=== PATIENT | male | born 1950 | race American Indian/Alaskan Native ===

== ENCOUNTER 2016-04-12 02:03 | Emergency (ER) | payer SELFPAY ==
[2016-04-12 02:37] VITALS: BP 154/90
== END 2016-04-12 03:04 | disposition left against medical advice (07) ==
LOC: ED 02:03
DX: R07.9 Chest pain, unspecified (principal); M79.1 Myalgia; Z53.21 Procedure and treatment not carried out due to patient leaving prior to being seen by health care provider
CPT/HCPCS: 93005; 93010

== ENCOUNTER 2016-04-21 09:40 | Emergency (ER) | payer SELFPAY | END 2016-04-21 22:00 | disposition left against medical advice (07) | LOC: ED 09:40 | DX: M79.1 Myalgia (principal); Z53.21 Procedure and treatment not carried out due to patient leaving prior to being seen by health care provider | CPT/HCPCS: 82962 ==

== ENCOUNTER 2016-04-22 16:45 | Inpatient (IN) | payer MEDICARE, OTHER ==
[2016-04-22] MEDS ORDERED: NACL 0.9% 1000 ML 2,000 ML ONE (17:28)
[2016-04-22] MEDS ORDERED: ROCEPHIN/NS 2 GM/100 ML 2 GM/100 ML BAG IV ONE (17:30)
[2016-04-22] MEDS ORDERED: TYLENOL PO ONE (17:30)
--- NOTE | 2016-04-22 17:31 | Emergency Department Report ---
ED General Adult HPI - General Chief complaint: Altered Mental Status Stated complaint: ALTERED MENTAL STATUS Time Seen by Provider: 04/22/16 17:21 Source: patient, EMS (ems notes not available at time of chart dictation), RN notes reviewed Mode of arrival: Stretcher Limitations: Other (patient is a poor historian.) - History of Present Illness Initial comments: This is a 65-year-old male, previously unknown to me. He is brought to the hospital by EMS. The patient complains of weakness and total body pain. He cannot describe exacerbating or relieving factors. Symptoms are constant. He admits to dry cough, denies abdominal pain, denies chest pain. He can't recall who his primary care doctor is. Family is not currently available. Medication list not currently available. History is limited as the patient is somewhat OF A poor historian. -: unknown Consistency: other (as per hpi) Improves with: other (as per hpi) Worsens with: other (as per hpi) Associated Symptoms: confusion - Related Data Allergies Allergy/AdvReac Type Severity Reaction Status Date / Time No Known Allergies Allergy Verified 04/12/16 02:40 ED Review of Systems ROS: Stated complaint: ALTERED MENTAL STATUS Other details as noted in HPI Constitutional: fever, malaise, weakness Eyes: denies: vision change ENT: denies: epistaxis Respiratory: see HPI Cardiovascular: as per HPI Gastrointestinal: denies: abdominal pain, nausea, diarrhea Genitourinary: denies: urgency, dysuria Musculoskeletal: arthralgia, myalgia Neurological: weakness Psychiatric: denies: anxiety ED Past Medical Hx - Past Medical History Previous Medical History?: Yes Hx Hypertension: Yes Hx Heart Attack/AMI: Yes Hx Diabetes: Yes Additional medical history: Chronic lower back and neck pain - Surgical History Past Surgical History?: Yes Additional Surgical History: left ankle - Social History Smoking Status: Current Every Day Smoker Substance Use Type: Alcohol ED Physical Exam - General Limitations: Physical Limitation General appearance: lethargic, other (the patient is lethargic but arousable. He is alert to name, month, year, location. He is able to state his address.) - Head Head exam: Present: atraumatic, normocephalic - Eye Eye exam: Present: normal appearance. Absent: nystagmus - ENT ENT exam: Present: mucous membranes dry, normal external ear exam - Neck Neck exam: Present: normal inspection, full ROM. Absent: tenderness, meningismus - Respiratory Respiratory exam: Present: normal lung sounds bilaterally. Absent: respiratory distress, wheezes, rales, rhonchi, stridor, chest wall tenderness - Cardiovascular Cardiovascular Exam: Present: normal rhythm, tachycardia, normal heart sounds. Absent: systolic murmur, diastolic murmur, rubs, gallop - GI/Abdominal GI/Abdominal exam: Present: soft, normal bowel sounds. Absent: distended, tenderness, guarding, rebound, rigid, pulsatile mass - Rectal Rectal exam: Present: deferred - exam: Present: normal inspection - Extremities Exam Extremities exam: Present: normal inspection, full ROM, normal capillary refill. Absent: tenderness, pedal edema, joint swelling, calf tenderness - Back Exam Back exam: Present: normal inspection, full ROM. Absent: tenderness, CVA tenderness (R), CVA tenderness (L), muscle spasm, paraspinal tenderness, vertebral tenderness - Neurological Exam Neurological exam: Present: oriented X3, other (Extraocular movements intact. Tongue midline. No facial droop. Facial sensation intact to light touch in the V1, V2, V3 distribution bilaterally. 5 and 5 strength in 4 extremities.. Sensation is intact to light touch in 4 extremities.). Absent: motor sensory deficit - Psychiatric Psychiatric exam: Present: flat affect - Skin Skin exam: Present: warm, dry, intact, normal color. Absent: rash ED Course Vital Signs 04/22/16 04/22/16 04/22/16 16:48 16:50 17:00 Temperature 98.7 F Pulse Rate 127 H 125 H Respiratory 30 H 23 Rate Blood Pressure 147/104 147/104 131/88 O2 Sat by Pulse 96 Oximetry 04/22/16 04/22/16 04/22/16 17:10 17:20 17:25 Temperature 101.0 F H Pulse Rate 120 H 129 H Respiratory 20 28 H Rate Blood Pressure 147/104 132/89 O2 Sat by Pulse 99 96 Oximetry 04/22/16 04/22/16 04/22/16 17:30 17:40 17:50 Temperature Pulse Rate 119 H 114 H 107 H Respiratory 29 H 24 20 Rate Blood Pressure 132/95 132/95 133/97 O2 Sat by Pulse 95 95 93 Oximetry 04/22/16 04/22/16 04/22/16 18:00 18:10 18:20 Temperature Pulse Rate 108 H 110 H 101 H Respiratory 21 22 15 Rate Blood Pressure 155/95 155/95 163/88 O2 Sat by Pulse 65 L 97 96 Oximetry 04/22/16 04/22/16 04/22/16 18:30 18:40 18:50 Temperature Pulse Rate 91 H 99 H 110 H Respiratory 15 15 18 Rate Blood Pressure 181/98 181/98 172/91 O2 Sat by Pulse 98 98 Oximetry 04/22/16 04/22/16 04/22/16 19:00 19:10 19:20 Temperature Pulse Rate 90 93 H 99 H Respiratory 15 16 21 Rate Blood Pressure 160/94 160/94 168/94 O2 Sat by Pulse 95 97 97 Oximetry 04/22/16 04/22/16 04/22/16 19:30 19:40 19:50 Temperature Pulse Rate 96 H 86 94 H Respiratory 20 16 20 Rate Blood Pressure 165/94 165/94 180/90 O2 Sat by Pulse 96 97 98 Oximetry 04/22/16 04/22/16 20:00 20:10 Temperature Pulse Rate 90 86 Respiratory 22 19 Rate Blood Pressure 176/91 176/91 O2 Sat by Pulse 98 98 Oximetry - Reevaluation(s) Reevaluation #1: 04/22/16 17:35 Differential diagnosis: Pneumonia, urinary tract infection, cholecystitis, viremia, bacteremia, influenza Assessment and plan: 65-year-old male with fever, tachycardia, generalized weakness. He is alert to name, month, year, location. There is no neck pain or neck stiffness. Blood cultures, urine cultures, basic laboratory studies, chest x-ray to be obtained. Time lactic acid is to be ordered. Influenza swab ordered. Empiric antibiotic therapy ordered. Aggressive IV fluid resuscitation is ordered. Reevaluation #2: 04/22/16 19:15 Laboratory studies indicate renal failure, hyponatremia, rhabdomyolysis. Influenza swab is still pending. Case is discussed with nephrology, Dr. Barth. Given that patient obviously meets sepsis criteria, has acute renal failure, has rhabdomyolysis, he requires aggressive fluid resuscitation. 3 L of IV fluid have been ordered. Nephrology recommends that after the 3 L of IV fluid, one half normal saline be initiated with 75 mEq of sodium bicarbonate, running at 125 mL per hour. Nephrology further states that it is okay to start the strip concomitantly with the 3 L of normal saline. He further recommends that after the 3 L of normal saline have completed, the patient should be started on normal saline as a drip at 125 mL per hour, to be run concomitantly with the sodium bicarbonate drip. He also recommends a urine sodium, and urine osmolality. He also recommends serial basic metabolic panel's every 4 hours. Case is discussed with the Hospital physician, Dr. Braun, who accepts the patient to his service. I have contacted the pharmacist, and requested the sodium bicarbonate drip. ED Medical Decision Making - Lab Data Result diagrams: 04/22/16 17:30 04/22/16 17:30 Vital Signs 04/22/16 04/22/16 17:00 17:25 Temperature 98.7 F 101.0 F H Pulse Rate 129 H Respiratory 25 H Rate Blood Pressure 147/104 O2 Sat by Pulse 97 Oximetry - EKG Data When compared to previous EKG there are: previous EKG unavailable 04/22/16 17:36 Sinus tachycardia, 120 bpm, poor R-wave progression, atrial enlargement, abnormal EKG, not consistent with STEMI, nonspecific changes when compared to old EKG. Critical care attestation.: If time is entered above; I have spent that time in minutes in the direct care of this critically ill patient, excluding procedure time. ED Disposition Clinical Impression: Acute febrile illness, Rhabdomyolysis, Renal failure, Hyponatremia Disposition: OP ADMITTED IP TO THIS HOSP Is pt being admited?: Yes Condition: Good
[2016-04-22 17:52] LABS: Hematocrit 48.8 % (35.5-45.6); Hemoglobin 16.8 gm/dl (11.8-15.2); Mean Corpuscular HGB Conc 34 % (32-34); Mean Corpuscular Hemoglobin 32 pg (28-32); Mean Corpuscular Volume 91 fl (84-94); Platelet Count 154 K/mm3 (140-440); Red Blood Count 5.34 M/mm3 (3.65-5.03)
[2016-04-22 17:53] LABS: Urine Drugs of Abuse Note Disclamer
[2016-04-22] MEDS ORDERED: NACL 0.9% 500 ML IV SCH (18:00)
[2016-04-22 18:11] LABS: Bilirubin,Urine NEG (Negative); Ketones,Urine TR mg/dL (Negative)
[2016-04-22 18:12] LABS: Bacteria,Urine 1+ /HPF (Negative); Blood,Urine LG (Negative); Leukocyte Esterase,Urine NEG (Negative); Mucus,Urine FEW /HPF; Nitrite,Urine NEG (Negative)
--- NOTE | 2016-04-22 18:20 | Admit Criteria Form ---
Admission Criteria Documentation: MUSCULOSKELETAL DISEASE GRG Clinical Indications for Admission to Inpatient Care (Place 'X' for any and all applicable criteria): Hospital admission is needed for appropriate care of the patient because of ANY ONE of the following: [ ]I. Fracture, dislocation, or other musculoskeletal injury requiring inpatient care(medical) as indicated by ANY ONE of the following(4)(5)(6)(7) [ ]a) Vertebral fracture requiring observation for instability or neurologic compromise (8) [ ]b) Compartment syndrome (proven or cannot be ruled out during observation level of care) (9) [ ]c) Limb-threatening injury [ ]d) Major injury requiring inpatient stabilization such as traction initiation or external fixation before internal fixation or closure of complex or open fracture [ ]e) Major injury requiring inpatient treatment after emergency or observation level care (as appropriate) [ ]f) Severe pain requiring acute inpatient management [ ]II. Newly diagnosed or suspected bone, joint, or orthopedic device infection (e.g., osteomyelitis, septic arthritis) needing ANY ONE of the following(1)(2)(3) [ ]a) IV antibiotics that cannot be initiated in other than inpatient setting (e.g., patient too unstable or home infusion not available) [ ]b) Device removal or replacement [ ]c) Bone or soft tissue debridement [ ]d) Joint drainage (drain placement or repetitive aspirations) [ ]III. Severe rheumatologic disease (e.g., systemic lupus erythematosus, rheumatoid arthritis) with complications or comorbidities (Also use Optimal Recovery Care Criteria or General Recovery Criteria as appropriate on the basis of predominant condition), including ANY ONE of the following(10 )(11)(12)(13) [ ]a) Severe infection (e.g., UPFITTER infection, sepsis) (14) [ ]b) Respiratory complications, including ANY ONE of the following: [ ]i) Pleural effusion with respiratory compromise [ ]ii) Pulmonary hypertension with congestive failure [ ]iii) Respiratory failure [ ]iv) Pulmonary hemorrhage (15) [ ]c) Hematologic disease, including ANY ONE of the following: [ ]i) Coagulopathy with bleeding [ ]ii) Thrombosis with hypercoagulable state [ ]iii) Thrombotic thrombocytopenic purpura [ ]d) Cerebritis with seizures, psychosis, or other severe abnormalities [ ]e) Vertebral destruction with monitoring needed for cervical myelopathy& possible respiratory compromise [ ]f) Exacerbation that requires inpatient treatment (e.g., intravenous immunosuppression) (16) [ ]g) Acute renal failure [ ]IV. Severe vasculitis with complications or comorbidities (Also use Optimal Recovery Care Criteria or General Recovery Criteria as appropriate on the basis of predominant condition), including ANY ONE of the following(11)(12)(17)(18)(19)(20) [ ]a) UPFITTER vasculitis with seizures, psychosis, or other severe abnormalities (22) [ ]b) Renal failure (16) [ ]c) Pulmonary hemorrhage (15) [ ]d) Cerebral infarction [ ]e) Gastrointestinal ischemia [ ]f) Gangrene or threatened amputation [ ]g) Exacerbation that requires inpatient treatment (e.g., intravenous immunosuppression) (19)(21) [ ]V. Severe myopathy as indicated by ANY ONE of the following (28)(29) [ ]a) New onset of airway compromise or inability to swallow [ ]b) Respiratory deterioration with observation needed for impending respiratory failure [ ]c) Exacerbation that requires inpatient treatment (e.g., intravenous immunosuppression) [ ]. Severe gout (crystal arthropathy) as indicated by ANY ONE of the following (23)(24) [ ]a) Severe pain requiring acute inpatient management [ ]b) Exacerbation that requires inpatient treatment (e.g., intravenous treatment) [X]VII.Rhabdomyolysis and ANY ONE of the following (25)(26)(27) [X]a) Acute renal failure [X]b) Need for intravenous hydration after emergency or observation level care (as appropriate) [ ]c) Inability to maintain oral hydration [X]d) Change in mental status [X]e) Electrolyte abnormality that remains after emergency or observation level care (as appropriate) [ ]VIII Post amputation complication, as indicated by ANY ONE of the following [ ]a) Infection [ ]b) Dehiscence [ ]c) Myodesis failure [ ]IX. Severe pain requiring acute inpatient management as indicated by ALL of the following (30)(31)(32) [ ]a) Continuous or frequent (e.g., every 2 to 4 hrs) parenteral analgesics required [A] [ ]b) Rapid improvement expected from treatment or acute intervention ( e.g., surgery, anesthesia procedure[B] [ ]X. Musculoskeletal Disease and ALL of the following: [ ]a) Symptom or finding for which emergency and observation care have failed or are not considered appropriate (Use General Criteria: Observation Care as appropriate) [ ]b) Presence of ANY ONE of the following [ ]i) A General Admission Criteria [ ]ii) A Pediatric General Admission Criteria The original [facility] content created by [facility] has been revised. The portions of the content which have been revised are identified through the use of italic text or in bold, and [facility] has neither reviewed nor approved the modified material. All other unmodified content is copyright [facility]. Please see references footnoted in the original [facility] edition 2016 Admission Criteria Met: Yes
[2016-04-22 18:40] LABS: Albumin 3.8 g/dL (3.9-5); Albumin/Globulin Ratio 0.7 %; BUN/Creatinine Ratio 10.8; Bilirubin,Total 1.3 mg/dL (0.1-1.2); Calcium 8.8 mg/dL (8.4-10.2); Chloride 73.4 mmol/L (98-107); Magnesium 2.1 mg/dL (1.7-2.3); Potassium 4.1 mmol/L (3.6-5.0); Total Protein 9.3 g/dL (6.3-8.2)
[2016-04-22 18:56] LABS: Basophils % (Manual) 0 % (0.0-1.8); Blastocytes % (Manual) 0 %; Eosinophils % (Manual) 0 % (0.0-4.3)
[2016-04-22 18:58] LABS: Anisocytosis 1+; Diff Status Complete; Large Platelets 1+; Platelet Estimate Consistent w Auto
[2016-04-22] MEDS ORDERED: NACL 0.9% 1000 ML 1,000 ML IV ONE (19:09)
--- NOTE | 2016-04-22 19:38 | XRay Report ---
FINAL REPORT PROCEDURE: XR CHEST 1V AP TECHNIQUE: Chest radiograph anteroposterior view. CPT 38105 HISTORY: fever ? PNA COMPARISON: No prior studies are available for comparison. FINDINGS: Heart: Normal. Mediastinum/Vessels: Normal. Lungs/Pleural space: Mild COPD with mild peribronchial cuffing. Calcified granulomata suspected in the left lower medial lung zone Bony thorax: No acute osseous abnormality. Life support devices: None. IMPRESSION: No acute cardiopulmonary abnormality.
[2016-04-22 19:53] LABS: Sodium, Urine 22 mEq/L
[2016-04-22] MEDS ORDERED: NACL 0.45% 1000 ML 1,000 ML with SODIUM BICARBONATE 75 MEQ IV ONE (20:00)
[2016-04-22] MEDS ORDERED: NACL 3% 500 ML IV ONE (22:18)
[2016-04-22] MEDS ORDERED: D5NS 1,000 ML IV SCH (23:00)
[2016-04-22] MEDS: TAMIFLU PO SCH (23:42)
[2016-04-23 00:53] LABS: Creatine Kinase MB 99.9 ng/mL (0.0-4.0)
[2016-04-23 06:11] LABS: Hematocrit 45.7 % (35.5-45.6); Hemoglobin 15.5 gm/dl (11.8-15.2); Mean Corpuscular HGB Conc 34 % (32-34); Mean Corpuscular Hemoglobin 31 pg (28-32); Mean Corpuscular Volume 91 fl (84-94); Platelet Count 114 K/mm3 (140-440); Red Cell Distribution Width 13.2 % (13.2-15.2); White Blood Count 10.4 K/mm3 (4.5-11.0)
[2016-04-23 06:24] LABS: Albumin 2.8 g/dL (3.9-5); Albumin/Globulin Ratio 0.7 %; BUN/Creatinine Ratio 11.07; Bilirubin,Total 0.6 mg/dL (0.1-1.2); Calcium 7.5 mg/dL (8.4-10.2); Chloride 84.4 mmol/L (98-107); Potassium 4.4 mmol/L (3.6-5.0); Total Protein 6.8 g/dL (6.3-8.2)
[2016-04-23 07:28] LABS: Basophils % (Manual) 0 % (0.0-1.8); Blastocytes % (Manual) 0 %; Eosinophils % (Manual) 0 % (0.0-4.3)
[2016-04-23 07:29] LABS: Anisocytosis 1+; Burr Cells Few; Diff Status Complete; Large Platelets Rare
[2016-04-23 07:30] LABS: Platelet Estimate Consistent w Auto; Polychromasia Few
--- NOTE | 2016-04-23 08:34 | Event Note ---
Date: 04/22/16 See H/p in reports Hyponatremia -severe Rhabdomyolysis Acute renal failure Viral syndrome
[2016-04-23] MEDS ORDERED: NACL 3% 500 ML IV ONE (08:56)
[2016-04-23] MEDS ORDERED: TYLENOL PO ONE (09:44)
[2016-04-23] MEDS: TAMIFLU PO SCH ×2 (10:03→22:07)
--- NOTE | 2016-04-23 10:12 | History and Physical Report ---
CHIEF COMPLAINT: 1. Altered mental status. 2. Severe weakness. 3. Fever. HISTORY OF PRESENT ILLNESS: A 65-year-old -[place] male with history of hypertension, coronary artery disease, type 2 diabetes, chronic low back pain, who comes to the hospital by EMS. Complains of weakness and body aches all over, and also fever, also had dry cough. Poor historian. He cannot tell his medications. He apparently had a fever of 101, but his most important complaint is weakness and body aches all over. Cough is nonproductive. No chest pain. PAST MEDICAL HISTORY: As mentioned, hypertension, coronary artery disease, type 2 diabetes, chronic low back pain, and neck pain. PAST SURGICAL HISTORY: Left ankle surgery. SOCIAL HISTORY: He smokes about a pack a day. No alcohol, no recreational drugs. FAMILY HISTORY: Significant for hypertension. REVIEW OF SYSTEMS: CONSTITUTIONAL: Fever and generalized body aches. Altered sensorium. HEENT: No sore throat, no postnasal drip. CARDIOVASCULAR AND RESPIRATORY: No shortness of breath, no chest pain, no wheezing. No wheezing and dry cough present. GASTROINTESTINAL: No nausea, no vomiting, no diarrhea. GENITOURINARY: No dysuria, no flank pain. MUSCULOSKELETAL: Has muscle pain all over, especially the thigh and the legs. CENTRAL NERVOUS SYSTEM: No syncope, no seizures. Altered sensorium present. SKIN: No rashes. PSYCHIATRIC: No depression. No suicidal ideation. A 14-point review of systems done, other than fever, joint pains, and dry cough. Review of systems essentially negative. PHYSICAL EXAMINATION: GENERAL: Elderly male, cooperative during examination. VITAL SIGNS: Temperature is 98.7, pulse is 127, respirations 30, blood pressure 147/104, repeat blood pressure was 132/95. HEENT: Dry mucous membranes. Pupils equal and reactive. NECK: Supple, no lymphadenopathy, no thyromegaly. LUNGS: Clear to auscultation and percussion. Good air entry. CARDIOVASCULAR: S1, S2 heard. No gallop, no murmur, no rub. Apical impulse in the left fifth intercostal space and midclavicular line. ABDOMEN: Soft and benign. No hepatosplenomegaly. No guarding, no rigidity. Hernial orifices are normal. EXTREMITIES: Good pedal pulses. No pedal edema. CENTRAL NERVOUS SYSTEM: Alert and oriented x4, but lethargic, easily arousable. SKIN: Normal. LABORATORY DATA: Significant for white count of 13,000, H and H 16.8 and 48.8, platelet count is 154,000. Sodium is 116, potassium is 4.1, BUN and creatinine is 27 and 2.5. Lactic acid is 3.7, creatinine kinase is 41,814. AST, ALT are high 970 and 192. Total bilirubin is 1.3. Urinalysis shows osmolality of 370 with wbc's are negative. Drug screen is negative. ASSESSMENT AND PLAN: 1. Severe viral syndrome. IV fluids for the time being, Tamiflu started. 2. Hyponatremia, severe with IV normal saline and 3% saline also started. 3% saline and 50 mL per hour for 10 hours, repeat as necessary. 3. Acute renal failure secondary to rhabdomyolysis. IV fluids for the time being. Nephrology consulted. 4. Rhabdomyolysis severe. IV fluids to prevent acute renal failure. 5. Transaminitis, AST, ALT are high, possibly part of the viral syndrome. We will monitor the liver enzymes. GI consultation if necessary. 6. Deep venous thrombosis prophylaxis, Lovenox 40 mg subcutaneous daily. In summary, the patient has rhabdomyolysis, hyponatremia, acute renal failure, and transaminitis, all can be attributed to severe viral syndrome. IV fluids and Tamiflu for now. Close monitoring. PROGNOSIS: Fair to guarded. JOB# [id number] [facility] MANUEL/[place]
--- NOTE | 2016-04-23 11:58 | Query-Infection ---
Dear Dr. Saúl Diaz Date: April 23, 2016 Broker Assistant/CDS: Sourav Clinton Phone#: Exercise your independent professional judgment when responding to this query. Questions asked do not imply a particular answer is desired or expected. We greatly appreciate your clarification on this issue. Clinical Documentation States: 65 y/o M with history of HTN, heart attack/AMI, DM & chronic lower back & neck pain is admitted for AMS. ED Note by Dr. Smith on 04/22 states : "Laboratory studies indicate renal failure, hyponatremia, rhabdomyolysis" Clinical findings show: (please check applicable parameters) 04/22 Temp 101.0 H (17:25) Pulse 127 H (16:50) Resp 30 H (16:50) WBC 13.0 H Lactate 2.3 H Medications : IV Ceftriaxone 2g x 1 3 General parameters [ x] Fever (core temp >38.30C or 100.40F) [ ] Hypothermia (core temp <36C) [ x] Heart rate >90 bpm [ ] Tachypnea: >20 bpm or pCO2 < 32 mmHg [ x] Altered mental status [ ] Significant edema / +ve fluid balance (>20 ml/kg 24 h) [ ] Hyperglycemia (Bl. glucose >110 mg/dl) w/o diabetes Inflammatory parameters [ x] Leukocytosis (white blood cell count >12,000/l) [ ] Leukopenia (white blood cell count <4,000/l) [ ] Bandemia (immature WBC > 10%) [ ] Leucocyte Left Shift [ ] Plasma procalcitonin>2 SD above the normal value Hemodynamic and tissue perfusion parameters [ ] Arterial hypotension(SBP <90 mmHg, MAP <70 mmHg,or a SBP drop >40 mmHg in adults) [ ] Hyperlactatemia (>3 mmol/l) [ ] Anion Gap (> 11mEG/l) [ ] Decreased capillary refill or mottling Organ dysfunction parameters [ ] Arterial hypoxemia (PaO2/FIO2 <300) [ ] Creatinine increase =0.5 mg/dl [ ] Acute oliguria (urine output <0.5 ml | kg |h or 45 mM/l for at least 2 hrs) [ ] Coagulation abnormalities (INR >1.5 or activated partial thromboplastin time >60 s) [ ] Ileus (absent teetee wel sounds) [ ] Thrombocytopenia (platelet count <100,000/l) [ ] Hyperbilirubinemia (plasma total bilirubin >4 mg/dl) According to the clinical indications above, can Bacteremia be further specified? If so, please indicate below and in your Progress Notes and/ or Discharge Summary. Indicate if the condition was present on admission. PHYSICIAN RESPONSE: [ X] Sepsis [ ] Severe Sepsis [ ] Septic Shock [ ] Septicemia [ ] Sepsis now resolved [ ] SIRS due to non-infectious cause with organ dysfunction [ ] SIRS due to non-infectious cause without organ dysfunction [ ] Other: [ ] Comment/Explanation: Present on Admission: [ X] Yes (Y) [ ] Clinically undeterminable (W) [ ] No (N) [ ] Ruled Out Please also document response in your Progress Notes and/or Discharge Summary and indicate if the condition was present on admission Notes: SIRS/ SIRS WITH ORGAN DYSFUNCTION Systemic inflammatory response syndrome (SIRS) generally refers to the systemic response to trauma/polanco or other insult such as Acute Myocardial Infarction, Acute Pancreatitis, and Major Surgery with symptoms including fever, tachycardia , tachypnea, and leukocytosis (1). BACTEREMIA Presence of viable bacteria in the circulating blood (2). This term is reserved for patients that do not manifest above SIRS response. SEPTICEMIA Generally refers to a systemic disease associated with the presence of pathological microorganisms or toxins in the blood, which can include bacteria, viruses, fungi or other organisms (1). SEPSIS Generally refers to SIRS due infection (1). SEVERE SEPSIS Generally refers to sepsis associated with acute organ dysfunction (1). SEPTIC SHOCK Generally refers to circulatory failure associated with severe sepsis (2), and defined as hypotension or hypoperfusion despite adequate fluid resuscitation (1 hour) (3). REFERENCES: 1. [place] [employer]/Society of Critical Care Medicine Consensus Conference. Definitions for sepsis and organ failure and guidelines for the use of innovative therapies in sepsis. Critical Care Med 1992;20:864 - 74. 2. Jimmy kay MM, Moises MP, Ganesh JIMBO, Rodo E, Vincent D, Alistair D, Alexx J, Alesia SM , Nadeem JL, Shannon G; International Sepsis Definitions Conference. 2001 SCCM/ESICM/ACCP/ATS/SIS International Sepsis Definitions Conference. Intensive Care Med. 2002 Apr;29(4):530-8. Epub 2002Jun 15. Review. PubMed PMID:[id number] 3. ICD-9-CM Official Guidelines for Coding and Reporting 4. Medscape Drugs, Diseases and Procedures references 5. [employer] Textbook of Internal Medicine. 18th Edition MTDD
--- NOTE | 2016-04-23 12:26 | Consultation ---
History of Present Illness - History of Present Illness Thank you for the consultation Patient is a very poor historian and appears not to be a very compliant patient Assessment and plan Renal failure in a patient who is 65-year-old currently admitted with, what appears to be acute renal failure slowly improving with rhabdomyolysis, patient has been seen and followed by [facility] [place] but does not recall having any kidney problems Rhabdomyolysis continue to monitor no indication for renal replacement therapy renal function appears to be improving monitor serial creatinine kinase etiology of rhabdomyolysis appears to be unclear Patient needs full workup for renal failure given that he is a very poor historian he is very poorly involving his healthcare as well Hyponatremia needs to be monitored closely to follow,chest x-ray unremarkable patient does have chronic cough Overall no acute emergent indication for renal replacement therapy I did want her to discuss with his family but patient told me not to he has a daughter in [place], but according to the patient her phone is not working. Extensively counseled and educated about the nature and severity of renal issues his overall long-term prognosis remains guarded to poor I have educated him to the best of my knowledge and believe regarding his current health status will change the bicarbonate drip and follow history of present illness Patient is a very poor historian he is 65-year-old and denies having any prior history of chronic kidney disease. He does not use any follow-up nonsteroidal drug any BC O Goody's powder either. He was seen by [facility] approximately a month ago and that was for his routine checkup. Patient does not recall his medications. He denies having any difficulty voiding does complain of generalized aches and pain appetite has been poor in the last 2-3 days. No history of any hematuria proteinuria pyuria Past medical history Patient stated that I do not have any medical problem Current allergies: None Current medication patient says that he is not taking any Social history patient still continues to smoke Denies any history of alcohol drug or substance abuse family history: Unremarkable for any renal related disorder Review of systems positive for generalized aches and pain cough nonproductive poor appetite ongoing tobacco use otherwise essentially unremarkable for all other system he wants to leave the hospital today as he has to pay some bills and is not concerned about his health at this point according to him that is more important than this Please be mindful that patient is extremely poor historian Medications and Allergies Allergies Allergy/AdvReac Type Severity Reaction Status Date / Time No Known Allergies Allergy Verified 04/12/16 02:40 Active Meds: Active Medications Dextrose/Sodium Chloride (D5ns) 1,000 mls @ 100 mls/hr IV DIRECT TAMMIE Sodium Chloride (Nacl 3%) 500 mls @ 40 mls/hr IV DIRECT ONE Stop: 04/23/16 21:25 Last Admin: 04/23/16 09:55 Dose: 40 mls/hr Oseltamivir Phosphate (Tamiflu) 75 mg PO BID TAMMIE Stop: 04/27/16 10:01 Last Admin: 04/23/16 10:03 Dose: 75 mg Exam - Vital Signs Vital signs: Vital Signs BP 147/104 04/22/16 16:48 - General Appearance General appearance: appears stated age (no acute distress) EENT: mucous membranes dry (somewhat dry today) Respiratory: Clear to Ascultation (no crackles rales or wheezes smells of tobacco) Heart: regular (S1-S2 normal no S3-S4) Gastrointestinal: Present: normal (soft nontender no organomegaly no renal bruit ) Integumentary: no rash (dry skin no edema peripheral pulses palpable no muscle tenderness) Neurologic: other (he is alert awake and follows commands no asterixis) Psychiatric: other (affect is flat) Results - Lab Results 04/23/16 04:27 04/23/16 04:27 reviewed from this admission Most recent lab results Calcium 7.5 mg/dL (8.4-10.2) L 04/23/16 04:27 Magnesium 2.1 mg/dL (1.7-2.3) 04/22/16 17:30 Urine Sodium 22 mEq/L 04/22/16 19:14
[2016-04-23] MEDS: SODIUM BICARBONATE 100 MEQ in STERILE WATER 1,000 ML IV SCH (22:07)
[2016-04-24] MEDS: TAMIFLU PO SCH ×2 (09:35→22:17)
--- NOTE | 2016-04-24 09:42 | Progress Note ---
Assessment and Plan possibly acute renal failure patient needs close monitoring of labs intake and output maintain hydration rule out any possibility of underlying chronic kidney disease patient is a very poor historian Hyponatremia clinically stable slowly improving Will obtain renal ultrasonogram today Rhabdomyolysis needs to monitor CPK level periodically No complaints of any myalgias Does have cough which is mostly dry Renal prognosis is guarded at this time Subjective Interval history: patient is seen today for follow-up of multiple renal related issues Denies any complaints of chest pain pressure or shortness of breath myalgias Events of 24 hours noted Wants to go home soon Objective - Vital Signs Vital signs: Vital Signs - 12hr 04/23/16 04/24/16 04/24/16 22:00 01:31 01:37 Temperature 97.4 F L Pulse Rate [ 85 85 Left] Pulse Rate [ 82 Right Radial] Respiratory 18 20 18 Rate Blood Pressure [Left Arm] Blood Pressure 137/75 [Right Radial Artery] O2 Sat by Pulse 95 98 95 Oximetry 04/24/16 04:10 Temperature 97.9 F Pulse Rate [ 85 Left] Pulse Rate [ Right Radial] Respiratory 18 Rate Blood Pressure 156/74 [Left Arm] Blood Pressure [Right Radial Artery] O2 Sat by Pulse 100 Oximetry - General Appearance General appearance: appears stated age EENT: mucous membranes moist Neck: no JVD Respiratory: Present: Clear to Ascultation (no rales or wheezes) Cardiology: regular - Lab 04/24/16 10:03 04/24/16 10:03 Most recent lab results Calcium 7.5 mg/dL (8.4-10.2) L 04/23/16 04:27 Magnesium 2.1 mg/dL (1.7-2.3) 04/22/16 17:30 Urine Creatinine 46.6 mg/dL (0.1-20.0) H 04/24/16 08:04 Urine Sodium 95 mEq/L 04/24/16 08:04
[2016-04-24 11:04] LABS: Basophils % (Auto) 0.2 % (0.0-1.8); Eosinophils % (Auto) 0.2 % (0.0-4.3); Mean Corpuscular HGB Conc 34 % (32-34); Mean Corpuscular Hemoglobin 32 pg (28-32); Mean Corpuscular Volume 92 fl (84-94); Platelet Count 111 K/mm3 (140-440); Red Blood Count 3.81 M/mm3 (3.65-5.03); Red Cell Distribution Width 12.8 % (13.2-15.2); White Blood Count 8.3 K/mm3 (4.5-11.0)
[2016-04-24 11:11] LABS: Albumin 2.3 g/dL (3.9-5); Albumin/Globulin Ratio 0.6 %; BUN/Creatinine Ratio 11.17; Bilirubin,Total 0.6 mg/dL (0.1-1.2); Calcium 7.3 mg/dL (8.4-10.2); Chloride 90.8 mmol/L (98-107); Potassium 3.7 mmol/L (3.6-5.0); Total Protein 5.9 g/dL (6.3-8.2)
[2016-04-24] MEDS: SODIUM BICARBONATE 100 MEQ in STERILE WATER 1,000 ML IV SCH ×2 (11:11→21:21)
[2016-04-24] MEDS: APRESOLINE IV SCH ×2 (17:25→18:15)
[2016-04-25] MEDS: APRESOLINE IV SCH ×4 (01:01→18:51)
--- NOTE | 2016-04-25 07:28 | Progress Note ---
Assessment and Plan - Patient Problems (1) Rhabdomyolysis Current Visit: Yes Status: Acute Qualifiers: Rhabdomyolysis type: R Encounter type: E Plan to address problem: IVF, bicarbonate drip, monitor uop q shift, ck in am. (2) Hyponatremia Current Visit: Yes Status: Acute Plan to address problem: supportive care, IVF replacement. (3) Renal failure Current Visit: Yes Status: Acute Plan to address problem: monitor uop q shift,IVF replacement, supportive care. (4) DVT prophylaxis Current Visit: Yes Status: Acute History Interval history: Pt resting comfortable in bed, Pt denies pain. Pt care plan discussed, No reported nursing events. Hospitalist Physical - Constitutional Vitals: Temp Pulse Resp BP Pulse Ox 97.3 F L 74 20 135/73 99 04/25/16 05:06 04/25/16 06:12 04/25/16 05:06 04/25/16 06:12 04/25/16 05:06 General appearance: Present: no acute distress - EENT Eyes: Present: PERRL, EOM intact ENT: hearing intact - Neck Neck: Present: supple - Respiratory Respiratory: bilateral: CTA - Cardiovascular Rhythm: regular Heart Sounds: Present: S1 & S2 - Extremities Extremities: no ischemia Peripheral Pulses: within normal limits - Abdominal General gastrointestinal: soft, non-tender, non-distended - Integumentary Integumentary: Present: clear, dry - Psychiatric Psychiatric: appropriate mood/affect, cooperative - Neurologic Neurologic: CNII-XII intact Results - Labs CBC & Chem 7: 04/24/16 10:03 04/24/16 10:03 Labs: Laboratory Last Values WBC 8.3 K/mm3 (4.5-11.0) 04/24/16 10:03 RBC 3.81 M/mm3 (3.65-5.03) 04/24/16 10:03 Hgb 12.0 gm/dl (11.8-15.2) D 04/24/16 10:03 Hct 35.0 % (35.5-45.6) L D 04/24/16 10:03 MCV 92 fl (84-94) 04/24/16 10:03 MCH 32 pg (28-32) 04/24/16 10:03 MCHC 34 % (32-34) 04/24/16 10:03 RDW 12.8 % (13.2-15.2) L 04/24/16 10:03 Plt Count 111 K/mm3 (140-440) L 04/24/16 10:03 Lymph % (Auto) 7.8 % (13.4-35.0) L 04/24/16 10:03 [place] % (Auto) 9.2 % (0.0-7.3) H 04/24/16 10:03 Eos % (Auto) 0.2 % (0.0-4.3) 04/24/16 10:03 Baso % (Auto) 0.2 % (0.0-1.8) 04/24/16 10:03 Lymph # 0.6 K/mm3 (1.2-5.4) L 04/24/16 10:03 [place] # 0.8 K/mm3 (0.0-0.8) 04/24/16 10:03 Eos # 0.0 K/mm3 (0.0-0.4) 04/24/16 10:03 Baso # 0.0 K/mm3 (0.0-0.1) 04/24/16 10:03 Add Manual Diff Complete 04/23/16 04:27 Total Counted 100 04/23/16 04:27 Seg Neutrophils % 82.6 % (40.0-70.0) H 04/24/16 10:03 Seg Neuts % (Manual) 61.0 % (40.0-70.0) 04/23/16 04:27 Band Neutrophils % 29.0 % 04/23/16 04:27 Lymphocytes % (Manual) 7.0 % (13.4-35.0) L 04/23/16 04:27 Reactive Lymphs % (Man) 0 % 04/23/16 04:27 Monocytes % (Manual) 3.0 % (0.0-7.3) 04/23/16 04:27 Eosinophils % (Manual) 0 % (0.0-4.3) 04/23/16 04:27 Basophils % (Manual) 0 % (0.0-1.8) 04/23/16 04:27 Metamyelocytes % 0 % 04/23/16 04:27 Myelocytes % 0 % 04/23/16 04:27 Promyelocytes % 0 % 04/23/16 04:27 Blast Cells % 0 % 04/23/16 04:27 Nucleated RBC % Not Reportable 04/23/16 04:27 Seg Neutrophils # 6.9 K/mm3 (1.8-7.7) 04/24/16 10:03 Seg Neutrophils # Man 6.3 K/mm3 (1.8-7.7) 04/23/16 04:27 Band Neutrophils # 3.0 K/mm3 04/23/16 04:27 Lymphocytes # (Manual) 0.7 K/mm3 (1.2-5.4) L 04/23/16 04:27 Abs React Lymphs (Man) 0.0 K/mm3 04/23/16 04:27 Monocytes # (Manual) 0.3 K/mm3 (0.0-0.8) 04/23/16 04:27 Eosinophils # (Manual) 0.0 K/mm3 (0.0-0.4) 04/23/16 04:27 Basophils # (Manual) 0.0 K/mm3 (0.0-0.1) 04/23/16 04:27 Metamyelocytes # 0.0 K/mm3 04/23/16 04:27 Myelocytes # 0.0 K/mm3 04/23/16 04:27 Promyelocytes # 0.0 K/mm3 04/23/16 04:27 Blast Cells # 0.0 K/mm3 04/23/16 04:27 WBC Morphology Not Reportable 04/23/16 04:27 Hypersegmented Neuts Not Reportable 04/23/16 04:27 Hyposegmented Neuts Not Reportable 04/23/16 04:27 Hypogranular Neuts Not Reportable 04/23/16 04:27 Smudge Cells Not Reportable 04/23/16 04:27 Toxic Granulation Not Reportable 04/23/16 04:27 Toxic Vacuolation Not Reportable 04/23/16 04:27 Dohle Bodies Not Reportable 04/23/16 04:27 Pelger-Huet Anomaly Not Reportable 04/23/16 04:27 Mendy Rods Not Reportable 04/23/16 04:27 Platelet Estimate Consistent w auto 04/23/16 04:27 Clumped Platelets Not Reportable 04/23/16 04:27 Plt Clumps, EDTA Not Reportable 04/23/16 04:27 Large Platelets Rare 04/23/16 04:27 Giant Platelets Not Reportable 04/23/16 04:27 Platelet Satelliting Not Reportable 04/23/16 04:27 Plt Morphology Comment Not Reportable 04/23/16 04:27 RBC Morphology Not Reportable 04/23/16 04:27 Dimorphic RBCs Not Reportable 04/23/16 04:27 Polychromasia Few 04/23/16 04:27 Hypochromasia Not Reportable 04/23/16 04:27 Poikilocytosis Not Reportable 04/23/16 04:27 Anisocytosis 1+ 04/23/16 04:27 Microcytosis Not Reportable 04/23/16 04:27 Macrocytosis Not Reportable 04/23/16 04:27 Spherocytes Not Reportable 04/23/16 04:27 Pappenheimer Bodies Not Reportable 04/23/16 04:27 Sickle Cells Not Reportable 04/23/16 04:27 Target Cells Not Reportable 04/23/16 04:27 Tear Drop Cells Not Reportable 04/23/16 04:27 Ovalocytes Not Reportable 04/23/16 04:27 Helmet Cells Not Reportable 04/23/16 04:27 Altman-[place]unker Bodies Not Reportable 04/23/16 04:27 [place] Rings Not Reportable 04/23/16 04:27 Joanne Cells Few 04/23/16 04:27 Bite Cells Not Reportable 04/23/16 04:27 Crenated Cell Not Reportable 04/23/16 04:27 Elliptocytes Not Reportable 04/23/16 04:27 Acanthocytes (Spur) Not Reportable 04/23/16 04:27 Rouleaux Not Reportable 04/23/16 04:27 Hemoglobin C Crystals Not Reportable 04/23/16 04:27 Schistocytes Not Reportable 04/23/16 04:27 Malaria parasites Not Reportable 04/23/16 04:27 Jeevan Bodies Not Reportable 04/23/16 04:27 Hem Pathologist Commnt No 04/23/16 04:27 Sodium 129 mmol/L (137-145) L D 04/24/16 10:03 Potassium 3.7 mmol/L (3.6-5.0) 04/24/16 10:03 Chloride 90.8 mmol/L (98-107) L 04/24/16 10:03 Carbon Dioxide 23 mmol/L (22-30) 04/24/16 10:03 Anion Gap 19 mmol/L 04/24/16 10:03 BUN 38 mg/dL (9-20) H 04/24/16 10:03 Creatinine 3.4 mg/dL (0.8-1.5) H 04/24/16 10:03 Estimated GFR 22 ml/min 04/24/16 10:03 BUN/Creatinine Ratio 11.17 % 04/24/16 10:03 Glucose 88 mg/dL (75-100) 04/24/16 10:03 POC Glucose 93 (70-105) 04/23/16 07:27 Lactic Acid 2.3 mmol/L (0.7-2.0) H* 04/22/16 20:58 Uric Acid 5.8 mg/dL (3.5-7.6) 04/23/16 19:48 Calcium 7.3 mg/dL (8.4-10.2) L 04/24/16 10:03 Magnesium 2.1 mg/dL (1.7-2.3) 04/22/16 17:30 Total Bilirubin 0.6 mg/dL (0.1-1.2) 04/24/16 10:03 AST 540 units/L (5-40) H 04/24/16 10:03 ALT 142 units/L (7-56) H 04/24/16 10:03 Alkaline Phosphatase 46 units/L (35-129) 04/24/16 10:03 Total Creatine Kinase 64531 units/L (55-170) H 04/24/16 10:03 CK-MB (CK-2) 99.9 ng/mL (0.0-4.0) H 04/23/16 00:09 CK-MB (CK-2) Rel Index 0.3 (0-4) 04/23/16 00:09 Total Protein 5.9 g/dL (6.3-8.2) L 04/24/16 10:03 Albumin 2.3 g/dL (3.9-5) L 04/24/16 10:03 Albumin/Globulin Ratio 0.6 % 04/24/16 10:03 TSH 0.855 mlU/mL (0.270-4.200) 04/23/16 19:47 Urine Color Naima (Yellow) 04/22/16 17:48 Urine Turbidity Cloudy (Clear) 04/22/16 17:48 Urine pH 5.0 (5.0-7.0) 04/22/16 17:48 Ur Specific [place] 1.014 (1.003-1.030) 04/22/16 17:48 Urine Protein 100 mg/dl mg/dL (Negative) 04/22/16 17:48 Urine Glucose (UA) Neg mg/dL (Negative) 04/22/16 17:48 Urine Ketones Tr mg/dL (Negative) 04/22/16 17:48 Urine Blood Lg (Negative) 04/22/16 17:48 Urine Nitrite Neg (Negative) 04/22/16 17:48 Urine Bilirubin Neg (Negative) 04/22/16 17:48 Urine Urobilinogen 2.0 mg/dL (<2.0) 04/22/16 17:48 Ur Leukocyte Esterase Neg (Negative) 04/22/16 17:48 Urine WBC (Auto) 3.0 /HPF (0.0-6.0) 04/22/16 17:48 Urine RBC (Auto) 1.0 /HPF (0.0-6.0) 04/22/16 17:48 U Epithel Cells (Auto) 1.0 /HPF (0-13.0) 04/22/16 17:48 Urine Bacteria (Auto) 1+ /HPF (Negative) 04/22/16 17:48 Urine Mucus Few /HPF 04/22/16 17:48 Urine Osmolality 370 Mosm/kg 04/22/16 19:14 Urine Creatinine 46.6 mg/dL (0.1-20.0) H 04/24/16 08:04 Urine Sodium 95 mEq/L 04/24/16 08:04 Salicylates < 0.3 mg/dL (2.8-20.0) L 04/22/16 17:30 Urine Opiates Screen Presumptive negative 04/22/16 17:48 Urine Methadone Screen Presumptive negative 04/22/16 17:48 Acetaminophen < 15.0 ug/mL (10.0-30.0) 04/22/16 17:30 Ur Barbiturates Screen Presumptive negative 04/22/16 17:48 Ur Phencyclidine Scrn Presumptive negative 04/22/16 17:48 Ur Amphetamines Screen Presumptive negative 04/22/16 17:48 U Benzodiazepines Scrn Presumptive negative 04/22/16 17:48 Urine Cocaine Screen Presumptive negative 04/22/16 17:48 U Marijuana (THC) Screen Presumptive negative 04/22/16 17:48 Drugs of Abuse Note Disclamer 04/22/16 17:48 Plasma/Serum Alcohol < 0.01 gm% (0-0.07) 04/22/16 17:30
[2016-04-25] MEDS: TAMIFLU PO SCH ×2 (09:37→22:41)
--- NOTE | 2016-04-25 12:45 | Ultrasound Report ---
Renal sonogram: History: Renal failure. Findings: Right kidney measures 12.6 x 4.9 x 5.7 cm. Cortical thickness is 1.4 cm. Left kidney measures 2.9 x 4.5 x 4.2 cm. Cortical thickness 1.6 cm. No mass. No hydronephrosis. Impression: Essentially negative renal sonogram.
--- NOTE | 2016-04-25 15:11 | Cat Scan Report ---
FINAL REPORT EXAM: CT HEAD/BRAIN WO CON HISTORY: weakness COMPARISON: None available. TECHNIQUE: Axial images obtained skull base through vertex. FINDINGS: No acute intracranial hemorrhage, midline shift or pathologic extra axial fluid collection. Mild to moderate volume loss with compensatory dilatation of the ventricular system and chronic small vessel ischemic disease. Otherwise, green-white differentiation preserved. Calvarium grossly intact. Moderate mucosal thickening of the left ethmoid air cells and left maxillary sinus. Near-complete opacification left mastoid air cells and tympanic cavity. Visualized orbits are grossly unremarkable. IMPRESSION: No grossly acute intracranial abnormality. Mild to moderate volume loss and chronic small vessel ischemic disease. Near-complete opacification left mastoid air cells and tympanic cavity. Moderate mucosal thickening left ethmoid air cells and left maxillary sinus.
--- NOTE | 2016-04-25 15:34 | Progress Note ---
Assessment and Plan - Patient Problems (1) Rhabdomyolysis Current Visit: Yes Status: Acute Qualifiers: Rhabdomyolysis type: R Encounter type: E Plan to address problem: IVF, bicarbonate drip, monitor uop q shift, ck in am. (2) Hyponatremia Current Visit: Yes Status: Acute Plan to address problem: supportive care, IVF replacement. (3) Renal failure Current Visit: Yes Status: Acute Plan to address problem: monitor uop q shift,IVF replacement, supportive care. (4) Debility Current Visit: Yes Status: Acute Plan to address problem: PT consulted, Case management consulted for D/C planning/placement (5) DVT prophylaxis Current Visit: Yes Status: Acute History Interval history: Pt resting comfortable in bed, Pt denies pain. Pt care plan discussed, No reported nursing events. Hospitalist Physical - Constitutional Vitals: Temp Pulse Resp BP Pulse Ox 97.8 F 83 20 156/84 98 04/25/16 07:30 04/25/16 12:22 04/25/16 07:30 04/25/16 12:22 04/25/16 07:30 General appearance: Present: no acute distress - EENT Eyes: Present: PERRL, EOM intact ENT: hearing intact - Neck Neck: Present: supple - Respiratory Respiratory: bilateral: diminished - Cardiovascular Rhythm: regular Heart Sounds: Present: S1 & S2 - Extremities Extremities: no ischemia Peripheral Pulses: within normal limits - Abdominal General gastrointestinal: soft, non-tender, non-distended, no hepatomegaly, no splenomegaly - Integumentary Integumentary: Present: clear, dry - Psychiatric Psychiatric: appropriate mood/affect, cooperative - Neurologic Neurologic: CNII-XII intact Results - Labs CBC & Chem 7: 04/24/16 10:03 04/24/16 10:03 Labs: Laboratory Last Values WBC 8.3 K/mm3 (4.5-11.0) 04/24/16 10:03 RBC 3.81 M/mm3 (3.65-5.03) 04/24/16 10:03 Hgb 12.0 gm/dl (11.8-15.2) D 04/24/16 10:03 Hct 35.0 % (35.5-45.6) L D 04/24/16 10:03 MCV 92 fl (84-94) 04/24/16 10:03 MCH 32 pg (28-32) 04/24/16 10:03 MCHC 34 % (32-34) 04/24/16 10:03 RDW 12.8 % (13.2-15.2) L 04/24/16 10:03 Plt Count 111 K/mm3 (140-440) L 04/24/16 10:03 Lymph % (Auto) 7.8 % (13.4-35.0) L 04/24/16 10:03 [place] % (Auto) 9.2 % (0.0-7.3) H 04/24/16 10:03 Eos % (Auto) 0.2 % (0.0-4.3) 04/24/16 10:03 Baso % (Auto) 0.2 % (0.0-1.8) 04/24/16 10:03 Lymph # 0.6 K/mm3 (1.2-5.4) L 04/24/16 10:03 [place] # 0.8 K/mm3 (0.0-0.8) 04/24/16 10:03 Eos # 0.0 K/mm3 (0.0-0.4) 04/24/16 10:03 Baso # 0.0 K/mm3 (0.0-0.1) 04/24/16 10:03 Add Manual Diff Complete 04/23/16 04:27 Total Counted 100 04/23/16 04:27 Seg Neutrophils % 82.6 % (40.0-70.0) H 04/24/16 10:03 Seg Neuts % (Manual) 61.0 % (40.0-70.0) 04/23/16 04:27 Band Neutrophils % 29.0 % 04/23/16 04:27 Lymphocytes % (Manual) 7.0 % (13.4-35.0) L 04/23/16 04:27 Reactive Lymphs % (Man) 0 % 04/23/16 04:27 Monocytes % (Manual) 3.0 % (0.0-7.3) 04/23/16 04:27 Eosinophils % (Manual) 0 % (0.0-4.3) 04/23/16 04:27 Basophils % (Manual) 0 % (0.0-1.8) 04/23/16 04:27 Metamyelocytes % 0 % 04/23/16 04:27 Myelocytes % 0 % 04/23/16 04:27 Promyelocytes % 0 % 04/23/16 04:27 Blast Cells % 0 % 04/23/16 04:27 Nucleated RBC % Not Reportable 04/23/16 04:27 Seg Neutrophils # 6.9 K/mm3 (1.8-7.7) 04/24/16 10:03 Seg Neutrophils # Man 6.3 K/mm3 (1.8-7.7) 04/23/16 04:27 Band Neutrophils # 3.0 K/mm3 04/23/16 04:27 Lymphocytes # (Manual) 0.7 K/mm3 (1.2-5.4) L 04/23/16 04:27 Abs React Lymphs (Man) 0.0 K/mm3 04/23/16 04:27 Monocytes # (Manual) 0.3 K/mm3 (0.0-0.8) 04/23/16 04:27 Eosinophils # (Manual) 0.0 K/mm3 (0.0-0.4) 04/23/16 04:27 Basophils # (Manual) 0.0 K/mm3 (0.0-0.1) 04/23/16 04:27 Metamyelocytes # 0.0 K/mm3 04/23/16 04:27 Myelocytes # 0.0 K/mm3 04/23/16 04:27 Promyelocytes # 0.0 K/mm3 04/23/16 04:27 Blast Cells # 0.0 K/mm3 04/23/16 04:27 WBC Morphology Not Reportable 04/23/16 04:27 Hypersegmented Neuts Not Reportable 04/23/16 04:27 Hyposegmented Neuts Not Reportable 04/23/16 04:27 Hypogranular Neuts Not Reportable 04/23/16 04:27 Smudge Cells Not Reportable 04/23/16 04:27 Toxic Granulation Not Reportable 04/23/16 04:27 Toxic Vacuolation Not Reportable 04/23/16 04:27 Dohle Bodies Not Reportable 04/23/16 04:27 Pelger-Huet Anomaly Not Reportable 04/23/16 04:27 Mendy Rods Not Reportable 04/23/16 04:27 Platelet Estimate Consistent w auto 04/23/16 04:27 Clumped Platelets Not Reportable 04/23/16 04:27 Plt Clumps, EDTA Not Reportable 04/23/16 04:27 Large Platelets Rare 04/23/16 04:27 Giant Platelets Not Reportable 04/23/16 04:27 Platelet Satelliting Not Reportable 04/23/16 04:27 Plt Morphology Comment Not Reportable 04/23/16 04:27 RBC Morphology Not Reportable 04/23/16 04:27 Dimorphic RBCs Not Reportable 04/23/16 04:27 Polychromasia Few 04/23/16 04:27 Hypochromasia Not Reportable 04/23/16 04:27 Poikilocytosis Not Reportable 04/23/16 04:27 Anisocytosis 1+ 04/23/16 04:27 Microcytosis Not Reportable 04/23/16 04:27 Macrocytosis Not Reportable 04/23/16 04:27 Spherocytes Not Reportable 04/23/16 04:27 Pappenheimer Bodies Not Reportable 04/23/16 04:27 Sickle Cells Not Reportable 04/23/16 04:27 Target Cells Not Reportable 04/23/16 04:27 Tear Drop Cells Not Reportable 04/23/16 04:27 Ovalocytes Not Reportable 04/23/16 04:27 Helmet Cells Not Reportable 04/23/16 04:27 Altman-Pickrell Bodies Not Reportable 04/23/16 04:27 [place] Rings Not Reportable 04/23/16 04:27 Joanne Cells Few 04/23/16 04:27 Bite Cells Not Reportable 04/23/16 04:27 Crenated Cell Not Reportable 04/23/16 04:27 Elliptocytes Not Reportable 04/23/16 04:27 Acanthocytes (Spur) Not Reportable 04/23/16 04:27 Rouleaux Not Reportable 04/23/16 04:27 Hemoglobin C Crystals Not Reportable 04/23/16 04:27 Schistocytes Not Reportable 04/23/16 04:27 Malaria parasites Not Reportable 04/23/16 04:27 Jeevan Bodies Not Reportable 04/23/16 04:27 Hem Pathologist Commnt No 04/23/16 04:27 Sodium 129 mmol/L (137-145) L D 04/24/16 10:03 Potassium 3.7 mmol/L (3.6-5.0) 04/24/16 10:03 Chloride 90.8 mmol/L (98-107) L 04/24/16 10:03 Carbon Dioxide 23 mmol/L (22-30) 04/24/16 10:03 Anion Gap 19 mmol/L 04/24/16 10:03 BUN 38 mg/dL (9-20) H 04/24/16 10:03 Creatinine 3.4 mg/dL (0.8-1.5) H 04/24/16 10:03 Estimated GFR 22 ml/min 04/24/16 10:03 BUN/Creatinine Ratio 11.17 % 04/24/16 10:03 Glucose 88 mg/dL (75-100) 04/24/16 10:03 POC Glucose 126 (70-105) H 04/25/16 11:47 Lactic Acid 2.3 mmol/L (0.7-2.0) H* 04/22/16 20:58 Uric Acid 5.8 mg/dL (3.5-7.6) 04/23/16 19:48 Calcium 7.3 mg/dL (8.4-10.2) L 04/24/16 10:03 Magnesium 2.1 mg/dL (1.7-2.3) 04/22/16 17:30 Total Bilirubin 0.6 mg/dL (0.1-1.2) 04/24/16 10:03 AST 540 units/L (5-40) H 04/24/16 10:03 ALT 142 units/L (7-56) H 04/24/16 10:03 Alkaline Phosphatase 46 units/L (35-129) 04/24/16 10:03 Total Creatine Kinase 13279 units/L (55-170) H 04/25/16 11:44 CK-MB (CK-2) 99.9 ng/mL (0.0-4.0) H 04/23/16 00:09 CK-MB (CK-2) Rel Index 0.3 (0-4) 04/23/16 00:09 Total Protein 5.9 g/dL (6.3-8.2) L 04/24/16 10:03 Albumin 2.3 g/dL (3.9-5) L 04/24/16 10:03 Albumin/Globulin Ratio 0.6 % 04/24/16 10:03 TSH 0.855 mlU/mL (0.270-4.200) 04/23/16 19:47 Urine Color Naima (Yellow) 04/22/16 17:48 Urine Turbidity Cloudy (Clear) 04/22/16 17:48 Urine pH 5.0 (5.0-7.0) 04/22/16 17:48 Ur Specific [place] 1.014 (1.003-1.030) 04/22/16 17:48 Urine Protein 100 mg/dl mg/dL (Negative) 04/22/16 17:48 Urine Glucose (UA) Neg mg/dL (Negative) 04/22/16 17:48 Urine Ketones Tr mg/dL (Negative) 04/22/16 17:48 Urine Blood Lg (Negative) 04/22/16 17:48 Urine Nitrite Neg (Negative) 04/22/16 17:48 Urine Bilirubin Neg (Negative) 04/22/16 17:48 Urine Urobilinogen 2.0 mg/dL (<2.0) 04/22/16 17:48 Ur Leukocyte Esterase Neg (Negative) 04/22/16 17:48 Urine WBC (Auto) 3.0 /HPF (0.0-6.0) 04/22/16 17:48 Urine RBC (Auto) 1.0 /HPF (0.0-6.0) 04/22/16 17:48 U Epithel Cells (Auto) 1.0 /HPF (0-13.0) 04/22/16 17:48 Urine Bacteria (Auto) 1+ /HPF (Negative) 04/22/16 17:48 Urine Mucus Few /HPF 04/22/16 17:48 Urine Osmolality 370 Mosm/kg 04/22/16 19:14 Urine Creatinine 46.6 mg/dL (0.1-20.0) H 04/24/16 08:04 Urine Sodium 95 mEq/L 04/24/16 08:04 Salicylates < 0.3 mg/dL (2.8-20.0) L 04/22/16 17:30 Urine Opiates Screen Presumptive negative 04/22/16 17:48 Urine Methadone Screen Presumptive negative 04/22/16 17:48 Acetaminophen < 15.0 ug/mL (10.0-30.0) 04/22/16 17:30 Ur Barbiturates Screen Presumptive negative 04/22/16 17:48 Ur Phencyclidine Scrn Presumptive negative 04/22/16 17:48 Ur Amphetamines Screen Presumptive negative 04/22/16 17:48 U Benzodiazepines Scrn Presumptive negative 04/22/16 17:48 Urine Cocaine Screen Presumptive negative 04/22/16 17:48 U Marijuana (THC) Screen Presumptive negative 04/22/16 17:48 Drugs of Abuse Note Disclamer 04/22/16 17:48 Plasma/Serum Alcohol < 0.01 gm% (0-0.07) 04/22/16 17:30
[2016-04-25] MEDS: SODIUM BICARBONATE 100 MEQ in STERILE WATER 1,000 ML IV SCH (19:14)
[2016-04-26] MEDS: APRESOLINE IV SCH ×4 (00:44→18:35)
[2016-04-26 02:36] LABS: Hematocrit 36.4 % (35.5-45.6); Hemoglobin 12.3 gm/dl (11.8-15.2); Mean Corpuscular HGB Conc 34 % (32-34); Mean Corpuscular Hemoglobin 31 pg (28-32); Mean Corpuscular Volume 91 fl (84-94); Platelet Count 154 K/mm3 (140-440); Red Blood Count 3.99 M/mm3 (3.65-5.03); Red Cell Distribution Width 12.6 % (13.2-15.2); White Blood Count 4.4 K/mm3 (4.5-11.0)
[2016-04-26 03:05] LABS: Albumin 2.6 g/dL (3.9-5); Albumin/Globulin Ratio 0.8 %; BUN/Creatinine Ratio 12.85; Bilirubin,Total 0.9 mg/dL (0.1-1.2); Calcium 7.7 mg/dL (8.4-10.2); Chloride 85.8 mmol/L (98-107); Potassium 3.2 mmol/L (3.6-5.0)
[2016-04-26 03:36] LABS: Basophils % (Manual) 0 % (0.0-1.8); Blastocytes % (Manual) 0 %; Eosinophils % (Manual) 0 % (0.0-4.3)
[2016-04-26 03:37] LABS: Anisocytosis 1+; Burr Cells Rare; Diff Status Complete; Elliptocytes Rare; Helmet Cells Few; Ovalocytes Few
[2016-04-26] MEDS: SODIUM BICARBONATE 100 MEQ in STERILE WATER 1,000 ML IV SCH ×2 (05:50→18:36)
--- NOTE | 2016-04-26 09:12 | Progress Note ---
Assessment and Plan - Patient Problems (1) Rhabdomyolysis Current Visit: Yes Status: Acute Qualifiers: Rhabdomyolysis type: R Encounter type: E Plan to address problem: CK levels slowly coming down (2) MIRANDA (acute kidney injury) Current Visit: Yes Status: Acute Plan to address problem: Scr down to 2.1- non oliguric. pt is on bicarb drip (3) Hypokalemia Current Visit: Yes Status: Acute Plan to address problem: supplement K. If CK levels improve- may stop bicarb drip (4) Hyponatremia Current Visit: Yes Status: Acute Plan to address problem: Na-129- monitor (5) Transaminitis Current Visit: Yes Status: Acute Plan to address problem: H/O Alcohol abuse-drinks beer per girl friend (6) Hypocalcemia Current Visit: Yes Status: Acute Plan to address problem: hypocalcemia with hypoalbuminemia- check Mg.P, ionised Calcium levels (7) Hypoalbuminemia Current Visit: Yes Status: Acute Subjective Date of service: 04/26/16 Interval history: pt is alert, denies CP or SOB Objective - Vital Signs Vital signs: Vital Signs - 12hr 04/26/16 04/26/16 04/26/16 00:44 05:49 05:52 Temperature 98.2 F Pulse Rate 101 H 104 H Pulse Rate [ 104 H Right Radial] Respiratory 20 Rate Blood Pressure 142/74 138/70 Blood Pressure 138/70 [Right Radial Artery] O2 Sat by Pulse 98 Oximetry - General Appearance General appearance: well-developed EENT: mucous membranes moist Neck: no JVD Respiratory: Present: Clear to Ascultation Cardiology: regular Gastrointestinal: normoactive bowel sounds Neurologic: alert and oriented x3 Musculoskeletal: other (no edema) Psychiatric: mood/affect appropriate, cooperative - Lab 04/26/16 02:25 04/26/16 02:25 Most recent lab results Calcium 7.7 mg/dL (8.4-10.2) L 04/26/16 02:25 Magnesium 2.1 mg/dL (1.7-2.3) 04/22/16 17:30 Urine Creatinine 46.6 mg/dL (0.1-20.0) H 04/24/16 08:04 Urine Sodium 95 mEq/L 04/24/16 08:04
--- NOTE | 2016-04-26 09:37 | Query- Renal Failure ---
Sera Edge____Juan Date: 04/26/16 Steel Fabricator/CDS:____Ricardo Dickey Phone#:____[phone] Exercise your independent professional judgment when responding to query. Questions asked do not imply a particular answer is desired or expected. We greatly appreciate your clarification on this issue. Clinical Documentation States: 65 year old Male was admitted on 04/22/16. The progress note (04/25/16) states " Renal failure acute, IVF placement " Clinical Findings Show: 04/24/16 04/26/16 Creatinine: 3.4 2.1 Please clarify if you mean: Acute Renal Failure with or due to: [ ] Tubular Necrosis [ ] Medullary Necrosis [x ] Vasomotor Nephropathy [ ] Shock Kidney [ ] Tubular Nephrosis [ ] Renal Tubular Stasis [ ] Cortical Necrosis [ ] Acute Renal Failure (unspecified) [ ] Lower Tubular Nephrosis [ ] Other: [ ] Not Applicable [ ] Clinically undeterminable Present on Admission: [ x] Yes (Y) [ ] Clinically undeterminable (W) [ ] No (N) Please also document response in your Progress Notes and/or Discharge Summary and indicate if the condition was present on admission. MTDD
--- NOTE | 2016-04-26 09:37 | Operative Report ---
TIME OF SERVICE: 9:45 in the morning. The patient was seen today for followup on multiple renal related issues. The patient denies any complaints of chest pain, pressure, shortness of breath, and had cough, which is improving. Does not complain of any specific myalgia like symptom, but does complain of right leg pain. No swelling. Continue to be tolerating fluid Vitals, labs, intake and output medications were reviewed. PHYSICAL EXAMINATION: HEENT: Normocephalic, atraumatic skull. Extraocular movements intact. NECK: Supple. CHEST: Essentially clear to auscultation anteriorly and posteriorly. New basilar crackles. HEART: Regular rate, S1, S2 heard. No S3, S4. ABDOMEN: Soft, nontender. EXTREMITIES: No edema, no tenderness in the right leg. No discoloration, no swelling. ASSESSMENT AND PLAN: 1. Renal failure in a patient who was a very poor historian, does not have however any known history of chronic kidney disease. Per the patient, he has been followed by [place]. Currently admitted with rhabdomyolysis and renal failure. Creatinine continues to improve. Monitor and maintain hydration. 2. Rhabdomyolysis, etiology, monitor serial CPK, maintain hydration, no indication for renal replacement therapy. If the rhabdomyolysis does not recall well, the patient may need a muscle biopsy. 3. Overall renal prognosis remains guarded at this time. The patient's medical record may need to be obtained from [place] physician if creatinine failed to improve. JOB# [id number] [place] [facility]
[2016-04-26] MEDS ORDERED: TAMIFLU PO SCH (10:00)
[2016-04-26] MEDS: K-DUR PO ONE (12:43)
[2016-04-26] MEDS ORDERED: K-DUR PO ONE (13:00)
--- NOTE | 2016-04-26 17:06 | Discharge Summary ---
Providers - Providers Date of Admission: 04/22/16 19:45 Attending physician: JUAN CHO 04/23/16 11:07 Physical Therapy Evaluation and Treat [CONS] Routine Comment: Reason For Exam: debility Primary care physician: CERTIFIED PUBLIC ACCOUNTANT Hospitalization Condition: Good Disposition: STILL A PATIENT - Discharge Diagnoses (1) Rhabdomyolysis Status: Acute Qualifiers: Rhabdomyolysis type: R Encounter type: E (2) Hyponatremia Status: Acute (3) Renal failure Status: Acute (4) Debility Status: Acute (5) DVT prophylaxis Status: Acute Core Measure Documentation - Palliative Care Palliative Care/ Comfort Measures: Not Applicable Exam - Constitutional Vitals: Temp Pulse Resp BP Pulse Ox 97.9 F 110 H 20 159/84 98 04/26/16 07:50 04/26/16 12:56 04/26/16 07:50 04/26/16 12:56 04/26/16 07:50 Plan Follow up with: WILLARD BARDALES MD [Primary Care Provider] - 3-5 Days
--- NOTE | 2016-04-26 19:43 | Progress Note ---
Assessment and Plan - Patient Problems (1) Rhabdomyolysis Current Visit: Yes Status: Acute Qualifiers: Rhabdomyolysis type: R Encounter type: E Plan to address problem: IVF, bicarbonate drip, monitor uop q shift, ck in am. (2) Hyponatremia Current Visit: Yes Status: Acute Plan to address problem: supportive care, IVF replacement. (3) Renal failure Current Visit: Yes Status: Acute Plan to address problem: monitor uop q shift,IVF replacement, supportive care. (4) Debility Current Visit: Yes Status: Acute Plan to address problem: PT consulted, Case management consulted for D/C planning/placement (5) DVT prophylaxis Current Visit: Yes Status: Acute History Interval history: Pt resting comfortable in bed, Pt denies pain. Pt care plan discussed, No reported nursing events. Case management consulted for D/C Planning. Pt discharged to SNF today. Medications reconciled. Hospitalist Physical - Constitutional Vitals: Temp Pulse Resp BP Pulse Ox 97.4 F L 107 H 18 150/84 98 04/26/16 17:55 04/26/16 18:35 04/26/16 17:55 04/26/16 18:35 04/26/16 07:50 General appearance: Present: no acute distress - EENT Eyes: Present: PERRL, EOM intact ENT: hearing intact - Neck Neck: Present: supple - Respiratory Respiratory: bilateral: diminished - Cardiovascular Rhythm: regular Heart Sounds: Present: S1 & S2 - Extremities Extremities: no ischemia Peripheral Pulses: within normal limits - Abdominal General gastrointestinal: soft, non-tender, non-distended - Integumentary Integumentary: Present: clear, dry - Psychiatric Psychiatric: appropriate mood/affect, cooperative - Neurologic Neurologic: CNII-XII intact Results - Labs CBC & Chem 7: 04/26/16 02:25 04/26/16 02:25 Labs: Laboratory Last Values WBC 4.4 K/mm3 (4.5-11.0) L 04/26/16 02:25 RBC 3.99 M/mm3 (3.65-5.03) 04/26/16 02:25 Hgb 12.3 gm/dl (11.8-15.2) 04/26/16 02:25 Hct 36.4 % (35.5-45.6) 04/26/16 02:25 MCV 91 fl (84-94) 04/26/16 02:25 MCH 31 pg (28-32) 04/26/16 02:25 MCHC 34 % (32-34) 04/26/16 02:25 RDW 12.6 % (13.2-15.2) L 04/26/16 02:25 Plt Count 154 K/mm3 (140-440) 04/26/16 02:25 Lymph % (Auto) 7.8 % (13.4-35.0) L 04/24/16 10:03 [place] % (Auto) Transportation Design Engineer 04/26/16 02:25 Eos % (Auto) 0.2 % (0.0-4.3) 04/24/16 10:03 Baso % (Auto) 0.2 % (0.0-1.8) 04/24/16 10:03 Lymph # 0.6 K/mm3 (1.2-5.4) L 04/24/16 10:03 [place] # 0.8 K/mm3 (0.0-0.8) 04/24/16 10:03 Eos # 0.0 K/mm3 (0.0-0.4) 04/24/16 10:03 Baso # 0.0 K/mm3 (0.0-0.1) 04/24/16 10:03 Add Manual Diff Complete 04/26/16 02:25 Total Counted 100 04/26/16 02:25 Seg Neutrophils % 82.6 % (40.0-70.0) H 04/24/16 10:03 Seg Neuts % (Manual) 80.0 % (40.0-70.0) H 04/26/16 02:25 Band Neutrophils % 0 % 04/26/16 02:25 Lymphocytes % (Manual) 10.0 % (13.4-35.0) L 04/26/16 02:25 Reactive Lymphs % (Man) 0 % 04/26/16 02:25 Monocytes % (Manual) 8.0 % (0.0-7.3) H 04/26/16 02:25 Eosinophils % (Manual) 0 % (0.0-4.3) 04/26/16 02:25 Basophils % (Manual) 0 % (0.0-1.8) 04/26/16 02:25 Metamyelocytes % 2.0 % 04/26/16 02:25 Myelocytes % 0 % 04/26/16 02:25 Promyelocytes % 0 % 04/26/16 02:25 Blast Cells % 0 % 04/26/16 02:25 Nucleated RBC % Not Reportable 04/26/16 02:25 Seg Neutrophils # 6.9 K/mm3 (1.8-7.7) 04/24/16 10:03 Seg Neutrophils # Man 3.5 K/mm3 (1.8-7.7) 04/26/16 02:25 Band Neutrophils # 0.0 K/mm3 04/26/16 02:25 Lymphocytes # (Manual) 0.4 K/mm3 (1.2-5.4) L 04/26/16 02:25 Abs React Lymphs (Man) 0.0 K/mm3 04/26/16 02:25 Monocytes # (Manual) 0.4 K/mm3 (0.0-0.8) 04/26/16 02:25 Eosinophils # (Manual) 0.0 K/mm3 (0.0-0.4) 04/26/16 02:25 Basophils # (Manual) 0.0 K/mm3 (0.0-0.1) 04/26/16 02:25 Metamyelocytes # 0.1 K/mm3 04/26/16 02:25 Myelocytes # 0.0 K/mm3 04/26/16 02:25 Promyelocytes # 0.0 K/mm3 04/26/16 02:25 Blast Cells # 0.0 K/mm3 04/26/16 02:25 WBC Morphology Not Reportable 04/26/16 02:25 Hypersegmented Neuts Not Reportable 04/26/16 02:25 Hyposegmented Neuts Not Reportable 04/26/16 02:25 Hypogranular Neuts Not Reportable 04/26/16 02:25 Smudge Cells Not Reportable 04/26/16 02:25 Toxic Granulation Not Reportable 04/26/16 02:25 Toxic Vacuolation Not Reportable 04/26/16 02:25 Dohle Bodies Not Reportable 04/26/16 02:25 Pelger-Huet Anomaly Not Reportable 04/26/16 02:25 Mendy Rods Not Reportable 04/26/16 02:25 Platelet Estimate Appears normal 04/26/16 02:25 Clumped Platelets Not Reportable 04/26/16 02:25 Plt Clumps, EDTA Not Reportable 04/26/16 02:25 Large Platelets Not Reportable 04/26/16 02:25 Giant Platelets Not Reportable 04/26/16 02:25 Platelet Satelliting Not Reportable 04/26/16 02:25 Plt Morphology Comment Not Reportable 04/26/16 02:25 RBC Morphology Not Reportable 04/26/16 02:25 Dimorphic RBCs Not Reportable 04/26/16 02:25 Polychromasia Not Reportable 04/26/16 02:25 Hypochromasia Not Reportable 04/26/16 02:25 Poikilocytosis Not Reportable 04/26/16 02:25 Anisocytosis 1+ 04/26/16 02:25 Microcytosis Not Reportable 04/26/16 02:25 Macrocytosis Not Reportable 04/26/16 02:25 Spherocytes Not Reportable 04/26/16 02:25 Pappenheimer Bodies Not Reportable 04/26/16 02:25 Sickle Cells Not Reportable 04/26/16 02:25 Target Cells Not Reportable 04/26/16 02:25 Tear Drop Cells Not Reportable 04/26/16 02:25 Ovalocytes Few 04/26/16 02:25 Helmet Cells Few 04/26/16 02:25 Altman-Britt Bodies Not Reportable 04/26/16 02:25 [place] Rings Not Reportable 04/26/16 02:25 Joanne Cells Rare 04/26/16 02:25 Bite Cells Not Reportable 04/26/16 02:25 Crenated Cell Not Reportable 04/26/16 02:25 Elliptocytes Rare 04/26/16 02:25 Acanthocytes (Spur) Not Reportable 04/26/16 02:25 Rouleaux Not Reportable 04/26/16 02:25 Hemoglobin C Crystals Not Reportable 04/26/16 02:25 Schistocytes Not Reportable 04/26/16 02:25 Malaria parasites Not Reportable 04/26/16 02:25 Jeevan Bodies Not Reportable 04/26/16 02:25 Hem Pathologist Commnt No 04/26/16 02:25 Sodium 129 mmol/L (137-145) L 04/26/16 02:25 Potassium 3.2 mmol/L (3.6-5.0) L 04/26/16 02:25 Chloride 85.8 mmol/L (98-107) L 04/26/16 02:25 Carbon Dioxide 30 mmol/L (22-30) D 04/26/16 02:25 Anion Gap 16 mmol/L 04/26/16 02:25 BUN 27 mg/dL (9-20) H 04/26/16 02:25 Creatinine 2.1 mg/dL (0.8-1.5) H 04/26/16 02:25 Estimated GFR 38 ml/min 04/26/16 02:25 BUN/Creatinine Ratio 12.85 % 04/26/16 02:25 Glucose 105 mg/dL (75-100) H 04/26/16 02:25 POC Glucose 110 (70-105) H 04/26/16 17:19 Lactic Acid 2.3 mmol/L (0.7-2.0) H* 04/22/16 20:58 Uric Acid 5.8 mg/dL (3.5-7.6) 04/23/16 19:48 Calcium 7.7 mg/dL (8.4-10.2) L 04/26/16 02:25 Magnesium 2.1 mg/dL (1.7-2.3) 04/22/16 17:30 Total Bilirubin 0.9 mg/dL (0.1-1.2) 04/26/16 02:25 AST 427 units/L (5-40) H 04/26/16 02:25 ALT 124 units/L (7-56) H 04/26/16 02:25 Alkaline Phosphatase 58 units/L (35-129) 04/26/16 02:25 Total Creatine Kinase 8903 units/L (55-170) H 04/26/16 07:38 CK-MB (CK-2) 99.9 ng/mL (0.0-4.0) H 04/23/16 00:09 CK-MB (CK-2) Rel Index 0.3 (0-4) 04/23/16 00:09 Total Protein 6.0 g/dL (6.3-8.2) L 04/26/16 02:25 Albumin 2.6 g/dL (3.9-5) L 04/26/16 02:25 Albumin/Globulin Ratio 0.8 % 04/26/16 02:25 TSH 0.855 mlU/mL (0.270-4.200) 04/23/16 19:47 Urine Color Naima (Yellow) 04/22/16 17:48 Urine Turbidity Cloudy (Clear) 04/22/16 17:48 Urine pH 5.0 (5.0-7.0) 04/22/16 17:48 Ur Specific [place] 1.014 (1.003-1.030) 04/22/16 17:48 Urine Protein 100 mg/dl mg/dL (Negative) 04/22/16 17:48 Urine Glucose (UA) Neg mg/dL (Negative) 04/22/16 17:48 Urine Ketones Tr mg/dL (Negative) 04/22/16 17:48 Urine Blood Lg (Negative) 04/22/16 17:48 Urine Nitrite Neg (Negative) 04/22/16 17:48 Urine Bilirubin Neg (Negative) 04/22/16 17:48 Urine Urobilinogen 2.0 mg/dL (<2.0) 04/22/16 17:48 Ur Leukocyte Esterase Neg (Negative) 04/22/16 17:48 Urine WBC (Auto) 3.0 /HPF (0.0-6.0) 04/22/16 17:48 Urine RBC (Auto) 1.0 /HPF (0.0-6.0) 04/22/16 17:48 U Epithel Cells (Auto) 1.0 /HPF (0-13.0) 04/22/16 17:48 Urine Bacteria (Auto) 1+ /HPF (Negative) 04/22/16 17:48 Urine Mucus Few /HPF 04/22/16 17:48 Urine Osmolality 370 Mosm/kg 04/22/16 19:14 Urine Creatinine 46.6 mg/dL (0.1-20.0) H 04/24/16 08:04 Urine Sodium 95 mEq/L 04/24/16 08:04 Salicylates < 0.3 mg/dL (2.8-20.0) L 04/22/16 17:30 Urine Opiates Screen Presumptive negative 04/22/16 17:48 Urine Methadone Screen Presumptive negative 04/22/16 17:48 Acetaminophen < 15.0 ug/mL (10.0-30.0) 04/22/16 17:30 Ur Barbiturates Screen Presumptive negative 04/22/16 17:48 Ur Phencyclidine Scrn Presumptive negative 04/22/16 17:48 Ur Amphetamines Screen Presumptive negative 04/22/16 17:48 U Benzodiazepines Scrn Presumptive negative 04/22/16 17:48 Urine Cocaine Screen Presumptive negative 04/22/16 17:48 U Marijuana (THC) Screen Presumptive negative 04/22/16 17:48 Drugs of Abuse Note Disclamer 04/22/16 17:48 Plasma/Serum Alcohol < 0.01 gm% (0-0.07) 04/22/16 17:30
[2016-04-27] MEDS: APRESOLINE IV SCH ×3 (00:15→14:03)
[2016-04-27] MEDS: SODIUM BICARBONATE 100 MEQ in STERILE WATER 1,000 ML IV SCH (05:36)
[2016-04-27 06:56] LABS: Albumin 2.6 g/dL (3.9-5); Albumin/Globulin Ratio 0.8 %; BUN/Creatinine Ratio 12.22; Bilirubin,Total 0.8 mg/dL (0.1-1.2); Calcium 7.9 mg/dL (8.4-10.2); Chloride 85.8 mmol/L (98-107); Potassium 3.1 mmol/L (3.6-5.0)
[2016-04-27 07:23] LABS: Magnesium 1.6 mg/dL (1.7-2.3); Phosphorous 2.6 mg/dL (2.5-4.5)
--- NOTE | 2016-04-27 07:48 | Discharge Summary ---
Providers - Providers Date of Admission: 04/22/16 19:45 Attending physician: CARLY GAN MD 04/23/16 11:07 Physical Therapy Evaluation and Treat [CONS] Routine Comment: Reason For Exam: debility Primary care physician: MANAGER CONFIGURATION Hospitalization Condition: Good Hospital course: 65 YO Male admitted for Rhabdomyolysis, Acute Renal Failure, Debility. Nephrology team consulted. Pt found to have debility and unable to conduct ADL' s independently. PT consulted. Case management consulted for D/C planning. Pt treated with supportive care. . Pt convalesced well during hospital course. Pt symptoms improved with therapy and supplemental oxygen. Pt medically optimized. Pt seen and evaluated prior to discharge but no significant new physical exam findings since admission. Pt discharged to SNF. Pt instructed to f/u pcp 1wk, Nephrology 1 wk with BMP. Pt to have outpatient f/u as per nephrology for CKD. 35 minutes dedicated to patient discharge and education. Pt counseled regarding increased protein intake. Pt to have Podiatry F/U as outpatient. Disposition: DC/[place] SNF W [facility] - Discharge Diagnoses (1) Rhabdomyolysis Status: Acute Qualifiers: Rhabdomyolysis type: R Encounter type: E (2) Hyponatremia Status: Acute (3) Renal failure Status: Acute (4) Debility Status: Acute (5) DVT prophylaxis Status: Acute Core Measure Documentation - Palliative Care Palliative Care/ Comfort Measures: Not Applicable - Core Measures Any of the following diagnoses?: none Exam - Constitutional Vitals: Temp Pulse Resp BP Pulse Ox 98.1 F 104 H 20 128/95 97 04/27/16 04:10 04/27/16 04:10 04/27/16 04:10 04/27/16 04:10 04/27/16 04:10 General appearance: Present: no acute distress, well-nourished - EENT Eyes: Present: PERRL ENT: hearing intact, clear oral mucosa - Neck Neck: Present: supple, normal ROM - Respiratory Respiratory effort: normal Respiratory: bilateral: CTA - Cardiovascular Heart Sounds: Present: S1 & S2. Absent: rub, click - Extremities Extremities: pulses symmetrical, No edema Peripheral Pulses: within normal limits - Abdominal General gastrointestinal: Present: soft, non-tender, non-distended, normal bowel sounds Male genitourinary: Present: normal - Integumentary Integumentary: Present: clear, warm, dry - Musculoskeletal Musculoskeletal: strength equal bilaterally, generalized weakness - Psychiatric Psychiatric: appropriate mood/affect, intact judgment & insight - Neurologic Neurologic: CNII-XII intact, moves all extremities Plan Activity: advance as tolerated Diet: renal Follow up with: PRIMARY CARE, [Primary Care Provider] - 3-5 Days
[2016-04-27] MEDS ORDERED: APRESOLINE IV PRN (09:14)
--- NOTE | 2016-04-27 09:22 | Progress Note ---
Assessment and Plan - Patient Problems (1) Rhabdomyolysis Status: Acute Qualifiers: Rhabdomyolysis type: R Encounter type: E (2) MIRANDA (acute kidney injury) Status: Acute (3) Hypokalemia Status: Acute (4) Hyponatremia Status: Acute (5) Transaminitis Status: Acute (6) Hypocalcemia Status: Acute (7) Hypoalbuminemia Status: Acute Subjective Date of service: 04/27/16 Interval history: not seen. pt was discharged Objective - Vital Signs Vital signs: Vital Signs - 12hr 04/27/16 04/27/16 04/27/16 00:00 00:15 04:10 Temperature 97.9 F 98.1 F Pulse Rate 86 Pulse Rate [ 104 H Apical] Pulse Rate [ 92 H Right Dorsalis Pedis] Respiratory 18 20 Rate Blood Pressure 164/91 128/95 [Right Radial Artery] O2 Sat by Pulse 100 97 Oximetry 04/27/16 08:00 Temperature 98.2 F Pulse Rate Pulse Rate [ 94 H Apical] Pulse Rate [ Right Dorsalis Pedis] Respiratory 20 Rate Blood Pressure 191/101 [Right Radial Artery] O2 Sat by Pulse 98 Oximetry - Lab 04/26/16 02:25 04/27/16 04:43 Most recent lab results Calcium 7.9 mg/dL (8.4-10.2) L 04/27/16 04:43 Phosphorus 2.6 mg/dL (2.5-4.5) 04/27/16 04:43 Magnesium 1.6 mg/dL (1.7-2.3) L 04/27/16 04:43 Urine Creatinine 46.6 mg/dL (0.1-20.0) H 04/24/16 08:04 Urine Sodium 95 mEq/L 04/24/16 08:04
[2016-04-27] MEDS ORDERED: K-DUR PO STA (09:23)
[2016-04-27] MEDS: K-DUR PO ONE (10:18)
--- NOTE | 2016-04-27 11:07 | Discharge Summary ---
Providers - Providers Date of Admission: 04/22/16 19:45 Date of discharge: 04/27/16 Attending physician: CARLY GAN MD 04/23/16 11:07 Physical Therapy Evaluation and Treat [CONS] Routine Comment: Reason For Exam: debility Primary care physician: WILLARD BARDALES MD Hospitalization Reason for admission: Please refer the D/C summary done by Dr Martinez Condition: Good Hospital course: Please refer the D/C summary done by Dr Martinez, This is opnly for medication reconciliation purpose only. Disposition: DC/TX SNF W [facility] Time spent for discharge: 10 minutes Core Measure Documentation - Palliative Care Palliative Care/ Comfort Measures: Not Applicable - Core Measures Any of the following diagnoses?: none Exam - Constitutional Vitals: Temp Pulse Resp BP Pulse Ox 98.2 F 94 H 20 191/101 98 04/27/16 08:00 04/27/16 09:41 04/27/16 08:00 04/27/16 09:41 04/27/16 08:00 Plan Follow up with: WILLARD BARDALES MD [Primary Care Provider] - 3-5 Days Prescriptions: traMADol 50 mg PO Q6H PRN #30 PRN Reason: Pain
[2016-04-27] MEDS ORDERED: K-DUR PO ONE (13:00)
[2016-04-27 14:13] VITALS: BP 141/78
[2016-04-28 20:10] LABS: Myeloperoxidase Antibody <1.0 AI (<1.0)
== END 2016-04-27 15:00 | DRG 871 ==
LOC: ED 16:45 → 4A 19:45
PROVIDERS: ADMIT Internal Medicine; ATTEND Internal Medicine
DX: A41.9 Sepsis, unspecified organism (principal); N17.0 Acute kidney failure with tubular necrosis; M62.82 Rhabdomyolysis; E87.1 Hypo-osmolality and hyponatremia; I25.2 Old myocardial infarction; G89.29 Other chronic pain; F17.210 Nicotine dependence, cigarettes, uncomplicated; B34.9 Viral infection, unspecified; N18.9 Chronic kidney disease, unspecified; I12.9 Hypertensive chronic kidney disease with stage 1 through stage 4 chronic kidney disease, or unspecified chronic kidney disease; E11.22 Type 2 diabetes mellitus with diabetic chronic kidney disease; E87.6 Hypokalemia; R74.0 Nonspecific elevation of levels of transaminase and lactic acid dehydrogenase [LDH]; E83.51 Hypocalcemia; E88.09 Other disorders of plasma-protein metabolism, not elsewhere classified
CPT/HCPCS: 36415; 70450; 71010; 76770; 80053; 80307; 80320; 81001; 82140; 82330; 82550; 82553; 82570; 82962; 83735; 83935; 84100; 84300; 84443; 84550; 85007; 85025; 86021; 86038; 86160; 86334; 87040; 87086; 87400; 93005; 93010; 96361; 96365; 99406; G0480; G8978-GP; G8979-GP; J0360; J0696; J7030

== ENCOUNTER 2016-09-25 19:51 | Emergency (ER) | payer MEDICARE ==
--- NOTE | 2016-09-25 20:48 | Cat Scan Report ---
FINAL REPORT PROCEDURE: CT HEAD/BRAIN WO CON TECHNIQUE: Computerized tomography of the head was performed without contrast material. HISTORY: fall, pain, slurred speech COMPARISON: 04/25/2016 FINDINGS: There are diffuse involutional changes, with prominence of the ventricles and the sulci. The intracranial arteries are symmetric in density. There is no evidence of acute hemorrhage, mass, hydrocephalus, or acute territorial infarction. Calvarium is intact. There is minimal left maxillary sinus mucosal thickening. Small amount of fluid is seen in the left mastoid. There is right posterior scalp soft tissue swelling. IMPRESSION: No CT evidence of acute intracranial abnormality. Mild right posterior scalp soft tissue swelling
--- NOTE | 2016-09-25 20:57 | Cat Scan Report ---
FINAL REPORT PROCEDURE: CT CERVICAL SPINE WO CON TECHNIQUE: Computerized tomography of the cervical spine was performed from the skull base to T1 without contrast material. HISTORY: fall, pain, slurred speech COMPARISON: No prior studies are available for comparison. FINDINGS: There is straightening of the usual cervical lordosis. The vertebral body heights and alignment are maintained. Multilevel degenerative disc changes are present, with DISH type changes. No acute fracture or subluxation is identified. IMPRESSION: No acute fracture or subluxation is seen.
--- NOTE | 2016-09-25 20:58 | Emergency Department Report ---
ED Head Injury/Laceration HPI - HPI Occurred When: Today Mechanism: Direct Blow Location: Occipital Pain: None Tetanus Status: Up to Date Symptoms: Loss of Consciousness: No, Nausea: No, Blurred Vision: No, Unusual Behavior: No, Headache: No, Swelling: No, Bruising: No, Break in Skin: No, Bleeding: No ED General PMH - Past Medical History General Medical History: other (alcoholic) Surgical History: no surgical history - Family History Significant Family History: no pertinent family hx - Social History Smoking Status: Current Every Day Smoker ED Review of Systems ROS: Stated complaint: LACERATION TO HEAD Other details as noted in HPI Constitutional: denies: chills, fever Eyes: denies: eye pain, eye discharge, vision change Respiratory: denies: cough, orthopnea, shortness of breath, SOB with exertion Head Inj w/lac Physical Exam - Exam General: Vital signs noted. No distress. Alert and acting appropriately. Head: Yes PERRL, No Hemotympanum, No Hematoma/Ecchymosis, No Epistaxis, No Stepoff/Deformity, No Abrasion Wound Length (cm): 2 Laceration Location: Occipital Chest, Abd, & Ext: No Neck Pain, No Clear Lung Sounds, No Chest Injury/Pain, No Regular Heart Rhythm, No Heart Murmur Neuroligical (Head Inj W/O Lac: No Lethargy, No Disorientation, No Focal Numbness, No Focal Weakness, No Normal Speech (slightly dysarthric from intoxication) - Laceration /Wound Repair Occipital Wound Location: head Wound's Depth, Shape: superficial Wound Explored: clean Betadine Prep?: No Number of Sutures: 2 (keysha) Sterile Dressing Applied?: No ED Disposition Clinical Impression: Alcohol intoxication, Laceration of head Disposition: DC-01 TO HOME OR SELFCARE Is pt being admited?: No Condition: Stable Instructions: Laceration (ED), Alcohol Intoxication (ED) Additional Instructions: Please return to have keysha removed within 5 days Referrals: PRIMARY CARE, [Primary Care Provider] - 3-5 Days
[2016-09-25 21:01] LABS: Basophils % (Auto) 0.8 % (0.0-1.8); Eosinophils % (Auto) 3.9 % (0.0-4.3); Hematocrit 29.3 % (35.5-45.6); Mean Corpuscular HGB Conc 34 % (32-34); Mean Corpuscular Hemoglobin 33 pg (28-32); Mean Corpuscular Volume 97 fl (84-94); Platelet Count 381 K/mm3 (140-440); Red Blood Count 3.02 M/mm3 (3.65-5.03); Red Cell Distribution Width 15.7 % (13.2-15.2); White Blood Count 6.5 K/mm3 (4.5-11.0)
[2016-09-25 21:14] LABS: Anion Gap 19 mmol/L; Blood Urea Nitrogen 8 mg/dL (9-20); Calcium 8.6 mg/dL (8.4-10.2); Carbon Dioxide 23 mmol/L (22-30); Chloride 95.5 mmol/L (98-107); Glucose 75 mg/dL (75-100); Potassium 4.1 mmol/L (3.6-5.0); Sodium 133 mmol/L (137-145)
[2016-09-25 22:20] VITALS: BP 125/69
== END 2016-09-25 22:20 | disposition home or self-care (01) ==
LOC: ED 19:51
DX: S01.01XA Laceration without foreign body of scalp, initial encounter (principal); F10.129 Alcohol abuse with intoxication, unspecified; F17.200 Nicotine dependence, unspecified, uncomplicated; X58.XXXA Exposure to other specified factors, initial encounter; Y93.89 Activity, other specified; Y99.8 Other external cause status; Y92.89 Other specified places as the place of occurrence of the external cause
CPT/HCPCS: 12001; 36415; 70450; 72125; 80048; 85025; 99284; G0480; 80320

== ENCOUNTER 2018-12-29 11:22 | Emergency (ER) | payer MEDICARE ==
--- NOTE | 2018-12-29 11:57 | Cat Scan Report ---
CT head/brain wo con INDICATION / CLINICAL INFORMATION: 68 years Male; Stroke symptoms. TECHNIQUE: Routine CT head without contrast. All CT scans at this location are performed using CT dos e reduction for ALARA by means of automated exposure control. COMPARISON: The previous exams are not to currently available for direct comparison. FINDINGS: BRAIN / INTRACRANIAL CONTENTS: The motion and positioning degrade the image quality at. However, ther e is no old infarct involving the left occipital lobe with encephalomalacia. There otherwise appears to be mild cerebral white matter disease most consistent with microvascular angiopathy. There is advanced cerebral atrophy with associated prominence of the ventricular system. There is als o relative prominence of the CSF along the posterior right cerebral convexity measuring approximately 5 mm in greatest transverse dimension. This finding may reflect a hygroma. There is no CT evidence o f acute intracranial ORBITS: No significant abnormality of visualized orbits. SINUSES / MASTOIDS: There is mild mucosal thickening within the left maxillary sinus. CRANIOCERVICAL JUNCTION: No significant abnormality. ADDITIONAL FINDINGS: None. IMPRESSION: 1. There is an old infarct involving the left occipital lobe. There is otherwise mild microvascular a ngiopathy without CT ends of acute intracranial hemorrhage. 2. There is relative prominence of the CSF attenuation along the posterior right cerebral convexity w hich may reflect small hygroma. 3. There is advanced cerebral atrophy, most notably involving the temporal lobes. The study was specified as code stroke and called emergently to Dr. Herman in the ER at 10:52 AM [facility] standard time. Signer Name: Mathew Zhou MD Signed: 12/29/2018 11:52 AM Workstation Name: [id number]
--- NOTE | 2018-12-29 12:18 | Cat Scan Report ---
CT cervical spine wo con INDICATION / CLINICAL INFORMATION: 68 years Male; fall. TECHNIQUE: Axial CT images of the cervical spine were obtained. Sagittal and coronal reformatted images were pr oduced. All CT scans at this location are performed using CT dose reduction for ALARA by means of aut omated exposure control. COMPARISON: None available. FINDINGS: POST-SURGICAL CHANGES: None. ALIGNMENT: There is a transverse fracture extending to the C4-L5 disc level with component of the sup erior endplate of C5. This finding would appear to be in the setting of ankylosing spondylitis given the transverse in orientation with disruption of the anterior and posterior longitudinal ligaments wh ich are calcified at. There is approximately 12 mm of distraction of the anterior margins along with notable retrolisthesis of C4. Additionally, the angulation of C5 and anterior subluxation of the jayleen cular facets results in marked in degree of spinal stenosis at this segment. VERTEBRAE: There are also fractures involving spinous process of C5 with approximately 3 mm of distra ction at. There is a mildly displaced fracture of the spinous process and posterior lamina of C6. There is prominent anterior osteophytic formation at C7-T1. INTRAVERTEBRAL DISCS: There is more prominent ossification of the posterior longitudinal ligament at the C2-3 level with effacement of the ventral subarachnoid space at. Is mild spondylosis at C3-4. The re is moderate left neural foraminal narrowing at this level. The spondylosis on the left at C5-6 effaces the left lateral recess at. There is moderate foraminal n arrowing bilaterally at. The spondylosis at C6-7 effaces the ventral subarachnoid space at. There sotero ears be moderate left neural foraminal narrowing. There is moderate edema involving the prevertebral soft tissues at C4-5. More inferiorly, there is he terogeneous soft tissue lesion anterior to the visualized T1-T3 levels measuring approximately 3.2 si milar AP by 3.17 m transverse in greatest dimensions at. There is associated displacement of the esop hagus anteriorly at. This finding may represent associated hematoma. Dedicated imaging of the thorax may be considered to fully evaluate this finding. There are small calcified granuloma involving visua lized posterior right lung apex. PARASPINAL SOFT TISSUES: No significant abnormality. ADDITIONAL FINDINGS: None. IMPRESSION: 1. There is a transverse fracture at C4-L5 which appears to be in the setting of ankylosing spondylit is with associated subluxation and anterior distraction as detailed above. The findings result in mar ked spinal stenosis. 2. Additionally, there are displaced fractures involving the spinous processes and posterior lamina o f C5 and C6 as described. 3 there are multilevel degenerative changes involving the cervical spine as described.. Additionally, the ossification the posterior longitudinal ligament at C2-3 effaces the ventral subarachnoid space. 4. There is heterogeneous lesion along the prevertebral soft tissues at the visualized T1-T2 3 levels as detailed above The findings medical detail representative positive clinical test result and were discovered at 1110 a.m. and called to Dr. Herman in the ER at 11:12 AM Central standard time. Signer Name: Mathew Zhou MD Signed: 12/29/2018 12:14 PM Workstation Name: [id number]
[2018-12-29 12:23] LABS: Basophils % (Auto) 0.5 % (0.0-1.8); Eosinophils # (Auto) 0.1 K/mm3 (0.0-0.4); Eosinophils % (Auto) 1.2 % (0.0-4.3); Hematocrit 33.4 % (35.5-45.6); Hemoglobin 11.3 gm/dl (11.8-15.2); Lymphocytes # (Auto) 0.5 K/mm3 (1.2-5.4); Lymphocytes % (Auto) 12.4 % (13.4-35.0); Mean Corpuscular HGB Conc 34 % (32-34); Mean Corpuscular Volume 90 fl (84-94); Monocytes # (Auto) 0.4 K/mm3 (0.0-0.8); Monocytes % (Auto) 9.5 % (0.0-7.3); Platelet Count 186 K/mm3 (140-440); Red Cell Distribution Width 16.4 % (13.2-15.2)
[2018-12-29 12:33] VITALS: BP 137/69
[2018-12-29 12:37] LABS: Creatine Kinase MB 24.2 ng/mL (0.0-4.0)
[2018-12-29 12:39] LABS: Thrombin Time 15.3 Sec. (15.1-19.6)
[2018-12-29 12:40] LABS: Alanine Aminotransferase 16 units/L (7-56); Albumin 3.6 g/dL (3.9-5); BUN/Creatinine Ratio 24; Blood Urea Nitrogen 24 mg/dL (9-20); Calcium 9.1 mg/dL (8.4-10.2); Hemolysis Index 3
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
--- NOTE | 2018-12-29 22:13 | Consultation ---
History of Present Illness Consult date: 12/29/18 Reason for Consult: stroke alert History of present illness: [facility] Date of Service: 12/29/2018 11:16:45 Impression: RO Acute Ischemic Stroke Comments: d/w ED doc in detail- advanced stroke w/u inpatient, not a candidate for acute therapy given >24 hours since LKN Mechanism of Stroke: Not Clear Metrics: Last Known Well: Unknown [facility] Notification Time: 12/29/2018 11:16:45 Arrival Time: 12/29/2018 11:21:44 Stamp Time: 12/29/2018 11:16:45 Time First Login Attempt: 12/29/2018 11:18:42 Video Start Time: 12/29/2018 11:18:42 Symptoms: Left sided weakness NIHSS Start Assessment Time: 12/29/2018 11:37:49 Patient is not a candidate for tPA. Patient was not deemed candidate for tPA thrombolytics because of Last Well Known Above 4.5 Hours. Video End Time: 12/29/2018 11:44:12 CT head was not reviewed. Advanced imaging CTA head and neck obtained. ER physician notified of the decision on thrombolytics management. Our recommendations are outlined below. Recommendations: Antiplatelet Therapy Recommended Recommended Scan: MRI Head Echocardiogram - Transthoracic Echocardiogram DVT prophylaxis: Choice of Primary Team Disposition: Follow up with Teleneurology Follow up Sign Out: Discussed with Emergency Department Provider History of Present Illness: Patient is a 68 years old Male. Patient was brought by EMS for symptoms of Left sided weakness Called out to [facility]ient for a fall, fell this morning 1.5 hours ago and hasn't been acting normal since then, he is unable to squeeze on left side; unable to talk in full sentences; has had a stroke in the past 86/52 BP; gave him 1 bag fluids; bp came up 115/69; has ST elevated noted; he had been normal- somehow she woke up and he then told her he fell; no number for and she is on the way to the hospital per EMS CT head was not reviewed. Examination: 1A: Level of Consciousness - Requires repeated stimulation to arouse + 2 1B: Ask Month and Age - Could Not Answer Either Question Correctly + 2 1C: Blink Eyes & Squeeze Hands - Performs 0 Tasks + 2 2: Test Horizontal Extraocular Movements - Normal + 0 3: Test Visual Bai - No Visual Loss + 0 4: Test Facial Palsy (Use Grimace if Obtunded) - Minor paralysis (flat nasolabial fold, smile asymetry) + 1 5A: Test Left Arm Motor Drift - No Effort Against Maben + 3 5B: Test Right Arm Motor Drift - Some Effort Against Maben + 2 6A: Test Left Leg Motor Drift - No Effort Against Maben + 3 6B: Test Right Leg Motor Drift - No Effort Against Maben + 3 7: Test Limb Ataxia (FNF/Heel-Saha) - Does Not Understand + 0 8: Test Sensation - Complete Loss: Cannot Sense Being Touched At All + 2 9: Test Language/Aphasia - Coma/Unresponsive + 3 10: Test Dysarthria - Mute/Anarthric + 2 11: Test Extinction/Inattention - No abnormality + 0 NIHSS Score: 25 Patient was informed the Neurology Consult would happen via TeleHealth consult by way of interactive audio and video telecommunications and consented to receiving care in this manner. Due to the immediate potential for life-threatening deterioration due to underlying acute neurologic illness, I spent 35 minutes providing critical care. This time includes time for face to face visit via telemedicine, review of medical records, imaging studies and discussion of findings with providers, the patient and/or family. Dr Debra Miner [facility] Medications and Allergies Allergies Allergy/AdvReac Type Severity Reaction Status Date / Time No Known Allergies Allergy Unverified 09/09/16 16:29 Home Medications Medication Instructions Recorded Confirmed Last Taken Type Lipitor 80 mg PO DAILY 04/27/16 08/06/16 08/06/16 History traMADol 50 mg PO Q6H PRN #30 04/27/16 08/06/16 08/06/16 Rx ALBUTEROL Inhaler (OR & NICU) 2 puff IH QID PRN 08/06/16 08/06/16 08/06/16 History [ProAir HFA Inhaler] Aspirin [Adult Low Dose Aspirin EC] 81 mg PO DAILY 08/06/16 08/06/16 08/06/16 History Budesoni/Formotero 160-4.5(Nf) 2 puff IH BID 08/06/16 08/06/16 Unknown History [Symbicort 160-4.5 (Nf)] Divalproex ER [Depakote ER] 500 mg PO QDAY 08/06/16 08/06/16 08/06/16 History Folic Acid [Folvite] 1 mg PO QDAY 08/06/16 08/06/16 08/06/16 History Multivit with Calcium,Iron,Min 1 each PO DAILY 08/06/16 08/06/16 08/06/16 History [Multiple Vitamins For Women] Nicotine [Habitrol] 14 mg TD DAILY 08/06/16 08/06/16 Unknown History Paliperidone Palmitate [Invega 78 mg IM Q4W 08/06/16 08/06/16 Unknown History Sustenna] Tamsulosin [Flomax] 0.4 mg PO QDAY 08/06/16 08/06/16 08/05/16 History Thiamine [Vitamin B-1] 100 mg PO QDAY 08/06/16 08/06/16 08/06/16 History Vit C/Vit E AC/Selenium/Ginkgo 1 each PO DAILY 08/06/16 08/06/16 Unknown History [V-R Memory Complex Caplet] Physical Examination - Vital Signs Vital Signs: Vital Signs BP 134/69 12/29/18 11:41 Results - Laboratory Findings CBC and BMP: 12/29/18 11:59 12/29/18 11:59 Abnormal Lab Findings: Abnormal Labs 12/29/18 12/29/18 11:59 11:59 WBC 4.1 L Hgb 11.3 L Hct 33.4 L RDW 16.4 H Lymph % (Auto) 12.4 L [place] % (Auto) 9.5 H Lymph # 0.5 L Seg Neutrophils % 76.4 H Sodium 135 L Chloride 95.2 L BUN 24 H AST 69 H Total Creatine Kinase 1080 H CK-MB (CK-2) 24.2 H Albumin 3.6 L
== END 2018-12-29 13:37 | disposition other institution (70) ==
LOC: ED 11:22
DX: S12.300A Unspecified displaced fracture of fourth cervical vertebra, initial encounter for closed fracture (principal); I10 Essential (primary) hypertension; E11.9 Type 2 diabetes mellitus without complications; J44.9 Chronic obstructive pulmonary disease, unspecified; F31.9 Bipolar disorder, unspecified; F20.9 Schizophrenia, unspecified; M54.5 Low back pain; M54.2 Cervicalgia; G89.29 Other chronic pain; Z79.899 Other long term (current) drug therapy; W01.198A Fall on same level from slipping, tripping and stumbling with subsequent striking against other object, initial encounter; Y93.89 Activity, other specified; Y92.89 Other specified places as the place of occurrence of the external cause; Y99.8 Other external cause status
CPT/HCPCS: 36415; 70450; 72125; 80053; 80320; 82550; 82553; 82962; 84484; 85025; 85610; 85670; 85730; 93005; 93010; 99291; G0480

== ENCOUNTER 2019-07-03 19:45 | Inpatient (IN) | payer MEDICARE ==
[2019-07-03] MEDS ORDERED: LIP THERAPY VASELINE TP PRN (19:56)
[2019-07-03] MEDS ORDERED: MINERAL OIL/PETROLATUM, WHITE OPHTH OINT 3.5 GM OU PRN (19:56)
[2019-07-03] MEDS ORDERED: SODIUM CHLORIDE 0.9% 1000 ML 1,000 ML IV ONE (19:57)
--- NOTE | 2019-07-03 20:04 | Emergency Department Report ---
HPI - General Time Seen by Provider: 07/03/19 19:56 PUI?: Yes - HPI HPI: 69-year-old male presents to the emergency department via EMS from home with respiratory failure and an unresponsive episode. Apparently the patient was seen going unresponsive by family. When EMS got there the patient had agonal breathing and a faint pulse. He was intubated and received some IV fluid in route. Apparently the patient is DNR and hospice but the family was unable to provide the appropriate paperwork. The patient has history of cervical spine fracture, allegedly a fracture of some level of his back, and is bed bound. He also has a history of a seizure disorder, hypertension, diabetes, previous CVA. Apparently the patient received a dose of his high-dose of hyoscamine just before this all occurred this evening. ED Past Medical Hx - Past Medical History Hx Hypertension: Yes Hx CVA: Yes (with R sided deficits) Hx Heart Attack/AMI: Yes Hx Diabetes: Yes Hx Seizures: Yes Hx Psychiatric Treatment: Yes (schizophrenia, Bipolar) Hx COPD: Yes Hx HIV: No Additional medical history: Chronic lower back and neck pain - Surgical History Hx Pacemaker: No Hx Internal Defibrillator: No Additional Surgical History: left ankle - Social History Smoking Status: Never Smoker Substance Use Type: None - Medications Home Medications: Home Medications Medication Instructions Recorded Confirmed Last Taken Type Lipitor 80 mg PO DAILY 04/27/16 08/06/16 08/06/16 History traMADol 50 mg PO Q6H PRN #30 04/27/16 08/06/16 08/06/16 Rx Albuterol INH(or & Nicu Only) 2 puff IH QID PRN 08/06/16 08/06/16 08/06/16 History [ProAir HFA Inhaler] Aspirin [Adult Low Dose Aspirin EC] 81 mg PO DAILY 08/06/16 08/06/16 08/06/16 History Budesoni/Formotero 160-4.5(Nf) 2 puff IH BID 08/06/16 08/06/16 Unknown History [Symbicort 160-4.5 (Nf)] Divalproex ER [Depakote ER] 500 mg PO QDAY 08/06/16 08/06/16 08/06/16 History Folic Acid [Folvite] 1 mg PO QDAY 08/06/16 08/06/16 08/06/16 History Multivit with Calcium,Iron,Min 1 each PO DAILY 08/06/16 08/06/16 08/06/16 History [Multiple Vitamins For Women] Nicotine [Habitrol] 14 mg TD DAILY 08/06/16 08/06/16 Unknown History Paliperidone Palmitate [Invega 78 mg IM Q4W 08/06/16 08/06/16 Unknown History Sustenna] Tamsulosin [Flomax] 0.4 mg PO QDAY 08/06/16 08/06/16 08/05/16 History Thiamine [Vitamin B-1] 100 mg PO QDAY 08/06/16 08/06/16 08/06/16 History Vit C/Vit E AC/Selenium/Ginkgo 1 each PO DAILY 08/06/16 08/06/16 Unknown History [V-R Memory Complex Caplet] ED Review of Systems ROS: Stated complaint: CARDIAC ARREST Other details as noted in HPI Comment: Unobtainable due to pts medical conditions Physical Exam - Physical Exam Physical Exam: GENERAL: Patient is ill-appearing and unresponsive. HENT: Normocephalic. Atraumatic. Patient has moist mucous membranes. EYES: Unequal pupils but reactive to light. Left pupil is about 4 mm and right pupil is about 2 mm. NECK: Supple. Trachea is midline. CHEST/LUNGS: Rhonchi heard. Patient is intubated but does have spontaneous shallow breaths. HEART/CARDIOVASCULAR: Regular. There is mild tachycardia. ABDOMEN: Abdomen is soft, nontender. Patient has normal bowel sounds. SKIN: Skin is warm and dry. NEURO: Patient is altered and unresponsive. Not following any commands. Withdraws from painful stimuli. MUSCULOSKELETAL: +2/4 femoral and radial pulses. - ABG Interpretation Ph: 7.238 PCO2: 36 PO2: 210 Bicarbonate: 15 Interpretation: metabolic acidosis - Central Line Placement Right Femoral Consent Obtained: emergent situation Time Out Performed: Yes Patient Placed on Monitor/Pulse Ox: Yes MD Prep: mask, gown, gloves Central Line Prep: Chlorhexidine scrub Local Anesthesia Used: Lidocaine 1% Amount of Anesthesia Used (mls): 2 Ultrasound Used for Placement: Yes Central Line Lumen Inserted: triple Bloods Obtained for Lab: Yes Central Line Position: good blood return, all ports aspirated, flus, sutured in place with nyl Dressing Applied: Tegaderm, sterile gauze/tape Patient Tolerated Procedure: well Complications: none ED Medical Decision Making - Lab Data Result diagrams: 07/03/19 22:20 07/03/19 19:57 - EKG Data -: EKG Interpreted by Me EKG shows normal: sinus rhythm, axis, intervals (Prolonged QTC), QRS complexes (Q waves to the inferior leads), ST-T waves Rate: normal - EKG Data When compared to previous EKG there are: no significant change Interpretation: unchanged when compared t (12/29/18) - Radiology Data Radiology results: report reviewed CHEST 1 VIEW INDICATION / CLINICAL INFORMATION: MAIN: ETT placement; Pt presents via EMS with a cheif complaint of respiratory arrest. EMS reports that when they arrival pt was having agonal breathing. Pt was intubated with7.0 tube 17 at teeth. Pt was recently discharge from hospice.. COMPARISON: Chest radiograph 09/09/2016 FINDINGS: SUPPORT DEVICES: Endotracheal tube tip in the midthoracic trachea in the usual position. HEART / MEDIASTINUM: No significant abnormality. LUNGS / PLEURA: Bilateral patchy and consolidative pulmonary opacities are present, mostly in the right lung. No pleural fluid or pneumothorax. Multiple old rib fractures on the left. No acute skeletal abnormality is seen. Multilevel degenerative changes in the thoracic spine. IMPRESSION: Extensive pulmonary parenchymal disease, mostly in the right lung, suggestive of a pneumonia. Atypical/viral etiologies should be considered. CT HEAD WITHOUT CONTRAST INDICATION / CLINICAL INFORMATION: Altered mental status, Pt is on a vent!. TECHNIQUE: All CT scans at this location are performed using CT dose reduction for ALARA by means of automated exposure control. COMPARISON: CT dated 12/29/18 FINDINGS: HEMORRHAGE: None. EXTRA-AXIAL SPACES: Moderately prominent but unchanged. VENTRICULAR SYSTEM: Mildly enlarged but unchanged. CEREBRAL PARENCHYMA: White matter hypodensities likely represent microangiopathy. No definite acute territorial infarct. MIDLINE SHIFT OR HERNIATION: None. CEREBELLUM / BRAINSTEM: No significant abnormality. ORBITS: Normal as visualized. SOFT TISSUES of HEAD: No significant abnormality. CALVARIUM: No significant abnormality. PARANASAL SINUSES / MASTOID AIR CELLS: Normal as visualized. ADDITIONAL FINDINGS: None. IMPRESSION: 1. No acute intracranial abnormality. 2. Chronic and age-related findings appear unchanged. - Medical Decision Making This patient presented to the emergency department from home intubated and unresponsive. Patient was found to be hypothermic and hypotensive. He was given IV fluid resuscitation but did not have any improvement in the hypotension so I placed a central line catheter in the right femoral vein and the patient was started on pressors. Chest x-ray shows bilateral pneumonia. CT scan of the head without contrast does not show any acute bleed, shift, mass, ischemia, or any other acute process. Patient's labs shows a leukocytosis of about 30,000. He has anemia with a hemoglobin of 7.7. Patient also has hyponatremia, lactic acidosis, slightly elevated troponin level and a mild urinary tract infection. The patient was started on antibiotics for the UTI and pneumonia. Despite the leukocytosis, the patient has bilateral pneumonia, bouts of hypoxemia despite being on the ventilator, lymphopenia, and therefore the patient is still a person under investigation for COVID-19. The patient was placed in droplet precautions immediately upon arrival. Every time I have been in his room I have used full PPE including a surgical cap, double gloves, and 95 mask and goggles. I did have a conversation with the patient's but the patient remains a full code despite his previous DNR and hospice status. Patient will be admitted to the ICU and has been accepted for admission by the hospitalist, Dr. Mahmood. Critical Care Time: Yes Critical care time in (mins) excluding proc time.: 75 Critical care attestation.: If time is entered above; I have spent that time in minutes in the direct care of this critically ill patient, excluding procedure time. Due to the immediate potential for life-threatening deterioration due to underlying pulmonary, cardiac and metabolic conditions, I spent 75 minutes of critical care time with the patient. This does not include the time spent doing the central line procedure. Critical Care Time: 75 minutes ED Disposition Clinical Impression: Suspected COVID-19 virus infection, Hyponatremia, Hypoalbuminemia Sepsis Qualifiers: Sepsis type: sepsis due to unspecified organism Sepsis acute organ dysfunction status: unspecified Qualified Code(s): A41.9 - Sepsis, unspecified organism Bilateral pneumonia Qualifiers: Pneumonia type: due to unspecified organism Lung location: unspecified part of lung Qualified Code(s): J18.9 - Pneumonia, unspecified organism Hypotension Qualifiers: Hypotension type: unspecified hypotension type Qualified Code(s): I95.9 - Hypotension, unspecified Altered mental status Qualifiers: Altered mental status type: unspecified Qualified Code(s): R41.82 - Altered mental status, unspecified Disposition: DC-[id number] OP ADMIT IP TO THIS HOSP Is pt being admited?: Yes Condition: Critical Time of Disposition: 00:26
--- NOTE | 2019-07-03 20:54 | XRay Report ---
CHEST 1 VIEW INDICATION / CLINICAL INFORMATION: MAIN: ETT placement; Pt presents via EMS with a cheif complaint of respiratory arrest. EMS reports th at when they arrival pt was having agonal breathing. Pt was intubated with7.0 tube 17 at teeth. Pt w as recently discharge from hospice.. COMPARISON: Chest radiograph 09/09/2016 FINDINGS: SUPPORT DEVICES: Endotracheal tube tip in the midthoracic trachea in the usual position. HEART / MEDIASTINUM: No significant abnormality. LUNGS / PLEURA: Bilateral patchy and consolidative pulmonary opacities are present, mostly in the rig ht lung. No pleural fluid or pneumothorax. Multiple old rib fractures on the left. No acute skeletal abnormality is seen. Multilevel degenerativ e changes in the thoracic spine. IMPRESSION: Extensive pulmonary parenchymal disease, mostly in the right lung, suggestive of a pneumonia. Atypica l/viral etiologies should be considered. Signer Name: Dev Verdin MD Signed: 07/03/2019 8:50 PM Workstation Name: [id number]
[2019-07-03 21:13] LABS: Alanine Aminotransferase 88 units/L (7-56); Albumin 1.8 g/dL (3.9-5); BUN/Creatinine Ratio 46; Blood Urea Nitrogen 23 mg/dL (9-20); Hemolysis Index 34
[2019-07-03 21:21] LABS: ABG Base Excess -11.1 mmol/L (-2.0-3.0); ABG HCO3 15.4 mmol/L (20.0-26.0); ABG Methemoglobin 0.5 % (0.0-1.5); ABG Oxygen Saturation 99.2 % (95.0-99.0); ABG PCO2 36.8 mm Hg; ABG PH 7.238 pH Units (7.350-7.450); ABG PO2 210.8 mm Hg (80.0-90.0)
[2019-07-03 21:24] LABS: Bacteria,Urine 1+ /HPF (Negative); Bilirubin,Urine NEG (Negative); Blood,Urine NEG (Negative); Color,Urine Amber (Yellow); Mucus,Urine FEW /HPF
[2019-07-03 21:24] LABS: LDL Cholesterol,Direct 25 mg/dL (50-130)
[2019-07-03 21:32] LABS: Amphetamine Screen,Urine PRESUMPTIVE NEGATIVE; Benzodiazepines Screen,Urine PRESUMPTIVE NEGATIVE; Cannabinoid Screen,Urine PRESUMPTIVE NEGATIVE; Cocaine Screen,Urine PRESUMPTIVE NEGATIVE; Methadone Screen,Urine PRESUMPTIVE NEGATIVE; Opiate Screen,Urine PRESUMPTIVE NEGATIVE
[2019-07-03 21:38] LABS: Chol/HDL Ratio 2.35 %; HDL Cholesterol 20 mg/dL (40-59)
[2019-07-03] MEDS ORDERED: KETAMINE 500 MG/5 ML VIAL MDV ONE (21:58)
[2019-07-03] MEDS ORDERED: NORepinephrine/NS 4 MG-250 ML 4 MG/250 ML BAG IV ONE (21:59)
[2019-07-03 22:40] LABS: Hematocrit 23.9 % (35.5-45.6); Hemoglobin 7.7 gm/dl (11.8-15.2); Mean Corpuscular HGB Conc 32 % (32-34); Mean Corpuscular Volume 81 fl (84-94); Platelet Count 459 K/mm3 (140-440); Red Blood Count 2.96 M/mm3 (3.65-5.03); Red Cell Distribution Width 18.6 % (13.2-15.2)
[2019-07-03 22:42] LABS: INR 1.26 (0.87-1.13)
[2019-07-03] MEDS ORDERED: KETAMINE 500 MG/5 ML VIAL MDV IV ONE (22:43)
[2019-07-03] MEDS: NORepinephrine/NS 4 MG-250 ML 4 MG/250 ML BAG IV SCH (22:45)
[2019-07-03] MEDS ORDERED: cefTRIAXone/NS 1 GM/50 ML 1 GM/50 ML BAG IV ONE (22:48)
[2019-07-03] MEDS ORDERED: AZITHROMYCIN 500 MG in SODIUM CHLORIDE 0.9% 250ML 250 ML IV ONE (23:07)
--- NOTE | 2019-07-04 00:21 | Cat Scan Report ---
CT HEAD WITHOUT CONTRAST INDICATION / CLINICAL INFORMATION: Altered mental status, Pt is on a vent!. TECHNIQUE: All CT scans at this location are performed using CT dose reduction for ALARA by means of automated e xposure control. COMPARISON: CT dated 12/29/18 FINDINGS: HEMORRHAGE: None. EXTRA-AXIAL SPACES: Moderately prominent but unchanged. VENTRICULAR SYSTEM: Mildly enlarged but unchanged. CEREBRAL PARENCHYMA: White matter hypodensities likely represent microangiopathy. No definite acute t erritorial infarct. MIDLINE SHIFT OR HERNIATION: None. CEREBELLUM / BRAINSTEM: No significant abnormality. ORBITS: Normal as visualized. SOFT TISSUES of HEAD: No significant abnormality. CALVARIUM: No significant abnormality. PARANASAL SINUSES / MASTOID AIR CELLS: Normal as visualized. ADDITIONAL FINDINGS: None. IMPRESSION: 1. No acute intracranial abnormality. 2. Chronic and age-related findings appear unchanged. Signer Name: Vida Patrick MD Signed: 07/04/2019 12:16 AM Workstation Name: [id number]
[2019-07-04 02:23] LABS: Basophils % (Manual) 0 % (0.0-1.8); Total Cells Counted 200
[2019-07-04 02:24] LABS: Anisocytosis 1+; Band Neutrophils # (Manual) 1.4 K/mm3; Eosinophils % (Manual) 0 % (0.0-4.3); Hypochromasia 1+
[2019-07-04 02:25] LABS: Burr Cells 1+; Platelet Estimate Consistent w Auto
[2019-07-04 02:47] LABS: C-Reactive Protein 16.7 mg/dL (0.00-1.30)
[2019-07-04] MEDS ORDERED: THIAMINE 500 MG in SODIUM CHLORIDE 0.9% 50 ML IV STA (04:24)
[2019-07-04] MEDS ORDERED: ACETAMINOPHEN 325 MG TAB PO PRN (04:24)
[2019-07-04] MEDS ORDERED: NALOXONE 0.4 MG/1 ML INJ IV PRN (04:24)
[2019-07-04] MEDS ORDERED: NORepinephrine/NS 4 MG-250 ML 4 MG/250 ML BAG IV ONE ×4 (04:30→23:30)
[2019-07-04] MEDS: NORepinephrine/NS 4 MG-250 ML 4 MG/250 ML BAG IV SCH ×2 (04:52→09:40)
--- NOTE | 2019-07-04 04:56 | History and Physical Report ---
History of Present Illness Date of examination: 07/04/19 Date of admission: 07/04/19 00:26 Chief complaint: unresponsiveness History of present illness: 69-year-old male with PMH of CVA with RHP, HTN, DM2, SCZ, Dementia, Alcohol use D/o, Seizure D/O, presents to the emergency department via EMS from home with progressive SOB and impending espiratory failure with an unresponsive episode. Apparently the patient was witnessed becoming unresponsive by family members. Reportedly, pt had just gotten a high dose of Hyoscamine When EMS got there, the patient was agonal breathing and had a faint pulse. No CPR was indicated per EMS. PT was intubated and received some IV fluid en route to the hospital. THe pt [facility] and reportedly the patient is a DNR according to the family but they were unable to provide the appropriate paperwo rk and to explain why the pt was discharged from hospice. The patient is bed bound and has LE atrophy and contractures. He also has history of cervical spine fracture, allegedly a fracture of some level of his back. A reliable HPI cannot be obtained from the pt due to mechanical ventilation. In the ED, pt was found to have bilateral PNA on CXR and WBC was 30K. PUI?: No COVID19: Pending Past History Past Medical History: COPD, diabetes, hypertension, seizures Social history: full code. denies: smoking, alcohol abuse Family history: hypertension Medications and Allergies Allergies Allergy/AdvReac Type Severity Reaction Status Date / Time No Known Allergies Allergy Unverified 09/09/16 16:29 Home Medications Medication Instructions Recorded Confirmed Last Taken Type Lipitor 80 mg PO DAILY 04/27/16 08/06/16 08/06/16 History traMADol 50 mg PO Q6H PRN #30 04/27/16 08/06/16 08/06/16 Rx Albuterol INH(or & Nicu Only) 2 puff IH QID PRN 08/06/16 08/06/16 08/06/16 History [ProAir HFA Inhaler] Aspirin [Adult Low Dose Aspirin EC] 81 mg PO DAILY 08/06/16 08/06/16 08/06/16 History Budesoni/Formotero 160-4.5(Nf) 2 puff IH BID 08/06/16 08/06/16 Unknown History [Symbicort 160-4.5 (Nf)] Divalproex ER [Depakote ER] 500 mg PO QDAY 08/06/16 08/06/16 08/06/16 History Folic Acid [Folvite] 1 mg PO QDAY 08/06/16 08/06/16 08/06/16 History Multivit with Calcium,Iron,Min 1 each PO DAILY 08/06/16 08/06/16 08/06/16 History [Multiple Vitamins For Women] Nicotine [Habitrol] 14 mg TD DAILY 08/06/16 08/06/16 Unknown History Paliperidone Palmitate [Invega 78 mg IM Q4W 08/06/16 08/06/16 Unknown History Sustenna] Tamsulosin [Flomax] 0.4 mg PO QDAY 08/06/16 08/06/16 08/05/16 History Thiamine [Vitamin B-1] 100 mg PO QDAY 08/06/16 08/06/16 08/06/16 History Vit C/Vit E AC/Selenium/Ginkgo 1 each PO DAILY 08/06/16 08/06/16 Unknown History [V-R Memory Complex Caplet] Active Meds: Active Medications Acetaminophen (Tylenol) 650 mg PO Q6H PRN PRN Reason: Pain MILD(1-3)/Fever >100.5/MURO Acetaminophen (Tylenol) 650 mg [place] Q6H PRN PRN Reason: Pain MILD(1-3)/Fever >100.5/MURO Famotidine (Pepcid) 20 mg IV BID TAMMIE Hydrophilic Ointment (Vaseline Lip Therapy) 1 applic TP Q2HR PRN PRN Reason: Dry Lips Norepinephrine (Levophed Drip 4 Mg/Ns 250 Ml) 4 mg in 250 mls @ 7.5 mls/hr IV TITR TAMMIE; Protocol Last Admin: 07/03/19 22:45 Dose: 10 mcg/min, 37.5 mls/hr Documented by: Lactated Ringer's (Lactated Ringers) 1,000 mls @ 125 mls/hr IV DIRECT TAMMIE Stop: 07/06/19 12:59 Thiamine HCl 500 mg/ Sodium (Chloride) 55 mls @ 100 mls/hr IV BID STA Stop: 07/04/19 04:56 Cefepime HCl (Cefepime/Ns 2 Gm/100 Ml) 2 gm in 100 mls @ 200 mls/hr IV Q8HR TAMMIE; Protocol Morphine Sulfate (Morphine) 2 mg IV Q4H PRN PRN Reason: Pain, Moderate (4-6) Multi-Ingred Cream/Lotion/Oil/Oint (Artificial Tears Ophth Oint) 1 applic OU Q4HR PRN PRN Reason: Dry Eye(s) Naloxone HCl (Naloxone) 0.1 mg IV Q2MIN PRN PRN Reason: Res Rate </= 8 or 02 SAT < 92% Sodium Chloride (Sodium Chloride Flush Syringe 10 Ml) 10 ml IV BID TAMMIE Sodium Chloride (Sodium Chloride Flush Syringe 10 Ml) 10 ml IV PRN PRN PRN Reason: LINE FLUSH Exam - Constitutional Vitals: Temp Pulse Resp BP Pulse Ox 92.3 F L 90 28 H 101/61 88 07/03/19 20:09 07/04/19 04:15 07/04/19 04:15 07/04/19 04:15 07/04/19 04:15 General appearance: Present: other (intubated) - EENT Eyes: Present: PERRL ENT: hearing intact, clear oral mucosa - Neck Neck: Present: supple, normal ROM - Respiratory Respiratory effort: normal Respiratory: bilateral: CTA, diminished - Cardiovascular Heart Sounds: Present: S1 & S2. Absent: rub, click - Extremities Extremities: pulses symmetrical, No edema Peripheral Pulses: within normal limits - Abdominal General gastrointestinal: Present: soft, non-tender, non-distended, normal bowel sounds Male genitourinary: Present: normal - Integumentary Integumentary: Present: clear, warm, dry - Musculoskeletal Musculoskeletal: gait normal, strength equal bilaterally - Psychiatric Psychiatric: appropriate mood/affect, intact judgment & insight - Neurologic Neurologic: CNII-XII intact, moves all extremities Results - Labs CBC & Chem 7: 07/03/19 22:20 07/03/19 19:57 Labs: Laboratory Last Values WBC 30.5 K/mm3 (4.5-11.0) H 07/03/19 22:20 RBC 2.96 M/mm3 (3.65-5.03) L 07/03/19 22:20 Hgb 7.7 gm/dl (11.8-15.2) L 07/03/19 22:20 Hct 23.9 % (35.5-45.6) L 07/03/19 22:20 MCV 81 fl (84-94) L 07/03/19 22:20 MCH 26 pg (28-32) L 07/03/19 22:20 MCHC 32 % (32-34) 07/03/19 22:20 RDW 18.6 % (13.2-15.2) H 07/03/19 22:20 Plt Count 459 K/mm3 (140-440) H 07/03/19 22:20 Lymph % (Auto) Client Relationship Executive 07/03/19 22:20 Miller % (Auto) Client Relationship Executive 07/03/19 22:20 Eos % (Auto) Client Relationship Executive 07/03/19 22:20 Baso % (Auto) Client Relationship Executive 07/03/19 22:20 Lymph # Client Relationship Executive 07/03/19 22:20 Miller # Client Relationship Executive 07/03/19 22:20 Eos # Client Relationship Executive 07/03/19 22:20 Baso # Client Relationship Executive 07/03/19 22:20 Seg Neutrophils % Client Relationship Executive 07/03/19 22:20 Seg Neutrophils # Client Relationship Executive 07/03/19 22:20 PT 16.0 Sec. (12.2-14.9) H 07/03/19 22:20 INR 1.26 (0.87-1.13) H 07/03/19 22:20 D-Dimer 759.77 ng/mlDDU (0-234) H 07/04/19 Unknown ABG pH 7.238 pH Units (7.350-7.450) L 07/03/19 21:10 ABG pCO2 36.8 mm Hg 07/03/19 21:10 ABG pO2 210.8 mm Hg (80.0-90.0) H 07/03/19 21:10 ABG HCO3 15.4 mmol/L (20.0-26.0) L 07/03/19 21:10 ABG O2 Saturation 99.2 % (95.0-99.0) H 07/03/19 21:10 ABG O2 Content 11.5 (0.0-44) 07/03/19 21:10 ABG Base Excess -11.1 mmol/L (-2.0-3.0) L 07/03/19 21:10 ABG Hemoglobin 8.0 gm/dl (14.0-18.0) L 04/14/20 21:10 ABG Carboxyhemoglobin 1.2 % (0.0-5.0) 07/03/19 21:10 ABG Methemoglobin 0.5 % (0.0-1.5) 07/03/19 21:10 Oxyhemoglobin 97.5 % (95.0-99.0) 07/03/19 21:10 FiO2 100 % 07/03/19 21:10 Sodium 124 mmol/L (137-145) L 07/03/19 19:57 Potassium 4.8 mmol/L (3.6-5.0) 07/03/19 19:57 Chloride 92.9 mmol/L (98-107) L 07/03/19 19:57 Carbon Dioxide 10 mmol/L (22-30) L 07/03/19 19:57 Anion Gap 26 mmol/L 07/03/19 19:57 BUN 23 mg/dL (9-20) H 07/03/19 19:57 Creatinine 0.5 mg/dL (0.8-1.5) L 07/03/19 19:57 Estimated GFR > 60 ml/min 07/03/19 19:57 BUN/Creatinine Ratio 46 % 07/03/19 19:57 Glucose 118 mg/dL (75-100) H 07/03/19 19:57 Lactic Acid 7.10 mmol/L (0.7-2.0) H* 07/03/19 23:58 Calcium 7.0 mg/dL (8.4-10.2) L 07/03/19 19:57 Ferritin 1301.0 ng/mL (13.0-400.0) H 07/04/19 Unknown Total Bilirubin 0.20 mg/dL (0.1-1.2) 07/03/19 19:57 AST 70 units/L (5-40) H 07/03/19 19:57 ALT 88 units/L (7-56) H 07/03/19 19:57 Alkaline Phosphatase 108 units/L (35-129) 07/03/19 19:57 Ammonia 35.0 umol/L (25-60) 07/03/19 23:58 Lactate Dehydrogenase 242 units/L (91-180) H 07/04/19 Unknown Troponin T 0.032 ng/mL (0.00-0.029) H 07/03/19 19:57 C-Reactive Protein 16.70 mg/dL (0.00-1.30) H 07/04/19 Unknown Total Protein 5.0 g/dL (6.3-8.2) L 07/03/19 19:57 Albumin 1.8 g/dL (3.9-5) L 07/03/19 19:57 Albumin/Globulin Ratio 0.6 % 07/03/19 19:57 Triglycerides 33 mg/dL (2-149) 07/03/19 19:57 Cholesterol 47 mg/dL (50-199) L 07/03/19 19:57 LDL Cholesterol Direct 25 mg/dL (50-130) L 07/03/19 19:57 HDL Cholesterol 20 mg/dL (40-59) L 07/03/19 19:57 Cholesterol/HDL Ratio 2.35 % 07/03/19 19:57 TSH 2.170 mlU/mL (0.270-4.200) 07/03/19 22:20 Urine Color Naima (Yellow) 07/03/19 21:13 Urine Turbidity Cloudy (Clear) 07/03/19 21:13 Urine pH 5.0 (5.0-7.0) 07/03/19 21:13 Ur Specific [place] 1.016 (1.003-1.030) 07/03/19 21:13 Urine Protein 30 mg/dl mg/dL (Negative) 07/03/19 21:13 Urine Glucose (UA) Neg mg/dL (Negative) 07/03/19 21:13 Urine Ketones Neg mg/dL (Negative) 07/03/19 21:13 Urine Blood Neg (Negative) 07/03/19 21:13 Urine Nitrite Neg (Negative) 07/03/19 21:13 Urine Bilirubin Neg (Negative) 07/03/19 21:13 Urine Urobilinogen 2.0 mg/dL (<2.0) 07/03/19 21:13 Ur Leukocyte Esterase Neg (Negative) 07/03/19 21:13 Urine WBC (Auto) 12.0 /HPF (0.0-6.0) H 07/03/19 21:13 Urine RBC (Auto) 6.0 /HPF (0.0-6.0) 07/03/19 21:13 U Epithel Cells (Auto) 1.0 /HPF (0-13.0) 07/03/19 21:13 Urine Bacteria (Auto) 1+ /HPF (Negative) 07/03/19 21:13 Urine WBC Clumps Few /HPF 07/03/19 21:13 Urine Mucus Few /HPF 07/03/19 21:13 Urine Opiates Screen Presumptive negative 07/03/19 21:13 Urine Methadone Screen Presumptive negative 07/03/19 21:13 Ur Barbiturates Screen Presumptive negative 07/03/19 21:13 Ur Phencyclidine Scrn Presumptive negative 07/03/19 21:13 Ur Amphetamines Screen Presumptive negative 07/03/19 21:13 U Benzodiazepines Scrn Presumptive negative 07/03/19 21:13 Urine Cocaine Screen Presumptive negative 07/03/19 21:13 U Marijuana (THC) Screen Presumptive negative 07/03/19 21:13 Drugs of Abuse Note Disclamer 07/03/19 21:13 Plasma/Serum Alcohol < 0.01 % (0-0.07) 07/03/19 23:58 Wright/IV: IV Catheter Type [Left INT / Saline Lock External Jugular] Assessment and Plan Assessment and plan: Suspected COVid Pt- Acute respiratory Failure with Hypoxia - Due to bilateral PNA +/- COVID 19 infection. WBC of 30K is suggestive of a bacterial PNA however COVID still needs to be ruled out given Prevelanc - continue to manage per [facility] protocol - IV IVF with LR, - vancomycin and Cefepime -Await Covid 19 testing Unresponsiveness - Meds related vs respiratory arrest - Hold Hyoscamine. monitor Troponins. - cardiac work up as indicated. BIlateral PNA - see above - Given hx of CVA- is this aspiration pneumonia?? very plausible - Swallow eval once extubated Anemia, Microcytic - check iron, TIBC - monitor Pressure Ulcers - buttocks, right lateral foot area - present upon admission - wound care consult DM type 2 - Accuchecks HTN Essential -relatively low BP - on IVF. monitor Seizure D/o/CVA, COPD/immobility/BIpolar D/o/SCZ chronic medical conditions -appear compensated. - continue meds probable DNR- family to bring paperwork or make a clear decision about code status. To remain FUll code for now.
[2019-07-04] MEDS ORDERED: VANCOMYCIN PHARMACY TO DOSE IV SCH (05:00)
[2019-07-04] MEDS ORDERED: VANCOMYCIN 1,750 MG in SODIUM CHLORIDE 0.9% 500 ML 500 ML IV ONE (05:15)
[2019-07-04 05:34] LABS: ABG Base Excess -7.7 mmol/L (-2.0-3.0); ABG HCO3 17.8 mmol/L (20.0-26.0); ABG Methemoglobin 0.4 % (0.0-1.5); ABG Oxygen Saturation 93.8 % (95.0-99.0); ABG PCO2 36.1 mm Hg; ABG PH 7.31 pH Units (7.350-7.450); ABG PO2 73.2 mm Hg (80.0-90.0)
[2019-07-04] MEDS ORDERED: DEXTROSE 50% IN WATER (25GM) 50 ML SYRINGE IV PRN (06:54)
[2019-07-04 07:17] LABS: Hematocrit 25.4 % (35.5-45.6); Hemoglobin 8.3 gm/dl (11.8-15.2); Mean Corpuscular HGB Conc 33 % (32-34); Mean Corpuscular Volume 79 fl (84-94); Platelet Count 433 K/mm3 (140-440); Red Blood Count 3.22 M/mm3 (3.65-5.03); Red Cell Distribution Width 18.6 % (13.2-15.2)
[2019-07-04 07:35] LABS: Iron 9 ug/dL (49-181); Total Iron Binding Capacity 97 mcg/dL (250-450)
[2019-07-04 07:36] LABS: Alanine Aminotransferase 91 units/L (7-56); BUN/Creatinine Ratio 52; Blood Urea Nitrogen 26 mg/dL (9-20); Hemolysis Index 7
[2019-07-04] MEDS ORDERED: CEFEPIME/NS 2 GM/100 ML 2 GM/100 ML BAG IV ONE ×2 (08:43→22:35)
--- NOTE | 2019-07-04 08:51 | XRay Report ---
CHEST 1 VIEW INDICATION: follow up respiratory failure. COMPARISON: 07/03/2019 FINDINGS: Support devices: Stable satisfactory device positioning. The endotracheal tube tip is in satisfactory position and the nasogastric tube tip is below the diaphragm. Heart: Within normal limits. Lungs/Pleura: Extensive bilateral multi lobar patchy airspace disease. New left upper lobe and left l ower lobe patchy airspace disease and slightly increased right upper lobe and right basal patchy airs pace disease. No pleural effusion. No pneumothorax. Additional findings: None. IMPRESSION: 1. Worsened bilateral multi lobar patchy airspace disease. Signer Name: Niranjan Carr MD Signed: 07/04/2019 8:47 AM Workstation Name: [id number]
[2019-07-04] MEDS: CEFEPIME/NS 2 GM/100 ML 2 GM/100 ML BAG IV SCH ×4 (09:09→23:14)
[2019-07-04] MEDS ORDERED: LACTATED RINGERS 1,000 ML ONE ×2 (09:52→18:12)
[2019-07-04] MEDS ORDERED: SIMPLE SYRUP 15 ML FEEDTUBE PRN (10:04)
[2019-07-04] MEDS: FAMOTIDINE 20 MG/2 ML INJ IV SCH ×2 (10:09→22:30)
[2019-07-04] MEDS: INSULIN LISPRO 100 UNIT/ML SUB-Q SCH ×2 (10:09→18:23)
[2019-07-04 10:27] LABS: Band Neutrophils # (Manual) 4.4 K/mm3; Basophils % (Manual) 0 % (0.0-1.8); Burr Cells 2+; Eosinophils % (Manual) 0 % (0.0-4.3); Monocytes % (Manual) 0 % (0.0-7.3); Platelet Estimate Consistent w Auto; Total Cells Counted 100
[2019-07-04 10:37] LABS: C-Reactive Protein 15.5 mg/dL (0.00-1.30)
--- NOTE | 2019-07-04 13:57 | Event Note ---
Date: 07/11/19 Prolonged CARE note: 25 minutes Patient seen and examined 69-year-old male with PMH of CVA with RHP, HTN, DM2, SCZ, Dementia, Alcohol use D/o, Seizure D/O, presents to the emergency department via EMS from home with progressive SOB and impending respiratory failure with an unresponsive episode. In the ED, pt was found to have bilateral PNA on CXR and WBC was 30K. Patient is currently intubated, suspected for COVID-19. Test will be ordered when rapid flu is negative Continue current management, prognosis guarded, detailed history unavailable Continue to monitor inflammatory markers, consult ID for severe sepsis with bilateral pneumonia We will also consult nephrology for severe hyponatremia Physical exam: General appearance: Present: other (intubated) - EENT Eyes: Present: PERRL ENT: hearing intact, clear oral mucosa - Neck Neck: Present: supple, normal ROM - Respiratory Respiratory effort: normal Respiratory: bilateral: CTA, diminished - Cardiovascular Heart Sounds: Present: S1 & S2. Absent: rub, click - Extremities Extremities: pulses symmetrical, No edema Peripheral Pulses: within normal limits - Abdominal General gastrointestinal: Present: soft, non-tender, non-distended, normal bowel sounds Male genitourinary: Present: normal - Integumentary Integumentary: Present: clear, warm, dry - Musculoskeletal Musculoskeletal: gait normal, strength equal bilaterally - Psychiatric Psychiatric: appropriate mood/affect, intact judgment & insight - Neurologic Neurologic: CNII-XII intact, moves all extremities
--- NOTE | 2019-07-04 14:59 | Consultation ---
History of Present Illness Consult date: 07/04/19 Requesting physician: KARL ARANDA Reason for consult: other (Acute Hypoxemic Resp Failure; Bilateral Pneumonia) History of present illness: PULMONARY/CCM CONSULT NOTE (Full dictation # [id number]) Please see dictated notes for full details Past History Past Medical History: COPD, diabetes, hypertension, seizures Social history: full code. denies: smoking, alcohol abuse Family history: hypertension Medications and Allergies Allergies Allergy/AdvReac Type Severity Reaction Status Date / Time No Known Allergies Allergy Unverified 09/09/16 16:29 Home Medications Medication Instructions Recorded Confirmed Last Taken Type Acetaminophen [Tylenol] 500 mg PO TID 07/04/19 07/04/19 Unknown History Albuterol Sulfate [Proair 90 mcg IH TID 07/04/19 07/04/19 Unknown History Digihaler] Amlodipine Besylate [Norvasc] 2.5 mg PO QDAY 07/04/19 07/04/19 Unknown History Aspirin [Aspirin BABY CHEW TAB] 81 mg PO QDAY 07/04/19 07/04/19 Unknown History Atorvastatin Calcium [Lipitor] 80 mg PO QDAY 07/04/19 07/04/19 Unknown History Budesonide/Formoterol Fumarate 10.2 gm IH BID 07/04/19 07/04/19 Unknown History [Budesonide-Formoterol 160-4.5] Divalproex ER [DepaKOTE ER] 1,000 mg PO QDAY 07/04/19 07/04/19 Unknown History Docusate Sodium [Colace] 100 mg PO QDAY 07/04/19 07/04/19 Unknown History Hydrophilic Ointment [Dermafix] 113 gm TP QDAY 07/04/19 07/04/19 Unknown History Losartan [Cozaar] 100 mg PO QDAY 07/04/19 07/04/19 Unknown History Metformin HCl [Metformin HCl ER] 500 mg PO QDAY 07/04/19 07/04/19 Unknown History Multivit with Minerals/Ginseng 1 each PO QDAY 07/04/19 07/04/19 Unknown History [Super Ginseng Multivit Cap] Quetiapine Fumarate [SEROquel Xr] 400 mg PO QHS 07/04/19 07/04/19 Unknown History RX: Benztropine Mesylate 0.5 mg PO QDAY 07/04/19 07/04/19 Unknown History RX: Folic Acid [Folvite] 1 mg PO QDAY 07/04/19 07/04/19 Unknown History RX: Metoprolol Tartrate 25 mg PO BID 07/04/19 07/04/19 Unknown History Sertraline HCl [Zoloft] 100 mg PO QDAY 07/04/19 07/04/19 Unknown History Sildenafil Citrate [Viagra] 100 mg PO QDAY PRN 07/04/19 07/04/19 Unknown History Tamsulosin [Flomax] 0.4 mg PO QDAY 07/04/19 07/04/19 Unknown History Active Meds: Active Medications Acetaminophen (Tylenol) 650 mg PO Q6H PRN PRN Reason: Pain MILD(1-3)/Fever >100.5/MURO Acetaminophen (Tylenol) 650 mg [place] Q6H PRN PRN Reason: Pain MILD(1-3)/Fever >100.5/MURO Lipase/Protease/Amylase (Pancreaze Dr 10,500 Unit) 1 each FEEDTUBE PRN PRN PRN Reason: For Clogged Feeding Tube Aspirin (Baby Aspirin) 81 mg PO QDAY [facility] Dextrose (D50w (25gm) Syringe) 50 ml IV Q30MIN PRN; Protocol PRN Reason: Hypoglycemia Divalproex Sodium (Depakote Er) 1,000 mg PO QDAY [facility] Famotidine (Pepcid) 20 mg IV BID [facility] Last Admin: 07/04/19 10:09 Dose: 20 mg Documented by: Folic Acid (Folvite) 1 mg PO QDAY [facility] Hydrophilic Ointment (Vaseline Lip Therapy) 1 applic TP Q2HR PRN PRN Reason: Dry Lips Norepinephrine (Levophed Drip 4 Mg/Ns 250 Ml) 4 mg in 250 mls @ 7.5 mls/hr IV TITR [facility]; Protocol Last Titration: 07/04/19 11:11 Dose: 10 mcg/min, 37.5 mls/hr Documented by: Lactated Ringer's (Lactated Ringers) 1,000 mls @ 125 mls/hr IV DIRECT [facility] Stop: 07/06/19 12:59 Cefepime HCl (Cefepime/Ns 2 Gm/100 Ml) 2 gm in 100 mls @ 200 mls/hr IV Q8HR [facility]; Protocol Last Admin: 07/04/19 09:09 Dose: 200 mls/hr Documented by: Vancomycin HCl 1,500 mg/ (Sodium Chloride) 530 mls @ 333.333 mls/hr IV Q12H [facility] Insulin Human Lispro (Humalog) 0 unit SUB-Q Q4HR [facility]; Protocol Last Admin: 07/04/19 10:09 Dose: Not Given Documented by: Morphine Sulfate (Morphine) 2 mg IV Q4H PRN PRN Reason: Pain, Moderate (4-6) Multi-Ingred Cream/Lotion/Oil/Oint (Artificial Tears Ophth Oint) 1 applic OU Q4HR PRN PRN Reason: Dry Eye(s) Naloxone HCl (Naloxone) 0.1 mg IV Q2MIN PRN PRN Reason: Res Rate </= 8 or 02 SAT < 92% Simple Syrup (Simple Syrup) 15 ml FEEDTUBE PRN PRN PRN Reason: Hypoglycemia Simple Syrup (Simple Syrup) 30 ml FEEDTUBE PRN PRN PRN Reason: Hypoglycemia Sodium Bicarbonate (Sodium Bicarbonate) 325 mg FEEDTUBE PRN PRN PRN Reason: For Clogged Feeding Tube Sodium Chloride (Sodium Chloride Flush Syringe 10 Ml) 10 ml IV BID [facility] Last Admin: 07/04/19 10:09 Dose: 10 ml Documented by: Sodium Chloride (Sodium Chloride Flush Syringe 10 Ml) 10 ml IV PRN PRN PRN Reason: LINE FLUSH Physical Examination Vital signs: Vital Signs Pulse Resp 93 H 23 07/03/19 19:28 07/03/19 19:28 Results - Laboratory Findings CBC and BMP: 07/07/19 05:34 07/07/19 05:34 ABG ABG pH 7.310 pH Units (7.350-7.450) L 07/04/19 05:15 ABG pCO2 36.1 mm Hg 07/04/19 05:15 ABG pO2 73.2 mm Hg (80.0-90.0) L 07/04/19 05:15 ABG O2 Saturation 93.8 % (95.0-99.0) L 07/04/19 05:15 PT/INR, D-dimer PT 16.0 Sec. (12.2-14.9) H 07/03/19 22:20 INR 1.26 (0.87-1.13) H 07/03/19 22:20 D-Dimer 759.77 ng/mlDDU (0-234) H 07/04/19 Unknown Abnormal lab findings: Abnormal Labs 07/03/19 07/03/19 07/03/19 19:57 21:10 21:13 WBC RBC Hgb Hct MCV MCH RDW Plt Count Seg Neuts % (Manual) Lymphocytes % (Manual) Seg Neutrophils # Man Lymphocytes # (Manual) PT INR D-Dimer ABG pH 7.238 L ABG pO2 210.8 H ABG HCO3 15.4 L ABG O2 Saturation 99.2 H ABG Base Excess -11.1 L ABG Hemoglobin 8.0 L Oxyhemoglobin Sodium 124 L Potassium Chloride 92.9 L Carbon Dioxide 10 L BUN 23 H Creatinine 0.5 L Glucose 118 H Lactic Acid Calcium 7.0 L Iron TIBC Ferritin AST 70 H ALT 88 H Lactate Dehydrogenase Troponin T 0.032 H C-Reactive Protein Total Protein 5.0 L Albumin 1.8 L Cholesterol 47 L LDL Cholesterol Direct 25 L HDL Cholesterol 20 L Urine WBC (Auto) 12.0 H 07/03/19 07/03/19 07/03/19 22:20 22:20 22:20 WBC 30.5 H RBC 2.96 L Hgb 7.7 L Hct 23.9 L MCV 81 L MCH 26 L RDW 18.6 H Plt Count 459 H Seg Neuts % (Manual) 93.0 H Lymphocytes % (Manual) 0.5 L Seg Neutrophils # Man 28.4 H Lymphocytes # (Manual) 0.2 L PT 16.0 H INR 1.26 H D-Dimer ABG pH ABG pO2 ABG HCO3 ABG O2 Saturation ABG Base Excess ABG Hemoglobin Oxyhemoglobin Sodium Potassium Chloride Carbon Dioxide BUN Creatinine Glucose Lactic Acid 6.90 H* Calcium Iron TIBC Ferritin AST ALT Lactate Dehydrogenase Troponin T C-Reactive Protein Total Protein Albumin Cholesterol LDL Cholesterol Direct HDL Cholesterol Urine WBC (Auto) 07/03/19 07/04/19 07/04/19 23:58 05:15 07:05 WBC 17.1 H RBC 3.22 L Hgb 8.3 L Hct 25.4 L MCV 79 L MCH 26 L RDW 18.6 H Plt Count Seg Neuts % (Manual) 74.0 H Lymphocytes % (Manual) 0 L Seg Neutrophils # Man 12.7 H Lymphocytes # (Manual) 0.0 L PT INR D-Dimer ABG pH 7.310 L ABG pO2 73.2 L ABG HCO3 17.8 L ABG O2 Saturation 93.8 L ABG Base Excess -7.7 L ABG Hemoglobin 9.6 L Oxyhemoglobin 92.3 L Sodium Potassium Chloride Carbon Dioxide BUN Creatinine Glucose Lactic Acid 7.10 H* Calcium Iron TIBC Ferritin AST ALT Lactate Dehydrogenase Troponin T C-Reactive Protein Total Protein Albumin Cholesterol LDL Cholesterol Direct HDL Cholesterol Urine WBC (Auto) 07/04/19 07/04/19 07/04/19 07:05 07:05 07:05 WBC RBC Hgb Hct MCV MCH RDW Plt Count Seg Neuts % (Manual) Lymphocytes % (Manual) Seg Neutrophils # Man Lymphocytes # (Manual) PT INR D-Dimer ABG pH ABG pO2 ABG HCO3 ABG O2 Saturation ABG Base Excess ABG Hemoglobin Oxyhemoglobin Sodium 120 L Potassium 5.1 H Chloride 90.0 L Carbon Dioxide 14 L BUN 26 H Creatinine 0.5 L Glucose Lactic Acid 3.30 H* Calcium 8.0 L Iron 9 L TIBC 97 L Ferritin AST 73 H ALT 91 H Lactate Dehydrogenase Troponin T C-Reactive Protein Total Protein 5.5 L Albumin 2.0 L Cholesterol LDL Cholesterol Direct HDL Cholesterol Urine WBC (Auto) 07/04/19 07/04/19 07/04/19 09:39 09:39 09:39 WBC RBC Hgb Hct MCV MCH RDW Plt Count Seg Neuts % (Manual) Lymphocytes % (Manual) Seg Neutrophils # Man Lymphocytes # (Manual) PT INR D-Dimer 1419.14 H ABG pH ABG pO2 ABG HCO3 ABG O2 Saturation ABG Base Excess ABG Hemoglobin Oxyhemoglobin Sodium Potassium Chloride Carbon Dioxide BUN Creatinine Glucose Lactic Acid Calcium Iron TIBC Ferritin 1719.0 H AST ALT Lactate Dehydrogenase 234 H Troponin T C-Reactive Protein 15.50 H Total Protein Albumin Cholesterol LDL Cholesterol Direct HDL Cholesterol Urine WBC (Auto) 07/04/19 07/04/19 07/04/19 Unknown Unknown Unknown WBC RBC Hgb Hct MCV MCH RDW Plt Count Seg Neuts % (Manual) Lymphocytes % (Manual) Seg Neutrophils # Man Lymphocytes # (Manual) PT INR D-Dimer 759.77 H ABG pH ABG pO2 ABG HCO3 ABG O2 Saturation ABG Base Excess ABG Hemoglobin Oxyhemoglobin Sodium Potassium Chloride Carbon Dioxide BUN Creatinine Glucose Lactic Acid Calcium Iron TIBC Ferritin 1301.0 H AST ALT Lactate Dehydrogenase 242 H Troponin T C-Reactive Protein 16.70 H Total Protein Albumin Cholesterol LDL Cholesterol Direct HDL Cholesterol Urine WBC (Auto)
[2019-07-04] MEDS: VANCOMYCIN 1,500 MG in SODIUM CHLORIDE 0.9% 500 ML 500 ML IV SCH (18:05)
[2019-07-04 18:35] LABS: BUN/Creatinine Ratio 56; Blood Urea Nitrogen 28 mg/dL (9-20); Calcium 8.2 mg/dL (8.4-10.2); Hemolysis Index 15
[2019-07-04] MEDS ORDERED: INSULIN REGULAR, HUMAN 100 UNITS/1 ML IV ONE (20:31)
[2019-07-04] MEDS ORDERED: DEXTROSE 50% IN WATER (25GM) 50 ML SYRINGE IV ONE (20:31)
[2019-07-04] MEDS ORDERED: SODIUM BICARB 8.4% 50 MEQ/50 ML SYRINGE IV ONE (20:32)
[2019-07-04] MEDS ORDERED: FUROSEMIDE 40 MG/4 ML INJ IV ONE (20:33)
--- NOTE | 2019-07-04 21:20 | Event Note ---
Date: 07/04/19 Consulted for Hyponatremia and Hyperkalemia. Patient admitted with Respiratory failure and shock. Creatinine level is normal. Discussed with primary RN. Insulin-D50, Kayexalate and Sodium bicarbonate ordered. Repeat BMP at 2300 today, to call me with results.
[2019-07-04] MEDS ORDERED: CALCIUM GLUCONATE 1,000 MG in SODIUM CHLORIDE 0.9% 100 ML IV ONE (21:48)
[2019-07-04] MEDS ORDERED: SODIUM POLYSTYRENE 15 GM/60 ML ORAL LIQD PO ONE (21:48)
[2019-07-04] MEDS ORDERED: SODIUM POLYSTYRENE 15 GM/60 ML ORAL LIQD ONE (22:36)
[2019-07-04] MEDS ORDERED: FAMOTIDINE 20 MG/2 ML INJ IV ONE (22:36)
[2019-07-05 00:20] LABS: BUN/Creatinine Ratio 54; Blood Urea Nitrogen 27 mg/dL (9-20); Calcium 8.3 mg/dL (8.4-10.2); Hemolysis Index 4
[2019-07-05] MEDS: NORepinephrine/NS 4 MG-250 ML 4 MG/250 ML BAG IV SCH ×3 (01:27→14:07)
[2019-07-05] MEDS ORDERED: LACTATED RINGERS 1,000 ML ONE ×3 (02:12→20:59)
[2019-07-05 03:48] LABS: ABG Base Excess -2.4 mmol/L (-2.0-3.0); ABG HCO3 21.7 mmol/L (20.0-26.0); ABG Methemoglobin 0.3 % (0.0-1.5); ABG Oxygen Saturation 93.5 % (95.0-99.0); ABG PCO2 33.7 mm Hg; ABG PH 7.426 pH Units (7.350-7.450); ABG PO2 60.6 mm Hg (80.0-90.0)
[2019-07-05] MEDS ORDERED: NORepinephrine/NS 4 MG-250 ML 4 MG/250 ML BAG IV ONE ×3 (04:50→20:59)
[2019-07-05] MEDS ORDERED: CEFEPIME/NS 2 GM/100 ML 2 GM/100 ML BAG IV ONE ×3 (05:12→20:59)
[2019-07-05] MEDS: VANCOMYCIN 1,500 MG in SODIUM CHLORIDE 0.9% 500 ML 500 ML IV SCH ×2 (06:15→20:13)
[2019-07-05] MEDS: CEFEPIME/NS 2 GM/100 ML 2 GM/100 ML BAG IV SCH ×3 (06:15→21:30)
--- NOTE | 2019-07-05 06:19 | XRay Report ---
CHEST 1 VIEW 07/05/2019 5:48 AM INDICATION / CLINICAL INFORMATION: follow up respiratory failure. COMPARISON: 07/04/19 FINDINGS: SUPPORT DEVICES: Stable, satisfactory device positioning. HEART / MEDIASTINUM: Stable. LUNGS / PLEURA: Extensive bilateral pulmonary opacities are unchanged. No pneumothorax. ADDITIONAL FINDINGS: No significant additional findings. IMPRESSION: 1. No significant change. Signer Name: Vida Patrick MD Signed: 07/05/2019 6:14 AM Workstation Name: [id number]
[2019-07-05] MEDS: INSULIN LISPRO 100 UNIT/ML SUB-Q SCH ×6 (07:52→22:04)
--- NOTE | 2019-07-05 09:10 | Consultation ---
History of Present Illness - Reason for Consult Consult date: 07/05/19 hyponatremia, hyperkalemia - History of Present Illness The patient is a 69 YO male with history significant for DM-2, HTN, CVA with RHP, COPD, Schizophrenia, Dementia, Alcohol use and Seizure D/O who presented to [facility] ED 07/02 via EMS from home with progressive SOB and impending espiratory failure with an unresponsive episode. At the time of my evalaution patient was intubated and there was no family member at the bedside. Apparently the patient was witnessed becoming unresponsive by family members. When EMS got there, the patient was agonal breathing and had a faint pulse. No CPR was indicated per EMS. Pt was intubated and received some IV fluid en route to the hospital. The pt was under [facility] and reportedly the patient is a DNR according to the family but they were unable to provide the appropriate paperwork and to explain why the pt was discharged from hospice. The patient is bed bound and has LE atrophy and contractures. He also has history of cervical spine fracture. In the ED, pt was found to have bilateral PNA on CXR and WBC was 30K. Labs also significant for Sodium 117 and K 5.6 with normal creatinine level. Nephrology was consulted for further evaluation. Past History Past Medical History: COPD, diabetes, hypertension, seizures Social history: full code. denies: smoking, alcohol abuse Family history: hypertension Medications and Allergies Allergies Allergy/AdvReac Type Severity Reaction Status Date / Time No Known Allergies Allergy Unverified 09/09/16 16:29 Home Medications Medication Instructions Recorded Confirmed Last Taken Type Acetaminophen [Tylenol] 500 mg PO TID 07/04/19 07/04/19 Unknown History Albuterol Sulfate [Proair 90 mcg IH TID 07/04/19 07/04/19 Unknown History Digihaler] Amlodipine Besylate [Norvasc] 2.5 mg PO QDAY 07/04/19 07/04/19 Unknown History Aspirin [Aspirin BABY CHEW TAB] 81 mg PO QDAY 07/04/19 07/04/19 Unknown History Atorvastatin Calcium [Lipitor] 80 mg PO QDAY 07/04/19 07/04/19 Unknown History Benztropine Mesylate 0.5 mg PO QDAY 07/04/19 07/04/19 Unknown History Budesonide/Formoterol Fumarate 10.2 gm IH BID 07/04/19 07/04/19 Unknown History [Budesonide-Formoterol 160-4.5] Divalproex ER [DepaKOTE ER] 1,000 mg PO QDAY 07/04/19 07/04/19 Unknown History Docusate Sodium [Colace] 100 mg PO QDAY 07/04/19 07/04/19 Unknown History Folic Acid [Folvite] 1 mg PO QDAY 07/04/19 07/04/19 Unknown History Hydrophilic Ointment [Dermafix] 113 gm TP QDAY 07/04/19 07/04/19 Unknown History Losartan [Cozaar] 100 mg PO QDAY 07/04/19 07/04/19 Unknown History Metformin HCl [Metformin HCl ER] 500 mg PO QDAY 07/04/19 07/04/19 Unknown History Metoprolol Tartrate 25 mg PO BID 07/04/19 07/04/19 Unknown History Multivit with Minerals/Ginseng 1 each PO QDAY 07/04/19 07/04/19 Unknown History [Super Ginseng Multivit Cap] Quetiapine Fumarate [SEROquel Xr] 400 mg PO QHS 07/04/19 07/04/19 Unknown History Sertraline HCl [Zoloft] 100 mg PO QDAY 07/04/19 07/04/19 Unknown History Sildenafil Citrate [Viagra] 100 mg PO QDAY PRN 07/04/19 07/04/19 Unknown History Tamsulosin [Flomax] 0.4 mg PO QDAY 07/04/19 07/04/19 Unknown History Active Meds: Active Medications Acetaminophen (Tylenol) 650 mg PO Q6H PRN PRN Reason: Pain MILD(1-3)/Fever >100.5/MURO Acetaminophen (Tylenol) 650 mg [place] Q6H PRN PRN Reason: Pain MILD(1-3)/Fever >100.5/MURO Lipase/Protease/Amylase (Pancreaze Dr 10,500 Unit) 1 each FEEDTUBE PRN PRN PRN Reason: For Clogged Feeding Tube Aspirin (Baby Aspirin) 81 mg PO QDAY [facility] Dextrose (D50w (25gm) Syringe) 50 ml IV Q30MIN PRN; Protocol PRN Reason: Hypoglycemia Divalproex Sodium (Depakote Er) 1,000 mg PO QDAY [facility] Famotidine (Pepcid) 20 mg IV BID [facility] Last Admin: 07/04/19 22:30 Dose: 20 mg Documented by: Folic Acid (Folvite) 1 mg PO QDAY [facility] Hydrophilic Ointment (Vaseline Lip Therapy) 1 applic TP Q2HR PRN PRN Reason: Dry Lips Norepinephrine (Levophed Drip 4 Mg/Ns 250 Ml) 4 mg in 250 mls @ 7.5 mls/hr IV TITR [facility]; Protocol Last Admin: 07/05/19 06:42 Dose: 15 mcg/min, 56.25 mls/hr Documented by: Lactated Ringer's (Lactated Ringers) 1,000 mls @ 125 mls/hr IV DIRECT [facility] Stop: 07/06/19 12:59 Cefepime HCl (Cefepime/Ns 2 Gm/100 Ml) 2 gm in 100 mls @ 200 mls/hr IV Q8HR [facility]; Protocol Last Admin: 07/05/19 06:15 Dose: 200 mls/hr Documented by: Vancomycin HCl 1,500 mg/ (Sodium Chloride) 530 mls @ 333.333 mls/hr IV Q12H [facility] Last Admin: 07/05/19 06:15 Dose: 333.333 mls/hr Documented by: Insulin Human Lispro (Humalog) 0 unit SUB-Q Q4HR [facility]; Protocol Last Admin: 07/05/19 07:53 Dose: Not Given Documented by: Morphine Sulfate (Morphine) 2 mg IV Q4H PRN PRN Reason: Pain, Moderate (4-6) Multi-Ingred Cream/Lotion/Oil/Oint (Artificial Tears Ophth Oint) 1 applic OU Q4HR PRN PRN Reason: Dry Eye(s) Naloxone HCl (Naloxone) 0.1 mg IV Q2MIN PRN PRN Reason: Res Rate </= 8 or 02 SAT < 92% Simple Syrup (Simple Syrup) 15 ml FEEDTUBE PRN PRN PRN Reason: Hypoglycemia Simple Syrup (Simple Syrup) 30 ml FEEDTUBE PRN PRN PRN Reason: Hypoglycemia Sodium Bicarbonate (Sodium Bicarbonate) 325 mg FEEDTUBE PRN PRN PRN Reason: For Clogged Feeding Tube Sodium Chloride (Sodium Chloride Flush Syringe 10 Ml) 10 ml IV BID [facility] Last Admin: 07/04/19 22:19 Dose: 10 ml Documented by: Sodium Chloride (Sodium Chloride Flush Syringe 10 Ml) 10 ml IV PRN PRN PRN Reason: LINE FLUSH Review of Systems ROS unobtainable: due to mental status Exam - Vital Signs Vital signs: Vital Signs Pulse Resp 93 H 23 07/03/19 19:28 07/03/19 19:28 - General Appearance General appearance: well-developed, appears stated age, sedated on ventilator, intubated, other (emaciated) EENT: ATNC, other (pupils equal) Neck: Present: trachea midline Respiratory: Clear to Ascultation Heart: regular, S1S2, no murmurs Gastrointestinal: Present: normoactive bowel sounds, other (PEG tube noted). Absent: tenderness Integumentary: ulcer (both feet) Neurologic: other (not responding) Musculoskeletal: Present: other (trace ankle edema) Results - Lab Results 07/05/19 10:11 07/05/19 04:00 Most recent lab results ABG pH 7.426 pH Units (7.350-7.450) 07/05/19 03:20 ABG pCO2 33.7 mm Hg 07/05/19 03:20 ABG pO2 60.6 mm Hg (80.0-90.0) L 07/05/19 03:20 ABG HCO3 21.7 mmol/L (20.0-26.0) 07/05/19 03:20 ABG O2 Saturation 93.5 % (95.0-99.0) L 07/05/19 03:20 Calcium 8.3 mg/dL (8.4-10.2) L 07/04/19 23:45 Assessment and Plan 1. Hypoantremia: The cause for hypoantremia is unclear. Suspect SIADH. With diuretics and IV Sodium bicarbonate Sodium level is gradually improving. Sodium bicarbonate through the PEG tube started. Monitor Sodium level. 2. FEN: Metabolic acidosis, improving on Sodium bicarbonate, monitor. Hyperkalemia, improved, monitor. Monitor volume status and lytes. 3. Acute hypoxic respiratory failure: Currently intubated and on vent. Pulmonary following. 4. Severe Sepsis, POA. Followed by ID. 5. Severe COVID-19 pneumonia. 6. Shock: Levophed. 7. Microcytic anemia, POA: Monitor. 8. Diabetes mellitus. 9. COPD. 10. Encephalopathy, POA: Metabolic.
[2019-07-05] MEDS ORDERED: DIVALPROEX ER 500 MG TAB PO SCH (10:00)
[2019-07-05 10:21] LABS: Hematocrit 21.9 % (35.5-45.6); Hemoglobin 7.2 gm/dl (11.8-15.2); Mean Corpuscular HGB Conc 33 % (32-34); Mean Corpuscular Volume 79 fl (84-94); Platelet Count 354 K/mm3 (140-440); Red Blood Count 2.77 M/mm3 (3.65-5.03)
[2019-07-05 10:36] LABS: BUN/Creatinine Ratio 40; Blood Urea Nitrogen 24 mg/dL (9-20); Calcium 8.2 mg/dL (8.4-10.2); Hemolysis Index 0; Uric Acid 7.2 mg/dL (3.5-7.6)
[2019-07-05] MEDS ORDERED: ASPIRIN 81 MG TAB CHEW ONE (10:43)
[2019-07-05] MEDS ORDERED: FOLIC ACID 1 MG TAB ONE (10:44)
[2019-07-05] MEDS ORDERED: FAMOTIDINE 20 MG/2 ML INJ IV ONE ×2 (10:44→23:13)
--- NOTE | 2019-07-05 11:01 | Progress Note ---
Assessment and Plan S/p Cardiopulmonary arrest with ROSC Severe Sepsis with septic shock. Acute hypoxemic respiratory failure on MVS COVID-19 positive Bilateral pneumonia Elevated LFTs. Oropharyngeal dysphagia s/p PEG Acute kidney injury Decubitus ulcers-unstageable Moderate protein calorie malnutriton [id number] metabolic acidosis Leukocytosis >40,000 Microcytic anemia - continue airborne, droplet and contact isolation for COVID-19 - continue wean Levophed for target MAP > 65 mmHg - continue empiric anti-infectives and de-escalate per ID recommendations - continue wound care per WCT - sedation prn for target RASS 0 to -1 - continue to wean supplemental oxygen for target O2 sat's > 90% - Daily SAT's and SBT assessment as tolerated - VAP bundle addressed - continue lung protective strategies - continue bronchodilators with pulmonary hygiene per RT - wean per pulmonary driven protocols otherwise - accuchecks with glycemic control per SSI (While critically ill target blood glucose of 140-180 mg/dL; avoid hypoglycemia) - contineu to avoid benzodiazepines, reduce the possibility of delirium - prn analgesia per CPOT score - Maintenance of sleep-wake cycle, avoid delirium - continue enteral nutritional support at goal rate as tolerated - Stress ulcer & VTE prophylaxis - PT/OT/ROM exercises - continue mobility protocol, off loading and skin assessment for pressure ulcer prevention - Monitor hemodynamics closely -Wright catheter in this critically ill patient requiring vasopressor support and with unstageable sacral decubitus ulcer -Has a femoral triple lumen catheter. Plan to discontinue the femoral CVC, place PICC line if he continues to require vasopressor support for another 24 hours. -PEG site care, appears to be leaking around the site - continue other care per attending / other consultants - discharge planning ongoing concurrently .... Re-evaluate in am & prn CONDITION: CRITICAL PROGNOSIS: GUARDED CODE STATUS: FULL CODE Called his family to discuss goals of care, unable to make contact with them He was apparently in hospice prior to this admission The high probability of a clinically significant, sudden or life-threatening deterioration of the [respiratory & cardiovascular] system(s) required my full and direct attention, intervention and personal management. The aggregate critical care time was [35] minutes without overlap. Time includes spent on; [x] Data Review and interpretation [x] Patient assessment and monitoring of vital signs [x] Documentation [x] Medication orders and management Subjective Date of service: 07/05/19 Interval history: The patient is a 69-year-old male with CVA, hypertension, dementia, schizophrenia, alcohol use disorder was admitted to the emergency room after being brought in by EMS with progressive shortness of breath and unresponsiveness. He was noted to have agonal breathing and a faint pulse requiring CPR. Patient was intubated and brought to the hospital. It seems, patient was on home hospice. Currently, remains critically ill, intubated, on mechanical ventilation. His COVID test resulted positive. Patient is seen today for: s/p cardiopulmonary arrest with ROSC;Ac hypoxemic Resp failure on MVS; Severe sepsis with Shock; Bilateral Pneumonia; PUI coronavirus-19 infection. Seen and examined at bedside; 24hour events reviewed; nursing and respiratory care staff consulted; no adverse overnight events reported to me; resting in bed; remains on MVS at PEEP 8 and FIO2 of 60%; AMS is persistent; no emesis or overt aspiration; on norepinephrine at 15mcg via a femoral catheter, On cefepime and Vancomycin Contracted. Patient seen and examined. Vitals, labs,medications, chart reviewed. PUI?: No COVID19: Positive Objective - Exam Narrative Exam: Vitals reviewed Constitutional: appears uncomfortable, other (eelderly and chronically ill looking AAM, normocephalic with mildly increased respiratory effort at rest) Eyes: non-icteric ENT: oropharynx moist, other (ETT 24 cm RUTH) Neck: supple, no lymphadenopathy, no JVD Effort: mildly labored Ascultation: Bilateral: diminished breath sounds, rhonchi Percussion: Bilateral: not dull Cardiovascular: regular rate and rhythm Gastrointestinal: normoactive bowel sounds, soft, non-tender, non-distended, other (+ PEG tube with mild TF leakage) Integumentary: decubitus ulcer Extremities: no cyanosis, no edema, pink and warm, pulses normal, Contracted lower extremities Neurologic: unable to assess Psychiatric: other (Unable to assess re: AMS) Vital Signs - 12hr 07/04/19 07/04/19 07/04/19 23:15 23:21 23:25 Temperature Pulse Rate 121 H 115 H 116 H Respiratory 23 27 H Rate Blood Pressure 120/70 120/70 107/56 O2 Sat by Pulse 95 96 95 Oximetry 07/04/19 07/04/19 07/04/19 23:30 23:31 23:44 Temperature 98.0 F Pulse Rate 119 H 119 H Respiratory 28 H 28 H Rate Blood Pressure 103/56 103/56 O2 Sat by Pulse 95 96 Oximetry 07/04/19 07/05/19 07/05/19 23:45 00:31 01:00 Temperature Pulse Rate 120 H 117 H 121 H Respiratory 29 H 25 H 27 H Rate Blood Pressure 103/56 126/70 125/65 O2 Sat by Pulse 97 97 99 Oximetry 07/05/19 07/05/19 07/05/19 01:30 02:00 02:30 Temperature Pulse Rate 117 H 116 H 115 H Respiratory 25 H 25 H 25 H Rate Blood Pressure 116/69 113/68 114/68 O2 Sat by Pulse 98 98 97 Oximetry 07/05/19 07/05/19 07/05/19 03:00 03:30 03:31 Temperature Pulse Rate 117 H 118 H 115 H Respiratory 25 H 25 H Rate Blood Pressure 113/63 110/67 113/63 O2 Sat by Pulse 95 97 97 Oximetry 07/05/19 07/05/19 07/05/19 04:00 04:15 04:45 Temperature 98.8 F Pulse Rate 119 H 118 H 118 H Respiratory 25 H 25 H 25 H Rate Blood Pressure 112/68 112/68 103/66 O2 Sat by Pulse 96 97 100 Oximetry 07/05/19 07/05/19 07/05/19 05:00 05:15 05:30 Temperature Pulse Rate 122 H 122 H 124 H Respiratory 27 H 23 27 H Rate Blood Pressure 114/63 114/63 121/63 O2 Sat by Pulse 100 100 100 Oximetry 07/05/19 07/05/19 07/05/19 06:00 06:31 07:00 Temperature Pulse Rate 131 H 131 H 127 H Respiratory 30 H 20 28 H Rate Blood Pressure 130/70 140/73 145/69 O2 Sat by Pulse 99 100 99 Oximetry 07/05/19 07/05/19 07:30 09:00 Temperature Pulse Rate 131 H 124 H Respiratory 30 H Rate Blood Pressure 139/66 117/67 O2 Sat by Pulse 96 99 Oximetry CBC and BMP: 07/09/19 04:30 07/09/19 04:30 ABG, PT/INR, D-dimer: ABG ABG pH 7.426 pH Units (7.350-7.450) 07/05/19 03:20 ABG pCO2 33.7 mm Hg 07/05/19 03:20 ABG pO2 60.6 mm Hg (80.0-90.0) L 07/05/19 03:20 ABG O2 Saturation 93.5 % (95.0-99.0) L 07/05/19 03:20 PT/INR, D-dimer PT 16.0 Sec. (12.2-14.9) H 07/03/19 22:20 INR 1.26 (0.87-1.13) H 07/03/19 22:20 D-Dimer 759.77 ng/mlDDU (0-234) H 07/04/19 Unknown Abnormal lab findings: Abnormal Labs 07/03/19 07/03/19 07/03/19 19:57 21:10 21:13 WBC RBC Hgb Hct MCV MCH RDW Plt Count Seg Neuts % (Manual) Lymphocytes % (Manual) Seg Neutrophils # Man Lymphocytes # (Manual) PT INR D-Dimer ABG pH 7.238 L ABG pO2 210.8 H ABG HCO3 15.4 L ABG O2 Saturation 99.2 H ABG Base Excess -11.1 L ABG Hemoglobin 8.0 L Oxyhemoglobin Sodium 124 L Potassium Chloride 92.9 L Carbon Dioxide 10 L BUN 23 H Creatinine 0.5 L Glucose 118 H POC Glucose Lactic Acid Calcium 7.0 L Magnesium Iron TIBC Ferritin AST 70 H ALT 88 H Lactate Dehydrogenase Troponin T 0.032 H C-Reactive Protein Total Protein 5.0 L Albumin 1.8 L Cholesterol 47 L LDL Cholesterol Direct 25 L HDL Cholesterol 20 L Urine WBC (Auto) 12.0 H Coronavirus (PCR) 07/03/19 07/03/19 07/03/19 22:20 22:20 22:20 WBC 30.5 H RBC 2.96 L Hgb 7.7 L Hct 23.9 L MCV 81 L MCH 26 L RDW 18.6 H Plt Count 459 H Seg Neuts % (Manual) 93.0 H Lymphocytes % (Manual) 0.5 L Seg Neutrophils # Man 28.4 H Lymphocytes # (Manual) 0.2 L PT 16.0 H INR 1.26 H D-Dimer ABG pH ABG pO2 ABG HCO3 ABG O2 Saturation ABG Base Excess ABG Hemoglobin Oxyhemoglobin Sodium Potassium Chloride Carbon Dioxide BUN Creatinine Glucose POC Glucose Lactic Acid 6.90 H* Calcium Magnesium Iron TIBC Ferritin AST ALT Lactate Dehydrogenase Troponin T C-Reactive Protein Total Protein Albumin Cholesterol LDL Cholesterol Direct HDL Cholesterol Urine WBC (Auto) Coronavirus (PCR) 07/03/19 07/04/19 07/04/19 23:58 05:15 07:05 WBC 17.1 H RBC 3.22 L Hgb 8.3 L Hct 25.4 L MCV 79 L MCH 26 L RDW 18.6 H Plt Count Seg Neuts % (Manual) 74.0 H Lymphocytes % (Manual) 0 L Seg Neutrophils # Man 12.7 H Lymphocytes # (Manual) 0.0 L PT INR D-Dimer ABG pH 7.310 L ABG pO2 73.2 L ABG HCO3 17.8 L ABG O2 Saturation 93.8 L ABG Base Excess -7.7 L ABG Hemoglobin 9.6 L Oxyhemoglobin 92.3 L Sodium Potassium Chloride Carbon Dioxide BUN Creatinine Glucose POC Glucose Lactic Acid 7.10 H* Calcium Magnesium Iron TIBC Ferritin AST ALT Lactate Dehydrogenase Troponin T C-Reactive Protein Total Protein Albumin Cholesterol LDL Cholesterol Direct HDL Cholesterol Urine WBC (Auto) Coronavirus (PCR) 07/04/19 07/04/19 07/04/19 07:05 07:05 07:05 WBC RBC Hgb Hct MCV MCH RDW Plt Count Seg Neuts % (Manual) Lymphocytes % (Manual) Seg Neutrophils # Man Lymphocytes # (Manual) PT INR D-Dimer ABG pH ABG pO2 ABG HCO3 ABG O2 Saturation ABG Base Excess ABG Hemoglobin Oxyhemoglobin Sodium 120 L Potassium 5.1 H Chloride 90.0 L Carbon Dioxide 14 L BUN 26 H Creatinine 0.5 L Glucose POC Glucose Lactic Acid 3.30 H* Calcium 8.0 L Magnesium Iron 9 L TIBC 97 L Ferritin AST 73 H ALT 91 H Lactate Dehydrogenase Troponin T C-Reactive Protein Total Protein 5.5 L Albumin 2.0 L Cholesterol LDL Cholesterol Direct HDL Cholesterol Urine WBC (Auto) Coronavirus (PCR) 07/04/19 07/04/19 07/04/19 09:39 09:39 09:39 WBC RBC Hgb Hct MCV MCH RDW Plt Count Seg Neuts % (Manual) Lymphocytes % (Manual) Seg Neutrophils # Man Lymphocytes # (Manual) PT INR D-Dimer 1419.14 H ABG pH ABG pO2 ABG HCO3 ABG O2 Saturation ABG Base Excess ABG Hemoglobin Oxyhemoglobin Sodium Potassium Chloride Carbon Dioxide BUN Creatinine Glucose POC Glucose Lactic Acid Calcium Magnesium Iron TIBC Ferritin 1719.0 H AST ALT Lactate Dehydrogenase 234 H Troponin T C-Reactive Protein 15.50 H Total Protein Albumin Cholesterol LDL Cholesterol Direct HDL Cholesterol Urine WBC (Auto) Coronavirus (PCR) 07/04/19 07/04/19 07/04/19 10:09 18:08 18:28 WBC RBC Hgb Hct MCV MCH RDW Plt Count Seg Neuts % (Manual) Lymphocytes % (Manual) Seg Neutrophils # Man Lymphocytes # (Manual) PT INR D-Dimer ABG pH ABG pO2 ABG HCO3 ABG O2 Saturation ABG Base Excess ABG Hemoglobin Oxyhemoglobin Sodium 117 L* Potassium 5.6 H Chloride 90.3 L Carbon Dioxide 16 L BUN 28 H Creatinine 0.5 L Glucose 58 L POC Glucose 65 L Lactic Acid Calcium 8.2 L Magnesium Iron TIBC Ferritin AST ALT Lactate Dehydrogenase Troponin T C-Reactive Protein Total Protein Albumin Cholesterol LDL Cholesterol Direct HDL Cholesterol Urine WBC (Auto) Coronavirus (PCR) Positive A 07/04/19 07/04/19 07/04/19 23:45 Unknown Unknown WBC RBC Hgb Hct MCV MCH RDW Plt Count Seg Neuts % (Manual) Lymphocytes % (Manual) Seg Neutrophils # Man Lymphocytes # (Manual) PT INR D-Dimer 759.77 H ABG pH ABG pO2 ABG HCO3 ABG O2 Saturation ABG Base Excess ABG Hemoglobin Oxyhemoglobin Sodium 122 L Potassium Chloride 93.0 L Carbon Dioxide 19 L BUN 27 H Creatinine 0.5 L Glucose POC Glucose Lactic Acid Calcium 8.3 L Magnesium Iron TIBC Ferritin 1301.0 H AST ALT Lactate Dehydrogenase Troponin T C-Reactive Protein Total Protein Albumin Cholesterol LDL Cholesterol Direct HDL Cholesterol Urine WBC (Auto) Coronavirus (PCR) 07/04/19 07/05/19 07/05/19 Unknown 03:20 04:00 WBC RBC Hgb Hct MCV MCH RDW Plt Count Seg Neuts % (Manual) Lymphocytes % (Manual) Seg Neutrophils # Man Lymphocytes # (Manual) PT INR D-Dimer ABG pH ABG pO2 60.6 L ABG HCO3 ABG O2 Saturation 93.5 L ABG Base Excess -2.4 L ABG Hemoglobin 6.9 L Oxyhemoglobin 92.0 L Sodium 125 L Potassium Chloride 92.6 L Carbon Dioxide 19 L BUN 24 H Creatinine 0.6 L Glucose POC Glucose Lactic Acid Calcium 8.2 L Magnesium 1.40 L Iron TIBC Ferritin AST ALT Lactate Dehydrogenase 242 H Troponin T C-Reactive Protein 16.70 H Total Protein Albumin Cholesterol LDL Cholesterol Direct HDL Cholesterol Urine WBC (Auto) Coronavirus (PCR) 07/05/19 10:11 WBC 46.4 H* RBC 2.77 L Hgb 7.2 L Hct 21.9 L MCV 79 L MCH 26 L RDW 19.0 H Plt Count Seg Neuts % (Manual) Lymphocytes % (Manual) Seg Neutrophils # Man Lymphocytes # (Manual) PT INR D-Dimer ABG pH ABG pO2 ABG HCO3 ABG O2 Saturation ABG Base Excess ABG Hemoglobin Oxyhemoglobin Sodium Potassium Chloride Carbon Dioxide BUN Creatinine Glucose POC Glucose Lactic Acid Calcium Magnesium Iron TIBC Ferritin AST ALT Lactate Dehydrogenase Troponin T C-Reactive Protein Total Protein Albumin Cholesterol LDL Cholesterol Direct HDL Cholesterol Urine WBC (Auto) Coronavirus (PCR) Chest x-ray: image reviewed (ETT in position, mulifocal alveolar infiltrates) Allied health notes reviewed: RT
[2019-07-05] MEDS ORDERED: HYDROXYCHLOROQUINE 200 MG TAB ONE ×2 (11:29→22:12)
[2019-07-05] MEDS: levETIRAcetam 750 MG in DEXTROSE 5% IN WATER 100 ML IV SCH ×2 (12:00→23:40)
[2019-07-05] MEDS: ASPIRIN 81 MG TAB CHEW PO SCH (12:00)
[2019-07-05] MEDS: FOLIC ACID 1 MG TAB PO SCH (12:00)
[2019-07-05] MEDS: FAMOTIDINE 20 MG/2 ML INJ IV SCH ×2 (12:00→23:40)
[2019-07-05] MEDS: HYDROXYCHLOROQUINE 200 MG TAB PO SCH ×2 (12:00→23:41)
--- NOTE | 2019-07-05 12:41 | Consultation ---
History of Present Illness - Reason for Consult Consult date: 07/05/19 COVID-19, bilateral pneumonia Requesting physician: CATALINA SOSA PUI?: No COVID19: Positive - History of Present Illness The patient is a 69-year-old male with CVA, hypertension, dementia, schizophrenia, alcohol use disorder was admitted to the emergency room after being brought in by EMS with progressive shortness of breath and un responsiveness. He was noted to have agonal breathing and a faint pulse requiring CPR. Patient was intubated and brought to the hospital. It seems, patient was on home hospice. Currently, remains critically ill, intubated, on mechanical ventilation. His COVID test resulted positive. Infectious diseases was consulted for additional evaluation. Review of Systems: reviewed in the chart, unable to obtain directly due to PPE shortage and preservation Past History Past Medical History: COPD, diabetes, hypertension, seizures Social history: full code. denies: smoking, alcohol abuse Family history: hypertension Medications and Allergies Allergies Allergy/AdvReac Type Severity Reaction Status Date / Time No Known Allergies Allergy Unverified 09/09/16 16:29 Home Medications Medication Instructions Recorded Confirmed Last Taken Type Acetaminophen [Tylenol] 500 mg PO TID 07/04/19 07/04/19 Unknown History Albuterol Sulfate [Proair 90 mcg IH TID 07/04/19 07/04/19 Unknown History Digihaler] Amlodipine Besylate [Norvasc] 2.5 mg PO QDAY 07/04/19 07/04/19 Unknown History Aspirin [Aspirin BABY CHEW TAB] 81 mg PO QDAY 07/04/19 07/04/19 Unknown History Atorvastatin Calcium [Lipitor] 80 mg PO QDAY 07/04/19 07/04/19 Unknown History Benztropine Mesylate 0.5 mg PO QDAY 07/04/19 07/04/19 Unknown History Budesonide/Formoterol Fumarate 10.2 gm IH BID 07/04/19 07/04/19 Unknown History [Budesonide-Formoterol 160-4.5] Divalproex ER [DepaKOTE ER] 1,000 mg PO QDAY 07/04/19 07/04/19 Unknown History Docusate Sodium [Colace] 100 mg PO QDAY 07/04/19 07/04/19 Unknown History Folic Acid [Folvite] 1 mg PO QDAY 07/04/19 07/04/19 Unknown History Hydrophilic Ointment [Dermafix] 113 gm TP QDAY 07/04/19 07/04/19 Unknown History Losartan [Cozaar] 100 mg PO QDAY 07/04/19 07/04/19 Unknown History Metformin HCl [Metformin HCl ER] 500 mg PO QDAY 07/04/19 07/04/19 Unknown History Metoprolol Tartrate 25 mg PO BID 07/04/19 07/04/19 Unknown History Multivit with Minerals/Ginseng 1 each PO QDAY 07/04/19 07/04/19 Unknown History [Super Ginseng Multivit Cap] Quetiapine Fumarate [SEROquel Xr] 400 mg PO QHS 07/04/19 07/04/19 Unknown History Sertraline HCl [Zoloft] 100 mg PO QDAY 07/04/19 07/04/19 Unknown History Sildenafil Citrate [Viagra] 100 mg PO QDAY PRN 07/04/19 07/04/19 Unknown History Tamsulosin [Flomax] 0.4 mg PO QDAY 07/04/19 07/04/19 Unknown History Active Meds: Active Medications Acetaminophen (Tylenol) 650 mg PO Q6H PRN PRN Reason: Pain MILD(1-3)/Fever >100.5/MURO Acetaminophen (Tylenol) 650 mg FL Q6H PRN PRN Reason: Pain MILD(1-3)/Fever >100.5/MURO Lipase/Protease/Amylase (Mor Gilbert 10,500 Unit) 1 each FEEDTUBE PRN PRN PRN Reason: For Clogged Feeding Tube Aspirin (Baby Aspirin) 81 mg PO QDAY [facility] Dextrose (D50w (25gm) Syringe) 50 ml IV Q30MIN PRN; Protocol PRN Reason: Hypoglycemia Famotidine (Pepcid) 20 mg IV BID [facility] Last Admin: 07/04/19 22:30 Dose: 20 mg Documented by: Folic Acid (Folvite) 1 mg PO QDAY [facility] Hydrophilic Ointment (Vaseline Lip Therapy) 1 applic TP Q2HR PRN PRN Reason: Dry Lips Hydroxychloroquine Sulfate (Plaquenil) 400 mg PO BID [facility] Stop: 07/05/19 23:59 Hydroxychloroquine Sulfate (Plaquenil) 200 mg PO BID [facility] Stop: 04/20/20 23:59 Norepinephrine (Levophed Drip 4 Mg/Ns 250 Ml) 4 mg in 250 mls @ 7.5 mls/hr IV TITR [facility]; Protocol Last Titration: 07/05/19 08:00 Dose: 5 mcg/min, 18.75 mls/hr Documented by: Lactated Ringer's (Lactated Ringers) 1,000 mls @ 125 mls/hr IV DIRECT TAMMIE Stop: 07/06/19 12:59 Cefepime HCl (Cefepime/Ns 2 Gm/100 Ml) 2 gm in 100 mls @ 200 mls/hr IV Q8HR [facility]; Protocol Last Admin: 07/05/19 06:15 Dose: 200 mls/hr Documented by: Vancomycin HCl 1,500 mg/ (Sodium Chloride) 530 mls @ 333.333 mls/hr IV Q12H [facility] Last Admin: 07/05/19 06:15 Dose: 333.333 mls/hr Documented by: Levetiracetam 750 mg/ Dextrose 107.5 mls @ 400 mls/hr IV Q12HR [facility] Insulin Human Lispro (Humalog) 0 unit SUB-Q Q4HR [facility]; Protocol Last Admin: 07/05/19 11:22 Dose: Not Given Documented by: Morphine Sulfate (Morphine) 2 mg IV Q4H PRN PRN Reason: Pain, Moderate (4-6) Multi-Ingred Cream/Lotion/Oil/Oint (Artificial Tears Ophth Oint) 1 applic OU Q4HR PRN PRN Reason: Dry Eye(s) Naloxone HCl (Naloxone) 0.1 mg IV Q2MIN PRN PRN Reason: Res Rate </= 8 or 02 SAT < 92% Simple Syrup (Simple Syrup) 15 ml FEEDTUBE PRN PRN PRN Reason: Hypoglycemia Simple Syrup (Simple Syrup) 30 ml FEEDTUBE PRN PRN PRN Reason: Hypoglycemia Sodium Bicarbonate (Sodium Bicarbonate) 325 mg FEEDTUBE PRN PRN PRN Reason: For Clogged Feeding Tube Sodium Chloride (Sodium Chloride Flush Syringe 10 Ml) 10 ml IV BID [facility] Last Admin: 07/05/19 11:23 Dose: 10 ml Documented by: Sodium Chloride (Sodium Chloride Flush Syringe 10 Ml) 10 ml IV PRN PRN PRN Reason: LINE FLUSH Physical Examination - Physical Exam Narrative exam: Physical Exam (reviewed in chart due to PPE conservation) Constitutional: intubated, sedated, on the vent Head, Ears, Nose: normocephalic, atraumatic Eyes: limited due to PPE conservation strategy Neck: intubated Oral: intubated Cardiovascular: limited due to PPE conservation strategy Respiratory: limited due to PPE conservation strategy GI: limited due to PPE conservation strategy Musculoskeletal: limited due to PPE conservation strategy Skin: limited due to PPE conservation strategy Hem/Lymphatic: limited due to PPE conservation strategy Psych: no agitation Neurological: sedated, intubated, on the vent, exam limited - Constitutional Vitals: Vital Signs Temp Pulse Resp BP Pulse Ox 98.8 F 128 H 25 H 105/59 96 07/05/19 04:00 07/05/19 11:54 07/05/19 11:30 07/05/19 11:54 07/05/19 11:54 Temperature -Last 24 Hours Temperature 98.8 F Temperature 98.0 F Results - Labs CBC & Chem 7: 07/05/19 10:11 07/05/19 04:00 Labs: Abnormal lab results 07/04/19 07/04/19 07/04/19 Range/Units 10:09 18:08 18:28 WBC (4.5-11.0) K/mm3 RBC (3.65-5.03) M/mm3 Hgb (11.8-15.2) gm/dl Hct (35.5-45.6) % MCV (84-94) fl MCH (28-32) pg RDW (13.2-15.2) % ABG pO2 (80.0-90.0) mm Hg ABG O2 Saturation (95.0-99.0) % ABG Base Excess (-2.0-3.0) mmol/L ABG Hemoglobin (14.0-18.0) gm/dl Oxyhemoglobin (95.0-99.0) % Sodium 117 L* (137-145) mmol/L Potassium 5.6 H (3.6-5.0) mmol/L Chloride 90.3 L (98-107) mmol/L Carbon Dioxide 16 L (22-30) mmol/L BUN 28 H (9-20) mg/dL Creatinine 0.5 L (0.8-1.5) mg/dL Glucose 58 L (75-100) mg/dL POC Glucose 65 L (70-105) Calcium 8.2 L (8.4-10.2) mg/dL Magnesium (1.7-2.3) mg/dL Coronavirus (PCR) Positive A (Negative) 07/04/19 07/05/19 07/05/19 Range/Units 23:45 03:20 04:00 WBC (4.5-11.0) K/mm3 RBC (3.65-5.03) M/mm3 Hgb (11.8-15.2) gm/dl Hct (35.5-45.6) % MCV (84-94) fl MCH (28-32) pg RDW (13.2-15.2) % ABG pO2 60.6 L (80.0-90.0) mm Hg ABG O2 Saturation 93.5 L (95.0-99.0) % ABG Base Excess -2.4 L (-2.0-3.0) mmol/L ABG Hemoglobin 6.9 L (14.0-18.0) gm/dl Oxyhemoglobin 92.0 L (95.0-99.0) % Sodium 122 L 125 L (137-145) mmol/L Potassium (3.6-5.0) mmol/L Chloride 93.0 L 92.6 L (98-107) mmol/L Carbon Dioxide 19 L 19 L (22-30) mmol/L BUN 27 H 24 H (9-20) mg/dL Creatinine 0.5 L 0.6 L (0.8-1.5) mg/dL Glucose (75-100) mg/dL POC Glucose (70-105) Calcium 8.3 L 8.2 L (8.4-10.2) mg/dL Magnesium 1.40 L (1.7-2.3) mg/dL Coronavirus (PCR) (Negative) 07/05/19 Range/Units 10:11 WBC 46.4 H* (4.5-11.0) K/mm3 RBC 2.77 L (3.65-5.03) M/mm3 Hgb 7.2 L (11.8-15.2) gm/dl Hct 21.9 L (35.5-45.6) % MCV 79 L (84-94) fl MCH 26 L (28-32) pg RDW 19.0 H (13.2-15.2) % ABG pO2 (80.0-90.0) mm Hg ABG O2 Saturation (95.0-99.0) % ABG Base Excess (-2.0-3.0) mmol/L ABG Hemoglobin (14.0-18.0) gm/dl Oxyhemoglobin (95.0-99.0) % Sodium (137-145) mmol/L Potassium (3.6-5.0) mmol/L Chloride (98-107) mmol/L Carbon Dioxide (22-30) mmol/L BUN (9-20) mg/dL Creatinine (0.8-1.5) mg/dL Glucose (75-100) mg/dL POC Glucose (70-105) Calcium (8.4-10.2) mg/dL Magnesium (1.7-2.3) mg/dL Coronavirus (PCR) (Negative) - Imaging and Cardiology Chest x-ray: report reviewed, image reviewed (b/l pneumonia) Assessment and Plan Cultures: 07/03/2019 urine culture: No growth A/P: 69-year-old male with CVA, hypertension, dementia, schizophrenia, alcohol use disorder was admitted to the emergency room after being brought in by EMS with progressive shortness of breath and unresponsiveness. He was noted to have agonal breathing and a faint pulse requiring CPR. It seems patient was on h ospice recently. #Shock, likely septic: Lactic acidosis #Severe COVID-19 disease and pneumonia: Elevated markers #Acute respiratory failure #Transaminitis: Likely from COVID-19, shock Recs: Continue Plaquenil into 5 days Continue empiric cefepime, vancomycin Prognosis is extremely poor Yanna Calzada MD, FACP [facility] C: [phone] O: [phone] F: [phone]
[2019-07-05] MEDS ORDERED: SODIUM BICARB 8.4% 50 MEQ/50 ML SYRINGE IV ONE ×2 (12:55→14:41)
[2019-07-05] MEDS ORDERED: MAGNESIUM SULFATE 2 GM/50 ML BAG IV ONE ×2 (12:58→14:39)
[2019-07-05 13:02] LABS: Anisocytosis 1+; Band Neutrophils # (Manual) 6.5 K/mm3; Basophils % (Manual) 0 % (0.0-1.8); Eosinophils % (Manual) 0 % (0.0-4.3); Hypochromasia 1+; Monocytes % (Manual) 0 % (0.0-7.3); Poikilocytosis 1+; Total Cells Counted 100
[2019-07-05 13:03] LABS: Burr Cells 1+; Ovalocytes Few; Tear Drop Cells Rare
[2019-07-05 13:04] LABS: Platelet Estimate Consistent w Auto; Toxic Granulation 2+
[2019-07-05] MEDS: LACTATED RINGERS 1,000 ML IV SCH ×2 (13:20→22:02)
--- NOTE | 2019-07-05 13:43 | Progress Note ---
Assessment and Plan COVid positive- Acute respiratory Failure with Hypoxia - Due to bilateral PNA with COVID 19 infection. -pulmonary critical care following -Continue scheduled labs, antibiotics, mechanical ventilation, supportive care as needed Bilateral PNA with severe sepsis - see above -ID following, started on Plaquenil -Also continue vancomycin and cefepime -Ordered for T-tube culture Acute metabolic encephalopathy -Likely due to respiratory arrest and severe sepsis - Hold Hyoscamine. monitor Troponins. -CT head unremarkable Shock, likely septic: Lactic acidosis -Levophed as needed, continue IV fluid COPD with exacerbation -Likely due to COVID-19 pneumonia -Continue IV antibiotics, Plaquenil, scheduled nebs Anemia, Microcytic - check iron, TIBC - monitor H&H Pressure Ulcers - buttocks, right lateral foot area - present upon admission - wound care consult Hyponatremia, continue IV fluid DM type 2 - Accuchecks with sliding scale insulin HTN Essential, now hypotensive -relatively low BP - on IVF. monitor Seizure D/o/CVA/immobility/BIpolar D/o/SCZ chronic medical conditions - continue meds Probable DNR- family to bring paperwork or make a clear decision about code status. To remain FUll code for now. Called today but unable to reach out to her Guarded prognosis, patient is critically ill The high probability of a clinically significant, sudden or life threatening deterioration of the [respiratory, CVS, [employer] [facility]] system(s) required my full and direct attention, intervention and personal management. The aggregate critical care time was [32] minutes. This time is in addition to time spent performing reported procedures but includes the following: [x] Data Review and interpretation [x] Patient assessment and monitoring of vital signs [x] Documentation [x] Medication orders and management Subjective Date of service: 07/05/19 Principal diagnosis: Bilateral pneumonia, severe sepsis with septic shock, encephalopathy Interval history: Patient seen and examined. Medical records and medication list reviewed. No acute event overnight noted by the RN. Patient is positive for COVID-19. Call patient's but unable to reach out to her Discussed plan of care at bedside with patient's RN. PUI?: No COVID19: Positive Objective - Exam Narrative Exam: General appearance: sedated on ventilator, intubated, other (emaciated) EENT: ATNC, other (pupils equal) Neck: Present: trachea midline Respiratory: Clear to Ascultation Heart: regular, S1S2, no murmurs Gastrointestinal: Present: normoactive bowel sounds, other (PEG tube noted). Ab sent: tenderness Integumentary: ulcer (both feet) Neurologic: other (not responding) Musculoskeletal: Present: other (trace ankle edema) - Constitutional Vitals: Vital Signs - 12hr 07/05/19 07/05/19 07/05/19 02:00 02:30 03:00 Temperature Pulse Rate 116 H 115 H 117 H Respiratory 25 H 25 H 25 H Rate Blood Pressure 113/68 114/68 113/63 O2 Sat by Pulse 98 97 95 Oximetry 07/05/19 07/05/19 07/05/19 03:30 03:31 04:00 Temperature 98.8 F Pulse Rate 118 H 115 H 119 H Respiratory 25 H 25 H Rate Blood Pressure 110/67 113/63 112/68 O2 Sat by Pulse 97 97 96 Oximetry 07/05/19 07/05/19 07/05/19 04:15 04:45 05:00 Temperature Pulse Rate 118 H 118 H 122 H Respiratory 25 H 25 H 27 H Rate Blood Pressure 112/68 103/66 114/63 O2 Sat by Pulse 97 100 100 Oximetry 07/05/19 07/05/19 07/05/19 05:15 05:30 06:00 Temperature Pulse Rate 122 H 124 H 131 H Respiratory 23 27 H 30 H Rate Blood Pressure 114/63 121/63 130/70 O2 Sat by Pulse 100 100 99 Oximetry 07/05/19 07/05/19 07/05/19 06:31 07:00 07:30 Temperature Pulse Rate 131 H 127 H 131 H Respiratory 20 28 H 30 H Rate Blood Pressure 140/73 145/69 139/66 O2 Sat by Pulse 100 99 96 Oximetry 07/05/19 07/05/19 07/05/19 08:00 08:30 09:00 Temperature Pulse Rate 128 H 128 H 128 H Respiratory 26 H 32 H 21 Rate Blood Pressure 122/62 123/67 117/67 O2 Sat by Pulse 97 97 98 Oximetry 07/05/19 07/05/19 07/05/19 09:30 10:00 10:30 Temperature Pulse Rate 129 H 129 H 126 H Respiratory 27 H 24 28 H Rate Blood Pressure 119/69 113/78 109/64 O2 Sat by Pulse 98 98 98 Oximetry 07/05/19 07/05/19 07/05/19 11:00 11:30 11:54 Temperature Pulse Rate 125 H 125 H 128 H Respiratory 26 H 25 H Rate Blood Pressure 109/64 105/59 105/59 O2 Sat by Pulse 97 96 96 Oximetry 07/05/19 07/05/19 07/05/19 12:00 12:30 13:00 Temperature Pulse Rate 127 H 125 H 126 H Respiratory 26 H 26 H 21 Rate Blood Pressure 109/62 100/65 99/66 O2 Sat by Pulse 96 97 97 Oximetry - Labs CBC & Chem 7: 07/06/19 03:49 07/06/19 03:49 Labs: Abnormal lab results 07/04/19 07/04/19 07/04/19 Range/Units 10:09 18:08 18:28 WBC (4.5-11.0) K/mm3 RBC (3.65-5.03) M/mm3 Hgb (11.8-15.2) gm/dl Hct (35.5-45.6) % MCV (84-94) fl MCH (28-32) pg RDW (13.2-15.2) % Seg Neuts % (Manual) (40.0-70.0) % Lymphocytes % (Manual) (13.4-35.0) % Seg Neutrophils # Man (1.8-7.7) K/mm3 Lymphocytes # (Manual) (1.2-5.4) K/mm3 ABG pO2 (80.0-90.0) mm Hg ABG O2 Saturation (95.0-99.0) % ABG Base Excess (-2.0-3.0) mmol/L ABG Hemoglobin (14.0-18.0) gm/dl Oxyhemoglobin (95.0-99.0) % Sodium 117 L* (137-145) mmol/L Potassium 5.6 H (3.6-5.0) mmol/L Chloride 90.3 L (98-107) mmol/L Carbon Dioxide 16 L (22-30) mmol/L BUN 28 H (9-20) mg/dL Creatinine 0.5 L (0.8-1.5) mg/dL Glucose 58 L (75-100) mg/dL POC Glucose 65 L (70-105) Calcium 8.2 L (8.4-10.2) mg/dL Magnesium (1.7-2.3) mg/dL Coronavirus (PCR) Positive A (Negative) 07/04/19 07/05/19 07/05/19 Range/Units 23:45 03:20 04:00 WBC (4.5-11.0) K/mm3 RBC (3.65-5.03) M/mm3 Hgb (11.8-15.2) gm/dl Hct (35.5-45.6) % MCV (84-94) fl MCH (28-32) pg RDW (13.2-15.2) % Seg Neuts % (Manual) (40.0-70.0) % Lymphocytes % (Manual) (13.4-35.0) % Seg Neutrophils # Man (1.8-7.7) K/mm3 Lymphocytes # (Manual) (1.2-5.4) K/mm3 ABG pO2 60.6 L (80.0-90.0) mm Hg ABG O2 Saturation 93.5 L (95.0-99.0) % ABG Base Excess -2.4 L (-2.0-3.0) mmol/L ABG Hemoglobin 6.9 L (14.0-18.0) gm/dl Oxyhemoglobin 92.0 L (95.0-99.0) % Sodium 122 L 125 L (137-145) mmol/L Potassium (3.6-5.0) mmol/L Chloride 93.0 L 92.6 L (98-107) mmol/L Carbon Dioxide 19 L 19 L (22-30) mmol/L BUN 27 H 24 H (9-20) mg/dL Creatinine 0.5 L 0.6 L (0.8-1.5) mg/dL Glucose (75-100) mg/dL POC Glucose (70-105) Calcium 8.3 L 8.2 L (8.4-10.2) mg/dL Magnesium 1.40 L (1.7-2.3) mg/dL Coronavirus (PCR) (Negative) 07/05/19 Range/Units 10:11 WBC 46.4 H* (4.5-11.0) K/mm3 RBC 2.77 L (3.65-5.03) M/mm3 Hgb 7.2 L (11.8-15.2) gm/dl Hct 21.9 L (35.5-45.6) % MCV 79 L (84-94) fl MCH 26 L (28-32) pg RDW 19.0 H (13.2-15.2) % Seg Neuts % (Manual) 82.0 H (40.0-70.0) % Lymphocytes % (Manual) 1.0 L (13.4-35.0) % Seg Neutrophils # Man 38.0 H (1.8-7.7) K/mm3 Lymphocytes # (Manual) 0.5 L (1.2-5.4) K/mm3 ABG pO2 (80.0-90.0) mm Hg ABG O2 Saturation (95.0-99.0) % ABG Base Excess (-2.0-3.0) mmol/L ABG Hemoglobin (14.0-18.0) gm/dl Oxyhemoglobin (95.0-99.0) % Sodium (137-145) mmol/L Potassium (3.6-5.0) mmol/L Chloride (98-107) mmol/L Carbon Dioxide (22-30) mmol/L BUN (9-20) mg/dL Creatinine (0.8-1.5) mg/dL Glucose (75-100) mg/dL POC Glucose (70-105) Calcium (8.4-10.2) mg/dL Magnesium (1.7-2.3) mg/dL Coronavirus (PCR) (Negative)
[2019-07-05] MEDS ORDERED: cefTRIAXone/NS 2 GM/100 ML 2 GM/100 ML BAG IV ONE (14:39)
[2019-07-05] MEDS: SODIUM BICARBONATE 650 MG TAB PO SCH ×2 (17:42→21:30)
[2019-07-05] MEDS: SIMPLE SYRUP 15 ML FEEDTUBE PRN (17:42)
[2019-07-06 01:07] LABS: C-Reactive Protein 22.9 mg/dL (0.00-1.30)
[2019-07-06 02:26] LABS: ABG Base Excess -1.1 mmol/L (-2.0-3.0); ABG HCO3 23.1 mmol/L (20.0-26.0); ABG Methemoglobin 0.4 % (0.0-1.5); ABG Oxygen Saturation 94.8 % (95.0-99.0); ABG PCO2 36.1 mm Hg; ABG PH 7.424 pH Units (7.350-7.450); ABG PO2 70.3 mm Hg (80.0-90.0)
[2019-07-06] MEDS: INSULIN LISPRO 100 UNIT/ML SUB-Q SCH ×6 (02:53→23:37)
[2019-07-06 04:14] LABS: Hemoglobin 6.7 gm/dl (11.8-15.2); Mean Corpuscular HGB Conc 34 % (32-34); Mean Corpuscular Volume 79 fl (84-94); Platelet Count 309 K/mm3 (140-440); Red Blood Count 2.51 M/mm3 (3.65-5.03); Red Cell Distribution Width 19.2 % (13.2-15.2)
[2019-07-06 04:54] LABS: BUN/Creatinine Ratio 46; Blood Urea Nitrogen 23 mg/dL (9-20); Hemolysis Index 12
[2019-07-06 04:56] LABS: Hematocrit 19.9 % (35.5-45.6)
[2019-07-06] MEDS ORDERED: SODIUM CHLORIDE 0.9% 500 ML 500 ML IV ONE (05:19)
[2019-07-06 05:41] LABS: Basophils % (Manual) 0 % (0.0-1.8); Eosinophils % (Manual) 0 % (0.0-4.3); Monocytes % (Manual) 0 % (0.0-7.3)
[2019-07-06] MEDS ORDERED: CEFEPIME/NS 2 GM/100 ML 2 GM/100 ML BAG IV ONE ×2 (05:41→14:21)
[2019-07-06] MEDS ORDERED: LACTATED RINGERS 1,000 ML ONE (05:41)
[2019-07-06 05:43] LABS: Anisocytosis 1+; Band Neutrophils # (Manual) 3.3 K/mm3; Total Cells Counted 200
[2019-07-06 05:44] LABS: Platelet Estimate Consistent w Auto
[2019-07-06] MEDS: CEFEPIME/NS 2 GM/100 ML 2 GM/100 ML BAG IV SCH ×3 (06:00→23:00)
[2019-07-06] MEDS: LACTATED RINGERS 1,000 ML IV SCH (06:30)
--- NOTE | 2019-07-06 06:42 | XRay Report ---
CHEST 1 VIEW 07/06/2019 5:21 AM INDICATION / CLINICAL INFORMATION: follow up respiratory failure. COMPARISON: 07/05/19 FINDINGS: SUPPORT DEVICES: Stable, satisfactory device positioning. HEART / MEDIASTINUM: Stable. LUNGS / PLEURA: Extensive bilateral pulmonary opacities are unchanged. No pneumothorax. ADDITIONAL FINDINGS: No significant additional findings. IMPRESSION: 1. No significant change. Signer Name: Vida Patrick MD Signed: 07/06/2019 6:38 AM Workstation Name: [id number]
--- NOTE | 2019-07-06 10:23 | Progress Note ---
Assessment and Plan Cultures: 07/03/2019 urine culture: No growth 07/03/2019 Tracheal aspirate: GNR A/P: 69-year-old male with CVA, hypertension, dementia, schizophrenia, alcohol use disorder was admitted to the emergency room after being brought in by EMS with progressive shortness of breath and unresponsiveness. He was noted to have agonal breathing and a faint pulse requiring CPR. It seems patient was on hospice recently. #Shock, likely septic: Lactic acidosis #Severe COVID-19 disease and pneumonia: Elevated markers #Acute respiratory failure: on mechanical ventilation. #Transaminitis: Likely from COVID-19, shock Recs: Continue Plaquenil x 5 days total Continue empiric IV cefepime, vancomycin Follow up ID of GNR in ET aspirate Prognosis remains extremely poor. Given his critical status, h/o dementia, multiple comorbidities and he was on hospice recently, consider palliative care. Yanna Calzada MD, FACP [facility] ([facility] C: [phone] O: [phone] F: [phone] Subjective Date of service: 07/06/19 Principal diagnosis: COVID-19 Interval history: Low grade fevers. Remains critically ill, on the vent. On pressors. PUI?: No COVID19: Positive Objective - Exam Narrative Exam: Physical Exam (reviewed in chart due to PPE conservation) Constitutional: intubated, sedated, on the vent Head, Ears, Nose: normocephalic, atraumatic Eyes: limited due to PPE conservation strategy Neck: intubated Oral: intubated Cardiovascular: limited due to PPE conservation strategy Respiratory: limited due to PPE conservation strategy GI: limited due to PPE conservation strategy Musculoskeletal: limited due to PPE conservation strategy Skin: limited due to PPE conservation strategy Hem/Lymphatic: limited due to PPE conservation strategy Psych: no agitation Neurological: sedated, intubated, on the vent, exam limited - Constitutional Vitals: Vital Signs Temp Pulse Resp BP Pulse Ox 99.8 F H 135 H 26 H 120/58 95 07/06/19 06:15 07/06/19 08:22 07/06/19 08:00 07/06/19 08:22 07/06/19 08:22 Temperature -Last 24 Hours Temperature 99.8 F - Labs CBC & Chem 7: 07/06/19 03:49 07/06/19 03:49 Labs: Abnormal lab results 07/04/19 07/05/19 07/05/19 Range/Units 10:09 04:00 10:11 WBC 46.4 H* (4.5-11.0) K/mm3 RBC 2.77 L (3.65-5.03) M/mm3 Hgb 7.2 L (11.8-15.2) gm/dl Hct 21.9 L (35.5-45.6) % MCV 79 L (84-94) fl MCH 26 L (28-32) pg RDW 19.0 H (13.2-15.2) % Seg Neuts % (Manual) 82.0 H (40.0-70.0) % Lymphocytes % (Manual) 1.0 L (13.4-35.0) % Seg Neutrophils # Man 38.0 H (1.8-7.7) K/mm3 Lymphocytes # (Manual) 0.5 L (1.2-5.4) K/mm3 D-Dimer (0-234) ng/mlDDU ABG pO2 (80.0-90.0) mm Hg ABG O2 Saturation (95.0-99.0) % ABG Hemoglobin (14.0-18.0) gm/dl Oxyhemoglobin (95.0-99.0) % Sodium 125 L (137-145) mmol/L Chloride 92.6 L (98-107) mmol/L Carbon Dioxide 19 L (22-30) mmol/L BUN 24 H (9-20) mg/dL Creatinine 0.6 L (0.8-1.5) mg/dL POC Glucose (70-105) Calcium 8.2 L (8.4-10.2) mg/dL Magnesium 1.40 L (1.7-2.3) mg/dL Ferritin (13.0-400.0) ng/mL Lactate Dehydrogenase (91-180) units/L C-Reactive Protein (0.00-1.30) mg/dL Vancomycin Trough (5.0-20.0) ug/mL Coronavirus (PCR) Positive A (Negative) Crossmatch 07/05/19 07/05/19 07/05/19 Range/Units 16:15 17:54 19:58 WBC (4.5-11.0) K/mm3 RBC (3.65-5.03) M/mm3 Hgb (11.8-15.2) gm/dl Hct (35.5-45.6) % MCV (84-94) fl MCH (28-32) pg RDW (13.2-15.2) % Seg Neuts % (Manual) (40.0-70.0) % Lymphocytes % (Manual) (13.4-35.0) % Seg Neutrophils # Man (1.8-7.7) K/mm3 Lymphocytes # (Manual) (1.2-5.4) K/mm3 D-Dimer (0-234) ng/mlDDU ABG pO2 (80.0-90.0) mm Hg ABG O2 Saturation (95.0-99.0) % ABG Hemoglobin (14.0-18.0) gm/dl Oxyhemoglobin (95.0-99.0) % Sodium 127 L (137-145) mmol/L Chloride (98-107) mmol/L Carbon Dioxide (22-30) mmol/L BUN (9-20) mg/dL Creatinine (0.8-1.5) mg/dL POC Glucose 69 L (70-105) Calcium (8.4-10.2) mg/dL Magnesium (1.7-2.3) mg/dL Ferritin (13.0-400.0) ng/mL Lactate Dehydrogenase (91-180) units/L C-Reactive Protein (0.00-1.30) mg/dL Vancomycin Trough 23.2 H (5.0-20.0) ug/mL Coronavirus (PCR) (Negative) Crossmatch 07/06/19 07/06/19 07/06/19 Range/Units 00:27 00:27 00:27 WBC (4.5-11.0) K/mm3 RBC (3.65-5.03) M/mm3 Hgb (11.8-15.2) gm/dl Hct (35.5-45.6) % MCV (84-94) fl MCH (28-32) pg RDW (13.2-15.2) % Seg Neuts % (Manual) (40.0-70.0) % Lymphocytes % (Manual) (13.4-35.0) % Seg Neutrophils # Man (1.8-7.7) K/mm3 Lymphocytes # (Manual) (1.2-5.4) K/mm3 D-Dimer 1333.22 H (0-234) ng/mlDDU ABG pO2 (80.0-90.0) mm Hg ABG O2 Saturation (95.0-99.0) % ABG Hemoglobin (14.0-18.0) gm/dl Oxyhemoglobin (95.0-99.0) % Sodium (137-145) mmol/L Chloride (98-107) mmol/L Carbon Dioxide (22-30) mmol/L BUN (9-20) mg/dL Creatinine (0.8-1.5) mg/dL POC Glucose (70-105) Calcium (8.4-10.2) mg/dL Magnesium (1.7-2.3) mg/dL Ferritin 977.1 H (13.0-400.0) ng/mL Lactate Dehydrogenase 236 H (91-180) units/L C-Reactive Protein 22.90 H (0.00-1.30) mg/dL Vancomycin Trough (5.0-20.0) ug/mL Coronavirus (PCR) (Negative) Crossmatch 07/06/19 07/06/19 07/06/19 Range/Units 02:00 02:56 03:49 WBC 38.8 H (4.5-11.0) K/mm3 RBC 2.51 L (3.65-5.03) M/mm3 Hgb 6.7 L (11.8-15.2) gm/dl Hct 19.9 L* (35.5-45.6) % MCV 79 L (84-94) fl MCH 27 L (28-32) pg RDW 19.2 H (13.2-15.2) % Seg Neuts % (Manual) 90.5 H (40.0-70.0) % Lymphocytes % (Manual) 1.0 L (13.4-35.0) % Seg Neutrophils # Man 35.1 H (1.8-7.7) K/mm3 Lymphocytes # (Manual) 0.4 L (1.2-5.4) K/mm3 D-Dimer (0-234) ng/mlDDU ABG pO2 70.3 L (80.0-90.0) mm Hg ABG O2 Saturation 94.8 L (95.0-99.0) % ABG Hemoglobin 8.0 L (14.0-18.0) gm/dl Oxyhemoglobin 93.2 L (95.0-99.0) % Sodium (137-145) mmol/L Chloride (98-107) mmol/L Carbon Dioxide (22-30) mmol/L BUN (9-20) mg/dL Creatinine (0.8-1.5) mg/dL POC Glucose 117 H (70-105) Calcium (8.4-10.2) mg/dL Magnesium (1.7-2.3) mg/dL Ferritin (13.0-400.0) ng/mL Lactate Dehydrogenase (91-180) units/L C-Reactive Protein (0.00-1.30) mg/dL Vancomycin Trough (5.0-20.0) ug/mL Coronavirus (PCR) (Negative) Crossmatch 07/06/19 07/06/19 Range/Units 03:49 07:40 WBC (4.5-11.0) K/mm3 RBC (3.65-5.03) M/mm3 Hgb (11.8-15.2) gm/dl Hct (35.5-45.6) % MCV (84-94) fl MCH (28-32) pg RDW (13.2-15.2) % Seg Neuts % (Manual) (40.0-70.0) % Lymphocytes % (Manual) (13.4-35.0) % Seg Neutrophils # Man (1.8-7.7) K/mm3 Lymphocytes # (Manual) (1.2-5.4) K/mm3 D-Dimer (0-234) ng/mlDDU ABG pO2 (80.0-90.0) mm Hg ABG O2 Saturation (95.0-99.0) % ABG Hemoglobin (14.0-18.0) gm/dl Oxyhemoglobin (95.0-99.0) % Sodium 131 L (137-145) mmol/L Chloride 96.9 L (98-107) mmol/L Carbon Dioxide 18 L (22-30) mmol/L BUN 23 H (9-20) mg/dL Creatinine 0.5 L (0.8-1.5) mg/dL POC Glucose (70-105) Calcium 8.0 L (8.4-10.2) mg/dL Magnesium (1.7-2.3) mg/dL Ferritin (13.0-400.0) ng/mL Lactate Dehydrogenase (91-180) units/L C-Reactive Protein (0.00-1.30) mg/dL Vancomycin Trough (5.0-20.0) ug/mL Coronavirus (PCR) (Negative) Crossmatch See Detail - Imaging and cardiology Chest x-ray: report reviewed, image reviewed (diffuse bilateral infiltrates without interval change)
[2019-07-06] MEDS ORDERED: SODIUM CHLORIDE 0.9% 500 ML 500 ML ONE (11:01)
[2019-07-06] MEDS ORDERED: ASPIRIN 81 MG TAB CHEW ONE (11:01)
[2019-07-06] MEDS ORDERED: HYDROXYCHLOROQUINE 200 MG TAB ONE (11:02)
[2019-07-06] MEDS ORDERED: FOLIC ACID 1 MG TAB ONE (11:02)
[2019-07-06] MEDS ORDERED: FAMOTIDINE 20 MG/2 ML INJ IV ONE (11:03)
--- NOTE | 2019-07-06 11:39 | Progress Note ---
Assessment and Plan 1. Hypoantremia: The cause for hypoantremia is unclear. Suspect SIADH. Sodium level is gradually improving. Sodium bicarbonate through the PEG tube. Monitor Sodium level. 2. FEN: Metabolic acidosis, improving on Sodium bicarbonate, monitor. Hyperkalemia, improved, monitor. Monitor volume status and lytes. 3. Acute hypoxic respiratory failure: Currently intubated and on vent. Pulmonary following. 4. Severe Sepsis, POA. Followed by ID. 5. Severe COVID-19 pneumonia. 6. Shock: On Levophed. 7. Microcytic anemia, POA: Monitor. 8. Diabetes mellitus. 9. COPD. 10. Encephalopathy, POA: Metabolic. - Subjective history: Patient was seen and examined at the bedside. - General Appearance General appearance: well-developed, appears stated age, intubated on ventilator, emaciated HEENT: ATNC, pupils equal Neck: trachea midline Respiratory: Clear to Ascultation Heart: regular, S1S2, no murmur Gastrointestinal: soft, normoactive bowel sounds, not tender, PEG tube noted Integumentary: ulcer both feet Neurologic: not responding Ext: trace ankle edema Subjective Date of service: 07/06/19 Principal diagnosis: COVID-19 PUI?: No COVID19: Positive Objective - Vital Signs Vital signs: Vital Signs - 12hr 07/05/19 07/06/19 07/06/19 23:41 00:00 01:00 Temperature Pulse Rate 130 H 129 H 130 H Respiratory 19 25 H 25 H Rate Blood Pressure 127/68 124/64 117/62 O2 Sat by Pulse 98 97 96 Oximetry 07/06/19 07/06/19 07/06/19 02:00 03:00 03:19 Temperature Pulse Rate 134 H 131 H 134 H Respiratory 22 24 Rate Blood Pressure 130/65 128/62 130/65 O2 Sat by Pulse 96 96 96 Oximetry 07/06/19 07/06/19 07/06/19 04:00 05:00 06:00 Temperature Pulse Rate 130 H 130 H 132 H Respiratory 24 25 H 24 Rate Blood Pressure 118/57 121/66 123/67 O2 Sat by Pulse 96 96 97 Oximetry 07/06/19 07/06/19 07/06/19 06:15 07:00 08:00 Temperature 99.8 F H Pulse Rate 135 H 132 H Respiratory 28 H 26 H Rate Blood Pressure 117/63 120/58 O2 Sat by Pulse 93 95 Oximetry 07/06/19 08:22 Temperature Pulse Rate 135 H Respiratory Rate Blood Pressure 120/58 O2 Sat by Pulse 95 Oximetry - Lab 07/06/19 03:49 07/06/19 03:49 Most recent lab results ABG pH 7.424 pH Units (7.350-7.450) 07/06/19 02:00 ABG pCO2 36.1 mm Hg 07/06/19 02:00 ABG pO2 70.3 mm Hg (80.0-90.0) L 07/06/19 02:00 ABG HCO3 23.1 mmol/L (20.0-26.0) 07/06/19 02:00 ABG O2 Saturation 94.8 % (95.0-99.0) L 07/06/19 02:00 Calcium 8.0 mg/dL (8.4-10.2) L 07/06/19 03:49 Phosphorus 3.60 mg/dL (2.5-4.5) 07/05/19 04:00 Magnesium 1.70 mg/dL (1.7-2.3) 07/06/19 03:49 Medications & Allergies - Medications Allergies/Adverse Reactions: Allergies No Known Allergies Allergy (Unverified 09/09/16 16:29) Home Medications: Home Medications Medication Instructions Recorded Confirmed Last Taken Type Acetaminophen [Tylenol] 500 mg PO TID 07/04/19 07/04/19 Unknown History Albuterol Sulfate [Proair 90 mcg IH TID 07/04/19 07/04/19 Unknown History Digihaler] Amlodipine Besylate [Norvasc] 2.5 mg PO QDAY 07/04/19 07/04/19 Unknown History Aspirin [Aspirin BABY CHEW TAB] 81 mg PO QDAY 07/04/19 07/04/19 Unknown History Atorvastatin Calcium [Lipitor] 80 mg PO QDAY 07/04/19 07/04/19 Unknown History Benztropine Mesylate 0.5 mg PO QDAY 07/04/19 07/04/19 Unknown History Budesonide/Formoterol Fumarate 10.2 gm IH BID 07/04/19 07/04/19 Unknown History [Budesonide-Formoterol 160-4.5] Divalproex ER [DepaKOTE ER] 1,000 mg PO QDAY 07/04/19 07/04/19 Unknown History Docusate Sodium [Colace] 100 mg PO QDAY 07/04/19 07/04/19 Unknown History Folic Acid [Folvite] 1 mg PO QDAY 07/04/19 07/04/19 Unknown History Hydrophilic Ointment [Dermafix] 113 gm TP QDAY 07/04/19 07/04/19 Unknown History Losartan [Cozaar] 100 mg PO QDAY 07/04/19 07/04/19 Unknown History Metformin HCl [Metformin HCl ER] 500 mg PO QDAY 07/04/19 07/04/19 Unknown History Metoprolol Tartrate 25 mg PO BID 07/04/19 07/04/19 Unknown History Multivit with Minerals/Ginseng 1 each PO QDAY 07/04/19 07/04/19 Unknown History [Super Ginseng Multivit Cap] Quetiapine Fumarate [SEROquel Xr] 400 mg PO QHS 07/04/19 07/04/19 Unknown Hist ory Sertraline HCl [Zoloft] 100 mg PO QDAY 07/04/19 07/04/19 Unknown History Sildenafil Citrate [Viagra] 100 mg PO QDAY PRN 07/04/19 07/04/19 Unknown History Tamsulosin [Flomax] 0.4 mg PO QDAY 07/04/19 07/04/19 Unknown History Active Medications: Generic Name Dose Route Start Last Admin Trade Name Freq PRN Reason Stop Dose Admin Acetaminophen 650 mg 07/04/19 04:24 Tylenol PO Q6H PRN Pain MILD(1-3)/Fever >100.5/MURO Acetaminophen 650 mg 07/04/19 04:24 Tylenol IN Q6H PRN Pain MILD(1-3)/Fever >100.5/MURO Lipase/Protease/Amylase 1 each 07/04/19 10:[address] 10,500 Unit FEEDTUBE PRN PRN For Clogged Feeding Tube Aspirin 81 mg 07/05/19 10:00 07/05/19 12:00 Baby Aspirin PO 81 mg QDAY TAMMIE Administration Dextrose 50 ml 07/04/19 06:54 D50w (25gm) Syringe IV Q30MIN PRN Hypoglycemia Protocol Famotidine 20 mg 07/04/19 10:00 07/05/19 23:40 Pepcid IV 20 mg BID TAMMIE Administration Folic Acid 1 mg 07/05/19 10:00 07/05/19 12:00 Folvite PO 1 mg QDAY TAMMIE Administration Hydrophilic Ointment 1 applic 07/03/19 19:56 07/05/19 17:42 Vaseline Lip Therapy TP 1 applic Q2HR PRN Administration Dry Lips Hydroxychloroquine Sulfate 200 mg 07/06/19 10:00 Plaquenil PO 07/09/19 23:59 BID TAMMIE Norepinephrine 4 mg in 250 mls @ 7.5 mls/hr 07/03/19 23:00 07/05/19 21:30 Levophed Drip 4 Mg/Ns 250 Ml IV 5 mcg/min TITR TAMMIE 18.75 mls/hr Titration Protocol 2 MCG/MIN Lactated Ringer's 1,000 mls @ 125 mls/hr 07/04/19 05:00 07/06/19 06:30 Lactated Ringers IV 07/06/19 12:59 125 mls/hr DIRECT TAMMIE Administration Cefepime HCl 2 gm in 100 mls @ 200 mls/hr 07/04/19 06:00 07/06/19 06:00 Cefepime/Ns 2 Gm/100 Ml IV 200 mls/hr Q8HR TAMMIE Administration Protocol Vancomycin HCl 1,500 mg/ 530 mls @ 333.333 mls/hr 07/06/19 22:00 Sodium Chloride IV Q24H [facility] Insulin Human Lispro 0 unit 07/04/19 10:00 07/06/19 06:30 Humalog SUB-Q Not Given Q4HR [facility] Protocol Levetiracetam 750 mg 07/06/19 11:00 Keppra FEEDTUBE Q12HR TAMMIE Morphine Sulfate 2 mg 07/04/19 04:24 Morphine IV Q4H PRN Pain, Moderate (4-6) Multi-Ingred Cream/Lotion/Oil/Oint 1 applic 07/03/19 19:56 07/05/19 13:19 Artificial Tears Ophth Oint OU 1 applic Q4HR PRN Administration Dry Eye(s) Naloxone HCl 0.1 mg 07/04/19 04:24 Naloxone IV Q2MIN PRN Res Rate </= 8 or 02 SAT < 92% Simple Syrup 15 ml 07/04/19 10:04 07/05/19 17:42 Simple Syrup FEEDTUBE 15 ml PRN PRN Administration Hypoglycemia Simple Syrup 30 ml 07/04/19 10:04 Simple Syrup FEEDTUBE PRN PRN Hypoglycemia Sodium Bicarbonate 325 mg 07/04/19 10:04 Sodium Bicarbonate FEEDTUBE PRN PRN For Clogged Feeding Tube Sodium Bicarbonate 650 mg 07/05/19 14:00 07/05/19 21:30 Sodium Bicarbonate PO 650 mg TID TAMMIE Administration Sodium Chloride 10 ml 07/04/19 10:00 07/05/19 23:41 Sodium Chloride Flush Syringe 10 Ml IV 10 ml BID TAMMIE Administration Sodium Chloride 10 ml 07/04/19 04:24 Sodium Chloride Flush Syringe 10 Ml IV PRN PRN LINE FLUSH
[2019-07-06] MEDS ORDERED: levETIRAcetam 500 MG/5 ML ORAL LIQD ONE (11:42)
[2019-07-06] MEDS ORDERED: ACETAMINOPHEN 650 MG RECT SUPP PR ONE (12:10)
[2019-07-06] MEDS: HYDROXYCHLOROQUINE 200 MG TAB PO SCH ×2 (12:15→23:39)
[2019-07-06] MEDS: FOLIC ACID 1 MG TAB PO SCH (12:15)
[2019-07-06] MEDS: levETIRAcetam 500 MG/5 ML ORAL LIQD FEEDTUBE SCH ×2 (12:15→23:38)
--- NOTE | 2019-07-06 12:42 | Progress Note ---
Assessment and Plan S/p Cardiopulmonary arrest with ROSC Severe Sepsis with septic shock. Acute hypoxemic respiratory failure on MVS COVID-19 positive Bilateral pneumonia Elevated LFTs. Oropharyngeal dysphagia s/p PEG Acute kidney injury Decubitus ulcers-unstageable Moderate protein calorie malnutriton [id number] metabolic acidosis Leukocytosis >40,000 Microcytic anemia -Transfuse 1 unit PRBC for anemia <7g/dL -Change stress ulcer prophylaxis to therapeutic dosing -FOBT -Per primary service- patient is now DNAR, in the event of cardiac arrest, per her discussion with his , but remains full aggressive care -Decrease PEEP to 6, ABG in the morning an d initiate spontaneous breathing trials -CXR in am -Complete Plaquenil therapy per ID while daily monitoring QTc -If QTc >500, stop Plaquenil -GNR in tracheal aspirate, ID pending - continue airborne, droplet and contact isolation for COVID-19 - continue wean Levophed for target MAP > 65 mmHg - continue empiric anti-infectives and de-escalate per ID recommendations - continue wound care per WCT - sedation prn for target RASS 0 to -1 - continue to wean supplemental oxygen for target O2 sat's > 90% - Daily SAT's and SBT assessment as tolerated - VAP bundle addressed - continue lung protective strategies - continue bronchodilators with pulmonary hygiene per RT - wean per pulmonary driven protocols otherwise - accuchecks with glycemic control per SSI (While critically ill target blood glucose of 140-180 mg/dL; avoid hypoglycemia) - continue to avoid benzodiazepines, reduce the possibility of delirium - prn analgesia per CPOT score - Maintenance of sleep-wake cycle, avoid delirium - continue enteral nutritional support at goal rate as tolerated - Stress ulcer & VTE prophylaxis - PT/OT/ROM exercises - continue mobility protocol, off loading and skin assessment for pressure ulcer prevention - Monitor hemodynamics closely -Wright catheter in this critically ill patient requiring vasopressor support and with unstageable sacral decubitus ulcer -Has a femoral triple lumen catheter. Plan to discontinue the femoral CVC, place PICC line if he continues to require vasopressor support for another 24 hours. -PEG site care, appears to be leaking around the site - continue other care per attending / other consultants - discharge planning ongoing concurrently .... Re-evaluate in am & prn CONDITION: CRITICAL PROGNOSIS: GUARDED CODE STATUS: DNAR Called his family to discuss goals of care, unable to make contact with them He was apparently in hospice prior to this admission The high probability of a clinically significant, sudden or life-threatening deterioration of the [respiratory & cardiovascular] system(s) required my full and direct attention, intervention and personal management. The aggregate critical care time was [35] minutes without overlap. Time includes spent on; [x] Data Review and interpretation [x] Patient assessment and monitoring of vital signs [x] Documentation [x] Medication orders and management Subjective Date of service: 07/06/19 Principal diagnosis: COVID-19 Interval history: The patient is a 69-year-old male with CVA, hypertension, dementia, schizophrenia, alcohol use disorder was admitted to the emergency room after being brought in by EMS with progressive shortness of breath and unresponsiveness. He was noted to have agonal breathing and a faint pulse requiring CPR. Patient was intubated and brought to the hospital. It seems, patient was on home hospice. Currently, remains critically ill, intubated, on mechanical ventilation. His COVID test resulted positive. Patient is seen today for: s/p cardiopulmonary arrest with ROSC;Ac hypoxemic Resp failure on MVS; Severe sepsis with Shock; Bilateral Pneumonia; POSITIVE coronavirus-19 infection. Seen and examined at bedside; 24hour events reviewed; nursing and respiratory care staff consulted; no adverse overnight events reported to me; resting in bed; remains on MVS at PEEP 8 and FIO2 of 50%; AMS is persistent; no emesis or overt aspiration; on norepinephrine at 5mcg via a femoral catheter, On cefepime and Vancomycin. Hemoglobin of <7g/dL this morning, no obvious bleeding Contracted. PUI?: No COVID19: Positive Objective - Exam Narrative Exam: Vitals reviewed Constitutional: appears uncomfortable, other (eelderly and chronically ill looking AAM, normocephalic with mildly increased respiratory effort at rest) Eyes: non-icteric ENT: oropharynx moist, other (ETT 24 cm RUTH) Neck: supple, no lymphadenopathy, no JVD Effort: mildly labored Ascultation: Bilateral: diminished breath sounds, rhonchi Percussion: Bilateral: not dull Cardiovascular: regular rate and rhythm Gastrointestinal: normoactive bowel sounds, soft, non-tender, non-distended, other (+ PEG tube with mild TF leakage) Integumentary: decubitus ulcer Extremities: no cyanosis, no edema, pink and warm, pulses normal, Contracted lower extremities Neurologic: unable to assess Psychiatric: other (Unable to assess re: AMS) Vital Signs - 12hr 07/06/19 07/06/19 07/06/19 01:00 02:00 03:00 Temperature Pulse Rate 130 H 134 H 131 H Respiratory 25 H 22 24 Rate Blood Pressure 117/62 130/65 128/62 O2 Sat by Pulse 96 96 96 Oximetry 07/06/19 07/06/19 07/06/19 03:19 04:00 05:00 Temperature Pulse Rate 134 H 130 H 130 H Respiratory 24 25 H Rate Blood Pressure 130/65 118/57 121/66 O2 Sat by Pulse 96 96 96 Oximetry 07/06/19 07/06/19 07/06/19 06:00 06:15 07:00 Temperature 99.8 F H Pulse Rate 132 H 135 H Respiratory 24 28 H Rate Blood Pressure 123/67 117/63 O2 Sat by Pulse 97 93 Oximetry 07/06/19 07/06/19 07/06/19 08:00 08:22 12:20 Temperature 101.4 F H Pulse Rate 132 H 135 H 136 H Respiratory 26 H 27 H Rate Blood Pressure 120/58 120/58 120/62 O2 Sat by Pulse 95 95 96 Oximetry 07/06/19 12:25 Temperature 101.3 F H Pulse Rate 136 H Respiratory 26 H Rate Blood Pressure 125/61 O2 Sat by Pulse 96 Oximetry CBC and BMP: 07/09/19 04:30 07/09/19 04:30 ABG, PT/INR, D-dimer: ABG ABG pH 7.424 pH Units (7.350-7.450) 07/06/19 02:00 ABG pCO2 36.1 mm Hg 07/06/19 02:00 ABG pO2 70.3 mm Hg (80.0-90.0) L 07/06/19 02:00 ABG O2 Saturation 94.8 % (95.0-99.0) L 07/06/19 02:00 PT/INR, D-dimer PT 16.0 Sec. (12.2-14.9) H 07/03/19 22:20 INR 1.26 (0.87-1.13) H 07/03/19 22:20 D-Dimer 1333.22 ng/mlDDU (0-234) H 07/06/19 00:27 Abnormal lab findings: Abnormal Labs 07/03/19 07/03/19 07/03/19 19:57 21:10 21:13 WBC RBC Hgb Hct MCV MCH RDW Plt Count Seg Neuts % (Manual) Lymphocytes % (Manual) Seg Neutrophils # Man Lymphocytes # (Manual) PT INR D-Dimer ABG pH 7.238 L ABG pO2 210.8 H ABG HCO3 15.4 L ABG O2 Saturation 99.2 H ABG Base Excess -11.1 L ABG Hemoglobin 8.0 L Oxyhemoglobin Sodium 124 L Potassium Chloride 92.9 L Carbon Dioxide 10 L BUN 23 H Creatinine 0.5 L Glucose 118 H POC Glucose Lactic Acid Calcium 7.0 L Magnesium Iron TIBC Ferritin AST 70 H ALT 88 H Lactate Dehydrogenase Troponin T 0.032 H C-Reactive Protein Total Protein 5.0 L Albumin 1.8 L Cholesterol 47 L LDL Cholesterol Direct 25 L HDL Cholesterol 20 L Urine WBC (Auto) 12.0 H Vancomycin Trough Coronavirus (PCR) Crossmatch 07/03/19 07/03/19 07/03/19 22:20 22:20 22:20 WBC 30.5 H RBC 2.96 L Hgb 7.7 L Hct 23.9 L MCV 81 L MCH 26 L RDW 18.6 H Plt Count 459 H Seg Neuts % (Manual) 93.0 H Lymphocytes % (Manual) 0.5 L Seg Neutrophils # Man 28.4 H Lymphocytes # (Manual) 0.2 L PT 16.0 H INR 1.26 H D-Dimer ABG pH ABG pO2 ABG HCO3 ABG O2 Saturation ABG Base Excess ABG Hemoglobin Oxyhemoglobin Sodium Potassium Chloride Carbon Dioxide BUN Creatinine Glucose POC Glucose Lactic Acid 6.90 H* Calcium Magnesium Iron TIBC Ferritin AST ALT Lactate Dehydrogenase Troponin T C-Reactive Protein Total Protein Albumin Cholesterol LDL Cholesterol Direct HDL Cholesterol Urine WBC (Auto) Vancomycin Trough Coronavirus (PCR) Crossmatch 07/03/19 07/04/19 07/04/19 23:58 05:15 07:05 WBC 17.1 H RBC 3.22 L Hgb 8.3 L Hct 25.4 L MCV 79 L MCH 26 L RDW 18.6 H Plt Count Seg Neuts % (Manual) 74.0 H Lymphocytes % (Manual) 0 L Seg Neutrophils # Man 12.7 H Lymphocytes # (Manual) 0.0 L PT INR D-Dimer ABG pH 7.310 L ABG pO2 73.2 L ABG HCO3 17.8 L ABG O2 Saturation 93.8 L ABG Base Excess -7.7 L ABG Hemoglobin 9.6 L Oxyhemoglobin 92.3 L Sodium Potassium Chloride Carbon Dioxide BUN Creatinine Glucose POC Glucose Lactic Acid 7.10 H* Calcium Magnesium Iron TIBC Ferritin AST ALT Lactate Dehydrogenase Troponin T C-Reactive Protein Total Protein Albumin Cholesterol LDL Cholesterol Direct HDL Cholesterol Urine WBC (Auto) Vancomycin Trough Coronavirus (PCR) Crossmatch 07/04/19 07/04/19 07/04/19 07:05 07:05 07:05 WBC RBC Hgb Hct MCV MCH RDW Plt Count Seg Neuts % (Manual) Lymphocytes % (Manual) Seg Neutrophils # Man Lymphocytes # (Manual) PT INR D-Dimer ABG pH ABG pO2 ABG HCO3 ABG O2 Saturation ABG Base Excess ABG Hemoglobin Oxyhemoglobin Sodium 120 L Potassium 5.1 H Chloride 90.0 L Carbon Dioxide 14 L BUN 26 H Creatinine 0.5 L Glucose POC Glucose Lactic Acid 3.30 H* Calcium 8.0 L Magnesium Iron 9 L TIBC 97 L Ferritin AST 73 H ALT 91 H Lactate Dehydrogenase Troponin T C-Reactive Protein Total Protein 5.5 L Albumin 2.0 L Cholesterol LDL Cholesterol Direct HDL Cholesterol Urine WBC (Auto) Vancomycin Trough Coronavirus (PCR) Crossmatch 07/04/19 07/04/19 07/04/19 09:39 09:39 09:39 WBC RBC Hgb Hct MCV MCH RDW Plt Count Seg Neuts % (Manual) Lymphocytes % (Manual) Seg Neutrophils # Man Lymphocytes # (Manual) PT INR D-Dimer 1419.14 H ABG pH ABG pO2 ABG HCO3 ABG O2 Saturation ABG Base Excess ABG Hemoglobin Oxyhemoglobin Sodium Potassium Chloride Carbon Dioxide BUN Creatinine Glucose POC Glucose Lactic Acid Calcium Magnesium Iron TIBC Ferritin 1719.0 H AST ALT Lactate Dehydrogenase 234 H Troponin T C-Reactive Protein 15.50 H Total Protein Albumin Cholesterol LDL Cholesterol Direct HDL Cholesterol Urine WBC (Auto) Vancomycin Trough Coronavirus (PCR) Crossmatch 07/04/19 07/04/19 07/04/19 10:09 18:08 18:28 WBC RBC Hgb Hct MCV MCH RDW Plt Count Seg Neuts % (Manual) Lymphocytes % (Manual) Seg Neutrophils # Man Lymphocytes # (Manual) PT INR D-Dimer ABG pH ABG pO2 ABG HCO3 ABG O2 Saturation ABG Base Excess ABG Hemoglobin Oxyhemoglobin Sodium 117 L* Potassium 5.6 H Chloride 90.3 L Carbon Dioxide 16 L BUN 28 H Creatinine 0.5 L Glucose 58 L POC Glucose 65 L Lactic Acid Calcium 8.2 L Magnesium Iron TIBC Ferritin AST ALT Lactate Dehydrogenase Troponin T C-Reactive Protein Total Protein Albumin Cholesterol LDL Cholesterol Direct HDL Cholesterol Urine WBC (Auto) Vancomycin Trough Coronavirus (PCR) Positive A Crossmatch 07/04/19 07/04/19 07/04/19 23:45 Unknown Unknown WBC RBC Hgb Hct MCV MCH RDW Plt Count Seg Neuts % (Manual) Lymphocytes % (Manual) Seg Neutrophils # Man Lymphocytes # (Manual) PT INR D-Dimer 759.77 H ABG pH ABG pO2 ABG HCO3 ABG O2 Saturation ABG Base Excess ABG Hemoglobin Oxyhemoglobin Sodium 122 L Potassium Chloride 93.0 L Carbon Dioxide 19 L BUN 27 H Creatinine 0.5 L Glucose POC Glucose Lactic Acid Calcium 8.3 L Magnesium Iron TIBC Ferritin 1301.0 H AST ALT Lactate Dehydrogenase Troponin T C-Reactive Protein Total Protein Albumin Cholesterol LDL Cholesterol Direct HDL Cholesterol Urine WBC (Auto) Vancomycin Trough Coronavirus (PCR) Crossmatch 07/04/19 07/05/19 07/05/19 Unknown 03:20 04:00 WBC RBC Hgb Hct MCV MCH RDW Plt Count Seg Neuts % (Manual) Lymphocytes % (Manual) Seg Neutrophils # Man Lymphocytes # (Manual) PT INR D-Dimer ABG pH ABG pO2 60.6 L ABG HCO3 ABG O2 Saturation 93.5 L ABG Base Excess -2.4 L ABG Hemoglobin 6.9 L Oxyhemoglobin 92.0 L Sodium 125 L Potassium Chloride 92.6 L Carbon Dioxide 19 L BUN 24 H Creatinine 0.6 L Glucose POC Glucose Lactic Acid Calcium 8.2 L Magnesium 1.40 L Iron TIBC Ferritin AST ALT Lactate Dehydrogenase 242 H Troponin T C-Reactive Protein 16.70 H Total Protein Albumin Cholesterol LDL Cholesterol Direct HDL Cholesterol Urine WBC (Auto) Vancomycin Trough Coronavirus (PCR) Crossmatch 07/05/19 07/05/19 07/05/19 10:11 16:15 17:54 WBC 46.4 H* RBC 2.77 L Hgb 7.2 L Hct 21.9 L MCV 79 L MCH 26 L RDW 19.0 H Plt Count Seg Neuts % (Manual) 82.0 H Lymphocytes % (Manual) 1.0 L Seg Neutrophils # Man 38.0 H Lymphocytes # (Manual) 0.5 L PT INR D-Dimer ABG pH ABG pO2 ABG HCO3 ABG O2 Saturation ABG Base Excess ABG Hemoglobin Oxyhemoglobin Sodium Potassium Chloride Carbon Dioxide BUN Creatinine Glucose POC Glucose 69 L Lactic Acid Calcium Magnesium Iron TIBC Ferritin AST ALT Lactate Dehydrogenase Troponin T C-Reactive Protein Total Protein Albumin Cholesterol LDL Cholesterol Direct HDL Cholesterol Urine WBC (Auto) Vancomycin Trough 23.2 H Coronavirus (PCR) Crossmatch 07/05/19 07/06/19 07/06/19 19:58 00:27 00:27 WBC RBC Hgb Hct MCV MCH RDW Plt Count Seg Neuts % (Manual) Lymphocytes % (Manual) Seg Neutrophils # Man Lymphocytes # (Manual) PT INR D-Dimer 1333.22 H ABG pH ABG pO2 ABG HCO3 ABG O2 Saturation ABG Base Excess ABG Hemoglobin Oxyhemoglobin Sodium 127 L Potassium Chloride Carbon Dioxide BUN Creatinine Glucose POC Glucose Lactic Acid Calcium Magnesium Iron TIBC Ferritin 977.1 H AST ALT Lactate Dehydrogenase Troponin T C-Reactive Protein Total Protein Albumin Cholesterol LDL Cholesterol Direct HDL Cholesterol Urine WBC (Auto) Vancomycin Trough Coronavirus (PCR) Crossmatch 07/06/19 07/06/19 07/06/19 00:27 02:00 02:56 WBC RBC Hgb Hct MCV MCH RDW Plt Count Seg Neuts % (Manual) Lymphocytes % (Manual) Seg Neutrophils # Man Lymphocytes # (Manual) PT INR D-Dimer ABG pH ABG pO2 70.3 L ABG HCO3 ABG O2 Saturation 94.8 L ABG Base Excess ABG Hemoglobin 8.0 L Oxyhemoglobin 93.2 L Sodium Potassium Chloride Carbon Dioxide BUN Creatinine Glucose POC Glucose 117 H Lactic Acid Calcium Magnesium Iron TIBC Ferritin AST ALT Lactate Dehydrogenase 236 H Troponin T C-Reactive Protein 22.90 H Total Protein Albumin Cholesterol LDL Cholesterol Direct HDL Cholesterol Urine WBC (Auto) Vancomycin Trough Coronavirus (PCR) Crossmatch 07/06/19 07/06/19 07/06/19 03:49 03:49 07:40 WBC 38.8 H RBC 2.51 L Hgb 6.7 L Hct 19.9 L* MCV 79 L MCH 27 L RDW 19.2 H Plt Count Seg Neuts % (Manual) 90.5 H Lymphocytes % (Manual) 1.0 L Seg Neutrophils # Man 35.1 H Lymphocytes # (Manual) 0.4 L PT INR D-Dimer ABG pH ABG pO2 ABG HCO3 ABG O2 Saturation ABG Base Excess ABG Hemoglobin Oxyhemoglobin Sodium 131 L Potassium Chloride 96.9 L Carbon Dioxide 18 L BUN 23 H Creatinine 0.5 L Glucose POC Glucose Lactic Acid Calcium 8.0 L Magnesium Iron TIBC Ferritin AST ALT Lactate Dehydrogenase Troponin T C-Reactive Protein Total Protein Albumin Cholesterol LDL Cholesterol Direct HDL Cholesterol Urine WBC (Auto) Vancomycin Trough Coronavirus (PCR) Crossmatch See Detail
[2019-07-06] MEDS ORDERED: NORepinephrine/NS 4 MG-250 ML 4 MG/250 ML BAG IV ONE (12:46)
[2019-07-06] MEDS: NORepinephrine/NS 4 MG-250 ML 4 MG/250 ML BAG IV SCH (12:50)
[2019-07-06] MEDS: FAMOTIDINE 20 MG/2 ML INJ IV SCH ×2 (13:17→23:38)
[2019-07-06] MEDS: ASPIRIN 81 MG TAB CHEW PO SCH (13:17)
[2019-07-06] MEDS: SODIUM BICARBONATE 650 MG TAB PO SCH ×3 (13:17→23:38)
[2019-07-06] MEDS: levETIRAcetam 750 MG in DEXTROSE 5% IN WATER 100 ML IV SCH (13:23)
--- NOTE | 2019-07-06 14:29 | Progress Note ---
Assessment and Plan COVid positive- Acute respiratory Failure with Hypoxia - Due to bilateral PNA with COVID 19 infection. -pulmonary critical care following -Continue scheduled labs, antibiotics, mechanical ventilation, supportive care as needed Bilateral PNA with severe sepsis - see above -ID following, started on Plaquenil -Also continue vancomycin and cefepime -Ordered for T-tube culture Acute metabolic encephalopathy -Likely due to respiratory arrest and severe sepsis - Hold Hyoscamine. monitor Troponins. -CT head unremarkable Shock, likely septic: Lactic acidosis -Levophed as needed, continue IV fluid COPD with exacerbation -Likely due to COVID-19 pneumonia -Continue IV antibiotics, Plaquenil, scheduled nebs Anemia, Microcytic - check iron, TIBC - monitor H&H, transfuse one unit Pressure Ulcers - buttocks, right lateral foot area - present upon admission - wound care consulted Hyponatremia, continue IV fluid DM type 2 - Accuchecks with sliding scale insulin HTN Essential, now hypotensive -relatively low BP - on IVF. monitor Seizure D/o/CVA/immobility/BIpolar D/o/SCZ chronic medical conditions - continue meds patient is DNR- Called today and verified information Guarded prognosis, patient is critically ill 07/04: COVID +ve, start on plaquinil, called no answer 07/05: transfuse one unit PRBC, Hb dropped to ~6, called and updated The high probability of a clinically significant, sudden or life threatening deterioration of the [respiratory, CVS, [employer]] system(s) required my full and direct attention, intervention and personal management. The aggregate critical care time was [32] minutes. This time is in addition to time spent performing reported procedures but includes the following: [x] Data Review and interpretation [x] Patient assessment and monitoring of vital signs [x] Documentation [x] Medication orders and management Subjective Date of service: 07/06/19 Principal diagnosis: Bilateral pneumonia, severe sepsis with septic shock, encephalopathy Interval history: Patient seen and examined. Medical records and medication list reviewed. No acute event overnight noted by the RN. Patient is positive for COVID-19. updated patient's today Discussed plan of care at bedside with patient's RN. PUI?: No COVID19: Positive Objective - Exam Narrative Exam: General appearance: sedated on ventilator, intubated, other (emaciated) EENT: ATNC, other (pupils equal) Neck: Present: trachea midline Respiratory: Clear to Ascultation Heart: regular, S1S2, no murmurs Gastrointestinal: Present: normoactive bowel sounds, other (PEG tube noted). Absent: tenderness Integumentary: ulcer (both feet) Neurologic: other (not responding) Musculoskeletal: Present: other (trace ankle edema) - Constitutional Vitals: Vital Signs - 12hr 07/06/19 07/06/19 07/06/19 03:00 03:19 04:00 Temperature Pulse Rate 131 H 134 H 130 H Respiratory 24 24 Rate Blood Pressure 128/62 130/65 118/57 O2 Sat by Pulse 96 96 96 Oximetry 07/06/19 07/06/19 07/06/19 05:00 06:00 06:15 Temperature 99.8 F H Pulse Rate 130 H 132 H Respiratory 25 H 24 Rate Blood Pressure 121/66 123/67 O2 Sat by Pulse 96 97 Oximetry 07/06/19 07/06/19 07/06/19 07:00 08:00 08:22 Temperature Pulse Rate 135 H 132 H 135 H Respiratory 28 H 26 H Rate Blood Pressure 117/63 120/58 120/58 O2 Sat by Pulse 93 95 95 Oximetry 07/06/19 07/06/19 07/06/19 09:00 10:00 11:00 Temperature Pulse Rate 136 H 134 H 134 H Respiratory 24 26 H 27 H Rate Blood Pressure 120/57 128/64 124/68 O2 Sat by Pulse 95 97 96 Oximetry 07/06/19 07/06/19 07/06/19 12:00 12:20 12:25 Temperature 101.4 F H 101.3 F H Pulse Rate 136 H 136 H 136 H Respiratory 27 H 27 H 26 H Rate Blood Pressure 124/65 120/62 125/61 O2 Sat by Pulse 95 96 96 Oximetry 07/06/19 07/06/19 07/06/19 12:30 12:35 12:40 Temperature 100.7 F H 99.9 F H 100.9 F H Pulse Rate 136 H 134 H 136 H Respiratory 18 26 H 28 H Rate Blood Pressure 134/68 132/62 124/61 O2 Sat by Pulse 96 97 96 Oximetry 07/06/19 13:00 Temperature Pulse Rate 134 H Respiratory 20 Rate Blood Pressure 126/62 O2 Sat by Pulse 97 Oximetry - Labs CBC & Chem 7: 07/07/19 05:34 07/07/19 05:34 Labs: Abnormal lab results 07/05/19 07/05/19 07/05/19 Range/Units 16:15 17:54 19:58 WBC (4.5-11.0) K/mm3 RBC (3.65-5.03) M/mm3 Hgb (11.8-15.2) gm/dl Hct (35.5-45.6) % MCV (84-94) fl MCH (28-32) pg RDW (13.2-15.2) % Seg Neuts % (Manual) (40.0-70.0) % Lymphocytes % (Manual) (13.4-35.0) % Seg Neutrophils # Man (1.8-7.7) K/mm3 Lymphocytes # (Manual) (1.2-5.4) K/mm3 D-Dimer (0-234) ng/mlDDU ABG pO2 (80.0-90.0) mm Hg ABG O2 Saturation (95.0-99.0) % ABG Hemoglobin (14.0-18.0) gm/dl Oxyhemoglobin (95.0-99.0) % Sodium 127 L (137-145) mmol/L Chloride (98-107) mmol/L Carbon Dioxide (22-30) mmol/L BUN (9-20) mg/dL Creatinine (0.8-1.5) mg/dL POC Glucose 69 L (70-105) Calcium (8.4-10.2) mg/dL Ferritin (13.0-400.0) ng/mL Lactate Dehydrogenase (91-180) units/L C-Reactive Protein (0.00-1.30) mg/dL Vancomycin Trough 23.2 H (5.0-20.0) ug/mL Crossmatch 07/06/19 07/06/19 07/06/19 Range/Units 00:27 00:27 00:27 WBC (4.5-11.0) K/mm3 RBC (3.65-5.03) M/mm3 Hgb (11.8-15.2) gm/dl Hct (35.5-45.6) % MCV (84-94) fl MCH (28-32) pg RDW (13.2-15.2) % Seg Neuts % (Manual) (40.0-70.0) % Lymphocytes % (Manual) (13.4-35.0) % Seg Neutrophils # Man (1.8-7.7) K/mm3 Lymphocytes # (Manual) (1.2-5.4) K/mm3 D-Dimer 1333.22 H (0-234) ng/mlDDU ABG pO2 (80.0-90.0) mm Hg ABG O2 Saturation (95.0-99.0) % ABG Hemoglobin (14.0-18.0) gm/dl Oxyhemoglobin (95.0-99.0) % Sodium (137-145) mmol/L Chloride (98-107) mmol/L Carbon Dioxide (22-30) mmol/L BUN (9-20) mg/dL Creatinine (0.8-1.5) mg/dL POC Glucose (70-105) Calcium (8.4-10.2) mg/dL Ferritin 977.1 H (13.0-400.0) ng/mL Lactate Dehydrogenase 236 H (91-180) units/L C-Reactive Protein 22.90 H (0.00-1.30) mg/dL Vancomycin Trough (5.0-20.0) ug/mL Crossmatch 07/06/19 07/06/19 07/06/19 Range/Units 02:00 02:56 03:49 WBC 38.8 H (4.5-11.0) K/mm3 RBC 2.51 L (3.65-5.03) M/mm3 Hgb 6.7 L (11.8-15.2) gm/dl Hct 19.9 L* (35.5-45.6) % MCV 79 L (84-94) fl MCH 27 L (28-32) pg RDW 19.2 H (13.2-15.2) % Seg Neuts % (Manual) 90.5 H (40.0-70.0) % Lymphocytes % (Manual) 1.0 L (13.4-35.0) % Seg Neutrophils # Man 35.1 H (1.8-7.7) K/mm3 Lymphocytes # (Manual) 0.4 L (1.2-5.4) K/mm3 D-Dimer (0-234) ng/mlDDU ABG pO2 70.3 L (80.0-90.0) mm Hg ABG O2 Saturation 94.8 L (95.0-99.0) % ABG Hemoglobin 8.0 L (14.0-18.0) gm/dl Oxyhemoglobin 93.2 L (95.0-99.0) % Sodium (137-145) mmol/L Chloride (98-107) mmol/L Carbon Dioxide (22-30) mmol/L BUN (9-20) mg/dL Creatinine (0.8-1.5) mg/dL POC Glucose 117 H (70-105) Calcium (8.4-10.2) mg/dL Ferritin (13.0-400.0) ng/mL Lactate Dehydrogenase (91-180) units/L C-Reactive Protein (0.00-1.30) mg/dL Vancomycin Trough (5.0-20.0) ug/mL Crossmatch 07/06/19 07/06/19 Range/Units 03:49 07:40 WBC (4.5-11.0) K/mm3 RBC (3.65-5.03) M/mm3 Hgb (11.8-15.2) gm/dl Hct (35.5-45.6) % MCV (84-94) fl MCH (28-32) pg RDW (13.2-15.2) % Seg Neuts % (Manual) (40.0-70.0) % Lymphocytes % (Manual) (13.4-35.0) % Seg Neutrophils # Man (1.8-7.7) K/mm3 Lymphocytes # (Manual) (1.2-5.4) K/mm3 D-Dimer (0-234) ng/mlDDU ABG pO2 (80.0-90.0) mm Hg ABG O2 Saturation (95.0-99.0) % ABG Hemoglobin (14.0-18.0) gm/dl Oxyhemoglobin (95.0-99.0) % Sodium 131 L (137-145) mmol/L Chloride 96.9 L (98-107) mmol/L Carbon Dioxide 18 L (22-30) mmol/L BUN 23 H (9-20) mg/dL Creatinine 0.5 L (0.8-1.5) mg/dL POC Glucose (70-105) Calcium 8.0 L (8.4-10.2) mg/dL Ferritin (13.0-400.0) ng/mL Lactate Dehydrogenase (91-180) units/L C-Reactive Protein (0.00-1.30) mg/dL Vancomycin Trough (5.0-20.0) ug/mL Crossmatch See Detail
--- NOTE | 2019-07-06 15:39 | Event Note ---
Date: 07/06/19 called and updated patient's clinical condition stated that patient is very critical with very poor prognosis voiced understanding and expressed to keep his code status as DNR
[2019-07-06 22:53] LABS: Hematocrit 23.1 % (35.5-45.6); Hemoglobin 7.9 gm/dl (11.8-15.2)
[2019-07-06] MEDS: VANCOMYCIN 1,500 MG in SODIUM CHLORIDE 0.9% 500 ML 500 ML IV SCH (23:40)
--- NOTE | 2019-07-07 01:31 | XRay Report ---
CHEST 1 VIEW INDICATION / CLINICAL INFORMATION: follow up respiratory failure. COMPARISON: 07/06/2019 FINDINGS: SUPPORT DEVICES: Interval removal of NG tube. ET tube remains in stable and satisfactory position. HEART / MEDIASTINUM: No significant abnormality. LUNGS / PLEURA: There is diffuse bilateral consolidation of the lung parenchyma, consistent with franchesca re bilateral pneumonia.. There is slight sparing of the left lung apex. No pneumothorax. The diffuse bilateral consolidation shows slight progression since the last chest radiograph. ADDITIONAL FINDINGS: No significant additional findings. IMPRESSION: 1. Marked bilateral pulmonary consolidation, slightly worse compared to the chest radiograph, 07/06/19 Signer Name: Amrita Garcia MD Signed: 07/07/2019 1:26 AM Workstation Name: [id number]
[2019-07-07] MEDS: INSULIN LISPRO 100 UNIT/ML SUB-Q SCH ×4 (02:00→18:06)
[2019-07-07 05:00] LABS: ABG Base Excess -1.8 mmol/L (-2.0-3.0); ABG HCO3 22.6 mmol/L (20.0-26.0); ABG Methemoglobin 0.5 % (0.0-1.5); ABG Oxygen Saturation 92.2 % (95.0-99.0); ABG PCO2 36.5 mm Hg; ABG PH 7.409 pH Units (7.350-7.450); ABG PO2 65.8 mm Hg (80.0-90.0)
[2019-07-07] MEDS: CEFEPIME/NS 2 GM/100 ML 2 GM/100 ML BAG IV SCH ×3 (06:12→22:04)
[2019-07-07 06:16] LABS: Hematocrit 24.2 % (35.5-45.6); Hemoglobin 8.1 gm/dl (11.8-15.2); Mean Corpuscular HGB Conc 33 % (32-34); Mean Corpuscular Volume 81 fl (84-94); Platelet Count 189 K/mm3 (140-440)
[2019-07-07 06:18] LABS: BUN/Creatinine Ratio 45; Blood Urea Nitrogen 27 mg/dL (9-20); Hemolysis Index 12
[2019-07-07 06:20] LABS: Red Cell Distribution Width 20.6 % (13.2-15.2)
[2019-07-07 07:01] LABS: Band Neutrophils # (Manual) 1.6 K/mm3; Basophils % (Manual) 0 % (0.0-1.8); Monocytes % (Manual) 0 % (0.0-7.3); Total Cells Counted 100
[2019-07-07 07:02] LABS: Anisocytosis 1+; Burr Cells Few; Ovalocytes Few; Platelet Estimate Consistent w Auto; Schistocytes Few; Spherocytes Few
[2019-07-07] MEDS ORDERED: POTASSIUM CHLORIDE 20 MEQ PACKET FEEDTUBE ONE (07:15)
[2019-07-07] MEDS: SODIUM BICARBONATE 650 MG TAB PO SCH ×3 (09:49→19:41)
[2019-07-07] MEDS: HYDROXYCHLOROQUINE 200 MG TAB PO SCH ×2 (09:49→22:05)
[2019-07-07] MEDS: levETIRAcetam 500 MG/5 ML ORAL LIQD FEEDTUBE SCH ×2 (09:49→22:04)
[2019-07-07] MEDS: FAMOTIDINE 20 MG/2 ML INJ IV SCH ×2 (09:49→22:05)
[2019-07-07] MEDS: ASPIRIN 81 MG TAB CHEW PO SCH (09:49)
[2019-07-07] MEDS: FOLIC ACID 1 MG TAB PO SCH (09:50)
--- NOTE | 2019-07-07 11:52 | Progress Note ---
Assessment and Plan COVid positive- Acute respiratory Failure with Hypoxia - Due to bilateral PNA with COVID 19 infection. -pulmonary critical care following -Continue scheduled labs, antibiotics, mechanical ventilation, supportive care as needed Bilateral PNA with severe sepsis - see above -ID following, started on Plaquenil -Also continue vancomycin and cefepime -Ordered for T-tube culture Acute metabolic encephalopathy -Likely due to respiratory arrest and severe sepsis - Hold Hyoscamine. monitor Troponins. -CT head unremarkable Shock, likely septic: Lactic acidosis -Levophed as needed, continue IV fluid COPD with exacerbation -Likely due to COVID-19 pneumonia -Continue IV antibiotics, Plaquenil, scheduled nebs Anemia, Microcytic - check iron, TIBC - monitor H&H, transfuse one unit Pressure Ulcers - buttocks, right lateral foot area - present upon admission - wound care consulted Hyponatremia, continue IV fluid DM type 2 - Accuchecks with sliding scale insulin HTN Essential, now hypotensive -relatively low BP - on IVF. monitor Seizure D/o/CVA/immobility/BIpolar D/o/SCZ chronic medical conditions - continue meds patient is DNR- Called and verified information Guarded prognosis, patient is critically ill 07/04: COVID +ve, start on plaquinil, called no answer 07/05: transfuse one unit PRBC, Hb dropped to ~6, called and updated 07/06; H&H stable, serum chemistry improved. On mechanical ventilation with high inflammatory markers. Continue Plaquenil and empiric antibiotics. ID following, prognosis remains guarded and extremely poor. The high probability of a clinically significant, sudden or life threatening deterioration of the [respiratory, CVS, MEDICAL ASSISTANT] system(s) required my full and direct attention, intervention and personal management. The aggregate critical care time was [32] minutes. This time is in addition to time spent performing reported procedures but includes the following: [x] Data Review and interpretation [x] Patient assessment and monitoring of vital signs [x] Documentation [x] Medication orders and management Subjective Date of service: 07/07/19 Principal diagnosis: Bilateral pneumonia, severe sepsis with septic shock, encephalopathy Interval history: Patient seen and examined. Medical records and medication list reviewed. No acute event overnight noted by the RN. Patient is positive for COVID-19. Patient remains intubated on mechanical ventilation Discussed plan of care at bedside with patient's RN. Objective - Exam Narrative Exam: General appearance: sedated on ventilator, intubated, other (emaciated) EENT: ATNC, other (pupils equal) Neck: Present: trachea midline Respiratory: Clear to Ascultation Heart: regular, S1S2, no murmurs Gastrointestinal: Present: normoactive bowel sounds, other (PEG tube noted). Absent: tenderness Integumentary: ulcer (both feet) Neurologic: other (not responding) Musculoskeletal: Present: other (trace ankle edema) - Constitutional Vitals: Vital Signs - 12hr 07/06/19 07/06/19 07/07/19 23:52 23:53 00:05 Temperature 98.6 F Pulse Rate 118 H 120 H Pulse Rate [ From Monitor] Pulse Rate [ None] Respiratory Rate Blood Pressure 108/58 O2 Sat by Pulse 97 Oximetry 07/07/19 07/07/19 07/07/19 00:30 00:45 01:00 Temperature Pulse Rate Pulse Rate [ From Monitor] Pulse Rate [ 115 H 116 H 115 H None] Respiratory 24 23 25 H Rate Blood Pressure 105/60 107/63 105/57 O2 Sat by Pulse 95 96 97 Oximetry 07/07/19 07/07/19 07/07/19 01:08 01:15 01:30 Temperature Pulse Rate 116 H 114 H 113 H Pulse Rate [ From Monitor] Pulse Rate [ None] Respiratory 25 H 25 H 25 H Rate Blood Pressure 100/57 101/57 O2 Sat by Pulse 95 96 97 Oximetry 07/07/19 07/07/19 07/07/19 01:45 02:00 02:15 Temperature Pulse Rate 114 H 114 H 114 H Pulse Rate [ From Monitor] Pulse Rate [ None] Respiratory 25 H 25 H 25 H Rate Blood Pressure 108/68 109/67 106/61 O2 Sat by Pulse 97 95 96 Oximetry 07/07/19 07/07/19 07/07/19 02:30 02:45 03:00 Temperature Pulse Rate 116 H 114 H 117 H Pulse Rate [ From Monitor] Pulse Rate [ None] Respiratory 25 H 25 H 25 H Rate Blood Pressure 118/62 109/67 109/58 O2 Sat by Pulse 97 96 97 Oximetry 07/07/19 07/07/19 07/07/19 03:15 03:30 03:45 Temperature Pulse Rate 117 H 115 H 118 H Pulse Rate [ From Monitor] Pulse Rate [ None] Respiratory 22 25 H 25 H Rate Blood Pressure 122/56 120/65 118/64 O2 Sat by Pulse 98 96 97 Oximetry 07/07/19 07/07/19 07/07/19 03:50 04:00 04:15 Temperature 96.8 F L Pulse Rate 120 H 117 H Pulse Rate [ From Monitor] Pulse Rate [ None] Respiratory 25 H 25 H Rate Blood Pressure 123/66 110/61 O2 Sat by Pulse 97 96 Oximetry 07/07/19 07/07/19 07/07/19 04:30 04:45 04:53 Temperature Pulse Rate 118 H 120 H 118 H Pulse Rate [ From Monitor] Pulse Rate [ None] Respiratory 25 H 26 H Rate Blood Pressure 110/54 123/66 110/54 O2 Sat by Pulse 96 96 96 Oximetry 07/07/19 07/07/19 07/07/19 05:00 05:15 05:30 Temperature Pulse Rate 119 H 121 H 121 H Pulse Rate [ From Monitor] Pulse Rate [ None] Respiratory 25 H 28 H 28 H Rate Blood Pressure 115/52 103/52 121/61 O2 Sat by Pulse 96 95 95 Oximetry 07/07/19 07/07/19 07/07/19 05:45 06:00 06:15 Temperature Pulse Rate 118 H 120 H 119 H Pulse Rate [ From Monitor] Pulse Rate [ None] Respiratory 25 H 27 H 26 H Rate Blood Pressure 115/52 123/59 123/59 O2 Sat by Pulse 96 94 95 Oximetry 07/07/19 07/07/19 07/07/19 06:30 06:45 07:01 Temperature Pulse Rate 121 H 121 H 121 H Pulse Rate [ From Monitor] Pulse Rate [ None] Respiratory 27 H 27 H 26 H Rate Blood Pressure 124/64 124/64 126/63 O2 Sat by Pulse 95 95 96 Oximetry 07/07/19 07/07/19 07/07/19 07:15 07:31 07:45 Temperature Pulse Rate 123 H 126 H 125 H Pulse Rate [ From Monitor] Pulse Rate [ None] Respiratory 27 H 27 H 25 H Rate Blood Pressure 126/63 129/61 129/61 O2 Sat by Pulse 95 97 97 Oximetry 07/07/19 07/07/19 07/07/19 08:00 08:15 08:31 Temperature 97.4 F L Pulse Rate 125 H 126 H 128 H Pulse Rate [ 130 H From Monitor] Pulse Rate [ None] Respiratory 26 H 28 H 27 H Rate Blood Pressure 135/66 135/66 135/67 O2 Sat by Pulse 96 96 95 Oximetry 07/07/19 07/07/19 07/07/19 08:45 09:01 09:15 Temperature Pulse Rate 128 H 128 H 129 H Pulse Rate [ From Monitor] Pulse Rate [ None] Respiratory 29 H 28 H 24 Rate Blood Pressure 135/67 134/68 134/68 O2 Sat by Pulse 96 96 96 Oximetry 07/07/19 07/07/19 07/07/19 09:31 09:45 09:55 Temperature Pulse Rate 128 H 132 H 132 H Pulse Rate [ From Monitor] Pulse Rate [ None] Respiratory 25 H 27 H Rate Blood Pressure 133/71 133/71 133/63 O2 Sat by Pulse 95 95 94 Oximetry 07/07/19 07/07/19 10:01 11:17 Temperature 98.7 F Pulse Rate 132 H Pulse Rate [ From Monitor] Pulse Rate [ None] Respiratory 27 H Rate Blood Pressure 135/66 O2 Sat by Pulse 95 Oximetry - Labs CBC & Chem 7: 07/07/19 22:00 07/07/19 05:34 Labs: Abnormal lab results 07/06/19 07/06/19 07/06/19 Range/Units 07:40 12:38 14:39 WBC (4.5-11.0) K/mm3 RBC (3.65-5.03) M/mm3 Hgb (11.8-15.2) gm/dl Hct (35.5-45.6) % MCV (84-94) fl MCH (28-32) pg RDW (13.2-15.2) % Seg Neuts % (Manual) (40.0-70.0) % Lymphocytes % (Manual) (13.4-35.0) % Seg Neutrophils # Man (1.8-7.7) K/mm3 Lymphocytes # (Manual) (1.2-5.4) K/mm3 ABG pO2 (80.0-90.0) mm Hg ABG O2 Saturation (95.0-99.0) % ABG Hemoglobin (14.0-18.0) gm/dl Oxyhemoglobin (95.0-99.0) % Sodium (137-145) mmol/L Potassium (3.6-5.0) mmol/L Carbon Dioxide (22-30) mmol/L BUN (9-20) mg/dL Creatinine (0.8-1.5) mg/dL Glucose (75-100) mg/dL POC Glucose 112 H 111 H (70-105) Calcium (8.4-10.2) mg/dL Crossmatch See Detail 07/06/19 07/06/19 07/06/19 Range/Units 20:00 22:43 22:56 WBC (4.5-11.0) K/mm3 RBC (3.65-5.03) M/mm3 Hgb 7.9 L (11.8-15.2) gm/dl Hct 23.1 L (35.5-45.6) % MCV (84-94) fl MCH (28-32) pg RDW (13.2-15.2) % Seg Neuts % (Manual) (40.0-70.0) % Lymphocytes % (Manual) (13.4-35.0) % Seg Neutrophils # Man (1.8-7.7) K/mm3 Lymphocytes # (Manual) (1.2-5.4) K/mm3 ABG pO2 (80.0-90.0) mm Hg ABG O2 Saturation (95.0-99.0) % ABG Hemoglobin (14.0-18.0) gm/dl Oxyhemoglobin (95.0-99.0) % Sodium (137-145) mmol/L Potassium (3.6-5.0) mmol/L Carbon Dioxide (22-30) mmol/L BUN (9-20) mg/dL Creatinine (0.8-1.5) mg/dL Glucose (75-100) mg/dL POC Glucose 140 H 122 H (70-105) Calcium (8.4-10.2) mg/dL Crossmatch 07/07/19 07/07/19 07/07/19 Range/Units 02:20 04:35 05:27 WBC (4.5-11.0) K/mm3 RBC (3.65-5.03) M/mm3 Hgb (11.8-15.2) gm/dl Hct (35.5-45.6) % MCV (84-94) fl MCH (28-32) pg RDW (13.2-15.2) % Seg Neuts % (Manual) (40.0-70.0) % Lymphocytes % (Manual) (13.4-35.0) % Seg Neutrophils # Man (1.8-7.7) K/mm3 Lymphocytes # (Manual) (1.2-5.4) K/mm3 ABG pO2 65.8 L (80.0-90.0) mm Hg ABG O2 Saturation 92.2 L (95.0-99.0) % ABG Hemoglobin 8.3 L (14.0-18.0) gm/dl Oxyhemoglobin 90.6 L (95.0-99.0) % Sodium (137-145) mmol/L Potassium (3.6-5.0) mmol/L Carbon Dioxide (22-30) mmol/L BUN (9-20) mg/dL Creatinine (0.8-1.5) mg/dL Glucose (75-100) mg/dL POC Glucose 149 H 132 H (70-105) Calcium (8.4-10.2) mg/dL Crossmatch 07/07/19 07/07/19 Range/Units 05:34 05:34 WBC 23.1 H (4.5-11.0) K/mm3 RBC 3.00 L (3.65-5.03) M/mm3 Hgb 8.1 L (11.8-15.2) gm/dl Hct 24.2 L (35.5-45.6) % MCV 81 L (84-94) fl MCH 27 L (28-32) pg RDW 20.6 H (13.2-15.2) % Seg Neuts % (Manual) 90.0 H (40.0-70.0) % Lymphocytes % (Manual) 2.0 L (13.4-35.0) % Seg Neutrophils # Man 20.8 H (1.8-7.7) K/mm3 Lymphocytes # (Manual) 0.5 L (1.2-5.4) K/mm3 ABG pO2 (80.0-90.0) mm Hg ABG O2 Saturation (95.0-99.0) % ABG Hemoglobin (14.0-18.0) gm/dl Oxyhemoglobin (95.0-99.0) % Sodium 135 L (137-145) mmol/L Potassium 3.3 L (3.6-5.0) mmol/L Carbon Dioxide 20 L (22-30) mmol/L BUN 27 H (9-20) mg/dL Creatinine 0.6 L (0.8-1.5) mg/dL Glucose 121 H (75-100) mg/dL POC Glucose (70-105) Calcium 8.0 L (8.4-10.2) mg/dL Crossmatch
--- NOTE | 2019-07-07 12:29 | Progress Note ---
Assessment and Plan 1. Hypoantremia: Suspect SIADH. Sodium level is gradually improving. Sodium bicarbonate through the PEG tube. Monitor Sodium level. 2. FEN: Metabolic acidosis, improving on Sodium bicarbonate, monitor. Hyperkalemia, improved, monitor. Monitor volume status and lytes. 3. Acute hypoxic respiratory failure: Currently intubated and on vent. Pulmonary following. 4. Severe Sepsis, POA. Followed by ID. 5. Severe COVID-19 pneumonia. 6. Shock: On Levophed. 7. Microcytic anemia, POA: Monitor. 8. Diabetes mellitus. 9. COPD. 10. Encephalopathy, POA: Metabolic. - Subjective history: Patient was only seen from outside the glass door to prevent exposure to COVID- 19. Also the PPE is either not available or very limited. - General Appearance General appearance: intubated on ventilator HEENT: not examined Neck: not examined Respiratory: not examined Heart: not examined Gastrointestinal: not examined Integumentary: not examined Neurologic: not examined Ext: not examined Subjective Date of service: 07/07/19 Principal diagnosis: Bilateral pneumonia, severe sepsis with septic shock, encephalopathy Objective - Vital Signs Vital signs: Vital Signs - 12hr 07/07/19 07/07/19 07/07/19 00:30 00:45 01:00 Temperature Pulse Rate Pulse Rate [ From Monitor] Pulse Rate [ 115 H 116 H 115 H None] Respiratory 24 23 25 H Rate Blood Pressure 105/60 107/63 105/57 O2 Sat by Pulse 95 96 97 Oximetry 07/07/19 07/07/19 07/07/19 01:08 01:15 01:30 Temperature Pulse Rate 116 H 114 H 113 H Pulse Rate [ From Monitor] Pulse Rate [ None] Respiratory 25 H 25 H 25 H Rate Blood Pressure 100/57 101/57 O2 Sat by Pulse 95 96 97 Oximetry 07/07/19 07/07/19 07/07/19 01:45 02:00 02:15 Temperature Pulse Rate 114 H 114 H 114 H Pulse Rate [ From Monitor] Pulse Rate [ None] Respiratory 25 H 25 H 25 H Rate Blood Pressure 108/68 109/67 106/61 O2 Sat by Pulse 97 95 96 Oximetry 07/07/19 07/07/19 07/07/19 02:30 02:45 03:00 Temperature Pulse Rate 116 H 114 H 117 H Pulse Rate [ From Monitor] Pulse Rate [ None] Respiratory 25 H 25 H 25 H Rate Blood Pressure 118/62 109/67 109/58 O2 Sat by Pulse 97 96 97 Oximetry 07/07/19 07/07/19 07/07/19 03:15 03:30 03:45 Temperature Pulse Rate 117 H 115 H 118 H Pulse Rate [ From Monitor] Pulse Rate [ None] Respiratory 22 25 H 25 H Rate Blood Pressure 122/56 120/65 118/64 O2 Sat by Pulse 98 96 97 Oximetry 07/07/19 07/07/19 07/07/19 03:50 04:00 04:15 Temperature 96.8 F L Pulse Rate 120 H 117 H Pulse Rate [ From Monitor] Pulse Rate [ None] Respiratory 25 H 25 H Rate Blood Pressure 123/66 110/61 O2 Sat by Pulse 97 96 Oximetry 07/07/19 07/07/19 07/07/19 04:30 04:45 04:53 Temperature Pulse Rate 118 H 120 H 118 H Pulse Rate [ From Monitor] Pulse Rate [ None] Respiratory 25 H 26 H Rate Blood Pressure 110/54 123/66 110/54 O2 Sat by Pulse 96 96 96 Oximetry 07/07/19 07/07/19 07/07/19 05:00 05:15 05:30 Temperature Pulse Rate 119 H 121 H 121 H Pulse Rate [ From Monitor] Pulse Rate [ None] Respiratory 25 H 28 H 28 H Rate Blood Pressure 115/52 103/52 121/61 O2 Sat by Pulse 96 95 95 Oximetry 07/07/19 07/07/19 07/07/19 05:45 06:00 06:15 Temperature Pulse Rate 118 H 120 H 119 H Pulse Rate [ From Monitor] Pulse Rate [ None] Respiratory 25 H 27 H 26 H Rate Blood Pressure 115/52 123/59 123/59 O2 Sat by Pulse 96 94 95 Oximetry 07/07/19 07/07/19 07/07/19 06:30 06:45 07:01 Temperature Pulse Rate 121 H 121 H 121 H Pulse Rate [ From Monitor] Pulse Rate [ None] Respiratory 27 H 27 H 26 H Rate Blood Pressure 124/64 124/64 126/63 O2 Sat by Pulse 95 95 96 Oximetry 07/07/19 07/07/19 07/07/19 07:15 07:31 07:45 Temperature Pulse Rate 123 H 126 H 125 H Pulse Rate [ From Monitor] Pulse Rate [ None] Respiratory 27 H 27 H 25 H Rate Blood Pressure 126/63 129/61 129/61 O2 Sat by Pulse 95 97 97 Oximetry 07/07/19 07/07/19 07/07/19 08:00 08:15 08:31 Temperature 97.4 F L Pulse Rate 125 H 126 H 128 H Pulse Rate [ 130 H From Monitor] Pulse Rate [ None] Respiratory 26 H 28 H 27 H Rate Blood Pressure 135/66 135/66 135/67 O2 Sat by Pulse 96 96 95 Oximetry 07/07/19 07/07/19 07/07/19 08:45 09:01 09:15 Temperature Pulse Rate 128 H 128 H 129 H Pulse Rate [ From Monitor] Pulse Rate [ None] Respiratory 29 H 28 H 24 Rate Blood Pressure 135/67 134/68 134/68 O2 Sat by Pulse 96 96 96 Oximetry 07/07/19 07/07/19 07/07/19 09:31 09:45 09:55 Temperature Pulse Rate 128 H 132 H 132 H Pulse Rate [ From Monitor] Pulse Rate [ None] Respiratory 25 H 27 H Rate Blood Pressure 133/71 133/71 133/63 O2 Sat by Pulse 95 95 94 Oximetry 07/07/19 07/07/19 07/07/19 10:01 10:15 10:30 Temperature Pulse Rate 132 H 129 H 129 H Pulse Rate [ From Monitor] Pulse Rate [ None] Respiratory 27 H 26 H 25 H Rate Blood Pressure 135/66 135/66 127/62 O2 Sat by Pulse 95 95 96 Oximetry 07/07/19 07/07/19 07/07/19 10:45 11:00 11:15 Temperature Pulse Rate 130 H 129 H 128 H Pulse Rate [ From Monitor] Pulse Rate [ None] Respiratory 26 H 26 H 26 H Rate Blood Pressure 127/62 131/64 124/40 O2 Sat by Pulse 94 95 95 Oximetry 07/07/19 07/07/19 07/07/19 11:17 11:31 11:45 Temperature 98.7 F Pulse Rate 130 H 129 H Pulse Rate [ From Monitor] Pulse Rate [ None] Respiratory 24 26 H Rate Blood Pressure 133/63 133/63 O2 Sat by Pulse 95 95 Oximetry - Lab 07/07/19 15:58 07/07/19 05:34 Most recent lab results ABG pH 7.409 pH Units (7.350-7.450) 07/07/19 04:35 ABG pCO2 36.5 mm Hg 07/07/19 04:35 ABG pO2 65.8 mm Hg (80.0-90.0) L 07/07/19 04:35 ABG HCO3 22.6 mmol/L (20.0-26.0) 07/07/19 04:35 ABG O2 Saturation 92.2 % (95.0-99.0) L 07/07/19 04:35 Calcium 8.0 mg/dL (8.4-10.2) L 07/07/19 05:34 Phosphorus 3.60 mg/dL (2.5-4.5) 07/05/19 04:00 Magnesium 1.70 mg/dL (1.7-2.3) 07/06/19 03:49 Medications & Allergies - Medications Allergies/Adverse Reactions: Allergies No Known Allergies Allergy (Unverified 09/09/16 16:29) Home Medications: Home Medications Medication Instructions Recorded Confirmed Last Taken Type Acetaminophen [Tylenol] 500 mg PO TID 07/04/19 07/04/19 Unknown History Albuterol Sulfate [Proair 90 mcg IH TID 07/04/19 07/04/19 Unknown History Digihaler] Amlodipine Besylate [Norvasc] 2.5 mg PO QDAY 07/04/19 07/04/19 Unknown History Aspirin [Aspirin BABY CHEW TAB] 81 mg PO QDAY 07/04/19 07/04/19 Unknown History Atorvastatin Calcium [Lipitor] 80 mg PO QDAY 07/04/19 07/04/19 Unknown History Benztropine Mesylate 0.5 mg PO QDAY 07/04/19 07/04/19 Unknown History Budesonide/Formoterol Fumarate 10.2 gm IH BID 07/04/19 07/04/19 Unknown History [Budesonide-Formoterol 160-4.5] Divalproex ER [DepaKOTE ER] 1,000 mg PO QDAY 07/04/19 07/04/19 Unknown History Docusate Sodium [Colace] 100 mg PO QDAY 07/04/19 07/04/19 Unknown History Folic Acid [Folvite] 1 mg PO QDAY 07/04/19 07/04/19 Unknown History Hydrophilic Ointment [Dermafix] 113 gm TP QDAY 07/04/19 07/04/19 Unknown History Losartan [Cozaar] 100 mg PO QDAY 07/04/19 07/04/19 Unknown History Metformin HCl [Metformin HCl ER] 500 mg PO QDAY 07/04/19 07/04/19 Unknown History Metoprolol Tartrate 25 mg PO BID 07/04/19 07/04/19 Unknown History Multivit with Minerals/Ginseng 1 each PO QDAY 07/04/19 07/04/19 Unknown History [Super Ginseng Multivit Cap] Quetiapine Fumarate [SEROquel Xr] 400 mg PO QHS 07/04/19 07/04/19 Unknown History Sertraline HCl [Zoloft] 100 mg PO QDAY 07/04/19 07/04/19 Unknown History Sildenafil Citrate [Viagra] 100 mg PO QDAY PRN 07/04/19 07/04/19 Unknown History Tamsulosin [Flomax] 0.4 mg PO QDAY 07/04/19 07/04/19 Unknown History Active Medications: Generic Name Dose Route Start Last Admin Trade Name Freq PRN Reason Stop Dose Admin Acetaminophen 650 mg 07/04/19 04:24 07/06/19 12:00 Tylenol PO 650 mg Q6H PRN Administration Pain MILD(1-3)/Fever >100.5/MURO Acetaminophen 650 mg 07/04/19 04:24 Tylenol MO Q6H PRN Pain MILD(1-3)/Fever >100.5/MURO Lipase/Protease/Amylase 1 each 07/04/19 10:[address] 10,500 Unit FEEDTUBE PRN PRN For Clogged Feeding Tube Aspirin 81 mg 07/05/19 10:00 07/07/19 09:49 Baby Aspirin PO 81 mg QDAY TAMMIE Administration Dextrose 50 ml 07/04/19 06:54 D50w (25gm) Syringe IV Q30MIN PRN Hypoglycemia Protocol Famotidine 20 mg 07/04/19 10:00 07/07/19 09:49 Pepcid IV 20 mg BID TAMMIE Administration Folic Acid 1 mg 07/05/19 10:00 07/07/19 09:50 Folvite PO 1 mg QDAY TAMMIE Administration Hydrophilic Ointment 1 applic 07/03/19 19:56 07/05/19 17:42 Vaseline Lip Therapy TP 1 applic Q2HR PRN Administration Dry Lips Hydroxychloroquine Sulfate 200 mg 07/06/19 10:00 07/07/19 09:49 Plaquenil PO 07/09/19 23:59 200 mg BID TAMMIE Administration Norepinephrine 4 mg in 250 mls @ 7.5 mls/hr 07/03/19 23:00 07/07/19 10:15 Levophed Drip 4 Mg/Ns 250 Ml IV 0 mcg/min TITR TAMMIE 0 mls/hr Titration Protocol 2 MCG/MIN Cefepime HCl 2 gm in 100 mls @ 200 mls/hr 07/04/19 06:00 07/07/19 06:12 Cefepime/Ns 2 Gm/100 Ml IV 200 mls/hr Q8HR TAMMIE Administration Protocol Vancomycin HCl 1,500 mg/ 530 mls @ 333.333 mls/hr 07/06/19 22:00 07/06/19 23:40 Sodium Chloride IV 333.333 mls/hr Q24H TAMMIE Administration Insulin Human Lispro 0 unit 07/07/19 12:00 Humalog SUB-Q Q6HR [facility] Protocol Levetiracetam 750 mg 07/06/19 11:00 07/07/19 09:49 Keppra FEEDTUBE 750 mg Q12HR TAMMIE Administration Morphine Sulfate 2 mg 07/04/19 04:24 Morphine IV Q4H PRN Pain, Moderate (4-6) Multi-Ingred Cream/Lotion/Oil/Oint 1 applic 07/03/19 19:56 07/05/19 13:19 Artificial Tears Ophth Oint OU 1 applic Q4HR PRN Administration Dry Eye(s) Naloxone HCl 0.1 mg 07/04/19 04:24 Naloxone IV Q2MIN PRN Res Rate </= 8 or 02 SAT < 92% Simple Syrup 15 ml 07/04/19 10:04 07/05/19 17:42 Simple Syrup FEEDTUBE 15 ml PRN PRN Administration Hypoglycemia Simple Syrup 30 ml 07/04/19 10:04 Simple Syrup FEEDTUBE PRN PRN Hypoglycemia Sodium Bicarbonate 325 mg 07/04/19 10:04 Sodium Bicarbonate FEEDTUBE PRN PRN For Clogged Feeding Tube Sodium Bicarbonate 650 mg 07/05/19 14:00 07/07/19 09:49 Sodium Bicarbonate PO 650 mg TID TAMMIE Administration Sodium Chloride 10 ml 07/04/19 10:00 07/07/19 09:50 Sodium Chloride Flush Syringe 10 Ml IV 10 ml BID TAMMIE Administration Sodium Chloride 10 ml 07/04/19 04:24 Sodium Chloride Flush Syringe 10 Ml IV PRN PRN LINE FLUSH
--- NOTE | 2019-07-07 16:05 | Progress Note ---
Assessment and Plan Acute hypoxemic respiratory failure on MVS Severe sepsis with Shock. Bilateral Pneumonia. PUI coronavirus-19 infection. Acute possibly on chronic encephalopathy. Oropharyngeal dysphagia. Anemia. Decubitus ulcers Diabetes type 2. Hypertension. Leukocytosis. Anemia that is microcytic. Elevated serum transaminases. [id number] metabolic acidosis. Lactic acidosis. Severe protein-calorie malnutrition - continue airborne and contact COVID-19 precautions - follow COVID-19 test results - PEG tube adjusted and no acute leakage (Pulled tilll almost taught and HUB readjusted) - continue wean Levophed for target MAP > 65 mmHg (weaned off Levophed) - continue empiric anti-infectives and de-escalate per ID recommendations - continue wound care per WCT - sedation prn for target RASS 0 to -1 - continue to wean supplemental oxygen for target O2 sat's > 90% acutely - Daily SAT's and SBT assessment as tolerated - VAP bundle addressed - continue lung protective strategies - continue bronchodilators with pulmonary hygiene per RT - wean per pulmonary driven protocols otherwise - accuchecks with glycemic control per SSI (While critically ill target blood glucose of 140-180 mg/dL; avoid hypoglycemia) - to avoid benzodiazepine's, reduce the possibility of delirium - prn analgesia per CPOT score - Maintenance of sleep-wake cycle, avoid delirium - continue enteral nutritional support at goal rate as tolerated - G.I. & VTE prophylaxis - PT/OT/ROM exercises - continue mobility protocols for pressure ulcer prophylaxis - Monitor hemodynamics closely - continue other care per attending / other consultants - discharge planning ongoing concurrently .... Re-evaluate in am & prn CONDITION: CRITICAL PROGNOSIS: GUARDED CODE STATUS: FULL CODE The high probability of a clinically significant, sudden or life-threatening deterioration of the [respiratory & cardiovascular] system(s) required my full and direct attention, intervention and personal management. The aggregate critical care time was [33] minutes without overlap. Time includes spent on; [x] Data Review and interpretation [x] Patient assessment and monitoring of vital signs [x] Documentation [x] Medication orders and management Subjective Date of service: 07/07/19 Principal diagnosis: Bilateral pneumonia, severe sepsis with septic shock, encephalopathy Interval history: Patient is seen today for: Ac hypoxemic Resp failure on MVS; Severe sepsis with Shock; Ivan. Pneumonia; PUI coronavirus-19 infection. Seen and examined at bedside; 24hour events reviewed; nursing and respiratory care staff consulted; no adverse overnight events reported to me; resting in bed; remains on MVS; AMS is persistent; no emesis or overt aspiration; weanmed off Levophed Objective Vital Signs - 12hr 07/07/19 07/07/19 07/07/19 04:15 04:30 04:45 Temperature Pulse Rate 117 H 118 H 120 H Pulse Rate [ From Monitor] Respiratory 25 H 25 H 26 H Rate Blood Pressure 110/61 110/54 123/66 O2 Sat by Pulse 96 96 96 Oximetry 07/07/19 07/07/19 07/07/19 04:53 05:00 05:15 Temperature Pulse Rate 118 H 119 H 121 H Pulse Rate [ From Monitor] Respiratory 25 H 28 H Rate Blood Pressure 110/54 115/52 103/52 O2 Sat by Pulse 96 96 95 Oximetry 07/07/19 07/07/19 07/07/19 05:30 05:45 06:00 Temperature Pulse Rate 121 H 118 H 120 H Pulse Rate [ From Monitor] Respiratory 28 H 25 H 27 H Rate Blood Pressure 121/61 115/52 123/59 O2 Sat by Pulse 95 96 94 Oximetry 07/07/19 07/07/19 07/07/19 06:15 06:30 06:45 Temperature Pulse Rate 119 H 121 H 121 H Pulse Rate [ From Monitor] Respiratory 26 H 27 H 27 H Rate Blood Pressure 123/59 124/64 124/64 O2 Sat by Pulse 95 95 95 Oximetry 07/07/19 07/07/19 07/07/19 07:01 07:15 07:31 Temperature Pulse Rate 121 H 123 H 126 H Pulse Rate [ From Monitor] Respiratory 26 H 27 H 27 H Rate Blood Pressure 126/63 126/63 129/61 O2 Sat by Pulse 96 95 97 Oximetry 07/07/19 07/07/19 07/07/19 07:45 08:00 08:15 Temperature 97.4 F L Pulse Rate 125 H 125 H 126 H Pulse Rate [ 130 H From Monitor] Respiratory 25 H 26 H 28 H Rate Blood Pressure 129/61 135/66 135/66 O2 Sat by Pulse 97 96 96 Oximetry 07/07/19 07/07/19 07/07/19 08:31 08:45 09:01 Temperature Pulse Rate 128 H 128 H 128 H Pulse Rate [ From Monitor] Respiratory 27 H 29 H 28 H Rate Blood Pressure 135/67 135/67 134/68 O2 Sat by Pulse 95 96 96 Oximetry 07/07/19 07/07/19 07/07/19 09:15 09:31 09:45 Temperature Pulse Rate 129 H 128 H 132 H Pulse Rate [ From Monitor] Respiratory 24 25 H 27 H Rate Blood Pressure 134/68 133/71 133/71 O2 Sat by Pulse 96 95 95 Oximetry 07/07/19 07/07/19 07/07/19 09:55 10:01 10:15 Temperature Pulse Rate 132 H 132 H 129 H Pulse Rate [ From Monitor] Respiratory 27 H 26 H Rate Blood Pressure 133/63 135/66 135/66 O2 Sat by Pulse 94 95 95 Oximetry 07/07/19 07/07/19 07/07/19 10:30 10:45 11:00 Temperature Pulse Rate 129 H 130 H 129 H Pulse Rate [ From Monitor] Respiratory 25 H 26 H 26 H Rate Blood Pressure 127/62 127/62 131/64 O2 Sat by Pulse 96 94 95 Oximetry 07/07/19 07/07/19 07/07/19 11:15 11:17 11:31 Temperature 98.7 F Pulse Rate 128 H 130 H Pulse Rate [ From Monitor] Respiratory 26 H 24 Rate Blood Pressure 124/40 133/63 O2 Sat by Pulse 95 95 Oximetry 07/07/19 07/07/19 07/07/19 11:45 12:00 12:01 Temperature Pulse Rate 129 H 129 H 131 H Pulse Rate [ 129 H From Monitor] Respiratory 26 H 25 H 27 H Rate Blood Pressure 133/63 125/63 O2 Sat by Pulse 95 95 Oximetry 07/07/19 07/07/19 07/07/19 12:15 12:31 12:45 Temperature Pulse Rate 129 H 133 H 128 H Pulse Rate [ From Monitor] Respiratory 26 H 27 H 25 H Rate Blood Pressure 125/63 125/63 132/60 O2 Sat by Pulse 95 91 93 Oximetry 07/07/19 07/07/19 07/07/19 13:01 13:15 13:31 Temperature Pulse Rate 128 H 129 H 128 H Pulse Rate [ From Monitor] Respiratory 23 23 26 H Rate Blood Pressure 108/64 108/64 112/60 O2 Sat by Pulse 94 95 96 Oximetry 07/07/19 07/07/19 07/07/19 13:45 14:00 14:15 Temperature Pulse Rate 124 H 126 H 124 H Pulse Rate [ From Monitor] Respiratory 25 H 25 H 25 H Rate Blood Pressure 112/60 118/64 118/64 O2 Sat by Pulse 95 94 95 Oximetry 07/07/19 07/07/19 07/07/19 14:31 14:45 15:01 Temperature Pulse Rate 125 H 125 H 125 H Pulse Rate [ From Monitor] Respiratory 25 H 25 H 25 H Rate Blood Pressure 120/58 120/58 119/61 O2 Sat by Pulse 96 96 96 Oximetry 07/07/19 07/07/19 07/07/19 15:15 15:30 15:45 Temperature Pulse Rate 124 H 124 H 124 H Pulse Rate [ From Monitor] Respiratory 25 H 25 H 25 H Rate Blood Pressure 119/61 124/61 124/61 O2 Sat by Pulse 95 96 96 Oximetry Constitutional: appears uncomfortable, other (eelderly and chronically ill looking AAM, normocep[krystina;ic with mildly increased respiratory effort at rest) Eyes: non-icteric ENT: oropharynx moist, other (ETT 24 cm RUTH) Neck: supple, no lymphadenopathy, no JVD Effort: mildly labored Ascultation: Bilateral: diminished breath sounds, rhonchi Percussion: Bilateral: not dull Cardiovascular: regular rate and rhythm Gastrointestinal: normoactive bowel sounds, soft, non-tender, non-distended, other (+ PEG tube with mild TF leakage) Integumentary: decubitus ulcer Extremities: no cyanosis, no edema, pink and warm, pulses normal Neurologic: unable to assess Psychiatric: other (Unable to assess re: AMS) CBC and BMP: 07/07/19 22:00 07/07/19 05:34 ABG, PT/INR, D-dimer: ABG ABG pH 7.409 pH Units (7.350-7.450) 07/07/19 04:35 ABG pCO2 36.5 mm Hg 07/07/19 04:35 ABG pO2 65.8 mm Hg (80.0-90.0) L 07/07/19 04:35 ABG O2 Saturation 92.2 % (95.0-99.0) L 07/07/19 04:35 PT/INR, D-dimer PT 16.0 Sec. (12.2-14.9) H 07/03/19 22:20 INR 1.26 (0.87-1.13) H 07/03/19 22:20 D-Dimer 1333.22 ng/mlDDU (0-234) H 07/06/19 00:27 Abnormal lab findings: Abnormal Labs 07/03/19 07/03/19 07/03/19 19:57 21:10 21:13 WBC RBC Hgb Hct MCV MCH RDW Plt Count Seg Neuts % (Manual) Lymphocytes % (Manual) Seg Neutrophils # Man Lymphocytes # (Manual) PT INR D-Dimer ABG pH 7.238 L ABG pO2 210.8 H ABG HCO3 15.4 L ABG O2 Saturation 99.2 H ABG Base Excess -11.1 L ABG Hemoglobin 8.0 L Oxyhemoglobin Sodium 124 L Potassium Chloride 92.9 L Carbon Dioxide 10 L BUN 23 H Creatinine 0.5 L Glucose 118 H POC Glucose Lactic Acid Calcium 7.0 L Magnesium Iron TIBC Ferritin AST 70 H ALT 88 H Lactate Dehydrogenase Troponin T 0.032 H C-Reactive Protein Total Protein 5.0 L Albumin 1.8 L Cholesterol 47 L LDL Cholesterol Direct 25 L HDL Cholesterol 20 L Urine WBC (Auto) 12.0 H Vancomycin Trough Coronavirus (PCR) Crossmatch 07/03/19 07/03/19 07/03/19 22:20 22:20 22:20 WBC 30.5 H RBC 2.96 L Hgb 7.7 L Hct 23.9 L MCV 81 L MCH 26 L RDW 18.6 H Plt Count 459 H Seg Neuts % (Manual) 93.0 H Lymphocytes % (Manual) 0.5 L Seg Neutrophils # Man 28.4 H Lymphocytes # (Manual) 0.2 L PT 16.0 H INR 1.26 H D-Dimer ABG pH ABG pO2 ABG HCO3 ABG O2 Saturation ABG Base Excess ABG Hemoglobin Oxyhemoglobin Sodium Potassium Chloride Carbon Dioxide BUN Creatinine Glucose POC Glucose Lactic Acid 6.90 H* Calcium Magnesium Iron TIBC Ferritin AST ALT Lactate Dehydrogenase Troponin T C-Reactive Protein Total Protein Albumin Cholesterol LDL Cholesterol Direct HDL Cholesterol Urine WBC (Auto) Vancomycin Trough Coronavirus (PCR) Crossmatch 07/03/19 07/04/19 07/04/19 23:58 05:15 07:05 WBC 17.1 H RBC 3.22 L Hgb 8.3 L Hct 25.4 L MCV 79 L MCH 26 L RDW 18.6 H Plt Count Seg Neuts % (Manual) 74.0 H Lymphocytes % (Manual) 0 L Seg Neutrophils # Man 12.7 H Lymphocytes # (Manual) 0.0 L PT INR D-Dimer ABG pH 7.310 L ABG pO2 73.2 L ABG HCO3 17.8 L ABG O2 Saturation 93.8 L ABG Base Excess -7.7 L ABG Hemoglobin 9.6 L Oxyhemoglobin 92.3 L Sodium Potassium Chloride Carbon Dioxide BUN Creatinine Glucose POC Glucose Lactic Acid 7.10 H* Calcium Magnesium Iron TIBC Ferritin AST ALT Lactate Dehydrogenase Troponin T C-Reactive Protein Total Protein Albumin Cholesterol LDL Cholesterol Direct HDL Cholesterol Urine WBC (Auto) Vancomycin Trough Coronavirus (PCR) Crossmatch 07/04/19 07/04/19 07/04/19 07:05 07:05 07:05 WBC RBC Hgb Hct MCV MCH RDW Plt Count Seg Neuts % (Manual) Lymphocytes % (Manual) Seg Neutrophils # Man Lymphocytes # (Manual) PT INR D-Dimer ABG pH ABG pO2 ABG HCO3 ABG O2 Saturation ABG Base Excess ABG Hemoglobin Oxyhemoglobin Sodium 120 L Potassium 5.1 H Chloride 90.0 L Carbon Dioxide 14 L BUN 26 H Creatinine 0.5 L Glucose POC Glucose Lactic Acid 3.30 H* Calcium 8.0 L Magnesium Iron 9 L TIBC 97 L Ferritin AST 73 H ALT 91 H Lactate Dehydrogenase Troponin T C-Reactive Protein Total Protein 5.5 L Albumin 2.0 L Cholesterol LDL Cholesterol Direct HDL Cholesterol Urine WBC (Auto) Vancomycin Trough Coronavirus (PCR) Crossmatch 07/04/19 07/04/19 07/04/19 09:39 09:39 09:39 WBC RBC Hgb Hct MCV MCH RDW Plt Count Seg Neuts % (Manual) Lymphocytes % (Manual) Seg Neutrophils # Man Lymphocytes # (Manual) PT INR D-Dimer 1419.14 H ABG pH ABG pO2 ABG HCO3 ABG O2 Saturation ABG Base Excess ABG Hemoglobin Oxyhemoglobin Sodium Potassium Chloride Carbon Dioxide BUN Creatinine Glucose POC Glucose Lactic Acid Calcium Magnesium Iron TIBC Ferritin 1719.0 H AST ALT Lactate Dehydrogenase 234 H Troponin T C-Reactive Protein 15.50 H Total Protein Albumin Cholesterol LDL Cholesterol Direct HDL Cholesterol Urine WBC (Auto) Vancomycin Trough Coronavirus (PCR) Crossmatch 07/04/19 07/04/19 07/04/19 10:09 18:08 18:28 WBC RBC Hgb Hct MCV MCH RDW Plt Count Seg Neuts % (Manual) Lymphocytes % (Manual) Seg Neutrophils # Man Lymphocytes # (Manual) PT INR D-Dimer ABG pH ABG pO2 ABG HCO3 ABG O2 Saturation ABG Base Excess ABG Hemoglobin Oxyhemoglobin Sodium 117 L* Potassium 5.6 H Chloride 90.3 L Carbon Dioxide 16 L BUN 28 H Creatinine 0.5 L Glucose 58 L POC Glucose 65 L Lactic Acid Calcium 8.2 L Magnesium Iron TIBC Ferritin AST ALT Lactate Dehydrogenase Troponin T C-Reactive Protein Total Protein Albumin Cholesterol LDL Cholesterol Direct HDL Cholesterol Urine WBC (Auto) Vancomycin Trough Coronavirus (PCR) Positive A Crossmatch 07/04/19 07/04/19 07/04/19 23:45 Unknown Unknown WBC RBC Hgb Hct MCV MCH RDW Plt Count Seg Neuts % (Manual) Lymphocytes % (Manual) Seg Neutrophils # Man Lymphocytes # (Manual) PT INR D-Dimer 759.77 H ABG pH ABG pO2 ABG HCO3 ABG O2 Saturation ABG Base Excess ABG Hemoglobin Oxyhemoglobin Sodium 122 L Potassium Chloride 93.0 L Carbon Dioxide 19 L BUN 27 H Creatinine 0.5 L Glucose POC Glucose Lactic Acid Calcium 8.3 L Magnesium Iron TIBC Ferritin 1301.0 H AST ALT Lactate Dehydrogenase Troponin T C-Reactive Protein Total Protein Albumin Cholesterol LDL Cholesterol Direct HDL Cholesterol Urine WBC (Auto) Vancomycin Trough Coronavirus (PCR) Crossmatch 07/04/19 07/05/19 07/05/19 Unknown 03:20 04:00 WBC RBC Hgb Hct MCV MCH RDW Plt Count Seg Neuts % (Manual) Lymphocytes % (Manual) Seg Neutrophils # Man Lymphocytes # (Manual) PT INR D-Dimer ABG pH ABG pO2 60.6 L ABG HCO3 ABG O2 Saturation 93.5 L ABG Base Excess -2.4 L ABG Hemoglobin 6.9 L Oxyhemoglobin 92.0 L Sodium 125 L Potassium Chloride 92.6 L Carbon Dioxide 19 L BUN 24 H Creatinine 0.6 L Glucose POC Glucose Lactic Acid Calcium 8.2 L Magnesium 1.40 L Iron TIBC Ferritin AST ALT Lactate Dehydrogenase 242 H Troponin T C-Reactive Protein 16.70 H Total Protein Albumin Cholesterol LDL Cholesterol Direct HDL Cholesterol Urine WBC (Auto) Vancomycin Trough Coronavirus (PCR) Crossmatch 07/05/19 07/05/19 07/05/19 10:11 16:15 17:54 WBC 46.4 H* RBC 2.77 L Hgb 7.2 L Hct 21.9 L MCV 79 L MCH 26 L RDW 19.0 H Plt Count Seg Neuts % (Manual) 82.0 H Lymphocytes % (Manual) 1.0 L Seg Neutrophils # Man 38.0 H Lymphocytes # (Manual) 0.5 L PT INR D-Dimer ABG pH ABG pO2 ABG HCO3 ABG O2 Saturation ABG Base Excess ABG Hemoglobin Oxyhemoglobin Sodium Potassium Chloride Carbon Dioxide BUN Creatinine Glucose POC Glucose 69 L Lactic Acid Calcium Magnesium Iron TIBC Ferritin AST ALT Lactate Dehydrogenase Troponin T C-Reactive Protein Total Protein Albumin Cholesterol LDL Cholesterol Direct HDL Cholesterol Urine WBC (Auto) Vancomycin Trough 23.2 H Coronavirus (PCR) Crossmatch 07/05/19 07/06/19 07/06/19 19:58 00:27 00:27 WBC RBC Hgb Hct MCV MCH RDW Plt Count Seg Neuts % (Manual) Lymphocytes % (Manual) Seg Neutrophils # Man Lymphocytes # (Manual) PT INR D-Dimer 1333.22 H ABG pH ABG pO2 ABG HCO3 ABG O2 Saturation ABG Base Excess ABG Hemoglobin Oxyhemoglobin Sodium 127 L Potassium Chloride Carbon Dioxide BUN Creatinine Glucose POC Glucose Lactic Acid Calcium Magnesium Iron TIBC Ferritin 977.1 H AST ALT Lactate Dehydrogenase Troponin T C-Reactive Protein Total Protein Albumin Cholesterol LDL Cholesterol Direct HDL Cholesterol Urine WBC (Auto) Vancomycin Trough Coronavirus (PCR) Crossmatch 07/06/19 07/06/19 07/06/19 00:27 02:00 02:56 WBC RBC Hgb Hct MCV MCH RDW Plt Count Seg Neuts % (Manual) Lymphocytes % (Manual) Seg Neutrophils # Man Lymphocytes # (Manual) PT INR D-Dimer ABG pH ABG pO2 70.3 L ABG HCO3 ABG O2 Saturation 94.8 L ABG Base Excess ABG Hemoglobin 8.0 L Oxyhemoglobin 93.2 L Sodium Potassium Chloride Carbon Dioxide BUN Creatinine Glucose POC Glucose 117 H Lactic Acid Calcium Magnesium Iron TIBC Ferritin AST ALT Lactate Dehydrogenase 236 H Troponin T C-Reactive Protein 22.90 H Total Protein Albumin Cholesterol LDL Cholesterol Direct HDL Cholesterol Urine WBC (Auto) Vancomycin Trough Coronavirus (PCR) Crossmatch 07/06/19 07/06/19 07/06/19 03:49 03:49 07:40 WBC 38.8 H RBC 2.51 L Hgb 6.7 L Hct 19.9 L* MCV 79 L MCH 27 L RDW 19.2 H Plt Count Seg Neuts % (Manual) 90.5 H Lymphocytes % (Manual) 1.0 L Seg Neutrophils # Man 35.1 H Lymphocytes # (Manual) 0.4 L PT INR D-Dimer ABG pH ABG pO2 ABG HCO3 ABG O2 Saturation ABG Base Excess ABG Hemoglobin Oxyhemoglobin Sodium 131 L Potassium Chloride 96.9 L Carbon Dioxide 18 L BUN 23 H Creatinine 0.5 L Glucose POC Glucose Lactic Acid Calcium 8.0 L Magnesium Iron TIBC Ferritin AST ALT Lactate Dehydrogenase Troponin T C-Reactive Protein Total Protein Albumin Cholesterol LDL Cholesterol Direct HDL Cholesterol Urine WBC (Auto) Vancomycin Trough Coronavirus (PCR) Crossmatch See Detail 07/06/19 07/06/19 07/06/19 12:38 14:39 20:00 WBC RBC Hgb Hct MCV MCH RDW Plt Count Seg Neuts % (Manual) Lymphocytes % (Manual) Seg Neutrophils # Man Lymphocytes # (Manual) PT INR D-Dimer ABG pH ABG pO2 ABG HCO3 ABG O2 Saturation ABG Base Excess ABG Hemoglobin Oxyhemoglobin Sodium Potassium Chloride Carbon Dioxide BUN Creatinine Glucose POC Glucose 112 H 111 H 140 H Lactic Acid Calcium Magnesium Iron TIBC Ferritin AST ALT Lactate Dehydrogenase Troponin T C-Reactive Protein Total Protein Albumin Cholesterol LDL Cholesterol Direct HDL Cholesterol Urine WBC (Auto) Vancomycin Trough Coronavirus (PCR) Crossmatch 07/06/19 07/06/19 07/07/19 22:43 22:56 02:20 WBC RBC Hgb 7.9 L Hct 23.1 L MCV MCH RDW Plt Count Seg Neuts % (Manual) Lymphocytes % (Manual) Seg Neutrophils # Man Lymphocytes # (Manual) PT INR D-Dimer ABG pH ABG pO2 ABG HCO3 ABG O2 Saturation ABG Base Excess ABG Hemoglobin Oxyhemoglobin Sodium Potassium Chloride Carbon Dioxide BUN Creatinine Glucose POC Glucose 122 H 149 H Lactic Acid Calcium Magnesium Iron TIBC Ferritin AST ALT Lactate Dehydrogenase Troponin T C-Reactive Protein Total Protein Albumin Cholesterol LDL Cholesterol Direct HDL Cholesterol Urine WBC (Auto) Vancomycin Trough Coronavirus (PCR) Crossmatch 07/07/19 07/07/19 07/07/19 04:35 05:27 05:34 WBC 23.1 H RBC 3.00 L Hgb 8.1 L Hct 24.2 L MCV 81 L MCH 27 L RDW 20.6 H Plt Count Seg Neuts % (Manual) 90.0 H Lymphocytes % (Manual) 2.0 L Seg Neutrophils # Man 20.8 H Lymphocytes # (Manual) 0.5 L PT INR D-Dimer ABG pH ABG pO2 65.8 L ABG HCO3 ABG O2 Saturation 92.2 L ABG Base Excess ABG Hemoglobin 8.3 L Oxyhemoglobin 90.6 L Sodium Potassium Chloride Carbon Dioxide BUN Creatinine Glucose POC Glucose 132 H Lactic Acid Calcium Magnesium Iron TIBC Ferritin AST ALT Lactate Dehydrogenase Troponin T C-Reactive Protein Total Protein Albumin Cholesterol LDL Cholesterol Direct HDL Cholesterol Urine WBC (Auto) Vancomycin Trough Coronavirus (PCR) Crossmatch 07/07/19 07/07/19 05:34 11:50 WBC RBC Hgb Hct MCV MCH RDW Plt Count Seg Neuts % (Manual) Lymphocytes % (Manual) Seg Neutrophils # Man Lymphocytes # (Manual) PT INR D-Dimer ABG pH ABG pO2 ABG HCO3 ABG O2 Saturation ABG Base Excess ABG Hemoglobin Oxyhemoglobin Sodium 135 L Potassium 3.3 L Chloride Carbon Dioxide 20 L BUN 27 H Creatinine 0.6 L Glucose 121 H POC Glucose 123 H Lactic Acid Calcium 8.0 L Magnesium Iron TIBC Ferritin AST ALT Lactate Dehydrogenase Troponin T C-Reactive Protein Total Protein Albumin Cholesterol LDL Cholesterol Direct HDL Cholesterol Urine WBC (Auto) Vancomycin Trough Coronavirus (PCR) Crossmatch Chest x-ray: image reviewed (persistent bilateral pulmonary infiltrates) Allied health notes reviewed: nursing
[2019-07-07 16:16] LABS: Hematocrit 24.2 % (35.5-45.6); Hemoglobin 8.1 gm/dl (11.8-15.2)
[2019-07-07] MEDS: VANCOMYCIN 1,500 MG in SODIUM CHLORIDE 0.9% 500 ML 500 ML IV SCH (22:04)
[2019-07-07] MEDS: MORPHINE 2 MG/1 ML INJ IV PRN (22:30)
[2019-07-07 22:52] LABS: Hematocrit 23.4 % (35.5-45.6)
--- NOTE | 2019-07-07 23:10 | Consultation ---
PULMONARY CRITICAL CARE CONSULTATION NOTE CONSULTING PHYSICIAN: Dr. Ashley Graves. REASON FOR CONSULTATION: Acute hypoxemic respiratory failure, bilateral pneumonia. CHIEF COMPLAINT AND HISTORY OF PRESENT ILLNESS: As follows: The patient is a 69-year-old -Greek male with past medical history significant in this context for a diagnosis of cerebrovascular accident that left him with a right hemiparesis, but also with a significant amount of dementia/chronic encephalopathy. He was brought to the emergency medical services reportedly from home with progressive shortness of breath and impending respiratory failure. He was also unresponsive. In the ER, the patient was found in agonal breathing, had a strong pulse. No CPR was indicated according to the EMS, the patient was intubated. He was then resuscitated in the Emergency Room. Reportedly, he was under hospice at home and as a DNR, but they were unable to provide the appropriate history to explain why he was discharged from the hospice. Since the decision could not be made on a withdrawal issue, he was left on the mechanical ventilator. After evaluation in the Emergency Room, a decision was made to also rule him out for suspected COVID infection after he was also found to have bilateral pneumonia, we are asked to assist with management. When I stopped by to see him, he was resting in bed, again significant dementia. He was on the mechanical ventilator. No significant patient ventilator dyssynchrony. I do not have any history of vomiting or overt aspiration. The patient has not traveled out of the country or anywhere really in the preceding few weeks to months. He is not a current smoker. His remote history is unknown. The above is as much of the history of presentation as I have. PAST MEDICAL HISTORY: Again, history of a cerebrovascular accident, hypertension, diabetes type 2, seizure disorder, dementia, COPD and history of alcohol use at a point. PAST SURGICAL HISTORY: He has a percutaneous endoscopic gastrostomy tube placed. MEDICATIONS: Medications he was on at the time I stopped by to assess him were reviewed. Pertinent medications include the following: Tylenol 650 mg p.o. q. 6 hours p.r.n. mild pain or fever, all p.o. meds via the feeding tube. Aspirin 81 mg p.o. daily, Depakote 1 gram p.o. daily extended release, Pepcid 20 mg IV b.i.d., folic acid 1 mg p.o. daily. Levophed drip was given at 10 mcg per minute. He had been on lactated Ringer's at 125 mL per hour earlier. Cefepime 2 grams IV q. 8 hours, vancomycin 1.5 g IV q. 12 hours, insulin via sliding scale. ALLERGIES: No known drug allergies. DIET: Thin, cachectic looking gentleman, acute weight loss or gain history is unknown. FAMILY AND SOCIAL HISTORY: Apparently lived in the community. No current alcohol, tobacco, or illicit drug use or abuse. He does have a remote history of alcohol abuse according to the records. FAMILY HISTORY: Positive for hypertension. REVIEW OF SYSTEMS: Unobtainable secondary to the patient's medical and mental condition. Since he has been in the Emergency Room, no gross hematochezia or melena, no gross hematuria, no hematemesis, no bloody tracheal secretions, no witnessed seizures. Review of systems otherwise unobtainable or as in body of history above. PHYSICAL EXAMINATION: VITAL SIGNS: At presentation in the Emergency Room, vital signs, initial temperature was 92.3 degrees Fahrenheit rectally with a pulse of 93, respiratory rate of 23, blood pressure 81/47, O2 sats were 99%, inspired oxygen concentration at that time was not recorded. When I stopped by to see him, his O2 sats were 98% that was on the mechanical ventilator, assist control mode of ventilation, tidal volume 500, rate of 20, PEEP of 8 and 50%. GENERAL: Elderly looking -Greek male, resting on the mechanical ventilator with mildly increased respiratory effort at rest. HEAD, EYES, EARS, NOSE AND THROAT: He was anicteric, no conjunctival erythema. Endotracheal tube was in place, taped at the lips around 23-24 cm. No gross jugular venous distention. NECK: Grossly, there were no palpable lymph nodes in the supraclavicular or submandibular lymph node chains. LUNGS: Auscultation of both lung coronado really unremarkable, occasional rhonchi, referred upper airway sounds. No wheezing. HEART: Heart sounds 1 and 2 are heard at the time of my evaluation, regular rate and rhythm without overt rubs or murmurs. ABDOMEN: Soft, flat. Bowel sounds are positive, nontender, no palpable hepatosplenomegaly, percutaneous endoscopic gastrostomy tube was in place. No significant bleeding around the stoma. EXTREMITIES: Without overt digital clubbing or cyanosis. He had bilateral pedal contractures. Pedal pulses were 2+ bilaterally. NEUROLOGICALLY: Pupils are equal, round, about 4 mm, reactive to light. Extraocular muscle movements could not be assessed. He did not have spontaneous movements to his extremities. He had bilateral lower extremity spastic contractures. SKIN: Poor turgor without overt cellulitis or rash in the areas examined. Please see the registered nurse and wound care nurses' notes for full description of his skin. PSYCHIATRIC: Mood and affect were flat. LABORATORY DATA: From my review were as follows: Admission white cell count was 30,500 with a hemoglobin of 7.7, hematocrit of 23.9 and platelet count of 459. No significant band forms were reported on the initial differential. INR was 1.26. D-dimer 1419. Arterial blood gas at presentation showed a pH of 7.24, pCO2 of 37, pO2 of 211 that was on 100% FiO2 and I believe the above-mentioned vent settings, but not sure. At presentation, serum sodium was 124, potassium was 4.8, chloride was 93, bicarbonate was 10, BUN was 23, creatinine was 0.5, glucose was 118. Lactic acid level was 7.1, is down to 3.3. Liver function tests: AST and ALT were elevated. AST 70, ALT 88. Ammonia within normal limits. CRP elevated at 15.5. LDH elevated at 235. Procalcitonin is pending. TSH was within normal limits. Ferritin mentioned above 1719. Urinalysis was negative for nitrites and leukocyte esterase, but with about 12 white cells per high power field. Urine drug screen was presumptive negative. Alcohol level was non-detectable. Coronavirus testing has been sent. Tracheal aspirate is pending, no growth to date. Urine cultures are pending. Radiographic studies have been reviewed. A CT scan of his head was done at presentation. I have reviewed the radiologist's interpretation, no acute intracranial process, just age-related findings. Chest x-ray revealed bilateral pneumonia, right greater than left side. He has some hardware to his neck. He has probably had some fusion type surgery there. He has an element of kyphoscoliosis to the spine. No gross pneumothorax, no gross bony fracture that I can see. Compared to an x-ray from 09/09/2016, the pneumonia is new. ASSESSMENT: 1. Acute hypoxemic respiratory failure, on mechanical ventilatory support. 2. Severe sepsis with shock. 3. Bilateral pneumonia. 4. Possible coronavirus-19 infection. 5. Acute possibly on chronic encephalopathy. 6. Oropharyngeal dysphagia. 7. Anemia. 8. Decubitus ulcers to the buttocks as described. 9. Diabetes type 2. 10. Hypertension. 11. Leukocytosis. 12. Anemia that is microcytic. 13. Elevated serum transaminases. 14. Feafgbex-qv-qasoan metabolic acidosis. 15. Lactic acidosis. 16. Severe protein-calorie malnutrition. PLAN: We will keep him in airborne contact precautions at this time while we rule him out for the coronavirus infection. I will continue empiric broad-spectrum antibiotic therapies as ordered, cefepime and vancomycin. I will defer to the Infectious Disease physician for de-escalation of therapy. Oxygen will be weaned to keep sats greater than or equal to about 90%. Aspiration precautions will be maintained. We will actually target O2 sats 92-96% while he is under investigation for the coronavirus. Ventilator-associated pneumonia bundle has been instituted including aspiration precautions. Bronchodilators, routine pulmonary hygiene will be per the respiratory therapist. His hypothermia is improved at this point in time. His body temperature is up to about 97 degrees. Enteral nutrition will be the feeding modality of choice. I will repeat a stat arterial blood gas and based on the results, we will make decisions on adjusting the ventilator settings. Free water restriction will be instituted in light of the hyponatremia. Electrolytes will be followed and corrected as necessary. Mobility protocols will be instituted to prevent development of new pressure ulcers. Wound care consult will also be placed for management of chronic ulcers. GI and DVT prophylaxis will be continued. Flu and pneumonia vaccination will be addressed per protocol. Thank you very much for the consult. We will follow along. We will make further recommendations as picture progresses/becomes clearer. He is critically ill on life-sustaining interventions including mechanical ventilatory support. I should mention as well as on Levophed, which will be weaned to keep mean arterial pressures greater than or equal to about 65 mmHg while volume resuscitation is ongoing. At this time, I spent about 35-40 minutes of critical care time without overlap and excluding any procedural time that may be necessary. JOB# [id number] [facility] CASTELL[facility]
[2019-07-08] MEDS: INSULIN LISPRO 100 UNIT/ML SUB-Q SCH ×5 (00:17→18:00)
[2019-07-08 02:00] LABS: C-Reactive Protein 18.9 mg/dL (0.00-1.30)
[2019-07-08] MEDS: CEFEPIME/NS 2 GM/100 ML 2 GM/100 ML BAG IV SCH ×2 (05:20→14:30)
[2019-07-08 05:32] LABS: ABG Base Excess -0.5 mmol/L (-2.0-3.0); ABG HCO3 23.9 mmol/L (20.0-26.0); ABG Methemoglobin 0.4 % (0.0-1.5); ABG Oxygen Saturation 92.3 % (95.0-99.0); ABG PCO2 38.1 mm Hg; ABG PH 7.416 pH Units (7.350-7.450)
--- NOTE | 2019-07-08 06:48 | XRay Report ---
CHEST 1 VIEW INDICATION / CLINICAL INFORMATION: follow up respiratory failure. COMPARISON: 07/07/2019 FINDINGS: SUPPORT DEVICES: Stable and satisfactory positioning of ET tube. HEART / MEDIASTINUM: No significant abnormality. LUNGS / PLEURA: There continues to be large areas of consolidation within both lungs, with slight spa ring of the left lung apex. Overall appearance is stable. No pneumothorax. ADDITIONAL FINDINGS: No significant additional findings. IMPRESSION: 1. Stable appearance of severe bilateral airspace disease most consistent with multifocal pneumonia. Signer Name: Amrita Garcia MD Signed: 07/08/2019 6:44 AM Workstation Name: [id number]
[2019-07-08] MEDS: ASPIRIN 81 MG TAB CHEW PO SCH (09:20)
[2019-07-08] MEDS: FAMOTIDINE 20 MG/2 ML INJ IV SCH ×2 (09:20→22:31)
[2019-07-08] MEDS: SODIUM BICARBONATE 650 MG TAB PO SCH ×3 (09:20→20:34)
[2019-07-08] MEDS: levETIRAcetam 500 MG/5 ML ORAL LIQD FEEDTUBE SCH ×2 (09:20→22:30)
[2019-07-08] MEDS: HYDROXYCHLOROQUINE 200 MG TAB PO SCH ×2 (09:20→22:31)
[2019-07-08] MEDS: FOLIC ACID 1 MG TAB PO SCH (09:20)
--- NOTE | 2019-07-08 13:50 | Progress Note ---
Assessment and Plan COVid positive- Acute respiratory Failure with Hypoxia - Due to bilateral PNA with COVID 19 infection. -pulmonary critical care following -Continue scheduled labs, antibiotics, mechanical ventilation, supportive care as needed Bilateral PNA with severe sepsis - see above -ID following, started on Plaquenil -Also continue vancomycin and cefepime -Ordered for T-tube culture Acute metabolic encephalopathy -Likely due to respiratory arrest and severe sepsis - Hold Hyoscamine. monitor Troponins. -CT head unremarkable Shock, likely septic: Lactic acidosis -Levophed as needed, continue IV fluid COPD with exacerbation -Likely due to COVID-19 pneumonia -Continue IV antibiotics, Plaquenil, scheduled nebs Anemia, Microcytic - check iron, TIBC - monitor H&H, transfuse one unit Pressure Ulcers - buttocks, right lateral foot area - present upon admission - wound care consulted Hyponatremia, continue IV fluid DM type 2 - Accuchecks with sliding scale insulin HTN Essential, now hypotensive -relatively low BP - on IVF. monitor Seizure D/o/CVA/immobility/BIpolar D/o/SCZ chronic medical conditions - continue meds patient is DNR- Called and verified information Guarded prognosis, patient is critically ill 07/04: COVID +ve, start on plaquinil, called no answer 07/05: transfuse one unit PRBC, Hb dropped to ~6, called and updated 07/06; H&H stable, serum chemistry improved. On mechanical ventilation with high inflammatory markers. Continue Plaquenil and empiric antibiotics. ID following, prognosis remains guarded and extremely poor. 07/07: On mechanical ventilation with high inflammatory markers. Continue Plaquenil and empiric antibiotics. ID following, prognosis remains guarded and extremely poor. The high probability of a clinically significant, sudden or life threatening deterioration of the [respiratory, CVS, ACCOUNT EXECUT[employer]ALWORKING] system(s) required my full and direct attention, intervention and personal management. The aggregate critical care time was [32] minutes. This time is in addition to time spent performing reported procedures but includes the following: [x] Data Review and interpretation [x] Patient assessment and monitoring of vital signs [x] Documentation [x] Medication orders and management Subjective Date of service: 07/08/19 Principal diagnosis: Bilateral pneumonia, severe sepsis with septic shock, enc ephalopathy Interval history: Patient seen and examined. Medical records and medication list reviewed. No acute event overnight noted by the RN. Patient is positive for COVID-19. Patient remains intubated on mechanical ventilation Discussed plan of care at bedside with patient's RN. Objective - Exam Narrative Exam: General appearance: sedated on ventilator, intubated, other (emaciated) EENT: ATNC, other (pupils equal) Neck: Present: trachea midline Respiratory: Clear to Ascultation Heart: regular, S1S2, no murmurs Gastrointestinal: Present: normoactive bowel sounds, other (PEG tube noted). Absent: tenderness Integumentary: ulcer (both feet) Neurologic: other (not responding) Musculoskeletal: Present: other (trace ankle edema) - Constitutional Vitals: Vital Signs - 12hr 07/08/19 07/08/19 07/08/19 02:00 02:30 03:01 Temperature Pulse Rate 117 H 119 H 120 H Respiratory 25 H 25 H 27 H Rate Blood Pressure 103/53 105/57 113/57 O2 Sat by Pulse 93 94 94 Oximetry 07/08/19 07/08/19 07/08/19 03:31 04:00 04:01 Temperature Pulse Rate 125 H 122 H 121 H Respiratory 26 H 27 H Rate Blood Pressure 118/55 107/52 O2 Sat by Pulse 92 92 Oximetry 07/08/19 07/08/19 07/08/19 04:31 05:00 05:01 Temperature Pulse Rate 127 H 126 H 126 H Respiratory 29 H 27 H Rate Blood Pressure 115/67 113/64 113/64 O2 Sat by Pulse 94 96 96 Oximetry 07/08/19 07/08/19 07/08/19 05:31 06:00 06:30 Temperature Pulse Rate 126 H 132 H 126 H Respiratory 25 H 29 H 27 H Rate Blood Pressure 113/58 130/67 117/60 O2 Sat by Pulse 96 91 95 Oximetry 07/08/19 07/08/19 07/08/19 07:00 07:30 08:00 Temperature 98.6 F Pulse Rate 125 H 126 H 125 H Respiratory 27 H 26 H 27 H Rate Blood Pressure 117/62 119/63 115/65 O2 Sat by Pulse 95 95 96 Oximetry 07/08/19 07/08/19 07/08/19 08:30 09:00 09:30 Temperature Pulse Rate 125 H 125 H 128 H Respiratory 26 H 28 H 31 H Rate Blood Pressure 125/59 116/65 131/80 O2 Sat by Pulse 95 96 94 Oximetry 07/08/19 07/08/19 07/08/19 10:00 10:40 12:00 Temperature 98.6 F Pulse Rate 123 H 123 H Respiratory 25 H Rate Blood Pressure 124/66 127/60 O2 Sat by Pulse 94 97 Oximetry 07/08/19 12:50 Temperature Pulse Rate 123 H Respiratory Rate Blood Pressure O2 Sat by Pulse 97 Oximetry - Labs CBC & Chem 7: 07/09/19 04:30 07/09/19 04:30 Labs: Abnormal lab results 07/07/19 07/07/19 07/07/19 Range/Units 15:58 17:42 22:00 Hgb 8.1 L 8.0 L (11.8-15.2) gm/dl Hct 24.2 L 23.4 L (35.5-45.6) % D-Dimer (0-234) ng/mlDDU ABG pO2 (80.0-90.0) mm Hg ABG O2 Saturation (95.0-99.0) % ABG Hemoglobin (14.0-18.0) gm/dl Oxyhemoglobin (95.0-99.0) % POC Glucose 107 H (70-105) Ferritin (13.0-400.0) ng/mL Lactate Dehydrogenase (91-180) units/L C-Reactive Protein (0.00-1.30) mg/dL 07/07/19 07/08/19 07/08/19 Range/Units 23:53 00:45 00:45 Hgb (11.8-15.2) gm/dl Hct (35.5-45.6) % D-Dimer 1142.18 H (0-234) ng/mlDDU ABG pO2 (80.0-90.0) mm Hg ABG O2 Saturation (95.0-99.0) % ABG Hemoglobin (14.0-18.0) gm/dl Oxyhemoglobin (95.0-99.0) % POC Glucose 117 H (70-105) Ferritin 839.0 H (13.0-400.0) ng/mL Lactate Dehydrogenase (91-180) units/L C-Reactive Protein (0.00-1.30) mg/dL 07/08/19 07/08/19 07/08/19 Range/Units 00:45 04:30 05:11 Hgb (11.8-15.2) gm/dl Hct (35.5-45.6) % D-Dimer (0-234) ng/mlDDU ABG pO2 66.0 L (80.0-90.0) mm Hg ABG O2 Saturation 92.3 L (95.0-99.0) % ABG Hemoglobin 7.7 L (14.0-18.0) gm/dl Oxyhemoglobin 90.7 L (95.0-99.0) % POC Glucose 108 H (70-105) Ferritin (13.0-400.0) ng/mL Lactate Dehydrogenase 253 H (91-180) units/L C-Reactive Protein 18.90 H (0.00-1.30) mg/dL 07/08/19 Range/Units 12:02 Hgb (11.8-15.2) gm/dl Hct (35.5-45.6) % D-Dimer (0-234) ng/mlDDU ABG pO2 (80.0-90.0) mm Hg ABG O2 Saturation (95.0-99.0) % ABG Hemoglobin (14.0-18.0) gm/dl Oxyhemoglobin (95.0-99.0) % POC Glucose 153 H (70-105) Ferritin (13.0-400.0) ng/mL Lactate Dehydrogenase (91-180) units/L C-Reactive Protein (0.00-1.30) mg/dL
--- NOTE | 2019-07-08 15:00 | Progress Note ---
Assessment and Plan Acute hypoxemic respiratory failure on MVS Severe sepsis with Shock. Bilateral Pneumonia. PUI coronavirus-19 infection. Acute possibly on chronic encephalopathy. Oropharyngeal dysphagia. Anemia. Decubitus ulcers Diabetes type 2. Hypertension. Leukocytosis. Anemia that is microcytic. Elevated serum transaminases. [id number] metabolic acidosis. Lactic acidosis. Severe protein-calorie malnutrition - continue airborne and contact COVID-19 precautions - follow COVID-19 test results - PEG tube adjusted and no acute leakage (Pulled tilll almost taught and HUB readjusted) - continue wean Levophed for target MAP > 65 mmHg (weaned off Levophed) - continue empiric anti-infectives and de-escalate per ID recommendations - continue wound care per WCT - sedation prn for target RASS 0 to -1 - continue to wean supplemental oxygen for target O2 sat's > 90% acutely - Daily SAT's and SBT assessment as tolerated - VAP bundle addressed - continue lung protective strategies - continue bronchodilators with pulmonary hygiene per RT - wean per pulmonary driven protocols otherwise - accuchecks with glycemic control per SSI (While critically ill target blood glucose of 140-180 mg/dL; avoid hypoglycemia) - to avoid benzodiazepine's, reduce the possibility of delirium - prn analgesia per CPOT score - Maintenance of sleep-wake cycle, avoid delirium - continue enteral nutritional support at goal rate as tolerated - G.I. & VTE prophylaxis - PT/OT/ROM exercises - continue mobility protocols for pressure ulcer prophylaxis - Monitor hemodynamics closely - continue other care per attending / other consultants - discharge planning ongoing concurrently .... Re-evaluate in am & prn CONDITION: CRITICAL PROGNOSIS: GUARDED CODE STATUS: FULL CODE The high probability of a clinically significant, sudden or life-threatening deterioration of the [respiratory & cardiovascular] system(s) required my full and direct attention, intervention and personal management. The aggregate critical care time was [35] minutes without overlap. Time includes spent on; [x] Data Review and interpretation [x] Patient assessment and monitoring of vital signs [x] Documentation [x] Medication orders and management Subjective Date of service: 07/08/19 Principal diagnosis: Bilateral pneumonia, severe sepsis with septic shock, encephalopathy Interval history: Patient is seen today for: Ac hypoxemic Resp failure on MVS; Severe sepsis with Shock; Ivan. Pneumonia; PUI coronavirus-19 infection. Seen and examined at bedside; 24hour events reviewed; nursing and respiratory care staff consulted; no adverse overnight events reported to me; resting in bed; remains on MVS; AMS is persistent; not tolerating SBT's yet; no seizures; no emesis or overt aspiration Objective Vital Signs - 12hr 07/08/19 07/08/19 07/08/19 03:01 03:31 04:00 Temperature Pulse Rate 120 H 125 H 122 H Respiratory 27 H 26 H Rate Blood Pressure 113/57 118/55 O2 Sat by Pulse 94 92 Oximetry 07/08/19 07/08/19 07/08/19 04:01 04:31 05:00 Temperature Pulse Rate 121 H 127 H 126 H Respiratory 27 H 29 H 27 H Rate Blood Pressure 107/52 115/67 113/64 O2 Sat by Pulse 92 94 96 Oximetry 07/08/19 07/08/19 07/08/19 05:01 05:31 06:00 Temperature Pulse Rate 126 H 126 H 132 H Respiratory 25 H 29 H Rate Blood Pressure 113/64 113/58 130/67 O2 Sat by Pulse 96 96 91 Oximetry 07/08/19 07/08/19 07/08/19 06:30 07:00 07:30 Temperature Pulse Rate 126 H 125 H 126 H Respiratory 27 H 27 H 26 H Rate Blood Pressure 117/60 117/62 119/63 O2 Sat by Pulse 95 95 95 Oximetry 07/08/19 07/08/19 07/08/19 08:00 08:30 09:00 Temperature 98.6 F Pulse Rate 125 H 125 H 125 H Respiratory 27 H 26 H 28 H Rate Blood Pressure 115/65 125/59 116/65 O2 Sat by Pulse 96 95 96 Oximetry 07/08/19 07/08/19 07/08/19 09:30 10:00 10:40 Temperature Pulse Rate 128 H 123 H 123 H Respiratory 31 H 25 H Rate Blood Pressure 131/80 124/66 127/60 O2 Sat by Pulse 94 94 97 Oximetry 07/08/19 07/08/19 12:00 12:50 Temperature 98.6 F Pulse Rate 123 H Respiratory Rate Blood Pressure O2 Sat by Pulse 97 Oximetry Constitutional: appears uncomfortable, other (eelderly and chronically ill looking AAM, normocep[krystina;ic with mildly increased respiratory effort at rest) Eyes: non-icteric ENT: oropharynx moist, other (ETT 24 cm RUTH) Neck: supple, no lymphadenopathy, no JVD Effort: mildly labored Ascultation: Bilateral: diminished breath sounds, rhonchi Percussion: Bilateral: not dull Cardiovascular: regular rate and rhythm Gastrointestinal: normoactive bowel sounds, soft, non-tender, non-distended, other (+ PEG tube with mild TF leakage) Integumentary: decubitus ulcer Extremities: no cyanosis, no edema, pink and warm, pulses normal Neurologic: unable to assess Psychiatric: other (Unable to assess re: AMS) CBC and BMP: 07/12/19 04:46 07/12/19 04:46 ABG, PT/INR, D-dimer: ABG ABG pH 7.416 pH Units (7.350-7.450) 07/08/19 04:30 ABG pCO2 38.1 mm Hg 07/08/19 04:30 ABG pO2 66.0 mm Hg (80.0-90.0) L 07/08/19 04:30 ABG O2 Saturation 92.3 % (95.0-99.0) L 07/08/19 04:30 PT/INR, D-dimer PT 16.0 Sec. (12.2-14.9) H 07/03/19 22:20 INR 1.26 (0.87-1.13) H 07/03/19 22:20 D-Dimer 1142.18 ng/mlDDU (0-234) H 07/08/19 00:45 Abnormal lab findings: Abnormal Labs 07/03/19 07/03/19 07/03/19 19:57 21:10 21:13 WBC RBC Hgb Hct MCV MCH RDW Plt Count Seg Neuts % (Manual) Lymphocytes % (Manual) Seg Neutrophils # Man Lymphocytes # (Manual) PT INR D-Dimer ABG pH 7.238 L ABG pO2 210.8 H ABG HCO3 15.4 L ABG O2 Saturation 99.2 H ABG Base Excess -11.1 L ABG Hemoglobin 8.0 L Oxyhemoglobin Sodium 124 L Potassium Chloride 92.9 L Carbon Dioxide 10 L BUN 23 H Creatinine 0.5 L Glucose 118 H POC Glucose Lactic Acid Calcium 7.0 L Magnesium Iron TIBC Ferritin AST 70 H ALT 88 H Lactate Dehydrogenase Troponin T 0.032 H C-Reactive Protein Total Protein 5.0 L Albumin 1.8 L Cholesterol 47 L LDL Cholesterol Direct 25 L HDL Cholesterol 20 L Urine WBC (Auto) 12.0 H Vancomycin Trough Coronavirus (PCR) Crossmatch 07/03/19 07/03/19 07/03/19 22:20 22:20 22:20 WBC 30.5 H RBC 2.96 L Hgb 7.7 L Hct 23.9 L MCV 81 L MCH 26 L RDW 18.6 H Plt Count 459 H Seg Neuts % (Manual) 93.0 H Lymphocytes % (Manual) 0.5 L Seg Neutrophils # Man 28.4 H Lymphocytes # (Manual) 0.2 L PT 16.0 H INR 1.26 H D-Dimer ABG pH ABG pO2 ABG HCO3 ABG O2 Saturation ABG Base Excess ABG Hemoglobin Oxyhemoglobin Sodium Potassium Chloride Carbon Dioxide BUN Creatinine Glucose POC Glucose Lactic Acid 6.90 H* Calcium Magnesium Iron TIBC Ferritin AST ALT Lactate Dehydrogenase Troponin T C-Reactive Protein Total Protein Albumin Cholesterol LDL Cholesterol Direct HDL Cholesterol Urine WBC (Auto) Vancomycin Trough Coronavirus (PCR) Crossmatch 07/03/19 07/04/19 07/04/19 23:58 05:15 07:05 WBC 17.1 H RBC 3.22 L Hgb 8.3 L Hct 25.4 L MCV 79 L MCH 26 L RDW 18.6 H Plt Count Seg Neuts % (Manual) 74.0 H Lymphocytes % (Manual) 0 L Seg Neutrophils # Man 12.7 H Lymphocytes # (Manual) 0.0 L PT INR D-Dimer ABG pH 7.310 L ABG pO2 73.2 L ABG HCO3 17.8 L ABG O2 Saturation 93.8 L ABG Base Excess -7.7 L ABG Hemoglobin 9.6 L Oxyhemoglobin 92.3 L Sodium Potassium Chloride Carbon Dioxide BUN Creatinine Glucose POC Glucose Lactic Acid 7.10 H* Calcium Magnesium Iron TIBC Ferritin AST ALT Lactate Dehydrogenase Troponin T C-Reactive Protein Total Protein Albumin Cholesterol LDL Cholesterol Direct HDL Cholesterol Urine WBC (Auto) Vancomycin Trough Coronavirus (PCR) Crossmatch 07/04/19 07/04/19 07/04/19 07:05 07:05 07:05 WBC RBC Hgb Hct MCV MCH RDW Plt Count Seg Neuts % (Manual) Lymphocytes % (Manual) Seg Neutrophils # Man Lymphocytes # (Manual) PT INR D-Dimer ABG pH ABG pO2 ABG HCO3 ABG O2 Saturation ABG Base Excess ABG Hemoglobin Oxyhemoglobin Sodium 120 L Potassium 5.1 H Chloride 90.0 L Carbon Dioxide 14 L BUN 26 H Creatinine 0.5 L Glucose POC Glucose Lactic Acid 3.30 H* Calcium 8.0 L Magnesium Iron 9 L TIBC 97 L Ferritin AST 73 H ALT 91 H Lactate Dehydrogenase Troponin T C-Reactive Protein Total Protein 5.5 L Albumin 2.0 L Cholesterol LDL Cholesterol Direct HDL Cholesterol Urine WBC (Auto) Vancomycin Trough Coronavirus (PCR) Crossmatch 07/04/19 07/04/19 07/04/19 09:39 09:39 09:39 WBC RBC Hgb Hct MCV MCH RDW Plt Count Seg Neuts % (Manual) Lymphocytes % (Manual) Seg Neutrophils # Man Lymphocytes # (Manual) PT INR D-Dimer 1419.14 H ABG pH ABG pO2 ABG HCO3 ABG O2 Saturation ABG Base Excess ABG Hemoglobin Oxyhemoglobin Sodium Potassium Chloride Carbon Dioxide BUN Creatinine Glucose POC Glucose Lactic Acid Calcium Magnesium Iron TIBC Ferritin 1719.0 H AST ALT Lactate Dehydrogenase 234 H Troponin T C-Reactive Protein 15.50 H Total Protein Albumin Cholesterol LDL Cholesterol Direct HDL Cholesterol Urine WBC (Auto) Vancomycin Trough Coronavirus (PCR) Crossmatch 07/04/19 07/04/19 07/04/19 10:09 18:08 18:28 WBC RBC Hgb Hct MCV MCH RDW Plt Count Seg Neuts % (Manual) Lymphocytes % (Manual) Seg Neutrophils # Man Lymphocytes # (Manual) PT INR D-Dimer ABG pH ABG pO2 ABG HCO3 ABG O2 Saturation ABG Base Excess ABG Hemoglobin Oxyhemoglobin Sodium 117 L* Potassium 5.6 H Chloride 90.3 L Carbon Dioxide 16 L BUN 28 H Creatinine 0.5 L Glucose 58 L POC Glucose 65 L Lactic Acid Calcium 8.2 L Magnesium Iron TIBC Ferritin AST ALT Lactate Dehydrogenase Troponin T C-Reactive Protein Total Protein Albumin Cholesterol LDL Cholesterol Direct HDL Cholesterol Urine WBC (Auto) Vancomycin Trough Coronavirus (PCR) Positive A Crossmatch 07/04/19 07/04/19 07/04/19 23:45 Unknown Unknown WBC RBC Hgb Hct MCV MCH RDW Plt Count Seg Neuts % (Manual) Lymphocytes % (Manual) Seg Neutrophils # Man Lymphocytes # (Manual) PT INR D-Dimer 759.77 H ABG pH ABG pO2 ABG HCO3 ABG O2 Saturation ABG Base Excess ABG Hemoglobin Oxyhemoglobin Sodium 122 L Potassium Chloride 93.0 L Carbon Dioxide 19 L BUN 27 H Creatinine 0.5 L Glucose POC Glucose Lactic Acid Calcium 8.3 L Magnesium Iron TIBC Ferritin 1301.0 H AST ALT Lactate Dehydrogenase Troponin T C-Reactive Protein Total Protein Albumin Cholesterol LDL Cholesterol Direct HDL Cholesterol Urine WBC (Auto) Vancomycin Trough Coronavirus (PCR) Crossmatch 07/04/19 07/05/19 07/05/19 Unknown 03:20 04:00 WBC RBC Hgb Hct MCV MCH RDW Plt Count Seg Neuts % (Manual) Lymphocytes % (Manual) Seg Neutrophils # Man Lymphocytes # (Manual) PT INR D-Dimer ABG pH ABG pO2 60.6 L ABG HCO3 ABG O2 Saturation 93.5 L ABG Base Excess -2.4 L ABG Hemoglobin 6.9 L Oxyhemoglobin 92.0 L Sodium 125 L Potassium Chloride 92.6 L Carbon Dioxide 19 L BUN 24 H Creatinine 0.6 L Glucose POC Glucose Lactic Acid Calcium 8.2 L Magnesium 1.40 L Iron TIBC Ferritin AST ALT Lactate Dehydrogenase 242 H Troponin T C-Reactive Protein 16.70 H Total Protein Albumin Cholesterol LDL Cholesterol Direct HDL Cholesterol Urine WBC (Auto) Vancomycin Trough Coronavirus (PCR) Crossmatch 07/05/19 07/05/19 07/05/19 10:11 16:15 17:54 WBC 46.4 H* RBC 2.77 L Hgb 7.2 L Hct 21.9 L MCV 79 L MCH 26 L RDW 19.0 H Plt Count Seg Neuts % (Manual) 82.0 H Lymphocytes % (Manual) 1.0 L Seg Neutrophils # Man 38.0 H Lymphocytes # (Manual) 0.5 L PT INR D-Dimer ABG pH ABG pO2 ABG HCO3 ABG O2 Saturation ABG Base Excess ABG Hemoglobin Oxyhemoglobin Sodium Potassium Chloride Carbon Dioxide BUN Creatinine Glucose POC Glucose 69 L Lactic Acid Calcium Magnesium Iron TIBC Ferritin AST ALT Lactate Dehydrogenase Troponin T C-Reactive Protein Total Protein Albumin Cholesterol LDL Cholesterol Direct HDL Cholesterol Urine WBC (Auto) Vancomycin Trough 23.2 H Coronavirus (PCR) Crossmatch 07/05/19 07/06/19 07/06/19 19:58 00:27 00:27 WBC RBC Hgb Hct MCV MCH RDW Plt Count Seg Neuts % (Manual) Lymphocytes % (Manual) Seg Neutrophils # Man Lymphocytes # (Manual) PT INR D-Dimer 1333.22 H ABG pH ABG pO2 ABG HCO3 ABG O2 Saturation ABG Base Excess ABG Hemoglobin Oxyhemoglobin Sodium 127 L Potassium Chloride Carbon Dioxide BUN Creatinine Glucose POC Glucose Lactic Acid Calcium Magnesium Iron TIBC Ferritin 977.1 H AST ALT Lactate Dehydrogenase Troponin T C-Reactive Protein Total Protein Albumin Cholesterol LDL Cholesterol Direct HDL Cholesterol Urine WBC (Auto) Vancomycin Trough Coronavirus (PCR) Crossmatch 07/06/19 07/06/19 07/06/19 00:27 02:00 02:56 WBC RBC Hgb Hct MCV MCH RDW Plt Count Seg Neuts % (Manual) Lymphocytes % (Manual) Seg Neutrophils # Man Lymphocytes # (Manual) PT INR D-Dimer ABG pH ABG pO2 70.3 L ABG HCO3 ABG O2 Saturation 94.8 L ABG Base Excess ABG Hemoglobin 8.0 L Oxyhemoglobin 93.2 L Sodium Potassium Chloride Carbon Dioxide BUN Creatinine Glucose POC Glucose 117 H Lactic Acid Calcium Magnesium Iron TIBC Ferritin AST ALT Lactate Dehydrogenase 236 H Troponin T C-Reactive Protein 22.90 H Total Protein Albumin Cholesterol LDL Cholesterol Direct HDL Cholesterol Urine WBC (Auto) Vancomycin Trough Coronavirus (PCR) Crossmatch 07/06/19 07/06/19 07/06/19 03:49 03:49 07:40 WBC 38.8 H RBC 2.51 L Hgb 6.7 L Hct 19.9 L* MCV 79 L MCH 27 L RDW 19.2 H Plt Count Seg Neuts % (Manual) 90.5 H Lymphocytes % (Manual) 1.0 L Seg Neutrophils # Man 35.1 H Lymphocytes # (Manual) 0.4 L PT INR D-Dimer ABG pH ABG pO2 ABG HCO3 ABG O2 Saturation ABG Base Excess ABG Hemoglobin Oxyhemoglobin Sodium 131 L Potassium Chloride 96.9 L Carbon Dioxide 18 L BUN 23 H Creatinine 0.5 L Glucose POC Glucose Lactic Acid Calcium 8.0 L Magnesium Iron TIBC Ferritin AST ALT Lactate Dehydrogenase Troponin T C-Reactive Protein Total Protein Albumin Cholesterol LDL Cholesterol Direct HDL Cholesterol Urine WBC (Auto) Vancomycin Trough Coronavirus (PCR) Crossmatch See Detail 07/06/19 07/06/19 07/06/19 12:38 14:39 20:00 WBC RBC Hgb Hct MCV MCH RDW Plt Count Seg Neuts % (Manual) Lymphocytes % (Manual) Seg Neutrophils # Man Lymphocytes # (Manual) PT INR D-Dimer ABG pH ABG pO2 ABG HCO3 ABG O2 Saturation ABG Base Excess ABG Hemoglobin Oxyhemoglobin Sodium Potassium Chloride Carbon Dioxide BUN Creatinine Glucose POC Glucose 112 H 111 H 140 H Lactic Acid Calcium Magnesium Iron TIBC Ferritin AST ALT Lactate Dehydrogenase Troponin T C-Reactive Protein Total Protein Albumin Cholesterol LDL Cholesterol Direct HDL Cholesterol Urine WBC (Auto) Vancomycin Trough Coronavirus (PCR) Crossmatch 07/06/19 07/06/19 07/07/19 22:43 22:56 02:20 WBC RBC Hgb 7.9 L Hct 23.1 L MCV MCH RDW Plt Count Seg Neuts % (Manual) Lymphocytes % (Manual) Seg Neutrophils # Man Lymphocytes # (Manual) PT INR D-Dimer ABG pH ABG pO2 ABG HCO3 ABG O2 Saturation ABG Base Excess ABG Hemoglobin Oxyhemoglobin Sodium Potassium Chloride Carbon Dioxide BUN Creatinine Glucose POC Glucose 122 H 149 H Lactic Acid Calcium Magnesium Iron TIBC Ferritin AST ALT Lactate Dehydrogenase Troponin T C-Reactive Protein Total Protein Albumin Cholesterol LDL Cholesterol Direct HDL Cholesterol Urine WBC (Auto) Vancomycin Trough Coronavirus (PCR) Crossmatch 07/07/19 07/07/19 07/07/19 04:35 05:27 05:34 WBC 23.1 H RBC 3.00 L Hgb 8.1 L Hct 24.2 L MCV 81 L MCH 27 L RDW 20.6 H Plt Count Seg Neuts % (Manual) 90.0 H Lymphocytes % (Manual) 2.0 L Seg Neutrophils # Man 20.8 H Lymphocytes # (Manual) 0.5 L PT INR D-Dimer ABG pH ABG pO2 65.8 L ABG HCO3 ABG O2 Saturation 92.2 L ABG Base Excess ABG Hemoglobin 8.3 L Oxyhemoglobin 90.6 L Sodium Potassium Chloride Carbon Dioxide BUN Creatinine Glucose POC Glucose 132 H Lactic Acid Calcium Magnesium Iron TIBC Ferritin AST ALT Lactate Dehydrogenase Troponin T C-Reactive Protein Total Protein Albumin Cholesterol LDL Cholesterol Direct HDL Cholesterol Urine WBC (Auto) Vancomycin Trough Coronavirus (PCR) Crossmatch 07/07/19 07/07/19 07/07/19 05:34 11:50 15:58 WBC RBC Hgb 8.1 L Hct 24.2 L MCV MCH RDW Plt Count Seg Neuts % (Manual) Lymphocytes % (Manual) Seg Neutrophils # Man Lymphocytes # (Manual) PT INR D-Dimer ABG pH ABG pO2 ABG HCO3 ABG O2 Saturation ABG Base Excess ABG Hemoglobin Oxyhemoglobin Sodium 135 L Potassium 3.3 L Chloride Carbon Dioxide 20 L BUN 27 H Creatinine 0.6 L Glucose 121 H POC Glucose 123 H Lactic Acid Calcium 8.0 L Magnesium Iron TIBC Ferritin AST ALT Lactate Dehydrogenase Troponin T C-Reactive Protein Total Protein Albumin Cholesterol LDL Cholesterol Direct HDL Cholesterol Urine WBC (Auto) Vancomycin Trough Coronavirus (PCR) Crossmatch 07/07/19 07/07/19 07/07/19 17:42 22:00 23:53 WBC RBC Hgb 8.0 L Hct 23.4 L MCV MCH RDW Plt Count Seg Neuts % (Manual) Lymphocytes % (Manual) Seg Neutrophils # Man Lymphocytes # (Manual) PT INR D-Dimer ABG pH ABG pO2 ABG HCO3 ABG O2 Saturation ABG Base Excess ABG Hemoglobin Oxyhemoglobin Sodium Potassium Chloride Carbon Dioxide BUN Creatinine Glucose POC Glucose 107 H 117 H Lactic Acid Calcium Magnesium Iron TIBC Ferritin AST ALT Lactate Dehydrogenase Troponin T C-Reactive Protein Total Protein Albumin Cholesterol LDL Cholesterol Direct HDL Cholesterol Urine WBC (Auto) Vancomycin Trough Coronavirus (PCR) Crossmatch 07/08/19 07/08/19 07/08/19 00:45 00:45 00:45 WBC RBC Hgb Hct MCV MCH RDW Plt Count Seg Neuts % (Manual) Lymphocytes % (Manual) Seg Neutrophils # Man Lymphocytes # (Manual) PT INR D-Dimer 1142.18 H ABG pH ABG pO2 ABG HCO3 ABG O2 Saturation ABG Base Excess ABG Hemoglobin Oxyhemoglobin Sodium Potassium Chloride Carbon Dioxide BUN Creatinine Glucose POC Glucose Lactic Acid Calcium Magnesium Iron TIBC Ferritin 839.0 H AST ALT Lactate Dehydrogenase 253 H Troponin T C-Reactive Protein 18.90 H Total Protein Albumin Cholesterol LDL Cholesterol Direct HDL Cholesterol Urine WBC (Auto) Vancomycin Trough Coronavirus (PCR) Crossmatch 07/08/19 07/08/19 07/08/19 04:30 05:11 12:02 WBC RBC Hgb Hct MCV MCH RDW Plt Count Seg Neuts % (Manual) Lymphocytes % (Manual) Seg Neutrophils # Man Lymphocytes # (Manual) PT INR D-Dimer ABG pH ABG pO2 66.0 L ABG HCO3 ABG O2 Saturation 92.3 L ABG Base Excess ABG Hemoglobin 7.7 L Oxyhemoglobin 90.7 L Sodium Potassium Chloride Carbon Dioxide BUN Creatinine Glucose POC Glucose 108 H 153 H Lactic Acid Calcium Magnesium Iron TIBC Ferritin AST ALT Lactate Dehydrogenase Troponin T C-Reactive Protein Total Protein Albumin Cholesterol LDL Cholesterol Direct HDL Cholesterol Urine WBC (Auto) Vancomycin Trough Coronavirus (PCR) Crossmatch Allied health notes reviewed: nursing
--- NOTE | 2019-07-08 15:27 | Progress Note ---
Assessment and Plan Cultures: 07/03/2019 urine culture: No growth 07/03/2019 Tracheal aspirate: E.coli A/P: 69-year-old male with CVA, hypertension, dementia, schizophrenia, alcohol use disorder was admitted to the emergency room after being brought in by EMS with progressive shortness of breath and unresponsiveness. He was noted to have agonal breathing and a faint pulse requiring CPR. It seems patient was on hospice recently. #Shock, likely septic: Lactic acidosis #Severe COVID-19 disease and pneumonia: Elevated markers #Acute respiratory failure: on mechanical ventilation. #Transaminitis: Likely from COVID-19, shock Recs: complete 5 days of Plaquenil Discontinued cefepime, vancomycin Started IV Ceftriaxone Prognosis remains extremely poor. Agree with DNR, consider palliative care/hospice Yanna Calzada MD, FACP [facility] C: [phone] O: [phone] F: [phone] Subjective Date of service: 07/08/19 Principal diagnosis: Bilateral pneumonia, severe sepsis with septic shock, encephalopathy Interval history: No fever. Remains on the vent. Objective - Exam Narrative Exam: Physical Exam (reviewed in chart due to PPE conservation) Constitutional: intubated, sedated, on the vent Head, Ears, Nose: normocephalic, atraumatic Eyes: limited due to PPE conservation strategy Neck: intubated Oral: intubated Cardiovascular: limited due to PPE conservation strategy Respiratory: limited due to PPE conservation strategy GI: limited due to PPE conservation strategy Musculoskeletal: limited due to PPE conservation strategy Skin: limited due to PPE conservation strategy Hem/Lymphatic: limited due to PPE conservation strategy Psych: no agitation Neurological: sedated, intubated, on the vent, exam limited - Constitutional Vitals: Vital Signs Temp Pulse Resp BP Pulse Ox 98.6 F 123 H 25 H 127/60 97 07/08/19 12:00 07/08/19 12:50 07/08/19 10:00 07/08/19 10:40 07/08/19 12:50 Temperature -Last 24 Hours Temperature 98.6 F Temperature 98.6 F Temperature 99.7 F Temperature 99.3 F Temperature 97.8 F - Labs CBC & Chem 7: 07/07/19 22:00 07/07/19 05:34 Labs: Abnormal lab results 07/07/19 07/07/19 07/07/19 Range/Units 15:58 17:42 22:00 Hgb 8.1 L 8.0 L (11.8-15.2) gm/dl Hct 24.2 L 23.4 L (35.5-45.6) % D-Dimer (0-234) ng/mlDDU ABG pO2 (80.0-90.0) mm Hg ABG O2 Saturation (95.0-99.0) % ABG Hemoglobin (14.0-18.0) gm/dl Oxyhemoglobin (95.0-99.0) % POC Glucose 107 H (70-105) Ferritin (13.0-400.0) ng/mL Lactate Dehydrogenase (91-180) units/L C-Reactive Protein (0.00-1.30) mg/dL 07/07/19 07/08/19 07/08/19 Range/Units 23:53 00:45 00:45 Hgb (11.8-15.2) gm/dl Hct (35.5-45.6) % D-Dimer 1142.18 H (0-234) ng/mlDDU ABG pO2 (80.0-90.0) mm Hg ABG O2 Saturation (95.0-99.0) % ABG Hemoglobin (14.0-18.0) gm/dl Oxyhemoglobin (95.0-99.0) % POC Glucose 117 H (70-105) Ferritin 839.0 H (13.0-400.0) ng/mL Lactate Dehydrogenase (91-180) units/L C-Reactive Protein (0.00-1.30) mg/dL 07/08/19 07/08/19 07/08/19 Range/Units 00:45 04:30 05:11 Hgb (11.8-15.2) gm/dl Hct (35.5-45.6) % D-Dimer (0-234) ng/mlDDU ABG pO2 66.0 L (80.0-90.0) mm Hg ABG O2 Saturation 92.3 L (95.0-99.0) % ABG Hemoglobin 7.7 L (14.0-18.0) gm/dl Oxyhemoglobin 90.7 L (95.0-99.0) % POC Glucose 108 H (70-105) Ferritin (13.0-400.0) ng/mL Lactate Dehydrogenase 253 H (91-180) units/L C-Reactive Protein 18.90 H (0.00-1.30) mg/dL 07/08/19 Range/Units 12:02 Hgb (11.8-15.2) gm/dl Hct (35.5-45.6) % D-Dimer (0-234) ng/mlDDU ABG pO2 (80.0-90.0) mm Hg ABG O2 Saturation (95.0-99.0) % ABG Hemoglobin (14.0-18.0) gm/dl Oxyhemoglobin (95.0-99.0) % POC Glucose 153 H (70-105) Ferritin (13.0-400.0) ng/mL Lactate Dehydrogenase (91-180) units/L C-Reactive Protein (0.00-1.30) mg/dL
--- NOTE | 2019-07-08 15:43 | Progress Note ---
Assessment and Plan 1. Hypoantremia: Suspect SIADH. Sodium level is gradually improving. Sodium bicarbonate through the PEG tube. Monitor Sodium level. Labs ordered but not done. 2. FEN: Metabolic acidosis, improving on Sodium bicarbonate, monitor. Hyperkalemia, improved, monitor. Monitor volume status and lytes. 3. Acute hypoxic respiratory failure: Currently intubated and on vent. Pulmonary following. 4. Severe Sepsis, POA. Followed by ID. 5. Severe COVID-19 pneumonia. 6. Shock: Off pressors. BP is better. 7. Microcytic anemia, POA: Monitor. 8. Diabetes mellitus. 9. COPD. 10. Encephalopathy, POA: Metabolic. - Subjective history: Patient was only seen from outside the glass door to prevent exposure to COVID- 19. Also the PPE is either not available or very limited. - General Appearance General appearance: intubated on ventilator HEENT: not examined Neck: not examined Respiratory: not examined Heart: not examined Gastrointestinal: not examined Integumentary: not examined Neurologic: not examined Ext: not examined Subjective Date of service: 07/08/19 Principal diagnosis: Bilateral pneumonia, severe sepsis with septic shock, encephalopathy Objective - Vital Signs Vital signs: Vital Signs - 12hr 07/08/19 07/08/19 07/08/19 04:00 04:01 04:31 Temperature Pulse Rate 122 H 121 H 127 H Respiratory 27 H 29 H Rate Blood Pressure 107/52 115/67 O2 Sat by Pulse 92 94 Oximetry 07/08/19 07/08/19 07/08/19 05:00 05:01 05:31 Temperature Pulse Rate 126 H 126 H 126 H Respiratory 27 H 25 H Rate Blood Pressure 113/64 113/64 113/58 O2 Sat by Pulse 96 96 96 Oximetry 07/08/19 07/08/19 07/08/19 06:00 06:30 07:00 Temperature Pulse Rate 132 H 126 H 125 H Respiratory 29 H 27 H 27 H Rate Blood Pressure 130/67 117/60 117/62 O2 Sat by Pulse 91 95 95 Oximetry 07/08/19 07/08/19 07/08/19 07:30 08:00 08:30 Temperature 98.6 F Pulse Rate 126 H 125 H 125 H Respiratory 26 H 27 H 26 H Rate Blood Pressure 119/63 115/65 125/59 O2 Sat by Pulse 95 96 95 Oximetry 07/08/19 07/08/19 07/08/19 09:00 09:30 10:00 Temperature Pulse Rate 125 H 128 H 123 H Respiratory 28 H 31 H 25 H Rate Blood Pressure 116/65 131/80 124/66 O2 Sat by Pulse 96 94 94 Oximetry 07/08/19 07/08/19 07/08/19 10:40 12:00 12:50 Temperature 98.6 F Pulse Rate 123 H 123 H Respiratory Rate Blood Pressure 127/60 O2 Sat by Pulse 97 97 Oximetry - Lab 07/07/19 22:00 07/07/19 05:34 Most recent lab results ABG pH 7.416 pH Units (7.350-7.450) 07/08/19 04:30 ABG pCO2 38.1 mm Hg 07/08/19 04:30 ABG pO2 66.0 mm Hg (80.0-90.0) L 07/08/19 04:30 ABG HCO3 23.9 mmol/L (20.0-26.0) 07/08/19 04:30 ABG O2 Saturation 92.3 % (95.0-99.0) L 07/08/19 04:30 Calcium 8.0 mg/dL (8.4-10.2) L 07/07/19 05:34 Phosphorus 3.60 mg/dL (2.5-4.5) 07/05/19 04:00 Magnesium 1.70 mg/dL (1.7-2.3) 07/06/19 03:49 Medications & Allergies - Medications Allergies/Adverse Reactions: Allergies No Known Allergies Allergy (Unverified 09/09/16 16:29) Home Medications: Home Medications Medication Instructions Recorded Confirmed Last Taken Type Acetaminophen [Tylenol] 500 mg PO TID 07/04/19 07/04/19 Unknown History Albuterol Sulfate [Proair 90 mcg IH TID 07/04/19 07/04/19 Unknown History Digihaler] Amlodipine Besylate [Norvasc] 2.5 mg PO QDAY 07/04/19 07/04/19 Unknown History Aspirin [Aspirin BABY CHEW TAB] 81 mg PO QDAY 07/04/19 07/04/19 Unknown History Atorvastatin Calcium [Lipitor] 80 mg PO QDAY 07/04/19 07/04/19 Unknown History Benztropine Mesylate 0.5 mg PO QDAY 07/04/19 07/04/19 Unknown History Budesonide/Formoterol Fumarate 10.2 gm IH BID 07/04/19 07/04/19 Unknown History [Budesonide-Formoterol 160-4.5] Divalproex ER [DepaKOTE ER] 1,000 mg PO QDAY 07/04/19 07/04/19 Unknown History Docusate Sodium [Colace] 100 mg PO QDAY 07/04/19 07/04/19 Unknown History Folic Acid [Folvite] 1 mg PO QDAY 07/04/19 07/04/19 Unknown History Hydrophilic Ointment [Dermafix] 113 gm TP QDAY 07/04/19 07/04/19 Unknown History Losartan [Cozaar] 100 mg PO QDAY 07/04/19 07/04/19 Unknown History Metformin HCl [Metformin HCl ER] 500 mg PO QDAY 07/04/19 07/04/19 Unknown History Metoprolol Tartrate 25 mg PO BID 07/04/19 07/04/19 Unknown History Multivit with Minerals/Ginseng 1 each PO QDAY 07/04/19 07/04/19 Unknown History [Super Ginseng Multivit Cap] Quetiapine Fumarate [SEROquel Xr] 400 mg PO QHS 07/04/19 07/04/19 Unknown History Sertraline HCl [Zoloft] 100 mg PO QDAY 07/04/19 07/04/19 Unknown History Sildenafil Citrate [Viagra] 100 mg PO QDAY PRN 07/04/19 07/04/19 Unknown History Tamsulosin [Flomax] 0.4 mg PO QDAY 07/04/19 07/04/19 Unknown History Active Medications: Generic Name Dose Route Start Last Admin Trade Name Freq PRN Reason Stop Dose Admin Acetaminophen 650 mg 07/04/19 04:24 07/06/19 12:00 Tylenol PO 650 mg Q6H PRN Administration Pain MILD(1-3)/Fever >100.5/MURO Acetaminophen 650 mg 07/04/19 04:24 Tylenol ID Q6H PRN Pain MILD(1-3)/Fever >100.5/MURO Lipase/Protease/Amylase 1 each 07/04/19 10:04 Pancrewhitley Gilbert 10,500 Unit FEEDTUBE PRN PRN For Clogged Feeding Tube Aspirin 81 mg 07/05/19 10:00 07/08/19 09:20 Baby Aspirin PO 81 mg QDAY TAMMIE Administration Dextrose 50 ml 07/04/19 06:54 D50w (25gm) Syringe IV Q30MIN PRN Hypoglycemia Protocol Famotidine 20 mg 07/04/19 10:00 07/08/19 09:20 Pepcid IV 20 mg BID TAMMIE Administration Folic Acid 1 mg 07/05/19 10:00 07/08/19 09:20 Folvite PO 1 mg QDAY TAMMIE Administration Hydrophilic Ointment 1 applic 07/03/19 19:56 07/05/19 17:42 Vaseline Lip Therapy TP 1 applic Q2HR PRN Administration Dry Lips Hydroxychloroquine Sulfate 200 mg 07/06/19 10:00 07/08/19 09:20 Plaquenil PO 07/09/19 23:59 200 mg BID TAMMIE Administration Norepinephrine 4 mg in 250 mls @ 7.5 mls/hr 07/03/19 23:00 07/07/19 10:15 Levophed Drip 4 Mg/Ns 250 Ml IV 0 mcg/min TITR TAMMIE 0 mls/hr Titration Protocol 2 MCG/MIN Ceftriaxone Sodium 1 gm in 50 mls @ 100 mls/hr 07/08/19 20:00 Rocephin/Ns 1 Gm/50 Ml IV Q24H [facility] Protocol Insulin Human Lispro 0 unit 07/07/19 12:00 07/08/19 05:22 Humalog SUB-Q Not Given Q6HR [facility] Protocol Levetiracetam 750 mg 07/06/19 11:00 07/08/19 09:20 Keppra FEEDTUBE 750 mg Q12HR TAMMIE Administration Morphine Sulfate 2 mg 07/04/19 04:24 07/07/19 22:30 Morphine IV 2 mg Q4H PRN Administration Pain, Moderate (4-6) Multi-Ingred Cream/Lotion/Oil/Oint 1 applic 07/03/19 19:56 07/05/19 13:19 Artificial Tears Ophth Oint OU 1 applic Q4HR PRN Administration Dry Eye(s) Naloxone HCl 0.1 mg 07/04/19 04:24 Naloxone IV Q2MIN PRN Res Rate </= 8 or 02 SAT < 92% Simple Syrup 15 ml 07/04/19 10:04 04/16/20 17:42 Simple Syrup FEEDTUBE 15 ml PRN PRN Administration Hypoglycemia Simple Syrup 30 ml 07/04/19 10:04 Simple Syrup FEEDTUBE PRN PRN Hypoglycemia Sodium Bicarbonate 325 mg 07/04/19 10:04 Sodium Bicarbonate FEEDTUBE PRN PRN For Clogged Feeding Tube Sodium Bicarbonate 650 mg 07/05/19 14:00 07/08/19 14:30 Sodium Bicarbonate PO 650 mg TID TAMMIE Administration Sodium Chloride 10 ml 07/04/19 10:00 07/08/19 09:20 Sodium Chloride Flush Syringe 10 Ml IV 10 ml BID TAMMIE Administration Sodium Chloride 10 ml 07/04/19 04:24 Sodium Chloride Flush Syringe 10 Ml IV PRN PRN LINE FLUSH
[2019-07-08 17:01] LABS: BUN/Creatinine Ratio 45; Blood Urea Nitrogen 27 mg/dL (9-20); Calcium 8.8 mg/dL (8.4-10.2); Hemolysis Index 13
[2019-07-08] MEDS: cefTRIAXone/NS 1 GM/50 ML 1 GM/50 ML BAG IV SCH (20:34)
[2019-07-09] MEDS: INSULIN LISPRO 100 UNIT/ML SUB-Q SCH ×4 (00:01→18:45)
[2019-07-09 05:21] LABS: Hematocrit 22.8 % (35.5-45.6); Hemoglobin 7.4 gm/dl (11.8-15.2); Mean Corpuscular HGB Conc 33 % (32-34); Mean Corpuscular Volume 82 fl (84-94); Platelet Count 130 K/mm3 (140-440); Red Blood Count 2.77 M/mm3 (3.65-5.03)
[2019-07-09 05:39] LABS: Red Cell Distribution Width 20.9 % (13.2-15.2)
[2019-07-09 05:42] LABS: BUN/Creatinine Ratio 52; Blood Urea Nitrogen 26 mg/dL (9-20); Calcium 8.7 mg/dL (8.4-10.2); Hemolysis Index 1
[2019-07-09 06:08] LABS: ABG Base Excess 1.2 mmol/L (-2.0-3.0); ABG HCO3 25.1 mmol/L (20.0-26.0); ABG PCO2 37.6 mm Hg; ABG PH 7.442 pH Units (7.350-7.450); ABG PO2 62.8 mm Hg (80.0-90.0)
[2019-07-09 06:11] LABS: ABG Methemoglobin 0.4 % (0.0-1.5); ABG Oxygen Saturation 95.6 % (95.0-99.0)
[2019-07-09] MEDS: levETIRAcetam 500 MG/5 ML ORAL LIQD FEEDTUBE SCH ×3 (09:14→22:04)
[2019-07-09] MEDS: ASPIRIN 81 MG TAB CHEW PO SCH (09:14)
[2019-07-09] MEDS: FOLIC ACID 1 MG TAB PO SCH (09:14)
[2019-07-09] MEDS: FAMOTIDINE 20 MG/2 ML INJ IV SCH ×3 (09:14→22:04)
[2019-07-09] MEDS: HYDROXYCHLOROQUINE 200 MG TAB PO SCH ×3 (09:14→22:04)
[2019-07-09] MEDS: SODIUM BICARBONATE 650 MG TAB PO SCH ×3 (09:14→20:42)
[2019-07-09] MEDS ORDERED: POTASSIUM CHLORIDE ER 20 MEQ TAB PO NR (09:36)
[2019-07-09 10:12] LABS: Anisocytosis 1+; Band Neutrophils # (Manual) 2.1 K/mm3; Basophils % (Manual) 0 % (0.0-1.8); Eosinophils % (Manual) 0 % (0.0-4.3); Myelocytes # (Manual) 0.6 K/mm3; Total Cells Counted 100
[2019-07-09 10:13] LABS: Hypochromasia Few; Ovalocytes Few; Platelet Estimate Consistent w Auto
--- NOTE | 2019-07-09 12:08 | Progress Note ---
Assessment and Plan Cultures: 07/03/2019 urine culture: No growth 07/03/2019 Tracheal aspirate: E.coli A/P: 69-year-old male with CVA, hypertension, dementia, schizophrenia, alcohol use disorder was admitted to the emergency room after being brought in by EMS with progressive shortness of breath and unresponsiveness. He was noted to have agonal breathing and a faint pulse requiring CPR. It seems patient was on hospice recently. #Shock, likely septic: Lactic acidosis #Severe COVID-19 disease and pneumonia: Elevated markers. #Acute respiratory failure: on mechanical ventilation. #Transaminitis: Likely from COVID-19, shock Recs: complete 5 days of Plaquenil continue IV Ceftriaxone, complete total 7 days of abx Prognosis remains extremely poor. Agree with DNR, consider palliative care/hospice Yanna Calzada MD, FACP [facility] C: [phone] O: [phone] F: [phone] Subjective Date of service: 07/09/19 Principal diagnosis: Bilateral pneumonia, severe sepsis with septic shock, encephalopathy Interval history: No fever. Remains intubated, on the vent. Objective - Exam Narrative Exam: Physical Exam (reviewed in chart due to PPE conservation) Constitutional: intubated, sedated, on the vent Head, Ears, Nose: normocephalic, atraumatic Eyes: limited due to PPE conservation strategy Neck: intubated Oral: intubated Cardiovascular: limited due to PPE conservation strategy Respiratory: limited due to PPE conservation strategy GI: limited due to PPE conservation strategy Musculoskeletal: limited due to PPE conservation strategy Skin: limited due to PPE conservation strategy Hem/Lymphatic: limited due to PPE conservation strategy Psych: no agitation Neurological: sedated, intubated, on the vent, exam limited - Constitutional Vitals: Vital Signs Temp Pulse Resp BP Pulse Ox 98.8 F 109 H 25 H 138/80 100 07/09/19 04:00 07/09/19 11:47 07/09/19 06:30 07/09/19 11:47 07/09/19 11:47 Temperature -Last 24 Hours Temperature 98.8 F Temperature 98.9 F Temperature 98.8 F - Labs CBC & Chem 7: 07/09/19 04:30 07/09/19 04:30 Labs: Abnormal lab results 07/08/19 07/08/19 07/08/19 Range/Units 16:15 18:22 23:35 WBC (4.5-11.0) K/mm3 RBC (3.65-5.03) M/mm3 Hgb (11.8-15.2) gm/dl Hct (35.5-45.6) % MCV (84-94) fl MCH (28-32) pg RDW (13.2-15.2) % Plt Count (140-440) K/mm3 Seg Neuts % (Manual) (40.0-70.0) % Lymphocytes % (Manual) (13.4-35.0) % Seg Neutrophils # Man (1.8-7.7) K/mm3 Lymphocytes # (Manual) (1.2-5.4) K/mm3 ABG pO2 (80.0-90.0) mm Hg ABG Hemoglobin (14.0-18.0) gm/dl Oxyhemoglobin (95.0-99.0) % Sodium 134 L (137-145) mmol/L Potassium 3.3 L (3.6-5.0) mmol/L Carbon Dioxide 21 L (22-30) mmol/L BUN 27 H (9-20) mg/dL Creatinine 0.6 L (0.8-1.5) mg/dL Glucose 146 H (75-100) mg/dL POC Glucose 134 H 133 H (70-105) 07/09/19 07/09/19 07/09/19 Range/Units 04:30 04:30 05:00 WBC 18.9 H (4.5-11.0) K/mm3 RBC 2.77 L (3.65-5.03) M/mm3 Hgb 7.4 L (11.8-15.2) gm/dl Hct 22.8 L (35.5-45.6) % MCV 82 L (84-94) fl MCH 27 L (28-32) pg RDW 20.9 H (13.2-15.2) % Plt Count 130 L (140-440) K/mm3 Seg Neuts % (Manual) 84.0 H (40.0-70.0) % Lymphocytes % (Manual) 0 L (13.4-35.0) % Seg Neutrophils # Man 15.9 H (1.8-7.7) K/mm3 Lymphocytes # (Manual) 0.0 L (1.2-5.4) K/mm3 ABG pO2 (80.0-90.0) mm Hg ABG Hemoglobin (14.0-18.0) gm/dl Oxyhemoglobin (95.0-99.0) % Sodium (137-145) mmol/L Potassium 3.1 L (3.6-5.0) mmol/L Carbon Dioxide (22-30) mmol/L BUN 26 H (9-20) mg/dL Creatinine 0.5 L (0.8-1.5) mg/dL Glucose 125 H (75-100) mg/dL POC Glucose 155 H (70-105) 07/09/19 Range/Units 05:55 WBC (4.5-11.0) K/mm3 RBC (3.65-5.03) M/mm3 Hgb (11.8-15.2) gm/dl Hct (35.5-45.6) % MCV (84-94) fl MCH (28-32) pg RDW (13.2-15.2) % Plt Count (140-440) K/mm3 Seg Neuts % (Manual) (40.0-70.0) % Lymphocytes % (Manual) (13.4-35.0) % Seg Neutrophils # Man (1.8-7.7) K/mm3 Lymphocytes # (Manual) (1.2-5.4) K/mm3 ABG pO2 62.8 L (80.0-90.0) mm Hg ABG Hemoglobin 6.1 L (14.0-18.0) gm/dl Oxyhemoglobin 93.9 L (95.0-99.0) % Sodium (137-145) mmol/L Potassium (3.6-5.0) mmol/L Carbon Dioxide (22-30) mmol/L BUN (9-20) mg/dL Creatinine (0.8-1.5) mg/dL Glucose (75-100) mg/dL POC Glucose (70-105)
--- NOTE | 2019-07-09 13:22 | Progress Note ---
Assessment and Plan S/p Cardiopulmonary arrest with ROSC Severe Sepsis with septic shock. Acute hypoxemic respiratory failure on MVS COVID-19 positive with elevated markers Bilateral pneumonia Elevated LFTs. Oropharyngeal dysphagia s/p PEG Acute kidney injury Decubitus ulcers-unstageable Moderate protein calorie malnutriton [id number] metabolic acidosis Leukocytosis -improving Thrombocytopenia Microcytic anemia -Decrease PEEP to 6, ABG in the morning and initiate spontaneous breathing trials -Complete Plaquenil therapy per ID while daily monitoring QTc -Complete Cefepime therapy, e-escalate per sensitivities. ID following -Has a femoral triple lumen catheter. Plan to discontinue the femoral CVC, place peripheral IV lines -Trend platelet count and monitor for bleeding -Bowel regimen - continue airborne, droplet and contact isolation for COVID-19 - continue wound care per WCT - sedation prn for target RASS 0 to -1 - continue to wean supplemental oxygen for target O2 sat's > 90% - Daily SAT's and SBT assessment as tolerated - VAP bundle addressed - continue lung protective strategies - continue bronchodilators with pulmonary hygiene per RT - wean per pulmonary driven protocols otherwise - accuchecks with glycemic control per SSI (While critically ill target blood glucose of 140-180 mg/dL; avoid hypoglycemia) - continue to avoid benzodiazepines, reduce the possibility of delirium - prn analgesia per CPOT score - Maintenance of sleep-wake cycle, avoid delirium - continue enteral nutritional support at goal rate as tolerated - VTE prophylaxis - PT/OT/ROM exercises - continue mobility protocol, off loading and skin assessment for pressure ulcer prevention - Monitor hemodynamics closely -Wright catheter in this critically ill patient with unstageable sacral decubitus ulcer -PEG site care, appears to be leaking around the site - continue other care per attending / other consultants - discharge planning ongoing concurrently .... Re-evaluate in am & prn CONDITION: CRITICAL PROGNOSIS: GUARDED CODE STATUS: DNAR Called his family to discuss goals of care, unable to make contact with them He was apparently in hospice prior to this admission The high probability of a clinically significant, sudden or life-threatening deterioration of the [respiratory & cardiovascular] system(s) required my full and direct attention, intervention and personal management. The aggregate criti elias care time was [35] minutes without overlap. Time includes spent on; [x] Data Review and interpretation [x] Patient assessment and monitoring of vital signs [x] Documentation [x] Medication orders and management Subjective Date of service: 07/09/19 Principal diagnosis: Bilateral pneumonia, severe sepsis with septic shock, encephalopathy Interval history: The patient is a 69-year-old male with CVA, hypertension, dementia, schizophrenia, alcohol use disorder was admitted to the emergency room after being brought in by EMS with progressive shortness of breath and unresponsiveness. He was noted to have agonal breathing and a faint pulse requiring CPR. Patient was intubated and brought to the hospital. It seems, patient was on home hospice. Currently, remains critically ill, intubated, on mechanical ventilation. His COVID test resulted positive. Patient is seen today for: s/p cardiopulmonary arrest with ROSC;Ac hypoxemic Resp failure on MVS; Severe sepsis with Shock; Bilateral Pneumonia; POSITIVE coronavirus-19 infection. Seen and examined at bedside; 24hour events reviewed; nursing and respiratory care staff consulted; no adverse overnight events reported to me; resting in has femoral catheter, and femoral CVC On cefepime . No reported fevers. On MVS and tolerating it well Current setting ac-vc 25/500/50%/PEEP 8 ABG 7.44/38/63/25 Objective - Exam Narrative Exam: Vitals reviewed) Vital Signs - 12hr 07/09/19 07/09/19 07/09/19 01:30 02:00 02:30 Temperature Pulse Rate 118 H 119 H 111 H Respiratory 25 H 26 H 26 H Rate Blood Pressure 126/76 146/80 123/64 O2 Sat by Pulse 96 97 95 Oximetry 07/09/19 07/09/19 07/09/19 03:00 03:30 04:00 Temperature 98.8 F Pulse Rate 112 H 112 H 119 H Respiratory 25 H 25 H 26 H Rate Blood Pressure 120/69 122/73 139/82 O2 Sat by Pulse 96 96 98 Oximetry 07/09/19 07/09/19 07/09/19 04:30 05:00 05:30 Temperature Pulse Rate 115 H 110 H 108 H Respiratory 25 H 25 H 25 H Rate Blood Pressure 126/69 122/68 120/67 O2 Sat by Pulse 97 98 98 Oximetry 07/09/19 07/09/19 07/09/19 05:50 06:00 06:30 Temperature Pulse Rate 105 H 109 H 107 H Respiratory 25 H 25 H Rate Blood Pressure 124/70 131/78 138/78 O2 Sat by Pulse 99 99 100 Oximetry 07/09/19 07/09/19 08:17 11:47 Temperature Pulse Rate 109 H 109 H Respiratory Rate Blood Pressure 131/76 138/80 O2 Sat by Pulse 99 100 Oximetry Constitutional: appears uncomfortable, other (eelderly and chronically ill looking AAM, normocephalic with mildly increased respiratory effort at rest) Eyes: non-icteric ENT: oropharynx moist, other (ETT 24 cm RUTH) Neck: supple, no lymphadenopathy, no JVD Effort: mildly labored Ascultation: Bilateral: diminished breath sounds, rhonchi Percussion: Bilateral: not dull Cardiovascular: regular rate and rhythm Gastrointestinal: normoactive bowel sounds, soft, non-tender, non-distended, other (+ PEG tube with mild TF leakage) Integumentary: decubitus ulcer Extremities: no cyanosis, no edema, pink and warm, pulses normal, other (contracted lower extremities) Neurologic: unable to assess (appears more awake this morning, tracking voice) Psychiatric: other (Unable to assess re: AMS) CBC and BMP: 07/09/19 04:30 07/09/19 04:30 ABG, PT/INR, D-dimer: ABG ABG pH 7.442 pH Units (7.350-7.450) 07/09/19 05:55 ABG pCO2 37.6 mm Hg 07/09/19 05:55 ABG pO2 62.8 mm Hg (80.0-90.0) L 07/09/19 05:55 ABG O2 Saturation 95.6 % (95.0-99.0) 07/09/19 05:55 PT/INR, D-dimer PT 16.0 Sec. (12.2-14.9) H 07/03/19 22:20 INR 1.26 (0.87-1.13) H 07/03/19 22:20 D-Dimer 1142.18 ng/mlDDU (0-234) H 07/08/19 00:45 Abnormal lab findings: Abnormal Labs 07/03/19 07/03/19 07/03/19 19:57 21:10 21:13 WBC RBC Hgb Hct MCV MCH RDW Plt Count Seg Neuts % (Manual) Lymphocytes % (Manual) Seg Neutrophils # Man Lymphocytes # (Manual) PT INR D-Dimer ABG pH 7.238 L ABG pO2 210.8 H ABG HCO3 15.4 L ABG O2 Saturation 99.2 H ABG Base Excess -11.1 L ABG Hemoglobin 8.0 L Oxyhemoglobin Sodium 124 L Potassium Chloride 92.9 L Carbon Dioxide 10 L BUN 23 H Creatinine 0.5 L Glucose 118 H POC Glucose Lactic Acid Calcium 7.0 L Magnesium Iron TIBC Ferritin AST 70 H ALT 88 H Lactate Dehydrogenase Troponin T 0.032 H C-Reactive Protein Total Protein 5.0 L Albumin 1.8 L Cholesterol 47 L LDL Cholesterol Direct 25 L HDL Cholesterol 20 L Urine WBC (Auto) 12.0 H Vancomycin Trough Coronavirus (PCR) Crossmatch 07/03/19 07/03/19 07/03/19 22:20 22:20 22:20 WBC 30.5 H RBC 2.96 L Hgb 7.7 L Hct 23.9 L MCV 81 L MCH 26 L RDW 18.6 H Plt Count 459 H Seg Neuts % (Manual) 93.0 H Lymphocytes % (Manual) 0.5 L Seg Neutrophils # Man 28.4 H Lymphocytes # (Manual) 0.2 L PT 16.0 H INR 1.26 H D-Dimer ABG pH ABG pO2 ABG HCO3 ABG O2 Saturation ABG Base Excess ABG Hemoglobin Oxyhemoglobin Sodium Potassium Chloride Carbon Dioxide BUN Creatinine Glucose POC Glucose Lactic Acid 6.90 H* Calcium Magnesium Iron TIBC Ferritin AST ALT Lactate Dehydrogenase Troponin T C-Reactive Protein Total Protein Albumin Cholesterol LDL Cholesterol Direct HDL Cholesterol Urine WBC (Auto) Vancomycin Trough Coronavirus (PCR) Crossmatch 07/03/19 07/04/19 07/04/19 23:58 05:15 07:05 WBC 17.1 H RBC 3.22 L Hgb 8.3 L Hct 25.4 L MCV 79 L MCH 26 L RDW 18.6 H Plt Count Seg Neuts % (Manual) 74.0 H Lymphocytes % (Manual) 0 L Seg Neutrophils # Man 12.7 H Lymphocytes # (Manual) 0.0 L PT INR D-Dimer ABG pH 7.310 L ABG pO2 73.2 L ABG HCO3 17.8 L ABG O2 Saturation 93.8 L ABG Base Excess -7.7 L ABG Hemoglobin 9.6 L Oxyhemoglobin 92.3 L Sodium Potassium Chloride Carbon Dioxide BUN Creatinine Glucose POC Glucose Lactic Acid 7.10 H* Calcium Magnesium Iron TIBC Ferritin AST ALT Lactate Dehydrogenase Troponin T C-Reactive Protein Total Protein Albumin Cholesterol LDL Cholesterol Direct HDL Cholesterol Urine WBC (Auto) Vancomycin Trough Coronavirus (PCR) Crossmatch 07/04/19 07/04/19 07/04/19 07:05 07:05 07:05 WBC RBC Hgb Hct MCV MCH RDW Plt Count Seg Neuts % (Manual) Lymphocytes % (Manual) Seg Neutrophils # Man Lymphocytes # (Manual) PT INR D-Dimer ABG pH ABG pO2 ABG HCO3 ABG O2 Saturation ABG Base Excess ABG Hemoglobin Oxyhemoglobin Sodium 120 L Potassium 5.1 H Chloride 90.0 L Carbon Dioxide 14 L BUN 26 H Creatinine 0.5 L Glucose POC Glucose Lactic Acid 3.30 H* Calcium 8.0 L Magnesium Iron 9 L TIBC 97 L Ferritin AST 73 H ALT 91 H Lactate Dehydrogenase Troponin T C-Reactive Protein Total Protein 5.5 L Albumin 2.0 L Cholesterol LDL Cholesterol Direct HDL Cholesterol Urine WBC (Auto) Vancomycin Trough Coronavirus (PCR) Crossmatch 07/04/19 07/04/19 07/04/19 09:39 09:39 09:39 WBC RBC Hgb Hct MCV MCH RDW Plt Count Seg Neuts % (Manual) Lymphocytes % (Manual) Seg Neutrophils # Man Lymphocytes # (Manual) PT INR D-Dimer 1419.14 H ABG pH ABG pO2 ABG HCO3 ABG O2 Saturation ABG Base Excess ABG Hemoglobin Oxyhemoglobin Sodium Potassium Chloride Carbon Dioxide BUN Creatinine Glucose POC Glucose Lactic Acid Calcium Magnesium Iron TIBC Ferritin 1719.0 H AST ALT Lactate Dehydrogenase 234 H Troponin T C-Reactive Protein 15.50 H Total Protein Albumin Cholesterol LDL Cholesterol Direct HDL Cholesterol Urine WBC (Auto) Vancomycin Trough Coronavirus (PCR) Crossmatch 07/04/19 07/04/19 07/04/19 10:09 18:08 18:28 WBC RBC Hgb Hct MCV MCH RDW Plt Count Seg Neuts % (Manual) Lymphocytes % (Manual) Seg Neutrophils # Man Lymphocytes # (Manual) PT INR D-Dimer ABG pH ABG pO2 ABG HCO3 ABG O2 Saturation ABG Base Excess ABG Hemoglobin Oxyhemoglobin Sodium 117 L* Potassium 5.6 H Chloride 90.3 L Carbon Dioxide 16 L BUN 28 H Creatinine 0.5 L Glucose 58 L POC Glucose 65 L Lactic Acid Calcium 8.2 L Magnesium Iron TIBC Ferritin AST ALT Lactate Dehydrogenase Troponin T C-Reactive Protein Total Protein Albumin Cholesterol LDL Cholesterol Direct HDL Cholesterol Urine WBC (Auto) Vancomycin Trough Coronavirus (PCR) Positive A Crossmatch 07/04/19 07/04/19 07/04/19 23:45 Unknown Unknown WBC RBC Hgb Hct MCV MCH RDW Plt Count Seg Neuts % (Manual) Lymphocytes % (Manual) Seg Neutrophils # Man Lymphocytes # (Manual) PT INR D-Dimer 759.77 H ABG pH ABG pO2 ABG HCO3 ABG O2 Saturation ABG Base Excess ABG Hemoglobin Oxyhemoglobin Sodium 122 L Potassium Chloride 93.0 L Carbon Dioxide 19 L BUN 27 H Creatinine 0.5 L Glucose POC Glucose Lactic Acid Calcium 8.3 L Magnesium Iron TIBC Ferritin 1301.0 H AST ALT Lactate Dehydrogenase Troponin T C-Reactive Protein Total Protein Albumin Cholesterol LDL Cholesterol Direct HDL Cholesterol Urine WBC (Auto) Vancomycin Trough Coronavirus (PCR) Crossmatch 07/04/19 07/05/19 07/05/19 Unknown 03:20 04:00 WBC RBC Hgb Hct MCV MCH RDW Plt Count Seg Neuts % (Manual) Lymphocytes % (Manual) Seg Neutrophils # Man Lymphocytes # (Manual) PT INR D-Dimer ABG pH ABG pO2 60.6 L ABG HCO3 ABG O2 Saturation 93.5 L ABG Base Excess -2.4 L ABG Hemoglobin 6.9 L Oxyhemoglobin 92.0 L Sodium 125 L Potassium Chloride 92.6 L Carbon Dioxide 19 L BUN 24 H Creatinine 0.6 L Glucose POC Glucose Lactic Acid Calcium 8.2 L Magnesium 1.40 L Iron TIBC Ferritin AST ALT Lactate Dehydrogenase 242 H Troponin T C-Reactive Protein 16.70 H Total Protein Albumin Cholesterol LDL Cholesterol Direct HDL Cholesterol Urine WBC (Auto) Vancomycin Trough Coronavirus (PCR) Crossmatch 07/05/19 07/05/19 07/05/19 10:11 16:15 17:54 WBC 46.4 H* RBC 2.77 L Hgb 7.2 L Hct 21.9 L MCV 79 L MCH 26 L RDW 19.0 H Plt Count Seg Neuts % (Manual) 82.0 H Lymphocytes % (Manual) 1.0 L Seg Neutrophils # Man 38.0 H Lymphocytes # (Manual) 0.5 L PT INR D-Dimer ABG pH ABG pO2 ABG HCO3 ABG O2 Saturation ABG Base Excess ABG Hemoglobin Oxyhemoglobin Sodium Potassium Chloride Carbon Dioxide BUN Creatinine Glucose POC Glucose 69 L Lactic Acid Calcium Magnesium Iron TIBC Ferritin AST ALT Lactate Dehydrogenase Troponin T C-Reactive Protein Total Protein Albumin Cholesterol LDL Cholesterol Direct HDL Cholesterol Urine WBC (Auto) Vancomycin Trough 23.2 H Coronavirus (PCR) Crossmatch 07/05/19 07/06/19 07/06/19 19:58 00:27 00:27 WBC RBC Hgb Hct MCV MCH RDW Plt Count Seg Neuts % (Manual) Lymphocytes % (Manual) Seg Neutrophils # Man Lymphocytes # (Manual) PT INR D-Dimer 1333.22 H ABG pH ABG pO2 ABG HCO3 ABG O2 Saturation ABG Base Excess ABG Hemoglobin Oxyhemoglobin Sodium 127 L Potassium Chloride Carbon Dioxide BUN Creatinine Glucose POC Glucose Lactic Acid Calcium Magnesium Iron TIBC Ferritin 977.1 H AST ALT Lactate Dehydrogenase Troponin T C-Reactive Protein Total Protein Albumin Cholesterol LDL Cholesterol Direct HDL Cholesterol Urine WBC (Auto) Vancomycin Trough Coronavirus (PCR) Crossmatch 07/06/19 07/06/19 07/06/19 00:27 02:00 02:56 WBC RBC Hgb Hct MCV MCH RDW Plt Count Seg Neuts % (Manual) Lymphocytes % (Manual) Seg Neutrophils # Man Lymphocytes # (Manual) PT INR D-Dimer ABG pH ABG pO2 70.3 L ABG HCO3 ABG O2 Saturation 94.8 L ABG Base Excess ABG Hemoglobin 8.0 L Oxyhemoglobin 93.2 L Sodium Potassium Chloride Carbon Dioxide BUN Creatinine Glucose POC Glucose 117 H Lactic Acid Calcium Magnesium Iron TIBC Ferritin AST ALT Lactate Dehydrogenase 236 H Troponin T C-Reactive Protein 22.90 H Total Protein Albumin Cholesterol LDL Cholesterol Direct HDL Cholesterol Urine WBC (Auto) Vancomycin Trough Coronavirus (PCR) Crossmatch 07/06/19 07/06/19 07/06/19 03:49 03:49 07:40 WBC 38.8 H RBC 2.51 L Hgb 6.7 L Hct 19.9 L* MCV 79 L MCH 27 L RDW 19.2 H Plt Count Seg Neuts % (Manual) 90.5 H Lymphocytes % (Manual) 1.0 L Seg Neutrophils # Man 35.1 H Lymphocytes # (Manual) 0.4 L PT INR D-Dimer ABG pH ABG pO2 ABG HCO3 ABG O2 Saturation ABG Base Excess ABG Hemoglobin Oxyhemoglobin Sodium 131 L Potassium Chloride 96.9 L Carbon Dioxide 18 L BUN 23 H Creatinine 0.5 L Glucose POC Glucose Lactic Acid Calcium 8.0 L Magnesium Iron TIBC Ferritin AST ALT Lactate Dehydrogenase Troponin T C-Reactive Protein Total Protein Albumin Cholesterol LDL Cholesterol Direct HDL Cholesterol Urine WBC (Auto) Vancomycin Trough Coronavirus (PCR) Crossmatch See Detail 07/06/19 07/06/19 07/06/19 12:38 14:39 20:00 WBC RBC Hgb Hct MCV MCH RDW Plt Count Seg Neuts % (Manual) Lymphocytes % (Manual) Seg Neutrophils # Man Lymphocytes # (Manual) PT INR D-Dimer ABG pH ABG pO2 ABG HCO3 ABG O2 Saturation ABG Base Excess ABG Hemoglobin Oxyhemoglobin Sodium Potassium Chloride Carbon Dioxide BUN Creatinine Glucose POC Glucose 112 H 111 H 140 H Lactic Acid Calcium Magnesium Iron TIBC Ferritin AST ALT Lactate Dehydrogenase Troponin T C-Reactive Protein Total Protein Albumin Cholesterol LDL Cholesterol Direct HDL Cholesterol Urine WBC (Auto) Vancomycin Trough Coronavirus (PCR) Crossmatch 07/06/19 07/06/19 07/07/19 22:43 22:56 02:20 WBC RBC Hgb 7.9 L Hct 23.1 L MCV MCH RDW Plt Count Seg Neuts % (Manual) Lymphocytes % (Manual) Seg Neutrophils # Man Lymphocytes # (Manual) PT INR D-Dimer ABG pH ABG pO2 ABG HCO3 ABG O2 Saturation ABG Base Excess ABG Hemoglobin Oxyhemoglobin Sodium Potassium Chloride Carbon Dioxide BUN Creatinine Glucose POC Glucose 122 H 149 H Lactic Acid Calcium Magnesium Iron TIBC Ferritin AST ALT Lactate Dehydrogenase Troponin T C-Reactive Protein Total Protein Albumin Cholesterol LDL Cholesterol Direct HDL Cholesterol Urine WBC (Auto) Vancomycin Trough Coronavirus (PCR) Crossmatch 07/07/19 07/07/19 07/07/19 04:35 05:27 05:34 WBC 23.1 H RBC 3.00 L Hgb 8.1 L Hct 24.2 L MCV 81 L MCH 27 L RDW 20.6 H Plt Count Seg Neuts % (Manual) 90.0 H Lymphocytes % (Manual) 2.0 L Seg Neutrophils # Man 20.8 H Lymphocytes # (Manual) 0.5 L PT INR D-Dimer ABG pH ABG pO2 65.8 L ABG HCO3 ABG O2 Saturation 92.2 L ABG Base Excess ABG Hemoglobin 8.3 L Oxyhemoglobin 90.6 L Sodium Potassium Chloride Carbon Dioxide BUN Creatinine Glucose POC Glucose 132 H Lactic Acid Calcium Magnesium Iron TIBC Ferritin AST ALT Lactate Dehydrogenase Troponin T C-Reactive Protein Total Protein Albumin Cholesterol LDL Cholesterol Direct HDL Cholesterol Urine WBC (Auto) Vancomycin Trough Coronavirus (PCR) Crossmatch 07/07/19 07/07/19 07/07/19 05:34 11:50 15:58 WBC RBC Hgb 8.1 L Hct 24.2 L MCV MCH RDW Plt Count Seg Neuts % (Manual) Lymphocytes % (Manual) Seg Neutrophils # Man Lymphocytes # (Manual) PT INR D-Dimer ABG pH ABG pO2 ABG HCO3 ABG O2 Saturation ABG Base Excess ABG Hemoglobin Oxyhemoglobin Sodium 135 L Potassium 3.3 L Chloride Carbon Dioxide 20 L BUN 27 H Creatinine 0.6 L Glucose 121 H POC Glucose 123 H Lactic Acid Calcium 8.0 L Magnesium Iron TIBC Ferritin AST ALT Lactate Dehydrogenase Troponin T C-Reactive Protein Total Protein Albumin Cholesterol LDL Cholesterol Direct HDL Cholesterol Urine WBC (Auto) Vancomycin Trough Coronavirus (PCR) Crossmatch 07/07/19 07/07/19 07/07/19 17:42 22:00 23:53 WBC RBC Hgb 8.0 L Hct 23.4 L MCV MCH RDW Plt Count Seg Neuts % (Manual) Lymphocytes % (Manual) Seg Neutrophils # Man Lymphocytes # (Manual) PT INR D-Dimer ABG pH ABG pO2 ABG HCO3 ABG O2 Saturation ABG Base Excess ABG Hemoglobin Oxyhemoglobin Sodium Potassium Chloride Carbon Dioxide BUN Creatinine Glucose POC Glucose 107 H 117 H Lactic Acid Calcium Magnesium Iron TIBC Ferritin AST ALT Lactate Dehydrogenase Troponin T C-Reactive Protein Total Protein Albumin Cholesterol LDL Cholesterol Direct HDL Cholesterol Urine WBC (Auto) Vancomycin Trough Coronavirus (PCR) Crossmatch 07/08/19 07/08/19 07/08/19 00:45 00:45 00:45 WBC RBC Hgb Hct MCV MCH RDW Plt Count Seg Neuts % (Manual) Lymphocytes % (Manual) Seg Neutrophils # Man Lymphocytes # (Manual) PT INR D-Dimer 1142.18 H ABG pH ABG pO2 ABG HCO3 ABG O2 Saturation ABG Base Excess ABG Hemoglobin Oxyhemoglobin Sodium Potassium Chloride Carbon Dioxide BUN Creatinine Glucose POC Glucose Lactic Acid Calcium Magnesium Iron TIBC Ferritin 839.0 H AST ALT Lactate Dehydrogenase 253 H Troponin T C-Reactive Protein 18.90 H Total Protein Albumin Cholesterol LDL Cholesterol Direct HDL Cholesterol Urine WBC (Auto) Vancomycin Trough Coronavirus (PCR) Crossmatch 07/08/19 07/08/19 07/08/19 04:30 05:11 12:02 WBC RBC Hgb Hct MCV MCH RDW Plt Count Seg Neuts % (Manual) Lymphocytes % (Manual) Seg Neutrophils # Man Lymphocytes # (Manual) PT INR D-Dimer ABG pH ABG pO2 66.0 L ABG HCO3 ABG O2 Saturation 92.3 L ABG Base Excess ABG Hemoglobin 7.7 L Oxyhemoglobin 90.7 L Sodium Potassium Chloride Carbon Dioxide BUN Creatinine Glucose POC Glucose 108 H 153 H Lactic Acid Calcium Magnesium Iron TIBC Ferritin AST ALT Lactate Dehydrogenase Troponin T C-Reactive Protein Total Protein Albumin Cholesterol LDL Cholesterol Direct HDL Cholesterol Urine WBC (Auto) Vancomycin Trough Coronavirus (PCR) Crossmatch 07/08/19 07/08/19 07/08/19 16:15 18:22 23:35 WBC RBC Hgb Hct MCV MCH RDW Plt Count Seg Neuts % (Manual) Lymphocytes % (Manual) Seg Neutrophils # Man Lymphocytes # (Manual) PT INR D-Dimer ABG pH ABG pO2 ABG HCO3 ABG O2 Saturation ABG Base Excess ABG Hemoglobin Oxyhemoglobin Sodium 134 L Potassium 3.3 L Chloride Carbon Dioxide 21 L BUN 27 H Creatinine 0.6 L Glucose 146 H POC Glucose 134 H 133 H Lactic Acid Calcium Magnesium Iron TIBC Ferritin AST ALT Lactate Dehydrogenase Troponin T C-Reactive Protein Total Protein Albumin Cholesterol LDL Cholesterol Direct HDL Cholesterol Urine WBC (Auto) Vancomycin Trough Coronavirus (PCR) Crossmatch 07/09/19 07/09/19 07/09/19 04:30 04:30 05:00 WBC 18.9 H RBC 2.77 L Hgb 7.4 L Hct 22.8 L MCV 82 L MCH 27 L RDW 20.9 H Plt Count 130 L Seg Neuts % (Manual) 84.0 H Lymphocytes % (Manual) 0 L Seg Neutrophils # Man 15.9 H Lymphocytes # (Manual) 0.0 L PT INR D-Dimer ABG pH ABG pO2 ABG HCO3 ABG O2 Saturation ABG Base Excess ABG Hemoglobin Oxyhemoglobin Sodium Potassium 3.1 L Chloride Carbon Dioxide BUN 26 H Creatinine 0.5 L Glucose 125 H POC Glucose 155 H Lactic Acid Calcium Magnesium Iron TIBC Ferritin AST ALT Lactate Dehydrogenase Troponin T C-Reactive Protein Total Protein Albumin Cholesterol LDL Cholesterol Direct HDL Cholesterol Urine WBC (Auto) Vancomycin Trough Coronavirus (PCR) Crossmatch 07/09/19 07/09/19 05:55 12:22 WBC RBC Hgb Hct MCV MCH RDW Plt Count Seg Neuts % (Manual) Lymphocytes % (Manual) Seg Neutrophils # Man Lymphocytes # (Manual) PT INR D-Dimer ABG pH ABG pO2 62.8 L ABG HCO3 ABG O2 Saturation ABG Base Excess ABG Hemoglobin 6.1 L Oxyhemoglobin 93.9 L Sodium Potassium Chloride Carbon Dioxide BUN Creatinine Glucose POC Glucose 115 H Lactic Acid Calcium Magnesium Iron TIBC Ferritin AST ALT Lactate Dehydrogenase Troponin T C-Reactive Protein Total Protein Albumin Cholesterol LDL Cholesterol Direct HDL Cholesterol Urine WBC (Auto) Vancomycin Trough Coronavirus (PCR) Crossmatch Allied health notes reviewed: RT
--- NOTE | 2019-07-09 14:22 | Progress Note ---
Assessment and Plan 1. Hypoantremia: Suspect SIADH. Sodium level has improved. Sodium bicarbonate through the PEG tube. Monitor Sodium level. 2. FEN: Metabolic acidosis, improving on Sodium bicarbonate, monitor. Hypokalemia, replete K, monitor. Monitor volume status and lytes. 3. Acute hypoxic respiratory failure: Currently intubated and on vent. Pulmonary following. 4. Severe Sepsis, POA. Followed by ID. 5. Severe COVID-19 pneumonia. 6. Shock: Off pressors. BP is better. 7. Microcytic anemia, POA: Monitor. 8. Diabetes mellitus. 9. COPD. 10. Encephalopathy, POA: Metabolic. - Subjective history: Patient was only seen from outside the glass door to prevent exposure to COVID- 19. Also the PPE is either not available or very limited. - General Appearance General appearance: intubated on ventilator HEENT: not examined Neck: not examined Respiratory: not examined Heart: not examined Gastrointestinal: not examined Integumentary: not examined Neurologic: not examined Ext: not examined Subjective Date of service: 07/09/19 Principal diagnosis: Bilateral pneumonia, severe sepsis with septic shock, encephalopathy Objective - Vital Signs Vital signs: Vital Signs - 12hr 07/09/19 07/09/19 07/09/19 02:30 03:00 03:30 Temperature Pulse Rate 111 H 112 H 112 H Respiratory 26 H 25 H 25 H Rate Blood Pressure 123/64 120/69 122/73 O2 Sat by Pulse 95 96 96 Oximetry 07/09/19 07/09/19 07/09/19 04:00 04:30 05:00 Temperature 98.8 F Pulse Rate 119 H 115 H 110 H Respiratory 26 H 25 H 25 H Rate Blood Pressure 139/82 126/69 122/68 O2 Sat by Pulse 98 97 98 Oximetry 07/09/19 07/09/19 07/09/19 05:30 05:50 06:00 Temperature Pulse Rate 108 H 105 H 109 H Respiratory 25 H 25 H Rate Blood Pressure 120/67 124/70 131/78 O2 Sat by Pulse 98 99 99 Oximetry 07/09/19 07/09/19 07/09/19 06:30 08:17 11:47 Temperature Pulse Rate 107 H 109 H 109 H Respiratory 25 H Rate Blood Pressure 138/78 131/76 138/80 O2 Sat by Pulse 100 99 100 Oximetry - Lab 07/09/19 04:30 04/20/20 04:30 Most recent lab results ABG pH 7.442 pH Units (7.350-7.450) 07/09/19 05:55 ABG pCO2 37.6 mm Hg 07/09/19 05:55 ABG pO2 62.8 mm Hg (80.0-90.0) L 07/09/19 05:55 ABG HCO3 25.1 mmol/L (20.0-26.0) 07/09/19 05:55 ABG O2 Saturation 95.6 % (95.0-99.0) 07/09/19 05:55 Calcium 8.7 mg/dL (8.4-10.2) 07/09/19 04:30 Phosphorus 3.60 mg/dL (2.5-4.5) 07/05/19 04:00 Magnesium 1.70 mg/dL (1.7-2.3) 07/06/19 03:49 Medications & Allergies - Medications Allergies/Adverse Reactions: Allergies No Known Allergies Allergy (Unverified 09/09/16 16:29) Home Medications: Home Medications Medication Instructions Recorded Confirmed Last Taken Type Acetaminophen [Tylenol] 500 mg PO TID 07/04/19 07/04/19 Unknown History Albuterol Sulfate [Proair 90 mcg IH TID 07/04/19 07/04/19 Unknown History Digihaler] Amlodipine Besylate [Norvasc] 2.5 mg PO QDAY 07/04/19 07/04/19 Unknown History Aspirin [Aspirin BABY CHEW TAB] 81 mg PO QDAY 07/04/19 07/04/19 Unknown History Atorvastatin Calcium [Lipitor] 80 mg PO QDAY 07/04/19 07/04/19 Unknown History Benztropine Mesylate 0.5 mg PO QDAY 07/04/19 07/04/19 Unknown History Budesonide/Formoterol Fumarate 10.2 gm IH BID 07/04/19 07/04/19 Unknown History [Budesonide-Formoterol 160-4.5] Divalproex ER [DepaKOTE ER] 1,000 mg PO QDAY 07/04/19 07/04/19 Unknown History Docusate Sodium [Colace] 100 mg PO QDAY 07/04/19 07/04/19 Unknown History Folic Acid [Folvite] 1 mg PO QDAY 07/04/19 07/04/19 Unknown History Hydrophilic Ointment [Dermafix] 113 gm TP QDAY 07/04/19 07/04/19 Unknown History Losartan [Cozaar] 100 mg PO QDAY 07/04/19 07/04/19 Unknown History Metformin HCl [Metformin HCl ER] 500 mg PO QDAY 07/04/19 07/04/19 Unknown History Metoprolol Tartrate 25 mg PO BID 07/04/19 07/04/19 Unknown History Multivit with Minerals/Ginseng 1 each PO QDAY 07/04/19 07/04/19 Unknown History [Super Ginseng Multivit Cap] Quetiapine Fumarate [SEROquel Xr] 400 mg PO QHS 07/04/19 07/04/19 Unknown History Sertraline HCl [Zoloft] 100 mg PO QDAY 07/04/19 07/04/19 Unknown History Sildenafil Citrate [Viagra] 100 mg PO QDAY PRN 07/04/19 07/04/19 Unknown History Tamsulosin [Flomax] 0.4 mg PO QDAY 07/04/19 07/04/19 Unknown History Active Medications: Generic Name Dose Route Start Last Admin Trade Name Freq PRN Reason Stop Dose Admin Acetaminophen 650 mg 07/04/19 04:24 07/06/19 12:00 Tylenol PO 650 mg Q6H PRN Administration Pain MILD(1-3)/Fever >100.5/MURO Acetaminophen 650 mg 07/04/19 04:24 Tylenol PA Q6H PRN Pain MILD(1-3)/Fever >100.5/MURO Lipase/Protease/Amylase 1 each 07/04/19 10:04 Pancreaze 10,500 Unit FEEDTUBE PRN PRN For Clogged Feeding Tube Aspirin 81 mg 07/05/19 10:00 07/09/19 09:14 Baby Aspirin PO 81 mg QDAY TAMMIE Administration Dextrose 50 ml 07/04/19 06:54 D50w (25gm) Syringe IV Q30MIN PRN Hypoglycemia Protocol Famotidine 20 mg 07/04/19 10:00 07/09/19 09:14 Pepcid IV 20 mg BID TAMMIE Administration Folic Acid 1 mg 07/05/19 10:00 07/09/19 09:14 Folvite PO 1 mg QDAY TAMMIE Administration Hydrophilic Ointment 1 applic 07/03/19 19:56 07/05/19 17:42 Vaseline Lip Therapy TP 1 applic Q2HR PRN Administration Dry Lips Hydroxychloroquine Sulfate 200 mg 07/06/19 10:00 07/09/19 09:14 Plaquenil PO 07/09/19 23:59 200 mg BID TAMMIE Administration Norepinephrine 4 mg in 250 mls @ 7.5 mls/hr 07/03/19 23:00 07/07/19 10:15 Levophed Drip 4 Mg/Ns 250 Ml IV 0 mcg/min TITR TAMMIE 0 mls/hr Titration Protocol 2 MCG/MIN Ceftriaxone Sodium 1 gm in 50 mls @ 100 mls/hr 07/08/19 20:00 07/08/19 20:34 Rocephin/Ns 1 Gm/50 Ml IV 100 mls/hr Q24H TAMMIE Administration Protocol Insulin Human Lispro 0 unit 07/07/19 12:00 07/09/19 12:34 Humalog SUB-Q Not Given Q6HR [facility] Protocol Levetiracetam 750 mg 07/06/19 11:00 07/09/19 09:14 Keppra FEEDTUBE 750 mg Q12HR TAMMIE Administration Morphine Sulfate 2 mg 07/04/19 04:24 07/07/19 22:30 Morphine IV 2 mg Q4H PRN Administration Pain, Moderate (4-6) Multi-Ingred Cream/Lotion/Oil/Oint 1 applic 07/03/19 19:56 07/05/19 13:19 Artificial Tears Ophth Oint OU 1 applic Q4HR PRN Administration Dry Eye(s) Naloxone HCl 0.1 mg 07/04/19 04:24 Naloxone IV Q2MIN PRN Res Rate </= 8 or 02 SAT < 92% Simple Syrup 15 ml 07/04/19 10:04 07/05/19 17:42 Simple Syrup FEEDTUBE 15 ml PRN PRN Administration Hypoglycemia Simple Syrup 30 ml 07/04/19 10:04 Simple Syrup FEEDTUBE PRN PRN Hypoglycemia Sodium Bicarbonate 325 mg 07/04/19 10:04 Sodium Bicarbonate FEEDTUBE PRN PRN For Clogged Feeding Tube Sodium Bicarbonate 650 mg 07/05/19 14:00 07/09/19 09:14 Sodium Bicarbonate PO 650 mg TID TAMMIE Administration Sodium Chloride 10 ml 07/04/19 10:00 07/08/19 22:31 Sodium Chloride Flush Syringe 10 Ml IV 10 ml BID TAMMIE Administration Sodium Chloride 10 ml 07/04/19 04:24 Sodium Chloride Flush Syringe 10 Ml IV PRN PRN LINE FLUSH
--- NOTE | 2019-07-09 14:58 | Progress Note ---
Assessment and Plan COVid positive- Acute respiratory Failure with Hypoxia - Due to bilateral PNA with COVID 19 infection. -pulmonary critical care following -Continue scheduled labs, antibiotics, mechanical ventilation, supportive care as needed Bilateral PNA with severe sepsis - see above -ID following, started on Plaquenil -Also continue vancomycin and cefepime -Ordered for T-tube culture Acute metabolic encephalopathy -Likely due to respiratory arrest and severe sepsis - Hold Hyoscamine. monitor Troponins. -CT head unremarkable Shock, likely septic: Lactic acidosis -Levophed as needed, continue IV fluid COPD with exacerbation -Likely due to COVID-19 pneumonia -Continue IV antibiotics, Plaquenil, scheduled nebs Anemia, Microcytic - check iron, TIBC - monitor H&H, transfuse one unit Pressure Ulcers - buttocks, right lateral foot area - present upon admission - wound care consulted Hyponatremia, continue IV fluid DM type 2 - Accuchecks with sliding scale insulin HTN Essential, now hypotensive -relatively low BP - on IVF. monitor Seizure D/o/CVA/immobility/BIpolar D/o/SCZ chronic medical conditions - continue meds patient is DNR- Called and verified information Guarded prognosis, patient is critically ill 07/04: COVID +ve, start on plaquinil, called no answer 07/05: transfuse one unit PRBC, Hb dropped to ~6, called and updated 07/06; H&H stable, serum chemistry improved. On mechanical ventilation with high inflammatory markers. Continue Plaquenil and empiric antibiotics. ID following, prognosis remains guarded and extremely poor. 07/07: On mechanical ventilation with high inflammatory markers. Continue Plaquenil and empiric antibiotics. ID following, prognosis remains guarded and extremely poor. 07/08: Called today and verified the CODE STATUS. Patient remains DNR. He is still intubated, with poor prognosis. Continue to follow inflammatory markers. The high probability of a clinically significant, sudden or life threatening deterioration of the [respiratory, CVS, [employer]] system(s) required my full and direct attention, intervention and personal management. The aggregate critical care time was [32] minutes. This time is in addition to time spent performing reported procedures but includes the following: [x] Data Review and interpretation [x] Patient assessment and monitoring of vital signs [x] Documentation [x] Medication orders and management Subjective Date of service: 07/09/19 Principal diagnosis: Bilateral pneumonia, severe sepsis with septic shock, encephalopathy Interval history: Patient seen and examined. Medical records and medication list reviewed. No acute event overnight noted by the RN. Patient is positive for COVID-19. Patient remains intubated on mechanical ventilation Discussed plan of care at bedside with patient's RN. Objective - Exam Narrative Exam: General appearance: sedated on ventilator, intubated, other (emaciated) EENT: ATNC, other (pupils equal) Neck: Present: trachea midline Respiratory: Clear to Ascultation Heart: regular, S1S2, no murmurs Gastrointestinal: Present: normoactive bowel sounds, other (PEG tube noted). Absent: tenderness Integumentary: ulcer (both feet) Neurologic: other (not responding) Musculoskeletal: Present: other (trace ankle edema) - Constitutional Vitals: Vital Signs - 12hr 07/09/19 07/09/19 07/09/19 03:00 03:30 04:00 Temperature 98.8 F Pulse Rate 112 H 112 H 119 H Respiratory 25 H 25 H 26 H Rate Blood Pressure 120/69 122/73 139/82 O2 Sat by Pulse 96 96 98 Oximetry 07/09/19 07/09/19 07/09/19 04:30 05:00 05:30 Temperature Pulse Rate 115 H 110 H 108 H Respiratory 25 H 25 H 25 H Rate Blood Pressure 126/69 122/68 120/67 O2 Sat by Pulse 97 98 98 Oximetry 07/09/19 07/09/19 07/09/19 05:50 06:00 06:30 Temperature Pulse Rate 105 H 109 H 107 H Respiratory 25 H 25 H Rate Blood Pressure 124/70 131/78 138/78 O2 Sat by Pulse 99 99 100 Oximetry 07/09/19 07/09/19 08:17 11:47 Temperature Pulse Rate 109 H 109 H Respiratory Rate Blood Pressure 131/76 138/80 O2 Sat by Pulse 99 100 Oximetry - Labs CBC & Chem 7: 07/09/19 04:30 07/10/19 04:00 Labs: Abnormal lab results 07/08/19 07/08/19 07/08/19 Range/Units 16:15 18:22 23:35 WBC (4.5-11.0) K/mm3 RBC (3.65-5.03) M/mm3 Hgb (11.8-15.2) gm/dl Hct (35.5-45.6) % MCV (84-94) fl MCH (28-32) pg RDW (13.2-15.2) % Plt Count (140-440) K/mm3 Seg Neuts % (Manual) (40.0-70.0) % Lymphocytes % (Manual) (13.4-35.0) % Seg Neutrophils # Man (1.8-7.7) K/mm3 Lymphocytes # (Manual) (1.2-5.4) K/mm3 ABG pO2 (80.0-90.0) mm Hg ABG Hemoglobin (14.0-18.0) gm/dl Oxyhemoglobin (95.0-99.0) % Sodium 134 L (137-145) mmol/L Potassium 3.3 L (3.6-5.0) mmol/L Carbon Dioxide 21 L (22-30) mmol/L BUN 27 H (9-20) mg/dL Creatinine 0.6 L (0.8-1.5) mg/dL Glucose 146 H (75-100) mg/dL POC Glucose 134 H 133 H (70-105) 07/09/19 07/09/19 07/09/19 Range/Units 04:30 04:30 05:00 WBC 18.9 H (4.5-11.0) K/mm3 RBC 2.77 L (3.65-5.03) M/mm3 Hgb 7.4 L (11.8-15.2) gm/dl Hct 22.8 L (35.5-45.6) % MCV 82 L (84-94) fl MCH 27 L (28-32) pg RDW 20.9 H (13.2-15.2) % Plt Count 130 L (140-440) K/mm3 Seg Neuts % (Manual) 84.0 H (40.0-70.0) % Lymphocytes % (Manual) 0 L (13.4-35.0) % Seg Neutrophils # Man 15.9 H (1.8-7.7) K/mm3 Lymphocytes # (Manual) 0.0 L (1.2-5.4) K/mm3 ABG pO2 (80.0-90.0) mm Hg ABG Hemoglobin (14.0-18.0) gm/dl Oxyhemoglobin (95.0-99.0) % Sodium (137-145) mmol/L Potassium 3.1 L (3.6-5.0) mmol/L Carbon Dioxide (22-30) mmol/L BUN 26 H (9-20) mg/dL Creatinine 0.5 L (0.8-1.5) mg/dL Glucose 125 H (75-100) mg/dL POC Glucose 155 H (70-105) 07/09/19 07/09/19 Range/Units 05:55 12:22 WBC (4.5-11.0) K/mm3 RBC (3.65-5.03) M/mm3 Hgb (11.8-15.2) gm/dl Hct (35.5-45.6) % MCV (84-94) fl MCH (28-32) pg RDW (13.2-15.2) % Plt Count (140-440) K/mm3 Seg Neuts % (Manual) (40.0-70.0) % Lymphocytes % (Manual) (13.4-35.0) % Seg Neutrophils # Man (1.8-7.7) K/mm3 Lymphocytes # (Manual) (1.2-5.4) K/mm3 ABG pO2 62.8 L (80.0-90.0) mm Hg ABG Hemoglobin 6.1 L (14.0-18.0) gm/dl Oxyhemoglobin 93.9 L (95.0-99.0) % Sodium (137-145) mmol/L Potassium (3.6-5.0) mmol/L Carbon Dioxide (22-30) mmol/L BUN (9-20) mg/dL Creatinine (0.8-1.5) mg/dL Glucose (75-100) mg/dL POC Glucose 115 H (70-105)
[2019-07-09] MEDS ORDERED: POTASSIUM CHLORIDE 20 MEQ PACKET FEEDTUBE ONE (16:00)
[2019-07-09] MEDS: cefTRIAXone/NS 1 GM/50 ML 1 GM/50 ML BAG IV SCH (20:41)
[2019-07-10] MEDS: INSULIN LISPRO 100 UNIT/ML SUB-Q SCH ×2 (01:09→06:20)
[2019-07-10 05:13] LABS: BUN/Creatinine Ratio 65; Blood Urea Nitrogen 26 mg/dL (9-20); Hemolysis Index 0
[2019-07-10 05:23] LABS: C-Reactive Protein 15.1 mg/dL (0.00-1.30)
[2019-07-10 05:52] LABS: ABG Base Excess 2.1 mmol/L (-2.0-3.0); ABG HCO3 26.3 mmol/L (20.0-26.0); ABG Methemoglobin 0.4 % (0.0-1.5); ABG Oxygen Saturation 96.6 % (95.0-99.0); ABG PCO2 39.3 mm Hg; ABG PH 7.444 pH Units (7.350-7.450); ABG PO2 65.6 mm Hg (80.0-90.0)
--- NOTE | 2019-07-10 09:00 | Progress Note ---
Assessment and Plan 1. Hypoantremia: Suspect SIADH. Sodium level has improved. Sodium bicarbonate through the PEG tube. Monitor Sodium level. 2. FEN: Metabolic acidosis, improved, stop Sodium bicarbonate, monitor. Hypokalemia, replete K, monitor. Replete Mg. Monitor volume status and lytes. 3. Acute hypoxic respiratory failure: Currently intubated and on vent. Pulmonary following. 4. Severe Sepsis, POA. Followed by ID. 5. Severe COVID-19 pneumonia. 6. Shock: Off pressors. BP is better. 7. Microcytic anemia, POA: Monitor. 8. Diabetes mellitus. 9. COPD. 10. Encephalopathy, POA: Metabolic. - Subjective history: Patient was only seen from outside the glass door to prevent exposure to COVID- 19. Also the PPE is either not available or very limited. - General Appearance General appearance: intubated on ventilator HEENT: not examined Neck: not examined Respiratory: not examined Heart: not examined Gastrointestinal: not examined Integumentary: not examined Neurologic: not examined Ext: not examined Subjective Date of service: 07/10/19 Principal diagnosis: Bilateral pneumonia, severe sepsis with septic shock, encephalopathy Objective - Vital Signs Vital signs: Vital Signs - 12hr 07/09/19 07/09/19 07/09/19 21:14 21:30 22:00 Temperature Pulse Rate 119 H 117 H 118 H Respiratory 25 H 25 H Rate Blood Pressure 139/65 144/75 144/72 O2 Sat by Pulse 99 99 98 Oximetry 07/09/19 07/09/19 07/09/19 22:11 22:20 22:30 Temperature Pulse Rate 118 H 117 H 117 H Respiratory 25 H 25 H Rate Blood Pressure 145/73 O2 Sat by Pulse 99 99 Oximetry 07/09/19 07/09/19 07/09/19 23:00 23:20 23:30 Temperature Pulse Rate 112 H 115 H Respiratory 25 H 25 H 25 H Rate Blood Pressure 145/73 134/70 O2 Sat by Pulse 99 99 100 Oximetry 07/09/19 07/10/19 07/10/19 23:32 00:00 00:30 Temperature 98.8 F Pulse Rate 114 H 112 H 113 H Respiratory 25 H 25 H 25 H Rate Blood Pressure 134/70 132/70 141/75 O2 Sat by Pulse 99 99 100 Oximetry 07/10/19 07/10/19 07/10/19 00:49 01:00 01:30 Temperature Pulse Rate 117 H 115 H 115 H Respiratory 25 H 27 H Rate Blood Pressure 141/77 141/77 130/70 O2 Sat by Pulse 98 99 99 Oximetry 07/10/19 07/10/19 07/10/19 02:00 02:30 03:00 Temperature Pulse Rate 116 H 115 H 126 H Respiratory 25 H 25 H 30 H Rate Blood Pressure 133/74 138/72 143/71 O2 Sat by Pulse 99 98 98 Oximetry 07/10/19 07/10/19 07/10/19 03:30 03:41 04:00 Temperature 97.4 F L Pulse Rate 124 H 125 H Respiratory 28 H 29 H Rate Blood Pressure 155/89 144/86 O2 Sat by Pulse 97 97 Oximetry 07/10/19 07/10/19 07/10/19 04:30 05:00 05:30 Temperature Pulse Rate 121 H 120 H 120 H Respiratory 28 H 26 H 28 H Rate Blood Pressure 142/82 141/77 153/84 O2 Sat by Pulse 98 98 99 Oximetry 07/10/19 07/10/19 07/10/19 05:34 06:00 06:30 Temperature Pulse Rate 119 H 120 H 120 H Respiratory 27 H 25 H Rate Blood Pressure 153/84 150/82 148/89 O2 Sat by Pulse 100 100 100 Oximetry 07/10/19 07/10/19 07/10/19 07:00 07:45 08:10 Temperature 98.0 F Pulse Rate 119 H 118 H Respiratory 25 H Rate Blood Pressure 145/84 133/72 O2 Sat by Pulse 100 100 Oximetry - Lab 07/09/19 04:30 07/10/19 04:00 Most recent lab results ABG pH 7.444 pH Units (7.350-7.450) 07/10/19 04:07 ABG pCO2 39.3 mm Hg 07/10/19 04:07 ABG pO2 65.6 mm Hg (80.0-90.0) L 07/10/19 04:07 ABG HCO3 26.3 mmol/L (20.0-26.0) H 07/10/19 04:07 ABG O2 Saturation 96.6 % (95.0-99.0) 07/10/19 04:07 Calcium 9.0 mg/dL (8.4-10.2) 07/10/19 04:00 Phosphorus 3.60 mg/dL (2.5-4.5) 07/05/19 04:00 Magnesium 1.50 mg/dL (1.7-2.3) L 07/10/19 04:00 Medications & Allergies - Medications Allergies/Adverse Reactions: Allergies No Known Allergies Allergy (Unverified 09/09/16 16:29) Home Medications: Home Medications Medication Instructions Recorded Confirmed Last Taken Type Acetaminophen [Tylenol] 500 mg PO TID 07/04/19 07/04/19 Unknown History Albuterol Sulfate [Proair 90 mcg IH TID 07/04/19 07/04/19 Unknown History Digihaler] Amlodipine Besylate [Norvasc] 2.5 mg PO QDAY 07/04/19 07/04/19 Unknown History Aspirin [Aspirin BABY CHEW TAB] 81 mg PO QDAY 07/04/19 07/04/19 Unknown History Atorvastatin Calcium [Lipitor] 80 mg PO QDAY 07/04/19 07/04/19 Unknown History Benztropine Mesylate 0.5 mg PO QDAY 07/04/19 07/04/19 Unknown History Budesonide/Formoterol Fumarate 10.2 gm IH BID 07/04/19 07/04/19 Unknown History [Budesonide-Formoterol 160-4.5] Divalproex ER [DepaKOTE ER] 1,000 mg PO QDAY 07/04/19 07/04/19 Unknown History Docusate Sodium [Colace] 100 mg PO QDAY 07/04/19 07/04/19 Unknown History Folic Acid [Folvite] 1 mg PO QDAY 07/04/19 07/04/19 Unknown History Hydrophilic Ointment [Dermafix] 113 gm TP QDAY 07/04/19 07/04/19 Unknown History Losartan [Cozaar] 100 mg PO QDAY 07/04/19 07/04/19 Unknown History Metformin HCl [Metformin HCl ER] 500 mg PO QDAY 07/04/19 07/04/19 Unknown History Metoprolol Tartrate 25 mg PO BID 07/04/19 07/04/19 Unknown History Multivit with Minerals/Ginseng 1 each PO QDAY 07/04/19 07/04/19 Unknown History [Super Ginseng Multivit Cap] Quetiapine Fumarate [SEROquel Xr] 400 mg PO QHS 07/04/19 07/04/19 Unknown History Sertraline HCl [Zoloft] 100 mg PO QDAY 07/04/19 07/04/19 Unknown History Sildenafil Citrate [Viagra] 100 mg PO QDAY PRN 07/04/19 07/04/19 Unknown History Tamsulosin [Flomax] 0.4 mg PO QDAY 07/04/19 07/04/19 Unknown History Active Medications: Generic Name Dose Route Start Last Admin Trade Name Freq PRN Reason Stop Dose Admin Acetaminophen 650 mg 07/04/19 04:24 Tylenol CO Q6H PRN Pain MILD(1-3)/Fever >100.5/MURO Acetaminophen 650 mg 07/10/19 04:00 Tylenol PO Q6HR PRN Pain, Mild (1-3) FEVER Lipase/Protease/Amylase 1 each 07/04/19 10:[address] 10,500 Unit FEEDTUBE PRN PRN For Clogged Feeding Tube Aspirin 81 mg 07/05/19 10:00 07/09/19 09:14 Baby Aspirin PO 81 mg QDAY TAMMIE Administration Dextrose 50 ml 07/04/19 06:54 D50w (25gm) Syringe IV Q30MIN PRN Hypoglycemia Protocol Docusate Sodium 100 mg 07/10/19 10:00 Colace PO BID TAMMIE Famotidine 20 mg 07/10/19 10:00 Pepcid PO BID TAMMIE Folic Acid 1 mg 07/05/19 10:00 07/09/19 09:14 Folvite PO 1 mg QDAY TAMMIE Administration Hydrophilic Ointment 1 applic 07/03/19 19:56 07/05/19 17:42 Vaseline Lip Therapy TP 1 applic Q2HR PRN Administration Dry Lips Norepinephrine 4 mg in 250 mls @ 7.5 mls/hr 07/03/19 23:00 07/07/19 10:15 Levophed Drip 4 Mg/Ns 250 Ml IV 0 mcg/min TITR TAMMIE 0 mls/hr Titration Protocol 2 MCG/MIN Ceftriaxone Sodium 1 gm in 50 mls @ 100 mls/hr 07/08/19 20:00 07/09/19 20:41 Rocephin/Ns 1 Gm/50 Ml IV 07/14/19 20:29 100 mls/hr Q24H TAMMIE Administration Protocol Insulin Human Lispro 0 unit 07/07/19 12:00 07/10/19 06:20 Humalog SUB-Q Not Given Q6HR [facility] Protocol Levetiracetam 750 mg 07/06/19 11:00 07/09/19 22:04 Keppra FEEDTUBE Not Given Q12HR [facility] Morphine Sulfate 2 mg 07/04/19 04:24 07/07/19 22:30 Morphine IV 2 mg Q4H PRN Administration Pain, Moderate (4-6) Multi-Ingred Cream/Lotion/Oil/Oint 1 applic 07/03/19 19:56 07/05/19 13:19 Artificial Tears Ophth Oint OU 1 applic Q4HR PRN Administration Dry Eye(s) Naloxone HCl 0.1 mg 07/04/19 04:24 Naloxone IV Q2MIN PRN Res Rate </= 8 or 02 SAT < 92% Simple Syrup 15 ml 07/04/19 10:04 07/05/19 17:42 Simple Syrup FEEDTUBE 15 ml PRN PRN Administration Hypoglycemia Simple Syrup 30 ml 07/04/19 10:04 Simple Syrup FEEDTUBE PRN PRN Hypoglycemia Sodium Bicarbonate 325 mg 07/04/19 10:04 Sodium Bicarbonate FEEDTUBE PRN PRN For Clogged Feeding Tube Sodium Bicarbonate 650 mg 07/05/19 14:00 07/09/19 20:42 Sodium Bicarbonate PO 650 mg TID TAMMIE Administration Sodium Chloride 10 ml 07/04/19 10:00 07/09/19 22:04 Sodium Chloride Flush Syringe 10 Ml IV Not Given BID TAMMIE Sodium Chloride 10 ml 07/04/19 04:24 Sodium Chloride Flush Syringe 10 Ml IV PRN PRN LINE FLUSH
[2019-07-10] MEDS: FAMOTIDINE 20 MG TAB PO SCH ×2 (09:08→21:35)
[2019-07-10] MEDS: SODIUM BICARBONATE 650 MG TAB PO SCH (09:08)
[2019-07-10] MEDS: levETIRAcetam 500 MG/5 ML ORAL LIQD FEEDTUBE SCH ×2 (09:08→21:35)
[2019-07-10] MEDS: FOLIC ACID 1 MG TAB PO SCH (09:08)
[2019-07-10] MEDS: ASPIRIN 81 MG TAB CHEW PO SCH (09:09)
--- NOTE | 2019-07-10 09:55 | Progress Note ---
Assessment and Plan S/p Cardiopulmonary arrest with ROSC Severe Sepsis with septic shock. Acute hypoxemic respiratory failure on MVS COVID-19 positive with elevated markers Bilateral pneumonia Elevated LFTs. Oropharyngeal dysphagia s/p PEG Acute kidney injury Decubitus ulcers-unstageable Moderate protein calorie malnutriton [id number] metabolic acidosis Leukocytosis -improving Thrombocytopenia Microcytic anemia -Secretion management, start Scopolamine -Trend platelets, has had a gradual decline -Completed Plaquenil therapy -Has a femoral triple lumen catheter, discontinue -Trend platelet count and monitor for bleeding -Bowel regimen - continue airborne, droplet and contact isolation for COVID-19 - continue wound care per WCT - sedation prn for target RASS 0 to -1 - continue to wean supplemental oxygen for target O2 sat's > 90% - Daily SAT's and SBT assessment as tolerated - VAP bundle addressed - continue lung protective strategies - continue bronchodilators with pulmonary hygiene per RT - wean per pulmonary driven protocols otherwise - accuchecks with glycemic control per SSI (While critically ill target blood glucose of 140-180 mg/dL; avoid hypoglycemia) - continue to avoid benzodiazepines, reduce the possibility of delirium - prn analgesia per CPOT score - Maintenance of sleep-wake cycle, avoid delirium - continue enteral nutritional support at goal rate as tolerated - VTE prophylaxis-SCDs -Stress ulcer prophylaxis- Famotidine - PT/OT/ROM exercises - continue mobility protocol, off loading and skin assessment for pressure ulcer prevention - Monitor hemodynamics closely -Wright catheter in this critically ill patient with unstageable sacral decubitus ulcer -PEG site care - continue other care per attending / other consultants - discharge planning ongoing concurrently .... Re-evaluate in am & prn CONDITION: CRITICAL PROGNOSIS: GUARDED CODE STATUS: DNAR Called his family to discuss goals of care, unable to make contact with them He was apparently in hospice prior to this admission The high probability of a clinically significant, sudden or life-threatening deterioration of the [respiratory & cardiovascular] system(s) required my full and direct attention, intervention and personal management. The aggregate critical care time was [35] minutes without overlap. Time includes spent on; [x] Data Review and interpretation [x] Patient assessment and monitoring of vital signs [x] Documentation [x] Medication orders and management Subjective Date of service: 07/10/19 Principal diagnosis: Bilateral pneumonia, severe sepsis with septic shock, encephalopathy Interval history: The patient is a 69-year-old male with CVA, hypertension, dementia, schizophrenia, alcohol use disorder was admitted to the emergency room after being brought in by EMS with progressive shortness of breath and unresponsiveness. He was noted to have agonal breathing and a faint pulse requiring CPR. Patient was intubated and brought to the hospital. It seems, patient was on home hospice. Currently, remains critically ill, intubated, on mechanical ventilation. His COVID test resulted positive. Patient is seen today for: s/p cardiopulmonary arrest with ROSC;Ac hypoxemic Resp failure on MVS; Severe sepsis with Shock; Bilateral Pneumonia; POSITIVE coronavirus-19 infection. Seen and examined at bedside; 24hour events reviewed; nursing and respiratory ca re staff consulted; no adverse overnight events reported to me; resting in bed. No reported fevers. On MVS and tolerating it well Copious oral and ETT secretions Current setting AC-VC 25/500/60%/PEEP 6 ABG 7.44/39/66/26.3 Objective Vital Signs - 12hr 07/09/19 07/09/19 07/09/19 22:00 22:11 22:20 Temperature Pulse Rate 118 H 118 H 117 H Respiratory 25 H 25 H Rate Blood Pressure 144/72 O2 Sat by Pulse 98 99 Oximetry 07/09/19 07/09/19 07/09/19 22:30 23:00 23:20 Temperature Pulse Rate 117 H 112 H Respiratory 25 H 25 H 25 H Rate Blood Pressure 145/73 145/73 O2 Sat by Pulse 99 99 99 Oximetry 07/09/19 07/09/19 07/10/19 23:30 23:32 00:00 Temperature 98.8 F Pulse Rate 115 H 114 H 112 H Respiratory 25 H 25 H 25 H Rate Blood Pressure 134/70 134/70 132/70 O2 Sat by Pulse 100 99 99 Oximetry 07/10/19 07/10/19 07/10/19 00:30 00:49 01:00 Temperature Pulse Rate 113 H 117 H 115 H Respiratory 25 H 25 H Rate Blood Pressure 141/75 141/77 141/77 O2 Sat by Pulse 100 98 99 Oximetry 07/10/19 07/10/19 07/10/19 01:30 02:00 02:30 Temperature Pulse Rate 115 H 116 H 115 H Respiratory 27 H 25 H 25 H Rate Blood Pressure 130/70 133/74 138/72 O2 Sat by Pulse 99 99 98 Oximetry 07/10/19 07/10/19 07/10/19 03:00 03:30 03:41 Temperature 97.4 F L Pulse Rate 126 H 124 H Respiratory 30 H 28 H Rate Blood Pressure 143/71 155/89 O2 Sat by Pulse 98 97 Oximetry 07/10/19 07/10/19 07/10/19 04:00 04:30 05:00 Temperature Pulse Rate 125 H 121 H 120 H Respiratory 29 H 28 H 26 H Rate Blood Pressure 144/86 142/82 141/77 O2 Sat by Pulse 97 98 98 Oximetry 07/10/19 07/10/19 07/10/19 05:30 05:34 06:00 Temperature Pulse Rate 120 H 119 H 120 H Respiratory 28 H 27 H Rate Blood Pressure 153/84 153/84 150/82 O2 Sat by Pulse 99 100 100 Oximetry 07/10/19 07/10/19 07/10/19 06:30 07:00 07:45 Temperature Pulse Rate 120 H 119 H 118 H Respiratory 25 H 25 H Rate Blood Pressure 148/89 145/84 133/72 O2 Sat by Pulse 100 100 100 Oximetry 07/10/19 08:10 Temperature 98.0 F Pulse Rate Respiratory Rate Blood Pressure O2 Sat by Pulse Oximetry Constitutional: appears uncomfortable, other (eelderly and chronically ill looking AAM, normocephalic with mildly increased respiratory effort at rest) Eyes: non-icteric ENT: oropharynx moist, other (ETT 24 cm RUTH) Neck: supple, no lymphadenopathy, no JVD Effort: mildly labored Ascultation: Bilateral: diminished breath sounds, rhonchi Percussion: Bilateral: not dull Cardiovascular: regular rate and rhythm Gastrointestinal: normoactive bowel sounds, soft, non-tender, non-distended, other (+ PEG tube with mild TF leakage) Integumentary: decubitus ulcer Extremities: no cyanosis, no edema, pink and warm, pulses normal, other (contracted lower extremities) Neurologic: unable to assess (appears more awake this morning, tracking voice) Psychiatric: other (Unable to assess re: AMS) CBC and BMP: 07/09/19 04:30 07/10/19 04:00 ABG, PT/INR, D-dimer: ABG ABG pH 7.444 pH Units (7.350-7.450) 07/10/19 04:07 ABG pCO2 39.3 mm Hg 07/10/19 04:07 ABG pO2 65.6 mm Hg (80.0-90.0) L 07/10/19 04:07 ABG O2 Saturation 96.6 % (95.0-99.0) 07/10/19 04:07 PT/INR, D-dimer PT 16.0 Sec. (12.2-14.9) H 07/03/19 22:20 INR 1.26 (0.87-1.13) H 07/03/19 22:20 D-Dimer 1142.18 ng/mlDDU (0-234) H 07/08/19 00:45 Abnormal lab findings: Abnormal Labs 07/03/19 07/03/19 07/03/19 19:57 21:10 21:13 WBC RBC Hgb Hct MCV MCH RDW Plt Count Seg Neuts % (Manual) Lymphocytes % (Manual) Seg Neutrophils # Man Lymphocytes # (Manual) PT INR D-Dimer ABG pH 7.238 L ABG pO2 210.8 H ABG HCO3 15.4 L ABG O2 Saturation 99.2 H ABG Base Excess -11.1 L ABG Hemoglobin 8.0 L Oxyhemoglobin Sodium 124 L Potassium Chloride 92.9 L Carbon Dioxide 10 L BUN 23 H Creatinine 0.5 L Glucose 118 H POC Glucose Lactic Acid Calcium 7.0 L Magnesium Iron TIBC Ferritin AST 70 H ALT 88 H Lactate Dehydrogenase Troponin T 0.032 H C-Reactive Protein Total Protein 5.0 L Albumin 1.8 L Cholesterol 47 L LDL Cholesterol Direct 25 L HDL Cholesterol 20 L Urine WBC (Auto) 12.0 H Vancomycin Trough Coronavirus (PCR) Crossmatch 07/03/19 07/03/19 07/03/19 22:20 22:20 22:20 WBC 30.5 H RBC 2.96 L Hgb 7.7 L Hct 23.9 L MCV 81 L MCH 26 L RDW 18.6 H Plt Count 459 H Seg Neuts % (Manual) 93.0 H Lymphocytes % (Manual) 0.5 L Seg Neutrophils # Man 28.4 H Lymphocytes # (Manual) 0.2 L PT 16.0 H INR 1.26 H D-Dimer ABG pH ABG pO2 ABG HCO3 ABG O2 Saturation ABG Base Excess ABG Hemoglobin Oxyhemoglobin Sodium Potassium Chloride Carbon Dioxide BUN Creatinine Glucose POC Glucose Lactic Acid 6.90 H* Calcium Magnesium Iron TIBC Ferritin AST ALT Lactate Dehydrogenase Troponin T C-Reactive Protein Total Protein Albumin Cholesterol LDL Cholesterol Direct HDL Cholesterol Urine WBC (Auto) Vancomycin Trough Coronavirus (PCR) Crossmatch 07/03/19 07/04/19 07/04/19 23:58 05:15 07:05 WBC 17.1 H RBC 3.22 L Hgb 8.3 L Hct 25.4 L MCV 79 L MCH 26 L RDW 18.6 H Plt Count Seg Neuts % (Manual) 74.0 H Lymphocytes % (Manual) 0 L Seg Neutrophils # Man 12.7 H Lymphocytes # (Manual) 0.0 L PT INR D-Dimer ABG pH 7.310 L ABG pO2 73.2 L ABG HCO3 17.8 L ABG O2 Saturation 93.8 L ABG Base Excess -7.7 L ABG Hemoglobin 9.6 L Oxyhemoglobin 92.3 L Sodium Potassium Chloride Carbon Dioxide BUN Creatinine Glucose POC Glucose Lactic Acid 7.10 H* Calcium Magnesium Iron TIBC Ferritin AST ALT Lactate Dehydrogenase Troponin T C-Reactive Protein Total Protein Albumin Cholesterol LDL Cholesterol Direct HDL Cholesterol Urine WBC (Auto) Vancomycin Trough Coronavirus (PCR) Crossmatch 07/04/19 07/04/19 07/04/19 07:05 07:05 07:05 WBC RBC Hgb Hct MCV MCH RDW Plt Count Seg Neuts % (Manual) Lymphocytes % (Manual) Seg Neutrophils # Man Lymphocytes # (Manual) PT INR D-Dimer ABG pH ABG pO2 ABG HCO3 ABG O2 Saturation ABG Base Excess ABG Hemoglobin Oxyhemoglobin Sodium 120 L Potassium 5.1 H Chloride 90.0 L Carbon Dioxide 14 L BUN 26 H Creatinine 0.5 L Glucose POC Glucose Lactic Acid 3.30 H* Calcium 8.0 L Magnesium Iron 9 L TIBC 97 L Ferritin AST 73 H ALT 91 H Lactate Dehydrogenase Troponin T C-Reactive Protein Total Protein 5.5 L Albumin 2.0 L Cholesterol LDL Cholesterol Direct HDL Cholesterol Urine WBC (Auto) Vancomycin Trough Coronavirus (PCR) Crossmatch 07/04/19 07/04/19 07/04/19 09:39 09:39 09:39 WBC RBC Hgb Hct MCV MCH RDW Plt Count Seg Neuts % (Manual) Lymphocytes % (Manual) Seg Neutrophils # Man Lymphocytes # (Manual) PT INR D-Dimer 1419.14 H ABG pH ABG pO2 ABG HCO3 ABG O2 Saturation ABG Base Excess ABG Hemoglobin Oxyhemoglobin Sodium Potassium Chloride Carbon Dioxide BUN Creatinine Glucose POC Glucose Lactic Acid Calcium Magnesium Iron TIBC Ferritin 1719.0 H AST ALT Lactate Dehydrogenase 234 H Troponin T C-Reactive Protein 15.50 H Total Protein Albumin Cholesterol LDL Cholesterol Direct HDL Cholesterol Urine WBC (Auto) Vancomycin Trough Coronavirus (PCR) Crossmatch 07/04/19 07/04/19 07/04/19 10:09 18:08 18:28 WBC RBC Hgb Hct MCV MCH RDW Plt Count Seg Neuts % (Manual) Lymphocytes % (Manual) Seg Neutrophils # Man Lymphocytes # (Manual) PT INR D-Dimer ABG pH ABG pO2 ABG HCO3 ABG O2 Saturation ABG Base Excess ABG Hemoglobin Oxyhemoglobin Sodium 117 L* Potassium 5.6 H Chloride 90.3 L Carbon Dioxide 16 L BUN 28 H Creatinine 0.5 L Glucose 58 L POC Glucose 65 L Lactic Acid Calcium 8.2 L Magnesium Iron TIBC Ferritin AST ALT Lactate Dehydrogenase Troponin T C-Reactive Protein Total Protein Albumin Cholesterol LDL Cholesterol Direct HDL Cholesterol Urine WBC (Auto) Vancomycin Trough Coronavirus (PCR) Positive A Crossmatch 07/04/19 07/04/19 07/04/19 23:45 Unknown Unknown WBC RBC Hgb Hct MCV MCH RDW Plt Count Seg Neuts % (Manual) Lymphocytes % (Manual) Seg Neutrophils # Man Lymphocytes # (Manual) PT INR D-Dimer 759.77 H ABG pH ABG pO2 ABG HCO3 ABG O2 Saturation ABG Base Excess ABG Hemoglobin Oxyhemoglobin Sodium 122 L Potassium Chloride 93.0 L Carbon Dioxide 19 L BUN 27 H Creatinine 0.5 L Glucose POC Glucose Lactic Acid Calcium 8.3 L Magnesium Iron TIBC Ferritin 1301.0 H AST ALT Lactate Dehydrogenase Troponin T C-Reactive Protein Total Protein Albumin Cholesterol LDL Cholesterol Direct HDL Cholesterol Urine WBC (Auto) Vancomycin Trough Coronavirus (PCR) Crossmatch 07/04/19 07/05/19 07/05/19 Unknown 03:20 04:00 WBC RBC Hgb Hct MCV MCH RDW Plt Count Seg Neuts % (Manual) Lymphocytes % (Manual) Seg Neutrophils # Man Lymphocytes # (Manual) PT INR D-Dimer ABG pH ABG pO2 60.6 L ABG HCO3 ABG O2 Saturation 93.5 L ABG Base Excess -2.4 L ABG Hemoglobin 6.9 L Oxyhemoglobin 92.0 L Sodium 125 L Potassium Chloride 92.6 L Carbon Dioxide 19 L BUN 24 H Creatinine 0.6 L Glucose POC Glucose Lactic Acid Calcium 8.2 L Magnesium 1.40 L Iron TIBC Ferritin AST ALT Lactate Dehydrogenase 242 H Troponin T C-Reactive Protein 16.70 H Total Protein Albumin Cholesterol LDL Cholesterol Direct HDL Cholesterol Urine WBC (Auto) Vancomycin Trough Coronavirus (PCR) Crossmatch 07/05/19 07/05/19 07/05/19 10:11 16:15 17:54 WBC 46.4 H* RBC 2.77 L Hgb 7.2 L Hct 21.9 L MCV 79 L MCH 26 L RDW 19.0 H Plt Count Seg Neuts % (Manual) 82.0 H Lymphocytes % (Manual) 1.0 L Seg Neutrophils # Man 38.0 H Lymphocytes # (Manual) 0.5 L PT INR D-Dimer ABG pH ABG pO2 ABG HCO3 ABG O2 Saturation ABG Base Excess ABG Hemoglobin Oxyhemoglobin Sodium Potassium Chloride Carbon Dioxide BUN Creatinine Glucose POC Glucose 69 L Lactic Acid Calcium Magnesium Iron TIBC Ferritin AST ALT Lactate Dehydrogenase Troponin T C-Reactive Protein Total Protein Albumin Cholesterol LDL Cholesterol Direct HDL Cholesterol Urine WBC (Auto) Vancomycin Trough 23.2 H Coronavirus (PCR) Crossmatch 07/05/19 07/06/19 07/06/19 19:58 00:27 00:27 WBC RBC Hgb Hct MCV MCH RDW Plt Count Seg Neuts % (Manual) Lymphocytes % (Manual) Seg Neutrophils # Man Lymphocytes # (Manual) PT INR D-Dimer 1333.22 H ABG pH ABG pO2 ABG HCO3 ABG O2 Saturation ABG Base Excess ABG Hemoglobin Oxyhemoglobin Sodium 127 L Potassium Chloride Carbon Dioxide BUN Creatinine Glucose POC Glucose Lactic Acid Calcium Magnesium Iron TIBC Ferritin 977.1 H AST ALT Lactate Dehydrogenase Troponin T C-Reactive Protein Total Protein Albumin Cholesterol LDL Cholesterol Direct HDL Cholesterol Urine WBC (Auto) Vancomycin Trough Coronavirus (PCR) Crossmatch 07/06/19 07/06/19 07/06/19 00:27 02:00 02:56 WBC RBC Hgb Hct MCV MCH RDW Plt Count Seg Neuts % (Manual) Lymphocytes % (Manual) Seg Neutrophils # Man Lymphocytes # (Manual) PT INR D-Dimer ABG pH ABG pO2 70.3 L ABG HCO3 ABG O2 Saturation 94.8 L ABG Base Excess ABG Hemoglobin 8.0 L Oxyhemoglobin 93.2 L Sodium Potassium Chloride Carbon Dioxide BUN Creatinine Glucose POC Glucose 117 H Lactic Acid Calcium Magnesium Iron TIBC Ferritin AST ALT Lactate Dehydrogenase 236 H Troponin T C-Reactive Protein 22.90 H Total Protein Albumin Cholesterol LDL Cholesterol Direct HDL Cholesterol Urine WBC (Auto) Vancomycin Trough Coronavirus (PCR) Crossmatch 07/06/19 07/06/19 07/06/19 03:49 03:49 07:40 WBC 38.8 H RBC 2.51 L Hgb 6.7 L Hct 19.9 L* MCV 79 L MCH 27 L RDW 19.2 H Plt Count Seg Neuts % (Manual) 90.5 H Lymphocytes % (Manual) 1.0 L Seg Neutrophils # Man 35.1 H Lymphocytes # (Manual) 0.4 L PT INR D-Dimer ABG pH ABG pO2 ABG HCO3 ABG O2 Saturation ABG Base Excess ABG Hemoglobin Oxyhemoglobin Sodium 131 L Potassium Chloride 96.9 L Carbon Dioxide 18 L BUN 23 H Creatinine 0.5 L Glucose POC Glucose Lactic Acid Calcium 8.0 L Magnesium Iron TIBC Ferritin AST ALT Lactate Dehydrogenase Troponin T C-Reactive Protein Total Protein Albumin Cholesterol LDL Cholesterol Direct HDL Cholesterol Urine WBC (Auto) Vancomycin Trough Coronavirus (PCR) Crossmatch See Detail 07/06/19 07/06/19 07/06/19 12:38 14:39 20:00 WBC RBC Hgb Hct MCV MCH RDW Plt Count Seg Neuts % (Manual) Lymphocytes % (Manual) Seg Neutrophils # Man Lymphocytes # (Manual) PT INR D-Dimer ABG pH ABG pO2 ABG HCO3 ABG O2 Saturation ABG Base Excess ABG Hemoglobin Oxyhemoglobin Sodium Potassium Chloride Carbon Dioxide BUN Creatinine Glucose POC Glucose 112 H 111 H 140 H Lactic Acid Calcium Magnesium Iron TIBC Ferritin AST ALT Lactate Dehydrogenase Troponin T C-Reactive Protein Total Protein Albumin Cholesterol LDL Cholesterol Direct HDL Cholesterol Urine WBC (Auto) Vancomycin Trough Coronavirus (PCR) Crossmatch 07/06/19 07/06/19 07/07/19 22:43 22:56 02:20 WBC RBC Hgb 7.9 L Hct 23.1 L MCV MCH RDW Plt Count Seg Neuts % (Manual) Lymphocytes % (Manual) Seg Neutrophils # Man Lymphocytes # (Manual) PT INR D-Dimer ABG pH ABG pO2 ABG HCO3 ABG O2 Saturation ABG Base Excess ABG Hemoglobin Oxyhemoglobin Sodium Potassium Chloride Carbon Dioxide BUN Creatinine Glucose POC Glucose 122 H 149 H Lactic Acid Calcium Magnesium Iron TIBC Ferritin AST ALT Lactate Dehydrogenase Troponin T C-Reactive Protein Total Protein Albumin Cholesterol LDL Cholesterol Direct HDL Cholesterol Urine WBC (Auto) Vancomycin Trough Coronavirus (PCR) Crossmatch 07/07/19 07/07/19 07/07/19 04:35 05:27 05:34 WBC 23.1 H RBC 3.00 L Hgb 8.1 L Hct 24.2 L MCV 81 L MCH 27 L RDW 20.6 H Plt Count Seg Neuts % (Manual) 90.0 H Lymphocytes % (Manual) 2.0 L Seg Neutrophils # Man 20.8 H Lymphocytes # (Manual) 0.5 L PT INR D-Dimer ABG pH ABG pO2 65.8 L ABG HCO3 ABG O2 Saturation 92.2 L ABG Base Excess ABG Hemoglobin 8.3 L Oxyhemoglobin 90.6 L Sodium Potassium Chloride Carbon Dioxide BUN Creatinine Glucose POC Glucose 132 H Lactic Acid Calcium Magnesium Iron TIBC Ferritin AST ALT Lactate Dehydrogenase Troponin T C-Reactive Protein Total Protein Albumin Cholesterol LDL Cholesterol Direct HDL Cholesterol Urine WBC (Auto) Vancomycin Trough Coronavirus (PCR) Crossmatch 07/07/19 07/07/19 07/07/19 05:34 11:50 15:58 WBC RBC Hgb 8.1 L Hct 24.2 L MCV MCH RDW Plt Count Seg Neuts % (Manual) Lymphocytes % (Manual) Seg Neutrophils # Man Lymphocytes # (Manual) PT INR D-Dimer ABG pH ABG pO2 ABG HCO3 ABG O2 Saturation ABG Base Excess ABG Hemoglobin Oxyhemoglobin Sodium 135 L Potassium 3.3 L Chloride Carbon Dioxide 20 L BUN 27 H Creatinine 0.6 L Glucose 121 H POC Glucose 123 H Lactic Acid Calcium 8.0 L Magnesium Iron TIBC Ferritin AST ALT Lactate Dehydrogenase Troponin T C-Reactive Protein Total Protein Albumin Cholesterol LDL Cholesterol Direct HDL Cholesterol Urine WBC (Auto) Vancomycin Trough Coronavirus (PCR) Crossmatch 07/07/19 07/07/19 07/07/19 17:42 22:00 23:53 WBC RBC Hgb 8.0 L Hct 23.4 L MCV MCH RDW Plt Count Seg Neuts % (Manual) Lymphocytes % (Manual) Seg Neutrophils # Man Lymphocytes # (Manual) PT INR D-Dimer ABG pH ABG pO2 ABG HCO3 ABG O2 Saturation ABG Base Excess ABG Hemoglobin Oxyhemoglobin Sodium Potassium Chloride Carbon Dioxide BUN Creatinine Glucose POC Glucose 107 H 117 H Lactic Acid Calcium Magnesium Iron TIBC Ferritin AST ALT Lactate Dehydrogenase Troponin T C-Reactive Protein Total Protein Albumin Cholesterol LDL Cholesterol Direct HDL Cholesterol Urine WBC (Auto) Vancomycin Trough Coronavirus (PCR) Crossmatch 07/08/19 07/08/19 07/08/19 00:45 00:45 00:45 WBC RBC Hgb Hct MCV MCH RDW Plt Count Seg Neuts % (Manual) Lymphocytes % (Manual) Seg Neutrophils # Man Lymphocytes # (Manual) PT INR D-Dimer 1142.18 H ABG pH ABG pO2 ABG HCO3 ABG O2 Saturation ABG Base Excess ABG Hemoglobin Oxyhemoglobin Sodium Potassium Chloride Carbon Dioxide BUN Creatinine Glucose POC Glucose Lactic Acid Calcium Magnesium Iron TIBC Ferritin 839.0 H AST ALT Lactate Dehydrogenase 253 H Troponin T C-Reactive Protein 18.90 H Total Protein Albumin Cholesterol LDL Cholesterol Direct HDL Cholesterol Urine WBC (Auto) Vancomycin Trough Coronavirus (PCR) Crossmatch 07/08/19 07/08/19 07/08/19 04:30 05:11 12:02 WBC RBC Hgb Hct MCV MCH RDW Plt Count Seg Neuts % (Manual) Lymphocytes % (Manual) Seg Neutrophils # Man Lymphocytes # (Manual) PT INR D-Dimer ABG pH ABG pO2 66.0 L ABG HCO3 ABG O2 Saturation 92.3 L ABG Base Excess ABG Hemoglobin 7.7 L Oxyhemoglobin 90.7 L Sodium Potassium Chloride Carbon Dioxide BUN Creatinine Glucose POC Glucose 108 H 153 H Lactic Acid Calcium Magnesium Iron TIBC Ferritin AST ALT Lactate Dehydrogenase Troponin T C-Reactive Protein Total Protein Albumin Cholesterol LDL Cholesterol Direct HDL Cholesterol Urine WBC (Auto) Vancomycin Trough Coronavirus (PCR) Crossmatch 07/08/19 07/08/19 07/08/19 16:15 18:22 23:35 WBC RBC Hgb Hct MCV MCH RDW Plt Count Seg Neuts % (Manual) Lymphocytes % (Manual) Seg Neutrophils # Man Lymphocytes # (Manual) PT INR D-Dimer ABG pH ABG pO2 ABG HCO3 ABG O2 Saturation ABG Base Excess ABG Hemoglobin Oxyhemoglobin Sodium 134 L Potassium 3.3 L Chloride Carbon Dioxide 21 L BUN 27 H Creatinine 0.6 L Glucose 146 H POC Glucose 134 H 133 H Lactic Acid Calcium Magnesium Iron TIBC Ferritin AST ALT Lactate Dehydrogenase Troponin T C-Reactive Protein Total Protein Albumin Cholesterol LDL Cholesterol Direct HDL Cholesterol Urine WBC (Auto) Vancomycin Trough Coronavirus (PCR) Crossmatch 07/09/19 07/09/19 07/09/19 04:30 04:30 05:00 WBC 18.9 H RBC 2.77 L Hgb 7.4 L Hct 22.8 L MCV 82 L MCH 27 L RDW 20.9 H Plt Count 130 L Seg Neuts % (Manual) 84.0 H Lymphocytes % (Manual) 0 L Seg Neutrophils # Man 15.9 H Lymphocytes # (Manual) 0.0 L PT INR D-Dimer ABG pH ABG pO2 ABG HCO3 ABG O2 Saturation ABG Base Excess ABG Hemoglobin Oxyhemoglobin Sodium Potassium 3.1 L Chloride Carbon Dioxide BUN 26 H Creatinine 0.5 L Glucose 125 H POC Glucose 155 H Lactic Acid Calcium Magnesium Iron TIBC Ferritin AST ALT Lactate Dehydrogenase Troponin T C-Reactive Protein Total Protein Albumin Cholesterol LDL Cholesterol Direct HDL Cholesterol Urine WBC (Auto) Vancomycin Trough Coronavirus (PCR) Crossmatch 07/09/19 07/09/19 07/09/19 05:55 12:22 17:50 WBC RBC Hgb Hct MCV MCH RDW Plt Count Seg Neuts % (Manual) Lymphocytes % (Manual) Seg Neutrophils # Man Lymphocytes # (Manual) PT INR D-Dimer ABG pH ABG pO2 62.8 L ABG HCO3 ABG O2 Saturation ABG Base Excess ABG Hemoglobin 6.1 L Oxyhemoglobin 93.9 L Sodium Potassium Chloride Carbon Dioxide BUN Creatinine Glucose POC Glucose 115 H 133 H Lactic Acid Calcium Magnesium Iron TIBC Ferritin AST ALT Lactate Dehydrogenase Troponin T C-Reactive Protein Total Protein Albumin Cholesterol LDL Cholesterol Direct HDL Cholesterol Urine WBC (Auto) Vancomycin Trough Coronavirus (PCR) Crossmatch 07/10/19 07/10/19 07/10/19 00:38 04:00 04:00 WBC RBC Hgb Hct MCV MCH RDW Plt Count Seg Neuts % (Manual) Lymphocytes % (Manual) Seg Neutrophils # Man Lymphocytes # (Manual) PT INR D-Dimer ABG pH ABG pO2 ABG HCO3 ABG O2 Saturation ABG Base Excess ABG Hemoglobin Oxyhemoglobin Sodium Potassium Chloride 107.9 H Carbon Dioxide BUN 26 H Creatinine 0.4 L Glucose 137 H POC Glucose 122 H Lactic Acid Calcium Magnesium 1.50 L Iron TIBC Ferritin AST ALT Lactate Dehydrogenase 277 H Troponin T C-Reactive Protein 15.10 H Total Protein Albumin Cholesterol LDL Cholesterol Direct HDL Cholesterol Urine WBC (Auto) Vancomycin Trough Coronavirus (PCR) Crossmatch 07/10/19 07/10/19 04:07 05:21 WBC RBC Hgb Hct MCV MCH RDW Plt Count Seg Neuts % (Manual) Lymphocytes % (Manual) Seg Neutrophils # Man Lymphocytes # (Manual) PT INR D-Dimer ABG pH ABG pO2 65.6 L ABG HCO3 26.3 H ABG O2 Saturation ABG Base Excess ABG Hemoglobin 6.7 L Oxyhemoglobin Sodium Potassium Chloride Carbon Dioxide BUN Creatinine Glucose POC Glucose 144 H Lactic Acid Calcium Magnesium Iron TIBC Ferritin AST ALT Lactate Dehydrogenase Troponin T C-Reactive Protein Total Protein Albumin Cholesterol LDL Cholesterol Direct HDL Cholesterol Urine WBC (Auto) Vancomycin Trough Coronavirus (PCR) Crossmatch Allied health notes reviewed: RT
[2019-07-10] MEDS ORDERED: MAGNESIUM SULFATE 2 GM/50 ML BAG IV ONE ×2 (10:00→11:00)
[2019-07-10] MEDS: DOCUSATE SODIUM 100 MG/10 ML ORAL LIQD PO SCH ×2 (10:58→21:35)
[2019-07-10] MEDS ORDERED: MAGNESIUM SULFATE 4 GM/100 ML BAG IV ONE (11:00)
--- NOTE | 2019-07-10 13:06 | Progress Note ---
Assessment and Plan Cultures: 07/03/2019 urine culture: No growth 07/03/2019 Tracheal aspirate: E.coli A/P: 69-year-old male with CVA, hypertension, dementia, schizophrenia, alcohol use disorder was admitted to the emergency room after being brought in by EMS with progressive shortness of breath and unresponsiveness. He was noted to have agonal breathing and a faint pulse requiring CPR. It seems patient was on hospice recently. #Shock, likely septic: Lactic acidosis #Severe COVID-19 disease and pneumonia: Elevated markers. Completed Plaquenil. #Acute respiratory failure: on mechanical ventilation. #Transaminitis: Likely from COVID-19, shock Recs: Last day of Ceftriaxone today supportive care for COVID-19 Yanna Calzada MD, FACP [facility] ([facility] C: [phone] O: [phone] F: [phone] Subjective Date of service: 07/10/19 Principal diagnosis: Bilateral pneumonia, severe sepsis with septic shock, encephalopathy Interval history: No fever. Remains intubated, on the vent. Remains off pressors. Objective - Exam Narrative Exam: Physical Exam (reviewed in chart due to PPE conservation) Constitutional: intubated, sedated, on the vent Head, Ears, Nose: normocephalic, atraumatic Eyes: limited due to PPE conservation strategy Neck: intubated Oral: intubated Cardiovascular: limited due to PPE conservation strategy Respiratory: limited due to PPE conservation strategy GI: limited due to PPE conservation strategy Musculoskeletal: limited due to PPE conservation strategy Skin: limited due to PPE conservation strategy Hem/Lymphatic: limited due to PPE conservation strategy Psych: no agitation Neurological: sedated, intubated, on the vent, exam limited - Constitutional Vitals: Vital Signs Temp Pulse Resp BP Pulse Ox 98.6 F 118 H 25 H 133/72 100 07/10/19 12:00 07/10/19 07:45 07/10/19 07:00 07/10/19 07:45 07/10/19 07:45 Temperature -Last 24 Hours Temperature 98.6 F Temperature 98.0 F Temperature 97.4 F Temperature 98.8 F Temperature 98.9 F - Labs CBC & Chem 7: 07/09/19 04:30 07/10/19 04:00 Labs: Abnormal lab results 07/09/19 07/10/19 07/10/19 Range/Units 17:50 00:38 04:00 ABG pO2 (80.0-90.0) mm Hg ABG HCO3 (20.0-26.0) mmol/L ABG Hemoglobin (14.0-18.0) gm/dl Chloride (98-107) mmol/L BUN (9-20) mg/dL Creatinine (0.8-1.5) mg/dL Glucose (75-100) mg/dL POC Glucose 133 H 122 H (70-105) Magnesium (1.7-2.3) mg/dL Lactate Dehydrogenase 277 H (91-180) units/L C-Reactive Protein 15.10 H (0.00-1.30) mg/dL 07/10/19 07/10/19 07/10/19 Range/Units 04:00 04:07 05:21 ABG pO2 65.6 L (80.0-90.0) mm Hg ABG HCO3 26.3 H (20.0-26.0) mmol/L ABG Hemoglobin 6.7 L (14.0-18.0) gm/dl Chloride 107.9 H (98-107) mmol/L BUN 26 H (9-20) mg/dL Creatinine 0.4 L (0.8-1.5) mg/dL Glucose 137 H (75-100) mg/dL POC Glucose 144 H (70-105) Magnesium 1.50 L (1.7-2.3) mg/dL Lactate Dehydrogenase (91-180) units/L C-Reactive Protein (0.00-1.30) mg/dL
[2019-07-10] MEDS ORDERED: POTASSIUM CHLORIDE 20 MEQ PACKET FEEDTUBE ONE (14:29)
--- NOTE | 2019-07-10 14:29 | Progress Note ---
Assessment and Plan COVid positive- Acute respiratory Failure with Hypoxia - Due to bilateral PNA with COVID 19 infection. -pulmonary critical care following -Continue scheduled labs, mechanical ventilation, supportive care as needed -Completed bacteremia Bilateral PNA with severe sepsis - see above -ID following, completed Plaquenil and cefepime Acute metabolic encephalopathy -Likely due to respiratory arrest and severe sepsis - Hold Hyoscamine. monitor Troponins. -CT head unremarkable Shock, likely septic: Lactic acidosis -Levophed as needed, continue IV fluid COPD with exacerbation -Likely due to COVID-19 pneumonia -Continue scheduled nebs Anemia, Microcytic - check iron, TIBC - monitor H&H, transfuse one unit Pressure Ulcers - buttocks, right lateral foot area - present upon admission - wound care consulted Hyponatremia, continue IV fluid DM type 2 - Accuchecks with sliding scale insulin HTN Essential, now hypotensive -relatively low BP - on IVF. monitor Seizure D/o/CVA/immobility/BIpolar D/o/SCZ chronic medical conditions - continue meds Severe PCM, TF for now, dietary following patient is DNR- Called and verified information Guarded prognosis, patient is critically ill 07/04: COVID +ve, start on plaquinil, called no answer 07/05: transfuse one unit PRBC, Hb dropped to ~6, called and updated 07/06; H&H stable, serum chemistry improved. On mechanical ventilation with high inflammatory markers. Continue Plaquenil and empiric antibiotics. ID following, prognosis remains guarded and extremely poor. 07/07: On mechanical ventilation with high inflammatory markers. Continue Plaquenil and empiric antibiotics. ID following, prognosis remains guarded and extremely poor. 07/08: Called today and verified the CODE STATUS. Patient remains DNR. He is still intubated, with poor prognosis. Continue to follow inflammatory markers. 07/09 wean off from vent as tolerated, completed empiric antibiotic and Plaquenil The high probability of a clinically significant, sudden or life threatening deterioration of the [respiratory, CVS, DRAFTER GEOPHYSICAL] system(s) required my full and direct attention, intervention and personal management. The aggregate critical care time was [32] minutes. This time is in addition to time spent performing reported procedures but includes the following: [x] Data Review and interpretation [x] Patient assessment and monitoring of vital signs [x] Documentation [x] Medication orders and management Brief History: 69-year-old male with PMH of CVA with RHP, HTN, DM2, SCZ, Dementia, Alcohol use D/o, Seizure D/O, presents to the emergency department via EMS from home with progressive SOB and impending espiratory failure with an unresponsive episode. Apparently the patient was witnessed becoming unresponsive by family members. Reportedly, pt had just gotten a high dose of Hyoscamine When EMS got there, the patient was agonal breathing and had a faint pulse. No CPR was indicated per EMS. PT was intubated and received some IV fluid en route to the hospital. He is COVID19 positibe. Patient now being managed sepsis, b/l PNA, acute respiratory failure. Subjective Date of service: 07/10/19 Principal diagnosis: Bilateral pneumonia, severe sepsis with septic shock, encephalopathy Interval history: Patient seen and examined. Medical records and medication list reviewed. No acute event overnight noted by the RN. Patient is positive for COVID-19. Patient remains intubated on mechanical ventilation Discussed plan of care at bedside with patient's RN. Objective - Exam Narrative Exam: General appearance: sedated on ventilator, intubated, other (emaciated) EENT: ATNC, other (pupils equal) Neck: Present: trachea midline Respiratory: Clear to Ascultation Heart: regular, S1S2, no murmurs Gastrointestinal: Present: normoactive bowel sounds, other (PEG tube noted). Absent: tenderness Integumentary: ulcer (both feet) Neurologic: other (not responding) Musculoskeletal: Present: other (trace ankle edema) - Constitutional Vitals: Vital Signs - 12hr 07/10/19 07/10/19 07/10/19 02:30 03:00 03:30 Temperature Pulse Rate 115 H 126 H 124 H Respiratory 25 H 30 H 28 H Rate Blood Pressure 138/72 143/71 155/89 O2 Sat by Pulse 98 98 97 Oximetry 07/10/19 07/10/19 07/10/19 03:41 04:00 04:30 Temperature 97.4 F L Pulse Rate 125 H 121 H Respiratory 29 H 28 H Rate Blood Pressure 144/86 142/82 O2 Sat by Pulse 97 98 Oximetry 07/10/19 07/10/19 07/10/19 05:00 05:30 05:34 Temperature Pulse Rate 120 H 120 H 119 H Respiratory 26 H 28 H Rate Blood Pressure 141/77 153/84 153/84 O2 Sat by Pulse 98 99 100 Oximetry 07/10/19 07/10/19 07/10/19 06:00 06:30 07:00 Temperature Pulse Rate 120 H 120 H 119 H Respiratory 27 H 25 H 25 H Rate Blood Pressure 150/82 148/89 145/84 O2 Sat by Pulse 100 100 100 Oximetry 07/10/19 07/10/19 07/10/19 07:45 08:10 12:00 Temperature 98.0 F 98.6 F Pulse Rate 118 H Respiratory Rate Blood Pressure 133/72 O2 Sat by Pulse 100 Oximetry 07/10/19 13:35 Temperature Pulse Rate 126 H Respiratory Rate Blood Pressure 135/79 O2 Sat by Pulse 97 Oximetry - Labs CBC & Chem 7: 07/09/19 04:30 07/11/19 05:14 Labs: Abnormal lab results 07/09/19 07/10/19 07/10/19 Range/Units 17:50 00:38 04:00 ABG pO2 (80.0-90.0) mm Hg ABG HCO3 (20.0-26.0) mmol/L ABG Hemoglobin (14.0-18.0) gm/dl Chloride (98-107) mmol/L BUN (9-20) mg/dL Creatinine (0.8-1.5) mg/dL Glucose (75-100) mg/dL POC Glucose 133 H 122 H (70-105) Magnesium (1.7-2.3) mg/dL Lactate Dehydrogenase 277 H (91-180) units/L C-Reactive Protein 15.10 H (0.00-1.30) mg/dL 07/10/19 07/10/19 07/10/19 Range/Units 04:00 04:07 05:21 ABG pO2 65.6 L (80.0-90.0) mm Hg ABG HCO3 26.3 H (20.0-26.0) mmol/L ABG Hemoglobin 6.7 L (14.0-18.0) gm/dl Chloride 107.9 H (98-107) mmol/L BUN 26 H (9-20) mg/dL Creatinine 0.4 L (0.8-1.5) mg/dL Glucose 137 H (75-100) mg/dL POC Glucose 144 H (70-105) Magnesium 1.50 L (1.7-2.3) mg/dL Lactate Dehydrogenase (91-180) units/L C-Reactive Protein (0.00-1.30) mg/dL
[2019-07-10] MEDS: SCOPOLAMINE TRANSDERMAL PATCH 72 HR TD SCH (17:08)
[2019-07-10] MEDS: cefTRIAXone/NS 1 GM/50 ML 1 GM/50 ML BAG IV SCH (21:36)
[2019-07-10] MEDS: SIMPLE SYRUP 15 ML FEEDTUBE PRN (21:56)
[2019-07-10] MEDS: SODIUM HYPOCHLORITE, DAKIN'S 1/2 STRENGTH (0.25%) 473 ML TOPICAL SOLN TP SCH (22:30)
[2019-07-11] MEDS: INSULIN LISPRO 100 UNIT/ML SUB-Q SCH ×4 (00:20→18:04)
[2019-07-11] MEDS: ACETAMINOPHEN 325 MG/10.15 ML ORAL LIQD UNIT DOSE PO PRN (04:16)
[2019-07-11] MEDS: MORPHINE 2 MG/1 ML INJ IV PRN ×2 (04:38→15:46)
[2019-07-11 05:56] LABS: ABG Base Excess 1.7 mmol/L (-2.0-3.0); ABG Methemoglobin 0.5 % (0.0-1.5); ABG PH 7.442 pH Units (7.350-7.450); ABG PO2 83.6 mm Hg (80.0-90.0)
[2019-07-11 06:29] LABS: BUN/Creatinine Ratio 65; Blood Urea Nitrogen 26 mg/dL (9-20); Hemolysis Index 4
--- NOTE | 2019-07-11 09:41 | Progress Note ---
Assessment and Plan S/p Cardiopulmonary arrest with ROSC Severe Sepsis with septic shock. Acute hypoxemic respiratory failure on MVS COVID-19 positive with elevated markers Bilateral pneumonia Elevated LFTs. Oropharyngeal dysphagia s/p PEG Acute kidney injury Decubitus ulcers-unstageable Moderate protein calorie malnutriton [id number] metabolic acidosis Leukocytosis -improving Thrombocytopenia Microcytic anemia -Secretion management, continue Scopolamine -Continue all critical care as documented below -ABG in the am, CBC in the am - continue airborne, droplet and contact isolation for COVID-19 - continue wound care per WCT - sedation prn for target RASS 0 to -1 - continue to wean supplemental oxygen for target O2 sat's > 90% - Daily SAT's and SBT assessment as tolerated - VAP bundle addressed - continue lung protective strategies - continue bronchodilators with pulmonary hygiene per RT - wean per pulmonary driven protocols otherwise - accuchecks with glycemic control per SSI (While critically ill target blood glucose of 140-180 mg/dL; avoid hypoglycemia) - continue to avoid benzodiazepines, reduce the possibility of delirium - prn analgesia per CPOT score - Maintenance of sleep-wake cycle, avoid delirium - continue enteral nutritional support at goal rate as tolerated - VTE prophylaxis-SCDs -Stress ulcer prophylaxis- Famotidine - PT/OT/ROM exercises - continue mobility protocol, off loading and skin assessment for pressure ulcer prevention - Monitor hemodynamics closely -Wright catheter in this critically ill patient with unstageable sacral decubitus ulcer -PEG site care - continue other care per attending / other consultants - discharge planning ongoing concurrently .... Re-evaluate in am & prn CONDITION: CRITICAL PROGNOSIS: GUARDED CODE STATUS: DNAR Called his family to discuss goals of care, unable to make contact with them He was apparently in hospice prior to this admission The high probability of a clinically significant, sudden or life-threatening deterioration of the [respiratory & cardiovascular] system(s) required my full and direct attention, intervention and personal management. The aggregate critical care time was [31] minutes without overlap. Time includes spent on; [x] Data Review and interpretation [x] Patient assessment and monitoring of vital signs [x] Documentation [x] Medication orders and management Subjective Date of service: 07/11/19 Principal diagnosis: Bilateral pneumonia, severe sepsis with septic shock, encephalopathy Interval history: The patient is a 69-year-old male with CVA, hypertension, dementia, schizophrenia, alcohol use disorder was admitted to the emergency room after being brought in by EMS with progressive shortness of breath and unresponsiveness. He was noted to have agonal breathing and a faint pulse requiring CPR. Patient was intubated and brought to the hospital. It seems, patient was on home hospice. Currently, remains critically ill, intubated, on mechanical ventilation. His COVID test resulted positive. Patient is seen today for: s/p cardiopulmonary arrest with ROSC;Ac hypoxemic R yayo failure on MVS; Severe sepsis with Shock; Bilateral Pneumonia; POSITIVE coronavirus-19 infection. Seen and examined at bedside; 24hour events reviewed; nursing and respiratory care staff consulted; no adverse overnight events reported to me; resting in bed. No reported fevers. On MVS and tolerating it well; remains off vasopresor support Tolerating tube feedings, no diarrhea, Mental status changes persist Copious oral and ETT secretions Current setting AC-VC 25/500/60%/PEEP 6 Objective Vital Signs - 12hr 07/10/19 07/10/19 07/10/19 22:00 22:25 22:30 Temperature Pulse Rate 128 H 124 H 123 H Pulse Rate [ From Monitor] Respiratory 25 H 25 H 25 H Rate Blood Pressure 140/77 129/71 124/70 O2 Sat by Pulse 100 100 100 Oximetry 07/10/19 07/10/19 07/11/19 23:00 23:30 00:00 Temperature 98.8 F Pulse Rate 121 H 122 H 123 H Pulse Rate [ 127 H From Monitor] Respiratory 25 H 25 H 25 H Rate Blood Pressure 127/66 123/65 128/71 O2 Sat by Pulse 100 100 98 Oximetry 07/11/19 07/11/19 07/11/19 00:08 00:30 01:00 Temperature Pulse Rate 124 H 127 H 127 H Pulse Rate [ From Monitor] Respiratory 25 H 26 H Rate Blood Pressure 128/71 135/70 138/70 O2 Sat by Pulse 99 100 99 Oximetry 07/11/19 07/11/19 07/11/19 01:30 02:01 02:30 Temperature Pulse Rate 126 H 128 H 131 H Pulse Rate [ From Monitor] Respiratory 25 H 25 H 27 H Rate Blood Pressure 136/72 136/68 133/73 O2 Sat by Pulse 99 99 100 Oximetry 07/11/19 07/11/19 07/11/19 03:01 03:31 04:00 Temperature 100.1 F H Pulse Rate 132 H 131 H 132 H Pulse Rate [ 118 H From Monitor] Respiratory 27 H 27 H 28 H Rate Blood Pressure 134/73 132/69 139/73 O2 Sat by Pulse 100 100 100 Oximetry 07/11/19 07/11/19 07/11/19 04:30 05:01 05:30 Temperature Pulse Rate 135 H 141 H 123 H Pulse Rate [ From Monitor] Respiratory 22 22 25 H Rate Blood Pressure 146/77 126/70 112/66 O2 Sat by Pulse 99 97 100 Oximetry 07/11/19 07/11/19 07/11/19 05:33 06:00 06:30 Temperature Pulse Rate 122 H 119 H 122 H Pulse Rate [ From Monitor] Respiratory 25 H 20 Rate Blood Pressure 112/66 112/64 114/63 O2 Sat by Pulse 100 100 100 Oximetry 07/11/19 07/11/19 07/11/19 07:00 07:30 08:00 Temperature 98.1 F Pulse Rate 120 H 118 H 117 H Pulse Rate [ 117 H From Monitor] Respiratory 24 25 H 24 Rate Blood Pressure 112/68 119/67 121/70 O2 Sat by Pulse 100 100 100 Oximetry 07/11/19 07/11/19 07/11/19 08:30 09:00 09:25 Temperature Pulse Rate 117 H 118 H 120 H Pulse Rate [ From Monitor] Respiratory 24 25 H Rate Blood Pressure 112/64 123/72 O2 Sat by Pulse 99 100 Oximetry 07/11/19 09:30 Temperature Pulse Rate 116 H Pulse Rate [ From Monitor] Respiratory 12 Rate Blood Pressure 131/80 O2 Sat by Pulse 100 Oximetry Constitutional: appears uncomfortable, other (eelderly and chronically ill looking AAM, normocephalic with mildly increased respiratory effort at rest) Eyes: non-icteric ENT: oropharynx moist, other (ETT 24 cm RUTH) Neck: supple, no lymphadenopathy, no JVD Effort: mildly labored Ascultation: Bilateral: diminished breath sounds, rhonchi Percussion: Bilateral: not dull Cardiovascular: regular rate and rhythm Gastrointestinal: normoactive bowel sounds, soft, non-tender, non-distended, other (+ PEG tube with mild TF leakage) Integumentary: decubitus ulcer Extremities: no cyanosis, no edema, pink and warm, pulses normal, other (contracted lower extremities) Neurologic: unable to assess (appears more awake this morning, tracking voice) Psychiatric: other (Unable to assess re: AMS) CBC and BMP: 07/09/19 04:30 07/11/19 05:14 ABG, PT/INR, D-dimer: ABG ABG pH 7.442 pH Units (7.350-7.450) 07/11/19 05:25 ABG pCO2 39.0 mm Hg 07/11/19 05:25 ABG pO2 83.6 mm Hg (80.0-90.0) 07/11/19 05:25 ABG O2 Saturation 97.0 % (95.0-99.0) 07/11/19 05:25 PT/INR, D-dimer PT 16.0 Sec. (12.2-14.9) H 07/03/19 22:20 INR 1.26 (0.87-1.13) H 07/03/19 22:20 D-Dimer 1142.18 ng/mlDDU (0-234) H 07/08/19 00:45 Abnormal lab findings: Abnormal Labs 07/03/19 07/03/19 07/03/19 19:57 21:10 21:13 WBC RBC Hgb Hct MCV MCH RDW Plt Count Seg Neuts % (Manual) Lymphocytes % (Manual) Seg Neutrophils # Man Lymphocytes # (Manual) PT INR D-Dimer ABG pH 7.238 L ABG pO2 210.8 H ABG HCO3 15.4 L ABG O2 Saturation 99.2 H ABG Base Excess -11.1 L ABG Hemoglobin 8.0 L Oxyhemoglobin Sodium 124 L Potassium Chloride 92.9 L Carbon Dioxide 10 L BUN 23 H Creatinine 0.5 L Glucose 118 H POC Glucose Lactic Acid Calcium 7.0 L Magnesium Iron TIBC Ferritin AST 70 H ALT 88 H Lactate Dehydrogenase Troponin T 0.032 H C-Reactive Protein Total Protein 5.0 L Albumin 1.8 L Cholesterol 47 L LDL Cholesterol Direct 25 L HDL Cholesterol 20 L Urine WBC (Auto) 12.0 H Vancomycin Trough Coronavirus (PCR) Crossmatch 07/03/19 07/03/19 07/03/19 22:20 22:20 22:20 WBC 30.5 H RBC 2.96 L Hgb 7.7 L Hct 23.9 L MCV 81 L MCH 26 L RDW 18.6 H Plt Count 459 H Seg Neuts % (Manual) 93.0 H Lymphocytes % (Manual) 0.5 L Seg Neutrophils # Man 28.4 H Lymphocytes # (Manual) 0.2 L PT 16.0 H INR 1.26 H D-Dimer ABG pH ABG pO2 ABG HCO3 ABG O2 Saturation ABG Base Excess ABG Hemoglobin Oxyhemoglobin Sodium Potassium Chloride Carbon Dioxide BUN Creatinine Glucose POC Glucose Lactic Acid 6.90 H* Calcium Magnesium Iron TIBC Ferritin AST ALT Lactate Dehydrogenase Troponin T C-Reactive Protein Total Protein Albumin Cholesterol LDL Cholesterol Direct HDL Cholesterol Urine WBC (Auto) Vancomycin Trough Coronavirus (PCR) Crossmatch 07/03/19 07/04/19 07/04/19 23:58 05:15 07:05 WBC 17.1 H RBC 3.22 L Hgb 8.3 L Hct 25.4 L MCV 79 L MCH 26 L RDW 18.6 H Plt Count Seg Neuts % (Manual) 74.0 H Lymphocytes % (Manual) 0 L Seg Neutrophils # Man 12.7 H Lymphocytes # (Manual) 0.0 L PT INR D-Dimer ABG pH 7.310 L ABG pO2 73.2 L ABG HCO3 17.8 L ABG O2 Saturation 93.8 L ABG Base Excess -7.7 L ABG Hemoglobin 9.6 L Oxyhemoglobin 92.3 L Sodium Potassium Chloride Carbon Dioxide BUN Creatinine Glucose POC Glucose Lactic Acid 7.10 H* Calcium Magnesium Iron TIBC Ferritin AST ALT Lactate Dehydrogenase Troponin T C-Reactive Protein Total Protein Albumin Cholesterol LDL Cholesterol Direct HDL Cholesterol Urine WBC (Auto) Vancomycin Trough Coronavirus (PCR) Crossmatch 07/04/19 07/04/19 07/04/19 07:05 07:05 07:05 WBC RBC Hgb Hct MCV MCH RDW Plt Count Seg Neuts % (Manual) Lymphocytes % (Manual) Seg Neutrophils # Man Lymphocytes # (Manual) PT INR D-Dimer ABG pH ABG pO2 ABG HCO3 ABG O2 Saturation ABG Base Excess ABG Hemoglobin Oxyhemoglobin Sodium 120 L Potassium 5.1 H Chloride 90.0 L Carbon Dioxide 14 L BUN 26 H Creatinine 0.5 L Glucose POC Glucose Lactic Acid 3.30 H* Calcium 8.0 L Magnesium Iron 9 L TIBC 97 L Ferritin AST 73 H ALT 91 H Lactate Dehydrogenase Troponin T C-Reactive Protein Total Protein 5.5 L Albumin 2.0 L Cholesterol LDL Cholesterol Direct HDL Cholesterol Urine WBC (Auto) Vancomycin Trough Coronavirus (PCR) Crossmatch 07/04/19 07/04/19 07/04/19 09:39 09:39 09:39 WBC RBC Hgb Hct MCV MCH RDW Plt Count Seg Neuts % (Manual) Lymphocytes % (Manual) Seg Neutrophils # Man Lymphocytes # (Manual) PT INR D-Dimer 1419.14 H ABG pH ABG pO2 ABG HCO3 ABG O2 Saturation ABG Base Excess ABG Hemoglobin Oxyhemoglobin Sodium Potassium Chloride Carbon Dioxide BUN Creatinine Glucose POC Glucose Lactic Acid Calcium Magnesium Iron TIBC Ferritin 1719.0 H AST ALT Lactate Dehydrogenase 234 H Troponin T C-Reactive Protein 15.50 H Total Protein Albumin Cholesterol LDL Cholesterol Direct HDL Cholesterol Urine WBC (Auto) Vancomycin Trough Coronavirus (PCR) Crossmatch 07/04/19 07/04/19 07/04/19 10:09 18:08 18:28 WBC RBC Hgb Hct MCV MCH RDW Plt Count Seg Neuts % (Manual) Lymphocytes % (Manual) Seg Neutrophils # Man Lymphocytes # (Manual) PT INR D-Dimer ABG pH ABG pO2 ABG HCO3 ABG O2 Saturation ABG Base Excess ABG Hemoglobin Oxyhemoglobin Sodium 117 L* Potassium 5.6 H Chloride 90.3 L Carbon Dioxide 16 L BUN 28 H Creatinine 0.5 L Glucose 58 L POC Glucose 65 L Lactic Acid Calcium 8.2 L Magnesium Iron TIBC Ferritin AST ALT Lactate Dehydrogenase Troponin T C-Reactive Protein Total Protein Albumin Cholesterol LDL Cholesterol Direct HDL Cholesterol Urine WBC (Auto) Vancomycin Trough Coronavirus (PCR) Positive A Crossmatch 07/04/19 07/04/19 07/04/19 23:45 Unknown Unknown WBC RBC Hgb Hct MCV MCH RDW Plt Count Seg Neuts % (Manual) Lymphocytes % (Manual) Seg Neutrophils # Man Lymphocytes # (Manual) PT INR D-Dimer 759.77 H ABG pH ABG pO2 ABG HCO3 ABG O2 Saturation ABG Base Excess ABG Hemoglobin Oxyhemoglobin Sodium 122 L Potassium Chloride 93.0 L Carbon Dioxide 19 L BUN 27 H Creatinine 0.5 L Glucose POC Glucose Lactic Acid Calcium 8.3 L Magnesium Iron TIBC Ferritin 1301.0 H AST ALT Lactate Dehydrogenase Troponin T C-Reactive Protein Total Protein Albumin Cholesterol LDL Cholesterol Direct HDL Cholesterol Urine WBC (Auto) Vancomycin Trough Coronavirus (PCR) Crossmatch 07/04/19 07/05/19 07/05/19 Unknown 03:20 04:00 WBC RBC Hgb Hct MCV MCH RDW Plt Count Seg Neuts % (Manual) Lymphocytes % (Manual) Seg Neutrophils # Man Lymphocytes # (Manual) PT INR D-Dimer ABG pH ABG pO2 60.6 L ABG HCO3 ABG O2 Saturation 93.5 L ABG Base Excess -2.4 L ABG Hemoglobin 6.9 L Oxyhemoglobin 92.0 L Sodium 125 L Potassium Chloride 92.6 L Carbon Dioxide 19 L BUN 24 H Creatinine 0.6 L Glucose POC Glucose Lactic Acid Calcium 8.2 L Magnesium 1.40 L Iron TIBC Ferritin AST ALT Lactate Dehydrogenase 242 H Troponin T C-Reactive Protein 16.70 H Total Protein Albumin Cholesterol LDL Cholesterol Direct HDL Cholesterol Urine WBC (Auto) Vancomycin Trough Coronavirus (PCR) Crossmatch 07/05/19 07/05/19 07/05/19 10:11 16:15 17:54 WBC 46.4 H* RBC 2.77 L Hgb 7.2 L Hct 21.9 L MCV 79 L MCH 26 L RDW 19.0 H Plt Count Seg Neuts % (Manual) 82.0 H Lymphocytes % (Manual) 1.0 L Seg Neutrophils # Man 38.0 H Lymphocytes # (Manual) 0.5 L PT INR D-Dimer ABG pH ABG pO2 ABG HCO3 ABG O2 Saturation ABG Base Excess ABG Hemoglobin Oxyhemoglobin Sodium Potassium Chloride Carbon Dioxide BUN Creatinine Glucose POC Glucose 69 L Lactic Acid Calcium Magnesium Iron TIBC Ferritin AST ALT Lactate Dehydrogenase Troponin T C-Reactive Protein Total Protein Albumin Cholesterol LDL Cholesterol Direct HDL Cholesterol Urine WBC (Auto) Vancomycin Trough 23.2 H Coronavirus (PCR) Crossmatch 07/05/19 07/06/19 07/06/19 19:58 00:27 00:27 WBC RBC Hgb Hct MCV MCH RDW Plt Count Seg Neuts % (Manual) Lymphocytes % (Manual) Seg Neutrophils # Man Lymphocytes # (Manual) PT INR D-Dimer 1333.22 H ABG pH ABG pO2 ABG HCO3 ABG O2 Saturation ABG Base Excess ABG Hemoglobin Oxyhemoglobin Sodium 127 L Potassium Chloride Carbon Dioxide BUN Creatinine Glucose POC Glucose Lactic Acid Calcium Magnesium Iron TIBC Ferritin 977.1 H AST ALT Lactate Dehydrogenase Troponin T C-Reactive Protein Total Protein Albumin Cholesterol LDL Cholesterol Direct HDL Cholesterol Urine WBC (Auto) Vancomycin Trough Coronavirus (PCR) Crossmatch 07/06/19 07/06/19 07/06/19 00:27 02:00 02:56 WBC RBC Hgb Hct MCV MCH RDW Plt Count Seg Neuts % (Manual) Lymphocytes % (Manual) Seg Neutrophils # Man Lymphocytes # (Manual) PT INR D-Dimer ABG pH ABG pO2 70.3 L ABG HCO3 ABG O2 Saturation 94.8 L ABG Base Excess ABG Hemoglobin 8.0 L Oxyhemoglobin 93.2 L Sodium Potassium Chloride Carbon Dioxide BUN Creatinine Glucose POC Glucose 117 H Lactic Acid Calcium Magnesium Iron TIBC Ferritin AST ALT Lactate Dehydrogenase 236 H Troponin T C-Reactive Protein 22.90 H Total Protein Albumin Cholesterol LDL Cholesterol Direct HDL Cholesterol Urine WBC (Auto) Vancomycin Trough Coronavirus (PCR) Crossmatch 07/06/19 07/06/19 07/06/19 03:49 03:49 07:40 WBC 38.8 H RBC 2.51 L Hgb 6.7 L Hct 19.9 L* MCV 79 L MCH 27 L RDW 19.2 H Plt Count Seg Neuts % (Manual) 90.5 H Lymphocytes % (Manual) 1.0 L Seg Neutrophils # Man 35.1 H Lymphocytes # (Manual) 0.4 L PT INR D-Dimer ABG pH ABG pO2 ABG HCO3 ABG O2 Saturation ABG Base Excess ABG Hemoglobin Oxyhemoglobin Sodium 131 L Potassium Chloride 96.9 L Carbon Dioxide 18 L BUN 23 H Creatinine 0.5 L Glucose POC Glucose Lactic Acid Calcium 8.0 L Magnesium Iron TIBC Ferritin AST ALT Lactate Dehydrogenase Troponin T C-Reactive Protein Total Protein Albumin Cholesterol LDL Cholesterol Direct HDL Cholesterol Urine WBC (Auto) Vancomycin Trough Coronavirus (PCR) Crossmatch See Detail 07/06/19 07/06/19 07/06/19 12:38 14:39 20:00 WBC RBC Hgb Hct MCV MCH RDW Plt Count Seg Neuts % (Manual) Lymphocytes % (Manual) Seg Neutrophils # Man Lymphocytes # (Manual) PT INR D-Dimer ABG pH ABG pO2 ABG HCO3 ABG O2 Saturation ABG Base Excess ABG Hemoglobin Oxyhemoglobin Sodium Potassium Chloride Carbon Dioxide BUN Creatinine Glucose POC Glucose 112 H 111 H 140 H Lactic Acid Calcium Magnesium Iron TIBC Ferritin AST ALT Lactate Dehydrogenase Troponin T C-Reactive Protein Total Protein Albumin Cholesterol LDL Cholesterol Direct HDL Cholesterol Urine WBC (Auto) Vancomycin Trough Coronavirus (PCR) Crossmatch 07/06/19 07/06/19 07/07/19 22:43 22:56 02:20 WBC RBC Hgb 7.9 L Hct 23.1 L MCV MCH RDW Plt Count Seg Neuts % (Manual) Lymphocytes % (Manual) Seg Neutrophils # Man Lymphocytes # (Manual) PT INR D-Dimer ABG pH ABG pO2 ABG HCO3 ABG O2 Saturation ABG Base Excess ABG Hemoglobin Oxyhemoglobin Sodium Potassium Chloride Carbon Dioxide BUN Creatinine Glucose POC Glucose 122 H 149 H Lactic Acid Calcium Magnesium Iron TIBC Ferritin AST ALT Lactate Dehydrogenase Troponin T C-Reactive Protein Total Protein Albumin Cholesterol LDL Cholesterol Direct HDL Cholesterol Urine WBC (Auto) Vancomycin Trough Coronavirus (PCR) Crossmatch 07/07/19 07/07/19 07/07/19 04:35 05:27 05:34 WBC 23.1 H RBC 3.00 L Hgb 8.1 L Hct 24.2 L MCV 81 L MCH 27 L RDW 20.6 H Plt Count Seg Neuts % (Manual) 90.0 H Lymphocytes % (Manual) 2.0 L Seg Neutrophils # Man 20.8 H Lymphocytes # (Manual) 0.5 L PT INR D-Dimer ABG pH ABG pO2 65.8 L ABG HCO3 ABG O2 Saturation 92.2 L ABG Base Excess ABG Hemoglobin 8.3 L Oxyhemoglobin 90.6 L Sodium Potassium Chloride Carbon Dioxide BUN Creatinine Glucose POC Glucose 132 H Lactic Acid Calcium Magnesium Iron TIBC Ferritin AST ALT Lactate Dehydrogenase Troponin T C-Reactive Protein Total Protein Albumin Cholesterol LDL Cholesterol Direct HDL Cholesterol Urine WBC (Auto) Vancomycin Trough Coronavirus (PCR) Crossmatch 07/07/19 07/07/19 07/07/19 05:34 11:50 15:58 WBC RBC Hgb 8.1 L Hct 24.2 L MCV MCH RDW Plt Count Seg Neuts % (Manual) Lymphocytes % (Manual) Seg Neutrophils # Man Lymphocytes # (Manual) PT INR D-Dimer ABG pH ABG pO2 ABG HCO3 ABG O2 Saturation ABG Base Excess ABG Hemoglobin Oxyhemoglobin Sodium 135 L Potassium 3.3 L Chloride Carbon Dioxide 20 L BUN 27 H Creatinine 0.6 L Glucose 121 H POC Glucose 123 H Lactic Acid Calcium 8.0 L Magnesium Iron TIBC Ferritin AST ALT Lactate Dehydrogenase Troponin T C-Reactive Protein Total Protein Albumin Cholesterol LDL Cholesterol Direct HDL Cholesterol Urine WBC (Auto) Vancomycin Trough Coronavirus (PCR) Crossmatch 07/07/19 07/07/19 07/07/19 17:42 22:00 23:53 WBC RBC Hgb 8.0 L Hct 23.4 L MCV MCH RDW Plt Count Seg Neuts % (Manual) Lymphocytes % (Manual) Seg Neutrophils # Man Lymphocytes # (Manual) PT INR D-Dimer ABG pH ABG pO2 ABG HCO3 ABG O2 Saturation ABG Base Excess ABG Hemoglobin Oxyhemoglobin Sodium Potassium Chloride Carbon Dioxide BUN Creatinine Glucose POC Glucose 107 H 117 H Lactic Acid Calcium Magnesium Iron TIBC Ferritin AST ALT Lactate Dehydrogenase Troponin T C-Reactive Protein Total Protein Albumin Cholesterol LDL Cholesterol Direct HDL Cholesterol Urine WBC (Auto) Vancomycin Trough Coronavirus (PCR) Crossmatch 07/08/19 07/08/19 07/08/19 00:45 00:45 00:45 WBC RBC Hgb Hct MCV MCH RDW Plt Count Seg Neuts % (Manual) Lymphocytes % (Manual) Seg Neutrophils # Man Lymphocytes # (Manual) PT INR D-Dimer 1142.18 H ABG pH ABG pO2 ABG HCO3 ABG O2 Saturation ABG Base Excess ABG Hemoglobin Oxyhemoglobin Sodium Potassium Chloride Carbon Dioxide BUN Creatinine Glucose POC Glucose Lactic Acid Calcium Magnesium Iron TIBC Ferritin 839.0 H AST ALT Lactate Dehydrogenase 253 H Troponin T C-Reactive Protein 18.90 H Total Protein Albumin Cholesterol LDL Cholesterol Direct HDL Cholesterol Urine WBC (Auto) Vancomycin Trough Coronavirus (PCR) Crossmatch 07/08/19 07/08/19 07/08/19 04:30 05:11 12:02 WBC RBC Hgb Hct MCV MCH RDW Plt Count Seg Neuts % (Manual) Lymphocytes % (Manual) Seg Neutrophils # Man Lymphocytes # (Manual) PT INR D-Dimer ABG pH ABG pO2 66.0 L ABG HCO3 ABG O2 Saturation 92.3 L ABG Base Excess ABG Hemoglobin 7.7 L Oxyhemoglobin 90.7 L Sodium Potassium Chloride Carbon Dioxide BUN Creatinine Glucose POC Glucose 108 H 153 H Lactic Acid Calcium Magnesium Iron TIBC Ferritin AST ALT Lactate Dehydrogenase Troponin T C-Reactive Protein Total Protein Albumin Cholesterol LDL Cholesterol Direct HDL Cholesterol Urine WBC (Auto) Vancomycin Trough Coronavirus (PCR) Crossmatch 07/08/19 07/08/19 07/08/19 16:15 18:22 23:35 WBC RBC Hgb Hct MCV MCH RDW Plt Count Seg Neuts % (Manual) Lymphocytes % (Manual) Seg Neutrophils # Man Lymphocytes # (Manual) PT INR D-Dimer ABG pH ABG pO2 ABG HCO3 ABG O2 Saturation ABG Base Excess ABG Hemoglobin Oxyhemoglobin Sodium 134 L Potassium 3.3 L Chloride Carbon Dioxide 21 L BUN 27 H Creatinine 0.6 L Glucose 146 H POC Glucose 134 H 133 H Lactic Acid Calcium Magnesium Iron TIBC Ferritin AST ALT Lactate Dehydrogenase Troponin T C-Reactive Protein Total Protein Albumin Cholesterol LDL Cholesterol Direct HDL Cholesterol Urine WBC (Auto) Vancomycin Trough Coronavirus (PCR) Crossmatch 07/09/19 07/09/19 07/09/19 04:30 04:30 05:00 WBC 18.9 H RBC 2.77 L Hgb 7.4 L Hct 22.8 L MCV 82 L MCH 27 L RDW 20.9 H Plt Count 130 L Seg Neuts % (Manual) 84.0 H Lymphocytes % (Manual) 0 L Seg Neutrophils # Man 15.9 H Lymphocytes # (Manual) 0.0 L PT INR D-Dimer ABG pH ABG pO2 ABG HCO3 ABG O2 Saturation ABG Base Excess ABG Hemoglobin Oxyhemoglobin Sodium Potassium 3.1 L Chloride Carbon Dioxide BUN 26 H Creatinine 0.5 L Glucose 125 H POC Glucose 155 H Lactic Acid Calcium Magnesium Iron TIBC Ferritin AST ALT Lactate Dehydrogenase Troponin T C-Reactive Protein Total Protein Albumin Cholesterol LDL Cholesterol Direct HDL Cholesterol Urine WBC (Auto) Vancomycin Trough Coronavirus (PCR) Crossmatch 07/09/19 07/09/19 07/09/19 05:55 12:22 17:50 WBC RBC Hgb Hct MCV MCH RDW Plt Count Seg Neuts % (Manual) Lymphocytes % (Manual) Seg Neutrophils # Man Lymphocytes # (Manual) PT INR D-Dimer ABG pH ABG pO2 62.8 L ABG HCO3 ABG O2 Saturation ABG Base Excess ABG Hemoglobin 6.1 L Oxyhemoglobin 93.9 L Sodium Potassium Chloride Carbon Dioxide BUN Creatinine Glucose POC Glucose 115 H 133 H Lactic Acid Calcium Magnesium Iron TIBC Ferritin AST ALT Lactate Dehydrogenase Troponin T C-Reactive Protein Total Protein Albumin Cholesterol LDL Cholesterol Direct HDL Cholesterol Urine WBC (Auto) Vancomycin Trough Coronavirus (PCR) Crossmatch 07/10/19 07/10/19 07/10/19 00:38 04:00 04:00 WBC RBC Hgb Hct MCV MCH RDW Plt Count Seg Neuts % (Manual) Lymphocytes % (Manual) Seg Neutrophils # Man Lymphocytes # (Manual) PT INR D-Dimer ABG pH ABG pO2 ABG HCO3 ABG O2 Saturation ABG Base Excess ABG Hemoglobin Oxyhemoglobin Sodium Potassium Chloride 107.9 H Carbon Dioxide BUN 26 H Creatinine 0.4 L Glucose 137 H POC Glucose 122 H Lactic Acid Calcium Magnesium 1.50 L Iron TIBC Ferritin AST ALT Lactate Dehydrogenase 277 H Troponin T C-Reactive Protein 15.10 H Total Protein Albumin Cholesterol LDL Cholesterol Direct HDL Cholesterol Urine WBC (Auto) Vancomycin Trough Coronavirus (PCR) Crossmatch 07/10/19 07/10/19 07/10/19 04:07 05:21 17:25 WBC RBC Hgb Hct MCV MCH RDW Plt Count Seg Neuts % (Manual) Lymphocytes % (Manual) Seg Neutrophils # Man Lymphocytes # (Manual) PT INR D-Dimer ABG pH ABG pO2 65.6 L ABG HCO3 26.3 H ABG O2 Saturation ABG Base Excess ABG Hemoglobin 6.7 L Oxyhemoglobin Sodium Potassium Chloride Carbon Dioxide BUN Creatinine Glucose POC Glucose 144 H 113 H Lactic Acid Calcium Magnesium Iron TIBC Ferritin AST ALT Lactate Dehydrogenase Troponin T C-Reactive Protein Total Protein Albumin Cholesterol LDL Cholesterol Direct HDL Cholesterol Urine WBC (Auto) Vancomycin Trough Coronavirus (PCR) Crossmatch 07/11/19 07/11/19 07/11/19 00:07 05:14 05:25 WBC RBC Hgb Hct MCV MCH RDW Plt Count Seg Neuts % (Manual) Lymphocytes % (Manual) Seg Neutrophils # Man Lymphocytes # (Manual) PT INR D-Dimer ABG pH ABG pO2 ABG HCO3 ABG O2 Saturation ABG Base Excess ABG Hemoglobin 5.8 L Oxyhemoglobin Sodium Potassium Chloride 108.0 H Carbon Dioxide BUN 26 H Creatinine 0.4 L Glucose 110 H POC Glucose 121 H Lactic Acid Calcium Magnesium Iron TIBC Ferritin AST ALT Lactate Dehydrogenase Troponin T C-Reactive Protein Total Protein Albumin Cholesterol LDL Cholesterol Direct HDL Cholesterol Urine WBC (Auto) Vancomycin Trough Coronavirus (PCR) Crossmatch Allied health notes reviewed: RT
[2019-07-11] MEDS: SODIUM HYPOCHLORITE, DAKIN'S 1/2 STRENGTH (0.25%) 473 ML TOPICAL SOLN TP SCH ×3 (10:15→21:13)
[2019-07-11] MEDS ORDERED: MAGNESIUM SULFATE 2 GM/50 ML BAG IV ONE (11:00)
[2019-07-11] MEDS ORDERED: POTASSIUM CHLORIDE 20 MEQ PACKET FEEDTUBE ONE (11:00)
--- NOTE | 2019-07-11 11:05 | Progress Note ---
Assessment and Plan Cultures: 07/03/2019 urine culture: No growth 07/03/2019 Tracheal aspirate: E.coli A/P: 69-year-old male with CVA, hypertension, dementia, schizophrenia, alcohol use disorder was admitted to the emergency room after being brought in by EMS with progressive shortness of breath and unresponsiveness. He was noted to have agonal breathing and a faint pulse requiring CPR. It seems patient was on hospice recently. #Shock, likely septic: Lactic acidosis #Severe COVID-19 disease and pneumonia: Elevated markers. Completed Plaquenil. Completed Ceftriaxone from E.coli in tracheal aspirate. #Acute respiratory failure: on mechanical ventilation. #Transaminitis: Likely from COVID-19, shock Recs: completed abx, completed Plaquenil. Remains afebrile continue supportive care for COVID-19 Yanna Calzada MD, FACP [facility] C: [phone] O: [phone] F: [phone] Subjective Date of service: 07/11/19 Principal diagnosis: Bilateral pneumonia, severe sepsis with septic shock, encephalopathy Interval history: No fever. Remains intubated, on the vent. Remains off pressors. Objective - Exam Narrative Exam: Physical Exam (reviewed in chart due to PPE conservation) Constitutional: intubated, sedated, on the vent Head, Ears, Nose: normocephalic, atraumatic Eyes: limited due to PPE conservation strategy Neck: intubated Oral: intubated Cardiovascular: limited due to PPE conservation strategy Respiratory: limited due to PPE conservation strategy GI: limited due to PPE conservation strategy Musculoskeletal: limited due to PPE conservation strategy Skin: limited due to PPE conservation strategy Hem/Lymphatic: limited due to PPE conservation strategy Psych: no agitation Neurological: sedated, intubated, on the vent, exam limited - Constitutional Vitals: Vital Signs Temp Pulse Resp BP Pulse Ox 98.1 F 116 H 12 131/80 100 07/11/19 08:00 07/11/19 09:30 07/11/19 09:30 07/11/19 09:30 07/11/19 09:30 Temperature -Last 24 Hours Temperature 98.1 F Temperature 100.1 F Temperature 98.8 F Temperature 97.6 F Temperature 98.7 F Temperature 98.6 F - Labs CBC & Chem 7: 07/09/19 04:30 07/11/19 05:14 Labs: Abnormal lab results 07/10/19 07/11/19 07/11/19 Range/Units 17:25 00:07 05:14 ABG Hemoglobin (14.0-18.0) gm/dl Chloride 108.0 H (98-107) mmol/L BUN 26 H (9-20) mg/dL Creatinine 0.4 L (0.8-1.5) mg/dL Glucose 110 H (75-100) mg/dL POC Glucose 113 H 121 H (70-105) 07/11/19 Range/Units 05:25 ABG Hemoglobin 5.8 L (14.0-18.0) gm/dl Chloride (98-107) mmol/L BUN (9-20) mg/dL Creatinine (0.8-1.5) mg/dL Glucose (75-100) mg/dL POC Glucose (70-105)
[2019-07-11] MEDS: DOCUSATE SODIUM 100 MG/10 ML ORAL LIQD PO SCH ×2 (11:12→21:12)
[2019-07-11] MEDS: levETIRAcetam 500 MG/5 ML ORAL LIQD FEEDTUBE SCH ×2 (11:12→21:12)
[2019-07-11] MEDS: FOLIC ACID 1 MG TAB PO SCH (11:12)
[2019-07-11] MEDS: ASPIRIN 81 MG TAB CHEW PO SCH (11:12)
[2019-07-11] MEDS: FAMOTIDINE 20 MG TAB PO SCH ×2 (11:13→21:12)
--- NOTE | 2019-07-11 12:36 | Progress Note ---
Assessment and Plan COVid positive- Acute respiratory Failure with Hypoxia - Due to bilateral PNA with COVID 19 infection. -pulmonary critical care following -Continue scheduled labs, mechanical ventilation, supportive care as needed -Completed bacteremia Bilateral PNA with severe sepsis - see above -ID following, completed Plaquenil and cefepime Acute metabolic encephalopathy -Likely due to respiratory arrest and severe sepsis - Hold Hyoscamine. monitor Troponins. -CT head unremarkable Shock, likely septic: Lactic acidosis -Levophed as needed, continue IV fluid COPD with exacerbation -Likely due to COVID-19 pneumonia -Continue scheduled nebs Anemia, Microcytic - check iron, TIBC - monitor H&H, transfuse one unit Pressure Ulcers - buttocks, right lateral foot area - present upon admission - wound care consulted Hyponatremia, continue IV fluid DM type 2 - Accuchecks with sliding scale insulin HTN Essential, now hypotensive -relatively low BP - on IVF. monitor Seizure D/o/CVA/immobility/BIpolar D/o/SCZ chronic medical conditions - continue meds Severe PCM, TF for now, dietary following patient is DNR- Called and verified information Guarded prognosis, patient is critically ill 07/04: COVID +ve, start on plaquinil, called no answer 07/05: transfuse one unit PRBC, Hb dropped to ~6, called and updated 07/06; H&H stable, serum chemistry improved. On mechanical ventilation with high inflammatory markers. Continue Plaquenil and empiric antibiotics. ID following, prognosis remains guarded and extremely poor. 07/07: On mechanical ventilation with high inflammatory markers. Continue Plaquenil and empiric antibiotics. ID following, prognosis remains guarded and extremely poor. 07/08: Called today and verified the CODE STATUS. Patient remains DNR. He is still intubated, with poor prognosis. Continue to follow inflammatory markers. 07/09 wean off from vent as tolerated, completed empiric antibiotic and Plaquenil 07/10 wean off from vent as tolerated. poor prognosis The high probability of a clinically significant, sudden or life threatening deterioration of the [respiratory, CVS, STATEMENT SERVICES REPRESENTATIVE] system(s) required my full and direct attention, intervention and personal management. The aggregate critical care time was [32] minutes. This time is in addition to time spent performing reported procedures but includes the following: [x] Data Review and interpretation [x] Patient assessment and monitoring of vital signs [x] Documentation [x] Medication orders and management Brief History: 69-year-old male with PMH of CVA with RHP, HTN, DM2, SCZ, Dementia, Alcohol use D/o, Seizure D/O, presents to the emergency department via EMS from home with progressive SOB and impending espiratory failure with an unresponsive episode. Apparently the patient was witnessed becoming unresponsive by family members. Reportedly, pt had just gotten a high dose of Hyoscamine When EMS got there, the patient was agonal breathing and had a faint pulse. No CPR was indicated per EMS. PT was intubated and received some IV fluid en route to the hospital. He is COVID19 positibe. Patient now being managed sepsis, b/l PNA, acute respiratory failure. Subjective Date of service: 07/11/19 Principal diagnosis: Bilateral pneumonia, severe sepsis with septic shock, encephalopathy Interval history: Patient seen and examined. Medical records and medication list reviewed. No acute event overnight noted by the RN. Patient is positive for COVID-19. Patient remains intubated on mechanical ventilation Discussed plan of care at bedside with patient's RN. Objective - Exam Narrative Exam: General appearance: sedated on ventilator, intubated, other (emaciated) EENT: ATNC, other (pupils equal) Neck: Present: trachea midline Respiratory: Clear to Ascultation Heart: regular, S1S2, no murmurs Gastrointestinal: Present: normoactive bowel sounds, other (PEG tube noted). Absent: tenderness Integumentary: ulcer (both feet) Neurologic: other (not responding) Musculoskeletal: Present: other (trace ankle edema) - Constitutional Vitals: Vital Signs - 12hr 07/11/19 07/11/19 07/11/19 01:00 01:30 02:01 Temperature Pulse Rate 127 H 126 H 128 H Pulse Rate [ From Monitor] Respiratory 26 H 25 H 25 H Rate Blood Pressure 138/70 136/72 136/68 O2 Sat by Pulse 99 99 99 Oximetry 07/11/19 07/11/19 07/11/19 02:30 03:01 03:31 Temperature Pulse Rate 131 H 132 H 131 H Pulse Rate [ From Monitor] Respiratory 27 H 27 H 27 H Rate Blood Pressure 133/73 134/73 132/69 O2 Sat by Pulse 100 100 100 Oximetry 04/22/20 04/22/20 04/22/20 04:00 04:30 05:01 Temperature 100.1 F H Pulse Rate 132 H 135 H 141 H Pulse Rate [ 118 H From Monitor] Respiratory 28 H 22 22 Rate Blood Pressure 139/73 146/77 126/70 O2 Sat by Pulse 100 99 97 Oximetry 07/11/19 07/11/19 07/11/19 05:30 05:33 06:00 Temperature Pulse Rate 123 H 122 H 119 H Pulse Rate [ From Monitor] Respiratory 25 H 25 H Rate Blood Pressure 112/66 112/66 112/64 O2 Sat by Pulse 100 100 100 Oximetry 07/11/19 07/11/19 07/11/19 06:30 07:00 07:30 Temperature Pulse Rate 122 H 120 H 118 H Pulse Rate [ From Monitor] Respiratory 20 24 25 H Rate Blood Pressure 114/63 112/68 119/67 O2 Sat by Pulse 100 100 100 Oximetry 07/11/19 07/11/19 07/11/19 08:00 08:30 09:00 Temperature 98.1 F Pulse Rate 117 H 117 H 118 H Pulse Rate [ 117 H From Monitor] Respiratory 24 24 25 H Rate Blood Pressure 121/70 112/64 123/72 O2 Sat by Pulse 100 99 100 Oximetry 07/11/19 07/11/19 07/11/19 09:25 09:30 10:00 Temperature Pulse Rate 120 H 116 H 117 H Pulse Rate [ From Monitor] Respiratory 12 22 Rate Blood Pressure 131/80 131/81 O2 Sat by Pulse 100 100 Oximetry 07/11/19 07/11/19 07/11/19 10:30 11:00 11:30 Temperature Pulse Rate 120 H 121 H 121 H Pulse Rate [ From Monitor] Respiratory 19 19 19 Rate Blood Pressure 132/84 133/75 138/75 O2 Sat by Pulse 100 100 99 Oximetry 07/11/19 07/11/19 11:56 12:00 Temperature Pulse Rate 118 H 122 H Pulse Rate [ 119 H From Monitor] Respiratory 25 H 28 H Rate Blood Pressure 139/78 143/83 O2 Sat by Pulse 99 96 Oximetry - Labs CBC & Chem 7: 07/12/19 04:46 07/12/19 04:46 Labs: Abnormal lab results 07/10/19 07/11/19 07/11/19 Range/Units 17:25 00:07 05:14 ABG Hemoglobin (14.0-18.0) gm/dl Chloride 108.0 H (98-107) mmol/L BUN 26 H (9-20) mg/dL Creatinine 0.4 L (0.8-1.5) mg/dL Glucose 110 H (75-100) mg/dL POC Glucose 113 H 121 H (70-105) 07/11/19 07/11/19 Range/Units 05:25 12:27 ABG Hemoglobin 5.8 L (14.0-18.0) gm/dl Chloride (98-107) mmol/L BUN (9-20) mg/dL Creatinine (0.8-1.5) mg/dL Glucose (75-100) mg/dL POC Glucose 158 H (70-105)
--- NOTE | 2019-07-11 12:57 | Progress Note ---
Assessment and Plan 1. Hypoantremia: Suspect SIADH. Sodium level has improved. Monitor Sodium level. 2. FEN: Metabolic acidosis, improved, monitor. Hypokalemia, replete K, monitor. Monitor volume status and lytes. 3. Acute hypoxic respiratory failure: Currently intubated and on vent. Pulmonary following. 4. Severe Sepsis, POA. Followed by ID. 5. Severe COVID-19 pneumonia. 6. Shock: Off pressors. BP is better. 7. Microcytic anemia, POA: Monitor. 8. Diabetes mellitus. 9. COPD. 10. Encephalopathy, POA: Metabolic. - Subjective history: Patient was only seen from outside the glass door to prevent exposure to COVID- 19. Also the PPE is either not available or very limited. - General Appearance General appearance: intubated on ventilator HEENT: not examined Neck: not examined Respiratory: not examined Heart: not examined Gastrointestinal: not examined Integumentary: not examined Neurologic: not examined Ext: not examined Subjective Date of service: 07/11/19 Principal diagnosis: Bilateral pneumonia, severe sepsis with septic shock, encephalopathy Objective - Vital Signs Vital signs: Vital Signs - 12hr 07/11/19 07/11/19 07/11/19 01:00 01:30 02:01 Temperature Pulse Rate 127 H 126 H 128 H Pulse Rate [ From Monitor] Respiratory 26 H 25 H 25 H Rate Blood Pressure 138/70 136/72 136/68 O2 Sat by Pulse 99 99 99 Oximetry 07/11/19 07/11/19 07/11/19 02:30 03:01 03:31 Temperature Pulse Rate 131 H 132 H 131 H Pulse Rate [ From Monitor] Respiratory 27 H 27 H 27 H Rate Blood Pressure 133/73 134/73 132/69 O2 Sat by Pulse 100 100 100 Oximetry 07/11/19 07/11/19 07/11/19 04:00 04:30 05:01 Temperature 100.1 F H Pulse Rate 132 H 135 H 141 H Pulse Rate [ 118 H From Monitor] Respiratory 28 H 22 22 Rate Blood Pressure 139/73 146/77 126/70 O2 Sat by Pulse 100 99 97 Oximetry 07/11/19 07/11/19 07/11/19 05:30 05:33 06:00 Temperature Pulse Rate 123 H 122 H 119 H Pulse Rate [ From Monitor] Respiratory 25 H 25 H Rate Blood Pressure 112/66 112/66 112/64 O2 Sat by Pulse 100 100 100 Oximetry 07/11/19 07/11/19 07/11/19 06:30 07:00 07:30 Temperature Pulse Rate 122 H 120 H 118 H Pulse Rate [ From Monitor] Respiratory 20 24 25 H Rate Blood Pressure 114/63 112/68 119/67 O2 Sat by Pulse 100 100 100 Oximetry 07/11/19 07/11/19 07/11/19 08:00 08:30 09:00 Temperature 98.1 F Pulse Rate 117 H 117 H 118 H Pulse Rate [ 117 H From Monitor] Respiratory 24 24 25 H Rate Blood Pressure 121/70 112/64 123/72 O2 Sat by Pulse 100 99 100 Oximetry 07/11/19 07/11/19 07/11/19 09:25 09:30 10:00 Temperature Pulse Rate 120 H 116 H 117 H Pulse Rate [ From Monitor] Respiratory 12 22 Rate Blood Pressure 131/80 131/81 O2 Sat by Pulse 100 100 Oximetry 07/11/19 07/11/19 07/11/19 10:30 11:00 11:30 Temperature Pulse Rate 120 H 121 H 121 H Pulse Rate [ From Monitor] Respiratory 19 19 19 Rate Blood Pressure 132/84 133/75 138/75 O2 Sat by Pulse 100 100 99 Oximetry 07/11/19 07/11/19 11:56 12:00 Temperature Pulse Rate 118 H 122 H Pulse Rate [ 119 H From Monitor] Respiratory 25 H 28 H Rate Blood Pressure 139/78 143/83 O2 Sat by Pulse 99 96 Oximetry - Lab 07/09/19 04:30 07/11/19 05:14 Most recent lab results ABG pH 7.442 pH Units (7.350-7.450) 07/11/19 05:25 ABG pCO2 39.0 mm Hg 07/11/19 05:25 ABG pO2 83.6 mm Hg (80.0-90.0) 07/11/19 05:25 ABG HCO3 26.0 mmol/L (20.0-26.0) 07/11/19 05:25 ABG O2 Saturation 97.0 % (95.0-99.0) 07/11/19 05:25 Calcium 9.0 mg/dL (8.4-10.2) 07/11/19 05:14 Phosphorus 3.60 mg/dL (2.5-4.5) 07/05/19 04:00 Magnesium 1.80 mg/dL (1.7-2.3) 07/11/19 05:14 Medications & Allergies - Medications Allergies/Adverse Reactions: Allergies No Known Allergies Allergy (Unverified 09/09/16 16:29) Home Medications: Home Medications Medication Instructions Recorded Confirmed Last Taken Type Acetaminophen [Tylenol] 500 mg PO TID 07/04/19 07/04/19 Unknown History Albuterol Sulfate [Proair 90 mcg IH TID 07/04/19 07/04/19 Unknown History Digihaler] Amlodipine Besylate [Norvasc] 2.5 mg PO QDAY 07/04/19 07/04/19 Unknown History Aspirin [Aspirin BABY CHEW TAB] 81 mg PO QDAY 07/04/19 07/04/19 Unknown History Atorvastatin Calcium [Lipitor] 80 mg PO QDAY 07/04/19 07/04/19 Unknown History Benztropine Mesylate 0.5 mg PO QDAY 07/04/19 07/04/19 Unknown History Budesonide/Formoterol Fumarate 10.2 gm IH BID 07/04/19 07/04/19 Unknown History [Budesonide-Formoterol 160-4.5] Divalproex ER [DepaKOTE ER] 1,000 mg PO QDAY 07/04/19 07/04/19 Unknown History Docusate Sodium [Colace] 100 mg PO QDAY 07/04/19 07/04/19 Unknown History Folic Acid [Folvite] 1 mg PO QDAY 07/04/19 07/04/19 Unknown History Hydrophilic Ointment [Dermafix] 113 gm TP QDAY 07/04/19 07/04/19 Unknown History Losartan [Cozaar] 100 mg PO QDAY 07/04/19 07/04/19 Unknown History Metformin HCl [Metformin HCl ER] 500 mg PO QDAY 07/04/19 07/04/19 Unknown History Metoprolol Tartrate 25 mg PO BID 07/04/19 07/04/19 Unknown History Multivit with Minerals/Ginseng 1 each PO QDAY 07/04/19 07/04/19 Unknown History [Super Ginseng Multivit Cap] Quetiapine Fumarate [SEROquel Xr] 400 mg PO QHS 07/04/19 07/04/19 Unknown History Sertraline HCl [Zoloft] 100 mg PO QDAY 07/04/19 07/04/19 Unknown History Sildenafil Citrate [Viagra] 100 mg PO QDAY PRN 07/04/19 07/04/19 Unknown History Tamsulosin [Flomax] 0.4 mg PO QDAY 07/04/19 07/04/19 Unknown History Active Medications: Generic Name Dose Route Start Last Admin Trade Name Freq PRN Reason Stop Dose Admin Acetaminophen 650 mg 07/04/19 04:24 Tylenol UT Q6H PRN Pain MILD(1-3)/Fever >100.5/MURO Acetaminophen 650 mg 07/10/19 04:00 07/11/19 04:16 Tylenol PO 650 mg Q6HR PRN Administration Pain, Mild (1-3) FEVER Lipase/Protease/Amylase 1 each 07/04/19 10:[address] 10,500 Unit FEEDTUBE PRN PRN For Clogged Feeding Tube Aspirin 81 mg 07/05/19 10:00 07/11/19 11:12 Baby Aspirin PO 81 mg QDAY TAMMIE Administration Dextrose 50 ml 07/04/19 06:54 D50w (25gm) Syringe IV Q30MIN PRN Hypoglycemia Protocol Docusate Sodium 100 mg 07/10/19 10:00 07/11/19 11:12 Colace PO 100 mg BID TAMMIE Administration Famotidine 20 mg 07/10/19 10:00 07/11/19 11:13 Pepcid PO 20 mg BID TAMMIE Administration Folic Acid 1 mg 07/05/19 10:00 07/11/19 11:12 Folvite PO 1 mg QDAY TAMMIE Administration Hydrophilic Ointment 1 applic 07/03/19 19:56 07/05/19 17:42 Vaseline Lip Therapy TP 1 applic Q2HR PRN Administration Dry Lips Norepinephrine 4 mg in 250 mls @ 7.5 mls/hr 07/03/19 23:00 07/07/19 10:15 Levophed Drip 4 Mg/Ns 250 Ml IV 0 mcg/min TITR TAMMIE 0 mls/hr Titration Protocol 2 MCG/MIN Magnesium Sulfate 2 gm in 50 mls @ 25 mls/hr 07/11/19 11:00 07/11/19 11:13 Magnesium Sulfate 2gm/50ml IV 07/11/19 12:59 25 mls/hr ONCE ONE Administration Insulin Human Lispro 0 unit 07/07/19 12:00 07/11/19 10:14 Humalog SUB-Q Not Given Q6HR TAMMIE Protocol Levetiracetam 750 mg 07/06/19 11:00 07/11/19 11:12 Keppra FEEDTUBE 750 mg Q12HR TAMMIE Administration Morphine Sulfate 2 mg 07/04/19 04:24 07/11/19 04:38 Morphine IV 2 mg Q4H PRN Administration Pain, Moderate (4-6) Multi-Ingred Cream/Lotion/Oil/Oint 1 applic 07/03/19 19:56 07/05/19 13:19 Artificial Tears Ophth Oint OU 1 applic Q4HR PRN Administration Dry Eye(s) Naloxone HCl 0.1 mg 07/04/19 04:24 Naloxone IV Q2MIN PRN Res Rate </= 8 or 02 SAT < 92% Scopolamine 1 each 07/10/19 11:00 07/10/19 17:08 Transderm-Scop TD 1 each Q3D TAMMIE Administration Simple Syrup 15 ml 07/04/19 10:04 07/10/19 21:56 Simple Syrup FEEDTUBE 15 ml PRN PRN Administration Hypoglycemia Simple Syrup 30 ml 07/04/19 10:04 Simple Syrup FEEDTUBE PRN PRN Hypoglycemia Sodium Bicarbonate 325 mg 07/04/19 10:04 Sodium Bicarbonate FEEDTUBE PRN PRN For Clogged Feeding Tube Sodium Chloride 10 ml 07/04/19 10:00 07/11/19 11:13 Sodium Chloride Flush Syringe 10 Ml IV 10 ml BID TAMMIE Administration Sodium Chloride 10 ml 07/04/19 04:24 Sodium Chloride Flush Syringe 10 Ml IV PRN PRN LINE FLUSH Sodium Hypochlorite 1 applic 07/10/19 14:00 07/11/19 11:30 Dakin's Half Strength TP 1 applicatio BID TAMMIE Administration
[2019-07-12] MEDS: INSULIN LISPRO 100 UNIT/ML SUB-Q SCH ×4 (00:14→18:22)
[2019-07-12] MEDS: MORPHINE 2 MG/1 ML INJ IV PRN ×3 (02:56→14:41)
[2019-07-12 05:23] LABS: Hematocrit 20.8 % (35.5-45.6); Hemoglobin 6.7 gm/dl (11.8-15.2); Mean Corpuscular HGB Conc 32 % (32-34); Mean Corpuscular Volume 83 fl (84-94); Platelet Count 218 K/mm3 (140-440); Red Blood Count 2.51 M/mm3 (3.65-5.03)
[2019-07-12 05:26] LABS: Red Cell Distribution Width 20.3 % (13.2-15.2)
[2019-07-12 05:34] LABS: BUN/Creatinine Ratio 63; Blood Urea Nitrogen 25 mg/dL (9-20); Calcium 8.9 mg/dL (8.4-10.2); Hemolysis Index 4
[2019-07-12 06:12] LABS: Basophils % (Manual) 0 % (0.0-1.8); Eosinophils % (Manual) 0 % (0.0-4.3); Total Cells Counted 100
[2019-07-12 06:13] LABS: Hypochromasia 2+; Ovalocytes Few; Platelet Estimate Consistent w Auto; Spherocytes Few
[2019-07-12] MEDS: SODIUM BICARBONATE 650 MG TAB PO SCH (08:00)
[2019-07-12] MEDS ORDERED: SODIUM CHLORIDE 0.9% 500 ML 500 ML IV NR (08:16)
--- NOTE | 2019-07-12 09:53 | Progress Note ---
Assessment and Plan 1. Hypoantremia: Suspect SIADH. Sodium level has improved. Monitor Sodium level. 2. FEN: Metabolic acidosis, improved, monitor. Hypokalemia, K level is better, monitor. Monitor volume status and lytes. 3. Acute hypoxic respiratory failure: Currently intubated and on vent. Pulmonary following. 4. Severe Sepsis, POA. Followed by ID. 5. Severe COVID-19 pneumonia. 6. Shock: Off pressors. BP is better. 7. Microcytic anemia, POA: Monitor. 8. Diabetes mellitus. 9. COPD. 10. Encephalopathy, POA: Metabolic. - Subjective history: Patient was only seen from outside the glass door to prevent exposure to COVID- 19. Also the PPE is either not available or very limited. - General Appearance General appearance: intubated on ventilator HEENT: not examined Neck: not examined Respiratory: not examined Heart: not examined Gastrointestinal: not examined Integumentary: not examined Neurologic: not examined Ext: not examined Subjective Date of service: 07/12/19 Principal diagnosis: Bilateral pneumonia, severe sepsis with septic shock, encephalopathy Objective - Vital Signs Vital signs: Vital Signs - 12hr 07/11/19 07/11/19 07/11/19 22:00 22:30 23:00 Temperature Pulse Rate 132 H 134 H 133 H Pulse Rate [ From Monitor] Respiratory 26 H 27 H 27 H Rate Blood Pressure 150/78 150/84 150/78 O2 Sat by Pulse 95 97 95 Oximetry 07/11/19 07/12/19 07/12/19 23:30 00:00 00:01 Temperature 98.6 F Pulse Rate 136 H 131 H 132 H Pulse Rate [ From Monitor] Respiratory 27 H 25 H Rate Blood Pressure 153/77 147/80 147/80 O2 Sat by Pulse 94 97 95 Oximetry 07/12/19 07/12/19 07/12/19 00:07 00:31 01:01 Temperature Pulse Rate 133 H 132 H 133 H Pulse Rate [ From Monitor] Respiratory 25 H 27 H 25 H Rate Blood Pressure 147/80 161/74 160/73 O2 Sat by Pulse 96 96 95 Oximetry 07/12/19 07/12/19 07/12/19 01:30 02:01 02:31 Temperature Pulse Rate 135 H 140 H 143 H Pulse Rate [ From Monitor] Respiratory 25 H 28 H 36 H Rate Blood Pressure 146/82 133/79 185/131 O2 Sat by Pulse 94 93 98 Oximetry 07/12/19 07/12/19 07/12/19 03:00 03:30 04:00 Temperature 98.2 F Pulse Rate 140 H 135 H 132 H Pulse Rate [ From Monitor] Respiratory 24 25 H 25 H Rate Blood Pressure 139/75 139/73 140/74 O2 Sat by Pulse 92 96 95 Oximetry 07/12/19 07/12/19 07/12/19 04:31 04:34 05:01 Temperature Pulse Rate 135 H 135 H 136 H Pulse Rate [ From Monitor] Respiratory 26 H 27 H Rate Blood Pressure 141/72 141/72 143/74 O2 Sat by Pulse 94 96 95 Oximetry 07/12/19 07/12/19 07/12/19 05:30 06:00 06:30 Temperature Pulse Rate 135 H 131 H 132 H Pulse Rate [ From Monitor] Respiratory 27 H 25 H 25 H Rate Blood Pressure 139/74 137/78 137/76 O2 Sat by Pulse 95 94 96 Oximetry 07/12/19 07/12/19 07/12/19 07:00 07:31 08:00 Temperature Pulse Rate 132 H 136 H 135 H Pulse Rate [ 135 H From Monitor] Respiratory 25 H 28 H 28 H Rate Blood Pressure 134/75 138/77 O2 Sat by Pulse 96 95 97 Oximetry 07/12/19 07/12/19 08:01 09:09 Temperature Pulse Rate 136 H 137 H Pulse Rate [ From Monitor] Respiratory 28 H Rate Blood Pressure 140/80 130/75 O2 Sat by Pulse 96 97 Oximetry - Lab 07/12/19 04:46 07/12/19 04:46 Most recent lab results ABG pH 7.442 pH Units (7.350-7.450) 07/11/19 05:25 ABG pCO2 39.0 mm Hg 07/11/19 05:25 ABG pO2 83.6 mm Hg (80.0-90.0) 07/11/19 05:25 ABG HCO3 26.0 mmol/L (20.0-26.0) 07/11/19 05:25 ABG O2 Saturation 97.0 % (95.0-99.0) 07/11/19 05:25 Calcium 8.9 mg/dL (8.4-10.2) 07/12/19 04:46 Phosphorus 3.60 mg/dL (2.5-4.5) 07/05/19 04:00 Magnesium 1.80 mg/dL (1.7-2.3) 07/11/19 05:14 Medications & Allergies - Medications Allergies/Adverse Reactions: Allergies No Known Allergies Allergy (Unverified 09/09/16 16:29) Home Medications: Home Medications Medication Instructions Recorded Confirmed Last Taken Type Acetaminophen [Tylenol] 500 mg PO TID 07/04/19 07/04/19 Unknown History Albuterol Sulfate [Proair 90 mcg IH TID 07/04/19 07/04/19 Unknown History Digihaler] Amlodipine Besylate [Norvasc] 2.5 mg PO QDAY 07/04/19 07/04/19 Unknown History Aspirin [Aspirin BABY CHEW TAB] 81 mg PO QDAY 07/04/19 07/04/19 Unknown History Atorvastatin Calcium [Lipitor] 80 mg PO QDAY 07/04/19 07/04/19 Unknown History Benztropine Mesylate 0.5 mg PO QDAY 07/04/19 07/04/19 Unknown History Budesonide/Formoterol Fumarate 10.2 gm IH BID 07/04/19 07/04/19 Unknown History [Budesonide-Formoterol 160-4.5] Divalproex ER [DepaKOTE ER] 1,000 mg PO QDAY 07/04/19 07/04/19 Unknown History Docusate Sodium [Colace] 100 mg PO QDAY 07/04/19 07/04/19 Unknown History Folic Acid [Folvite] 1 mg PO QDAY 07/04/19 07/04/19 Unknown History Hydrophilic Ointment [Dermafix] 113 gm TP QDAY 07/04/19 07/04/19 Unknown History Losartan [Cozaar] 100 mg PO QDAY 07/04/19 07/04/19 Unknown History Metformin HCl [Metformin HCl ER] 500 mg PO QDAY 07/04/19 07/04/19 Unknown History Metoprolol Tartrate 25 mg PO BID 07/04/19 07/04/19 Unknown History Multivit with Minerals/Ginseng 1 each PO QDAY 07/04/19 07/04/19 Unknown History [Super Ginseng Multivit Cap] Quetiapine Fumarate [SEROquel Xr] 400 mg PO QHS 07/04/19 07/04/19 Unknown History Sertraline HCl [Zoloft] 100 mg PO QDAY 07/04/19 07/04/19 Unknown History Sildenafil Citrate [Viagra] 100 mg PO QDAY PRN 07/04/19 07/04/19 Unknown History Tamsulosin [Flomax] 0.4 mg PO QDAY 07/04/19 07/04/19 Unknown History Active Medications: Generic Name Dose Route Start Last Admin Trade Name Freq PRN Reason Stop Dose Admin Acetaminophen 650 mg 07/04/19 04:24 Tylenol AR Q6H PRN Pain MILD(1-3)/Fever >100.5/MURO Acetaminophen 650 mg 07/10/19 04:00 07/11/19 04:16 Tylenol PO 650 mg Q6HR PRN Administration Pain, Mild (1-3) FEVER Lipase/Protease/Amylase 1 each 07/04/19 10:[address] 10,500 Unit FEEDTUBE PRN PRN For Clogged Feeding Tube Aspirin 81 mg 07/05/19 10:00 07/11/19 11:12 Baby Aspirin PO 81 mg QDAY TAMMIE Administration Dextrose 50 ml 07/04/19 06:54 D50w (25gm) Syringe IV Q30MIN PRN Hypoglycemia Protocol Docusate Sodium 100 mg 07/10/19 10:00 07/11/19 21:12 Colace PO 100 mg BID TAMMIE Administration Famotidine 20 mg 07/10/19 10:00 07/11/19 21:12 Pepcid PO 20 mg BID TAMMIE Administration Folic Acid 1 mg 07/05/19 10:00 07/11/19 11:12 Folvite PO 1 mg QDAY TAMMIE Administration Hydrophilic Ointment 1 applic 07/03/19 19:56 07/05/19 17:42 Vaseline Lip Therapy TP 1 applic Q2HR PRN Administration Dry Lips Norepinephrine 4 mg in 250 mls @ 7.5 mls/hr 07/03/19 23:00 07/07/19 10:15 Levophed Drip 4 Mg/Ns 250 Ml IV 0 mcg/min TITR TAMMIE 0 mls/hr Titration Protocol 2 MCG/MIN Sodium Chloride 500 mls @ 0 mls/hr 07/12/19 08:16 Nacl 0.9% 500 Ml IV 07/13/19 08:15 ONCE NR As Directed Insulin Human Lispro 0 unit 07/07/19 12:00 07/12/19 05:48 Humalog SUB-Q Not Given Q6HR TAMMIE Protocol Levetiracetam 750 mg 07/06/19 11:00 07/11/19 21:12 Keppra FEEDTUBE 750 mg Q12HR TAMMIE Administration Morphine Sulfate 2 mg 07/04/19 04:24 07/12/19 02:56 Morphine IV 2 mg Q4H PRN Administration Pain, Moderate (4-6) Multi-Ingred Cream/Lotion/Oil/Oint 1 applic 07/03/19 19:56 07/05/19 13:19 Artificial Tears Ophth Oint OU 1 applic Q4HR PRN Administration Dry Eye(s) Naloxone HCl 0.1 mg 07/04/19 04:24 Naloxone IV Q2MIN PRN Res Rate </= 8 or 02 SAT < 92% Scopolamine 1 each 07/10/19 11:00 07/10/19 17:08 Transderm-Scop TD 1 each Q3D TAMMIE Administration Simple Syrup 15 ml 07/04/19 10:04 07/10/19 21:56 Simple Syrup FEEDTUBE 15 ml PRN PRN Administration Hypoglycemia Simple Syrup 30 ml 07/04/19 10:04 Simple Syrup FEEDTUBE PRN PRN Hypoglycemia Sodium Bicarbonate 325 mg 07/04/19 10:04 Sodium Bicarbonate FEEDTUBE PRN PRN For Clogged Feeding Tube Sodium Chloride 10 ml 07/04/19 10:00 07/11/19 21:14 Sodium Chloride Flush Syringe 10 Ml IV 10 ml BID TAMMIE Administration Sodium Chloride 10 ml 07/04/19 04:24 Sodium Chloride Flush Syringe 10 Ml IV PRN PRN LINE FLUSH Sodium Hypochlorite 1 applic 07/10/19 14:00 07/11/19 21:13 Dakin's Half Strength TP 1 applicatio BID TAMMIE Administration
[2019-07-12] MEDS: levETIRAcetam 500 MG/5 ML ORAL LIQD FEEDTUBE SCH ×2 (09:54→21:50)
[2019-07-12] MEDS: FAMOTIDINE 20 MG TAB PO SCH ×2 (09:54→21:49)
[2019-07-12] MEDS: ASPIRIN 81 MG TAB CHEW PO SCH (09:54)
[2019-07-12] MEDS: DOCUSATE SODIUM 100 MG/10 ML ORAL LIQD PO SCH ×2 (09:54→21:49)
[2019-07-12] MEDS: FOLIC ACID 1 MG TAB PO SCH (09:55)
[2019-07-12] MEDS: SODIUM HYPOCHLORITE, DAKIN'S 1/2 STRENGTH (0.25%) 473 ML TOPICAL SOLN TP SCH (10:13)
--- NOTE | 2019-07-12 11:52 | Progress Note ---
Assessment and Plan Cultures: 07/03/2019 urine culture: No growth 07/03/2019 Tracheal aspirate: E.coli A/P: 69-year-old male with CVA, hypertension, dementia, schizophrenia, alcohol use disorder was admitted to the emergency room after being brought in by EMS with progressive shortness of breath and unresponsiveness. He was noted to have agonal breathing and a faint pulse requiring CPR. It seems patient was on hospice recently. #Shock, likely septic: Lactic acidosis. Remains off pressors. #Severe COVID-19 disease and pneumonia: Elevated markers. Completed Plaquenil. Completed Ceftriaxone for treatment E.coli in tracheal aspirate. #Acute respiratory failure: on mechanical ventilation. #Transaminitis: Likely from COVID-19, shock #Leucocytosis: ?reactive from above. Recs: Remains afebrile, continue off antibiotics continue supportive care for COVID-19 Yanna Calzada MD, FACP [facility] ([facility] C: [phone] O: [phone] F: [phone] Subjective Date of service: 07/12/19 Principal diagnosis: Bilateral pneumonia, severe sepsis with septic shock, encephalopathy Interval history: No fever. Remains intubated, on the vent. Remains off pressors. Sedated. Agitation at times per RN. Objective - Exam Narrative Exam: Physical Exam (reviewed in chart due to PPE conservation) Constitutional: intubated, sedated, on the vent Head, Ears, Nose: normocephalic, atraumatic Eyes: limited due to PPE conservation strategy Neck: intubated Oral: intubated Cardiovascular: limited due to PPE conservation strategy Respiratory: limited due to PPE conservation strategy GI: limited due to PPE conservation strategy Musculoskeletal: limited due to PPE conservation strategy Skin: limited due to PPE conservation strategy Hem/Lymphatic: limited due to PPE conservation strategy Psych: no agitation Neurological: sedated, intubated, on the vent, exam limited - Constitutional Vitals: Vital Signs Temp Pulse Resp BP Pulse Ox 98.8 F 131 H 25 H 133/71 99 07/12/19 11:22 07/12/19 11:49 07/12/19 11:22 07/12/19 11:22 07/12/19 11:22 Temperature -Last 24 Hours Temperature 98.8 F Temperature 98.7 F Temperature 98.2 F Temperature 98.3 F Temperature 98.6 F Temperature 97.8 F Temperature 98.0 F - Labs CBC & Chem 7: 07/12/19 04:46 07/12/19 04:46 Labs: Abnormal lab results 07/11/19 07/11/19 07/11/19 Range/Units 12:27 18:00 23:42 WBC (4.5-11.0) K/mm3 RBC (3.65-5.03) M/mm3 Hgb (11.8-15.2) gm/dl Hct (35.5-45.6) % MCV (84-94) fl MCH (28-32) pg RDW (13.2-15.2) % Seg Neuts % (Manual) (40.0-70.0) % Lymphocytes % (Manual) (13.4-35.0) % Seg Neutrophils # Man (1.8-7.7) K/mm3 Lymphocytes # (Manual) (1.2-5.4) K/mm3 Chloride (98-107) mmol/L BUN (9-20) mg/dL Creatinine (0.8-1.5) mg/dL Glucose (75-100) mg/dL POC Glucose 158 H 141 H 142 H (70-105) Crossmatch 07/12/19 07/12/19 07/12/19 Range/Units 04:46 04:46 05:23 WBC 23.6 H (4.5-11.0) K/mm3 RBC 2.51 L (3.65-5.03) M/mm3 Hgb 6.7 L (11.8-15.2) gm/dl Hct 20.8 L (35.5-45.6) % MCV 83 L (84-94) fl MCH 27 L (28-32) pg RDW 20.3 H (13.2-15.2) % Seg Neuts % (Manual) 94.0 H (40.0-70.0) % Lymphocytes % (Manual) 4.0 L (13.4-35.0) % Seg Neutrophils # Man 22.2 H (1.8-7.7) K/mm3 Lymphocytes # (Manual) 0.9 L (1.2-5.4) K/mm3 Chloride 107.1 H (98-107) mmol/L BUN 25 H (9-20) mg/dL Creatinine 0.4 L (0.8-1.5) mg/dL Glucose 122 H (75-100) mg/dL POC Glucose 118 H (70-105) Crossmatch 07/12/19 07/12/19 Range/Units 08:49 11:36 WBC (4.5-11.0) K/mm3 RBC (3.65-5.03) M/mm3 Hgb (11.8-15.2) gm/dl Hct (35.5-45.6) % MCV (84-94) fl MCH (28-32) pg RDW (13.2-15.2) % Seg Neuts % (Manual) (40.0-70.0) % Lymphocytes % (Manual) (13.4-35.0) % Seg Neutrophils # Man (1.8-7.7) K/mm3 Lymphocytes # (Manual) (1.2-5.4) K/mm3 Chloride (98-107) mmol/L BUN (9-20) mg/dL Creatinine (0.8-1.5) mg/dL Glucose (75-100) mg/dL POC Glucose 124 H (70-105) Crossmatch See Detail
--- NOTE | 2019-07-12 13:19 | Progress Note ---
Assessment and Plan COVid positive- Acute respiratory Failure with Hypoxia - Due to bilateral PNA with COVID 19 infection. -pulmonary critical care following -Continue scheduled labs, mechanical ventilation, supportive care as needed -Completed bacteremia Bilateral PNA with severe sepsis - see above -ID following, completed Plaquenil and cefepime Acute metabolic encephalopathy -Likely due to respiratory arrest and severe sepsis - Hold Hyoscamine. monitor Troponins. -CT head unremarkable Shock, likely septic: Lactic acidosis -Levophed as needed, continue IV fluid COPD with exacerbation -Likely due to COVID-19 pneumonia -Continue scheduled nebs Anemia, Microcytic - check iron, TIBC - monitor H&H, transfuse one unit Pressure Ulcers - buttocks, right lateral foot area - present upon admission - wound care consulted Hyponatremia, continue IV fluid DM type 2 - Accuchecks with sliding scale insulin HTN Essential, now hypotensive -relatively low BP - on IVF. monitor Seizure D/o/CVA/immobility/BIpolar D/o/SCZ chronic medical conditions - continue meds Severe PCM, TF for now, dietary following patient is DNR- Called and verified information Guarded prognosis, patient is critically ill 07/04: COVID +ve, start on plaquinil, called no answer 07/05: transfuse one unit PRBC, Hb dropped to ~6, called and updated 07/06; H&H stable, serum chemistry improved. On mechanical ventilation with high inflammatory markers. Continue Plaquenil and empiric antibiotics. ID following, prognosis remains guarded and extremely poor. 07/07: On mechanical ventilation with high inflammatory markers. Continue Plaquenil and empiric antibiotics. ID following, prognosis remains guarded and extremely poor. 07/08: Called today and verified the CODE STATUS. Patient remains DNR. He is still intubated, with poor prognosis. Continue to follow inflammatory markers. 07/09 wean off from vent as tolerated, completed empiric antibiotic and Plaquenil 07/10 wean off from vent as tolerated. poor prognosis 07/11 hb 6.7 today, transfuse one PRBC. wean off from vent as tolerated. poor prognosis The high probability of a clinically significant, sudden or life threatening deterioration of the [respiratory, CVS, [employer]] system(s) required my full and direct attention, intervention and personal management. The aggregate critical care time was [32] minutes. This time is in addition to time spent performing reported procedures but includes the following: [x] Data Review and interpretation [x] Patient assessment and monitoring of vital signs [x] Documentation [x] Medication orders and management Brief History: 69-year-old male with PMH of CVA with RHP, HTN, DM2, SCZ, Dementia, Alcohol use D/o, Seizure D/O, presents to the emergency department via EMS from home with progressive SOB and impending espiratory failure with an unresponsive episode. Apparently the patient was witnessed becoming unresponsive by family members. Reportedly, pt had just gotten a high dose of Hyoscamine When EMS got there, the patient was agonal breathing and had a faint pulse. No CPR was indicated per EMS. PT was intubated and received some IV fluid en route to the hospital. He is COVID19 positive. Patient now being managed sepsis, b/l PNA, acute respiratory failure. Subjective Date of service: 07/12/19 Principal diagnosis: Bilateral pneumonia, severe sepsis with septic shock, encephalopathy Interval history: Patient seen and examined. Medical records and medication list reviewed. No acute event overnight noted by the RN. Patient is positive for COVID-19. Patient remains intubated on mechanical vent ilation Hb 6.7 today Discussed plan of care at bedside with patient's RN. Objective - Exam Narrative Exam: General appearance: sedated on ventilator, intubated, other (emaciated) EENT: ATNC, other (pupils equal) Neck: Present: trachea midline Respiratory: Clear to Ascultation Heart: regular, S1S2, no murmurs Gastrointestinal: Present: normoactive bowel sounds, other (PEG tube noted). Absent: tenderness Integumentary: ulcer (both feet) Neurologic: other (not responding) Musculoskeletal: Present: other (trace ankle edema) - Constitutional Vitals: Vital Signs - 12hr 07/12/19 07/12/19 07/12/19 01:30 02:01 02:31 Temperature Pulse Rate 135 H 140 H 143 H Pulse Rate [ From Monitor] Respiratory 25 H 28 H 36 H Rate Blood Pressure 146/82 133/79 185/131 O2 Sat by Pulse 94 93 98 Oximetry 07/12/19 07/12/19 07/12/19 03:00 03:30 04:00 Temperature 98.2 F Pulse Rate 140 H 135 H 132 H Pulse Rate [ From Monitor] Respiratory 24 25 H 25 H Rate Blood Pressure 139/75 139/73 140/74 O2 Sat by Pulse 92 96 95 Oximetry 07/12/19 07/12/19 07/12/19 04:31 04:34 05:01 Temperature Pulse Rate 135 H 135 H 136 H Pulse Rate [ From Monitor] Respiratory 26 H 27 H Rate Blood Pressure 141/72 141/72 143/74 O2 Sat by Pulse 94 96 95 Oximetry 07/12/19 07/12/19 07/12/19 05:30 06:00 06:30 Temperature Pulse Rate 135 H 131 H 132 H Pulse Rate [ From Monitor] Respiratory 27 H 25 H 25 H Rate Blood Pressure 139/74 137/78 137/76 O2 Sat by Pulse 95 94 96 Oximetry 07/12/19 07/12/19 07/12/19 07:00 07:31 08:00 Temperature 97.8 F Pulse Rate 132 H 136 H 135 H Pulse Rate [ 135 H From Monitor] Respiratory 25 H 28 H 28 H Rate Blood Pressure 134/75 138/77 O2 Sat by Pulse 96 95 97 Oximetry 07/12/19 07/12/19 07/12/19 08:01 08:30 09:00 Temperature Pulse Rate 136 H 134 H 137 H Pulse Rate [ From Monitor] Respiratory 28 H 27 H 28 H Rate Blood Pressure 140/80 137/75 130/75 O2 Sat by Pulse 96 94 97 Oximetry 07/12/19 07/12/19 07/12/19 09:09 09:31 10:01 Temperature Pulse Rate 137 H 139 H 139 H Pulse Rate [ From Monitor] Respiratory 24 24 Rate Blood Pressure 130/75 153/75 143/74 O2 Sat by Pulse 97 94 96 Oximetry 07/12/19 07/12/19 07/12/19 10:30 10:41 10:51 Temperature Pulse Rate 133 H 133 H 133 H Pulse Rate [ From Monitor] Respiratory 25 H 25 H 25 H Rate Blood Pressure 128/71 128/71 130/71 O2 Sat by Pulse 96 97 98 Oximetry 07/12/19 07/12/19 07/12/19 11:00 11:07 11:22 Temperature 98.7 F 98.8 F Pulse Rate 133 H 133 H 132 H Pulse Rate [ From Monitor] Respiratory 25 H 25 H 25 H Rate Blood Pressure 130/71 124/67 133/71 O2 Sat by Pulse 98 97 99 Oximetry 07/12/19 07/12/19 07/12/19 11:30 11:49 11:50 Temperature Pulse Rate 134 H 131 H Pulse Rate [ 131 H From Monitor] Respiratory 25 H 25 H Rate Blood Pressure 132/70 O2 Sat by Pulse 97 99 Oximetry 07/12/19 07/12/19 07/12/19 11:52 11:59 12:00 Temperature 98.3 F 98.8 F Pulse Rate 131 H 131 H Pulse Rate [ From Monitor] Respiratory 25 H 25 H Rate Blood Pressure 130/69 132/74 O2 Sat by Pulse 99 98 Oximetry 07/12/19 07/12/19 07/12/19 12:22 12:30 12:52 Temperature 98.4 F 98.5 F Pulse Rate 129 H 131 H 131 H Pulse Rate [ From Monitor] Respiratory 27 H 25 H 26 H Rate Blood Pressure 129/72 133/68 131/77 O2 Sat by Pulse 99 97 99 Oximetry 07/12/19 13:01 Temperature 98.6 F Pulse Rate 132 H Pulse Rate [ From Monitor] Respiratory 26 H Rate Blood Pressure 140/77 O2 Sat by Pulse 96 Oximetry - Labs CBC & Chem 7: 07/12/19 04:46 07/12/19 04:46 Labs: Abnormal lab results 07/11/19 07/11/19 07/12/19 Range/Units 18:00 23:42 04:46 WBC 23.6 H (4.5-11.0) K/mm3 RBC 2.51 L (3.65-5.03) M/mm3 Hgb 6.7 L (11.8-15.2) gm/dl Hct 20.8 L (35.5-45.6) % MCV 83 L (84-94) fl MCH 27 L (28-32) pg RDW 20.3 H (13.2-15.2) % Seg Neuts % (Manual) 94.0 H (40.0-70.0) % Lymphocytes % (Manual) 4.0 L (13.4-35.0) % Seg Neutrophils # Man 22.2 H (1.8-7.7) K/mm3 Lymphocytes # (Manual) 0.9 L (1.2-5.4) K/mm3 Chloride (98-107) mmol/L BUN (9-20) mg/dL Creatinine (0.8-1.5) mg/dL Glucose (75-100) mg/dL POC Glucose 141 H 142 H (70-105) Crossmatch 07/12/19 07/12/19 07/12/19 Range/Units 04:46 05:23 08:49 WBC (4.5-11.0) K/mm3 RBC (3.65-5.03) M/mm3 Hgb (11.8-15.2) gm/dl Hct (35.5-45.6) % MCV (84-94) fl MCH (28-32) pg RDW (13.2-15.2) % Seg Neuts % (Manual) (40.0-70.0) % Lymphocytes % (Manual) (13.4-35.0) % Seg Neutrophils # Man (1.8-7.7) K/mm3 Lymphocytes # (Manual) (1.2-5.4) K/mm3 Chloride 107.1 H (98-107) mmol/L BUN 25 H (9-20) mg/dL Creatinine 0.4 L (0.8-1.5) mg/dL Glucose 122 H (75-100) mg/dL POC Glucose 118 H (70-105) Crossmatch See Detail 07/12/19 Range/Units 11:36 WBC (4.5-11.0) K/mm3 RBC (3.65-5.03) M/mm3 Hgb (11.8-15.2) gm/dl Hct (35.5-45.6) % MCV (84-94) fl MCH (28-32) pg RDW (13.2-15.2) % Seg Neuts % (Manual) (40.0-70.0) % Lymphocytes % (Manual) (13.4-35.0) % Seg Neutrophils # Man (1.8-7.7) K/mm3 Lymphocytes # (Manual) (1.2-5.4) K/mm3 Chloride (98-107) mmol/L BUN (9-20) mg/dL Creatinine (0.8-1.5) mg/dL Glucose (75-100) mg/dL POC Glucose 124 H (70-105) Crossmatch
--- NOTE | 2019-07-12 13:42 | Progress Note ---
Assessment and Plan Acute hypoxemic respiratory failure on MVS Severe sepsis with Shock. Bilateral Pneumonia. PUI coronavirus-19 infection. Acute possibly on chronic encephalopathy. Oropharyngeal dysphagia. Anemia. Decubitus ulcers Diabetes type 2. Hypertension. Leukocytosis. Anemia that is microcytic. Elevated serum transaminases. [id number] metabolic acidosis. Lactic acidosis. Severe protein-calorie malnutrition - begin oral metoprolol 12.5mg bid re: tachycardia and hypertension - prn IV metoprolol for pulse > 130/min - begin fentanyl gtt for pain control - continue airborne and contact COVID-19 precautions - COVID-19 test positive - complete anti-infectives and de-escalate per ID recommendations - continue wound care per WCT - sedation prn for target RASS 0 to -1 - continue to wean supplemental oxygen for target O2 sat's > 90% acutely - Daily SAT's and SBT assessment as tolerated - VAP bundle addressed - continue lung protective strategies - continue bronchodilators with pulmonary hygiene per RT - wean per pulmonary driven protocols otherwise - accuchecks with glycemic control per SSI (While critically ill target blood glucose of 140-180 mg/dL; avoid hypoglycemia) - to avoid benzodiazepine's, reduce the possibility of delirium - prn analgesia per CPOT score - Maintenance of sleep-wake cycle, avoid delirium - continue enteral nutritional support at goal rate as tolerated - G.I. & VTE prophylaxis - PT/OT/ROM exercises - continue mobility protocols for pressure ulcer prophylaxis - Monitor hemodynamics closely - continue other care per attending / other consultants - discharge planning ongoing concurrently .... Re-evaluate in am & prn CONDITION: CRITICAL PROGNOSIS: GUARDED CODE STATUS: FULL CODE The high probability of a clinically significant, sudden or life-threatening deterioration of the [respiratory & cardiovascular] system(s) required my full and direct attention, intervention and personal management. The aggregate critical care time was [32] minutes without overlap. Time includes spent on; [x] Data Review and interpretation [x] Patient assessment and monitoring of vital signs [x] Documentation [x] Medication orders and management Subjective Date of service: 07/12/19 Principal diagnosis: Bilateral pneumonia, severe sepsis with septic shock, encephalopathy Interval history: Patient is seen today for: Ac hypoxemic Resp failure on MVS; Severe sepsis with Shock; Ivan. Pneumonia; PUI coronavirus-19 infection. Seen and examined at bedside; 24hour events reviewed; nursing and respiratory care staff consulted; no adverse overnight events reported to me; resting in bed; remains on MVS; restless; tachycardic; AMS is persistent; no hypotension; no fevers; no emesis or overt aspiration Objective Vital Signs - 12hr 07/12/19 07/12/19 07/12/19 02:01 02:31 03:00 Temperature Pulse Rate 140 H 143 H 140 H Pulse Rate [ From Monitor] Respiratory 28 H 36 H 24 Rate Blood Pressure 133/79 185/131 139/75 O2 Sat by Pulse 93 98 92 Oximetry 07/12/19 07/12/19 07/12/19 03:30 04:00 04:31 Temperature 98.2 F Pulse Rate 135 H 132 H 135 H Pulse Rate [ From Monitor] Respiratory 25 H 25 H 26 H Rate Blood Pressure 139/73 140/74 141/72 O2 Sat by Pulse 96 95 94 Oximetry 07/12/19 07/12/19 07/12/19 04:34 05:01 05:30 Temperature Pulse Rate 135 H 136 H 135 H Pulse Rate [ From Monitor] Respiratory 27 H 27 H Rate Blood Pressure 141/72 143/74 139/74 O2 Sat by Pulse 96 95 95 Oximetry 07/12/19 07/12/19 07/12/19 06:00 06:30 07:00 Temperature Pulse Rate 131 H 132 H 132 H Pulse Rate [ From Monitor] Respiratory 25 H 25 H 25 H Rate Blood Pressure 137/78 137/76 134/75 O2 Sat by Pulse 94 96 96 Oximetry 07/12/19 07/12/19 07/12/19 07:31 08:00 08:01 Temperature 97.8 F Pulse Rate 136 H 135 H 136 H Pulse Rate [ 135 H From Monitor] Respiratory 28 H 28 H 28 H Rate Blood Pressure 138/77 140/80 O2 Sat by Pulse 95 97 96 Oximetry 07/12/19 07/12/19 07/12/19 08:30 09:00 09:09 Temperature Pulse Rate 134 H 137 H 137 H Pulse Rate [ From Monitor] Respiratory 27 H 28 H Rate Blood Pressure 137/75 130/75 130/75 O2 Sat by Pulse 94 97 97 Oximetry 07/12/19 07/12/19 07/12/19 09:31 10:01 10:30 Temperature Pulse Rate 139 H 139 H 133 H Pulse Rate [ From Monitor] Respiratory 24 24 25 H Rate Blood Pressure 153/75 143/74 128/71 O2 Sat by Pulse 94 96 96 Oximetry 07/12/19 07/12/19 07/12/19 10:41 10:51 11:00 Temperature Pulse Rate 133 H 133 H 133 H Pulse Rate [ From Monitor] Respiratory 25 H 25 H 25 H Rate Blood Pressure 128/71 130/71 130/71 O2 Sat by Pulse 97 98 98 Oximetry 07/12/19 07/12/19 07/12/19 11:07 11:22 11:30 Temperature 98.7 F 98.8 F Pulse Rate 133 H 132 H 134 H Pulse Rate [ From Monitor] Respiratory 25 H 25 H 25 H Rate Blood Pressure 124/67 133/71 132/70 O2 Sat by Pulse 97 99 97 Oximetry 07/12/19 07/12/19 07/12/19 11:49 11:50 11:52 Temperature 98.3 F Pulse Rate 131 H 131 H Pulse Rate [ 131 H From Monitor] Respiratory 25 H 25 H Rate Blood Pressure 130/69 O2 Sat by Pulse 99 99 Oximetry 07/12/19 07/12/19 07/12/19 11:59 12:00 12:22 Temperature 98.8 F 98.4 F Pulse Rate 131 H 129 H Pulse Rate [ From Monitor] Respiratory 25 H 27 H Rate Blood Pressure 132/74 129/72 O2 Sat by Pulse 98 99 Oximetry 07/12/19 07/12/19 07/12/19 12:30 12:52 13:01 Temperature 98.5 F 98.6 F Pulse Rate 131 H 131 H 132 H Pulse Rate [ From Monitor] Respiratory 25 H 26 H 26 H Rate Blood Pressure 133/68 131/77 140/77 O2 Sat by Pulse 97 99 96 Oximetry Constitutional: appears uncomfortable, other (eelderly and chronically ill looking AAM, normocep[krystina;ic with mildly increased respiratory effort at rest) Eyes: non-icteric ENT: oropharynx moist, other (ETT 24 cm RUTH) Neck: supple, no lymphadenopathy, no JVD Effort: mildly labored Ascultation: Bilateral: diminished breath sounds, rhonchi Percussion: Bilateral: not dull Cardiovascular: regular rate and rhythm Gastrointestinal: normoactive bowel sounds, soft, non-tender, non-distended, other (+ PEG tube with mild TF leakage) Integumentary: decubitus ulcer Extremities: no cyanosis, no edema, pink and warm, pulses normal Neurologic: unable to assess Psychiatric: other (Unable to assess re: AMS) CBC and BMP: 07/12/19 04:46 07/12/19 04:46 ABG, PT/INR, D-dimer: ABG ABG pH 7.442 pH Units (7.350-7.450) 07/11/19 05:25 ABG pCO2 39.0 mm Hg 07/11/19 05:25 ABG pO2 83.6 mm Hg (80.0-90.0) 07/11/19 05:25 ABG O2 Saturation 97.0 % (95.0-99.0) 07/11/19 05:25 PT/INR, D-dimer PT 16.0 Sec. (12.2-14.9) H 07/03/19 22:20 INR 1.26 (0.87-1.13) H 07/03/19 22:20 D-Dimer 1142.18 ng/mlDDU (0-234) H 07/08/19 00:45 Abnormal lab findings: Abnormal Labs 07/03/19 07/03/19 07/03/19 19:57 21:10 21:13 WBC RBC Hgb Hct MCV MCH RDW Plt Count Seg Neuts % (Manual) Lymphocytes % (Manual) Seg Neutrophils # Man Lymphocytes # (Manual) PT INR D-Dimer ABG pH 7.238 L ABG pO2 210.8 H ABG HCO3 15.4 L ABG O2 Saturation 99.2 H ABG Base Excess -11.1 L ABG Hemoglobin 8.0 L Oxyhemoglobin Sodium 124 L Potassium Chloride 92.9 L Carbon Dioxide 10 L BUN 23 H Creatinine 0.5 L Glucose 118 H POC Glucose Lactic Acid Calcium 7.0 L Magnesium Iron TIBC Ferritin AST 70 H ALT 88 H Lactate Dehydrogenase Troponin T 0.032 H C-Reactive Protein Total Protein 5.0 L Albumin 1.8 L Cholesterol 47 L LDL Cholesterol Direct 25 L HDL Cholesterol 20 L Urine WBC (Auto) 12.0 H Vancomycin Trough Coronavirus (PCR) Crossmatch 07/03/19 07/03/19 07/03/19 22:20 22:20 22:20 WBC 30.5 H RBC 2.96 L Hgb 7.7 L Hct 23.9 L MCV 81 L MCH 26 L RDW 18.6 H Plt Count 459 H Seg Neuts % (Manual) 93.0 H Lymphocytes % (Manual) 0.5 L Seg Neutrophils # Man 28.4 H Lymphocytes # (Manual) 0.2 L PT 16.0 H INR 1.26 H D-Dimer ABG pH ABG pO2 ABG HCO3 ABG O2 Saturation ABG Base Excess ABG Hemoglobin Oxyhemoglobin Sodium Potassium Chloride Carbon Dioxide BUN Creatinine Glucose POC Glucose Lactic Acid 6.90 H* Calcium Magnesium Iron TIBC Ferritin AST ALT Lactate Dehydrogenase Troponin T C-Reactive Protein Total Protein Albumin Cholesterol LDL Cholesterol Direct HDL Cholesterol Urine WBC (Auto) Vancomycin Trough Coronavirus (PCR) Crossmatch 07/03/19 07/04/19 07/04/19 23:58 05:15 07:05 WBC 17.1 H RBC 3.22 L Hgb 8.3 L Hct 25.4 L MCV 79 L MCH 26 L RDW 18.6 H Plt Count Seg Neuts % (Manual) 74.0 H Lymphocytes % (Manual) 0 L Seg Neutrophils # Man 12.7 H Lymphocytes # (Manual) 0.0 L PT INR D-Dimer ABG pH 7.310 L ABG pO2 73.2 L ABG HCO3 17.8 L ABG O2 Saturation 93.8 L ABG Base Excess -7.7 L ABG Hemoglobin 9.6 L Oxyhemoglobin 92.3 L Sodium Potassium Chloride Carbon Dioxide BUN Creatinine Glucose POC Glucose Lactic Acid 7.10 H* Calcium Magnesium Iron TIBC Ferritin AST ALT Lactate Dehydrogenase Troponin T C-Reactive Protein Total Protein Albumin Cholesterol LDL Cholesterol Direct HDL Cholesterol Urine WBC (Auto) Vancomycin Trough Coronavirus (PCR) Crossmatch 07/04/19 07/04/19 07/04/19 07:05 07:05 07:05 WBC RBC Hgb Hct MCV MCH RDW Plt Count Seg Neuts % (Manual) Lymphocytes % (Manual) Seg Neutrophils # Man Lymphocytes # (Manual) PT INR D-Dimer ABG pH ABG pO2 ABG HCO3 ABG O2 Saturation ABG Base Excess ABG Hemoglobin Oxyhemoglobin Sodium 120 L Potassium 5.1 H Chloride 90.0 L Carbon Dioxide 14 L BUN 26 H Creatinine 0.5 L Glucose POC Glucose Lactic Acid 3.30 H* Calcium 8.0 L Magnesium Iron 9 L TIBC 97 L Ferritin AST 73 H ALT 91 H Lactate Dehydrogenase Troponin T C-Reactive Protein Total Protein 5.5 L Albumin 2.0 L Cholesterol LDL Cholesterol Direct HDL Cholesterol Urine WBC (Auto) Vancomycin Trough Coronavirus (PCR) Crossmatch 07/04/19 07/04/19 07/04/19 09:39 09:39 09:39 WBC RBC Hgb Hct MCV MCH RDW Plt Count Seg Neuts % (Manual) Lymphocytes % (Manual) Seg Neutrophils # Man Lymphocytes # (Manual) PT INR D-Dimer 1419.14 H ABG pH ABG pO2 ABG HCO3 ABG O2 Saturation ABG Base Excess ABG Hemoglobin Oxyhemoglobin Sodium Potassium Chloride Carbon Dioxide BUN Creatinine Glucose POC Glucose Lactic Acid Calcium Magnesium Iron TIBC Ferritin 1719.0 H AST ALT Lactate Dehydrogenase 234 H Troponin T C-Reactive Protein 15.50 H Total Protein Albumin Cholesterol LDL Cholesterol Direct HDL Cholesterol Urine WBC (Auto) Vancomycin Trough Coronavirus (PCR) Crossmatch 07/04/19 07/04/19 07/04/19 10:09 18:08 18:28 WBC RBC Hgb Hct MCV MCH RDW Plt Count Seg Neuts % (Manual) Lymphocytes % (Manual) Seg Neutrophils # Man Lymphocytes # (Manual) PT INR D-Dimer ABG pH ABG pO2 ABG HCO3 ABG O2 Saturation ABG Base Excess ABG Hemoglobin Oxyhemoglobin Sodium 117 L* Potassium 5.6 H Chloride 90.3 L Carbon Dioxide 16 L BUN 28 H Creatinine 0.5 L Glucose 58 L POC Glucose 65 L Lactic Acid Calcium 8.2 L Magnesium Iron TIBC Ferritin AST ALT Lactate Dehydrogenase Troponin T C-Reactive Protein Total Protein Albumin Cholesterol LDL Cholesterol Direct HDL Cholesterol Urine WBC (Auto) Vancomycin Trough Coronavirus (PCR) Positive A Crossmatch 07/04/19 07/04/19 07/04/19 23:45 Unknown Unknown WBC RBC Hgb Hct MCV MCH RDW Plt Count Seg Neuts % (Manual) Lymphocytes % (Manual) Seg Neutrophils # Man Lymphocytes # (Manual) PT INR D-Dimer 759.77 H ABG pH ABG pO2 ABG HCO3 ABG O2 Saturation ABG Base Excess ABG Hemoglobin Oxyhemoglobin Sodium 122 L Potassium Chloride 93.0 L Carbon Dioxide 19 L BUN 27 H Creatinine 0.5 L Glucose POC Glucose Lactic Acid Calcium 8.3 L Magnesium Iron TIBC Ferritin 1301.0 H AST ALT Lactate Dehydrogenase Troponin T C-Reactive Protein Total Protein Albumin Cholesterol LDL Cholesterol Direct HDL Cholesterol Urine WBC (Auto) Vancomycin Trough Coronavirus (PCR) Crossmatch 07/04/19 07/05/19 07/05/19 Unknown 03:20 04:00 WBC RBC Hgb Hct MCV MCH RDW Plt Count Seg Neuts % (Manual) Lymphocytes % (Manual) Seg Neutrophils # Man Lymphocytes # (Manual) PT INR D-Dimer ABG pH ABG pO2 60.6 L ABG HCO3 ABG O2 Saturation 93.5 L ABG Base Excess -2.4 L ABG Hemoglobin 6.9 L Oxyhemoglobin 92.0 L Sodium 125 L Potassium Chloride 92.6 L Carbon Dioxide 19 L BUN 24 H Creatinine 0.6 L Glucose POC Glucose Lactic Acid Calcium 8.2 L Magnesium 1.40 L Iron TIBC Ferritin AST ALT Lactate Dehydrogenase 242 H Troponin T C-Reactive Protein 16.70 H Total Protein Albumin Cholesterol LDL Cholesterol Direct HDL Cholesterol Urine WBC (Auto) Vancomycin Trough Coronavirus (PCR) Crossmatch 07/05/19 07/05/19 07/05/19 10:11 16:15 17:54 WBC 46.4 H* RBC 2.77 L Hgb 7.2 L Hct 21.9 L MCV 79 L MCH 26 L RDW 19.0 H Plt Count Seg Neuts % (Manual) 82.0 H Lymphocytes % (Manual) 1.0 L Seg Neutrophils # Man 38.0 H Lymphocytes # (Manual) 0.5 L PT INR D-Dimer ABG pH ABG pO2 ABG HCO3 ABG O2 Saturation ABG Base Excess ABG Hemoglobin Oxyhemoglobin Sodium Potassium Chloride Carbon Dioxide BUN Creatinine Glucose POC Glucose 69 L Lactic Acid Calcium Magnesium Iron TIBC Ferritin AST ALT Lactate Dehydrogenase Troponin T C-Reactive Protein Total Protein Albumin Cholesterol LDL Cholesterol Direct HDL Cholesterol Urine WBC (Auto) Vancomycin Trough 23.2 H Coronavirus (PCR) Crossmatch 07/05/19 07/06/19 07/06/19 19:58 00:27 00:27 WBC RBC Hgb Hct MCV MCH RDW Plt Count Seg Neuts % (Manual) Lymphocytes % (Manual) Seg Neutrophils # Man Lymphocytes # (Manual) PT INR D-Dimer 1333.22 H ABG pH ABG pO2 ABG HCO3 ABG O2 Saturation ABG Base Excess ABG Hemoglobin Oxyhemoglobin Sodium 127 L Potassium Chloride Carbon Dioxide BUN Creatinine Glucose POC Glucose Lactic Acid Calcium Magnesium Iron TIBC Ferritin 977.1 H AST ALT Lactate Dehydrogenase Troponin T C-Reactive Protein Total Protein Albumin Cholesterol LDL Cholesterol Direct HDL Cholesterol Urine WBC (Auto) Vancomycin Trough Coronavirus (PCR) Crossmatch 07/06/19 07/06/19 07/06/19 00:27 02:00 02:56 WBC RBC Hgb Hct MCV MCH RDW Plt Count Seg Neuts % (Manual) Lymphocytes % (Manual) Seg Neutrophils # Man Lymphocytes # (Manual) PT INR D-Dimer ABG pH ABG pO2 70.3 L ABG HCO3 ABG O2 Saturation 94.8 L ABG Base Excess ABG Hemoglobin 8.0 L Oxyhemoglobin 93.2 L Sodium Potassium Chloride Carbon Dioxide BUN Creatinine Glucose POC Glucose 117 H Lactic Acid Calcium Magnesium Iron TIBC Ferritin AST ALT Lactate Dehydrogenase 236 H Troponin T C-Reactive Protein 22.90 H Total Protein Albumin Cholesterol LDL Cholesterol Direct HDL Cholesterol Urine WBC (Auto) Vancomycin Trough Coronavirus (PCR) Crossmatch 07/06/19 07/06/19 07/06/19 03:49 03:49 07:40 WBC 38.8 H RBC 2.51 L Hgb 6.7 L Hct 19.9 L* MCV 79 L MCH 27 L RDW 19.2 H Plt Count Seg Neuts % (Manual) 90.5 H Lymphocytes % (Manual) 1.0 L Seg Neutrophils # Man 35.1 H Lymphocytes # (Manual) 0.4 L PT INR D-Dimer ABG pH ABG pO2 ABG HCO3 ABG O2 Saturation ABG Base Excess ABG Hemoglobin Oxyhemoglobin Sodium 131 L Potassium Chloride 96.9 L Carbon Dioxide 18 L BUN 23 H Creatinine 0.5 L Glucose POC Glucose Lactic Acid Calcium 8.0 L Magnesium Iron TIBC Ferritin AST ALT Lactate Dehydrogenase Troponin T C-Reactive Protein Total Protein Albumin Cholesterol LDL Cholesterol Direct HDL Cholesterol Urine WBC (Auto) Vancomycin Trough Coronavirus (PCR) Crossmatch See Detail 07/06/19 07/06/19 07/06/19 12:38 14:39 20:00 WBC RBC Hgb Hct MCV MCH RDW Plt Count Seg Neuts % (Manual) Lymphocytes % (Manual) Seg Neutrophils # Man Lymphocytes # (Manual) PT INR D-Dimer ABG pH ABG pO2 ABG HCO3 ABG O2 Saturation ABG Base Excess ABG Hemoglobin Oxyhemoglobin Sodium Potassium Chloride Carbon Dioxide BUN Creatinine Glucose POC Glucose 112 H 111 H 140 H Lactic Acid Calcium Magnesium Iron TIBC Ferritin AST ALT Lactate Dehydrogenase Troponin T C-Reactive Protein Total Protein Albumin Cholesterol LDL Cholesterol Direct HDL Cholesterol Urine WBC (Auto) Vancomycin Trough Coronavirus (PCR) Crossmatch 07/06/19 07/06/19 07/07/19 22:43 22:56 02:20 WBC RBC Hgb 7.9 L Hct 23.1 L MCV MCH RDW Plt Count Seg Neuts % (Manual) Lymphocytes % (Manual) Seg Neutrophils # Man Lymphocytes # (Manual) PT INR D-Dimer ABG pH ABG pO2 ABG HCO3 ABG O2 Saturation ABG Base Excess ABG Hemoglobin Oxyhemoglobin Sodium Potassium Chloride Carbon Dioxide BUN Creatinine Glucose POC Glucose 122 H 149 H Lactic Acid Calcium Magnesium Iron TIBC Ferritin AST ALT Lactate Dehydrogenase Troponin T C-Reactive Protein Total Protein Albumin Cholesterol LDL Cholesterol Direct HDL Cholesterol Urine WBC (Auto) Vancomycin Trough Coronavirus (PCR) Crossmatch 07/07/19 07/07/19 07/07/19 04:35 05:27 05:34 WBC 23.1 H RBC 3.00 L Hgb 8.1 L Hct 24.2 L MCV 81 L MCH 27 L RDW 20.6 H Plt Count Seg Neuts % (Manual) 90.0 H Lymphocytes % (Manual) 2.0 L Seg Neutrophils # Man 20.8 H Lymphocytes # (Manual) 0.5 L PT INR D-Dimer ABG pH ABG pO2 65.8 L ABG HCO3 ABG O2 Saturation 92.2 L ABG Base Excess ABG Hemoglobin 8.3 L Oxyhemoglobin 90.6 L Sodium Potassium Chloride Carbon Dioxide BUN Creatinine Glucose POC Glucose 132 H Lactic Acid Calcium Magnesium Iron TIBC Ferritin AST ALT Lactate Dehydrogenase Troponin T C-Reactive Protein Total Protein Albumin Cholesterol LDL Cholesterol Direct HDL Cholesterol Urine WBC (Auto) Vancomycin Trough Coronavirus (PCR) Crossmatch 07/07/19 07/07/19 07/07/19 05:34 11:50 15:58 WBC RBC Hgb 8.1 L Hct 24.2 L MCV MCH RDW Plt Count Seg Neuts % (Manual) Lymphocytes % (Manual) Seg Neutrophils # Man Lymphocytes # (Manual) PT INR D-Dimer ABG pH ABG pO2 ABG HCO3 ABG O2 Saturation ABG Base Excess ABG Hemoglobin Oxyhemoglobin Sodium 135 L Potassium 3.3 L Chloride Carbon Dioxide 20 L BUN 27 H Creatinine 0.6 L Glucose 121 H POC Glucose 123 H Lactic Acid Calcium 8.0 L Magnesium Iron TIBC Ferritin AST ALT Lactate Dehydrogenase Troponin T C-Reactive Protein Total Protein Albumin Cholesterol LDL Cholesterol Direct HDL Cholesterol Urine WBC (Auto) Vancomycin Trough Coronavirus (PCR) Crossmatch 07/07/19 07/07/19 07/07/19 17:42 22:00 23:53 WBC RBC Hgb 8.0 L Hct 23.4 L MCV MCH RDW Plt Count Seg Neuts % (Manual) Lymphocytes % (Manual) Seg Neutrophils # Man Lymphocytes # (Manual) PT INR D-Dimer ABG pH ABG pO2 ABG HCO3 ABG O2 Saturation ABG Base Excess ABG Hemoglobin Oxyhemoglobin Sodium Potassium Chloride Carbon Dioxide BUN Creatinine Glucose POC Glucose 107 H 117 H Lactic Acid Calcium Magnesium Iron TIBC Ferritin AST ALT Lactate Dehydrogenase Troponin T C-Reactive Protein Total Protein Albumin Cholesterol LDL Cholesterol Direct HDL Cholesterol Urine WBC (Auto) Vancomycin Trough Coronavirus (PCR) Crossmatch 07/08/19 07/08/19 07/08/19 00:45 00:45 00:45 WBC RBC Hgb Hct MCV MCH RDW Plt Count Seg Neuts % (Manual) Lymphocytes % (Manual) Seg Neutrophils # Man Lymphocytes # (Manual) PT INR D-Dimer 1142.18 H ABG pH ABG pO2 ABG HCO3 ABG O2 Saturation ABG Base Excess ABG Hemoglobin Oxyhemoglobin Sodium Potassium Chloride Carbon Dioxide BUN Creatinine Glucose POC Glucose Lactic Acid Calcium Magnesium Iron TIBC Ferritin 839.0 H AST ALT Lactate Dehydrogenase 253 H Troponin T C-Reactive Protein 18.90 H Total Protein Albumin Cholesterol LDL Cholesterol Direct HDL Cholesterol Urine WBC (Auto) Vancomycin Trough Coronavirus (PCR) Crossmatch 07/08/19 07/08/19 07/08/19 04:30 05:11 12:02 WBC RBC Hgb Hct MCV MCH RDW Plt Count Seg Neuts % (Manual) Lymphocytes % (Manual) Seg Neutrophils # Man Lymphocytes # (Manual) PT INR D-Dimer ABG pH ABG pO2 66.0 L ABG HCO3 ABG O2 Saturation 92.3 L ABG Base Excess ABG Hemoglobin 7.7 L Oxyhemoglobin 90.7 L Sodium Potassium Chloride Carbon Dioxide BUN Creatinine Glucose POC Glucose 108 H 153 H Lactic Acid Calcium Magnesium Iron TIBC Ferritin AST ALT Lactate Dehydrogenase Troponin T C-Reactive Protein Total Protein Albumin Cholesterol LDL Cholesterol Direct HDL Cholesterol Urine WBC (Auto) Vancomycin Trough Coronavirus (PCR) Crossmatch 04/19/20 04/19/20 04/19/20 16:15 18:22 23:35 WBC RBC Hgb Hct MCV MCH RDW Plt Count Seg Neuts % (Manual) Lymphocytes % (Manual) Seg Neutrophils # Man Lymphocytes # (Manual) PT INR D-Dimer ABG pH ABG pO2 ABG HCO3 ABG O2 Saturation ABG Base Excess ABG Hemoglobin Oxyhemoglobin Sodium 134 L Potassium 3.3 L Chloride Carbon Dioxide 21 L BUN 27 H Creatinine 0.6 L Glucose 146 H POC Glucose 134 H 133 H Lactic Acid Calcium Magnesium Iron TIBC Ferritin AST ALT Lactate Dehydrogenase Troponin T C-Reactive Protein Total Protein Albumin Cholesterol LDL Cholesterol Direct HDL Cholesterol Urine WBC (Auto) Vancomycin Trough Coronavirus (PCR) Crossmatch 07/09/19 07/09/19 07/09/19 04:30 04:30 05:00 WBC 18.9 H RBC 2.77 L Hgb 7.4 L Hct 22.8 L MCV 82 L MCH 27 L RDW 20.9 H Plt Count 130 L Seg Neuts % (Manual) 84.0 H Lymphocytes % (Manual) 0 L Seg Neutrophils # Man 15.9 H Lymphocytes # (Manual) 0.0 L PT INR D-Dimer ABG pH ABG pO2 ABG HCO3 ABG O2 Saturation ABG Base Excess ABG Hemoglobin Oxyhemoglobin Sodium Potassium 3.1 L Chloride Carbon Dioxide BUN 26 H Creatinine 0.5 L Glucose 125 H POC Glucose 155 H Lactic Acid Calcium Magnesium Iron TIBC Ferritin AST ALT Lactate Dehydrogenase Troponin T C-Reactive Protein Total Protein Albumin Cholesterol LDL Cholesterol Direct HDL Cholesterol Urine WBC (Auto) Vancomycin Trough Coronavirus (PCR) Crossmatch 07/09/19 07/09/19 07/09/19 05:55 12:22 17:50 WBC RBC Hgb Hct MCV MCH RDW Plt Count Seg Neuts % (Manual) Lymphocytes % (Manual) Seg Neutrophils # Man Lymphocytes # (Manual) PT INR D-Dimer ABG pH ABG pO2 62.8 L ABG HCO3 ABG O2 Saturation ABG Base Excess ABG Hemoglobin 6.1 L Oxyhemoglobin 93.9 L Sodium Potassium Chloride Carbon Dioxide BUN Creatinine Glucose POC Glucose 115 H 133 H Lactic Acid Calcium Magnesium Iron TIBC Ferritin AST ALT Lactate Dehydrogenase Troponin T C-Reactive Protein Total Protein Albumin Cholesterol LDL Cholesterol Direct HDL Cholesterol Urine WBC (Auto) Vancomycin Trough Coronavirus (PCR) Crossmatch 07/10/19 07/10/19 07/10/19 00:38 04:00 04:00 WBC RBC Hgb Hct MCV MCH RDW Plt Count Seg Neuts % (Manual) Lymphocytes % (Manual) Seg Neutrophils # Man Lymphocytes # (Manual) PT INR D-Dimer ABG pH ABG pO2 ABG HCO3 ABG O2 Saturation ABG Base Excess ABG Hemoglobin Oxyhemoglobin Sodium Potassium Chloride 107.9 H Carbon Dioxide BUN 26 H Creatinine 0.4 L Glucose 137 H POC Glucose 122 H Lactic Acid Calcium Magnesium 1.50 L Iron TIBC Ferritin AST ALT Lactate Dehydrogenase 277 H Troponin T C-Reactive Protein 15.10 H Total Protein Albumin Cholesterol LDL Cholesterol Direct HDL Cholesterol Urine WBC (Auto) Vancomycin Trough Coronavirus (PCR) Crossmatch 07/10/19 07/10/19 07/10/19 04:07 05:21 17:25 WBC RBC Hgb Hct MCV MCH RDW Plt Count Seg Neuts % (Manual) Lymphocytes % (Manual) Seg Neutrophils # Man Lymphocytes # (Manual) PT INR D-Dimer ABG pH ABG pO2 65.6 L ABG HCO3 26.3 H ABG O2 Saturation ABG Base Excess ABG Hemoglobin 6.7 L Oxyhemoglobin Sodium Potassium Chloride Carbon Dioxide BUN Creatinine Glucose POC Glucose 144 H 113 H Lactic Acid Calcium Magnesium Iron TIBC Ferritin AST ALT Lactate Dehydrogenase Troponin T C-Reactive Protein Total Protein Albumin Cholesterol LDL Cholesterol Direct HDL Cholesterol Urine WBC (Auto) Vancomycin Trough Coronavirus (PCR) Crossmatch 07/11/19 07/11/19 07/11/19 00:07 05:14 05:25 WBC RBC Hgb Hct MCV MCH RDW Plt Count Seg Neuts % (Manual) Lymphocytes % (Manual) Seg Neutrophils # Man Lymphocytes # (Manual) PT INR D-Dimer ABG pH ABG pO2 ABG HCO3 ABG O2 Saturation ABG Base Excess ABG Hemoglobin 5.8 L Oxyhemoglobin Sodium Potassium Chloride 108.0 H Carbon Dioxide BUN 26 H Creatinine 0.4 L Glucose 110 H POC Glucose 121 H Lactic Acid Calcium Magnesium Iron TIBC Ferritin AST ALT Lactate Dehydrogenase Troponin T C-Reactive Protein Total Protein Albumin Cholesterol LDL Cholesterol Direct HDL Cholesterol Urine WBC (Auto) Vancomycin Trough Coronavirus (PCR) Crossmatch 07/11/19 07/11/19 07/11/19 12:27 18:00 23:42 WBC RBC Hgb Hct MCV MCH RDW Plt Count Seg Neuts % (Manual) Lymphocytes % (Manual) Seg Neutrophils # Man Lymphocytes # (Manual) PT INR D-Dimer ABG pH ABG pO2 ABG HCO3 ABG O2 Saturation ABG Base Excess ABG Hemoglobin Oxyhemoglobin Sodium Potassium Chloride Carbon Dioxide BUN Creatinine Glucose POC Glucose 158 H 141 H 142 H Lactic Acid Calcium Magnesium Iron TIBC Ferritin AST ALT Lactate Dehydrogenase Troponin T C-Reactive Protein Total Protein Albumin Cholesterol LDL Cholesterol Direct HDL Cholesterol Urine WBC (Auto) Vancomycin Trough Coronavirus (PCR) Crossmatch 07/12/19 07/12/19 07/12/19 04:46 04:46 05:23 WBC 23.6 H RBC 2.51 L Hgb 6.7 L Hct 20.8 L MCV 83 L MCH 27 L RDW 20.3 H Plt Count Seg Neuts % (Manual) 94.0 H Lymphocytes % (Manual) 4.0 L Seg Neutrophils # Man 22.2 H Lymphocytes # (Manual) 0.9 L PT INR D-Dimer ABG pH ABG pO2 ABG HCO3 ABG O2 Saturation ABG Base Excess ABG Hemoglobin Oxyhemoglobin Sodium Potassium Chloride 107.1 H Carbon Dioxide BUN 25 H Creatinine 0.4 L Glucose 122 H POC Glucose 118 H Lactic Acid Calcium Magnesium Iron TIBC Ferritin AST ALT Lactate Dehydrogenase Troponin T C-Reactive Protein Total Protein Albumin Cholesterol LDL Cholesterol Direct HDL Cholesterol Urine WBC (Auto) Vancomycin Trough Coronavirus (PCR) Crossmatch 07/12/19 07/12/19 08:49 11:36 WBC RBC Hgb Hct MCV MCH RDW Plt Count Seg Neuts % (Manual) Lymphocytes % (Manual) Seg Neutrophils # Man Lymphocytes # (Manual) PT INR D-Dimer ABG pH ABG pO2 ABG HCO3 ABG O2 Saturation ABG Base Excess ABG Hemoglobin Oxyhemoglobin Sodium Potassium Chloride Carbon Dioxide BUN Creatinine Glucose POC Glucose 124 H Lactic Acid Calcium Magnesium Iron TIBC Ferritin AST ALT Lactate Dehydrogenase Troponin T C-Reactive Protein Total Protein Albumin Cholesterol LDL Cholesterol Direct HDL Cholesterol Urine WBC (Auto) Vancomycin Trough Coronavirus (PCR) Crossmatch See Detail Chest x-ray: pending Allied health notes reviewed: nursing
[2019-07-12] MEDS ORDERED: fentaNYL 100 MCG/2 ML INJ IV PRN (15:09)
[2019-07-12] MEDS: METOPROLOL TARTRATE 5 MG/5 ML INJ IV PRN (15:30)
[2019-07-12] MEDS: fentaNYL DRIP Premix 2,000 MCG/100 ML BAG IV SCH (15:30)
[2019-07-12] MEDS: METOPROLOL TARTRATE 25 MG TAB PO SCH ×2 (15:37→21:49)
[2019-07-13 07:10] LABS: Hematocrit 21.5 % (35.5-45.6); Hemoglobin 6.9 gm/dl (11.8-15.2); Mean Corpuscular HGB Conc 32 % (32-34); Mean Corpuscular Volume 83 fl (84-94); Platelet Count 295 K/mm3 (140-440); Red Blood Count 2.58 M/mm3 (3.65-5.03)
[2019-07-13 07:52] LABS: BUN/Creatinine Ratio 66; Blood Urea Nitrogen 33 mg/dL (9-20); Calcium 8.9 mg/dL (8.4-10.2); Hemolysis Index 3
[2019-07-13] MEDS: MORPHINE 2 MG/1 ML INJ IV PRN (08:06)
--- NOTE | 2019-07-13 08:49 | Progress Note ---
Assessment and Plan 1. Hypoantremia: Suspect SIADH. Sodium level has improved, now 138. Monitor Sodium level. 2. FEN: Metabolic acidosis, improved, monitor. Hypokalemia, K level is better, monitor. Monitor volume status and lytes. 3. Acute hypoxic respiratory failure: Currently intubated and on vent. Pulmonary following. 4. Severe Sepsis, POA. Followed by ID. 5. Severe COVID-19 pneumonia. 6. Shock: Off pressors. BP fluctuating today, monitor for need of pressors. Monitor BP closely. 7. Microcytic anemia, POA: Monitor. 8. Diabetes mellitus. 9. COPD. 10. Encephalopathy, POA: Metabolic. Subjective Date of service: 07/13/19 Principal diagnosis: Bilateral pneumonia, severe sepsis with septic shock, encephalopathy Interval history: Patient was seen and examined at the bedside. Proper PPE was utilized during examination. No acute events reported overnight. Objective - Exam Narrative Exam: General appearance: appears stated age, well developed, intubated on ventilator HEENT: normocephalic, atraumatic Neck: supple, trachea midline Respiratory: clear to auscultation bilaterally, increased effort Heart: S1, S2, normal rhythm, tachycardic Gastrointestinal: soft, nontender, bowel sounds sluggish, no organomegaly, PEG tube noted Integumentary: warm and dry, no rash or lesion noted, no edema, decubitus ulcer Neurologic: intubated and sedated unable to assess Ext: no deformity noted - Vital Signs Vital signs: Vital Signs - 12hr 07/12/19 07/12/19 07/12/19 21:00 21:31 21:49 Temperature Pulse Rate 123 H 128 H 127 H Pulse Rate [ From Monitor] Respiratory 25 H 21 Rate Blood Pressure 124/69 118/61 117/67 O2 Sat by Pulse 96 90 Oximetry 07/12/19 07/12/19 07/12/19 22:00 22:30 22:49 Temperature Pulse Rate 127 H 116 H 114 H Pulse Rate [ From Monitor] Respiratory 25 H 25 H 25 H Rate Blood Pressure 122/65 112/56 113/56 O2 Sat by Pulse 100 94 93 Oximetry 07/12/19 07/12/19 07/12/19 23:00 23:13 23:30 Temperature 99.7 F H Pulse Rate 113 H 115 H Pulse Rate [ From Monitor] Respiratory 25 H 25 H Rate Blood Pressure 111/58 100/53 O2 Sat by Pulse 94 91 Oximetry 07/13/19 07/13/19 07/13/19 00:00 00:09 00:30 Temperature Pulse Rate 115 H 117 H 118 H Pulse Rate [ 117 H From Monitor] Respiratory 25 H 25 H Rate Blood Pressure 106/57 106/57 102/58 O2 Sat by Pulse 94 94 95 Oximetry 07/13/19 07/13/19 07/13/19 01:00 01:30 02:00 Temperature Pulse Rate 119 H 120 H 122 H Pulse Rate [ From Monitor] Respiratory 25 H 25 H 25 H Rate Blood Pressure 106/56 106/55 97/58 O2 Sat by Pulse 93 94 92 Oximetry 07/13/19 07/13/19 07/13/19 02:30 03:00 03:30 Temperature Pulse Rate 120 H 122 H 122 H Pulse Rate [ From Monitor] Respiratory 25 H 25 H 25 H Rate Blood Pressure 96/55 92/47 97/54 O2 Sat by Pulse 93 93 92 Oximetry 07/13/19 07/13/19 07/13/19 04:00 04:30 04:33 Temperature 98.7 F Pulse Rate 125 H 125 H 124 H Pulse Rate [ 126 H From Monitor] Respiratory 25 H 25 H Rate Blood Pressure 92/52 96/52 96/52 O2 Sat by Pulse 92 92 93 Oximetry 07/13/19 07/13/19 07/13/19 05:00 05:31 06:00 Temperature Pulse Rate 127 H 132 H 126 H Pulse Rate [ From Monitor] Respiratory 25 H 24 25 H Rate Blood Pressure 85/50 87/57 88/53 O2 Sat by Pulse 90 91 91 Oximetry 07/13/19 07/13/19 07/13/19 06:30 07:00 07:30 Temperature Pulse Rate 126 H 127 H 129 H Pulse Rate [ From Monitor] Respiratory 10 L 16 18 Rate Blood Pressure 96/55 89/52 83/59 O2 Sat by Pulse 89 Oximetry 07/13/19 07/13/19 07/13/19 07:53 08:00 08:30 Temperature Pulse Rate 130 H 130 H 129 H Pulse Rate [ From Monitor] Respiratory 26 H 20 Rate Blood Pressure 95/62 95/62 99/61 O2 Sat by Pulse 91 91 88 Oximetry - Lab 07/13/19 06:50 07/13/19 06:50 Most recent lab results ABG pH 7.442 pH Units (7.350-7.450) 07/11/19 05:25 ABG pCO2 39.0 mm Hg 07/11/19 05:25 ABG pO2 83.6 mm Hg (80.0-90.0) 07/11/19 05:25 ABG HCO3 26.0 mmol/L (20.0-26.0) 07/11/19 05:25 ABG O2 Saturation 97.0 % (95.0-99.0) 07/11/19 05:25 Calcium 8.9 mg/dL (8.4-10.2) 07/13/19 06:50 Phosphorus 3.60 mg/dL (2.5-4.5) 07/05/19 04:00 Magnesium 1.80 mg/dL (1.7-2.3) 07/11/19 05:14 Medications & Allergies - Medications Allergies/Adverse Reactions: Allergies No Known Allergies Allergy (Unverified 09/09/16 16:29) Home Medications: Home Medications Medication Instructions Recorded Confirmed Last Taken Type Acetaminophen [Tylenol] 500 mg PO TID 07/04/19 07/04/19 Unknown History Albuterol Sulfate [Proair 90 mcg IH TID 07/04/19 07/04/19 Unknown History Digihaler] Amlodipine Besylate [Norvasc] 2.5 mg PO QDAY 07/04/19 07/04/19 Unknown History Aspirin [Aspirin BABY CHEW TAB] 81 mg PO QDAY 07/04/19 07/04/19 Unknown History Atorvastatin Calcium [Lipitor] 80 mg PO QDAY 07/04/19 07/04/19 Unknown History Benztropine Mesylate 0.5 mg PO QDAY 07/04/19 07/04/19 Unknown History Budesonide/Formoterol Fumarate 10.2 gm IH BID 07/04/19 07/04/19 Unknown History [Budesonide-Formoterol 160-4.5] Divalproex ER [DepaKOTE ER] 1,000 mg PO QDAY 07/04/19 07/04/19 Unknown History Docusate Sodium [Colace] 100 mg PO QDAY 07/04/19 07/04/19 Unknown History Folic Acid [Folvite] 1 mg PO QDAY 07/04/19 07/04/19 Unknown History Hydrophilic Ointment [Dermafix] 113 gm TP QDAY 07/04/19 07/04/19 Unknown History Losartan [Cozaar] 100 mg PO QDAY 07/04/19 07/04/19 Unknown History Metformin HCl [Metformin HCl ER] 500 mg PO QDAY 07/04/19 07/04/19 Unknown History Metoprolol Tartrate 25 mg PO BID 07/04/19 07/04/19 Unknown History Multivit with Minerals/Ginseng 1 each PO QDAY 07/04/19 07/04/19 Unknown History [Super Ginseng Multivit Cap] Quetiapine Fumarate [SEROquel Xr] 400 mg PO QHS 07/04/19 07/04/19 Unknown History Sertraline HCl [Zoloft] 100 mg PO QDAY 07/04/19 07/04/19 Unknown History Sildenafil Citrate [Viagra] 100 mg PO QDAY PRN 07/04/19 07/04/19 Unknown History Tamsulosin [Flomax] 0.4 mg PO QDAY 07/04/19 07/04/19 Unknown History Active Medications: Generic Name Dose Route Start Last Admin Trade Name Freq PRN Reason Stop Dose Admin Acetaminophen 650 mg 07/04/19 04:24 Tylenol PA Q6H PRN Pain MILD(1-3)/Fever >100.5/MURO Acetaminophen 650 mg 07/10/19 04:00 07/11/19 04:16 Tylenol PO 650 mg Q6HR PRN Administration Pain, Mild (1-3) FEVER Lipase/Protease/Amylase 1 each 07/04/19 10:04 Pancrewhitley Gilbert 10,500 Unit FEEDTUBE PRN PRN For Clogged Feeding Tube Aspirin 81 mg 07/05/19 10:00 07/12/19 09:54 Baby Aspirin PO 81 mg QDAY TAMMIE Administration Dextrose 50 ml 07/04/19 06:54 D50w (25gm) Syringe IV Q30MIN PRN Hypoglycemia Protocol Docusate Sodium 100 mg 07/10/19 10:00 07/12/19 21:49 Colace PO 100 mg BID TAMMIE Administration Famotidine 20 mg 07/10/19 10:00 07/12/19 21:49 Pepcid PO 20 mg BID TAMMIE Administration Fentanyl 50 mcg 07/12/19 15:09 Sublimaze IV Q10MIN PRN ANALGESIA Folic Acid 1 mg 07/05/19 10:00 07/12/19 09:55 Folvite PO 1 mg QDAY TAMMIE Administration Hydrophilic Ointment 1 applic 07/03/19 19:56 07/05/19 17:42 Vaseline Lip Therapy TP 1 applic Q2HR PRN Administration Dry Lips Norepinephrine 4 mg in 250 mls @ 7.5 mls/hr 07/03/19 23:00 07/07/19 10:15 Levophed Drip 4 Mg/Ns 250 Ml IV 0 mcg/min TITR TAMMIE 0 mls/hr Titration Protocol 2 MCG/MIN Fentanyl Citrate 2,000 mcg in 100 mls @ 4.25 mls/hr 07/12/19 16:00 07/12/19 15:30 Fentanyl Drip Premix IV 1 mcg/kg/hr TITR TAMMIE 4.25 mls/hr Administration Protocol 1 MCG/KG/HR Insulin Human Lispro 0 unit 07/07/19 12:00 07/12/19 18:22 Humalog SUB-Q Not Given Q6HR [facility] Protocol Levetiracetam 750 mg 07/06/19 11:00 07/12/19 21:50 Keppra FEEDTUBE 750 mg Q12HR TAMMIE Administration Metoprolol Tartrate 5 mg 07/12/19 15:08 07/12/19 15:30 Metoprolol IV 5 mg Q6HR PRN Administration Tachyarrhythmias Metoprolol Tartrate 12.5 mg 07/12/19 16:00 07/12/19 21:49 Metoprolol PO 12.5 mg BID TAMMIE Administration Morphine Sulfate 2 mg 07/04/19 04:24 07/13/19 08:06 Morphine IV 2 mg Q4H PRN Administration Pain, Moderate (4-6) Multi-Ingred Cream/Lotion/Oil/Oint 1 applic 07/03/19 19:56 07/05/19 13:19 Artificial Tears Ophth Oint OU 1 applic Q4HR PRN Administration Dry Eye(s) Naloxone HCl 0.1 mg 07/04/19 04:24 Naloxone IV Q2MIN PRN Res Rate </= 8 or 02 SAT < 92% Scopolamine 1 each 07/10/19 11:00 07/10/19 17:08 Transderm-Scop TD 1 each Q3D TAMMIE Administration Simple Syrup 15 ml 07/04/19 10:04 07/10/19 21:56 Simple Syrup FEEDTUBE 15 ml PRN PRN Administration Hypoglycemia Simple Syrup 30 ml 07/04/19 10:04 Simple Syrup FEEDTUBE PRN PRN Hypoglycemia Sodium Bicarbonate 325 mg 07/04/19 10:04 Sodium Bicarbonate FEEDTUBE PRN PRN For Clogged Feeding Tube Sodium Chloride 10 ml 07/04/19 10:00 07/12/19 09:55 Sodium Chloride Flush Syringe 10 Ml IV 10 ml BID TAMMIE Administration Sodium Chloride 10 ml 07/04/19 04:24 Sodium Chloride Flush Syringe 10 Ml IV PRN PRN LINE FLUSH Sodium Hypochlorite 1 applic 07/10/19 14:00 07/12/19 10:13 Dakin's Half Strength TP 1 applicatio BID TAMMIE Administration
[2019-07-13 08:52] LABS: Anisocytosis 1+; Basophils % (Manual) 0 % (0.0-1.8); Eosinophils % (Manual) 0 % (0.0-4.3); Hypochromasia 1+; Total Cells Counted 100
[2019-07-13 08:53] LABS: Platelet Estimate Consistent w Auto
[2019-07-13] MEDS: METOPROLOL TARTRATE 25 MG TAB PO SCH ×2 (09:00→22:44)
[2019-07-13] MEDS: FOLIC ACID 1 MG TAB PO SCH (09:00)
[2019-07-13] MEDS: levETIRAcetam 500 MG/5 ML ORAL LIQD FEEDTUBE SCH ×2 (09:00→22:46)
[2019-07-13] MEDS: ASPIRIN 81 MG TAB CHEW PO SCH (09:00)
[2019-07-13] MEDS: DOCUSATE SODIUM 100 MG/10 ML ORAL LIQD PO SCH ×2 (09:00→22:46)
[2019-07-13] MEDS: FAMOTIDINE 20 MG TAB PO SCH ×2 (09:01→22:44)
--- NOTE | 2019-07-13 09:37 | Progress Note ---
Assessment and Plan Assessment and plan: COVid positive- Acute respiratory Failure with Hypoxia - Due to bilateral PNA with COVID 19 infection. -pulmonary critical care following -Continue scheduled labs, mechanical ventilation, supportive care as needed -Completed bacteremia Bilateral PNA with severe sepsis - see above -ID following, completed Plaquenil and cefepime Acute metabolic encephalopathy -Likely due to respiratory arrest and severe sepsis - Hold Hyoscamine. monitor Troponins. -CT head unremarkable Shock, likely septic: Lactic acidosis -Levophed as needed, continue IV fluid COPD with exacerbation -Likely due to COVID-19 pneumonia -Continue scheduled nebs Anemia, Microcytic - check iron, TIBC - monitor H&H, transfuse one unit Pressure Ulcers - buttocks, right lateral foot area - present upon admission - wound care consulted Hyponatremia, continue IV fluid DM type 2 - Accuchecks with sliding scale insulin HTN Essential, now hypotensive -relatively low BP - on IVF. monitor Seizure D/o/CVA/immobility/BIpolar D/o/SCZ chronic medical conditions - continue meds Severe PCM, TF for now, dietary following patient is DNR- Called and verified information Guarded prognosis, patient is critically ill 07/04: COVID +ve, start on plaquinil, called no answer 07/05: transfuse one unit PRBC, Hb dropped to ~6, called and updated 07/06; H&H stable, serum chemistry improved. On mechanical ventilation with high inflammatory markers. Continue Plaquenil and empiric antibiotics. ID following, prognosis remains guarded and extremely poor. 07/07: On mechanical ventilation with high inflammatory markers. Continue Plaquenil and empiric antibiotics. ID following, prognosis remains guarded and extremely poor. 07/08: Called today and verified the CODE STATUS. Patient remains DNR. He is still intubated, with poor prognosis. Continue to follow inflammatory markers. 07/09 wean off from vent as tolerated, completed empiric antibiotic and Plaquenil 07/10 wean off from vent as tolerated. poor prognosis 07/11 hb 6.7 today, transfuse one PRBC. wean off from vent as tolerated. poor prognosis 07/11 remains critically on vent. Hb 6.9 The high probability of a clinically significant, sudden or life threatening deterioration of the [respiratory, CVS, [employer]] system(s) required my full and dire ct attention, intervention and personal management. The aggregate critical care time was [32] minutes. This time is in addition to time spent performing reported procedures but includes the following: [x] Data Review and interpretation [x] Patient assessment and monitoring of vital signs [x] Documentation [x] Medication orders and management Brief History: 69-year-old male with PMH of CVA with RHP, HTN, DM2, SCZ, Dementia, Alcohol use D/o, Seizure D/O, presents to the emergency department via EMS from home with progressive SOB and impending espiratory failure with an unresponsive episode. Apparently the patient was witnessed becoming unresponsive by family members. Reportedly, pt had just gotten a high dose of Hyoscamine When EMS got there, the patient was agonal breathing and had a faint pulse. No CPR was indicated per EMS. PT was intubated and received some IV fluid en route to the hospital. He is COVID19 positive. Patient now being managed sepsis, b/l PNA, acute respiratory failure. History Interval history: Patient seen and examined Patient charts and medications reviewed Clinically no change COVID positive intubated on vent DNR status Family considering hospice Vital signs noted Hospitalist Physical - Constitutional Vitals: Temp Pulse Resp BP Pulse Ox 99.7 F H 132 H 20 109/61 88 07/13/19 08:00 07/13/19 09:00 07/13/19 08:30 07/13/19 09:00 07/13/19 08:30 General appearance: Present: no acute distress, well-nourished, other (On vent) - EENT Eyes: Present: PERRL, EOM intact - Neck Neck: Present: supple, normal ROM - Respiratory Respiratory effort: normal, labored - Cardiovascular Rhythm: regular Heart Sounds: Present: S1 & S2 - Extremities Extremities: no ischemia Extremity abnormal: edema - Abdominal General gastrointestinal: soft, non-tender, non-distended, normal bowel sounds - Neurologic Neurologic: other (Residual weakness) Results - Labs CBC & Chem 7: 07/14/19 04:40 07/14/19 04:40 Labs: Laboratory Last Values WBC 23.9 K/mm3 (4.5-11.0) H 07/13/19 06:50 RBC 2.58 M/mm3 (3.65-5.03) L 07/13/19 06:50 Hgb 6.9 gm/dl (11.8-15.2) L 07/13/19 06:50 Hct 21.5 % (35.5-45.6) L 07/13/19 06:50 MCV 83 fl (84-94) L 07/13/19 06:50 MCH 27 pg (28-32) L 07/13/19 06:50 MCHC 32 % (32-34) 07/13/19 06:50 RDW 19.0 % (13.2-15.2) H 07/13/19 06:50 Plt Count 295 K/mm3 (140-440) 07/13/19 06:50 Lymph % (Auto) Refrigeration Person 07/03/19 22:20 [place] % (Auto) Refrigeration Person 07/03/19 22:20 Eos % (Auto) Refrigeration Person 07/03/19 22:20 Baso % (Auto) Refrigeration Person 07/03/19 22:20 Lymph # Refrigeration Person 07/03/19 22:20 [place] # Refrigeration Person 07/03/19 22:20 Eos # Refrigeration Person 07/03/19 22:20 Baso # Refrigeration Person 07/03/19 22:20 Add Manual Diff Complete 07/13/19 06:50 Total Counted 100 07/13/19 06:50 Seg Neutrophils % Refrigeration Person 07/13/19 06:50 Seg Neuts % (Manual) 96.0 % (40.0-70.0) H 07/13/19 06:50 Band Neutrophils % 0 % 07/13/19 06:50 Lymphocytes % (Manual) 3.0 % (13.4-35.0) L 07/13/19 06:50 Reactive Lymphs % (Man) 0 % 07/13/19 06:50 Monocytes % (Manual) 1.0 % (0.0-7.3) 07/13/19 06:50 Eosinophils % (Manual) 0 % (0.0-4.3) 07/13/19 06:50 Basophils % (Manual) 0 % (0.0-1.8) 07/13/19 06:50 Metamyelocytes % 0 % 07/13/19 06:50 Myelocytes % 0 % 07/13/19 06:50 Promyelocytes % 0 % 07/13/19 06:50 Blast Cells % 0 % 07/13/19 06:50 Nucleated RBC % Not Reportable 07/13/19 06:50 Seg Neutrophils # Refrigeration Person 07/03/19 22:20 Seg Neutrophils # Man 22.9 K/mm3 (1.8-7.7) H 07/13/19 06:50 Band Neutrophils # 0.0 K/mm3 07/13/19 06:50 Lymphocytes # (Manual) 0.7 K/mm3 (1.2-5.4) L 07/13/19 06:50 Abs React Lymphs (Man) 0.0 K/mm3 07/13/19 06:50 Monocytes # (Manual) 0.2 K/mm3 (0.0-0.8) 07/13/19 06:50 Eosinophils # (Manual) 0.0 K/mm3 (0.0-0.4) 07/13/19 06:50 Basophils # (Manual) 0.0 K/mm3 (0.0-0.1) 07/13/19 06:50 Metamyelocytes # 0.0 K/mm3 07/13/19 06:50 Myelocytes # 0.0 K/mm3 07/13/19 06:50 Promyelocytes # 0.0 K/mm3 07/13/19 06:50 Blast Cells # 0.0 K/mm3 07/13/19 06:50 WBC Morphology Not Reportable 07/13/19 06:50 Hypersegmented Neuts Not Reportable 07/13/19 06:50 Hyposegmented Neuts Not Reportable 07/13/19 06:50 Hypogranular Neuts Not Reportable 07/13/19 06:50 Smudge Cells Not Reportable 07/13/19 06:50 Toxic Granulation Not Reportable 07/13/19 06:50 Toxic Vacuolation Not Reportable 07/13/19 06:50 Dohle Bodies Not Reportable 07/13/19 06:50 Pelger-Huet Anomaly Not Reportable 07/13/19 06:50 Mendy Rods Not Reportable 07/13/19 06:50 Platelet Estimate Consistent w auto 07/13/19 06:50 Clumped Platelets Not Reportable 07/13/19 06:50 Plt Clumps, EDTA Not Reportable 07/13/19 06:50 Large Platelets Not Reportable 07/13/19 06:50 Giant Platelets Not Reportable 07/13/19 06:50 Platelet Satelliting Not Reportable 07/13/19 06:50 Plt Morphology Comment Not Reportable 07/13/19 06:50 RBC Morphology Not Reportable 07/13/19 06:50 Dimorphic RBCs Not Reportable 07/13/19 06:50 Polychromasia Not Reportable 07/13/19 06:50 Hypochromasia 1+ 07/13/19 06:50 Poikilocytosis Not Reportable 07/13/19 06:50 Anisocytosis 1+ 07/13/19 06:50 Microcytosis Not Reportable 07/13/19 06:50 Macrocytosis Not Reportable 07/13/19 06:50 Spherocytes Not Reportable 07/13/19 06:50 Pappenheimer Bodies Not Reportable 07/13/19 06:50 Sickle Cells Not Reportable 07/13/19 06:50 Target Cells Not Reportable 07/13/19 06:50 Tear Drop Cells Not Reportable 07/13/19 06:50 Ovalocytes Not Reportable 07/13/19 06:50 Helmet Cells Not Reportable 07/13/19 06:50 [place] Bodies Not Reportable 07/13/19 06:50 Clyman Rings Not Reportable 07/13/19 06:50 Joanne Cells Not Reportable 07/13/19 06:50 Bite Cells Not Reportable 07/13/19 06:50 Crenated Cell Not Reportable 07/13/19 06:50 Elliptocytes Not Reportable 07/13/19 06:50 Acanthocytes (Spur) Not Reportable 07/13/19 06:50 Rouleaux Not Reportable 07/13/19 06:50 Hemoglobin C Crystals Not Reportable 07/13/19 06:50 Schistocytes Not Reportable 07/13/19 06:50 Malaria parasites Not Reportable 07/13/19 06:50 Jeevan Bodies Not Reportable 07/13/19 06:50 Hem Pathologist Commnt No 07/13/19 06:50 PT 16.0 Sec. (12.2-14.9) H 07/03/19 22:20 INR 1.26 (0.87-1.13) H 07/03/19 22:20 D-Dimer 1142.18 ng/mlDDU (0-234) H 07/08/19 00:45 ABG pH 7.442 pH Units (7.350-7.450) 07/11/19 05:25 ABG pCO2 39.0 mm Hg 07/11/19 05:25 ABG pO2 83.6 mm Hg (80.0-90.0) 07/11/19 05:25 ABG HCO3 26.0 mmol/L (20.0-26.0) 07/11/19 05:25 ABG O2 Saturation 97.0 % (95.0-99.0) 07/11/19 05:25 ABG O2 Content 7.9 (0.0-44) 07/11/19 05:25 ABG Base Excess 1.7 mmol/L (-2.0-3.0) 07/11/19 05:25 ABG Hemoglobin 5.8 gm/dl (14.0-18.0) L 07/11/19 05:25 ABG Carboxyhemoglobin 1.3 % (0.0-5.0) 07/11/19 05:25 ABG Methemoglobin 0.5 % (0.0-1.5) 07/11/19 05:25 Oxyhemoglobin 95.3 % (95.0-99.0) 07/11/19 05:25 FiO2 60 % 07/11/19 05:25 Sodium 138 mmol/L (137-145) 07/13/19 06:50 Potassium 4.1 mmol/L (3.6-5.0) 07/13/19 06:50 Chloride 105.2 mmol/L (98-107) 07/13/19 06:50 Carbon Dioxide 22 mmol/L (22-30) 07/13/19 06:50 Anion Gap 15 mmol/L 07/13/19 06:50 BUN 33 mg/dL (9-20) H 07/13/19 06:50 Creatinine 0.5 mg/dL (0.8-1.5) L 07/13/19 06:50 Estimated GFR > 60 ml/min 07/13/19 06:50 BUN/Creatinine Ratio 66 % 07/13/19 06:50 Glucose 136 mg/dL (75-100) H 07/13/19 06:50 POC Glucose 126 (70-105) H 07/13/19 05:26 Osmolality 268 Mosm/kg 07/05/19 04:00 Lactic Acid 3.30 mmol/L (0.7-2.0) H* 07/04/19 07:05 Uric Acid 7.2 mg/dL (3.5-7.6) 07/05/19 04:00 Calcium 8.9 mg/dL (8.4-10.2) 07/13/19 06:50 Phosphorus 3.60 mg/dL (2.5-4.5) 07/05/19 04:00 Magnesium 1.80 mg/dL (1.7-2.3) 07/11/19 05:14 Iron 9 ug/dL (49-181) L 07/04/19 07:05 TIBC 97 mcg/dL (250-450) L 07/04/19 07:05 Ferritin 839.0 ng/mL (13.0-400.0) H 07/08/19 00:45 Total Bilirubin 0.20 mg/dL (0.1-1.2) 07/04/19 07:05 AST 73 units/L (5-40) H 07/04/19 07:05 ALT 91 units/L (7-56) H 07/04/19 07:05 Alkaline Phosphatase 114 units/L (35-129) 07/04/19 07:05 Ammonia 35.0 umol/L (25-60) 07/03/19 23:58 Lactate Dehydrogenase 277 units/L (91-180) H 07/10/19 04:00 Troponin T 0.013 ng/mL (0.00-0.029) 07/04/19 07:05 C-Reactive Protein 15.10 mg/dL (0.00-1.30) H 07/10/19 04:00 Total Protein 5.5 g/dL (6.3-8.2) L 07/04/19 07:05 Albumin 2.0 g/dL (3.9-5) L 07/04/19 07:05 Albumin/Globulin Ratio 0.6 % 07/04/19 07:05 Triglycerides 33 mg/dL (2-149) 07/03/19 19:57 Cholesterol 47 mg/dL (50-199) L 07/03/19 19:57 LDL Cholesterol Direct 25 mg/dL (50-130) L 07/03/19 19:57 HDL Cholesterol 20 mg/dL (40-59) L 07/03/19 19:57 Cholesterol/HDL Ratio 2.35 % 07/03/19 19:57 Procalcitonin 1.25 ng/mL (<0.15) 07/10/19 04:00 TSH 2.170 mlU/mL (0.270-4.200) 07/03/19 22:20 Total Cortisol 28.0 mcg/dL () 07/05/19 10:11 Urine Color [place] (Yellow) 07/03/19 21:13 Urine Turbidity Cloudy (Clear) 07/03/19 21:13 Urine pH 5.0 (5.0-7.0) 07/03/19 21:13 Ur Specific [place] 1.016 (1.003-1.030) 07/03/19 21:13 Urine Protein 30 mg/dl mg/dL (Negative) 07/03/19 21:13 Urine Glucose (UA) Neg mg/dL (Negative) 07/03/19 21:13 Urine Ketones Neg mg/dL (Negative) 07/03/19 21:13 Urine Blood Neg (Negative) 07/03/19 21:13 Urine Nitrite Neg (Negative) 07/03/19 21:13 Urine Bilirubin Neg (Negative) 07/03/19 21:13 Urine Urobilinogen 2.0 mg/dL (<2.0) 07/03/19 21:13 Ur Leukocyte Esterase Neg (Negative) 07/03/19 21:13 Urine WBC (Auto) 12.0 /HPF (0.0-6.0) H 07/03/19 21:13 Urine RBC (Auto) 6.0 /HPF (0.0-6.0) 07/03/19 21:13 U Epithel Cells (Auto) 1.0 /HPF (0-13.0) 07/03/19 21:13 Urine Bacteria (Auto) 1+ /HPF (Negative) 07/03/19 21:13 Urine WBC Clumps Few /HPF 07/03/19 21:13 Urine Mucus Few /HPF 07/03/19 21:13 Urine Osmolality 293 Mosm/kg 07/05/19 08:15 Vancomycin Trough 23.2 ug/mL (5.0-20.0) H 07/05/19 17:54 Urine Opiates Screen Presumptive negative 07/03/19 21:13 Urine Methadone Screen Presumptive negative 07/03/19 21:13 Ur Barbiturates Screen Presumptive negative 07/03/19 21:13 Ur Phencyclidine Scrn Presumptive negative 07/03/19 21:13 Ur Amphetamines Screen Presumptive negative 07/03/19 21:13 U Benzodiazepines Scrn Presumptive negative 07/03/19 21:13 Urine Cocaine Screen Presumptive negative 07/03/19 21:13 U Marijuana (THC) Screen Presumptive negative 07/03/19 21:13 Drugs of Abuse Note Disclamer 07/03/19 21:13 Plasma/Serum Alcohol < 0.01 % (0-0.07) 07/03/19 23:58 Coronavirus (PCR) Positive (Negative) A 07/04/19 10:09 Blood Type B POSITIVE 07/12/19 08:49 Antibody Screen Negative 07/12/19 08:49 Crossmatch See Detail 07/12/19 08:49 Wright/IV: Voiding Method Indwelling Catheter IV Catheter Type [Left Upper Mid-line arm] IV Catheter Type [Right INT / Saline Lock Forearm] IV Catheter Type [Right Hand] INT / Saline Lock IV Catheter Type [Right CVL Femoral] IV Catheter Type [Left INT / Saline Lock External Jugular] Active Medications - Current Medications Current Medications: Generic Name Dose Route Start Last Admin Trade Name Freq PRN Reason Stop Dose Admin Acetaminophen 650 mg 07/04/19 04:24 Tylenol PA Q6H PRN Pain MILD(1-3)/Fever >100.5/MURO Acetaminophen 650 mg 07/10/19 04:00 07/11/19 04:16 Tylenol PO 650 mg Q6HR PRN Administration Pain, Mild (1-3) FEVER Lipase/Protease/Amylase 1 each 07/04/19 10:04 Pancreaze 10,500 Unit FEEDTUBE PRN PRN For Clogged Feeding Tube Aspirin 81 mg 07/05/19 10:00 07/13/19 09:00 Baby Aspirin PO 81 mg QDAY TAMMIE Administration Dextrose 50 ml 07/04/19 06:54 D50w (25gm) Syringe IV Q30MIN PRN Hypoglycemia Protocol Docusate Sodium 100 mg 07/10/19 10:00 07/13/19 09:00 Colace PO 100 mg BID TAMMIE Administration Famotidine 20 mg 07/10/19 10:00 07/13/19 09:01 Pepcid PO 20 mg BID TAMIME Administration Fentanyl 50 mcg 07/12/19 15:09 Sublimaze IV Q10MIN PRN ANALGESIA Folic Acid 1 mg 07/05/19 10:00 07/13/19 09:00 Folvite PO 1 mg QDAY TAMMIE Administration Hydrophilic Ointment 1 applic 07/03/19 19:56 07/05/19 17:42 Vaseline Lip Therapy TP 1 applic Q2HR PRN Administration Dry Lips Norepinephrine 4 mg in 250 mls @ 7.5 mls/hr 07/03/19 23:00 07/07/19 10:15 Levophed Drip 4 Mg/Ns 250 Ml IV 0 mcg/min TITR TAMMIE 0 mls/hr Titration Protocol 2 MCG/MIN Fentanyl Citrate 2,000 mcg in 100 mls @ 4.25 mls/hr 07/12/19 16:00 07/12/19 15:30 Fentanyl Drip Premix IV 1 mcg/kg/hr TITR TAMMIE 4.25 mls/hr Administration Protocol 1 MCG/KG/HR Insulin Human Lispro 0 unit 07/07/19 12:00 07/12/19 18:22 Humalog SUB-Q Not Given Q6HR [facility] Protocol Levetiracetam 750 mg 07/06/19 11:00 07/13/19 09:00 Keppra FEEDTUBE 750 mg Q12HR TAMMIE Administration Metoprolol Tartrate 5 mg 07/12/19 15:08 07/12/19 15:30 Metoprolol IV 5 mg Q6HR PRN Administration Tachyarrhythmias Metoprolol Tartrate 12.5 mg 07/12/19 16:00 07/13/19 09:00 Metoprolol PO 12.5 mg BID TAMMIE Administration Morphine Sulfate 2 mg 07/04/19 04:24 07/13/19 08:06 Morphine IV 2 mg Q4H PRN Administration Pain, Moderate (4-6) Multi-Ingred Cream/Lotion/Oil/Oint 1 applic 07/03/19 19:56 07/05/19 13:19 Artificial Tears Ophth Oint OU 1 applic Q4HR PRN Administration Dry Eye(s) Naloxone HCl 0.1 mg 07/04/19 04:24 Naloxone IV Q2MIN PRN Res Rate </= 8 or 02 SAT < 92% Scopolamine 1 each 07/10/19 11:00 07/10/19 17:08 Transderm-Scop TD 1 each Q3D TAMMIE Administration Simple Syrup 15 ml 07/04/19 10:04 07/10/19 21:56 Simple Syrup FEEDTUBE 15 ml PRN PRN Administration Hypoglycemia Simple Syrup 30 ml 07/04/19 10:04 Simple Syrup FEEDTUBE PRN PRN Hypoglycemia Sodium Bicarbonate 325 mg 07/04/19 10:04 Sodium Bicarbonate FEEDTUBE PRN PRN For Clogged Feeding Tube Sodium Chloride 10 ml 07/04/19 10:00 07/13/19 09:02 Sodium Chloride Flush Syringe 10 Ml IV 10 ml BID TAMMIE Administration Sodium Chloride 10 ml 07/04/19 04:24 Sodium Chloride Flush Syringe 10 Ml IV PRN PRN LINE FLUSH Sodium Hypochlorite 1 applic 07/10/19 14:00 07/12/19 10:13 Dakin's Half Strength TP 1 applicatio BID TAMMIE Administration Nutrition/Malnutrition Assess - Dietary Evaluation Nutrition/Malnutrition Findings: Nutrition Notes Start: 07/04/19 09:17 Freq: Status: Active Protocol: Document 07/11/19 11:01 LM (Rec: 07/11/19 11:05 LM [id number]) Nutrition Notes Initial or Follow up Reassessment Current Diagnosis Acute Kidney Injury,COPD, Decubitus(Pressure Ulcer), Diabetes,Hypertension Other Pertinent Diagnosis COVID-19 (+), pneu, seizures, schizophrenia, Buttock and R foot PU, Current Diet Vital AF 1.2 at 65ml/hr Labs/Tests K 3.6 Pertinent Medications Reviewed Height 5 ft 11 in Weight 90.7 kg [place] Body Weight (kg) 78.18 BMI 27.8 Subjective/Other Information TF running at goal and pt is tolerating TF. Percent of energy/protein needs met: 92%/100% Burn Absent Trauma Absent Current % PO Negligible Minimum of two criteria No physical signs of malnutrition #2 Nutrition Diagnosis Increased nutrient needs ( specify in comment below) Diagnosis Progress(for reassessment Continues documentation) #1 Nutrition Diagnosis Inadequate oral intake Diagnosis Progress(for reassessment Continues documentation) Is patient on ventilator? Yes Is Patient Ambulatory and/or Out of Bed No REE-([facility]-confined to bed) 58 Additional Notes Protein: 109-182g (1.2-2g/kg) Fluid: 1 ml/kcal or per MD Nutrition Intervention Change Diet Order: TF Nutrition Support: Vital AF 1.2 at 65ml/hr Flush 100ml q4h Kcal 1,872 Protein (gm) 117 Fluid (mL) 973 Goal #1 TF tolerance Goal #2 Meet at least 75% of energy and protein needs Anticipated Discharge Needs: unable to determine at this time Follow-Up By: 07/16/19 Additional Comments F/U for TF tolerance
[2019-07-13] MEDS: SCOPOLAMINE TRANSDERMAL PATCH 72 HR TD SCH (10:20)
[2019-07-13] MEDS: SODIUM HYPOCHLORITE, DAKIN'S 1/2 STRENGTH (0.25%) 473 ML TOPICAL SOLN TP SCH (10:24)
[2019-07-13] MEDS: INSULIN LISPRO 100 UNIT/ML SUB-Q SCH ×3 (12:44→20:22)
--- NOTE | 2019-07-13 13:07 | Progress Note ---
Assessment and Plan Acute hypoxemic respiratory failure on MVS Severe sepsis with Shock. Bilateral Pneumonia. PUI coronavirus-19 infection. Acute possibly on chronic encephalopathy. Oropharyngeal dysphagia. Anemia. Decubitus ulcers Diabetes type 2. Hypertension. Leukocytosis. Anemia that is microcytic. Elevated serum transaminases. [id number] metabolic acidosis. Lactic acidosis. Severe protein-calorie malnutrition - bolus 500 mls IVNS then run at 75 mls/hr X 2.5 liters - begin vasopressin if still with MAP < 65 mmHg - begin oral metoprolol 12.5mg bid re: tachycardia and hypertension - prn IV metoprolol for pulse > 130/min - begin fentanyl gtt for pain control - continue airborne and contact COVID-19 precautions - COVID-19 test positive - complete anti-infectives and de-escalate per ID recommendations - continue wound care per WCT - sedation prn for target RASS 0 to -1 - continue to wean supplemental oxygen for target O2 sat's > 90% acutely - Daily SAT's and SBT assessment as tolerated - VAP bundle addressed - continue lung protective strategies - continue bronchodilators with pulmonary hygiene per RT - wean per pulmonary driven protocols otherwise - accuchecks with glycemic control per SSI (While critically ill target blood glucose of 140-180 mg/dL; avoid hypoglycemia) - to avoid benzodiazepine's, reduce the possibility of delirium - prn analgesia per CPOT score - Maintenance of sleep-wake cycle, avoid delirium - continue enteral nutritional support at goal rate as tolerated - G.I. & VTE prophylaxis - PT/OT/ROM exercises - continue mobility protocols for pressure ulcer prophylaxis - Monitor hemodynamics closely - continue other care per attending / other consultants - discharge planning ongoing concurrently .... Re-evaluate in am & prn CONDITION: CRITICAL PROGNOSIS: GUARDED CODE STATUS: FULL CODE The high probability of a clinically significant, sudden or life-threatening deterioration of the [respiratory & cardiovascular] system(s) required my full and direct attention, intervention and personal management. The aggregate critical care time was [32] minutes without overlap. Time includes spent on; [x] Data Review and interpretation [x] Patient assessment and monitoring of vital signs [x] Documentation [x] Medication orders and management Subjective Date of service: 07/13/19 Principal diagnosis: Bilateral pneumonia, severe sepsis with septic shock, enc ephalopathy Interval history: Patient is seen today for: Ac hypoxemic Resp failure on MVS; Severe sepsis with Shock; Ivan. Pneumonia; PUI coronavirus-19 infection. Seen and examined at bedside; 24hour events reviewed; nursing and respiratory care staff consulted; no adverse overnight events reported to me; resting in bed; remains on MVS; Objective Vital Signs - 12hr 07/13/19 07/13/19 07/13/19 01:30 02:00 02:30 Temperature Pulse Rate 120 H 122 H 120 H Pulse Rate [ From Monitor] Respiratory 25 H 25 H 25 H Rate Blood Pressure 106/55 97/58 96/55 O2 Sat by Pulse 94 92 93 Oximetry 07/13/19 07/13/19 07/13/19 03:00 03:30 04:00 Temperature 98.7 F Pulse Rate 122 H 122 H 125 H Pulse Rate [ 126 H From Monitor] Respiratory 25 H 25 H 25 H Rate Blood Pressure 92/47 97/54 92/52 O2 Sat by Pulse 93 92 92 Oximetry 07/13/19 07/13/19 07/13/19 04:30 04:33 05:00 Temperature Pulse Rate 125 H 124 H 127 H Pulse Rate [ From Monitor] Respiratory 25 H 25 H Rate Blood Pressure 96/52 96/52 85/50 O2 Sat by Pulse 92 93 90 Oximetry 07/13/19 07/13/19 07/13/19 05:31 06:00 06:30 Temperature Pulse Rate 132 H 126 H 126 H Pulse Rate [ From Monitor] Respiratory 24 25 H 10 L Rate Blood Pressure 87/57 88/53 96/55 O2 Sat by Pulse 91 91 Oximetry 07/13/19 07/13/19 07/13/19 07:00 07:30 07:53 Temperature Pulse Rate 127 H 129 H 130 H Pulse Rate [ From Monitor] Respiratory 16 18 Rate Blood Pressure 89/52 83/59 95/62 O2 Sat by Pulse 89 91 Oximetry 07/13/19 07/13/19 07/13/19 08:00 08:30 09:00 Temperature 99.7 F H Pulse Rate 130 H 129 H 132 H Pulse Rate [ 130 H From Monitor] Respiratory 26 H 20 Rate Blood Pressure 95/62 99/61 109/61 O2 Sat by Pulse 91 88 Oximetry 07/13/19 11:34 Temperature Pulse Rate 128 H Pulse Rate [ From Monitor] Respiratory Rate Blood Pressure 96/59 O2 Sat by Pulse 94 Oximetry Constitutional: appears uncomfortable, other (eelderly and chronically ill looking AAM, normocep[krystina;ic with mildly increased respiratory effort at rest) Eyes: non-icteric ENT: oropharynx moist, other (ETT 24 cm RUTH) Neck: supple, no lymphadenopathy, no JVD Effort: mildly labored Ascultation: Bilateral: diminished breath sounds, rhonchi Percussion: Bilateral: not dull Cardiovascular: regular rate and rhythm Gastrointestinal: normoactive bowel sounds, soft, non-tender, non-distended, other (+ PEG tube with mild TF leakage) Integumentary: decubitus ulcer Extremities: no cyanosis, no edema, pink and warm, pulses normal Neurologic: unable to assess Psychiatric: other (Unable to assess re: AMS) CBC and BMP: 07/13/19 06:50 07/13/19 06:50 ABG, PT/INR, D-dimer: ABG ABG pH 7.442 pH Units (7.350-7.450) 07/11/19 05:25 ABG pCO2 39.0 mm Hg 07/11/19 05:25 ABG pO2 83.6 mm Hg (80.0-90.0) 07/11/19 05:25 ABG O2 Saturation 97.0 % (95.0-99.0) 07/11/19 05:25 PT/INR, D-dimer PT 16.0 Sec. (12.2-14.9) H 07/03/19 22:20 INR 1.26 (0.87-1.13) H 07/03/19 22:20 D-Dimer 1142.18 ng/mlDDU (0-234) H 07/08/19 00:45 Abnormal lab findings: Abnormal Labs 07/03/19 07/03/19 07/03/19 19:57 21:10 21:13 WBC RBC Hgb Hct MCV MCH RDW Plt Count Seg Neuts % (Manual) Lymphocytes % (Manual) Seg Neutrophils # Man Lymphocytes # (Manual) PT INR D-Dimer ABG pH 7.238 L ABG pO2 210.8 H ABG HCO3 15.4 L ABG O2 Saturation 99.2 H ABG Base Excess -11.1 L ABG Hemoglobin 8.0 L Oxyhemoglobin Sodium 124 L Potassium Chloride 92.9 L Carbon Dioxide 10 L BUN 23 H Creatinine 0.5 L Glucose 118 H POC Glucose Lactic Acid Calcium 7.0 L Magnesium Iron TIBC Ferritin AST 70 H ALT 88 H Lactate Dehydrogenase Troponin T 0.032 H C-Reactive Protein Total Protein 5.0 L Albumin 1.8 L Cholesterol 47 L LDL Cholesterol Direct 25 L HDL Cholesterol 20 L Urine WBC (Auto) 12.0 H Vancomycin Trough Coronavirus (PCR) Crossmatch 07/03/19 07/03/19 07/03/19 22:20 22:20 22:20 WBC 30.5 H RBC 2.96 L Hgb 7.7 L Hct 23.9 L MCV 81 L MCH 26 L RDW 18.6 H Plt Count 459 H Seg Neuts % (Manual) 93.0 H Lymphocytes % (Manual) 0.5 L Seg Neutrophils # Man 28.4 H Lymphocytes # (Manual) 0.2 L PT 16.0 H INR 1.26 H D-Dimer ABG pH ABG pO2 ABG HCO3 ABG O2 Saturation ABG Base Excess ABG Hemoglobin Oxyhemoglobin Sodium Potassium Chloride Carbon Dioxide BUN Creatinine Glucose POC Glucose Lactic Acid 6.90 H* Calcium Magnesium Iron TIBC Ferritin AST ALT Lactate Dehydrogenase Troponin T C-Reactive Protein Total Protein Albumin Cholesterol LDL Cholesterol Direct HDL Cholesterol Urine WBC (Auto) Vancomycin Trough Coronavirus (PCR) Crossmatch 07/03/19 07/04/19 07/04/19 23:58 05:15 07:05 WBC 17.1 H RBC 3.22 L Hgb 8.3 L Hct 25.4 L MCV 79 L MCH 26 L RDW 18.6 H Plt Count Seg Neuts % (Manual) 74.0 H Lymphocytes % (Manual) 0 L Seg Neutrophils # Man 12.7 H Lymphocytes # (Manual) 0.0 L PT INR D-Dimer ABG pH 7.310 L ABG pO2 73.2 L ABG HCO3 17.8 L ABG O2 Saturation 93.8 L ABG Base Excess -7.7 L ABG Hemoglobin 9.6 L Oxyhemoglobin 92.3 L Sodium Potassium Chloride Carbon Dioxide BUN Creatinine Glucose POC Glucose Lactic Acid 7.10 H* Calcium Magnesium Iron TIBC Ferritin AST ALT Lactate Dehydrogenase Troponin T C-Reactive Protein Total Protein Albumin Cholesterol LDL Cholesterol Direct HDL Cholesterol Urine WBC (Auto) Vancomycin Trough Coronavirus (PCR) Crossmatch 07/04/19 07/04/19 07/04/19 07:05 07:05 07:05 WBC RBC Hgb Hct MCV MCH RDW Plt Count Seg Neuts % (Manual) Lymphocytes % (Manual) Seg Neutrophils # Man Lymphocytes # (Manual) PT INR D-Dimer ABG pH ABG pO2 ABG HCO3 ABG O2 Saturation ABG Base Excess ABG Hemoglobin Oxyhemoglobin Sodium 120 L Potassium 5.1 H Chloride 90.0 L Carbon Dioxide 14 L BUN 26 H Creatinine 0.5 L Glucose POC Glucose Lactic Acid 3.30 H* Calcium 8.0 L Magnesium Iron 9 L TIBC 97 L Ferritin AST 73 H ALT 91 H Lactate Dehydrogenase Troponin T C-Reactive Protein Total Protein 5.5 L Albumin 2.0 L Cholesterol LDL Cholesterol Direct HDL Cholesterol Urine WBC (Auto) Vancomycin Trough Coronavirus (PCR) Crossmatch 07/04/19 07/04/19 07/04/19 09:39 09:39 09:39 WBC RBC Hgb Hct MCV MCH RDW Plt Count Seg Neuts % (Manual) Lymphocytes % (Manual) Seg Neutrophils # Man Lymphocytes # (Manual) PT INR D-Dimer 1419.14 H ABG pH ABG pO2 ABG HCO3 ABG O2 Saturation ABG Base Excess ABG Hemoglobin Oxyhemoglobin Sodium Potassium Chloride Carbon Dioxide BUN Creatinine Glucose POC Glucose Lactic Acid Calcium Magnesium Iron TIBC Ferritin 1719.0 H AST ALT Lactate Dehydrogenase 234 H Troponin T C-Reactive Protein 15.50 H Total Protein Albumin Cholesterol LDL Cholesterol Direct HDL Cholesterol Urine WBC (Auto) Vancomycin Trough Coronavirus (PCR) Crossmatch 07/04/19 07/04/19 07/04/19 10:09 18:08 18:28 WBC RBC Hgb Hct MCV MCH RDW Plt Count Seg Neuts % (Manual) Lymphocytes % (Manual) Seg Neutrophils # Man Lymphocytes # (Manual) PT INR D-Dimer ABG pH ABG pO2 ABG HCO3 ABG O2 Saturation ABG Base Excess ABG Hemoglobin Oxyhemoglobin Sodium 117 L* Potassium 5.6 H Chloride 90.3 L Carbon Dioxide 16 L BUN 28 H Creatinine 0.5 L Glucose 58 L POC Glucose 65 L Lactic Acid Calcium 8.2 L Magnesium Iron TIBC Ferritin AST ALT Lactate Dehydrogenase Troponin T C-Reactive Protein Total Protein Albumin Cholesterol LDL Cholesterol Direct HDL Cholesterol Urine WBC (Auto) Vancomycin Trough Coronavirus (PCR) Positive A Crossmatch 07/04/19 07/04/19 07/04/19 23:45 Unknown Unknown WBC RBC Hgb Hct MCV MCH RDW Plt Count Seg Neuts % (Manual) Lymphocytes % (Manual) Seg Neutrophils # Man Lymphocytes # (Manual) PT INR D-Dimer 759.77 H ABG pH ABG pO2 ABG HCO3 ABG O2 Saturation ABG Base Excess ABG Hemoglobin Oxyhemoglobin Sodium 122 L Potassium Chloride 93.0 L Carbon Dioxide 19 L BUN 27 H Creatinine 0.5 L Glucose POC Glucose Lactic Acid Calcium 8.3 L Magnesium Iron TIBC Ferritin 1301.0 H AST ALT Lactate Dehydrogenase Troponin T C-Reactive Protein Total Protein Albumin Cholesterol LDL Cholesterol Direct HDL Cholesterol Urine WBC (Auto) Vancomycin Trough Coronavirus (PCR) Crossmatch 07/04/19 07/05/19 07/05/19 Unknown 03:20 04:00 WBC RBC Hgb Hct MCV MCH RDW Plt Count Seg Neuts % (Manual) Lymphocytes % (Manual) Seg Neutrophils # Man Lymphocytes # (Manual) PT INR D-Dimer ABG pH ABG pO2 60.6 L ABG HCO3 ABG O2 Saturation 93.5 L ABG Base Excess -2.4 L ABG Hemoglobin 6.9 L Oxyhemoglobin 92.0 L Sodium 125 L Potassium Chloride 92.6 L Carbon Dioxide 19 L BUN 24 H Creatinine 0.6 L Glucose POC Glucose Lactic Acid Calcium 8.2 L Magnesium 1.40 L Iron TIBC Ferritin AST ALT Lactate Dehydrogenase 242 H Troponin T C-Reactive Protein 16.70 H Total Protein Albumin Cholesterol LDL Cholesterol Direct HDL Cholesterol Urine WBC (Auto) Vancomycin Trough Coronavirus (PCR) Crossmatch 07/05/19 07/05/19 07/05/19 10:11 16:15 17:54 WBC 46.4 H* RBC 2.77 L Hgb 7.2 L Hct 21.9 L MCV 79 L MCH 26 L RDW 19.0 H Plt Count Seg Neuts % (Manual) 82.0 H Lymphocytes % (Manual) 1.0 L Seg Neutrophils # Man 38.0 H Lymphocytes # (Manual) 0.5 L PT INR D-Dimer ABG pH ABG pO2 ABG HCO3 ABG O2 Saturation ABG Base Excess ABG Hemoglobin Oxyhemoglobin Sodium Potassium Chloride Carbon Dioxide BUN Creatinine Glucose POC Glucose 69 L Lactic Acid Calcium Magnesium Iron TIBC Ferritin AST ALT Lactate Dehydrogenase Troponin T C-Reactive Protein Total Protein Albumin Cholesterol LDL Cholesterol Direct HDL Cholesterol Urine WBC (Auto) Vancomycin Trough 23.2 H Coronavirus (PCR) Crossmatch 07/05/19 07/06/19 07/06/19 19:58 00:27 00:27 WBC RBC Hgb Hct MCV MCH RDW Plt Count Seg Neuts % (Manual) Lymphocytes % (Manual) Seg Neutrophils # Man Lymphocytes # (Manual) PT INR D-Dimer 1333.22 H ABG pH ABG pO2 ABG HCO3 ABG O2 Saturation ABG Base Excess ABG Hemoglobin Oxyhemoglobin Sodium 127 L Potassium Chloride Carbon Dioxide BUN Creatinine Glucose POC Glucose Lactic Acid Calcium Magnesium Iron TIBC Ferritin 977.1 H AST ALT Lactate Dehydrogenase Troponin T C-Reactive Protein Total Protein Albumin Cholesterol LDL Cholesterol Direct HDL Cholesterol Urine WBC (Auto) Vancomycin Trough Coronavirus (PCR) Crossmatch 07/06/19 07/06/19 07/06/19 00:27 02:00 02:56 WBC RBC Hgb Hct MCV MCH RDW Plt Count Seg Neuts % (Manual) Lymphocytes % (Manual) Seg Neutrophils # Man Lymphocytes # (Manual) PT INR D-Dimer ABG pH ABG pO2 70.3 L ABG HCO3 ABG O2 Saturation 94.8 L ABG Base Excess ABG Hemoglobin 8.0 L Oxyhemoglobin 93.2 L Sodium Potassium Chloride Carbon Dioxide BUN Creatinine Glucose POC Glucose 117 H Lactic Acid Calcium Magnesium Iron TIBC Ferritin AST ALT Lactate Dehydrogenase 236 H Troponin T C-Reactive Protein 22.90 H Total Protein Albumin Cholesterol LDL Cholesterol Direct HDL Cholesterol Urine WBC (Auto) Vancomycin Trough Coronavirus (PCR) Crossmatch 07/06/19 07/06/19 07/06/19 03:49 03:49 07:40 WBC 38.8 H RBC 2.51 L Hgb 6.7 L Hct 19.9 L* MCV 79 L MCH 27 L RDW 19.2 H Plt Count Seg Neuts % (Manual) 90.5 H Lymphocytes % (Manual) 1.0 L Seg Neutrophils # Man 35.1 H Lymphocytes # (Manual) 0.4 L PT INR D-Dimer ABG pH ABG pO2 ABG HCO3 ABG O2 Saturation ABG Base Excess ABG Hemoglobin Oxyhemoglobin Sodium 131 L Potassium Chloride 96.9 L Carbon Dioxide 18 L BUN 23 H Creatinine 0.5 L Glucose POC Glucose Lactic Acid Calcium 8.0 L Magnesium Iron TIBC Ferritin AST ALT Lactate Dehydrogenase Troponin T C-Reactive Protein Total Protein Albumin Cholesterol LDL Cholesterol Direct HDL Cholesterol Urine WBC (Auto) Vancomycin Trough Coronavirus (PCR) Crossmatch See Detail 07/06/19 07/06/19 07/06/19 12:38 14:39 20:00 WBC RBC Hgb Hct MCV MCH RDW Plt Count Seg Neuts % (Manual) Lymphocytes % (Manual) Seg Neutrophils # Man Lymphocytes # (Manual) PT INR D-Dimer ABG pH ABG pO2 ABG HCO3 ABG O2 Saturation ABG Base Excess ABG Hemoglobin Oxyhemoglobin Sodium Potassium Chloride Carbon Dioxide BUN Creatinine Glucose POC Glucose 112 H 111 H 140 H Lactic Acid Calcium Magnesium Iron TIBC Ferritin AST ALT Lactate Dehydrogenase Troponin T C-Reactive Protein Total Protein Albumin Cholesterol LDL Cholesterol Direct HDL Cholesterol Urine WBC (Auto) Vancomycin Trough Coronavirus (PCR) Crossmatch 07/06/19 07/06/19 07/07/19 22:43 22:56 02:20 WBC RBC Hgb 7.9 L Hct 23.1 L MCV MCH RDW Plt Count Seg Neuts % (Manual) Lymphocytes % (Manual) Seg Neutrophils # Man Lymphocytes # (Manual) PT INR D-Dimer ABG pH ABG pO2 ABG HCO3 ABG O2 Saturation ABG Base Excess ABG Hemoglobin Oxyhemoglobin Sodium Potassium Chloride Carbon Dioxide BUN Creatinine Glucose POC Glucose 122 H 149 H Lactic Acid Calcium Magnesium Iron TIBC Ferritin AST ALT Lactate Dehydrogenase Troponin T C-Reactive Protein Total Protein Albumin Cholesterol LDL Cholesterol Direct HDL Cholesterol Urine WBC (Auto) Vancomycin Trough Coronavirus (PCR) Crossmatch 07/07/19 07/07/19 07/07/19 04:35 05:27 05:34 WBC 23.1 H RBC 3.00 L Hgb 8.1 L Hct 24.2 L MCV 81 L MCH 27 L RDW 20.6 H Plt Count Seg Neuts % (Manual) 90.0 H Lymphocytes % (Manual) 2.0 L Seg Neutrophils # Man 20.8 H Lymphocytes # (Manual) 0.5 L PT INR D-Dimer ABG pH ABG pO2 65.8 L ABG HCO3 ABG O2 Saturation 92.2 L ABG Base Excess ABG Hemoglobin 8.3 L Oxyhemoglobin 90.6 L Sodium Potassium Chloride Carbon Dioxide BUN Creatinine Glucose POC Glucose 132 H Lactic Acid Calcium Magnesium Iron TIBC Ferritin AST ALT Lactate Dehydrogenase Troponin T C-Reactive Protein Total Protein Albumin Cholesterol LDL Cholesterol Direct HDL Cholesterol Urine WBC (Auto) Vancomycin Trough Coronavirus (PCR) Crossmatch 07/07/19 07/07/19 07/07/19 05:34 11:50 15:58 WBC RBC Hgb 8.1 L Hct 24.2 L MCV MCH RDW Plt Count Seg Neuts % (Manual) Lymphocytes % (Manual) Seg Neutrophils # Man Lymphocytes # (Manual) PT INR D-Dimer ABG pH ABG pO2 ABG HCO3 ABG O2 Saturation ABG Base Excess ABG Hemoglobin Oxyhemoglobin Sodium 135 L Potassium 3.3 L Chloride Carbon Dioxide 20 L BUN 27 H Creatinine 0.6 L Glucose 121 H POC Glucose 123 H Lactic Acid Calcium 8.0 L Magnesium Iron TIBC Ferritin AST ALT Lactate Dehydrogenase Troponin T C-Reactive Protein Total Protein Albumin Cholesterol LDL Cholesterol Direct HDL Cholesterol Urine WBC (Auto) Vancomycin Trough Coronavirus (PCR) Crossmatch 07/07/19 07/07/19 07/07/19 17:42 22:00 23:53 WBC RBC Hgb 8.0 L Hct 23.4 L MCV MCH RDW Plt Count Seg Neuts % (Manual) Lymphocytes % (Manual) Seg Neutrophils # Man Lymphocytes # (Manual) PT INR D-Dimer ABG pH ABG pO2 ABG HCO3 ABG O2 Saturation ABG Base Excess ABG Hemoglobin Oxyhemoglobin Sodium Potassium Chloride Carbon Dioxide BUN Creatinine Glucose POC Glucose 107 H 117 H Lactic Acid Calcium Magnesium Iron TIBC Ferritin AST ALT Lactate Dehydrogenase Troponin T C-Reactive Protein Total Protein Albumin Cholesterol LDL Cholesterol Direct HDL Cholesterol Urine WBC (Auto) Vancomycin Trough Coronavirus (PCR) Crossmatch 07/08/19 07/08/19 07/08/19 00:45 00:45 00:45 WBC RBC Hgb Hct MCV MCH RDW Plt Count Seg Neuts % (Manual) Lymphocytes % (Manual) Seg Neutrophils # Man Lymphocytes # (Manual) PT INR D-Dimer 1142.18 H ABG pH ABG pO2 ABG HCO3 ABG O2 Saturation ABG Base Excess ABG Hemoglobin Oxyhemoglobin Sodium Potassium Chloride Carbon Dioxide BUN Creatinine Glucose POC Glucose Lactic Acid Calcium Magnesium Iron TIBC Ferritin 839.0 H AST ALT Lactate Dehydrogenase 253 H Troponin T C-Reactive Protein 18.90 H Total Protein Albumin Cholesterol LDL Cholesterol Direct HDL Cholesterol Urine WBC (Auto) Vancomycin Trough Coronavirus (PCR) Crossmatch 07/08/19 07/08/19 07/08/19 04:30 05:11 12:02 WBC RBC Hgb Hct MCV MCH RDW Plt Count Seg Neuts % (Manual) Lymphocytes % (Manual) Seg Neutrophils # Man Lymphocytes # (Manual) PT INR D-Dimer ABG pH ABG pO2 66.0 L ABG HCO3 ABG O2 Saturation 92.3 L ABG Base Excess ABG Hemoglobin 7.7 L Oxyhemoglobin 90.7 L Sodium Potassium Chloride Carbon Dioxide BUN Creatinine Glucose POC Glucose 108 H 153 H Lactic Acid Calcium Magnesium Iron TIBC Ferritin AST ALT Lactate Dehydrogenase Troponin T C-Reactive Protein Total Protein Albumin Cholesterol LDL Cholesterol Direct HDL Cholesterol Urine WBC (Auto) Vancomycin Trough Coronavirus (PCR) Crossmatch 07/08/19 07/08/19 07/08/19 16:15 18:22 23:35 WBC RBC Hgb Hct MCV MCH RDW Plt Count Seg Neuts % (Manual) Lymphocytes % (Manual) Seg Neutrophils # Man Lymphocytes # (Manual) PT INR D-Dimer ABG pH ABG pO2 ABG HCO3 ABG O2 Saturation ABG Base Excess ABG Hemoglobin Oxyhemoglobin Sodium 134 L Potassium 3.3 L Chloride Carbon Dioxide 21 L BUN 27 H Creatinine 0.6 L Glucose 146 H POC Glucose 134 H 133 H Lactic Acid Calcium Magnesium Iron TIBC Ferritin AST ALT Lactate Dehydrogenase Troponin T C-Reactive Protein Total Protein Albumin Cholesterol LDL Cholesterol Direct HDL Cholesterol Urine WBC (Auto) Vancomycin Trough Coronavirus (PCR) Crossmatch 07/09/19 07/09/19 07/09/19 04:30 04:30 05:00 WBC 18.9 H RBC 2.77 L Hgb 7.4 L Hct 22.8 L MCV 82 L MCH 27 L RDW 20.9 H Plt Count 130 L Seg Neuts % (Manual) 84.0 H Lymphocytes % (Manual) 0 L Seg Neutrophils # Man 15.9 H Lymphocytes # (Manual) 0.0 L PT INR D-Dimer ABG pH ABG pO2 ABG HCO3 ABG O2 Saturation ABG Base Excess ABG Hemoglobin Oxyhemoglobin Sodium Potassium 3.1 L Chloride Carbon Dioxide BUN 26 H Creatinine 0.5 L Glucose 125 H POC Glucose 155 H Lactic Acid Calcium Magnesium Iron TIBC Ferritin AST ALT Lactate Dehydrogenase Troponin T C-Reactive Protein Total Protein Albumin Cholesterol LDL Cholesterol Direct HDL Cholesterol Urine WBC (Auto) Vancomycin Trough Coronavirus (PCR) Crossmatch 07/09/19 07/09/19 07/09/19 05:55 12:22 17:50 WBC RBC Hgb Hct MCV MCH RDW Plt Count Seg Neuts % (Manual) Lymphocytes % (Manual) Seg Neutrophils # Man Lymphocytes # (Manual) PT INR D-Dimer ABG pH ABG pO2 62.8 L ABG HCO3 ABG O2 Saturation ABG Base Excess ABG Hemoglobin 6.1 L Oxyhemoglobin 93.9 L Sodium Potassium Chloride Carbon Dioxide BUN Creatinine Glucose POC Glucose 115 H 133 H Lactic Acid Calcium Magnesium Iron TIBC Ferritin AST ALT Lactate Dehydrogenase Troponin T C-Reactive Protein Total Protein Albumin Cholesterol LDL Cholesterol Direct HDL Cholesterol Urine WBC (Auto) Vancomycin Trough Coronavirus (PCR) Crossmatch 07/10/19 07/10/19 07/10/19 00:38 04:00 04:00 WBC RBC Hgb Hct MCV MCH RDW Plt Count Seg Neuts % (Manual) Lymphocytes % (Manual) Seg Neutrophils # Man Lymphocytes # (Manual) PT INR D-Dimer ABG pH ABG pO2 ABG HCO3 ABG O2 Saturation ABG Base Excess ABG Hemoglobin Oxyhemoglobin Sodium Potassium Chloride 107.9 H Carbon Dioxide BUN 26 H Creatinine 0.4 L Glucose 137 H POC Glucose 122 H Lactic Acid Calcium Magnesium 1.50 L Iron TIBC Ferritin AST ALT Lactate Dehydrogenase 277 H Troponin T C-Reactive Protein 15.10 H Total Protein Albumin Cholesterol LDL Cholesterol Direct HDL Cholesterol Urine WBC (Auto) Vancomycin Trough Coronavirus (PCR) Crossmatch 07/10/19 07/10/19 07/10/19 04:07 05:21 17:25 WBC RBC Hgb Hct MCV MCH RDW Plt Count Seg Neuts % (Manual) Lymphocytes % (Manual) Seg Neutrophils # Man Lymphocytes # (Manual) PT INR D-Dimer ABG pH ABG pO2 65.6 L ABG HCO3 26.3 H ABG O2 Saturation ABG Base Excess ABG Hemoglobin 6.7 L Oxyhemoglobin Sodium Potassium Chloride Carbon Dioxide BUN Creatinine Glucose POC Glucose 144 H 113 H Lactic Acid Calcium Magnesium Iron TIBC Ferritin AST ALT Lactate Dehydrogenase Troponin T C-Reactive Protein Total Protein Albumin Cholesterol LDL Cholesterol Direct HDL Cholesterol Urine WBC (Auto) Vancomycin Trough Coronavirus (PCR) Crossmatch 07/11/19 07/11/19 07/11/19 00:07 05:14 05:25 WBC RBC Hgb Hct MCV MCH RDW Plt Count Seg Neuts % (Manual) Lymphocytes % (Manual) Seg Neutrophils # Man Lymphocytes # (Manual) PT INR D-Dimer ABG pH ABG pO2 ABG HCO3 ABG O2 Saturation ABG Base Excess ABG Hemoglobin 5.8 L Oxyhemoglobin Sodium Potassium Chloride 108.0 H Carbon Dioxide BUN 26 H Creatinine 0.4 L Glucose 110 H POC Glucose 121 H Lactic Acid Calcium Magnesium Iron TIBC Ferritin AST ALT Lactate Dehydrogenase Troponin T C-Reactive Protein Total Protein Albumin Cholesterol LDL Cholesterol Direct HDL Cholesterol Urine WBC (Auto) Vancomycin Trough Coronavirus (PCR) Crossmatch 07/11/19 07/11/19 07/11/19 12:27 18:00 23:42 WBC RBC Hgb Hct MCV MCH RDW Plt Count Seg Neuts % (Manual) Lymphocytes % (Manual) Seg Neutrophils # Man Lymphocytes # (Manual) PT INR D-Dimer ABG pH ABG pO2 ABG HCO3 ABG O2 Saturation ABG Base Excess ABG Hemoglobin Oxyhemoglobin Sodium Potassium Chloride Carbon Dioxide BUN Creatinine Glucose POC Glucose 158 H 141 H 142 H Lactic Acid Calcium Magnesium Iron TIBC Ferritin AST ALT Lactate Dehydrogenase Troponin T C-Reactive Protein Total Protein Albumin Cholesterol LDL Cholesterol Direct HDL Cholesterol Urine WBC (Auto) Vancomycin Trough Coronavirus (PCR) Crossmatch 07/12/19 07/12/19 07/12/19 04:46 04:46 05:23 WBC 23.6 H RBC 2.51 L Hgb 6.7 L Hct 20.8 L MCV 83 L MCH 27 L RDW 20.3 H Plt Count Seg Neuts % (Manual) 94.0 H Lymphocytes % (Manual) 4.0 L Seg Neutrophils # Man 22.2 H Lymphocytes # (Manual) 0.9 L PT INR D-Dimer ABG pH ABG pO2 ABG HCO3 ABG O2 Saturation ABG Base Excess ABG Hemoglobin Oxyhemoglobin Sodium Potassium Chloride 107.1 H Carbon Dioxide BUN 25 H Creatinine 0.4 L Glucose 122 H POC Glucose 118 H Lactic Acid Calcium Magnesium Iron TIBC Ferritin AST ALT Lactate Dehydrogenase Troponin T C-Reactive Protein Total Protein Albumin Cholesterol LDL Cholesterol Direct HDL Cholesterol Urine WBC (Auto) Vancomycin Trough Coronavirus (PCR) Crossmatch 07/12/19 07/12/19 07/12/19 08:49 11:36 18:15 WBC RBC Hgb Hct MCV MCH RDW Plt Count Seg Neuts % (Manual) Lymphocytes % (Manual) Seg Neutrophils # Man Lymphocytes # (Manual) PT INR D-Dimer ABG pH ABG pO2 ABG HCO3 ABG O2 Saturation ABG Base Excess ABG Hemoglobin Oxyhemoglobin Sodium Potassium Chloride Carbon Dioxide BUN Creatinine Glucose POC Glucose 124 H 110 H Lactic Acid Calcium Magnesium Iron TIBC Ferritin AST ALT Lactate Dehydrogenase Troponin T C-Reactive Protein Total Protein Albumin Cholesterol LDL Cholesterol Direct HDL Cholesterol Urine WBC (Auto) Vancomycin Trough Coronavirus (PCR) Crossmatch See Detail 07/12/19 07/13/19 07/13/19 23:16 05:26 06:50 WBC 23.9 H RBC 2.58 L Hgb 6.9 L Hct 21.5 L MCV 83 L MCH 27 L RDW 19.0 H Plt Count Seg Neuts % (Manual) 96.0 H Lymphocytes % (Manual) 3.0 L Seg Neutrophils # Man 22.9 H Lymphocytes # (Manual) 0.7 L PT INR D-Dimer ABG pH ABG pO2 ABG HCO3 ABG O2 Saturation ABG Base Excess ABG Hemoglobin Oxyhemoglobin Sodium Potassium Chloride Carbon Dioxide BUN Creatinine Glucose POC Glucose 108 H 126 H Lactic Acid Calcium Magnesium Iron TIBC Ferritin AST ALT Lactate Dehydrogenase Troponin T C-Reactive Protein Total Protein Albumin Cholesterol LDL Cholesterol Direct HDL Cholesterol Urine WBC (Auto) Vancomycin Trough Coronavirus (PCR) Crossmatch 07/13/19 07/13/19 06:50 12:38 WBC RBC Hgb Hct MCV MCH RDW Plt Count Seg Neuts % (Manual) Lymphocytes % (Manual) Seg Neutrophils # Man Lymphocytes # (Manual) PT INR D-Dimer ABG pH ABG pO2 ABG HCO3 ABG O2 Saturation ABG Base Excess ABG Hemoglobin Oxyhemoglobin Sodium Potassium Chloride Carbon Dioxide BUN 33 H Creatinine 0.5 L Glucose 136 H POC Glucose 164 H Lactic Acid Calcium Magnesium Iron TIBC Ferritin AST ALT Lactate Dehydrogenase Troponin T C-Reactive Protein Total Protein Albumin Cholesterol LDL Cholesterol Direct HDL Cholesterol Urine WBC (Auto) Vancomycin Trough Coronavirus (PCR) Crossmatch Allied health notes reviewed: nursing
--- NOTE | 2019-07-13 14:07 | Progress Note ---
Assessment and Plan Cultures: 07/03/2019 urine culture: No growth 07/03/2019 Tracheal aspirate: E.coli A/P: 69-year-old male with CVA, hypertension, dementia, schizophrenia, alcohol use disorder was admitted to the emergency room after being brought in by EMS with progressive shortness of breath and unresponsiveness. He was noted to have agonal breathing and a faint pulse requiring CPR. It seems patient was on hospice recently. #Shock, likely septic: Lactic acidosis. Remains off pressors. #Severe COVID-19 disease and pneumonia: Elevated markers. Completed Plaquenil. Completed Ceftriaxone for treatment E.coli in tracheal aspirate. #Acute respiratory failure: on mechanical ventilation. #Transaminitis: Likely from COVID-19, shock #Leucocytosis: ?reactive from above. Recs: continue supportive care for COVID-19 agree with DNR. Poor prognosis. It seems patient was on hospice recently Yanna Calzada MD, FACP [facility] C: [phone] O: [phone] F: [phone] Subjective Date of service: 07/13/19 Principal diagnosis: Bilateral pneumonia, severe sepsis with septic shock, encephalopathy Interval history: Low grade fever. Remains intubated, on the vent. Objective - Exam Narrative Exam: Physical Exam (reviewed in chart due to PPE conservation) Constitutional: intubated, sedated, on the vent Head, Ears, Nose: normocephalic, atraumatic Eyes: limited due to PPE conservation strategy Neck: intubated Oral: intubated Cardiovascular: limited due to PPE conservation strategy Respiratory: limited due to PPE conservation strategy GI: limited due to PPE conservation strategy Musculoskeletal: limited due to PPE conservation strategy Skin: limited due to PPE conservation strategy Hem/Lymphatic: limited due to PPE conservation strategy Psych: no agitation Neurological: sedated, intubated, on the vent, exam limited - Constitutional Vitals: Vital Signs Temp Pulse Resp BP Pulse Ox 99.7 F H 128 H 20 96/59 94 07/13/19 08:00 07/13/19 11:34 07/13/19 08:30 07/13/19 11:34 07/13/19 11:34 Temperature -Last 24 Hours Temperature 99.7 F Temperature 98.7 F Temperature 99.7 F Temperature 98.8 F Temperature 98.5 F - Labs CBC & Chem 7: 07/13/19 06:50 07/13/19 06:50 Labs: Abnormal lab results 07/12/19 07/12/19 07/13/19 Range/Units 18:15 23:16 05:26 WBC (4.5-11.0) K/mm3 RBC (3.65-5.03) M/mm3 Hgb (11.8-15.2) gm/dl Hct (35.5-45.6) % MCV (84-94) fl MCH (28-32) pg RDW (13.2-15.2) % Seg Neuts % (Manual) (40.0-70.0) % Lymphocytes % (Manual) (13.4-35.0) % Seg Neutrophils # Man (1.8-7.7) K/mm3 Lymphocytes # (Manual) (1.2-5.4) K/mm3 BUN (9-20) mg/dL Creatinine (0.8-1.5) mg/dL Glucose (75-100) mg/dL POC Glucose 110 H 108 H 126 H (70-105) 07/13/19 07/13/19 07/13/19 Range/Units 06:50 06:50 12:38 WBC 23.9 H (4.5-11.0) K/mm3 RBC 2.58 L (3.65-5.03) M/mm3 Hgb 6.9 L (11.8-15.2) gm/dl Hct 21.5 L (35.5-45.6) % MCV 83 L (84-94) fl MCH 27 L (28-32) pg RDW 19.0 H (13.2-15.2) % Seg Neuts % (Manual) 96.0 H (40.0-70.0) % Lymphocytes % (Manual) 3.0 L (13.4-35.0) % Seg Neutrophils # Man 22.9 H (1.8-7.7) K/mm3 Lymphocytes # (Manual) 0.7 L (1.2-5.4) K/mm3 BUN 33 H (9-20) mg/dL Creatinine 0.5 L (0.8-1.5) mg/dL Glucose 136 H (75-100) mg/dL POC Glucose 164 H (70-105)
[2019-07-13] MEDS: SODIUM CHLORIDE 0.9% 1000 ML 1,000 ML IV SCH (16:22)
[2019-07-13 19:12] LABS: ABG HCO3 25.4 mmol/L (20.0-26.0); ABG Methemoglobin 0.4 % (0.0-1.5); ABG Oxygen Saturation 88.7 % (95.0-99.0); ABG PCO2 45.3 mm Hg; ABG PH 7.368 pH Units (7.350-7.450); ABG PO2 58.1 mm Hg (80.0-90.0)
[2019-07-14] MEDS: SODIUM CHLORIDE 0.9% 1000 ML 1,000 ML IV SCH ×2 (00:11→09:40)
[2019-07-14] MEDS: SODIUM HYPOCHLORITE, DAKIN'S 1/2 STRENGTH (0.25%) 473 ML TOPICAL SOLN TP SCH ×3 (05:21→10:08)
[2019-07-14 05:45] LABS: Hematocrit 21.1 % (35.5-45.6); Hemoglobin 6.6 gm/dl (11.8-15.2); Mean Corpuscular HGB Conc 31 % (32-34); Mean Corpuscular Volume 86 fl (84-94); Platelet Count 305 K/mm3 (140-440); Red Blood Count 2.45 M/mm3 (3.65-5.03); Red Cell Distribution Width 19.2 % (13.2-15.2)
[2019-07-14 05:56] LABS: ABG Base Excess -2.7 mmol/L (-2.0-3.0); ABG HCO3 24.7 mmol/L (20.0-26.0); ABG Methemoglobin 0.3 % (0.0-1.5); ABG Oxygen Saturation 89.3 % (95.0-99.0); ABG PCO2 60.4 mm Hg; ABG PH 7.23 pH Units (7.350-7.450); ABG PO2 72.1 mm Hg (80.0-90.0)
[2019-07-14 06:00] LABS: BUN/Creatinine Ratio 45; Blood Urea Nitrogen 45 mg/dL (9-20); Calcium 8.4 mg/dL (8.4-10.2); Hemolysis Index 0
[2019-07-14 06:34] LABS: Basophils % (Manual) 0 % (0.0-1.8); Eosinophils % (Manual) 0 % (0.0-4.3); Total Cells Counted 100
[2019-07-14 06:35] LABS: Anisocytosis 1+; Burr Cells Rare; Hypochromasia 2+; Ovalocytes Rare
[2019-07-14 06:36] LABS: Platelet Estimate Consistent w Auto
[2019-07-14] MEDS: INSULIN LISPRO 100 UNIT/ML SUB-Q SCH ×3 (07:15→18:39)
--- NOTE | 2019-07-14 08:51 | Progress Note ---
Assessment and Plan Assessment and plan: COVid positive- Acute respiratory Failure with Hypoxia - Due to bilateral PNA with COVID 19 infection. -pulmonary critical care following Continue ventilatory support, wean as tolerated and extubate --Bilateral PNA with severe sepsis - see above -ID following, completed Plaquenil and cefepime --Acute metabolic encephalopathy -Likely due to respiratory arrest and severe sepsis - Hold Hyoscamine. monitor Troponins. -CT head unremarkable --Septic shock: Lactic acidosis IV fluids, vasopressors as needed --COPD with exacerbation -Likely due to COVID-19 pneumonia -Continue scheduled nebs --Anemia, Microcytic - check iron, TIBC - monitor H&H, transfuse one unit --Pressure Ulcers - buttocks, right lateral foot area - present upon admission - wound care consulted --Hyponatremia, continue IV fluid --DM type 2 - Accuchecks with sliding scale insulin --HTN Essential, now hypotensive -relatively low BP - on IVF. monitor --Seizure D/o/CVA/immobility/BIpolar D/o/SCZ chronic medical conditions - continue meds --Severe PCM, TF for now, dietary following patient is DNR- Called and verified information Guarded prognosis, patient is critically ill 07/04: COVID +ve, start on plaquinil, called no answer 07/05: transfuse one unit PRBC, Hb dropped to ~6, called and updated 07/06; H&H stable, serum chemistry improved. On mechanical ventilation with high inflammatory markers. Continue Plaquenil and empiric antibiotics. ID following, prognosis remains guarded and extremely poor. 07/07: On mechanical ventilation with high inflammatory markers. Continue Plaquenil and empiric antibiotics. ID following, prognosis remains guarded and extremely poor. 07/08: Called today and verified the CODE STATUS. Patient remains DNR. He is still intubated, with poor prognosis. Continue to follow inflammatory markers. 07/09 wean off from vent as tolerated, completed empiric antibiotic and Plaquenil 07/10 wean off from vent as tolerated. poor prognosis 07/11 hb 6.7 today, transfuse one PRBC. wean off from vent as tolerated. poor prognosis 07/12 remains critically on vent. Hb 6.9 07/13 Hb dropped to 6.6, transfuse 1 unit of PRBC, remains on vent critically ill Hypotensive, fluid bolus, if no improvement start Levophed The high probability of a clinically significant, sudden or life threatening deterioration of the [respiratory, CVS, FLOW SPECIALIST] system(s) required my full and direct attention, intervention and personal management. The aggregate critical care time was [40] minutes. This time is in addition to time spent performing reported procedures but includes the following: [x] Data Review and interpretation [x] Patient assessment and monitoring of vital signs [x] Documentation [x] Medication orders and management Critical care time 40 minutes History Interval history: Patient seen and examined at the bedside in ICU this morning COVID 19 isolation protocols observed COVID-19 PPE protocols observed Patient remains intubated on vent Critically ill looking, in moderate distress Vital signs reviewed Hospitalist Physical - Constitutional Vitals: Temp Pulse Resp BP Pulse Ox 98.9 F 114 H 17 93/56 96 07/14/19 03:32 07/14/19 08:30 07/14/19 08:30 07/14/19 08:30 07/14/19 08:30 General appearance: Present: mild distress, well-nourished, other (Orally intubated on vent) - EENT Eyes: Present: PERRL. Absent: scleral icterus - Neck Neck: Present: supple, normal ROM - Respiratory Respiratory effort: normal Respiratory: bilateral: diminished, rhonchi, negative: rales, wheezing - Cardiovascular Rhythm: regular Heart Sounds: Present: S1 & S2 - Extremities Extremities: no ischemia, No edema - Abdominal General gastrointestinal: soft, non-tender, non-distended, normal bowel sounds - Integumentary Integumentary: Present: clear, warm - Psychiatric Psychiatric: other (Intubated on vent) - Neurologic Neurologic: other (Intubated on vent) Results - Labs CBC & Chem 7: 07/14/19 04:40 07/14/19 04:40 Labs: Laboratory Last Values WBC 22.9 K/mm3 (4.5-11.0) H 07/14/19 04:40 RBC 2.45 M/mm3 (3.65-5.03) L 07/14/19 04:40 Hgb 6.6 gm/dl (11.8-15.2) L 07/14/19 04:40 Hct 21.1 % (35.5-45.6) L 07/14/19 04:40 MCV 86 fl (84-94) 07/14/19 04:40 MCH 27 pg (28-32) L 07/14/19 04:40 MCHC 31 % (32-34) L 07/14/19 04:40 RDW 19.2 % (13.2-15.2) H 07/14/19 04:40 Plt Count 305 K/mm3 (140-440) 07/14/19 04:40 Lymph % (Auto) [employer] 07/03/19 22:20 [place] % (Auto) [employer] 07/03/19 22:20 Eos % (Auto) [employer] 07/03/19 22:20 Baso % (Auto) [employer] 07/03/19 22:20 Lymph # [employer] 07/03/19 22:20 Murray # [employer] 07/03/19 22:20 Eos # [employer] 07/03/19 22:20 Baso # [employer] 07/03/19 22:20 Add Manual Diff Complete 07/14/19 04:40 Total Counted 100 07/14/19 04:40 Seg Neutrophils % [employer] 07/14/19 04:40 Seg Neuts % (Manual) 91.0 % (40.0-70.0) H 07/14/19 04:40 Band Neutrophils % 0 % 07/14/19 04:40 Lymphocytes % (Manual) 7.0 % (13.4-35.0) L 07/14/19 04:40 Reactive Lymphs % (Man) 0 % 07/14/19 04:40 Monocytes % (Manual) 2.0 % (0.0-7.3) 07/14/19 04:40 Eosinophils % (Manual) 0 % (0.0-4.3) 07/14/19 04:40 Basophils % (Manual) 0 % (0.0-1.8) 07/14/19 04:40 Metamyelocytes % 0 % 07/14/19 04:40 Myelocytes % 0 % 07/14/19 04:40 Promyelocytes % 0 % 07/14/19 04:40 Blast Cells % 0 % 07/14/19 04:40 Nucleated RBC % Not Reportable 07/14/19 04:40 Seg Neutrophils # [employer] 07/03/19 22:20 Seg Neutrophils # Man 20.8 K/mm3 (1.8-7.7) H 07/14/19 04:40 Band Neutrophils # 0.0 K/mm3 07/14/19 04:40 Lymphocytes # (Manual) 1.6 K/mm3 (1.2-5.4) 07/14/19 04:40 Abs React Lymphs (Man) 0.0 K/mm3 07/14/19 04:40 Monocytes # (Manual) 0.5 K/mm3 (0.0-0.8) 07/14/19 04:40 Eosinophils # (Manual) 0.0 K/mm3 (0.0-0.4) 07/14/19 04:40 Basophils # (Manual) 0.0 K/mm3 (0.0-0.1) 07/14/19 04:40 Metamyelocytes # 0.0 K/mm3 07/14/19 04:40 Myelocytes # 0.0 K/mm3 07/14/19 04:40 Promyelocytes # 0.0 K/mm3 07/14/19 04:40 Blast Cells # 0.0 K/mm3 07/14/19 04:40 WBC Morphology Not Reportable 07/14/19 04:40 Hypersegmented Neuts Not Reportable 07/14/19 04:40 Hyposegmented Neuts Not Reportable 07/14/19 04:40 Hypogranular Neuts Not Reportable 07/14/19 04:40 Smudge Cells Not Reportable 07/14/19 04:40 Toxic Granulation Not Reportable 07/14/19 04:40 Toxic Vacuolation Not Reportable 07/14/19 04:40 Dohle Bodies Not Reportable 07/14/19 04:40 Pelger-Huet Anomaly Not Reportable 07/14/19 04:40 Mendy Rods Not Reportable 07/14/19 04:40 Platelet Estimate Consistent w auto 07/14/19 04:40 Clumped Platelets Not Reportable 07/14/19 04:40 Plt Clumps, EDTA Not Reportable 07/14/19 04:40 Large Platelets Not Reportable 07/14/19 04:40 Giant Platelets Not Reportable 07/14/19 04:40 Platelet Satelliting Not Reportable 07/14/19 04:40 Plt Morphology Comment Not Reportable 07/14/19 04:40 RBC Morphology Not Reportable 07/14/19 04:40 Dimorphic RBCs Not Reportable 07/14/19 04:40 Polychromasia Rare 07/14/19 04:40 Hypochromasia 2+ 07/14/19 04:40 Poikilocytosis Not Reportable 07/14/19 04:40 Anisocytosis 1+ 07/14/19 04:40 Microcytosis Not Reportable 07/14/19 04:40 Macrocytosis Not Reportable 07/14/19 04:40 Spherocytes Not Reportable 07/14/19 04:40 Pappenheimer Bodies Not Reportable 07/14/19 04:40 Sickle Cells Not Reportable 07/14/19 04:40 Target Cells Not Reportable 07/14/19 04:40 Tear Drop Cells Not Reportable 07/14/19 04:40 Ovalocytes Rare 07/14/19 04:40 Helmet Cells Not Reportable 07/14/19 04:40 Altman-Alzada Bodies Not Reportable 07/14/19 04:40 [place] Rings Not Reportable 07/14/19 04:40 [place] Cells Rare 07/14/19 04:40 Bite Cells Not Reportable 07/14/19 04:40 Crenated Cell Not Reportable 07/14/19 04:40 Elliptocytes Not Reportable 07/14/19 04:40 Acanthocytes (Spur) Not Reportable 07/14/19 04:40 Rouleaux Not Reportable 07/14/19 04:40 Hemoglobin C Crystals Not Reportable 07/14/19 04:40 Schistocytes Not Reportable 07/14/19 04:40 Malaria parasites Not Reportable 07/14/19 04:40 Jeevan Bodies Not Reportable 07/14/19 04:40 Hem Pathologist Commnt No 07/14/19 04:40 PT 16.0 Sec. (12.2-14.9) H 07/03/19 22:20 INR 1.26 (0.87-1.13) H 07/03/19 22:20 D-Dimer 1142.18 ng/mlDDU (0-234) H 07/08/19 00:45 ABG pH 7.230 pH Units (7.350-7.450) L 07/14/19 05:45 ABG pCO2 60.4 mm Hg 07/14/19 05:45 ABG pO2 72.1 mm Hg (80.0-90.0) L 07/14/19 05:45 ABG HCO3 24.7 mmol/L (20.0-26.0) 07/14/19 05:45 ABG O2 Saturation 89.3 % (95.0-99.0) L 07/14/19 05:45 ABG O2 Content 8.4 (0.0-44) 07/14/19 05:45 ABG Base Excess -2.7 mmol/L (-2.0-3.0) L 07/14/19 05:45 ABG Hemoglobin 6.7 gm/dl (14.0-18.0) L 07/14/19 05:45 ABG Carboxyhemoglobin 1.5 % (0.0-5.0) 07/14/19 05:45 ABG Methemoglobin 0.3 % (0.0-1.5) 07/14/19 05:45 Oxyhemoglobin 87.7 % (95.0-99.0) L 07/14/19 05:45 FiO2 60 % 07/14/19 05:45 Sodium 141 mmol/L (137-145) 07/14/19 04:40 Potassium 4.9 mmol/L (3.6-5.0) 07/14/19 04:40 Chloride 107.4 mmol/L (98-107) H 07/14/19 04:40 Carbon Dioxide 24 mmol/L (22-30) 07/14/19 04:40 Anion Gap 15 mmol/L 07/14/19 04:40 BUN 45 mg/dL (9-20) H 07/14/19 04:40 Creatinine 1.0 mg/dL (0.8-1.5) D 07/14/19 04:40 Estimated GFR > 60 ml/min 07/14/19 04:40 BUN/Creatinine Ratio 45 % 07/14/19 04:40 Glucose 101 mg/dL (75-100) H 07/14/19 04:40 POC Glucose 154 (70-105) H 07/14/19 05:38 Osmolality 268 Mosm/kg 07/05/19 04:00 Lactic Acid 3.30 mmol/L (0.7-2.0) H* 07/04/19 07:05 Uric Acid 7.2 mg/dL (3.5-7.6) 07/05/19 04:00 Calcium 8.4 mg/dL (8.4-10.2) 07/14/19 04:40 Phosphorus 3.60 mg/dL (2.5-4.5) 07/05/19 04:00 Magnesium 1.80 mg/dL (1.7-2.3) 07/11/19 05:14 Iron 9 ug/dL (49-181) L 07/04/19 07:05 TIBC 97 mcg/dL (250-450) L 07/04/19 07:05 Ferritin 839.0 ng/mL (13.0-400.0) H 07/08/19 00:45 Total Bilirubin 0.20 mg/dL (0.1-1.2) 07/04/19 07:05 AST 73 units/L (5-40) H 07/04/19 07:05 ALT 91 units/L (7-56) H 07/04/19 07:05 Alkaline Phosphatase 114 units/L (35-129) 07/04/19 07:05 Ammonia 35.0 umol/L (25-60) 07/03/19 23:58 Lactate Dehydrogenase 277 units/L (91-180) H 07/10/19 04:00 Troponin T 0.013 ng/mL (0.00-0.029) 07/04/19 07:05 C-Reactive Protein 15.10 mg/dL (0.00-1.30) H 07/10/19 04:00 Total Protein 5.5 g/dL (6.3-8.2) L 07/04/19 07:05 Albumin 2.0 g/dL (3.9-5) L 07/04/19 07:05 Albumin/Globulin Ratio 0.6 % 07/04/19 07:05 Triglycerides 33 mg/dL (2-149) 07/03/19 19:57 Cholesterol 47 mg/dL (50-199) L 07/03/19 19:57 LDL Cholesterol Direct 25 mg/dL (50-130) L 07/03/19 19:57 HDL Cholesterol 20 mg/dL (40-59) L 07/03/19:57 Cholesterol/HDL Ratio 2.35 % 07/03/19:57 Procalcitonin 1.25 ng/mL (<0.15) 07/10/19 04:00 TSH 2.170 mlU/mL (0.270-4.200) 07/03/19 22:20 Total Cortisol 28.0 mcg/dL () 07/05/19 10:11 Urine Color Naima (Yellow) 07/03/19 21:13 Urine Turbidity Cloudy (Clear) 07/03/19 21:13 Urine pH 5.0 (5.0-7.0) 07/03/19 21:13 Ur Specific [place] 1.016 (1.003-1.030) 07/03/19 21:13 Urine Protein 30 mg/dl mg/dL (Negative) 07/03/19 21:13 Urine Glucose (UA) Neg mg/dL (Negative) 07/03/19 21:13 Urine Ketones Neg mg/dL (Negative) 07/03/19 21:13 Urine Blood Neg (Negative) 07/03/19 21:13 Urine Nitrite Neg (Negative) 07/03/19 21:13 Urine Bilirubin Neg (Negative) 07/03/19 21:13 Urine Urobilinogen 2.0 mg/dL (<2.0) 07/03/19 21:13 Ur Leukocyte Esterase Neg (Negative) 07/03/19 21:13 Urine WBC (Auto) 12.0 /HPF (0.0-6.0) H 07/03/19 21:13 Urine RBC (Auto) 6.0 /HPF (0.0-6.0) 07/03/19 21:13 U Epithel Cells (Auto) 1.0 /HPF (0-13.0) 07/03/19 21:13 Urine Bacteria (Auto) 1+ /HPF (Negative) 07/03/19 21:13 Urine WBC Clumps Few /HPF 07/03/19 21:13 Urine Mucus Few /HPF 07/03/19 21:13 Urine Osmolality 293 Mosm/kg 07/05/19 08:15 Vancomycin Trough 23.2 ug/mL (5.0-20.0) H 07/05/19 17:54 Urine Opiates Screen Presumptive negative 07/03/19 21:13 Urine Methadone Screen Presumptive negative 07/03/19 21:13 Ur Barbiturates Screen Presumptive negative 07/03/19 21:13 Ur Phencyclidine Scrn Presumptive negative 07/03/19 21:13 Ur Amphetamines Screen Presumptive negative 07/03/19 21:13 U Benzodiazepines Scrn Presumptive negative 07/03/19 21:13 Urine Cocaine Screen Presumptive negative 07/03/19 21:13 U Marijuana (THC) Screen Presumptive negative 07/03/19 21:13 Drugs of Abuse Note Disclamer 07/03/19 21:13 Plasma/Serum Alcohol < 0.01 % (0-0.07) 07/03/19 23:58 Coronavirus (PCR) Positive (Negative) A 07/04/19 10:09 Blood Type B POSITIVE 07/12/19 08:49 Antibody Screen Negative 07/12/19 08:49 Crossmatch See Detail 07/12/19 08:49 Wright/IV: Voiding Method Indwelling Catheter IV Catheter Type [Left Upper Mid-line arm] IV Catheter Type [Right INT / Saline Lock Forearm] IV Catheter Type [Right Hand] INT / Saline Lock IV Catheter Type [Right CVL Femoral] IV Catheter Type [Left INT / Saline Lock External Jugular] Active Medications - Current Medications Current Medications: Generic Name Dose Route Start Last Admin Trade Name Freq PRN Reason Stop Dose Admin Acetaminophen 650 mg 07/04/19 04:24 Tylenol NJ Q6H PRN Pain MILD(1-3)/Fever >100.5/MURO Acetaminophen 650 mg 07/10/19 04:00 07/11/19 04:16 Tylenol PO 650 mg Q6HR PRN Administration Pain, Mild (1-3) FEVER Lipase/Protease/Amylase 1 each 07/04/19 10:[address] 10,500 Unit FEEDTUBE PRN PRN For Clogged Feeding Tube Aspirin 81 mg 07/05/19 10:00 07/13/19 09:00 Baby Aspirin PO 81 mg QDAY TAMMIE Administration Dextrose 50 ml 07/04/19 06:54 D50w (25gm) Syringe IV Q30MIN PRN Hypoglycemia Protocol Docusate Sodium 100 mg 07/10/19 10:00 07/13/19 22:46 Colace PO 100 mg BID TAMMIE Administration Famotidine 20 mg 07/10/19 10:00 07/13/19 22:44 Pepcid PO 20 mg BID TAMMIE Administration Fentanyl 50 mcg 07/12/19 15:09 Sublimaze IV Q10MIN PRN ANALGESIA Folic Acid 1 mg 07/05/19 10:00 07/13/19 09:00 Folvite PO 1 mg QDAY TAMMIE Administration Hydrophilic Ointment 1 applic 07/03/19 19:56 07/05/19 17:42 Vaseline Lip Therapy TP 1 applic Q2HR PRN Administration Dry Lips Norepinephrine 4 mg in 250 mls @ 7.5 mls/hr 07/03/19 23:00 07/07/19 10:15 Levophed Drip 4 Mg/Ns 250 Ml IV 0 mcg/min TITR TAMMIE 0 mls/hr Titration Protocol 2 MCG/MIN Fentanyl Citrate 2,000 mcg in 100 mls @ 4.25 mls/hr 07/12/19 16:00 07/12/19 15:30 Fentanyl Drip Premix IV 1 mcg/kg/hr TITR TAMMIE 4.25 mls/hr Administration Protocol 1 MCG/KG/HR Sodium Chloride 1,000 mls @ 75 mls/hr 07/13/19 16:15 07/14/19 00:11 Nacl 0.9% 1000 Ml IV 07/16/19 05:34 75 mls/hr DIRECT TAMMIE Administration Sodium Chloride 500 mls @ 0 mls/hr 07/14/19 08:47 Nacl 0.9% 500 Ml IV 07/14/19 08:48 ONCE ONE As Directed Insulin Human Lispro 0 unit 07/07/19 12:00 07/14/19 07:15 Humalog SUB-Q 2 unit Q6HR TAMMIE Administration Protocol Levetiracetam 750 mg 07/06/19 11:00 07/13/19 22:46 Keppra FEEDTUBE 750 mg Q12HR TAMMIE Administration Metoprolol Tartrate 5 mg 07/12/19 15:08 07/12/19 15:30 Metoprolol IV 5 mg Q6HR PRN Administration Tachyarrhythmias Metoprolol Tartrate 12.5 mg 07/12/19 16:00 07/13/19 22:44 Metoprolol PO 12.5 mg BID TAMMIE Administration Morphine Sulfate 2 mg 07/04/19 04:24 07/13/19 08:06 Morphine IV 2 mg Q4H PRN Administration Pain, Moderate (4-6) Multi-Ingred Cream/Lotion/Oil/Oint 1 applic 07/03/19 19:56 07/05/19 13:19 Artificial Tears Ophth Oint OU 1 applic Q4HR PRN Administration Dry Eye(s) Naloxone HCl 0.1 mg 07/04/19 04:24 Naloxone IV Q2MIN PRN Res Rate </= 8 or 02 SAT < 92% Scopolamine 1 each 07/10/19 11:00 07/13/19 10:20 Transderm-Scop TD 1 each Q3D TAMMIE Administration Simple Syrup 15 ml 07/04/19 10:04 07/10/19 21:56 Simple Syrup FEEDTUBE 15 ml PRN PRN Administration Hypoglycemia Simple Syrup 30 ml 07/04/19 10:04 Simple Syrup FEEDTUBE PRN PRN Hypoglycemia Sodium Bicarbonate 325 mg 07/04/19 10:04 Sodium Bicarbonate FEEDTUBE PRN PRN For Clogged Feeding Tube Sodium Chloride 10 ml 07/04/19 10:00 07/13/19 09:02 Sodium Chloride Flush Syringe 10 Ml IV 10 ml BID TAMMIE Administration Sodium Chloride 10 ml 07/04/19 04:24 Sodium Chloride Flush Syringe 10 Ml IV PRN PRN LINE FLUSH Sodium Hypochlorite 1 applic 07/10/19 14:00 07/14/19 05:22 Dakin's Half Strength TP 1 applicatio BID TAMMIE Administration Nutrition/Malnutrition Assess - Dietary Evaluation Nutrition/Malnutrition Findings: Nutrition Notes Start: 07/04/19 09:17 Freq: Status: Active Protocol: Document 07/11/19 11:01 LM (Rec: 07/11/19 11:05 LM [email or web address]) Nutrition Notes Initial or Follow up Reassessment Current Diagnosis Acute Kidney Injury,COPD, Decubitus(Pressure Ulcer), Diabetes,Hypertension Other Pertinent Diagnosis COVID-19 (+), pneu, seizures, schizophrenia, Buttock and R foot PU, Current Diet Vital AF 1.2 at 65ml/hr Labs/Tests K 3.6 Pertinent Medications Reviewed Height 5 ft 11 in Weight 90.7 kg [place] Body Weight (kg) 78.18 BMI 27.8 Subjective/Other Information TF running at goal and pt is tolerating TF. Percent of energy/protein needs met: 92%/100% Burn Absent Trauma Absent Current % PO Negligible Minimum of two criteria No physical signs of malnutrition #2 Nutrition Diagnosis Increased nutrient needs ( specify in comment below) Diagnosis Progress(for reassessment Continues documentation) #1 Nutrition Diagnosis Inadequate oral intake Diagnosis Progress(for reassessment Continues documentation) Is patient on ventilator? Yes Is Patient Ambulatory and/or Out of Bed No REE-([place]-confined to bed) [id number] Additional Notes Protein: 109-182g (1.2-2g/kg) Fluid: 1 ml/kcal or per MD Nutrition Intervention Change Diet Order: TF Nutrition Support: Vital AF 1.2 at 65ml/hr Flush 100ml q4h Kcal 1,872 Protein (gm) 117 Fluid (mL) 973 Goal #1 TF tolerance Goal #2 Meet at least 75% of energy and protein needs Anticipated Discharge Needs: unable to determine at this time Follow-Up By: 07/16/19 Additional Comments F/U for TF tolerance
--- NOTE | 2019-07-14 08:53 | Progress Note ---
Assessment and Plan 1. Hypoantremia: Suspect SIADH. Sodium level has improved, now 141. Monitor Sodium level. 2. FEN: Metabolic acidosis, improved, monitor. Hypokalemia, K level is better, monitor. Monitor volume status and lytes. 3. Acute hypoxic respiratory failure: Currently intubated and on vent. Pulmonary following. 4. Severe Sepsis, POA. Followed by ID. 5. Severe COVID-19 pneumonia. 6. Shock: Off pressors. BP fluctuating today, monitor for need of pressors. Received IV bolus 07/13 for hypotension. Monitor BP closely. 7. Microcytic anemia, POA: Hgb today 6.6. 1 U PRBC to transfuse 07/13. Monitor. 8. Diabetes mellitus. 9. COPD. 10. Encephalopathy, POA: Metabolic. Subjective Date of service: 07/14/19 Principal diagnosis: Bilateral pneumonia, severe sepsis with septic shock, encephalopathy Interval history: Patient was only seen from outside the glass door to prevent exposure to COVID- 19. PPE is also limited supply. Reviewed all notes, vitals, and labs to date. Objective - Exam Narrative Exam: General appearance: intubated on ventilator, NGT present, carroll HEENT: not examined Neck: not examined Respiratory: not examined Heart: sinus tach on the monitor Gastrointestinal: not examined Integumentary: not examined Neurologic: not examined Ext: not examined - Vital Signs Vital signs: Vital Signs - 12hr 07/13/19 07/13/19 07/13/19 21:00 21:30 22:00 Temperature Pulse Rate 125 H 125 H 125 H Pulse Rate [ From Monitor] Respiratory 15 17 17 Rate Blood Pressure 93/50 96/47 90/45 O2 Sat by Pulse 100 100 99 Oximetry 07/13/19 07/13/19 07/13/19 22:07 22:30 22:44 Temperature Pulse Rate 125 H 124 H 123 H Pulse Rate [ From Monitor] Respiratory 15 16 Rate Blood Pressure 90/45 88/43 86/47 O2 Sat by Pulse 100 97 Oximetry 07/13/19 07/13/19 07/14/19 23:00 23:30 00:00 Temperature 98.4 F Pulse Rate 120 H 112 H 111 H Pulse Rate [ 109 H From Monitor] Respiratory 14 14 15 Rate Blood Pressure 88/42 90/45 73/43 O2 Sat by Pulse 98 98 97 Oximetry 07/14/19 07/14/19 07/14/19 00:30 01:00 01:03 Temperature Pulse Rate 108 H 108 H 107 H Pulse Rate [ From Monitor] Respiratory 14 14 Rate Blood Pressure 75/41 78/41 78/41 O2 Sat by Pulse 97 98 97 Oximetry 07/14/19 07/14/19 07/14/19 01:30 02:00 02:30 Temperature Pulse Rate 106 H 106 H 108 H Pulse Rate [ From Monitor] Respiratory 15 14 14 Rate Blood Pressure 76/44 74/43 82/41 O2 Sat by Pulse 97 95 95 Oximetry 07/14/19 07/14/19 07/14/19 03:00 03:30 03:32 Temperature 98.9 F Pulse Rate 108 H 107 H Pulse Rate [ From Monitor] Respiratory 15 14 Rate Blood Pressure 78/39 75/37 O2 Sat by Pulse 95 95 Oximetry 07/14/19 07/14/19 07/14/19 04:00 04:30 05:01 Temperature Pulse Rate 110 H 110 H 112 H Pulse Rate [ 105 H From Monitor] Respiratory 13 15 17 Rate Blood Pressure 78/42 80/39 78/41 O2 Sat by Pulse 97 95 Oximetry 07/14/19 07/14/19 07/14/19 05:30 05:47 06:00 Temperature Pulse Rate 111 H 114 H 114 H Pulse Rate [ From Monitor] Respiratory 18 14 Rate Blood Pressure 82/50 86/49 88/51 O2 Sat by Pulse 90 96 96 Oximetry 07/14/19 07/14/19 07/14/19 06:30 07:00 07:27 Temperature Pulse Rate 114 H 114 H 112 H Pulse Rate [ From Monitor] Respiratory 15 18 Rate Blood Pressure 92/54 93/56 99/59 O2 Sat by Pulse 98 95 100 Oximetry 07/14/19 07/14/19 07/14/19 07:30 08:00 08:30 Temperature Pulse Rate 109 H 114 H 114 H Pulse Rate [ From Monitor] Respiratory 17 16 17 Rate Blood Pressure 77/26 92/57 93/56 O2 Sat by Pulse 95 96 Oximetry - Lab 07/14/19 04:40 07/14/19 04:40 Most recent lab results ABG pH 7.230 pH Units (7.350-7.450) L 07/14/19 05:45 ABG pCO2 60.4 mm Hg 07/14/19 05:45 ABG pO2 72.1 mm Hg (80.0-90.0) L 07/14/19 05:45 ABG HCO3 24.7 mmol/L (20.0-26.0) 07/14/19 05:45 ABG O2 Saturation 89.3 % (95.0-99.0) L 07/14/19 05:45 Calcium 8.4 mg/dL (8.4-10.2) 07/14/19 04:40 Phosphorus 3.60 mg/dL (2.5-4.5) 07/05/19 04:00 Magnesium 1.80 mg/dL (1.7-2.3) 07/11/19 05:14 Medications & Allergies - Medications Allergies/Adverse Reactions: Allergies No Known Allergies Allergy (Unverified 09/09/16 16:29) Home Medications: Home Medications Medication Instructions Recorded Confirmed Last Taken Type Acetaminophen [Tylenol] 500 mg PO TID 07/04/19 07/04/19 Unknown History Albuterol Sulfate [Proair 90 mcg IH TID 07/04/19 07/04/19 Unknown History Digihaler] Amlodipine Besylate [Norvasc] 2.5 mg PO QDAY 07/04/19 07/04/19 Unknown History Aspirin [Aspirin BABY CHEW TAB] 81 mg PO QDAY 07/04/19 07/04/19 Unknown History Atorvastatin Calcium [Lipitor] 80 mg PO QDAY 07/04/19 07/04/19 Unknown History Benztropine Mesylate 0.5 mg PO QDAY 07/04/19 07/04/19 Unknown History Budesonide/Formoterol Fumarate 10.2 gm IH BID 07/04/19 07/04/19 Unknown History [Budesonide-Formoterol 160-4.5] Divalproex ER [DepaKOTE ER] 1,000 mg PO QDAY 07/04/19 07/04/19 Unknown History Docusate Sodium [Colace] 100 mg PO QDAY 07/04/19 07/04/19 Unknown History Folic Acid [Folvite] 1 mg PO QDAY 07/04/19 07/04/19 Unknown History Hydrophilic Ointment [Dermafix] 113 gm TP QDAY 07/04/19 07/04/19 Unknown History Losartan [Cozaar] 100 mg PO QDAY 07/04/19 07/04/19 Unknown History Metformin HCl [Metformin HCl ER] 500 mg PO QDAY 07/04/19 07/04/19 Unknown History Metoprolol Tartrate 25 mg PO BID 07/04/19 07/04/19 Unknown History Multivit with Minerals/Ginseng 1 each PO QDAY 07/04/19 07/04/19 Unknown History [Super Ginseng Multivit Cap] Quetiapine Fumarate [SEROquel Xr] 400 mg PO QHS 07/04/19 07/04/19 Unknown History Sertraline HCl [Zoloft] 100 mg PO QDAY 07/04/19 07/04/19 Unknown History Sildenafil Citrate [Viagra] 100 mg PO QDAY PRN 07/04/19 07/04/19 Unknown History Tamsulosin [Flomax] 0.4 mg PO QDAY 07/04/19 07/04/19 Unknown History Active Medications: Generic Name Dose Route Start Last Admin Trade Name Freq PRN Reason Stop Dose Admin Acetaminophen 650 mg 07/04/19 04:24 Tylenol CO Q6H PRN Pain MILD(1-3)/Fever >100.5/MURO Acetaminophen 650 mg 07/10/19 04:00 07/11/19 04:16 Tylenol PO 650 mg Q6HR PRN Administration Pain, Mild (1-3) FEVER Lipase/Protease/Amylase 1 each 07/04/19 10:[address] 10,500 Unit FEEDTUBE PRN PRN For Clogged Feeding Tube Aspirin 81 mg 07/05/19 10:00 07/13/19 09:00 Baby Aspirin PO 81 mg QDAY TAMMIE Administration Dextrose 50 ml 07/04/19 06:54 D50w (25gm) Syringe IV Q30MIN PRN Hypoglycemia Protocol Docusate Sodium 100 mg 07/10/19 10:00 07/13/19 22:46 Colace PO 100 mg BID TAMMIE Administration Famotidine 20 mg 07/10/19 10:00 07/13/19 22:44 Pepcid PO 20 mg BID TAMMIE Administration Fentanyl 50 mcg 07/12/19 15:09 Sublimaze IV Q10MIN PRN ANALGESIA Folic Acid 1 mg 07/05/19 10:00 07/13/19 09:00 Folvite PO 1 mg QDAY TAMMIE Administration Hydrophilic Ointment 1 applic 07/03/19 19:56 07/05/19 17:42 Vaseline Lip Therapy TP 1 applic Q2HR PRN Administration Dry Lips Norepinephrine 4 mg in 250 mls @ 7.5 mls/hr 07/03/19 23:00 07/07/19 10:15 Levophed Drip 4 Mg/Ns 250 Ml IV 0 mcg/min TITR TAMMIE 0 mls/hr Titration Protocol 2 MCG/MIN Fentanyl Citrate 2,000 mcg in 100 mls @ 4.25 mls/hr 07/12/19 16:00 07/12/19 15:30 Fentanyl Drip Premix IV 1 mcg/kg/hr TITR TAMMIE 4.25 mls/hr Administration Protocol 1 MCG/KG/HR Sodium Chloride 1,000 mls @ 75 mls/hr 07/13/19 16:15 07/14/19 00:11 Nacl 0.9% 1000 Ml IV 07/16/19 05:34 75 mls/hr DIRECT TAMMIE Administration Sodium Chloride 500 mls @ 0 mls/hr 07/14/19 08:47 Nacl 0.9% 500 Ml IV 07/14/19 08:48 ONCE ONE As Directed Insulin Human Lispro 0 unit 07/07/19 12:00 07/14/19 07:15 Humalog SUB-Q 2 unit Q6HR TAMMIE Administration Protocol Levetiracetam 750 mg 07/06/19 11:00 07/13/19 22:46 Keppra FEEDTUBE 750 mg Q12HR TAMMIE Administration Metoprolol Tartrate 5 mg 07/12/19 15:08 07/12/19 15:30 Metoprolol IV 5 mg Q6HR PRN Administration Tachyarrhythmias Metoprolol Tartrate 12.5 mg 07/12/19 16:00 07/13/19 22:44 Metoprolol PO 12.5 mg BID TAMMIE Administration Morphine Sulfate 2 mg 07/04/19 04:24 07/13/19 08:06 Morphine IV 2 mg Q4H PRN Administration Pain, Moderate (4-6) Multi-Ingred Cream/Lotion/Oil/Oint 1 applic 07/03/19 19:56 07/05/19 13:19 Artificial Tears Ophth Oint OU 1 applic Q4HR PRN Administration Dry Eye(s) Naloxone HCl 0.1 mg 07/04/19 04:24 Naloxone IV Q2MIN PRN Res Rate </= 8 or 02 SAT < 92% Scopolamine 1 each 07/10/19 11:00 07/13/19 10:20 Transderm-Scop TD 1 each Q3D TAMMIE Administration Simple Syrup 15 ml 07/04/19 10:04 07/10/19 21:56 Simple Syrup FEEDTUBE 15 ml PRN PRN Administration Hypoglycemia Simple Syrup 30 ml 07/04/19 10:04 Simple Syrup FEEDTUBE PRN PRN Hypoglycemia Sodium Bicarbonate 325 mg 07/04/19 10:04 Sodium Bicarbonate FEEDTUBE PRN PRN For Clogged Feeding Tube Sodium Chloride 10 ml 07/04/19 10:00 07/13/19 09:02 Sodium Chloride Flush Syringe 10 Ml IV 10 ml BID TAMMIE Administration Sodium Chloride 10 ml 07/04/19 04:24 Sodium Chloride Flush Syringe 10 Ml IV PRN PRN LINE FLUSH Sodium Hypochlorite 1 applic 07/10/19 14:00 07/14/19 05:22 Dakin's Half Strength TP 1 applicatio BID TAMMIE Administration
[2019-07-14] MEDS ORDERED: SODIUM CHLORIDE 0.9% 500 ML 500 ML IV ONE (09:00)
[2019-07-14] MEDS: DOCUSATE SODIUM 100 MG/10 ML ORAL LIQD PO SCH ×2 (09:34→22:00)
[2019-07-14] MEDS: levETIRAcetam 500 MG/5 ML ORAL LIQD FEEDTUBE SCH ×2 (09:34→22:00)
[2019-07-14] MEDS: ASPIRIN 81 MG TAB CHEW PO SCH (09:34)
[2019-07-14] MEDS: FOLIC ACID 1 MG TAB PO SCH (09:35)
[2019-07-14] MEDS: METOPROLOL TARTRATE 25 MG TAB PO SCH (09:36)
[2019-07-14] MEDS: FAMOTIDINE 20 MG TAB PO SCH ×2 (09:36→21:58)
--- NOTE | 2019-07-14 13:40 | Progress Note ---
Assessment and Plan S/p Cardiopulmonary arrest with ROSC Severe Sepsis with septic shock. Acute hypoxemic respiratory failure on MVS COVID-19 positive with elevated markers Bilateral pneumonia Elevated LFTs. Oropharyngeal dysphagia s/p PEG Acute kidney injury Decubitus ulcers-unstageable Moderate protein calorie malnutriton [id number] metabolic acidosis Leukocytosis -improving Thrombocytopenia Microcytic anemia -Secretion management, continue Scopolamine -Continue all critical care as documented below -ABG in the am, CBC in the am - continue airborne, droplet and contact isolation for COVID-19 - continue wound care per WCT - sedation prn for target RASS 0 to -1 - continue to wean supplemental oxygen for target O2 sat's > 90% - Daily SAT's and SBT assessment as tolerated - VAP bundle addressed - continue lung protective strategies - continue bronchodilators with pulmonary hygiene per RT - wean per pulmonary driven protocols otherwise - accuchecks with glycemic control per SSI (While critically ill target blood glucose of 140-180 mg/dL; avoid hypoglycemia) - continue to avoid benzodiazepines, reduce the possibility of delirium - prn analgesia per CPOT score - Maintenance of sleep-wake cycle, avoid delirium - continue enteral nutritional support at goal rate as tolerated - VTE prophylaxis-SCDs -Stress ulcer prophylaxis- Famotidine - PT/OT/ROM exercises - continue mobility protocol, off loading and skin assessment for pressure ulcer prevention - Monitor hemodynamics closely -Wright catheter in this critically ill patient with unstageable sacral decubitus ulcer -PEG site care - continue other care per attending / other consultants - discharge planning ongoing concurrently .... Re-evaluate in am & prn CONDITION: CRITICAL PROGNOSIS: GUARDED CODE STATUS: DNAR Called his family to discuss goals of care, unable to make contact with them He was apparently in hospice prior to this admission The high probability of a clinically significant, sudden or life-threatening deterioration of the [respiratory & cardiovascular] system(s) required my full and direct attention, intervention and personal management. The aggregate critical care time was [31] minutes without overlap. Time includes spent on; [x] Data Review and interpretation [x] Patient assessment and monitoring of vital signs [x] Documentation [x] Medication orders and management Subjective Date of service: 07/14/19 Principal diagnosis: Bilateral pneumonia, severe sepsis with septic shock, encephalopathy Interval history: The patient is a 69-year-old male with CVA, hypertension, dementia, schizophrenia, alcohol use disorder was admitted to the emergency room after being brought in by EMS with progressive shortness of breath and unresponsiveness. He was noted to have agonal breathing and a faint pulse requiring CPR. Patient was intubated and brought to the hospital. It seems, patient was on home hospice. Currently, remains critically ill, intubated, on mechanical ventilation. His COVID test resulted positive. Patient is seen today for: s/p cardiopulmonary arrest with ROSC;Ac hypoxemic R yayo failure on MVS; Severe sepsis with Shock; Bilateral Pneumonia; POSITIVE coronavirus-19 infection. Seen and examined at bedside; 24hour events reviewed; nursing and respiratory care staff consulted; no adverse overnight events reported to me; resting in bed. No reported fevers. On MVS and tolerating it well; remains off vasopresor support Tolerating tube feedings, no diarrhea, Mental status changes persist Copious oral and ETT secretions Current setting AC-VC 25/500/60%/PEEP 6 Objective Vital Signs - 12hr 07/14/19 07/14/19 07/14/19 02:00 02:30 03:00 Temperature Pulse Rate 106 H 108 H 108 H Pulse Rate [ From Monitor] Respiratory 14 14 15 Rate Blood Pressure 74/43 82/41 78/39 O2 Sat by Pulse 95 95 95 Oximetry 07/14/19 07/14/19 07/14/19 03:30 03:32 04:00 Temperature 98.9 F Pulse Rate 107 H 110 H Pulse Rate [ 105 H From Monitor] Respiratory 14 13 Rate Blood Pressure 75/37 78/42 O2 Sat by Pulse 95 97 Oximetry 07/14/19 07/14/19 07/14/19 04:30 05:01 05:30 Temperature Pulse Rate 110 H 112 H 111 H Pulse Rate [ From Monitor] Respiratory 15 17 18 Rate Blood Pressure 80/39 78/41 82/50 O2 Sat by Pulse 95 90 Oximetry 07/14/19 07/14/19 07/14/19 05:47 06:00 06:30 Temperature Pulse Rate 114 H 114 H 114 H Pulse Rate [ From Monitor] Respiratory 14 15 Rate Blood Pressure 86/49 88/51 92/54 O2 Sat by Pulse 96 96 98 Oximetry 07/14/19 07/14/19 07/14/19 07:00 07:27 07:30 Temperature Pulse Rate 114 H 112 H 109 H Pulse Rate [ From Monitor] Respiratory 18 17 Rate Blood Pressure 93/56 99/59 77/26 O2 Sat by Pulse 95 100 Oximetry 07/14/19 07/14/19 07/14/19 08:00 08:30 09:00 Temperature 98.0 F Pulse Rate 120 H 114 H 113 H Pulse Rate [ 114 H From Monitor] Respiratory 16 17 15 Rate Blood Pressure 92/57 93/56 90/54 O2 Sat by Pulse 95 96 97 Oximetry 07/14/19 07/14/19 07/14/19 09:30 09:36 09:44 Temperature 96.6 F L Pulse Rate 114 H 114 H 113 H Pulse Rate [ From Monitor] Respiratory 16 17 Rate Blood Pressure 92/58 92/58 86/54 O2 Sat by Pulse 98 99 Oximetry 07/14/19 07/14/19 07/14/19 09:59 10:00 10:29 Temperature 96.5 F L 96.5 F L Pulse Rate 112 H 113 H 109 H Pulse Rate [ From Monitor] Respiratory 19 17 18 Rate Blood Pressure 87/55 87/55 93/54 O2 Sat by Pulse 97 97 Oximetry 07/14/19 07/14/19 07/14/19 10:30 10:59 11:29 Temperature 96.6 F L 97.1 F L Pulse Rate 109 H 112 H 110 H Pulse Rate [ From Monitor] Respiratory 18 18 22 Rate Blood Pressure 93/54 95/54 93/55 O2 Sat by Pulse 96 98 97 Oximetry 07/14/19 07/14/19 07/14/19 11:41 11:46 11:52 Temperature 97.3 F L 97.3 F L Pulse Rate 111 H 110 H Pulse Rate [ From Monitor] Respiratory 23 Rate Blood Pressure 100/56 92/53 O2 Sat by Pulse 97 97 Oximetry Constitutional: appears uncomfortable, other ( chronically ill looking AAM, normocep[krystina;ic with mildly increased respiratory effort at rest) Eyes: non-icteric ENT: oropharynx moist, other (ETT 24 cm RUTH) Neck: supple, no lymphadenopathy, no JVD Effort: mildly labored Ascultation: Bilateral: diminished breath sounds, rhonchi Percussion: Bilateral: not dull Cardiovascular: regular rate and rhythm Gastrointestinal: normoactive bowel sounds, soft, non-tender, non-distended, other (+ PEG tube with mild TF leakage) Integumentary: decubitus ulcer Extremities: no cyanosis, no edema, pink and warm, pulses normal Neurologic: unable to assess Psychiatric: other (Unable to assess re: AMS) CBC and BMP: 07/19/19 08:45 07/18/19 05:22 ABG, PT/INR, D-dimer: ABG ABG pH 7.230 pH Units (7.350-7.450) L 07/14/19 05:45 ABG pCO2 60.4 mm Hg 07/14/19 05:45 ABG pO2 72.1 mm Hg (80.0-90.0) L 07/14/19 05:45 ABG O2 Saturation 89.3 % (95.0-99.0) L 07/14/19 05:45 PT/INR, D-dimer PT 16.0 Sec. (12.2-14.9) H 07/03/19 22:20 INR 1.26 (0.87-1.13) H 07/03/19 22:20 D-Dimer 1142.18 ng/mlDDU (0-234) H 07/08/19 00:45 Abnormal lab findings: Abnormal Labs 07/03/19 07/03/19 07/03/19 19:57 21:10 21:13 WBC RBC Hgb Hct MCV MCH MCHC RDW Plt Count Seg Neuts % (Manual) Lymphocytes % (Manual) Seg Neutrophils # Man Lymphocytes # (Manual) PT INR D-Dimer ABG pH 7.238 L ABG pO2 210.8 H ABG HCO3 15.4 L ABG O2 Saturation 99.2 H ABG Base Excess -11.1 L ABG Hemoglobin 8.0 L Oxyhemoglobin Sodium 124 L Potassium Chloride 92.9 L Carbon Dioxide 10 L BUN 23 H Creatinine 0.5 L Glucose 118 H POC Glucose Lactic Acid Calcium 7.0 L Magnesium Iron TIBC Ferritin AST 70 H ALT 88 H Lactate Dehydrogenase Troponin T 0.032 H C-Reactive Protein Total Protein 5.0 L Albumin 1.8 L Cholesterol 47 L LDL Cholesterol Direct 25 L HDL Cholesterol 20 L Urine WBC (Auto) 12.0 H Vancomycin Trough Coronavirus (PCR) Crossmatch 07/03/19 07/03/19 07/03/19 22:20 22:20 22:20 WBC 30.5 H RBC 2.96 L Hgb 7.7 L Hct 23.9 L MCV 81 L MCH 26 L MCHC RDW 18.6 H Plt Count 459 H Seg Neuts % (Manual) 93.0 H Lymphocytes % (Manual) 0.5 L Seg Neutrophils # Man 28.4 H Lymphocytes # (Manual) 0.2 L PT 16.0 H INR 1.26 H D-Dimer ABG pH ABG pO2 ABG HCO3 ABG O2 Saturation ABG Base Excess ABG Hemoglobin Oxyhemoglobin Sodium Potassium Chloride Carbon Dioxide BUN Creatinine Glucose POC Glucose Lactic Acid 6.90 H* Calcium Magnesium Iron TIBC Ferritin AST ALT Lactate Dehydrogenase Troponin T C-Reactive Protein Total Protein Albumin Cholesterol LDL Cholesterol Direct HDL Cholesterol Urine WBC (Auto) Vancomycin Trough Coronavirus (PCR) Crossmatch 07/03/19 07/04/19 07/04/19 23:58 05:15 07:05 WBC 17.1 H RBC 3.22 L Hgb 8.3 L Hct 25.4 L MCV 79 L MCH 26 L MCHC RDW 18.6 H Plt Count Seg Neuts % (Manual) 74.0 H Lymphocytes % (Manual) 0 L Seg Neutrophils # Man 12.7 H Lymphocytes # (Manual) 0.0 L PT INR D-Dimer ABG pH 7.310 L ABG pO2 73.2 L ABG HCO3 17.8 L ABG O2 Saturation 93.8 L ABG Base Excess -7.7 L ABG Hemoglobin 9.6 L Oxyhemoglobin 92.3 L Sodium Potassium Chloride Carbon Dioxide BUN Creatinine Glucose POC Glucose Lactic Acid 7.10 H* Calcium Magnesium Iron TIBC Ferritin AST ALT Lactate Dehydrogenase Troponin T C-Reactive Protein Total Protein Albumin Cholesterol LDL Cholesterol Direct HDL Cholesterol Urine WBC (Auto) Vancomycin Trough Coronavirus (PCR) Crossmatch 07/04/19 07/04/19 07/04/19 07:05 07:05 07:05 WBC RBC Hgb Hct MCV MCH MCHC RDW Plt Count Seg Neuts % (Manual) Lymphocytes % (Manual) Seg Neutrophils # Man Lymphocytes # (Manual) PT INR D-Dimer ABG pH ABG pO2 ABG HCO3 ABG O2 Saturation ABG Base Excess ABG Hemoglobin Oxyhemoglobin Sodium 120 L Potassium 5.1 H Chloride 90.0 L Carbon Dioxide 14 L BUN 26 H Creatinine 0.5 L Glucose POC Glucose Lactic Acid 3.30 H* Calcium 8.0 L Magnesium Iron 9 L TIBC 97 L Ferritin AST 73 H ALT 91 H Lactate Dehydrogenase Troponin T C-Reactive Protein Total Protein 5.5 L Albumin 2.0 L Cholesterol LDL Cholesterol Direct HDL Cholesterol Urine WBC (Auto) Vancomycin Trough Coronavirus (PCR) Crossmatch 07/04/19 07/04/19 07/04/19 09:39 09:39 09:39 WBC RBC Hgb Hct MCV MCH MCHC RDW Plt Count Seg Neuts % (Manual) Lymphocytes % (Manual) Seg Neutrophils # Man Lymphocytes # (Manual) PT INR D-Dimer 1419.14 H ABG pH ABG pO2 ABG HCO3 ABG O2 Saturation ABG Base Excess ABG Hemoglobin Oxyhemoglobin Sodium Potassium Chloride Carbon Dioxide BUN Creatinine Glucose POC Glucose Lactic Acid Calcium Magnesium Iron TIBC Ferritin 1719.0 H AST ALT Lactate Dehydrogenase 234 H Troponin T C-Reactive Protein 15.50 H Total Protein Albumin Cholesterol LDL Cholesterol Direct HDL Cholesterol Urine WBC (Auto) Vancomycin Trough Coronavirus (PCR) Crossmatch 07/04/19 07/04/19 07/04/19 10:09 18:08 18:28 WBC RBC Hgb Hct MCV MCH MCHC RDW Plt Count Seg Neuts % (Manual) Lymphocytes % (Manual) Seg Neutrophils # Man Lymphocytes # (Manual) PT INR D-Dimer ABG pH ABG pO2 ABG HCO3 ABG O2 Saturation ABG Base Excess ABG Hemoglobin Oxyhemoglobin Sodium 117 L* Potassium 5.6 H Chloride 90.3 L Carbon Dioxide 16 L BUN 28 H Creatinine 0.5 L Glucose 58 L POC Glucose 65 L Lactic Acid Calcium 8.2 L Magnesium Iron TIBC Ferritin AST ALT Lactate Dehydrogenase Troponin T C-Reactive Protein Total Protein Albumin Cholesterol LDL Cholesterol Direct HDL Cholesterol Urine WBC (Auto) Vancomycin Trough Coronavirus (PCR) Positive A Crossmatch 07/04/19 07/04/19 07/04/19 23:45 Unknown Unknown WBC RBC Hgb Hct MCV MCH MCHC RDW Plt Count Seg Neuts % (Manual) Lymphocytes % (Manual) Seg Neutrophils # Man Lymphocytes # (Manual) PT INR D-Dimer 759.77 H ABG pH ABG pO2 ABG HCO3 ABG O2 Saturation ABG Base Excess ABG Hemoglobin Oxyhemoglobin Sodium 122 L Potassium Chloride 93.0 L Carbon Dioxide 19 L BUN 27 H Creatinine 0.5 L Glucose POC Glucose Lactic Acid Calcium 8.3 L Magnesium Iron TIBC Ferritin 1301.0 H AST ALT Lactate Dehydrogenase Troponin T C-Reactive Protein Total Protein Albumin Cholesterol LDL Cholesterol Direct HDL Cholesterol Urine WBC (Auto) Vancomycin Trough Coronavirus (PCR) Crossmatch 07/04/19 07/05/19 07/05/19 Unknown 03:20 04:00 WBC RBC Hgb Hct MCV MCH MCHC RDW Plt Count Seg Neuts % (Manual) Lymphocytes % (Manual) Seg Neutrophils # Man Lymphocytes # (Manual) PT INR D-Dimer ABG pH ABG pO2 60.6 L ABG HCO3 ABG O2 Saturation 93.5 L ABG Base Excess -2.4 L ABG Hemoglobin 6.9 L Oxyhemoglobin 92.0 L Sodium 125 L Potassium Chloride 92.6 L Carbon Dioxide 19 L BUN 24 H Creatinine 0.6 L Glucose POC Glucose Lactic Acid Calcium 8.2 L Magnesium 1.40 L Iron TIBC Ferritin AST ALT Lactate Dehydrogenase 242 H Troponin T C-Reactive Protein 16.70 H Total Protein Albumin Cholesterol LDL Cholesterol Direct HDL Cholesterol Urine WBC (Auto) Vancomycin Trough Coronavirus (PCR) Crossmatch 07/05/19 07/05/19 07/05/19 10:11 16:15 17:54 WBC 46.4 H* RBC 2.77 L Hgb 7.2 L Hct 21.9 L MCV 79 L MCH 26 L MCHC RDW 19.0 H Plt Count Seg Neuts % (Manual) 82.0 H Lymphocytes % (Manual) 1.0 L Seg Neutrophils # Man 38.0 H Lymphocytes # (Manual) 0.5 L PT INR D-Dimer ABG pH ABG pO2 ABG HCO3 ABG O2 Saturation ABG Base Excess ABG Hemoglobin Oxyhemoglobin Sodium Potassium Chloride Carbon Dioxide BUN Creatinine Glucose POC Glucose 69 L Lactic Acid Calcium Magnesium Iron TIBC Ferritin AST ALT Lactate Dehydrogenase Troponin T C-Reactive Protein Total Protein Albumin Cholesterol LDL Cholesterol Direct HDL Cholesterol Urine WBC (Auto) Vancomycin Trough 23.2 H Coronavirus (PCR) Crossmatch 07/05/19 07/06/19 07/06/19 19:58 00:27 00:27 WBC RBC Hgb Hct MCV MCH MCHC RDW Plt Count Seg Neuts % (Manual) Lymphocytes % (Manual) Seg Neutrophils # Man Lymphocytes # (Manual) PT INR D-Dimer 1333.22 H ABG pH ABG pO2 ABG HCO3 ABG O2 Saturation ABG Base Excess ABG Hemoglobin Oxyhemoglobin Sodium 127 L Potassium Chloride Carbon Dioxide BUN Creatinine Glucose POC Glucose Lactic Acid Calcium Magnesium Iron TIBC Ferritin 977.1 H AST ALT Lactate Dehydrogenase Troponin T C-Reactive Protein Total Protein Albumin Cholesterol LDL Cholesterol Direct HDL Cholesterol Urine WBC (Auto) Vancomycin Trough Coronavirus (PCR) Crossmatch 07/06/19 07/06/19 07/06/19 00:27 02:00 02:56 WBC RBC Hgb Hct MCV MCH MCHC RDW Plt Count Seg Neuts % (Manual) Lymphocytes % (Manual) Seg Neutrophils # Man Lymphocytes # (Manual) PT INR D-Dimer ABG pH ABG pO2 70.3 L ABG HCO3 ABG O2 Saturation 94.8 L ABG Base Excess ABG Hemoglobin 8.0 L Oxyhemoglobin 93.2 L Sodium Potassium Chloride Carbon Dioxide BUN Creatinine Glucose POC Glucose 117 H Lactic Acid Calcium Magnesium Iron TIBC Ferritin AST ALT Lactate Dehydrogenase 236 H Troponin T C-Reactive Protein 22.90 H Total Protein Albumin Cholesterol LDL Cholesterol Direct HDL Cholesterol Urine WBC (Auto) Vancomycin Trough Coronavirus (PCR) Crossmatch 07/06/19 07/06/19 07/06/19 03:49 03:49 07:40 WBC 38.8 H RBC 2.51 L Hgb 6.7 L Hct 19.9 L* MCV 79 L MCH 27 L MCHC RDW 19.2 H Plt Count Seg Neuts % (Manual) 90.5 H Lymphocytes % (Manual) 1.0 L Seg Neutrophils # Man 35.1 H Lymphocytes # (Manual) 0.4 L PT INR D-Dimer ABG pH ABG pO2 ABG HCO3 ABG O2 Saturation ABG Base Excess ABG Hemoglobin Oxyhemoglobin Sodium 131 L Potassium Chloride 96.9 L Carbon Dioxide 18 L BUN 23 H Creatinine 0.5 L Glucose POC Glucose Lactic Acid Calcium 8.0 L Magnesium Iron TIBC Ferritin AST ALT Lactate Dehydrogenase Troponin T C-Reactive Protein Total Protein Albumin Cholesterol LDL Cholesterol Direct HDL Cholesterol Urine WBC (Auto) Vancomycin Trough Coronavirus (PCR) Crossmatch See Detail 07/06/19 07/06/19 07/06/19 12:38 14:39 20:00 WBC RBC Hgb Hct MCV MCH MCHC RDW Plt Count Seg Neuts % (Manual) Lymphocytes % (Manual) Seg Neutrophils # Man Lymphocytes # (Manual) PT INR D-Dimer ABG pH ABG pO2 ABG HCO3 ABG O2 Saturation ABG Base Excess ABG Hemoglobin Oxyhemoglobin Sodium Potassium Chloride Carbon Dioxide BUN Creatinine Glucose POC Glucose 112 H 111 H 140 H Lactic Acid Calcium Magnesium Iron TIBC Ferritin AST ALT Lactate Dehydrogenase Troponin T C-Reactive Protein Total Protein Albumin Cholesterol LDL Cholesterol Direct HDL Cholesterol Urine WBC (Auto) Vancomycin Trough Coronavirus (PCR) Crossmatch 07/06/19 07/06/19 07/07/19 22:43 22:56 02:20 WBC RBC Hgb 7.9 L Hct 23.1 L MCV MCH MCHC RDW Plt Count Seg Neuts % (Manual) Lymphocytes % (Manual) Seg Neutrophils # Man Lymphocytes # (Manual) PT INR D-Dimer ABG pH ABG pO2 ABG HCO3 ABG O2 Saturation ABG Base Excess ABG Hemoglobin Oxyhemoglobin Sodium Potassium Chloride Carbon Dioxide BUN Creatinine Glucose POC Glucose 122 H 149 H Lactic Acid Calcium Magnesium Iron TIBC Ferritin AST ALT Lactate Dehydrogenase Troponin T C-Reactive Protein Total Protein Albumin Cholesterol LDL Cholesterol Direct HDL Cholesterol Urine WBC (Auto) Vancomycin Trough Coronavirus (PCR) Crossmatch 07/07/19 07/07/19 07/07/19 04:35 05:27 05:34 WBC 23.1 H RBC 3.00 L Hgb 8.1 L Hct 24.2 L MCV 81 L MCH 27 L MCHC RDW 20.6 H Plt Count Seg Neuts % (Manual) 90.0 H Lymphocytes % (Manual) 2.0 L Seg Neutrophils # Man 20.8 H Lymphocytes # (Manual) 0.5 L PT INR D-Dimer ABG pH ABG pO2 65.8 L ABG HCO3 ABG O2 Saturation 92.2 L ABG Base Excess ABG Hemoglobin 8.3 L Oxyhemoglobin 90.6 L Sodium Potassium Chloride Carbon Dioxide BUN Creatinine Glucose POC Glucose 132 H Lactic Acid Calcium Magnesium Iron TIBC Ferritin AST ALT Lactate Dehydrogenase Troponin T C-Reactive Protein Total Protein Albumin Cholesterol LDL Cholesterol Direct HDL Cholesterol Urine WBC (Auto) Vancomycin Trough Coronavirus (PCR) Crossmatch 07/07/19 07/07/19 07/07/19 05:34 11:50 15:58 WBC RBC Hgb 8.1 L Hct 24.2 L MCV MCH MCHC RDW Plt Count Seg Neuts % (Manual) Lymphocytes % (Manual) Seg Neutrophils # Man Lymphocytes # (Manual) PT INR D-Dimer ABG pH ABG pO2 ABG HCO3 ABG O2 Saturation ABG Base Excess ABG Hemoglobin Oxyhemoglobin Sodium 135 L Potassium 3.3 L Chloride Carbon Dioxide 20 L BUN 27 H Creatinine 0.6 L Glucose 121 H POC Glucose 123 H Lactic Acid Calcium 8.0 L Magnesium Iron TIBC Ferritin AST ALT Lactate Dehydrogenase Troponin T C-Reactive Protein Total Protein Albumin Cholesterol LDL Cholesterol Direct HDL Cholesterol Urine WBC (Auto) Vancomycin Trough Coronavirus (PCR) Crossmatch 07/07/19 07/07/19 07/07/19 17:42 22:00 23:53 WBC RBC Hgb 8.0 L Hct 23.4 L MCV MCH MCHC RDW Plt Count Seg Neuts % (Manual) Lymphocytes % (Manual) Seg Neutrophils # Man Lymphocytes # (Manual) PT INR D-Dimer ABG pH ABG pO2 ABG HCO3 ABG O2 Saturation ABG Base Excess ABG Hemoglobin Oxyhemoglobin Sodium Potassium Chloride Carbon Dioxide BUN Creatinine Glucose POC Glucose 107 H 117 H Lactic Acid Calcium Magnesium Iron TIBC Ferritin AST ALT Lactate Dehydrogenase Troponin T C-Reactive Protein Total Protein Albumin Cholesterol LDL Cholesterol Direct HDL Cholesterol Urine WBC (Auto) Vancomycin Trough Coronavirus (PCR) Crossmatch 07/08/19 07/08/19 07/08/19 00:45 00:45 00:45 WBC RBC Hgb Hct MCV MCH MCHC RDW Plt Count Seg Neuts % (Manual) Lymphocytes % (Manual) Seg Neutrophils # Man Lymphocytes # (Manual) PT INR D-Dimer 1142.18 H ABG pH ABG pO2 ABG HCO3 ABG O2 Saturation ABG Base Excess ABG Hemoglobin Oxyhemoglobin Sodium Potassium Chloride Carbon Dioxide BUN Creatinine Glucose POC Glucose Lactic Acid Calcium Magnesium Iron TIBC Ferritin 839.0 H AST ALT Lactate Dehydrogenase 253 H Troponin T C-Reactive Protein 18.90 H Total Protein Albumin Cholesterol LDL Cholesterol Direct HDL Cholesterol Urine WBC (Auto) Vancomycin Trough Coronavirus (PCR) Crossmatch 07/08/19 07/08/19 07/08/19 04:30 05:11 12:02 WBC RBC Hgb Hct MCV MCH MCHC RDW Plt Count Seg Neuts % (Manual) Lymphocytes % (Manual) Seg Neutrophils # Man Lymphocytes # (Manual) PT INR D-Dimer ABG pH ABG pO2 66.0 L ABG HCO3 ABG O2 Saturation 92.3 L ABG Base Excess ABG Hemoglobin 7.7 L Oxyhemoglobin 90.7 L Sodium Potassium Chloride Carbon Dioxide BUN Creatinine Glucose POC Glucose 108 H 153 H Lactic Acid Calcium Magnesium Iron TIBC Ferritin AST ALT Lactate Dehydrogenase Troponin T C-Reactive Protein Total Protein Albumin Cholesterol LDL Cholesterol Direct HDL Cholesterol Urine WBC (Auto) Vancomycin Trough Coronavirus (PCR) Crossmatch 07/08/19 07/08/19 07/08/19 16:15 18:22 23:35 WBC RBC Hgb Hct MCV MCH MCHC RDW Plt Count Seg Neuts % (Manual) Lymphocytes % (Manual) Seg Neutrophils # Man Lymphocytes # (Manual) PT INR D-Dimer ABG pH ABG pO2 ABG HCO3 ABG O2 Saturation ABG Base Excess ABG Hemoglobin Oxyhemoglobin Sodium 134 L Potassium 3.3 L Chloride Carbon Dioxide 21 L BUN 27 H Creatinine 0.6 L Glucose 146 H POC Glucose 134 H 133 H Lactic Acid Calcium Magnesium Iron TIBC Ferritin AST ALT Lactate Dehydrogenase Troponin T C-Reactive Protein Total Protein Albumin Cholesterol LDL Cholesterol Direct HDL Cholesterol Urine WBC (Auto) Vancomycin Trough Coronavirus (PCR) Crossmatch 07/09/19 07/09/19 07/09/19 04:30 04:30 05:00 WBC 18.9 H RBC 2.77 L Hgb 7.4 L Hct 22.8 L MCV 82 L MCH 27 L MCHC RDW 20.9 H Plt Count 130 L Seg Neuts % (Manual) 84.0 H Lymphocytes % (Manual) 0 L Seg Neutrophils # Man 15.9 H Lymphocytes # (Manual) 0.0 L PT INR D-Dimer ABG pH ABG pO2 ABG HCO3 ABG O2 Saturation ABG Base Excess ABG Hemoglobin Oxyhemoglobin Sodium Potassium 3.1 L Chloride Carbon Dioxide BUN 26 H Creatinine 0.5 L Glucose 125 H POC Glucose 155 H Lactic Acid Calcium Magnesium Iron TIBC Ferritin AST ALT Lactate Dehydrogenase Troponin T C-Reactive Protein Total Protein Albumin Cholesterol LDL Cholesterol Direct HDL Cholesterol Urine WBC (Auto) Vancomycin Trough Coronavirus (PCR) Crossmatch 07/09/19 07/09/19 07/09/19 05:55 12:22 17:50 WBC RBC Hgb Hct MCV MCH MCHC RDW Plt Count Seg Neuts % (Manual) Lymphocytes % (Manual) Seg Neutrophils # Man Lymphocytes # (Manual) PT INR D-Dimer ABG pH ABG pO2 62.8 L ABG HCO3 ABG O2 Saturation ABG Base Excess ABG Hemoglobin 6.1 L Oxyhemoglobin 93.9 L Sodium Potassium Chloride Carbon Dioxide BUN Creatinine Glucose POC Glucose 115 H 133 H Lactic Acid Calcium Magnesium Iron TIBC Ferritin AST ALT Lactate Dehydrogenase Troponin T C-Reactive Protein Total Protein Albumin Cholesterol LDL Cholesterol Direct HDL Cholesterol Urine WBC (Auto) Vancomycin Trough Coronavirus (PCR) Crossmatch 07/10/19 07/10/19 07/10/19 00:38 04:00 04:00 WBC RBC Hgb Hct MCV MCH MCHC RDW Plt Count Seg Neuts % (Manual) Lymphocytes % (Manual) Seg Neutrophils # Man Lymphocytes # (Manual) PT INR D-Dimer ABG pH ABG pO2 ABG HCO3 ABG O2 Saturation ABG Base Excess ABG Hemoglobin Oxyhemoglobin Sodium Potassium Chloride 107.9 H Carbon Dioxide BUN 26 H Creatinine 0.4 L Glucose 137 H POC Glucose 122 H Lactic Acid Calcium Magnesium 1.50 L Iron TIBC Ferritin AST ALT Lactate Dehydrogenase 277 H Troponin T C-Reactive Protein 15.10 H Total Protein Albumin Cholesterol LDL Cholesterol Direct HDL Cholesterol Urine WBC (Auto) Vancomycin Trough Coronavirus (PCR) Crossmatch 07/10/19 07/10/19 07/10/19 04:07 05:21 17:25 WBC RBC Hgb Hct MCV MCH MCHC RDW Plt Count Seg Neuts % (Manual) Lymphocytes % (Manual) Seg Neutrophils # Man Lymphocytes # (Manual) PT INR D-Dimer ABG pH ABG pO2 65.6 L ABG HCO3 26.3 H ABG O2 Saturation ABG Base Excess ABG Hemoglobin 6.7 L Oxyhemoglobin Sodium Potassium Chloride Carbon Dioxide BUN Creatinine Glucose POC Glucose 144 H 113 H Lactic Acid Calcium Magnesium Iron TIBC Ferritin AST ALT Lactate Dehydrogenase Troponin T C-Reactive Protein Total Protein Albumin Cholesterol LDL Cholesterol Direct HDL Cholesterol Urine WBC (Auto) Vancomycin Trough Coronavirus (PCR) Crossmatch 07/11/19 07/11/19 07/11/19 00:07 05:14 05:25 WBC RBC Hgb Hct MCV MCH MCHC RDW Plt Count Seg Neuts % (Manual) Lymphocytes % (Manual) Seg Neutrophils # Man Lymphocytes # (Manual) PT INR D-Dimer ABG pH ABG pO2 ABG HCO3 ABG O2 Saturation ABG Base Excess ABG Hemoglobin 5.8 L Oxyhemoglobin Sodium Potassium Chloride 108.0 H Carbon Dioxide BUN 26 H Creatinine 0.4 L Glucose 110 H POC Glucose 121 H Lactic Acid Calcium Magnesium Iron TIBC Ferritin AST ALT Lactate Dehydrogenase Troponin T C-Reactive Protein Total Protein Albumin Cholesterol LDL Cholesterol Direct HDL Cholesterol Urine WBC (Auto) Vancomycin Trough Coronavirus (PCR) Crossmatch 07/11/19 07/11/19 07/11/19 12:27 18:00 23:42 WBC RBC Hgb Hct MCV MCH MCHC RDW Plt Count Seg Neuts % (Manual) Lymphocytes % (Manual) Seg Neutrophils # Man Lymphocytes # (Manual) PT INR D-Dimer ABG pH ABG pO2 ABG HCO3 ABG O2 Saturation ABG Base Excess ABG Hemoglobin Oxyhemoglobin Sodium Potassium Chloride Carbon Dioxide BUN Creatinine Glucose POC Glucose 158 H 141 H 142 H Lactic Acid Calcium Magnesium Iron TIBC Ferritin AST ALT Lactate Dehydrogenase Troponin T C-Reactive Protein Total Protein Albumin Cholesterol LDL Cholesterol Direct HDL Cholesterol Urine WBC (Auto) Vancomycin Trough Coronavirus (PCR) Crossmatch 07/12/19 07/12/19 07/12/19 04:46 04:46 05:23 WBC 23.6 H RBC 2.51 L Hgb 6.7 L Hct 20.8 L MCV 83 L MCH 27 L MCHC RDW 20.3 H Plt Count Seg Neuts % (Manual) 94.0 H Lymphocytes % (Manual) 4.0 L Seg Neutrophils # Man 22.2 H Lymphocytes # (Manual) 0.9 L PT INR D-Dimer ABG pH ABG pO2 ABG HCO3 ABG O2 Saturation ABG Base Excess ABG Hemoglobin Oxyhemoglobin Sodium Potassium Chloride 107.1 H Carbon Dioxide BUN 25 H Creatinine 0.4 L Glucose 122 H POC Glucose 118 H Lactic Acid Calcium Magnesium Iron TIBC Ferritin AST ALT Lactate Dehydrogenase Troponin T C-Reactive Protein Total Protein Albumin Cholesterol LDL Cholesterol Direct HDL Cholesterol Urine WBC (Auto) Vancomycin Trough Coronavirus (PCR) Crossmatch 07/12/19 07/12/19 07/12/19 08:49 11:36 18:15 WBC RBC Hgb Hct MCV MCH MCHC RDW Plt Count Seg Neuts % (Manual) Lymphocytes % (Manual) Seg Neutrophils # Man Lymphocytes # (Manual) PT INR D-Dimer ABG pH ABG pO2 ABG HCO3 ABG O2 Saturation ABG Base Excess ABG Hemoglobin Oxyhemoglobin Sodium Potassium Chloride Carbon Dioxide BUN Creatinine Glucose POC Glucose 124 H 110 H Lactic Acid Calcium Magnesium Iron TIBC Ferritin AST ALT Lactate Dehydrogenase Troponin T C-Reactive Protein Total Protein Albumin Cholesterol LDL Cholesterol Direct HDL Cholesterol Urine WBC (Auto) Vancomycin Trough Coronavirus (PCR) Crossmatch See Detail 04/23/20 04/24/20 04/24/20 23:16 05:26 06:50 WBC 23.9 H RBC 2.58 L Hgb 6.9 L Hct 21.5 L MCV 83 L MCH 27 L MCHC RDW 19.0 H Plt Count Seg Neuts % (Manual) 96.0 H Lymphocytes % (Manual) 3.0 L Seg Neutrophils # Man 22.9 H Lymphocytes # (Manual) 0.7 L PT INR D-Dimer ABG pH ABG pO2 ABG HCO3 ABG O2 Saturation ABG Base Excess ABG Hemoglobin Oxyhemoglobin Sodium Potassium Chloride Carbon Dioxide BUN Creatinine Glucose POC Glucose 108 H 126 H Lactic Acid Calcium Magnesium Iron TIBC Ferritin AST ALT Lactate Dehydrogenase Troponin T C-Reactive Protein Total Protein Albumin Cholesterol LDL Cholesterol Direct HDL Cholesterol Urine WBC (Auto) Vancomycin Trough Coronavirus (PCR) Crossmatch 07/13/19 07/13/19 07/13/19 06:50 12:38 18:05 WBC RBC Hgb Hct MCV MCH MCHC RDW Plt Count Seg Neuts % (Manual) Lymphocytes % (Manual) Seg Neutrophils # Man Lymphocytes # (Manual) PT INR D-Dimer ABG pH ABG pO2 ABG HCO3 ABG O2 Saturation ABG Base Excess ABG Hemoglobin Oxyhemoglobin Sodium Potassium Chloride Carbon Dioxide BUN 33 H Creatinine 0.5 L Glucose 136 H POC Glucose 164 H 145 H Lactic Acid Calcium Magnesium Iron TIBC Ferritin AST ALT Lactate Dehydrogenase Troponin T C-Reactive Protein Total Protein Albumin Cholesterol LDL Cholesterol Direct HDL Cholesterol Urine WBC (Auto) Vancomycin Trough Coronavirus (PCR) Crossmatch 07/13/19 07/14/19 07/14/19 18:30 00:21 04:40 WBC 22.9 H RBC 2.45 L Hgb 6.6 L Hct 21.1 L MCV MCH 27 L MCHC 31 L RDW 19.2 H Plt Count Seg Neuts % (Manual) 91.0 H Lymphocytes % (Manual) 7.0 L Seg Neutrophils # Man 20.8 H Lymphocytes # (Manual) PT INR D-Dimer ABG pH ABG pO2 58.1 L ABG HCO3 ABG O2 Saturation 88.7 L ABG Base Excess ABG Hemoglobin 7.8 L Oxyhemoglobin 86.8 L Sodium Potassium Chloride Carbon Dioxide BUN Creatinine Glucose POC Glucose 118 H Lactic Acid Calcium Magnesium Iron TIBC Ferritin AST ALT Lactate Dehydrogenase Troponin T C-Reactive Protein Total Protein Albumin Cholesterol LDL Cholesterol Direct HDL Cholesterol Urine WBC (Auto) Vancomycin Trough Coronavirus (PCR) Crossmatch 07/14/19 07/14/19 07/14/19 04:40 05:38 05:45 WBC RBC Hgb Hct MCV MCH MCHC RDW Plt Count Seg Neuts % (Manual) Lymphocytes % (Manual) Seg Neutrophils # Man Lymphocytes # (Manual) PT INR D-Dimer ABG pH 7.230 L ABG pO2 72.1 L ABG HCO3 ABG O2 Saturation 89.3 L ABG Base Excess -2.7 L ABG Hemoglobin 6.7 L Oxyhemoglobin 87.7 L Sodium Potassium Chloride 107.4 H Carbon Dioxide BUN 45 H Creatinine Glucose 101 H POC Glucose 154 H Lactic Acid Calcium Magnesium Iron TIBC Ferritin AST ALT Lactate Dehydrogenase Troponin T C-Reactive Protein Total Protein Albumin Cholesterol LDL Cholesterol Direct HDL Cholesterol Urine WBC (Auto) Vancomycin Trough Coronavirus (PCR) Crossmatch 07/14/19 12:25 WBC RBC Hgb Hct MCV MCH MCHC RDW Plt Count Seg Neuts % (Manual) Lymphocytes % (Manual) Seg Neutrophils # Man Lymphocytes # (Manual) PT INR D-Dimer ABG pH ABG pO2 ABG HCO3 ABG O2 Saturation ABG Base Excess ABG Hemoglobin Oxyhemoglobin Sodium Potassium Chloride Carbon Dioxide BUN Creatinine Glucose POC Glucose 136 H Lactic Acid Calcium Magnesium Iron TIBC Ferritin AST ALT Lactate Dehydrogenase Troponin T C-Reactive Protein Total Protein Albumin Cholesterol LDL Cholesterol Direct HDL Cholesterol Urine WBC (Auto) Vancomycin Trough Coronavirus (PCR) Crossmatch Chest x-ray: image reviewed Allied health notes reviewed: RT
[2019-07-14] MEDS ORDERED: SODIUM CHLORIDE 0.9% 500 ML 500 ML IV NR (18:39)
[2019-07-14 19:13] LABS: Hematocrit 23.3 % (35.5-45.6); Hemoglobin 7.5 gm/dl (11.8-15.2); Mean Corpuscular HGB Conc 32 % (32-34); Mean Corpuscular Volume 86 fl (84-94); Platelet Count 382 K/mm3 (140-440); Red Cell Distribution Width 19.5 % (13.2-15.2)
[2019-07-14] MEDS: fentaNYL DRIP Premix 2,000 MCG/100 ML BAG IV SCH (21:59)
[2019-07-15 05:27] LABS: ABG Base Excess -3.1 mmol/L (-2.0-3.0); ABG HCO3 22.4 mmol/L (20.0-26.0); ABG Methemoglobin 0.4 % (0.0-1.5); ABG Oxygen Saturation 96.8 % (95.0-99.0); ABG PCO2 42.2 mm Hg; ABG PH 7.342 pH Units (7.350-7.450); ABG PO2 88.5 mm Hg (80.0-90.0)
[2019-07-15 05:44] LABS: Hematocrit 20.7 % (35.5-45.6); Hemoglobin 6.8 gm/dl (11.8-15.2); Mean Corpuscular HGB Conc 33 % (32-34); Mean Corpuscular Volume 86 fl (84-94); Platelet Count 408 K/mm3 (140-440); Red Blood Count 2.41 M/mm3 (3.65-5.03)
[2019-07-15 05:46] LABS: Red Cell Distribution Width 20.2 % (13.2-15.2)
[2019-07-15 05:51] LABS: Calcium 8.4 mg/dL (8.4-10.2)
[2019-07-15] MEDS: INSULIN LISPRO 100 UNIT/ML SUB-Q SCH ×4 (06:39→18:02)
[2019-07-15 06:40] LABS: Basophils % (Manual) 0 % (0.0-1.8); Eosinophils % (Manual) 0 % (0.0-4.3); Hypochromasia 2+; Total Cells Counted 100
[2019-07-15] MEDS: METOPROLOL TARTRATE 25 MG TAB PO SCH ×2 (06:40→11:20)
[2019-07-15 06:41] LABS: Anisocytosis 1+; Spherocytes Few
[2019-07-15 06:42] LABS: Ovalocytes Rare; Platelet Estimate Consistent w Auto; Schistocytes Few
[2019-07-15] MEDS: SODIUM HYPOCHLORITE, DAKIN'S 1/2 STRENGTH (0.25%) 473 ML TOPICAL SOLN TP SCH ×2 (06:42→21:21)
[2019-07-15] MEDS: NORepinephrine/NS 4 MG-250 ML 4 MG/250 ML BAG IV SCH ×2 (07:13→20:42)
[2019-07-15] MEDS: ACETAMINOPHEN 325 MG/10.15 ML ORAL LIQD UNIT DOSE PO PRN ×2 (07:41→20:35)
--- NOTE | 2019-07-15 08:52 | Progress Note ---
Assessment and Plan Assessment and plan: --Septic shock: Lactic acidosis Received pressors in the past For monitoring off pressors however blood pressures continues to be low Started on levophed, titrate to systolic blood pressure more than 100 --Anemia, Microcytic persistent Transfuse 1 unit of PRBC today Stool for occult blood, monitor H&H --COVid positive pneumonia with severe sepsis Received Plaquenil and cefepime, monitor off antibiotics ID following -- Acute respiratory Failure with Hypoxia Due to bilateral PNA with COVID 19 infection. pulmonary critical care following Continue ventilatory support, wean as tolerated and extubate --Bilateral PNA with severe sepsis Received antibiotics --Acute metabolic encephalopathy Multifactorial, respiratory failure, sepsis, anemia Electrolyte abnormalities, seizures --COPD with exacerbation Likely due to COVID-19 pneumonia Continue scheduled nebs --Pressure Ulcers buttocks, right lateral foot area present upon admission wound care consulted --Hyponatremia, continue IV fluid --DM type 2 Accu-Chek sliding scale coverage ADA diet insulin --HTN Essential, now hypotensive relatively low BP, on IVF. monitor --Seizure D/o/CVA/immobility/BIpolar D/o/SCZ chronic medical conditions, stable --Severe PCM, TF for now, dietary following patient is DNR- Called and verified information Very poor prognosis, Recommend hospice 07/04: COVID +ve, start on plaquinil, called no answer 07/05: transfuse one unit PRBC, Hb dropped to ~6, called and updated 07/06; H&H stable, serum chemistry improved. On mechanical ventilation with high inflammatory markers. Continue Plaquenil and empiric antibiotics. ID following, prognosis remains guarded and extremely poor. 07/07: On mechanical ventilation with high inflammatory markers. Continue Plaquenil and empiric antibiotics. ID following, prognosis remains guarded and extremely poor. 07/08: Called today and verified the CODE STATUS. Patient remains DNR. He is still intubated, with poor prognosis. Continue to follow inflammatory markers. 07/09 wean off from vent as tolerated, completed empiric antibiotic and Pl aquenil 07/10 wean off from vent as tolerated. poor prognosis 07/11 hb 6.7 today, transfuse one PRBC. wean off from vent as tolerated. poor prognosis 07/12 remains critically on vent. Hb 6.9 07/13 Hb dropped to 6.6, transfuse 1 unit of PRBC, remains on vent critically ill Hypotensive, fluid bolus, if no improvement start Levophed 07/14; remains anemic with hemoglobin of 6.8, received total 3 units of PRBC Additional 1 unit of PRBC today, stool for occult blood to rule out GI causes Started back on Levophed due to hypotension The high probability of a clinically significant, sudden or life threatening deterioration of the [respiratory, CVS, ENT NURSE] system(s) required my full and direct attention, intervention and personal management. The aggregate critical care time was [32] minutes. This time is in addition to time spent performing reported procedures but includes the following: [x] Data Review and interpretation [x] Patient assessment and monitoring of vital signs [x] Documentation [x] Medication orders and management Critical care time 40 minutes History Interval history: Patient remains intubated on ventilatory support Clinically no change Critically ill with very poor prognosis Vital signs noted Hospitalist Physical - Physical exam Narrative exam: Limited physical examination; due to shortage of PPE preservation Constitutional; patient critically ill, emaciated Orally intubated on vent - Constitutional Vitals: Temp Pulse Resp BP Pulse Ox 100.3 F H 126 H 28 H 103/52 98 07/15/19 08:13 07/15/19 08:13 07/15/19 08:13 07/15/19 08:13 07/15/19 08:13 General appearance: Present: mild distress, well-nourished, other (Orally intubated on vent) - EENT ENT: other (Not done due to lack of PPE) - Neck Neck: Present: other (Not done) - Respiratory Respiratory effort: other (Not done lack of PPE) - Cardiovascular Rhythm: other (Not done, lack of PPE) - Extremities Extremity abnormal: other (Not done due to lack of PPE) - Abdominal General gastrointestinal: other (Lack of PPE) - Psychiatric Psychiatric: other (Did not examine due to shortage of PPE) - Neurologic Neurologic: other (Did not examine) Results - Labs CBC & Chem 7: 07/15/19 05:18 07/15/19 05:18 Labs: Laboratory Last Values WBC 20.6 K/mm3 (4.5-11.0) H 07/15/19 05:18 RBC 2.41 M/mm3 (3.65-5.03) L 07/15/19 05:18 Hgb 6.8 gm/dl (11.8-15.2) L 07/15/19 05:18 Hct 20.7 % (35.5-45.6) L 07/15/19 05:18 MCV 86 fl (84-94) 07/15/19 05:18 MCH 28 pg (28-32) 07/15/19 05:18 MCHC 33 % (32-34) 07/15/19 05:18 RDW 20.2 % (13.2-15.2) H 07/15/19 05:18 Plt Count 408 K/mm3 (140-440) 07/15/19 05:18 Lymph % (Auto) Fitness Coordinator 07/03/19 22:20 Dougherty % (Auto) Fitness Coordinator 07/03/19 22:20 Eos % (Auto) Fitness Coordinator 07/03/19 22:20 Baso % (Auto) Fitness Coordinator 07/03/19 22:20 Lymph # Fitness Coordinator 07/03/19 22:20 Dougherty # Fitness Coordinator 07/03/19 22:20 Eos # Fitness Coordinator 07/03/19 22:20 Baso # Fitness Coordinator 07/03/19 22:20 Add Manual Diff Complete 07/15/19 05:18 Total Counted 100 07/15/19 05:18 Seg Neutrophils % Fitness Coordinator 07/15/19 05:18 Seg Neuts % (Manual) 92.0 % (40.0-70.0) H 07/15/19 05:18 Band Neutrophils % 0 % 07/15/19 05:18 Lymphocytes % (Manual) 5.0 % (13.4-35.0) L 07/15/19 05:18 Reactive Lymphs % (Man) 0 % 07/15/19 05:18 Monocytes % (Manual) 3.0 % (0.0-7.3) 07/15/19 05:18 Eosinophils % (Manual) 0 % (0.0-4.3) 07/15/19 05:18 Basophils % (Manual) 0 % (0.0-1.8) 07/15/19 05:18 Metamyelocytes % 0 % 07/15/19 05:18 Myelocytes % 0 % 07/15/19 05:18 Promyelocytes % 0 % 07/15/19 05:18 Blast Cells % 0 % 07/15/19 05:18 Nucleated RBC % Not Reportable 07/15/19 05:18 Seg Neutrophils # Fitness Coordinator 07/03/19 22:20 Seg Neutrophils # Man 19.0 K/mm3 (1.8-7.7) H 07/15/19 05:18 Band Neutrophils # 0.0 K/mm3 07/15/19 05:18 Lymphocytes # (Manual) 1.0 K/mm3 (1.2-5.4) L 07/15/19 05:18 Abs React Lymphs (Man) 0.0 K/mm3 07/15/19 05:18 Monocytes # (Manual) 0.6 K/mm3 (0.0-0.8) 07/15/19 05:18 Eosinophils # (Manual) 0.0 K/mm3 (0.0-0.4) 07/15/19 05:18 Basophils # (Manual) 0.0 K/mm3 (0.0-0.1) 07/15/19 05:18 Metamyelocytes # 0.0 K/mm3 07/15/19 05:18 Myelocytes # 0.0 K/mm3 07/15/19 05:18 Promyelocytes # 0.0 K/mm3 07/15/19 05:18 Blast Cells # 0.0 K/mm3 07/15/19 05:18 WBC Morphology Not Reportable 07/15/19 05:18 Hypersegmented Neuts Not Reportable 07/15/19 05:18 Hyposegmented Neuts Not Reportable 07/15/19 05:18 Hypogranular Neuts Not Reportable 07/15/19 05:18 Smudge Cells Not Reportable 07/15/19 05:18 Toxic Granulation Not Reportable 07/15/19 05:18 Toxic Vacuolation Not Reportable 07/15/19 05:18 Dohle Bodies Not Reportable 07/15/19 05:18 Pelger-Huet Anomaly Not Reportable 07/15/19 05:18 Mendy Rods Not Reportable 07/15/19 05:18 Platelet Estimate Consistent w auto 07/15/19 05:18 Clumped Platelets Not Reportable 07/15/19 05:18 Plt Clumps, EDTA Not Reportable 07/15/19 05:18 Large Platelets Not Reportable 07/15/19 05:18 Giant Platelets Not Reportable 07/15/19 05:18 Platelet Satelliting Not Reportable 07/15/19 05:18 Plt Morphology Comment Not Reportable 07/15/19 05:18 RBC Morphology Not Reportable 07/15/19 05:18 Dimorphic RBCs Not Reportable 07/15/19 05:18 Polychromasia Not Reportable 07/15/19 05:18 Hypochromasia 2+ 07/15/19 05:18 Poikilocytosis Not Reportable 07/15/19 05:18 Anisocytosis 1+ 07/15/19 05:18 Microcytosis Few 07/15/19 05:18 Macrocytosis Not Reportable 07/15/19 05:18 Spherocytes Few 07/15/19 05:18 Pappenheimer Bodies Not Reportable 07/15/19 05:18 Sickle Cells Not Reportable 07/15/19 05:18 Target Cells Not Reportable 07/15/19 05:18 Tear Drop Cells Not Reportable 07/15/19 05:18 Ovalocytes Rare 07/15/19 05:18 Helmet Cells Not Reportable 07/15/19 05:18 Altman-Birdsong Bodies Not Reportable 07/15/19 05:18 [place] Rings Not Reportable 07/15/19 05:18 Joanne Cells Not Reportable 07/15/19 05:18 Bite Cells Not Reportable 07/15/19 05:18 Crenated Cell Not Reportable 07/15/19 05:18 Elliptocytes Not Reportable 07/15/19 05:18 Acanthocytes (Spur) Not Reportable 07/15/19 05:18 Rouleaux Not Reportable 07/15/19 05:18 Hemoglobin C Crystals Not Reportable 07/15/19 05:18 Schistocytes Few 07/15/19 05:18 Malaria parasites Not Reportable 07/15/19 05:18 Jeevan Bodies Not Reportable 07/15/19 05:18 Hem Pathologist Commnt No 07/15/19 05:18 PT 16.0 Sec. (12.2-14.9) H 07/03/19 22:20 INR 1.26 (0.87-1.13) H 07/03/19 22:20 D-Dimer 1142.18 ng/mlDDU (0-234) H 07/08/19 00:45 ABG pH 7.342 pH Units (7.350-7.450) L 07/15/19 04:35 ABG pCO2 42.2 mm Hg 07/15/19 04:35 ABG pO2 88.5 mm Hg (80.0-90.0) 07/15/19 04:35 ABG HCO3 22.4 mmol/L (20.0-26.0) 07/15/19 04:35 ABG O2 Saturation 96.8 % (95.0-99.0) 07/15/19 04:35 ABG O2 Content 9.8 (0.0-44) 07/15/19 04:35 ABG Base Excess -3.1 mmol/L (-2.0-3.0) L 07/15/19 04:35 ABG Hemoglobin 7.2 gm/dl (14.0-18.0) L 07/15/19 04:35 ABG Carboxyhemoglobin 1.6 % (0.0-5.0) 07/15/19 04:35 ABG Methemoglobin 0.4 % (0.0-1.5) 07/15/19 04:35 Oxyhemoglobin 94.9 % (95.0-99.0) L 07/15/19 04:35 FiO2 60 % 07/15/19 04:35 Sodium 139 mmol/L (137-145) 07/15/19 05:18 Potassium 5.0 mmol/L (3.6-5.0) 07/15/19 05:18 Chloride 106.6 mmol/L (98-107) 07/15/19 05:18 Carbon Dioxide 20 mmol/L (22-30) L 07/15/19 05:18 Anion Gap 17 mmol/L 07/15/19 05:18 BUN 59 mg/dL (9-20) H 07/15/19 05:18 Creatinine 1.5 mg/dL (0.8-1.5) 07/15/19 05:18 Estimated GFR 56 ml/min 07/15/19 05:18 BUN/Creatinine Ratio 39 % 07/15/19 05:18 Glucose 140 mg/dL (75-100) H 07/15/19 05:18 POC Glucose 139 (70-105) H 07/15/19 05:57 Osmolality 268 Mosm/kg 07/05/19 04:00 Lactic Acid 3.30 mmol/L (0.7-2.0) H* 07/04/19 07:05 Uric Acid 7.2 mg/dL (3.5-7.6) 07/05/19 04:00 Calcium 8.4 mg/dL (8.4-10.2) 07/15/19 05:18 Phosphorus 3.60 mg/dL (2.5-4.5) 07/05/19 04:00 Magnesium 1.80 mg/dL (1.7-2.3) 07/11/19 05:14 Iron 9 ug/dL (49-181) L 07/04/19 07:05 TIBC 97 mcg/dL (250-450) L 07/04/19 07:05 Ferritin 839.0 ng/mL (13.0-400.0) H 07/08/19 00:45 Total Bilirubin 0.20 mg/dL (0.1-1.2) 07/04/19 07:05 AST 73 units/L (5-40) H 07/04/19 07:05 ALT 91 units/L (7-56) H 07/04/19 07:05 Alkaline Phosphatase 114 units/L (35-129) 07/04/19 07:05 Ammonia 35.0 umol/L (25-60) 07/03/19 23:58 Lactate Dehydrogenase 277 units/L (91-180) H 07/10/19 04:00 Troponin T 0.013 ng/mL (0.00-0.029) 07/04/19 07:05 C-Reactive Protein 15.10 mg/dL (0.00-1.30) H 07/10/19 04:00 Total Protein 5.5 g/dL (6.3-8.2) L 07/04/19 07:05 Albumin 2.0 g/dL (3.9-5) L 07/04/19 07:05 Albumin/Globulin Ratio 0.6 % 07/04/19 07:05 Triglycerides 33 mg/dL (2-149) 07/03/19 19:57 Cholesterol 47 mg/dL (50-199) L 07/03/19 19:57 LDL Cholesterol Direct 25 mg/dL (50-130) L 07/03/19 19:57 HDL Cholesterol 20 mg/dL (40-59) L 07/03/19 19:57 Cholesterol/HDL Ratio 2.35 % 07/03/19 19:57 Procalcitonin 1.25 ng/mL (<0.15) 07/10/19 04:00 TSH 2.170 mlU/mL (0.270-4.200) 07/03/19 22:20 Total Cortisol 28.0 mcg/dL () 07/05/19 10:11 Urine Color Naima (Yellow) 07/03/19 21:13 Urine Turbidity Cloudy (Clear) 07/03/19 21:13 Urine pH 5.0 (5.0-7.0) 07/03/19 21:13 Ur Specific Bono 1.016 (1.003-1.030) 07/03/19 21:13 Urine Protein 30 mg/dl mg/dL (Negative) 07/03/19 21:13 Urine Glucose (UA) Neg mg/dL (Negative) 07/03/19 21:13 Urine Ketones Neg mg/dL (Negative) 07/03/19 21:13 Urine Blood Neg (Negative) 07/03/19 21:13 Urine Nitrite Neg (Negative) 07/03/19 21:13 Urine Bilirubin Neg (Negative) 07/03/19 21:13 Urine Urobilinogen 2.0 mg/dL (<2.0) 07/03/19 21:13 Ur Leukocyte Esterase Neg (Negative) 07/03/19 21:13 Urine WBC (Auto) 12.0 /HPF (0.0-6.0) H 07/03/19 21:13 Urine RBC (Auto) 6.0 /HPF (0.0-6.0) 07/03/19 21:13 U Epithel Cells (Auto) 1.0 /HPF (0-13.0) 07/03/19 21:13 Urine Bacteria (Auto) 1+ /HPF (Negative) 07/03/19 21:13 Urine WBC Clumps Few /HPF 07/03/19 21:13 Urine Mucus Few /HPF 07/03/19 21:13 Urine Osmolality 293 Mosm/kg 07/05/19 08:15 Vancomycin Trough 23.2 ug/mL (5.0-20.0) H 07/05/19 17:54 Urine Opiates Screen Presumptive negative 07/03/19 21:13 Urine Methadone Screen Presumptive negative 07/03/19 21:13 Ur Barbiturates Screen Presumptive negative 07/03/19 21:13 Ur Phencyclidine Scrn Presumptive negative 07/03/19 21:13 Ur Amphetamines Screen Presumptive negative 07/03/19 21:13 U Benzodiazepines Scrn Presumptive negative 07/03/19 21:13 Urine Cocaine Screen Presumptive negative 07/03/19 21:13 U Marijuana (THC) Screen Presumptive negative 07/03/19 21:13 Drugs of Abuse Note Disclamer 07/03/19 21:13 Plasma/Serum Alcohol < 0.01 % (0-0.07) 07/03/19 23:58 Coronavirus (PCR) Positive (Negative) A 07/04/19 10:09 Blood Type B POSITIVE 07/12/19 08:49 Antibody Screen Negative 07/12/19 08:49 Crossmatch See Detail 07/12/19 08:49 Wright/IV: Voiding Method Indwelling Catheter IV Catheter Type [Left Upper Mid-line arm] IV Catheter Type [Right INT / Saline Lock Forearm] IV Catheter Type [Right Hand] INT / Saline Lock IV Catheter Type [Right CVL Femoral] IV Catheter Type [Left INT / Saline Lock External Jugular] Active Medications - Current Medications Current Medications: Generic Name Dose Route Start Last Admin Trade Name Freq PRN Reason Stop Dose Admin Acetaminophen 650 mg 07/04/19 04:24 Tylenol CO Q6H PRN Pain MILD(1-3)/Fever >100.5/MURO Acetaminophen 650 mg 07/10/19 04:00 07/15/19 07:41 Tylenol PO 650 mg Q6HR PRN Administration Pain, Mild (1-3) FEVER Lipase/Protease/Amylase 1 each 07/04/19 10:04 Pancrewhitley Gilbert 10,500 Unit FEEDTUBE PRN PRN For Clogged Feeding Tube Aspirin 81 mg 07/05/19 10:00 07/14/19 09:34 Baby Aspirin PO 81 mg QDAY TAMMIE Administration Dextrose 50 ml 07/04/19 06:54 D50w (25gm) Syringe IV Q30MIN PRN Hypoglycemia Protocol Docusate Sodium 100 mg 07/10/19 10:00 07/14/19 22:00 Colace PO 100 mg BID TAMMIE Administration Famotidine 20 mg 07/10/19 10:00 07/14/19 21:58 Pepcid PO 20 mg BID TAMMIE Administration Fentanyl 50 mcg 07/12/19 15:09 Sublimaze IV Q10MIN PRN ANALGESIA Folic Acid 1 mg 07/05/19 10:00 07/14/19 09:35 Folvite PO 1 mg QDAY TAMMIE Administration Hydrophilic Ointment 1 applic 07/03/19 19:56 07/05/19 17:42 Vaseline Lip Therapy TP 1 applic Q2HR PRN Administration Dry Lips Norepinephrine 4 mg in 250 mls @ 7.5 mls/hr 07/03/19 23:00 07/15/19 08:01 Levophed Drip 4 Mg/Ns 250 Ml IV 2 mcg/min TITR TAMMIE 7.5 mls/hr Titration Protocol 2 MCG/MIN Fentanyl Citrate 2,000 mcg in 100 mls @ 4.25 mls/hr 07/12/19 16:00 07/14/19 21:59 Fentanyl Drip Premix IV 1 mcg/kg/hr TITR TAMMIE 4.25 mls/hr Administration Protocol 1 MCG/KG/HR Sodium Chloride 1,000 mls @ 75 mls/hr 07/13/19 16:15 07/14/19 09:40 Nacl 0.9% 1000 Ml IV 07/16/19 05:34 75 mls/hr DIRECT TAMMIE Administration Insulin Human Lispro 0 unit 07/07/19 12:00 07/15/19 06:40 Humalog SUB-Q Not Given Q6HR [facility]1983 Protocol Levetiracetam 750 mg 07/06/19 11:00 07/14/19 22:00 Keppra FEEDTUBE 750 mg Q12HR TAMMIE Administration Metoprolol Tartrate 5 mg 07/12/19 15:08 07/12/19 15:30 Metoprolol IV 5 mg Q6HR PRN Administration Tachyarrhythmias Metoprolol Tartrate 12.5 mg 07/12/19 16:00 07/15/19 06:40 Metoprolol PO Not Given BID TAMMIE Morphine Sulfate 2 mg 07/04/19 04:24 07/13/19 08:06 Morphine IV 2 mg Q4H PRN Administration Pain, Moderate (4-6) Multi-Ingred Cream/Lotion/Oil/Oint 1 applic 07/03/19 19:56 07/05/19 13:19 Artificial Tears Ophth Oint OU 1 applic Q4HR PRN Administration Dry Eye(s) Naloxone HCl 0.1 mg 07/04/19 04:24 Naloxone IV Q2MIN PRN Res Rate </= 8 or 02 SAT < 92% Scopolamine 1 each 07/10/19 11:00 07/13/19 10:20 Transderm-Scop TD 1 each Q3D TAMMIE Administration Simple Syrup 15 ml 07/04/19 10:04 07/10/19 21:56 Simple Syrup FEEDTUBE 15 ml PRN PRN Administration Hypoglycemia Simple Syrup 30 ml 07/04/19 10:04 Simple Syrup FEEDTUBE PRN PRN Hypoglycemia Sodium Bicarbonate 325 mg 07/04/19 10:04 Sodium Bicarbonate FEEDTUBE PRN PRN For Clogged Feeding Tube Sodium Chloride 10 ml 07/04/19 10:00 07/14/19 09:35 Sodium Chloride Flush Syringe 10 Ml IV 10 ml BID TAMMIE Administration Sodium Chloride 10 ml 07/04/19 04:24 Sodium Chloride Flush Syringe 10 Ml IV PRN PRN LINE FLUSH Sodium Hypochlorite 1 applic 07/10/19 14:00 07/15/19 06:42 Dakin's Half Strength TP 1 applicatio BID TAMMIE Administration Nutrition/Malnutrition Assess - Dietary Evaluation Nutrition/Malnutrition Findings: Nutrition Notes Start: 07/04/19 09:17 Freq: Status: Active Protocol: Document 07/11/19 11:01 LM (Rec: 07/11/19 11:05 LM [id number]) Nutrition Notes Initial or Follow up Reassessment Current Diagnosis Acute Kidney Injury,COPD, Decubitus(Pressure Ulcer), Diabetes,Hypertension Other Pertinent Diagnosis COVID-19 (+), pneu, seizures, schizophrenia, Buttock and R foot PU, Current Diet Vital AF 1.2 at 65ml/hr Labs/Tests K 3.6 Pertinent Medications Reviewed Height 5 ft 11 in Weight 90.7 kg [place] Body Weight (kg) 78.18 BMI 27.8 Subjective/Other Information TF running at goal and pt is tolerating TF. Percent of energy/protein needs met: 92%/100% Burn Absent Trauma Absent Current % PO Negligible Minimum of two criteria No physical signs of malnutrition #2 Nutrition Diagnosis Increased nutrient needs ( specify in comment below) Diagnosis Progress(for reassessment Continues documentation) #1 Nutrition Diagnosis Inadequate oral intake Diagnosis Progress(for reassessment Continues documentation) Is patient on ventilator? Yes Is Patient Ambulatory and/or Out of Bed No REE-([facility]-confined to bed) [phone] Additional Notes Protein: 109-182g (1.2-2g/kg) Fluid: 1 ml/kcal or per MD Nutrition Intervention Change Diet Order: TF Nutrition Support: Vital AF 1.2 at 65ml/hr Flush 100ml q4h Kcal 1,872 Protein (gm) 117 Fluid (mL) 973 Goal #1 TF tolerance Goal #2 Meet at least 75% of energy and protein needs Anticipated Discharge Needs: unable to determine at this time Follow-Up By: 07/16/19 Additional Comments F/U for TF tolerance
--- NOTE | 2019-07-15 09:10 | Progress Note ---
Assessment and Plan 1. Hypoantremia: Suspect SIADH. Sodium level has improved, now 139. Monitor Sodium level. 2. FEN: Metabolic acidosis, improved, monitor. Hypokalemia, K level is better, monitor. Monitor volume status and lytes. 3. Acute hypoxic respiratory failure: Currently intubated and on vent. Oxygen needs increased overnight. Pulmonary following. 4. Severe Sepsis, POA. Pt spiking temps. Followed by ID. 5. Severe COVID-19 pneumonia. 6. Shock: Back on pressors. Received IV bolus 07/13 for hypotension. Pt still hypotensive at time of dictation. Monitor BP closely. 7. Microcytic anemia, POA: Hgb today 6.8. 1 U PRBC to transfuse. Has received total of 3 units PRBC prior to today's transfusion. Monitor hgb. 8. Diabetes mellitus. 9. COPD. 10. Encephalopathy, POA: Metabolic. Subjective Date of service: 07/15/19 Principal diagnosis: Bilateral pneumonia, severe sepsis with septic shock, encephalopathy Interval history: Patient was only seen from outside the glass door to prevent exposure to COVID- 19. PPE is also limited supply. Reviewed all notes, vitals, and labs to date. Pt spiking temps and oxygen needs were increased overnight per primary RN. Pt had to be placed back on pressors as well for persistent hypotension. Objective - Exam Narrative Exam: General appearance: intubated on ventilator, NGT present, carroll HEENT: not examined Neck: not examined Respiratory: not examined Heart: sinus tach on the monitor Gastrointestinal: not examined Integumentary: not examined Neurologic: not examined Ext: not examined - Vital Signs Vital signs: Vital Signs - 12hr 07/14/19 07/14/19 07/14/19 21:30 22:00 22:30 Temperature Pulse Rate 127 H 126 H 126 H Pulse Rate [ From Monitor] Respiratory 26 H 30 H 29 H Rate Blood Pressure 75/48 88/43 100/43 O2 Sat by Pulse 97 95 92 Oximetry 07/14/19 07/14/19 07/14/19 23:00 23:30 23:37 Temperature 97.8 F Pulse Rate 127 H 123 H Pulse Rate [ From Monitor] Respiratory 25 H 24 Rate Blood Pressure 92/50 85/46 O2 Sat by Pulse 97 96 Oximetry 07/15/19 07/15/19 07/15/19 00:00 00:30 00:51 Temperature Pulse Rate 120 H 121 H 120 H Pulse Rate [ 118 H From Monitor] Respiratory 26 H 27 H Rate Blood Pressure 73/46 79/43 75/40 O2 Sat by Pulse 99 96 97 Oximetry 07/15/19 07/15/19 07/15/19 01:00 01:30 02:00 Temperature Pulse Rate 122 H 123 H 122 H Pulse Rate [ From Monitor] Respiratory 24 26 H 26 H Rate Blood Pressure 68/44 80/42 75/43 O2 Sat by Pulse 95 97 98 Oximetry 07/15/19 07/15/19 07/15/19 02:30 03:00 03:30 Temperature Pulse Rate 120 H 122 H 123 H Pulse Rate [ From Monitor] Respiratory 26 H 26 H 27 H Rate Blood Pressure 84/43 73/46 75/45 O2 Sat by Pulse 97 98 96 Oximetry 07/15/19 07/15/19 07/15/19 03:37 04:00 04:30 Temperature 98.7 F Pulse Rate 124 H 125 H Pulse Rate [ 124 H From Monitor] Respiratory 25 H 25 H Rate Blood Pressure 88/48 88/48 O2 Sat by Pulse 96 98 Oximetry 07/15/19 07/15/19 07/15/19 04:35 05:00 05:30 Temperature Pulse Rate 124 H 130 H 129 H Pulse Rate [ From Monitor] Respiratory 32 H 30 H Rate Blood Pressure 88/48 87/60 98/51 O2 Sat by Pulse 98 96 98 Oximetry 07/15/19 07/15/19 07/15/19 06:00 06:30 06:40 Temperature Pulse Rate 129 H 127 H 128 H Pulse Rate [ From Monitor] Respiratory 28 H 28 H Rate Blood Pressure 93/53 96/53 83/45 O2 Sat by Pulse 98 98 Oximetry 07/15/19 07/15/19 07/15/19 07:00 07:30 07:58 Temperature 100.3 F H Pulse Rate 125 H 124 H 124 H Pulse Rate [ From Monitor] Respiratory 28 H 27 H 27 H Rate Blood Pressure 93/51 96/51 101/56 O2 Sat by Pulse 98 99 99 Oximetry 07/15/19 07/15/19 07/15/19 08:00 08:13 08:43 Temperature 100.3 F H 100.3 F H 100.2 F H Pulse Rate 125 H 126 H 122 H Pulse Rate [ 125 H From Monitor] Respiratory 26 H 28 H 30 H Rate Blood Pressure 103/52 103/52 90/47 O2 Sat by Pulse 98 98 98 Oximetry - Lab 07/15/19 05:18 07/15/19 05:18 Most recent lab results ABG pH 7.342 pH Units (7.350-7.450) L 07/15/19 04:35 ABG pCO2 42.2 mm Hg 07/15/19 04:35 ABG pO2 88.5 mm Hg (80.0-90.0) 07/15/19 04:35 ABG HCO3 22.4 mmol/L (20.0-26.0) 07/15/19 04:35 ABG O2 Saturation 96.8 % (95.0-99.0) 07/15/19 04:35 Calcium 8.4 mg/dL (8.4-10.2) 07/15/19 05:18 Phosphorus 3.60 mg/dL (2.5-4.5) 07/05/19 04:00 Magnesium 1.80 mg/dL (1.7-2.3) 07/11/19 05:14 Medications & Allergies - Medications Allergies/Adverse Reactions: Allergies No Known Allergies Allergy (Unverified 09/09/16 16:29) Home Medications: Home Medications Medication Instructions Recorded Confirmed Last Taken Type Acetaminophen [Tylenol] 500 mg PO TID 07/04/19 07/04/19 Unknown History Albuterol Sulfate [Proair 90 mcg IH TID 07/04/19 07/04/19 Unknown History Digihaler] Amlodipine Besylate [Norvasc] 2.5 mg PO QDAY 07/04/19 07/04/19 Unknown History Aspirin [Aspirin BABY CHEW TAB] 81 mg PO QDAY 07/04/19 07/04/19 Unknown History Atorvastatin Calcium [Lipitor] 80 mg PO QDAY 07/04/19 07/04/19 Unknown History Benztropine Mesylate 0.5 mg PO QDAY 07/04/19 07/04/19 Unknown History Budesonide/Formoterol Fumarate 10.2 gm IH BID 07/04/19 07/04/19 Unknown History [Budesonide-Formoterol 160-4.5] Divalproex ER [DepaKOTE ER] 1,000 mg PO QDAY 07/04/19 07/04/19 Unknown History Docusate Sodium [Colace] 100 mg PO QDAY 07/04/19 07/04/19 Unknown History Folic Acid [Folvite] 1 mg PO QDAY 07/04/19 07/04/19 Unknown History Hydrophilic Ointment [Dermafix] 113 gm TP QDAY 07/04/19 07/04/19 Unknown History Losartan [Cozaar] 100 mg PO QDAY 07/04/19 07/04/19 Unknown History Metformin HCl [Metformin HCl ER] 500 mg PO QDAY 07/04/19 07/04/19 Unknown History Metoprolol Tartrate 25 mg PO BID 07/04/19 07/04/19 Unknown History Multivit with Minerals/Ginseng 1 each PO QDAY 07/04/19 07/04/19 Unknown History [Super Ginseng Multivit Cap] Quetiapine Fumarate [SEROquel Xr] 400 mg PO QHS 07/04/19 07/04/19 Unknown History Sertraline HCl [Zoloft] 100 mg PO QDAY 07/04/19 07/04/19 Unknown History Sildenafil Citrate [Viagra] 100 mg PO QDAY PRN 07/04/19 07/04/19 Unknown History Tamsulosin [Flomax] 0.4 mg PO QDAY 07/04/19 07/04/19 Unknown History Active Medications: Generic Name Dose Route Start Last Admin Trade Name Freq PRN Reason Stop Dose Admin Acetaminophen 650 mg 07/04/19 04:24 Tylenol [place] Q6H PRN Pain MILD(1-3)/Fever >100.5/MURO Acetaminophen 650 mg 07/10/19 04:00 07/15/19 07:41 Tylenol PO 650 mg Q6HR PRN Administration Pain, Mild (1-3) FEVER Lipase/Protease/Amylase 1 each 07/04/19 10:[address] 10,500 Unit FEEDTUBE PRN PRN For Clogged Feeding Tube Aspirin 81 mg 07/05/19 10:00 07/14/19 09:34 Baby Aspirin PO 81 mg QDAY TAMMIE Administration Dextrose 50 ml 07/04/19 06:54 D50w (25gm) Syringe IV Q30MIN PRN Hypoglycemia Protocol Docusate Sodium 100 mg 07/10/19 10:00 07/14/19 22:00 Colace PO 100 mg BID TAMMIE Administration Famotidine 20 mg 07/10/19 10:00 07/14/19 21:58 Pepcid PO 20 mg BID TAMMIE Administration Fentanyl 50 mcg 07/12/19 15:09 Sublimaze IV Q10MIN PRN ANALGESIA Folic Acid 1 mg 07/05/19 10:00 07/14/19 09:35 Folvite PO 1 mg QDAY TAMMIE Administration Hydrophilic Ointment 1 applic 07/03/19 19:56 07/05/19 17:42 Vaseline Lip Therapy TP 1 applic Q2HR PRN Administration Dry Lips Norepinephrine 4 mg in 250 mls @ 7.5 mls/hr 07/03/19 23:00 07/15/19 08:01 Levophed Drip 4 Mg/Ns 250 Ml IV 2 mcg/min TITR TAMMIE 7.5 mls/hr Titration Protocol 2 MCG/MIN Fentanyl Citrate 2,000 mcg in 100 mls @ 4.25 mls/hr 07/12/19 16:00 07/14/19 21:59 Fentanyl Drip Premix IV 1 mcg/kg/hr TITR TAMMIE 4.25 mls/hr Administration Protocol 1 MCG/KG/HR Sodium Chloride 1,000 mls @ 75 mls/hr 07/13/19 16:15 07/14/19 09:40 Nacl 0.9% 1000 Ml IV 07/16/19 05:34 75 mls/hr DIRECT TAMMIE Administration Insulin Human Lispro 0 unit 07/07/19 12:00 07/15/19 06:40 Humalog SUB-Q Not Given Q6HR [facility] Protocol Levetiracetam 750 mg 07/06/19 11:00 07/14/19 22:00 Keppra FEEDTUBE 750 mg Q12HR TAMMIE Administration Metoprolol Tartrate 5 mg 07/12/19 15:08 07/12/19 15:30 Metoprolol IV 5 mg Q6HR PRN Administration Tachyarrhythmias Metoprolol Tartrate 12.5 mg 07/12/19 16:00 07/15/19 06:40 Metoprolol PO Not Given BID TAMMIE Morphine Sulfate 2 mg 07/04/19 04:24 07/13/19 08:06 Morphine IV 2 mg Q4H PRN Administration Pain, Moderate (4-6) Multi-Ingred Cream/Lotion/Oil/Oint 1 applic 07/03/19 19:56 07/05/19 13:19 Artificial Tears Ophth Oint OU 1 applic Q4HR PRN Administration Dry Eye(s) Naloxone HCl 0.1 mg 07/04/19 04:24 Naloxone IV Q2MIN PRN Res Rate </= 8 or 02 SAT < 92% Scopolamine 1 each 07/10/19 11:00 07/13/19 10:20 Transderm-Scop TD 1 each Q3D TAMMIE Administration Simple Syrup 15 ml 07/04/19 10:04 07/10/19 21:56 Simple Syrup FEEDTUBE 15 ml PRN PRN Administration Hypoglycemia Simple Syrup 30 ml 07/04/19 10:04 Simple Syrup FEEDTUBE PRN PRN Hypoglycemia Sodium Bicarbonate 325 mg 07/04/19 10:04 Sodium Bicarbonate FEEDTUBE PRN PRN For Clogged Feeding Tube Sodium Chloride 10 ml 07/04/19 10:00 07/14/19 09:35 Sodium Chloride Flush Syringe 10 Ml IV 10 ml BID TAMMIE Administration Sodium Chloride 10 ml 07/04/19 04:24 Sodium Chloride Flush Syringe 10 Ml IV PRN PRN LINE FLUSH Sodium Hypochlorite 1 applic 07/10/19 14:00 07/15/19 06:42 Dakin's Half Strength TP 1 applicatio BID TAMMIE Administration
[2019-07-15] MEDS: levETIRAcetam 500 MG/5 ML ORAL LIQD FEEDTUBE SCH ×2 (10:13→21:18)
[2019-07-15] MEDS: FAMOTIDINE 20 MG TAB PO SCH ×2 (10:13→21:19)
[2019-07-15] MEDS: FOLIC ACID 1 MG TAB PO SCH (10:13)
[2019-07-15] MEDS: DOCUSATE SODIUM 100 MG/10 ML ORAL LIQD PO SCH ×2 (10:14→21:18)
[2019-07-15] MEDS: ASPIRIN 81 MG TAB CHEW PO SCH (10:14)
--- NOTE | 2019-07-15 13:18 | Progress Note ---
Assessment and Plan S/p Cardiopulmonary arrest with ROSC Severe Sepsis with septic shock. Acute hypoxemic respiratory failure on MVS COVID-19 positive with elevated markers Bilateral pneumonia Elevated LFTs. Oropharyngeal dysphagia s/p PEG Acute kidney injury Decubitus ulcers-unstageable Moderate protein calorie malnutriton [id number] metabolic acidosis Leukocytosis -improving Thrombocytopenia Microcytic anemia -Secretion management, continue Scopolamine -Transfuse 1 unit PRBC -Wean vasopressor support for MAP>65 -Wean FIO2 down to 55% -Continue all critical care as documented below -ABG, CXR in the am, CBC in the am - continue airborne, droplet and contact isolation for COVID-19 - continue wound care per WCT - sedation prn for target RASS 0 to -1 - continue to wean supplemental oxygen for target O2 sat's > 90% - Daily SAT's and SBT assessment as tolerated - VAP bundle addressed - continue lung protective strategies - continue bronchodilators with pulmonary hygiene per RT - wean per pulmonary driven protocols otherwise - accuchecks with glycemic control per SSI (While critically ill target blood glucose of 140-180 mg/dL; avoid hypoglycemia) - continue to avoid benzodiazepines, reduce the possibility of delirium - prn analgesia per CPOT score - Maintenance of sleep-wake cycle, avoid delirium - continue enteral nutritional support at goal rate as tolerated - VTE prophylaxis-SCDs -Stress ulcer prophylaxis- Famotidine - PT/OT/ROM exercises - continue mobility protocol, off loading and skin assessment for pressure ulcer prevention - Monitor hemodynamics closely -Wright catheter in this critically ill patient with unstageable sacral decubitus ulcer -PEG site care - continue other care per attending / other consultants - discharge planning ongoing concurrently .... Re-evaluate in am & prn CONDITION: CRITICAL PROGNOSIS: GUARDED CODE STATUS: DNAR Called his family to discuss goals of care, wants us to continue to treat aggressively at this time. The high probability of a clinically significant, sudden or life-threatening deterioration of the [respiratory & cardiovascular] system(s) required my full and direct attention, intervention and personal management. The aggregate critical care time was [31] minutes without overlap. Time includes spent on; [x] Data Review and interpretation [x] Patient assessment and monitoring of vital signs [x] Documentation [x] Medication orders and management Subjective Date of service: 07/15/19 Principal diagnosis: Bilateral pneumonia, severe sepsis with septic shock, encephalopathy Interval history: The patient is a 69-year-old male with CVA, hypertension, dementia, schizophrenia, alcohol use disorder was admitted to the emergency room after being brought in by EMS with progressive shortness of breath and unresponsiveness. He was noted to have agonal breathing and a faint pulse requiring CPR. Patient was intubated and brought to the hospital. It seems, patient was on home hospice. Currently, remains critically ill, intubated, on mechanical ventilation. His COVID test resulted positive. Patient is seen today for: s/p cardiopulmonary arrest with ROSC;Ac hypoxemic Resp failure on MVS; Severe sepsis with Shock; Bilateral Pneumonia; POSITIVE coronavirus-19 infection. Seen and examined at bedside; 24hour events reviewed; nursing and respiratory care staff consulted; no adverse overnight events reported to me; resting in bed. No reported fevers. On MVS and tolerating it well; back on norepinephrine at 2mcg Tolerating tube feedings, no diarrhea, Mental status changes persist Copious oral and ETT secretions Current setting AC-VC 25/500/60%/PEEP 6 Objective Vital Signs - 12hr 07/15/19 07/15/19 07/15/19 01:30 02:00 02:30 Temperature Pulse Rate 123 H 122 H 120 H Pulse Rate [ From Monitor] Respiratory 26 H 26 H 26 H Rate Blood Pressure 80/42 75/43 84/43 O2 Sat by Pulse 97 98 97 Oximetry 07/15/19 07/15/19 07/15/19 03:00 03:30 03:37 Temperature 98.7 F Pulse Rate 122 H 123 H Pulse Rate [ From Monitor] Respiratory 26 H 27 H Rate Blood Pressure 73/46 75/45 O2 Sat by Pulse 98 96 Oximetry 07/15/19 07/15/19 07/15/19 04:00 04:30 04:35 Temperature Pulse Rate 124 H 125 H 124 H Pulse Rate [ 124 H From Monitor] Respiratory 25 H 25 H Rate Blood Pressure 88/48 88/48 88/48 O2 Sat by Pulse 96 98 98 Oximetry 07/15/19 07/15/19 07/15/19 05:00 05:30 06:00 Temperature Pulse Rate 130 H 129 H 129 H Pulse Rate [ From Monitor] Respiratory 32 H 30 H 28 H Rate Blood Pressure 87/60 98/51 93/53 O2 Sat by Pulse 96 98 98 Oximetry 07/15/19 07/15/19 07/15/19 06:30 06:40 07:00 Temperature Pulse Rate 127 H 128 H 125 H Pulse Rate [ From Monitor] Respiratory 28 H 28 H Rate Blood Pressure 96/53 83/45 93/51 O2 Sat by Pulse 98 98 Oximetry 07/15/19 07/15/19 07/15/19 07:30 07:58 08:00 Temperature 100.3 F H 100.3 F H Pulse Rate 124 H 124 H 125 H Pulse Rate [ 125 H From Monitor] Respiratory 27 H 27 H 26 H Rate Blood Pressure 96/51 101/56 103/52 O2 Sat by Pulse 99 99 98 Oximetry 07/15/19 07/15/19 07/15/19 08:13 08:30 08:43 Temperature 100.3 F H 100.2 F H Pulse Rate 126 H 123 H 122 H Pulse Rate [ From Monitor] Respiratory 28 H 29 H 30 H Rate Blood Pressure 103/52 90/47 90/47 O2 Sat by Pulse 98 96 98 Oximetry 07/15/19 07/15/19 07/15/19 09:00 09:13 09:30 Temperature 100.5 F H Pulse Rate 121 H 121 H 122 H Pulse Rate [ From Monitor] Respiratory 28 H 28 H 30 H Rate Blood Pressure 78/48 83/50 85/52 O2 Sat by Pulse 98 98 Oximetry 07/15/19 07/15/19 07/15/19 09:43 10:00 10:12 Temperature 100.1 F H 100.2 F H Pulse Rate 122 H 123 H 124 H Pulse Rate [ From Monitor] Respiratory 30 H 30 H 31 H Rate Blood Pressure 85/52 99/52 99/52 O2 Sat by Pulse 98 97 98 Oximetry 07/15/19 07/15/19 07/15/19 10:30 11:00 11:20 Temperature Pulse Rate 117 H 103 H 107 H Pulse Rate [ From Monitor] Respiratory 31 H 29 H Rate Blood Pressure 91/52 94/52 99/55 O2 Sat by Pulse 96 95 Oximetry 07/15/19 07/15/19 07/15/19 11:30 11:38 12:00 Temperature Pulse Rate 108 H 110 H 112 H Pulse Rate [ 112 H From Monitor] Respiratory 29 H 28 H Rate Blood Pressure 103/58 104/58 100/59 O2 Sat by Pulse 97 99 97 Oximetry Constitutional: appears uncomfortable, other (eelderly and chronically ill looking AAM, normocep[krystina;ic with mildly increased respiratory effort at rest) Eyes: non-icteric ENT: oropharynx moist, other (ETT 24 cm RUTH) Neck: supple, no lymphadenopathy, no JVD Effort: mildly labored Ascultation: Bilateral: diminished breath sounds, rhonchi Percussion: Bilateral: not dull Cardiovascular: regular rate and rhythm Gastrointestinal: normoactive bowel sounds, soft, non-tender, non-distended, other (+ PEG tube with mild TF leakage) Integumentary: decubitus ulcer Extremities: no cyanosis, no edema, pink and warm, pulses normal Neurologic: unable to assess Psychiatric: other (Unable to assess re: AMS) CBC and BMP: 07/19/19 08:45 07/18/19 05:22 ABG, PT/INR, D-dimer: ABG ABG pH 7.342 pH Units (7.350-7.450) L 07/15/19 04:35 ABG pCO2 42.2 mm Hg 07/15/19 04:35 ABG pO2 88.5 mm Hg (80.0-90.0) 07/15/19 04:35 ABG O2 Saturation 96.8 % (95.0-99.0) 07/15/19 04:35 PT/INR, D-dimer PT 16.0 Sec. (12.2-14.9) H 07/03/19 22:20 INR 1.26 (0.87-1.13) H 07/03/19 22:20 D-Dimer 1142.18 ng/mlDDU (0-234) H 07/08/19 00:45 Abnormal lab findings: Abnormal Labs 07/03/19 07/03/19 07/03/19 19:57 21:10 21:13 WBC RBC Hgb Hct MCV MCH MCHC RDW Plt Count Seg Neuts % (Manual) Lymphocytes % (Manual) Seg Neutrophils # Man Lymphocytes # (Manual) PT INR D-Dimer ABG pH 7.238 L ABG pO2 210.8 H ABG HCO3 15.4 L ABG O2 Saturation 99.2 H ABG Base Excess -11.1 L ABG Hemoglobin 8.0 L Oxyhemoglobin Sodium 124 L Potassium Chloride 92.9 L Carbon Dioxide 10 L BUN 23 H Creatinine 0.5 L Glucose 118 H POC Glucose Lactic Acid Calcium 7.0 L Magnesium Iron TIBC Ferritin AST 70 H ALT 88 H Lactate Dehydrogenase Troponin T 0.032 H C-Reactive Protein Total Protein 5.0 L Albumin 1.8 L Cholesterol 47 L LDL Cholesterol Direct 25 L HDL Cholesterol 20 L Urine WBC (Auto) 12.0 H Vancomycin Trough Coronavirus (PCR) Crossmatch 07/03/19 07/03/19 07/03/19 22:20 22:20 22:20 WBC 30.5 H RBC 2.96 L Hgb 7.7 L Hct 23.9 L MCV 81 L MCH 26 L MCHC RDW 18.6 H Plt Count 459 H Seg Neuts % (Manual) 93.0 H Lymphocytes % (Manual) 0.5 L Seg Neutrophils # Man 28.4 H Lymphocytes # (Manual) 0.2 L PT 16.0 H INR 1.26 H D-Dimer ABG pH ABG pO2 ABG HCO3 ABG O2 Saturation ABG Base Excess ABG Hemoglobin Oxyhemoglobin Sodium Potassium Chloride Carbon Dioxide BUN Creatinine Glucose POC Glucose Lactic Acid 6.90 H* Calcium Magnesium Iron TIBC Ferritin AST ALT Lactate Dehydrogenase Troponin T C-Reactive Protein Total Protein Albumin Cholesterol LDL Cholesterol Direct HDL Cholesterol Urine WBC (Auto) Vancomycin Trough Coronavirus (PCR) Crossmatch 07/03/19 07/04/19 07/04/19 23:58 05:15 07:05 WBC 17.1 H RBC 3.22 L Hgb 8.3 L Hct 25.4 L MCV 79 L MCH 26 L MCHC RDW 18.6 H Plt Count Seg Neuts % (Manual) 74.0 H Lymphocytes % (Manual) 0 L Seg Neutrophils # Man 12.7 H Lymphocytes # (Manual) 0.0 L PT INR D-Dimer ABG pH 7.310 L ABG pO2 73.2 L ABG HCO3 17.8 L ABG O2 Saturation 93.8 L ABG Base Excess -7.7 L ABG Hemoglobin 9.6 L Oxyhemoglobin 92.3 L Sodium Potassium Chloride Carbon Dioxide BUN Creatinine Glucose POC Glucose Lactic Acid 7.10 H* Calcium Magnesium Iron TIBC Ferritin AST ALT Lactate Dehydrogenase Troponin T C-Reactive Protein Total Protein Albumin Cholesterol LDL Cholesterol Direct HDL Cholesterol Urine WBC (Auto) Vancomycin Trough Coronavirus (PCR) Crossmatch 07/04/19 07/04/19 07/04/19 07:05 07:05 07:05 WBC RBC Hgb Hct MCV MCH MCHC RDW Plt Count Seg Neuts % (Manual) Lymphocytes % (Manual) Seg Neutrophils # Man Lymphocytes # (Manual) PT INR D-Dimer ABG pH ABG pO2 ABG HCO3 ABG O2 Saturation ABG Base Excess ABG Hemoglobin Oxyhemoglobin Sodium 120 L Potassium 5.1 H Chloride 90.0 L Carbon Dioxide 14 L BUN 26 H Creatinine 0.5 L Glucose POC Glucose Lactic Acid 3.30 H* Calcium 8.0 L Magnesium Iron 9 L TIBC 97 L Ferritin AST 73 H ALT 91 H Lactate Dehydrogenase Troponin T C-Reactive Protein Total Protein 5.5 L Albumin 2.0 L Cholesterol LDL Cholesterol Direct HDL Cholesterol Urine WBC (Auto) Vancomycin Trough Coronavirus (PCR) Crossmatch 07/04/19 07/04/19 07/04/19 09:39 09:39 09:39 WBC RBC Hgb Hct MCV MCH MCHC RDW Plt Count Seg Neuts % (Manual) Lymphocytes % (Manual) Seg Neutrophils # Man Lymphocytes # (Manual) PT INR D-Dimer 1419.14 H ABG pH ABG pO2 ABG HCO3 ABG O2 Saturation ABG Base Excess ABG Hemoglobin Oxyhemoglobin Sodium Potassium Chloride Carbon Dioxide BUN Creatinine Glucose POC Glucose Lactic Acid Calcium Magnesium Iron TIBC Ferritin 1719.0 H AST ALT Lactate Dehydrogenase 234 H Troponin T C-Reactive Protein 15.50 H Total Protein Albumin Cholesterol LDL Cholesterol Direct HDL Cholesterol Urine WBC (Auto) Vancomycin Trough Coronavirus (PCR) Crossmatch 07/04/19 07/04/19 07/04/19 10:09 18:08 18:28 WBC RBC Hgb Hct MCV MCH MCHC RDW Plt Count Seg Neuts % (Manual) Lymphocytes % (Manual) Seg Neutrophils # Man Lymphocytes # (Manual) PT INR D-Dimer ABG pH ABG pO2 ABG HCO3 ABG O2 Saturation ABG Base Excess ABG Hemoglobin Oxyhemoglobin Sodium 117 L* Potassium 5.6 H Chloride 90.3 L Carbon Dioxide 16 L BUN 28 H Creatinine 0.5 L Glucose 58 L POC Glucose 65 L Lactic Acid Calcium 8.2 L Magnesium Iron TIBC Ferritin AST ALT Lactate Dehydrogenase Troponin T C-Reactive Protein Total Protein Albumin Cholesterol LDL Cholesterol Direct HDL Cholesterol Urine WBC (Auto) Vancomycin Trough Coronavirus (PCR) Positive A Crossmatch 07/04/19 07/04/19 07/04/19 23:45 Unknown Unknown WBC RBC Hgb Hct MCV MCH MCHC RDW Plt Count Seg Neuts % (Manual) Lymphocytes % (Manual) Seg Neutrophils # Man Lymphocytes # (Manual) PT INR D-Dimer 759.77 H ABG pH ABG pO2 ABG HCO3 ABG O2 Saturation ABG Base Excess ABG Hemoglobin Oxyhemoglobin Sodium 122 L Potassium Chloride 93.0 L Carbon Dioxide 19 L BUN 27 H Creatinine 0.5 L Glucose POC Glucose Lactic Acid Calcium 8.3 L Magnesium Iron TIBC Ferritin 1301.0 H AST ALT Lactate Dehydrogenase Troponin T C-Reactive Protein Total Protein Albumin Cholesterol LDL Cholesterol Direct HDL Cholesterol Urine WBC (Auto) Vancomycin Trough Coronavirus (PCR) Crossmatch 07/04/19 07/05/19 07/05/19 Unknown 03:20 04:00 WBC RBC Hgb Hct MCV MCH MCHC RDW Plt Count Seg Neuts % (Manual) Lymphocytes % (Manual) Seg Neutrophils # Man Lymphocytes # (Manual) PT INR D-Dimer ABG pH ABG pO2 60.6 L ABG HCO3 ABG O2 Saturation 93.5 L ABG Base Excess -2.4 L ABG Hemoglobin 6.9 L Oxyhemoglobin 92.0 L Sodium 125 L Potassium Chloride 92.6 L Carbon Dioxide 19 L BUN 24 H Creatinine 0.6 L Glucose POC Glucose Lactic Acid Calcium 8.2 L Magnesium 1.40 L Iron TIBC Ferritin AST ALT Lactate Dehydrogenase 242 H Troponin T C-Reactive Protein 16.70 H Total Protein Albumin Cholesterol LDL Cholesterol Direct HDL Cholesterol Urine WBC (Auto) Vancomycin Trough Coronavirus (PCR) Crossmatch 07/05/19 07/05/19 07/05/19 10:11 16:15 17:54 WBC 46.4 H* RBC 2.77 L Hgb 7.2 L Hct 21.9 L MCV 79 L MCH 26 L MCHC RDW 19.0 H Plt Count Seg Neuts % (Manual) 82.0 H Lymphocytes % (Manual) 1.0 L Seg Neutrophils # Man 38.0 H Lymphocytes # (Manual) 0.5 L PT INR D-Dimer ABG pH ABG pO2 ABG HCO3 ABG O2 Saturation ABG Base Excess ABG Hemoglobin Oxyhemoglobin Sodium Potassium Chloride Carbon Dioxide BUN Creatinine Glucose POC Glucose 69 L Lactic Acid Calcium Magnesium Iron TIBC Ferritin AST ALT Lactate Dehydrogenase Troponin T C-Reactive Protein Total Protein Albumin Cholesterol LDL Cholesterol Direct HDL Cholesterol Urine WBC (Auto) Vancomycin Trough 23.2 H Coronavirus (PCR) Crossmatch 07/05/19 07/06/19 07/06/19 19:58 00:27 00:27 WBC RBC Hgb Hct MCV MCH MCHC RDW Plt Count Seg Neuts % (Manual) Lymphocytes % (Manual) Seg Neutrophils # Man Lymphocytes # (Manual) PT INR D-Dimer 1333.22 H ABG pH ABG pO2 ABG HCO3 ABG O2 Saturation ABG Base Excess ABG Hemoglobin Oxyhemoglobin Sodium 127 L Potassium Chloride Carbon Dioxide BUN Creatinine Glucose POC Glucose Lactic Acid Calcium Magnesium Iron TIBC Ferritin 977.1 H AST ALT Lactate Dehydrogenase Troponin T C-Reactive Protein Total Protein Albumin Cholesterol LDL Cholesterol Direct HDL Cholesterol Urine WBC (Auto) Vancomycin Trough Coronavirus (PCR) Crossmatch 07/06/19 07/06/19 07/06/19 00:27 02:00 02:56 WBC RBC Hgb Hct MCV MCH MCHC RDW Plt Count Seg Neuts % (Manual) Lymphocytes % (Manual) Seg Neutrophils # Man Lymphocytes # (Manual) PT INR D-Dimer ABG pH ABG pO2 70.3 L ABG HCO3 ABG O2 Saturation 94.8 L ABG Base Excess ABG Hemoglobin 8.0 L Oxyhemoglobin 93.2 L Sodium Potassium Chloride Carbon Dioxide BUN Creatinine Glucose POC Glucose 117 H Lactic Acid Calcium Magnesium Iron TIBC Ferritin AST ALT Lactate Dehydrogenase 236 H Troponin T C-Reactive Protein 22.90 H Total Protein Albumin Cholesterol LDL Cholesterol Direct HDL Cholesterol Urine WBC (Auto) Vancomycin Trough Coronavirus (PCR) Crossmatch 07/06/19 07/06/19 07/06/19 03:49 03:49 07:40 WBC 38.8 H RBC 2.51 L Hgb 6.7 L Hct 19.9 L* MCV 79 L MCH 27 L MCHC RDW 19.2 H Plt Count Seg Neuts % (Manual) 90.5 H Lymphocytes % (Manual) 1.0 L Seg Neutrophils # Man 35.1 H Lymphocytes # (Manual) 0.4 L PT INR D-Dimer ABG pH ABG pO2 ABG HCO3 ABG O2 Saturation ABG Base Excess ABG Hemoglobin Oxyhemoglobin Sodium 131 L Potassium Chloride 96.9 L Carbon Dioxide 18 L BUN 23 H Creatinine 0.5 L Glucose POC Glucose Lactic Acid Calcium 8.0 L Magnesium Iron TIBC Ferritin AST ALT Lactate Dehydrogenase Troponin T C-Reactive Protein Total Protein Albumin Cholesterol LDL Cholesterol Direct HDL Cholesterol Urine WBC (Auto) Vancomycin Trough Coronavirus (PCR) Crossmatch See Detail 07/06/19 07/06/19 07/06/19 12:38 14:39 20:00 WBC RBC Hgb Hct MCV MCH MCHC RDW Plt Count Seg Neuts % (Manual) Lymphocytes % (Manual) Seg Neutrophils # Man Lymphocytes # (Manual) PT INR D-Dimer ABG pH ABG pO2 ABG HCO3 ABG O2 Saturation ABG Base Excess ABG Hemoglobin Oxyhemoglobin Sodium Potassium Chloride Carbon Dioxide BUN Creatinine Glucose POC Glucose 112 H 111 H 140 H Lactic Acid Calcium Magnesium Iron TIBC Ferritin AST ALT Lactate Dehydrogenase Troponin T C-Reactive Protein Total Protein Albumin Cholesterol LDL Cholesterol Direct HDL Cholesterol Urine WBC (Auto) Vancomycin Trough Coronavirus (PCR) Crossmatch 07/06/19 07/06/19 07/07/19 22:43 22:56 02:20 WBC RBC Hgb 7.9 L Hct 23.1 L MCV MCH MCHC RDW Plt Count Seg Neuts % (Manual) Lymphocytes % (Manual) Seg Neutrophils # Man Lymphocytes # (Manual) PT INR D-Dimer ABG pH ABG pO2 ABG HCO3 ABG O2 Saturation ABG Base Excess ABG Hemoglobin Oxyhemoglobin Sodium Potassium Chloride Carbon Dioxide BUN Creatinine Glucose POC Glucose 122 H 149 H Lactic Acid Calcium Magnesium Iron TIBC Ferritin AST ALT Lactate Dehydrogenase Troponin T C-Reactive Protein Total Protein Albumin Cholesterol LDL Cholesterol Direct HDL Cholesterol Urine WBC (Auto) Vancomycin Trough Coronavirus (PCR) Crossmatch 07/07/19 07/07/19 07/07/19 04:35 05:27 05:34 WBC 23.1 H RBC 3.00 L Hgb 8.1 L Hct 24.2 L MCV 81 L MCH 27 L MCHC RDW 20.6 H Plt Count Seg Neuts % (Manual) 90.0 H Lymphocytes % (Manual) 2.0 L Seg Neutrophils # Man 20.8 H Lymphocytes # (Manual) 0.5 L PT INR D-Dimer ABG pH ABG pO2 65.8 L ABG HCO3 ABG O2 Saturation 92.2 L ABG Base Excess ABG Hemoglobin 8.3 L Oxyhemoglobin 90.6 L Sodium Potassium Chloride Carbon Dioxide BUN Creatinine Glucose POC Glucose 132 H Lactic Acid Calcium Magnesium Iron TIBC Ferritin AST ALT Lactate Dehydrogenase Troponin T C-Reactive Protein Total Protein Albumin Cholesterol LDL Cholesterol Direct HDL Cholesterol Urine WBC (Auto) Vancomycin Trough Coronavirus (PCR) Crossmatch 07/07/19 07/07/19 07/07/19 05:34 11:50 15:58 WBC RBC Hgb 8.1 L Hct 24.2 L MCV MCH MCHC RDW Plt Count Seg Neuts % (Manual) Lymphocytes % (Manual) Seg Neutrophils # Man Lymphocytes # (Manual) PT INR D-Dimer ABG pH ABG pO2 ABG HCO3 ABG O2 Saturation ABG Base Excess ABG Hemoglobin Oxyhemoglobin Sodium 135 L Potassium 3.3 L Chloride Carbon Dioxide 20 L BUN 27 H Creatinine 0.6 L Glucose 121 H POC Glucose 123 H Lactic Acid Calcium 8.0 L Magnesium Iron TIBC Ferritin AST ALT Lactate Dehydrogenase Troponin T C-Reactive Protein Total Protein Albumin Cholesterol LDL Cholesterol Direct HDL Cholesterol Urine WBC (Auto) Vancomycin Trough Coronavirus (PCR) Crossmatch 07/07/19 07/07/19 07/07/19 17:42 22:00 23:53 WBC RBC Hgb 8.0 L Hct 23.4 L MCV MCH MCHC RDW Plt Count Seg Neuts % (Manual) Lymphocytes % (Manual) Seg Neutrophils # Man Lymphocytes # (Manual) PT INR D-Dimer ABG pH ABG pO2 ABG HCO3 ABG O2 Saturation ABG Base Excess ABG Hemoglobin Oxyhemoglobin Sodium Potassium Chloride Carbon Dioxide BUN Creatinine Glucose POC Glucose 107 H 117 H Lactic Acid Calcium Magnesium Iron TIBC Ferritin AST ALT Lactate Dehydrogenase Troponin T C-Reactive Protein Total Protein Albumin Cholesterol LDL Cholesterol Direct HDL Cholesterol Urine WBC (Auto) Vancomycin Trough Coronavirus (PCR) Crossmatch 07/08/19 07/08/19 07/08/19 00:45 00:45 00:45 WBC RBC Hgb Hct MCV MCH MCHC RDW Plt Count Seg Neuts % (Manual) Lymphocytes % (Manual) Seg Neutrophils # Man Lymphocytes # (Manual) PT INR D-Dimer 1142.18 H ABG pH ABG pO2 ABG HCO3 ABG O2 Saturation ABG Base Excess ABG Hemoglobin Oxyhemoglobin Sodium Potassium Chloride Carbon Dioxide BUN Creatinine Glucose POC Glucose Lactic Acid Calcium Magnesium Iron TIBC Ferritin 839.0 H AST ALT Lactate Dehydrogenase 253 H Troponin T C-Reactive Protein 18.90 H Total Protein Albumin Cholesterol LDL Cholesterol Direct HDL Cholesterol Urine WBC (Auto) Vancomycin Trough Coronavirus (PCR) Crossmatch 04/07/08/19 07/08/19 04:30 05:11 12:02 WBC RBC Hgb Hct MCV MCH MCHC RDW Plt Count Seg Neuts % (Manual) Lymphocytes % (Manual) Seg Neutrophils # Man Lymphocytes # (Manual) PT INR D-Dimer ABG pH ABG pO2 66.0 L ABG HCO3 ABG O2 Saturation 92.3 L ABG Base Excess ABG Hemoglobin 7.7 L Oxyhemoglobin 90.7 L Sodium Potassium Chloride Carbon Dioxide BUN Creatinine Glucose POC Glucose 108 H 153 H Lactic Acid Calcium Magnesium Iron TIBC Ferritin AST ALT Lactate Dehydrogenase Troponin T C-Reactive Protein Total Protein Albumin Cholesterol LDL Cholesterol Direct HDL Cholesterol Urine WBC (Auto) Vancomycin Trough Coronavirus (PCR) Crossmatch 07/08/19 07/08/19 07/08/19 16:15 18:22 23:35 WBC RBC Hgb Hct MCV MCH MCHC RDW Plt Count Seg Neuts % (Manual) Lymphocytes % (Manual) Seg Neutrophils # Man Lymphocytes # (Manual) PT INR D-Dimer ABG pH ABG pO2 ABG HCO3 ABG O2 Saturation ABG Base Excess ABG Hemoglobin Oxyhemoglobin Sodium 134 L Potassium 3.3 L Chloride Carbon Dioxide 21 L BUN 27 H Creatinine 0.6 L Glucose 146 H POC Glucose 134 H 133 H Lactic Acid Calcium Magnesium Iron TIBC Ferritin AST ALT Lactate Dehydrogenase Troponin T C-Reactive Protein Total Protein Albumin Cholesterol LDL Cholesterol Direct HDL Cholesterol Urine WBC (Auto) Vancomycin Trough Coronavirus (PCR) Crossmatch 07/09/19 07/09/19 07/09/19 04:30 04:30 05:00 WBC 18.9 H RBC 2.77 L Hgb 7.4 L Hct 22.8 L MCV 82 L MCH 27 L MCHC RDW 20.9 H Plt Count 130 L Seg Neuts % (Manual) 84.0 H Lymphocytes % (Manual) 0 L Seg Neutrophils # Man 15.9 H Lymphocytes # (Manual) 0.0 L PT INR D-Dimer ABG pH ABG pO2 ABG HCO3 ABG O2 Saturation ABG Base Excess ABG Hemoglobin Oxyhemoglobin Sodium Potassium 3.1 L Chloride Carbon Dioxide BUN 26 H Creatinine 0.5 L Glucose 125 H POC Glucose 155 H Lactic Acid Calcium Magnesium Iron TIBC Ferritin AST ALT Lactate Dehydrogenase Troponin T C-Reactive Protein Total Protein Albumin Cholesterol LDL Cholesterol Direct HDL Cholesterol Urine WBC (Auto) Vancomycin Trough Coronavirus (PCR) Crossmatch 07/09/19 07/09/19 07/09/19 05:55 12:22 17:50 WBC RBC Hgb Hct MCV MCH MCHC RDW Plt Count Seg Neuts % (Manual) Lymphocytes % (Manual) Seg Neutrophils # Man Lymphocytes # (Manual) PT INR D-Dimer ABG pH ABG pO2 62.8 L ABG HCO3 ABG O2 Saturation ABG Base Excess ABG Hemoglobin 6.1 L Oxyhemoglobin 93.9 L Sodium Potassium Chloride Carbon Dioxide BUN Creatinine Glucose POC Glucose 115 H 133 H Lactic Acid Calcium Magnesium Iron TIBC Ferritin AST ALT Lactate Dehydrogenase Troponin T C-Reactive Protein Total Protein Albumin Cholesterol LDL Cholesterol Direct HDL Cholesterol Urine WBC (Auto) Vancomycin Trough Coronavirus (PCR) Crossmatch 07/10/19 07/10/19 07/10/19 00:38 04:00 04:00 WBC RBC Hgb Hct MCV MCH MCHC RDW Plt Count Seg Neuts % (Manual) Lymphocytes % (Manual) Seg Neutrophils # Man Lymphocytes # (Manual) PT INR D-Dimer ABG pH ABG pO2 ABG HCO3 ABG O2 Saturation ABG Base Excess ABG Hemoglobin Oxyhemoglobin Sodium Potassium Chloride 107.9 H Carbon Dioxide BUN 26 H Creatinine 0.4 L Glucose 137 H POC Glucose 122 H Lactic Acid Calcium Magnesium 1.50 L Iron TIBC Ferritin AST ALT Lactate Dehydrogenase 277 H Troponin T C-Reactive Protein 15.10 H Total Protein Albumin Cholesterol LDL Cholesterol Direct HDL Cholesterol Urine WBC (Auto) Vancomycin Trough Coronavirus (PCR) Crossmatch 07/10/19 07/10/19 07/10/19 04:07 05:21 17:25 WBC RBC Hgb Hct MCV MCH MCHC RDW Plt Count Seg Neuts % (Manual) Lymphocytes % (Manual) Seg Neutrophils # Man Lymphocytes # (Manual) PT INR D-Dimer ABG pH ABG pO2 65.6 L ABG HCO3 26.3 H ABG O2 Saturation ABG Base Excess ABG Hemoglobin 6.7 L Oxyhemoglobin Sodium Potassium Chloride Carbon Dioxide BUN Creatinine Glucose POC Glucose 144 H 113 H Lactic Acid Calcium Magnesium Iron TIBC Ferritin AST ALT Lactate Dehydrogenase Troponin T C-Reactive Protein Total Protein Albumin Cholesterol LDL Cholesterol Direct HDL Cholesterol Urine WBC (Auto) Vancomycin Trough Coronavirus (PCR) Crossmatch 07/11/19 07/11/19 07/11/19 00:07 05:14 05:25 WBC RBC Hgb Hct MCV MCH MCHC RDW Plt Count Seg Neuts % (Manual) Lymphocytes % (Manual) Seg Neutrophils # Man Lymphocytes # (Manual) PT INR D-Dimer ABG pH ABG pO2 ABG HCO3 ABG O2 Saturation ABG Base Excess ABG Hemoglobin 5.8 L Oxyhemoglobin Sodium Potassium Chloride 108.0 H Carbon Dioxide BUN 26 H Creatinine 0.4 L Glucose 110 H POC Glucose 121 H Lactic Acid Calcium Magnesium Iron TIBC Ferritin AST ALT Lactate Dehydrogenase Troponin T C-Reactive Protein Total Protein Albumin Cholesterol LDL Cholesterol Direct HDL Cholesterol Urine WBC (Auto) Vancomycin Trough Coronavirus (PCR) Crossmatch 07/11/19 07/11/19 07/11/19 12:27 18:00 23:42 WBC RBC Hgb Hct MCV MCH MCHC RDW Plt Count Seg Neuts % (Manual) Lymphocytes % (Manual) Seg Neutrophils # Man Lymphocytes # (Manual) PT INR D-Dimer ABG pH ABG pO2 ABG HCO3 ABG O2 Saturation ABG Base Excess ABG Hemoglobin Oxyhemoglobin Sodium Potassium Chloride Carbon Dioxide BUN Creatinine Glucose POC Glucose 158 H 141 H 142 H Lactic Acid Calcium Magnesium Iron TIBC Ferritin AST ALT Lactate Dehydrogenase Troponin T C-Reactive Protein Total Protein Albumin Cholesterol LDL Cholesterol Direct HDL Cholesterol Urine WBC (Auto) Vancomycin Trough Coronavirus (PCR) Crossmatch 07/12/19 07/12/19 07/12/19 04:46 04:46 05:23 WBC 23.6 H RBC 2.51 L Hgb 6.7 L Hct 20.8 L MCV 83 L MCH 27 L MCHC RDW 20.3 H Plt Count Seg Neuts % (Manual) 94.0 H Lymphocytes % (Manual) 4.0 L Seg Neutrophils # Man 22.2 H Lymphocytes # (Manual) 0.9 L PT INR D-Dimer ABG pH ABG pO2 ABG HCO3 ABG O2 Saturation ABG Base Excess ABG Hemoglobin Oxyhemoglobin Sodium Potassium Chloride 107.1 H Carbon Dioxide BUN 25 H Creatinine 0.4 L Glucose 122 H POC Glucose 118 H Lactic Acid Calcium Magnesium Iron TIBC Ferritin AST ALT Lactate Dehydrogenase Troponin T C-Reactive Protein Total Protein Albumin Cholesterol LDL Cholesterol Direct HDL Cholesterol Urine WBC (Auto) Vancomycin Trough Coronavirus (PCR) Crossmatch 07/12/19 07/12/19 07/12/19 08:49 11:36 18:15 WBC RBC Hgb Hct MCV MCH MCHC RDW Plt Count Seg Neuts % (Manual) Lymphocytes % (Manual) Seg Neutrophils # Man Lymphocytes # (Manual) PT INR D-Dimer ABG pH ABG pO2 ABG HCO3 ABG O2 Saturation ABG Base Excess ABG Hemoglobin Oxyhemoglobin Sodium Potassium Chloride Carbon Dioxide BUN Creatinine Glucose POC Glucose 124 H 110 H Lactic Acid Calcium Magnesium Iron TIBC Ferritin AST ALT Lactate Dehydrogenase Troponin T C-Reactive Protein Total Protein Albumin Cholesterol LDL Cholesterol Direct HDL Cholesterol Urine WBC (Auto) Vancomycin Trough Coronavirus (PCR) Crossmatch See Detail 07/12/19 07/13/19 07/13/19 23:16 05:26 06:50 WBC 23.9 H RBC 2.58 L Hgb 6.9 L Hct 21.5 L MCV 83 L MCH 27 L MCHC RDW 19.0 H Plt Count Seg Neuts % (Manual) 96.0 H Lymphocytes % (Manual) 3.0 L Seg Neutrophils # Man 22.9 H Lymphocytes # (Manual) 0.7 L PT INR D-Dimer ABG pH ABG pO2 ABG HCO3 ABG O2 Saturation ABG Base Excess ABG Hemoglobin Oxyhemoglobin Sodium Potassium Chloride Carbon Dioxide BUN Creatinine Glucose POC Glucose 108 H 126 H Lactic Acid Calcium Magnesium Iron TIBC Ferritin AST ALT Lactate Dehydrogenase Troponin T C-Reactive Protein Total Protein Albumin Cholesterol LDL Cholesterol Direct HDL Cholesterol Urine WBC (Auto) Vancomycin Trough Coronavirus (PCR) Crossmatch 07/13/19 07/13/19 07/13/19 06:50 12:38 18:05 WBC RBC Hgb Hct MCV MCH MCHC RDW Plt Count Seg Neuts % (Manual) Lymphocytes % (Manual) Seg Neutrophils # Man Lymphocytes # (Manual) PT INR D-Dimer ABG pH ABG pO2 ABG HCO3 ABG O2 Saturation ABG Base Excess ABG Hemoglobin Oxyhemoglobin Sodium Potassium Chloride Carbon Dioxide BUN 33 H Creatinine 0.5 L Glucose 136 H POC Glucose 164 H 145 H Lactic Acid Calcium Magnesium Iron TIBC Ferritin AST ALT Lactate Dehydrogenase Troponin T C-Reactive Protein Total Protein Albumin Cholesterol LDL Cholesterol Direct HDL Cholesterol Urine WBC (Auto) Vancomycin Trough Coronavirus (PCR) Crossmatch 07/13/19 07/14/19 07/14/19 18:30 00:21 04:40 WBC 22.9 H RBC 2.45 L Hgb 6.6 L Hct 21.1 L MCV MCH 27 L MCHC 31 L RDW 19.2 H Plt Count Seg Neuts % (Manual) 91.0 H Lymphocytes % (Manual) 7.0 L Seg Neutrophils # Man 20.8 H Lymphocytes # (Manual) PT INR D-Dimer ABG pH ABG pO2 58.1 L ABG HCO3 ABG O2 Saturation 88.7 L ABG Base Excess ABG Hemoglobin 7.8 L Oxyhemoglobin 86.8 L Sodium Potassium Chloride Carbon Dioxide BUN Creatinine Glucose POC Glucose 118 H Lactic Acid Calcium Magnesium Iron TIBC Ferritin AST ALT Lactate Dehydrogenase Troponin T C-Reactive Protein Total Protein Albumin Cholesterol LDL Cholesterol Direct HDL Cholesterol Urine WBC (Auto) Vancomycin Trough Coronavirus (PCR) Crossmatch 07/14/19 07/14/19 07/14/19 04:40 05:38 05:45 WBC RBC Hgb Hct MCV MCH MCHC RDW Plt Count Seg Neuts % (Manual) Lymphocytes % (Manual) Seg Neutrophils # Man Lymphocytes # (Manual) PT INR D-Dimer ABG pH 7.230 L ABG pO2 72.1 L ABG HCO3 ABG O2 Saturation 89.3 L ABG Base Excess -2.7 L ABG Hemoglobin 6.7 L Oxyhemoglobin 87.7 L Sodium Potassium Chloride 107.4 H Carbon Dioxide BUN 45 H Creatinine Glucose 101 H POC Glucose 154 H Lactic Acid Calcium Magnesium Iron TIBC Ferritin AST ALT Lactate Dehydrogenase Troponin T C-Reactive Protein Total Protein Albumin Cholesterol LDL Cholesterol Direct HDL Cholesterol Urine WBC (Auto) Vancomycin Trough Coronavirus (PCR) Crossmatch 07/14/19 07/14/19 07/14/19 12:25 18:20 19:01 WBC 22.4 H RBC 2.70 L Hgb 7.5 L Hct 23.3 L MCV MCH MCHC RDW 19.5 H Plt Count Seg Neuts % (Manual) Lymphocytes % (Manual) Seg Neutrophils # Man Lymphocytes # (Manual) PT INR D-Dimer ABG pH ABG pO2 ABG HCO3 ABG O2 Saturation ABG Base Excess ABG Hemoglobin Oxyhemoglobin Sodium Potassium Chloride Carbon Dioxide BUN Creatinine Glucose POC Glucose 136 H 131 H Lactic Acid Calcium Magnesium Iron TIBC Ferritin AST ALT Lactate Dehydrogenase Troponin T C-Reactive Protein Total Protein Albumin Cholesterol LDL Cholesterol Direct HDL Cholesterol Urine WBC (Auto) Vancomycin Trough Coronavirus (PCR) Crossmatch 07/15/19 07/15/19 07/15/19 00:17 04:35 05:18 WBC 20.6 H RBC 2.41 L Hgb 6.8 L Hct 20.7 L MCV MCH MCHC RDW 20.2 H Plt Count Seg Neuts % (Manual) 92.0 H Lymphocytes % (Manual) 5.0 L Seg Neutrophils # Man 19.0 H Lymphocytes # (Manual) 1.0 L PT INR D-Dimer ABG pH 7.342 L ABG pO2 ABG HCO3 ABG O2 Saturation ABG Base Excess -3.1 L ABG Hemoglobin 7.2 L Oxyhemoglobin 94.9 L Sodium Potassium Chloride Carbon Dioxide BUN Creatinine Glucose POC Glucose 116 H Lactic Acid Calcium Magnesium Iron TIBC Ferritin AST ALT Lactate Dehydrogenase Troponin T C-Reactive Protein Total Protein Albumin Cholesterol LDL Cholesterol Direct HDL Cholesterol Urine WBC (Auto) Vancomycin Trough Coronavirus (PCR) Crossmatch 07/15/19 07/15/19 05:18 05:57 WBC RBC Hgb Hct MCV MCH MCHC RDW Plt Count Seg Neuts % (Manual) Lymphocytes % (Manual) Seg Neutrophils # Man Lymphocytes # (Manual) PT INR D-Dimer ABG pH ABG pO2 ABG HCO3 ABG O2 Saturation ABG Base Excess ABG Hemoglobin Oxyhemoglobin Sodium Potassium Chloride Carbon Dioxide 20 L BUN 59 H Creatinine Glucose 140 H POC Glucose 139 H Lactic Acid Calcium Magnesium Iron TIBC Ferritin AST ALT Lactate Dehydrogenase Troponin T C-Reactive Protein Total Protein Albumin Cholesterol LDL Cholesterol Direct HDL Cholesterol Urine WBC (Auto) Vancomycin Trough Coronavirus (PCR) Crossmatch Allied health notes reviewed: nursing
[2019-07-15] MEDS: fentaNYL DRIP Premix 2,000 MCG/100 ML BAG IV SCH (20:43)
[2019-07-16] MEDS: NORepinephrine/NS 4 MG-250 ML 4 MG/250 ML BAG IV SCH ×2 (04:19→19:45)
[2019-07-16 04:32] LABS: ABG Base Excess -3.5 mmol/L (-2.0-3.0); ABG HCO3 21.8 mmol/L (20.0-26.0); ABG Methemoglobin 0.4 % (0.0-1.5); ABG Oxygen Saturation 95.3 % (95.0-99.0); ABG PH 7.344 pH Units (7.350-7.450); ABG PO2 68.6 mm Hg (80.0-90.0)
[2019-07-16 06:26] LABS: Basophils # (Auto) 0.1 K/mm3 (0.0-0.1); Basophils % (Auto) 0.5 % (0.0-1.8); Eosinophils # (Auto) 0.1 K/mm3 (0.0-0.4); Eosinophils % (Auto) 0.7 % (0.0-4.3); Hemoglobin 7.7 gm/dl (11.8-15.2); Lymphocytes # (Auto) 1.3 K/mm3 (1.2-5.4); Lymphocytes % (Auto) 6.7 % (13.4-35.0); Mean Corpuscular HGB Conc 32 % (32-34); Mean Corpuscular Volume 85 fl (84-94); Monocytes % (Auto) 5.1 % (0.0-7.3); Platelet Count 514 K/mm3 (140-440); Red Blood Count 2.81 M/mm3 (3.65-5.03); Red Cell Distribution Width 19.4 % (13.2-15.2)
[2019-07-16 06:28] LABS: Calcium 8.8 mg/dL (8.4-10.2)
[2019-07-16] MEDS: SODIUM HYPOCHLORITE, DAKIN'S 1/2 STRENGTH (0.25%) 473 ML TOPICAL SOLN TP SCH ×3 (07:52→21:04)
[2019-07-16] MEDS: INSULIN LISPRO 100 UNIT/ML SUB-Q SCH ×3 (07:53→17:51)
[2019-07-16] MEDS: METOPROLOL TARTRATE 25 MG TAB PO SCH ×3 (07:53→21:01)
[2019-07-16] MEDS ORDERED: CALCIUM CHLORIDE 1,000 MG/10 ML SYRINGE IV ONE (08:10)
[2019-07-16] MEDS ORDERED: DEXTROSE 50% IN WATER (25GM) 50 ML SYRINGE IV ONE (08:10)
[2019-07-16] MEDS ORDERED: INSULIN REGULAR, HUMAN 100 UNITS/1 ML IV ONE (08:10)
[2019-07-16] MEDS ORDERED: SODIUM POLYSTYRENE 15 GM/60 ML ORAL LIQD PO ONE (08:15)
--- NOTE | 2019-07-16 08:21 | Progress Note ---
Assessment and Plan Assessment and plan: --Hyperkalemia; Calcium gluconate, Kayexalate, follow electrolytes Nephrology following --Septic shock: On Levophed titrate to systolic blood pressure more than 100 --Anemia, Microcytic persistent Transfused 1 unit of PRBC, today Hb 7.7 Stool for occult blood, monitor H&H --COVid positive pneumonia with severe sepsis Received Plaquenil and cefepime, monitor off antibiotics ID following -- Acute respiratory Failure with Hypoxia Due to bilateral PNA with COVID 19 infection. pulmonary critical care following Continue ventilatory support, wean as tolerated and extubate --Acute metabolic encephalopathy Multifactorial, respiratory failure, sepsis, anemia Electrolyte abnormalities, seizures --COPD with exacerbation Likely due to COVID-19 pneumonia Continue scheduled nebs --Pressure Ulcers buttocks, right lateral foot area present upon admission wound care consulted --Hyponatremia, continue IV fluid --DM type 2 Accu-Chek sliding scale coverage ADA diet insulin --HTN Essential, now hypotensive relatively low BP, on IVF. monitor --Seizure D/o/CVA/immobility/BIpolar D/o/SCZ chronic medical conditions, stable --Severe PCM, TF for now, dietary following patient is DNR- Called and verified information Very poor prognosis, Recommend hospice 07/04: COVID +ve, start on plaquinil, called no answer 07/05: transfuse one unit PRBC, Hb dropped to ~6, called and updated 07/06; H&H stable, serum chemistry improved. On mechanical ventilation with high inflammatory markers. Continue Plaquenil and empiric antibiotics. ID following, prognosis remains guarded and extremely poor. 07/07: On mechanical ventilation with high inflammatory markers. Continue Plaquenil and empiric antibiotics. ID following, prognosis remains guarded and extremely poor. 07/08: Called today and verified the CODE STATUS. Patient remains DNR. He is still intubated, with poor prognosis. Continue to follow inflammatory markers. 07/09 wean off from vent as tolerated, completed empiric antibiotic and Plaquenil 07/10 wean off from vent as tolerated. poor prognosis 07/11 hb 6.7 today, transfuse one PRBC. wean off from vent as tolerated. poor prognosis 07/12 remains critically on vent. Hb 6.9 07/13 Hb dropped to 6.6, transfuse 1 unit of PRBC, remains on vent critically ill Hypotensive, fluid bolus, if no improvement start Levophed 07/14; remains anemic with hemoglobin of 6.8, received total 3 units of PRBC Additional 1 unit of PRBC today, stool for occult blood to rule out GI causes Started back on Levophed due to hypotension 07/15; hyperkalemia, corrected with calcium gluconate and Kayexalate, nephrology following Hemoglobin improved to 7.7 after 1 unit PRBC, no evidence of bleeding, septic shock on Levophed The high probability of a clinically significant, sudden or life threatening deterioration of the [respiratory, CVS, APPLICATION PENETRATION TESTER] system(s) required my full and direct attention, intervention and personal management. The aggregate critical care time was [34] minutes. This time is in addition to time spent performing reported procedures but includes the following: [x] Data Review and interpretation [x] Patient assessment and monitoring of vital signs [x] Documentation [x] Medication orders and management Critical care time 34 minutes History Interval history: Patient seen and examined at bedside in his room this morning Isolation precautions observed PPE used throughout examination of the patient per protocol Patient remains intubated on ventilatory support Hemoglobin improved after transfusion, on Levophed Vital signs noted Hospitalist Physical - Constitutional Vitals: Temp Pulse Resp BP Pulse Ox 100.2 F H 124 H 14 125/71 94 07/16/19 03:35 07/16/19 06:00 07/16/19 06:00 07/16/19 06:00 07/16/19 05:30 General appearance: Present: mild distress, well-nourished, other (Orally intubated on vent) - EENT Eyes: Present: PERRL, EOM intact - Neck Neck: Present: supple, normal ROM - Respiratory Respiratory effort: normal Respiratory: bilateral: diminished, rhonchi, negative: rales, wheezing - Cardiovascular Rhythm: regular Heart Sounds: Present: S1 & S2 - Extremities Extremities: no ischemia, No edema - Abdominal General gastrointestinal: soft, non-tender, non-distended, normal bowel sounds - Integumentary Integumentary: Present: clear, warm - Psychiatric Psychiatric: other (Intubated on vent) - Neurologic Neurologic: other (Intubated on vent) Results - Labs CBC & Chem 7: 07/16/19 04:41 07/16/19 16:19 Labs: Laboratory Last Values WBC 19.6 K/mm3 (4.5-11.0) H 07/16/19 04:41 RBC 2.81 M/mm3 (3.65-5.03) L 07/16/19 04:41 Hgb 7.7 gm/dl (11.8-15.2) L 07/16/19 04:41 Hct 24.0 % (35.5-45.6) L 07/16/19 04:41 MCV 85 fl (84-94) 07/16/19 04:41 MCH 27 pg (28-32) L 07/16/19 04:41 MCHC 32 % (32-34) 07/16/19 04:41 RDW 19.4 % (13.2-15.2) H 07/16/19 04:41 Plt Count 514 K/mm3 (140-440) H 07/16/19 04:41 Lymph % (Auto) 6.7 % (13.4-35.0) L 07/16/19 04:41 [place] % (Auto) 5.1 % (0.0-7.3) 07/16/19 04:41 Eos % (Auto) 0.7 % (0.0-4.3) 07/16/19 04:41 Baso % (Auto) 0.5 % (0.0-1.8) 07/16/19 04:41 Lymph # 1.3 K/mm3 (1.2-5.4) 07/16/19 04:41 [place] # 1.0 K/mm3 (0.0-0.8) H 07/16/19 04:41 Eos # 0.1 K/mm3 (0.0-0.4) 07/16/19 04:41 Baso # 0.1 K/mm3 (0.0-0.1) 07/16/19 04:41 Add Manual Diff Complete 07/15/19 05:18 Total Counted 100 07/15/19 05:18 Seg Neutrophils % 87.0 % (40.0-70.0) H 07/16/19 04:41 Seg Neuts % (Manual) 92.0 % (40.0-70.0) H 07/15/19 05:18 Band Neutrophils % 0 % 07/15/19 05:18 Lymphocytes % (Manual) 5.0 % (13.4-35.0) L 07/15/19 05:18 Reactive Lymphs % (Man) 0 % 07/15/19 05:18 Monocytes % (Manual) 3.0 % (0.0-7.3) 07/15/19 05:18 Eosinophils % (Manual) 0 % (0.0-4.3) 07/15/19 05:18 Basophils % (Manual) 0 % (0.0-1.8) 07/15/19 05:18 Metamyelocytes % 0 % 07/15/19 05:18 Myelocytes % 0 % 07/15/19 05:18 Promyelocytes % 0 % 07/15/19 05:18 Blast Cells % 0 % 07/15/19 05:18 Nucleated RBC % Not Reportable 07/15/19 05:18 Seg Neutrophils # 17.0 K/mm3 (1.8-7.7) H 07/16/19 04:41 Seg Neutrophils # Man 19.0 K/mm3 (1.8-7.7) H 07/15/19 05:18 Band Neutrophils # 0.0 K/mm3 07/15/19 05:18 Lymphocytes # (Manual) 1.0 K/mm3 (1.2-5.4) L 07/15/19 05:18 Abs React Lymphs (Man) 0.0 K/mm3 07/15/19 05:18 Monocytes # (Manual) 0.6 K/mm3 (0.0-0.8) 07/15/19 05:18 Eosinophils # (Manual) 0.0 K/mm3 (0.0-0.4) 07/15/19 05:18 Basophils # (Manual) 0.0 K/mm3 (0.0-0.1) 07/15/19 05:18 Metamyelocytes # 0.0 K/mm3 07/15/19 05:18 Myelocytes # 0.0 K/mm3 07/15/19 05:18 Promyelocytes # 0.0 K/mm3 07/15/19 05:18 Blast Cells # 0.0 K/mm3 07/15/19 05:18 WBC Morphology Not Reportable 07/15/19 05:18 Hypersegmented Neuts Not Reportable 07/15/19 05:18 Hyposegmented Neuts Not Reportable 07/15/19 05:18 Hypogranular Neuts Not Reportable 07/15/19 05:18 Smudge Cells Not Reportable 07/15/19 05:18 Toxic Granulation Not Reportable 07/15/19 05:18 Toxic Vacuolation Not Reportable 07/15/19 05:18 Dohle Bodies Not Reportable 07/15/19 05:18 Pelger-Huet Anomaly Not Reportable 07/15/19 05:18 Mendy Rods Not Reportable 07/15/19 05:18 Platelet Estimate Consistent w auto 07/15/19 05:18 Clumped Platelets Not Reportable 07/15/19 05:18 Plt Clumps, EDTA Not Reportable 07/15/19 05:18 Large Platelets Not Reportable 07/15/19 05:18 Giant Platelets Not Reportable 07/15/19 05:18 Platelet Satelliting Not Reportable 07/15/19 05:18 Plt Morphology Comment Not Reportable 07/15/19 05:18 RBC Morphology Not Reportable 07/15/19 05:18 Dimorphic RBCs Not Reportable 07/15/19 05:18 Polychromasia Not Reportable 07/15/19 05:18 Hypochromasia 2+ 07/15/19 05:18 Poikilocytosis Not Reportable 07/15/19 05:18 Anisocytosis 1+ 07/15/19 05:18 Microcytosis Few 07/15/19 05:18 Macrocytosis Not Reportable 07/15/19 05:18 Spherocytes Few 07/15/19 05:18 Pappenheimer Bodies Not Reportable 07/15/19 05:18 Sickle Cells Not Reportable 07/15/19 05:18 Target Cells Not Reportable 07/15/19 05:18 Tear Drop Cells Not Reportable 07/15/19 05:18 Ovalocytes Rare 07/15/19 05:18 Helmet Cells Not Reportable 07/15/19 05:18 [place] Bodies Not Reportable 07/15/19 05:18 [place] Rings Not Reportable 07/15/19 05:18 Joanne Cells Not Reportable 07/15/19 05:18 Bite Cells Not Reportable 07/15/19 05:18 Crenated Cell Not Reportable 07/15/19 05:18 Elliptocytes Not Reportable 07/15/19 05:18 Acanthocytes (Spur) Not Reportable 07/15/19 05:18 Rouleaux Not Reportable 07/15/19 05:18 Hemoglobin C Crystals Not Reportable 07/15/19 05:18 Schistocytes Few 07/15/19 05:18 Malaria parasites Not Reportable 07/15/19 05:18 Jeevan Bodies Not Reportable 07/15/19 05:18 Hem Pathologist Commnt No 07/15/19 05:18 PT 16.0 Sec. (12.2-14.9) H 07/03/19 22:20 INR 1.26 (0.87-1.13) H 07/03/19 22:20 D-Dimer 1142.18 ng/mlDDU (0-234) H 07/08/19 00:45 ABG pH 7.344 pH Units (7.350-7.450) L 07/16/19 03:43 ABG pCO2 41.0 mm Hg 07/16/19 03:43 ABG pO2 68.6 mm Hg (80.0-90.0) L 07/16/19 03:43 ABG HCO3 21.8 mmol/L (20.0-26.0) 07/16/19 03:43 ABG O2 Saturation 95.3 % (95.0-99.0) 07/16/19 03:43 ABG O2 Content 8.1 (0.0-44) 07/16/19 03:43 ABG Base Excess -3.5 mmol/L (-2.0-3.0) L 07/16/19 03:43 ABG Hemoglobin 6.1 gm/dl (14.0-18.0) L 07/16/19 03:43 ABG Carboxyhemoglobin 1.7 % (0.0-5.0) 07/16/19 03:43 ABG Methemoglobin 0.4 % (0.0-1.5) 07/16/19 03:43 Oxyhemoglobin 93.3 % (95.0-99.0) L 07/16/19 03:43 FiO2 50 % 07/16/19 03:43 Sodium 137 mmol/L (137-145) 07/16/19 04:41 Potassium 5.9 mmol/L (3.6-5.0) H 07/16/19 04:41 Chloride 105.5 mmol/L (98-107) 07/16/19 04:41 Carbon Dioxide 21 mmol/L (22-30) L 07/16/19 04:41 Anion Gap 16 mmol/L 07/16/19 04:41 BUN 73 mg/dL (9-20) H 07/16/19 04:41 Creatinine 2.0 mg/dL (0.8-1.5) H 07/16/19 04:41 Estimated GFR 40 ml/min 07/16/19 04:41 BUN/Creatinine Ratio 37 % 07/16/19 04:41 Glucose 95 mg/dL (75-100) 07/16/19 04:41 POC Glucose 102 (70-105) 07/16/19 05:32 Osmolality 268 Mosm/kg 07/05/19 04:00 Lactic Acid 3.30 mmol/L (0.7-2.0) H* 07/04/19 07:05 Uric Acid 7.2 mg/dL (3.5-7.6) 07/05/19 04:00 Calcium 8.8 mg/dL (8.4-10.2) 07/16/19 04:41 Phosphorus 3.60 mg/dL (2.5-4.5) 07/05/19 04:00 Magnesium 1.80 mg/dL (1.7-2.3) 07/11/19 05:14 Iron 9 ug/dL (49-181) L 07/04/19 07:05 TIBC 97 mcg/dL (250-450) L 07/04/19 07:05 Ferritin 839.0 ng/mL (13.0-400.0) H 07/08/19 00:45 Total Bilirubin 0.20 mg/dL (0.1-1.2) 07/04/19 07:05 AST 73 units/L (5-40) H 07/04/19 07:05 ALT 91 units/L (7-56) H 07/04/19 07:05 Alkaline Phosphatase 114 units/L (35-129) 07/04/19 07:05 Ammonia 35.0 umol/L (25-60) 07/03/19 23:58 Lactate Dehydrogenase 277 units/L (91-180) H 07/10/19 04:00 Troponin T 0.013 ng/mL (0.00-0.029) 07/04/19 07:05 C-Reactive Protein 15.10 mg/dL (0.00-1.30) H 07/10/19 04:00 Total Protein 5.5 g/dL (6.3-8.2) L 07/04/19 07:05 Albumin 2.0 g/dL (3.9-5) L 07/04/19 07:05 Albumin/Globulin Ratio 0.6 % 07/04/19 07:05 Triglycerides 33 mg/dL (2-149) 07/03/19 19:57 Cholesterol 47 mg/dL (50-199) L 07/03/19 19:57 LDL Cholesterol Direct 25 mg/dL (50-130) L 07/03/19 19:57 HDL Cholesterol 20 mg/dL (40-59) L 07/03/19 19:57 Cholesterol/HDL Ratio 2.35 % 07/03/19 19:57 Procalcitonin 1.25 ng/mL (<0.15) 07/10/19 04:00 TSH 2.170 mlU/mL (0.270-4.200) 07/03/19 22:20 Total Cortisol 28.0 mcg/dL () 07/05/19 10:11 Urine Color [place] (Yellow) 07/03/19 21:13 Urine Turbidity Cloudy (Clear) 07/03/19 21:13 Urine pH 5.0 (5.0-7.0) 07/03/19 21:13 Ur Specific [place] 1.016 (1.003-1.030) 07/03/19 21:13 Urine Protein 30 mg/dl mg/dL (Negative) 07/03/19 21:13 Urine Glucose (UA) Neg mg/dL (Negative) 07/03/19 21:13 Urine Ketones Neg mg/dL (Negative) 07/03/19 21:13 Urine Blood Neg (Negative) 07/03/19 21:13 Urine Nitrite Neg (Negative) 07/03/19 21:13 Urine Bilirubin Neg (Negative) 07/03/19 21:13 Urine Urobilinogen 2.0 mg/dL (<2.0) 07/03/19 21:13 Ur Leukocyte Esterase Neg (Negative) 07/03/19 21:13 Urine WBC (Auto) 12.0 /HPF (0.0-6.0) H 07/03/19 21:13 Urine RBC (Auto) 6.0 /HPF (0.0-6.0) 07/03/19 21:13 U Epithel Cells (Auto) 1.0 /HPF (0-13.0) 07/03/19 21:13 Urine Bacteria (Auto) 1+ /HPF (Negative) 07/03/19 21:13 Urine WBC Clumps Few /HPF 07/03/19 21:13 Urine Mucus Few /HPF 07/03/19 21:13 Urine Osmolality 293 Mosm/kg 07/05/19 08:15 Vancomycin Trough 23.2 ug/mL (5.0-20.0) H 07/05/19 17:54 Urine Opiates Screen Presumptive negative 07/03/19 21:13 Urine Methadone Screen Presumptive negative 07/03/19 21:13 Ur Barbiturates Screen Presumptive negative 07/03/19 21:13 Ur Phencyclidine Scrn Presumptive negative 07/03/19 21:13 Ur Amphetamines Screen Presumptive negative 07/03/19 21:13 U Benzodiazepines Scrn Presumptive negative 07/03/19 21:13 Urine Cocaine Screen Presumptive negative 07/03/19 21:13 U Marijuana (THC) Screen Presumptive negative 07/03/19 21:13 Drugs of Abuse Note Disclamer 07/03/19 21:13 Plasma/Serum Alcohol < 0.01 % (0-0.07) 07/03/19 23:58 Coronavirus (PCR) Positive (Negative) A 07/04/19 10:09 Blood Type B POSITIVE 07/12/19 08:49 Antibody Screen Negative 07/12/19 08:49 Crossmatch See Detail 07/12/19 08:49 Wright/IV: Voiding Method Indwelling Catheter IV Catheter Type [Left Upper Mid-line arm] IV Catheter Type [Right INT / Saline Lock Forearm] IV Catheter Type [Right Hand] INT / Saline Lock IV Catheter Type [Right CVL Femoral] IV Catheter Type [Left INT / Saline Lock External Jugular] Active Medications - Current Medications Current Medications: Generic Name Dose Route Start Last Admin Trade Name Freq PRN Reason Stop Dose Admin Acetaminophen 650 mg 07/04/19 04:24 Tylenol ND Q6H PRN Pain MILD(1-3)/Fever >100.5/MURO Acetaminophen 650 mg 07/10/19 04:00 07/15/19 20:35 Tylenol PO 650 mg Q6HR PRN Administration Pain, Mild (1-3) FEVER Lipase/Protease/Amylase 1 each 07/04/19 10:04 Pancrewhitley [place] 10,500 Unit FEEDTUBE PRN PRN For Clogged Feeding Tube Aspirin 81 mg 07/05/19 10:00 07/15/19 10:14 Baby Aspirin PO 81 mg QDAY TAMMIE Administration Dextrose 50 ml 07/04/19 06:54 D50w (25gm) Syringe IV Q30MIN PRN Hypoglycemia Protocol Dextrose 100 ml 07/16/19 08:10 D50w (25gm) Syringe IV 07/16/19 08:11 ONCE ONE Protocol Docusate Sodium 100 mg 07/10/19 10:00 07/15/19 21:18 Colace PO 100 mg BID TAMMIE Administration Famotidine 20 mg 07/16/19 10:00 Pepcid PO DAILY TAMMIE Fentanyl 50 mcg 07/12/19 15:09 Sublimaze IV Q10MIN PRN ANALGESIA Folic Acid 1 mg 07/05/19 10:00 07/15/19 10:13 Folvite PO 1 mg QDAY TAMMIE Administration Hydrophilic Ointment 1 applic 07/03/19 19:56 07/05/19 17:42 Vaseline Lip Therapy TP 1 applic Q2HR PRN Administration Dry Lips Norepinephrine 4 mg in 250 mls @ 7.5 mls/hr 07/03/19 23:00 07/16/19 04:19 Levophed Drip 4 Mg/Ns 250 Ml IV 10 mcg/min TITR TAMMIE 37.5 mls/hr Administration Protocol 2 MCG/MIN Fentanyl Citrate 2,000 mcg in 100 mls @ 4.25 mls/hr 07/12/19 16:00 07/15/19 20:43 Fentanyl Drip Premix IV 1 mcg/kg/hr TITR TAMMIE 4.25 mls/hr Administration Protocol 1 MCG/KG/HR Calcium Gluconate 1,000 mg/ 110 mls @ 660 mls/hr 07/16/19 08:30 Sodium Chloride IV 07/16/19 08:39 ONCE ONE Insulin Human Lispro 0 unit 07/07/19 12:00 07/16/19 07:53 Humalog SUB-Q Not Given Q6HR [facility] Protocol Insulin Human Regular 8 units 07/16/19 08:10 Humulin R IV 07/16/19 08:11 ONCE ONE Levetiracetam 750 mg 07/06/19 11:00 07/15/19 21:18 Keppra FEEDTUBE 750 mg Q12HR TAMMIE Administration Metoprolol Tartrate 5 mg 07/12/19 15:08 07/12/19 15:30 Metoprolol IV 5 mg Q6HR PRN Administration Tachyarrhythmias Metoprolol Tartrate 12.5 mg 07/12/19 16:00 07/16/19 07:53 Metoprolol PO Not Given BID TAMMIE Morphine Sulfate 2 mg 07/04/19 04:24 07/13/19 08:06 Morphine IV 2 mg Q4H PRN Administration Pain, Moderate (4-6) Multi-Ingred Cream/Lotion/Oil/Oint 1 applic 07/03/19 19:56 07/05/19 13:19 Artificial Tears Ophth Oint OU 1 applic Q4HR PRN Administration Dry Eye(s) Naloxone HCl 0.1 mg 07/04/19 04:24 Naloxone IV Q2MIN PRN Res Rate </= 8 or 02 SAT < 92% Scopolamine 1 each 07/10/19 11:00 07/13/19 10:20 Transderm-Scop TD 1 each Q3D TAMMIE Administration Simple Syrup 15 ml 07/04/19 10:04 07/10/19 21:56 Simple Syrup FEEDTUBE 15 ml PRN PRN Administration Hypoglycemia Simple Syrup 30 ml 07/04/19 10:04 Simple Syrup FEEDTUBE PRN PRN Hypoglycemia Sodium Bicarbonate 325 mg 07/04/19 10:04 Sodium Bicarbonate FEEDTUBE PRN PRN For Clogged Feeding Tube Sodium Chloride 10 ml 07/04/19 10:00 07/16/19 07:52 Sodium Chloride Flush Syringe 10 Ml IV Not Given BID TAMMIE Sodium Chloride 10 ml 07/04/19 04:24 Sodium Chloride Flush Syringe 10 Ml IV PRN PRN LINE FLUSH Sodium Hypochlorite 1 applic 07/10/19 14:00 07/16/19 07:52 Dakin's Half Strength TP Not Given BID TAMMIE Sodium Polystyrene Sulfonate 15 gm 07/16/19 08:15 Kionex PO 07/16/19 08:16 ONCE ONE Nutrition/Malnutrition Assess - Dietary Evaluation Nutrition/Malnutrition Findings: Nutrition Notes Start: 07/04/19 09:17 Freq: Status: Active Protocol: Document 07/11/19 11:01 LM (Rec: 07/11/19 11:05 LM [email or web address]) Nutrition Notes Initial or Follow up Reassessment Current Diagnosis Acute Kidney Injury,COPD, Decubitus(Pressure Ulcer), Diabetes,Hypertension Other Pertinent Diagnosis COVID-19 (+), pneu, seizures, schizophrenia, Buttock and R foot PU, Current Diet Vital AF 1.2 at 65ml/hr Labs/Tests K 3.6 Pertinent Medications Reviewed Height 5 ft 11 in Weight 90.7 kg [place] Body Weight (kg) 78.18 BMI 27.8 Subjective/Other Information TF running at goal and pt is tolerating TF. Percent of energy/protein needs met: 92%/100% Burn Absent Trauma Absent Current % PO Negligible Minimum of two criteria No physical signs of malnutrition #2 Nutrition Diagnosis Increased nutrient needs ( specify in comment below) Diagnosis Progress(for reassessment Continues documentation) #1 Nutrition Diagnosis Inadequate oral intake Diagnosis Progress(for reassessment Continues documentation) Is patient on ventilator? Yes Is Patient Ambulatory and/or Out of Bed No REE-([facility]-confined to bed) [id number] Additional Notes Protein: 109-182g (1.2-2g/kg) Fluid: 1 ml/kcal or per MD Nutrition Intervention Change Diet Order: TF Nutrition Support: Vital AF 1.2 at 65ml/hr Flush 100ml q4h Kcal 1,872 Protein (gm) 117 Fluid (mL) 973 Goal #1 TF tolerance Goal #2 Meet at least 75% of energy and protein needs Anticipated Discharge Needs: unable to determine at this time Follow-Up By: 07/16/19 Additional Comments F/U for TF tolerance
[2019-07-16] MEDS ORDERED: CALCIUM GLUCONATE 1,000 MG in SODIUM CHLORIDE 0.9% 100 ML IV ONE (08:30)
--- NOTE | 2019-07-16 08:44 | Progress Note ---
Assessment and Plan 1. Hypoantremia: Suspect SIADH. Sodium level has improved, now 137. Monitor Sodium level. 2. FEN: Metabolic acidosis, monitor. Hyperkalemia, Dextrose/insulin, calcium, and kayexalate ordered, monitor. Monitor volume status and lytes. 3. Acute kidney injury: Vasomotor MIRANDA likely 2/2 persistent hypotension. Creatinine increased 07/14 to 1.5. Today creatinine is 2.0. Ordered 500 cc bolus x 1. Monitor renal function. Avoid nephrotoxic agents. Meds dosage based on GFR. 4. Acute hypoxic respiratory failure: Currently intubated and on vent. Oxygen needs at 50%. Pulmonary following. 5. Severe Sepsis, POA. Pt spiking temps. Followed by ID. 6. Severe COVID-19 pneumonia. 7. Shock: Back on pressors. Received IV bolus 07/13 for hypotension. Pt still hypotensive at time of dictation. Monitor BP closely. 8. Microcytic anemia, POA: Hgb today 6.8. 1 U PRBC to transfuse. Has received total of 3 units PRBC prior to today's transfusion. Hgb improved 07/15 s/p PRBC. Monitor hgb. 9. Diabetes mellitus. 10. COPD. 11. Encephalopathy, POA: Metabolic. Subjective Date of service: 07/16/19 Principal diagnosis: Bilateral pneumonia, severe sepsis with septic shock, encephalopathy Interval history: Patient was only seen from outside the glass door to prevent exposure to COVID- 19. PPE is also limited supply. Reviewed all notes, vitals, and labs to date. Pt received PRBC yesterday with improvement in hgb noted. Pt still spiking temps and remaining hypotensive, on pressors. Objective - Exam Narrative Exam: General appearance: intubated on ventilator, NGT present, carroll HEENT: not examined Neck: not examined Respiratory: not examined Heart: sinus tach on the monitor Gastrointestinal: not examined Integumentary: not examined Neurologic: not examined Ext: not examined - Vital Signs Vital signs: Vital Signs - 12hr 07/15/19 07/15/19 07/15/19 21:01 21:31 22:00 Temperature Pulse Rate 112 H 104 H 109 H Pulse Rate [ From Monitor] Respiratory 16 21 21 Rate Blood Pressure 111/42 77/41 93/49 O2 Sat by Pulse 92 95 93 Oximetry 07/15/19 07/15/19 07/15/19 22:17 22:30 23:00 Temperature Pulse Rate 111 H 111 H 114 H Pulse Rate [ From Monitor] Respiratory 22 17 20 Rate Blood Pressure 82/48 84/46 93/48 O2 Sat by Pulse 96 94 94 Oximetry 07/15/19 07/15/19 07/16/19 23:16 23:30 00:00 Temperature 102.3 F H Pulse Rate 113 H 114 H Pulse Rate [ 116 H From Monitor] Respiratory 22 21 Rate Blood Pressure 90/48 87/50 O2 Sat by Pulse 94 94 Oximetry 07/16/19 07/16/19 07/16/19 00:30 01:00 01:30 Temperature Pulse Rate 114 H 115 H 115 H Pulse Rate [ From Monitor] Respiratory 22 20 22 Rate Blood Pressure 95/52 93/54 92/52 O2 Sat by Pulse 93 93 97 Oximetry 07/16/19 07/16/19 07/16/19 02:00 02:30 03:00 Temperature Pulse Rate 116 H 117 H 117 H Pulse Rate [ From Monitor] Respiratory 22 20 21 Rate Blood Pressure 98/54 99/54 95/55 O2 Sat by Pulse 93 93 96 Oximetry 07/16/19 07/16/19 07/16/19 03:30 03:35 04:00 Temperature 100.2 F H Pulse Rate 118 H 116 H Pulse Rate [ 125 H From Monitor] Respiratory 20 17 Rate Blood Pressure 100/56 O2 Sat by Pulse 94 99 Oximetry 07/16/19 07/16/19 07/16/19 04:01 04:05 04:30 Temperature Pulse Rate 115 H 114 H 116 H Pulse Rate [ From Monitor] Respiratory 23 20 Rate Blood Pressure 77/42 96/55 87/57 O2 Sat by Pulse 92 95 96 Oximetry 07/16/19 07/16/19 07/16/19 05:00 05:30 06:00 Temperature Pulse Rate 121 H 123 H 124 H Pulse Rate [ From Monitor] Respiratory 22 21 14 Rate Blood Pressure 98/62 120/64 125/71 O2 Sat by Pulse 94 94 Oximetry 07/16/19 07/16/19 07/16/19 06:30 07:00 07:30 Temperature Pulse Rate 125 H 126 H 125 H Pulse Rate [ From Monitor] Respiratory 17 18 17 Rate Blood Pressure 108/59 108/61 104/58 O2 Sat by Pulse 98 99 Oximetry 07/16/19 07/16/19 08:00 08:30 Temperature 99.9 F H Pulse Rate 126 H 126 H Pulse Rate [ From Monitor] Respiratory 18 16 Rate Blood Pressure 109/61 98/64 O2 Sat by Pulse 97 100 Oximetry - Lab 07/16/19 04:41 07/16/19 04:41 Most recent lab results ABG pH 7.344 pH Units (7.350-7.450) L 07/16/19 03:43 ABG pCO2 41.0 mm Hg 07/16/19 03:43 ABG pO2 68.6 mm Hg (80.0-90.0) L 07/16/19 03:43 ABG HCO3 21.8 mmol/L (20.0-26.0) 07/16/19 03:43 ABG O2 Saturation 95.3 % (95.0-99.0) 07/16/19 03:43 Calcium 8.8 mg/dL (8.4-10.2) 07/16/19 04:41 Phosphorus 3.60 mg/dL (2.5-4.5) 07/05/19 04:00 Magnesium 1.80 mg/dL (1.7-2.3) 07/11/19 05:14 Medications & Allergies - Medications Allergies/Adverse Reactions: Allergies No Known Allergies Allergy (Unverified 09/09/16 16:29) Home Medications: Home Medications Medication Instructions Recorded Confirmed Last Taken Type Acetaminophen [Tylenol] 500 mg PO TID 07/04/19 07/04/19 Unknown History Albuterol Sulfate [Proair 90 mcg IH TID 07/04/19 07/04/19 Unknown History Digihaler] Amlodipine Besylate [Norvasc] 2.5 mg PO QDAY 07/04/19 07/04/19 Unknown History Aspirin [Aspirin BABY CHEW TAB] 81 mg PO QDAY 07/04/19 07/04/19 Unknown History Atorvastatin Calcium [Lipitor] 80 mg PO QDAY 07/04/19 07/04/19 Unknown History Benztropine Mesylate 0.5 mg PO QDAY 07/04/19 07/04/19 Unknown History Budesonide/Formoterol Fumarate 10.2 gm IH BID 07/04/19 07/04/19 Unknown History [Budesonide-Formoterol 160-4.5] Divalproex ER [DepaKOTE ER] 1,000 mg PO QDAY 07/04/19 07/04/19 Unknown History Docusate Sodium [Colace] 100 mg PO QDAY 07/04/19 07/04/19 Unknown History Folic Acid [Folvite] 1 mg PO QDAY 07/04/19 07/04/19 Unknown History Hydrophilic Ointment [Dermafix] 113 gm TP QDAY 07/04/19 07/04/19 Unknown History Losartan [Cozaar] 100 mg PO QDAY 07/04/19 07/04/19 Unknown History Metformin HCl [Metformin HCl ER] 500 mg PO QDAY 07/04/19 07/04/19 Unknown History Metoprolol Tartrate 25 mg PO BID 07/04/19 07/04/19 Unknown History Multivit with Minerals/Ginseng 1 each PO QDAY 07/04/19 07/04/19 Unknown History [Super Ginseng Multivit Cap] Quetiapine Fumarate [SEROquel Xr] 400 mg PO QHS 07/04/19 07/04/19 Unknown History Sertraline HCl [Zoloft] 100 mg PO QDAY 07/04/19 07/04/19 Unknown History Sildenafil Citrate [Viagra] 100 mg PO QDAY PRN 07/04/19 07/04/19 Unknown History Tamsulosin [Flomax] 0.4 mg PO QDAY 07/04/19 07/04/19 Unknown History Active Medications: Generic Name Dose Route Start Last Admin Trade Name Freq PRN Reason Stop Dose Admin Acetaminophen 650 mg 07/04/19 04:24 Tylenol DE Q6H PRN Pain MILD(1-3)/Fever >100.5/MURO Acetaminophen 650 mg 07/10/19 04:00 07/15/19 20:35 Tylenol PO 650 mg Q6HR PRN Administration Pain, Mild (1-3) FEVER Lipase/Protease/Amylase 1 each 07/04/19 10:04 Pancrewhitley Gilbert 10,500 Unit FEEDTUBE PRN PRN For Clogged Feeding Tube Aspirin 81 mg 07/05/19 10:00 07/15/19 10:14 Baby Aspirin PO 81 mg QDAY TAMMIE Administration Dextrose 50 ml 07/04/19 06:54 D50w (25gm) Syringe IV Q30MIN PRN Hypoglycemia Protocol Dextrose 100 ml 07/16/19 08:10 D50w (25gm) Syringe IV 07/16/19 08:11 ONCE ONE Protocol Docusate Sodium 100 mg 07/10/19 10:00 07/15/19 21:18 Colace PO 100 mg BID [facility] Administration Famotidine 20 mg 07/16/19 10:00 Pepcid PO DAILY [facility] Fentanyl 50 mcg 07/12/19 15:09 Sublimaze IV Q10MIN PRN ANALGESIA Folic Acid 1 mg 07/05/19 10:00 07/15/19 10:13 Folvite PO 1 mg QDAY [facility] Administration Hydrophilic Ointment 1 applic 07/03/19 19:56 07/05/19 17:42 Vaseline Lip Therapy TP 1 applic Q2HR PRN Administration Dry Lips Norepinephrine 4 mg in 250 mls @ 7.5 mls/hr 07/03/19 23:00 07/16/19 04:19 Levophed Drip 4 Mg/Ns 250 Ml IV 10 mcg/min TITR TAMMIE 37.5 mls/hr Administration Protocol 2 MCG/MIN Fentanyl Citrate 2,000 mcg in 100 mls @ 4.25 mls/hr 07/12/19 16:00 07/15/19 20:43 Fentanyl Drip Premix IV 1 mcg/kg/hr TITR TAMMIE 4.25 mls/hr Administration Protocol 1 MCG/KG/HR Calcium Gluconate 1,000 mg/ 110 mls @ 660 mls/hr 07/16/19 08:30 Sodium Chloride IV 07/16/19 08:39 ONCE ONE Insulin Human Lispro 0 unit 07/07/19 12:00 07/16/19 07:53 Humalog SUB-Q Not Given Q6HR [facility] Protocol Insulin Human Regular 8 units 07/16/19 08:10 Humulin R IV 07/16/19 08:11 ONCE ONE Levetiracetam 750 mg 07/06/19 11:00 07/15/19 21:18 Keppra FEEDTUBE 750 mg Q12HR [facility] Administration Metoprolol Tartrate 5 mg 07/12/19 15:08 07/12/19 15:30 Metoprolol IV 5 mg Q6HR PRN Administration Tachyarrhythmias Metoprolol Tartrate 12.5 mg 07/12/19 16:00 07/16/19 07:53 Metoprolol PO Not Given BID [facility] Morphine Sulfate 2 mg 07/04/19 04:24 07/13/19 08:06 Morphine IV 2 mg Q4H PRN Administration Pain, Moderate (4-6) Multi-Ingred Cream/Lotion/Oil/Oint 1 applic 07/03/19 19:56 07/05/19 13:19 Artificial Tears Ophth Oint OU 1 applic Q4HR PRN Administration Dry Eye(s) Naloxone HCl 0.1 mg 07/04/19 04:24 Naloxone IV Q2MIN PRN Res Rate </= 8 or 02 SAT < 92% Scopolamine 1 each 07/10/19 11:00 07/13/19 10:20 Transderm-Scop TD 1 each Q3D TAMMIE Administration Simple Syrup 15 ml 07/04/19 10:04 07/10/19 21:56 Simple Syrup FEEDTUBE 15 ml PRN PRN Administration Hypoglycemia Simple Syrup 30 ml 07/04/19 10:04 Simple Syrup FEEDTUBE PRN PRN Hypoglycemia Sodium Bicarbonate 325 mg 07/04/19 10:04 Sodium Bicarbonate FEEDTUBE PRN PRN For Clogged Feeding Tube Sodium Chloride 10 ml 07/04/19 10:00 07/16/19 07:52 Sodium Chloride Flush Syringe 10 Ml IV Not Given BID TAMMIE Sodium Chloride 10 ml 07/04/19 04:24 Sodium Chloride Flush Syringe 10 Ml IV PRN PRN LINE FLUSH Sodium Hypochlorite 1 applic 07/10/19 14:00 07/16/19 07:52 Dakin's Half Strength TP Not Given BID TAMMIE Sodium Polystyrene Sulfonate 15 gm 07/16/19 08:15 Kionex PO 07/16/19 08:16 ONCE ONE
[2019-07-16] MEDS: FOLIC ACID 1 MG TAB PO SCH (09:30)
[2019-07-16] MEDS: levETIRAcetam 500 MG/5 ML ORAL LIQD FEEDTUBE SCH ×2 (09:30→21:00)
[2019-07-16] MEDS: ASPIRIN 81 MG TAB CHEW PO SCH (09:30)
[2019-07-16] MEDS ORDERED: FAMOTIDINE 20 MG TAB PO SCH (10:00)
[2019-07-16] MEDS ORDERED: SODIUM CHLORIDE 0.9% 500 ML 500 ML IV ONE (10:00)
[2019-07-16] MEDS: SCOPOLAMINE TRANSDERMAL PATCH 72 HR TD SCH (10:05)
[2019-07-16] MEDS: DOCUSATE SODIUM 100 MG/10 ML ORAL LIQD PO SCH ×2 (11:03→21:00)
--- NOTE | 2019-07-16 14:09 | Progress Note ---
Assessment and Plan Acute hypoxemic respiratory failure on MVS Severe sepsis with Shock. Bilateral Pneumonia. PUI coronavirus-19 infection. Acute possibly on chronic encephalopathy. Oropharyngeal dysphagia. Anemia. Decubitus ulcers Diabetes type 2. Hypertension. Leukocytosis. Anemia that is microcytic. Elevated serum transaminases. [id number] metabolic acidosis. Lactic acidosis. Severe protein-calorie malnutrition - received bolus 500 mls IV; will run at 100 mls/hr X 2 liters and re-evaluate - wean Levophed for MAP > 65 mmHg - PEG localized in stomach on omnipaque study - keep current minute ventilation settings and repeat ABG in am - continue to wean supplemental oxygen for target O2 sat's > 90% acutely - Daily SAT's and SBT assessment as tolerated - VAP bundle addressed - continue lung protective strategies - continue bronchodilators with pulmonary hygiene per RT - wean per pulmonary driven protocols otherwise - continue fentanyl gtt for pain control / sedation - continue airborne and contact COVID-19 precautions - COVID-19 test positive - complete anti-infectives and de-escalate per ID recommendations - continue wound care per WCT - sedation prn for target RASS 0 to -1 - accuchecks with glycemic control per SSI (While critically ill target blood glucose of 140-180 mg/dL; avoid hypoglycemia) - to avoid benzodiazepine's, reduce the possibility of delirium - prn analgesia per CPOT score - Maintenance of sleep-wake cycle, avoid delirium - continue enteral nutritional support at goal rate as tolerated - G.I. & VTE prophylaxis - PT/OT/ROM exercises - continue mobility protocols for pressure ulcer prophylaxis - Monitor hemodynamics closely - continue other care per attending / other consultants - discharge planning ongoing concurrently .... Re-evaluate in am & prn CONDITION: CRITICAL PROGNOSIS: GUARDED CODE STATUS: FULL CODE The high probability of a clinically significant, sudden or life-threatening deterioration of the [respiratory & cardiovascular] system(s) required my full and direct attention, intervention and personal management. The aggregate critical care time was [33] minutes without overlap. Time includes spent on; [x] Data Review and interpretation [x] Patient assessment and monitoring of vital signs [x] Documentation [x] Medication orders and management Subjective Date of service: 07/16/19 Principal diagnosis: Bilateral pneumonia, severe sepsis with septic shock, encephalopathy Interval history: Patient is seen today for: Ac hypoxemic Resp failure on MVS; Severe sepsis with Shock; Ivan. Pneumonia; PUI coronavirus-19 infection. Seen and examined at bedside; 24hour events reviewed; nursing and respiratory care staff consulted; no adverse overnight events reported to me; resting in bed; remains on MVS; AMS is persistent; not tolerating bedside SBT's yet and still with mixed acidosis and hypercapnia element Objective Vital Signs - 12hr 07/16/19 07/16/19 07/16/19 02:30 03:00 03:30 Temperature Pulse Rate 117 H 117 H 118 H Pulse Rate [ From Monitor] Respiratory 20 21 20 Rate Blood Pressure 99/54 95/55 100/56 O2 Sat by Pulse 93 96 94 Oximetry 07/16/19 07/16/19 07/16/19 03:35 04:00 04:01 Temperature 100.2 F H Pulse Rate 116 H 115 H Pulse Rate [ 125 H From Monitor] Respiratory 17 23 Rate Blood Pressure 77/42 O2 Sat by Pulse 99 92 Oximetry 07/16/19 07/16/19 07/16/19 04:05 04:30 05:00 Temperature Pulse Rate 114 H 116 H 121 H Pulse Rate [ From Monitor] Respiratory 20 22 Rate Blood Pressure 96/55 87/57 98/62 O2 Sat by Pulse 95 96 94 Oximetry 07/16/19 07/16/19 07/16/19 05:30 06:00 06:30 Temperature Pulse Rate 123 H 124 H 125 H Pulse Rate [ From Monitor] Respiratory 21 14 17 Rate Blood Pressure 120/64 125/71 108/59 O2 Sat by Pulse 94 98 Oximetry 07/16/19 07/16/19 07/16/19 07:00 07:30 08:00 Temperature 99.9 F H Pulse Rate 126 H 125 H 126 H Pulse Rate [ 125 H From Monitor] Respiratory 18 17 18 Rate Blood Pressure 108/61 104/58 109/61 O2 Sat by Pulse 99 97 Oximetry 07/16/19 07/16/19 07/16/19 08:30 09:00 09:31 Temperature Pulse Rate 126 H 127 H 126 H Pulse Rate [ From Monitor] Respiratory 16 16 16 Rate Blood Pressure 98/64 104/58 90/52 O2 Sat by Pulse 100 100 100 Oximetry 07/16/19 07/16/19 07/16/19 10:00 10:30 11:00 Temperature Pulse Rate 126 H 125 H 124 H Pulse Rate [ From Monitor] Respiratory 16 18 17 Rate Blood Pressure 105/60 112/61 105/61 O2 Sat by Pulse 100 100 100 Oximetry 07/16/19 07/16/19 07/16/19 11:30 12:00 12:30 Temperature 98.6 F Pulse Rate 124 H 126 H 123 H Pulse Rate [ 125 H From Monitor] Respiratory 15 15 14 Rate Blood Pressure 109/60 103/60 88/58 O2 Sat by Pulse 100 100 97 Oximetry Constitutional: appears uncomfortable, other (eelderly and chronically ill looking AAM, normocep[krystina;ic with mildly increased respiratory effort at rest) Eyes: non-icteric ENT: oropharynx moist, other (ETT 24 cm RUTH) Neck: supple, no lymphadenopathy, no JVD Effort: mildly labored Ascultation: Bilateral: diminished breath sounds, rhonchi Percussion: Bilateral: not dull Cardiovascular: regular rate and rhythm Gastrointestinal: normoactive bowel sounds, soft, non-tender, non-distended, other (+ PEG tube with mild TF leakage) Integumentary: decubitus ulcer Extremities: no cyanosis, no edema, pink and warm, pulses normal Neurologic: unable to assess Psychiatric: other (Unable to assess re: AMS) CBC and BMP: 07/17/19 04:39 07/17/19 04:39 ABG, PT/INR, D-dimer: ABG ABG pH 7.344 pH Units (7.350-7.450) L 07/16/19 03:43 ABG pCO2 41.0 mm Hg 07/16/19 03:43 ABG pO2 68.6 mm Hg (80.0-90.0) L 07/16/19 03:43 ABG O2 Saturation 95.3 % (95.0-99.0) 07/16/19 03:43 PT/INR, D-dimer PT 16.0 Sec. (12.2-14.9) H 07/03/19 22:20 INR 1.26 (0.87-1.13) H 07/03/19 22:20 D-Dimer 1142.18 ng/mlDDU (0-234) H 07/08/19 00:45 Abnormal lab findings: Abnormal Labs 07/03/19 07/03/19 07/03/19 19:57 21:10 21:13 WBC RBC Hgb Hct MCV MCH MCHC RDW Plt Count Lymph % (Auto) [place] # Seg Neutrophils % Seg Neuts % (Manual) Lymphocytes % (Manual) Seg Neutrophils # Seg Neutrophils # Man Lymphocytes # (Manual) PT INR D-Dimer ABG pH 7.238 L ABG pO2 210.8 H ABG HCO3 15.4 L ABG O2 Saturation 99.2 H ABG Base Excess -11.1 L ABG Hemoglobin 8.0 L Oxyhemoglobin Sodium 124 L Potassium Chloride 92.9 L Carbon Dioxide 10 L BUN 23 H Creatinine 0.5 L Glucose 118 H POC Glucose Lactic Acid Calcium 7.0 L Magnesium Iron TIBC Ferritin AST 70 H ALT 88 H Lactate Dehydrogenase Troponin T 0.032 H C-Reactive Protein Total Protein 5.0 L Albumin 1.8 L Cholesterol 47 L LDL Cholesterol Direct 25 L HDL Cholesterol 20 L Urine WBC (Auto) 12.0 H Vancomycin Trough Coronavirus (PCR) Crossmatch 07/03/19 07/03/19 07/03/19 22:20 22:20 22:20 WBC 30.5 H RBC 2.96 L Hgb 7.7 L Hct 23.9 L MCV 81 L MCH 26 L MCHC RDW 18.6 H Plt Count 459 H Lymph % (Auto) [place] # Seg Neutrophils % Seg Neuts % (Manual) 93.0 H Lymphocytes % (Manual) 0.5 L Seg Neutrophils # Seg Neutrophils # Man 28.4 H Lymphocytes # (Manual) 0.2 L PT 16.0 H INR 1.26 H D-Dimer ABG pH ABG pO2 ABG HCO3 ABG O2 Saturation ABG Base Excess ABG Hemoglobin Oxyhemoglobin Sodium Potassium Chloride Carbon Dioxide BUN Creatinine Glucose POC Glucose Lactic Acid 6.90 H* Calcium Magnesium Iron TIBC Ferritin AST ALT Lactate Dehydrogenase Troponin T C-Reactive Protein Total Protein Albumin Cholesterol LDL Cholesterol Direct HDL Cholesterol Urine WBC (Auto) Vancomycin Trough Coronavirus (PCR) Crossmatch 07/03/19 07/04/19 07/04/19 23:58 05:15 07:05 WBC 17.1 H RBC 3.22 L Hgb 8.3 L Hct 25.4 L MCV 79 L MCH 26 L MCHC RDW 18.6 H Plt Count Lymph % (Auto) [place] # Seg Neutrophils % Seg Neuts % (Manual) 74.0 H Lymphocytes % (Manual) 0 L Seg Neutrophils # Seg Neutrophils # Man 12.7 H Lymphocytes # (Manual) 0.0 L PT INR D-Dimer ABG pH 7.310 L ABG pO2 73.2 L ABG HCO3 17.8 L ABG O2 Saturation 93.8 L ABG Base Excess -7.7 L ABG Hemoglobin 9.6 L Oxyhemoglobin 92.3 L Sodium Potassium Chloride Carbon Dioxide BUN Creatinine Glucose POC Glucose Lactic Acid 7.10 H* Calcium Magnesium Iron TIBC Ferritin AST ALT Lactate Dehydrogenase Troponin T C-Reactive Protein Total Protein Albumin Cholesterol LDL Cholesterol Direct HDL Cholesterol Urine WBC (Auto) Vancomycin Trough Coronavirus (PCR) Crossmatch 07/04/19 07/04/19 07/04/19 07:05 07:05 07:05 WBC RBC Hgb Hct MCV MCH MCHC RDW Plt Count Lymph % (Auto) [place] # Seg Neutrophils % Seg Neuts % (Manual) Lymphocytes % (Manual) Seg Neutrophils # Seg Neutrophils # Man Lymphocytes # (Manual) PT INR D-Dimer ABG pH ABG pO2 ABG HCO3 ABG O2 Saturation ABG Base Excess ABG Hemoglobin Oxyhemoglobin Sodium 120 L Potassium 5.1 H Chloride 90.0 L Carbon Dioxide 14 L BUN 26 H Creatinine 0.5 L Glucose POC Glucose Lactic Acid 3.30 H* Calcium 8.0 L Magnesium Iron 9 L TIBC 97 L Ferritin AST 73 H ALT 91 H Lactate Dehydrogenase Troponin T C-Reactive Protein Total Protein 5.5 L Albumin 2.0 L Cholesterol LDL Cholesterol Direct HDL Cholesterol Urine WBC (Auto) Vancomycin Trough Coronavirus (PCR) Crossmatch 07/04/19 07/04/19 07/04/19 09:39 09:39 09:39 WBC RBC Hgb Hct MCV MCH MCHC RDW Plt Count Lymph % (Auto) [place] # Seg Neutrophils % Seg Neuts % (Manual) Lymphocytes % (Manual) Seg Neutrophils # Seg Neutrophils # Man Lymphocytes # (Manual) PT INR D-Dimer 1419.14 H ABG pH ABG pO2 ABG HCO3 ABG O2 Saturation ABG Base Excess ABG Hemoglobin Oxyhemoglobin Sodium Potassium Chloride Carbon Dioxide BUN Creatinine Glucose POC Glucose Lactic Acid Calcium Magnesium Iron TIBC Ferritin 1719.0 H AST ALT Lactate Dehydrogenase 234 H Troponin T C-Reactive Protein 15.50 H Total Protein Albumin Cholesterol LDL Cholesterol Direct HDL Cholesterol Urine WBC (Auto) Vancomycin Trough Coronavirus (PCR) Crossmatch 07/04/19 07/04/19 07/04/19 10:09 18:08 18:28 WBC RBC Hgb Hct MCV MCH MCHC RDW Plt Count Lymph % (Auto) [place] # Seg Neutrophils % Seg Neuts % (Manual) Lymphocytes % (Manual) Seg Neutrophils # Seg Neutrophils # Man Lymphocytes # (Manual) PT INR D-Dimer ABG pH ABG pO2 ABG HCO3 ABG O2 Saturation ABG Base Excess ABG Hemoglobin Oxyhemoglobin Sodium 117 L* Potassium 5.6 H Chloride 90.3 L Carbon Dioxide 16 L BUN 28 H Creatinine 0.5 L Glucose 58 L POC Glucose 65 L Lactic Acid Calcium 8.2 L Magnesium Iron TIBC Ferritin AST ALT Lactate Dehydrogenase Troponin T C-Reactive Protein Total Protein Albumin Cholesterol LDL Cholesterol Direct HDL Cholesterol Urine WBC (Auto) Vancomycin Trough Coronavirus (PCR) Positive A Crossmatch 07/04/19 07/04/19 07/04/19 23:45 Unknown Unknown WBC RBC Hgb Hct MCV MCH MCHC RDW Plt Count Lymph % (Auto) [place] # Seg Neutrophils % Seg Neuts % (Manual) Lymphocytes % (Manual) Seg Neutrophils # Seg Neutrophils # Man Lymphocytes # (Manual) PT INR D-Dimer 759.77 H ABG pH ABG pO2 ABG HCO3 ABG O2 Saturation ABG Base Excess ABG Hemoglobin Oxyhemoglobin Sodium 122 L Potassium Chloride 93.0 L Carbon Dioxide 19 L BUN 27 H Creatinine 0.5 L Glucose POC Glucose Lactic Acid Calcium 8.3 L Magnesium Iron TIBC Ferritin 1301.0 H AST ALT Lactate Dehydrogenase Troponin T C-Reactive Protein Total Protein Albumin Cholesterol LDL Cholesterol Direct HDL Cholesterol Urine WBC (Auto) Vancomycin Trough Coronavirus (PCR) Crossmatch 07/04/19 07/05/19 07/05/19 Unknown 03:20 04:00 WBC RBC Hgb Hct MCV MCH MCHC RDW Plt Count Lymph % (Auto) [place] # Seg Neutrophils % Seg Neuts % (Manual) Lymphocytes % (Manual) Seg Neutrophils # Seg Neutrophils # Man Lymphocytes # (Manual) PT INR D-Dimer ABG pH ABG pO2 60.6 L ABG HCO3 ABG O2 Saturation 93.5 L ABG Base Excess -2.4 L ABG Hemoglobin 6.9 L Oxyhemoglobin 92.0 L Sodium 125 L Potassium Chloride 92.6 L Carbon Dioxide 19 L BUN 24 H Creatinine 0.6 L Glucose POC Glucose Lactic Acid Calcium 8.2 L Magnesium 1.40 L Iron TIBC Ferritin AST ALT Lactate Dehydrogenase 242 H Troponin T C-Reactive Protein 16.70 H Total Protein Albumin Cholesterol LDL Cholesterol Direct HDL Cholesterol Urine WBC (Auto) Vancomycin Trough Coronavirus (PCR) Crossmatch 07/05/19 07/05/19 07/05/19 10:11 16:15 17:54 WBC 46.4 H* RBC 2.77 L Hgb 7.2 L Hct 21.9 L MCV 79 L MCH 26 L MCHC RDW 19.0 H Plt Count Lymph % (Auto) [place] # Seg Neutrophils % Seg Neuts % (Manual) 82.0 H Lymphocytes % (Manual) 1.0 L Seg Neutrophils # Seg Neutrophils # Man 38.0 H Lymphocytes # (Manual) 0.5 L PT INR D-Dimer ABG pH ABG pO2 ABG HCO3 ABG O2 Saturation ABG Base Excess ABG Hemoglobin Oxyhemoglobin Sodium Potassium Chloride Carbon Dioxide BUN Creatinine Glucose POC Glucose 69 L Lactic Acid Calcium Magnesium Iron TIBC Ferritin AST ALT Lactate Dehydrogenase Troponin T C-Reactive Protein Total Protein Albumin Cholesterol LDL Cholesterol Direct HDL Cholesterol Urine WBC (Auto) Vancomycin Trough 23.2 H Coronavirus (PCR) Crossmatch 07/05/19 07/06/19 07/06/19 19:58 00:27 00:27 WBC RBC Hgb Hct MCV MCH MCHC RDW Plt Count Lymph % (Auto) [place] # Seg Neutrophils % Seg Neuts % (Manual) Lymphocytes % (Manual) Seg Neutrophils # Seg Neutrophils # Man Lymphocytes # (Manual) PT INR D-Dimer 1333.22 H ABG pH ABG pO2 ABG HCO3 ABG O2 Saturation ABG Base Excess ABG Hemoglobin Oxyhemoglobin Sodium 127 L Potassium Chloride Carbon Dioxide BUN Creatinine Glucose POC Glucose Lactic Acid Calcium Magnesium Iron TIBC Ferritin 977.1 H AST ALT Lactate Dehydrogenase Troponin T C-Reactive Protein Total Protein Albumin Cholesterol LDL Cholesterol Direct HDL Cholesterol Urine WBC (Auto) Vancomycin Trough Coronavirus (PCR) Crossmatch 07/06/19 07/06/19 07/06/19 00:27 02:00 02:56 WBC RBC Hgb Hct MCV MCH MCHC RDW Plt Count Lymph % (Auto) [place] # Seg Neutrophils % Seg Neuts % (Manual) Lymphocytes % (Manual) Seg Neutrophils # Seg Neutrophils # Man Lymphocytes # (Manual) PT INR D-Dimer ABG pH ABG pO2 70.3 L ABG HCO3 ABG O2 Saturation 94.8 L ABG Base Excess ABG Hemoglobin 8.0 L Oxyhemoglobin 93.2 L Sodium Potassium Chloride Carbon Dioxide BUN Creatinine Glucose POC Glucose 117 H Lactic Acid Calcium Magnesium Iron TIBC Ferritin AST ALT Lactate Dehydrogenase 236 H Troponin T C-Reactive Protein 22.90 H Total Protein Albumin Cholesterol LDL Cholesterol Direct HDL Cholesterol Urine WBC (Auto) Vancomycin Trough Coronavirus (PCR) Crossmatch 07/06/19 07/06/19 07/06/19 03:49 03:49 07:40 WBC 38.8 H RBC 2.51 L Hgb 6.7 L Hct 19.9 L* MCV 79 L MCH 27 L MCHC RDW 19.2 H Plt Count Lymph % (Auto) [place] # Seg Neutrophils % Seg Neuts % (Manual) 90.5 H Lymphocytes % (Manual) 1.0 L Seg Neutrophils # Seg Neutrophils # Man 35.1 H Lymphocytes # (Manual) 0.4 L PT INR D-Dimer ABG pH ABG pO2 ABG HCO3 ABG O2 Saturation ABG Base Excess ABG Hemoglobin Oxyhemoglobin Sodium 131 L Potassium Chloride 96.9 L Carbon Dioxide 18 L BUN 23 H Creatinine 0.5 L Glucose POC Glucose Lactic Acid Calcium 8.0 L Magnesium Iron TIBC Ferritin AST ALT Lactate Dehydrogenase Troponin T C-Reactive Protein Total Protein Albumin Cholesterol LDL Cholesterol Direct HDL Cholesterol Urine WBC (Auto) Vancomycin Trough Coronavirus (PCR) Crossmatch See Detail 07/06/19 07/06/19 07/06/19 12:38 14:39 20:00 WBC RBC Hgb Hct MCV MCH MCHC RDW Plt Count Lymph % (Auto) [place] # Seg Neutrophils % Seg Neuts % (Manual) Lymphocytes % (Manual) Seg Neutrophils # Seg Neutrophils # Man Lymphocytes # (Manual) PT INR D-Dimer ABG pH ABG pO2 ABG HCO3 ABG O2 Saturation ABG Base Excess ABG Hemoglobin Oxyhemoglobin Sodium Potassium Chloride Carbon Dioxide BUN Creatinine Glucose POC Glucose 112 H 111 H 140 H Lactic Acid Calcium Magnesium Iron TIBC Ferritin AST ALT Lactate Dehydrogenase Troponin T C-Reactive Protein Total Protein Albumin Cholesterol LDL Cholesterol Direct HDL Cholesterol Urine WBC (Auto) Vancomycin Trough Coronavirus (PCR) Crossmatch 07/06/19 07/06/19 07/07/19 22:43 22:56 02:20 WBC RBC Hgb 7.9 L Hct 23.1 L MCV MCH MCHC RDW Plt Count Lymph % (Auto) [place] # Seg Neutrophils % Seg Neuts % (Manual) Lymphocytes % (Manual) Seg Neutrophils # Seg Neutrophils # Man Lymphocytes # (Manual) PT INR D-Dimer ABG pH ABG pO2 ABG HCO3 ABG O2 Saturation ABG Base Excess ABG Hemoglobin Oxyhemoglobin Sodium Potassium Chloride Carbon Dioxide BUN Creatinine Glucose POC Glucose 122 H 149 H Lactic Acid Calcium Magnesium Iron TIBC Ferritin AST ALT Lactate Dehydrogenase Troponin T C-Reactive Protein Total Protein Albumin Cholesterol LDL Cholesterol Direct HDL Cholesterol Urine WBC (Auto) Vancomycin Trough Coronavirus (PCR) Crossmatch 07/07/19 07/07/19 07/07/19 04:35 05:27 05:34 WBC 23.1 H RBC 3.00 L Hgb 8.1 L Hct 24.2 L MCV 81 L MCH 27 L MCHC RDW 20.6 H Plt Count Lymph % (Auto) [place] # Seg Neutrophils % Seg Neuts % (Manual) 90.0 H Lymphocytes % (Manual) 2.0 L Seg Neutrophils # Seg Neutrophils # Man 20.8 H Lymphocytes # (Manual) 0.5 L PT INR D-Dimer ABG pH ABG pO2 65.8 L ABG HCO3 ABG O2 Saturation 92.2 L ABG Base Excess ABG Hemoglobin 8.3 L Oxyhemoglobin 90.6 L Sodium Potassium Chloride Carbon Dioxide BUN Creatinine Glucose POC Glucose 132 H Lactic Acid Calcium Magnesium Iron TIBC Ferritin AST ALT Lactate Dehydrogenase Troponin T C-Reactive Protein Total Protein Albumin Cholesterol LDL Cholesterol Direct HDL Cholesterol Urine WBC (Auto) Vancomycin Trough Coronavirus (PCR) Crossmatch 07/07/19 07/07/19 07/07/19 05:34 11:50 15:58 WBC RBC Hgb 8.1 L Hct 24.2 L MCV MCH MCHC RDW Plt Count Lymph % (Auto) [place] # Seg Neutrophils % Seg Neuts % (Manual) Lymphocytes % (Manual) Seg Neutrophils # Seg Neutrophils # Man Lymphocytes # (Manual) PT INR D-Dimer ABG pH ABG pO2 ABG HCO3 ABG O2 Saturation ABG Base Excess ABG Hemoglobin Oxyhemoglobin Sodium 135 L Potassium 3.3 L Chloride Carbon Dioxide 20 L BUN 27 H Creatinine 0.6 L Glucose 121 H POC Glucose 123 H Lactic Acid Calcium 8.0 L Magnesium Iron TIBC Ferritin AST ALT Lactate Dehydrogenase Troponin T C-Reactive Protein Total Protein Albumin Cholesterol LDL Cholesterol Direct HDL Cholesterol Urine WBC (Auto) Vancomycin Trough Coronavirus (PCR) Crossmatch 07/07/19 07/07/19 07/07/19 17:42 22:00 23:53 WBC RBC Hgb 8.0 L Hct 23.4 L MCV MCH MCHC RDW Plt Count Lymph % (Auto) [place] # Seg Neutrophils % Seg Neuts % (Manual) Lymphocytes % (Manual) Seg Neutrophils # Seg Neutrophils # Man Lymphocytes # (Manual) PT INR D-Dimer ABG pH ABG pO2 ABG HCO3 ABG O2 Saturation ABG Base Excess ABG Hemoglobin Oxyhemoglobin Sodium Potassium Chloride Carbon Dioxide BUN Creatinine Glucose POC Glucose 107 H 117 H Lactic Acid Calcium Magnesium Iron TIBC Ferritin AST ALT Lactate Dehydrogenase Troponin T C-Reactive Protein Total Protein Albumin Cholesterol LDL Cholesterol Direct HDL Cholesterol Urine WBC (Auto) Vancomycin Trough Coronavirus (PCR) Crossmatch 07/08/19 07/08/19 07/08/19 00:45 00:45 00:45 WBC RBC Hgb Hct MCV MCH MCHC RDW Plt Count Lymph % (Auto) [place] # Seg Neutrophils % Seg Neuts % (Manual) Lymphocytes % (Manual) Seg Neutrophils # Seg Neutrophils # Man Lymphocytes # (Manual) PT INR D-Dimer 1142.18 H ABG pH ABG pO2 ABG HCO3 ABG O2 Saturation ABG Base Excess ABG Hemoglobin Oxyhemoglobin Sodium Potassium Chloride Carbon Dioxide BUN Creatinine Glucose POC Glucose Lactic Acid Calcium Magnesium Iron TIBC Ferritin 839.0 H AST ALT Lactate Dehydrogenase 253 H Troponin T C-Reactive Protein 18.90 H Total Protein Albumin Cholesterol LDL Cholesterol Direct HDL Cholesterol Urine WBC (Auto) Vancomycin Trough Coronavirus (PCR) Crossmatch 07/08/19 07/08/19 07/08/19 04:30 05:11 12:02 WBC RBC Hgb Hct MCV MCH MCHC RDW Plt Count Lymph % (Auto) [place] # Seg Neutrophils % Seg Neuts % (Manual) Lymphocytes % (Manual) Seg Neutrophils # Seg Neutrophils # Man Lymphocytes # (Manual) PT INR D-Dimer ABG pH ABG pO2 66.0 L ABG HCO3 ABG O2 Saturation 92.3 L ABG Base Excess ABG Hemoglobin 7.7 L Oxyhemoglobin 90.7 L Sodium Potassium Chloride Carbon Dioxide BUN Creatinine Glucose POC Glucose 108 H 153 H Lactic Acid Calcium Magnesium Iron TIBC Ferritin AST ALT Lactate Dehydrogenase Troponin T C-Reactive Protein Total Protein Albumin Cholesterol LDL Cholesterol Direct HDL Cholesterol Urine WBC (Auto) Vancomycin Trough Coronavirus (PCR) Crossmatch 07/08/19 07/08/19 07/08/19 16:15 18:22 23:35 WBC RBC Hgb Hct MCV MCH MCHC RDW Plt Count Lymph % (Auto) [place] # Seg Neutrophils % Seg Neuts % (Manual) Lymphocytes % (Manual) Seg Neutrophils # Seg Neutrophils # Man Lymphocytes # (Manual) PT INR D-Dimer ABG pH ABG pO2 ABG HCO3 ABG O2 Saturation ABG Base Excess ABG Hemoglobin Oxyhemoglobin Sodium 134 L Potassium 3.3 L Chloride Carbon Dioxide 21 L BUN 27 H Creatinine 0.6 L Glucose 146 H POC Glucose 134 H 133 H Lactic Acid Calcium Magnesium Iron TIBC Ferritin AST ALT Lactate Dehydrogenase Troponin T C-Reactive Protein Total Protein Albumin Cholesterol LDL Cholesterol Direct HDL Cholesterol Urine WBC (Auto) Vancomycin Trough Coronavirus (PCR) Crossmatch 07/09/19 07/09/19 07/09/19 04:30 04:30 05:00 WBC 18.9 H RBC 2.77 L Hgb 7.4 L Hct 22.8 L MCV 82 L MCH 27 L MCHC RDW 20.9 H Plt Count 130 L Lymph % (Auto) [place] # Seg Neutrophils % Seg Neuts % (Manual) 84.0 H Lymphocytes % (Manual) 0 L Seg Neutrophils # Seg Neutrophils # Man 15.9 H Lymphocytes # (Manual) 0.0 L PT INR D-Dimer ABG pH ABG pO2 ABG HCO3 ABG O2 Saturation ABG Base Excess ABG Hemoglobin Oxyhemoglobin Sodium Potassium 3.1 L Chloride Carbon Dioxide BUN 26 H Creatinine 0.5 L Glucose 125 H POC Glucose 155 H Lactic Acid Calcium Magnesium Iron TIBC Ferritin AST ALT Lactate Dehydrogenase Troponin T C-Reactive Protein Total Protein Albumin Cholesterol LDL Cholesterol Direct HDL Cholesterol Urine WBC (Auto) Vancomycin Trough Coronavirus (PCR) Crossmatch 07/09/19 07/09/19 07/09/19 05:55 12:22 17:50 WBC RBC Hgb Hct MCV MCH MCHC RDW Plt Count Lymph % (Auto) [place] # Seg Neutrophils % Seg Neuts % (Manual) Lymphocytes % (Manual) Seg Neutrophils # Seg Neutrophils # Man Lymphocytes # (Manual) PT INR D-Dimer ABG pH ABG pO2 62.8 L ABG HCO3 ABG O2 Saturation ABG Base Excess ABG Hemoglobin 6.1 L Oxyhemoglobin 93.9 L Sodium Potassium Chloride Carbon Dioxide BUN Creatinine Glucose POC Glucose 115 H 133 H Lactic Acid Calcium Magnesium Iron TIBC Ferritin AST ALT Lactate Dehydrogenase Troponin T C-Reactive Protein Total Protein Albumin Cholesterol LDL Cholesterol Direct HDL Cholesterol Urine WBC (Auto) Vancomycin Trough Coronavirus (PCR) Crossmatch 07/10/19 07/10/19 07/10/19 00:38 04:00 04:00 WBC RBC Hgb Hct MCV MCH MCHC RDW Plt Count Lymph % (Auto) [place] # Seg Neutrophils % Seg Neuts % (Manual) Lymphocytes % (Manual) Seg Neutrophils # Seg Neutrophils # Man Lymphocytes # (Manual) PT INR D-Dimer ABG pH ABG pO2 ABG HCO3 ABG O2 Saturation ABG Base Excess ABG Hemoglobin Oxyhemoglobin Sodium Potassium Chloride 107.9 H Carbon Dioxide BUN 26 H Creatinine 0.4 L Glucose 137 H POC Glucose 122 H Lactic Acid Calcium Magnesium 1.50 L Iron TIBC Ferritin AST ALT Lactate Dehydrogenase 277 H Troponin T C-Reactive Protein 15.10 H Total Protein Albumin Cholesterol LDL Cholesterol Direct HDL Cholesterol Urine WBC (Auto) Vancomycin Trough Coronavirus (PCR) Crossmatch 07/10/19 07/10/19 07/10/19 04:07 05:21 17:25 WBC RBC Hgb Hct MCV MCH MCHC RDW Plt Count Lymph % (Auto) [place] # Seg Neutrophils % Seg Neuts % (Manual) Lymphocytes % (Manual) Seg Neutrophils # Seg Neutrophils # Man Lymphocytes # (Manual) PT INR D-Dimer ABG pH ABG pO2 65.6 L ABG HCO3 26.3 H ABG O2 Saturation ABG Base Excess ABG Hemoglobin 6.7 L Oxyhemoglobin Sodium Potassium Chloride Carbon Dioxide BUN Creatinine Glucose POC Glucose 144 H 113 H Lactic Acid Calcium Magnesium Iron TIBC Ferritin AST ALT Lactate Dehydrogenase Troponin T C-Reactive Protein Total Protein Albumin Cholesterol LDL Cholesterol Direct HDL Cholesterol Urine WBC (Auto) Vancomycin Trough Coronavirus (PCR) Crossmatch 07/11/19 07/11/19 07/11/19 00:07 05:14 05:25 WBC RBC Hgb Hct MCV MCH MCHC RDW Plt Count Lymph % (Auto) [place] # Seg Neutrophils % Seg Neuts % (Manual) Lymphocytes % (Manual) Seg Neutrophils # Seg Neutrophils # Man Lymphocytes # (Manual) PT INR D-Dimer ABG pH ABG pO2 ABG HCO3 ABG O2 Saturation ABG Base Excess ABG Hemoglobin 5.8 L Oxyhemoglobin Sodium Potassium Chloride 108.0 H Carbon Dioxide BUN 26 H Creatinine 0.4 L Glucose 110 H POC Glucose 121 H Lactic Acid Calcium Magnesium Iron TIBC Ferritin AST ALT Lactate Dehydrogenase Troponin T C-Reactive Protein Total Protein Albumin Cholesterol LDL Cholesterol Direct HDL Cholesterol Urine WBC (Auto) Vancomycin Trough Coronavirus (PCR) Crossmatch 07/11/19 07/11/19 07/11/19 12:27 18:00 23:42 WBC RBC Hgb Hct MCV MCH MCHC RDW Plt Count Lymph % (Auto) [place] # Seg Neutrophils % Seg Neuts % (Manual) Lymphocytes % (Manual) Seg Neutrophils # Seg Neutrophils # Man Lymphocytes # (Manual) PT INR D-Dimer ABG pH ABG pO2 ABG HCO3 ABG O2 Saturation ABG Base Excess ABG Hemoglobin Oxyhemoglobin Sodium Potassium Chloride Carbon Dioxide BUN Creatinine Glucose POC Glucose 158 H 141 H 142 H Lactic Acid Calcium Magnesium Iron TIBC Ferritin AST ALT Lactate Dehydrogenase Troponin T C-Reactive Protein Total Protein Albumin Cholesterol LDL Cholesterol Direct HDL Cholesterol Urine WBC (Auto) Vancomycin Trough Coronavirus (PCR) Crossmatch 07/12/19 07/12/19 07/12/19 04:46 04:46 05:23 WBC 23.6 H RBC 2.51 L Hgb 6.7 L Hct 20.8 L MCV 83 L MCH 27 L MCHC RDW 20.3 H Plt Count Lymph % (Auto) [place] # Seg Neutrophils % Seg Neuts % (Manual) 94.0 H Lymphocytes % (Manual) 4.0 L Seg Neutrophils # Seg Neutrophils # Man 22.2 H Lymphocytes # (Manual) 0.9 L PT INR D-Dimer ABG pH ABG pO2 ABG HCO3 ABG O2 Saturation ABG Base Excess ABG Hemoglobin Oxyhemoglobin Sodium Potassium Chloride 107.1 H Carbon Dioxide BUN 25 H Creatinine 0.4 L Glucose 122 H POC Glucose 118 H Lactic Acid Calcium Magnesium Iron TIBC Ferritin AST ALT Lactate Dehydrogenase Troponin T C-Reactive Protein Total Protein Albumin Cholesterol LDL Cholesterol Direct HDL Cholesterol Urine WBC (Auto) Vancomycin Trough Coronavirus (PCR) Crossmatch 07/12/19 07/12/19 07/12/19 08:49 11:36 18:15 WBC RBC Hgb Hct MCV MCH MCHC RDW Plt Count Lymph % (Auto) [place] # Seg Neutrophils % Seg Neuts % (Manual) Lymphocytes % (Manual) Seg Neutrophils # Seg Neutrophils # Man Lymphocytes # (Manual) PT INR D-Dimer ABG pH ABG pO2 ABG HCO3 ABG O2 Saturation ABG Base Excess ABG Hemoglobin Oxyhemoglobin Sodium Potassium Chloride Carbon Dioxide BUN Creatinine Glucose POC Glucose 124 H 110 H Lactic Acid Calcium Magnesium Iron TIBC Ferritin AST ALT Lactate Dehydrogenase Troponin T C-Reactive Protein Total Protein Albumin Cholesterol LDL Cholesterol Direct HDL Cholesterol Urine WBC (Auto) Vancomycin Trough Coronavirus (PCR) Crossmatch See Detail 07/12/19 07/13/19 07/13/19 23:16 05:26 06:50 WBC 23.9 H RBC 2.58 L Hgb 6.9 L Hct 21.5 L MCV 83 L MCH 27 L MCHC RDW 19.0 H Plt Count Lymph % (Auto) [place] # Seg Neutrophils % Seg Neuts % (Manual) 96.0 H Lymphocytes % (Manual) 3.0 L Seg Neutrophils # Seg Neutrophils # Man 22.9 H Lymphocytes # (Manual) 0.7 L PT INR D-Dimer ABG pH ABG pO2 ABG HCO3 ABG O2 Saturation ABG Base Excess ABG Hemoglobin Oxyhemoglobin Sodium Potassium Chloride Carbon Dioxide BUN Creatinine Glucose POC Glucose 108 H 126 H Lactic Acid Calcium Magnesium Iron TIBC Ferritin AST ALT Lactate Dehydrogenase Troponin T C-Reactive Protein Total Protein Albumin Cholesterol LDL Cholesterol Direct HDL Cholesterol Urine WBC (Auto) Vancomycin Trough Coronavirus (PCR) Crossmatch 07/13/19 07/13/19 07/13/19 06:50 12:38 18:05 WBC RBC Hgb Hct MCV MCH MCHC RDW Plt Count Lymph % (Auto) [place] # Seg Neutrophils % Seg Neuts % (Manual) Lymphocytes % (Manual) Seg Neutrophils # Seg Neutrophils # Man Lymphocytes # (Manual) PT INR D-Dimer ABG pH ABG pO2 ABG HCO3 ABG O2 Saturation ABG Base Excess ABG Hemoglobin Oxyhemoglobin Sodium Potassium Chloride Carbon Dioxide BUN 33 H Creatinine 0.5 L Glucose 136 H POC Glucose 164 H 145 H Lactic Acid Calcium Magnesium Iron TIBC Ferritin AST ALT Lactate Dehydrogenase Troponin T C-Reactive Protein Total Protein Albumin Cholesterol LDL Cholesterol Direct HDL Cholesterol Urine WBC (Auto) Vancomycin Trough Coronavirus (PCR) Crossmatch 07/13/19 07/14/19 07/14/19 18:30 00:21 04:40 WBC 22.9 H RBC 2.45 L Hgb 6.6 L Hct 21.1 L MCV MCH 27 L MCHC 31 L RDW 19.2 H Plt Count Lymph % (Auto) [place] # Seg Neutrophils % Seg Neuts % (Manual) 91.0 H Lymphocytes % (Manual) 7.0 L Seg Neutrophils # Seg Neutrophils # Man 20.8 H Lymphocytes # (Manual) PT INR D-Dimer ABG pH ABG pO2 58.1 L ABG HCO3 ABG O2 Saturation 88.7 L ABG Base Excess ABG Hemoglobin 7.8 L Oxyhemoglobin 86.8 L Sodium Potassium Chloride Carbon Dioxide BUN Creatinine Glucose POC Glucose 118 H Lactic Acid Calcium Magnesium Iron TIBC Ferritin AST ALT Lactate Dehydrogenase Troponin T C-Reactive Protein Total Protein Albumin Cholesterol LDL Cholesterol Direct HDL Cholesterol Urine WBC (Auto) Vancomycin Trough Coronavirus (PCR) Crossmatch 07/14/19 07/14/19 07/14/19 04:40 05:38 05:45 WBC RBC Hgb Hct MCV MCH MCHC RDW Plt Count Lymph % (Auto) [place] # Seg Neutrophils % Seg Neuts % (Manual) Lymphocytes % (Manual) Seg Neutrophils # Seg Neutrophils # Man Lymphocytes # (Manual) PT INR D-Dimer ABG pH 7.230 L ABG pO2 72.1 L ABG HCO3 ABG O2 Saturation 89.3 L ABG Base Excess -2.7 L ABG Hemoglobin 6.7 L Oxyhemoglobin 87.7 L Sodium Potassium Chloride 107.4 H Carbon Dioxide BUN 45 H Creatinine Glucose 101 H POC Glucose 154 H Lactic Acid Calcium Magnesium Iron TIBC Ferritin AST ALT Lactate Dehydrogenase Troponin T C-Reactive Protein Total Protein Albumin Cholesterol LDL Cholesterol Direct HDL Cholesterol Urine WBC (Auto) Vancomycin Trough Coronavirus (PCR) Crossmatch 07/14/19 07/14/19 07/14/19 12:25 18:20 19:01 WBC 22.4 H RBC 2.70 L Hgb 7.5 L Hct 23.3 L MCV MCH MCHC RDW 19.5 H Plt Count Lymph % (Auto) [place] # Seg Neutrophils % Seg Neuts % (Manual) Lymphocytes % (Manual) Seg Neutrophils # Seg Neutrophils # Man Lymphocytes # (Manual) PT INR D-Dimer ABG pH ABG pO2 ABG HCO3 ABG O2 Saturation ABG Base Excess ABG Hemoglobin Oxyhemoglobin Sodium Potassium Chloride Carbon Dioxide BUN Creatinine Glucose POC Glucose 136 H 131 H Lactic Acid Calcium Magnesium Iron TIBC Ferritin AST ALT Lactate Dehydrogenase Troponin T C-Reactive Protein Total Protein Albumin Cholesterol LDL Cholesterol Direct HDL Cholesterol Urine WBC (Auto) Vancomycin Trough Coronavirus (PCR) Crossmatch [id number] 07/15/19 00:17 04:35 05:18 WBC 20.6 H RBC 2.41 L Hgb 6.8 L Hct 20.7 L MCV MCH MCHC RDW 20.2 H Plt Count Lymph % (Auto) [place] # Seg Neutrophils % Seg Neuts % (Manual) 92.0 H Lymphocytes % (Manual) 5.0 L Seg Neutrophils # Seg Neutrophils # Man 19.0 H Lymphocytes # (Manual) 1.0 L PT INR D-Dimer ABG pH 7.342 L ABG pO2 ABG HCO3 ABG O2 Saturation ABG Base Excess -3.1 L ABG Hemoglobin 7.2 L Oxyhemoglobin 94.9 L Sodium Potassium Chloride Carbon Dioxide BUN Creatinine Glucose POC Glucose 116 H Lactic Acid Calcium Magnesium Iron TIBC Ferritin AST ALT Lactate Dehydrogenase Troponin T C-Reactive Protein Total Protein Albumin Cholesterol LDL Cholesterol Direct HDL Cholesterol Urine WBC (Auto) Vancomycin Trough Coronavirus (PCR) Crossmatch 07/15/19 07/15/19 07/15/19 05:18 05:57 11:28 WBC RBC Hgb Hct MCV MCH MCHC RDW Plt Count Lymph % (Auto) [place] # Seg Neutrophils % Seg Neuts % (Manual) Lymphocytes % (Manual) Seg Neutrophils # Seg Neutrophils # Man Lymphocytes # (Manual) PT INR D-Dimer ABG pH ABG pO2 ABG HCO3 ABG O2 Saturation ABG Base Excess ABG Hemoglobin Oxyhemoglobin Sodium Potassium Chloride Carbon Dioxide 20 L BUN 59 H Creatinine Glucose 140 H POC Glucose 139 H 117 H Lactic Acid Calcium Magnesium Iron TIBC Ferritin AST ALT Lactate Dehydrogenase Troponin T C-Reactive Protein Total Protein Albumin Cholesterol LDL Cholesterol Direct HDL Cholesterol Urine WBC (Auto) Vancomycin Trough Coronavirus (PCR) Crossmatch 07/15/19 07/16/19 07/16/19 18:13 00:06 03:43 WBC RBC Hgb Hct MCV MCH MCHC RDW Plt Count Lymph % (Auto) [place] # Seg Neutrophils % Seg Neuts % (Manual) Lymphocytes % (Manual) Seg Neutrophils # Seg Neutrophils # Man Lymphocytes # (Manual) PT INR D-Dimer ABG pH 7.344 L ABG pO2 68.6 L ABG HCO3 ABG O2 Saturation ABG Base Excess -3.5 L ABG Hemoglobin 6.1 L Oxyhemoglobin 93.3 L Sodium Potassium Chloride Carbon Dioxide BUN Creatinine Glucose POC Glucose 114 H 119 H Lactic Acid Calcium Magnesium Iron TIBC Ferritin AST ALT Lactate Dehydrogenase Troponin T C-Reactive Protein Total Protein Albumin Cholesterol LDL Cholesterol Direct HDL Cholesterol Urine WBC (Auto) Vancomycin Trough Coronavirus (PCR) Crossmatch 07/16/19 07/16/19 07/16/19 04:41 04:41 12:09 WBC 19.6 H RBC 2.81 L Hgb 7.7 L Hct 24.0 L MCV MCH 27 L MCHC RDW 19.4 H Plt Count 514 H Lymph % (Auto) 6.7 L [place] # 1.0 H Seg Neutrophils % 87.0 H Seg Neuts % (Manual) Lymphocytes % (Manual) Seg Neutrophils # 17.0 H Seg Neutrophils # Man Lymphocytes # (Manual) PT INR D-Dimer ABG pH ABG pO2 ABG HCO3 ABG O2 Saturation ABG Base Excess ABG Hemoglobin Oxyhemoglobin Sodium Potassium 5.9 H Chloride Carbon Dioxide 21 L BUN 73 H Creatinine 2.0 H Glucose POC Glucose 141 H Lactic Acid Calcium Magnesium Iron TIBC Ferritin AST ALT Lactate Dehydrogenase Troponin T C-Reactive Protein Total Protein Albumin Cholesterol LDL Cholesterol Direct HDL Cholesterol Urine WBC (Auto) Vancomycin Trough Coronavirus (PCR) Crossmatch Allied health notes reviewed: nursing
--- NOTE | 2019-07-16 15:38 | Progress Note ---
Assessment and Plan Cultures: 07/03/2019 urine culture: No growth 07/03/2019 Tracheal aspirate: E.coli A/P: 69-year-old male with CVA, hypertension, dementia, schizophrenia, alcohol use disorder was admitted to the emergency room after being brought in by EMS with progressive shortness of breath and unresponsiveness. He was noted to have agonal breathing and a faint pulse requiring CPR. It seems patient was on hospice recently. #Shock, likely septic: Lactic acidosis. Remains off pressors. #Severe COVID-19 disease and pneumonia: Elevated markers. Completed Plaquenil. Completed Ceftriaxone for treatment E.coli in tracheal aspirate. #Acute respiratory failure: on mechanical ventilation. #Transaminitis: Likely from COVID-19, shock #Leucocytosis: ?reactive from above. Recs: continue supportive care for COVID-19 agree with DNR. Poor prognosis. It seems patient was on hospice recently Mekhi Barboza MD [facility] ([facility]) M: [phone] O: [phone] F: [phone] Subjective Date of service: 07/16/19 Principal diagnosis: Bilateral pneumonia, severe sepsis with septic shock, encephalopathy Interval history: Fevers overnight to 102.3 with an elevated white count of 19. Objective - Exam Narrative Exam: Physical Exam (reviewed in chart due to PPE conservation) Constitutional: intubated, sedated, on the vent Head, Ears, Nose: normocephalic, atraumatic Eyes: limited due to PPE conservation strategy Neck: intubated Oral: intubated Cardiovascular: limited due to PPE conservation strategy Respiratory: limited due to PPE conservation strategy GI: limited due to PPE conservation strategy Musculoskeletal: limited due to PPE conservation strategy Skin: limited due to PPE conservation strategy Hem/Lymphatic: limited due to PPE conservation strategy Psych: no agitation Neurological: sedated, intubated, on the vent, exam limited - Constitutional Vitals: Vital Signs Temp Pulse Resp BP Pulse Ox 98.6 F 128 H 18 119/66 99 07/16/19 12:00 07/16/19 15:00 07/16/19 15:00 07/16/19 15:00 07/16/19 15:00 Temperature -Last 24 Hours Temperature 98.6 F Temperature 99.9 F Temperature 100.2 F Temperature 102.3 F Temperature 101.5 F Temperature 101.2 F - Labs CBC & Chem 7: 07/16/19 04:41 07/16/19 04:41 Labs: Abnormal lab results 07/15/19 07/15/19 07/16/19 Range/Units 11:28 18:13 00:06 WBC (4.5-11.0) K/mm3 RBC (3.65-5.03) M/mm3 Hgb (11.8-15.2) gm/dl Hct (35.5-45.6) % MCH (28-32) pg RDW (13.2-15.2) % Plt Count (140-440) K/mm3 Lymph % (Auto) (13.4-35.0) % [place] # (0.0-0.8) K/mm3 Seg Neutrophils % (40.0-70.0) % Seg Neutrophils # (1.8-7.7) K/mm3 ABG pH (7.350-7.450) pH Units ABG pO2 (80.0-90.0) mm Hg ABG Base Excess (-2.0-3.0) mmol/L ABG Hemoglobin (14.0-18.0) gm/dl Oxyhemoglobin (95.0-99.0) % Potassium (3.6-5.0) mmol/L Carbon Dioxide (22-30) mmol/L BUN (9-20) mg/dL Creatinine (0.8-1.5) mg/dL POC Glucose 117 H 114 H 119 H (70-105) 07/16/19 07/16/19 07/16/19 Range/Units 03:43 04:41 04:41 WBC 19.6 H (4.5-11.0) K/mm3 RBC 2.81 L (3.65-5.03) M/mm3 Hgb 7.7 L (11.8-15.2) gm/dl Hct 24.0 L (35.5-45.6) % MCH 27 L (28-32) pg RDW 19.4 H (13.2-15.2) % Plt Count 514 H (140-440) K/mm3 Lymph % (Auto) 6.7 L (13.4-35.0) % [place] # 1.0 H (0.0-0.8) K/mm3 Seg Neutrophils % 87.0 H (40.0-70.0) % Seg Neutrophils # 17.0 H (1.8-7.7) K/mm3 ABG pH 7.344 L (7.350-7.450) pH Units ABG pO2 68.6 L (80.0-90.0) mm Hg ABG Base Excess -3.5 L (-2.0-3.0) mmol/L ABG Hemoglobin 6.1 L (14.0-18.0) gm/dl Oxyhemoglobin 93.3 L (95.0-99.0) % Potassium 5.9 H (3.6-5.0) mmol/L Carbon Dioxide 21 L (22-30) mmol/L BUN 73 H (9-20) mg/dL Creatinine 2.0 H (0.8-1.5) mg/dL POC Glucose (70-105) // Range/Units 12:09 WBC (4.5-11.0) K/mm3 RBC (3.65-5.03) M/mm3 Hgb (11.8-15.2) gm/dl Hct (35.5-45.6) % MCH (28-32) pg RDW (13.2-15.2) % Plt Count (140-440) K/mm3 Lymph % (Auto) (13.4-35.0) % [place] # (0.0-0.8) K/mm3 Seg Neutrophils % (40.0-70.0) % Seg Neutrophils # (1.8-7.7) K/mm3 ABG pH (7.350-7.450) pH Units ABG pO2 (80.0-90.0) mm Hg ABG Base Excess (-2.0-3.0) mmol/L ABG Hemoglobin (14.0-18.0) gm/dl Oxyhemoglobin (95.0-99.0) % Potassium (3.6-5.0) mmol/L Carbon Dioxide (22-30) mmol/L BUN (9-20) mg/dL Creatinine (0.8-1.5) mg/dL POC Glucose 141 H (70-105)
[2019-07-16 17:45] LABS: Calcium 8.5 mg/dL (8.4-10.2)
[2019-07-16] MEDS: SODIUM CHLORIDE 0.9% 1000 ML 1,000 ML IV SCH (17:53)
[2019-07-16] MEDS: fentaNYL DRIP Premix 2,000 MCG/100 ML BAG IV SCH (20:49)
[2019-07-17] MEDS: INSULIN LISPRO 100 UNIT/ML SUB-Q SCH ×4 (00:51→18:39)
[2019-07-17] MEDS: NORepinephrine/NS 4 MG-250 ML 4 MG/250 ML BAG IV SCH ×3 (02:35→23:30)
[2019-07-17] MEDS: SODIUM CHLORIDE 0.9% 1000 ML 1,000 ML IV SCH (03:06)
[2019-07-17 05:06] LABS: ABG HCO3 22.4 mmol/L (20.0-26.0); ABG Methemoglobin 0.5 % (0.0-1.5); ABG Oxygen Saturation 96.5 % (95.0-99.0); ABG PCO2 54.5 mm Hg; ABG PH 7.231 pH Units (7.350-7.450); ABG PO2 95.3 mm Hg (80.0-90.0)
[2019-07-17 06:00] LABS: Basophils # (Auto) 0.1 K/mm3 (0.0-0.1); Basophils % (Auto) 0.4 % (0.0-1.8); Eosinophils # (Auto) 0.2 K/mm3 (0.0-0.4); Eosinophils % (Auto) 1.1 % (0.0-4.3); Hematocrit 25.5 % (35.5-45.6); Lymphocytes # (Auto) 0.6 K/mm3 (1.2-5.4); Lymphocytes % (Auto) 3.6 % (13.4-35.0); Mean Corpuscular HGB Conc 31 % (32-34); Mean Corpuscular Volume 87 fl (84-94); Monocytes # (Auto) 1.2 K/mm3 (0.0-0.8); Monocytes % (Auto) 7.4 % (0.0-7.3); Platelet Count 564 K/mm3 (140-440); Red Blood Count 2.92 M/mm3 (3.65-5.03); Red Cell Distribution Width 19.7 % (13.2-15.2)
[2019-07-17 06:13] LABS: BUN/Creatinine Ratio 49; Blood Urea Nitrogen 68 mg/dL (9-20); Calcium 8.6 mg/dL (8.4-10.2); Hemolysis Index 13
[2019-07-17] MEDS: LIPASE 10,500/PROTEASE 25,000/AMYLASE 43,750 (UNITS) DR CAP FEEDTUBE PRN ×2 (08:06→21:42)
--- NOTE | 2019-07-17 09:22 | Progress Note ---
Assessment and Plan 1. Hypoantremia: Suspect SIADH. Sodium level has improved, now 139. Monitor Sodium level. 2. FEN: Metabolic acidosis, monitor. Hyperkalemia, improved, monitor. Monitor volume status and lytes. 3. Acute kidney injury: Vasomotor MIRANDA likely 2/2 persistent hypotension. Creatinine is improving, now 1.4 from 2.0 from 1.5. Initial bump in creatinine was 07/14. Monitor renal function. Avoid nephrotoxic agents. Meds dosage based on GFR. 4. Acute hypoxic respiratory failure: Currently intubated and on vent. Pulmonary following. 5. Severe Sepsis, POA. Tachycardia is improving with metoprolol but still present. Levophed dose titrated down and BP is improving at time of dictation. Followed by ID. 6. Severe COVID-19 pneumonia. 7. Shock: Back on pressors although dose titrated down from yesterday. Receiving IV fluid bolus as needed for hypotension. Monitor BP closely. 8. Microcytic anemia, POA: Hgb today 6.8. 1 U PRBC to transfuse. Has received total of 3 units PRBC prior to today's transfusion. Hgb improved 07/15 s/p PRBC. Monitor hgb. 9. Possible occlusion of PEG tube: Occlusion noted by staff overnight. Imaging done and report pending. Concern for bowel blockage not excluded. 10. Diabetes mellitus. 11. COPD. 12. Encephalopathy, POA: Metabolic. Subjective Date of service: 07/17/19 Principal diagnosis: Bilateral pneumonia, severe sepsis with septic shock, encephalopathy Interval history: Patient was only seen from outside the glass door to prevent exposure to COVID- 19. PPE is also limited supply. Reviewed all notes, vitals, and labs to date. Care team concerned about occlusion in PEG and radiology report pending. Objective - Exam Narrative Exam: General appearance: intubated on ventilator, carroll HEENT: not examined Neck: not examined Respiratory: not examined Heart: sinus tach on the monitor Gastrointestinal: not examined Integumentary: not examined Neurologic: not examined Ext: not examined - Vital Signs Vital signs: Vital Signs - 12hr 07/16/19 07/16/19 07/16/19 21:30 22:00 22:30 Temperature Pulse Rate 119 H 116 H 112 H Pulse Rate [ From Monitor] Respiratory 16 16 16 Rate Blood Pressure 108/61 91/56 98/59 O2 Sat by Pulse 94 92 Oximetry 07/16/19 07/16/19 07/16/19 23:00 23:01 23:25 Temperature 99.9 F H Pulse Rate 112 H 112 H Pulse Rate [ From Monitor] Respiratory 16 16 Rate Blood Pressure 96/57 96/57 O2 Sat by Pulse 96 96 Oximetry 07/16/19 07/16/19 07/17/19 23:30 23:40 00:00 Temperature Pulse Rate 112 H 112 H 113 H Pulse Rate [ 113 H From Monitor] Respiratory 16 16 Rate Blood Pressure 100/55 100/55 92/54 O2 Sat by Pulse 99 95 100 Oximetry 07/17/19 07/17/19 07/17/19 00:30 01:00 01:30 Temperature Pulse Rate 114 H 113 H 112 H Pulse Rate [ From Monitor] Respiratory 15 16 16 Rate Blood Pressure 106/56 103/61 98/66 O2 Sat by Pulse 100 100 100 Oximetry 07/17/19 07/17/19 07/17/19 02:00 02:30 03:00 Temperature Pulse Rate 112 H 113 H 118 H Pulse Rate [ From Monitor] Respiratory 16 16 16 Rate Blood Pressure 108/62 87/49 101/57 O2 Sat by Pulse 100 100 99 Oximetry 07/17/19 07/17/19 07/17/19 03:07 03:30 04:00 Temperature 98.9 F Pulse Rate 115 H 115 H Pulse Rate [ 115 H From Monitor] Respiratory 16 16 Rate Blood Pressure 110/65 117/64 O2 Sat by Pulse 100 100 Oximetry 07/17/19 07/17/19 07/17/19 04:25 04:30 05:00 Temperature Pulse Rate 115 H 117 H 117 H Pulse Rate [ From Monitor] Respiratory 16 15 Rate Blood Pressure 117/64 110/62 121/67 O2 Sat by Pulse 115 H 97 98 Oximetry 07/17/19 07/17/19 07/17/19 05:30 06:00 06:30 Temperature Pulse Rate 117 H 119 H 117 H Pulse Rate [ From Monitor] Respiratory 16 16 12 Rate Blood Pressure 123/73 124/70 104/59 O2 Sat by Pulse 99 100 100 Oximetry 07/17/19 07/17/19 07/17/19 07:00 07:30 08:00 Temperature 96.6 F L Pulse Rate 115 H 115 H 114 H Pulse Rate [ From Monitor] Respiratory 12 18 18 Rate Blood Pressure 112/65 119/69 118/62 O2 Sat by Pulse 100 100 100 Oximetry 07/17/19 07/17/19 08:30 09:00 Temperature Pulse Rate 115 H 115 H Pulse Rate [ From Monitor] Respiratory 18 18 Rate Blood Pressure 122/65 117/69 O2 Sat by Pulse 100 100 Oximetry - Lab 07/17/19 04:39 07/17/19 04:39 Most recent lab results ABG pH 7.231 pH Units (7.350-7.450) L 07/17/19 04:20 ABG pCO2 54.5 mm Hg 07/17/19 04:20 ABG pO2 95.3 mm Hg (80.0-90.0) H 07/17/19 04:20 ABG HCO3 22.4 mmol/L (20.0-26.0) 07/17/19 04:20 ABG O2 Saturation 96.5 % (95.0-99.0) 07/17/19 04:20 Calcium 8.6 mg/dL (8.4-10.2) 07/17/19 04:39 Phosphorus 3.60 mg/dL (2.5-4.5) 07/05/19 04:00 Magnesium 1.80 mg/dL (1.7-2.3) 07/11/19 05:14 Medications & Allergies - Medications Allergies/Adverse Reactions: Allergies No Known Allergies Allergy (Unverified 09/09/16 16:29) Home Medications: Home Medications Medication Instructions Recorded Confirmed Last Taken Type Acetaminophen [Tylenol] 500 mg PO TID 07/04/19 07/04/19 Unknown History Albuterol Sulfate [Proair 90 mcg IH TID 07/04/19 07/04/19 Unknown History Digihaler] Amlodipine Besylate [Norvasc] 2.5 mg PO QDAY 07/04/19 07/04/19 Unknown History Aspirin [Aspirin BABY CHEW TAB] 81 mg PO QDAY 07/04/19 07/04/19 Unknown History Atorvastatin Calcium [Lipitor] 80 mg PO QDAY 07/04/19 07/04/19 Unknown History Benztropine Mesylate 0.5 mg PO QDAY 07/04/19 07/04/19 Unknown History Budesonide/Formoterol Fumarate 10.2 gm IH BID 07/04/19 07/04/19 Unknown History [Budesonide-Formoterol 160-4.5] Divalproex ER [DepaKOTE ER] 1,000 mg PO QDAY 07/04/19 07/04/19 Unknown History Docusate Sodium [Colace] 100 mg PO QDAY 07/04/19 07/04/19 Unknown History Folic Acid [Folvite] 1 mg PO QDAY 07/04/19 07/04/19 Unknown History Hydrophilic Ointment [Dermafix] 113 gm TP QDAY 07/04/19 07/04/19 Unknown History Losartan [Cozaar] 100 mg PO QDAY 07/04/19 07/04/19 Unknown History Metformin HCl [Metformin HCl ER] 500 mg PO QDAY 07/04/19 07/04/19 Unknown History Metoprolol Tartrate 25 mg PO BID 07/04/19 07/04/19 Unknown History Multivit with Minerals/Ginseng 1 each PO QDAY 07/04/19 07/04/19 Unknown History [Super Ginseng Multivit Cap] Quetiapine Fumarate [SEROquel Xr] 400 mg PO QHS 07/04/19 07/04/19 Unknown History Sertraline HCl [Zoloft] 100 mg PO QDAY 07/04/19 07/04/19 Unknown History Sildenafil Citrate [Viagra] 100 mg PO QDAY PRN 07/04/19 07/04/19 Unknown History Tamsulosin [Flomax] 0.4 mg PO QDAY 07/04/19 07/04/19 Unknown History Active Medications: Generic Name Dose Route Start Last Admin Trade Name Freq PRN Reason Stop Dose Admin Acetaminophen 650 mg 07/04/19 04:24 Tylenol FL Q6H PRN Pain MILD(1-3)/Fever >100.5/MURO Acetaminophen 650 mg 07/10/19 04:00 07/15/19 20:35 Tylenol PO 650 mg Q6HR PRN Administration Pain, Mild (1-3) FEVER Lipase/Protease/Amylase 1 each 07/04/19 10:04 07/17/19 08:06 Mor Gilbert 10,500 Unit FEEDTUBE 1 each PRN PRN Administration For Clogged Feeding Tube Aspirin 81 mg 07/05/19 10:00 07/16/19 09:30 Baby Aspirin PO 81 mg QDAY TAMMIE Administration Dextrose 50 ml 07/04/19 06:54 D50w (25gm) Syringe IV Q30MIN PRN Hypoglycemia Protocol Docusate Sodium 100 mg 07/10/19 10:00 07/16/19 21:00 Colace PO 100 mg BID TAMMIE Administration Famotidine 20 mg 07/17/19 10:00 Pepcid PO BID TAMMIE Fentanyl 50 mcg 07/12/19 15:09 Sublimaze IV Q10MIN PRN ANALGESIA Folic Acid 1 mg 07/05/19 10:00 07/16/19 09:30 Folvite PO 1 mg QDAY TAMMIE Administration Hydrophilic Ointment 1 applic 07/03/19 19:56 07/05/19 17:42 Vaseline Lip Therapy TP 1 applic Q2HR PRN Administration Dry Lips Norepinephrine 4 mg in 250 mls @ 7.5 mls/hr 07/03/19 23:00 07/17/19 06:00 Levophed Drip 4 Mg/Ns 250 Ml IV 6 mcg/min TITR TAMMIE 22.5 mls/hr Titration Protocol 2 MCG/MIN Fentanyl Citrate 2,000 mcg in 100 mls @ 4.25 mls/hr 07/12/19 16:00 07/16/19 2 0:49 Fentanyl Drip Premix IV 1 mcg/kg/hr TITR TAMMIE 4.25 mls/hr Administration Protocol 1 MCG/KG/HR Sodium Chloride 1,000 mls @ 100 mls/hr 07/16/19 15:45 07/17/19 03:06 Nacl 0.9% 1000 Ml IV 07/18/19 01:44 100 mls/hr DIRECT TAMMIE Administration Insulin Human Lispro 0 unit 07/07/19 12:00 07/17/19 06:50 Humalog SUB-Q Not Given Q6HR TAMMIE Protocol Levetiracetam 750 mg 07/06/19 11:00 07/16/19 21:00 Keppra FEEDTUBE 750 mg Q12HR TAMMIE Administration Metoprolol Tartrate 5 mg 07/12/19 15:08 07/12/19 15:30 Metoprolol IV 5 mg Q6HR PRN Administration Tachyarrhythmias Metoprolol Tartrate 12.5 mg 07/12/19 16:00 07/16/19 21:01 Metoprolol PO 12.5 mg BID TAMMIE Administration Morphine Sulfate 2 mg 07/04/19 04:24 07/13/19 08:06 Morphine IV 2 mg Q4H PRN Administration Pain, Moderate (4-6) Multi-Ingred Cream/Lotion/Oil/Oint 1 applic 07/03/19 19:56 07/05/19 13:19 Artificial Tears Ophth Oint OU 1 applic Q4HR PRN Administration Dry Eye(s) Naloxone HCl 0.1 mg 07/04/19 04:24 Naloxone IV Q2MIN PRN Res Rate </= 8 or 02 SAT < 92% Scopolamine 1 each 07/10/19 11:00 07/16/19 10:05 Transderm-Scop TD 1 each Q3D TAMMIE Administration Simple Syrup 15 ml 07/04/19 10:04 07/10/19 21:56 Simple Syrup FEEDTUBE 15 ml PRN PRN Administration Hypoglycemia Simple Syrup 30 ml 07/04/19 10:04 Simple Syrup FEEDTUBE PRN PRN Hypoglycemia Sodium Bicarbonate 325 mg 07/04/19 10:04 Sodium Bicarbonate FEEDTUBE PRN PRN For Clogged Feeding Tube Sodium Chloride 10 ml 07/04/19 10:00 07/16/19 21:01 Sodium Chloride Flush Syringe 10 Ml IV 10 ml BID TAMMIE Administration Sodium Chloride 10 ml 07/04/19 04:24 Sodium Chloride Flush Syringe 10 Ml IV PRN PRN LINE FLUSH Sodium Hypochlorite 1 applic 07/10/19 14:00 07/16/19 21:04 Dakin's Half Strength TP 1 applicatio BID TAMMIE Administration
--- NOTE | 2019-07-17 09:28 | Progress Note ---
Assessment and Plan Assessment and plan: --Malfunctioning PEG tube; x-ray to check the position X-ray shows that PEG is in place --Hyperkalemia; Calcium gluconate, Kayexalate, follow electrolytes Nephrology following --Septic shock: On Levophed titrate to systolic blood pressure more than 100 --Anemia, Microcytic persistent Transfused 1 unit of PRBC, today Hb 7.7 Stool for occult blood, monitor H&H --COVid positive pneumonia with severe sepsis Received Plaquenil and cefepime, monitor off antibiotics ID following -- Acute respiratory Failure with Hypoxia Due to bilateral PNA with COVID 19 infection. pulmonary critical care following Continue ventilatory support, wean as tolerated and extubate --Acute metabolic encephalopathy Multifactorial, respiratory failure, sepsis, anemia Electrolyte abnormalities, seizures --COPD with exacerbation Likely due to COVID-19 pneumonia Continue scheduled nebs --Pressure Ulcers buttocks, right lateral foot area present upon admission wound care consulted --Hyponatremia, continue IV fluid --DM type 2 Accu-Chek sliding scale coverage ADA diet insulin --HTN Essential, now hypotensive relatively low BP, on IVF. monitor --Seizure D/o/CVA/immobility/BIpolar D/o/SCZ chronic medical conditions, stable --Severe PCM, TF for now, dietary following patient is DNR- Called and verified information Very poor prognosis, Recommend hospice 07/04: COVID +ve, start on plaquinil, called no answer 07/05: transfuse one unit PRBC, Hb dropped to ~6, called and updated 07/06; H&H stable, serum chemistry improved. On mechanical ventilation with high inflammatory markers. Continue Plaquenil and empiric antibiotics. ID following, prognosis remains guarded and extremely poor. 07/07: On mechanical ventilation with high inflammatory markers. Continue Plaquenil and empiric antibiotics. ID following, prognosis remains guarded and extremely poor. 07/08: Called today and verified the CODE STATUS. Patient remains DNR. He is still intubated, with poor prognosis. Continue to follow inflammatory markers. 07/09 wean off from vent as tolerated, completed empiric antibiotic and Plaquenil 07/10 wean off from vent as tolerated. poor prognosis 07/11 hb 6.7 today, transfuse one PRBC. wean off from vent as tolerated. poor prognosis 07/12 remains critically on vent. Hb 6.9 07/13 Hb dropped to 6.6, transfuse 1 unit of PRBC, remains on vent critically ill Hypotensive, fluid bolus, if no improvement start Levophed 07/14; remains anemic with hemoglobin of 6.8, received total 3 units of PRBC Additional 1 unit of PRBC today, stool for occult blood to rule out GI causes Started back on Levophed due to hypotension 07/15; hyperkalemia, corrected with calcium gluconate and Kayexalate, nephrology following Hemoglobin improved to 7.7 after 1 unit PRBC, no evidence of bleeding, septic shock on Levophed 07/16: Today patient's tests show worsening renal function, Nephrology following The high probability of a clinically significant, sudden or life threatening deterioration of the [respiratory, CVS, [place]] system(s) required my full and direct attention, intervention and personal management. The aggregate critical care time was [34] minutes. This time is in addition to time spent performing reported procedures but includes the following: [x] Data Review and interpretation [x] Patient assessment and monitoring of vital signs [x] Documentation [x] Medication orders and management Critical care time 34 minutes History Interval history: Patient seen and examined in his room in ICU this morning Isolation protocol observed, PPE used while entering the room and while evaluating the patient. Remains critically ill on ventilatory support, also requiring levo fed Intubated on vent, vital signs reviewed Hospitalist Physical - Constitutional Vitals: Temp Pulse Resp BP Pulse Ox 96.6 F L 115 H 18 117/69 100 07/17/19 08:00 07/17/19 09:00 07/17/19 09:00 07/17/19 09:00 07/17/19 09:00 General appearance: Present: mild distress, well-nourished, other (Orally intubated on vent) - EENT Eyes: Present: PERRL, EOM intact - Neck Neck: Present: supple, normal ROM - Respiratory Respiratory: bilateral: diminished, rhonchi, negative: rales, wheezing - Cardiovascular Rhythm: regular Heart Sounds: Present: S1 & S2 - Extremities Extremities: no ischemia, No edema - Abdominal General gastrointestinal: soft, non-tender, non-distended, normal bowel sounds - Integumentary Integumentary: Present: clear, warm - Psychiatric Psychiatric: other (On vent) - Neurologic Neurologic: other (On ventilatory support) Results - Labs CBC & Chem 7: 07/17/19 04:39 07/17/19 04:39 Labs: Laboratory Last Values WBC 16.1 K/mm3 (4.5-11.0) H 07/17/19 04:39 RBC 2.92 M/mm3 (3.65-5.03) L 07/17/19 04:39 Hgb 8.0 gm/dl (11.8-15.2) L 07/17/19 04:39 Hct 25.5 % (35.5-45.6) L 07/17/19 04:39 MCV 87 fl (84-94) 07/17/19 04:39 MCH 28 pg (28-32) 07/17/19 04:39 MCHC 31 % (32-34) L 07/17/19 04:39 RDW 19.7 % (13.2-15.2) H 07/17/19 04:39 Plt Count 564 K/mm3 (140-440) H 07/17/19 04:39 Lymph % (Auto) 3.6 % (13.4-35.0) L 07/17/19 04:39 [place] % (Auto) 7.4 % (0.0-7.3) H 07/17/19 04:39 Eos % (Auto) 1.1 % (0.0-4.3) 07/17/19 04:39 Baso % (Auto) 0.4 % (0.0-1.8) 07/17/19 04:39 Lymph # 0.6 K/mm3 (1.2-5.4) L 07/17/19 04:39 [place] # 1.2 K/mm3 (0.0-0.8) H 07/17/19 04:39 Eos # 0.2 K/mm3 (0.0-0.4) 07/17/19 04:39 Baso # 0.1 K/mm3 (0.0-0.1) 07/17/19 04:39 Add Manual Diff Complete 07/15/19 05:18 Total Counted 100 07/15/19 05:18 Seg Neutrophils % 87.5 % (40.0-70.0) H 07/17/19 04:39 Seg Neuts % (Manual) 92.0 % (40.0-70.0) H 07/15/19 05:18 Band Neutrophils % 0 % 07/15/19 05:18 Lymphocytes % (Manual) 5.0 % (13.4-35.0) L 07/15/19 05:18 Reactive Lymphs % (Man) 0 % 07/15/19 05:18 Monocytes % (Manual) 3.0 % (0.0-7.3) 07/15/19 05:18 Eosinophils % (Manual) 0 % (0.0-4.3) 07/15/19 05:18 Basophils % (Manual) 0 % (0.0-1.8) 07/15/19 05:18 Metamyelocytes % 0 % 07/15/19 05:18 Myelocytes % 0 % 07/15/19 05:18 Promyelocytes % 0 % 07/15/19 05:18 Blast Cells % 0 % 07/15/19 05:18 Nucleated RBC % Not Reportable 07/15/19 05:18 Seg Neutrophils # 14.1 K/mm3 (1.8-7.7) H 07/17/19 04:39 Seg Neutrophils # Man 19.0 K/mm3 (1.8-7.7) H 07/15/19 05:18 Band Neutrophils # 0.0 K/mm3 07/15/19 05:18 Lymphocytes # (Manual) 1.0 K/mm3 (1.2-5.4) L 07/15/19 05:18 Abs React Lymphs (Man) 0.0 K/mm3 07/15/19 05:18 Monocytes # (Manual) 0.6 K/mm3 (0.0-0.8) 07/15/19 05:18 Eosinophils # (Manual) 0.0 K/mm3 (0.0-0.4) 07/15/19 05:18 Basophils # (Manual) 0.0 K/mm3 (0.0-0.1) 07/15/19 05:18 Metamyelocytes # 0.0 K/mm3 07/15/19 05:18 Myelocytes # 0.0 K/mm3 07/15/19 05:18 Promyelocytes # 0.0 K/mm3 07/15/19 05:18 Blast Cells # 0.0 K/mm3 07/15/19 05:18 WBC Morphology Not Reportable 07/15/19 05:18 Hypersegmented Neuts Not Reportable 07/15/19 05:18 Hyposegmented Neuts Not Reportable 07/15/19 05:18 Hypogranular Neuts Not Reportable 07/15/19 05:18 Smudge Cells Not Reportable 07/15/19 05:18 Toxic Granulation Not Reportable 07/15/19 05:18 Toxic Vacuolation Not Reportable 07/15/19 05:18 Dohle Bodies Not Reportable 07/15/19 05:18 Pelger-Huet Anomaly Not Reportable 07/15/19 05:18 Mendy Rods Not Reportable 07/15/19 05:18 Platelet Estimate Consistent w auto 07/15/19 05:18 Clumped Platelets Not Reportable 07/15/19 05:18 Plt Clumps, EDTA Not Reportable 07/15/19 05:18 Large Platelets Not Reportable 07/15/19 05:18 Giant Platelets Not Reportable 07/15/19 05:18 Platelet Satelliting Not Reportable 07/15/19 05:18 Plt Morphology Comment Not Reportable 07/15/19 05:18 RBC Morphology Not Reportable 07/15/19 05:18 Dimorphic RBCs Not Reportable 07/15/19 05:18 Polychromasia Not Reportable 07/15/19 05:18 Hypochromasia 2+ 07/15/19 05:18 Poikilocytosis Not Reportable 07/15/19 05:18 Anisocytosis 1+ 07/15/19 05:18 Microcytosis Few 07/15/19 05:18 Macrocytosis Not Reportable 07/15/19 05:18 Spherocytes Few 07/15/19 05:18 Pappenheimer Bodies Not Reportable 07/15/19 05:18 Sickle Cells Not Reportable 07/15/19 05:18 Target Cells Not Reportable 07/15/19 05:18 Tear Drop Cells Not Reportable 07/15/19 05:18 Ovalocytes Rare 07/15/19 05:18 Helmet Cells Not Reportable 07/15/19 05:18 Altman-Steptoe Bodies Not Reportable 07/15/19 05:18 [place] Rings Not Reportable 07/15/19 05:18 [place] Cells Not Reportable 07/15/19 05:18 Bite Cells Not Reportable 07/15/19 05:18 Crenated Cell Not Reportable 07/15/19 05:18 Elliptocytes Not Reportable 07/15/19 05:18 Acanthocytes (Spur) Not Reportable 07/15/19 05:18 Rouleaux Not Reportable 07/15/19 05:18 Hemoglobin C Crystals Not Reportable 07/15/19 05:18 Schistocytes Few 07/15/19 05:18 Malaria parasites Not Reportable 07/15/19 05:18 Jeevan Bodies Not Reportable 07/15/19 05:18 Hem Pathologist Commnt No 07/15/19 05:18 PT 16.0 Sec. (12.2-14.9) H 07/03/19 22:20 INR 1.26 (0.87-1.13) H 07/03/19 22:20 D-Dimer 1142.18 ng/mlDDU (0-234) H 07/08/19 00:45 ABG pH 7.231 pH Units (7.350-7.450) L 07/17/19 04:20 ABG pCO2 54.5 mm Hg 07/17/19 04:20 ABG pO2 95.3 mm Hg (80.0-90.0) H 07/17/19 04:20 ABG HCO3 22.4 mmol/L (20.0-26.0) 07/17/19 04:20 ABG O2 Saturation 96.5 % (95.0-99.0) 07/17/19 04:20 ABG O2 Content 10.7 (0.0-44) 07/17/19 04:20 ABG Base Excess -5.0 mmol/L (-2.0-3.0) L 07/17/19 04:20 ABG Hemoglobin 7.9 gm/dl (14.0-18.0) L 07/17/19 04:20 ABG Carboxyhemoglobin 1.3 % (0.0-5.0) 07/17/19 04:20 ABG Methemoglobin 0.5 % (0.0-1.5) 07/17/19 04:20 Oxyhemoglobin 94.8 % (95.0-99.0) L 07/17/19 04:20 FiO2 50 % 07/17/19 04:20 Sodium 139 mmol/L (137-145) 07/17/19 04:39 Potassium 4.8 mmol/L (3.6-5.0) 07/17/19 04:39 Chloride 107.8 mmol/L (98-107) H 07/17/19 04:39 Carbon Dioxide 21 mmol/L (22-30) L 07/17/19 04:39 Anion Gap 15 mmol/L 07/17/19 04:39 BUN 68 mg/dL (9-20) H 07/17/19 04:39 Creatinine 1.4 mg/dL (0.8-1.5) 07/17/19 04:39 Estimated GFR > 60 ml/min 07/17/19 04:39 BUN/Creatinine Ratio 49 % 07/17/19 04:39 Glucose 92 mg/dL (75-100) 07/17/19 04:39 POC Glucose 121 (70-105) H 07/17/19 05:28 Osmolality 268 Mosm/kg 07/05/19 04:00 Lactic Acid 3.30 mmol/L (0.7-2.0) H* 07/04/19 07:05 Uric Acid 7.2 mg/dL (3.5-7.6) 07/05/19 04:00 Calcium 8.6 mg/dL (8.4-10.2) 07/17/19 04:39 Phosphorus 3.60 mg/dL (2.5-4.5) 07/05/19 04:00 Magnesium 1.80 mg/dL (1.7-2.3) 07/11/19 05:14 Iron 9 ug/dL (49-181) L 07/04/19 07:05 TIBC 97 mcg/dL (250-450) L 07/04/19 07:05 Ferritin 839.0 ng/mL (13.0-400.0) H 07/08/19 00:45 Total Bilirubin 0.20 mg/dL (0.1-1.2) 07/04/19 07:05 AST 73 units/L (5-40) H 07/04/19 07:05 ALT 91 units/L (7-56) H 07/04/19 07:05 Alkaline Phosphatase 114 units/L (35-129) 07/04/19 07:05 Ammonia 35.0 umol/L (25-60) 07/03/19 23:58 Lactate Dehydrogenase 277 units/L (91-180) H 07/10/19 04:00 Troponin T 0.013 ng/mL (0.00-0.029) 07/04/19 07:05 C-Reactive Protein 15.10 mg/dL (0.00-1.30) H 07/10/19 04:00 Total Protein 5.5 g/dL (6.3-8.2) L 07/04/19 07:05 Albumin 2.0 g/dL (3.9-5) L 07/04/19 07:05 Albumin/Globulin Ratio 0.6 % 07/04/19 07:05 Triglycerides 33 mg/dL (2-149) 07/03/19 19:57 Cholesterol 47 mg/dL (50-199) L 07/03/19 19:57 LDL Cholesterol Direct 25 mg/dL (50-130) L 07/03/19 19:57 HDL Cholesterol 20 mg/dL (40-59) L 07/03/19 19:57 Cholesterol/HDL Ratio 2.35 % 07/03/19 19:57 Procalcitonin 1.25 ng/mL (<0.15) 07/10/19 04:00 TSH 2.170 mlU/mL (0.270-4.200) 07/03/19 22:20 Total Cortisol 28.0 mcg/dL () 07/05/19 10:11 Urine Color Naima (Yellow) 07/03/19 21:13 Urine Turbidity Cloudy (Clear) 07/03/19 21:13 Urine pH 5.0 (5.0-7.0) 07/03/19 21:13 Ur Specific [place] 1.016 (1.003-1.030) 07/03/19 21:13 Urine Protein 30 mg/dl mg/dL (Negative) 07/03/19 21:13 Urine Glucose (UA) Neg mg/dL (Negative) 07/03/19 21:13 Urine Ketones Neg mg/dL (Negative) 07/03/19 21:13 Urine Blood Neg (Negative) 07/03/19 21:13 Urine Nitrite Neg (Negative) 07/03/19 21:13 Urine Bilirubin Neg (Negative) 07/03/19 21:13 Urine Urobilinogen 2.0 mg/dL (<2.0) 07/03/19 21:13 Ur Leukocyte Esterase Neg (Negative) 07/03/19 21:13 Urine WBC (Auto) 12.0 /HPF (0.0-6.0) H 07/03/19 21:13 Urine RBC (Auto) 6.0 /HPF (0.0-6.0) 07/03/19 21:13 U Epithel Cells (Auto) 1.0 /HPF (0-13.0) 07/03/19 21:13 Urine Bacteria (Auto) 1+ /HPF (Negative) 07/03/19 21:13 Urine WBC Clumps Few /HPF 07/03/19 21:13 Urine Mucus Few /HPF 07/03/19 21:13 Urine Osmolality 293 Mosm/kg 07/05/19 08:15 Vancomycin Trough 23.2 ug/mL (5.0-20.0) H 07/05/19 17:54 Urine Opiates Screen Presumptive negative 07/03/19 21:13 Urine Methadone Screen Presumptive negative 07/03/19 21:13 Ur Barbiturates Screen Presumptive negative 07/03/19 21:13 Ur Phencyclidine Scrn Presumptive negative 07/03/19 21:13 Ur Amphetamines Screen Presumptive negative 07/03/19 21:13 U Benzodiazepines Scrn Presumptive negative 07/03/19 21:13 Urine Cocaine Screen Presumptive negative 07/03/19 21:13 U Marijuana (THC) Screen Presumptive negative 07/03/19 21:13 Drugs of Abuse Note Disclamer 07/03/19 21:13 Plasma/Serum Alcohol < 0.01 % (0-0.07) 07/03/19 23:58 Coronavirus (PCR) Positive (Negative) A 07/04/19 10:09 Blood Type B POSITIVE 07/12/19 08:49 Antibody Screen Negative 07/12/19 08:49 Crossmatch See Detail 07/12/19 08:49 Wright/IV: Voiding Method Indwelling Catheter IV Catheter Type [Left Upper Mid-line arm] IV Catheter Type [Right INT / Saline Lock Forearm] IV Catheter Type [Right Hand] INT / Saline Lock IV Catheter Type [Right CVL Femoral] IV Catheter Type [Left INT / Saline Lock External Jugular] Active Medications - Current Medications Current Medications: Generic Name Dose Route Start Last Admin Trade Name Freq PRN Reason Stop Dose Admin Acetaminophen 650 mg 07/04/19 04:24 Tylenol MT Q6H PRN Pain MILD(1-3)/Fever >100.5/MURO Acetaminophen 650 mg 07/10/19 04:00 07/15/19 20:35 Tylenol PO 650 mg Q6HR PRN Administration Pain, Mild (1-3) FEVER Lipase/Protease/Amylase 1 each 07/04/19 10:04 07/17/19 08:06 Mor Gilbert 10,500 Unit FEEDTUBE 1 each PRN PRN Administration For Clogged Feeding Tube Aspirin 81 mg 07/05/19 10:00 07/16/19 09:30 Baby Aspirin PO 81 mg QDAY TAMMIE Administration Dextrose 50 ml 07/04/19 06:54 D50w (25gm) Syringe IV Q30MIN PRN Hypoglycemia Protocol Docusate Sodium 100 mg 07/10/19 10:00 07/16/19 21:00 Colace PO 100 mg BID TAMMIE Administration Famotidine 20 mg 07/17/19 10:00 Pepcid PO BID TAMMIE Fentanyl 50 mcg 07/12/19 15:09 Sublimaze IV Q10MIN PRN ANALGESIA Folic Acid 1 mg 07/05/19 10:00 07/16/19 09:30 Folvite PO 1 mg QDAY TAMMIE Administration Hydrophilic Ointment 1 applic 07/03/19 19:56 07/05/19 17:42 Vaseline Lip Therapy TP 1 applic Q2HR PRN Administration Dry Lips Norepinephrine 4 mg in 250 mls @ 7.5 mls/hr 07/03/19 23:00 07/17/19 06:00 Levophed Drip 4 Mg/Ns 250 Ml IV 6 mcg/min TITR TAMMIE 22.5 mls/hr Titration Protocol 2 MCG/MIN Fentanyl Citrate 2,000 mcg in 100 mls @ 4.25 mls/hr 07/12/19 16:00 07/16/19 20:49 Fentanyl Drip Premix IV 1 mcg/kg/hr TITR TAMMIE 4.25 mls/hr Administration Protocol 1 MCG/KG/HR Sodium Chloride 1,000 mls @ 100 mls/hr 07/16/19 15:45 07/17/19 03:06 Nacl 0.9% 1000 Ml IV 07/18/19 01:44 100 mls/hr DIRECT TAMMIE Administration Insulin Human Lispro 0 unit 07/07/19 12:00 07/17/19 06:50 Humalog SUB-Q Not Given Q6HR TAMMIE Protocol Levetiracetam 750 mg 07/06/19 11:00 07/16/19 21:00 Keppra FEEDTUBE 750 mg Q12HR TAMMIE Administration Metoprolol Tartrate 5 mg 07/12/19 15:08 07/12/19 15:30 Metoprolol IV 5 mg Q6HR PRN Administration Tachyarrhythmias Metoprolol Tartrate 12.5 mg 07/12/19 16:00 07/16/19 21:01 Metoprolol PO 12.5 mg BID TAMMIE Administration Morphine Sulfate 2 mg 07/04/19 04:24 07/13/19 08:06 Morphine IV 2 mg Q4H PRN Administration Pain, Moderate (4-6) Multi-Ingred Cream/Lotion/Oil/Oint 1 applic 07/03/19 19:56 07/05/19 13:19 Artificial Tears Ophth Oint OU 1 applic Q4HR PRN Administration Dry Eye(s) Naloxone HCl 0.1 mg 07/04/19 04:24 Naloxone IV Q2MIN PRN Res Rate </= 8 or 02 SAT < 92% Scopolamine 1 each 07/10/19 11:00 07/16/19 10:05 Transderm-Scop TD 1 each Q3D TAMMIE Administration Simple Syrup 15 ml 07/04/19 10:04 07/10/19 21:56 Simple Syrup FEEDTUBE 15 ml PRN PRN Administration Hypoglycemia Simple Syrup 30 ml 07/04/19 10:04 Simple Syrup FEEDTUBE PRN PRN Hypoglycemia Sodium Bicarbonate 325 mg 07/04/19 10:04 Sodium Bicarbonate FEEDTUBE PRN PRN For Clogged Feeding Tube Sodium Chloride 10 ml 07/04/19 10:00 07/16/19 21:01 Sodium Chloride Flush Syringe 10 Ml IV 10 ml BID TAMMIE Administration Sodium Chloride 10 ml 07/04/19 04:24 Sodium Chloride Flush Syringe 10 Ml IV PRN PRN LINE FLUSH Sodium Hypochlorite 1 applic 07/10/19 14:00 07/16/19 21:04 Dakin's Half Strength TP 1 applicatio BID TAMMIE Administration Nutrition/Malnutrition Assess - Dietary Evaluation Nutrition/Malnutrition Findings: Nutrition Notes Start: 07/04/19 09:17 Freq: Status: Active Protocol: Document 07/16/19 09:31 LM (Rec: 07/16/19 09:38 LM [id number]) Nutrition Notes Initial or Follow up Reassessment Current Diagnosis Acute Kidney Injury,COPD, Decubitus(Pressure Ulcer), Diabetes,Hypertension Other Pertinent Diagnosis COVID-19 (+), pneu, seizures, schizophrenia, Buttock and R foot PU, Current Diet Vital AF 1.2 at 65ml/hr Labs/Tests K 5.9 BUN 73 Cr 2.0 Pertinent Medications Levophed Height 5 ft 11 in Weight 83.4 kg [place] Body Weight (kg) 78.18 BMI 25.6 Weight change and time frame Wt change noted Weight Status Overweight Subjective/Other Information Pt's K elevated. Will change to Nepro. Burn Absent Trauma Absent Current % PO Negligible Minimum of two criteria No physical signs of malnutrition #2 Nutrition Diagnosis Increased nutrient needs ( specify in comment below) Diagnosis Progress(for reassessment Continues documentation) #1 Nutrition Diagnosis Inadequate oral intake Diagnosis Progress(for reassessment Continues documentation) Is patient on ventilator? Yes Is Patient Ambulatory and/or Out of Bed No REE-([place]-confined to bed) [phone] Additional Notes Protein: 109-182g (1.2-2g/kg) Fluid: 1 ml/kcal or per MD Nutrition Intervention Change Diet Order: TF Nutrition Support: Change to Nepro 1.8 at 45ml/hr Flush 200ml q4h Kcal 1,944 Protein (gm) 87 Fluid (mL) 785 Goal #1 TF tolerance Goal #2 Meet at least 75% of energy and protein needs Anticipated Discharge Needs: unable to determine at this time Follow-Up By: 07/18/19 Additional Comments F/U for new TF/ tolerance, K, Na labs
--- NOTE | 2019-07-17 09:54 | XRay Report ---
ABDOMEN 3 VIEWS INDICATION: peg position. COMPARISON: None available. FINDINGS: Kitchen Supervisor x-ray shows PEG tube overlying left upper quadrant of abdomen. Large amount of solid stool seen throughout the colon characteristic for constipation. No bowel obstruction. Gastrografin was injecte d through the PEG tube which confirmed intraluminal placement within stomach. There is no extravasati on of contrast. Signer Name: Ashutosh Bourne MD Signed: 07/17/2019 9:49 AM Workstation Name: [facility]
[2019-07-17] MEDS: FOLIC ACID 1 MG TAB PO SCH (11:06)
[2019-07-17] MEDS: METOPROLOL TARTRATE 25 MG TAB PO SCH ×2 (11:06→21:45)
[2019-07-17] MEDS: levETIRAcetam 500 MG/5 ML ORAL LIQD FEEDTUBE SCH ×2 (11:08→21:44)
[2019-07-17] MEDS: FAMOTIDINE 20 MG TAB PO SCH ×2 (11:08→21:52)
[2019-07-17] MEDS: DOCUSATE SODIUM 100 MG/10 ML ORAL LIQD PO SCH ×2 (11:09→21:44)
[2019-07-17] MEDS: SODIUM HYPOCHLORITE, DAKIN'S 1/2 STRENGTH (0.25%) 473 ML TOPICAL SOLN TP SCH ×2 (11:14→21:44)
[2019-07-17] MEDS: ASPIRIN 81 MG TAB CHEW PO SCH (11:15)
--- NOTE | 2019-07-17 14:33 | Progress Note ---
Assessment and Plan Cultures: 07/03/2019 urine culture: No growth 07/03/2019 Tracheal aspirate: E.coli A/P: 69-year-old male with CVA, hypertension, dementia, schizophrenia, alcohol use disorder was admitted to the emergency room after being brought in by EMS with progressive shortness of breath and unresponsiveness. He was noted to have agonal breathing and a faint pulse requiring CPR. It seems patient was on hospice recently. #Shock, likely septic: Lactic acidosis. Remains off pressors. #Severe COVID-19 disease and pneumonia: Elevated markers. Completed Plaquenil. Completed Ceftriaxone for treatment E.coli in tracheal aspirate. #Acute respiratory failure: on mechanical ventilation. #Transaminitis: Likely from COVID-19, shock #Leucocytosis: ?reactive from above. Recs: continue supportive care for COVID-19 agree with DNR. Poor prognosis. It seems patient was on hospice recently Mekhi Barboza MD [facility] ([facility]) M: [phone] O: [phone] F: [phone] Subjective Date of service: 07/17/19 Principal diagnosis: Bilateral pneumonia, severe sepsis with septic shock, encephalopathy Interval history: Afebrile with an improving white count but is now 16. Objective - Exam Narrative Exam: Physical Exam (reviewed in chart due to PPE conservation) Constitutional: intubated, sedated, on the vent Head, Ears, Nose: normocephalic, atraumatic Eyes: limited due to PPE conservation strategy Neck: intubated Oral: intubated Cardiovascular: limited due to PPE conservation strategy Respiratory: limited due to PPE conservation strategy GI: limited due to PPE conservation strategy Musculoskeletal: limited due to PPE conservation strategy Skin: limited due to PPE conservation strategy Hem/Lymphatic: limited due to PPE conservation strategy Psych: no agitation Neurological: sedated, intubated, on the vent, exam limited - Constitutional Vitals: Vital Signs Temp Pulse Resp BP Pulse Ox 97.0 F L 110 H 18 116/72 100 07/17/19 12:00 07/17/19 13:00 07/17/19 13:00 07/17/19 13:00 07/17/19 13:00 Temperature -Last 24 Hours Temperature 97.0 F Temperature 96.6 F Temperature 98.9 F Temperature 99.9 F Temperature 99.2 F Temperature 98.3 F - Labs CBC & Chem 7: 07/17/19 04:39 07/17/19 04:39 Labs: Abnormal lab results 07/16/19 07/16/19 07/17/19 Range/Units 16:19 17:45 00:16 WBC (4.5-11.0) K/mm3 RBC (3.65-5.03) M/mm3 Hgb (11.8-15.2) gm/dl Hct (35.5-45.6) % MCHC (32-34) % RDW (13.2-15.2) % Plt Count (140-440) K/mm3 Lymph % (Auto) (13.4-35.0) % [place] % (Auto) (0.0-7.3) % Lymph # (1.2-5.4) K/mm3 [place] # (0.0-0.8) K/mm3 Seg Neutrophils % (40.0-70.0) % Seg Neutrophils # (1.8-7.7) K/mm3 ABG pH (7.350-7.450) pH Units ABG pO2 (80.0-90.0) mm Hg ABG Base Excess (-2.0-3.0) mmol/L ABG Hemoglobin (14.0-18.0) gm/dl Oxyhemoglobin (95.0-99.0) % Potassium 5.1 H (3.6-5.0) mmol/L Chloride (98-107) mmol/L Carbon Dioxide 20 L (22-30) mmol/L BUN 72 H (9-20) mg/dL Creatinine 1.7 H (0.8-1.5) mg/dL Glucose 128 H (75-100) mg/dL POC Glucose 181 H 164 H (70-105) 07/17/19 07/17/19 07/17/19 Range/Units 04:20 04:39 04:39 WBC 16.1 H (4.5-11.0) K/mm3 RBC 2.92 L (3.65-5.03) M/mm3 Hgb 8.0 L (11.8-15.2) gm/dl Hct 25.5 L (35.5-45.6) % MCHC 31 L (32-34) % RDW 19.7 H (13.2-15.2) % Plt Count 564 H (140-440) K/mm3 Lymph % (Auto) 3.6 L (13.4-35.0) % [place] % (Auto) 7.4 H (0.0-7.3) % Lymph # 0.6 L (1.2-5.4) K/mm3 [place] # 1.2 H (0.0-0.8) K/mm3 Seg Neutrophils % 87.5 H (40.0-70.0) % Seg Neutrophils # 14.1 H (1.8-7.7) K/mm3 ABG pH 7.231 L (7.350-7.450) pH Units ABG pO2 95.3 H (80.0-90.0) mm Hg ABG Base Excess -5.0 L (-2.0-3.0) mmol/L ABG Hemoglobin 7.9 L (14.0-18.0) gm/dl Oxyhemoglobin 94.8 L (95.0-99.0) % Potassium (3.6-5.0) mmol/L Chloride 107.8 H (98-107) mmol/L Carbon Dioxide 21 L (22-30) mmol/L BUN 68 H (9-20) mg/dL Creatinine (0.8-1.5) mg/dL Glucose (75-100) mg/dL POC Glucose (70-105) 07/17/19 07/17/19 Range/Units 05:28 12:11 WBC (4.5-11.0) K/mm3 RBC (3.65-5.03) M/mm3 Hgb (11.8-15.2) gm/dl Hct (35.5-45.6) % MCHC (32-34) % RDW (13.2-15.2) % Plt Count (140-440) K/mm3 Lymph % (Auto) (13.4-35.0) % [place] % (Auto) (0.0-7.3) % Lymph # (1.2-5.4) K/mm3 [place] # (0.0-0.8) K/mm3 Seg Neutrophils % (40.0-70.0) % Seg Neutrophils # (1.8-7.7) K/mm3 ABG pH (7.350-7.450) pH Units ABG pO2 (80.0-90.0) mm Hg ABG Base Excess (-2.0-3.0) mmol/L ABG Hemoglobin (14.0-18.0) gm/dl Oxyhemoglobin (95.0-99.0) % Potassium (3.6-5.0) mmol/L Chloride (98-107) mmol/L Carbon Dioxide (22-30) mmol/L BUN (9-20) mg/dL Creatinine (0.8-1.5) mg/dL Glucose (75-100) mg/dL POC Glucose 121 H 125 H (70-105)
--- NOTE | 2019-07-17 14:36 | Progress Note ---
Assessment and Plan Acute hypoxemic respiratory failure on MVS Severe sepsis with Shock. Bilateral Pneumonia. PUI coronavirus-19 infection. Acute possibly on chronic encephalopathy. Oropharyngeal dysphagia. Anemia. Decubitus ulcers Diabetes type 2. Hypertension. Leukocytosis. Anemia that is microcytic. Elevated serum transaminases. [id number] metabolic acidosis. Lactic acidosis. Severe protein-calorie malnutrition - increased set rate to 20/min - repeat ABG at 9pm tonight ands address - prn Levophed for target MAP > 65 mmHg - continue to wean supplemental oxygen for target O2 sat's > 90% acutely - Daily SAT's and SBT assessment as tolerated - VAP bundle addressed - continue lung protective strategies - continue bronchodilators with pulmonary hygiene per RT - wean per pulmonary driven protocols otherwise - continue fentanyl gtt for pain control / sedation - continue airborne and contact COVID-19 precautions - COVID-19 test positive - complete anti-infectives and de-escalate per ID recommendations - continue wound care per WCT - sedation prn for target RASS 0 to -1 - accuchecks with glycemic control per SSI (While critically ill target blood glucose of 140-180 mg/dL; avoid hypoglycemia) - to avoid benzodiazepine's, reduce the possibility of delirium - prn analgesia per CPOT score - Maintenance of sleep-wake cycle, avoid delirium - continue enteral nutritional support at goal rate as tolerated - G.I. & VTE prophylaxis - PT/OT/ROM exercises - continue mobility protocols for pressure ulcer prophylaxis - Monitor hemodynamics closely - continue other care per attending / other consultants - discharge planning ongoing concurrently .... Re-evaluate in am & prn CONDITION: CRITICAL PROGNOSIS: GUARDED CODE STATUS: FULL CODE The high probability of a clinically significant, sudden or life-threatening deterioration of the [respiratory & cardiovascular] system(s) required my full and direct attention, intervention and personal management. The aggregate critical care time was [31] minutes without overlap. Time includes spent on; [x] Data Review and interpretation [x] Patient assessment and monitoring of vital signs [x] Documentation [x] Medication orders and management Subjective Date of service: 07/17/19 Principal diagnosis: Bilateral pneumonia, severe sepsis with septic shock, encephalopathy Interval history: Patient is seen today for: Ac hypoxemic Resp failure on MVS; Severe sepsis with Shock; Ivan. Pneumonia; PUI coronavirus-19 infection. Seen and examined at bedside; 24hour events reviewed; nursing and respiratory care staff consulted; no adverse overnight events reported to me; resting in bed ; remains on MVS; remains with mixed acidosis; AMS is persistent; not tolerating SBT's Objective Vital Signs - 12hr 07/17/19 07/17/19 07/17/19 03:00 03:07 03:30 Temperature 98.9 F Pulse Rate 118 H 115 H Pulse Rate [ From Monitor] Respiratory 16 16 Rate Blood Pressure 101/57 110/65 O2 Sat by Pulse 99 100 Oximetry 07/17/19 07/17/19 07/17/19 04:00 04:25 04:30 Temperature Pulse Rate 115 H 115 H 117 H Pulse Rate [ 115 H From Monitor] Respiratory 16 16 Rate Blood Pressure 117/64 117/64 110/62 O2 Sat by Pulse 100 115 H 97 Oximetry 07/17/19 07/17/19 07/17/19 05:00 05:30 06:00 Temperature Pulse Rate 117 H 117 H 119 H Pulse Rate [ From Monitor] Respiratory 15 16 16 Rate Blood Pressure 121/67 123/73 124/70 O2 Sat by Pulse 98 99 100 Oximetry 07/17/19 07/17/19 07/17/19 06:30 07:00 07:30 Temperature Pulse Rate 117 H 115 H 115 H Pulse Rate [ From Monitor] Respiratory 12 12 18 Rate Blood Pressure 104/59 112/65 119/69 O2 Sat by Pulse 100 100 100 Oximetry 07/17/19 07/17/19 07/17/19 08:00 08:30 08:55 Temperature 96.6 F L Pulse Rate 114 H 115 H 113 H Pulse Rate [ 115 H From Monitor] Respiratory 16 18 Rate Blood Pressure 118/62 122/65 91/51 O2 Sat by Pulse 100 100 100 Oximetry 07/17/19 07/17/19 07/17/19 09:00 09:30 10:00 Temperature Pulse Rate 115 H 117 H 117 H Pulse Rate [ From Monitor] Respiratory 18 18 18 Rate Blood Pressure 117/69 122/71 125/71 O2 Sat by Pulse 100 100 100 Oximetry 07/17/19 07/17/19 07/17/19 10:30 11:00 11:30 Temperature Pulse Rate 114 H 111 H 115 H Pulse Rate [ From Monitor] Respiratory 18 20 18 Rate Blood Pressure 129/72 91/51 123/72 O2 Sat by Pulse 100 94 100 Oximetry 07/17/19 07/17/19 07/17/19 12:00 12:30 13:00 Temperature 97.0 F L Pulse Rate 111 H 112 H 110 H Pulse Rate [ 115 H From Monitor] Respiratory 18 18 18 Rate Blood Pressure 123/76 112/68 116/72 O2 Sat by Pulse 100 100 100 Oximetry Constitutional: appears uncomfortable, other (eelderly and chronically ill looking AAM, normocep[krystina;ic with mildly increased respiratory effort at rest) Eyes: non-icteric ENT: oropharynx moist, other (ETT 24 cm RUTH) Neck: supple, no lymphadenopathy, no JVD Effort: mildly labored Ascultation: Bilateral: diminished breath sounds, rhonchi Percussion: Bilateral: not dull Cardiovascular: regular rate and rhythm Gastrointestinal: normoactive bowel sounds, soft, non-tender, non-distended, other (+ PEG tube with mild TF leakage) Integumentary: decubitus ulcer Extremities: no cyanosis, no edema, pink and warm, pulses normal Neurologic: unable to assess Psychiatric: other (Unable to assess re: AMS) CBC and BMP: 07/18/19 05:22 07/18/19 05:22 ABG, PT/INR, D-dimer: ABG ABG pH 7.231 pH Units (7.350-7.450) L 07/17/19 04:20 ABG pCO2 54.5 mm Hg 07/17/19 04:20 ABG pO2 95.3 mm Hg (80.0-90.0) H 07/17/19 04:20 ABG O2 Saturation 96.5 % (95.0-99.0) 07/17/19 04:20 PT/INR, D-dimer PT 16.0 Sec. (12.2-14.9) H 07/03/19 22:20 INR 1.26 (0.87-1.13) H 07/03/19 22:20 D-Dimer 1142.18 ng/mlDDU (0-234) H 07/08/19 00:45 Abnormal lab findings: Abnormal Labs 07/03/19 07/03/19 07/03/19 19:57 21:10 21:13 WBC RBC Hgb Hct MCV MCH MCHC RDW Plt Count Lymph % (Auto) [place] % (Auto) Lymph # [place] # Seg Neutrophils % Seg Neuts % (Manual) Lymphocytes % (Manual) Seg Neutrophils # Seg Neutrophils # Man Lymphocytes # (Manual) PT INR D-Dimer ABG pH 7.238 L ABG pO2 210.8 H ABG HCO3 15.4 L ABG O2 Saturation 99.2 H ABG Base Excess -11.1 L ABG Hemoglobin 8.0 L Oxyhemoglobin Sodium 124 L Potassium Chloride 92.9 L Carbon Dioxide 10 L BUN 23 H Creatinine 0.5 L Glucose 118 H POC Glucose Lactic Acid Calcium 7.0 L Magnesium Iron TIBC Ferritin AST 70 H ALT 88 H Lactate Dehydrogenase Troponin T 0.032 H C-Reactive Protein Total Protein 5.0 L Albumin 1.8 L Cholesterol 47 L LDL Cholesterol Direct 25 L HDL Cholesterol 20 L Urine WBC (Auto) 12.0 H Vancomycin Trough Coronavirus (PCR) Crossmatch 07/03/19 07/03/19 07/03/19 22:20 22:20 22:20 WBC 30.5 H RBC 2.96 L Hgb 7.7 L Hct 23.9 L MCV 81 L MCH 26 L MCHC RDW 18.6 H Plt Count 459 H Lymph % (Auto) [place] % (Auto) Lymph # [place] # Seg Neutrophils % Seg Neuts % (Manual) 93.0 H Lymphocytes % (Manual) 0.5 L Seg Neutrophils # Seg Neutrophils # Man 28.4 H Lymphocytes # (Manual) 0.2 L PT 16.0 H INR 1.26 H D-Dimer ABG pH ABG pO2 ABG HCO3 ABG O2 Saturation ABG Base Excess ABG Hemoglobin Oxyhemoglobin Sodium Potassium Chloride Carbon Dioxide BUN Creatinine Glucose POC Glucose Lactic Acid 6.90 H* Calcium Magnesium Iron TIBC Ferritin AST ALT Lactate Dehydrogenase Troponin T C-Reactive Protein Total Protein Albumin Cholesterol LDL Cholesterol Direct HDL Cholesterol Urine WBC (Auto) Vancomycin Trough Coronavirus (PCR) Crossmatch 07/03/19 07/04/19 07/04/19 23:58 05:15 07:05 WBC 17.1 H RBC 3.22 L Hgb 8.3 L Hct 25.4 L MCV 79 L MCH 26 L MCHC RDW 18.6 H Plt Count Lymph % (Auto) [place] % (Auto) Lymph # [place] # Seg Neutrophils % Seg Neuts % (Manual) 74.0 H Lymphocytes % (Manual) 0 L Seg Neutrophils # Seg Neutrophils # Man 12.7 H Lymphocytes # (Manual) 0.0 L PT INR D-Dimer ABG pH 7.310 L ABG pO2 73.2 L ABG HCO3 17.8 L ABG O2 Saturation 93.8 L ABG Base Excess -7.7 L ABG Hemoglobin 9.6 L Oxyhemoglobin 92.3 L Sodium Potassium Chloride Carbon Dioxide BUN Creatinine Glucose POC Glucose Lactic Acid 7.10 H* Calcium Magnesium Iron TIBC Ferritin AST ALT Lactate Dehydrogenase Troponin T C-Reactive Protein Total Protein Albumin Cholesterol LDL Cholesterol Direct HDL Cholesterol Urine WBC (Auto) Vancomycin Trough Coronavirus (PCR) Crossmatch 07/04/19 07/04/19 07/04/19 07:05 07:05 07:05 WBC RBC Hgb Hct MCV MCH MCHC RDW Plt Count Lymph % (Auto) [place] % (Auto) Lymph # [place] # Seg Neutrophils % Seg Neuts % (Manual) Lymphocytes % (Manual) Seg Neutrophils # Seg Neutrophils # Man Lymphocytes # (Manual) PT INR D-Dimer ABG pH ABG pO2 ABG HCO3 ABG O2 Saturation ABG Base Excess ABG Hemoglobin Oxyhemoglobin Sodium 120 L Potassium 5.1 H Chloride 90.0 L Carbon Dioxide 14 L BUN 26 H Creatinine 0.5 L Glucose POC Glucose Lactic Acid 3.30 H* Calcium 8.0 L Magnesium Iron 9 L TIBC 97 L Ferritin AST 73 H ALT 91 H Lactate Dehydrogenase Troponin T C-Reactive Protein Total Protein 5.5 L Albumin 2.0 L Cholesterol LDL Cholesterol Direct HDL Cholesterol Urine WBC (Auto) Vancomycin Trough Coronavirus (PCR) Crossmatch 07/04/19 07/04/19 07/04/19 09:39 09:39 09:39 WBC RBC Hgb Hct MCV MCH MCHC RDW Plt Count Lymph % (Auto) [place] % (Auto) Lymph # [place] # Seg Neutrophils % Seg Neuts % (Manual) Lymphocytes % (Manual) Seg Neutrophils # Seg Neutrophils # Man Lymphocytes # (Manual) PT INR D-Dimer 1419.14 H ABG pH ABG pO2 ABG HCO3 ABG O2 Saturation ABG Base Excess ABG Hemoglobin Oxyhemoglobin Sodium Potassium Chloride Carbon Dioxide BUN Creatinine Glucose POC Glucose Lactic Acid Calcium Magnesium Iron TIBC Ferritin 1719.0 H AST ALT Lactate Dehydrogenase 234 H Troponin T C-Reactive Protein 15.50 H Total Protein Albumin Cholesterol LDL Cholesterol Direct HDL Cholesterol Urine WBC (Auto) Vancomycin Trough Coronavirus (PCR) Crossmatch 07/04/19 07/04/19 07/04/19 10:09 18:08 18:28 WBC RBC Hgb Hct MCV MCH MCHC RDW Plt Count Lymph % (Auto) [place] % (Auto) Lymph # [place] # Seg Neutrophils % Seg Neuts % (Manual) Lymphocytes % (Manual) Seg Neutrophils # Seg Neutrophils # Man Lymphocytes # (Manual) PT INR D-Dimer ABG pH ABG pO2 ABG HCO3 ABG O2 Saturation ABG Base Excess ABG Hemoglobin Oxyhemoglobin Sodium 117 L* Potassium 5.6 H Chloride 90.3 L Carbon Dioxide 16 L BUN 28 H Creatinine 0.5 L Glucose 58 L POC Glucose 65 L Lactic Acid Calcium 8.2 L Magnesium Iron TIBC Ferritin AST ALT Lactate Dehydrogenase Troponin T C-Reactive Protein Total Protein Albumin Cholesterol LDL Cholesterol Direct HDL Cholesterol Urine WBC (Auto) Vancomycin Trough Coronavirus (PCR) Positive A Crossmatch 07/04/19 07/04/19 07/04/19 23:45 Unknown Unknown WBC RBC Hgb Hct MCV MCH MCHC RDW Plt Count Lymph % (Auto) [place] % (Auto) Lymph # [place] # Seg Neutrophils % Seg Neuts % (Manual) Lymphocytes % (Manual) Seg Neutrophils # Seg Neutrophils # Man Lymphocytes # (Manual) PT INR D-Dimer 759.77 H ABG pH ABG pO2 ABG HCO3 ABG O2 Saturation ABG Base Excess ABG Hemoglobin Oxyhemoglobin Sodium 122 L Potassium Chloride 93.0 L Carbon Dioxide 19 L BUN 27 H Creatinine 0.5 L Glucose POC Glucose Lactic Acid Calcium 8.3 L Magnesium Iron TIBC Ferritin 1301.0 H AST ALT Lactate Dehydrogenase Troponin T C-Reactive Protein Total Protein Albumin Cholesterol LDL Cholesterol Direct HDL Cholesterol Urine WBC (Auto) Vancomycin Trough Coronavirus (PCR) Crossmatch 07/04/19 07/05/19 07/05/19 Unknown 03:20 04:00 WBC RBC Hgb Hct MCV MCH MCHC RDW Plt Count Lymph % (Auto) [place] % (Auto) Lymph # [place] # Seg Neutrophils % Seg Neuts % (Manual) Lymphocytes % (Manual) Seg Neutrophils # Seg Neutrophils # Man Lymphocytes # (Manual) PT INR D-Dimer ABG pH ABG pO2 60.6 L ABG HCO3 ABG O2 Saturation 93.5 L ABG Base Excess -2.4 L ABG Hemoglobin 6.9 L Oxyhemoglobin 92.0 L Sodium 125 L Potassium Chloride 92.6 L Carbon Dioxide 19 L BUN 24 H Creatinine 0.6 L Glucose POC Glucose Lactic Acid Calcium 8.2 L Magnesium 1.40 L Iron TIBC Ferritin AST ALT Lactate Dehydrogenase 242 H Troponin T C-Reactive Protein 16.70 H Total Protein Albumin Cholesterol LDL Cholesterol Direct HDL Cholesterol Urine WBC (Auto) Vancomycin Trough Coronavirus (PCR) Crossmatch 07/05/19 07/05/19 07/05/19 10:11 16:15 17:54 WBC 46.4 H* RBC 2.77 L Hgb 7.2 L Hct 21.9 L MCV 79 L MCH 26 L MCHC RDW 19.0 H Plt Count Lymph % (Auto) [place] % (Auto) Lymph # [place] # Seg Neutrophils % Seg Neuts % (Manual) 82.0 H Lymphocytes % (Manual) 1.0 L Seg Neutrophils # Seg Neutrophils # Man 38.0 H Lymphocytes # (Manual) 0.5 L PT INR D-Dimer ABG pH ABG pO2 ABG HCO3 ABG O2 Saturation ABG Base Excess ABG Hemoglobin Oxyhemoglobin Sodium Potassium Chloride Carbon Dioxide BUN Creatinine Glucose POC Glucose 69 L Lactic Acid Calcium Magnesium Iron TIBC Ferritin AST ALT Lactate Dehydrogenase Troponin T C-Reactive Protein Total Protein Albumin Cholesterol LDL Cholesterol Direct HDL Cholesterol Urine WBC (Auto) Vancomycin Trough 23.2 H Coronavirus (PCR) Crossmatch 07/05/19 07/06/19 07/06/19 19:58 00:27 00:27 WBC RBC Hgb Hct MCV MCH MCHC RDW Plt Count Lymph % (Auto) [place] % (Auto) Lymph # [place] # Seg Neutrophils % Seg Neuts % (Manual) Lymphocytes % (Manual) Seg Neutrophils # Seg Neutrophils # Man Lymphocytes # (Manual) PT INR D-Dimer 1333.22 H ABG pH ABG pO2 ABG HCO3 ABG O2 Saturation ABG Base Excess ABG Hemoglobin Oxyhemoglobin Sodium 127 L Potassium Chloride Carbon Dioxide BUN Creatinine Glucose POC Glucose Lactic Acid Calcium Magnesium Iron TIBC Ferritin 977.1 H AST ALT Lactate Dehydrogenase Troponin T C-Reactive Protein Total Protein Albumin Cholesterol LDL Cholesterol Direct HDL Cholesterol Urine WBC (Auto) Vancomycin Trough Coronavirus (PCR) Crossmatch 07/06/19 07/06/19 07/06/19 00:27 02:00 02:56 WBC RBC Hgb Hct MCV MCH MCHC RDW Plt Count Lymph % (Auto) [place] % (Auto) Lymph # [place] # Seg Neutrophils % Seg Neuts % (Manual) Lymphocytes % (Manual) Seg Neutrophils # Seg Neutrophils # Man Lymphocytes # (Manual) PT INR D-Dimer ABG pH ABG pO2 70.3 L ABG HCO3 ABG O2 Saturation 94.8 L ABG Base Excess ABG Hemoglobin 8.0 L Oxyhemoglobin 93.2 L Sodium Potassium Chloride Carbon Dioxide BUN Creatinine Glucose POC Glucose 117 H Lactic Acid Calcium Magnesium Iron TIBC Ferritin AST ALT Lactate Dehydrogenase 236 H Troponin T C-Reactive Protein 22.90 H Total Protein Albumin Cholesterol LDL Cholesterol Direct HDL Cholesterol Urine WBC (Auto) Vancomycin Trough Coronavirus (PCR) Crossmatch 07/06/19 07/06/19 07/06/19 03:49 03:49 07:40 WBC 38.8 H RBC 2.51 L Hgb 6.7 L Hct 19.9 L* MCV 79 L MCH 27 L MCHC RDW 19.2 H Plt Count Lymph % (Auto) [place] % (Auto) Lymph # [place] # Seg Neutrophils % Seg Neuts % (Manual) 90.5 H Lymphocytes % (Manual) 1.0 L Seg Neutrophils # Seg Neutrophils # Man 35.1 H Lymphocytes # (Manual) 0.4 L PT INR D-Dimer ABG pH ABG pO2 ABG HCO3 ABG O2 Saturation ABG Base Excess ABG Hemoglobin Oxyhemoglobin Sodium 131 L Potassium Chloride 96.9 L Carbon Dioxide 18 L BUN 23 H Creatinine 0.5 L Glucose POC Glucose Lactic Acid Calcium 8.0 L Magnesium Iron TIBC Ferritin AST ALT Lactate Dehydrogenase Troponin T C-Reactive Protein Total Protein Albumin Cholesterol LDL Cholesterol Direct HDL Cholesterol Urine WBC (Auto) Vancomycin Trough Coronavirus (PCR) Crossmatch See Detail 07/06/19 07/06/19 07/06/19 12:38 14:39 20:00 WBC RBC Hgb Hct MCV MCH MCHC RDW Plt Count Lymph % (Auto) [place] % (Auto) Lymph # [place] # Seg Neutrophils % Seg Neuts % (Manual) Lymphocytes % (Manual) Seg Neutrophils # Seg Neutrophils # Man Lymphocytes # (Manual) PT INR D-Dimer ABG pH ABG pO2 ABG HCO3 ABG O2 Saturation ABG Base Excess ABG Hemoglobin Oxyhemoglobin Sodium Potassium Chloride Carbon Dioxide BUN Creatinine Glucose POC Glucose 112 H 111 H 140 H Lactic Acid Calcium Magnesium Iron TIBC Ferritin AST ALT Lactate Dehydrogenase Troponin T C-Reactive Protein Total Protein Albumin Cholesterol LDL Cholesterol Direct HDL Cholesterol Urine WBC (Auto) Vancomycin Trough Coronavirus (PCR) Crossmatch 07/06/19 07/06/19 07/07/19 22:43 22:56 02:20 WBC RBC Hgb 7.9 L Hct 23.1 L MCV MCH MCHC RDW Plt Count Lymph % (Auto) [place] % (Auto) Lymph # [place] # Seg Neutrophils % Seg Neuts % (Manual) Lymphocytes % (Manual) Seg Neutrophils # Seg Neutrophils # Man Lymphocytes # (Manual) PT INR D-Dimer ABG pH ABG pO2 ABG HCO3 ABG O2 Saturation ABG Base Excess ABG Hemoglobin Oxyhemoglobin Sodium Potassium Chloride Carbon Dioxide BUN Creatinine Glucose POC Glucose 122 H 149 H Lactic Acid Calcium Magnesium Iron TIBC Ferritin AST ALT Lactate Dehydrogenase Troponin T C-Reactive Protein Total Protein Albumin Cholesterol LDL Cholesterol Direct HDL Cholesterol Urine WBC (Auto) Vancomycin Trough Coronavirus (PCR) Crossmatch 07/07/19 07/07/19 07/07/19 04:35 05:27 05:34 WBC 23.1 H RBC 3.00 L Hgb 8.1 L Hct 24.2 L MCV 81 L MCH 27 L MCHC RDW 20.6 H Plt Count Lymph % (Auto) [place] % (Auto) Lymph # [place] # Seg Neutrophils % Seg Neuts % (Manual) 90.0 H Lymphocytes % (Manual) 2.0 L Seg Neutrophils # Seg Neutrophils # Man 20.8 H Lymphocytes # (Manual) 0.5 L PT INR D-Dimer ABG pH ABG pO2 65.8 L ABG HCO3 ABG O2 Saturation 92.2 L ABG Base Excess ABG Hemoglobin 8.3 L Oxyhemoglobin 90.6 L Sodium Potassium Chloride Carbon Dioxide BUN Creatinine Glucose POC Glucose 132 H Lactic Acid Calcium Magnesium Iron TIBC Ferritin AST ALT Lactate Dehydrogenase Troponin T C-Reactive Protein Total Protein Albumin Cholesterol LDL Cholesterol Direct HDL Cholesterol Urine WBC (Auto) Vancomycin Trough Coronavirus (PCR) Crossmatch 07/07/19 07/07/19 07/07/19 05:34 11:50 15:58 WBC RBC Hgb 8.1 L Hct 24.2 L MCV MCH MCHC RDW Plt Count Lymph % (Auto) [place] % (Auto) Lymph # [place] # Seg Neutrophils % Seg Neuts % (Manual) Lymphocytes % (Manual) Seg Neutrophils # Seg Neutrophils # Man Lymphocytes # (Manual) PT INR D-Dimer ABG pH ABG pO2 ABG HCO3 ABG O2 Saturation ABG Base Excess ABG Hemoglobin Oxyhemoglobin Sodium 135 L Potassium 3.3 L Chloride Carbon Dioxide 20 L BUN 27 H Creatinine 0.6 L Glucose 121 H POC Glucose 123 H Lactic Acid Calcium 8.0 L Magnesium Iron TIBC Ferritin AST ALT Lactate Dehydrogenase Troponin T C-Reactive Protein Total Protein Albumin Cholesterol LDL Cholesterol Direct HDL Cholesterol Urine WBC (Auto) Vancomycin Trough Coronavirus (PCR) Crossmatch 07/07/19 07/07/19 07/07/19 17:42 22:00 23:53 WBC RBC Hgb 8.0 L Hct 23.4 L MCV MCH MCHC RDW Plt Count Lymph % (Auto) [place] % (Auto) Lymph # [place] # Seg Neutrophils % Seg Neuts % (Manual) Lymphocytes % (Manual) Seg Neutrophils # Seg Neutrophils # Man Lymphocytes # (Manual) PT INR D-Dimer ABG pH ABG pO2 ABG HCO3 ABG O2 Saturation ABG Base Excess ABG Hemoglobin Oxyhemoglobin Sodium Potassium Chloride Carbon Dioxide BUN Creatinine Glucose POC Glucose 107 H 117 H Lactic Acid Calcium Magnesium Iron TIBC Ferritin AST ALT Lactate Dehydrogenase Troponin T C-Reactive Protein Total Protein Albumin Cholesterol LDL Cholesterol Direct HDL Cholesterol Urine WBC (Auto) Vancomycin Trough Coronavirus (PCR) Crossmatch 07/08/19 07/08/19 07/08/19 00:45 00:45 00:45 WBC RBC Hgb Hct MCV MCH MCHC RDW Plt Count Lymph % (Auto) [place] % (Auto) Lymph # [place] # Seg Neutrophils % Seg Neuts % (Manual) Lymphocytes % (Manual) Seg Neutrophils # Seg Neutrophils # Man Lymphocytes # (Manual) PT INR D-Dimer 1142.18 H ABG pH ABG pO2 ABG HCO3 ABG O2 Saturation ABG Base Excess ABG Hemoglobin Oxyhemoglobin Sodium Potassium Chloride Carbon Dioxide BUN Creatinine Glucose POC Glucose Lactic Acid Calcium Magnesium Iron TIBC Ferritin 839.0 H AST ALT Lactate Dehydrogenase 253 H Troponin T C-Reactive Protein 18.90 H Total Protein Albumin Cholesterol LDL Cholesterol Direct HDL Cholesterol Urine WBC (Auto) Vancomycin Trough Coronavirus (PCR) Crossmatch 07/08/19 07/08/19 07/08/19 04:30 05:11 12:02 WBC RBC Hgb Hct MCV MCH MCHC RDW Plt Count Lymph % (Auto) [place] % (Auto) Lymph # [place] # Seg Neutrophils % Seg Neuts % (Manual) Lymphocytes % (Manual) Seg Neutrophils # Seg Neutrophils # Man Lymphocytes # (Manual) PT INR D-Dimer ABG pH ABG pO2 66.0 L ABG HCO3 ABG O2 Saturation 92.3 L ABG Base Excess ABG Hemoglobin 7.7 L Oxyhemoglobin 90.7 L Sodium Potassium Chloride Carbon Dioxide BUN Creatinine Glucose POC Glucose 108 H 153 H Lactic Acid Calcium Magnesium Iron TIBC Ferritin AST ALT Lactate Dehydrogenase Troponin T C-Reactive Protein Total Protein Albumin Cholesterol LDL Cholesterol Direct HDL Cholesterol Urine WBC (Auto) Vancomycin Trough Coronavirus (PCR) Crossmatch 07/08/19 07/08/19 07/08/19 16:15 18:22 23:35 WBC RBC Hgb Hct MCV MCH MCHC RDW Plt Count Lymph % (Auto) [place] % (Auto) Lymph # [place] # Seg Neutrophils % Seg Neuts % (Manual) Lymphocytes % (Manual) Seg Neutrophils # Seg Neutrophils # Man Lymphocytes # (Manual) PT INR D-Dimer ABG pH ABG pO2 ABG HCO3 ABG O2 Saturation ABG Base Excess ABG Hemoglobin Oxyhemoglobin Sodium 134 L Potassium 3.3 L Chloride Carbon Dioxide 21 L BUN 27 H Creatinine 0.6 L Glucose 146 H POC Glucose 134 H 133 H Lactic Acid Calcium Magnesium Iron TIBC Ferritin AST ALT Lactate Dehydrogenase Troponin T C-Reactive Protein Total Protein Albumin Cholesterol LDL Cholesterol Direct HDL Cholesterol Urine WBC (Auto) Vancomycin Trough Coronavirus (PCR) Crossmatch 07/09/19 07/09/19 07/09/19 04:30 04:30 05:00 WBC 18.9 H RBC 2.77 L Hgb 7.4 L Hct 22.8 L MCV 82 L MCH 27 L MCHC RDW 20.9 H Plt Count 130 L Lymph % (Auto) [place] % (Auto) Lymph # [place] # Seg Neutrophils % Seg Neuts % (Manual) 84.0 H Lymphocytes % (Manual) 0 L Seg Neutrophils # Seg Neutrophils # Man 15.9 H Lymphocytes # (Manual) 0.0 L PT INR D-Dimer ABG pH ABG pO2 ABG HCO3 ABG O2 Saturation ABG Base Excess ABG Hemoglobin Oxyhemoglobin Sodium Potassium 3.1 L Chloride Carbon Dioxide BUN 26 H Creatinine 0.5 L Glucose 125 H POC Glucose 155 H Lactic Acid Calcium Magnesium Iron TIBC Ferritin AST ALT Lactate Dehydrogenase Troponin T C-Reactive Protein Total Protein Albumin Cholesterol LDL Cholesterol Direct HDL Cholesterol Urine WBC (Auto) Vancomycin Trough Coronavirus (PCR) Crossmatch 07/09/19 07/09/19 07/09/19 05:55 12:22 17:50 WBC RBC Hgb Hct MCV MCH MCHC RDW Plt Count Lymph % (Auto) [place] % (Auto) Lymph # [place] # Seg Neutrophils % Seg Neuts % (Manual) Lymphocytes % (Manual) Seg Neutrophils # Seg Neutrophils # Man Lymphocytes # (Manual) PT INR D-Dimer ABG pH ABG pO2 62.8 L ABG HCO3 ABG O2 Saturation ABG Base Excess ABG Hemoglobin 6.1 L Oxyhemoglobin 93.9 L Sodium Potassium Chloride Carbon Dioxide BUN Creatinine Glucose POC Glucose 115 H 133 H Lactic Acid Calcium Magnesium Iron TIBC Ferritin AST ALT Lactate Dehydrogenase Troponin T C-Reactive Protein Total Protein Albumin Cholesterol LDL Cholesterol Direct HDL Cholesterol Urine WBC (Auto) Vancomycin Trough Coronavirus (PCR) Crossmatch 07/10/19 07/10/19 07/10/19 00:38 04:00 04:00 WBC RBC Hgb Hct MCV MCH MCHC RDW Plt Count Lymph % (Auto) [place] % (Auto) Lymph # [place] # Seg Neutrophils % Seg Neuts % (Manual) Lymphocytes % (Manual) Seg Neutrophils # Seg Neutrophils # Man Lymphocytes # (Manual) PT INR D-Dimer ABG pH ABG pO2 ABG HCO3 ABG O2 Saturation ABG Base Excess ABG Hemoglobin Oxyhemoglobin Sodium Potassium Chloride 107.9 H Carbon Dioxide BUN 26 H Creatinine 0.4 L Glucose 137 H POC Glucose 122 H Lactic Acid Calcium Magnesium 1.50 L Iron TIBC Ferritin AST ALT Lactate Dehydrogenase 277 H Troponin T C-Reactive Protein 15.10 H Total Protein Albumin Cholesterol LDL Cholesterol Direct HDL Cholesterol Urine WBC (Auto) Vancomycin Trough Coronavirus (PCR) Crossmatch 07/10/19 07/10/19 07/10/19 04:07 05:21 17:25 WBC RBC Hgb Hct MCV MCH MCHC RDW Plt Count Lymph % (Auto) [place] % (Auto) Lymph # [place] # Seg Neutrophils % Seg Neuts % (Manual) Lymphocytes % (Manual) Seg Neutrophils # Seg Neutrophils # Man Lymphocytes # (Manual) PT INR D-Dimer ABG pH ABG pO2 65.6 L ABG HCO3 26.3 H ABG O2 Saturation ABG Base Excess ABG Hemoglobin 6.7 L Oxyhemoglobin Sodium Potassium Chloride Carbon Dioxide BUN Creatinine Glucose POC Glucose 144 H 113 H Lactic Acid Calcium Magnesium Iron TIBC Ferritin AST ALT Lactate Dehydrogenase Troponin T C-Reactive Protein Total Protein Albumin Cholesterol LDL Cholesterol Direct HDL Cholesterol Urine WBC (Auto) Vancomycin Trough Coronavirus (PCR) Crossmatch 07/11/19 07/11/19 07/11/19 00:07 05:14 05:25 WBC RBC Hgb Hct MCV MCH MCHC RDW Plt Count Lymph % (Auto) [place] % (Auto) Lymph # [place] # Seg Neutrophils % Seg Neuts % (Manual) Lymphocytes % (Manual) Seg Neutrophils # Seg Neutrophils # Man Lymphocytes # (Manual) PT INR D-Dimer ABG pH ABG pO2 ABG HCO3 ABG O2 Saturation ABG Base Excess ABG Hemoglobin 5.8 L Oxyhemoglobin Sodium Potassium Chloride 108.0 H Carbon Dioxide BUN 26 H Creatinine 0.4 L Glucose 110 H POC Glucose 121 H Lactic Acid Calcium Magnesium Iron TIBC Ferritin AST ALT Lactate Dehydrogenase Troponin T C-Reactive Protein Total Protein Albumin Cholesterol LDL Cholesterol Direct HDL Cholesterol Urine WBC (Auto) Vancomycin Trough Coronavirus (PCR) Crossmatch 07/11/19 07/11/19 07/11/19 12:27 18:00 23:42 WBC RBC Hgb Hct MCV MCH MCHC RDW Plt Count Lymph % (Auto) Douglas % (Auto) Lymph # Douglas # Seg Neutrophils % Seg Neuts % (Manual) Lymphocytes % (Manual) Seg Neutrophils # Seg Neutrophils # Man Lymphocytes # (Manual) PT INR D-Dimer ABG pH ABG pO2 ABG HCO3 ABG O2 Saturation ABG Base Excess ABG Hemoglobin Oxyhemoglobin Sodium Potassium Chloride Carbon Dioxide BUN Creatinine Glucose POC Glucose 158 H 141 H 142 H Lactic Acid Calcium Magnesium Iron TIBC Ferritin AST ALT Lactate Dehydrogenase Troponin T C-Reactive Protein Total Protein Albumin Cholesterol LDL Cholesterol Direct HDL Cholesterol Urine WBC (Auto) Vancomycin Trough Coronavirus (PCR) Crossmatch 07/12/19 07/12/19 07/12/19 04:46 04:46 05:23 WBC 23.6 H RBC 2.51 L Hgb 6.7 L Hct 20.8 L MCV 83 L MCH 27 L MCHC RDW 20.3 H Plt Count Lymph % (Auto) Douglas % (Auto) Lymph # Douglas # Seg Neutrophils % Seg Neuts % (Manual) 94.0 H Lymphocytes % (Manual) 4.0 L Seg Neutrophils # Seg Neutrophils # Man 22.2 H Lymphocytes # (Manual) 0.9 L PT INR D-Dimer ABG pH ABG pO2 ABG HCO3 ABG O2 Saturation ABG Base Excess ABG Hemoglobin Oxyhemoglobin Sodium Potassium Chloride 107.1 H Carbon Dioxide BUN 25 H Creatinine 0.4 L Glucose 122 H POC Glucose 118 H Lactic Acid Calcium Magnesium Iron TIBC Ferritin AST ALT Lactate Dehydrogenase Troponin T C-Reactive Protein Total Protein Albumin Cholesterol LDL Cholesterol Direct HDL Cholesterol Urine WBC (Auto) Vancomycin Trough Coronavirus (PCR) Crossmatch 07/12/19 07/12/19 07/12/19 08:49 11:36 18:15 WBC RBC Hgb Hct MCV MCH MCHC RDW Plt Count Lymph % (Auto) Douglas % (Auto) Lymph # Douglas # Seg Neutrophils % Seg Neuts % (Manual) Lymphocytes % (Manual) Seg Neutrophils # Seg Neutrophils # Man Lymphocytes # (Manual) PT INR D-Dimer ABG pH ABG pO2 ABG HCO3 ABG O2 Saturation ABG Base Excess ABG Hemoglobin Oxyhemoglobin Sodium Potassium Chloride Carbon Dioxide BUN Creatinine Glucose POC Glucose 124 H 110 H Lactic Acid Calcium Magnesium Iron TIBC Ferritin AST ALT Lactate Dehydrogenase Troponin T C-Reactive Protein Total Protein Albumin Cholesterol LDL Cholesterol Direct HDL Cholesterol Urine WBC (Auto) Vancomycin Trough Coronavirus (PCR) Crossmatch See Detail 07/12/19 07/13/19 07/13/19 23:16 05:26 06:50 WBC 23.9 H RBC 2.58 L Hgb 6.9 L Hct 21.5 L MCV 83 L MCH 27 L MCHC RDW 19.0 H Plt Count Lymph % (Auto) Douglas % (Auto) Lymph # Douglas # Seg Neutrophils % Seg Neuts % (Manual) 96.0 H Lymphocytes % (Manual) 3.0 L Seg Neutrophils # Seg Neutrophils # Man 22.9 H Lymphocytes # (Manual) 0.7 L PT INR D-Dimer ABG pH ABG pO2 ABG HCO3 ABG O2 Saturation ABG Base Excess ABG Hemoglobin Oxyhemoglobin Sodium Potassium Chloride Carbon Dioxide BUN Creatinine Glucose POC Glucose 108 H 126 H Lactic Acid Calcium Magnesium Iron TIBC Ferritin AST ALT Lactate Dehydrogenase Troponin T C-Reactive Protein Total Protein Albumin Cholesterol LDL Cholesterol Direct HDL Cholesterol Urine WBC (Auto) Vancomycin Trough Coronavirus (PCR) Crossmatch 07/13/19 07/13/19 07/13/19 06:50 12:38 18:05 WBC RBC Hgb Hct MCV MCH MCHC RDW Plt Count Lymph % (Auto) Douglas % (Auto) Lymph # Douglas # Seg Neutrophils % Seg Neuts % (Manual) Lymphocytes % (Manual) Seg Neutrophils # Seg Neutrophils # Man Lymphocytes # (Manual) PT INR D-Dimer ABG pH ABG pO2 ABG HCO3 ABG O2 Saturation ABG Base Excess ABG Hemoglobin Oxyhemoglobin Sodium Potassium Chloride Carbon Dioxide BUN 33 H Creatinine 0.5 L Glucose 136 H POC Glucose 164 H 145 H Lactic Acid Calcium Magnesium Iron TIBC Ferritin AST ALT Lactate Dehydrogenase Troponin T C-Reactive Protein Total Protein Albumin Cholesterol LDL Cholesterol Direct HDL Cholesterol Urine WBC (Auto) Vancomycin Trough Coronavirus (PCR) Crossmatch 07/13/19 07/14/19 07/14/19 18:30 00:21 04:40 WBC 22.9 H RBC 2.45 L Hgb 6.6 L Hct 21.1 L MCV MCH 27 L MCHC 31 L RDW 19.2 H Plt Count Lymph % (Auto) Douglas % (Auto) Lymph # Douglas # Seg Neutrophils % Seg Neuts % (Manual) 91.0 H Lymphocytes % (Manual) 7.0 L Seg Neutrophils # Seg Neutrophils # Man 20.8 H Lymphocytes # (Manual) PT INR D-Dimer ABG pH ABG pO2 58.1 L ABG HCO3 ABG O2 Saturation 88.7 L ABG Base Excess ABG Hemoglobin 7.8 L Oxyhemoglobin 86.8 L Sodium Potassium Chloride Carbon Dioxide BUN Creatinine Glucose POC Glucose 118 H Lactic Acid Calcium Magnesium Iron TIBC Ferritin AST ALT Lactate Dehydrogenase Troponin T C-Reactive Protein Total Protein Albumin Cholesterol LDL Cholesterol Direct HDL Cholesterol Urine WBC (Auto) Vancomycin Trough Coronavirus (PCR) Crossmatch 07/14/19 07/14/19 07/14/19 04:40 05:38 05:45 WBC RBC Hgb Hct MCV MCH MCHC RDW Plt Count Lymph % (Auto) Douglas % (Auto) Lymph # Douglas # Seg Neutrophils % Seg Neuts % (Manual) Lymphocytes % (Manual) Seg Neutrophils # Seg Neutrophils # Man Lymphocytes # (Manual) PT INR D-Dimer ABG pH 7.230 L ABG pO2 72.1 L ABG HCO3 ABG O2 Saturation 89.3 L ABG Base Excess -2.7 L ABG Hemoglobin 6.7 L Oxyhemoglobin 87.7 L Sodium Potassium Chloride 107.4 H Carbon Dioxide BUN 45 H Creatinine Glucose 101 H POC Glucose 154 H Lactic Acid Calcium Magnesium Iron TIBC Ferritin AST ALT Lactate Dehydrogenase Troponin T C-Reactive Protein Total Protein Albumin Cholesterol LDL Cholesterol Direct HDL Cholesterol Urine WBC (Auto) Vancomycin Trough Coronavirus (PCR) Crossmatch 07/14/19 07/14/19 07/14/19 12:25 18:20 19:01 WBC 22.4 H RBC 2.70 L Hgb 7.5 L Hct 23.3 L MCV MCH MCHC RDW 19.5 H Plt Count Lymph % (Auto) Douglas % (Auto) Lymph # Douglas # Seg Neutrophils % Seg Neuts % (Manual) Lymphocytes % (Manual) Seg Neutrophils # Seg Neutrophils # Man Lymphocytes # (Manual) PT INR D-Dimer ABG pH ABG pO2 ABG HCO3 ABG O2 Saturation ABG Base Excess ABG Hemoglobin Oxyhemoglobin Sodium Potassium Chloride Carbon Dioxide BUN Creatinine Glucose POC Glucose 136 H 131 H Lactic Acid Calcium Magnesium Iron TIBC Ferritin AST ALT Lactate Dehydrogenase Troponin T C-Reactive Protein Total Protein Albumin Cholesterol LDL Cholesterol Direct HDL Cholesterol Urine WBC (Auto) Vancomycin Trough Coronavirus (PCR) Crossmatch 07/15/19 07/15/19 07/15/19 00:17 04:35 05:18 WBC 20.6 H RBC 2.41 L Hgb 6.8 L Hct 20.7 L MCV MCH MCHC RDW 20.2 H Plt Count Lymph % (Auto) Douglas % (Auto) Lymph # Douglas # Seg Neutrophils % Seg Neuts % (Manual) 92.0 H Lymphocytes % (Manual) 5.0 L Seg Neutrophils # Seg Neutrophils # Man 19.0 H Lymphocytes # (Manual) 1.0 L PT INR D-Dimer ABG pH 7.342 L ABG pO2 ABG HCO3 ABG O2 Saturation ABG Base Excess -3.1 L ABG Hemoglobin 7.2 L Oxyhemoglobin 94.9 L Sodium Potassium Chloride Carbon Dioxide BUN Creatinine Glucose POC Glucose 116 H Lactic Acid Calcium Magnesium Iron TIBC Ferritin AST ALT Lactate Dehydrogenase Troponin T C-Reactive Protein Total Protein Albumin Cholesterol LDL Cholesterol Direct HDL Cholesterol Urine WBC (Auto) Vancomycin Trough Coronavirus (PCR) Crossmatch 07/15/19 07/15/19 07/15/19 05:18 05:57 11:28 WBC RBC Hgb Hct MCV MCH MCHC RDW Plt Count Lymph % (Auto) Douglas % (Auto) Lymph # Douglas # Seg Neutrophils % Seg Neuts % (Manual) Lymphocytes % (Manual) Seg Neutrophils # Seg Neutrophils # Man Lymphocytes # (Manual) PT INR D-Dimer ABG pH ABG pO2 ABG HCO3 ABG O2 Saturation ABG Base Excess ABG Hemoglobin Oxyhemoglobin Sodium Potassium Chloride Carbon Dioxide 20 L BUN 59 H Creatinine Glucose 140 H POC Glucose 139 H 117 H Lactic Acid Calcium Magnesium Iron TIBC Ferritin AST ALT Lactate Dehydrogenase Troponin T C-Reactive Protein Total Protein Albumin Cholesterol LDL Cholesterol Direct HDL Cholesterol Urine WBC (Auto) Vancomycin Trough Coronavirus (PCR) Crossmatch 07/15/19 07/16/19 07/16/19 18:13 00:06 03:43 WBC RBC Hgb Hct MCV MCH MCHC RDW Plt Count Lymph % (Auto) Douglas % (Auto) Lymph # Douglas # Seg Neutrophils % Seg Neuts % (Manual) Lymphocytes % (Manual) Seg Neutrophils # Seg Neutrophils # Man Lymphocytes # (Manual) PT INR D-Dimer ABG pH 7.344 L ABG pO2 68.6 L ABG HCO3 ABG O2 Saturation ABG Base Excess -3.5 L ABG Hemoglobin 6.1 L Oxyhemoglobin 93.3 L Sodium Potassium Chloride Carbon Dioxide BUN Creatinine Glucose POC Glucose 114 H 119 H Lactic Acid Calcium Magnesium Iron TIBC Ferritin AST ALT Lactate Dehydrogenase Troponin T C-Reactive Protein Total Protein Albumin Cholesterol LDL Cholesterol Direct HDL Cholesterol Urine WBC (Auto) Vancomycin Trough Coronavirus (PCR) Crossmatch 07/16/19 07/16/19 07/16/19 04:41 04:41 12:09 WBC 19.6 H RBC 2.81 L Hgb 7.7 L Hct 24.0 L MCV MCH 27 L MCHC RDW 19.4 H Plt Count 514 H Lymph % (Auto) 6.7 L Douglas % (Auto) Lymph # Douglas # 1.0 H Seg Neutrophils % 87.0 H Seg Neuts % (Manual) Lymphocytes % (Manual) Seg Neutrophils # 17.0 H Seg Neutrophils # Man Lymphocytes # (Manual) PT INR D-Dimer ABG pH ABG pO2 ABG HCO3 ABG O2 Saturation ABG Base Excess ABG Hemoglobin Oxyhemoglobin Sodium Potassium 5.9 H Chloride Carbon Dioxide 21 L BUN 73 H Creatinine 2.0 H Glucose POC Glucose 141 H Lactic Acid Calcium Magnesium Iron TIBC Ferritin AST ALT Lactate Dehydrogenase Troponin T C-Reactive Protein Total Protein Albumin Cholesterol LDL Cholesterol Direct HDL Cholesterol Urine WBC (Auto) Vancomycin Trough Coronavirus (PCR) Crossmatch 07/16/19 07/16/19 07/17/19 16:19 17:45 00:16 WBC RBC Hgb Hct MCV MCH MCHC RDW Plt Count Lymph % (Auto) Douglas % (Auto) Lymph # Douglas # Seg Neutrophils % Seg Neuts % (Manual) Lymphocytes % (Manual) Seg Neutrophils # Seg Neutrophils # Man Lymphocytes # (Manual) PT INR D-Dimer ABG pH ABG pO2 ABG HCO3 ABG O2 Saturation ABG Base Excess ABG Hemoglobin Oxyhemoglobin Sodium Potassium 5.1 H Chloride Carbon Dioxide 20 L BUN 72 H Creatinine 1.7 H Glucose 128 H POC Glucose 181 H 164 H Lactic Acid Calcium Magnesium Iron TIBC Ferritin AST ALT Lactate Dehydrogenase Troponin T C-Reactive Protein Total Protein Albumin Cholesterol LDL Cholesterol Direct HDL Cholesterol Urine WBC (Auto) Vancomycin Trough Coronavirus (PCR) Crossmatch 07/17/19 07/17/19 07/17/19 04:20 04:39 04:39 WBC 16.1 H RBC 2.92 L Hgb 8.0 L Hct 25.5 L MCV MCH MCHC 31 L RDW 19.7 H Plt Count 564 H Lymph % (Auto) 3.6 L Douglas % (Auto) 7.4 H Lymph # 0.6 L Douglas # 1.2 H Seg Neutrophils % 87.5 H Seg Neuts % (Manual) Lymphocytes % (Manual) Seg Neutrophils # 14.1 H Seg Neutrophils # Man Lymphocytes # (Manual) PT INR D-Dimer ABG pH 7.231 L ABG pO2 95.3 H ABG HCO3 ABG O2 Saturation ABG Base Excess -5.0 L ABG Hemoglobin 7.9 L Oxyhemoglobin 94.8 L Sodium Potassium Chloride 107.8 H Carbon Dioxide 21 L BUN 68 H Creatinine Glucose POC Glucose Lactic Acid Calcium Magnesium Iron TIBC Ferritin AST ALT Lactate Dehydrogenase Troponin T C-Reactive Protein Total Protein Albumin Cholesterol LDL Cholesterol Direct HDL Cholesterol Urine WBC (Auto) Vancomycin Trough Coronavirus (PCR) Crossmatch 07/17/19 07/17/19 05:28 12:11 WBC RBC Hgb Hct MCV MCH MCHC RDW Plt Count Lymph % (Auto) Douglas % (Auto) Lymph # Douglas # Seg Neutrophils % Seg Neuts % (Manual) Lymphocytes % (Manual) Seg Neutrophils # Seg Neutrophils # Man Lymphocytes # (Manual) PT INR D-Dimer ABG pH ABG pO2 ABG HCO3 ABG O2 Saturation ABG Base Excess ABG Hemoglobin Oxyhemoglobin Sodium Potassium Chloride Carbon Dioxide BUN Creatinine Glucose POC Glucose 121 H 125 H Lactic Acid Calcium Magnesium Iron TIBC Ferritin AST ALT Lactate Dehydrogenase Troponin T C-Reactive Protein Total Protein Albumin Cholesterol LDL Cholesterol Direct HDL Cholesterol Urine WBC (Auto) Vancomycin Trough Coronavirus (PCR) Crossmatch Allied health notes reviewed: nursing
[2019-07-17 20:09] LABS: ABG Base Excess -3.3 mmol/L (-2.0-3.0); ABG HCO3 22.2 mmol/L (20.0-26.0); ABG PCO2 41.7 mm Hg; ABG PH 7.344 pH Units (7.350-7.450); ABG PO2 78.5 mm Hg (80.0-90.0)
[2019-07-17 20:15] LABS: ABG Methemoglobin 0.4 % (0.0-1.5); ABG Oxygen Saturation 96.5 % (95.0-99.0)
[2019-07-17] MEDS: fentaNYL DRIP Premix 2,000 MCG/100 ML BAG IV SCH (20:43)
[2019-07-17] MEDS: SODIUM BICARBONATE 325 MG TAB FEEDTUBE PRN (21:42)
[2019-07-18] MEDS: INSULIN LISPRO 100 UNIT/ML SUB-Q SCH ×3 (00:02→12:58)
[2019-07-18 04:13] LABS: ABG Base Excess -2.6 mmol/L (-2.0-3.0); ABG HCO3 23.9 mmol/L (20.0-26.0); ABG Methemoglobin 0.4 % (0.0-1.5); ABG PCO2 50.4 mm Hg; ABG PH 7.294 pH Units (7.350-7.450); ABG PO2 119.2 mm Hg (80.0-90.0)
[2019-07-18 05:50] LABS: Basophils # (Auto) 0.2 K/mm3 (0.0-0.1); Basophils % (Auto) 1.2 % (0.0-1.8); Eosinophils # (Auto) 0.2 K/mm3 (0.0-0.4); Eosinophils % (Auto) 1.3 % (0.0-4.3); Hemoglobin 8.1 gm/dl (11.8-15.2); Lymphocytes % (Auto) 6.3 % (13.4-35.0); Mean Corpuscular HGB Conc 31 % (32-34); Mean Corpuscular Volume 87 fl (84-94); Monocytes # (Auto) 1.2 K/mm3 (0.0-0.8); Monocytes % (Auto) 7.4 % (0.0-7.3); Platelet Count 733 K/mm3 (140-440); Red Cell Distribution Width 19.4 % (13.2-15.2)
[2019-07-18 06:09] LABS: BUN/Creatinine Ratio 55; Blood Urea Nitrogen 61 mg/dL (9-20); Hemolysis Index 9
--- NOTE | 2019-07-18 09:14 | Progress Note ---
Assessment and Plan 1. Hypoantremia: Suspect SIADH. Sodium level has improved, now 142. Monitor Sodium level. 2. FEN: Metabolic acidosis, monitor. Hyperkalemia, improved, monitor. Monitor volume status and lytes. 3. Acute kidney injury: Vasomotor MIRANDA likely 2/2 persistent hypotension. Creatinine is improving, now 1.1 from 1.4 from 2.0 from 1.5. Initial bump in creatinine was 07/14. Monitor renal function. Avoid nephrotoxic agents. Meds dosage based on GFR. 4. Acute hypoxic respiratory failure: Currently intubated and on vent. Pulmonary following. 5. Severe Sepsis, POA. Tachycardia is improving with metoprolol but still present. Still on levophed but titrated down which pt is tolerating. Followed by ID. 6. Severe COVID-19 pneumonia. 7. Shock: Still on pressors, titrating down. Receiving IV fluid bolus as needed for hypotension. Monitor BP closely. 8. Microcytic anemia, POA: Has received total of 4 units PRBC prior to today's transfusion. Hgb improved 07/15 s/p PRBC. Monitor hgb. 9. Possible occlusion of PEG tube: Occlusion noted by staff. Imaging 07/16 confirmed PEG is in place. Staff using bicarb for declogging PRN and at this time, able to use successfully. 10. Diabetes mellitus. 11. COPD. 12. Encephalopathy, POA: Metabolic. Subjective Date of service: 07/18/19 Principal diagnosis: Bilateral pneumonia, severe sepsis with septic shock, encephalopathy Interval history: Patient was only seen from outside the glass door to prevent exposure to COVID- 19. PPE is also limited supply. Reviewed all notes, vitals, and labs to date. Discussed plan of care with primary RN. Objective - Exam Narrative Exam: General appearance: intubated on ventilator, carroll HEENT: not examined Neck: not examined Respiratory: not examined Heart: sinus tach on the monitor Gastrointestinal: not examined Integumentary: not examined Neurologic: not examined Ext: not examined - Vital Signs Vital signs: Vital Signs - 12hr 07/17/19 07/17/19 07/17/19 21:16 21:30 21:45 Temperature Pulse Rate 124 H 124 H 123 H Pulse Rate [ From Monitor] Respiratory 30 H 30 H Rate Blood Pressure 118/67 118/67 118/67 O2 Sat by Pulse 100 98 Oximetry 07/17/19 07/17/19 07/17/19 21:46 22:00 22:15 Temperature Pulse Rate 123 H 123 H 122 H Pulse Rate [ From Monitor] Respiratory 30 H 23 20 Rate Blood Pressure 118/67 109/62 115/60 O2 Sat by Pulse 96 100 100 Oximetry 07/17/19 07/17/19 07/17/19 22:30 22:43 22:45 Temperature Pulse Rate 124 H 126 H 126 H Pulse Rate [ From Monitor] Respiratory 16 17 18 Rate Blood Pressure 102/49 102/49 94/53 O2 Sat by Pulse 99 100 100 Oximetry 07/17/19 07/17/19 07/17/19 23:00 23:15 23:25 Temperature Pulse Rate 124 H 125 H 122 H Pulse Rate [ From Monitor] Respiratory 16 16 Rate Blood Pressure 98/54 102/53 98/51 O2 Sat by Pulse 100 100 100 Oximetry 07/17/19 07/17/19 07/18/19 23:30 23:45 00:00 Temperature 98.7 F Pulse Rate 122 H 121 H 118 H Pulse Rate [ 118 H From Monitor] Respiratory 16 16 15 Rate Blood Pressure 98/51 100/53 110/56 O2 Sat by Pulse 100 100 100 Oximetry 07/18/19 07/18/19 07/18/19 00:15 00:30 00:45 Temperature Pulse Rate 117 H 112 H 110 H Pulse Rate [ From Monitor] Respiratory 17 15 16 Rate Blood Pressure 113/62 102/61 102/59 O2 Sat by Pulse 100 99 98 Oximetry 07/18/19 07/18/19 07/18/19 01:00 01:15 01:30 Temperature Pulse Rate 109 H 108 H 108 H Pulse Rate [ From Monitor] Respiratory 16 16 16 Rate Blood Pressure 103/58 102/59 97/54 O2 Sat by Pulse 99 100 99 Oximetry 07/18/19 07/18/19 07/18/19 01:45 02:00 02:15 Temperature Pulse Rate 108 H 108 H 107 H Pulse Rate [ From Monitor] Respiratory 16 16 15 Rate Blood Pressure 98/57 103/59 110/60 O2 Sat by Pulse 100 99 99 Oximetry 07/18/19 07/18/19 07/18/19 02:30 02:45 03:00 Temperature Pulse Rate 108 H 109 H 108 H Pulse Rate [ From Monitor] Respiratory 16 16 20 Rate Blood Pressure 103/59 108/63 114/70 O2 Sat by Pulse 100 100 100 Oximetry 07/18/19 07/18/19 07/18/19 03:16 03:30 03:35 Temperature Pulse Rate 110 H 108 H 103 H Pulse Rate [ From Monitor] Respiratory 10 L 16 Rate Blood Pressure 107/55 103/62 103/62 O2 Sat by Pulse 100 100 100 Oximetry 07/18/19 07/18/19 07/18/19 03:45 04:00 04:15 Temperature 97.6 F Pulse Rate 107 H 107 H 107 H Pulse Rate [ 107 H From Monitor] Respiratory 14 17 13 Rate Blood Pressure 104/61 98/64 107/66 O2 Sat by Pulse 100 100 100 Oximetry 07/18/19 07/18/19 07/18/19 04:30 04:45 05:00 Temperature Pulse Rate 105 H 105 H 105 H Pulse Rate [ From Monitor] Respiratory 16 16 16 Rate Blood Pressure 107/67 108/69 117/72 O2 Sat by Pulse 100 100 100 Oximetry 07/18/19 07/18/19 07/18/19 05:15 05:30 05:46 Temperature Pulse Rate 104 H 103 H 101 H Pulse Rate [ From Monitor] Respiratory 15 16 16 Rate Blood Pressure 119/70 122/74 97/57 O2 Sat by Pulse 100 100 100 Oximetry 07/18/19 07/18/19 07/18/19 06:00 06:15 06:30 Temperature Pulse Rate 102 H 102 H 102 H Pulse Rate [ From Monitor] Respiratory 16 16 16 Rate Blood Pressure 99/63 95/57 95/58 O2 Sat by Pulse 100 100 100 Oximetry 07/18/19 07/18/19 07/18/19 06:45 07:00 07:15 Temperature Pulse Rate 101 H 100 H 101 H Pulse Rate [ From Monitor] Respiratory 16 16 16 Rate Blood Pressure 102/61 98/57 101/60 O2 Sat by Pulse 98 100 100 Oximetry 07/18/19 07/18/19 07/18/19 07:30 07:45 08:00 Temperature 96.6 F L Pulse Rate 102 H 101 H 103 H Pulse Rate [ 107 H From Monitor] Respiratory 16 16 16 Rate Blood Pressure 100/61 94/54 102/63 O2 Sat by Pulse 95 100 100 Oximetry 07/18/19 07/18/19 08:15 08:36 Temperature Pulse Rate 98 H 98 H Pulse Rate [ From Monitor] Respiratory 16 Rate Blood Pressure 107/64 107/64 O2 Sat by Pulse 98 98 Oximetry - Lab 07/18/19 05:22 07/18/19 05:22 Most recent lab results ABG pH 7.294 pH Units (7.350-7.450) L 07/18/19 02:30 ABG pCO2 50.4 mm Hg 07/18/19 02:30 ABG pO2 119.2 mm Hg (80.0-90.0) H 07/18/19 02:30 ABG HCO3 23.9 mmol/L (20.0-26.0) 07/18/19 02:30 ABG O2 Saturation 98.0 % (95.0-99.0) 07/18/19 02:30 Calcium 9.0 mg/dL (8.4-10.2) 07/18/19 05:22 Phosphorus 3.60 mg/dL (2.5-4.5) 07/05/19 04:00 Magnesium 1.80 mg/dL (1.7-2.3) 07/11/19 05:14 Medications & Allergies - Medications Allergies/Adverse Reactions: Allergies No Known Allergies Allergy (Unverified 09/09/16 16:29) Home Medications: Home Medications Medication Instructions Recorded Confirmed Last Taken Type Acetaminophen [Tylenol] 500 mg PO TID 07/04/19 07/04/19 Unknown History Albuterol Sulfate [Proair 90 mcg IH TID 07/04/19 07/04/19 Unknown History Digihaler] Amlodipine Besylate [Norvasc] 2.5 mg PO QDAY 07/04/19 07/04/19 Unknown History Aspirin [Aspirin BABY CHEW TAB] 81 mg PO QDAY 07/04/19 07/04/19 Unknown History Atorvastatin Calcium [Lipitor] 80 mg PO QDAY 07/04/19 07/04/19 Unknown History Benztropine Mesylate 0.5 mg PO QDAY 07/04/19 07/04/19 Unknown History Budesonide/Formoterol Fumarate 10.2 gm IH BID 07/04/19 07/04/19 Unknown History [Budesonide-Formoterol 160-4.5] Divalproex ER [DepaKOTE ER] 1,000 mg PO QDAY 07/04/19 07/04/19 Unknown History Docusate Sodium [Colace] 100 mg PO QDAY 07/04/19 07/04/19 Unknown History Folic Acid [Folvite] 1 mg PO QDAY 07/04/19 07/04/19 Unknown History Hydrophilic Ointment [Dermafix] 113 gm TP QDAY 07/04/19 07/04/19 Unknown History Losartan [Cozaar] 100 mg PO QDAY 07/04/19 07/04/19 Unknown History Metformin HCl [Metformin HCl ER] 500 mg PO QDAY 07/04/19 07/04/19 Unknown History Metoprolol Tartrate 25 mg PO BID 07/04/19 07/04/19 Unknown History Multivit with Minerals/Ginseng 1 each PO QDAY 07/04/19 07/04/19 Unknown History [Super Ginseng Multivit Cap] Quetiapine Fumarate [SEROquel Xr] 400 mg PO QHS 07/04/19 07/04/19 Unknown History Sertraline HCl [Zoloft] 100 mg PO QDAY 07/04/19 07/04/19 Unknown History Sildenafil Citrate [Viagra] 100 mg PO QDAY PRN 07/04/19 07/04/19 Unknown History Tamsulosin [Flomax] 0.4 mg PO QDAY 07/04/19 07/04/19 Unknown History Active Medications: Generic Name Dose Route Start Last Admin Trade Name Freq PRN Reason Stop Dose Admin Acetaminophen 650 mg 07/04/19 04:24 Tylenol [place] Q6H PRN Pain MILD(1-3)/Fever >100.5/MURO Acetaminophen 650 mg 07/10/19 04:00 07/15/19 20:35 Tylenol PO 650 mg Q6HR PRN Administration Pain, Mild (1-3) FEVER Lipase/Protease/Amylase 1 each 07/04/19 10:04 07/17/19 21:42 Pancrewhitley Gilbert 10,500 Unit FEEDTUBE 1 each PRN PRN Administration For Clogged Feeding Tube Aspirin 81 mg 07/05/19 10:00 07/17/19 11:15 Baby Aspirin PO 81 mg QDAY TAMMIE Administration Dextrose 50 ml 07/04/19 06:54 D50w (25gm) Syringe IV Q30MIN PRN Hypoglycemia Protocol Docusate Sodium 100 mg 07/10/19 10:00 04/28/20 21:44 Colace PO 100 mg BID TAMMIE Administration Famotidine 20 mg 07/17/19 10:00 07/17/19 21:52 Pepcid PO 20 mg BID [facility] Administration Fentanyl 50 mcg 07/12/19 15:09 Sublimaze IV Q10MIN PRN ANALGESIA Folic Acid 1 mg 07/05/19 10:00 07/17/19 11:06 Folvite PO 1 mg QDAY TAMMIE Administration Hydrophilic Ointment 1 applic 07/03/19 19:56 07/05/19 17:42 Vaseline Lip Therapy TP 1 applic Q2HR PRN Administration Dry Lips Norepinephrine 4 mg in 250 mls @ 7.5 mls/hr 07/03/19 23:00 07/18/19 05:30 Levophed Drip 4 Mg/Ns 250 Ml IV 4 mcg/min TITR TAMMIE 15 mls/hr Titration Protocol 2 MCG/MIN Fentanyl Citrate 2,000 mcg in 100 mls @ 4.25 mls/hr 07/12/19 16:00 07/18/19 07:56 Fentanyl Drip Premix IV 2 mcg/kg/hr TITR TAMMIE 8.5 mls/hr Titration Protocol 1 MCG/KG/HR Insulin Human Lispro 0 unit 07/07/19 12:00 07/18/19 06:03 Humalog SUB-Q Not Given Q6HR [facility] Protocol Levetiracetam 750 mg 07/06/19 11:00 07/17/19 21:44 Keppra FEEDTUBE 750 mg Q12HR [facility] Administration Metoprolol Tartrate 5 mg 07/12/19 15:08 07/12/19 15:30 Metoprolol IV 5 mg Q6HR PRN Administration Tachyarrhythmias Metoprolol Tartrate 12.5 mg 07/12/19 16:00 07/17/19 21:45 Metoprolol PO 12.5 mg BID [facility] Administration Morphine Sulfate 2 mg 07/04/19 04:24 07/13/19 08:06 Morphine IV 2 mg Q4H PRN Administration Pain, Moderate (4-6) Multi-Ingred Cream/Lotion/Oil/Oint 1 applic 07/03/19 19:56 07/05/19 13:19 Artificial Tears Ophth Oint OU 1 applic Q4HR PRN Administration Dry Eye(s) Naloxone HCl 0.1 mg 07/04/19 04:24 Naloxone IV Q2MIN PRN Res Rate </= 8 or 02 SAT < 92% Scopolamine 1 each 07/10/19 11:00 07/16/19 10:05 Transderm-Scop TD 1 each Q3D TAMMIE Administration Simple Syrup 15 ml 07/04/19 10:04 07/10/19 21:56 Simple Syrup FEEDTUBE 15 ml PRN PRN Administration Hypoglycemia Simple Syrup 30 ml 07/04/19 10:04 Simple Syrup FEEDTUBE PRN PRN Hypoglycemia Sodium Bicarbonate 325 mg 07/04/19 10:04 07/17/19 21:42 Sodium Bicarbonate FEEDTUBE 325 mg PRN PRN Administration For Clogged Feeding Tube Sodium Chloride 10 ml 07/04/19 10:00 07/17/19 21:44 Sodium Chloride Flush Syringe 10 Ml IV 10 ml BID TAMMIE Administration Sodium Chloride 10 ml 07/04/19 04:24 Sodium Chloride Flush Syringe 10 Ml IV PRN PRN LINE FLUSH Sodium Hypochlorite 1 applic 07/10/19 14:00 07/17/19 21:44 Dakin's Half Strength TP 1 applicatio BID TAMMIE Administration
[2019-07-18] MEDS: METOPROLOL TARTRATE 25 MG TAB PO SCH ×2 (09:20→22:13)
[2019-07-18] MEDS: FAMOTIDINE 20 MG TAB PO SCH ×2 (09:22→22:13)
[2019-07-18] MEDS: FOLIC ACID 1 MG TAB PO SCH (09:22)
[2019-07-18] MEDS: SODIUM HYPOCHLORITE, DAKIN'S 1/2 STRENGTH (0.25%) 473 ML TOPICAL SOLN TP SCH ×2 (09:23→21:25)
[2019-07-18] MEDS: levETIRAcetam 500 MG/5 ML ORAL LIQD FEEDTUBE SCH ×2 (09:23→22:14)
[2019-07-18] MEDS: ASPIRIN 81 MG TAB CHEW PO SCH (09:23)
[2019-07-18] MEDS: DOCUSATE SODIUM 100 MG/10 ML ORAL LIQD PO SCH ×2 (09:23→22:13)
--- NOTE | 2019-07-18 09:42 | Progress Note ---
Assessment and Plan Assessment and plan: --Malfunctioning PEG tube; X-ray shows that PEG is in place Continue PEG feeds --Septic shock: On Levophed Persistent hypotension, titrate to systolic blood pressure more than 100 --Anemia, Microcytic persistent Transfused 1 unit of PRBC, today Hb 7.7 Stool for occult blood, monitor H&H --COVid positive pneumonia with severe sepsis Received Plaquenil and cefepime, monitor off antibiotics ID following -- Acute respiratory Failure with Hypoxia Due to bilateral PNA with COVID 19 infection. pulmonary critical care following Continue ventilatory support, wean as tolerated and extubate --Acute metabolic encephalopathy Multifactorial, respiratory failure, sepsis, anemia Electrolyte abnormalities, seizures --COPD with exacerbation Likely due to COVID-19 pneumonia Continue scheduled nebs --Pressure Ulcers buttocks, right lateral foot area present upon admission wound care consulted --Hyponatremia, continue IV fluid --DM type 2 Accu-Chek sliding scale coverage ADA diet insulin --HTN Essential, now hypotensive relatively low BP, on IVF. monitor --Seizure D/o/CVA/immobility/BIpolar D/o/SCZ chronic medical conditions, stable --Severe PCM, TF for now, dietary following patient is DNR- Called and verified information Very poor prognosis, Recommend hospice 07/04: COVID +ve, start on plaquinil, called no answer 07/05: transfuse one unit PRBC, Hb dropped to ~6, called and updated 07/06; H&H stable, serum chemistry improved. On mechanical ventilation with high inflammatory markers. Continue Plaquenil and empiric antibiotics. ID following, prognosis remains guarded and extremely poor. 07/07: On mechanical ventilation with high inflammatory markers. Continue Plaq uenil and empiric antibiotics. ID following, prognosis remains guarded and extremely poor. 07/08: Called today and verified the CODE STATUS. Patient remains DNR. He is still intubated, with poor prognosis. Continue to follow inflammatory markers. 07/09 wean off from vent as tolerated, completed empiric antibiotic and Plaquenil 07/10 wean off from vent as tolerated. poor prognosis 07/11 hb 6.7 today, transfuse one PRBC. wean off from vent as tolerated. poor prognosis 07/12 remains critically on vent. Hb 6.9 07/13 Hb dropped to 6.6, transfuse 1 unit of PRBC, remains on vent critically ill Hypotensive, fluid bolus, if no improvement start Levophed 07/14; remains anemic with hemoglobin of 6.8, received total 3 units of PRBC Additional 1 unit of PRBC today, stool for occult blood to rule out GI causes Started back on Levophed due to hypotension 07/15; patient remains critically ill, hypotensive on Levophed 07/16: Today remains intubated on vent, persistent hypotension on Levophed 07/17; clinically no change, pressor dependent[on Levophed] DNR status The high probability of a clinically significant, sudden or life threatening deterioration of the [respiratory, CVS, RETORT UNLOADER] system(s) required my full and direct attention, intervention and personal management. The aggregate critical care time was [34] minutes. This time is in addition to time spent performing reported procedures but includes the following: [x] Data Review and interpretation [x] Patient assessment and monitoring of vital signs [x] Documentation [x] Medication orders and management Critical care time 34 minutes History Interval history: Patient seen and examined medical records reviewed[COVID positive patient] Patient remains intubated on ventilatory support Critically ill poor prognosis Vital signs reviewed Hospitalist Physical - Constitutional Vitals: Temp Pulse Resp BP Pulse Ox 96.6 F L 98 H 16 107/64 98 07/18/19 08:00 07/18/19 08:36 07/18/19 08:15 07/18/19 08:36 07/18/19 08:36 General appearance: Present: no acute distress, well-nourished, other (Orally intubated on vent) - EENT Eyes: Present: PERRL, EOM intact - Neck Neck: Present: supple, normal ROM - Respiratory Respiratory effort: normal Respiratory: bilateral: diminished, rhonchi, negative: rales, wheezing - Cardiovascular Rhythm: regular Heart Sounds: Present: S1 & S2 - Extremities Extremities: no ischemia, No edema - Abdominal General gastrointestinal: soft, non-tender, non-distended, normal bowel sounds - Integumentary Integumentary: Present: clear, warm - Psychiatric Psychiatric: other (Intubated on vent) - Neurologic Neurologic: other (Intubated on vent) Results - Labs CBC & Chem 7: 07/18/19 05:22 07/18/19 05:22 Labs: Laboratory Last Values WBC 15.9 K/mm3 (4.5-11.0) H 07/18/19 05:22 RBC 3.00 M/mm3 (3.65-5.03) L 07/18/19 05:22 Hgb 8.1 gm/dl (11.8-15.2) L 07/18/19 05:22 Hct 26.0 % (35.5-45.6) L 07/18/19 05:22 MCV 87 fl (84-94) 07/18/19 05:22 MCH 27 pg (28-32) L 07/18/19 05:22 MCHC 31 % (32-34) L 07/18/19 05:22 RDW 19.4 % (13.2-15.2) H 07/18/19 05:22 Plt Count 733 K/mm3 (140-440) H 07/18/19 05:22 Lymph % (Auto) 6.3 % (13.4-35.0) L 07/18/19 05:22 [place] % (Auto) 7.4 % (0.0-7.3) H 07/18/19 05:22 Eos % (Auto) 1.3 % (0.0-4.3) 07/18/19 05:22 Baso % (Auto) 1.2 % (0.0-1.8) 07/18/19 05:22 Lymph # 1.0 K/mm3 (1.2-5.4) L 07/18/19 05:22 Garland # 1.2 K/mm3 (0.0-0.8) H 07/18/19 05:22 Eos # 0.2 K/mm3 (0.0-0.4) 07/18/19 05:22 Baso # 0.2 K/mm3 (0.0-0.1) H 07/18/19 05:22 Add Manual Diff Complete 07/15/19 05:18 Total Counted 100 07/15/19 05:18 Seg Neutrophils % 83.8 % (40.0-70.0) H 07/18/19 05:22 Seg Neuts % (Manual) 92.0 % (40.0-70.0) H 07/15/19 05:18 Band Neutrophils % 0 % 07/15/19 05:18 Lymphocytes % (Manual) 5.0 % (13.4-35.0) L 07/15/19 05:18 Reactive Lymphs % (Man) 0 % 07/15/19 05:18 Monocytes % (Manual) 3.0 % (0.0-7.3) 07/15/19 05:18 Eosinophils % (Manual) 0 % (0.0-4.3) 07/15/19 05:18 Basophils % (Manual) 0 % (0.0-1.8) 07/15/19 05:18 Metamyelocytes % 0 % 07/15/19 05:18 Myelocytes % 0 % 07/15/19 05:18 Promyelocytes % 0 % 07/15/19 05:18 Blast Cells % 0 % 07/15/19 05:18 Nucleated RBC % Not Reportable 07/15/19 05:18 Seg Neutrophils # 13.3 K/mm3 (1.8-7.7) H 07/18/19 05:22 Seg Neutrophils # Man 19.0 K/mm3 (1.8-7.7) H 07/15/19 05:18 Band Neutrophils # 0.0 K/mm3 07/15/19 05:18 Lymphocytes # (Manual) 1.0 K/mm3 (1.2-5.4) L 07/15/19 05:18 Abs React Lymphs (Man) 0.0 K/mm3 07/15/19 05:18 Monocytes # (Manual) 0.6 K/mm3 (0.0-0.8) 07/15/19 05:18 Eosinophils # (Manual) 0.0 K/mm3 (0.0-0.4) 07/15/19 05:18 Basophils # (Manual) 0.0 K/mm3 (0.0-0.1) 07/15/19 05:18 Metamyelocytes # 0.0 K/mm3 07/15/19 05:18 Myelocytes # 0.0 K/mm3 07/15/19 05:18 Promyelocytes # 0.0 K/mm3 07/15/19 05:18 Blast Cells # 0.0 K/mm3 07/15/19 05:18 WBC Morphology Not Reportable 07/15/19 05:18 Hypersegmented Neuts Not Reportable 07/15/19 05:18 Hyposegmented Neuts Not Reportable 07/15/19 05:18 Hypogranular Neuts Not Reportable 07/15/19 05:18 Smudge Cells Not Reportable 07/15/19 05:18 Toxic Granulation Not Reportable 07/15/19 05:18 Toxic Vacuolation Not Reportable 07/15/19 05:18 Dohle Bodies Not Reportable 07/15/19 05:18 Pelger-Huet Anomaly Not Reportable 07/15/19 05:18 Mendy Rods Not Reportable 07/15/19 05:18 Platelet Estimate Consistent w auto 07/15/19 05:18 Clumped Platelets Not Reportable 07/15/19 05:18 Plt Clumps, EDTA Not Reportable 07/15/19 05:18 Large Platelets Not Reportable 07/15/19 05:18 Giant Platelets Not Reportable 07/15/19 05:18 Platelet Satelliting Not Reportable 07/15/19 05:18 Plt Morphology Comment Not Reportable 07/15/19 05:18 RBC Morphology Not Reportable 07/15/19 05:18 Dimorphic RBCs Not Reportable 07/15/19 05:18 Polychromasia Not Reportable 07/15/19 05:18 Hypochromasia 2+ 07/15/19 05:18 Poikilocytosis Not Reportable 07/15/19 05:18 Anisocytosis 1+ 07/15/19 05:18 Microcytosis Few 07/15/19 05:18 Macrocytosis Not Reportable 07/15/19 05:18 Spherocytes Few 07/15/19 05:18 Pappenheimer Bodies Not Reportable 07/15/19 05:18 Sickle Cells Not Reportable 07/15/19 05:18 Target Cells Not Reportable 07/15/19 05:18 Tear Drop Cells Not Reportable 07/15/19 05:18 Ovalocytes Rare 07/15/19 05:18 Helmet Cells Not Reportable 07/15/19 05:18 Altman-Lynbrook Bodies Not Reportable 07/15/19 05:18 [place] Rings Not Reportable 07/15/19 05:18 Joanne Cells Not Reportable 07/15/19 05:18 Bite Cells Not Reportable 07/15/19 05:18 Crenated Cell Not Reportable 07/15/19 05:18 Elliptocytes Not Reportable 07/15/19 05:18 Acanthocytes (Spur) Not Reportable 07/15/19 05:18 Rouleaux Not Reportable 07/15/19 05:18 Hemoglobin C Crystals Not Reportable 07/15/19 05:18 Schistocytes Few 07/15/19 05:18 Malaria parasites Not Reportable 07/15/19 05:18 Jeevan Bodies Not Reportable 07/15/19 05:18 Hem Pathologist Commnt No 07/15/19 05:18 PT 16.0 Sec. (12.2-14.9) H 07/03/19 22:20 INR 1.26 (0.87-1.13) H 07/03/19 22:20 D-Dimer 1142.18 ng/mlDDU (0-234) H 07/08/19 00:45 ABG pH 7.294 pH Units (7.350-7.450) L 07/18/19 02:30 ABG pCO2 50.4 mm Hg 07/18/19 02:30 ABG pO2 119.2 mm Hg (80.0-90.0) H 07/18/19 02:30 ABG HCO3 23.9 mmol/L (20.0-26.0) 07/18/19 02:30 ABG O2 Saturation 98.0 % (95.0-99.0) 07/18/19 02:30 ABG O2 Content 11.2 (0.0-44) 07/18/19 02:30 ABG Base Excess -2.6 mmol/L (-2.0-3.0) L 07/18/19 02:30 ABG Hemoglobin 8.1 gm/dl (14.0-18.0) L 07/18/19 02:30 ABG Carboxyhemoglobin 1.3 % (0.0-5.0) 07/18/19 02:30 ABG Methemoglobin 0.4 % (0.0-1.5) 07/18/19 02:30 Oxyhemoglobin 96.3 % (95.0-99.0) 07/18/19 02:30 FiO2 50 % 07/18/19 02:30 Sodium 142 mmol/L (137-145) 07/18/19 05:22 Potassium 4.4 mmol/L (3.6-5.0) 07/18/19 05:22 Chloride 110.6 mmol/L (98-107) H 07/18/19 05:22 Carbon Dioxide 22 mmol/L (22-30) 07/18/19 05:22 Anion Gap 14 mmol/L 07/18/19 05:22 BUN 61 mg/dL (9-20) H 07/18/19 05:22 Creatinine 1.1 mg/dL (0.8-1.5) 07/18/19 05:22 Estimated GFR > 60 ml/min 07/18/19 05:22 BUN/Creatinine Ratio 55 % 07/18/19 05:22 Glucose 109 mg/dL (75-100) H 07/18/19 05:22 POC Glucose 116 (70-105) H 07/18/19 04:49 Osmolality 268 Mosm/kg 07/05/19 04:00 Lactic Acid 3.30 mmol/L (0.7-2.0) H* 07/04/19 07:05 Uric Acid 7.2 mg/dL (3.5-7.6) 07/05/19 04:00 Calcium 9.0 mg/dL (8.4-10.2) 07/18/19 05:22 Phosphorus 3.60 mg/dL (2.5-4.5) 07/05/19 04:00 Magnesium 1.80 mg/dL (1.7-2.3) 07/11/19 05:14 Iron 9 ug/dL (49-181) L 07/04/19 07:05 TIBC 97 mcg/dL (250-450) L 07/04/19 07:05 Ferritin 839.0 ng/mL (13.0-400.0) H 07/08/19 00:45 Total Bilirubin 0.20 mg/dL (0.1-1.2) 07/04/19 07:05 AST 73 units/L (5-40) H 07/04/19 07:05 ALT 91 units/L (7-56) H 07/04/19 07:05 Alkaline Phosphatase 114 units/L (35-129) 07/04/19 07:05 Ammonia 35.0 umol/L (25-60) 07/03/19 23:58 Lactate Dehydrogenase 277 units/L (91-180) H 07/10/19 04:00 Troponin T 0.013 ng/mL (0.00-0.029) 07/04/19 07:05 C-Reactive Protein 15.10 mg/dL (0.00-1.30) H 07/10/19 04:00 Total Protein 5.5 g/dL (6.3-8.2) L 07/04/19 07:05 Albumin 2.0 g/dL (3.9-5) L 07/04/19 07:05 Albumin/Globulin Ratio 0.6 % 07/04/19 07:05 Triglycerides 33 mg/dL (2-149) 07/03/19 19:57 Cholesterol 47 mg/dL (50-199) L 07/03/19 19:57 LDL Cholesterol Direct 25 mg/dL (50-130) L 07/03/19 19:57 HDL Cholesterol 20 mg/dL (40-59) L 07/03/19 19:57 Cholesterol/HDL Ratio 2.35 % 07/03/19 19:57 Procalcitonin 1.25 ng/mL (<0.15) 07/10/19 04:00 TSH 2.170 mlU/mL (0.270-4.200) 07/03/19 22:20 Total Cortisol 28.0 mcg/dL () 07/05/19 10:11 Urine Color Naima (Yellow) 07/03/19 21:13 Urine Turbidity Cloudy (Clear) 07/03/19 21:13 Urine pH 5.0 (5.0-7.0) 07/03/19 21:13 Ur Specific [place] 1.016 (1.003-1.030) 07/03/19 21:13 Urine Protein 30 mg/dl mg/dL (Negative) 07/03/19 21:13 Urine Glucose (UA) Neg mg/dL (Negative) 07/03/19 21:13 Urine Ketones Neg mg/dL (Negative) 07/03/19 21:13 Urine Blood Neg (Negative) 07/03/19 21:13 Urine Nitrite Neg (Negative) 07/03/19 21:13 Urine Bilirubin Neg (Negative) 07/03/19 21:13 Urine Urobilinogen 2.0 mg/dL (<2.0) 07/03/19 21:13 Ur Leukocyte Esterase Neg (Negative) 07/03/19 21:13 Urine WBC (Auto) 12.0 /HPF (0.0-6.0) H 07/03/19 21:13 Urine RBC (Auto) 6.0 /HPF (0.0-6.0) 07/03/19 21:13 U Epithel Cells (Auto) 1.0 /HPF (0-13.0) 07/03/19 21:13 Urine Bacteria (Auto) 1+ /HPF (Negative) 07/03/19 21:13 Urine WBC Clumps Few /HPF 07/03/19 21:13 Urine Mucus Few /HPF 07/03/19 21:13 Urine Osmolality 293 Mosm/kg 07/05/19 08:15 Vancomycin Trough 23.2 ug/mL (5.0-20.0) H 07/05/19 17:54 Urine Opiates Screen Presumptive negative 07/03/19 21:13 Urine Methadone Screen Presumptive negative 07/03/19 21:13 Ur Barbiturates Screen Presumptive negative 07/03/19 21:13 Ur Phencyclidine Scrn Presumptive negative 07/03/19 21:13 Ur Amphetamines Screen Presumptive negative 07/03/19 21:13 U Benzodiazepines Scrn Presumptive negative 07/03/19 21:13 Urine Cocaine Screen Presumptive negative 07/03/19 21:13 U Marijuana (THC) Screen Presumptive negative 07/03/19 21:13 Drugs of Abuse Note Disclamer 07/03/19 21:13 Plasma/Serum Alcohol < 0.01 % (0-0.07) 07/03/19 23:58 Coronavirus (PCR) Positive (Negative) A 07/04/19 10:09 Blood Type B POSITIVE 07/12/19 08:49 Antibody Screen Negative 07/12/19 08:49 Crossmatch See Detail 07/12/19 08:49 Wright/IV: Voiding Method Indwelling Catheter IV Catheter Type [Left Upper Mid-line arm] IV Catheter Type [Right INT / Saline Lock Forearm] IV Catheter Type [Right Hand] INT / Saline Lock IV Catheter Type [Right CVL Femoral] IV Catheter Type [Left INT / Saline Lock External Jugular] Active Medications - Current Medications Current Medications: Generic Name Dose Route Start Last Admin Trade Name Freq PRN Reason Stop Dose Admin Acetaminophen 650 mg 07/04/19 04:24 Tylenol [place] Q6H PRN Pain MILD(1-3)/Fever >100.5/MURO Acetaminophen 650 mg 07/10/19 04:00 07/15/19 20:35 Tylenol PO 650 mg Q6HR PRN Administration Pain, Mild (1-3) FEVER Lipase/Protease/Amylase 1 each 07/04/19 10:04 07/17/19 21:42 Pancrewhitley Gilbert 10,500 Unit FEEDTUBE 1 each PRN PRN Administration For Clogged Feeding Tube Aspirin 81 mg 07/05/19 10:00 07/18/19 09:23 Baby Aspirin PO 81 mg QDAY TAMMIE Administration Dextrose 50 ml 07/04/19 06:54 D50w (25gm) Syringe IV Q30MIN PRN Hypoglycemia Protocol Docusate Sodium 100 mg 07/10/19 10:00 07/18/19 09:23 Colace PO 100 mg BID TAMMIE Administration Famotidine 20 mg 07/17/19 10:00 07/18/19 09:22 Pepcid PO 20 mg BID TAMMIE Administration Fentanyl 50 mcg 07/12/19 15:09 Sublimaze IV Q10MIN PRN ANALGESIA Folic Acid 1 mg 07/05/19 10:00 07/18/19 09:22 Folvite PO 1 mg QDAY TAMMIE Administration Hydrophilic Ointment 1 applic 07/03/19 19:56 07/05/19 17:42 Vaseline Lip Therapy TP 1 applic Q2HR PRN Administration Dry Lips Norepinephrine 4 mg in 250 mls @ 7.5 mls/hr 07/03/19 23:00 07/18/19 05:30 Levophed Drip 4 Mg/Ns 250 Ml IV 4 mcg/min TITR TAMMIE 15 mls/hr Titration Protocol 2 MCG/MIN Fentanyl Citrate 2,000 mcg in 100 mls @ 4.25 mls/hr 07/12/19 16:00 07/18/19 07:56 Fentanyl Drip Premix IV 2 mcg/kg/hr TITR TAMMIE 8.5 mls/hr Titration Protocol 1 MCG/KG/HR Insulin Human Lispro 0 unit 07/07/19 12:00 07/18/19 06:03 Humalog SUB-Q Not Given Q6HR TAMMIE Protocol Levetiracetam 750 mg 07/06/19 11:00 07/18/19 09:23 Keppra FEEDTUBE 750 mg Q12HR TAMMIE Administration Metoprolol Tartrate 5 mg 07/12/19 15:08 07/12/19 15:30 Metoprolol IV 5 mg Q6HR PRN Administration Tachyarrhythmias Metoprolol Tartrate 12.5 mg 07/12/19 16:00 07/18/19 09:20 Metoprolol PO 12.5 mg BID TAMMIE Administration Morphine Sulfate 2 mg 07/04/19 04:24 07/13/19 08:06 Morphine IV 2 mg Q4H PRN Administration Pain, Moderate (4-6) Multi-Ingred Cream/Lotion/Oil/Oint 1 applic 07/03/19 19:56 07/05/19 13:19 Artificial Tears Ophth Oint OU 1 applic Q4HR PRN Administration Dry Eye(s) Naloxone HCl 0.1 mg 07/04/19 04:24 Naloxone IV Q2MIN PRN Res Rate </= 8 or 02 SAT < 92% Scopolamine 1 each 07/10/19 11:00 07/16/19 10:05 Transderm-Scop TD 1 each Q3D TAMMIE Administration Simple Syrup 15 ml 07/04/19 10:04 07/10/19 21:56 Simple Syrup FEEDTUBE 15 ml PRN PRN Administration Hypoglycemia Simple Syrup 30 ml 07/04/19 10:04 Simple Syrup FEEDTUBE PRN PRN Hypoglycemia Sodium Bicarbonate 325 mg 07/04/19 10:04 07/17/19 21:42 Sodium Bicarbonate FEEDTUBE 325 mg PRN PRN Administration For Clogged Feeding Tube Sodium Chloride 10 ml 07/04/19 10:00 07/18/19 09:25 Sodium Chloride Flush Syringe 10 Ml IV 10 ml BID TAMMIE Administration Sodium Chloride 10 ml 07/04/19 04:24 Sodium Chloride Flush Syringe 10 Ml IV PRN PRN LINE FLUSH Sodium Hypochlorite 1 applic 07/10/19 14:00 07/18/19 09:23 Dakin's Half Strength TP 1 applicatio BID TAMMIE Administration Nutrition/Malnutrition Assess - Dietary Evaluation Nutrition/Malnutrition Findings: Nutrition Notes Start: 07/04/19 09:17 Freq: Status: Active Protocol: Document 07/16/19 09:31 LM (Rec: 07/16/19 09:38 LM [email or web address]) Nutrition Notes Initial or Follow up Reassessment Current Diagnosis Acute Kidney Injury,COPD, Decubitus(Pressure Ulcer), Diabetes,Hypertension Other Pertinent Diagnosis COVID-19 (+), pneu, seizures, schizophrenia, Buttock and R foot PU, Current Diet Vital AF 1.2 at 65ml/hr Labs/Tests K 5.9 BUN 73 Cr 2.0 Pertinent Medications Levophed Height 5 ft 11 in Weight 83.4 kg [place] Body Weight (kg) 78.18 BMI 25.6 Weight change and time frame Wt change noted Weight Status Overweight Subjective/Other Information Pt's K elevated. Will change to Nepro. Burn Absent Trauma Absent Current % PO Negligible Minimum of two criteria No physical signs of malnutrition #2 Nutrition Diagnosis Increased nutrient needs ( specify in comment below) Diagnosis Progress(for reassessment Continues documentation) #1 Nutrition Diagnosis Inadequate oral intake Diagnosis Progress(for reassessment Continues documentation) Is patient on ventilator? Yes Is Patient Ambulatory and/or Out of Bed No REE-([place]-confined to bed) [phone] Additional Notes Protein: 109-182g (1.2-2g/kg) Fluid: 1 ml/kcal or per MD Nutrition Intervention Change Diet Order: TF Nutrition Support: Change to Nepro 1.8 at 45ml/hr Flush 200ml q4h Kcal 1,944 Protein (gm) 87 Fluid (mL) 785 Goal #1 TF tolerance Goal #2 Meet at least 75% of energy and protein needs Anticipated Discharge Needs: unable to determine at this time Follow-Up By: 07/18/19 Additional Comments F/U for new TF/ tolerance, K, Na labs
[2019-07-18] MEDS: fentaNYL DRIP Premix 2,000 MCG/100 ML BAG IV SCH (12:18)
--- NOTE | 2019-07-18 13:13 | Progress Note ---
Assessment and Plan Acute hypoxemic respiratory failure on MVS Severe sepsis with Shock. Bilateral Pneumonia. PUI coronavirus-19 infection. Acute possibly on chronic encephalopathy. Oropharyngeal dysphagia. Anemia. Decubitus ulcers Diabetes type 2. Hypertension. Leukocytosis. Anemia that is microcytic. Elevated serum transaminases. [id number] metabolic acidosis. Lactic acidosis. Severe protein-calorie malnutrition - keep set rate at 20/min - repeat ABG in am - continue fentanyl gtt for pain control / sedation - continue to wean supplemental oxygen for target O2 sat's > 90% acutely - Daily SAT's and SBT assessment as tolerated - VAP bundle addressed - continue lung protective strategies - continue bronchodilators with pulmonary hygiene per RT - wean per pulmonary driven protocols otherwise - prn Levophed for target MAP > 65 mmHg - continue airborne and contact COVID-19 precautions - COVID-19 test positive - complete anti-infectives and de-escalate per ID recommendations - continue wound care per WCT - sedation prn for target RASS 0 to -1 - accuchecks with glycemic control per SSI (While critically ill target blood glucose of 140-180 mg/dL; avoid hypoglycemia) - to avoid benzodiazepine's, reduce the possibility of delirium - prn analgesia per CPOT score - Maintenance of sleep-wake cycle, avoid delirium - continue enteral nutritional support at goal rate as tolerated - G.I. & VTE prophylaxis - PT/OT/ROM exercises - continue mobility protocols for pressure ulcer prophylaxis - Monitor hemodynamics closely - continue other care per attending / other consultants - discharge planning ongoing concurrently .... Re-evaluate in am & prn CONDITION: CRITICAL PROGNOSIS: GUARDED CODE STATUS: FULL CODE The high probability of a clinically significant, sudden or life-threatening deterioration of the [respiratory & cardiovascular] system(s) required my full and direct attention, intervention and personal management. The aggregate critical care time was [31] minutes without overlap. Time includes spent on; [x] Data Review and interpretation [x] Patient assessment and monitoring of vital signs [x] Documentation [x] Medication orders and management Subjective Date of service: 07/18/19 Principal diagnosis: Bilateral pneumonia, severe sepsis with septic shock, encephalopathy Interval history: Patient is seen today for: Ac hypoxemic Resp failure on MVS; Severe sepsis with Shock; Ivan. Pneumonia; PUI coronavirus-19 infection. Seen and examined at bedside; 24hour events reviewed; nursing and respiratory care staff consulted; no adverse overnight events reported to me; resting in bed; remains on MVS; still with increased work of breathing; AMS is persistent; not tolerating SBT's Objective Vital Signs - 12hr 07/18/19 07/18/19 07/18/19 01:15 01:30 01:45 Temperature Pulse Rate 108 H 108 H 108 H Pulse Rate [ From Monitor] Respiratory 16 16 16 Rate Blood Pressure 102/59 97/54 98/57 O2 Sat by Pulse 100 99 100 Oximetry 07/18/19 07/18/19 07/18/19 02:00 02:15 02:30 Temperature Pulse Rate 108 H 107 H 108 H Pulse Rate [ From Monitor] Respiratory 16 15 16 Rate Blood Pressure 103/59 110/60 103/59 O2 Sat by Pulse 99 99 100 Oximetry 07/18/19 07/18/19 07/18/19 02:45 03:00 03:16 Temperature Pulse Rate 109 H 108 H 110 H Pulse Rate [ From Monitor] Respiratory 16 20 10 L Rate Blood Pressure 108/63 114/70 107/55 O2 Sat by Pulse 100 100 100 Oximetry 07/18/19 07/18/19 07/18/19 03:30 03:35 03:45 Temperature Pulse Rate 108 H 103 H 107 H Pulse Rate [ From Monitor] Respiratory 16 14 Rate Blood Pressure 103/62 103/62 104/61 O2 Sat by Pulse 100 100 100 Oximetry 07/18/19 07/18/19 07/18/19 04:00 04:15 04:30 Temperature 97.6 F Pulse Rate 107 H 107 H 105 H Pulse Rate [ 107 H From Monitor] Respiratory 17 13 16 Rate Blood Pressure 98/64 107/66 107/67 O2 Sat by Pulse 100 100 100 Oximetry 07/18/19 07/18/19 07/18/19 04:45 05:00 05:15 Temperature Pulse Rate 105 H 105 H 104 H Pulse Rate [ From Monitor] Respiratory 16 16 15 Rate Blood Pressure 108/69 117/72 119/70 O2 Sat by Pulse 100 100 100 Oximetry 07/18/19 07/18/19 07/18/19 05:30 05:46 06:00 Temperature Pulse Rate 103 H 101 H 102 H Pulse Rate [ From Monitor] Respiratory 16 16 16 Rate Blood Pressure 122/74 97/57 99/63 O2 Sat by Pulse 100 100 100 Oximetry 0407/18/19 07/18/19 06:15 06:30 06:45 Temperature Pulse Rate 102 H 102 H 101 H Pulse Rate [ From Monitor] Respiratory 16 16 16 Rate Blood Pressure 95/57 95/58 102/61 O2 Sat by Pulse 100 100 98 Oximetry 07/18/19 07/18/19 07/18/19 07:00 07:15 07:30 Temperature Pulse Rate 100 H 101 H 102 H Pulse Rate [ From Monitor] Respiratory 16 16 16 Rate Blood Pressure 98/57 101/60 100/61 O2 Sat by Pulse 100 100 95 Oximetry 07/18/19 07/18/19 07/18/19 07:45 08:00 08:15 Temperature 96.6 F L Pulse Rate 101 H 103 H 98 H Pulse Rate [ 107 H From Monitor] Respiratory 16 16 16 Rate Blood Pressure 94/54 102/63 107/64 O2 Sat by Pulse 100 100 98 Oximetry 07/18/19 07/18/19 07/18/19 08:30 08:36 08:45 Temperature Pulse Rate 98 H 98 H 98 H Pulse Rate [ From Monitor] Respiratory 16 16 Rate Blood Pressure 105/65 107/64 113/68 O2 Sat by Pulse 100 98 95 Oximetry 07/18/19 07/18/19 07/18/19 09:00 09:16 09:30 Temperature Pulse Rate 100 H 103 H 102 H Pulse Rate [ From Monitor] Respiratory 16 16 19 Rate Blood Pressure 106/64 90/52 109/74 O2 Sat by Pulse 100 100 100 Oximetry 07/18/19 07/18/19 07/18/19 09:45 10:00 10:15 Temperature Pulse Rate 95 H 93 H 93 H Pulse Rate [ From Monitor] Respiratory 16 16 16 Rate Blood Pressure 101/63 106/63 101/62 O2 Sat by Pulse 93 94 96 Oximetry 07/18/19 07/18/19 07/18/19 10:30 10:45 11:00 Temperature Pulse Rate 91 H 92 H 90 Pulse Rate [ From Monitor] Respiratory 16 16 16 Rate Blood Pressure 92/57 97/62 96/64 O2 Sat by Pulse 100 97 96 Oximetry 07/18/19 07/18/19 07/18/19 11:16 11:30 12:46 Temperature Pulse Rate 88 90 90 Pulse Rate [ From Monitor] Respiratory 16 16 Rate Blood Pressure 68/42 81/52 81/52 O2 Sat by Pulse 100 99 99 Oximetry Constitutional: appears uncomfortable, other (eelderly and chronically ill looking AAM, normocep[krystina;ic with mildly increased respiratory effort at rest) Eyes: non-icteric ENT: oropharynx moist, other (ETT 24 cm RUTH) Neck: supple, no lymphadenopathy, no JVD Effort: mildly labored Ascultation: Bilateral: diminished breath sounds, rhonchi Percussion: Bilateral: not dull Cardiovascular: regular rate and rhythm Gastrointestinal: normoactive bowel sounds, soft, non-tender, non-distended, other (+ PEG tube with mild TF leakage) Integumentary: decubitus ulcer Extremities: no cyanosis, no edema, pink and warm, pulses normal Neurologic: unable to assess Psychiatric: other (Unable to assess re: AMS) CBC and BMP: 07/19/19 08:45 07/20/19 04:39 ABG, PT/INR, D-dimer: ABG ABG pH 7.294 pH Units (7.350-7.450) L 07/18/19 02:30 ABG pCO2 50.4 mm Hg 07/18/19 02:30 ABG pO2 119.2 mm Hg (80.0-90.0) H 07/18/19 02:30 ABG O2 Saturation 98.0 % (95.0-99.0) 07/18/19 02:30 PT/INR, D-dimer PT 16.0 Sec. (12.2-14.9) H 07/03/19 22:20 INR 1.26 (0.87-1.13) H 07/03/19 22:20 D-Dimer 1142.18 ng/mlDDU (0-234) H 07/08/19 00:45 Abnormal lab findings: Abnormal Labs 07/03/19 07/03/19 07/03/19 19:57 21:10 21:13 WBC RBC Hgb Hct MCV MCH MCHC RDW Plt Count Lymph % (Auto) Stark % (Auto) Lymph # Stark # Baso # Seg Neutrophils % Seg Neuts % (Manual) Lymphocytes % (Manual) Seg Neutrophils # Seg Neutrophils # Man Lymphocytes # (Manual) PT INR D-Dimer ABG pH 7.238 L ABG pO2 210.8 H ABG HCO3 15.4 L ABG O2 Saturation 99.2 H ABG Base Excess -11.1 L ABG Hemoglobin 8.0 L Oxyhemoglobin Sodium 124 L Potassium Chloride 92.9 L Carbon Dioxide 10 L BUN 23 H Creatinine 0.5 L Glucose 118 H POC Glucose Lactic Acid Calcium 7.0 L Magnesium Iron TIBC Ferritin AST 70 H ALT 88 H Lactate Dehydrogenase Troponin T 0.032 H C-Reactive Protein Total Protein 5.0 L Albumin 1.8 L Cholesterol 47 L LDL Cholesterol Direct 25 L HDL Cholesterol 20 L Urine WBC (Auto) 12.0 H Vancomycin Trough Coronavirus (PCR) Crossmatch 07/03/19 07/03/19 07/03/19 22:20 22:20 22:20 WBC 30.5 H RBC 2.96 L Hgb 7.7 L Hct 23.9 L MCV 81 L MCH 26 L MCHC RDW 18.6 H Plt Count 459 H Lymph % (Auto) Stark % (Auto) Lymph # Stark # Baso # Seg Neutrophils % Seg Neuts % (Manual) 93.0 H Lymphocytes % (Manual) 0.5 L Seg Neutrophils # Seg Neutrophils # Man 28.4 H Lymphocytes # (Manual) 0.2 L PT 16.0 H INR 1.26 H D-Dimer ABG pH ABG pO2 ABG HCO3 ABG O2 Saturation ABG Base Excess ABG Hemoglobin Oxyhemoglobin Sodium Potassium Chloride Carbon Dioxide BUN Creatinine Glucose POC Glucose Lactic Acid 6.90 H* Calcium Magnesium Iron TIBC Ferritin AST ALT Lactate Dehydrogenase Troponin T C-Reactive Protein Total Protein Albumin Cholesterol LDL Cholesterol Direct HDL Cholesterol Urine WBC (Auto) Vancomycin Trough Coronavirus (PCR) Crossmatch 07/03/19 07/04/19 07/04/19 23:58 05:15 07:05 WBC 17.1 H RBC 3.22 L Hgb 8.3 L Hct 25.4 L MCV 79 L MCH 26 L MCHC RDW 18.6 H Plt Count Lymph % (Auto) Stark % (Auto) Lymph # Stark # Baso # Seg Neutrophils % Seg Neuts % (Manual) 74.0 H Lymphocytes % (Manual) 0 L Seg Neutrophils # Seg Neutrophils # Man 12.7 H Lymphocytes # (Manual) 0.0 L PT INR D-Dimer ABG pH 7.310 L ABG pO2 73.2 L ABG HCO3 17.8 L ABG O2 Saturation 93.8 L ABG Base Excess -7.7 L ABG Hemoglobin 9.6 L Oxyhemoglobin 92.3 L Sodium Potassium Chloride Carbon Dioxide BUN Creatinine Glucose POC Glucose Lactic Acid 7.10 H* Calcium Magnesium Iron TIBC Ferritin AST ALT Lactate Dehydrogenase Troponin T C-Reactive Protein Total Protein Albumin Cholesterol LDL Cholesterol Direct HDL Cholesterol Urine WBC (Auto) Vancomycin Trough Coronavirus (PCR) Crossmatch 07/04/19 07/04/19 07/04/19 07:05 07:05 07:05 WBC RBC Hgb Hct MCV MCH MCHC RDW Plt Count Lymph % (Auto) Stark % (Auto) Lymph # Stark # Baso # Seg Neutrophils % Seg Neuts % (Manual) Lymphocytes % (Manual) Seg Neutrophils # Seg Neutrophils # Man Lymphocytes # (Manual) PT INR D-Dimer ABG pH ABG pO2 ABG HCO3 ABG O2 Saturation ABG Base Excess ABG Hemoglobin Oxyhemoglobin Sodium 120 L Potassium 5.1 H Chloride 90.0 L Carbon Dioxide 14 L BUN 26 H Creatinine 0.5 L Glucose POC Glucose Lactic Acid 3.30 H* Calcium 8.0 L Magnesium Iron 9 L TIBC 97 L Ferritin AST 73 H ALT 91 H Lactate Dehydrogenase Troponin T C-Reactive Protein Total Protein 5.5 L Albumin 2.0 L Cholesterol LDL Cholesterol Direct HDL Cholesterol Urine WBC (Auto) Vancomycin Trough Coronavirus (PCR) Crossmatch 07/04/19 07/04/19 07/04/19 09:39 09:39 09:39 WBC RBC Hgb Hct MCV MCH MCHC RDW Plt Count Lymph % (Auto) Stark % (Auto) Lymph # Stark # Baso # Seg Neutrophils % Seg Neuts % (Manual) Lymphocytes % (Manual) Seg Neutrophils # Seg Neutrophils # Man Lymphocytes # (Manual) PT INR D-Dimer 1419.14 H ABG pH ABG pO2 ABG HCO3 ABG O2 Saturation ABG Base Excess ABG Hemoglobin Oxyhemoglobin Sodium Potassium Chloride Carbon Dioxide BUN Creatinine Glucose POC Glucose Lactic Acid Calcium Magnesium Iron TIBC Ferritin 1719.0 H AST ALT Lactate Dehydrogenase 234 H Troponin T C-Reactive Protein 15.50 H Total Protein Albumin Cholesterol LDL Cholesterol Direct HDL Cholesterol Urine WBC (Auto) Vancomycin Trough Coronavirus (PCR) Crossmatch 07/04/19 07/04/19 07/04/19 10:09 18:08 18:28 WBC RBC Hgb Hct MCV MCH MCHC RDW Plt Count Lymph % (Auto) Stark % (Auto) Lymph # Stark # Baso # Seg Neutrophils % Seg Neuts % (Manual) Lymphocytes % (Manual) Seg Neutrophils # Seg Neutrophils # Man Lymphocytes # (Manual) PT INR D-Dimer ABG pH ABG pO2 ABG HCO3 ABG O2 Saturation ABG Base Excess ABG Hemoglobin Oxyhemoglobin Sodium 117 L* Potassium 5.6 H Chloride 90.3 L Carbon Dioxide 16 L BUN 28 H Creatinine 0.5 L Glucose 58 L POC Glucose 65 L Lactic Acid Calcium 8.2 L Magnesium Iron TIBC Ferritin AST ALT Lactate Dehydrogenase Troponin T C-Reactive Protein Total Protein Albumin Cholesterol LDL Cholesterol Direct HDL Cholesterol Urine WBC (Auto) Vancomycin Trough Coronavirus (PCR) Positive A Crossmatch 07/04/19 07/04/19 07/04/19 23:45 Unknown Unknown WBC RBC Hgb Hct MCV MCH MCHC RDW Plt Count Lymph % (Auto) Stark % (Auto) Lymph # Stark # Baso # Seg Neutrophils % Seg Neuts % (Manual) Lymphocytes % (Manual) Seg Neutrophils # Seg Neutrophils # Man Lymphocytes # (Manual) PT INR D-Dimer 759.77 H ABG pH ABG pO2 ABG HCO3 ABG O2 Saturation ABG Base Excess ABG Hemoglobin Oxyhemoglobin Sodium 122 L Potassium Chloride 93.0 L Carbon Dioxide 19 L BUN 27 H Creatinine 0.5 L Glucose POC Glucose Lactic Acid Calcium 8.3 L Magnesium Iron TIBC Ferritin 1301.0 H AST ALT Lactate Dehydrogenase Troponin T C-Reactive Protein Total Protein Albumin Cholesterol LDL Cholesterol Direct HDL Cholesterol Urine WBC (Auto) Vancomycin Trough Coronavirus (PCR) Crossmatch 07/04/19 07/05/19 07/05/19 Unknown 03:20 04:00 WBC RBC Hgb Hct MCV MCH MCHC RDW Plt Count Lymph % (Auto) Stark % (Auto) Lymph # Stark # Baso # Seg Neutrophils % Seg Neuts % (Manual) Lymphocytes % (Manual) Seg Neutrophils # Seg Neutrophils # Man Lymphocytes # (Manual) PT INR D-Dimer ABG pH ABG pO2 60.6 L ABG HCO3 ABG O2 Saturation 93.5 L ABG Base Excess -2.4 L ABG Hemoglobin 6.9 L Oxyhemoglobin 92.0 L Sodium 125 L Potassium Chloride 92.6 L Carbon Dioxide 19 L BUN 24 H Creatinine 0.6 L Glucose POC Glucose Lactic Acid Calcium 8.2 L Magnesium 1.40 L Iron TIBC Ferritin AST ALT Lactate Dehydrogenase 242 H Troponin T C-Reactive Protein 16.70 H Total Protein Albumin Cholesterol LDL Cholesterol Direct HDL Cholesterol Urine WBC (Auto) Vancomycin Trough Coronavirus (PCR) Crossmatch 07/05/19 07/05/19 07/05/19 10:11 16:15 17:54 WBC 46.4 H* RBC 2.77 L Hgb 7.2 L Hct 21.9 L MCV 79 L MCH 26 L MCHC RDW 19.0 H Plt Count Lymph % (Auto) Stark % (Auto) Lymph # Stark # Baso # Seg Neutrophils % Seg Neuts % (Manual) 82.0 H Lymphocytes % (Manual) 1.0 L Seg Neutrophils # Seg Neutrophils # Man 38.0 H Lymphocytes # (Manual) 0.5 L PT INR D-Dimer ABG pH ABG pO2 ABG HCO3 ABG O2 Saturation ABG Base Excess ABG Hemoglobin Oxyhemoglobin Sodium Potassium Chloride Carbon Dioxide BUN Creatinine Glucose POC Glucose 69 L Lactic Acid Calcium Magnesium Iron TIBC Ferritin AST ALT Lactate Dehydrogenase Troponin T C-Reactive Protein Total Protein Albumin Cholesterol LDL Cholesterol Direct HDL Cholesterol Urine WBC (Auto) Vancomycin Trough 23.2 H Coronavirus (PCR) Crossmatch 07/05/19 07/06/19 07/06/19 19:58 00:27 00:27 WBC RBC Hgb Hct MCV MCH MCHC RDW Plt Count Lymph % (Auto) Stark % (Auto) Lymph # Stark # Baso # Seg Neutrophils % Seg Neuts % (Manual) Lymphocytes % (Manual) Seg Neutrophils # Seg Neutrophils # Man Lymphocytes # (Manual) PT INR D-Dimer 1333.22 H ABG pH ABG pO2 ABG HCO3 ABG O2 Saturation ABG Base Excess ABG Hemoglobin Oxyhemoglobin Sodium 127 L Potassium Chloride Carbon Dioxide BUN Creatinine Glucose POC Glucose Lactic Acid Calcium Magnesium Iron TIBC Ferritin 977.1 H AST ALT Lactate Dehydrogenase Troponin T C-Reactive Protein Total Protein Albumin Cholesterol LDL Cholesterol Direct HDL Cholesterol Urine WBC (Auto) Vancomycin Trough Coronavirus (PCR) Crossmatch 07/06/19 07/06/19 07/06/19 00:27 02:00 02:56 WBC RBC Hgb Hct MCV MCH MCHC RDW Plt Count Lymph % (Auto) Stark % (Auto) Lymph # Stark # Baso # Seg Neutrophils % Seg Neuts % (Manual) Lymphocytes % (Manual) Seg Neutrophils # Seg Neutrophils # Man Lymphocytes # (Manual) PT INR D-Dimer ABG pH ABG pO2 70.3 L ABG HCO3 ABG O2 Saturation 94.8 L ABG Base Excess ABG Hemoglobin 8.0 L Oxyhemoglobin 93.2 L Sodium Potassium Chloride Carbon Dioxide BUN Creatinine Glucose POC Glucose 117 H Lactic Acid Calcium Magnesium Iron TIBC Ferritin AST ALT Lactate Dehydrogenase 236 H Troponin T C-Reactive Protein 22.90 H Total Protein Albumin Cholesterol LDL Cholesterol Direct HDL Cholesterol Urine WBC (Auto) Vancomycin Trough Coronavirus (PCR) Crossmatch 07/06/19 07/06/19 07/06/19 03:49 03:49 07:40 WBC 38.8 H RBC 2.51 L Hgb 6.7 L Hct 19.9 L* MCV 79 L MCH 27 L MCHC RDW 19.2 H Plt Count Lymph % (Auto) Stark % (Auto) Lymph # Stark # Baso # Seg Neutrophils % Seg Neuts % (Manual) 90.5 H Lymphocytes % (Manual) 1.0 L Seg Neutrophils # Seg Neutrophils # Man 35.1 H Lymphocytes # (Manual) 0.4 L PT INR D-Dimer ABG pH ABG pO2 ABG HCO3 ABG O2 Saturation ABG Base Excess ABG Hemoglobin Oxyhemoglobin Sodium 131 L Potassium Chloride 96.9 L Carbon Dioxide 18 L BUN 23 H Creatinine 0.5 L Glucose POC Glucose Lactic Acid Calcium 8.0 L Magnesium Iron TIBC Ferritin AST ALT Lactate Dehydrogenase Troponin T C-Reactive Protein Total Protein Albumin Cholesterol LDL Cholesterol Direct HDL Cholesterol Urine WBC (Auto) Vancomycin Trough Coronavirus (PCR) Crossmatch See Detail 07/06/19 07/06/19 07/06/19 12:38 14:39 20:00 WBC RBC Hgb Hct MCV MCH MCHC RDW Plt Count Lymph % (Auto) Stark % (Auto) Lymph # Stark # Baso # Seg Neutrophils % Seg Neuts % (Manual) Lymphocytes % (Manual) Seg Neutrophils # Seg Neutrophils # Man Lymphocytes # (Manual) PT INR D-Dimer ABG pH ABG pO2 ABG HCO3 ABG O2 Saturation ABG Base Excess ABG Hemoglobin Oxyhemoglobin Sodium Potassium Chloride Carbon Dioxide BUN Creatinine Glucose POC Glucose 112 H 111 H 140 H Lactic Acid Calcium Magnesium Iron TIBC Ferritin AST ALT Lactate Dehydrogenase Troponin T C-Reactive Protein Total Protein Albumin Cholesterol LDL Cholesterol Direct HDL Cholesterol Urine WBC (Auto) Vancomycin Trough Coronavirus (PCR) Crossmatch 07/06/19 07/06/19 07/07/19 22:43 22:56 02:20 WBC RBC Hgb 7.9 L Hct 23.1 L MCV MCH MCHC RDW Plt Count Lymph % (Auto) Stark % (Auto) Lymph # Stark # Baso # Seg Neutrophils % Seg Neuts % (Manual) Lymphocytes % (Manual) Seg Neutrophils # Seg Neutrophils # Man Lymphocytes # (Manual) PT INR D-Dimer ABG pH ABG pO2 ABG HCO3 ABG O2 Saturation ABG Base Excess ABG Hemoglobin Oxyhemoglobin Sodium Potassium Chloride Carbon Dioxide BUN Creatinine Glucose POC Glucose 122 H 149 H Lactic Acid Calcium Magnesium Iron TIBC Ferritin AST ALT Lactate Dehydrogenase Troponin T C-Reactive Protein Total Protein Albumin Cholesterol LDL Cholesterol Direct HDL Cholesterol Urine WBC (Auto) Vancomycin Trough Coronavirus (PCR) Crossmatch 07/07/19 07/07/19 07/07/19 04:35 05:27 05:34 WBC 23.1 H RBC 3.00 L Hgb 8.1 L Hct 24.2 L MCV 81 L MCH 27 L MCHC RDW 20.6 H Plt Count Lymph % (Auto) Stark % (Auto) Lymph # Stark # Baso # Seg Neutrophils % Seg Neuts % (Manual) 90.0 H Lymphocytes % (Manual) 2.0 L Seg Neutrophils # Seg Neutrophils # Man 20.8 H Lymphocytes # (Manual) 0.5 L PT INR D-Dimer ABG pH ABG pO2 65.8 L ABG HCO3 ABG O2 Saturation 92.2 L ABG Base Excess ABG Hemoglobin 8.3 L Oxyhemoglobin 90.6 L Sodium Potassium Chloride Carbon Dioxide BUN Creatinine Glucose POC Glucose 132 H Lactic Acid Calcium Magnesium Iron TIBC Ferritin AST ALT Lactate Dehydrogenase Troponin T C-Reactive Protein Total Protein Albumin Cholesterol LDL Cholesterol Direct HDL Cholesterol Urine WBC (Auto) Vancomycin Trough Coronavirus (PCR) Crossmatch 07/07/19 07/07/19 07/07/19 05:34 11:50 15:58 WBC RBC Hgb 8.1 L Hct 24.2 L MCV MCH MCHC RDW Plt Count Lymph % (Auto) Stark % (Auto) Lymph # Stark # Baso # Seg Neutrophils % Seg Neuts % (Manual) Lymphocytes % (Manual) Seg Neutrophils # Seg Neutrophils # Man Lymphocytes # (Manual) PT INR D-Dimer ABG pH ABG pO2 ABG HCO3 ABG O2 Saturation ABG Base Excess ABG Hemoglobin Oxyhemoglobin Sodium 135 L Potassium 3.3 L Chloride Carbon Dioxide 20 L BUN 27 H Creatinine 0.6 L Glucose 121 H POC Glucose 123 H Lactic Acid Calcium 8.0 L Magnesium Iron TIBC Ferritin AST ALT Lactate Dehydrogenase Troponin T C-Reactive Protein Total Protein Albumin Cholesterol LDL Cholesterol Direct HDL Cholesterol Urine WBC (Auto) Vancomycin Trough Coronavirus (PCR) Crossmatch 07/07/19 07/07/19 07/07/19 17:42 22:00 23:53 WBC RBC Hgb 8.0 L Hct 23.4 L MCV MCH MCHC RDW Plt Count Lymph % (Auto) Stark % (Auto) Lymph # Stark # Baso # Seg Neutrophils % Seg Neuts % (Manual) Lymphocytes % (Manual) Seg Neutrophils # Seg Neutrophils # Man Lymphocytes # (Manual) PT INR D-Dimer ABG pH ABG pO2 ABG HCO3 ABG O2 Saturation ABG Base Excess ABG Hemoglobin Oxyhemoglobin Sodium Potassium Chloride Carbon Dioxide BUN Creatinine Glucose POC Glucose 107 H 117 H Lactic Acid Calcium Magnesium Iron TIBC Ferritin AST ALT Lactate Dehydrogenase Troponin T C-Reactive Protein Total Protein Albumin Cholesterol LDL Cholesterol Direct HDL Cholesterol Urine WBC (Auto) Vancomycin Trough Coronavirus (PCR) Crossmatch 07/08/19 07/08/19 07/08/19 00:45 00:45 00:45 WBC RBC Hgb Hct MCV MCH MCHC RDW Plt Count Lymph % (Auto) Stark % (Auto) Lymph # Stark # Baso # Seg Neutrophils % Seg Neuts % (Manual) Lymphocytes % (Manual) Seg Neutrophils # Seg Neutrophils # Man Lymphocytes # (Manual) PT INR D-Dimer 1142.18 H ABG pH ABG pO2 ABG HCO3 ABG O2 Saturation ABG Base Excess ABG Hemoglobin Oxyhemoglobin Sodium Potassium Chloride Carbon Dioxide BUN Creatinine Glucose POC Glucose Lactic Acid Calcium Magnesium Iron TIBC Ferritin 839.0 H AST ALT Lactate Dehydrogenase 253 H Troponin T C-Reactive Protein 18.90 H Total Protein Albumin Cholesterol LDL Cholesterol Direct HDL Cholesterol Urine WBC (Auto) Vancomycin Trough Coronavirus (PCR) Crossmatch 07/08/19 07/08/19 07/08/19 04:30 05:11 12:02 WBC RBC Hgb Hct MCV MCH MCHC RDW Plt Count Lymph % (Auto) Stark % (Auto) Lymph # Stark # Baso # Seg Neutrophils % Seg Neuts % (Manual) Lymphocytes % (Manual) Seg Neutrophils # Seg Neutrophils # Man Lymphocytes # (Manual) PT INR D-Dimer ABG pH ABG pO2 66.0 L ABG HCO3 ABG O2 Saturation 92.3 L ABG Base Excess ABG Hemoglobin 7.7 L Oxyhemoglobin 90.7 L Sodium Potassium Chloride Carbon Dioxide BUN Creatinine Glucose POC Glucose 108 H 153 H Lactic Acid Calcium Magnesium Iron TIBC Ferritin AST ALT Lactate Dehydrogenase Troponin T C-Reactive Protein Total Protein Albumin Cholesterol LDL Cholesterol Direct HDL Cholesterol Urine WBC (Auto) Vancomycin Trough Coronavirus (PCR) Crossmatch 07/08/19 07/08/19 07/08/19 16:15 18:22 23:35 WBC RBC Hgb Hct MCV MCH MCHC RDW Plt Count Lymph % (Auto) Stark % (Auto) Lymph # Stark # Baso # Seg Neutrophils % Seg Neuts % (Manual) Lymphocytes % (Manual) Seg Neutrophils # Seg Neutrophils # Man Lymphocytes # (Manual) PT INR D-Dimer ABG pH ABG pO2 ABG HCO3 ABG O2 Saturation ABG Base Excess ABG Hemoglobin Oxyhemoglobin Sodium 134 L Potassium 3.3 L Chloride Carbon Dioxide 21 L BUN 27 H Creatinine 0.6 L Glucose 146 H POC Glucose 134 H 133 H Lactic Acid Calcium Magnesium Iron TIBC Ferritin AST ALT Lactate Dehydrogenase Troponin T C-Reactive Protein Total Protein Albumin Cholesterol LDL Cholesterol Direct HDL Cholesterol Urine WBC (Auto) Vancomycin Trough Coronavirus (PCR) Crossmatch 07/09/19 07/09/19 07/09/19 04:30 04:30 05:00 WBC 18.9 H RBC 2.77 L Hgb 7.4 L Hct 22.8 L MCV 82 L MCH 27 L MCHC RDW 20.9 H Plt Count 130 L Lymph % (Auto) Stark % (Auto) Lymph # Stark # Baso # Seg Neutrophils % Seg Neuts % (Manual) 84.0 H Lymphocytes % (Manual) 0 L Seg Neutrophils # Seg Neutrophils # Man 15.9 H Lymphocytes # (Manual) 0.0 L PT INR D-Dimer ABG pH ABG pO2 ABG HCO3 ABG O2 Saturation ABG Base Excess ABG Hemoglobin Oxyhemoglobin Sodium Potassium 3.1 L Chloride Carbon Dioxide BUN 26 H Creatinine 0.5 L Glucose 125 H POC Glucose 155 H Lactic Acid Calcium Magnesium Iron TIBC Ferritin AST ALT Lactate Dehydrogenase Troponin T C-Reactive Protein Total Protein Albumin Cholesterol LDL Cholesterol Direct HDL Cholesterol Urine WBC (Auto) Vancomycin Trough Coronavirus (PCR) Crossmatch 07/09/19 07/09/19 07/09/19 05:55 12:22 17:50 WBC RBC Hgb Hct MCV MCH MCHC RDW Plt Count Lymph % (Auto) Stark % (Auto) Lymph # Stark # Baso # Seg Neutrophils % Seg Neuts % (Manual) Lymphocytes % (Manual) Seg Neutrophils # Seg Neutrophils # Man Lymphocytes # (Manual) PT INR D-Dimer ABG pH ABG pO2 62.8 L ABG HCO3 ABG O2 Saturation ABG Base Excess ABG Hemoglobin 6.1 L Oxyhemoglobin 93.9 L Sodium Potassium Chloride Carbon Dioxide BUN Creatinine Glucose POC Glucose 115 H 133 H Lactic Acid Calcium Magnesium Iron TIBC Ferritin AST ALT Lactate Dehydrogenase Troponin T C-Reactive Protein Total Protein Albumin Cholesterol LDL Cholesterol Direct HDL Cholesterol Urine WBC (Auto) Vancomycin Trough Coronavirus (PCR) Crossmatch 07/10/19 07/10/19 07/10/19 00:38 04:00 04:00 WBC RBC Hgb Hct MCV MCH MCHC RDW Plt Count Lymph % (Auto) Stark % (Auto) Lymph # Stark # Baso # Seg Neutrophils % Seg Neuts % (Manual) Lymphocytes % (Manual) Seg Neutrophils # Seg Neutrophils # Man Lymphocytes # (Manual) PT INR D-Dimer ABG pH ABG pO2 ABG HCO3 ABG O2 Saturation ABG Base Excess ABG Hemoglobin Oxyhemoglobin Sodium Potassium Chloride 107.9 H Carbon Dioxide BUN 26 H Creatinine 0.4 L Glucose 137 H POC Glucose 122 H Lactic Acid Calcium Magnesium 1.50 L Iron TIBC Ferritin AST ALT Lactate Dehydrogenase 277 H Troponin T C-Reactive Protein 15.10 H Total Protein Albumin Cholesterol LDL Cholesterol Direct HDL Cholesterol Urine WBC (Auto) Vancomycin Trough Coronavirus (PCR) Crossmatch 07/10/19 07/10/19 07/10/19 04:07 05:21 17:25 WBC RBC Hgb Hct MCV MCH MCHC RDW Plt Count Lymph % (Auto) Stark % (Auto) Lymph # Stark # Baso # Seg Neutrophils % Seg Neuts % (Manual) Lymphocytes % (Manual) Seg Neutrophils # Seg Neutrophils # Man Lymphocytes # (Manual) PT INR D-Dimer ABG pH ABG pO2 65.6 L ABG HCO3 26.3 H ABG O2 Saturation ABG Base Excess ABG Hemoglobin 6.7 L Oxyhemoglobin Sodium Potassium Chloride Carbon Dioxide BUN Creatinine Glucose POC Glucose 144 H 113 H Lactic Acid Calcium Magnesium Iron TIBC Ferritin AST ALT Lactate Dehydrogenase Troponin T C-Reactive Protein Total Protein Albumin Cholesterol LDL Cholesterol Direct HDL Cholesterol Urine WBC (Auto) Vancomycin Trough Coronavirus (PCR) Crossmatch 07/11/19 07/11/19 07/11/19 00:07 05:14 05:25 WBC RBC Hgb Hct MCV MCH MCHC RDW Plt Count Lymph % (Auto) [place] % (Auto) Lymph # Stark # Baso # Seg Neutrophils % Seg Neuts % (Manual) Lymphocytes % (Manual) Seg Neutrophils # Seg Neutrophils # Man Lymphocytes # (Manual) PT INR D-Dimer ABG pH ABG pO2 ABG HCO3 ABG O2 Saturation ABG Base Excess ABG Hemoglobin 5.8 L Oxyhemoglobin Sodium Potassium Chloride 108.0 H Carbon Dioxide BUN 26 H Creatinine 0.4 L Glucose 110 H POC Glucose 121 H Lactic Acid Calcium Magnesium Iron TIBC Ferritin AST ALT Lactate Dehydrogenase Troponin T C-Reactive Protein Total Protein Albumin Cholesterol LDL Cholesterol Direct HDL Cholesterol Urine WBC (Auto) Vancomycin Trough Coronavirus (PCR) Crossmatch 07/11/19 07/11/19 07/11/19 12:27 18:00 23:42 WBC RBC Hgb Hct MCV MCH MCHC RDW Plt Count Lymph % (Auto) [place] % (Auto) Lymph # [place] # Baso # Seg Neutrophils % Seg Neuts % (Manual) Lymphocytes % (Manual) Seg Neutrophils # Seg Neutrophils # Man Lymphocytes # (Manual) PT INR D-Dimer ABG pH ABG pO2 ABG HCO3 ABG O2 Saturation ABG Base Excess ABG Hemoglobin Oxyhemoglobin Sodium Potassium Chloride Carbon Dioxide BUN Creatinine Glucose POC Glucose 158 H 141 H 142 H Lactic Acid Calcium Magnesium Iron TIBC Ferritin AST ALT Lactate Dehydrogenase Troponin T C-Reactive Protein Total Protein Albumin Cholesterol LDL Cholesterol Direct HDL Cholesterol Urine WBC (Auto) Vancomycin Trough Coronavirus (PCR) Crossmatch 07/12/19 07/12/19 07/12/19 04:46 04:46 05:23 WBC 23.6 H RBC 2.51 L Hgb 6.7 L Hct 20.8 L MCV 83 L MCH 27 L MCHC RDW 20.3 H Plt Count Lymph % (Auto) [place] % (Auto) Lymph # [place] # Baso # Seg Neutrophils % Seg Neuts % (Manual) 94.0 H Lymphocytes % (Manual) 4.0 L Seg Neutrophils # Seg Neutrophils # Man 22.2 H Lymphocytes # (Manual) 0.9 L PT INR D-Dimer ABG pH ABG pO2 ABG HCO3 ABG O2 Saturation ABG Base Excess ABG Hemoglobin Oxyhemoglobin Sodium Potassium Chloride 107.1 H Carbon Dioxide BUN 25 H Creatinine 0.4 L Glucose 122 H POC Glucose 118 H Lactic Acid Calcium Magnesium Iron TIBC Ferritin AST ALT Lactate Dehydrogenase Troponin T C-Reactive Protein Total Protein Albumin Cholesterol LDL Cholesterol Direct HDL Cholesterol Urine WBC (Auto) Vancomycin Trough Coronavirus (PCR) Crossmatch 07/12/19 07/12/19 07/12/19 08:49 11:36 18:15 WBC RBC Hgb Hct MCV MCH MCHC RDW Plt Count Lymph % (Auto) [place] % (Auto) Lymph # [place] # Baso # Seg Neutrophils % Seg Neuts % (Manual) Lymphocytes % (Manual) Seg Neutrophils # Seg Neutrophils # Man Lymphocytes # (Manual) PT INR D-Dimer ABG pH ABG pO2 ABG HCO3 ABG O2 Saturation ABG Base Excess ABG Hemoglobin Oxyhemoglobin Sodium Potassium Chloride Carbon Dioxide BUN Creatinine Glucose POC Glucose 124 H 110 H Lactic Acid Calcium Magnesium Iron TIBC Ferritin AST ALT Lactate Dehydrogenase Troponin T C-Reactive Protein Total Protein Albumin Cholesterol LDL Cholesterol Direct HDL Cholesterol Urine WBC (Auto) Vancomycin Trough Coronavirus (PCR) Crossmatch See Detail 07/12/19 07/13/19 07/13/19 23:16 05:26 06:50 WBC 23.9 H RBC 2.58 L Hgb 6.9 L Hct 21.5 L MCV 83 L MCH 27 L MCHC RDW 19.0 H Plt Count Lymph % (Auto) [place] % (Auto) Lymph # [place] # Baso # Seg Neutrophils % Seg Neuts % (Manual) 96.0 H Lymphocytes % (Manual) 3.0 L Seg Neutrophils # Seg Neutrophils # Man 22.9 H Lymphocytes # (Manual) 0.7 L PT INR D-Dimer ABG pH ABG pO2 ABG HCO3 ABG O2 Saturation ABG Base Excess ABG Hemoglobin Oxyhemoglobin Sodium Potassium Chloride Carbon Dioxide BUN Creatinine Glucose POC Glucose 108 H 126 H Lactic Acid Calcium Magnesium Iron TIBC Ferritin AST ALT Lactate Dehydrogenase Troponin T C-Reactive Protein Total Protein Albumin Cholesterol LDL Cholesterol Direct HDL Cholesterol Urine WBC (Auto) Vancomycin Trough Coronavirus (PCR) Crossmatch 07/13/19 07/13/19 07/13/19 06:50 12:38 18:05 WBC RBC Hgb Hct MCV MCH MCHC RDW Plt Count Lymph % (Auto) [place] % (Auto) Lymph # [place] # Baso # Seg Neutrophils % Seg Neuts % (Manual) Lymphocytes % (Manual) Seg Neutrophils # Seg Neutrophils # Man Lymphocytes # (Manual) PT INR D-Dimer ABG pH ABG pO2 ABG HCO3 ABG O2 Saturation ABG Base Excess ABG Hemoglobin Oxyhemoglobin Sodium Potassium Chloride Carbon Dioxide BUN 33 H Creatinine 0.5 L Glucose 136 H POC Glucose 164 H 145 H Lactic Acid Calcium Magnesium Iron TIBC Ferritin AST ALT Lactate Dehydrogenase Troponin T C-Reactive Protein Total Protein Albumin Cholesterol LDL Cholesterol Direct HDL Cholesterol Urine WBC (Auto) Vancomycin Trough Coronavirus (PCR) Crossmatch 07/13/19 07/14/19 07/14/19 18:30 00:21 04:40 WBC 22.9 H RBC 2.45 L Hgb 6.6 L Hct 21.1 L MCV MCH 27 L MCHC 31 L RDW 19.2 H Plt Count Lymph % (Auto) [place] % (Auto) Lymph # [place] # Baso # Seg Neutrophils % Seg Neuts % (Manual) 91.0 H Lymphocytes % (Manual) 7.0 L Seg Neutrophils # Seg Neutrophils # Man 20.8 H Lymphocytes # (Manual) PT INR D-Dimer ABG pH ABG pO2 58.1 L ABG HCO3 ABG O2 Saturation 88.7 L ABG Base Excess ABG Hemoglobin 7.8 L Oxyhemoglobin 86.8 L Sodium Potassium Chloride Carbon Dioxide BUN Creatinine Glucose POC Glucose 118 H Lactic Acid Calcium Magnesium Iron TIBC Ferritin AST ALT Lactate Dehydrogenase Troponin T C-Reactive Protein Total Protein Albumin Cholesterol LDL Cholesterol Direct HDL Cholesterol Urine WBC (Auto) Vancomycin Trough Coronavirus (PCR) Crossmatch 07/14/19 07/14/19 07/14/19 04:40 05:38 05:45 WBC RBC Hgb Hct MCV MCH MCHC RDW Plt Count Lymph % (Auto) [place] % (Auto) Lymph # [place] # Baso # Seg Neutrophils % Seg Neuts % (Manual) Lymphocytes % (Manual) Seg Neutrophils # Seg Neutrophils # Man Lymphocytes # (Manual) PT INR D-Dimer ABG pH 7.230 L ABG pO2 72.1 L ABG HCO3 ABG O2 Saturation 89.3 L ABG Base Excess -2.7 L ABG Hemoglobin 6.7 L Oxyhemoglobin 87.7 L Sodium Potassium Chloride 107.4 H Carbon Dioxide BUN 45 H Creatinine Glucose 101 H POC Glucose 154 H Lactic Acid Calcium Magnesium Iron TIBC Ferritin AST ALT Lactate Dehydrogenase Troponin T C-Reactive Protein Total Protein Albumin Cholesterol LDL Cholesterol Direct HDL Cholesterol Urine WBC (Auto) Vancomycin Trough Coronavirus (PCR) Crossmatch 07/14/19 07/14/19 07/14/19 12:25 18:20 19:01 WBC 22.4 H RBC 2.70 L Hgb 7.5 L Hct 23.3 L MCV MCH MCHC RDW 19.5 H Plt Count Lymph % (Auto) [place] % (Auto) Lymph # [place] # Baso # Seg Neutrophils % Seg Neuts % (Manual) Lymphocytes % (Manual) Seg Neutrophils # Seg Neutrophils # Man Lymphocytes # (Manual) PT INR D-Dimer ABG pH ABG pO2 ABG HCO3 ABG O2 Saturation ABG Base Excess ABG Hemoglobin Oxyhemoglobin Sodium Potassium Chloride Carbon Dioxide BUN Creatinine Glucose POC Glucose 136 H 131 H Lactic Acid Calcium Magnesium Iron TIBC Ferritin AST ALT Lactate Dehydrogenase Troponin T C-Reactive Protein Total Protein Albumin Cholesterol LDL Cholesterol Direct HDL Cholesterol Urine WBC (Auto) Vancomycin Trough Coronavirus (PCR) Crossmatch 07/15/19 07/15/19 07/15/19 00:17 04:35 05:18 WBC 20.6 H RBC 2.41 L Hgb 6.8 L Hct 20.7 L MCV MCH MCHC RDW 20.2 H Plt Count Lymph % (Auto) [place] % (Auto) Lymph # Stark # Baso # Seg Neutrophils % Seg Neuts % (Manual) 92.0 H Lymphocytes % (Manual) 5.0 L Seg Neutrophils # Seg Neutrophils # Man 19.0 H Lymphocytes # (Manual) 1.0 L PT INR D-Dimer ABG pH 7.342 L ABG pO2 ABG HCO3 ABG O2 Saturation ABG Base Excess -3.1 L ABG Hemoglobin 7.2 L Oxyhemoglobin 94.9 L Sodium Potassium Chloride Carbon Dioxide BUN Creatinine Glucose POC Glucose 116 H Lactic Acid Calcium Magnesium Iron TIBC Ferritin AST ALT Lactate Dehydrogenase Troponin T C-Reactive Protein Total Protein Albumin Cholesterol LDL Cholesterol Direct HDL Cholesterol Urine WBC (Auto) Vancomycin Trough Coronavirus (PCR) Crossmatch 07/15/19 07/15/19 07/15/19 05:18 05:57 11:28 WBC RBC Hgb Hct MCV MCH MCHC RDW Plt Count Lymph % (Auto) [place] % (Auto) Lymph # Stark # Baso # Seg Neutrophils % Seg Neuts % (Manual) Lymphocytes % (Manual) Seg Neutrophils # Seg Neutrophils # Man Lymphocytes # (Manual) PT INR D-Dimer ABG pH ABG pO2 ABG HCO3 ABG O2 Saturation ABG Base Excess ABG Hemoglobin Oxyhemoglobin Sodium Potassium Chloride Carbon Dioxide 20 L BUN 59 H Creatinine Glucose 140 H POC Glucose 139 H 117 H Lactic Acid Calcium Magnesium Iron TIBC Ferritin AST ALT Lactate Dehydrogenase Troponin T C-Reactive Protein Total Protein Albumin Cholesterol LDL Cholesterol Direct HDL Cholesterol Urine WBC (Auto) Vancomycin Trough Coronavirus (PCR) Crossmatch 07/15/19 07/16/19 07/16/19 18:13 00:06 03:43 WBC RBC Hgb Hct MCV MCH MCHC RDW Plt Count Lymph % (Auto) Stark % (Auto) Lymph # Stark # Baso # Seg Neutrophils % Seg Neuts % (Manual) Lymphocytes % (Manual) Seg Neutrophils # Seg Neutrophils # Man Lymphocytes # (Manual) PT INR D-Dimer ABG pH 7.344 L ABG pO2 68.6 L ABG HCO3 ABG O2 Saturation ABG Base Excess -3.5 L ABG Hemoglobin 6.1 L Oxyhemoglobin 93.3 L Sodium Potassium Chloride Carbon Dioxide BUN Creatinine Glucose POC Glucose 114 H 119 H Lactic Acid Calcium Magnesium Iron TIBC Ferritin AST ALT Lactate Dehydrogenase Troponin T C-Reactive Protein Total Protein Albumin Cholesterol LDL Cholesterol Direct HDL Cholesterol Urine WBC (Auto) Vancomycin Trough Coronavirus (PCR) Crossmatch 07/16/19 07/16/19 07/16/19 04:41 04:41 12:09 WBC 19.6 H RBC 2.81 L Hgb 7.7 L Hct 24.0 L MCV MCH 27 L MCHC RDW 19.4 H Plt Count 514 H Lymph % (Auto) 6.7 L Stark % (Auto) Lymph # Stark # 1.0 H Baso # Seg Neutrophils % 87.0 H Seg Neuts % (Manual) Lymphocytes % (Manual) Seg Neutrophils # 17.0 H Seg Neutrophils # Man Lymphocytes # (Manual) PT INR D-Dimer ABG pH ABG pO2 ABG HCO3 ABG O2 Saturation ABG Base Excess ABG Hemoglobin Oxyhemoglobin Sodium Potassium 5.9 H Chloride Carbon Dioxide 21 L BUN 73 H Creatinine 2.0 H Glucose POC Glucose 141 H Lactic Acid Calcium Magnesium Iron TIBC Ferritin AST ALT Lactate Dehydrogenase Troponin T C-Reactive Protein Total Protein Albumin Cholesterol LDL Cholesterol Direct HDL Cholesterol Urine WBC (Auto) Vancomycin Trough Coronavirus (PCR) Crossmatch 07/16/19 07/16/19 07/17/19 16:19 17:45 00:16 WBC RBC Hgb Hct MCV MCH MCHC RDW Plt Count Lymph % (Auto) Stark % (Auto) Lymph # Stark # Baso # Seg Neutrophils % Seg Neuts % (Manual) Lymphocytes % (Manual) Seg Neutrophils # Seg Neutrophils # Man Lymphocytes # (Manual) PT INR D-Dimer ABG pH ABG pO2 ABG HCO3 ABG O2 Saturation ABG Base Excess ABG Hemoglobin Oxyhemoglobin Sodium Potassium 5.1 H Chloride Carbon Dioxide 20 L BUN 72 H Creatinine 1.7 H Glucose 128 H POC Glucose 181 H 164 H Lactic Acid Calcium Magnesium Iron TIBC Ferritin AST ALT Lactate Dehydrogenase Troponin T C-Reactive Protein Total Protein Albumin Cholesterol LDL Cholesterol Direct HDL Cholesterol Urine WBC (Auto) Vancomycin Trough Coronavirus (PCR) Crossmatch 07/17/19 07/17/19 07/17/19 04:20 04:39 04:39 WBC 16.1 H RBC 2.92 L Hgb 8.0 L Hct 25.5 L MCV MCH MCHC 31 L RDW 19.7 H Plt Count 564 H Lymph % (Auto) 3.6 L Stark % (Auto) 7.4 H Lymph # 0.6 L Stark # 1.2 H Baso # Seg Neutrophils % 87.5 H Seg Neuts % (Manual) Lymphocytes % (Manual) Seg Neutrophils # 14.1 H Seg Neutrophils # Man Lymphocytes # (Manual) PT INR D-Dimer ABG pH 7.231 L ABG pO2 95.3 H ABG HCO3 ABG O2 Saturation ABG Base Excess -5.0 L ABG Hemoglobin 7.9 L Oxyhemoglobin 94.8 L Sodium Potassium Chloride 107.8 H Carbon Dioxide 21 L BUN 68 H Creatinine Glucose POC Glucose Lactic Acid Calcium Magnesium Iron TIBC Ferritin AST ALT Lactate Dehydrogenase Troponin T C-Reactive Protein Total Protein Albumin Cholesterol LDL Cholesterol Direct HDL Cholesterol Urine WBC (Auto) Vancomycin Trough Coronavirus (PCR) Crossmatch 07/17/19 07/17/19 07/17/19 05:28 12:11 18:48 WBC RBC Hgb Hct MCV MCH MCHC RDW Plt Count Lymph % (Auto) Stark % (Auto) Lymph # Stark # Baso # Seg Neutrophils % Seg Neuts % (Manual) Lymphocytes % (Manual) Seg Neutrophils # Seg Neutrophils # Man Lymphocytes # (Manual) PT INR D-Dimer ABG pH ABG pO2 ABG HCO3 ABG O2 Saturation ABG Base Excess ABG Hemoglobin Oxyhemoglobin Sodium Potassium Chloride Carbon Dioxide BUN Creatinine Glucose POC Glucose 121 H 125 H 174 H Lactic Acid Calcium Magnesium Iron TIBC Ferritin AST ALT Lactate Dehydrogenase Troponin T C-Reactive Protein Total Protein Albumin Cholesterol LDL Cholesterol Direct HDL Cholesterol Urine WBC (Auto) Vancomycin Trough Coronavirus (PCR) Crossmatch 07/17/19 07/17/19 07/18/19 19:55 23:57 02:30 WBC RBC Hgb Hct MCV MCH MCHC RDW Plt Count Lymph % (Auto) Stark % (Auto) Lymph # Stark # Baso # Seg Neutrophils % Seg Neuts % (Manual) Lymphocytes % (Manual) Seg Neutrophils # Seg Neutrophils # Man Lymphocytes # (Manual) PT INR D-Dimer ABG pH 7.344 L 7.294 L ABG pO2 78.5 L 119.2 H ABG HCO3 ABG O2 Saturation ABG Base Excess -3.3 L -2.6 L ABG Hemoglobin 8.6 L 8.1 L Oxyhemoglobin 94.8 L Sodium Potassium Chloride Carbon Dioxide BUN Creatinine Glucose POC Glucose 148 H Lactic Acid Calcium Magnesium Iron TIBC Ferritin AST ALT Lactate Dehydrogenase Troponin T C-Reactive Protein Total Protein Albumin Cholesterol LDL Cholesterol Direct HDL Cholesterol Urine WBC (Auto) Vancomycin Trough Coronavirus (PCR) Crossmatch 07/18/19 07/18/19 07/18/19 04:49 05:22 05:22 WBC 15.9 H RBC 3.00 L Hgb 8.1 L Hct 26.0 L MCV MCH 27 L MCHC 31 L RDW 19.4 H Plt Count 733 H Lymph % (Auto) 6.3 L Stark % (Auto) 7.4 H Lymph # 1.0 L Stark # 1.2 H Baso # 0.2 H Seg Neutrophils % 83.8 H Seg Neuts % (Manual) Lymphocytes % (Manual) Seg Neutrophils # 13.3 H Seg Neutrophils # Man Lymphocytes # (Manual) PT INR D-Dimer ABG pH ABG pO2 ABG HCO3 ABG O2 Saturation ABG Base Excess ABG Hemoglobin Oxyhemoglobin Sodium Potassium Chloride 110.6 H Carbon Dioxide BUN 61 H Creatinine Glucose 109 H POC Glucose 116 H Lactic Acid Calcium Magnesium Iron TIBC Ferritin AST ALT Lactate Dehydrogenase Troponin T C-Reactive Protein Total Protein Albumin Cholesterol LDL Cholesterol Direct HDL Cholesterol Urine WBC (Auto) Vancomycin Trough Coronavirus (PCR) Crossmatch 07/18/19 12:23 WBC RBC Hgb Hct MCV MCH MCHC RDW Plt Count Lymph % (Auto) Stark % (Auto) Lymph # Stark # Baso # Seg Neutrophils % Seg Neuts % (Manual) Lymphocytes % (Manual) Seg Neutrophils # Seg Neutrophils # Man Lymphocytes # (Manual) PT INR D-Dimer ABG pH ABG pO2 ABG HCO3 ABG O2 Saturation ABG Base Excess ABG Hemoglobin Oxyhemoglobin Sodium Potassium Chloride Carbon Dioxide BUN Creatinine Glucose POC Glucose 114 H Lactic Acid Calcium Magnesium Iron TIBC Ferritin AST ALT Lactate Dehydrogenase Troponin T C-Reactive Protein Total Protein Albumin Cholesterol LDL Cholesterol Direct HDL Cholesterol Urine WBC (Auto) Vancomycin Trough Coronavirus (PCR) Crossmatch Chest x-ray: pending Allied health notes reviewed: nursing
--- NOTE | 2019-07-18 15:17 | Progress Note ---
Assessment and Plan Cultures: 07/03/2019 urine culture: No growth 07/03/2019 Tracheal aspirate: E.coli A/P: 69-year-old male with CVA, hypertension, dementia, schizophrenia, alcohol use disorder was admitted to the emergency room after being brought in by EMS with progressive shortness of breath and unresponsiveness. He was noted to have agonal breathing and a faint pulse requiring CPR. It seems patient was on hospice recently. #Shock, likely septic: Lactic acidosis. Remains off pressors. #Severe COVID-19 disease and pneumonia: Elevated markers. Completed Plaquenil. Completed Ceftriaxone for treatment E.coli in tracheal aspirate. #Acute respiratory failure: on mechanical ventilation. #Transaminitis: Likely from COVID-19, shock #Leucocytosis: ?reactive from above. Recs: continue supportive care for COVID-19 agree with DNR. Poor prognosis. It seems patient was on hospice recently Mekhi Barboza MD [facility] ([facility]) M: [phone] O: [phone] F: [phone] Subjective Date of service: 07/18/19 Principal diagnosis: Bilateral pneumonia, severe sepsis with septic shock, encephalopathy Interval history: Afebrile with a stable white count of 16. Objective - Exam Narrative Exam: Physical Exam (reviewed in chart due to PPE conservation) Constitutional: intubated, sedated, on the vent Head, Ears, Nose: normocephalic, atraumatic Eyes: limited due to PPE conservation strategy Neck: intubated Oral: intubated Cardiovascular: limited due to PPE conservation strategy Respiratory: limited due to PPE conservation strategy GI: limited due to PPE conservation strategy Musculoskeletal: limited due to PPE conservation strategy Skin: limited due to PPE conservation strategy Hem/Lymphatic: limited due to PPE conservation strategy Psych: no agitation Neurological: sedated, intubated, on the vent, exam limited - Constitutional Vitals: Vital Signs Temp Pulse Resp BP Pulse Ox 96.6 F L 90 16 81/52 99 07/18/19 08:00 07/18/19 12:46 07/18/19 11:30 07/18/19 12:46 07/18/19 12:46 Temperature -Last 24 Hours Temperature 96.6 F Temperature 97.6 F Temperature 97.6 F Temperature 98.7 F Temperature 98.8 F Temperature 97.2 F - Labs CBC & Chem 7: 07/18/19 05:22 07/18/19 05:22 Labs: Abnormal lab results 07/17/19 07/17/19 07/17/19 Range/Units 18:48 19:55 23:57 WBC (4.5-11.0) K/mm3 RBC (3.65-5.03) M/mm3 Hgb (11.8-15.2) gm/dl Hct (35.5-45.6) % MCH (28-32) pg MCHC (32-34) % RDW (13.2-15.2) % Plt Count (140-440) K/mm3 Lymph % (Auto) (13.4-35.0) % [place] % (Auto) (0.0-7.3) % Lymph # (1.2-5.4) K/mm3 [place] # (0.0-0.8) K/mm3 Baso # (0.0-0.1) K/mm3 Seg Neutrophils % (40.0-70.0) % Seg Neutrophils # (1.8-7.7) K/mm3 ABG pH 7.344 L (7.350-7.450) pH Units ABG pO2 78.5 L (80.0-90.0) mm Hg ABG Base Excess -3.3 L (-2.0-3.0) mmol/L ABG Hemoglobin 8.6 L (14.0-18.0) gm/dl Oxyhemoglobin 94.8 L (95.0-99.0) % Chloride (98-107) mmol/L BUN (9-20) mg/dL Glucose (75-100) mg/dL POC Glucose 174 H 148 H (70-105) 07/18/19 07/18/19 07/18/19 Range/Units 02:30 04:49 05:22 WBC 15.9 H (4.5-11.0) K/mm3 RBC 3.00 L (3.65-5.03) M/mm3 Hgb 8.1 L (11.8-15.2) gm/dl Hct 26.0 L (35.5-45.6) % MCH 27 L (28-32) pg MCHC 31 L (32-34) % RDW 19.4 H (13.2-15.2) % Plt Count 733 H (140-440) K/mm3 Lymph % (Auto) 6.3 L (13.4-35.0) % [place] % (Auto) 7.4 H (0.0-7.3) % Lymph # 1.0 L (1.2-5.4) K/mm3 [place] # 1.2 H (0.0-0.8) K/mm3 Baso # 0.2 H (0.0-0.1) K/mm3 Seg Neutrophils % 83.8 H (40.0-70.0) % Seg Neutrophils # 13.3 H (1.8-7.7) K/mm3 ABG pH 7.294 L (7.350-7.450) pH Units ABG pO2 119.2 H (80.0-90.0) mm Hg ABG Base Excess -2.6 L (-2.0-3.0) mmol/L ABG Hemoglobin 8.1 L (14.0-18.0) gm/dl Oxyhemoglobin (95.0-99.0) % Chloride (98-107) mmol/L BUN (9-20) mg/dL Glucose (75-100) mg/dL POC Glucose 116 H (70-105) 07/18/19 07/18/19 Range/Units 05:22 12:23 WBC (4.5-11.0) K/mm3 RBC (3.65-5.03) M/mm3 Hgb (11.8-15.2) gm/dl Hct (35.5-45.6) % MCH (28-32) pg MCHC (32-34) % RDW (13.2-15.2) % Plt Count (140-440) K/mm3 Lymph % (Auto) (13.4-35.0) % [place] % (Auto) (0.0-7.3) % Lymph # (1.2-5.4) K/mm3 [place] # (0.0-0.8) K/mm3 Baso # (0.0-0.1) K/mm3 Seg Neutrophils % (40.0-70.0) % Seg Neutrophils # (1.8-7.7) K/mm3 ABG pH (7.350-7.450) pH Units ABG pO2 (80.0-90.0) mm Hg ABG Base Excess (-2.0-3.0) mmol/L ABG Hemoglobin (14.0-18.0) gm/dl Oxyhemoglobin (95.0-99.0) % Chloride 110.6 H (98-107) mmol/L BUN 61 H (9-20) mg/dL Glucose 109 H (75-100) mg/dL POC Glucose 114 H (70-105)
[2019-07-18] MEDS: NORepinephrine/NS 4 MG-250 ML 4 MG/250 ML BAG IV SCH (22:14)
[2019-07-18 22:36] LABS: ABG Base Excess -1.7 mmol/L (-2.0-3.0); ABG HCO3 24.1 mmol/L (20.0-26.0); ABG Methemoglobin 0.5 % (0.0-1.5); ABG Oxygen Saturation 98.5 % (95.0-99.0); ABG PCO2 45.9 mm Hg; ABG PH 7.338 pH Units (7.350-7.450); ABG PO2 135.1 mm Hg (80.0-90.0)
[2019-07-19] MEDS: fentaNYL DRIP Premix 2,000 MCG/100 ML BAG IV SCH (00:23)
[2019-07-19] MEDS: INSULIN LISPRO 100 UNIT/ML SUB-Q SCH ×2 (00:24→05:45)
[2019-07-19 04:19] LABS: ABG Base Excess -1.8 mmol/L (-2.0-3.0); ABG Methemoglobin 0.4 % (0.0-1.5); ABG Oxygen Saturation 97.1 % (95.0-99.0); ABG PCO2 45.2 mm Hg; ABG PH 7.342 pH Units (7.350-7.450)
[2019-07-19 08:52] LABS: Basophils # (Auto) 0.1 K/mm3 (0.0-0.1); Basophils % (Auto) 0.5 % (0.0-1.8); Eosinophils # (Auto) 0.2 K/mm3 (0.0-0.4); Hematocrit 28.4 % (35.5-45.6); Hemoglobin 9.1 gm/dl (11.8-15.2); Lymphocytes # (Auto) 0.8 K/mm3 (1.2-5.4); Lymphocytes % (Auto) 4.9 % (13.4-35.0); Mean Corpuscular HGB Conc 32 % (32-34); Mean Corpuscular Volume 86 fl (84-94); Monocytes # (Auto) 1.3 K/mm3 (0.0-0.8); Monocytes % (Auto) 8.1 % (0.0-7.3); Platelet Count 858 K/mm3 (140-440); Red Blood Count 3.31 M/mm3 (3.65-5.03); Red Cell Distribution Width 19.1 % (13.2-15.2)
--- NOTE | 2019-07-19 08:57 | Progress Note ---
Assessment and Plan S/p Cardiopulmonary arrest with ROSC Severe Sepsis with septic shock. Acute hypoxemic respiratory failure on MVS COVID-19 positive with elevated markers Bilateral pneumonia Elevated LFTs. Oropharyngeal dysphagia s/p PEG Acute kidney injury Decubitus ulcers-unstageable Moderate protein calorie malnutriton [id number] metabolic acidosis Leukocytosis -improving Thrombocytopenia Microcytic anemia -Secretion management, continue Scopolamine -Stop metoprolol -Patient is unresponsive, discontinue fentanyl infusion and monitor response -Wean vasopressor support for MAP>65 -Wean FIO2 down to 55% -Continue all critical care as documented below -ABG, CXR in the am, CBC in the am - continue airborne, droplet and contact isolation for COVID-19 - continue wound care per WCT - continue to wean supplemental oxygen for target O2 sat's > 90% - Daily SAT's and SBT assessment as tolerated - VAP bundle addressed - continue lung protective strategies - continue bronchodilators with pulmonary hygiene per RT - wean per pulmonary driven protocols - accuchecks with glycemic control per SSI (While critically ill target blood glucose of 140-180 mg/dL; avoid hypoglycemia) - continue to avoid benzodiazepines, reduce the possibility of delirium - prn analgesia per CPOT score - Maintenance of sleep-wake cycle, avoid delirium - continue enteral nutritional support at goal rate as tolerated - VTE prophylaxis-SCDs, once thrombocytopenia improves start VTE pharmaco- prophylaxis -Stress ulcer prophylaxis- Famotidine - PT/OT/ROM exercises - continue mobility protocol, off loading and skin assessment for pressure ulcer prevention - Monitor hemodynamics closely -Wright catheter in this critically ill patient with unstageable sacral decubitus ulcer -PEG site care - continue other care per attending / other consultants - discharge planning ongoing concurrently .... Re-evaluate in am & prn CONDITION: CRITICAL PROGNOSIS: GUARDED CODE STATUS: DNAR Called his family to discuss goals of care, wants us to continue to treat aggressively at this time. The high probability of a clinically significant, sudden or life-threatening deterioration of the [respiratory & cardiovascular] system(s) required my full and direct attention, intervention and personal management. The aggregate critic al care time was [31] minutes without overlap. Time includes spent on; [x] Data Review and interpretation [x] Patient assessment and monitoring of vital signs [x] Documentation [x] Medication orders and management Subjective Date of service: 07/19/19 Principal diagnosis: Bilateral pneumonia, severe sepsis with septic shock, encephalopathy Interval history: The patient is a 69-year-old male with CVA, hypertension, dementia, schizophrenia, alcohol use disorder was admitted to the emergency room after being brought in by EMS with progressive shortness of breath and unresponsiveness. He was noted to have agonal breathing and a faint pulse requiring CPR. Patient was intubated and brought to the hospital. It seems, patient was on home hospice. Currently, remains critically ill, intubated, on mechanical ventilation. His COVID test resulted positive. Patient is seen today for: s/p cardiopulmonary arrest with ROSC;Ac hypoxemic Resp failure on MVS; Severe sepsis with Shock; Bilateral Pneumonia; POSITIVE coronavirus-19 infection. Seen and examined at bedside; 24hour events reviewed; nursing and respiratory care staff consulted; no adverse overnight events reported to me; resting in bed. No reported fevers. On MVS and tolerating it well; remains on norepinephrine at 2mcg Tolerating tube feedings, no diarrhea, Mental status changes persist Improving oral and ETT secretions Current setting AC-VC 25/500/60%/PEEP 6 Objective Vital Signs - 12hr 07/18/19 07/18/19 07/18/19 21:00 21:15 21:30 Temperature Pulse Rate 98 H 97 H 97 H Pulse Rate [ From Monitor] Respiratory 20 20 20 Rate Blood Pressure 128/71 132/81 141/83 O2 Sat by Pulse 100 100 100 Oximetry 07/18/19 07/18/19 07/18/19 21:46 22:00 22:13 Temperature Pulse Rate 99 H 99 H 101 H Pulse Rate [ From Monitor] Respiratory 20 20 Rate Blood Pressure 144/89 146/82 146/82 O2 Sat by Pulse 100 100 Oximetry 07/18/19 07/18/19 07/18/19 22:16 22:30 22:46 Temperature Pulse Rate 101 H 98 H 99 H Pulse Rate [ From Monitor] Respiratory 20 20 20 Rate Blood Pressure 127/70 127/70 140/83 O2 Sat by Pulse 100 100 100 Oximetry 07/18/19 07/18/19 07/18/19 23:00 23:16 23:30 Temperature Pulse Rate 95 H 95 H 95 H Pulse Rate [ From Monitor] Respiratory 20 20 20 Rate Blood Pressure 147/84 141/79 146/87 O2 Sat by Pulse 100 100 100 Oximetry 0407/18/19 07/18/19 23:40 23:46 23:58 Temperature Pulse Rate 96 H 97 H 94 H Pulse Rate [ From Monitor] Respiratory 20 20 Rate Blood Pressure 139/85 146/87 139/85 O2 Sat by Pulse 100 100 100 Oximetry 07/19/19 07/19/19 07/19/19 00:00 00:16 00:30 Temperature 98.8 F Pulse Rate 94 H 94 H 97 H Pulse Rate [ 94 H From Monitor] Respiratory 20 20 20 Rate Blood Pressure 139/85 118/69 112/68 O2 Sat by Pulse 100 100 100 Oximetry 07/19/19 07/19/19 07/19/19 00:45 01:00 01:16 Temperature Pulse Rate 96 H 95 H 96 H Pulse Rate [ From Monitor] Respiratory 20 20 20 Rate Blood Pressure 110/64 118/67 93/47 O2 Sat by Pulse 100 100 100 Oximetry 07/19/19 07/19/19 07/19/19 01:30 01:45 02:00 Temperature Pulse Rate 93 H 97 H 95 H Pulse Rate [ From Monitor] Respiratory 20 20 20 Rate Blood Pressure 86/47 97/64 93/47 O2 Sat by Pulse 100 100 100 Oximetry 07/19/19 07/19/19 07/19/19 02:16 02:30 02:46 Temperature Pulse Rate 95 H 95 H 95 H Pulse Rate [ From Monitor] Respiratory 20 20 20 Rate Blood Pressure 124/67 126/87 122/89 O2 Sat by Pulse 100 100 100 Oximetry 07/19/19 07/19/19 07/19/19 03:00 03:15 03:30 Temperature Pulse Rate 93 H 92 H 92 H Pulse Rate [ From Monitor] Respiratory 20 20 20 Rate Blood Pressure 120/87 123/75 133/66 O2 Sat by Pulse 100 100 100 Oximetry 07/19/1920 20 03:46 04:00 04:14 Temperature 98.9 F Pulse Rate 96 H 95 H 93 H Pulse Rate [ 95 H From Monitor] Respiratory 26 H 20 Rate Blood Pressure 152/115 133/66 133/66 O2 Sat by Pulse 95 100 100 Oximetry 07/19/1920 20 04:16 04:30 04:45 Temperature Pulse Rate 95 H 94 H 94 H Pulse Rate [ From Monitor] Respiratory 19 20 20 Rate Blood Pressure 98/54 98/54 106/60 O2 Sat by Pulse 100 100 100 Oximetry 07/19/19 07/19/19 07/19/19 05:00 05:15 05:30 Temperature Pulse Rate 96 H 97 H 98 H Pulse Rate [ From Monitor] Respiratory 20 19 20 Rate Blood Pressure 104/66 101/60 98/59 O2 Sat by Pulse 100 100 100 Oximetry 07/19/19 07/19/19 07/19/19 05:45 06:00 06:15 Temperature Pulse Rate 98 H 96 H 99 H Pulse Rate [ From Monitor] Respiratory 19 20 20 Rate Blood Pressure 90/63 98/59 113/63 O2 Sat by Pulse 100 100 100 Oximetry 07/19/19 07/19/19 07/19/19 06:30 06:45 07:00 Temperature Pulse Rate 100 H 100 H 98 H Pulse Rate [ From Monitor] Respiratory 20 20 20 Rate Blood Pressure 115/61 108/63 116/69 O2 Sat by Pulse 100 100 100 Oximetry 07/19/19 07/19/19 07/19/19 07:15 07:30 07:36 Temperature Pulse Rate 97 H 102 H Pulse Rate [ 95 H From Monitor] Respiratory 21 16 20 Rate Blood Pressure 116/68 129/69 O2 Sat by Pulse 99 81 L 100 Oximetry 07/19/19 08:00 Temperature Pulse Rate 102 H Pulse Rate [ From Monitor] Respiratory Rate Blood Pressure 129/69 O2 Sat by Pulse 100 Oximetry Constitutional: no acute distress, other (eelderly and chronically ill looking AAM, normocep[krystina;ic with mildly increased respiratory effort at rest) Eyes: non-icteric ENT: oropharynx moist, other (ETT 24 cm RUTH) Neck: supple, no lymphadenopathy, no JVD Effort: mildly labored Ascultation: Bilateral: diminished breath sounds, rhonchi Percussion: Bilateral: not dull Cardiovascular: regular rate and rhythm Gastrointestinal: normoactive bowel sounds, soft, non-tender, non-distended, other (+ PEG tube with mild TF leakage) Integumentary: decubitus ulcer Extremities: no cyanosis, pink and warm, pulses normal, edema (bilateral upper extemity edema) Neurologic: unable to assess Psychiatric: other (Unable to assess re: AMS) CBC and BMP: 07/22/19 05:38 07/23/19 04:52 ABG, PT/INR, D-dimer: ABG ABG pH 7.342 pH Units (7.350-7.450) L 07/19/19 03:45 ABG pCO2 45.2 mm Hg 07/19/19 03:45 ABG pO2 95.0 mm Hg (80.0-90.0) H 07/19/19 03:45 ABG O2 Saturation 97.1 % (95.0-99.0) 07/19/19 03:45 PT/INR, D-dimer PT 16.0 Sec. (12.2-14.9) H 07/03/19 22:20 INR 1.26 (0.87-1.13) H 07/03/19 22:20 D-Dimer 1142.18 ng/mlDDU (0-234) H 07/08/19 00:45 Abnormal lab findings: Abnormal Labs 07/03/19 07/03/19 07/03/19 19:57 21:10 21:13 WBC RBC Hgb Hct MCV MCH MCHC RDW Plt Count Lymph % (Auto) Knott % (Auto) Lymph # Knott # Baso # Seg Neutrophils % Seg Neuts % (Manual) Lymphocytes % (Manual) Seg Neutrophils # Seg Neutrophils # Man Lymphocytes # (Manual) PT INR D-Dimer ABG pH 7.238 L ABG pO2 210.8 H ABG HCO3 15.4 L ABG O2 Saturation 99.2 H ABG Base Excess -11.1 L ABG Hemoglobin 8.0 L Oxyhemoglobin Sodium 124 L Potassium Chloride 92.9 L Carbon Dioxide 10 L BUN 23 H Creatinine 0.5 L Glucose 118 H POC Glucose Lactic Acid Calcium 7.0 L Magnesium Iron TIBC Ferritin AST 70 H ALT 88 H Lactate Dehydrogenase Troponin T 0.032 H C-Reactive Protein Total Protein 5.0 L Albumin 1.8 L Cholesterol 47 L LDL Cholesterol Direct 25 L HDL Cholesterol 20 L Urine WBC (Auto) 12.0 H Vancomycin Trough Coronavirus (PCR) Crossmatch 07/03/19 07/03/19 07/03/19 22:20 22:20 22:20 WBC 30.5 H RBC 2.96 L Hgb 7.7 L Hct 23.9 L MCV 81 L MCH 26 L MCHC RDW 18.6 H Plt Count 459 H Lymph % (Auto) Knott % (Auto) Lymph # K[place]t # Baso # Seg Neutrophils % Seg Neuts % (Manual) 93.0 H Lymphocytes % (Manual) 0.5 L Seg Neutrophils # Seg Neutrophils # Man 28.4 H Lymphocytes # (Manual) 0.2 L PT 16.0 H INR 1.26 H D-Dimer ABG pH ABG pO2 ABG HCO3 ABG O2 Saturation ABG Base Excess ABG Hemoglobin Oxyhemoglobin Sodium Potassium Chloride Carbon Dioxide BUN Creatinine Glucose POC Glucose Lactic Acid 6.90 H* Calcium Magnesium Iron TIBC Ferritin AST ALT Lactate Dehydrogenase Troponin T C-Reactive Protein Total Protein Albumin Cholesterol LDL Cholesterol Direct HDL Cholesterol Urine WBC (Auto) Vancomycin Trough Coronavirus (PCR) Crossmatch 07/03/19 07/04/19 07/04/19 23:58 05:15 07:05 WBC 17.1 H RBC 3.22 L Hgb 8.3 L Hct 25.4 L MCV 79 L MCH 26 L MCHC RDW 18.6 H Plt Count Lymph % (Auto) Knott % (Auto) Lymph # K[place]t # Baso # Seg Neutrophils % Seg Neuts % (Manual) 74.0 H Lymphocytes % (Manual) 0 L Seg Neutrophils # Seg Neutrophils # Man 12.7 H Lymphocytes # (Manual) 0.0 L PT INR D-Dimer ABG pH 7.310 L ABG pO2 73.2 L ABG HCO3 17.8 L ABG O2 Saturation 93.8 L ABG Base Excess -7.7 L ABG Hemoglobin 9.6 L Oxyhemoglobin 92.3 L Sodium Potassium Chloride Carbon Dioxide BUN Creatinine Glucose POC Glucose Lactic Acid 7.10 H* Calcium Magnesium Iron TIBC Ferritin AST ALT Lactate Dehydrogenase Troponin T C-Reactive Protein Total Protein Albumin Cholesterol LDL Cholesterol Direct HDL Cholesterol Urine WBC (Auto) Vancomycin Trough Coronavirus (PCR) Crossmatch 07/04/19 07/04/19 07/04/19 07:05 07:05 07:05 WBC RBC Hgb Hct MCV MCH MCHC RDW Plt Count Lymph % (Auto) Knott % (Auto) Lymph # [place]t # Baso # Seg Neutrophils % Seg Neuts % (Manual) Lymphocytes % (Manual) Seg Neutrophils # Seg Neutrophils # Man Lymphocytes # (Manual) PT INR D-Dimer ABG pH ABG pO2 ABG HCO3 ABG O2 Saturation ABG Base Excess ABG Hemoglobin Oxyhemoglobin Sodium 120 L Potassium 5.1 H Chloride 90.0 L Carbon Dioxide 14 L BUN 26 H Creatinine 0.5 L Glucose POC Glucose Lactic Acid 3.30 H* Calcium 8.0 L Magnesium Iron 9 L TIBC 97 L Ferritin AST 73 H ALT 91 H Lactate Dehydrogenase Troponin T C-Reactive Protein Total Protein 5.5 L Albumin 2.0 L Cholesterol LDL Cholesterol Direct HDL Cholesterol Urine WBC (Auto) Vancomycin Trough Coronavirus (PCR) Crossmatch 07/04/19 07/04/19 07/04/19 09:39 09:39 09:39 WBC RBC Hgb Hct MCV MCH MCHC RDW Plt Count Lymph % (Auto) K[place]t % (Auto) Lymph # K[place]t # Baso # Seg Neutrophils % Seg Neuts % (Manual) Lymphocytes % (Manual) Seg Neutrophils # Seg Neutrophils # Man Lymphocytes # (Manual) PT INR D-Dimer 1419.14 H ABG pH ABG pO2 ABG HCO3 ABG O2 Saturation ABG Base Excess ABG Hemoglobin Oxyhemoglobin Sodium Potassium Chloride Carbon Dioxide BUN Creatinine Glucose POC Glucose Lactic Acid Calcium Magnesium Iron TIBC Ferritin 1719.0 H AST ALT Lactate Dehydrogenase 234 H Troponin T C-Reactive Protein 15.50 H Total Protein Albumin Cholesterol LDL Cholesterol Direct HDL Cholesterol Urine WBC (Auto) Vancomycin Trough Coronavirus (PCR) Crossmatch 07/04/19 07/04/19 07/04/19 10:09 18:08 18:28 WBC RBC Hgb Hct MCV MCH MCHC RDW Plt Count Lymph % (Auto) Knott % (Auto) Lymph # K[place]t # Baso # Seg Neutrophils % Seg Neuts % (Manual) Lymphocytes % (Manual) Seg Neutrophils # Seg Neutrophils # Man Lymphocytes # (Manual) PT INR D-Dimer ABG pH ABG pO2 ABG HCO3 ABG O2 Saturation ABG Base Excess ABG Hemoglobin Oxyhemoglobin Sodium 117 L* Potassium 5.6 H Chloride 90.3 L Carbon Dioxide 16 L BUN 28 H Creatinine 0.5 L Glucose 58 L POC Glucose 65 L Lactic Acid Calcium 8.2 L Magnesium Iron TIBC Ferritin AST ALT Lactate Dehydrogenase Troponin T C-Reactive Protein Total Protein Albumin Cholesterol LDL Cholesterol Direct HDL Cholesterol Urine WBC (Auto) Vancomycin Trough Coronavirus (PCR) Positive A Crossmatch 07/04/19 07/04/19 07/04/19 23:45 Unknown Unknown WBC RBC Hgb Hct MCV MCH MCHC RDW Plt Count Lymph % (Auto) Knott % (Auto) Lymph # K[place]t # Baso # Seg Neutrophils % Seg Neuts % (Manual) Lymphocytes % (Manual) Seg Neutrophils # Seg Neutrophils # Man Lymphocytes # (Manual) PT INR D-Dimer 759.77 H ABG pH ABG pO2 ABG HCO3 ABG O2 Saturation ABG Base Excess ABG Hemoglobin Oxyhemoglobin Sodium 122 L Potassium Chloride 93.0 L Carbon Dioxide 19 L BUN 27 H Creatinine 0.5 L Glucose POC Glucose Lactic Acid Calcium 8.3 L Magnesium Iron TIBC Ferritin 1301.0 H AST ALT Lactate Dehydrogenase Troponin T C-Reactive Protein Total Protein Albumin Cholesterol LDL Cholesterol Direct HDL Cholesterol Urine WBC (Auto) Vancomycin Trough Coronavirus (PCR) Crossmatch 07/04/19 07/05/19 07/05/19 Unknown 03:20 04:00 WBC RBC Hgb Hct MCV MCH MCHC RDW Plt Count Lymph % (Auto) Knott % (Auto) Lymph # K[place]t # Baso # Seg Neutrophils % Seg Neuts % (Manual) Lymphocytes % (Manual) Seg Neutrophils # Seg Neutrophils # Man Lymphocytes # (Manual) PT INR D-Dimer ABG pH ABG pO2 60.6 L ABG HCO3 ABG O2 Saturation 93.5 L ABG Base Excess -2.4 L ABG Hemoglobin 6.9 L Oxyhemoglobin 92.0 L Sodium 125 L Potassium Chloride 92.6 L Carbon Dioxide 19 L BUN 24 H Creatinine 0.6 L Glucose POC Glucose Lactic Acid Calcium 8.2 L Magnesium 1.40 L Iron TIBC Ferritin AST ALT Lactate Dehydrogenase 242 H Troponin T C-Reactive Protein 16.70 H Total Protein Albumin Cholesterol LDL Cholesterol Direct HDL Cholesterol Urine WBC (Auto) Vancomycin Trough Coronavirus (PCR) Crossmatch 07/05/19 07/05/19 07/05/19 10:11 16:15 17:54 WBC 46.4 H* RBC 2.77 L Hgb 7.2 L Hct 21.9 L MCV 79 L MCH 26 L MCHC RDW 19.0 H Plt Count Lymph % (Auto) Knott % (Auto) Lymph # [place]t # Baso # Seg Neutrophils % Seg Neuts % (Manual) 82.0 H Lymphocytes % (Manual) 1.0 L Seg Neutrophils # Seg Neutrophils # Man 38.0 H Lymphocytes # (Manual) 0.5 L PT INR D-Dimer ABG pH ABG pO2 ABG HCO3 ABG O2 Saturation ABG Base Excess ABG Hemoglobin Oxyhemoglobin Sodium Potassium Chloride Carbon Dioxide BUN Creatinine Glucose POC Glucose 69 L Lactic Acid Calcium Magnesium Iron TIBC Ferritin AST ALT Lactate Dehydrogenase Troponin T C-Reactive Protein Total Protein Albumin Cholesterol LDL Cholesterol Direct HDL Cholesterol Urine WBC (Auto) Vancomycin Trough 23.2 H Coronavirus (PCR) Crossmatch 07/05/19 07/06/19 07/06/19 19:58 00:27 00:27 WBC RBC Hgb Hct MCV MCH MCHC RDW Plt Count Lymph % (Auto) Knott % (Auto) Lymph # [place]t # Baso # Seg Neutrophils % Seg Neuts % (Manual) Lymphocytes % (Manual) Seg Neutrophils # Seg Neutrophils # Man Lymphocytes # (Manual) PT INR D-Dimer 1333.22 H ABG pH ABG pO2 ABG HCO3 ABG O2 Saturation ABG Base Excess ABG Hemoglobin Oxyhemoglobin Sodium 127 L Potassium Chloride Carbon Dioxide BUN Creatinine Glucose POC Glucose Lactic Acid Calcium Magnesium Iron TIBC Ferritin 977.1 H AST ALT Lactate Dehydrogenase Troponin T C-Reactive Protein Total Protein Albumin Cholesterol LDL Cholesterol Direct HDL Cholesterol Urine WBC (Auto) Vancomycin Trough Coronavirus (PCR) Crossmatch 07/06/19 07/06/19 07/06/19 00:27 02:00 02:56 WBC RBC Hgb Hct MCV MCH MCHC RDW Plt Count Lymph % (Auto) Knott % (Auto) Lymph # K[place]t # Baso # Seg Neutrophils % Seg Neuts % (Manual) Lymphocytes % (Manual) Seg Neutrophils # Seg Neutrophils # Man Lymphocytes # (Manual) PT INR D-Dimer ABG pH ABG pO2 70.3 L ABG HCO3 ABG O2 Saturation 94.8 L ABG Base Excess ABG Hemoglobin 8.0 L Oxyhemoglobin 93.2 L Sodium Potassium Chloride Carbon Dioxide BUN Creatinine Glucose POC Glucose 117 H Lactic Acid Calcium Magnesium Iron TIBC Ferritin AST ALT Lactate Dehydrogenase 236 H Troponin T C-Reactive Protein 22.90 H Total Protein Albumin Cholesterol LDL Cholesterol Direct HDL Cholesterol Urine WBC (Auto) Vancomycin Trough Coronavirus (PCR) Crossmatch 07/06/19 07/06/19 07/06/19 03:49 03:49 07:40 WBC 38.8 H RBC 2.51 L Hgb 6.7 L Hct 19.9 L* MCV 79 L MCH 27 L MCHC RDW 19.2 H Plt Count Lymph % (Auto) K[place]t % (Auto) Lymph # [place]t # Baso # Seg Neutrophils % Seg Neuts % (Manual) 90.5 H Lymphocytes % (Manual) 1.0 L Seg Neutrophils # Seg Neutrophils # Man 35.1 H Lymphocytes # (Manual) 0.4 L PT INR D-Dimer ABG pH ABG pO2 ABG HCO3 ABG O2 Saturation ABG Base Excess ABG Hemoglobin Oxyhemoglobin Sodium 131 L Potassium Chloride 96.9 L Carbon Dioxide 18 L BUN 23 H Creatinine 0.5 L Glucose POC Glucose Lactic Acid Calcium 8.0 L Magnesium Iron TIBC Ferritin AST ALT Lactate Dehydrogenase Troponin T C-Reactive Protein Total Protein Albumin Cholesterol LDL Cholesterol Direct HDL Cholesterol Urine WBC (Auto) Vancomycin Trough Coronavirus (PCR) Crossmatch See Detail 07/06/19 07/06/19 07/06/19 12:38 14:39 20:00 WBC RBC Hgb Hct MCV MCH MCHC RDW Plt Count Lymph % (Auto) Knott % (Auto) Lymph # K[place]t # Baso # Seg Neutrophils % Seg Neuts % (Manual) Lymphocytes % (Manual) Seg Neutrophils # Seg Neutrophils # Man Lymphocytes # (Manual) PT INR D-Dimer ABG pH ABG pO2 ABG HCO3 ABG O2 Saturation ABG Base Excess ABG Hemoglobin Oxyhemoglobin Sodium Potassium Chloride Carbon Dioxide BUN Creatinine Glucose POC Glucose 112 H 111 H 140 H Lactic Acid Calcium Magnesium Iron TIBC Ferritin AST ALT Lactate Dehydrogenase Troponin T C-Reactive Protein Total Protein Albumin Cholesterol LDL Cholesterol Direct HDL Cholesterol Urine WBC (Auto) Vancomycin Trough Coronavirus (PCR) Crossmatch 07/06/19 07/06/19 07/07/19 22:43 22:56 02:20 WBC RBC Hgb 7.9 L Hct 23.1 L MCV MCH MCHC RDW Plt Count Lymph % (Auto) Knott % (Auto) Lymph # K[place]t # Baso # Seg Neutrophils % Seg Neuts % (Manual) Lymphocytes % (Manual) Seg Neutrophils # Seg Neutrophils # Man Lymphocytes # (Manual) PT INR D-Dimer ABG pH ABG pO2 ABG HCO3 ABG O2 Saturation ABG Base Excess ABG Hemoglobin Oxyhemoglobin Sodium Potassium Chloride Carbon Dioxide BUN Creatinine Glucose POC Glucose 122 H 149 H Lactic Acid Calcium Magnesium Iron TIBC Ferritin AST ALT Lactate Dehydrogenase Troponin T C-Reactive Protein Total Protein Albumin Cholesterol LDL Cholesterol Direct HDL Cholesterol Urine WBC (Auto) Vancomycin Trough Coronavirus (PCR) Crossmatch 07/07/19 07/07/19 07/07/19 04:35 05:27 05:34 WBC 23.1 H RBC 3.00 L Hgb 8.1 L Hct 24.2 L MCV 81 L MCH 27 L MCHC RDW 20.6 H Plt Count Lymph % (Auto) Knott % (Auto) Lymph # [place]t # Baso # Seg Neutrophils % Seg Neuts % (Manual) 90.0 H Lymphocytes % (Manual) 2.0 L Seg Neutrophils # Seg Neutrophils # Man 20.8 H Lymphocytes # (Manual) 0.5 L PT INR D-Dimer ABG pH ABG pO2 65.8 L ABG HCO3 ABG O2 Saturation 92.2 L ABG Base Excess ABG Hemoglobin 8.3 L Oxyhemoglobin 90.6 L Sodium Potassium Chloride Carbon Dioxide BUN Creatinine Glucose POC Glucose 132 H Lactic Acid Calcium Magnesium Iron TIBC Ferritin AST ALT Lactate Dehydrogenase Troponin T C-Reactive Protein Total Protein Albumin Cholesterol LDL Cholesterol Direct HDL Cholesterol Urine WBC (Auto) Vancomycin Trough Coronavirus (PCR) Crossmatch 07/07/19 07/07/19 07/07/19 05:34 11:50 15:58 WBC RBC Hgb 8.1 L Hct 24.2 L MCV MCH MCHC RDW Plt Count Lymph % (Auto) Knott % (Auto) Lymph # [place]t # Baso # Seg Neutrophils % Seg Neuts % (Manual) Lymphocytes % (Manual) Seg Neutrophils # Seg Neutrophils # Man Lymphocytes # (Manual) PT INR D-Dimer ABG pH ABG pO2 ABG HCO3 ABG O2 Saturation ABG Base Excess ABG Hemoglobin Oxyhemoglobin Sodium 135 L Potassium 3.3 L Chloride Carbon Dioxide 20 L BUN 27 H Creatinine 0.6 L Glucose 121 H POC Glucose 123 H Lactic Acid Calcium 8.0 L Magnesium Iron TIBC Ferritin AST ALT Lactate Dehydrogenase Troponin T C-Reactive Protein Total Protein Albumin Cholesterol LDL Cholesterol Direct HDL Cholesterol Urine WBC (Auto) Vancomycin Trough Coronavirus (PCR) Crossmatch 07/07/19 07/07/19 07/07/19 17:42 22:00 23:53 WBC RBC Hgb 8.0 L Hct 23.4 L MCV MCH MCHC RDW Plt Count Lymph % (Auto) Knott % (Auto) Lymph # [place]t # Baso # Seg Neutrophils % Seg Neuts % (Manual) Lymphocytes % (Manual) Seg Neutrophils # Seg Neutrophils # Man Lymphocytes # (Manual) PT INR D-Dimer ABG pH ABG pO2 ABG HCO3 ABG O2 Saturation ABG Base Excess ABG Hemoglobin Oxyhemoglobin Sodium Potassium Chloride Carbon Dioxide BUN Creatinine Glucose POC Glucose 107 H 117 H Lactic Acid Calcium Magnesium Iron TIBC Ferritin AST ALT Lactate Dehydrogenase Troponin T C-Reactive Protein Total Protein Albumin Cholesterol LDL Cholesterol Direct HDL Cholesterol Urine WBC (Auto) Vancomycin Trough Coronavirus (PCR) Crossmatch 07/08/19 07/08/19 07/08/19 00:45 00:45 00:45 WBC RBC Hgb Hct MCV MCH MCHC RDW Plt Count Lymph % (Auto) Knott % (Auto) Lymph # [place]t # Baso # Seg Neutrophils % Seg Neuts % (Manual) Lymphocytes % (Manual) Seg Neutrophils # Seg Neutrophils # Man Lymphocytes # (Manual) PT INR D-Dimer 1142.18 H ABG pH ABG pO2 ABG HCO3 ABG O2 Saturation ABG Base Excess ABG Hemoglobin Oxyhemoglobin Sodium Potassium Chloride Carbon Dioxide BUN Creatinine Glucose POC Glucose Lactic Acid Calcium Magnesium Iron TIBC Ferritin 839.0 H AST ALT Lactate Dehydrogenase 253 H Troponin T C-Reactive Protein 18.90 H Total Protein Albumin Cholesterol LDL Cholesterol Direct HDL Cholesterol Urine WBC (Auto) Vancomycin Trough Coronavirus (PCR) Crossmatch 07/08/19 07/08/19 07/08/19 04:30 05:11 12:02 WBC RBC Hgb Hct MCV MCH MCHC RDW Plt Count Lymph % (Auto) Knott % (Auto) Lymph # [place]t # Baso # Seg Neutrophils % Seg Neuts % (Manual) Lymphocytes % (Manual) Seg Neutrophils # Seg Neutrophils # Man Lymphocytes # (Manual) PT INR D-Dimer ABG pH ABG pO2 66.0 L ABG HCO3 ABG O2 Saturation 92.3 L ABG Base Excess ABG Hemoglobin 7.7 L Oxyhemoglobin 90.7 L Sodium Potassium Chloride Carbon Dioxide BUN Creatinine Glucose POC Glucose 108 H 153 H Lactic Acid Calcium Magnesium Iron TIBC Ferritin AST ALT Lactate Dehydrogenase Troponin T C-Reactive Protein Total Protein Albumin Cholesterol LDL Cholesterol Direct HDL Cholesterol Urine WBC (Auto) Vancomycin Trough Coronavirus (PCR) Crossmatch 07/08/19 07/08/19 07/08/19 16:15 18:22 23:35 WBC RBC Hgb Hct MCV MCH MCHC RDW Plt Count Lymph % (Auto) Knott % (Auto) Lymph # [place]t # Baso # Seg Neutrophils % Seg Neuts % (Manual) Lymphocytes % (Manual) Seg Neutrophils # Seg Neutrophils # Man Lymphocytes # (Manual) PT INR D-Dimer ABG pH ABG pO2 ABG HCO3 ABG O2 Saturation ABG Base Excess ABG Hemoglobin Oxyhemoglobin Sodium 134 L Potassium 3.3 L Chloride Carbon Dioxide 21 L BUN 27 H Creatinine 0.6 L Glucose 146 H POC Glucose 134 H 133 H Lactic Acid Calcium Magnesium Iron TIBC Ferritin AST ALT Lactate Dehydrogenase Troponin T C-Reactive Protein Total Protein Albumin Cholesterol LDL Cholesterol Direct HDL Cholesterol Urine WBC (Auto) Vancomycin Trough Coronavirus (PCR) Crossmatch 07/09/19 07/09/19 07/09/19 04:30 04:30 05:00 WBC 18.9 H RBC 2.77 L Hgb 7.4 L Hct 22.8 L MCV 82 L MCH 27 L MCHC RDW 20.9 H Plt Count 130 L Lymph % (Auto) Knott % (Auto) Lymph # [place]t # Baso # Seg Neutrophils % Seg Neuts % (Manual) 84.0 H Lymphocytes % (Manual) 0 L Seg Neutrophils # Seg Neutrophils # Man 15.9 H Lymphocytes # (Manual) 0.0 L PT INR D-Dimer ABG pH ABG pO2 ABG HCO3 ABG O2 Saturation ABG Base Excess ABG Hemoglobin Oxyhemoglobin Sodium Potassium 3.1 L Chloride Carbon Dioxide BUN 26 H Creatinine 0.5 L Glucose 125 H POC Glucose 155 H Lactic Acid Calcium Magnesium Iron TIBC Ferritin AST ALT Lactate Dehydrogenase Troponin T C-Reactive Protein Total Protein Albumin Cholesterol LDL Cholesterol Direct HDL Cholesterol Urine WBC (Auto) Vancomycin Trough Coronavirus (PCR) Crossmatch 07/09/19 07/09/19 07/09/19 05:55 12:22 17:50 WBC RBC Hgb Hct MCV MCH MCHC RDW Plt Count Lymph % (Auto) [place] % (Auto) Lymph # [place] # Baso # Seg Neutrophils % Seg Neuts % (Manual) Lymphocytes % (Manual) Seg Neutrophils # Seg Neutrophils # Man Lymphocytes # (Manual) PT INR D-Dimer ABG pH ABG pO2 62.8 L ABG HCO3 ABG O2 Saturation ABG Base Excess ABG Hemoglobin 6.1 L Oxyhemoglobin 93.9 L Sodium Potassium Chloride Carbon Dioxide BUN Creatinine Glucose POC Glucose 115 H 133 H Lactic Acid Calcium Magnesium Iron TIBC Ferritin AST ALT Lactate Dehydrogenase Troponin T C-Reactive Protein Total Protein Albumin Cholesterol LDL Cholesterol Direct HDL Cholesterol Urine WBC (Auto) Vancomycin Trough Coronavirus (PCR) Crossmatch 07/10/19 07/10/19 07/10/19 00:38 04:00 04:00 WBC RBC Hgb Hct MCV MCH MCHC RDW Plt Count Lymph % (Auto) [place] % (Auto) Lymph # [place] # Baso # Seg Neutrophils % Seg Neuts % (Manual) Lymphocytes % (Manual) Seg Neutrophils # Seg Neutrophils # Man Lymphocytes # (Manual) PT INR D-Dimer ABG pH ABG pO2 ABG HCO3 ABG O2 Saturation ABG Base Excess ABG Hemoglobin Oxyhemoglobin Sodium Potassium Chloride 107.9 H Carbon Dioxide BUN 26 H Creatinine 0.4 L Glucose 137 H POC Glucose 122 H Lactic Acid Calcium Magnesium 1.50 L Iron TIBC Ferritin AST ALT Lactate Dehydrogenase 277 H Troponin T C-Reactive Protein 15.10 H Total Protein Albumin Cholesterol LDL Cholesterol Direct HDL Cholesterol Urine WBC (Auto) Vancomycin Trough Coronavirus (PCR) Crossmatch 07/10/19 07/10/19 07/10/19 04:07 05:21 17:25 WBC RBC Hgb Hct MCV MCH MCHC RDW Plt Count Lymph % (Auto) [place] % (Auto) Lymph # [place] # Baso # Seg Neutrophils % Seg Neuts % (Manual) Lymphocytes % (Manual) Seg Neutrophils # Seg Neutrophils # Man Lymphocytes # (Manual) PT INR D-Dimer ABG pH ABG pO2 65.6 L ABG HCO3 26.3 H ABG O2 Saturation ABG Base Excess ABG Hemoglobin 6.7 L Oxyhemoglobin Sodium Potassium Chloride Carbon Dioxide BUN Creatinine Glucose POC Glucose 144 H 113 H Lactic Acid Calcium Magnesium Iron TIBC Ferritin AST ALT Lactate Dehydrogenase Troponin T C-Reactive Protein Total Protein Albumin Cholesterol LDL Cholesterol Direct HDL Cholesterol Urine WBC (Auto) Vancomycin Trough Coronavirus (PCR) Crossmatch 07/11/19 07/11/19 07/11/19 00:07 05:14 05:25 WBC RBC Hgb Hct MCV MCH MCHC RDW Plt Count Lymph % (Auto) [place] % (Auto) Lymph # [place] # Baso # Seg Neutrophils % Seg Neuts % (Manual) Lymphocytes % (Manual) Seg Neutrophils # Seg Neutrophils # Man Lymphocytes # (Manual) PT INR D-Dimer ABG pH ABG pO2 ABG HCO3 ABG O2 Saturation ABG Base Excess ABG Hemoglobin 5.8 L Oxyhemoglobin Sodium Potassium Chloride 108.0 H Carbon Dioxide BUN 26 H Creatinine 0.4 L Glucose 110 H POC Glucose 121 H Lactic Acid Calcium Magnesium Iron TIBC Ferritin AST ALT Lactate Dehydrogenase Troponin T C-Reactive Protein Total Protein Albumin Cholesterol LDL Cholesterol Direct HDL Cholesterol Urine WBC (Auto) Vancomycin Trough Coronavirus (PCR) Crossmatch 07/11/19 07/11/19 07/11/19 12:27 18:00 23:42 WBC RBC Hgb Hct MCV MCH MCHC RDW Plt Count Lymph % (Auto) [place] % (Auto) Lymph # [place] # Baso # Seg Neutrophils % Seg Neuts % (Manual) Lymphocytes % (Manual) Seg Neutrophils # Seg Neutrophils # Man Lymphocytes # (Manual) PT INR D-Dimer ABG pH ABG pO2 ABG HCO3 ABG O2 Saturation ABG Base Excess ABG Hemoglobin Oxyhemoglobin Sodium Potassium Chloride Carbon Dioxide BUN Creatinine Glucose POC Glucose 158 H 141 H 142 H Lactic Acid Calcium Magnesium Iron TIBC Ferritin AST ALT Lactate Dehydrogenase Troponin T C-Reactive Protein Total Protein Albumin Cholesterol LDL Cholesterol Direct HDL Cholesterol Urine WBC (Auto) Vancomycin Trough Coronavirus (PCR) Crossmatch 07/12/19 07/12/19 07/12/19 04:46 04:46 05:23 WBC 23.6 H RBC 2.51 L Hgb 6.7 L Hct 20.8 L MCV 83 L MCH 27 L MCHC RDW 20.3 H Plt Count Lymph % (Auto) [place] % (Auto) Lymph # [place] # Baso # Seg Neutrophils % Seg Neuts % (Manual) 94.0 H Lymphocytes % (Manual) 4.0 L Seg Neutrophils # Seg Neutrophils # Man 22.2 H Lymphocytes # (Manual) 0.9 L PT INR D-Dimer ABG pH ABG pO2 ABG HCO3 ABG O2 Saturation ABG Base Excess ABG Hemoglobin Oxyhemoglobin Sodium Potassium Chloride 107.1 H Carbon Dioxide BUN 25 H Creatinine 0.4 L Glucose 122 H POC Glucose 118 H Lactic Acid Calcium Magnesium Iron TIBC Ferritin AST ALT Lactate Dehydrogenase Troponin T C-Reactive Protein Total Protein Albumin Cholesterol LDL Cholesterol Direct HDL Cholesterol Urine WBC (Auto) Vancomycin Trough Coronavirus (PCR) Crossmatch 07/12/19 07/12/19 07/12/19 08:49 11:36 18:15 WBC RBC Hgb Hct MCV MCH MCHC RDW Plt Count Lymph % (Auto) [place] % (Auto) Lymph # [place] # Baso # Seg Neutrophils % Seg Neuts % (Manual) Lymphocytes % (Manual) Seg Neutrophils # Seg Neutrophils # Man Lymphocytes # (Manual) PT INR D-Dimer ABG pH ABG pO2 ABG HCO3 ABG O2 Saturation ABG Base Excess ABG Hemoglobin Oxyhemoglobin Sodium Potassium Chloride Carbon Dioxide BUN Creatinine Glucose POC Glucose 124 H 110 H Lactic Acid Calcium Magnesium Iron TIBC Ferritin AST ALT Lactate Dehydrogenase Troponin T C-Reactive Protein Total Protein Albumin Cholesterol LDL Cholesterol Direct HDL Cholesterol Urine WBC (Auto) Vancomycin Trough Coronavirus (PCR) Crossmatch See Detail 07/12/19 07/13/19 07/13/19 23:16 05:26 06:50 WBC 23.9 H RBC 2.58 L Hgb 6.9 L Hct 21.5 L MCV 83 L MCH 27 L MCHC RDW 19.0 H Plt Count Lymph % (Auto) [place] % (Auto) Lymph # [place] # Baso # Seg Neutrophils % Seg Neuts % (Manual) 96.0 H Lymphocytes % (Manual) 3.0 L Seg Neutrophils # Seg Neutrophils # Man 22.9 H Lymphocytes # (Manual) 0.7 L PT INR D-Dimer ABG pH ABG pO2 ABG HCO3 ABG O2 Saturation ABG Base Excess ABG Hemoglobin Oxyhemoglobin Sodium Potassium Chloride Carbon Dioxide BUN Creatinine Glucose POC Glucose 108 H 126 H Lactic Acid Calcium Magnesium Iron TIBC Ferritin AST ALT Lactate Dehydrogenase Troponin T C-Reactive Protein Total Protein Albumin Cholesterol LDL Cholesterol Direct HDL Cholesterol Urine WBC (Auto) Vancomycin Trough Coronavirus (PCR) Crossmatch 07/13/19 07/13/19 07/13/19 06:50 12:38 18:05 WBC RBC Hgb Hct MCV MCH MCHC RDW Plt Count Lymph % (Auto) [place] % (Auto) Lymph # [place] # Baso # Seg Neutrophils % Seg Neuts % (Manual) Lymphocytes % (Manual) Seg Neutrophils # Seg Neutrophils # Man Lymphocytes # (Manual) PT INR D-Dimer ABG pH ABG pO2 ABG HCO3 ABG O2 Saturation ABG Base Excess ABG Hemoglobin Oxyhemoglobin Sodium Potassium Chloride Carbon Dioxide BUN 33 H Creatinine 0.5 L Glucose 136 H POC Glucose 164 H 145 H Lactic Acid Calcium Magnesium Iron TIBC Ferritin AST ALT Lactate Dehydrogenase Troponin T C-Reactive Protein Total Protein Albumin Cholesterol LDL Cholesterol Direct HDL Cholesterol Urine WBC (Auto) Vancomycin Trough Coronavirus (PCR) Crossmatch 07/13/19 07/14/19 07/14/19 18:30 00:21 04:40 WBC 22.9 H RBC 2.45 L Hgb 6.6 L Hct 21.1 L MCV MCH 27 L MCHC 31 L RDW 19.2 H Plt Count Lymph % (Auto) [place] % (Auto) Lymph # [place] # Baso # Seg Neutrophils % Seg Neuts % (Manual) 91.0 H Lymphocytes % (Manual) 7.0 L Seg Neutrophils # Seg Neutrophils # Man 20.8 H Lymphocytes # (Manual) PT INR D-Dimer ABG pH ABG pO2 58.1 L ABG HCO3 ABG O2 Saturation 88.7 L ABG Base Excess ABG Hemoglobin 7.8 L Oxyhemoglobin 86.8 L Sodium Potassium Chloride Carbon Dioxide BUN Creatinine Glucose POC Glucose 118 H Lactic Acid Calcium Magnesium Iron TIBC Ferritin AST ALT Lactate Dehydrogenase Troponin T C-Reactive Protein Total Protein Albumin Cholesterol LDL Cholesterol Direct HDL Cholesterol Urine WBC (Auto) Vancomycin Trough Coronavirus (PCR) Crossmatch 07/14/19 07/14/19 07/14/19 04:40 05:38 05:45 WBC RBC Hgb Hct MCV MCH MCHC RDW Plt Count Lymph % (Auto) [place] % (Auto) Lymph # [place] # Baso # Seg Neutrophils % Seg Neuts % (Manual) Lymphocytes % (Manual) Seg Neutrophils # Seg Neutrophils # Man Lymphocytes # (Manual) PT INR D-Dimer ABG pH 7.230 L ABG pO2 72.1 L ABG HCO3 ABG O2 Saturation 89.3 L ABG Base Excess -2.7 L ABG Hemoglobin 6.7 L Oxyhemoglobin 87.7 L Sodium Potassium Chloride 107.4 H Carbon Dioxide BUN 45 H Creatinine Glucose 101 H POC Glucose 154 H Lactic Acid Calcium Magnesium Iron TIBC Ferritin AST ALT Lactate Dehydrogenase Troponin T C-Reactive Protein Total Protein Albumin Cholesterol LDL Cholesterol Direct HDL Cholesterol Urine WBC (Auto) Vancomycin Trough Coronavirus (PCR) Crossmatch 07/14/19 07/14/19 07/14/19 12:25 18:20 19:01 WBC 22.4 H RBC 2.70 L Hgb 7.5 L Hct 23.3 L MCV MCH MCHC RDW 19.5 H Plt Count Lymph % (Auto) [place] % (Auto) Lymph # [place] # Baso # Seg Neutrophils % Seg Neuts % (Manual) Lymphocytes % (Manual) Seg Neutrophils # Seg Neutrophils # Man Lymphocytes # (Manual) PT INR D-Dimer ABG pH ABG pO2 ABG HCO3 ABG O2 Saturation ABG Base Excess ABG Hemoglobin Oxyhemoglobin Sodium Potassium Chloride Carbon Dioxide BUN Creatinine Glucose POC Glucose 136 H 131 H Lactic Acid Calcium Magnesium Iron TIBC Ferritin AST ALT Lactate Dehydrogenase Troponin T C-Reactive Protein Total Protein Albumin Cholesterol LDL Cholesterol Direct HDL Cholesterol Urine WBC (Auto) Vancomycin Trough Coronavirus (PCR) Crossmatch 07/15/19 07/15/19 07/15/19 00:17 04:35 05:18 WBC 20.6 H RBC 2.41 L Hgb 6.8 L Hct 20.7 L MCV MCH MCHC RDW 20.2 H Plt Count Lymph % (Auto) [place] % (Auto) Lymph # [place] # Baso # Seg Neutrophils % Seg Neuts % (Manual) 92.0 H Lymphocytes % (Manual) 5.0 L Seg Neutrophils # Seg Neutrophils # Man 19.0 H Lymphocytes # (Manual) 1.0 L PT INR D-Dimer ABG pH 7.342 L ABG pO2 ABG HCO3 ABG O2 Saturation ABG Base Excess -3.1 L ABG Hemoglobin 7.2 L Oxyhemoglobin 94.9 L Sodium Potassium Chloride Carbon Dioxide BUN Creatinine Glucose POC Glucose 116 H Lactic Acid Calcium Magnesium Iron TIBC Ferritin AST ALT Lactate Dehydrogenase Troponin T C-Reactive Protein Total Protein Albumin Cholesterol LDL Cholesterol Direct HDL Cholesterol Urine WBC (Auto) Vancomycin Trough Coronavirus (PCR) Crossmatch 07/15/19 07/15/19 07/15/19 05:18 05:57 11:28 WBC RBC Hgb Hct MCV MCH MCHC RDW Plt Count Lymph % (Auto) [place] % (Auto) Lymph # [place] # Baso # Seg Neutrophils % Seg Neuts % (Manual) Lymphocytes % (Manual) Seg Neutrophils # Seg Neutrophils # Man Lymphocytes # (Manual) PT INR D-Dimer ABG pH ABG pO2 ABG HCO3 ABG O2 Saturation ABG Base Excess ABG Hemoglobin Oxyhemoglobin Sodium Potassium Chloride Carbon Dioxide 20 L BUN 59 H Creatinine Glucose 140 H POC Glucose 139 H 117 H Lactic Acid Calcium Magnesium Iron TIBC Ferritin AST ALT Lactate Dehydrogenase Troponin T C-Reactive Protein Total Protein Albumin Cholesterol LDL Cholesterol Direct HDL Cholesterol Urine WBC (Auto) Vancomycin Trough Coronavirus (PCR) Crossmatch 07/15/19 07/16/19 07/16/19 18:13 00:06 03:43 WBC RBC Hgb Hct MCV MCH MCHC RDW Plt Count Lymph % (Auto) [place] % (Auto) Lymph # [place] # Baso # Seg Neutrophils % Seg Neuts % (Manual) Lymphocytes % (Manual) Seg Neutrophils # Seg Neutrophils # Man Lymphocytes # (Manual) PT INR D-Dimer ABG pH 7.344 L ABG pO2 68.6 L ABG HCO3 ABG O2 Saturation ABG Base Excess -3.5 L ABG Hemoglobin 6.1 L Oxyhemoglobin 93.3 L Sodium Potassium Chloride Carbon Dioxide BUN Creatinine Glucose POC Glucose 114 H 119 H Lactic Acid Calcium Magnesium Iron TIBC Ferritin AST ALT Lactate Dehydrogenase Troponin T C-Reactive Protein Total Protein Albumin Cholesterol LDL Cholesterol Direct HDL Cholesterol Urine WBC (Auto) Vancomycin Trough Coronavirus (PCR) Crossmatch 07/16/19 07/16/19 07/16/19 04:41 04:41 12:09 WBC 19.6 H RBC 2.81 L Hgb 7.7 L Hct 24.0 L MCV MCH 27 L MCHC RDW 19.4 H Plt Count 514 H Lymph % (Auto) 6.7 L [place] % (Auto) Lymph # [place] # 1.0 H Baso # Seg Neutrophils % 87.0 H Seg Neuts % (Manual) Lymphocytes % (Manual) Seg Neutrophils # 17.0 H Seg Neutrophils # Man Lymphocytes # (Manual) PT INR D-Dimer ABG pH ABG pO2 ABG HCO3 ABG O2 Saturation ABG Base Excess ABG Hemoglobin Oxyhemoglobin Sodium Potassium 5.9 H Chloride Carbon Dioxide 21 L BUN 73 H Creatinine 2.0 H Glucose POC Glucose 141 H Lactic Acid Calcium Magnesium Iron TIBC Ferritin AST ALT Lactate Dehydrogenase Troponin T C-Reactive Protein Total Protein Albumin Cholesterol LDL Cholesterol Direct HDL Cholesterol Urine WBC (Auto) Vancomycin Trough Coronavirus (PCR) Crossmatch 07/16/19 07/16/19 07/17/19 16:19 17:45 00:16 WBC RBC Hgb Hct MCV MCH MCHC RDW Plt Count Lymph % (Auto) [place] % (Auto) Lymph # [place] # Baso # Seg Neutrophils % Seg Neuts % (Manual) Lymphocytes % (Manual) Seg Neutrophils # Seg Neutrophils # Man Lymphocytes # (Manual) PT INR D-Dimer ABG pH ABG pO2 ABG HCO3 ABG O2 Saturation ABG Base Excess ABG Hemoglobin Oxyhemoglobin Sodium Potassium 5.1 H Chloride Carbon Dioxide 20 L BUN 72 H Creatinine 1.7 H Glucose 128 H POC Glucose 181 H 164 H Lactic Acid Calcium Magnesium Iron TIBC Ferritin AST ALT Lactate Dehydrogenase Troponin T C-Reactive Protein Total Protein Albumin Cholesterol LDL Cholesterol Direct HDL Cholesterol Urine WBC (Auto) Vancomycin Trough Coronavirus (PCR) Crossmatch 07/17/19 07/17/19 07/17/19 04:20 04:39 04:39 WBC 16.1 H RBC 2.92 L Hgb 8.0 L Hct 25.5 L MCV MCH MCHC 31 L RDW 19.7 H Plt Count 564 H Lymph % (Auto) 3.6 L [place] % (Auto) 7.4 H Lymph # 0.6 L [place] # 1.2 H Baso # Seg Neutrophils % 87.5 H Seg Neuts % (Manual) Lymphocytes % (Manual) Seg Neutrophils # 14.1 H Seg Neutrophils # Man Lymphocytes # (Manual) PT INR D-Dimer ABG pH 7.231 L ABG pO2 95.3 H ABG HCO3 ABG O2 Saturation ABG Base Excess -5.0 L ABG Hemoglobin 7.9 L Oxyhemoglobin 94.8 L Sodium Potassium Chloride 107.8 H Carbon Dioxide 21 L BUN 68 H Creatinine Glucose POC Glucose Lactic Acid Calcium Magnesium Iron TIBC Ferritin AST ALT Lactate Dehydrogenase Troponin T C-Reactive Protein Total Protein Albumin Cholesterol LDL Cholesterol Direct HDL Cholesterol Urine WBC (Auto) Vancomycin Trough Coronavirus (PCR) Crossmatch 07/17/19 07/17/19 07/17/19 05:28 12:11 18:48 WBC RBC Hgb Hct MCV MCH MCHC RDW Plt Count Lymph % (Auto) [place] % (Auto) Lymph # [place] # Baso # Seg Neutrophils % Seg Neuts % (Manual) Lymphocytes % (Manual) Seg Neutrophils # Seg Neutrophils # Man Lymphocytes # (Manual) PT INR D-Dimer ABG pH ABG pO2 ABG HCO3 ABG O2 Saturation ABG Base Excess ABG Hemoglobin Oxyhemoglobin Sodium Potassium Chloride Carbon Dioxide BUN Creatinine Glucose POC Glucose 121 H 125 H 174 H Lactic Acid Calcium Magnesium Iron TIBC Ferritin AST ALT Lactate Dehydrogenase Troponin T C-Reactive Protein Total Protein Albumin Cholesterol LDL Cholesterol Direct HDL Cholesterol Urine WBC (Auto) Vancomycin Trough Coronavirus (PCR) Crossmatch 07/17/19 07/17/19 07/18/19 19:55 23:57 02:30 WBC RBC Hgb Hct MCV MCH MCHC RDW Plt Count Lymph % (Auto) [place] % (Auto) Lymph # [place] # Baso # Seg Neutrophils % Seg Neuts % (Manual) Lymphocytes % (Manual) Seg Neutrophils # Seg Neutrophils # Man Lymphocytes # (Manual) PT INR D-Dimer ABG pH 7.344 L 7.294 L ABG pO2 78.5 L 119.2 H ABG HCO3 ABG O2 Saturation ABG Base Excess -3.3 L -2.6 L ABG Hemoglobin 8.6 L 8.1 L Oxyhemoglobin 94.8 L Sodium Potassium Chloride Carbon Dioxide BUN Creatinine Glucose POC Glucose 148 H Lactic Acid Calcium Magnesium Iron TIBC Ferritin AST ALT Lactate Dehydrogenase Troponin T C-Reactive Protein Total Protein Albumin Cholesterol LDL Cholesterol Direct HDL Cholesterol Urine WBC (Auto) Vancomycin Trough Coronavirus (PCR) Crossmatch 07/18/19 07/18/19 07/18/19 04:49 05:22 05:22 WBC 15.9 H RBC 3.00 L Hgb 8.1 L Hct 26.0 L MCV MCH 27 L MCHC 31 L RDW 19.4 H Plt Count 733 H Lymph % (Auto) 6.3 L [place] % (Auto) 7.4 H Lymph # 1.0 L [place] # 1.2 H Baso # 0.2 H Seg Neutrophils % 83.8 H Seg Neuts % (Manual) Lymphocytes % (Manual) Seg Neutrophils # 13.3 H Seg Neutrophils # Man Lymphocytes # (Manual) PT INR D-Dimer ABG pH ABG pO2 ABG HCO3 ABG O2 Saturation ABG Base Excess ABG Hemoglobin Oxyhemoglobin Sodium Potassium Chloride 110.6 H Carbon Dioxide BUN 61 H Creatinine Glucose 109 H POC Glucose 116 H Lactic Acid Calcium Magnesium Iron TIBC Ferritin AST ALT Lactate Dehydrogenase Troponin T C-Reactive Protein Total Protein Albumin Cholesterol LDL Cholesterol Direct HDL Cholesterol Urine WBC (Auto) Vancomycin Trough Coronavirus (PCR) Crossmatch 07/18/19 07/18/19 07/18/19 12:23 18:06 22:20 WBC RBC Hgb Hct MCV MCH MCHC RDW Plt Count Lymph % (Auto) [place] % (Auto) Lymph # [place] # Baso # Seg Neutrophils % Seg Neuts % (Manual) Lymphocytes % (Manual) Seg Neutrophils # Seg Neutrophils # Man Lymphocytes # (Manual) PT INR D-Dimer ABG pH 7.338 L ABG pO2 135.1 H ABG HCO3 ABG O2 Saturation ABG Base Excess ABG Hemoglobin 9.2 L Oxyhemoglobin Sodium Potassium Chloride Carbon Dioxide BUN Creatinine Glucose POC Glucose 114 H 113 H Lactic Acid Calcium Magnesium Iron TIBC Ferritin AST ALT Lactate Dehydrogenase Troponin T C-Reactive Protein Total Protein Albumin Cholesterol LDL Cholesterol Direct HDL Cholesterol Urine WBC (Auto) Vancomycin Trough Coronavirus (PCR) Crossmatch 07/18/19 07/19/19 07/19/19 23:33 03:45 05:18 WBC RBC Hgb Hct MCV MCH MCHC RDW Plt Count Lymph % (Auto) [place] % (Auto) Lymph # [place] # Baso # Seg Neutrophils % Seg Neuts % (Manual) Lymphocytes % (Manual) Seg Neutrophils # Seg Neutrophils # Man Lymphocytes # (Manual) PT INR D-Dimer ABG pH 7.342 L ABG pO2 95.0 H ABG HCO3 ABG O2 Saturation ABG Base Excess ABG Hemoglobin 8.5 L Oxyhemoglobin Sodium Potassium Chloride Carbon Dioxide BUN Creatinine Glucose POC Glucose 125 H 111 H Lactic Acid Calcium Magnesium Iron TIBC Ferritin AST ALT Lactate Dehydrogenase Troponin T C-Reactive Protein Total Protein Albumin Cholesterol LDL Cholesterol Direct HDL Cholesterol Urine WBC (Auto) Vancomycin Trough Coronavirus (PCR) Crossmatch 07/19/19 08:45 WBC 15.9 H RBC 3.31 L Hgb 9.1 L Hct 28.4 L MCV MCH 27 L MCHC RDW 19.1 H Plt Count 858 H Lymph % (Auto) 4.9 L [place] % (Auto) 8.1 H Lymph # 0.8 L [place] # 1.3 H Baso # Seg Neutrophils % 85.5 H Seg Neuts % (Manual) Lymphocytes % (Manual) Seg Neutrophils # 13.6 H Seg Neutrophils # Man Lymphocytes # (Manual) PT INR D-Dimer ABG pH ABG pO2 ABG HCO3 ABG O2 Saturation ABG Base Excess ABG Hemoglobin Oxyhemoglobin Sodium Potassium Chloride Carbon Dioxide BUN Creatinine Glucose POC Glucose Lactic Acid Calcium Magnesium Iron TIBC Ferritin AST ALT Lactate Dehydrogenase Troponin T C-Reactive Protein Total Protein Albumin Cholesterol LDL Cholesterol Direct HDL Cholesterol Urine WBC (Auto) Vancomycin Trough Coronavirus (PCR) Crossmatch Chest x-ray: image reviewed Allied health notes reviewed: RT
[2019-07-19 09:17] LABS: BUN/Creatinine Ratio 71; Blood Urea Nitrogen 50 mg/dL (9-20); Hemolysis Index 5
--- NOTE | 2019-07-19 09:30 | Progress Note ---
Assessment and Plan 1. Hypoantremia: Suspect SIADH. Sodium level has improved, now 143. Monitor Sodium level. 2. FEN: Metabolic acidosis, monitor. Hyperkalemia, improved, monitor. Monitor volume status and lytes. 3. Acute kidney injury: Vasomotor MIRANDA likely 2/2 persistent hypotension. Creatinine is improving, now 0.7 from 1.1 from 1.4 from 2.0 from 1.5. Initial bump in creatinine was 07/14. Renal function is better. Monitor renal function. Avoid nephrotoxic agents. Meds dosage based on GFR. 4. Acute hypoxic respiratory failure: Currently intubated and on vent. Considering trach depending on family wishes. Pulmonary following. 5. Severe Sepsis, POA. Tachycardia is improving with metoprolol but still present. Still on levophed but titrated down which pt is tolerating. Followed by ID. 6. Severe COVID-19 pneumonia. 7. Shock: Still on pressors, titrating down. Receiving IV fluid bolus as needed for hypotension. Monitor BP closely. 8. Microcytic anemia, POA: Has received total of 4 units PRBC. Hgb improved 07/15 s/p PRBC. Monitor hgb. 9. Possible occlusion of PEG tube: Occlusion noted by staff. Imaging 07/16 confirmed [address] is in place. Staff using bicarb for declogging PRN and at this time, able to use vásquez ccessfully. 10. Diabetes mellitus. 11. COPD. 12. Encephalopathy, POA: Metabolic. Subjective Date of service: 07/19/19 Principal diagnosis: Bilateral pneumonia, severe sepsis with septic shock, encephalopathy Interval history: Patient was only seen from outside the glass door to prevent exposure to COVID- 19. PPE is also limited supply. Reviewed all notes, vitals, and labs to date. Discussed plan of care with primary RN. Objective - Exam Narrative Exam: General appearance: intubated on ventilator, carroll HEENT: not examined Neck: not examined Respiratory: not examined Heart: sinus tach on the monitor Gastrointestinal: not examined Integumentary: not examined Neurologic: not examined Ext: not examined - Vital Signs Vital signs: Vital Signs - 12hr 07/18/19 07/18/19 07/18/19 21:30 21:46 22:00 Temperature Pulse Rate 97 H 99 H 99 H Pulse Rate [ From Monitor] Pulse Rate [ None] Respiratory 20 20 20 Rate Blood Pressure 141/83 144/89 146/82 O2 Sat by Pulse 100 100 100 Oximetry 07/18/19 07/18/19 07/18/19 22:13 22:16 22:30 Temperature Pulse Rate 101 H 101 H 98 H Pulse Rate [ From Monitor] Pulse Rate [ None] Respiratory 20 20 Rate Blood Pressure 146/82 127/70 127/70 O2 Sat by Pulse 100 100 Oximetry 07/18/19 07/18/19 07/18/19 22:46 23:00 23:16 Temperature Pulse Rate 99 H 95 H 95 H Pulse Rate [ From Monitor] Pulse Rate [ None] Respiratory 20 20 20 Rate Blood Pressure 140/83 147/84 141/79 O2 Sat by Pulse 100 100 100 Oximetry 07/18/19 07/18/19 07/18/19 23:30 23:40 23:46 Temperature Pulse Rate 95 H 96 H 97 H Pulse Rate [ From Monitor] Pulse Rate [ None] Respiratory 20 20 Rate Blood Pressure 146/87 139/85 146/87 O2 Sat by Pulse 100 100 100 Oximetry 07/18/19 07/19/19 07/19/19 23:58 00:00 00:16 Temperature 98.8 F Pulse Rate 94 H 94 H 94 H Pulse Rate [ 94 H From Monitor] Pulse Rate [ None] Respiratory 20 20 20 Rate Blood Pressure 139/85 139/85 118/69 O2 Sat by Pulse 100 100 100 Oximetry 07/19/19 07/19/19 07/19/19 00:30 00:45 01:00 Temperature Pulse Rate 97 H 96 H 95 H Pulse Rate [ From Monitor] Pulse Rate [ None] Respiratory 20 20 20 Rate Blood Pressure 112/68 110/64 118/67 O2 Sat by Pulse 100 100 100 Oximetry 07/19/19 07/19/19 07/19/19 01:16 01:30 01:45 Temperature Pulse Rate 96 H 93 H 97 H Pulse Rate [ From Monitor] Pulse Rate [ None] Respiratory 20 20 20 Rate Blood Pressure 93/47 86/47 97/64 O2 Sat by Pulse 100 100 100 Oximetry 07/19/19 07/19/19 07/19/19 02:00 02:16 02:30 Temperature Pulse Rate 95 H 95 H 95 H Pulse Rate [ From Monitor] Pulse Rate [ None] Respiratory 20 20 20 Rate Blood Pressure 93/47 124/67 126/87 O2 Sat by Pulse 100 100 100 Oximetry 07/19/19 07/19/19 07/19/19 02:46 03:00 03:15 Temperature Pulse Rate 95 H 93 H 92 H Pulse Rate [ From Monitor] Pulse Rate [ None] Respiratory 20 20 20 Rate Blood Pressure 122/89 120/87 123/75 O2 Sat by Pulse 100 100 100 Oximetry 07/19/19 07/19/19 07/19/19 03:30 03:46 04:00 Temperature 98.9 F Pulse Rate 92 H 96 H 95 H Pulse Rate [ 95 H From Monitor] Pulse Rate [ None] Respiratory 20 26 H 20 Rate Blood Pressure 133/66 152/115 133/66 O2 Sat by Pulse 100 95 100 Oximetry 07/19/19 07/19/19 07/19/19 04:14 04:16 04:30 Temperature Pulse Rate 93 H 95 H 94 H Pulse Rate [ From Monitor] Pulse Rate [ None] Respiratory 19 20 Rate Blood Pressure 133/66 98/54 98/54 O2 Sat by Pulse 100 100 100 Oximetry 07/19/19 07/19/19 07/19/19 04:45 05:00 05:15 Temperature Pulse Rate 94 H 96 H 97 H Pulse Rate [ From Monitor] Pulse Rate [ None] Respiratory 20 20 19 Rate Blood Pressure 106/60 104/66 101/60 O2 Sat by Pulse 100 100 100 Oximetry 07/19/19 07/19/19 07/19/19 05:30 05:45 06:00 Temperature Pulse Rate 98 H 98 H 96 H Pulse Rate [ From Monitor] Pulse Rate [ None] Respiratory 20 19 20 Rate Blood Pressure 98/59 90/63 98/59 O2 Sat by Pulse 100 100 100 Oximetry 07/19/19 07/19/19 07/19/19 06:15 06:30 06:45 Temperature Pulse Rate 99 H 100 H 100 H Pulse Rate [ From Monitor] Pulse Rate [ None] Respiratory 20 20 20 Rate Blood Pressure 113/63 115/61 108/63 O2 Sat by Pulse 100 100 100 Oximetry 07/19/19 07/19/19 07/19/19 07:00 07:15 07:30 Temperature Pulse Rate 98 H 97 H 102 H Pulse Rate [ From Monitor] Pulse Rate [ None] Respiratory 20 21 16 Rate Blood Pressure 116/69 116/68 129/69 O2 Sat by Pulse 100 99 81 L Oximetry 07/19/19 07/19/19 07/19/19 07:36 07:46 08:00 Temperature 98.7 F Pulse Rate 99 H 98 H Pulse Rate [ 95 H From Monitor] Pulse Rate [ 101 H None] Respiratory 20 20 20 Rate Blood Pressure 111/62 115/64 O2 Sat by Pulse 100 100 100 Oximetry 07/19/19 07/19/19 07/19/19 08:15 08:30 08:46 Temperature Pulse Rate 98 H 100 H 101 H Pulse Rate [ From Monitor] Pulse Rate [ None] Respiratory 20 20 20 Rate Blood Pressure 122/64 115/67 106/65 O2 Sat by Pulse 100 100 100 Oximetry 07/19/19 09:00 Temperature Pulse Rate 102 H Pulse Rate [ From Monitor] Pulse Rate [ None] Respiratory 20 Rate Blood Pressure 111/69 O2 Sat by Pulse 100 Oximetry - Lab 07/19/19 08:45 07/19/19 08:45 Most recent lab results ABG pH 7.342 pH Units (7.350-7.450) L 07/19/19 03:45 ABG pCO2 45.2 mm Hg 07/19/19 03:45 ABG pO2 95.0 mm Hg (80.0-90.0) H 07/19/19 03:45 ABG HCO3 24.0 mmol/L (20.0-26.0) 07/19/19 03:45 ABG O2 Saturation 97.1 % (95.0-99.0) 07/19/19 03:45 Calcium 9.0 mg/dL (8.4-10.2) 07/19/19 08:45 Phosphorus 3.60 mg/dL (2.5-4.5) 07/05/19 04:00 Magnesium 1.80 mg/dL (1.7-2.3) 07/11/19 05:14 Medications & Allergies - Medications Allergies/Adverse Reactions: Allergies No Known Allergies Allergy (Unverified 09/09/16 16:29) Home Medications: Home Medications Medication Instructions Recorded Confirmed Last Taken Type Acetaminophen [Tylenol] 500 mg PO TID 07/04/19 07/04/19 Unknown History Albuterol Sulfate [Proair 90 mcg IH TID 07/04/19 07/04/19 Unknown History Digihaler] Amlodipine Besylate [Norvasc] 2.5 mg PO QDAY 07/04/19 07/04/19 Unknown History Aspirin [Aspirin BABY CHEW TAB] 81 mg PO QDAY 07/04/19 07/04/19 Unknown History Atorvastatin Calcium [Lipitor] 80 mg PO QDAY 07/04/19 07/04/19 Unknown History Benztropine Mesylate 0.5 mg PO QDAY 07/04/19 07/04/19 Unknown History Budesonide/Formoterol Fumarate 10.2 gm IH BID 07/04/19 07/04/19 Unknown History [Budesonide-Formoterol 160-4.5] Divalproex ER [DepaKOTE ER] 1,000 mg PO QDAY 07/04/19 07/04/19 Unknown History Docusate Sodium [Colace] 100 mg PO QDAY 07/04/19 07/04/19 Unknown History Folic Acid [Folvite] 1 mg PO QDAY 07/04/19 07/04/19 Unknown History Hydrophilic Ointment [Dermafix] 113 gm TP QDAY 07/04/19 07/04/19 Unknown History Losartan [Cozaar] 100 mg PO QDAY 07/04/19 07/04/19 Unknown History Metformin HCl [Metformin HCl ER] 500 mg PO QDAY 07/04/19 07/04/19 Unknown History Metoprolol Tartrate 25 mg PO BID 07/04/19 07/04/19 Unknown History Multivit with Minerals/Ginseng 1 each PO QDAY 07/04/19 07/04/19 Unknown History [Super Ginseng Multivit Cap] Quetiapine Fumarate [SEROquel Xr] 400 mg PO QHS 07/04/19 07/04/19 Unknown History Sertraline HCl [Zoloft] 100 mg PO QDAY 07/04/19 07/04/19 Unknown History Sildenafil Citrate [Viagra] 100 mg PO QDAY PRN 07/04/19 07/04/19 Unknown History Tamsulosin [Flomax] 0.4 mg PO QDAY 07/04/19 07/04/19 Unknown History Active Medications: Generic Name Dose Route Start Last Admin Trade Name Freq PRN Reason Stop Dose Admin Acetaminophen 650 mg 07/04/19 04:24 Tylenol KS Q6H PRN Pain MILD(1-3)/Fever >100.5/MURO Acetaminophen 650 mg 07/10/19 04:00 07/15/19 20:35 Tylenol PO 650 mg Q6HR PRN Administration Pain, Mild (1-3) FEVER Lipase/Protease/Amylase 1 each 07/04/19 10:04 07/17/19 21:42 Pancrewhitley Gilbert 10,500 Unit FEEDTUBE 1 each PRN PRN Administration For Clogged Feeding Tube Aspirin 81 mg 07/05/19 10:00 07/18/19 09:23 Baby Aspirin PO 81 mg QDAY TAMMIE Administration Dextrose 50 ml 07/04/19 06:54 D50w (25gm) Syringe IV Q30MIN PRN Hypoglycemia Protocol Docusate Sodium 100 mg 07/10/19 10:00 07/18/19 22:13 Colace PO 100 mg BID TAMMIE Administration Famotidine 20 mg 07/17/19 10:00 07/18/19 22:13 Pepcid PO 20 mg BID TAMMIE Administration Fentanyl 50 mcg 07/12/19 15:09 Sublimaze IV Q10MIN PRN ANALGESIA Folic Acid 1 mg 07/05/19 10:00 07/18/19 09:22 Folvite PO 1 mg QDAY TAMMIE Administration Hydrophilic Ointment 1 applic 07/03/19 19:56 07/05/19 17:42 Vaseline Lip Therapy TP 1 applic Q2HR PRN Administration Dry Lips Norepinephrine 4 mg in 250 mls @ 7.5 mls/hr 07/03/19 23:00 07/19/19 04:00 Levophed Drip 4 Mg/Ns 250 Ml IV 2 mcg/min TITR TAMMIE 7.5 mls/hr Titration Protocol 2 MCG/MIN Insulin Human Lispro 0 unit 07/07/19 12:00 07/19/19 05:45 Humalog SUB-Q Not Given Q6HR [facility] Protocol Levetiracetam 750 mg 07/06/19 11:00 07/18/19 22:14 Keppra FEEDTUBE 750 mg Q12HR TAMMIE Administration Metoprolol Tartrate 5 mg 07/12/19 15:08 07/12/19 15:30 Metoprolol IV 5 mg Q6HR PRN Administration Tachyarrhythmias Morphine Sulfate 2 mg 07/04/19 04:24 07/13/19 08:06 Morphine IV 2 mg Q4H PRN Administration Pain, Moderate (4-6) Multi-Ingred Cream/Lotion/Oil/Oint 1 applic 07/03/19 19:56 07/05/19 13:19 Artificial Tears Ophth Oint OU 1 applic Q4HR PRN Administration Dry Eye(s) Naloxone HCl 0.1 mg 07/04/19 04:24 Naloxone IV Q2MIN PRN Res Rate </= 8 or 02 SAT < 92% Scopolamine 1 each 07/10/19 11:00 07/16/19 10:05 Transderm-Scop TD 1 each Q3D TAMMIE Administration Simple Syrup 15 ml 07/04/19 10:04 07/10/19 21:56 Simple Syrup FEEDTUBE 15 ml PRN PRN Administration Hypoglycemia Simple Syrup 30 ml 07/04/19 10:04 Simple Syrup FEEDTUBE PRN PRN Hypoglycemia Sodium Bicarbonate 325 mg 07/04/19 10:04 07/17/19 21:42 Sodium Bicarbonate FEEDTUBE 325 mg PRN PRN Administration For Clogged Feeding Tube Sodium Chloride 10 ml 07/04/19 10:00 07/18/19 22:12 Sodium Chloride Flush Syringe 10 Ml IV 10 ml BID TAMMIE Administration Sodium Chloride 10 ml 07/04/19 04:24 Sodium Chloride Flush Syringe 10 Ml IV PRN PRN LINE FLUSH Sodium Hypochlorite 1 applic 07/10/19 14:00 07/18/19 21:25 Dakin's Half Strength TP 1 applicatio BID TAMMIE Administration
[2019-07-19] MEDS: ASPIRIN 81 MG TAB CHEW PO SCH (12:01)
[2019-07-19] MEDS: FOLIC ACID 1 MG TAB PO SCH (12:01)
[2019-07-19] MEDS: FAMOTIDINE 20 MG TAB PO SCH ×2 (12:01→21:10)
[2019-07-19] MEDS: DOCUSATE SODIUM 100 MG/10 ML ORAL LIQD PO SCH ×2 (12:01→21:09)
[2019-07-19] MEDS: levETIRAcetam 500 MG/5 ML ORAL LIQD FEEDTUBE SCH ×2 (12:02→21:09)
[2019-07-19] MEDS: SCOPOLAMINE TRANSDERMAL PATCH 72 HR TD SCH (12:04)
[2019-07-19] MEDS: SODIUM HYPOCHLORITE, DAKIN'S 1/2 STRENGTH (0.25%) 473 ML TOPICAL SOLN TP SCH ×2 (12:10→21:09)
--- NOTE | 2019-07-19 15:54 | Progress Note ---
Assessment and Plan Cultures: 07/03/2019 urine culture: No growth 07/03/2019 Tracheal aspirate: E.coli A/P: 69-year-old male with CVA, hypertension, dementia, schizophrenia, alcohol use disorder was admitted to the emergency room after being brought in by EMS with progressive shortness of breath and unresponsiveness. He was noted to have agonal breathing and a faint pulse requiring CPR. It seems patient was on hospice recently. #Shock, likely septic: Lactic acidosis. Remains off pressors. #Severe COVID-19 disease and pneumonia: Elevated markers. Completed Plaquenil. Completed Ceftriaxone for treatment E.coli in tracheal aspirate. #Acute respiratory failure: on mechanical ventilation. #Transaminitis: Likely from COVID-19, shock #Leucocytosis: ?reactive from above. Recs: continue supportive care for COVID-19 agree with DNR. Poor prognosis. It seems patient was on hospice recently Mekhi Barboza MD [facility], [place], [facility]ated [facility] ([facility]) M: [phone] O: [phone] F: [phone] Subjective Date of service: 07/19/19 Principal diagnosis: Bilateral pneumonia, severe sepsis with septic shock, encephalopathy Interval history: Afebrile with a stable white count of 16. Objective - Exam Narrative Exam: Physical Exam (reviewed in chart due to PPE conservation) Constitutional: intubated, sedated, on the vent Head, Ears, Nose: normocephalic, atraumatic Eyes: limited due to PPE conservation strategy Neck: intubated Oral: intubated Cardiovascular: limited due to PPE conservation strategy Respiratory: limited due to PPE conservation strategy GI: limited due to PPE conservation strategy Musculoskeletal: limited due to PPE conservation strategy Skin: limited due to PPE conservation strategy Hem/Lymphatic: limited due to PPE conservation strategy Psych: no agitation Neurological: sedated, intubated, on the vent, exam limited - Constitutional Vitals: Vital Signs Temp Pulse Resp BP Pulse Ox 98.7 F 105 H 20 115/67 100 07/19/19 08:00 07/19/19 15:30 07/19/19 15:30 07/19/19 15:30 07/19/19 15:30 Temperature -Last 24 Hours Temperature 98.7 F Temperature 98.9 F Temperature 98.8 F Temperature 98.7 F Temperature 96.8 F - Labs CBC & Chem 7: 07/19/19 08:45 07/19/19 08:45 Labs: Abnormal lab results 07/18/19 07/18/19 07/18/19 Range/Units 18:06 22:20 23:33 WBC (4.5-11.0) K/mm3 RBC (3.65-5.03) M/mm3 Hgb (11.8-15.2) gm/dl Hct (35.5-45.6) % MCH (28-32) pg RDW (13.2-15.2) % Plt Count (140-440) K/mm3 Lymph % (Auto) (13.4-35.0) % [place] % (Auto) (0.0-7.3) % Lymph # (1.2-5.4) K/mm3 [place] # (0.0-0.8) K/mm3 Seg Neutrophils % (40.0-70.0) % Seg Neutrophils # (1.8-7.7) K/mm3 ABG pH 7.338 L (7.350-7.450) pH Units ABG pO2 135.1 H (80.0-90.0) mm Hg ABG Hemoglobin 9.2 L (14.0-18.0) gm/dl Chloride (98-107) mmol/L BUN (9-20) mg/dL Creatinine (0.8-1.5) mg/dL Glucose (75-100) mg/dL POC Glucose 113 H 125 H (70-105) 07/19/19 07/19/19 07/19/19 Range/Units 03:45 05:18 08:45 WBC 15.9 H (4.5-11.0) K/mm3 RBC 3.31 L (3.65-5.03) M/mm3 Hgb 9.1 L (11.8-15.2) gm/dl Hct 28.4 L (35.5-45.6) % MCH 27 L (28-32) pg RDW 19.1 H (13.2-15.2) % Plt Count 858 H (140-440) K/mm3 Lymph % (Auto) 4.9 L (13.4-35.0) % [place] % (Auto) 8.1 H (0.0-7.3) % Lymph # 0.8 L (1.2-5.4) K/mm3 [place] # 1.3 H (0.0-0.8) K/mm3 Seg Neutrophils % 85.5 H (40.0-70.0) % Seg Neutrophils # 13.6 H (1.8-7.7) K/mm3 ABG pH 7.342 L (7.350-7.450) pH Units ABG pO2 95.0 H (80.0-90.0) mm Hg ABG Hemoglobin 8.5 L (14.0-18.0) gm/dl Chloride (98-107) mmol/L BUN (9-20) mg/dL Creatinine (0.8-1.5) mg/dL Glucose (75-100) mg/dL POC Glucose 111 H (70-105) 07/19/19 07/19/19 Range/Units 08:45 11:47 WBC (4.5-11.0) K/mm3 RBC (3.65-5.03) M/mm3 Hgb (11.8-15.2) gm/dl Hct (35.5-45.6) % MCH (28-32) pg RDW (13.2-15.2) % Plt Count (140-440) K/mm3 Lymph % (Auto) (13.4-35.0) % [place] % (Auto) (0.0-7.3) % Lymph # (1.2-5.4) K/mm3 [place] # (0.0-0.8) K/mm3 Seg Neutrophils % (40.0-70.0) % Seg Neutrophils # (1.8-7.7) K/mm3 ABG pH (7.350-7.450) pH Units ABG pO2 (80.0-90.0) mm Hg ABG Hemoglobin (14.0-18.0) gm/dl Chloride 111.6 H (98-107) mmol/L BUN 50 H (9-20) mg/dL Creatinine 0.7 L (0.8-1.5) mg/dL Glucose 118 H (75-100) mg/dL POC Glucose 114 H (70-105)
--- NOTE | 2019-07-19 16:17 | Progress Note ---
Assessment and Plan Assessment and plan: 69-year-old male patient with PMH of CVA with RHP, HTN, DM2, SCZ, Dementia, Alcohol use D/o, Seizure D/O, presents to the emergency department via EMS from home with progressive SOB and impending espiratory failure with an unresponsive . PT was intubated was admitted through emergency room to ICU treated for sepsis, b/l PNA, acute respiratory failure received antibiotics. Patient was tested positive for COVID19. Evaluated by ID , received antibiotics Plaquenil, and inflammatory markers were checked and followed. Patient was hypotensive requiring Levophed, continues to be hypotensive currently on Levophed, unable to wean remains intubated on ventilatory support, critically ill, DNR status howevcon r family wants full treatment. --COVid positive pneumonia with severe sepsis Received Plaquenil and cefepime, monitor off antibiotics ID following --Septic shock: On Levophed Persistent hypotension, titrate to systolic blood pressure more than 100 -- Acute respiratory Failure with Hypoxia Due to bilateral PNA with COVID 19 infection. On ventilatory support, unable to wean Pulmonary critical following --COPD with exacerbation Likely due to COVID-19 pneumonia Continue scheduled nebs --Anemia, Microcytic persistent s/p total 3 unit of PRBC, today Hb today 9.1 --Pressure Ulcers: POA buttocks, right lateral foot area wound and supportive care --Hyponatremia, resolved --DM type 2: Accu-Chek SCC tube feeding, insulin as needed --h/o HTN Essential, now hypotensive On Levophed --Seizure D/o/CVA/immobility/BIpolar D/o/SCZ Seizure precautions, antiepileptic medications --Severe PCM, TF supportive care, dietary following patient is DNR- Called and verified information Very poor prognosis, Recommend hospice 07/04: COVID +ve, start on plaquinil, called no answer 07/05: transfuse one unit PRBC, Hb dropped to ~6, called and updated 07/06; H&H stable, serum chemistry improved. On mechanical ventilation with high inflammatory markers. Continue Plaquenil and empiric antibiotics. ID following, prognosis remains guarded and extremely poor. 07/07: On mechanical ventilation with high inflammatory markers. Continue Plaquenil and empiric antibiotics. ID following, prognosis remains guarded and extremely poor. 07/08: Called today and verified the CODE STATUS. Patient remains DNR. He is still intubated, with poor prognosis. Continue to follow inflammatory markers. 07/09 wean off from vent as tolerated, completed empiric antibiotic and Plaquenil 07/10 wean off from vent as tolerated. poor prognosis 07/11 hb 6.7 today, transfuse one PRBC. wean off from vent as tolerated. poor prognosis 07/12 remains critically on vent. Hb 6.9 07/13 Hb dropped to 6.6, transfuse 1 unit of PRBC, remains on vent critically ill Hypotensive, fluid bolus, if no improvement start Levophed 07/14; remains anemic with hemoglobin of 6.8, received total 3 units of PRBC Additional 1 unit of PRBC today, stool for occult blood to rule out GI causes Started back on Levophed due to hypotension 07/15; patient remains critically ill, hypotensive on Levophed 07/16: Today remains intubated on vent, persistent hypotension on Levophed 07/17; clinically no change, pressor dependent[on Levophed] DNR status 07/18: Patient remains hypotensive requiring Levophed, intubated on vent Unable to wean, critically ill. DNR The high probability of a clinically significant, sudden or life threatening deterioration of the [respiratory, CVS, ACCOUNT [employer]ING] system(s) required my full and direct attention, intervention and personal management. The aggregate critical care time was [34] minutes. This time is in addition to time spent performing reported procedures but includes the following: [x] Data Review and interpretation [x] Patient assessment and monitoring of vital signs [x] Documentation [x] Medication orders and management Critical care time 34 minutes Disposition; wean as tolerated and extubate Possible LTAC/hospice placement History Interval history: Patient seen and examined in his room at bedside this morning Isolation to call followed, used PPE while examining the patient Patient remains intubated on ventilatory support, unable to wean Critically ill, afebrile, vital signs reviewed Hospitalist Physical - Constitutional Vitals: Temp Pulse Resp BP Pulse Ox 98.7 F 105 H 20 115/67 100 07/19/19 08:00 07/19/19 15:30 07/19/19 15:30 07/19/19 15:30 07/19/19 15:30 General appearance: Present: no acute distress, well-nourished, other (Orally intubated on vent) - EENT Eyes: Present: PERRL, EOM intact - Neck Neck: Present: supple, normal ROM - Respiratory Respiratory effort: normal Respiratory: bilateral: diminished, rhonchi, negative: rales, wheezing - Cardiovascular Rhythm: regular Heart Sounds: Present: S1 & S2 - Extremities Extremities: no ischemia, No edema - Abdominal General gastrointestinal: soft, non-distended, normal bowel sounds, other (PEG tube in place) - Integumentary Integumentary: Present: clear, warm - Psychiatric Psychiatric: other (Noncommunicative on vent) - Neurologic Neurologic: other (Intubated on vent) Results - Labs CBC & Chem 7: 07/19/19 08:45 07/19/19 08:45 Labs: Laboratory Last Values WBC 15.9 K/mm3 (4.5-11.0) H 07/19/19 08:45 RBC 3.31 M/mm3 (3.65-5.03) L 07/19/19 08:45 Hgb 9.1 gm/dl (11.8-15.2) L 07/19/19 08:45 Hct 28.4 % (35.5-45.6) L 07/19/19 08:45 MCV 86 fl (84-94) 07/19/19 08:45 MCH 27 pg (28-32) L 07/19/19 08:45 MCHC 32 % (32-34) 07/19/19 08:45 RDW 19.1 % (13.2-15.2) H 07/19/19 08:45 Plt Count 858 K/mm3 (140-440) H 07/19/19 08:45 Lymph % (Auto) 4.9 % (13.4-35.0) L 07/19/19 08:45 [place] % (Auto) 8.1 % (0.0-7.3) H 07/19/19 08:45 Eos % (Auto) 1.0 % (0.0-4.3) 07/19/19 08:45 Baso % (Auto) 0.5 % (0.0-1.8) 07/19/19 08:45 Lymph # 0.8 K/mm3 (1.2-5.4) L 07/19/19 08:45 [place] # 1.3 K/mm3 (0.0-0.8) H 07/19/19 08:45 Eos # 0.2 K/mm3 (0.0-0.4) 07/19/19 08:45 Baso # 0.1 K/mm3 (0.0-0.1) 07/19/19 08:45 Add Manual Diff Complete 07/15/19 05:18 Total Counted 100 07/15/19 05:18 Seg Neutrophils % 85.5 % (40.0-70.0) H 07/19/19 08:45 Seg Neuts % (Manual) 92.0 % (40.0-70.0) H 07/15/19 05:18 Band Neutrophils % 0 % 07/15/19 05:18 Lymphocytes % (Manual) 5.0 % (13.4-35.0) L 07/15/19 05:18 Reactive Lymphs % (Man) 0 % 07/15/19 05:18 Monocytes % (Manual) 3.0 % (0.0-7.3) 07/15/19 05:18 Eosinophils % (Manual) 0 % (0.0-4.3) 07/15/19 05:18 Basophils % (Manual) 0 % (0.0-1.8) 07/15/19 05:18 Metamyelocytes % 0 % 07/15/19 05:18 Myelocytes % 0 % 07/15/19 05:18 Promyelocytes % 0 % 07/15/19 05:18 Blast Cells % 0 % 07/15/19 05:18 Nucleated RBC % Not Reportable 07/15/19 05:18 Seg Neutrophils # 13.6 K/mm3 (1.8-7.7) H 07/19/19 08:45 Seg Neutrophils # Man 19.0 K/mm3 (1.8-7.7) H 07/15/19 05:18 Band Neutrophils # 0.0 K/mm3 07/15/19 05:18 Lymphocytes # (Manual) 1.0 K/mm3 (1.2-5.4) L 07/15/19 05:18 Abs React Lymphs (Man) 0.0 K/mm3 07/15/19 05:18 Monocytes # (Manual) 0.6 K/mm3 (0.0-0.8) 07/15/19 05:18 Eosinophils # (Manual) 0.0 K/mm3 (0.0-0.4) 07/15/19 05:18 Basophils # (Manual) 0.0 K/mm3 (0.0-0.1) 07/15/19 05:18 Metamyelocytes # 0.0 K/mm3 07/15/19 05:18 Myelocytes # 0.0 K/mm3 07/15/19 05:18 Promyelocytes # 0.0 K/mm3 07/15/19 05:18 Blast Cells # 0.0 K/mm3 07/15/19 05:18 WBC Morphology Not Reportable 07/15/19 05:18 Hypersegmented Neuts Not Reportable 07/15/19 05:18 Hyposegmented Neuts Not Reportable 07/15/19 05:18 Hypogranular Neuts Not Reportable 07/15/19 05:18 Smudge Cells Not Reportable 07/15/19 05:18 Toxic Granulation Not Reportable 07/15/19 05:18 Toxic Vacuolation Not Reportable 07/15/19 05:18 Dohle Bodies Not Reportable 07/15/19 05:18 Pelger-Huet Anomaly Not Reportable 07/15/19 05:18 Mendy Rods Not Reportable 07/15/19 05:18 Platelet Estimate Consistent w auto 07/15/19 05:18 Clumped Platelets Not Reportable 07/15/19 05:18 Plt Clumps, EDTA Not Reportable 07/15/19 05:18 Large Platelets Not Reportable 07/15/19 05:18 Giant Platelets Not Reportable 07/15/19 05:18 Platelet Satelliting Not Reportable 07/15/19 05:18 Plt Morphology Comment Not Reportable 07/15/19 05:18 RBC Morphology Not Reportable 07/15/19 05:18 Dimorphic RBCs Not Reportable 07/15/19 05:18 Polychromasia Not Reportable 07/15/19 05:18 Hypochromasia 2+ 07/15/19 05:18 Poikilocytosis Not Reportable 07/15/19 05:18 Anisocytosis 1+ 07/15/19 05:18 Microcytosis Few 07/15/19 05:18 Macrocytosis Not Reportable 07/15/19 05:18 Spherocytes Few 07/15/19 05:18 Pappenheimer Bodies Not Reportable 07/15/19 05:18 Sickle Cells Not Reportable 07/15/19 05:18 Target Cells Not Reportable 07/15/19 05:18 Tear Drop Cells Not Reportable 07/15/19 05:18 Ovalocytes Rare 07/15/19 05:18 Helmet Cells Not Reportable 07/15/19 05:18 Altman-Solomon Bodies Not Reportable 07/15/19 05:18 Bohannon Rings Not Reportable 07/15/19 05:18 Joanne Cells Not Reportable 07/15/19 05:18 Bite Cells Not Reportable 07/15/19 05:18 Crenated Cell Not Reportable 07/15/19 05:18 Elliptocytes Not Reportable 07/15/19 05:18 Acanthocytes (Spur) Not Reportable 07/15/19 05:18 Rouleaux Not Reportable 07/15/19 05:18 Hemoglobin C Crystals Not Reportable 07/15/19 05:18 Schistocytes Few 07/15/19 05:18 Malaria parasites Not Reportable 07/15/19 05:18 Jeevan Bodies Not Reportable 07/15/19 05:18 Hem Pathologist Commnt No 07/15/19 05:18 PT 16.0 Sec. (12.2-14.9) H 07/03/19 22:20 INR 1.26 (0.87-1.13) H 07/03/19 22:20 D-Dimer 1142.18 ng/mlDDU (0-234) H 07/08/19 00:45 ABG pH 7.342 pH Units (7.350-7.450) L 07/19/19 03:45 ABG pCO2 45.2 mm Hg 07/19/19 03:45 ABG pO2 95.0 mm Hg (80.0-90.0) H 07/19/19 03:45 ABG HCO3 24.0 mmol/L (20.0-26.0) 07/19/19 03:45 ABG O2 Saturation 97.1 % (95.0-99.0) 07/19/19 03:45 ABG O2 Content 11.6 (0.0-44) 07/19/19 03:45 ABG Base Excess -1.8 mmol/L (-2.0-3.0) 07/19/19 03:45 ABG Hemoglobin 8.5 gm/dl (14.0-18.0) L 07/19/19 03:45 ABG Carboxyhemoglobin 1.2 % (0.0-5.0) 07/19/19 03:45 ABG Methemoglobin 0.4 % (0.0-1.5) 07/19/19 03:45 Oxyhemoglobin 95.5 % (95.0-99.0) 07/19/19 03:45 FiO2 50 % 07/19/19 03:45 Sodium 143 mmol/L (137-145) 07/19/19 08:45 Potassium 4.0 mmol/L (3.6-5.0) 07/19/19 08:45 Chloride 111.6 mmol/L (98-107) H 07/19/19 08:45 Carbon Dioxide 22 mmol/L (22-30) 07/19/19 08:45 Anion Gap 13 mmol/L 07/19/19 08:45 BUN 50 mg/dL (9-20) H 07/19/19 08:45 Creatinine 0.7 mg/dL (0.8-1.5) L 07/19/19 08:45 Estimated GFR > 60 ml/min 07/19/19 08:45 BUN/Creatinine Ratio 71 % 07/19/19 08:45 Glucose 118 mg/dL (75-100) H 07/19/19 08:45 POC Glucose 114 (70-105) H 07/19/19 11:47 Osmolality 268 Mosm/kg 07/05/19 04:00 Lactic Acid 3.30 mmol/L (0.7-2.0) H* 07/04/19 07:05 Uric Acid 7.2 mg/dL (3.5-7.6) 07/05/19 04:00 Calcium 9.0 mg/dL (8.4-10.2) 07/19/19 08:45 Phosphorus 3.60 mg/dL (2.5-4.5) 07/05/19 04:00 Magnesium 1.80 mg/dL (1.7-2.3) 07/11/19 05:14 Iron 9 ug/dL (49-181) L 07/04/19 07:05 TIBC 97 mcg/dL (250-450) L 07/04/19 07:05 Ferritin 839.0 ng/mL (13.0-400.0) H 07/08/19 00:45 Total Bilirubin 0.20 mg/dL (0.1-1.2) 07/04/19 07:05 AST 73 units/L (5-40) H 07/04/19 07:05 ALT 91 units/L (7-56) H 07/04/19 07:05 Alkaline Phosphatase 114 units/L (35-129) 07/04/19 07:05 Ammonia 35.0 umol/L (25-60) 07/03/19 23:58 Lactate Dehydrogenase 277 units/L (91-180) H 07/10/19 04:00 Troponin T 0.013 ng/mL (0.00-0.029) 07/04/19 07:05 C-Reactive Protein 15.10 mg/dL (0.00-1.30) H 07/10/19 04:00 Total Protein 5.5 g/dL (6.3-8.2) L 07/04/19 07:05 Albumin 2.0 g/dL (3.9-5) L 07/04/19 07:05 Albumin/Globulin Ratio 0.6 % 07/04/19 07:05 Triglycerides 33 mg/dL (2-149) 07/03/19 19:57 Cholesterol 47 mg/dL (50-199) L 07/03/19 19:57 LDL Cholesterol Direct 25 mg/dL (50-130) L 07/03/19 19:57 HDL Cholesterol 20 mg/dL (40-59) L 07/03/19 19:57 Cholesterol/HDL Ratio 2.35 % 07/03/19 19:57 Procalcitonin 1.25 ng/mL (<0.15) 07/10/19 04:00 TSH 2.170 mlU/mL (0.270-4.200) 07/03/19 22:20 Total Cortisol 28.0 mcg/dL () 07/05/19 10:11 Urine Color Naima (Yellow) 07/03/19 21:13 Urine Turbidity Cloudy (Clear) 07/03/19 21:13 Urine pH 5.0 (5.0-7.0) 07/03/19 21:13 Ur Specific [place] 1.016 (1.003-1.030) 07/03/19 21:13 Urine Protein 30 mg/dl mg/dL (Negative) 07/03/19 21:13 Urine Glucose (UA) Neg mg/dL (Negative) 07/03/19 21:13 Urine Ketones Neg mg/dL (Negative) 07/03/19 21:13 Urine Blood Neg (Negative) 07/03/19 21:13 Urine Nitrite Neg (Negative) 07/03/19 21:13 Urine Bilirubin Neg (Negative) 07/03/19 21:13 Urine Urobilinogen 2.0 mg/dL (<2.0) 07/03/19 21:13 Ur Leukocyte Esterase Neg (Negative) 07/03/19 21:13 Urine WBC (Auto) 12.0 /HPF (0.0-6.0) H 07/03/19 21:13 Urine RBC (Auto) 6.0 /HPF (0.0-6.0) 07/03/19 21:13 U Epithel Cells (Auto) 1.0 /HPF (0-13.0) 07/03/19 21:13 Urine Bacteria (Auto) 1+ /HPF (Negative) 07/03/19 21:13 Urine WBC Clumps Few /HPF 07/03/19 21:13 Urine Mucus Few /HPF 07/03/19 21:13 Urine Osmolality 293 Mosm/kg 07/05/19 08:15 Vancomycin Trough 23.2 ug/mL (5.0-20.0) H 07/05/19 17:54 Urine Opiates Screen Presumptive negative 07/03/19 21:13 Urine Methadone Screen Presumptive negative 07/03/19 21:13 Ur Barbiturates Screen Presumptive negative 07/03/19 21:13 Ur Phencyclidine Scrn Presumptive negative 07/03/19 21:13 Ur Amphetamines Screen Presumptive negative 07/03/19 21:13 U Benzodiazepines Scrn Presumptive negative 07/03/19 21:13 Urine Cocaine Screen Presumptive negative 07/03/19 21:13 U Marijuana (THC) Screen Presumptive negative 07/03/19 21:13 Drugs of Abuse Note Disclamer 07/03/19 21:13 Plasma/Serum Alcohol < 0.01 % (0-0.07) 07/03/19 23:58 Coronavirus (PCR) Positive (Negative) A 07/04/19 10:09 Blood Type B POSITIVE 07/12/19 08:49 Antibody Screen Negative 07/12/19 08:49 Crossmatch See Detail 07/12/19 08:49 Wright/IV: Voiding Method Indwelling Catheter IV Catheter Type [Left Upper Mid-line arm] IV Catheter Type [Right INT / Saline Lock Forearm] IV Catheter Type [Right Hand] INT / Saline Lock IV Catheter Type [Right CVL Femoral] IV Catheter Type [Left INT / Saline Lock External Jugular] Active Medications - Current Medications Current Medications: Generic Name Dose Route Start Last Admin Trade Name Freq PRN Reason Stop Dose Admin Acetaminophen 650 mg 07/04/19 04:24 Tylenol W[place] Q6H PRN Pain MILD(1-3)/Fever >100.5/MURO Acetaminophen 650 mg 07/10/19 04:00 07/15/19 20:35 Tylenol PO 650 mg Q6HR PRN Administration Pain, Mild (1-3) FEVER Lipase/Protease/Amylase 1 each 07/04/19 10:04 07/17/19 21:42 Pancrewhitley Gilbert 10,500 Unit FEEDTUBE 1 each PRN PRN Administration For Clogged Feeding Tube Aspirin 81 mg 07/05/19 10:00 07/19/19 12:01 Baby Aspirin PO 81 mg QDAY TAMMIE Administration Dextrose 50 ml 07/04/19 06:54 D50w (25gm) Syringe IV Q30MIN PRN Hypoglycemia Protocol Docusate Sodium 100 mg 07/10/19 10:00 07/19/19 12:01 Colace PO 100 mg BID TAMMIE Administration Famotidine 20 mg 07/17/19 10:00 07/19/19 12:01 Pepcid PO 20 mg BID TAMMIE Administration Folic Acid 1 mg 07/05/19 10:00 07/19/19 12:01 Folvite PO 1 mg QDAY TAMMIE Administration Hydrophilic Ointment 1 applic 07/03/19 19:56 07/05/19 17:42 Vaseline Lip Therapy TP 1 applic Q2HR PRN Administration Dry Lips Norepinephrine 4 mg in 250 mls @ 7.5 mls/hr 07/03/19 23:00 07/19/19 04:00 Levophed Drip 4 Mg/Ns 250 Ml IV 2 mcg/min TITR TAMMIE 7.5 mls/hr Titration Protocol 2 MCG/MIN Insulin Human Lispro 0 unit 07/07/19 12:00 07/19/19 05:45 Humalog SUB-Q Not Given Q6HR [facility] Protocol Levetiracetam 750 mg 07/06/19 11:00 07/19/19 12:02 Keppra FEEDTUBE 750 mg Q12HR TAMMIE Administration Metoprolol Tartrate 5 mg 07/12/19 15:08 07/12/19 15:30 Metoprolol IV 5 mg Q6HR PRN Administration Tachyarrhythmias Multi-Ingred Cream/Lotion/Oil/Oint 1 applic 07/03/19 19:56 07/05/19 13:19 Artificial Tears Ophth Oint OU 1 applic Q4HR PRN Administration Dry Eye(s) Naloxone HCl 0.1 mg 07/04/19 04:24 Naloxone IV Q2MIN PRN Res Rate </= 8 or 02 SAT < 92% Oxycodone/Acetaminophen 1 tab 07/19/19 14:17 Percocet 5/325 PO Q4H PRN Pain, Moderate (4-6) Scopolamine 1 each 07/10/19 11:00 07/19/19 12:04 Transderm-Scop TD 1 each Q3D TAMMIE Administration Simple Syrup 15 ml 07/04/19 10:04 07/10/19 21:56 Simple Syrup FEEDTUBE 15 ml PRN PRN Administration Hypoglycemia Simple Syrup 30 ml 07/04/19 10:04 Simple Syrup FEEDTUBE PRN PRN Hypoglycemia Sodium Bicarbonate 325 mg 07/04/19 10:04 07/17/19 21:42 Sodium Bicarbonate FEEDTUBE 325 mg PRN PRN Administration For Clogged Feeding Tube Sodium Chloride 10 ml 07/04/19 10:00 07/19/19 12:09 Sodium Chloride Flush Syringe 10 Ml IV 10 ml BID TAMMIE Administration Sodium Chloride 10 ml 07/04/19 04:24 Sodium Chloride Flush Syringe 10 Ml IV PRN PRN LINE FLUSH Sodium Hypochlorite 1 applic 07/10/19 14:00 07/19/19 12:10 Dakin's Half Strength TP 0.5 applicatio BID TAMMIE Administration Nutrition/Malnutrition Assess - Dietary Evaluation Nutrition/Malnutrition Findings: Nutrition Notes Start: 07/04/19 09:17 Freq: Status: Active Protocol: Document 07/18/19 13:34 LM (Rec: 07/18/19 13:41 LM [id number]) Nutrition Notes Initial or Follow up Reassessment Current Diagnosis Acute Kidney Injury,COPD, Decubitus(Pressure Ulcer), Diabetes,Hypertension Other Pertinent Diagnosis COVID-19 (+), pneu, seizures, schizophrenia, Buttock and R foot PU, Current Diet Nepro 1.8 at 45ml/hr Labs/Tests Reviewed Pertinent Medications Levophed Height 5 ft 11 in Weight 84 kg [place] Body Weight (kg) 78.18 BMI 25.8 Weight Status Overweight Subjective/Other Information PEG tube was leaking per RN notes yesterday. RN stated he is now tolerating TF at goal. Percent of energy/protein needs met: 100%/80% Burn Absent Trauma Absent Current % PO Negligible Minimum of two criteria No physical signs of malnutrition #2 Nutrition Diagnosis Increased nutrient needs ( specify in comment below) Diagnosis Progress(for reassessment Continues documentation) #1 Nutrition Diagnosis Inadequate oral intake Diagnosis Progress(for reassessment Continues documentation) Is patient on ventilator? Yes Is Patient Ambulatory and/or Out of Bed No REE-([place]-confined to bed) [phone] Additional Notes Protein: 109-182g (1.2-2g/kg) Fluid: 1 ml/kcal or per MD Nutrition Intervention Change Diet Order: TF Nutrition Support: Nepro 1.8 at 45ml/hr Flush 200ml q4h Kcal 1,944 Protein (gm) 87 Fluid (mL) 785 Goal #1 TF tolerance Goal #2 Meet at least 75% of energy and protein needs Anticipated Discharge Needs: unable to determine at this time Follow-Up By: 07/23/19 Additional Comments F/U for TF tolerance
[2019-07-20] MEDS: INSULIN LISPRO 100 UNIT/ML SUB-Q SCH ×4 (01:39→22:03)
[2019-07-20] MEDS: LIPASE 10,500/PROTEASE 25,000/AMYLASE 43,750 (UNITS) DR CAP FEEDTUBE PRN (06:15)
[2019-07-20] MEDS: SODIUM BICARBONATE 325 MG TAB FEEDTUBE PRN ×2 (06:52→10:20)
[2019-07-20 06:58] LABS: BUN/Creatinine Ratio 73; Blood Urea Nitrogen 44 mg/dL (9-20); Calcium 9.5 mg/dL (8.4-10.2); Hemolysis Index 18
--- NOTE | 2019-07-20 09:14 | Progress Note ---
Assessment and Plan 1. Hypoantremia: Suspect SIADH. Sodium level has improved, now 144. Monitor Sodium level. 2. FEN: Metabolic acidosis, monitor. Hyperkalemia, improved, monitor. Monitor volume status and lytes. 3. Acute kidney injury: Vasomotor MIRANDA likely 2/2 persistent hypotension. Initial bump in creatinine was 07/14. Creatinine is better, now 0.6. Monitor renal function. Avoid nephrotoxic agents. Meds dosage based on GFR. 4. Acute hypoxic respiratory failure: Currently intubated and on vent. Considering trach depending on family wishes. Pulmonary following. 5. Severe Sepsis, POA. Tachycardia is improving with metoprolol but still present. Still on levophed but titrated down which pt is tolerating. Followed by ID. 6. Severe COVID-19 pneumonia. 7. Shock: Still on pressors, titrating down. Receiving IV fluid bolus as needed for hypotension. Monitor BP closely. 8. Microcytic anemia, POA: Has received total of 4 units PRBC. Hgb improved 07/15 s/p PRBC. Monitor hgb. 9. Possible occlusion of PEG tube: Occlusion noted by staff. Imaging 07/16 confirmed PEG is in place. PEG occluded again overnight. Staff using bicarb for declogging PRN. 10. Diabetes mellitus. 11. COPD. 12. Encephalopathy, POA: Metabolic. Subjective Date of service: 07/20/19 Principal diagnosis: Bilateral pneumonia, severe sepsis with septic shock, encephalopathy Interval history: Patient was only seen from outside the glass door to prevent exposure to COVID-19. PPE is also limited supply. Reviewed all notes, vitals, and labs to date. Discussed plan of care with primary RN. PEG occluded again overnight. Objective - Exam Narrative Exam: General appearance: intubated on ventilator, carroll HEENT: not examined Neck: not examined Respiratory: not examined Heart: sinus tach on the monitor Gastrointestinal: not examined Integumentary: not examined Neurologic: not examined Ext: not examined - Vital Signs Vital signs: Vital Signs - 12hr 07/19/19 07/19/19 07/19/19 21:16 21:30 21:45 Temperature Pulse Rate 111 H 110 H 108 H Pulse Rate [ From Monitor] Respiratory 21 20 20 Rate Blood Pressure 131/76 119/73 115/71 O2 Sat by Pulse 100 100 100 Oximetry 04/07/19/19 07/19/19 22:00 22:12 22:15 Temperature Pulse Rate 110 H 109 H 109 H Pulse Rate [ From Monitor] Respiratory 20 20 20 Rate Blood Pressure 105/64 105/64 109/68 O2 Sat by Pulse 100 100 100 Oximetry 07/19/19 07/19/19 07/19/19 22:30 22:46 23:00 Temperature Pulse Rate 108 H 109 H 110 H Pulse Rate [ From Monitor] Respiratory 20 20 20 Rate Blood Pressure 118/68 114/63 106/61 O2 Sat by Pulse 100 100 100 Oximetry 07/19/19 07/19/19 07/19/19 23:15 23:30 23:45 Temperature Pulse Rate 113 H 110 H 110 H Pulse Rate [ From Monitor] Respiratory 22 20 19 Rate Blood Pressure 108/69 112/73 116/67 O2 Sat by Pulse 96 100 100 Oximetry 07/20/19 07/20/19 07/20/19 00:00 00:07 00:16 Temperature 98 F Pulse Rate 112 H 116 H 112 H Pulse Rate [ 105 H From Monitor] Respiratory 20 21 Rate Blood Pressure 110/63 110/63 109/63 O2 Sat by Pulse 100 98 100 Oximetry 07/20/19 07/20/19 07/20/19 00:30 00:45 01:00 Temperature Pulse Rate 109 H 110 H 117 H Pulse Rate [ From Monitor] Respiratory 19 20 19 Rate Blood Pressure 113/63 109/61 109/61 O2 Sat by Pulse 100 100 100 Oximetry 07/20/19 07/20/19 07/20/19 01:16 01:30 01:45 Temperature Pulse Rate 116 H 114 H 112 H Pulse Rate [ From Monitor] Respiratory 20 22 23 Rate Blood Pressure 122/68 120/72 123/72 O2 Sat by Pulse 100 98 100 Oximetry 07/20/19 07/20/19 07/20/19 02:00 02:15 02:30 Temperature Pulse Rate 111 H 112 H 111 H Pulse Rate [ From Monitor] Respiratory 22 19 20 Rate Blood Pressure 125/76 128/70 122/65 O2 Sat by Pulse 100 100 100 Oximetry 07/20/19 07/20/19 07/20/19 02:45 03:00 03:16 Temperature Pulse Rate 113 H 110 H 108 H Pulse Rate [ From Monitor] Respiratory 20 20 21 Rate Blood Pressure 126/64 129/69 128/71 O2 Sat by Pulse 100 100 100 Oximetry 07/20/19 07/20/19 07/20/19 03:30 03:45 04:00 Temperature 97.6 F Pulse Rate 109 H 111 H 112 H Pulse Rate [ 110 H From Monitor] Respiratory 20 20 20 Rate Blood Pressure 128/71 120/65 117/63 O2 Sat by Pulse 100 100 100 Oximetry 07/20/19 07/20/19 07/20/19 04:01 04:16 04:30 Temperature Pulse Rate 116 H 114 H 115 H Pulse Rate [ From Monitor] Respiratory 20 18 Rate Blood Pressure 117/63 112/63 122/63 O2 Sat by Pulse 100 100 100 Oximetry 07/20/19 07/20/19 07/20/19 04:45 05:00 05:16 Temperature Pulse Rate 115 H 114 H 113 H Pulse Rate [ From Monitor] Respiratory 21 23 25 H Rate Blood Pressure 129/69 122/61 125/71 O2 Sat by Pulse 99 90 100 Oximetry 07/20/19 07/20/19 07/20/19 05:30 05:46 06:00 Temperature Pulse Rate 111 H 113 H 113 H Pulse Rate [ From Monitor] Respiratory 17 17 20 Rate Blood Pressure 125/71 129/88 129/54 O2 Sat by Pulse 100 100 100 Oximetry 07/20/19 07/20/19 07/20/19 06:15 06:30 06:46 Temperature Pulse Rate 110 H 108 H 109 H Pulse Rate [ From Monitor] Respiratory 20 20 21 Rate Blood Pressure 117/66 127/66 128/68 O2 Sat by Pulse 100 100 100 Oximetry 07/20/19 07/20/19 07/20/19 07:00 07:15 07:30 Temperature Pulse Rate 106 H 107 H 107 H Pulse Rate [ From Monitor] Respiratory 20 21 21 Rate Blood Pressure 117/66 125/65 132/63 O2 Sat by Pulse 100 100 100 Oximetry 07/20/19 07/20/19 07:46 08:49 Temperature Pulse Rate 107 H 107 H Pulse Rate [ From Monitor] Respiratory 20 Rate Blood Pressure 136/72 127/71 O2 Sat by Pulse 100 100 Oximetry - Lab 07/19/19 08:45 07/20/19 04:39 Most recent lab results ABG pH 7.342 pH Units (7.350-7.450) L 07/19/19 03:45 ABG pCO2 45.2 mm Hg 07/19/19 03:45 ABG pO2 95.0 mm Hg (80.0-90.0) H 07/19/19 03:45 ABG HCO3 24.0 mmol/L (20.0-26.0) 07/19/19 03:45 ABG O2 Saturation 97.1 % (95.0-99.0) 07/19/19 03:45 Calcium 9.5 mg/dL (8.4-10.2) 07/20/19 04:39 Phosphorus 3.60 mg/dL (2.5-4.5) 07/05/19 04:00 Magnesium 1.80 mg/dL (1.7-2.3) 07/11/19 05:14 Medications & Allergies - Medications Allergies/Adverse Reactions: Allergies No Known Allergies Allergy (Unverified 09/09/16 16:29) Home Medications: Home Medications Medication Instructions Recorded Confirmed Last Taken Type Acetaminophen [Tylenol] 500 mg PO TID 07/04/19 07/04/19 Unknown History Albuterol Sulfate [Proair 90 mcg IH TID 07/04/19 07/04/19 Unknown History Digihaler] Amlodipine Besylate [Norvasc] 2.5 mg PO QDAY 07/04/19 07/04/19 Unknown History Aspirin [Aspirin BABY CHEW TAB] 81 mg PO QDAY 07/04/19 07/04/19 Unknown History Atorvastatin Calcium [Lipitor] 80 mg PO QDAY 07/04/19 07/04/19 Unknown History Benztropine Mesylate 0.5 mg PO QDAY 07/04/19 07/04/19 Unknown History Budesonide/Formoterol Fumarate 10.2 gm IH BID 07/04/19 07/04/19 Unknown History [Budesonide-Formoterol 160-4.5] Divalproex ER [DepaKOTE ER] 1,000 mg PO QDAY 07/04/19 07/04/19 Unknown History Docusate Sodium [Colace] 100 mg PO QDAY 07/04/19 07/04/19 Unknown History Folic Acid [Folvite] 1 mg PO QDAY 07/04/19 07/04/19 Unknown History Hydrophilic Ointment [Dermafix] 113 gm TP QDAY 07/04/19 07/04/19 Unknown History Losartan [Cozaar] 100 mg PO QDAY 07/04/19 07/04/19 Unknown History Metformin HCl [Metformin HCl ER] 500 mg PO QDAY 07/04/19 07/04/19 Unknown History Metoprolol Tartrate 25 mg PO BID 07/04/19 07/04/19 Unknown History Multivit with Minerals/Ginseng 1 each PO QDAY 07/04/19 07/04/19 Unknown History [Super Ginseng Multivit Cap] Quetiapine Fumarate [SEROquel Xr] 400 mg PO QHS 07/04/19 07/04/19 Unknown History Sertraline HCl [Zoloft] 100 mg PO QDAY 07/04/19 07/04/19 Unknown History Sildenafil Citrate [Viagra] 100 mg PO QDAY PRN 07/04/19 07/04/19 Unknown History Tamsulosin [Flomax] 0.4 mg PO QDAY 07/04/19 07/04/19 Unknown History Active Medications: Generic Name Dose Route Start Last Admin Trade Name Freq PRN Reason Stop Dose Admin Acetaminophen 650 mg 07/04/19 04:24 Tylenol ME Q6H PRN Pain MILD(1-3)/Fever >100.5/MURO Acetaminophen 650 mg 07/10/19 04:00 07/15/19 20:35 Tylenol PO 650 mg Q6HR PRN Administration Pain, Mild (1-3) FEVER Lipase/Protease/Amylase 1 each 07/04/19 10:04 07/20/19 06:15 Pancrewhitley Gilbert 10,500 Unit FEEDTUBE 1 each PRN PRN Administration For Clogged Feeding Tube Aspirin 81 mg 07/05/19 10:00 07/19/19 12:01 Baby Aspirin PO 81 mg QDAY TAMMIE Administration Dextrose 50 ml 07/04/19 06:54 D50w (25gm) Syringe IV Q30MIN PRN Hypoglycemia Protocol Docusate Sodium 100 mg 07/10/19 10:00 07/19/19 21:09 Colace PO 100 mg BID TAMMIE Administration Famotidine 20 mg 07/17/19 10:00 07/19/19 21:10 Pepcid PO 20 mg BID TAMMIE Administration Folic Acid 1 mg 07/05/19 10:00 07/19/19 12:01 Folvite PO 1 mg QDAY TAMMIE Administration Hydrophilic Ointment 1 applic 07/03/19 19:56 07/05/19 17:42 Vaseline Lip Therapy TP 1 applic Q2HR PRN Administration Dry Lips Norepinephrine 4 mg in 250 mls @ 7.5 mls/hr 07/03/19 23:00 07/20/19 01:00 Levophed Drip 4 Mg/Ns 250 Ml IV Infused TITR TAMMIE Titration Protocol 2 MCG/MIN Insulin Human Lispro 0 unit 07/07/19 12:00 07/20/19 01:39 Humalog SUB-Q Not Given Q6HR [facility] Protocol Levetiracetam 750 mg 07/06/19 11:00 07/19/19 21:09 Keppra FEEDTUBE 750 mg Q12HR TAMMIE Administration Metoprolol Tartrate 5 mg 07/12/19 15:08 07/12/19 15:30 Metoprolol IV 5 mg Q6HR PRN Administration Tachyarrhythmias Multi-Ingred Cream/Lotion/Oil/Oint 1 applic 07/03/19 19:56 07/05/19 13:19 Artificial Tears Ophth Oint OU 1 applic Q4HR PRN Administration Dry Eye(s) Naloxone HCl 0.1 mg 07/04/19 04:24 Naloxone IV Q2MIN PRN Res Rate </= 8 or 02 SAT < 92% Oxycodone/Acetaminophen 1 tab 07/19/19 14:17 Percocet 5/325 PO Q4H PRN Pain, Moderate (4-6) Scopolamine 1 each 07/10/19 11:00 07/19/19 12:04 Transderm-Scop TD 1 each Q3D TAMMIE Administration Simple Syrup 15 ml 07/04/19 10:04 07/10/19 21:56 Simple Syrup FEEDTUBE 15 ml PRN PRN Administration Hypoglycemia Simple Syrup 30 ml 07/04/19 10:04 Simple Syrup FEEDTUBE PRN PRN Hypoglycemia Sodium Bicarbonate 325 mg 07/04/19 10:04 07/20/19 06:52 Sodium Bicarbonate FEEDTUBE 325 mg PRN PRN Administration For Clogged Feeding Tube Sodium Chloride 10 ml 07/04/19 10:00 07/19/19 21:10 Sodium Chloride Flush Syringe 10 Ml IV 10 ml BID TAMMIE Administration Sodium Chloride 10 ml 07/04/19 04:24 Sodium Chloride Flush Syringe 10 Ml IV PRN PRN LINE FLUSH Sodium Hypochlorite 1 applic 07/10/19 14:00 07/19/19 21:09 Sp's Half Strength TP 1 applicatio BID TAMMIE Administration
[2019-07-20] MEDS: FAMOTIDINE 20 MG TAB PO SCH ×2 (10:20→21:57)
[2019-07-20] MEDS: levETIRAcetam 500 MG/5 ML ORAL LIQD FEEDTUBE SCH ×2 (10:20→21:56)
[2019-07-20] MEDS: DOCUSATE SODIUM 100 MG/10 ML ORAL LIQD PO SCH ×2 (10:20→21:56)
[2019-07-20] MEDS: FOLIC ACID 1 MG TAB PO SCH (10:20)
[2019-07-20] MEDS: ASPIRIN 81 MG TAB CHEW PO SCH (10:20)
--- NOTE | 2019-07-20 13:29 | Progress Note ---
Assessment and Plan Assessment and plan: --COVid positive pneumonia with severe sepsis Received Plaquenil and cefepime, monitor off antibiotics ID following --Septic shock: On Levophed Persistent hypotension, titrate to systolic blood pressure more than 100 -- Acute respiratory Failure with Hypoxia Due to bilateral PNA with COVID 19 infection. On ventilatory support, unable to wean Pulmonary critical following --COPD with exacerbation Likely due to COVID-19 pneumonia Continue scheduled nebs --Anemia, Microcytic persistent s/p total 3 unit of PRBC, today Hb today 9.1 --Pressure Ulcers: POA buttocks, right lateral foot area wound and supportive care --Hyponatremia, resolved --DM type 2: Accu-Chek SCC tube feeding, insulin as needed --h/o HTN Essential, now hypotensive On Levophed --Seizure D/o/CVA/immobility/BIpolar D/o/SCZ Seizure precautions, antiepileptic medications --Severe PCM, TF supportive care, dietary following patient is DNR- Called and verified information Very poor prognosis, Recommend hospice 07/04: COVID +ve, start on plaquinil, called no answer 07/05: transfuse one unit PRBC, Hb dropped to ~6, called and updated 07/06; H&H stable, serum chemistry improved. On mechanical ventilation with high inflammatory markers. Continue Plaquenil and empiric antibiotics. ID following, prognosis remains guarded and extremely poor. 07/07: On mechanical ventilation with high inflammatory markers. Continue Plaquenil and empiric antibiotics. ID following, prognosis remains guarded and extremely poor. 07/08: Called today and verified the CODE STATUS. Patient remains DNR. He is still intubated, with poor prognosis. Continue to follow inflammatory markers. 07/09 wean off from vent as tolerated, completed empiric antibiotic and Plaquenil 07/10 wean off from vent as tolerated. poor prognosis 07/11 hb 6.7 today, transfuse one PRBC. wean off from vent as tolerated. poor prognosis 07/12 remains critically on vent. Hb 6.9 07/13 Hb dropped to 6.6, transfuse 1 unit of PRBC, remains on vent critically ill Hypotensive, fluid bolus, if no improvement start Levophed 07/14; remains anemic with hemoglobin of 6.8, received total 3 units of PRBC Additional 1 unit of PRBC today, stool for occult blood to rule out GI causes Started back on Levophed due to hypotension 07/15; patient remains critically ill, hypotensive on Levophed 07/16: Today remains intubated on vent, persistent hypotension on Levophed 07/17; clinically no change, pressor dependent[on Levophed] DNR status 07/18: Patient remains hypotensive requiring Levophed, intubated on vent Unable to wean, critically ill. DNR 07/20/2019 Patient remains hypotensive requiring Levophed, intubated on vent. Patient currently with AC mode ventilation, rate 20, tidal volume 500, FiO2 40% and PEEP 6. Patient is a poor prognosis and apparently was on hospice recently. 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 The aggregate critical care time was [34] minutes. This time is in addition to time spent performing reported procedures but includes the followi ng: [x] Data Review and interpretation [x] Patient assessment and monitoring of vital signs [x] Documentation [x] Medication orders and management History Interval history: 69-year-old male patient with PMH of CVA with RHP, HTN, DM2, SCZ, Dementia, A lcohol use D/o, Seizure D/O, presents to the emergency department via EMS from home with progressive SOB and impending espiratory failure with an unresponsive . PT was intubated was admitted through emergency room to ICU treated for sepsis, b/l PNA, acute respiratory failure received antibiotics. Patient was tested positive for COVID19. Evaluated by ID , received antibiotics Plaquenil, and inflammatory markers were checked and followed. Patient was hypotensive requiring Levophed, continues to be hypotensive currently on Levophed, unable to wean remains intubated on ventilatory support, critically ill, DNR status however family wants full treatment. Hospitalist Physical - Constitutional Vitals: Temp Pulse Resp BP Pulse Ox 98.1 F 107 H 20 122/72 100 07/20/19 12:00 07/20/19 12:34 07/20/19 12:00 07/20/19 12:34 07/20/19 12:34 General appearance: Present: no acute distress, well-nourished, other (Orally intubated on vent) - EENT Eyes: Present: PERRL, EOM intact ENT: hearing intact, clear oral mucosa, dentition normal - Neck Neck: Present: supple, normal ROM - Respiratory Respiratory effort: normal Respiratory: bilateral: CTA - Cardiovascular Rhythm: regular Heart Sounds: Present: S1 & S2. Absent: gallop, rub - Extremities Extremities: no ischemia, No edema, Full ROM - Abdominal General gastrointestinal: soft, non-tender, non-distended, normal bowel sounds - Integumentary Integumentary: Present: clear, warm, dry - Neurologic Neurologic: CNII-XII intact, moves all extremities Results - Labs CBC & Chem 7: 07/19/19 08:45 07/20/19 04:39 Labs: Laboratory Last Values WBC 15.9 K/mm3 (4.5-11.0) H 07/19/19 08:45 RBC 3.31 M/mm3 (3.65-5.03) L 07/19/19 08:45 Hgb 9.1 gm/dl (11.8-15.2) L 07/19/19 08:45 Hct 28.4 % (35.5-45.6) L 07/19/19 08:45 MCV 86 fl (84-94) 07/19/19 08:45 MCH 27 pg (28-32) L 07/19/19 08:45 MCHC 32 % (32-34) 07/19/19 08:45 RDW 19.1 % (13.2-15.2) H 07/19/19 08:45 Plt Count 858 K/mm3 (140-440) H 07/19/19 08:45 Lymph % (Auto) 4.9 % (13.4-35.0) L 07/19/19 08:45 Mccone % (Auto) 8.1 % (0.0-7.3) H 07/19/19 08:45 Eos % (Auto) 1.0 % (0.0-4.3) 07/19/19 08:45 Baso % (Auto) 0.5 % (0.0-1.8) 07/19/19 08:45 Lymph # 0.8 K/mm3 (1.2-5.4) L 07/19/19 08:45 Mccone # 1.3 K/mm3 (0.0-0.8) H 07/19/19 08:45 Eos # 0.2 K/mm3 (0.0-0.4) 07/19/19 08:45 Baso # 0.1 K/mm3 (0.0-0.1) 07/19/19 08:45 Add Manual Diff Complete 07/15/19 05:18 Total Counted 100 07/15/19 05:18 Seg Neutrophils % 85.5 % (40.0-70.0) H 07/19/19 08:45 Seg Neuts % (Manual) 92.0 % (40.0-70.0) H 07/15/19 05:18 Band Neutrophils % 0 % 07/15/19 05:18 Lymphocytes % (Manual) 5.0 % (13.4-35.0) L 07/15/19 05:18 Reactive Lymphs % (Man) 0 % 07/15/19 05:18 Monocytes % (Manual) 3.0 % (0.0-7.3) 07/15/19 05:18 Eosinophils % (Manual) 0 % (0.0-4.3) 07/15/19 05:18 Basophils % (Manual) 0 % (0.0-1.8) 07/15/19 05:18 Metamyelocytes % 0 % 07/15/19 05:18 Myelocytes % 0 % 07/15/19 05:18 Promyelocytes % 0 % 07/15/19 05:18 Blast Cells % 0 % 07/15/19 05:18 Nucleated RBC % Not Reportable 07/15/19 05:18 Seg Neutrophils # 13.6 K/mm3 (1.8-7.7) H 07/19/19 08:45 Seg Neutrophils # Man 19.0 K/mm3 (1.8-7.7) H 07/15/19 05:18 Band Neutrophils # 0.0 K/mm3 07/15/19 05:18 Lymphocytes # (Manual) 1.0 K/mm3 (1.2-5.4) L 07/15/19 05:18 Abs React Lymphs (Man) 0.0 K/mm3 07/15/19 05:18 Monocytes # (Manual) 0.6 K/mm3 (0.0-0.8) 07/15/19 05:18 Eosinophils # (Manual) 0.0 K/mm3 (0.0-0.4) 07/15/19 05:18 Basophils # (Manual) 0.0 K/mm3 (0.0-0.1) 07/15/19 05:18 Metamyelocytes # 0.0 K/mm3 07/15/19 05:18 Myelocytes # 0.0 K/mm3 07/15/19 05:18 Promyelocytes # 0.0 K/mm3 07/15/19 05:18 Blast Cells # 0.0 K/mm3 07/15/19 05:18 WBC Morphology Not Reportable 07/15/19 05:18 Hypersegmented Neuts Not Reportable 07/15/19 05:18 Hyposegmented Neuts Not Reportable 07/15/19 05:18 Hypogranular Neuts Not Reportable 07/15/19 05:18 Smudge Cells Not Reportable 07/15/19 05:18 Toxic Granulation Not Reportable 07/15/19 05:18 Toxic Vacuolation Not Reportable 07/15/19 05:18 Dohle Bodies Not Reportable 07/15/19 05:18 Pelger-Huet Anomaly Not Reportable 07/15/19 05:18 Mendy Rods Not Reportable 07/15/19 05:18 Platelet Estimate Consistent w auto 07/15/19 05:18 Clumped Platelets Not Reportable 07/15/19 05:18 Plt Clumps, EDTA Not Reportable 07/15/19 05:18 Large Platelets Not Reportable 07/15/19 05:18 Giant Platelets Not Reportable 07/15/19 05:18 Platelet Satelliting Not Reportable 07/15/19 05:18 Plt Morphology Comment Not Reportable 07/15/19 05:18 RBC Morphology Not Reportable 07/15/19 05:18 Dimorphic RBCs Not Reportable 07/15/19 05:18 Polychromasia Not Reportable 07/15/19 05:18 Hypochromasia 2+ 07/15/19 05:18 Poikilocytosis Not Reportable 07/15/19 05:18 Anisocytosis 1+ 07/15/19 05:18 Microcytosis Few 07/15/19 05:18 Macrocytosis Not Reportable 07/15/19 05:18 Spherocytes Few 07/15/19 05:18 Pappenheimer Bodies Not Reportable 07/15/19 05:18 Sickle Cells Not Reportable 07/15/19 05:18 Target Cells Not Reportable 07/15/19 05:18 Tear Drop Cells Not Reportable 07/15/19 05:18 Ovalocytes Rare 07/15/19 05:18 Helmet Cells Not Reportable 07/15/19 05:18 Altman-Goodyear Bodies Not Reportable 07/15/19 05:18 Bethany Rings Not Reportable 07/15/19 05:18 Elgin Cells Not Reportable 07/15/19 05:18 Bite Cells Not Reportable 07/15/19 05:18 Crenated Cell Not Reportable 07/15/19 05:18 Elliptocytes Not Reportable 07/15/19 05:18 Acanthocytes (Spur) Not Reportable 07/15/19 05:18 Rouleaux Not Reportable 07/15/19 05:18 Hemoglobin C Crystals Not Reportable 07/15/19 05:18 Schistocytes Few 07/15/19 05:18 Malaria parasites Not Reportable 07/15/19 05:18 Jeevan Bodies Not Reportable 07/15/19 05:18 Hem Pathologist Commnt No 07/15/19 05:18 PT 16.0 Sec. (12.2-14.9) H 07/03/19 22:20 INR 1.26 (0.87-1.13) H 07/03/19 22:20 D-Dimer 1142.18 ng/mlDDU (0-234) H 07/08/19 00:45 ABG pH 7.342 pH Units (7.350-7.450) L 07/19/19 03:45 ABG pCO2 45.2 mm Hg 07/19/19 03:45 ABG pO2 95.0 mm Hg (80.0-90.0) H 07/19/19 03:45 ABG HCO3 24.0 mmol/L (20.0-26.0) 07/19/19 03:45 ABG O2 Saturation 97.1 % (95.0-99.0) 07/19/19 03:45 ABG O2 Content 11.6 (0.0-44) 07/19/19 03:45 ABG Base Excess -1.8 mmol/L (-2.0-3.0) 07/19/19 03:45 ABG Hemoglobin 8.5 gm/dl (14.0-18.0) L 07/19/19 03:45 ABG Carboxyhemoglobin 1.2 % (0.0-5.0) 07/19/19 03:45 ABG Methemoglobin 0.4 % (0.0-1.5) 07/19/19 03:45 Oxyhemoglobin 95.5 % (95.0-99.0) 07/19/19 03:45 FiO2 50 % 07/19/19 03:45 Sodium 144 mmol/L (137-145) 07/20/19 04:39 Potassium 3.6 mmol/L (3.6-5.0) 07/20/19 04:39 Chloride 110.3 mmol/L (98-107) H 07/20/19 04:39 Carbon Dioxide 25 mmol/L (22-30) 07/20/19 04:39 Anion Gap 12 mmol/L 07/20/19 04:39 BUN 44 mg/dL (9-20) H 07/20/19 04:39 Creatinine 0.6 mg/dL (0.8-1.5) L 07/20/19 04:39 Estimated GFR > 60 ml/min 07/20/19 04:39 BUN/Creatinine Ratio 73 % 07/20/19 04:39 Glucose 120 mg/dL (75-100) H 07/20/19 04:39 POC Glucose 81 (70-105) 07/20/19 12:15 Osmolality 268 Mosm/kg 07/05/19 04:00 Lactic Acid 3.30 mmol/L (0.7-2.0) H* 07/04/19 07:05 Uric Acid 7.2 mg/dL (3.5-7.6) 07/05/19 04:00 Calcium 9.5 mg/dL (8.4-10.2) 07/20/19 04:39 Phosphorus 3.60 mg/dL (2.5-4.5) 07/05/19 04:00 Magnesium 1.80 mg/dL (1.7-2.3) 07/11/19 05:14 Iron 9 ug/dL (49-181) L 07/04/19 07:05 TIBC 97 mcg/dL (250-450) L 07/04/19 07:05 Ferritin 839.0 ng/mL (13.0-400.0) H 07/08/19 00:45 Total Bilirubin 0.20 mg/dL (0.1-1.2) 07/04/19 07:05 AST 73 units/L (5-40) H 07/04/19 07:05 ALT 91 units/L (7-56) H 07/04/19 07:05 Alkaline Phosphatase 114 units/L (35-129) 07/04/19 07:05 Ammonia 35.0 umol/L (25-60) 07/03/19 23:58 Lactate Dehydrogenase 277 units/L (91-180) H 07/10/19 04:00 Troponin T 0.013 ng/mL (0.00-0.029) 07/04/19 07:05 C-Reactive Protein 15.10 mg/dL (0.00-1.30) H 07/10/19 04:00 Total Protein 5.5 g/dL (6.3-8.2) L 07/04/19 07:05 Albumin 2.0 g/dL (3.9-5) L 07/04/19 07:05 Albumin/Globulin Ratio 0.6 % 07/04/19 07:05 Triglycerides 33 mg/dL (2-149) 07/03/19 19:57 Cholesterol 47 mg/dL (50-199) L 07/03/19 19:57 LDL Cholesterol Direct 25 mg/dL (50-130) L 07/03/19 19:57 HDL Cholesterol 20 mg/dL (40-59) L 07/03/19 19:57 Cholesterol/HDL Ratio 2.35 % 07/03/19 19:57 Procalcitonin 1.25 ng/mL (<0.15) 07/10/19 04:00 TSH 2.170 mlU/mL (0.270-4.200) 07/03/19 22:20 Total Cortisol 28.0 mcg/dL () 07/05/19 10:11 Urine Color Naima (Yellow) 07/03/19 21:13 Urine Turbidity Cloudy (Clear) 07/03/19 21:13 Urine pH 5.0 (5.0-7.0) 07/03/19 21:13 Ur Specific [place] 1.016 (1.003-1.030) 07/03/19 21:13 Urine Protein 30 mg/dl mg/dL (Negative) 07/03/19 21:13 Urine Glucose (UA) Neg mg/dL (Negative) 07/03/19 21:13 Urine Ketones Neg mg/dL (Negative) 07/03/19 21:13 Urine Blood Neg (Negative) 07/03/19 21:13 Urine Nitrite Neg (Negative) 07/03/19 21:13 Urine Bilirubin Neg (Negative) 07/03/19 21:13 Urine Urobilinogen 2.0 mg/dL (<2.0) 07/03/19 21:13 Ur Leukocyte Esterase Neg (Negative) 07/03/19 21:13 Urine WBC (Auto) 12.0 /HPF (0.0-6.0) H 07/03/19 21:13 Urine RBC (Auto) 6.0 /HPF (0.0-6.0) 07/03/19 21:13 U Epithel Cells (Auto) 1.0 /HPF (0-13.0) 07/03/19 21:13 Urine Bacteria (Auto) 1+ /HPF (Negative) 07/03/19 21:13 Urine WBC Clumps Few /HPF 07/03/19 21:13 Urine Mucus Few /HPF 07/03/19 21:13 Urine Osmolality 293 Mosm/kg 07/05/19 08:15 Vancomycin Trough 23.2 ug/mL (5.0-20.0) H 07/05/19 17:54 Urine Opiates Screen Presumptive negative 07/03/19 21:13 Urine Methadone Screen Presumptive negative 07/03/19 21:13 Ur Barbiturates Screen Presumptive negative 07/03/19 21:13 Ur Phencyclidine Scrn Presumptive negative 07/03/19 21:13 Ur Amphetamines Screen Presumptive negative 07/03/19 21:13 U Benzodiazepines Scrn Presumptive negative 07/03/19 21:13 Urine Cocaine Screen Presumptive negative 07/03/19 21:13 U Marijuana (THC) Screen Presumptive negative 07/03/19 21:13 Drugs of Abuse Note Disclamer 07/03/19 21:13 Plasma/Serum Alcohol < 0.01 % (0-0.07) 07/03/19 23:58 Coronavirus (PCR) Positive (Negative) A 07/04/19 10:09 Blood Type B POSITIVE 07/12/19 08:49 Antibody Screen Negative 07/12/19 08:49 Crossmatch See Detail 07/12/19 08:49 Wright/IV: Voiding Method Indwelling Catheter IV Catheter Type [Left Upper Mid-line arm] IV Catheter Type [Right INT / Saline Lock Forearm] IV Catheter Type [Right Hand] INT / Saline Lock IV Catheter Type [Right CVL Femoral] IV Catheter Type [Left INT / Saline Lock External Jugular] Active Medications - Current Medications Current Medications: Generic Name Dose Route Start Last Admin Trade Name Freq PRN Reason Stop Dose Admin Acetaminophen 650 mg 07/04/19 04:24 Tylenol IL Q6H PRN Pain MILD(1-3)/Fever >100.5/MURO Acetaminophen 650 mg 07/10/19 04:00 07/15/19 20:35 Tylenol PO 650 mg Q6HR PRN Administration Pain, Mild (1-3) FEVER Lipase/Protease/Amylase 1 each 07/04/19 10:04 07/20/19 06:[address] 10,500 Unit FEEDTUBE 1 each PRN PRN Administration For Clogged Feeding Tube Aspirin 81 mg 07/05/19 10:00 07/20/19 10:20 Baby Aspirin PO 81 mg QDAY TAMMIE Administration Dextrose 50 ml 07/04/19 06:54 D50w (25gm) Syringe IV Q30MIN PRN Hypoglycemia Protocol Docusate Sodium 100 mg 07/10/19 10:00 07/20/19 10:20 Colace PO 100 mg BID TAMMIE Administration Famotidine 20 mg 07/17/19 10:00 07/20/19 10:20 Pepcid PO 20 mg BID TAMMIE Administration Folic Acid 1 mg 07/05/19 10:00 07/20/19 10:20 Folvite PO 1 mg QDAY TAMMIE Administration Hydrophilic Ointment 1 applic 07/03/19 19:56 07/05/19 17:42 Vaseline Lip Therapy TP 1 applic Q2HR PRN Administration Dry Lips Norepinephrine 4 mg in 250 mls @ 7.5 mls/hr 07/03/19 23:00 07/20/19 01:00 Levophed Drip 4 Mg/Ns 250 Ml IV Infused TITR TAMMIE Titration Protocol 2 MCG/MIN Insulin Human Lispro 0 unit 07/07/19 12:00 07/20/19 01:39 Humalog SUB-Q Not Given Q6HR TAMMIE Protocol Levetiracetam 750 mg 07/06/19 11:00 07/20/19 10:20 Keppra FEEDTUBE 750 mg Q12HR TAMMIE Administration Metoprolol Tartrate 5 mg 07/12/19 15:08 07/12/19 15:30 Metoprolol IV 5 mg Q6HR PRN Administration Tachyarrhythmias Multi-Ingred Cream/Lotion/Oil/Oint 1 applic 07/03/19 19:56 07/05/19 13:19 Artificial Tears Ophth Oint OU 1 applic Q4HR PRN Administration Dry Eye(s) Naloxone HCl 0.1 mg 07/04/19 04:24 Naloxone IV Q2MIN PRN Res Rate </= 8 or 02 SAT < 92% Oxycodone/Acetaminophen 1 tab 07/19/19 14:17 Percocet 5/325 PO Q4H PRN Pain, Moderate (4-6) Scopolamine 1 each 07/10/19 11:00 07/19/19 12:04 Transderm-Scop TD 1 each Q3D TAMMIE Administration Simple Syrup 15 ml 07/04/19 10:04 07/10/19 21:56 Simple Syrup FEEDTUBE 15 ml PRN PRN Administration Hypoglycemia Simple Syrup 30 ml 07/04/19 10:04 Simple Syrup FEEDTUBE PRN PRN Hypoglycemia Sodium Bicarbonate 325 mg 07/04/19 10:04 07/20/19 10:20 Sodium Bicarbonate FEEDTUBE 325 mg PRN PRN Administration For Clogged Feeding Tube Sodium Chloride 10 ml 07/04/19 10:00 07/19/19 21:10 Sodium Chloride Flush Syringe 10 Ml IV 10 ml BID TAMMIE Administration Sodium Chloride 10 ml 07/04/19 04:24 Sodium Chloride Flush Syringe 10 Ml IV PRN PRN LINE FLUSH Sodium Hypochlorite 1 applic 07/10/19 14:00 07/19/19 21:09 Dakin's Half Strength TP 1 applicatio BID TAMMIE Administration Nutrition/Malnutrition Assess - Dietary Evaluation Nutrition/Malnutrition Findings: Nutrition Notes Start: 07/04/19 09:17 Freq: Status: Active Protocol: Document 07/18/19 13:34 LM (Rec: 07/18/19 13:41 LM [id number]) Nutrition Notes Initial or Follow up Reassessment Current Diagnosis Acute Kidney Injury,COPD, Decubitus(Pressure Ulcer), Diabetes,Hypertension Other Pertinent Diagnosis COVID-19 (+), pneu, seizures, schizophrenia, Buttock and R foot PU, Current Diet Nepro 1.8 at 45ml/hr Labs/Tests Reviewed Pertinent Medications Levophed Height 5 ft 11 in Weight 84 kg [place] Body Weight (kg) 78.18 BMI 25.8 Weight Status Overweight Subjective/Other Information PEG tube was leaking per RN notes yesterday. RN stated he is now tolerating TF at goal. Percent of energy/protein needs met: 100%/80% Burn Absent Trauma Absent Current % PO Negligible Minimum of two criteria No physical signs of malnutrition #2 Nutrition Diagnosis Increased nutrient needs ( specify in comment below) Diagnosis Progress(for reassessment Continues documentation) #1 Nutrition Diagnosis Inadequate oral intake Diagnosis Progress(for reassessment Continues documentation) Is patient on ventilator? Yes Is Patient Ambulatory and/or Out of Bed No REE-([facility]-confined to bed) [phone] Additional Notes Protein: 109-182g (1.2-2g/kg) Fluid: 1 ml/kcal or per MD Nutrition Intervention Change Diet Order: TF Nutrition Support: Nepro 1.8 at 45ml/hr Flush 200ml q4h Kcal 1,944 Protein (gm) 87 Fluid (mL) 785 Goal #1 TF tolerance Goal #2 Meet at least 75% of energy and protein needs Anticipated Discharge Needs: unable to determine at this time Follow-Up By: 07/23/19 Additional Comments F/U for TF tolerance
--- NOTE | 2019-07-20 14:25 | Progress Note ---
Assessment and Plan Cultures: 07/03/2019 urine culture: No growth 07/03/2019 Tracheal aspirate: E.coli A/P: 69-year-old male with CVA, hypertension, dementia, schizophrenia, alcohol use disorder was admitted to the emergency room after being brought in by EMS with progressive shortness of breath and unresponsiveness. He was noted to have agonal breathing and a faint pulse requiring CPR. It seems patient was on hospice recently. #Shock, likely septic: Lactic acidosis. Remains off pressors. #Severe COVID-19 disease and pneumonia: Elevated markers. Completed Plaquenil. Completed Ceftriaxone for treatment E.coli in tracheal aspirate. #Acute respiratory failure: on mechanical ventilation. #Transaminitis: Likely from COVID-19, shock #Leucocytosis: ?reactive from above. Recs: continue supportive care for COVID-19 agree with DNR. Poor prognosis. It seems patient was on hospice recently eMkhi Barboza MD [facility] ([facility]) M: [phone] O: [phone] F: [phone] Subjective Date of service: 07/20/19 Principal diagnosis: Bilateral pneumonia, severe sepsis with septic shock, encephalopathy Interval history: Afebrile with a stable white count of 16. Remains in ICu. Objective - Exam Narrative Exam: Physical Exam (reviewed in chart due to PPE conservation) Constitutional: intubated, sedated, on the vent Head, Ears, Nose: normocephalic, atraumatic Eyes: limited due to PPE conservation strategy Neck: intubated Oral: intubated Cardiovascular: limited due to PPE conservation strategy Respiratory: limited due to PPE conservation strategy GI: limited due to PPE conservation strategy Musculoskeletal: limited due to PPE conservation strategy Skin: limited due to PPE conservation strategy Hem/Lymphatic: limited due to PPE conservation strategy Psych: no agitation Neurological: sedated, intubated, on the vent, exam limited - Constitutional Vitals: Vital Signs Temp Pulse Resp BP Pulse Ox 98.1 F 107 H 20 122/72 100 07/20/19 12:00 07/20/19 12:34 07/20/19 12:00 07/20/19 12:34 07/20/19 12:34 Temperature -Last 24 Hours Temperature 98.1 F Temperature 98.1 F Temperature 97.6 F Temperature 98 F Temperature 97 F - Labs CBC & Chem 7: 07/19/19 08:45 07/20/19 04:39 Labs: Abnormal lab results 07/19/19 07/19/19 07/20/19 Range/Units 18:25 23:44 04:39 Chloride 110.3 H (98-107) mmol/L BUN 44 H (9-20) mg/dL Creatinine 0.6 L (0.8-1.5) mg/dL Glucose 120 H (75-100) mg/dL POC Glucose 115 H 117 H (70-105) 07/20/19 Range/Units 05:30 Chloride (98-107) mmol/L BUN (9-20) mg/dL Creatinine (0.8-1.5) mg/dL Glucose (75-100) mg/dL POC Glucose 131 H (70-105)
--- NOTE | 2019-07-20 15:17 | Consultation ---
History of Present Illness Consult date: 07/20/19 Chief complaint: clogged peg - History of present illness History of present illness: 69 yo M with hx of CVA, HTN, DM, Dementia who presented to the ER with SOB, respiratory failure and was treated accordingly. W/u revealed he was COVID+. Patient intubated by EMS. He already has a PEG tube. Surgery consulted to evaluate clogged PEG. Past History Past Medical History: COPD, diabetes, hypertension, seizures Past Surgical History: Other (PEG) Social history: full code. denies: smoking, alcohol abuse Family history: hypertension Medications and Allergies Allergies Allergy/AdvReac Type Severity Reaction Status Date / Time No Known Allergies Allergy Unverified 09/09/16 16:29 Home Medications Medication Instructions Recorded Confirmed Last Taken Type Acetaminophen [Tylenol] 500 mg PO TID 07/04/19 07/04/19 Unknown History Albuterol Sulfate [Proair 90 mcg IH TID 07/04/19 07/04/19 Unknown History Digihaler] Amlodipine Besylate [Norvasc] 2.5 mg PO QDAY 07/04/19 07/04/19 Unknown History Aspirin [Aspirin BABY CHEW TAB] 81 mg PO QDAY 07/04/19 07/04/19 Unknown History Atorvastatin Calcium [Lipitor] 80 mg PO QDAY 07/04/19 07/04/19 Unknown History Benztropine Mesylate 0.5 mg PO QDAY 07/04/19 07/04/19 Unknown History Budesonide/Formoterol Fumarate 10.2 gm IH BID 07/04/19 07/04/19 Unknown History [Budesonide-Formoterol 160-4.5] Divalproex ER [DepaKOTE ER] 1,000 mg PO QDAY 07/04/19 07/04/19 Unknown History Docusate Sodium [Colace] 100 mg PO QDAY 07/04/19 07/04/19 Unknown History Folic Acid [Folvite] 1 mg PO QDAY 07/04/19 07/04/19 Unknown History Hydrophilic Ointment [Dermafix] 113 gm TP QDAY 07/04/19 07/04/19 Unknown History Losartan [Cozaar] 100 mg PO QDAY 07/04/19 07/04/19 Unknown History Metformin HCl [Metformin HCl ER] 500 mg PO QDAY 07/04/19 07/04/19 Unknown History Metoprolol Tartrate 25 mg PO BID 07/04/19 07/04/19 Unknown History Multivit with Minerals/Ginseng 1 each PO QDAY 07/04/19 07/04/19 Unknown History [Super Ginseng Multivit Cap] Quetiapine Fumarate [SEROquel Xr] 400 mg PO QHS 07/04/19 07/04/19 Unknown History Sertraline HCl [Zoloft] 100 mg PO QDAY 07/04/19 07/04/19 Unknown History Sildenafil Citrate [Viagra] 100 mg PO QDAY PRN 07/04/19 07/04/19 Unknown History Tamsulosin [Flomax] 0.4 mg PO QDAY 07/04/19 07/04/19 Unknown History Active Meds: Active Medications Acetaminophen (Tylenol) 650 mg IN Q6H PRN PRN Reason: Pain MILD(1-3)/Fever >100.5/MURO Acetaminophen (Tylenol) 650 mg PO Q6HR PRN PRN Reason: Pain, Mild (1-3) FEVER Last Admin: 07/15/19 20:35 Dose: 650 mg Documented by: Lipase/Protease/Amylase (Pancretoniae Dr 10,500 Unit) 1 each FEEDTUBE PRN PRN PRN Reason: For Clogged Feeding Tube Last Admin: 07/20/19 06:15 Dose: 1 each Documented by: Aspirin (Baby Aspirin) 81 mg PO QDAY [facility] Last Admin: 07/20/19 10:20 Dose: 81 mg Documented by: Dextrose (D50w (25gm) Syringe) 50 ml IV Q30MIN PRN; Protocol PRN Reason: Hypoglycemia Docusate Sodium (Colace) 100 mg PO BID [facility] Last Admin: 07/20/19 10:20 Dose: 100 mg Documented by: Famotidine (Pepcid) 20 mg PO BID [facility] Last Admin: 07/20/19 10:20 Dose: 20 mg Documented by: Folic Acid (Folvite) 1 mg PO QDAY [facility] Last Admin: 07/20/19 10:20 Dose: 1 mg Documented by: Hydrophilic Ointment (Vaseline Lip Therapy) 1 applic TP Q2HR PRN PRN Reason: Dry Lips Last Admin: 07/05/19 17:42 Dose: 1 applic Documented by: Norepinephrine (Levophed Drip 4 Mg/Ns 250 Ml) 4 mg in 250 mls @ 7.5 mls/hr IV TITR [facility]; Protocol Last Titration: 07/20/19 01:00 Dose: Infused Documented by: Insulin Human Lispro (Humalog) 0 unit SUB-Q Q6HR [facility]; Protocol Last Admin: 07/20/19 01:39 Dose: Not Given Documented by: Levetiracetam (Keppra) 750 mg FEEDTUBE Q12HR [facility] Last Admin: 07/20/19 10:20 Dose: 750 mg Documented by: Metoprolol Tartrate (Metoprolol) 5 mg IV Q6HR PRN PRN Reason: Tachyarrhythmias Last Admin: 07/12/19 15:30 Dose: 5 mg Documented by: Multi-Ingred Cream/Lotion/Oil/Oint (Artificial Tears Ophth Oint) 1 applic OU Q4HR PRN PRN Reason: Dry Eye(s) Last Admin: 07/05/19 13:19 Dose: 1 applic Documented by: Naloxone HCl (Naloxone) 0.1 mg IV Q2MIN PRN PRN Reason: Res Rate </= 8 or 02 SAT < 92% Oxycodone/Acetaminophen (Percocet 5/325) 1 tab PO Q4H PRN PRN Reason: Pain, Moderate (4-6) Scopolamine (Transderm-Scop) 1 each TD Q3D [facility] Last Admin: 07/19/19 12:04 Dose: 1 each Documented by: Simple Syrup (Simple Syrup) 15 ml FEEDTUBE PRN PRN PRN Reason: Hypoglycemia Last Admin: 07/10/19 21:56 Dose: 15 ml Documented by: Simple Syrup (Simple Syrup) 30 ml FEEDTUBE PRN PRN PRN Reason: Hypoglycemia Sodium Bicarbonate (Sodium Bicarbonate) 325 mg FEEDTUBE PRN PRN PRN Reason: For Clogged Feeding Tube Last Admin: 07/20/19 10:20 Dose: 325 mg Documented by: Sodium Chloride (Sodium Chloride Flush Syringe 10 Ml) 10 ml IV BID [facility] Last Admin: 07/19/19 21:10 Dose: 10 ml Documented by: Sodium Chloride (Sodium Chloride Flush Syringe 10 Ml) 10 ml IV PRN PRN PRN Reason: LINE FLUSH Sodium Hypochlorite (Dakin's Half Strength) 1 applic TP BID [facility] Last Admin: 07/19/19 21:09 Dose: 1 applicatio Documented by: Review of Systems ROS unobtainable: due to endotracheal tube, due to mental status Exam Vital Signs Pulse Resp 93 H 23 07/03/19 19:28 07/03/19 19:28 Narrative exam: Gen: Intubated, sedated, unresponsive ENT: ETT in place CV: s1, S2+ Resp: on vent Abd: soft, NT, ND. PEG tube in place with bumper at 2cm at the skin. Site is c/d/i. Very long PEG tubing with thick material inside. The entire tube was stripped and a large amount of formed tube feed was expressed. The tube was then flushed with sprite and flushed easily. Tube clamped. Ext: generalized edema Results - Labs 07/19/19 08:45 07/20/19 04:39 Abnormal lab results 07/19/19 07/19/19 07/20/19 Range/Units 18:25 23:44 04:39 Chloride 110.3 H (98-107) mmol/L BUN 44 H (9-20) mg/dL Creatinine 0.6 L (0.8-1.5) mg/dL Glucose 120 H (75-100) mg/dL POC Glucose 115 H 117 H (70-105) 07/20/19 Range/Units 05:30 Chloride (98-107) mmol/L BUN (9-20) mg/dL Creatinine (0.8-1.5) mg/dL Glucose (75-100) mg/dL POC Glucose 131 H (70-105) Diabetes panel 07/20/19 Range/Units 04:39 Sodium 144 (137-145) mmol/L Potassium 3.6 (3.6-5.0) mmol/L Chloride 110.3 H (98-107) mmol/L Carbon Dioxide 25 (22-30) mmol/L BUN 44 H (9-20) mg/dL Creatinine 0.6 L (0.8-1.5) mg/dL Glucose 120 H (75-100) mg/dL Calcium 9.5 (8.4-10.2) mg/dL Calcium panel 07/20/19 Range/Units 04:39 Calcium 9.5 (8.4-10.2) mg/dL Pituitary panel 07/20/19 Range/Units 04:39 Sodium 144 (137-145) mmol/L Potassium 3.6 (3.6-5.0) mmol/L Chloride 110.3 H (98-107) mmol/L Carbon Dioxide 25 (22-30) mmol/L BUN 44 H (9-20) mg/dL Creatinine 0.6 L (0.8-1.5) mg/dL Glucose 120 H (75-100) mg/dL Calcium 9.5 (8.4-10.2) mg/dL Adrenal panel 07/20/19 Range/Units 04:39 Sodium 144 (137-145) mmol/L Potassium 3.6 (3.6-5.0) mmol/L Chloride 110.3 H (98-107) mmol/L Carbon Dioxide 25 (22-30) mmol/L BUN 44 H (9-20) mg/dL Creatinine 0.6 L (0.8-1.5) mg/dL Glucose 120 H (75-100) mg/dL Calcium 9.5 (8.4-10.2) mg/dL Assessment and Plan 69 yo M with clogged PEG 1. PEG is now unclogged. OK to resume TF 2. No further surgical intervention needed Will s/o. D/W patient's RN Thank you, please call with questions.
--- NOTE | 2019-07-20 16:05 | Progress Note ---
Assessment and Plan S/p Cardiopulmonary arrest with ROSC Severe Sepsis with septic shock. Acute hypoxemic respiratory failure on MVS COVID-19 positive with elevated markers Bilateral pneumonia Elevated LFTs. Oropharyngeal dysphagia s/p PEG Acute kidney injury Decubitus ulcers-unstageable Moderate protein calorie malnutriton [id number] metabolic acidosis Leukocytosis -improving Thrombocytopenia Microcytic anemia General surgery consult placed to address non-functioning PEG tube( discussed with her) -Continue all critical care as documented below -ABG, CXR in the am, CBC in the am - continue airborne, droplet and contact isolation for COVID-19 - continue wound care per WCT - sedation prn for target RASS 0 to -1 - continue to wean supplemental oxygen for target O2 sat's > 90% - Daily SAT's and SBT assessment as tolerated - VAP bundle addressed - continue lung protective strategies - continue bronchodilators with pulmonary hygiene per RT - wean per pulmonary driven protocols otherwise - accuchecks with glycemic control per SSI (While critically ill target blood glucose of 140-180 mg/dL; avoid hypoglycemia) - continue to avoid benzodiazepines, reduce the possibility of delirium - prn analgesia per CPOT score - Maintenance of sleep-wake cycle, avoid delirium - continue enteral nutritional support at goal rate as tolerated - VTE prophylaxis-SCDs -Stress ulcer prophylaxis- Famotidine - PT/OT/ROM exercises - continue mobility protocol, off loading and skin assessment for pressure ulcer prevention - Monitor hemodynamics closely -Wright catheter in this critically ill patient with unstageable sacral decubitus ulcer -PEG site care - continue other care per attending / other consultants - discharge planning ongoing concurrently .... Re-evaluate in am & prn CONDITION: CRITICAL PROGNOSIS: GUARDED CODE STATUS: DNAR The high probability of a clinically significant, sudden or life-threatening deterioration of the [respiratory & cardiovascular] system(s) required my full and direct attention, intervention and personal management. The aggregate critical care time was [31] minutes without overlap. Time includes spent on; [x] Data Review and interpretation [x] Patient assessment and monitoring of vital signs [x] Documentation [x] Medication orders and management Subjective Date of service: 07/20/19 Principal diagnosis: Bilateral pneumonia, severe sepsis with septic shock, encephalopathy Interval history: The patient is a 69-year-old male with CVA, hypertension, dementia, schizophrenia, alcohol use disorder was admitted to the emergency room after being brought in by EMS with progressive shortness of breath and unresponsiveness. He was noted to have agonal breathing and a faint pulse r equiring CPR. Patient was intubated and brought to the hospital. It seems, patient was on home hospice. Currently, remains critically ill, intubated, on mechanical ventilation. His COVID test resulted positive. Patient is seen today for: s/p cardiopulmonary arrest with ROSC;Ac hypoxemic Resp failure on MVS; Severe sepsis with Shock; Bilateral Pneumonia; POSITIVE coronavirus-19 infection. Seen and examined at bedside; 24hour events reviewed; nursing and respiratory care staff consulted; no adverse overnight events reported to me; resting in bed. No reported fevers. On MVS and tolerating it well; Tube feedings on hold secondary to non-functioning PEG tube, no diarrhea, Mental status changes persist Improved oral and ETT secretions Current setting AC-VC 20/500/50%/PEEP 6 ABG 7.34/45/95/24 Objective Vital Signs - 12hr 07/20/19 07/20/19 07/20/19 04:16 04:30 04:45 Temperature Pulse Rate 114 H 115 H 115 H Pulse Rate [ From Monitor] Respiratory 20 18 21 Rate Blood Pressure 112/63 122/63 129/69 O2 Sat by Pulse 100 100 99 Oximetry 07/20/19 07/20/19 07/20/19 05:00 05:16 05:30 Temperature Pulse Rate 114 H 113 H 111 H Pulse Rate [ From Monitor] Respiratory 23 25 H 17 Rate Blood Pressure 122/61 125/71 125/71 O2 Sat by Pulse 90 100 100 Oximetry 07/20/19 07/20/19 07/20/19 05:46 06:00 06:15 Temperature Pulse Rate 113 H 113 H 110 H Pulse Rate [ From Monitor] Respiratory 17 20 20 Rate Blood Pressure 129/88 129/54 117/66 O2 Sat by Pulse 100 100 100 Oximetry 07/20/19 07/20/19 07/20/19 06:30 06:46 07:00 Temperature Pulse Rate 108 H 109 H 106 H Pulse Rate [ From Monitor] Respiratory 20 21 20 Rate Blood Pressure 127/66 128/68 117/66 O2 Sat by Pulse 100 100 100 Oximetry 07/20/19 07/20/19 07/20/19 07:15 07:30 07:46 Temperature Pulse Rate 107 H 107 H 107 H Pulse Rate [ From Monitor] Respiratory 21 21 20 Rate Blood Pressure 125/65 132/63 136/72 O2 Sat by Pulse 100 100 100 Oximetry 07/20/19 07/20/19 07/20/19 08:00 08:16 08:30 Temperature 98.1 F Pulse Rate 109 H 109 H 107 H Pulse Rate [ 110 H From Monitor] Respiratory 20 20 20 Rate Blood Pressure 132/63 134/68 137/73 O2 Sat by Pulse 92 100 100 Oximetry 07/20/19 07/20/19 07/20/19 08:45 08:49 09:00 Temperature Pulse Rate 106 H 107 H 107 H Pulse Rate [ From Monitor] Respiratory 20 20 Rate Blood Pressure 127/71 127/71 118/70 O2 Sat by Pulse 100 100 100 Oximetry 07/20/19 07/20/19 07/20/19 09:15 09:30 09:45 Temperature Pulse Rate 106 H 106 H 106 H Pulse Rate [ From Monitor] Respiratory 22 17 20 Rate Blood Pressure 129/75 137/70 141/70 O2 Sat by Pulse 100 100 100 Oximetry 07/20/19 07/20/19 07/20/19 10:00 10:16 10:30 Temperature Pulse Rate 104 H 107 H 105 H Pulse Rate [ From Monitor] Respiratory 19 22 20 Rate Blood Pressure 141/70 139/72 139/72 O2 Sat by Pulse 100 100 100 Oximetry 07/20/19 07/20/19 07/20/19 10:46 11:00 11:16 Temperature Pulse Rate 106 H 106 H 106 H Pulse Rate [ From Monitor] Respiratory 20 21 22 Rate Blood Pressure 80/56 80/56 130/65 O2 Sat by Pulse 100 100 100 Oximetry 07/20/19 07/20/19 07/20/19 11:30 11:46 12:00 Temperature 98.1 F Pulse Rate 106 H 105 H 104 H Pulse Rate [ 110 H From Monitor] Respiratory 17 20 20 Rate Blood Pressure 130/65 132/72 136/70 O2 Sat by Pulse 100 100 100 Oximetry 07/20/19 07/20/19 07/20/19 12:16 12:30 12:34 Temperature Pulse Rate 106 H 106 H 107 H Pulse Rate [ From Monitor] Respiratory 22 18 Rate Blood Pressure 127/64 122/72 122/72 O2 Sat by Pulse 99 100 100 Oximetry 07/20/19 07/20/19 07/20/19 12:45 13:00 13:16 Temperature Pulse Rate 105 H 105 H 103 H Pulse Rate [ From Monitor] Respiratory 22 20 20 Rate Blood Pressure 134/71 129/66 128/63 O2 Sat by Pulse 100 100 100 Oximetry 07/20/19 07/20/19 07/20/19 13:30 13:46 14:00 Temperature Pulse Rate 105 H 107 H 104 H Pulse Rate [ From Monitor] Respiratory 20 16 21 Rate Blood Pressure 135/66 128/57 131/67 O2 Sat by Pulse 100 88 98 Oximetry 07/20/19 14:16 Temperature Pulse Rate 104 H Pulse Rate [ From Monitor] Respiratory 15 Rate Blood Pressure 138/76 O2 Sat by Pulse 100 Oximetry Constitutional: appears uncomfortable, other (eelderly and chronically ill looking AAM, normocep[krystina;ic with mildly increased respiratory effort at rest) Eyes: non-icteric ENT: oropharynx moist, other (ETT 24 cm RUTH) Neck: supple, no lymphadenopathy, no JVD Effort: mildly labored Ascultation: Bilateral: diminished breath sounds, rhonchi Percussion: Bilateral: not dull Cardiovascular: regular rate and rhythm Gastrointestinal: normoactive bowel sounds, soft, non-tender, non-distended, other (+ PEG tube with mild TF leakage) Integumentary: decubitus ulcer Extremities: no cyanosis, no edema, pink and warm, pulses normal Neurologic: unable to assess Psychiatric: other (Unable to assess re: AMS) CBC and BMP: 07/22/19 05:38 07/23/19 04:52 ABG, PT/INR, D-dimer: ABG ABG pH 7.342 pH Units (7.350-7.450) L 07/19/19 03:45 ABG pCO2 45.2 mm Hg 07/19/19 03:45 ABG pO2 95.0 mm Hg (80.0-90.0) H 07/19/19 03:45 ABG O2 Saturation 97.1 % (95.0-99.0) 07/19/19 03:45 PT/INR, D-dimer PT 16.0 Sec. (12.2-14.9) H 07/03/19 22:20 INR 1.26 (0.87-1.13) H 07/03/19 22:20 D-Dimer 1142.18 ng/mlDDU (0-234) H 07/08/19 00:45 Abnormal lab findings: Abnormal Labs 07/03/19 07/03/19 07/03/19 19:57 21:10 21:13 WBC RBC Hgb Hct MCV MCH MCHC RDW Plt Count Lymph % (Auto) [place] % (Auto) Lymph # [place] # Baso # Seg Neutrophils % Seg Neuts % (Manual) Lymphocytes % (Manual) Seg Neutrophils # Seg Neutrophils # Man Lymphocytes # (Manual) PT INR D-Dimer ABG pH 7.238 L ABG pO2 210.8 H ABG HCO3 15.4 L ABG O2 Saturation 99.2 H ABG Base Excess -11.1 L ABG Hemoglobin 8.0 L Oxyhemoglobin Sodium 124 L Potassium Chloride 92.9 L Carbon Dioxide 10 L BUN 23 H Creatinine 0.5 L Glucose 118 H POC Glucose Lactic Acid Calcium 7.0 L Magnesium Iron TIBC Ferritin AST 70 H ALT 88 H Lactate Dehydrogenase Troponin T 0.032 H C-Reactive Protein Total Protein 5.0 L Albumin 1.8 L Cholesterol 47 L LDL Cholesterol Direct 25 L HDL Cholesterol 20 L Urine WBC (Auto) 12.0 H Vancomycin Trough Coronavirus (PCR) Crossmatch 07/03/19 07/03/19 07/03/19 22:20 22:20 22:20 WBC 30.5 H RBC 2.96 L Hgb 7.7 L Hct 23.9 L MCV 81 L MCH 26 L MCHC RDW 18.6 H Plt Count 459 H Lymph % (Auto) [place] % (Auto) Lymph # [place] # Baso # Seg Neutrophils % Seg Neuts % (Manual) 93.0 H Lymphocytes % (Manual) 0.5 L Seg Neutrophils # Seg Neutrophils # Man 28.4 H Lymphocytes # (Manual) 0.2 L PT 16.0 H INR 1.26 H D-Dimer ABG pH ABG pO2 ABG HCO3 ABG O2 Saturation ABG Base Excess ABG Hemoglobin Oxyhemoglobin Sodium Potassium Chloride Carbon Dioxide BUN Creatinine Glucose POC Glucose Lactic Acid 6.90 H* Calcium Magnesium Iron TIBC Ferritin AST ALT Lactate Dehydrogenase Troponin T C-Reactive Protein Total Protein Albumin Cholesterol LDL Cholesterol Direct HDL Cholesterol Urine WBC (Auto) Vancomycin Trough Coronavirus (PCR) Crossmatch 07/03/19 07/04/19 07/04/19 23:58 05:15 07:05 WBC 17.1 H RBC 3.22 L Hgb 8.3 L Hct 25.4 L MCV 79 L MCH 26 L MCHC RDW 18.6 H Plt Count Lymph % (Auto) [place] % (Auto) Lymph # [place] # Baso # Seg Neutrophils % Seg Neuts % (Manual) 74.0 H Lymphocytes % (Manual) 0 L Seg Neutrophils # Seg Neutrophils # Man 12.7 H Lymphocytes # (Manual) 0.0 L PT INR D-Dimer ABG pH 7.310 L ABG pO2 73.2 L ABG HCO3 17.8 L ABG O2 Saturation 93.8 L ABG Base Excess -7.7 L ABG Hemoglobin 9.6 L Oxyhemoglobin 92.3 L Sodium Potassium Chloride Carbon Dioxide BUN Creatinine Glucose POC Glucose Lactic Acid 7.10 H* Calcium Magnesium Iron TIBC Ferritin AST ALT Lactate Dehydrogenase Troponin T C-Reactive Protein Total Protein Albumin Cholesterol LDL Cholesterol Direct HDL Cholesterol Urine WBC (Auto) Vancomycin Trough Coronavirus (PCR) Crossmatch 07/04/19 07/04/19 07/04/19 07:05 07:05 07:05 WBC RBC Hgb Hct MCV MCH MCHC RDW Plt Count Lymph % (Auto) [place] % (Auto) Lymph # [place] # Baso # Seg Neutrophils % Seg Neuts % (Manual) Lymphocytes % (Manual) Seg Neutrophils # Seg Neutrophils # Man Lymphocytes # (Manual) PT INR D-Dimer ABG pH ABG pO2 ABG HCO3 ABG O2 Saturation ABG Base Excess ABG Hemoglobin Oxyhemoglobin Sodium 120 L Potassium 5.1 H Chloride 90.0 L Carbon Dioxide 14 L BUN 26 H Creatinine 0.5 L Glucose POC Glucose Lactic Acid 3.30 H* Calcium 8.0 L Magnesium Iron 9 L TIBC 97 L Ferritin AST 73 H ALT 91 H Lactate Dehydrogenase Troponin T C-Reactive Protein Total Protein 5.5 L Albumin 2.0 L Cholesterol LDL Cholesterol Direct HDL Cholesterol Urine WBC (Auto) Vancomycin Trough Coronavirus (PCR) Crossmatch 07/04/19 07/04/19 07/04/19 09:39 09:39 09:39 WBC RBC Hgb Hct MCV MCH MCHC RDW Plt Count Lymph % (Auto) [place] % (Auto) Lymph # [place] # Baso # Seg Neutrophils % Seg Neuts % (Manual) Lymphocytes % (Manual) Seg Neutrophils # Seg Neutrophils # Man Lymphocytes # (Manual) PT INR D-Dimer 1419.14 H ABG pH ABG pO2 ABG HCO3 ABG O2 Saturation ABG Base Excess ABG Hemoglobin Oxyhemoglobin Sodium Potassium Chloride Carbon Dioxide BUN Creatinine Glucose POC Glucose Lactic Acid Calcium Magnesium Iron TIBC Ferritin 1719.0 H AST ALT Lactate Dehydrogenase 234 H Troponin T C-Reactive Protein 15.50 H Total Protein Albumin Cholesterol LDL Cholesterol Direct HDL Cholesterol Urine WBC (Auto) Vancomycin Trough Coronavirus (PCR) Crossmatch 07/04/19 07/04/19 07/04/19 10:09 18:08 18:28 WBC RBC Hgb Hct MCV MCH MCHC RDW Plt Count Lymph % (Auto) [place] % (Auto) Lymph # [place] # Baso # Seg Neutrophils % Seg Neuts % (Manual) Lymphocytes % (Manual) Seg Neutrophils # Seg Neutrophils # Man Lymphocytes # (Manual) PT INR D-Dimer ABG pH ABG pO2 ABG HCO3 ABG O2 Saturation ABG Base Excess ABG Hemoglobin Oxyhemoglobin Sodium 117 L* Potassium 5.6 H Chloride 90.3 L Carbon Dioxide 16 L BUN 28 H Creatinine 0.5 L Glucose 58 L POC Glucose 65 L Lactic Acid Calcium 8.2 L Magnesium Iron TIBC Ferritin AST ALT Lactate Dehydrogenase Troponin T C-Reactive Protein Total Protein Albumin Cholesterol LDL Cholesterol Direct HDL Cholesterol Urine WBC (Auto) Vancomycin Trough Coronavirus (PCR) Positive A Crossmatch 07/04/19 07/04/19 07/04/19 23:45 Unknown Unknown WBC RBC Hgb Hct MCV MCH MCHC RDW Plt Count Lymph % (Auto) [place] % (Auto) Lymph # [place] # Baso # Seg Neutrophils % Seg Neuts % (Manual) Lymphocytes % (Manual) Seg Neutrophils # Seg Neutrophils # Man Lymphocytes # (Manual) PT INR D-Dimer 759.77 H ABG pH ABG pO2 ABG HCO3 ABG O2 Saturation ABG Base Excess ABG Hemoglobin Oxyhemoglobin Sodium 122 L Potassium Chloride 93.0 L Carbon Dioxide 19 L BUN 27 H Creatinine 0.5 L Glucose POC Glucose Lactic Acid Calcium 8.3 L Magnesium Iron TIBC Ferritin 1301.0 H AST ALT Lactate Dehydrogenase Troponin T C-Reactive Protein Total Protein Albumin Cholesterol LDL Cholesterol Direct HDL Cholesterol Urine WBC (Auto) Vancomycin Trough Coronavirus (PCR) Crossmatch 07/04/19 07/05/19 07/05/19 Unknown 03:20 04:00 WBC RBC Hgb Hct MCV MCH MCHC RDW Plt Count Lymph % (Auto) [place] % (Auto) Lymph # [place] # Baso # Seg Neutrophils % Seg Neuts % (Manual) Lymphocytes % (Manual) Seg Neutrophils # Seg Neutrophils # Man Lymphocytes # (Manual) PT INR D-Dimer ABG pH ABG pO2 60.6 L ABG HCO3 ABG O2 Saturation 93.5 L ABG Base Excess -2.4 L ABG Hemoglobin 6.9 L Oxyhemoglobin 92.0 L Sodium 125 L Potassium Chloride 92.6 L Carbon Dioxide 19 L BUN 24 H Creatinine 0.6 L Glucose POC Glucose Lactic Acid Calcium 8.2 L Magnesium 1.40 L Iron TIBC Ferritin AST ALT Lactate Dehydrogenase 242 H Troponin T C-Reactive Protein 16.70 H Total Protein Albumin Cholesterol LDL Cholesterol Direct HDL Cholesterol Urine WBC (Auto) Vancomycin Trough Coronavirus (PCR) Crossmatch 07/05/19 07/05/19 07/05/19 10:11 16:15 17:54 WBC 46.4 H* RBC 2.77 L Hgb 7.2 L Hct 21.9 L MCV 79 L MCH 26 L MCHC RDW 19.0 H Plt Count Lymph % (Auto) [place] % (Auto) Lymph # [place] # Baso # Seg Neutrophils % Seg Neuts % (Manual) 82.0 H Lymphocytes % (Manual) 1.0 L Seg Neutrophils # Seg Neutrophils # Man 38.0 H Lymphocytes # (Manual) 0.5 L PT INR D-Dimer ABG pH ABG pO2 ABG HCO3 ABG O2 Saturation ABG Base Excess ABG Hemoglobin Oxyhemoglobin Sodium Potassium Chloride Carbon Dioxide BUN Creatinine Glucose POC Glucose 69 L Lactic Acid Calcium Magnesium Iron TIBC Ferritin AST ALT Lactate Dehydrogenase Troponin T C-Reactive Protein Total Protein Albumin Cholesterol LDL Cholesterol Direct HDL Cholesterol Urine WBC (Auto) Vancomycin Trough 23.2 H Coronavirus (PCR) Crossmatch 07/05/19 07/06/19 07/06/19 19:58 00:27 00:27 WBC RBC Hgb Hct MCV MCH MCHC RDW Plt Count Lymph % (Auto) [place] % (Auto) Lymph # [place] # Baso # Seg Neutrophils % Seg Neuts % (Manual) Lymphocytes % (Manual) Seg Neutrophils # Seg Neutrophils # Man Lymphocytes # (Manual) PT INR D-Dimer 1333.22 H ABG pH ABG pO2 ABG HCO3 ABG O2 Saturation ABG Base Excess ABG Hemoglobin Oxyhemoglobin Sodium 127 L Potassium Chloride Carbon Dioxide BUN Creatinine Glucose POC Glucose Lactic Acid Calcium Magnesium Iron TIBC Ferritin 977.1 H AST ALT Lactate Dehydrogenase Troponin T C-Reactive Protein Total Protein Albumin Cholesterol LDL Cholesterol Direct HDL Cholesterol Urine WBC (Auto) Vancomycin Trough Coronavirus (PCR) Crossmatch 07/06/19 07/06/19 07/06/19 00:27 02:00 02:56 WBC RBC Hgb Hct MCV MCH MCHC RDW Plt Count Lymph % (Auto) [place] % (Auto) Lymph # [place] # Baso # Seg Neutrophils % Seg Neuts % (Manual) Lymphocytes % (Manual) Seg Neutrophils # Seg Neutrophils # Man Lymphocytes # (Manual) PT INR D-Dimer ABG pH ABG pO2 70.3 L ABG HCO3 ABG O2 Saturation 94.8 L ABG Base Excess ABG Hemoglobin 8.0 L Oxyhemoglobin 93.2 L Sodium Potassium Chloride Carbon Dioxide BUN Creatinine Glucose POC Glucose 117 H Lactic Acid Calcium Magnesium Iron TIBC Ferritin AST ALT Lactate Dehydrogenase 236 H Troponin T C-Reactive Protein 22.90 H Total Protein Albumin Cholesterol LDL Cholesterol Direct HDL Cholesterol Urine WBC (Auto) Vancomycin Trough Coronavirus (PCR) Crossmatch 07/06/19 07/06/19 07/06/19 03:49 03:49 07:40 WBC 38.8 H RBC 2.51 L Hgb 6.7 L Hct 19.9 L* MCV 79 L MCH 27 L MCHC RDW 19.2 H Plt Count Lymph % (Auto) [place] % (Auto) Lymph # [place] # Baso # Seg Neutrophils % Seg Neuts % (Manual) 90.5 H Lymphocytes % (Manual) 1.0 L Seg Neutrophils # Seg Neutrophils # Man 35.1 H Lymphocytes # (Manual) 0.4 L PT INR D-Dimer ABG pH ABG pO2 ABG HCO3 ABG O2 Saturation ABG Base Excess ABG Hemoglobin Oxyhemoglobin Sodium 131 L Potassium Chloride 96.9 L Carbon Dioxide 18 L BUN 23 H Creatinine 0.5 L Glucose POC Glucose Lactic Acid Calcium 8.0 L Magnesium Iron TIBC Ferritin AST ALT Lactate Dehydrogenase Troponin T C-Reactive Protein Total Protein Albumin Cholesterol LDL Cholesterol Direct HDL Cholesterol Urine WBC (Auto) Vancomycin Trough Coronavirus (PCR) Crossmatch See Detail 07/06/19 07/06/19 07/06/19 12:38 14:39 20:00 WBC RBC Hgb Hct MCV MCH MCHC RDW Plt Count Lymph % (Auto) [place] % (Auto) Lymph # [place] # Baso # Seg Neutrophils % Seg Neuts % (Manual) Lymphocytes % (Manual) Seg Neutrophils # Seg Neutrophils # Man Lymphocytes # (Manual) PT INR D-Dimer ABG pH ABG pO2 ABG HCO3 ABG O2 Saturation ABG Base Excess ABG Hemoglobin Oxyhemoglobin Sodium Potassium Chloride Carbon Dioxide BUN Creatinine Glucose POC Glucose 112 H 111 H 140 H Lactic Acid Calcium Magnesium Iron TIBC Ferritin AST ALT Lactate Dehydrogenase Troponin T C-Reactive Protein Total Protein Albumin Cholesterol LDL Cholesterol Direct HDL Cholesterol Urine WBC (Auto) Vancomycin Trough Coronavirus (PCR) Crossmatch 07/06/19 07/06/19 07/07/19 22:43 22:56 02:20 WBC RBC Hgb 7.9 L Hct 23.1 L MCV MCH MCHC RDW Plt Count Lymph % (Auto) [place] % (Auto) Lymph # [place] # Baso # Seg Neutrophils % Seg Neuts % (Manual) Lymphocytes % (Manual) Seg Neutrophils # Seg Neutrophils # Man Lymphocytes # (Manual) PT INR D-Dimer ABG pH ABG pO2 ABG HCO3 ABG O2 Saturation ABG Base Excess ABG Hemoglobin Oxyhemoglobin Sodium Potassium Chloride Carbon Dioxide BUN Creatinine Glucose POC Glucose 122 H 149 H Lactic Acid Calcium Magnesium Iron TIBC Ferritin AST ALT Lactate Dehydrogenase Troponin T C-Reactive Protein Total Protein Albumin Cholesterol LDL Cholesterol Direct HDL Cholesterol Urine WBC (Auto) Vancomycin Trough Coronavirus (PCR) Crossmatch 07/07/19 07/07/19 07/07/19 04:35 05:27 05:34 WBC 23.1 H RBC 3.00 L Hgb 8.1 L Hct 24.2 L MCV 81 L MCH 27 L MCHC RDW 20.6 H Plt Count Lymph % (Auto) [place] % (Auto) Lymph # [place] # Baso # Seg Neutrophils % Seg Neuts % (Manual) 90.0 H Lymphocytes % (Manual) 2.0 L Seg Neutrophils # Seg Neutrophils # Man 20.8 H Lymphocytes # (Manual) 0.5 L PT INR D-Dimer ABG pH ABG pO2 65.8 L ABG HCO3 ABG O2 Saturation 92.2 L ABG Base Excess ABG Hemoglobin 8.3 L Oxyhemoglobin 90.6 L Sodium Potassium Chloride Carbon Dioxide BUN Creatinine Glucose POC Glucose 132 H Lactic Acid Calcium Magnesium Iron TIBC Ferritin AST ALT Lactate Dehydrogenase Troponin T C-Reactive Protein Total Protein Albumin Cholesterol LDL Cholesterol Direct HDL Cholesterol Urine WBC (Auto) Vancomycin Trough Coronavirus (PCR) Crossmatch 07/07/19 07/07/19 07/07/19 05:34 11:50 15:58 WBC RBC Hgb 8.1 L Hct 24.2 L MCV MCH MCHC RDW Plt Count Lymph % (Auto) [place] % (Auto) Lymph # [place] # Baso # Seg Neutrophils % Seg Neuts % (Manual) Lymphocytes % (Manual) Seg Neutrophils # Seg Neutrophils # Man Lymphocytes # (Manual) PT INR D-Dimer ABG pH ABG pO2 ABG HCO3 ABG O2 Saturation ABG Base Excess ABG Hemoglobin Oxyhemoglobin Sodium 135 L Potassium 3.3 L Chloride Carbon Dioxide 20 L BUN 27 H Creatinine 0.6 L Glucose 121 H POC Glucose 123 H Lactic Acid Calcium 8.0 L Magnesium Iron TIBC Ferritin AST ALT Lactate Dehydrogenase Troponin T C-Reactive Protein Total Protein Albumin Cholesterol LDL Cholesterol Direct HDL Cholesterol Urine WBC (Auto) Vancomycin Trough Coronavirus (PCR) Crossmatch 07/07/19 07/07/19 07/07/19 17:42 22:00 23:53 WBC RBC Hgb 8.0 L Hct 23.4 L MCV MCH MCHC RDW Plt Count Lymph % (Auto) [place] % (Auto) Lymph # [place] # Baso # Seg Neutrophils % Seg Neuts % (Manual) Lymphocytes % (Manual) Seg Neutrophils # Seg Neutrophils # Man Lymphocytes # (Manual) PT INR D-Dimer ABG pH ABG pO2 ABG HCO3 ABG O2 Saturation ABG Base Excess ABG Hemoglobin Oxyhemoglobin Sodium Potassium Chloride Carbon Dioxide BUN Creatinine Glucose POC Glucose 107 H 117 H Lactic Acid Calcium Magnesium Iron TIBC Ferritin AST ALT Lactate Dehydrogenase Troponin T C-Reactive Protein Total Protein Albumin Cholesterol LDL Cholesterol Direct HDL Cholesterol Urine WBC (Auto) Vancomycin Trough Coronavirus (PCR) Crossmatch 07/08/19 07/08/19 07/08/19 00:45 00:45 00:45 WBC RBC Hgb Hct MCV MCH MCHC RDW Plt Count Lymph % (Auto) [place] % (Auto) Lymph # [place] # Baso # Seg Neutrophils % Seg Neuts % (Manual) Lymphocytes % (Manual) Seg Neutrophils # Seg Neutrophils # Man Lymphocytes # (Manual) PT INR D-Dimer 1142.18 H ABG pH ABG pO2 ABG HCO3 ABG O2 Saturation ABG Base Excess ABG Hemoglobin Oxyhemoglobin Sodium Potassium Chloride Carbon Dioxide BUN Creatinine Glucose POC Glucose Lactic Acid Calcium Magnesium Iron TIBC Ferritin 839.0 H AST ALT Lactate Dehydrogenase 253 H Troponin T C-Reactive Protein 18.90 H Total Protein Albumin Cholesterol LDL Cholesterol Direct HDL Cholesterol Urine WBC (Auto) Vancomycin Trough Coronavirus (PCR) Crossmatch 07/08/19 07/08/19 07/08/19 04:30 05:11 12:02 WBC RBC Hgb Hct MCV MCH MCHC RDW Plt Count Lymph % (Auto) [place] % (Auto) Lymph # [place] # Baso # Seg Neutrophils % Seg Neuts % (Manual) Lymphocytes % (Manual) Seg Neutrophils # Seg Neutrophils # Man Lymphocytes # (Manual) PT INR D-Dimer ABG pH ABG pO2 66.0 L ABG HCO3 ABG O2 Saturation 92.3 L ABG Base Excess ABG Hemoglobin 7.7 L Oxyhemoglobin 90.7 L Sodium Potassium Chloride Carbon Dioxide BUN Creatinine Glucose POC Glucose 108 H 153 H Lactic Acid Calcium Magnesium Iron TIBC Ferritin AST ALT Lactate Dehydrogenase Troponin T C-Reactive Protein Total Protein Albumin Cholesterol LDL Cholesterol Direct HDL Cholesterol Urine WBC (Auto) Vancomycin Trough Coronavirus (PCR) Crossmatch 07/08/19 07/08/19 07/08/19 16:15 18:22 23:35 WBC RBC Hgb Hct MCV MCH MCHC RDW Plt Count Lymph % (Auto) [place] % (Auto) Lymph # [place] # Baso # Seg Neutrophils % Seg Neuts % (Manual) Lymphocytes % (Manual) Seg Neutrophils # Seg Neutrophils # Man Lymphocytes # (Manual) PT INR D-Dimer ABG pH ABG pO2 ABG HCO3 ABG O2 Saturation ABG Base Excess ABG Hemoglobin Oxyhemoglobin Sodium 134 L Potassium 3.3 L Chloride Carbon Dioxide 21 L BUN 27 H Creatinine 0.6 L Glucose 146 H POC Glucose 134 H 133 H Lactic Acid Calcium Magnesium Iron TIBC Ferritin AST ALT Lactate Dehydrogenase Troponin T C-Reactive Protein Total Protein Albumin Cholesterol LDL Cholesterol Direct HDL Cholesterol Urine WBC (Auto) Vancomycin Trough Coronavirus (PCR) Crossmatch 07/09/19 07/09/19 07/09/19 04:30 04:30 05:00 WBC 18.9 H RBC 2.77 L Hgb 7.4 L Hct 22.8 L MCV 82 L MCH 27 L MCHC RDW 20.9 H Plt Count 130 L Lymph % (Auto) [place] % (Auto) Lymph # [place] # Baso # Seg Neutrophils % Seg Neuts % (Manual) 84.0 H Lymphocytes % (Manual) 0 L Seg Neutrophils # Seg Neutrophils # Man 15.9 H Lymphocytes # (Manual) 0.0 L PT INR D-Dimer ABG pH ABG pO2 ABG HCO3 ABG O2 Saturation ABG Base Excess ABG Hemoglobin Oxyhemoglobin Sodium Potassium 3.1 L Chloride Carbon Dioxide BUN 26 H Creatinine 0.5 L Glucose 125 H POC Glucose 155 H Lactic Acid Calcium Magnesium Iron TIBC Ferritin AST ALT Lactate Dehydrogenase Troponin T C-Reactive Protein Total Protein Albumin Cholesterol LDL Cholesterol Direct HDL Cholesterol Urine WBC (Auto) Vancomycin Trough Coronavirus (PCR) Crossmatch 07/09/19 07/09/19 07/09/19 05:55 12:22 17:50 WBC RBC Hgb Hct MCV MCH MCHC RDW Plt Count Lymph % (Auto) [place] % (Auto) Lymph # [place] # Baso # Seg Neutrophils % Seg Neuts % (Manual) Lymphocytes % (Manual) Seg Neutrophils # Seg Neutrophils # Man Lymphocytes # (Manual) PT INR D-Dimer ABG pH ABG pO2 62.8 L ABG HCO3 ABG O2 Saturation ABG Base Excess ABG Hemoglobin 6.1 L Oxyhemoglobin 93.9 L Sodium Potassium Chloride Carbon Dioxide BUN Creatinine Glucose POC Glucose 115 H 133 H Lactic Acid Calcium Magnesium Iron TIBC Ferritin AST ALT Lactate Dehydrogenase Troponin T C-Reactive Protein Total Protein Albumin Cholesterol LDL Cholesterol Direct HDL Cholesterol Urine WBC (Auto) Vancomycin Trough Coronavirus (PCR) Crossmatch 07/10/19 07/10/19 07/10/19 00:38 04:00 04:00 WBC RBC Hgb Hct MCV MCH MCHC RDW Plt Count Lymph % (Auto) [place] % (Auto) Lymph # [place] # Baso # Seg Neutrophils % Seg Neuts % (Manual) Lymphocytes % (Manual) Seg Neutrophils # Seg Neutrophils # Man Lymphocytes # (Manual) PT INR D-Dimer ABG pH ABG pO2 ABG HCO3 ABG O2 Saturation ABG Base Excess ABG Hemoglobin Oxyhemoglobin Sodium Potassium Chloride 107.9 H Carbon Dioxide BUN 26 H Creatinine 0.4 L Glucose 137 H POC Glucose 122 H Lactic Acid Calcium Magnesium 1.50 L Iron TIBC Ferritin AST ALT Lactate Dehydrogenase 277 H Troponin T C-Reactive Protein 15.10 H Total Protein Albumin Cholesterol LDL Cholesterol Direct HDL Cholesterol Urine WBC (Auto) Vancomycin Trough Coronavirus (PCR) Crossmatch 07/10/19 07/10/19 07/10/19 04:07 05:21 17:25 WBC RBC Hgb Hct MCV MCH MCHC RDW Plt Count Lymph % (Auto) [place] % (Auto) Lymph # [place] # Baso # Seg Neutrophils % Seg Neuts % (Manual) Lymphocytes % (Manual) Seg Neutrophils # Seg Neutrophils # Man Lymphocytes # (Manual) PT INR D-Dimer ABG pH ABG pO2 65.6 L ABG HCO3 26.3 H ABG O2 Saturation ABG Base Excess ABG Hemoglobin 6.7 L Oxyhemoglobin Sodium Potassium Chloride Carbon Dioxide BUN Creatinine Glucose POC Glucose 144 H 113 H Lactic Acid Calcium Magnesium Iron TIBC Ferritin AST ALT Lactate Dehydrogenase Troponin T C-Reactive Protein Total Protein Albumin Cholesterol LDL Cholesterol Direct HDL Cholesterol Urine WBC (Auto) Vancomycin Trough Coronavirus (PCR) Crossmatch 07/11/19 07/11/19 07/11/19 00:07 05:14 05:25 WBC RBC Hgb Hct MCV MCH MCHC RDW Plt Count Lymph % (Auto) [place] % (Auto) Lymph # [place] # Baso # Seg Neutrophils % Seg Neuts % (Manual) Lymphocytes % (Manual) Seg Neutrophils # Seg Neutrophils # Man Lymphocytes # (Manual) PT INR D-Dimer ABG pH ABG pO2 ABG HCO3 ABG O2 Saturation ABG Base Excess ABG Hemoglobin 5.8 L Oxyhemoglobin Sodium Potassium Chloride 108.0 H Carbon Dioxide BUN 26 H Creatinine 0.4 L Glucose 110 H POC Glucose 121 H Lactic Acid Calcium Magnesium Iron TIBC Ferritin AST ALT Lactate Dehydrogenase Troponin T C-Reactive Protein Total Protein Albumin Cholesterol LDL Cholesterol Direct HDL Cholesterol Urine WBC (Auto) Vancomycin Trough Coronavirus (PCR) Crossmatch 07/11/19 07/11/19 07/11/19 12:27 18:00 23:42 WBC RBC Hgb Hct MCV MCH MCHC RDW Plt Count Lymph % (Auto) [place] % (Auto) Lymph # [place] # Baso # Seg Neutrophils % Seg Neuts % (Manual) Lymphocytes % (Manual) Seg Neutrophils # Seg Neutrophils # Man Lymphocytes # (Manual) PT INR D-Dimer ABG pH ABG pO2 ABG HCO3 ABG O2 Saturation ABG Base Excess ABG Hemoglobin Oxyhemoglobin Sodium Potassium Chloride Carbon Dioxide BUN Creatinine Glucose POC Glucose 158 H 141 H 142 H Lactic Acid Calcium Magnesium Iron TIBC Ferritin AST ALT Lactate Dehydrogenase Troponin T C-Reactive Protein Total Protein Albumin Cholesterol LDL Cholesterol Direct HDL Cholesterol Urine WBC (Auto) Vancomycin Trough Coronavirus (PCR) Crossmatch 07/12/19 07/12/19 07/12/19 04:46 04:46 05:23 WBC 23.6 H RBC 2.51 L Hgb 6.7 L Hct 20.8 L MCV 83 L MCH 27 L MCHC RDW 20.3 H Plt Count Lymph % (Auto) [place] % (Auto) Lymph # [place] # Baso # Seg Neutrophils % Seg Neuts % (Manual) 94.0 H Lymphocytes % (Manual) 4.0 L Seg Neutrophils # Seg Neutrophils # Man 22.2 H Lymphocytes # (Manual) 0.9 L PT INR D-Dimer ABG pH ABG pO2 ABG HCO3 ABG O2 Saturation ABG Base Excess ABG Hemoglobin Oxyhemoglobin Sodium Potassium Chloride 107.1 H Carbon Dioxide BUN 25 H Creatinine 0.4 L Glucose 122 H POC Glucose 118 H Lactic Acid Calcium Magnesium Iron TIBC Ferritin AST ALT Lactate Dehydrogenase Troponin T C-Reactive Protein Total Protein Albumin Cholesterol LDL Cholesterol Direct HDL Cholesterol Urine WBC (Auto) Vancomycin Trough Coronavirus (PCR) Crossmatch 07/12/19 07/12/19 07/12/19 08:49 11:36 18:15 WBC RBC Hgb Hct MCV MCH MCHC RDW Plt Count Lymph % (Auto) [place] % (Auto) Lymph # [place] # Baso # Seg Neutrophils % Seg Neuts % (Manual) Lymphocytes % (Manual) Seg Neutrophils # Seg Neutrophils # Man Lymphocytes # (Manual) PT INR D-Dimer ABG pH ABG pO2 ABG HCO3 ABG O2 Saturation ABG Base Excess ABG Hemoglobin Oxyhemoglobin Sodium Potassium Chloride Carbon Dioxide BUN Creatinine Glucose POC Glucose 124 H 110 H Lactic Acid Calcium Magnesium Iron TIBC Ferritin AST ALT Lactate Dehydrogenase Troponin T C-Reactive Protein Total Protein Albumin Cholesterol LDL Cholesterol Direct HDL Cholesterol Urine WBC (Auto) Vancomycin Trough Coronavirus (PCR) Crossmatch See Detail 07/12/19 07/13/19 07/13/19 23:16 05:26 06:50 WBC 23.9 H RBC 2.58 L Hgb 6.9 L Hct 21.5 L MCV 83 L MCH 27 L MCHC RDW 19.0 H Plt Count Lymph % (Auto) [place] % (Auto) Lymph # [place] # Baso # Seg Neutrophils % Seg Neuts % (Manual) 96.0 H Lymphocytes % (Manual) 3.0 L Seg Neutrophils # Seg Neutrophils # Man 22.9 H Lymphocytes # (Manual) 0.7 L PT INR D-Dimer ABG pH ABG pO2 ABG HCO3 ABG O2 Saturation ABG Base Excess ABG Hemoglobin Oxyhemoglobin Sodium Potassium Chloride Carbon Dioxide BUN Creatinine Glucose POC Glucose 108 H 126 H Lactic Acid Calcium Magnesium Iron TIBC Ferritin AST ALT Lactate Dehydrogenase Troponin T C-Reactive Protein Total Protein Albumin Cholesterol LDL Cholesterol Direct HDL Cholesterol Urine WBC (Auto) Vancomycin Trough Coronavirus (PCR) Crossmatch 07/13/19 07/13/19 07/13/19 06:50 12:38 18:05 WBC RBC Hgb Hct MCV MCH MCHC RDW Plt Count Lymph % (Auto) [place] % (Auto) Lymph # [place] # Baso # Seg Neutrophils % Seg Neuts % (Manual) Lymphocytes % (Manual) Seg Neutrophils # Seg Neutrophils # Man Lymphocytes # (Manual) PT INR D-Dimer ABG pH ABG pO2 ABG HCO3 ABG O2 Saturation ABG Base Excess ABG Hemoglobin Oxyhemoglobin Sodium Potassium Chloride Carbon Dioxide BUN 33 H Creatinine 0.5 L Glucose 136 H POC Glucose 164 H 145 H Lactic Acid Calcium Magnesium Iron TIBC Ferritin AST ALT Lactate Dehydrogenase Troponin T C-Reactive Protein Total Protein Albumin Cholesterol LDL Cholesterol Direct HDL Cholesterol Urine WBC (Auto) Vancomycin Trough Coronavirus (PCR) Crossmatch 07/13/19 07/14/19 07/14/19 18:30 00:21 04:40 WBC 22.9 H RBC 2.45 L Hgb 6.6 L Hct 21.1 L MCV MCH 27 L MCHC 31 L RDW 19.2 H Plt Count Lymph % (Auto) [place] % (Auto) Lymph # [place] # Baso # Seg Neutrophils % Seg Neuts % (Manual) 91.0 H Lymphocytes % (Manual) 7.0 L Seg Neutrophils # Seg Neutrophils # Man 20.8 H Lymphocytes # (Manual) PT INR D-Dimer ABG pH ABG pO2 58.1 L ABG HCO3 ABG O2 Saturation 88.7 L ABG Base Excess ABG Hemoglobin 7.8 L Oxyhemoglobin 86.8 L Sodium Potassium Chloride Carbon Dioxide BUN Creatinine Glucose POC Glucose 118 H Lactic Acid Calcium Magnesium Iron TIBC Ferritin AST ALT Lactate Dehydrogenase Troponin T C-Reactive Protein Total Protein Albumin Cholesterol LDL Cholesterol Direct HDL Cholesterol Urine WBC (Auto) Vancomycin Trough Coronavirus (PCR) Crossmatch 07/14/19 07/14/19 07/14/19 04:40 05:38 05:45 WBC RBC Hgb Hct MCV MCH MCHC RDW Plt Count Lymph % (Auto) [place] % (Auto) Lymph # [place] # Baso # Seg Neutrophils % Seg Neuts % (Manual) Lymphocytes % (Manual) Seg Neutrophils # Seg Neutrophils # Man Lymphocytes # (Manual) PT INR D-Dimer ABG pH 7.230 L ABG pO2 72.1 L ABG HCO3 ABG O2 Saturation 89.3 L ABG Base Excess -2.7 L ABG Hemoglobin 6.7 L Oxyhemoglobin 87.7 L Sodium Potassium Chloride 107.4 H Carbon Dioxide BUN 45 H Creatinine Glucose 101 H POC Glucose 154 H Lactic Acid Calcium Magnesium Iron TIBC Ferritin AST ALT Lactate Dehydrogenase Troponin T C-Reactive Protein Total Protein Albumin Cholesterol LDL Cholesterol Direct HDL Cholesterol Urine WBC (Auto) Vancomycin Trough Coronavirus (PCR) Crossmatch 07/14/19 07/14/19 07/14/19 12:25 18:20 19:01 WBC 22.4 H RBC 2.70 L Hgb 7.5 L Hct 23.3 L MCV MCH MCHC RDW 19.5 H Plt Count Lymph % (Auto) [place] % (Auto) Lymph # [place] # Baso # Seg Neutrophils % Seg Neuts % (Manual) Lymphocytes % (Manual) Seg Neutrophils # Seg Neutrophils # Man Lymphocytes # (Manual) PT INR D-Dimer ABG pH ABG pO2 ABG HCO3 ABG O2 Saturation ABG Base Excess ABG Hemoglobin Oxyhemoglobin Sodium Potassium Chloride Carbon Dioxide BUN Creatinine Glucose POC Glucose 136 H 131 H Lactic Acid Calcium Magnesium Iron TIBC Ferritin AST ALT Lactate Dehydrogenase Troponin T C-Reactive Protein Total Protein Albumin Cholesterol LDL Cholesterol Direct HDL Cholesterol Urine WBC (Auto) Vancomycin Trough Coronavirus (PCR) Crossmatch 07/15/19 07/15/19 07/15/19 00:17 04:35 05:18 WBC 20.6 H RBC 2.41 L Hgb 6.8 L Hct 20.7 L MCV MCH MCHC RDW 20.2 H Plt Count Lymph % (Auto) [place] % (Auto) Lymph # [place] # Baso # Seg Neutrophils % Seg Neuts % (Manual) 92.0 H Lymphocytes % (Manual) 5.0 L Seg Neutrophils # Seg Neutrophils # Man 19.0 H Lymphocytes # (Manual) 1.0 L PT INR D-Dimer ABG pH 7.342 L ABG pO2 ABG HCO3 ABG O2 Saturation ABG Base Excess -3.1 L ABG Hemoglobin 7.2 L Oxyhemoglobin 94.9 L Sodium Potassium Chloride Carbon Dioxide BUN Creatinine Glucose POC Glucose 116 H Lactic Acid Calcium Magnesium Iron TIBC Ferritin AST ALT Lactate Dehydrogenase Troponin T C-Reactive Protein Total Protein Albumin Cholesterol LDL Cholesterol Direct HDL Cholesterol Urine WBC (Auto) Vancomycin Trough Coronavirus (PCR) Crossmatch 07/15/19 07/15/19 07/15/19 05:18 05:57 11:28 WBC RBC Hgb Hct MCV MCH MCHC RDW Plt Count Lymph % (Auto) [place] % (Auto) Lymph # [place] # Baso # Seg Neutrophils % Seg Neuts % (Manual) Lymphocytes % (Manual) Seg Neutrophils # Seg Neutrophils # Man Lymphocytes # (Manual) PT INR D-Dimer ABG pH ABG pO2 ABG HCO3 ABG O2 Saturation ABG Base Excess ABG Hemoglobin Oxyhemoglobin Sodium Potassium Chloride Carbon Dioxide 20 L BUN 59 H Creatinine Glucose 140 H POC Glucose 139 H 117 H Lactic Acid Calcium Magnesium Iron TIBC Ferritin AST ALT Lactate Dehydrogenase Troponin T C-Reactive Protein Total Protein Albumin Cholesterol LDL Cholesterol Direct HDL Cholesterol Urine WBC (Auto) Vancomycin Trough Coronavirus (PCR) Crossmatch 07/15/19 07/16/19 07/16/19 18:13 00:06 03:43 WBC RBC Hgb Hct MCV MCH MCHC RDW Plt Count Lymph % (Auto) [place] % (Auto) Lymph # [place] # Baso # Seg Neutrophils % Seg Neuts % (Manual) Lymphocytes % (Manual) Seg Neutrophils # Seg Neutrophils # Man Lymphocytes # (Manual) PT INR D-Dimer ABG pH 7.344 L ABG pO2 68.6 L ABG HCO3 ABG O2 Saturation ABG Base Excess -3.5 L ABG Hemoglobin 6.1 L Oxyhemoglobin 93.3 L Sodium Potassium Chloride Carbon Dioxide BUN Creatinine Glucose POC Glucose 114 H 119 H Lactic Acid Calcium Magnesium Iron TIBC Ferritin AST ALT Lactate Dehydrogenase Troponin T C-Reactive Protein Total Protein Albumin Cholesterol LDL Cholesterol Direct HDL Cholesterol Urine WBC (Auto) Vancomycin Trough Coronavirus (PCR) Crossmatch 07/16/19 07/16/19 07/16/19 04:41 04:41 12:09 WBC 19.6 H RBC 2.81 L Hgb 7.7 L Hct 24.0 L MCV MCH 27 L MCHC RDW 19.4 H Plt Count 514 H Lymph % (Auto) 6.7 L [place] % (Auto) Lymph # [place] # 1.0 H Baso # Seg Neutrophils % 87.0 H Seg Neuts % (Manual) Lymphocytes % (Manual) Seg Neutrophils # 17.0 H Seg Neutrophils # Man Lymphocytes # (Manual) PT INR D-Dimer ABG pH ABG pO2 ABG HCO3 ABG O2 Saturation ABG Base Excess ABG Hemoglobin Oxyhemoglobin Sodium Potassium 5.9 H Chloride Carbon Dioxide 21 L BUN 73 H Creatinine 2.0 H Glucose POC Glucose 141 H Lactic Acid Calcium Magnesium Iron TIBC Ferritin AST ALT Lactate Dehydrogenase Troponin T C-Reactive Protein Total Protein Albumin Cholesterol LDL Cholesterol Direct HDL Cholesterol Urine WBC (Auto) Vancomycin Trough Coronavirus (PCR) Crossmatch 07/16/19 07/16/19 07/17/19 16:19 17:45 00:16 WBC RBC Hgb Hct MCV MCH MCHC RDW Plt Count Lymph % (Auto) [place] % (Auto) Lymph # [place] # Baso # Seg Neutrophils % Seg Neuts % (Manual) Lymphocytes % (Manual) Seg Neutrophils # Seg Neutrophils # Man Lymphocytes # (Manual) PT INR D-Dimer ABG pH ABG pO2 ABG HCO3 ABG O2 Saturation ABG Base Excess ABG Hemoglobin Oxyhemoglobin Sodium Potassium 5.1 H Chloride Carbon Dioxide 20 L BUN 72 H Creatinine 1.7 H Glucose 128 H POC Glucose 181 H 164 H Lactic Acid Calcium Magnesium Iron TIBC Ferritin AST ALT Lactate Dehydrogenase Troponin T C-Reactive Protein Total Protein Albumin Cholesterol LDL Cholesterol Direct HDL Cholesterol Urine WBC (Auto) Vancomycin Trough Coronavirus (PCR) Crossmatch 07/17/19 07/17/19 07/17/19 04:20 04:39 04:39 WBC 16.1 H RBC 2.92 L Hgb 8.0 L Hct 25.5 L MCV MCH MCHC 31 L RDW 19.7 H Plt Count 564 H Lymph % (Auto) 3.6 L [place] % (Auto) 7.4 H Lymph # 0.6 L [place] # 1.2 H Baso # Seg Neutrophils % 87.5 H Seg Neuts % (Manual) Lymphocytes % (Manual) Seg Neutrophils # 14.1 H Seg Neutrophils # Man Lymphocytes # (Manual) PT INR D-Dimer ABG pH 7.231 L ABG pO2 95.3 H ABG HCO3 ABG O2 Saturation ABG Base Excess -5.0 L ABG Hemoglobin 7.9 L Oxyhemoglobin 94.8 L Sodium Potassium Chloride 107.8 H Carbon Dioxide 21 L BUN 68 H Creatinine Glucose POC Glucose Lactic Acid Calcium Magnesium Iron TIBC Ferritin AST ALT Lactate Dehydrogenase Troponin T C-Reactive Protein Total Protein Albumin Cholesterol LDL Cholesterol Direct HDL Cholesterol Urine WBC (Auto) Vancomycin Trough Coronavirus (PCR) Crossmatch 07/17/19 07/17/19 07/17/19 05:28 12:11 18:48 WBC RBC Hgb Hct MCV MCH MCHC RDW Plt Count Lymph % (Auto) [place] % (Auto) Lymph # [place] # Baso # Seg Neutrophils % Seg Neuts % (Manual) Lymphocytes % (Manual) Seg Neutrophils # Seg Neutrophils # Man Lymphocytes # (Manual) PT INR D-Dimer ABG pH ABG pO2 ABG HCO3 ABG O2 Saturation ABG Base Excess ABG Hemoglobin Oxyhemoglobin Sodium Potassium Chloride Carbon Dioxide BUN Creatinine Glucose POC Glucose 121 H 125 H 174 H Lactic Acid Calcium Magnesium Iron TIBC Ferritin AST ALT Lactate Dehydrogenase Troponin T C-Reactive Protein Total Protein Albumin Cholesterol LDL Cholesterol Direct HDL Cholesterol Urine WBC (Auto) Vancomycin Trough Coronavirus (PCR) Crossmatch 07/17/19 07/17/19 07/18/19 19:55 23:57 02:30 WBC RBC Hgb Hct MCV MCH MCHC RDW Plt Count Lymph % (Auto) [place] % (Auto) Lymph # [place] # Baso # Seg Neutrophils % Seg Neuts % (Manual) Lymphocytes % (Manual) Seg Neutrophils # Seg Neutrophils # Man Lymphocytes # (Manual) PT INR D-Dimer ABG pH 7.344 L 7.294 L ABG pO2 78.5 L 119.2 H ABG HCO3 ABG O2 Saturation ABG Base Excess -3.3 L -2.6 L ABG Hemoglobin 8.6 L 8.1 L Oxyhemoglobin 94.8 L Sodium Potassium Chloride Carbon Dioxide BUN Creatinine Glucose POC Glucose 148 H Lactic Acid Calcium Magnesium Iron TIBC Ferritin AST ALT Lactate Dehydrogenase Troponin T C-Reactive Protein Total Protein Albumin Cholesterol LDL Cholesterol Direct HDL Cholesterol Urine WBC (Auto) Vancomycin Trough Coronavirus (PCR) Crossmatch 07/18/19 07/18/19 07/18/19 04:49 05:22 05:22 WBC 15.9 H RBC 3.00 L Hgb 8.1 L Hct 26.0 L MCV MCH 27 L MCHC 31 L RDW 19.4 H Plt Count 733 H Lymph % (Auto) 6.3 L [place] % (Auto) 7.4 H Lymph # 1.0 L [place] # 1.2 H Baso # 0.2 H Seg Neutrophils % 83.8 H Seg Neuts % (Manual) Lymphocytes % (Manual) Seg Neutrophils # 13.3 H Seg Neutrophils # Man Lymphocytes # (Manual) PT INR D-Dimer ABG pH ABG pO2 ABG HCO3 ABG O2 Saturation ABG Base Excess ABG Hemoglobin Oxyhemoglobin Sodium Potassium Chloride 110.6 H Carbon Dioxide BUN 61 H Creatinine Glucose 109 H POC Glucose 116 H Lactic Acid Calcium Magnesium Iron TIBC Ferritin AST ALT Lactate Dehydrogenase Troponin T C-Reactive Protein Total Protein Albumin Cholesterol LDL Cholesterol Direct HDL Cholesterol Urine WBC (Auto) Vancomycin Trough Coronavirus (PCR) Crossmatch 07/18/19 07/18/19 07/18/19 12:23 18:06 22:20 WBC RBC Hgb Hct MCV MCH MCHC RDW Plt Count Lymph % (Auto) [place] % (Auto) Lymph # [place] # Baso # Seg Neutrophils % Seg Neuts % (Manual) Lymphocytes % (Manual) Seg Neutrophils # Seg Neutrophils # Man Lymphocytes # (Manual) PT INR D-Dimer ABG pH 7.338 L ABG pO2 135.1 H ABG HCO3 ABG O2 Saturation ABG Base Excess ABG Hemoglobin 9.2 L Oxyhemoglobin Sodium Potassium Chloride Carbon Dioxide BUN Creatinine Glucose POC Glucose 114 H 113 H Lactic Acid Calcium Magnesium Iron TIBC Ferritin AST ALT Lactate Dehydrogenase Troponin T C-Reactive Protein Total Protein Albumin Cholesterol LDL Cholesterol Direct HDL Cholesterol Urine WBC (Auto) Vancomycin Trough Coronavirus (PCR) Crossmatch 07/18/19 07/19/19 07/19/19 23:33 03:45 05:18 WBC RBC Hgb Hct MCV MCH MCHC RDW Plt Count Lymph % (Auto) [place] % (Auto) Lymph # [place] # Baso # Seg Neutrophils % Seg Neuts % (Manual) Lymphocytes % (Manual) Seg Neutrophils # Seg Neutrophils # Man Lymphocytes # (Manual) PT INR D-Dimer ABG pH 7.342 L ABG pO2 95.0 H ABG HCO3 ABG O2 Saturation ABG Base Excess ABG Hemoglobin 8.5 L Oxyhemoglobin Sodium Potassium Chloride Carbon Dioxide BUN Creatinine Glucose POC Glucose 125 H 111 H Lactic Acid Calcium Magnesium Iron TIBC Ferritin AST ALT Lactate Dehydrogenase Troponin T C-Reactive Protein Total Protein Albumin Cholesterol LDL Cholesterol Direct HDL Cholesterol Urine WBC (Auto) Vancomycin Trough Coronavirus (PCR) Crossmatch 07/19/19 07/19/19 07/19/19 08:45 08:45 11:47 WBC 15.9 H RBC 3.31 L Hgb 9.1 L Hct 28.4 L MCV MCH 27 L MCHC RDW 19.1 H Plt Count 858 H Lymph % (Auto) 4.9 L [place] % (Auto) 8.1 H Lymph # 0.8 L [place] # 1.3 H Baso # Seg Neutrophils % 85.5 H Seg Neuts % (Manual) Lymphocytes % (Manual) Seg Neutrophils # 13.6 H Seg Neutrophils # Man Lymphocytes # (Manual) PT INR D-Dimer ABG pH ABG pO2 ABG HCO3 ABG O2 Saturation ABG Base Excess ABG Hemoglobin Oxyhemoglobin Sodium Potassium Chloride 111.6 H Carbon Dioxide BUN 50 H Creatinine 0.7 L Glucose 118 H POC Glucose 114 H Lactic Acid Calcium Magnesium Iron TIBC Ferritin AST ALT Lactate Dehydrogenase Troponin T C-Reactive Protein Total Protein Albumin Cholesterol LDL Cholesterol Direct HDL Cholesterol Urine WBC (Auto) Vancomycin Trough Coronavirus (PCR) Crossmatch 07/19/19 07/19/19 07/20/19 18:25 23:44 04:39 WBC RBC Hgb Hct MCV MCH MCHC RDW Plt Count Lymph % (Auto) [place] % (Auto) Lymph # [place] # Baso # Seg Neutrophils % Seg Neuts % (Manual) Lymphocytes % (Manual) Seg Neutrophils # Seg Neutrophils # Man Lymphocytes # (Manual) PT INR D-Dimer ABG pH ABG pO2 ABG HCO3 ABG O2 Saturation ABG Base Excess ABG Hemoglobin Oxyhemoglobin Sodium Potassium Chloride 110.3 H Carbon Dioxide BUN 44 H Creatinine 0.6 L Glucose 120 H POC Glucose 115 H 117 H Lactic Acid Calcium Magnesium Iron TIBC Ferritin AST ALT Lactate Dehydrogenase Troponin T C-Reactive Protein Total Protein Albumin Cholesterol LDL Cholesterol Direct HDL Cholesterol Urine WBC (Auto) Vancomycin Trough Coronavirus (PCR) Crossmatch 07/20/19 05:30 WBC RBC Hgb Hct MCV MCH MCHC RDW Plt Count Lymph % (Auto) [place] % (Auto) Lymph # [place] # Baso # Seg Neutrophils % Seg Neuts % (Manual) Lymphocytes % (Manual) Seg Neutrophils # Seg Neutrophils # Man Lymphocytes # (Manual) PT INR D-Dimer ABG pH ABG pO2 ABG HCO3 ABG O2 Saturation ABG Base Excess ABG Hemoglobin Oxyhemoglobin Sodium Potassium Chloride Carbon Dioxide BUN Creatinine Glucose POC Glucose 131 H Lactic Acid Calcium Magnesium Iron TIBC Ferritin AST ALT Lactate Dehydrogenase Troponin T C-Reactive Protein Total Protein Albumin Cholesterol LDL Cholesterol Direct HDL Cholesterol Urine WBC (Auto) Vancomycin Trough Coronavirus (PCR) Crossmatch Allied health notes reviewed: nursing
[2019-07-20] MEDS: SODIUM HYPOCHLORITE, DAKIN'S 1/2 STRENGTH (0.25%) 473 ML TOPICAL SOLN TP SCH ×2 (22:01→22:43)
[2019-07-21] MEDS: FOLIC ACID 1 MG TAB PO SCH (09:46)
[2019-07-21] MEDS: DOCUSATE SODIUM 100 MG/10 ML ORAL LIQD PO SCH ×2 (09:46→21:06)
[2019-07-21] MEDS: ASPIRIN 81 MG TAB CHEW PO SCH (09:46)
[2019-07-21] MEDS: FAMOTIDINE 20 MG TAB PO SCH ×2 (09:46→21:06)
[2019-07-21] MEDS: levETIRAcetam 500 MG/5 ML ORAL LIQD FEEDTUBE SCH ×2 (09:46→21:06)
[2019-07-21] MEDS: SODIUM HYPOCHLORITE, DAKIN'S 1/2 STRENGTH (0.25%) 473 ML TOPICAL SOLN TP SCH ×2 (11:00→21:21)
--- NOTE | 2019-07-21 11:02 | Progress Note ---
Assessment and Plan Assessment and plan: --COVid positive pneumonia with severe sepsis Received Plaquenil and cefepime, monitor off antibiotics ID following --Septic shock: On Levophed Persistent hypotension, titrate to systolic blood pressure more than 100 -- Acute respiratory Failure with Hypoxia Due to bilateral PNA with COVID 19 infection. On ventilatory support, unable to wean Pulmonary critical following --COPD with exacerbation Likely due to COVID-19 pneumonia Continue scheduled nebs --Anemia, Microcytic persistent s/p total 3 unit of PRBC, today Hb today 9.1 --Pressure Ulcers: POA buttocks, right lateral foot area wound and supportive care --Hyponatremia, resolved --DM type 2: Accu-Chek SCC tube feeding, insulin as needed --h/o HTN Essential, now hypotensive On Levophed --Seizure D/o/CVA/immobility/BIpolar D/o/SCZ Seizure precautions, antiepileptic medications --Severe PCM, TF supportive care, dietary following patient is DNR- Called and verified information Very poor prognosis, Recommend hospice 07/04: COVID +ve, start on plaquinil, called no answer 07/05: transfuse one unit PRBC, Hb dropped to ~6, called and updated 07/06; H&H stable, serum chemistry improved. On mechanical ventilation with high inflammatory markers. Continue Plaquenil and empiric antibiotics. ID following, prognosis remains guarded and extremely poor. 07/07: On mechanical ventilation with high inflammatory markers. Continue Plaquenil and empiric antibiotics. ID following, prognosis remains guarded and extremely poor. 07/08: Called today and verified the CODE STATUS. Patient remains DNR. He is still intubated, with poor prognosis. Continue to follow inflammatory markers. 07/09 wean off from vent as tolerated, completed empiric antibiotic and Plaquenil 07/10 wean off from vent as tolerated. poor prognosis 07/11 hb 6.7 today, transfuse one PRBC. wean off from vent as tolerated. poor prognosis 07/12 remains critically on vent. Hb 6.9 07/13 Hb dropped to 6.6, transfuse 1 unit of PRBC, remains on vent critically ill Hypotensive, fluid bolus, if no improvement start Levophed 07/14; remains anemic with hemoglobin of 6.8, received total 3 units of PRBC Additional 1 unit of PRBC today, stool for occult blood to rule out GI causes Started back on Levophed due to hypotension 07/15; patient remains critically ill, hypotensive on Levophed 07/16: Today remains intubated on vent, persistent hypotension on Levophed 07/17; clinically no change, pressor dependent[on Levophed] DNR status 07/18: Patient remains hypotensive requiring Levophed, intubated on vent Unable to wean, critically ill. DNR 07/20/2019 Patient remains hypotensive requiring Levophed, intubated on vent. Patient currently with AC mode ventilation, rate 20, tidal volume 500, FiO2 40% and PEEP 6. Patient is a poor prognosis and apparently was on hospice recently. 07/21/2019. Patient with PEG tube that was clogged yesterday. surgery evaluated the patient and noted Very long PEG tubing with thick material inside. The ent celsa tube was stripped and a large amount of formed tube feed was expressed. The tube was then flushed with sprite and flushed easily. Tube clamped. Patient currently with AC mode ventilation, rate 20, tidal volume 500, FiO2 40% and PEEP 6. Patient is a poor prognosis and apparently was on hospice recently. The high probability of a clinically significant, sudden or life threatening deterioration of the [respiratory, CVS, INBOUND CALL CENTER REPRESENTATIVE] system(s) required my full and direct attention, intervention and personal management. The aggregate critical care time was [31] minutes. This time is in addition to time spent performing reported procedures but includes the following: [x] Data Review and interpretation [x] Patient assessment and monitoring of vital signs [x] Documentation [x] Medication orders and management History Interval history: 69-year-old male patient with PMH of CVA with RHP, HTN, DM2, SCZ, Dementia, Alcohol use D/o, Seizure D/O, presents to the emergency department via EMS from home with progressive SOB and impending espiratory failure with an unresponsive . PT was intubated was admitted through emergency room to ICU treated for sepsis, b/l PNA, acute respiratory failure received antibiotics. Patient was tested positive for COVID19. Evaluated by ID , received antibiotics Plaquenil, and inflammatory markers were checked and followed. Patient was hypotensive requiring Levophed, continues to be hypotensive currently on Levophed, unable to wean remains intubated on ventilatory support, critically ill, DNR status however family wants full treatment. Hospitalist Physical - Constitutional Vitals: Temp Pulse Resp BP Pulse Ox 95.9 F L 116 H 22 114/74 97 07/21/19 10:00 07/21/19 09:30 07/21/19 09:30 07/21/19 09:30 07/21/19 09:30 General appearance: Present: no acute distress, well-nourished, other (Orally intubated on vent) - EENT Eyes: Present: PERRL, EOM intact ENT: hearing intact, clear oral mucosa, dentition normal - Neck Neck: Present: supple, normal ROM - Respiratory Respiratory effort: normal Respiratory: bilateral: CTA - Cardiovascular Rhythm: regular Heart Sounds: Present: S1 & S2. Absent: gallop, rub - Extremities Extremities: no ischemia, No edema, Full ROM - Abdominal General gastrointestinal: soft, non-tender, non-distended, normal bowel sounds - Integumentary Integumentary: Present: clear, warm, dry - Neurologic Neurologic: CNII-XII intact, moves all extremities Results - Labs CBC & Chem 7: 07/19/19 08:45 07/20/19 04:39 Labs: Laboratory Last Values WBC 15.9 K/mm3 (4.5-11.0) H 07/19/19 08:45 RBC 3.31 M/mm3 (3.65-5.03) L 07/19/19 08:45 Hgb 9.1 gm/dl (11.8-15.2) L 07/19/19 08:45 Hct 28.4 % (35.5-45.6) L 07/19/19 08:45 MCV 86 fl (84-94) 07/19/19 08:45 MCH 27 pg (28-32) L 07/19/19 08:45 MCHC 32 % (32-34) 07/19/19 08:45 RDW 19.1 % (13.2-15.2) H 07/19/19 08:45 Plt Count 858 K/mm3 (140-440) H 07/19/19 08:45 Lymph % (Auto) 4.9 % (13.4-35.0) L 07/19/19 08:45 [place] % (Auto) 8.1 % (0.0-7.3) H 07/19/19 08:45 Eos % (Auto) 1.0 % (0.0-4.3) 07/19/19 08:45 Baso % (Auto) 0.5 % (0.0-1.8) 07/19/19 08:45 Lymph # 0.8 K/mm3 (1.2-5.4) L 07/19/19 08:45 [place] # 1.3 K/mm3 (0.0-0.8) H 07/19/19 08:45 Eos # 0.2 K/mm3 (0.0-0.4) 07/19/19 08:45 Baso # 0.1 K/mm3 (0.0-0.1) 07/19/19 08:45 Add Manual Diff Complete 07/15/19 05:18 Total Counted 100 07/15/19 05:18 Seg Neutrophils % 85.5 % (40.0-70.0) H 07/19/19 08:45 Seg Neuts % (Manual) 92.0 % (40.0-70.0) H 07/15/19 05:18 Band Neutrophils % 0 % 07/15/19 05:18 Lymphocytes % (Manual) 5.0 % (13.4-35.0) L 07/15/19 05:18 Reactive Lymphs % (Man) 0 % 07/15/19 05:18 Monocytes % (Manual) 3.0 % (0.0-7.3) 07/15/19 05:18 Eosinophils % (Manual) 0 % (0.0-4.3) 07/15/19 05:18 Basophils % (Manual) 0 % (0.0-1.8) 07/15/19 05:18 Metamyelocytes % 0 % 07/15/19 05:18 Myelocytes % 0 % 07/15/19 05:18 Promyelocytes % 0 % 07/15/19 05:18 Blast Cells % 0 % 07/15/19 05:18 Nucleated RBC % Not Reportable 07/15/19 05:18 Seg Neutrophils # 13.6 K/mm3 (1.8-7.7) H 07/19/19 08:45 Seg Neutrophils # Man 19.0 K/mm3 (1.8-7.7) H 07/15/19 05:18 Band Neutrophils # 0.0 K/mm3 04/26/20 05:18 Lymphocytes # (Manual) 1.0 K/mm3 (1.2-5.4) L 07/15/19 05:18 Abs React Lymphs (Man) 0.0 K/mm3 07/15/19 05:18 Monocytes # (Manual) 0.6 K/mm3 (0.0-0.8) 07/15/19 05:18 Eosinophils # (Manual) 0.0 K/mm3 (0.0-0.4) 07/15/19 05:18 Basophils # (Manual) 0.0 K/mm3 (0.0-0.1) 07/15/19 05:18 Metamyelocytes # 0.0 K/mm3 07/15/19 05:18 Myelocytes # 0.0 K/mm3 07/15/19 05:18 Promyelocytes # 0.0 K/mm3 07/15/19 05:18 Blast Cells # 0.0 K/mm3 07/15/19 05:18 WBC Morphology Not Reportable 07/15/19 05:18 Hypersegmented Neuts Not Reportable 07/15/19 05:18 Hyposegmented Neuts Not Reportable 07/15/19 05:18 Hypogranular Neuts Not Reportable 07/15/19 05:18 Smudge Cells Not Reportable 07/15/19 05:18 Toxic Granulation Not Reportable 07/15/19 05:18 Toxic Vacuolation Not Reportable 07/15/19 05:18 Dohle Bodies Not Reportable 07/15/19 05:18 Pelger-Huet Anomaly Not Reportable 07/15/19 05:18 Mendy Rods Not Reportable 07/15/19 05:18 Platelet Estimate Consistent w auto 07/15/19 05:18 Clumped Platelets Not Reportable 07/15/19 05:18 Plt Clumps, EDTA Not Reportable 07/15/19 05:18 Large Platelets Not Reportable 07/15/19 05:18 Giant Platelets Not Reportable 07/15/19 05:18 Platelet Satelliting Not Reportable 07/15/19 05:18 Plt Morphology Comment Not Reportable 07/15/19 05:18 RBC Morphology Not Reportable 07/15/19 05:18 Dimorphic RBCs Not Reportable 07/15/19 05:18 Polychromasia Not Reportable 07/15/19 05:18 Hypochromasia 2+ 07/15/19 05:18 Poikilocytosis Not Reportable 07/15/19 05:18 Anisocytosis 1+ 07/15/19 05:18 Microcytosis Few 07/15/19 05:18 Macrocytosis Not Reportable 07/15/19 05:18 Spherocytes Few 07/15/19 05:18 Pappenheimer Bodies Not Reportable 07/15/19 05:18 Sickle Cells Not Reportable 07/15/19 05:18 Target Cells Not Reportable 07/15/19 05:18 Tear Drop Cells Not Reportable 07/15/19 05:18 Ovalocytes Rare 07/15/19 05:18 Helmet Cells Not Reportable 07/15/19 05:18 [place] Bodies Not Reportable 07/15/19 05:18 [place] Rings Not Reportable 07/15/19 05:18 Fritch Cells Not Reportable 07/15/19 05:18 Bite Cells Not Reportable 07/15/19 05:18 Crenated Cell Not Reportable 07/15/19 05:18 Elliptocytes Not Reportable 07/15/19 05:18 Acanthocytes (Spur) Not Reportable 07/15/19 05:18 Rouleaux Not Reportable 07/15/19 05:18 Hemoglobin C Crystals Not Reportable 07/15/19 05:18 Schistocytes Few 07/15/19 05:18 Malaria parasites Not Reportable 07/15/19 05:18 Jeevan Bodies Not Reportable 07/15/19 05:18 Hem Pathologist Commnt No 07/15/19 05:18 PT 16.0 Sec. (12.2-14.9) H 07/03/19 22:20 INR 1.26 (0.87-1.13) H 07/03/19 22:20 D-Dimer 1142.18 ng/mlDDU (0-234) H 07/08/19 00:45 ABG pH 7.342 pH Units (7.350-7.450) L 07/19/19 03:45 ABG pCO2 45.2 mm Hg 07/19/19 03:45 ABG pO2 95.0 mm Hg (80.0-90.0) H 07/19/19 03:45 ABG HCO3 24.0 mmol/L (20.0-26.0) 07/19/19 03:45 ABG O2 Saturation 97.1 % (95.0-99.0) 07/19/19 03:45 ABG O2 Content 11.6 (0.0-44) 07/19/19 03:45 ABG Base Excess -1.8 mmol/L (-2.0-3.0) 07/19/19 03:45 ABG Hemoglobin 8.5 gm/dl (14.0-18.0) L 07/19/19 03:45 ABG Carboxyhemoglobin 1.2 % (0.0-5.0) 07/19/19 03:45 ABG Methemoglobin 0.4 % (0.0-1.5) 07/19/19 03:45 Oxyhemoglobin 95.5 % (95.0-99.0) 07/19/19 03:45 FiO2 50 % 07/19/19 03:45 Sodium 144 mmol/L (137-145) 07/20/19 04:39 Potassium 3.6 mmol/L (3.6-5.0) 07/20/19 04:39 Chloride 110.3 mmol/L (98-107) H 07/20/19 04:39 Carbon Dioxide 25 mmol/L (22-30) 07/20/19 04:39 Anion Gap 12 mmol/L 07/20/19 04:39 BUN 44 mg/dL (9-20) H 07/20/19 04:39 Creatinine 0.6 mg/dL (0.8-1.5) L 07/20/19 04:39 Estimated GFR > 60 ml/min 07/20/19 04:39 BUN/Creatinine Ratio 73 % 07/20/19 04:39 Glucose 120 mg/dL (75-100) H 07/20/19 04:39 POC Glucose 105 (70-105) 07/21/19 06:10 Osmolality 268 Mosm/kg 07/05/19 04:00 Lactic Acid 3.30 mmol/L (0.7-2.0) H* 07/04/19 07:05 Uric Acid 7.2 mg/dL (3.5-7.6) 07/05/19 04:00 Calcium 9.5 mg/dL (8.4-10.2) 07/20/19 04:39 Phosphorus 3.60 mg/dL (2.5-4.5) 07/05/19 04:00 Magnesium 1.80 mg/dL (1.7-2.3) 07/11/19 05:14 Iron 9 ug/dL (49-181) L 07/04/19 07:05 TIBC 97 mcg/dL (250-450) L 07/04/19 07:05 Ferritin 839.0 ng/mL (13.0-400.0) H 07/08/19 00:45 Total Bilirubin 0.20 mg/dL (0.1-1.2) 07/04/19 07:05 AST 73 units/L (5-40) H 07/04/19 07:05 ALT 91 units/L (7-56) H 07/04/19 07:05 Alkaline Phosphatase 114 units/L (35-129) 07/04/19 07:05 Ammonia 35.0 umol/L (25-60) 07/03/19 23:58 Lactate Dehydrogenase 277 units/L (91-180) H 07/10/19 04:00 Troponin T 0.013 ng/mL (0.00-0.029) 07/04/19 07:05 C-Reactive Protein 15.10 mg/dL (0.00-1.30) H 07/10/19 04:00 Total Protein 5.5 g/dL (6.3-8.2) L 07/04/19 07:05 Albumin 2.0 g/dL (3.9-5) L 07/04/19 07:05 Albumin/Globulin Ratio 0.6 % 07/04/19 07:05 Triglycerides 33 mg/dL (2-149) 07/03/19 19:57 Cholesterol 47 mg/dL (50-199) L 07/03/19 19:57 LDL Cholesterol Direct 25 mg/dL (50-130) L 07/03/19 19:57 HDL Cholesterol 20 mg/dL (40-59) L 07/03/19:57 Cholesterol/HDL Ratio 2.35 % 07/03/19 19:57 Procalcitonin 1.25 ng/mL (<0.15) 07/10/19 04:00 TSH 2.170 mlU/mL (0.270-4.200) 07/03/19 22:20 Total Cortisol 28.0 mcg/dL () 07/05/19 10:11 Urine Color Naima (Yellow) 07/03/19 21:13 Urine Turbidity Cloudy (Clear) 07/03/19 21:13 Urine pH 5.0 (5.0-7.0) 07/03/19 21:13 Ur Specific [place] 1.016 (1.003-1.030) 07/03/19 21:13 Urine Protein 30 mg/dl mg/dL (Negative) 07/03/19 21:13 Urine Glucose (UA) Neg mg/dL (Negative) 07/03/19 21:13 Urine Ketones Neg mg/dL (Negative) 07/03/19 21:13 Urine Blood Neg (Negative) 07/03/19 21:13 Urine Nitrite Neg (Negative) 07/03/19 21:13 Urine Bilirubin Neg (Negative) 07/03/19 21:13 Urine Urobilinogen 2.0 mg/dL (<2.0) 07/03/19 21:13 Ur Leukocyte Esterase Neg (Negative) 07/03/19 21:13 Urine WBC (Auto) 12.0 /HPF (0.0-6.0) H 07/03/19 21:13 Urine RBC (Auto) 6.0 /HPF (0.0-6.0) 07/03/19 21:13 U Epithel Cells (Auto) 1.0 /HPF (0-13.0) 07/03/19 21:13 Urine Bacteria (Auto) 1+ /HPF (Negative) 07/03/19 21:13 Urine WBC Clumps Few /HPF 07/03/19 21:13 Urine Mucus Few /HPF 07/03/19 21:13 Urine Osmolality 293 Mosm/kg 07/05/19 08:15 Vancomycin Trough 23.2 ug/mL (5.0-20.0) H 07/05/19 17:54 Urine Opiates Screen Presumptive negative 07/03/19 21:13 Urine Methadone Screen Presumptive negative 07/03/19 21:13 Ur Barbiturates Screen Presumptive negative 07/03/19 21:13 Ur Phencyclidine Scrn Presumptive negative 07/03/19 21:13 Ur Amphetamines Screen Presumptive negative 07/03/19 21:13 U Benzodiazepines Scrn Presumptive negative 07/03/19 21:13 Urine Cocaine Screen Presumptive negative 07/03/19 21:13 U Marijuana (THC) Screen Presumptive negative 07/03/19 21:13 Drugs of Abuse Note Disclamer 07/03/19 21:13 Plasma/Serum Alcohol < 0.01 % (0-0.07) 07/03/19 23:58 Coronavirus (PCR) Positive (Negative) A 07/04/19 10:09 Blood Type B POSITIVE 07/12/19 08:49 Antibody Screen Negative 07/12/19 08:49 Crossmatch See Detail 07/12/19 08:49 Microbiology: Microbiology 07/03/19 21:13 Urine,Clean Catch Urine Culture - Final NO GROWTH AFTER 48 HOURS Wright/IV: Voiding Method Indwelling Catheter IV Catheter Type [Left Upper Mid-line arm] IV Catheter Type [Right INT / Saline Lock Forearm] IV Catheter Type [Right Hand] INT / Saline Lock IV Catheter Type [Right CVL Femoral] IV Catheter Type [Left INT / Saline Lock External Jugular] Active Medications - Current Medications Current Medications: Generic Name Dose Route Start Last Admin Trade Name Freq PRN Reason Stop Dose Admin Acetaminophen 650 mg 07/04/19 04:24 Tylenol MO Q6H PRN Pain MILD(1-3)/Fever >100.5/MURO Acetaminophen 650 mg 07/10/19 04:00 07/15/19 20:35 Tylenol PO 650 mg Q6HR PRN Administration Pain, Mild (1-3) FEVER Lipase/Protease/Amylase 1 each 07/04/19 10:04 07/20/19 06:15 Pancrewhitley [place] 10,500 Unit FEEDTUBE 1 each PRN PRN Administration For Clogged Feeding Tube Aspirin 81 mg 07/05/19 10:00 07/21/19 09:46 Baby Aspirin PO 81 mg QDAY TAMMIE Administration Dextrose 50 ml 07/04/19 06:54 D50w (25gm) Syringe IV Q30MIN PRN Hypoglycemia Protocol Docusate Sodium 100 mg 07/10/19 10:00 07/21/19 09:46 Colace PO 100 mg BID TAMMIE Administration Famotidine 20 mg 07/17/19 10:00 07/21/19 09:46 Pepcid PO 20 mg BID TAMMIE Administration Folic Acid 1 mg 07/05/19 10:00 07/21/19 09:46 Folvite PO 1 mg QDAY TAMMIE Administration Hydrophilic Ointment 1 applic 07/03/19 19:56 07/05/19 17:42 Vaseline Lip Therapy TP 1 applic Q2HR PRN Administration Dry Lips Norepinephrine 4 mg in 250 mls @ 7.5 mls/hr 07/03/19 23:00 07/20/19 01:00 Levophed Drip 4 Mg/Ns 250 Ml IV Infused TITR TAMMIE Titration Protocol 2 MCG/MIN Insulin Human Lispro 0 unit 07/07/19 12:00 07/20/19 22:03 Humalog SUB-Q Not Given Q6HR [facility] Protocol Levetiracetam 750 mg 07/06/19 11:00 07/21/19 09:46 Keppra FEEDTUBE 750 mg Q12HR TAMMIE Administration Metoprolol Tartrate 5 mg 07/12/19 15:08 07/12/19 15:30 Metoprolol IV 5 mg Q6HR PRN Administration Tachyarrhythmias Multi-Ingred Cream/Lotion/Oil/Oint 1 applic 07/03/19 19:56 07/05/19 13:19 Artificial Tears Ophth Oint OU 1 applic Q4HR PRN Administration Dry Eye(s) Naloxone HCl 0.1 mg 07/04/19 04:24 Naloxone IV Q2MIN PRN Res Rate </= 8 or 02 SAT < 92% Oxycodone/Acetaminophen 1 tab 07/19/19 14:17 Percocet 5/325 PO Q4H PRN Pain, Moderate (4-6) Scopolamine 1 each 07/10/19 11:00 07/19/19 12:04 Transderm-Scop TD 1 each Q3D TAMMIE Administration Simple Syrup 15 ml 07/04/19 10:04 07/10/19 21:56 Simple Syrup FEEDTUBE 15 ml PRN PRN Administration Hypoglycemia Simple Syrup 30 ml 07/04/19 10:04 Simple Syrup FEEDTUBE PRN PRN Hypoglycemia Sodium Bicarbonate 325 mg 07/04/19 10:04 07/20/19 10:20 Sodium Bicarbonate FEEDTUBE 325 mg PRN PRN Administration For Clogged Feeding Tube Sodium Chloride 10 ml 07/04/19 10:00 07/21/19 09:47 Sodium Chloride Flush Syringe 10 Ml IV 10 ml BID TAMMIE Administration Sodium Chloride 10 ml 07/04/19 04:24 Sodium Chloride Flush Syringe 10 Ml IV PRN PRN LINE FLUSH Sodium Hypochlorite 1 applic 07/10/19 14:00 07/20/19 22:43 Dakin's Half Strength TP 1 applicatio BID TAMMIE Administration Nutrition/Malnutrition Assess - Dietary Evaluation Nutrition/Malnutrition Findings: Nutrition Notes Start: 07/04/19 09 :17 Freq: Status: Active Protocol: Document 07/18/19 13:34 LM (Rec: 07/18/19 13:41 LM [id number]) Nutrition Notes Initial or Follow up Reassessment Current Diagnosis Acute Kidney Injury,COPD, Decubitus(Pressure Ulcer), Diabetes,Hypertension Other Pertinent Diagnosis COVID-19 (+), pneu, seizures, schizophrenia, Buttock and R foot PU, Current Diet Nepro 1.8 at 45ml/hr Labs/Tests Reviewed Pertinent Medications Levophed Height 5 ft 11 in Weight 84 kg [place] Body Weight (kg) 78.18 BMI 25.8 Weight Status Overweight Subjective/Other Information PEG tube was leaking per RN notes yesterday. RN stated he is now tolerating TF at goal. Percent of energy/protein needs met: 100%/80% Burn Absent Trauma Absent Current % PO Negligible Minimum of two criteria No physical signs of malnutrition #2 Nutrition Diagnosis Increased nutrient needs ( specify in comment below) Diagnosis Progress(for reassessment Continues documentation) #1 Nutrition Diagnosis Inadequate oral intake Diagnosis Progress(for reassessment Continues documentation) Is patient on ventilator? Yes Is Patient Ambulatory and/or Out of Bed No REE-([facility]-confined to bed) [phone] Additional Notes Protein: 109-182g (1.2-2g/kg) Fluid: 1 ml/kcal or per MD Nutrition Intervention Change Diet Order: TF Nutrition Support: Nepro 1.8 at 45ml/hr Flush 200ml q4h Kcal 1,944 Protein (gm) 87 Fluid (mL) 785 Goal #1 TF tolerance Goal #2 Meet at least 75% of energy and protein needs Anticipated Discharge Needs: unable to determine at this time Follow-Up By: 07/23/19 Additional Comments F/U for TF tolerance
--- NOTE | 2019-07-21 13:18 | Progress Note ---
Assessment and Plan 1. Hypoantremia: Suspect SIADH. Sodium level has improved, was 144. Monitor Sodium level. No new labs today. 2. FEN: Metabolic acidosis, improved, monitor. Hyperkalemia, improved, monitor. Monitor volume status and lytes. 3. Acute kidney injury: Vasomotor MIRANDA likely 2/2 persistent hypotension. Initial bump in creatinine was 07/14. Creatinine is better, now 0.6. Monitor renal function. Avoid nephrotoxic agents. Meds dosage based on GFR. 4. Acute hypoxic respiratory failure: Currently intubated and on vent. Considering trach depending on family wishes. Pulmonary following. 5. Severe Sepsis, POA. Tachycardia is improving with metoprolol but still present. Still on levophed but titrated down which pt is tolerating. Followed by ID. 6. Severe COVID-19 pneumonia. 7. Shock: Still on pressors, titrating down. Receiving IV fluid bolus as needed for hypotension. Monitor BP closely. 8. Microcytic anemia, POA: Has received total of 4 units PRBC. Hgb improved 07/15 s/p PRBC. Monitor hgb. 9. Possible occlusion of PEG tube: Occlusion noted by staff. Imaging 07/16 confirmed PEG is in place. 10. Diabetes mellitus. 11. COPD. 12. Encephalopathy, POA: Metabolic. Subjective Date of service: 07/21/19 Patient was only seen from outside the glass door to prevent exposure to COVID- 19. PPE is also limited supply. Reviewed all notes, vitals, and labs to date. Discussed plan of care with primary RN. Objective - Exam: General appearance: intubated on ventilator, carroll bag HEENT: not examined Neck: not examined Respiratory: not examined Heart: sinus tach on the monitor Gastrointestinal: not examined Integumentary: not examined Neurologic: not examined Ext: not examined Subjective Date of service: 07/21/19 Principal diagnosis: Bilateral pneumonia, severe sepsis with septic shock, encephalopathy Objective - Vital Signs Vital signs: Vital Signs - 12hr 07/21/19 07/21/19 07/21/19 01:30 01:45 02:00 Temperature Pulse Rate 107 H 106 H 106 H Pulse Rate [ From Monitor] Pulse Rate [ Left Dorsalis Pedis] Pulse Rate [ Left Radial] Pulse Rate [ Right Dorsalis Pedis] Pulse Rate [ Right Radial] Respiratory 15 22 20 Rate Blood Pressure 118/66 125/70 125/70 O2 Sat by Pulse 100 100 100 Oximetry 07/21/19 07/21/19 07/21/19 02:15 02:30 02:46 Temperature Pulse Rate 109 H 109 H 110 H Pulse Rate [ From Monitor] Pulse Rate [ Left Dorsalis Pedis] Pulse Rate [ Left Radial] Pulse Rate [ Right Dorsalis Pedis] Pulse Rate [ Right Radial] Respiratory 24 23 25 H Rate Blood Pressure 131/90 131/90 106/72 O2 Sat by Pulse 100 100 100 Oximetry 07/21/19 07/21/19 07/21/19 03:00 03:15 03:30 Temperature Pulse Rate 120 H 111 H 108 H Pulse Rate [ From Monitor] Pulse Rate [ Left Dorsalis Pedis] Pulse Rate [ Left Radial] Pulse Rate [ Right Dorsalis Pedis] Pulse Rate [ Right Radial] Respiratory 27 H 23 21 Rate Blood Pressure 106/72 115/73 128/80 O2 Sat by Pulse 100 100 100 Oximetry 07/21/19 07/21/19 07/21/19 03:46 04:00 04:15 Temperature 97 F L Pulse Rate 106 H 102 H 102 H Pulse Rate [ 102 H From Monitor] Pulse Rate [ 102 H Left Dorsalis Pedis] Pulse Rate [ 102 H Left Radial] Pulse Rate [ 102 H Right Dorsalis Pedis] Pulse Rate [ 102 H Right Radial] Respiratory 20 16 19 Rate Blood Pressure 131/68 125/69 129/73 O2 Sat by Pulse 100 100 100 Oximetry 07/21/19 07/21/19 07/21/19 04:30 04:45 04:55 Temperature Pulse Rate 107 H 106 H 109 H Pulse Rate [ From Monitor] Pulse Rate [ Left Dorsalis Pedis] Pulse Rate [ Left Radial] Pulse Rate [ Right Dorsalis Pedis] Pulse Rate [ Right Radial] Respiratory 16 26 H Rate Blood Pressure 129/69 122/72 128/70 O2 Sat by Pulse 100 99 100 Oximetry 07/21/19 07/21/19 07/21/19 05:00 05:15 05:30 Temperature Pulse Rate 108 H 107 H 109 H Pulse Rate [ From Monitor] Pulse Rate [ Left Dorsalis Pedis] Pulse Rate [ Left Radial] Pulse Rate [ Right Dorsalis Pedis] Pulse Rate [ Right Radial] Respiratory 23 25 H 21 Rate Blood Pressure 128/70 118/61 118/61 O2 Sat by Pulse 100 97 97 Oximetry 07/21/19 07/21/19 07/21/19 05:45 06:00 06:15 Temperature Pulse Rate 109 H 108 H 106 H Pulse Rate [ From Monitor] Pulse Rate [ Left Dorsalis Pedis] Pulse Rate [ Left Radial] Pulse Rate [ Right Dorsalis Pedis] Pulse Rate [ Right Radial] Respiratory 24 25 H 24 Rate Blood Pressure 116/63 118/64 119/67 O2 Sat by Pulse 97 98 98 Oximetry 07/21/19 07/21/19 07/21/19 06:30 06:39 06:45 Temperature 97.3 F L Pulse Rate 103 H 104 H Pulse Rate [ From Monitor] Pulse Rate [ Left Dorsalis Pedis] Pulse Rate [ Left Radial] Pulse Rate [ Right Dorsalis Pedis] Pulse Rate [ Right Radial] Respiratory 24 21 Rate Blood Pressure 124/74 123/71 O2 Sat by Pulse 100 100 Oximetry 07/21/19 07/21/19 07/21/19 07:00 07:15 07:30 Temperature Pulse Rate 103 H 107 H 103 H Pulse Rate [ From Monitor] Pulse Rate [ Left Dorsalis Pedis] Pulse Rate [ Left Radial] Pulse Rate [ Right Dorsalis Pedis] Pulse Rate [ Right Radial] Respiratory 22 24 24 Rate Blood Pressure 125/77 129/67 129/67 O2 Sat by Pulse 100 100 100 Oximetry 07/21/19 07/21/19 07/21/19 07:45 08:00 08:15 Temperature Pulse Rate 106 H 113 H 108 H Pulse Rate [ From Monitor] Pulse Rate [ 106 H Left Dorsalis Pedis] Pulse Rate [ Left Radial] Pulse Rate [ 106 H Right Dorsalis Pedis] Pulse Rate [ Right Radial] Respiratory 25 H 26 H 17 Rate Blood Pressure 123/69 128/75 124/67 O2 Sat by Pulse 100 97 99 Oximetry 07/21/19 07/21/19 07/21/19 08:30 08:45 09:00 Temperature Pulse Rate 109 H 110 H 108 H Pulse Rate [ From Monitor] Pulse Rate [ Left Dorsalis Pedis] Pulse Rate [ Left Radial] Pulse Rate [ Right Dorsalis Pedis] Pulse Rate [ Right Radial] Respiratory 20 20 21 Rate Blood Pressure 127/66 128/75 127/66 O2 Sat by Pulse 99 99 100 Oximetry 07/21/19 07/21/19 07/21/19 09:16 09:30 09:46 Temperature Pulse Rate 112 H 116 H 113 H Pulse Rate [ From Monitor] Pulse Rate [ Left Dorsalis Pedis] Pulse Rate [ Left Radial] Pulse Rate [ Right Dorsalis Pedis] Pulse Rate [ Right Radial] Respiratory 26 H 22 28 H Rate Blood Pressure 108/63 114/74 105/63 O2 Sat by Pulse 98 97 98 Oximetry 07/21/19 07/21/19 07/21/19 10:00 10:16 10:30 Temperature 95.9 F L Pulse Rate 113 H 112 H 112 H Pulse Rate [ From Monitor] Pulse Rate [ Left Dorsalis Pedis] Pulse Rate [ Left Radial] Pulse Rate [ Right Dorsalis Pedis] Pulse Rate [ Right Radial] Respiratory 27 H 27 H 26 H Rate Blood Pressure 104/61 187/139 187/139 O2 Sat by Pulse 98 98 99 Oximetry 07/21/19 07/21/19 07/21/19 10:45 11:00 12:19 Temperature Pulse Rate 112 H 112 H 116 H Pulse Rate [ From Monitor] Pulse Rate [ Left Dorsalis Pedis] Pulse Rate [ Left Radial] Pulse Rate [ Right Dorsalis Pedis] Pulse Rate [ Right Radial] Respiratory 27 H 25 H Rate Blood Pressure 129/71 122/73 127/75 O2 Sat by Pulse 99 99 99 Oximetry - Lab 07/22/19 05:38 07/22/19 05:38 Most recent lab results ABG pH 7.342 pH Units (7.350-7.450) L 07/19/19 03:45 ABG pCO2 45.2 mm Hg 07/19/19 03:45 ABG pO2 95.0 mm Hg (80.0-90.0) H 07/19/19 03:45 ABG HCO3 24.0 mmol/L (20.0-26.0) 07/19/19 03:45 ABG O2 Saturation 97.1 % (95.0-99.0) 07/19/19 03:45 Calcium 9.5 mg/dL (8.4-10.2) 07/20/19 04:39 Phosphorus 3.60 mg/dL (2.5-4.5) 07/05/19 04:00 Magnesium 1.80 mg/dL (1.7-2.3) 07/11/19 05:14 Medications & Allergies - Medications Allergies/Adverse Reactions: Allergies No Known Allergies Allergy (Unverified 09/09/16 16:29) Home Medications: Home Medications Medication Instructions Recorded Confirmed Last Taken Type Acetaminophen [Tylenol] 500 mg PO TID 07/04/19 07/04/19 Unknown History Albuterol Sulfate [Proair 90 mcg IH TID 07/04/19 07/04/19 Unknown History Digihaler] Amlodipine Besylate [Norvasc] 2.5 mg PO QDAY 07/04/19 07/04/19 Unknown History Aspirin [Aspirin BABY CHEW TAB] 81 mg PO QDAY 07/04/19 07/04/19 Unknown History Atorvastatin Calcium [Lipitor] 80 mg PO QDAY 07/04/19 07/04/19 Unknown History Benztropine Mesylate 0.5 mg PO QDAY 07/04/19 07/04/19 Unknown History Budesonide/Formoterol Fumarate 10.2 gm IH BID 07/04/19 07/04/19 Unknown History [Budesonide-Formoterol 160-4.5] Divalproex ER [DepaKOTE ER] 1,000 mg PO QDAY 07/04/19 07/04/19 Unknown History Docusate Sodium [Colace] 100 mg PO QDAY 07/04/19 07/04/19 Unknown History Folic Acid [Folvite] 1 mg PO QDAY 07/04/19 07/04/19 Unknown History Hydrophilic Ointment [Dermafix] 113 gm TP QDAY 07/04/19 07/04/19 Unknown History Losartan [Cozaar] 100 mg PO QDAY 07/04/19 07/04/19 Unknown History Metformin HCl [Metformin HCl ER] 500 mg PO QDAY 07/04/19 07/04/19 Unknown History Metoprolol Tartrate 25 mg PO BID 07/04/19 07/04/19 Unknown History Multivit with Minerals/Ginseng 1 each PO QDAY 07/04/19 07/04/19 Unknown History [Super Ginseng Multivit Cap] Quetiapine Fumarate [SEROquel Xr] 400 mg PO QHS 07/04/19 07/04/19 Unknown History Sertraline HCl [Zoloft] 100 mg PO QDAY 07/04/19 07/04/19 Unknown History Sildenafil Citrate [Viagra] 100 mg PO QDAY PRN 07/04/19 07/04/19 Unknown History Tamsulosin [Flomax] 0.4 mg PO QDAY 07/04/19 07/04/19 Unknown History Active Medications: Generic Name Dose Route Start Last Admin Trade Name Freq PRN Reason Stop Dose Admin Acetaminophen 650 mg 07/04/19 04:24 Tylenol RI Q6H PRN Pain MILD(1-3)/Fever >100.5/MURO Acetaminophen 650 mg 07/10/19 04:00 07/15/19 20:35 Tylenol PO 650 mg Q6HR PRN Administration Pain, Mild (1-3) FEVER Lipase/Protease/Amylase 1 each 07/04/19 10:04 07/20/19 06:[address] 10,500 Unit FEEDTUBE 1 each PRN PRN Administration For Clogged Feeding Tube Aspirin 81 mg 07/05/19 10:00 07/21/19 09:46 Baby Aspirin PO 81 mg QDAY TAMMIE Administration Dextrose 50 ml 07/04/19 06:54 D50w (25gm) Syringe IV Q30MIN PRN Hypoglycemia Protocol Docusate Sodium 100 mg 07/10/19 10:00 07/21/19 09:46 Colace PO 100 mg BID TAMMIE Administration Famotidine 20 mg 07/17/19 10:00 07/21/19 09:46 Pepcid PO 20 mg BID TAMMIE Administration Folic Acid 1 mg 07/05/19 10:00 07/21/19 09:46 Folvite PO 1 mg QDAY TAMMIE Administration Hydrophilic Ointment 1 applic 07/03/19 19:56 07/05/19 17:42 Vaseline Lip Therapy TP 1 applic Q2HR PRN Administration Dry Lips Norepinephrine 4 mg in 250 mls @ 7.5 mls/hr 07/03/19 23:00 07/20/19 01:00 Levophed Drip 4 Mg/Ns 250 Ml IV Infused TITR TAMMIE Titration Protocol 2 MCG/MIN Insulin Human Lispro 0 unit 07/07/19 12:00 07/20/19 22:03 Humalog SUB-Q Not Given Q6HR TAMMIE Protocol Levetiracetam 750 mg 07/06/19 11:00 07/21/19 09:46 Keppra FEEDTUBE 750 mg Q12HR TAMMIE Administration Metoprolol Tartrate 5 mg 07/12/19 15:08 07/12/19 15:30 Metoprolol IV 5 mg Q6HR PRN Administration Tachyarrhythmias Multi-Ingred Cream/Lotion/Oil/Oint 1 applic 07/03/19 19:56 07/05/19 13:19 Artificial Tears Ophth Oint OU 1 applic Q4HR PRN Administration Dry Eye(s) Naloxone HCl 0.1 mg 07/04/19 04:24 Naloxone IV Q2MIN PRN Res Rate </= 8 or 02 SAT < 92% Oxycodone/Acetaminophen 1 tab 07/19/19 14:17 Percocet 5/325 PO Q4H PRN Pain, Moderate (4-6) Scopolamine 1 each 07/10/19 11:00 07/19/19 12:04 Transderm-Scop TD 1 each Q3D TAMMIE Administration Simple Syrup 15 ml 07/04/19 10:04 07/10/19 21:56 Simple Syrup FEEDTUBE 15 ml PRN PRN Administration Hypoglycemia Simple Syrup 30 ml 07/04/19 10:04 Simple Syrup FEEDTUBE PRN PRN Hypoglycemia Sodium Bicarbonate 325 mg 07/04/19 10:04 07/20/19 10:20 Sodium Bicarbonate FEEDTUBE 325 mg PRN PRN Administration For Clogged Feeding Tube Sodium Chloride 10 ml 07/04/19 10:00 07/21/19 09:47 Sodium Chloride Flush Syringe 10 Ml IV 10 ml BID TAMMIE Administration Sodium Chloride 10 ml 07/04/19 04:24 Sodium Chloride Flush Syringe 10 Ml IV PRN PRN LINE FLUSH Sodium Hypochlorite 1 applic 07/10/19 14:00 07/20/19 22:43 Dakin's Half Strength TP 1 applicatio BID TAMMIE Administration
[2019-07-21] MEDS: INSULIN LISPRO 100 UNIT/ML SUB-Q SCH ×2 (14:26→19:03)
[2019-07-21] MEDS: fentaNYL DRIP Premix 2,000 MCG/100 ML BAG IV SCH ×2 (15:29→21:06)
--- NOTE | 2019-07-21 15:49 | Progress Note ---
Assessment and Plan Acute hypoxemic respiratory failure on MVS Severe sepsis with Shock. Bilateral Pneumonia. PUI coronavirus-19 infection. Acute possibly on chronic encephalopathy. Oropharyngeal dysphagia. Anemia. Decubitus ulcers Diabetes type 2. Hypertension. Leukocytosis. Anemia that is microcytic. Elevated serum transaminases. [id number] metabolic acidosis. Lactic acidosis. Severe protein-calorie malnutrition - RN asked to resume fentanyl drip [place] - keep set rate at 16/min - repeat ABG in am - continue fentanyl gtt for pain control / sedation - continue to wean supplemental oxygen for target O2 sat's > 90% acutely - Daily SAT's and SBT assessment as tolerated - VAP bundle addressed - continue lung protective strategies - continue bronchodilators with pulmonary hygiene per RT - wean per pulmonary driven protocols otherwise - prn Levophed for target MAP > 65 mmHg - continue airborne and contact COVID-19 precautions - COVID-19 test positive - complete anti-infectives and de-escalate per ID recommendations - continue wound care per WCT - sedation prn for target RASS 0 to -1 - accuchecks with glycemic control per SSI (While critically ill target blood glucose of 140-180 mg/dL; avoid hypoglycemia) - to avoid benzodiazepine's, reduce the possibility of delirium - prn analgesia per CPOT score - Maintenance of sleep-wake cycle, avoid delirium - continue enteral nutritional support at goal rate as tolerated - G.I. & VTE prophylaxis - PT/OT/ROM exercises - continue mobility protocols for pressure ulcer prophylaxis - Monitor hemodynamics closely - continue other care per attending / other consultants - discharge planning ongoing concurrently .... Re-evaluate in am & prn CONDITION: CRITICAL PROGNOSIS: GUARDED CODE STATUS: FULL CODE The high probability of a clinically significant, sudden or life-threatening deterioration of the [respiratory & cardiovascular] system(s) required my full and direct attention, intervention and personal management. The aggregate critical care time was [34] minutes without overlap. Time includes spent on; [x] Data Review and interpretation [x] Patient assessment and monitoring of vital signs [x] Documentation [x] Medication orders and management Subjective Date of service: 07/21/19 Principal diagnosis: Bilateral pneumonia, severe sepsis with septic shock, encephalopathy Interval history: Patient is seen today for: Ac hypoxemic Resp failure on MVS; Severe sepsis with Shock; Ivan. Pneumonia; PUI coronavirus-19 infection. Seen and examined at bedside; 24hour events reviewed; nursing and respiratory care staff consulted; no adverse overnight events reported to me; resting in bed; remains on MVS; woprk of breathing is increased; fentanyl drip off; failed bedside SBT quickly; No emesis or overt aspiration and no fevers Objective Vital Signs - 12hr 07/21/19 07/21/19 07/21/19 04:00 04:15 04:30 Temperature 97 F L Pulse Rate 102 H 102 H 107 H Pulse Rate [ 102 H From Monitor] Pulse Rate [ 102 H Left Dorsalis Pedis] Pulse Rate [ 102 H Left Radial] Pulse Rate [ 102 H Right Dorsalis Pedis] Pulse Rate [ 102 H Right Radial] Respiratory 16 19 16 Rate Blood Pressure 125/69 129/73 129/69 O2 Sat by Pulse 100 100 100 Oximetry 07/21/19 07/21/19 07/21/19 04:45 04:55 05:00 Temperature Pulse Rate 106 H 109 H 108 H Pulse Rate [ From Monitor] Pulse Rate [ Left Dorsalis Pedis] Pulse Rate [ Left Radial] Pulse Rate [ Right Dorsalis Pedis] Pulse Rate [ Right Radial] Respiratory 26 H 23 Rate Blood Pressure 122/72 128/70 128/70 O2 Sat by Pulse 99 100 100 Oximetry 07/21/19 07/21/19 07/21/19 05:15 05:30 05:45 Temperature Pulse Rate 107 H 109 H 109 H Pulse Rate [ From Monitor] Pulse Rate [ Left Dorsalis Pedis] Pulse Rate [ Left Radial] Pulse Rate [ Right Dorsalis Pedis] Pulse Rate [ Right Radial] Respiratory 25 H 21 24 Rate Blood Pressure 118/61 118/61 116/63 O2 Sat by Pulse 97 97 97 Oximetry 07/21/19 07/21/19 07/21/19 06:00 06:15 06:30 Temperature Pulse Rate 108 H 106 H 103 H Pulse Rate [ From Monitor] Pulse Rate [ Left Dorsalis Pedis] Pulse Rate [ Left Radial] Pulse Rate [ Right Dorsalis Pedis] Pulse Rate [ Right Radial] Respiratory 25 H 24 24 Rate Blood Pressure 118/64 119/67 124/74 O2 Sat by Pulse 98 98 100 Oximetry 07/21/19 07/21/19 07/21/19 06:39 06:45 07:00 Temperature 97.3 F L Pulse Rate 104 H 103 H Pulse Rate [ From Monitor] Pulse Rate [ Left Dorsalis Pedis] Pulse Rate [ Left Radial] Pulse Rate [ Right Dorsalis Pedis] Pulse Rate [ Right Radial] Respiratory 21 22 Rate Blood Pressure 123/71 125/77 O2 Sat by Pulse 100 100 Oximetry 07/21/19 07/21/19 07/21/19 07:15 07:30 07:45 Temperature Pulse Rate 107 H 103 H 106 H Pulse Rate [ From Monitor] Pulse Rate [ Left Dorsalis Pedis] Pulse Rate [ Left Radial] Pulse Rate [ Right Dorsalis Pedis] Pulse Rate [ Right Radial] Respiratory 24 24 25 H Rate Blood Pressure 129/67 129/67 123/69 O2 Sat by Pulse 100 100 100 Oximetry 07/21/19 07/21/19 07/21/19 08:00 08:15 08:30 Temperature Pulse Rate 113 H 108 H 109 H Pulse Rate [ From Monitor] Pulse Rate [ Left Dorsalis Pedis] Pulse Rate [ Left Radial] Pulse Rate [ 106 H Right Dorsalis Pedis] Pulse Rate [ Right Radial] Respiratory 26 H 17 20 Rate Blood Pressure 128/75 124/67 127/66 O2 Sat by Pulse 97 99 99 Oximetry 07/21/19 07/21/19 07/21/19 08:45 09:00 09:16 Temperature Pulse Rate 110 H 108 H 112 H Pulse Rate [ From Monitor] Pulse Rate [ Left Dorsalis Pedis] Pulse Rate [ Left Radial] Pulse Rate [ Right Dorsalis Pedis] Pulse Rate [ Right Radial] Respiratory 20 21 26 H Rate Blood Pressure 128/75 127/66 108/63 O2 Sat by Pulse 99 100 98 Oximetry 07/21/19 07/21/19 07/21/19 09:30 09:46 10:00 Temperature 95.9 F L Pulse Rate 116 H 113 H 113 H Pulse Rate [ From Monitor] Pulse Rate [ Left Dorsalis Pedis] Pulse Rate [ Left Radial] Pulse Rate [ Right Dorsalis Pedis] Pulse Rate [ Right Radial] Respiratory 22 28 H 27 H Rate Blood Pressure 114/74 105/63 104/61 O2 Sat by Pulse 97 98 98 Oximetry 07/21/19 07/21/19 07/21/19 10:16 10:30 10:45 Temperature Pulse Rate 112 H 112 H 112 H Pulse Rate [ From Monitor] Pulse Rate [ Left Dorsalis Pedis] Pulse Rate [ Left Radial] Pulse Rate [ Right Dorsalis Pedis] Pulse Rate [ Right Radial] Respiratory 27 H 26 H 27 H Rate Blood Pressure 187/139 187/139 129/71 O2 Sat by Pulse 98 99 99 Oximetry 07/21/19 07/21/19 07/21/19 11:00 11:15 11:30 Temperature Pulse Rate 112 H 115 H 114 H Pulse Rate [ From Monitor] Pulse Rate [ Left Dorsalis Pedis] Pulse Rate [ Left Radial] Pulse Rate [ Right Dorsalis Pedis] Pulse Rate [ Right Radial] Respiratory 25 H 27 H 27 H Rate Blood Pressure 122/73 116/68 116/68 O2 Sat by Pulse 99 99 99 Oximetry 07/21/19 07/21/19 07/21/19 11:45 12:00 12:15 Temperature 96.0 F L Pulse Rate 114 H 115 H 117 H Pulse Rate [ From Monitor] Pulse Rate [ Left Dorsalis Pedis] Pulse Rate [ Left Radial] Pulse Rate [ Right Dorsalis Pedis] Pulse Rate [ Right Radial] Respiratory 26 H 26 H 18 Rate Blood Pressure 127/75 133/81 133/78 O2 Sat by Pulse 100 99 99 Oximetry 07/21/19 07/21/19 07/21/19 12:19 12:30 12:45 Temperature Pulse Rate 116 H 117 H 118 H Pulse Rate [ From Monitor] Pulse Rate [ Left Dorsalis Pedis] Pulse Rate [ Left Radial] Pulse Rate [ Right Dorsalis Pedis] Pulse Rate [ Right Radial] Respiratory 19 15 Rate Blood Pressure 127/75 123/74 133/97 O2 Sat by Pulse 99 99 100 Oximetry 07/21/19 07/21/19 07/21/19 13:00 13:16 13:30 Temperature Pulse Rate 120 H 124 H 122 H Pulse Rate [ From Monitor] Pulse Rate [ Left Dorsalis Pedis] Pulse Rate [ Left Radial] Pulse Rate [ Right Dorsalis Pedis] Pulse Rate [ Right Radial] Respiratory 21 30 H 33 H Rate Blood Pressure 133/78 127/87 127/87 O2 Sat by Pulse 100 99 99 Oximetry 07/21/19 07/21/19 07/21/19 13:46 14:00 14:16 Temperature Pulse Rate 117 H 136 H 122 H Pulse Rate [ From Monitor] Pulse Rate [ Left Dorsalis Pedis] Pulse Rate [ Left Radial] Pulse Rate [ Right Dorsalis Pedis] Pulse Rate [ Right Radial] Respiratory 24 21 22 Rate Blood Pressure 137/74 127/87 134/83 O2 Sat by Pulse 99 99 98 Oximetry 07/21/19 07/21/19 07/21/19 14:30 14:46 15:00 Temperature Pulse Rate 125 H 123 H 126 H Pulse Rate [ From Monitor] Pulse Rate [ Left Dorsalis Pedis] Pulse Rate [ Left Radial] Pulse Rate [ Right Dorsalis Pedis] Pulse Rate [ Right Radial] Respiratory 23 19 21 Rate Blood Pressure 134/83 131/91 131/91 O2 Sat by Pulse 98 99 99 Oximetry Constitutional: appears uncomfortable, other (eelderly and chronically ill looking AAM, normocep[krystina;ic with mildly increased respiratory effort at rest) Eyes: non-icteric ENT: oropharynx moist, other (ETT 24 cm RUTH) Neck: supple, no lymphadenopathy, no JVD Effort: very labored Ascultation: Bilateral: diminished breath sounds, rhonchi Percussion: Bilateral: not dull Cardiovascular: regular rate and rhythm Gastrointestinal: normoactive bowel sounds, soft, non-tender, non-distended, other (+ PEG tube with mild TF leakage) Integumentary: decubitus ulcer Extremities: no cyanosis, no edema, pink and warm, pulses normal Neurologic: unable to assess Psychiatric: other (Unable to assess re: AMS) CBC and BMP: 07/19/19 08:45 07/20/19 04:39 ABG, PT/INR, D-dimer: ABG ABG pH 7.342 pH Units (7.350-7.450) L 07/19/19 03:45 ABG pCO2 45.2 mm Hg 07/19/19 03:45 ABG pO2 95.0 mm Hg (80.0-90.0) H 07/19/19 03:45 ABG O2 Saturation 97.1 % (95.0-99.0) 07/19/19 03:45 PT/INR, D-dimer PT 16.0 Sec. (12.2-14.9) H 07/03/19 22:20 INR 1.26 (0.87-1.13) H 07/03/19 22:20 D-Dimer 1142.18 ng/mlDDU (0-234) H 07/08/19 00:45 Abnormal lab findings: Abnormal Labs 07/03/19 07/03/19 07/03/19 19:57 21:10 21:13 WBC RBC Hgb Hct MCV MCH MCHC RDW Plt Count Lymph % (Auto) [place] % (Auto) Lymph # [place] # Baso # Seg Neutrophils % Seg Neuts % (Manual) Lymphocytes % (Manual) Seg Neutrophils # Seg Neutrophils # Man Lymphocytes # (Manual) PT INR D-Dimer ABG pH 7.238 L ABG pO2 210.8 H ABG HCO3 15.4 L ABG O2 Saturation 99.2 H ABG Base Excess -11.1 L ABG Hemoglobin 8.0 L Oxyhemoglobin Sodium 124 L Potassium Chloride 92.9 L Carbon Dioxide 10 L BUN 23 H Creatinine 0.5 L Glucose 118 H POC Glucose Lactic Acid Calcium 7.0 L Magnesium Iron TIBC Ferritin AST 70 H ALT 88 H Lactate Dehydrogenase Troponin T 0.032 H C-Reactive Protein Total Protein 5.0 L Albumin 1.8 L Cholesterol 47 L LDL Cholesterol Direct 25 L HDL Cholesterol 20 L Urine WBC (Auto) 12.0 H Vancomycin Trough Coronavirus (PCR) Crossmatch 07/03/19 07/03/19 07/03/19 22:20 22:20 22:20 WBC 30.5 H RBC 2.96 L Hgb 7.7 L Hct 23.9 L MCV 81 L MCH 26 L MCHC RDW 18.6 H Plt Count 459 H Lymph % (Auto) [place] % (Auto) Lymph # [place] # Baso # Seg Neutrophils % Seg Neuts % (Manual) 93.0 H Lymphocytes % (Manual) 0.5 L Seg Neutrophils # Seg Neutrophils # Man 28.4 H Lymphocytes # (Manual) 0.2 L PT 16.0 H INR 1.26 H D-Dimer ABG pH ABG pO2 ABG HCO3 ABG O2 Saturation ABG Base Excess ABG Hemoglobin Oxyhemoglobin Sodium Potassium Chloride Carbon Dioxide BUN Creatinine Glucose POC Glucose Lactic Acid 6.90 H* Calcium Magnesium Iron TIBC Ferritin AST ALT Lactate Dehydrogenase Troponin T C-Reactive Protein Total Protein Albumin Cholesterol LDL Cholesterol Direct HDL Cholesterol Urine WBC (Auto) Vancomycin Trough Coronavirus (PCR) Crossmatch 07/03/19 07/04/19 07/04/19 23:58 05:15 07:05 WBC 17.1 H RBC 3.22 L Hgb 8.3 L Hct 25.4 L MCV 79 L MCH 26 L MCHC RDW 18.6 H Plt Count Lymph % (Auto) [place] % (Auto) Lymph # [place] # Baso # Seg Neutrophils % Seg Neuts % (Manual) 74.0 H Lymphocytes % (Manual) 0 L Seg Neutrophils # Seg Neutrophils # Man 12.7 H Lymphocytes # (Manual) 0.0 L PT INR D-Dimer ABG pH 7.310 L ABG pO2 73.2 L ABG HCO3 17.8 L ABG O2 Saturation 93.8 L ABG Base Excess -7.7 L ABG Hemoglobin 9.6 L Oxyhemoglobin 92.3 L Sodium Potassium Chloride Carbon Dioxide BUN Creatinine Glucose POC Glucose Lactic Acid 7.10 H* Calcium Magnesium Iron TIBC Ferritin AST ALT Lactate Dehydrogenase Troponin T C-Reactive Protein Total Protein Albumin Cholesterol LDL Cholesterol Direct HDL Cholesterol Urine WBC (Auto) Vancomycin Trough Coronavirus (PCR) Crossmatch 07/04/19 07/04/19 07/04/19 07:05 07:05 07:05 WBC RBC Hgb Hct MCV MCH MCHC RDW Plt Count Lymph % (Auto) [place] % (Auto) Lymph # [place] # Baso # Seg Neutrophils % Seg Neuts % (Manual) Lymphocytes % (Manual) Seg Neutrophils # Seg Neutrophils # Man Lymphocytes # (Manual) PT INR D-Dimer ABG pH ABG pO2 ABG HCO3 ABG O2 Saturation ABG Base Excess ABG Hemoglobin Oxyhemoglobin Sodium 120 L Potassium 5.1 H Chloride 90.0 L Carbon Dioxide 14 L BUN 26 H Creatinine 0.5 L Glucose POC Glucose Lactic Acid 3.30 H* Calcium 8.0 L Magnesium Iron 9 L TIBC 97 L Ferritin AST 73 H ALT 91 H Lactate Dehydrogenase Troponin T C-Reactive Protein Total Protein 5.5 L Albumin 2.0 L Cholesterol LDL Cholesterol Direct HDL Cholesterol Urine WBC (Auto) Vancomycin Trough Coronavirus (PCR) Crossmatch 07/04/19 07/04/19 07/04/19 09:39 09:39 09:39 WBC RBC Hgb Hct MCV MCH MCHC RDW Plt Count Lymph % (Auto) [place] % (Auto) Lymph # [place] # Baso # Seg Neutrophils % Seg Neuts % (Manual) Lymphocytes % (Manual) Seg Neutrophils # Seg Neutrophils # Man Lymphocytes # (Manual) PT INR D-Dimer 1419.14 H ABG pH ABG pO2 ABG HCO3 ABG O2 Saturation ABG Base Excess ABG Hemoglobin Oxyhemoglobin Sodium Potassium Chloride Carbon Dioxide BUN Creatinine Glucose POC Glucose Lactic Acid Calcium Magnesium Iron TIBC Ferritin 1719.0 H AST ALT Lactate Dehydrogenase 234 H Troponin T C-Reactive Protein 15.50 H Total Protein Albumin Cholesterol LDL Cholesterol Direct HDL Cholesterol Urine WBC (Auto) Vancomycin Trough Coronavirus (PCR) Crossmatch 07/04/19 07/04/19 07/04/19 10:09 18:08 18:28 WBC RBC Hgb Hct MCV MCH MCHC RDW Plt Count Lymph % (Auto) [place] % (Auto) Lymph # [place] # Baso # Seg Neutrophils % Seg Neuts % (Manual) Lymphocytes % (Manual) Seg Neutrophils # Seg Neutrophils # Man Lymphocytes # (Manual) PT INR D-Dimer ABG pH ABG pO2 ABG HCO3 ABG O2 Saturation ABG Base Excess ABG Hemoglobin Oxyhemoglobin Sodium 117 L* Potassium 5.6 H Chloride 90.3 L Carbon Dioxide 16 L BUN 28 H Creatinine 0.5 L Glucose 58 L POC Glucose 65 L Lactic Acid Calcium 8.2 L Magnesium Iron TIBC Ferritin AST ALT Lactate Dehydrogenase Troponin T C-Reactive Protein Total Protein Albumin Cholesterol LDL Cholesterol Direct HDL Cholesterol Urine WBC (Auto) Vancomycin Trough Coronavirus (PCR) Positive A Crossmatch 07/04/19 07/04/19 07/04/19 23:45 Unknown Unknown WBC RBC Hgb Hct MCV MCH MCHC RDW Plt Count Lymph % (Auto) [place] % (Auto) Lymph # [place] # Baso # Seg Neutrophils % Seg Neuts % (Manual) Lymphocytes % (Manual) Seg Neutrophils # Seg Neutrophils # Man Lymphocytes # (Manual) PT INR D-Dimer 759.77 H ABG pH ABG pO2 ABG HCO3 ABG O2 Saturation ABG Base Excess ABG Hemoglobin Oxyhemoglobin Sodium 122 L Potassium Chloride 93.0 L Carbon Dioxide 19 L BUN 27 H Creatinine 0.5 L Glucose POC Glucose Lactic Acid Calcium 8.3 L Magnesium Iron TIBC Ferritin 1301.0 H AST ALT Lactate Dehydrogenase Troponin T C-Reactive Protein Total Protein Albumin Cholesterol LDL Cholesterol Direct HDL Cholesterol Urine WBC (Auto) Vancomycin Trough Coronavirus (PCR) Crossmatch 07/04/19 07/05/19 07/05/19 Unknown 03:20 04:00 WBC RBC Hgb Hct MCV MCH MCHC RDW Plt Count Lymph % (Auto) [place] % (Auto) Lymph # [place] # Baso # Seg Neutrophils % Seg Neuts % (Manual) Lymphocytes % (Manual) Seg Neutrophils # Seg Neutrophils # Man Lymphocytes # (Manual) PT INR D-Dimer ABG pH ABG pO2 60.6 L ABG HCO3 ABG O2 Saturation 93.5 L ABG Base Excess -2.4 L ABG Hemoglobin 6.9 L Oxyhemoglobin 92.0 L Sodium 125 L Potassium Chloride 92.6 L Carbon Dioxide 19 L BUN 24 H Creatinine 0.6 L Glucose POC Glucose Lactic Acid Calcium 8.2 L Magnesium 1.40 L Iron TIBC Ferritin AST ALT Lactate Dehydrogenase 242 H Troponin T C-Reactive Protein 16.70 H Total Protein Albumin Cholesterol LDL Cholesterol Direct HDL Cholesterol Urine WBC (Auto) Vancomycin Trough Coronavirus (PCR) Crossmatch 07/05/19 07/05/19 07/05/19 10:11 16:15 17:54 WBC 46.4 H* RBC 2.77 L Hgb 7.2 L Hct 21.9 L MCV 79 L MCH 26 L MCHC RDW 19.0 H Plt Count Lymph % (Auto) [place] % (Auto) Lymph # [place] # Baso # Seg Neutrophils % Seg Neuts % (Manual) 82.0 H Lymphocytes % (Manual) 1.0 L Seg Neutrophils # Seg Neutrophils # Man 38.0 H Lymphocytes # (Manual) 0.5 L PT INR D-Dimer ABG pH ABG pO2 ABG HCO3 ABG O2 Saturation ABG Base Excess ABG Hemoglobin Oxyhemoglobin Sodium Potassium Chloride Carbon Dioxide BUN Creatinine Glucose POC Glucose 69 L Lactic Acid Calcium Magnesium Iron TIBC Ferritin AST ALT Lactate Dehydrogenase Troponin T C-Reactive Protein Total Protein Albumin Cholesterol LDL Cholesterol Direct HDL Cholesterol Urine WBC (Auto) Vancomycin Trough 23.2 H Coronavirus (PCR) Crossmatch 07/05/19 07/06/19 07/06/19 19:58 00:27 00:27 WBC RBC Hgb Hct MCV MCH MCHC RDW Plt Count Lymph % (Auto) [place] % (Auto) Lymph # [place] # Baso # Seg Neutrophils % Seg Neuts % (Manual) Lymphocytes % (Manual) Seg Neutrophils # Seg Neutrophils # Man Lymphocytes # (Manual) PT INR D-Dimer 1333.22 H ABG pH ABG pO2 ABG HCO3 ABG O2 Saturation ABG Base Excess ABG Hemoglobin Oxyhemoglobin Sodium 127 L Potassium Chloride Carbon Dioxide BUN Creatinine Glucose POC Glucose Lactic Acid Calcium Magnesium Iron TIBC Ferritin 977.1 H AST ALT Lactate Dehydrogenase Troponin T C-Reactive Protein Total Protein Albumin Cholesterol LDL Cholesterol Direct HDL Cholesterol Urine WBC (Auto) Vancomycin Trough Coronavirus (PCR) Crossmatch 07/06/19 07/06/19 07/06/19 00:27 02:00 02:56 WBC RBC Hgb Hct MCV MCH MCHC RDW Plt Count Lymph % (Auto) [place] % (Auto) Lymph # [place] # Baso # Seg Neutrophils % Seg Neuts % (Manual) Lymphocytes % (Manual) Seg Neutrophils # Seg Neutrophils # Man Lymphocytes # (Manual) PT INR D-Dimer ABG pH ABG pO2 70.3 L ABG HCO3 ABG O2 Saturation 94.8 L ABG Base Excess ABG Hemoglobin 8.0 L Oxyhemoglobin 93.2 L Sodium Potassium Chloride Carbon Dioxide BUN Creatinine Glucose POC Glucose 117 H Lactic Acid Calcium Magnesium Iron TIBC Ferritin AST ALT Lactate Dehydrogenase 236 H Troponin T C-Reactive Protein 22.90 H Total Protein Albumin Cholesterol LDL Cholesterol Direct HDL Cholesterol Urine WBC (Auto) Vancomycin Trough Coronavirus (PCR) Crossmatch 07/06/19 07/06/19 07/06/19 03:49 03:49 07:40 WBC 38.8 H RBC 2.51 L Hgb 6.7 L Hct 19.9 L* MCV 79 L MCH 27 L MCHC RDW 19.2 H Plt Count Lymph % (Auto) [place] % (Auto) Lymph # [place] # Baso # Seg Neutrophils % Seg Neuts % (Manual) 90.5 H Lymphocytes % (Manual) 1.0 L Seg Neutrophils # Seg Neutrophils # Man 35.1 H Lymphocytes # (Manual) 0.4 L PT INR D-Dimer ABG pH ABG pO2 ABG HCO3 ABG O2 Saturation ABG Base Excess ABG Hemoglobin Oxyhemoglobin Sodium 131 L Potassium Chloride 96.9 L Carbon Dioxide 18 L BUN 23 H Creatinine 0.5 L Glucose POC Glucose Lactic Acid Calcium 8.0 L Magnesium Iron TIBC Ferritin AST ALT Lactate Dehydrogenase Troponin T C-Reactive Protein Total Protein Albumin Cholesterol LDL Cholesterol Direct HDL Cholesterol Urine WBC (Auto) Vancomycin Trough Coronavirus (PCR) Crossmatch See Detail 07/06/19 07/06/19 07/06/19 12:38 14:39 20:00 WBC RBC Hgb Hct MCV MCH MCHC RDW Plt Count Lymph % (Auto) [place] % (Auto) Lymph # [place] # Baso # Seg Neutrophils % Seg Neuts % (Manual) Lymphocytes % (Manual) Seg Neutrophils # Seg Neutrophils # Man Lymphocytes # (Manual) PT INR D-Dimer ABG pH ABG pO2 ABG HCO3 ABG O2 Saturation ABG Base Excess ABG Hemoglobin Oxyhemoglobin Sodium Potassium Chloride Carbon Dioxide BUN Creatinine Glucose POC Glucose 112 H 111 H 140 H Lactic Acid Calcium Magnesium Iron TIBC Ferritin AST ALT Lactate Dehydrogenase Troponin T C-Reactive Protein Total Protein Albumin Cholesterol LDL Cholesterol Direct HDL Cholesterol Urine WBC (Auto) Vancomycin Trough Coronavirus (PCR) Crossmatch 07/06/19 07/06/19 07/07/19 22:43 22:56 02:20 WBC RBC Hgb 7.9 L Hct 23.1 L MCV MCH MCHC RDW Plt Count Lymph % (Auto) [place] % (Auto) Lymph # [place] # Baso # Seg Neutrophils % Seg Neuts % (Manual) Lymphocytes % (Manual) Seg Neutrophils # Seg Neutrophils # Man Lymphocytes # (Manual) PT INR D-Dimer ABG pH ABG pO2 ABG HCO3 ABG O2 Saturation ABG Base Excess ABG Hemoglobin Oxyhemoglobin Sodium Potassium Chloride Carbon Dioxide BUN Creatinine Glucose POC Glucose 122 H 149 H Lactic Acid Calcium Magnesium Iron TIBC Ferritin AST ALT Lactate Dehydrogenase Troponin T C-Reactive Protein Total Protein Albumin Cholesterol LDL Cholesterol Direct HDL Cholesterol Urine WBC (Auto) Vancomycin Trough Coronavirus (PCR) Crossmatch 07/07/19 07/07/19 07/07/19 04:35 05:27 05:34 WBC 23.1 H RBC 3.00 L Hgb 8.1 L Hct 24.2 L MCV 81 L MCH 27 L MCHC RDW 20.6 H Plt Count Lymph % (Auto) [place] % (Auto) Lymph # [place] # Baso # Seg Neutrophils % Seg Neuts % (Manual) 90.0 H Lymphocytes % (Manual) 2.0 L Seg Neutrophils # Seg Neutrophils # Man 20.8 H Lymphocytes # (Manual) 0.5 L PT INR D-Dimer ABG pH ABG pO2 65.8 L ABG HCO3 ABG O2 Saturation 92.2 L ABG Base Excess ABG Hemoglobin 8.3 L Oxyhemoglobin 90.6 L Sodium Potassium Chloride Carbon Dioxide BUN Creatinine Glucose POC Glucose 132 H Lactic Acid Calcium Magnesium Iron TIBC Ferritin AST ALT Lactate Dehydrogenase Troponin T C-Reactive Protein Total Protein Albumin Cholesterol LDL Cholesterol Direct HDL Cholesterol Urine WBC (Auto) Vancomycin Trough Coronavirus (PCR) Crossmatch 07/07/19 07/07/19 07/07/19 05:34 11:50 15:58 WBC RBC Hgb 8.1 L Hct 24.2 L MCV MCH MCHC RDW Plt Count Lymph % (Auto) [place] % (Auto) Lymph # [place] # Baso # Seg Neutrophils % Seg Neuts % (Manual) Lymphocytes % (Manual) Seg Neutrophils # Seg Neutrophils # Man Lymphocytes # (Manual) PT INR D-Dimer ABG pH ABG pO2 ABG HCO3 ABG O2 Saturation ABG Base Excess ABG Hemoglobin Oxyhemoglobin Sodium 135 L Potassium 3.3 L Chloride Carbon Dioxide 20 L BUN 27 H Creatinine 0.6 L Glucose 121 H POC Glucose 123 H Lactic Acid Calcium 8.0 L Magnesium Iron TIBC Ferritin AST ALT Lactate Dehydrogenase Troponin T C-Reactive Protein Total Protein Albumin Cholesterol LDL Cholesterol Direct HDL Cholesterol Urine WBC (Auto) Vancomycin Trough Coronavirus (PCR) Crossmatch 07/07/19 07/07/19 07/07/19 17:42 22:00 23:53 WBC RBC Hgb 8.0 L Hct 23.4 L MCV MCH MCHC RDW Plt Count Lymph % (Auto) [place] % (Auto) Lymph # [place] # Baso # Seg Neutrophils % Seg Neuts % (Manual) Lymphocytes % (Manual) Seg Neutrophils # Seg Neutrophils # Man Lymphocytes # (Manual) PT INR D-Dimer ABG pH ABG pO2 ABG HCO3 ABG O2 Saturation ABG Base Excess ABG Hemoglobin Oxyhemoglobin Sodium Potassium Chloride Carbon Dioxide BUN Creatinine Glucose POC Glucose 107 H 117 H Lactic Acid Calcium Magnesium Iron TIBC Ferritin AST ALT Lactate Dehydrogenase Troponin T C-Reactive Protein Total Protein Albumin Cholesterol LDL Cholesterol Direct HDL Cholesterol Urine WBC (Auto) Vancomycin Trough Coronavirus (PCR) Crossmatch 07/08/19 07/08/19 07/08/19 00:45 00:45 00:45 WBC RBC Hgb Hct MCV MCH MCHC RDW Plt Count Lymph % (Auto) [place] % (Auto) Lymph # [place] # Baso # Seg Neutrophils % Seg Neuts % (Manual) Lymphocytes % (Manual) Seg Neutrophils # Seg Neutrophils # Man Lymphocytes # (Manual) PT INR D-Dimer 1142.18 H ABG pH ABG pO2 ABG HCO3 ABG O2 Saturation ABG Base Excess ABG Hemoglobin Oxyhemoglobin Sodium Potassium Chloride Carbon Dioxide BUN Creatinine Glucose POC Glucose Lactic Acid Calcium Magnesium Iron TIBC Ferritin 839.0 H AST ALT Lactate Dehydrogenase 253 H Troponin T C-Reactive Protein 18.90 H Total Protein Albumin Cholesterol LDL Cholesterol Direct HDL Cholesterol Urine WBC (Auto) Vancomycin Trough Coronavirus (PCR) Crossmatch 07/08/19 07/08/19 07/08/19 04:30 05:11 12:02 WBC RBC Hgb Hct MCV MCH MCHC RDW Plt Count Lymph % (Auto) [place] % (Auto) Lymph # [place] # Baso # Seg Neutrophils % Seg Neuts % (Manual) Lymphocytes % (Manual) Seg Neutrophils # Seg Neutrophils # Man Lymphocytes # (Manual) PT INR D-Dimer ABG pH ABG pO2 66.0 L ABG HCO3 ABG O2 Saturation 92.3 L ABG Base Excess ABG Hemoglobin 7.7 L Oxyhemoglobin 90.7 L Sodium Potassium Chloride Carbon Dioxide BUN Creatinine Glucose POC Glucose 108 H 153 H Lactic Acid Calcium Magnesium Iron TIBC Ferritin AST ALT Lactate Dehydrogenase Troponin T C-Reactive Protein Total Protein Albumin Cholesterol LDL Cholesterol Direct HDL Cholesterol Urine WBC (Auto) Vancomycin Trough Coronavirus (PCR) Crossmatch 07/08/19 07/08/19 07/08/19 16:15 18:22 23:35 WBC RBC Hgb Hct MCV MCH MCHC RDW Plt Count Lymph % (Auto) [place] % (Auto) Lymph # [place] # Baso # Seg Neutrophils % Seg Neuts % (Manual) Lymphocytes % (Manual) Seg Neutrophils # Seg Neutrophils # Man Lymphocytes # (Manual) PT INR D-Dimer ABG pH ABG pO2 ABG HCO3 ABG O2 Saturation ABG Base Excess ABG Hemoglobin Oxyhemoglobin Sodium 134 L Potassium 3.3 L Chloride Carbon Dioxide 21 L BUN 27 H Creatinine 0.6 L Glucose 146 H POC Glucose 134 H 133 H Lactic Acid Calcium Magnesium Iron TIBC Ferritin AST ALT Lactate Dehydrogenase Troponin T C-Reactive Protein Total Protein Albumin Cholesterol LDL Cholesterol Direct HDL Cholesterol Urine WBC (Auto) Vancomycin Trough Coronavirus (PCR) Crossmatch 07/09/19 07/09/19 07/09/19 04:30 04:30 05:00 WBC 18.9 H RBC 2.77 L Hgb 7.4 L Hct 22.8 L MCV 82 L MCH 27 L MCHC RDW 20.9 H Plt Count 130 L Lymph % (Auto) [place] % (Auto) Lymph # [place] # Baso # Seg Neutrophils % Seg Neuts % (Manual) 84.0 H Lymphocytes % (Manual) 0 L Seg Neutrophils # Seg Neutrophils # Man 15.9 H Lymphocytes # (Manual) 0.0 L PT INR D-Dimer ABG pH ABG pO2 ABG HCO3 ABG O2 Saturation ABG Base Excess ABG Hemoglobin Oxyhemoglobin Sodium Potassium 3.1 L Chloride Carbon Dioxide BUN 26 H Creatinine 0.5 L Glucose 125 H POC Glucose 155 H Lactic Acid Calcium Magnesium Iron TIBC Ferritin AST ALT Lactate Dehydrogenase Troponin T C-Reactive Protein Total Protein Albumin Cholesterol LDL Cholesterol Direct HDL Cholesterol Urine WBC (Auto) Vancomycin Trough Coronavirus (PCR) Crossmatch 07/09/19 07/09/19 07/09/19 05:55 12:22 17:50 WBC RBC Hgb Hct MCV MCH MCHC RDW Plt Count Lymph % (Auto) [place] % (Auto) Lymph # [place] # Baso # Seg Neutrophils % Seg Neuts % (Manual) Lymphocytes % (Manual) Seg Neutrophils # Seg Neutrophils # Man Lymphocytes # (Manual) PT INR D-Dimer ABG pH ABG pO2 62.8 L ABG HCO3 ABG O2 Saturation ABG Base Excess ABG Hemoglobin 6.1 L Oxyhemoglobin 93.9 L Sodium Potassium Chloride Carbon Dioxide BUN Creatinine Glucose POC Glucose 115 H 133 H Lactic Acid Calcium Magnesium Iron TIBC Ferritin AST ALT Lactate Dehydrogenase Troponin T C-Reactive Protein Total Protein Albumin Cholesterol LDL Cholesterol Direct HDL Cholesterol Urine WBC (Auto) Vancomycin Trough Coronavirus (PCR) Crossmatch 07/10/19 07/10/19 07/10/19 00:38 04:00 04:00 WBC RBC Hgb Hct MCV MCH MCHC RDW Plt Count Lymph % (Auto) [place] % (Auto) Lymph # [place] # Baso # Seg Neutrophils % Seg Neuts % (Manual) Lymphocytes % (Manual) Seg Neutrophils # Seg Neutrophils # Man Lymphocytes # (Manual) PT INR D-Dimer ABG pH ABG pO2 ABG HCO3 ABG O2 Saturation ABG Base Excess ABG Hemoglobin Oxyhemoglobin Sodium Potassium Chloride 107.9 H Carbon Dioxide BUN 26 H Creatinine 0.4 L Glucose 137 H POC Glucose 122 H Lactic Acid Calcium Magnesium 1.50 L Iron TIBC Ferritin AST ALT Lactate Dehydrogenase 277 H Troponin T C-Reactive Protein 15.10 H Total Protein Albumin Cholesterol LDL Cholesterol Direct HDL Cholesterol Urine WBC (Auto) Vancomycin Trough Coronavirus (PCR) Crossmatch 07/10/19 07/10/19 07/10/19 04:07 05:21 17:25 WBC RBC Hgb Hct MCV MCH MCHC RDW Plt Count Lymph % (Auto) [place] % (Auto) Lymph # [place] # Baso # Seg Neutrophils % Seg Neuts % (Manual) Lymphocytes % (Manual) Seg Neutrophils # Seg Neutrophils # Man Lymphocytes # (Manual) PT INR D-Dimer ABG pH ABG pO2 65.6 L ABG HCO3 26.3 H ABG O2 Saturation ABG Base Excess ABG Hemoglobin 6.7 L Oxyhemoglobin Sodium Potassium Chloride Carbon Dioxide BUN Creatinine Glucose POC Glucose 144 H 113 H Lactic Acid Calcium Magnesium Iron TIBC Ferritin AST ALT Lactate Dehydrogenase Troponin T C-Reactive Protein Total Protein Albumin Cholesterol LDL Cholesterol Direct HDL Cholesterol Urine WBC (Auto) Vancomycin Trough Coronavirus (PCR) Crossmatch 07/11/19 07/11/19 07/11/19 00:07 05:14 05:25 WBC RBC Hgb Hct MCV MCH MCHC RDW Plt Count Lymph % (Auto) [place] % (Auto) Lymph # [place] # Baso # Seg Neutrophils % Seg Neuts % (Manual) Lymphocytes % (Manual) Seg Neutrophils # Seg Neutrophils # Man Lymphocytes # (Manual) PT INR D-Dimer ABG pH ABG pO2 ABG HCO3 ABG O2 Saturation ABG Base Excess ABG Hemoglobin 5.8 L Oxyhemoglobin Sodium Potassium Chloride 108.0 H Carbon Dioxide BUN 26 H Creatinine 0.4 L Glucose 110 H POC Glucose 121 H Lactic Acid Calcium Magnesium Iron TIBC Ferritin AST ALT Lactate Dehydrogenase Troponin T C-Reactive Protein Total Protein Albumin Cholesterol LDL Cholesterol Direct HDL Cholesterol Urine WBC (Auto) Vancomycin Trough Coronavirus (PCR) Crossmatch 07/11/19 07/11/19 07/11/19 12:27 18:00 23:42 WBC RBC Hgb Hct MCV MCH MCHC RDW Plt Count Lymph % (Auto) [place] % (Auto) Lymph # [place] # Baso # Seg Neutrophils % Seg Neuts % (Manual) Lymphocytes % (Manual) Seg Neutrophils # Seg Neutrophils # Man Lymphocytes # (Manual) PT INR D-Dimer ABG pH ABG pO2 ABG HCO3 ABG O2 Saturation ABG Base Excess ABG Hemoglobin Oxyhemoglobin Sodium Potassium Chloride Carbon Dioxide BUN Creatinine Glucose POC Glucose 158 H 141 H 142 H Lactic Acid Calcium Magnesium Iron TIBC Ferritin AST ALT Lactate Dehydrogenase Troponin T C-Reactive Protein Total Protein Albumin Cholesterol LDL Cholesterol Direct HDL Cholesterol Urine WBC (Auto) Vancomycin Trough Coronavirus (PCR) Crossmatch 07/12/19 07/12/19 07/12/19 04:46 04:46 05:23 WBC 23.6 H RBC 2.51 L Hgb 6.7 L Hct 20.8 L MCV 83 L MCH 27 L MCHC RDW 20.3 H Plt Count Lymph % (Auto) [place] % (Auto) Lymph # [place] # Baso # Seg Neutrophils % Seg Neuts % (Manual) 94.0 H Lymphocytes % (Manual) 4.0 L Seg Neutrophils # Seg Neutrophils # Man 22.2 H Lymphocytes # (Manual) 0.9 L PT INR D-Dimer ABG pH ABG pO2 ABG HCO3 ABG O2 Saturation ABG Base Excess ABG Hemoglobin Oxyhemoglobin Sodium Potassium Chloride 107.1 H Carbon Dioxide BUN 25 H Creatinine 0.4 L Glucose 122 H POC Glucose 118 H Lactic Acid Calcium Magnesium Iron TIBC Ferritin AST ALT Lactate Dehydrogenase Troponin T C-Reactive Protein Total Protein Albumin Cholesterol LDL Cholesterol Direct HDL Cholesterol Urine WBC (Auto) Vancomycin Trough Coronavirus (PCR) Crossmatch 07/12/19 07/12/19 07/12/19 08:49 11:36 18:15 WBC RBC Hgb Hct MCV MCH MCHC RDW Plt Count Lymph % (Auto) [place] % (Auto) Lymph # [place] # Baso # Seg Neutrophils % Seg Neuts % (Manual) Lymphocytes % (Manual) Seg Neutrophils # Seg Neutrophils # Man Lymphocytes # (Manual) PT INR D-Dimer ABG pH ABG pO2 ABG HCO3 ABG O2 Saturation ABG Base Excess ABG Hemoglobin Oxyhemoglobin Sodium Potassium Chloride Carbon Dioxide BUN Creatinine Glucose POC Glucose 124 H 110 H Lactic Acid Calcium Magnesium Iron TIBC Ferritin AST ALT Lactate Dehydrogenase Troponin T C-Reactive Protein Total Protein Albumin Cholesterol LDL Cholesterol Direct HDL Cholesterol Urine WBC (Auto) Vancomycin Trough Coronavirus (PCR) Crossmatch See Detail 07/12/19 07/13/19 07/13/19 23:16 05:26 06:50 WBC 23.9 H RBC 2.58 L Hgb 6.9 L Hct 21.5 L MCV 83 L MCH 27 L MCHC RDW 19.0 H Plt Count Lymph % (Auto) [place] % (Auto) Lymph # [place] # Baso # Seg Neutrophils % Seg Neuts % (Manual) 96.0 H Lymphocytes % (Manual) 3.0 L Seg Neutrophils # Seg Neutrophils # Man 22.9 H Lymphocytes # (Manual) 0.7 L PT INR D-Dimer ABG pH ABG pO2 ABG HCO3 ABG O2 Saturation ABG Base Excess ABG Hemoglobin Oxyhemoglobin Sodium Potassium Chloride Carbon Dioxide BUN Creatinine Glucose POC Glucose 108 H 126 H Lactic Acid Calcium Magnesium Iron TIBC Ferritin AST ALT Lactate Dehydrogenase Troponin T C-Reactive Protein Total Protein Albumin Cholesterol LDL Cholesterol Direct HDL Cholesterol Urine WBC (Auto) Vancomycin Trough Coronavirus (PCR) Crossmatch 07/13/19 07/13/19 07/13/19 06:50 12:38 18:05 WBC RBC Hgb Hct MCV MCH MCHC RDW Plt Count Lymph % (Auto) [place] % (Auto) Lymph # [place] # Baso # Seg Neutrophils % Seg Neuts % (Manual) Lymphocytes % (Manual) Seg Neutrophils # Seg Neutrophils # Man Lymphocytes # (Manual) PT INR D-Dimer ABG pH ABG pO2 ABG HCO3 ABG O2 Saturation ABG Base Excess ABG Hemoglobin Oxyhemoglobin Sodium Potassium Chloride Carbon Dioxide BUN 33 H Creatinine 0.5 L Glucose 136 H POC Glucose 164 H 145 H Lactic Acid Calcium Magnesium Iron TIBC Ferritin AST ALT Lactate Dehydrogenase Troponin T C-Reactive Protein Total Protein Albumin Cholesterol LDL Cholesterol Direct HDL Cholesterol Urine WBC (Auto) Vancomycin Trough Coronavirus (PCR) Crossmatch 07/13/19 07/14/19 07/14/19 18:30 00:21 04:40 WBC 22.9 H RBC 2.45 L Hgb 6.6 L Hct 21.1 L MCV MCH 27 L MCHC 31 L RDW 19.2 H Plt Count Lymph % (Auto) [place] % (Auto) Lymph # [place] # Baso # Seg Neutrophils % Seg Neuts % (Manual) 91.0 H Lymphocytes % (Manual) 7.0 L Seg Neutrophils # Seg Neutrophils # Man 20.8 H Lymphocytes # (Manual) PT INR D-Dimer ABG pH ABG pO2 58.1 L ABG HCO3 ABG O2 Saturation 88.7 L ABG Base Excess ABG Hemoglobin 7.8 L Oxyhemoglobin 86.8 L Sodium Potassium Chloride Carbon Dioxide BUN Creatinine Glucose POC Glucose 118 H Lactic Acid Calcium Magnesium Iron TIBC Ferritin AST ALT Lactate Dehydrogenase Troponin T C-Reactive Protein Total Protein Albumin Cholesterol LDL Cholesterol Direct HDL Cholesterol Urine WBC (Auto) Vancomycin Trough Coronavirus (PCR) Crossmatch 07/14/19 07/14/19 07/14/19 04:40 05:38 05:45 WBC RBC Hgb Hct MCV MCH MCHC RDW Plt Count Lymph % (Auto) [place] % (Auto) Lymph # [place] # Baso # Seg Neutrophils % Seg Neuts % (Manual) Lymphocytes % (Manual) Seg Neutrophils # Seg Neutrophils # Man Lymphocytes # (Manual) PT INR D-Dimer ABG pH 7.230 L ABG pO2 72.1 L ABG HCO3 ABG O2 Saturation 89.3 L ABG Base Excess -2.7 L ABG Hemoglobin 6.7 L Oxyhemoglobin 87.7 L Sodium Potassium Chloride 107.4 H Carbon Dioxide BUN 45 H Creatinine Glucose 101 H POC Glucose 154 H Lactic Acid Calcium Magnesium Iron TIBC Ferritin AST ALT Lactate Dehydrogenase Troponin T C-Reactive Protein Total Protein Albumin Cholesterol LDL Cholesterol Direct HDL Cholesterol Urine WBC (Auto) Vancomycin Trough Coronavirus (PCR) Crossmatch 07/14/19 07/14/19 07/14/19 12:25 18:20 19:01 WBC 22.4 H RBC 2.70 L Hgb 7.5 L Hct 23.3 L MCV MCH MCHC RDW 19.5 H Plt Count Lymph % (Auto) [place] % (Auto) Lymph # [place] # Baso # Seg Neutrophils % Seg Neuts % (Manual) Lymphocytes % (Manual) Seg Neutrophils # Seg Neutrophils # Man Lymphocytes # (Manual) PT INR D-Dimer ABG pH ABG pO2 ABG HCO3 ABG O2 Saturation ABG Base Excess ABG Hemoglobin Oxyhemoglobin Sodium Potassium Chloride Carbon Dioxide BUN Creatinine Glucose POC Glucose 136 H 131 H Lactic Acid Calcium Magnesium Iron TIBC Ferritin AST ALT Lactate Dehydrogenase Troponin T C-Reactive Protein Total Protein Albumin Cholesterol LDL Cholesterol Direct HDL Cholesterol Urine WBC (Auto) Vancomycin Trough Coronavirus (PCR) Crossmatch 07/15/19 07/15/19 07/15/19 00:17 04:35 05:18 WBC 20.6 H RBC 2.41 L Hgb 6.8 L Hct 20.7 L MCV MCH MCHC RDW 20.2 H Plt Count Lymph % (Auto) [place] % (Auto) Lymph # [place] # Baso # Seg Neutrophils % Seg Neuts % (Manual) 92.0 H Lymphocytes % (Manual) 5.0 L Seg Neutrophils # Seg Neutrophils # Man 19.0 H Lymphocytes # (Manual) 1.0 L PT INR D-Dimer ABG pH 7.342 L ABG pO2 ABG HCO3 ABG O2 Saturation ABG Base Excess -3.1 L ABG Hemoglobin 7.2 L Oxyhemoglobin 94.9 L Sodium Potassium Chloride Carbon Dioxide BUN Creatinine Glucose POC Glucose 116 H Lactic Acid Calcium Magnesium Iron TIBC Ferritin AST ALT Lactate Dehydrogenase Troponin T C-Reactive Protein Total Protein Albumin Cholesterol LDL Cholesterol Direct HDL Cholesterol Urine WBC (Auto) Vancomycin Trough Coronavirus (PCR) Crossmatch 07/15/19 07/15/19 07/15/19 05:18 05:57 11:28 WBC RBC Hgb Hct MCV MCH MCHC RDW Plt Count Lymph % (Auto) [place] % (Auto) Lymph # [place] # Baso # Seg Neutrophils % Seg Neuts % (Manual) Lymphocytes % (Manual) Seg Neutrophils # Seg Neutrophils # Man Lymphocytes # (Manual) PT INR D-Dimer ABG pH ABG pO2 ABG HCO3 ABG O2 Saturation ABG Base Excess ABG Hemoglobin Oxyhemoglobin Sodium Potassium Chloride Carbon Dioxide 20 L BUN 59 H Creatinine Glucose 140 H POC Glucose 139 H 117 H Lactic Acid Calcium Magnesium Iron TIBC Ferritin AST ALT Lactate Dehydrogenase Troponin T C-Reactive Protein Total Protein Albumin Cholesterol LDL Cholesterol Direct HDL Cholesterol Urine WBC (Auto) Vancomycin Trough Coronavirus (PCR) Crossmatch 07/15/19 07/16/19 07/16/19 18:13 00:06 03:43 WBC RBC Hgb Hct MCV MCH MCHC RDW Plt Count Lymph % (Auto) [place] % (Auto) Lymph # [place] # Baso # Seg Neutrophils % Seg Neuts % (Manual) Lymphocytes % (Manual) Seg Neutrophils # Seg Neutrophils # Man Lymphocytes # (Manual) PT INR D-Dimer ABG pH 7.344 L ABG pO2 68.6 L ABG HCO3 ABG O2 Saturation ABG Base Excess -3.5 L ABG Hemoglobin 6.1 L Oxyhemoglobin 93.3 L Sodium Potassium Chloride Carbon Dioxide BUN Creatinine Glucose POC Glucose 114 H 119 H Lactic Acid Calcium Magnesium Iron TIBC Ferritin AST ALT Lactate Dehydrogenase Troponin T C-Reactive Protein Total Protein Albumin Cholesterol LDL Cholesterol Direct HDL Cholesterol Urine WBC (Auto) Vancomycin Trough Coronavirus (PCR) Crossmatch 07/16/19 07/16/19 07/16/19 04:41 04:41 12:09 WBC 19.6 H RBC 2.81 L Hgb 7.7 L Hct 24.0 L MCV MCH 27 L MCHC RDW 19.4 H Plt Count 514 H Lymph % (Auto) 6.7 L [place] % (Auto) Lymph # [place] # 1.0 H Baso # Seg Neutrophils % 87.0 H Seg Neuts % (Manual) Lymphocytes % (Manual) Seg Neutrophils # 17.0 H Seg Neutrophils # Man Lymphocytes # (Manual) PT INR D-Dimer ABG pH ABG pO2 ABG HCO3 ABG O2 Saturation ABG Base Excess ABG Hemoglobin Oxyhemoglobin Sodium Potassium 5.9 H Chloride Carbon Dioxide 21 L BUN 73 H Creatinine 2.0 H Glucose POC Glucose 141 H Lactic Acid Calcium Magnesium Iron TIBC Ferritin AST ALT Lactate Dehydrogenase Troponin T C-Reactive Protein Total Protein Albumin Cholesterol LDL Cholesterol Direct HDL Cholesterol Urine WBC (Auto) Vancomycin Trough Coronavirus (PCR) Crossmatch 07/16/19 07/16/19 07/17/19 16:19 17:45 00:16 WBC RBC Hgb Hct MCV MCH MCHC RDW Plt Count Lymph % (Auto) [place] % (Auto) Lymph # [place] # Baso # Seg Neutrophils % Seg Neuts % (Manual) Lymphocytes % (Manual) Seg Neutrophils # Seg Neutrophils # Man Lymphocytes # (Manual) PT INR D-Dimer ABG pH ABG pO2 ABG HCO3 ABG O2 Saturation ABG Base Excess ABG Hemoglobin Oxyhemoglobin Sodium Potassium 5.1 H Chloride Carbon Dioxide 20 L BUN 72 H Creatinine 1.7 H Glucose 128 H POC Glucose 181 H 164 H Lactic Acid Calcium Magnesium Iron TIBC Ferritin AST ALT Lactate Dehydrogenase Troponin T C-Reactive Protein Total Protein Albumin Cholesterol LDL Cholesterol Direct HDL Cholesterol Urine WBC (Auto) Vancomycin Trough Coronavirus (PCR) Crossmatch 07/17/19 07/17/19 07/17/19 04:20 04:39 04:39 WBC 16.1 H RBC 2.92 L Hgb 8.0 L Hct 25.5 L MCV MCH MCHC 31 L RDW 19.7 H Plt Count 564 H Lymph % (Auto) 3.6 L [place] % (Auto) 7.4 H Lymph # 0.6 L [place] # 1.2 H Baso # Seg Neutrophils % 87.5 H Seg Neuts % (Manual) Lymphocytes % (Manual) Seg Neutrophils # 14.1 H Seg Neutrophils # Man Lymphocytes # (Manual) PT INR D-Dimer ABG pH 7.231 L ABG pO2 95.3 H ABG HCO3 ABG O2 Saturation ABG Base Excess -5.0 L ABG Hemoglobin 7.9 L Oxyhemoglobin 94.8 L Sodium Potassium Chloride 107.8 H Carbon Dioxide 21 L BUN 68 H Creatinine Glucose POC Glucose Lactic Acid Calcium Magnesium Iron TIBC Ferritin AST ALT Lactate Dehydrogenase Troponin T C-Reactive Protein Total Protein Albumin Cholesterol LDL Cholesterol Direct HDL Cholesterol Urine WBC (Auto) Vancomycin Trough Coronavirus (PCR) Crossmatch 07/17/19 07/17/19 07/17/19 05:28 12:11 18:48 WBC RBC Hgb Hct MCV MCH MCHC RDW Plt Count Lymph % (Auto) [place] % (Auto) Lymph # [place] # Baso # Seg Neutrophils % Seg Neuts % (Manual) Lymphocytes % (Manual) Seg Neutrophils # Seg Neutrophils # Man Lymphocytes # (Manual) PT INR D-Dimer ABG pH ABG pO2 ABG HCO3 ABG O2 Saturation ABG Base Excess ABG Hemoglobin Oxyhemoglobin Sodium Potassium Chloride Carbon Dioxide BUN Creatinine Glucose POC Glucose 121 H 125 H 174 H Lactic Acid Calcium Magnesium Iron TIBC Ferritin AST ALT Lactate Dehydrogenase Troponin T C-Reactive Protein Total Protein Albumin Cholesterol LDL Cholesterol Direct HDL Cholesterol Urine WBC (Auto) Vancomycin Trough Coronavirus (PCR) Crossmatch 07/17/19 07/17/19 07/18/19 19:55 23:57 02:30 WBC RBC Hgb Hct MCV MCH MCHC RDW Plt Count Lymph % (Auto) [place] % (Auto) Lymph # [place] # Baso # Seg Neutrophils % Seg Neuts % (Manual) Lymphocytes % (Manual) Seg Neutrophils # Seg Neutrophils # Man Lymphocytes # (Manual) PT INR D-Dimer ABG pH 7.344 L 7.294 L ABG pO2 78.5 L 119.2 H ABG HCO3 ABG O2 Saturation ABG Base Excess -3.3 L -2.6 L ABG Hemoglobin 8.6 L 8.1 L Oxyhemoglobin 94.8 L Sodium Potassium Chloride Carbon Dioxide BUN Creatinine Glucose POC Glucose 148 H Lactic Acid Calcium Magnesium Iron TIBC Ferritin AST ALT Lactate Dehydrogenase Troponin T C-Reactive Protein Total Protein Albumin Cholesterol LDL Cholesterol Direct HDL Cholesterol Urine WBC (Auto) Vancomycin Trough Coronavirus (PCR) Crossmatch 07/18/19 07/18/19 07/18/19 04:49 05:22 05:22 WBC 15.9 H RBC 3.00 L Hgb 8.1 L Hct 26.0 L MCV MCH 27 L MCHC 31 L RDW 19.4 H Plt Count 733 H Lymph % (Auto) 6.3 L [place] % (Auto) 7.4 H Lymph # 1.0 L [place] # 1.2 H Baso # 0.2 H Seg Neutrophils % 83.8 H Seg Neuts % (Manual) Lymphocytes % (Manual) Seg Neutrophils # 13.3 H Seg Neutrophils # Man Lymphocytes # (Manual) PT INR D-Dimer ABG pH ABG pO2 ABG HCO3 ABG O2 Saturation ABG Base Excess ABG Hemoglobin Oxyhemoglobin Sodium Potassium Chloride 110.6 H Carbon Dioxide BUN 61 H Creatinine Glucose 109 H POC Glucose 116 H Lactic Acid Calcium Magnesium Iron TIBC Ferritin AST ALT Lactate Dehydrogenase Troponin T C-Reactive Protein Total Protein Albumin Cholesterol LDL Cholesterol Direct HDL Cholesterol Urine WBC (Auto) Vancomycin Trough Coronavirus (PCR) Crossmatch 07/18/19 07/18/19 07/18/19 12:23 18:06 22:20 WBC RBC Hgb Hct MCV MCH MCHC RDW Plt Count Lymph % (Auto) [place] % (Auto) Lymph # [place] # Baso # Seg Neutrophils % Seg Neuts % (Manual) Lymphocytes % (Manual) Seg Neutrophils # Seg Neutrophils # Man Lymphocytes # (Manual) PT INR D-Dimer ABG pH 7.338 L ABG pO2 135.1 H ABG HCO3 ABG O2 Saturation ABG Base Excess ABG Hemoglobin 9.2 L Oxyhemoglobin Sodium Potassium Chloride Carbon Dioxide BUN Creatinine Glucose POC Glucose 114 H 113 H Lactic Acid Calcium Magnesium Iron TIBC Ferritin AST ALT Lactate Dehydrogenase Troponin T C-Reactive Protein Total Protein Albumin Cholesterol LDL Cholesterol Direct HDL Cholesterol Urine WBC (Auto) Vancomycin Trough Coronavirus (PCR) Crossmatch 07/18/19 07/19/19 07/19/19 23:33 03:45 05:18 WBC RBC Hgb Hct MCV MCH MCHC RDW Plt Count Lymph % (Auto) [place] % (Auto) Lymph # [place] # Baso # Seg Neutrophils % Seg Neuts % (Manual) Lymphocytes % (Manual) Seg Neutrophils # Seg Neutrophils # Man Lymphocytes # (Manual) PT INR D-Dimer ABG pH 7.342 L ABG pO2 95.0 H ABG HCO3 ABG O2 Saturation ABG Base Excess ABG Hemoglobin 8.5 L Oxyhemoglobin Sodium Potassium Chloride Carbon Dioxide BUN Creatinine Glucose POC Glucose 125 H 111 H Lactic Acid Calcium Magnesium Iron TIBC Ferritin AST ALT Lactate Dehydrogenase Troponin T C-Reactive Protein Total Protein Albumin Cholesterol LDL Cholesterol Direct HDL Cholesterol Urine WBC (Auto) Vancomycin Trough Coronavirus (PCR) Crossmatch 07/19/19 07/19/19 07/19/19 08:45 08:45 11:47 WBC 15.9 H RBC 3.31 L Hgb 9.1 L Hct 28.4 L MCV MCH 27 L MCHC RDW 19.1 H Plt Count 858 H Lymph % (Auto) 4.9 L [place] % (Auto) 8.1 H Lymph # 0.8 L [place] # 1.3 H Baso # Seg Neutrophils % 85.5 H Seg Neuts % (Manual) Lymphocytes % (Manual) Seg Neutrophils # 13.6 H Seg Neutrophils # Man Lymphocytes # (Manual) PT INR D-Dimer ABG pH ABG pO2 ABG HCO3 ABG O2 Saturation ABG Base Excess ABG Hemoglobin Oxyhemoglobin Sodium Potassium Chloride 111.6 H Carbon Dioxide BUN 50 H Creatinine 0.7 L Glucose 118 H POC Glucose 114 H Lactic Acid Calcium Magnesium Iron TIBC Ferritin AST ALT Lactate Dehydrogenase Troponin T C-Reactive Protein Total Protein Albumin Cholesterol LDL Cholesterol Direct HDL Cholesterol Urine WBC (Auto) Vancomycin Trough Coronavirus (PCR) Crossmatch 07/19/19 07/19/19 07/20/19 18:25 23:44 04:39 WBC RBC Hgb Hct MCV MCH MCHC RDW Plt Count Lymph % (Auto) [place] % (Auto) Lymph # [place] # Baso # Seg Neutrophils % Seg Neuts % (Manual) Lymphocytes % (Manual) Seg Neutrophils # Seg Neutrophils # Man Lymphocytes # (Manual) PT INR D-Dimer ABG pH ABG pO2 ABG HCO3 ABG O2 Saturation ABG Base Excess ABG Hemoglobin Oxyhemoglobin Sodium Potassium Chloride 110.3 H Carbon Dioxide BUN 44 H Creatinine 0.6 L Glucose 120 H POC Glucose 115 H 117 H Lactic Acid Calcium Magnesium Iron TIBC Ferritin AST ALT Lactate Dehydrogenase Troponin T C-Reactive Protein Total Protein Albumin Cholesterol LDL Cholesterol Direct HDL Cholesterol Urine WBC (Auto) Vancomycin Trough Coronavirus (PCR) Crossmatch 07/20/19 07/21/19 05:30 11:59 WBC RBC Hgb Hct MCV MCH MCHC RDW Plt Count Lymph % (Auto) [place] % (Auto) Lymph # [place] # Baso # Seg Neutrophils % Seg Neuts % (Manual) Lymphocytes % (Manual) Seg Neutrophils # Seg Neutrophils # Man Lymphocytes # (Manual) PT INR D-Dimer ABG pH ABG pO2 ABG HCO3 ABG O2 Saturation ABG Base Excess ABG Hemoglobin Oxyhemoglobin Sodium Potassium Chloride Carbon Dioxide BUN Creatinine Glucose POC Glucose 131 H 122 H Lactic Acid Calcium Magnesium Iron TIBC Ferritin AST ALT Lactate Dehydrogenase Troponin T C-Reactive Protein Total Protein Albumin Cholesterol LDL Cholesterol Direct HDL Cholesterol Urine WBC (Auto) Vancomycin Trough Coronavirus (PCR) Crossmatch Chest x-ray: pending Allied health notes reviewed: nursing
[2019-07-22] MEDS: fentaNYL DRIP Premix 2,000 MCG/100 ML BAG IV SCH ×3 (04:14→22:12)
[2019-07-22 06:09] LABS: Hematocrit 27.5 % (35.5-45.6); Hemoglobin 8.9 gm/dl (11.8-15.2); Mean Corpuscular HGB Conc 32 % (32-34); Mean Corpuscular Volume 86 fl (84-94); Monocytes # (Auto) 1.5 K/mm3 (0.0-0.8); Monocytes % (Auto) 12.2 % (0.0-7.3); Red Blood Count 3.19 M/mm3 (3.65-5.03); Red Cell Distribution Width 18.9 % (13.2-15.2)
[2019-07-22 06:19] LABS: BUN/Creatinine Ratio 58; Blood Urea Nitrogen 29 mg/dL (9-20); Calcium 9.5 mg/dL (8.4-10.2); Hemolysis Index 9
[2019-07-22 06:20] LABS: Platelet Count 1101 K/mm3 (140-440)
[2019-07-22 07:00] LABS: Anisocytosis 1+; Band Neutrophils # (Manual) 0.1 K/mm3; Basophils % (Manual) 0 % (0.0-1.8); Platelet Estimate Consistent w Auto; Total Cells Counted 100
[2019-07-22] MEDS: SODIUM HYPOCHLORITE, DAKIN'S 1/2 STRENGTH (0.25%) 473 ML TOPICAL SOLN TP SCH ×2 (09:19→21:07)
[2019-07-22] MEDS: FOLIC ACID 1 MG TAB PO SCH (09:19)
[2019-07-22] MEDS: levETIRAcetam 500 MG/5 ML ORAL LIQD FEEDTUBE SCH ×2 (09:19→21:07)
[2019-07-22] MEDS: FAMOTIDINE 20 MG TAB PO SCH ×2 (09:19→21:07)
[2019-07-22] MEDS: ASPIRIN 81 MG TAB CHEW PO SCH (09:19)
[2019-07-22] MEDS: DOCUSATE SODIUM 100 MG/10 ML ORAL LIQD PO SCH ×2 (09:19→21:07)
--- NOTE | 2019-07-22 09:56 | Progress Note ---
Assessment and Plan Assessment and plan: --COVid positive pneumonia with severe sepsis Received Plaquenil and cefepime, monitor off antibiotics ID following --Septic shock: On Levophed Persistent hypotension, titrate to systolic blood pressure more than 100 -- Acute respiratory Failure with Hypoxia Due to bilateral PNA with COVID 19 infection. On ventilatory support, unable to wean Pulmonary critical following --COPD with exacerbation Likely due to COVID-19 pneumonia Continue scheduled nebs --Anemia, Microcytic persistent s/p total 3 unit of PRBC, today Hb today 9.1 --Pressure Ulcers: POA buttocks, right lateral foot area wound and supportive care --Hyponatremia, resolved --DM type 2: Accu-Chek SCC tube feeding, insulin as needed --h/o HTN Essential, now hypotensive On Levophed --Seizure D/o/CVA/immobility/BIpolar D/o/SCZ Seizure precautions, antiepileptic medications --Severe PCM, TF supportive care, dietary following patient is DNR- Called and verified information Very poor prognosis, Recommend hospice 07/04: COVID +ve, start on plaquinil, called no answer 07/05: transfuse one unit PRBC, Hb dropped to ~6, called and updated 07/06; H&H stable, serum chemistry improved. On mechanical ventilation with high inflammatory markers. Continue Plaquenil and empiric antibiotics. ID following, prognosis remains guarded and extremely poor. 07/07: On mechanical ventilation with high inflammatory markers. Continue Plaquenil and empiric antibiotics. ID following, prognosis remains guarded and extremely poor. 07/08: Called today and verified the CODE STATUS. Patient remains DNR. He is still intubated, with poor prognosis. Continue to follow inflammatory markers. 07/09 wean off from vent as tolerated, completed empiric antibiotic and Plaquenil 07/10 wean off from vent as tolerated. poor prognosis 07/11 hb 6.7 today, transfuse one PRBC. wean off from vent as tolerated. poor prognosis 07/12 remains critically on vent. Hb 6.9 07/13 Hb dropped to 6.6, transfuse 1 unit of PRBC, remains on vent critically ill Hypotensive, fluid bolus, if no improvement start Levophed 07/14; remains anemic with hemoglobin of 6.8, received total 3 units of PRBC Additional 1 unit of PRBC today, stool for occult blood to rule out GI causes Started back on Levophed due to hypotension 07/15; patient remains critically ill, hypotensive on Levophed 07/16: Today remains intubated on vent, persistent hypotension on Levophed 07/17; clinically no change, pressor dependent[on Levophed] DNR status 07/18: Patient remains hypotensive requiring Levophed, intubated on vent Unable to wean, critically ill. DNR 07/20/2019 Patient remains hypotensive requiring Levophed, intubated on vent. Patient currently with AC mode ventilation, rate 20, tidal volume 500, FiO2 40% and PEEP 6. Patient is a poor prognosis and apparently was on hospice recently. 07/21/2019. Patient with PEG tube that was clogged yesterday. surgery evaluated the patient and noted Very long PEG tubing with thick material inside. The ent celsa tube was stripped and a large amount of formed tube feed was expressed. The tube was then flushed with sprite and flushed easily. Tube clamped. Patient currently with AC mode ventilation, rate 20, tidal volume 500, FiO2 40% and PEEP 6. Patient is a poor prognosis and apparently was on hospice recently. 07/22/2019. Patient currently with AC mode ventilation, rate 20, tidal volume 500, FiO2 30% and PEEP 6. Patient on sedation with fentanyl drip. Continue Levophed to maintain MAP greater than 65. Patient is a poor prognosis and apparently was on hospice recently. The high probability of a clinically significant, sudden or life threatening deterioration of the [respiratory, CVS, CORROSION CONTROL TECHNICIAN] system(s) required my full and direct attention, intervention and personal management. The aggregate critical care time was [31] minutes. This time is in addition to time spent performing reported procedures but includes the following: [x] Data Review and interpretation [x] Patient assessment and monitoring of vital signs [x] Documentation [x] Medication orders and management History Interval history: 69-year-old male patient with PMH of CVA with RHP, HTN, DM2, SCZ, Dementia, Alcohol use D/o, Seizure D/O, presents to the emergency department via EMS from home with progressive SOB and impending espiratory failure with an unresponsive . PT was intubated was admitted through emergency room to ICU treated for sepsis, b/l PNA, acute respiratory failure received antibiotics. Patient was tested positive for COVID19. Evaluated by ID , received antibiotics Plaquenil, and inflammatory markers were checked and followed. Patient was hypotensive requiring Levophed, continues to be hypotensive currently on Levophed, unable to wean remains intubated on ventilatory support, critically ill, DNR status however family wants full treatment. Hospitalist Physical - Constitutional Vitals: Temp Pulse Resp BP Pulse Ox 97.4 F L 117 H 20 111/57 99 07/22/19 08:00 07/22/19 08:00 07/22/19 06:00 07/22/19 08:00 07/22/19 08:00 General appearance: Present: no acute distress, well-nourished, other (Orally intubated on vent) - EENT Eyes: Present: PERRL, EOM intact ENT: hearing intact, clear oral mucosa, dentition normal - Neck Neck: Present: supple, normal ROM - Respiratory Respiratory effort: normal Respiratory: bilateral: CTA - Cardiovascular Rhythm: regular Heart Sounds: Present: S1 & S2. Absent: gallop, rub - Extremities Extremities: no ischemia, No edema, Full ROM - Abdominal General gastrointestinal: soft, non-tender, non-distended, normal bowel sounds - Integumentary Integumentary: Present: clear, warm, dry - Neurologic Neurologic: CNII-XII intact, moves all extremities Results - Labs CBC & Chem 7: 07/22/19 05:38 07/22/19 05:38 Labs: Laboratory Last Values WBC 12.6 K/mm3 (4.5-11.0) H 07/22/19 05:38 RBC 3.19 M/mm3 (3.65-5.03) L 07/22/19 05:38 Hgb 8.9 gm/dl (11.8-15.2) L 07/22/19 05:38 Hct 27.5 % (35.5-45.6) L 07/22/19 05:38 MCV 86 fl (84-94) 07/22/19 05:38 MCH 28 pg (28-32) 07/22/19 05:38 MCHC 32 % (32-34) 07/22/19 05:38 RDW 18.9 % (13.2-15.2) H 07/22/19 05:38 Plt Count 1101 K/mm3 (140-440) H* 07/22/19 05:38 Lymph % (Auto) 4.9 % (13.4-35.0) L 07/19/19 08:45 [place] % (Auto) 12.2 % (0.0-7.3) H 07/22/19 05:38 Eos % (Auto) 1.0 % (0.0-4.3) 07/19/19 08:45 Baso % (Auto) 0.5 % (0.0-1.8) 07/19/19 08:45 Lymph # 0.8 K/mm3 (1.2-5.4) L 07/19/19 08:45 [place] # 1.5 K/mm3 (0.0-0.8) H 07/22/19 05:38 Eos # 0.2 K/mm3 (0.0-0.4) 07/19/19 08:45 Baso # 0.1 K/mm3 (0.0-0.1) 07/19/19 08:45 Add Manual Diff Complete 07/22/19 05:38 Total Counted 100 07/22/19 05:38 Seg Neutrophils % 72.8 % (40.0-70.0) H 07/22/19 05:38 Seg Neuts % (Manual) 76.0 % (40.0-70.0) H 07/22/19 05:38 Band Neutrophils % 1.0 % 07/22/19 05:38 Lymphocytes % (Manual) 7.0 % (13.4-35.0) L 07/22/19 05:38 Reactive Lymphs % (Man) 0 % 07/22/19 05:38 Monocytes % (Manual) 14.0 % (0.0-7.3) H 07/22/19 05:38 Eosinophils % (Manual) 2.0 % (0.0-4.3) 07/22/19 05:38 Basophils % (Manual) 0 % (0.0-1.8) 07/22/19 05:38 Metamyelocytes % 0 % 07/22/19 05:38 Myelocytes % 0 % 07/22/19 05:38 Promyelocytes % 0 % 07/22/19 05:38 Blast Cells % 0 % 07/22/19 05:38 Nucleated RBC % 1.0 % (0.0-0.9) H 07/22/19 05:38 Seg Neutrophils # 9.2 K/mm3 (1.8-7.7) H 07/22/19 05:38 Seg Neutrophils # Man 9.6 K/mm3 (1.8-7.7) H 07/22/19 05:38 Band Neutrophils # 0.1 K/mm3 07/22/19 05:38 Lymphocytes # (Manual) 0.9 K/mm3 (1.2-5.4) L 07/22/19 05:38 Abs React Lymphs (Man) 0.0 K/mm3 07/22/19 05:38 Monocytes # (Manual) 1.8 K/mm3 (0.0-0.8) H 07/22/19 05:38 Eosinophils # (Manual) 0.3 K/mm3 (0.0-0.4) 07/22/19 05:38 Basophils # (Manual) 0.0 K/mm3 (0.0-0.1) 07/22/19 05:38 Metamyelocytes # 0.0 K/mm3 07/22/19 05:38 Myelocytes # 0.0 K/mm3 07/22/19 05:38 Promyelocytes # 0.0 K/mm3 07/22/19 05:38 Blast Cells # 0.0 K/mm3 07/22/19 05:38 WBC Morphology Not Reportable 07/22/19 05:38 Hypersegmented Neuts Not Reportable 07/22/19 05:38 Hyposegmented Neuts Not Reportable 07/22/19 05:38 Hypogranular Neuts Not Reportable 07/22/19 05:38 Smudge Cells Not Reportable 07/22/19 05:38 Toxic Granulation Not Reportable 07/22/19 05:38 Toxic Vacuolation Not Reportable 07/22/19 05:38 Dohle Bodies Not Reportable 07/22/19 05:38 Pelger-Huet Anomaly Not Reportable 07/22/19 05:38 Mendy Rods Not Reportable 07/22/19 05:38 Platelet Estimate Consistent w auto 07/22/19 05:38 Clumped Platelets Not Reportable 07/22/19 05:38 Plt Clumps, EDTA Not Reportable 07/22/19 05:38 Large Platelets Not Reportable 07/22/19 05:38 Giant Platelets Not Reportable 07/22/19 05:38 Platelet Satelliting Not Reportable 07/22/19 05:38 Plt Morphology Comment Not Reportable 07/22/19 05:38 RBC Morphology Not Reportable 07/22/19 05:38 Dimorphic RBCs Not Reportable 07/22/19 05:38 Polychromasia Not Reportable 07/22/19 05:38 Hypochromasia Not Reportable 07/22/19 05:38 Poikilocytosis Not Reportable 07/22/19 05:38 Anisocytosis 1+ 07/22/19 05:38 Microcytosis Not Reportable 07/22/19 05:38 Macrocytosis Not Reportable 07/22/19 05:38 Spherocytes Not Reportable 07/22/19 05:38 Pappenheimer Bodies Not Reportable 07/22/19 05:38 Sickle Cells Not Reportable 07/22/19 05:38 Target Cells Not Reportable 07/22/19 05:38 Tear Drop Cells Not Reportable 07/22/19 05:38 Ovalocytes Not Reportable 07/22/19 05:38 Helmet Cells Not Reportable 07/22/19 05:38 [place] Bodies Not Reportable 07/22/19 05:38 [place] Rings Not Reportable 07/22/19 05:38 [place] Cells Not Reportable 07/22/19 05:38 Bite Cells Not Reportable 07/22/19 05:38 Crenated Cell Not Reportable 07/22/19 05:38 Elliptocytes Not Reportable 07/22/19 05:38 Acanthocytes (Spur) Not Reportable 07/22/19 05:38 Rouleaux Not Reportable 07/22/19 05:38 Hemoglobin C Crystals Not Reportable 07/22/19 05:38 Schistocytes Not Reportable 07/22/19 05:38 Malaria parasites Not Reportable 07/22/19 05:38 Jeevan Bodies Not Reportable 07/22/19 05:38 Hem Pathologist Commnt No 07/22/19 05:38 PT 16.0 Sec. (12.2-14.9) H 07/03/19 22:20 INR 1.26 (0.87-1.13) H 07/03/19 22:20 D-Dimer 1142.18 ng/mlDDU (0-234) H 07/08/19 00:45 ABG pH 7.342 pH Units (7.350-7.450) L 07/19/19 03:45 ABG pCO2 45.2 mm Hg 07/19/19 03:45 ABG pO2 95.0 mm Hg (80.0-90.0) H 07/19/19 03:45 ABG HCO3 24.0 mmol/L (20.0-26.0) 07/19/19 03:45 ABG O2 Saturation 97.1 % (95.0-99.0) 07/19/19 03:45 ABG O2 Content 11.6 (0.0-44) 07/19/19 03:45 ABG Base Excess -1.8 mmol/L (-2.0-3.0) 07/19/19 03:45 ABG Hemoglobin 8.5 gm/dl (14.0-18.0) L 07/19/19 03:45 ABG Carboxyhemoglobin 1.2 % (0.0-5.0) 07/19/19 03:45 ABG Methemoglobin 0.4 % (0.0-1.5) 07/19/19 03:45 Oxyhemoglobin 95.5 % (95.0-99.0) 07/19/19 03:45 FiO2 50 % 07/19/19 03:45 Sodium 141 mmol/L (137-145) 07/22/19 05:38 Potassium 3.4 mmol/L (3.6-5.0) L 07/22/19 05:38 Chloride 106.4 mmol/L (98-107) 07/22/19 05:38 Carbon Dioxide 25 mmol/L (22-30) 07/22/19 05:38 Anion Gap 13 mmol/L 07/22/19 05:38 BUN 29 mg/dL (9-20) H 07/22/19 05:38 Creatinine 0.5 mg/dL (0.8-1.5) L 07/22/19 05:38 Estimated GFR > 60 ml/min 07/22/19 05:38 BUN/Creatinine Ratio 58 % 07/22/19 05:38 Glucose 80 mg/dL (75-100) 07/22/19 05:38 POC Glucose 89 (70-105) 07/22/19 04:47 Osmolality 268 Mosm/kg 07/05/19 04:00 Lactic Acid 3.30 mmol/L (0.7-2.0) H* 07/04/19 07:05 Uric Acid 7.2 mg/dL (3.5-7.6) 07/05/19 04:00 Calcium 9.5 mg/dL (8.4-10.2) 07/22/19 05:38 Phosphorus 3.60 mg/dL (2.5-4.5) 07/05/19 04:00 Magnesium 1.80 mg/dL (1.7-2.3) 07/11/19 05:14 Iron 9 ug/dL (49-181) L 07/04/19 07:05 TIBC 97 mcg/dL (250-450) L 07/04/19 07:05 Ferritin 839.0 ng/mL (13.0-400.0) H 07/08/19 00:45 Total Bilirubin 0.20 mg/dL (0.1-1.2) 07/04/19 07:05 AST 73 units/L (5-40) H 07/04/19 07:05 ALT 91 units/L (7-56) H 07/04/19 07:05 Alkaline Phosphatase 114 units/L (35-129) 07/04/19 07:05 Ammonia 35.0 umol/L (25-60) 07/03/19 23:58 Lactate Dehydrogenase 277 units/L (91-180) H 07/10/19 04:00 Troponin T 0.013 ng/mL (0.00-0.029) 07/04/19 07:05 C-Reactive Protein 15.10 mg/dL (0.00-1.30) H 07/10/19 04:00 Total Protein 5.5 g/dL (6.3-8.2) L 07/04/19 07:05 Albumin 2.0 g/dL (3.9-5) L 07/04/19 07:05 Albumin/Globulin Ratio 0.6 % 07/04/19 07:05 Triglycerides 33 mg/dL (2-149) 07/03/19 19:57 Cholesterol 47 mg/dL (50-199) L 07/03/19 19:57 LDL Cholesterol Direct 25 mg/dL (50-130) L 07/03/19 19:57 HDL Cholesterol 20 mg/dL (40-59) L 07/03/19 19:57 Cholesterol/HDL Ratio 2.35 % 07/03/19 19:57 Procalcitonin 1.25 ng/mL (<0.15) 07/10/19 04:00 TSH 2.170 mlU/mL (0.270-4.200) 07/03/19 22:20 Total Cortisol 28.0 mcg/dL () 07/05/19 10:11 Urine Color Naima (Yellow) 07/03/19 21:13 Urine Turbidity Cloudy (Clear) 07/03/19 21:13 Urine pH 5.0 (5.0-7.0) 07/03/19 21:13 Ur Specific [place] 1.016 (1.003-1.030) 07/03/19 21:13 Urine Protein 30 mg/dl mg/dL (Negative) 07/03/19 21:13 Urine Glucose (UA) Neg mg/dL (Negative) 07/03/19 21:13 Urine Ketones Neg mg/dL (Negative) 07/03/19 21:13 Urine Blood Neg (Negative) 07/03/19 21:13 Urine Nitrite Neg (Negative) 07/03/19 21:13 Urine Bilirubin Neg (Negative) 07/03/19 21:13 Urine Urobilinogen 2.0 mg/dL (<2.0) 07/03/19 21:13 Ur Leukocyte Esterase Neg (Negative) 07/03/19 21:13 Urine WBC (Auto) 12.0 /HPF (0.0-6.0) H 07/03/19 21:13 Urine RBC (Auto) 6.0 /HPF (0.0-6.0) 07/03/19 21:13 U Epithel Cells (Auto) 1.0 /HPF (0-13.0) 07/03/19 21:13 Urine Bacteria (Auto) 1+ /HPF (Negative) 07/03/19 21:13 Urine WBC Clumps Few /HPF 07/03/19 21:13 Urine Mucus Few /HPF 07/03/19 21:13 Urine Osmolality 293 Mosm/kg 07/05/19 08:15 Vancomycin Trough 23.2 ug/mL (5.0-20.0) H 07/05/19 17:54 Urine Opiates Screen Presumptive negative 07/03/19 21:13 Urine Methadone Screen Presumptive negative 07/03/19 21:13 Ur Barbiturates Screen Presumptive negative 07/03/19 21:13 Ur Phencyclidine Scrn Presumptive negative 07/03/19 21:13 Ur Amphetamines Screen Presumptive negative 07/03/19 21:13 U Benzodiazepines Scrn Presumptive negative 07/03/19 21:13 Urine Cocaine Screen Presumptive negative 07/03/19 21:13 U Marijuana (THC) Screen Presumptive negative 07/03/19 21:13 Drugs of Abuse Note Disclamer 07/03/19 21:13 Plasma/Serum Alcohol < 0.01 % (0-0.07) 07/03/19 23:58 Coronavirus (PCR) Positive (Negative) A 07/04/19 10:09 Blood Type B POSITIVE 07/12/19 08:49 Antibody Screen Negative 07/12/19 08:49 Crossmatch See Detail 07/12/19 08:49 Microbiology: Microbiology 07/03/19 21:13 Urine,Clean Catch Urine Culture - Final NO GROWTH AFTER 48 HOURS Wright/IV: Voiding Method Indwelling Catheter IV Catheter Type [Left Upper Mid-line arm] IV Catheter Type [Right INT / Saline Lock Forearm] IV Catheter Type [Right Hand] INT / Saline Lock IV Catheter Type [Right CVL Femoral] IV Catheter Type [Left INT / Saline Lock External Jugular] Active Medications - Current Medications Current Medications: Generic Name Dose Route Start Last Admin Trade Name Freq PRN Reason Stop Dose Admin Acetaminophen 650 mg 07/04/19 04:24 Tylenol HI Q6H PRN Pain MILD(1-3)/Fever >100.5/MURO Acetaminophen 650 mg 07/10/19 04:00 07/15/19 20:35 Tylenol PO 650 mg Q6HR PRN Administration Pain, Mild (1-3) FEVER Lipase/Protease/Amylase 1 each 07/04/19 10:04 07/20/19 06:15 Pancrewhitley [place] 10,500 Unit FEEDTUBE 1 each PRN PRN Administration For Clogged Feeding Tube Aspirin 81 mg 07/05/19 10:00 07/22/19 09:19 Baby Aspirin PO 81 mg QDAY TAMMIE Administration Dextrose 50 ml 07/04/19 06:54 D50w (25gm) Syringe IV Q30MIN PRN Hypoglycemia Protocol Docusate Sodium 100 mg 07/10/19 10:00 07/22/19 09:19 Colace PO 100 mg BID TAMMIE Administration Famotidine 20 mg 07/17/19 10:00 07/22/19 09:19 Pepcid PO 20 mg BID TAMMIE Administration Fentanyl 50 mcg 07/21/19 15:18 Sublimaze IV Q10MIN PRN ANALGESIA Folic Acid 1 mg 07/05/19 10:00 07/22/19 09:19 Folvite PO 1 mg QDAY TAMMIE Administration Hydrophilic Ointment 1 applic 07/03/19 19:56 07/05/19 17:42 Vaseline Lip Therapy TP 1 applic Q2HR PRN Administration Dry Lips Norepinephrine 4 mg in 250 mls @ 7.5 mls/hr 07/03/19 23:00 07/20/19 01:00 Levophed Drip 4 Mg/Ns 250 Ml IV Infused TITR TAMMIE Titration Protocol 2 MCG/MIN Fentanyl Citrate 2,000 mcg in 100 mls @ 4.75 mls/hr 07/21/19 16:00 07/22/19 04:14 Fentanyl Drip Premix IV 3 mcg/kg/hr TITR TAMMIE 14.25 mls/hr Administration Protocol 1 MCG/KG/HR Insulin Human Lispro 0 unit 07/07/19 12:00 07/21/19 19:03 Humalog SUB-Q Not Given Q6HR [facility] Protocol Levetiracetam 750 mg 07/06/19 11:00 07/22/19 09:19 Keppra FEEDTUBE 750 mg Q12HR TAMMIE Administration Metoprolol Tartrate 5 mg 07/12/19 15:08 07/12/19 15:30 Metoprolol IV 5 mg Q6HR PRN Administration Tachyarrhythmias Multi-Ingred Cream/Lotion/Oil/Oint 1 applic 07/03/19 19:56 07/05/19 13:19 Artificial Tears Ophth Oint OU 1 applic Q4HR PRN Administration Dry Eye(s) Naloxone HCl 0.1 mg 07/04/19 04:24 Naloxone IV Q2MIN PRN Res Rate </= 8 or 02 SAT < 92% Oxycodone/Acetaminophen 1 tab 07/19/19 14:17 Percocet 5/325 PO Q4H PRN Pain, Moderate (4-6) Potassium Chloride 40 meq 07/22/19 10:00 Potassium Chloride FEEDTUBE 07/22/19 10:01 ONCE ONE Scopolamine 1 each 07/10/19 11:00 07/19/19 12:04 Transderm-Scop TD 1 each Q3D TAMMIE Administration Simple Syrup 15 ml 07/04/19 10:04 07/10/19 21:56 Simple Syrup FEEDTUBE 15 ml PRN PRN Administration Hypoglycemia Simple Syrup 30 ml 07/04/19 10:04 Simple Syrup FEEDTUBE PRN PRN Hypoglycemia Sodium Bicarbonate 325 mg 07/04/19 10:04 07/20/19 10:20 Sodium Bicarbonate FEEDTUBE 325 mg PRN PRN Administration For Clogged Feeding Tube Sodium Chloride 10 ml 07/04/19 10:00 07/22/19 09:20 Sodium Chloride Flush Syringe 10 Ml IV 10 ml BID TAMMIE Administration Sodium Chloride 10 ml 07/04/19 04:24 Sodium Chloride Flush Syringe 10 Ml IV PRN PRN LINE FLUSH Sodium Hypochlorite 1 applic 07/10/19 14:00 07/22/19 09:19 Dakin's Half Strength TP 1 applicatio BID TAMMIE Administration Nutrition/Malnutrition Assess - Dietary Evaluation Nutrition/Malnutrition Findings: Nutrition Notes Start: 07/04/19 09:17 Freq: Status: Active Protocol: Document 07/18/19 13:34 LM (Rec: 07/18/19 13:41 LM [id number]) Nutrition Notes Initial or Follow up Reassessment Current Diagnosis Acute Kidney Injury,COPD, Decubitus(Pressure Ulcer), Diabetes,Hypertension Other Pertinent Diagnosis COVID-19 (+), pneu, seizures, schizophrenia, Buttock and R foot PU, Current Diet Nepro 1.8 at 45ml/hr Labs/Tests Reviewed Pertinent Medications Levophed Height 5 ft 11 in Weight 84 kg [place] Body Weight (kg) 78.18 BMI 25.8 Weight Status Overweight Subjective/Other Information PEG tube was leaking per RN notes yesterday. RN stated he is now tolerating TF at goal. Percent of energy/protein needs met: 100%/80% Burn Absent Trauma Absent Current % PO Negligible Minimum of two criteria No physical signs of malnutrition #2 Nutrition Diagnosis Increased nutrient needs ( specify in comment below) Diagnosis Progress(for reassessment Continues documentation) #1 Nutrition Diagnosis Inadequate oral intake Diagnosis Progress(for reassessment Continues documentation) Is patient on ventilator? Yes Is Patient Ambulatory and/or Out of Bed No REE-([place]-confined to bed) [phone] Additional Notes Protein: 109-182g (1.2-2g/kg) Fluid: 1 ml/kcal or per MD Nutrition Intervention Change Diet Order: TF Nutrition Support: Nepro 1.8 at 45ml/hr Flush 200ml q4h Kcal 1,944 Protein (gm) 87 Fluid (mL) 785 Goal #1 TF tolerance Goal #2 Meet at least 75% of energy and protein needs Anticipated Discharge Needs: unable to determine at this time Follow-Up By: 07/23/19 Additional Comments F/U for TF tolerance
[2019-07-22] MEDS ORDERED: POTASSIUM CHLORIDE 20 MEQ PACKET FEEDTUBE ONE ×2 (10:00→14:00)
[2019-07-22] MEDS: SCOPOLAMINE TRANSDERMAL PATCH 72 HR TD SCH (10:30)
[2019-07-22] MEDS: INSULIN LISPRO 100 UNIT/ML SUB-Q SCH ×2 (13:00→18:39)
--- NOTE | 2019-07-22 14:16 | Progress Note ---
Assessment and Plan Acute hypoxemic respiratory failure on MVS Severe sepsis with Shock. Bilateral Pneumonia. PUI coronavirus-19 infection. Acute possibly on chronic encephalopathy. Oropharyngeal dysphagia. Anemia. Decubitus ulcers Diabetes type 2. Hypertension. Leukocytosis. Anemia that is microcytic. Elevated serum transaminases. [id number] metabolic acidosis. Lactic acidosis. Severe protein-calorie malnutrition - repeat ABG prn at this time; still acidotic - continue fentanyl gtt for pain control / sedation - continue to wean supplemental oxygen for target O2 sat's > 90% acutely - continue daily SAT's and SBT assessment as tolerated - VAP bundle addressed - continue lung protective strategies - continue bronchodilators with pulmonary hygiene per RT - wean per pulmonary driven protocols otherwise - prn Levophed for target MAP > 65 mmHg - continue airborne and contact COVID-19 precautions - COVID-19 test positive - complete anti-infectives and de-escalate per ID recommendations - continue wound care per WCT - sedation prn for target RASS 0 to -1 - accuchecks with glycemic control per SSI (While critically ill target blood glucose of 140-180 mg/dL; avoid hypoglycemia) - to avoid benzodiazepine's, reduce the possibility of delirium - prn analgesia per CPOT score - Maintenance of sleep-wake cycle, avoid delirium - continue enteral nutritional support at goal rate as tolerated - G.I. & VTE prophylaxis - PT/OT/ROM exercises - continue mobility protocols for pressure ulcer prophylaxis - Monitor hemodynamics closely - continue other care per attending / other consultants - discharge planning ongoing concurrently .... Re-evaluate in am & prn CONDITION: CRITICAL PROGNOSIS: GUARDED CODE STATUS: FULL CODE The high probability of a clinically significant, sudden or life-threatening deterioration of the [respiratory & cardiovascular] system(s) required my full and direct attention, intervention and personal management. The aggregate critical care time was [31] minutes without overlap. Time includes spent on; [x] Data Review and interpretation [x] Patient assessment and monitoring of vital signs [x] Documentation [x] Medication orders and management Subjective Date of service: 07/22/19 Principal diagnosis: Bilateral pneumonia, severe sepsis with septic shock, encephalopathy Interval history: Patient is seen today for: Ac hypoxemic Resp failure on MVS; Severe sepsis with Shock; Ivan. Pneumonia; PUI coronavirus-19 infection. Seen and examined at bedside; 24hour events reviewed; nursing and respiratory care staff consulted; no adverse overnight events reported to me; resting in bed; remains on MVS; less agitated on fentanyl drip; still not tolerating weaning well; no emesis or overt aspiration today; no high grade fevers Objective Vital Signs - 12hr 07/22/19 07/22/19 07/22/19 02:30 02:45 03:00 Temperature Pulse Rate 116 H 117 H 116 H Pulse Rate [ From Monitor] Pulse Rate [ Left Dorsalis Pedis] Pulse Rate [ Left Radial] Pulse Rate [ Right Dorsalis Pedis] Pulse Rate [ Right Radial] Respiratory 20 20 20 Rate Blood Pressure 113/58 117/62 117/59 O2 Sat by Pulse 100 100 99 Oximetry 07/22/19 07/22/19 07/22/19 03:15 03:30 03:46 Temperature Pulse Rate 114 H 114 H 113 H Pulse Rate [ From Monitor] Pulse Rate [ Left Dorsalis Pedis] Pulse Rate [ Left Radial] Pulse Rate [ Right Dorsalis Pedis] Pulse Rate [ Right Radial] Respiratory 20 20 20 Rate Blood Pressure 118/63 118/63 116/62 O2 Sat by Pulse 99 99 99 Oximetry 07/22/19 07/22/19 07/22/19 04:00 04:15 04:30 Temperature 98.3 F Pulse Rate 113 H 114 H 115 H Pulse Rate [ 115 H From Monitor] Pulse Rate [ 115 H Left Dorsalis Pedis] Pulse Rate [ 115 H Left Radial] Pulse Rate [ 115 H Right Dorsalis Pedis] Pulse Rate [ 115 H Right Radial] Respiratory 20 21 20 Rate Blood Pressure 122/66 114/58 105/55 O2 Sat by Pulse 99 99 99 Oximetry 07/22/19 07/22/19 07/22/19 04:46 04:49 05:00 Temperature Pulse Rate 116 H 113 H 115 H Pulse Rate [ From Monitor] Pulse Rate [ Left Dorsalis Pedis] Pulse Rate [ Left Radial] Pulse Rate [ Right Dorsalis Pedis] Pulse Rate [ Right Radial] Respiratory 20 20 Rate Blood Pressure 105/55 108/61 112/62 O2 Sat by Pulse 100 100 100 Oximetry 07/22/19 07/22/19 07/22/19 05:15 05:30 05:45 Temperature Pulse Rate 115 H 114 H 114 H Pulse Rate [ From Monitor] Pulse Rate [ Left Dorsalis Pedis] Pulse Rate [ Left Radial] Pulse Rate [ Right Dorsalis Pedis] Pulse Rate [ Right Radial] Respiratory 20 20 20 Rate Blood Pressure 116/62 111/62 113/67 O2 Sat by Pulse 100 99 99 Oximetry 07/22/19 07/22/19 07/22/19 06:00 06:16 06:30 Temperature Pulse Rate 114 H 114 H 115 H Pulse Rate [ From Monitor] Pulse Rate [ Left Dorsalis Pedis] Pulse Rate [ Left Radial] Pulse Rate [ Right Dorsalis Pedis] Pulse Rate [ Right Radial] Respiratory 20 20 20 Rate Blood Pressure 108/62 117/62 108/64 O2 Sat by Pulse 100 100 100 Oximetry 07/22/19 07/22/19 07/22/19 06:45 07:00 07:15 Temperature Pulse Rate 116 H 118 H 117 H Pulse Rate [ From Monitor] Pulse Rate [ Left Dorsalis Pedis] Pulse Rate [ Left Radial] Pulse Rate [ Right Dorsalis Pedis] Pulse Rate [ Right Radial] Respiratory 20 20 20 Rate Blood Pressure 114/63 114/63 121/65 O2 Sat by Pulse 100 100 100 Oximetry 07/22/19 07/22/19 07/22/19 07:30 07:45 08:00 Temperature 97.4 F L Pulse Rate 115 H 115 H 120 H Pulse Rate [ 113 H From Monitor] Pulse Rate [ Left Dorsalis Pedis] Pulse Rate [ Left Radial] Pulse Rate [ Right Dorsalis Pedis] Pulse Rate [ Right Radial] Respiratory 20 20 20 Rate Blood Pressure 115/65 116/64 114/66 O2 Sat by Pulse 100 100 99 Oximetry 07/22/19 07/22/19 07/22/19 08:15 08:30 08:45 Temperature Pulse Rate 115 H 116 H 117 H Pulse Rate [ From Monitor] Pulse Rate [ Left Dorsalis Pedis] Pulse Rate [ Left Radial] Pulse Rate [ Right Dorsalis Pedis] Pulse Rate [ Right Radial] Respiratory 20 20 20 Rate Blood Pressure 115/62 103/58 111/57 O2 Sat by Pulse 99 99 99 Oximetry 07/22/19 07/22/19 07/22/19 09:00 09:15 09:30 Temperature Pulse Rate 115 H 115 H 115 H Pulse Rate [ From Monitor] Pulse Rate [ Left Dorsalis Pedis] Pulse Rate [ Left Radial] Pulse Rate [ Right Dorsalis Pedis] Pulse Rate [ Right Radial] Respiratory 20 20 20 Rate Blood Pressure 101/58 107/57 110/57 O2 Sat by Pulse 98 98 98 Oximetry 07/22/19 07/22/19 07/22/19 09:45 10:00 10:16 Temperature Pulse Rate 116 H 117 H 117 H Pulse Rate [ From Monitor] Pulse Rate [ Left Dorsalis Pedis] Pulse Rate [ Left Radial] Pulse Rate [ Right Dorsalis Pedis] Pulse Rate [ Right Radial] Respiratory 20 20 19 Rate Blood Pressure 113/63 115/63 116/65 O2 Sat by Pulse 98 99 99 Oximetry 07/22/19 07/22/19 07/22/19 10:30 10:46 11:00 Temperature Pulse Rate 118 H 118 H 118 H Pulse Rate [ From Monitor] Pulse Rate [ Left Dorsalis Pedis] Pulse Rate [ Left Radial] Pulse Rate [ Right Dorsalis Pedis] Pulse Rate [ Right Radial] Respiratory 20 20 21 Rate Blood Pressure 119/64 110/70 120/62 O2 Sat by Pulse 99 99 99 Oximetry 07/22/19 07/22/19 07/22/19 11:15 11:30 11:46 Temperature Pulse Rate 120 H 121 H 121 H Pulse Rate [ From Monitor] Pulse Rate [ Left Dorsalis Pedis] Pulse Rate [ Left Radial] Pulse Rate [ Right Dorsalis Pedis] Pulse Rate [ Right Radial] Respiratory 20 20 20 Rate Blood Pressure 117/68 107/61 114/61 O2 Sat by Pulse 99 99 100 Oximetry 07/22/19 07/22/19 07/22/19 12:00 12:15 12:21 Temperature 97.6 F Pulse Rate 121 H 123 H 121 H Pulse Rate [ 121 H From Monitor] Pulse Rate [ Left Dorsalis Pedis] Pulse Rate [ Left Radial] Pulse Rate [ Right Dorsalis Pedis] Pulse Rate [ Right Radial] Respiratory 20 21 Rate Blood Pressure 117/64 126/65 107/61 O2 Sat by Pulse 99 100 99 Oximetry 07/22/19 07/22/19 07/22/19 12:30 12:45 13:00 Temperature Pulse Rate 123 H 123 H 124 H Pulse Rate [ From Monitor] Pulse Rate [ Left Dorsalis Pedis] Pulse Rate [ Left Radial] Pulse Rate [ Right Dorsalis Pedis] Pulse Rate [ Right Radial] Respiratory 19 20 20 Rate Blood Pressure 122/68 118/66 124/65 O2 Sat by Pulse 100 100 100 Oximetry 07/22/19 07/22/19 13:15 13:30 Temperature Pulse Rate 122 H 123 H Pulse Rate [ From Monitor] Pulse Rate [ Left Dorsalis Pedis] Pulse Rate [ Left Radial] Pulse Rate [ Right Dorsalis Pedis] Pulse Rate [ Right Radial] Respiratory 21 20 Rate Blood Pressure 121/65 121/67 O2 Sat by Pulse 100 100 Oximetry Constitutional: appears uncomfortable, other (eelderly and chronically ill looking AAM, normocep[krystina;ic with mildly increased respiratory effort at rest) Eyes: non-icteric ENT: oropharynx moist, other (ETT 24 cm Pawan) Neck: supple, no lymphadenopathy, no JVD Effort: very labored Ascultation: Bilateral: diminished breath sounds, rhonchi Percussion: Bilateral: not dull Cardiovascular: regular rate and rhythm Gastrointestinal: normoactive bowel sounds, soft, non-tender, non-distended, other (+ PEG tube with mild TF leakage) Integumentary: decubitus ulcer Extremities: no cyanosis, no edema, pink and warm, pulses normal Neurologic: unable to assess Psychiatric: other (Unable to assess re: AMS) CBC and BMP: 07/25/19 05:14 07/25/19 05:14 ABG, PT/INR, D-dimer: ABG ABG pH 7.342 pH Units (7.350-7.450) L 07/19/19 03:45 ABG pCO2 45.2 mm Hg 07/19/19 03:45 ABG pO2 95.0 mm Hg (80.0-90.0) H 07/19/19 03:45 ABG O2 Saturation 97.1 % (95.0-99.0) 07/19/19 03:45 PT/INR, D-dimer PT 16.0 Sec. (12.2-14.9) H 07/03/19 22:20 INR 1.26 (0.87-1.13) H 07/03/19 22:20 D-Dimer 1142.18 ng/mlDDU (0-234) H 07/08/19 00:45 Abnormal lab findings: Abnormal Labs 07/03/19 07/03/19 07/03/19 19:57 21:10 21:13 WBC RBC Hgb Hct MCV MCH MCHC RDW Plt Count Lymph % (Auto) [place] % (Auto) Lymph # [place] # Baso # Seg Neutrophils % Seg Neuts % (Manual) Lymphocytes % (Manual) Monocytes % (Manual) Nucleated RBC % Seg Neutrophils # Seg Neutrophils # Man Lymphocytes # (Manual) Monocytes # (Manual) PT INR D-Dimer ABG pH 7.238 L ABG pO2 210.8 H ABG HCO3 15.4 L ABG O2 Saturation 99.2 H ABG Base Excess -11.1 L ABG Hemoglobin 8.0 L Oxyhemoglobin Sodium 124 L Potassium Chloride 92.9 L Carbon Dioxide 10 L BUN 23 H Creatinine 0.5 L Glucose 118 H POC Glucose Lactic Acid Calcium 7.0 L Magnesium Iron TIBC Ferritin AST 70 H ALT 88 H Lactate Dehydrogenase Troponin T 0.032 H C-Reactive Protein Total Protein 5.0 L Albumin 1.8 L Cholesterol 47 L LDL Cholesterol Direct 25 L HDL Cholesterol 20 L Urine WBC (Auto) 12.0 H Vancomycin Trough Coronavirus (PCR) Crossmatch 07/03/19 07/03/19 07/03/19 22:20 22:20 22:20 WBC 30.5 H RBC 2.96 L Hgb 7.7 L Hct 23.9 L MCV 81 L MCH 26 L MCHC RDW 18.6 H Plt Count 459 H Lymph % (Auto) [place] % (Auto) Lymph # [place] # Baso # Seg Neutrophils % Seg Neuts % (Manual) 93.0 H Lymphocytes % (Manual) 0.5 L Monocytes % (Manual) Nucleated RBC % Seg Neutrophils # Seg Neutrophils # Man 28.4 H Lymphocytes # (Manual) 0.2 L Monocytes # (Manual) PT 16.0 H INR 1.26 H D-Dimer ABG pH ABG pO2 ABG HCO3 ABG O2 Saturation ABG Base Excess ABG Hemoglobin Oxyhemoglobin Sodium Potassium Chloride Carbon Dioxide BUN Creatinine Glucose POC Glucose Lactic Acid 6.90 H* Calcium Magnesium Iron TIBC Ferritin AST ALT Lactate Dehydrogenase Troponin T C-Reactive Protein Total Protein Albumin Cholesterol LDL Cholesterol Direct HDL Cholesterol Urine WBC (Auto) Vancomycin Trough Coronavirus (PCR) Crossmatch 07/03/19 07/04/19 07/04/19 23:58 05:15 07:05 WBC 17.1 H RBC 3.22 L Hgb 8.3 L Hct 25.4 L MCV 79 L MCH 26 L MCHC RDW 18.6 H Plt Count Lymph % (Auto) [place] % (Auto) Lymph # [place] # Baso # Seg Neutrophils % Seg Neuts % (Manual) 74.0 H Lymphocytes % (Manual) 0 L Monocytes % (Manual) Nucleated RBC % Seg Neutrophils # Seg Neutrophils # Man 12.7 H Lymphocytes # (Manual) 0.0 L Monocytes # (Manual) PT INR D-Dimer ABG pH 7.310 L ABG pO2 73.2 L ABG HCO3 17.8 L ABG O2 Saturation 93.8 L ABG Base Excess -7.7 L ABG Hemoglobin 9.6 L Oxyhemoglobin 92.3 L Sodium Potassium Chloride Carbon Dioxide BUN Creatinine Glucose POC Glucose Lactic Acid 7.10 H* Calcium Magnesium Iron TIBC Ferritin AST ALT Lactate Dehydrogenase Troponin T C-Reactive Protein Total Protein Albumin Cholesterol LDL Cholesterol Direct HDL Cholesterol Urine WBC (Auto) Vancomycin Trough Coronavirus (PCR) Crossmatch 07/04/19 07/04/19 07/04/19 07:05 07:05 07:05 WBC RBC Hgb Hct MCV MCH MCHC RDW Plt Count Lymph % (Auto) [place] % (Auto) Lymph # [place] # Baso # Seg Neutrophils % Seg Neuts % (Manual) Lymphocytes % (Manual) Monocytes % (Manual) Nucleated RBC % Seg Neutrophils # Seg Neutrophils # Man Lymphocytes # (Manual) Monocytes # (Manual) PT INR D-Dimer ABG pH ABG pO2 ABG HCO3 ABG O2 Saturation ABG Base Excess ABG Hemoglobin Oxyhemoglobin Sodium 120 L Potassium 5.1 H Chloride 90.0 L Carbon Dioxide 14 L BUN 26 H Creatinine 0.5 L Glucose POC Glucose Lactic Acid 3.30 H* Calcium 8.0 L Magnesium Iron 9 L TIBC 97 L Ferritin AST 73 H ALT 91 H Lactate Dehydrogenase Troponin T C-Reactive Protein Total Protein 5.5 L Albumin 2.0 L Cholesterol LDL Cholesterol Direct HDL Cholesterol Urine WBC (Auto) Vancomycin Trough Coronavirus (PCR) Crossmatch 07/04/19 07/04/19 07/04/19 09:39 09:39 09:39 WBC RBC Hgb Hct MCV MCH MCHC RDW Plt Count Lymph % (Auto) [place] % (Auto) Lymph # [place] # Baso # Seg Neutrophils % Seg Neuts % (Manual) Lymphocytes % (Manual) Monocytes % (Manual) Nucleated RBC % Seg Neutrophils # Seg Neutrophils # Man Lymphocytes # (Manual) Monocytes # (Manual) PT INR D-Dimer 1419.14 H ABG pH ABG pO2 ABG HCO3 ABG O2 Saturation ABG Base Excess ABG Hemoglobin Oxyhemoglobin Sodium Potassium Chloride Carbon Dioxide BUN Creatinine Glucose POC Glucose Lactic Acid Calcium Magnesium Iron TIBC Ferritin 1719.0 H AST ALT Lactate Dehydrogenase 234 H Troponin T C-Reactive Protein 15.50 H Total Protein Albumin Cholesterol LDL Cholesterol Direct HDL Cholesterol Urine WBC (Auto) Vancomycin Trough Coronavirus (PCR) Crossmatch 07/04/19 07/04/19 07/04/19 10:09 18:08 18:28 WBC RBC Hgb Hct MCV MCH MCHC RDW Plt Count Lymph % (Auto) [place] % (Auto) Lymph # [place] # Baso # Seg Neutrophils % Seg Neuts % (Manual) Lymphocytes % (Manual) Monocytes % (Manual) Nucleated RBC % Seg Neutrophils # Seg Neutrophils # Man Lymphocytes # (Manual) Monocytes # (Manual) PT INR D-Dimer ABG pH ABG pO2 ABG HCO3 ABG O2 Saturation ABG Base Excess ABG Hemoglobin Oxyhemoglobin Sodium 117 L* Potassium 5.6 H Chloride 90.3 L Carbon Dioxide 16 L BUN 28 H Creatinine 0.5 L Glucose 58 L POC Glucose 65 L Lactic Acid Calcium 8.2 L Magnesium Iron TIBC Ferritin AST ALT Lactate Dehydrogenase Troponin T C-Reactive Protein Total Protein Albumin Cholesterol LDL Cholesterol Direct HDL Cholesterol Urine WBC (Auto) Vancomycin Trough Coronavirus (PCR) Positive A Crossmatch 07/04/19 07/04/19 07/04/19 23:45 Unknown Unknown WBC RBC Hgb Hct MCV MCH MCHC RDW Plt Count Lymph % (Auto) [place] % (Auto) Lymph # [place] # Baso # Seg Neutrophils % Seg Neuts % (Manual) Lymphocytes % (Manual) Monocytes % (Manual) Nucleated RBC % Seg Neutrophils # Seg Neutrophils # Man Lymphocytes # (Manual) Monocytes # (Manual) PT INR D-Dimer 759.77 H ABG pH ABG pO2 ABG HCO3 ABG O2 Saturation ABG Base Excess ABG Hemoglobin Oxyhemoglobin Sodium 122 L Potassium Chloride 93.0 L Carbon Dioxide 19 L BUN 27 H Creatinine 0.5 L Glucose POC Glucose Lactic Acid Calcium 8.3 L Magnesium Iron TIBC Ferritin 1301.0 H AST ALT Lactate Dehydrogenase Troponin T C-Reactive Protein Total Protein Albumin Cholesterol LDL Cholesterol Direct HDL Cholesterol Urine WBC (Auto) Vancomycin Trough Coronavirus (PCR) Crossmatch 07/04/19 07/05/19 07/05/19 Unknown 03:20 04:00 WBC RBC Hgb Hct MCV MCH MCHC RDW Plt Count Lymph % (Auto) [place] % (Auto) Lymph # [place] # Baso # Seg Neutrophils % Seg Neuts % (Manual) Lymphocytes % (Manual) Monocytes % (Manual) Nucleated RBC % Seg Neutrophils # Seg Neutrophils # Man Lymphocytes # (Manual) Monocytes # (Manual) PT INR D-Dimer ABG pH ABG pO2 60.6 L ABG HCO3 ABG O2 Saturation 93.5 L ABG Base Excess -2.4 L ABG Hemoglobin 6.9 L Oxyhemoglobin 92.0 L Sodium 125 L Potassium Chloride 92.6 L Carbon Dioxide 19 L BUN 24 H Creatinine 0.6 L Glucose POC Glucose Lactic Acid Calcium 8.2 L Magnesium 1.40 L Iron TIBC Ferritin AST ALT Lactate Dehydrogenase 242 H Troponin T C-Reactive Protein 16.70 H Total Protein Albumin Cholesterol LDL Cholesterol Direct HDL Cholesterol Urine WBC (Auto) Vancomycin Trough Coronavirus (PCR) Crossmatch 07/05/19 07/05/19 07/05/19 10:11 16:15 17:54 WBC 46.4 H* RBC 2.77 L Hgb 7.2 L Hct 21.9 L MCV 79 L MCH 26 L MCHC RDW 19.0 H Plt Count Lymph % (Auto) [place] % (Auto) Lymph # [place] # Baso # Seg Neutrophils % Seg Neuts % (Manual) 82.0 H Lymphocytes % (Manual) 1.0 L Monocytes % (Manual) Nucleated RBC % Seg Neutrophils # Seg Neutrophils # Man 38.0 H Lymphocytes # (Manual) 0.5 L Monocytes # (Manual) PT INR D-Dimer ABG pH ABG pO2 ABG HCO3 ABG O2 Saturation ABG Base Excess ABG Hemoglobin Oxyhemoglobin Sodium Potassium Chloride Carbon Dioxide BUN Creatinine Glucose POC Glucose 69 L Lactic Acid Calcium Magnesium Iron TIBC Ferritin AST ALT Lactate Dehydrogenase Troponin T C-Reactive Protein Total Protein Albumin Cholesterol LDL Cholesterol Direct HDL Cholesterol Urine WBC (Auto) Vancomycin Trough 23.2 H Coronavirus (PCR) Crossmatch 07/05/19 07/06/19 07/06/19 19:58 00:27 00:27 WBC RBC Hgb Hct MCV MCH MCHC RDW Plt Count Lymph % (Auto) [place] % (Auto) Lymph # [place] # Baso # Seg Neutrophils % Seg Neuts % (Manual) Lymphocytes % (Manual) Monocytes % (Manual) Nucleated RBC % Seg Neutrophils # Seg Neutrophils # Man Lymphocytes # (Manual) Monocytes # (Manual) PT INR D-Dimer 1333.22 H ABG pH ABG pO2 ABG HCO3 ABG O2 Saturation ABG Base Excess ABG Hemoglobin Oxyhemoglobin Sodium 127 L Potassium Chloride Carbon Dioxide BUN Creatinine Glucose POC Glucose Lactic Acid Calcium Magnesium Iron TIBC Ferritin 977.1 H AST ALT Lactate Dehydrogenase Troponin T C-Reactive Protein Total Protein Albumin Cholesterol LDL Cholesterol Direct HDL Cholesterol Urine WBC (Auto) Vancomycin Trough Coronavirus (PCR) Crossmatch 07/06/19 07/06/19 07/06/19 00:27 02:00 02:56 WBC RBC Hgb Hct MCV MCH MCHC RDW Plt Count Lymph % (Auto) [place] % (Auto) Lymph # [place] # Baso # Seg Neutrophils % Seg Neuts % (Manual) Lymphocytes % (Manual) Monocytes % (Manual) Nucleated RBC % Seg Neutrophils # Seg Neutrophils # Man Lymphocytes # (Manual) Monocytes # (Manual) PT INR D-Dimer ABG pH ABG pO2 70.3 L ABG HCO3 ABG O2 Saturation 94.8 L ABG Base Excess ABG Hemoglobin 8.0 L Oxyhemoglobin 93.2 L Sodium Potassium Chloride Carbon Dioxide BUN Creatinine Glucose POC Glucose 117 H Lactic Acid Calcium Magnesium Iron TIBC Ferritin AST ALT Lactate Dehydrogenase 236 H Troponin T C-Reactive Protein 22.90 H Total Protein Albumin Cholesterol LDL Cholesterol Direct HDL Cholesterol Urine WBC (Auto) Vancomycin Trough Coronavirus (PCR) Crossmatch 07/06/19 07/06/19 07/06/19 03:49 03:49 07:40 WBC 38.8 H RBC 2.51 L Hgb 6.7 L Hct 19.9 L* MCV 79 L MCH 27 L MCHC RDW 19.2 H Plt Count Lymph % (Auto) [place] % (Auto) Lymph # [place] # Baso # Seg Neutrophils % Seg Neuts % (Manual) 90.5 H Lymphocytes % (Manual) 1.0 L Monocytes % (Manual) Nucleated RBC % Seg Neutrophils # Seg Neutrophils # Man 35.1 H Lymphocytes # (Manual) 0.4 L Monocytes # (Manual) PT INR D-Dimer ABG pH ABG pO2 ABG HCO3 ABG O2 Saturation ABG Base Excess ABG Hemoglobin Oxyhemoglobin Sodium 131 L Potassium Chloride 96.9 L Carbon Dioxide 18 L BUN 23 H Creatinine 0.5 L Glucose POC Glucose Lactic Acid Calcium 8.0 L Magnesium Iron TIBC Ferritin AST ALT Lactate Dehydrogenase Troponin T C-Reactive Protein Total Protein Albumin Cholesterol LDL Cholesterol Direct HDL Cholesterol Urine WBC (Auto) Vancomycin Trough Coronavirus (PCR) Crossmatch See Detail 07/06/19 07/06/19 07/06/19 12:38 14:39 20:00 WBC RBC Hgb Hct MCV MCH MCHC RDW Plt Count Lymph % (Auto) [place] % (Auto) Lymph # [place] # Baso # Seg Neutrophils % Seg Neuts % (Manual) Lymphocytes % (Manual) Monocytes % (Manual) Nucleated RBC % Seg Neutrophils # Seg Neutrophils # Man Lymphocytes # (Manual) Monocytes # (Manual) PT INR D-Dimer ABG pH ABG pO2 ABG HCO3 ABG O2 Saturation ABG Base Excess ABG Hemoglobin Oxyhemoglobin Sodium Potassium Chloride Carbon Dioxide BUN Creatinine Glucose POC Glucose 112 H 111 H 140 H Lactic Acid Calcium Magnesium Iron TIBC Ferritin AST ALT Lactate Dehydrogenase Troponin T C-Reactive Protein Total Protein Albumin Cholesterol LDL Cholesterol Direct HDL Cholesterol Urine WBC (Auto) Vancomycin Trough Coronavirus (PCR) Crossmatch 07/06/19 07/06/19 07/07/19 22:43 22:56 02:20 WBC RBC Hgb 7.9 L Hct 23.1 L MCV MCH MCHC RDW Plt Count Lymph % (Auto) [place] % (Auto) Lymph # [place] # Baso # Seg Neutrophils % Seg Neuts % (Manual) Lymphocytes % (Manual) Monocytes % (Manual) Nucleated RBC % Seg Neutrophils # Seg Neutrophils # Man Lymphocytes # (Manual) Monocytes # (Manual) PT INR D-Dimer ABG pH ABG pO2 ABG HCO3 ABG O2 Saturation ABG Base Excess ABG Hemoglobin Oxyhemoglobin Sodium Potassium Chloride Carbon Dioxide BUN Creatinine Glucose POC Glucose 122 H 149 H Lactic Acid Calcium Magnesium Iron TIBC Ferritin AST ALT Lactate Dehydrogenase Troponin T C-Reactive Protein Total Protein Albumin Cholesterol LDL Cholesterol Direct HDL Cholesterol Urine WBC (Auto) Vancomycin Trough Coronavirus (PCR) Crossmatch 07/07/19 07/07/19 07/07/19 04:35 05:27 05:34 WBC 23.1 H RBC 3.00 L Hgb 8.1 L Hct 24.2 L MCV 81 L MCH 27 L MCHC RDW 20.6 H Plt Count Lymph % (Auto) [place] % (Auto) Lymph # [place] # Baso # Seg Neutrophils % Seg Neuts % (Manual) 90.0 H Lymphocytes % (Manual) 2.0 L Monocytes % (Manual) Nucleated RBC % Seg Neutrophils # Seg Neutrophils # Man 20.8 H Lymphocytes # (Manual) 0.5 L Monocytes # (Manual) PT INR D-Dimer ABG pH ABG pO2 65.8 L ABG HCO3 ABG O2 Saturation 92.2 L ABG Base Excess ABG Hemoglobin 8.3 L Oxyhemoglobin 90.6 L Sodium Potassium Chloride Carbon Dioxide BUN Creatinine Glucose POC Glucose 132 H Lactic Acid Calcium Magnesium Iron TIBC Ferritin AST ALT Lactate Dehydrogenase Troponin T C-Reactive Protein Total Protein Albumin Cholesterol LDL Cholesterol Direct HDL Cholesterol Urine WBC (Auto) Vancomycin Trough Coronavirus (PCR) Crossmatch 07/07/19 07/07/19 07/07/19 05:34 11:50 15:58 WBC RBC Hgb 8.1 L Hct 24.2 L MCV MCH MCHC RDW Plt Count Lymph % (Auto) [place] % (Auto) Lymph # [place] # Baso # Seg Neutrophils % Seg Neuts % (Manual) Lymphocytes % (Manual) Monocytes % (Manual) Nucleated RBC % Seg Neutrophils # Seg Neutrophils # Man Lymphocytes # (Manual) Monocytes # (Manual) PT INR D-Dimer ABG pH ABG pO2 ABG HCO3 ABG O2 Saturation ABG Base Excess ABG Hemoglobin Oxyhemoglobin Sodium 135 L Potassium 3.3 L Chloride Carbon Dioxide 20 L BUN 27 H Creatinine 0.6 L Glucose 121 H POC Glucose 123 H Lactic Acid Calcium 8.0 L Magnesium Iron TIBC Ferritin AST ALT Lactate Dehydrogenase Troponin T C-Reactive Protein Total Protein Albumin Cholesterol LDL Cholesterol Direct HDL Cholesterol Urine WBC (Auto) Vancomycin Trough Coronavirus (PCR) Crossmatch 07/07/19 07/07/19 07/07/19 17:42 22:00 23:53 WBC RBC Hgb 8.0 L Hct 23.4 L MCV MCH MCHC RDW Plt Count Lymph % (Auto) [place] % (Auto) Lymph # [place] # Baso # Seg Neutrophils % Seg Neuts % (Manual) Lymphocytes % (Manual) Monocytes % (Manual) Nucleated RBC % Seg Neutrophils # Seg Neutrophils # Man Lymphocytes # (Manual) Monocytes # (Manual) PT INR D-Dimer ABG pH ABG pO2 ABG HCO3 ABG O2 Saturation ABG Base Excess ABG Hemoglobin Oxyhemoglobin Sodium Potassium Chloride Carbon Dioxide BUN Creatinine Glucose POC Glucose 107 H 117 H Lactic Acid Calcium Magnesium Iron TIBC Ferritin AST ALT Lactate Dehydrogenase Troponin T C-Reactive Protein Total Protein Albumin Cholesterol LDL Cholesterol Direct HDL Cholesterol Urine WBC (Auto) Vancomycin Trough Coronavirus (PCR) Crossmatch 07/08/19 07/08/19 07/08/19 00:45 00:45 00:45 WBC RBC Hgb Hct MCV MCH MCHC RDW Plt Count Lymph % (Auto) [place] % (Auto) Lymph # [place] # Baso # Seg Neutrophils % Seg Neuts % (Manual) Lymphocytes % (Manual) Monocytes % (Manual) Nucleated RBC % Seg Neutrophils # Seg Neutrophils # Man Lymphocytes # (Manual) Monocytes # (Manual) PT INR D-Dimer 1142.18 H ABG pH ABG pO2 ABG HCO3 ABG O2 Saturation ABG Base Excess ABG Hemoglobin Oxyhemoglobin Sodium Potassium Chloride Carbon Dioxide BUN Creatinine Glucose POC Glucose Lactic Acid Calcium Magnesium Iron TIBC Ferritin 839.0 H AST ALT Lactate Dehydrogenase 253 H Troponin T C-Reactive Protein 18.90 H Total Protein Albumin Cholesterol LDL Cholesterol Direct HDL Cholesterol Urine WBC (Auto) Vancomycin Trough Coronavirus (PCR) Crossmatch 07/08/19 07/08/19 07/08/19 04:30 05:11 12:02 WBC RBC Hgb Hct MCV MCH MCHC RDW Plt Count Lymph % (Auto) [place] % (Auto) Lymph # [place] # Baso # Seg Neutrophils % Seg Neuts % (Manual) Lymphocytes % (Manual) Monocytes % (Manual) Nucleated RBC % Seg Neutrophils # Seg Neutrophils # Man Lymphocytes # (Manual) Monocytes # (Manual) PT INR D-Dimer ABG pH ABG pO2 66.0 L ABG HCO3 ABG O2 Saturation 92.3 L ABG Base Excess ABG Hemoglobin 7.7 L Oxyhemoglobin 90.7 L Sodium Potassium Chloride Carbon Dioxide BUN Creatinine Glucose POC Glucose 108 H 153 H Lactic Acid Calcium Magnesium Iron TIBC Ferritin AST ALT Lactate Dehydrogenase Troponin T C-Reactive Protein Total Protein Albumin Cholesterol LDL Cholesterol Direct HDL Cholesterol Urine WBC (Auto) Vancomycin Trough Coronavirus (PCR) Crossmatch 07/08/19 07/08/19 07/08/19 16:15 18:22 23:35 WBC RBC Hgb Hct MCV MCH MCHC RDW Plt Count Lymph % (Auto) [place] % (Auto) Lymph # [place] # Baso # Seg Neutrophils % Seg Neuts % (Manual) Lymphocytes % (Manual) Monocytes % (Manual) Nucleated RBC % Seg Neutrophils # Seg Neutrophils # Man Lymphocytes # (Manual) Monocytes # (Manual) PT INR D-Dimer ABG pH ABG pO2 ABG HCO3 ABG O2 Saturation ABG Base Excess ABG Hemoglobin Oxyhemoglobin Sodium 134 L Potassium 3.3 L Chloride Carbon Dioxide 21 L BUN 27 H Creatinine 0.6 L Glucose 146 H POC Glucose 134 H 133 H Lactic Acid Calcium Magnesium Iron TIBC Ferritin AST ALT Lactate Dehydrogenase Troponin T C-Reactive Protein Total Protein Albumin Cholesterol LDL Cholesterol Direct HDL Cholesterol Urine WBC (Auto) Vancomycin Trough Coronavirus (PCR) Crossmatch 07/09/19 07/09/19 07/09/19 04:30 04:30 05:00 WBC 18.9 H RBC 2.77 L Hgb 7.4 L Hct 22.8 L MCV 82 L MCH 27 L MCHC RDW 20.9 H Plt Count 130 L Lymph % (Auto) [place] % (Auto) Lymph # [place] # Baso # Seg Neutrophils % Seg Neuts % (Manual) 84.0 H Lymphocytes % (Manual) 0 L Monocytes % (Manual) Nucleated RBC % Seg Neutrophils # Seg Neutrophils # Man 15.9 H Lymphocytes # (Manual) 0.0 L Monocytes # (Manual) PT INR D-Dimer ABG pH ABG pO2 ABG HCO3 ABG O2 Saturation ABG Base Excess ABG Hemoglobin Oxyhemoglobin Sodium Potassium 3.1 L Chloride Carbon Dioxide BUN 26 H Creatinine 0.5 L Glucose 125 H POC Glucose 155 H Lactic Acid Calcium Magnesium Iron TIBC Ferritin AST ALT Lactate Dehydrogenase Troponin T C-Reactive Protein Total Protein Albumin Cholesterol LDL Cholesterol Direct HDL Cholesterol Urine WBC (Auto) Vancomycin Trough Coronavirus (PCR) Crossmatch 07/09/19 07/09/19 07/09/19 05:55 12:22 17:50 WBC RBC Hgb Hct MCV MCH MCHC RDW Plt Count Lymph % (Auto) [place] % (Auto) Lymph # [place] # Baso # Seg Neutrophils % Seg Neuts % (Manual) Lymphocytes % (Manual) Monocytes % (Manual) Nucleated RBC % Seg Neutrophils # Seg Neutrophils # Man Lymphocytes # (Manual) Monocytes # (Manual) PT INR D-Dimer ABG pH ABG pO2 62.8 L ABG HCO3 ABG O2 Saturation ABG Base Excess ABG Hemoglobin 6.1 L Oxyhemoglobin 93.9 L Sodium Potassium Chloride Carbon Dioxide BUN Creatinine Glucose POC Glucose 115 H 133 H Lactic Acid Calcium Magnesium Iron TIBC Ferritin AST ALT Lactate Dehydrogenase Troponin T C-Reactive Protein Total Protein Albumin Cholesterol LDL Cholesterol Direct HDL Cholesterol Urine WBC (Auto) Vancomycin Trough Coronavirus (PCR) Crossmatch 07/10/19 07/10/19 07/10/19 00:38 04:00 04:00 WBC RBC Hgb Hct MCV MCH MCHC RDW Plt Count Lymph % (Auto) [place] % (Auto) Lymph # [place] # Baso # Seg Neutrophils % Seg Neuts % (Manual) Lymphocytes % (Manual) Monocytes % (Manual) Nucleated RBC % Seg Neutrophils # Seg Neutrophils # Man Lymphocytes # (Manual) Monocytes # (Manual) PT INR D-Dimer ABG pH ABG pO2 ABG HCO3 ABG O2 Saturation ABG Base Excess ABG Hemoglobin Oxyhemoglobin Sodium Potassium Chloride 107.9 H Carbon Dioxide BUN 26 H Creatinine 0.4 L Glucose 137 H POC Glucose 122 H Lactic Acid Calcium Magnesium 1.50 L Iron TIBC Ferritin AST ALT Lactate Dehydrogenase 277 H Troponin T C-Reactive Protein 15.10 H Total Protein Albumin Cholesterol LDL Cholesterol Direct HDL Cholesterol Urine WBC (Auto) Vancomycin Trough Coronavirus (PCR) Crossmatch 07/10/19 07/10/19 07/10/19 04:07 05:21 17:25 WBC RBC Hgb Hct MCV MCH MCHC RDW Plt Count Lymph % (Auto) [place] % (Auto) Lymph # [place] # Baso # Seg Neutrophils % Seg Neuts % (Manual) Lymphocytes % (Manual) Monocytes % (Manual) Nucleated RBC % Seg Neutrophils # Seg Neutrophils # Man Lymphocytes # (Manual) Monocytes # (Manual) PT INR D-Dimer ABG pH ABG pO2 65.6 L ABG HCO3 26.3 H ABG O2 Saturation ABG Base Excess ABG Hemoglobin 6.7 L Oxyhemoglobin Sodium Potassium Chloride Carbon Dioxide BUN Creatinine Glucose POC Glucose 144 H 113 H Lactic Acid Calcium Magnesium Iron TIBC Ferritin AST ALT Lactate Dehydrogenase Troponin T C-Reactive Protein Total Protein Albumin Cholesterol LDL Cholesterol Direct HDL Cholesterol Urine WBC (Auto) Vancomycin Trough Coronavirus (PCR) Crossmatch 07/11/19 07/11/19 07/11/19 00:07 05:14 05:25 WBC RBC Hgb Hct MCV MCH MCHC RDW Plt Count Lymph % (Auto) [place] % (Auto) Lymph # [place] # Baso # Seg Neutrophils % Seg Neuts % (Manual) Lymphocytes % (Manual) Monocytes % (Manual) Nucleated RBC % Seg Neutrophils # Seg Neutrophils # Man Lymphocytes # (Manual) Monocytes # (Manual) PT INR D-Dimer ABG pH ABG pO2 ABG HCO3 ABG O2 Saturation ABG Base Excess ABG Hemoglobin 5.8 L Oxyhemoglobin Sodium Potassium Chloride 108.0 H Carbon Dioxide BUN 26 H Creatinine 0.4 L Glucose 110 H POC Glucose 121 H Lactic Acid Calcium Magnesium Iron TIBC Ferritin AST ALT Lactate Dehydrogenase Troponin T C-Reactive Protein Total Protein Albumin Cholesterol LDL Cholesterol Direct HDL Cholesterol Urine WBC (Auto) Vancomycin Trough Coronavirus (PCR) Crossmatch 07/11/19 07/11/19 07/11/19 12:27 18:00 23:42 WBC RBC Hgb Hct MCV MCH MCHC RDW Plt Count Lymph % (Auto) [place] % (Auto) Lymph # [place] # Baso # Seg Neutrophils % Seg Neuts % (Manual) Lymphocytes % (Manual) Monocytes % (Manual) Nucleated RBC % Seg Neutrophils # Seg Neutrophils # Man Lymphocytes # (Manual) Monocytes # (Manual) PT INR D-Dimer ABG pH ABG pO2 ABG HCO3 ABG O2 Saturation ABG Base Excess ABG Hemoglobin Oxyhemoglobin Sodium Potassium Chloride Carbon Dioxide BUN Creatinine Glucose POC Glucose 158 H 141 H 142 H Lactic Acid Calcium Magnesium Iron TIBC Ferritin AST ALT Lactate Dehydrogenase Troponin T C-Reactive Protein Total Protein Albumin Cholesterol LDL Cholesterol Direct HDL Cholesterol Urine WBC (Auto) Vancomycin Trough Coronavirus (PCR) Crossmatch 07/12/19 07/12/19 07/12/19 04:46 04:46 05:23 WBC 23.6 H RBC 2.51 L Hgb 6.7 L Hct 20.8 L MCV 83 L MCH 27 L MCHC RDW 20.3 H Plt Count Lymph % (Auto) [place] % (Auto) Lymph # [place] # Baso # Seg Neutrophils % Seg Neuts % (Manual) 94.0 H Lymphocytes % (Manual) 4.0 L Monocytes % (Manual) Nucleated RBC % Seg Neutrophils # Seg Neutrophils # Man 22.2 H Lymphocytes # (Manual) 0.9 L Monocytes # (Manual) PT INR D-Dimer ABG pH ABG pO2 ABG HCO3 ABG O2 Saturation ABG Base Excess ABG Hemoglobin Oxyhemoglobin Sodium Potassium Chloride 107.1 H Carbon Dioxide BUN 25 H Creatinine 0.4 L Glucose 122 H POC Glucose 118 H Lactic Acid Calcium Magnesium Iron TIBC Ferritin AST ALT Lactate Dehydrogenase Troponin T C-Reactive Protein Total Protein Albumin Cholesterol LDL Cholesterol Direct HDL Cholesterol Urine WBC (Auto) Vancomycin Trough Coronavirus (PCR) Crossmatch 07/12/19 07/12/19 07/12/19 08:49 11:36 18:15 WBC RBC Hgb Hct MCV MCH MCHC RDW Plt Count Lymph % (Auto) [place] % (Auto) Lymph # [place] # Baso # Seg Neutrophils % Seg Neuts % (Manual) Lymphocytes % (Manual) Monocytes % (Manual) Nucleated RBC % Seg Neutrophils # Seg Neutrophils # Man Lymphocytes # (Manual) Monocytes # (Manual) PT INR D-Dimer ABG pH ABG pO2 ABG HCO3 ABG O2 Saturation ABG Base Excess ABG Hemoglobin Oxyhemoglobin Sodium Potassium Chloride Carbon Dioxide BUN Creatinine Glucose POC Glucose 124 H 110 H Lactic Acid Calcium Magnesium Iron TIBC Ferritin AST ALT Lactate Dehydrogenase Troponin T C-Reactive Protein Total Protein Albumin Cholesterol LDL Cholesterol Direct HDL Cholesterol Urine WBC (Auto) Vancomycin Trough Coronavirus (PCR) Crossmatch See Detail 07/12/19 07/13/19 07/13/19 23:16 05:26 06:50 WBC 23.9 H RBC 2.58 L Hgb 6.9 L Hct 21.5 L MCV 83 L MCH 27 L MCHC RDW 19.0 H Plt Count Lymph % (Auto) [place] % (Auto) Lymph # [place] # Baso # Seg Neutrophils % Seg Neuts % (Manual) 96.0 H Lymphocytes % (Manual) 3.0 L Monocytes % (Manual) Nucleated RBC % Seg Neutrophils # Seg Neutrophils # Man 22.9 H Lymphocytes # (Manual) 0.7 L Monocytes # (Manual) PT INR D-Dimer ABG pH ABG pO2 ABG HCO3 ABG O2 Saturation ABG Base Excess ABG Hemoglobin Oxyhemoglobin Sodium Potassium Chloride Carbon Dioxide BUN Creatinine Glucose POC Glucose 108 H 126 H Lactic Acid Calcium Magnesium Iron TIBC Ferritin AST ALT Lactate Dehydrogenase Troponin T C-Reactive Protein Total Protein Albumin Cholesterol LDL Cholesterol Direct HDL Cholesterol Urine WBC (Auto) Vancomycin Trough Coronavirus (PCR) Crossmatch 07/13/19 07/13/19 07/13/19 06:50 12:38 18:05 WBC RBC Hgb Hct MCV MCH MCHC RDW Plt Count Lymph % (Auto) [place] % (Auto) Lymph # [place] # Baso # Seg Neutrophils % Seg Neuts % (Manual) Lymphocytes % (Manual) Monocytes % (Manual) Nucleated RBC % Seg Neutrophils # Seg Neutrophils # Man Lymphocytes # (Manual) Monocytes # (Manual) PT INR D-Dimer ABG pH ABG pO2 ABG HCO3 ABG O2 Saturation ABG Base Excess ABG Hemoglobin Oxyhemoglobin Sodium Potassium Chloride Carbon Dioxide BUN 33 H Creatinine 0.5 L Glucose 136 H POC Glucose 164 H 145 H Lactic Acid Calcium Magnesium Iron TIBC Ferritin AST ALT Lactate Dehydrogenase Troponin T C-Reactive Protein Total Protein Albumin Cholesterol LDL Cholesterol Direct HDL Cholesterol Urine WBC (Auto) Vancomycin Trough Coronavirus (PCR) Crossmatch 07/13/19 07/14/19 07/14/19 18:30 00:21 04:40 WBC 22.9 H RBC 2.45 L Hgb 6.6 L Hct 21.1 L MCV MCH 27 L MCHC 31 L RDW 19.2 H Plt Count Lymph % (Auto) [place] % (Auto) Lymph # [place] # Baso # Seg Neutrophils % Seg Neuts % (Manual) 91.0 H Lymphocytes % (Manual) 7.0 L Monocytes % (Manual) Nucleated RBC % Seg Neutrophils # Seg Neutrophils # Man 20.8 H Lymphocytes # (Manual) Monocytes # (Manual) PT INR D-Dimer ABG pH ABG pO2 58.1 L ABG HCO3 ABG O2 Saturation 88.7 L ABG Base Excess ABG Hemoglobin 7.8 L Oxyhemoglobin 86.8 L Sodium Potassium Chloride Carbon Dioxide BUN Creatinine Glucose POC Glucose 118 H Lactic Acid Calcium Magnesium Iron TIBC Ferritin AST ALT Lactate Dehydrogenase Troponin T C-Reactive Protein Total Protein Albumin Cholesterol LDL Cholesterol Direct HDL Cholesterol Urine WBC (Auto) Vancomycin Trough Coronavirus (PCR) Crossmatch 07/14/19 07/14/19 07/14/19 04:40 05:38 05:45 WBC RBC Hgb Hct MCV MCH MCHC RDW Plt Count Lymph % (Auto) [place] % (Auto) Lymph # [place] # Baso # Seg Neutrophils % Seg Neuts % (Manual) Lymphocytes % (Manual) Monocytes % (Manual) Nucleated RBC % Seg Neutrophils # Seg Neutrophils # Man Lymphocytes # (Manual) Monocytes # (Manual) PT INR D-Dimer ABG pH 7.230 L ABG pO2 72.1 L ABG HCO3 ABG O2 Saturation 89.3 L ABG Base Excess -2.7 L ABG Hemoglobin 6.7 L Oxyhemoglobin 87.7 L Sodium Potassium Chloride 107.4 H Carbon Dioxide BUN 45 H Creatinine Glucose 101 H POC Glucose 154 H Lactic Acid Calcium Magnesium Iron TIBC Ferritin AST ALT Lactate Dehydrogenase Troponin T C-Reactive Protein Total Protein Albumin Cholesterol LDL Cholesterol Direct HDL Cholesterol Urine WBC (Auto) Vancomycin Trough Coronavirus (PCR) Crossmatch 07/14/19 07/14/19 07/14/19 12:25 18:20 19:01 WBC 22.4 H RBC 2.70 L Hgb 7.5 L Hct 23.3 L MCV MCH MCHC RDW 19.5 H Plt Count Lymph % (Auto) [place] % (Auto) Lymph # [place] # Baso # Seg Neutrophils % Seg Neuts % (Manual) Lymphocytes % (Manual) Monocytes % (Manual) Nucleated RBC % Seg Neutrophils # Seg Neutrophils # Man Lymphocytes # (Manual) Monocytes # (Manual) PT INR D-Dimer ABG pH ABG pO2 ABG HCO3 ABG O2 Saturation ABG Base Excess ABG Hemoglobin Oxyhemoglobin Sodium Potassium Chloride Carbon Dioxide BUN Creatinine Glucose POC Glucose 136 H 131 H Lactic Acid Calcium Magnesium Iron TIBC Ferritin AST ALT Lactate Dehydrogenase Troponin T C-Reactive Protein Total Protein Albumin Cholesterol LDL Cholesterol Direct HDL Cholesterol Urine WBC (Auto) Vancomycin Trough Coronavirus (PCR) Crossmatch 07/15/19 07/15/19 07/15/19 00:17 04:35 05:18 WBC 20.6 H RBC 2.41 L Hgb 6.8 L Hct 20.7 L MCV MCH MCHC RDW 20.2 H Plt Count Lymph % (Auto) [place] % (Auto) Lymph # [place] # Baso # Seg Neutrophils % Seg Neuts % (Manual) 92.0 H Lymphocytes % (Manual) 5.0 L Monocytes % (Manual) Nucleated RBC % Seg Neutrophils # Seg Neutrophils # Man 19.0 H Lymphocytes # (Manual) 1.0 L Monocytes # (Manual) PT INR D-Dimer ABG pH 7.342 L ABG pO2 ABG HCO3 ABG O2 Saturation ABG Base Excess -3.1 L ABG Hemoglobin 7.2 L Oxyhemoglobin 94.9 L Sodium Potassium Chloride Carbon Dioxide BUN Creatinine Glucose POC Glucose 116 H Lactic Acid Calcium Magnesium Iron TIBC Ferritin AST ALT Lactate Dehydrogenase Troponin T C-Reactive Protein Total Protein Albumin Cholesterol LDL Cholesterol Direct HDL Cholesterol Urine WBC (Auto) Vancomycin Trough Coronavirus (PCR) Crossmatch 07/15/19 07/15/19 07/15/19 05:18 05:57 11:28 WBC RBC Hgb Hct MCV MCH MCHC RDW Plt Count Lymph % (Auto) [place] % (Auto) Lymph # [place] # Baso # Seg Neutrophils % Seg Neuts % (Manual) Lymphocytes % (Manual) Monocytes % (Manual) Nucleated RBC % Seg Neutrophils # Seg Neutrophils # Man Lymphocytes # (Manual) Monocytes # (Manual) PT INR D-Dimer ABG pH ABG pO2 ABG HCO3 ABG O2 Saturation ABG Base Excess ABG Hemoglobin Oxyhemoglobin Sodium Potassium Chloride Carbon Dioxide 20 L BUN 59 H Creatinine Glucose 140 H POC Glucose 139 H 117 H Lactic Acid Calcium Magnesium Iron TIBC Ferritin AST ALT Lactate Dehydrogenase Troponin T C-Reactive Protein Total Protein Albumin Cholesterol LDL Cholesterol Direct HDL Cholesterol Urine WBC (Auto) Vancomycin Trough Coronavirus (PCR) Crossmatch 07/15/19 07/16/19 07/16/19 18:13 00:06 03:43 WBC RBC Hgb Hct MCV MCH MCHC RDW Plt Count Lymph % (Auto) [place] % (Auto) Lymph # [place] # Baso # Seg Neutrophils % Seg Neuts % (Manual) Lymphocytes % (Manual) Monocytes % (Manual) Nucleated RBC % Seg Neutrophils # Seg Neutrophils # Man Lymphocytes # (Manual) Monocytes # (Manual) PT INR D-Dimer ABG pH 7.344 L ABG pO2 68.6 L ABG HCO3 ABG O2 Saturation ABG Base Excess -3.5 L ABG Hemoglobin 6.1 L Oxyhemoglobin 93.3 L Sodium Potassium Chloride Carbon Dioxide BUN Creatinine Glucose POC Glucose 114 H 119 H Lactic Acid Calcium Magnesium Iron TIBC Ferritin AST ALT Lactate Dehydrogenase Troponin T C-Reactive Protein Total Protein Albumin Cholesterol LDL Cholesterol Direct HDL Cholesterol Urine WBC (Auto) Vancomycin Trough Coronavirus (PCR) Crossmatch 07/16/19 07/16/19 07/16/19 04:41 04:41 12:09 WBC 19.6 H RBC 2.81 L Hgb 7.7 L Hct 24.0 L MCV MCH 27 L MCHC RDW 19.4 H Plt Count 514 H Lymph % (Auto) 6.7 L [place] % (Auto) Lymph # [place] # 1.0 H Baso # Seg Neutrophils % 87.0 H Seg Neuts % (Manual) Lymphocytes % (Manual) Monocytes % (Manual) Nucleated RBC % Seg Neutrophils # 17.0 H Seg Neutrophils # Man Lymphocytes # (Manual) Monocytes # (Manual) PT INR D-Dimer ABG pH ABG pO2 ABG HCO3 ABG O2 Saturation ABG Base Excess ABG Hemoglobin Oxyhemoglobin Sodium Potassium 5.9 H Chloride Carbon Dioxide 21 L BUN 73 H Creatinine 2.0 H Glucose POC Glucose 141 H Lactic Acid Calcium Magnesium Iron TIBC Ferritin AST ALT Lactate Dehydrogenase Troponin T C-Reactive Protein Total Protein Albumin Cholesterol LDL Cholesterol Direct HDL Cholesterol Urine WBC (Auto) Vancomycin Trough Coronavirus (PCR) Crossmatch 07/16/19 07/16/19 07/17/19 16:19 17:45 00:16 WBC RBC Hgb Hct MCV MCH MCHC RDW Plt Count Lymph % (Auto) [place] % (Auto) Lymph # [place] # Baso # Seg Neutrophils % Seg Neuts % (Manual) Lymphocytes % (Manual) Monocytes % (Manual) Nucleated RBC % Seg Neutrophils # Seg Neutrophils # Man Lymphocytes # (Manual) Monocytes # (Manual) PT INR D-Dimer ABG pH ABG pO2 ABG HCO3 ABG O2 Saturation ABG Base Excess ABG Hemoglobin Oxyhemoglobin Sodium Potassium 5.1 H Chloride Carbon Dioxide 20 L BUN 72 H Creatinine 1.7 H Glucose 128 H POC Glucose 181 H 164 H Lactic Acid Calcium Magnesium Iron TIBC Ferritin AST ALT Lactate Dehydrogenase Troponin T C-Reactive Protein Total Protein Albumin Cholesterol LDL Cholesterol Direct HDL Cholesterol Urine WBC (Auto) Vancomycin Trough Coronavirus (PCR) Crossmatch 07/17/19 07/17/19 07/17/19 04:20 04:39 04:39 WBC 16.1 H RBC 2.92 L Hgb 8.0 L Hct 25.5 L MCV MCH MCHC 31 L RDW 19.7 H Plt Count 564 H Lymph % (Auto) 3.6 L [place] % (Auto) 7.4 H Lymph # 0.6 L [place] # 1.2 H Baso # Seg Neutrophils % 87.5 H Seg Neuts % (Manual) Lymphocytes % (Manual) Monocytes % (Manual) Nucleated RBC % Seg Neutrophils # 14.1 H Seg Neutrophils # Man Lymphocytes # (Manual) Monocytes # (Manual) PT INR D-Dimer ABG pH 7.231 L ABG pO2 95.3 H ABG HCO3 ABG O2 Saturation ABG Base Excess -5.0 L ABG Hemoglobin 7.9 L Oxyhemoglobin 94.8 L Sodium Potassium Chloride 107.8 H Carbon Dioxide 21 L BUN 68 H Creatinine Glucose POC Glucose Lactic Acid Calcium Magnesium Iron TIBC Ferritin AST ALT Lactate Dehydrogenase Troponin T C-Reactive Protein Total Protein Albumin Cholesterol LDL Cholesterol Direct HDL Cholesterol Urine WBC (Auto) Vancomycin Trough Coronavirus (PCR) Crossmatch 07/17/19 07/17/19 07/17/19 05:28 12:11 18:48 WBC RBC Hgb Hct MCV MCH MCHC RDW Plt Count Lymph % (Auto) [place] % (Auto) Lymph # [place] # Baso # Seg Neutrophils % Seg Neuts % (Manual) Lymphocytes % (Manual) Monocytes % (Manual) Nucleated RBC % Seg Neutrophils # Seg Neutrophils # Man Lymphocytes # (Manual) Monocytes # (Manual) PT INR D-Dimer ABG pH ABG pO2 ABG HCO3 ABG O2 Saturation ABG Base Excess ABG Hemoglobin Oxyhemoglobin Sodium Potassium Chloride Carbon Dioxide BUN Creatinine Glucose POC Glucose 121 H 125 H 174 H Lactic Acid Calcium Magnesium Iron TIBC Ferritin AST ALT Lactate Dehydrogenase Troponin T C-Reactive Protein Total Protein Albumin Cholesterol LDL Cholesterol Direct HDL Cholesterol Urine WBC (Auto) Vancomycin Trough Coronavirus (PCR) Crossmatch 07/17/19 07/17/19 07/18/19 19:55 23:57 02:30 WBC RBC Hgb Hct MCV MCH MCHC RDW Plt Count Lymph % (Auto) [place] % (Auto) Lymph # [place] # Baso # Seg Neutrophils % Seg Neuts % (Manual) Lymphocytes % (Manual) Monocytes % (Manual) Nucleated RBC % Seg Neutrophils # Seg Neutrophils # Man Lymphocytes # (Manual) Monocytes # (Manual) PT INR D-Dimer ABG pH 7.344 L 7.294 L ABG pO2 78.5 L 119.2 H ABG HCO3 ABG O2 Saturation ABG Base Excess -3.3 L -2.6 L ABG Hemoglobin 8.6 L 8.1 L Oxyhemoglobin 94.8 L Sodium Potassium Chloride Carbon Dioxide BUN Creatinine Glucose POC Glucose 148 H Lactic Acid Calcium Magnesium Iron TIBC Ferritin AST ALT Lactate Dehydrogenase Troponin T C-Reactive Protein Total Protein Albumin Cholesterol LDL Cholesterol Direct HDL Cholesterol Urine WBC (Auto) Vancomycin Trough Coronavirus (PCR) Crossmatch 07/18/19 07/18/19 07/18/19 04:49 05:22 05:22 WBC 15.9 H RBC 3.00 L Hgb 8.1 L Hct 26.0 L MCV MCH 27 L MCHC 31 L RDW 19.4 H Plt Count 733 H Lymph % (Auto) 6.3 L [place] % (Auto) 7.4 H Lymph # 1.0 L [place] # 1.2 H Baso # 0.2 H Seg Neutrophils % 83.8 H Seg Neuts % (Manual) Lymphocytes % (Manual) Monocytes % (Manual) Nucleated RBC % Seg Neutrophils # 13.3 H Seg Neutrophils # Man Lymphocytes # (Manual) Monocytes # (Manual) PT INR D-Dimer ABG pH ABG pO2 ABG HCO3 ABG O2 Saturation ABG Base Excess ABG Hemoglobin Oxyhemoglobin Sodium Potassium Chloride 110.6 H Carbon Dioxide BUN 61 H Creatinine Glucose 109 H POC Glucose 116 H Lactic Acid Calcium Magnesium Iron TIBC Ferritin AST ALT Lactate Dehydrogenase Troponin T C-Reactive Protein Total Protein Albumin Cholesterol LDL Cholesterol Direct HDL Cholesterol Urine WBC (Auto) Vancomycin Trough Coronavirus (PCR) Crossmatch 07/18/19 07/18/19 07/18/19 12:23 18:06 22:20 WBC RBC Hgb Hct MCV MCH MCHC RDW Plt Count Lymph % (Auto) [place] % (Auto) Lymph # [place] # Baso # Seg Neutrophils % Seg Neuts % (Manual) Lymphocytes % (Manual) Monocytes % (Manual) Nucleated RBC % Seg Neutrophils # Seg Neutrophils # Man Lymphocytes # (Manual) Monocytes # (Manual) PT INR D-Dimer ABG pH 7.338 L ABG pO2 135.1 H ABG HCO3 ABG O2 Saturation ABG Base Excess ABG Hemoglobin 9.2 L Oxyhemoglobin Sodium Potassium Chloride Carbon Dioxide BUN Creatinine Glucose POC Glucose 114 H 113 H Lactic Acid Calcium Magnesium Iron TIBC Ferritin AST ALT Lactate Dehydrogenase Troponin T C-Reactive Protein Total Protein Albumin Cholesterol LDL Cholesterol Direct HDL Cholesterol Urine WBC (Auto) Vancomycin Trough Coronavirus (PCR) Crossmatch 07/18/19 07/19/19 07/19/19 23:33 03:45 05:18 WBC RBC Hgb Hct MCV MCH MCHC RDW Plt Count Lymph % (Auto) [place] % (Auto) Lymph # [place] # Baso # Seg Neutrophils % Seg Neuts % (Manual) Lymphocytes % (Manual) Monocytes % (Manual) Nucleated RBC % Seg Neutrophils # Seg Neutrophils # Man Lymphocytes # (Manual) Monocytes # (Manual) PT INR D-Dimer ABG pH 7.342 L ABG pO2 95.0 H ABG HCO3 ABG O2 Saturation ABG Base Excess ABG Hemoglobin 8.5 L Oxyhemoglobin Sodium Potassium Chloride Carbon Dioxide BUN Creatinine Glucose POC Glucose 125 H 111 H Lactic Acid Calcium Magnesium Iron TIBC Ferritin AST ALT Lactate Dehydrogenase Troponin T C-Reactive Protein Total Protein Albumin Cholesterol LDL Cholesterol Direct HDL Cholesterol Urine WBC (Auto) Vancomycin Trough Coronavirus (PCR) Crossmatch 07/19/19 07/19/19 07/19/19 08:45 08:45 11:47 WBC 15.9 H RBC 3.31 L Hgb 9.1 L Hct 28.4 L MCV MCH 27 L MCHC RDW 19.1 H Plt Count 858 H Lymph % (Auto) 4.9 L [place] % (Auto) 8.1 H Lymph # 0.8 L [place] # 1.3 H Baso # Seg Neutrophils % 85.5 H Seg Neuts % (Manual) Lymphocytes % (Manual) Monocytes % (Manual) Nucleated RBC % Seg Neutrophils # 13.6 H Seg Neutrophils # Man Lymphocytes # (Manual) Monocytes # (Manual) PT INR D-Dimer ABG pH ABG pO2 ABG HCO3 ABG O2 Saturation ABG Base Excess ABG Hemoglobin Oxyhemoglobin Sodium Potassium Chloride 111.6 H Carbon Dioxide BUN 50 H Creatinine 0.7 L Glucose 118 H POC Glucose 114 H Lactic Acid Calcium Magnesium Iron TIBC Ferritin AST ALT Lactate Dehydrogenase Troponin T C-Reactive Protein Total Protein Albumin Cholesterol LDL Cholesterol Direct HDL Cholesterol Urine WBC (Auto) Vancomycin Trough Coronavirus (PCR) Crossmatch 07/19/19 07/19/19 07/20/19 18:25 23:44 04:39 WBC RBC Hgb Hct MCV MCH MCHC RDW Plt Count Lymph % (Auto) [place] % (Auto) Lymph # [place] # Baso # Seg Neutrophils % Seg Neuts % (Manual) Lymphocytes % (Manual) Monocytes % (Manual) Nucleated RBC % Seg Neutrophils # Seg Neutrophils # Man Lymphocytes # (Manual) Monocytes # (Manual) PT INR D-Dimer ABG pH ABG pO2 ABG HCO3 ABG O2 Saturation ABG Base Excess ABG Hemoglobin Oxyhemoglobin Sodium Potassium Chloride 110.3 H Carbon Dioxide BUN 44 H Creatinine 0.6 L Glucose 120 H POC Glucose 115 H 117 H Lactic Acid Calcium Magnesium Iron TIBC Ferritin AST ALT Lactate Dehydrogenase Troponin T C-Reactive Protein Total Protein Albumin Cholesterol LDL Cholesterol Direct HDL Cholesterol Urine WBC (Auto) Vancomycin Trough Coronavirus (PCR) Crossmatch 07/20/19 07/21/19 07/21/19 05:30 11:59 17:40 WBC RBC Hgb Hct MCV MCH MCHC RDW Plt Count Lymph % (Auto) [place] % (Auto) Lymph # [place] # Baso # Seg Neutrophils % Seg Neuts % (Manual) Lymphocytes % (Manual) Monocytes % (Manual) Nucleated RBC % Seg Neutrophils # Seg Neutrophils # Man Lymphocytes # (Manual) Monocytes # (Manual) PT INR D-Dimer ABG pH ABG pO2 ABG HCO3 ABG O2 Saturation ABG Base Excess ABG Hemoglobin Oxyhemoglobin Sodium Potassium Chloride Carbon Dioxide BUN Creatinine Glucose POC Glucose 131 H 122 H 125 H Lactic Acid Calcium Magnesium Iron TIBC Ferritin AST ALT Lactate Dehydrogenase Troponin T C-Reactive Protein Total Protein Albumin Cholesterol LDL Cholesterol Direct HDL Cholesterol Urine WBC (Auto) Vancomycin Trough Coronavirus (PCR) Crossmatch 07/22/19 07/22/19 07/22/19 05:38 05:38 12:29 WBC 12.6 H RBC 3.19 L Hgb 8.9 L Hct 27.5 L MCV MCH MCHC RDW 18.9 H Plt Count 1101 H* Lymph % (Auto) [place] % (Auto) 12.2 H Lymph # [place] # 1.5 H Baso # Seg Neutrophils % 72.8 H Seg Neuts % (Manual) 76.0 H Lymphocytes % (Manual) 7.0 L Monocytes % (Manual) 14.0 H Nucleated RBC % 1.0 H Seg Neutrophils # 9.2 H Seg Neutrophils # Man 9.6 H Lymphocytes # (Manual) 0.9 L Monocytes # (Manual) 1.8 H PT INR D-Dimer ABG pH ABG pO2 ABG HCO3 ABG O2 Saturation ABG Base Excess ABG Hemoglobin Oxyhemoglobin Sodium Potassium 3.4 L Chloride Carbon Dioxide BUN 29 H Creatinine 0.5 L Glucose POC Glucose 116 H Lactic Acid Calcium Magnesium Iron TIBC Ferritin AST ALT Lactate Dehydrogenase Troponin T C-Reactive Protein Total Protein Albumin Cholesterol LDL Cholesterol Direct HDL Cholesterol Urine WBC (Auto) Vancomycin Trough Coronavirus (PCR) Crossmatch Chest x-ray: pending Allied health notes reviewed: nursing
--- NOTE | 2019-07-22 14:50 | Progress Note ---
Assessment and Plan 1. Hypoantremia: Suspect SIADH. Sodium level has improved, 141. Monitor Sodium level. 2. FEN: Metabolic acidosis, improved, monitor. Hypokalemia, replete K, monitor. Monitor volume status and lytes. 3. Acute kidney injury: Vasomotor MIRANDA likely 2/2 persistent hypotension. Initial bump in creatinine was 07/14. Creatinine is better, now 0.5. Monitor renal function. Avoid nephrotoxic agents. Meds dosage based on GFR. 4. Acute hypoxic respiratory failure: Currently intubated and on vent. Considering trach depending on family wishes. Pulmonary following. 5. Severe Sepsis, POA: Followed by ID. 6. Severe COVID-19 pneumonia. 7. Shock: Off pressors. Monitor BP closely. 8. Microcytic anemia, POA: Has received total of 4 units PRBC. Hgb improved 07/15 s/p PRBC. Monitor hgb. 9. Possible occlusion of PEG tube: Occlusion noted by staff. Imaging 07/16 confirmed PEG is in place. 10. Diabetes mellitus. 11. COPD. 12. Encephalopathy, POA: Metabolic. Subjective Date of service: 07/22/19 Patient was only seen from outside the glass door to prevent exposure to COVID- 19. PPE is also limited supply. Reviewed all notes, vitals, and labs to date. Objective - Exam: General appearance: intubated on ventilator, carroll bag HEENT: not examined Neck: not examined Respiratory: not examined Heart: sinus tach on the monitor Gastrointestinal: not examined Integumentary: not examined Neurologic: not examined Ext: not examined Subjective Date of service: 07/22/19 Principal diagnosis: Bilateral pneumonia, severe sepsis with septic shock, encephalopathy Objective - Vital Signs Vital signs: Vital Signs - 12hr 07/22/19 07/22/19 07/22/19 03:00 03:15 03:30 Temperature Pulse Rate 116 H 114 H 114 H Pulse Rate [ From Monitor] Pulse Rate [ Left Dorsalis Pedis] Pulse Rate [ Left Radial] Pulse Rate [ Right Dorsalis Pedis] Pulse Rate [ Right Radial] Respiratory 20 20 20 Rate Blood Pressure 117/59 118/63 118/63 O2 Sat by Pulse 99 99 99 Oximetry 07/22/19 07/22/19 07/22/19 03:46 04:00 04:15 Temperature 98.3 F Pulse Rate 113 H 113 H 114 H Pulse Rate [ 115 H From Monitor] Pulse Rate [ 115 H Left Dorsalis Pedis] Pulse Rate [ 115 H Left Radial] Pulse Rate [ 115 H Right Dorsalis Pedis] Pulse Rate [ 115 H Right Radial] Respiratory 20 20 21 Rate Blood Pressure 116/62 122/66 114/58 O2 Sat by Pulse 99 99 99 Oximetry 07/22/19 07/22/19 07/22/19 04:30 04:46 04:49 Temperature Pulse Rate 115 H 116 H 113 H Pulse Rate [ From Monitor] Pulse Rate [ Left Dorsalis Pedis] Pulse Rate [ Left Radial] Pulse Rate [ Right Dorsalis Pedis] Pulse Rate [ Right Radial] Respiratory 20 20 Rate Blood Pressure 105/55 105/55 108/61 O2 Sat by Pulse 99 100 100 Oximetry 07/22/19 07/22/19 07/22/19 05:00 05:15 05:30 Temperature Pulse Rate 115 H 115 H 114 H Pulse Rate [ From Monitor] Pulse Rate [ Left Dorsalis Pedis] Pulse Rate [ Left Radial] Pulse Rate [ Right Dorsalis Pedis] Pulse Rate [ Right Radial] Respiratory 20 20 20 Rate Blood Pressure 112/62 116/62 111/62 O2 Sat by Pulse 100 100 99 Oximetry 07/22/19 07/22/19 07/22/19 05:45 06:00 06:16 Temperature Pulse Rate 114 H 114 H 114 H Pulse Rate [ From Monitor] Pulse Rate [ Left Dorsalis Pedis] Pulse Rate [ Left Radial] Pulse Rate [ Right Dorsalis Pedis] Pulse Rate [ Right Radial] Respiratory 20 20 20 Rate Blood Pressure 113/67 108/62 117/62 O2 Sat by Pulse 99 100 100 Oximetry 07/22/19 07/22/19 07/22/19 06:30 06:45 07:00 Temperature Pulse Rate 115 H 116 H 118 H Pulse Rate [ From Monitor] Pulse Rate [ Left Dorsalis Pedis] Pulse Rate [ Left Radial] Pulse Rate [ Right Dorsalis Pedis] Pulse Rate [ Right Radial] Respiratory 20 20 20 Rate Blood Pressure 108/64 114/63 114/63 O2 Sat by Pulse 100 100 100 Oximetry 07/22/19 07/22/19 07/22/19 07:15 07:30 07:45 Temperature Pulse Rate 117 H 115 H 115 H Pulse Rate [ From Monitor] Pulse Rate [ Left Dorsalis Pedis] Pulse Rate [ Left Radial] Pulse Rate [ Right Dorsalis Pedis] Pulse Rate [ Right Radial] Respiratory 20 20 20 Rate Blood Pressure 121/65 115/65 116/64 O2 Sat by Pulse 100 100 100 Oximetry 07/22/19 07/22/19 07/22/19 08:00 08:15 08:30 Temperature 97.4 F L Pulse Rate 120 H 115 H 116 H Pulse Rate [ 113 H From Monitor] Pulse Rate [ Left Dorsalis Pedis] Pulse Rate [ Left Radial] Pulse Rate [ Right Dorsalis Pedis] Pulse Rate [ Right Radial] Respiratory 20 20 20 Rate Blood Pressure 114/66 115/62 103/58 O2 Sat by Pulse 99 99 99 Oximetry 07/22/19 07/22/19 07/22/19 08:45 09:00 09:15 Temperature Pulse Rate 117 H 115 H 115 H Pulse Rate [ From Monitor] Pulse Rate [ Left Dorsalis Pedis] Pulse Rate [ Left Radial] Pulse Rate [ Right Dorsalis Pedis] Pulse Rate [ Right Radial] Respiratory 20 20 20 Rate Blood Pressure 111/57 101/58 107/57 O2 Sat by Pulse 99 98 98 Oximetry 07/22/19 07/22/19 07/22/19 09:30 09:45 10:00 Temperature Pulse Rate 115 H 116 H 117 H Pulse Rate [ From Monitor] Pulse Rate [ Left Dorsalis Pedis] Pulse Rate [ Left Radial] Pulse Rate [ Right Dorsalis Pedis] Pulse Rate [ Right Radial] Respiratory 20 20 20 Rate Blood Pressure 110/57 113/63 115/63 O2 Sat by Pulse 98 98 99 Oximetry 07/22/19 07/22/19 07/22/19 10:16 10:30 10:46 Temperature Pulse Rate 117 H 118 H 118 H Pulse Rate [ From Monitor] Pulse Rate [ Left Dorsalis Pedis] Pulse Rate [ Left Radial] Pulse Rate [ Right Dorsalis Pedis] Pulse Rate [ Right Radial] Respiratory 19 20 20 Rate Blood Pressure 116/65 119/64 110/70 O2 Sat by Pulse 99 99 99 Oximetry 07/22/19 07/22/19 07/22/19 11:00 11:15 11:30 Temperature Pulse Rate 118 H 120 H 121 H Pulse Rate [ From Monitor] Pulse Rate [ Left Dorsalis Pedis] Pulse Rate [ Left Radial] Pulse Rate [ Right Dorsalis Pedis] Pulse Rate [ Right Radial] Respiratory 21 20 20 Rate Blood Pressure 120/62 117/68 107/61 O2 Sat by Pulse 99 99 99 Oximetry 07/22/19 07/22/19 07/22/19 11:46 12:00 12:15 Temperature 97.6 F Pulse Rate 121 H 121 H 123 H Pulse Rate [ 121 H From Monitor] Pulse Rate [ Left Dorsalis Pedis] Pulse Rate [ Left Radial] Pulse Rate [ Right Dorsalis Pedis] Pulse Rate [ Right Radial] Respiratory 20 20 21 Rate Blood Pressure 114/61 117/64 126/65 O2 Sat by Pulse 100 99 100 Oximetry 07/22/19 07/22/19 07/22/19 12:21 12:30 12:45 Temperature Pulse Rate 121 H 123 H 123 H Pulse Rate [ From Monitor] Pulse Rate [ Left Dorsalis Pedis] Pulse Rate [ Left Radial] Pulse Rate [ Right Dorsalis Pedis] Pulse Rate [ Right Radial] Respiratory 19 20 Rate Blood Pressure 107/61 122/68 118/66 O2 Sat by Pulse 99 100 100 Oximetry 07/22/19 07/22/19 07/22/19 13:00 13:15 13:30 Temperature Pulse Rate 124 H 122 H 123 H Pulse Rate [ From Monitor] Pulse Rate [ Left Dorsalis Pedis] Pulse Rate [ Left Radial] Pulse Rate [ Right Dorsalis Pedis] Pulse Rate [ Right Radial] Respiratory 20 21 20 Rate Blood Pressure 124/65 121/65 121/67 O2 Sat by Pulse 100 100 100 Oximetry - Lab 07/22/19 05:38 07/22/19 05:38 Most recent lab results ABG pH 7.342 pH Units (7.350-7.450) L 07/19/19 03:45 ABG pCO2 45.2 mm Hg 07/19/19 03:45 ABG pO2 95.0 mm Hg (80.0-90.0) H 07/19/19 03:45 ABG HCO3 24.0 mmol/L (20.0-26.0) 07/19/19 03:45 ABG O2 Saturation 97.1 % (95.0-99.0) 07/19/19 03:45 Calcium 9.5 mg/dL (8.4-10.2) 07/22/19 05:38 Phosphorus 3.60 mg/dL (2.5-4.5) 07/05/19 04:00 Magnesium 1.80 mg/dL (1.7-2.3) 07/11/19 05:14 Medications & Allergies - Medications Allergies/Adverse Reactions: Allergies No Known Allergies Allergy (Unverified 09/09/16 16:29) Home Medications: Home Medications Medication Instructions Recorded Confirmed Last Taken Type Acetaminophen [Tylenol] 500 mg PO TID 07/04/19 07/04/19 Unknown History Albuterol Sulfate [Proair 90 mcg IH TID 07/04/19 07/04/19 Unknown History Digihaler] Amlodipine Besylate [Norvasc] 2.5 mg PO QDAY 07/04/19 07/04/19 Unknown History Aspirin [Aspirin BABY CHEW TAB] 81 mg PO QDAY 07/04/19 07/04/19 Unknown History Atorvastatin Calcium [Lipitor] 80 mg PO QDAY 07/04/19 07/04/19 Unknown History Benztropine Mesylate 0.5 mg PO QDAY 07/04/19 07/04/19 Unknown History Budesonide/Formoterol Fumarate 10.2 gm IH BID 07/04/19 07/04/19 Unknown History [Budesonide-Formoterol 160-4.5] Divalproex ER [DepaKOTE ER] 1,000 mg PO QDAY 07/04/19 07/04/19 Unknown History Docusate Sodium [Colace] 100 mg PO QDAY 07/04/19 07/04/19 Unknown History Folic Acid [Folvite] 1 mg PO QDAY 07/04/19 07/04/19 Unknown History Hydrophilic Ointment [Dermafix] 113 gm TP QDAY 07/04/19 07/04/19 Unknown History Losartan [Cozaar] 100 mg PO QDAY 07/04/19 07/04/19 Unknown History Metformin HCl [Metformin HCl ER] 500 mg PO QDAY 07/04/19 07/04/19 Unknown History Metoprolol Tartrate 25 mg PO BID 07/04/19 07/04/19 Unknown History Multivit with Minerals/Ginseng 1 each PO QDAY 07/04/19 07/04/19 Unknown History [Super Ginseng Multivit Cap] Quetiapine Fumarate [SEROquel Xr] 400 mg PO QHS 07/04/19 07/04/19 Unknown History Sertraline HCl [Zoloft] 100 mg PO QDAY 07/04/19 07/04/19 Unknown History Sildenafil Citrate [Viagra] 100 mg PO QDAY PRN 07/04/19 07/04/19 Unknown History Tamsulosin [Flomax] 0.4 mg PO QDAY 07/04/19 07/04/19 Unknown History Active Medications: Generic Name Dose Route Start Last Admin Trade Name Freq PRN Reason Stop Dose Admin Acetaminophen 650 mg 07/04/19 04:24 Tylenol [place] Q6H PRN Pain MILD(1-3)/Fever >100.5/MURO Acetaminophen 650 mg 07/10/19 04:00 07/15/19 20:35 Tylenol PO 650 mg Q6HR PRN Administration Pain, Mild (1-3) FEVER Lipase/Protease/Amylase 1 each 07/04/19 10:04 07/20/19 06:15 Pancrewhitley Gilbert 10,500 Unit FEEDTUBE 1 each PRN PRN Administration For Clogged Feeding Tube Aspirin 81 mg 07/05/19 10:00 07/22/19 09:19 Baby Aspirin PO 81 mg QDAY TAMMIE Administration Dextrose 50 ml 07/04/19 06:54 D50w (25gm) Syringe IV Q30MIN PRN Hypoglycemia Protocol Docusate Sodium 100 mg 07/10/19 10:00 07/22/19 09:19 Colace PO 100 mg BID TAMMIE Administration Famotidine 20 mg 07/17/19 10:00 07/22/19 09:19 Pepcid PO 20 mg BID TAMMIE Administration Fentanyl 50 mcg 07/21/19 15:18 Sublimaze IV Q10MIN PRN ANALGESIA Folic Acid 1 mg 07/05/19 10:00 07/22/19 09:19 Folvite PO 1 mg QDAY TAMMIE Administration Hydrophilic Ointment 1 applic 07/03/19 19:56 07/05/19 17:42 Vaseline Lip Therapy TP 1 applic Q2HR PRN Administration Dry Lips Norepinephrine 4 mg in 250 mls @ 7.5 mls/hr 07/03/19 23:00 07/20/19 01:00 Levophed Drip 4 Mg/Ns 250 Ml IV Infused TITR TAMMIE Titration Protocol 2 MCG/MIN Fentanyl Citrate 2,000 mcg in 100 mls @ 4.75 mls/hr 07/21/19 16:00 07/22/19 13:45 Fentanyl Drip Premix IV 3 mcg/kg/hr TITR TAMMIE 14.25 mls/hr Administration Protocol 1 MCG/KG/HR Insulin Human Lispro 0 unit 07/07/19 12:00 07/22/19 13:00 Humalog SUB-Q Not Given Q6HR TAMMIE Protocol Levetiracetam 750 mg 07/06/19 11:00 07/22/19 09:19 Keppra FEEDTUBE 750 mg Q12HR TAMMIE Administration Metoprolol Tartrate 5 mg 07/12/19 15:08 07/12/19 15:30 Metoprolol IV 5 mg Q6HR PRN Administration Tachyarrhythmias Multi-Ingred Cream/Lotion/Oil/Oint 1 applic 07/03/19 19:56 07/05/19 13:19 Artificial Tears Ophth Oint OU 1 applic Q4HR PRN Administration Dry Eye(s) Naloxone HCl 0.1 mg 07/04/19 04:24 Naloxone IV Q2MIN PRN Res Rate </= 8 or 02 SAT < 92% Oxycodone/Acetaminophen 1 tab 07/19/19 14:17 Percocet 5/325 PO Q4H PRN Pain, Moderate (4-6) Scopolamine 1 each 07/10/19 11:00 07/22/19 10:30 Transderm-Scop TD 1 each Q3D TAMMIE Administration Simple Syrup 15 ml 07/04/19 10:04 07/10/19 21:56 Simple Syrup FEEDTUBE 15 ml PRN PRN Administration Hypoglycemia Simple Syrup 30 ml 07/04/19 10:04 Simple Syrup FEEDTUBE PRN PRN Hypoglycemia Sodium Bicarbonate 325 mg 07/04/19 10:04 07/20/19 10:20 Sodium Bicarbonate FEEDTUBE 325 mg PRN PRN Administration For Clogged Feeding Tube Sodium Chloride 10 ml 07/04/19 10:00 07/22/19 09:20 Sodium Chloride Flush Syringe 10 Ml IV 10 ml BID TAMMIE Administration Sodium Chloride 10 ml 07/04/19 04:24 Sodium Chloride Flush Syringe 10 Ml IV PRN PRN LINE FLUSH Sodium Hypochlorite 1 applic 07/10/19 14:00 07/22/19 09:19 Dakin's Half Strength TP 1 applicatio BID TAMMIE Administration
[2019-07-23] MEDS: INSULIN LISPRO 100 UNIT/ML SUB-Q SCH ×3 (00:03→19:19)
[2019-07-23] MEDS: fentaNYL DRIP Premix 2,000 MCG/100 ML BAG IV SCH ×2 (05:22→17:20)
[2019-07-23 05:59] LABS: BUN/Creatinine Ratio 60; Blood Urea Nitrogen 24 mg/dL (9-20); Calcium 9.3 mg/dL (8.4-10.2); Hemolysis Index 7
[2019-07-23 06:26] LABS: ABG Base Excess 1.1 mmol/L (-2.0-3.0); ABG Methemoglobin 0.5 % (0.0-1.5); ABG Oxygen Saturation 95.9 % (95.0-99.0); ABG PCO2 48.9 mm Hg; ABG PH 7.359 pH Units (7.350-7.450); ABG PO2 80.4 mm Hg (80.0-90.0)
--- NOTE | 2019-07-23 09:30 | Progress Note ---
Assessment and Plan 1. Hypoantremia: Suspect SIADH. Sodium level has improved, 140. Monitor Sodium level. 2. FEN: Metabolic acidosis, improved, monitor. Hypokalemia, improved, monitor. Monitor volume status and lytes. 3. Acute kidney injury: Vasomotor MIRANDA likely 2/2 persistent hypotension. Initial bump in creatinine was 07/14. Creatinine is better, now 0.4. Monitor renal function. Avoid nephrotoxic agents. Meds dosage based on GFR. 4. Acute hypoxic respiratory failure: Currently intubated, sedated, and on vent. Pulmonary following. 5. Severe Sepsis, POA: Followed by ID. 6. Severe COVID-19 pneumonia. 7. Shock: Off pressors. Monitor BP closely. 8. Microcytic anemia, POA: Has received total of 4 units PRBC. Hgb improved 07/15 s/p PRBC. Monitor hgb. 9. Possible occlusion of PEG tube: Occlusion noted by staff. Imaging 07/16 confirmed PEG is in place. 10. Diabetes mellitus. 11. COPD. 12. Encephalopathy, POA: Metabolic. Subjective Date of service: 07/23/19 Principal diagnosis: Bilateral pneumonia, severe sepsis with septic shock, encephalopathy Interval history: Patient was only seen from outside the glass door to prevent exposure to COVID- 19. PPE is also limited supply. Reviewed all notes, vitals, and labs to date. Discussed plan of care with primary RN. Objective - Exam Narrative Exam: General appearance: intubated on ventilator, carroll bag HEENT: not examined Neck: not examined Respiratory: not examined Heart: sinus tach on the monitor Gastrointestinal: not examined Integumentary: not examined Neurologic: not examined, sedated Ext: not examined - Vital Signs Vital signs: Vital Signs - 12hr 07/22/19 07/22/19 07/22/19 21:45 22:00 22:15 Temperature Pulse Rate 129 H 128 H 128 H Pulse Rate [ From Monitor] Respiratory 22 19 23 Rate Blood Pressure 138/77 137/72 136/77 O2 Sat by Pulse 100 100 99 Oximetry 07/22/19 07/22/19 07/22/19 22:30 22:45 22:59 Temperature Pulse Rate 127 H 127 H 127 H Pulse Rate [ From Monitor] Respiratory 21 21 13 Rate Blood Pressure 135/73 135/70 135/70 O2 Sat by Pulse 99 100 100 Oximetry 07/22/19 07/22/19 07/22/19 23:00 23:08 23:15 Temperature Pulse Rate 124 H 125 H 126 H Pulse Rate [ From Monitor] Respiratory 20 18 21 Rate Blood Pressure 130/75 135/73 134/69 O2 Sat by Pulse 100 100 100 Oximetry 07/22/19 07/22/19 07/23/19 23:30 23:45 00:00 Temperature 99.0 F Pulse Rate 128 H 126 H 126 H Pulse Rate [ 126 H From Monitor] Respiratory 21 20 21 Rate Blood Pressure 129/67 135/76 134/71 O2 Sat by Pulse 100 100 100 Oximetry 07/23/19 07/23/19 07/23/19 00:14 00:15 00:30 Temperature Pulse Rate 126 H 124 H 126 H Pulse Rate [ From Monitor] Respiratory 20 21 Rate Blood Pressure 134/71 131/77 133/73 O2 Sat by Pulse 100 100 100 Oximetry 07/23/19 07/23/19 07/23/19 00:45 01:00 01:15 Temperature Pulse Rate 125 H 127 H 124 H Pulse Rate [ From Monitor] Respiratory 22 19 21 Rate Blood Pressure 131/72 133/71 131/72 O2 Sat by Pulse 100 100 100 Oximetry 07/23/19 07/23/19 07/23/19 01:30 01:46 02:00 Temperature Pulse Rate 123 H 126 H 125 H Pulse Rate [ From Monitor] Respiratory 20 18 20 Rate Blood Pressure 133/67 147/81 135/73 O2 Sat by Pulse 100 95 100 Oximetry 07/23/19 07/23/19 07/23/19 02:16 02:30 02:46 Temperature Pulse Rate 124 H 119 H 118 H Pulse Rate [ From Monitor] Respiratory 17 20 20 Rate Blood Pressure 135/73 135/73 135/73 O2 Sat by Pulse 100 100 77 L Oximetry 07/23/19 07/23/19 07/23/19 03:00 03:16 03:30 Temperature Pulse Rate 118 H 117 H 117 H Pulse Rate [ From Monitor] Respiratory 20 20 20 Rate Blood Pressure 135/73 124/64 127/63 O2 Sat by Pulse 100 100 Oximetry 07/23/19 07/23/19 07/23/19 03:46 04:00 04:16 Temperature 98.7 F Pulse Rate 117 H 114 H 114 H Pulse Rate [ 114 H From Monitor] Respiratory 20 20 20 Rate Blood Pressure 127/63 120/66 127/63 O2 Sat by Pulse 100 99 99 Oximetry 07/23/19 07/23/19 07/23/19 04:30 04:36 04:46 Temperature Pulse Rate 112 H 112 H 114 H Pulse Rate [ From Monitor] Respiratory 20 16 Rate Blood Pressure 130/69 130/69 130/69 O2 Sat by Pulse 100 98 99 Oximetry 07/23/19 07/23/19 07/23/19 05:00 05:16 05:30 Temperature Pulse Rate 115 H 115 H 115 H Pulse Rate [ From Monitor] Respiratory 16 16 16 Rate Blood Pressure 120/65 120/65 120/65 O2 Sat by Pulse 100 99 100 Oximetry 07/23/19 07/23/19 07/23/19 05:46 06:00 06:16 Temperature Pulse Rate 115 H 115 H 115 H Pulse Rate [ From Monitor] Respiratory 16 15 19 Rate Blood Pressure 125/66 122/64 122/64 O2 Sat by Pulse 100 100 100 Oximetry 07/23/19 06:30 Temperature Pulse Rate 114 H Pulse Rate [ From Monitor] Respiratory 18 Rate Blood Pressure 126/67 O2 Sat by Pulse 100 Oximetry - Lab 07/22/19 05:38 07/23/19 04:52 Most recent lab results ABG pH 7.359 pH Units (7.350-7.450) 07/23/19 06:00 ABG pCO2 48.9 mm Hg 07/23/19 06:00 ABG pO2 80.4 mm Hg (80.0-90.0) 07/23/19 06:00 ABG HCO3 27.0 mmol/L (20.0-26.0) H 07/23/19 06:00 ABG O2 Saturation 95.9 % (95.0-99.0) 07/23/19 06:00 Calcium 9.3 mg/dL (8.4-10.2) 07/23/19 04:52 Phosphorus 3.60 mg/dL (2.5-4.5) 07/05/19 04:00 Magnesium 1.80 mg/dL (1.7-2.3) 07/11/19 05:14 Medications & Allergies - Medications Allergies/Adverse Reactions: Allergies No Known Allergies Allergy (Unverified 09/09/16 16:29) Home Medications: Home Medications Medication Instructions Recorded Confirmed Last Taken Type Acetaminophen [Tylenol] 500 mg PO TID 07/04/19 07/04/19 Unknown History Albuterol Sulfate [Proair 90 mcg IH TID 07/04/19 07/04/19 Unknown History Digihaler] Amlodipine Besylate [Norvasc] 2.5 mg PO QDAY 07/04/19 07/04/19 Unknown History Aspirin [Aspirin BABY CHEW TAB] 81 mg PO QDAY 07/04/19 07/04/19 Unknown History Atorvastatin Calcium [Lipitor] 80 mg PO QDAY 07/04/19 07/04/19 Unknown History Benztropine Mesylate 0.5 mg PO QDAY 07/04/19 07/04/19 Unknown History Budesonide/Formoterol Fumarate 10.2 gm IH BID 07/04/19 07/04/19 Unknown History [Budesonide-Formoterol 160-4.5] Divalproex ER [DepaKOTE ER] 1,000 mg PO QDAY 07/04/19 07/04/19 Unknown History Docusate Sodium [Colace] 100 mg PO QDAY 07/04/19 07/04/19 Unknown History Folic Acid [Folvite] 1 mg PO QDAY 07/04/19 07/04/19 Unknown History Hydrophilic Ointment [Dermafix] 113 gm TP QDAY 07/04/19 07/04/19 Unknown History Losartan [Cozaar] 100 mg PO QDAY 07/04/19 07/04/19 Unknown History Metformin HCl [Metformin HCl ER] 500 mg PO QDAY 07/04/19 07/04/19 Unknown History Metoprolol Tartrate 25 mg PO BID 07/04/19 07/04/19 Unknown History Multivit with Minerals/Ginseng 1 each PO QDAY 07/04/19 07/04/19 Unknown History [Super Ginseng Multivit Cap] Quetiapine Fumarate [SEROquel Xr] 400 mg PO QHS 07/04/19 07/04/19 Unknown History Sertraline HCl [Zoloft] 100 mg PO QDAY 07/04/19 07/04/19 Unknown History Sildenafil Citrate [Viagra] 100 mg PO QDAY PRN 07/04/19 07/04/19 Unknown History Tamsulosin [Flomax] 0.4 mg PO QDAY 04/15/20 04/15/20 Unknown History Active Medications: Generic Name Dose Route Start Last Admin Trade Name Freq PRN Reason Stop Dose Admin Acetaminophen 650 mg 07/04/19 04:24 Tylenol AR Q6H PRN Pain MILD(1-3)/Fever >100.5/MURO Acetaminophen 650 mg 07/10/19 04:00 07/15/19 20:35 Tylenol PO 650 mg Q6HR PRN Administration Pain, Mild (1-3) FEVER Lipase/Protease/Amylase 1 each 07/04/19 10:04 07/20/19 06:15 Pancreaze 10,500 Unit FEEDTUBE 1 each PRN PRN Administration For Clogged Feeding Tube Aspirin 81 mg 07/05/19 10:00 07/22/19 09:19 Baby Aspirin PO 81 mg QDAY TAMMIE Administration Dextrose 50 ml 07/04/19 06:54 D50w (25gm) Syringe IV Q30MIN PRN Hypoglycemia Protocol Docusate Sodium 100 mg 07/10/19 10:00 07/22/19 21:07 Colace PO 100 mg BID TAMMIE Administration Famotidine 20 mg 07/17/19 10:00 07/22/19 21:07 Pepcid PO 20 mg BID TAMMIE Administration Fentanyl 50 mcg 07/21/19 15:18 Sublimaze IV Q10MIN PRN ANALGESIA Folic Acid 1 mg 07/05/19 10:00 07/22/19 09:19 Folvite PO 1 mg QDAY TAMMIE Administration Hydrophilic Ointment 1 applic 07/03/19 19:56 07/05/19 17:42 Vaseline Lip Therapy TP 1 applic Q2HR PRN Administration Dry Lips Norepinephrine 4 mg in 250 mls @ 7.5 mls/hr 07/03/19 23:00 07/20/19 01:00 Levophed Drip 4 Mg/Ns 250 Ml IV Infused TITR TAMMIE Titration Protocol 2 MCG/MIN Fentanyl Citrate 2,000 mcg in 100 mls @ 4.75 mls/hr 07/21/19 16:00 07/23/19 05:22 Fentanyl Drip Premix IV 3 mcg/kg/hr TITR TAMMIE 14.25 mls/hr Administration Protocol 1 MCG/KG/HR Insulin Human Lispro 0 unit 07/07/19 12:00 07/23/19 00:03 Humalog SUB-Q Not Given Q6HR TAMMIE Protocol Levetiracetam 750 mg 07/06/19 11:00 07/22/19 21:07 Keppra FEEDTUBE 750 mg Q12HR TAMMIE Administration Metoprolol Tartrate 5 mg 07/12/19 15:08 07/12/19 15:30 Metoprolol IV 5 mg Q6HR PRN Administration Tachyarrhythmias Multi-Ingred Cream/Lotion/Oil/Oint 1 applic 07/03/19 19:56 07/05/19 13:19 Artificial Tears Ophth Oint OU 1 applic Q4HR PRN Administration Dry Eye(s) Naloxone HCl 0.1 mg 07/04/19 04:24 Naloxone IV Q2MIN PRN Res Rate </= 8 or 02 SAT < 92% Oxycodone/Acetaminophen 1 tab 07/19/19 14:17 Percocet 5/325 PO Q4H PRN Pain, Moderate (4-6) Scopolamine 1 each 07/10/19 11:00 07/22/19 10:30 Transderm-Scop TD 1 each Q3D TAMMIE Administration Simple Syrup 15 ml 07/04/19 10:04 07/10/19 21:56 Simple Syrup FEEDTUBE 15 ml PRN PRN Administration Hypoglycemia Simple Syrup 30 ml 07/04/19 10:04 Simple Syrup FEEDTUBE PRN PRN Hypoglycemia Sodium Bicarbonate 325 mg 07/04/19 10:04 07/20/19 10:20 Sodium Bicarbonate FEEDTUBE 325 mg PRN PRN Administration For Clogged Feeding Tube Sodium Chloride 10 ml 07/04/19 10:00 07/22/19 21:13 Sodium Chloride Flush Syringe 10 Ml IV 10 ml BID TAMMIE Administration Sodium Chloride 10 ml 07/04/19 04:24 Sodium Chloride Flush Syringe 10 Ml IV PRN PRN LINE FLUSH Sodium Hypochlorite 1 applic 07/10/19 14:00 07/22/19 21:07 Dakin's Half Strength TP 1 applicatio BID TAMMIE Administration
--- NOTE | 2019-07-23 09:54 | Progress Note ---
Assessment and Plan S/p Cardiopulmonary arrest with ROSC Severe Sepsis with septic shock. Acute hypoxemic respiratory failure on MVS COVID-19 positive with elevated markers Bilateral pneumonia Elevated LFTs. Oropharyngeal dysphagia s/p PEG Acute kidney injury Decubitus ulcers-unstageable Moderate protein calorie malnutriton [id number] metabolic acidosis Leukocytosis -improving Thrombocytosis Microcytic anemia -Discussed with Surgery re ongoing challenges with PEG tube- recommends if it continues to remain a problem, to place NGT and use that. PEG can be addresesd later -Start enoxaparin for VTE prophylaxis- currently has severe thrombocytosis -On Fentanyl infusion -Decrease RR to 14, get ABG in the morning -Will coordinate sedation interruption( RN) and SBT( RT) tomorrow to optimize chances of success with weaning trial -Continue all critical care as documented below -ABG, CXR prn CBC in the am - continue airborne, droplet and contact isolation for COVID-19 - continue wound care per WCT - sedation prn for target RASS 0 to -1 - continue to wean supplemental oxygen for target O2 sat's > 90% - Daily SAT's and SBT assessment as tolerated - VAP bundle addressed - continue lung protective strategies - continue bronchodilators with pulmonary hygiene per RT - wean per pulmonary driven protocols otherwise - accuchecks with glycemic control per SSI (While critically ill target blood glucose of 140-180 mg/dL; avoid hypoglycemia) - continue to avoid benzodiazepines, reduce the possibility of delirium - prn analgesia per CPOT score - Maintenance of sleep-wake cycle, avoid delirium - continue enteral nutritional support at goal rate as tolerated - VTE prophylaxis-SCDs -Stress ulcer prophylaxis- Famotidine - PT/OT/ROM exercises - continue mobility protocol, off loading and skin assessment for pressure ulcer prevention - Monitor hemodynamics closely -Wright catheter in this critically ill patient with unstageable sacral decubitus ulcer -PEG site care - continue other care per attending / other consultants - discharge planning ongoing concurrently .... Re-evaluate in am & prn CONDITION: CRITICAL PROGNOSIS: GUARDED CODE STATUS: DNAR Called his family to discuss goals of care, wants us to continue to treat aggressively at this time. The high probability of a clinically significant, sudden or life-threatening deterioration of the [respiratory & cardiovascular] system(s) required my full and direct attention, intervention and personal management. The aggregate critical care time was [31] minutes without overlap. Time includes spent on; [x] Data Review and interpretation [x] Patient assessment and monitoring of vital signs [x] Documentation [x] Medication orders and management Subjective Date of service: 07/23/19 Principal diagnosis: Bilateral pneumonia, severe sepsis with septic shock, en cephalopathy Interval history: The patient is a 69-year-old male with CVA, hypertension, dementia, schizophrenia, alcohol use disorder was admitted to the emergency room after being brought in by EMS with progressive shortness of breath and unresponsiveness. He was noted to have agonal breathing and a faint pulse requiring CPR. Patient was intubated and brought to the hospital. It seems, patient was on home hospice. Currently, remains critically ill, intubated, on mechanical ventilation. His COVID test resulted positive. Patient is seen today for: s/p cardiopulmonary arrest with ROSC;Ac hypoxemic Resp failure on MVS; Severe sepsis with Shock; Bilateral Pneumonia; POSITIVE coronavirus-19 infection. Seen and examined at bedside; 24hour events reviewed; nursing and respiratory care staff consulted; no adverse overnight events reported to me; resting in bed. No reported fevers. On MVS and tolerating it well; off norepinephrine at 2mcg Tolerating tube feedings, no diarrhea, Mental status changes persist NO fevers, Ddi not tolerate PSV trials today- hypoventilatory Current setting AC-VC 16/500/30%/PEEP 6 Objective Vital Signs - 12hr 07/22/19 07/22/19 07/22/19 22:00 22:15 22:30 Temperature Pulse Rate 128 H 128 H 127 H Pulse Rate [ From Monitor] Respiratory 19 23 21 Rate Blood Pressure 137/72 136/77 135/73 O2 Sat by Pulse 100 99 99 Oximetry 07/22/19 07/22/19 07/22/19 22:45 22:59 23:00 Temperature Pulse Rate 127 H 127 H 124 H Pulse Rate [ From Monitor] Respiratory 21 13 20 Rate Blood Pressure 135/70 135/70 130/75 O2 Sat by Pulse 100 100 100 Oximetry 07/22/19 07/22/19 07/22/19 23:08 23:15 23:30 Temperature Pulse Rate 125 H 126 H 128 H Pulse Rate [ From Monitor] Respiratory 18 21 21 Rate Blood Pressure 135/73 134/69 129/67 O2 Sat by Pulse 100 100 100 Oximetry 07/22/19 07/23/19 07/23/19 23:45 00:00 00:14 Temperature 99.0 F Pulse Rate 126 H 126 H 126 H Pulse Rate [ 126 H From Monitor] Respiratory 20 21 Rate Blood Pressure 135/76 134/71 134/71 O2 Sat by Pulse 100 100 100 Oximetry 07/23/19 07/23/19 07/23/19 00:15 00:30 00:45 Temperature Pulse Rate 124 H 126 H 125 H Pulse Rate [ From Monitor] Respiratory 20 21 22 Rate Blood Pressure 131/77 133/73 131/72 O2 Sat by Pulse 100 100 100 Oximetry 07/23/19 07/23/19 07/23/19 01:00 01:15 01:30 Temperature Pulse Rate 127 H 124 H 123 H Pulse Rate [ From Monitor] Respiratory 19 21 20 Rate Blood Pressure 133/71 131/72 133/67 O2 Sat by Pulse 100 100 100 Oximetry 07/23/19 07/23/19 07/23/19 01:46 02:00 02:16 Temperature Pulse Rate 126 H 125 H 124 H Pulse Rate [ From Monitor] Respiratory 18 20 17 Rate Blood Pressure 147/81 135/73 135/73 O2 Sat by Pulse 95 100 100 Oximetry 07/23/19 07/23/19 07/23/19 02:30 02:46 03:00 Temperature Pulse Rate 119 H 118 H 118 H Pulse Rate [ From Monitor] Respiratory 20 20 20 Rate Blood Pressure 135/73 135/73 135/73 O2 Sat by Pulse 100 77 L Oximetry 07/23/19 07/23/19 07/23/19 03:16 03:30 03:46 Temperature Pulse Rate 117 H 117 H 117 H Pulse Rate [ From Monitor] Respiratory 20 20 20 Rate Blood Pressure 124/64 127/63 127/63 O2 Sat by Pulse 100 100 100 Oximetry 07/23/19 07/23/19 07/23/19 04:00 04:16 04:30 Temperature 98.7 F Pulse Rate 114 H 114 H 112 H Pulse Rate [ 114 H From Monitor] Respiratory 20 20 20 Rate Blood Pressure 120/66 127/63 130/69 O2 Sat by Pulse 99 99 100 Oximetry 07/23/19 07/23/19 07/23/19 04:36 04:46 05:00 Temperature Pulse Rate 112 H 114 H 115 H Pulse Rate [ From Monitor] Respiratory 16 16 Rate Blood Pressure 130/69 130/69 120/65 O2 Sat by Pulse 98 99 100 Oximetry 07/23/19 07/23/19 07/23/19 05:16 05:30 05:46 Temperature Pulse Rate 115 H 115 H 115 H Pulse Rate [ From Monitor] Respiratory 16 16 16 Rate Blood Pressure 120/65 120/65 125/66 O2 Sat by Pulse 99 100 100 Oximetry 07/23/19 07/23/19 07/23/19 06:00 06:16 06:30 Temperature Pulse Rate 115 H 115 H 114 H Pulse Rate [ From Monitor] Respiratory 15 19 18 Rate Blood Pressure 122/64 122/64 126/67 O2 Sat by Pulse 100 100 100 Oximetry 07/23/19 08:00 Temperature Pulse Rate 112 H Pulse Rate [ From Monitor] Respiratory Rate Blood Pressure 120/61 O2 Sat by Pulse 100 Oximetry Constitutional: appears uncomfortable, other (eelderly and chronically ill looking AAM, normocep[krystina;ic with mildly increased respiratory effort at rest) Eyes: non-icteric ENT: oropharynx moist, other (ETT 24 cm RTUH) Neck: supple, no lymphadenopathy, no JVD Effort: very labored Ascultation: Bilateral: diminished breath sounds, rhonchi Percussion: Bilateral: not dull Cardiovascular: regular rate and rhythm Gastrointestinal: normoactive bowel sounds, soft, non-tender, non-distended, other (+ PEG tube with mild TF leakage) Integumentary: decubitus ulcer Extremities: no cyanosis, no edema, pink and warm, pulses normal Neurologic: unable to assess Psychiatric: other (Unable to assess re: AMS) CBC and BMP: 07/22/19 05:38 07/23/19 04:52 ABG, PT/INR, D-dimer: ABG ABG pH 7.359 pH Units (7.350-7.450) 07/23/19 06:00 ABG pCO2 48.9 mm Hg 07/23/19 06:00 ABG pO2 80.4 mm Hg (80.0-90.0) 07/23/19 06:00 ABG O2 Saturation 95.9 % (95.0-99.0) 07/23/19 06:00 PT/INR, D-dimer PT 16.0 Sec. (12.2-14.9) H 07/03/19 22:20 INR 1.26 (0.87-1.13) H 07/03/19 22:20 D-Dimer 1142.18 ng/mlDDU (0-234) H 07/08/19 00:45 Abnormal lab findings: Abnormal Labs 07/03/19 07/03/19 07/03/19 19:57 21:10 21:13 WBC RBC Hgb Hct MCV MCH MCHC RDW Plt Count Lymph % (Auto) [place] % (Auto) Lymph # [place] # Baso # Seg Neutrophils % Seg Neuts % (Manual) Lymphocytes % (Manual) Monocytes % (Manual) Nucleated RBC % Seg Neutrophils # Seg Neutrophils # Man Lymphocytes # (Manual) Monocytes # (Manual) PT INR D-Dimer ABG pH 7.238 L ABG pO2 210.8 H ABG HCO3 15.4 L ABG O2 Saturation 99.2 H ABG Base Excess -11.1 L ABG Hemoglobin 8.0 L Oxyhemoglobin Sodium 124 L Potassium Chloride 92.9 L Carbon Dioxide 10 L BUN 23 H Creatinine 0.5 L Glucose 118 H POC Glucose Lactic Acid Calcium 7.0 L Magnesium Iron TIBC Ferritin AST 70 H ALT 88 H Lactate Dehydrogenase Troponin T 0.032 H C-Reactive Protein Total Protein 5.0 L Albumin 1.8 L Cholesterol 47 L LDL Cholesterol Direct 25 L HDL Cholesterol 20 L Urine WBC (Auto) 12.0 H Vancomycin Trough Coronavirus (PCR) Crossmatch 07/03/19 07/03/19 07/03/19 22:20 22:20 22:20 WBC 30.5 H RBC 2.96 L Hgb 7.7 L Hct 23.9 L MCV 81 L MCH 26 L MCHC RDW 18.6 H Plt Count 459 H Lymph % (Auto) [place] % (Auto) Lymph # [place] # Baso # Seg Neutrophils % Seg Neuts % (Manual) 93.0 H Lymphocytes % (Manual) 0.5 L Monocytes % (Manual) Nucleated RBC % Seg Neutrophils # Seg Neutrophils # Man 28.4 H Lymphocytes # (Manual) 0.2 L Monocytes # (Manual) PT 16.0 H INR 1.26 H D-Dimer ABG pH ABG pO2 ABG HCO3 ABG O2 Saturation ABG Base Excess ABG Hemoglobin Oxyhemoglobin Sodium Potassium Chloride Carbon Dioxide BUN Creatinine Glucose POC Glucose Lactic Acid 6.90 H* Calcium Magnesium Iron TIBC Ferritin AST ALT Lactate Dehydrogenase Troponin T C-Reactive Protein Total Protein Albumin Cholesterol LDL Cholesterol Direct HDL Cholesterol Urine WBC (Auto) Vancomycin Trough Coronavirus (PCR) Crossmatch 07/03/19 07/04/19 07/04/19 23:58 05:15 07:05 WBC 17.1 H RBC 3.22 L Hgb 8.3 L Hct 25.4 L MCV 79 L MCH 26 L MCHC RDW 18.6 H Plt Count Lymph % (Auto) [place] % (Auto) Lymph # [place] # Baso # Seg Neutrophils % Seg Neuts % (Manual) 74.0 H Lymphocytes % (Manual) 0 L Monocytes % (Manual) Nucleated RBC % Seg Neutrophils # Seg Neutrophils # Man 12.7 H Lymphocytes # (Manual) 0.0 L Monocytes # (Manual) PT INR D-Dimer ABG pH 7.310 L ABG pO2 73.2 L ABG HCO3 17.8 L ABG O2 Saturation 93.8 L ABG Base Excess -7.7 L ABG Hemoglobin 9.6 L Oxyhemoglobin 92.3 L Sodium Potassium Chloride Carbon Dioxide BUN Creatinine Glucose POC Glucose Lactic Acid 7.10 H* Calcium Magnesium Iron TIBC Ferritin AST ALT Lactate Dehydrogenase Troponin T C-Reactive Protein Total Protein Albumin Cholesterol LDL Cholesterol Direct HDL Cholesterol Urine WBC (Auto) Vancomycin Trough Coronavirus (PCR) Crossmatch 07/04/19 07/04/19 07/04/19 07:05 07:05 07:05 WBC RBC Hgb Hct MCV MCH MCHC RDW Plt Count Lymph % (Auto) [place] % (Auto) Lymph # [place] # Baso # Seg Neutrophils % Seg Neuts % (Manual) Lymphocytes % (Manual) Monocytes % (Manual) Nucleated RBC % Seg Neutrophils # Seg Neutrophils # Man Lymphocytes # (Manual) Monocytes # (Manual) PT INR D-Dimer ABG pH ABG pO2 ABG HCO3 ABG O2 Saturation ABG Base Excess ABG Hemoglobin Oxyhemoglobin Sodium 120 L Potassium 5.1 H Chloride 90.0 L Carbon Dioxide 14 L BUN 26 H Creatinine 0.5 L Glucose POC Glucose Lactic Acid 3.30 H* Calcium 8.0 L Magnesium Iron 9 L TIBC 97 L Ferritin AST 73 H ALT 91 H Lactate Dehydrogenase Troponin T C-Reactive Protein Total Protein 5.5 L Albumin 2.0 L Cholesterol LDL Cholesterol Direct HDL Cholesterol Urine WBC (Auto) Vancomycin Trough Coronavirus (PCR) Crossmatch 04/07/04/19 07/04/19 09:39 09:39 09:39 WBC RBC Hgb Hct MCV MCH MCHC RDW Plt Count Lymph % (Auto) [place] % (Auto) Lymph # [place] # Baso # Seg Neutrophils % Seg Neuts % (Manual) Lymphocytes % (Manual) Monocytes % (Manual) Nucleated RBC % Seg Neutrophils # Seg Neutrophils # Man Lymphocytes # (Manual) Monocytes # (Manual) PT INR D-Dimer 1419.14 H ABG pH ABG pO2 ABG HCO3 ABG O2 Saturation ABG Base Excess ABG Hemoglobin Oxyhemoglobin Sodium Potassium Chloride Carbon Dioxide BUN Creatinine Glucose POC Glucose Lactic Acid Calcium Magnesium Iron TIBC Ferritin 1719.0 H AST ALT Lactate Dehydrogenase 234 H Troponin T C-Reactive Protein 15.50 H Total Protein Albumin Cholesterol LDL Cholesterol Direct HDL Cholesterol Urine WBC (Auto) Vancomycin Trough Coronavirus (PCR) Crossmatch 07/04/19 07/04/19 07/04/19 10:09 18:08 18:28 WBC RBC Hgb Hct MCV MCH MCHC RDW Plt Count Lymph % (Auto) [place] % (Auto) Lymph # [place] # Baso # Seg Neutrophils % Seg Neuts % (Manual) Lymphocytes % (Manual) Monocytes % (Manual) Nucleated RBC % Seg Neutrophils # Seg Neutrophils # Man Lymphocytes # (Manual) Monocytes # (Manual) PT INR D-Dimer ABG pH ABG pO2 ABG HCO3 ABG O2 Saturation ABG Base Excess ABG Hemoglobin Oxyhemoglobin Sodium 117 L* Potassium 5.6 H Chloride 90.3 L Carbon Dioxide 16 L BUN 28 H Creatinine 0.5 L Glucose 58 L POC Glucose 65 L Lactic Acid Calcium 8.2 L Magnesium Iron TIBC Ferritin AST ALT Lactate Dehydrogenase Troponin T C-Reactive Protein Total Protein Albumin Cholesterol LDL Cholesterol Direct HDL Cholesterol Urine WBC (Auto) Vancomycin Trough Coronavirus (PCR) Positive A Crossmatch 07/04/19 07/04/19 07/04/19 23:45 Unknown Unknown WBC RBC Hgb Hct MCV MCH MCHC RDW Plt Count Lymph % (Auto) [place] % (Auto) Lymph # [place] # Baso # Seg Neutrophils % Seg Neuts % (Manual) Lymphocytes % (Manual) Monocytes % (Manual) Nucleated RBC % Seg Neutrophils # Seg Neutrophils # Man Lymphocytes # (Manual) Monocytes # (Manual) PT INR D-Dimer 759.77 H ABG pH ABG pO2 ABG HCO3 ABG O2 Saturation ABG Base Excess ABG Hemoglobin Oxyhemoglobin Sodium 122 L Potassium Chloride 93.0 L Carbon Dioxide 19 L BUN 27 H Creatinine 0.5 L Glucose POC Glucose Lactic Acid Calcium 8.3 L Magnesium Iron TIBC Ferritin 1301.0 H AST ALT Lactate Dehydrogenase Troponin T C-Reactive Protein Total Protein Albumin Cholesterol LDL Cholesterol Direct HDL Cholesterol Urine WBC (Auto) Vancomycin Trough Coronavirus (PCR) Crossmatch 07/04/19 07/05/19 07/05/19 Unknown 03:20 04:00 WBC RBC Hgb Hct MCV MCH MCHC RDW Plt Count Lymph % (Auto) [place] % (Auto) Lymph # [place] # Baso # Seg Neutrophils % Seg Neuts % (Manual) Lymphocytes % (Manual) Monocytes % (Manual) Nucleated RBC % Seg Neutrophils # Seg Neutrophils # Man Lymphocytes # (Manual) Monocytes # (Manual) PT INR D-Dimer ABG pH ABG pO2 60.6 L ABG HCO3 ABG O2 Saturation 93.5 L ABG Base Excess -2.4 L ABG Hemoglobin 6.9 L Oxyhemoglobin 92.0 L Sodium 125 L Potassium Chloride 92.6 L Carbon Dioxide 19 L BUN 24 H Creatinine 0.6 L Glucose POC Glucose Lactic Acid Calcium 8.2 L Magnesium 1.40 L Iron TIBC Ferritin AST ALT Lactate Dehydrogenase 242 H Troponin T C-Reactive Protein 16.70 H Total Protein Albumin Cholesterol LDL Cholesterol Direct HDL Cholesterol Urine WBC (Auto) Vancomycin Trough Coronavirus (PCR) Crossmatch 07/05/19 07/05/19 07/05/19 10:11 16:15 17:54 WBC 46.4 H* RBC 2.77 L Hgb 7.2 L Hct 21.9 L MCV 79 L MCH 26 L MCHC RDW 19.0 H Plt Count Lymph % (Auto) [place] % (Auto) Lymph # [place] # Baso # Seg Neutrophils % Seg Neuts % (Manual) 82.0 H Lymphocytes % (Manual) 1.0 L Monocytes % (Manual) Nucleated RBC % Seg Neutrophils # Seg Neutrophils # Man 38.0 H Lymphocytes # (Manual) 0.5 L Monocytes # (Manual) PT INR D-Dimer ABG pH ABG pO2 ABG HCO3 ABG O2 Saturation ABG Base Excess ABG Hemoglobin Oxyhemoglobin Sodium Potassium Chloride Carbon Dioxide BUN Creatinine Glucose POC Glucose 69 L Lactic Acid Calcium Magnesium Iron TIBC Ferritin AST ALT Lactate Dehydrogenase Troponin T C-Reactive Protein Total Protein Albumin Cholesterol LDL Cholesterol Direct HDL Cholesterol Urine WBC (Auto) Vancomycin Trough 23.2 H Coronavirus (PCR) Crossmatch 07/05/19 07/06/19 07/06/19 19:58 00:27 00:27 WBC RBC Hgb Hct MCV MCH MCHC RDW Plt Count Lymph % (Auto) [place] % (Auto) Lymph # [place] # Baso # Seg Neutrophils % Seg Neuts % (Manual) Lymphocytes % (Manual) Monocytes % (Manual) Nucleated RBC % Seg Neutrophils # Seg Neutrophils # Man Lymphocytes # (Manual) Monocytes # (Manual) PT INR D-Dimer 1333.22 H ABG pH ABG pO2 ABG HCO3 ABG O2 Saturation ABG Base Excess ABG Hemoglobin Oxyhemoglobin Sodium 127 L Potassium Chloride Carbon Dioxide BUN Creatinine Glucose POC Glucose Lactic Acid Calcium Magnesium Iron TIBC Ferritin 977.1 H AST ALT Lactate Dehydrogenase Troponin T C-Reactive Protein Total Protein Albumin Cholesterol LDL Cholesterol Direct HDL Cholesterol Urine WBC (Auto) Vancomycin Trough Coronavirus (PCR) Crossmatch 07/06/19 07/06/19 07/06/19 00:27 02:00 02:56 WBC RBC Hgb Hct MCV MCH MCHC RDW Plt Count Lymph % (Auto) [place] % (Auto) Lymph # [place] # Baso # Seg Neutrophils % Seg Neuts % (Manual) Lymphocytes % (Manual) Monocytes % (Manual) Nucleated RBC % Seg Neutrophils # Seg Neutrophils # Man Lymphocytes # (Manual) Monocytes # (Manual) PT INR D-Dimer ABG pH ABG pO2 70.3 L ABG HCO3 ABG O2 Saturation 94.8 L ABG Base Excess ABG Hemoglobin 8.0 L Oxyhemoglobin 93.2 L Sodium Potassium Chloride Carbon Dioxide BUN Creatinine Glucose POC Glucose 117 H Lactic Acid Calcium Magnesium Iron TIBC Ferritin AST ALT Lactate Dehydrogenase 236 H Troponin T C-Reactive Protein 22.90 H Total Protein Albumin Cholesterol LDL Cholesterol Direct HDL Cholesterol Urine WBC (Auto) Vancomycin Trough Coronavirus (PCR) Crossmatch 07/06/19 07/06/19 07/06/19 03:49 03:49 07:40 WBC 38.8 H RBC 2.51 L Hgb 6.7 L Hct 19.9 L* MCV 79 L MCH 27 L MCHC RDW 19.2 H Plt Count Lymph % (Auto) [place] % (Auto) Lymph # [place] # Baso # Seg Neutrophils % Seg Neuts % (Manual) 90.5 H Lymphocytes % (Manual) 1.0 L Monocytes % (Manual) Nucleated RBC % Seg Neutrophils # Seg Neutrophils # Man 35.1 H Lymphocytes # (Manual) 0.4 L Monocytes # (Manual) PT INR D-Dimer ABG pH ABG pO2 ABG HCO3 ABG O2 Saturation ABG Base Excess ABG Hemoglobin Oxyhemoglobin Sodium 131 L Potassium Chloride 96.9 L Carbon Dioxide 18 L BUN 23 H Creatinine 0.5 L Glucose POC Glucose Lactic Acid Calcium 8.0 L Magnesium Iron TIBC Ferritin AST ALT Lactate Dehydrogenase Troponin T C-Reactive Protein Total Protein Albumin Cholesterol LDL Cholesterol Direct HDL Cholesterol Urine WBC (Auto) Vancomycin Trough Coronavirus (PCR) Crossmatch See Detail 07/06/19 07/06/19 07/06/19 12:38 14:39 20:00 WBC RBC Hgb Hct MCV MCH MCHC RDW Plt Count Lymph % (Auto) [place] % (Auto) Lymph # [place] # Baso # Seg Neutrophils % Seg Neuts % (Manual) Lymphocytes % (Manual) Monocytes % (Manual) Nucleated RBC % Seg Neutrophils # Seg Neutrophils # Man Lymphocytes # (Manual) Monocytes # (Manual) PT INR D-Dimer ABG pH ABG pO2 ABG HCO3 ABG O2 Saturation ABG Base Excess ABG Hemoglobin Oxyhemoglobin Sodium Potassium Chloride Carbon Dioxide BUN Creatinine Glucose POC Glucose 112 H 111 H 140 H Lactic Acid Calcium Magnesium Iron TIBC Ferritin AST ALT Lactate Dehydrogenase Troponin T C-Reactive Protein Total Protein Albumin Cholesterol LDL Cholesterol Direct HDL Cholesterol Urine WBC (Auto) Vancomycin Trough Coronavirus (PCR) Crossmatch 07/06/19 07/06/19 07/07/19 22:43 22:56 02:20 WBC RBC Hgb 7.9 L Hct 23.1 L MCV MCH MCHC RDW Plt Count Lymph % (Auto) [place] % (Auto) Lymph # [place] # Baso # Seg Neutrophils % Seg Neuts % (Manual) Lymphocytes % (Manual) Monocytes % (Manual) Nucleated RBC % Seg Neutrophils # Seg Neutrophils # Man Lymphocytes # (Manual) Monocytes # (Manual) PT INR D-Dimer ABG pH ABG pO2 ABG HCO3 ABG O2 Saturation ABG Base Excess ABG Hemoglobin Oxyhemoglobin Sodium Potassium Chloride Carbon Dioxide BUN Creatinine Glucose POC Glucose 122 H 149 H Lactic Acid Calcium Magnesium Iron TIBC Ferritin AST ALT Lactate Dehydrogenase Troponin T C-Reactive Protein Total Protein Albumin Cholesterol LDL Cholesterol Direct HDL Cholesterol Urine WBC (Auto) Vancomycin Trough Coronavirus (PCR) Crossmatch 07/07/19 07/07/19 07/07/19 04:35 05:27 05:34 WBC 23.1 H RBC 3.00 L Hgb 8.1 L Hct 24.2 L MCV 81 L MCH 27 L MCHC RDW 20.6 H Plt Count Lymph % (Auto) [place] % (Auto) Lymph # [place] # Baso # Seg Neutrophils % Seg Neuts % (Manual) 90.0 H Lymphocytes % (Manual) 2.0 L Monocytes % (Manual) Nucleated RBC % Seg Neutrophils # Seg Neutrophils # Man 20.8 H Lymphocytes # (Manual) 0.5 L Monocytes # (Manual) PT INR D-Dimer ABG pH ABG pO2 65.8 L ABG HCO3 ABG O2 Saturation 92.2 L ABG Base Excess ABG Hemoglobin 8.3 L Oxyhemoglobin 90.6 L Sodium Potassium Chloride Carbon Dioxide BUN Creatinine Glucose POC Glucose 132 H Lactic Acid Calcium Magnesium Iron TIBC Ferritin AST ALT Lactate Dehydrogenase Troponin T C-Reactive Protein Total Protein Albumin Cholesterol LDL Cholesterol Direct HDL Cholesterol Urine WBC (Auto) Vancomycin Trough Coronavirus (PCR) Crossmatch 07/07/19 07/07/19 07/07/19 05:34 11:50 15:58 WBC RBC Hgb 8.1 L Hct 24.2 L MCV MCH MCHC RDW Plt Count Lymph % (Auto) [place] % (Auto) Lymph # [place] # Baso # Seg Neutrophils % Seg Neuts % (Manual) Lymphocytes % (Manual) Monocytes % (Manual) Nucleated RBC % Seg Neutrophils # Seg Neutrophils # Man Lymphocytes # (Manual) Monocytes # (Manual) PT INR D-Dimer ABG pH ABG pO2 ABG HCO3 ABG O2 Saturation ABG Base Excess ABG Hemoglobin Oxyhemoglobin Sodium 135 L Potassium 3.3 L Chloride Carbon Dioxide 20 L BUN 27 H Creatinine 0.6 L Glucose 121 H POC Glucose 123 H Lactic Acid Calcium 8.0 L Magnesium Iron TIBC Ferritin AST ALT Lactate Dehydrogenase Troponin T C-Reactive Protein Total Protein Albumin Cholesterol LDL Cholesterol Direct HDL Cholesterol Urine WBC (Auto) Vancomycin Trough Coronavirus (PCR) Crossmatch 07/07/19 07/07/19 07/07/19 17:42 22:00 23:53 WBC RBC Hgb 8.0 L Hct 23.4 L MCV MCH MCHC RDW Plt Count Lymph % (Auto) [place] % (Auto) Lymph # [place] # Baso # Seg Neutrophils % Seg Neuts % (Manual) Lymphocytes % (Manual) Monocytes % (Manual) Nucleated RBC % Seg Neutrophils # Seg Neutrophils # Man Lymphocytes # (Manual) Monocytes # (Manual) PT INR D-Dimer ABG pH ABG pO2 ABG HCO3 ABG O2 Saturation ABG Base Excess ABG Hemoglobin Oxyhemoglobin Sodium Potassium Chloride Carbon Dioxide BUN Creatinine Glucose POC Glucose 107 H 117 H Lactic Acid Calcium Magnesium Iron TIBC Ferritin AST ALT Lactate Dehydrogenase Troponin T C-Reactive Protein Total Protein Albumin Cholesterol LDL Cholesterol Direct HDL Cholesterol Urine WBC (Auto) Vancomycin Trough Coronavirus (PCR) Crossmatch 07/08/19 07/08/19 07/08/19 00:45 00:45 00:45 WBC RBC Hgb Hct MCV MCH MCHC RDW Plt Count Lymph % (Auto) [place] % (Auto) Lymph # [place] # Baso # Seg Neutrophils % Seg Neuts % (Manual) Lymphocytes % (Manual) Monocytes % (Manual) Nucleated RBC % Seg Neutrophils # Seg Neutrophils # Man Lymphocytes # (Manual) Monocytes # (Manual) PT INR D-Dimer 1142.18 H ABG pH ABG pO2 ABG HCO3 ABG O2 Saturation ABG Base Excess ABG Hemoglobin Oxyhemoglobin Sodium Potassium Chloride Carbon Dioxide BUN Creatinine Glucose POC Glucose Lactic Acid Calcium Magnesium Iron TIBC Ferritin 839.0 H AST ALT Lactate Dehydrogenase 253 H Troponin T C-Reactive Protein 18.90 H Total Protein Albumin Cholesterol LDL Cholesterol Direct HDL Cholesterol Urine WBC (Auto) Vancomycin Trough Coronavirus (PCR) Crossmatch 07/08/19 07/08/19 07/08/19 04:30 05:11 12:02 WBC RBC Hgb Hct MCV MCH MCHC RDW Plt Count Lymph % (Auto) [place] % (Auto) Lymph # [place] # Baso # Seg Neutrophils % Seg Neuts % (Manual) Lymphocytes % (Manual) Monocytes % (Manual) Nucleated RBC % Seg Neutrophils # Seg Neutrophils # Man Lymphocytes # (Manual) Monocytes # (Manual) PT INR D-Dimer ABG pH ABG pO2 66.0 L ABG HCO3 ABG O2 Saturation 92.3 L ABG Base Excess ABG Hemoglobin 7.7 L Oxyhemoglobin 90.7 L Sodium Potassium Chloride Carbon Dioxide BUN Creatinine Glucose POC Glucose 108 H 153 H Lactic Acid Calcium Magnesium Iron TIBC Ferritin AST ALT Lactate Dehydrogenase Troponin T C-Reactive Protein Total Protein Albumin Cholesterol LDL Cholesterol Direct HDL Cholesterol Urine WBC (Auto) Vancomycin Trough Coronavirus (PCR) Crossmatch 07/08/19 07/08/19 07/08/19 16:15 18:22 23:35 WBC RBC Hgb Hct MCV MCH MCHC RDW Plt Count Lymph % (Auto) [place] % (Auto) Lymph # [place] # Baso # Seg Neutrophils % Seg Neuts % (Manual) Lymphocytes % (Manual) Monocytes % (Manual) Nucleated RBC % Seg Neutrophils # Seg Neutrophils # Man Lymphocytes # (Manual) Monocytes # (Manual) PT INR D-Dimer ABG pH ABG pO2 ABG HCO3 ABG O2 Saturation ABG Base Excess ABG Hemoglobin Oxyhemoglobin Sodium 134 L Potassium 3.3 L Chloride Carbon Dioxide 21 L BUN 27 H Creatinine 0.6 L Glucose 146 H POC Glucose 134 H 133 H Lactic Acid Calcium Magnesium Iron TIBC Ferritin AST ALT Lactate Dehydrogenase Troponin T C-Reactive Protein Total Protein Albumin Cholesterol LDL Cholesterol Direct HDL Cholesterol Urine WBC (Auto) Vancomycin Trough Coronavirus (PCR) Crossmatch 07/09/19 07/09/19 07/09/19 04:30 04:30 05:00 WBC 18.9 H RBC 2.77 L Hgb 7.4 L Hct 22.8 L MCV 82 L MCH 27 L MCHC RDW 20.9 H Plt Count 130 L Lymph % (Auto) [place] % (Auto) Lymph # [place] # Baso # Seg Neutrophils % Seg Neuts % (Manual) 84.0 H Lymphocytes % (Manual) 0 L Monocytes % (Manual) Nucleated RBC % Seg Neutrophils # Seg Neutrophils # Man 15.9 H Lymphocytes # (Manual) 0.0 L Monocytes # (Manual) PT INR D-Dimer ABG pH ABG pO2 ABG HCO3 ABG O2 Saturation ABG Base Excess ABG Hemoglobin Oxyhemoglobin Sodium Potassium 3.1 L Chloride Carbon Dioxide BUN 26 H Creatinine 0.5 L Glucose 125 H POC Glucose 155 H Lactic Acid Calcium Magnesium Iron TIBC Ferritin AST ALT Lactate Dehydrogenase Troponin T C-Reactive Protein Total Protein Albumin Cholesterol LDL Cholesterol Direct HDL Cholesterol Urine WBC (Auto) Vancomycin Trough Coronavirus (PCR) Crossmatch 07/09/19 07/09/19 07/09/19 05:55 12:22 17:50 WBC RBC Hgb Hct MCV MCH MCHC RDW Plt Count Lymph % (Auto) [place] % (Auto) Lymph # [place] # Baso # Seg Neutrophils % Seg Neuts % (Manual) Lymphocytes % (Manual) Monocytes % (Manual) Nucleated RBC % Seg Neutrophils # Seg Neutrophils # Man Lymphocytes # (Manual) Monocytes # (Manual) PT INR D-Dimer ABG pH ABG pO2 62.8 L ABG HCO3 ABG O2 Saturation ABG Base Excess ABG Hemoglobin 6.1 L Oxyhemoglobin 93.9 L Sodium Potassium Chloride Carbon Dioxide BUN Creatinine Glucose POC Glucose 115 H 133 H Lactic Acid Calcium Magnesium Iron TIBC Ferritin AST ALT Lactate Dehydrogenase Troponin T C-Reactive Protein Total Protein Albumin Cholesterol LDL Cholesterol Direct HDL Cholesterol Urine WBC (Auto) Vancomycin Trough Coronavirus (PCR) Crossmatch 07/10/19 07/10/19 07/10/19 00:38 04:00 04:00 WBC RBC Hgb Hct MCV MCH MCHC RDW Plt Count Lymph % (Auto) [place] % (Auto) Lymph # [place] # Baso # Seg Neutrophils % Seg Neuts % (Manual) Lymphocytes % (Manual) Monocytes % (Manual) Nucleated RBC % Seg Neutrophils # Seg Neutrophils # Man Lymphocytes # (Manual) Monocytes # (Manual) PT INR D-Dimer ABG pH ABG pO2 ABG HCO3 ABG O2 Saturation ABG Base Excess ABG Hemoglobin Oxyhemoglobin Sodium Potassium Chloride 107.9 H Carbon Dioxide BUN 26 H Creatinine 0.4 L Glucose 137 H POC Glucose 122 H Lactic Acid Calcium Magnesium 1.50 L Iron TIBC Ferritin AST ALT Lactate Dehydrogenase 277 H Troponin T C-Reactive Protein 15.10 H Total Protein Albumin Cholesterol LDL Cholesterol Direct HDL Cholesterol Urine WBC (Auto) Vancomycin Trough Coronavirus (PCR) Crossmatch 07/10/19 07/10/19 07/10/19 04:07 05:21 17:25 WBC RBC Hgb Hct MCV MCH MCHC RDW Plt Count Lymph % (Auto) [place] % (Auto) Lymph # [place] # Baso # Seg Neutrophils % Seg Neuts % (Manual) Lymphocytes % (Manual) Monocytes % (Manual) Nucleated RBC % Seg Neutrophils # Seg Neutrophils # Man Lymphocytes # (Manual) Monocytes # (Manual) PT INR D-Dimer ABG pH ABG pO2 65.6 L ABG HCO3 26.3 H ABG O2 Saturation ABG Base Excess ABG Hemoglobin 6.7 L Oxyhemoglobin Sodium Potassium Chloride Carbon Dioxide BUN Creatinine Glucose POC Glucose 144 H 113 H Lactic Acid Calcium Magnesium Iron TIBC Ferritin AST ALT Lactate Dehydrogenase Troponin T C-Reactive Protein Total Protein Albumin Cholesterol LDL Cholesterol Direct HDL Cholesterol Urine WBC (Auto) Vancomycin Trough Coronavirus (PCR) Crossmatch 07/11/19 07/11/19 07/11/19 00:07 05:14 05:25 WBC RBC Hgb Hct MCV MCH MCHC RDW Plt Count Lymph % (Auto) [place] % (Auto) Lymph # [place] # Baso # Seg Neutrophils % Seg Neuts % (Manual) Lymphocytes % (Manual) Monocytes % (Manual) Nucleated RBC % Seg Neutrophils # Seg Neutrophils # Man Lymphocytes # (Manual) Monocytes # (Manual) PT INR D-Dimer ABG pH ABG pO2 ABG HCO3 ABG O2 Saturation ABG Base Excess ABG Hemoglobin 5.8 L Oxyhemoglobin Sodium Potassium Chloride 108.0 H Carbon Dioxide BUN 26 H Creatinine 0.4 L Glucose 110 H POC Glucose 121 H Lactic Acid Calcium Magnesium Iron TIBC Ferritin AST ALT Lactate Dehydrogenase Troponin T C-Reactive Protein Total Protein Albumin Cholesterol LDL Cholesterol Direct HDL Cholesterol Urine WBC (Auto) Vancomycin Trough Coronavirus (PCR) Crossmatch 07/11/19 07/11/19 07/11/19 12:27 18:00 23:42 WBC RBC Hgb Hct MCV MCH MCHC RDW Plt Count Lymph % (Auto) [place] % (Auto) Lymph # [place] # Baso # Seg Neutrophils % Seg Neuts % (Manual) Lymphocytes % (Manual) Monocytes % (Manual) Nucleated RBC % Seg Neutrophils # Seg Neutrophils # Man Lymphocytes # (Manual) Monocytes # (Manual) PT INR D-Dimer ABG pH ABG pO2 ABG HCO3 ABG O2 Saturation ABG Base Excess ABG Hemoglobin Oxyhemoglobin Sodium Potassium Chloride Carbon Dioxide BUN Creatinine Glucose POC Glucose 158 H 141 H 142 H Lactic Acid Calcium Magnesium Iron TIBC Ferritin AST ALT Lactate Dehydrogenase Troponin T C-Reactive Protein Total Protein Albumin Cholesterol LDL Cholesterol Direct HDL Cholesterol Urine WBC (Auto) Vancomycin Trough Coronavirus (PCR) Crossmatch 07/12/19 07/12/19 07/12/19 04:46 04:46 05:23 WBC 23.6 H RBC 2.51 L Hgb 6.7 L Hct 20.8 L MCV 83 L MCH 27 L MCHC RDW 20.3 H Plt Count Lymph % (Auto) [place] % (Auto) Lymph # [place] # Baso # Seg Neutrophils % Seg Neuts % (Manual) 94.0 H Lymphocytes % (Manual) 4.0 L Monocytes % (Manual) Nucleated RBC % Seg Neutrophils # Seg Neutrophils # Man 22.2 H Lymphocytes # (Manual) 0.9 L Monocytes # (Manual) PT INR D-Dimer ABG pH ABG pO2 ABG HCO3 ABG O2 Saturation ABG Base Excess ABG Hemoglobin Oxyhemoglobin Sodium Potassium Chloride 107.1 H Carbon Dioxide BUN 25 H Creatinine 0.4 L Glucose 122 H POC Glucose 118 H Lactic Acid Calcium Magnesium Iron TIBC Ferritin AST ALT Lactate Dehydrogenase Troponin T C-Reactive Protein Total Protein Albumin Cholesterol LDL Cholesterol Direct HDL Cholesterol Urine WBC (Auto) Vancomycin Trough Coronavirus (PCR) Crossmatch 07/12/19 07/12/19 07/12/19 08:49 11:36 18:15 WBC RBC Hgb Hct MCV MCH MCHC RDW Plt Count Lymph % (Auto) [place] % (Auto) Lymph # [place] # Baso # Seg Neutrophils % Seg Neuts % (Manual) Lymphocytes % (Manual) Monocytes % (Manual) Nucleated RBC % Seg Neutrophils # Seg Neutrophils # Man Lymphocytes # (Manual) Monocytes # (Manual) PT INR D-Dimer ABG pH ABG pO2 ABG HCO3 ABG O2 Saturation ABG Base Excess ABG Hemoglobin Oxyhemoglobin Sodium Potassium Chloride Carbon Dioxide BUN Creatinine Glucose POC Glucose 124 H 110 H Lactic Acid Calcium Magnesium Iron TIBC Ferritin AST ALT Lactate Dehydrogenase Troponin T C-Reactive Protein Total Protein Albumin Cholesterol LDL Cholesterol Direct HDL Cholesterol Urine WBC (Auto) Vancomycin Trough Coronavirus (PCR) Crossmatch See Detail 07/12/19 07/13/19 07/13/19 23:16 05:26 06:50 WBC 23.9 H RBC 2.58 L Hgb 6.9 L Hct 21.5 L MCV 83 L MCH 27 L MCHC RDW 19.0 H Plt Count Lymph % (Auto) [place] % (Auto) Lymph # [place] # Baso # Seg Neutrophils % Seg Neuts % (Manual) 96.0 H Lymphocytes % (Manual) 3.0 L Monocytes % (Manual) Nucleated RBC % Seg Neutrophils # Seg Neutrophils # Man 22.9 H Lymphocytes # (Manual) 0.7 L Monocytes # (Manual) PT INR D-Dimer ABG pH ABG pO2 ABG HCO3 ABG O2 Saturation ABG Base Excess ABG Hemoglobin Oxyhemoglobin Sodium Potassium Chloride Carbon Dioxide BUN Creatinine Glucose POC Glucose 108 H 126 H Lactic Acid Calcium Magnesium Iron TIBC Ferritin AST ALT Lactate Dehydrogenase Troponin T C-Reactive Protein Total Protein Albumin Cholesterol LDL Cholesterol Direct HDL Cholesterol Urine WBC (Auto) Vancomycin Trough Coronavirus (PCR) Crossmatch 07/13/19 07/13/19 07/13/19 06:50 12:38 18:05 WBC RBC Hgb Hct MCV MCH MCHC RDW Plt Count Lymph % (Auto) [place] % (Auto) Lymph # [place] # Baso # Seg Neutrophils % Seg Neuts % (Manual) Lymphocytes % (Manual) Monocytes % (Manual) Nucleated RBC % Seg Neutrophils # Seg Neutrophils # Man Lymphocytes # (Manual) Monocytes # (Manual) PT INR D-Dimer ABG pH ABG pO2 ABG HCO3 ABG O2 Saturation ABG Base Excess ABG Hemoglobin Oxyhemoglobin Sodium Potassium Chloride Carbon Dioxide BUN 33 H Creatinine 0.5 L Glucose 136 H POC Glucose 164 H 145 H Lactic Acid Calcium Magnesium Iron TIBC Ferritin AST ALT Lactate Dehydrogenase Troponin T C-Reactive Protein Total Protein Albumin Cholesterol LDL Cholesterol Direct HDL Cholesterol Urine WBC (Auto) Vancomycin Trough Coronavirus (PCR) Crossmatch 07/13/19 07/14/19 07/14/19 18:30 00:21 04:40 WBC 22.9 H RBC 2.45 L Hgb 6.6 L Hct 21.1 L MCV MCH 27 L MCHC 31 L RDW 19.2 H Plt Count Lymph % (Auto) [place] % (Auto) Lymph # [place] # Baso # Seg Neutrophils % Seg Neuts % (Manual) 91.0 H Lymphocytes % (Manual) 7.0 L Monocytes % (Manual) Nucleated RBC % Seg Neutrophils # Seg Neutrophils # Man 20.8 H Lymphocytes # (Manual) Monocytes # (Manual) PT INR D-Dimer ABG pH ABG pO2 58.1 L ABG HCO3 ABG O2 Saturation 88.7 L ABG Base Excess ABG Hemoglobin 7.8 L Oxyhemoglobin 86.8 L Sodium Potassium Chloride Carbon Dioxide BUN Creatinine Glucose POC Glucose 118 H Lactic Acid Calcium Magnesium Iron TIBC Ferritin AST ALT Lactate Dehydrogenase Troponin T C-Reactive Protein Total Protein Albumin Cholesterol LDL Cholesterol Direct HDL Cholesterol Urine WBC (Auto) Vancomycin Trough Coronavirus (PCR) Crossmatch 07/14/19 07/14/19 07/14/19 04:40 05:38 05:45 WBC RBC Hgb Hct MCV MCH MCHC RDW Plt Count Lymph % (Auto) [place] % (Auto) Lymph # [place] # Baso # Seg Neutrophils % Seg Neuts % (Manual) Lymphocytes % (Manual) Monocytes % (Manual) Nucleated RBC % Seg Neutrophils # Seg Neutrophils # Man Lymphocytes # (Manual) Monocytes # (Manual) PT INR D-Dimer ABG pH 7.230 L ABG pO2 72.1 L ABG HCO3 ABG O2 Saturation 89.3 L ABG Base Excess -2.7 L ABG Hemoglobin 6.7 L Oxyhemoglobin 87.7 L Sodium Potassium Chloride 107.4 H Carbon Dioxide BUN 45 H Creatinine Glucose 101 H POC Glucose 154 H Lactic Acid Calcium Magnesium Iron TIBC Ferritin AST ALT Lactate Dehydrogenase Troponin T C-Reactive Protein Total Protein Albumin Cholesterol LDL Cholesterol Direct HDL Cholesterol Urine WBC (Auto) Vancomycin Trough Coronavirus (PCR) Crossmatch 07/14/19 07/14/19 07/14/19 12:25 18:20 19:01 WBC 22.4 H RBC 2.70 L Hgb 7.5 L Hct 23.3 L MCV MCH MCHC RDW 19.5 H Plt Count Lymph % (Auto) [place] % (Auto) Lymph # [place] # Baso # Seg Neutrophils % Seg Neuts % (Manual) Lymphocytes % (Manual) Monocytes % (Manual) Nucleated RBC % Seg Neutrophils # Seg Neutrophils # Man Lymphocytes # (Manual) Monocytes # (Manual) PT INR D-Dimer ABG pH ABG pO2 ABG HCO3 ABG O2 Saturation ABG Base Excess ABG Hemoglobin Oxyhemoglobin Sodium Potassium Chloride Carbon Dioxide BUN Creatinine Glucose POC Glucose 136 H 131 H Lactic Acid Calcium Magnesium Iron TIBC Ferritin AST ALT Lactate Dehydrogenase Troponin T C-Reactive Protein Total Protein Albumin Cholesterol LDL Cholesterol Direct HDL Cholesterol Urine WBC (Auto) Vancomycin Trough Coronavirus (PCR) Crossmatch 07/15/19 07/15/19 07/15/19 00:17 04:35 05:18 WBC 20.6 H RBC 2.41 L Hgb 6.8 L Hct 20.7 L MCV MCH MCHC RDW 20.2 H Plt Count Lymph % (Auto) [place] % (Auto) Lymph # [place] # Baso # Seg Neutrophils % Seg Neuts % (Manual) 92.0 H Lymphocytes % (Manual) 5.0 L Monocytes % (Manual) Nucleated RBC % Seg Neutrophils # Seg Neutrophils # Man 19.0 H Lymphocytes # (Manual) 1.0 L Monocytes # (Manual) PT INR D-Dimer ABG pH 7.342 L ABG pO2 ABG HCO3 ABG O2 Saturation ABG Base Excess -3.1 L ABG Hemoglobin 7.2 L Oxyhemoglobin 94.9 L Sodium Potassium Chloride Carbon Dioxide BUN Creatinine Glucose POC Glucose 116 H Lactic Acid Calcium Magnesium Iron TIBC Ferritin AST ALT Lactate Dehydrogenase Troponin T C-Reactive Protein Total Protein Albumin Cholesterol LDL Cholesterol Direct HDL Cholesterol Urine WBC (Auto) Vancomycin Trough Coronavirus (PCR) Crossmatch 07/15/19 07/15/19 07/15/19 05:18 05:57 11:28 WBC RBC Hgb Hct MCV MCH MCHC RDW Plt Count Lymph % (Auto) [place] % (Auto) Lymph # [place] # Baso # Seg Neutrophils % Seg Neuts % (Manual) Lymphocytes % (Manual) Monocytes % (Manual) Nucleated RBC % Seg Neutrophils # Seg Neutrophils # Man Lymphocytes # (Manual) Monocytes # (Manual) PT INR D-Dimer ABG pH ABG pO2 ABG HCO3 ABG O2 Saturation ABG Base Excess ABG Hemoglobin Oxyhemoglobin Sodium Potassium Chloride Carbon Dioxide 20 L BUN 59 H Creatinine Glucose 140 H POC Glucose 139 H 117 H Lactic Acid Calcium Magnesium Iron TIBC Ferritin AST ALT Lactate Dehydrogenase Troponin T C-Reactive Protein Total Protein Albumin Cholesterol LDL Cholesterol Direct HDL Cholesterol Urine WBC (Auto) Vancomycin Trough Coronavirus (PCR) Crossmatch 07/15/19 07/16/19 07/16/19 18:13 00:06 03:43 WBC RBC Hgb Hct MCV MCH MCHC RDW Plt Count Lymph % (Auto) [place] % (Auto) Lymph # [place] # Baso # Seg Neutrophils % Seg Neuts % (Manual) Lymphocytes % (Manual) Monocytes % (Manual) Nucleated RBC % Seg Neutrophils # Seg Neutrophils # Man Lymphocytes # (Manual) Monocytes # (Manual) PT INR D-Dimer ABG pH 7.344 L ABG pO2 68.6 L ABG HCO3 ABG O2 Saturation ABG Base Excess -3.5 L ABG Hemoglobin 6.1 L Oxyhemoglobin 93.3 L Sodium Potassium Chloride Carbon Dioxide BUN Creatinine Glucose POC Glucose 114 H 119 H Lactic Acid Calcium Magnesium Iron TIBC Ferritin AST ALT Lactate Dehydrogenase Troponin T C-Reactive Protein Total Protein Albumin Cholesterol LDL Cholesterol Direct HDL Cholesterol Urine WBC (Auto) Vancomycin Trough Coronavirus (PCR) Crossmatch 07/16/19 07/16/19 07/16/19 04:41 04:41 12:09 WBC 19.6 H RBC 2.81 L Hgb 7.7 L Hct 24.0 L MCV MCH 27 L MCHC RDW 19.4 H Plt Count 514 H Lymph % (Auto) 6.7 L [place] % (Auto) Lymph # [place] # 1.0 H Baso # Seg Neutrophils % 87.0 H Seg Neuts % (Manual) Lymphocytes % (Manual) Monocytes % (Manual) Nucleated RBC % Seg Neutrophils # 17.0 H Seg Neutrophils # Man Lymphocytes # (Manual) Monocytes # (Manual) PT INR D-Dimer ABG pH ABG pO2 ABG HCO3 ABG O2 Saturation ABG Base Excess ABG Hemoglobin Oxyhemoglobin Sodium Potassium 5.9 H Chloride Carbon Dioxide 21 L BUN 73 H Creatinine 2.0 H Glucose POC Glucose 141 H Lactic Acid Calcium Magnesium Iron TIBC Ferritin AST ALT Lactate Dehydrogenase Troponin T C-Reactive Protein Total Protein Albumin Cholesterol LDL Cholesterol Direct HDL Cholesterol Urine WBC (Auto) Vancomycin Trough Coronavirus (PCR) Crossmatch 07/16/19 07/16/19 07/17/19 16:19 17:45 00:16 WBC RBC Hgb Hct MCV MCH MCHC RDW Plt Count Lymph % (Auto) [place] % (Auto) Lymph # [place] # Baso # Seg Neutrophils % Seg Neuts % (Manual) Lymphocytes % (Manual) Monocytes % (Manual) Nucleated RBC % Seg Neutrophils # Seg Neutrophils # Man Lymphocytes # (Manual) Monocytes # (Manual) PT INR D-Dimer ABG pH ABG pO2 ABG HCO3 ABG O2 Saturation ABG Base Excess ABG Hemoglobin Oxyhemoglobin Sodium Potassium 5.1 H Chloride Carbon Dioxide 20 L BUN 72 H Creatinine 1.7 H Glucose 128 H POC Glucose 181 H 164 H Lactic Acid Calcium Magnesium Iron TIBC Ferritin AST ALT Lactate Dehydrogenase Troponin T C-Reactive Protein Total Protein Albumin Cholesterol LDL Cholesterol Direct HDL Cholesterol Urine WBC (Auto) Vancomycin Trough Coronavirus (PCR) Crossmatch 07/17/19 07/17/19 07/17/19 04:20 04:39 04:39 WBC 16.1 H RBC 2.92 L Hgb 8.0 L Hct 25.5 L MCV MCH MCHC 31 L RDW 19.7 H Plt Count 564 H Lymph % (Auto) 3.6 L [place] % (Auto) 7.4 H Lymph # 0.6 L [place] # 1.2 H Baso # Seg Neutrophils % 87.5 H Seg Neuts % (Manual) Lymphocytes % (Manual) Monocytes % (Manual) Nucleated RBC % Seg Neutrophils # 14.1 H Seg Neutrophils # Man Lymphocytes # (Manual) Monocytes # (Manual) PT INR D-Dimer ABG pH 7.231 L ABG pO2 95.3 H ABG HCO3 ABG O2 Saturation ABG Base Excess -5.0 L ABG Hemoglobin 7.9 L Oxyhemoglobin 94.8 L Sodium Potassium Chloride 107.8 H Carbon Dioxide 21 L BUN 68 H Creatinine Glucose POC Glucose Lactic Acid Calcium Magnesium Iron TIBC Ferritin AST ALT Lactate Dehydrogenase Troponin T C-Reactive Protein Total Protein Albumin Cholesterol LDL Cholesterol Direct HDL Cholesterol Urine WBC (Auto) Vancomycin Trough Coronavirus (PCR) Crossmatch 07/17/19 07/17/19 07/17/19 05:28 12:11 18:48 WBC RBC Hgb Hct MCV MCH MCHC RDW Plt Count Lymph % (Auto) [place] % (Auto) Lymph # [place] # Baso # Seg Neutrophils % Seg Neuts % (Manual) Lymphocytes % (Manual) Monocytes % (Manual) Nucleated RBC % Seg Neutrophils # Seg Neutrophils # Man Lymphocytes # (Manual) Monocytes # (Manual) PT INR D-Dimer ABG pH ABG pO2 ABG HCO3 ABG O2 Saturation ABG Base Excess ABG Hemoglobin Oxyhemoglobin Sodium Potassium Chloride Carbon Dioxide BUN Creatinine Glucose POC Glucose 121 H 125 H 174 H Lactic Acid Calcium Magnesium Iron TIBC Ferritin AST ALT Lactate Dehydrogenase Troponin T C-Reactive Protein Total Protein Albumin Cholesterol LDL Cholesterol Direct HDL Cholesterol Urine WBC (Auto) Vancomycin Trough Coronavirus (PCR) Crossmatch 07/17/19 07/17/19 07/18/19 19:55 23:57 02:30 WBC RBC Hgb Hct MCV MCH MCHC RDW Plt Count Lymph % (Auto) [place] % (Auto) Lymph # [place] # Baso # Seg Neutrophils % Seg Neuts % (Manual) Lymphocytes % (Manual) Monocytes % (Manual) Nucleated RBC % Seg Neutrophils # Seg Neutrophils # Man Lymphocytes # (Manual) Monocytes # (Manual) PT INR D-Dimer ABG pH 7.344 L 7.294 L ABG pO2 78.5 L 119.2 H ABG HCO3 ABG O2 Saturation ABG Base Excess -3.3 L -2.6 L ABG Hemoglobin 8.6 L 8.1 L Oxyhemoglobin 94.8 L Sodium Potassium Chloride Carbon Dioxide BUN Creatinine Glucose POC Glucose 148 H Lactic Acid Calcium Magnesium Iron TIBC Ferritin AST ALT Lactate Dehydrogenase Troponin T C-Reactive Protein Total Protein Albumin Cholesterol LDL Cholesterol Direct HDL Cholesterol Urine WBC (Auto) Vancomycin Trough Coronavirus (PCR) Crossmatch 07/18/19 07/18/19 07/18/19 04:49 05:22 05:22 WBC 15.9 H RBC 3.00 L Hgb 8.1 L Hct 26.0 L MCV MCH 27 L MCHC 31 L RDW 19.4 H Plt Count 733 H Lymph % (Auto) 6.3 L [place] % (Auto) 7.4 H Lymph # 1.0 L [place] # 1.2 H Baso # 0.2 H Seg Neutrophils % 83.8 H Seg Neuts % (Manual) Lymphocytes % (Manual) Monocytes % (Manual) Nucleated RBC % Seg Neutrophils # 13.3 H Seg Neutrophils # Man Lymphocytes # (Manual) Monocytes # (Manual) PT INR D-Dimer ABG pH ABG pO2 ABG HCO3 ABG O2 Saturation ABG Base Excess ABG Hemoglobin Oxyhemoglobin Sodium Potassium Chloride 110.6 H Carbon Dioxide BUN 61 H Creatinine Glucose 109 H POC Glucose 116 H Lactic Acid Calcium Magnesium Iron TIBC Ferritin AST ALT Lactate Dehydrogenase Troponin T C-Reactive Protein Total Protein Albumin Cholesterol LDL Cholesterol Direct HDL Cholesterol Urine WBC (Auto) Vancomycin Trough Coronavirus (PCR) Crossmatch 07/18/19 07/18/19 07/18/19 12:23 18:06 22:20 WBC RBC Hgb Hct MCV MCH MCHC RDW Plt Count Lymph % (Auto) [place] % (Auto) Lymph # [place] # Baso # Seg Neutrophils % Seg Neuts % (Manual) Lymphocytes % (Manual) Monocytes % (Manual) Nucleated RBC % Seg Neutrophils # Seg Neutrophils # Man Lymphocytes # (Manual) Monocytes # (Manual) PT INR D-Dimer ABG pH 7.338 L ABG pO2 135.1 H ABG HCO3 ABG O2 Saturation ABG Base Excess ABG Hemoglobin 9.2 L Oxyhemoglobin Sodium Potassium Chloride Carbon Dioxide BUN Creatinine Glucose POC Glucose 114 H 113 H Lactic Acid Calcium Magnesium Iron TIBC Ferritin AST ALT Lactate Dehydrogenase Troponin T C-Reactive Protein Total Protein Albumin Cholesterol LDL Cholesterol Direct HDL Cholesterol Urine WBC (Auto) Vancomycin Trough Coronavirus (PCR) Crossmatch 07/18/19 07/19/19 07/19/19 23:33 03:45 05:18 WBC RBC Hgb Hct MCV MCH MCHC RDW Plt Count Lymph % (Auto) [place] % (Auto) Lymph # [place] # Baso # Seg Neutrophils % Seg Neuts % (Manual) Lymphocytes % (Manual) Monocytes % (Manual) Nucleated RBC % Seg Neutrophils # Seg Neutrophils # Man Lymphocytes # (Manual) Monocytes # (Manual) PT INR D-Dimer ABG pH 7.342 L ABG pO2 95.0 H ABG HCO3 ABG O2 Saturation ABG Base Excess ABG Hemoglobin 8.5 L Oxyhemoglobin Sodium Potassium Chloride Carbon Dioxide BUN Creatinine Glucose POC Glucose 125 H 111 H Lactic Acid Calcium Magnesium Iron TIBC Ferritin AST ALT Lactate Dehydrogenase Troponin T C-Reactive Protein Total Protein Albumin Cholesterol LDL Cholesterol Direct HDL Cholesterol Urine WBC (Auto) Vancomycin Trough Coronavirus (PCR) Crossmatch 07/19/19 07/19/19 07/19/19 08:45 08:45 11:47 WBC 15.9 H RBC 3.31 L Hgb 9.1 L Hct 28.4 L MCV MCH 27 L MCHC RDW 19.1 H Plt Count 858 H Lymph % (Auto) 4.9 L [place] % (Auto) 8.1 H Lymph # 0.8 L [place] # 1.3 H Baso # Seg Neutrophils % 85.5 H Seg Neuts % (Manual) Lymphocytes % (Manual) Monocytes % (Manual) Nucleated RBC % Seg Neutrophils # 13.6 H Seg Neutrophils # Man Lymphocytes # (Manual) Monocytes # (Manual) PT INR D-Dimer ABG pH ABG pO2 ABG HCO3 ABG O2 Saturation ABG Base Excess ABG Hemoglobin Oxyhemoglobin Sodium Potassium Chloride 111.6 H Carbon Dioxide BUN 50 H Creatinine 0.7 L Glucose 118 H POC Glucose 114 H Lactic Acid Calcium Magnesium Iron TIBC Ferritin AST ALT Lactate Dehydrogenase Troponin T C-Reactive Protein Total Protein Albumin Cholesterol LDL Cholesterol Direct HDL Cholesterol Urine WBC (Auto) Vancomycin Trough Coronavirus (PCR) Crossmatch 07/19/19 07/19/19 07/20/19 18:25 23:44 04:39 WBC RBC Hgb Hct MCV MCH MCHC RDW Plt Count Lymph % (Auto) [place] % (Auto) Lymph # [place] # Baso # Seg Neutrophils % Seg Neuts % (Manual) Lymphocytes % (Manual) Monocytes % (Manual) Nucleated RBC % Seg Neutrophils # Seg Neutrophils # Man Lymphocytes # (Manual) Monocytes # (Manual) PT INR D-Dimer ABG pH ABG pO2 ABG HCO3 ABG O2 Saturation ABG Base Excess ABG Hemoglobin Oxyhemoglobin Sodium Potassium Chloride 110.3 H Carbon Dioxide BUN 44 H Creatinine 0.6 L Glucose 120 H POC Glucose 115 H 117 H Lactic Acid Calcium Magnesium Iron TIBC Ferritin AST ALT Lactate Dehydrogenase Troponin T C-Reactive Protein Total Protein Albumin Cholesterol LDL Cholesterol Direct HDL Cholesterol Urine WBC (Auto) Vancomycin Trough Coronavirus (PCR) Crossmatch 07/20/19 07/21/19 07/21/19 05:30 11:59 17:40 WBC RBC Hgb Hct MCV MCH MCHC RDW Plt Count Lymph % (Auto) [place] % (Auto) Lymph # [place] # Baso # Seg Neutrophils % Seg Neuts % (Manual) Lymphocytes % (Manual) Monocytes % (Manual) Nucleated RBC % Seg Neutrophils # Seg Neutrophils # Man Lymphocytes # (Manual) Monocytes # (Manual) PT INR D-Dimer ABG pH ABG pO2 ABG HCO3 ABG O2 Saturation ABG Base Excess ABG Hemoglobin Oxyhemoglobin Sodium Potassium Chloride Carbon Dioxide BUN Creatinine Glucose POC Glucose 131 H 122 H 125 H Lactic Acid Calcium Magnesium Iron TIBC Ferritin AST ALT Lactate Dehydrogenase Troponin T C-Reactive Protein Total Protein Albumin Cholesterol LDL Cholesterol Direct HDL Cholesterol Urine WBC (Auto) Vancomycin Trough Coronavirus (PCR) Crossmatch 07/22/19 07/22/19 07/22/19 05:38 05:38 12:29 WBC 12.6 H RBC 3.19 L Hgb 8.9 L Hct 27.5 L MCV MCH MCHC RDW 18.9 H Plt Count 1101 H* Lymph % (Auto) [place] % (Auto) 12.2 H Lymph # [place] # 1.5 H Baso # Seg Neutrophils % 72.8 H Seg Neuts % (Manual) 76.0 H Lymphocytes % (Manual) 7.0 L Monocytes % (Manual) 14.0 H Nucleated RBC % 1.0 H Seg Neutrophils # 9.2 H Seg Neutrophils # Man 9.6 H Lymphocytes # (Manual) 0.9 L Monocytes # (Manual) 1.8 H PT INR D-Dimer ABG pH ABG pO2 ABG HCO3 ABG O2 Saturation ABG Base Excess ABG Hemoglobin Oxyhemoglobin Sodium Potassium 3.4 L Chloride Carbon Dioxide BUN 29 H Creatinine 0.5 L Glucose POC Glucose 116 H Lactic Acid Calcium Magnesium Iron TIBC Ferritin AST ALT Lactate Dehydrogenase Troponin T C-Reactive Protein Total Protein Albumin Cholesterol LDL Cholesterol Direct HDL Cholesterol Urine WBC (Auto) Vancomycin Trough Coronavirus (PCR) Crossmatch 0507/[id number] 07/23/19 18:20 23:51 04:52 WBC RBC Hgb Hct MCV MCH MCHC RDW Plt Count Lymph % (Auto) [place] % (Auto) Lymph # [place] # Baso # Seg Neutrophils % Seg Neuts % (Manual) Lymphocytes % (Manual) Monocytes % (Manual) Nucleated RBC % Seg Neutrophils # Seg Neutrophils # Man Lymphocytes # (Manual) Monocytes # (Manual) PT INR D-Dimer ABG pH ABG pO2 ABG HCO3 ABG O2 Saturation ABG Base Excess ABG Hemoglobin Oxyhemoglobin Sodium Potassium Chloride Carbon Dioxide BUN 24 H Creatinine 0.4 L Glucose POC Glucose 107 H 110 H Lactic Acid Calcium Magnesium Iron TIBC Ferritin AST ALT Lactate Dehydrogenase Troponin T C-Reactive Protein Total Protein Albumin Cholesterol LDL Cholesterol Direct HDL Cholesterol Urine WBC (Auto) Vancomycin Trough Coronavirus (PCR) Crossmatch 07/23/19 06:00 WBC RBC Hgb Hct MCV MCH MCHC RDW Plt Count Lymph % (Auto) [place] % (Auto) Lymph # [place] # Baso # Seg Neutrophils % Seg Neuts % (Manual) Lymphocytes % (Manual) Monocytes % (Manual) Nucleated RBC % Seg Neutrophils # Seg Neutrophils # Man Lymphocytes # (Manual) Monocytes # (Manual) PT INR D-Dimer ABG pH ABG pO2 ABG HCO3 27.0 H ABG O2 Saturation ABG Base Excess ABG Hemoglobin 9.4 L Oxyhemoglobin 94.0 L Sodium Potassium Chloride Carbon Dioxide BUN Creatinine Glucose POC Glucose Lactic Acid Calcium Magnesium Iron TIBC Ferritin AST ALT Lactate Dehydrogenase Troponin T C-Reactive Protein Total Protein Albumin Cholesterol LDL Cholesterol Direct HDL Cholesterol Urine WBC (Auto) Vancomycin Trough Coronavirus (PCR) Crossmatch Allied health notes reviewed: nursing
--- NOTE | 2019-07-23 10:38 | Progress Note ---
Assessment and Plan Assessment and plan: --COVid positive pneumonia with severe sepsis Received Plaquenil and cefepime, monitor off antibiotics ID following --Septic shock: On Levophed Persistent hypotension, titrate to systolic blood pressure more than 100 -- Acute respiratory Failure with Hypoxia Due to bilateral PNA with COVID 19 infection. On ventilatory support, unable to wean Pulmonary critical following --COPD with exacerbation Likely due to COVID-19 pneumonia Continue scheduled nebs --Anemia, Microcytic persistent s/p total 3 unit of PRBC, today Hb today 9.1 --Pressure Ulcers: POA buttocks, right lateral foot area wound and supportive care --Hyponatremia, resolved --DM type 2: Accu-Chek SCC tube feeding, insulin as needed --h/o HTN Essential, now hypotensive On Levophed --Seizure D/o/CVA/immobility/BIpolar D/o/SCZ Seizure precautions, antiepileptic medications --Severe PCM, TF supportive care, dietary following patient is DNR- Called and verified information Very poor prognosis, Recommend hospice 07/04: COVID +ve, start on plaquinil, called no answer 07/05: transfuse one unit PRBC, Hb dropped to ~6, called and updated 07/06; H&H stable, serum chemistry improved. On mechanical ventilation with high inflammatory markers. Continue Plaquenil and empiric antibiotics. ID following, prognosis remains guarded and extremely poor. 07/07: On mechanical ventilation with high inflammatory markers. Continue Plaquenil and empiric antibiotics. ID following, prognosis remains guarded and extremely poor. 07/08: Called today and verified the CODE STATUS. Patient remains DNR. He is still intubated, with poor prognosis. Continue to follow inflammatory markers. 07/09 wean off from vent as tolerated, completed empiric antibiotic and Plaquenil 07/10 wean off from vent as tolerated. poor prognosis 07/11 hb 6.7 today, transfuse one PRBC. wean off from vent as tolerated. poor prognosis 07/12 remains critically on vent. Hb 6.9 07/13 Hb dropped to 6.6, transfuse 1 unit of PRBC, remains on vent critically ill Hypotensive, fluid bolus, if no improvement start Levophed 07/14; remains anemic with hemoglobin of 6.8, received total 3 units of PRBC Additional 1 unit of PRBC today, stool for occult blood to rule out GI causes Started back on Levophed due to hypotension 07/15; patient remains critically ill, hypotensive on Levophed 07/16: Today remains intubated on vent, persistent hypotension on Levophed 07/17; clinically no change, pressor dependent[on Levophed] DNR status 07/18: Patient remains hypotensive requiring Levophed, intubated on vent Unable to wean, critically ill. DNR 07/20/2019 Patient remains hypotensive requiring Levophed, intubated on vent. Patient currently with AC mode ventilation, rate 20, tidal volume 500, FiO2 40% and PEEP 6. Patient is a poor prognosis and apparently was on hospice recently. 07/21/2019. Patient with PEG tube that was clogged yesterday. surgery evaluated the patient and noted Very long PEG tubing with thick material inside. The ent celsa tube was stripped and a large amount of formed tube feed was expressed. The tube was then flushed with sprite and flushed easily. Tube clamped. Patient currently with AC mode ventilation, rate 20, tidal volume 500, FiO2 40% and PEEP 6. Patient is a poor prognosis and apparently was on hospice recently. 07/22/2019. Patient currently with AC mode ventilation, rate 20, tidal volume 500, FiO2 30% and PEEP 6. Patient on sedation with fentanyl drip. Continue Levophed to maintain MAP greater than 65. Patient is a poor prognosis and apparently was on hospice recently. 07/23/2019. Patient currently with AC mode ventilation, rate 20, tidal volume 500, FiO2 30% and PEEP 6. Patient on sedation with fentanyl drip. Continue Levophed to maintain MAP greater than 65. Patient is a poor prognosis and apparently was on hospice recently. The high probability of a clinically significant, sudden or life threatening det erioration of the [respiratory, CVS, MUSIC LEADER] system(s) required my full and direct attention, intervention and personal management. The aggregate critical care time was [32] minutes. This time is in addition to time spent performing reported procedures but includes the following: [x] Data Review and interpretation [x] Patient assessment and monitoring of vital signs [x] Documentation [x] Medication orders and management History Interval history: 69-year-old male patient with PMH of CVA with RHP, HTN, DM2, SCZ, Dementia, Alcohol use D/o, Seizure D/O, presents to the emergency department via EMS from home with progressive SOB and impending espiratory failure with an unresponsive . PT was intubated was admitted through emergency room to ICU treated for sepsis, b/l PNA, acute respiratory failure received antibiotics. Patient was tested positive for COVID19. Evaluated by ID , received antibiotics Plaquenil, and inflammatory markers were checked and followed. Patient was hypotensive requiring Levophed, continues to be hypotensive currently on Levophed, unable to wean remains intubated on ventilatory support, critically ill, DNR status h owever family wants full treatment. Hospitalist Physical - Constitutional Vitals: Temp Pulse Resp BP Pulse Ox 98.7 F 112 H 18 120/61 100 07/23/19 04:00 07/23/19 08:00 07/23/19 06:30 07/23/19 08:00 07/23/19 08:00 General appearance: Present: no acute distress, well-nourished, other (Orally intubated on vent) - EENT Eyes: Present: PERRL, EOM intact ENT: hearing intact, clear oral mucosa, dentition normal - Neck Neck: Present: supple, normal ROM - Respiratory Respiratory effort: normal Respiratory: bilateral: CTA - Cardiovascular Rhythm: regular Heart Sounds: Present: S1 & S2. Absent: gallop, rub - Extremities Extremities: no ischemia, No edema, Full ROM - Abdominal General gastrointestinal: soft, non-tender, non-distended, normal bowel sounds - Integumentary Integumentary: Present: clear, warm, dry - Neurologic Neurologic: CNII-XII intact, moves all extremities Results - Labs CBC & Chem 7: 07/22/19 05:38 07/23/19 04:52 Labs: Laboratory Last Values WBC 12.6 K/mm3 (4.5-11.0) H 07/22/19 05:38 RBC 3.19 M/mm3 (3.65-5.03) L 07/22/19 05:38 Hgb 8.9 gm/dl (11.8-15.2) L 07/22/19 05:38 Hct 27.5 % (35.5-45.6) L 07/22/19 05:38 MCV 86 fl (84-94) 07/22/19 05:38 MCH 28 pg (28-32) 07/22/19 05:38 MCHC 32 % (32-34) 07/22/19 05:38 RDW 18.9 % (13.2-15.2) H 07/22/19 05:38 Plt Count 1101 K/mm3 (140-440) H* 07/22/19 05:38 Lymph % (Auto) 4.9 % (13.4-35.0) L 07/19/19 08:45 [place] % (Auto) 12.2 % (0.0-7.3) H 07/22/19 05:38 Eos % (Auto) 1.0 % (0.0-4.3) 07/19/19 08:45 Baso % (Auto) 0.5 % (0.0-1.8) 07/19/19 08:45 Lymph # 0.8 K/mm3 (1.2-5.4) L 07/19/19 08:45 [place] # 1.5 K/mm3 (0.0-0.8) H 07/22/19 05:38 Eos # 0.2 K/mm3 (0.0-0.4) 07/19/19 08:45 Baso # 0.1 K/mm3 (0.0-0.1) 07/19/19 08:45 Add Manual Diff Complete 07/22/19 05:38 Total Counted 100 07/22/19 05:38 Seg Neutrophils % 72.8 % (40.0-70.0) H 07/22/19 05:38 Seg Neuts % (Manual) 76.0 % (40.0-70.0) H 07/22/19 05:38 Band Neutrophils % 1.0 % 07/22/19 05:38 Lymphocytes % (Manual) 7.0 % (13.4-35.0) L 07/22/19 05:38 Reactive Lymphs % (Man) 0 % 07/22/19 05:38 Monocytes % (Manual) 14.0 % (0.0-7.3) H 07/22/19 05:38 Eosinophils % (Manual) 2.0 % (0.0-4.3) 07/22/19 05:38 Basophils % (Manual) 0 % (0.0-1.8) 07/22/19 05:38 Metamyelocytes % 0 % 07/22/19 05:38 Myelocytes % 0 % 07/22/19 05:38 Promyelocytes % 0 % 07/22/19 05:38 Blast Cells % 0 % 07/22/19 05:38 Nucleated RBC % 1.0 % (0.0-0.9) H 07/22/19 05:38 Seg Neutrophils # 9.2 K/mm3 (1.8-7.7) H 07/22/19 05:38 Seg Neutrophils # Man 9.6 K/mm3 (1.8-7.7) H 07/22/19 05:38 Band Neutrophils # 0.1 K/mm3 07/22/19 05:38 Lymphocytes # (Manual) 0.9 K/mm3 (1.2-5.4) L 07/22/19 05:38 Abs React Lymphs (Man) 0.0 K/mm3 07/22/19 05:38 Monocytes # (Manual) 1.8 K/mm3 (0.0-0.8) H 07/22/19 05:38 Eosinophils # (Manual) 0.3 K/mm3 (0.0-0.4) 07/22/19 05:38 Basophils # (Manual) 0.0 K/mm3 (0.0-0.1) 07/22/19 05:38 Metamyelocytes # 0.0 K/mm3 07/22/19 05:38 Myelocytes # 0.0 K/mm3 07/22/19 05:38 Promyelocytes # 0.0 K/mm3 07/22/19 05:38 Blast Cells # 0.0 K/mm3 07/22/19 05:38 WBC Morphology Not Reportable 07/22/19 05:38 Hypersegmented Neuts Not Reportable 07/22/19 05:38 Hyposegmented Neuts Not Reportable 07/22/19 05:38 Hypogranular Neuts Not Reportable 07/22/19 05:38 Smudge Cells Not Reportable 07/22/19 05:38 Toxic Granulation Not Reportable 07/22/19 05:38 Toxic Vacuolation Not Reportable 07/22/19 05:38 Dohle Bodies Not Reportable 07/22/19 05:38 Pelger-Huet Anomaly Not Reportable 07/22/19 05:38 Mendy Rods Not Reportable 07/22/19 05:38 Platelet Estimate Consistent w auto 07/22/19 05:38 Clumped Platelets Not Reportable 07/22/19 05:38 Plt Clumps, EDTA Not Reportable 07/22/19 05:38 Large Platelets Not Reportable 07/22/19 05:38 Giant Platelets Not Reportable 07/22/19 05:38 Platelet Satelliting Not Reportable 07/22/19 05:38 Plt Morphology Comment Not Reportable 07/22/19 05:38 RBC Morphology Not Reportable 07/22/19 05:38 Dimorphic RBCs Not Reportable 07/22/19 05:38 Polychromasia Not Reportable 07/22/19 05:38 Hypochromasia Not Reportable 07/22/19 05:38 Poikilocytosis Not Reportable 07/22/19 05:38 Anisocytosis 1+ 07/22/19 05:38 Microcytosis Not Reportable 07/22/19 05:38 Macrocytosis Not Reportable 07/22/19 05:38 Spherocytes Not Reportable 07/22/19 05:38 Pappenheimer Bodies Not Reportable 07/22/19 05:38 Sickle Cells Not Reportable 07/22/19 05:38 Target Cells Not Reportable 07/22/19 05:38 Tear Drop Cells Not Reportable 07/22/19 05:38 Ovalocytes Not Reportable 07/22/19 05:38 Helmet Cells Not Reportable 07/22/19 05:38 [place] Bodies Not Reportable 07/22/19 05:38 [place] Rings Not Reportable 07/22/19 05:38 [place] Cells Not Reportable 07/22/19 05:38 Bite Cells Not Reportable 07/22/19 05:38 Crenated Cell Not Reportable 07/22/19 05:38 Elliptocytes Not Reportable 07/22/19 05:38 Acanthocytes (Spur) Not Reportable 07/22/19 05:38 Rouleaux Not Reportable 07/22/19 05:38 Hemoglobin C Crystals Not Reportable 07/22/19 05:38 Schistocytes Not Reportable 07/22/19 05:38 Malaria parasites Not Reportable 07/22/19 05:38 Jeevan Bodies Not Reportable 07/22/19 05:38 Hem Pathologist Commnt No 07/22/19 05:38 PT 16.0 Sec. (12.2-14.9) H 07/03/19 22:20 INR 1.26 (0.87-1.13) H 07/03/19 22:20 D-Dimer 1142.18 ng/mlDDU (0-234) H 07/08/19 00:45 ABG pH 7.359 pH Units (7.350-7.450) 07/23/19 06:00 ABG pCO2 48.9 mm Hg 07/23/19 06:00 ABG pO2 80.4 mm Hg (80.0-90.0) 07/23/19 06:00 ABG HCO3 27.0 mmol/L (20.0-26.0) H 07/23/19 06:00 ABG O2 Saturation 95.9 % (95.0-99.0) 07/23/19 06:00 ABG O2 Content 12.5 (0.0-44) 07/23/19 06:00 ABG Base Excess 1.1 mmol/L (-2.0-3.0) 07/23/19 06:00 ABG Hemoglobin 9.4 gm/dl (14.0-18.0) L 07/23/19 06:00 ABG Carboxyhemoglobin 1.5 % (0.0-5.0) 07/23/19 06:00 ABG Methemoglobin 0.5 % (0.0-1.5) 07/23/19 06:00 Oxyhemoglobin 94.0 % (95.0-99.0) L 07/23/19 06:00 FiO2 30 % 07/23/19 06:00 Sodium 140 mmol/L (137-145) 07/23/19 04:52 Potassium 3.6 mmol/L (3.6-5.0) 07/23/19 04:52 Chloride 105.9 mmol/L (98-107) 07/23/19 04:52 Carbon Dioxide 26 mmol/L (22-30) 07/23/19 04:52 Anion Gap 12 mmol/L 07/23/19 04:52 BUN 24 mg/dL (9-20) H 07/23/19 04:52 Creatinine 0.4 mg/dL (0.8-1.5) L 07/23/19 04:52 Estimated GFR > 60 ml/min 07/23/19 04:52 BUN/Creatinine Ratio 60 % 07/23/19 04:52 Glucose 90 mg/dL (75-100) 07/23/19 04:52 POC Glucose 96 (70-105) 07/23/19 04:59 Osmolality 268 Mosm/kg 07/05/19 04:00 Lactic Acid 3.30 mmol/L (0.7-2.0) H* 07/04/19 07:05 Uric Acid 7.2 mg/dL (3.5-7.6) 07/05/19 04:00 Calcium 9.3 mg/dL (8.4-10.2) 07/23/19 04:52 Phosphorus 3.60 mg/dL (2.5-4.5) 07/05/19 04:00 Magnesium 1.80 mg/dL (1.7-2.3) 07/11/19 05:14 Iron 9 ug/dL (49-181) L 07/04/19 07:05 TIBC 97 mcg/dL (250-450) L 07/04/19 07:05 Ferritin 839.0 ng/mL (13.0-400.0) H 07/08/19 00:45 Total Bilirubin 0.20 mg/dL (0.1-1.2) 07/04/19 07:05 AST 73 units/L (5-40) H 07/04/19 07:05 ALT 91 units/L (7-56) H 07/04/19 07:05 Alkaline Phosphatase 114 units/L (35-129) 07/04/19 07:05 Ammonia 35.0 umol/L (25-60) 07/03/19 23:58 Lactate Dehydrogenase 277 units/L (91-180) H 07/10/19 04:00 Troponin T 0.013 ng/mL (0.00-0.029) 07/04/19 07:05 C-Reactive Protein 15.10 mg/dL (0.00-1.30) H 07/10/19 04:00 Total Protein 5.5 g/dL (6.3-8.2) L 07/04/19 07:05 Albumin 2.0 g/dL (3.9-5) L 07/04/19 07:05 Albumin/Globulin Ratio 0.6 % 07/04/19 07:05 Triglycerides 33 mg/dL (2-149) 07/03/19 19:57 Cholesterol 47 mg/dL (50-199) L 07/03/19 19:57 LDL Cholesterol Direct 25 mg/dL (50-130) L 07/03/19 19:57 HDL Cholesterol 20 mg/dL (40-59) L 07/03/19 19:57 Cholesterol/HDL Ratio 2.35 % 07/03/19 19:57 Procalcitonin 1.25 ng/mL (<0.15) 07/10/19 04:00 TSH 2.170 mlU/mL (0.270-4.200) 07/03/19 22:20 Total Cortisol 28.0 mcg/dL () 07/05/19 10:11 Urine Color [place]aima (Yellow) 07/03/19 21:13 Urine Turbidity Cloudy (Clear) 07/03/19 21:13 Urine pH 5.0 (5.0-7.0) 07/03/19 21:13 Ur Specific [place] 1.016 (1.003-1.030) 07/03/19 21:13 Urine Protein 30 mg/dl mg/dL (Negative) 07/03/19 21:13 Urine Glucose (UA) Neg mg/dL (Negative) 07/03/19 21:13 Urine Ketones Neg mg/dL (Negative) 07/03/19 21:13 Urine Blood Neg (Negative) 07/03/19 21:13 Urine Nitrite Neg (Negative) 07/03/19 21:13 Urine Bilirubin Neg (Negative) 07/03/19 21:13 Urine Urobilinogen 2.0 mg/dL (<2.0) 07/03/19 21:13 Ur Leukocyte Esterase Neg (Negative) 07/03/19 21:13 Urine WBC (Auto) 12.0 /HPF (0.0-6.0) H 07/03/19 21:13 Urine RBC (Auto) 6.0 /HPF (0.0-6.0) 07/03/19 21:13 U Epithel Cells (Auto) 1.0 /HPF (0-13.0) 07/03/19 21:13 Urine Bacteria (Auto) 1+ /HPF (Negative) 07/03/19 21:13 Urine WBC Clumps Few /HPF 07/03/19 21:13 Urine Mucus Few /HPF 07/03/19 21:13 Urine Osmolality 293 Mosm/kg 07/05/19 08:15 Vancomycin Trough 23.2 ug/mL (5.0-20.0) H 07/05/19 17:54 Urine Opiates Screen Presumptive negative 07/03/19 21:13 Urine Methadone Screen Presumptive negative 07/03/19 21:13 Ur Barbiturates Screen Presumptive negative 07/03/19 21:13 Ur Phencyclidine Scrn Presumptive negative 07/03/19 21:13 Ur Amphetamines Screen Presumptive negative 07/03/19 21:13 U Benzodiazepines Scrn Presumptive negative 07/03/19 21:13 Urine Cocaine Screen Presumptive negative 07/03/19 21:13 U Marijuana (THC) Screen Presumptive negative 07/03/19 21:13 Drugs of Abuse Note Disclamer 07/03/19 21:13 Plasma/Serum Alcohol < 0.01 % (0-0.07) 07/03/19 23:58 Coronavirus (PCR) Positive (Negative) A 07/04/19 10:09 Blood Type B POSITIVE 07/12/19 08:49 Antibody Screen Negative 07/12/19 08:49 Crossmatch See Detail 07/12/19 08:49 Wright/IV: Voiding Method Indwelling Catheter IV Catheter Type [Left Upper Mid-line arm] IV Catheter Type [Right INT / Saline Lock Forearm] IV Catheter Type [Right Hand] INT / Saline Lock IV Catheter Type [Right CVL Femoral] IV Catheter Type [Left INT / Saline Lock External Jugular] Active Medications - Current Medications Current Medications: Generic Name Dose Route Start Last Admin Trade Name Freq PRN Reason Stop Dose Admin Acetaminophen 650 mg 07/04/19 04:24 Tylenol OH Q6H PRN Pain MILD(1-3)/Fever >100.5/MURO Acetaminophen 650 mg 07/10/19 04:00 07/15/19 20:35 Tylenol PO 650 mg Q6HR PRN Administration Pain, Mild (1-3) FEVER Lipase/Protease/Amylase 1 each 07/04/19 10:04 07/20/19 06:15 Pancrewhitley [place] 10,500 Unit FEEDTUBE 1 each PRN PRN Administration For Clogged Feeding Tube Aspirin 81 mg 07/05/19 10:00 07/22/19 09:19 Baby Aspirin PO 81 mg QDAY TAMMIE Administration Dextrose 50 ml 04/15/20 06:54 D50w (25gm) Syringe IV Q30MIN PRN Hypoglycemia Protocol Docusate Sodium 100 mg 07/10/19 10:00 07/22/19 21:07 Colace PO 100 mg BID TAMMIE Administration Famotidine 20 mg 07/17/19 10:00 07/22/19 21:07 Pepcid PO 20 mg BID TAMMIE Administration Fentanyl 50 mcg 07/21/19 15:18 Sublimaze IV Q10MIN PRN ANALGESIA Folic Acid 1 mg 07/05/19 10:00 07/22/19 09:19 Folvite PO 1 mg QDAY TAMMIE Administration Hydrophilic Ointment 1 applic 07/03/19 19:56 07/05/19 17:42 Vaseline Lip Therapy TP 1 applic Q2HR PRN Administration Dry Lips Norepinephrine 4 mg in 250 mls @ 7.5 mls/hr 07/03/19 23:00 07/20/19 01:00 Levophed Drip 4 Mg/Ns 250 Ml IV Infused TITR TAMMIE Titration Protocol 2 MCG/MIN Fentanyl Citrate 2,000 mcg in 100 mls @ 4.75 mls/hr 07/21/19 16:00 07/23/19 05:22 Fentanyl Drip Premix IV 3 mcg/kg/hr TITR TAMMIE 14.25 mls/hr Administration Protocol 1 MCG/KG/HR Insulin Human Lispro 0 unit 07/07/19 12:00 07/23/19 00:03 Humalog SUB-Q Not Given Q6HR [facility] Protocol Levetiracetam 750 mg 07/06/19 11:00 07/22/19 21:07 Keppra FEEDTUBE 750 mg Q12HR TAMMIE Administration Metoprolol Tartrate 5 mg 07/12/19 15:08 07/12/19 15:30 Metoprolol IV 5 mg Q6HR PRN Administration Tachyarrhythmias Multi-Ingred Cream/Lotion/Oil/Oint 1 applic 07/03/19 19:56 07/05/19 13:19 Artificial Tears Ophth Oint OU 1 applic Q4HR PRN Administration Dry Eye(s) Naloxone HCl 0.1 mg 07/04/19 04:24 Naloxone IV Q2MIN PRN Res Rate </= 8 or 02 SAT < 92% Oxycodone/Acetaminophen 1 tab 07/19/19 14:17 Percocet 5/325 PO Q4H PRN Pain, Moderate (4-6) Scopolamine 1 each 07/10/19 11:00 07/22/19 10:30 Transderm-Scop TD 1 each Q3D TAMMIE Administration Simple Syrup 15 ml 07/04/19 10:04 07/10/19 21:56 Simple Syrup FEEDTUBE 15 ml PRN PRN Administration Hypoglycemia Simple Syrup 30 ml 07/04/19 10:04 Simple Syrup FEEDTUBE PRN PRN Hypoglycemia Sodium Bicarbonate 325 mg 07/04/19 10:04 07/20/19 10:20 Sodium Bicarbonate FEEDTUBE 325 mg PRN PRN Administration For Clogged Feeding Tube Sodium Chloride 10 ml 07/04/19 10:00 07/22/19 21:13 Sodium Chloride Flush Syringe 10 Ml IV 10 ml BID TAMMIE Administration Sodium Chloride 10 ml 07/04/19 04:24 Sodium Chloride Flush Syringe 10 Ml IV PRN PRN LINE FLUSH Sodium Hypochlorite 1 applic 07/10/19 14:00 07/22/19 21:07 Dakin's Half Strength TP 1 applicatio BID TAMMIE Administration Nutrition/Malnutrition Assess - Dietary Evaluation Nutrition/Malnutrition Findings: Nutrition Notes Start: 07/04/19 09:17 Freq: Status: Active Protocol: Document 07/18/19 13:34 LM (Rec: 07/18/19 13:41 LM [email or web address]) Nutrition Notes Initial or Follow up Reassessment Current Diagnosis Acute Kidney Injury,COPD, Decubitus(Pressure Ulcer), Diabetes,Hypertension Other Pertinent Diagnosis COVID-19 (+), pneu, seizures, schizophrenia, Buttock and R foot PU, Current Diet Nepro 1.8 at 45ml/hr Labs/Tests Reviewed Pertinent Medications Levophed Height 5 ft 11 in Weight 84 kg [place] Body Weight (kg) 78.18 BMI 25.8 Weight Status Overweight Subjective/Other Information PEG tube was leaking per RN notes yesterday. RN stated he is now tolerating TF at goal. Percent of energy/protein needs met: 100%/80% Burn Absent Trauma Absent Current % PO Negligible Minimum of two criteria No physical signs of malnutrition #2 Nutrition Diagnosis Increased nutrient needs ( specify in comment below) Diagnosis Progress(for reassessment Continues documentation) #1 Nutrition Diagnosis Inadequate oral intake Diagnosis Progress(for reassessment Continues documentation) Is patient on ventilator? Yes Is Patient Ambulatory and/or Out of Bed No REE-([place]-confined to bed) [phone] Additional Notes Protein: 109-182g (1.2-2g/kg) Fluid: 1 ml/kcal or per MD Nutrition Intervention Change Diet Order: TF Nutrition Support: Nepro 1.8 at 45ml/hr Flush 200ml q4h Kcal 1,944 Protein (gm) 87 Fluid (mL) 785 Goal #1 TF tolerance Goal #2 Meet at least 75% of energy and protein needs Anticipated Discharge Needs: unable to determine at this time Follow-Up By: 07/23/19 Additional Comments F/U for TF tolerance
[2019-07-23] MEDS: DOCUSATE SODIUM 100 MG/10 ML ORAL LIQD PO SCH ×2 (11:48→21:15)
[2019-07-23] MEDS: FAMOTIDINE 20 MG TAB PO SCH ×2 (11:49→21:15)
[2019-07-23] MEDS: levETIRAcetam 500 MG/5 ML ORAL LIQD FEEDTUBE SCH ×2 (11:49→21:15)
[2019-07-23] MEDS: ASPIRIN 81 MG TAB CHEW PO SCH (11:49)
[2019-07-23] MEDS: FOLIC ACID 1 MG TAB PO SCH (11:49)
[2019-07-23] MEDS: SODIUM HYPOCHLORITE, DAKIN'S 1/2 STRENGTH (0.25%) 473 ML TOPICAL SOLN TP SCH ×2 (11:50→21:16)
[2019-07-23] MEDS ORDERED: PANTOPRAZOLE 80 MG in SODIUM CHLORIDE 0.9% 100 ML IV SCH (12:00)
[2019-07-23] MEDS ORDERED: MAGNESIUM CITRATE 300 ML ORAL LIQD PO ONE (13:00)
--- NOTE | 2019-07-23 16:11 | Progress Note ---
Assessment and Plan Cultures: 07/03/2019 urine culture: No growth 07/03/2019 Tracheal aspirate: E.coli A/P: 69-year-old male with CVA, hypertension, dementia, schizophrenia, alcohol use disorder was admitted to the emergency room after being brought in by EMS with progressive shortness of breath and unresponsiveness. He was noted to have agonal breathing and a faint pulse requiring CPR. It seems patient was on hospice recently. #Shock, likely septic: Lactic acidosis. Remains off pressors. #Severe COVID-19 disease and pneumonia: Elevated markers. Completed Plaquenil. Completed Ceftriaxone for treatment E.coli in tracheal aspirate. #Acute respiratory failure: on mechanical ventilation. #Transaminitis: Likely from COVID-19, shock #Leucocytosis: ?reactive from above. Recs: continue supportive care for COVID-19 agree with DNR. Poor prognosis. Mekhi Barboza MD [facility] ([facility]) M: [phone] O: [phone] F: [phone] Subjective Date of service: 07/23/19 Principal diagnosis: Bilateral pneumonia, severe sepsis with septic shock, encephalopathy Interval history: Afebrile, no acute change today. Objective - Exam Narrative Exam: Physical Exam (reviewed in chart due to PPE conservation) Constitutional: intubated, sedated, on the vent Head, Ears, Nose: normocephalic, atraumatic Eyes: limited due to PPE conservation strategy Neck: intubated Oral: intubated Cardiovascular: limited due to PPE conservation strategy Respiratory: limited due to PPE conservation strategy GI: limited due to PPE conservation strategy Musculoskeletal: limited due to PPE conservation strategy Skin: limited due to PPE conservation strategy Hem/Lymphatic: limited due to PPE conservation strategy Psych: no agitation Neurological: sedated, intubated, on the vent, exam limited - Constitutional Vitals: Vital Signs Temp Pulse Resp BP Pulse Ox 98 F 113 H 18 117/65 100 07/23/19 12:00 07/23/19 16:00 07/23/19 16:00 07/23/19 16:00 07/23/19 16:00 Temperature -Last 24 Hours Temperature 98 F Temperature 97.9 F Temperature 98.7 F Temperature 98.7 F Temperature 99.0 F Temperature 98.8 F Temperature 98.8 F - Labs CBC & Chem 7: 07/22/19 05:38 07/23/19 04:52 Labs: Abnormal lab results 07/22/19 07/22/19 07/23/19 Range/Units 18:20 23:51 04:52 ABG HCO3 (20.0-26.0) mmol/L ABG Hemoglobin (14.0-18.0) gm/dl Oxyhemoglobin (95.0-99.0) % BUN 24 H (9-20) mg/dL Creatinine 0.4 L (0.8-1.5) mg/dL POC Glucose 107 H 110 H (70-105) 07/23/19 Range/Units 06:00 ABG HCO3 27.0 H (20.0-26.0) mmol/L ABG Hemoglobin 9.4 L (14.0-18.0) gm/dl Oxyhemoglobin 94.0 L (95.0-99.0) % BUN (9-20) mg/dL Creatinine (0.8-1.5) mg/dL POC Glucose (70-105)
[2019-07-24] MEDS: INSULIN LISPRO 100 UNIT/ML SUB-Q SCH ×2 (00:15→05:24)
[2019-07-24] MEDS: fentaNYL DRIP Premix 2,000 MCG/100 ML BAG IV SCH ×2 (04:07→18:49)
[2019-07-24 04:54] LABS: ABG Base Excess 2.6 mmol/L (-2.0-3.0); ABG HCO3 28.5 mmol/L (20.0-26.0); ABG Methemoglobin 0.5 % (0.0-1.5); ABG Oxygen Saturation 94.5 % (95.0-99.0); ABG PCO2 51.1 mm Hg; ABG PH 7.364 pH Units (7.350-7.450); ABG PO2 73.5 mm Hg (80.0-90.0)
--- NOTE | 2019-07-24 09:22 | Progress Note ---
Assessment and Plan 1. Hypoantremia: Suspect SIADH. Sodium level recently improved to 140 on 07/22. No new labs to review this morning. Monitor Sodium level. 2. FEN: No new labs to review at time of dictation. Will monitor for any new lab results. Metabolic acidosis, improved, monitor. Hypokalemia, improved, monitor. Monitor volume status and lytes. 3. Acute kidney injury: Vasomotor MIRANDA likely 2/2 persistent hypotension. Initial bump in creatinine was 07/14. Creatinine is better. Monitor renal function. Avoid nephrotoxic agents. Meds dosage based on GFR. 4. Acute hypoxic respiratory failure: Currently intubated, sedated, and on vent. Pulmonary following. 5. Severe Sepsis, POA: Followed by ID. 6. Severe COVID-19 pneumonia. 7. Shock: Off pressors. Monitor BP closely. 8. Microcytic anemia, POA: Has received total of 4 units PRBC. Hgb improved 07/15 s/p PRBC. Monitor hgb. 9. Possible occlusion of PEG tube: Occlusion noted by staff. Imaging 07/16 confirmed [address] is in [address]. 10. Diabetes mellitus. 11. COPD. 12. Encephalopathy, POA: Metabolic. Subjective Date of service: 07/24/19 Principal diagnosis: Bilateral pneumonia, severe sepsis with septic shock, encephalopathy Interval history: Patient was only seen from outside the glass door to prevent exposure to COVID- 19. PPE is also limited supply. Reviewed all notes, vitals, and labs to date.. No acute events reported overnight. Objective - Exam Narrative Exam: General appearance: intubated on ventilator, carroll bag HEENT: not examined Neck: not examined Respiratory: not examined Heart: sinus tach on the monitor Gastrointestinal: not examined Integumentary: not examined Neurologic: not examined, sedated Ext: not examined - Vital Signs Vital signs: Vital Signs - 12hr 07/23/19 07/23/19 07/23/19 21:30 21:46 22:00 Temperature Pulse Rate 114 H 116 H 117 H Pulse Rate [ From Monitor] Respiratory 16 17 19 Rate Blood Pressure 120/67 127/69 120/67 O2 Sat by Pulse 100 100 100 Oximetry 07/23/19 07/23/19 07/23/19 22:16 22:30 22:46 Temperature Pulse Rate 117 H 117 H 117 H Pulse Rate [ From Monitor] Respiratory 18 18 18 Rate Blood Pressure 119/67 119/67 O2 Sat by Pulse 99 99 99 Oximetry 07/23/19 07/23/19 07/23/19 23:00 23:14 23:16 Temperature 98.5 F Pulse Rate 116 H 114 H Pulse Rate [ From Monitor] Respiratory 16 18 Rate Blood Pressure 123/69 123/69 O2 Sat by Pulse 99 100 Oximetry 07/23/19 07/23/19 07/23/19 23:30 23:46 23:50 Temperature Pulse Rate 114 H 113 H 114 H Pulse Rate [ From Monitor] Respiratory 17 16 17 Rate Blood Pressure 115/63 115/63 115/63 O2 Sat by Pulse 100 100 100 Oximetry 07/24/19 07/24/19 07/24/19 00:00 00:16 00:18 Temperature Pulse Rate 115 H 116 H 117 H Pulse Rate [ 115 H From Monitor] Respiratory 16 17 Rate Blood Pressure 120/64 120/64 120/64 O2 Sat by Pulse 100 100 100 Oximetry 07/24/19 07/24/19 07/24/19 00:30 00:46 01:00 Temperature Pulse Rate 116 H 116 H 116 H Pulse Rate [ From Monitor] Respiratory 17 16 16 Rate Blood Pressure 121/66 121/66 117/71 O2 Sat by Pulse 100 100 100 Oximetry 07/24/19 07/24/19 07/24/19 01:16 01:30 01:46 Temperature Pulse Rate 116 H 115 H 115 H Pulse Rate [ From Monitor] Respiratory 15 16 16 Rate Blood Pressure 117/71 121/67 121/67 O2 Sat by Pulse 100 100 100 Oximetry 07/24/19 07/24/19 07/24/19 02:00 02:16 02:30 Temperature Pulse Rate 114 H 115 H 113 H Pulse Rate [ From Monitor] Respiratory 15 16 17 Rate Blood Pressure 121/67 121/67 122/67 O2 Sat by Pulse 100 100 100 Oximetry 07/24/19 07/24/19 07/24/19 02:46 03:00 03:16 Temperature Pulse Rate 113 H 112 H 115 H Pulse Rate [ From Monitor] Respiratory 15 16 15 Rate Blood Pressure 121/67 119/65 122/67 O2 Sat by Pulse 100 100 100 Oximetry 07/24/19 07/24/19 07/24/19 03:25 03:30 03:46 Temperature 98.6 F Pulse Rate 115 H 119 H Pulse Rate [ From Monitor] Respiratory 16 18 Rate Blood Pressure 120/67 120/67 O2 Sat by Pulse 100 99 Oximetry 07/24/19 07/24/19 07/24/19 04:00 04:16 04:30 Temperature Pulse Rate 122 H 119 H 118 H Pulse Rate [ 121 H From Monitor] Respiratory 16 15 16 Rate Blood Pressure 123/64 120/67 116/62 O2 Sat by Pulse 99 99 99 Oximetry 07/24/19 07/24/19 07/24/19 04:32 04:46 05:00 Temperature Pulse Rate 118 H 114 H 115 H Pulse Rate [ From Monitor] Respiratory 17 17 Rate Blood Pressure 116/62 116/62 123/59 O2 Sat by Pulse 100 100 99 Oximetry 07/24/19 07/24/19 07/24/19 05:16 05:30 05:46 Temperature Pulse Rate 115 H 114 H 115 H Pulse Rate [ From Monitor] Respiratory 17 16 17 Rate Blood Pressure 123/59 117/62 117/62 O2 Sat by Pulse 99 98 100 Oximetry 07/24/19 07/24/19 07/24/19 06:00 06:16 06:30 Temperature Pulse Rate 113 H 115 H 115 H Pulse Rate [ From Monitor] Respiratory 15 16 16 Rate Blood Pressure 112/67 112/67 123/64 O2 Sat by Pulse 100 100 100 Oximetry 07/24/19 07/24/19 07/24/19 06:46 07:00 07:16 Temperature Pulse Rate 113 H 114 H 114 H Pulse Rate [ From Monitor] Respiratory 16 15 18 Rate Blood Pressure 123/64 120/69 123/64 O2 Sat by Pulse 100 100 100 Oximetry 07/24/19 07/24/19 07/24/19 07:28 07:30 07:46 Temperature Pulse Rate 115 H 114 H 114 H Pulse Rate [ From Monitor] Respiratory 16 15 Rate Blood Pressure 123/64 114/69 120/69 O2 Sat by Pulse 100 100 100 Oximetry 07/24/19 07/24/19 07/24/19 08:00 08:16 08:30 Temperature 97.8 F Pulse Rate 114 H 114 H 114 H Pulse Rate [ From Monitor] Respiratory 16 17 16 Rate Blood Pressure 117/62 114/69 115/63 O2 Sat by Pulse 100 100 100 Oximetry 07/24/19 07/24/19 08:46 09:00 Temperature Pulse Rate 113 H 112 H Pulse Rate [ From Monitor] Respiratory 15 14 Rate Blood Pressure 115/63 120/64 O2 Sat by Pulse 100 100 Oximetry - Lab 07/22/19 05:38 07/23/19 04:52 Most recent lab results ABG pH 7.364 pH Units (7.350-7.450) 07/24/19 04:40 ABG pCO2 51.1 mm Hg 07/24/19 04:40 ABG pO2 73.5 mm Hg (80.0-90.0) L 07/24/19 04:40 ABG HCO3 28.5 mmol/L (20.0-26.0) H 07/24/19 04:40 ABG O2 Saturation 94.5 % (95.0-99.0) L 07/24/19 04:40 Calcium 9.3 mg/dL (8.4-10.2) 07/23/19 04:52 Phosphorus 3.60 mg/dL (2.5-4.5) 07/05/19 04:00 Magnesium 1.80 mg/dL (1.7-2.3) 07/11/19 05:14 Medications & Allergies - Medications Allergies/Adverse Reactions: Allergies No Known Allergies Allergy (Unverified 09/09/16 16:29) Home Medications: Home Medications Medication Instructions Recorded Confirmed Last Taken Type Acetaminophen [Tylenol] 500 mg PO TID 07/04/19 07/04/19 Unknown History Albuterol Sulfate [Proair 90 mcg IH TID 07/04/19 07/04/19 Unknown History Digihaler] Amlodipine Besylate [Norvasc] 2.5 mg PO QDAY 07/04/19 07/04/19 Unknown History Aspirin [Aspirin BABY CHEW TAB] 81 mg PO QDAY 07/04/19 07/04/19 Unknown History Atorvastatin Calcium [Lipitor] 80 mg PO QDAY 07/04/19 07/04/19 Unknown History Benztropine Mesylate 0.5 mg PO QDAY 07/04/19 07/04/19 Unknown History Budesonide/Formoterol Fumarate 10.2 gm IH BID 07/04/19 07/04/19 Unknown History [Budesonide-Formoterol 160-4.5] Divalproex ER [DepaKOTE ER] 1,000 mg PO QDAY 07/04/19 07/04/19 Unknown History Docusate Sodium [Colace] 100 mg PO QDAY 07/04/19 07/04/19 Unknown History Folic Acid [Folvite] 1 mg PO QDAY 07/04/19 07/04/19 Unknown History Hydrophilic Ointment [Dermafix] 113 gm TP QDAY 07/04/19 07/04/19 Unknown History Losartan [Cozaar] 100 mg PO QDAY 07/04/19 07/04/19 Unknown History Metformin HCl [Metformin HCl ER] 500 mg PO QDAY 07/04/19 07/04/19 Unknown History Metoprolol Tartrate 25 mg PO BID 07/04/19 07/04/19 Unknown History Multivit with Minerals/Ginseng 1 each PO QDAY 07/04/19 07/04/19 Unknown History [Super Ginseng Multivit Cap] Quetiapine Fumarate [SEROquel Xr] 400 mg PO QHS 07/04/19 07/04/19 Unknown History Sertraline HCl [Zoloft] 100 mg PO QDAY 07/04/19 07/04/19 Unknown History Sildenafil Citrate [Viagra] 100 mg PO QDAY PRN 07/04/19 07/04/19 Unknown History Tamsulosin [Flomax] 0.4 mg PO QDAY 07/04/19 07/04/19 Unknown History Active Medications: Generic Name Dose Route Start Last Admin Trade Name Freq PRN Reason Stop Dose Admin Acetaminophen 650 mg 07/04/19 04:24 Tylenol ND Q6H PRN Pain MILD(1-3)/Fever >100.5/MURO Acetaminophen 650 mg 07/10/19 04:00 07/15/19 20:35 Tylenol PO 650 mg Q6HR PRN Administration Pain, Mild (1-3) FEVER Lipase/Protease/Amylase 1 each 07/04/19 10:04 07/20/19 06:15 Pancrewhitley Gilbert 10,500 Unit FEEDTUBE 1 each PRN PRN Administration For Clogged Feeding Tube Aspirin 81 mg 07/05/19 10:00 07/23/19 11:49 Baby Aspirin PO 81 mg QDAY TAMMIE Administration Dextrose 50 ml 07/04/19 06:54 D50w (25gm) Syringe IV Q30MIN PRN Hypoglycemia Protocol Docusate Sodium 100 mg 07/10/19 10:00 05/04/20 21:15 Colace PO 100 mg BID [facility] Administration Enoxaparin Sodium 40 mg 07/24/19 10:00 Enoxaparin SUB-Q QDAY@1000 TAMMIE Famotidine 20 mg 07/23/19 22:00 07/23/19 21:15 Pepcid PO 20 mg BID [facility] Administration Fentanyl 50 mcg 07/21/19 15:18 Sublimaze IV Q10MIN PRN ANALGESIA Folic Acid 1 mg 07/05/19 10:00 07/23/19 11:49 Folvite PO 1 mg QDAY [facility] Administration Hydrophilic Ointment 1 applic 07/03/19 19:56 07/05/19 17:42 Vaseline Lip Therapy TP 1 applic Q2HR PRN Administration Dry Lips Norepinephrine 4 mg in 250 mls @ 7.5 mls/hr 07/03/19 23:00 07/20/19 01:00 Levophed Drip 4 Mg/Ns 250 Ml IV Infused TITR TAMMIE Titration Protocol 2 MCG/MIN Fentanyl Citrate 2,000 mcg in 100 mls @ 4.75 mls/hr 07/21/19 16:00 07/24/19 04:07 Fentanyl Drip Premix IV 2 mcg/kg/hr TITR TAMMIE 9.5 mls/hr Administration Protocol 1 MCG/KG/HR Insulin Human Lispro 0 unit 07/07/19 12:00 07/24/19 05:24 Humalog SUB-Q Not Given Q6HR [facility] Protocol Levetiracetam 750 mg 07/06/19 11:00 07/23/19 21:15 Keppra FEEDTUBE 750 mg Q12HR TAMMIE Administration Metoprolol Tartrate 5 mg 07/12/19 15:08 07/12/19 15:30 Metoprolol IV 5 mg Q6HR PRN Administration Tachyarrhythmias Multi-Ingred Cream/Lotion/Oil/Oint 1 applic 07/03/19 19:56 07/05/19 13:19 Artificial Tears Ophth Oint OU 1 applic Q4HR PRN Administration Dry Eye(s) Naloxone HCl 0.1 mg 07/04/19 04:24 Naloxone IV Q2MIN PRN Res Rate </= 8 or 02 SAT < 92% Oxycodone/Acetaminophen 1 tab 07/19/19 14:17 Percocet 5/325 PO Q4H PRN Pain, Moderate (4-6) Scopolamine 1 each 07/10/19 11:00 07/22/19 10:30 Transderm-Scop TD 1 each Q3D TAMMIE Administration Simple Syrup 15 ml 07/04/19 10:04 07/10/19 21:56 Simple Syrup FEEDTUBE 15 ml PRN PRN Administration Hypoglycemia Simple Syrup 30 ml 07/04/19 10:04 Simple Syrup FEEDTUBE PRN PRN Hypoglycemia Sodium Bicarbonate 325 mg 07/04/19 10:04 07/20/19 10:20 Sodium Bicarbonate FEEDTUBE 325 mg PRN PRN Administration For Clogged Feeding Tube Sodium Chloride 10 ml 07/04/19 10:00 07/23/19 21:16 Sodium Chloride Flush Syringe 10 Ml IV 10 ml BID TAMMIE Administration Sodium Chloride 10 ml 07/04/19 04:24 Sodium Chloride Flush Syringe 10 Ml IV PRN PRN LINE FLUSH Sodium Hypochlorite 1 applic 07/10/19 14:00 07/23/19 21:16 Dakin's Half Strength TP 1 applicatio BID TAMMIE Administration
--- NOTE | 2019-07-24 09:37 | Progress Note ---
Assessment and Plan Assessment and plan: 69-year-old male patient with PMH of CVA with RHP, HTN, DM2, SCZ, Dementia, Alcohol use D/o, Seizure D/O, presents to the emergency department via EMS from home with progressive SOB and impending espiratory failure with an unresponsive . PT was intubated was admitted through emergency room to ICU treated for sepsis, b/l PNA, acute respiratory failure received antibiotics. Patient was tested positive for COVID19. Evaluated by ID , received antibiotics Plaquenil, and inflammatory markers were checked and followed. Patient was hypotensive requiring Levophed, continues to be hypotensive currently on Levophed, unable to wean remains intubated on ventilatory support, critically ill, DNR status howev er family wants full treatment. --COVid-19 infection with pneumonia with severe sepsis Received Plaquenil and cefepime, monitor off antibiotics ID following --Septic shock: On Levophed Persistent hypotension, titrate to systolic blood pressure more than 100 -- Acute respiratory Failure with Hypoxia Due to bilateral PNA with COVID 19 infection. On ventilatory support, unable to wean Pulmonary critical following --COPD with exacerbation Likely due to COVID-19 pneumonia Continue scheduled nebs --Anemia, Microcytic persistent s/p total 3 unit of PRBC, today Hb today 9.1 --Pressure Ulcers: POA buttocks, right lateral foot area wound and supportive care --Hyponatremia, resolved --DM type 2: Accu-Chek SCC tube feeding, insulin as needed --h/o HTN Essential, now hypotensive On Levophed --Seizure D/o/CVA/immobility/BIpolar D/o/SCZ Seizure precautions, antiepileptic medications --Severe PCM, TF supportive care, dietary following patient is DNR- Called and verified information Very poor prognosis, Recommend hospice 07/04: COVID +ve, start on plaquinil, called no answer 07/05: transfuse one unit PRBC, Hb dropped to ~6, called and updated 07/06; H&H stable, serum chemistry improved. On mechanical ventilation with high inflammatory markers. Continue Plaquenil and empiric antibiotics. ID following, prognosis remains guarded and extremely poor. 07/07: On mechanical ventilation with high inflammatory markers. Continue Plaquenil and empiric antibiotics. ID following, prognosis remains guarded and extremely poor. 07/08: Called today and verified the CODE STATUS. Patient remains DNR. He is still intubated, with poor prognosis. Continue to follow inflammatory markers. 07/09 wean off from vent as tolerated, completed empiric antibiotic and Plaqu enil 07/10 wean off from vent as tolerated. poor prognosis 07/11 hb 6.7 today, transfuse one PRBC. wean off from vent as tolerated. poor prognosis 07/12 remains critically on vent. Hb 6.9 07/13 Hb dropped to 6.6, transfuse 1 unit of PRBC, remains on vent critically ill Hypotensive, fluid bolus, if no improvement start Levophed 07/14; remains anemic with hemoglobin of 6.8, received total 3 units of PRBC Additional 1 unit of PRBC today, stool for occult blood to rule out GI causes Started back on Levophed due to hypotension 07/15; patient remains critically ill, hypotensive on Levophed 07/16: Today remains intubated on vent, persistent hypotension on Levophed 07/17; clinically no change, pressor dependent[on Levophed] DNR status 07/18: Patient remains hypotensive requiring Levophed, intubated on vent Unable to wean, critically ill. DNR 07/20/2019 Patient remains hypotensive requiring Levophed, intubated on vent. Patient currently with AC mode ventilation, rate 20, tidal volume 500, FiO2 40% and PEEP 6. Patient is a poor prognosis and apparently was on hospice recently. 07/21/2019. Patient with PEG tube that was clogged yesterday. surgery evaluated the patient and noted Very long PEG tubing with thick material inside. The entire tube was stripped and a large amount of formed tube feed was expressed. The tube was then flushed with sprite and flushed easily. Tube clamped. Patient currently with AC mode ventilation, rate 20, tidal volume 500, FiO2 40% and PEEP 6. Patient is a poor prognosis and apparently was on hospice recently. 07/22/2019. Patient currently with AC mode ventilation, rate 20, tidal volume 500, FiO2 30% and PEEP 6. Patient on sedation with fentanyl drip. Continue Levophed to maintain MAP greater than 65. Patient is a poor prognosis and apparently was on hospice recently. 07/23/2019. Patient currently with AC mode ventilation, rate 20, tidal volume 500, FiO2 30% and PEEP 6. Patient on sedation with fentanyl drip. Continue Levophed to maintain MAP greater than 65. Patient is a poor prognosis and apparently was on hospice recently. 07/24/2019 Patient with Covid-19 infection with pneumonia, acute respiratory failure, intubated on ventilator. No more fever. Continue current management. The high probability of a clinically significant, sudden or life threatening de terioration of the [respiratory, CVS, SPECIALIST PHYSICIAN] system(s) required my full and direct attention, interve ntion and personal management. The aggregate critical care time was [34] minutes. This time is in addition to time spent performing reported procedures but includes the following: [x] Data Review and interpretation [x] Patient assessment and monitoring of vital signs [x] Documentation [x] Medication orders and management History Interval history: patient with Covid-19 infection Still intubated No more fever Hospitalist Physical - Physical exam Narrative exam: GEN: Not in acute distress, intubated,obese HEENT: Normocephalic, atraumatic, Neck: supple, No JVD Lungs: Bilateral crackles, heart;S1 and S2 reg, no murmurs, rubs or gallop Abd:soft, non tender, non distended, normal bowel sounds,PEG tube Ext: No edema, no clubbing, no cyanosis, Neuro: Intubated, on ventilator - Constitutional Vitals: Temp Pulse Resp BP Pulse Ox 97.8 F 112 H 14 120/64 100 07/24/19 08:00 07/24/19 09:00 07/24/19 09:00 07/24/19 09:00 07/24/19 09:00 General appearance: Present: no acute distress, well-nourished, other (Orally intubated on vent) Results - Labs CBC & Chem 7: 07/22/19 05:38 07/23/19 04:52 Labs: Laboratory Last Values WBC 12.6 K/mm3 (4.5-11.0) H 07/22/19 05:38 RBC 3.19 M/mm3 (3.65-5.03) L 07/22/19 05:38 Hgb 8.9 gm/dl (11.8-15.2) L 07/22/19 05:38 Hct 27.5 % (35.5-45.6) L 07/22/19 05:38 MCV 86 fl (84-94) 07/22/19 05:38 MCH 28 pg (28-32) 07/22/19 05:38 MCHC 32 % (32-34) 07/22/19 05:38 RDW 18.9 % (13.2-15.2) H 07/22/19 05:38 Plt Count 1101 K/mm3 (140-440) H* 07/22/19 05:38 Lymph % (Auto) 4.9 % (13.4-35.0) L 07/19/19 08:45 Wallace % (Auto) 12.2 % (0.0-7.3) H 07/22/19 05:38 Eos % (Auto) 1.0 % (0.0-4.3) 07/19/19 08:45 Baso % (Auto) 0.5 % (0.0-1.8) 07/19/19 08:45 Lymph # 0.8 K/mm3 (1.2-5.4) L 07/19/19 08:45 Wallace # 1.5 K/mm3 (0.0-0.8) H 07/22/19 05:38 Eos # 0.2 K/mm3 (0.0-0.4) 07/19/19 08:45 Baso # 0.1 K/mm3 (0.0-0.1) 07/19/19 08:45 Add Manual Diff Complete 07/22/19 05:38 Total Counted 100 07/22/19 05:38 Seg Neutrophils % 72.8 % (40.0-70.0) H 07/22/19 05:38 Seg Neuts % (Manual) 76.0 % (40.0-70.0) H 07/22/19 05:38 Band Neutrophils % 1.0 % 07/22/19 05:38 Lymphocytes % (Manual) 7.0 % (13.4-35.0) L 07/22/19 05:38 Reactive Lymphs % (Man) 0 % 07/22/19 05:38 Monocytes % (Manual) 14.0 % (0.0-7.3) H 07/22/19 05:38 Eosinophils % (Manual) 2.0 % (0.0-4.3) 07/22/19 05:38 Basophils % (Manual) 0 % (0.0-1.8) 07/22/19 05:38 Metamyelocytes % 0 % 07/22/19 05:38 Myelocytes % 0 % 07/22/19 05:38 Promyelocytes % 0 % 07/22/19 05:38 Blast Cells % 0 % 07/22/19 05:38 Nucleated RBC % 1.0 % (0.0-0.9) H 07/22/19 05:38 Seg Neutrophils # 9.2 K/mm3 (1.8-7.7) H 07/22/19 05:38 Seg Neutrophils # Man 9.6 K/mm3 (1.8-7.7) H 07/22/19 05:38 Band Neutrophils # 0.1 K/mm3 07/22/19 05:38 Lymphocytes # (Manual) 0.9 K/mm3 (1.2-5.4) L 07/22/19 05:38 Abs React Lymphs (Man) 0.0 K/mm3 07/22/19 05:38 Monocytes # (Manual) 1.8 K/mm3 (0.0-0.8) H 07/22/19 05:38 Eosinophils # (Manual) 0.3 K/mm3 (0.0-0.4) 07/22/19 05:38 Basophils # (Manual) 0.0 K/mm3 (0.0-0.1) 07/22/19 05:38 Metamyelocytes # 0.0 K/mm3 07/22/19 05:38 Myelocytes # 0.0 K/mm3 07/22/19 05:38 Promyelocytes # 0.0 K/mm3 07/22/19 05:38 Blast Cells # 0.0 K/mm3 07/22/19 05:38 WBC Morphology Not Reportable 07/22/19 05:38 Hypersegmented Neuts Not Reportable 07/22/19 05:38 Hyposegmented Neuts Not Reportable 07/22/19 05:38 Hypogranular Neuts Not Reportable 07/22/19 05:38 Smudge Cells Not Reportable 07/22/19 05:38 Toxic Granulation Not Reportable 07/22/19 05:38 Toxic Vacuolation Not Reportable 07/22/19 05:38 Dohle Bodies Not Reportable 07/22/19 05:38 Pelger-Huet Anomaly Not Reportable 07/22/19 05:38 Mendy Rods Not Reportable 07/22/19 05:38 Platelet Estimate Consistent w auto 07/22/19 05:38 Clumped Platelets Not Reportable 07/22/19 05:38 Plt Clumps, EDTA Not Reportable 07/22/19 05:38 Large Platelets Not Reportable 07/22/19 05:38 Giant Platelets Not Reportable 07/22/19 05:38 Platelet Satelliting Not Reportable 07/22/19 05:38 Plt Morphology Comment Not Reportable 07/22/19 05:38 RBC Morphology Not Reportable 07/22/19 05:38 Dimorphic RBCs Not Reportable 07/22/19 05:38 Polychromasia Not Reportable 07/22/19 05:38 Hypochromasia Not Reportable 07/22/19 05:38 Poikilocytosis Not Reportable 07/22/19 05:38 Anisocytosis 1+ 07/22/19 05:38 Microcytosis Not Reportable 07/22/19 05:38 Macrocytosis Not Reportable 07/22/19 05:38 Spherocytes Not Reportable 07/22/19 05:38 Pappenheimer Bodies Not Reportable 07/22/19 05:38 Sickle Cells Not Reportable 07/22/19 05:38 Target Cells Not Reportable 07/22/19 05:38 Tear Drop Cells Not Reportable 07/22/19 05:38 Ovalocytes Not Reportable 07/22/19 05:38 Helmet Cells Not Reportable 07/22/19 05:38 Altman-Ranlo Bodies Not Reportable 07/22/19 05:38 Johnston Rings Not Reportable 07/22/19 05:38 [place] Cells Not Reportable 07/22/19 05:38 Bite Cells Not Reportable 07/22/19 05:38 Crenated Cell Not Reportable 07/22/19 05:38 Elliptocytes Not Reportable 07/22/19 05:38 Acanthocytes (Spur) Not Reportable 07/22/19 05:38 Rouleaux Not Reportable 07/22/19 05:38 Hemoglobin C Crystals Not Reportable 07/22/19 05:38 Schistocytes Not Reportable 07/22/19 05:38 Malaria parasites Not Reportable 07/22/19 05:38 Jeevan Bodies Not Reportable 07/22/19 05:38 Hem Pathologist Commnt No 07/22/19 05:38 PT 16.0 Sec. (12.2-14.9) H 07/03/19 22:20 INR 1.26 (0.87-1.13) H 07/03/19 22:20 D-Dimer 1142.18 ng/mlDDU (0-234) H 07/08/19 00:45 ABG pH 7.364 pH Units (7.350-7.450) 07/24/19 04:40 ABG pCO2 51.1 mm Hg 07/24/19 04:40 ABG pO2 73.5 mm Hg (80.0-90.0) L 07/24/19 04:40 ABG HCO3 28.5 mmol/L (20.0-26.0) H 07/24/19 04:40 ABG O2 Saturation 94.5 % (95.0-99.0) L 07/24/19 04:40 ABG O2 Content 11.7 (0.0-44) 07/24/19 04:40 ABG Base Excess 2.6 mmol/L (-2.0-3.0) 07/24/19 04:40 ABG Hemoglobin 8.9 gm/dl (14.0-18.0) L 07/24/19 04:40 ABG Carboxyhemoglobin 1.4 % (0.0-5.0) 07/24/19 04:40 ABG Methemoglobin 0.5 % (0.0-1.5) 07/24/19 04:40 Oxyhemoglobin 92.7 % (95.0-99.0) L 07/24/19 04:40 FiO2 30 % 07/24/19 04:40 Sodium 140 mmol/L (137-145) 07/23/19 04:52 Potassium 3.6 mmol/L (3.6-5.0) 07/23/19 04:52 Chloride 105.9 mmol/L (98-107) 07/23/19 04:52 Carbon Dioxide 26 mmol/L (22-30) 07/23/19 04:52 Anion Gap 12 mmol/L 07/23/19 04:52 BUN 24 mg/dL (9-20) H 07/23/19 04:52 Creatinine 0.4 mg/dL (0.8-1.5) L 07/23/19 04:52 Estimated GFR > 60 ml/min 07/23/19 04:52 BUN/Creatinine Ratio 60 % 07/23/19 04:52 Glucose 90 mg/dL (75-100) 07/23/19 04:52 POC Glucose 114 (70-105) H 07/24/19 05:25 Osmolality 268 Mosm/kg 07/05/19 04:00 Lactic Acid 3.30 mmol/L (0.7-2.0) H* 07/04/19 07:05 Uric Acid 7.2 mg/dL (3.5-7.6) 07/05/19 04:00 Calcium 9.3 mg/dL (8.4-10.2) 07/23/19 04:52 Phosphorus 3.60 mg/dL (2.5-4.5) 07/05/19 04:00 Magnesium 1.80 mg/dL (1.7-2.3) 07/11/19 05:14 Iron 9 ug/dL (49-181) L 07/04/19 07:05 TIBC 97 mcg/dL (250-450) L 07/04/19 07:05 Ferritin 839.0 ng/mL (13.0-400.0) H 07/08/19 00:45 Total Bilirubin 0.20 mg/dL (0.1-1.2) 07/04/19 07:05 AST 73 units/L (5-40) H 07/04/19 07:05 ALT 91 units/L (7-56) H 07/04/19 07:05 Alkaline Phosphatase 114 units/L (35-129) 07/04/19 07:05 Ammonia 35.0 umol/L (25-60) 07/03/19 23:58 Lactate Dehydrogenase 277 units/L (91-180) H 07/10/19 04:00 Troponin T 0.013 ng/mL (0.00-0.029) 07/04/19 07:05 C-Reactive Protein 15.10 mg/dL (0.00-1.30) H 07/10/19 04:00 Total Protein 5.5 g/dL (6.3-8.2) L 07/04/19 07:05 Albumin 2.0 g/dL (3.9-5) L 07/04/19 07:05 Albumin/Globulin Ratio 0.6 % 07/04/19 07:05 Triglycerides 33 mg/dL (2-149) 07/03/19 19:57 Cholesterol 47 mg/dL (50-199) L 07/03/19 19:57 LDL Cholesterol Direct 25 mg/dL (50-130) L 07/03/19 19:57 HDL Cholesterol 20 mg/dL (40-59) L 07/03/19 19:57 Cholesterol/HDL Ratio 2.35 % 07/03/19 19:57 Procalcitonin 1.25 ng/mL (<0.15) 07/10/19 04:00 TSH 2.170 mlU/mL (0.270-4.200) 07/03/19 22:20 Total Cortisol 28.0 mcg/dL () 07/05/19 10:11 Urine Color Naima (Yellow) 07/03/19 21:13 Urine Turbidity Cloudy (Clear) 07/03/19 21:13 Urine pH 5.0 (5.0-7.0) 07/03/19 21:13 Ur Specific [place] 1.016 (1.003-1.030) 07/03/19 21:13 Urine Protein 30 mg/dl mg/dL (Negative) 07/03/19 21:13 Urine Glucose (UA) Neg mg/dL (Negative) 07/03/19 21:13 Urine Ketones Neg mg/dL (Negative) 07/03/19 21:13 Urine Blood Neg (Negative) 07/03/19 21:13 Urine Nitrite Neg (Negative) 07/03/19 21:13 Urine Bilirubin Neg (Negative) 07/03/19 21:13 Urine Urobilinogen 2.0 mg/dL (<2.0) 07/03/19 21:13 Ur Leukocyte Esterase Neg (Negative) 07/03/19 21:13 Urine WBC (Auto) 12.0 /HPF (0.0-6.0) H 07/03/19 21:13 Urine RBC (Auto) 6.0 /HPF (0.0-6.0) 07/03/19 21:13 U Epithel Cells (Auto) 1.0 /HPF (0-13.0) 07/03/19 21:13 Urine Bacteria (Auto) 1+ /HPF (Negative) 07/03/19 21:13 Urine WBC Clumps Few /HPF 07/03/19 21:13 Urine Mucus Few /HPF 07/03/19 21:13 Urine Osmolality 293 Mosm/kg 07/05/19 08:15 Vancomycin Trough 23.2 ug/mL (5.0-20.0) H 07/05/19 17:54 Urine Opiates Screen Presumptive negative 07/03/19 21:13 Urine Methadone Screen Presumptive negative 07/03/19 21:13 Ur Barbiturates Screen Presumptive negative 07/03/19 21:13 Ur Phencyclidine Scrn Presumptive negative 07/03/19 21:13 Ur Amphetamines Screen Presumptive negative 07/03/19 21:13 U Benzodiazepines Scrn Presumptive negative 07/03/19 21:13 Urine Cocaine Screen Presumptive negative 07/03/19 21:13 U Marijuana (THC) Screen Presumptive negative 07/03/19 21:13 Drugs of Abuse Note Disclamer 07/03/19 21:13 Plasma/Serum Alcohol < 0.01 % (0-0.07) 07/03/19 23:58 Coronavirus (PCR) Positive (Negative) A 07/04/19 10:09 Blood Type B POSITIVE 07/12/19 08:49 Antibody Screen Negative 07/12/19 08:49 Crossmatch See Detail 07/12/19 08:49 Wright/IV: Voiding Method Indwelling Catheter IV Catheter Type [Left Upper Mid-line arm] IV Catheter Type [Right INT / Saline Lock Forearm] IV Catheter Type [Right Hand] INT / Saline Lock IV Catheter Type [Right CVL Femoral] IV Catheter Type [Left INT / Saline Lock External Jugular] Active Medications - Current Medications Current Medications: Generic Name Dose Route Start Last Admin Trade Name Freq PRN Reason Stop Dose Admin Acetaminophen 650 mg 07/04/19 04:24 Tylenol MS Q6H PRN Pain MILD(1-3)/Fever >100.5/MURO Acetaminophen 650 mg 07/10/19 04:00 07/15/19 20:35 Tylenol PO 650 mg Q6HR PRN Administration Pain, Mild (1-3) FEVER Lipase/Protease/Amylase 1 each 07/04/19 10:04 07/20/19 06:15 Pancrewhitley Gilbert 10,500 Unit FEEDTUBE 1 each PRN PRN Administration For Clogged Feeding Tube Aspirin 81 mg 07/05/19 10:00 07/23/19 11:49 Baby Aspirin PO 81 mg QDAY TAMMIE Administration Dextrose 50 ml 07/04/19 06:54 D50w (25gm) Syringe IV Q30MIN PRN Hypoglycemia Protocol Docusate Sodium 100 mg 07/10/19 10:00 07/23/19 21:15 Colace PO 100 mg BID TAMMIE Administration Enoxaparin Sodium 40 mg 07/24/19 10:00 Enoxaparin SUB-Q QDAY@1000 TAMMIE Famotidine 20 mg 07/23/19 22:00 07/23/19 21:15 Pepcid PO 20 mg BID TAMMIE Administration Fentanyl 50 mcg 07/21/19 15:18 Sublimaze IV Q10MIN PRN ANALGESIA Folic Acid 1 mg 07/05/19 10:00 07/23/19 11:49 Folvite PO 1 mg QDAY [facility] Administration Hydrophilic Ointment 1 applic 07/03/19 19:56 07/05/19 17:42 Vaseline Lip Therapy TP 1 applic Q2HR PRN Administration Dry Lips Norepinephrine 4 mg in 250 mls @ 7.5 mls/hr 07/03/19 23:00 07/20/19 01:00 Levophed Drip 4 Mg/Ns 250 Ml IV Infused TITR TAMMIE Titration Protocol 2 MCG/MIN Fentanyl Citrate 2,000 mcg in 100 mls @ 4.75 mls/hr 07/21/19 16:00 07/24/19 04:07 Fentanyl Drip Premix IV 2 mcg/kg/hr TITR TAMMIE 9.5 mls/hr Administration Protocol 1 MCG/KG/HR Insulin Human Lispro 0 unit 07/07/19 12:00 07/24/19 05:24 Humalog SUB-Q Not Given Q6HR [facility] Protocol Levetiracetam 750 mg 07/06/19 11:00 07/23/19 21:15 Keppra FEEDTUBE 750 mg Q12HR TAMMIE Administration Metoprolol Tartrate 5 mg 07/12/19 15:08 07/12/19 15:30 Metoprolol IV 5 mg Q6HR PRN Administration Tachyarrhythmias Multi-Ingred Cream/Lotion/Oil/Oint 1 applic 07/03/19 19:56 07/05/19 13:19 Artificial Tears Ophth Oint OU 1 applic Q4HR PRN Administration Dry Eye(s) Naloxone HCl 0.1 mg 07/04/19 04:24 Naloxone IV Q2MIN PRN Res Rate </= 8 or 02 SAT < 92% Oxycodone/Acetaminophen 1 tab 07/19/19 14:17 Percocet 5/325 PO Q4H PRN Pain, Moderate (4-6) Scopolamine 1 each 07/10/19 11:00 07/22/19 10:30 Transderm-Scop TD 1 each Q3D TAMMIE Administration Simple Syrup 15 ml 07/04/19 10:04 07/10/19 21:56 Simple Syrup FEEDTUBE 15 ml PRN PRN Administration Hypoglycemia Simple Syrup 30 ml 07/04/19 10:04 Simple Syrup FEEDTUBE PRN PRN Hypoglycemia Sodium Bicarbonate 325 mg 07/04/19 10:04 07/20/19 10:20 Sodium Bicarbonate FEEDTUBE 325 mg PRN PRN Administration For Clogged Feeding Tube Sodium Chloride 10 ml 07/04/19 10:00 07/23/19 21:16 Sodium Chloride Flush Syringe 10 Ml IV 10 ml BID TAMMIE Administration Sodium Chloride 10 ml 07/04/19 04:24 Sodium Chloride Flush Syringe 10 Ml IV PRN PRN LINE FLUSH Sodium Hypochlorite 1 applic 07/10/19 14:00 07/23/19 21:16 Dakin's Half Strength TP 1 applicatio BID TAMMIE Administration Nutrition/Malnutrition Assess - Dietary Evaluation Nutrition/Malnutrition Findings: Nutrition Notes Start: 07/04/19 09:17 Freq: Status: Active Protocol: Document 07/23/19 16:03 [facility] (Rec: 07/23/19 16:09 [facility] [id number]) Nutrition Notes Initial or Follow up Reassessment Current Diagnosis Acute Kidney Injury,COPD, Decubitus(Pressure Ulcer), Diabetes,Hypertension Other Pertinent Diagnosis COVID-19 (+), pneu, seizures, schizophrenia, Buttock and R foot PU, Current Diet TF - Nepro at 45ml/hr Labs/Tests Reviewed Pertinent Medications Reviewed Height 5 ft 11 in Weight 97.2 kg [place] Body Weight (kg) 78.18 BMI 29.9 Weight change and time frame Wt change noted Subjective/Other Information RD spoke with RN via phone at 15:27. Pt tolerating TF at goal rate. Pt remains on vent support. Percent of energy/protein needs met: 100% energy 87% pro Burn Absent Trauma Absent #2 Nutrition Diagnosis Increased nutrient needs ( specify in comment below) Diagnosis Progress(for reassessment Continues documentation) #1 Nutrition Diagnosis Inadequate oral intake Diagnosis Progress(for reassessment Continues documentation) Is patient on ventilator? Yes Is Patient Ambulatory and/or Out of Bed No [phone] Additional Notes Use pro needs based on wt from previous assessment - current wt likely related to fluid retention Protein: 101-168g (1.2-2g/kg) Fluid: 1 ml/kcal or per MD Nutrition Intervention Nutrition Support: Nepro 1.8 at 45ml/hr Flush 200ml q4h Kcal 1,944 Protein (gm) 87 Fluid (mL) 785 Goal #1 TF tolerance Goal #2 TF to meet at least 75% of energy and protein needs Follow-Up By: 07/30/19 Additional Comments F/U: stable TF, vent status, wt
[2019-07-24] MEDS: DOCUSATE SODIUM 100 MG/10 ML ORAL LIQD PO SCH ×2 (09:41→22:07)
[2019-07-24] MEDS: ENOXAPARIN 40 MG/0.4 ML INJ SUB-Q SCH (09:41)
[2019-07-24] MEDS: FOLIC ACID 1 MG TAB PO SCH (09:41)
[2019-07-24] MEDS: FAMOTIDINE 20 MG TAB PO SCH ×2 (09:41→22:07)
[2019-07-24] MEDS: levETIRAcetam 500 MG/5 ML ORAL LIQD FEEDTUBE SCH ×2 (09:41→22:07)
[2019-07-24] MEDS: ASPIRIN 81 MG TAB CHEW PO SCH (09:41)
[2019-07-24] MEDS: SODIUM HYPOCHLORITE, DAKIN'S 1/2 STRENGTH (0.25%) 473 ML TOPICAL SOLN TP SCH ×2 (10:33→22:08)
--- NOTE | 2019-07-24 12:02 | Progress Note ---
Assessment and Plan S/p Cardiopulmonary arrest with ROSC Severe Sepsis with septic shock. Acute hypoxemic respiratory failure on MVS COVID-19 positive with elevated markers Bilateral pneumonia Elevated LFTs. Oropharyngeal dysphagia s/p PEG Acute kidney injury Decubitus ulcers-unstageable Moderate protein calorie malnutriton [id number] metabolic acidosis Leukocytosis -improving Thrombocytosis Microcytic anemia -Contienu enoxaparin for VTE prophylaxis- currently has severe thrombocytosis -On Fentanyl infusion, wean down to 1mcg to allow fro weaning trials -Will coordinate sedation interruption( RN) and SBT( RT) today to optimize chances of success with weaning trial -Continue all critical care as documented below -ABG, CXR prn - continue airborne, droplet and contact isolation for COVID-19 - continue wound care per WCT - sedation prn for target RASS 0 to -1 - continue to wean supplemental oxygen for target O2 sat's > 90% - Daily SAT's and SBT assessment as tolerated - VAP bundle addressed - continue lung protective strategies - continue bronchodilators with pulmonary hygiene per RT - wean per pulmonary driven protocols otherwise - accuchecks with glycemic control per SSI (While critically ill target blood glucose of 140-180 mg/dL; avoid hypoglycemia) - continue to avoid benzodiazepines, reduce the possibility of delirium - prn analgesia per CPOT score - Maintenance of sleep-wake cycle, avoid delirium - continue enteral nutritional support at goal rate as tolerated - VTE prophylaxis-SCDs -Stress ulcer prophylaxis- Famotidine - PT/OT/ROM exercises - continue mobility protocol, off loading and skin assessment for pressure ulcer prevention - Monitor hemodynamics closely -Wright catheter in this critically ill patient with unstageable sacral decubitus ulcer -PEG site care - continue other care per attending / other consultants - discharge planning ongoing concurrently .... Re-evaluate in am & prn CONDITION: CRITICAL PROGNOSIS: GUARDED CODE STATUS: DNAR Called his family to discuss goals of care, wants us to continue to treat aggressively at this time. The high probability of a clinically significant, sudden or life-threatening deterioration of the [respiratory & cardiovascular] system(s) required my full and direct attention, intervention and personal management. The aggregate critical care time was [31] minutes without overlap. Time includes spent on; [x] Data Review and interpretation [x] Patient assessment and monitoring of vital signs [x] Documentation [x] Medication orders and management Subjective Date of service: 07/24/19 Principal diagnosis: Bilateral pneumonia, severe sepsis with septic shock, encephalopathy Interval history: The patient is a 69-year-old male with CVA, hypertension, dementia, schizophrenia, alcohol use disorder was admitted to the emergency room after being brought in by EMS with progressive shortness of breath and unresponsiveness. He was noted to have agonal breathing and a faint pulse requiring CPR. Patient was intubated and brought to the hospital. It seems, patient was on home hospice. Currently, remains critically ill, intubated, on mechanical ventilation. His COVID test resulted positive. Patient is seen today for: s/p cardiopulmonary arrest with ROSC;Ac hypoxemic Resp failure on MVS; Severe sepsis with Shock; Bilateral Pneumonia; POSITIVE coronavirus-19 infection. Seen and examined at bedside; 24hour events reviewed; nursing and respiratory care staff consulted; no adverse overnight events reported to me; resting in bed. No reported fevers. On MVS and tolerating it well; on fentanyl at 2mcg Tolerating tube feedings, no diarrhea, Mental status changes persist, will spontaneously open eyes No fevers, Current setting AC-VC 14/500/30%/PEEP 6 Objective Vital Signs - 12hr 07/24/19 07/24/19 07/24/19 00:16 00:18 00:30 Temperature Pulse Rate 116 H 117 H 116 H Pulse Rate [ From Monitor] Respiratory 17 17 Rate Blood Pressure 120/64 120/64 121/66 O2 Sat by Pulse 100 100 100 Oximetry 07/24/19 07/24/19 07/24/19 00:46 01:00 01:16 Temperature Pulse Rate 116 H 116 H 116 H Pulse Rate [ From Monitor] Respiratory 16 16 15 Rate Blood Pressure 121/66 117/71 117/71 O2 Sat by Pulse 100 100 100 Oximetry 07/24/19 07/24/19 07/24/19 01:30 01:46 02:00 Temperature Pulse Rate 115 H 115 H 114 H Pulse Rate [ From Monitor] Respiratory 16 16 15 Rate Blood Pressure 121/67 121/67 121/67 O2 Sat by Pulse 100 100 100 Oximetry 07/24/19 07/24/19 07/24/19 02:16 02:30 02:46 Temperature Pulse Rate 115 H 113 H 113 H Pulse Rate [ From Monitor] Respiratory 16 17 15 Rate Blood Pressure 121/67 122/67 121/67 O2 Sat by Pulse 100 100 100 Oximetry 07/24/19 07/24/19 07/24/19 03:00 03:16 03:25 Temperature 98.6 F Pulse Rate 112 H 115 H Pulse Rate [ From Monitor] Respiratory 16 15 Rate Blood Pressure 119/65 122/67 O2 Sat by Pulse 100 100 Oximetry 07/24/19 07/24/19 07/24/19 03:30 03:46 04:00 Temperature Pulse Rate 115 H 119 H 122 H Pulse Rate [ 121 H From Monitor] Respiratory 16 18 16 Rate Blood Pressure 120/67 120/67 123/64 O2 Sat by Pulse 100 99 99 Oximetry 07/24/19 07/24/19 07/24/19 04:16 04:30 04:32 Temperature Pulse Rate 119 H 118 H 118 H Pulse Rate [ From Monitor] Respiratory 15 16 Rate Blood Pressure 120/67 116/62 116/62 O2 Sat by Pulse 99 99 100 Oximetry 07/24/19 07/24/19 07/24/19 04:46 05:00 05:16 Temperature Pulse Rate 114 H 115 H 115 H Pulse Rate [ From Monitor] Respiratory 17 17 17 Rate Blood Pressure 116/62 123/59 123/59 O2 Sat by Pulse 100 99 99 Oximetry 07/24/19 07/24/19 07/24/19 05:30 05:46 06:00 Temperature Pulse Rate 114 H 115 H 113 H Pulse Rate [ From Monitor] Respiratory 16 17 15 Rate Blood Pressure 117/62 117/62 112/67 O2 Sat by Pulse 98 100 100 Oximetry 07/24/19 07/24/19 07/24/19 06:16 06:30 06:46 Temperature Pulse Rate 115 H 115 H 113 H Pulse Rate [ From Monitor] Respiratory 16 16 16 Rate Blood Pressure 112/67 123/64 123/64 O2 Sat by Pulse 100 100 100 Oximetry 07/24/19 07/24/19 07/24/19 07:00 07:16 07:28 Temperature Pulse Rate 114 H 114 H 115 H Pulse Rate [ From Monitor] Respiratory 15 18 Rate Blood Pressure 120/69 123/64 123/64 O2 Sat by Pulse 100 100 100 Oximetry 07/24/19 07/24/19 07/24/19 07:30 07:46 08:00 Temperature 97.8 F Pulse Rate 114 H 114 H 114 H Pulse Rate [ 116 H From Monitor] Respiratory 16 15 16 Rate Blood Pressure 114/69 120/69 117/62 O2 Sat by Pulse 100 100 100 Oximetry 07/24/19 07/24/19 07/24/19 08:16 08:30 08:46 Temperature Pulse Rate 114 H 114 H 113 H Pulse Rate [ From Monitor] Respiratory 17 16 15 Rate Blood Pressure 114/69 115/63 115/63 O2 Sat by Pulse 100 100 100 Oximetry 07/24/19 07/24/19 07/24/19 09:00 09:16 09:30 Temperature Pulse Rate 112 H 115 H 114 H Pulse Rate [ From Monitor] Respiratory 14 16 16 Rate Blood Pressure 120/64 120/64 120/67 O2 Sat by Pulse 100 100 100 Oximetry 07/24/19 07/24/19 07/24/19 09:46 10:00 11:14 Temperature Pulse Rate 116 H 115 H 115 H Pulse Rate [ From Monitor] Respiratory 16 15 Rate Blood Pressure 120/67 124/63 124/63 O2 Sat by Pulse 100 100 100 Oximetry Constitutional: appears uncomfortable, other (eelderly and chronically ill looking AAM, normocep[krystina;ic with mildly increased respiratory effort at rest) Eyes: non-icteric ENT: oropharynx moist, other (ETT 24 cm RUTH) Neck: supple, no lymphadenopathy, no JVD Effort: very labored Ascultation: Bilateral: diminished breath sounds, rhonchi Percussion: Bilateral: not dull Cardiovascular: regular rate and rhythm Gastrointestinal: normoactive bowel sounds, soft, non-tender, non-distended, other (+ PEG tube with mild TF leakage) Integumentary: decubitus ulcer Extremities: no cyanosis, no edema, pink and warm, pulses normal Neurologic: unable to assess Psychiatric: other (Unable to assess re: AMS) CBC and BMP: 07/22/19 05:38 07/23/19 04:52 ABG, PT/INR, D-dimer: ABG ABG pH 7.364 pH Units (7.350-7.450) 07/24/19 04:40 ABG pCO2 51.1 mm Hg 07/24/19 04:40 ABG pO2 73.5 mm Hg (80.0-90.0) L 07/24/19 04:40 ABG O2 Saturation 94.5 % (95.0-99.0) L 07/24/19 04:40 PT/INR, D-dimer PT 16.0 Sec. (12.2-14.9) H 07/03/19 22:20 INR 1.26 (0.87-1.13) H 07/03/19 22:20 D-Dimer 1142.18 ng/mlDDU (0-234) H 07/08/19 00:45 Abnormal lab findings: Abnormal Labs 07/03/19 07/03/19 07/03/19 19:57 21:10 21:13 WBC RBC Hgb Hct MCV MCH MCHC RDW Plt Count Lymph % (Auto) [place] % (Auto) Lymph # [place] # Baso # Seg Neutrophils % Seg Neuts % (Manual) Lymphocytes % (Manual) Monocytes % (Manual) Nucleated RBC % Seg Neutrophils # Seg Neutrophils # Man Lymphocytes # (Manual) Monocytes # (Manual) PT INR D-Dimer ABG pH 7.238 L ABG pO2 210.8 H ABG HCO3 15.4 L ABG O2 Saturation 99.2 H ABG Base Excess -11.1 L ABG Hemoglobin 8.0 L Oxyhemoglobin Sodium 124 L Potassium Chloride 92.9 L Carbon Dioxide 10 L BUN 23 H Creatinine 0.5 L Glucose 118 H POC Glucose Lactic Acid Calcium 7.0 L Magnesium Iron TIBC Ferritin AST 70 H ALT 88 H Lactate Dehydrogenase Troponin T 0.032 H C-Reactive Protein Total Protein 5.0 L Albumin 1.8 L Cholesterol 47 L LDL Cholesterol Direct 25 L HDL Cholesterol 20 L Urine WBC (Auto) 12.0 H Vancomycin Trough Coronavirus (PCR) Crossmatch 07/03/19 07/03/19 07/03/19 22:20 22:20 22:20 WBC 30.5 H RBC 2.96 L Hgb 7.7 L Hct 23.9 L MCV 81 L MCH 26 L MCHC RDW 18.6 H Plt Count 459 H Lymph % (Auto) [place] % (Auto) Lymph # [place] # Baso # Seg Neutrophils % Seg Neuts % (Manual) 93.0 H Lymphocytes % (Manual) 0.5 L Monocytes % (Manual) Nucleated RBC % Seg Neutrophils # Seg Neutrophils # Man 28.4 H Lymphocytes # (Manual) 0.2 L Monocytes # (Manual) PT 16.0 H INR 1.26 H D-Dimer ABG pH ABG pO2 ABG HCO3 ABG O2 Saturation ABG Base Excess ABG Hemoglobin Oxyhemoglobin Sodium Potassium Chloride Carbon Dioxide BUN Creatinine Glucose POC Glucose Lactic Acid 6.90 H* Calcium Magnesium Iron TIBC Ferritin AST ALT Lactate Dehydrogenase Troponin T C-Reactive Protein Total Protein Albumin Cholesterol LDL Cholesterol Direct HDL Cholesterol Urine WBC (Auto) Vancomycin Trough Coronavirus (PCR) Crossmatch 07/03/19 07/04/19 07/04/19 23:58 05:15 07:05 WBC 17.1 H RBC 3.22 L Hgb 8.3 L Hct 25.4 L MCV 79 L MCH 26 L MCHC RDW 18.6 H Plt Count Lymph % (Auto) [place] % (Auto) Lymph # [place] # Baso # Seg Neutrophils % Seg Neuts % (Manual) 74.0 H Lymphocytes % (Manual) 0 L Monocytes % (Manual) Nucleated RBC % Seg Neutrophils # Seg Neutrophils # Man 12.7 H Lymphocytes # (Manual) 0.0 L Monocytes # (Manual) PT INR D-Dimer ABG pH 7.310 L ABG pO2 73.2 L ABG HCO3 17.8 L ABG O2 Saturation 93.8 L ABG Base Excess -7.7 L ABG Hemoglobin 9.6 L Oxyhemoglobin 92.3 L Sodium Potassium Chloride Carbon Dioxide BUN Creatinine Glucose POC Glucose Lactic Acid 7.10 H* Calcium Magnesium Iron TIBC Ferritin AST ALT Lactate Dehydrogenase Troponin T C-Reactive Protein Total Protein Albumin Cholesterol LDL Cholesterol Direct HDL Cholesterol Urine WBC (Auto) Vancomycin Trough Coronavirus (PCR) Crossmatch 07/04/19 07/04/19 07/04/19 07:05 07:05 07:05 WBC RBC Hgb Hct MCV MCH MCHC RDW Plt Count Lymph % (Auto) [place] % (Auto) Lymph # [place] # Baso # Seg Neutrophils % Seg Neuts % (Manual) Lymphocytes % (Manual) Monocytes % (Manual) Nucleated RBC % Seg Neutrophils # Seg Neutrophils # Man Lymphocytes # (Manual) Monocytes # (Manual) PT INR D-Dimer ABG pH ABG pO2 ABG HCO3 ABG O2 Saturation ABG Base Excess ABG Hemoglobin Oxyhemoglobin Sodium 120 L Potassium 5.1 H Chloride 90.0 L Carbon Dioxide 14 L BUN 26 H Creatinine 0.5 L Glucose POC Glucose Lactic Acid 3.30 H* Calcium 8.0 L Magnesium Iron 9 L TIBC 97 L Ferritin AST 73 H ALT 91 H Lactate Dehydrogenase Troponin T C-Reactive Protein Total Protein 5.5 L Albumin 2.0 L Cholesterol LDL Cholesterol Direct HDL Cholesterol Urine WBC (Auto) Vancomycin Trough Coronavirus (PCR) Crossmatch 07/04/19 07/04/19 07/04/19 09:39 09:39 09:39 WBC RBC Hgb Hct MCV MCH MCHC RDW Plt Count Lymph % (Auto) [place] % (Auto) Lymph # [place] # Baso # Seg Neutrophils % Seg Neuts % (Manual) Lymphocytes % (Manual) Monocytes % (Manual) Nucleated RBC % Seg Neutrophils # Seg Neutrophils # Man Lymphocytes # (Manual) Monocytes # (Manual) PT INR D-Dimer 1419.14 H ABG pH ABG pO2 ABG HCO3 ABG O2 Saturation ABG Base Excess ABG Hemoglobin Oxyhemoglobin Sodium Potassium Chloride Carbon Dioxide BUN Creatinine Glucose POC Glucose Lactic Acid Calcium Magnesium Iron TIBC Ferritin 1719.0 H AST ALT Lactate Dehydrogenase 234 H Troponin T C-Reactive Protein 15.50 H Total Protein Albumin Cholesterol LDL Cholesterol Direct HDL Cholesterol Urine WBC (Auto) Vancomycin Trough Coronavirus (PCR) Crossmatch 07/04/19 07/04/19 07/04/19 10:09 18:08 18:28 WBC RBC Hgb Hct MCV MCH MCHC RDW Plt Count Lymph % (Auto) [place] % (Auto) Lymph # [place] # Baso # Seg Neutrophils % Seg Neuts % (Manual) Lymphocytes % (Manual) Monocytes % (Manual) Nucleated RBC % Seg Neutrophils # Seg Neutrophils # Man Lymphocytes # (Manual) Monocytes # (Manual) PT INR D-Dimer ABG pH ABG pO2 ABG HCO3 ABG O2 Saturation ABG Base Excess ABG Hemoglobin Oxyhemoglobin Sodium 117 L* Potassium 5.6 H Chloride 90.3 L Carbon Dioxide 16 L BUN 28 H Creatinine 0.5 L Glucose 58 L POC Glucose 65 L Lactic Acid Calcium 8.2 L Magnesium Iron TIBC Ferritin AST ALT Lactate Dehydrogenase Troponin T C-Reactive Protein Total Protein Albumin Cholesterol LDL Cholesterol Direct HDL Cholesterol Urine WBC (Auto) Vancomycin Trough Coronavirus (PCR) Positive A Crossmatch 07/04/19 07/04/19 07/04/19 23:45 Unknown Unknown WBC RBC Hgb Hct MCV MCH MCHC RDW Plt Count Lymph % (Auto) [place] % (Auto) Lymph # [place] # Baso # Seg Neutrophils % Seg Neuts % (Manual) Lymphocytes % (Manual) Monocytes % (Manual) Nucleated RBC % Seg Neutrophils # Seg Neutrophils # Man Lymphocytes # (Manual) Monocytes # (Manual) PT INR D-Dimer 759.77 H ABG pH ABG pO2 ABG HCO3 ABG O2 Saturation ABG Base Excess ABG Hemoglobin Oxyhemoglobin Sodium 122 L Potassium Chloride 93.0 L Carbon Dioxide 19 L BUN 27 H Creatinine 0.5 L Glucose POC Glucose Lactic Acid Calcium 8.3 L Magnesium Iron TIBC Ferritin 1301.0 H AST ALT Lactate Dehydrogenase Troponin T C-Reactive Protein Total Protein Albumin Cholesterol LDL Cholesterol Direct HDL Cholesterol Urine WBC (Auto) Vancomycin Trough Coronavirus (PCR) Crossmatch 07/04/19 07/05/19 07/05/19 Unknown 03:20 04:00 WBC RBC Hgb Hct MCV MCH MCHC RDW Plt Count Lymph % (Auto) [place] % (Auto) Lymph # [place] # Baso # Seg Neutrophils % Seg Neuts % (Manual) Lymphocytes % (Manual) Monocytes % (Manual) Nucleated RBC % Seg Neutrophils # Seg Neutrophils # Man Lymphocytes # (Manual) Monocytes # (Manual) PT INR D-Dimer ABG pH ABG pO2 60.6 L ABG HCO3 ABG O2 Saturation 93.5 L ABG Base Excess -2.4 L ABG Hemoglobin 6.9 L Oxyhemoglobin 92.0 L Sodium 125 L Potassium Chloride 92.6 L Carbon Dioxide 19 L BUN 24 H Creatinine 0.6 L Glucose POC Glucose Lactic Acid Calcium 8.2 L Magnesium 1.40 L Iron TIBC Ferritin AST ALT Lactate Dehydrogenase 242 H Troponin T C-Reactive Protein 16.70 H Total Protein Albumin Cholesterol LDL Cholesterol Direct HDL Cholesterol Urine WBC (Auto) Vancomycin Trough Coronavirus (PCR) Crossmatch 07/05/19 07/05/19 07/05/19 10:11 16:15 17:54 WBC 46.4 H* RBC 2.77 L Hgb 7.2 L Hct 21.9 L MCV 79 L MCH 26 L MCHC RDW 19.0 H Plt Count Lymph % (Auto) [place] % (Auto) Lymph # [place] # Baso # Seg Neutrophils % Seg Neuts % (Manual) 82.0 H Lymphocytes % (Manual) 1.0 L Monocytes % (Manual) Nucleated RBC % Seg Neutrophils # Seg Neutrophils # Man 38.0 H Lymphocytes # (Manual) 0.5 L Monocytes # (Manual) PT INR D-Dimer ABG pH ABG pO2 ABG HCO3 ABG O2 Saturation ABG Base Excess ABG Hemoglobin Oxyhemoglobin Sodium Potassium Chloride Carbon Dioxide BUN Creatinine Glucose POC Glucose 69 L Lactic Acid Calcium Magnesium Iron TIBC Ferritin AST ALT Lactate Dehydrogenase Troponin T C-Reactive Protein Total Protein Albumin Cholesterol LDL Cholesterol Direct HDL Cholesterol Urine WBC (Auto) Vancomycin Trough 23.2 H Coronavirus (PCR) Crossmatch 07/05/19 07/06/19 07/06/19 19:58 00:27 00:27 WBC RBC Hgb Hct MCV MCH MCHC RDW Plt Count Lymph % (Auto) [place] % (Auto) Lymph # [place] # Baso # Seg Neutrophils % Seg Neuts % (Manual) Lymphocytes % (Manual) Monocytes % (Manual) Nucleated RBC % Seg Neutrophils # Seg Neutrophils # Man Lymphocytes # (Manual) Monocytes # (Manual) PT INR D-Dimer 1333.22 H ABG pH ABG pO2 ABG HCO3 ABG O2 Saturation ABG Base Excess ABG Hemoglobin Oxyhemoglobin Sodium 127 L Potassium Chloride Carbon Dioxide BUN Creatinine Glucose POC Glucose Lactic Acid Calcium Magnesium Iron TIBC Ferritin 977.1 H AST ALT Lactate Dehydrogenase Troponin T C-Reactive Protein Total Protein Albumin Cholesterol LDL Cholesterol Direct HDL Cholesterol Urine WBC (Auto) Vancomycin Trough Coronavirus (PCR) Crossmatch 07/06/19 07/06/19 07/06/19 00:27 02:00 02:56 WBC RBC Hgb Hct MCV MCH MCHC RDW Plt Count Lymph % (Auto) [place] % (Auto) Lymph # [place] # Baso # Seg Neutrophils % Seg Neuts % (Manual) Lymphocytes % (Manual) Monocytes % (Manual) Nucleated RBC % Seg Neutrophils # Seg Neutrophils # Man Lymphocytes # (Manual) Monocytes # (Manual) PT INR D-Dimer ABG pH ABG pO2 70.3 L ABG HCO3 ABG O2 Saturation 94.8 L ABG Base Excess ABG Hemoglobin 8.0 L Oxyhemoglobin 93.2 L Sodium Potassium Chloride Carbon Dioxide BUN Creatinine Glucose POC Glucose 117 H Lactic Acid Calcium Magnesium Iron TIBC Ferritin AST ALT Lactate Dehydrogenase 236 H Troponin T C-Reactive Protein 22.90 H Total Protein Albumin Cholesterol LDL Cholesterol Direct HDL Cholesterol Urine WBC (Auto) Vancomycin Trough Coronavirus (PCR) Crossmatch 07/06/19 07/06/19 07/06/19 03:49 03:49 07:40 WBC 38.8 H RBC 2.51 L Hgb 6.7 L Hct 19.9 L* MCV 79 L MCH 27 L MCHC RDW 19.2 H Plt Count Lymph % (Auto) [place] % (Auto) Lymph # [place] # Baso # Seg Neutrophils % Seg Neuts % (Manual) 90.5 H Lymphocytes % (Manual) 1.0 L Monocytes % (Manual) Nucleated RBC % Seg Neutrophils # Seg Neutrophils # Man 35.1 H Lymphocytes # (Manual) 0.4 L Monocytes # (Manual) PT INR D-Dimer ABG pH ABG pO2 ABG HCO3 ABG O2 Saturation ABG Base Excess ABG Hemoglobin Oxyhemoglobin Sodium 131 L Potassium Chloride 96.9 L Carbon Dioxide 18 L BUN 23 H Creatinine 0.5 L Glucose POC Glucose Lactic Acid Calcium 8.0 L Magnesium Iron TIBC Ferritin AST ALT Lactate Dehydrogenase Troponin T C-Reactive Protein Total Protein Albumin Cholesterol LDL Cholesterol Direct HDL Cholesterol Urine WBC (Auto) Vancomycin Trough Coronavirus (PCR) Crossmatch See Detail 07/06/19 07/06/19 07/06/19 12:38 14:39 20:00 WBC RBC Hgb Hct MCV MCH MCHC RDW Plt Count Lymph % (Auto) [place] % (Auto) Lymph # [place] # Baso # Seg Neutrophils % Seg Neuts % (Manual) Lymphocytes % (Manual) Monocytes % (Manual) Nucleated RBC % Seg Neutrophils # Seg Neutrophils # Man Lymphocytes # (Manual) Monocytes # (Manual) PT INR D-Dimer ABG pH ABG pO2 ABG HCO3 ABG O2 Saturation ABG Base Excess ABG Hemoglobin Oxyhemoglobin Sodium Potassium Chloride Carbon Dioxide BUN Creatinine Glucose POC Glucose 112 H 111 H 140 H Lactic Acid Calcium Magnesium Iron TIBC Ferritin AST ALT Lactate Dehydrogenase Troponin T C-Reactive Protein Total Protein Albumin Cholesterol LDL Cholesterol Direct HDL Cholesterol Urine WBC (Auto) Vancomycin Trough Coronavirus (PCR) Crossmatch 07/06/19 07/06/19 07/07/19 22:43 22:56 02:20 WBC RBC Hgb 7.9 L Hct 23.1 L MCV MCH MCHC RDW Plt Count Lymph % (Auto) [place] % (Auto) Lymph # [place] # Baso # Seg Neutrophils % Seg Neuts % (Manual) Lymphocytes % (Manual) Monocytes % (Manual) Nucleated RBC % Seg Neutrophils # Seg Neutrophils # Man Lymphocytes # (Manual) Monocytes # (Manual) PT INR D-Dimer ABG pH ABG pO2 ABG HCO3 ABG O2 Saturation ABG Base Excess ABG Hemoglobin Oxyhemoglobin Sodium Potassium Chloride Carbon Dioxide BUN Creatinine Glucose POC Glucose 122 H 149 H Lactic Acid Calcium Magnesium Iron TIBC Ferritin AST ALT Lactate Dehydrogenase Troponin T C-Reactive Protein Total Protein Albumin Cholesterol LDL Cholesterol Direct HDL Cholesterol Urine WBC (Auto) Vancomycin Trough Coronavirus (PCR) Crossmatch 07/07/19 07/07/19 07/07/19 04:35 05:27 05:34 WBC 23.1 H RBC 3.00 L Hgb 8.1 L Hct 24.2 L MCV 81 L MCH 27 L MCHC RDW 20.6 H Plt Count Lymph % (Auto) [place] % (Auto) Lymph # [place] # Baso # Seg Neutrophils % Seg Neuts % (Manual) 90.0 H Lymphocytes % (Manual) 2.0 L Monocytes % (Manual) Nucleated RBC % Seg Neutrophils # Seg Neutrophils # Man 20.8 H Lymphocytes # (Manual) 0.5 L Monocytes # (Manual) PT INR D-Dimer ABG pH ABG pO2 65.8 L ABG HCO3 ABG O2 Saturation 92.2 L ABG Base Excess ABG Hemoglobin 8.3 L Oxyhemoglobin 90.6 L Sodium Potassium Chloride Carbon Dioxide BUN Creatinine Glucose POC Glucose 132 H Lactic Acid Calcium Magnesium Iron TIBC Ferritin AST ALT Lactate Dehydrogenase Troponin T C-Reactive Protein Total Protein Albumin Cholesterol LDL Cholesterol Direct HDL Cholesterol Urine WBC (Auto) Vancomycin Trough Coronavirus (PCR) Crossmatch 07/07/19 07/07/19 07/07/19 05:34 11:50 15:58 WBC RBC Hgb 8.1 L Hct 24.2 L MCV MCH MCHC RDW Plt Count Lymph % (Auto) [place] % (Auto) Lymph # [place] # Baso # Seg Neutrophils % Seg Neuts % (Manual) Lymphocytes % (Manual) Monocytes % (Manual) Nucleated RBC % Seg Neutrophils # Seg Neutrophils # Man Lymphocytes # (Manual) Monocytes # (Manual) PT INR D-Dimer ABG pH ABG pO2 ABG HCO3 ABG O2 Saturation ABG Base Excess ABG Hemoglobin Oxyhemoglobin Sodium 135 L Potassium 3.3 L Chloride Carbon Dioxide 20 L BUN 27 H Creatinine 0.6 L Glucose 121 H POC Glucose 123 H Lactic Acid Calcium 8.0 L Magnesium Iron TIBC Ferritin AST ALT Lactate Dehydrogenase Troponin T C-Reactive Protein Total Protein Albumin Cholesterol LDL Cholesterol Direct HDL Cholesterol Urine WBC (Auto) Vancomycin Trough Coronavirus (PCR) Crossmatch 07/07/19 07/07/19 07/07/19 17:42 22:00 23:53 WBC RBC Hgb 8.0 L Hct 23.4 L MCV MCH MCHC RDW Plt Count Lymph % (Auto) [place] % (Auto) Lymph # [place] # Baso # Seg Neutrophils % Seg Neuts % (Manual) Lymphocytes % (Manual) Monocytes % (Manual) Nucleated RBC % Seg Neutrophils # Seg Neutrophils # Man Lymphocytes # (Manual) Monocytes # (Manual) PT INR D-Dimer ABG pH ABG pO2 ABG HCO3 ABG O2 Saturation ABG Base Excess ABG Hemoglobin Oxyhemoglobin Sodium Potassium Chloride Carbon Dioxide BUN Creatinine Glucose POC Glucose 107 H 117 H Lactic Acid Calcium Magnesium Iron TIBC Ferritin AST ALT Lactate Dehydrogenase Troponin T C-Reactive Protein Total Protein Albumin Cholesterol LDL Cholesterol Direct HDL Cholesterol Urine WBC (Auto) Vancomycin Trough Coronavirus (PCR) Crossmatch 07/08/19 07/08/19 07/08/19 00:45 00:45 00:45 WBC RBC Hgb Hct MCV MCH MCHC RDW Plt Count Lymph % (Auto) [place] % (Auto) Lymph # [place] # Baso # Seg Neutrophils % Seg Neuts % (Manual) Lymphocytes % (Manual) Monocytes % (Manual) Nucleated RBC % Seg Neutrophils # Seg Neutrophils # Man Lymphocytes # (Manual) Monocytes # (Manual) PT INR D-Dimer 1142.18 H ABG pH ABG pO2 ABG HCO3 ABG O2 Saturation ABG Base Excess ABG Hemoglobin Oxyhemoglobin Sodium Potassium Chloride Carbon Dioxide BUN Creatinine Glucose POC Glucose Lactic Acid Calcium Magnesium Iron TIBC Ferritin 839.0 H AST ALT Lactate Dehydrogenase 253 H Troponin T C-Reactive Protein 18.90 H Total Protein Albumin Cholesterol LDL Cholesterol Direct HDL Cholesterol Urine WBC (Auto) Vancomycin Trough Coronavirus (PCR) Crossmatch 07/08/19 07/08/19 07/08/19 04:30 05:11 12:02 WBC RBC Hgb Hct MCV MCH MCHC RDW Plt Count Lymph % (Auto) [place] % (Auto) Lymph # [place] # Baso # Seg Neutrophils % Seg Neuts % (Manual) Lymphocytes % (Manual) Monocytes % (Manual) Nucleated RBC % Seg Neutrophils # Seg Neutrophils # Man Lymphocytes # (Manual) Monocytes # (Manual) PT INR D-Dimer ABG pH ABG pO2 66.0 L ABG HCO3 ABG O2 Saturation 92.3 L ABG Base Excess ABG Hemoglobin 7.7 L Oxyhemoglobin 90.7 L Sodium Potassium Chloride Carbon Dioxide BUN Creatinine Glucose POC Glucose 108 H 153 H Lactic Acid Calcium Magnesium Iron TIBC Ferritin AST ALT Lactate Dehydrogenase Troponin T C-Reactive Protein Total Protein Albumin Cholesterol LDL Cholesterol Direct HDL Cholesterol Urine WBC (Auto) Vancomycin Trough Coronavirus (PCR) Crossmatch 07/08/19 07/08/19 07/08/19 16:15 18:22 23:35 WBC RBC Hgb Hct MCV MCH MCHC RDW Plt Count Lymph % (Auto) [place] % (Auto) Lymph # [place] # Baso # Seg Neutrophils % Seg Neuts % (Manual) Lymphocytes % (Manual) Monocytes % (Manual) Nucleated RBC % Seg Neutrophils # Seg Neutrophils # Man Lymphocytes # (Manual) Monocytes # (Manual) PT INR D-Dimer ABG pH ABG pO2 ABG HCO3 ABG O2 Saturation ABG Base Excess ABG Hemoglobin Oxyhemoglobin Sodium 134 L Potassium 3.3 L Chloride Carbon Dioxide 21 L BUN 27 H Creatinine 0.6 L Glucose 146 H POC Glucose 134 H 133 H Lactic Acid Calcium Magnesium Iron TIBC Ferritin AST ALT Lactate Dehydrogenase Troponin T C-Reactive Protein Total Protein Albumin Cholesterol LDL Cholesterol Direct HDL Cholesterol Urine WBC (Auto) Vancomycin Trough Coronavirus (PCR) Crossmatch 07/09/19 07/09/19 07/09/19 04:30 04:30 05:00 WBC 18.9 H RBC 2.77 L Hgb 7.4 L Hct 22.8 L MCV 82 L MCH 27 L MCHC RDW 20.9 H Plt Count 130 L Lymph % (Auto) [place] % (Auto) Lymph # [place] # Baso # Seg Neutrophils % Seg Neuts % (Manual) 84.0 H Lymphocytes % (Manual) 0 L Monocytes % (Manual) Nucleated RBC % Seg Neutrophils # Seg Neutrophils # Man 15.9 H Lymphocytes # (Manual) 0.0 L Monocytes # (Manual) PT INR D-Dimer ABG pH ABG pO2 ABG HCO3 ABG O2 Saturation ABG Base Excess ABG Hemoglobin Oxyhemoglobin Sodium Potassium 3.1 L Chloride Carbon Dioxide BUN 26 H Creatinine 0.5 L Glucose 125 H POC Glucose 155 H Lactic Acid Calcium Magnesium Iron TIBC Ferritin AST ALT Lactate Dehydrogenase Troponin T C-Reactive Protein Total Protein Albumin Cholesterol LDL Cholesterol Direct HDL Cholesterol Urine WBC (Auto) Vancomycin Trough Coronavirus (PCR) Crossmatch 07/09/19 07/09/19 07/09/19 05:55 12:22 17:50 WBC RBC Hgb Hct MCV MCH MCHC RDW Plt Count Lymph % (Auto) [place] % (Auto) Lymph # [place] # Baso # Seg Neutrophils % Seg Neuts % (Manual) Lymphocytes % (Manual) Monocytes % (Manual) Nucleated RBC % Seg Neutrophils # Seg Neutrophils # Man Lymphocytes # (Manual) Monocytes # (Manual) PT INR D-Dimer ABG pH ABG pO2 62.8 L ABG HCO3 ABG O2 Saturation ABG Base Excess ABG Hemoglobin 6.1 L Oxyhemoglobin 93.9 L Sodium Potassium Chloride Carbon Dioxide BUN Creatinine Glucose POC Glucose 115 H 133 H Lactic Acid Calcium Magnesium Iron TIBC Ferritin AST ALT Lactate Dehydrogenase Troponin T C-Reactive Protein Total Protein Albumin Cholesterol LDL Cholesterol Direct HDL Cholesterol Urine WBC (Auto) Vancomycin Trough Coronavirus (PCR) Crossmatch 07/10/19 07/10/19 07/10/19 00:38 04:00 04:00 WBC RBC Hgb Hct MCV MCH MCHC RDW Plt Count Lymph % (Auto) [place] % (Auto) Lymph # [place] # Baso # Seg Neutrophils % Seg Neuts % (Manual) Lymphocytes % (Manual) Monocytes % (Manual) Nucleated RBC % Seg Neutrophils # Seg Neutrophils # Man Lymphocytes # (Manual) Monocytes # (Manual) PT INR D-Dimer ABG pH ABG pO2 ABG HCO3 ABG O2 Saturation ABG Base Excess ABG Hemoglobin Oxyhemoglobin Sodium Potassium Chloride 107.9 H Carbon Dioxide BUN 26 H Creatinine 0.4 L Glucose 137 H POC Glucose 122 H Lactic Acid Calcium Magnesium 1.50 L Iron TIBC Ferritin AST ALT Lactate Dehydrogenase 277 H Troponin T C-Reactive Protein 15.10 H Total Protein Albumin Cholesterol LDL Cholesterol Direct HDL Cholesterol Urine WBC (Auto) Vancomycin Trough Coronavirus (PCR) Crossmatch 07/10/19 07/10/19 07/10/19 04:07 05:21 17:25 WBC RBC Hgb Hct MCV MCH MCHC RDW Plt Count Lymph % (Auto) [place] % (Auto) Lymph # [place] # Baso # Seg Neutrophils % Seg Neuts % (Manual) Lymphocytes % (Manual) Monocytes % (Manual) Nucleated RBC % Seg Neutrophils # Seg Neutrophils # Man Lymphocytes # (Manual) Monocytes # (Manual) PT INR D-Dimer ABG pH ABG pO2 65.6 L ABG HCO3 26.3 H ABG O2 Saturation ABG Base Excess ABG Hemoglobin 6.7 L Oxyhemoglobin Sodium Potassium Chloride Carbon Dioxide BUN Creatinine Glucose POC Glucose 144 H 113 H Lactic Acid Calcium Magnesium Iron TIBC Ferritin AST ALT Lactate Dehydrogenase Troponin T C-Reactive Protein Total Protein Albumin Cholesterol LDL Cholesterol Direct HDL Cholesterol Urine WBC (Auto) Vancomycin Trough Coronavirus (PCR) Crossmatch 07/11/19 07/11/19 07/11/19 00:07 05:14 05:25 WBC RBC Hgb Hct MCV MCH MCHC RDW Plt Count Lymph % (Auto) [place] % (Auto) Lymph # [place] # Baso # Seg Neutrophils % Seg Neuts % (Manual) Lymphocytes % (Manual) Monocytes % (Manual) Nucleated RBC % Seg Neutrophils # Seg Neutrophils # Man Lymphocytes # (Manual) Monocytes # (Manual) PT INR D-Dimer ABG pH ABG pO2 ABG HCO3 ABG O2 Saturation ABG Base Excess ABG Hemoglobin 5.8 L Oxyhemoglobin Sodium Potassium Chloride 108.0 H Carbon Dioxide BUN 26 H Creatinine 0.4 L Glucose 110 H POC Glucose 121 H Lactic Acid Calcium Magnesium Iron TIBC Ferritin AST ALT Lactate Dehydrogenase Troponin T C-Reactive Protein Total Protein Albumin Cholesterol LDL Cholesterol Direct HDL Cholesterol Urine WBC (Auto) Vancomycin Trough Coronavirus (PCR) Crossmatch 07/11/19 07/11/19 07/11/19 12:27 18:00 23:42 WBC RBC Hgb Hct MCV MCH MCHC RDW Plt Count Lymph % (Auto) [place] % (Auto) Lymph # [place] # Baso # Seg Neutrophils % Seg Neuts % (Manual) Lymphocytes % (Manual) Monocytes % (Manual) Nucleated RBC % Seg Neutrophils # Seg Neutrophils # Man Lymphocytes # (Manual) Monocytes # (Manual) PT INR D-Dimer ABG pH ABG pO2 ABG HCO3 ABG O2 Saturation ABG Base Excess ABG Hemoglobin Oxyhemoglobin Sodium Potassium Chloride Carbon Dioxide BUN Creatinine Glucose POC Glucose 158 H 141 H 142 H Lactic Acid Calcium Magnesium Iron TIBC Ferritin AST ALT Lactate Dehydrogenase Troponin T C-Reactive Protein Total Protein Albumin Cholesterol LDL Cholesterol Direct HDL Cholesterol Urine WBC (Auto) Vancomycin Trough Coronavirus (PCR) Crossmatch 07/12/19 07/12/19 07/12/19 04:46 04:46 05:23 WBC 23.6 H RBC 2.51 L Hgb 6.7 L Hct 20.8 L MCV 83 L MCH 27 L MCHC RDW 20.3 H Plt Count Lymph % (Auto) [place] % (Auto) Lymph # [place] # Baso # Seg Neutrophils % Seg Neuts % (Manual) 94.0 H Lymphocytes % (Manual) 4.0 L Monocytes % (Manual) Nucleated RBC % Seg Neutrophils # Seg Neutrophils # Man 22.2 H Lymphocytes # (Manual) 0.9 L Monocytes # (Manual) PT INR D-Dimer ABG pH ABG pO2 ABG HCO3 ABG O2 Saturation ABG Base Excess ABG Hemoglobin Oxyhemoglobin Sodium Potassium Chloride 107.1 H Carbon Dioxide BUN 25 H Creatinine 0.4 L Glucose 122 H POC Glucose 118 H Lactic Acid Calcium Magnesium Iron TIBC Ferritin AST ALT Lactate Dehydrogenase Troponin T C-Reactive Protein Total Protein Albumin Cholesterol LDL Cholesterol Direct HDL Cholesterol Urine WBC (Auto) Vancomycin Trough Coronavirus (PCR) Crossmatch 07/12/19 07/12/19 07/12/19 08:49 11:36 18:15 WBC RBC Hgb Hct MCV MCH MCHC RDW Plt Count Lymph % (Auto) [place] % (Auto) Lymph # [place] # Baso # Seg Neutrophils % Seg Neuts % (Manual) Lymphocytes % (Manual) Monocytes % (Manual) Nucleated RBC % Seg Neutrophils # Seg Neutrophils # Man Lymphocytes # (Manual) Monocytes # (Manual) PT INR D-Dimer ABG pH ABG pO2 ABG HCO3 ABG O2 Saturation ABG Base Excess ABG Hemoglobin Oxyhemoglobin Sodium Potassium Chloride Carbon Dioxide BUN Creatinine Glucose POC Glucose 124 H 110 H Lactic Acid Calcium Magnesium Iron TIBC Ferritin AST ALT Lactate Dehydrogenase Troponin T C-Reactive Protein Total Protein Albumin Cholesterol LDL Cholesterol Direct HDL Cholesterol Urine WBC (Auto) Vancomycin Trough Coronavirus (PCR) Crossmatch See Detail 07/12/19 07/13/19 07/13/19 23:16 05:26 06:50 WBC 23.9 H RBC 2.58 L Hgb 6.9 L Hct 21.5 L MCV 83 L MCH 27 L MCHC RDW 19.0 H Plt Count Lymph % (Auto) [place] % (Auto) Lymph # [place] # Baso # Seg Neutrophils % Seg Neuts % (Manual) 96.0 H Lymphocytes % (Manual) 3.0 L Monocytes % (Manual) Nucleated RBC % Seg Neutrophils # Seg Neutrophils # Man 22.9 H Lymphocytes # (Manual) 0.7 L Monocytes # (Manual) PT INR D-Dimer ABG pH ABG pO2 ABG HCO3 ABG O2 Saturation ABG Base Excess ABG Hemoglobin Oxyhemoglobin Sodium Potassium Chloride Carbon Dioxide BUN Creatinine Glucose POC Glucose 108 H 126 H Lactic Acid Calcium Magnesium Iron TIBC Ferritin AST ALT Lactate Dehydrogenase Troponin T C-Reactive Protein Total Protein Albumin Cholesterol LDL Cholesterol Direct HDL Cholesterol Urine WBC (Auto) Vancomycin Trough Coronavirus (PCR) Crossmatch 07/13/19 07/13/19 07/13/19 06:50 12:38 18:05 WBC RBC Hgb Hct MCV MCH MCHC RDW Plt Count Lymph % (Auto) [place] % (Auto) Lymph # [place] # Baso # Seg Neutrophils % Seg Neuts % (Manual) Lymphocytes % (Manual) Monocytes % (Manual) Nucleated RBC % Seg Neutrophils # Seg Neutrophils # Man Lymphocytes # (Manual) Monocytes # (Manual) PT INR D-Dimer ABG pH ABG pO2 ABG HCO3 ABG O2 Saturation ABG Base Excess ABG Hemoglobin Oxyhemoglobin Sodium Potassium Chloride Carbon Dioxide BUN 33 H Creatinine 0.5 L Glucose 136 H POC Glucose 164 H 145 H Lactic Acid Calcium Magnesium Iron TIBC Ferritin AST ALT Lactate Dehydrogenase Troponin T C-Reactive Protein Total Protein Albumin Cholesterol LDL Cholesterol Direct HDL Cholesterol Urine WBC (Auto) Vancomycin Trough Coronavirus (PCR) Crossmatch 07/13/19 07/14/19 07/14/19 18:30 00:21 04:40 WBC 22.9 H RBC 2.45 L Hgb 6.6 L Hct 21.1 L MCV MCH 27 L MCHC 31 L RDW 19.2 H Plt Count Lymph % (Auto) [place] % (Auto) Lymph # [place] # Baso # Seg Neutrophils % Seg Neuts % (Manual) 91.0 H Lymphocytes % (Manual) 7.0 L Monocytes % (Manual) Nucleated RBC % Seg Neutrophils # Seg Neutrophils # Man 20.8 H Lymphocytes # (Manual) Monocytes # (Manual) PT INR D-Dimer ABG pH ABG pO2 58.1 L ABG HCO3 ABG O2 Saturation 88.7 L ABG Base Excess ABG Hemoglobin 7.8 L Oxyhemoglobin 86.8 L Sodium Potassium Chloride Carbon Dioxide BUN Creatinine Glucose POC Glucose 118 H Lactic Acid Calcium Magnesium Iron TIBC Ferritin AST ALT Lactate Dehydrogenase Troponin T C-Reactive Protein Total Protein Albumin Cholesterol LDL Cholesterol Direct HDL Cholesterol Urine WBC (Auto) Vancomycin Trough Coronavirus (PCR) Crossmatch 07/14/19 07/14/19 07/14/19 04:40 05:38 05:45 WBC RBC Hgb Hct MCV MCH MCHC RDW Plt Count Lymph % (Auto) [place] % (Auto) Lymph # [place] # Baso # Seg Neutrophils % Seg Neuts % (Manual) Lymphocytes % (Manual) Monocytes % (Manual) Nucleated RBC % Seg Neutrophils # Seg Neutrophils # Man Lymphocytes # (Manual) Monocytes # (Manual) PT INR D-Dimer ABG pH 7.230 L ABG pO2 72.1 L ABG HCO3 ABG O2 Saturation 89.3 L ABG Base Excess -2.7 L ABG Hemoglobin 6.7 L Oxyhemoglobin 87.7 L Sodium Potassium Chloride 107.4 H Carbon Dioxide BUN 45 H Creatinine Glucose 101 H POC Glucose 154 H Lactic Acid Calcium Magnesium Iron TIBC Ferritin AST ALT Lactate Dehydrogenase Troponin T C-Reactive Protein Total Protein Albumin Cholesterol LDL Cholesterol Direct HDL Cholesterol Urine WBC (Auto) Vancomycin Trough Coronavirus (PCR) Crossmatch 07/14/19 07/14/19 07/14/19 12:25 18:20 19:01 WBC 22.4 H RBC 2.70 L Hgb 7.5 L Hct 23.3 L MCV MCH MCHC RDW 19.5 H Plt Count Lymph % (Auto) [place] % (Auto) Lymph # [place] # Baso # Seg Neutrophils % Seg Neuts % (Manual) Lymphocytes % (Manual) Monocytes % (Manual) Nucleated RBC % Seg Neutrophils # Seg Neutrophils # Man Lymphocytes # (Manual) Monocytes # (Manual) PT INR D-Dimer ABG pH ABG pO2 ABG HCO3 ABG O2 Saturation ABG Base Excess ABG Hemoglobin Oxyhemoglobin Sodium Potassium Chloride Carbon Dioxide BUN Creatinine Glucose POC Glucose 136 H 131 H Lactic Acid Calcium Magnesium Iron TIBC Ferritin AST ALT Lactate Dehydrogenase Troponin T C-Reactive Protein Total Protein Albumin Cholesterol LDL Cholesterol Direct HDL Cholesterol Urine WBC (Auto) Vancomycin Trough Coronavirus (PCR) Crossmatch 07/15/19 07/15/19 07/15/19 00:17 04:35 05:18 WBC 20.6 H RBC 2.41 L Hgb 6.8 L Hct 20.7 L MCV MCH MCHC RDW 20.2 H Plt Count Lymph % (Auto) [place] % (Auto) Lymph # [place] # Baso # Seg Neutrophils % Seg Neuts % (Manual) 92.0 H Lymphocytes % (Manual) 5.0 L Monocytes % (Manual) Nucleated RBC % Seg Neutrophils # Seg Neutrophils # Man 19.0 H Lymphocytes # (Manual) 1.0 L Monocytes # (Manual) PT INR D-Dimer ABG pH 7.342 L ABG pO2 ABG HCO3 ABG O2 Saturation ABG Base Excess -3.1 L ABG Hemoglobin 7.2 L Oxyhemoglobin 94.9 L Sodium Potassium Chloride Carbon Dioxide BUN Creatinine Glucose POC Glucose 116 H Lactic Acid Calcium Magnesium Iron TIBC Ferritin AST ALT Lactate Dehydrogenase Troponin T C-Reactive Protein Total Protein Albumin Cholesterol LDL Cholesterol Direct HDL Cholesterol Urine WBC (Auto) Vancomycin Trough Coronavirus (PCR) Crossmatch 07/15/19 07/15/19 07/15/19 05:18 05:57 11:28 WBC RBC Hgb Hct MCV MCH MCHC RDW Plt Count Lymph % (Auto) [place] % (Auto) Lymph # [place] # Baso # Seg Neutrophils % Seg Neuts % (Manual) Lymphocytes % (Manual) Monocytes % (Manual) Nucleated RBC % Seg Neutrophils # Seg Neutrophils # Man Lymphocytes # (Manual) Monocytes # (Manual) PT INR D-Dimer ABG pH ABG pO2 ABG HCO3 ABG O2 Saturation ABG Base Excess ABG Hemoglobin Oxyhemoglobin Sodium Potassium Chloride Carbon Dioxide 20 L BUN 59 H Creatinine Glucose 140 H POC Glucose 139 H 117 H Lactic Acid Calcium Magnesium Iron TIBC Ferritin AST ALT Lactate Dehydrogenase Troponin T C-Reactive Protein Total Protein Albumin Cholesterol LDL Cholesterol Direct HDL Cholesterol Urine WBC (Auto) Vancomycin Trough Coronavirus (PCR) Crossmatch 07/15/19 07/16/19 07/16/19 18:13 00:06 03:43 WBC RBC Hgb Hct MCV MCH MCHC RDW Plt Count Lymph % (Auto) [place] % (Auto) Lymph # [place] # Baso # Seg Neutrophils % Seg Neuts % (Manual) Lymphocytes % (Manual) Monocytes % (Manual) Nucleated RBC % Seg Neutrophils # Seg Neutrophils # Man Lymphocytes # (Manual) Monocytes # (Manual) PT INR D-Dimer ABG pH 7.344 L ABG pO2 68.6 L ABG HCO3 ABG O2 Saturation ABG Base Excess -3.5 L ABG Hemoglobin 6.1 L Oxyhemoglobin 93.3 L Sodium Potassium Chloride Carbon Dioxide BUN Creatinine Glucose POC Glucose 114 H 119 H Lactic Acid Calcium Magnesium Iron TIBC Ferritin AST ALT Lactate Dehydrogenase Troponin T C-Reactive Protein Total Protein Albumin Cholesterol LDL Cholesterol Direct HDL Cholesterol Urine WBC (Auto) Vancomycin Trough Coronavirus (PCR) Crossmatch 07/16/19 07/16/19 07/16/19 04:41 04:41 12:09 WBC 19.6 H RBC 2.81 L Hgb 7.7 L Hct 24.0 L MCV MCH 27 L MCHC RDW 19.4 H Plt Count 514 H Lymph % (Auto) 6.7 L [place] % (Auto) Lymph # [place] # 1.0 H Baso # Seg Neutrophils % 87.0 H Seg Neuts % (Manual) Lymphocytes % (Manual) Monocytes % (Manual) Nucleated RBC % Seg Neutrophils # 17.0 H Seg Neutrophils # Man Lymphocytes # (Manual) Monocytes # (Manual) PT INR D-Dimer ABG pH ABG pO2 ABG HCO3 ABG O2 Saturation ABG Base Excess ABG Hemoglobin Oxyhemoglobin Sodium Potassium 5.9 H Chloride Carbon Dioxide 21 L BUN 73 H Creatinine 2.0 H Glucose POC Glucose 141 H Lactic Acid Calcium Magnesium Iron TIBC Ferritin AST ALT Lactate Dehydrogenase Troponin T C-Reactive Protein Total Protein Albumin Cholesterol LDL Cholesterol Direct HDL Cholesterol Urine WBC (Auto) Vancomycin Trough Coronavirus (PCR) Crossmatch 07/16/19 07/16/19 07/17/19 16:19 17:45 00:16 WBC RBC Hgb Hct MCV MCH MCHC RDW Plt Count Lymph % (Auto) [place] % (Auto) Lymph # [place] # Baso # Seg Neutrophils % Seg Neuts % (Manual) Lymphocytes % (Manual) Monocytes % (Manual) Nucleated RBC % Seg Neutrophils # Seg Neutrophils # Man Lymphocytes # (Manual) Monocytes # (Manual) PT INR D-Dimer ABG pH ABG pO2 ABG HCO3 ABG O2 Saturation ABG Base Excess ABG Hemoglobin Oxyhemoglobin Sodium Potassium 5.1 H Chloride Carbon Dioxide 20 L BUN 72 H Creatinine 1.7 H Glucose 128 H POC Glucose 181 H 164 H Lactic Acid Calcium Magnesium Iron TIBC Ferritin AST ALT Lactate Dehydrogenase Troponin T C-Reactive Protein Total Protein Albumin Cholesterol LDL Cholesterol Direct HDL Cholesterol Urine WBC (Auto) Vancomycin Trough Coronavirus (PCR) Crossmatch 07/17/19 07/17/19 07/17/19 04:20 04:39 04:39 WBC 16.1 H RBC 2.92 L Hgb 8.0 L Hct 25.5 L MCV MCH MCHC 31 L RDW 19.7 H Plt Count 564 H Lymph % (Auto) 3.6 L [place] % (Auto) 7.4 H Lymph # 0.6 L [place] # 1.2 H Baso # Seg Neutrophils % 87.5 H Seg Neuts % (Manual) Lymphocytes % (Manual) Monocytes % (Manual) Nucleated RBC % Seg Neutrophils # 14.1 H Seg Neutrophils # Man Lymphocytes # (Manual) Monocytes # (Manual) PT INR D-Dimer ABG pH 7.231 L ABG pO2 95.3 H ABG HCO3 ABG O2 Saturation ABG Base Excess -5.0 L ABG Hemoglobin 7.9 L Oxyhemoglobin 94.8 L Sodium Potassium Chloride 107.8 H Carbon Dioxide 21 L BUN 68 H Creatinine Glucose POC Glucose Lactic Acid Calcium Magnesium Iron TIBC Ferritin AST ALT Lactate Dehydrogenase Troponin T C-Reactive Protein Total Protein Albumin Cholesterol LDL Cholesterol Direct HDL Cholesterol Urine WBC (Auto) Vancomycin Trough Coronavirus (PCR) Crossmatch 07/17/19 07/17/19 07/17/19 05:28 12:11 18:48 WBC RBC Hgb Hct MCV MCH MCHC RDW Plt Count Lymph % (Auto) [place] % (Auto) Lymph # [place] # Baso # Seg Neutrophils % Seg Neuts % (Manual) Lymphocytes % (Manual) Monocytes % (Manual) Nucleated RBC % Seg Neutrophils # Seg Neutrophils # Man Lymphocytes # (Manual) Monocytes # (Manual) PT INR D-Dimer ABG pH ABG pO2 ABG HCO3 ABG O2 Saturation ABG Base Excess ABG Hemoglobin Oxyhemoglobin Sodium Potassium Chloride Carbon Dioxide BUN Creatinine Glucose POC Glucose 121 H 125 H 174 H Lactic Acid Calcium Magnesium Iron TIBC Ferritin AST ALT Lactate Dehydrogenase Troponin T C-Reactive Protein Total Protein Albumin Cholesterol LDL Cholesterol Direct HDL Cholesterol Urine WBC (Auto) Vancomycin Trough Coronavirus (PCR) Crossmatch 07/17/19 07/17/19 07/18/19 19:55 23:57 02:30 WBC RBC Hgb Hct MCV MCH MCHC RDW Plt Count Lymph % (Auto) [place] % (Auto) Lymph # [place] # Baso # Seg Neutrophils % Seg Neuts % (Manual) Lymphocytes % (Manual) Monocytes % (Manual) Nucleated RBC % Seg Neutrophils # Seg Neutrophils # Man Lymphocytes # (Manual) Monocytes # (Manual) PT INR D-Dimer ABG pH 7.344 L 7.294 L ABG pO2 78.5 L 119.2 H ABG HCO3 ABG O2 Saturation ABG Base Excess -3.3 L -2.6 L ABG Hemoglobin 8.6 L 8.1 L Oxyhemoglobin 94.8 L Sodium Potassium Chloride Carbon Dioxide BUN Creatinine Glucose POC Glucose 148 H Lactic Acid Calcium Magnesium Iron TIBC Ferritin AST ALT Lactate Dehydrogenase Troponin T C-Reactive Protein Total Protein Albumin Cholesterol LDL Cholesterol Direct HDL Cholesterol Urine WBC (Auto) Vancomycin Trough Coronavirus (PCR) Crossmatch 07/18/19 07/18/19 07/18/19 04:49 05:22 05:22 WBC 15.9 H RBC 3.00 L Hgb 8.1 L Hct 26.0 L MCV MCH 27 L MCHC 31 L RDW 19.4 H Plt Count 733 H Lymph % (Auto) 6.3 L [place] % (Auto) 7.4 H Lymph # 1.0 L [place] # 1.2 H Baso # 0.2 H Seg Neutrophils % 83.8 H Seg Neuts % (Manual) Lymphocytes % (Manual) Monocytes % (Manual) Nucleated RBC % Seg Neutrophils # 13.3 H Seg Neutrophils # Man Lymphocytes # (Manual) Monocytes # (Manual) PT INR D-Dimer ABG pH ABG pO2 ABG HCO3 ABG O2 Saturation ABG Base Excess ABG Hemoglobin Oxyhemoglobin Sodium Potassium Chloride 110.6 H Carbon Dioxide BUN 61 H Creatinine Glucose 109 H POC Glucose 116 H Lactic Acid Calcium Magnesium Iron TIBC Ferritin AST ALT Lactate Dehydrogenase Troponin T C-Reactive Protein Total Protein Albumin Cholesterol LDL Cholesterol Direct HDL Cholesterol Urine WBC (Auto) Vancomycin Trough Coronavirus (PCR) Crossmatch 07/18/19 07/18/19 07/18/19 12:23 18:06 22:20 WBC RBC Hgb Hct MCV MCH MCHC RDW Plt Count Lymph % (Auto) [place] % (Auto) Lymph # [place] # Baso # Seg Neutrophils % Seg Neuts % (Manual) Lymphocytes % (Manual) Monocytes % (Manual) Nucleated RBC % Seg Neutrophils # Seg Neutrophils # Man Lymphocytes # (Manual) Monocytes # (Manual) PT INR D-Dimer ABG pH 7.338 L ABG pO2 135.1 H ABG HCO3 ABG O2 Saturation ABG Base Excess ABG Hemoglobin 9.2 L Oxyhemoglobin Sodium Potassium Chloride Carbon Dioxide BUN Creatinine Glucose POC Glucose 114 H 113 H Lactic Acid Calcium Magnesium Iron TIBC Ferritin AST ALT Lactate Dehydrogenase Troponin T C-Reactive Protein Total Protein Albumin Cholesterol LDL Cholesterol Direct HDL Cholesterol Urine WBC (Auto) Vancomycin Trough Coronavirus (PCR) Crossmatch 04/29/20 04/30/20 04/30/20 23:33 03:45 05:18 WBC RBC Hgb Hct MCV MCH MCHC RDW Plt Count Lymph % (Auto) [place] % (Auto) Lymph # [place] # Baso # Seg Neutrophils % Seg Neuts % (Manual) Lymphocytes % (Manual) Monocytes % (Manual) Nucleated RBC % Seg Neutrophils # Seg Neutrophils # Man Lymphocytes # (Manual) Monocytes # (Manual) PT INR D-Dimer ABG pH 7.342 L ABG pO2 95.0 H ABG HCO3 ABG O2 Saturation ABG Base Excess ABG Hemoglobin 8.5 L Oxyhemoglobin Sodium Potassium Chloride Carbon Dioxide BUN Creatinine Glucose POC Glucose 125 H 111 H Lactic Acid Calcium Magnesium Iron TIBC Ferritin AST ALT Lactate Dehydrogenase Troponin T C-Reactive Protein Total Protein Albumin Cholesterol LDL Cholesterol Direct HDL Cholesterol Urine WBC (Auto) Vancomycin Trough Coronavirus (PCR) Crossmatch 07/19/19 07/19/19 07/19/19 08:45 08:45 11:47 WBC 15.9 H RBC 3.31 L Hgb 9.1 L Hct 28.4 L MCV MCH 27 L MCHC RDW 19.1 H Plt Count 858 H Lymph % (Auto) 4.9 L [place] % (Auto) 8.1 H Lymph # 0.8 L [place] # 1.3 H Baso # Seg Neutrophils % 85.5 H Seg Neuts % (Manual) Lymphocytes % (Manual) Monocytes % (Manual) Nucleated RBC % Seg Neutrophils # 13.6 H Seg Neutrophils # Man Lymphocytes # (Manual) Monocytes # (Manual) PT INR D-Dimer ABG pH ABG pO2 ABG HCO3 ABG O2 Saturation ABG Base Excess ABG Hemoglobin Oxyhemoglobin Sodium Potassium Chloride 111.6 H Carbon Dioxide BUN 50 H Creatinine 0.7 L Glucose 118 H POC Glucose 114 H Lactic Acid Calcium Magnesium Iron TIBC Ferritin AST ALT Lactate Dehydrogenase Troponin T C-Reactive Protein Total Protein Albumin Cholesterol LDL Cholesterol Direct HDL Cholesterol Urine WBC (Auto) Vancomycin Trough Coronavirus (PCR) Crossmatch 07/19/19 07/19/19 07/20/19 18:25 23:44 04:39 WBC RBC Hgb Hct MCV MCH MCHC RDW Plt Count Lymph % (Auto) [place] % (Auto) Lymph # [place] # Baso # Seg Neutrophils % Seg Neuts % (Manual) Lymphocytes % (Manual) Monocytes % (Manual) Nucleated RBC % Seg Neutrophils # Seg Neutrophils # Man Lymphocytes # (Manual) Monocytes # (Manual) PT INR D-Dimer ABG pH ABG pO2 ABG HCO3 ABG O2 Saturation ABG Base Excess ABG Hemoglobin Oxyhemoglobin Sodium Potassium Chloride 110.3 H Carbon Dioxide BUN 44 H Creatinine 0.6 L Glucose 120 H POC Glucose 115 H 117 H Lactic Acid Calcium Magnesium Iron TIBC Ferritin AST ALT Lactate Dehydrogenase Troponin T C-Reactive Protein Total Protein Albumin Cholesterol LDL Cholesterol Direct HDL Cholesterol Urine WBC (Auto) Vancomycin Trough Coronavirus (PCR) Crossmatch 07/20/19 07/21/19 07/21/19 05:30 11:59 17:40 WBC RBC Hgb Hct MCV MCH MCHC RDW Plt Count Lymph % (Auto) [place] % (Auto) Lymph # [place] # Baso # Seg Neutrophils % Seg Neuts % (Manual) Lymphocytes % (Manual) Monocytes % (Manual) Nucleated RBC % Seg Neutrophils # Seg Neutrophils # Man Lymphocytes # (Manual) Monocytes # (Manual) PT INR D-Dimer ABG pH ABG pO2 ABG HCO3 ABG O2 Saturation ABG Base Excess ABG Hemoglobin Oxyhemoglobin Sodium Potassium Chloride Carbon Dioxide BUN Creatinine Glucose POC Glucose 131 H 122 H 125 H Lactic Acid Calcium Magnesium Iron TIBC Ferritin AST ALT Lactate Dehydrogenase Troponin T C-Reactive Protein Total Protein Albumin Cholesterol LDL Cholesterol Direct HDL Cholesterol Urine WBC (Auto) Vancomycin Trough Coronavirus (PCR) Crossmatch 07/22/19 07/22/19 07/22/19 05:38 05:38 12:29 WBC 12.6 H RBC 3.19 L Hgb 8.9 L Hct 27.5 L MCV MCH MCHC RDW 18.9 H Plt Count 1101 H* Lymph % (Auto) [place] % (Auto) 12.2 H Lymph # [place] # 1.5 H Baso # Seg Neutrophils % 72.8 H Seg Neuts % (Manual) 76.0 H Lymphocytes % (Manual) 7.0 L Monocytes % (Manual) 14.0 H Nucleated RBC % 1.0 H Seg Neutrophils # 9.2 H Seg Neutrophils # Man 9.6 H Lymphocytes # (Manual) 0.9 L Monocytes # (Manual) 1.8 H PT INR D-Dimer ABG pH ABG pO2 ABG HCO3 ABG O2 Saturation ABG Base Excess ABG Hemoglobin Oxyhemoglobin Sodium Potassium 3.4 L Chloride Carbon Dioxide BUN 29 H Creatinine 0.5 L Glucose POC Glucose 116 H Lactic Acid Calcium Magnesium Iron TIBC Ferritin AST ALT Lactate Dehydrogenase Troponin T C-Reactive Protein Total Protein Albumin Cholesterol LDL Cholesterol Direct HDL Cholesterol Urine WBC (Auto) Vancomycin Trough Coronavirus (PCR) Crossmatch 07/22/19 07/22/19 07/23/19 18:20 23:51 04:52 WBC RBC Hgb Hct MCV MCH MCHC RDW Plt Count Lymph % (Auto) [place] % (Auto) Lymph # [place] # Baso # Seg Neutrophils % Seg Neuts % (Manual) Lymphocytes % (Manual) Monocytes % (Manual) Nucleated RBC % Seg Neutrophils # Seg Neutrophils # Man Lymphocytes # (Manual) Monocytes # (Manual) PT INR D-Dimer ABG pH ABG pO2 ABG HCO3 ABG O2 Saturation ABG Base Excess ABG Hemoglobin Oxyhemoglobin Sodium Potassium Chloride Carbon Dioxide BUN 24 H Creatinine 0.4 L Glucose POC Glucose 107 H 110 H Lactic Acid Calcium Magnesium Iron TIBC Ferritin AST ALT Lactate Dehydrogenase Troponin T C-Reactive Protein Total Protein Albumin Cholesterol LDL Cholesterol Direct HDL Cholesterol Urine WBC (Auto) Vancomycin Trough Coronavirus (PCR) Crossmatch 07/23/19 07/23/19 07/24/19 06:00 23:15 04:40 WBC RBC Hgb Hct MCV MCH MCHC RDW Plt Count Lymph % (Auto) [place] % (Auto) Lymph # [place] # Baso # Seg Neutrophils % Seg Neuts % (Manual) Lymphocytes % (Manual) Monocytes % (Manual) Nucleated RBC % Seg Neutrophils # Seg Neutrophils # Man Lymphocytes # (Manual) Monocytes # (Manual) PT INR D-Dimer ABG pH ABG pO2 73.5 L ABG HCO3 27.0 H 28.5 H ABG O2 Saturation 94.5 L ABG Base Excess ABG Hemoglobin 9.4 L 8.9 L Oxyhemoglobin 94.0 L 92.7 L Sodium Potassium Chloride Carbon Dioxide BUN Creatinine Glucose POC Glucose 117 H Lactic Acid Calcium Magnesium Iron TIBC Ferritin AST ALT Lactate Dehydrogenase Troponin T C-Reactive Protein Total Protein Albumin Cholesterol LDL Cholesterol Direct HDL Cholesterol Urine WBC (Auto) Vancomycin Trough Coronavirus (PCR) Crossmatch 07/24/19 05:25 WBC RBC Hgb Hct MCV MCH MCHC RDW Plt Count Lymph % (Auto) [place] % (Auto) Lymph # [place] # Baso # Seg Neutrophils % Seg Neuts % (Manual) Lymphocytes % (Manual) Monocytes % (Manual) Nucleated RBC % Seg Neutrophils # Seg Neutrophils # Man Lymphocytes # (Manual) Monocytes # (Manual) PT INR D-Dimer ABG pH ABG pO2 ABG HCO3 ABG O2 Saturation ABG Base Excess ABG Hemoglobin Oxyhemoglobin Sodium Potassium Chloride Carbon Dioxide BUN Creatinine Glucose POC Glucose 114 H Lactic Acid Calcium Magnesium Iron TIBC Ferritin AST ALT Lactate Dehydrogenase Troponin T C-Reactive Protein Total Protein Albumin Cholesterol LDL Cholesterol Direct HDL Cholesterol Urine WBC (Auto) Vancomycin Trough Coronavirus (PCR) Crossmatch Allied health notes reviewed: nursing
--- NOTE | 2019-07-24 15:22 | Progress Note ---
Assessment and Plan Cultures: 07/03/2019 urine culture: No growth 07/03/2019 Tracheal aspirate: E.coli A/P: 69-year-old male with CVA, hypertension, dementia, schizophrenia, alcohol use disorder was admitted to the emergency room after being brought in by EMS with progressive shortness of breath and unresponsiveness. He was noted to have agonal breathing and a faint pulse requiring CPR. It seems patient was on hospice recently. #Shock, likely septic: Lactic acidosis. Remains off pressors. #Severe COVID-19 disease and pneumonia: Elevated markers. Completed Plaquenil. Completed Ceftriaxone for treatment E.coli in tracheal aspirate. #Acute respiratory failure: on mechanical ventilation. #Transaminitis: Likely from COVID-19, shock #Leucocytosis: ?reactive from above. Recs: continue supportive care for COVID-19 agree with DNR. Poor prognosis. Mekhi Barboza MD [facility] ([facility]) M: [phone] O: [phone] F: [phone] Subjective Date of service: 07/24/19 Principal diagnosis: Bilateral pneumonia, severe sepsis with septic shock, encephalopathy Interval history: Afebrile, no acute change today. Remains in the ICU, family wanting aggressive treatment. Objective - Exam Narrative Exam: Physical Exam (reviewed in chart due to PPE conservation) Constitutional: intubated, sedated, on the vent Head, Ears, Nose: normocephalic, atraumatic Eyes: limited due to PPE conservation strategy Neck: intubated Oral: intubated Cardiovascular: limited due to PPE conservation strategy Respiratory: limited due to PPE conservation strategy GI: limited due to PPE conservation strategy Musculoskeletal: limited due to PPE conservation strategy Skin: limited due to PPE conservation strategy Hem/Lymphatic: limited due to PPE conservation strategy Psych: no agitation Neurological: sedated, intubated, on the vent, exam limited - Constitutional Vitals: Vital Signs Temp Pulse Resp BP Pulse Ox 97.7 F 114 H 17 116/60 100 07/24/19 12:00 07/24/19 14:16 07/24/19 14:16 07/24/19 14:16 07/24/19 14:16 Temperature -Last 24 Hours Temperature 97.7 F Temperature 97.8 F Temperature 98.6 F Temperature 98.5 F Temperature 96.3 F Temperature 98.1 F - Labs CBC & Chem 7: 07/22/19 05:38 07/23/19 04:52 Labs: Abnormal lab results 07/23/19 07/24/19 07/24/19 Range/Units 23:15 04:40 05:25 ABG pO2 73.5 L (80.0-90.0) mm Hg ABG HCO3 28.5 H (20.0-26.0) mmol/L ABG O2 Saturation 94.5 L (95.0-99.0) % ABG Hemoglobin 8.9 L (14.0-18.0) gm/dl Oxyhemoglobin 92.7 L (95.0-99.0) % POC Glucose 117 H 114 H (70-105)
[2019-07-25 05:37] LABS: Hematocrit 28.6 % (35.5-45.6); Hemoglobin 9.2 gm/dl (11.8-15.2); Mean Corpuscular HGB Conc 32 % (32-34); Mean Corpuscular Volume 86 fl (84-94); Platelet Count 994 K/mm3 (140-440); Red Blood Count 3.32 M/mm3 (3.65-5.03); Red Cell Distribution Width 19.9 % (13.2-15.2)
[2019-07-25 05:52] LABS: BUN/Creatinine Ratio 45; Blood Urea Nitrogen 18 mg/dL (9-20); Calcium 9.3 mg/dL (8.4-10.2); Hemolysis Index 6
[2019-07-25] MEDS: INSULIN LISPRO 100 UNIT/ML SUB-Q SCH ×4 (05:57→18:22)
[2019-07-25 06:30] LABS: Anisocytosis Few; Band Neutrophils # (Manual) 0.5 K/mm3; Basophils % (Manual) 0 % (0.0-1.8); Total Cells Counted 100
[2019-07-25 06:31] LABS: Hypochromasia Rare
[2019-07-25 06:32] LABS: Platelet Estimate Consistent w Auto
--- NOTE | 2019-07-25 08:44 | Progress Note ---
Assessment and Plan 1. Hypoantremia: Suspect SIADH. Sodium level currently 137. Monitor Sodium level. 2. FEN: Metabolic acidosis, improved, monitor. Hypokalemia, improved, monitor. Monitor volume status and lytes. 3. Acute kidney injury: Vasomotor MIRANDA likely 2/2 persistent hypotension. Initial bump in creatinine was 07/14. Creatinine is better. Monitor renal function. Avoid nephrotoxic agents. Meds dosage based on GFR. 4. Acute hypoxic respiratory failure: Currently intubated, sedated, and on vent. Pulmonary following. 5. Severe Sepsis, POA: Followed by ID. 6. Severe COVID-19 pneumonia. 7. Shock: Off pressors. Monitor BP closely. 8. Microcytic anemia, POA: Has received total of 4 units PRBC. Hgb improved 07/15 s/p PRBC. Monitor hgb. 9. Possible occlusion of PEG tube: Occlusion noted by staff. Imaging 07/16 confirmed PEG is in place. 10. Diabetes mellitus. 11. COPD. 12. Encephalopathy, POA: Metabolic. At this time we will sign off on patient as he has been stable from a renal standpoint for several days. We will follow along and offer treatment if necessary. Subjective Date of service: 07/25/19 Principal diagnosis: Bilateral pneumonia, severe sepsis with septic shock, encephalopathy Interval history: Patient was only seen from outside the glass door to prevent exposure to COVID- 19. PPE is also limited supply. Reviewed all notes, vitals, and labs to date. No acute events reported overnight. Spoke with primary RN regarding plan of care. Objective - Exam Narrative Exam: General appearance: intubated on ventilator, carroll bag HEENT: not examined Neck: not examined Respiratory: not examined Heart: sinus tach on the monitor Gastrointestinal: not examined Integumentary: not examined Neurologic: not examined, sedated Ext: not examined - Vital Signs Vital signs: Vital Signs - 12hr 07/24/19 07/24/19 07/24/19 20:46 21:00 21:16 Temperature Pulse Rate 115 H 116 H 116 H Pulse Rate [ From Monitor] Respiratory 15 15 15 Rate Blood Pressure 124/72 127/69 127/69 O2 Sat by Pulse 100 100 100 Oximetry 07/24/19 07/24/19 07/24/19 21:30 21:46 22:00 Temperature Pulse Rate 114 H 115 H 116 H Pulse Rate [ From Monitor] Respiratory 16 16 15 Rate Blood Pressure 132/72 132/72 135/74 O2 Sat by Pulse 100 100 100 Oximetry 07/24/19 07/24/19 07/24/19 22:16 22:24 22:30 Temperature Pulse Rate 118 H 115 H 116 H Pulse Rate [ From Monitor] Respiratory 16 15 18 Rate Blood Pressure 135/74 135/74 135/73 O2 Sat by Pulse 100 100 100 Oximetry 07/24/19 07/24/19 07/24/19 22:46 23:00 23:16 Temperature Pulse Rate 116 H 116 H 114 H Pulse Rate [ From Monitor] Respiratory 17 15 15 Rate Blood Pressure 135/73 133/68 135/73 O2 Sat by Pulse 100 100 100 Oximetry 07/24/19 07/24/19 07/25/19 23:30 23:46 00:00 Temperature 98.6 F Pulse Rate 115 H 114 H 117 H Pulse Rate [ From Monitor] Respiratory 15 16 15 Rate Blood Pressure 135/70 133/68 144/74 O2 Sat by Pulse 100 100 100 Oximetry 07/25/19 07/25/19 07/25/19 00:16 00:25 00:27 Temperature Pulse Rate 117 H 116 H Pulse Rate [ 116 H From Monitor] Respiratory 19 19 Rate Blood Pressure 144/74 O2 Sat by Pulse 100 100 Oximetry 07/25/19 07/25/19 07/25/19 00:30 00:33 00:46 Temperature Pulse Rate 115 H 114 H 114 H Pulse Rate [ From Monitor] Respiratory 16 16 Rate Blood Pressure 138/73 138/73 138/73 O2 Sat by Pulse 100 100 100 Oximetry 07/25/19 07/25/19 07/25/19 01:00 01:16 01:30 Temperature Pulse Rate 112 H 116 H 115 H Pulse Rate [ From Monitor] Respiratory 15 20 16 Rate Blood Pressure 139/73 139/73 142/76 O2 Sat by Pulse 100 100 100 Oximetry 07/25/19 07/25/19 07/25/19 01:46 02:00 02:16 Temperature Pulse Rate 117 H 120 H 116 H Pulse Rate [ From Monitor] Respiratory 17 17 16 Rate Blood Pressure 142/76 144/78 142/76 O2 Sat by Pulse 100 100 100 Oximetry 07/25/19 07/25/19 07/25/19 02:30 02:46 03:00 Temperature Pulse Rate 116 H 113 H 112 H Pulse Rate [ From Monitor] Respiratory 16 16 17 Rate Blood Pressure 136/70 136/70 145/75 O2 Sat by Pulse 100 100 100 Oximetry 07/25/19 07/25/19 07/25/19 03:16 03:30 03:46 Temperature Pulse Rate 115 H 114 H 114 H Pulse Rate [ From Monitor] Respiratory 17 17 16 Rate Blood Pressure 145/75 143/79 143/79 O2 Sat by Pulse 100 100 100 Oximetry 07/25/19 07/25/19 07/25/19 04:00 04:16 04:30 Temperature Pulse Rate 115 H 114 H 111 H Pulse Rate [ 118 H From Monitor] Respiratory 18 17 15 Rate Blood Pressure 147/76 147/76 141/83 O2 Sat by Pulse 100 100 100 Oximetry 07/25/19 07/25/19 07/25/19 04:46 05:00 05:08 Temperature Pulse Rate 114 H 115 H 116 H Pulse Rate [ From Monitor] Respiratory 16 17 Rate Blood Pressure 141/83 146/81 146/81 O2 Sat by Pulse 100 100 100 Oximetry 07/25/19 07/25/19 07/25/19 05:16 05:30 05:46 Temperature Pulse Rate 114 H 113 H 114 H Pulse Rate [ From Monitor] Respiratory 17 17 16 Rate Blood Pressure 146/81 144/74 144/74 O2 Sat by Pulse 100 100 100 Oximetry 07/25/19 07/25/19 07/25/19 06:00 06:16 06:30 Temperature Pulse Rate 113 H 115 H 114 H Pulse Rate [ From Monitor] Respiratory 17 14 16 Rate Blood Pressure 142/73 144/74 141/78 O2 Sat by Pulse 100 100 100 Oximetry 07/25/19 08:32 Temperature Pulse Rate 113 H Pulse Rate [ From Monitor] Respiratory Rate Blood Pressure 150/81 O2 Sat by Pulse 100 Oximetry - Lab 07/25/19 05:14 07/25/19 05:14 Most recent lab results ABG pH 7.364 pH Units (7.350-7.450) 07/24/19 04:40 ABG pCO2 51.1 mm Hg 07/24/19 04:40 ABG pO2 73.5 mm Hg (80.0-90.0) L 07/24/19 04:40 ABG HCO3 28.5 mmol/L (20.0-26.0) H 07/24/19 04:40 ABG O2 Saturation 94.5 % (95.0-99.0) L 07/24/19 04:40 Calcium 9.3 mg/dL (8.4-10.2) 07/25/19 05:14 Phosphorus 3.60 mg/dL (2.5-4.5) 07/05/19 04:00 Magnesium 1.80 mg/dL (1.7-2.3) 07/11/19 05:14 Medications & Allergies - Medications Allergies/Adverse Reactions: Allergies No Known Allergies Allergy (Unverified 09/09/16 16:29) Home Medications: Home Medications Medication Instructions Recorded Confirmed Last Taken Type Acetaminophen [Tylenol] 500 mg PO TID 07/04/19 07/04/19 Unknown History Albuterol Sulfate [Proair 90 mcg IH TID 07/04/19 07/04/19 Unknown History Digihaler] Amlodipine Besylate [Norvasc] 2.5 mg PO QDAY 07/04/19 07/04/19 Unknown History Aspirin [Aspirin BABY CHEW TAB] 81 mg PO QDAY 07/04/19 07/04/19 Unknown History Atorvastatin Calcium [Lipitor] 80 mg PO QDAY 07/04/19 07/04/19 Unknown History Benztropine Mesylate 0.5 mg PO QDAY 07/04/19 07/04/19 Unknown History Budesonide/Formoterol Fumarate 10.2 gm IH BID 07/04/19 07/04/19 Unknown History [Budesonide-Formoterol 160-4.5] Divalproex ER [DepaKOTE ER] 1,000 mg PO QDAY 07/04/19 07/04/19 Unknown History Docusate Sodium [Colace] 100 mg PO QDAY 07/04/19 07/04/19 Unknown History Folic Acid [Folvite] 1 mg PO QDAY 07/04/19 07/04/19 Unknown History Hydrophilic Ointment [Dermafix] 113 gm TP QDAY 07/04/19 07/04/19 Unknown History Losartan [Cozaar] 100 mg PO QDAY 07/04/19 07/04/19 Unknown History Metformin HCl [Metformin HCl ER] 500 mg PO QDAY 07/04/19 07/04/19 Unknown History Metoprolol Tartrate 25 mg PO BID 07/04/19 07/04/19 Unknown History Multivit with Minerals/Ginseng 1 each PO QDAY 07/04/19 07/04/19 Unknown History [Super Ginseng Multivit Cap] Quetiapine Fumarate [SEROquel Xr] 400 mg PO QHS 07/04/19 07/04/19 Unknown History Sertraline HCl [Zoloft] 100 mg PO QDAY 07/04/19 07/04/19 Unknown History Sildenafil Citrate [Viagra] 100 mg PO QDAY PRN 07/04/19 07/04/19 Unknown History Tamsulosin [Flomax] 0.4 mg PO QDAY 07/04/19 07/04/19 Unknown History Active Medications: Generic Name Dose Route Start Last Admin Trade Name Freq PRN Reason Stop Dose Admin Acetaminophen 650 mg 07/04/19 04:24 Tylenol IL Q6H PRN Pain MILD(1-3)/Fever >100.5/MURO Acetaminophen 650 mg 07/10/19 04:00 07/15/19 20:35 Tylenol PO 650 mg Q6HR PRN Administration Pain, Mild (1-3) FEVER Lipase/Protease/Amylase 1 each 07/04/19 10:04 07/20/19 06:15 Pancrewhitley Gilbert 10,500 Unit FEEDTUBE 1 each PRN PRN Administration For Clogged Feeding Tube Aspirin 81 mg 07/05/19 10:00 07/24/19 09:41 Baby Aspirin PO 81 mg QDAY TAMMIE Administration Dextrose 50 ml 07/04/19 06:54 D50w (25gm) Syringe IV Q30MIN PRN Hypoglycemia Protocol Docusate Sodium 100 mg 07/10/19 10:00 07/24/19 22:07 Colace PO 100 mg BID TAMMIE Administration Enoxaparin Sodium 40 mg 07/24/19 10:00 07/24/19 09:41 Enoxaparin SUB-Q 40 mg QDAY@1000 TAMMIE Administration Famotidine 20 mg 07/23/19 22:00 07/24/19 22:07 Pepcid PO 20 mg BID TAMMIE Administration Fentanyl 50 mcg 07/21/19 15:18 Sublimaze IV Q10MIN PRN ANALGESIA Folic Acid 1 mg 07/05/19 10:00 07/24/19 09:41 Folvite PO 1 mg QDAY TAMMIE Administration Hydrophilic Ointment 1 applic 07/03/19 19:56 04/16/20 17:42 Vaseline Lip Therapy TP 1 applic Q2HR PRN Administration Dry Lips Norepinephrine 4 mg in 250 mls @ 7.5 mls/hr 07/03/19 23:00 07/20/19 01:00 Levophed Drip 4 Mg/Ns 250 Ml IV Infused TITR TAMMIE Titration Protocol 2 MCG/MIN Fentanyl Citrate 2,000 mcg in 100 mls @ 4.75 mls/hr 07/21/19 16:00 07/24/19 18:49 Fentanyl Drip Premix IV 1 mcg/kg/hr TITR TAMMIE 4.75 mls/hr Administration Protocol 1 MCG/KG/HR Insulin Human Lispro 0 unit 07/07/19 12:00 07/25/19 05:57 Humalog SUB-Q Not Given Q6HR [facility] Protocol Levetiracetam 750 mg 07/06/19 11:00 07/24/19 22:07 Keppra FEEDTUBE 750 mg Q12HR TAMMIE Administration Metoprolol Tartrate 5 mg 07/12/19 15:08 07/12/19 15:30 Metoprolol IV 5 mg Q6HR PRN Administration Tachyarrhythmias Multi-Ingred Cream/Lotion/Oil/Oint 1 applic 07/03/19 19:56 07/05/19 13:19 Artificial Tears Ophth Oint OU 1 applic Q4HR PRN Administration Dry Eye(s) Naloxone HCl 0.1 mg 07/04/19 04:24 Naloxone IV Q2MIN PRN Res Rate </= 8 or 02 SAT < 92% Oxycodone/Acetaminophen 1 tab 07/19/19 14:17 Percocet 5/325 PO Q4H PRN Pain, Moderate (4-6) Scopolamine 1 each 07/10/19 11:00 07/22/19 10:30 Transderm-Scop TD 1 each Q3D TAMMIE Administration Simple Syrup 15 ml 07/04/19 10:04 07/10/19 21:56 Simple Syrup FEEDTUBE 15 ml PRN PRN Administration Hypoglycemia Simple Syrup 30 ml 07/04/19 10:04 Simple Syrup FEEDTUBE PRN PRN Hypoglycemia Sodium Bicarbonate 325 mg 07/04/19 10:04 07/20/19 10:20 Sodium Bicarbonate FEEDTUBE 325 mg PRN PRN Administration For Clogged Feeding Tube Sodium Chloride 10 ml 07/04/19 10:00 07/24/19 22:08 Sodium Chloride Flush Syringe 10 Ml IV 10 ml BID TAMMIE Administration Sodium Chloride 10 ml 07/04/19 04:24 Sodium Chloride Flush Syringe 10 Ml IV PRN PRN LINE FLUSH Sodium Hypochlorite 1 applic 07/10/19 14:00 07/24/19 22:08 Dakin's Half Strength TP 1 applicatio BID TAMMIE Administration
--- NOTE | 2019-07-25 08:48 | Progress Note ---
Assessment and Plan Assessment and plan: 69-year-old male patient with PMH of CVA with RHP, HTN, DM2, SCZ, Dementia, Alcohol use D/o, Seizure D/O, presents to the emergency department via EMS from home with progressive SOB and impending espiratory failure with an unresponsive . PT was intubated was admitted through emergency room to ICU treated for sepsis, b/l PNA, acute respiratory failure received antibiotics. Patient was tested positive for COVID19. Evaluated by ID , received antibiotics Plaquenil, and inflammatory markers were checked and followed. Patient was hypotensive requiring Levophed, continues to be hypotensive currently on Levophed, unable to wean remains intubated on ventilatory support, critically ill, DNR status howev er family wants full treatment. --COVid-19 infection with pneumonia with severe sepsis Received Plaquenil and cefepime, monitor off antibiotics ID following --Septic shock: On Levophed Persistent hypotension, titrate to systolic blood pressure more than 100 -- Acute respiratory Failure with Hypoxia Due to bilateral PNA with COVID 19 infection. On ventilatory support, unable to wean Pulmonary critical following --COPD with exacerbation Likely due to COVID-19 pneumonia Continue scheduled nebs --Anemia, Microcytic persistent s/p total 3 unit of PRBC, today Hb today 9.1 --Pressure Ulcers: POA buttocks, right lateral foot area wound and supportive care --Hyponatremia, resolved --DM type 2: Accu-Chek SCC tube feeding, insulin as needed --h/o HTN Essential, now hypotensive On Levophed --Seizure D/o/CVA/immobility/BIpolar D/o/SCZ Seizure precautions, antiepileptic medications --Severe PCM, TF supportive care, dietary following patient is DNR- Called and verified information Very poor prognosis, Recommend hospice 07/04: COVID +ve, start on plaquinil, called no answer 07/05: transfuse one unit PRBC, Hb dropped to ~6, called and updated 07/06; H&H stable, serum chemistry improved. On mechanical ventilation with high inflammatory markers. Continue Plaquenil and empiric antibiotics. ID following, prognosis remains guarded and extremely poor. 07/07: On mechanical ventilation with high inflammatory markers. Continue Plaquenil and empiric antibiotics. ID following, prognosis remains guarded and extremely poor. 07/08: Called today and verified the CODE STATUS. Patient remains DNR. He is still intubated, with poor prognosis. Continue to follow inflammatory markers. 07/09 wean off from vent as tolerated, completed empiric antibiotic and Plaqu enil 07/10 wean off from vent as tolerated. poor prognosis 07/11 hb 6.7 today, transfuse one PRBC. wean off from vent as tolerated. poor prognosis 07/12 remains critically on vent. Hb 6.9 07/13 Hb dropped to 6.6, transfuse 1 unit of PRBC, remains on vent critically ill Hypotensive, fluid bolus, if no improvement start Levophed 07/14; remains anemic with hemoglobin of 6.8, received total 3 units of PRBC Additional 1 unit of PRBC today, stool for occult blood to rule out GI causes Started back on Levophed due to hypotension 07/15; patient remains critically ill, hypotensive on Levophed 07/16: Today remains intubated on vent, persistent hypotension on Levophed 07/17; clinically no change, pressor dependent[on Levophed] DNR status 07/18: Patient remains hypotensive requiring Levophed, intubated on vent Unable to wean, critically ill. DNR 07/20/2019 Patient remains hypotensive requiring Levophed, intubated on vent. Patient currently with AC mode ventilation, rate 20, tidal volume 500, FiO2 40% and PEEP 6. Patient is a poor prognosis and apparently was on hospice recently. 07/21/2019. Patient with PEG tube that was clogged yesterday. surgery evaluated the patient and noted Very long PEG tubing with thick material inside. The entire tube was stripped and a large amount of formed tube feed was expressed. The tube was then flushed with sprite and flushed easily. Tube clamped. Patient currently with AC mode ventilation, rate 20, tidal volume 500, FiO2 40% and PEEP 6. Patient is a poor prognosis and apparently was on hospice recently. 07/22/2019. Patient currently with AC mode ventilation, rate 20, tidal volume 500, FiO2 30% and PEEP 6. Patient on sedation with fentanyl drip. Continue Levophed to maintain MAP greater than 65. Patient is a poor prognosis and apparently was on hospice recently. 07/23/2019. Patient currently with AC mode ventilation, rate 20, tidal volume 500, FiO2 30% and PEEP 6. Patient on sedation with fentanyl drip. Continue Levophed to maintain MAP greater than 65. Patient is a poor prognosis and apparently was on hospice recently. 07/24/2019 Patient with Covid-19 infection with pneumonia, acute respiratory failure, intubated on ventilator. No more fever. Continue current management. 07/25/2019 Patient with Covid-19 infection with pneumonia, acute respiratory fail ure, intubated on ventilator. fever is now resolved. 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 The aggregate critical care time was [32] minutes. This time is in addition to time spent performing reported procedures but includes the following: [x] Data Review and interpretation [x] Patient assessment and monitoring of vital signs [x] Documentation [x] Medication orders and management History Interval history: patient with Covid-19 infection Still intubated No more fever Hospitalist Physical - Physical exam Narrative exam: GEN: Not in acute distress, intubated,obese HEENT: Normocephalic, atraumatic, Neck: supple, No JVD Lungs: Bilateral crackles, heart;S1 and S2 reg, no murmurs, rubs or gallop Abd:soft, non tender, non distended, normal bowel sounds,PEG tube Ext: No edema, no clubbing, no cyanosis, Neuro: Intubated, on ventilator,sedated - Constitutional Vitals: Temp Pulse Resp BP Pulse Ox 98.6 F 113 H 16 150/81 100 07/25/19 00:00 07/25/19 08:32 07/25/19 06:30 07/25/19 08:32 07/25/19 08:32 General appearance: Present: no acute distress, well-nourished, other (Orally intubated on vent) Results - Labs CBC & Chem 7: 07/25/19 05:14 07/25/19 05:14 Labs: Laboratory Last Values WBC 17.8 K/mm3 (4.5-11.0) H 07/25/19 05:14 RBC 3.32 M/mm3 (3.65-5.03) L 07/25/19 05:14 Hgb 9.2 gm/dl (11.8-15.2) L 07/25/19 05:14 Hct 28.6 % (35.5-45.6) L 07/25/19 05:14 MCV 86 fl (84-94) 07/25/19 05:14 MCH 28 pg (28-32) 07/25/19 05:14 MCHC 32 % (32-34) 07/25/19 05:14 RDW 19.9 % (13.2-15.2) H 07/25/19 05:14 Plt Count 994 K/mm3 (140-440) H 07/25/19 05:14 Lymph % (Auto) 4.9 % (13.4-35.0) L 07/19/19 08:45 Posey % (Auto) 12.2 % (0.0-7.3) H 07/22/19 05:38 Eos % (Auto) 1.0 % (0.0-4.3) 07/19/19 08:45 Baso % (Auto) 0.5 % (0.0-1.8) 07/19/19 08:45 Lymph # 0.8 K/mm3 (1.2-5.4) L 07/19/19 08:45 Posey # 1.5 K/mm3 (0.0-0.8) H 07/22/19 05:38 Eos # 0.2 K/mm3 (0.0-0.4) 07/19/19 08:45 Baso # 0.1 K/mm3 (0.0-0.1) 07/19/19 08:45 Add Manual Diff Complete 07/25/19 05:14 Total Counted 100 07/25/19 05:14 Seg Neutrophils % 72.8 % (40.0-70.0) H 07/22/19 05:38 Seg Neuts % (Manual) 82.0 % (40.0-70.0) H 07/25/19 05:14 Band Neutrophils % 3.0 % 07/25/19 05:14 Lymphocytes % (Manual) 5.0 % (13.4-35.0) L 07/25/19 05:14 Reactive Lymphs % (Man) 0 % 07/25/19 05:14 Monocytes % (Manual) 7.0 % (0.0-7.3) 07/25/19 05:14 Eosinophils % (Manual) 2.0 % (0.0-4.3) 07/25/19 05:14 Basophils % (Manual) 0 % (0.0-1.8) 07/25/19 05:14 Metamyelocytes % 1.0 % 07/25/19 05:14 Myelocytes % 0 % 07/25/19 05:14 Promyelocytes % 0 % 07/25/19 05:14 Blast Cells % 0 % 07/25/19 05:14 Nucleated RBC % Not Reportable 07/25/19 05:14 Seg Neutrophils # 9.2 K/mm3 (1.8-7.7) H 07/22/19 05:38 Seg Neutrophils # Man 14.6 K/mm3 (1.8-7.7) H 07/25/19 05:14 Band Neutrophils # 0.5 K/mm3 07/25/19 05:14 Lymphocytes # (Manual) 0.9 K/mm3 (1.2-5.4) L 07/25/19 05:14 Abs React Lymphs (Man) 0.0 K/mm3 07/25/19 05:14 Monocytes # (Manual) 1.2 K/mm3 (0.0-0.8) H 07/25/19 05:14 Eosinophils # (Manual) 0.4 K/mm3 (0.0-0.4) 07/25/19 05:14 Basophils # (Manual) 0.0 K/mm3 (0.0-0.1) 07/25/19 05:14 Metamyelocytes # 0.2 K/mm3 07/25/19 05:14 Myelocytes # 0.0 K/mm3 07/25/19 05:14 Promyelocytes # 0.0 K/mm3 07/25/19 05:14 Blast Cells # 0.0 K/mm3 07/25/19 05:14 WBC Morphology Not Reportable 07/25/19 05:14 Hypersegmented Neuts Not Reportable 07/25/19 05:14 Hyposegmented Neuts Not Reportable 07/25/19 05:14 Hypogranular Neuts Not Reportable 07/25/19 05:14 Smudge Cells Not Reportable 07/25/19 05:14 Toxic Granulation Not Reportable 07/25/19 05:14 Toxic Vacuolation Not Reportable 07/25/19 05:14 Dohle Bodies Not Reportable 07/25/19 05:14 Pelger-Huet Anomaly Not Reportable 07/25/19 05:14 Mendy Rods Not Reportable 07/25/19 05:14 Platelet Estimate Consistent w auto 07/25/19 05:14 Clumped Platelets Not Reportable 07/25/19 05:14 Plt Clumps, EDTA Not Reportable 07/25/19 05:14 Large Platelets Not Reportable 07/25/19 05:14 Giant Platelets Not Reportable 07/25/19 05:14 Platelet Satelliting Not Reportable 07/25/19 05:14 Plt Morphology Comment Not Reportable 07/25/19 05:14 RBC Morphology Not Reportable 07/25/19 05:14 Dimorphic RBCs Not Reportable 07/25/19 05:14 Polychromasia Rare 07/25/19 05:14 Hypochromasia Rare 07/25/19 05:14 Poikilocytosis Not Reportable 07/25/19 05:14 Anisocytosis Few 07/25/19 05:14 Microcytosis Not Reportable 07/25/19 05:14 Macrocytosis Not Reportable 07/25/19 05:14 Spherocytes Not Reportable 07/25/19 05:14 Pappenheimer Bodies Not Reportable 07/25/19 05:14 Sickle Cells Not Reportable 07/25/19 05:14 Target Cells Not Reportable 07/25/19 05:14 Tear Drop Cells Not Reportable 07/25/19 05:14 Ovalocytes Not Reportable 07/25/19 05:14 Helmet Cells Not Reportable 07/25/19 05:14 Altman-Mcgill Bodies Not Reportable 07/25/19 05:14 [place] Rings Not Reportable 07/25/19 05:14 Ponce Cells Not Reportable 07/25/19 05:14 Bite Cells Not Reportable 07/25/19 05:14 Crenated Cell Not Reportable 07/25/19 05:14 Elliptocytes Rare 07/25/19 05:14 Acanthocytes (Spur) Not Reportable 07/25/19 05:14 Rouleaux Not Reportable 07/25/19 05:14 Hemoglobin C Crystals Not Reportable 07/25/19 05:14 Schistocytes Not Reportable 07/25/19 05:14 Malaria parasites Not Reportable 07/25/19 05:14 Jeevan Bodies Not Reportable 07/25/19 05:14 Hem Pathologist Commnt No 07/25/19 05:14 PT 16.0 Sec. (12.2-14.9) H 07/03/19 22:20 INR 1.26 (0.87-1.13) H 07/03/19 22:20 D-Dimer 1142.18 ng/mlDDU (0-234) H 07/08/19 00:45 ABG pH 7.364 pH Units (7.350-7.450) 07/24/19 04:40 ABG pCO2 51.1 mm Hg 07/24/19 04:40 ABG pO2 73.5 mm Hg (80.0-90.0) L 07/24/19 04:40 ABG HCO3 28.5 mmol/L (20.0-26.0) H 07/24/19 04:40 ABG O2 Saturation 94.5 % (95.0-99.0) L 07/24/19 04:40 ABG O2 Content 11.7 (0.0-44) 07/24/19 04:40 ABG Base Excess 2.6 mmol/L (-2.0-3.0) 07/24/19 04:40 ABG Hemoglobin 8.9 gm/dl (14.0-18.0) L 07/24/19 04:40 ABG Carboxyhemoglobin 1.4 % (0.0-5.0) 07/24/19 04:40 ABG Methemoglobin 0.5 % (0.0-1.5) 07/24/19 04:40 Oxyhemoglobin 92.7 % (95.0-99.0) L 07/24/19 04:40 FiO2 30 % 07/24/19 04:40 Sodium 137 mmol/L (137-145) 07/25/19 05:14 Potassium 3.8 mmol/L (3.6-5.0) 07/25/19 05:14 Chloride 103.2 mmol/L (98-107) 07/25/19 05:14 Carbon Dioxide 27 mmol/L (22-30) 07/25/19 05:14 Anion Gap 11 mmol/L 07/25/19 05:14 BUN 18 mg/dL (9-20) 07/25/19 05:14 Creatinine 0.4 mg/dL (0.8-1.5) L 07/25/19 05:14 Estimated GFR > 60 ml/min 07/25/19 05:14 BUN/Creatinine Ratio 45 % 07/25/19 05:14 Glucose 110 mg/dL (75-100) H 07/25/19 05:14 POC Glucose 107 (70-105) H 07/25/19 05:17 Osmolality 268 Mosm/kg 07/05/19 04:00 Lactic Acid 3.30 mmol/L (0.7-2.0) H* 07/04/19 07:05 Uric Acid 7.2 mg/dL (3.5-7.6) 07/05/19 04:00 Calcium 9.3 mg/dL (8.4-10.2) 07/25/19 05:14 Phosphorus 3.60 mg/dL (2.5-4.5) 07/05/19 04:00 Magnesium 1.80 mg/dL (1.7-2.3) 07/11/19 05:14 Iron 9 ug/dL (49-181) L 07/04/19 07:05 TIBC 97 mcg/dL (250-450) L 07/04/19 07:05 Ferritin 839.0 ng/mL (13.0-400.0) H 07/08/19 00:45 Total Bilirubin 0.20 mg/dL (0.1-1.2) 07/04/19 07:05 AST 73 units/L (5-40) H 07/04/19 07:05 ALT 91 units/L (7-56) H 07/04/19 07:05 Alkaline Phosphatase 114 units/L (35-129) 07/04/19 07:05 Ammonia 35.0 umol/L (25-60) 07/03/19 23:58 Lactate Dehydrogenase 277 units/L (91-180) H 07/10/19 04:00 Troponin T 0.013 ng/mL (0.00-0.029) 07/04/19 07:05 C-Reactive Protein 15.10 mg/dL (0.00-1.30) H 07/10/19 04:00 Total Protein 5.5 g/dL (6.3-8.2) L 07/04/19 07:05 Albumin 2.0 g/dL (3.9-5) L 07/04/19 07:05 Albumin/Globulin Ratio 0.6 % 07/04/19 07:05 Triglycerides 33 mg/dL (2-149) 07/03/19 19:57 Cholesterol 47 mg/dL (50-199) L 07/03/19 19:57 LDL Cholesterol Direct 25 mg/dL (50-130) L 07/03/19 19:57 HDL Cholesterol 20 mg/dL (40-59) L 07/03/19 19:57 Cholesterol/HDL Ratio 2.35 % 07/03/19 19:57 Procalcitonin 1.25 ng/mL (<0.15) 07/10/19 04:00 TSH 2.170 mlU/mL (0.270-4.200) 07/03/19 22:20 Total Cortisol 28.0 mcg/dL () 07/05/19 10:11 Urine Color Naima (Yellow) 07/03/19 21:13 Urine Turbidity Cloudy (Clear) 07/03/19 21:13 Urine pH 5.0 (5.0-7.0) 07/03/19 21:13 Ur Specific [place] 1.016 (1.003-1.030) 07/03/19 21:13 Urine Protein 30 mg/dl mg/dL (Negative) 07/03/19 21:13 Urine Glucose (UA) Neg mg/dL (Negative) 07/03/19 21:13 Urine Ketones Neg mg/dL (Negative) 07/03/19 21:13 Urine Blood Neg (Negative) 07/03/19 21:13 Urine Nitrite Neg (Negative) 07/03/19 21:13 Urine Bilirubin Neg (Negative) 07/03/19 21:13 Urine Urobilinogen 2.0 mg/dL (<2.0) 07/03/19 21:13 Ur Leukocyte Esterase Neg (Negative) 07/03/19 21:13 Urine WBC (Auto) 12.0 /HPF (0.0-6.0) H 07/03/19 21:13 Urine RBC (Auto) 6.0 /HPF (0.0-6.0) 07/03/19 21:13 U Epithel Cells (Auto) 1.0 /HPF (0-13.0) 07/03/19 21:13 Urine Bacteria (Auto) 1+ /HPF (Negative) 07/03/19 21:13 Urine WBC Clumps Few /HPF 07/03/19 21:13 Urine Mucus Few /HPF 07/03/19 21:13 Urine Osmolality 293 Mosm/kg 07/05/19 08:15 Vancomycin Trough 23.2 ug/mL (5.0-20.0) H 07/05/19 17:54 Urine Opiates Screen Presumptive negative 07/03/19 21:13 Urine Methadone Screen Presumptive negative 07/03/19 21:13 Ur Barbiturates Screen Presumptive negative 07/03/19 21:13 Ur Phencyclidine Scrn Presumptive negative 07/03/19 21:13 Ur Amphetamines Screen Presumptive negative 07/03/19 21:13 U Benzodiazepines Scrn Presumptive negative 07/03/19 21:13 Urine Cocaine Screen Presumptive negative 07/03/19 21:13 U Marijuana (THC) Screen Presumptive negative 07/03/19 21:13 Drugs of Abuse Note Disclamer 07/03/19 21:13 Plasma/Serum Alcohol < 0.01 % (0-0.07) 07/03/19 23:58 Coronavirus (PCR) Positive (Negative) A 07/04/19 10:09 Blood Type B POSITIVE 07/12/19 08:49 Antibody Screen Negative 07/12/19 08:49 Crossmatch See Detail 07/12/19 08:49 Wright/IV: Voiding Method Indwelling Catheter IV Catheter Type [Left Upper Mid-line arm] IV Catheter Type [Right INT / Saline Lock Forearm] IV Catheter Type [Right Hand] INT / Saline Lock IV Catheter Type [Right CVL Femoral] IV Catheter Type [Left INT / Saline Lock External Jugular] Active Medications - Current Medications Current Medications: Generic Name Dose Route Start Last Admin Trade Name Freq PRN Reason Stop Dose Admin Acetaminophen 650 mg 07/04/19 04:24 Tylenol DE Q6H PRN Pain MILD(1-3)/Fever >100.5/MURO Acetaminophen 650 mg 07/10/19 04:00 07/15/19 20:35 Tylenol PO 650 mg Q6HR PRN Administration Pain, Mild (1-3) FEVER Lipase/Protease/Amylase 1 each 07/04/19 10:04 07/20/19 06:15 Pancrewhitley Gilbert 10,500 Unit FEEDTUBE 1 each PRN PRN Administration For Clogged Feeding Tube Aspirin 81 mg 07/05/19 10:00 07/24/19 09:41 Baby Aspirin PO 81 mg QDAY TAMMIE Administration Dextrose 50 ml 07/04/19 06:54 D50w (25gm) Syringe IV Q30MIN PRN Hypoglycemia Protocol Docusate Sodium 100 mg 07/10/19 10:00 07/24/19 22:07 Colace PO 100 mg BID TAMMIE Administration Enoxaparin Sodium 40 mg 07/24/19 10:00 07/24/19 09:41 Enoxaparin SUB-Q 40 mg QDAY@1000 TAMMIE Administration Famotidine 20 mg 07/23/19 22:00 07/24/19 22:07 Pepcid PO 20 mg BID TAMMIE Administration Fentanyl 50 mcg 07/21/19 15:18 Sublimaze IV Q10MIN PRN ANALGESIA Folic Acid 1 mg 07/05/19 10:00 07/24/19 09:41 Folvite PO 1 mg QDAY TAMMIE Administration Hydrophilic Ointment 1 applic 07/03/19 19:56 07/05/19 17:42 Vaseline Lip Therapy TP 1 applic Q2HR PRN Administration Dry Lips Norepinephrine 4 mg in 250 mls @ 7.5 mls/hr 07/03/19 23:00 07/20/19 01:00 Levophed Drip 4 Mg/Ns 250 Ml IV Infused TITR TAMMIE Titration Protocol 2 MCG/MIN Fentanyl Citrate 2,000 mcg in 100 mls @ 4.75 mls/hr 07/21/19 16:00 07/24/19 18:49 Fentanyl Drip Premix IV 1 mcg/kg/hr TITR TAMMIE 4.75 mls/hr Administration Protocol 1 MCG/KG/HR Insulin Human Lispro 0 unit 07/07/19 12:00 07/25/19 05:57 Humalog SUB-Q Not Given Q6HR [facility] Protocol Levetiracetam 750 mg 07/06/19 11:00 07/24/19 22:07 Keppra FEEDTUBE 750 mg Q12HR TAMMIE Administration Metoprolol Tartrate 5 mg 07/12/19 15:08 07/12/19 15:30 Metoprolol IV 5 mg Q6HR PRN Administration Tachyarrhythmias Multi-Ingred Cream/Lotion/Oil/Oint 1 applic 07/03/19 19:56 07/05/19 13:19 Artificial Tears Ophth Oint OU 1 applic Q4HR PRN Administration Dry Eye(s) Naloxone HCl 0.1 mg 07/04/19 04:24 Naloxone IV Q2MIN PRN Res Rate </= 8 or 02 SAT < 92% Oxycodone/Acetaminophen 1 tab 07/19/19 14:17 Percocet 5/325 PO Q4H PRN Pain, Moderate (4-6) Scopolamine 1 each 07/10/19 11:00 07/22/19 10:30 Transderm-Scop TD 1 each Q3D TAMMIE Administration Simple Syrup 15 ml 07/04/19 10:04 07/10/19 21:56 Simple Syrup FEEDTUBE 15 ml PRN PRN Administration Hypoglycemia Simple Syrup 30 ml 07/04/19 10:04 Simple Syrup FEEDTUBE PRN PRN Hypoglycemia Sodium Bicarbonate 325 mg 07/04/19 10:04 07/20/19 10:20 Sodium Bicarbonate FEEDTUBE 325 mg PRN PRN Administration For Clogged Feeding Tube Sodium Chloride 10 ml 07/04/19 10:00 07/24/19 22:08 Sodium Chloride Flush Syringe 10 Ml IV 10 ml BID TAMMIE Administration Sodium Chloride 10 ml 07/04/19 04:24 Sodium Chloride Flush Syringe 10 Ml IV PRN PRN LINE FLUSH Sodium Hypochlorite 1 applic 07/10/19 14:00 07/24/19 22:08 Dakin's Half Strength TP 1 applicatio BID TAMMIE Administration Nutrition/Malnutrition Assess - Dietary Evaluation Nutrition/Malnutrition Findings: Nutrition Notes Start: 07/04/19 09:17 Freq: Status: Active Protocol: Document 07/23/19 16:03 RAMANDEEP (Rec: 07/23/19 16:09 [facility] SRW- [email or web address]) Nutrition Notes Initial or Follow up Reassessment Current Diagnosis Acute Kidney Injury,COPD, Decubitus(Pressure Ulcer), Diabetes,Hypertension Other Pertinent Diagnosis COVID-19 (+), pneu, seizures, schizophrenia, Buttock and R foot PU, Current Diet TF - Nepro at 45ml/hr Labs/Tests Reviewed Pertinent Medications Reviewed Height 5 ft 11 in Weight 97.2 kg [place] Body Weight (kg) 78.18 BMI 29.9 Weight change and time frame Wt change noted Subjective/Other Information RD spoke with RN via phone at 15:27. Pt tolerating TF at goal rate. Pt remains on vent support. Percent of energy/protein needs met: 100% energy 87% pro Burn Absent Trauma Absent #2 Nutrition Diagnosis Increased nutrient needs ( specify in comment below) Diagnosis Progress(for reassessment Continues documentation) #1 Nutrition Diagnosis Inadequate oral intake Diagnosis Progress(for reassessment Continues documentation) Is patient on ventilator? Yes Is Patient Ambulatory and/or Out of Bed No REE-([facility]-confined to bed) 2110.500 Additional Notes Use pro needs based on wt from previous assessment - current wt likely related to fluid retention Protein: 101-168g (1.2-2g/kg) Fluid: 1 ml/kcal or per MD Nutrition Intervention Nutrition Support: Nepro 1.8 at 45ml/hr Flush 200ml q4h Kcal 1,944 Protein (gm) 87 Fluid (mL) 785 Goal #1 TF tolerance Goal #2 TF to meet at least 75% of energy and protein needs Follow-Up By: 07/30/19 Additional Comments F/U: stable TF, vent status, wt
--- NOTE | 2019-07-25 09:14 | Progress Note ---
Assessment and Plan S/p Cardiopulmonary arrest with ROSC Severe Sepsis with septic shock. Acute hypoxemic respiratory failure on MVS COVID-19 positive with elevated markers Bilateral pneumonia Elevated LFTs. Oropharyngeal dysphagia s/p PEG Acute kidney injury Decubitus ulcers-unstageable Moderate protein calorie malnutriton [id number] metabolic acidosis Leukocytosis -improving Thrombocytosis Microcytic anemia -Contienu enoxaparin for VTE prophylaxis- currently has severe thrombocytosis -On Fentanyl infusion, wean down to 1mcg to allow for weaning trials -Will coordinate sedation interruption( RN) and SBT( RT) today to optimize chances of success with weaning trial -Continue all critical care as documented below -ABG, CXR prn - continue airborne, droplet and contact isolation for COVID-19 - continue wound care per WCT - sedation prn for target RASS 0 to -1 - continue to wean supplemental oxygen for target O2 sat's > 90% - Daily SAT's and SBT assessment as tolerated - VAP bundle addressed - continue lung protective strategies - continue bronchodilators with pulmonary hygiene per RT - wean per pulmonary driven protocols otherwise - accuchecks with glycemic control per SSI (While critically ill target blood glucose of 140-180 mg/dL; avoid hypoglycemia) - continue to avoid benzodiazepines, reduce the possibility of delirium - prn analgesia per CPOT score - Maintenance of sleep-wake cycle, avoid delirium - continue enteral nutritional support at goal rate as tolerated - VTE prophylaxis-SCDs -Stress ulcer prophylaxis- Famotidine - PT/OT/ROM exercises - continue mobility protocol, off loading and skin assessment for pressure ulcer prevention - Monitor hemodynamics closely -Wright catheter in this critically ill patient with unstageable sacral decubitus ulcer -PEG site care - continue other care per attending / other consultants - discharge planning ongoing concurrently .... Re-evaluate in am & prn CONDITION: CRITICAL PROGNOSIS: GUARDED CODE STATUS: DNAR Called his family to discuss goals of care, wants us to continue to treat aggressively at this time. The high probability of a clinically significant, sudden or life-threatening deterioration of the [respiratory & cardiovascular] system(s) required my full and direct attention, intervention and personal management. The aggregate critical care time was [31] minutes without overlap. Time includes spent on; [x] Data Review and interpretation [x] Patient assessment and monitoring of vital signs [x] Documentation [x] Medication orders and management Subjective Date of service: 07/25/19 Principal diagnosis: Bilateral pneumonia, severe sepsis with septic shock, encephalopathy Interval history: The patient is a 69-year-old male with CVA, hypertension, dementia, schizophrenia, alcohol use disorder was admitted to the emergency room after being brought in by EMS with progressive shortness of breath and unresponsiveness. He was noted to have agonal breathing and a faint pulse requiring CPR. Patient was intubated and brought to the hospital. It seems, patient was on home hospice. Currently, remains critically ill, intubated, on mechanical ventilation. His COVID test resulted positive. Patient is seen today for: s/p cardiopulmonary arrest with ROSC;Ac hypoxemic Resp failure on MVS; Severe sepsis with Shock; Bilateral Pneumonia; POSITIVE coronavirus-19 infection. Seen and examined at bedside; 24hour events reviewed; nursing and respiratory care staff consulted; no adverse overnight events reported to me; resting in bed. No reported fevers. On MVS and tolerating it well; on fentanyl at 2mcg Tolerating tube feedings, no diarrhea, Mental status changes persist, will spontaneously open eyes No fevers, Current setting AC-VC 14/500/30%/PEEP 6 Objective Vital Signs - 12hr 07/24/19 07/24/19 07/24/19 21:16 21:30 21:46 Temperature Pulse Rate 116 H 114 H 115 H Pulse Rate [ From Monitor] Respiratory 15 16 16 Rate Blood Pressure 127/69 132/72 132/72 O2 Sat by Pulse 100 100 100 Oximetry 07/24/19 07/24/19 07/24/19 22:00 22:16 22:24 Temperature Pulse Rate 116 H 118 H 115 H Pulse Rate [ From Monitor] Respiratory 15 16 15 Rate Blood Pressure 135/74 135/74 135/74 O2 Sat by Pulse 100 100 100 Oximetry 07/24/19 07/24/19 07/24/19 22:30 22:46 23:00 Temperature Pulse Rate 116 H 116 H 116 H Pulse Rate [ From Monitor] Respiratory 18 17 15 Rate Blood Pressure 135/73 135/73 133/68 O2 Sat by Pulse 100 100 100 Oximetry 07/24/19 07/24/19 07/24/19 23:16 23:30 23:46 Temperature Pulse Rate 114 H 115 H 114 H Pulse Rate [ From Monitor] Respiratory 15 15 16 Rate Blood Pressure 135/73 135/70 133/68 O2 Sat by Pulse 100 100 100 Oximetry 07/25/19 07/25/19 07/25/19 00:00 00:16 00:25 Temperature 98.6 F Pulse Rate 117 H 117 H 116 H Pulse Rate [ From Monitor] Respiratory 15 19 Rate Blood Pressure 144/74 144/74 O2 Sat by Pulse 100 100 Oximetry 07/25/19 07/25/19 07/25/19 00:27 00:30 00:33 Temperature Pulse Rate 115 H 114 H Pulse Rate [ 116 H From Monitor] Respiratory 19 16 Rate Blood Pressure 138/73 138/73 O2 Sat by Pulse 100 100 100 Oximetry 07/25/19 07/25/19 07/25/19 00:46 01:00 01:16 Temperature Pulse Rate 114 H 112 H 116 H Pulse Rate [ From Monitor] Respiratory 16 15 20 Rate Blood Pressure 138/73 139/73 139/73 O2 Sat by Pulse 100 100 100 Oximetry 07/25/19 07/25/19 07/25/19 01:30 01:46 02:00 Temperature Pulse Rate 115 H 117 H 120 H Pulse Rate [ From Monitor] Respiratory 16 17 17 Rate Blood Pressure 142/76 142/76 144/78 O2 Sat by Pulse 100 100 100 Oximetry 07/25/19 07/25/19 07/25/19 02:16 02:30 02:46 Temperature Pulse Rate 116 H 116 H 113 H Pulse Rate [ From Monitor] Respiratory 16 16 16 Rate Blood Pressure 142/76 136/70 136/70 O2 Sat by Pulse 100 100 100 Oximetry 07/25/19 07/25/19 07/25/19 03:00 03:16 03:30 Temperature Pulse Rate 112 H 115 H 114 H Pulse Rate [ From Monitor] Respiratory 17 17 17 Rate Blood Pressure 145/75 145/75 143/79 O2 Sat by Pulse 100 100 100 Oximetry 07/25/19 07/25/19 07/25/19 03:46 04:00 04:16 Temperature Pulse Rate 114 H 115 H 114 H Pulse Rate [ 118 H From Monitor] Respiratory 16 18 17 Rate Blood Pressure 143/79 147/76 147/76 O2 Sat by Pulse 100 100 100 Oximetry 07/25/19 07/25/19 07/25/19 04:30 04:46 05:00 Temperature Pulse Rate 111 H 114 H 115 H Pulse Rate [ From Monitor] Respiratory 15 16 17 Rate Blood Pressure 141/83 141/83 146/81 O2 Sat by Pulse 100 100 100 Oximetry 07/25/19 07/25/19 07/25/19 05:08 05:16 05:30 Temperature Pulse Rate 116 H 114 H 113 H Pulse Rate [ From Monitor] Respiratory 17 17 Rate Blood Pressure 146/81 146/81 144/74 O2 Sat by Pulse 100 100 100 Oximetry 07/25/19 07/25/19 07/25/19 05:46 06:00 06:16 Temperature Pulse Rate 114 H 113 H 115 H Pulse Rate [ From Monitor] Respiratory 16 17 14 Rate Blood Pressure 144/74 142/73 144/74 O2 Sat by Pulse 100 100 100 Oximetry 07/25/19 07/25/19 06:30 08:32 Temperature Pulse Rate 114 H 113 H Pulse Rate [ From Monitor] Respiratory 16 Rate Blood Pressure 141/78 150/81 O2 Sat by Pulse 100 100 Oximetry Constitutional: appears uncomfortable, other (eelderly and chronically ill looking AAM, normocep[krystina;ic with mildly increased respiratory effort at rest) Eyes: non-icteric ENT: oropharynx moist, other (ETT 24 cm RUTH) Neck: supple, no lymphadenopathy, no JVD Effort: very labored Ascultation: Bilateral: diminished breath sounds, rhonchi Percussion: Bilateral: not dull Cardiovascular: regular rate and rhythm Gastrointestinal: normoactive bowel sounds, soft, non-tender, non-distended, other (+ PEG tube with mild TF leakage) Integumentary: decubitus ulcer Extremities: no cyanosis, no edema, pink and warm, pulses normal Neurologic: unable to assess Psychiatric: other (Unable to assess re: AMS) CBC and BMP: 07/28/19 10:13 07/28/19 10:13 ABG, PT/INR, D-dimer: ABG ABG pH 7.364 pH Units (7.350-7.450) 07/24/19 04:40 ABG pCO2 51.1 mm Hg 07/24/19 04:40 ABG pO2 73.5 mm Hg (80.0-90.0) L 07/24/19 04:40 ABG O2 Saturation 94.5 % (95.0-99.0) L 07/24/19 04:40 PT/INR, D-dimer PT 16.0 Sec. (12.2-14.9) H 07/03/19 22:20 INR 1.26 (0.87-1.13) H 07/03/19 22:20 D-Dimer 1142.18 ng/mlDDU (0-234) H 07/08/19 00:45 Abnormal lab findings: Abnormal Labs 07/03/19 07/03/19 07/03/19 19:57 21:10 21:13 WBC RBC Hgb Hct MCV MCH MCHC RDW Plt Count Lymph % (Auto) [place] % (Auto) Lymph # [place] # Baso # Seg Neutrophils % Seg Neuts % (Manual) Lymphocytes % (Manual) Monocytes % (Manual) Nucleated RBC % Seg Neutrophils # Seg Neutrophils # Man Lymphocytes # (Manual) Monocytes # (Manual) PT INR D-Dimer ABG pH 7.238 L ABG pO2 210.8 H ABG HCO3 15.4 L ABG O2 Saturation 99.2 H ABG Base Excess -11.1 L ABG Hemoglobin 8.0 L Oxyhemoglobin Sodium 124 L Potassium Chloride 92.9 L Carbon Dioxide 10 L BUN 23 H Creatinine 0.5 L Glucose 118 H POC Glucose Lactic Acid Calcium 7.0 L Magnesium Iron TIBC Ferritin AST 70 H ALT 88 H Lactate Dehydrogenase Troponin T 0.032 H C-Reactive Protein Total Protein 5.0 L Albumin 1.8 L Cholesterol 47 L LDL Cholesterol Direct 25 L HDL Cholesterol 20 L Urine WBC (Auto) 12.0 H Vancomycin Trough Coronavirus (PCR) Crossmatch 07/03/19 07/03/19 07/03/19 22:20 22:20 22:20 WBC 30.5 H RBC 2.96 L Hgb 7.7 L Hct 23.9 L MCV 81 L MCH 26 L MCHC RDW 18.6 H Plt Count 459 H Lymph % (Auto) [place] % (Auto) Lymph # [place] # Baso # Seg Neutrophils % Seg Neuts % (Manual) 93.0 H Lymphocytes % (Manual) 0.5 L Monocytes % (Manual) Nucleated RBC % Seg Neutrophils # Seg Neutrophils # Man 28.4 H Lymphocytes # (Manual) 0.2 L Monocytes # (Manual) PT 16.0 H INR 1.26 H D-Dimer ABG pH ABG pO2 ABG HCO3 ABG O2 Saturation ABG Base Excess ABG Hemoglobin Oxyhemoglobin Sodium Potassium Chloride Carbon Dioxide BUN Creatinine Glucose POC Glucose Lactic Acid 6.90 H* Calcium Magnesium Iron TIBC Ferritin AST ALT Lactate Dehydrogenase Troponin T C-Reactive Protein Total Protein Albumin Cholesterol LDL Cholesterol Direct HDL Cholesterol Urine WBC (Auto) Vancomycin Trough Coronavirus (PCR) Crossmatch 07/03/19 07/04/19 07/04/19 23:58 05:15 07:05 WBC 17.1 H RBC 3.22 L Hgb 8.3 L Hct 25.4 L MCV 79 L MCH 26 L MCHC RDW 18.6 H Plt Count Lymph % (Auto) [place] % (Auto) Lymph # [place] # Baso # Seg Neutrophils % Seg Neuts % (Manual) 74.0 H Lymphocytes % (Manual) 0 L Monocytes % (Manual) Nucleated RBC % Seg Neutrophils # Seg Neutrophils # Man 12.7 H Lymphocytes # (Manual) 0.0 L Monocytes # (Manual) PT INR D-Dimer ABG pH 7.310 L ABG pO2 73.2 L ABG HCO3 17.8 L ABG O2 Saturation 93.8 L ABG Base Excess -7.7 L ABG Hemoglobin 9.6 L Oxyhemoglobin 92.3 L Sodium Potassium Chloride Carbon Dioxide BUN Creatinine Glucose POC Glucose Lactic Acid 7.10 H* Calcium Magnesium Iron TIBC Ferritin AST ALT Lactate Dehydrogenase Troponin T C-Reactive Protein Total Protein Albumin Cholesterol LDL Cholesterol Direct HDL Cholesterol Urine WBC (Auto) Vancomycin Trough Coronavirus (PCR) Crossmatch 07/04/19 07/04/19 07/04/19 07:05 07:05 07:05 WBC RBC Hgb Hct MCV MCH MCHC RDW Plt Count Lymph % (Auto) [place] % (Auto) Lymph # [place] # Baso # Seg Neutrophils % Seg Neuts % (Manual) Lymphocytes % (Manual) Monocytes % (Manual) Nucleated RBC % Seg Neutrophils # Seg Neutrophils # Man Lymphocytes # (Manual) Monocytes # (Manual) PT INR D-Dimer ABG pH ABG pO2 ABG HCO3 ABG O2 Saturation ABG Base Excess ABG Hemoglobin Oxyhemoglobin Sodium 120 L Potassium 5.1 H Chloride 90.0 L Carbon Dioxide 14 L BUN 26 H Creatinine 0.5 L Glucose POC Glucose Lactic Acid 3.30 H* Calcium 8.0 L Magnesium Iron 9 L TIBC 97 L Ferritin AST 73 H ALT 91 H Lactate Dehydrogenase Troponin T C-Reactive Protein Total Protein 5.5 L Albumin 2.0 L Cholesterol LDL Cholesterol Direct HDL Cholesterol Urine WBC (Auto) Vancomycin Trough Coronavirus (PCR) Crossmatch 07/04/19 07/04/19 07/04/19 09:39 09:39 09:39 WBC RBC Hgb Hct MCV MCH MCHC RDW Plt Count Lymph % (Auto) [place] % (Auto) Lymph # [place] # Baso # Seg Neutrophils % Seg Neuts % (Manual) Lymphocytes % (Manual) Monocytes % (Manual) Nucleated RBC % Seg Neutrophils # Seg Neutrophils # Man Lymphocytes # (Manual) Monocytes # (Manual) PT INR D-Dimer 1419.14 H ABG pH ABG pO2 ABG HCO3 ABG O2 Saturation ABG Base Excess ABG Hemoglobin Oxyhemoglobin Sodium Potassium Chloride Carbon Dioxide BUN Creatinine Glucose POC Glucose Lactic Acid Calcium Magnesium Iron TIBC Ferritin 1719.0 H AST ALT Lactate Dehydrogenase 234 H Troponin T C-Reactive Protein 15.50 H Total Protein Albumin Cholesterol LDL Cholesterol Direct HDL Cholesterol Urine WBC (Auto) Vancomycin Trough Coronavirus (PCR) Crossmatch 07/04/19 07/04/19 07/04/19 10:09 18:08 18:28 WBC RBC Hgb Hct MCV MCH MCHC RDW Plt Count Lymph % (Auto) [place] % (Auto) Lymph # [place] # Baso # Seg Neutrophils % Seg Neuts % (Manual) Lymphocytes % (Manual) Monocytes % (Manual) Nucleated RBC % Seg Neutrophils # Seg Neutrophils # Man Lymphocytes # (Manual) Monocytes # (Manual) PT INR D-Dimer ABG pH ABG pO2 ABG HCO3 ABG O2 Saturation ABG Base Excess ABG Hemoglobin Oxyhemoglobin Sodium 117 L* Potassium 5.6 H Chloride 90.3 L Carbon Dioxide 16 L BUN 28 H Creatinine 0.5 L Glucose 58 L POC Glucose 65 L Lactic Acid Calcium 8.2 L Magnesium Iron TIBC Ferritin AST ALT Lactate Dehydrogenase Troponin T C-Reactive Protein Total Protein Albumin Cholesterol LDL Cholesterol Direct HDL Cholesterol Urine WBC (Auto) Vancomycin Trough Coronavirus (PCR) Positive A Crossmatch 07/04/19 07/04/19 07/04/19 23:45 Unknown Unknown WBC RBC Hgb Hct MCV MCH MCHC RDW Plt Count Lymph % (Auto) [place] % (Auto) Lymph # [place] # Baso # Seg Neutrophils % Seg Neuts % (Manual) Lymphocytes % (Manual) Monocytes % (Manual) Nucleated RBC % Seg Neutrophils # Seg Neutrophils # Man Lymphocytes # (Manual) Monocytes # (Manual) PT INR D-Dimer 759.77 H ABG pH ABG pO2 ABG HCO3 ABG O2 Saturation ABG Base Excess ABG Hemoglobin Oxyhemoglobin Sodium 122 L Potassium Chloride 93.0 L Carbon Dioxide 19 L BUN 27 H Creatinine 0.5 L Glucose POC Glucose Lactic Acid Calcium 8.3 L Magnesium Iron TIBC Ferritin 1301.0 H AST ALT Lactate Dehydrogenase Troponin T C-Reactive Protein Total Protein Albumin Cholesterol LDL Cholesterol Direct HDL Cholesterol Urine WBC (Auto) Vancomycin Trough Coronavirus (PCR) Crossmatch 07/04/19 07/05/19 07/05/19 Unknown 03:20 04:00 WBC RBC Hgb Hct MCV MCH MCHC RDW Plt Count Lymph % (Auto) [place] % (Auto) Lymph # [place] # Baso # Seg Neutrophils % Seg Neuts % (Manual) Lymphocytes % (Manual) Monocytes % (Manual) Nucleated RBC % Seg Neutrophils # Seg Neutrophils # Man Lymphocytes # (Manual) Monocytes # (Manual) PT INR D-Dimer ABG pH ABG pO2 60.6 L ABG HCO3 ABG O2 Saturation 93.5 L ABG Base Excess -2.4 L ABG Hemoglobin 6.9 L Oxyhemoglobin 92.0 L Sodium 125 L Potassium Chloride 92.6 L Carbon Dioxide 19 L BUN 24 H Creatinine 0.6 L Glucose POC Glucose Lactic Acid Calcium 8.2 L Magnesium 1.40 L Iron TIBC Ferritin AST ALT Lactate Dehydrogenase 242 H Troponin T C-Reactive Protein 16.70 H Total Protein Albumin Cholesterol LDL Cholesterol Direct HDL Cholesterol Urine WBC (Auto) Vancomycin Trough Coronavirus (PCR) Crossmatch 07/05/19 07/05/19 07/05/19 10:11 16:15 17:54 WBC 46.4 H* RBC 2.77 L Hgb 7.2 L Hct 21.9 L MCV 79 L MCH 26 L MCHC RDW 19.0 H Plt Count Lymph % (Auto) [place] % (Auto) Lymph # [place] # Baso # Seg Neutrophils % Seg Neuts % (Manual) 82.0 H Lymphocytes % (Manual) 1.0 L Monocytes % (Manual) Nucleated RBC % Seg Neutrophils # Seg Neutrophils # Man 38.0 H Lymphocytes # (Manual) 0.5 L Monocytes # (Manual) PT INR D-Dimer ABG pH ABG pO2 ABG HCO3 ABG O2 Saturation ABG Base Excess ABG Hemoglobin Oxyhemoglobin Sodium Potassium Chloride Carbon Dioxide BUN Creatinine Glucose POC Glucose 69 L Lactic Acid Calcium Magnesium Iron TIBC Ferritin AST ALT Lactate Dehydrogenase Troponin T C-Reactive Protein Total Protein Albumin Cholesterol LDL Cholesterol Direct HDL Cholesterol Urine WBC (Auto) Vancomycin Trough 23.2 H Coronavirus (PCR) Crossmatch 07/05/19 07/06/19 07/06/19 19:58 00:27 00:27 WBC RBC Hgb Hct MCV MCH MCHC RDW Plt Count Lymph % (Auto) [place] % (Auto) Lymph # [place] # Baso # Seg Neutrophils % Seg Neuts % (Manual) Lymphocytes % (Manual) Monocytes % (Manual) Nucleated RBC % Seg Neutrophils # Seg Neutrophils # Man Lymphocytes # (Manual) Monocytes # (Manual) PT INR D-Dimer 1333.22 H ABG pH ABG pO2 ABG HCO3 ABG O2 Saturation ABG Base Excess ABG Hemoglobin Oxyhemoglobin Sodium 127 L Potassium Chloride Carbon Dioxide BUN Creatinine Glucose POC Glucose Lactic Acid Calcium Magnesium Iron TIBC Ferritin 977.1 H AST ALT Lactate Dehydrogenase Troponin T C-Reactive Protein Total Protein Albumin Cholesterol LDL Cholesterol Direct HDL Cholesterol Urine WBC (Auto) Vancomycin Trough Coronavirus (PCR) Crossmatch 07/06/19 07/06/19 07/06/19 00:27 02:00 02:56 WBC RBC Hgb Hct MCV MCH MCHC RDW Plt Count Lymph % (Auto) [place] % (Auto) Lymph # [place] # Baso # Seg Neutrophils % Seg Neuts % (Manual) Lymphocytes % (Manual) Monocytes % (Manual) Nucleated RBC % Seg Neutrophils # Seg Neutrophils # Man Lymphocytes # (Manual) Monocytes # (Manual) PT INR D-Dimer ABG pH ABG pO2 70.3 L ABG HCO3 ABG O2 Saturation 94.8 L ABG Base Excess ABG Hemoglobin 8.0 L Oxyhemoglobin 93.2 L Sodium Potassium Chloride Carbon Dioxide BUN Creatinine Glucose POC Glucose 117 H Lactic Acid Calcium Magnesium Iron TIBC Ferritin AST ALT Lactate Dehydrogenase 236 H Troponin T C-Reactive Protein 22.90 H Total Protein Albumin Cholesterol LDL Cholesterol Direct HDL Cholesterol Urine WBC (Auto) Vancomycin Trough Coronavirus (PCR) Crossmatch 07/06/19 07/06/19 07/06/19 03:49 03:49 07:40 WBC 38.8 H RBC 2.51 L Hgb 6.7 L Hct 19.9 L* MCV 79 L MCH 27 L MCHC RDW 19.2 H Plt Count Lymph % (Auto) [place] % (Auto) Lymph # [place] # Baso # Seg Neutrophils % Seg Neuts % (Manual) 90.5 H Lymphocytes % (Manual) 1.0 L Monocytes % (Manual) Nucleated RBC % Seg Neutrophils # Seg Neutrophils # Man 35.1 H Lymphocytes # (Manual) 0.4 L Monocytes # (Manual) PT INR D-Dimer ABG pH ABG pO2 ABG HCO3 ABG O2 Saturation ABG Base Excess ABG Hemoglobin Oxyhemoglobin Sodium 131 L Potassium Chloride 96.9 L Carbon Dioxide 18 L BUN 23 H Creatinine 0.5 L Glucose POC Glucose Lactic Acid Calcium 8.0 L Magnesium Iron TIBC Ferritin AST ALT Lactate Dehydrogenase Troponin T C-Reactive Protein Total Protein Albumin Cholesterol LDL Cholesterol Direct HDL Cholesterol Urine WBC (Auto) Vancomycin Trough Coronavirus (PCR) Crossmatch See Detail 07/06/19 07/06/19 07/06/19 12:38 14:39 20:00 WBC RBC Hgb Hct MCV MCH MCHC RDW Plt Count Lymph % (Auto) [place] % (Auto) Lymph # [place] # Baso # Seg Neutrophils % Seg Neuts % (Manual) Lymphocytes % (Manual) Monocytes % (Manual) Nucleated RBC % Seg Neutrophils # Seg Neutrophils # Man Lymphocytes # (Manual) Monocytes # (Manual) PT INR D-Dimer ABG pH ABG pO2 ABG HCO3 ABG O2 Saturation ABG Base Excess ABG Hemoglobin Oxyhemoglobin Sodium Potassium Chloride Carbon Dioxide BUN Creatinine Glucose POC Glucose 112 H 111 H 140 H Lactic Acid Calcium Magnesium Iron TIBC Ferritin AST ALT Lactate Dehydrogenase Troponin T C-Reactive Protein Total Protein Albumin Cholesterol LDL Cholesterol Direct HDL Cholesterol Urine WBC (Auto) Vancomycin Trough Coronavirus (PCR) Crossmatch 07/06/19 07/06/19 07/07/19 22:43 22:56 02:20 WBC RBC Hgb 7.9 L Hct 23.1 L MCV MCH MCHC RDW Plt Count Lymph % (Auto) [place] % (Auto) Lymph # [place] # Baso # Seg Neutrophils % Seg Neuts % (Manual) Lymphocytes % (Manual) Monocytes % (Manual) Nucleated RBC % Seg Neutrophils # Seg Neutrophils # Man Lymphocytes # (Manual) Monocytes # (Manual) PT INR D-Dimer ABG pH ABG pO2 ABG HCO3 ABG O2 Saturation ABG Base Excess ABG Hemoglobin Oxyhemoglobin Sodium Potassium Chloride Carbon Dioxide BUN Creatinine Glucose POC Glucose 122 H 149 H Lactic Acid Calcium Magnesium Iron TIBC Ferritin AST ALT Lactate Dehydrogenase Troponin T C-Reactive Protein Total Protein Albumin Cholesterol LDL Cholesterol Direct HDL Cholesterol Urine WBC (Auto) Vancomycin Trough Coronavirus (PCR) Crossmatch 07/07/19 07/07/19 07/07/19 04:35 05:27 05:34 WBC 23.1 H RBC 3.00 L Hgb 8.1 L Hct 24.2 L MCV 81 L MCH 27 L MCHC RDW 20.6 H Plt Count Lymph % (Auto) [place] % (Auto) Lymph # [place] # Baso # Seg Neutrophils % Seg Neuts % (Manual) 90.0 H Lymphocytes % (Manual) 2.0 L Monocytes % (Manual) Nucleated RBC % Seg Neutrophils # Seg Neutrophils # Man 20.8 H Lymphocytes # (Manual) 0.5 L Monocytes # (Manual) PT INR D-Dimer ABG pH ABG pO2 65.8 L ABG HCO3 ABG O2 Saturation 92.2 L ABG Base Excess ABG Hemoglobin 8.3 L Oxyhemoglobin 90.6 L Sodium Potassium Chloride Carbon Dioxide BUN Creatinine Glucose POC Glucose 132 H Lactic Acid Calcium Magnesium Iron TIBC Ferritin AST ALT Lactate Dehydrogenase Troponin T C-Reactive Protein Total Protein Albumin Cholesterol LDL Cholesterol Direct HDL Cholesterol Urine WBC (Auto) Vancomycin Trough Coronavirus (PCR) Crossmatch 07/07/19 07/07/19 07/07/19 05:34 11:50 15:58 WBC RBC Hgb 8.1 L Hct 24.2 L MCV MCH MCHC RDW Plt Count Lymph % (Auto) [place] % (Auto) Lymph # [place] # Baso # Seg Neutrophils % Seg Neuts % (Manual) Lymphocytes % (Manual) Monocytes % (Manual) Nucleated RBC % Seg Neutrophils # Seg Neutrophils # Man Lymphocytes # (Manual) Monocytes # (Manual) PT INR D-Dimer ABG pH ABG pO2 ABG HCO3 ABG O2 Saturation ABG Base Excess ABG Hemoglobin Oxyhemoglobin Sodium 135 L Potassium 3.3 L Chloride Carbon Dioxide 20 L BUN 27 H Creatinine 0.6 L Glucose 121 H POC Glucose 123 H Lactic Acid Calcium 8.0 L Magnesium Iron TIBC Ferritin AST ALT Lactate Dehydrogenase Troponin T C-Reactive Protein Total Protein Albumin Cholesterol LDL Cholesterol Direct HDL Cholesterol Urine WBC (Auto) Vancomycin Trough Coronavirus (PCR) Crossmatch 07/07/19 07/07/19 07/07/19 17:42 22:00 23:53 WBC RBC Hgb 8.0 L Hct 23.4 L MCV MCH MCHC RDW Plt Count Lymph % (Auto) [place] % (Auto) Lymph # [place] # Baso # Seg Neutrophils % Seg Neuts % (Manual) Lymphocytes % (Manual) Monocytes % (Manual) Nucleated RBC % Seg Neutrophils # Seg Neutrophils # Man Lymphocytes # (Manual) Monocytes # (Manual) PT INR D-Dimer ABG pH ABG pO2 ABG HCO3 ABG O2 Saturation ABG Base Excess ABG Hemoglobin Oxyhemoglobin Sodium Potassium Chloride Carbon Dioxide BUN Creatinine Glucose POC Glucose 107 H 117 H Lactic Acid Calcium Magnesium Iron TIBC Ferritin AST ALT Lactate Dehydrogenase Troponin T C-Reactive Protein Total Protein Albumin Cholesterol LDL Cholesterol Direct HDL Cholesterol Urine WBC (Auto) Vancomycin Trough Coronavirus (PCR) Crossmatch 07/08/19 07/08/19 07/08/19 00:45 00:45 00:45 WBC RBC Hgb Hct MCV MCH MCHC RDW Plt Count Lymph % (Auto) [place] % (Auto) Lymph # [place] # Baso # Seg Neutrophils % Seg Neuts % (Manual) Lymphocytes % (Manual) Monocytes % (Manual) Nucleated RBC % Seg Neutrophils # Seg Neutrophils # Man Lymphocytes # (Manual) Monocytes # (Manual) PT INR D-Dimer 1142.18 H ABG pH ABG pO2 ABG HCO3 ABG O2 Saturation ABG Base Excess ABG Hemoglobin Oxyhemoglobin Sodium Potassium Chloride Carbon Dioxide BUN Creatinine Glucose POC Glucose Lactic Acid Calcium Magnesium Iron TIBC Ferritin 839.0 H AST ALT Lactate Dehydrogenase 253 H Troponin T C-Reactive Protein 18.90 H Total Protein Albumin Cholesterol LDL Cholesterol Direct HDL Cholesterol Urine WBC (Auto) Vancomycin Trough Coronavirus (PCR) Crossmatch 07/08/19 07/08/19 07/08/19 04:30 05:11 12:02 WBC RBC Hgb Hct MCV MCH MCHC RDW Plt Count Lymph % (Auto) [place] % (Auto) Lymph # [place] # Baso # Seg Neutrophils % Seg Neuts % (Manual) Lymphocytes % (Manual) Monocytes % (Manual) Nucleated RBC % Seg Neutrophils # Seg Neutrophils # Man Lymphocytes # (Manual) Monocytes # (Manual) PT INR D-Dimer ABG pH ABG pO2 66.0 L ABG HCO3 ABG O2 Saturation 92.3 L ABG Base Excess ABG Hemoglobin 7.7 L Oxyhemoglobin 90.7 L Sodium Potassium Chloride Carbon Dioxide BUN Creatinine Glucose POC Glucose 108 H 153 H Lactic Acid Calcium Magnesium Iron TIBC Ferritin AST ALT Lactate Dehydrogenase Troponin T C-Reactive Protein Total Protein Albumin Cholesterol LDL Cholesterol Direct HDL Cholesterol Urine WBC (Auto) Vancomycin Trough Coronavirus (PCR) Crossmatch 07/08/19 07/08/19 07/08/19 16:15 18:22 23:35 WBC RBC Hgb Hct MCV MCH MCHC RDW Plt Count Lymph % (Auto) [place] % (Auto) Lymph # [place] # Baso # Seg Neutrophils % Seg Neuts % (Manual) Lymphocytes % (Manual) Monocytes % (Manual) Nucleated RBC % Seg Neutrophils # Seg Neutrophils # Man Lymphocytes # (Manual) Monocytes # (Manual) PT INR D-Dimer ABG pH ABG pO2 ABG HCO3 ABG O2 Saturation ABG Base Excess ABG Hemoglobin Oxyhemoglobin Sodium 134 L Potassium 3.3 L Chloride Carbon Dioxide 21 L BUN 27 H Creatinine 0.6 L Glucose 146 H POC Glucose 134 H 133 H Lactic Acid Calcium Magnesium Iron TIBC Ferritin AST ALT Lactate Dehydrogenase Troponin T C-Reactive Protein Total Protein Albumin Cholesterol LDL Cholesterol Direct HDL Cholesterol Urine WBC (Auto) Vancomycin Trough Coronavirus (PCR) Crossmatch 07/09/19 07/09/19 07/09/19 04:30 04:30 05:00 WBC 18.9 H RBC 2.77 L Hgb 7.4 L Hct 22.8 L MCV 82 L MCH 27 L MCHC RDW 20.9 H Plt Count 130 L Lymph % (Auto) [place] % (Auto) Lymph # [place] # Baso # Seg Neutrophils % Seg Neuts % (Manual) 84.0 H Lymphocytes % (Manual) 0 L Monocytes % (Manual) Nucleated RBC % Seg Neutrophils # Seg Neutrophils # Man 15.9 H Lymphocytes # (Manual) 0.0 L Monocytes # (Manual) PT INR D-Dimer ABG pH ABG pO2 ABG HCO3 ABG O2 Saturation ABG Base Excess ABG Hemoglobin Oxyhemoglobin Sodium Potassium 3.1 L Chloride Carbon Dioxide BUN 26 H Creatinine 0.5 L Glucose 125 H POC Glucose 155 H Lactic Acid Calcium Magnesium Iron TIBC Ferritin AST ALT Lactate Dehydrogenase Troponin T C-Reactive Protein Total Protein Albumin Cholesterol LDL Cholesterol Direct HDL Cholesterol Urine WBC (Auto) Vancomycin Trough Coronavirus (PCR) Crossmatch 07/09/19 07/09/19 07/09/19 05:55 12:22 17:50 WBC RBC Hgb Hct MCV MCH MCHC RDW Plt Count Lymph % (Auto) [place] % (Auto) Lymph # [place] # Baso # Seg Neutrophils % Seg Neuts % (Manual) Lymphocytes % (Manual) Monocytes % (Manual) Nucleated RBC % Seg Neutrophils # Seg Neutrophils # Man Lymphocytes # (Manual) Monocytes # (Manual) PT INR D-Dimer ABG pH ABG pO2 62.8 L ABG HCO3 ABG O2 Saturation ABG Base Excess ABG Hemoglobin 6.1 L Oxyhemoglobin 93.9 L Sodium Potassium Chloride Carbon Dioxide BUN Creatinine Glucose POC Glucose 115 H 133 H Lactic Acid Calcium Magnesium Iron TIBC Ferritin AST ALT Lactate Dehydrogenase Troponin T C-Reactive Protein Total Protein Albumin Cholesterol LDL Cholesterol Direct HDL Cholesterol Urine WBC (Auto) Vancomycin Trough Coronavirus (PCR) Crossmatch 07/10/19 07/10/19 07/10/19 00:38 04:00 04:00 WBC RBC Hgb Hct MCV MCH MCHC RDW Plt Count Lymph % (Auto) [place] % (Auto) Lymph # [place] # Baso # Seg Neutrophils % Seg Neuts % (Manual) Lymphocytes % (Manual) Monocytes % (Manual) Nucleated RBC % Seg Neutrophils # Seg Neutrophils # Man Lymphocytes # (Manual) Monocytes # (Manual) PT INR D-Dimer ABG pH ABG pO2 ABG HCO3 ABG O2 Saturation ABG Base Excess ABG Hemoglobin Oxyhemoglobin Sodium Potassium Chloride 107.9 H Carbon Dioxide BUN 26 H Creatinine 0.4 L Glucose 137 H POC Glucose 122 H Lactic Acid Calcium Magnesium 1.50 L Iron TIBC Ferritin AST ALT Lactate Dehydrogenase 277 H Troponin T C-Reactive Protein 15.10 H Total Protein Albumin Cholesterol LDL Cholesterol Direct HDL Cholesterol Urine WBC (Auto) Vancomycin Trough Coronavirus (PCR) Crossmatch 07/10/19 07/10/19 07/10/19 04:07 05:21 17:25 WBC RBC Hgb Hct MCV MCH MCHC RDW Plt Count Lymph % (Auto) [place] % (Auto) Lymph # [place] # Baso # Seg Neutrophils % Seg Neuts % (Manual) Lymphocytes % (Manual) Monocytes % (Manual) Nucleated RBC % Seg Neutrophils # Seg Neutrophils # Man Lymphocytes # (Manual) Monocytes # (Manual) PT INR D-Dimer ABG pH ABG pO2 65.6 L ABG HCO3 26.3 H ABG O2 Saturation ABG Base Excess ABG Hemoglobin 6.7 L Oxyhemoglobin Sodium Potassium Chloride Carbon Dioxide BUN Creatinine Glucose POC Glucose 144 H 113 H Lactic Acid Calcium Magnesium Iron TIBC Ferritin AST ALT Lactate Dehydrogenase Troponin T C-Reactive Protein Total Protein Albumin Cholesterol LDL Cholesterol Direct HDL Cholesterol Urine WBC (Auto) Vancomycin Trough Coronavirus (PCR) Crossmatch 07/11/19 07/11/19 07/11/19 00:07 05:14 05:25 WBC RBC Hgb Hct MCV MCH MCHC RDW Plt Count Lymph % (Auto) [place] % (Auto) Lymph # [place] # Baso # Seg Neutrophils % Seg Neuts % (Manual) Lymphocytes % (Manual) Monocytes % (Manual) Nucleated RBC % Seg Neutrophils # Seg Neutrophils # Man Lymphocytes # (Manual) Monocytes # (Manual) PT INR D-Dimer ABG pH ABG pO2 ABG HCO3 ABG O2 Saturation ABG Base Excess ABG Hemoglobin 5.8 L Oxyhemoglobin Sodium Potassium Chloride 108.0 H Carbon Dioxide BUN 26 H Creatinine 0.4 L Glucose 110 H POC Glucose 121 H Lactic Acid Calcium Magnesium Iron TIBC Ferritin AST ALT Lactate Dehydrogenase Troponin T C-Reactive Protein Total Protein Albumin Cholesterol LDL Cholesterol Direct HDL Cholesterol Urine WBC (Auto) Vancomycin Trough Coronavirus (PCR) Crossmatch 07/11/19 07/11/19 07/11/19 12:27 18:00 23:42 WBC RBC Hgb Hct MCV MCH MCHC RDW Plt Count Lymph % (Auto) [place] % (Auto) Lymph # [place] # Baso # Seg Neutrophils % Seg Neuts % (Manual) Lymphocytes % (Manual) Monocytes % (Manual) Nucleated RBC % Seg Neutrophils # Seg Neutrophils # Man Lymphocytes # (Manual) Monocytes # (Manual) PT INR D-Dimer ABG pH ABG pO2 ABG HCO3 ABG O2 Saturation ABG Base Excess ABG Hemoglobin Oxyhemoglobin Sodium Potassium Chloride Carbon Dioxide BUN Creatinine Glucose POC Glucose 158 H 141 H 142 H Lactic Acid Calcium Magnesium Iron TIBC Ferritin AST ALT Lactate Dehydrogenase Troponin T C-Reactive Protein Total Protein Albumin Cholesterol LDL Cholesterol Direct HDL Cholesterol Urine WBC (Auto) Vancomycin Trough Coronavirus (PCR) Crossmatch 07/12/19 07/12/19 07/12/19 04:46 04:46 05:23 WBC 23.6 H RBC 2.51 L Hgb 6.7 L Hct 20.8 L MCV 83 L MCH 27 L MCHC RDW 20.3 H Plt Count Lymph % (Auto) [place] % (Auto) Lymph # [place] # Baso # Seg Neutrophils % Seg Neuts % (Manual) 94.0 H Lymphocytes % (Manual) 4.0 L Monocytes % (Manual) Nucleated RBC % Seg Neutrophils # Seg Neutrophils # Man 22.2 H Lymphocytes # (Manual) 0.9 L Monocytes # (Manual) PT INR D-Dimer ABG pH ABG pO2 ABG HCO3 ABG O2 Saturation ABG Base Excess ABG Hemoglobin Oxyhemoglobin Sodium Potassium Chloride 107.1 H Carbon Dioxide BUN 25 H Creatinine 0.4 L Glucose 122 H POC Glucose 118 H Lactic Acid Calcium Magnesium Iron TIBC Ferritin AST ALT Lactate Dehydrogenase Troponin T C-Reactive Protein Total Protein Albumin Cholesterol LDL Cholesterol Direct HDL Cholesterol Urine WBC (Auto) Vancomycin Trough Coronavirus (PCR) Crossmatch 07/12/19 07/12/19 07/12/19 08:49 11:36 18:15 WBC RBC Hgb Hct MCV MCH MCHC RDW Plt Count Lymph % (Auto) [place] % (Auto) Lymph # [place] # Baso # Seg Neutrophils % Seg Neuts % (Manual) Lymphocytes % (Manual) Monocytes % (Manual) Nucleated RBC % Seg Neutrophils # Seg Neutrophils # Man Lymphocytes # (Manual) Monocytes # (Manual) PT INR D-Dimer ABG pH ABG pO2 ABG HCO3 ABG O2 Saturation ABG Base Excess ABG Hemoglobin Oxyhemoglobin Sodium Potassium Chloride Carbon Dioxide BUN Creatinine Glucose POC Glucose 124 H 110 H Lactic Acid Calcium Magnesium Iron TIBC Ferritin AST ALT Lactate Dehydrogenase Troponin T C-Reactive Protein Total Protein Albumin Cholesterol LDL Cholesterol Direct HDL Cholesterol Urine WBC (Auto) Vancomycin Trough Coronavirus (PCR) Crossmatch See Detail 07/12/19 07/13/19 07/13/19 23:16 05:26 06:50 WBC 23.9 H RBC 2.58 L Hgb 6.9 L Hct 21.5 L MCV 83 L MCH 27 L MCHC RDW 19.0 H Plt Count Lymph % (Auto) [place] % (Auto) Lymph # [place] # Baso # Seg Neutrophils % Seg Neuts % (Manual) 96.0 H Lymphocytes % (Manual) 3.0 L Monocytes % (Manual) Nucleated RBC % Seg Neutrophils # Seg Neutrophils # Man 22.9 H Lymphocytes # (Manual) 0.7 L Monocytes # (Manual) PT INR D-Dimer ABG pH ABG pO2 ABG HCO3 ABG O2 Saturation ABG Base Excess ABG Hemoglobin Oxyhemoglobin Sodium Potassium Chloride Carbon Dioxide BUN Creatinine Glucose POC Glucose 108 H 126 H Lactic Acid Calcium Magnesium Iron TIBC Ferritin AST ALT Lactate Dehydrogenase Troponin T C-Reactive Protein Total Protein Albumin Cholesterol LDL Cholesterol Direct HDL Cholesterol Urine WBC (Auto) Vancomycin Trough Coronavirus (PCR) Crossmatch 07/13/19 07/13/19 07/13/19 06:50 12:38 18:05 WBC RBC Hgb Hct MCV MCH MCHC RDW Plt Count Lymph % (Auto) [place] % (Auto) Lymph # [place] # Baso # Seg Neutrophils % Seg Neuts % (Manual) Lymphocytes % (Manual) Monocytes % (Manual) Nucleated RBC % Seg Neutrophils # Seg Neutrophils # Man Lymphocytes # (Manual) Monocytes # (Manual) PT INR D-Dimer ABG pH ABG pO2 ABG HCO3 ABG O2 Saturation ABG Base Excess ABG Hemoglobin Oxyhemoglobin Sodium Potassium Chloride Carbon Dioxide BUN 33 H Creatinine 0.5 L Glucose 136 H POC Glucose 164 H 145 H Lactic Acid Calcium Magnesium Iron TIBC Ferritin AST ALT Lactate Dehydrogenase Troponin T C-Reactive Protein Total Protein Albumin Cholesterol LDL Cholesterol Direct HDL Cholesterol Urine WBC (Auto) Vancomycin Trough Coronavirus (PCR) Crossmatch 07/13/19 07/14/19 07/14/19 18:30 00:21 04:40 WBC 22.9 H RBC 2.45 L Hgb 6.6 L Hct 21.1 L MCV MCH 27 L MCHC 31 L RDW 19.2 H Plt Count Lymph % (Auto) [place] % (Auto) Lymph # [place] # Baso # Seg Neutrophils % Seg Neuts % (Manual) 91.0 H Lymphocytes % (Manual) 7.0 L Monocytes % (Manual) Nucleated RBC % Seg Neutrophils # Seg Neutrophils # Man 20.8 H Lymphocytes # (Manual) Monocytes # (Manual) PT INR D-Dimer ABG pH ABG pO2 58.1 L ABG HCO3 ABG O2 Saturation 88.7 L ABG Base Excess ABG Hemoglobin 7.8 L Oxyhemoglobin 86.8 L Sodium Potassium Chloride Carbon Dioxide BUN Creatinine Glucose POC Glucose 118 H Lactic Acid Calcium Magnesium Iron TIBC Ferritin AST ALT Lactate Dehydrogenase Troponin T C-Reactive Protein Total Protein Albumin Cholesterol LDL Cholesterol Direct HDL Cholesterol Urine WBC (Auto) Vancomycin Trough Coronavirus (PCR) Crossmatch 07/14/19 07/14/19 07/14/19 04:40 05:38 05:45 WBC RBC Hgb Hct MCV MCH MCHC RDW Plt Count Lymph % (Auto) [place] % (Auto) Lymph # [place] # Baso # Seg Neutrophils % Seg Neuts % (Manual) Lymphocytes % (Manual) Monocytes % (Manual) Nucleated RBC % Seg Neutrophils # Seg Neutrophils # Man Lymphocytes # (Manual) Monocytes # (Manual) PT INR D-Dimer ABG pH 7.230 L ABG pO2 72.1 L ABG HCO3 ABG O2 Saturation 89.3 L ABG Base Excess -2.7 L ABG Hemoglobin 6.7 L Oxyhemoglobin 87.7 L Sodium Potassium Chloride 107.4 H Carbon Dioxide BUN 45 H Creatinine Glucose 101 H POC Glucose 154 H Lactic Acid Calcium Magnesium Iron TIBC Ferritin AST ALT Lactate Dehydrogenase Troponin T C-Reactive Protein Total Protein Albumin Cholesterol LDL Cholesterol Direct HDL Cholesterol Urine WBC (Auto) Vancomycin Trough Coronavirus (PCR) Crossmatch 07/14/19 07/14/19 07/14/19 12:25 18:20 19:01 WBC 22.4 H RBC 2.70 L Hgb 7.5 L Hct 23.3 L MCV MCH MCHC RDW 19.5 H Plt Count Lymph % (Auto) [place] % (Auto) Lymph # [place] # Baso # Seg Neutrophils % Seg Neuts % (Manual) Lymphocytes % (Manual) Monocytes % (Manual) Nucleated RBC % Seg Neutrophils # Seg Neutrophils # Man Lymphocytes # (Manual) Monocytes # (Manual) PT INR D-Dimer ABG pH ABG pO2 ABG HCO3 ABG O2 Saturation ABG Base Excess ABG Hemoglobin Oxyhemoglobin Sodium Potassium Chloride Carbon Dioxide BUN Creatinine Glucose POC Glucose 136 H 131 H Lactic Acid Calcium Magnesium Iron TIBC Ferritin AST ALT Lactate Dehydrogenase Troponin T C-Reactive Protein Total Protein Albumin Cholesterol LDL Cholesterol Direct HDL Cholesterol Urine WBC (Auto) Vancomycin Trough Coronavirus (PCR) Crossmatch 07/15/19 07/15/19 07/15/19 00:17 04:35 05:18 WBC 20.6 H RBC 2.41 L Hgb 6.8 L Hct 20.7 L MCV MCH MCHC RDW 20.2 H Plt Count Lymph % (Auto) [place] % (Auto) Lymph # [place] # Baso # Seg Neutrophils % Seg Neuts % (Manual) 92.0 H Lymphocytes % (Manual) 5.0 L Monocytes % (Manual) Nucleated RBC % Seg Neutrophils # Seg Neutrophils # Man 19.0 H Lymphocytes # (Manual) 1.0 L Monocytes # (Manual) PT INR D-Dimer ABG pH 7.342 L ABG pO2 ABG HCO3 ABG O2 Saturation ABG Base Excess -3.1 L ABG Hemoglobin 7.2 L Oxyhemoglobin 94.9 L Sodium Potassium Chloride Carbon Dioxide BUN Creatinine Glucose POC Glucose 116 H Lactic Acid Calcium Magnesium Iron TIBC Ferritin AST ALT Lactate Dehydrogenase Troponin T C-Reactive Protein Total Protein Albumin Cholesterol LDL Cholesterol Direct HDL Cholesterol Urine WBC (Auto) Vancomycin Trough Coronavirus (PCR) Crossmatch 07/15/19 07/15/19 07/15/19 05:18 05:57 11:28 WBC RBC Hgb Hct MCV MCH MCHC RDW Plt Count Lymph % (Auto) [place] % (Auto) Lymph # [place] # Baso # Seg Neutrophils % Seg Neuts % (Manual) Lymphocytes % (Manual) Monocytes % (Manual) Nucleated RBC % Seg Neutrophils # Seg Neutrophils # Man Lymphocytes # (Manual) Monocytes # (Manual) PT INR D-Dimer ABG pH ABG pO2 ABG HCO3 ABG O2 Saturation ABG Base Excess ABG Hemoglobin Oxyhemoglobin Sodium Potassium Chloride Carbon Dioxide 20 L BUN 59 H Creatinine Glucose 140 H POC Glucose 139 H 117 H Lactic Acid Calcium Magnesium Iron TIBC Ferritin AST ALT Lactate Dehydrogenase Troponin T C-Reactive Protein Total Protein Albumin Cholesterol LDL Cholesterol Direct HDL Cholesterol Urine WBC (Auto) Vancomycin Trough Coronavirus (PCR) Crossmatch 07/15/19 07/16/19 07/16/19 18:13 00:06 03:43 WBC RBC Hgb Hct MCV MCH MCHC RDW Plt Count Lymph % (Auto) [place] % (Auto) Lymph # [place] # Baso # Seg Neutrophils % Seg Neuts % (Manual) Lymphocytes % (Manual) Monocytes % (Manual) Nucleated RBC % Seg Neutrophils # Seg Neutrophils # Man Lymphocytes # (Manual) Monocytes # (Manual) PT INR D-Dimer ABG pH 7.344 L ABG pO2 68.6 L ABG HCO3 ABG O2 Saturation ABG Base Excess -3.5 L ABG Hemoglobin 6.1 L Oxyhemoglobin 93.3 L Sodium Potassium Chloride Carbon Dioxide BUN Creatinine Glucose POC Glucose 114 H 119 H Lactic Acid Calcium Magnesium Iron TIBC Ferritin AST ALT Lactate Dehydrogenase Troponin T C-Reactive Protein Total Protein Albumin Cholesterol LDL Cholesterol Direct HDL Cholesterol Urine WBC (Auto) Vancomycin Trough Coronavirus (PCR) Crossmatch 07/16/19 07/16/19 07/16/19 04:41 04:41 12:09 WBC 19.6 H RBC 2.81 L Hgb 7.7 L Hct 24.0 L MCV MCH 27 L MCHC RDW 19.4 H Plt Count 514 H Lymph % (Auto) 6.7 L [place] % (Auto) Lymph # [place] # 1.0 H Baso # Seg Neutrophils % 87.0 H Seg Neuts % (Manual) Lymphocytes % (Manual) Monocytes % (Manual) Nucleated RBC % Seg Neutrophils # 17.0 H Seg Neutrophils # Man Lymphocytes # (Manual) Monocytes # (Manual) PT INR D-Dimer ABG pH ABG pO2 ABG HCO3 ABG O2 Saturation ABG Base Excess ABG Hemoglobin Oxyhemoglobin Sodium Potassium 5.9 H Chloride Carbon Dioxide 21 L BUN 73 H Creatinine 2.0 H Glucose POC Glucose 141 H Lactic Acid Calcium Magnesium Iron TIBC Ferritin AST ALT Lactate Dehydrogenase Troponin T C-Reactive Protein Total Protein Albumin Cholesterol LDL Cholesterol Direct HDL Cholesterol Urine WBC (Auto) Vancomycin Trough Coronavirus (PCR) Crossmatch 07/16/19 07/16/19 07/17/19 16:19 17:45 00:16 WBC RBC Hgb Hct MCV MCH MCHC RDW Plt Count Lymph % (Auto) [place] % (Auto) Lymph # [place] # Baso # Seg Neutrophils % Seg Neuts % (Manual) Lymphocytes % (Manual) Monocytes % (Manual) Nucleated RBC % Seg Neutrophils # Seg Neutrophils # Man Lymphocytes # (Manual) Monocytes # (Manual) PT INR D-Dimer ABG pH ABG pO2 ABG HCO3 ABG O2 Saturation ABG Base Excess ABG Hemoglobin Oxyhemoglobin Sodium Potassium 5.1 H Chloride Carbon Dioxide 20 L BUN 72 H Creatinine 1.7 H Glucose 128 H POC Glucose 181 H 164 H Lactic Acid Calcium Magnesium Iron TIBC Ferritin AST ALT Lactate Dehydrogenase Troponin T C-Reactive Protein Total Protein Albumin Cholesterol LDL Cholesterol Direct HDL Cholesterol Urine WBC (Auto) Vancomycin Trough Coronavirus (PCR) Crossmatch 07/17/19 07/17/19 07/17/19 04:20 04:39 04:39 WBC 16.1 H RBC 2.92 L Hgb 8.0 L Hct 25.5 L MCV MCH MCHC 31 L RDW 19.7 H Plt Count 564 H Lymph % (Auto) 3.6 L [place] % (Auto) 7.4 H Lymph # 0.6 L [place] # 1.2 H Baso # Seg Neutrophils % 87.5 H Seg Neuts % (Manual) Lymphocytes % (Manual) Monocytes % (Manual) Nucleated RBC % Seg Neutrophils # 14.1 H Seg Neutrophils # Man Lymphocytes # (Manual) Monocytes # (Manual) PT INR D-Dimer ABG pH 7.231 L ABG pO2 95.3 H ABG HCO3 ABG O2 Saturation ABG Base Excess -5.0 L ABG Hemoglobin 7.9 L Oxyhemoglobin 94.8 L Sodium Potassium Chloride 107.8 H Carbon Dioxide 21 L BUN 68 H Creatinine Glucose POC Glucose Lactic Acid Calcium Magnesium Iron TIBC Ferritin AST ALT Lactate Dehydrogenase Troponin T C-Reactive Protein Total Protein Albumin Cholesterol LDL Cholesterol Direct HDL Cholesterol Urine WBC (Auto) Vancomycin Trough Coronavirus (PCR) Crossmatch 07/17/19 07/17/19 07/17/19 05:28 12:11 18:48 WBC RBC Hgb Hct MCV MCH MCHC RDW Plt Count Lymph % (Auto) [place] % (Auto) Lymph # [place] # Baso # Seg Neutrophils % Seg Neuts % (Manual) Lymphocytes % (Manual) Monocytes % (Manual) Nucleated RBC % Seg Neutrophils # Seg Neutrophils # Man Lymphocytes # (Manual) Monocytes # (Manual) PT INR D-Dimer ABG pH ABG pO2 ABG HCO3 ABG O2 Saturation ABG Base Excess ABG Hemoglobin Oxyhemoglobin Sodium Potassium Chloride Carbon Dioxide BUN Creatinine Glucose POC Glucose 121 H 125 H 174 H Lactic Acid Calcium Magnesium Iron TIBC Ferritin AST ALT Lactate Dehydrogenase Troponin T C-Reactive Protein Total Protein Albumin Cholesterol LDL Cholesterol Direct HDL Cholesterol Urine WBC (Auto) Vancomycin Trough Coronavirus (PCR) Crossmatch 07/17/19 07/17/19 07/18/19 19:55 23:57 02:30 WBC RBC Hgb Hct MCV MCH MCHC RDW Plt Count Lymph % (Auto) [place] % (Auto) Lymph # [place] # Baso # Seg Neutrophils % Seg Neuts % (Manual) Lymphocytes % (Manual) Monocytes % (Manual) Nucleated RBC % Seg Neutrophils # Seg Neutrophils # Man Lymphocytes # (Manual) Monocytes # (Manual) PT INR D-Dimer ABG pH 7.344 L 7.294 L ABG pO2 78.5 L 119.2 H ABG HCO3 ABG O2 Saturation ABG Base Excess -3.3 L -2.6 L ABG Hemoglobin 8.6 L 8.1 L Oxyhemoglobin 94.8 L Sodium Potassium Chloride Carbon Dioxide BUN Creatinine Glucose POC Glucose 148 H Lactic Acid Calcium Magnesium Iron TIBC Ferritin AST ALT Lactate Dehydrogenase Troponin T C-Reactive Protein Total Protein Albumin Cholesterol LDL Cholesterol Direct HDL Cholesterol Urine WBC (Auto) Vancomycin Trough Coronavirus (PCR) Crossmatch 07/18/19 07/18/19 07/18/19 04:49 05:22 05:22 WBC 15.9 H RBC 3.00 L Hgb 8.1 L Hct 26.0 L MCV MCH 27 L MCHC 31 L RDW 19.4 H Plt Count 733 H Lymph % (Auto) 6.3 L [place] % (Auto) 7.4 H Lymph # 1.0 L [place] # 1.2 H Baso # 0.2 H Seg Neutrophils % 83.8 H Seg Neuts % (Manual) Lymphocytes % (Manual) Monocytes % (Manual) Nucleated RBC % Seg Neutrophils # 13.3 H Seg Neutrophils # Man Lymphocytes # (Manual) Monocytes # (Manual) PT INR D-Dimer ABG pH ABG pO2 ABG HCO3 ABG O2 Saturation ABG Base Excess ABG Hemoglobin Oxyhemoglobin Sodium Potassium Chloride 110.6 H Carbon Dioxide BUN 61 H Creatinine Glucose 109 H POC Glucose 116 H Lactic Acid Calcium Magnesium Iron TIBC Ferritin AST ALT Lactate Dehydrogenase Troponin T C-Reactive Protein Total Protein Albumin Cholesterol LDL Cholesterol Direct HDL Cholesterol Urine WBC (Auto) Vancomycin Trough Coronavirus (PCR) Crossmatch 07/18/19 07/18/19 07/18/19 12:23 18:06 22:20 WBC RBC Hgb Hct MCV MCH MCHC RDW Plt Count Lymph % (Auto) [place] % (Auto) Lymph # [place] # Baso # Seg Neutrophils % Seg Neuts % (Manual) Lymphocytes % (Manual) Monocytes % (Manual) Nucleated RBC % Seg Neutrophils # Seg Neutrophils # Man Lymphocytes # (Manual) Monocytes # (Manual) PT INR D-Dimer ABG pH 7.338 L ABG pO2 135.1 H ABG HCO3 ABG O2 Saturation ABG Base Excess ABG Hemoglobin 9.2 L Oxyhemoglobin Sodium Potassium Chloride Carbon Dioxide BUN Creatinine Glucose POC Glucose 114 H 113 H Lactic Acid Calcium Magnesium Iron TIBC Ferritin AST ALT Lactate Dehydrogenase Troponin T C-Reactive Protein Total Protein Albumin Cholesterol LDL Cholesterol Direct HDL Cholesterol Urine WBC (Auto) Vancomycin Trough Coronavirus (PCR) Crossmatch 07/18/19 07/19/19 07/19/19 23:33 03:45 05:18 WBC RBC Hgb Hct MCV MCH MCHC RDW Plt Count Lymph % (Auto) [place] % (Auto) Lymph # [place] # Baso # Seg Neutrophils % Seg Neuts % (Manual) Lymphocytes % (Manual) Monocytes % (Manual) Nucleated RBC % Seg Neutrophils # Seg Neutrophils # Man Lymphocytes # (Manual) Monocytes # (Manual) PT INR D-Dimer ABG pH 7.342 L ABG pO2 95.0 H ABG HCO3 ABG O2 Saturation ABG Base Excess ABG Hemoglobin 8.5 L Oxyhemoglobin Sodium Potassium Chloride Carbon Dioxide BUN Creatinine Glucose POC Glucose 125 H 111 H Lactic Acid Calcium Magnesium Iron TIBC Ferritin AST ALT Lactate Dehydrogenase Troponin T C-Reactive Protein Total Protein Albumin Cholesterol LDL Cholesterol Direct HDL Cholesterol Urine WBC (Auto) Vancomycin Trough Coronavirus (PCR) Crossmatch 07/19/19 07/19/19 07/19/19 08:45 08:45 11:47 WBC 15.9 H RBC 3.31 L Hgb 9.1 L Hct 28.4 L MCV MCH 27 L MCHC RDW 19.1 H Plt Count 858 H Lymph % (Auto) 4.9 L [place] % (Auto) 8.1 H Lymph # 0.8 L [place] # 1.3 H Baso # Seg Neutrophils % 85.5 H Seg Neuts % (Manual) Lymphocytes % (Manual) Monocytes % (Manual) Nucleated RBC % Seg Neutrophils # 13.6 H Seg Neutrophils # Man Lymphocytes # (Manual) Monocytes # (Manual) PT INR D-Dimer ABG pH ABG pO2 ABG HCO3 ABG O2 Saturation ABG Base Excess ABG Hemoglobin Oxyhemoglobin Sodium Potassium Chloride 111.6 H Carbon Dioxide BUN 50 H Creatinine 0.7 L Glucose 118 H POC Glucose 114 H Lactic Acid Calcium Magnesium Iron TIBC Ferritin AST ALT Lactate Dehydrogenase Troponin T C-Reactive Protein Total Protein Albumin Cholesterol LDL Cholesterol Direct HDL Cholesterol Urine WBC (Auto) Vancomycin Trough Coronavirus (PCR) Crossmatch 07/19/19 07/19/19 07/20/19 18:25 23:44 04:39 WBC RBC Hgb Hct MCV MCH MCHC RDW Plt Count Lymph % (Auto) [place] % (Auto) Lymph # [place] # Baso # Seg Neutrophils % Seg Neuts % (Manual) Lymphocytes % (Manual) Monocytes % (Manual) Nucleated RBC % Seg Neutrophils # Seg Neutrophils # Man Lymphocytes # (Manual) Monocytes # (Manual) PT INR D-Dimer ABG pH ABG pO2 ABG HCO3 ABG O2 Saturation ABG Base Excess ABG Hemoglobin Oxyhemoglobin Sodium Potassium Chloride 110.3 H Carbon Dioxide BUN 44 H Creatinine 0.6 L Glucose 120 H POC Glucose 115 H 117 H Lactic Acid Calcium Magnesium Iron TIBC Ferritin AST ALT Lactate Dehydrogenase Troponin T C-Reactive Protein Total Protein Albumin Cholesterol LDL Cholesterol Direct HDL Cholesterol Urine WBC (Auto) Vancomycin Trough Coronavirus (PCR) Crossmatch 07/20/19 07/21/19 07/21/19 05:30 11:59 17:40 WBC RBC Hgb Hct MCV MCH MCHC RDW Plt Count Lymph % (Auto) [place] % (Auto) Lymph # [place] # Baso # Seg Neutrophils % Seg Neuts % (Manual) Lymphocytes % (Manual) Monocytes % (Manual) Nucleated RBC % Seg Neutrophils # Seg Neutrophils # Man Lymphocytes # (Manual) Monocytes # (Manual) PT INR D-Dimer ABG pH ABG pO2 ABG HCO3 ABG O2 Saturation ABG Base Excess ABG Hemoglobin Oxyhemoglobin Sodium Potassium Chloride Carbon Dioxide BUN Creatinine Glucose POC Glucose 131 H 122 H 125 H Lactic Acid Calcium Magnesium Iron TIBC Ferritin AST ALT Lactate Dehydrogenase Troponin T C-Reactive Protein Total Protein Albumin Cholesterol LDL Cholesterol Direct HDL Cholesterol Urine WBC (Auto) Vancomycin Trough Coronavirus (PCR) Crossmatch 07/22/19 07/22/19 07/22/19 05:38 05:38 12:29 WBC 12.6 H RBC 3.19 L Hgb 8.9 L Hct 27.5 L MCV MCH MCHC RDW 18.9 H Plt Count 1101 H* Lymph % (Auto) [place] % (Auto) 12.2 H Lymph # [place] # 1.5 H Baso # Seg Neutrophils % 72.8 H Seg Neuts % (Manual) 76.0 H Lymphocytes % (Manual) 7.0 L Monocytes % (Manual) 14.0 H Nucleated RBC % 1.0 H Seg Neutrophils # 9.2 H Seg Neutrophils # Man 9.6 H Lymphocytes # (Manual) 0.9 L Monocytes # (Manual) 1.8 H PT INR D-Dimer ABG pH ABG pO2 ABG HCO3 ABG O2 Saturation ABG Base Excess ABG Hemoglobin Oxyhemoglobin Sodium Potassium 3.4 L Chloride Carbon Dioxide BUN 29 H Creatinine 0.5 L Glucose POC Glucose 116 H Lactic Acid Calcium Magnesium Iron TIBC Ferritin AST ALT Lactate Dehydrogenase Troponin T C-Reactive Protein Total Protein Albumin Cholesterol LDL Cholesterol Direct HDL Cholesterol Urine WBC (Auto) Vancomycin Trough Coronavirus (PCR) Crossmatch 07/22/19 07/22/19 07/23/19 18:20 23:51 04:52 WBC RBC Hgb Hct MCV MCH MCHC RDW Plt Count Lymph % (Auto) [place] % (Auto) Lymph # [place] # Baso # Seg Neutrophils % Seg Neuts % (Manual) Lymphocytes % (Manual) Monocytes % (Manual) Nucleated RBC % Seg Neutrophils # Seg Neutrophils # Man Lymphocytes # (Manual) Monocytes # (Manual) PT INR D-Dimer ABG pH ABG pO2 ABG HCO3 ABG O2 Saturation ABG Base Excess ABG Hemoglobin Oxyhemoglobin Sodium Potassium Chloride Carbon Dioxide BUN 24 H Creatinine 0.4 L Glucose POC Glucose 107 H 110 H Lactic Acid Calcium Magnesium Iron TIBC Ferritin AST ALT Lactate Dehydrogenase Troponin T C-Reactive Protein Total Protein Albumin Cholesterol LDL Cholesterol Direct HDL Cholesterol Urine WBC (Auto) Vancomycin Trough Coronavirus (PCR) Crossmatch 07/23/19 07/23/19 07/24/19 06:00 23:15 04:40 WBC RBC Hgb Hct MCV MCH MCHC RDW Plt Count Lymph % (Auto) [place] % (Auto) Lymph # [place] # Baso # Seg Neutrophils % Seg Neuts % (Manual) Lymphocytes % (Manual) Monocytes % (Manual) Nucleated RBC % Seg Neutrophils # Seg Neutrophils # Man Lymphocytes # (Manual) Monocytes # (Manual) PT INR D-Dimer ABG pH ABG pO2 73.5 L ABG HCO3 27.0 H 28.5 H ABG O2 Saturation 94.5 L ABG Base Excess ABG Hemoglobin 9.4 L 8.9 L Oxyhemoglobin 94.0 L 92.7 L Sodium Potassium Chloride Carbon Dioxide BUN Creatinine Glucose POC Glucose 117 H Lactic Acid Calcium Magnesium Iron TIBC Ferritin AST ALT Lactate Dehydrogenase Troponin T C-Reactive Protein Total Protein Albumin Cholesterol LDL Cholesterol Direct HDL Cholesterol Urine WBC (Auto) Vancomycin Trough Coronavirus (PCR) Crossmatch 07/24/19 07/24/19 07/25/19 05:25 12:06 00:16 WBC RBC Hgb Hct MCV MCH MCHC RDW Plt Count Lymph % (Auto) [place] % (Auto) Lymph # [place] # Baso # Seg Neutrophils % Seg Neuts % (Manual) Lymphocytes % (Manual) Monocytes % (Manual) Nucleated RBC % Seg Neutrophils # Seg Neutrophils # Man Lymphocytes # (Manual) Monocytes # (Manual) PT INR D-Dimer ABG pH ABG pO2 ABG HCO3 ABG O2 Saturation ABG Base Excess ABG Hemoglobin Oxyhemoglobin Sodium Potassium Chloride Carbon Dioxide BUN Creatinine Glucose POC Glucose 114 H 108 H 106 H Lactic Acid Calcium Magnesium Iron TIBC Ferritin AST ALT Lactate Dehydrogenase Troponin T C-Reactive Protein Total Protein Albumin Cholesterol LDL Cholesterol Direct HDL Cholesterol Urine WBC (Auto) Vancomycin Trough Coronavirus (PCR) Crossmatch 07/25/19 07/25/19 07/25/19 05:14 05:14 05:17 WBC 17.8 H RBC 3.32 L Hgb 9.2 L Hct 28.6 L MCV MCH MCHC RDW 19.9 H Plt Count 994 H Lymph % (Auto) [place] % (Auto) Lymph # [place] # Baso # Seg Neutrophils % Seg Neuts % (Manual) 82.0 H Lymphocytes % (Manual) 5.0 L Monocytes % (Manual) Nucleated RBC % Seg Neutrophils # Seg Neutrophils # Man 14.6 H Lymphocytes # (Manual) 0.9 L Monocytes # (Manual) 1.2 H PT INR D-Dimer ABG pH ABG pO2 ABG HCO3 ABG O2 Saturation ABG Base Excess ABG Hemoglobin Oxyhemoglobin Sodium Potassium Chloride Carbon Dioxide BUN Creatinine 0.4 L Glucose 110 H POC Glucose 107 H Lactic Acid Calcium Magnesium Iron TIBC Ferritin AST ALT Lactate Dehydrogenase Troponin T C-Reactive Protein Total Protein Albumin Cholesterol LDL Cholesterol Direct HDL Cholesterol Urine WBC (Auto) Vancomycin Trough Coronavirus (PCR) Crossmatch Allied health notes reviewed: nursing
[2019-07-25] MEDS: FAMOTIDINE 20 MG TAB PO SCH ×2 (11:49→21:42)
[2019-07-25] MEDS: levETIRAcetam 500 MG/5 ML ORAL LIQD FEEDTUBE SCH ×2 (11:49→21:42)
[2019-07-25] MEDS: ENOXAPARIN 40 MG/0.4 ML INJ SUB-Q SCH (11:49)
[2019-07-25] MEDS: DOCUSATE SODIUM 100 MG/10 ML ORAL LIQD PO SCH ×2 (11:49→21:42)
[2019-07-25] MEDS: FOLIC ACID 1 MG TAB PO SCH (11:50)
[2019-07-25] MEDS: ASPIRIN 81 MG TAB CHEW PO SCH (11:50)
[2019-07-25] MEDS: SODIUM HYPOCHLORITE, DAKIN'S 1/2 STRENGTH (0.25%) 473 ML TOPICAL SOLN TP SCH (11:51)
[2019-07-25] MEDS: SCOPOLAMINE TRANSDERMAL PATCH 72 HR TD SCH (11:51)
--- NOTE | 2019-07-25 15:38 | Progress Note ---
Assessment and Plan Cultures: 07/03/2019 urine culture: No growth 07/03/2019 Tracheal aspirate: E.coli A/P: 69-year-old male with CVA, hypertension, dementia, schizophrenia, alcohol use disorder was admitted to the emergency room after being brought in by EMS with progressive shortness of breath and unresponsiveness. He was noted to have agonal breathing and a faint pulse requiring CPR. It seems patient was on hospice recently. #Shock, likely septic: Lactic acidosis. Remains off pressors. #Severe COVID-19 disease and pneumonia: Elevated markers. Completed Plaquenil. Completed Ceftriaxone for treatment E.coli in tracheal aspirate. #Acute respiratory failure: on mechanical ventilation. #Transaminitis: Likely from COVID-19, shock #Leucocytosis: ?reactive from above. Recs: continue supportive care for COVID-19 agree with DNR. Poor prognosis. Ordered procal for AM labs. Mekhi Barboza MD [facility] ([facility]) M: [phone] O: [phone] F: [phone] Subjective Date of service: 07/25/19 Principal diagnosis: Bilateral pneumonia, severe sepsis with septic shock, encephalopathy Interval history: Afebrile, no acute change today. Remains in the ICU. White count somewhat increased Objective - Exam Narrative Exam: Physical Exam (reviewed in chart due to PPE conservation) Constitutional: intubated, sedated, on the vent Head, Ears, Nose: normocephalic, atraumatic Eyes: limited due to PPE conservation strategy Neck: intubated Oral: intubated Cardiovascular: limited due to PPE conservation strategy Respiratory: limited due to PPE conservation strategy GI: limited due to PPE conservation strategy Musculoskeletal: limited due to PPE conservation strategy Skin: limited due to PPE conservation strategy Hem/Lymphatic: limited due to PPE conservation strategy Psych: no agitation Neurological: sedated, intubated, on the vent, exam limited - Constitutional Vitals: Vital Signs Temp Pulse Resp BP Pulse Ox 98.0 F 116 H 24 126/75 100 07/25/19 12:00 07/25/19 14:36 07/25/19 12:41 07/25/19 14:36 07/25/19 14:36 Temperature -Last 24 Hours Temperature 98.0 F Temperature 98.6 F Temperature 98.8 F Temperature 97.7 F - Labs CBC & Chem 7: 07/25/19 05:14 07/25/19 05:14 Labs: Abnormal lab results 07/24/19 07/25/19 07/25/19 Range/Units 12:06 00:16 05:14 WBC (4.5-11.0) K/mm3 RBC (3.65-5.03) M/mm3 Hgb (11.8-15.2) gm/dl Hct (35.5-45.6) % RDW (13.2-15.2) % Plt Count (140-440) K/mm3 Seg Neuts % (Manual) (40.0-70.0) % Lymphocytes % (Manual) (13.4-35.0) % Seg Neutrophils # Man (1.8-7.7) K/mm3 Lymphocytes # (Manual) (1.2-5.4) K/mm3 Monocytes # (Manual) (0.0-0.8) K/mm3 Creatinine 0.4 L (0.8-1.5) mg/dL Glucose 110 H (75-100) mg/dL POC Glucose 108 H 106 H (70-105) 07/25/19 07/25/19 07/25/19 Range/Units 05:14 05:17 11:55 WBC 17.8 H (4.5-11.0) K/mm3 RBC 3.32 L (3.65-5.03) M/mm3 Hgb 9.2 L (11.8-15.2) gm/dl Hct 28.6 L (35.5-45.6) % RDW 19.9 H (13.2-15.2) % Plt Count 994 H (140-440) K/mm3 Seg Neuts % (Manual) 82.0 H (40.0-70.0) % Lymphocytes % (Manual) 5.0 L (13.4-35.0) % Seg Neutrophils # Man 14.6 H (1.8-7.7) K/mm3 Lymphocytes # (Manual) 0.9 L (1.2-5.4) K/mm3 Monocytes # (Manual) 1.2 H (0.0-0.8) K/mm3 Creatinine (0.8-1.5) mg/dL Glucose (75-100) mg/dL POC Glucose 107 H 123 H (70-105)
[2019-07-25] MEDS: fentaNYL DRIP Premix 2,000 MCG/100 ML BAG IV SCH (18:22)
[2019-07-26] MEDS: INSULIN LISPRO 100 UNIT/ML SUB-Q SCH ×4 (00:22→17:16)
[2019-07-26] MEDS: SODIUM HYPOCHLORITE, DAKIN'S 1/2 STRENGTH (0.25%) 473 ML TOPICAL SOLN TP SCH ×3 (04:42→22:00)
--- NOTE | 2019-07-26 07:39 | Progress Note ---
Assessment and Plan Assessment and plan: 69-year-old male patient with PMH of CVA with RHP, HTN, DM2, SCZ, Dementia, Alcohol use D/o, Seizure D/O, presents to the emergency department via EMS from home with progressive SOB and impending espiratory failure with an unresponsive . PT was intubated was admitted through emergency room to ICU treated for sepsis, b/l PNA, acute respiratory failure received antibiotics. Patient was tested positive for COVID19. Evaluated by ID , received antibiotics Plaquenil, and inflammatory markers were checked and followed. Patient was hypotensive requiring Levophed, continues to be hypotensive currently on Levophed, unable to wean remains intubated on ventilatory support, critically ill, DNR status howev er family wants full treatment. --COVid-19 infection with pneumonia with severe sepsis Received Plaquenil and cefepime, monitor off antibiotics ID following --Septic shock: On Levophed Persistent hypotension, titrate to systolic blood pressure more than 100 -- Acute respiratory Failure with Hypoxia Due to bilateral PNA with COVID 19 infection. On ventilatory support, unable to wean Pulmonary critical following --COPD with exacerbation Likely due to COVID-19 pneumonia Continue scheduled nebs --Anemia, Microcytic persistent s/p total 3 unit of PRBC, today Hb today 9.1 --Pressure Ulcers: POA buttocks, right lateral foot area wound and supportive care --Hyponatremia, resolved --DM type 2: Accu-Chek SCC tube feeding, insulin as needed --h/o HTN Essential, now hypotensive On Levophed --Seizure D/o/CVA/immobility/BIpolar D/o/SCZ Seizure precautions, antiepileptic medications --Severe PCM, TF supportive care, dietary following patient is DNR- Called and verified information Very poor prognosis, Recommend hospice 07/04: COVID +ve, start on plaquinil, called no answer 07/05: transfuse one unit PRBC, Hb dropped to ~6, called and updated 07/06; H&H stable, serum chemistry improved. On mechanical ventilation with high inflammatory markers. Continue Plaquenil and empiric antibiotics. ID following, prognosis remains guarded and extremely poor. 07/07: On mechanical ventilation with high inflammatory markers. Continue Plaquenil and empiric antibiotics. ID following, prognosis remains guarded and extremely poor. 07/08: Called today and verified the CODE STATUS. Patient remains DNR. He is still intubated, with poor prognosis. Continue to follow inflammatory markers. 07/09 wean off from vent as tolerated, completed empiric antibiotic and Plaqu enil 07/10 wean off from vent as tolerated. poor prognosis 07/11 hb 6.7 today, transfuse one PRBC. wean off from vent as tolerated. poor prognosis 07/12 remains critically on vent. Hb 6.9 07/13 Hb dropped to 6.6, transfuse 1 unit of PRBC, remains on vent critically ill Hypotensive, fluid bolus, if no improvement start Levophed 07/14; remains anemic with hemoglobin of 6.8, received total 3 units of PRBC Additional 1 unit of PRBC today, stool for occult blood to rule out GI causes Started back on Levophed due to hypotension 07/15; patient remains critically ill, hypotensive on Levophed 07/16: Today remains intubated on vent, persistent hypotension on Levophed 07/17; clinically no change, pressor dependent[on Levophed] DNR status 07/18: Patient remains hypotensive requiring Levophed, intubated on vent Unable to wean, critically ill. DNR 07/20/2019 Patient remains hypotensive requiring Levophed, intubated on vent. Patient currently with AC mode ventilation, rate 20, tidal volume 500, FiO2 40% and PEEP 6. Patient is a poor prognosis and apparently was on hospice recently. 07/21/2019. Patient with PEG tube that was clogged yesterday. surgery evaluated the patient and noted Very long PEG tubing with thick material inside. The entire tube was stripped and a large amount of formed tube feed was expressed. The tube was then flushed with sprite and flushed easily. Tube clamped. Patient currently with AC mode ventilation, rate 20, tidal volume 500, FiO2 40% and PEEP 6. Patient is a poor prognosis and apparently was on hospice recently. 07/22/2019. Patient currently with AC mode ventilation, rate 20, tidal volume 500, FiO2 30% and PEEP 6. Patient on sedation with fentanyl drip. Continue Levophed to maintain MAP greater than 65. Patient is a poor prognosis and apparently was on hospice recently. 07/23/2019. Patient currently with AC mode ventilation, rate 20, tidal volume 500, FiO2 30% and PEEP 6. Patient on sedation with fentanyl drip. Continue Levophed to maintain MAP greater than 65. Patient is a poor prognosis and apparently was on hospice recently. 07/24/2019 Patient with Covid-19 infection with pneumonia, acute respiratory failure, intubated on ventilator. No more fever. Continue current management. 07/25/2019 Patient with Covid-19 infection with pneumonia, acute respiratory fail ure, intubated on ventilator. fever is now resolved. Sedated with propofol 07/26/2019 Patient with covid-19 infection. Still intubated, on vent. The high probability of a clinically significant, sudden or life threatening deterioration of the [respiratory, CVS, [employer]] system(s) required my full and direct attention, intervention and personal management. The aggregate critical care time was [33] minutes. This time is in addition to time spent performing reported procedures but includes the foll owing: [x] Data Review and interpretation [x] Patient assessment and monitoring of vital signs [x] Documentation [x] Medication orders and management History Interval history: Patient with Covid-19 infection Still intubated No more fever Hospitalist Physical - Physical exam Narrative exam: GEN: Not in acute distress, intubated,obese HEENT: Normocephalic, atraumatic, Neck: supple, No JVD Lungs: Bilateral crackles, heart;S1 and S2 reg, no murmurs, rubs or gallop Abd:soft, non tender, non distended, normal bowel sounds,PEG tube Ext: No edema, no clubbing, no cyanosis, Neuro: Intubated, on ventilator,sedated - Constitutional Vitals: Temp Pulse Resp BP Pulse Ox 97.8 F 106 H 16 140/75 98 07/26/19 04:00 07/26/19 06:00 07/26/19 06:00 07/26/19 06:00 07/26/19 06:00 General appearance: Present: no acute distress, well-nourished, other (Orally intubated on vent) Results - Labs CBC & Chem 7: 07/25/19 05:14 07/25/19 05:14 Labs: Laboratory Last Values WBC 17.8 K/mm3 (4.5-11.0) H 07/25/19 05:14 RBC 3.32 M/mm3 (3.65-5.03) L 07/25/19 05:14 Hgb 9.2 gm/dl (11.8-15.2) L 07/25/19 05:14 Hct 28.6 % (35.5-45.6) L 07/25/19 05:14 MCV 86 fl (84-94) 07/25/19 05:14 MCH 28 pg (28-32) 07/25/19 05:14 MCHC 32 % (32-34) 07/25/19 05:14 RDW 19.9 % (13.2-15.2) H 07/25/19 05:14 Plt Count 994 K/mm3 (140-440) H 07/25/19 05:14 Lymph % (Auto) 4.9 % (13.4-35.0) L 07/19/19 08:45 [place] % (Auto) 12.2 % (0.0-7.3) H 07/22/19 05:38 Eos % (Auto) 1.0 % (0.0-4.3) 07/19/19 08:45 Baso % (Auto) 0.5 % (0.0-1.8) 07/19/19 08:45 Lymph # 0.8 K/mm3 (1.2-5.4) L 07/19/19 08:45 [place] # 1.5 K/mm3 (0.0-0.8) H 07/22/19 05:38 Eos # 0.2 K/mm3 (0.0-0.4) 07/19/19 08:45 Baso # 0.1 K/mm3 (0.0-0.1) 07/19/19 08:45 Add Manual Diff Complete 07/25/19 05:14 Total Counted 100 07/25/19 05:14 Seg Neutrophils % 72.8 % (40.0-70.0) H 07/22/19 05:38 Seg Neuts % (Manual) 82.0 % (40.0-70.0) H 07/25/19 05:14 Band Neutrophils % 3.0 % 07/25/19 05:14 Lymphocytes % (Manual) 5.0 % (13.4-35.0) L 07/25/19 05:14 Reactive Lymphs % (Man) 0 % 07/25/19 05:14 Monocytes % (Manual) 7.0 % (0.0-7.3) 07/25/19 05:14 Eosinophils % (Manual) 2.0 % (0.0-4.3) 07/25/19 05:14 Basophils % (Manual) 0 % (0.0-1.8) 07/25/19 05:14 Metamyelocytes % 1.0 % 07/25/19 05:14 Myelocytes % 0 % 07/25/19 05:14 Promyelocytes % 0 % 07/25/19 05:14 Blast Cells % 0 % 07/25/19 05:14 Nucleated RBC % Not Reportable 07/25/19 05:14 Seg Neutrophils # 9.2 K/mm3 (1.8-7.7) H 07/22/19 05:38 Seg Neutrophils # Man 14.6 K/mm3 (1.8-7.7) H 07/25/19 05:14 Band Neutrophils # 0.5 K/mm3 07/25/19 05:14 Lymphocytes # (Manual) 0.9 K/mm3 (1.2-5.4) L 07/25/19 05:14 Abs React Lymphs (Man) 0.0 K/mm3 07/25/19 05:14 Monocytes # (Manual) 1.2 K/mm3 (0.0-0.8) H 07/25/19 05:14 Eosinophils # (Manual) 0.4 K/mm3 (0.0-0.4) 07/25/19 05:14 Basophils # (Manual) 0.0 K/mm3 (0.0-0.1) 07/25/19 05:14 Metamyelocytes # 0.2 K/mm3 07/25/19 05:14 Myelocytes # 0.0 K/mm3 07/25/19 05:14 Promyelocytes # 0.0 K/mm3 07/25/19 05:14 Blast Cells # 0.0 K/mm3 07/25/19 05:14 WBC Morphology Not Reportable 07/25/19 05:14 Hypersegmented Neuts Not Reportable 07/25/19 05:14 Hyposegmented Neuts Not Reportable 07/25/19 05:14 Hypogranular Neuts Not Reportable 07/25/19 05:14 Smudge Cells Not Reportable 07/25/19 05:14 Toxic Granulation Not Reportable 07/25/19 05:14 Toxic Vacuolation Not Reportable 07/25/19 05:14 Dohle Bodies Not Reportable 07/25/19 05:14 Pelger-Huet Anomaly Not Reportable 07/25/19 05:14 Mendy Rods Not Reportable 07/25/19 05:14 Platelet Estimate Consistent w auto 07/25/19 05:14 Clumped Platelets Not Reportable 07/25/19 05:14 Plt Clumps, EDTA Not Reportable 07/25/19 05:14 Large Platelets Not Reportable 07/25/19 05:14 Giant Platelets Not Reportable 07/25/19 05:14 Platelet Satelliting Not Reportable 07/25/19 05:14 Plt Morphology Comment Not Reportable 07/25/19 05:14 RBC Morphology Not Reportable 07/25/19 05:14 Dimorphic RBCs Not Reportable 07/25/19 05:14 Polychromasia Rare 07/25/19 05:14 Hypochromasia Rare 07/25/19 05:14 Poikilocytosis Not Reportable 07/25/19 05:14 Anisocytosis Few 07/25/19 05:14 Microcytosis Not Reportable 07/25/19 05:14 Macrocytosis Not Reportable 07/25/19 05:14 Spherocytes Not Reportable 07/25/19 05:14 Pappenheimer Bodies Not Reportable 07/25/19 05:14 Sickle Cells Not Reportable 07/25/19 05:14 Target Cells Not Reportable 07/25/19 05:14 Tear Drop Cells Not Reportable 07/25/19 05:14 Ovalocytes Not Reportable 07/25/19 05:14 Helmet Cells Not Reportable 07/25/19 05:14 [place] Bodies Not Reportable 07/25/19 05:14 Lismore Rings Not Reportable 07/25/19 05:14 Joanne Cells Not Reportable 07/25/19 05:14 Bite Cells Not Reportable 07/25/19 05:14 Crenated Cell Not Reportable 07/25/19 05:14 Elliptocytes Rare 07/25/19 05:14 Acanthocytes (Spur) Not Reportable 07/25/19 05:14 Rouleaux Not Reportable 07/25/19 05:14 Hemoglobin C Crystals Not Reportable 07/25/19 05:14 Schistocytes Not Reportable 07/25/19 05:14 Malaria parasites Not Reportable 07/25/19 05:14 Jeevan Bodies Not Reportable 07/25/19 05:14 Hem Pathologist Commnt No 07/25/19 05:14 PT 16.0 Sec. (12.2-14.9) H 07/03/19 22:20 INR 1.26 (0.87-1.13) H 07/03/19 22:20 D-Dimer 1142.18 ng/mlDDU (0-234) H 07/08/19 00:45 ABG pH 7.364 pH Units (7.350-7.450) 07/24/19 04:40 ABG pCO2 51.1 mm Hg 07/24/19 04:40 ABG pO2 73.5 mm Hg (80.0-90.0) L 07/24/19 04:40 ABG HCO3 28.5 mmol/L (20.0-26.0) H 07/24/19 04:40 ABG O2 Saturation 94.5 % (95.0-99.0) L 07/24/19 04:40 ABG O2 Content 11.7 (0.0-44) 07/24/19 04:40 ABG Base Excess 2.6 mmol/L (-2.0-3.0) 07/24/19 04:40 ABG Hemoglobin 8.9 gm/dl (14.0-18.0) L 07/24/19 04:40 ABG Carboxyhemoglobin 1.4 % (0.0-5.0) 07/24/19 04:40 ABG Methemoglobin 0.5 % (0.0-1.5) 07/24/19 04:40 Oxyhemoglobin 92.7 % (95.0-99.0) L 07/24/19 04:40 FiO2 30 % 07/24/19 04:40 Sodium 137 mmol/L (137-145) 07/25/19 05:14 Potassium 3.8 mmol/L (3.6-5.0) 07/25/19 05:14 Chloride 103.2 mmol/L (98-107) 07/25/19 05:14 Carbon Dioxide 27 mmol/L (22-30) 07/25/19 05:14 Anion Gap 11 mmol/L 07/25/19 05:14 BUN 18 mg/dL (9-20) 07/25/19 05:14 Creatinine 0.4 mg/dL (0.8-1.5) L 07/25/19 05:14 Estimated GFR > 60 ml/min 07/25/19 05:14 BUN/Creatinine Ratio 45 % 07/25/19 05:14 Glucose 110 mg/dL (75-100) H 07/25/19 05:14 POC Glucose 106 (70-105) H 07/26/19 06:01 Osmolality 268 Mosm/kg 07/05/19 04:00 Lactic Acid 3.30 mmol/L (0.7-2.0) H* 07/04/19 07:05 Uric Acid 7.2 mg/dL (3.5-7.6) 07/05/19 04:00 Calcium 9.3 mg/dL (8.4-10.2) 07/25/19 05:14 Phosphorus 3.60 mg/dL (2.5-4.5) 07/05/19 04:00 Magnesium 1.80 mg/dL (1.7-2.3) 07/11/19 05:14 Iron 9 ug/dL (49-181) L 07/04/19 07:05 TIBC 97 mcg/dL (250-450) L 07/04/19 07:05 Ferritin 839.0 ng/mL (13.0-400.0) H 07/08/19 00:45 Total Bilirubin 0.20 mg/dL (0.1-1.2) 07/04/19 07:05 AST 73 units/L (5-40) H 07/04/19 07:05 ALT 91 units/L (7-56) H 07/04/19 07:05 Alkaline Phosphatase 114 units/L (35-129) 07/04/19 07:05 Ammonia 35.0 umol/L (25-60) 07/03/19 23:58 Lactate Dehydrogenase 277 units/L (91-180) H 07/10/19 04:00 Troponin T 0.013 ng/mL (0.00-0.029) 07/04/19 07:05 C-Reactive Protein 15.10 mg/dL (0.00-1.30) H 07/10/19 04:00 Total Protein 5.5 g/dL (6.3-8.2) L 07/04/19 07:05 Albumin 2.0 g/dL (3.9-5) L 07/04/19 07:05 Albumin/Globulin Ratio 0.6 % 07/04/19 07:05 Triglycerides 33 mg/dL (2-149) 07/03/19 19:57 Cholesterol 47 mg/dL (50-199) L 07/03/19 19:57 LDL Cholesterol Direct 25 mg/dL (50-130) L 07/03/19 19:57 HDL Cholesterol 20 mg/dL (40-59) L 07/03/19 19:57 Cholesterol/HDL Ratio 2.35 % 07/03/19 19:57 Procalcitonin 1.25 ng/mL (<0.15) 07/10/19 04:00 TSH 2.170 mlU/mL (0.270-4.200) 07/03/19 22:20 Total Cortisol 28.0 mcg/dL () 07/05/19 10:11 Urine Color Naima (Yellow) 07/03/19 21:13 Urine Turbidity Cloudy (Clear) 07/03/19 21:13 Urine pH 5.0 (5.0-7.0) 07/03/19 21:13 Ur Specific [place] 1.016 (1.003-1.030) 07/03/19 21:13 Urine Protein 30 mg/dl mg/dL (Negative) 07/03/19 21:13 Urine Glucose (UA) Neg mg/dL (Negative) 07/03/19 21:13 Urine Ketones Neg mg/dL (Negative) 07/03/19 21:13 Urine Blood Neg (Negative) 07/03/19 21:13 Urine Nitrite Neg (Negative) 07/03/19 21:13 Urine Bilirubin Neg (Negative) 07/03/19 21:13 Urine Urobilinogen 2.0 mg/dL (<2.0) 07/03/19 21:13 Ur Leukocyte Esterase Neg (Negative) 07/03/19 21:13 Urine WBC (Auto) 12.0 /HPF (0.0-6.0) H 07/03/19 21:13 Urine RBC (Auto) 6.0 /HPF (0.0-6.0) 07/03/19 21:13 U Epithel Cells (Auto) 1.0 /HPF (0-13.0) 07/03/19 21:13 Urine Bacteria (Auto) 1+ /HPF (Negative) 07/03/19 21:13 Urine WBC Clumps Few /HPF 07/03/19 21:13 Urine Mucus Few /HPF 07/03/19 21:13 Urine Osmolality 293 Mosm/kg 07/05/19 08:15 Vancomycin Trough 23.2 ug/mL (5.0-20.0) H 07/05/19 17:54 Urine Opiates Screen Presumptive negative 07/03/19 21:13 Urine Methadone Screen Presumptive negative 07/03/19 21:13 Ur Barbiturates Screen Presumptive negative 07/03/19 21:13 Ur Phencyclidine Scrn Presumptive negative 07/03/19 21:13 Ur Amphetamines Screen Presumptive negative 07/03/19 21:13 U Benzodiazepines Scrn Presumptive negative 07/03/19 21:13 Urine Cocaine Screen Presumptive negative 07/03/19 21:13 U Marijuana (THC) Screen Presumptive negative 07/03/19 21:13 Drugs of Abuse Note Disclamer 07/03/19 21:13 Plasma/Serum Alcohol < 0.01 % (0-0.07) 07/03/19 23:58 Coronavirus (PCR) Positive (Negative) A 07/04/19 10:09 Blood Type B POSITIVE 07/12/19 08:49 Antibody Screen Negative 07/12/19 08:49 Crossmatch See Detail 07/12/19 08:49 Wright/IV: Voiding Method Indwelling Catheter IV Catheter Type [Left Upper Mid-line arm] IV Catheter Type [Right INT / Saline Lock Forearm] IV Catheter Type [Right Hand] INT / Saline Lock IV Catheter Type [Right CVL Femoral] IV Catheter Type [Left INT / Saline Lock External Jugular] Active Medications - Current Medications Current Medications: Generic Name Dose Route Start Last Admin Trade Name Freq PRN Reason Stop Dose Admin Acetaminophen 650 mg 07/04/19 04:24 Tylenol VA Q6H PRN Pain MILD(1-3)/Fever >100.5/MURO Acetaminophen 650 mg 07/10/19 04:00 07/15/19 20:35 Tylenol PO 650 mg Q6HR PRN Administration Pain, Mild (1-3) FEVER Lipase/Protease/Amylase 1 each 07/04/19 10:04 07/20/19 06:15 Mor Gilbert 10,500 Unit FEEDTUBE 1 each PRN PRN Administration For Clogged Feeding Tube Aspirin 81 mg 07/05/19 10:00 07/25/19 11:50 Baby Aspirin PO 81 mg QDAY TAMMIE Administration Dextrose 50 ml 07/04/19 06:54 D50w (25gm) Syringe IV Q30MIN PRN Hypoglycemia Protocol Docusate Sodium 100 mg 07/10/19 10:00 07/25/19 21:42 Colace PO 100 mg BID TAMMIE Administration Enoxaparin Sodium 40 mg 07/24/19 10:00 07/25/19 11:49 Enoxaparin SUB-Q 40 mg QDAY@1000 TAMMIE Administration Famotidine 20 mg 07/23/19 22:00 07/25/19 21:42 Pepcid PO 20 mg BID TAMMIE Administration Fentanyl 50 mcg 07/21/19 15:18 Sublimaze IV Q10MIN PRN ANALGESIA Folic Acid 1 mg 07/05/19 10:00 07/25/19 11:50 Folvite PO 1 mg QDAY [facility] Administration Hydrophilic Ointment 1 applic 07/03/19 19:56 07/05/19 17:42 Vaseline Lip Therapy TP 1 applic Q2HR PRN Administration Dry Lips Norepinephrine 4 mg in 250 mls @ 7.5 mls/hr 07/03/19 23:00 07/20/19 01:00 Levophed Drip 4 Mg/Ns 250 Ml IV Infused TITR TAMMIE Titration Protocol 2 MCG/MIN Fentanyl Citrate 2,000 mcg in 100 mls @ 4.75 mls/hr 07/21/19 16:00 07/25/19 18:22 Fentanyl Drip Premix IV 1 mcg/kg/hr TITR TAMMIE 4.75 mls/hr Administration Protocol 1 MCG/KG/HR Insulin Human Lispro 0 unit 07/07/19 12:00 07/26/19 00:22 Humalog SUB-Q Not Given Q6HR [facility] Protocol Levetiracetam 750 mg 07/06/19 11:00 07/25/19 21:42 Keppra FEEDTUBE 750 mg Q12HR TAMMIE Administration Metoprolol Tartrate 5 mg 07/12/19 15:08 07/12/19 15:30 Metoprolol IV 5 mg Q6HR PRN Administration Tachyarrhythmias Multi-Ingred Cream/Lotion/Oil/Oint 1 applic 07/03/19 19:56 07/05/19 13:19 Artificial Tears Ophth Oint OU 1 applic Q4HR PRN Administration Dry Eye(s) Naloxone HCl 0.1 mg 07/04/19 04:24 Naloxone IV Q2MIN PRN Res Rate </= 8 or 02 SAT < 92% Oxycodone/Acetaminophen 1 tab 07/19/19 14:17 Percocet 5/325 PO Q4H PRN Pain, Moderate (4-6) Scopolamine 1 each 07/10/19 11:00 07/25/19 11:51 Transderm-Scop TD 1 each Q3D TAMMIE Administration Simple Syrup 15 ml 07/04/19 10:04 07/10/19 21:56 Simple Syrup FEEDTUBE 15 ml PRN PRN Administration Hypoglycemia Simple Syrup 30 ml 07/04/19 10:04 Simple Syrup FEEDTUBE PRN PRN Hypoglycemia Sodium Bicarbonate 325 mg 07/04/19 10:04 07/20/19 10:20 Sodium Bicarbonate FEEDTUBE 325 mg PRN PRN Administration For Clogged Feeding Tube Sodium Chloride 10 ml 07/04/19 10:00 07/25/19 21:43 Sodium Chloride Flush Syringe 10 Ml IV 10 ml BID TAMMIE Administration Sodium Chloride 10 ml 07/04/19 04:24 Sodium Chloride Flush Syringe 10 Ml IV PRN PRN LINE FLUSH Sodium Hypochlorite 1 applic 07/10/19 14:00 07/26/19 04:42 Dakin's Half Strength TP 1 applicatio BID TAMMIE Administration Nutrition/Malnutrition Assess - Dietary Evaluation Nutrition/Malnutrition Findings: Nutrition Notes Start: 07/04/19 09:17 Freq: Status: Active Protocol: Document 07/23/19 16:03 [facility] (Rec: 07/23/19 16:09 [facility] [id number]) Nutrition Notes Initial or Follow up Reassessment Current Diagnosis Acute Kidney Injury,COPD, Decubitus(Pressure Ulcer), Diabetes,Hypertension Other Pertinent Diagnosis COVID-19 (+), pneu, seizures, schizophrenia, Buttock and R foot PU, Current Diet TF - Nepro at 45ml/hr Labs/Tests Reviewed Pertinent Medications Reviewed Height 5 ft 11 in Weight 97.2 kg [place] Body Weight (kg) 78.18 BMI 29.9 Weight change and time frame Wt change noted Subjective/Other Information RD spoke with RN via phone at 15:27. Pt tolerating TF at goal rate. Pt remains on vent support. Percent of energy/protein needs met: 100% energy 87% pro Burn Absent Trauma Absent #2 Nutrition Diagnosis Increased nutrient needs ( specify in comment below) Diagnosis Progress(for reassessment Continues documentation) #1 Nutrition Diagnosis Inadequate oral intake Diagnosis Progress(for reassessment Continues documentation) Is patient on ventilator? Yes Is Patient Ambulatory and/or Out of Bed No REE-([place]-confined to bed) 7310.500 Additional Notes Use pro needs based on wt from previous assessment - current wt likely related to fluid retention Protein: 101-168g (1.2-2g/kg) Fluid: 1 ml/kcal or per MD Nutrition Intervention Nutrition Support: Nepro 1.8 at 45ml/hr Flush 200ml q4h Kcal 1,944 Protein (gm) 87 Fluid (mL) 785 Goal #1 TF tolerance Goal #2 TF to meet at least 75% of energy and protein needs Follow-Up By: 07/30/19 Additional Comments F/U: stable TF, vent status, wt
[2019-07-26] MEDS: FAMOTIDINE 20 MG TAB PO SCH (09:33)
[2019-07-26] MEDS: ENOXAPARIN 40 MG/0.4 ML INJ SUB-Q SCH (09:33)
[2019-07-26] MEDS: FOLIC ACID 1 MG TAB PO SCH (09:33)
[2019-07-26] MEDS: DOCUSATE SODIUM 100 MG/10 ML ORAL LIQD PO SCH (09:34)
[2019-07-26] MEDS: levETIRAcetam 500 MG/5 ML ORAL LIQD FEEDTUBE SCH (09:34)
[2019-07-26] MEDS: ASPIRIN 81 MG TAB CHEW PO SCH (09:34)
--- NOTE | 2019-07-26 13:33 | Progress Note ---
Assessment and Plan Acute hypoxemic respiratory failure on MVS Severe sepsis with Shock. Bilateral Pneumonia. PUI coronavirus-19 infection. Acute possibly on chronic encephalopathy. Oropharyngeal dysphagia. Anemia. Decubitus ulcers Diabetes type 2. Hypertension. Leukocytosis. Anemia that is microcytic. Elevated serum transaminases. [id number] metabolic acidosis. Lactic acidosis. Severe protein-calorie malnutrition -consult placed for tracheostomy placement - continue care as below otherwise - continue fentanyl gtt for pain control / sedation - continue to wean supplemental oxygen for target O2 sat's > 90% acutely - continue daily SAT's and SBT assessment as tolerated - VAP bundle addressed - continue lung protective strategies - continue bronchodilators with pulmonary hygiene per RT - wean per pulmonary driven protocols otherwise - prn Levophed for target MAP > 65 mmHg - continue airborne and contact COVID-19 precautions - COVID-19 test positive - complete anti-infectives and de-escalate per ID recommendations - continue wound care per WCT - sedation prn for target RASS 0 to -1 - accuchecks with glycemic control per SSI (While critically ill target blood glucose of 140-180 mg/dL; avoid hypoglycemia) - to avoid benzodiazepine's, reduce the possibility of delirium - prn analgesia per CPOT score - Maintenance of sleep-wake cycle, avoid delirium - continue enteral nutritional support at goal rate as tolerated - G.I. & VTE prophylaxis - PT/OT/ROM exercises - continue mobility protocols for pressure ulcer prophylaxis - Monitor hemodynamics closely - continue other care per attending / other consultants - discharge planning ongoing concurrently .... Re-evaluate in am & prn CONDITION: CRITICAL PROGNOSIS: GUARDED CODE STATUS: FULL CODE The high probability of a clinically significant, sudden or life-threatening deterioration of the [respiratory & cardiovascular] system(s) required my full and direct attention, intervention and personal management. The aggregate critical care time was [34] minutes without overlap. Time includes spent on; [x] Data Review and interpretation [x] Patient assessment and monitoring of vital signs [x] Documentation [x] Medication orders and management Subjective Date of service: 07/26/19 Principal diagnosis: Bilateral pneumonia, severe sepsis with septic shock, encephalopathy Interval history: Patient is seen today for: Ac hypoxemic Resp failure on MVS; Severe sepsis with Shock; Ivan. Pneumonia; PUI coronavirus-19 infection. Seen and examined at bedside; 24hour events reviewed; nursing and respiratory ca re staff consulted; no adverse overnight events reported to me; resting in bed; remains on MVS; again failed bedside SBT; AMS is persistent; No emesis or overt aspiration Objective Vital Signs - 12hr 07/26/19 07/26/19 07/26/19 02:00 02:30 03:00 Temperature Pulse Rate 104 H 104 H 106 H Pulse Rate [ Right Dorsalis Pedis] Respiratory 15 18 17 Rate Blood Pressure 140/71 148/75 153/80 O2 Sat by Pulse 93 94 94 Oximetry 07/26/19 07/26/19 07/26/19 03:30 04:00 04:30 Temperature 97.8 F Pulse Rate 112 H 112 H 122 H Pulse Rate [ 110 H Right Dorsalis Pedis] Respiratory 16 16 22 Rate Blood Pressure 148/75 137/70 137/70 O2 Sat by Pulse 93 93 98 Oximetry 07/26/19 07/26/19 07/26/19 05:00 05:06 05:30 Temperature Pulse Rate 108 H 107 H 106 H Pulse Rate [ Right Dorsalis Pedis] Respiratory 17 15 Rate Blood Pressure 140/75 140/75 137/72 O2 Sat by Pulse 98 98 98 Oximetry 07/26/19 07/26/19 07/26/19 06:00 06:30 07:00 Temperature Pulse Rate 106 H 105 H 103 H Pulse Rate [ Right Dorsalis Pedis] Respiratory 16 12 14 Rate Blood Pressure 140/75 137/72 150/82 O2 Sat by Pulse 98 98 99 Oximetry 07/26/19 07/26/19 07/26/19 07:30 08:00 08:30 Temperature 98.6 F Pulse Rate 107 H 105 H 106 H Pulse Rate [ Right Dorsalis Pedis] Respiratory 16 16 16 Rate Blood Pressure 147/81 145/89 146/83 O2 Sat by Pulse 99 99 98 Oximetry 07/26/19 07/26/19 07/26/19 09:00 09:04 09:11 Temperature Pulse Rate 105 H 108 H 108 H Pulse Rate [ Right Dorsalis Pedis] Respiratory 15 21 Rate Blood Pressure 148/83 148/83 O2 Sat by Pulse 98 100 100 Oximetry 07/26/19 07/26/19 07/26/19 09:30 10:00 10:30 Temperature Pulse Rate 107 H 108 H 102 H Pulse Rate [ Right Dorsalis Pedis] Respiratory 17 16 16 Rate Blood Pressure 148/78 146/84 148/79 O2 Sat by Pulse 98 99 99 Oximetry 07/26/19 07/26/19 11:00 12:28 Temperature Pulse Rate 104 H 109 H Pulse Rate [ Right Dorsalis Pedis] Respiratory 16 Rate Blood Pressure 144/84 155/88 O2 Sat by Pulse 99 100 Oximetry Constitutional: appears uncomfortable, other (eelderly and chronically ill looking AAM, normocep[krystina;ic with mildly increased respiratory effort at rest) Eyes: non-icteric ENT: oropharynx moist, other (ETT 24 cm Pawan) Neck: supple, no lymphadenopathy, no JVD Effort: very labored Ascultation: Bilateral: diminished breath sounds, rhonchi Percussion: Bilateral: not dull Cardiovascular: regular rate and rhythm Gastrointestinal: normoactive bowel sounds, soft, non-tender, non-distended, other (+ PEG tube with mild TF leakage) Integumentary: decubitus ulcer Extremities: no cyanosis, no edema, pink and warm, pulses normal Neurologic: unable to assess Psychiatric: other (Unable to assess re: AMS) CBC and BMP: 07/25/19 05:14 07/25/19 05:14 ABG, PT/INR, D-dimer: ABG ABG pH 7.364 pH Units (7.350-7.450) 07/24/19 04:40 ABG pCO2 51.1 mm Hg 07/24/19 04:40 ABG pO2 73.5 mm Hg (80.0-90.0) L 07/24/19 04:40 ABG O2 Saturation 94.5 % (95.0-99.0) L 07/24/19 04:40 PT/INR, D-dimer PT 16.0 Sec. (12.2-14.9) H 07/03/19 22:20 INR 1.26 (0.87-1.13) H 07/03/19 22:20 D-Dimer 1142.18 ng/mlDDU (0-234) H 07/08/19 00:45 Abnormal lab findings: Abnormal Labs 07/03/19 07/03/19 07/03/19 19:57 21:10 21:13 WBC RBC Hgb Hct MCV MCH MCHC RDW Plt Count Lymph % (Auto) [place] % (Auto) Lymph # [place] # Baso # Seg Neutrophils % Seg Neuts % (Manual) Lymphocytes % (Manual) Monocytes % (Manual) Nucleated RBC % Seg Neutrophils # Seg Neutrophils # Man Lymphocytes # (Manual) Monocytes # (Manual) PT INR D-Dimer ABG pH 7.238 L ABG pO2 210.8 H ABG HCO3 15.4 L ABG O2 Saturation 99.2 H ABG Base Excess -11.1 L ABG Hemoglobin 8.0 L Oxyhemoglobin Sodium 124 L Potassium Chloride 92.9 L Carbon Dioxide 10 L BUN 23 H Creatinine 0.5 L Glucose 118 H POC Glucose Lactic Acid Calcium 7.0 L Magnesium Iron TIBC Ferritin AST 70 H ALT 88 H Lactate Dehydrogenase Troponin T 0.032 H C-Reactive Protein Total Protein 5.0 L Albumin 1.8 L Cholesterol 47 L LDL Cholesterol Direct 25 L HDL Cholesterol 20 L Urine WBC (Auto) 12.0 H Vancomycin Trough Coronavirus (PCR) Crossmatch 07/03/19 07/03/19 07/03/19 22:20 22:20 22:20 WBC 30.5 H RBC 2.96 L Hgb 7.7 L Hct 23.9 L MCV 81 L MCH 26 L MCHC RDW 18.6 H Plt Count 459 H Lymph % (Auto) [place] % (Auto) Lymph # [place] # Baso # Seg Neutrophils % Seg Neuts % (Manual) 93.0 H Lymphocytes % (Manual) 0.5 L Monocytes % (Manual) Nucleated RBC % Seg Neutrophils # Seg Neutrophils # Man 28.4 H Lymphocytes # (Manual) 0.2 L Monocytes # (Manual) PT 16.0 H INR 1.26 H D-Dimer ABG pH ABG pO2 ABG HCO3 ABG O2 Saturation ABG Base Excess ABG Hemoglobin Oxyhemoglobin Sodium Potassium Chloride Carbon Dioxide BUN Creatinine Glucose POC Glucose Lactic Acid 6.90 H* Calcium Magnesium Iron TIBC Ferritin AST ALT Lactate Dehydrogenase Troponin T C-Reactive Protein Total Protein Albumin Cholesterol LDL Cholesterol Direct HDL Cholesterol Urine WBC (Auto) Vancomycin Trough Coronavirus (PCR) Crossmatch 07/03/19 07/04/19 07/04/19 23:58 05:15 07:05 WBC 17.1 H RBC 3.22 L Hgb 8.3 L Hct 25.4 L MCV 79 L MCH 26 L MCHC RDW 18.6 H Plt Count Lymph % (Auto) [place] % (Auto) Lymph # [place] # Baso # Seg Neutrophils % Seg Neuts % (Manual) 74.0 H Lymphocytes % (Manual) 0 L Monocytes % (Manual) Nucleated RBC % Seg Neutrophils # Seg Neutrophils # Man 12.7 H Lymphocytes # (Manual) 0.0 L Monocytes # (Manual) PT INR D-Dimer ABG pH 7.310 L ABG pO2 73.2 L ABG HCO3 17.8 L ABG O2 Saturation 93.8 L ABG Base Excess -7.7 L ABG Hemoglobin 9.6 L Oxyhemoglobin 92.3 L Sodium Potassium Chloride Carbon Dioxide BUN Creatinine Glucose POC Glucose Lactic Acid 7.10 H* Calcium Magnesium Iron TIBC Ferritin AST ALT Lactate Dehydrogenase Troponin T C-Reactive Protein Total Protein Albumin Cholesterol LDL Cholesterol Direct HDL Cholesterol Urine WBC (Auto) Vancomycin Trough Coronavirus (PCR) Crossmatch 07/04/19 07/04/19 07/04/19 07:05 07:05 07:05 WBC RBC Hgb Hct MCV MCH MCHC RDW Plt Count Lymph % (Auto) [place] % (Auto) Lymph # [place] # Baso # Seg Neutrophils % Seg Neuts % (Manual) Lymphocytes % (Manual) Monocytes % (Manual) Nucleated RBC % Seg Neutrophils # Seg Neutrophils # Man Lymphocytes # (Manual) Monocytes # (Manual) PT INR D-Dimer ABG pH ABG pO2 ABG HCO3 ABG O2 Saturation ABG Base Excess ABG Hemoglobin Oxyhemoglobin Sodium 120 L Potassium 5.1 H Chloride 90.0 L Carbon Dioxide 14 L BUN 26 H Creatinine 0.5 L Glucose POC Glucose Lactic Acid 3.30 H* Calcium 8.0 L Magnesium Iron 9 L TIBC 97 L Ferritin AST 73 H ALT 91 H Lactate Dehydrogenase Troponin T C-Reactive Protein Total Protein 5.5 L Albumin 2.0 L Cholesterol LDL Cholesterol Direct HDL Cholesterol Urine WBC (Auto) Vancomycin Trough Coronavirus (PCR) Crossmatch 07/04/19 07/04/19 07/04/19 09:39 09:39 09:39 WBC RBC Hgb Hct MCV MCH MCHC RDW Plt Count Lymph % (Auto) [place] % (Auto) Lymph # [place] # Baso # Seg Neutrophils % Seg Neuts % (Manual) Lymphocytes % (Manual) Monocytes % (Manual) Nucleated RBC % Seg Neutrophils # Seg Neutrophils # Man Lymphocytes # (Manual) Monocytes # (Manual) PT INR D-Dimer 1419.14 H ABG pH ABG pO2 ABG HCO3 ABG O2 Saturation ABG Base Excess ABG Hemoglobin Oxyhemoglobin Sodium Potassium Chloride Carbon Dioxide BUN Creatinine Glucose POC Glucose Lactic Acid Calcium Magnesium Iron TIBC Ferritin 1719.0 H AST ALT Lactate Dehydrogenase 234 H Troponin T C-Reactive Protein 15.50 H Total Protein Albumin Cholesterol LDL Cholesterol Direct HDL Cholesterol Urine WBC (Auto) Vancomycin Trough Coronavirus (PCR) Crossmatch 07/04/19 07/04/19 07/04/19 10:09 18:08 18:28 WBC RBC Hgb Hct MCV MCH MCHC RDW Plt Count Lymph % (Auto) [place] % (Auto) Lymph # [place] # Baso # Seg Neutrophils % Seg Neuts % (Manual) Lymphocytes % (Manual) Monocytes % (Manual) Nucleated RBC % Seg Neutrophils # Seg Neutrophils # Man Lymphocytes # (Manual) Monocytes # (Manual) PT INR D-Dimer ABG pH ABG pO2 ABG HCO3 ABG O2 Saturation ABG Base Excess ABG Hemoglobin Oxyhemoglobin Sodium 117 L* Potassium 5.6 H Chloride 90.3 L Carbon Dioxide 16 L BUN 28 H Creatinine 0.5 L Glucose 58 L POC Glucose 65 L Lactic Acid Calcium 8.2 L Magnesium Iron TIBC Ferritin AST ALT Lactate Dehydrogenase Troponin T C-Reactive Protein Total Protein Albumin Cholesterol LDL Cholesterol Direct HDL Cholesterol Urine WBC (Auto) Vancomycin Trough Coronavirus (PCR) Positive A Crossmatch 07/04/19 07/04/19 07/04/19 23:45 Unknown Unknown WBC RBC Hgb Hct MCV MCH MCHC RDW Plt Count Lymph % (Auto) [place] % (Auto) Lymph # [place] # Baso # Seg Neutrophils % Seg Neuts % (Manual) Lymphocytes % (Manual) Monocytes % (Manual) Nucleated RBC % Seg Neutrophils # Seg Neutrophils # Man Lymphocytes # (Manual) Monocytes # (Manual) PT INR D-Dimer 759.77 H ABG pH ABG pO2 ABG HCO3 ABG O2 Saturation ABG Base Excess ABG Hemoglobin Oxyhemoglobin Sodium 122 L Potassium Chloride 93.0 L Carbon Dioxide 19 L BUN 27 H Creatinine 0.5 L Glucose POC Glucose Lactic Acid Calcium 8.3 L Magnesium Iron TIBC Ferritin 1301.0 H AST ALT Lactate Dehydrogenase Troponin T C-Reactive Protein Total Protein Albumin Cholesterol LDL Cholesterol Direct HDL Cholesterol Urine WBC (Auto) Vancomycin Trough Coronavirus (PCR) Crossmatch 07/04/19 07/05/19 07/05/19 Unknown 03:20 04:00 WBC RBC Hgb Hct MCV MCH MCHC RDW Plt Count Lymph % (Auto) [place] % (Auto) Lymph # [place] # Baso # Seg Neutrophils % Seg Neuts % (Manual) Lymphocytes % (Manual) Monocytes % (Manual) Nucleated RBC % Seg Neutrophils # Seg Neutrophils # Man Lymphocytes # (Manual) Monocytes # (Manual) PT INR D-Dimer ABG pH ABG pO2 60.6 L ABG HCO3 ABG O2 Saturation 93.5 L ABG Base Excess -2.4 L ABG Hemoglobin 6.9 L Oxyhemoglobin 92.0 L Sodium 125 L Potassium Chloride 92.6 L Carbon Dioxide 19 L BUN 24 H Creatinine 0.6 L Glucose POC Glucose Lactic Acid Calcium 8.2 L Magnesium 1.40 L Iron TIBC Ferritin AST ALT Lactate Dehydrogenase 242 H Troponin T C-Reactive Protein 16.70 H Total Protein Albumin Cholesterol LDL Cholesterol Direct HDL Cholesterol Urine WBC (Auto) Vancomycin Trough Coronavirus (PCR) Crossmatch 07/05/19 07/05/19 07/05/19 10:11 16:15 17:54 WBC 46.4 H* RBC 2.77 L Hgb 7.2 L Hct 21.9 L MCV 79 L MCH 26 L MCHC RDW 19.0 H Plt Count Lymph % (Auto) [place] % (Auto) Lymph # [place] # Baso # Seg Neutrophils % Seg Neuts % (Manual) 82.0 H Lymphocytes % (Manual) 1.0 L Monocytes % (Manual) Nucleated RBC % Seg Neutrophils # Seg Neutrophils # Man 38.0 H Lymphocytes # (Manual) 0.5 L Monocytes # (Manual) PT INR D-Dimer ABG pH ABG pO2 ABG HCO3 ABG O2 Saturation ABG Base Excess ABG Hemoglobin Oxyhemoglobin Sodium Potassium Chloride Carbon Dioxide BUN Creatinine Glucose POC Glucose 69 L Lactic Acid Calcium Magnesium Iron TIBC Ferritin AST ALT Lactate Dehydrogenase Troponin T C-Reactive Protein Total Protein Albumin Cholesterol LDL Cholesterol Direct HDL Cholesterol Urine WBC (Auto) Vancomycin Trough 23.2 H Coronavirus (PCR) Crossmatch 07/05/19 07/06/19 07/06/19 19:58 00:27 00:27 WBC RBC Hgb Hct MCV MCH MCHC RDW Plt Count Lymph % (Auto) [place] % (Auto) Lymph # [place] # Baso # Seg Neutrophils % Seg Neuts % (Manual) Lymphocytes % (Manual) Monocytes % (Manual) Nucleated RBC % Seg Neutrophils # Seg Neutrophils # Man Lymphocytes # (Manual) Monocytes # (Manual) PT INR D-Dimer 1333.22 H ABG pH ABG pO2 ABG HCO3 ABG O2 Saturation ABG Base Excess ABG Hemoglobin Oxyhemoglobin Sodium 127 L Potassium Chloride Carbon Dioxide BUN Creatinine Glucose POC Glucose Lactic Acid Calcium Magnesium Iron TIBC Ferritin 977.1 H AST ALT Lactate Dehydrogenase Troponin T C-Reactive Protein Total Protein Albumin Cholesterol LDL Cholesterol Direct HDL Cholesterol Urine WBC (Auto) Vancomycin Trough Coronavirus (PCR) Crossmatch 07/06/19 07/06/19 07/06/19 00:27 02:00 02:56 WBC RBC Hgb Hct MCV MCH MCHC RDW Plt Count Lymph % (Auto) [place] % (Auto) Lymph # [place] # Baso # Seg Neutrophils % Seg Neuts % (Manual) Lymphocytes % (Manual) Monocytes % (Manual) Nucleated RBC % Seg Neutrophils # Seg Neutrophils # Man Lymphocytes # (Manual) Monocytes # (Manual) PT INR D-Dimer ABG pH ABG pO2 70.3 L ABG HCO3 ABG O2 Saturation 94.8 L ABG Base Excess ABG Hemoglobin 8.0 L Oxyhemoglobin 93.2 L Sodium Potassium Chloride Carbon Dioxide BUN Creatinine Glucose POC Glucose 117 H Lactic Acid Calcium Magnesium Iron TIBC Ferritin AST ALT Lactate Dehydrogenase 236 H Troponin T C-Reactive Protein 22.90 H Total Protein Albumin Cholesterol LDL Cholesterol Direct HDL Cholesterol Urine WBC (Auto) Vancomycin Trough Coronavirus (PCR) Crossmatch 07/06/19 07/06/19 07/06/19 03:49 03:49 07:40 WBC 38.8 H RBC 2.51 L Hgb 6.7 L Hct 19.9 L* MCV 79 L MCH 27 L MCHC RDW 19.2 H Plt Count Lymph % (Auto) [place] % (Auto) Lymph # [place] # Baso # Seg Neutrophils % Seg Neuts % (Manual) 90.5 H Lymphocytes % (Manual) 1.0 L Monocytes % (Manual) Nucleated RBC % Seg Neutrophils # Seg Neutrophils # Man 35.1 H Lymphocytes # (Manual) 0.4 L Monocytes # (Manual) PT INR D-Dimer ABG pH ABG pO2 ABG HCO3 ABG O2 Saturation ABG Base Excess ABG Hemoglobin Oxyhemoglobin Sodium 131 L Potassium Chloride 96.9 L Carbon Dioxide 18 L BUN 23 H Creatinine 0.5 L Glucose POC Glucose Lactic Acid Calcium 8.0 L Magnesium Iron TIBC Ferritin AST ALT Lactate Dehydrogenase Troponin T C-Reactive Protein Total Protein Albumin Cholesterol LDL Cholesterol Direct HDL Cholesterol Urine WBC (Auto) Vancomycin Trough Coronavirus (PCR) Crossmatch See Detail 07/06/19 07/06/19 07/06/19 12:38 14:39 20:00 WBC RBC Hgb Hct MCV MCH MCHC RDW Plt Count Lymph % (Auto) [place] % (Auto) Lymph # [place] # Baso # Seg Neutrophils % Seg Neuts % (Manual) Lymphocytes % (Manual) Monocytes % (Manual) Nucleated RBC % Seg Neutrophils # Seg Neutrophils # Man Lymphocytes # (Manual) Monocytes # (Manual) PT INR D-Dimer ABG pH ABG pO2 ABG HCO3 ABG O2 Saturation ABG Base Excess ABG Hemoglobin Oxyhemoglobin Sodium Potassium Chloride Carbon Dioxide BUN Creatinine Glucose POC Glucose 112 H 111 H 140 H Lactic Acid Calcium Magnesium Iron TIBC Ferritin AST ALT Lactate Dehydrogenase Troponin T C-Reactive Protein Total Protein Albumin Cholesterol LDL Cholesterol Direct HDL Cholesterol Urine WBC (Auto) Vancomycin Trough Coronavirus (PCR) Crossmatch 07/06/19 07/06/19 07/07/19 22:43 22:56 02:20 WBC RBC Hgb 7.9 L Hct 23.1 L MCV MCH MCHC RDW Plt Count Lymph % (Auto) [place] % (Auto) Lymph # [place] # Baso # Seg Neutrophils % Seg Neuts % (Manual) Lymphocytes % (Manual) Monocytes % (Manual) Nucleated RBC % Seg Neutrophils # Seg Neutrophils # Man Lymphocytes # (Manual) Monocytes # (Manual) PT INR D-Dimer ABG pH ABG pO2 ABG HCO3 ABG O2 Saturation ABG Base Excess ABG Hemoglobin Oxyhemoglobin Sodium Potassium Chloride Carbon Dioxide BUN Creatinine Glucose POC Glucose 122 H 149 H Lactic Acid Calcium Magnesium Iron TIBC Ferritin AST ALT Lactate Dehydrogenase Troponin T C-Reactive Protein Total Protein Albumin Cholesterol LDL Cholesterol Direct HDL Cholesterol Urine WBC (Auto) Vancomycin Trough Coronavirus (PCR) Crossmatch 07/07/19 07/07/19 07/07/19 04:35 05:27 05:34 WBC 23.1 H RBC 3.00 L Hgb 8.1 L Hct 24.2 L MCV 81 L MCH 27 L MCHC RDW 20.6 H Plt Count Lymph % (Auto) [place] % (Auto) Lymph # [place] # Baso # Seg Neutrophils % Seg Neuts % (Manual) 90.0 H Lymphocytes % (Manual) 2.0 L Monocytes % (Manual) Nucleated RBC % Seg Neutrophils # Seg Neutrophils # Man 20.8 H Lymphocytes # (Manual) 0.5 L Monocytes # (Manual) PT INR D-Dimer ABG pH ABG pO2 65.8 L ABG HCO3 ABG O2 Saturation 92.2 L ABG Base Excess ABG Hemoglobin 8.3 L Oxyhemoglobin 90.6 L Sodium Potassium Chloride Carbon Dioxide BUN Creatinine Glucose POC Glucose 132 H Lactic Acid Calcium Magnesium Iron TIBC Ferritin AST ALT Lactate Dehydrogenase Troponin T C-Reactive Protein Total Protein Albumin Cholesterol LDL Cholesterol Direct HDL Cholesterol Urine WBC (Auto) Vancomycin Trough Coronavirus (PCR) Crossmatch 07/07/19 07/07/19 07/07/19 05:34 11:50 15:58 WBC RBC Hgb 8.1 L Hct 24.2 L MCV MCH MCHC RDW Plt Count Lymph % (Auto) [place] % (Auto) Lymph # [place] # Baso # Seg Neutrophils % Seg Neuts % (Manual) Lymphocytes % (Manual) Monocytes % (Manual) Nucleated RBC % Seg Neutrophils # Seg Neutrophils # Man Lymphocytes # (Manual) Monocytes # (Manual) PT INR D-Dimer ABG pH ABG pO2 ABG HCO3 ABG O2 Saturation ABG Base Excess ABG Hemoglobin Oxyhemoglobin Sodium 135 L Potassium 3.3 L Chloride Carbon Dioxide 20 L BUN 27 H Creatinine 0.6 L Glucose 121 H POC Glucose 123 H Lactic Acid Calcium 8.0 L Magnesium Iron TIBC Ferritin AST ALT Lactate Dehydrogenase Troponin T C-Reactive Protein Total Protein Albumin Cholesterol LDL Cholesterol Direct HDL Cholesterol Urine WBC (Auto) Vancomycin Trough Coronavirus (PCR) Crossmatch 07/07/19 07/07/19 07/07/19 17:42 22:00 23:53 WBC RBC Hgb 8.0 L Hct 23.4 L MCV MCH MCHC RDW Plt Count Lymph % (Auto) [place] % (Auto) Lymph # [place] # Baso # Seg Neutrophils % Seg Neuts % (Manual) Lymphocytes % (Manual) Monocytes % (Manual) Nucleated RBC % Seg Neutrophils # Seg Neutrophils # Man Lymphocytes # (Manual) Monocytes # (Manual) PT INR D-Dimer ABG pH ABG pO2 ABG HCO3 ABG O2 Saturation ABG Base Excess ABG Hemoglobin Oxyhemoglobin Sodium Potassium Chloride Carbon Dioxide BUN Creatinine Glucose POC Glucose 107 H 117 H Lactic Acid Calcium Magnesium Iron TIBC Ferritin AST ALT Lactate Dehydrogenase Troponin T C-Reactive Protein Total Protein Albumin Cholesterol LDL Cholesterol Direct HDL Cholesterol Urine WBC (Auto) Vancomycin Trough Coronavirus (PCR) Crossmatch 07/08/19 07/08/19 07/08/19 00:45 00:45 00:45 WBC RBC Hgb Hct MCV MCH MCHC RDW Plt Count Lymph % (Auto) [place] % (Auto) Lymph # [place] # Baso # Seg Neutrophils % Seg Neuts % (Manual) Lymphocytes % (Manual) Monocytes % (Manual) Nucleated RBC % Seg Neutrophils # Seg Neutrophils # Man Lymphocytes # (Manual) Monocytes # (Manual) PT INR D-Dimer 1142.18 H ABG pH ABG pO2 ABG HCO3 ABG O2 Saturation ABG Base Excess ABG Hemoglobin Oxyhemoglobin Sodium Potassium Chloride Carbon Dioxide BUN Creatinine Glucose POC Glucose Lactic Acid Calcium Magnesium Iron TIBC Ferritin 839.0 H AST ALT Lactate Dehydrogenase 253 H Troponin T C-Reactive Protein 18.90 H Total Protein Albumin Cholesterol LDL Cholesterol Direct HDL Cholesterol Urine WBC (Auto) Vancomycin Trough Coronavirus (PCR) Crossmatch 07/08/19 07/08/19 07/08/19 04:30 05:11 12:02 WBC RBC Hgb Hct MCV MCH MCHC RDW Plt Count Lymph % (Auto) [place] % (Auto) Lymph # [place] # Baso # Seg Neutrophils % Seg Neuts % (Manual) Lymphocytes % (Manual) Monocytes % (Manual) Nucleated RBC % Seg Neutrophils # Seg Neutrophils # Man Lymphocytes # (Manual) Monocytes # (Manual) PT INR D-Dimer ABG pH ABG pO2 66.0 L ABG HCO3 ABG O2 Saturation 92.3 L ABG Base Excess ABG Hemoglobin 7.7 L Oxyhemoglobin 90.7 L Sodium Potassium Chloride Carbon Dioxide BUN Creatinine Glucose POC Glucose 108 H 153 H Lactic Acid Calcium Magnesium Iron TIBC Ferritin AST ALT Lactate Dehydrogenase Troponin T C-Reactive Protein Total Protein Albumin Cholesterol LDL Cholesterol Direct HDL Cholesterol Urine WBC (Auto) Vancomycin Trough Coronavirus (PCR) Crossmatch 07/08/19 07/08/19 07/08/19 16:15 18:22 23:35 WBC RBC Hgb Hct MCV MCH MCHC RDW Plt Count Lymph % (Auto) [place] % (Auto) Lymph # [place] # Baso # Seg Neutrophils % Seg Neuts % (Manual) Lymphocytes % (Manual) Monocytes % (Manual) Nucleated RBC % Seg Neutrophils # Seg Neutrophils # Man Lymphocytes # (Manual) Monocytes # (Manual) PT INR D-Dimer ABG pH ABG pO2 ABG HCO3 ABG O2 Saturation ABG Base Excess ABG Hemoglobin Oxyhemoglobin Sodium 134 L Potassium 3.3 L Chloride Carbon Dioxide 21 L BUN 27 H Creatinine 0.6 L Glucose 146 H POC Glucose 134 H 133 H Lactic Acid Calcium Magnesium Iron TIBC Ferritin AST ALT Lactate Dehydrogenase Troponin T C-Reactive Protein Total Protein Albumin Cholesterol LDL Cholesterol Direct HDL Cholesterol Urine WBC (Auto) Vancomycin Trough Coronavirus (PCR) Crossmatch 07/09/19 07/09/19 07/09/19 04:30 04:30 05:00 WBC 18.9 H RBC 2.77 L Hgb 7.4 L Hct 22.8 L MCV 82 L MCH 27 L MCHC RDW 20.9 H Plt Count 130 L Lymph % (Auto) [place] % (Auto) Lymph # [place] # Baso # Seg Neutrophils % Seg Neuts % (Manual) 84.0 H Lymphocytes % (Manual) 0 L Monocytes % (Manual) Nucleated RBC % Seg Neutrophils # Seg Neutrophils # Man 15.9 H Lymphocytes # (Manual) 0.0 L Monocytes # (Manual) PT INR D-Dimer ABG pH ABG pO2 ABG HCO3 ABG O2 Saturation ABG Base Excess ABG Hemoglobin Oxyhemoglobin Sodium Potassium 3.1 L Chloride Carbon Dioxide BUN 26 H Creatinine 0.5 L Glucose 125 H POC Glucose 155 H Lactic Acid Calcium Magnesium Iron TIBC Ferritin AST ALT Lactate Dehydrogenase Troponin T C-Reactive Protein Total Protein Albumin Cholesterol LDL Cholesterol Direct HDL Cholesterol Urine WBC (Auto) Vancomycin Trough Coronavirus (PCR) Crossmatch 07/09/19 07/09/19 07/09/19 05:55 12:22 17:50 WBC RBC Hgb Hct MCV MCH MCHC RDW Plt Count Lymph % (Auto) [place] % (Auto) Lymph # [place] # Baso # Seg Neutrophils % Seg Neuts % (Manual) Lymphocytes % (Manual) Monocytes % (Manual) Nucleated RBC % Seg Neutrophils # Seg Neutrophils # Man Lymphocytes # (Manual) Monocytes # (Manual) PT INR D-Dimer ABG pH ABG pO2 62.8 L ABG HCO3 ABG O2 Saturation ABG Base Excess ABG Hemoglobin 6.1 L Oxyhemoglobin 93.9 L Sodium Potassium Chloride Carbon Dioxide BUN Creatinine Glucose POC Glucose 115 H 133 H Lactic Acid Calcium Magnesium Iron TIBC Ferritin AST ALT Lactate Dehydrogenase Troponin T C-Reactive Protein Total Protein Albumin Cholesterol LDL Cholesterol Direct HDL Cholesterol Urine WBC (Auto) Vancomycin Trough Coronavirus (PCR) Crossmatch 07/10/19 07/10/19 07/10/19 00:38 04:00 04:00 WBC RBC Hgb Hct MCV MCH MCHC RDW Plt Count Lymph % (Auto) [place] % (Auto) Lymph # [place] # Baso # Seg Neutrophils % Seg Neuts % (Manual) Lymphocytes % (Manual) Monocytes % (Manual) Nucleated RBC % Seg Neutrophils # Seg Neutrophils # Man Lymphocytes # (Manual) Monocytes # (Manual) PT INR D-Dimer ABG pH ABG pO2 ABG HCO3 ABG O2 Saturation ABG Base Excess ABG Hemoglobin Oxyhemoglobin Sodium Potassium Chloride 107.9 H Carbon Dioxide BUN 26 H Creatinine 0.4 L Glucose 137 H POC Glucose 122 H Lactic Acid Calcium Magnesium 1.50 L Iron TIBC Ferritin AST ALT Lactate Dehydrogenase 277 H Troponin T C-Reactive Protein 15.10 H Total Protein Albumin Cholesterol LDL Cholesterol Direct HDL Cholesterol Urine WBC (Auto) Vancomycin Trough Coronavirus (PCR) Crossmatch 07/10/19 07/10/19 07/10/19 04:07 05:21 17:25 WBC RBC Hgb Hct MCV MCH MCHC RDW Plt Count Lymph % (Auto) [place] % (Auto) Lymph # [place] # Baso # Seg Neutrophils % Seg Neuts % (Manual) Lymphocytes % (Manual) Monocytes % (Manual) Nucleated RBC % Seg Neutrophils # Seg Neutrophils # Man Lymphocytes # (Manual) Monocytes # (Manual) PT INR D-Dimer ABG pH ABG pO2 65.6 L ABG HCO3 26.3 H ABG O2 Saturation ABG Base Excess ABG Hemoglobin 6.7 L Oxyhemoglobin Sodium Potassium Chloride Carbon Dioxide BUN Creatinine Glucose POC Glucose 144 H 113 H Lactic Acid Calcium Magnesium Iron TIBC Ferritin AST ALT Lactate Dehydrogenase Troponin T C-Reactive Protein Total Protein Albumin Cholesterol LDL Cholesterol Direct HDL Cholesterol Urine WBC (Auto) Vancomycin Trough Coronavirus (PCR) Crossmatch 07/11/19 07/11/19 07/11/19 00:07 05:14 05:25 WBC RBC Hgb Hct MCV MCH MCHC RDW Plt Count Lymph % (Auto) [place] % (Auto) Lymph # [place] # Baso # Seg Neutrophils % Seg Neuts % (Manual) Lymphocytes % (Manual) Monocytes % (Manual) Nucleated RBC % Seg Neutrophils # Seg Neutrophils # Man Lymphocytes # (Manual) Monocytes # (Manual) PT INR D-Dimer ABG pH ABG pO2 ABG HCO3 ABG O2 Saturation ABG Base Excess ABG Hemoglobin 5.8 L Oxyhemoglobin Sodium Potassium Chloride 108.0 H Carbon Dioxide BUN 26 H Creatinine 0.4 L Glucose 110 H POC Glucose 121 H Lactic Acid Calcium Magnesium Iron TIBC Ferritin AST ALT Lactate Dehydrogenase Troponin T C-Reactive Protein Total Protein Albumin Cholesterol LDL Cholesterol Direct HDL Cholesterol Urine WBC (Auto) Vancomycin Trough Coronavirus (PCR) Crossmatch 07/11/19 07/11/19 07/11/19 12:27 18:00 23:42 WBC RBC Hgb Hct MCV MCH MCHC RDW Plt Count Lymph % (Auto) [place] % (Auto) Lymph # [place] # Baso # Seg Neutrophils % Seg Neuts % (Manual) Lymphocytes % (Manual) Monocytes % (Manual) Nucleated RBC % Seg Neutrophils # Seg Neutrophils # Man Lymphocytes # (Manual) Monocytes # (Manual) PT INR D-Dimer ABG pH ABG pO2 ABG HCO3 ABG O2 Saturation ABG Base Excess ABG Hemoglobin Oxyhemoglobin Sodium Potassium Chloride Carbon Dioxide BUN Creatinine Glucose POC Glucose 158 H 141 H 142 H Lactic Acid Calcium Magnesium Iron TIBC Ferritin AST ALT Lactate Dehydrogenase Troponin T C-Reactive Protein Total Protein Albumin Cholesterol LDL Cholesterol Direct HDL Cholesterol Urine WBC (Auto) Vancomycin Trough Coronavirus (PCR) Crossmatch 07/12/19 07/12/19 07/12/19 04:46 04:46 05:23 WBC 23.6 H RBC 2.51 L Hgb 6.7 L Hct 20.8 L MCV 83 L MCH 27 L MCHC RDW 20.3 H Plt Count Lymph % (Auto) [place] % (Auto) Lymph # [place] # Baso # Seg Neutrophils % Seg Neuts % (Manual) 94.0 H Lymphocytes % (Manual) 4.0 L Monocytes % (Manual) Nucleated RBC % Seg Neutrophils # Seg Neutrophils # Man 22.2 H Lymphocytes # (Manual) 0.9 L Monocytes # (Manual) PT INR D-Dimer ABG pH ABG pO2 ABG HCO3 ABG O2 Saturation ABG Base Excess ABG Hemoglobin Oxyhemoglobin Sodium Potassium Chloride 107.1 H Carbon Dioxide BUN 25 H Creatinine 0.4 L Glucose 122 H POC Glucose 118 H Lactic Acid Calcium Magnesium Iron TIBC Ferritin AST ALT Lactate Dehydrogenase Troponin T C-Reactive Protein Total Protein Albumin Cholesterol LDL Cholesterol Direct HDL Cholesterol Urine WBC (Auto) Vancomycin Trough Coronavirus (PCR) Crossmatch 07/12/19 07/12/19 07/12/19 08:49 11:36 18:15 WBC RBC Hgb Hct MCV MCH MCHC RDW Plt Count Lymph % (Auto) [place] % (Auto) Lymph # [place] # Baso # Seg Neutrophils % Seg Neuts % (Manual) Lymphocytes % (Manual) Monocytes % (Manual) Nucleated RBC % Seg Neutrophils # Seg Neutrophils # Man Lymphocytes # (Manual) Monocytes # (Manual) PT INR D-Dimer ABG pH ABG pO2 ABG HCO3 ABG O2 Saturation ABG Base Excess ABG Hemoglobin Oxyhemoglobin Sodium Potassium Chloride Carbon Dioxide BUN Creatinine Glucose POC Glucose 124 H 110 H Lactic Acid Calcium Magnesium Iron TIBC Ferritin AST ALT Lactate Dehydrogenase Troponin T C-Reactive Protein Total Protein Albumin Cholesterol LDL Cholesterol Direct HDL Cholesterol Urine WBC (Auto) Vancomycin Trough Coronavirus (PCR) Crossmatch See Detail 07/12/19 07/13/19 07/13/19 23:16 05:26 06:50 WBC 23.9 H RBC 2.58 L Hgb 6.9 L Hct 21.5 L MCV 83 L MCH 27 L MCHC RDW 19.0 H Plt Count Lymph % (Auto) [place] % (Auto) Lymph # [place] # Baso # Seg Neutrophils % Seg Neuts % (Manual) 96.0 H Lymphocytes % (Manual) 3.0 L Monocytes % (Manual) Nucleated RBC % Seg Neutrophils # Seg Neutrophils # Man 22.9 H Lymphocytes # (Manual) 0.7 L Monocytes # (Manual) PT INR D-Dimer ABG pH ABG pO2 ABG HCO3 ABG O2 Saturation ABG Base Excess ABG Hemoglobin Oxyhemoglobin Sodium Potassium Chloride Carbon Dioxide BUN Creatinine Glucose POC Glucose 108 H 126 H Lactic Acid Calcium Magnesium Iron TIBC Ferritin AST ALT Lactate Dehydrogenase Troponin T C-Reactive Protein Total Protein Albumin Cholesterol LDL Cholesterol Direct HDL Cholesterol Urine WBC (Auto) Vancomycin Trough Coronavirus (PCR) Crossmatch 07/13/19 07/13/19 07/13/19 06:50 12:38 18:05 WBC RBC Hgb Hct MCV MCH MCHC RDW Plt Count Lymph % (Auto) [place] % (Auto) Lymph # [place] # Baso # Seg Neutrophils % Seg Neuts % (Manual) Lymphocytes % (Manual) Monocytes % (Manual) Nucleated RBC % Seg Neutrophils # Seg Neutrophils # Man Lymphocytes # (Manual) Monocytes # (Manual) PT INR D-Dimer ABG pH ABG pO2 ABG HCO3 ABG O2 Saturation ABG Base Excess ABG Hemoglobin Oxyhemoglobin Sodium Potassium Chloride Carbon Dioxide BUN 33 H Creatinine 0.5 L Glucose 136 H POC Glucose 164 H 145 H Lactic Acid Calcium Magnesium Iron TIBC Ferritin AST ALT Lactate Dehydrogenase Troponin T C-Reactive Protein Total Protein Albumin Cholesterol LDL Cholesterol Direct HDL Cholesterol Urine WBC (Auto) Vancomycin Trough Coronavirus (PCR) Crossmatch 07/13/19 07/14/19 07/14/19 18:30 00:21 04:40 WBC 22.9 H RBC 2.45 L Hgb 6.6 L Hct 21.1 L MCV MCH 27 L MCHC 31 L RDW 19.2 H Plt Count Lymph % (Auto) [place] % (Auto) Lymph # [place] # Baso # Seg Neutrophils % Seg Neuts % (Manual) 91.0 H Lymphocytes % (Manual) 7.0 L Monocytes % (Manual) Nucleated RBC % Seg Neutrophils # Seg Neutrophils # Man 20.8 H Lymphocytes # (Manual) Monocytes # (Manual) PT INR D-Dimer ABG pH ABG pO2 58.1 L ABG HCO3 ABG O2 Saturation 88.7 L ABG Base Excess ABG Hemoglobin 7.8 L Oxyhemoglobin 86.8 L Sodium Potassium Chloride Carbon Dioxide BUN Creatinine Glucose POC Glucose 118 H Lactic Acid Calcium Magnesium Iron TIBC Ferritin AST ALT Lactate Dehydrogenase Troponin T C-Reactive Protein Total Protein Albumin Cholesterol LDL Cholesterol Direct HDL Cholesterol Urine WBC (Auto) Vancomycin Trough Coronavirus (PCR) Crossmatch 07/14/19 07/14/19 07/14/19 04:40 05:38 05:45 WBC RBC Hgb Hct MCV MCH MCHC RDW Plt Count Lymph % (Auto) [place] % (Auto) Lymph # [place] # Baso # Seg Neutrophils % Seg Neuts % (Manual) Lymphocytes % (Manual) Monocytes % (Manual) Nucleated RBC % Seg Neutrophils # Seg Neutrophils # Man Lymphocytes # (Manual) Monocytes # (Manual) PT INR D-Dimer ABG pH 7.230 L ABG pO2 72.1 L ABG HCO3 ABG O2 Saturation 89.3 L ABG Base Excess -2.7 L ABG Hemoglobin 6.7 L Oxyhemoglobin 87.7 L Sodium Potassium Chloride 107.4 H Carbon Dioxide BUN 45 H Creatinine Glucose 101 H POC Glucose 154 H Lactic Acid Calcium Magnesium Iron TIBC Ferritin AST ALT Lactate Dehydrogenase Troponin T C-Reactive Protein Total Protein Albumin Cholesterol LDL Cholesterol Direct HDL Cholesterol Urine WBC (Auto) Vancomycin Trough Coronavirus (PCR) Crossmatch 07/14/19 07/14/19 07/14/19 12:25 18:20 19:01 WBC 22.4 H RBC 2.70 L Hgb 7.5 L Hct 23.3 L MCV MCH MCHC RDW 19.5 H Plt Count Lymph % (Auto) [place] % (Auto) Lymph # [place] # Baso # Seg Neutrophils % Seg Neuts % (Manual) Lymphocytes % (Manual) Monocytes % (Manual) Nucleated RBC % Seg Neutrophils # Seg Neutrophils # Man Lymphocytes # (Manual) Monocytes # (Manual) PT INR D-Dimer ABG pH ABG pO2 ABG HCO3 ABG O2 Saturation ABG Base Excess ABG Hemoglobin Oxyhemoglobin Sodium Potassium Chloride Carbon Dioxide BUN Creatinine Glucose POC Glucose 136 H 131 H Lactic Acid Calcium Magnesium Iron TIBC Ferritin AST ALT Lactate Dehydrogenase Troponin T C-Reactive Protein Total Protein Albumin Cholesterol LDL Cholesterol Direct HDL Cholesterol Urine WBC (Auto) Vancomycin Trough Coronavirus (PCR) Crossmatch 07/15/19 07/15/19 07/15/19 00:17 04:35 05:18 WBC 20.6 H RBC 2.41 L Hgb 6.8 L Hct 20.7 L MCV MCH MCHC RDW 20.2 H Plt Count Lymph % (Auto) [place] % (Auto) Lymph # [place] # Baso # Seg Neutrophils % Seg Neuts % (Manual) 92.0 H Lymphocytes % (Manual) 5.0 L Monocytes % (Manual) Nucleated RBC % Seg Neutrophils # Seg Neutrophils # Man 19.0 H Lymphocytes # (Manual) 1.0 L Monocytes # (Manual) PT INR D-Dimer ABG pH 7.342 L ABG pO2 ABG HCO3 ABG O2 Saturation ABG Base Excess -3.1 L ABG Hemoglobin 7.2 L Oxyhemoglobin 94.9 L Sodium Potassium Chloride Carbon Dioxide BUN Creatinine Glucose POC Glucose 116 H Lactic Acid Calcium Magnesium Iron TIBC Ferritin AST ALT Lactate Dehydrogenase Troponin T C-Reactive Protein Total Protein Albumin Cholesterol LDL Cholesterol Direct HDL Cholesterol Urine WBC (Auto) Vancomycin Trough Coronavirus (PCR) Crossmatch 07/15/19 07/15/19 07/15/19 05:18 05:57 11:28 WBC RBC Hgb Hct MCV MCH MCHC RDW Plt Count Lymph % (Auto) [place] % (Auto) Lymph # [place] # Baso # Seg Neutrophils % Seg Neuts % (Manual) Lymphocytes % (Manual) Monocytes % (Manual) Nucleated RBC % Seg Neutrophils # Seg Neutrophils # Man Lymphocytes # (Manual) Monocytes # (Manual) PT INR D-Dimer ABG pH ABG pO2 ABG HCO3 ABG O2 Saturation ABG Base Excess ABG Hemoglobin Oxyhemoglobin Sodium Potassium Chloride Carbon Dioxide 20 L BUN 59 H Creatinine Glucose 140 H POC Glucose 139 H 117 H Lactic Acid Calcium Magnesium Iron TIBC Ferritin AST ALT Lactate Dehydrogenase Troponin T C-Reactive Protein Total Protein Albumin Cholesterol LDL Cholesterol Direct HDL Cholesterol Urine WBC (Auto) Vancomycin Trough Coronavirus (PCR) Crossmatch 07/15/19 07/16/19 07/16/19 18:13 00:06 03:43 WBC RBC Hgb Hct MCV MCH MCHC RDW Plt Count Lymph % (Auto) [place] % (Auto) Lymph # [place] # Baso # Seg Neutrophils % Seg Neuts % (Manual) Lymphocytes % (Manual) Monocytes % (Manual) Nucleated RBC % Seg Neutrophils # Seg Neutrophils # Man Lymphocytes # (Manual) Monocytes # (Manual) PT INR D-Dimer ABG pH 7.344 L ABG pO2 68.6 L ABG HCO3 ABG O2 Saturation ABG Base Excess -3.5 L ABG Hemoglobin 6.1 L Oxyhemoglobin 93.3 L Sodium Potassium Chloride Carbon Dioxide BUN Creatinine Glucose POC Glucose 114 H 119 H Lactic Acid Calcium Magnesium Iron TIBC Ferritin AST ALT Lactate Dehydrogenase Troponin T C-Reactive Protein Total Protein Albumin Cholesterol LDL Cholesterol Direct HDL Cholesterol Urine WBC (Auto) Vancomycin Trough Coronavirus (PCR) Crossmatch 07/16/19 07/16/19 07/16/19 04:41 04:41 12:09 WBC 19.6 H RBC 2.81 L Hgb 7.7 L Hct 24.0 L MCV MCH 27 L MCHC RDW 19.4 H Plt Count 514 H Lymph % (Auto) 6.7 L [place] % (Auto) Lymph # [place] # 1.0 H Baso # Seg Neutrophils % 87.0 H Seg Neuts % (Manual) Lymphocytes % (Manual) Monocytes % (Manual) Nucleated RBC % Seg Neutrophils # 17.0 H Seg Neutrophils # Man Lymphocytes # (Manual) Monocytes # (Manual) PT INR D-Dimer ABG pH ABG pO2 ABG HCO3 ABG O2 Saturation ABG Base Excess ABG Hemoglobin Oxyhemoglobin Sodium Potassium 5.9 H Chloride Carbon Dioxide 21 L BUN 73 H Creatinine 2.0 H Glucose POC Glucose 141 H Lactic Acid Calcium Magnesium Iron TIBC Ferritin AST ALT Lactate Dehydrogenase Troponin T C-Reactive Protein Total Protein Albumin Cholesterol LDL Cholesterol Direct HDL Cholesterol Urine WBC (Auto) Vancomycin Trough Coronavirus (PCR) Crossmatch 07/16/19 07/16/19 07/17/19 16:19 17:45 00:16 WBC RBC Hgb Hct MCV MCH MCHC RDW Plt Count Lymph % (Auto) [place] % (Auto) Lymph # [place] # Baso # Seg Neutrophils % Seg Neuts % (Manual) Lymphocytes % (Manual) Monocytes % (Manual) Nucleated RBC % Seg Neutrophils # Seg Neutrophils # Man Lymphocytes # (Manual) Monocytes # (Manual) PT INR D-Dimer ABG pH ABG pO2 ABG HCO3 ABG O2 Saturation ABG Base Excess ABG Hemoglobin Oxyhemoglobin Sodium Potassium 5.1 H Chloride Carbon Dioxide 20 L BUN 72 H Creatinine 1.7 H Glucose 128 H POC Glucose 181 H 164 H Lactic Acid Calcium Magnesium Iron TIBC Ferritin AST ALT Lactate Dehydrogenase Troponin T C-Reactive Protein Total Protein Albumin Cholesterol LDL Cholesterol Direct HDL Cholesterol Urine WBC (Auto) Vancomycin Trough Coronavirus (PCR) Crossmatch 07/17/19 07/17/19 07/17/19 04:20 04:39 04:39 WBC 16.1 H RBC 2.92 L Hgb 8.0 L Hct 25.5 L MCV MCH MCHC 31 L RDW 19.7 H Plt Count 564 H Lymph % (Auto) 3.6 L [place] % (Auto) 7.4 H Lymph # 0.6 L [place] # 1.2 H Baso # Seg Neutrophils % 87.5 H Seg Neuts % (Manual) Lymphocytes % (Manual) Monocytes % (Manual) Nucleated RBC % Seg Neutrophils # 14.1 H Seg Neutrophils # Man Lymphocytes # (Manual) Monocytes # (Manual) PT INR D-Dimer ABG pH 7.231 L ABG pO2 95.3 H ABG HCO3 ABG O2 Saturation ABG Base Excess -5.0 L ABG Hemoglobin 7.9 L Oxyhemoglobin 94.8 L Sodium Potassium Chloride 107.8 H Carbon Dioxide 21 L BUN 68 H Creatinine Glucose POC Glucose Lactic Acid Calcium Magnesium Iron TIBC Ferritin AST ALT Lactate Dehydrogenase Troponin T C-Reactive Protein Total Protein Albumin Cholesterol LDL Cholesterol Direct HDL Cholesterol Urine WBC (Auto) Vancomycin Trough Coronavirus (PCR) Crossmatch 07/17/19 07/17/19 07/17/19 05:28 12:11 18:48 WBC RBC Hgb Hct MCV MCH MCHC RDW Plt Count Lymph % (Auto) [place] % (Auto) Lymph # [place] # Baso # Seg Neutrophils % Seg Neuts % (Manual) Lymphocytes % (Manual) Monocytes % (Manual) Nucleated RBC % Seg Neutrophils # Seg Neutrophils # Man Lymphocytes # (Manual) Monocytes # (Manual) PT INR D-Dimer ABG pH ABG pO2 ABG HCO3 ABG O2 Saturation ABG Base Excess ABG Hemoglobin Oxyhemoglobin Sodium Potassium Chloride Carbon Dioxide BUN Creatinine Glucose POC Glucose 121 H 125 H 174 H Lactic Acid Calcium Magnesium Iron TIBC Ferritin AST ALT Lactate Dehydrogenase Troponin T C-Reactive Protein Total Protein Albumin Cholesterol LDL Cholesterol Direct HDL Cholesterol Urine WBC (Auto) Vancomycin Trough Coronavirus (PCR) Crossmatch 07/17/19 07/17/19 07/18/19 19:55 23:57 02:30 WBC RBC Hgb Hct MCV MCH MCHC RDW Plt Count Lymph % (Auto) [place] % (Auto) Lymph # [place] # Baso # Seg Neutrophils % Seg Neuts % (Manual) Lymphocytes % (Manual) Monocytes % (Manual) Nucleated RBC % Seg Neutrophils # Seg Neutrophils # Man Lymphocytes # (Manual) Monocytes # (Manual) PT INR D-Dimer ABG pH 7.344 L 7.294 L ABG pO2 78.5 L 119.2 H ABG HCO3 ABG O2 Saturation ABG Base Excess -3.3 L -2.6 L ABG Hemoglobin 8.6 L 8.1 L Oxyhemoglobin 94.8 L Sodium Potassium Chloride Carbon Dioxide BUN Creatinine Glucose POC Glucose 148 H Lactic Acid Calcium Magnesium Iron TIBC Ferritin AST ALT Lactate Dehydrogenase Troponin T C-Reactive Protein Total Protein Albumin Cholesterol LDL Cholesterol Direct HDL Cholesterol Urine WBC (Auto) Vancomycin Trough Coronavirus (PCR) Crossmatch 07/18/19 07/18/19 07/18/19 04:49 05:22 05:22 WBC 15.9 H RBC 3.00 L Hgb 8.1 L Hct 26.0 L MCV MCH 27 L MCHC 31 L RDW 19.4 H Plt Count 733 H Lymph % (Auto) 6.3 L [place] % (Auto) 7.4 H Lymph # 1.0 L [place] # 1.2 H Baso # 0.2 H Seg Neutrophils % 83.8 H Seg Neuts % (Manual) Lymphocytes % (Manual) Monocytes % (Manual) Nucleated RBC % Seg Neutrophils # 13.3 H Seg Neutrophils # Man Lymphocytes # (Manual) Monocytes # (Manual) PT INR D-Dimer ABG pH ABG pO2 ABG HCO3 ABG O2 Saturation ABG Base Excess ABG Hemoglobin Oxyhemoglobin Sodium Potassium Chloride 110.6 H Carbon Dioxide BUN 61 H Creatinine Glucose 109 H POC Glucose 116 H Lactic Acid Calcium Magnesium Iron TIBC Ferritin AST ALT Lactate Dehydrogenase Troponin T C-Reactive Protein Total Protein Albumin Cholesterol LDL Cholesterol Direct HDL Cholesterol Urine WBC (Auto) Vancomycin Trough Coronavirus (PCR) Crossmatch 07/18/19 07/18/19 07/18/19 12:23 18:06 22:20 WBC RBC Hgb Hct MCV MCH MCHC RDW Plt Count Lymph % (Auto) [place] % (Auto) Lymph # [place] # Baso # Seg Neutrophils % Seg Neuts % (Manual) Lymphocytes % (Manual) Monocytes % (Manual) Nucleated RBC % Seg Neutrophils # Seg Neutrophils # Man Lymphocytes # (Manual) Monocytes # (Manual) PT INR D-Dimer ABG pH 7.338 L ABG pO2 135.1 H ABG HCO3 ABG O2 Saturation ABG Base Excess ABG Hemoglobin 9.2 L Oxyhemoglobin Sodium Potassium Chloride Carbon Dioxide BUN Creatinine Glucose POC Glucose 114 H 113 H Lactic Acid Calcium Magnesium Iron TIBC Ferritin AST ALT Lactate Dehydrogenase Troponin T C-Reactive Protein Total Protein Albumin Cholesterol LDL Cholesterol Direct HDL Cholesterol Urine WBC (Auto) Vancomycin Trough Coronavirus (PCR) Crossmatch 07/18/19 07/19/19 07/19/19 23:33 03:45 05:18 WBC RBC Hgb Hct MCV MCH MCHC RDW Plt Count Lymph % (Auto) [place] % (Auto) Lymph # [place] # Baso # Seg Neutrophils % Seg Neuts % (Manual) Lymphocytes % (Manual) Monocytes % (Manual) Nucleated RBC % Seg Neutrophils # Seg Neutrophils # Man Lymphocytes # (Manual) Monocytes # (Manual) PT INR D-Dimer ABG pH 7.342 L ABG pO2 95.0 H ABG HCO3 ABG O2 Saturation ABG Base Excess ABG Hemoglobin 8.5 L Oxyhemoglobin Sodium Potassium Chloride Carbon Dioxide BUN Creatinine Glucose POC Glucose 125 H 111 H Lactic Acid Calcium Magnesium Iron TIBC Ferritin AST ALT Lactate Dehydrogenase Troponin T C-Reactive Protein Total Protein Albumin Cholesterol LDL Cholesterol Direct HDL Cholesterol Urine WBC (Auto) Vancomycin Trough Coronavirus (PCR) Crossmatch 07/19/19 07/19/19 07/19/19 08:45 08:45 11:47 WBC 15.9 H RBC 3.31 L Hgb 9.1 L Hct 28.4 L MCV MCH 27 L MCHC RDW 19.1 H Plt Count 858 H Lymph % (Auto) 4.9 L [place] % (Auto) 8.1 H Lymph # 0.8 L [place] # 1.3 H Baso # Seg Neutrophils % 85.5 H Seg Neuts % (Manual) Lymphocytes % (Manual) Monocytes % (Manual) Nucleated RBC % Seg Neutrophils # 13.6 H Seg Neutrophils # Man Lymphocytes # (Manual) Monocytes # (Manual) PT INR D-Dimer ABG pH ABG pO2 ABG HCO3 ABG O2 Saturation ABG Base Excess ABG Hemoglobin Oxyhemoglobin Sodium Potassium Chloride 111.6 H Carbon Dioxide BUN 50 H Creatinine 0.7 L Glucose 118 H POC Glucose 114 H Lactic Acid Calcium Magnesium Iron TIBC Ferritin AST ALT Lactate Dehydrogenase Troponin T C-Reactive Protein Total Protein Albumin Cholesterol LDL Cholesterol Direct HDL Cholesterol Urine WBC (Auto) Vancomycin Trough Coronavirus (PCR) Crossmatch 07/19/19 07/19/19 07/20/19 18:25 23:44 04:39 WBC RBC Hgb Hct MCV MCH MCHC RDW Plt Count Lymph % (Auto) [place] % (Auto) Lymph # [place] # Baso # Seg Neutrophils % Seg Neuts % (Manual) Lymphocytes % (Manual) Monocytes % (Manual) Nucleated RBC % Seg Neutrophils # Seg Neutrophils # Man Lymphocytes # (Manual) Monocytes # (Manual) PT INR D-Dimer ABG pH ABG pO2 ABG HCO3 ABG O2 Saturation ABG Base Excess ABG Hemoglobin Oxyhemoglobin Sodium Potassium Chloride 110.3 H Carbon Dioxide BUN 44 H Creatinine 0.6 L Glucose 120 H POC Glucose 115 H 117 H Lactic Acid Calcium Magnesium Iron TIBC Ferritin AST ALT Lactate Dehydrogenase Troponin T C-Reactive Protein Total Protein Albumin Cholesterol LDL Cholesterol Direct HDL Cholesterol Urine WBC (Auto) Vancomycin Trough Coronavirus (PCR) Crossmatch 07/20/19 07/21/19 07/21/19 05:30 11:59 17:40 WBC RBC Hgb Hct MCV MCH MCHC RDW Plt Count Lymph % (Auto) [place] % (Auto) Lymph # [place] # Baso # Seg Neutrophils % Seg Neuts % (Manual) Lymphocytes % (Manual) Monocytes % (Manual) Nucleated RBC % Seg Neutrophils # Seg Neutrophils # Man Lymphocytes # (Manual) Monocytes # (Manual) PT INR D-Dimer ABG pH ABG pO2 ABG HCO3 ABG O2 Saturation ABG Base Excess ABG Hemoglobin Oxyhemoglobin Sodium Potassium Chloride Carbon Dioxide BUN Creatinine Glucose POC Glucose 131 H 122 H 125 H Lactic Acid Calcium Magnesium Iron TIBC Ferritin AST ALT Lactate Dehydrogenase Troponin T C-Reactive Protein Total Protein Albumin Cholesterol LDL Cholesterol Direct HDL Cholesterol Urine WBC (Auto) Vancomycin Trough Coronavirus (PCR) Crossmatch 07/22/19 07/22/19 07/22/19 05:38 05:38 12:29 WBC 12.6 H RBC 3.19 L Hgb 8.9 L Hct 27.5 L MCV MCH MCHC RDW 18.9 H Plt Count 1101 H* Lymph % (Auto) [place] % (Auto) 12.2 H Lymph # [place] # 1.5 H Baso # Seg Neutrophils % 72.8 H Seg Neuts % (Manual) 76.0 H Lymphocytes % (Manual) 7.0 L Monocytes % (Manual) 14.0 H Nucleated RBC % 1.0 H Seg Neutrophils # 9.2 H Seg Neutrophils # Man 9.6 H Lymphocytes # (Manual) 0.9 L Monocytes # (Manual) 1.8 H PT INR D-Dimer ABG pH ABG pO2 ABG HCO3 ABG O2 Saturation ABG Base Excess ABG Hemoglobin Oxyhemoglobin Sodium Potassium 3.4 L Chloride Carbon Dioxide BUN 29 H Creatinine 0.5 L Glucose POC Glucose 116 H Lactic Acid Calcium Magnesium Iron TIBC Ferritin AST ALT Lactate Dehydrogenase Troponin T C-Reactive Protein Total Protein Albumin Cholesterol LDL Cholesterol Direct HDL Cholesterol Urine WBC (Auto) Vancomycin Trough Coronavirus (PCR) Crossmatch 07/22/19 07/22/19 07/23/19 18:20 23:51 04:52 WBC RBC Hgb Hct MCV MCH MCHC RDW Plt Count Lymph % (Auto) [place] % (Auto) Lymph # [place] # Baso # Seg Neutrophils % Seg Neuts % (Manual) Lymphocytes % (Manual) Monocytes % (Manual) Nucleated RBC % Seg Neutrophils # Seg Neutrophils # Man Lymphocytes # (Manual) Monocytes # (Manual) PT INR D-Dimer ABG pH ABG pO2 ABG HCO3 ABG O2 Saturation ABG Base Excess ABG Hemoglobin Oxyhemoglobin Sodium Potassium Chloride Carbon Dioxide BUN 24 H Creatinine 0.4 L Glucose POC Glucose 107 H 110 H Lactic Acid Calcium Magnesium Iron TIBC Ferritin AST ALT Lactate Dehydrogenase Troponin T C-Reactive Protein Total Protein Albumin Cholesterol LDL Cholesterol Direct HDL Cholesterol Urine WBC (Auto) Vancomycin Trough Coronavirus (PCR) Crossmatch 07/23/19 07/23/19 07/24/19 06:00 23:15 04:40 WBC RBC Hgb Hct MCV MCH MCHC RDW Plt Count Lymph % (Auto) [place] % (Auto) Lymph # [place] # Baso # Seg Neutrophils % Seg Neuts % (Manual) Lymphocytes % (Manual) Monocytes % (Manual) Nucleated RBC % Seg Neutrophils # Seg Neutrophils # Man Lymphocytes # (Manual) Monocytes # (Manual) PT INR D-Dimer ABG pH ABG pO2 73.5 L ABG HCO3 27.0 H 28.5 H ABG O2 Saturation 94.5 L ABG Base Excess ABG Hemoglobin 9.4 L 8.9 L Oxyhemoglobin 94.0 L 92.7 L Sodium Potassium Chloride Carbon Dioxide BUN Creatinine Glucose POC Glucose 117 H Lactic Acid Calcium Magnesium Iron TIBC Ferritin AST ALT Lactate Dehydrogenase Troponin T C-Reactive Protein Total Protein Albumin Cholesterol LDL Cholesterol Direct HDL Cholesterol Urine WBC (Auto) Vancomycin Trough Coronavirus (PCR) Crossmatch 07/24/19 07/24/19 07/25/19 05:25 12:06 00:16 WBC RBC Hgb Hct MCV MCH MCHC RDW Plt Count Lymph % (Auto) [place] % (Auto) Lymph # [place] # Baso # Seg Neutrophils % Seg Neuts % (Manual) Lymphocytes % (Manual) Monocytes % (Manual) Nucleated RBC % Seg Neutrophils # Seg Neutrophils # Man Lymphocytes # (Manual) Monocytes # (Manual) PT INR D-Dimer ABG pH ABG pO2 ABG HCO3 ABG O2 Saturation ABG Base Excess ABG Hemoglobin Oxyhemoglobin Sodium Potassium Chloride Carbon Dioxide BUN Creatinine Glucose POC Glucose 114 H 108 H 106 H Lactic Acid Calcium Magnesium Iron TIBC Ferritin AST ALT Lactate Dehydrogenase Troponin T C-Reactive Protein Total Protein Albumin Cholesterol LDL Cholesterol Direct HDL Cholesterol Urine WBC (Auto) Vancomycin Trough Coronavirus (PCR) Crossmatch 07/25/19 07/25/19 07/25/19 05:14 05:14 05:17 WBC 17.8 H RBC 3.32 L Hgb 9.2 L Hct 28.6 L MCV MCH MCHC RDW 19.9 H Plt Count 994 H Lymph % (Auto) [place] % (Auto) Lymph # [place] # Baso # Seg Neutrophils % Seg Neuts % (Manual) 82.0 H Lymphocytes % (Manual) 5.0 L Monocytes % (Manual) Nucleated RBC % Seg Neutrophils # Seg Neutrophils # Man 14.6 H Lymphocytes # (Manual) 0.9 L Monocytes # (Manual) 1.2 H PT INR D-Dimer ABG pH ABG pO2 ABG HCO3 ABG O2 Saturation ABG Base Excess ABG Hemoglobin Oxyhemoglobin Sodium Potassium Chloride Carbon Dioxide BUN Creatinine 0.4 L Glucose 110 H POC Glucose 107 H Lactic Acid Calcium Magnesium Iron TIBC Ferritin AST ALT Lactate Dehydrogenase Troponin T C-Reactive Protein Total Protein Albumin Cholesterol LDL Cholesterol Direct HDL Cholesterol Urine WBC (Auto) Vancomycin Trough Coronavirus (PCR) Crossmatch 07/25/19 07/25/19 07/26/19 11:55 23:49 06:01 WBC RBC Hgb Hct MCV MCH MCHC RDW Plt Count Lymph % (Auto) [place] % (Auto) Lymph # [place] # Baso # Seg Neutrophils % Seg Neuts % (Manual) Lymphocytes % (Manual) Monocytes % (Manual) Nucleated RBC % Seg Neutrophils # Seg Neutrophils # Man Lymphocytes # (Manual) Monocytes # (Manual) PT INR D-Dimer ABG pH ABG pO2 ABG HCO3 ABG O2 Saturation ABG Base Excess ABG Hemoglobin Oxyhemoglobin Sodium Potassium Chloride Carbon Dioxide BUN Creatinine Glucose POC Glucose 123 H 118 H 106 H Lactic Acid Calcium Magnesium Iron TIBC Ferritin AST ALT Lactate Dehydrogenase Troponin T C-Reactive Protein Total Protein Albumin Cholesterol LDL Cholesterol Direct HDL Cholesterol Urine WBC (Auto) Vancomycin Trough Coronavirus (PCR) Crossmatch Allied health notes reviewed: nursing
--- NOTE | 2019-07-26 14:22 | Progress Note ---
Assessment and Plan Cultures: 07/03/2019 urine culture: No growth 07/03/2019 Tracheal aspirate: E.coli A/P: 69-year-old male with CVA, hypertension, dementia, schizophrenia, alcohol use disorder was admitted to the emergency room after being brought in by EMS with progressive shortness of breath and unresponsiveness. He was noted to have agonal breathing and a faint pulse requiring CPR. It seems patient was on hospice recently. #Shock, likely septic: Lactic acidosis. Remains off pressors. #Severe COVID-19 disease and pneumonia: Elevated markers. Completed Plaquenil. Completed Ceftriaxone for treatment E.coli in tracheal aspirate. #Acute respiratory failure: on mechanical ventilation. #Transaminitis: Likely from COVID-19, shock #Leucocytosis: ?reactive from above. Recs: continue supportive care for COVID-19 agree with DNR. Poor prognosis. Procal minimally elevated, even in setting of ESRD. Continue supportive care. Mekhi Barboza MD [facility] ([facility]) M: [phone] O: [phone] F: [phone] Subjective Date of service: 07/26/19 Principal diagnosis: Bilateral pneumonia, severe sepsis with septic shock, encephalopathy Interval history: Afebrile, no acute change today. Remains in the ICU. Objective - Exam Narrative Exam: Physical Exam (reviewed in chart due to PPE conservation) Constitutional: intubated, sedated, on the vent Head, Ears, Nose: normocephalic, atraumatic Eyes: limited due to PPE conservation strategy Neck: intubated Oral: intubated Cardiovascular: limited due to PPE conservation strategy Respiratory: limited due to PPE conservation strategy GI: limited due to PPE conservation strategy Musculoskeletal: limited due to PPE conservation strategy Skin: limited due to PPE conservation strategy Hem/Lymphatic: limited due to PPE conservation strategy Psych: no agitation Neurological: sedated, intubated, on the vent, exam limited - Constitutional Vitals: Vital Signs Temp Pulse Resp BP Pulse Ox 98.6 F 109 H 16 155/88 100 07/26/19 08:00 07/26/19 12:28 07/26/19 11:00 07/26/19 12:28 07/26/19 12:28 Temperature -Last 24 Hours Temperature 98.6 F Temperature 97.8 F Temperature 97.1 F Temperature 97.3 F Temperature 97.9 F - Labs CBC & Chem 7: 07/25/19 05:14 07/25/19 05:14 Labs: Abnormal lab results 07/25/19 07/26/19 Range/Units 23:49 06:01 POC Glucose 118 H 106 H (70-105)
[2019-07-26] MEDS: fentaNYL DRIP Premix 2,000 MCG/100 ML BAG IV SCH (17:17)
[2019-07-27] MEDS: levETIRAcetam 500 MG/5 ML ORAL LIQD FEEDTUBE SCH ×3 (00:22→22:24)
[2019-07-27] MEDS: DOCUSATE SODIUM 100 MG/10 ML ORAL LIQD PO SCH ×3 (00:22→22:24)
[2019-07-27] MEDS: FAMOTIDINE 20 MG TAB PO SCH ×3 (00:23→22:24)
[2019-07-27] MEDS: INSULIN LISPRO 100 UNIT/ML SUB-Q SCH ×5 (00:32→18:00)
[2019-07-27 05:51] LABS: ABG Base Excess 6.3 mmol/L (-2.0-3.0); ABG HCO3 31.3 mmol/L (20.0-26.0); ABG Methemoglobin 0.4 % (0.0-1.5); ABG Oxygen Saturation 92.7 % (95.0-99.0); ABG PCO2 48.2 mm Hg; ABG PH 7.43 pH Units (7.350-7.450); ABG PO2 63.4 mm Hg (80.0-90.0)
--- NOTE | 2019-07-27 08:54 | Progress Note ---
Assessment and Plan Assessment and plan: 69-year-old male patient with PMH of CVA with RHP, HTN, DM2, SCZ, Dementia, Alcohol use D/o, Seizure D/O, presents to the emergency department via EMS from home with progressive SOB and impending espiratory failure with an unresponsive . PT was intubated was admitted through emergency room to ICU treated for sepsis, b/l PNA, acute respiratory failure received antibiotics. Patient was tested positive for COVID19. Evaluated by ID , received antibiotics Plaquenil, and inflammatory markers were checked and followed. Patient was hypotensive requiring Levophed, continues to be hypotensive currently on Levophed, unable to wean remains intubated on ventilatory support, critically ill, DNR status howev er family wants full treatment. --COVid-19 infection with pneumonia with severe sepsis Received Plaquenil and cefepime, monitor off antibiotics ID following --Septic shock: On Levophed Persistent hypotension, titrate to systolic blood pressure more than 100 -- Acute respiratory Failure with Hypoxia Due to bilateral PNA with COVID 19 infection. On ventilatory support, unable to wean Pulmonary critical following --COPD with exacerbation Likely due to COVID-19 pneumonia Continue scheduled nebs --Anemia, Microcytic persistent s/p total 3 unit of PRBC, today Hb today 9.1 --Pressure Ulcers: POA buttocks, right lateral foot area wound and supportive care --Hyponatremia, resolved --DM type 2: Accu-Chek SCC tube feeding, insulin as needed --h/o HTN Essential, now hypotensive On Levophed --Seizure D/o/CVA/immobility/BIpolar D/o/SCZ Seizure precautions, antiepileptic medications --Severe PCM, TF supportive care, dietary following patient is DNR- Called and verified information Very poor prognosis, Recommend hospice 07/04: COVID +ve, start on plaquinil, called no answer 07/05: transfuse one unit PRBC, Hb dropped to ~6, called and updated 07/06; H&H stable, serum chemistry improved. On mechanical ventilation with high inflammatory markers. Continue Plaquenil and empiric antibiotics. ID following, prognosis remains guarded and extremely poor. 07/07: On mechanical ventilation with high inflammatory markers. Continue Plaquenil and empiric antibiotics. ID following, prognosis remains guarded and extremely poor. 07/08: Called today and verified the CODE STATUS. Patient remains DNR. He is still intubated, with poor prognosis. Continue to follow inflammatory markers. 07/09 wean off from vent as tolerated, completed empiric antibiotic and Plaqu enil 07/10 wean off from vent as tolerated. poor prognosis 07/11 hb 6.7 today, transfuse one PRBC. wean off from vent as tolerated. poor prognosis 07/12 remains critically on vent. Hb 6.9 07/13 Hb dropped to 6.6, transfuse 1 unit of PRBC, remains on vent critically ill Hypotensive, fluid bolus, if no improvement start Levophed 07/14; remains anemic with hemoglobin of 6.8, received total 3 units of PRBC Additional 1 unit of PRBC today, stool for occult blood to rule out GI causes Started back on Levophed due to hypotension 07/15; patient remains critically ill, hypotensive on Levophed 07/16: Today remains intubated on vent, persistent hypotension on Levophed 07/17; clinically no change, pressor dependent[on Levophed] DNR status 07/18: Patient remains hypotensive requiring Levophed, intubated on vent Unable to wean, critically ill. DNR 07/20/2019 Patient remains hypotensive requiring Levophed, intubated on vent. Patient currently with AC mode ventilation, rate 20, tidal volume 500, FiO2 40% and PEEP 6. Patient is a poor prognosis and apparently was on hospice recently. 07/21/2019. Patient with PEG tube that was clogged yesterday. surgery evaluated the patient and noted Very long PEG tubing with thick material inside. The entire tube was stripped and a large amount of formed tube feed was expressed. The tube was then flushed with sprite and flushed easily. Tube clamped. Patient currently with AC mode ventilation, rate 20, tidal volume 500, FiO2 40% and PEEP 6. Patient is a poor prognosis and apparently was on hospice recently. 07/22/2019. Patient currently with AC mode ventilation, rate 20, tidal volume 500, FiO2 30% and PEEP 6. Patient on sedation with fentanyl drip. Continue Levophed to maintain MAP greater than 65. Patient is a poor prognosis and apparently was on hospice recently. 07/23/2019. Patient currently with AC mode ventilation, rate 20, tidal volume 500, FiO2 30% and PEEP 6. Patient on sedation with fentanyl drip. Continue Levophed to maintain MAP greater than 65. Patient is a poor prognosis and apparently was on hospice recently. 07/24/2019 Patient with Covid-19 infection with pneumonia, acute respiratory failure, intubated on ventilator. No more fever. Continue current management. 07/25/2019 Patient with Covid-19 infection with pneumonia, acute respiratory fail ure, intubated on ventilator. fever is now resolved. Sedated with propofol 07/26/2019 Patient with covid-19 infection. Still intubated, on vent. 07/27/2019 Patient with Covid-19. he is still critically ill. patient has DNR order. 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 The aggregate critical care time was [34] minutes. This ti me is in addition to time spent performing reported procedures but includes the following: [x] Data Review and interpretation [x] Patient assessment and monitoring of vital signs [x] Documentation [x] Medication orders and management History Interval history: Patient with Covid-19 infection Still intubated No more fever Hospitalist Physical - Physical exam Narrative exam: GEN: Not in acute distress, intubated,obese HEENT: Normocephalic, atraumatic, Neck: supple, No JVD Lungs: Bilateral crackles, heart;S1 and S2 reg, no murmurs, rubs or gallop Abd:soft, non tender, non distended, normal bowel sounds,PEG tube Ext: No edema, no clubbing, no cyanosis, Neuro: Intubated, on ventilator,sedated - Constitutional Vitals: Temp Pulse Resp BP Pulse Ox 97.5 F L 100 H 20 150/74 98 07/27/19 08:16 07/27/19 06:01 07/27/19 06:01 07/27/19 06:01 07/27/19 06:01 General appearance: Present: no acute distress, well-nourished, other (Orally intubated on vent) Results - Labs CBC & Chem 7: 07/25/19 05:14 07/25/19 05:14 Labs: Laboratory Last Values WBC 17.8 K/mm3 (4.5-11.0) H 07/25/19 05:14 RBC 3.32 M/mm3 (3.65-5.03) L 07/25/19 05:14 Hgb 9.2 gm/dl (11.8-15.2) L 07/25/19 05:14 Hct 28.6 % (35.5-45.6) L 07/25/19 05:14 MCV 86 fl (84-94) 07/25/19 05:14 MCH 28 pg (28-32) 07/25/19 05:14 MCHC 32 % (32-34) 07/25/19 05:14 RDW 19.9 % (13.2-15.2) H 07/25/19 05:14 Plt Count 994 K/mm3 (140-440) H 07/25/19 05:14 Lymph % (Auto) 4.9 % (13.4-35.0) L 07/19/19 08:45 [place] % (Auto) 12.2 % (0.0-7.3) H 07/22/19 05:38 Eos % (Auto) 1.0 % (0.0-4.3) 07/19/19 08:45 Baso % (Auto) 0.5 % (0.0-1.8) 07/19/19 08:45 Lymph # 0.8 K/mm3 (1.2-5.4) L 07/19/19 08:45 [place] # 1.5 K/mm3 (0.0-0.8) H 07/22/19 05:38 Eos # 0.2 K/mm3 (0.0-0.4) 07/19/19 08:45 Baso # 0.1 K/mm3 (0.0-0.1) 07/19/19 08:45 Add Manual Diff Complete 07/25/19 05:14 Total Counted 100 07/25/19 05:14 Seg Neutrophils % 72.8 % (40.0-70.0) H 07/22/19 05:38 Seg Neuts % (Manual) 82.0 % (40.0-70.0) H 07/25/19 05:14 Band Neutrophils % 3.0 % 07/25/19 05:14 Lymphocytes % (Manual) 5.0 % (13.4-35.0) L 07/25/19 05:14 Reactive Lymphs % (Man) 0 % 07/25/19 05:14 Monocytes % (Manual) 7.0 % (0.0-7.3) 07/25/19 05:14 Eosinophils % (Manual) 2.0 % (0.0-4.3) 07/25/19 05:14 Basophils % (Manual) 0 % (0.0-1.8) 07/25/19 05:14 Metamyelocytes % 1.0 % 07/25/19 05:14 Myelocytes % 0 % 07/25/19 05:14 Promyelocytes % 0 % 07/25/19 05:14 Blast Cells % 0 % 07/25/19 05:14 Nucleated RBC % Not Reportable 07/25/19 05:14 Seg Neutrophils # 9.2 K/mm3 (1.8-7.7) H 07/22/19 05:38 Seg Neutrophils # Man 14.6 K/mm3 (1.8-7.7) H 07/25/19 05:14 Band Neutrophils # 0.5 K/mm3 07/25/19 05:14 Lymphocytes # (Manual) 0.9 K/mm3 (1.2-5.4) L 07/25/19 05:14 Abs React Lymphs (Man) 0.0 K/mm3 07/25/19 05:14 Monocytes # (Manual) 1.2 K/mm3 (0.0-0.8) H 07/25/19 05:14 Eosinophils # (Manual) 0.4 K/mm3 (0.0-0.4) 07/25/19 05:14 Basophils # (Manual) 0.0 K/mm3 (0.0-0.1) 07/25/19 05:14 Metamyelocytes # 0.2 K/mm3 07/25/19 05:14 Myelocytes # 0.0 K/mm3 07/25/19 05:14 Promyelocytes # 0.0 K/mm3 07/25/19 05:14 Blast Cells # 0.0 K/mm3 07/25/19 05:14 WBC Morphology Not Reportable 07/25/19 05:14 Hypersegmented Neuts Not Reportable 07/25/19 05:14 Hyposegmented Neuts Not Reportable 07/25/19 05:14 Hypogranular Neuts Not Reportable 07/25/19 05:14 Smudge Cells Not Reportable 07/25/19 05:14 Toxic Granulation Not Reportable 07/25/19 05:14 Toxic Vacuolation Not Reportable 07/25/19 05:14 Dohle Bodies Not Reportable 07/25/19 05:14 Pelger-Huet Anomaly Not Reportable 07/25/19 05:14 Mendy Rods Not Reportable 07/25/19 05:14 Platelet Estimate Consistent w auto 07/25/19 05:14 Clumped Platelets Not Reportable 07/25/19 05:14 Plt Clumps, EDTA Not Reportable 07/25/19 05:14 Large Platelets Not Reportable 07/25/19 05:14 Giant Platelets Not Reportable 07/25/19 05:14 Platelet Satelliting Not Reportable 07/25/19 05:14 Plt Morphology Comment Not Reportable 07/25/19 05:14 RBC Morphology Not Reportable 07/25/19 05:14 Dimorphic RBCs Not Reportable 07/25/19 05:14 Polychromasia Rare 07/25/19 05:14 Hypochromasia Rare 07/25/19 05:14 Poikilocytosis Not Reportable 07/25/19 05:14 Anisocytosis Few 07/25/19 05:14 Microcytosis Not Reportable 07/25/19 05:14 Macrocytosis Not Reportable 07/25/19 05:14 Spherocytes Not Reportable 07/25/19 05:14 Pappenheimer Bodies Not Reportable 07/25/19 05:14 Sickle Cells Not Reportable 07/25/19 05:14 Target Cells Not Reportable 07/25/19 05:14 Tear Drop Cells Not Reportable 07/25/19 05:14 Ovalocytes Not Reportable 07/25/19 05:14 Helmet Cells Not Reportable 07/25/19 05:14 [place] Bodies Not Reportable 07/25/19 05:14 [place] Rings Not Reportable 07/25/19 05:14 [place] Cells Not Reportable 07/25/19 05:14 Bite Cells Not Reportable 07/25/19 05:14 Crenated Cell Not Reportable 07/25/19 05:14 Elliptocytes Rare 07/25/19 05:14 Acanthocytes (Spur) Not Reportable 07/25/19 05:14 Rouleaux Not Reportable 07/25/19 05:14 Hemoglobin C Crystals Not Reportable 07/25/19 05:14 Schistocytes Not Reportable 07/25/19 05:14 Malaria parasites Not Reportable 07/25/19 05:14 Jeevan Bodies Not Reportable 07/25/19 05:14 Hem Pathologist Commnt No 07/25/19 05:14 PT 16.0 Sec. (12.2-14.9) H 07/03/19 22:20 INR 1.26 (0.87-1.13) H 07/03/19 22:20 D-Dimer 1142.18 ng/mlDDU (0-234) H 07/08/19 00:45 ABG pH 7.430 pH Units (7.350-7.450) 07/27/19 05:16 ABG pCO2 48.2 mm Hg 07/27/19 05:16 ABG pO2 63.4 mm Hg (80.0-90.0) L 07/27/19 05:16 ABG HCO3 31.3 mmol/L (20.0-26.0) H 07/27/19 05:16 ABG O2 Saturation 92.7 % (95.0-99.0) L 07/27/19 05:16 ABG O2 Content 9.8 (0.0-44) 07/27/19 05:16 ABG Base Excess 6.3 mmol/L (-2.0-3.0) H 07/27/19 05:16 ABG Hemoglobin 7.6 gm/dl (14.0-18.0) L 07/27/19 05:16 ABG Carboxyhemoglobin 1.6 % (0.0-5.0) 07/27/19 05:16 ABG Methemoglobin 0.4 % (0.0-1.5) 07/27/19 05:16 Oxyhemoglobin 90.9 % (95.0-99.0) L 07/27/19 05:16 FiO2 25 % 07/27/19 05:16 Sodium 137 mmol/L (137-145) 07/25/19 05:14 Potassium 3.8 mmol/L (3.6-5.0) 07/25/19 05:14 Chloride 103.2 mmol/L (98-107) 07/25/19 05:14 Carbon Dioxide 27 mmol/L (22-30) 07/25/19 05:14 Anion Gap 11 mmol/L 07/25/19 05:14 BUN 18 mg/dL (9-20) 07/25/19 05:14 Creatinine 0.4 mg/dL (0.8-1.5) L 07/25/19 05:14 Estimated GFR > 60 ml/min 07/25/19 05:14 BUN/Creatinine Ratio 45 % 07/25/19 05:14 Glucose 110 mg/dL (75-100) H 07/25/19 05:14 POC Glucose 88 (70-105) 07/27/19 05:38 Osmolality 268 Mosm/kg 07/05/19 04:00 Lactic Acid 3.30 mmol/L (0.7-2.0) H* 07/04/19 07:05 Uric Acid 7.2 mg/dL (3.5-7.6) 07/05/19 04:00 Calcium 9.3 mg/dL (8.4-10.2) 07/25/19 05:14 Phosphorus 3.60 mg/dL (2.5-4.5) 07/05/19 04:00 Magnesium 1.80 mg/dL (1.7-2.3) 07/11/19 05:14 Iron 9 ug/dL (49-181) L 07/04/19 07:05 TIBC 97 mcg/dL (250-450) L 07/04/19 07:05 Ferritin 839.0 ng/mL (13.0-400.0) H 07/08/19 00:45 Total Bilirubin 0.20 mg/dL (0.1-1.2) 07/04/19 07:05 AST 73 units/L (5-40) H 07/04/19 07:05 ALT 91 units/L (7-56) H 07/04/19 07:05 Alkaline Phosphatase 114 units/L (35-129) 07/04/19 07:05 Ammonia 35.0 umol/L (25-60) 07/03/19 23:58 Lactate Dehydrogenase 277 units/L (91-180) H 07/10/19 04:00 Troponin T 0.013 ng/mL (0.00-0.029) 07/04/19 07:05 C-Reactive Protein 15.10 mg/dL (0.00-1.30) H 07/10/19 04:00 Total Protein 5.5 g/dL (6.3-8.2) L 07/04/19 07:05 Albumin 2.0 g/dL (3.9-5) L 07/04/19 07:05 Albumin/Globulin Ratio 0.6 % 07/04/19 07:05 Triglycerides 33 mg/dL (2-149) 07/03/19 19:57 Cholesterol 47 mg/dL (50-199) L 07/03/19 19:57 LDL Cholesterol Direct 25 mg/dL (50-130) L 07/03/19 19:57 HDL Cholesterol 20 mg/dL (40-59) L 07/03/19 19:57 Cholesterol/HDL Ratio 2.35 % 07/03/19 19:57 Procalcitonin 0.17 ng/mL (<0.15) 07/26/19 04:48 TSH 2.170 mlU/mL (0.270-4.200) 07/03/19 22:20 Total Cortisol 28.0 mcg/dL () 07/05/19 10:11 Urine Color [place]aima (Yellow) 07/03/19 21:13 Urine Turbidity Cloudy (Clear) 07/03/19 21:13 Urine pH 5.0 (5.0-7.0) 07/03/19 21:13 Ur Specific [place] 1.016 (1.003-1.030) 07/03/19 21:13 Urine Protein 30 mg/dl mg/dL (Negative) 07/03/19 21:13 Urine Glucose (UA) Neg mg/dL (Negative) 07/03/19 21:13 Urine Ketones Neg mg/dL (Negative) 07/03/19 21:13 Urine Blood Neg (Negative) 07/03/19 21:13 Urine Nitrite Neg (Negative) 07/03/19 21:13 Urine Bilirubin Neg (Negative) 07/03/19 21:13 Urine Urobilinogen 2.0 mg/dL (<2.0) 07/03/19 21:13 Ur Leukocyte Esterase Neg (Negative) 07/03/19 21:13 Urine WBC (Auto) 12.0 /HPF (0.0-6.0) H 07/03/19 21:13 Urine RBC (Auto) 6.0 /HPF (0.0-6.0) 07/03/19 21:13 U Epithel Cells (Auto) 1.0 /HPF (0-13.0) 07/03/19 21:13 Urine Bacteria (Auto) 1+ /HPF (Negative) 07/03/19 21:13 Urine WBC Clumps Few /HPF 07/03/19 21:13 Urine Mucus Few /HPF 07/03/19 21:13 Urine Osmolality 293 Mosm/kg 07/05/19 08:15 Vancomycin Trough 23.2 ug/mL (5.0-20.0) H 07/05/19 17:54 Urine Opiates Screen Presumptive negative 07/03/19 21:13 Urine Methadone Screen Presumptive negative 07/03/19 21:13 Ur Barbiturates Screen Presumptive negative 07/03/19 21:13 Ur Phencyclidine Scrn Presumptive negative 07/03/19 21:13 Ur Amphetamines Screen Presumptive negative 07/03/19 21:13 U Benzodiazepines Scrn Presumptive negative 07/03/19 21:13 Urine Cocaine Screen Presumptive negative 07/03/19 21:13 U Marijuana (THC) Screen Presumptive negative 07/03/19 21:13 Drugs of Abuse Note Disclamer 07/03/19 21:13 Plasma/Serum Alcohol < 0.01 % (0-0.07) 07/03/19 23:58 Coronavirus (PCR) Positive (Negative) A 07/04/19 10:09 Blood Type B POSITIVE 07/12/19 08:49 Antibody Screen Negative 07/12/19 08:49 Crossmatch See Detail 07/12/19 08:49 Wright/IV: Voiding Method Indwelling Catheter IV Catheter Type [Left Upper Mid-line arm] IV Catheter Type [Right INT / Saline Lock Forearm] IV Catheter Type [Right Hand] INT / Saline Lock IV Catheter Type [Right CVL Femoral] IV Catheter Type [Left INT / Saline Lock External Jugular] Active Medications - Current Medications Current Medications: Generic Name Dose Route Start Last Admin Trade Name Freq PRN Reason Stop Dose Admin Acetaminophen 650 mg 07/04/19 04:24 Tylenol HI Q6H PRN Pain MILD(1-3)/Fever >100.5/MURO Acetaminophen 650 mg 07/10/19 04:00 07/15/19 20:35 Tylenol PO 650 mg Q6HR PRN Administration Pain, Mild (1-3) FEVER Lipase/Protease/Amylase 1 each 07/04/19 10:04 07/20/19 06:[address] 10,500 Unit FEEDTUBE 1 each PRN PRN Administration For Clogged Feeding Tube Aspirin 81 mg 07/05/19 10:00 07/26/19 09:34 Baby Aspirin PO 81 mg QDAY TAMMIE Administration Dextrose 50 ml 07/04/19 06:54 D50w (25gm) Syringe IV Q30MIN PRN Hypoglycemia Protocol Docusate Sodium 100 mg 07/10/19 10:00 07/27/19 00:22 Colace PO 100 mg BID TAMMIE Administration Enoxaparin Sodium 40 mg 07/24/19 10:00 07/26/19 09:33 Enoxaparin SUB-Q 40 mg QDAY@1000 TAMMIE Administration Famotidine 20 mg 07/23/19 22:00 07/27/19 00:23 Pepcid PO 20 mg BID TAMMIE Administration Fentanyl 50 mcg 07/21/19 15:18 Sublimaze IV Q10MIN PRN ANALGESIA Folic Acid 1 mg 07/05/19 10:00 07/26/19 09:33 Folvite PO 1 mg QDAY TAMMIE Administration Hydrophilic Ointment 1 applic 07/03/19 19:56 07/05/19 17:42 Vaseline Lip Therapy TP 1 applic Q2HR PRN Administration Dry Lips Norepinephrine 4 mg in 250 mls @ 7.5 mls/hr 07/03/19 23:00 07/20/19 01:00 Levophed Drip 4 Mg/Ns 250 Ml IV Infused TITR TAMMIE Titration Protocol 2 MCG/MIN Fentanyl Citrate 2,000 mcg in 100 mls @ 4.75 mls/hr 07/21/19 16:00 07/26/19 17:17 Fentanyl Drip Premix IV 1 mcg/kg/hr TITR TAMMIE 4.75 mls/hr Administration Protocol 1 MCG/KG/HR Insulin Human Lispro 0 unit 07/07/19 12:00 07/27/19 06:03 Humalog SUB-Q 2 unit Q6HR TAMMIE Administration Protocol Levetiracetam 750 mg 07/06/19 11:00 07/27/19 00:22 Keppra FEEDTUBE 750 mg Q12HR TAMMIE Administration Metoprolol Tartrate 5 mg 07/12/19 15:08 07/12/19 15:30 Metoprolol IV 5 mg Q6HR PRN Administration Tachyarrhythmias Multi-Ingred Cream/Lotion/Oil/Oint 1 applic 07/03/19 19:56 07/05/19 13:19 Artificial Tears Ophth Oint OU 1 applic Q4HR PRN Administration Dry Eye(s) Naloxone HCl 0.1 mg 07/04/19 04:24 Naloxone IV Q2MIN PRN Res Rate </= 8 or 02 SAT < 92% Oxycodone/Acetaminophen 1 tab 07/19/19 14:17 Percocet 5/325 PO Q4H PRN Pain, Moderate (4-6) Scopolamine 1 each 07/10/19 11:00 07/25/19 11:51 Transderm-Scop TD 1 each Q3D TAMMIE Administration Simple Syrup 15 ml 07/04/19 10:04 07/10/19 21:56 Simple Syrup FEEDTUBE 15 ml PRN PRN Administration Hypoglycemia Simple Syrup 30 ml 07/04/19 10:04 Simple Syrup FEEDTUBE PRN PRN Hypoglycemia Sodium Bicarbonate 325 mg 07/04/19 10:04 07/20/19 10:20 Sodium Bicarbonate FEEDTUBE 325 mg PRN PRN Administration For Clogged Feeding Tube Sodium Chloride 10 ml 07/04/19 10:00 07/26/19 09:35 Sodium Chloride Flush Syringe 10 Ml IV 10 ml BID TAMMIE Administration Sodium Chloride 10 ml 07/04/19 04:24 Sodium Chloride Flush Syringe 10 Ml IV PRN PRN LINE FLUSH Sodium Hypochlorite 1 applic 07/10/19 14:00 07/26/19 09:36 Dakin's Half Strength TP 1 applicatio BID TAMMIE Administration Nutrition/Malnutrition Assess - Dietary Evaluation Nutrition/Malnutrition Findings: Nutrition Notes Start: 07/04/19 09:17 Freq: Status: Active Protocol: Document 07/23/19 16:03 RAMANDEEP (Rec: 07/23/19 16:09 RAMANDEEP [email or web address] [email or web address]) Nutrition Notes Initial or Follow up Reassessment Current Diagnosis Acute Kidney Injury,COPD, Decubitus(Pressure Ulcer), Diabetes,Hypertension Other Pertinent Diagnosis COVID-19 (+), pneu, seizures, schizophrenia, Buttock and R foot PU, Current Diet TF - Nepro at 45ml/hr Labs/Tests Reviewed Pertinent Medications Reviewed Height 5 ft 11 in Weight 97.2 kg Wing Body Weight (kg) 78.18 BMI 29.9 Weight change and time frame Wt change noted Subjective/Other Information RD spoke with RN via phone at 15:27. Pt tolerating TF at goal rate. Pt remains on vent support. Percent of energy/protein needs met: 100% energy 87% pro Burn Absent Trauma Absent #2 Nutrition Diagnosis Increased nutrient needs ( specify in comment below) Diagnosis Progress(for reassessment Continues documentation) #1 Nutrition Diagnosis Inadequate oral intake Diagnosis Progress(for reassessment Continues documentation) Is patient on ventilator? Yes Is Patient Ambulatory and/or Out of Bed No REE-([place]-confined to bed) [phone] Additional Notes Use pro needs based on wt from previous assessment - current wt likely related to fluid retention Protein: 101-168g (1.2-2g/kg) Fluid: 1 ml/kcal or per MD Nutrition Intervention Nutrition Support: Nepro 1.8 at 45ml/hr Flush 200ml q4h Kcal 1,944 Protein (gm) 87 Fluid (mL) 785 Goal #1 TF tolerance Goal #2 TF to meet at least 75% of energy and protein needs Follow-Up By: 07/30/19 Additional Comments F/U: stable TF, vent status, wt
[2019-07-27] MEDS: ENOXAPARIN 40 MG/0.4 ML INJ SUB-Q SCH (10:12)
[2019-07-27] MEDS: ASPIRIN 81 MG TAB CHEW PO SCH (10:12)
[2019-07-27] MEDS: FOLIC ACID 1 MG TAB PO SCH (10:12)
[2019-07-27] MEDS: SODIUM HYPOCHLORITE, DAKIN'S 1/2 STRENGTH (0.25%) 473 ML TOPICAL SOLN TP SCH ×2 (10:15→22:00)
--- NOTE | 2019-07-27 14:01 | Progress Note ---
Assessment and Plan Cultures: 07/03/2019 urine culture: No growth 07/03/2019 Tracheal aspirate: E.coli A/P: 69-year-old male with CVA, hypertension, dementia, schizophrenia, alcohol use disorder was admitted to the emergency room after being brought in by EMS with progressive shortness of breath and unresponsiveness. He was noted to have agonal breathing and a faint pulse requiring CPR. It seems patient was on hospice recently. #Shock, likely septic: Lactic acidosis. Remains off pressors. #Severe COVID-19 disease and pneumonia: Elevated markers. Completed Plaquenil. Completed Ceftriaxone for treatment E.coli in tracheal aspirate. #Acute respiratory failure: on mechanical ventilation. #Transaminitis: Likely from COVID-19, shock #Leucocytosis: ?reactive from above. Recs: continue supportive care for COVID-19 agree with DNR. Poor prognosis. Procal minimally elevated, even in setting of ESRD. Continue supportive care. Mekhi Barboza MD [facility] ([facility]) M: [phone] O: [phone] F: [phone] Subjective Date of service: 07/27/19 Principal diagnosis: Bilateral pneumonia, severe sepsis with septic shock, encephalopathy Interval history: Afebrile, stable. Remains in the ICU. Objective - Exam Narrative Exam: Physical Exam (reviewed in chart due to PPE conservation) Constitutional: intubated, sedated, on the vent Head, Ears, Nose: normocephalic, atraumatic Eyes: limited due to PPE conservation strategy Neck: intubated Oral: intubated Cardiovascular: limited due to PPE conservation strategy Respiratory: limited due to PPE conservation strategy GI: limited due to PPE conservation strategy Musculoskeletal: limited due to PPE conservation strategy Skin: limited due to PPE conservation strategy Hem/Lymphatic: limited due to PPE conservation strategy Psych: no agitation Neurological: sedated, intubated, on the vent, exam limited - Constitutional Vitals: Vital Signs Temp Pulse Resp BP Pulse Ox 96.2 F L 106 H 17 141/66 97 07/27/19 12:00 07/27/19 12:01 07/27/19 12:01 07/27/19 12:01 07/27/19 12:01 Temperature -Last 24 Hours Temperature 96.2 F Temperature 97.5 F Temperature 97.8 F Temperature 96.5 F Temperature 96.5 F Temperature 98.2 F - Labs CBC & Chem 7: 07/25/19 05:14 07/25/19 05:14 Labs: Abnormal lab results 07/26/19 07/27/19 07/27/19 Range/Units 17:02 00:28 05:16 ABG pO2 63.4 L (80.0-90.0) mm Hg ABG HCO3 31.3 H (20.0-26.0) mmol/L ABG O2 Saturation 92.7 L (95.0-99.0) % ABG Base Excess 6.3 H (-2.0-3.0) mmol/L ABG Hemoglobin 7.6 L (14.0-18.0) gm/dl Oxyhemoglobin 90.9 L (95.0-99.0) % POC Glucose 116 H 158 H (70-105)
[2019-07-27] MEDS: fentaNYL DRIP Premix 2,000 MCG/100 ML BAG IV SCH (14:15)
--- NOTE | 2019-07-27 15:26 | Progress Note ---
Assessment and Plan Acute hypoxemic respiratory failure on MVS Severe sepsis with Shock. Bilateral Pneumonia. PUI coronavirus-19 infection. Acute possibly on chronic encephalopathy. Oropharyngeal dysphagia. Anemia. Decubitus ulcers Diabetes type 2. Hypertension. Leukocytosis. Anemia that is microcytic. Elevated serum transaminases. [id number] metabolic acidosis. Lactic acidosis. Severe protein-calorie malnutrition - surgery evaluation ongoing for tracheostomy placement - continue care as below otherwise - continue fentanyl gtt for pain control / sedation - continue to wean supplemental oxygen for target O2 sat's > 90% acutely - continue daily SAT's and SBT assessment as tolerated - VAP bundle addressed - continue lung protective strategies - continue bronchodilators with pulmonary hygiene per RT - wean per pulmonary driven protocols otherwise - prn Levophed for target MAP > 65 mmHg - continue airborne and contact COVID-19 precautions - COVID-19 test positive - complete anti-infectives and de-escalate per ID recommendations - continue wound care per WCT - sedation prn for target RASS 0 to -1 - accuchecks with glycemic control per SSI (While critically ill target blood glucose of 140-180 mg/dL; avoid hypoglycemia) - to avoid benzodiazepine's, reduce the possibility of delirium - prn analgesia per CPOT score - Maintenance of sleep-wake cycle, avoid delirium - continue enteral nutritional support at goal rate as tolerated - G.I. & VTE prophylaxis - PT/OT/ROM exercises - continue mobility protocols for pressure ulcer prophylaxis - Monitor hemodynamics closely - continue other care per attending / other consultants - discharge planning ongoing concurrently .... Re-evaluate in am & prn CONDITION: CRITICAL PROGNOSIS: GUARDED CODE STATUS: FULL CODE The high probability of a clinically significant, sudden or life-threatening deterioration of the [respiratory & cardiovascular] system(s) required my full and direct attention, intervention and personal management. The aggregate criti elias care time was [31] minutes without overlap. Time includes spent on; [x] Data Review and interpretation [x] Patient assessment and monitoring of vital signs [x] Documentation [x] Medication orders and management Subjective Date of service: 07/27/19 Principal diagnosis: Bilateral pneumonia, severe sepsis with septic shock, encephalopathy Interval history: Patient is seen today for: Ac hypoxemic Resp failure on MVS; Severe sepsis with Shock; Ivan. Pneumonia; PUI coronavirus-19 infection. Seen and examined at bedside; 24hour events reviewed; nursing and respiratory care staff consulted; no adverse overnight events reported to me; resting in bed; remains on MVS; AMS is persistent; remains a difficult wean; No N/V/F/C Objective Vital Signs - 12hr 07/27/19 07/27/19 07/27/19 03:28 03:30 04:00 Temperature 97.8 F Pulse Rate 100 H 101 H Pulse Rate [ From Monitor] Pulse Rate [ 102 H Right Dorsalis Pedis] Respiratory 17 16 Rate Blood Pressure 159/89 151/82 O2 Sat by Pulse 98 98 Oximetry 07/27/19 07/27/19 07/27/19 04:30 05:00 05:15 Temperature Pulse Rate 109 H 101 H 97 H Pulse Rate [ From Monitor] Pulse Rate [ Right Dorsalis Pedis] Respiratory 14 14 Rate Blood Pressure 157/90 170/83 147/79 O2 Sat by Pulse 97 95 97 Oximetry 07/27/19 07/27/19 07/27/19 05:31 06:01 06:31 Temperature Pulse Rate 102 H 100 H 101 H Pulse Rate [ From Monitor] Pulse Rate [ Right Dorsalis Pedis] Respiratory 13 20 17 Rate Blood Pressure 146/70 150/74 135/66 O2 Sat by Pulse 96 98 99 Oximetry 07/27/19 07/27/19 07/27/19 07:01 07:31 08:00 Temperature Pulse Rate 99 H 100 H 103 H Pulse Rate [ From Monitor] Pulse Rate [ 103 H Right Dorsalis Pedis] Respiratory 19 17 16 Rate Blood Pressure 140/70 143/73 143/73 O2 Sat by Pulse 98 97 97 Oximetry 07/27/19 07/27/19 07/27/19 08:16 08:31 09:01 Temperature 97.5 F L Pulse Rate 105 H 103 H Pulse Rate [ From Monitor] Pulse Rate [ Right Dorsalis Pedis] Respiratory 20 17 Rate Blood Pressure 132/73 132/73 O2 Sat by Pulse 97 97 Oximetry 07/27/19 07/27/19 07/27/19 09:31 10:01 10:31 Temperature Pulse Rate 114 H 108 H 108 H Pulse Rate [ From Monitor] Pulse Rate [ Right Dorsalis Pedis] Respiratory 12 19 17 Rate Blood Pressure 132/73 132/73 144/72 O2 Sat by Pulse 96 97 97 Oximetry 07/27/19 07/27/19 07/27/19 11:01 11:31 11:53 Temperature Pulse Rate 105 H 105 H 107 H Pulse Rate [ From Monitor] Pulse Rate [ Right Dorsalis Pedis] Respiratory 14 15 Rate Blood Pressure 140/70 132/73 132/73 O2 Sat by Pulse 97 97 97 Oximetry 07/27/19 07/27/19 12:00 12:01 Temperature 96.2 F L Pulse Rate 106 H 106 H Pulse Rate [ 106 H From Monitor] Pulse Rate [ 106 H Right Dorsalis Pedis] Respiratory 17 17 Rate Blood Pressure 141/66 O2 Sat by Pulse 97 97 Oximetry Constitutional: appears uncomfortable, other (eelderly and chronically ill looking AAM, normocep[krystina;ic with mildly increased respiratory effort at rest) Eyes: non-icteric ENT: oropharynx moist, other (ETT 24 cm Pawan) Neck: supple, no lymphadenopathy, no JVD Effort: very labored Ascultation: Bilateral: diminished breath sounds, rhonchi Percussion: Bilateral: not dull Cardiovascular: regular rate and rhythm Gastrointestinal: normoactive bowel sounds, soft, non-tender, non-distended, ot her (+ PEG tube with mild TF leakage) Integumentary: decubitus ulcer Extremities: no cyanosis, no edema, pink and warm, pulses normal Neurologic: unable to assess Psychiatric: other (Unable to assess re: AMS) CBC and BMP: 07/30/19 04:35 07/30/19 04:35 ABG, PT/INR, D-dimer: ABG ABG pH 7.430 pH Units (7.350-7.450) 07/27/19 05:16 ABG pCO2 48.2 mm Hg 07/27/19 05:16 ABG pO2 63.4 mm Hg (80.0-90.0) L 07/27/19 05:16 ABG O2 Saturation 92.7 % (95.0-99.0) L 07/27/19 05:16 PT/INR, D-dimer PT 16.0 Sec. (12.2-14.9) H 07/03/19 22:20 INR 1.26 (0.87-1.13) H 07/03/19 22:20 D-Dimer 1142.18 ng/mlDDU (0-234) H 07/08/19 00:45 Abnormal lab findings: Abnormal Labs 0407/03/19 07/03/19 19:57 21:10 21:13 WBC RBC Hgb Hct MCV MCH MCHC RDW Plt Count Lymph % (Auto) [place] % (Auto) Lymph # [place] # Baso # Seg Neutrophils % Seg Neuts % (Manual) Lymphocytes % (Manual) Monocytes % (Manual) Nucleated RBC % Seg Neutrophils # Seg Neutrophils # Man Lymphocytes # (Manual) Monocytes # (Manual) PT INR D-Dimer ABG pH 7.238 L ABG pO2 210.8 H ABG HCO3 15.4 L ABG O2 Saturation 99.2 H ABG Base Excess -11.1 L ABG Hemoglobin 8.0 L Oxyhemoglobin Sodium 124 L Potassium Chloride 92.9 L Carbon Dioxide 10 L BUN 23 H Creatinine 0.5 L Glucose 118 H POC Glucose Lactic Acid Calcium 7.0 L Magnesium Iron TIBC Ferritin AST 70 H ALT 88 H Lactate Dehydrogenase Troponin T 0.032 H C-Reactive Protein Total Protein 5.0 L Albumin 1.8 L Cholesterol 47 L LDL Cholesterol Direct 25 L HDL Cholesterol 20 L Urine WBC (Auto) 12.0 H Vancomycin Trough Coronavirus (PCR) Crossmatch 07/03/19 07/03/19 07/03/19 22:20 22:20 22:20 WBC 30.5 H RBC 2.96 L Hgb 7.7 L Hct 23.9 L MCV 81 L MCH 26 L MCHC RDW 18.6 H Plt Count 459 H Lymph % (Auto) [place] % (Auto) Lymph # [place] # Baso # Seg Neutrophils % Seg Neuts % (Manual) 93.0 H Lymphocytes % (Manual) 0.5 L Monocytes % (Manual) Nucleated RBC % Seg Neutrophils # Seg Neutrophils # Man 28.4 H Lymphocytes # (Manual) 0.2 L Monocytes # (Manual) PT 16.0 H INR 1.26 H D-Dimer ABG pH ABG pO2 ABG HCO3 ABG O2 Saturation ABG Base Excess ABG Hemoglobin Oxyhemoglobin Sodium Potassium Chloride Carbon Dioxide BUN Creatinine Glucose POC Glucose Lactic Acid 6.90 H* Calcium Magnesium Iron TIBC Ferritin AST ALT Lactate Dehydrogenase Troponin T C-Reactive Protein Total Protein Albumin Cholesterol LDL Cholesterol Direct HDL Cholesterol Urine WBC (Auto) Vancomycin Trough Coronavirus (PCR) Crossmatch 07/03/19 07/04/19 07/04/19 23:58 05:15 07:05 WBC 17.1 H RBC 3.22 L Hgb 8.3 L Hct 25.4 L MCV 79 L MCH 26 L MCHC RDW 18.6 H Plt Count Lymph % (Auto) [place] % (Auto) Lymph # [place] # Baso # Seg Neutrophils % Seg Neuts % (Manual) 74.0 H Lymphocytes % (Manual) 0 L Monocytes % (Manual) Nucleated RBC % Seg Neutrophils # Seg Neutrophils # Man 12.7 H Lymphocytes # (Manual) 0.0 L Monocytes # (Manual) PT INR D-Dimer ABG pH 7.310 L ABG pO2 73.2 L ABG HCO3 17.8 L ABG O2 Saturation 93.8 L ABG Base Excess -7.7 L ABG Hemoglobin 9.6 L Oxyhemoglobin 92.3 L Sodium Potassium Chloride Carbon Dioxide BUN Creatinine Glucose POC Glucose Lactic Acid 7.10 H* Calcium Magnesium Iron TIBC Ferritin AST ALT Lactate Dehydrogenase Troponin T C-Reactive Protein Total Protein Albumin Cholesterol LDL Cholesterol Direct HDL Cholesterol Urine WBC (Auto) Vancomycin Trough Coronavirus (PCR) Crossmatch 07/04/19 07/04/19 07/04/19 07:05 07:05 07:05 WBC RBC Hgb Hct MCV MCH MCHC RDW Plt Count Lymph % (Auto) [place] % (Auto) Lymph # [place] # Baso # Seg Neutrophils % Seg Neuts % (Manual) Lymphocytes % (Manual) Monocytes % (Manual) Nucleated RBC % Seg Neutrophils # Seg Neutrophils # Man Lymphocytes # (Manual) Monocytes # (Manual) PT INR D-Dimer ABG pH ABG pO2 ABG HCO3 ABG O2 Saturation ABG Base Excess ABG Hemoglobin Oxyhemoglobin Sodium 120 L Potassium 5.1 H Chloride 90.0 L Carbon Dioxide 14 L BUN 26 H Creatinine 0.5 L Glucose POC Glucose Lactic Acid 3.30 H* Calcium 8.0 L Magnesium Iron 9 L TIBC 97 L Ferritin AST 73 H ALT 91 H Lactate Dehydrogenase Troponin T C-Reactive Protein Total Protein 5.5 L Albumin 2.0 L Cholesterol LDL Cholesterol Direct HDL Cholesterol Urine WBC (Auto) Vancomycin Trough Coronavirus (PCR) Crossmatch 07/04/19 07/04/19 07/04/19 09:39 09:39 09:39 WBC RBC Hgb Hct MCV MCH MCHC RDW Plt Count Lymph % (Auto) [place] % (Auto) Lymph # [place] # Baso # Seg Neutrophils % Seg Neuts % (Manual) Lymphocytes % (Manual) Monocytes % (Manual) Nucleated RBC % Seg Neutrophils # Seg Neutrophils # Man Lymphocytes # (Manual) Monocytes # (Manual) PT INR D-Dimer 1419.14 H ABG pH ABG pO2 ABG HCO3 ABG O2 Saturation ABG Base Excess ABG Hemoglobin Oxyhemoglobin Sodium Potassium Chloride Carbon Dioxide BUN Creatinine Glucose POC Glucose Lactic Acid Calcium Magnesium Iron TIBC Ferritin 1719.0 H AST ALT Lactate Dehydrogenase 234 H Troponin T C-Reactive Protein 15.50 H Total Protein Albumin Cholesterol LDL Cholesterol Direct HDL Cholesterol Urine WBC (Auto) Vancomycin Trough Coronavirus (PCR) Crossmatch 07/04/19 07/04/19 07/04/19 10:09 18:08 18:28 WBC RBC Hgb Hct MCV MCH MCHC RDW Plt Count Lymph % (Auto) [place] % (Auto) Lymph # [place] # Baso # Seg Neutrophils % Seg Neuts % (Manual) Lymphocytes % (Manual) Monocytes % (Manual) Nucleated RBC % Seg Neutrophils # Seg Neutrophils # Man Lymphocytes # (Manual) Monocytes # (Manual) PT INR D-Dimer ABG pH ABG pO2 ABG HCO3 ABG O2 Saturation ABG Base Excess ABG Hemoglobin Oxyhemoglobin Sodium 117 L* Potassium 5.6 H Chloride 90.3 L Carbon Dioxide 16 L BUN 28 H Creatinine 0.5 L Glucose 58 L POC Glucose 65 L Lactic Acid Calcium 8.2 L Magnesium Iron TIBC Ferritin AST ALT Lactate Dehydrogenase Troponin T C-Reactive Protein Total Protein Albumin Cholesterol LDL Cholesterol Direct HDL Cholesterol Urine WBC (Auto) Vancomycin Trough Coronavirus (PCR) Positive A Crossmatch 07/04/19 07/04/19 07/04/19 23:45 Unknown Unknown WBC RBC Hgb Hct MCV MCH MCHC RDW Plt Count Lymph % (Auto) [place] % (Auto) Lymph # [place] # Baso # Seg Neutrophils % Seg Neuts % (Manual) Lymphocytes % (Manual) Monocytes % (Manual) Nucleated RBC % Seg Neutrophils # Seg Neutrophils # Man Lymphocytes # (Manual) Monocytes # (Manual) PT INR D-Dimer 759.77 H ABG pH ABG pO2 ABG HCO3 ABG O2 Saturation ABG Base Excess ABG Hemoglobin Oxyhemoglobin Sodium 122 L Potassium Chloride 93.0 L Carbon Dioxide 19 L BUN 27 H Creatinine 0.5 L Glucose POC Glucose Lactic Acid Calcium 8.3 L Magnesium Iron TIBC Ferritin 1301.0 H AST ALT Lactate Dehydrogenase Troponin T C-Reactive Protein Total Protein Albumin Cholesterol LDL Cholesterol Direct HDL Cholesterol Urine WBC (Auto) Vancomycin Trough Coronavirus (PCR) Crossmatch 07/04/19 07/05/19 07/05/19 Unknown 03:20 04:00 WBC RBC Hgb Hct MCV MCH MCHC RDW Plt Count Lymph % (Auto) [place] % (Auto) Lymph # [place] # Baso # Seg Neutrophils % Seg Neuts % (Manual) Lymphocytes % (Manual) Monocytes % (Manual) Nucleated RBC % Seg Neutrophils # Seg Neutrophils # Man Lymphocytes # (Manual) Monocytes # (Manual) PT INR D-Dimer ABG pH ABG pO2 60.6 L ABG HCO3 ABG O2 Saturation 93.5 L ABG Base Excess -2.4 L ABG Hemoglobin 6.9 L Oxyhemoglobin 92.0 L Sodium 125 L Potassium Chloride 92.6 L Carbon Dioxide 19 L BUN 24 H Creatinine 0.6 L Glucose POC Glucose Lactic Acid Calcium 8.2 L Magnesium 1.40 L Iron TIBC Ferritin AST ALT Lactate Dehydrogenase 242 H Troponin T C-Reactive Protein 16.70 H Total Protein Albumin Cholesterol LDL Cholesterol Direct HDL Cholesterol Urine WBC (Auto) Vancomycin Trough Coronavirus (PCR) Crossmatch 07/05/19 07/05/19 07/05/19 10:11 16:15 17:54 WBC 46.4 H* RBC 2.77 L Hgb 7.2 L Hct 21.9 L MCV 79 L MCH 26 L MCHC RDW 19.0 H Plt Count Lymph % (Auto) [place] % (Auto) Lymph # [place] # Baso # Seg Neutrophils % Seg Neuts % (Manual) 82.0 H Lymphocytes % (Manual) 1.0 L Monocytes % (Manual) Nucleated RBC % Seg Neutrophils # Seg Neutrophils # Man 38.0 H Lymphocytes # (Manual) 0.5 L Monocytes # (Manual) PT INR D-Dimer ABG pH ABG pO2 ABG HCO3 ABG O2 Saturation ABG Base Excess ABG Hemoglobin Oxyhemoglobin Sodium Potassium Chloride Carbon Dioxide BUN Creatinine Glucose POC Glucose 69 L Lactic Acid Calcium Magnesium Iron TIBC Ferritin AST ALT Lactate Dehydrogenase Troponin T C-Reactive Protein Total Protein Albumin Cholesterol LDL Cholesterol Direct HDL Cholesterol Urine WBC (Auto) Vancomycin Trough 23.2 H Coronavirus (PCR) Crossmatch 07/05/19 07/06/19 07/06/19 19:58 00:27 00:27 WBC RBC Hgb Hct MCV MCH MCHC RDW Plt Count Lymph % (Auto) [place] % (Auto) Lymph # [place] # Baso # Seg Neutrophils % Seg Neuts % (Manual) Lymphocytes % (Manual) Monocytes % (Manual) Nucleated RBC % Seg Neutrophils # Seg Neutrophils # Man Lymphocytes # (Manual) Monocytes # (Manual) PT INR D-Dimer 1333.22 H ABG pH ABG pO2 ABG HCO3 ABG O2 Saturation ABG Base Excess ABG Hemoglobin Oxyhemoglobin Sodium 127 L Potassium Chloride Carbon Dioxide BUN Creatinine Glucose POC Glucose Lactic Acid Calcium Magnesium Iron TIBC Ferritin 977.1 H AST ALT Lactate Dehydrogenase Troponin T C-Reactive Protein Total Protein Albumin Cholesterol LDL Cholesterol Direct HDL Cholesterol Urine WBC (Auto) Vancomycin Trough Coronavirus (PCR) Crossmatch 07/06/19 07/06/19 07/06/19 00:27 02:00 02:56 WBC RBC Hgb Hct MCV MCH MCHC RDW Plt Count Lymph % (Auto) [place] % (Auto) Lymph # [place] # Baso # Seg Neutrophils % Seg Neuts % (Manual) Lymphocytes % (Manual) Monocytes % (Manual) Nucleated RBC % Seg Neutrophils # Seg Neutrophils # Man Lymphocytes # (Manual) Monocytes # (Manual) PT INR D-Dimer ABG pH ABG pO2 70.3 L ABG HCO3 ABG O2 Saturation 94.8 L ABG Base Excess ABG Hemoglobin 8.0 L Oxyhemoglobin 93.2 L Sodium Potassium Chloride Carbon Dioxide BUN Creatinine Glucose POC Glucose 117 H Lactic Acid Calcium Magnesium Iron TIBC Ferritin AST ALT Lactate Dehydrogenase 236 H Troponin T C-Reactive Protein 22.90 H Total Protein Albumin Cholesterol LDL Cholesterol Direct HDL Cholesterol Urine WBC (Auto) Vancomycin Trough Coronavirus (PCR) Crossmatch 07/06/19 07/06/19 07/06/19 03:49 03:49 07:40 WBC 38.8 H RBC 2.51 L Hgb 6.7 L Hct 19.9 L* MCV 79 L MCH 27 L MCHC RDW 19.2 H Plt Count Lymph % (Auto) [place] % (Auto) Lymph # [place] # Baso # Seg Neutrophils % Seg Neuts % (Manual) 90.5 H Lymphocytes % (Manual) 1.0 L Monocytes % (Manual) Nucleated RBC % Seg Neutrophils # Seg Neutrophils # Man 35.1 H Lymphocytes # (Manual) 0.4 L Monocytes # (Manual) PT INR D-Dimer ABG pH ABG pO2 ABG HCO3 ABG O2 Saturation ABG Base Excess ABG Hemoglobin Oxyhemoglobin Sodium 131 L Potassium Chloride 96.9 L Carbon Dioxide 18 L BUN 23 H Creatinine 0.5 L Glucose POC Glucose Lactic Acid Calcium 8.0 L Magnesium Iron TIBC Ferritin AST ALT Lactate Dehydrogenase Troponin T C-Reactive Protein Total Protein Albumin Cholesterol LDL Cholesterol Direct HDL Cholesterol Urine WBC (Auto) Vancomycin Trough Coronavirus (PCR) Crossmatch See Detail 07/06/19 07/06/19 07/06/19 12:38 14:39 20:00 WBC RBC Hgb Hct MCV MCH MCHC RDW Plt Count Lymph % (Auto) [place] % (Auto) Lymph # [place] # Baso # Seg Neutrophils % Seg Neuts % (Manual) Lymphocytes % (Manual) Monocytes % (Manual) Nucleated RBC % Seg Neutrophils # Seg Neutrophils # Man Lymphocytes # (Manual) Monocytes # (Manual) PT INR D-Dimer ABG pH ABG pO2 ABG HCO3 ABG O2 Saturation ABG Base Excess ABG Hemoglobin Oxyhemoglobin Sodium Potassium Chloride Carbon Dioxide BUN Creatinine Glucose POC Glucose 112 H 111 H 140 H Lactic Acid Calcium Magnesium Iron TIBC Ferritin AST ALT Lactate Dehydrogenase Troponin T C-Reactive Protein Total Protein Albumin Cholesterol LDL Cholesterol Direct HDL Cholesterol Urine WBC (Auto) Vancomycin Trough Coronavirus (PCR) Crossmatch 07/06/19 07/06/19 07/07/19 22:43 22:56 02:20 WBC RBC Hgb 7.9 L Hct 23.1 L MCV MCH MCHC RDW Plt Count Lymph % (Auto) [place] % (Auto) Lymph # [place] # Baso # Seg Neutrophils % Seg Neuts % (Manual) Lymphocytes % (Manual) Monocytes % (Manual) Nucleated RBC % Seg Neutrophils # Seg Neutrophils # Man Lymphocytes # (Manual) Monocytes # (Manual) PT INR D-Dimer ABG pH ABG pO2 ABG HCO3 ABG O2 Saturation ABG Base Excess ABG Hemoglobin Oxyhemoglobin Sodium Potassium Chloride Carbon Dioxide BUN Creatinine Glucose POC Glucose 122 H 149 H Lactic Acid Calcium Magnesium Iron TIBC Ferritin AST ALT Lactate Dehydrogenase Troponin T C-Reactive Protein Total Protein Albumin Cholesterol LDL Cholesterol Direct HDL Cholesterol Urine WBC (Auto) Vancomycin Trough Coronavirus (PCR) Crossmatch 07/07/19 07/07/19 07/07/19 04:35 05:27 05:34 WBC 23.1 H RBC 3.00 L Hgb 8.1 L Hct 24.2 L MCV 81 L MCH 27 L MCHC RDW 20.6 H Plt Count Lymph % (Auto) [place] % (Auto) Lymph # [place] # Baso # Seg Neutrophils % Seg Neuts % (Manual) 90.0 H Lymphocytes % (Manual) 2.0 L Monocytes % (Manual) Nucleated RBC % Seg Neutrophils # Seg Neutrophils # Man 20.8 H Lymphocytes # (Manual) 0.5 L Monocytes # (Manual) PT INR D-Dimer ABG pH ABG pO2 65.8 L ABG HCO3 ABG O2 Saturation 92.2 L ABG Base Excess ABG Hemoglobin 8.3 L Oxyhemoglobin 90.6 L Sodium Potassium Chloride Carbon Dioxide BUN Creatinine Glucose POC Glucose 132 H Lactic Acid Calcium Magnesium Iron TIBC Ferritin AST ALT Lactate Dehydrogenase Troponin T C-Reactive Protein Total Protein Albumin Cholesterol LDL Cholesterol Direct HDL Cholesterol Urine WBC (Auto) Vancomycin Trough Coronavirus (PCR) Crossmatch 07/07/19 07/07/19 07/07/19 05:34 11:50 15:58 WBC RBC Hgb 8.1 L Hct 24.2 L MCV MCH MCHC RDW Plt Count Lymph % (Auto) [place] % (Auto) Lymph # [place] # Baso # Seg Neutrophils % Seg Neuts % (Manual) Lymphocytes % (Manual) Monocytes % (Manual) Nucleated RBC % Seg Neutrophils # Seg Neutrophils # Man Lymphocytes # (Manual) Monocytes # (Manual) PT INR D-Dimer ABG pH ABG pO2 ABG HCO3 ABG O2 Saturation ABG Base Excess ABG Hemoglobin Oxyhemoglobin Sodium 135 L Potassium 3.3 L Chloride Carbon Dioxide 20 L BUN 27 H Creatinine 0.6 L Glucose 121 H POC Glucose 123 H Lactic Acid Calcium 8.0 L Magnesium Iron TIBC Ferritin AST ALT Lactate Dehydrogenase Troponin T C-Reactive Protein Total Protein Albumin Cholesterol LDL Cholesterol Direct HDL Cholesterol Urine WBC (Auto) Vancomycin Trough Coronavirus (PCR) Crossmatch 07/07/19 07/07/19 07/07/19 17:42 22:00 23:53 WBC RBC Hgb 8.0 L Hct 23.4 L MCV MCH MCHC RDW Plt Count Lymph % (Auto) [place] % (Auto) Lymph # [place] # Baso # Seg Neutrophils % Seg Neuts % (Manual) Lymphocytes % (Manual) Monocytes % (Manual) Nucleated RBC % Seg Neutrophils # Seg Neutrophils # Man Lymphocytes # (Manual) Monocytes # (Manual) PT INR D-Dimer ABG pH ABG pO2 ABG HCO3 ABG O2 Saturation ABG Base Excess ABG Hemoglobin Oxyhemoglobin Sodium Potassium Chloride Carbon Dioxide BUN Creatinine Glucose POC Glucose 107 H 117 H Lactic Acid Calcium Magnesium Iron TIBC Ferritin AST ALT Lactate Dehydrogenase Troponin T C-Reactive Protein Total Protein Albumin Cholesterol LDL Cholesterol Direct HDL Cholesterol Urine WBC (Auto) Vancomycin Trough Coronavirus (PCR) Crossmatch 07/08/19 07/08/19 07/08/19 00:45 00:45 00:45 WBC RBC Hgb Hct MCV MCH MCHC RDW Plt Count Lymph % (Auto) [place] % (Auto) Lymph # [place] # Baso # Seg Neutrophils % Seg Neuts % (Manual) Lymphocytes % (Manual) Monocytes % (Manual) Nucleated RBC % Seg Neutrophils # Seg Neutrophils # Man Lymphocytes # (Manual) Monocytes # (Manual) PT INR D-Dimer 1142.18 H ABG pH ABG pO2 ABG HCO3 ABG O2 Saturation ABG Base Excess ABG Hemoglobin Oxyhemoglobin Sodium Potassium Chloride Carbon Dioxide BUN Creatinine Glucose POC Glucose Lactic Acid Calcium Magnesium Iron TIBC Ferritin 839.0 H AST ALT Lactate Dehydrogenase 253 H Troponin T C-Reactive Protein 18.90 H Total Protein Albumin Cholesterol LDL Cholesterol Direct HDL Cholesterol Urine WBC (Auto) Vancomycin Trough Coronavirus (PCR) Crossmatch 07/08/19 07/08/19 07/08/19 04:30 05:11 12:02 WBC RBC Hgb Hct MCV MCH MCHC RDW Plt Count Lymph % (Auto) [place] % (Auto) Lymph # [place] # Baso # Seg Neutrophils % Seg Neuts % (Manual) Lymphocytes % (Manual) Monocytes % (Manual) Nucleated RBC % Seg Neutrophils # Seg Neutrophils # Man Lymphocytes # (Manual) Monocytes # (Manual) PT INR D-Dimer ABG pH ABG pO2 66.0 L ABG HCO3 ABG O2 Saturation 92.3 L ABG Base Excess ABG Hemoglobin 7.7 L Oxyhemoglobin 90.7 L Sodium Potassium Chloride Carbon Dioxide BUN Creatinine Glucose POC Glucose 108 H 153 H Lactic Acid Calcium Magnesium Iron TIBC Ferritin AST ALT Lactate Dehydrogenase Troponin T C-Reactive Protein Total Protein Albumin Cholesterol LDL Cholesterol Direct HDL Cholesterol Urine WBC (Auto) Vancomycin Trough Coronavirus (PCR) Crossmatch 07/08/19 07/08/19 07/08/19 16:15 18:22 23:35 WBC RBC Hgb Hct MCV MCH MCHC RDW Plt Count Lymph % (Auto) [place] % (Auto) Lymph # [place] # Baso # Seg Neutrophils % Seg Neuts % (Manual) Lymphocytes % (Manual) Monocytes % (Manual) Nucleated RBC % Seg Neutrophils # Seg Neutrophils # Man Lymphocytes # (Manual) Monocytes # (Manual) PT INR D-Dimer ABG pH ABG pO2 ABG HCO3 ABG O2 Saturation ABG Base Excess ABG Hemoglobin Oxyhemoglobin Sodium 134 L Potassium 3.3 L Chloride Carbon Dioxide 21 L BUN 27 H Creatinine 0.6 L Glucose 146 H POC Glucose 134 H 133 H Lactic Acid Calcium Magnesium Iron TIBC Ferritin AST ALT Lactate Dehydrogenase Troponin T C-Reactive Protein Total Protein Albumin Cholesterol LDL Cholesterol Direct HDL Cholesterol Urine WBC (Auto) Vancomycin Trough Coronavirus (PCR) Crossmatch 07/09/19 07/09/19 07/09/19 04:30 04:30 05:00 WBC 18.9 H RBC 2.77 L Hgb 7.4 L Hct 22.8 L MCV 82 L MCH 27 L MCHC RDW 20.9 H Plt Count 130 L Lymph % (Auto) [place] % (Auto) Lymph # [place] # Baso # Seg Neutrophils % Seg Neuts % (Manual) 84.0 H Lymphocytes % (Manual) 0 L Monocytes % (Manual) Nucleated RBC % Seg Neutrophils # Seg Neutrophils # Man 15.9 H Lymphocytes # (Manual) 0.0 L Monocytes # (Manual) PT INR D-Dimer ABG pH ABG pO2 ABG HCO3 ABG O2 Saturation ABG Base Excess ABG Hemoglobin Oxyhemoglobin Sodium Potassium 3.1 L Chloride Carbon Dioxide BUN 26 H Creatinine 0.5 L Glucose 125 H POC Glucose 155 H Lactic Acid Calcium Magnesium Iron TIBC Ferritin AST ALT Lactate Dehydrogenase Troponin T C-Reactive Protein Total Protein Albumin Cholesterol LDL Cholesterol Direct HDL Cholesterol Urine WBC (Auto) Vancomycin Trough Coronavirus (PCR) Crossmatch 07/09/19 07/09/19 07/09/19 05:55 12:22 17:50 WBC RBC Hgb Hct MCV MCH MCHC RDW Plt Count Lymph % (Auto) [place] % (Auto) Lymph # [place] # Baso # Seg Neutrophils % Seg Neuts % (Manual) Lymphocytes % (Manual) Monocytes % (Manual) Nucleated RBC % Seg Neutrophils # Seg Neutrophils # Man Lymphocytes # (Manual) Monocytes # (Manual) PT INR D-Dimer ABG pH ABG pO2 62.8 L ABG HCO3 ABG O2 Saturation ABG Base Excess ABG Hemoglobin 6.1 L Oxyhemoglobin 93.9 L Sodium Potassium Chloride Carbon Dioxide BUN Creatinine Glucose POC Glucose 115 H 133 H Lactic Acid Calcium Magnesium Iron TIBC Ferritin AST ALT Lactate Dehydrogenase Troponin T C-Reactive Protein Total Protein Albumin Cholesterol LDL Cholesterol Direct HDL Cholesterol Urine WBC (Auto) Vancomycin Trough Coronavirus (PCR) Crossmatch 07/10/19 07/10/19 07/10/19 00:38 04:00 04:00 WBC RBC Hgb Hct MCV MCH MCHC RDW Plt Count Lymph % (Auto) [place] % (Auto) Lymph # [place] # Baso # Seg Neutrophils % Seg Neuts % (Manual) Lymphocytes % (Manual) Monocytes % (Manual) Nucleated RBC % Seg Neutrophils # Seg Neutrophils # Man Lymphocytes # (Manual) Monocytes # (Manual) PT INR D-Dimer ABG pH ABG pO2 ABG HCO3 ABG O2 Saturation ABG Base Excess ABG Hemoglobin Oxyhemoglobin Sodium Potassium Chloride 107.9 H Carbon Dioxide BUN 26 H Creatinine 0.4 L Glucose 137 H POC Glucose 122 H Lactic Acid Calcium Magnesium 1.50 L Iron TIBC Ferritin AST ALT Lactate Dehydrogenase 277 H Troponin T C-Reactive Protein 15.10 H Total Protein Albumin Cholesterol LDL Cholesterol Direct HDL Cholesterol Urine WBC (Auto) Vancomycin Trough Coronavirus (PCR) Crossmatch 07/10/19 07/10/19 07/10/19 04:07 05:21 17:25 WBC RBC Hgb Hct MCV MCH MCHC RDW Plt Count Lymph % (Auto) [place] % (Auto) Lymph # [place] # Baso # Seg Neutrophils % Seg Neuts % (Manual) Lymphocytes % (Manual) Monocytes % (Manual) Nucleated RBC % Seg Neutrophils # Seg Neutrophils # Man Lymphocytes # (Manual) Monocytes # (Manual) PT INR D-Dimer ABG pH ABG pO2 65.6 L ABG HCO3 26.3 H ABG O2 Saturation ABG Base Excess ABG Hemoglobin 6.7 L Oxyhemoglobin Sodium Potassium Chloride Carbon Dioxide BUN Creatinine Glucose POC Glucose 144 H 113 H Lactic Acid Calcium Magnesium Iron TIBC Ferritin AST ALT Lactate Dehydrogenase Troponin T C-Reactive Protein Total Protein Albumin Cholesterol LDL Cholesterol Direct HDL Cholesterol Urine WBC (Auto) Vancomycin Trough Coronavirus (PCR) Crossmatch 07/11/19 07/11/19 07/11/19 00:07 05:14 05:25 WBC RBC Hgb Hct MCV MCH MCHC RDW Plt Count Lymph % (Auto) [place] % (Auto) Lymph # [place] # Baso # Seg Neutrophils % Seg Neuts % (Manual) Lymphocytes % (Manual) Monocytes % (Manual) Nucleated RBC % Seg Neutrophils # Seg Neutrophils # Man Lymphocytes # (Manual) Monocytes # (Manual) PT INR D-Dimer ABG pH ABG pO2 ABG HCO3 ABG O2 Saturation ABG Base Excess ABG Hemoglobin 5.8 L Oxyhemoglobin Sodium Potassium Chloride 108.0 H Carbon Dioxide BUN 26 H Creatinine 0.4 L Glucose 110 H POC Glucose 121 H Lactic Acid Calcium Magnesium Iron TIBC Ferritin AST ALT Lactate Dehydrogenase Troponin T C-Reactive Protein Total Protein Albumin Cholesterol LDL Cholesterol Direct HDL Cholesterol Urine WBC (Auto) Vancomycin Trough Coronavirus (PCR) Crossmatch 07/11/19 07/11/19 07/11/19 12:27 18:00 23:42 WBC RBC Hgb Hct MCV MCH MCHC RDW Plt Count Lymph % (Auto) [place] % (Auto) Lymph # [place] # Baso # Seg Neutrophils % Seg Neuts % (Manual) Lymphocytes % (Manual) Monocytes % (Manual) Nucleated RBC % Seg Neutrophils # Seg Neutrophils # Man Lymphocytes # (Manual) Monocytes # (Manual) PT INR D-Dimer ABG pH ABG pO2 ABG HCO3 ABG O2 Saturation ABG Base Excess ABG Hemoglobin Oxyhemoglobin Sodium Potassium Chloride Carbon Dioxide BUN Creatinine Glucose POC Glucose 158 H 141 H 142 H Lactic Acid Calcium Magnesium Iron TIBC Ferritin AST ALT Lactate Dehydrogenase Troponin T C-Reactive Protein Total Protein Albumin Cholesterol LDL Cholesterol Direct HDL Cholesterol Urine WBC (Auto) Vancomycin Trough Coronavirus (PCR) Crossmatch 07/12/19 07/12/19 07/12/19 04:46 04:46 05:23 WBC 23.6 H RBC 2.51 L Hgb 6.7 L Hct 20.8 L MCV 83 L MCH 27 L MCHC RDW 20.3 H Plt Count Lymph % (Auto) [place] % (Auto) Lymph # [place] # Baso # Seg Neutrophils % Seg Neuts % (Manual) 94.0 H Lymphocytes % (Manual) 4.0 L Monocytes % (Manual) Nucleated RBC % Seg Neutrophils # Seg Neutrophils # Man 22.2 H Lymphocytes # (Manual) 0.9 L Monocytes # (Manual) PT INR D-Dimer ABG pH ABG pO2 ABG HCO3 ABG O2 Saturation ABG Base Excess ABG Hemoglobin Oxyhemoglobin Sodium Potassium Chloride 107.1 H Carbon Dioxide BUN 25 H Creatinine 0.4 L Glucose 122 H POC Glucose 118 H Lactic Acid Calcium Magnesium Iron TIBC Ferritin AST ALT Lactate Dehydrogenase Troponin T C-Reactive Protein Total Protein Albumin Cholesterol LDL Cholesterol Direct HDL Cholesterol Urine WBC (Auto) Vancomycin Trough Coronavirus (PCR) Crossmatch 07/12/19 07/12/19 07/12/19 08:49 11:36 18:15 WBC RBC Hgb Hct MCV MCH MCHC RDW Plt Count Lymph % (Auto) [place] % (Auto) Lymph # [place] # Baso # Seg Neutrophils % Seg Neuts % (Manual) Lymphocytes % (Manual) Monocytes % (Manual) Nucleated RBC % Seg Neutrophils # Seg Neutrophils # Man Lymphocytes # (Manual) Monocytes # (Manual) PT INR D-Dimer ABG pH ABG pO2 ABG HCO3 ABG O2 Saturation ABG Base Excess ABG Hemoglobin Oxyhemoglobin Sodium Potassium Chloride Carbon Dioxide BUN Creatinine Glucose POC Glucose 124 H 110 H Lactic Acid Calcium Magnesium Iron TIBC Ferritin AST ALT Lactate Dehydrogenase Troponin T C-Reactive Protein Total Protein Albumin Cholesterol LDL Cholesterol Direct HDL Cholesterol Urine WBC (Auto) Vancomycin Trough Coronavirus (PCR) Crossmatch See Detail 07/12/19 07/13/19 07/13/19 23:16 05:26 06:50 WBC 23.9 H RBC 2.58 L Hgb 6.9 L Hct 21.5 L MCV 83 L MCH 27 L MCHC RDW 19.0 H Plt Count Lymph % (Auto) [place] % (Auto) Lymph # [place] # Baso # Seg Neutrophils % Seg Neuts % (Manual) 96.0 H Lymphocytes % (Manual) 3.0 L Monocytes % (Manual) Nucleated RBC % Seg Neutrophils # Seg Neutrophils # Man 22.9 H Lymphocytes # (Manual) 0.7 L Monocytes # (Manual) PT INR D-Dimer ABG pH ABG pO2 ABG HCO3 ABG O2 Saturation ABG Base Excess ABG Hemoglobin Oxyhemoglobin Sodium Potassium Chloride Carbon Dioxide BUN Creatinine Glucose POC Glucose 108 H 126 H Lactic Acid Calcium Magnesium Iron TIBC Ferritin AST ALT Lactate Dehydrogenase Troponin T C-Reactive Protein Total Protein Albumin Cholesterol LDL Cholesterol Direct HDL Cholesterol Urine WBC (Auto) Vancomycin Trough Coronavirus (PCR) Crossmatch 07/13/19 07/13/19 07/13/19 06:50 12:38 18:05 WBC RBC Hgb Hct MCV MCH MCHC RDW Plt Count Lymph % (Auto) [place] % (Auto) Lymph # [place] # Baso # Seg Neutrophils % Seg Neuts % (Manual) Lymphocytes % (Manual) Monocytes % (Manual) Nucleated RBC % Seg Neutrophils # Seg Neutrophils # Man Lymphocytes # (Manual) Monocytes # (Manual) PT INR D-Dimer ABG pH ABG pO2 ABG HCO3 ABG O2 Saturation ABG Base Excess ABG Hemoglobin Oxyhemoglobin Sodium Potassium Chloride Carbon Dioxide BUN 33 H Creatinine 0.5 L Glucose 136 H POC Glucose 164 H 145 H Lactic Acid Calcium Magnesium Iron TIBC Ferritin AST ALT Lactate Dehydrogenase Troponin T C-Reactive Protein Total Protein Albumin Cholesterol LDL Cholesterol Direct HDL Cholesterol Urine WBC (Auto) Vancomycin Trough Coronavirus (PCR) Crossmatch 07/13/19 07/14/19 07/14/19 18:30 00:21 04:40 WBC 22.9 H RBC 2.45 L Hgb 6.6 L Hct 21.1 L MCV MCH 27 L MCHC 31 L RDW 19.2 H Plt Count Lymph % (Auto) [place] % (Auto) Lymph # [place] # Baso # Seg Neutrophils % Seg Neuts % (Manual) 91.0 H Lymphocytes % (Manual) 7.0 L Monocytes % (Manual) Nucleated RBC % Seg Neutrophils # Seg Neutrophils # Man 20.8 H Lymphocytes # (Manual) Monocytes # (Manual) PT INR D-Dimer ABG pH ABG pO2 58.1 L ABG HCO3 ABG O2 Saturation 88.7 L ABG Base Excess ABG Hemoglobin 7.8 L Oxyhemoglobin 86.8 L Sodium Potassium Chloride Carbon Dioxide BUN Creatinine Glucose POC Glucose 118 H Lactic Acid Calcium Magnesium Iron TIBC Ferritin AST ALT Lactate Dehydrogenase Troponin T C-Reactive Protein Total Protein Albumin Cholesterol LDL Cholesterol Direct HDL Cholesterol Urine WBC (Auto) Vancomycin Trough Coronavirus (PCR) Crossmatch 07/14/19 07/14/19 07/14/19 04:40 05:38 05:45 WBC RBC Hgb Hct MCV MCH MCHC RDW Plt Count Lymph % (Auto) [place] % (Auto) Lymph # [place] # Baso # Seg Neutrophils % Seg Neuts % (Manual) Lymphocytes % (Manual) Monocytes % (Manual) Nucleated RBC % Seg Neutrophils # Seg Neutrophils # Man Lymphocytes # (Manual) Monocytes # (Manual) PT INR D-Dimer ABG pH 7.230 L ABG pO2 72.1 L ABG HCO3 ABG O2 Saturation 89.3 L ABG Base Excess -2.7 L ABG Hemoglobin 6.7 L Oxyhemoglobin 87.7 L Sodium Potassium Chloride 107.4 H Carbon Dioxide BUN 45 H Creatinine Glucose 101 H POC Glucose 154 H Lactic Acid Calcium Magnesium Iron TIBC Ferritin AST ALT Lactate Dehydrogenase Troponin T C-Reactive Protein Total Protein Albumin Cholesterol LDL Cholesterol Direct HDL Cholesterol Urine WBC (Auto) Vancomycin Trough Coronavirus (PCR) Crossmatch 07/14/19 07/14/19 07/14/19 12:25 18:20 19:01 WBC 22.4 H RBC 2.70 L Hgb 7.5 L Hct 23.3 L MCV MCH MCHC RDW 19.5 H Plt Count Lymph % (Auto) [place] % (Auto) Lymph # [place] # Baso # Seg Neutrophils % Seg Neuts % (Manual) Lymphocytes % (Manual) Monocytes % (Manual) Nucleated RBC % Seg Neutrophils # Seg Neutrophils # Man Lymphocytes # (Manual) Monocytes # (Manual) PT INR D-Dimer ABG pH ABG pO2 ABG HCO3 ABG O2 Saturation ABG Base Excess ABG Hemoglobin Oxyhemoglobin Sodium Potassium Chloride Carbon Dioxide BUN Creatinine Glucose POC Glucose 136 H 131 H Lactic Acid Calcium Magnesium Iron TIBC Ferritin AST ALT Lactate Dehydrogenase Troponin T C-Reactive Protein Total Protein Albumin Cholesterol LDL Cholesterol Direct HDL Cholesterol Urine WBC (Auto) Vancomycin Trough Coronavirus (PCR) Crossmatch 07/15/19 07/15/19 07/15/19 00:17 04:35 05:18 WBC 20.6 H RBC 2.41 L Hgb 6.8 L Hct 20.7 L MCV MCH MCHC RDW 20.2 H Plt Count Lymph % (Auto) [place] % (Auto) Lymph # [place] # Baso # Seg Neutrophils % Seg Neuts % (Manual) 92.0 H Lymphocytes % (Manual) 5.0 L Monocytes % (Manual) Nucleated RBC % Seg Neutrophils # Seg Neutrophils # Man 19.0 H Lymphocytes # (Manual) 1.0 L Monocytes # (Manual) PT INR D-Dimer ABG pH 7.342 L ABG pO2 ABG HCO3 ABG O2 Saturation ABG Base Excess -3.1 L ABG Hemoglobin 7.2 L Oxyhemoglobin 94.9 L Sodium Potassium Chloride Carbon Dioxide BUN Creatinine Glucose POC Glucose 116 H Lactic Acid Calcium Magnesium Iron TIBC Ferritin AST ALT Lactate Dehydrogenase Troponin T C-Reactive Protein Total Protein Albumin Cholesterol LDL Cholesterol Direct HDL Cholesterol Urine WBC (Auto) Vancomycin Trough Coronavirus (PCR) Crossmatch 07/15/19 07/15/19 07/15/19 05:18 05:57 11:28 WBC RBC Hgb Hct MCV MCH MCHC RDW Plt Count Lymph % (Auto) [place] % (Auto) Lymph # [place] # Baso # Seg Neutrophils % Seg Neuts % (Manual) Lymphocytes % (Manual) Monocytes % (Manual) Nucleated RBC % Seg Neutrophils # Seg Neutrophils # Man Lymphocytes # (Manual) Monocytes # (Manual) PT INR D-Dimer ABG pH ABG pO2 ABG HCO3 ABG O2 Saturation ABG Base Excess ABG Hemoglobin Oxyhemoglobin Sodium Potassium Chloride Carbon Dioxide 20 L BUN 59 H Creatinine Glucose 140 H POC Glucose 139 H 117 H Lactic Acid Calcium Magnesium Iron TIBC Ferritin AST ALT Lactate Dehydrogenase Troponin T C-Reactive Protein Total Protein Albumin Cholesterol LDL Cholesterol Direct HDL Cholesterol Urine WBC (Auto) Vancomycin Trough Coronavirus (PCR) Crossmatch 07/15/19 07/16/19 07/16/19 18:13 00:06 03:43 WBC RBC Hgb Hct MCV MCH MCHC RDW Plt Count Lymph % (Auto) [place] % (Auto) Lymph # [place] # Baso # Seg Neutrophils % Seg Neuts % (Manual) Lymphocytes % (Manual) Monocytes % (Manual) Nucleated RBC % Seg Neutrophils # Seg Neutrophils # Man Lymphocytes # (Manual) Monocytes # (Manual) PT INR D-Dimer ABG pH 7.344 L ABG pO2 68.6 L ABG HCO3 ABG O2 Saturation ABG Base Excess -3.5 L ABG Hemoglobin 6.1 L Oxyhemoglobin 93.3 L Sodium Potassium Chloride Carbon Dioxide BUN Creatinine Glucose POC Glucose 114 H 119 H Lactic Acid Calcium Magnesium Iron TIBC Ferritin AST ALT Lactate Dehydrogenase Troponin T C-Reactive Protein Total Protein Albumin Cholesterol LDL Cholesterol Direct HDL Cholesterol Urine WBC (Auto) Vancomycin Trough Coronavirus (PCR) Crossmatch 07/16/19 07/16/19 07/16/19 04:41 04:41 12:09 WBC 19.6 H RBC 2.81 L Hgb 7.7 L Hct 24.0 L MCV MCH 27 L MCHC RDW 19.4 H Plt Count 514 H Lymph % (Auto) 6.7 L [place] % (Auto) Lymph # [place] # 1.0 H Baso # Seg Neutrophils % 87.0 H Seg Neuts % (Manual) Lymphocytes % (Manual) Monocytes % (Manual) Nucleated RBC % Seg Neutrophils # 17.0 H Seg Neutrophils # Man Lymphocytes # (Manual) Monocytes # (Manual) PT INR D-Dimer ABG pH ABG pO2 ABG HCO3 ABG O2 Saturation ABG Base Excess ABG Hemoglobin Oxyhemoglobin Sodium Potassium 5.9 H Chloride Carbon Dioxide 21 L BUN 73 H Creatinine 2.0 H Glucose POC Glucose 141 H Lactic Acid Calcium Magnesium Iron TIBC Ferritin AST ALT Lactate Dehydrogenase Troponin T C-Reactive Protein Total Protein Albumin Cholesterol LDL Cholesterol Direct HDL Cholesterol Urine WBC (Auto) Vancomycin Trough Coronavirus (PCR) Crossmatch 07/16/19 07/16/19 07/17/19 16:19 17:45 00:16 WBC RBC Hgb Hct MCV MCH MCHC RDW Plt Count Lymph % (Auto) [place] % (Auto) Lymph # [place] # Baso # Seg Neutrophils % Seg Neuts % (Manual) Lymphocytes % (Manual) Monocytes % (Manual) Nucleated RBC % Seg Neutrophils # Seg Neutrophils # Man Lymphocytes # (Manual) Monocytes # (Manual) PT INR D-Dimer ABG pH ABG pO2 ABG HCO3 ABG O2 Saturation ABG Base Excess ABG Hemoglobin Oxyhemoglobin Sodium Potassium 5.1 H Chloride Carbon Dioxide 20 L BUN 72 H Creatinine 1.7 H Glucose 128 H POC Glucose 181 H 164 H Lactic Acid Calcium Magnesium Iron TIBC Ferritin AST ALT Lactate Dehydrogenase Troponin T C-Reactive Protein Total Protein Albumin Cholesterol LDL Cholesterol Direct HDL Cholesterol Urine WBC (Auto) Vancomycin Trough Coronavirus (PCR) Crossmatch 07/17/19 07/17/19 07/17/19 04:20 04:39 04:39 WBC 16.1 H RBC 2.92 L Hgb 8.0 L Hct 25.5 L MCV MCH MCHC 31 L RDW 19.7 H Plt Count 564 H Lymph % (Auto) 3.6 L [place] % (Auto) 7.4 H Lymph # 0.6 L [place] # 1.2 H Baso # Seg Neutrophils % 87.5 H Seg Neuts % (Manual) Lymphocytes % (Manual) Monocytes % (Manual) Nucleated RBC % Seg Neutrophils # 14.1 H Seg Neutrophils # Man Lymphocytes # (Manual) Monocytes # (Manual) PT INR D-Dimer ABG pH 7.231 L ABG pO2 95.3 H ABG HCO3 ABG O2 Saturation ABG Base Excess -5.0 L ABG Hemoglobin 7.9 L Oxyhemoglobin 94.8 L Sodium Potassium Chloride 107.8 H Carbon Dioxide 21 L BUN 68 H Creatinine Glucose POC Glucose Lactic Acid Calcium Magnesium Iron TIBC Ferritin AST ALT Lactate Dehydrogenase Troponin T C-Reactive Protein Total Protein Albumin Cholesterol LDL Cholesterol Direct HDL Cholesterol Urine WBC (Auto) Vancomycin Trough Coronavirus (PCR) Crossmatch 07/17/19 07/17/19 07/17/19 05:28 12:11 18:48 WBC RBC Hgb Hct MCV MCH MCHC RDW Plt Count Lymph % (Auto) [place] % (Auto) Lymph # [place] # Baso # Seg Neutrophils % Seg Neuts % (Manual) Lymphocytes % (Manual) Monocytes % (Manual) Nucleated RBC % Seg Neutrophils # Seg Neutrophils # Man Lymphocytes # (Manual) Monocytes # (Manual) PT INR D-Dimer ABG pH ABG pO2 ABG HCO3 ABG O2 Saturation ABG Base Excess ABG Hemoglobin Oxyhemoglobin Sodium Potassium Chloride Carbon Dioxide BUN Creatinine Glucose POC Glucose 121 H 125 H 174 H Lactic Acid Calcium Magnesium Iron TIBC Ferritin AST ALT Lactate Dehydrogenase Troponin T C-Reactive Protein Total Protein Albumin Cholesterol LDL Cholesterol Direct HDL Cholesterol Urine WBC (Auto) Vancomycin Trough Coronavirus (PCR) Crossmatch 07/17/19 07/17/19 07/18/19 19:55 23:57 02:30 WBC RBC Hgb Hct MCV MCH MCHC RDW Plt Count Lymph % (Auto) [place] % (Auto) Lymph # [place] # Baso # Seg Neutrophils % Seg Neuts % (Manual) Lymphocytes % (Manual) Monocytes % (Manual) Nucleated RBC % Seg Neutrophils # Seg Neutrophils # Man Lymphocytes # (Manual) Monocytes # (Manual) PT INR D-Dimer ABG pH 7.344 L 7.294 L ABG pO2 78.5 L 119.2 H ABG HCO3 ABG O2 Saturation ABG Base Excess -3.3 L -2.6 L ABG Hemoglobin 8.6 L 8.1 L Oxyhemoglobin 94.8 L Sodium Potassium Chloride Carbon Dioxide BUN Creatinine Glucose POC Glucose 148 H Lactic Acid Calcium Magnesium Iron TIBC Ferritin AST ALT Lactate Dehydrogenase Troponin T C-Reactive Protein Total Protein Albumin Cholesterol LDL Cholesterol Direct HDL Cholesterol Urine WBC (Auto) Vancomycin Trough Coronavirus (PCR) Crossmatch 07/18/19 07/18/19 07/18/19 04:49 05:22 05:22 WBC 15.9 H RBC 3.00 L Hgb 8.1 L Hct 26.0 L MCV MCH 27 L MCHC 31 L RDW 19.4 H Plt Count 733 H Lymph % (Auto) 6.3 L [place] % (Auto) 7.4 H Lymph # 1.0 L [place] # 1.2 H Baso # 0.2 H Seg Neutrophils % 83.8 H Seg Neuts % (Manual) Lymphocytes % (Manual) Monocytes % (Manual) Nucleated RBC % Seg Neutrophils # 13.3 H Seg Neutrophils # Man Lymphocytes # (Manual) Monocytes # (Manual) PT INR D-Dimer ABG pH ABG pO2 ABG HCO3 ABG O2 Saturation ABG Base Excess ABG Hemoglobin Oxyhemoglobin Sodium Potassium Chloride 110.6 H Carbon Dioxide BUN 61 H Creatinine Glucose 109 H POC Glucose 116 H Lactic Acid Calcium Magnesium Iron TIBC Ferritin AST ALT Lactate Dehydrogenase Troponin T C-Reactive Protein Total Protein Albumin Cholesterol LDL Cholesterol Direct HDL Cholesterol Urine WBC (Auto) Vancomycin Trough Coronavirus (PCR) Crossmatch 07/18/19 07/18/19 07/18/19 12:23 18:06 22:20 WBC RBC Hgb Hct MCV MCH MCHC RDW Plt Count Lymph % (Auto) [place] % (Auto) Lymph # [place] # Baso # Seg Neutrophils % Seg Neuts % (Manual) Lymphocytes % (Manual) Monocytes % (Manual) Nucleated RBC % Seg Neutrophils # Seg Neutrophils # Man Lymphocytes # (Manual) Monocytes # (Manual) PT INR D-Dimer ABG pH 7.338 L ABG pO2 135.1 H ABG HCO3 ABG O2 Saturation ABG Base Excess ABG Hemoglobin 9.2 L Oxyhemoglobin Sodium Potassium Chloride Carbon Dioxide BUN Creatinine Glucose POC Glucose 114 H 113 H Lactic Acid Calcium Magnesium Iron TIBC Ferritin AST ALT Lactate Dehydrogenase Troponin T C-Reactive Protein Total Protein Albumin Cholesterol LDL Cholesterol Direct HDL Cholesterol Urine WBC (Auto) Vancomycin Trough Coronavirus (PCR) Crossmatch 07/18/19 07/19/19 07/19/19 23:33 03:45 05:18 WBC RBC Hgb Hct MCV MCH MCHC RDW Plt Count Lymph % (Auto) [place] % (Auto) Lymph # [place] # Baso # Seg Neutrophils % Seg Neuts % (Manual) Lymphocytes % (Manual) Monocytes % (Manual) Nucleated RBC % Seg Neutrophils # Seg Neutrophils # Man Lymphocytes # (Manual) Monocytes # (Manual) PT INR D-Dimer ABG pH 7.342 L ABG pO2 95.0 H ABG HCO3 ABG O2 Saturation ABG Base Excess ABG Hemoglobin 8.5 L Oxyhemoglobin Sodium Potassium Chloride Carbon Dioxide BUN Creatinine Glucose POC Glucose 125 H 111 H Lactic Acid Calcium Magnesium Iron TIBC Ferritin AST ALT Lactate Dehydrogenase Troponin T C-Reactive Protein Total Protein Albumin Cholesterol LDL Cholesterol Direct HDL Cholesterol Urine WBC (Auto) Vancomycin Trough Coronavirus (PCR) Crossmatch 07/19/19 07/19/19 07/19/19 08:45 08:45 11:47 WBC 15.9 H RBC 3.31 L Hgb 9.1 L Hct 28.4 L MCV MCH 27 L MCHC RDW 19.1 H Plt Count 858 H Lymph % (Auto) 4.9 L [place] % (Auto) 8.1 H Lymph # 0.8 L [place] # 1.3 H Baso # Seg Neutrophils % 85.5 H Seg Neuts % (Manual) Lymphocytes % (Manual) Monocytes % (Manual) Nucleated RBC % Seg Neutrophils # 13.6 H Seg Neutrophils # Man Lymphocytes # (Manual) Monocytes # (Manual) PT INR D-Dimer ABG pH ABG pO2 ABG HCO3 ABG O2 Saturation ABG Base Excess ABG Hemoglobin Oxyhemoglobin Sodium Potassium Chloride 111.6 H Carbon Dioxide BUN 50 H Creatinine 0.7 L Glucose 118 H POC Glucose 114 H Lactic Acid Calcium Magnesium Iron TIBC Ferritin AST ALT Lactate Dehydrogenase Troponin T C-Reactive Protein Total Protein Albumin Cholesterol LDL Cholesterol Direct HDL Cholesterol Urine WBC (Auto) Vancomycin Trough Coronavirus (PCR) Crossmatch 07/19/19 07/19/19 07/20/19 18:25 23:44 04:39 WBC RBC Hgb Hct MCV MCH MCHC RDW Plt Count Lymph % (Auto) [place] % (Auto) Lymph # [place] # Baso # Seg Neutrophils % Seg Neuts % (Manual) Lymphocytes % (Manual) Monocytes % (Manual) Nucleated RBC % Seg Neutrophils # Seg Neutrophils # Man Lymphocytes # (Manual) Monocytes # (Manual) PT INR D-Dimer ABG pH ABG pO2 ABG HCO3 ABG O2 Saturation ABG Base Excess ABG Hemoglobin Oxyhemoglobin Sodium Potassium Chloride 110.3 H Carbon Dioxide BUN 44 H Creatinine 0.6 L Glucose 120 H POC Glucose 115 H 117 H Lactic Acid Calcium Magnesium Iron TIBC Ferritin AST ALT Lactate Dehydrogenase Troponin T C-Reactive Protein Total Protein Albumin Cholesterol LDL Cholesterol Direct HDL Cholesterol Urine WBC (Auto) Vancomycin Trough Coronavirus (PCR) Crossmatch 07/20/19 07/21/19 07/21/19 05:30 11:59 17:40 WBC RBC Hgb Hct MCV MCH MCHC RDW Plt Count Lymph % (Auto) [place] % (Auto) Lymph # [place] # Baso # Seg Neutrophils % Seg Neuts % (Manual) Lymphocytes % (Manual) Monocytes % (Manual) Nucleated RBC % Seg Neutrophils # Seg Neutrophils # Man Lymphocytes # (Manual) Monocytes # (Manual) PT INR D-Dimer ABG pH ABG pO2 ABG HCO3 ABG O2 Saturation ABG Base Excess ABG Hemoglobin Oxyhemoglobin Sodium Potassium Chloride Carbon Dioxide BUN Creatinine Glucose POC Glucose 131 H 122 H 125 H Lactic Acid Calcium Magnesium Iron TIBC Ferritin AST ALT Lactate Dehydrogenase Troponin T C-Reactive Protein Total Protein Albumin Cholesterol LDL Cholesterol Direct HDL Cholesterol Urine WBC (Auto) Vancomycin Trough Coronavirus (PCR) Crossmatch 07/22/19 07/22/19 07/22/19 05:38 05:38 12:29 WBC 12.6 H RBC 3.19 L Hgb 8.9 L Hct 27.5 L MCV MCH MCHC RDW 18.9 H Plt Count 1101 H* Lymph % (Auto) [place] % (Auto) 12.2 H Lymph # [place] # 1.5 H Baso # Seg Neutrophils % 72.8 H Seg Neuts % (Manual) 76.0 H Lymphocytes % (Manual) 7.0 L Monocytes % (Manual) 14.0 H Nucleated RBC % 1.0 H Seg Neutrophils # 9.2 H Seg Neutrophils # Man 9.6 H Lymphocytes # (Manual) 0.9 L Monocytes # (Manual) 1.8 H PT INR D-Dimer ABG pH ABG pO2 ABG HCO3 ABG O2 Saturation ABG Base Excess ABG Hemoglobin Oxyhemoglobin Sodium Potassium 3.4 L Chloride Carbon Dioxide BUN 29 H Creatinine 0.5 L Glucose POC Glucose 116 H Lactic Acid Calcium Magnesium Iron TIBC Ferritin AST ALT Lactate Dehydrogenase Troponin T C-Reactive Protein Total Protein Albumin Cholesterol LDL Cholesterol Direct HDL Cholesterol Urine WBC (Auto) Vancomycin Trough Coronavirus (PCR) Crossmatch 07/22/19 07/22/19 07/23/19 18:20 23:51 04:52 WBC RBC Hgb Hct MCV MCH MCHC RDW Plt Count Lymph % (Auto) [place] % (Auto) Lymph # [place] # Baso # Seg Neutrophils % Seg Neuts % (Manual) Lymphocytes % (Manual) Monocytes % (Manual) Nucleated RBC % Seg Neutrophils # Seg Neutrophils # Man Lymphocytes # (Manual) Monocytes # (Manual) PT INR D-Dimer ABG pH ABG pO2 ABG HCO3 ABG O2 Saturation ABG Base Excess ABG Hemoglobin Oxyhemoglobin Sodium Potassium Chloride Carbon Dioxide BUN 24 H Creatinine 0.4 L Glucose POC Glucose 107 H 110 H Lactic Acid Calcium Magnesium Iron TIBC Ferritin AST ALT Lactate Dehydrogenase Troponin T C-Reactive Protein Total Protein Albumin Cholesterol LDL Cholesterol Direct HDL Cholesterol Urine WBC (Auto) Vancomycin Trough Coronavirus (PCR) Crossmatch 07/23/19 07/23/19 07/24/19 06:00 23:15 04:40 WBC RBC Hgb Hct MCV MCH MCHC RDW Plt Count Lymph % (Auto) [place] % (Auto) Lymph # [place] # Baso # Seg Neutrophils % Seg Neuts % (Manual) Lymphocytes % (Manual) Monocytes % (Manual) Nucleated RBC % Seg Neutrophils # Seg Neutrophils # Man Lymphocytes # (Manual) Monocytes # (Manual) PT INR D-Dimer ABG pH ABG pO2 73.5 L ABG HCO3 27.0 H 28.5 H ABG O2 Saturation 94.5 L ABG Base Excess ABG Hemoglobin 9.4 L 8.9 L Oxyhemoglobin 94.0 L 92.7 L Sodium Potassium Chloride Carbon Dioxide BUN Creatinine Glucose POC Glucose 117 H Lactic Acid Calcium Magnesium Iron TIBC Ferritin AST ALT Lactate Dehydrogenase Troponin T C-Reactive Protein Total Protein Albumin Cholesterol LDL Cholesterol Direct HDL Cholesterol Urine WBC (Auto) Vancomycin Trough Coronavirus (PCR) Crossmatch 07/24/19 07/24/19 07/25/19 05:25 12:06 00:16 WBC RBC Hgb Hct MCV MCH MCHC RDW Plt Count Lymph % (Auto) [place] % (Auto) Lymph # [place] # Baso # Seg Neutrophils % Seg Neuts % (Manual) Lymphocytes % (Manual) Monocytes % (Manual) Nucleated RBC % Seg Neutrophils # Seg Neutrophils # Man Lymphocytes # (Manual) Monocytes # (Manual) PT INR D-Dimer ABG pH ABG pO2 ABG HCO3 ABG O2 Saturation ABG Base Excess ABG Hemoglobin Oxyhemoglobin Sodium Potassium Chloride Carbon Dioxide BUN Creatinine Glucose POC Glucose 114 H 108 H 106 H Lactic Acid Calcium Magnesium Iron TIBC Ferritin AST ALT Lactate Dehydrogenase Troponin T C-Reactive Protein Total Protein Albumin Cholesterol LDL Cholesterol Direct HDL Cholesterol Urine WBC (Auto) Vancomycin Trough Coronavirus (PCR) Crossmatch 07/25/19 07/25/19 07/25/19 05:14 05:14 05:17 WBC 17.8 H RBC 3.32 L Hgb 9.2 L Hct 28.6 L MCV MCH MCHC RDW 19.9 H Plt Count 994 H Lymph % (Auto) [place] % (Auto) Lymph # [place] # Baso # Seg Neutrophils % Seg Neuts % (Manual) 82.0 H Lymphocytes % (Manual) 5.0 L Monocytes % (Manual) Nucleated RBC % Seg Neutrophils # Seg Neutrophils # Man 14.6 H Lymphocytes # (Manual) 0.9 L Monocytes # (Manual) 1.2 H PT INR D-Dimer ABG pH ABG pO2 ABG HCO3 ABG O2 Saturation ABG Base Excess ABG Hemoglobin Oxyhemoglobin Sodium Potassium Chloride Carbon Dioxide BUN Creatinine 0.4 L Glucose 110 H POC Glucose 107 H Lactic Acid Calcium Magnesium Iron TIBC Ferritin AST ALT Lactate Dehydrogenase Troponin T C-Reactive Protein Total Protein Albumin Cholesterol LDL Cholesterol Direct HDL Cholesterol Urine WBC (Auto) Vancomycin Trough Coronavirus (PCR) Crossmatch 07/25/19 07/25/19 07/26/19 11:55 23:49 06:01 WBC RBC Hgb Hct MCV MCH MCHC RDW Plt Count Lymph % (Auto) [place] % (Auto) Lymph # [place] # Baso # Seg Neutrophils % Seg Neuts % (Manual) Lymphocytes % (Manual) Monocytes % (Manual) Nucleated RBC % Seg Neutrophils # Seg Neutrophils # Man Lymphocytes # (Manual) Monocytes # (Manual) PT INR D-Dimer ABG pH ABG pO2 ABG HCO3 ABG O2 Saturation ABG Base Excess ABG Hemoglobin Oxyhemoglobin Sodium Potassium Chloride Carbon Dioxide BUN Creatinine Glucose POC Glucose 123 H 118 H 106 H Lactic Acid Calcium Magnesium Iron TIBC Ferritin AST ALT Lactate Dehydrogenase Troponin T C-Reactive Protein Total Protein Albumin Cholesterol LDL Cholesterol Direct HDL Cholesterol Urine WBC (Auto) Vancomycin Trough Coronavirus (PCR) Crossmatch 07/26/19 07/27/19 07/27/19 17:02 00:28 05:16 WBC RBC Hgb Hct MCV MCH MCHC RDW Plt Count Lymph % (Auto) [place] % (Auto) Lymph # [place] # Baso # Seg Neutrophils % Seg Neuts % (Manual) Lymphocytes % (Manual) Monocytes % (Manual) Nucleated RBC % Seg Neutrophils # Seg Neutrophils # Man Lymphocytes # (Manual) Monocytes # (Manual) PT INR D-Dimer ABG pH ABG pO2 63.4 L ABG HCO3 31.3 H ABG O2 Saturation 92.7 L ABG Base Excess 6.3 H ABG Hemoglobin 7.6 L Oxyhemoglobin 90.9 L Sodium Potassium Chloride Carbon Dioxide BUN Creatinine Glucose POC Glucose 116 H 158 H Lactic Acid Calcium Magnesium Iron TIBC Ferritin AST ALT Lactate Dehydrogenase Troponin T C-Reactive Protein Total Protein Albumin Cholesterol LDL Cholesterol Direct HDL Cholesterol Urine WBC (Auto) Vancomycin Trough Coronavirus (PCR) Crossmatch Allied health notes reviewed: nursing
[2019-07-28] MEDS: INSULIN LISPRO 100 UNIT/ML SUB-Q SCH ×4 (06:00→22:00)
--- NOTE | 2019-07-28 07:12 | Consultation ---
History of Present Illness Consult date: 07/28/19 Chief complaint: vdrf - History of present illness History of present illness: 69 yo M with hx of CVA, HTN, DM, Dementia who presented to the ER with SOB, respiratory failure and was treated accordingly. W/u revealed he was COVID+. Patient intubated by EMS. He already has a PEG tube. Surgery reconsulted to evaluate patient for tracheostomy. Past History Past Medical History: COPD, diabetes, hypertension, seizures Past Surgical History: Other (PEG) Social history: full code. denies: smoking, alcohol abuse Family history: hypertension Medications and Allergies Allergies Allergy/AdvReac Type Severity Reaction Status Date / Time No Known Allergies Allergy Unverified 09/09/16 16:29 Home Medications Medication Instructions Recorded Confirmed Last Taken Type Acetaminophen [Tylenol] 500 mg PO TID 07/04/19 07/04/19 Unknown History Albuterol Sulfate [Proair 90 mcg IH TID 07/04/19 07/04/19 Unknown History Digihaler] Amlodipine Besylate [Norvasc] 2.5 mg PO QDAY 07/04/19 07/04/19 Unknown History Aspirin [Aspirin BABY CHEW TAB] 81 mg PO QDAY 07/04/19 07/04/19 Unknown History Atorvastatin Calcium [Lipitor] 80 mg PO QDAY 07/04/19 07/04/19 Unknown History Benztropine Mesylate 0.5 mg PO QDAY 07/04/19 07/04/19 Unknown History Budesonide/Formoterol Fumarate 10.2 gm IH BID 07/04/19 07/04/19 Unknown History [Budesonide-Formoterol 160-4.5] Divalproex ER [DepaKOTE ER] 1,000 mg PO QDAY 07/04/19 07/04/19 Unknown History Docusate Sodium [Colace] 100 mg PO QDAY 07/04/19 07/04/19 Unknown History Folic Acid [Folvite] 1 mg PO QDAY 07/04/19 07/04/19 Unknown History Hydrophilic Ointment [Dermafix] 113 gm TP QDAY 07/04/19 07/04/19 Unknown History Losartan [Cozaar] 100 mg PO QDAY 07/04/19 07/04/19 Unknown History Metformin HCl [Metformin HCl ER] 500 mg PO QDAY 07/04/19 07/04/19 Unknown History Metoprolol Tartrate 25 mg PO BID 07/04/19 07/04/19 Unknown History Multivit with Minerals/Ginseng 1 each PO QDAY 07/04/19 07/04/19 Unknown History [Super Ginseng Multivit Cap] Quetiapine Fumarate [SEROquel Xr] 400 mg PO QHS 07/04/19 07/04/19 Unknown History Sertraline HCl [Zoloft] 100 mg PO QDAY 07/04/19 07/04/19 Unknown History Sildenafil Citrate [Viagra] 100 mg PO QDAY PRN 07/04/19 07/04/19 Unknown History Tamsulosin [Flomax] 0.4 mg PO QDAY 07/04/19 07/04/19 Unknown History Active Meds: Active Medications Acetaminophen (Tylenol) 650 mg TX Q6H PRN PRN Reason: Pain MILD(1-3)/Fever >100.5/MURO Acetaminophen (Tylenol) 650 mg PO Q6HR PRN PRN Reason: Pain, Mild (1-3) FEVER Last Admin: 07/15/19 20:35 Dose: 650 mg Documented by: Lipase/Protease/Amylase (Pancrewhitley Gilbert 10,500 Unit) 1 each FEEDTUBE PRN PRN PRN Reason: For Clogged Feeding Tube Last Admin: 07/20/19 06:15 Dose: 1 each Documented by: Aspirin (Baby Aspirin) 81 mg PO QDAY [facility] Last Admin: 07/27/19 10:12 Dose: 81 mg Documented by: Dextrose (D50w (25gm) Syringe) 50 ml IV Q30MIN PRN; Protocol PRN Reason: Hypoglycemia Docusate Sodium (Colace) 100 mg PO BID [facility] Last Admin: 07/27/19 22:24 Dose: 100 mg Documented by: Enoxaparin Sodium (Enoxaparin) 40 mg SUB-Q QDAY@1000 [facility] Last Admin: 07/27/19 10:12 Dose: 40 mg Documented by: Famotidine (Pepcid) 20 mg PO BID [facility] Last Admin: 07/27/19 22:24 Dose: 20 mg Documented by: Fentanyl (Sublimaze) 50 mcg IV Q10MIN PRN PRN Reason: ANALGESIA Folic Acid (Folvite) 1 mg PO QDAY [facility] Last Admin: 07/27/19 10:12 Dose: 1 mg Documented by: Hydrophilic Ointment (Vaseline Lip Therapy) 1 applic TP Q2HR PRN PRN Reason: Dry Lips Last Admin: 07/05/19 17:42 Dose: 1 applic Documented by: Norepinephrine (Levophed Drip 4 Mg/Ns 250 Ml) 4 mg in 250 mls @ 7.5 mls/hr IV TITR TAMMIE; Protocol Last Titration: 07/20/19 01:00 Dose: Infused Documented by: Fentanyl Citrate (Fentanyl Drip Premix) 2,000 mcg in 100 mls @ 4.75 mls/hr IV TITR TAMMIE; Protocol Last Admin: 07/27/19 14:15 Dose: 1 mcg/kg/hr, 4.75 mls/hr Documented by: Insulin Human Lispro (Humalog) 0 unit SUB-Q Q6HR TAMMIE; Protocol Last Admin: 07/27/19 18:00 Dose: Not Given Documented by: Levetiracetam (Keppra) 750 mg FEEDTUBE Q12HR TAMMIE Last Admin: 07/27/19 22:24 Dose: 750 mg Documented by: Metoprolol Tartrate (Metoprolol) 5 mg IV Q6HR PRN PRN Reason: Tachyarrhythmias Last Admin: 07/12/19 15:30 Dose: 5 mg Documented by: Multi-Ingred Cream/Lotion/Oil/Oint (Artificial Tears Ophth Oint) 1 applic OU Q4HR PRN PRN Reason: Dry Eye(s) Last Admin: 07/05/19 13:19 Dose: 1 applic Documented by: Naloxone HCl (Naloxone) 0.1 mg IV Q2MIN PRN PRN Reason: Res Rate </= 8 or 02 SAT < 92% Oxycodone/Acetaminophen (Percocet 5/325) 1 tab PO Q4H PRN PRN Reason: Pain, Moderate (4-6) Scopolamine (Transderm-Scop) 1 each TD Q3D TAMMIE Last Admin: 07/25/19 11:51 Dose: 1 each Documented by: Simple Syrup (Simple Syrup) 15 ml FEEDTUBE PRN PRN PRN Reason: Hypoglycemia Last Admin: 07/10/19 21:56 Dose: 15 ml Documented by: Simple Syrup (Simple Syrup) 30 ml FEEDTUBE PRN PRN PRN Reason: Hypoglycemia Sodium Bicarbonate (Sodium Bicarbonate) 325 mg FEEDTUBE PRN PRN PRN Reason: For Clogged Feeding Tube Last Admin: 07/20/19 10:20 Dose: 325 mg Documented by: Sodium Chloride (Sodium Chloride Flush Syringe 10 Ml) 10 ml IV BID [facility] Last Admin: 07/27/19 10:14 Dose: 10 ml Documented by: Sodium Chloride (Sodium Chloride Flush Syringe 10 Ml) 10 ml IV PRN PRN PRN Reason: LINE FLUSH Sodium Hypochlorite (Dakin's Half Strength) 1 applic TP BID [facility] Last Admin: 07/27/19 10:15 Dose: 1 applicatio Documented by: Review of Systems ROS unobtainable: due to endotracheal tube, due to mental status Exam Vital Signs Pulse Resp 93 H 23 07/03/19 19:28 07/03/19 19:28 Narrative exam: Gen: Intubated, unresponsive ENT: ETT in place CV: s1, S2+ Resp: on vent Abd: PEG in place Ext: +edema : carroll with clear yellow urine Results - Labs 07/25/19 05:14 07/25/19 05:14 - Imaging Chest x-ray: report reviewed, image reviewed Assessment and Plan 69 yo M with 1. VDRF 2. COVID+ PNA Plan: 1. continue vent management per ICU team 2. COVID treatment per ID/1' service 3. Patient is an acceptable candidate for tracheostomy. Will discuss procedure with POA/spouse. As patient is COVID+, will need to wait 4 weeks from when he tested positive (07/04/19). Will then need to retest for COVID to determine if negative before proceeding. Thank you, please call with questions.
--- NOTE | 2019-07-28 08:49 | Progress Note ---
Assessment and Plan Assessment and plan: 69-year-old male patient with PMH of CVA with RHP, HTN, DM2, SCZ, Dementia, Alcohol use D/o, Seizure D/O, presents to the emergency department via EMS from home with progressive SOB and impending espiratory failure with an unresponsive . PT was intubated was admitted through emergency room to ICU treated for sepsis, b/l PNA, acute respiratory failure received antibiotics. Patient was tested positive for COVID19. Evaluated by ID , received antibiotics Plaquenil, and inflammatory markers were checked and followed. Patient was hypotensive requiring Levophed, continues to be hypotensive currently on Levophed, unable to wean remains intubated on ventilatory support, critically ill, DNR status howev er family wants full treatment. --COVid-19 infection with pneumonia with severe sepsis Received Plaquenil and cefepime, monitor off antibiotics ID following --Septic shock: On Levophed Persistent hypotension, titrate to systolic blood pressure more than 100 -- Acute respiratory Failure with Hypoxia Due to bilateral PNA with COVID 19 infection. On ventilatory support, unable to wean Pulmonary critical following --COPD with exacerbation Likely due to COVID-19 pneumonia Continue scheduled nebs --Anemia, Microcytic persistent s/p total 3 unit of PRBC, today Hb today 9.1 --Pressure Ulcers: POA buttocks, right lateral foot area wound and supportive care --Hyponatremia, resolved --DM type 2: Accu-Chek SCC tube feeding, insulin as needed --h/o HTN Essential, now hypotensive On Levophed --Seizure D/o/CVA/immobility/BIpolar D/o/SCZ Seizure precautions, antiepileptic medications --Severe PCM, TF supportive care, dietary following patient is DNR- Called and verified information Very poor prognosis, Recommend hospice 07/04: COVID +ve, start on plaquinil, called no answer 07/05: transfuse one unit PRBC, Hb dropped to ~6, called and updated 07/06; H&H stable, serum chemistry improved. On mechanical ventilation with high inflammatory markers. Continue Plaquenil and empiric antibiotics. ID following, prognosis remains guarded and extremely poor. 07/07: On mechanical ventilation with high inflammatory markers. Continue Plaquenil and empiric antibiotics. ID following, prognosis remains guarded and extremely poor. 07/08: Called today and verified the CODE STATUS. Patient remains DNR. He is still intubated, with poor prognosis. Continue to follow inflammatory markers. 07/09 wean off from vent as tolerated, completed empiric antibiotic and Plaqu enil 07/10 wean off from vent as tolerated. poor prognosis 07/11 hb 6.7 today, transfuse one PRBC. wean off from vent as tolerated. poor prognosis 07/12 remains critically on vent. Hb 6.9 07/13 Hb dropped to 6.6, transfuse 1 unit of PRBC, remains on vent critically ill Hypotensive, fluid bolus, if no improvement start Levophed 07/14; remains anemic with hemoglobin of 6.8, received total 3 units of PRBC Additional 1 unit of PRBC today, stool for occult blood to rule out GI causes Started back on Levophed due to hypotension 07/15; patient remains critically ill, hypotensive on Levophed 07/16: Today remains intubated on vent, persistent hypotension on Levophed 07/17; clinically no change, pressor dependent[on Levophed] DNR status 07/18: Patient remains hypotensive requiring Levophed, intubated on vent Unable to wean, critically ill. DNR 07/20/2019 Patient remains hypotensive requiring Levophed, intubated on vent. Patient currently with AC mode ventilation, rate 20, tidal volume 500, FiO2 40% and PEEP 6. Patient is a poor prognosis and apparently was on hospice recently. 07/21/2019. Patient with PEG tube that was clogged yesterday. surgery evaluated the patient and noted Very long PEG tubing with thick material inside. The entire tube was stripped and a large amount of formed tube feed was expressed. The tube was then flushed with sprite and flushed easily. Tube clamped. Patient currently with AC mode ventilation, rate 20, tidal volume 500, FiO2 40% and PEEP 6. Patient is a poor prognosis and apparently was on hospice recently. 07/22/2019. Patient currently with AC mode ventilation, rate 20, tidal volume 500, FiO2 30% and PEEP 6. Patient on sedation with fentanyl drip. Continue Levophed to maintain MAP greater than 65. Patient is a poor prognosis and apparently was on hospice recently. 07/23/2019. Patient currently with AC mode ventilation, rate 20, tidal volume 500, FiO2 30% and PEEP 6. Patient on sedation with fentanyl drip. Continue Levophed to maintain MAP greater than 65. Patient is a poor prognosis and apparently was on hospice recently. 07/24/2019 Patient with Covid-19 infection with pneumonia, acute respiratory failure, intubated on ventilator. No more fever. Continue current management. 07/25/2019 Patient with Covid-19 infection with pneumonia, acute respiratory fail ure, intubated on ventilator. fever is now resolved. Sedated with propofol 07/26/2019 Patient with covid-19 infection. Still intubated, on vent. 07/27/2019 Patient with Covid-19. he is still critically ill. patient has DNR order. 07/28/2019 Patient with Covid-19 infection. Will repeat labs today. Surgeon consulted for tracheostomy. The high probability of a clinically significant, sudden or life threatening deterioration of the [respiratory, CVS, FERMENTING CELLARS RECEIVER] system(s) required my full and direct attention, intervention and personal management. The aggregate critical care time was [33] minutes. This time is in addition to time spent performing reported procedures but includes the following: [x] Data Review and interpretation [x] Patient assessment and monitoring of vital signs [x] Documentation [x] Medication orders and management History Interval history: Patient with Covid-19 infection Still intubated No more fever Hospitalist Physical - Physical exam Narrative exam: GEN: Not in acute distress, intubated,obese HEENT: Normocephalic, atraumatic, Neck: supple, No JVD Lungs: Bilateral crackles, heart;S1 and S2 reg, no murmurs, rubs or gallop Abd:soft, non tender, non distended, normal bowel sounds,PEG tube Ext: No edema, no clubbing, no cyanosis, Neuro: Intubated, on ventilator,sedated - Constitutional Vitals: Temp Pulse Resp BP Pulse Ox 98.2 F 107 H 20 138/67 97 07/28/19 04:00 07/28/19 06:31 07/28/19 06:31 07/28/19 06:31 07/28/19 06:31 General appearance: Present: no acute distress, well-nourished, other (Orally intubated on vent) Results - Labs CBC & Chem 7: 07/25/19 05:14 07/25/19 05:14 Labs: Laboratory Last Values WBC 17.8 K/mm3 (4.5-11.0) H 07/25/19 05:14 RBC 3.32 M/mm3 (3.65-5.03) L 07/25/19 05:14 Hgb 9.2 gm/dl (11.8-15.2) L 07/25/19 05:14 Hct 28.6 % (35.5-45.6) L 07/25/19 05:14 MCV 86 fl (84-94) 07/25/19 05:14 MCH 28 pg (28-32) 07/25/19 05:14 MCHC 32 % (32-34) 07/25/19 05:14 RDW 19.9 % (13.2-15.2) H 07/25/19 05:14 Plt Count 994 K/mm3 (140-440) H 07/25/19 05:14 Lymph % (Auto) 4.9 % (13.4-35.0) L 07/19/19 08:45 [place] % (Auto) 12.2 % (0.0-7.3) H 07/22/19 05:38 Eos % (Auto) 1.0 % (0.0-4.3) 07/19/19 08:45 Baso % (Auto) 0.5 % (0.0-1.8) 07/19/19 08:45 Lymph # 0.8 K/mm3 (1.2-5.4) L 07/19/19 08:45 [place] # 1.5 K/mm3 (0.0-0.8) H 07/22/19 05:38 Eos # 0.2 K/mm3 (0.0-0.4) 07/19/19 08:45 Baso # 0.1 K/mm3 (0.0-0.1) 07/19/19 08:45 Add Manual Diff Complete 07/25/19 05:14 Total Counted 100 07/25/19 05:14 Seg Neutrophils % 72.8 % (40.0-70.0) H 07/22/19 05:38 Seg Neuts % (Manual) 82.0 % (40.0-70.0) H 07/25/19 05:14 Band Neutrophils % 3.0 % 07/25/19 05:14 Lymphocytes % (Manual) 5.0 % (13.4-35.0) L 07/25/19 05:14 Reactive Lymphs % (Man) 0 % 07/25/19 05:14 Monocytes % (Manual) 7.0 % (0.0-7.3) 07/25/19 05:14 Eosinophils % (Manual) 2.0 % (0.0-4.3) 07/25/19 05:14 Basophils % (Manual) 0 % (0.0-1.8) 07/25/19 05:14 Metamyelocytes % 1.0 % 07/25/19 05:14 Myelocytes % 0 % 07/25/19 05:14 Promyelocytes % 0 % 07/25/19 05:14 Blast Cells % 0 % 07/25/19 05:14 Nucleated RBC % Not Reportable 07/25/19 05:14 Seg Neutrophils # 9.2 K/mm3 (1.8-7.7) H 07/22/19 05:38 Seg Neutrophils # Man 14.6 K/mm3 (1.8-7.7) H 07/25/19 05:14 Band Neutrophils # 0.5 K/mm3 07/25/19 05:14 Lymphocytes # (Manual) 0.9 K/mm3 (1.2-5.4) L 07/25/19 05:14 Abs React Lymphs (Man) 0.0 K/mm3 07/25/19 05:14 Monocytes # (Manual) 1.2 K/mm3 (0.0-0.8) H 07/25/19 05:14 Eosinophils # (Manual) 0.4 K/mm3 (0.0-0.4) 07/25/19 05:14 Basophils # (Manual) 0.0 K/mm3 (0.0-0.1) 07/25/19 05:14 Metamyelocytes # 0.2 K/mm3 07/25/19 05:14 Myelocytes # 0.0 K/mm3 07/25/19 05:14 Promyelocytes # 0.0 K/mm3 07/25/19 05:14 Blast Cells # 0.0 K/mm3 07/25/19 05:14 WBC Morphology Not Reportable 07/25/19 05:14 Hypersegmented Neuts Not Reportable 07/25/19 05:14 Hyposegmented Neuts Not Reportable 07/25/19 05:14 Hypogranular Neuts Not Reportable 07/25/19 05:14 Smudge Cells Not Reportable 07/25/19 05:14 Toxic Granulation Not Reportable 07/25/19 05:14 Toxic Vacuolation Not Reportable 07/25/19 05:14 Dohle Bodies Not Reportable 07/25/19 05:14 Pelger-Huet Anomaly Not Reportable 07/25/19 05:14 Mendy Rods Not Reportable 07/25/19 05:14 Platelet Estimate Consistent w auto 07/25/19 05:14 Clumped Platelets Not Reportable 07/25/19 05:14 Plt Clumps, EDTA Not Reportable 07/25/19 05:14 Large Platelets Not Reportable 07/25/19 05:14 Giant Platelets Not Reportable 07/25/19 05:14 Platelet Satelliting Not Reportable 07/25/19 05:14 Plt Morphology Comment Not Reportable 07/25/19 05:14 RBC Morphology Not Reportable 07/25/19 05:14 Dimorphic RBCs Not Reportable 07/25/19 05:14 Polychromasia Rare 07/25/19 05:14 Hypochromasia Rare 07/25/19 05:14 Poikilocytosis Not Reportable 07/25/19 05:14 Anisocytosis Few 07/25/19 05:14 Microcytosis Not Reportable 07/25/19 05:14 Macrocytosis Not Reportable 07/25/19 05:14 Spherocytes Not Reportable 07/25/19 05:14 Pappenheimer Bodies Not Reportable 07/25/19 05:14 Sickle Cells Not Reportable 07/25/19 05:14 Target Cells Not Reportable 07/25/19 05:14 Tear Drop Cells Not Reportable 07/25/19 05:14 Ovalocytes Not Reportable 07/25/19 05:14 Helmet Cells Not Reportable 07/25/19 05:14 [place]-Snook Bodies Not Reportable 07/25/19 05:14 [place] Rings Not Reportable 07/25/19 05:14 [place] Cells Not Reportable 07/25/19 05:14 Bite Cells Not Reportable 07/25/19 05:14 Crenated Cell Not Reportable 07/25/19 05:14 Elliptocytes Rare 07/25/19 05:14 Acanthocytes (Spur) Not Reportable 07/25/19 05:14 Rouleaux Not Reportable 07/25/19 05:14 Hemoglobin C Crystals Not Reportable 07/25/19 05:14 Schistocytes Not Reportable 07/25/19 05:14 Malaria parasites Not Reportable 07/25/19 05:14 Jeevan Bodies Not Reportable 07/25/19 05:14 Hem Pathologist Commnt No 07/25/19 05:14 PT 16.0 Sec. (12.2-14.9) H 07/03/19 22:20 INR 1.26 (0.87-1.13) H 07/03/19 22:20 D-Dimer 1142.18 ng/mlDDU (0-234) H 07/08/19 00:45 ABG pH 7.430 pH Units (7.350-7.450) 07/27/19 05:16 ABG pCO2 48.2 mm Hg 07/27/19 05:16 ABG pO2 63.4 mm Hg (80.0-90.0) L 07/27/19 05:16 ABG HCO3 31.3 mmol/L (20.0-26.0) H 07/27/19 05:16 ABG O2 Saturation 92.7 % (95.0-99.0) L 07/27/19 05:16 ABG O2 Content 9.8 (0.0-44) 07/27/19 05:16 ABG Base Excess 6.3 mmol/L (-2.0-3.0) H 07/27/19 05:16 ABG Hemoglobin 7.6 gm/dl (14.0-18.0) L 07/27/19 05:16 ABG Carboxyhemoglobin 1.6 % (0.0-5.0) 07/27/19 05:16 ABG Methemoglobin 0.4 % (0.0-1.5) 07/27/19 05:16 Oxyhemoglobin 90.9 % (95.0-99.0) L 07/27/19 05:16 FiO2 25 % 07/27/19 05:16 Sodium 137 mmol/L (137-145) 07/25/19 05:14 Potassium 3.8 mmol/L (3.6-5.0) 07/25/19 05:14 Chloride 103.2 mmol/L (98-107) 07/25/19 05:14 Carbon Dioxide 27 mmol/L (22-30) 07/25/19 05:14 Anion Gap 11 mmol/L 07/25/19 05:14 BUN 18 mg/dL (9-20) 07/25/19 05:14 Creatinine 0.4 mg/dL (0.8-1.5) L 07/25/19 05:14 Estimated GFR > 60 ml/min 07/25/19 05:14 BUN/Creatinine Ratio 45 % 07/25/19 05:14 Glucose 110 mg/dL (75-100) H 07/25/19 05:14 POC Glucose 77 (70-105) 07/28/19 05:19 Osmolality 268 Mosm/kg 07/05/19 04:00 Lactic Acid 3.30 mmol/L (0.7-2.0) H* 07/04/19 07:05 Uric Acid 7.2 mg/dL (3.5-7.6) 07/05/19 04:00 Calcium 9.3 mg/dL (8.4-10.2) 07/25/19 05:14 Phosphorus 3.60 mg/dL (2.5-4.5) 07/05/19 04:00 Magnesium 1.80 mg/dL (1.7-2.3) 07/11/19 05:14 Iron 9 ug/dL (49-181) L 07/04/19 07:05 TIBC 97 mcg/dL (250-450) L 07/04/19 07:05 Ferritin 839.0 ng/mL (13.0-400.0) H 07/08/19 00:45 Total Bilirubin 0.20 mg/dL (0.1-1.2) 07/04/19 07:05 AST 73 units/L (5-40) H 07/04/19 07:05 ALT 91 units/L (7-56) H 07/04/19 07:05 Alkaline Phosphatase 114 units/L (35-129) 07/04/19 07:05 Ammonia 35.0 umol/L (25-60) 07/03/19 23:58 Lactate Dehydrogenase 277 units/L (91-180) H 07/10/19 04:00 Troponin T 0.013 ng/mL (0.00-0.029) 07/04/19 07:05 C-Reactive Protein 15.10 mg/dL (0.00-1.30) H 07/10/19 04:00 Total Protein 5.5 g/dL (6.3-8.2) L 07/04/19 07:05 Albumin 2.0 g/dL (3.9-5) L 07/04/19 07:05 Albumin/Globulin Ratio 0.6 % 07/04/19 07:05 Triglycerides 33 mg/dL (2-149) 07/03/19 19:57 Cholesterol 47 mg/dL (50-199) L 07/03/19 19:57 LDL Cholesterol Direct 25 mg/dL (50-130) L 07/03/19 19:57 HDL Cholesterol 20 mg/dL (40-59) L 07/03/19 19:57 Cholesterol/HDL Ratio 2.35 % 07/03/19 19:57 Procalcitonin 0.17 ng/mL (<0.15) 07/26/19 04:48 TSH 2.170 mlU/mL (0.270-4.200) 07/03/19 22:20 Total Cortisol 28.0 mcg/dL () 07/05/19 10:11 Urine Color Naima (Yellow) 07/03/19 21:13 Urine Turbidity Cloudy (Clear) 07/03/19 21:13 Urine pH 5.0 (5.0-7.0) 07/03/19 21:13 Ur Specific [place] 1.016 (1.003-1.030) 07/03/19 21:13 Urine Protein 30 mg/dl mg/dL (Negative) 07/03/19 21:13 Urine Glucose (UA) Neg mg/dL (Negative) 07/03/19 21:13 Urine Ketones Neg mg/dL (Negative) 07/03/19 21:13 Urine Blood Neg (Negative) 07/03/19 21:13 Urine Nitrite Neg (Negative) 07/03/19 21:13 Urine Bilirubin Neg (Negative) 07/03/19 21:13 Urine Urobilinogen 2.0 mg/dL (<2.0) 07/03/19 21:13 Ur Leukocyte Esterase Neg (Negative) 07/03/19 21:13 Urine WBC (Auto) 12.0 /HPF (0.0-6.0) H 07/03/19 21:13 Urine RBC (Auto) 6.0 /HPF (0.0-6.0) 07/03/19 21:13 U Epithel Cells (Auto) 1.0 /HPF (0-13.0) 07/03/19 21:13 Urine Bacteria (Auto) 1+ /HPF (Negative) 07/03/19 21:13 Urine WBC Clumps Few /HPF 07/03/19 21:13 Urine Mucus Few /HPF 07/03/19 21:13 Urine Osmolality 293 Mosm/kg 07/05/19 08:15 Vancomycin Trough 23.2 ug/mL (5.0-20.0) H 07/05/19 17:54 Urine Opiates Screen Presumptive negative 07/03/19 21:13 Urine Methadone Screen Presumptive negative 07/03/19 21:13 Ur Barbiturates Screen Presumptive negative 07/03/19 21:13 Ur Phencyclidine Scrn Presumptive negative 07/03/19 21:13 Ur Amphetamines Screen Presumptive negative 07/03/19 21:13 U Benzodiazepines Scrn Presumptive negative 07/03/19 21:13 Urine Cocaine Screen Presumptive negative 07/03/19 21:13 U Marijuana (THC) Screen Presumptive negative 07/03/19 21:13 Drugs of Abuse Note Disclamer 07/03/19 21:13 Plasma/Serum Alcohol < 0.01 % (0-0.07) 07/03/19 23:58 Coronavirus (PCR) Positive (Negative) A 07/04/19 10:09 Blood Type B POSITIVE 07/12/19 08:49 Antibody Screen Negative 07/12/19 08:49 Crossmatch See Detail 07/12/19 08:49 Wright/IV: Voiding Method Indwelling Catheter IV Catheter Type [Left Upper Mid-line arm] IV Catheter Type [Right INT / Saline Lock Forearm] IV Catheter Type [Right Hand] INT / Saline Lock IV Catheter Type [Right CVL Femoral] IV Catheter Type [Left INT / Saline Lock External Jugular] Active Medications - Current Medications Current Medications: Generic Name Dose Route Start Last Admin Trade Name Freq PRN Reason Stop Dose Admin Acetaminophen 650 mg 07/04/19 04:24 Tylenol MT Q6H PRN Pain MILD(1-3)/Fever >100.5/MURO Acetaminophen 650 mg 07/10/19 04:00 07/15/19 20:35 Tylenol PO 650 mg Q6HR PRN Administration Pain, Mild (1-3) FEVER Lipase/Protease/Amylase 1 each 07/04/19 10:04 07/20/19 06:15 Pancrewhitley Gilbert 10,500 Unit FEEDTUBE 1 each PRN PRN Administration For Clogged Feeding Tube Aspirin 81 mg 07/05/19 10:00 07/27/19 10:12 Baby Aspirin PO 81 mg QDAY TAMMIE Administration Dextrose 50 ml 07/04/19 06:54 D50w (25gm) Syringe IV Q30MIN PRN Hypoglycemia Protocol Docusate Sodium 100 mg 07/10/19 10:00 07/27/19 22:24 Colace PO 100 mg BID TAMMIE Administration Enoxaparin Sodium 40 mg 07/24/19 10:00 07/27/19 10:12 Enoxaparin SUB-Q 40 mg QDAY@1000 TAMMIE Administration Famotidine 20 mg 07/23/19 22:00 07/27/19 22:24 Pepcid PO 20 mg BID TAMMIE Administration Fentanyl 50 mcg 07/21/19 15:18 Sublimaze IV Q10MIN PRN ANALGESIA Folic Acid 1 mg 07/05/19 10:00 07/27/19 10:12 Folvite PO 1 mg QDAY TAMMIE Administration Hydrophilic Ointment 1 applic 07/03/19 19:56 07/05/19 17:42 Vaseline Lip Therapy TP 1 applic Q2HR PRN Administration Dry Lips Norepinephrine 4 mg in 250 mls @ 7.5 mls/hr 07/03/19 23:00 07/20/19 01:00 Levophed Drip 4 Mg/Ns 250 Ml IV Infused TITR TAMMIE Titration Protocol 2 MCG/MIN Fentanyl Citrate 2,000 mcg in 100 mls @ 4.75 mls/hr 07/21/19 16:00 07/27/19 14:15 Fentanyl Drip Premix IV 1 mcg/kg/hr TITR TAMMIE 4.75 mls/hr Administration Protocol 1 MCG/KG/HR Insulin Human Lispro 0 unit 07/07/19 12:00 07/27/19 18:00 Humalog SUB-Q Not Given Q6HR TAMMIE Protocol Levetiracetam 750 mg 07/06/19 11:00 07/27/19 22:24 Keppra FEEDTUBE 750 mg Q12HR TAMMIE Administration Metoprolol Tartrate 5 mg 07/12/19 15:08 07/12/19 15:30 Metoprolol IV 5 mg Q6HR PRN Administration Tachyarrhythmias Multi-Ingred Cream/Lotion/Oil/Oint 1 applic 07/03/19 19:56 07/05/19 13:19 Artificial Tears Ophth Oint OU 1 applic Q4HR PRN Administration Dry Eye(s) Naloxone HCl 0.1 mg 07/04/19 04:24 Naloxone IV Q2MIN PRN Res Rate </= 8 or 02 SAT < 92% Oxycodone/Acetaminophen 1 tab 07/19/19 14:17 Percocet 5/325 PO Q4H PRN Pain, Moderate (4-6) Scopolamine 1 each 07/10/19 11:00 07/25/19 11:51 Transderm-Scop TD 1 each Q3D TAMMIE Administration Simple Syrup 15 ml 07/04/19 10:04 07/10/19 21:56 Simple Syrup FEEDTUBE 15 ml PRN PRN Administration Hypoglycemia Simple Syrup 30 ml 07/04/19 10:04 Simple Syrup FEEDTUBE PRN PRN Hypoglycemia Sodium Bicarbonate 325 mg 07/04/19 10:04 07/20/19 10:20 Sodium Bicarbonate FEEDTUBE 325 mg PRN PRN Administration For Clogged Feeding Tube Sodium Chloride 10 ml 07/04/19 10:00 07/27/19 10:14 Sodium Chloride Flush Syringe 10 Ml IV 10 ml BID TAMMIE Administration Sodium Chloride 10 ml 07/04/19 04:24 Sodium Chloride Flush Syringe 10 Ml IV PRN PRN LINE FLUSH Sodium Hypochlorite 1 applic 07/10/19 14:00 07/27/19 10:15 Dakin's Half Strength TP 1 applicatio BID TAMMIE Administration Nutrition/Malnutrition Assess - Dietary Evaluation Nutrition/Malnutrition Findings: Nutrition Notes Start: 07/04/19 09:17 Freq: Status: Active Protocol: Document 07/23/19 16:03 RAMANDEEP (Rec: 07/23/19 16:09 RAMANDEEP [id number] [email or web address]) Nutrition Notes Initial or Follow up Reassessment Current Diagnosis Acute Kidney Injury,COPD, Decubitus(Pressure Ulcer), Diabetes,Hypertension Other Pertinent Diagnosis COVID-19 (+), pneu, seizures, schizophrenia, Buttock and R foot PU, Current Diet TF - Nepro at 45ml/hr Labs/Tests Reviewed Pertinent Medications Reviewed Height 5 ft 11 in Weight 97.2 kg [place] Body Weight (kg) 78.18 BMI 29.9 Weight change and time frame Wt change noted Subjective/Other Information RD spoke with RN via phone at 15:27. Pt tolerating TF at goal rate. Pt remains on vent support. Percent of energy/protein needs met: 100% energy 87% pro Burn Absent Trauma Absent #2 Nutrition Diagnosis Increased nutrient needs ( specify in comment below) Diagnosis Progress(for reassessment Continues documentation) #1 Nutrition Diagnosis Inadequate oral intake Diagnosis Progress(for reassessment Continues documentation) Is patient on ventilator? Yes Is Patient Ambulatory and/or Out of Bed No REE-([place]-confined to bed) 0530.500 Additional Notes Use pro needs based on wt from previous assessment - current wt likely related to fluid retention Protein: 101-168g (1.2-2g/kg) Fluid: 1 ml/kcal or per MD Nutrition Intervention Nutrition Support: Nepro 1.8 at 45ml/hr Flush 200ml q4h Kcal 1,944 Protein (gm) 87 Fluid (mL) 785 Goal #1 TF tolerance Goal #2 TF to meet at least 75% of energy and protein needs Follow-Up By: 07/30/19 Additional Comments F/U: stable TF, vent status, wt
[2019-07-28] MEDS: levETIRAcetam 500 MG/5 ML ORAL LIQD FEEDTUBE SCH ×2 (09:56→21:58)
[2019-07-28] MEDS: FAMOTIDINE 20 MG TAB PO SCH ×2 (09:57→21:59)
[2019-07-28] MEDS: ENOXAPARIN 40 MG/0.4 ML INJ SUB-Q SCH (09:57)
[2019-07-28] MEDS: ASPIRIN 81 MG TAB CHEW PO SCH (09:57)
[2019-07-28] MEDS: FOLIC ACID 1 MG TAB PO SCH (09:57)
[2019-07-28] MEDS: DOCUSATE SODIUM 100 MG/10 ML ORAL LIQD PO SCH ×2 (09:58→21:58)
[2019-07-28] MEDS: SODIUM HYPOCHLORITE, DAKIN'S 1/2 STRENGTH (0.25%) 473 ML TOPICAL SOLN TP SCH ×2 (10:30→21:59)
--- NOTE | 2019-07-28 10:50 | Progress Note ---
Assessment and Plan Cultures: 07/03/2019 urine culture: No growth 07/03/2019 Tracheal aspirate: E.coli A/P: 69-year-old male with CVA, hypertension, dementia, schizophrenia, alcohol use disorder was admitted to the emergency room after being brought in by EMS with progressive shortness of breath and unresponsiveness. He was noted to have agonal breathing and a faint pulse requiring CPR. It seems patient was on hospice recently. #Shock, likely septic: Lactic acidosis. Remains off pressors. #Severe COVID-19 disease and pneumonia: Elevated markers. Completed Plaquenil. Completed Ceftriaxone for treatment E.coli in tracheal aspirate. #Acute respiratory failure: on mechanical ventilation. #Transaminitis: Likely from COVID-19, shock #Leucocytosis: ?reactive from above. Recs: continue supportive care for COVID-19 patient is DNR. Poor prognosis. Procal minimally elevated, even in setting of ESRD. Continue supportive care. Yanna Calzada MD, FACP [facility] C: [phone] O: [phone] F: [phone] Subjective Date of service: 07/28/19 Principal diagnosis: Bilateral pneumonia, severe sepsis with septic shock, encephalopathy Interval history: No fever. Not on pressors. Remains intubated, on the vent. Objective - Exam Narrative Exam: Physical Exam (reviewed in chart due to PPE conservation) Constitutional: intubated, sedated, on the vent Head, Ears, Nose: normocephalic, atraumatic Eyes: limited due to PPE conservation strategy Neck: intubated Oral: intubated Cardiovascular: limited due to PPE conservation strategy Respiratory: limited due to PPE conservation strategy GI: limited due to PPE conservation strategy Musculoskeletal: limited due to PPE conservation strategy Skin: limited due to PPE conservation strategy Hem/Lymphatic: limited due to PPE conservation strategy Psych: no agitation Neurological: sedated, intubated, on the vent, exam limited - Constitutional Vitals: Vital Signs Temp Pulse Resp BP Pulse Ox 98.2 F 111 H 26 H 137/75 100 07/28/19 04:00 07/28/19 09:36 07/28/19 09:36 07/28/19 09:36 07/28/19 09:36 Temperature -Last 24 Hours Temperature 98.2 F Temperature 98.8 F Temperature 98.9 F Temperature 98.0 F Temperature 96.2 F - Labs CBC & Chem 7: 07/25/19 05:14 07/25/19 05:14
[2019-07-28 10:52] LABS: Hematocrit 26.8 % (35.5-45.6); Hemoglobin 8.8 gm/dl (11.8-15.2); Mean Corpuscular HGB Conc 33 % (32-34); Mean Corpuscular Volume 84 fl (84-94); Platelet Count 730 K/mm3 (140-440); Red Cell Distribution Width 19.9 % (13.2-15.2)
[2019-07-28 11:06] LABS: BUN/Creatinine Ratio 26; Blood Urea Nitrogen 13 mg/dL (9-20); Hemolysis Index 6
[2019-07-28] MEDS ORDERED: POTASSIUM CHLORIDE 20 MEQ PACKET FEEDTUBE ONE (11:20)
[2019-07-28] MEDS: SCOPOLAMINE TRANSDERMAL PATCH 72 HR TD SCH (11:30)
--- NOTE | 2019-07-28 11:43 | Progress Note ---
Assessment and Plan S/p Cardiopulmonary arrest with ROSC Severe Sepsis with septic shock. Acute hypoxemic respiratory failure on MVS COVID-19 positive with elevated markers Bilateral pneumonia Elevated LFTs. Oropharyngeal dysphagia s/p PEG Acute kidney injury Decubitus ulcers-unstageable Moderate protein calorie malnutriton [id number] metabolic acidosis Leukocytosis -improving Thrombocytosis Microcytic anemia -Continue enoxaparin for VTE prophylaxis- currently has severe thrombocytosis -On Fentanyl infusion, wean down to 1mcg to allow fro weaning trials -Will coordinate sedation interruption( RN) and SBT( RT) today to optimize chances of success with weaning trial -Continue all critical care as documented below -ABG, CXR prn - continue airborne, droplet and contact isolation for COVID-19 - continue wound care per WCT - sedation prn for target RASS 0 to -1 - continue to wean supplemental oxygen for target O2 sat's > 90% - Daily SAT's and SBT assessment as tolerated - VAP bundle addressed - continue lung protective strategies - continue bronchodilators with pulmonary hygiene per RT - wean per pulmonary driven protocols otherwise - accuchecks with glycemic control per SSI (While critically ill target blood glucose of 140-180 mg/dL; avoid hypoglycemia) - continue to avoid benzodiazepines, reduce the possibility of delirium - prn analgesia per CPOT score - Maintenance of sleep-wake cycle, avoid delirium - continue enteral nutritional support at goal rate as tolerated - VTE prophylaxis-SCDs -Stress ulcer prophylaxis- Famotidine - PT/OT/ROM exercises - continue mobility protocol, off loading and skin assessment for pressure ulcer prevention - Monitor hemodynamics closely -Wright catheter in this critically ill patient with unstageable sacral decubitus ulcer -PEG site care - continue other care per attending / other consultants - discharge planning ongoing concurrently .... Re-evaluate in am & prn CONDITION: CRITICAL PROGNOSIS: GUARDED CODE STATUS: DNAR Called his family to discuss goals of care, wants us to continue to treat aggressively at this time. The high probability of a clinically significant, sudden or life-threatening deterioration of the [respiratory & cardiovascular] system(s) required my full and direct attention, intervention and personal management. The aggregate critical care time was [31] minutes without overlap. Time includes spent on; [x] Data Review and interpretation [x] Patient assessment and monitoring of vital signs [x] Documentation [x] Medication orders and management Subjective Date of service: 07/21/19 Principal diagnosis: Bilateral pneumonia, severe sepsis with septic shock, encephalopathy Interval history: The patient is a 69-year-old male with CVA, hypertension, dementia, schizophrenia, alcohol use disorder was admitted to the emergency room after being brought in by EMS with progressive shortness of breath and unresponsiveness. He was noted to have agonal breathing and a faint pulse requiring CPR. Patient was intubated and brought to the hospital. It seems, patient was on home hospice. Currently, remains critically ill, intubated, on mechanical ventilation. His COVID test resulted positive. Patient is seen today for: s/p cardiopulmonary arrest with ROSC;Ac hypoxemic Resp failure on MVS; Severe sepsis with Shock; Bilateral Pneumonia; POSITIVE coronavirus-19 infection. Seen and examined at bedside; 24hour events reviewed; nursing and respiratory care staff consulted; no adverse overnight events reported to me; resting in bed. No reported fevers. On MVS and tolerating it well; on fentanyl at 2mcg Tolerating tube feedings, no diarrhea, Mental status changes persist, will spontaneously open eyes No fevers,Current setting AC-VC 14/500/30%/PEEP 6 Objective Vital Signs - 12hr 07/28/19 07/28/19 07/28/19 00:00 00:01 00:31 Temperature 98.8 F Pulse Rate 101 H 117 H 116 H Pulse Rate [ 102 H From Monitor] Pulse Rate [ 101 H Right Dorsalis Pedis] Respiratory 18 18 15 Rate Blood Pressure 137/71 146/69 O2 Sat by Pulse 98 96 95 Oximetry 07/28/19 07/28/19 07/28/19 01:01 01:31 02:01 Temperature Pulse Rate 115 H 113 H 111 H Pulse Rate [ From Monitor] Pulse Rate [ Right Dorsalis Pedis] Respiratory 17 17 20 Rate Blood Pressure 132/70 140/68 135/69 O2 Sat by Pulse 96 96 96 Oximetry 07/28/19 07/28/19 07/28/19 02:31 03:01 03:31 Temperature Pulse Rate 109 H 108 H 110 H Pulse Rate [ From Monitor] Pulse Rate [ Right Dorsalis Pedis] Respiratory 19 17 16 Rate Blood Pressure 133/61 132/60 143/69 O2 Sat by Pulse 96 95 96 Oximetry 07/28/19 07/28/19 07/28/19 04:00 04:01 04:16 Temperature 98.2 F Pulse Rate 103 H 108 H 110 H Pulse Rate [ 102 H From Monitor] Pulse Rate [ 103 H Right Dorsalis Pedis] Respiratory 19 16 Rate Blood Pressure 138/68 136/68 O2 Sat by Pulse 98 95 95 Oximetry 07/28/19 07/28/19 07/28/19 04:31 05:01 05:31 Temperature Pulse Rate 107 H 104 H 103 H Pulse Rate [ From Monitor] Pulse Rate [ Right Dorsalis Pedis] Respiratory 16 16 17 Rate Blood Pressure 142/68 135/63 138/64 O2 Sat by Pulse 97 96 95 Oximetry 07/28/19 07/28/19 07/28/19 06:01 06:31 09:36 Temperature Pulse Rate 103 H 107 H 111 H Pulse Rate [ From Monitor] Pulse Rate [ Right Dorsalis Pedis] Respiratory 16 20 26 H Rate Blood Pressure 138/67 138/67 137/75 O2 Sat by Pulse 96 97 100 Oximetry Constitutional: appears uncomfortable, other (eelderly and chronically ill looking AAM, normocep[krystina;ic with mildly increased respiratory effort at rest) Eyes: non-icteric ENT: oropharynx moist, other (ETT 24 cm Pawan) Neck: supple, no lymphadenopathy, no JVD Effort: very labored Ascultation: Bilateral: diminished breath sounds, rhonchi Percussion: Bilateral: not dull Cardiovascular: regular rate and rhythm Gastrointestinal: normoactive bowel sounds, soft, non-tender, non-distended, other (+ PEG tube with mild TF leakage) Integumentary: decubitus ulcer Extremities: no cyanosis, no edema, pink and warm, pulses normal Neurologic: unable to assess Psychiatric: other (Unable to assess re: AMS) CBC and BMP: 07/28/19 10:13 07/28/19 10:13 ABG, PT/INR, D-dimer: ABG ABG pH 7.430 pH Units (7.350-7.450) 07/27/19 05:16 ABG pCO2 48.2 mm Hg 07/27/19 05:16 ABG pO2 63.4 mm Hg (80.0-90.0) L 07/27/19 05:16 ABG O2 Saturation 92.7 % (95.0-99.0) L 07/27/19 05:16 PT/INR, D-dimer PT 16.0 Sec. (12.2-14.9) H 07/03/19 22:20 INR 1.26 (0.87-1.13) H 07/03/19 22:20 D-Dimer 1142.18 ng/mlDDU (0-234) H 07/08/19 00:45 Abnormal lab findings: Abnormal Labs 07/03/19 07/03/19 07/03/19 19:57 21:10 21:13 WBC RBC Hgb Hct MCV MCH MCHC RDW Plt Count Lymph % (Auto) [place] % (Auto) Lymph # [place] # Baso # Seg Neutrophils % Seg Neuts % (Manual) Lymphocytes % (Manual) Monocytes % (Manual) Nucleated RBC % Seg Neutrophils # Seg Neutrophils # Man Lymphocytes # (Manual) Monocytes # (Manual) PT INR D-Dimer ABG pH 7.238 L ABG pO2 210.8 H ABG HCO3 15.4 L ABG O2 Saturation 99.2 H ABG Base Excess -11.1 L ABG Hemoglobin 8.0 L Oxyhemoglobin Sodium 124 L Potassium Chloride 92.9 L Carbon Dioxide 10 L BUN 23 H Creatinine 0.5 L Glucose 118 H POC Glucose Lactic Acid Calcium 7.0 L Magnesium Iron TIBC Ferritin AST 70 H ALT 88 H Lactate Dehydrogenase Troponin T 0.032 H C-Reactive Protein Total Protein 5.0 L Albumin 1.8 L Cholesterol 47 L LDL Cholesterol Direct 25 L HDL Cholesterol 20 L Urine WBC (Auto) 12.0 H Vancomycin Trough Coronavirus (PCR) Crossmatch 07/03/19 07/03/19 07/03/19 22:20 22:20 22:20 WBC 30.5 H RBC 2.96 L Hgb 7.7 L Hct 23.9 L MCV 81 L MCH 26 L MCHC RDW 18.6 H Plt Count 459 H Lymph % (Auto) [place] % (Auto) Lymph # [place] # Baso # Seg Neutrophils % Seg Neuts % (Manual) 93.0 H Lymphocytes % (Manual) 0.5 L Monocytes % (Manual) Nucleated RBC % Seg Neutrophils # Seg Neutrophils # Man 28.4 H Lymphocytes # (Manual) 0.2 L Monocytes # (Manual) PT 16.0 H INR 1.26 H D-Dimer ABG pH ABG pO2 ABG HCO3 ABG O2 Saturation ABG Base Excess ABG Hemoglobin Oxyhemoglobin Sodium Potassium Chloride Carbon Dioxide BUN Creatinine Glucose POC Glucose Lactic Acid 6.90 H* Calcium Magnesium Iron TIBC Ferritin AST ALT Lactate Dehydrogenase Troponin T C-Reactive Protein Total Protein Albumin Cholesterol LDL Cholesterol Direct HDL Cholesterol Urine WBC (Auto) Vancomycin Trough Coronavirus (PCR) Crossmatch 07/03/19 07/04/19 07/04/19 23:58 05:15 07:05 WBC 17.1 H RBC 3.22 L Hgb 8.3 L Hct 25.4 L MCV 79 L MCH 26 L MCHC RDW 18.6 H Plt Count Lymph % (Auto) [place] % (Auto) Lymph # [place] # Baso # Seg Neutrophils % Seg Neuts % (Manual) 74.0 H Lymphocytes % (Manual) 0 L Monocytes % (Manual) Nucleated RBC % Seg Neutrophils # Seg Neutrophils # Man 12.7 H Lymphocytes # (Manual) 0.0 L Monocytes # (Manual) PT INR D-Dimer ABG pH 7.310 L ABG pO2 73.2 L ABG HCO3 17.8 L ABG O2 Saturation 93.8 L ABG Base Excess -7.7 L ABG Hemoglobin 9.6 L Oxyhemoglobin 92.3 L Sodium Potassium Chloride Carbon Dioxide BUN Creatinine Glucose POC Glucose Lactic Acid 7.10 H* Calcium Magnesium Iron TIBC Ferritin AST ALT Lactate Dehydrogenase Troponin T C-Reactive Protein Total Protein Albumin Cholesterol LDL Cholesterol Direct HDL Cholesterol Urine WBC (Auto) Vancomycin Trough Coronavirus (PCR) Crossmatch 07/04/19 07/04/19 07/04/19 07:05 07:05 07:05 WBC RBC Hgb Hct MCV MCH MCHC RDW Plt Count Lymph % (Auto) [place] % (Auto) Lymph # [place] # Baso # Seg Neutrophils % Seg Neuts % (Manual) Lymphocytes % (Manual) Monocytes % (Manual) Nucleated RBC % Seg Neutrophils # Seg Neutrophils # Man Lymphocytes # (Manual) Monocytes # (Manual) PT INR D-Dimer ABG pH ABG pO2 ABG HCO3 ABG O2 Saturation ABG Base Excess ABG Hemoglobin Oxyhemoglobin Sodium 120 L Potassium 5.1 H Chloride 90.0 L Carbon Dioxide 14 L BUN 26 H Creatinine 0.5 L Glucose POC Glucose Lactic Acid 3.30 H* Calcium 8.0 L Magnesium Iron 9 L TIBC 97 L Ferritin AST 73 H ALT 91 H Lactate Dehydrogenase Troponin T C-Reactive Protein Total Protein 5.5 L Albumin 2.0 L Cholesterol LDL Cholesterol Direct HDL Cholesterol Urine WBC (Auto) Vancomycin Trough Coronavirus (PCR) Crossmatch 07/04/19 07/04/19 07/04/19 09:39 09:39 09:39 WBC RBC Hgb Hct MCV MCH MCHC RDW Plt Count Lymph % (Auto) [place] % (Auto) Lymph # [place] # Baso # Seg Neutrophils % Seg Neuts % (Manual) Lymphocytes % (Manual) Monocytes % (Manual) Nucleated RBC % Seg Neutrophils # Seg Neutrophils # Man Lymphocytes # (Manual) Monocytes # (Manual) PT INR D-Dimer 1419.14 H ABG pH ABG pO2 ABG HCO3 ABG O2 Saturation ABG Base Excess ABG Hemoglobin Oxyhemoglobin Sodium Potassium Chloride Carbon Dioxide BUN Creatinine Glucose POC Glucose Lactic Acid Calcium Magnesium Iron TIBC Ferritin 1719.0 H AST ALT Lactate Dehydrogenase 234 H Troponin T C-Reactive Protein 15.50 H Total Protein Albumin Cholesterol LDL Cholesterol Direct HDL Cholesterol Urine WBC (Auto) Vancomycin Trough Coronavirus (PCR) Crossmatch 07/04/19 07/04/19 07/04/19 10:09 18:08 18:28 WBC RBC Hgb Hct MCV MCH MCHC RDW Plt Count Lymph % (Auto) [place] % (Auto) Lymph # [place] # Baso # Seg Neutrophils % Seg Neuts % (Manual) Lymphocytes % (Manual) Monocytes % (Manual) Nucleated RBC % Seg Neutrophils # Seg Neutrophils # Man Lymphocytes # (Manual) Monocytes # (Manual) PT INR D-Dimer ABG pH ABG pO2 ABG HCO3 ABG O2 Saturation ABG Base Excess ABG Hemoglobin Oxyhemoglobin Sodium 117 L* Potassium 5.6 H Chloride 90.3 L Carbon Dioxide 16 L BUN 28 H Creatinine 0.5 L Glucose 58 L POC Glucose 65 L Lactic Acid Calcium 8.2 L Magnesium Iron TIBC Ferritin AST ALT Lactate Dehydrogenase Troponin T C-Reactive Protein Total Protein Albumin Cholesterol LDL Cholesterol Direct HDL Cholesterol Urine WBC (Auto) Vancomycin Trough Coronavirus (PCR) Positive A Crossmatch 07/04/19 07/04/19 07/04/19 23:45 Unknown Unknown WBC RBC Hgb Hct MCV MCH MCHC RDW Plt Count Lymph % (Auto) [place] % (Auto) Lymph # [place] # Baso # Seg Neutrophils % Seg Neuts % (Manual) Lymphocytes % (Manual) Monocytes % (Manual) Nucleated RBC % Seg Neutrophils # Seg Neutrophils # Man Lymphocytes # (Manual) Monocytes # (Manual) PT INR D-Dimer 759.77 H ABG pH ABG pO2 ABG HCO3 ABG O2 Saturation ABG Base Excess ABG Hemoglobin Oxyhemoglobin Sodium 122 L Potassium Chloride 93.0 L Carbon Dioxide 19 L BUN 27 H Creatinine 0.5 L Glucose POC Glucose Lactic Acid Calcium 8.3 L Magnesium Iron TIBC Ferritin 1301.0 H AST ALT Lactate Dehydrogenase Troponin T C-Reactive Protein Total Protein Albumin Cholesterol LDL Cholesterol Direct HDL Cholesterol Urine WBC (Auto) Vancomycin Trough Coronavirus (PCR) Crossmatch 07/04/19 07/05/19 07/05/19 Unknown 03:20 04:00 WBC RBC Hgb Hct MCV MCH MCHC RDW Plt Count Lymph % (Auto) [place] % (Auto) Lymph # [place] # Baso # Seg Neutrophils % Seg Neuts % (Manual) Lymphocytes % (Manual) Monocytes % (Manual) Nucleated RBC % Seg Neutrophils # Seg Neutrophils # Man Lymphocytes # (Manual) Monocytes # (Manual) PT INR D-Dimer ABG pH ABG pO2 60.6 L ABG HCO3 ABG O2 Saturation 93.5 L ABG Base Excess -2.4 L ABG Hemoglobin 6.9 L Oxyhemoglobin 92.0 L Sodium 125 L Potassium Chloride 92.6 L Carbon Dioxide 19 L BUN 24 H Creatinine 0.6 L Glucose POC Glucose Lactic Acid Calcium 8.2 L Magnesium 1.40 L Iron TIBC Ferritin AST ALT Lactate Dehydrogenase 242 H Troponin T C-Reactive Protein 16.70 H Total Protein Albumin Cholesterol LDL Cholesterol Direct HDL Cholesterol Urine WBC (Auto) Vancomycin Trough Coronavirus (PCR) Crossmatch 07/05/19 07/05/19 07/05/19 10:11 16:15 17:54 WBC 46.4 H* RBC 2.77 L Hgb 7.2 L Hct 21.9 L MCV 79 L MCH 26 L MCHC RDW 19.0 H Plt Count Lymph % (Auto) [place] % (Auto) Lymph # [place] # Baso # Seg Neutrophils % Seg Neuts % (Manual) 82.0 H Lymphocytes % (Manual) 1.0 L Monocytes % (Manual) Nucleated RBC % Seg Neutrophils # Seg Neutrophils # Man 38.0 H Lymphocytes # (Manual) 0.5 L Monocytes # (Manual) PT INR D-Dimer ABG pH ABG pO2 ABG HCO3 ABG O2 Saturation ABG Base Excess ABG Hemoglobin Oxyhemoglobin Sodium Potassium Chloride Carbon Dioxide BUN Creatinine Glucose POC Glucose 69 L Lactic Acid Calcium Magnesium Iron TIBC Ferritin AST ALT Lactate Dehydrogenase Troponin T C-Reactive Protein Total Protein Albumin Cholesterol LDL Cholesterol Direct HDL Cholesterol Urine WBC (Auto) Vancomycin Trough 23.2 H Coronavirus (PCR) Crossmatch 07/05/19 07/06/19 07/06/19 19:58 00:27 00:27 WBC RBC Hgb Hct MCV MCH MCHC RDW Plt Count Lymph % (Auto) [place] % (Auto) Lymph # [place] # Baso # Seg Neutrophils % Seg Neuts % (Manual) Lymphocytes % (Manual) Monocytes % (Manual) Nucleated RBC % Seg Neutrophils # Seg Neutrophils # Man Lymphocytes # (Manual) Monocytes # (Manual) PT INR D-Dimer 1333.22 H ABG pH ABG pO2 ABG HCO3 ABG O2 Saturation ABG Base Excess ABG Hemoglobin Oxyhemoglobin Sodium 127 L Potassium Chloride Carbon Dioxide BUN Creatinine Glucose POC Glucose Lactic Acid Calcium Magnesium Iron TIBC Ferritin 977.1 H AST ALT Lactate Dehydrogenase Troponin T C-Reactive Protein Total Protein Albumin Cholesterol LDL Cholesterol Direct HDL Cholesterol Urine WBC (Auto) Vancomycin Trough Coronavirus (PCR) Crossmatch 07/06/19 07/06/19 07/06/19 00:27 02:00 02:56 WBC RBC Hgb Hct MCV MCH MCHC RDW Plt Count Lymph % (Auto) [place] % (Auto) Lymph # [place] # Baso # Seg Neutrophils % Seg Neuts % (Manual) Lymphocytes % (Manual) Monocytes % (Manual) Nucleated RBC % Seg Neutrophils # Seg Neutrophils # Man Lymphocytes # (Manual) Monocytes # (Manual) PT INR D-Dimer ABG pH ABG pO2 70.3 L ABG HCO3 ABG O2 Saturation 94.8 L ABG Base Excess ABG Hemoglobin 8.0 L Oxyhemoglobin 93.2 L Sodium Potassium Chloride Carbon Dioxide BUN Creatinine Glucose POC Glucose 117 H Lactic Acid Calcium Magnesium Iron TIBC Ferritin AST ALT Lactate Dehydrogenase 236 H Troponin T C-Reactive Protein 22.90 H Total Protein Albumin Cholesterol LDL Cholesterol Direct HDL Cholesterol Urine WBC (Auto) Vancomycin Trough Coronavirus (PCR) Crossmatch 07/06/19 07/06/19 07/06/19 03:49 03:49 07:40 WBC 38.8 H RBC 2.51 L Hgb 6.7 L Hct 19.9 L* MCV 79 L MCH 27 L MCHC RDW 19.2 H Plt Count Lymph % (Auto) [place] % (Auto) Lymph # [place] # Baso # Seg Neutrophils % Seg Neuts % (Manual) 90.5 H Lymphocytes % (Manual) 1.0 L Monocytes % (Manual) Nucleated RBC % Seg Neutrophils # Seg Neutrophils # Man 35.1 H Lymphocytes # (Manual) 0.4 L Monocytes # (Manual) PT INR D-Dimer ABG pH ABG pO2 ABG HCO3 ABG O2 Saturation ABG Base Excess ABG Hemoglobin Oxyhemoglobin Sodium 131 L Potassium Chloride 96.9 L Carbon Dioxide 18 L BUN 23 H Creatinine 0.5 L Glucose POC Glucose Lactic Acid Calcium 8.0 L Magnesium Iron TIBC Ferritin AST ALT Lactate Dehydrogenase Troponin T C-Reactive Protein Total Protein Albumin Cholesterol LDL Cholesterol Direct HDL Cholesterol Urine WBC (Auto) Vancomycin Trough Coronavirus (PCR) Crossmatch See Detail 07/06/19 07/06/19 07/06/19 12:38 14:39 20:00 WBC RBC Hgb Hct MCV MCH MCHC RDW Plt Count Lymph % (Auto) [place] % (Auto) Lymph # [place] # Baso # Seg Neutrophils % Seg Neuts % (Manual) Lymphocytes % (Manual) Monocytes % (Manual) Nucleated RBC % Seg Neutrophils # Seg Neutrophils # Man Lymphocytes # (Manual) Monocytes # (Manual) PT INR D-Dimer ABG pH ABG pO2 ABG HCO3 ABG O2 Saturation ABG Base Excess ABG Hemoglobin Oxyhemoglobin Sodium Potassium Chloride Carbon Dioxide BUN Creatinine Glucose POC Glucose 112 H 111 H 140 H Lactic Acid Calcium Magnesium Iron TIBC Ferritin AST ALT Lactate Dehydrogenase Troponin T C-Reactive Protein Total Protein Albumin Cholesterol LDL Cholesterol Direct HDL Cholesterol Urine WBC (Auto) Vancomycin Trough Coronavirus (PCR) Crossmatch 07/06/19 07/06/19 07/07/19 22:43 22:56 02:20 WBC RBC Hgb 7.9 L Hct 23.1 L MCV MCH MCHC RDW Plt Count Lymph % (Auto) [place] % (Auto) Lymph # [place] # Baso # Seg Neutrophils % Seg Neuts % (Manual) Lymphocytes % (Manual) Monocytes % (Manual) Nucleated RBC % Seg Neutrophils # Seg Neutrophils # Man Lymphocytes # (Manual) Monocytes # (Manual) PT INR D-Dimer ABG pH ABG pO2 ABG HCO3 ABG O2 Saturation ABG Base Excess ABG Hemoglobin Oxyhemoglobin Sodium Potassium Chloride Carbon Dioxide BUN Creatinine Glucose POC Glucose 122 H 149 H Lactic Acid Calcium Magnesium Iron TIBC Ferritin AST ALT Lactate Dehydrogenase Troponin T C-Reactive Protein Total Protein Albumin Cholesterol LDL Cholesterol Direct HDL Cholesterol Urine WBC (Auto) Vancomycin Trough Coronavirus (PCR) Crossmatch 07/07/19 07/07/19 07/07/19 04:35 05:27 05:34 WBC 23.1 H RBC 3.00 L Hgb 8.1 L Hct 24.2 L MCV 81 L MCH 27 L MCHC RDW 20.6 H Plt Count Lymph % (Auto) [place] % (Auto) Lymph # [place] # Baso # Seg Neutrophils % Seg Neuts % (Manual) 90.0 H Lymphocytes % (Manual) 2.0 L Monocytes % (Manual) Nucleated RBC % Seg Neutrophils # Seg Neutrophils # Man 20.8 H Lymphocytes # (Manual) 0.5 L Monocytes # (Manual) PT INR D-Dimer ABG pH ABG pO2 65.8 L ABG HCO3 ABG O2 Saturation 92.2 L ABG Base Excess ABG Hemoglobin 8.3 L Oxyhemoglobin 90.6 L Sodium Potassium Chloride Carbon Dioxide BUN Creatinine Glucose POC Glucose 132 H Lactic Acid Calcium Magnesium Iron TIBC Ferritin AST ALT Lactate Dehydrogenase Troponin T C-Reactive Protein Total Protein Albumin Cholesterol LDL Cholesterol Direct HDL Cholesterol Urine WBC (Auto) Vancomycin Trough Coronavirus (PCR) Crossmatch 07/07/19 07/07/19 07/07/19 05:34 11:50 15:58 WBC RBC Hgb 8.1 L Hct 24.2 L MCV MCH MCHC RDW Plt Count Lymph % (Auto) [place] % (Auto) Lymph # [place] # Baso # Seg Neutrophils % Seg Neuts % (Manual) Lymphocytes % (Manual) Monocytes % (Manual) Nucleated RBC % Seg Neutrophils # Seg Neutrophils # Man Lymphocytes # (Manual) Monocytes # (Manual) PT INR D-Dimer ABG pH ABG pO2 ABG HCO3 ABG O2 Saturation ABG Base Excess ABG Hemoglobin Oxyhemoglobin Sodium 135 L Potassium 3.3 L Chloride Carbon Dioxide 20 L BUN 27 H Creatinine 0.6 L Glucose 121 H POC Glucose 123 H Lactic Acid Calcium 8.0 L Magnesium Iron TIBC Ferritin AST ALT Lactate Dehydrogenase Troponin T C-Reactive Protein Total Protein Albumin Cholesterol LDL Cholesterol Direct HDL Cholesterol Urine WBC (Auto) Vancomycin Trough Coronavirus (PCR) Crossmatch 07/07/19 07/07/19 07/07/19 17:42 22:00 23:53 WBC RBC Hgb 8.0 L Hct 23.4 L MCV MCH MCHC RDW Plt Count Lymph % (Auto) [place] % (Auto) Lymph # [place] # Baso # Seg Neutrophils % Seg Neuts % (Manual) Lymphocytes % (Manual) Monocytes % (Manual) Nucleated RBC % Seg Neutrophils # Seg Neutrophils # Man Lymphocytes # (Manual) Monocytes # (Manual) PT INR D-Dimer ABG pH ABG pO2 ABG HCO3 ABG O2 Saturation ABG Base Excess ABG Hemoglobin Oxyhemoglobin Sodium Potassium Chloride Carbon Dioxide BUN Creatinine Glucose POC Glucose 107 H 117 H Lactic Acid Calcium Magnesium Iron TIBC Ferritin AST ALT Lactate Dehydrogenase Troponin T C-Reactive Protein Total Protein Albumin Cholesterol LDL Cholesterol Direct HDL Cholesterol Urine WBC (Auto) Vancomycin Trough Coronavirus (PCR) Crossmatch 07/08/19 07/08/19 07/08/19 00:45 00:45 00:45 WBC RBC Hgb Hct MCV MCH MCHC RDW Plt Count Lymph % (Auto) [place] % (Auto) Lymph # [place] # Baso # Seg Neutrophils % Seg Neuts % (Manual) Lymphocytes % (Manual) Monocytes % (Manual) Nucleated RBC % Seg Neutrophils # Seg Neutrophils # Man Lymphocytes # (Manual) Monocytes # (Manual) PT INR D-Dimer 1142.18 H ABG pH ABG pO2 ABG HCO3 ABG O2 Saturation ABG Base Excess ABG Hemoglobin Oxyhemoglobin Sodium Potassium Chloride Carbon Dioxide BUN Creatinine Glucose POC Glucose Lactic Acid Calcium Magnesium Iron TIBC Ferritin 839.0 H AST ALT Lactate Dehydrogenase 253 H Troponin T C-Reactive Protein 18.90 H Total Protein Albumin Cholesterol LDL Cholesterol Direct HDL Cholesterol Urine WBC (Auto) Vancomycin Trough Coronavirus (PCR) Crossmatch 07/08/19 07/08/19 07/08/19 04:30 05:11 12:02 WBC RBC Hgb Hct MCV MCH MCHC RDW Plt Count Lymph % (Auto) [place] % (Auto) Lymph # [place] # Baso # Seg Neutrophils % Seg Neuts % (Manual) Lymphocytes % (Manual) Monocytes % (Manual) Nucleated RBC % Seg Neutrophils # Seg Neutrophils # Man Lymphocytes # (Manual) Monocytes # (Manual) PT INR D-Dimer ABG pH ABG pO2 66.0 L ABG HCO3 ABG O2 Saturation 92.3 L ABG Base Excess ABG Hemoglobin 7.7 L Oxyhemoglobin 90.7 L Sodium Potassium Chloride Carbon Dioxide BUN Creatinine Glucose POC Glucose 108 H 153 H Lactic Acid Calcium Magnesium Iron TIBC Ferritin AST ALT Lactate Dehydrogenase Troponin T C-Reactive Protein Total Protein Albumin Cholesterol LDL Cholesterol Direct HDL Cholesterol Urine WBC (Auto) Vancomycin Trough Coronavirus (PCR) Crossmatch 07/08/19 07/08/19 07/08/19 16:15 18:22 23:35 WBC RBC Hgb Hct MCV MCH MCHC RDW Plt Count Lymph % (Auto) [place] % (Auto) Lymph # [place] # Baso # Seg Neutrophils % Seg Neuts % (Manual) Lymphocytes % (Manual) Monocytes % (Manual) Nucleated RBC % Seg Neutrophils # Seg Neutrophils # Man Lymphocytes # (Manual) Monocytes # (Manual) PT INR D-Dimer ABG pH ABG pO2 ABG HCO3 ABG O2 Saturation ABG Base Excess ABG Hemoglobin Oxyhemoglobin Sodium 134 L Potassium 3.3 L Chloride Carbon Dioxide 21 L BUN 27 H Creatinine 0.6 L Glucose 146 H POC Glucose 134 H 133 H Lactic Acid Calcium Magnesium Iron TIBC Ferritin AST ALT Lactate Dehydrogenase Troponin T C-Reactive Protein Total Protein Albumin Cholesterol LDL Cholesterol Direct HDL Cholesterol Urine WBC (Auto) Vancomycin Trough Coronavirus (PCR) Crossmatch 07/09/19 07/09/19 07/09/19 04:30 04:30 05:00 WBC 18.9 H RBC 2.77 L Hgb 7.4 L Hct 22.8 L MCV 82 L MCH 27 L MCHC RDW 20.9 H Plt Count 130 L Lymph % (Auto) [place] % (Auto) Lymph # [place] # Baso # Seg Neutrophils % Seg Neuts % (Manual) 84.0 H Lymphocytes % (Manual) 0 L Monocytes % (Manual) Nucleated RBC % Seg Neutrophils # Seg Neutrophils # Man 15.9 H Lymphocytes # (Manual) 0.0 L Monocytes # (Manual) PT INR D-Dimer ABG pH ABG pO2 ABG HCO3 ABG O2 Saturation ABG Base Excess ABG Hemoglobin Oxyhemoglobin Sodium Potassium 3.1 L Chloride Carbon Dioxide BUN 26 H Creatinine 0.5 L Glucose 125 H POC Glucose 155 H Lactic Acid Calcium Magnesium Iron TIBC Ferritin AST ALT Lactate Dehydrogenase Troponin T C-Reactive Protein Total Protein Albumin Cholesterol LDL Cholesterol Direct HDL Cholesterol Urine WBC (Auto) Vancomycin Trough Coronavirus (PCR) Crossmatch 07/09/19 07/09/19 07/09/19 05:55 12:22 17:50 WBC RBC Hgb Hct MCV MCH MCHC RDW Plt Count Lymph % (Auto) [place] % (Auto) Lymph # [place] # Baso # Seg Neutrophils % Seg Neuts % (Manual) Lymphocytes % (Manual) Monocytes % (Manual) Nucleated RBC % Seg Neutrophils # Seg Neutrophils # Man Lymphocytes # (Manual) Monocytes # (Manual) PT INR D-Dimer ABG pH ABG pO2 62.8 L ABG HCO3 ABG O2 Saturation ABG Base Excess ABG Hemoglobin 6.1 L Oxyhemoglobin 93.9 L Sodium Potassium Chloride Carbon Dioxide BUN Creatinine Glucose POC Glucose 115 H 133 H Lactic Acid Calcium Magnesium Iron TIBC Ferritin AST ALT Lactate Dehydrogenase Troponin T C-Reactive Protein Total Protein Albumin Cholesterol LDL Cholesterol Direct HDL Cholesterol Urine WBC (Auto) Vancomycin Trough Coronavirus (PCR) Crossmatch 07/10/19 07/10/19 07/10/19 00:38 04:00 04:00 WBC RBC Hgb Hct MCV MCH MCHC RDW Plt Count Lymph % (Auto) [place] % (Auto) Lymph # [place] # Baso # Seg Neutrophils % Seg Neuts % (Manual) Lymphocytes % (Manual) Monocytes % (Manual) Nucleated RBC % Seg Neutrophils # Seg Neutrophils # Man Lymphocytes # (Manual) Monocytes # (Manual) PT INR D-Dimer ABG pH ABG pO2 ABG HCO3 ABG O2 Saturation ABG Base Excess ABG Hemoglobin Oxyhemoglobin Sodium Potassium Chloride 107.9 H Carbon Dioxide BUN 26 H Creatinine 0.4 L Glucose 137 H POC Glucose 122 H Lactic Acid Calcium Magnesium 1.50 L Iron TIBC Ferritin AST ALT Lactate Dehydrogenase 277 H Troponin T C-Reactive Protein 15.10 H Total Protein Albumin Cholesterol LDL Cholesterol Direct HDL Cholesterol Urine WBC (Auto) Vancomycin Trough Coronavirus (PCR) Crossmatch 07/10/19 07/10/19 07/10/19 04:07 05:21 17:25 WBC RBC Hgb Hct MCV MCH MCHC RDW Plt Count Lymph % (Auto) [place] % (Auto) Lymph # [place] # Baso # Seg Neutrophils % Seg Neuts % (Manual) Lymphocytes % (Manual) Monocytes % (Manual) Nucleated RBC % Seg Neutrophils # Seg Neutrophils # Man Lymphocytes # (Manual) Monocytes # (Manual) PT INR D-Dimer ABG pH ABG pO2 65.6 L ABG HCO3 26.3 H ABG O2 Saturation ABG Base Excess ABG Hemoglobin 6.7 L Oxyhemoglobin Sodium Potassium Chloride Carbon Dioxide BUN Creatinine Glucose POC Glucose 144 H 113 H Lactic Acid Calcium Magnesium Iron TIBC Ferritin AST ALT Lactate Dehydrogenase Troponin T C-Reactive Protein Total Protein Albumin Cholesterol LDL Cholesterol Direct HDL Cholesterol Urine WBC (Auto) Vancomycin Trough Coronavirus (PCR) Crossmatch 07/11/19 07/11/19 07/11/19 00:07 05:14 05:25 WBC RBC Hgb Hct MCV MCH MCHC RDW Plt Count Lymph % (Auto) [place] % (Auto) Lymph # [place] # Baso # Seg Neutrophils % Seg Neuts % (Manual) Lymphocytes % (Manual) Monocytes % (Manual) Nucleated RBC % Seg Neutrophils # Seg Neutrophils # Man Lymphocytes # (Manual) Monocytes # (Manual) PT INR D-Dimer ABG pH ABG pO2 ABG HCO3 ABG O2 Saturation ABG Base Excess ABG Hemoglobin 5.8 L Oxyhemoglobin Sodium Potassium Chloride 108.0 H Carbon Dioxide BUN 26 H Creatinine 0.4 L Glucose 110 H POC Glucose 121 H Lactic Acid Calcium Magnesium Iron TIBC Ferritin AST ALT Lactate Dehydrogenase Troponin T C-Reactive Protein Total Protein Albumin Cholesterol LDL Cholesterol Direct HDL Cholesterol Urine WBC (Auto) Vancomycin Trough Coronavirus (PCR) Crossmatch 07/11/19 07/11/19 07/11/19 12:27 18:00 23:42 WBC RBC Hgb Hct MCV MCH MCHC RDW Plt Count Lymph % (Auto) [place] % (Auto) Lymph # [place] # Baso # Seg Neutrophils % Seg Neuts % (Manual) Lymphocytes % (Manual) Monocytes % (Manual) Nucleated RBC % Seg Neutrophils # Seg Neutrophils # Man Lymphocytes # (Manual) Monocytes # (Manual) PT INR D-Dimer ABG pH ABG pO2 ABG HCO3 ABG O2 Saturation ABG Base Excess ABG Hemoglobin Oxyhemoglobin Sodium Potassium Chloride Carbon Dioxide BUN Creatinine Glucose POC Glucose 158 H 141 H 142 H Lactic Acid Calcium Magnesium Iron TIBC Ferritin AST ALT Lactate Dehydrogenase Troponin T C-Reactive Protein Total Protein Albumin Cholesterol LDL Cholesterol Direct HDL Cholesterol Urine WBC (Auto) Vancomycin Trough Coronavirus (PCR) Crossmatch 07/12/19 07/12/19 07/12/19 04:46 04:46 05:23 WBC 23.6 H RBC 2.51 L Hgb 6.7 L Hct 20.8 L MCV 83 L MCH 27 L MCHC RDW 20.3 H Plt Count Lymph % (Auto) [place] % (Auto) Lymph # [place] # Baso # Seg Neutrophils % Seg Neuts % (Manual) 94.0 H Lymphocytes % (Manual) 4.0 L Monocytes % (Manual) Nucleated RBC % Seg Neutrophils # Seg Neutrophils # Man 22.2 H Lymphocytes # (Manual) 0.9 L Monocytes # (Manual) PT INR D-Dimer ABG pH ABG pO2 ABG HCO3 ABG O2 Saturation ABG Base Excess ABG Hemoglobin Oxyhemoglobin Sodium Potassium Chloride 107.1 H Carbon Dioxide BUN 25 H Creatinine 0.4 L Glucose 122 H POC Glucose 118 H Lactic Acid Calcium Magnesium Iron TIBC Ferritin AST ALT Lactate Dehydrogenase Troponin T C-Reactive Protein Total Protein Albumin Cholesterol LDL Cholesterol Direct HDL Cholesterol Urine WBC (Auto) Vancomycin Trough Coronavirus (PCR) Crossmatch 07/12/19 07/12/19 07/12/19 08:49 11:36 18:15 WBC RBC Hgb Hct MCV MCH MCHC RDW Plt Count Lymph % (Auto) [place] % (Auto) Lymph # [place] # Baso # Seg Neutrophils % Seg Neuts % (Manual) Lymphocytes % (Manual) Monocytes % (Manual) Nucleated RBC % Seg Neutrophils # Seg Neutrophils # Man Lymphocytes # (Manual) Monocytes # (Manual) PT INR D-Dimer ABG pH ABG pO2 ABG HCO3 ABG O2 Saturation ABG Base Excess ABG Hemoglobin Oxyhemoglobin Sodium Potassium Chloride Carbon Dioxide BUN Creatinine Glucose POC Glucose 124 H 110 H Lactic Acid Calcium Magnesium Iron TIBC Ferritin AST ALT Lactate Dehydrogenase Troponin T C-Reactive Protein Total Protein Albumin Cholesterol LDL Cholesterol Direct HDL Cholesterol Urine WBC (Auto) Vancomycin Trough Coronavirus (PCR) Crossmatch See Detail 07/12/19 07/13/19 07/13/19 23:16 05:26 06:50 WBC 23.9 H RBC 2.58 L Hgb 6.9 L Hct 21.5 L MCV 83 L MCH 27 L MCHC RDW 19.0 H Plt Count Lymph % (Auto) [place] % (Auto) Lymph # [place] # Baso # Seg Neutrophils % Seg Neuts % (Manual) 96.0 H Lymphocytes % (Manual) 3.0 L Monocytes % (Manual) Nucleated RBC % Seg Neutrophils # Seg Neutrophils # Man 22.9 H Lymphocytes # (Manual) 0.7 L Monocytes # (Manual) PT INR D-Dimer ABG pH ABG pO2 ABG HCO3 ABG O2 Saturation ABG Base Excess ABG Hemoglobin Oxyhemoglobin Sodium Potassium Chloride Carbon Dioxide BUN Creatinine Glucose POC Glucose 108 H 126 H Lactic Acid Calcium Magnesium Iron TIBC Ferritin AST ALT Lactate Dehydrogenase Troponin T C-Reactive Protein Total Protein Albumin Cholesterol LDL Cholesterol Direct HDL Cholesterol Urine WBC (Auto) Vancomycin Trough Coronavirus (PCR) Crossmatch 07/13/19 07/13/19 07/13/19 06:50 12:38 18:05 WBC RBC Hgb Hct MCV MCH MCHC RDW Plt Count Lymph % (Auto) [place] % (Auto) Lymph # [place] # Baso # Seg Neutrophils % Seg Neuts % (Manual) Lymphocytes % (Manual) Monocytes % (Manual) Nucleated RBC % Seg Neutrophils # Seg Neutrophils # Man Lymphocytes # (Manual) Monocytes # (Manual) PT INR D-Dimer ABG pH ABG pO2 ABG HCO3 ABG O2 Saturation ABG Base Excess ABG Hemoglobin Oxyhemoglobin Sodium Potassium Chloride Carbon Dioxide BUN 33 H Creatinine 0.5 L Glucose 136 H POC Glucose 164 H 145 H Lactic Acid Calcium Magnesium Iron TIBC Ferritin AST ALT Lactate Dehydrogenase Troponin T C-Reactive Protein Total Protein Albumin Cholesterol LDL Cholesterol Direct HDL Cholesterol Urine WBC (Auto) Vancomycin Trough Coronavirus (PCR) Crossmatch 07/13/19 07/14/19 07/14/19 18:30 00:21 04:40 WBC 22.9 H RBC 2.45 L Hgb 6.6 L Hct 21.1 L MCV MCH 27 L MCHC 31 L RDW 19.2 H Plt Count Lymph % (Auto) [place] % (Auto) Lymph # [place] # Baso # Seg Neutrophils % Seg Neuts % (Manual) 91.0 H Lymphocytes % (Manual) 7.0 L Monocytes % (Manual) Nucleated RBC % Seg Neutrophils # Seg Neutrophils # Man 20.8 H Lymphocytes # (Manual) Monocytes # (Manual) PT INR D-Dimer ABG pH ABG pO2 58.1 L ABG HCO3 ABG O2 Saturation 88.7 L ABG Base Excess ABG Hemoglobin 7.8 L Oxyhemoglobin 86.8 L Sodium Potassium Chloride Carbon Dioxide BUN Creatinine Glucose POC Glucose 118 H Lactic Acid Calcium Magnesium Iron TIBC Ferritin AST ALT Lactate Dehydrogenase Troponin T C-Reactive Protein Total Protein Albumin Cholesterol LDL Cholesterol Direct HDL Cholesterol Urine WBC (Auto) Vancomycin Trough Coronavirus (PCR) Crossmatch 07/14/19 07/14/19 07/14/19 04:40 05:38 05:45 WBC RBC Hgb Hct MCV MCH MCHC RDW Plt Count Lymph % (Auto) [place] % (Auto) Lymph # [place] # Baso # Seg Neutrophils % Seg Neuts % (Manual) Lymphocytes % (Manual) Monocytes % (Manual) Nucleated RBC % Seg Neutrophils # Seg Neutrophils # Man Lymphocytes # (Manual) Monocytes # (Manual) PT INR D-Dimer ABG pH 7.230 L ABG pO2 72.1 L ABG HCO3 ABG O2 Saturation 89.3 L ABG Base Excess -2.7 L ABG Hemoglobin 6.7 L Oxyhemoglobin 87.7 L Sodium Potassium Chloride 107.4 H Carbon Dioxide BUN 45 H Creatinine Glucose 101 H POC Glucose 154 H Lactic Acid Calcium Magnesium Iron TIBC Ferritin AST ALT Lactate Dehydrogenase Troponin T C-Reactive Protein Total Protein Albumin Cholesterol LDL Cholesterol Direct HDL Cholesterol Urine WBC (Auto) Vancomycin Trough Coronavirus (PCR) Crossmatch 07/14/19 07/14/19 07/14/19 12:25 18:20 19:01 WBC 22.4 H RBC 2.70 L Hgb 7.5 L Hct 23.3 L MCV MCH MCHC RDW 19.5 H Plt Count Lymph % (Auto) [place] % (Auto) Lymph # [place] # Baso # Seg Neutrophils % Seg Neuts % (Manual) Lymphocytes % (Manual) Monocytes % (Manual) Nucleated RBC % Seg Neutrophils # Seg Neutrophils # Man Lymphocytes # (Manual) Monocytes # (Manual) PT INR D-Dimer ABG pH ABG pO2 ABG HCO3 ABG O2 Saturation ABG Base Excess ABG Hemoglobin Oxyhemoglobin Sodium Potassium Chloride Carbon Dioxide BUN Creatinine Glucose POC Glucose 136 H 131 H Lactic Acid Calcium Magnesium Iron TIBC Ferritin AST ALT Lactate Dehydrogenase Troponin T C-Reactive Protein Total Protein Albumin Cholesterol LDL Cholesterol Direct HDL Cholesterol Urine WBC (Auto) Vancomycin Trough Coronavirus (PCR) Crossmatch 07/15/19 07/15/19 07/15/19 00:17 04:35 05:18 WBC 20.6 H RBC 2.41 L Hgb 6.8 L Hct 20.7 L MCV MCH MCHC RDW 20.2 H Plt Count Lymph % (Auto) [place] % (Auto) Lymph # [place] # Baso # Seg Neutrophils % Seg Neuts % (Manual) 92.0 H Lymphocytes % (Manual) 5.0 L Monocytes % (Manual) Nucleated RBC % Seg Neutrophils # Seg Neutrophils # Man 19.0 H Lymphocytes # (Manual) 1.0 L Monocytes # (Manual) PT INR D-Dimer ABG pH 7.342 L ABG pO2 ABG HCO3 ABG O2 Saturation ABG Base Excess -3.1 L ABG Hemoglobin 7.2 L Oxyhemoglobin 94.9 L Sodium Potassium Chloride Carbon Dioxide BUN Creatinine Glucose POC Glucose 116 H Lactic Acid Calcium Magnesium Iron TIBC Ferritin AST ALT Lactate Dehydrogenase Troponin T C-Reactive Protein Total Protein Albumin Cholesterol LDL Cholesterol Direct HDL Cholesterol Urine WBC (Auto) Vancomycin Trough Coronavirus (PCR) Crossmatch 07/15/19 07/15/19 07/15/19 05:18 05:57 11:28 WBC RBC Hgb Hct MCV MCH MCHC RDW Plt Count Lymph % (Auto) [place] % (Auto) Lymph # [place] # Baso # Seg Neutrophils % Seg Neuts % (Manual) Lymphocytes % (Manual) Monocytes % (Manual) Nucleated RBC % Seg Neutrophils # Seg Neutrophils # Man Lymphocytes # (Manual) Monocytes # (Manual) PT INR D-Dimer ABG pH ABG pO2 ABG HCO3 ABG O2 Saturation ABG Base Excess ABG Hemoglobin Oxyhemoglobin Sodium Potassium Chloride Carbon Dioxide 20 L BUN 59 H Creatinine Glucose 140 H POC Glucose 139 H 117 H Lactic Acid Calcium Magnesium Iron TIBC Ferritin AST ALT Lactate Dehydrogenase Troponin T C-Reactive Protein Total Protein Albumin Cholesterol LDL Cholesterol Direct HDL Cholesterol Urine WBC (Auto) Vancomycin Trough Coronavirus (PCR) Crossmatch 07/15/19 07/16/19 07/16/19 18:13 00:06 03:43 WBC RBC Hgb Hct MCV MCH MCHC RDW Plt Count Lymph % (Auto) [place] % (Auto) Lymph # [place] # Baso # Seg Neutrophils % Seg Neuts % (Manual) Lymphocytes % (Manual) Monocytes % (Manual) Nucleated RBC % Seg Neutrophils # Seg Neutrophils # Man Lymphocytes # (Manual) Monocytes # (Manual) PT INR D-Dimer ABG pH 7.344 L ABG pO2 68.6 L ABG HCO3 ABG O2 Saturation ABG Base Excess -3.5 L ABG Hemoglobin 6.1 L Oxyhemoglobin 93.3 L Sodium Potassium Chloride Carbon Dioxide BUN Creatinine Glucose POC Glucose 114 H 119 H Lactic Acid Calcium Magnesium Iron TIBC Ferritin AST ALT Lactate Dehydrogenase Troponin T C-Reactive Protein Total Protein Albumin Cholesterol LDL Cholesterol Direct HDL Cholesterol Urine WBC (Auto) Vancomycin Trough Coronavirus (PCR) Crossmatch 07/16/19 07/16/19 07/16/19 04:41 04:41 12:09 WBC 19.6 H RBC 2.81 L Hgb 7.7 L Hct 24.0 L MCV MCH 27 L MCHC RDW 19.4 H Plt Count 514 H Lymph % (Auto) 6.7 L [place] % (Auto) Lymph # [place] # 1.0 H Baso # Seg Neutrophils % 87.0 H Seg Neuts % (Manual) Lymphocytes % (Manual) Monocytes % (Manual) Nucleated RBC % Seg Neutrophils # 17.0 H Seg Neutrophils # Man Lymphocytes # (Manual) Monocytes # (Manual) PT INR D-Dimer ABG pH ABG pO2 ABG HCO3 ABG O2 Saturation ABG Base Excess ABG Hemoglobin Oxyhemoglobin Sodium Potassium 5.9 H Chloride Carbon Dioxide 21 L BUN 73 H Creatinine 2.0 H Glucose POC Glucose 141 H Lactic Acid Calcium Magnesium Iron TIBC Ferritin AST ALT Lactate Dehydrogenase Troponin T C-Reactive Protein Total Protein Albumin Cholesterol LDL Cholesterol Direct HDL Cholesterol Urine WBC (Auto) Vancomycin Trough Coronavirus (PCR) Crossmatch 07/16/19 07/16/19 07/17/19 16:19 17:45 00:16 WBC RBC Hgb Hct MCV MCH MCHC RDW Plt Count Lymph % (Auto) [place] % (Auto) Lymph # [place] # Baso # Seg Neutrophils % Seg Neuts % (Manual) Lymphocytes % (Manual) Monocytes % (Manual) Nucleated RBC % Seg Neutrophils # Seg Neutrophils # Man Lymphocytes # (Manual) Monocytes # (Manual) PT INR D-Dimer ABG pH ABG pO2 ABG HCO3 ABG O2 Saturation ABG Base Excess ABG Hemoglobin Oxyhemoglobin Sodium Potassium 5.1 H Chloride Carbon Dioxide 20 L BUN 72 H Creatinine 1.7 H Glucose 128 H POC Glucose 181 H 164 H Lactic Acid Calcium Magnesium Iron TIBC Ferritin AST ALT Lactate Dehydrogenase Troponin T C-Reactive Protein Total Protein Albumin Cholesterol LDL Cholesterol Direct HDL Cholesterol Urine WBC (Auto) Vancomycin Trough Coronavirus (PCR) Crossmatch 07/17/19 07/17/19 07/17/19 04:20 04:39 04:39 WBC 16.1 H RBC 2.92 L Hgb 8.0 L Hct 25.5 L MCV MCH MCHC 31 L RDW 19.7 H Plt Count 564 H Lymph % (Auto) 3.6 L [place] % (Auto) 7.4 H Lymph # 0.6 L [place] # 1.2 H Baso # Seg Neutrophils % 87.5 H Seg Neuts % (Manual) Lymphocytes % (Manual) Monocytes % (Manual) Nucleated RBC % Seg Neutrophils # 14.1 H Seg Neutrophils # Man Lymphocytes # (Manual) Monocytes # (Manual) PT INR D-Dimer ABG pH 7.231 L ABG pO2 95.3 H ABG HCO3 ABG O2 Saturation ABG Base Excess -5.0 L ABG Hemoglobin 7.9 L Oxyhemoglobin 94.8 L Sodium Potassium Chloride 107.8 H Carbon Dioxide 21 L BUN 68 H Creatinine Glucose POC Glucose Lactic Acid Calcium Magnesium Iron TIBC Ferritin AST ALT Lactate Dehydrogenase Troponin T C-Reactive Protein Total Protein Albumin Cholesterol LDL Cholesterol Direct HDL Cholesterol Urine WBC (Auto) Vancomycin Trough Coronavirus (PCR) Crossmatch 07/17/19 07/17/19 07/17/19 05:28 12:11 18:48 WBC RBC Hgb Hct MCV MCH MCHC RDW Plt Count Lymph % (Auto) [place] % (Auto) Lymph # [place] # Baso # Seg Neutrophils % Seg Neuts % (Manual) Lymphocytes % (Manual) Monocytes % (Manual) Nucleated RBC % Seg Neutrophils # Seg Neutrophils # Man Lymphocytes # (Manual) Monocytes # (Manual) PT INR D-Dimer ABG pH ABG pO2 ABG HCO3 ABG O2 Saturation ABG Base Excess ABG Hemoglobin Oxyhemoglobin Sodium Potassium Chloride Carbon Dioxide BUN Creatinine Glucose POC Glucose 121 H 125 H 174 H Lactic Acid Calcium Magnesium Iron TIBC Ferritin AST ALT Lactate Dehydrogenase Troponin T C-Reactive Protein Total Protein Albumin Cholesterol LDL Cholesterol Direct HDL Cholesterol Urine WBC (Auto) Vancomycin Trough Coronavirus (PCR) Crossmatch 07/17/19 07/17/19 07/18/19 19:55 23:57 02:30 WBC RBC Hgb Hct MCV MCH MCHC RDW Plt Count Lymph % (Auto) [place] % (Auto) Lymph # [place] # Baso # Seg Neutrophils % Seg Neuts % (Manual) Lymphocytes % (Manual) Monocytes % (Manual) Nucleated RBC % Seg Neutrophils # Seg Neutrophils # Man Lymphocytes # (Manual) Monocytes # (Manual) PT INR D-Dimer ABG pH 7.344 L 7.294 L ABG pO2 78.5 L 119.2 H ABG HCO3 ABG O2 Saturation ABG Base Excess -3.3 L -2.6 L ABG Hemoglobin 8.6 L 8.1 L Oxyhemoglobin 94.8 L Sodium Potassium Chloride Carbon Dioxide BUN Creatinine Glucose POC Glucose 148 H Lactic Acid Calcium Magnesium Iron TIBC Ferritin AST ALT Lactate Dehydrogenase Troponin T C-Reactive Protein Total Protein Albumin Cholesterol LDL Cholesterol Direct HDL Cholesterol Urine WBC (Auto) Vancomycin Trough Coronavirus (PCR) Crossmatch 07/18/19 07/18/19 07/18/19 04:49 05:22 05:22 WBC 15.9 H RBC 3.00 L Hgb 8.1 L Hct 26.0 L MCV MCH 27 L MCHC 31 L RDW 19.4 H Plt Count 733 H Lymph % (Auto) 6.3 L [place] % (Auto) 7.4 H Lymph # 1.0 L [place] # 1.2 H Baso # 0.2 H Seg Neutrophils % 83.8 H Seg Neuts % (Manual) Lymphocytes % (Manual) Monocytes % (Manual) Nucleated RBC % Seg Neutrophils # 13.3 H Seg Neutrophils # Man Lymphocytes # (Manual) Monocytes # (Manual) PT INR D-Dimer ABG pH ABG pO2 ABG HCO3 ABG O2 Saturation ABG Base Excess ABG Hemoglobin Oxyhemoglobin Sodium Potassium Chloride 110.6 H Carbon Dioxide BUN 61 H Creatinine Glucose 109 H POC Glucose 116 H Lactic Acid Calcium Magnesium Iron TIBC Ferritin AST ALT Lactate Dehydrogenase Troponin T C-Reactive Protein Total Protein Albumin Cholesterol LDL Cholesterol Direct HDL Cholesterol Urine WBC (Auto) Vancomycin Trough Coronavirus (PCR) Crossmatch 07/18/19 07/18/19 07/18/19 12:23 18:06 22:20 WBC RBC Hgb Hct MCV MCH MCHC RDW Plt Count Lymph % (Auto) [place] % (Auto) Lymph # [place] # Baso # Seg Neutrophils % Seg Neuts % (Manual) Lymphocytes % (Manual) Monocytes % (Manual) Nucleated RBC % Seg Neutrophils # Seg Neutrophils # Man Lymphocytes # (Manual) Monocytes # (Manual) PT INR D-Dimer ABG pH 7.338 L ABG pO2 135.1 H ABG HCO3 ABG O2 Saturation ABG Base Excess ABG Hemoglobin 9.2 L Oxyhemoglobin Sodium Potassium Chloride Carbon Dioxide BUN Creatinine Glucose POC Glucose 114 H 113 H Lactic Acid Calcium Magnesium Iron TIBC Ferritin AST ALT Lactate Dehydrogenase Troponin T C-Reactive Protein Total Protein Albumin Cholesterol LDL Cholesterol Direct HDL Cholesterol Urine WBC (Auto) Vancomycin Trough Coronavirus (PCR) Crossmatch 07/18/19 07/19/19 07/19/19 23:33 03:45 05:18 WBC RBC Hgb Hct MCV MCH MCHC RDW Plt Count Lymph % (Auto) [place] % (Auto) Lymph # [place] # Baso # Seg Neutrophils % Seg Neuts % (Manual) Lymphocytes % (Manual) Monocytes % (Manual) Nucleated RBC % Seg Neutrophils # Seg Neutrophils # Man Lymphocytes # (Manual) Monocytes # (Manual) PT INR D-Dimer ABG pH 7.342 L ABG pO2 95.0 H ABG HCO3 ABG O2 Saturation ABG Base Excess ABG Hemoglobin 8.5 L Oxyhemoglobin Sodium Potassium Chloride Carbon Dioxide BUN Creatinine Glucose POC Glucose 125 H 111 H Lactic Acid Calcium Magnesium Iron TIBC Ferritin AST ALT Lactate Dehydrogenase Troponin T C-Reactive Protein Total Protein Albumin Cholesterol LDL Cholesterol Direct HDL Cholesterol Urine WBC (Auto) Vancomycin Trough Coronavirus (PCR) Crossmatch 07/19/19 07/19/19 07/19/19 08:45 08:45 11:47 WBC 15.9 H RBC 3.31 L Hgb 9.1 L Hct 28.4 L MCV MCH 27 L MCHC RDW 19.1 H Plt Count 858 H Lymph % (Auto) 4.9 L [place] % (Auto) 8.1 H Lymph # 0.8 L [place] # 1.3 H Baso # Seg Neutrophils % 85.5 H Seg Neuts % (Manual) Lymphocytes % (Manual) Monocytes % (Manual) Nucleated RBC % Seg Neutrophils # 13.6 H Seg Neutrophils # Man Lymphocytes # (Manual) Monocytes # (Manual) PT INR D-Dimer ABG pH ABG pO2 ABG HCO3 ABG O2 Saturation ABG Base Excess ABG Hemoglobin Oxyhemoglobin Sodium Potassium Chloride 111.6 H Carbon Dioxide BUN 50 H Creatinine 0.7 L Glucose 118 H POC Glucose 114 H Lactic Acid Calcium Magnesium Iron TIBC Ferritin AST ALT Lactate Dehydrogenase Troponin T C-Reactive Protein Total Protein Albumin Cholesterol LDL Cholesterol Direct HDL Cholesterol Urine WBC (Auto) Vancomycin Trough Coronavirus (PCR) Crossmatch 07/19/19 07/19/19 07/20/19 18:25 23:44 04:39 WBC RBC Hgb Hct MCV MCH MCHC RDW Plt Count Lymph % (Auto) [place] % (Auto) Lymph # [place] # Baso # Seg Neutrophils % Seg Neuts % (Manual) Lymphocytes % (Manual) Monocytes % (Manual) Nucleated RBC % Seg Neutrophils # Seg Neutrophils # Man Lymphocytes # (Manual) Monocytes # (Manual) PT INR D-Dimer ABG pH ABG pO2 ABG HCO3 ABG O2 Saturation ABG Base Excess ABG Hemoglobin Oxyhemoglobin Sodium Potassium Chloride 110.3 H Carbon Dioxide BUN 44 H Creatinine 0.6 L Glucose 120 H POC Glucose 115 H 117 H Lactic Acid Calcium Magnesium Iron TIBC Ferritin AST ALT Lactate Dehydrogenase Troponin T C-Reactive Protein Total Protein Albumin Cholesterol LDL Cholesterol Direct HDL Cholesterol Urine WBC (Auto) Vancomycin Trough Coronavirus (PCR) Crossmatch 07/20/19 07/21/19 07/21/19 05:30 11:59 17:40 WBC RBC Hgb Hct MCV MCH MCHC RDW Plt Count Lymph % (Auto) [place] % (Auto) Lymph # [place] # Baso # Seg Neutrophils % Seg Neuts % (Manual) Lymphocytes % (Manual) Monocytes % (Manual) Nucleated RBC % Seg Neutrophils # Seg Neutrophils # Man Lymphocytes # (Manual) Monocytes # (Manual) PT INR D-Dimer ABG pH ABG pO2 ABG HCO3 ABG O2 Saturation ABG Base Excess ABG Hemoglobin Oxyhemoglobin Sodium Potassium Chloride Carbon Dioxide BUN Creatinine Glucose POC Glucose 131 H 122 H 125 H Lactic Acid Calcium Magnesium Iron TIBC Ferritin AST ALT Lactate Dehydrogenase Troponin T C-Reactive Protein Total Protein Albumin Cholesterol LDL Cholesterol Direct HDL Cholesterol Urine WBC (Auto) Vancomycin Trough Coronavirus (PCR) Crossmatch 07/22/19 07/22/19 07/22/19 05:38 05:38 12:29 WBC 12.6 H RBC 3.19 L Hgb 8.9 L Hct 27.5 L MCV MCH MCHC RDW 18.9 H Plt Count 1101 H* Lymph % (Auto) [place] % (Auto) 12.2 H Lymph # [place] # 1.5 H Baso # Seg Neutrophils % 72.8 H Seg Neuts % (Manual) 76.0 H Lymphocytes % (Manual) 7.0 L Monocytes % (Manual) 14.0 H Nucleated RBC % 1.0 H Seg Neutrophils # 9.2 H Seg Neutrophils # Man 9.6 H Lymphocytes # (Manual) 0.9 L Monocytes # (Manual) 1.8 H PT INR D-Dimer ABG pH ABG pO2 ABG HCO3 ABG O2 Saturation ABG Base Excess ABG Hemoglobin Oxyhemoglobin Sodium Potassium 3.4 L Chloride Carbon Dioxide BUN 29 H Creatinine 0.5 L Glucose POC Glucose 116 H Lactic Acid Calcium Magnesium Iron TIBC Ferritin AST ALT Lactate Dehydrogenase Troponin T C-Reactive Protein Total Protein Albumin Cholesterol LDL Cholesterol Direct HDL Cholesterol Urine WBC (Auto) Vancomycin Trough Coronavirus (PCR) Crossmatch 07/22/19 07/22/19 07/23/19 18:20 23:51 04:52 WBC RBC Hgb Hct MCV MCH MCHC RDW Plt Count Lymph % (Auto) [place] % (Auto) Lymph # [place] # Baso # Seg Neutrophils % Seg Neuts % (Manual) Lymphocytes % (Manual) Monocytes % (Manual) Nucleated RBC % Seg Neutrophils # Seg Neutrophils # Man Lymphocytes # (Manual) Monocytes # (Manual) PT INR D-Dimer ABG pH ABG pO2 ABG HCO3 ABG O2 Saturation ABG Base Excess ABG Hemoglobin Oxyhemoglobin Sodium Potassium Chloride Carbon Dioxide BUN 24 H Creatinine 0.4 L Glucose POC Glucose 107 H 110 H Lactic Acid Calcium Magnesium Iron TIBC Ferritin AST ALT Lactate Dehydrogenase Troponin T C-Reactive Protein Total Protein Albumin Cholesterol LDL Cholesterol Direct HDL Cholesterol Urine WBC (Auto) Vancomycin Trough Coronavirus (PCR) Crossmatch 07/23/19 07/23/19 07/24/19 06:00 23:15 04:40 WBC RBC Hgb Hct MCV MCH MCHC RDW Plt Count Lymph % (Auto) [place] % (Auto) Lymph # [place] # Baso # Seg Neutrophils % Seg Neuts % (Manual) Lymphocytes % (Manual) Monocytes % (Manual) Nucleated RBC % Seg Neutrophils # Seg Neutrophils # Man Lymphocytes # (Manual) Monocytes # (Manual) PT INR D-Dimer ABG pH ABG pO2 73.5 L ABG HCO3 27.0 H 28.5 H ABG O2 Saturation 94.5 L ABG Base Excess ABG Hemoglobin 9.4 L 8.9 L Oxyhemoglobin 94.0 L 92.7 L Sodium Potassium Chloride Carbon Dioxide BUN Creatinine Glucose POC Glucose 117 H Lactic Acid Calcium Magnesium Iron TIBC Ferritin AST ALT Lactate Dehydrogenase Troponin T C-Reactive Protein Total Protein Albumin Cholesterol LDL Cholesterol Direct HDL Cholesterol Urine WBC (Auto) Vancomycin Trough Coronavirus (PCR) Crossmatch 07/24/19 07/24/19 07/25/19 05:25 12:06 00:16 WBC RBC Hgb Hct MCV MCH MCHC RDW Plt Count Lymph % (Auto) [place] % (Auto) Lymph # [place] # Baso # Seg Neutrophils % Seg Neuts % (Manual) Lymphocytes % (Manual) Monocytes % (Manual) Nucleated RBC % Seg Neutrophils # Seg Neutrophils # Man Lymphocytes # (Manual) Monocytes # (Manual) PT INR D-Dimer ABG pH ABG pO2 ABG HCO3 ABG O2 Saturation ABG Base Excess ABG Hemoglobin Oxyhemoglobin Sodium Potassium Chloride Carbon Dioxide BUN Creatinine Glucose POC Glucose 114 H 108 H 106 H Lactic Acid Calcium Magnesium Iron TIBC Ferritin AST ALT Lactate Dehydrogenase Troponin T C-Reactive Protein Total Protein Albumin Cholesterol LDL Cholesterol Direct HDL Cholesterol Urine WBC (Auto) Vancomycin Trough Coronavirus (PCR) Crossmatch 07/25/19 07/25/19 07/25/19 05:14 05:14 05:17 WBC 17.8 H RBC 3.32 L Hgb 9.2 L Hct 28.6 L MCV MCH MCHC RDW 19.9 H Plt Count 994 H Lymph % (Auto) [place] % (Auto) Lymph # [place] # Baso # Seg Neutrophils % Seg Neuts % (Manual) 82.0 H Lymphocytes % (Manual) 5.0 L Monocytes % (Manual) Nucleated RBC % Seg Neutrophils # Seg Neutrophils # Man 14.6 H Lymphocytes # (Manual) 0.9 L Monocytes # (Manual) 1.2 H PT INR D-Dimer ABG pH ABG pO2 ABG HCO3 ABG O2 Saturation ABG Base Excess ABG Hemoglobin Oxyhemoglobin Sodium Potassium Chloride Carbon Dioxide BUN Creatinine 0.4 L Glucose 110 H POC Glucose 107 H Lactic Acid Calcium Magnesium Iron TIBC Ferritin AST ALT Lactate Dehydrogenase Troponin T C-Reactive Protein Total Protein Albumin Cholesterol LDL Cholesterol Direct HDL Cholesterol Urine WBC (Auto) Vancomycin Trough Coronavirus (PCR) Crossmatch 07/25/19 07/25/19 07/26/19 11:55 23:49 06:01 WBC RBC Hgb Hct MCV MCH MCHC RDW Plt Count Lymph % (Auto) [place] % (Auto) Lymph # [place] # Baso # Seg Neutrophils % Seg Neuts % (Manual) Lymphocytes % (Manual) Monocytes % (Manual) Nucleated RBC % Seg Neutrophils # Seg Neutrophils # Man Lymphocytes # (Manual) Monocytes # (Manual) PT INR D-Dimer ABG pH ABG pO2 ABG HCO3 ABG O2 Saturation ABG Base Excess ABG Hemoglobin Oxyhemoglobin Sodium Potassium Chloride Carbon Dioxide BUN Creatinine Glucose POC Glucose 123 H 118 H 106 H Lactic Acid Calcium Magnesium Iron TIBC Ferritin AST ALT Lactate Dehydrogenase Troponin T C-Reactive Protein Total Protein Albumin Cholesterol LDL Cholesterol Direct HDL Cholesterol Urine WBC (Auto) Vancomycin Trough Coronavirus (PCR) Crossmatch [id number] 07/27/19 17:02 00:28 05:16 WBC RBC Hgb Hct MCV MCH MCHC RDW Plt Count Lymph % (Auto) [place] % (Auto) Lymph # [place] # Baso # Seg Neutrophils % Seg Neuts % (Manual) Lymphocytes % (Manual) Monocytes % (Manual) Nucleated RBC % Seg Neutrophils # Seg Neutrophils # Man Lymphocytes # (Manual) Monocytes # (Manual) PT INR D-Dimer ABG pH ABG pO2 63.4 L ABG HCO3 31.3 H ABG O2 Saturation 92.7 L ABG Base Excess 6.3 H ABG Hemoglobin 7.6 L Oxyhemoglobin 90.9 L Sodium Potassium Chloride Carbon Dioxide BUN Creatinine Glucose POC Glucose 116 H 158 H Lactic Acid Calcium Magnesium Iron TIBC Ferritin AST ALT Lactate Dehydrogenase Troponin T C-Reactive Protein Total Protein Albumin Cholesterol LDL Cholesterol Direct HDL Cholesterol Urine WBC (Auto) Vancomycin Trough Coronavirus (PCR) Crossmatch 07/28/19 07/28/19 10:13 10:13 WBC 18.5 H RBC 3.20 L Hgb 8.8 L Hct 26.8 L MCV MCH 27 L MCHC RDW 19.9 H Plt Count 730 H Lymph % (Auto) [place] % (Auto) Lymph # [place] # Baso # Seg Neutrophils % Seg Neuts % (Manual) Lymphocytes % (Manual) Monocytes % (Manual) Nucleated RBC % Seg Neutrophils # Seg Neutrophils # Man Lymphocytes # (Manual) Monocytes # (Manual) PT INR D-Dimer ABG pH ABG pO2 ABG HCO3 ABG O2 Saturation ABG Base Excess ABG Hemoglobin Oxyhemoglobin Sodium Potassium 3.2 L Chloride 97.5 L Carbon Dioxide 31 H BUN Creatinine 0.5 L Glucose POC Glucose Lactic Acid Calcium Magnesium Iron TIBC Ferritin AST ALT Lactate Dehydrogenase Troponin T C-Reactive Protein Total Protein Albumin Cholesterol LDL Cholesterol Direct HDL Cholesterol Urine WBC (Auto) Vancomycin Trough Coronavirus (PCR) Crossmatch Allied health notes reviewed: nursing
[2019-07-29] MEDS: fentaNYL DRIP Premix 2,000 MCG/100 ML BAG IV SCH (05:32)
[2019-07-29] MEDS: INSULIN LISPRO 100 UNIT/ML SUB-Q SCH ×4 (06:05→17:47)
[2019-07-29] MEDS: METOPROLOL TARTRATE 5 MG/5 ML INJ IV PRN (07:30)
--- NOTE | 2019-07-29 08:11 | Progress Note ---
Assessment and Plan Assessment and plan: 69-year-old male patient with PMH of CVA with RHP, HTN, DM2, SCZ, Dementia, Alcohol use D/o, Seizure D/O, presents to the emergency department via EMS from home with progressive SOB and impending espiratory failure with an unresponsive . PT was intubated was admitted through emergency room to ICU treated for sepsis, b/l PNA, acute respiratory failure received antibiotics. Patient was tested positive for COVID19. Evaluated by ID , received antibiotics Plaquenil, and inflammatory markers were checked and followed. Patient was hypotensive requiring Levophed, continues to be hypotensive currently on Levophed, unable to wean remains intubated on ventilatory support, critically ill, DNR status howev er family wants full treatment. --COVid-19 infection with pneumonia with severe sepsis Received Plaquenil and cefepime, monitor off antibiotics ID following --Septic shock: On Levophed Persistent hypotension, titrate to systolic blood pressure more than 100 -- Acute respiratory Failure with Hypoxia Due to bilateral PNA with COVID 19 infection. On ventilatory support, unable to wean Pulmonary critical following --COPD with exacerbation Likely due to COVID-19 pneumonia Continue scheduled nebs --Anemia, Microcytic persistent s/p total 3 unit of PRBC, today Hb today 9.1 --Pressure Ulcers: POA buttocks, right lateral foot area wound and supportive care --Hyponatremia, resolved --DM type 2: Accu-Chek SCC tube feeding, insulin as needed --h/o HTN Essential, now hypotensive On Levophed --Seizure D/o/CVA/immobility/BIpolar D/o/SCZ Seizure precautions, antiepileptic medications --Severe PCM, TF supportive care, dietary following patient is DNR- Called and verified information Very poor prognosis, Recommend hospice 07/04: COVID +ve, start on plaquinil, called no answer 07/05: transfuse one unit PRBC, Hb dropped to ~6, called and updated 07/06; H&H stable, serum chemistry improved. On mechanical ventilation with high inflammatory markers. Continue Plaquenil and empiric antibiotics. ID following, prognosis remains guarded and extremely poor. 07/07: On mechanical ventilation with high inflammatory markers. Continue Plaquenil and empiric antibiotics. ID following, prognosis remains guarded and extremely poor. 07/08: Called today and verified the CODE STATUS. Patient remains DNR. He is still intubated, with poor prognosis. Continue to follow inflammatory markers. 07/09 wean off from vent as tolerated, completed empiric antibiotic and Plaqu enil 07/10 wean off from vent as tolerated. poor prognosis 07/11 hb 6.7 today, transfuse one PRBC. wean off from vent as tolerated. poor prognosis 07/12 remains critically on vent. Hb 6.9 07/13 Hb dropped to 6.6, transfuse 1 unit of PRBC, remains on vent critically ill Hypotensive, fluid bolus, if no improvement start Levophed 07/14; remains anemic with hemoglobin of 6.8, received total 3 units of PRBC Additional 1 unit of PRBC today, stool for occult blood to rule out GI causes Started back on Levophed due to hypotension 07/15; patient remains critically ill, hypotensive on Levophed 07/16: Today remains intubated on vent, persistent hypotension on Levophed 07/17; clinically no change, pressor dependent[on Levophed] DNR status 07/18: Patient remains hypotensive requiring Levophed, intubated on vent Unable to wean, critically ill. DNR 07/20/2019 Patient remains hypotensive requiring Levophed, intubated on vent. Patient currently with AC mode ventilation, rate 20, tidal volume 500, FiO2 40% and PEEP 6. Patient is a poor prognosis and apparently was on hospice recently. 07/21/2019. Patient with PEG tube that was clogged yesterday. surgery evaluated the patient and noted Very long PEG tubing with thick material inside. The entire tube was stripped and a large amount of formed tube feed was expressed. The tube was then flushed with sprite and flushed easily. Tube clamped. Patient currently with AC mode ventilation, rate 20, tidal volume 500, FiO2 40% and PEEP 6. Patient is a poor prognosis and apparently was on hospice recently. 07/22/2019. Patient currently with AC mode ventilation, rate 20, tidal volume 500, FiO2 30% and PEEP 6. Patient on sedation with fentanyl drip. Continue Levophed to maintain MAP greater than 65. Patient is a poor prognosis and apparently was on hospice recently. 07/23/2019. Patient currently with AC mode ventilation, rate 20, tidal volume 500, FiO2 30% and PEEP 6. Patient on sedation with fentanyl drip. Continue Levophed to maintain MAP greater than 65. Patient is a poor prognosis and apparently was on hospice recently. 07/24/2019 Patient with Covid-19 infection with pneumonia, acute respiratory failure, intubated on ventilator. No more fever. Continue current management. 07/25/2019 Patient with Covid-19 infection with pneumonia, acute respiratory fail ure, intubated on ventilator. fever is now resolved. Sedated with propofol 07/26/2019 Patient with covid-19 infection. Still intubated, on vent. 07/27/2019 Patient with Covid-19. he is still critically ill. patient has DNR order. 07/28/2019 Patient with Covid-19 infection. Will repeat labs today. Surgeon consulted for tracheostomy. 07/29/2019 Patient with Covid-19. hypokalemia yesterday, replaced. Will recheck labs in am. The high probability of a clinically significant, sudden or life threatening deterioration of the [respiratory, CVS, LITERACY CONSULTANT] system(s) required my full and direct attention, i ntervention and personal management. The aggregate critical care time was [32] minutes. This time is in addition to time spent performing reported procedures but includes the following: [x] Data Review and interpretation [x] Patient assessment and monitoring of vital signs [x] Documentation [x] Medication orders and management History Interval history: Patient with Covid-19 infection Still intubated fever ofg 100.0 F this morning Hospitalist Physical - Physical exam Narrative exam: GEN: Not in acute distress, intubated,obese HEENT: Normocephalic, atraumatic, Neck: supple, No JVD Lungs: Bilateral crackles, heart;S1 and S2 reg, no murmurs, rubs or gallop Abd:soft, non tender, non distended, normal bowel sounds,PEG tube Ext: No edema, no clubbing, no cyanosis, Neuro: Intubated, on ventilator,sedated - Constitutional Vitals: Temp Pulse Resp BP Pulse Ox 100 F H 131 H 21 172/84 95 07/29/19 03:57 07/29/19 07:30 07/29/19 06:00 07/29/19 07:30 07/29/19 06:00 General appearance: Present: no acute distress, well-nourished, other (Orally intubated on vent) Results - Labs CBC & Chem 7: 07/28/19 10:13 07/28/19 10:13 Labs: Laboratory Last Values WBC 18.5 K/mm3 (4.5-11.0) H 07/28/19 10:13 RBC 3.20 M/mm3 (3.65-5.03) L 07/28/19 10:13 Hgb 8.8 gm/dl (11.8-15.2) L 07/28/19 10:13 Hct 26.8 % (35.5-45.6) L 07/28/19 10:13 MCV 84 fl (84-94) 07/28/19 10:13 MCH 27 pg (28-32) L 07/28/19 10:13 MCHC 33 % (32-34) 07/28/19 10:13 RDW 19.9 % (13.2-15.2) H 07/28/19 10:13 Plt Count 730 K/mm3 (140-440) H 07/28/19 10:13 Lymph % (Auto) 4.9 % (13.4-35.0) L 07/19/19 08:45 [place] % (Auto) 12.2 % (0.0-7.3) H 07/22/19 05:38 Eos % (Auto) 1.0 % (0.0-4.3) 07/19/19 08:45 Baso % (Auto) 0.5 % (0.0-1.8) 07/19/19 08:45 Lymph # 0.8 K/mm3 (1.2-5.4) L 07/19/19 08:45 [place] # 1.5 K/mm3 (0.0-0.8) H 07/22/19 05:38 Eos # 0.2 K/mm3 (0.0-0.4) 07/19/19 08:45 Baso # 0.1 K/mm3 (0.0-0.1) 07/19/19 08:45 Add Manual Diff Complete 07/25/19 05:14 Total Counted 100 07/25/19 05:14 Seg Neutrophils % 72.8 % (40.0-70.0) H 07/22/19 05:38 Seg Neuts % (Manual) 82.0 % (40.0-70.0) H 07/25/19 05:14 Band Neutrophils % 3.0 % 07/25/19 05:14 Lymphocytes % (Manual) 5.0 % (13.4-35.0) L 07/25/19 05:14 Reactive Lymphs % (Man) 0 % 07/25/19 05:14 Monocytes % (Manual) 7.0 % (0.0-7.3) 07/25/19 05:14 Eosinophils % (Manual) 2.0 % (0.0-4.3) 07/25/19 05:14 Basophils % (Manual) 0 % (0.0-1.8) 07/25/19 05:14 Metamyelocytes % 1.0 % 07/25/19 05:14 Myelocytes % 0 % 07/25/19 05:14 Promyelocytes % 0 % 07/25/19 05:14 Blast Cells % 0 % 07/25/19 05:14 Nucleated RBC % Not Reportable 07/25/19 05:14 Seg Neutrophils # 9.2 K/mm3 (1.8-7.7) H 07/22/19 05:38 Seg Neutrophils # Man 14.6 K/mm3 (1.8-7.7) H 07/25/19 05:14 Band Neutrophils # 0.5 K/mm3 07/25/19 05:14 Lymphocytes # (Manual) 0.9 K/mm3 (1.2-5.4) L 07/25/19 05:14 Abs React Lymphs (Man) 0.0 K/mm3 07/25/19 05:14 Monocytes # (Manual) 1.2 K/mm3 (0.0-0.8) H 07/25/19 05:14 Eosinophils # (Manual) 0.4 K/mm3 (0.0-0.4) 07/25/19 05:14 Basophils # (Manual) 0.0 K/mm3 (0.0-0.1) 07/25/19 05:14 Metamyelocytes # 0.2 K/mm3 07/25/19 05:14 Myelocytes # 0.0 K/mm3 07/25/19 05:14 Promyelocytes # 0.0 K/mm3 07/25/19 05:14 Blast Cells # 0.0 K/mm3 07/25/19 05:14 WBC Morphology Not Reportable 07/25/19 05:14 Hypersegmented Neuts Not Reportable 07/25/19 05:14 Hyposegmented Neuts Not Reportable 07/25/19 05:14 Hypogranular Neuts Not Reportable 07/25/19 05:14 Smudge Cells Not Reportable 07/25/19 05:14 Toxic Granulation Not Reportable 07/25/19 05:14 Toxic Vacuolation Not Reportable 07/25/19 05:14 Dohle Bodies Not Reportable 07/25/19 05:14 Pelger-Huet Anomaly Not Reportable 07/25/19 05:14 Mendy Rods Not Reportable 07/25/19 05:14 Platelet Estimate Consistent w auto 07/25/19 05:14 Clumped Platelets Not Reportable 07/25/19 05:14 Plt Clumps, EDTA Not Reportable 07/25/19 05:14 Large Platelets Not Reportable 07/25/19 05:14 Giant Platelets Not Reportable 07/25/19 05:14 Platelet Satelliting Not Reportable 07/25/19 05:14 Plt Morphology Comment Not Reportable 07/25/19 05:14 RBC Morphology Not Reportable 07/25/19 05:14 Dimorphic RBCs Not Reportable 07/25/19 05:14 Polychromasia Rare 07/25/19 05:14 Hypochromasia Rare 07/25/19 05:14 Poikilocytosis Not Reportable 07/25/19 05:14 Anisocytosis Few 07/25/19 05:14 Microcytosis Not Reportable 07/25/19 05:14 Macrocytosis Not Reportable 07/25/19 05:14 Spherocytes Not Reportable 07/25/19 05:14 Pappenheimer Bodies Not Reportable 07/25/19 05:14 Sickle Cells Not Reportable 07/25/19 05:14 Target Cells Not Reportable 07/25/19 05:14 Tear Drop Cells Not Reportable 07/25/19 05:14 Ovalocytes Not Reportable 07/25/19 05:14 Helmet Cells Not Reportable 07/25/19 05:14 Altman-[place]neola Bodies Not Reportable 07/25/19 05:14 [place] Rings Not Reportable 07/25/19 05:14 [place] Cells Not Reportable 07/25/19 05:14 Bite Cells Not Reportable 07/25/19 05:14 Crenated Cell Not Reportable 07/25/19 05:14 Elliptocytes Rare 07/25/19 05:14 Acanthocytes (Spur) Not Reportable 07/25/19 05:14 Rouleaux Not Reportable 07/25/19 05:14 Hemoglobin C Crystals Not Reportable 07/25/19 05:14 Schistocytes Not Reportable 07/25/19 05:14 Malaria parasites Not Reportable 07/25/19 05:14 Jeevan Bodies Not Reportable 07/25/19 05:14 Hem Pathologist Commnt No 07/25/19 05:14 PT 16.0 Sec. (12.2-14.9) H 07/03/19 22:20 INR 1.26 (0.87-1.13) H 07/03/19 22:20 D-Dimer 1142.18 ng/mlDDU (0-234) H 07/08/19 00:45 ABG pH 7.430 pH Units (7.350-7.450) 07/27/19 05:16 ABG pCO2 48.2 mm Hg 07/27/19 05:16 ABG pO2 63.4 mm Hg (80.0-90.0) L 07/27/19 05:16 ABG HCO3 31.3 mmol/L (20.0-26.0) H 07/27/19 05:16 ABG O2 Saturation 92.7 % (95.0-99.0) L 07/27/19 05:16 ABG O2 Content 9.8 (0.0-44) 07/27/19 05:16 ABG Base Excess 6.3 mmol/L (-2.0-3.0) H 07/27/19 05:16 ABG Hemoglobin 7.6 gm/dl (14.0-18.0) L 07/27/19 05:16 ABG Carboxyhemoglobin 1.6 % (0.0-5.0) 07/27/19 05:16 ABG Methemoglobin 0.4 % (0.0-1.5) 07/27/19 05:16 Oxyhemoglobin 90.9 % (95.0-99.0) L 07/27/19 05:16 FiO2 25 % 07/27/19 05:16 Sodium 137 mmol/L (137-145) 07/28/19 10:13 Potassium 3.2 mmol/L (3.6-5.0) L 07/28/19 10:13 Chloride 97.5 mmol/L (98-107) L 07/28/19 10:13 Carbon Dioxide 31 mmol/L (22-30) H 07/28/19 10:13 Anion Gap 12 mmol/L 07/28/19 10:13 BUN 13 mg/dL (9-20) 07/28/19 10:13 Creatinine 0.5 mg/dL (0.8-1.5) L 07/28/19 10:13 Estimated GFR > 60 ml/min 07/28/19 10:13 BUN/Creatinine Ratio 26 % 07/28/19 10:13 Glucose 83 mg/dL (75-100) 07/28/19 10:13 POC Glucose 120 (70-105) H 07/28/19 23:54 Osmolality 268 Mosm/kg 07/05/19 04:00 Lactic Acid 3.30 mmol/L (0.7-2.0) H* 07/04/19 07:05 Uric Acid 7.2 mg/dL (3.5-7.6) 07/05/19 04:00 Calcium 9.0 mg/dL (8.4-10.2) 07/28/19 10:13 Phosphorus 3.60 mg/dL (2.5-4.5) 07/05/19 04:00 Magnesium 1.80 mg/dL (1.7-2.3) 07/11/19 05:14 Iron 9 ug/dL (49-181) L 07/04/19 07:05 TIBC 97 mcg/dL (250-450) L 07/04/19 07:05 Ferritin 839.0 ng/mL (13.0-400.0) H 07/08/19 00:45 Total Bilirubin 0.20 mg/dL (0.1-1.2) 07/04/19 07:05 AST 73 units/L (5-40) H 07/04/19 07:05 ALT 91 units/L (7-56) H 07/04/19 07:05 Alkaline Phosphatase 114 units/L (35-129) 07/04/19 07:05 Ammonia 35.0 umol/L (25-60) 07/03/19 23:58 Lactate Dehydrogenase 277 units/L (91-180) H 07/10/19 04:00 Troponin T 0.013 ng/mL (0.00-0.029) 07/04/19 07:05 C-Reactive Protein 15.10 mg/dL (0.00-1.30) H 07/10/19 04:00 Total Protein 5.5 g/dL (6.3-8.2) L 07/04/19 07:05 Albumin 2.0 g/dL (3.9-5) L 07/04/19 07:05 Albumin/Globulin Ratio 0.6 % 07/04/19 07:05 Triglycerides 33 mg/dL (2-149) 07/03/19 19:57 Cholesterol 47 mg/dL (50-199) L 07/03/19 19:57 LDL Cholesterol Direct 25 mg/dL (50-130) L 07/03/19 19:57 HDL Cholesterol 20 mg/dL (40-59) L 07/03/19 19:57 Cholesterol/HDL Ratio 2.35 % 07/03/19 19:57 Procalcitonin 0.17 ng/mL (<0.15) 07/26/19 04:48 TSH 2.170 mlU/mL (0.270-4.200) 07/03/19 22:20 Total Cortisol 28.0 mcg/dL () 07/05/19 10:11 Urine Color [place] (Yellow) 07/03/19 21:13 Urine Turbidity Cloudy (Clear) 07/03/19 21:13 Urine pH 5.0 (5.0-7.0) 07/03/19 21:13 Ur Specific [place] 1.016 (1.003-1.030) 07/03/19 21:13 Urine Protein 30 mg/dl mg/dL (Negative) 07/03/19 21:13 Urine Glucose (UA) Neg mg/dL (Negative) 07/03/19 21:13 Urine Ketones Neg mg/dL (Negative) 07/03/19 21:13 Urine Blood Neg (Negative) 07/03/19 21:13 Urine Nitrite Neg (Negative) 07/03/19 21:13 Urine Bilirubin Neg (Negative) 07/03/19 21:13 Urine Urobilinogen 2.0 mg/dL (<2.0) 07/03/19 21:13 Ur Leukocyte Esterase Neg (Negative) 07/03/19 21:13 Urine WBC (Auto) 12.0 /HPF (0.0-6.0) H 07/03/19 21:13 Urine RBC (Auto) 6.0 /HPF (0.0-6.0) 07/03/19 21:13 U Epithel Cells (Auto) 1.0 /HPF (0-13.0) 07/03/19 21:13 Urine Bacteria (Auto) 1+ /HPF (Negative) 07/03/19 21:13 Urine WBC Clumps Few /HPF 07/03/19 21:13 Urine Mucus Few /HPF 07/03/19 21:13 Urine Osmolality 293 Mosm/kg 07/05/19 08:15 Vancomycin Trough 23.2 ug/mL (5.0-20.0) H 07/05/19 17:54 Urine Opiates Screen Presumptive negative 07/03/19 21:13 Urine Methadone Screen Presumptive negative 07/03/19 21:13 Ur Barbiturates Screen Presumptive negative 07/03/19 21:13 Ur Phencyclidine Scrn Presumptive negative 07/03/19 21:13 Ur Amphetamines Screen Presumptive negative 07/03/19 21:13 U Benzodiazepines Scrn Presumptive negative 07/03/19 21:13 Urine Cocaine Screen Presumptive negative 07/03/19 21:13 U Marijuana (THC) Screen Presumptive negative 07/03/19 21:13 Drugs of Abuse Note Disclamer 07/03/19 21:13 Plasma/Serum Alcohol < 0.01 % (0-0.07) 07/03/19 23:58 Coronavirus (PCR) Positive (Negative) A 07/04/19 10:09 Blood Type B POSITIVE 07/12/19 08:49 Antibody Screen Negative 07/12/19 08:49 Crossmatch See Detail 07/12/19 08:49 Wright/IV: Voiding Method Indwelling Catheter IV Catheter Type [Left Upper Mid-line arm] IV Catheter Type [Right INT / Saline Lock Forearm] IV Catheter Type [Right Hand] INT / Saline Lock IV Catheter Type [Right CVL Femoral] IV Catheter Type [Left INT / Saline Lock External Jugular] Active Medications - Current Medications Current Medications: Generic Name Dose Route Start Last Admin Trade Name Freq PRN Reason Stop Dose Admin Acetaminophen 650 mg 07/04/19 04:24 Tylenol VT Q6H PRN Pain MILD(1-3)/Fever >100.5/MURO Acetaminophen 650 mg 07/10/19 04:00 07/15/19 20:35 Tylenol PO 650 mg Q6HR PRN Administration Pain, Mild (1-3) FEVER Lipase/Protease/Amylase 1 each 07/04/19 10:04 07/20/19 06:[address] 10,500 Unit FEEDTUBE 1 each PRN PRN Administration For Clogged Feeding Tube Aspirin 81 mg 07/05/19 10:00 07/28/19 09:57 Baby Aspirin PO 81 mg QDAY TAMMIE Administration Dextrose 50 ml 07/04/19 06:54 D50w (25gm) Syringe IV Q30MIN PRN Hypoglycemia Protocol Docusate Sodium 100 mg 07/10/19 10:00 07/28/19 21:58 Colace PO 100 mg BID TAMMIE Administration Enoxaparin Sodium 40 mg 07/24/19 10:00 07/28/19 09:57 Enoxaparin SUB-Q 40 mg QDAY@1000 TAMMIE Administration Famotidine 20 mg 07/23/19 22:00 07/28/19 21:59 Pepcid PO 20 mg BID TAMMIE Administration Fentanyl 50 mcg 07/21/19 15:18 Sublimaze IV Q10MIN PRN ANALGESIA Folic Acid 1 mg 07/05/19 10:00 07/28/19 09:57 Folvite PO 1 mg QDAY TAMMIE Administration Hydrophilic Ointment 1 applic 07/03/19 19:56 07/05/19 17:42 Vaseline Lip Therapy TP 1 applic Q2HR PRN Administration Dry Lips Norepinephrine 4 mg in 250 mls @ 7.5 mls/hr 07/03/19 23:00 07/20/19 01:00 Levophed Drip 4 Mg/Ns 250 Ml IV Infused TITR TAMMIE Titration Protocol 2 MCG/MIN Fentanyl Citrate 2,000 mcg in 100 mls @ 4.75 mls/hr 07/21/19 16:00 07/29/19 05:32 Fentanyl Drip Premix IV 1 mcg/kg/hr TITR TAMMIE 4.75 mls/hr Administration Protocol 1 MCG/KG/HR Insulin Human Lispro 0 unit 07/07/19 12:00 07/29/19 06:05 Humalog SUB-Q Not Given Q6HR TAMMIE Protocol Levetiracetam 750 mg 07/06/19 11:00 07/28/19 21:58 Keppra FEEDTUBE 750 mg Q12HR TMAMIE Administration Metoprolol Tartrate 5 mg 07/12/19 15:08 07/29/19 07:30 Metoprolol IV 5 mg Q6HR PRN Administration Tachyarrhythmias Multi-Ingred Cream/Lotion/Oil/Oint 1 applic 07/03/19 19:56 07/05/19 13:19 Artificial Tears Ophth Oint OU 1 applic Q4HR PRN Administration Dry Eye(s) Naloxone HCl 0.1 mg 07/04/19 04:24 Naloxone IV Q2MIN PRN Res Rate </= 8 or 02 SAT < 92% Oxycodone/Acetaminophen 1 tab 07/19/19 14:17 Percocet 5/325 PO Q4H PRN Pain, Moderate (4-6) Scopolamine 1 each 07/10/19 11:00 07/28/19 11:30 Transderm-Scop TD 1 each Q3D TAMMIE Administration Simple Syrup 15 ml 07/04/19 10:04 07/10/19 21:56 Simple Syrup FEEDTUBE 15 ml PRN PRN Administration Hypoglycemia Simple Syrup 30 ml 07/04/19 10:04 Simple Syrup FEEDTUBE PRN PRN Hypoglycemia Sodium Bicarbonate 325 mg 07/04/19 10:04 07/20/19 10:20 Sodium Bicarbonate FEEDTUBE 325 mg PRN PRN Administration For Clogged Feeding Tube Sodium Chloride 10 ml 07/04/19 10:00 07/28/19 21:59 Sodium Chloride Flush Syringe 10 Ml IV 10 ml BID TAMMIE Administration Sodium Chloride 10 ml 07/04/19 04:24 Sodium Chloride Flush Syringe 10 Ml IV PRN PRN LINE FLUSH Sodium Hypochlorite 1 applic 07/10/19 14:00 07/28/19 21:59 Dakin's Half Strength TP 1 applicatio BID TAMMIE Administration Nutrition/Malnutrition Assess - Dietary Evaluation Nutrition/Malnutrition Findings: Nutrition Notes Start: 07/04/19 09:17 Freq: Status: Active Protocol: Document 07/23/19 16:03 RAMANDEEP (Rec: 07/23/19 16:09 RAMANDEEP [email or web address]) Nutrition Notes Initial or Follow up Reassessment Current Diagnosis Acute Kidney Injury,COPD, Decubitus(Pressure Ulcer), Diabetes,Hypertension Other Pertinent Diagnosis COVID-19 (+), pneu, seizures, schizophrenia, Buttock and R foot PU, Current Diet TF - Nepro at 45ml/hr Labs/Tests Reviewed Pertinent Medications Reviewed Height 5 ft 11 in Weight 97.2 kg [place] Body Weight (kg) 78.18 BMI 29.9 Weight change and time frame Wt change noted Subjective/Other Information RD spoke with RN via phone at 15:27. Pt tolerating TF at goal rate. Pt remains on vent support. Percent of energy/protein needs met: 100% energy 87% pro Burn Absent Trauma Absent #2 Nutrition Diagnosis Increased nutrient needs ( specify in comment below) Diagnosis Progress(for reassessment Continues documentation) #1 Nutrition Diagnosis Inadequate oral intake Diagnosis Progress(for reassessment Continues documentation) Is patient on ventilator? Yes Is Patient Ambulatory and/or Out of Bed No REE-([place] or-confined to bed) 2110.500 Additional Notes Use pro needs based on wt from previous assessment - current wt likely related to fluid retention Protein: 101-168g (1.2-2g/kg) Fluid: 1 ml/kcal or per MD Nutrition Intervention Nutrition Support: Nepro 1.8 at 45ml/hr Flush 200ml q4h Kcal 1,944 Protein (gm) 87 Fluid (mL) 785 Goal #1 TF tolerance Goal #2 TF to meet at least 75% of energy and protein needs Follow-Up By: 07/30/19 Additional Comments F/U: stable TF, vent status, wt
[2019-07-29] MEDS: DOCUSATE SODIUM 100 MG/10 ML ORAL LIQD PO SCH ×2 (09:39→22:47)
[2019-07-29] MEDS: ASPIRIN 81 MG TAB CHEW PO SCH (09:39)
[2019-07-29] MEDS: levETIRAcetam 500 MG/5 ML ORAL LIQD FEEDTUBE SCH ×2 (09:39→22:47)
[2019-07-29] MEDS: FOLIC ACID 1 MG TAB PO SCH (09:40)
[2019-07-29] MEDS: ENOXAPARIN 40 MG/0.4 ML INJ SUB-Q SCH (09:40)
[2019-07-29] MEDS: FAMOTIDINE 20 MG TAB PO SCH ×2 (09:40→22:47)
[2019-07-29] MEDS: SODIUM HYPOCHLORITE, DAKIN'S 1/2 STRENGTH (0.25%) 473 ML TOPICAL SOLN TP SCH (09:41)
[2019-07-29] MEDS: ACETAMINOPHEN 325 MG/10.15 ML ORAL LIQD UNIT DOSE PO PRN (12:00)
--- NOTE | 2019-07-29 12:02 | Progress Note ---
Assessment and Plan Cultures: 07/03/2019 urine culture: No growth 07/03/2019 Tracheal aspirate: E.coli A/P: 69-year-old male with CVA, hypertension, dementia, schizophrenia, alcohol use disorder was admitted to the emergency room after being brought in by EMS with progressive shortness of breath and unresponsiveness. He was noted to have agonal breathing and a faint pulse requiring CPR. It seems patient was on hospice recently, prior to admission. #Shock, likely septic: shock resolved, remains off pressors. #Severe COVID-19 disease and pneumonia: Elevated markers. Completed Plaquenil. Completed Ceftriaxone for treatment E.coli in tracheal aspirate. #Acute respiratory failure: on mechanical ventilation. #Transaminitis: Likely from COVID-19, shock #Leucocytosis: ?reactive from above. Recs: new low grade fevers, cloudy urine per RN and penile wound, advised to exchange Wright cath, send UA with urine culture from new cath and started empiric IV Cefepime blood cultures also ordered Overall prognosis remains extremely poor, patient is DNR. Yanna Calzada MD, FACP [facility] ([facility] C: [phone] O: [phone] F: [phone] Subjective Date of service: 07/29/19 Principal diagnosis: Bilateral pneumonia, severe sepsis with septic shock, encephalopathy Interval history: Patient with new low grade temperatures per RN, urine from Wright appears cloudy, also with penile wound. Remains intubated, on the vent. Objective - Exam Narrative Exam: Physical Exam (reviewed in chart due to PPE conservation) Constitutional: intubated, sedated, on the vent Head, Ears, Nose: normocephalic, atraumatic Eyes: limited due to PPE conservation strategy Neck: intubated Oral: intubated Cardiovascular: limited due to PPE conservation strategy Respiratory: limited due to PPE conservation strategy GI: limited due to PPE conservation strategy Musculoskeletal: limited due to PPE conservation strategy Skin: limited due to PPE conservation strategy Hem/Lymphatic: limited due to PPE conservation strategy Psych: no agitation Neurological: sedated, intubated, on the vent, exam limited - Constitutional Vitals: Vital Signs Temp Pulse Resp BP Pulse Ox 98.4 F 121 H 14 143/67 94 07/29/19 08:00 07/29/19 10:00 07/29/19 10:00 07/29/19 10:00 07/29/19 10:00 Temperature -Last 24 Hours Temperature 98.4 F Temperature 100 F Temperature 98.9 F Temperature 98.7 F Temperature 99.3 F Temperature 98.0 F - Labs CBC & Chem 7: 07/28/19 10:13 07/28/19 10:13 Labs: Abnormal lab results 07/28/19 Range/Units 23:54 POC Glucose 120 H (70-105)
[2019-07-29] MEDS: CEFEPIME/NS 1 GM/100 ML 1 GM/100 ML BAG IV SCH ×2 (14:30→22:47)
[2019-07-29 14:51] LABS: Bacteria,Urine 1+ /HPF (Negative); Bilirubin,Urine NEG (Negative); Blood,Urine SM (Negative); Color,Urine Yellow (Yellow); Protein,Urine <15 mg/dL mg/dL (Negative)
--- NOTE | 2019-07-29 15:37 | Progress Note ---
Assessment and Plan S/p Cardiopulmonary arrest with ROSC Severe Sepsis with septic shock. Acute hypoxemic respiratory failure on MVS COVID-19 positive with elevated markers Bilateral pneumonia Elevated LFTs. 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 Cefepime started by ID today Repeat COVID testing to help facilitate trach placement -Continue enoxaparin for VTE prophylaxis- currently has severe thrombocytosis -On Fentanyl infusion, at 1mcg to allow f weaning trials -Will coordinate sedation interruption( RN) and SBT( RT) today to optimize chances of success with weaning trial -Continue all critical care as documented below -ABG, CXR prn - continue airborne, droplet and contact isolation for COVID-19 - continue wound care per WCT - sedation prn for target RASS 0 to -1 - continue to wean supplemental oxygen for target O2 sat's > 90% - Daily SAT's and SBT assessment as tolerated - VAP bundle addressed - continue lung protective strategies - continue bronchodilators with pulmonary hygiene per RT - wean per pulmonary driven protocols otherwise - accuchecks with glycemic control per SSI (While critically ill target blood glucose of 140-180 mg/dL; avoid hypoglycemia) - continue to avoid benzodiazepines, reduce the possibility of delirium - prn analgesia per CPOT score - Maintenance of sleep-wake cycle, avoid delirium - continue enteral nutritional support at goal rate as tolerated - VTE prophylaxis-SCDs/Enoxaparin -Stress ulcer prophylaxis- Famotidine - PT/OT/ROM exercises - continue mobility protocol, off loading and skin assessment for pressure ulcer prevention - Monitor hemodynamics closely -Wright catheter in this critically ill patient with unstageable sacral decubitus ulcer -PEG site care - continue other care per attending / other consultants - discharge planning ongoing concurrently .... Re-evaluate in am & prn CONDITION: CRITICAL PROGNOSIS: GUARDED CODE STATUS: DNAR Called his family to discuss goals of care, wants us to continue to treat aggressively at this time. The high probability of a clinically significant, sudden or life-threatening deterioration of the [respiratory & cardiovascular] system(s) required my full and direct attention, intervention and personal management. The aggregate critical care time was [31] minutes without overlap. Time includes spent on; [x] Data Review and interpretation [x] Patient assessment and monitoring of vital signs [x] Documentation [x] Medication orders and management Subjective Date of service: 07/29/19 Principal diagnosis: Bilateral pneumonia, severe sepsis with septic shock, encephalopathy Interval history: The patient is a 69-year-old male with CVA, hypertension, dementia, schizophrenia, alcohol use disorder was admitted to the emergency room after being brought in by EMS with progressive shortness of breath and unresponsiveness. He was noted to have agonal breathing and a faint pulse requiring CPR. Patient was intubated and brought to the hospital. It seems, patient was on home hospice. Currently, remains critically ill, intubated, on mechanical ventilation. His COVID test resulted positive. Patient is seen today for: s/p cardiopulmonary arrest with ROSC;Ac hypoxemic Resp failure on MVS; Severe sepsis with Shock; Bilateral Pneumonia; POSITIVE coronavirus-19 infection. Seen and examined at bedside; 24hour events reviewed; nursing and respiratory care staff consulted; no adverse overnight events reported to me; resting in bed.Temperature spike this morning, with ongoing low grade fevers On MVS and tolerating it well; on fentanyl at 1mcg Tolerating tube feedings,, Mental status changes persist, will spontaneously open eyes Current setting AC-VC 14/500/30%/PEEP 6 Was seen by Gen Surg in consult for trach placement Objective Vital Signs - 12hr 07/29/19 07/29/19 07/29/19 03:57 04:00 04:19 Temperature 100 F H Pulse Rate 124 H 128 H Pulse Rate [ 122 H From Monitor] Pulse Rate [ 122 H Right Dorsalis Pedis] Respiratory 23 Rate Blood Pressure 154/77 163/80 O2 Sat by Pulse 94 95 Oximetry 07/29/19 07/29/19 07/29/19 04:30 05:00 05:30 Temperature Pulse Rate 123 H 129 H 129 H Pulse Rate [ From Monitor] Pulse Rate [ Right Dorsalis Pedis] Respiratory 23 19 23 Rate Blood Pressure 154/77 155/72 170/83 O2 Sat by Pulse 96 94 93 Oximetry 07/29/19 07/29/19 07/29/19 06:00 06:30 07:00 Temperature Pulse Rate 125 H 126 H 129 H Pulse Rate [ From Monitor] Pulse Rate [ Right Dorsalis Pedis] Respiratory 21 19 17 Rate Blood Pressure 169/80 165/80 172/84 O2 Sat by Pulse 95 93 93 Oximetry 07/29/19 07/29/19 07/29/19 07:30 08:00 08:30 Temperature 98.4 F Pulse Rate 126 H 113 H 118 H Pulse Rate [ 113 H From Monitor] Pulse Rate [ 113 H Right Dorsalis Pedis] Respiratory 21 20 21 Rate Blood Pressure 164/89 150/73 150/71 O2 Sat by Pulse 95 95 93 Oximetry 07/29/19 07/29/19 07/29/19 09:00 09:30 10:00 Temperature Pulse Rate 119 H 120 H 121 H Pulse Rate [ From Monitor] Pulse Rate [ Right Dorsalis Pedis] Respiratory 22 22 14 Rate Blood Pressure 149/67 149/66 143/67 O2 Sat by Pulse 94 95 94 Oximetry 07/29/19 07/29/19 07/29/19 10:30 11:00 11:30 Temperature Pulse Rate 118 H 120 H 118 H Pulse Rate [ From Monitor] Pulse Rate [ Right Dorsalis Pedis] Respiratory 17 20 21 Rate Blood Pressure 154/71 144/66 149/67 O2 Sat by Pulse 94 95 96 Oximetry 07/29/19 07/29/19 12:00 12:30 Temperature 100.8 F H Pulse Rate 120 H 121 H Pulse Rate [ 120 H From Monitor] Pulse Rate [ 120 H Right Dorsalis Pedis] Respiratory 20 20 Rate Blood Pressure 148/67 154/71 O2 Sat by Pulse 94 95 Oximetry Constitutional: appears uncomfortable, other (eelderly and chronically ill looking AAM, normocep[krystina;ic with mildly increased respiratory effort at rest) Eyes: non-icteric ENT: oropharynx moist, other (ETT 24 cm Pawan) Neck: supple, no lymphadenopathy, no JVD Effort: normal Ascultation: Bilateral: diminished breath sounds, rhonchi Percussion: Bilateral: not dull Cardiovascular: regular rate and rhythm Gastrointestinal: normoactive bowel sounds, soft, non-tender, non-distended, other (+ PEG tube with mild TF leakage) Integumentary: decubitus ulcer, other (penile shaft and scrotal ulcer) Extremities: no cyanosis, no edema, pink and warm, pulses normal Neurologic: unable to assess Psychiatric: other (Unable to assess re: AMS) CBC and BMP: 07/28/19 10:13 07/28/19 10:13 ABG, PT/INR, D-dimer: ABG ABG pH 7.430 pH Units (7.350-7.450) 07/27/19 05:16 ABG pCO2 48.2 mm Hg 07/27/19 05:16 ABG pO2 63.4 mm Hg (80.0-90.0) L 07/27/19 05:16 ABG O2 Saturation 92.7 % (95.0-99.0) L 07/27/19 05:16 PT/INR, D-dimer PT 16.0 Sec. (12.2-14.9) H 07/03/19 22:20 INR 1.26 (0.87-1.13) H 07/03/19 22:20 D-Dimer 1142.18 ng/mlDDU (0-234) H 07/08/19 00:45 Abnormal lab findings: Abnormal Labs 07/03/19 07/03/19 07/03/19 19:57 21:10 21:13 WBC RBC Hgb Hct MCV MCH MCHC RDW Plt Count Lymph % (Auto) [place] % (Auto) Lymph # [place] # Baso # Seg Neutrophils % Seg Neuts % (Manual) Lymphocytes % (Manual) Monocytes % (Manual) Nucleated RBC % Seg Neutrophils # Seg Neutrophils # Man Lymphocytes # (Manual) Monocytes # (Manual) PT INR D-Dimer ABG pH 7.238 L ABG pO2 210.8 H ABG HCO3 15.4 L ABG O2 Saturation 99.2 H ABG Base Excess -11.1 L ABG Hemoglobin 8.0 L Oxyhemoglobin Sodium 124 L Potassium Chloride 92.9 L Carbon Dioxide 10 L BUN 23 H Creatinine 0.5 L Glucose 118 H POC Glucose Lactic Acid Calcium 7.0 L Magnesium Iron TIBC Ferritin AST 70 H ALT 88 H Lactate Dehydrogenase Troponin T 0.032 H C-Reactive Protein Total Protein 5.0 L Albumin 1.8 L Cholesterol 47 L LDL Cholesterol Direct 25 L HDL Cholesterol 20 L Urine WBC (Auto) 12.0 H Vancomycin Trough Coronavirus (PCR) Crossmatch 07/03/19 07/03/19 07/03/19 22:20 22:20 22:20 WBC 30.5 H RBC 2.96 L Hgb 7.7 L Hct 23.9 L MCV 81 L MCH 26 L MCHC RDW 18.6 H Plt Count 459 H Lymph % (Auto) [place] % (Auto) Lymph # [place] # Baso # Seg Neutrophils % Seg Neuts % (Manual) 93.0 H Lymphocytes % (Manual) 0.5 L Monocytes % (Manual) Nucleated RBC % Seg Neutrophils # Seg Neutrophils # Man 28.4 H Lymphocytes # (Manual) 0.2 L Monocytes # (Manual) PT 16.0 H INR 1.26 H D-Dimer ABG pH ABG pO2 ABG HCO3 ABG O2 Saturation ABG Base Excess ABG Hemoglobin Oxyhemoglobin Sodium Potassium Chloride Carbon Dioxide BUN Creatinine Glucose POC Glucose Lactic Acid 6.90 H* Calcium Magnesium Iron TIBC Ferritin AST ALT Lactate Dehydrogenase Troponin T C-Reactive Protein Total Protein Albumin Cholesterol LDL Cholesterol Direct HDL Cholesterol Urine WBC (Auto) Vancomycin Trough Coronavirus (PCR) Crossmatch 07/03/19 07/04/19 07/04/19 23:58 05:15 07:05 WBC 17.1 H RBC 3.22 L Hgb 8.3 L Hct 25.4 L MCV 79 L MCH 26 L MCHC RDW 18.6 H Plt Count Lymph % (Auto) [place] % (Auto) Lymph # [place] # Baso # Seg Neutrophils % Seg Neuts % (Manual) 74.0 H Lymphocytes % (Manual) 0 L Monocytes % (Manual) Nucleated RBC % Seg Neutrophils # Seg Neutrophils # Man 12.7 H Lymphocytes # (Manual) 0.0 L Monocytes # (Manual) PT INR D-Dimer ABG pH 7.310 L ABG pO2 73.2 L ABG HCO3 17.8 L ABG O2 Saturation 93.8 L ABG Base Excess -7.7 L ABG Hemoglobin 9.6 L Oxyhemoglobin 92.3 L Sodium Potassium Chloride Carbon Dioxide BUN Creatinine Glucose POC Glucose Lactic Acid 7.10 H* Calcium Magnesium Iron TIBC Ferritin AST ALT Lactate Dehydrogenase Troponin T C-Reactive Protein Total Protein Albumin Cholesterol LDL Cholesterol Direct HDL Cholesterol Urine WBC (Auto) Vancomycin Trough Coronavirus (PCR) Crossmatch 07/04/19 07/04/19 07/04/19 07:05 07:05 07:05 WBC RBC Hgb Hct MCV MCH MCHC RDW Plt Count Lymph % (Auto) [place] % (Auto) Lymph # [place] # Baso # Seg Neutrophils % Seg Neuts % (Manual) Lymphocytes % (Manual) Monocytes % (Manual) Nucleated RBC % Seg Neutrophils # Seg Neutrophils # Man Lymphocytes # (Manual) Monocytes # (Manual) PT INR D-Dimer ABG pH ABG pO2 ABG HCO3 ABG O2 Saturation ABG Base Excess ABG Hemoglobin Oxyhemoglobin Sodium 120 L Potassium 5.1 H Chloride 90.0 L Carbon Dioxide 14 L BUN 26 H Creatinine 0.5 L Glucose POC Glucose Lactic Acid 3.30 H* Calcium 8.0 L Magnesium Iron 9 L TIBC 97 L Ferritin AST 73 H ALT 91 H Lactate Dehydrogenase Troponin T C-Reactive Protein Total Protein 5.5 L Albumin 2.0 L Cholesterol LDL Cholesterol Direct HDL Cholesterol Urine WBC (Auto) Vancomycin Trough Coronavirus (PCR) Crossmatch 07/04/19 07/04/19 07/04/19 09:39 09:39 09:39 WBC RBC Hgb Hct MCV MCH MCHC RDW Plt Count Lymph % (Auto) [place] % (Auto) Lymph # [place] # Baso # Seg Neutrophils % Seg Neuts % (Manual) Lymphocytes % (Manual) Monocytes % (Manual) Nucleated RBC % Seg Neutrophils # Seg Neutrophils # Man Lymphocytes # (Manual) Monocytes # (Manual) PT INR D-Dimer 1419.14 H ABG pH ABG pO2 ABG HCO3 ABG O2 Saturation ABG Base Excess ABG Hemoglobin Oxyhemoglobin Sodium Potassium Chloride Carbon Dioxide BUN Creatinine Glucose POC Glucose Lactic Acid Calcium Magnesium Iron TIBC Ferritin 1719.0 H AST ALT Lactate Dehydrogenase 234 H Troponin T C-Reactive Protein 15.50 H Total Protein Albumin Cholesterol LDL Cholesterol Direct HDL Cholesterol Urine WBC (Auto) Vancomycin Trough Coronavirus (PCR) Crossmatch 07/04/19 07/04/19 07/04/19 10:09 18:08 18:28 WBC RBC Hgb Hct MCV MCH MCHC RDW Plt Count Lymph % (Auto) [place] % (Auto) Lymph # [place] # Baso # Seg Neutrophils % Seg Neuts % (Manual) Lymphocytes % (Manual) Monocytes % (Manual) Nucleated RBC % Seg Neutrophils # Seg Neutrophils # Man Lymphocytes # (Manual) Monocytes # (Manual) PT INR D-Dimer ABG pH ABG pO2 ABG HCO3 ABG O2 Saturation ABG Base Excess ABG Hemoglobin Oxyhemoglobin Sodium 117 L* Potassium 5.6 H Chloride 90.3 L Carbon Dioxide 16 L BUN 28 H Creatinine 0.5 L Glucose 58 L POC Glucose 65 L Lactic Acid Calcium 8.2 L Magnesium Iron TIBC Ferritin AST ALT Lactate Dehydrogenase Troponin T C-Reactive Protein Total Protein Albumin Cholesterol LDL Cholesterol Direct HDL Cholesterol Urine WBC (Auto) Vancomycin Trough Coronavirus (PCR) Positive A Crossmatch 07/04/19 07/04/19 07/04/19 23:45 Unknown Unknown WBC RBC Hgb Hct MCV MCH MCHC RDW Plt Count Lymph % (Auto) [place] % (Auto) Lymph # [place] # Baso # Seg Neutrophils % Seg Neuts % (Manual) Lymphocytes % (Manual) Monocytes % (Manual) Nucleated RBC % Seg Neutrophils # Seg Neutrophils # Man Lymphocytes # (Manual) Monocytes # (Manual) PT INR D-Dimer 759.77 H ABG pH ABG pO2 ABG HCO3 ABG O2 Saturation ABG Base Excess ABG Hemoglobin Oxyhemoglobin Sodium 122 L Potassium Chloride 93.0 L Carbon Dioxide 19 L BUN 27 H Creatinine 0.5 L Glucose POC Glucose Lactic Acid Calcium 8.3 L Magnesium Iron TIBC Ferritin 1301.0 H AST ALT Lactate Dehydrogenase Troponin T C-Reactive Protein Total Protein Albumin Cholesterol LDL Cholesterol Direct HDL Cholesterol Urine WBC (Auto) Vancomycin Trough Coronavirus (PCR) Crossmatch 07/04/19 07/05/19 07/05/19 Unknown 03:20 04:00 WBC RBC Hgb Hct MCV MCH MCHC RDW Plt Count Lymph % (Auto) [place] % (Auto) Lymph # [place] # Baso # Seg Neutrophils % Seg Neuts % (Manual) Lymphocytes % (Manual) Monocytes % (Manual) Nucleated RBC % Seg Neutrophils # Seg Neutrophils # Man Lymphocytes # (Manual) Monocytes # (Manual) PT INR D-Dimer ABG pH ABG pO2 60.6 L ABG HCO3 ABG O2 Saturation 93.5 L ABG Base Excess -2.4 L ABG Hemoglobin 6.9 L Oxyhemoglobin 92.0 L Sodium 125 L Potassium Chloride 92.6 L Carbon Dioxide 19 L BUN 24 H Creatinine 0.6 L Glucose POC Glucose Lactic Acid Calcium 8.2 L Magnesium 1.40 L Iron TIBC Ferritin AST ALT Lactate Dehydrogenase 242 H Troponin T C-Reactive Protein 16.70 H Total Protein Albumin Cholesterol LDL Cholesterol Direct HDL Cholesterol Urine WBC (Auto) Vancomycin Trough Coronavirus (PCR) Crossmatch 07/05/19 07/05/19 07/05/19 10:11 16:15 17:54 WBC 46.4 H* RBC 2.77 L Hgb 7.2 L Hct 21.9 L MCV 79 L MCH 26 L MCHC RDW 19.0 H Plt Count Lymph % (Auto) [place] % (Auto) Lymph # [place] # Baso # Seg Neutrophils % Seg Neuts % (Manual) 82.0 H Lymphocytes % (Manual) 1.0 L Monocytes % (Manual) Nucleated RBC % Seg Neutrophils # Seg Neutrophils # Man 38.0 H Lymphocytes # (Manual) 0.5 L Monocytes # (Manual) PT INR D-Dimer ABG pH ABG pO2 ABG HCO3 ABG O2 Saturation ABG Base Excess ABG Hemoglobin Oxyhemoglobin Sodium Potassium Chloride Carbon Dioxide BUN Creatinine Glucose POC Glucose 69 L Lactic Acid Calcium Magnesium Iron TIBC Ferritin AST ALT Lactate Dehydrogenase Troponin T C-Reactive Protein Total Protein Albumin Cholesterol LDL Cholesterol Direct HDL Cholesterol Urine WBC (Auto) Vancomycin Trough 23.2 H Coronavirus (PCR) Crossmatch 07/05/19 07/06/19 07/06/19 19:58 00:27 00:27 WBC RBC Hgb Hct MCV MCH MCHC RDW Plt Count Lymph % (Auto) [place] % (Auto) Lymph # [place] # Baso # Seg Neutrophils % Seg Neuts % (Manual) Lymphocytes % (Manual) Monocytes % (Manual) Nucleated RBC % Seg Neutrophils # Seg Neutrophils # Man Lymphocytes # (Manual) Monocytes # (Manual) PT INR D-Dimer 1333.22 H ABG pH ABG pO2 ABG HCO3 ABG O2 Saturation ABG Base Excess ABG Hemoglobin Oxyhemoglobin Sodium 127 L Potassium Chloride Carbon Dioxide BUN Creatinine Glucose POC Glucose Lactic Acid Calcium Magnesium Iron TIBC Ferritin 977.1 H AST ALT Lactate Dehydrogenase Troponin T C-Reactive Protein Total Protein Albumin Cholesterol LDL Cholesterol Direct HDL Cholesterol Urine WBC (Auto) Vancomycin Trough Coronavirus (PCR) Crossmatch 07/06/19 07/06/19 07/06/19 00:27 02:00 02:56 WBC RBC Hgb Hct MCV MCH MCHC RDW Plt Count Lymph % (Auto) [place] % (Auto) Lymph # [place] # Baso # Seg Neutrophils % Seg Neuts % (Manual) Lymphocytes % (Manual) Monocytes % (Manual) Nucleated RBC % Seg Neutrophils # Seg Neutrophils # Man Lymphocytes # (Manual) Monocytes # (Manual) PT INR D-Dimer ABG pH ABG pO2 70.3 L ABG HCO3 ABG O2 Saturation 94.8 L ABG Base Excess ABG Hemoglobin 8.0 L Oxyhemoglobin 93.2 L Sodium Potassium Chloride Carbon Dioxide BUN Creatinine Glucose POC Glucose 117 H Lactic Acid Calcium Magnesium Iron TIBC Ferritin AST ALT Lactate Dehydrogenase 236 H Troponin T C-Reactive Protein 22.90 H Total Protein Albumin Cholesterol LDL Cholesterol Direct HDL Cholesterol Urine WBC (Auto) Vancomycin Trough Coronavirus (PCR) Crossmatch 07/06/19 07/06/19 07/06/19 03:49 03:49 07:40 WBC 38.8 H RBC 2.51 L Hgb 6.7 L Hct 19.9 L* MCV 79 L MCH 27 L MCHC RDW 19.2 H Plt Count Lymph % (Auto) [place] % (Auto) Lymph # [place] # Baso # Seg Neutrophils % Seg Neuts % (Manual) 90.5 H Lymphocytes % (Manual) 1.0 L Monocytes % (Manual) Nucleated RBC % Seg Neutrophils # Seg Neutrophils # Man 35.1 H Lymphocytes # (Manual) 0.4 L Monocytes # (Manual) PT INR D-Dimer ABG pH ABG pO2 ABG HCO3 ABG O2 Saturation ABG Base Excess ABG Hemoglobin Oxyhemoglobin Sodium 131 L Potassium Chloride 96.9 L Carbon Dioxide 18 L BUN 23 H Creatinine 0.5 L Glucose POC Glucose Lactic Acid Calcium 8.0 L Magnesium Iron TIBC Ferritin AST ALT Lactate Dehydrogenase Troponin T C-Reactive Protein Total Protein Albumin Cholesterol LDL Cholesterol Direct HDL Cholesterol Urine WBC (Auto) Vancomycin Trough Coronavirus (PCR) Crossmatch See Detail 07/06/19 07/06/19 07/06/19 12:38 14:39 20:00 WBC RBC Hgb Hct MCV MCH MCHC RDW Plt Count Lymph % (Auto) [place] % (Auto) Lymph # [place] # Baso # Seg Neutrophils % Seg Neuts % (Manual) Lymphocytes % (Manual) Monocytes % (Manual) Nucleated RBC % Seg Neutrophils # Seg Neutrophils # Man Lymphocytes # (Manual) Monocytes # (Manual) PT INR D-Dimer ABG pH ABG pO2 ABG HCO3 ABG O2 Saturation ABG Base Excess ABG Hemoglobin Oxyhemoglobin Sodium Potassium Chloride Carbon Dioxide BUN Creatinine Glucose POC Glucose 112 H 111 H 140 H Lactic Acid Calcium Magnesium Iron TIBC Ferritin AST ALT Lactate Dehydrogenase Troponin T C-Reactive Protein Total Protein Albumin Cholesterol LDL Cholesterol Direct HDL Cholesterol Urine WBC (Auto) Vancomycin Trough Coronavirus (PCR) Crossmatch 07/06/19 07/06/19 07/07/19 22:43 22:56 02:20 WBC RBC Hgb 7.9 L Hct 23.1 L MCV MCH MCHC RDW Plt Count Lymph % (Auto) [place] % (Auto) Lymph # [place] # Baso # Seg Neutrophils % Seg Neuts % (Manual) Lymphocytes % (Manual) Monocytes % (Manual) Nucleated RBC % Seg Neutrophils # Seg Neutrophils # Man Lymphocytes # (Manual) Monocytes # (Manual) PT INR D-Dimer ABG pH ABG pO2 ABG HCO3 ABG O2 Saturation ABG Base Excess ABG Hemoglobin Oxyhemoglobin Sodium Potassium Chloride Carbon Dioxide BUN Creatinine Glucose POC Glucose 122 H 149 H Lactic Acid Calcium Magnesium Iron TIBC Ferritin AST ALT Lactate Dehydrogenase Troponin T C-Reactive Protein Total Protein Albumin Cholesterol LDL Cholesterol Direct HDL Cholesterol Urine WBC (Auto) Vancomycin Trough Coronavirus (PCR) Crossmatch 07/07/19 07/07/19 07/07/19 04:35 05:27 05:34 WBC 23.1 H RBC 3.00 L Hgb 8.1 L Hct 24.2 L MCV 81 L MCH 27 L MCHC RDW 20.6 H Plt Count Lymph % (Auto) [place] % (Auto) Lymph # [place] # Baso # Seg Neutrophils % Seg Neuts % (Manual) 90.0 H Lymphocytes % (Manual) 2.0 L Monocytes % (Manual) Nucleated RBC % Seg Neutrophils # Seg Neutrophils # Man 20.8 H Lymphocytes # (Manual) 0.5 L Monocytes # (Manual) PT INR D-Dimer ABG pH ABG pO2 65.8 L ABG HCO3 ABG O2 Saturation 92.2 L ABG Base Excess ABG Hemoglobin 8.3 L Oxyhemoglobin 90.6 L Sodium Potassium Chloride Carbon Dioxide BUN Creatinine Glucose POC Glucose 132 H Lactic Acid Calcium Magnesium Iron TIBC Ferritin AST ALT Lactate Dehydrogenase Troponin T C-Reactive Protein Total Protein Albumin Cholesterol LDL Cholesterol Direct HDL Cholesterol Urine WBC (Auto) Vancomycin Trough Coronavirus (PCR) Crossmatch 07/07/19 07/07/19 07/07/19 05:34 11:50 15:58 WBC RBC Hgb 8.1 L Hct 24.2 L MCV MCH MCHC RDW Plt Count Lymph % (Auto) [place] % (Auto) Lymph # [place] # Baso # Seg Neutrophils % Seg Neuts % (Manual) Lymphocytes % (Manual) Monocytes % (Manual) Nucleated RBC % Seg Neutrophils # Seg Neutrophils # Man Lymphocytes # (Manual) Monocytes # (Manual) PT INR D-Dimer ABG pH ABG pO2 ABG HCO3 ABG O2 Saturation ABG Base Excess ABG Hemoglobin Oxyhemoglobin Sodium 135 L Potassium 3.3 L Chloride Carbon Dioxide 20 L BUN 27 H Creatinine 0.6 L Glucose 121 H POC Glucose 123 H Lactic Acid Calcium 8.0 L Magnesium Iron TIBC Ferritin AST ALT Lactate Dehydrogenase Troponin T C-Reactive Protein Total Protein Albumin Cholesterol LDL Cholesterol Direct HDL Cholesterol Urine WBC (Auto) Vancomycin Trough Coronavirus (PCR) Crossmatch 07/07/19 07/07/19 07/07/19 17:42 22:00 23:53 WBC RBC Hgb 8.0 L Hct 23.4 L MCV MCH MCHC RDW Plt Count Lymph % (Auto) [place] % (Auto) Lymph # [place] # Baso # Seg Neutrophils % Seg Neuts % (Manual) Lymphocytes % (Manual) Monocytes % (Manual) Nucleated RBC % Seg Neutrophils # Seg Neutrophils # Man Lymphocytes # (Manual) Monocytes # (Manual) PT INR D-Dimer ABG pH ABG pO2 ABG HCO3 ABG O2 Saturation ABG Base Excess ABG Hemoglobin Oxyhemoglobin Sodium Potassium Chloride Carbon Dioxide BUN Creatinine Glucose POC Glucose 107 H 117 H Lactic Acid Calcium Magnesium Iron TIBC Ferritin AST ALT Lactate Dehydrogenase Troponin T C-Reactive Protein Total Protein Albumin Cholesterol LDL Cholesterol Direct HDL Cholesterol Urine WBC (Auto) Vancomycin Trough Coronavirus (PCR) Crossmatch 07/08/19 07/08/19 07/08/19 00:45 00:45 00:45 WBC RBC Hgb Hct MCV MCH MCHC RDW Plt Count Lymph % (Auto) [place] % (Auto) Lymph # [place] # Baso # Seg Neutrophils % Seg Neuts % (Manual) Lymphocytes % (Manual) Monocytes % (Manual) Nucleated RBC % Seg Neutrophils # Seg Neutrophils # Man Lymphocytes # (Manual) Monocytes # (Manual) PT INR D-Dimer 1142.18 H ABG pH ABG pO2 ABG HCO3 ABG O2 Saturation ABG Base Excess ABG Hemoglobin Oxyhemoglobin Sodium Potassium Chloride Carbon Dioxide BUN Creatinine Glucose POC Glucose Lactic Acid Calcium Magnesium Iron TIBC Ferritin 839.0 H AST ALT Lactate Dehydrogenase 253 H Troponin T C-Reactive Protein 18.90 H Total Protein Albumin Cholesterol LDL Cholesterol Direct HDL Cholesterol Urine WBC (Auto) Vancomycin Trough Coronavirus (PCR) Crossmatch 07/08/19 07/08/19 07/08/19 04:30 05:11 12:02 WBC RBC Hgb Hct MCV MCH MCHC RDW Plt Count Lymph % (Auto) [place] % (Auto) Lymph # [place] # Baso # Seg Neutrophils % Seg Neuts % (Manual) Lymphocytes % (Manual) Monocytes % (Manual) Nucleated RBC % Seg Neutrophils # Seg Neutrophils # Man Lymphocytes # (Manual) Monocytes # (Manual) PT INR D-Dimer ABG pH ABG pO2 66.0 L ABG HCO3 ABG O2 Saturation 92.3 L ABG Base Excess ABG Hemoglobin 7.7 L Oxyhemoglobin 90.7 L Sodium Potassium Chloride Carbon Dioxide BUN Creatinine Glucose POC Glucose 108 H 153 H Lactic Acid Calcium Magnesium Iron TIBC Ferritin AST ALT Lactate Dehydrogenase Troponin T C-Reactive Protein Total Protein Albumin Cholesterol LDL Cholesterol Direct HDL Cholesterol Urine WBC (Auto) Vancomycin Trough Coronavirus (PCR) Crossmatch 07/08/19 07/08/19 07/08/19 16:15 18:22 23:35 WBC RBC Hgb Hct MCV MCH MCHC RDW Plt Count Lymph % (Auto) [place] % (Auto) Lymph # [place] # Baso # Seg Neutrophils % Seg Neuts % (Manual) Lymphocytes % (Manual) Monocytes % (Manual) Nucleated RBC % Seg Neutrophils # Seg Neutrophils # Man Lymphocytes # (Manual) Monocytes # (Manual) PT INR D-Dimer ABG pH ABG pO2 ABG HCO3 ABG O2 Saturation ABG Base Excess ABG Hemoglobin Oxyhemoglobin Sodium 134 L Potassium 3.3 L Chloride Carbon Dioxide 21 L BUN 27 H Creatinine 0.6 L Glucose 146 H POC Glucose 134 H 133 H Lactic Acid Calcium Magnesium Iron TIBC Ferritin AST ALT Lactate Dehydrogenase Troponin T C-Reactive Protein Total Protein Albumin Cholesterol LDL Cholesterol Direct HDL Cholesterol Urine WBC (Auto) Vancomycin Trough Coronavirus (PCR) Crossmatch 07/09/19 07/09/19 07/09/19 04:30 04:30 05:00 WBC 18.9 H RBC 2.77 L Hgb 7.4 L Hct 22.8 L MCV 82 L MCH 27 L MCHC RDW 20.9 H Plt Count 130 L Lymph % (Auto) [place] % (Auto) Lymph # [place] # Baso # Seg Neutrophils % Seg Neuts % (Manual) 84.0 H Lymphocytes % (Manual) 0 L Monocytes % (Manual) Nucleated RBC % Seg Neutrophils # Seg Neutrophils # Man 15.9 H Lymphocytes # (Manual) 0.0 L Monocytes # (Manual) PT INR D-Dimer ABG pH ABG pO2 ABG HCO3 ABG O2 Saturation ABG Base Excess ABG Hemoglobin Oxyhemoglobin Sodium Potassium 3.1 L Chloride Carbon Dioxide BUN 26 H Creatinine 0.5 L Glucose 125 H POC Glucose 155 H Lactic Acid Calcium Magnesium Iron TIBC Ferritin AST ALT Lactate Dehydrogenase Troponin T C-Reactive Protein Total Protein Albumin Cholesterol LDL Cholesterol Direct HDL Cholesterol Urine WBC (Auto) Vancomycin Trough Coronavirus (PCR) Crossmatch 07/09/19 07/09/19 07/09/19 05:55 12:22 17:50 WBC RBC Hgb Hct MCV MCH MCHC RDW Plt Count Lymph % (Auto) [place] % (Auto) Lymph # [place] # Baso # Seg Neutrophils % Seg Neuts % (Manual) Lymphocytes % (Manual) Monocytes % (Manual) Nucleated RBC % Seg Neutrophils # Seg Neutrophils # Man Lymphocytes # (Manual) Monocytes # (Manual) PT INR D-Dimer ABG pH ABG pO2 62.8 L ABG HCO3 ABG O2 Saturation ABG Base Excess ABG Hemoglobin 6.1 L Oxyhemoglobin 93.9 L Sodium Potassium Chloride Carbon Dioxide BUN Creatinine Glucose POC Glucose 115 H 133 H Lactic Acid Calcium Magnesium Iron TIBC Ferritin AST ALT Lactate Dehydrogenase Troponin T C-Reactive Protein Total Protein Albumin Cholesterol LDL Cholesterol Direct HDL Cholesterol Urine WBC (Auto) Vancomycin Trough Coronavirus (PCR) Crossmatch 07/10/19 07/10/19 07/10/19 00:38 04:00 04:00 WBC RBC Hgb Hct MCV MCH MCHC RDW Plt Count Lymph % (Auto) [place] % (Auto) Lymph # [place] # Baso # Seg Neutrophils % Seg Neuts % (Manual) Lymphocytes % (Manual) Monocytes % (Manual) Nucleated RBC % Seg Neutrophils # Seg Neutrophils # Man Lymphocytes # (Manual) Monocytes # (Manual) PT INR D-Dimer ABG pH ABG pO2 ABG HCO3 ABG O2 Saturation ABG Base Excess ABG Hemoglobin Oxyhemoglobin Sodium Potassium Chloride 107.9 H Carbon Dioxide BUN 26 H Creatinine 0.4 L Glucose 137 H POC Glucose 122 H Lactic Acid Calcium Magnesium 1.50 L Iron TIBC Ferritin AST ALT Lactate Dehydrogenase 277 H Troponin T C-Reactive Protein 15.10 H Total Protein Albumin Cholesterol LDL Cholesterol Direct HDL Cholesterol Urine WBC (Auto) Vancomycin Trough Coronavirus (PCR) Crossmatch 07/10/19 07/10/19 07/10/19 04:07 05:21 17:25 WBC RBC Hgb Hct MCV MCH MCHC RDW Plt Count Lymph % (Auto) [place] % (Auto) Lymph # [place] # Baso # Seg Neutrophils % Seg Neuts % (Manual) Lymphocytes % (Manual) Monocytes % (Manual) Nucleated RBC % Seg Neutrophils # Seg Neutrophils # Man Lymphocytes # (Manual) Monocytes # (Manual) PT INR D-Dimer ABG pH ABG pO2 65.6 L ABG HCO3 26.3 H ABG O2 Saturation ABG Base Excess ABG Hemoglobin 6.7 L Oxyhemoglobin Sodium Potassium Chloride Carbon Dioxide BUN Creatinine Glucose POC Glucose 144 H 113 H Lactic Acid Calcium Magnesium Iron TIBC Ferritin AST ALT Lactate Dehydrogenase Troponin T C-Reactive Protein Total Protein Albumin Cholesterol LDL Cholesterol Direct HDL Cholesterol Urine WBC (Auto) Vancomycin Trough Coronavirus (PCR) Crossmatch 07/11/19 07/11/19 07/11/19 00:07 05:14 05:25 WBC RBC Hgb Hct MCV MCH MCHC RDW Plt Count Lymph % (Auto) [place] % (Auto) Lymph # [place] # Baso # Seg Neutrophils % Seg Neuts % (Manual) Lymphocytes % (Manual) Monocytes % (Manual) Nucleated RBC % Seg Neutrophils # Seg Neutrophils # Man Lymphocytes # (Manual) Monocytes # (Manual) PT INR D-Dimer ABG pH ABG pO2 ABG HCO3 ABG O2 Saturation ABG Base Excess ABG Hemoglobin 5.8 L Oxyhemoglobin Sodium Potassium Chloride 108.0 H Carbon Dioxide BUN 26 H Creatinine 0.4 L Glucose 110 H POC Glucose 121 H Lactic Acid Calcium Magnesium Iron TIBC Ferritin AST ALT Lactate Dehydrogenase Troponin T C-Reactive Protein Total Protein Albumin Cholesterol LDL Cholesterol Direct HDL Cholesterol Urine WBC (Auto) Vancomycin Trough Coronavirus (PCR) Crossmatch 07/11/19 07/11/19 07/11/19 12:27 18:00 23:42 WBC RBC Hgb Hct MCV MCH MCHC RDW Plt Count Lymph % (Auto) [place] % (Auto) Lymph # [place] # Baso # Seg Neutrophils % Seg Neuts % (Manual) Lymphocytes % (Manual) Monocytes % (Manual) Nucleated RBC % Seg Neutrophils # Seg Neutrophils # Man Lymphocytes # (Manual) Monocytes # (Manual) PT INR D-Dimer ABG pH ABG pO2 ABG HCO3 ABG O2 Saturation ABG Base Excess ABG Hemoglobin Oxyhemoglobin Sodium Potassium Chloride Carbon Dioxide BUN Creatinine Glucose POC Glucose 158 H 141 H 142 H Lactic Acid Calcium Magnesium Iron TIBC Ferritin AST ALT Lactate Dehydrogenase Troponin T C-Reactive Protein Total Protein Albumin Cholesterol LDL Cholesterol Direct HDL Cholesterol Urine WBC (Auto) Vancomycin Trough Coronavirus (PCR) Crossmatch 07/12/19 07/12/19 07/12/19 04:46 04:46 05:23 WBC 23.6 H RBC 2.51 L Hgb 6.7 L Hct 20.8 L MCV 83 L MCH 27 L MCHC RDW 20.3 H Plt Count Lymph % (Auto) [place] % (Auto) Lymph # [place] # Baso # Seg Neutrophils % Seg Neuts % (Manual) 94.0 H Lymphocytes % (Manual) 4.0 L Monocytes % (Manual) Nucleated RBC % Seg Neutrophils # Seg Neutrophils # Man 22.2 H Lymphocytes # (Manual) 0.9 L Monocytes # (Manual) PT INR D-Dimer ABG pH ABG pO2 ABG HCO3 ABG O2 Saturation ABG Base Excess ABG Hemoglobin Oxyhemoglobin Sodium Potassium Chloride 107.1 H Carbon Dioxide BUN 25 H Creatinine 0.4 L Glucose 122 H POC Glucose 118 H Lactic Acid Calcium Magnesium Iron TIBC Ferritin AST ALT Lactate Dehydrogenase Troponin T C-Reactive Protein Total Protein Albumin Cholesterol LDL Cholesterol Direct HDL Cholesterol Urine WBC (Auto) Vancomycin Trough Coronavirus (PCR) Crossmatch 07/12/19 07/12/19 07/12/19 08:49 11:36 18:15 WBC RBC Hgb Hct MCV MCH MCHC RDW Plt Count Lymph % (Auto) [place] % (Auto) Lymph # [place] # Baso # Seg Neutrophils % Seg Neuts % (Manual) Lymphocytes % (Manual) Monocytes % (Manual) Nucleated RBC % Seg Neutrophils # Seg Neutrophils # Man Lymphocytes # (Manual) Monocytes # (Manual) PT INR D-Dimer ABG pH ABG pO2 ABG HCO3 ABG O2 Saturation ABG Base Excess ABG Hemoglobin Oxyhemoglobin Sodium Potassium Chloride Carbon Dioxide BUN Creatinine Glucose POC Glucose 124 H 110 H Lactic Acid Calcium Magnesium Iron TIBC Ferritin AST ALT Lactate Dehydrogenase Troponin T C-Reactive Protein Total Protein Albumin Cholesterol LDL Cholesterol Direct HDL Cholesterol Urine WBC (Auto) Vancomycin Trough Coronavirus (PCR) Crossmatch See Detail 07/12/19 07/13/19 07/13/19 23:16 05:26 06:50 WBC 23.9 H RBC 2.58 L Hgb 6.9 L Hct 21.5 L MCV 83 L MCH 27 L MCHC RDW 19.0 H Plt Count Lymph % (Auto) [place] % (Auto) Lymph # [place] # Baso # Seg Neutrophils % Seg Neuts % (Manual) 96.0 H Lymphocytes % (Manual) 3.0 L Monocytes % (Manual) Nucleated RBC % Seg Neutrophils # Seg Neutrophils # Man 22.9 H Lymphocytes # (Manual) 0.7 L Monocytes # (Manual) PT INR D-Dimer ABG pH ABG pO2 ABG HCO3 ABG O2 Saturation ABG Base Excess ABG Hemoglobin Oxyhemoglobin Sodium Potassium Chloride Carbon Dioxide BUN Creatinine Glucose POC Glucose 108 H 126 H Lactic Acid Calcium Magnesium Iron TIBC Ferritin AST ALT Lactate Dehydrogenase Troponin T C-Reactive Protein Total Protein Albumin Cholesterol LDL Cholesterol Direct HDL Cholesterol Urine WBC (Auto) Vancomycin Trough Coronavirus (PCR) Crossmatch 07/13/19 07/13/19 07/13/19 06:50 12:38 18:05 WBC RBC Hgb Hct MCV MCH MCHC RDW Plt Count Lymph % (Auto) [place] % (Auto) Lymph # [place] # Baso # Seg Neutrophils % Seg Neuts % (Manual) Lymphocytes % (Manual) Monocytes % (Manual) Nucleated RBC % Seg Neutrophils # Seg Neutrophils # Man Lymphocytes # (Manual) Monocytes # (Manual) PT INR D-Dimer ABG pH ABG pO2 ABG HCO3 ABG O2 Saturation ABG Base Excess ABG Hemoglobin Oxyhemoglobin Sodium Potassium Chloride Carbon Dioxide BUN 33 H Creatinine 0.5 L Glucose 136 H POC Glucose 164 H 145 H Lactic Acid Calcium Magnesium Iron TIBC Ferritin AST ALT Lactate Dehydrogenase Troponin T C-Reactive Protein Total Protein Albumin Cholesterol LDL Cholesterol Direct HDL Cholesterol Urine WBC (Auto) Vancomycin Trough Coronavirus (PCR) Crossmatch 07/13/19 07/14/19 07/14/19 18:30 00:21 04:40 WBC 22.9 H RBC 2.45 L Hgb 6.6 L Hct 21.1 L MCV MCH 27 L MCHC 31 L RDW 19.2 H Plt Count Lymph % (Auto) [place] % (Auto) Lymph # [place] # Baso # Seg Neutrophils % Seg Neuts % (Manual) 91.0 H Lymphocytes % (Manual) 7.0 L Monocytes % (Manual) Nucleated RBC % Seg Neutrophils # Seg Neutrophils # Man 20.8 H Lymphocytes # (Manual) Monocytes # (Manual) PT INR D-Dimer ABG pH ABG pO2 58.1 L ABG HCO3 ABG O2 Saturation 88.7 L ABG Base Excess ABG Hemoglobin 7.8 L Oxyhemoglobin 86.8 L Sodium Potassium Chloride Carbon Dioxide BUN Creatinine Glucose POC Glucose 118 H Lactic Acid Calcium Magnesium Iron TIBC Ferritin AST ALT Lactate Dehydrogenase Troponin T C-Reactive Protein Total Protein Albumin Cholesterol LDL Cholesterol Direct HDL Cholesterol Urine WBC (Auto) Vancomycin Trough Coronavirus (PCR) Crossmatch 07/14/19 07/14/19 07/14/19 04:40 05:38 05:45 WBC RBC Hgb Hct MCV MCH MCHC RDW Plt Count Lymph % (Auto) [place] % (Auto) Lymph # [place] # Baso # Seg Neutrophils % Seg Neuts % (Manual) Lymphocytes % (Manual) Monocytes % (Manual) Nucleated RBC % Seg Neutrophils # Seg Neutrophils # Man Lymphocytes # (Manual) Monocytes # (Manual) PT INR D-Dimer ABG pH 7.230 L ABG pO2 72.1 L ABG HCO3 ABG O2 Saturation 89.3 L ABG Base Excess -2.7 L ABG Hemoglobin 6.7 L Oxyhemoglobin 87.7 L Sodium Potassium Chloride 107.4 H Carbon Dioxide BUN 45 H Creatinine Glucose 101 H POC Glucose 154 H Lactic Acid Calcium Magnesium Iron TIBC Ferritin AST ALT Lactate Dehydrogenase Troponin T C-Reactive Protein Total Protein Albumin Cholesterol LDL Cholesterol Direct HDL Cholesterol Urine WBC (Auto) Vancomycin Trough Coronavirus (PCR) Crossmatch 07/14/19 07/14/19 07/14/19 12:25 18:20 19:01 WBC 22.4 H RBC 2.70 L Hgb 7.5 L Hct 23.3 L MCV MCH MCHC RDW 19.5 H Plt Count Lymph % (Auto) [place] % (Auto) Lymph # [place] # Baso # Seg Neutrophils % Seg Neuts % (Manual) Lymphocytes % (Manual) Monocytes % (Manual) Nucleated RBC % Seg Neutrophils # Seg Neutrophils # Man Lymphocytes # (Manual) Monocytes # (Manual) PT INR D-Dimer ABG pH ABG pO2 ABG HCO3 ABG O2 Saturation ABG Base Excess ABG Hemoglobin Oxyhemoglobin Sodium Potassium Chloride Carbon Dioxide BUN Creatinine Glucose POC Glucose 136 H 131 H Lactic Acid Calcium Magnesium Iron TIBC Ferritin AST ALT Lactate Dehydrogenase Troponin T C-Reactive Protein Total Protein Albumin Cholesterol LDL Cholesterol Direct HDL Cholesterol Urine WBC (Auto) Vancomycin Trough Coronavirus (PCR) Crossmatch 07/15/19 07/15/19 07/15/19 00:17 04:35 05:18 WBC 20.6 H RBC 2.41 L Hgb 6.8 L Hct 20.7 L MCV MCH MCHC RDW 20.2 H Plt Count Lymph % (Auto) [place] % (Auto) Lymph # [place] # Baso # Seg Neutrophils % Seg Neuts % (Manual) 92.0 H Lymphocytes % (Manual) 5.0 L Monocytes % (Manual) Nucleated RBC % Seg Neutrophils # Seg Neutrophils # Man 19.0 H Lymphocytes # (Manual) 1.0 L Monocytes # (Manual) PT INR D-Dimer ABG pH 7.342 L ABG pO2 ABG HCO3 ABG O2 Saturation ABG Base Excess -3.1 L ABG Hemoglobin 7.2 L Oxyhemoglobin 94.9 L Sodium Potassium Chloride Carbon Dioxide BUN Creatinine Glucose POC Glucose 116 H Lactic Acid Calcium Magnesium Iron TIBC Ferritin AST ALT Lactate Dehydrogenase Troponin T C-Reactive Protein Total Protein Albumin Cholesterol LDL Cholesterol Direct HDL Cholesterol Urine WBC (Auto) Vancomycin Trough Coronavirus (PCR) Crossmatch 07/15/19 07/15/19 07/15/19 05:18 05:57 11:28 WBC RBC Hgb Hct MCV MCH MCHC RDW Plt Count Lymph % (Auto) [place] % (Auto) Lymph # [place] # Baso # Seg Neutrophils % Seg Neuts % (Manual) Lymphocytes % (Manual) Monocytes % (Manual) Nucleated RBC % Seg Neutrophils # Seg Neutrophils # Man Lymphocytes # (Manual) Monocytes # (Manual) PT INR D-Dimer ABG pH ABG pO2 ABG HCO3 ABG O2 Saturation ABG Base Excess ABG Hemoglobin Oxyhemoglobin Sodium Potassium Chloride Carbon Dioxide 20 L BUN 59 H Creatinine Glucose 140 H POC Glucose 139 H 117 H Lactic Acid Calcium Magnesium Iron TIBC Ferritin AST ALT Lactate Dehydrogenase Troponin T C-Reactive Protein Total Protein Albumin Cholesterol LDL Cholesterol Direct HDL Cholesterol Urine WBC (Auto) Vancomycin Trough Coronavirus (PCR) Crossmatch 07/15/19 07/16/19 07/16/19 18:13 00:06 03:43 WBC RBC Hgb Hct MCV MCH MCHC RDW Plt Count Lymph % (Auto) [place] % (Auto) Lymph # [place] # Baso # Seg Neutrophils % Seg Neuts % (Manual) Lymphocytes % (Manual) Monocytes % (Manual) Nucleated RBC % Seg Neutrophils # Seg Neutrophils # Man Lymphocytes # (Manual) Monocytes # (Manual) PT INR D-Dimer ABG pH 7.344 L ABG pO2 68.6 L ABG HCO3 ABG O2 Saturation ABG Base Excess -3.5 L ABG Hemoglobin 6.1 L Oxyhemoglobin 93.3 L Sodium Potassium Chloride Carbon Dioxide BUN Creatinine Glucose POC Glucose 114 H 119 H Lactic Acid Calcium Magnesium Iron TIBC Ferritin AST ALT Lactate Dehydrogenase Troponin T C-Reactive Protein Total Protein Albumin Cholesterol LDL Cholesterol Direct HDL Cholesterol Urine WBC (Auto) Vancomycin Trough Coronavirus (PCR) Crossmatch 07/16/19 07/16/19 07/16/19 04:41 04:41 12:09 WBC 19.6 H RBC 2.81 L Hgb 7.7 L Hct 24.0 L MCV MCH 27 L MCHC RDW 19.4 H Plt Count 514 H Lymph % (Auto) 6.7 L [place] % (Auto) Lymph # [place] # 1.0 H Baso # Seg Neutrophils % 87.0 H Seg Neuts % (Manual) Lymphocytes % (Manual) Monocytes % (Manual) Nucleated RBC % Seg Neutrophils # 17.0 H Seg Neutrophils # Man Lymphocytes # (Manual) Monocytes # (Manual) PT INR D-Dimer ABG pH ABG pO2 ABG HCO3 ABG O2 Saturation ABG Base Excess ABG Hemoglobin Oxyhemoglobin Sodium Potassium 5.9 H Chloride Carbon Dioxide 21 L BUN 73 H Creatinine 2.0 H Glucose POC Glucose 141 H Lactic Acid Calcium Magnesium Iron TIBC Ferritin AST ALT Lactate Dehydrogenase Troponin T C-Reactive Protein Total Protein Albumin Cholesterol LDL Cholesterol Direct HDL Cholesterol Urine WBC (Auto) Vancomycin Trough Coronavirus (PCR) Crossmatch 07/16/19 07/16/19 07/17/19 16:19 17:45 00:16 WBC RBC Hgb Hct MCV MCH MCHC RDW Plt Count Lymph % (Auto) [place] % (Auto) Lymph # [place] # Baso # Seg Neutrophils % Seg Neuts % (Manual) Lymphocytes % (Manual) Monocytes % (Manual) Nucleated RBC % Seg Neutrophils # Seg Neutrophils # Man Lymphocytes # (Manual) Monocytes # (Manual) PT INR D-Dimer ABG pH ABG pO2 ABG HCO3 ABG O2 Saturation ABG Base Excess ABG Hemoglobin Oxyhemoglobin Sodium Potassium 5.1 H Chloride Carbon Dioxide 20 L BUN 72 H Creatinine 1.7 H Glucose 128 H POC Glucose 181 H 164 H Lactic Acid Calcium Magnesium Iron TIBC Ferritin AST ALT Lactate Dehydrogenase Troponin T C-Reactive Protein Total Protein Albumin Cholesterol LDL Cholesterol Direct HDL Cholesterol Urine WBC (Auto) Vancomycin Trough Coronavirus (PCR) Crossmatch 07/17/19 07/17/19 07/17/19 04:20 04:39 04:39 WBC 16.1 H RBC 2.92 L Hgb 8.0 L Hct 25.5 L MCV MCH MCHC 31 L RDW 19.7 H Plt Count 564 H Lymph % (Auto) 3.6 L [place] % (Auto) 7.4 H Lymph # 0.6 L [place] # 1.2 H Baso # Seg Neutrophils % 87.5 H Seg Neuts % (Manual) Lymphocytes % (Manual) Monocytes % (Manual) Nucleated RBC % Seg Neutrophils # 14.1 H Seg Neutrophils # Man Lymphocytes # (Manual) Monocytes # (Manual) PT INR D-Dimer ABG pH 7.231 L ABG pO2 95.3 H ABG HCO3 ABG O2 Saturation ABG Base Excess -5.0 L ABG Hemoglobin 7.9 L Oxyhemoglobin 94.8 L Sodium Potassium Chloride 107.8 H Carbon Dioxide 21 L BUN 68 H Creatinine Glucose POC Glucose Lactic Acid Calcium Magnesium Iron TIBC Ferritin AST ALT Lactate Dehydrogenase Troponin T C-Reactive Protein Total Protein Albumin Cholesterol LDL Cholesterol Direct HDL Cholesterol Urine WBC (Auto) Vancomycin Trough Coronavirus (PCR) Crossmatch 07/17/19 07/17/19 07/17/19 05:28 12:11 18:48 WBC RBC Hgb Hct MCV MCH MCHC RDW Plt Count Lymph % (Auto) [place] % (Auto) Lymph # [place] # Baso # Seg Neutrophils % Seg Neuts % (Manual) Lymphocytes % (Manual) Monocytes % (Manual) Nucleated RBC % Seg Neutrophils # Seg Neutrophils # Man Lymphocytes # (Manual) Monocytes # (Manual) PT INR D-Dimer ABG pH ABG pO2 ABG HCO3 ABG O2 Saturation ABG Base Excess ABG Hemoglobin Oxyhemoglobin Sodium Potassium Chloride Carbon Dioxide BUN Creatinine Glucose POC Glucose 121 H 125 H 174 H Lactic Acid Calcium Magnesium Iron TIBC Ferritin AST ALT Lactate Dehydrogenase Troponin T C-Reactive Protein Total Protein Albumin Cholesterol LDL Cholesterol Direct HDL Cholesterol Urine WBC (Auto) Vancomycin Trough Coronavirus (PCR) Crossmatch 07/17/19 07/17/19 07/18/19 19:55 23:57 02:30 WBC RBC Hgb Hct MCV MCH MCHC RDW Plt Count Lymph % (Auto) [place] % (Auto) Lymph # [place] # Baso # Seg Neutrophils % Seg Neuts % (Manual) Lymphocytes % (Manual) Monocytes % (Manual) Nucleated RBC % Seg Neutrophils # Seg Neutrophils # Man Lymphocytes # (Manual) Monocytes # (Manual) PT INR D-Dimer ABG pH 7.344 L 7.294 L ABG pO2 78.5 L 119.2 H ABG HCO3 ABG O2 Saturation ABG Base Excess -3.3 L -2.6 L ABG Hemoglobin 8.6 L 8.1 L Oxyhemoglobin 94.8 L Sodium Potassium Chloride Carbon Dioxide BUN Creatinine Glucose POC Glucose 148 H Lactic Acid Calcium Magnesium Iron TIBC Ferritin AST ALT Lactate Dehydrogenase Troponin T C-Reactive Protein Total Protein Albumin Cholesterol LDL Cholesterol Direct HDL Cholesterol Urine WBC (Auto) Vancomycin Trough Coronavirus (PCR) Crossmatch 07/18/19 07/18/19 07/18/19 04:49 05:22 05:22 WBC 15.9 H RBC 3.00 L Hgb 8.1 L Hct 26.0 L MCV MCH 27 L MCHC 31 L RDW 19.4 H Plt Count 733 H Lymph % (Auto) 6.3 L [place] % (Auto) 7.4 H Lymph # 1.0 L [place] # 1.2 H Baso # 0.2 H Seg Neutrophils % 83.8 H Seg Neuts % (Manual) Lymphocytes % (Manual) Monocytes % (Manual) Nucleated RBC % Seg Neutrophils # 13.3 H Seg Neutrophils # Man Lymphocytes # (Manual) Monocytes # (Manual) PT INR D-Dimer ABG pH ABG pO2 ABG HCO3 ABG O2 Saturation ABG Base Excess ABG Hemoglobin Oxyhemoglobin Sodium Potassium Chloride 110.6 H Carbon Dioxide BUN 61 H Creatinine Glucose 109 H POC Glucose 116 H Lactic Acid Calcium Magnesium Iron TIBC Ferritin AST ALT Lactate Dehydrogenase Troponin T C-Reactive Protein Total Protein Albumin Cholesterol LDL Cholesterol Direct HDL Cholesterol Urine WBC (Auto) Vancomycin Trough Coronavirus (PCR) Crossmatch 07/18/19 07/18/19 07/18/19 12:23 18:06 22:20 WBC RBC Hgb Hct MCV MCH MCHC RDW Plt Count Lymph % (Auto) [place] % (Auto) Lymph # [place] # Baso # Seg Neutrophils % Seg Neuts % (Manual) Lymphocytes % (Manual) Monocytes % (Manual) Nucleated RBC % Seg Neutrophils # Seg Neutrophils # Man Lymphocytes # (Manual) Monocytes # (Manual) PT INR D-Dimer ABG pH 7.338 L ABG pO2 135.1 H ABG HCO3 ABG O2 Saturation ABG Base Excess ABG Hemoglobin 9.2 L Oxyhemoglobin Sodium Potassium Chloride Carbon Dioxide BUN Creatinine Glucose POC Glucose 114 H 113 H Lactic Acid Calcium Magnesium Iron TIBC Ferritin AST ALT Lactate Dehydrogenase Troponin T C-Reactive Protein Total Protein Albumin Cholesterol LDL Cholesterol Direct HDL Cholesterol Urine WBC (Auto) Vancomycin Trough Coronavirus (PCR) Crossmatch 07/18/19 07/19/19 07/19/19 23:33 03:45 05:18 WBC RBC Hgb Hct MCV MCH MCHC RDW Plt Count Lymph % (Auto) [place] % (Auto) Lymph # [place] # Baso # Seg Neutrophils % Seg Neuts % (Manual) Lymphocytes % (Manual) Monocytes % (Manual) Nucleated RBC % Seg Neutrophils # Seg Neutrophils # Man Lymphocytes # (Manual) Monocytes # (Manual) PT INR D-Dimer ABG pH 7.342 L ABG pO2 95.0 H ABG HCO3 ABG O2 Saturation ABG Base Excess ABG Hemoglobin 8.5 L Oxyhemoglobin Sodium Potassium Chloride Carbon Dioxide BUN Creatinine Glucose POC Glucose 125 H 111 H Lactic Acid Calcium Magnesium Iron TIBC Ferritin AST ALT Lactate Dehydrogenase Troponin T C-Reactive Protein Total Protein Albumin Cholesterol LDL Cholesterol Direct HDL Cholesterol Urine WBC (Auto) Vancomycin Trough Coronavirus (PCR) Crossmatch 07/19/19 07/19/19 07/19/19 08:45 08:45 11:47 WBC 15.9 H RBC 3.31 L Hgb 9.1 L Hct 28.4 L MCV MCH 27 L MCHC RDW 19.1 H Plt Count 858 H Lymph % (Auto) 4.9 L [place] % (Auto) 8.1 H Lymph # 0.8 L [place] # 1.3 H Baso # Seg Neutrophils % 85.5 H Seg Neuts % (Manual) Lymphocytes % (Manual) Monocytes % (Manual) Nucleated RBC % Seg Neutrophils # 13.6 H Seg Neutrophils # Man Lymphocytes # (Manual) Monocytes # (Manual) PT INR D-Dimer ABG pH ABG pO2 ABG HCO3 ABG O2 Saturation ABG Base Excess ABG Hemoglobin Oxyhemoglobin Sodium Potassium Chloride 111.6 H Carbon Dioxide BUN 50 H Creatinine 0.7 L Glucose 118 H POC Glucose 114 H Lactic Acid Calcium Magnesium Iron TIBC Ferritin AST ALT Lactate Dehydrogenase Troponin T C-Reactive Protein Total Protein Albumin Cholesterol LDL Cholesterol Direct HDL Cholesterol Urine WBC (Auto) Vancomycin Trough Coronavirus (PCR) Crossmatch 07/19/19 07/19/19 07/20/19 18:25 23:44 04:39 WBC RBC Hgb Hct MCV MCH MCHC RDW Plt Count Lymph % (Auto) [place] % (Auto) Lymph # [place] # Baso # Seg Neutrophils % Seg Neuts % (Manual) Lymphocytes % (Manual) Monocytes % (Manual) Nucleated RBC % Seg Neutrophils # Seg Neutrophils # Man Lymphocytes # (Manual) Monocytes # (Manual) PT INR D-Dimer ABG pH ABG pO2 ABG HCO3 ABG O2 Saturation ABG Base Excess ABG Hemoglobin Oxyhemoglobin Sodium Potassium Chloride 110.3 H Carbon Dioxide BUN 44 H Creatinine 0.6 L Glucose 120 H POC Glucose 115 H 117 H Lactic Acid Calcium Magnesium Iron TIBC Ferritin AST ALT Lactate Dehydrogenase Troponin T C-Reactive Protein Total Protein Albumin Cholesterol LDL Cholesterol Direct HDL Cholesterol Urine WBC (Auto) Vancomycin Trough Coronavirus (PCR) Crossmatch 07/20/19 07/21/19 07/21/19 05:30 11:59 17:40 WBC RBC Hgb Hct MCV MCH MCHC RDW Plt Count Lymph % (Auto) [place] % (Auto) Lymph # [place] # Baso # Seg Neutrophils % Seg Neuts % (Manual) Lymphocytes % (Manual) Monocytes % (Manual) Nucleated RBC % Seg Neutrophils # Seg Neutrophils # Man Lymphocytes # (Manual) Monocytes # (Manual) PT INR D-Dimer ABG pH ABG pO2 ABG HCO3 ABG O2 Saturation ABG Base Excess ABG Hemoglobin Oxyhemoglobin Sodium Potassium Chloride Carbon Dioxide BUN Creatinine Glucose POC Glucose 131 H 122 H 125 H Lactic Acid Calcium Magnesium Iron TIBC Ferritin AST ALT Lactate Dehydrogenase Troponin T C-Reactive Protein Total Protein Albumin Cholesterol LDL Cholesterol Direct HDL Cholesterol Urine WBC (Auto) Vancomycin Trough Coronavirus (PCR) Crossmatch 07/22/19 07/22/19 07/22/19 05:38 05:38 12:29 WBC 12.6 H RBC 3.19 L Hgb 8.9 L Hct 27.5 L MCV MCH MCHC RDW 18.9 H Plt Count 1101 H* Lymph % (Auto) [place] % (Auto) 12.2 H Lymph # [place] # 1.5 H Baso # Seg Neutrophils % 72.8 H Seg Neuts % (Manual) 76.0 H Lymphocytes % (Manual) 7.0 L Monocytes % (Manual) 14.0 H Nucleated RBC % 1.0 H Seg Neutrophils # 9.2 H Seg Neutrophils # Man 9.6 H Lymphocytes # (Manual) 0.9 L Monocytes # (Manual) 1.8 H PT INR D-Dimer ABG pH ABG pO2 ABG HCO3 ABG O2 Saturation ABG Base Excess ABG Hemoglobin Oxyhemoglobin Sodium Potassium 3.4 L Chloride Carbon Dioxide BUN 29 H Creatinine 0.5 L Glucose POC Glucose 116 H Lactic Acid Calcium Magnesium Iron TIBC Ferritin AST ALT Lactate Dehydrogenase Troponin T C-Reactive Protein Total Protein Albumin Cholesterol LDL Cholesterol Direct HDL Cholesterol Urine WBC (Auto) Vancomycin Trough Coronavirus (PCR) Crossmatch 07/22/19 07/22/19 07/23/19 18:20 23:51 04:52 WBC RBC Hgb Hct MCV MCH MCHC RDW Plt Count Lymph % (Auto) [place] % (Auto) Lymph # [place] # Baso # Seg Neutrophils % Seg Neuts % (Manual) Lymphocytes % (Manual) Monocytes % (Manual) Nucleated RBC % Seg Neutrophils # Seg Neutrophils # Man Lymphocytes # (Manual) Monocytes # (Manual) PT INR D-Dimer ABG pH ABG pO2 ABG HCO3 ABG O2 Saturation ABG Base Excess ABG Hemoglobin Oxyhemoglobin Sodium Potassium Chloride Carbon Dioxide BUN 24 H Creatinine 0.4 L Glucose POC Glucose 107 H 110 H Lactic Acid Calcium Magnesium Iron TIBC Ferritin AST ALT Lactate Dehydrogenase Troponin T C-Reactive Protein Total Protein Albumin Cholesterol LDL Cholesterol Direct HDL Cholesterol Urine WBC (Auto) Vancomycin Trough Coronavirus (PCR) Crossmatch 07/23/19 07/23/19 07/24/19 06:00 23:15 04:40 WBC RBC Hgb Hct MCV MCH MCHC RDW Plt Count Lymph % (Auto) [place] % (Auto) Lymph # [place] # Baso # Seg Neutrophils % Seg Neuts % (Manual) Lymphocytes % (Manual) Monocytes % (Manual) Nucleated RBC % Seg Neutrophils # Seg Neutrophils # Man Lymphocytes # (Manual) Monocytes # (Manual) PT INR D-Dimer ABG pH ABG pO2 73.5 L ABG HCO3 27.0 H 28.5 H ABG O2 Saturation 94.5 L ABG Base Excess ABG Hemoglobin 9.4 L 8.9 L Oxyhemoglobin 94.0 L 92.7 L Sodium Potassium Chloride Carbon Dioxide BUN Creatinine Glucose POC Glucose 117 H Lactic Acid Calcium Magnesium Iron TIBC Ferritin AST ALT Lactate Dehydrogenase Troponin T C-Reactive Protein Total Protein Albumin Cholesterol LDL Cholesterol Direct HDL Cholesterol Urine WBC (Auto) Vancomycin Trough Coronavirus (PCR) Crossmatch 07/24/19 07/24/19 07/25/19 05:25 12:06 00:16 WBC RBC Hgb Hct MCV MCH MCHC RDW Plt Count Lymph % (Auto) [place] % (Auto) Lymph # [place] # Baso # Seg Neutrophils % Seg Neuts % (Manual) Lymphocytes % (Manual) Monocytes % (Manual) Nucleated RBC % Seg Neutrophils # Seg Neutrophils # Man Lymphocytes # (Manual) Monocytes # (Manual) PT INR D-Dimer ABG pH ABG pO2 ABG HCO3 ABG O2 Saturation ABG Base Excess ABG Hemoglobin Oxyhemoglobin Sodium Potassium Chloride Carbon Dioxide BUN Creatinine Glucose POC Glucose 114 H 108 H 106 H Lactic Acid Calcium Magnesium Iron TIBC Ferritin AST ALT Lactate Dehydrogenase Troponin T C-Reactive Protein Total Protein Albumin Cholesterol LDL Cholesterol Direct HDL Cholesterol Urine WBC (Auto) Vancomycin Trough Coronavirus (PCR) Crossmatch 07/25/19 07/25/19 07/25/19 05:14 05:14 05:17 WBC 17.8 H RBC 3.32 L Hgb 9.2 L Hct 28.6 L MCV MCH MCHC RDW 19.9 H Plt Count 994 H Lymph % (Auto) [place] % (Auto) Lymph # [place] # Baso # Seg Neutrophils % Seg Neuts % (Manual) 82.0 H Lymphocytes % (Manual) 5.0 L Monocytes % (Manual) Nucleated RBC % Seg Neutrophils # Seg Neutrophils # Man 14.6 H Lymphocytes # (Manual) 0.9 L Monocytes # (Manual) 1.2 H PT INR D-Dimer ABG pH ABG pO2 ABG HCO3 ABG O2 Saturation ABG Base Excess ABG Hemoglobin Oxyhemoglobin Sodium Potassium Chloride Carbon Dioxide BUN Creatinine 0.4 L Glucose 110 H POC Glucose 107 H Lactic Acid Calcium Magnesium Iron TIBC Ferritin AST ALT Lactate Dehydrogenase Troponin T C-Reactive Protein Total Protein Albumin Cholesterol LDL Cholesterol Direct HDL Cholesterol Urine WBC (Auto) Vancomycin Trough Coronavirus (PCR) Crossmatch 07/25/19 07/25/19 07/26/19 11:55 23:49 06:01 WBC RBC Hgb Hct MCV MCH MCHC RDW Plt Count Lymph % (Auto) [place] % (Auto) Lymph # [place] # Baso # Seg Neutrophils % Seg Neuts % (Manual) Lymphocytes % (Manual) Monocytes % (Manual) Nucleated RBC % Seg Neutrophils # Seg Neutrophils # Man Lymphocytes # (Manual) Monocytes # (Manual) PT INR D-Dimer ABG pH ABG pO2 ABG HCO3 ABG O2 Saturation ABG Base Excess ABG Hemoglobin Oxyhemoglobin Sodium Potassium Chloride Carbon Dioxide BUN Creatinine Glucose POC Glucose 123 H 118 H 106 H Lactic Acid Calcium Magnesium Iron TIBC Ferritin AST ALT Lactate Dehydrogenase Troponin T C-Reactive Protein Total Protein Albumin Cholesterol LDL Cholesterol Direct HDL Cholesterol Urine WBC (Auto) Vancomycin Trough Coronavirus (PCR) Crossmatch 07/26/19 07/27/19 07/27/19 17:02 00:28 05:16 WBC RBC Hgb Hct MCV MCH MCHC RDW Plt Count Lymph % (Auto) [place] % (Auto) Lymph # [place] # Baso # Seg Neutrophils % Seg Neuts % (Manual) Lymphocytes % (Manual) Monocytes % (Manual) Nucleated RBC % Seg Neutrophils # Seg Neutrophils # Man Lymphocytes # (Manual) Monocytes # (Manual) PT INR D-Dimer ABG pH ABG pO2 63.4 L ABG HCO3 31.3 H ABG O2 Saturation 92.7 L ABG Base Excess 6.3 H ABG Hemoglobin 7.6 L Oxyhemoglobin 90.9 L Sodium Potassium Chloride Carbon Dioxide BUN Creatinine Glucose POC Glucose 116 H 158 H Lactic Acid Calcium Magnesium Iron TIBC Ferritin AST ALT Lactate Dehydrogenase Troponin T C-Reactive Protein Total Protein Albumin Cholesterol LDL Cholesterol Direct HDL Cholesterol Urine WBC (Auto) Vancomycin Trough Coronavirus (PCR) Crossmatch 07/28/19 07/28/19 07/28/19 10:13 10:13 23:54 WBC 18.5 H RBC 3.20 L Hgb 8.8 L Hct 26.8 L MCV MCH 27 L MCHC RDW 19.9 H Plt Count 730 H Lymph % (Auto) [place] % (Auto) Lymph # [place] # Baso # Seg Neutrophils % Seg Neuts % (Manual) Lymphocytes % (Manual) Monocytes % (Manual) Nucleated RBC % Seg Neutrophils # Seg Neutrophils # Man Lymphocytes # (Manual) Monocytes # (Manual) PT INR D-Dimer ABG pH ABG pO2 ABG HCO3 ABG O2 Saturation ABG Base Excess ABG Hemoglobin Oxyhemoglobin Sodium Potassium 3.2 L Chloride 97.5 L Carbon Dioxide 31 H BUN Creatinine 0.5 L Glucose POC Glucose 120 H Lactic Acid Calcium Magnesium Iron TIBC Ferritin AST ALT Lactate Dehydrogenase Troponin T C-Reactive Protein Total Protein Albumin Cholesterol LDL Cholesterol Direct HDL Cholesterol Urine WBC (Auto) Vancomycin Trough Coronavirus (PCR) Crossmatch 07/29/19 11:57 WBC RBC Hgb Hct MCV MCH MCHC RDW Plt Count Lymph % (Auto) [place] % (Auto) Lymph # [place] # Baso # Seg Neutrophils % Seg Neuts % (Manual) Lymphocytes % (Manual) Monocytes % (Manual) Nucleated RBC % Seg Neutrophils # Seg Neutrophils # Man Lymphocytes # (Manual) Monocytes # (Manual) PT INR D-Dimer ABG pH ABG pO2 ABG HCO3 ABG O2 Saturation ABG Base Excess ABG Hemoglobin Oxyhemoglobin Sodium Potassium Chloride Carbon Dioxide BUN Creatinine Glucose POC Glucose Lactic Acid Calcium Magnesium Iron TIBC Ferritin AST ALT Lactate Dehydrogenase Troponin T C-Reactive Protein Total Protein Albumin Cholesterol LDL Cholesterol Direct HDL Cholesterol Urine WBC (Auto) 63.0 H Vancomycin Trough Coronavirus (PCR) Crossmatch Allied health notes reviewed: nursing
[2019-07-30 05:31] LABS: Hematocrit 26.3 % (35.5-45.6); Hemoglobin 8.5 gm/dl (11.8-15.2); Mean Corpuscular HGB Conc 32 % (32-34); Mean Corpuscular Volume 84 fl (84-94); Platelet Count 550 K/mm3 (140-440); Red Blood Count 3.12 M/mm3 (3.65-5.03)
[2019-07-30 05:54] LABS: BUN/Creatinine Ratio 28; Blood Urea Nitrogen 14 mg/dL (9-20); Calcium 8.5 mg/dL (8.4-10.2); Hemolysis Index 5
[2019-07-30 06:00] LABS: Red Cell Distribution Width 20.2 % (13.2-15.2)
[2019-07-30] MEDS: CEFEPIME/NS 1 GM/100 ML 1 GM/100 ML BAG IV SCH ×3 (06:11→22:17)
[2019-07-30] MEDS: SODIUM HYPOCHLORITE, DAKIN'S 1/2 STRENGTH (0.25%) 473 ML TOPICAL SOLN TP SCH ×3 (06:12→22:17)
[2019-07-30] MEDS: INSULIN LISPRO 100 UNIT/ML SUB-Q SCH ×3 (06:12→20:14)
[2019-07-30] MEDS: POTASSIUM CHLORIDE 20 MEQ PACKET FEEDTUBE SCH ×3 (08:35→20:31)
--- NOTE | 2019-07-30 09:57 | Progress Note ---
Assessment and Plan Assessment and plan: 69-year-old male patient with PMH of CVA with RHP, HTN, DM2, SCZ, Dementia, Alcohol use D/o, Seizure D/O, presents to the emergency department via EMS from home with progressive SOB and impending espiratory failure with an unresponsive . PT was intubated was admitted through emergency room to ICU treated for sepsis, b/l PNA, acute respiratory failure received antibiotics. Patient was tested positive for COVID19. Evaluated by ID , received antibiotics Plaquenil, and inflammatory markers were checked and followed. Patient was hypotensive requiring Levophed, continues to be hypotensive currently on Levophed, unable to wean remains intubated on ventilatory support, critically ill, DNR status howev er family wants full treatment. --COVid-19 infection with pneumonia with severe sepsis Received Plaquenil and cefepime, ID following --Septic shock: was on Levophed Now off Levophed -- Acute respiratory Failure with Hypoxia Due to bilateral PNA with COVID 19 infection. On ventilatory support, unable to wean Pulmonary critical following --COPD with exacerbation Likely due to COVID-19 pneumonia Continue scheduled nebs --Anemia, Microcytic persistent s/p total 3 unit of PRBC, today Hb today 9.1 --Pressure Ulcers: POA buttocks, right lateral foot area wound and supportive care --Hyponatremia, resolved --DM type 2: Accu-Chek SCC tube feeding, insulin as needed --h/o HTN Essential, now hypotensive On Levophed --Seizure D/o/CVA/immobility/BIpolar D/o/SCZ Seizure precautions, antiepileptic medications --Severe PCM, TF supportive care, dietary following UTI started on Cefepime patient is DNR- Called and verified information Very poor prognosis, Recommend hospice 07/04: COVID +ve, start on plaquinil, called no answer 07/05: transfuse one unit PRBC, Hb dropped to ~6, called and updated 07/06; H&H stable, serum chemistry improved. On mechanical ventilation with high inflammatory markers. Continue Plaquenil and empiric antibiotics. ID following, prognosis remains guarded and extremely poor. 07/07: On mechanical ventilation with high inflammatory markers. Continue Plaquenil and empiric antibiotics. ID following, prognosis remains guarded and extremely poor. 07/08: Called today and verified the CODE STATUS. Patient remains DNR. He is still intubated, with poor prognosis. Continue to follow inflammatory markers. 07/09 wean off from vent as tolerated, completed empiric antibiotic and Plaquenil 07/10 wean off from vent as tolerated. poor prognosis 07/11 hb 6.7 today, transfuse one PRBC. wean off from vent as tolerated. poor prognosis 07/12 remains critically on vent. Hb 6.9 07/13 Hb dropped to 6.6, transfuse 1 unit of PRBC, remains on vent critically ill Hypotensive, fluid bolus, if no improvement start Levophed 07/14; remains anemic with hemoglobin of 6.8, received total 3 units of PRBC Additional 1 unit of PRBC today, stool for occult blood to rule out GI causes Started back on Levophed due to hypotension 07/15; patient remains critically ill, hypotensive on Levophed 07/16: Today remains intubated on vent, persistent hypotension on Levophed 07/17; clinically no change, pressor dependent[on Levophed] DNR status 07/18: Patient remains hypotensive requiring Levophed, intubated on vent Unable to wean, critically ill. DNR 07/20/2019 Patient remains hypotensive requiring Levophed, intubated on vent. Patient currently with AC mode ventilation, rate 20, tidal volume 500, FiO2 40% and PEEP 6. Patient is a poor prognosis and apparently was on hospice recently. 07/21/2019. Patient with PEG tube that was clogged yesterday. surgery evaluated the patient and noted Very long PEG tubing with thick material inside. The entire tube was stripped and a large amount of formed tube feed was expressed. The tube was then flushed with sprite and flushed easily. Tube clamped. Patient currently with AC mode ventilation, rate 20, tidal volume 500, FiO2 40% and PEEP 6. Patient is a poor prognosis and apparently was on hospice recently. 07/22/2019. Patient currently with AC mode ventilation, rate 20, tidal volume 500, FiO2 30% and PEEP 6. Patient on sedation with fentanyl drip. Continue Levophed to maintain MAP greater than 65. Patient is a poor prognosis and apparently was on hospice recently. 07/23/2019. Patient currently with AC mode ventilation, rate 20, tidal volume 500, FiO2 30% and PEEP 6. Patient on sedation with fentanyl drip. Continue Levophed to maintain MAP greater than 65. Patient is a poor prognosis and apparently was on hospice recently. 07/24/2019 Patient with Covid-19 infection with pneumonia, acute respiratory failure, intubated on ventilator. No more fever. Continue current management. 07/25/2019 Patient with Covid-19 infection with pneumonia, acute respiratory failure, intubated on ventilator. fever is now resolved. Sedated with propofol 07/26/2019 Patient with covid-19 infection. Still intubated, on vent. 07/27/2019 Patient with Covid-19. he is still critically ill. patient has DNR order. 07/28/2019 Patient with Covid-19 infection. Will repeat labs today. Surgeon consulted for tracheostomy. 07/29/2019 Patient with Covid-19. hypokalemia yesterday, replaced. Will recheck labs in am. 07/30/2019 patient with Covid-19 infection with acute respiratory failure. He is intubated on ventilator. has hypokalemia. replace and recheck BMP in am. patient has UTI, started on Cefepime. The high probability of a clinically significant, sudden or life threatening deterioration of the [respiratory, CVS, INDOOR LANDSCAPE ARCHITECT] system(s) required my full and direct attention, intervention and personal management. The aggregate critical care time was [33] minutes. This time is in addition to time spent performing reported procedures but includes the following: [x] Data Review and interpretation [x] Patient assessment and monitoring of vital signs [x] Documentation [x] Medication orders and management History Interval history: Patient with Covid-19 infection Still intubated Fever Hospitalist Physical - Physical exam Narrative exam: GEN: Not in acute distress, intubated,obese HEENT: Normocephalic, atraumatic, Neck: supple, No JVD Lungs: Bilateral crackles, heart;S1 and S2 reg, no murmurs, rubs or gallop Abd:soft, non tender, non distended, normal bowel sounds,PEG tube Ext: No edema, no clubbing, no cyanosis, Neuro: Intubated, on ventilator,sedated - Constitutional Vitals: Temp Pulse Resp BP Pulse Ox 99.2 F 122 H 20 145/74 94 07/30/19 08:00 07/30/19 08:30 07/30/19 08:30 07/30/19 08:30 07/30/19 08:30 General appearance: Present: no acute distress, well-nourished, other (Orally intubated on vent) Results - Labs CBC & Chem 7: 07/30/19 04:35 07/30/19 04:35 Labs: Laboratory Last Values WBC 24.3 K/mm3 (4.5-11.0) H 07/30/19 04:35 RBC 3.12 M/mm3 (3.65-5.03) L 07/30/19 04:35 Hgb 8.5 gm/dl (11.8-15.2) L 07/30/19 04:35 Hct 26.3 % (35.5-45.6) L 07/30/19 04:35 MCV 84 fl (84-94) 07/30/19 04:35 MCH 27 pg (28-32) L 07/30/19 04:35 MCHC 32 % (32-34) 07/30/19 04:35 RDW 20.2 % (13.2-15.2) H 07/30/19 04:35 Plt Count 550 K/mm3 (140-440) H 07/30/19 04:35 Lymph % (Auto) 4.9 % (13.4-35.0) L 07/19/19 08:45 [place] % (Auto) 12.2 % (0.0-7.3) H 07/22/19 05:38 Eos % (Auto) 1.0 % (0.0-4.3) 07/19/19 08:45 Baso % (Auto) 0.5 % (0.0-1.8) 07/19/19 08:45 Lymph # 0.8 K/mm3 (1.2-5.4) L 07/19/19 08:45 [place] # 1.5 K/mm3 (0.0-0.8) H 07/22/19 05:38 Eos # 0.2 K/mm3 (0.0-0.4) 07/19/19 08:45 Baso # 0.1 K/mm3 (0.0-0.1) 07/19/19 08:45 Add Manual Diff Complete 07/25/19 05:14 Total Counted 100 07/25/19 05:14 Seg Neutrophils % 72.8 % (40.0-70.0) H 07/22/19 05:38 Seg Neuts % (Manual) 82.0 % (40.0-70.0) H 07/25/19 05:14 Band Neutrophils % 3.0 % 07/25/19 05:14 Lymphocytes % (Manual) 5.0 % (13.4-35.0) L 07/25/19 05:14 Reactive Lymphs % (Man) 0 % 07/25/19 05:14 Monocytes % (Manual) 7.0 % (0.0-7.3) 07/25/19 05:14 Eosinophils % (Manual) 2.0 % (0.0-4.3) 07/25/19 05:14 Basophils % (Manual) 0 % (0.0-1.8) 07/25/19 05:14 Metamyelocytes % 1.0 % 07/25/19 05:14 Myelocytes % 0 % 07/25/19 05:14 Promyelocytes % 0 % 07/25/19 05:14 Blast Cells % 0 % 07/25/19 05:14 Nucleated RBC % Not Reportable 07/25/19 05:14 Seg Neutrophils # 9.2 K/mm3 (1.8-7.7) H 07/22/19 05:38 Seg Neutrophils # Man 14.6 K/mm3 (1.8-7.7) H 07/25/19 05:14 Band Neutrophils # 0.5 K/mm3 07/25/19 05:14 Lymphocytes # (Manual) 0.9 K/mm3 (1.2-5.4) L 07/25/19 05:14 Abs React Lymphs (Man) 0.0 K/mm3 07/25/19 05:14 Monocytes # (Manual) 1.2 K/mm3 (0.0-0.8) H 07/25/19 05:14 Eosinophils # (Manual) 0.4 K/mm3 (0.0-0.4) 07/25/19 05:14 Basophils # (Manual) 0.0 K/mm3 (0.0-0.1) 07/25/19 05:14 Metamyelocytes # 0.2 K/mm3 07/25/19 05:14 Myelocytes # 0.0 K/mm3 07/25/19 05:14 Promyelocytes # 0.0 K/mm3 07/25/19 05:14 Blast Cells # 0.0 K/mm3 07/25/19 05:14 WBC Morphology Not Reportable 07/25/19 05:14 Hypersegmented Neuts Not Reportable 07/25/19 05:14 Hyposegmented Neuts Not Reportable 07/25/19 05:14 Hypogranular Neuts Not Reportable 07/25/19 05:14 Smudge Cells Not Reportable 07/25/19 05:14 Toxic Granulation Not Reportable 07/25/19 05:14 Toxic Vacuolation Not Reportable 07/25/19 05:14 Dohle Bodies Not Reportable 07/25/19 05:14 Pelger-Huet Anomaly Not Reportable 07/25/19 05:14 Mendy Rods Not Reportable 07/25/19 05:14 Platelet Estimate Consistent w auto 07/25/19 05:14 Clumped Platelets Not Reportable 07/25/19 05:14 Plt Clumps, EDTA Not Reportable 07/25/19 05:14 Large Platelets Not Reportable 07/25/19 05:14 Giant Platelets Not Reportable 07/25/19 05:14 Platelet Satelliting Not Reportable 07/25/19 05:14 Plt Morphology Comment Not Reportable 07/25/19 05:14 RBC Morphology Not Reportable 07/25/19 05:14 Dimorphic RBCs Not Reportable 07/25/19 05:14 Polychromasia Rare 07/25/19 05:14 Hypochromasia Rare 07/25/19 05:14 Poikilocytosis Not Reportable 07/25/19 05:14 Anisocytosis Few 07/25/19 05:14 Microcytosis Not Reportable 07/25/19 05:14 Macrocytosis Not Reportable 07/25/19 05:14 Spherocytes Not Reportable 07/25/19 05:14 Pappenheimer Bodies Not Reportable 07/25/19 05:14 Sickle Cells Not Reportable 07/25/19 05:14 Target Cells Not Reportable 07/25/19 05:14 Tear Drop Cells Not Reportable 07/25/19 05:14 Ovalocytes Not Reportable 07/25/19 05:14 Helmet Cells Not Reportable 07/25/19 05:14 Altman-Greenwald Bodies Not Reportable 07/25/19 05:14 [place] Rings Not Reportable 07/25/19 05:14 Joanne Cells Not Reportable 07/25/19 05:14 Bite Cells Not Reportable 07/25/19 05:14 Crenated Cell Not Reportable 07/25/19 05:14 Elliptocytes Rare 07/25/19 05:14 Acanthocytes (Spur) Not Reportable 07/25/19 05:14 Rouleaux Not Reportable 07/25/19 05:14 Hemoglobin C Crystals Not Reportable 07/25/19 05:14 Schistocytes Not Reportable 07/25/19 05:14 Malaria parasites Not Reportable 07/25/19 05:14 Jeevan Bodies Not Reportable 07/25/19 05:14 Hem Pathologist Commnt No 07/25/19 05:14 PT 16.0 Sec. (12.2-14.9) H 07/03/19 22:20 INR 1.26 (0.87-1.13) H 07/03/19 22:20 D-Dimer 1142.18 ng/mlDDU (0-234) H 07/08/19 00:45 ABG pH 7.430 pH Units (7.350-7.450) 07/27/19 05:16 ABG pCO2 48.2 mm Hg 07/27/19 05:16 ABG pO2 63.4 mm Hg (80.0-90.0) L 07/27/19 05:16 ABG HCO3 31.3 mmol/L (20.0-26.0) H 07/27/19 05:16 ABG O2 Saturation 92.7 % (95.0-99.0) L 07/27/19 05:16 ABG O2 Content 9.8 (0.0-44) 07/27/19 05:16 ABG Base Excess 6.3 mmol/L (-2.0-3.0) H 07/27/19 05:16 ABG Hemoglobin 7.6 gm/dl (14.0-18.0) L 07/27/19 05:16 ABG Carboxyhemoglobin 1.6 % (0.0-5.0) 07/27/19 05:16 ABG Methemoglobin 0.4 % (0.0-1.5) 07/27/19 05:16 Oxyhemoglobin 90.9 % (95.0-99.0) L 07/27/19 05:16 FiO2 25 % 07/27/19 05:16 Sodium 137 mmol/L (137-145) 07/30/19 04:35 Potassium 3.0 mmol/L (3.6-5.0) L 07/30/19 04:35 Chloride 96.3 mmol/L (98-107) L 07/30/19 04:35 Carbon Dioxide 32 mmol/L (22-30) H 07/30/19 04:35 Anion Gap 12 mmol/L 07/30/19 04:35 BUN 14 mg/dL (9-20) 07/30/19 04:35 Creatinine 0.5 mg/dL (0.8-1.5) L 07/30/19 04:35 Estimated GFR > 60 ml/min 07/30/19 04:35 BUN/Creatinine Ratio 28 % 07/30/19 04:35 Glucose 94 mg/dL (75-100) 07/30/19 04:35 POC Glucose 100 (70-105) 07/30/19 05:14 Osmolality 268 Mosm/kg 07/05/19 04:00 Lactic Acid 3.30 mmol/L (0.7-2.0) H* 07/04/19 07:05 Uric Acid 7.2 mg/dL (3.5-7.6) 07/05/19 04:00 Calcium 8.5 mg/dL (8.4-10.2) 07/30/19 04:35 Phosphorus 3.60 mg/dL (2.5-4.5) 07/05/19 04:00 Magnesium 1.80 mg/dL (1.7-2.3) 07/11/19 05:14 Iron 9 ug/dL (49-181) L 07/04/19 07:05 TIBC 97 mcg/dL (250-450) L 07/04/19 07:05 Ferritin 839.0 ng/mL (13.0-400.0) H 07/08/19 00:45 Total Bilirubin 0.20 mg/dL (0.1-1.2) 07/04/19 07:05 AST 73 units/L (5-40) H 07/04/19 07:05 ALT 91 units/L (7-56) H 07/04/19 07:05 Alkaline Phosphatase 114 units/L (35-129) 07/04/19 07:05 Ammonia 35.0 umol/L (25-60) 07/03/19 23:58 Lactate Dehydrogenase 277 units/L (91-180) H 07/10/19 04:00 Troponin T 0.013 ng/mL (0.00-0.029) 07/04/19 07:05 C-Reactive Protein 15.10 mg/dL (0.00-1.30) H 07/10/19 04:00 Total Protein 5.5 g/dL (6.3-8.2) L 07/04/19 07:05 Albumin 2.0 g/dL (3.9-5) L 07/04/19 07:05 Albumin/Globulin Ratio 0.6 % 07/04/19 07:05 Triglycerides 33 mg/dL (2-149) 07/03/19 19:57 Cholesterol 47 mg/dL (50-199) L 07/03/19 19:57 LDL Cholesterol Direct 25 mg/dL (50-130) L 07/03/19 19:57 HDL Cholesterol 20 mg/dL (40-59) L 07/03/19 19:57 Cholesterol/HDL Ratio 2.35 % 07/03/19 19:57 Procalcitonin 0.17 ng/mL (<0.15) 07/26/19 04:48 TSH 2.170 mlU/mL (0.270-4.200) 07/03/19 22:20 Total Cortisol 28.0 mcg/dL () 07/05/19 10:11 Urine Color Yellow (Yellow) 07/29/19 11:57 Urine Turbidity Clear (Clear) 07/29/19 11:57 Urine pH 7.0 (5.0-7.0) 07/29/19 11:57 Ur Specific [place] 1.012 (1.003-1.030) 07/29/19 11:57 Urine Protein <15 mg/dl mg/dL (Negative) 07/29/19 11:57 Urine Glucose (UA) Neg mg/dL (Negative) 07/29/19 11:57 Urine Ketones Neg mg/dL (Negative) 07/29/19 11:57 Urine Blood Sm (Negative) 07/29/19 11:57 Urine Nitrite Neg (Negative) 07/29/19 11:57 Urine Bilirubin Neg (Negative) 07/29/19 11:57 Urine Urobilinogen 4.0 mg/dL (<2.0) 07/29/19 11:57 Ur Leukocyte Esterase Mod (Negative) 07/29/19 11:57 Urine WBC (Auto) 63.0 /HPF (0.0-6.0) H 07/29/19 11:57 Urine RBC (Auto) 14.0 /HPF (0.0-6.0) 07/29/19 11:57 U Epithel Cells (Auto) < 1.0 /HPF (0-13.0) 07/29/19 11:57 Urine Bacteria (Auto) 1+ /HPF (Negative) 07/29/19 11:57 Urine WBC Clumps Few /HPF 07/03/19 21:13 Urine Mucus Few /HPF 07/03/19 21:13 Urine Osmolality 293 Mosm/kg 07/05/19 08:15 Vancomycin Trough 23.2 ug/mL (5.0-20.0) H 07/05/19 17:54 Urine Opiates Screen Presumptive negative 07/03/19 21:13 Urine Methadone Screen Presumptive negative 07/03/19 21:13 Ur Barbiturates Screen Presumptive negative 07/03/19 21:13 Ur Phencyclidine Scrn Presumptive negative 07/03/19 21:13 Ur Amphetamines Screen Presumptive negative 07/03/19 21:13 U Benzodiazepines Scrn Presumptive negative 07/03/19 21:13 Urine Cocaine Screen Presumptive negative 07/03/19 21:13 U Marijuana (THC) Screen Presumptive negative 07/03/19 21:13 Drugs of Abuse Note Disclamer 07/03/19 21:13 Plasma/Serum Alcohol < 0.01 % (0-0.07) 07/03/19 23:58 Coronavirus (PCR) Positive (Negative) A 07/04/19 10:09 Blood Type B POSITIVE 07/12/19 08:49 Antibody Screen Negative 07/12/19 08:49 Crossmatch See Detail 07/12/19 08:49 Wright/IV: Voiding Method Indwelling Catheter IV Catheter Type [Left Upper Mid-line arm] IV Catheter Type [Right INT / Saline Lock Forearm] IV Catheter Type [Right Hand] INT / Saline Lock IV Catheter Type [Right CVL Femoral] IV Catheter Type [Left INT / Saline Lock External Jugular] Active Medications - Current Medications Current Medications: Generic Name Dose Route Start Last Admin Trade Name Freq PRN Reason Stop Dose Admin Acetaminophen 650 mg 07/04/19 04:24 Tylenol TN Q6H PRN Pain MILD(1-3)/Fever >100.5/MURO Acetaminophen 650 mg 07/10/19 04:00 07/29/19 12:00 Tylenol PO 650 mg Q6HR PRN Administration Pain, Mild (1-3) FEVER Lipase/Protease/Amylase 1 each 07/04/19 10:04 07/20/19 06:15 Pancreaze 10,500 Unit FEEDTUBE 1 each PRN PRN Administration For Clogged Feeding Tube Aspirin 81 mg 07/05/19 10:00 07/29/19 09:39 Baby Aspirin PO 81 mg QDAY TAMMIE Administration Dextrose 50 ml 07/04/19 06:54 D50w (25gm) Syringe IV Q30MIN PRN Hypoglycemia Protocol Docusate Sodium 100 mg 07/10/19 10:00 07/29/19 22:47 Colace PO 100 mg BID TAMMIE Administration Enoxaparin Sodium 40 mg 07/24/19 10:00 07/29/19 09:40 Enoxaparin SUB-Q 40 mg QDAY@1000 TAMMIE Administration Famotidine 20 mg 07/23/19 22:00 07/29/19 22:47 Pepcid PO 20 mg BID TAMMIE Administration Fentanyl 50 mcg 07/21/19 15:18 Sublimaze IV Q10MIN PRN ANALGESIA Folic Acid 1 mg 07/05/19 10:00 07/29/19 09:40 Folvite PO 1 mg QDAY TAMMIE Administration Hydrophilic Ointment 1 applic 07/03/19 19:56 07/05/19 17:42 Vaseline Lip Therapy TP 1 applic Q2HR PRN Administration Dry Lips Norepinephrine 4 mg in 250 mls @ 7.5 mls/hr 07/03/19 23:00 07/20/19 01:00 Levophed Drip 4 Mg/Ns 250 Ml IV Infused TITR TAMMIE Titration Protocol 2 MCG/MIN Fentanyl Citrate 2,000 mcg in 100 mls @ 4.75 mls/hr 07/21/19 16:00 07/29/19 05:32 Fentanyl Drip Premix IV 1 mcg/kg/hr TITR TAMMIE 4.75 mls/hr Administration Protocol 1 MCG/KG/HR Cefepime HCl 1 gm in 100 mls @ 200 mls/hr 07/29/19 14:00 07/30/19 06:11 Cefepime/Ns 1 Gm/100 Ml IV 200 mls/hr Q8HR TAMMIE Administration Protocol Insulin Human Lispro 0 unit 07/07/19 12:00 07/30/19 06:12 Humalog SUB-Q Not Given Q6HR [facility] Protocol Levetiracetam 750 mg 07/06/19 11:00 07/29/19 22:47 Keppra FEEDTUBE 750 mg Q12HR TAMMIE Administration Metoprolol Tartrate 5 mg 07/12/19 15:08 07/29/19 07:30 Metoprolol IV 5 mg Q6HR PRN Administration Tachyarrhythmias Multi-Ingred Cream/Lotion/Oil/Oint 1 applic 07/03/19 19:56 07/05/19 13:19 Artificial Tears Ophth Oint OU 1 applic Q4HR PRN Administration Dry Eye(s) Naloxone HCl 0.1 mg 07/04/19 04:24 Naloxone IV Q2MIN PRN Res Rate </= 8 or 02 SAT < 92% Oxycodone/Acetaminophen 1 tab 07/19/19 14:17 Percocet 5/325 PO Q4H PRN Pain, Moderate (4-6) Potassium Chloride 40 meq 07/30/19 08:00 Potassium Chloride FEEDTUBE 07/30/19 20:01 Q6H TAMMIE Scopolamine 1 each 07/10/19 11:00 07/28/19 11:30 Transderm-Scop TD 1 each Q3D TAMMIE Administration Simple Syrup 15 ml 07/04/19 10:04 07/10/19 21:56 Simple Syrup FEEDTUBE 15 ml PRN PRN Administration Hypoglycemia Simple Syrup 30 ml 07/04/19 10:04 Simple Syrup FEEDTUBE PRN PRN Hypoglycemia Sodium Bicarbonate 325 mg 07/04/19 10:04 07/20/19 10:20 Sodium Bicarbonate FEEDTUBE 325 mg PRN PRN Administration For Clogged Feeding Tube Sodium Chloride 10 ml 07/04/19 10:00 07/30/19 07:49 Sodium Chloride Flush Syringe 10 Ml IV Not Given BID TAMMIE Sodium Chloride 10 ml 07/04/19 04:24 Sodium Chloride Flush Syringe 10 Ml IV PRN PRN LINE FLUSH Sodium Hypochlorite 1 applic 07/10/19 14:00 07/30/19 06:12 Dakin's Half Strength TP 1 applicatio BID TAMMIE Administration Nutrition/Malnutrition Assess - Dietary Evaluation Nutrition/Malnutrition Findings: Nutrition Notes Start: 07/04/19 09:17 Freq: Status: Active Protocol: Document 07/23/19 16:03 RAMANDEEP (Rec: 07/23/19 16:09 RAMANDEEP [email or web address]) Nutrition Notes Initial or Follow up Reassessment Current Diagnosis Acute Kidney Injury,COPD, Decubitus(Pressure Ulcer), Diabetes,Hypertension Other Pertinent Diagnosis COVID-19 (+), pneu, seizures, schizophrenia, Buttock and R foot PU, Current Diet TF - Nepro at 45ml/hr Labs/Tests Reviewed Pertinent Medications Reviewed Height 5 ft 11 in Weight 97.2 kg [place] Body Weight (kg) 78.18 BMI 29.9 Weight change and time frame Wt change noted Subjective/Other Information RD spoke with RN via phone at 15:27. Pt tolerating TF at goal rate. Pt remains on vent support. Percent of energy/protein needs met: 100% energy 87% pro Burn Absent Trauma Absent #2 Nutrition Diagnosis Increased nutrient needs ( specify in comment below) Diagnosis Progress(for reassessment Continues documentation) #1 Nutrition Diagnosis Inadequate oral intake Diagnosis Progress(for reassessment Continues documentation) Is patient on ventilator? Yes Is Patient Ambulatory and/or Out of Bed No REE-([facility]-confined to bed) 2110.500 Additional Notes Use pro needs based on wt from previous assessment - current wt likely related to fluid retention Protein: 101-168g (1.2-2g/kg) Fluid: 1 ml/kcal or per MD Nutrition Intervention Nutrition Support: Nepro 1.8 at 45ml/hr Flush 200ml q4h Kcal 1,944 Protein (gm) 87 Fluid (mL) 785 Goal #1 TF tolerance Goal #2 TF to meet at least 75% of energy and protein needs Follow-Up By: 07/30/19 Additional Comments F/U: stable TF, vent status, wt
[2019-07-30] MEDS: DOCUSATE SODIUM 100 MG/10 ML ORAL LIQD PO SCH ×2 (10:30→22:16)
[2019-07-30] MEDS: ENOXAPARIN 40 MG/0.4 ML INJ SUB-Q SCH (10:30)
[2019-07-30] MEDS: FAMOTIDINE 20 MG TAB PO SCH ×2 (10:30→22:17)
[2019-07-30] MEDS: FOLIC ACID 1 MG TAB PO SCH (10:30)
[2019-07-30] MEDS: levETIRAcetam 500 MG/5 ML ORAL LIQD FEEDTUBE SCH ×2 (10:30→22:16)
[2019-07-30] MEDS: ASPIRIN 81 MG TAB CHEW PO SCH (10:30)
--- NOTE | 2019-07-30 10:31 | Progress Note ---
Assessment and Plan Cultures: 07/03/2019 urine culture: No growth 07/03/2019 Tracheal aspirate: E.coli A/P: 69-year-old male with CVA, hypertension, dementia, schizophrenia, alcohol use disorder was admitted to the emergency room after being brought in by EMS with progressive shortness of breath and unresponsiveness. He was noted to have agonal breathing and a faint pulse requiring CPR. It seems patient was on hospice recently, prior to admission. #Shock, likely septic: shock resolved, remains off pressors. Noted new fever and worsening leukocytosis ? source UTI/ penile/scrotal wounds #Penile/scrotal and buttocks wounds: ?cellulitis #New UTI: per documentation initial carroll placed on 07/03, now new carroll? #Severe COVID-19 disease and pneumonia: Markers improving. Completed Plaquenil. Completed Ceftriaxone for treatment E.coli in tracheal aspirate. #Acute respiratory failure: on mechanical ventilation. #Transaminitis: Likely from COVID-19, shock #Multiple skin tears documented on admission Recs: Urology consult - penile edema and ulcer ? cellulitis with carroll Wound care consult - eval progression of wounds ?new wounds exchange carroll if has not been done, per documentation placed on 07/03 obtain urine culture - collected obtain blood cultute - ordered check procalcitonin check CXR 1 view Will follow Padmaja Garcia MD Infectious Diseases Marketing Intelligence Manager [facility] ([facility]) M [phone] O [phone] Subjective Date of service: 07/30/19 Principal diagnosis: Bilateral pneumonia, severe sepsis with septic shock, encephalopathy Interval history: Remains intubated tmax 100.8, no pressors Objective - Exam Narrative Exam: General appearance: sedated on the vent Eyes: anicteric sclerae, moist conjunctivae; no lid-lag; PERRLA HENT: Atraumatic; oropharynx ETT Lungs: CTA CV: RRR no murmur Abdomen: Soft, non-tender Extremities: no edema, no cyanosis Skin: No rash. Genital: penile/scrotal ulcer and induration Psych: no agitated Neuro: sedated Carroll - Constitutional Vitals: Vital Signs Temp Pulse Resp BP Pulse Ox 99.2 F 122 H 20 145/74 94 07/30/19 08:00 07/30/19 08:30 07/30/19 08:30 07/30/19 08:30 07/30/19 08:30 Temperature -Last 24 Hours Temperature 99.2 F Temperature 98.8 F Temperature 98.6 F Temperature 100 F Temperature 100.2 F Temperature 100.8 F - Labs CBC & Chem 7: 07/30/19 04:35 07/30/19 04:35 Labs: Abnormal lab results 07/29/19 07/29/19 07/30/19 Range/Units 11:57 17:43 00:20 WBC (4.5-11.0) K/mm3 RBC (3.65-5.03) M/mm3 Hgb (11.8-15.2) gm/dl Hct (35.5-45.6) % MCH (28-32) pg RDW (13.2-15.2) % Plt Count (140-440) K/mm3 Potassium (3.6-5.0) mmol/L Chloride (98-107) mmol/L Carbon Dioxide (22-30) mmol/L Creatinine (0.8-1.5) mg/dL POC Glucose 112 H 106 H (70-105) Urine WBC (Auto) 63.0 H (0.0-6.0) /HPF 07/30/19 07/30/19 Range/Units 04:35 04:35 WBC 24.3 H (4.5-11.0) K/mm3 RBC 3.12 L (3.65-5.03) M/mm3 Hgb 8.5 L (11.8-15.2) gm/dl Hct 26.3 L (35.5-45.6) % MCH 27 L (28-32) pg RDW 20.2 H (13.2-15.2) % Plt Count 550 H (140-440) K/mm3 Potassium 3.0 L (3.6-5.0) mmol/L Chloride 96.3 L (98-107) mmol/L Carbon Dioxide 32 H (22-30) mmol/L Creatinine 0.5 L (0.8-1.5) mg/dL POC Glucose (70-105) Urine WBC (Auto) (0.0-6.0) /HPF
--- NOTE | 2019-07-30 12:33 | Event Note ---
Date: 07/30/19 Patient chart reviewed. Recurrent fevers yesterday. Leukocytosis trending upwards. Patient remains on vent, unresponsive, unable to wean. I spoke with patient's Ana Abdullahi . I explained that the patient has now been on mechanical ventilation, unable to wean from the ventilator for the last 1 month. Due to the inability to wean from mechanical ventilation, consideration for tracheostomy has been brought up. I explained to her that Tracheostomy placement will allow for the patient to have the endotracheal tube removed, however he will remain on mechanical ventilation until he is able to be weaned. I explained that a tracheostomy will not improve his overall medical condition or prognosis. She understands, however wants to proceed with tracheostomy placement. She states that the DNR order should be maintained during the procedure. Ms. Abdullahi provided more history on the patient. She states that in December 2018, the patient fell in their bathroom and broke his neck. He underwent surgical fixation with hardware and required a tracheostomy during that time which was subsequently removed. He was sent to rehab following discharge where his condition continued to decline and he developed greater than 20 bedsores. Repeat COVID testing is currently pending. If the test is negative, will check with the OR when tracheostomy can be scheduled. Will once again reach out to patient's to obtain consent and update her on date and time of surgery. Evaluation and treatment of this patient was during the time of the national and state emergency arising from COVID19 coronavirus pandemic. Treatment and procedures performed meet the current and available best practice and guidelines for patient during the COVID pandemic.
--- NOTE | 2019-07-30 12:50 | XRay Report ---
CHEST 1 VIEW INDICATION: eval pneumonia progression. COMPARISON: 07/08/2019 FINDINGS: Support devices: Endotracheal tube terminates 4.4 cm superior to the aureliano. Heart: Within normal limits. Lungs/Pleura: Bilateral lung infiltrates or pulmonary edema have decreased by 50-75% since the previo us exam. The interstitium is prominent. Trace left pleural effusion is identified. No pneumothorax. Additional findings: None. IMPRESSION: 50-75% decrease in the bilateral lung infiltrates or pulmonary edema. Trace left pleural effusion. Signer Name: Cameron Guaman Jr, MD Signed: 07/30/2019 12:46 PM Workstation Name: [id number]
--- NOTE | 2019-07-30 13:25 | Progress Note ---
Assessment and Plan Acute hypoxemic respiratory failure on MVS Severe sepsis with Shock. Bilateral Pneumonia. PUI coronavirus-19 infection. Acute possibly on chronic encephalopathy. Oropharyngeal dysphagia. Anemia. Decubitus ulcers Diabetes type 2. Hypertension. Leukocytosis. Anemia that is microcytic. Elevated serum transaminases. [id number] metabolic acidosis. Lactic acidosis. Severe protein-calorie malnutrition - repeat COVID-19 testing next week / in 7 days - surgery evaluation ongoing for tracheostomy placement - continue care as below otherwise - continue fentanyl gtt for pain control / sedation - continue to wean supplemental oxygen for target O2 sat's > 90% acutely - continue daily SAT's and SBT assessment as tolerated - VAP bundle addressed - continue lung protective strategies - continue bronchodilators with pulmonary hygiene per RT - wean per pulmonary driven protocols otherwise - prn Levophed for target MAP > 65 mmHg - continue airborne and contact COVID-19 precautions - COVID-19 test positive - complete anti-infectives and de-escalate per ID recommendations - continue wound care per WCT - sedation prn for target RASS 0 to -1 - accuchecks with glycemic control per SSI (While critically ill target blood glucose of 140-180 mg/dL; avoid hypoglycemia) - to avoid benzodiazepine's, reduce the possibility of delirium - prn analgesia per CPOT score - Maintenance of sleep-wake cycle, avoid delirium - continue enteral nutritional support at goal rate as tolerated - G.I. & VTE prophylaxis - PT/OT/ROM exercises - continue mobility protocols for pressure ulcer prophylaxis - Monitor hemodynamics closely - continue other care per attending / other consultants - discharge planning ongoing concurrently .... Re-evaluate in am & prn CONDITION: CRITICAL PROGNOSIS: GUARDED CODE STATUS: FULL CODE The high probability of a clinically significant, sudden or life-threatening deterioration of the [respiratory & cardiovascular] system(s) required my full and direct attention, intervention and personal management. The aggregate critical care time was [33] minutes without overlap. Time includes spent on; [x] Data Review and interpretation [x] Patient assessment and monitoring of vital signs [x] Documentation [x] Medication orders and management Subjective Date of service: 07/30/19 Principal diagnosis: Bilateral pneumonia, severe sepsis with septic shock, encephalopathy Interval history: Patient is seen today for: Ac hypoxemic Resp failure on MVS; Severe sepsis with Shock; Ivan. Pneumonia; PUI coronavirus-19 infection. Seen and examined at bedside; 24hour events reviewed; nursing and respiratory care staff consulted; no adverse overnight events reported to me; resting in bed; remains on MVS; repeat COVID testing is positive; no emesis or overt aspiration; weaning tenuopusly but toleratin PSV 07/09 Objective Vital Signs - 12hr 07/30/19 07/30/19 07/30/19 01:30 02:00 02:30 Temperature Pulse Rate 107 H 110 H 113 H Pulse Rate [ From Monitor] Pulse Rate [ Left Dorsalis Pedis] Pulse Rate [ Left Radial] Pulse Rate [ Right Dorsalis Pedis] Pulse Rate [ Right Radial] Respiratory 15 16 17 Rate Blood Pressure 125/60 126/58 124/64 O2 Sat by Pulse 93 94 92 Oximetry 07/30/19 07/30/19 07/30/19 03:00 03:30 03:59 Temperature 98.8 F Pulse Rate 116 H 112 H 110 H Pulse Rate [ From Monitor] Pulse Rate [ Left Dorsalis Pedis] Pulse Rate [ Left Radial] Pulse Rate [ Right Dorsalis Pedis] Pulse Rate [ Right Radial] Respiratory 17 18 Rate Blood Pressure 138/72 131/68 131/68 O2 Sat by Pulse 91 91 93 Oximetry 07/30/19 07/30/19 07/30/19 04:00 04:30 05:00 Temperature Pulse Rate 110 H 113 H 124 H Pulse Rate [ 113 H From Monitor] Pulse Rate [ Left Dorsalis Pedis] Pulse Rate [ Left Radial] Pulse Rate [ 113 H Right Dorsalis Pedis] Pulse Rate [ Right Radial] Respiratory 17 18 14 Rate Blood Pressure 131/68 126/67 134/71 O2 Sat by Pulse 92 93 86 Oximetry 07/30/19 07/30/19 07/30/19 05:30 06:00 06:30 Temperature Pulse Rate 120 H 115 H 116 H Pulse Rate [ From Monitor] Pulse Rate [ Left Dorsalis Pedis] Pulse Rate [ Left Radial] Pulse Rate [ Right Dorsalis Pedis] Pulse Rate [ Right Radial] Respiratory 20 18 17 Rate Blood Pressure 138/76 130/71 135/73 O2 Sat by Pulse 90 92 91 Oximetry 07/30/19 07/30/19 07/30/19 07:00 07:30 07:44 Temperature Pulse Rate 117 H 119 H Pulse Rate [ 115 H From Monitor] Pulse Rate [ 115 H Left Dorsalis Pedis] Pulse Rate [ 115 H Left Radial] Pulse Rate [ 115 H Right Dorsalis Pedis] Pulse Rate [ 115 H Right Radial] Respiratory 17 16 21 Rate Blood Pressure 141/79 146/79 O2 Sat by Pulse 89 90 100 Oximetry 07/30/19 07/30/19 07/30/19 08:00 08:15 08:30 Temperature 99.2 F Pulse Rate 121 H 125 H 122 H Pulse Rate [ From Monitor] Pulse Rate [ Left Dorsalis Pedis] Pulse Rate [ Left Radial] Pulse Rate [ Right Dorsalis Pedis] Pulse Rate [ Right Radial] Respiratory 18 28 H 20 Rate Blood Pressure 138/75 148/75 145/74 O2 Sat by Pulse 92 96 94 Oximetry 07/30/19 07/30/19 07/30/19 09:00 09:30 10:00 Temperature Pulse Rate 123 H 123 H 127 H Pulse Rate [ From Monitor] Pulse Rate [ Left Dorsalis Pedis] Pulse Rate [ Left Radial] Pulse Rate [ Right Dorsalis Pedis] Pulse Rate [ Right Radial] Respiratory 20 19 15 Rate Blood Pressure 162/82 138/75 152/111 O2 Sat by Pulse 93 91 90 Oximetry 07/30/19 07/30/19 10:30 12:00 Temperature 99.6 F Pulse Rate 128 H Pulse Rate [ From Monitor] Pulse Rate [ Left Dorsalis Pedis] Pulse Rate [ Left Radial] Pulse Rate [ Right Dorsalis Pedis] Pulse Rate [ Right Radial] Respiratory 31 H Rate Blood Pressure 154/73 O2 Sat by Pulse 89 Oximetry Constitutional: appears uncomfortable, other (eelderly and chronically ill looking AAM, normocep[krystina;ic with mildly increased respiratory effort at rest) Eyes: non-icteric ENT: oropharynx moist, other (ETT 24 cm Pawan) Neck: supple, no lymphadenopathy, no JVD Effort: very labored Ascultation: Bilateral: diminished breath sounds, rhonchi Percussion: Bilateral: not dull Cardiovascular: regular rate and rhythm Gastrointestinal: normoactive bowel sounds, soft, non-tender, non-distended, other (+ PEG tube with mild TF leakage) Integumentary: decubitus ulcer Extremities: no cyanosis, no edema, pink and warm, pulses normal Neurologic: unable to assess Psychiatric: other (Unable to assess re: AMS) CBC and BMP: 07/31/19 04:42 07/31/19 04:42 ABG, PT/INR, D-dimer: ABG ABG pH 7.430 pH Units (7.350-7.450) 07/27/19 05:16 ABG pCO2 48.2 mm Hg 07/27/19 05:16 ABG pO2 63.4 mm Hg (80.0-90.0) L 07/27/19 05:16 ABG O2 Saturation 92.7 % (95.0-99.0) L 07/27/19 05:16 PT/INR, D-dimer PT 16.0 Sec. (12.2-14.9) H 07/03/19 22:20 INR 1.26 (0.87-1.13) H 07/03/19 22:20 D-Dimer 1142.18 ng/mlDDU (0-234) H 07/08/19 00:45 Abnormal lab findings: Abnormal Labs 07/03/19 07/03/19 07/03/19 19:57 21:10 21:13 WBC RBC Hgb Hct MCV MCH MCHC RDW Plt Count Lymph % (Auto) Dane % (Auto) Lymph # Dane # Baso # Seg Neutrophils % Seg Neuts % (Manual) Lymphocytes % (Manual) Monocytes % (Manual) Nucleated RBC % Seg Neutrophils # Seg Neutrophils # Man Lymphocytes # (Manual) Monocytes # (Manual) PT INR D-Dimer ABG pH 7.238 L ABG pO2 210.8 H ABG HCO3 15.4 L ABG O2 Saturation 99.2 H ABG Base Excess -11.1 L ABG Hemoglobin 8.0 L Oxyhemoglobin Sodium 124 L Potassium Chloride 92.9 L Carbon Dioxide 10 L BUN 23 H Creatinine 0.5 L Glucose 118 H POC Glucose Lactic Acid Calcium 7.0 L Magnesium Iron TIBC Ferritin AST 70 H ALT 88 H Lactate Dehydrogenase Troponin T 0.032 H C-Reactive Protein Total Protein 5.0 L Albumin 1.8 L Cholesterol 47 L LDL Cholesterol Direct 25 L HDL Cholesterol 20 L Urine WBC (Auto) 12.0 H Vancomycin Trough Coronavirus (PCR) Crossmatch 07/03/19 07/03/19 07/03/19 22:20 22:20 22:20 WBC 30.5 H RBC 2.96 L Hgb 7.7 L Hct 23.9 L MCV 81 L MCH 26 L MCHC RDW 18.6 H Plt Count 459 H Lymph % (Auto) Dane % (Auto) Lymph # Dane # Baso # Seg Neutrophils % Seg Neuts % (Manual) 93.0 H Lymphocytes % (Manual) 0.5 L Monocytes % (Manual) Nucleated RBC % Seg Neutrophils # Seg Neutrophils # Man 28.4 H Lymphocytes # (Manual) 0.2 L Monocytes # (Manual) PT 16.0 H INR 1.26 H D-Dimer ABG pH ABG pO2 ABG HCO3 ABG O2 Saturation ABG Base Excess ABG Hemoglobin Oxyhemoglobin Sodium Potassium Chloride Carbon Dioxide BUN Creatinine Glucose POC Glucose Lactic Acid 6.90 H* Calcium Magnesium Iron TIBC Ferritin AST ALT Lactate Dehydrogenase Troponin T C-Reactive Protein Total Protein Albumin Cholesterol LDL Cholesterol Direct HDL Cholesterol Urine WBC (Auto) Vancomycin Trough Coronavirus (PCR) Crossmatch 07/03/19 07/04/19 07/04/19 23:58 05:15 07:05 WBC 17.1 H RBC 3.22 L Hgb 8.3 L Hct 25.4 L MCV 79 L MCH 26 L MCHC RDW 18.6 H Plt Count Lymph % (Auto) Dane % (Auto) Lymph # Dane # Baso # Seg Neutrophils % Seg Neuts % (Manual) 74.0 H Lymphocytes % (Manual) 0 L Monocytes % (Manual) Nucleated RBC % Seg Neutrophils # Seg Neutrophils # Man 12.7 H Lymphocytes # (Manual) 0.0 L Monocytes # (Manual) PT INR D-Dimer ABG pH 7.310 L ABG pO2 73.2 L ABG HCO3 17.8 L ABG O2 Saturation 93.8 L ABG Base Excess -7.7 L ABG Hemoglobin 9.6 L Oxyhemoglobin 92.3 L Sodium Potassium Chloride Carbon Dioxide BUN Creatinine Glucose POC Glucose Lactic Acid 7.10 H* Calcium Magnesium Iron TIBC Ferritin AST ALT Lactate Dehydrogenase Troponin T C-Reactive Protein Total Protein Albumin Cholesterol LDL Cholesterol Direct HDL Cholesterol Urine WBC (Auto) Vancomycin Trough Coronavirus (PCR) Crossmatch 07/04/19 07/04/19 07/04/19 07:05 07:05 07:05 WBC RBC Hgb Hct MCV MCH MCHC RDW Plt Count Lymph % (Auto) Dane % (Auto) Lymph # Dane # Baso # Seg Neutrophils % Seg Neuts % (Manual) Lymphocytes % (Manual) Monocytes % (Manual) Nucleated RBC % Seg Neutrophils # Seg Neutrophils # Man Lymphocytes # (Manual) Monocytes # (Manual) PT INR D-Dimer ABG pH ABG pO2 ABG HCO3 ABG O2 Saturation ABG Base Excess ABG Hemoglobin Oxyhemoglobin Sodium 120 L Potassium 5.1 H Chloride 90.0 L Carbon Dioxide 14 L BUN 26 H Creatinine 0.5 L Glucose POC Glucose Lactic Acid 3.30 H* Calcium 8.0 L Magnesium Iron 9 L TIBC 97 L Ferritin AST 73 H ALT 91 H Lactate Dehydrogenase Troponin T C-Reactive Protein Total Protein 5.5 L Albumin 2.0 L Cholesterol LDL Cholesterol Direct HDL Cholesterol Urine WBC (Auto) Vancomycin Trough Coronavirus (PCR) Crossmatch 07/04/19 07/04/19 07/04/19 09:39 09:39 09:39 WBC RBC Hgb Hct MCV MCH MCHC RDW Plt Count Lymph % (Auto) Dane % (Auto) Lymph # Dane # Baso # Seg Neutrophils % Seg Neuts % (Manual) Lymphocytes % (Manual) Monocytes % (Manual) Nucleated RBC % Seg Neutrophils # Seg Neutrophils # Man Lymphocytes # (Manual) Monocytes # (Manual) PT INR D-Dimer 1419.14 H ABG pH ABG pO2 ABG HCO3 ABG O2 Saturation ABG Base Excess ABG Hemoglobin Oxyhemoglobin Sodium Potassium Chloride Carbon Dioxide BUN Creatinine Glucose POC Glucose Lactic Acid Calcium Magnesium Iron TIBC Ferritin 1719.0 H AST ALT Lactate Dehydrogenase 234 H Troponin T C-Reactive Protein 15.50 H Total Protein Albumin Cholesterol LDL Cholesterol Direct HDL Cholesterol Urine WBC (Auto) Vancomycin Trough Coronavirus (PCR) Crossmatch 07/04/19 07/04/19 07/04/19 10:09 18:08 18:28 WBC RBC Hgb Hct MCV MCH MCHC RDW Plt Count Lymph % (Auto) Dane % (Auto) Lymph # Dane # Baso # Seg Neutrophils % Seg Neuts % (Manual) Lymphocytes % (Manual) Monocytes % (Manual) Nucleated RBC % Seg Neutrophils # Seg Neutrophils # Man Lymphocytes # (Manual) Monocytes # (Manual) PT INR D-Dimer ABG pH ABG pO2 ABG HCO3 ABG O2 Saturation ABG Base Excess ABG Hemoglobin Oxyhemoglobin Sodium 117 L* Potassium 5.6 H Chloride 90.3 L Carbon Dioxide 16 L BUN 28 H Creatinine 0.5 L Glucose 58 L POC Glucose 65 L Lactic Acid Calcium 8.2 L Magnesium Iron TIBC Ferritin AST ALT Lactate Dehydrogenase Troponin T C-Reactive Protein Total Protein Albumin Cholesterol LDL Cholesterol Direct HDL Cholesterol Urine WBC (Auto) Vancomycin Trough Coronavirus (PCR) Positive A Crossmatch 07/04/19 07/04/19 07/04/19 23:45 Unknown Unknown WBC RBC Hgb Hct MCV MCH MCHC RDW Plt Count Lymph % (Auto) Dane % (Auto) Lymph # Dane # Baso # Seg Neutrophils % Seg Neuts % (Manual) Lymphocytes % (Manual) Monocytes % (Manual) Nucleated RBC % Seg Neutrophils # Seg Neutrophils # Man Lymphocytes # (Manual) Monocytes # (Manual) PT INR D-Dimer 759.77 H ABG pH ABG pO2 ABG HCO3 ABG O2 Saturation ABG Base Excess ABG Hemoglobin Oxyhemoglobin Sodium 122 L Potassium Chloride 93.0 L Carbon Dioxide 19 L BUN 27 H Creatinine 0.5 L Glucose POC Glucose Lactic Acid Calcium 8.3 L Magnesium Iron TIBC Ferritin 1301.0 H AST ALT Lactate Dehydrogenase Troponin T C-Reactive Protein Total Protein Albumin Cholesterol LDL Cholesterol Direct HDL Cholesterol Urine WBC (Auto) Vancomycin Trough Coronavirus (PCR) Crossmatch 07/04/19 07/05/19 07/05/19 Unknown 03:20 04:00 WBC RBC Hgb Hct MCV MCH MCHC RDW Plt Count Lymph % (Auto) Dane % (Auto) Lymph # Dane # Baso # Seg Neutrophils % Seg Neuts % (Manual) Lymphocytes % (Manual) Monocytes % (Manual) Nucleated RBC % Seg Neutrophils # Seg Neutrophils # Man Lymphocytes # (Manual) Monocytes # (Manual) PT INR D-Dimer ABG pH ABG pO2 60.6 L ABG HCO3 ABG O2 Saturation 93.5 L ABG Base Excess -2.4 L ABG Hemoglobin 6.9 L Oxyhemoglobin 92.0 L Sodium 125 L Potassium Chloride 92.6 L Carbon Dioxide 19 L BUN 24 H Creatinine 0.6 L Glucose POC Glucose Lactic Acid Calcium 8.2 L Magnesium 1.40 L Iron TIBC Ferritin AST ALT Lactate Dehydrogenase 242 H Troponin T C-Reactive Protein 16.70 H Total Protein Albumin Cholesterol LDL Cholesterol Direct HDL Cholesterol Urine WBC (Auto) Vancomycin Trough Coronavirus (PCR) Crossmatch 07/05/19 07/05/19 07/05/19 10:11 16:15 17:54 WBC 46.4 H* RBC 2.77 L Hgb 7.2 L Hct 21.9 L MCV 79 L MCH 26 L MCHC RDW 19.0 H Plt Count Lymph % (Auto) Dane % (Auto) Lymph # Dane # Baso # Seg Neutrophils % Seg Neuts % (Manual) 82.0 H Lymphocytes % (Manual) 1.0 L Monocytes % (Manual) Nucleated RBC % Seg Neutrophils # Seg Neutrophils # Man 38.0 H Lymphocytes # (Manual) 0.5 L Monocytes # (Manual) PT INR D-Dimer ABG pH ABG pO2 ABG HCO3 ABG O2 Saturation ABG Base Excess ABG Hemoglobin Oxyhemoglobin Sodium Potassium Chloride Carbon Dioxide BUN Creatinine Glucose POC Glucose 69 L Lactic Acid Calcium Magnesium Iron TIBC Ferritin AST ALT Lactate Dehydrogenase Troponin T C-Reactive Protein Total Protein Albumin Cholesterol LDL Cholesterol Direct HDL Cholesterol Urine WBC (Auto) Vancomycin Trough 23.2 H Coronavirus (PCR) Crossmatch 07/05/19 07/06/19 07/06/19 19:58 00:27 00:27 WBC RBC Hgb Hct MCV MCH MCHC RDW Plt Count Lymph % (Auto) Dane % (Auto) Lymph # Dane # Baso # Seg Neutrophils % Seg Neuts % (Manual) Lymphocytes % (Manual) Monocytes % (Manual) Nucleated RBC % Seg Neutrophils # Seg Neutrophils # Man Lymphocytes # (Manual) Monocytes # (Manual) PT INR D-Dimer 1333.22 H ABG pH ABG pO2 ABG HCO3 ABG O2 Saturation ABG Base Excess ABG Hemoglobin Oxyhemoglobin Sodium 127 L Potassium Chloride Carbon Dioxide BUN Creatinine Glucose POC Glucose Lactic Acid Calcium Magnesium Iron TIBC Ferritin 977.1 H AST ALT Lactate Dehydrogenase Troponin T C-Reactive Protein Total Protein Albumin Cholesterol LDL Cholesterol Direct HDL Cholesterol Urine WBC (Auto) Vancomycin Trough Coronavirus (PCR) Crossmatch 07/06/19 07/06/19 07/06/19 00:27 02:00 02:56 WBC RBC Hgb Hct MCV MCH MCHC RDW Plt Count Lymph % (Auto) Dane % (Auto) Lymph # Dane # Baso # Seg Neutrophils % Seg Neuts % (Manual) Lymphocytes % (Manual) Monocytes % (Manual) Nucleated RBC % Seg Neutrophils # Seg Neutrophils # Man Lymphocytes # (Manual) Monocytes # (Manual) PT INR D-Dimer ABG pH ABG pO2 70.3 L ABG HCO3 ABG O2 Saturation 94.8 L ABG Base Excess ABG Hemoglobin 8.0 L Oxyhemoglobin 93.2 L Sodium Potassium Chloride Carbon Dioxide BUN Creatinine Glucose POC Glucose 117 H Lactic Acid Calcium Magnesium Iron TIBC Ferritin AST ALT Lactate Dehydrogenase 236 H Troponin T C-Reactive Protein 22.90 H Total Protein Albumin Cholesterol LDL Cholesterol Direct HDL Cholesterol Urine WBC (Auto) Vancomycin Trough Coronavirus (PCR) Crossmatch 07/06/19 07/06/19 07/06/19 03:49 03:49 07:40 WBC 38.8 H RBC 2.51 L Hgb 6.7 L Hct 19.9 L* MCV 79 L MCH 27 L MCHC RDW 19.2 H Plt Count Lymph % (Auto) Dane % (Auto) Lymph # Dane # Baso # Seg Neutrophils % Seg Neuts % (Manual) 90.5 H Lymphocytes % (Manual) 1.0 L Monocytes % (Manual) Nucleated RBC % Seg Neutrophils # Seg Neutrophils # Man 35.1 H Lymphocytes # (Manual) 0.4 L Monocytes # (Manual) PT INR D-Dimer ABG pH ABG pO2 ABG HCO3 ABG O2 Saturation ABG Base Excess ABG Hemoglobin Oxyhemoglobin Sodium 131 L Potassium Chloride 96.9 L Carbon Dioxide 18 L BUN 23 H Creatinine 0.5 L Glucose POC Glucose Lactic Acid Calcium 8.0 L Magnesium Iron TIBC Ferritin AST ALT Lactate Dehydrogenase Troponin T C-Reactive Protein Total Protein Albumin Cholesterol LDL Cholesterol Direct HDL Cholesterol Urine WBC (Auto) Vancomycin Trough Coronavirus (PCR) Crossmatch See Detail 07/06/19 07/06/19 07/06/19 12:38 14:39 20:00 WBC RBC Hgb Hct MCV MCH MCHC RDW Plt Count Lymph % (Auto) Dane % (Auto) Lymph # Dane # Baso # Seg Neutrophils % Seg Neuts % (Manual) Lymphocytes % (Manual) Monocytes % (Manual) Nucleated RBC % Seg Neutrophils # Seg Neutrophils # Man Lymphocytes # (Manual) Monocytes # (Manual) PT INR D-Dimer ABG pH ABG pO2 ABG HCO3 ABG O2 Saturation ABG Base Excess ABG Hemoglobin Oxyhemoglobin Sodium Potassium Chloride Carbon Dioxide BUN Creatinine Glucose POC Glucose 112 H 111 H 140 H Lactic Acid Calcium Magnesium Iron TIBC Ferritin AST ALT Lactate Dehydrogenase Troponin T C-Reactive Protein Total Protein Albumin Cholesterol LDL Cholesterol Direct HDL Cholesterol Urine WBC (Auto) Vancomycin Trough Coronavirus (PCR) Crossmatch 07/06/19 07/06/19 07/07/19 22:43 22:56 02:20 WBC RBC Hgb 7.9 L Hct 23.1 L MCV MCH MCHC RDW Plt Count Lymph % (Auto) Dane % (Auto) Lymph # Dane # Baso # Seg Neutrophils % Seg Neuts % (Manual) Lymphocytes % (Manual) Monocytes % (Manual) Nucleated RBC % Seg Neutrophils # Seg Neutrophils # Man Lymphocytes # (Manual) Monocytes # (Manual) PT INR D-Dimer ABG pH ABG pO2 ABG HCO3 ABG O2 Saturation ABG Base Excess ABG Hemoglobin Oxyhemoglobin Sodium Potassium Chloride Carbon Dioxide BUN Creatinine Glucose POC Glucose 122 H 149 H Lactic Acid Calcium Magnesium Iron TIBC Ferritin AST ALT Lactate Dehydrogenase Troponin T C-Reactive Protein Total Protein Albumin Cholesterol LDL Cholesterol Direct HDL Cholesterol Urine WBC (Auto) Vancomycin Trough Coronavirus (PCR) Crossmatch 07/07/19 07/07/19 07/07/19 04:35 05:27 05:34 WBC 23.1 H RBC 3.00 L Hgb 8.1 L Hct 24.2 L MCV 81 L MCH 27 L MCHC RDW 20.6 H Plt Count Lymph % (Auto) Dane % (Auto) Lymph # Dane # Baso # Seg Neutrophils % Seg Neuts % (Manual) 90.0 H Lymphocytes % (Manual) 2.0 L Monocytes % (Manual) Nucleated RBC % Seg Neutrophils # Seg Neutrophils # Man 20.8 H Lymphocytes # (Manual) 0.5 L Monocytes # (Manual) PT INR D-Dimer ABG pH ABG pO2 65.8 L ABG HCO3 ABG O2 Saturation 92.2 L ABG Base Excess ABG Hemoglobin 8.3 L Oxyhemoglobin 90.6 L Sodium Potassium Chloride Carbon Dioxide BUN Creatinine Glucose POC Glucose 132 H Lactic Acid Calcium Magnesium Iron TIBC Ferritin AST ALT Lactate Dehydrogenase Troponin T C-Reactive Protein Total Protein Albumin Cholesterol LDL Cholesterol Direct HDL Cholesterol Urine WBC (Auto) Vancomycin Trough Coronavirus (PCR) Crossmatch 07/07/19 07/07/19 07/07/19 05:34 11:50 15:58 WBC RBC Hgb 8.1 L Hct 24.2 L MCV MCH MCHC RDW Plt Count Lymph % (Auto) Dane % (Auto) Lymph # Dane # Baso # Seg Neutrophils % Seg Neuts % (Manual) Lymphocytes % (Manual) Monocytes % (Manual) Nucleated RBC % Seg Neutrophils # Seg Neutrophils # Man Lymphocytes # (Manual) Monocytes # (Manual) PT INR D-Dimer ABG pH ABG pO2 ABG HCO3 ABG O2 Saturation ABG Base Excess ABG Hemoglobin Oxyhemoglobin Sodium 135 L Potassium 3.3 L Chloride Carbon Dioxide 20 L BUN 27 H Creatinine 0.6 L Glucose 121 H POC Glucose 123 H Lactic Acid Calcium 8.0 L Magnesium Iron TIBC Ferritin AST ALT Lactate Dehydrogenase Troponin T C-Reactive Protein Total Protein Albumin Cholesterol LDL Cholesterol Direct HDL Cholesterol Urine WBC (Auto) Vancomycin Trough Coronavirus (PCR) Crossmatch 07/07/19 07/07/19 07/07/19 17:42 22:00 23:53 WBC RBC Hgb 8.0 L Hct 23.4 L MCV MCH MCHC RDW Plt Count Lymph % (Auto) Dane % (Auto) Lymph # Dane # Baso # Seg Neutrophils % Seg Neuts % (Manual) Lymphocytes % (Manual) Monocytes % (Manual) Nucleated RBC % Seg Neutrophils # Seg Neutrophils # Man Lymphocytes # (Manual) Monocytes # (Manual) PT INR D-Dimer ABG pH ABG pO2 ABG HCO3 ABG O2 Saturation ABG Base Excess ABG Hemoglobin Oxyhemoglobin Sodium Potassium Chloride Carbon Dioxide BUN Creatinine Glucose POC Glucose 107 H 117 H Lactic Acid Calcium Magnesium Iron TIBC Ferritin AST ALT Lactate Dehydrogenase Troponin T C-Reactive Protein Total Protein Albumin Cholesterol LDL Cholesterol Direct HDL Cholesterol Urine WBC (Auto) Vancomycin Trough Coronavirus (PCR) Crossmatch 07/08/19 07/08/19 07/08/19 00:45 00:45 00:45 WBC RBC Hgb Hct MCV MCH MCHC RDW Plt Count Lymph % (Auto) Dane % (Auto) Lymph # Dane # Baso # Seg Neutrophils % Seg Neuts % (Manual) Lymphocytes % (Manual) Monocytes % (Manual) Nucleated RBC % Seg Neutrophils # Seg Neutrophils # Man Lymphocytes # (Manual) Monocytes # (Manual) PT INR D-Dimer 1142.18 H ABG pH ABG pO2 ABG HCO3 ABG O2 Saturation ABG Base Excess ABG Hemoglobin Oxyhemoglobin Sodium Potassium Chloride Carbon Dioxide BUN Creatinine Glucose POC Glucose Lactic Acid Calcium Magnesium Iron TIBC Ferritin 839.0 H AST ALT Lactate Dehydrogenase 253 H Troponin T C-Reactive Protein 18.90 H Total Protein Albumin Cholesterol LDL Cholesterol Direct HDL Cholesterol Urine WBC (Auto) Vancomycin Trough Coronavirus (PCR) Crossmatch 07/08/19 07/08/19 07/08/19 04:30 05:11 12:02 WBC RBC Hgb Hct MCV MCH MCHC RDW Plt Count Lymph % (Auto) Dane % (Auto) Lymph # Dane # Baso # Seg Neutrophils % Seg Neuts % (Manual) Lymphocytes % (Manual) Monocytes % (Manual) Nucleated RBC % Seg Neutrophils # Seg Neutrophils # Man Lymphocytes # (Manual) Monocytes # (Manual) PT INR D-Dimer ABG pH ABG pO2 66.0 L ABG HCO3 ABG O2 Saturation 92.3 L ABG Base Excess ABG Hemoglobin 7.7 L Oxyhemoglobin 90.7 L Sodium Potassium Chloride Carbon Dioxide BUN Creatinine Glucose POC Glucose 108 H 153 H Lactic Acid Calcium Magnesium Iron TIBC Ferritin AST ALT Lactate Dehydrogenase Troponin T C-Reactive Protein Total Protein Albumin Cholesterol LDL Cholesterol Direct HDL Cholesterol Urine WBC (Auto) Vancomycin Trough Coronavirus (PCR) Crossmatch 07/08/19 07/08/19 07/08/19 16:15 18:22 23:35 WBC RBC Hgb Hct MCV MCH MCHC RDW Plt Count Lymph % (Auto) Dane % (Auto) Lymph # Dane # Baso # Seg Neutrophils % Seg Neuts % (Manual) Lymphocytes % (Manual) Monocytes % (Manual) Nucleated RBC % Seg Neutrophils # Seg Neutrophils # Man Lymphocytes # (Manual) Monocytes # (Manual) PT INR D-Dimer ABG pH ABG pO2 ABG HCO3 ABG O2 Saturation ABG Base Excess ABG Hemoglobin Oxyhemoglobin Sodium 134 L Potassium 3.3 L Chloride Carbon Dioxide 21 L BUN 27 H Creatinine 0.6 L Glucose 146 H POC Glucose 134 H 133 H Lactic Acid Calcium Magnesium Iron TIBC Ferritin AST ALT Lactate Dehydrogenase Troponin T C-Reactive Protein Total Protein Albumin Cholesterol LDL Cholesterol Direct HDL Cholesterol Urine WBC (Auto) Vancomycin Trough Coronavirus (PCR) Crossmatch 07/09/19 07/09/19 07/09/19 04:30 04:30 05:00 WBC 18.9 H RBC 2.77 L Hgb 7.4 L Hct 22.8 L MCV 82 L MCH 27 L MCHC RDW 20.9 H Plt Count 130 L Lymph % (Auto) Dane % (Auto) Lymph # Dane # Baso # Seg Neutrophils % Seg Neuts % (Manual) 84.0 H Lymphocytes % (Manual) 0 L Monocytes % (Manual) Nucleated RBC % Seg Neutrophils # Seg Neutrophils # Man 15.9 H Lymphocytes # (Manual) 0.0 L Monocytes # (Manual) PT INR D-Dimer ABG pH ABG pO2 ABG HCO3 ABG O2 Saturation ABG Base Excess ABG Hemoglobin Oxyhemoglobin Sodium Potassium 3.1 L Chloride Carbon Dioxide BUN 26 H Creatinine 0.5 L Glucose 125 H POC Glucose 155 H Lactic Acid Calcium Magnesium Iron TIBC Ferritin AST ALT Lactate Dehydrogenase Troponin T C-Reactive Protein Total Protein Albumin Cholesterol LDL Cholesterol Direct HDL Cholesterol Urine WBC (Auto) Vancomycin Trough Coronavirus (PCR) Crossmatch 07/09/19 07/09/19 07/09/19 05:55 12:22 17:50 WBC RBC Hgb Hct MCV MCH MCHC RDW Plt Count Lymph % (Auto) Dane % (Auto) Lymph # Dane # Baso # Seg Neutrophils % Seg Neuts % (Manual) Lymphocytes % (Manual) Monocytes % (Manual) Nucleated RBC % Seg Neutrophils # Seg Neutrophils # Man Lymphocytes # (Manual) Monocytes # (Manual) PT INR D-Dimer ABG pH ABG pO2 62.8 L ABG HCO3 ABG O2 Saturation ABG Base Excess ABG Hemoglobin 6.1 L Oxyhemoglobin 93.9 L Sodium Potassium Chloride Carbon Dioxide BUN Creatinine Glucose POC Glucose 115 H 133 H Lactic Acid Calcium Magnesium Iron TIBC Ferritin AST ALT Lactate Dehydrogenase Troponin T C-Reactive Protein Total Protein Albumin Cholesterol LDL Cholesterol Direct HDL Cholesterol Urine WBC (Auto) Vancomycin Trough Coronavirus (PCR) Crossmatch 07/10/19 07/10/19 07/10/19 00:38 04:00 04:00 WBC RBC Hgb Hct MCV MCH MCHC RDW Plt Count Lymph % (Auto) Dane % (Auto) Lymph # Dane # Baso # Seg Neutrophils % Seg Neuts % (Manual) Lymphocytes % (Manual) Monocytes % (Manual) Nucleated RBC % Seg Neutrophils # Seg Neutrophils # Man Lymphocytes # (Manual) Monocytes # (Manual) PT INR D-Dimer ABG pH ABG pO2 ABG HCO3 ABG O2 Saturation ABG Base Excess ABG Hemoglobin Oxyhemoglobin Sodium Potassium Chloride 107.9 H Carbon Dioxide BUN 26 H Creatinine 0.4 L Glucose 137 H POC Glucose 122 H Lactic Acid Calcium Magnesium 1.50 L Iron TIBC Ferritin AST ALT Lactate Dehydrogenase 277 H Troponin T C-Reactive Protein 15.10 H Total Protein Albumin Cholesterol LDL Cholesterol Direct HDL Cholesterol Urine WBC (Auto) Vancomycin Trough Coronavirus (PCR) Crossmatch 07/10/19 07/10/19 07/10/19 04:07 05:21 17:25 WBC RBC Hgb Hct MCV MCH MCHC RDW Plt Count Lymph % (Auto) Dane % (Auto) Lymph # Dane # Baso # Seg Neutrophils % Seg Neuts % (Manual) Lymphocytes % (Manual) Monocytes % (Manual) Nucleated RBC % Seg Neutrophils # Seg Neutrophils # Man Lymphocytes # (Manual) Monocytes # (Manual) PT INR D-Dimer ABG pH ABG pO2 65.6 L ABG HCO3 26.3 H ABG O2 Saturation ABG Base Excess ABG Hemoglobin 6.7 L Oxyhemoglobin Sodium Potassium Chloride Carbon Dioxide BUN Creatinine Glucose POC Glucose 144 H 113 H Lactic Acid Calcium Magnesium Iron TIBC Ferritin AST ALT Lactate Dehydrogenase Troponin T C-Reactive Protein Total Protein Albumin Cholesterol LDL Cholesterol Direct HDL Cholesterol Urine WBC (Auto) Vancomycin Trough Coronavirus (PCR) Crossmatch 07/11/19 07/11/19 07/11/19 00:07 05:14 05:25 WBC RBC Hgb Hct MCV MCH MCHC RDW Plt Count Lymph % (Auto) Dane % (Auto) Lymph # Dane # Baso # Seg Neutrophils % Seg Neuts % (Manual) Lymphocytes % (Manual) Monocytes % (Manual) Nucleated RBC % Seg Neutrophils # Seg Neutrophils # Man Lymphocytes # (Manual) Monocytes # (Manual) PT INR D-Dimer ABG pH ABG pO2 ABG HCO3 ABG O2 Saturation ABG Base Excess ABG Hemoglobin 5.8 L Oxyhemoglobin Sodium Potassium Chloride 108.0 H Carbon Dioxide BUN 26 H Creatinine 0.4 L Glucose 110 H POC Glucose 121 H Lactic Acid Calcium Magnesium Iron TIBC Ferritin AST ALT Lactate Dehydrogenase Troponin T C-Reactive Protein Total Protein Albumin Cholesterol LDL Cholesterol Direct HDL Cholesterol Urine WBC (Auto) Vancomycin Trough Coronavirus (PCR) Crossmatch 07/11/19 07/11/19 07/11/19 12:27 18:00 23:42 WBC RBC Hgb Hct MCV MCH MCHC RDW Plt Count Lymph % (Auto) Dane % (Auto) Lymph # Dane # Baso # Seg Neutrophils % Seg Neuts % (Manual) Lymphocytes % (Manual) Monocytes % (Manual) Nucleated RBC % Seg Neutrophils # Seg Neutrophils # Man Lymphocytes # (Manual) Monocytes # (Manual) PT INR D-Dimer ABG pH ABG pO2 ABG HCO3 ABG O2 Saturation ABG Base Excess ABG Hemoglobin Oxyhemoglobin Sodium Potassium Chloride Carbon Dioxide BUN Creatinine Glucose POC Glucose 158 H 141 H 142 H Lactic Acid Calcium Magnesium Iron TIBC Ferritin AST ALT Lactate Dehydrogenase Troponin T C-Reactive Protein Total Protein Albumin Cholesterol LDL Cholesterol Direct HDL Cholesterol Urine WBC (Auto) Vancomycin Trough Coronavirus (PCR) Crossmatch 07/12/19 07/12/19 07/12/19 04:46 04:46 05:23 WBC 23.6 H RBC 2.51 L Hgb 6.7 L Hct 20.8 L MCV 83 L MCH 27 L MCHC RDW 20.3 H Plt Count Lymph % (Auto) Dane % (Auto) Lymph # Dane # Baso # Seg Neutrophils % Seg Neuts % (Manual) 94.0 H Lymphocytes % (Manual) 4.0 L Monocytes % (Manual) Nucleated RBC % Seg Neutrophils # Seg Neutrophils # Man 22.2 H Lymphocytes # (Manual) 0.9 L Monocytes # (Manual) PT INR D-Dimer ABG pH ABG pO2 ABG HCO3 ABG O2 Saturation ABG Base Excess ABG Hemoglobin Oxyhemoglobin Sodium Potassium Chloride 107.1 H Carbon Dioxide BUN 25 H Creatinine 0.4 L Glucose 122 H POC Glucose 118 H Lactic Acid Calcium Magnesium Iron TIBC Ferritin AST ALT Lactate Dehydrogenase Troponin T C-Reactive Protein Total Protein Albumin Cholesterol LDL Cholesterol Direct HDL Cholesterol Urine WBC (Auto) Vancomycin Trough Coronavirus (PCR) Crossmatch 07/12/19 07/12/19 07/12/19 08:49 11:36 18:15 WBC RBC Hgb Hct MCV MCH MCHC RDW Plt Count Lymph % (Auto) Dane % (Auto) Lymph # Dane # Baso # Seg Neutrophils % Seg Neuts % (Manual) Lymphocytes % (Manual) Monocytes % (Manual) Nucleated RBC % Seg Neutrophils # Seg Neutrophils # Man Lymphocytes # (Manual) Monocytes # (Manual) PT INR D-Dimer ABG pH ABG pO2 ABG HCO3 ABG O2 Saturation ABG Base Excess ABG Hemoglobin Oxyhemoglobin Sodium Potassium Chloride Carbon Dioxide BUN Creatinine Glucose POC Glucose 124 H 110 H Lactic Acid Calcium Magnesium Iron TIBC Ferritin AST ALT Lactate Dehydrogenase Troponin T C-Reactive Protein Total Protein Albumin Cholesterol LDL Cholesterol Direct HDL Cholesterol Urine WBC (Auto) Vancomycin Trough Coronavirus (PCR) Crossmatch See Detail 07/12/19 07/13/19 07/13/19 23:16 05:26 06:50 WBC 23.9 H RBC 2.58 L Hgb 6.9 L Hct 21.5 L MCV 83 L MCH 27 L MCHC RDW 19.0 H Plt Count Lymph % (Auto) Dane % (Auto) Lymph # Dane # Baso # Seg Neutrophils % Seg Neuts % (Manual) 96.0 H Lymphocytes % (Manual) 3.0 L Monocytes % (Manual) Nucleated RBC % Seg Neutrophils # Seg Neutrophils # Man 22.9 H Lymphocytes # (Manual) 0.7 L Monocytes # (Manual) PT INR D-Dimer ABG pH ABG pO2 ABG HCO3 ABG O2 Saturation ABG Base Excess ABG Hemoglobin Oxyhemoglobin Sodium Potassium Chloride Carbon Dioxide BUN Creatinine Glucose POC Glucose 108 H 126 H Lactic Acid Calcium Magnesium Iron TIBC Ferritin AST ALT Lactate Dehydrogenase Troponin T C-Reactive Protein Total Protein Albumin Cholesterol LDL Cholesterol Direct HDL Cholesterol Urine WBC (Auto) Vancomycin Trough Coronavirus (PCR) Crossmatch 07/13/19 07/13/19 07/13/19 06:50 12:38 18:05 WBC RBC Hgb Hct MCV MCH MCHC RDW Plt Count Lymph % (Auto) Dane % (Auto) Lymph # Dane # Baso # Seg Neutrophils % Seg Neuts % (Manual) Lymphocytes % (Manual) Monocytes % (Manual) Nucleated RBC % Seg Neutrophils # Seg Neutrophils # Man Lymphocytes # (Manual) Monocytes # (Manual) PT INR D-Dimer ABG pH ABG pO2 ABG HCO3 ABG O2 Saturation ABG Base Excess ABG Hemoglobin Oxyhemoglobin Sodium Potassium Chloride Carbon Dioxide BUN 33 H Creatinine 0.5 L Glucose 136 H POC Glucose 164 H 145 H Lactic Acid Calcium Magnesium Iron TIBC Ferritin AST ALT Lactate Dehydrogenase Troponin T C-Reactive Protein Total Protein Albumin Cholesterol LDL Cholesterol Direct HDL Cholesterol Urine WBC (Auto) Vancomycin Trough Coronavirus (PCR) Crossmatch 07/13/19 07/14/19 07/14/19 18:30 00:21 04:40 WBC 22.9 H RBC 2.45 L Hgb 6.6 L Hct 21.1 L MCV MCH 27 L MCHC 31 L RDW 19.2 H Plt Count Lymph % (Auto) Dane % (Auto) Lymph # Dane # Baso # Seg Neutrophils % Seg Neuts % (Manual) 91.0 H Lymphocytes % (Manual) 7.0 L Monocytes % (Manual) Nucleated RBC % Seg Neutrophils # Seg Neutrophils # Man 20.8 H Lymphocytes # (Manual) Monocytes # (Manual) PT INR D-Dimer ABG pH ABG pO2 58.1 L ABG HCO3 ABG O2 Saturation 88.7 L ABG Base Excess ABG Hemoglobin 7.8 L Oxyhemoglobin 86.8 L Sodium Potassium Chloride Carbon Dioxide BUN Creatinine Glucose POC Glucose 118 H Lactic Acid Calcium Magnesium Iron TIBC Ferritin AST ALT Lactate Dehydrogenase Troponin T C-Reactive Protein Total Protein Albumin Cholesterol LDL Cholesterol Direct HDL Cholesterol Urine WBC (Auto) Vancomycin Trough Coronavirus (PCR) Crossmatch 07/14/19 07/14/19 07/14/19 04:40 05:38 05:45 WBC RBC Hgb Hct MCV MCH MCHC RDW Plt Count Lymph % (Auto) Dane % (Auto) Lymph # Dane # Baso # Seg Neutrophils % Seg Neuts % (Manual) Lymphocytes % (Manual) Monocytes % (Manual) Nucleated RBC % Seg Neutrophils # Seg Neutrophils # Man Lymphocytes # (Manual) Monocytes # (Manual) PT INR D-Dimer ABG pH 7.230 L ABG pO2 72.1 L ABG HCO3 ABG O2 Saturation 89.3 L ABG Base Excess -2.7 L ABG Hemoglobin 6.7 L Oxyhemoglobin 87.7 L Sodium Potassium Chloride 107.4 H Carbon Dioxide BUN 45 H Creatinine Glucose 101 H POC Glucose 154 H Lactic Acid Calcium Magnesium Iron TIBC Ferritin AST ALT Lactate Dehydrogenase Troponin T C-Reactive Protein Total Protein Albumin Cholesterol LDL Cholesterol Direct HDL Cholesterol Urine WBC (Auto) Vancomycin Trough Coronavirus (PCR) Crossmatch 07/14/19 07/14/19 07/14/19 12:25 18:20 19:01 WBC 22.4 H RBC 2.70 L Hgb 7.5 L Hct 23.3 L MCV MCH MCHC RDW 19.5 H Plt Count Lymph % (Auto) Dane % (Auto) Lymph # Dane # Baso # Seg Neutrophils % Seg Neuts % (Manual) Lymphocytes % (Manual) Monocytes % (Manual) Nucleated RBC % Seg Neutrophils # Seg Neutrophils # Man Lymphocytes # (Manual) Monocytes # (Manual) PT INR D-Dimer ABG pH ABG pO2 ABG HCO3 ABG O2 Saturation ABG Base Excess ABG Hemoglobin Oxyhemoglobin Sodium Potassium Chloride Carbon Dioxide BUN Creatinine Glucose POC Glucose 136 H 131 H Lactic Acid Calcium Magnesium Iron TIBC Ferritin AST ALT Lactate Dehydrogenase Troponin T C-Reactive Protein Total Protein Albumin Cholesterol LDL Cholesterol Direct HDL Cholesterol Urine WBC (Auto) Vancomycin Trough Coronavirus (PCR) Crossmatch 07/15/19 07/15/19 07/15/19 00:17 04:35 05:18 WBC 20.6 H RBC 2.41 L Hgb 6.8 L Hct 20.7 L MCV MCH MCHC RDW 20.2 H Plt Count Lymph % (Auto) Dane % (Auto) Lymph # Dane # Baso # Seg Neutrophils % Seg Neuts % (Manual) 92.0 H Lymphocytes % (Manual) 5.0 L Monocytes % (Manual) Nucleated RBC % Seg Neutrophils # Seg Neutrophils # Man 19.0 H Lymphocytes # (Manual) 1.0 L Monocytes # (Manual) PT INR D-Dimer ABG pH 7.342 L ABG pO2 ABG HCO3 ABG O2 Saturation ABG Base Excess -3.1 L ABG Hemoglobin 7.2 L Oxyhemoglobin 94.9 L Sodium Potassium Chloride Carbon Dioxide BUN Creatinine Glucose POC Glucose 116 H Lactic Acid Calcium Magnesium Iron TIBC Ferritin AST ALT Lactate Dehydrogenase Troponin T C-Reactive Protein Total Protein Albumin Cholesterol LDL Cholesterol Direct HDL Cholesterol Urine WBC (Auto) Vancomycin Trough Coronavirus (PCR) Crossmatch 07/15/19 07/15/19 07/15/19 05:18 05:57 11:28 WBC RBC Hgb Hct MCV MCH MCHC RDW Plt Count Lymph % (Auto) Dane % (Auto) Lymph # Dane # Baso # Seg Neutrophils % Seg Neuts % (Manual) Lymphocytes % (Manual) Monocytes % (Manual) Nucleated RBC % Seg Neutrophils # Seg Neutrophils # Man Lymphocytes # (Manual) Monocytes # (Manual) PT INR D-Dimer ABG pH ABG pO2 ABG HCO3 ABG O2 Saturation ABG Base Excess ABG Hemoglobin Oxyhemoglobin Sodium Potassium Chloride Carbon Dioxide 20 L BUN 59 H Creatinine Glucose 140 H POC Glucose 139 H 117 H Lactic Acid Calcium Magnesium Iron TIBC Ferritin AST ALT Lactate Dehydrogenase Troponin T C-Reactive Protein Total Protein Albumin Cholesterol LDL Cholesterol Direct HDL Cholesterol Urine WBC (Auto) Vancomycin Trough Coronavirus (PCR) Crossmatch 07/15/19 07/16/19 07/16/19 18:13 00:06 03:43 WBC RBC Hgb Hct MCV MCH MCHC RDW Plt Count Lymph % (Auto) Dane % (Auto) Lymph # Dane # Baso # Seg Neutrophils % Seg Neuts % (Manual) Lymphocytes % (Manual) Monocytes % (Manual) Nucleated RBC % Seg Neutrophils # Seg Neutrophils # Man Lymphocytes # (Manual) Monocytes # (Manual) PT INR D-Dimer ABG pH 7.344 L ABG pO2 68.6 L ABG HCO3 ABG O2 Saturation ABG Base Excess -3.5 L ABG Hemoglobin 6.1 L Oxyhemoglobin 93.3 L Sodium Potassium Chloride Carbon Dioxide BUN Creatinine Glucose POC Glucose 114 H 119 H Lactic Acid Calcium Magnesium Iron TIBC Ferritin AST ALT Lactate Dehydrogenase Troponin T C-Reactive Protein Total Protein Albumin Cholesterol LDL Cholesterol Direct HDL Cholesterol Urine WBC (Auto) Vancomycin Trough Coronavirus (PCR) Crossmatch 07/16/19 07/16/19 07/16/19 04:41 04:41 12:09 WBC 19.6 H RBC 2.81 L Hgb 7.7 L Hct 24.0 L MCV MCH 27 L MCHC RDW 19.4 H Plt Count 514 H Lymph % (Auto) 6.7 L Dane % (Auto) Lymph # Dane # 1.0 H Baso # Seg Neutrophils % 87.0 H Seg Neuts % (Manual) Lymphocytes % (Manual) Monocytes % (Manual) Nucleated RBC % Seg Neutrophils # 17.0 H Seg Neutrophils # Man Lymphocytes # (Manual) Monocytes # (Manual) PT INR D-Dimer ABG pH ABG pO2 ABG HCO3 ABG O2 Saturation ABG Base Excess ABG Hemoglobin Oxyhemoglobin Sodium Potassium 5.9 H Chloride Carbon Dioxide 21 L BUN 73 H Creatinine 2.0 H Glucose POC Glucose 141 H Lactic Acid Calcium Magnesium Iron TIBC Ferritin AST ALT Lactate Dehydrogenase Troponin T C-Reactive Protein Total Protein Albumin Cholesterol LDL Cholesterol Direct HDL Cholesterol Urine WBC (Auto) Vancomycin Trough Coronavirus (PCR) Crossmatch 07/16/19 07/16/19 07/17/19 16:19 17:45 00:16 WBC RBC Hgb Hct MCV MCH MCHC RDW Plt Count Lymph % (Auto) Dane % (Auto) Lymph # Dane # Baso # Seg Neutrophils % Seg Neuts % (Manual) Lymphocytes % (Manual) Monocytes % (Manual) Nucleated RBC % Seg Neutrophils # Seg Neutrophils # Man Lymphocytes # (Manual) Monocytes # (Manual) PT INR D-Dimer ABG pH ABG pO2 ABG HCO3 ABG O2 Saturation ABG Base Excess ABG Hemoglobin Oxyhemoglobin Sodium Potassium 5.1 H Chloride Carbon Dioxide 20 L BUN 72 H Creatinine 1.7 H Glucose 128 H POC Glucose 181 H 164 H Lactic Acid Calcium Magnesium Iron TIBC Ferritin AST ALT Lactate Dehydrogenase Troponin T C-Reactive Protein Total Protein Albumin Cholesterol LDL Cholesterol Direct HDL Cholesterol Urine WBC (Auto) Vancomycin Trough Coronavirus (PCR) Crossmatch 07/17/19 07/17/19 07/17/19 04:20 04:39 04:39 WBC 16.1 H RBC 2.92 L Hgb 8.0 L Hct 25.5 L MCV MCH MCHC 31 L RDW 19.7 H Plt Count 564 H Lymph % (Auto) 3.6 L Dane % (Auto) 7.4 H Lymph # 0.6 L Dane # 1.2 H Baso # Seg Neutrophils % 87.5 H Seg Neuts % (Manual) Lymphocytes % (Manual) Monocytes % (Manual) Nucleated RBC % Seg Neutrophils # 14.1 H Seg Neutrophils # Man Lymphocytes # (Manual) Monocytes # (Manual) PT INR D-Dimer ABG pH 7.231 L ABG pO2 95.3 H ABG HCO3 ABG O2 Saturation ABG Base Excess -5.0 L ABG Hemoglobin 7.9 L Oxyhemoglobin 94.8 L Sodium Potassium Chloride 107.8 H Carbon Dioxide 21 L BUN 68 H Creatinine Glucose POC Glucose Lactic Acid Calcium Magnesium Iron TIBC Ferritin AST ALT Lactate Dehydrogenase Troponin T C-Reactive Protein Total Protein Albumin Cholesterol LDL Cholesterol Direct HDL Cholesterol Urine WBC (Auto) Vancomycin Trough Coronavirus (PCR) Crossmatch 07/17/19 07/17/19 07/17/19 05:28 12:11 18:48 WBC RBC Hgb Hct MCV MCH MCHC RDW Plt Count Lymph % (Auto) Dane % (Auto) Lymph # Dane # Baso # Seg Neutrophils % Seg Neuts % (Manual) Lymphocytes % (Manual) Monocytes % (Manual) Nucleated RBC % Seg Neutrophils # Seg Neutrophils # Man Lymphocytes # (Manual) Monocytes # (Manual) PT INR D-Dimer ABG pH ABG pO2 ABG HCO3 ABG O2 Saturation ABG Base Excess ABG Hemoglobin Oxyhemoglobin Sodium Potassium Chloride Carbon Dioxide BUN Creatinine Glucose POC Glucose 121 H 125 H 174 H Lactic Acid Calcium Magnesium Iron TIBC Ferritin AST ALT Lactate Dehydrogenase Troponin T C-Reactive Protein Total Protein Albumin Cholesterol LDL Cholesterol Direct HDL Cholesterol Urine WBC (Auto) Vancomycin Trough Coronavirus (PCR) Crossmatch 07/17/19 07/17/19 07/18/19 19:55 23:57 02:30 WBC RBC Hgb Hct MCV MCH MCHC RDW Plt Count Lymph % (Auto) Dane % (Auto) Lymph # Dane # Baso # Seg Neutrophils % Seg Neuts % (Manual) Lymphocytes % (Manual) Monocytes % (Manual) Nucleated RBC % Seg Neutrophils # Seg Neutrophils # Man Lymphocytes # (Manual) Monocytes # (Manual) PT INR D-Dimer ABG pH 7.344 L 7.294 L ABG pO2 78.5 L 119.2 H ABG HCO3 ABG O2 Saturation ABG Base Excess -3.3 L -2.6 L ABG Hemoglobin 8.6 L 8.1 L Oxyhemoglobin 94.8 L Sodium Potassium Chloride Carbon Dioxide BUN Creatinine Glucose POC Glucose 148 H Lactic Acid Calcium Magnesium Iron TIBC Ferritin AST ALT Lactate Dehydrogenase Troponin T C-Reactive Protein Total Protein Albumin Cholesterol LDL Cholesterol Direct HDL Cholesterol Urine WBC (Auto) Vancomycin Trough Coronavirus (PCR) Crossmatch 07/18/19 07/18/19 07/18/19 04:49 05:22 05:22 WBC 15.9 H RBC 3.00 L Hgb 8.1 L Hct 26.0 L MCV MCH 27 L MCHC 31 L RDW 19.4 H Plt Count 733 H Lymph % (Auto) 6.3 L Dane % (Auto) 7.4 H Lymph # 1.0 L Dane # 1.2 H Baso # 0.2 H Seg Neutrophils % 83.8 H Seg Neuts % (Manual) Lymphocytes % (Manual) Monocytes % (Manual) Nucleated RBC % Seg Neutrophils # 13.3 H Seg Neutrophils # Man Lymphocytes # (Manual) Monocytes # (Manual) PT INR D-Dimer ABG pH ABG pO2 ABG HCO3 ABG O2 Saturation ABG Base Excess ABG Hemoglobin Oxyhemoglobin Sodium Potassium Chloride 110.6 H Carbon Dioxide BUN 61 H Creatinine Glucose 109 H POC Glucose 116 H Lactic Acid Calcium Magnesium Iron TIBC Ferritin AST ALT Lactate Dehydrogenase Troponin T C-Reactive Protein Total Protein Albumin Cholesterol LDL Cholesterol Direct HDL Cholesterol Urine WBC (Auto) Vancomycin Trough Coronavirus (PCR) Crossmatch 07/18/19 07/18/19 07/18/19 12:23 18:06 22:20 WBC RBC Hgb Hct MCV MCH MCHC RDW Plt Count Lymph % (Auto) Dane % (Auto) Lymph # Dane # Baso # Seg Neutrophils % Seg Neuts % (Manual) Lymphocytes % (Manual) Monocytes % (Manual) Nucleated RBC % Seg Neutrophils # Seg Neutrophils # Man Lymphocytes # (Manual) Monocytes # (Manual) PT INR D-Dimer ABG pH 7.338 L ABG pO2 135.1 H ABG HCO3 ABG O2 Saturation ABG Base Excess ABG Hemoglobin 9.2 L Oxyhemoglobin Sodium Potassium Chloride Carbon Dioxide BUN Creatinine Glucose POC Glucose 114 H 113 H Lactic Acid Calcium Magnesium Iron TIBC Ferritin AST ALT Lactate Dehydrogenase Troponin T C-Reactive Protein Total Protein Albumin Cholesterol LDL Cholesterol Direct HDL Cholesterol Urine WBC (Auto) Vancomycin Trough Coronavirus (PCR) Crossmatch 07/18/19 07/19/19 07/19/19 23:33 03:45 05:18 WBC RBC Hgb Hct MCV MCH MCHC RDW Plt Count Lymph % (Auto) Dane % (Auto) Lymph # Dane # Baso # Seg Neutrophils % Seg Neuts % (Manual) Lymphocytes % (Manual) Monocytes % (Manual) Nucleated RBC % Seg Neutrophils # Seg Neutrophils # Man Lymphocytes # (Manual) Monocytes # (Manual) PT INR D-Dimer ABG pH 7.342 L ABG pO2 95.0 H ABG HCO3 ABG O2 Saturation ABG Base Excess ABG Hemoglobin 8.5 L Oxyhemoglobin Sodium Potassium Chloride Carbon Dioxide BUN Creatinine Glucose POC Glucose 125 H 111 H Lactic Acid Calcium Magnesium Iron TIBC Ferritin AST ALT Lactate Dehydrogenase Troponin T C-Reactive Protein Total Protein Albumin Cholesterol LDL Cholesterol Direct HDL Cholesterol Urine WBC (Auto) Vancomycin Trough Coronavirus (PCR) Crossmatch 07/19/19 07/19/19 07/19/19 08:45 08:45 11:47 WBC 15.9 H RBC 3.31 L Hgb 9.1 L Hct 28.4 L MCV MCH 27 L MCHC RDW 19.1 H Plt Count 858 H Lymph % (Auto) 4.9 L Dane % (Auto) 8.1 H Lymph # 0.8 L Dane # 1.3 H Baso # Seg Neutrophils % 85.5 H Seg Neuts % (Manual) Lymphocytes % (Manual) Monocytes % (Manual) Nucleated RBC % Seg Neutrophils # 13.6 H Seg Neutrophils # Man Lymphocytes # (Manual) Monocytes # (Manual) PT INR D-Dimer ABG pH ABG pO2 ABG HCO3 ABG O2 Saturation ABG Base Excess ABG Hemoglobin Oxyhemoglobin Sodium Potassium Chloride 111.6 H Carbon Dioxide BUN 50 H Creatinine 0.7 L Glucose 118 H POC Glucose 114 H Lactic Acid Calcium Magnesium Iron TIBC Ferritin AST ALT Lactate Dehydrogenase Troponin T C-Reactive Protein Total Protein Albumin Cholesterol LDL Cholesterol Direct HDL Cholesterol Urine WBC (Auto) Vancomycin Trough Coronavirus (PCR) Crossmatch 07/19/19 07/19/19 07/20/19 18:25 23:44 04:39 WBC RBC Hgb Hct MCV MCH MCHC RDW Plt Count Lymph % (Auto) Dane % (Auto) Lymph # Dane # Baso # Seg Neutrophils % Seg Neuts % (Manual) Lymphocytes % (Manual) Monocytes % (Manual) Nucleated RBC % Seg Neutrophils # Seg Neutrophils # Man Lymphocytes # (Manual) Monocytes # (Manual) PT INR D-Dimer ABG pH ABG pO2 ABG HCO3 ABG O2 Saturation ABG Base Excess ABG Hemoglobin Oxyhemoglobin Sodium Potassium Chloride 110.3 H Carbon Dioxide BUN 44 H Creatinine 0.6 L Glucose 120 H POC Glucose 115 H 117 H Lactic Acid Calcium Magnesium Iron TIBC Ferritin AST ALT Lactate Dehydrogenase Troponin T C-Reactive Protein Total Protein Albumin Cholesterol LDL Cholesterol Direct HDL Cholesterol Urine WBC (Auto) Vancomycin Trough Coronavirus (PCR) Crossmatch 07/20/19 07/21/19 07/21/19 05:30 11:59 17:40 WBC RBC Hgb Hct MCV MCH MCHC RDW Plt Count Lymph % (Auto) Dane % (Auto) Lymph # Dane # Baso # Seg Neutrophils % Seg Neuts % (Manual) Lymphocytes % (Manual) Monocytes % (Manual) Nucleated RBC % Seg Neutrophils # Seg Neutrophils # Man Lymphocytes # (Manual) Monocytes # (Manual) PT INR D-Dimer ABG pH ABG pO2 ABG HCO3 ABG O2 Saturation ABG Base Excess ABG Hemoglobin Oxyhemoglobin Sodium Potassium Chloride Carbon Dioxide BUN Creatinine Glucose POC Glucose 131 H 122 H 125 H Lactic Acid Calcium Magnesium Iron TIBC Ferritin AST ALT Lactate Dehydrogenase Troponin T C-Reactive Protein Total Protein Albumin Cholesterol LDL Cholesterol Direct HDL Cholesterol Urine WBC (Auto) Vancomycin Trough Coronavirus (PCR) Crossmatch 07/22/19 07/22/19 07/22/19 05:38 05:38 12:29 WBC 12.6 H RBC 3.19 L Hgb 8.9 L Hct 27.5 L MCV MCH MCHC RDW 18.9 H Plt Count 1101 H* Lymph % (Auto) Dane % (Auto) 12.2 H Lymph # Dane # 1.5 H Baso # Seg Neutrophils % 72.8 H Seg Neuts % (Manual) 76.0 H Lymphocytes % (Manual) 7.0 L Monocytes % (Manual) 14.0 H Nucleated RBC % 1.0 H Seg Neutrophils # 9.2 H Seg Neutrophils # Man 9.6 H Lymphocytes # (Manual) 0.9 L Monocytes # (Manual) 1.8 H PT INR D-Dimer ABG pH ABG pO2 ABG HCO3 ABG O2 Saturation ABG Base Excess ABG Hemoglobin Oxyhemoglobin Sodium Potassium 3.4 L Chloride Carbon Dioxide BUN 29 H Creatinine 0.5 L Glucose POC Glucose 116 H Lactic Acid Calcium Magnesium Iron TIBC Ferritin AST ALT Lactate Dehydrogenase Troponin T C-Reactive Protein Total Protein Albumin Cholesterol LDL Cholesterol Direct HDL Cholesterol Urine WBC (Auto) Vancomycin Trough Coronavirus (PCR) Crossmatch 07/22/19 07/22/19 07/23/19 18:20 23:51 04:52 WBC RBC Hgb Hct MCV MCH MCHC RDW Plt Count Lymph % (Auto) Dane % (Auto) Lymph # Dane # Baso # Seg Neutrophils % Seg Neuts % (Manual) Lymphocytes % (Manual) Monocytes % (Manual) Nucleated RBC % Seg Neutrophils # Seg Neutrophils # Man Lymphocytes # (Manual) Monocytes # (Manual) PT INR D-Dimer ABG pH ABG pO2 ABG HCO3 ABG O2 Saturation ABG Base Excess ABG Hemoglobin Oxyhemoglobin Sodium Potassium Chloride Carbon Dioxide BUN 24 H Creatinine 0.4 L Glucose POC Glucose 107 H 110 H Lactic Acid Calcium Magnesium Iron TIBC Ferritin AST ALT Lactate Dehydrogenase Troponin T C-Reactive Protein Total Protein Albumin Cholesterol LDL Cholesterol Direct HDL Cholesterol Urine WBC (Auto) Vancomycin Trough Coronavirus (PCR) Crossmatch 07/23/19 07/23/19 07/24/19 06:00 23:15 04:40 WBC RBC Hgb Hct MCV MCH MCHC RDW Plt Count Lymph % (Auto) Dane % (Auto) Lymph # Dane # Baso # Seg Neutrophils % Seg Neuts % (Manual) Lymphocytes % (Manual) Monocytes % (Manual) Nucleated RBC % Seg Neutrophils # Seg Neutrophils # Man Lymphocytes # (Manual) Monocytes # (Manual) PT INR D-Dimer ABG pH ABG pO2 73.5 L ABG HCO3 27.0 H 28.5 H ABG O2 Saturation 94.5 L ABG Base Excess ABG Hemoglobin 9.4 L 8.9 L Oxyhemoglobin 94.0 L 92.7 L Sodium Potassium Chloride Carbon Dioxide BUN Creatinine Glucose POC Glucose 117 H Lactic Acid Calcium Magnesium Iron TIBC Ferritin AST ALT Lactate Dehydrogenase Troponin T C-Reactive Protein Total Protein Albumin Cholesterol LDL Cholesterol Direct HDL Cholesterol Urine WBC (Auto) Vancomycin Trough Coronavirus (PCR) Crossmatch 07/24/19 07/24/19 07/25/19 05:25 12:06 00:16 WBC RBC Hgb Hct MCV MCH MCHC RDW Plt Count Lymph % (Auto) Dane % (Auto) Lymph # Dane # Baso # Seg Neutrophils % Seg Neuts % (Manual) Lymphocytes % (Manual) Monocytes % (Manual) Nucleated RBC % Seg Neutrophils # Seg Neutrophils # Man Lymphocytes # (Manual) Monocytes # (Manual) PT INR D-Dimer ABG pH ABG pO2 ABG HCO3 ABG O2 Saturation ABG Base Excess ABG Hemoglobin Oxyhemoglobin Sodium Potassium Chloride Carbon Dioxide BUN Creatinine Glucose POC Glucose 114 H 108 H 106 H Lactic Acid Calcium Magnesium Iron TIBC Ferritin AST ALT Lactate Dehydrogenase Troponin T C-Reactive Protein Total Protein Albumin Cholesterol LDL Cholesterol Direct HDL Cholesterol Urine WBC (Auto) Vancomycin Trough Coronavirus (PCR) Crossmatch 07/25/19 07/25/19 07/25/19 05:14 05:14 05:17 WBC 17.8 H RBC 3.32 L Hgb 9.2 L Hct 28.6 L MCV MCH MCHC RDW 19.9 H Plt Count 994 H Lymph % (Auto) Dane % (Auto) Lymph # Dane # Baso # Seg Neutrophils % Seg Neuts % (Manual) 82.0 H Lymphocytes % (Manual) 5.0 L Monocytes % (Manual) Nucleated RBC % Seg Neutrophils # Seg Neutrophils # Man 14.6 H Lymphocytes # (Manual) 0.9 L Monocytes # (Manual) 1.2 H PT INR D-Dimer ABG pH ABG pO2 ABG HCO3 ABG O2 Saturation ABG Base Excess ABG Hemoglobin Oxyhemoglobin Sodium Potassium Chloride Carbon Dioxide BUN Creatinine 0.4 L Glucose 110 H POC Glucose 107 H Lactic Acid Calcium Magnesium Iron TIBC Ferritin AST ALT Lactate Dehydrogenase Troponin T C-Reactive Protein Total Protein Albumin Cholesterol LDL Cholesterol Direct HDL Cholesterol Urine WBC (Auto) Vancomycin Trough Coronavirus (PCR) Crossmatch 07/25/19 07/25/19 07/26/19 11:55 23:49 06:01 WBC RBC Hgb Hct MCV MCH MCHC RDW Plt Count Lymph % (Auto) Dane % (Auto) Lymph # Dane # Baso # Seg Neutrophils % Seg Neuts % (Manual) Lymphocytes % (Manual) Monocytes % (Manual) Nucleated RBC % Seg Neutrophils # Seg Neutrophils # Man Lymphocytes # (Manual) Monocytes # (Manual) PT INR D-Dimer ABG pH ABG pO2 ABG HCO3 ABG O2 Saturation ABG Base Excess ABG Hemoglobin Oxyhemoglobin Sodium Potassium Chloride Carbon Dioxide BUN Creatinine Glucose POC Glucose 123 H 118 H 106 H Lactic Acid Calcium Magnesium Iron TIBC Ferritin AST ALT Lactate Dehydrogenase Troponin T C-Reactive Protein Total Protein Albumin Cholesterol LDL Cholesterol Direct HDL Cholesterol Urine WBC (Auto) Vancomycin Trough Coronavirus (PCR) Crossmatch 07/26/19 07/27/19 07/27/19 17:02 00:28 05:16 WBC RBC Hgb Hct MCV MCH MCHC RDW Plt Count Lymph % (Auto) Dane % (Auto) Lymph # Dane # Baso # Seg Neutrophils % Seg Neuts % (Manual) Lymphocytes % (Manual) Monocytes % (Manual) Nucleated RBC % Seg Neutrophils # Seg Neutrophils # Man Lymphocytes # (Manual) Monocytes # (Manual) PT INR D-Dimer ABG pH ABG pO2 63.4 L ABG HCO3 31.3 H ABG O2 Saturation 92.7 L ABG Base Excess 6.3 H ABG Hemoglobin 7.6 L Oxyhemoglobin 90.9 L Sodium Potassium Chloride Carbon Dioxide BUN Creatinine Glucose POC Glucose 116 H 158 H Lactic Acid Calcium Magnesium Iron TIBC Ferritin AST ALT Lactate Dehydrogenase Troponin T C-Reactive Protein Total Protein Albumin Cholesterol LDL Cholesterol Direct HDL Cholesterol Urine WBC (Auto) Vancomycin Trough Coronavirus (PCR) Crossmatch 07/28/19 07/28/19 07/28/19 10:13 10:13 23:54 WBC 18.5 H RBC 3.20 L Hgb 8.8 L Hct 26.8 L MCV MCH 27 L MCHC RDW 19.9 H Plt Count 730 H Lymph % (Auto) Dane % (Auto) Lymph # Dane # Baso # Seg Neutrophils % Seg Neuts % (Manual) Lymphocytes % (Manual) Monocytes % (Manual) Nucleated RBC % Seg Neutrophils # Seg Neutrophils # Man Lymphocytes # (Manual) Monocytes # (Manual) PT INR D-Dimer ABG pH ABG pO2 ABG HCO3 ABG O2 Saturation ABG Base Excess ABG Hemoglobin Oxyhemoglobin Sodium Potassium 3.2 L Chloride 97.5 L Carbon Dioxide 31 H BUN Creatinine 0.5 L Glucose POC Glucose 120 H Lactic Acid Calcium Magnesium Iron TIBC Ferritin AST ALT Lactate Dehydrogenase Troponin T C-Reactive Protein Total Protein Albumin Cholesterol LDL Cholesterol Direct HDL Cholesterol Urine WBC (Auto) Vancomycin Trough Coronavirus (PCR) Crossmatch 07/29/19 07/29/19 07/30/19 11:57 17:43 00:20 WBC RBC Hgb Hct MCV MCH MCHC RDW Plt Count Lymph % (Auto) Dane % (Auto) Lymph # Dane # Baso # Seg Neutrophils % Seg Neuts % (Manual) Lymphocytes % (Manual) Monocytes % (Manual) Nucleated RBC % Seg Neutrophils # Seg Neutrophils # Man Lymphocytes # (Manual) Monocytes # (Manual) PT INR D-Dimer ABG pH ABG pO2 ABG HCO3 ABG O2 Saturation ABG Base Excess ABG Hemoglobin Oxyhemoglobin Sodium Potassium Chloride Carbon Dioxide BUN Creatinine Glucose POC Glucose 112 H 106 H Lactic Acid Calcium Magnesium Iron TIBC Ferritin AST ALT Lactate Dehydrogenase Troponin T C-Reactive Protein Total Protein Albumin Cholesterol LDL Cholesterol Direct HDL Cholesterol Urine WBC (Auto) 63.0 H Vancomycin Trough Coronavirus (PCR) Crossmatch 07/30/19 07/30/19 04:35 04:35 WBC 24.3 H RBC 3.12 L Hgb 8.5 L Hct 26.3 L MCV MCH 27 L MCHC RDW 20.2 H Plt Count 550 H Lymph % (Auto) Dane % (Auto) Lymph # Dane # Baso # Seg Neutrophils % Seg Neuts % (Manual) Lymphocytes % (Manual) Monocytes % (Manual) Nucleated RBC % Seg Neutrophils # Seg Neutrophils # Man Lymphocytes # (Manual) Monocytes # (Manual) PT INR D-Dimer ABG pH ABG pO2 ABG HCO3 ABG O2 Saturation ABG Base Excess ABG Hemoglobin Oxyhemoglobin Sodium Potassium 3.0 L Chloride 96.3 L Carbon Dioxide 32 H BUN Creatinine 0.5 L Glucose POC Glucose Lactic Acid Calcium Magnesium Iron TIBC Ferritin AST ALT Lactate Dehydrogenase Troponin T C-Reactive Protein Total Protein Albumin Cholesterol LDL Cholesterol Direct HDL Cholesterol Urine WBC (Auto) Vancomycin Trough Coronavirus (PCR) Crossmatch Chest x-ray: image reviewed (significant improvement in bilateral infiltrates; ETT in position) Allied health notes reviewed: nursing
[2019-07-30] MEDS ORDERED: SODIUM CHLORIDE 0.9% 1000 ML 1,000 ML ONE (13:28)
[2019-07-30] MEDS: fentaNYL DRIP Premix 2,000 MCG/100 ML BAG IV SCH (18:50)
[2019-07-31] MEDS: fentaNYL DRIP Premix 2,000 MCG/100 ML BAG IV SCH ×2 (04:38→15:35)
[2019-07-31] MEDS: INSULIN LISPRO 100 UNIT/ML SUB-Q SCH ×3 (04:39→15:10)
[2019-07-31 06:12] LABS: Hematocrit 26.1 % (35.5-45.6); Hemoglobin 8.4 gm/dl (11.8-15.2); Mean Corpuscular HGB Conc 32 % (32-34); Mean Corpuscular Volume 84 fl (84-94); Platelet Count 561 K/mm3 (140-440); Red Cell Distribution Width 19.6 % (13.2-15.2)
[2019-07-31 06:26] LABS: Albumin 1.6 g/dL (3.9-5); BUN/Creatinine Ratio 33; Blood Urea Nitrogen 13 mg/dL (9-20); Calcium 8.4 mg/dL (8.4-10.2); Hemolysis Index 4
[2019-07-31 06:34] LABS: Prealbumin 0.037 g/L (0.200-0.400)
[2019-07-31] MEDS: CEFEPIME/NS 1 GM/100 ML 1 GM/100 ML BAG IV SCH ×3 (06:39→21:58)
--- NOTE | 2019-07-31 09:17 | Progress Note ---
Assessment and Plan Cultures: 07/03/2019 urine culture: No growth 07/03/2019 Tracheal aspirate: E.coli 07/29/2019 urine culture: pending 07/30/2019 blood culture: pending A/P: 69-year-old male with CVA, hypertension, dementia, schizophrenia, alcohol use disorder was admitted to the emergency room after being brought in by EMS with progressive shortness of breath and unresponsiveness. He was noted to have ag onal breathing and a faint pulse requiring CPR. It seems patient was on hospice recently, prior to admission. #Shock, likely septic: shock resolved, remains off pressors. Noted new fever and worsening leukocytosis ? source UTI/ penile/scrotal wounds. Very high procal=24 on 07/29. Repeat CXR decreased infiltrates #Penile/scrotal and buttocks wounds: ?cellulitis #New UTI: per documentation initial carroll placed on 07/03, now new carroll? #Severe COVID-19 disease and pneumonia: Markers improving. Completed Plaquenil. Completed Ceftriaxone for treatment E.coli in tracheal aspirate. #Acute respiratory failure: on mechanical ventilation. #Transaminitis: Likely from COVID-19, shock #Multiple skin tears documented on admission Recs: Urology consult - penile edema and ulcer ? cellulitis with carroll - pending Wound care consult - eval progression of wounds ?new wounds - pending exchange carroll if has not been done, per documentation placed on 07/03 f/u urine culture and blood culture Off loading team considering trach Will follow Padmaja Garcia MD Infectious Diseases [employer] [facility] ([facility]) M [phone] O [phone] Subjective Date of service: 07/31/19 Principal diagnosis: Bilateral pneumonia, severe sepsis with septic shock, encephalopathy Interval history: Remains intubated tmax 100.6, no pressors, on sedative Objective - Exam Narrative Exam: General appearance: sedated on the vent Eyes: anicteric sclerae, moist conjunctivae; no lid-lag; PERRLA HENT: Atraumatic; oropharynx ETT Lungs: CTA CV: RRR no murmur Abdomen: Soft, non-tender Extremities: no edema, no cyanosis Skin: No rash. Genital: penile/scrotal ulcer and induration Psych: no agitated Neuro: sedated Carroll - Constitutional Vitals: Vital Signs Temp Pulse Resp BP Pulse Ox 98.7 F 103 H 14 135/73 98 07/31/19 08:00 07/31/19 08:00 07/31/19 08:00 07/31/19 08:00 07/31/19 08:00 Temperature -Last 24 Hours Temperature 98.7 F Temperature 99.9 F Temperature 100.6 F Temperature 98.9 F Temperature 99.9 F Temperature 99.6 F - Labs CBC & Chem 7: 07/31/19 04:42 07/31/19 04:42 Labs: Abnormal lab results 07/29/19 07/31/19 07/31/19 Range/Units Unknown 04:42 04:42 WBC 23.8 H (4.5-11.0) K/mm3 RBC 3.10 L (3.65-5.03) M/mm3 Hgb 8.4 L (11.8-15.2) gm/dl Hct 26.1 L (35.5-45.6) % MCH 27 L (28-32) pg RDW 19.6 H (13.2-15.2) % Plt Count 561 H (140-440) K/mm3 Sodium 135 L (137-145) mmol/L Chloride 93.9 L (98-107) mmol/L Carbon Dioxide 32 H (22-30) mmol/L Creatinine 0.4 L (0.8-1.5) mg/dL Albumin 1.6 L (3.9-5) g/dL Prealbumin 0.037 L (0.200-0.400) g/L Coronavirus (PCR) Positive A (Negative)
[2019-07-31] MEDS: FOLIC ACID 1 MG TAB PO SCH (09:56)
[2019-07-31] MEDS: levETIRAcetam 500 MG/5 ML ORAL LIQD FEEDTUBE SCH ×2 (09:56→21:58)
[2019-07-31] MEDS: ASPIRIN 81 MG TAB CHEW PO SCH (09:57)
[2019-07-31] MEDS: SODIUM HYPOCHLORITE, DAKIN'S 1/2 STRENGTH (0.25%) 473 ML TOPICAL SOLN TP SCH (09:57)
[2019-07-31] MEDS: DOCUSATE SODIUM 100 MG/10 ML ORAL LIQD PO SCH ×2 (09:57→21:58)
[2019-07-31] MEDS: FAMOTIDINE 20 MG TAB PO SCH ×2 (09:57→21:58)
[2019-07-31] MEDS: ENOXAPARIN 40 MG/0.4 ML INJ SUB-Q SCH (09:57)
--- NOTE | 2019-07-31 10:16 | Event Note ---
Date: 07/31/19 Pt chart reviewed. Tm 100.6. Remains on vent. Repeat COVID testing positive. Tracheostomy will need to be delayed for 3-4 weeks and patient retested at that time. Tracheostomy placement to be scheduled when COVID testing is negative. Patient's was updated. Evaluation and treatment of this patient was during the time of the national and state emergency arising from COVID19 coronavirus pandemic. Treatment and procedures performed meet the current and available best practice and guidelines for patient during the COVID pandemic.
--- NOTE | 2019-07-31 13:32 | Progress Note ---
Assessment and Plan Assessment and plan: --COVid positive pneumonia with severe sepsis Received Plaquenil and cefepime, monitor off antibiotics ID following --Septic shock: On Levophed Persistent hypotension, titrate to systolic blood pressure more than 100 -- Acute respiratory Failure with Hypoxia Due to bilateral PNA with COVID 19 infection. On ventilatory support, unable to wean Pulmonary critical following --COPD with exacerbation Likely due to COVID-19 pneumonia Continue scheduled nebs --Anemia, Microcytic persistent s/p total 3 unit of PRBC, today Hb today 9.1 --Pressure Ulcers: POA buttocks, right lateral foot area wound and supportive care --Hyponatremia, resolved --DM type 2: Accu-Chek SCC tube feeding, insulin as needed --h/o HTN Essential, now hypotensive On Levophed --Seizure D/o/CVA/immobility/BIpolar D/o/SCZ Seizure precautions, antiepileptic medications --Severe PCM, TF supportive care, dietary following patient is DNR- Called and verified information Very poor prognosis, Recommend hospice 07/04: COVID +ve, start on plaquinil, called no answer 07/05: transfuse one unit PRBC, Hb dropped to ~6, called and updated 07/06; H&H stable, serum chemistry improved. On mechanical ventilation with high inflammatory markers. Continue Plaquenil and empiric antibiotics. ID following, prognosis remains guarded and extremely poor. 07/07: On mechanical ventilation with high inflammatory markers. Continue Plaquenil and empiric antibiotics. ID following, prognosis remains guarded and extremely poor. 07/08: Called today and verified the CODE STATUS. Patient remains DNR. He is still intubated, with poor prognosis. Continue to follow inflammatory markers. 07/09 wean off from vent as tolerated, completed empiric antibiotic and Plaquenil 07/10 wean off from vent as tolerated. poor prognosis 07/11 hb 6.7 today, transfuse one PRBC. wean off from vent as tolerated. poor prognosis 07/12 remains critically on vent. Hb 6.9 07/13 Hb dropped to 6.6, transfuse 1 unit of PRBC, remains on vent critically ill Hypotensive, fluid bolus, if no improvement start Levophed 07/14; remains anemic with hemoglobin of 6.8, received total 3 units of PRBC Additional 1 unit of PRBC today, stool for occult blood to rule out GI causes Started back on Levophed due to hypotension 07/15; patient remains critically ill, hypotensive on Levophed 07/16: Today remains intubated on vent, persistent hypotension on Levophed 07/17; clinically no change, pressor dependent[on Levophed] DNR status 07/18: Patient remains hypotensive requiring Levophed, intubated on vent Unable to wean, critically ill. DNR 07/20/2019 Patient remains hypotensive requiring Levophed, intubated on vent. Patient currently with AC mode ventilation, rate 20, tidal volume 500, FiO2 40% and PEEP 6. Patient is a poor prognosis and apparently was on hospice recently. 07/21/2019. Patient with PEG tube that was clogged yesterday. surgery evaluated the patient and noted Very long PEG tubing with thick material inside. The ent celsa tube was stripped and a large amount of formed tube feed was expressed. The tube was then flushed with sprite and flushed easily. Tube clamped. Patient currently with AC mode ventilation, rate 20, tidal volume 500, FiO2 40% and PEEP 6. Patient is a poor prognosis and apparently was on hospice recently. 07/22/2019. Patient currently with AC mode ventilation, rate 20, tidal volume 500, FiO2 30% and PEEP 6. Patient on sedation with fentanyl drip. Continue Levophed to maintain MAP greater than 65. Patient is a poor prognosis and apparently was on hospice recently. 07/23/2019. Patient currently with AC mode ventilation, rate 20, tidal volume 500, FiO2 30% and PEEP 6. Patient on sedation with fentanyl drip. Continue Levophed to maintain MAP greater than 65. Patient is a poor prognosis and apparently was on hospice recently. 07/24/2019 Patient with Covid-19 infection with pneumonia, acute respiratory failure, intubated on ventilator. No more fever. Continue current management. 07/25/2019 Patient with Covid-19 infection with pneumonia, acute respiratory failure, intubated on ventilator. fever is now resolved. Sedated with propofol 07/26/2019 Patient with covid-19 infection. Still intubated, on vent. 07/27/2019 Patient with Covid-19. he is still critically ill. patient has DNR order. 07/28/2019 Patient with Covid-19 infection. Will repeat labs today. Surgeon consulted for tracheostomy. 07/29/2019 Patient with Covid-19. hypokalemia yesterday, replaced. Will recheck labs in am. 07/30/2019 patient with Covid-19 infection with acute respiratory failure. He is intubated on ventilator. has hypokalemia. replace and recheck BMP in am. patient has UTI, started on Cefepime. 07/31/2019. patient with Covid-19 infection with acute respiratory failure. He is intubated on ventilator. Repeat chest x-ray reveals decreased infiltrates. urology consultation and wound care consult per ID. Follow-up urine and blood culture. Tracheostomy per surgery. The high probability of a clinically significant, sudden or life threatening deterioration of the [respiratory, CVS, [employer]] system(s) required my full and direct attention, intervention and personal management. The aggregate critical care time was [32] minutes. This time is in addition to time spent performing reported procedures but includes the fol lowing: [x] Data Review and interpretation [x] Patient assessment and monitoring of vital signs [x] Documentation [x] Medication orders and management History Interval history: 69-year-old male patient with PMH of CVA with RHP, HTN, DM2, SCZ, Dementia, Alcohol use D/o, Seizure D/O, presents to the emergency department via EMS from home with progressive SOB and impending espiratory failure with an unresponsive . PT was intubated was admitted through emergency room to ICU treated for sepsis, b/l PNA, acute respiratory failure received antibiotics. Patient was tested positive for COVID19. Evaluated by ID , received antibiotics Plaquenil, and inflammatory markers were checked and followed. Patient was hypotensive requiring Levophed, continues to be hypotensive currently on Levophed, unable to wean remains intubated on ventilatory support, critically ill, DNR status however family wants full treatment. Hospitalist Physical - Constitutional Vitals: Temp Pulse Resp BP Pulse Ox 97.9 F 113 H 25 H 134/73 97 07/31/19 12:00 07/31/19 12:23 07/31/19 12:23 07/31/19 12:23 07/31/19 12:23 General appearance: Present: severe distress, well-nourished, other (Orally intubated on vent) - EENT Eyes: Present: PERRL, EOM intact ENT: hearing intact, clear oral mucosa, dentition normal - Neck Neck: Present: supple, normal ROM - Respiratory Respiratory effort: normal Respiratory: bilateral: CTA - Cardiovascular Rhythm: regular Heart Sounds: Present: S1 & S2. Absent: gallop, rub - Extremities Extremities: no ischemia, No edema, Full ROM - Abdominal General gastrointestinal: soft, non-tender, non-distended, normal bowel sounds - Integumentary Integumentary: Present: clear, warm, dry - Neurologic Neurologic: CNII-XII intact, moves all extremities Results - Labs CBC & Chem 7: 07/31/19 04:42 07/31/19 04:42 Labs: Laboratory Last Values WBC 23.8 K/mm3 (4.5-11.0) H 07/31/19 04:42 RBC 3.10 M/mm3 (3.65-5.03) L 07/31/19 04:42 Hgb 8.4 gm/dl (11.8-15.2) L 07/31/19 04:42 Hct 26.1 % (35.5-45.6) L 07/31/19 04:42 MCV 84 fl (84-94) 07/31/19 04:42 MCH 27 pg (28-32) L 07/31/19 04:42 MCHC 32 % (32-34) 07/31/19 04:42 RDW 19.6 % (13.2-15.2) H 07/31/19 04:42 Plt Count 561 K/mm3 (140-440) H 07/31/19 04:42 Lymph % (Auto) 4.9 % (13.4-35.0) L 07/19/19 08:45 Harper % (Auto) 12.2 % (0.0-7.3) H 07/22/19 05:38 Eos % (Auto) 1.0 % (0.0-4.3) 07/19/19 08:45 Baso % (Auto) 0.5 % (0.0-1.8) 07/19/19 08:45 Lymph # 0.8 K/mm3 (1.2-5.4) L 07/19/19 08:45 Harper # 1.5 K/mm3 (0.0-0.8) H 07/22/19 05:38 Eos # 0.2 K/mm3 (0.0-0.4) 07/19/19 08:45 Baso # 0.1 K/mm3 (0.0-0.1) 07/19/19 08:45 Add Manual Diff Complete 07/25/19 05:14 Total Counted 100 07/25/19 05:14 Seg Neutrophils % 72.8 % (40.0-70.0) H 07/22/19 05:38 Seg Neuts % (Manual) 82.0 % (40.0-70.0) H 07/25/19 05:14 Band Neutrophils % 3.0 % 07/25/19 05:14 Lymphocytes % (Manual) 5.0 % (13.4-35.0) L 07/25/19 05:14 Reactive Lymphs % (Man) 0 % 07/25/19 05:14 Monocytes % (Manual) 7.0 % (0.0-7.3) 07/25/19 05:14 Eosinophils % (Manual) 2.0 % (0.0-4.3) 07/25/19 05:14 Basophils % (Manual) 0 % (0.0-1.8) 07/25/19 05:14 Metamyelocytes % 1.0 % 07/25/19 05:14 Myelocytes % 0 % 07/25/19 05:14 Promyelocytes % 0 % 07/25/19 05:14 Blast Cells % 0 % 07/25/19 05:14 Nucleated RBC % Not Reportable 07/25/19 05:14 Seg Neutrophils # 9.2 K/mm3 (1.8-7.7) H 07/22/19 05:38 Seg Neutrophils # Man 14.6 K/mm3 (1.8-7.7) H 07/25/19 05:14 Band Neutrophils # 0.5 K/mm3 07/25/19 05:14 Lymphocytes # (Manual) 0.9 K/mm3 (1.2-5.4) L 07/25/19 05:14 Abs React Lymphs (Man) 0.0 K/mm3 07/25/19 05:14 Monocytes # (Manual) 1.2 K/mm3 (0.0-0.8) H 07/25/19 05:14 Eosinophils # (Manual) 0.4 K/mm3 (0.0-0.4) 07/25/19 05:14 Basophils # (Manual) 0.0 K/mm3 (0.0-0.1) 07/25/19 05:14 Metamyelocytes # 0.2 K/mm3 07/25/19 05:14 Myelocytes # 0.0 K/mm3 07/25/19 05:14 Promyelocytes # 0.0 K/mm3 07/25/19 05:14 Blast Cells # 0.0 K/mm3 07/25/19 05:14 WBC Morphology Not Reportable 07/25/19 05:14 Hypersegmented Neuts Not Reportable 07/25/19 05:14 Hyposegmented Neuts Not Reportable 07/25/19 05:14 Hypogranular Neuts Not Reportable 07/25/19 05:14 Smudge Cells Not Reportable 07/25/19 05:14 Toxic Granulation Not Reportable 07/25/19 05:14 Toxic Vacuolation Not Reportable 07/25/19 05:14 Dohle Bodies Not Reportable 07/25/19 05:14 Pelger-Huet Anomaly Not Reportable 07/25/19 05:14 Mendy Rods Not Reportable 07/25/19 05:14 Platelet Estimate Consistent w auto 07/25/19 05:14 Clumped Platelets Not Reportable 07/25/19 05:14 Plt Clumps, EDTA Not Reportable 07/25/19 05:14 Large Platelets Not Reportable 07/25/19 05:14 Giant Platelets Not Reportable 07/25/19 05:14 Platelet Satelliting Not Reportable 07/25/19 05:14 Plt Morphology Comment Not Reportable 07/25/19 05:14 RBC Morphology Not Reportable 07/25/19 05:14 Dimorphic RBCs Not Reportable 07/25/19 05:14 Polychromasia Rare 07/25/19 05:14 Hypochromasia Rare 07/25/19 05:14 Poikilocytosis Not Reportable 07/25/19 05:14 Anisocytosis Few 07/25/19 05:14 Microcytosis Not Reportable 07/25/19 05:14 Macrocytosis Not Reportable 07/25/19 05:14 Spherocytes Not Reportable 07/25/19 05:14 Pappenheimer Bodies Not Reportable 07/25/19 05:14 Sickle Cells Not Reportable 07/25/19 05:14 Target Cells Not Reportable 07/25/19 05:14 Tear Drop Cells Not Reportable 07/25/19 05:14 Ovalocytes Not Reportable 07/25/19 05:14 Helmet Cells Not Reportable 07/25/19 05:14 [place] Bodies Not Reportable 07/25/19 05:14 [place] Rings Not Reportable 07/25/19 05:14 Joanne Cells Not Reportable 07/25/19 05:14 Bite Cells Not Reportable 07/25/19 05:14 Crenated Cell Not Reportable 07/25/19 05:14 Elliptocytes Rare 07/25/19 05:14 Acanthocytes (Spur) Not Reportable 07/25/19 05:14 Rouleaux Not Reportable 07/25/19 05:14 Hemoglobin C Crystals Not Reportable 07/25/19 05:14 Schistocytes Not Reportable 07/25/19 05:14 Malaria parasites Not Reportable 07/25/19 05:14 Jeevan Bodies Not Reportable 07/25/19 05:14 Hem Pathologist Commnt No 07/25/19 05:14 PT 16.0 Sec. (12.2-14.9) H 07/03/19 22:20 INR 1.26 (0.87-1.13) H 07/03/19 22:20 D-Dimer 1142.18 ng/mlDDU (0-234) H 07/08/19 00:45 ABG pH 7.430 pH Units (7.350-7.450) 07/27/19 05:16 ABG pCO2 48.2 mm Hg 07/27/19 05:16 ABG pO2 63.4 mm Hg (80.0-90.0) L 07/27/19 05:16 ABG HCO3 31.3 mmol/L (20.0-26.0) H 07/27/19 05:16 ABG O2 Saturation 92.7 % (95.0-99.0) L 07/27/19 05:16 ABG O2 Content 9.8 (0.0-44) 07/27/19 05:16 ABG Base Excess 6.3 mmol/L (-2.0-3.0) H 07/27/19 05:16 ABG Hemoglobin 7.6 gm/dl (14.0-18.0) L 07/27/19 05:16 ABG Carboxyhemoglobin 1.6 % (0.0-5.0) 07/27/19 05:16 ABG Methemoglobin 0.4 % (0.0-1.5) 07/27/19 05:16 Oxyhemoglobin 90.9 % (95.0-99.0) L 07/27/19 05:16 FiO2 25 % 07/27/19 05:16 Sodium 135 mmol/L (137-145) L 07/31/19 04:42 Potassium 3.7 mmol/L (3.6-5.0) D 07/31/19 04:42 Chloride 93.9 mmol/L (98-107) L 07/31/19 04:42 Carbon Dioxide 32 mmol/L (22-30) H 07/31/19 04:42 Anion Gap 13 mmol/L 07/31/19 04:42 BUN 13 mg/dL (9-20) 07/31/19 04:42 Creatinine 0.4 mg/dL (0.8-1.5) L 07/31/19 04:42 Estimated GFR > 60 ml/min 07/31/19 04:42 BUN/Creatinine Ratio 33 % 07/31/19 04:42 Glucose 82 mg/dL (75-100) 07/31/19 04:42 POC Glucose 116 (70-105) H 07/31/19 11:33 Osmolality 268 Mosm/kg 07/05/19 04:00 Lactic Acid 3.30 mmol/L (0.7-2.0) H* 07/04/19 07:05 Uric Acid 7.2 mg/dL (3.5-7.6) 07/05/19 04:00 Calcium 8.4 mg/dL (8.4-10.2) 07/31/19 04:42 Phosphorus 3.60 mg/dL (2.5-4.5) 07/05/19 04:00 Magnesium 1.80 mg/dL (1.7-2.3) 07/11/19 05:14 Iron 9 ug/dL (49-181) L 07/04/19 07:05 TIBC 97 mcg/dL (250-450) L 07/04/19 07:05 Ferritin 839.0 ng/mL (13.0-400.0) H 07/08/19 00:45 Total Bilirubin 0.20 mg/dL (0.1-1.2) 07/04/19 07:05 AST 73 units/L (5-40) H 07/04/19 07:05 ALT 91 units/L (7-56) H 07/04/19 07:05 Alkaline Phosphatase 114 units/L (35-129) 07/04/19 07:05 Ammonia 35.0 umol/L (25-60) 07/03/19 23:58 Lactate Dehydrogenase 277 units/L (91-180) H 07/10/19 04:00 Troponin T 0.013 ng/mL (0.00-0.029) 07/04/19 07:05 C-Reactive Protein 15.10 mg/dL (0.00-1.30) H 07/10/19 04:00 Total Protein 5.5 g/dL (6.3-8.2) L 07/04/19 07:05 Albumin 1.6 g/dL (3.9-5) L 07/31/19 04:42 Albumin/Globulin Ratio 0.6 % 07/04/19 07:05 Prealbumin 0.037 g/L (0.200-0.400) L 07/31/19 04:42 Triglycerides 33 mg/dL (2-149) 07/03/19 19:57 Cholesterol 47 mg/dL (50-199) L 07/03/19 19:57 LDL Cholesterol Direct 25 mg/dL (50-130) L 07/03/19 19:57 HDL Cholesterol 20 mg/dL (40-59) L 07/03/19 19:57 Cholesterol/HDL Ratio 2.35 % 07/03/19 19:57 Procalcitonin 24.82 ng/mL (<0.15) 07/30/19 12:59 TSH 2.170 mlU/mL (0.270-4.200) 07/03/19 22:20 Total Cortisol 28.0 mcg/dL () 07/05/19 10:11 Urine Color Yellow (Yellow) 07/29/19 11:57 Urine Turbidity Clear (Clear) 07/29/19 11:57 Urine pH 7.0 (5.0-7.0) 07/29/19 11:57 Ur Specific [place] 1.012 (1.003-1.030) 07/29/19 11:57 Urine Protein <15 mg/dl mg/dL (Negative) 07/29/19 11:57 Urine Glucose (UA) Neg mg/dL (Negative) 07/29/19 11:57 Urine Ketones Neg mg/dL (Negative) 07/29/19 11:57 Urine Blood Sm (Negative) 07/29/19 11:57 Urine Nitrite Neg (Negative) 07/29/19 11:57 Urine Bilirubin Neg (Negative) 07/29/19 11:57 Urine Urobilinogen 4.0 mg/dL (<2.0) 07/29/19 11:57 Ur Leukocyte Esterase Mod (Negative) 07/29/19 11:57 Urine WBC (Auto) 63.0 /HPF (0.0-6.0) H 07/29/19 11:57 Urine RBC (Auto) 14.0 /HPF (0.0-6.0) 07/29/19 11:57 U Epithel Cells (Auto) < 1.0 /HPF (0-13.0) 07/29/19 11:57 Urine Bacteria (Auto) 1+ /HPF (Negative) 07/29/19 11:57 Urine WBC Clumps Few /HPF 07/03/19 21:13 Urine Mucus Few /HPF 07/03/19 21:13 Urine Osmolality 293 Mosm/kg 07/05/19 08:15 Vancomycin Trough 23.2 ug/mL (5.0-20.0) H 07/05/19 17:54 Urine Opiates Screen Presumptive negative 07/03/19 21:13 Urine Methadone Screen Presumptive negative 07/03/19 21:13 Ur Barbiturates Screen Presumptive negative 07/03/19 21:13 Ur Phencyclidine Scrn Presumptive negative 07/03/19 21:13 Ur Amphetamines Screen Presumptive negative 07/03/19 21:13 U Benzodiazepines Scrn Presumptive negative 07/03/19 21:13 Urine Cocaine Screen Presumptive negative 07/03/19 21:13 U Marijuana (THC) Screen Presumptive negative 07/03/19 21:13 Drugs of Abuse Note Disclamer 07/03/19 21:13 Plasma/Serum Alcohol < 0.01 % (0-0.07) 07/03/19 23:58 Coronavirus (PCR) Positive (Negative) A 07/29/19 Unknown Blood Type B POSITIVE 07/12/19 08:49 Antibody Screen Negative 07/12/19 08:49 Crossmatch See Detail 07/12/19 08:49 Microbiology: Microbiology 07/29/19 11:57 Urine,Clean Catch Urine Culture - Preliminary 07/30/19 12:59 Peripheral/Venous Blood Culture - Preliminary Culture in Progress 07/30/19 12:59 Peripheral/Venous Blood Culture - Preliminary Culture in Progress Wright/IV: Voiding Method Indwelling Catheter IV Catheter Type [Left Upper Mid-line arm] IV Catheter Type [Right INT / Saline Lock Forearm] IV Catheter Type [Right Hand] INT / Saline Lock IV Catheter Type [Right CVL Femoral] IV Catheter Type [Left INT / Saline Lock External Jugular] Active Medications - Current Medications Current Medications: Generic Name Dose Route Start Last Admin Trade Name Freq PRN Reason Stop Dose Admin Acetaminophen 650 mg 07/04/19 04:24 Tylenol [place] Q6H PRN Pain MILD(1-3)/Fever >100.5/MURO Acetaminophen 650 mg 07/10/19 04:00 07/29/19 12:00 Tylenol PO 650 mg Q6HR PRN Administration Pain, Mild (1-3) FEVER Lipase/Protease/Amylase 1 each 07/04/19 10:04 07/20/19 06:15 Pancre[place] 10,500 Unit FEEDTUBE 1 each PRN PRN Administration For Clogged Feeding Tube Aspirin 81 mg 07/05/19 10:00 07/31/19 09:57 Baby Aspirin PO 81 mg QDAY TAMMIE Administration Dextrose 50 ml 07/04/19 06:54 D50w (25gm) Syringe IV Q30MIN PRN Hypoglycemia Protocol Docusate Sodium 100 mg 07/10/19 10:00 07/31/19 09:57 Colace PO 100 mg BID TAMMIE Administration Enoxaparin Sodium 40 mg 07/24/19 10:00 07/31/19 09:57 Enoxaparin SUB-Q 40 mg QDAY@1000 TAMMIE Administration Famotidine 20 mg 07/23/19 22:00 07/31/19 09:57 Pepcid PO 20 mg BID TAMMIE Administration Fentanyl 50 mcg 07/21/19 15:18 Sublimaze IV Q10MIN PRN ANALGESIA Folic Acid 1 mg 07/05/19 10:00 07/31/19 09:56 Folvite PO 1 mg QDAY TAMMIE Administration Hydrophilic Ointment 1 applic 07/03/19 19:56 07/05/19 17:42 Vaseline Lip Therapy TP 1 applic Q2HR PRN Administration Dry Lips Norepinephrine 4 mg in 250 mls @ 7.5 mls/hr 07/03/19 23:00 07/20/19 01:00 Levophed Drip 4 Mg/Ns 250 Ml IV Infused TITR TAMMIE Titration Protocol 2 MCG/MIN Fentanyl Citrate 2,000 mcg in 100 mls @ 4.75 mls/hr 07/21/19 16:00 07/31/19 04:38 Fentanyl Drip Premix IV 2 mcg/kg/hr TITR TAMMIE 9.5 mls/hr Administration Protocol 1 MCG/KG/HR Cefepime HCl 1 gm in 100 mls @ 200 mls/hr 07/29/19 14:00 07/31/19 06:39 Cefepime/Ns 1 Gm/100 Ml IV 200 mls/hr Q8HR TAMMIE Administration Protocol Insulin Human Lispro 0 unit 07/07/19 12:00 07/31/19 06:03 Humalog SUB-Q Not Given Q6HR [facility] Protocol Levetiracetam 750 mg 07/06/19 11:00 07/31/19 09:56 Keppra FEEDTUBE 750 mg Q12HR TAMMIE Administration Metoprolol Tartrate 5 mg 07/12/19 15:08 07/29/19 07:30 Metoprolol IV 5 mg Q6HR PRN Administration Tachyarrhythmias Multi-Ingred Cream/Lotion/Oil/Oint 1 applic 07/03/19 19:56 07/05/19 13:19 Artificial Tears Ophth Oint OU 1 applic Q4HR PRN Administration Dry Eye(s) Naloxone HCl 0.1 mg 07/04/19 04:24 Naloxone IV Q2MIN PRN Res Rate </= 8 or 02 SAT < 92% Oxycodone/Acetaminophen 1 tab 07/19/19 14:17 Percocet 5/325 PO Q4H PRN Pain, Moderate (4-6) Scopolamine 1 each 07/10/19 11:00 07/28/19 11:30 Transderm-Scop TD 1 each Q3D TAMMIE Administration Simple Syrup 15 ml 07/04/19 10:04 07/10/19 21:56 Simple Syrup FEEDTUBE 15 ml PRN PRN Administration Hypoglycemia Simple Syrup 30 ml 07/04/19 10:04 Simple Syrup FEEDTUBE PRN PRN Hypoglycemia Sodium Bicarbonate 325 mg 07/04/19 10:04 07/20/19 10:20 Sodium Bicarbonate FEEDTUBE 325 mg PRN PRN Administration For Clogged Feeding Tube Sodium Chloride 10 ml 07/04/19 10:00 07/31/19 09:58 Sodium Chloride Flush Syringe 10 Ml IV 10 ml BID TAMMIE Administration Sodium Chloride 10 ml 07/04/19 04:24 Sodium Chloride Flush Syringe 10 Ml IV PRN PRN LINE FLUSH Sodium Hypochlorite 1 applic 07/10/19 14:00 07/31/19 09:57 Dakin's Half Strength TP 1 applicatio BID TAMMIE Administration Nutrition/Malnutrition Assess - Dietary Evaluation Nutrition/Malnutrition Findings: Nutrition Notes Start: 07/04/19 09:17 Freq: Status: Active Protocol: Document 07/30/19 14:27 LM (Rec: 07/30/19 14:33 LM [id number]) Nutrition Notes Initial or Follow up Reassessment Current Diagnosis Acute Kidney Injury,COPD, Decubitus(Pressure Ulcer), Diabetes,Hypertension Other Pertinent Diagnosis COVID-19 (+), pneu, seizures, schizophrenia, Buttock and R foot PU, Current Diet TF - Nepro at 45ml/hr Labs/Tests K 3 Pertinent Medications KCl Height 5 ft 11 in Weight 97 kg [place] Body Weight (kg) 78.18 BMI 29.8 Weight Status Overweight Subjective/Other Information Pt tolerating TF at goal. Pt to be getting trach pending COVID-19 test. Percent of energy/protein needs met: 100%/86% Burn Absent Trauma Absent Current % PO Negligible Minimum of two criteria No physical signs of malnutrition #2 Nutrition Diagnosis Increased nutrient needs ( specify in comment below) Diagnosis Progress(for reassessment Continues documentation) #1 Nutrition Diagnosis Inadequate oral intake Diagnosis Progress(for reassessment Continues documentation) Is patient on ventilator? Yes Is Patient Ambulatory and/or Out of Bed No REE-([place]-[facility]. Jeor-confined to bed) 2108.112 Kcal/Kg value to use for calculation 20 Approximate Energy Requirements Using 1940 kcal/Kg Calculation Used for Recommendations Kcal/kg Additional Notes Use pro needs based on wt from previous assessment - current wt likely related to fluid retention Protein: 101-168g (1.2-2g/kg) Fluid: 1 ml/kcal or per MD Nutrition Intervention Change Diet Order: Continue TF Nutrition Support: Nepro 1.8 at 45ml/hr Flush 200ml q4h Kcal 1,944 Protein (gm) 87 Fluid (mL) 785 Goal #1 TF tolerance Goal #2 TF to meet at least 75% of energy and protein needs Anticipated Discharge Needs: unable to determine at this time Follow-Up By: 08/01/19 Additional Comments F/U for TF tolerance, K
--- NOTE | 2019-07-31 14:23 | Progress Note ---
Assessment and Plan Acute hypoxemic respiratory failure on MVS Severe sepsis with Shock. Bilateral Pneumonia. PUI coronavirus-19 infection. Acute possibly on chronic encephalopathy. Oropharyngeal dysphagia. Anemia. Decubitus ulcers Diabetes type 2. Hypertension. Leukocytosis. Anemia that is microcytic. Elevated serum transaminases. [id number] metabolic acidosis. Lactic acidosis. Severe protein-calorie malnutrition - repeat COVID-19 testing next week / in 7 days - surgery evaluation ongoing for tracheostomy placement (await negative COVID test) - continue care as below otherwise - continue fentanyl gtt for pain control / sedation - continue to wean supplemental oxygen for target O2 sat's > 90% acutely - continue daily SAT's and SBT assessment as tolerated - VAP bundle addressed - continue lung protective strategies - continue bronchodilators with pulmonary hygiene per RT - wean per pulmonary driven protocols otherwise - prn Levophed for target MAP > 65 mmHg - continue airborne and contact COVID-19 precautions - COVID-19 test positive - complete anti-infectives and de-escalate per ID recommendations - continue wound care per WCT - sedation prn for target RASS 0 to -1 - accuchecks with glycemic control per SSI (While critically ill target blood glucose of 140-180 mg/dL; avoid hypoglycemia) - to avoid benzodiazepine's, reduce the possibility of delirium - prn analgesia per CPOT score - Maintenance of sleep-wake cycle, avoid delirium - continue enteral nutritional support at goal rate as tolerated - G.I. & VTE prophylaxis - PT/OT/ROM exercises - continue mobility protocols for pressure ulcer prophylaxis - Monitor hemodynamics closely - continue other care per attending / other consultants - discharge planning ongoing concurrently .... Re-evaluate in am & prn CONDITION: CRITICAL PROGNOSIS: GUARDED CODE STATUS: FULL CODE The high probability of a clinically significant, sudden or life-threatening deterioration of the [respiratory & cardiovascular] system(s) required my full and direct attention, intervention and personal management. The aggregate critical care time was [35] minutes without overlap. Time includes spent on; [x] Data Review and interpretation [x] Patient assessment and monitoring of vital signs [x] Documentation [x] Medication orders and management Subjective Date of service: 07/31/19 Principal diagnosis: Bilateral pneumonia, severe sepsis with septic shock, encephalopathy Interval history: Patient is seen today for: Ac hypoxemic Resp failure on MVS; Severe sepsis with Shock; Ivan. Pneumonia; PUI coronavirus-19 infection. Seen and examined at bedside; 24hour events reviewed; nursing and respiratory care staff consulted; no adverse overnight events reported to me; resting in bed; remains on MVS; remains a tenuous wean; AMS is persistent; no new issues otherwise Objective Vital Signs - 12hr 07/31/19 07/31/19 07/31/19 02:30 03:00 03:30 Temperature Pulse Rate 100 H 101 H 105 H Pulse Rate [ From Monitor] Pulse Rate [ Left Dorsalis Pedis] Pulse Rate [ Left Radial] Pulse Rate [ Right Dorsalis Pedis] Pulse Rate [ Right Radial] Respiratory 14 13 14 Rate Blood Pressure 146/78 148/80 147/79 O2 Sat by Pulse 100 100 99 Oximetry 07/31/19 07/31/19 07/31/19 03:43 04:00 04:30 Temperature 99.9 F H Pulse Rate 115 H 110 H Pulse Rate [ 102 H From Monitor] Pulse Rate [ 102 H Left Dorsalis Pedis] Pulse Rate [ 102 H Left Radial] Pulse Rate [ 102 H Right Dorsalis Pedis] Pulse Rate [ 102 H Right Radial] Respiratory 15 13 Rate Blood Pressure 155/83 146/80 O2 Sat by Pulse 98 99 Oximetry 07/31/19 07/31/19 07/31/19 05:00 05:30 06:00 Temperature Pulse Rate 105 H 100 H 98 H Pulse Rate [ From Monitor] Pulse Rate [ Left Dorsalis Pedis] Pulse Rate [ Left Radial] Pulse Rate [ Right Dorsalis Pedis] Pulse Rate [ Right Radial] Respiratory 14 14 14 Rate Blood Pressure 141/73 140/75 138/68 O2 Sat by Pulse 99 98 98 Oximetry 07/31/19 07/31/19 07/31/19 06:30 07:00 07:30 Temperature Pulse Rate 100 H 99 H 102 H Pulse Rate [ From Monitor] Pulse Rate [ Left Dorsalis Pedis] Pulse Rate [ Left Radial] Pulse Rate [ Right Dorsalis Pedis] Pulse Rate [ Right Radial] Respiratory 14 14 14 Rate Blood Pressure 133/72 131/69 134/74 O2 Sat by Pulse 97 97 98 Oximetry 07/31/19 07/31/19 07/31/19 08:00 08:30 09:00 Temperature 98.7 F Pulse Rate 101 H 102 H 103 H Pulse Rate [ 103 H From Monitor] Pulse Rate [ 103 H Left Dorsalis Pedis] Pulse Rate [ 103 H Left Radial] Pulse Rate [ 103 H Right Dorsalis Pedis] Pulse Rate [ 103 H Right Radial] Respiratory 14 14 14 Rate Blood Pressure 135/73 133/73 134/75 O2 Sat by Pulse 98 98 98 Oximetry 07/31/19 07/31/19 07/31/19 09:16 09:30 10:00 Temperature Pulse Rate 113 H 109 H 110 H Pulse Rate [ From Monitor] Pulse Rate [ Left Dorsalis Pedis] Pulse Rate [ Left Radial] Pulse Rate [ Right Dorsalis Pedis] Pulse Rate [ Right Radial] Respiratory 19 15 16 Rate Blood Pressure 134/75 130/72 137/74 O2 Sat by Pulse 98 97 97 Oximetry 07/31/19 07/31/19 07/31/19 10:30 11:00 11:30 Temperature Pulse Rate 114 H 114 H 112 H Pulse Rate [ From Monitor] Pulse Rate [ Left Dorsalis Pedis] Pulse Rate [ Left Radial] Pulse Rate [ Right Dorsalis Pedis] Pulse Rate [ Right Radial] Respiratory 17 15 14 Rate Blood Pressure 143/76 143/76 132/74 O2 Sat by Pulse 97 95 97 Oximetry 07/31/19 07/31/19 12:00 12:23 Temperature 97.9 F Pulse Rate 112 H 113 H Pulse Rate [ From Monitor] Pulse Rate [ Left Dorsalis Pedis] Pulse Rate [ Left Radial] Pulse Rate [ Right Dorsalis Pedis] Pulse Rate [ Right Radial] Respiratory 14 25 H Rate Blood Pressure 134/73 134/73 O2 Sat by Pulse 98 97 Oximetry Constitutional: appears uncomfortable, other (eelderly and chronically ill looking AAM, normocep[krystina;ic with mildly increased respiratory effort at rest) Eyes: non-icteric ENT: oropharynx moist, other (ETT 24 cm Pawan) Neck: supple, no lymphadenopathy, no JVD Effort: very labored Ascultation: Bilateral: diminished breath sounds, rhonchi Percussion: Bilateral: not dull Cardiovascular: regular rate and rhythm Gastrointestinal: normoactive bowel sounds, soft, non-tender, non-distended, other (+ PEG tube with mild TF leakage) Integumentary: decubitus ulcer Extremities: no cyanosis, no edema, pink and warm, pulses normal Neurologic: unable to assess Psychiatric: other (Unable to assess re: AMS) CBC and BMP: 08/01/19 04:57 08/01/19 04:57 ABG, PT/INR, D-dimer: ABG ABG pH 7.430 pH Units (7.350-7.450) 07/27/19 05:16 ABG pCO2 48.2 mm Hg 07/27/19 05:16 ABG pO2 63.4 mm Hg (80.0-90.0) L 07/27/19 05:16 ABG O2 Saturation 92.7 % (95.0-99.0) L 07/27/19 05:16 PT/INR, D-dimer PT 16.0 Sec. (12.2-14.9) H 07/03/19 22:20 INR 1.26 (0.87-1.13) H 07/03/19 22:20 D-Dimer 1142.18 ng/mlDDU (0-234) H 07/08/19 00:45 Abnormal lab findings: Abnormal Labs 07/03/19 07/03/19 07/03/19 19:57 21:10 21:13 WBC RBC Hgb Hct MCV MCH MCHC RDW Plt Count Lymph % (Auto) [place] % (Auto) Lymph # [place] # Baso # Seg Neutrophils % Seg Neuts % (Manual) Lymphocytes % (Manual) Monocytes % (Manual) Nucleated RBC % Seg Neutrophils # Seg Neutrophils # Man Lymphocytes # (Manual) Monocytes # (Manual) PT INR D-Dimer ABG pH 7.238 L ABG pO2 210.8 H ABG HCO3 15.4 L ABG O2 Saturation 99.2 H ABG Base Excess -11.1 L ABG Hemoglobin 8.0 L Oxyhemoglobin Sodium 124 L Potassium Chloride 92.9 L Carbon Dioxide 10 L BUN 23 H Creatinine 0.5 L Glucose 118 H POC Glucose Lactic Acid Calcium 7.0 L Magnesium Iron TIBC Ferritin AST 70 H ALT 88 H Lactate Dehydrogenase Troponin T 0.032 H C-Reactive Protein Total Protein 5.0 L Albumin 1.8 L Prealbumin Cholesterol 47 L LDL Cholesterol Direct 25 L HDL Cholesterol 20 L Urine WBC (Auto) 12.0 H Vancomycin Trough Coronavirus (PCR) Crossmatch 07/03/19 07/03/19 07/03/19 22:20 22:20 22:20 WBC 30.5 H RBC 2.96 L Hgb 7.7 L Hct 23.9 L MCV 81 L MCH 26 L MCHC RDW 18.6 H Plt Count 459 H Lymph % (Auto) [place] % (Auto) Lymph # [place] # Baso # Seg Neutrophils % Seg Neuts % (Manual) 93.0 H Lymphocytes % (Manual) 0.5 L Monocytes % (Manual) Nucleated RBC % Seg Neutrophils # Seg Neutrophils # Man 28.4 H Lymphocytes # (Manual) 0.2 L Monocytes # (Manual) PT 16.0 H INR 1.26 H D-Dimer ABG pH ABG pO2 ABG HCO3 ABG O2 Saturation ABG Base Excess ABG Hemoglobin Oxyhemoglobin Sodium Potassium Chloride Carbon Dioxide BUN Creatinine Glucose POC Glucose Lactic Acid 6.90 H* Calcium Magnesium Iron TIBC Ferritin AST ALT Lactate Dehydrogenase Troponin T C-Reactive Protein Total Protein Albumin Prealbumin Cholesterol LDL Cholesterol Direct HDL Cholesterol Urine WBC (Auto) Vancomycin Trough Coronavirus (PCR) Crossmatch 07/03/19 07/04/19 07/04/19 23:58 05:15 07:05 WBC 17.1 H RBC 3.22 L Hgb 8.3 L Hct 25.4 L MCV 79 L MCH 26 L MCHC RDW 18.6 H Plt Count Lymph % (Auto) [place] % (Auto) Lymph # [place] # Baso # Seg Neutrophils % Seg Neuts % (Manual) 74.0 H Lymphocytes % (Manual) 0 L Monocytes % (Manual) Nucleated RBC % Seg Neutrophils # Seg Neutrophils # Man 12.7 H Lymphocytes # (Manual) 0.0 L Monocytes # (Manual) PT INR D-Dimer ABG pH 7.310 L ABG pO2 73.2 L ABG HCO3 17.8 L ABG O2 Saturation 93.8 L ABG Base Excess -7.7 L ABG Hemoglobin 9.6 L Oxyhemoglobin 92.3 L Sodium Potassium Chloride Carbon Dioxide BUN Creatinine Glucose POC Glucose Lactic Acid 7.10 H* Calcium Magnesium Iron TIBC Ferritin AST ALT Lactate Dehydrogenase Troponin T C-Reactive Protein Total Protein Albumin Prealbumin Cholesterol LDL Cholesterol Direct HDL Cholesterol Urine WBC (Auto) Vancomycin Trough Coronavirus (PCR) Crossmatch 07/04/19 07/04/19 07/04/19 07:05 07:05 07:05 WBC RBC Hgb Hct MCV MCH MCHC RDW Plt Count Lymph % (Auto) [place] % (Auto) Lymph # [place] # Baso # Seg Neutrophils % Seg Neuts % (Manual) Lymphocytes % (Manual) Monocytes % (Manual) Nucleated RBC % Seg Neutrophils # Seg Neutrophils # Man Lymphocytes # (Manual) Monocytes # (Manual) PT INR D-Dimer ABG pH ABG pO2 ABG HCO3 ABG O2 Saturation ABG Base Excess ABG Hemoglobin Oxyhemoglobin Sodium 120 L Potassium 5.1 H Chloride 90.0 L Carbon Dioxide 14 L BUN 26 H Creatinine 0.5 L Glucose POC Glucose Lactic Acid 3.30 H* Calcium 8.0 L Magnesium Iron 9 L TIBC 97 L Ferritin AST 73 H ALT 91 H Lactate Dehydrogenase Troponin T C-Reactive Protein Total Protein 5.5 L Albumin 2.0 L Prealbumin Cholesterol LDL Cholesterol Direct HDL Cholesterol Urine WBC (Auto) Vancomycin Trough Coronavirus (PCR) Crossmatch 07/04/19 07/04/19 07/04/19 09:39 09:39 09:39 WBC RBC Hgb Hct MCV MCH MCHC RDW Plt Count Lymph % (Auto) [place] % (Auto) Lymph # [place] # Baso # Seg Neutrophils % Seg Neuts % (Manual) Lymphocytes % (Manual) Monocytes % (Manual) Nucleated RBC % Seg Neutrophils # Seg Neutrophils # Man Lymphocytes # (Manual) Monocytes # (Manual) PT INR D-Dimer 1419.14 H ABG pH ABG pO2 ABG HCO3 ABG O2 Saturation ABG Base Excess ABG Hemoglobin Oxyhemoglobin Sodium Potassium Chloride Carbon Dioxide BUN Creatinine Glucose POC Glucose Lactic Acid Calcium Magnesium Iron TIBC Ferritin 1719.0 H AST ALT Lactate Dehydrogenase 234 H Troponin T C-Reactive Protein 15.50 H Total Protein Albumin Prealbumin Cholesterol LDL Cholesterol Direct HDL Cholesterol Urine WBC (Auto) Vancomycin Trough Coronavirus (PCR) Crossmatch 07/04/19 07/04/19 07/04/19 10:09 18:08 18:28 WBC RBC Hgb Hct MCV MCH MCHC RDW Plt Count Lymph % (Auto) [place] % (Auto) Lymph # [place] # Baso # Seg Neutrophils % Seg Neuts % (Manual) Lymphocytes % (Manual) Monocytes % (Manual) Nucleated RBC % Seg Neutrophils # Seg Neutrophils # Man Lymphocytes # (Manual) Monocytes # (Manual) PT INR D-Dimer ABG pH ABG pO2 ABG HCO3 ABG O2 Saturation ABG Base Excess ABG Hemoglobin Oxyhemoglobin Sodium 117 L* Potassium 5.6 H Chloride 90.3 L Carbon Dioxide 16 L BUN 28 H Creatinine 0.5 L Glucose 58 L POC Glucose 65 L Lactic Acid Calcium 8.2 L Magnesium Iron TIBC Ferritin AST ALT Lactate Dehydrogenase Troponin T C-Reactive Protein Total Protein Albumin Prealbumin Cholesterol LDL Cholesterol Direct HDL Cholesterol Urine WBC (Auto) Vancomycin Trough Coronavirus (PCR) Positive A Crossmatch 07/04/19 07/04/19 07/04/19 23:45 Unknown Unknown WBC RBC Hgb Hct MCV MCH MCHC RDW Plt Count Lymph % (Auto) [place] % (Auto) Lymph # [place] # Baso # Seg Neutrophils % Seg Neuts % (Manual) Lymphocytes % (Manual) Monocytes % (Manual) Nucleated RBC % Seg Neutrophils # Seg Neutrophils # Man Lymphocytes # (Manual) Monocytes # (Manual) PT INR D-Dimer 759.77 H ABG pH ABG pO2 ABG HCO3 ABG O2 Saturation ABG Base Excess ABG Hemoglobin Oxyhemoglobin Sodium 122 L Potassium Chloride 93.0 L Carbon Dioxide 19 L BUN 27 H Creatinine 0.5 L Glucose POC Glucose Lactic Acid Calcium 8.3 L Magnesium Iron TIBC Ferritin 1301.0 H AST ALT Lactate Dehydrogenase Troponin T C-Reactive Protein Total Protein Albumin Prealbumin Cholesterol LDL Cholesterol Direct HDL Cholesterol Urine WBC (Auto) Vancomycin Trough Coronavirus (PCR) Crossmatch 07/04/19 07/05/19 07/05/19 Unknown 03:20 04:00 WBC RBC Hgb Hct MCV MCH MCHC RDW Plt Count Lymph % (Auto) [place] % (Auto) Lymph # [place] # Baso # Seg Neutrophils % Seg Neuts % (Manual) Lymphocytes % (Manual) Monocytes % (Manual) Nucleated RBC % Seg Neutrophils # Seg Neutrophils # Man Lymphocytes # (Manual) Monocytes # (Manual) PT INR D-Dimer ABG pH ABG pO2 60.6 L ABG HCO3 ABG O2 Saturation 93.5 L ABG Base Excess -2.4 L ABG Hemoglobin 6.9 L Oxyhemoglobin 92.0 L Sodium 125 L Potassium Chloride 92.6 L Carbon Dioxide 19 L BUN 24 H Creatinine 0.6 L Glucose POC Glucose Lactic Acid Calcium 8.2 L Magnesium 1.40 L Iron TIBC Ferritin AST ALT Lactate Dehydrogenase 242 H Troponin T C-Reactive Protein 16.70 H Total Protein Albumin Prealbumin Cholesterol LDL Cholesterol Direct HDL Cholesterol Urine WBC (Auto) Vancomycin Trough Coronavirus (PCR) Crossmatch 07/05/19 07/05/19 07/05/19 10:11 16:15 17:54 WBC 46.4 H* RBC 2.77 L Hgb 7.2 L Hct 21.9 L MCV 79 L MCH 26 L MCHC RDW 19.0 H Plt Count Lymph % (Auto) [place] % (Auto) Lymph # [place] # Baso # Seg Neutrophils % Seg Neuts % (Manual) 82.0 H Lymphocytes % (Manual) 1.0 L Monocytes % (Manual) Nucleated RBC % Seg Neutrophils # Seg Neutrophils # Man 38.0 H Lymphocytes # (Manual) 0.5 L Monocytes # (Manual) PT INR D-Dimer ABG pH ABG pO2 ABG HCO3 ABG O2 Saturation ABG Base Excess ABG Hemoglobin Oxyhemoglobin Sodium Potassium Chloride Carbon Dioxide BUN Creatinine Glucose POC Glucose 69 L Lactic Acid Calcium Magnesium Iron TIBC Ferritin AST ALT Lactate Dehydrogenase Troponin T C-Reactive Protein Total Protein Albumin Prealbumin Cholesterol LDL Cholesterol Direct HDL Cholesterol Urine WBC (Auto) Vancomycin Trough 23.2 H Coronavirus (PCR) Crossmatch 07/05/19 07/06/19 07/06/19 19:58 00:27 00:27 WBC RBC Hgb Hct MCV MCH MCHC RDW Plt Count Lymph % (Auto) [place] % (Auto) Lymph # [place] # Baso # Seg Neutrophils % Seg Neuts % (Manual) Lymphocytes % (Manual) Monocytes % (Manual) Nucleated RBC % Seg Neutrophils # Seg Neutrophils # Man Lymphocytes # (Manual) Monocytes # (Manual) PT INR D-Dimer 1333.22 H ABG pH ABG pO2 ABG HCO3 ABG O2 Saturation ABG Base Excess ABG Hemoglobin Oxyhemoglobin Sodium 127 L Potassium Chloride Carbon Dioxide BUN Creatinine Glucose POC Glucose Lactic Acid Calcium Magnesium Iron TIBC Ferritin 977.1 H AST ALT Lactate Dehydrogenase Troponin T C-Reactive Protein Total Protein Albumin Prealbumin Cholesterol LDL Cholesterol Direct HDL Cholesterol Urine WBC (Auto) Vancomycin Trough Coronavirus (PCR) Crossmatch 07/06/19 07/06/19 07/06/19 00:27 02:00 02:56 WBC RBC Hgb Hct MCV MCH MCHC RDW Plt Count Lymph % (Auto) [place] % (Auto) Lymph # [place] # Baso # Seg Neutrophils % Seg Neuts % (Manual) Lymphocytes % (Manual) Monocytes % (Manual) Nucleated RBC % Seg Neutrophils # Seg Neutrophils # Man Lymphocytes # (Manual) Monocytes # (Manual) PT INR D-Dimer ABG pH ABG pO2 70.3 L ABG HCO3 ABG O2 Saturation 94.8 L ABG Base Excess ABG Hemoglobin 8.0 L Oxyhemoglobin 93.2 L Sodium Potassium Chloride Carbon Dioxide BUN Creatinine Glucose POC Glucose 117 H Lactic Acid Calcium Magnesium Iron TIBC Ferritin AST ALT Lactate Dehydrogenase 236 H Troponin T C-Reactive Protein 22.90 H Total Protein Albumin Prealbumin Cholesterol LDL Cholesterol Direct HDL Cholesterol Urine WBC (Auto) Vancomycin Trough Coronavirus (PCR) Crossmatch 07/06/19 07/06/19 07/06/19 03:49 03:49 07:40 WBC 38.8 H RBC 2.51 L Hgb 6.7 L Hct 19.9 L* MCV 79 L MCH 27 L MCHC RDW 19.2 H Plt Count Lymph % (Auto) [place] % (Auto) Lymph # [place] # Baso # Seg Neutrophils % Seg Neuts % (Manual) 90.5 H Lymphocytes % (Manual) 1.0 L Monocytes % (Manual) Nucleated RBC % Seg Neutrophils # Seg Neutrophils # Man 35.1 H Lymphocytes # (Manual) 0.4 L Monocytes # (Manual) PT INR D-Dimer ABG pH ABG pO2 ABG HCO3 ABG O2 Saturation ABG Base Excess ABG Hemoglobin Oxyhemoglobin Sodium 131 L Potassium Chloride 96.9 L Carbon Dioxide 18 L BUN 23 H Creatinine 0.5 L Glucose POC Glucose Lactic Acid Calcium 8.0 L Magnesium Iron TIBC Ferritin AST ALT Lactate Dehydrogenase Troponin T C-Reactive Protein Total Protein Albumin Prealbumin Cholesterol LDL Cholesterol Direct HDL Cholesterol Urine WBC (Auto) Vancomycin Trough Coronavirus (PCR) Crossmatch See Detail 07/06/19 07/06/19 07/06/19 12:38 14:39 20:00 WBC RBC Hgb Hct MCV MCH MCHC RDW Plt Count Lymph % (Auto) [place] % (Auto) Lymph # [place] # Baso # Seg Neutrophils % Seg Neuts % (Manual) Lymphocytes % (Manual) Monocytes % (Manual) Nucleated RBC % Seg Neutrophils # Seg Neutrophils # Man Lymphocytes # (Manual) Monocytes # (Manual) PT INR D-Dimer ABG pH ABG pO2 ABG HCO3 ABG O2 Saturation ABG Base Excess ABG Hemoglobin Oxyhemoglobin Sodium Potassium Chloride Carbon Dioxide BUN Creatinine Glucose POC Glucose 112 H 111 H 140 H Lactic Acid Calcium Magnesium Iron TIBC Ferritin AST ALT Lactate Dehydrogenase Troponin T C-Reactive Protein Total Protein Albumin Prealbumin Cholesterol LDL Cholesterol Direct HDL Cholesterol Urine WBC (Auto) Vancomycin Trough Coronavirus (PCR) Crossmatch 07/06/19 07/06/19 07/07/19 22:43 22:56 02:20 WBC RBC Hgb 7.9 L Hct 23.1 L MCV MCH MCHC RDW Plt Count Lymph % (Auto) [place] % (Auto) Lymph # [place] # Baso # Seg Neutrophils % Seg Neuts % (Manual) Lymphocytes % (Manual) Monocytes % (Manual) Nucleated RBC % Seg Neutrophils # Seg Neutrophils # Man Lymphocytes # (Manual) Monocytes # (Manual) PT INR D-Dimer ABG pH ABG pO2 ABG HCO3 ABG O2 Saturation ABG Base Excess ABG Hemoglobin Oxyhemoglobin Sodium Potassium Chloride Carbon Dioxide BUN Creatinine Glucose POC Glucose 122 H 149 H Lactic Acid Calcium Magnesium Iron TIBC Ferritin AST ALT Lactate Dehydrogenase Troponin T C-Reactive Protein Total Protein Albumin Prealbumin Cholesterol LDL Cholesterol Direct HDL Cholesterol Urine WBC (Auto) Vancomycin Trough Coronavirus (PCR) Crossmatch 07/07/19 07/07/19 07/07/19 04:35 05:27 05:34 WBC 23.1 H RBC 3.00 L Hgb 8.1 L Hct 24.2 L MCV 81 L MCH 27 L MCHC RDW 20.6 H Plt Count Lymph % (Auto) [place] % (Auto) Lymph # [place] # Baso # Seg Neutrophils % Seg Neuts % (Manual) 90.0 H Lymphocytes % (Manual) 2.0 L Monocytes % (Manual) Nucleated RBC % Seg Neutrophils # Seg Neutrophils # Man 20.8 H Lymphocytes # (Manual) 0.5 L Monocytes # (Manual) PT INR D-Dimer ABG pH ABG pO2 65.8 L ABG HCO3 ABG O2 Saturation 92.2 L ABG Base Excess ABG Hemoglobin 8.3 L Oxyhemoglobin 90.6 L Sodium Potassium Chloride Carbon Dioxide BUN Creatinine Glucose POC Glucose 132 H Lactic Acid Calcium Magnesium Iron TIBC Ferritin AST ALT Lactate Dehydrogenase Troponin T C-Reactive Protein Total Protein Albumin Prealbumin Cholesterol LDL Cholesterol Direct HDL Cholesterol Urine WBC (Auto) Vancomycin Trough Coronavirus (PCR) Crossmatch 07/07/19 07/07/19 07/07/19 05:34 11:50 15:58 WBC RBC Hgb 8.1 L Hct 24.2 L MCV MCH MCHC RDW Plt Count Lymph % (Auto) [place] % (Auto) Lymph # [place] # Baso # Seg Neutrophils % Seg Neuts % (Manual) Lymphocytes % (Manual) Monocytes % (Manual) Nucleated RBC % Seg Neutrophils # Seg Neutrophils # Man Lymphocytes # (Manual) Monocytes # (Manual) PT INR D-Dimer ABG pH ABG pO2 ABG HCO3 ABG O2 Saturation ABG Base Excess ABG Hemoglobin Oxyhemoglobin Sodium 135 L Potassium 3.3 L Chloride Carbon Dioxide 20 L BUN 27 H Creatinine 0.6 L Glucose 121 H POC Glucose 123 H Lactic Acid Calcium 8.0 L Magnesium Iron TIBC Ferritin AST ALT Lactate Dehydrogenase Troponin T C-Reactive Protein Total Protein Albumin Prealbumin Cholesterol LDL Cholesterol Direct HDL Cholesterol Urine WBC (Auto) Vancomycin Trough Coronavirus (PCR) Crossmatch 07/07/19 07/07/19 07/07/19 17:42 22:00 23:53 WBC RBC Hgb 8.0 L Hct 23.4 L MCV MCH MCHC RDW Plt Count Lymph % (Auto) [place] % (Auto) Lymph # [place] # Baso # Seg Neutrophils % Seg Neuts % (Manual) Lymphocytes % (Manual) Monocytes % (Manual) Nucleated RBC % Seg Neutrophils # Seg Neutrophils # Man Lymphocytes # (Manual) Monocytes # (Manual) PT INR D-Dimer ABG pH ABG pO2 ABG HCO3 ABG O2 Saturation ABG Base Excess ABG Hemoglobin Oxyhemoglobin Sodium Potassium Chloride Carbon Dioxide BUN Creatinine Glucose POC Glucose 107 H 117 H Lactic Acid Calcium Magnesium Iron TIBC Ferritin AST ALT Lactate Dehydrogenase Troponin T C-Reactive Protein Total Protein Albumin Prealbumin Cholesterol LDL Cholesterol Direct HDL Cholesterol Urine WBC (Auto) Vancomycin Trough Coronavirus (PCR) Crossmatch 07/08/19 07/08/19 07/08/19 00:45 00:45 00:45 WBC RBC Hgb Hct MCV MCH MCHC RDW Plt Count Lymph % (Auto) [place] % (Auto) Lymph # [place] # Baso # Seg Neutrophils % Seg Neuts % (Manual) Lymphocytes % (Manual) Monocytes % (Manual) Nucleated RBC % Seg Neutrophils # Seg Neutrophils # Man Lymphocytes # (Manual) Monocytes # (Manual) PT INR D-Dimer 1142.18 H ABG pH ABG pO2 ABG HCO3 ABG O2 Saturation ABG Base Excess ABG Hemoglobin Oxyhemoglobin Sodium Potassium Chloride Carbon Dioxide BUN Creatinine Glucose POC Glucose Lactic Acid Calcium Magnesium Iron TIBC Ferritin 839.0 H AST ALT Lactate Dehydrogenase 253 H Troponin T C-Reactive Protein 18.90 H Total Protein Albumin Prealbumin Cholesterol LDL Cholesterol Direct HDL Cholesterol Urine WBC (Auto) Vancomycin Trough Coronavirus (PCR) Crossmatch 07/08/19 07/08/19 07/08/19 04:30 05:11 12:02 WBC RBC Hgb Hct MCV MCH MCHC RDW Plt Count Lymph % (Auto) [place] % (Auto) Lymph # [place] # Baso # Seg Neutrophils % Seg Neuts % (Manual) Lymphocytes % (Manual) Monocytes % (Manual) Nucleated RBC % Seg Neutrophils # Seg Neutrophils # Man Lymphocytes # (Manual) Monocytes # (Manual) PT INR D-Dimer ABG pH ABG pO2 66.0 L ABG HCO3 ABG O2 Saturation 92.3 L ABG Base Excess ABG Hemoglobin 7.7 L Oxyhemoglobin 90.7 L Sodium Potassium Chloride Carbon Dioxide BUN Creatinine Glucose POC Glucose 108 H 153 H Lactic Acid Calcium Magnesium Iron TIBC Ferritin AST ALT Lactate Dehydrogenase Troponin T C-Reactive Protein Total Protein Albumin Prealbumin Cholesterol LDL Cholesterol Direct HDL Cholesterol Urine WBC (Auto) Vancomycin Trough Coronavirus (PCR) Crossmatch 07/08/19 07/08/19 07/08/19 16:15 18:22 23:35 WBC RBC Hgb Hct MCV MCH MCHC RDW Plt Count Lymph % (Auto) [place] % (Auto) Lymph # [place] # Baso # Seg Neutrophils % Seg Neuts % (Manual) Lymphocytes % (Manual) Monocytes % (Manual) Nucleated RBC % Seg Neutrophils # Seg Neutrophils # Man Lymphocytes # (Manual) Monocytes # (Manual) PT INR D-Dimer ABG pH ABG pO2 ABG HCO3 ABG O2 Saturation ABG Base Excess ABG Hemoglobin Oxyhemoglobin Sodium 134 L Potassium 3.3 L Chloride Carbon Dioxide 21 L BUN 27 H Creatinine 0.6 L Glucose 146 H POC Glucose 134 H 133 H Lactic Acid Calcium Magnesium Iron TIBC Ferritin AST ALT Lactate Dehydrogenase Troponin T C-Reactive Protein Total Protein Albumin Prealbumin Cholesterol LDL Cholesterol Direct HDL Cholesterol Urine WBC (Auto) Vancomycin Trough Coronavirus (PCR) Crossmatch 07/09/19 07/09/19 07/09/19 04:30 04:30 05:00 WBC 18.9 H RBC 2.77 L Hgb 7.4 L Hct 22.8 L MCV 82 L MCH 27 L MCHC RDW 20.9 H Plt Count 130 L Lymph % (Auto) [place] % (Auto) Lymph # [place] # Baso # Seg Neutrophils % Seg Neuts % (Manual) 84.0 H Lymphocytes % (Manual) 0 L Monocytes % (Manual) Nucleated RBC % Seg Neutrophils # Seg Neutrophils # Man 15.9 H Lymphocytes # (Manual) 0.0 L Monocytes # (Manual) PT INR D-Dimer ABG pH ABG pO2 ABG HCO3 ABG O2 Saturation ABG Base Excess ABG Hemoglobin Oxyhemoglobin Sodium Potassium 3.1 L Chloride Carbon Dioxide BUN 26 H Creatinine 0.5 L Glucose 125 H POC Glucose 155 H Lactic Acid Calcium Magnesium Iron TIBC Ferritin AST ALT Lactate Dehydrogenase Troponin T C-Reactive Protein Total Protein Albumin Prealbumin Cholesterol LDL Cholesterol Direct HDL Cholesterol Urine WBC (Auto) Vancomycin Trough Coronavirus (PCR) Crossmatch 07/09/19 07/09/19 07/09/19 05:55 12:22 17:50 WBC RBC Hgb Hct MCV MCH MCHC RDW Plt Count Lymph % (Auto) [place] % (Auto) Lymph # [place] # Baso # Seg Neutrophils % Seg Neuts % (Manual) Lymphocytes % (Manual) Monocytes % (Manual) Nucleated RBC % Seg Neutrophils # Seg Neutrophils # Man Lymphocytes # (Manual) Monocytes # (Manual) PT INR D-Dimer ABG pH ABG pO2 62.8 L ABG HCO3 ABG O2 Saturation ABG Base Excess ABG Hemoglobin 6.1 L Oxyhemoglobin 93.9 L Sodium Potassium Chloride Carbon Dioxide BUN Creatinine Glucose POC Glucose 115 H 133 H Lactic Acid Calcium Magnesium Iron TIBC Ferritin AST ALT Lactate Dehydrogenase Troponin T C-Reactive Protein Total Protein Albumin Prealbumin Cholesterol LDL Cholesterol Direct HDL Cholesterol Urine WBC (Auto) Vancomycin Trough Coronavirus (PCR) Crossmatch 07/10/19 07/10/19 07/10/19 00:38 04:00 04:00 WBC RBC Hgb Hct MCV MCH MCHC RDW Plt Count Lymph % (Auto) [place] % (Auto) Lymph # [place] # Baso # Seg Neutrophils % Seg Neuts % (Manual) Lymphocytes % (Manual) Monocytes % (Manual) Nucleated RBC % Seg Neutrophils # Seg Neutrophils # Man Lymphocytes # (Manual) Monocytes # (Manual) PT INR D-Dimer ABG pH ABG pO2 ABG HCO3 ABG O2 Saturation ABG Base Excess ABG Hemoglobin Oxyhemoglobin Sodium Potassium Chloride 107.9 H Carbon Dioxide BUN 26 H Creatinine 0.4 L Glucose 137 H POC Glucose 122 H Lactic Acid Calcium Magnesium 1.50 L Iron TIBC Ferritin AST ALT Lactate Dehydrogenase 277 H Troponin T C-Reactive Protein 15.10 H Total Protein Albumin Prealbumin Cholesterol LDL Cholesterol Direct HDL Cholesterol Urine WBC (Auto) Vancomycin Trough Coronavirus (PCR) Crossmatch 07/10/19 07/10/19 07/10/19 04:07 05:21 17:25 WBC RBC Hgb Hct MCV MCH MCHC RDW Plt Count Lymph % (Auto) [place] % (Auto) Lymph # [place] # Baso # Seg Neutrophils % Seg Neuts % (Manual) Lymphocytes % (Manual) Monocytes % (Manual) Nucleated RBC % Seg Neutrophils # Seg Neutrophils # Man Lymphocytes # (Manual) Monocytes # (Manual) PT INR D-Dimer ABG pH ABG pO2 65.6 L ABG HCO3 26.3 H ABG O2 Saturation ABG Base Excess ABG Hemoglobin 6.7 L Oxyhemoglobin Sodium Potassium Chloride Carbon Dioxide BUN Creatinine Glucose POC Glucose 144 H 113 H Lactic Acid Calcium Magnesium Iron TIBC Ferritin AST ALT Lactate Dehydrogenase Troponin T C-Reactive Protein Total Protein Albumin Prealbumin Cholesterol LDL Cholesterol Direct HDL Cholesterol Urine WBC (Auto) Vancomycin Trough Coronavirus (PCR) Crossmatch 07/11/19 07/11/19 07/11/19 00:07 05:14 05:25 WBC RBC Hgb Hct MCV MCH MCHC RDW Plt Count Lymph % (Auto) [place] % (Auto) Lymph # [place] # Baso # Seg Neutrophils % Seg Neuts % (Manual) Lymphocytes % (Manual) Monocytes % (Manual) Nucleated RBC % Seg Neutrophils # Seg Neutrophils # Man Lymphocytes # (Manual) Monocytes # (Manual) PT INR D-Dimer ABG pH ABG pO2 ABG HCO3 ABG O2 Saturation ABG Base Excess ABG Hemoglobin 5.8 L Oxyhemoglobin Sodium Potassium Chloride 108.0 H Carbon Dioxide BUN 26 H Creatinine 0.4 L Glucose 110 H POC Glucose 121 H Lactic Acid Calcium Magnesium Iron TIBC Ferritin AST ALT Lactate Dehydrogenase Troponin T C-Reactive Protein Total Protein Albumin Prealbumin Cholesterol LDL Cholesterol Direct HDL Cholesterol Urine WBC (Auto) Vancomycin Trough Coronavirus (PCR) Crossmatch 07/11/19 07/11/19 07/11/19 12:27 18:00 23:42 WBC RBC Hgb Hct MCV MCH MCHC RDW Plt Count Lymph % (Auto) [place] % (Auto) Lymph # [place] # Baso # Seg Neutrophils % Seg Neuts % (Manual) Lymphocytes % (Manual) Monocytes % (Manual) Nucleated RBC % Seg Neutrophils # Seg Neutrophils # Man Lymphocytes # (Manual) Monocytes # (Manual) PT INR D-Dimer ABG pH ABG pO2 ABG HCO3 ABG O2 Saturation ABG Base Excess ABG Hemoglobin Oxyhemoglobin Sodium Potassium Chloride Carbon Dioxide BUN Creatinine Glucose POC Glucose 158 H 141 H 142 H Lactic Acid Calcium Magnesium Iron TIBC Ferritin AST ALT Lactate Dehydrogenase Troponin T C-Reactive Protein Total Protein Albumin Prealbumin Cholesterol LDL Cholesterol Direct HDL Cholesterol Urine WBC (Auto) Vancomycin Trough Coronavirus (PCR) Crossmatch 07/12/19 07/12/19 07/12/19 04:46 04:46 05:23 WBC 23.6 H RBC 2.51 L Hgb 6.7 L Hct 20.8 L MCV 83 L MCH 27 L MCHC RDW 20.3 H Plt Count Lymph % (Auto) [place] % (Auto) Lymph # [place] # Baso # Seg Neutrophils % Seg Neuts % (Manual) 94.0 H Lymphocytes % (Manual) 4.0 L Monocytes % (Manual) Nucleated RBC % Seg Neutrophils # Seg Neutrophils # Man 22.2 H Lymphocytes # (Manual) 0.9 L Monocytes # (Manual) PT INR D-Dimer ABG pH ABG pO2 ABG HCO3 ABG O2 Saturation ABG Base Excess ABG Hemoglobin Oxyhemoglobin Sodium Potassium Chloride 107.1 H Carbon Dioxide BUN 25 H Creatinine 0.4 L Glucose 122 H POC Glucose 118 H Lactic Acid Calcium Magnesium Iron TIBC Ferritin AST ALT Lactate Dehydrogenase Troponin T C-Reactive Protein Total Protein Albumin Prealbumin Cholesterol LDL Cholesterol Direct HDL Cholesterol Urine WBC (Auto) Vancomycin Trough Coronavirus (PCR) Crossmatch 07/12/19 07/12/19 07/12/19 08:49 11:36 18:15 WBC RBC Hgb Hct MCV MCH MCHC RDW Plt Count Lymph % (Auto) [place] % (Auto) Lymph # [place] # Baso # Seg Neutrophils % Seg Neuts % (Manual) Lymphocytes % (Manual) Monocytes % (Manual) Nucleated RBC % Seg Neutrophils # Seg Neutrophils # Man Lymphocytes # (Manual) Monocytes # (Manual) PT INR D-Dimer ABG pH ABG pO2 ABG HCO3 ABG O2 Saturation ABG Base Excess ABG Hemoglobin Oxyhemoglobin Sodium Potassium Chloride Carbon Dioxide BUN Creatinine Glucose POC Glucose 124 H 110 H Lactic Acid Calcium Magnesium Iron TIBC Ferritin AST ALT Lactate Dehydrogenase Troponin T C-Reactive Protein Total Protein Albumin Prealbumin Cholesterol LDL Cholesterol Direct HDL Cholesterol Urine WBC (Auto) Vancomycin Trough Coronavirus (PCR) Crossmatch See Detail 07/12/19 07/13/19 07/13/19 23:16 05:26 06:50 WBC 23.9 H RBC 2.58 L Hgb 6.9 L Hct 21.5 L MCV 83 L MCH 27 L MCHC RDW 19.0 H Plt Count Lymph % (Auto) [place] % (Auto) Lymph # [place] # Baso # Seg Neutrophils % Seg Neuts % (Manual) 96.0 H Lymphocytes % (Manual) 3.0 L Monocytes % (Manual) Nucleated RBC % Seg Neutrophils # Seg Neutrophils # Man 22.9 H Lymphocytes # (Manual) 0.7 L Monocytes # (Manual) PT INR D-Dimer ABG pH ABG pO2 ABG HCO3 ABG O2 Saturation ABG Base Excess ABG Hemoglobin Oxyhemoglobin Sodium Potassium Chloride Carbon Dioxide BUN Creatinine Glucose POC Glucose 108 H 126 H Lactic Acid Calcium Magnesium Iron TIBC Ferritin AST ALT Lactate Dehydrogenase Troponin T C-Reactive Protein Total Protein Albumin Prealbumin Cholesterol LDL Cholesterol Direct HDL Cholesterol Urine WBC (Auto) Vancomycin Trough Coronavirus (PCR) Crossmatch 07/13/19 07/13/19 07/13/19 06:50 12:38 18:05 WBC RBC Hgb Hct MCV MCH MCHC RDW Plt Count Lymph % (Auto) [place] % (Auto) Lymph # [place] # Baso # Seg Neutrophils % Seg Neuts % (Manual) Lymphocytes % (Manual) Monocytes % (Manual) Nucleated RBC % Seg Neutrophils # Seg Neutrophils # Man Lymphocytes # (Manual) Monocytes # (Manual) PT INR D-Dimer ABG pH ABG pO2 ABG HCO3 ABG O2 Saturation ABG Base Excess ABG Hemoglobin Oxyhemoglobin Sodium Potassium Chloride Carbon Dioxide BUN 33 H Creatinine 0.5 L Glucose 136 H POC Glucose 164 H 145 H Lactic Acid Calcium Magnesium Iron TIBC Ferritin AST ALT Lactate Dehydrogenase Troponin T C-Reactive Protein Total Protein Albumin Prealbumin Cholesterol LDL Cholesterol Direct HDL Cholesterol Urine WBC (Auto) Vancomycin Trough Coronavirus (PCR) Crossmatch 07/13/19 07/14/19 07/14/19 18:30 00:21 04:40 WBC 22.9 H RBC 2.45 L Hgb 6.6 L Hct 21.1 L MCV MCH 27 L MCHC 31 L RDW 19.2 H Plt Count Lymph % (Auto) [place] % (Auto) Lymph # [place] # Baso # Seg Neutrophils % Seg Neuts % (Manual) 91.0 H Lymphocytes % (Manual) 7.0 L Monocytes % (Manual) Nucleated RBC % Seg Neutrophils # Seg Neutrophils # Man 20.8 H Lymphocytes # (Manual) Monocytes # (Manual) PT INR D-Dimer ABG pH ABG pO2 58.1 L ABG HCO3 ABG O2 Saturation 88.7 L ABG Base Excess ABG Hemoglobin 7.8 L Oxyhemoglobin 86.8 L Sodium Potassium Chloride Carbon Dioxide BUN Creatinine Glucose POC Glucose 118 H Lactic Acid Calcium Magnesium Iron TIBC Ferritin AST ALT Lactate Dehydrogenase Troponin T C-Reactive Protein Total Protein Albumin Prealbumin Cholesterol LDL Cholesterol Direct HDL Cholesterol Urine WBC (Auto) Vancomycin Trough Coronavirus (PCR) Crossmatch 07/14/19 07/14/19 07/14/19 04:40 05:38 05:45 WBC RBC Hgb Hct MCV MCH MCHC RDW Plt Count Lymph % (Auto) [place] % (Auto) Lymph # [place] # Baso # Seg Neutrophils % Seg Neuts % (Manual) Lymphocytes % (Manual) Monocytes % (Manual) Nucleated RBC % Seg Neutrophils # Seg Neutrophils # Man Lymphocytes # (Manual) Monocytes # (Manual) PT INR D-Dimer ABG pH 7.230 L ABG pO2 72.1 L ABG HCO3 ABG O2 Saturation 89.3 L ABG Base Excess -2.7 L ABG Hemoglobin 6.7 L Oxyhemoglobin 87.7 L Sodium Potassium Chloride 107.4 H Carbon Dioxide BUN 45 H Creatinine Glucose 101 H POC Glucose 154 H Lactic Acid Calcium Magnesium Iron TIBC Ferritin AST ALT Lactate Dehydrogenase Troponin T C-Reactive Protein Total Protein Albumin Prealbumin Cholesterol LDL Cholesterol Direct HDL Cholesterol Urine WBC (Auto) Vancomycin Trough Coronavirus (PCR) Crossmatch 07/14/19 07/14/19 07/14/19 12:25 18:20 19:01 WBC 22.4 H RBC 2.70 L Hgb 7.5 L Hct 23.3 L MCV MCH MCHC RDW 19.5 H Plt Count Lymph % (Auto) [place] % (Auto) Lymph # [place] # Baso # Seg Neutrophils % Seg Neuts % (Manual) Lymphocytes % (Manual) Monocytes % (Manual) Nucleated RBC % Seg Neutrophils # Seg Neutrophils # Man Lymphocytes # (Manual) Monocytes # (Manual) PT INR D-Dimer ABG pH ABG pO2 ABG HCO3 ABG O2 Saturation ABG Base Excess ABG Hemoglobin Oxyhemoglobin Sodium Potassium Chloride Carbon Dioxide BUN Creatinine Glucose POC Glucose 136 H 131 H Lactic Acid Calcium Magnesium Iron TIBC Ferritin AST ALT Lactate Dehydrogenase Troponin T C-Reactive Protein Total Protein Albumin Prealbumin Cholesterol LDL Cholesterol Direct HDL Cholesterol Urine WBC (Auto) Vancomycin Trough Coronavirus (PCR) Crossmatch 07/15/19 07/15/19 07/15/19 00:17 04:35 05:18 WBC 20.6 H RBC 2.41 L Hgb 6.8 L Hct 20.7 L MCV MCH MCHC RDW 20.2 H Plt Count Lymph % (Auto) [place] % (Auto) Lymph # [place] # Baso # Seg Neutrophils % Seg Neuts % (Manual) 92.0 H Lymphocytes % (Manual) 5.0 L Monocytes % (Manual) Nucleated RBC % Seg Neutrophils # Seg Neutrophils # Man 19.0 H Lymphocytes # (Manual) 1.0 L Monocytes # (Manual) PT INR D-Dimer ABG pH 7.342 L ABG pO2 ABG HCO3 ABG O2 Saturation ABG Base Excess -3.1 L ABG Hemoglobin 7.2 L Oxyhemoglobin 94.9 L Sodium Potassium Chloride Carbon Dioxide BUN Creatinine Glucose POC Glucose 116 H Lactic Acid Calcium Magnesium Iron TIBC Ferritin AST ALT Lactate Dehydrogenase Troponin T C-Reactive Protein Total Protein Albumin Prealbumin Cholesterol LDL Cholesterol Direct HDL Cholesterol Urine WBC (Auto) Vancomycin Trough Coronavirus (PCR) Crossmatch 07/15/19 07/15/19 07/15/19 05:18 05:57 11:28 WBC RBC Hgb Hct MCV MCH MCHC RDW Plt Count Lymph % (Auto) [place] % (Auto) Lymph # [place] # Baso # Seg Neutrophils % Seg Neuts % (Manual) Lymphocytes % (Manual) Monocytes % (Manual) Nucleated RBC % Seg Neutrophils # Seg Neutrophils # Man Lymphocytes # (Manual) Monocytes # (Manual) PT INR D-Dimer ABG pH ABG pO2 ABG HCO3 ABG O2 Saturation ABG Base Excess ABG Hemoglobin Oxyhemoglobin Sodium Potassium Chloride Carbon Dioxide 20 L BUN 59 H Creatinine Glucose 140 H POC Glucose 139 H 117 H Lactic Acid Calcium Magnesium Iron TIBC Ferritin AST ALT Lactate Dehydrogenase Troponin T C-Reactive Protein Total Protein Albumin Prealbumin Cholesterol LDL Cholesterol Direct HDL Cholesterol Urine WBC (Auto) Vancomycin Trough Coronavirus (PCR) Crossmatch 07/15/19 07/16/19 07/16/19 18:13 00:06 03:43 WBC RBC Hgb Hct MCV MCH MCHC RDW Plt Count Lymph % (Auto) [place] % (Auto) Lymph # [place] # Baso # Seg Neutrophils % Seg Neuts % (Manual) Lymphocytes % (Manual) Monocytes % (Manual) Nucleated RBC % Seg Neutrophils # Seg Neutrophils # Man Lymphocytes # (Manual) Monocytes # (Manual) PT INR D-Dimer ABG pH 7.344 L ABG pO2 68.6 L ABG HCO3 ABG O2 Saturation ABG Base Excess -3.5 L ABG Hemoglobin 6.1 L Oxyhemoglobin 93.3 L Sodium Potassium Chloride Carbon Dioxide BUN Creatinine Glucose POC Glucose 114 H 119 H Lactic Acid Calcium Magnesium Iron TIBC Ferritin AST ALT Lactate Dehydrogenase Troponin T C-Reactive Protein Total Protein Albumin Prealbumin Cholesterol LDL Cholesterol Direct HDL Cholesterol Urine WBC (Auto) Vancomycin Trough Coronavirus (PCR) Crossmatch 07/16/19 07/16/19 07/16/19 04:41 04:41 12:09 WBC 19.6 H RBC 2.81 L Hgb 7.7 L Hct 24.0 L MCV MCH 27 L MCHC RDW 19.4 H Plt Count 514 H Lymph % (Auto) 6.7 L [place] % (Auto) Lymph # [place] # 1.0 H Baso # Seg Neutrophils % 87.0 H Seg Neuts % (Manual) Lymphocytes % (Manual) Monocytes % (Manual) Nucleated RBC % Seg Neutrophils # 17.0 H Seg Neutrophils # Man Lymphocytes # (Manual) Monocytes # (Manual) PT INR D-Dimer ABG pH ABG pO2 ABG HCO3 ABG O2 Saturation ABG Base Excess ABG Hemoglobin Oxyhemoglobin Sodium Potassium 5.9 H Chloride Carbon Dioxide 21 L BUN 73 H Creatinine 2.0 H Glucose POC Glucose 141 H Lactic Acid Calcium Magnesium Iron TIBC Ferritin AST ALT Lactate Dehydrogenase Troponin T C-Reactive Protein Total Protein Albumin Prealbumin Cholesterol LDL Cholesterol Direct HDL Cholesterol Urine WBC (Auto) Vancomycin Trough Coronavirus (PCR) Crossmatch 07/16/19 07/16/19 07/17/19 16:19 17:45 00:16 WBC RBC Hgb Hct MCV MCH MCHC RDW Plt Count Lymph % (Auto) [place] % (Auto) Lymph # [place] # Baso # Seg Neutrophils % Seg Neuts % (Manual) Lymphocytes % (Manual) Monocytes % (Manual) Nucleated RBC % Seg Neutrophils # Seg Neutrophils # Man Lymphocytes # (Manual) Monocytes # (Manual) PT INR D-Dimer ABG pH ABG pO2 ABG HCO3 ABG O2 Saturation ABG Base Excess ABG Hemoglobin Oxyhemoglobin Sodium Potassium 5.1 H Chloride Carbon Dioxide 20 L BUN 72 H Creatinine 1.7 H Glucose 128 H POC Glucose 181 H 164 H Lactic Acid Calcium Magnesium Iron TIBC Ferritin AST ALT Lactate Dehydrogenase Troponin T C-Reactive Protein Total Protein Albumin Prealbumin Cholesterol LDL Cholesterol Direct HDL Cholesterol Urine WBC (Auto) Vancomycin Trough Coronavirus (PCR) Crossmatch 07/17/19 07/17/19 07/17/19 04:20 04:39 04:39 WBC 16.1 H RBC 2.92 L Hgb 8.0 L Hct 25.5 L MCV MCH MCHC 31 L RDW 19.7 H Plt Count 564 H Lymph % (Auto) 3.6 L [place] % (Auto) 7.4 H Lymph # 0.6 L [place] # 1.2 H Baso # Seg Neutrophils % 87.5 H Seg Neuts % (Manual) Lymphocytes % (Manual) Monocytes % (Manual) Nucleated RBC % Seg Neutrophils # 14.1 H Seg Neutrophils # Man Lymphocytes # (Manual) Monocytes # (Manual) PT INR D-Dimer ABG pH 7.231 L ABG pO2 95.3 H ABG HCO3 ABG O2 Saturation ABG Base Excess -5.0 L ABG Hemoglobin 7.9 L Oxyhemoglobin 94.8 L Sodium Potassium Chloride 107.8 H Carbon Dioxide 21 L BUN 68 H Creatinine Glucose POC Glucose Lactic Acid Calcium Magnesium Iron TIBC Ferritin AST ALT Lactate Dehydrogenase Troponin T C-Reactive Protein Total Protein Albumin Prealbumin Cholesterol LDL Cholesterol Direct HDL Cholesterol Urine WBC (Auto) Vancomycin Trough Coronavirus (PCR) Crossmatch 07/17/19 07/17/19 07/17/19 05:28 12:11 18:48 WBC RBC Hgb Hct MCV MCH MCHC RDW Plt Count Lymph % (Auto) [place] % (Auto) Lymph # [place] # Baso # Seg Neutrophils % Seg Neuts % (Manual) Lymphocytes % (Manual) Monocytes % (Manual) Nucleated RBC % Seg Neutrophils # Seg Neutrophils # Man Lymphocytes # (Manual) Monocytes # (Manual) PT INR D-Dimer ABG pH ABG pO2 ABG HCO3 ABG O2 Saturation ABG Base Excess ABG Hemoglobin Oxyhemoglobin Sodium Potassium Chloride Carbon Dioxide BUN Creatinine Glucose POC Glucose 121 H 125 H 174 H Lactic Acid Calcium Magnesium Iron TIBC Ferritin AST ALT Lactate Dehydrogenase Troponin T C-Reactive Protein Total Protein Albumin Prealbumin Cholesterol LDL Cholesterol Direct HDL Cholesterol Urine WBC (Auto) Vancomycin Trough Coronavirus (PCR) Crossmatch 07/17/19 07/17/19 07/18/19 19:55 23:57 02:30 WBC RBC Hgb Hct MCV MCH MCHC RDW Plt Count Lymph % (Auto) [place] % (Auto) Lymph # [place] # Baso # Seg Neutrophils % Seg Neuts % (Manual) Lymphocytes % (Manual) Monocytes % (Manual) Nucleated RBC % Seg Neutrophils # Seg Neutrophils # Man Lymphocytes # (Manual) Monocytes # (Manual) PT INR D-Dimer ABG pH 7.344 L 7.294 L ABG pO2 78.5 L 119.2 H ABG HCO3 ABG O2 Saturation ABG Base Excess -3.3 L -2.6 L ABG Hemoglobin 8.6 L 8.1 L Oxyhemoglobin 94.8 L Sodium Potassium Chloride Carbon Dioxide BUN Creatinine Glucose POC Glucose 148 H Lactic Acid Calcium Magnesium Iron TIBC Ferritin AST ALT Lactate Dehydrogenase Troponin T C-Reactive Protein Total Protein Albumin Prealbumin Cholesterol LDL Cholesterol Direct HDL Cholesterol Urine WBC (Auto) Vancomycin Trough Coronavirus (PCR) Crossmatch 07/18/19 07/18/19 07/18/19 04:49 05:22 05:22 WBC 15.9 H RBC 3.00 L Hgb 8.1 L Hct 26.0 L MCV MCH 27 L MCHC 31 L RDW 19.4 H Plt Count 733 H Lymph % (Auto) 6.3 L [place] % (Auto) 7.4 H Lymph # 1.0 L [place] # 1.2 H Baso # 0.2 H Seg Neutrophils % 83.8 H Seg Neuts % (Manual) Lymphocytes % (Manual) Monocytes % (Manual) Nucleated RBC % Seg Neutrophils # 13.3 H Seg Neutrophils # Man Lymphocytes # (Manual) Monocytes # (Manual) PT INR D-Dimer ABG pH ABG pO2 ABG HCO3 ABG O2 Saturation ABG Base Excess ABG Hemoglobin Oxyhemoglobin Sodium Potassium Chloride 110.6 H Carbon Dioxide BUN 61 H Creatinine Glucose 109 H POC Glucose 116 H Lactic Acid Calcium Magnesium Iron TIBC Ferritin AST ALT Lactate Dehydrogenase Troponin T C-Reactive Protein Total Protein Albumin Prealbumin Cholesterol LDL Cholesterol Direct HDL Cholesterol Urine WBC (Auto) Vancomycin Trough Coronavirus (PCR) Crossmatch 07/18/19 07/18/19 07/18/19 12:23 18:06 22:20 WBC RBC Hgb Hct MCV MCH MCHC RDW Plt Count Lymph % (Auto) [place] % (Auto) Lymph # [place] # Baso # Seg Neutrophils % Seg Neuts % (Manual) Lymphocytes % (Manual) Monocytes % (Manual) Nucleated RBC % Seg Neutrophils # Seg Neutrophils # Man Lymphocytes # (Manual) Monocytes # (Manual) PT INR D-Dimer ABG pH 7.338 L ABG pO2 135.1 H ABG HCO3 ABG O2 Saturation ABG Base Excess ABG Hemoglobin 9.2 L Oxyhemoglobin Sodium Potassium Chloride Carbon Dioxide BUN Creatinine Glucose POC Glucose 114 H 113 H Lactic Acid Calcium Magnesium Iron TIBC Ferritin AST ALT Lactate Dehydrogenase Troponin T C-Reactive Protein Total Protein Albumin Prealbumin Cholesterol LDL Cholesterol Direct HDL Cholesterol Urine WBC (Auto) Vancomycin Trough Coronavirus (PCR) Crossmatch 07/18/19 07/19/19 07/19/19 23:33 03:45 05:18 WBC RBC Hgb Hct MCV MCH MCHC RDW Plt Count Lymph % (Auto) [place] % (Auto) Lymph # [place] # Baso # Seg Neutrophils % Seg Neuts % (Manual) Lymphocytes % (Manual) Monocytes % (Manual) Nucleated RBC % Seg Neutrophils # Seg Neutrophils # Man Lymphocytes # (Manual) Monocytes # (Manual) PT INR D-Dimer ABG pH 7.342 L ABG pO2 95.0 H ABG HCO3 ABG O2 Saturation ABG Base Excess ABG Hemoglobin 8.5 L Oxyhemoglobin Sodium Potassium Chloride Carbon Dioxide BUN Creatinine Glucose POC Glucose 125 H 111 H Lactic Acid Calcium Magnesium Iron TIBC Ferritin AST ALT Lactate Dehydrogenase Troponin T C-Reactive Protein Total Protein Albumin Prealbumin Cholesterol LDL Cholesterol Direct HDL Cholesterol Urine WBC (Auto) Vancomycin Trough Coronavirus (PCR) Crossmatch 07/19/19 07/19/19 07/19/19 08:45 08:45 11:47 WBC 15.9 H RBC 3.31 L Hgb 9.1 L Hct 28.4 L MCV MCH 27 L MCHC RDW 19.1 H Plt Count 858 H Lymph % (Auto) 4.9 L [place] % (Auto) 8.1 H Lymph # 0.8 L [place] # 1.3 H Baso # Seg Neutrophils % 85.5 H Seg Neuts % (Manual) Lymphocytes % (Manual) Monocytes % (Manual) Nucleated RBC % Seg Neutrophils # 13.6 H Seg Neutrophils # Man Lymphocytes # (Manual) Monocytes # (Manual) PT INR D-Dimer ABG pH ABG pO2 ABG HCO3 ABG O2 Saturation ABG Base Excess ABG Hemoglobin Oxyhemoglobin Sodium Potassium Chloride 111.6 H Carbon Dioxide BUN 50 H Creatinine 0.7 L Glucose 118 H POC Glucose 114 H Lactic Acid Calcium Magnesium Iron TIBC Ferritin AST ALT Lactate Dehydrogenase Troponin T C-Reactive Protein Total Protein Albumin Prealbumin Cholesterol LDL Cholesterol Direct HDL Cholesterol Urine WBC (Auto) Vancomycin Trough Coronavirus (PCR) Crossmatch 07/19/19 07/19/19 07/20/19 18:25 23:44 04:39 WBC RBC Hgb Hct MCV MCH MCHC RDW Plt Count Lymph % (Auto) [place] % (Auto) Lymph # [place] # Baso # Seg Neutrophils % Seg Neuts % (Manual) Lymphocytes % (Manual) Monocytes % (Manual) Nucleated RBC % Seg Neutrophils # Seg Neutrophils # Man Lymphocytes # (Manual) Monocytes # (Manual) PT INR D-Dimer ABG pH ABG pO2 ABG HCO3 ABG O2 Saturation ABG Base Excess ABG Hemoglobin Oxyhemoglobin Sodium Potassium Chloride 110.3 H Carbon Dioxide BUN 44 H Creatinine 0.6 L Glucose 120 H POC Glucose 115 H 117 H Lactic Acid Calcium Magnesium Iron TIBC Ferritin AST ALT Lactate Dehydrogenase Troponin T C-Reactive Protein Total Protein Albumin Prealbumin Cholesterol LDL Cholesterol Direct HDL Cholesterol Urine WBC (Auto) Vancomycin Trough Coronavirus (PCR) Crossmatch 07/20/19 07/21/19 07/21/19 05:30 11:59 17:40 WBC RBC Hgb Hct MCV MCH MCHC RDW Plt Count Lymph % (Auto) [place] % (Auto) Lymph # [place] # Baso # Seg Neutrophils % Seg Neuts % (Manual) Lymphocytes % (Manual) Monocytes % (Manual) Nucleated RBC % Seg Neutrophils # Seg Neutrophils # Man Lymphocytes # (Manual) Monocytes # (Manual) PT INR D-Dimer ABG pH ABG pO2 ABG HCO3 ABG O2 Saturation ABG Base Excess ABG Hemoglobin Oxyhemoglobin Sodium Potassium Chloride Carbon Dioxide BUN Creatinine Glucose POC Glucose 131 H 122 H 125 H Lactic Acid Calcium Magnesium Iron TIBC Ferritin AST ALT Lactate Dehydrogenase Troponin T C-Reactive Protein Total Protein Albumin Prealbumin Cholesterol LDL Cholesterol Direct HDL Cholesterol Urine WBC (Auto) Vancomycin Trough Coronavirus (PCR) Crossmatch 07/22/19 07/22/19 07/22/19 05:38 05:38 12:29 WBC 12.6 H RBC 3.19 L Hgb 8.9 L Hct 27.5 L MCV MCH MCHC RDW 18.9 H Plt Count 1101 H* Lymph % (Auto) [place] % (Auto) 12.2 H Lymph # [place] # 1.5 H Baso # Seg Neutrophils % 72.8 H Seg Neuts % (Manual) 76.0 H Lymphocytes % (Manual) 7.0 L Monocytes % (Manual) 14.0 H Nucleated RBC % 1.0 H Seg Neutrophils # 9.2 H Seg Neutrophils # Man 9.6 H Lymphocytes # (Manual) 0.9 L Monocytes # (Manual) 1.8 H PT INR D-Dimer ABG pH ABG pO2 ABG HCO3 ABG O2 Saturation ABG Base Excess ABG Hemoglobin Oxyhemoglobin Sodium Potassium 3.4 L Chloride Carbon Dioxide BUN 29 H Creatinine 0.5 L Glucose POC Glucose 116 H Lactic Acid Calcium Magnesium Iron TIBC Ferritin AST ALT Lactate Dehydrogenase Troponin T C-Reactive Protein Total Protein Albumin Prealbumin Cholesterol LDL Cholesterol Direct HDL Cholesterol Urine WBC (Auto) Vancomycin Trough Coronavirus (PCR) Crossmatch 07/22/19 07/22/19 07/23/19 18:20 23:51 04:52 WBC RBC Hgb Hct MCV MCH MCHC RDW Plt Count Lymph % (Auto) [place] % (Auto) Lymph # [place] # Baso # Seg Neutrophils % Seg Neuts % (Manual) Lymphocytes % (Manual) Monocytes % (Manual) Nucleated RBC % Seg Neutrophils # Seg Neutrophils # Man Lymphocytes # (Manual) Monocytes # (Manual) PT INR D-Dimer ABG pH ABG pO2 ABG HCO3 ABG O2 Saturation ABG Base Excess ABG Hemoglobin Oxyhemoglobin Sodium Potassium Chloride Carbon Dioxide BUN 24 H Creatinine 0.4 L Glucose POC Glucose 107 H 110 H Lactic Acid Calcium Magnesium Iron TIBC Ferritin AST ALT Lactate Dehydrogenase Troponin T C-Reactive Protein Total Protein Albumin Prealbumin Cholesterol LDL Cholesterol Direct HDL Cholesterol Urine WBC (Auto) Vancomycin Trough Coronavirus (PCR) Crossmatch 07/23/19 07/23/19 07/24/19 06:00 23:15 04:40 WBC RBC Hgb Hct MCV MCH MCHC RDW Plt Count Lymph % (Auto) [place] % (Auto) Lymph # [place] # Baso # Seg Neutrophils % Seg Neuts % (Manual) Lymphocytes % (Manual) Monocytes % (Manual) Nucleated RBC % Seg Neutrophils # Seg Neutrophils # Man Lymphocytes # (Manual) Monocytes # (Manual) PT INR D-Dimer ABG pH ABG pO2 73.5 L ABG HCO3 27.0 H 28.5 H ABG O2 Saturation 94.5 L ABG Base Excess ABG Hemoglobin 9.4 L 8.9 L Oxyhemoglobin 94.0 L 92.7 L Sodium Potassium Chloride Carbon Dioxide BUN Creatinine Glucose POC Glucose 117 H Lactic Acid Calcium Magnesium Iron TIBC Ferritin AST ALT Lactate Dehydrogenase Troponin T C-Reactive Protein Total Protein Albumin Prealbumin Cholesterol LDL Cholesterol Direct HDL Cholesterol Urine WBC (Auto) Vancomycin Trough Coronavirus (PCR) Crossmatch 07/24/19 07/24/19 07/25/19 05:25 12:06 00:16 WBC RBC Hgb Hct MCV MCH MCHC RDW Plt Count Lymph % (Auto) [place] % (Auto) Lymph # [place] # Baso # Seg Neutrophils % Seg Neuts % (Manual) Lymphocytes % (Manual) Monocytes % (Manual) Nucleated RBC % Seg Neutrophils # Seg Neutrophils # Man Lymphocytes # (Manual) Monocytes # (Manual) PT INR D-Dimer ABG pH ABG pO2 ABG HCO3 ABG O2 Saturation ABG Base Excess ABG Hemoglobin Oxyhemoglobin Sodium Potassium Chloride Carbon Dioxide BUN Creatinine Glucose POC Glucose 114 H 108 H 106 H Lactic Acid Calcium Magnesium Iron TIBC Ferritin AST ALT Lactate Dehydrogenase Troponin T C-Reactive Protein Total Protein Albumin Prealbumin Cholesterol LDL Cholesterol Direct HDL Cholesterol Urine WBC (Auto) Vancomycin Trough Coronavirus (PCR) Crossmatch 07/25/19 07/25/19 07/25/19 05:14 05:14 05:17 WBC 17.8 H RBC 3.32 L Hgb 9.2 L Hct 28.6 L MCV MCH MCHC RDW 19.9 H Plt Count 994 H Lymph % (Auto) [place] % (Auto) Lymph # [place] # Baso # Seg Neutrophils % Seg Neuts % (Manual) 82.0 H Lymphocytes % (Manual) 5.0 L Monocytes % (Manual) Nucleated RBC % Seg Neutrophils # Seg Neutrophils # Man 14.6 H Lymphocytes # (Manual) 0.9 L Monocytes # (Manual) 1.2 H PT INR D-Dimer ABG pH ABG pO2 ABG HCO3 ABG O2 Saturation ABG Base Excess ABG Hemoglobin Oxyhemoglobin Sodium Potassium Chloride Carbon Dioxide BUN Creatinine 0.4 L Glucose 110 H POC Glucose 107 H Lactic Acid Calcium Magnesium Iron TIBC Ferritin AST ALT Lactate Dehydrogenase Troponin T C-Reactive Protein Total Protein Albumin Prealbumin Cholesterol LDL Cholesterol Direct HDL Cholesterol Urine WBC (Auto) Vancomycin Trough Coronavirus (PCR) Crossmatch 07/25/19 07/25/19 07/26/19 11:55 23:49 06:01 WBC RBC Hgb Hct MCV MCH MCHC RDW Plt Count Lymph % (Auto) [place] % (Auto) Lymph # [place] # Baso # Seg Neutrophils % Seg Neuts % (Manual) Lymphocytes % (Manual) Monocytes % (Manual) Nucleated RBC % Seg Neutrophils # Seg Neutrophils # Man Lymphocytes # (Manual) Monocytes # (Manual) PT INR D-Dimer ABG pH ABG pO2 ABG HCO3 ABG O2 Saturation ABG Base Excess ABG Hemoglobin Oxyhemoglobin Sodium Potassium Chloride Carbon Dioxide BUN Creatinine Glucose POC Glucose 123 H 118 H 106 H Lactic Acid Calcium Magnesium Iron TIBC Ferritin AST ALT Lactate Dehydrogenase Troponin T C-Reactive Protein Total Protein Albumin Prealbumin Cholesterol LDL Cholesterol Direct HDL Cholesterol Urine WBC (Auto) Vancomycin Trough Coronavirus (PCR) Crossmatch 07/26/19 07/27/19 07/27/19 17:02 00:28 05:16 WBC RBC Hgb Hct MCV MCH MCHC RDW Plt Count Lymph % (Auto) [place] % (Auto) Lymph # [place] # Baso # Seg Neutrophils % Seg Neuts % (Manual) Lymphocytes % (Manual) Monocytes % (Manual) Nucleated RBC % Seg Neutrophils # Seg Neutrophils # Man Lymphocytes # (Manual) Monocytes # (Manual) PT INR D-Dimer ABG pH ABG pO2 63.4 L ABG HCO3 31.3 H ABG O2 Saturation 92.7 L ABG Base Excess 6.3 H ABG Hemoglobin 7.6 L Oxyhemoglobin 90.9 L Sodium Potassium Chloride Carbon Dioxide BUN Creatinine Glucose POC Glucose 116 H 158 H Lactic Acid Calcium Magnesium Iron TIBC Ferritin AST ALT Lactate Dehydrogenase Troponin T C-Reactive Protein Total Protein Albumin Prealbumin Cholesterol LDL Cholesterol Direct HDL Cholesterol Urine WBC (Auto) Vancomycin Trough Coronavirus (PCR) Crossmatch 07/28/19 07/28/19 07/28/19 10:13 10:13 23:54 WBC 18.5 H RBC 3.20 L Hgb 8.8 L Hct 26.8 L MCV MCH 27 L MCHC RDW 19.9 H Plt Count 730 H Lymph % (Auto) [place] % (Auto) Lymph # [place] # Baso # Seg Neutrophils % Seg Neuts % (Manual) Lymphocytes % (Manual) Monocytes % (Manual) Nucleated RBC % Seg Neutrophils # Seg Neutrophils # Man Lymphocytes # (Manual) Monocytes # (Manual) PT INR D-Dimer ABG pH ABG pO2 ABG HCO3 ABG O2 Saturation ABG Base Excess ABG Hemoglobin Oxyhemoglobin Sodium Potassium 3.2 L Chloride 97.5 L Carbon Dioxide 31 H BUN Creatinine 0.5 L Glucose POC Glucose 120 H Lactic Acid Calcium Magnesium Iron TIBC Ferritin AST ALT Lactate Dehydrogenase Troponin T C-Reactive Protein Total Protein Albumin Prealbumin Cholesterol LDL Cholesterol Direct HDL Cholesterol Urine WBC (Auto) Vancomycin Trough Coronavirus (PCR) Crossmatch 07/29/19 07/29/19 07/29/19 11:57 17:43 Unknown WBC RBC Hgb Hct MCV MCH MCHC RDW Plt Count Lymph % (Auto) [place] % (Auto) Lymph # [place] # Baso # Seg Neutrophils % Seg Neuts % (Manual) Lymphocytes % (Manual) Monocytes % (Manual) Nucleated RBC % Seg Neutrophils # Seg Neutrophils # Man Lymphocytes # (Manual) Monocytes # (Manual) PT INR D-Dimer ABG pH ABG pO2 ABG HCO3 ABG O2 Saturation ABG Base Excess ABG Hemoglobin Oxyhemoglobin Sodium Potassium Chloride Carbon Dioxide BUN Creatinine Glucose POC Glucose 112 H Lactic Acid Calcium Magnesium Iron TIBC Ferritin AST ALT Lactate Dehydrogenase Troponin T C-Reactive Protein Total Protein Albumin Prealbumin Cholesterol LDL Cholesterol Direct HDL Cholesterol Urine WBC (Auto) 63.0 H Vancomycin Trough Coronavirus (PCR) Positive A Crossmatch 07/30/19 07/30/19 07/30/19 00:20 04:35 04:35 WBC 24.3 H RBC 3.12 L Hgb 8.5 L Hct 26.3 L MCV MCH 27 L MCHC RDW 20.2 H Plt Count 550 H Lymph % (Auto) [place] % (Auto) Lymph # [place] # Baso # Seg Neutrophils % Seg Neuts % (Manual) Lymphocytes % (Manual) Monocytes % (Manual) Nucleated RBC % Seg Neutrophils # Seg Neutrophils # Man Lymphocytes # (Manual) Monocytes # (Manual) PT INR D-Dimer ABG pH ABG pO2 ABG HCO3 ABG O2 Saturation ABG Base Excess ABG Hemoglobin Oxyhemoglobin Sodium Potassium 3.0 L Chloride 96.3 L Carbon Dioxide 32 H BUN Creatinine 0.5 L Glucose POC Glucose 106 H Lactic Acid Calcium Magnesium Iron TIBC Ferritin AST ALT Lactate Dehydrogenase Troponin T C-Reactive Protein Total Protein Albumin Prealbumin Cholesterol LDL Cholesterol Direct HDL Cholesterol Urine WBC (Auto) Vancomycin Trough Coronavirus (PCR) Crossmatch 07/31/19 07/31/19 07/31/19 04:42 04:42 11:33 WBC 23.8 H RBC 3.10 L Hgb 8.4 L Hct 26.1 L MCV MCH 27 L MCHC RDW 19.6 H Plt Count 561 H Lymph % (Auto) [place] % (Auto) Lymph # [place] # Baso # Seg Neutrophils % Seg Neuts % (Manual) Lymphocytes % (Manual) Monocytes % (Manual) Nucleated RBC % Seg Neutrophils # Seg Neutrophils # Man Lymphocytes # (Manual) Monocytes # (Manual) PT INR D-Dimer ABG pH ABG pO2 ABG HCO3 ABG O2 Saturation ABG Base Excess ABG Hemoglobin Oxyhemoglobin Sodium 135 L Potassium Chloride 93.9 L Carbon Dioxide 32 H BUN Creatinine 0.4 L Glucose POC Glucose 116 H Lactic Acid Calcium Magnesium Iron TIBC Ferritin AST ALT Lactate Dehydrogenase Troponin T C-Reactive Protein Total Protein Albumin 1.6 L Prealbumin 0.037 L Cholesterol LDL Cholesterol Direct HDL Cholesterol Urine WBC (Auto) Vancomycin Trough Coronavirus (PCR) Crossmatch Chest x-ray: pending Allied health notes reviewed: nursing
[2019-07-31] MEDS: SCOPOLAMINE TRANSDERMAL PATCH 72 HR TD SCH (15:09)
[2019-08-01] MEDS: fentaNYL DRIP Premix 2,000 MCG/100 ML BAG IV SCH ×2 (03:17→14:18)
[2019-08-01] MEDS: CEFEPIME/NS 1 GM/100 ML 1 GM/100 ML BAG IV SCH ×3 (05:14→21:19)
[2019-08-01] MEDS: INSULIN LISPRO 100 UNIT/ML SUB-Q SCH ×4 (05:15→18:32)
[2019-08-01 06:32] LABS: Hematocrit 26.3 % (35.5-45.6); Hemoglobin 8.5 gm/dl (11.8-15.2); Mean Corpuscular HGB Conc 32 % (32-34); Mean Corpuscular Volume 84 fl (84-94); Platelet Count 602 K/mm3 (140-440); Red Blood Count 3.12 M/mm3 (3.65-5.03); Red Cell Distribution Width 19.2 % (13.2-15.2)
[2019-08-01 06:48] LABS: BUN/Creatinine Ratio 40; Blood Urea Nitrogen 12 mg/dL (9-20); Calcium 8.1 mg/dL (8.4-10.2); Hemolysis Index 21
[2019-08-01 08:08] LABS: Anisocytosis 1+; Basophils % (Manual) 0 % (0.0-1.8); Eosinophils % (Manual) 0 % (0.0-4.3); Myelocytes # (Manual) 0.3 K/mm3; Total Cells Counted 100
[2019-08-01] MEDS: SODIUM HYPOCHLORITE, DAKIN'S 1/2 STRENGTH (0.25%) 473 ML TOPICAL SOLN TP SCH ×3 (08:08→21:17)
[2019-08-01 08:09] LABS: Hypochromasia 1+; Platelet Estimate Consistent w Auto; Stomatocytes Few
[2019-08-01] MEDS: FAMOTIDINE 20 MG TAB PO SCH ×2 (09:00→21:16)
[2019-08-01] MEDS: FOLIC ACID 1 MG TAB PO SCH (09:01)
[2019-08-01] MEDS: levETIRAcetam 500 MG/5 ML ORAL LIQD FEEDTUBE SCH ×2 (09:01→21:16)
[2019-08-01] MEDS: DOCUSATE SODIUM 100 MG/10 ML ORAL LIQD PO SCH ×2 (09:01→21:18)
[2019-08-01] MEDS: ASPIRIN 81 MG TAB CHEW PO SCH (09:02)
[2019-08-01] MEDS: ENOXAPARIN 40 MG/0.4 ML INJ SUB-Q SCH (10:26)
--- NOTE | 2019-08-01 12:19 | Progress Note ---
Assessment and Plan Assessment and plan: --COVid positive pneumonia with severe sepsis Received Plaquenil and cefepime, monitor off antibiotics ID following --Septic shock: On Levophed Persistent hypotension, titrate to systolic blood pressure more than 100 -- Acute respiratory Failure with Hypoxia Due to bilateral PNA with COVID 19 infection. On ventilatory support, unable to wean Pulmonary critical following --COPD with exacerbation Likely due to COVID-19 pneumonia Continue scheduled nebs --Anemia, Microcytic persistent s/p total 3 unit of PRBC, today Hb today 9.1 --Pressure Ulcers: POA buttocks, right lateral foot area wound and supportive care --Hyponatremia, resolved --DM type 2: Accu-Chek SCC tube feeding, insulin as needed --h/o HTN Essential, now hypotensive On Levophed --Seizure D/o/CVA/immobility/BIpolar D/o/SCZ Seizure precautions, antiepileptic medications --Severe PCM, TF supportive care, dietary following patient is DNR- Called and verified information Very poor prognosis, Recommend hospice 07/04: COVID +ve, start on plaquinil, called no answer 07/05: transfuse one unit PRBC, Hb dropped to ~6, called and updated 07/06; H&H stable, serum chemistry improved. On mechanical ventilation with high inflammatory markers. Continue Plaquenil and empiric antibiotics. ID following, prognosis remains guarded and extremely poor. 07/07: On mechanical ventilation with high inflammatory markers. Continue Plaquenil and empiric antibiotics. ID following, prognosis remains guarded and extremely poor. 07/08: Called today and verified the CODE STATUS. Patient remains DNR. He is still intubated, with poor prognosis. Continue to follow inflammatory markers. 07/09 wean off from vent as tolerated, completed empiric antibiotic and Plaquenil 07/10 wean off from vent as tolerated. poor prognosis 07/11 hb 6.7 today, transfuse one PRBC. wean off from vent as tolerated. poor prognosis 07/12 remains critically on vent. Hb 6.9 07/13 Hb dropped to 6.6, transfuse 1 unit of PRBC, remains on vent critically ill Hypotensive, fluid bolus, if no improvement start Levophed 07/14; remains anemic with hemoglobin of 6.8, received total 3 units of PRBC Additional 1 unit of PRBC today, stool for occult blood to rule out GI causes Started back on Levophed due to hypotension 07/15; patient remains critically ill, hypotensive on Levophed 07/16: Today remains intubated on vent, persistent hypotension on Levophed 07/17; clinically no change, pressor dependent[on Levophed] DNR status 07/18: Patient remains hypotensive requiring Levophed, intubated on vent Unable to wean, critically ill. DNR 07/20/2019 Patient remains hypotensive requiring Levophed, intubated on vent. Patient currently with AC mode ventilation, rate 20, tidal volume 500, FiO2 40% and PEEP 6. Patient is a poor prognosis and apparently was on hospice recently. 07/21/2019. Patient with PEG tube that was clogged yesterday. surgery evaluated the patient and noted Very long PEG tubing with thick material inside. The ent celsa tube was stripped and a large amount of formed tube feed was expressed. The tube was then flushed with sprite and flushed easily. Tube clamped. Patient currently with AC mode ventilation, rate 20, tidal volume 500, FiO2 40% and PEEP 6. Patient is a poor prognosis and apparently was on hospice recently. 07/22/2019. Patient currently with AC mode ventilation, rate 20, tidal volume 500, FiO2 30% and PEEP 6. Patient on sedation with fentanyl drip. Continue Levophed to maintain MAP greater than 65. Patient is a poor prognosis and apparently was on hospice recently. 07/23/2019. Patient currently with AC mode ventilation, rate 20, tidal volume 500, FiO2 30% and PEEP 6. Patient on sedation with fentanyl drip. Continue Levophed to maintain MAP greater than 65. Patient is a poor prognosis and apparently was on hospice recently. 07/24/2019 Patient with Covid-19 infection with pneumonia, acute respiratory failure, intubated on ventilator. No more fever. Continue current management. 07/25/2019 Patient with Covid-19 infection with pneumonia, acute respiratory failure, intubated on ventilator. fever is now resolved. Sedated with propofol 07/26/2019 Patient with covid-19 infection. Still intubated, on vent. 07/27/2019 Patient with Covid-19. he is still critically ill. patient has DNR order. 07/28/2019 Patient with Covid-19 infection. Will repeat labs today. Surgeon consulted for tracheostomy. 07/29/2019 Patient with Covid-19. hypokalemia yesterday, replaced. Will recheck labs in am. 07/30/2019 patient with Covid-19 infection with acute respiratory failure. He is intubated on ventilator. has hypokalemia. replace and recheck BMP in am. patient has UTI, started on Cefepime. 07/31/2019. patient with Covid-19 infection with acute respiratory failure. He is intubated on ventilator. Repeat chest x-ray reveals decreased infiltrates. urology consultation and wound care consult per ID. Follow-up urine and blood culture. Tracheostomy per surgery. 08/01/2019. patient with Covid-19 infection with acute respiratory failure. He is intubated on ventilator. Patient currently with PSV trials. Pressure support 18/PEEP 6. FiO2 30%. Tracheostomy to be placed per surgery wound COVID testing negative. The high probability of a clinically significant, sudden or life threatening deterioration of the [respiratory, CVS, [employer]STATION OPER[employer]] system(s) required my full and direct attention, intervention and personal management. The aggregate critical care time was [32] minutes. This time is in addition to time spent performing reported procedures but includes the following: [x] Data Review and interpretation [x] Patient assessment and monitoring of vital signs [x] Documentation [x] Medication orders and management History Interval history: 69-year-old male patient with PMH of CVA with RHP, HTN, DM2, SCZ, Dementia, Alcohol use D/o, Seizure D/O, presents to the emergency department via EMS from home with progressive SOB and impending espiratory failure with an unresponsive . PT was intubated was admitted through emergency room to ICU treated for sepsis, b/l PNA, acute respiratory failure received antibiotics. Patient was tested positive for COVID19. Evaluated by ID , received antibiotics Plaquenil, and inflammatory markers were checked and followed. Patient was hypotensive requiring Levophed, continues to be hypotensive currently on Levophed, unable to wean remains intubated on ventilatory support, critically ill, DNR status however family wants full treatment. Hospitalist Physical - Constitutional Vitals: Temp Pulse Resp BP Pulse Ox 97.8 F 111 H 29 H 125/73 96 08/01/19 08:00 08/01/19 11:57 08/01/19 11:57 08/01/19 11:57 08/01/19 11:57 General appearance: Present: severe distress, well-nourished, other (Orally intubated on vent) - EENT Eyes: Present: PERRL, EOM intact ENT: hearing intact, clear oral mucosa, dentition normal - Neck Neck: Present: supple, normal ROM - Respiratory Respiratory effort: normal Respiratory: bilateral: CTA - Cardiovascular Rhythm: regular Heart Sounds: Present: S1 & S2. Absent: gallop, rub - Extremities Extremities: no ischemia, No edema, Full ROM - Abdominal General gastrointestinal: soft, non-tender, non-distended, normal bowel sounds - Integumentary Integumentary: Present: clear, warm, dry - Neurologic Neurologic: CNII-XII intact, moves all extremities Results - Labs CBC & Chem 7: 08/01/19 04:57 08/01/19 04:57 Labs: Laboratory Last Values WBC 26.7 K/mm3 (4.5-11.0) H 08/01/19 04:57 RBC 3.12 M/mm3 (3.65-5.03) L 08/01/19 04:57 Hgb 8.5 gm/dl (11.8-15.2) L 08/01/19 04:57 Hct 26.3 % (35.5-45.6) L 08/01/19 04:57 MCV 84 fl (84-94) 08/01/19 04:57 MCH 27 pg (28-32) L 08/01/19 04:57 MCHC 32 % (32-34) 08/01/19 04:57 RDW 19.2 % (13.2-15.2) H 08/01/19 04:57 Plt Count 602 K/mm3 (140-440) H 08/01/19 04:57 Lymph % (Auto) 4.9 % (13.4-35.0) L 07/19/19 08:45 Bay % (Auto) 12.2 % (0.0-7.3) H 07/22/19 05:38 Eos % (Auto) 1.0 % (0.0-4.3) 07/19/19 08:45 Baso % (Auto) 0.5 % (0.0-1.8) 07/19/19 08:45 Lymph # 0.8 K/mm3 (1.2-5.4) L 07/19/19 08:45 Bay # 1.5 K/mm3 (0.0-0.8) H 07/22/19 05:38 Eos # 0.2 K/mm3 (0.0-0.4) 07/19/19 08:45 Baso # 0.1 K/mm3 (0.0-0.1) 07/19/19 08:45 Add Manual Diff Complete 08/01/19 04:57 Total Counted 100 08/01/19 04:57 Seg Neutrophils % 72.8 % (40.0-70.0) H 07/22/19 05:38 Seg Neuts % (Manual) 93.0 % (40.0-70.0) H 08/01/19 04:57 Band Neutrophils % 0 % 08/01/19 04:57 Lymphocytes % (Manual) 2.0 % (13.4-35.0) L 08/01/19 04:57 Reactive Lymphs % (Man) 0 % 08/01/19 04:57 Monocytes % (Manual) 4.0 % (0.0-7.3) 08/01/19 04:57 Eosinophils % (Manual) 0 % (0.0-4.3) 08/01/19 04:57 Basophils % (Manual) 0 % (0.0-1.8) 08/01/19 04:57 Metamyelocytes % 0 % 08/01/19 04:57 Myelocytes % 1.0 % 08/01/19 04:57 Promyelocytes % 0 % 08/01/19 04:57 Blast Cells % 0 % 08/01/19 04:57 Nucleated RBC % Not Reportable 08/01/19 04:57 Seg Neutrophils # 9.2 K/mm3 (1.8-7.7) H 07/22/19 05:38 Seg Neutrophils # Man 24.8 K/mm3 (1.8-7.7) H 08/01/19 04:57 Band Neutrophils # 0.0 K/mm3 08/01/19 04:57 Lymphocytes # (Manual) 0.5 K/mm3 (1.2-5.4) L 08/01/19 04:57 Abs React Lymphs (Man) 0.0 K/mm3 08/01/19 04:57 Monocytes # (Manual) 1.1 K/mm3 (0.0-0.8) H 08/01/19 04:57 Eosinophils # (Manual) 0.0 K/mm3 (0.0-0.4) 08/01/19 04:57 Basophils # (Manual) 0.0 K/mm3 (0.0-0.1) 08/01/19 04:57 Metamyelocytes # 0.0 K/mm3 08/01/19 04:57 Myelocytes # 0.3 K/mm3 08/01/19 04:57 Promyelocytes # 0.0 K/mm3 08/01/19 04:57 Blast Cells # 0.0 K/mm3 08/01/19 04:57 WBC Morphology Not Reportable 08/01/19 04:57 Hypersegmented Neuts Not Reportable 08/01/19 04:57 Hyposegmented Neuts Not Reportable 08/01/19 04:57 Hypogranular Neuts Not Reportable 08/01/19 04:57 Smudge Cells Not Reportable 08/01/19 04:57 Toxic Granulation Not Reportable 08/01/19 04:57 Toxic Vacuolation Not Reportable 08/01/19 04:57 Dohle Bodies Not Reportable 08/01/19 04:57 Pelger-Huet Anomaly Not Reportable 08/01/19 04:57 Mendy Rods Not Reportable 08/01/19 04:57 Platelet Estimate Consistent w auto 08/01/19 04:57 Clumped Platelets Not Reportable 08/01/19 04:57 Plt Clumps, EDTA Not Reportable 08/01/19 04:57 Large Platelets Not Reportable 08/01/19 04:57 Giant Platelets Not Reportable 08/01/19 04:57 Platelet Satelliting Not Reportable 08/01/19 04:57 Plt Morphology Comment Not Reportable 08/01/19 04:57 RBC Morphology Not Reportable 08/01/19 04:57 Dimorphic RBCs Not Reportable 08/01/19 04:57 Polychromasia Not Reportable 08/01/19 04:57 Hypochromasia 1+ 08/01/19 04:57 Poikilocytosis Not Reportable 08/01/19 04:57 Anisocytosis 1+ 08/01/19 04:57 Microcytosis Not Reportable 08/01/19 04:57 Macrocytosis Not Reportable 08/01/19 04:57 Spherocytes Not Reportable 08/01/19 04:57 Pappenheimer Bodies Not Reportable 08/01/19 04:57 Sickle Cells Not Reportable 08/01/19 04:57 Target Cells Not Reportable 08/01/19 04:57 Tear Drop Cells Not Reportable 08/01/19 04:57 Ovalocytes Not Reportable 08/01/19 04:57 Stomatocytes Few 08/01/19 04:57 Helmet Cells Not Reportable 08/01/19 04:57 Altman-Whitefield Bodies Not Reportable 08/01/19 04:57 [employer] Rings Not Reportable 08/01/19 04:57 Joanne Cells Not Reportable 08/01/19 04:57 Bite Cells Not Reportable 08/01/19 04:57 Crenated Cell Not Reportable 08/01/19 04:57 Elliptocytes Not Reportable 08/01/19 04:57 Acanthocytes (Spur) Not Reportable 08/01/19 04:57 Rouleaux Not Reportable 08/01/19 04:57 Hemoglobin C Crystals Not Reportable 08/01/19 04:57 Schistocytes Not Reportable 08/01/19 04:57 Malaria parasites Not Reportable 08/01/19 04:57 Jeevan Bodies Not Reportable 08/01/19 04:57 Hem Pathologist Commnt No 08/01/19 04:57 PT 16.0 Sec. (12.2-14.9) H 07/03/19 22:20 INR 1.26 (0.87-1.13) H 07/03/19 22:20 D-Dimer 1142.18 ng/mlDDU (0-234) H 07/08/19 00:45 ABG pH 7.430 pH Units (7.350-7.450) 07/27/19 05:16 ABG pCO2 48.2 mm Hg 07/27/19 05:16 ABG pO2 63.4 mm Hg (80.0-90.0) L 07/27/19 05:16 ABG HCO3 31.3 mmol/L (20.0-26.0) H 07/27/19 05:16 ABG O2 Saturation 92.7 % (95.0-99.0) L 07/27/19 05:16 ABG O2 Content 9.8 (0.0-44) 07/27/19 05:16 ABG Base Excess 6.3 mmol/L (-2.0-3.0) H 07/27/19 05:16 ABG Hemoglobin 7.6 gm/dl (14.0-18.0) L 07/27/19 05:16 ABG Carboxyhemoglobin 1.6 % (0.0-5.0) 07/27/19 05:16 ABG Methemoglobin 0.4 % (0.0-1.5) 07/27/19 05:16 Oxyhemoglobin 90.9 % (95.0-99.0) L 07/27/19 05:16 FiO2 25 % 07/27/19 05:16 Sodium 132 mmol/L (137-145) L 08/01/19 04:57 Potassium 4.3 mmol/L (3.6-5.0) 08/01/19 04:57 Chloride 93.8 mmol/L (98-107) L 08/01/19 04:57 Carbon Dioxide 31 mmol/L (22-30) H 08/01/19 04:57 Anion Gap 12 mmol/L 08/01/19 04:57 BUN 12 mg/dL (9-20) 08/01/19 04:57 Creatinine 0.3 mg/dL (0.8-1.5) L 08/01/19 04:57 Estimated GFR > 60 ml/min 08/01/19 04:57 BUN/Creatinine Ratio 40 % 08/01/19 04:57 Glucose 95 mg/dL (75-100) 08/01/19 04:57 POC Glucose 97 (70-105) 08/01/19 05:08 Osmolality 268 Mosm/kg 07/05/19 04:00 Lactic Acid 3.30 mmol/L (0.7-2.0) H* 07/04/19 07:05 Uric Acid 7.2 mg/dL (3.5-7.6) 07/05/19 04:00 Calcium 8.1 mg/dL (8.4-10.2) L 08/01/19 04:57 Phosphorus 3.60 mg/dL (2.5-4.5) 07/05/19 04:00 Magnesium 1.80 mg/dL (1.7-2.3) 07/11/19 05:14 Iron 9 ug/dL (49-181) L 07/04/19 07:05 TIBC 97 mcg/dL (250-450) L 07/04/19 07:05 Ferritin 839.0 ng/mL (13.0-400.0) H 07/08/19 00:45 Total Bilirubin 0.20 mg/dL (0.1-1.2) 07/04/19 07:05 AST 73 units/L (5-40) H 07/04/19 07:05 ALT 91 units/L (7-56) H 07/04/19 07:05 Alkaline Phosphatase 114 units/L (35-129) 07/04/19 07:05 Ammonia 35.0 umol/L (25-60) 07/03/19 23:58 Lactate Dehydrogenase 277 units/L (91-180) H 07/10/19 04:00 Troponin T 0.013 ng/mL (0.00-0.029) 07/04/19 07:05 C-Reactive Protein 15.10 mg/dL (0.00-1.30) H 07/10/19 04:00 Total Protein 5.5 g/dL (6.3-8.2) L 07/04/19 07:05 Albumin 1.6 g/dL (3.9-5) L 07/31/19 04:42 Albumin/Globulin Ratio 0.6 % 07/04/19 07:05 Prealbumin 0.037 g/L (0.200-0.400) L 07/31/19 04:42 Triglycerides 33 mg/dL (2-149) 07/03/19 19:57 Cholesterol 47 mg/dL (50-199) L 07/03/19 19:57 LDL Cholesterol Direct 25 mg/dL (50-130) L 07/03/19 19:57 HDL Cholesterol 20 mg/dL (40-59) L 07/03/19 19:57 Cholesterol/HDL Ratio 2.35 % 07/03/19 19:57 Procalcitonin 24.82 ng/mL (<0.15) 07/30/19 12:59 TSH 2.170 mlU/mL (0.270-4.200) 07/03/19 22:20 Total Cortisol 28.0 mcg/dL () 07/05/19 10:11 Urine Color Yellow (Yellow) 07/29/19 11:57 Urine Turbidity Clear (Clear) 07/29/19 11:57 Urine pH 7.0 (5.0-7.0) 07/29/19 11:57 Ur Specific [place] 1.012 (1.003-1.030) 07/29/19 11:57 Urine Protein <15 mg/dl mg/dL (Negative) 07/29/19 11:57 Urine Glucose (UA) Neg mg/dL (Negative) 07/29/19 11:57 Urine Ketones Neg mg/dL (Negative) 07/29/19 11:57 Urine Blood Sm (Negative) 07/29/19 11:57 Urine Nitrite Neg (Negative) 07/29/19 11:57 Urine Bilirubin Neg (Negative) 07/29/19 11:57 Urine Urobilinogen 4.0 mg/dL (<2.0) 07/29/19 11:57 Ur Leukocyte Esterase Mod (Negative) 07/29/19 11:57 Urine WBC (Auto) 63.0 /HPF (0.0-6.0) H 07/29/19 11:57 Urine RBC (Auto) 14.0 /HPF (0.0-6.0) 07/29/19 11:57 U Epithel Cells (Auto) < 1.0 /HPF (0-13.0) 07/29/19 11:57 Urine Bacteria (Auto) 1+ /HPF (Negative) 07/29/19 11:57 Urine WBC Clumps Few /HPF 07/03/19 21:13 Urine Mucus Few /HPF 07/03/19 21:13 Urine Osmolality 293 Mosm/kg 07/05/19 08:15 Vancomycin Trough 23.2 ug/mL (5.0-20.0) H 07/05/19 17:54 Urine Opiates Screen Presumptive negative 07/03/19 21:13 Urine Methadone Screen Presumptive negative 07/03/19 21:13 Ur Barbiturates Screen Presumptive negative 07/03/19 21:13 Ur Phencyclidine Scrn Presumptive negative 07/03/19 21:13 Ur Amphetamines Screen Presumptive negative 07/03/19 21:13 U Benzodiazepines Scrn Presumptive negative 07/03/19 21:13 Urine Cocaine Screen Presumptive negative 07/03/19 21:13 U Marijuana (THC) Screen Presumptive negative 07/03/19 21:13 Drugs of Abuse Note Disclamer 07/03/19 21:13 Plasma/Serum Alcohol < 0.01 % (0-0.07) 07/03/19 23:58 Coronavirus (PCR) Positive (Negative) A 07/29/19 Unknown Blood Type B POSITIVE 07/12/19 08:49 Antibody Screen Negative 07/12/19 08:49 Crossmatch See Detail 07/12/19 08:49 Microbiology: Microbiology 07/30/19 Unknown Tracheal Aspirate Sputum Culture - Preliminary 07/30/19 12:59 Peripheral/Venous Blood Culture - Preliminary NO GROWTH AFTER 24 HOURS 07/30/19 12:59 Peripheral/Venous Blood Culture - Preliminary NO GROWTH AFTER 24 HOURS 07/29/19 11:57 Urine,Clean Catch Urine Culture - Final Wright/IV: Voiding Method Indwelling Catheter IV Catheter Type [Left Forearm Peripheral IV ] IV Catheter Type [Left Upper Mid-line arm] IV Catheter Type [Right INT / Saline Lock Forearm] IV Catheter Type [Right Hand] INT / Saline Lock IV Catheter Type [Right CVL Femoral] IV Catheter Type [Left INT / Saline Lock External Jugular] Active Medications - Current Medications Current Medications: Generic Name Dose Route Start Last Admin Trade Name Freq PRN Reason Stop Dose Admin Acetaminophen 650 mg 07/04/19 04:24 Tylenol KS Q6H PRN Pain MILD(1-3)/Fever >100.5/MURO Acetaminophen 650 mg 07/10/19 04:00 07/29/19 12:00 Tylenol PO 650 mg Q6HR PRN Administration Pain, Mild (1-3) FEVER Lipase/Protease/Amylase 1 each 07/04/19 10:04 07/20/19 06:15 Pancreaze 10,500 Unit FEEDTUBE 1 each PRN PRN Administration For Clogged Feeding Tube Aspirin 81 mg 07/05/19 10:00 08/01/19 09:02 Baby Aspirin PO 81 mg QDAY TAMMIE Administration Dextrose 50 ml 07/04/19 06:54 D50w (25gm) Syringe IV Q30MIN PRN Hypoglycemia Protocol Docusate Sodium 100 mg 07/10/19 10:00 08/01/19 09:01 Colace PO 100 mg BID TAMMIE Administration Enoxaparin Sodium 40 mg 07/24/19 10:00 08/01/19 10:26 Enoxaparin SUB-Q 40 mg QDAY@1000 TAMMIE Administration Famotidine 20 mg 07/23/19 22:00 08/01/19 09:00 Pepcid PO 20 mg BID TAMMIE Administration Fentanyl 50 mcg 07/21/19 15:18 Sublimaze IV Q10MIN PRN ANALGESIA Folic Acid 1 mg 07/05/19 10:00 08/01/19 09:01 Folvite PO 1 mg QDAY TAMMIE Administration Hydrophilic Ointment 1 applic 07/03/19 19:56 07/05/19 17:42 Vaseline Lip Therapy TP 1 applic Q2HR PRN Administration Dry Lips Norepinephrine 4 mg in 250 mls @ 7.5 mls/hr 07/03/19 23:00 07/20/19 01:00 Levophed Drip 4 Mg/Ns 250 Ml IV Infused TITR TAMMIE Titration Protocol 2 MCG/MIN Fentanyl Citrate 2,000 mcg in 100 mls @ 4.75 mls/hr 07/21/19 16:00 08/01/19 08:41 Fentanyl Drip Premix IV 1 mcg/kg/hr TITR TAMMIE 4.75 mls/hr Titration Protocol 1 MCG/KG/HR Cefepime HCl 1 gm in 100 mls @ 200 mls/hr 07/29/19 14:00 08/01/19 05:14 Cefepime/Ns 1 Gm/100 Ml IV 200 mls/hr Q8HR TAMMIE Administration Protocol Insulin Human Lispro 0 unit 07/07/19 12:00 08/01/19 08:08 Humalog SUB-Q Not Given Q6HR [facility] Protocol Levetiracetam 750 mg 07/06/19 11:00 08/01/19 09:01 Keppra FEEDTUBE 750 mg Q12HR TAMMIE Administration Metoprolol Tartrate 5 mg 07/12/19 15:08 07/29/19 07:30 Metoprolol IV 5 mg Q6HR PRN Administration Tachyarrhythmias Multi-Ingred Cream/Lotion/Oil/Oint 1 applic 07/03/19 19:56 07/05/19 13:19 Artificial Tears Ophth Oint OU 1 applic Q4HR PRN Administration Dry Eye(s) Naloxone HCl 0.1 mg 07/04/19 04:24 Naloxone IV Q2MIN PRN Res Rate </= 8 or 02 SAT < 92% Oxycodone/Acetaminophen 1 tab 04/30/20 14:17 Percocet 5/325 PO Q4H PRN Pain, Moderate (4-6) Scopolamine 1 each 07/10/19 11:00 07/31/19 15:09 Transderm-Scop TD 1 each Q3D TAMMIE Administration Simple Syrup 15 ml 07/04/19 10:04 07/10/19 21:56 Simple Syrup FEEDTUBE 15 ml PRN PRN Administration Hypoglycemia Simple Syrup 30 ml 07/04/19 10:04 Simple Syrup FEEDTUBE PRN PRN Hypoglycemia Sodium Bicarbonate 325 mg 07/04/19 10:04 07/20/19 10:20 Sodium Bicarbonate FEEDTUBE 325 mg PRN PRN Administration For Clogged Feeding Tube Sodium Chloride 10 ml 07/04/19 10:00 08/01/19 09:03 Sodium Chloride Flush Syringe 10 Ml IV 10 ml BID TAMMIE Administration Sodium Chloride 10 ml 07/04/19 04:24 Sodium Chloride Flush Syringe 10 Ml IV PRN PRN LINE FLUSH Sodium Hypochlorite 1 applic 07/10/19 14:00 08/01/19 09:03 Dakin's Half Strength TP 1 applicatio BID TAMMIE Administration Nutrition/Malnutrition Assess - Dietary Evaluation Nutrition/Malnutrition Findings: Nutrition Notes Start: 07/04/19 09:17 Freq: Status: Active Protocol: Document 07/30/19 14:27 LM (Rec: 07/30/19 14:33 LM [id number]) Nutrition Notes Initial or Follow up Reassessment Current Diagnosis Acute Kidney Injury,COPD, Decubitus(Pressure Ulcer), Diabetes,Hypertension Other Pertinent Diagnosis COVID-19 (+), pneu, seizures, schizophrenia, Buttock and R foot PU, Current Diet TF - Nepro at 45ml/hr Labs/Tests K 3 Pertinent Medications KCl Height 5 ft 11 in Weight 97 kg [place] Body Weight (kg) 78.18 BMI 29.8 Weight Status Overweight Subjective/Other Information Pt tolerating TF at goal. Pt to be getting trach pending COVID-19 test. Percent of energy/protein needs met: 100%/86% Burn Absent Trauma Absent Current % PO Negligible Minimum of two criteria No physical signs of malnutrition #2 Nutrition Diagnosis Increased nutrient needs ( specify in comment below) Diagnosis Progress(for reassessment Continues documentation) #1 Nutrition Diagnosis Inadequate oral intake Diagnosis Progress(for reassessment Continues documentation) Is patient on ventilator? Yes Is Patient Ambulatory and/or Out of Bed No REE-([place]-confined to bed) 2108.112 Kcal/Kg value to use for calculation 20 Approximate Energy Requirements Using 1940 kcal/Kg Calculation Used for Recommendations Kcal/kg Additional Notes Use pro needs based on wt from previous assessment - current wt likely related to fluid retention Protein: 101-168g (1.2-2g/kg) Fluid: 1 ml/kcal or per MD Nutrition Intervention Change Diet Order: Continue TF Nutrition Support: Nepro 1.8 at 45ml/hr Flush 200ml q4h Kcal 1,944 Protein (gm) 87 Fluid (mL) 785 Goal #1 TF tolerance Goal #2 TF to meet at least 75% of energy and protein needs Anticipated Discharge Needs: unable to determine at this time Follow-Up By: 08/01/19 Additional Comments F/U for TF tolerance, K
--- NOTE | 2019-08-01 14:13 | Progress Note ---
Assessment and Plan Acute hypoxemic respiratory failure on MVS Severe sepsis with Shock. Bilateral Pneumonia. PUI coronavirus-19 infection. Acute possibly on chronic encephalopathy. Oropharyngeal dysphagia. Anemia. Decubitus ulcers Diabetes type 2. Hypertension. Leukocytosis. Anemia that is microcytic. Elevated serum transaminases. [id number] metabolic acidosis. Lactic acidosis. Severe protein-calorie malnutrition - repeat COVID-19 testing next week / in 7 days - surgery evaluation ongoing for tracheostomy placement (await negative COVID test) - continue care as below otherwise - continue fentanyl gtt for pain control / sedation - continue to wean supplemental oxygen for target O2 sat's > 90% acutely - continue daily SAT's and SBT assessment as tolerated - VAP bundle addressed - continue lung protective strategies - continue bronchodilators with pulmonary hygiene per RT - wean per pulmonary driven protocols otherwise - prn Levophed for target MAP > 65 mmHg - continue airborne and contact COVID-19 precautions - COVID-19 test positive - complete anti-infectives and de-escalate per ID recommendations - continue wound care per WCT - sedation prn for target RASS 0 to -1 - accuchecks with glycemic control per SSI (While critically ill target blood glucose of 140-180 mg/dL; avoid hypoglycemia) - to avoid benzodiazepine's, reduce the possibility of delirium - prn analgesia per CPOT score - Maintenance of sleep-wake cycle, avoid delirium - continue enteral nutritional support at goal rate as tolerated - G.I. & VTE prophylaxis - PT/OT/ROM exercises - continue mobility protocols for pressure ulcer prophylaxis - Monitor hemodynamics closely - continue other care per attending / other consultants - discharge planning ongoing concurrently .... Re-evaluate in am & prn CONDITION: CRITICAL PROGNOSIS: GUARDED CODE STATUS: FULL CODE The high probability of a clinically significant, sudden or life-threatening deterioration of the [respiratory & cardiovascular] system(s) required my full and direct attention, intervention and personal management. The aggregate critical care time was [31] minutes without overlap. Time includes spent on; [x] Data Review and interpretation [x] Patient assessment and monitoring of vital signs [x] Documentation [x] Medication orders and management Subjective Date of service: 08/01/19 Principal diagnosis: Bilateral pneumonia, severe sepsis with septic shock, encephalopathy Interval history: Patient is seen today for: Ac hypoxemic Resp failure on MVS; Severe sepsis with Shock; Ivan. Pneumonia; PUI coronavirus-19 infection. Seen and examined at bedside; 24hour events reviewed; nursing and respiratory care staff consulted; no adverse overnight events reported to me; resting in bed; remains on MVS; repeat COVID test positive; tenuously tolerating PSV trials and that at Psupp of 18-20 cm H2O Objective Vital Signs - 12hr 08/01/19 08/01/19 08/01/19 02:30 03:00 03:30 Temperature Pulse Rate 112 H 110 H 101 H Pulse Rate [ From Monitor] Pulse Rate [ Left Dorsalis Pedis] Pulse Rate [ Left Radial] Pulse Rate [ Right Dorsalis Pedis] Pulse Rate [ Right Radial] Respiratory 15 14 11 L Rate Blood Pressure 153/88 157/93 155/92 O2 Sat by Pulse 100 97 99 Oximetry 08/01/19 08/01/19 08/01/19 04:00 04:30 05:00 Temperature 98.5 F Pulse Rate 99 H 101 H 101 H Pulse Rate [ 106 H From Monitor] Pulse Rate [ 106 H Left Dorsalis Pedis] Pulse Rate [ 106 H Left Radial] Pulse Rate [ 106 H Right Dorsalis Pedis] Pulse Rate [ 106 H Right Radial] Respiratory 8 L 18 15 Rate Blood Pressure 141/87 140/88 134/79 O2 Sat by Pulse 98 98 95 Oximetry 08/01/19 08/01/19 08/01/19 05:24 05:30 06:00 Temperature Pulse Rate 108 H 108 H 97 H Pulse Rate [ From Monitor] Pulse Rate [ Left Dorsalis Pedis] Pulse Rate [ Left Radial] Pulse Rate [ Right Dorsalis Pedis] Pulse Rate [ Right Radial] Respiratory 10 L 13 Rate Blood Pressure 134/79 143/87 133/78 O2 Sat by Pulse 95 98 99 Oximetry 08/01/19 08/01/19 08/01/19 06:30 07:00 07:30 Temperature Pulse Rate 97 H 103 H 107 H Pulse Rate [ From Monitor] Pulse Rate [ Left Dorsalis Pedis] Pulse Rate [ Left Radial] Pulse Rate [ Right Dorsalis Pedis] Pulse Rate [ Right Radial] Respiratory 13 14 13 Rate Blood Pressure 138/80 121/78 115/69 O2 Sat by Pulse 99 97 97 Oximetry 08/01/19 08/01/19 08/01/19 08:00 08:25 08:30 Temperature 97.8 F Pulse Rate 108 H 116 H 109 H Pulse Rate [ 113 H From Monitor] Pulse Rate [ Left Dorsalis Pedis] Pulse Rate [ Left Radial] Pulse Rate [ Right Dorsalis Pedis] Pulse Rate [ Right Radial] Respiratory 14 20 20 Rate Blood Pressure 118/67 118/67 129/75 O2 Sat by Pulse 96 95 100 Oximetry 08/01/19 08/01/19 08/01/19 08:32 09:00 09:30 Temperature Pulse Rate 109 H 108 H 108 H Pulse Rate [ From Monitor] Pulse Rate [ Left Dorsalis Pedis] Pulse Rate [ Left Radial] Pulse Rate [ Right Dorsalis Pedis] Pulse Rate [ Right Radial] Respiratory 14 8 L Rate Blood Pressure 111/63 114/69 O2 Sat by Pulse 99 98 98 Oximetry 08/01/19 08/01/19 08/01/19 09:31 10:00 10:30 Temperature Pulse Rate 113 H 113 H 115 H Pulse Rate [ From Monitor] Pulse Rate [ Left Dorsalis Pedis] Pulse Rate [ Left Radial] Pulse Rate [ Right Dorsalis Pedis] Pulse Rate [ Right Radial] Respiratory 28 H 14 15 Rate Blood Pressure 114/69 115/67 133/75 O2 Sat by Pulse 93 97 96 Oximetry 08/01/19 08/01/19 08/01/19 11:00 11:30 11:42 Temperature Pulse Rate 114 H 115 H Pulse Rate [ 113 H From Monitor] Pulse Rate [ Left Dorsalis Pedis] Pulse Rate [ Left Radial] Pulse Rate [ Right Dorsalis Pedis] Pulse Rate [ Right Radial] Respiratory 16 18 18 Rate Blood Pressure 121/72 120/69 O2 Sat by Pulse 96 94 96 Oximetry 08/01/19 08/01/19 08/01/19 11:44 11:57 12:00 Temperature 97.6 F Pulse Rate 122 H 111 H 111 H Pulse Rate [ From Monitor] Pulse Rate [ Left Dorsalis Pedis] Pulse Rate [ Left Radial] Pulse Rate [ Right Dorsalis Pedis] Pulse Rate [ Right Radial] Respiratory 29 H 15 Rate Blood Pressure 125/73 125/73 O2 Sat by Pulse 96 96 Oximetry 08/01/19 08/01/19 08/01/19 12:30 13:00 13:30 Temperature Pulse Rate 111 H 109 H 111 H Pulse Rate [ From Monitor] Pulse Rate [ Left Dorsalis Pedis] Pulse Rate [ Left Radial] Pulse Rate [ Right Dorsalis Pedis] Pulse Rate [ Right Radial] Respiratory 15 12 14 Rate Blood Pressure 112/66 114/67 117/70 O2 Sat by Pulse 95 96 95 Oximetry Constitutional: appears uncomfortable, other (eelderly and chronically ill looking AAM, normocep[krystina;ic with mildly increased respiratory effort at rest) Eyes: non-icteric ENT: oropharynx moist, other (ETT 24 cm Pawan) Neck: supple, no lymphadenopathy, no JVD Effort: very labored Ascultation: Bilateral: diminished breath sounds, rhonchi Percussion: Bilateral: not dull Cardiovascular: regular rate and rhythm Gastrointestinal: normoactive bowel sounds, soft, non-tender, non-distended, other (+ PEG tube with mild TF leakage) Integumentary: decubitus ulcer Extremities: no cyanosis, no edema, pink and warm, pulses normal Neurologic: unable to assess Psychiatric: other (Unable to assess re: AMS) CBC and BMP: 08/04/19 05:38 08/04/19 05:38 ABG, PT/INR, D-dimer: ABG ABG pH 7.430 pH Units (7.350-7.450) 07/27/19 05:16 ABG pCO2 48.2 mm Hg 07/27/19 05:16 ABG pO2 63.4 mm Hg (80.0-90.0) L 07/27/19 05:16 ABG O2 Saturation 92.7 % (95.0-99.0) L 07/27/19 05:16 PT/INR, D-dimer PT 16.0 Sec. (12.2-14.9) H 07/03/19 22:20 INR 1.26 (0.87-1.13) H 07/03/19 22:20 D-Dimer 1142.18 ng/mlDDU (0-234) H 07/08/19 00:45 Abnormal lab findings: Abnormal Labs 07/03/19 07/03/19 07/03/19 19:57 21:10 21:13 WBC RBC Hgb Hct MCV MCH MCHC RDW Plt Count Lymph % (Auto) [place] % (Auto) Lymph # [place] # Baso # Seg Neutrophils % Seg Neuts % (Manual) Lymphocytes % (Manual) Monocytes % (Manual) Nucleated RBC % Seg Neutrophils # Seg Neutrophils # Man Lymphocytes # (Manual) Monocytes # (Manual) PT INR D-Dimer ABG pH 7.238 L ABG pO2 210.8 H ABG HCO3 15.4 L ABG O2 Saturation 99.2 H ABG Base Excess -11.1 L ABG Hemoglobin 8.0 L Oxyhemoglobin Sodium 124 L Potassium Chloride 92.9 L Carbon Dioxide 10 L BUN 23 H Creatinine 0.5 L Glucose 118 H POC Glucose Lactic Acid Calcium 7.0 L Magnesium Iron TIBC Ferritin AST 70 H ALT 88 H Lactate Dehydrogenase Troponin T 0.032 H C-Reactive Protein Total Protein 5.0 L Albumin 1.8 L Prealbumin Cholesterol 47 L LDL Cholesterol Direct 25 L HDL Cholesterol 20 L Urine WBC (Auto) 12.0 H Vancomycin Trough Coronavirus (PCR) Crossmatch 07/03/19 07/03/19 07/03/19 22:20 22:20 22:20 WBC 30.5 H RBC 2.96 L Hgb 7.7 L Hct 23.9 L MCV 81 L MCH 26 L MCHC RDW 18.6 H Plt Count 459 H Lymph % (Auto) [place] % (Auto) Lymph # [place] # Baso # Seg Neutrophils % Seg Neuts % (Manual) 93.0 H Lymphocytes % (Manual) 0.5 L Monocytes % (Manual) Nucleated RBC % Seg Neutrophils # Seg Neutrophils # Man 28.4 H Lymphocytes # (Manual) 0.2 L Monocytes # (Manual) PT 16.0 H INR 1.26 H D-Dimer ABG pH ABG pO2 ABG HCO3 ABG O2 Saturation ABG Base Excess ABG Hemoglobin Oxyhemoglobin Sodium Potassium Chloride Carbon Dioxide BUN Creatinine Glucose POC Glucose Lactic Acid 6.90 H* Calcium Magnesium Iron TIBC Ferritin AST ALT Lactate Dehydrogenase Troponin T C-Reactive Protein Total Protein Albumin Prealbumin Cholesterol LDL Cholesterol Direct HDL Cholesterol Urine WBC (Auto) Vancomycin Trough Coronavirus (PCR) Crossmatch 07/03/19 07/04/19 07/04/19 23:58 05:15 07:05 WBC 17.1 H RBC 3.22 L Hgb 8.3 L Hct 25.4 L MCV 79 L MCH 26 L MCHC RDW 18.6 H Plt Count Lymph % (Auto) [place] % (Auto) Lymph # [place] # Baso # Seg Neutrophils % Seg Neuts % (Manual) 74.0 H Lymphocytes % (Manual) 0 L Monocytes % (Manual) Nucleated RBC % Seg Neutrophils # Seg Neutrophils # Man 12.7 H Lymphocytes # (Manual) 0.0 L Monocytes # (Manual) PT INR D-Dimer ABG pH 7.310 L ABG pO2 73.2 L ABG HCO3 17.8 L ABG O2 Saturation 93.8 L ABG Base Excess -7.7 L ABG Hemoglobin 9.6 L Oxyhemoglobin 92.3 L Sodium Potassium Chloride Carbon Dioxide BUN Creatinine Glucose POC Glucose Lactic Acid 7.10 H* Calcium Magnesium Iron TIBC Ferritin AST ALT Lactate Dehydrogenase Troponin T C-Reactive Protein Total Protein Albumin Prealbumin Cholesterol LDL Cholesterol Direct HDL Cholesterol Urine WBC (Auto) Vancomycin Trough Coronavirus (PCR) Crossmatch 07/04/19 07/04/19 07/04/19 07:05 07:05 07:05 WBC RBC Hgb Hct MCV MCH MCHC RDW Plt Count Lymph % (Auto) [place] % (Auto) Lymph # [place] # Baso # Seg Neutrophils % Seg Neuts % (Manual) Lymphocytes % (Manual) Monocytes % (Manual) Nucleated RBC % Seg Neutrophils # Seg Neutrophils # Man Lymphocytes # (Manual) Monocytes # (Manual) PT INR D-Dimer ABG pH ABG pO2 ABG HCO3 ABG O2 Saturation ABG Base Excess ABG Hemoglobin Oxyhemoglobin Sodium 120 L Potassium 5.1 H Chloride 90.0 L Carbon Dioxide 14 L BUN 26 H Creatinine 0.5 L Glucose POC Glucose Lactic Acid 3.30 H* Calcium 8.0 L Magnesium Iron 9 L TIBC 97 L Ferritin AST 73 H ALT 91 H Lactate Dehydrogenase Troponin T C-Reactive Protein Total Protein 5.5 L Albumin 2.0 L Prealbumin Cholesterol LDL Cholesterol Direct HDL Cholesterol Urine WBC (Auto) Vancomycin Trough Coronavirus (PCR) Crossmatch 07/04/19 07/04/19 07/04/19 09:39 09:39 09:39 WBC RBC Hgb Hct MCV MCH MCHC RDW Plt Count Lymph % (Auto) [place] % (Auto) Lymph # [place] # Baso # Seg Neutrophils % Seg Neuts % (Manual) Lymphocytes % (Manual) Monocytes % (Manual) Nucleated RBC % Seg Neutrophils # Seg Neutrophils # Man Lymphocytes # (Manual) Monocytes # (Manual) PT INR D-Dimer 1419.14 H ABG pH ABG pO2 ABG HCO3 ABG O2 Saturation ABG Base Excess ABG Hemoglobin Oxyhemoglobin Sodium Potassium Chloride Carbon Dioxide BUN Creatinine Glucose POC Glucose Lactic Acid Calcium Magnesium Iron TIBC Ferritin 1719.0 H AST ALT Lactate Dehydrogenase 234 H Troponin T C-Reactive Protein 15.50 H Total Protein Albumin Prealbumin Cholesterol LDL Cholesterol Direct HDL Cholesterol Urine WBC (Auto) Vancomycin Trough Coronavirus (PCR) Crossmatch 07/04/19 07/04/19 07/04/19 10:09 18:08 18:28 WBC RBC Hgb Hct MCV MCH MCHC RDW Plt Count Lymph % (Auto) [place] % (Auto) Lymph # [place] # Baso # Seg Neutrophils % Seg Neuts % (Manual) Lymphocytes % (Manual) Monocytes % (Manual) Nucleated RBC % Seg Neutrophils # Seg Neutrophils # Man Lymphocytes # (Manual) Monocytes # (Manual) PT INR D-Dimer ABG pH ABG pO2 ABG HCO3 ABG O2 Saturation ABG Base Excess ABG Hemoglobin Oxyhemoglobin Sodium 117 L* Potassium 5.6 H Chloride 90.3 L Carbon Dioxide 16 L BUN 28 H Creatinine 0.5 L Glucose 58 L POC Glucose 65 L Lactic Acid Calcium 8.2 L Magnesium Iron TIBC Ferritin AST ALT Lactate Dehydrogenase Troponin T C-Reactive Protein Total Protein Albumin Prealbumin Cholesterol LDL Cholesterol Direct HDL Cholesterol Urine WBC (Auto) Vancomycin Trough Coronavirus (PCR) Positive A Crossmatch 07/04/19 07/04/19 07/04/19 23:45 Unknown Unknown WBC RBC Hgb Hct MCV MCH MCHC RDW Plt Count Lymph % (Auto) [place] % (Auto) Lymph # [place] # Baso # Seg Neutrophils % Seg Neuts % (Manual) Lymphocytes % (Manual) Monocytes % (Manual) Nucleated RBC % Seg Neutrophils # Seg Neutrophils # Man Lymphocytes # (Manual) Monocytes # (Manual) PT INR D-Dimer 759.77 H ABG pH ABG pO2 ABG HCO3 ABG O2 Saturation ABG Base Excess ABG Hemoglobin Oxyhemoglobin Sodium 122 L Potassium Chloride 93.0 L Carbon Dioxide 19 L BUN 27 H Creatinine 0.5 L Glucose POC Glucose Lactic Acid Calcium 8.3 L Magnesium Iron TIBC Ferritin 1301.0 H AST ALT Lactate Dehydrogenase Troponin T C-Reactive Protein Total Protein Albumin Prealbumin Cholesterol LDL Cholesterol Direct HDL Cholesterol Urine WBC (Auto) Vancomycin Trough Coronavirus (PCR) Crossmatch 07/04/19 07/05/19 07/05/19 Unknown 03:20 04:00 WBC RBC Hgb Hct MCV MCH MCHC RDW Plt Count Lymph % (Auto) [place] % (Auto) Lymph # [place] # Baso # Seg Neutrophils % Seg Neuts % (Manual) Lymphocytes % (Manual) Monocytes % (Manual) Nucleated RBC % Seg Neutrophils # Seg Neutrophils # Man Lymphocytes # (Manual) Monocytes # (Manual) PT INR D-Dimer ABG pH ABG pO2 60.6 L ABG HCO3 ABG O2 Saturation 93.5 L ABG Base Excess -2.4 L ABG Hemoglobin 6.9 L Oxyhemoglobin 92.0 L Sodium 125 L Potassium Chloride 92.6 L Carbon Dioxide 19 L BUN 24 H Creatinine 0.6 L Glucose POC Glucose Lactic Acid Calcium 8.2 L Magnesium 1.40 L Iron TIBC Ferritin AST ALT Lactate Dehydrogenase 242 H Troponin T C-Reactive Protein 16.70 H Total Protein Albumin Prealbumin Cholesterol LDL Cholesterol Direct HDL Cholesterol Urine WBC (Auto) Vancomycin Trough Coronavirus (PCR) Crossmatch 07/05/19 07/05/19 07/05/19 10:11 16:15 17:54 WBC 46.4 H* RBC 2.77 L Hgb 7.2 L Hct 21.9 L MCV 79 L MCH 26 L MCHC RDW 19.0 H Plt Count Lymph % (Auto) [place] % (Auto) Lymph # [place] # Baso # Seg Neutrophils % Seg Neuts % (Manual) 82.0 H Lymphocytes % (Manual) 1.0 L Monocytes % (Manual) Nucleated RBC % Seg Neutrophils # Seg Neutrophils # Man 38.0 H Lymphocytes # (Manual) 0.5 L Monocytes # (Manual) PT INR D-Dimer ABG pH ABG pO2 ABG HCO3 ABG O2 Saturation ABG Base Excess ABG Hemoglobin Oxyhemoglobin Sodium Potassium Chloride Carbon Dioxide BUN Creatinine Glucose POC Glucose 69 L Lactic Acid Calcium Magnesium Iron TIBC Ferritin AST ALT Lactate Dehydrogenase Troponin T C-Reactive Protein Total Protein Albumin Prealbumin Cholesterol LDL Cholesterol Direct HDL Cholesterol Urine WBC (Auto) Vancomycin Trough 23.2 H Coronavirus (PCR) Crossmatch 07/05/19 07/06/19 07/06/19 19:58 00:27 00:27 WBC RBC Hgb Hct MCV MCH MCHC RDW Plt Count Lymph % (Auto) [place] % (Auto) Lymph # [place] # Baso # Seg Neutrophils % Seg Neuts % (Manual) Lymphocytes % (Manual) Monocytes % (Manual) Nucleated RBC % Seg Neutrophils # Seg Neutrophils # Man Lymphocytes # (Manual) Monocytes # (Manual) PT INR D-Dimer 1333.22 H ABG pH ABG pO2 ABG HCO3 ABG O2 Saturation ABG Base Excess ABG Hemoglobin Oxyhemoglobin Sodium 127 L Potassium Chloride Carbon Dioxide BUN Creatinine Glucose POC Glucose Lactic Acid Calcium Magnesium Iron TIBC Ferritin 977.1 H AST ALT Lactate Dehydrogenase Troponin T C-Reactive Protein Total Protein Albumin Prealbumin Cholesterol LDL Cholesterol Direct HDL Cholesterol Urine WBC (Auto) Vancomycin Trough Coronavirus (PCR) Crossmatch 07/06/19 07/06/19 07/06/19 00:27 02:00 02:56 WBC RBC Hgb Hct MCV MCH MCHC RDW Plt Count Lymph % (Auto) [place] % (Auto) Lymph # [place] # Baso # Seg Neutrophils % Seg Neuts % (Manual) Lymphocytes % (Manual) Monocytes % (Manual) Nucleated RBC % Seg Neutrophils # Seg Neutrophils # Man Lymphocytes # (Manual) Monocytes # (Manual) PT INR D-Dimer ABG pH ABG pO2 70.3 L ABG HCO3 ABG O2 Saturation 94.8 L ABG Base Excess ABG Hemoglobin 8.0 L Oxyhemoglobin 93.2 L Sodium Potassium Chloride Carbon Dioxide BUN Creatinine Glucose POC Glucose 117 H Lactic Acid Calcium Magnesium Iron TIBC Ferritin AST ALT Lactate Dehydrogenase 236 H Troponin T C-Reactive Protein 22.90 H Total Protein Albumin Prealbumin Cholesterol LDL Cholesterol Direct HDL Cholesterol Urine WBC (Auto) Vancomycin Trough Coronavirus (PCR) Crossmatch 07/06/19 07/06/19 07/06/19 03:49 03:49 07:40 WBC 38.8 H RBC 2.51 L Hgb 6.7 L Hct 19.9 L* MCV 79 L MCH 27 L MCHC RDW 19.2 H Plt Count Lymph % (Auto) [place] % (Auto) Lymph # [place] # Baso # Seg Neutrophils % Seg Neuts % (Manual) 90.5 H Lymphocytes % (Manual) 1.0 L Monocytes % (Manual) Nucleated RBC % Seg Neutrophils # Seg Neutrophils # Man 35.1 H Lymphocytes # (Manual) 0.4 L Monocytes # (Manual) PT INR D-Dimer ABG pH ABG pO2 ABG HCO3 ABG O2 Saturation ABG Base Excess ABG Hemoglobin Oxyhemoglobin Sodium 131 L Potassium Chloride 96.9 L Carbon Dioxide 18 L BUN 23 H Creatinine 0.5 L Glucose POC Glucose Lactic Acid Calcium 8.0 L Magnesium Iron TIBC Ferritin AST ALT Lactate Dehydrogenase Troponin T C-Reactive Protein Total Protein Albumin Prealbumin Cholesterol LDL Cholesterol Direct HDL Cholesterol Urine WBC (Auto) Vancomycin Trough Coronavirus (PCR) Crossmatch See Detail 07/06/19 07/06/19 07/06/19 12:38 14:39 20:00 WBC RBC Hgb Hct MCV MCH MCHC RDW Plt Count Lymph % (Auto) [place] % (Auto) Lymph # [place] # Baso # Seg Neutrophils % Seg Neuts % (Manual) Lymphocytes % (Manual) Monocytes % (Manual) Nucleated RBC % Seg Neutrophils # Seg Neutrophils # Man Lymphocytes # (Manual) Monocytes # (Manual) PT INR D-Dimer ABG pH ABG pO2 ABG HCO3 ABG O2 Saturation ABG Base Excess ABG Hemoglobin Oxyhemoglobin Sodium Potassium Chloride Carbon Dioxide BUN Creatinine Glucose POC Glucose 112 H 111 H 140 H Lactic Acid Calcium Magnesium Iron TIBC Ferritin AST ALT Lactate Dehydrogenase Troponin T C-Reactive Protein Total Protein Albumin Prealbumin Cholesterol LDL Cholesterol Direct HDL Cholesterol Urine WBC (Auto) Vancomycin Trough Coronavirus (PCR) Crossmatch 07/06/19 07/06/19 07/07/19 22:43 22:56 02:20 WBC RBC Hgb 7.9 L Hct 23.1 L MCV MCH MCHC RDW Plt Count Lymph % (Auto) [place] % (Auto) Lymph # [place] # Baso # Seg Neutrophils % Seg Neuts % (Manual) Lymphocytes % (Manual) Monocytes % (Manual) Nucleated RBC % Seg Neutrophils # Seg Neutrophils # Man Lymphocytes # (Manual) Monocytes # (Manual) PT INR D-Dimer ABG pH ABG pO2 ABG HCO3 ABG O2 Saturation ABG Base Excess ABG Hemoglobin Oxyhemoglobin Sodium Potassium Chloride Carbon Dioxide BUN Creatinine Glucose POC Glucose 122 H 149 H Lactic Acid Calcium Magnesium Iron TIBC Ferritin AST ALT Lactate Dehydrogenase Troponin T C-Reactive Protein Total Protein Albumin Prealbumin Cholesterol LDL Cholesterol Direct HDL Cholesterol Urine WBC (Auto) Vancomycin Trough Coronavirus (PCR) Crossmatch 07/07/19 07/07/19 07/07/19 04:35 05:27 05:34 WBC 23.1 H RBC 3.00 L Hgb 8.1 L Hct 24.2 L MCV 81 L MCH 27 L MCHC RDW 20.6 H Plt Count Lymph % (Auto) [place] % (Auto) Lymph # [place] # Baso # Seg Neutrophils % Seg Neuts % (Manual) 90.0 H Lymphocytes % (Manual) 2.0 L Monocytes % (Manual) Nucleated RBC % Seg Neutrophils # Seg Neutrophils # Man 20.8 H Lymphocytes # (Manual) 0.5 L Monocytes # (Manual) PT INR D-Dimer ABG pH ABG pO2 65.8 L ABG HCO3 ABG O2 Saturation 92.2 L ABG Base Excess ABG Hemoglobin 8.3 L Oxyhemoglobin 90.6 L Sodium Potassium Chloride Carbon Dioxide BUN Creatinine Glucose POC Glucose 132 H Lactic Acid Calcium Magnesium Iron TIBC Ferritin AST ALT Lactate Dehydrogenase Troponin T C-Reactive Protein Total Protein Albumin Prealbumin Cholesterol LDL Cholesterol Direct HDL Cholesterol Urine WBC (Auto) Vancomycin Trough Coronavirus (PCR) Crossmatch 07/07/19 07/07/19 07/07/19 05:34 11:50 15:58 WBC RBC Hgb 8.1 L Hct 24.2 L MCV MCH MCHC RDW Plt Count Lymph % (Auto) [place] % (Auto) Lymph # [place] # Baso # Seg Neutrophils % Seg Neuts % (Manual) Lymphocytes % (Manual) Monocytes % (Manual) Nucleated RBC % Seg Neutrophils # Seg Neutrophils # Man Lymphocytes # (Manual) Monocytes # (Manual) PT INR D-Dimer ABG pH ABG pO2 ABG HCO3 ABG O2 Saturation ABG Base Excess ABG Hemoglobin Oxyhemoglobin Sodium 135 L Potassium 3.3 L Chloride Carbon Dioxide 20 L BUN 27 H Creatinine 0.6 L Glucose 121 H POC Glucose 123 H Lactic Acid Calcium 8.0 L Magnesium Iron TIBC Ferritin AST ALT Lactate Dehydrogenase Troponin T C-Reactive Protein Total Protein Albumin Prealbumin Cholesterol LDL Cholesterol Direct HDL Cholesterol Urine WBC (Auto) Vancomycin Trough Coronavirus (PCR) Crossmatch 07/07/19 07/07/19 07/07/19 17:42 22:00 23:53 WBC RBC Hgb 8.0 L Hct 23.4 L MCV MCH MCHC RDW Plt Count Lymph % (Auto) [place] % (Auto) Lymph # [place] # Baso # Seg Neutrophils % Seg Neuts % (Manual) Lymphocytes % (Manual) Monocytes % (Manual) Nucleated RBC % Seg Neutrophils # Seg Neutrophils # Man Lymphocytes # (Manual) Monocytes # (Manual) PT INR D-Dimer ABG pH ABG pO2 ABG HCO3 ABG O2 Saturation ABG Base Excess ABG Hemoglobin Oxyhemoglobin Sodium Potassium Chloride Carbon Dioxide BUN Creatinine Glucose POC Glucose 107 H 117 H Lactic Acid Calcium Magnesium Iron TIBC Ferritin AST ALT Lactate Dehydrogenase Troponin T C-Reactive Protein Total Protein Albumin Prealbumin Cholesterol LDL Cholesterol Direct HDL Cholesterol Urine WBC (Auto) Vancomycin Trough Coronavirus (PCR) Crossmatch 07/08/19 07/08/19 07/08/19 00:45 00:45 00:45 WBC RBC Hgb Hct MCV MCH MCHC RDW Plt Count Lymph % (Auto) [place] % (Auto) Lymph # [place] # Baso # Seg Neutrophils % Seg Neuts % (Manual) Lymphocytes % (Manual) Monocytes % (Manual) Nucleated RBC % Seg Neutrophils # Seg Neutrophils # Man Lymphocytes # (Manual) Monocytes # (Manual) PT INR D-Dimer 1142.18 H ABG pH ABG pO2 ABG HCO3 ABG O2 Saturation ABG Base Excess ABG Hemoglobin Oxyhemoglobin Sodium Potassium Chloride Carbon Dioxide BUN Creatinine Glucose POC Glucose Lactic Acid Calcium Magnesium Iron TIBC Ferritin 839.0 H AST ALT Lactate Dehydrogenase 253 H Troponin T C-Reactive Protein 18.90 H Total Protein Albumin Prealbumin Cholesterol LDL Cholesterol Direct HDL Cholesterol Urine WBC (Auto) Vancomycin Trough Coronavirus (PCR) Crossmatch 07/08/19 07/08/19 07/08/19 04:30 05:11 12:02 WBC RBC Hgb Hct MCV MCH MCHC RDW Plt Count Lymph % (Auto) [place] % (Auto) Lymph # [place] # Baso # Seg Neutrophils % Seg Neuts % (Manual) Lymphocytes % (Manual) Monocytes % (Manual) Nucleated RBC % Seg Neutrophils # Seg Neutrophils # Man Lymphocytes # (Manual) Monocytes # (Manual) PT INR D-Dimer ABG pH ABG pO2 66.0 L ABG HCO3 ABG O2 Saturation 92.3 L ABG Base Excess ABG Hemoglobin 7.7 L Oxyhemoglobin 90.7 L Sodium Potassium Chloride Carbon Dioxide BUN Creatinine Glucose POC Glucose 108 H 153 H Lactic Acid Calcium Magnesium Iron TIBC Ferritin AST ALT Lactate Dehydrogenase Troponin T C-Reactive Protein Total Protein Albumin Prealbumin Cholesterol LDL Cholesterol Direct HDL Cholesterol Urine WBC (Auto) Vancomycin Trough Coronavirus (PCR) Crossmatch 07/08/19 07/08/19 07/08/19 16:15 18:22 23:35 WBC RBC Hgb Hct MCV MCH MCHC RDW Plt Count Lymph % (Auto) [place] % (Auto) Lymph # [place] # Baso # Seg Neutrophils % Seg Neuts % (Manual) Lymphocytes % (Manual) Monocytes % (Manual) Nucleated RBC % Seg Neutrophils # Seg Neutrophils # Man Lymphocytes # (Manual) Monocytes # (Manual) PT INR D-Dimer ABG pH ABG pO2 ABG HCO3 ABG O2 Saturation ABG Base Excess ABG Hemoglobin Oxyhemoglobin Sodium 134 L Potassium 3.3 L Chloride Carbon Dioxide 21 L BUN 27 H Creatinine 0.6 L Glucose 146 H POC Glucose 134 H 133 H Lactic Acid Calcium Magnesium Iron TIBC Ferritin AST ALT Lactate Dehydrogenase Troponin T C-Reactive Protein Total Protein Albumin Prealbumin Cholesterol LDL Cholesterol Direct HDL Cholesterol Urine WBC (Auto) Vancomycin Trough Coronavirus (PCR) Crossmatch 07/09/19 07/09/19 07/09/19 04:30 04:30 05:00 WBC 18.9 H RBC 2.77 L Hgb 7.4 L Hct 22.8 L MCV 82 L MCH 27 L MCHC RDW 20.9 H Plt Count 130 L Lymph % (Auto) [place] % (Auto) Lymph # [place] # Baso # Seg Neutrophils % Seg Neuts % (Manual) 84.0 H Lymphocytes % (Manual) 0 L Monocytes % (Manual) Nucleated RBC % Seg Neutrophils # Seg Neutrophils # Man 15.9 H Lymphocytes # (Manual) 0.0 L Monocytes # (Manual) PT INR D-Dimer ABG pH ABG pO2 ABG HCO3 ABG O2 Saturation ABG Base Excess ABG Hemoglobin Oxyhemoglobin Sodium Potassium 3.1 L Chloride Carbon Dioxide BUN 26 H Creatinine 0.5 L Glucose 125 H POC Glucose 155 H Lactic Acid Calcium Magnesium Iron TIBC Ferritin AST ALT Lactate Dehydrogenase Troponin T C-Reactive Protein Total Protein Albumin Prealbumin Cholesterol LDL Cholesterol Direct HDL Cholesterol Urine WBC (Auto) Vancomycin Trough Coronavirus (PCR) Crossmatch 07/09/19 07/09/19 07/09/19 05:55 12:22 17:50 WBC RBC Hgb Hct MCV MCH MCHC RDW Plt Count Lymph % (Auto) [place] % (Auto) Lymph # [place] # Baso # Seg Neutrophils % Seg Neuts % (Manual) Lymphocytes % (Manual) Monocytes % (Manual) Nucleated RBC % Seg Neutrophils # Seg Neutrophils # Man Lymphocytes # (Manual) Monocytes # (Manual) PT INR D-Dimer ABG pH ABG pO2 62.8 L ABG HCO3 ABG O2 Saturation ABG Base Excess ABG Hemoglobin 6.1 L Oxyhemoglobin 93.9 L Sodium Potassium Chloride Carbon Dioxide BUN Creatinine Glucose POC Glucose 115 H 133 H Lactic Acid Calcium Magnesium Iron TIBC Ferritin AST ALT Lactate Dehydrogenase Troponin T C-Reactive Protein Total Protein Albumin Prealbumin Cholesterol LDL Cholesterol Direct HDL Cholesterol Urine WBC (Auto) Vancomycin Trough Coronavirus (PCR) Crossmatch 07/10/19 07/10/19 07/10/19 00:38 04:00 04:00 WBC RBC Hgb Hct MCV MCH MCHC RDW Plt Count Lymph % (Auto) [place] % (Auto) Lymph # [place] # Baso # Seg Neutrophils % Seg Neuts % (Manual) Lymphocytes % (Manual) Monocytes % (Manual) Nucleated RBC % Seg Neutrophils # Seg Neutrophils # Man Lymphocytes # (Manual) Monocytes # (Manual) PT INR D-Dimer ABG pH ABG pO2 ABG HCO3 ABG O2 Saturation ABG Base Excess ABG Hemoglobin Oxyhemoglobin Sodium Potassium Chloride 107.9 H Carbon Dioxide BUN 26 H Creatinine 0.4 L Glucose 137 H POC Glucose 122 H Lactic Acid Calcium Magnesium 1.50 L Iron TIBC Ferritin AST ALT Lactate Dehydrogenase 277 H Troponin T C-Reactive Protein 15.10 H Total Protein Albumin Prealbumin Cholesterol LDL Cholesterol Direct HDL Cholesterol Urine WBC (Auto) Vancomycin Trough Coronavirus (PCR) Crossmatch 07/10/19 07/10/19 07/10/19 04:07 05:21 17:25 WBC RBC Hgb Hct MCV MCH MCHC RDW Plt Count Lymph % (Auto) [place] % (Auto) Lymph # [place] # Baso # Seg Neutrophils % Seg Neuts % (Manual) Lymphocytes % (Manual) Monocytes % (Manual) Nucleated RBC % Seg Neutrophils # Seg Neutrophils # Man Lymphocytes # (Manual) Monocytes # (Manual) PT INR D-Dimer ABG pH ABG pO2 65.6 L ABG HCO3 26.3 H ABG O2 Saturation ABG Base Excess ABG Hemoglobin 6.7 L Oxyhemoglobin Sodium Potassium Chloride Carbon Dioxide BUN Creatinine Glucose POC Glucose 144 H 113 H Lactic Acid Calcium Magnesium Iron TIBC Ferritin AST ALT Lactate Dehydrogenase Troponin T C-Reactive Protein Total Protein Albumin Prealbumin Cholesterol LDL Cholesterol Direct HDL Cholesterol Urine WBC (Auto) Vancomycin Trough Coronavirus (PCR) Crossmatch 07/11/19 07/11/19 07/11/19 00:07 05:14 05:25 WBC RBC Hgb Hct MCV MCH MCHC RDW Plt Count Lymph % (Auto) [place] % (Auto) Lymph # [place] # Baso # Seg Neutrophils % Seg Neuts % (Manual) Lymphocytes % (Manual) Monocytes % (Manual) Nucleated RBC % Seg Neutrophils # Seg Neutrophils # Man Lymphocytes # (Manual) Monocytes # (Manual) PT INR D-Dimer ABG pH ABG pO2 ABG HCO3 ABG O2 Saturation ABG Base Excess ABG Hemoglobin 5.8 L Oxyhemoglobin Sodium Potassium Chloride 108.0 H Carbon Dioxide BUN 26 H Creatinine 0.4 L Glucose 110 H POC Glucose 121 H Lactic Acid Calcium Magnesium Iron TIBC Ferritin AST ALT Lactate Dehydrogenase Troponin T C-Reactive Protein Total Protein Albumin Prealbumin Cholesterol LDL Cholesterol Direct HDL Cholesterol Urine WBC (Auto) Vancomycin Trough Coronavirus (PCR) Crossmatch 07/11/19 07/11/19 07/11/19 12:27 18:00 23:42 WBC RBC Hgb Hct MCV MCH MCHC RDW Plt Count Lymph % (Auto) [place] % (Auto) Lymph # [place] # Baso # Seg Neutrophils % Seg Neuts % (Manual) Lymphocytes % (Manual) Monocytes % (Manual) Nucleated RBC % Seg Neutrophils # Seg Neutrophils # Man Lymphocytes # (Manual) Monocytes # (Manual) PT INR D-Dimer ABG pH ABG pO2 ABG HCO3 ABG O2 Saturation ABG Base Excess ABG Hemoglobin Oxyhemoglobin Sodium Potassium Chloride Carbon Dioxide BUN Creatinine Glucose POC Glucose 158 H 141 H 142 H Lactic Acid Calcium Magnesium Iron TIBC Ferritin AST ALT Lactate Dehydrogenase Troponin T C-Reactive Protein Total Protein Albumin Prealbumin Cholesterol LDL Cholesterol Direct HDL Cholesterol Urine WBC (Auto) Vancomycin Trough Coronavirus (PCR) Crossmatch 07/12/19 07/12/19 07/12/19 04:46 04:46 05:23 WBC 23.6 H RBC 2.51 L Hgb 6.7 L Hct 20.8 L MCV 83 L MCH 27 L MCHC RDW 20.3 H Plt Count Lymph % (Auto) [place] % (Auto) Lymph # [place] # Baso # Seg Neutrophils % Seg Neuts % (Manual) 94.0 H Lymphocytes % (Manual) 4.0 L Monocytes % (Manual) Nucleated RBC % Seg Neutrophils # Seg Neutrophils # Man 22.2 H Lymphocytes # (Manual) 0.9 L Monocytes # (Manual) PT INR D-Dimer ABG pH ABG pO2 ABG HCO3 ABG O2 Saturation ABG Base Excess ABG Hemoglobin Oxyhemoglobin Sodium Potassium Chloride 107.1 H Carbon Dioxide BUN 25 H Creatinine 0.4 L Glucose 122 H POC Glucose 118 H Lactic Acid Calcium Magnesium Iron TIBC Ferritin AST ALT Lactate Dehydrogenase Troponin T C-Reactive Protein Total Protein Albumin Prealbumin Cholesterol LDL Cholesterol Direct HDL Cholesterol Urine WBC (Auto) Vancomycin Trough Coronavirus (PCR) Crossmatch 07/12/19 07/12/19 07/12/19 08:49 11:36 18:15 WBC RBC Hgb Hct MCV MCH MCHC RDW Plt Count Lymph % (Auto) [place] % (Auto) Lymph # [place] # Baso # Seg Neutrophils % Seg Neuts % (Manual) Lymphocytes % (Manual) Monocytes % (Manual) Nucleated RBC % Seg Neutrophils # Seg Neutrophils # Man Lymphocytes # (Manual) Monocytes # (Manual) PT INR D-Dimer ABG pH ABG pO2 ABG HCO3 ABG O2 Saturation ABG Base Excess ABG Hemoglobin Oxyhemoglobin Sodium Potassium Chloride Carbon Dioxide BUN Creatinine Glucose POC Glucose 124 H 110 H Lactic Acid Calcium Magnesium Iron TIBC Ferritin AST ALT Lactate Dehydrogenase Troponin T C-Reactive Protein Total Protein Albumin Prealbumin Cholesterol LDL Cholesterol Direct HDL Cholesterol Urine WBC (Auto) Vancomycin Trough Coronavirus (PCR) Crossmatch See Detail 07/12/19 07/13/19 07/13/19 23:16 05:26 06:50 WBC 23.9 H RBC 2.58 L Hgb 6.9 L Hct 21.5 L MCV 83 L MCH 27 L MCHC RDW 19.0 H Plt Count Lymph % (Auto) [place] % (Auto) Lymph # [place] # Baso # Seg Neutrophils % Seg Neuts % (Manual) 96.0 H Lymphocytes % (Manual) 3.0 L Monocytes % (Manual) Nucleated RBC % Seg Neutrophils # Seg Neutrophils # Man 22.9 H Lymphocytes # (Manual) 0.7 L Monocytes # (Manual) PT INR D-Dimer ABG pH ABG pO2 ABG HCO3 ABG O2 Saturation ABG Base Excess ABG Hemoglobin Oxyhemoglobin Sodium Potassium Chloride Carbon Dioxide BUN Creatinine Glucose POC Glucose 108 H 126 H Lactic Acid Calcium Magnesium Iron TIBC Ferritin AST ALT Lactate Dehydrogenase Troponin T C-Reactive Protein Total Protein Albumin Prealbumin Cholesterol LDL Cholesterol Direct HDL Cholesterol Urine WBC (Auto) Vancomycin Trough Coronavirus (PCR) Crossmatch 07/13/19 07/13/19 07/13/19 06:50 12:38 18:05 WBC RBC Hgb Hct MCV MCH MCHC RDW Plt Count Lymph % (Auto) [place] % (Auto) Lymph # [place] # Baso # Seg Neutrophils % Seg Neuts % (Manual) Lymphocytes % (Manual) Monocytes % (Manual) Nucleated RBC % Seg Neutrophils # Seg Neutrophils # Man Lymphocytes # (Manual) Monocytes # (Manual) PT INR D-Dimer ABG pH ABG pO2 ABG HCO3 ABG O2 Saturation ABG Base Excess ABG Hemoglobin Oxyhemoglobin Sodium Potassium Chloride Carbon Dioxide BUN 33 H Creatinine 0.5 L Glucose 136 H POC Glucose 164 H 145 H Lactic Acid Calcium Magnesium Iron TIBC Ferritin AST ALT Lactate Dehydrogenase Troponin T C-Reactive Protein Total Protein Albumin Prealbumin Cholesterol LDL Cholesterol Direct HDL Cholesterol Urine WBC (Auto) Vancomycin Trough Coronavirus (PCR) Crossmatch 07/13/19 07/14/19 07/14/19 18:30 00:21 04:40 WBC 22.9 H RBC 2.45 L Hgb 6.6 L Hct 21.1 L MCV MCH 27 L MCHC 31 L RDW 19.2 H Plt Count Lymph % (Auto) [place] % (Auto) Lymph # [place] # Baso # Seg Neutrophils % Seg Neuts % (Manual) 91.0 H Lymphocytes % (Manual) 7.0 L Monocytes % (Manual) Nucleated RBC % Seg Neutrophils # Seg Neutrophils # Man 20.8 H Lymphocytes # (Manual) Monocytes # (Manual) PT INR D-Dimer ABG pH ABG pO2 58.1 L ABG HCO3 ABG O2 Saturation 88.7 L ABG Base Excess ABG Hemoglobin 7.8 L Oxyhemoglobin 86.8 L Sodium Potassium Chloride Carbon Dioxide BUN Creatinine Glucose POC Glucose 118 H Lactic Acid Calcium Magnesium Iron TIBC Ferritin AST ALT Lactate Dehydrogenase Troponin T C-Reactive Protein Total Protein Albumin Prealbumin Cholesterol LDL Cholesterol Direct HDL Cholesterol Urine WBC (Auto) Vancomycin Trough Coronavirus (PCR) Crossmatch 07/14/19 07/14/19 07/14/19 04:40 05:38 05:45 WBC RBC Hgb Hct MCV MCH MCHC RDW Plt Count Lymph % (Auto) [place] % (Auto) Lymph # [place] # Baso # Seg Neutrophils % Seg Neuts % (Manual) Lymphocytes % (Manual) Monocytes % (Manual) Nucleated RBC % Seg Neutrophils # Seg Neutrophils # Man Lymphocytes # (Manual) Monocytes # (Manual) PT INR D-Dimer ABG pH 7.230 L ABG pO2 72.1 L ABG HCO3 ABG O2 Saturation 89.3 L ABG Base Excess -2.7 L ABG Hemoglobin 6.7 L Oxyhemoglobin 87.7 L Sodium Potassium Chloride 107.4 H Carbon Dioxide BUN 45 H Creatinine Glucose 101 H POC Glucose 154 H Lactic Acid Calcium Magnesium Iron TIBC Ferritin AST ALT Lactate Dehydrogenase Troponin T C-Reactive Protein Total Protein Albumin Prealbumin Cholesterol LDL Cholesterol Direct HDL Cholesterol Urine WBC (Auto) Vancomycin Trough Coronavirus (PCR) Crossmatch 07/14/19 07/14/19 07/14/19 12:25 18:20 19:01 WBC 22.4 H RBC 2.70 L Hgb 7.5 L Hct 23.3 L MCV MCH MCHC RDW 19.5 H Plt Count Lymph % (Auto) [place] % (Auto) Lymph # [place] # Baso # Seg Neutrophils % Seg Neuts % (Manual) Lymphocytes % (Manual) Monocytes % (Manual) Nucleated RBC % Seg Neutrophils # Seg Neutrophils # Man Lymphocytes # (Manual) Monocytes # (Manual) PT INR D-Dimer ABG pH ABG pO2 ABG HCO3 ABG O2 Saturation ABG Base Excess ABG Hemoglobin Oxyhemoglobin Sodium Potassium Chloride Carbon Dioxide BUN Creatinine Glucose POC Glucose 136 H 131 H Lactic Acid Calcium Magnesium Iron TIBC Ferritin AST ALT Lactate Dehydrogenase Troponin T C-Reactive Protein Total Protein Albumin Prealbumin Cholesterol LDL Cholesterol Direct HDL Cholesterol Urine WBC (Auto) Vancomycin Trough Coronavirus (PCR) Crossmatch 07/15/19 07/15/19 07/15/19 00:17 04:35 05:18 WBC 20.6 H RBC 2.41 L Hgb 6.8 L Hct 20.7 L MCV MCH MCHC RDW 20.2 H Plt Count Lymph % (Auto) [place] % (Auto) Lymph # [place] # Baso # Seg Neutrophils % Seg Neuts % (Manual) 92.0 H Lymphocytes % (Manual) 5.0 L Monocytes % (Manual) Nucleated RBC % Seg Neutrophils # Seg Neutrophils # Man 19.0 H Lymphocytes # (Manual) 1.0 L Monocytes # (Manual) PT INR D-Dimer ABG pH 7.342 L ABG pO2 ABG HCO3 ABG O2 Saturation ABG Base Excess -3.1 L ABG Hemoglobin 7.2 L Oxyhemoglobin 94.9 L Sodium Potassium Chloride Carbon Dioxide BUN Creatinine Glucose POC Glucose 116 H Lactic Acid Calcium Magnesium Iron TIBC Ferritin AST ALT Lactate Dehydrogenase Troponin T C-Reactive Protein Total Protein Albumin Prealbumin Cholesterol LDL Cholesterol Direct HDL Cholesterol Urine WBC (Auto) Vancomycin Trough Coronavirus (PCR) Crossmatch 07/15/19 07/15/19 07/15/19 05:18 05:57 11:28 WBC RBC Hgb Hct MCV MCH MCHC RDW Plt Count Lymph % (Auto) [place] % (Auto) Lymph # [place] # Baso # Seg Neutrophils % Seg Neuts % (Manual) Lymphocytes % (Manual) Monocytes % (Manual) Nucleated RBC % Seg Neutrophils # Seg Neutrophils # Man Lymphocytes # (Manual) Monocytes # (Manual) PT INR D-Dimer ABG pH ABG pO2 ABG HCO3 ABG O2 Saturation ABG Base Excess ABG Hemoglobin Oxyhemoglobin Sodium Potassium Chloride Carbon Dioxide 20 L BUN 59 H Creatinine Glucose 140 H POC Glucose 139 H 117 H Lactic Acid Calcium Magnesium Iron TIBC Ferritin AST ALT Lactate Dehydrogenase Troponin T C-Reactive Protein Total Protein Albumin Prealbumin Cholesterol LDL Cholesterol Direct HDL Cholesterol Urine WBC (Auto) Vancomycin Trough Coronavirus (PCR) Crossmatch 07/15/19 07/16/19 07/16/19 18:13 00:06 03:43 WBC RBC Hgb Hct MCV MCH MCHC RDW Plt Count Lymph % (Auto) [place] % (Auto) Lymph # [place] # Baso # Seg Neutrophils % Seg Neuts % (Manual) Lymphocytes % (Manual) Monocytes % (Manual) Nucleated RBC % Seg Neutrophils # Seg Neutrophils # Man Lymphocytes # (Manual) Monocytes # (Manual) PT INR D-Dimer ABG pH 7.344 L ABG pO2 68.6 L ABG HCO3 ABG O2 Saturation ABG Base Excess -3.5 L ABG Hemoglobin 6.1 L Oxyhemoglobin 93.3 L Sodium Potassium Chloride Carbon Dioxide BUN Creatinine Glucose POC Glucose 114 H 119 H Lactic Acid Calcium Magnesium Iron TIBC Ferritin AST ALT Lactate Dehydrogenase Troponin T C-Reactive Protein Total Protein Albumin Prealbumin Cholesterol LDL Cholesterol Direct HDL Cholesterol Urine WBC (Auto) Vancomycin Trough Coronavirus (PCR) Crossmatch 07/16/19 07/16/19 07/16/19 04:41 04:41 12:09 WBC 19.6 H RBC 2.81 L Hgb 7.7 L Hct 24.0 L MCV MCH 27 L MCHC RDW 19.4 H Plt Count 514 H Lymph % (Auto) 6.7 L [place] % (Auto) Lymph # [place] # 1.0 H Baso # Seg Neutrophils % 87.0 H Seg Neuts % (Manual) Lymphocytes % (Manual) Monocytes % (Manual) Nucleated RBC % Seg Neutrophils # 17.0 H Seg Neutrophils # Man Lymphocytes # (Manual) Monocytes # (Manual) PT INR D-Dimer ABG pH ABG pO2 ABG HCO3 ABG O2 Saturation ABG Base Excess ABG Hemoglobin Oxyhemoglobin Sodium Potassium 5.9 H Chloride Carbon Dioxide 21 L BUN 73 H Creatinine 2.0 H Glucose POC Glucose 141 H Lactic Acid Calcium Magnesium Iron TIBC Ferritin AST ALT Lactate Dehydrogenase Troponin T C-Reactive Protein Total Protein Albumin Prealbumin Cholesterol LDL Cholesterol Direct HDL Cholesterol Urine WBC (Auto) Vancomycin Trough Coronavirus (PCR) Crossmatch 07/16/19 07/16/19 07/17/19 16:19 17:45 00:16 WBC RBC Hgb Hct MCV MCH MCHC RDW Plt Count Lymph % (Auto) [place] % (Auto) Lymph # [place] # Baso # Seg Neutrophils % Seg Neuts % (Manual) Lymphocytes % (Manual) Monocytes % (Manual) Nucleated RBC % Seg Neutrophils # Seg Neutrophils # Man Lymphocytes # (Manual) Monocytes # (Manual) PT INR D-Dimer ABG pH ABG pO2 ABG HCO3 ABG O2 Saturation ABG Base Excess ABG Hemoglobin Oxyhemoglobin Sodium Potassium 5.1 H Chloride Carbon Dioxide 20 L BUN 72 H Creatinine 1.7 H Glucose 128 H POC Glucose 181 H 164 H Lactic Acid Calcium Magnesium Iron TIBC Ferritin AST ALT Lactate Dehydrogenase Troponin T C-Reactive Protein Total Protein Albumin Prealbumin Cholesterol LDL Cholesterol Direct HDL Cholesterol Urine WBC (Auto) Vancomycin Trough Coronavirus (PCR) Crossmatch 07/17/19 07/17/19 07/17/19 04:20 04:39 04:39 WBC 16.1 H RBC 2.92 L Hgb 8.0 L Hct 25.5 L MCV MCH MCHC 31 L RDW 19.7 H Plt Count 564 H Lymph % (Auto) 3.6 L [place] % (Auto) 7.4 H Lymph # 0.6 L [place] # 1.2 H Baso # Seg Neutrophils % 87.5 H Seg Neuts % (Manual) Lymphocytes % (Manual) Monocytes % (Manual) Nucleated RBC % Seg Neutrophils # 14.1 H Seg Neutrophils # Man Lymphocytes # (Manual) Monocytes # (Manual) PT INR D-Dimer ABG pH 7.231 L ABG pO2 95.3 H ABG HCO3 ABG O2 Saturation ABG Base Excess -5.0 L ABG Hemoglobin 7.9 L Oxyhemoglobin 94.8 L Sodium Potassium Chloride 107.8 H Carbon Dioxide 21 L BUN 68 H Creatinine Glucose POC Glucose Lactic Acid Calcium Magnesium Iron TIBC Ferritin AST ALT Lactate Dehydrogenase Troponin T C-Reactive Protein Total Protein Albumin Prealbumin Cholesterol LDL Cholesterol Direct HDL Cholesterol Urine WBC (Auto) Vancomycin Trough Coronavirus (PCR) Crossmatch 07/17/19 07/17/19 07/17/19 05:28 12:11 18:48 WBC RBC Hgb Hct MCV MCH MCHC RDW Plt Count Lymph % (Auto) [place] % (Auto) Lymph # [place] # Baso # Seg Neutrophils % Seg Neuts % (Manual) Lymphocytes % (Manual) Monocytes % (Manual) Nucleated RBC % Seg Neutrophils # Seg Neutrophils # Man Lymphocytes # (Manual) Monocytes # (Manual) PT INR D-Dimer ABG pH ABG pO2 ABG HCO3 ABG O2 Saturation ABG Base Excess ABG Hemoglobin Oxyhemoglobin Sodium Potassium Chloride Carbon Dioxide BUN Creatinine Glucose POC Glucose 121 H 125 H 174 H Lactic Acid Calcium Magnesium Iron TIBC Ferritin AST ALT Lactate Dehydrogenase Troponin T C-Reactive Protein Total Protein Albumin Prealbumin Cholesterol LDL Cholesterol Direct HDL Cholesterol Urine WBC (Auto) Vancomycin Trough Coronavirus (PCR) Crossmatch 07/17/19 07/17/19 07/18/19 19:55 23:57 02:30 WBC RBC Hgb Hct MCV MCH MCHC RDW Plt Count Lymph % (Auto) [place] % (Auto) Lymph # [place] # Baso # Seg Neutrophils % Seg Neuts % (Manual) Lymphocytes % (Manual) Monocytes % (Manual) Nucleated RBC % Seg Neutrophils # Seg Neutrophils # Man Lymphocytes # (Manual) Monocytes # (Manual) PT INR D-Dimer ABG pH 7.344 L 7.294 L ABG pO2 78.5 L 119.2 H ABG HCO3 ABG O2 Saturation ABG Base Excess -3.3 L -2.6 L ABG Hemoglobin 8.6 L 8.1 L Oxyhemoglobin 94.8 L Sodium Potassium Chloride Carbon Dioxide BUN Creatinine Glucose POC Glucose 148 H Lactic Acid Calcium Magnesium Iron TIBC Ferritin AST ALT Lactate Dehydrogenase Troponin T C-Reactive Protein Total Protein Albumin Prealbumin Cholesterol LDL Cholesterol Direct HDL Cholesterol Urine WBC (Auto) Vancomycin Trough Coronavirus (PCR) Crossmatch 07/18/19 07/18/19 07/18/19 04:49 05:22 05:22 WBC 15.9 H RBC 3.00 L Hgb 8.1 L Hct 26.0 L MCV MCH 27 L MCHC 31 L RDW 19.4 H Plt Count 733 H Lymph % (Auto) 6.3 L [place] % (Auto) 7.4 H Lymph # 1.0 L [place] # 1.2 H Baso # 0.2 H Seg Neutrophils % 83.8 H Seg Neuts % (Manual) Lymphocytes % (Manual) Monocytes % (Manual) Nucleated RBC % Seg Neutrophils # 13.3 H Seg Neutrophils # Man Lymphocytes # (Manual) Monocytes # (Manual) PT INR D-Dimer ABG pH ABG pO2 ABG HCO3 ABG O2 Saturation ABG Base Excess ABG Hemoglobin Oxyhemoglobin Sodium Potassium Chloride 110.6 H Carbon Dioxide BUN 61 H Creatinine Glucose 109 H POC Glucose 116 H Lactic Acid Calcium Magnesium Iron TIBC Ferritin AST ALT Lactate Dehydrogenase Troponin T C-Reactive Protein Total Protein Albumin Prealbumin Cholesterol LDL Cholesterol Direct HDL Cholesterol Urine WBC (Auto) Vancomycin Trough Coronavirus (PCR) Crossmatch 07/18/19 07/18/19 07/18/19 12:23 18:06 22:20 WBC RBC Hgb Hct MCV MCH MCHC RDW Plt Count Lymph % (Auto) [place] % (Auto) Lymph # [place] # Baso # Seg Neutrophils % Seg Neuts % (Manual) Lymphocytes % (Manual) Monocytes % (Manual) Nucleated RBC % Seg Neutrophils # Seg Neutrophils # Man Lymphocytes # (Manual) Monocytes # (Manual) PT INR D-Dimer ABG pH 7.338 L ABG pO2 135.1 H ABG HCO3 ABG O2 Saturation ABG Base Excess ABG Hemoglobin 9.2 L Oxyhemoglobin Sodium Potassium Chloride Carbon Dioxide BUN Creatinine Glucose POC Glucose 114 H 113 H Lactic Acid Calcium Magnesium Iron TIBC Ferritin AST ALT Lactate Dehydrogenase Troponin T C-Reactive Protein Total Protein Albumin Prealbumin Cholesterol LDL Cholesterol Direct HDL Cholesterol Urine WBC (Auto) Vancomycin Trough Coronavirus (PCR) Crossmatch 07/18/19 07/19/19 07/19/19 23:33 03:45 05:18 WBC RBC Hgb Hct MCV MCH MCHC RDW Plt Count Lymph % (Auto) [place] % (Auto) Lymph # [place] # Baso # Seg Neutrophils % Seg Neuts % (Manual) Lymphocytes % (Manual) Monocytes % (Manual) Nucleated RBC % Seg Neutrophils # Seg Neutrophils # Man Lymphocytes # (Manual) Monocytes # (Manual) PT INR D-Dimer ABG pH 7.342 L ABG pO2 95.0 H ABG HCO3 ABG O2 Saturation ABG Base Excess ABG Hemoglobin 8.5 L Oxyhemoglobin Sodium Potassium Chloride Carbon Dioxide BUN Creatinine Glucose POC Glucose 125 H 111 H Lactic Acid Calcium Magnesium Iron TIBC Ferritin AST ALT Lactate Dehydrogenase Troponin T C-Reactive Protein Total Protein Albumin Prealbumin Cholesterol LDL Cholesterol Direct HDL Cholesterol Urine WBC (Auto) Vancomycin Trough Coronavirus (PCR) Crossmatch 07/19/19 07/19/19 07/19/19 08:45 08:45 11:47 WBC 15.9 H RBC 3.31 L Hgb 9.1 L Hct 28.4 L MCV MCH 27 L MCHC RDW 19.1 H Plt Count 858 H Lymph % (Auto) 4.9 L [place] % (Auto) 8.1 H Lymph # 0.8 L [place] # 1.3 H Baso # Seg Neutrophils % 85.5 H Seg Neuts % (Manual) Lymphocytes % (Manual) Monocytes % (Manual) Nucleated RBC % Seg Neutrophils # 13.6 H Seg Neutrophils # Man Lymphocytes # (Manual) Monocytes # (Manual) PT INR D-Dimer ABG pH ABG pO2 ABG HCO3 ABG O2 Saturation ABG Base Excess ABG Hemoglobin Oxyhemoglobin Sodium Potassium Chloride 111.6 H Carbon Dioxide BUN 50 H Creatinine 0.7 L Glucose 118 H POC Glucose 114 H Lactic Acid Calcium Magnesium Iron TIBC Ferritin AST ALT Lactate Dehydrogenase Troponin T C-Reactive Protein Total Protein Albumin Prealbumin Cholesterol LDL Cholesterol Direct HDL Cholesterol Urine WBC (Auto) Vancomycin Trough Coronavirus (PCR) Crossmatch 07/19/19 07/19/19 07/20/19 18:25 23:44 04:39 WBC RBC Hgb Hct MCV MCH MCHC RDW Plt Count Lymph % (Auto) [place] % (Auto) Lymph # [place] # Baso # Seg Neutrophils % Seg Neuts % (Manual) Lymphocytes % (Manual) Monocytes % (Manual) Nucleated RBC % Seg Neutrophils # Seg Neutrophils # Man Lymphocytes # (Manual) Monocytes # (Manual) PT INR D-Dimer ABG pH ABG pO2 ABG HCO3 ABG O2 Saturation ABG Base Excess ABG Hemoglobin Oxyhemoglobin Sodium Potassium Chloride 110.3 H Carbon Dioxide BUN 44 H Creatinine 0.6 L Glucose 120 H POC Glucose 115 H 117 H Lactic Acid Calcium Magnesium Iron TIBC Ferritin AST ALT Lactate Dehydrogenase Troponin T C-Reactive Protein Total Protein Albumin Prealbumin Cholesterol LDL Cholesterol Direct HDL Cholesterol Urine WBC (Auto) Vancomycin Trough Coronavirus (PCR) Crossmatch 07/20/19 07/21/19 07/21/19 05:30 11:59 17:40 WBC RBC Hgb Hct MCV MCH MCHC RDW Plt Count Lymph % (Auto) [place] % (Auto) Lymph # [place] # Baso # Seg Neutrophils % Seg Neuts % (Manual) Lymphocytes % (Manual) Monocytes % (Manual) Nucleated RBC % Seg Neutrophils # Seg Neutrophils # Man Lymphocytes # (Manual) Monocytes # (Manual) PT INR D-Dimer ABG pH ABG pO2 ABG HCO3 ABG O2 Saturation ABG Base Excess ABG Hemoglobin Oxyhemoglobin Sodium Potassium Chloride Carbon Dioxide BUN Creatinine Glucose POC Glucose 131 H 122 H 125 H Lactic Acid Calcium Magnesium Iron TIBC Ferritin AST ALT Lactate Dehydrogenase Troponin T C-Reactive Protein Total Protein Albumin Prealbumin Cholesterol LDL Cholesterol Direct HDL Cholesterol Urine WBC (Auto) Vancomycin Trough Coronavirus (PCR) Crossmatch 07/22/19 07/22/19 07/22/19 05:38 05:38 12:29 WBC 12.6 H RBC 3.19 L Hgb 8.9 L Hct 27.5 L MCV MCH MCHC RDW 18.9 H Plt Count 1101 H* Lymph % (Auto) [place] % (Auto) 12.2 H Lymph # [place] # 1.5 H Baso # Seg Neutrophils % 72.8 H Seg Neuts % (Manual) 76.0 H Lymphocytes % (Manual) 7.0 L Monocytes % (Manual) 14.0 H Nucleated RBC % 1.0 H Seg Neutrophils # 9.2 H Seg Neutrophils # Man 9.6 H Lymphocytes # (Manual) 0.9 L Monocytes # (Manual) 1.8 H PT INR D-Dimer ABG pH ABG pO2 ABG HCO3 ABG O2 Saturation ABG Base Excess ABG Hemoglobin Oxyhemoglobin Sodium Potassium 3.4 L Chloride Carbon Dioxide BUN 29 H Creatinine 0.5 L Glucose POC Glucose 116 H Lactic Acid Calcium Magnesium Iron TIBC Ferritin AST ALT Lactate Dehydrogenase Troponin T C-Reactive Protein Total Protein Albumin Prealbumin Cholesterol LDL Cholesterol Direct HDL Cholesterol Urine WBC (Auto) Vancomycin Trough Coronavirus (PCR) Crossmatch 07/22/19 07/22/19 07/23/19 18:20 23:51 04:52 WBC RBC Hgb Hct MCV MCH MCHC RDW Plt Count Lymph % (Auto) [place] % (Auto) Lymph # [place] # Baso # Seg Neutrophils % Seg Neuts % (Manual) Lymphocytes % (Manual) Monocytes % (Manual) Nucleated RBC % Seg Neutrophils # Seg Neutrophils # Man Lymphocytes # (Manual) Monocytes # (Manual) PT INR D-Dimer ABG pH ABG pO2 ABG HCO3 ABG O2 Saturation ABG Base Excess ABG Hemoglobin Oxyhemoglobin Sodium Potassium Chloride Carbon Dioxide BUN 24 H Creatinine 0.4 L Glucose POC Glucose 107 H 110 H Lactic Acid Calcium Magnesium Iron TIBC Ferritin AST ALT Lactate Dehydrogenase Troponin T C-Reactive Protein Total Protein Albumin Prealbumin Cholesterol LDL Cholesterol Direct HDL Cholesterol Urine WBC (Auto) Vancomycin Trough Coronavirus (PCR) Crossmatch 07/23/19 07/23/19 07/24/19 06:00 23:15 04:40 WBC RBC Hgb Hct MCV MCH MCHC RDW Plt Count Lymph % (Auto) [place] % (Auto) Lymph # [place] # Baso # Seg Neutrophils % Seg Neuts % (Manual) Lymphocytes % (Manual) Monocytes % (Manual) Nucleated RBC % Seg Neutrophils # Seg Neutrophils # Man Lymphocytes # (Manual) Monocytes # (Manual) PT INR D-Dimer ABG pH ABG pO2 73.5 L ABG HCO3 27.0 H 28.5 H ABG O2 Saturation 94.5 L ABG Base Excess ABG Hemoglobin 9.4 L 8.9 L Oxyhemoglobin 94.0 L 92.7 L Sodium Potassium Chloride Carbon Dioxide BUN Creatinine Glucose POC Glucose 117 H Lactic Acid Calcium Magnesium Iron TIBC Ferritin AST ALT Lactate Dehydrogenase Troponin T C-Reactive Protein Total Protein Albumin Prealbumin Cholesterol LDL Cholesterol Direct HDL Cholesterol Urine WBC (Auto) Vancomycin Trough Coronavirus (PCR) Crossmatch 07/24/19 07/24/19 07/25/19 05:25 12:06 00:16 WBC RBC Hgb Hct MCV MCH MCHC RDW Plt Count Lymph % (Auto) [place] % (Auto) Lymph # [place] # Baso # Seg Neutrophils % Seg Neuts % (Manual) Lymphocytes % (Manual) Monocytes % (Manual) Nucleated RBC % Seg Neutrophils # Seg Neutrophils # Man Lymphocytes # (Manual) Monocytes # (Manual) PT INR D-Dimer ABG pH ABG pO2 ABG HCO3 ABG O2 Saturation ABG Base Excess ABG Hemoglobin Oxyhemoglobin Sodium Potassium Chloride Carbon Dioxide BUN Creatinine Glucose POC Glucose 114 H 108 H 106 H Lactic Acid Calcium Magnesium Iron TIBC Ferritin AST ALT Lactate Dehydrogenase Troponin T C-Reactive Protein Total Protein Albumin Prealbumin Cholesterol LDL Cholesterol Direct HDL Cholesterol Urine WBC (Auto) Vancomycin Trough Coronavirus (PCR) Crossmatch 07/25/19 07/25/19 07/25/19 05:14 05:14 05:17 WBC 17.8 H RBC 3.32 L Hgb 9.2 L Hct 28.6 L MCV MCH MCHC RDW 19.9 H Plt Count 994 H Lymph % (Auto) [place] % (Auto) Lymph # [place] # Baso # Seg Neutrophils % Seg Neuts % (Manual) 82.0 H Lymphocytes % (Manual) 5.0 L Monocytes % (Manual) Nucleated RBC % Seg Neutrophils # Seg Neutrophils # Man 14.6 H Lymphocytes # (Manual) 0.9 L Monocytes # (Manual) 1.2 H PT INR D-Dimer ABG pH ABG pO2 ABG HCO3 ABG O2 Saturation ABG Base Excess ABG Hemoglobin Oxyhemoglobin Sodium Potassium Chloride Carbon Dioxide BUN Creatinine 0.4 L Glucose 110 H POC Glucose 107 H Lactic Acid Calcium Magnesium Iron TIBC Ferritin AST ALT Lactate Dehydrogenase Troponin T C-Reactive Protein Total Protein Albumin Prealbumin Cholesterol LDL Cholesterol Direct HDL Cholesterol Urine WBC (Auto) Vancomycin Trough Coronavirus (PCR) Crossmatch 07/25/19 07/25/19 07/26/19 11:55 23:49 06:01 WBC RBC Hgb Hct MCV MCH MCHC RDW Plt Count Lymph % (Auto) [place] % (Auto) Lymph # [place] # Baso # Seg Neutrophils % Seg Neuts % (Manual) Lymphocytes % (Manual) Monocytes % (Manual) Nucleated RBC % Seg Neutrophils # Seg Neutrophils # Man Lymphocytes # (Manual) Monocytes # (Manual) PT INR D-Dimer ABG pH ABG pO2 ABG HCO3 ABG O2 Saturation ABG Base Excess ABG Hemoglobin Oxyhemoglobin Sodium Potassium Chloride Carbon Dioxide BUN Creatinine Glucose POC Glucose 123 H 118 H 106 H Lactic Acid Calcium Magnesium Iron TIBC Ferritin AST ALT Lactate Dehydrogenase Troponin T C-Reactive Protein Total Protein Albumin Prealbumin Cholesterol LDL Cholesterol Direct HDL Cholesterol Urine WBC (Auto) Vancomycin Trough Coronavirus (PCR) Crossmatch 07/26/19 07/27/19 07/27/19 17:02 00:28 05:16 WBC RBC Hgb Hct MCV MCH MCHC RDW Plt Count Lymph % (Auto) [place] % (Auto) Lymph # [place] # Baso # Seg Neutrophils % Seg Neuts % (Manual) Lymphocytes % (Manual) Monocytes % (Manual) Nucleated RBC % Seg Neutrophils # Seg Neutrophils # Man Lymphocytes # (Manual) Monocytes # (Manual) PT INR D-Dimer ABG pH ABG pO2 63.4 L ABG HCO3 31.3 H ABG O2 Saturation 92.7 L ABG Base Excess 6.3 H ABG Hemoglobin 7.6 L Oxyhemoglobin 90.9 L Sodium Potassium Chloride Carbon Dioxide BUN Creatinine Glucose POC Glucose 116 H 158 H Lactic Acid Calcium Magnesium Iron TIBC Ferritin AST ALT Lactate Dehydrogenase Troponin T C-Reactive Protein Total Protein Albumin Prealbumin Cholesterol LDL Cholesterol Direct HDL Cholesterol Urine WBC (Auto) Vancomycin Trough Coronavirus (PCR) Crossmatch 07/28/19 07/28/19 07/28/19 10:13 10:13 23:54 WBC 18.5 H RBC 3.20 L Hgb 8.8 L Hct 26.8 L MCV MCH 27 L MCHC RDW 19.9 H Plt Count 730 H Lymph % (Auto) [place] % (Auto) Lymph # [place] # Baso # Seg Neutrophils % Seg Neuts % (Manual) Lymphocytes % (Manual) Monocytes % (Manual) Nucleated RBC % Seg Neutrophils # Seg Neutrophils # Man Lymphocytes # (Manual) Monocytes # (Manual) PT INR D-Dimer ABG pH ABG pO2 ABG HCO3 ABG O2 Saturation ABG Base Excess ABG Hemoglobin Oxyhemoglobin Sodium Potassium 3.2 L Chloride 97.5 L Carbon Dioxide 31 H BUN Creatinine 0.5 L Glucose POC Glucose 120 H Lactic Acid Calcium Magnesium Iron TIBC Ferritin AST ALT Lactate Dehydrogenase Troponin T C-Reactive Protein Total Protein Albumin Prealbumin Cholesterol LDL Cholesterol Direct HDL Cholesterol Urine WBC (Auto) Vancomycin Trough Coronavirus (PCR) Crossmatch 07/29/19 07/29/19 07/29/19 11:57 17:43 Unknown WBC RBC Hgb Hct MCV MCH MCHC RDW Plt Count Lymph % (Auto) [place] % (Auto) Lymph # [place] # Baso # Seg Neutrophils % Seg Neuts % (Manual) Lymphocytes % (Manual) Monocytes % (Manual) Nucleated RBC % Seg Neutrophils # Seg Neutrophils # Man Lymphocytes # (Manual) Monocytes # (Manual) PT INR D-Dimer ABG pH ABG pO2 ABG HCO3 ABG O2 Saturation ABG Base Excess ABG Hemoglobin Oxyhemoglobin Sodium Potassium Chloride Carbon Dioxide BUN Creatinine Glucose POC Glucose 112 H Lactic Acid Calcium Magnesium Iron TIBC Ferritin AST ALT Lactate Dehydrogenase Troponin T C-Reactive Protein Total Protein Albumin Prealbumin Cholesterol LDL Cholesterol Direct HDL Cholesterol Urine WBC (Auto) 63.0 H Vancomycin Trough Coronavirus (PCR) Positive A Crossmatch 07/30/19 07/30/19 07/30/19 00:20 04:35 04:35 WBC 24.3 H RBC 3.12 L Hgb 8.5 L Hct 26.3 L MCV MCH 27 L MCHC RDW 20.2 H Plt Count 550 H Lymph % (Auto) [place] % (Auto) Lymph # [place] # Baso # Seg Neutrophils % Seg Neuts % (Manual) Lymphocytes % (Manual) Monocytes % (Manual) Nucleated RBC % Seg Neutrophils # Seg Neutrophils # Man Lymphocytes # (Manual) Monocytes # (Manual) PT INR D-Dimer ABG pH ABG pO2 ABG HCO3 ABG O2 Saturation ABG Base Excess ABG Hemoglobin Oxyhemoglobin Sodium Potassium 3.0 L Chloride 96.3 L Carbon Dioxide 32 H BUN Creatinine 0.5 L Glucose POC Glucose 106 H Lactic Acid Calcium Magnesium Iron TIBC Ferritin AST ALT Lactate Dehydrogenase Troponin T C-Reactive Protein Total Protein Albumin Prealbumin Cholesterol LDL Cholesterol Direct HDL Cholesterol Urine WBC (Auto) Vancomycin Trough Coronavirus (PCR) Crossmatch 07/31/19 07/31/19 07/31/19 04:42 04:42 11:33 WBC 23.8 H RBC 3.10 L Hgb 8.4 L Hct 26.1 L MCV MCH 27 L MCHC RDW 19.6 H Plt Count 561 H Lymph % (Auto) [place] % (Auto) Lymph # [place] # Baso # Seg Neutrophils % Seg Neuts % (Manual) Lymphocytes % (Manual) Monocytes % (Manual) Nucleated RBC % Seg Neutrophils # Seg Neutrophils # Man Lymphocytes # (Manual) Monocytes # (Manual) PT INR D-Dimer ABG pH ABG pO2 ABG HCO3 ABG O2 Saturation ABG Base Excess ABG Hemoglobin Oxyhemoglobin Sodium 135 L Potassium Chloride 93.9 L Carbon Dioxide 32 H BUN Creatinine 0.4 L Glucose POC Glucose 116 H Lactic Acid Calcium Magnesium Iron TIBC Ferritin AST ALT Lactate Dehydrogenase Troponin T C-Reactive Protein Total Protein Albumin 1.6 L Prealbumin 0.037 L Cholesterol LDL Cholesterol Direct HDL Cholesterol Urine WBC (Auto) Vancomycin Trough Coronavirus (PCR) Crossmatch 07/31/19 08/01/19 08/01/19 23:33 04:57 04:57 WBC 26.7 H RBC 3.12 L Hgb 8.5 L Hct 26.3 L MCV MCH 27 L MCHC RDW 19.2 H Plt Count 602 H Lymph % (Auto) [place] % (Auto) Lymph # [place] # Baso # Seg Neutrophils % Seg Neuts % (Manual) 93.0 H Lymphocytes % (Manual) 2.0 L Monocytes % (Manual) Nucleated RBC % Seg Neutrophils # Seg Neutrophils # Man 24.8 H Lymphocytes # (Manual) 0.5 L Monocytes # (Manual) 1.1 H PT INR D-Dimer ABG pH ABG pO2 ABG HCO3 ABG O2 Saturation ABG Base Excess ABG Hemoglobin Oxyhemoglobin Sodium 132 L Potassium Chloride 93.8 L Carbon Dioxide 31 H BUN Creatinine 0.3 L Glucose POC Glucose 148 H Lactic Acid Calcium 8.1 L Magnesium Iron TIBC Ferritin AST ALT Lactate Dehydrogenase Troponin T C-Reactive Protein Total Protein Albumin Prealbumin Cholesterol LDL Cholesterol Direct HDL Cholesterol Urine WBC (Auto) Vancomycin Trough Coronavirus (PCR) Crossmatch 08/01/19 12:16 WBC RBC Hgb Hct MCV MCH MCHC RDW Plt Count Lymph % (Auto) [place] % (Auto) Lymph # [place] # Baso # Seg Neutrophils % Seg Neuts % (Manual) Lymphocytes % (Manual) Monocytes % (Manual) Nucleated RBC % Seg Neutrophils # Seg Neutrophils # Man Lymphocytes # (Manual) Monocytes # (Manual) PT INR D-Dimer ABG pH ABG pO2 ABG HCO3 ABG O2 Saturation ABG Base Excess ABG Hemoglobin Oxyhemoglobin Sodium Potassium Chloride Carbon Dioxide BUN Creatinine Glucose POC Glucose 120 H Lactic Acid Calcium Magnesium Iron TIBC Ferritin AST ALT Lactate Dehydrogenase Troponin T C-Reactive Protein Total Protein Albumin Prealbumin Cholesterol LDL Cholesterol Direct HDL Cholesterol Urine WBC (Auto) Vancomycin Trough Coronavirus (PCR) Crossmatch Chest x-ray: image reviewed (improving bilateral infiltrates but still significant disease burden) Allied health notes reviewed: nursing
[2019-08-02] MEDS: INSULIN LISPRO 100 UNIT/ML SUB-Q SCH ×4 (00:05→19:23)
[2019-08-02] MEDS: CEFEPIME/NS 1 GM/100 ML 1 GM/100 ML BAG IV SCH ×3 (05:15→21:24)
--- NOTE | 2019-08-02 08:57 | Progress Note ---
Assessment and Plan Cultures: 07/03/2019 urine culture: No growth 07/03/2019 Tracheal aspirate: E.coli 07/29/2019 urine culture: pending 07/30/2019 blood culture: pending A/P: 69-year-old male with CVA, hypertension, dementia, schizophrenia, alcohol use disorder was admitted to the emergency room after being brought in by EMS with progressive shortness of breath and unresponsiveness. He was noted to have ag onal breathing and a faint pulse requiring CPR. It seems patient was on hospice recently, prior to admission. #Shock, likely septic: shock resolved, remains off pressors. Noted new fever and worsening leukocytosis ? source UTI/ penile/scrotal wounds. Very high procal=24 on 07/29. Repeat CXR decreased infiltrates #Penile/scrotal and buttocks wounds: ?cellulitis #New UTI: per documentation initial carroll placed on 07/03, now new carroll? #Severe COVID-19 disease and pneumonia: Markers improving. Completed Plaquenil. Completed Ceftriaxone for treatment E.coli in tracheal aspirate. #Acute respiratory failure: on mechanical ventilation. #Transaminitis: Likely from COVID-19, shock #Multiple skin tears documented on admission Recs: Continue Wound care Off loading Tracheostomy placement to be scheduled when COVID testing is negative per surgery monitor off abx Will follow Padmaja Garcia MD Infectious Diseases [employer] [facility] ([facility]) M [phone] O [phone] Subjective Date of service: 08/02/19 Principal diagnosis: Bilateral pneumonia, severe sepsis with septic shock, encephalopathy Interval history: Remains intubated, no fever for 24h, no pressors, on sedative Objective - Exam Narrative Exam: General appearance: sedated on the vent Eyes: anicteric sclerae, moist conjunctivae; no lid-lag; PERRLA HENT: Atraumatic; oropharynx ETT Lungs: CTA CV: RRR no murmur Abdomen: Soft, non-tender Extremities: no edema, no cyanosis Skin: No rash. Genital: penile/scrotal ulcer covered w dressings Psych: no agitated Neuro: sedated Carroll - Constitutional Vitals: Vital Signs Temp Pulse Resp BP Pulse Ox 98.8 F 121 H 21 131/71 95 08/02/19 04:00 08/02/19 08:30 08/02/19 08:30 08/02/19 08:30 08/02/19 08:30 Temperature -Last 24 Hours Temperature 98.8 F Temperature 98.9 F Temperature 98.0 F Temperature 96.5 F Temperature 97.6 F - Labs CBC & Chem 7: 08/01/19 04:57 08/01/19 04:57 Labs: Abnormal lab results 08/01/19 08/02/19 08/02/19 Range/Units 12:16 00:22 05:24 POC Glucose 120 H 119 H 113 H (70-105)
--- NOTE | 2019-08-02 09:28 | Progress Note ---
Assessment and Plan S/p Cardiopulmonary arrest with ROSC Severe Sepsis with septic shock. Acute hypoxemic respiratory failure on MVS COVID-19 positive with elevated markers Bilateral pneumonia Elevated LFTs. Oropharyngeal dysphagia s/p PEG Acute kidney injury Decubitus ulcers-unstageable Moderate protein calorie malnutriton [id number] metabolic acidosis Leukocytosis -improving Thrombocytosis Microcytic anemia PEG malfunction Place NGT fro medications and enteric nutritonal support Get CBC, BMP -Continue enoxaparin for VTE prophylaxis- currently has severe thrombocytosis -On Fentanyl infusion, at 1mcg to allow for weaning trials -Will coordinate sedation interruption( RN) and SBT( RT) today to optimize chances of success with weaning trial -Continue all critical care as documented below -ABG, CXR prn - continue airborne, droplet and contact isolation for COVID-19 - continue wound care per WCT - sedation prn for target RASS 0 to -1 - continue to wean supplemental oxygen for target O2 sat's > 90% - Daily SAT's and SBT assessment as tolerated - VAP bundle addressed - continue lung protective strategies - continue bronchodilators with pulmonary hygiene per RT - wean per pulmonary driven protocols otherwise - accuchecks with glycemic control per SSI (While critically ill target blood glucose of 140-180 mg/dL; avoid hypoglycemia) - continue to avoid benzodiazepines, reduce the possibility of delirium - prn analgesia per CPOT score - Maintenance of sleep-wake cycle, avoid delirium - continue enteral nutritional support at goal rate as tolerated - VTE prophylaxis-SCDs/Enoxaparin -Stress ulcer prophylaxis- Famotidine - PT/OT/ROM exercises - continue mobility protocol, off loading and skin assessment for pressure ulcer prevention - Monitor hemodynamics closely -Wright catheter in this critically ill patient with unstageable sacral decubitus ulcer -PEG site care - continue other care per attending / other consultants - discharge planning ongoing concurrently .... Re-evaluate in am & prn CONDITION: CRITICAL PROGNOSIS: GUARDED CODE STATUS: DNAR Called his family to discuss goals of care, wants us to continue to treat aggressively at this time. The high probability of a clinically significant, sudden or life-threatening deterioration of the [respiratory & cardiovascular] system(s) required my full and direct attention, intervention and personal management. The aggregate critical care time was [31] minutes without overlap. Time includes spent on; [x] Data Review and interpretation [x] Patient assessment and monitoring of vital signs [x] Documentation [x] Medication orders and management Subjective Date of service: 08/02/19 Principal diagnosis: Bilateral pneumonia, severe sepsis with septic shock, encephalopathy Interval history: The patient is a 69-year-old male with CVA, hypertension, dementia, schizophrenia, alcohol use disorder was admitted to the emergency room after being brought in by EMS with progressive shortness of breath and unresponsiveness. He was noted to have agonal breathing and a faint pulse requiring CPR. Patient was intubated and brought to the hospital. It seems, patient was on home hospice. Currently, remains critically ill, intubated, on mechanical ventilation. His COVID test resulted positive 07/04/2019. Patient is seen today for: s/p cardiopulmonary arrest with ROSC;Ac hypoxemic Resp failure on MVS; Severe sepsis with Shock; Bilateral Pneumonia; POSITIVE coronavirus-19 infection. Seen and examined at bedside; 24hour events reviewed; nursing and respiratory care staff consulted; no adverse overnight events reported to me; Vitals, labs, medications, chart reviewed resting in bed; on fentanyl at 1mcg Mental status changes persist, will spontaneously open eyes Current setting AC-VC 14/500/30%/PEEP 6 - tolerating some weaning this morning but requires PS 20 to spontaneously generate tidal volumes of 300 ml RN states the PEG was blocked again this morning, and she is trying to unclog it COVID positive 07/28 Objective Vital Signs - 12hr 08/01/19 08/01/19 08/01/19 21:30 22:00 22:30 Temperature Pulse Rate 113 H 111 H 108 H Pulse Rate [ From Monitor] Respiratory 14 13 15 Rate Blood Pressure 114/59 121/69 119/70 O2 Sat by Pulse 98 98 98 Oximetry 08/01/19 08/01/19 08/01/19 23:00 23:02 23:30 Temperature Pulse Rate 108 H 109 H 108 H Pulse Rate [ From Monitor] Respiratory 14 14 15 Rate Blood Pressure 121/65 121/65 124/68 O2 Sat by Pulse 98 98 98 Oximetry 08/02/19 08/02/19 08/02/19 00:00 00:10 00:30 Temperature 98.9 F Pulse Rate 112 H 110 H 110 H Pulse Rate [ 113 H From Monitor] Respiratory 15 14 Rate Blood Pressure 122/66 122/67 127/70 O2 Sat by Pulse 98 98 98 Oximetry 08/02/19 08/02/19 08/02/19 01:00 01:30 02:00 Temperature Pulse Rate 110 H 110 H 116 H Pulse Rate [ From Monitor] Respiratory 14 14 14 Rate Blood Pressure 122/67 129/69 121/66 O2 Sat by Pulse 97 98 97 Oximetry 08/02/19 08/02/19 08/02/19 02:30 03:00 03:30 Temperature Pulse Rate 112 H 118 H 111 H Pulse Rate [ From Monitor] Respiratory 14 15 14 Rate Blood Pressure 121/67 127/69 126/70 O2 Sat by Pulse 97 94 98 Oximetry 08/02/19 08/02/19 08/02/19 04:00 04:14 04:30 Temperature 98.8 F Pulse Rate 113 H 122 H 124 H Pulse Rate [ 113 H From Monitor] Respiratory 14 14 Rate Blood Pressure 121/67 121/67 125/71 O2 Sat by Pulse 98 96 95 Oximetry 08/02/19 08/02/19 08/02/19 05:00 05:30 06:00 Temperature Pulse Rate 121 H 115 H 119 H Pulse Rate [ From Monitor] Respiratory 15 15 13 Rate Blood Pressure 140/80 132/72 123/69 O2 Sat by Pulse 95 97 91 Oximetry 08/02/19 08/02/19 08/02/19 06:30 07:00 07:30 Temperature Pulse Rate 118 H 119 H 122 H Pulse Rate [ From Monitor] Respiratory 14 16 14 Rate Blood Pressure 125/70 135/77 135/73 O2 Sat by Pulse 97 97 96 Oximetry 08/02/19 08/02/19 08/02/19 07:36 07:41 08:00 Temperature Pulse Rate 120 H 122 H 119 H Pulse Rate [ From Monitor] Respiratory 27 H 25 H Rate Blood Pressure 135/73 135/73 136/75 O2 Sat by Pulse 97 96 97 Oximetry 08/02/19 08:30 Temperature Pulse Rate 121 H Pulse Rate [ From Monitor] Respiratory 21 Rate Blood Pressure 131/71 O2 Sat by Pulse 95 Oximetry Constitutional: appears uncomfortable, other (eelderly and chronically ill looking AAM, normocep[krystina;ic with mildly increased respiratory effort at rest) Eyes: non-icteric ENT: oropharynx moist, other (ETT 24 cm Pawan) Neck: supple, no lymphadenopathy, no JVD Effort: very labored Ascultation: Bilateral: diminished breath sounds, rhonchi Percussion: Bilateral: not dull Cardiovascular: regular rate and rhythm Gastrointestinal: normoactive bowel sounds, soft, non-tender, non-distended, other (+ PEG tube with mild TF leakage) Integumentary: decubitus ulcer Extremities: no cyanosis, no edema, pink and warm, pulses normal Neurologic: unable to assess Psychiatric: other (Unable to assess re: AMS) CBC and BMP: 08/08/19 04:41 08/08/19 04:41 ABG, PT/INR, D-dimer: ABG ABG pH 7.430 pH Units (7.350-7.450) 07/27/19 05:16 ABG pCO2 48.2 mm Hg 07/27/19 05:16 ABG pO2 63.4 mm Hg (80.0-90.0) L 07/27/19 05:16 ABG O2 Saturation 92.7 % (95.0-99.0) L 07/27/19 05:16 PT/INR, D-dimer PT 16.0 Sec. (12.2-14.9) H 07/03/19 22:20 INR 1.26 (0.87-1.13) H 07/03/19 22:20 D-Dimer 1142.18 ng/mlDDU (0-234) H 07/08/19 00:45 Abnormal lab findings: Abnormal Labs 07/03/19 07/03/19 07/03/19 19:57 21:10 21:13 WBC RBC Hgb Hct MCV MCH MCHC RDW Plt Count Lymph % (Auto) [place] % (Auto) Lymph # [place] # Baso # Seg Neutrophils % Seg Neuts % (Manual) Lymphocytes % (Manual) Monocytes % (Manual) Nucleated RBC % Seg Neutrophils # Seg Neutrophils # Man Lymphocytes # (Manual) Monocytes # (Manual) PT INR D-Dimer ABG pH 7.238 L ABG pO2 210.8 H ABG HCO3 15.4 L ABG O2 Saturation 99.2 H ABG Base Excess -11.1 L ABG Hemoglobin 8.0 L Oxyhemoglobin Sodium 124 L Potassium Chloride 92.9 L Carbon Dioxide 10 L BUN 23 H Creatinine 0.5 L Glucose 118 H POC Glucose Lactic Acid Calcium 7.0 L Magnesium Iron TIBC Ferritin AST 70 H ALT 88 H Lactate Dehydrogenase Troponin T 0.032 H C-Reactive Protein Total Protein 5.0 L Albumin 1.8 L Prealbumin Cholesterol 47 L LDL Cholesterol Direct 25 L HDL Cholesterol 20 L Urine WBC (Auto) 12.0 H Vancomycin Trough Coronavirus (PCR) Crossmatch 07/03/19 07/03/19 07/03/19 22:20 22:20 22:20 WBC 30.5 H RBC 2.96 L Hgb 7.7 L Hct 23.9 L MCV 81 L MCH 26 L MCHC RDW 18.6 H Plt Count 459 H Lymph % (Auto) [place] % (Auto) Lymph # [place] # Baso # Seg Neutrophils % Seg Neuts % (Manual) 93.0 H Lymphocytes % (Manual) 0.5 L Monocytes % (Manual) Nucleated RBC % Seg Neutrophils # Seg Neutrophils # Man 28.4 H Lymphocytes # (Manual) 0.2 L Monocytes # (Manual) PT 16.0 H INR 1.26 H D-Dimer ABG pH ABG pO2 ABG HCO3 ABG O2 Saturation ABG Base Excess ABG Hemoglobin Oxyhemoglobin Sodium Potassium Chloride Carbon Dioxide BUN Creatinine Glucose POC Glucose Lactic Acid 6.90 H* Calcium Magnesium Iron TIBC Ferritin AST ALT Lactate Dehydrogenase Troponin T C-Reactive Protein Total Protein Albumin Prealbumin Cholesterol LDL Cholesterol Direct HDL Cholesterol Urine WBC (Auto) Vancomycin Trough Coronavirus (PCR) Crossmatch 07/03/19 07/04/19 07/04/19 23:58 05:15 07:05 WBC 17.1 H RBC 3.22 L Hgb 8.3 L Hct 25.4 L MCV 79 L MCH 26 L MCHC RDW 18.6 H Plt Count Lymph % (Auto) [place] % (Auto) Lymph # [place] # Baso # Seg Neutrophils % Seg Neuts % (Manual) 74.0 H Lymphocytes % (Manual) 0 L Monocytes % (Manual) Nucleated RBC % Seg Neutrophils # Seg Neutrophils # Man 12.7 H Lymphocytes # (Manual) 0.0 L Monocytes # (Manual) PT INR D-Dimer ABG pH 7.310 L ABG pO2 73.2 L ABG HCO3 17.8 L ABG O2 Saturation 93.8 L ABG Base Excess -7.7 L ABG Hemoglobin 9.6 L Oxyhemoglobin 92.3 L Sodium Potassium Chloride Carbon Dioxide BUN Creatinine Glucose POC Glucose Lactic Acid 7.10 H* Calcium Magnesium Iron TIBC Ferritin AST ALT Lactate Dehydrogenase Troponin T C-Reactive Protein Total Protein Albumin Prealbumin Cholesterol LDL Cholesterol Direct HDL Cholesterol Urine WBC (Auto) Vancomycin Trough Coronavirus (PCR) Crossmatch 07/04/19 07/04/19 07/04/19 07:05 07:05 07:05 WBC RBC Hgb Hct MCV MCH MCHC RDW Plt Count Lymph % (Auto) [place] % (Auto) Lymph # [place] # Baso # Seg Neutrophils % Seg Neuts % (Manual) Lymphocytes % (Manual) Monocytes % (Manual) Nucleated RBC % Seg Neutrophils # Seg Neutrophils # Man Lymphocytes # (Manual) Monocytes # (Manual) PT INR D-Dimer ABG pH ABG pO2 ABG HCO3 ABG O2 Saturation ABG Base Excess ABG Hemoglobin Oxyhemoglobin Sodium 120 L Potassium 5.1 H Chloride 90.0 L Carbon Dioxide 14 L BUN 26 H Creatinine 0.5 L Glucose POC Glucose Lactic Acid 3.30 H* Calcium 8.0 L Magnesium Iron 9 L TIBC 97 L Ferritin AST 73 H ALT 91 H Lactate Dehydrogenase Troponin T C-Reactive Protein Total Protein 5.5 L Albumin 2.0 L Prealbumin Cholesterol LDL Cholesterol Direct HDL Cholesterol Urine WBC (Auto) Vancomycin Trough Coronavirus (PCR) Crossmatch 07/04/19 07/04/19 07/04/19 09:39 09:39 09:39 WBC RBC Hgb Hct MCV MCH MCHC RDW Plt Count Lymph % (Auto) [place] % (Auto) Lymph # [place] # Baso # Seg Neutrophils % Seg Neuts % (Manual) Lymphocytes % (Manual) Monocytes % (Manual) Nucleated RBC % Seg Neutrophils # Seg Neutrophils # Man Lymphocytes # (Manual) Monocytes # (Manual) PT INR D-Dimer 1419.14 H ABG pH ABG pO2 ABG HCO3 ABG O2 Saturation ABG Base Excess ABG Hemoglobin Oxyhemoglobin Sodium Potassium Chloride Carbon Dioxide BUN Creatinine Glucose POC Glucose Lactic Acid Calcium Magnesium Iron TIBC Ferritin 1719.0 H AST ALT Lactate Dehydrogenase 234 H Troponin T C-Reactive Protein 15.50 H Total Protein Albumin Prealbumin Cholesterol LDL Cholesterol Direct HDL Cholesterol Urine WBC (Auto) Vancomycin Trough Coronavirus (PCR) Crossmatch 07/04/19 07/04/19 07/04/19 10:09 18:08 18:28 WBC RBC Hgb Hct MCV MCH MCHC RDW Plt Count Lymph % (Auto) [place] % (Auto) Lymph # [place] # Baso # Seg Neutrophils % Seg Neuts % (Manual) Lymphocytes % (Manual) Monocytes % (Manual) Nucleated RBC % Seg Neutrophils # Seg Neutrophils # Man Lymphocytes # (Manual) Monocytes # (Manual) PT INR D-Dimer ABG pH ABG pO2 ABG HCO3 ABG O2 Saturation ABG Base Excess ABG Hemoglobin Oxyhemoglobin Sodium 117 L* Potassium 5.6 H Chloride 90.3 L Carbon Dioxide 16 L BUN 28 H Creatinine 0.5 L Glucose 58 L POC Glucose 65 L Lactic Acid Calcium 8.2 L Magnesium Iron TIBC Ferritin AST ALT Lactate Dehydrogenase Troponin T C-Reactive Protein Total Protein Albumin Prealbumin Cholesterol LDL Cholesterol Direct HDL Cholesterol Urine WBC (Auto) Vancomycin Trough Coronavirus (PCR) Positive A Crossmatch 07/04/19 07/04/19 07/04/19 23:45 Unknown Unknown WBC RBC Hgb Hct MCV MCH MCHC RDW Plt Count Lymph % (Auto) [place] % (Auto) Lymph # [place] # Baso # Seg Neutrophils % Seg Neuts % (Manual) Lymphocytes % (Manual) Monocytes % (Manual) Nucleated RBC % Seg Neutrophils # Seg Neutrophils # Man Lymphocytes # (Manual) Monocytes # (Manual) PT INR D-Dimer 759.77 H ABG pH ABG pO2 ABG HCO3 ABG O2 Saturation ABG Base Excess ABG Hemoglobin Oxyhemoglobin Sodium 122 L Potassium Chloride 93.0 L Carbon Dioxide 19 L BUN 27 H Creatinine 0.5 L Glucose POC Glucose Lactic Acid Calcium 8.3 L Magnesium Iron TIBC Ferritin 1301.0 H AST ALT Lactate Dehydrogenase Troponin T C-Reactive Protein Total Protein Albumin Prealbumin Cholesterol LDL Cholesterol Direct HDL Cholesterol Urine WBC (Auto) Vancomycin Trough Coronavirus (PCR) Crossmatch 07/04/19 07/05/19 07/05/19 Unknown 03:20 04:00 WBC RBC Hgb Hct MCV MCH MCHC RDW Plt Count Lymph % (Auto) [place] % (Auto) Lymph # [place] # Baso # Seg Neutrophils % Seg Neuts % (Manual) Lymphocytes % (Manual) Monocytes % (Manual) Nucleated RBC % Seg Neutrophils # Seg Neutrophils # Man Lymphocytes # (Manual) Monocytes # (Manual) PT INR D-Dimer ABG pH ABG pO2 60.6 L ABG HCO3 ABG O2 Saturation 93.5 L ABG Base Excess -2.4 L ABG Hemoglobin 6.9 L Oxyhemoglobin 92.0 L Sodium 125 L Potassium Chloride 92.6 L Carbon Dioxide 19 L BUN 24 H Creatinine 0.6 L Glucose POC Glucose Lactic Acid Calcium 8.2 L Magnesium 1.40 L Iron TIBC Ferritin AST ALT Lactate Dehydrogenase 242 H Troponin T C-Reactive Protein 16.70 H Total Protein Albumin Prealbumin Cholesterol LDL Cholesterol Direct HDL Cholesterol Urine WBC (Auto) Vancomycin Trough Coronavirus (PCR) Crossmatch 07/05/19 07/05/19 07/05/19 10:11 16:15 17:54 WBC 46.4 H* RBC 2.77 L Hgb 7.2 L Hct 21.9 L MCV 79 L MCH 26 L MCHC RDW 19.0 H Plt Count Lymph % (Auto) [place] % (Auto) Lymph # [place] # Baso # Seg Neutrophils % Seg Neuts % (Manual) 82.0 H Lymphocytes % (Manual) 1.0 L Monocytes % (Manual) Nucleated RBC % Seg Neutrophils # Seg Neutrophils # Man 38.0 H Lymphocytes # (Manual) 0.5 L Monocytes # (Manual) PT INR D-Dimer ABG pH ABG pO2 ABG HCO3 ABG O2 Saturation ABG Base Excess ABG Hemoglobin Oxyhemoglobin Sodium Potassium Chloride Carbon Dioxide BUN Creatinine Glucose POC Glucose 69 L Lactic Acid Calcium Magnesium Iron TIBC Ferritin AST ALT Lactate Dehydrogenase Troponin T C-Reactive Protein Total Protein Albumin Prealbumin Cholesterol LDL Cholesterol Direct HDL Cholesterol Urine WBC (Auto) Vancomycin Trough 23.2 H Coronavirus (PCR) Crossmatch 07/05/19 07/06/19 07/06/19 19:58 00:27 00:27 WBC RBC Hgb Hct MCV MCH MCHC RDW Plt Count Lymph % (Auto) [place] % (Auto) Lymph # [place] # Baso # Seg Neutrophils % Seg Neuts % (Manual) Lymphocytes % (Manual) Monocytes % (Manual) Nucleated RBC % Seg Neutrophils # Seg Neutrophils # Man Lymphocytes # (Manual) Monocytes # (Manual) PT INR D-Dimer 1333.22 H ABG pH ABG pO2 ABG HCO3 ABG O2 Saturation ABG Base Excess ABG Hemoglobin Oxyhemoglobin Sodium 127 L Potassium Chloride Carbon Dioxide BUN Creatinine Glucose POC Glucose Lactic Acid Calcium Magnesium Iron TIBC Ferritin 977.1 H AST ALT Lactate Dehydrogenase Troponin T C-Reactive Protein Total Protein Albumin Prealbumin Cholesterol LDL Cholesterol Direct HDL Cholesterol Urine WBC (Auto) Vancomycin Trough Coronavirus (PCR) Crossmatch 07/06/19 07/06/19 07/06/19 00:27 02:00 02:56 WBC RBC Hgb Hct MCV MCH MCHC RDW Plt Count Lymph % (Auto) [place] % (Auto) Lymph # [place] # Baso # Seg Neutrophils % Seg Neuts % (Manual) Lymphocytes % (Manual) Monocytes % (Manual) Nucleated RBC % Seg Neutrophils # Seg Neutrophils # Man Lymphocytes # (Manual) Monocytes # (Manual) PT INR D-Dimer ABG pH ABG pO2 70.3 L ABG HCO3 ABG O2 Saturation 94.8 L ABG Base Excess ABG Hemoglobin 8.0 L Oxyhemoglobin 93.2 L Sodium Potassium Chloride Carbon Dioxide BUN Creatinine Glucose POC Glucose 117 H Lactic Acid Calcium Magnesium Iron TIBC Ferritin AST ALT Lactate Dehydrogenase 236 H Troponin T C-Reactive Protein 22.90 H Total Protein Albumin Prealbumin Cholesterol LDL Cholesterol Direct HDL Cholesterol Urine WBC (Auto) Vancomycin Trough Coronavirus (PCR) Crossmatch 07/06/19 07/06/19 07/06/19 03:49 03:49 07:40 WBC 38.8 H RBC 2.51 L Hgb 6.7 L Hct 19.9 L* MCV 79 L MCH 27 L MCHC RDW 19.2 H Plt Count Lymph % (Auto) [place] % (Auto) Lymph # [place] # Baso # Seg Neutrophils % Seg Neuts % (Manual) 90.5 H Lymphocytes % (Manual) 1.0 L Monocytes % (Manual) Nucleated RBC % Seg Neutrophils # Seg Neutrophils # Man 35.1 H Lymphocytes # (Manual) 0.4 L Monocytes # (Manual) PT INR D-Dimer ABG pH ABG pO2 ABG HCO3 ABG O2 Saturation ABG Base Excess ABG Hemoglobin Oxyhemoglobin Sodium 131 L Potassium Chloride 96.9 L Carbon Dioxide 18 L BUN 23 H Creatinine 0.5 L Glucose POC Glucose Lactic Acid Calcium 8.0 L Magnesium Iron TIBC Ferritin AST ALT Lactate Dehydrogenase Troponin T C-Reactive Protein Total Protein Albumin Prealbumin Cholesterol LDL Cholesterol Direct HDL Cholesterol Urine WBC (Auto) Vancomycin Trough Coronavirus (PCR) Crossmatch See Detail 07/06/19 07/06/19 07/06/19 12:38 14:39 20:00 WBC RBC Hgb Hct MCV MCH MCHC RDW Plt Count Lymph % (Auto) [place] % (Auto) Lymph # [place] # Baso # Seg Neutrophils % Seg Neuts % (Manual) Lymphocytes % (Manual) Monocytes % (Manual) Nucleated RBC % Seg Neutrophils # Seg Neutrophils # Man Lymphocytes # (Manual) Monocytes # (Manual) PT INR D-Dimer ABG pH ABG pO2 ABG HCO3 ABG O2 Saturation ABG Base Excess ABG Hemoglobin Oxyhemoglobin Sodium Potassium Chloride Carbon Dioxide BUN Creatinine Glucose POC Glucose 112 H 111 H 140 H Lactic Acid Calcium Magnesium Iron TIBC Ferritin AST ALT Lactate Dehydrogenase Troponin T C-Reactive Protein Total Protein Albumin Prealbumin Cholesterol LDL Cholesterol Direct HDL Cholesterol Urine WBC (Auto) Vancomycin Trough Coronavirus (PCR) Crossmatch 07/06/19 07/06/19 07/07/19 22:43 22:56 02:20 WBC RBC Hgb 7.9 L Hct 23.1 L MCV MCH MCHC RDW Plt Count Lymph % (Auto) [place] % (Auto) Lymph # [place] # Baso # Seg Neutrophils % Seg Neuts % (Manual) Lymphocytes % (Manual) Monocytes % (Manual) Nucleated RBC % Seg Neutrophils # Seg Neutrophils # Man Lymphocytes # (Manual) Monocytes # (Manual) PT INR D-Dimer ABG pH ABG pO2 ABG HCO3 ABG O2 Saturation ABG Base Excess ABG Hemoglobin Oxyhemoglobin Sodium Potassium Chloride Carbon Dioxide BUN Creatinine Glucose POC Glucose 122 H 149 H Lactic Acid Calcium Magnesium Iron TIBC Ferritin AST ALT Lactate Dehydrogenase Troponin T C-Reactive Protein Total Protein Albumin Prealbumin Cholesterol LDL Cholesterol Direct HDL Cholesterol Urine WBC (Auto) Vancomycin Trough Coronavirus (PCR) Crossmatch 07/07/19 07/07/19 07/07/19 04:35 05:27 05:34 WBC 23.1 H RBC 3.00 L Hgb 8.1 L Hct 24.2 L MCV 81 L MCH 27 L MCHC RDW 20.6 H Plt Count Lymph % (Auto) [place] % (Auto) Lymph # [place] # Baso # Seg Neutrophils % Seg Neuts % (Manual) 90.0 H Lymphocytes % (Manual) 2.0 L Monocytes % (Manual) Nucleated RBC % Seg Neutrophils # Seg Neutrophils # Man 20.8 H Lymphocytes # (Manual) 0.5 L Monocytes # (Manual) PT INR D-Dimer ABG pH ABG pO2 65.8 L ABG HCO3 ABG O2 Saturation 92.2 L ABG Base Excess ABG Hemoglobin 8.3 L Oxyhemoglobin 90.6 L Sodium Potassium Chloride Carbon Dioxide BUN Creatinine Glucose POC Glucose 132 H Lactic Acid Calcium Magnesium Iron TIBC Ferritin AST ALT Lactate Dehydrogenase Troponin T C-Reactive Protein Total Protein Albumin Prealbumin Cholesterol LDL Cholesterol Direct HDL Cholesterol Urine WBC (Auto) Vancomycin Trough Coronavirus (PCR) Crossmatch 07/07/19 07/07/19 07/07/19 05:34 11:50 15:58 WBC RBC Hgb 8.1 L Hct 24.2 L MCV MCH MCHC RDW Plt Count Lymph % (Auto) [place] % (Auto) Lymph # [place] # Baso # Seg Neutrophils % Seg Neuts % (Manual) Lymphocytes % (Manual) Monocytes % (Manual) Nucleated RBC % Seg Neutrophils # Seg Neutrophils # Man Lymphocytes # (Manual) Monocytes # (Manual) PT INR D-Dimer ABG pH ABG pO2 ABG HCO3 ABG O2 Saturation ABG Base Excess ABG Hemoglobin Oxyhemoglobin Sodium 135 L Potassium 3.3 L Chloride Carbon Dioxide 20 L BUN 27 H Creatinine 0.6 L Glucose 121 H POC Glucose 123 H Lactic Acid Calcium 8.0 L Magnesium Iron TIBC Ferritin AST ALT Lactate Dehydrogenase Troponin T C-Reactive Protein Total Protein Albumin Prealbumin Cholesterol LDL Cholesterol Direct HDL Cholesterol Urine WBC (Auto) Vancomycin Trough Coronavirus (PCR) Crossmatch 07/07/19 07/07/19 07/07/19 17:42 22:00 23:53 WBC RBC Hgb 8.0 L Hct 23.4 L MCV MCH MCHC RDW Plt Count Lymph % (Auto) [place] % (Auto) Lymph # [place] # Baso # Seg Neutrophils % Seg Neuts % (Manual) Lymphocytes % (Manual) Monocytes % (Manual) Nucleated RBC % Seg Neutrophils # Seg Neutrophils # Man Lymphocytes # (Manual) Monocytes # (Manual) PT INR D-Dimer ABG pH ABG pO2 ABG HCO3 ABG O2 Saturation ABG Base Excess ABG Hemoglobin Oxyhemoglobin Sodium Potassium Chloride Carbon Dioxide BUN Creatinine Glucose POC Glucose 107 H 117 H Lactic Acid Calcium Magnesium Iron TIBC Ferritin AST ALT Lactate Dehydrogenase Troponin T C-Reactive Protein Total Protein Albumin Prealbumin Cholesterol LDL Cholesterol Direct HDL Cholesterol Urine WBC (Auto) Vancomycin Trough Coronavirus (PCR) Crossmatch 07/08/19 07/08/19 07/08/19 00:45 00:45 00:45 WBC RBC Hgb Hct MCV MCH MCHC RDW Plt Count Lymph % (Auto) [place] % (Auto) Lymph # [place] # Baso # Seg Neutrophils % Seg Neuts % (Manual) Lymphocytes % (Manual) Monocytes % (Manual) Nucleated RBC % Seg Neutrophils # Seg Neutrophils # Man Lymphocytes # (Manual) Monocytes # (Manual) PT INR D-Dimer 1142.18 H ABG pH ABG pO2 ABG HCO3 ABG O2 Saturation ABG Base Excess ABG Hemoglobin Oxyhemoglobin Sodium Potassium Chloride Carbon Dioxide BUN Creatinine Glucose POC Glucose Lactic Acid Calcium Magnesium Iron TIBC Ferritin 839.0 H AST ALT Lactate Dehydrogenase 253 H Troponin T C-Reactive Protein 18.90 H Total Protein Albumin Prealbumin Cholesterol LDL Cholesterol Direct HDL Cholesterol Urine WBC (Auto) Vancomycin Trough Coronavirus (PCR) Crossmatch 07/08/19 07/08/19 07/08/19 04:30 05:11 12:02 WBC RBC Hgb Hct MCV MCH MCHC RDW Plt Count Lymph % (Auto) [place] % (Auto) Lymph # [place] # Baso # Seg Neutrophils % Seg Neuts % (Manual) Lymphocytes % (Manual) Monocytes % (Manual) Nucleated RBC % Seg Neutrophils # Seg Neutrophils # Man Lymphocytes # (Manual) Monocytes # (Manual) PT INR D-Dimer ABG pH ABG pO2 66.0 L ABG HCO3 ABG O2 Saturation 92.3 L ABG Base Excess ABG Hemoglobin 7.7 L Oxyhemoglobin 90.7 L Sodium Potassium Chloride Carbon Dioxide BUN Creatinine Glucose POC Glucose 108 H 153 H Lactic Acid Calcium Magnesium Iron TIBC Ferritin AST ALT Lactate Dehydrogenase Troponin T C-Reactive Protein Total Protein Albumin Prealbumin Cholesterol LDL Cholesterol Direct HDL Cholesterol Urine WBC (Auto) Vancomycin Trough Coronavirus (PCR) Crossmatch 07/08/19 07/08/19 07/08/19 16:15 18:22 23:35 WBC RBC Hgb Hct MCV MCH MCHC RDW Plt Count Lymph % (Auto) [place] % (Auto) Lymph # [place] # Baso # Seg Neutrophils % Seg Neuts % (Manual) Lymphocytes % (Manual) Monocytes % (Manual) Nucleated RBC % Seg Neutrophils # Seg Neutrophils # Man Lymphocytes # (Manual) Monocytes # (Manual) PT INR D-Dimer ABG pH ABG pO2 ABG HCO3 ABG O2 Saturation ABG Base Excess ABG Hemoglobin Oxyhemoglobin Sodium 134 L Potassium 3.3 L Chloride Carbon Dioxide 21 L BUN 27 H Creatinine 0.6 L Glucose 146 H POC Glucose 134 H 133 H Lactic Acid Calcium Magnesium Iron TIBC Ferritin AST ALT Lactate Dehydrogenase Troponin T C-Reactive Protein Total Protein Albumin Prealbumin Cholesterol LDL Cholesterol Direct HDL Cholesterol Urine WBC (Auto) Vancomycin Trough Coronavirus (PCR) Crossmatch 07/09/19 07/09/19 07/09/19 04:30 04:30 05:00 WBC 18.9 H RBC 2.77 L Hgb 7.4 L Hct 22.8 L MCV 82 L MCH 27 L MCHC RDW 20.9 H Plt Count 130 L Lymph % (Auto) [place] % (Auto) Lymph # [place] # Baso # Seg Neutrophils % Seg Neuts % (Manual) 84.0 H Lymphocytes % (Manual) 0 L Monocytes % (Manual) Nucleated RBC % Seg Neutrophils # Seg Neutrophils # Man 15.9 H Lymphocytes # (Manual) 0.0 L Monocytes # (Manual) PT INR D-Dimer ABG pH ABG pO2 ABG HCO3 ABG O2 Saturation ABG Base Excess ABG Hemoglobin Oxyhemoglobin Sodium Potassium 3.1 L Chloride Carbon Dioxide BUN 26 H Creatinine 0.5 L Glucose 125 H POC Glucose 155 H Lactic Acid Calcium Magnesium Iron TIBC Ferritin AST ALT Lactate Dehydrogenase Troponin T C-Reactive Protein Total Protein Albumin Prealbumin Cholesterol LDL Cholesterol Direct HDL Cholesterol Urine WBC (Auto) Vancomycin Trough Coronavirus (PCR) Crossmatch 07/09/19 07/09/19 07/09/19 05:55 12:22 17:50 WBC RBC Hgb Hct MCV MCH MCHC RDW Plt Count Lymph % (Auto) [place] % (Auto) Lymph # [place] # Baso # Seg Neutrophils % Seg Neuts % (Manual) Lymphocytes % (Manual) Monocytes % (Manual) Nucleated RBC % Seg Neutrophils # Seg Neutrophils # Man Lymphocytes # (Manual) Monocytes # (Manual) PT INR D-Dimer ABG pH ABG pO2 62.8 L ABG HCO3 ABG O2 Saturation ABG Base Excess ABG Hemoglobin 6.1 L Oxyhemoglobin 93.9 L Sodium Potassium Chloride Carbon Dioxide BUN Creatinine Glucose POC Glucose 115 H 133 H Lactic Acid Calcium Magnesium Iron TIBC Ferritin AST ALT Lactate Dehydrogenase Troponin T C-Reactive Protein Total Protein Albumin Prealbumin Cholesterol LDL Cholesterol Direct HDL Cholesterol Urine WBC (Auto) Vancomycin Trough Coronavirus (PCR) Crossmatch 07/10/19 07/10/19 07/10/19 00:38 04:00 04:00 WBC RBC Hgb Hct MCV MCH MCHC RDW Plt Count Lymph % (Auto) [place] % (Auto) Lymph # [place] # Baso # Seg Neutrophils % Seg Neuts % (Manual) Lymphocytes % (Manual) Monocytes % (Manual) Nucleated RBC % Seg Neutrophils # Seg Neutrophils # Man Lymphocytes # (Manual) Monocytes # (Manual) PT INR D-Dimer ABG pH ABG pO2 ABG HCO3 ABG O2 Saturation ABG Base Excess ABG Hemoglobin Oxyhemoglobin Sodium Potassium Chloride 107.9 H Carbon Dioxide BUN 26 H Creatinine 0.4 L Glucose 137 H POC Glucose 122 H Lactic Acid Calcium Magnesium 1.50 L Iron TIBC Ferritin AST ALT Lactate Dehydrogenase 277 H Troponin T C-Reactive Protein 15.10 H Total Protein Albumin Prealbumin Cholesterol LDL Cholesterol Direct HDL Cholesterol Urine WBC (Auto) Vancomycin Trough Coronavirus (PCR) Crossmatch 07/10/19 07/10/19 07/10/19 04:07 05:21 17:25 WBC RBC Hgb Hct MCV MCH MCHC RDW Plt Count Lymph % (Auto) [place] % (Auto) Lymph # [place] # Baso # Seg Neutrophils % Seg Neuts % (Manual) Lymphocytes % (Manual) Monocytes % (Manual) Nucleated RBC % Seg Neutrophils # Seg Neutrophils # Man Lymphocytes # (Manual) Monocytes # (Manual) PT INR D-Dimer ABG pH ABG pO2 65.6 L ABG HCO3 26.3 H ABG O2 Saturation ABG Base Excess ABG Hemoglobin 6.7 L Oxyhemoglobin Sodium Potassium Chloride Carbon Dioxide BUN Creatinine Glucose POC Glucose 144 H 113 H Lactic Acid Calcium Magnesium Iron TIBC Ferritin AST ALT Lactate Dehydrogenase Troponin T C-Reactive Protein Total Protein Albumin Prealbumin Cholesterol LDL Cholesterol Direct HDL Cholesterol Urine WBC (Auto) Vancomycin Trough Coronavirus (PCR) Crossmatch 07/11/19 07/11/19 07/11/19 00:07 05:14 05:25 WBC RBC Hgb Hct MCV MCH MCHC RDW Plt Count Lymph % (Auto) [place] % (Auto) Lymph # [place] # Baso # Seg Neutrophils % Seg Neuts % (Manual) Lymphocytes % (Manual) Monocytes % (Manual) Nucleated RBC % Seg Neutrophils # Seg Neutrophils # Man Lymphocytes # (Manual) Monocytes # (Manual) PT INR D-Dimer ABG pH ABG pO2 ABG HCO3 ABG O2 Saturation ABG Base Excess ABG Hemoglobin 5.8 L Oxyhemoglobin Sodium Potassium Chloride 108.0 H Carbon Dioxide BUN 26 H Creatinine 0.4 L Glucose 110 H POC Glucose 121 H Lactic Acid Calcium Magnesium Iron TIBC Ferritin AST ALT Lactate Dehydrogenase Troponin T C-Reactive Protein Total Protein Albumin Prealbumin Cholesterol LDL Cholesterol Direct HDL Cholesterol Urine WBC (Auto) Vancomycin Trough Coronavirus (PCR) Crossmatch 07/11/19 07/11/19 07/11/19 12:27 18:00 23:42 WBC RBC Hgb Hct MCV MCH MCHC RDW Plt Count Lymph % (Auto) [place] % (Auto) Lymph # [place] # Baso # Seg Neutrophils % Seg Neuts % (Manual) Lymphocytes % (Manual) Monocytes % (Manual) Nucleated RBC % Seg Neutrophils # Seg Neutrophils # Man Lymphocytes # (Manual) Monocytes # (Manual) PT INR D-Dimer ABG pH ABG pO2 ABG HCO3 ABG O2 Saturation ABG Base Excess ABG Hemoglobin Oxyhemoglobin Sodium Potassium Chloride Carbon Dioxide BUN Creatinine Glucose POC Glucose 158 H 141 H 142 H Lactic Acid Calcium Magnesium Iron TIBC Ferritin AST ALT Lactate Dehydrogenase Troponin T C-Reactive Protein Total Protein Albumin Prealbumin Cholesterol LDL Cholesterol Direct HDL Cholesterol Urine WBC (Auto) Vancomycin Trough Coronavirus (PCR) Crossmatch 07/12/19 07/12/19 07/12/19 04:46 04:46 05:23 WBC 23.6 H RBC 2.51 L Hgb 6.7 L Hct 20.8 L MCV 83 L MCH 27 L MCHC RDW 20.3 H Plt Count Lymph % (Auto) [place] % (Auto) Lymph # [place] # Baso # Seg Neutrophils % Seg Neuts % (Manual) 94.0 H Lymphocytes % (Manual) 4.0 L Monocytes % (Manual) Nucleated RBC % Seg Neutrophils # Seg Neutrophils # Man 22.2 H Lymphocytes # (Manual) 0.9 L Monocytes # (Manual) PT INR D-Dimer ABG pH ABG pO2 ABG HCO3 ABG O2 Saturation ABG Base Excess ABG Hemoglobin Oxyhemoglobin Sodium Potassium Chloride 107.1 H Carbon Dioxide BUN 25 H Creatinine 0.4 L Glucose 122 H POC Glucose 118 H Lactic Acid Calcium Magnesium Iron TIBC Ferritin AST ALT Lactate Dehydrogenase Troponin T C-Reactive Protein Total Protein Albumin Prealbumin Cholesterol LDL Cholesterol Direct HDL Cholesterol Urine WBC (Auto) Vancomycin Trough Coronavirus (PCR) Crossmatch 07/12/19 07/12/19 07/12/19 08:49 11:36 18:15 WBC RBC Hgb Hct MCV MCH MCHC RDW Plt Count Lymph % (Auto) [place] % (Auto) Lymph # [place] # Baso # Seg Neutrophils % Seg Neuts % (Manual) Lymphocytes % (Manual) Monocytes % (Manual) Nucleated RBC % Seg Neutrophils # Seg Neutrophils # Man Lymphocytes # (Manual) Monocytes # (Manual) PT INR D-Dimer ABG pH ABG pO2 ABG HCO3 ABG O2 Saturation ABG Base Excess ABG Hemoglobin Oxyhemoglobin Sodium Potassium Chloride Carbon Dioxide BUN Creatinine Glucose POC Glucose 124 H 110 H Lactic Acid Calcium Magnesium Iron TIBC Ferritin AST ALT Lactate Dehydrogenase Troponin T C-Reactive Protein Total Protein Albumin Prealbumin Cholesterol LDL Cholesterol Direct HDL Cholesterol Urine WBC (Auto) Vancomycin Trough Coronavirus (PCR) Crossmatch See Detail 07/12/19 07/13/19 07/13/19 23:16 05:26 06:50 WBC 23.9 H RBC 2.58 L Hgb 6.9 L Hct 21.5 L MCV 83 L MCH 27 L MCHC RDW 19.0 H Plt Count Lymph % (Auto) [place] % (Auto) Lymph # [place] # Baso # Seg Neutrophils % Seg Neuts % (Manual) 96.0 H Lymphocytes % (Manual) 3.0 L Monocytes % (Manual) Nucleated RBC % Seg Neutrophils # Seg Neutrophils # Man 22.9 H Lymphocytes # (Manual) 0.7 L Monocytes # (Manual) PT INR D-Dimer ABG pH ABG pO2 ABG HCO3 ABG O2 Saturation ABG Base Excess ABG Hemoglobin Oxyhemoglobin Sodium Potassium Chloride Carbon Dioxide BUN Creatinine Glucose POC Glucose 108 H 126 H Lactic Acid Calcium Magnesium Iron TIBC Ferritin AST ALT Lactate Dehydrogenase Troponin T C-Reactive Protein Total Protein Albumin Prealbumin Cholesterol LDL Cholesterol Direct HDL Cholesterol Urine WBC (Auto) Vancomycin Trough Coronavirus (PCR) Crossmatch 07/13/19 07/13/19 07/13/19 06:50 12:38 18:05 WBC RBC Hgb Hct MCV MCH MCHC RDW Plt Count Lymph % (Auto) [place] % (Auto) Lymph # [place] # Baso # Seg Neutrophils % Seg Neuts % (Manual) Lymphocytes % (Manual) Monocytes % (Manual) Nucleated RBC % Seg Neutrophils # Seg Neutrophils # Man Lymphocytes # (Manual) Monocytes # (Manual) PT INR D-Dimer ABG pH ABG pO2 ABG HCO3 ABG O2 Saturation ABG Base Excess ABG Hemoglobin Oxyhemoglobin Sodium Potassium Chloride Carbon Dioxide BUN 33 H Creatinine 0.5 L Glucose 136 H POC Glucose 164 H 145 H Lactic Acid Calcium Magnesium Iron TIBC Ferritin AST ALT Lactate Dehydrogenase Troponin T C-Reactive Protein Total Protein Albumin Prealbumin Cholesterol LDL Cholesterol Direct HDL Cholesterol Urine WBC (Auto) Vancomycin Trough Coronavirus (PCR) Crossmatch 07/13/19 07/14/19 07/14/19 18:30 00:21 04:40 WBC 22.9 H RBC 2.45 L Hgb 6.6 L Hct 21.1 L MCV MCH 27 L MCHC 31 L RDW 19.2 H Plt Count Lymph % (Auto) [place] % (Auto) Lymph # [place] # Baso # Seg Neutrophils % Seg Neuts % (Manual) 91.0 H Lymphocytes % (Manual) 7.0 L Monocytes % (Manual) Nucleated RBC % Seg Neutrophils # Seg Neutrophils # Man 20.8 H Lymphocytes # (Manual) Monocytes # (Manual) PT INR D-Dimer ABG pH ABG pO2 58.1 L ABG HCO3 ABG O2 Saturation 88.7 L ABG Base Excess ABG Hemoglobin 7.8 L Oxyhemoglobin 86.8 L Sodium Potassium Chloride Carbon Dioxide BUN Creatinine Glucose POC Glucose 118 H Lactic Acid Calcium Magnesium Iron TIBC Ferritin AST ALT Lactate Dehydrogenase Troponin T C-Reactive Protein Total Protein Albumin Prealbumin Cholesterol LDL Cholesterol Direct HDL Cholesterol Urine WBC (Auto) Vancomycin Trough Coronavirus (PCR) Crossmatch 07/14/19 07/14/19 07/14/19 04:40 05:38 05:45 WBC RBC Hgb Hct MCV MCH MCHC RDW Plt Count Lymph % (Auto) [place] % (Auto) Lymph # [place] # Baso # Seg Neutrophils % Seg Neuts % (Manual) Lymphocytes % (Manual) Monocytes % (Manual) Nucleated RBC % Seg Neutrophils # Seg Neutrophils # Man Lymphocytes # (Manual) Monocytes # (Manual) PT INR D-Dimer ABG pH 7.230 L ABG pO2 72.1 L ABG HCO3 ABG O2 Saturation 89.3 L ABG Base Excess -2.7 L ABG Hemoglobin 6.7 L Oxyhemoglobin 87.7 L Sodium Potassium Chloride 107.4 H Carbon Dioxide BUN 45 H Creatinine Glucose 101 H POC Glucose 154 H Lactic Acid Calcium Magnesium Iron TIBC Ferritin AST ALT Lactate Dehydrogenase Troponin T C-Reactive Protein Total Protein Albumin Prealbumin Cholesterol LDL Cholesterol Direct HDL Cholesterol Urine WBC (Auto) Vancomycin Trough Coronavirus (PCR) Crossmatch 07/14/19 07/14/19 07/14/19 12:25 18:20 19:01 WBC 22.4 H RBC 2.70 L Hgb 7.5 L Hct 23.3 L MCV MCH MCHC RDW 19.5 H Plt Count Lymph % (Auto) [place] % (Auto) Lymph # [place] # Baso # Seg Neutrophils % Seg Neuts % (Manual) Lymphocytes % (Manual) Monocytes % (Manual) Nucleated RBC % Seg Neutrophils # Seg Neutrophils # Man Lymphocytes # (Manual) Monocytes # (Manual) PT INR D-Dimer ABG pH ABG pO2 ABG HCO3 ABG O2 Saturation ABG Base Excess ABG Hemoglobin Oxyhemoglobin Sodium Potassium Chloride Carbon Dioxide BUN Creatinine Glucose POC Glucose 136 H 131 H Lactic Acid Calcium Magnesium Iron TIBC Ferritin AST ALT Lactate Dehydrogenase Troponin T C-Reactive Protein Total Protein Albumin Prealbumin Cholesterol LDL Cholesterol Direct HDL Cholesterol Urine WBC (Auto) Vancomycin Trough Coronavirus (PCR) Crossmatch 07/15/19 07/15/19 07/15/19 00:17 04:35 05:18 WBC 20.6 H RBC 2.41 L Hgb 6.8 L Hct 20.7 L MCV MCH MCHC RDW 20.2 H Plt Count Lymph % (Auto) [place] % (Auto) Lymph # [place] # Baso # Seg Neutrophils % Seg Neuts % (Manual) 92.0 H Lymphocytes % (Manual) 5.0 L Monocytes % (Manual) Nucleated RBC % Seg Neutrophils # Seg Neutrophils # Man 19.0 H Lymphocytes # (Manual) 1.0 L Monocytes # (Manual) PT INR D-Dimer ABG pH 7.342 L ABG pO2 ABG HCO3 ABG O2 Saturation ABG Base Excess -3.1 L ABG Hemoglobin 7.2 L Oxyhemoglobin 94.9 L Sodium Potassium Chloride Carbon Dioxide BUN Creatinine Glucose POC Glucose 116 H Lactic Acid Calcium Magnesium Iron TIBC Ferritin AST ALT Lactate Dehydrogenase Troponin T C-Reactive Protein Total Protein Albumin Prealbumin Cholesterol LDL Cholesterol Direct HDL Cholesterol Urine WBC (Auto) Vancomycin Trough Coronavirus (PCR) Crossmatch 07/15/19 07/15/19 07/15/19 05:18 05:57 11:28 WBC RBC Hgb Hct MCV MCH MCHC RDW Plt Count Lymph % (Auto) [place] % (Auto) Lymph # [place] # Baso # Seg Neutrophils % Seg Neuts % (Manual) Lymphocytes % (Manual) Monocytes % (Manual) Nucleated RBC % Seg Neutrophils # Seg Neutrophils # Man Lymphocytes # (Manual) Monocytes # (Manual) PT INR D-Dimer ABG pH ABG pO2 ABG HCO3 ABG O2 Saturation ABG Base Excess ABG Hemoglobin Oxyhemoglobin Sodium Potassium Chloride Carbon Dioxide 20 L BUN 59 H Creatinine Glucose 140 H POC Glucose 139 H 117 H Lactic Acid Calcium Magnesium Iron TIBC Ferritin AST ALT Lactate Dehydrogenase Troponin T C-Reactive Protein Total Protein Albumin Prealbumin Cholesterol LDL Cholesterol Direct HDL Cholesterol Urine WBC (Auto) Vancomycin Trough Coronavirus (PCR) Crossmatch 07/15/19 07/16/19 07/16/19 18:13 00:06 03:43 WBC RBC Hgb Hct MCV MCH MCHC RDW Plt Count Lymph % (Auto) [place] % (Auto) Lymph # [place] # Baso # Seg Neutrophils % Seg Neuts % (Manual) Lymphocytes % (Manual) Monocytes % (Manual) Nucleated RBC % Seg Neutrophils # Seg Neutrophils # Man Lymphocytes # (Manual) Monocytes # (Manual) PT INR D-Dimer ABG pH 7.344 L ABG pO2 68.6 L ABG HCO3 ABG O2 Saturation ABG Base Excess -3.5 L ABG Hemoglobin 6.1 L Oxyhemoglobin 93.3 L Sodium Potassium Chloride Carbon Dioxide BUN Creatinine Glucose POC Glucose 114 H 119 H Lactic Acid Calcium Magnesium Iron TIBC Ferritin AST ALT Lactate Dehydrogenase Troponin T C-Reactive Protein Total Protein Albumin Prealbumin Cholesterol LDL Cholesterol Direct HDL Cholesterol Urine WBC (Auto) Vancomycin Trough Coronavirus (PCR) Crossmatch 07/16/19 07/16/19 07/16/19 04:41 04:41 12:09 WBC 19.6 H RBC 2.81 L Hgb 7.7 L Hct 24.0 L MCV MCH 27 L MCHC RDW 19.4 H Plt Count 514 H Lymph % (Auto) 6.7 L [place] % (Auto) Lymph # [place] # 1.0 H Baso # Seg Neutrophils % 87.0 H Seg Neuts % (Manual) Lymphocytes % (Manual) Monocytes % (Manual) Nucleated RBC % Seg Neutrophils # 17.0 H Seg Neutrophils # Man Lymphocytes # (Manual) Monocytes # (Manual) PT INR D-Dimer ABG pH ABG pO2 ABG HCO3 ABG O2 Saturation ABG Base Excess ABG Hemoglobin Oxyhemoglobin Sodium Potassium 5.9 H Chloride Carbon Dioxide 21 L BUN 73 H Creatinine 2.0 H Glucose POC Glucose 141 H Lactic Acid Calcium Magnesium Iron TIBC Ferritin AST ALT Lactate Dehydrogenase Troponin T C-Reactive Protein Total Protein Albumin Prealbumin Cholesterol LDL Cholesterol Direct HDL Cholesterol Urine WBC (Auto) Vancomycin Trough Coronavirus (PCR) Crossmatch 07/16/19 07/16/19 07/17/19 16:19 17:45 00:16 WBC RBC Hgb Hct MCV MCH MCHC RDW Plt Count Lymph % (Auto) [place] % (Auto) Lymph # [place] # Baso # Seg Neutrophils % Seg Neuts % (Manual) Lymphocytes % (Manual) Monocytes % (Manual) Nucleated RBC % Seg Neutrophils # Seg Neutrophils # Man Lymphocytes # (Manual) Monocytes # (Manual) PT INR D-Dimer ABG pH ABG pO2 ABG HCO3 ABG O2 Saturation ABG Base Excess ABG Hemoglobin Oxyhemoglobin Sodium Potassium 5.1 H Chloride Carbon Dioxide 20 L BUN 72 H Creatinine 1.7 H Glucose 128 H POC Glucose 181 H 164 H Lactic Acid Calcium Magnesium Iron TIBC Ferritin AST ALT Lactate Dehydrogenase Troponin T C-Reactive Protein Total Protein Albumin Prealbumin Cholesterol LDL Cholesterol Direct HDL Cholesterol Urine WBC (Auto) Vancomycin Trough Coronavirus (PCR) Crossmatch 07/17/19 07/17/19 07/17/19 04:20 04:39 04:39 WBC 16.1 H RBC 2.92 L Hgb 8.0 L Hct 25.5 L MCV MCH MCHC 31 L RDW 19.7 H Plt Count 564 H Lymph % (Auto) 3.6 L [place] % (Auto) 7.4 H Lymph # 0.6 L [place] # 1.2 H Baso # Seg Neutrophils % 87.5 H Seg Neuts % (Manual) Lymphocytes % (Manual) Monocytes % (Manual) Nucleated RBC % Seg Neutrophils # 14.1 H Seg Neutrophils # Man Lymphocytes # (Manual) Monocytes # (Manual) PT INR D-Dimer ABG pH 7.231 L ABG pO2 95.3 H ABG HCO3 ABG O2 Saturation ABG Base Excess -5.0 L ABG Hemoglobin 7.9 L Oxyhemoglobin 94.8 L Sodium Potassium Chloride 107.8 H Carbon Dioxide 21 L BUN 68 H Creatinine Glucose POC Glucose Lactic Acid Calcium Magnesium Iron TIBC Ferritin AST ALT Lactate Dehydrogenase Troponin T C-Reactive Protein Total Protein Albumin Prealbumin Cholesterol LDL Cholesterol Direct HDL Cholesterol Urine WBC (Auto) Vancomycin Trough Coronavirus (PCR) Crossmatch 07/17/19 07/17/19 07/17/19 05:28 12:11 18:48 WBC RBC Hgb Hct MCV MCH MCHC RDW Plt Count Lymph % (Auto) [place] % (Auto) Lymph # [place] # Baso # Seg Neutrophils % Seg Neuts % (Manual) Lymphocytes % (Manual) Monocytes % (Manual) Nucleated RBC % Seg Neutrophils # Seg Neutrophils # Man Lymphocytes # (Manual) Monocytes # (Manual) PT INR D-Dimer ABG pH ABG pO2 ABG HCO3 ABG O2 Saturation ABG Base Excess ABG Hemoglobin Oxyhemoglobin Sodium Potassium Chloride Carbon Dioxide BUN Creatinine Glucose POC Glucose 121 H 125 H 174 H Lactic Acid Calcium Magnesium Iron TIBC Ferritin AST ALT Lactate Dehydrogenase Troponin T C-Reactive Protein Total Protein Albumin Prealbumin Cholesterol LDL Cholesterol Direct HDL Cholesterol Urine WBC (Auto) Vancomycin Trough Coronavirus (PCR) Crossmatch 07/17/19 07/17/19 07/18/19 19:55 23:57 02:30 WBC RBC Hgb Hct MCV MCH MCHC RDW Plt Count Lymph % (Auto) [place] % (Auto) Lymph # [place] # Baso # Seg Neutrophils % Seg Neuts % (Manual) Lymphocytes % (Manual) Monocytes % (Manual) Nucleated RBC % Seg Neutrophils # Seg Neutrophils # Man Lymphocytes # (Manual) Monocytes # (Manual) PT INR D-Dimer ABG pH 7.344 L 7.294 L ABG pO2 78.5 L 119.2 H ABG HCO3 ABG O2 Saturation ABG Base Excess -3.3 L -2.6 L ABG Hemoglobin 8.6 L 8.1 L Oxyhemoglobin 94.8 L Sodium Potassium Chloride Carbon Dioxide BUN Creatinine Glucose POC Glucose 148 H Lactic Acid Calcium Magnesium Iron TIBC Ferritin AST ALT Lactate Dehydrogenase Troponin T C-Reactive Protein Total Protein Albumin Prealbumin Cholesterol LDL Cholesterol Direct HDL Cholesterol Urine WBC (Auto) Vancomycin Trough Coronavirus (PCR) Crossmatch 07/18/19 07/18/19 07/18/19 04:49 05:22 05:22 WBC 15.9 H RBC 3.00 L Hgb 8.1 L Hct 26.0 L MCV MCH 27 L MCHC 31 L RDW 19.4 H Plt Count 733 H Lymph % (Auto) 6.3 L [place] % (Auto) 7.4 H Lymph # 1.0 L [place] # 1.2 H Baso # 0.2 H Seg Neutrophils % 83.8 H Seg Neuts % (Manual) Lymphocytes % (Manual) Monocytes % (Manual) Nucleated RBC % Seg Neutrophils # 13.3 H Seg Neutrophils # Man Lymphocytes # (Manual) Monocytes # (Manual) PT INR D-Dimer ABG pH ABG pO2 ABG HCO3 ABG O2 Saturation ABG Base Excess ABG Hemoglobin Oxyhemoglobin Sodium Potassium Chloride 110.6 H Carbon Dioxide BUN 61 H Creatinine Glucose 109 H POC Glucose 116 H Lactic Acid Calcium Magnesium Iron TIBC Ferritin AST ALT Lactate Dehydrogenase Troponin T C-Reactive Protein Total Protein Albumin Prealbumin Cholesterol LDL Cholesterol Direct HDL Cholesterol Urine WBC (Auto) Vancomycin Trough Coronavirus (PCR) Crossmatch 07/18/19 07/18/19 07/18/19 12:23 18:06 22:20 WBC RBC Hgb Hct MCV MCH MCHC RDW Plt Count Lymph % (Auto) [place] % (Auto) Lymph # [place] # Baso # Seg Neutrophils % Seg Neuts % (Manual) Lymphocytes % (Manual) Monocytes % (Manual) Nucleated RBC % Seg Neutrophils # Seg Neutrophils # Man Lymphocytes # (Manual) Monocytes # (Manual) PT INR D-Dimer ABG pH 7.338 L ABG pO2 135.1 H ABG HCO3 ABG O2 Saturation ABG Base Excess ABG Hemoglobin 9.2 L Oxyhemoglobin Sodium Potassium Chloride Carbon Dioxide BUN Creatinine Glucose POC Glucose 114 H 113 H Lactic Acid Calcium Magnesium Iron TIBC Ferritin AST ALT Lactate Dehydrogenase Troponin T C-Reactive Protein Total Protein Albumin Prealbumin Cholesterol LDL Cholesterol Direct HDL Cholesterol Urine WBC (Auto) Vancomycin Trough Coronavirus (PCR) Crossmatch 07/18/19 07/19/19 07/19/19 23:33 03:45 05:18 WBC RBC Hgb Hct MCV MCH MCHC RDW Plt Count Lymph % (Auto) [place] % (Auto) Lymph # [place] # Baso # Seg Neutrophils % Seg Neuts % (Manual) Lymphocytes % (Manual) Monocytes % (Manual) Nucleated RBC % Seg Neutrophils # Seg Neutrophils # Man Lymphocytes # (Manual) Monocytes # (Manual) PT INR D-Dimer ABG pH 7.342 L ABG pO2 95.0 H ABG HCO3 ABG O2 Saturation ABG Base Excess ABG Hemoglobin 8.5 L Oxyhemoglobin Sodium Potassium Chloride Carbon Dioxide BUN Creatinine Glucose POC Glucose 125 H 111 H Lactic Acid Calcium Magnesium Iron TIBC Ferritin AST ALT Lactate Dehydrogenase Troponin T C-Reactive Protein Total Protein Albumin Prealbumin Cholesterol LDL Cholesterol Direct HDL Cholesterol Urine WBC (Auto) Vancomycin Trough Coronavirus (PCR) Crossmatch 07/19/19 07/19/19 07/19/19 08:45 08:45 11:47 WBC 15.9 H RBC 3.31 L Hgb 9.1 L Hct 28.4 L MCV MCH 27 L MCHC RDW 19.1 H Plt Count 858 H Lymph % (Auto) 4.9 L [place] % (Auto) 8.1 H Lymph # 0.8 L [place] # 1.3 H Baso # Seg Neutrophils % 85.5 H Seg Neuts % (Manual) Lymphocytes % (Manual) Monocytes % (Manual) Nucleated RBC % Seg Neutrophils # 13.6 H Seg Neutrophils # Man Lymphocytes # (Manual) Monocytes # (Manual) PT INR D-Dimer ABG pH ABG pO2 ABG HCO3 ABG O2 Saturation ABG Base Excess ABG Hemoglobin Oxyhemoglobin Sodium Potassium Chloride 111.6 H Carbon Dioxide BUN 50 H Creatinine 0.7 L Glucose 118 H POC Glucose 114 H Lactic Acid Calcium Magnesium Iron TIBC Ferritin AST ALT Lactate Dehydrogenase Troponin T C-Reactive Protein Total Protein Albumin Prealbumin Cholesterol LDL Cholesterol Direct HDL Cholesterol Urine WBC (Auto) Vancomycin Trough Coronavirus (PCR) Crossmatch 07/19/19 07/19/19 07/20/19 18:25 23:44 04:39 WBC RBC Hgb Hct MCV MCH MCHC RDW Plt Count Lymph % (Auto) [place] % (Auto) Lymph # [place] # Baso # Seg Neutrophils % Seg Neuts % (Manual) Lymphocytes % (Manual) Monocytes % (Manual) Nucleated RBC % Seg Neutrophils # Seg Neutrophils # Man Lymphocytes # (Manual) Monocytes # (Manual) PT INR D-Dimer ABG pH ABG pO2 ABG HCO3 ABG O2 Saturation ABG Base Excess ABG Hemoglobin Oxyhemoglobin Sodium Potassium Chloride 110.3 H Carbon Dioxide BUN 44 H Creatinine 0.6 L Glucose 120 H POC Glucose 115 H 117 H Lactic Acid Calcium Magnesium Iron TIBC Ferritin AST ALT Lactate Dehydrogenase Troponin T C-Reactive Protein Total Protein Albumin Prealbumin Cholesterol LDL Cholesterol Direct HDL Cholesterol Urine WBC (Auto) Vancomycin Trough Coronavirus (PCR) Crossmatch 07/20/19 07/21/19 07/21/19 05:30 11:59 17:40 WBC RBC Hgb Hct MCV MCH MCHC RDW Plt Count Lymph % (Auto) [place] % (Auto) Lymph # [place] # Baso # Seg Neutrophils % Seg Neuts % (Manual) Lymphocytes % (Manual) Monocytes % (Manual) Nucleated RBC % Seg Neutrophils # Seg Neutrophils # Man Lymphocytes # (Manual) Monocytes # (Manual) PT INR D-Dimer ABG pH ABG pO2 ABG HCO3 ABG O2 Saturation ABG Base Excess ABG Hemoglobin Oxyhemoglobin Sodium Potassium Chloride Carbon Dioxide BUN Creatinine Glucose POC Glucose 131 H 122 H 125 H Lactic Acid Calcium Magnesium Iron TIBC Ferritin AST ALT Lactate Dehydrogenase Troponin T C-Reactive Protein Total Protein Albumin Prealbumin Cholesterol LDL Cholesterol Direct HDL Cholesterol Urine WBC (Auto) Vancomycin Trough Coronavirus (PCR) Crossmatch 07/22/19 07/22/19 07/22/19 05:38 05:38 12:29 WBC 12.6 H RBC 3.19 L Hgb 8.9 L Hct 27.5 L MCV MCH MCHC RDW 18.9 H Plt Count 1101 H* Lymph % (Auto) [place] % (Auto) 12.2 H Lymph # [place] # 1.5 H Baso # Seg Neutrophils % 72.8 H Seg Neuts % (Manual) 76.0 H Lymphocytes % (Manual) 7.0 L Monocytes % (Manual) 14.0 H Nucleated RBC % 1.0 H Seg Neutrophils # 9.2 H Seg Neutrophils # Man 9.6 H Lymphocytes # (Manual) 0.9 L Monocytes # (Manual) 1.8 H PT INR D-Dimer ABG pH ABG pO2 ABG HCO3 ABG O2 Saturation ABG Base Excess ABG Hemoglobin Oxyhemoglobin Sodium Potassium 3.4 L Chloride Carbon Dioxide BUN 29 H Creatinine 0.5 L Glucose POC Glucose 116 H Lactic Acid Calcium Magnesium Iron TIBC Ferritin AST ALT Lactate Dehydrogenase Troponin T C-Reactive Protein Total Protein Albumin Prealbumin Cholesterol LDL Cholesterol Direct HDL Cholesterol Urine WBC (Auto) Vancomycin Trough Coronavirus (PCR) Crossmatch 07/22/19 07/22/19 07/23/19 18:20 23:51 04:52 WBC RBC Hgb Hct MCV MCH MCHC RDW Plt Count Lymph % (Auto) [place] % (Auto) Lymph # [place] # Baso # Seg Neutrophils % Seg Neuts % (Manual) Lymphocytes % (Manual) Monocytes % (Manual) Nucleated RBC % Seg Neutrophils # Seg Neutrophils # Man Lymphocytes # (Manual) Monocytes # (Manual) PT INR D-Dimer ABG pH ABG pO2 ABG HCO3 ABG O2 Saturation ABG Base Excess ABG Hemoglobin Oxyhemoglobin Sodium Potassium Chloride Carbon Dioxide BUN 24 H Creatinine 0.4 L Glucose POC Glucose 107 H 110 H Lactic Acid Calcium Magnesium Iron TIBC Ferritin AST ALT Lactate Dehydrogenase Troponin T C-Reactive Protein Total Protein Albumin Prealbumin Cholesterol LDL Cholesterol Direct HDL Cholesterol Urine WBC (Auto) Vancomycin Trough Coronavirus (PCR) Crossmatch 07/23/19 07/23/19 07/24/19 06:00 23:15 04:40 WBC RBC Hgb Hct MCV MCH MCHC RDW Plt Count Lymph % (Auto) [place] % (Auto) Lymph # [place] # Baso # Seg Neutrophils % Seg Neuts % (Manual) Lymphocytes % (Manual) Monocytes % (Manual) Nucleated RBC % Seg Neutrophils # Seg Neutrophils # Man Lymphocytes # (Manual) Monocytes # (Manual) PT INR D-Dimer ABG pH ABG pO2 73.5 L ABG HCO3 27.0 H 28.5 H ABG O2 Saturation 94.5 L ABG Base Excess ABG Hemoglobin 9.4 L 8.9 L Oxyhemoglobin 94.0 L 92.7 L Sodium Potassium Chloride Carbon Dioxide BUN Creatinine Glucose POC Glucose 117 H Lactic Acid Calcium Magnesium Iron TIBC Ferritin AST ALT Lactate Dehydrogenase Troponin T C-Reactive Protein Total Protein Albumin Prealbumin Cholesterol LDL Cholesterol Direct HDL Cholesterol Urine WBC (Auto) Vancomycin Trough Coronavirus (PCR) Crossmatch 07/24/19 07/24/19 07/25/19 05:25 12:06 00:16 WBC RBC Hgb Hct MCV MCH MCHC RDW Plt Count Lymph % (Auto) [place] % (Auto) Lymph # [place] # Baso # Seg Neutrophils % Seg Neuts % (Manual) Lymphocytes % (Manual) Monocytes % (Manual) Nucleated RBC % Seg Neutrophils # Seg Neutrophils # Man Lymphocytes # (Manual) Monocytes # (Manual) PT INR D-Dimer ABG pH ABG pO2 ABG HCO3 ABG O2 Saturation ABG Base Excess ABG Hemoglobin Oxyhemoglobin Sodium Potassium Chloride Carbon Dioxide BUN Creatinine Glucose POC Glucose 114 H 108 H 106 H Lactic Acid Calcium Magnesium Iron TIBC Ferritin AST ALT Lactate Dehydrogenase Troponin T C-Reactive Protein Total Protein Albumin Prealbumin Cholesterol LDL Cholesterol Direct HDL Cholesterol Urine WBC (Auto) Vancomycin Trough Coronavirus (PCR) Crossmatch 07/25/19 07/25/19 07/25/19 05:14 05:14 05:17 WBC 17.8 H RBC 3.32 L Hgb 9.2 L Hct 28.6 L MCV MCH MCHC RDW 19.9 H Plt Count 994 H Lymph % (Auto) [place] % (Auto) Lymph # [place] # Baso # Seg Neutrophils % Seg Neuts % (Manual) 82.0 H Lymphocytes % (Manual) 5.0 L Monocytes % (Manual) Nucleated RBC % Seg Neutrophils # Seg Neutrophils # Man 14.6 H Lymphocytes # (Manual) 0.9 L Monocytes # (Manual) 1.2 H PT INR D-Dimer ABG pH ABG pO2 ABG HCO3 ABG O2 Saturation ABG Base Excess ABG Hemoglobin Oxyhemoglobin Sodium Potassium Chloride Carbon Dioxide BUN Creatinine 0.4 L Glucose 110 H POC Glucose 107 H Lactic Acid Calcium Magnesium Iron TIBC Ferritin AST ALT Lactate Dehydrogenase Troponin T C-Reactive Protein Total Protein Albumin Prealbumin Cholesterol LDL Cholesterol Direct HDL Cholesterol Urine WBC (Auto) Vancomycin Trough Coronavirus (PCR) Crossmatch 07/25/19 07/25/19 07/26/19 11:55 23:49 06:01 WBC RBC Hgb Hct MCV MCH MCHC RDW Plt Count Lymph % (Auto) [place] % (Auto) Lymph # [place] # Baso # Seg Neutrophils % Seg Neuts % (Manual) Lymphocytes % (Manual) Monocytes % (Manual) Nucleated RBC % Seg Neutrophils # Seg Neutrophils # Man Lymphocytes # (Manual) Monocytes # (Manual) PT INR D-Dimer ABG pH ABG pO2 ABG HCO3 ABG O2 Saturation ABG Base Excess ABG Hemoglobin Oxyhemoglobin Sodium Potassium Chloride Carbon Dioxide BUN Creatinine Glucose POC Glucose 123 H 118 H 106 H Lactic Acid Calcium Magnesium Iron TIBC Ferritin AST ALT Lactate Dehydrogenase Troponin T C-Reactive Protein Total Protein Albumin Prealbumin Cholesterol LDL Cholesterol Direct HDL Cholesterol Urine WBC (Auto) Vancomycin Trough Coronavirus (PCR) Crossmatch 07/26/19 07/27/19 07/27/19 17:02 00:28 05:16 WBC RBC Hgb Hct MCV MCH MCHC RDW Plt Count Lymph % (Auto) [place] % (Auto) Lymph # [place] # Baso # Seg Neutrophils % Seg Neuts % (Manual) Lymphocytes % (Manual) Monocytes % (Manual) Nucleated RBC % Seg Neutrophils # Seg Neutrophils # Man Lymphocytes # (Manual) Monocytes # (Manual) PT INR D-Dimer ABG pH ABG pO2 63.4 L ABG HCO3 31.3 H ABG O2 Saturation 92.7 L ABG Base Excess 6.3 H ABG Hemoglobin 7.6 L Oxyhemoglobin 90.9 L Sodium Potassium Chloride Carbon Dioxide BUN Creatinine Glucose POC Glucose 116 H 158 H Lactic Acid Calcium Magnesium Iron TIBC Ferritin AST ALT Lactate Dehydrogenase Troponin T C-Reactive Protein Total Protein Albumin Prealbumin Cholesterol LDL Cholesterol Direct HDL Cholesterol Urine WBC (Auto) Vancomycin Trough Coronavirus (PCR) Crossmatch 07/28/19 07/28/19 07/28/19 10:13 10:13 23:54 WBC 18.5 H RBC 3.20 L Hgb 8.8 L Hct 26.8 L MCV MCH 27 L MCHC RDW 19.9 H Plt Count 730 H Lymph % (Auto) [place] % (Auto) Lymph # [place] # Baso # Seg Neutrophils % Seg Neuts % (Manual) Lymphocytes % (Manual) Monocytes % (Manual) Nucleated RBC % Seg Neutrophils # Seg Neutrophils # Man Lymphocytes # (Manual) Monocytes # (Manual) PT INR D-Dimer ABG pH ABG pO2 ABG HCO3 ABG O2 Saturation ABG Base Excess ABG Hemoglobin Oxyhemoglobin Sodium Potassium 3.2 L Chloride 97.5 L Carbon Dioxide 31 H BUN Creatinine 0.5 L Glucose POC Glucose 120 H Lactic Acid Calcium Magnesium Iron TIBC Ferritin AST ALT Lactate Dehydrogenase Troponin T C-Reactive Protein Total Protein Albumin Prealbumin Cholesterol LDL Cholesterol Direct HDL Cholesterol Urine WBC (Auto) Vancomycin Trough Coronavirus (PCR) Crossmatch 07/29/19 07/29/19 07/29/19 11:57 17:43 Unknown WBC RBC Hgb Hct MCV MCH MCHC RDW Plt Count Lymph % (Auto) [place] % (Auto) Lymph # [place] # Baso # Seg Neutrophils % Seg Neuts % (Manual) Lymphocytes % (Manual) Monocytes % (Manual) Nucleated RBC % Seg Neutrophils # Seg Neutrophils # Man Lymphocytes # (Manual) Monocytes # (Manual) PT INR D-Dimer ABG pH ABG pO2 ABG HCO3 ABG O2 Saturation ABG Base Excess ABG Hemoglobin Oxyhemoglobin Sodium Potassium Chloride Carbon Dioxide BUN Creatinine Glucose POC Glucose 112 H Lactic Acid Calcium Magnesium Iron TIBC Ferritin AST ALT Lactate Dehydrogenase Troponin T C-Reactive Protein Total Protein Albumin Prealbumin Cholesterol LDL Cholesterol Direct HDL Cholesterol Urine WBC (Auto) 63.0 H Vancomycin Trough Coronavirus (PCR) Positive A Crossmatch 07/30/19 07/30/19 07/30/19 00:20 04:35 04:35 WBC 24.3 H RBC 3.12 L Hgb 8.5 L Hct 26.3 L MCV MCH 27 L MCHC RDW 20.2 H Plt Count 550 H Lymph % (Auto) [place] % (Auto) Lymph # [place] # Baso # Seg Neutrophils % Seg Neuts % (Manual) Lymphocytes % (Manual) Monocytes % (Manual) Nucleated RBC % Seg Neutrophils # Seg Neutrophils # Man Lymphocytes # (Manual) Monocytes # (Manual) PT INR D-Dimer ABG pH ABG pO2 ABG HCO3 ABG O2 Saturation ABG Base Excess ABG Hemoglobin Oxyhemoglobin Sodium Potassium 3.0 L Chloride 96.3 L Carbon Dioxide 32 H BUN Creatinine 0.5 L Glucose POC Glucose 106 H Lactic Acid Calcium Magnesium Iron TIBC Ferritin AST ALT Lactate Dehydrogenase Troponin T C-Reactive Protein Total Protein Albumin Prealbumin Cholesterol LDL Cholesterol Direct HDL Cholesterol Urine WBC (Auto) Vancomycin Trough Coronavirus (PCR) Crossmatch 07/31/19 07/31/19 07/31/19 04:42 04:42 11:33 WBC 23.8 H RBC 3.10 L Hgb 8.4 L Hct 26.1 L MCV MCH 27 L MCHC RDW 19.6 H Plt Count 561 H Lymph % (Auto) [place] % (Auto) Lymph # [place] # Baso # Seg Neutrophils % Seg Neuts % (Manual) Lymphocytes % (Manual) Monocytes % (Manual) Nucleated RBC % Seg Neutrophils # Seg Neutrophils # Man Lymphocytes # (Manual) Monocytes # (Manual) PT INR D-Dimer ABG pH ABG pO2 ABG HCO3 ABG O2 Saturation ABG Base Excess ABG Hemoglobin Oxyhemoglobin Sodium 135 L Potassium Chloride 93.9 L Carbon Dioxide 32 H BUN Creatinine 0.4 L Glucose POC Glucose 116 H Lactic Acid Calcium Magnesium Iron TIBC Ferritin AST ALT Lactate Dehydrogenase Troponin T C-Reactive Protein Total Protein Albumin 1.6 L Prealbumin 0.037 L Cholesterol LDL Cholesterol Direct HDL Cholesterol Urine WBC (Auto) Vancomycin Trough Coronavirus (PCR) Crossmatch 07/31/19 08/01/19 08/01/19 23:33 04:57 04:57 WBC 26.7 H RBC 3.12 L Hgb 8.5 L Hct 26.3 L MCV MCH 27 L MCHC RDW 19.2 H Plt Count 602 H Lymph % (Auto) [place] % (Auto) Lymph # [place] # Baso # Seg Neutrophils % Seg Neuts % (Manual) 93.0 H Lymphocytes % (Manual) 2.0 L Monocytes % (Manual) Nucleated RBC % Seg Neutrophils # Seg Neutrophils # Man 24.8 H Lymphocytes # (Manual) 0.5 L Monocytes # (Manual) 1.1 H PT INR D-Dimer ABG pH ABG pO2 ABG HCO3 ABG O2 Saturation ABG Base Excess ABG Hemoglobin Oxyhemoglobin Sodium 132 L Potassium Chloride 93.8 L Carbon Dioxide 31 H BUN Creatinine 0.3 L Glucose POC Glucose 148 H Lactic Acid Calcium 8.1 L Magnesium Iron TIBC Ferritin AST ALT Lactate Dehydrogenase Troponin T C-Reactive Protein Total Protein Albumin Prealbumin Cholesterol LDL Cholesterol Direct HDL Cholesterol Urine WBC (Auto) Vancomycin Trough Coronavirus (PCR) Crossmatch 08/01/19 08/02/19 08/02/19 12:16 00:22 05:24 WBC RBC Hgb Hct MCV MCH MCHC RDW Plt Count Lymph % (Auto) [place] % (Auto) Lymph # [place] # Baso # Seg Neutrophils % Seg Neuts % (Manual) Lymphocytes % (Manual) Monocytes % (Manual) Nucleated RBC % Seg Neutrophils # Seg Neutrophils # Man Lymphocytes # (Manual) Monocytes # (Manual) PT INR D-Dimer ABG pH ABG pO2 ABG HCO3 ABG O2 Saturation ABG Base Excess ABG Hemoglobin Oxyhemoglobin Sodium Potassium Chloride Carbon Dioxide BUN Creatinine Glucose POC Glucose 120 H 119 H 113 H Lactic Acid Calcium Magnesium Iron TIBC Ferritin AST ALT Lactate Dehydrogenase Troponin T C-Reactive Protein Total Protein Albumin Prealbumin Cholesterol LDL Cholesterol Direct HDL Cholesterol Urine WBC (Auto) Vancomycin Trough Coronavirus (PCR) Crossmatch Allied health notes reviewed: nursing
[2019-08-02] MEDS: ENOXAPARIN 40 MG/0.4 ML INJ SUB-Q SCH (10:50)
[2019-08-02] MEDS: SODIUM HYPOCHLORITE, DAKIN'S 1/2 STRENGTH (0.25%) 473 ML TOPICAL SOLN TP SCH ×2 (10:50→21:46)
--- NOTE | 2019-08-02 10:50 | Progress Note ---
Assessment and Plan Assessment and plan: --COVid positive pneumonia with severe sepsis Received Plaquenil and cefepime, monitor off antibiotics ID following --Septic shock: On Levophed Persistent hypotension, titrate to systolic blood pressure more than 100 -- Acute respiratory Failure with Hypoxia Due to bilateral PNA with COVID 19 infection. On ventilatory support, unable to wean Pulmonary critical following --COPD with exacerbation Likely due to COVID-19 pneumonia Continue scheduled nebs --Anemia, Microcytic persistent s/p total 3 unit of PRBC, today Hb today 9.1 --Pressure Ulcers: POA buttocks, right lateral foot area wound and supportive care --Hyponatremia, resolved --DM type 2: Accu-Chek SCC tube feeding, insulin as needed --h/o HTN Essential, now hypotensive On Levophed --Seizure D/o/CVA/immobility/BIpolar D/o/SCZ Seizure precautions, antiepileptic medications --Severe PCM, TF supportive care, dietary following patient is DNR- Called and verified information Very poor prognosis, Recommend hospice 07/04: COVID +ve, start on plaquinil, called no answer 07/05: transfuse one unit PRBC, Hb dropped to ~6, called and updated 07/06; H&H stable, serum chemistry improved. On mechanical ventilation with high inflammatory markers. Continue Plaquenil and empiric antibiotics. ID following, prognosis remains guarded and extremely poor. 07/07: On mechanical ventilation with high inflammatory markers. Continue Plaquenil and empiric antibiotics. ID following, prognosis remains guarded and extremely poor. 07/08: Called today and verified the CODE STATUS. Patient remains DNR. He is still intubated, with poor prognosis. Continue to follow inflammatory markers. 07/09 wean off from vent as tolerated, completed empiric antibiotic and Plaquenil 07/10 wean off from vent as tolerated. poor prognosis 07/11 hb 6.7 today, transfuse one PRBC. wean off from vent as tolerated. poor prognosis 07/12 remains critically on vent. Hb 6.9 07/13 Hb dropped to 6.6, transfuse 1 unit of PRBC, remains on vent critically ill Hypotensive, fluid bolus, if no improvement start Levophed 07/14; remains anemic with hemoglobin of 6.8, received total 3 units of PRBC Additional 1 unit of PRBC today, stool for occult blood to rule out GI causes Started back on Levophed due to hypotension 07/15; patient remains critically ill, hypotensive on Levophed 07/16: Today remains intubated on vent, persistent hypotension on Levophed 07/17; clinically no change, pressor dependent[on Levophed] DNR status 07/18: Patient remains hypotensive requiring Levophed, intubated on vent Unable to wean, critically ill. DNR 07/20/2019 Patient remains hypotensive requiring Levophed, intubated on vent. Patient currently with AC mode ventilation, rate 20, tidal volume 500, FiO2 40% and PEEP 6. Patient is a poor prognosis and apparently was on hospice recently. 07/21/2019. Patient with PEG tube that was clogged yesterday. surgery evaluated the patient and noted Very long PEG tubing with thick material inside. The ent celsa tube was stripped and a large amount of formed tube feed was expressed. The tube was then flushed with sprite and flushed easily. Tube clamped. Patient currently with AC mode ventilation, rate 20, tidal volume 500, FiO2 40% and PEEP 6. Patient is a poor prognosis and apparently was on hospice recently. 07/22/2019. Patient currently with AC mode ventilation, rate 20, tidal volume 500, FiO2 30% and PEEP 6. Patient on sedation with fentanyl drip. Continue Levophed to maintain MAP greater than 65. Patient is a poor prognosis and apparently was on hospice recently. 07/23/2019. Patient currently with AC mode ventilation, rate 20, tidal volume 500, FiO2 30% and PEEP 6. Patient on sedation with fentanyl drip. Continue Levophed to maintain MAP greater than 65. Patient is a poor prognosis and apparently was on hospice recently. 07/24/2019 Patient with Covid-19 infection with pneumonia, acute respiratory failure, intubated on ventilator. No more fever. Continue current management. 07/25/2019 Patient with Covid-19 infection with pneumonia, acute respiratory failure, intubated on ventilator. fever is now resolved. Sedated with propofol 07/26/2019 Patient with covid-19 infection. Still intubated, on vent. 07/27/2019 Patient with Covid-19. he is still critically ill. patient has DNR order. 07/28/2019 Patient with Covid-19 infection. Will repeat labs today. Surgeon consulted for tracheostomy. 07/29/2019 Patient with Covid-19. hypokalemia yesterday, replaced. Will recheck labs in am. 07/30/2019 patient with Covid-19 infection with acute respiratory failure. He is intubated on ventilator. has hypokalemia. replace and recheck BMP in am. patient has UTI, started on Cefepime. 07/31/2019. patient with Covid-19 infection with acute respiratory failure. He is intubated on ventilator. Repeat chest x-ray reveals decreased infiltrates. urology consultation and wound care consult per ID. Follow-up urine and blood culture. Tracheostomy per surgery. 08/01/2019. patient with Covid-19 infection with acute respiratory failure. He is intubated on ventilator. Patient currently with PSV trials. Pressure support 18/PEEP 6. FiO2 30%. Tracheostomy to be placed per surgery wound COVID testing negative. 08/02/2019. Patient with COVID-19 infection and acute respiratory failure on mechanical ventilation. Continue with PSVT trials with pressure support increased to 20. Follow-up serial chest x-ray. Continue Fentanyl infusion and wean sedation as tolerated. Continue daily spontaneous breathing trials. The high probability of a clinically significant, sudden or life threatening deterioration of the [respiratory, CVS, PAD CUTTER] system(s) required my full and direct attention, intervention and personal management. The aggregate critical care time was [31] minutes. This time is in addition to time spent performing reported procedures but includes the following: [x] Data Review and interpretation [x] Patient assessment and monitoring of vital signs [x] Documentation [x] Medication orders and management History Interval history: 69-year-old male patient with PMH of CVA with RHP, HTN, DM2, SCZ, Dementia, Alcohol use D/o, Seizure D/O, presents to the emergency department via EMS from home with progressive SOB and impending espiratory failure with an unresponsive . PT was intubated was admitted through emergency room to ICU treated for sepsi s, b/l PNA, acute respiratory failure received antibiotics. Patient was tested positive for COVID19. Evaluated by ID , received antibiotics Plaquenil, and inflammatory markers were checked and followed. Patient was hypotensive requiring Levophed, continues to be hypotensive currently on Levophed, unable to wean remains intubated on ventilatory support, critically ill, DNR status however family wants full treatment. Hospitalist Physical - Constitutional Vitals: Temp Pulse Resp BP Pulse Ox 98.6 F 120 H 21 133/73 94 08/02/19 08:00 08/02/19 09:30 08/02/19 09:30 08/02/19 09:30 08/02/19 09:30 General appearance: Present: severe distress, well-nourished, other (Orally intubated on vent) - EENT Eyes: Present: PERRL, EOM intact ENT: hearing intact, clear oral mucosa, dentition normal - Neck Neck: Present: supple, normal ROM - Respiratory Respiratory effort: normal Respiratory: bilateral: CTA - Cardiovascular Rhythm: regular Heart Sounds: Present: S1 & S2. Absent: gallop, rub - Extremities Extremities: no ischemia, No edema, Full ROM - Abdominal General gastrointestinal: soft, non-tender, non-distended, normal bowel sounds - Integumentary Integumentary: Present: clear, warm, dry - Neurologic Neurologic: CNII-XII intact, moves all extremities HEART Score - HEART Score Troponin: Troponin T 0.013 ng/mL (0.00-0.029) 07/04/19 07:05 Results - Labs CBC & Chem 7: 08/01/19 04:57 08/01/19 04:57 Labs: Laboratory Last Values WBC 26.7 K/mm3 (4.5-11.0) H 08/01/19 04:57 RBC 3.12 M/mm3 (3.65-5.03) L 08/01/19 04:57 Hgb 8.5 gm/dl (11.8-15.2) L 08/01/19 04:57 Hct 26.3 % (35.5-45.6) L 08/01/19 04:57 MCV 84 fl (84-94) 08/01/19 04:57 MCH 27 pg (28-32) L 08/01/19 04:57 MCHC 32 % (32-34) 08/01/19 04:57 RDW 19.2 % (13.2-15.2) H 08/01/19 04:57 Plt Count 602 K/mm3 (140-440) H 08/01/19 04:57 Lymph % (Auto) 4.9 % (13.4-35.0) L 07/19/19 08:45 [place] % (Auto) 12.2 % (0.0-7.3) H 07/22/19 05:38 Eos % (Auto) 1.0 % (0.0-4.3) 07/19/19 08:45 Baso % (Auto) 0.5 % (0.0-1.8) 07/19/19 08:45 Lymph # 0.8 K/mm3 (1.2-5.4) L 07/19/19 08:45 [place] # 1.5 K/mm3 (0.0-0.8) H 07/22/19 05:38 Eos # 0.2 K/mm3 (0.0-0.4) 07/19/19 08:45 Baso # 0.1 K/mm3 (0.0-0.1) 07/19/19 08:45 Add Manual Diff Complete 08/01/19 04:57 Total Counted 100 08/01/19 04:57 Seg Neutrophils % 72.8 % (40.0-70.0) H 07/22/19 05:38 Seg Neuts % (Manual) 93.0 % (40.0-70.0) H 08/01/19 04:57 Band Neutrophils % 0 % 08/01/19 04:57 Lymphocytes % (Manual) 2.0 % (13.4-35.0) L 08/01/19 04:57 Reactive Lymphs % (Man) 0 % 08/01/19 04:57 Monocytes % (Manual) 4.0 % (0.0-7.3) 08/01/19 04:57 Eosinophils % (Manual) 0 % (0.0-4.3) 08/01/19 04:57 Basophils % (Manual) 0 % (0.0-1.8) 08/01/19 04:57 Metamyelocytes % 0 % 08/01/19 04:57 Myelocytes % 1.0 % 08/01/19 04:57 Promyelocytes % 0 % 08/01/19 04:57 Blast Cells % 0 % 08/01/19 04:57 Nucleated RBC % Not Reportable 08/01/19 04:57 Seg Neutrophils # 9.2 K/mm3 (1.8-7.7) H 07/22/19 05:38 Seg Neutrophils # Man 24.8 K/mm3 (1.8-7.7) H 08/01/19 04:57 Band Neutrophils # 0.0 K/mm3 08/01/19 04:57 Lymphocytes # (Manual) 0.5 K/mm3 (1.2-5.4) L 08/01/19 04:57 Abs React Lymphs (Man) 0.0 K/mm3 08/01/19 04:57 Monocytes # (Manual) 1.1 K/mm3 (0.0-0.8) H 08/01/19 04:57 Eosinophils # (Manual) 0.0 K/mm3 (0.0-0.4) 08/01/19 04:57 Basophils # (Manual) 0.0 K/mm3 (0.0-0.1) 08/01/19 04:57 Metamyelocytes # 0.0 K/mm3 08/01/19 04:57 Myelocytes # 0.3 K/mm3 08/01/19 04:57 Promyelocytes # 0.0 K/mm3 08/01/19 04:57 Blast Cells # 0.0 K/mm3 08/01/19 04:57 WBC Morphology Not Reportable 08/01/19 04:57 Hypersegmented Neuts Not Reportable 08/01/19 04:57 Hyposegmented Neuts Not Reportable 08/01/19 04:57 Hypogranular Neuts Not Reportable 08/01/19 04:57 Smudge Cells Not Reportable 08/01/19 04:57 Toxic Granulation Not Reportable 08/01/19 04:57 Toxic Vacuolation Not Reportable 08/01/19 04:57 Dohle Bodies Not Reportable 08/01/19 04:57 Pelger-Huet Anomaly Not Reportable 08/01/19 04:57 Mendy Rods Not Reportable 08/01/19 04:57 Platelet Estimate Consistent w auto 08/01/19 04:57 Clumped Platelets Not Reportable 08/01/19 04:57 Plt Clumps, EDTA Not Reportable 08/01/19 04:57 Large Platelets Not Reportable 08/01/19 04:57 Giant Platelets Not Reportable 08/01/19 04:57 Platelet Satelliting Not Reportable 08/01/19 04:57 Plt Morphology Comment Not Reportable 08/01/19 04:57 RBC Morphology Not Reportable 08/01/19 04:57 Dimorphic RBCs Not Reportable 08/01/19 04:57 Polychromasia Not Reportable 08/01/19 04:57 Hypochromasia 1+ 08/01/19 04:57 Poikilocytosis Not Reportable 08/01/19 04:57 Anisocytosis 1+ 08/01/19 04:57 Microcytosis Not Reportable 08/01/19 04:57 Macrocytosis Not Reportable 08/01/19 04:57 Spherocytes Not Reportable 08/01/19 04:57 Pappenheimer Bodies Not Reportable 08/01/19 04:57 Sickle Cells Not Reportable 08/01/19 04:57 Target Cells Not Reportable 08/01/19 04:57 Tear Drop Cells Not Reportable 08/01/19 04:57 Ovalocytes Not Reportable 08/01/19 04:57 Stomatocytes Few 08/01/19 04:57 Helmet Cells Not Reportable 08/01/19 04:57 [place] Bodies Not Reportable 08/01/19 04:57 [place] Rings Not Reportable 08/01/19 04:57 Joanne Cells Not Reportable 08/01/19 04:57 Bite Cells Not Reportable 08/01/19 04:57 Crenated Cell Not Reportable 08/01/19 04:57 Elliptocytes Not Reportable 08/01/19 04:57 Acanthocytes (Spur) Not Reportable 08/01/19 04:57 Rouleaux Not Reportable 08/01/19 04:57 Hemoglobin C Crystals Not Reportable 08/01/19 04:57 Schistocytes Not Reportable 08/01/19 04:57 Malaria parasites Not Reportable 08/01/19 04:57 Jeevan Bodies Not Reportable 08/01/19 04:57 Hem Pathologist Commnt No 08/01/19 04:57 PT 16.0 Sec. (12.2-14.9) H 07/03/19 22:20 INR 1.26 (0.87-1.13) H 07/03/19 22:20 D-Dimer 1142.18 ng/mlDDU (0-234) H 07/08/19 00:45 ABG pH 7.430 pH Units (7.350-7.450) 07/27/19 05:16 ABG pCO2 48.2 mm Hg 07/27/19 05:16 ABG pO2 63.4 mm Hg (80.0-90.0) L 07/27/19 05:16 ABG HCO3 31.3 mmol/L (20.0-26.0) H 07/27/19 05:16 ABG O2 Saturation 92.7 % (95.0-99.0) L 07/27/19 05:16 ABG O2 Content 9.8 (0.0-44) 07/27/19 05:16 ABG Base Excess 6.3 mmol/L (-2.0-3.0) H 07/27/19 05:16 ABG Hemoglobin 7.6 gm/dl (14.0-18.0) L 07/27/19 05:16 ABG Carboxyhemoglobin 1.6 % (0.0-5.0) 07/27/19 05:16 ABG Methemoglobin 0.4 % (0.0-1.5) 07/27/19 05:16 Oxyhemoglobin 90.9 % (95.0-99.0) L 07/27/19 05:16 FiO2 25 % 07/27/19 05:16 Sodium 132 mmol/L (137-145) L 08/01/19 04:57 Potassium 4.3 mmol/L (3.6-5.0) 08/01/19 04:57 Chloride 93.8 mmol/L (98-107) L 08/01/19 04:57 Carbon Dioxide 31 mmol/L (22-30) H 08/01/19 04:57 Anion Gap 12 mmol/L 08/01/19 04:57 BUN 12 mg/dL (9-20) 08/01/19 04:57 Creatinine 0.3 mg/dL (0.8-1.5) L 08/01/19 04:57 Estimated GFR > 60 ml/min 08/01/19 04:57 BUN/Creatinine Ratio 40 % 08/01/19 04:57 Glucose 95 mg/dL (75-100) 08/01/19 04:57 POC Glucose 113 (70-105) H 08/02/19 05:24 Osmolality 268 Mosm/kg 07/05/19 04:00 Lactic Acid 3.30 mmol/L (0.7-2.0) H* 07/04/19 07:05 Uric Acid 7.2 mg/dL (3.5-7.6) 07/05/19 04:00 Calcium 8.1 mg/dL (8.4-10.2) L 08/01/19 04:57 Phosphorus 3.60 mg/dL (2.5-4.5) 07/05/19 04:00 Magnesium 1.80 mg/dL (1.7-2.3) 07/11/19 05:14 Iron 9 ug/dL (49-181) L 07/04/19 07:05 TIBC 97 mcg/dL (250-450) L 07/04/19 07:05 Ferritin 839.0 ng/mL (13.0-400.0) H 07/08/19 00:45 Total Bilirubin 0.20 mg/dL (0.1-1.2) 07/04/19 07:05 AST 73 units/L (5-40) H 07/04/19 07:05 ALT 91 units/L (7-56) H 07/04/19 07:05 Alkaline Phosphatase 114 units/L (35-129) 07/04/19 07:05 Ammonia 35.0 umol/L (25-60) 07/03/19 23:58 Lactate Dehydrogenase 277 units/L (91-180) H 07/10/19 04:00 Troponin T 0.013 ng/mL (0.00-0.029) 07/04/19 07:05 C-Reactive Protein 15.10 mg/dL (0.00-1.30) H 07/10/19 04:00 Total Protein 5.5 g/dL (6.3-8.2) L 07/04/19 07:05 Albumin 1.6 g/dL (3.9-5) L 07/31/19 04:42 Albumin/Globulin Ratio 0.6 % 07/04/19 07:05 Prealbumin 0.037 g/L (0.200-0.400) L 07/31/19 04:42 Triglycerides 33 mg/dL (2-149) 07/03/19 19:57 Cholesterol 47 mg/dL (50-199) L 07/03/19 19:57 LDL Cholesterol Direct 25 mg/dL (50-130) L 07/03/19 19:57 HDL Cholesterol 20 mg/dL (40-59) L 07/03/19 19:57 Cholesterol/HDL Ratio 2.35 % 07/03/19 19:57 Procalcitonin 24.82 ng/mL (<0.15) 07/30/19 12:59 TSH 2.170 mlU/mL (0.270-4.200) 07/03/19 22:20 Total Cortisol 28.0 mcg/dL () 07/05/19 10:11 Urine Color Yellow (Yellow) 07/29/19 11:57 Urine Turbidity Clear (Clear) 07/29/19 11:57 Urine pH 7.0 (5.0-7.0) 07/29/19 11:57 Ur Specific Lipan 1.012 (1.003-1.030) 07/29/19 11:57 Urine Protein <15 mg/dl mg/dL (Negative) 07/29/19 11:57 Urine Glucose (UA) Neg mg/dL (Negative) 07/29/19 11:57 Urine Ketones Neg mg/dL (Negative) 07/29/19 11:57 Urine Blood Sm (Negative) 07/29/19 11:57 Urine Nitrite Neg (Negative) 07/29/19 11:57 Urine Bilirubin Neg (Negative) 07/29/19 11:57 Urine Urobilinogen 4.0 mg/dL (<2.0) 07/29/19 11:57 Ur Leukocyte Esterase Mod (Negative) 07/29/19 11:57 Urine WBC (Auto) 63.0 /HPF (0.0-6.0) H 07/29/19 11:57 Urine RBC (Auto) 14.0 /HPF (0.0-6.0) 07/29/19 11:57 U Epithel Cells (Auto) < 1.0 /HPF (0-13.0) 07/29/19 11:57 Urine Bacteria (Auto) 1+ /HPF (Negative) 07/29/19 11:57 Urine WBC Clumps Few /HPF 07/03/19 21:13 Urine Mucus Few /HPF 07/03/19 21:13 Urine Osmolality 293 Mosm/kg 07/05/19 08:15 Vancomycin Trough 23.2 ug/mL (5.0-20.0) H 07/05/19 17:54 Urine Opiates Screen Presumptive negative 07/03/19 21:13 Urine Methadone Screen Presumptive negative 07/03/19 21:13 Ur Barbiturates Screen Presumptive negative 07/03/19 21:13 Ur Phencyclidine Scrn Presumptive negative 07/03/19 21:13 Ur Amphetamines Screen Presumptive negative 07/03/19 21:13 U Benzodiazepines Scrn Presumptive negative 07/03/19 21:13 Urine Cocaine Screen Presumptive negative 07/03/19 21:13 U Marijuana (THC) Screen Presumptive negative 07/03/19 21:13 Drugs of Abuse Note Disclamer 07/03/19 21:13 Plasma/Serum Alcohol < 0.01 % (0-0.07) 07/03/19 23:58 Coronavirus (PCR) Positive (Negative) A 07/29/19 Unknown Blood Type B POSITIVE 07/12/19 08:49 Antibody Screen Negative 07/12/19 08:49 Crossmatch See Detail 07/12/19 08:49 Microbiology: Microbiology 07/30/19 Unknown Tracheal Aspirate Sputum Culture - Preliminary Gram Negative Juan Manuel 07/30/19 12:59 Peripheral/Venous Blood Culture - Preliminary NO GROWTH AFTER 48 HOURS 07/30/19 12:59 Peripheral/Venous Blood Culture - Preliminary NO GROWTH AFTER 48 HOURS Wright/IV: Voiding Method Indwelling Catheter IV Catheter Type [Left Forearm Peripheral IV ] IV Catheter Type [Left Upper Mid-line arm] IV Catheter Type [Right INT / Saline Lock Forearm] IV Catheter Type [Right Hand] INT / Saline Lock IV Catheter Type [Right CVL Femoral] IV Catheter Type [Left INT / Saline Lock External Jugular] Active Medications - Current Medications Current Medications: Generic Name Dose Route Start Last Admin Trade Name Freq PRN Reason Stop Dose Admin Acetaminophen 650 mg 07/04/19 04:24 Tylenol MA Q6H PRN Pain MILD(1-3)/Fever >100.5/MURO Acetaminophen 650 mg 07/10/19 04:00 07/29/19 12:00 Tylenol PO 650 mg Q6HR PRN Administration Pain, Mild (1-3) FEVER Lipase/Protease/Amylase 1 each 07/04/19 10:04 07/20/19 06:15 Pancrewhitley Gilbert 10,500 Unit FEEDTUBE 1 each PRN PRN Administration For Clogged Feeding Tube Aspirin 81 mg 07/05/19 10:00 08/01/19 09:02 Baby Aspirin PO 81 mg QDAY TAMMIE Administration Dextrose 50 ml 07/04/19 06:54 D50w (25gm) Syringe IV Q30MIN PRN Hypoglycemia Protocol Docusate Sodium 100 mg 07/10/19 10:00 08/01/19 21:18 Colace PO 100 mg BID TAMMIE Administration Enoxaparin Sodium 40 mg 07/24/19 10:00 08/01/19 10:26 Enoxaparin SUB-Q 40 mg QDAY@1000 TAMMIE Administration Famotidine 20 mg 07/23/19 22:00 08/01/19 21:16 Pepcid PO 20 mg BID TAMMIE Administration Fentanyl 50 mcg 07/21/19 15:18 Sublimaze IV Q10MIN PRN ANALGESIA Folic Acid 1 mg 07/05/19 10:00 08/01/19 09:01 Folvite PO 1 mg QDAY TAMMIE Administration Hydrophilic Ointment 1 applic 07/03/19 19:56 07/05/19 17:42 Vaseline Lip Therapy TP 1 applic Q2HR PRN Administration Dry Lips Norepinephrine 4 mg in 250 mls @ 7.5 mls/hr 07/03/19 23:00 07/20/19 01:00 Levophed Drip 4 Mg/Ns 250 Ml IV Infused TITR TAMMIE Titration Protocol 2 MCG/MIN Fentanyl Citrate 2,000 mcg in 100 mls @ 4.75 mls/hr 07/21/19 16:00 08/01/19 14:18 Fentanyl Drip Premix IV 1 mcg/kg/hr TITR TAMMIE 4.75 mls/hr Administration Protocol 1 MCG/KG/HR Cefepime HCl 1 gm in 100 mls @ 200 mls/hr 07/29/19 14:00 08/02/19 05:15 Cefepime/Ns 1 Gm/100 Ml IV 200 mls/hr Q8HR TAMMEI Administration Protocol Insulin Human Lispro 0 unit 07/07/19 12:00 08/02/19 06:32 Humalog SUB-Q Not Given Q6HR [facility] Protocol Levetiracetam 750 mg 07/06/19 11:00 08/01/19 21:16 Keppra FEEDTUBE 750 mg Q12HR TAMMIE Administration Metoprolol Tartrate 5 mg 07/12/19 15:08 07/29/19 07:30 Metoprolol IV 5 mg Q6HR PRN Administration Tachyarrhythmias Multi-Ingred Cream/Lotion/Oil/Oint 1 applic 07/03/19 19:56 07/05/19 13:19 Artificial Tears Ophth Oint OU 1 applic Q4HR PRN Administration Dry Eye(s) Naloxone HCl 0.1 mg 07/04/19 04:24 Naloxone IV Q2MIN PRN Res Rate </= 8 or 02 SAT < 92% Oxycodone/Acetaminophen 1 tab 07/19/19 14:17 Percocet 5/325 PO Q4H PRN Pain, Moderate (4-6) Scopolamine 1 each 07/10/19 11:00 07/31/19 15:09 Transderm-Scop TD 1 each Q3D TAMMIE Administration Simple Syrup 15 ml 07/04/19 10:04 07/10/19 21:56 Simple Syrup FEEDTUBE 15 ml PRN PRN Administration Hypoglycemia Simple Syrup 30 ml 07/04/19 10:04 Simple Syrup FEEDTUBE PRN PRN Hypoglycemia Sodium Bicarbonate 325 mg 07/04/19 10:04 07/20/19 10:20 Sodium Bicarbonate FEEDTUBE 325 mg PRN PRN Administration For Clogged Feeding Tube Sodium Chloride 10 ml 07/04/19 10:00 08/01/19 21:18 Sodium Chloride Flush Syringe 10 Ml IV 10 ml BID ATMMIE Administration Sodium Chloride 10 ml 07/04/19 04:24 Sodium Chloride Flush Syringe 10 Ml IV PRN PRN LINE FLUSH Sodium Hypochlorite 1 applic 07/10/19 14:00 08/01/19 21:17 Dakin's Half Strength TP 1 applicatio BID TAMMIE Administration Nutrition/Malnutrition Assess - Dietary Evaluation Nutrition/Malnutrition Findings: Nutrition Notes Start: 07/04/19 09:17 Freq: Status: Active Protocol: Document 08/01/19 14:30 [facility] (Rec: 08/01/19 14:31 [facility] [email or web address] [id number]) Nutrition Notes Initial or Follow up Brief Note Current Diet TF - Nepro at 45ml/hr Labs/Tests K 4.3 Subjective/Other Information RD spoke with RN via phone at 12:35. Pt tolerating TF at goal rate. Nutrition Intervention Follow-Up By: 08/06/19 Additional Comments F/U: stable TF, vent status
[2019-08-02] MEDS: FOLIC ACID 1 MG TAB PO SCH (13:56)
[2019-08-02] MEDS: DOCUSATE SODIUM 100 MG/10 ML ORAL LIQD PO SCH ×2 (13:56→21:29)
[2019-08-02] MEDS: ASPIRIN 81 MG TAB CHEW PO SCH (13:56)
[2019-08-02] MEDS: FAMOTIDINE 20 MG TAB PO SCH ×2 (13:57→21:24)
[2019-08-02] MEDS: levETIRAcetam 500 MG/5 ML ORAL LIQD FEEDTUBE SCH ×2 (13:57→21:25)
--- NOTE | 2019-08-02 14:03 | XRay Report ---
ABDOMEN 1 VIEW(S) INDICATION: NGT [facility] for feeding COMPARISON: None available. FINDINGS: Feeding tube has tip at the esophageal gastric junction Bowel gas pattern: Within normal limits. No dilated loops of large or small bowel. Free air: None. Calcified gallstones: None seen. Calcified urinary tract calculi: None seen. Additional Findings: None. Skeletal structures: No acute abnormality. IMPRESSION: 1. No acute findings. Signer Name: Mateo Carlson MD Signed: 08/02/2019 1:59 PM Workstation Name: [id number]
[2019-08-02] MEDS ORDERED: DOCUSATE SODIUM 100 MG CAP ONE (19:54)
[2019-08-02] MEDS: fentaNYL DRIP Premix 2,000 MCG/100 ML BAG IV SCH (21:52)
[2019-08-03] MEDS: INSULIN LISPRO 100 UNIT/ML SUB-Q SCH ×4 (00:19→18:32)
[2019-08-03] MEDS: CEFEPIME/NS 1 GM/100 ML 1 GM/100 ML BAG IV SCH (05:02)
[2019-08-03] MEDS: levETIRAcetam 500 MG/5 ML ORAL LIQD FEEDTUBE SCH ×2 (09:24→23:17)
[2019-08-03] MEDS: FOLIC ACID 1 MG TAB PO SCH (09:24)
[2019-08-03] MEDS: DOCUSATE SODIUM 100 MG/10 ML ORAL LIQD PO SCH ×2 (09:24→23:12)
[2019-08-03] MEDS: ACETAMINOPHEN 325 MG/10.15 ML ORAL LIQD UNIT DOSE PO PRN (09:25)
[2019-08-03] MEDS: ASPIRIN 81 MG TAB CHEW PO SCH (09:25)
[2019-08-03] MEDS: ENOXAPARIN 40 MG/0.4 ML INJ SUB-Q SCH (09:25)
[2019-08-03] MEDS: FAMOTIDINE 20 MG TAB PO SCH ×2 (09:25→23:17)
[2019-08-03] MEDS: SCOPOLAMINE TRANSDERMAL PATCH 72 HR TD SCH (10:41)
[2019-08-03] MEDS: fentaNYL 25 MCG/HR PATCH 72HR TD SCH (10:43)
--- NOTE | 2019-08-03 11:23 | Progress Note ---
Assessment and Plan Cultures: 07/03/2019 urine culture: No growth 07/03/2019 Tracheal aspirate: E.coli 07/29/2019 urine culture: neg 07/30/2019 blood culture: no growth tracheal asp + GNR A/P: 69-year-old male with CVA, hypertension, dementia, schizophrenia, alcohol use disorder was admitted to the emergency room after being brought in by EMS with progressive shortness of breath and unresponsiveness. He was noted to have agonal breathing and a faint pulse requiring CPR. It seems patient was on hospice recently, prior to admission. #Shock, likely septic: shock resolved, remains off pressors. Noted new fever and worsening leukocytosis today ? source Pna, UTI/ penile/scrotal wounds. Very high procal=24 on 07/29. Repeat CXR decreased infiltrates #Penile/scrotal and buttocks wounds: ?cellulitis #New UTI: per documentation initial carroll placed on 07/03 #Severe COVID-19 disease and pneumonia: Markers improving. Completed Plaquenil. Completed Ceftriaxone for treatment E.coli in tracheal aspirate. #Acute respiratory failure: on mechanical ventilation. #Transaminitis: Likely from COVID-19, shock #Multiple skin tears documented on admission Recs: Monitor fever Obtain blood cx repeat CXR Monitor sputum cx growing GNR ? colonizer Continue Wound care Off loading Tracheostomy placement to be scheduled when COVID testing is negative per surgery monitor off abx Dr Barboza covering Will follow Padmaja Garcia MD Infectious Diseases Therapeutic Assistant [facility] ([facility]) M [phone] O [phone] Subjective Date of service: 08/03/19 Principal diagnosis: Bilateral pneumonia, severe sepsis with septic shock, en cephalopathy Interval history: Remains intubated, noted low grade fever 100.7, no pressors, on sedative Objective - Exam Narrative Exam: General appearance: sedated on the vent Eyes: anicteric sclerae, moist conjunctivae; no lid-lag; PERRLA HENT: Atraumatic; oropharynx ETT Lungs: CTA CV: RRR no murmur Abdomen: Soft, non-tender Extremities: marked madelin arm edema Skin: No rash. Genital: penile/scrotal ulcer covered w dressings Psych: no agitated Neuro: sedated Carroll - Constitutional Vitals: Vital Signs Temp Pulse Resp BP Pulse Ox 100.7 F H 117 H 19 113/50 98 08/03/19 08:00 08/03/19 11:00 08/03/19 11:00 08/03/19 11:00 08/03/19 11:00 Temperature -Last 24 Hours Temperature 100.7 F Temperature 99.8 F Temperature 99.4 F Temperature 98.9 F Temperature 99.4 F Temperature 98.5 F - Labs CBC & Chem 7: 08/01/19 04:57 08/01/19 04:57
--- NOTE | 2019-08-03 12:28 | Progress Note ---
Assessment and Plan S/p Cardiopulmonary arrest with ROSC Severe Sepsis with septic shock. Acute hypoxemic respiratory failure on MVS COVID-19 positive with elevated markers Bilateral pneumonia Elevated LFTs. Oropharyngeal dysphagia s/p PEG Acute kidney injury Decubitus ulcers-unstageable Moderate protein calorie malnutriton [id number] metabolic acidosis Leukocytosis -improving Thrombocytosis Microcytic anemia Cefepime started by ID today Repeat COVID testing to help facilitate trach placement -Continue enoxaparin for VTE prophylaxis- currently has severe thrombocytosis -On Fentanyl infusion, at 1mcg to allow for weaning trials -Will coordinate sedation interruption( RN) and SBT( RT) today to optimize chances of success with weaning trial -Continue all critical care as documented below -ABG, CXR prn - continue airborne, droplet and contact isolation for COVID-19 - continue wound care per WCT - sedation prn for target RASS 0 to -1 - continue to wean supplemental oxygen for target O2 sat's > 90% - Daily SAT's and SBT assessment as tolerated - VAP bundle addressed - continue lung protective strategies - continue bronchodilators with pulmonary hygiene per RT - wean per pulmonary driven protocols otherwise - accuchecks with glycemic control per SSI (While critically ill target blood gl ucose of 140-180 mg/dL; avoid hypoglycemia) - continue to avoid benzodiazepines, reduce the possibility of delirium - prn analgesia per CPOT score - Maintenance of sleep-wake cycle, avoid delirium - continue enteral nutritional support at goal rate as tolerated - VTE prophylaxis-SCDs/Enoxaparin -Stress ulcer prophylaxis- Famotidine - PT/OT/ROM exercises - continue mobility protocol, off loading and skin assessment for pressure ulcer prevention - Monitor hemodynamics closely -Wright catheter in this critically ill patient with unstageable sacral decubitus ulcer -PEG site care - continue other care per attending / other consultants - discharge planning ongoing concurrently .... Re-evaluate in am & prn CONDITION: CRITICAL PROGNOSIS: GUARDED CODE STATUS: DNAR Called his family to discuss goals of care, wants us to continue to treat aggressively at this time. The high probability of a clinically significant, sudden or life-threatening deterioration of the [respiratory & cardiovascular] system(s) required my full and direct attention, intervention and personal management. The aggregate critical care time was [31] minutes without overlap. Time includes spent on; [x] Data Review and interpretation [x] Patient assessment and monitoring of vital signs [x] Documentation [x] Medication orders and management Subjective Date of service: 08/03/19 Principal diagnosis: Bilateral pneumonia, severe sepsis with septic shock, encephalopathy Interval history: The patient is a 69-year-old male with CVA, hypertension, dementia, schizophrenia, alcohol use disorder was admitted to the emergency room after being brought in by EMS with progressive shortness of breath and unresponsiveness. He was noted to have agonal breathing and a faint pulse requiring CPR. Patient was intubated and brought to the hospital. It seems, patient was on home hospice. Currently, remains critically ill, intubated, on mechanical ventilation. His COVID test resulted positive. Patient is seen today for: s/p cardiopulmonary arrest with ROSC;Ac hypoxemic Resp failure on MVS; Severe sepsis with Shock; Bilateral Pneumonia; POSITIVE coronavirus-19 infection. Seen and examined at bedside; 24hour events reviewed; nursing and respiratory care staff consulted; no adverse overnight events reported to me; Vitals, labs, medications, chart and imaging reviewed resting in bed.Temperature spike this morning, with ongoing low grade fevers On MVS and tolerating it well; on fentanyl at 1mcg Tolerating tube feedings,, Mental status changes persist, will spontaneously op en eyes NGT feedings, not using PEG. Good glycemic control with blood glucose ranging between 99-113 Currently not on any antibiotics Objective Vital Signs - 12hr 08/03/19 08/03/19 08/03/19 00:30 01:00 01:30 Temperature Pulse Rate 119 H 124 H 122 H Pulse Rate [ From Monitor] Respiratory 17 19 17 Rate Blood Pressure 132/61 132/58 138/62 O2 Sat by Pulse 98 97 97 Oximetry 08/03/19 08/03/19 08/03/19 02:00 02:30 03:00 Temperature Pulse Rate 126 H 125 H 122 H Pulse Rate [ From Monitor] Respiratory 19 17 16 Rate Blood Pressure 142/63 134/55 127/60 O2 Sat by Pulse 96 97 98 Oximetry 08/03/19 08/03/19 08/03/19 03:30 03:38 04:00 Temperature 99.8 F H Pulse Rate 122 H 125 H Pulse Rate [ 127 H From Monitor] Respiratory 16 19 Rate Blood Pressure 135/66 139/62 O2 Sat by Pulse 96 94 Oximetry 08/03/19 08/03/19 08/03/19 04:30 04:58 05:00 Temperature Pulse Rate 126 H 132 H Pulse Rate [ From Monitor] Respiratory 14 Rate Blood Pressure 147/71 147/71 130/62 O2 Sat by Pulse 98 97 100 Oximetry 08/03/19 08/03/19 08/03/19 05:30 06:00 06:30 Temperature Pulse Rate 122 H 116 H 129 H Pulse Rate [ From Monitor] Respiratory 16 15 15 Rate Blood Pressure 135/59 126/58 146/75 O2 Sat by Pulse 97 98 90 Oximetry 08/03/19 08/03/19 08/03/19 07:00 07:30 08:00 Temperature 100.7 F H Pulse Rate 116 H 117 H 118 H Pulse Rate [ 120 H From Monitor] Respiratory 15 16 14 Rate Blood Pressure 139/73 129/61 133/61 O2 Sat by Pulse 98 97 96 Oximetry 08/03/19 08/03/19 08/03/19 08:30 09:00 09:30 Temperature Pulse Rate 121 H 122 H 118 H Pulse Rate [ From Monitor] Respiratory 16 14 15 Rate Blood Pressure 133/61 130/64 141/71 O2 Sat by Pulse 97 97 97 Oximetry 08/03/19 08/03/19 08/03/19 10:00 10:30 10:43 Temperature Pulse Rate 119 H 119 H Pulse Rate [ From Monitor] Respiratory 17 20 22 Rate Blood Pressure 133/61 114/47 O2 Sat by Pulse 97 95 Oximetry 08/03/19 08/03/19 08/03/19 11:00 11:30 12:00 Temperature Pulse Rate 117 H 112 H 111 H Pulse Rate [ From Monitor] Respiratory 19 22 26 H Rate Blood Pressure 113/50 106/43 107/42 O2 Sat by Pulse 98 97 97 Oximetry Constitutional: appears uncomfortable, other (eelderly and chronically ill looking AAM, normocep[krystina;ic with mildly increased respiratory effort at rest) Eyes: non-icteric ENT: oropharynx moist, other (ETT 24 cm Pawan) Neck: supple, no lymphadenopathy, no JVD Effort: very labored Ascultation: Bilateral: diminished breath sounds, rhonchi Percussion: Bilateral: not dull Cardiovascular: regular rate and rhythm Gastrointestinal: normoactive bowel sounds, soft, non-tender, non-distended, other (+ PEG tube with mild TF leakage) Integumentary: decubitus ulcer Extremities: no cyanosis, no edema, pink and warm, pulses normal Neurologic: unable to assess Psychiatric: other (Unable to assess re: AMS) CBC and BMP: 08/08/19 04:41 08/08/19 04:41 ABG, PT/INR, D-dimer: ABG ABG pH 7.430 pH Units (7.350-7.450) 07/27/19 05:16 ABG pCO2 48.2 mm Hg 07/27/19 05:16 ABG pO2 63.4 mm Hg (80.0-90.0) L 07/27/19 05:16 ABG O2 Saturation 92.7 % (95.0-99.0) L 07/27/19 05:16 PT/INR, D-dimer PT 16.0 Sec. (12.2-14.9) H 07/03/19 22:20 INR 1.26 (0.87-1.13) H 07/03/19 22:20 D-Dimer 1142.18 ng/mlDDU (0-234) H 07/08/19 00:45 Abnormal lab findings: Abnormal Labs 07/03/19 07/03/19 07/03/19 19:57 21:10 21:13 WBC RBC Hgb Hct MCV MCH MCHC RDW Plt Count Lymph % (Auto) Maury % (Auto) Lymph # Maury # Baso # Seg Neutrophils % Seg Neuts % (Manual) Lymphocytes % (Manual) Monocytes % (Manual) Nucleated RBC % Seg Neutrophils # Seg Neutrophils # Man Lymphocytes # (Manual) Monocytes # (Manual) PT INR D-Dimer ABG pH 7.238 L ABG pO2 210.8 H ABG HCO3 15.4 L ABG O2 Saturation 99.2 H ABG Base Excess -11.1 L ABG Hemoglobin 8.0 L Oxyhemoglobin Sodium 124 L Potassium Chloride 92.9 L Carbon Dioxide 10 L BUN 23 H Creatinine 0.5 L Glucose 118 H POC Glucose Lactic Acid Calcium 7.0 L Magnesium Iron TIBC Ferritin AST 70 H ALT 88 H Lactate Dehydrogenase Troponin T 0.032 H C-Reactive Protein Total Protein 5.0 L Albumin 1.8 L Prealbumin Cholesterol 47 L LDL Cholesterol Direct 25 L HDL Cholesterol 20 L Urine WBC (Auto) 12.0 H Vancomycin Trough Coronavirus (PCR) Crossmatch 07/03/19 07/03/19 07/03/19 22:20 22:20 22:20 WBC 30.5 H RBC 2.96 L Hgb 7.7 L Hct 23.9 L MCV 81 L MCH 26 L MCHC RDW 18.6 H Plt Count 459 H Lymph % (Auto) Maury % (Auto) Lymph # Maury # Baso # Seg Neutrophils % Seg Neuts % (Manual) 93.0 H Lymphocytes % (Manual) 0.5 L Monocytes % (Manual) Nucleated RBC % Seg Neutrophils # Seg Neutrophils # Man 28.4 H Lymphocytes # (Manual) 0.2 L Monocytes # (Manual) PT 16.0 H INR 1.26 H D-Dimer ABG pH ABG pO2 ABG HCO3 ABG O2 Saturation ABG Base Excess ABG Hemoglobin Oxyhemoglobin Sodium Potassium Chloride Carbon Dioxide BUN Creatinine Glucose POC Glucose Lactic Acid 6.90 H* Calcium Magnesium Iron TIBC Ferritin AST ALT Lactate Dehydrogenase Troponin T C-Reactive Protein Total Protein Albumin Prealbumin Cholesterol LDL Cholesterol Direct HDL Cholesterol Urine WBC (Auto) Vancomycin Trough Coronavirus (PCR) Crossmatch 07/03/19 07/04/19 07/04/19 23:58 05:15 07:05 WBC 17.1 H RBC 3.22 L Hgb 8.3 L Hct 25.4 L MCV 79 L MCH 26 L MCHC RDW 18.6 H Plt Count Lymph % (Auto) Maury % (Auto) Lymph # Maury # Baso # Seg Neutrophils % Seg Neuts % (Manual) 74.0 H Lymphocytes % (Manual) 0 L Monocytes % (Manual) Nucleated RBC % Seg Neutrophils # Seg Neutrophils # Man 12.7 H Lymphocytes # (Manual) 0.0 L Monocytes # (Manual) PT INR D-Dimer ABG pH 7.310 L ABG pO2 73.2 L ABG HCO3 17.8 L ABG O2 Saturation 93.8 L ABG Base Excess -7.7 L ABG Hemoglobin 9.6 L Oxyhemoglobin 92.3 L Sodium Potassium Chloride Carbon Dioxide BUN Creatinine Glucose POC Glucose Lactic Acid 7.10 H* Calcium Magnesium Iron TIBC Ferritin AST ALT Lactate Dehydrogenase Troponin T C-Reactive Protein Total Protein Albumin Prealbumin Cholesterol LDL Cholesterol Direct HDL Cholesterol Urine WBC (Auto) Vancomycin Trough Coronavirus (PCR) Crossmatch 07/04/19 07/04/19 07/04/19 07:05 07:05 07:05 WBC RBC Hgb Hct MCV MCH MCHC RDW Plt Count Lymph % (Auto) Maury % (Auto) Lymph # Maury # Baso # Seg Neutrophils % Seg Neuts % (Manual) Lymphocytes % (Manual) Monocytes % (Manual) Nucleated RBC % Seg Neutrophils # Seg Neutrophils # Man Lymphocytes # (Manual) Monocytes # (Manual) PT INR D-Dimer ABG pH ABG pO2 ABG HCO3 ABG O2 Saturation ABG Base Excess ABG Hemoglobin Oxyhemoglobin Sodium 120 L Potassium 5.1 H Chloride 90.0 L Carbon Dioxide 14 L BUN 26 H Creatinine 0.5 L Glucose POC Glucose Lactic Acid 3.30 H* Calcium 8.0 L Magnesium Iron 9 L TIBC 97 L Ferritin AST 73 H ALT 91 H Lactate Dehydrogenase Troponin T C-Reactive Protein Total Protein 5.5 L Albumin 2.0 L Prealbumin Cholesterol LDL Cholesterol Direct HDL Cholesterol Urine WBC (Auto) Vancomycin Trough Coronavirus (PCR) Crossmatch 07/04/19 07/04/19 07/04/19 09:39 09:39 09:39 WBC RBC Hgb Hct MCV MCH MCHC RDW Plt Count Lymph % (Auto) Maury % (Auto) Lymph # Maury # Baso # Seg Neutrophils % Seg Neuts % (Manual) Lymphocytes % (Manual) Monocytes % (Manual) Nucleated RBC % Seg Neutrophils # Seg Neutrophils # Man Lymphocytes # (Manual) Monocytes # (Manual) PT INR D-Dimer 1419.14 H ABG pH ABG pO2 ABG HCO3 ABG O2 Saturation ABG Base Excess ABG Hemoglobin Oxyhemoglobin Sodium Potassium Chloride Carbon Dioxide BUN Creatinine Glucose POC Glucose Lactic Acid Calcium Magnesium Iron TIBC Ferritin 1719.0 H AST ALT Lactate Dehydrogenase 234 H Troponin T C-Reactive Protein 15.50 H Total Protein Albumin Prealbumin Cholesterol LDL Cholesterol Direct HDL Cholesterol Urine WBC (Auto) Vancomycin Trough Coronavirus (PCR) Crossmatch 07/04/19 07/04/19 07/04/19 10:09 18:08 18:28 WBC RBC Hgb Hct MCV MCH MCHC RDW Plt Count Lymph % (Auto) Maury % (Auto) Lymph # Maury # Baso # Seg Neutrophils % Seg Neuts % (Manual) Lymphocytes % (Manual) Monocytes % (Manual) Nucleated RBC % Seg Neutrophils # Seg Neutrophils # Man Lymphocytes # (Manual) Monocytes # (Manual) PT INR D-Dimer ABG pH ABG pO2 ABG HCO3 ABG O2 Saturation ABG Base Excess ABG Hemoglobin Oxyhemoglobin Sodium 117 L* Potassium 5.6 H Chloride 90.3 L Carbon Dioxide 16 L BUN 28 H Creatinine 0.5 L Glucose 58 L POC Glucose 65 L Lactic Acid Calcium 8.2 L Magnesium Iron TIBC Ferritin AST ALT Lactate Dehydrogenase Troponin T C-Reactive Protein Total Protein Albumin Prealbumin Cholesterol LDL Cholesterol Direct HDL Cholesterol Urine WBC (Auto) Vancomycin Trough Coronavirus (PCR) Positive A Crossmatch 07/04/19 07/04/19 07/04/19 23:45 Unknown Unknown WBC RBC Hgb Hct MCV MCH MCHC RDW Plt Count Lymph % (Auto) Maury % (Auto) Lymph # Maury # Baso # Seg Neutrophils % Seg Neuts % (Manual) Lymphocytes % (Manual) Monocytes % (Manual) Nucleated RBC % Seg Neutrophils # Seg Neutrophils # Man Lymphocytes # (Manual) Monocytes # (Manual) PT INR D-Dimer 759.77 H ABG pH ABG pO2 ABG HCO3 ABG O2 Saturation ABG Base Excess ABG Hemoglobin Oxyhemoglobin Sodium 122 L Potassium Chloride 93.0 L Carbon Dioxide 19 L BUN 27 H Creatinine 0.5 L Glucose POC Glucose Lactic Acid Calcium 8.3 L Magnesium Iron TIBC Ferritin 1301.0 H AST ALT Lactate Dehydrogenase Troponin T C-Reactive Protein Total Protein Albumin Prealbumin Cholesterol LDL Cholesterol Direct HDL Cholesterol Urine WBC (Auto) Vancomycin Trough Coronavirus (PCR) Crossmatch 07/04/19 07/05/19 07/05/19 Unknown 03:20 04:00 WBC RBC Hgb Hct MCV MCH MCHC RDW Plt Count Lymph % (Auto) Maury % (Auto) Lymph # Maury # Baso # Seg Neutrophils % Seg Neuts % (Manual) Lymphocytes % (Manual) Monocytes % (Manual) Nucleated RBC % Seg Neutrophils # Seg Neutrophils # Man Lymphocytes # (Manual) Monocytes # (Manual) PT INR D-Dimer ABG pH ABG pO2 60.6 L ABG HCO3 ABG O2 Saturation 93.5 L ABG Base Excess -2.4 L ABG Hemoglobin 6.9 L Oxyhemoglobin 92.0 L Sodium 125 L Potassium Chloride 92.6 L Carbon Dioxide 19 L BUN 24 H Creatinine 0.6 L Glucose POC Glucose Lactic Acid Calcium 8.2 L Magnesium 1.40 L Iron TIBC Ferritin AST ALT Lactate Dehydrogenase 242 H Troponin T C-Reactive Protein 16.70 H Total Protein Albumin Prealbumin Cholesterol LDL Cholesterol Direct HDL Cholesterol Urine WBC (Auto) Vancomycin Trough Coronavirus (PCR) Crossmatch 07/05/19 07/05/19 07/05/19 10:11 16:15 17:54 WBC 46.4 H* RBC 2.77 L Hgb 7.2 L Hct 21.9 L MCV 79 L MCH 26 L MCHC RDW 19.0 H Plt Count Lymph % (Auto) Maury % (Auto) Lymph # Maury # Baso # Seg Neutrophils % Seg Neuts % (Manual) 82.0 H Lymphocytes % (Manual) 1.0 L Monocytes % (Manual) Nucleated RBC % Seg Neutrophils # Seg Neutrophils # Man 38.0 H Lymphocytes # (Manual) 0.5 L Monocytes # (Manual) PT INR D-Dimer ABG pH ABG pO2 ABG HCO3 ABG O2 Saturation ABG Base Excess ABG Hemoglobin Oxyhemoglobin Sodium Potassium Chloride Carbon Dioxide BUN Creatinine Glucose POC Glucose 69 L Lactic Acid Calcium Magnesium Iron TIBC Ferritin AST ALT Lactate Dehydrogenase Troponin T C-Reactive Protein Total Protein Albumin Prealbumin Cholesterol LDL Cholesterol Direct HDL Cholesterol Urine WBC (Auto) Vancomycin Trough 23.2 H Coronavirus (PCR) Crossmatch 07/05/19 07/06/19 07/06/19 19:58 00:27 00:27 WBC RBC Hgb Hct MCV MCH MCHC RDW Plt Count Lymph % (Auto) Maury % (Auto) Lymph # Maury # Baso # Seg Neutrophils % Seg Neuts % (Manual) Lymphocytes % (Manual) Monocytes % (Manual) Nucleated RBC % Seg Neutrophils # Seg Neutrophils # Man Lymphocytes # (Manual) Monocytes # (Manual) PT INR D-Dimer 1333.22 H ABG pH ABG pO2 ABG HCO3 ABG O2 Saturation ABG Base Excess ABG Hemoglobin Oxyhemoglobin Sodium 127 L Potassium Chloride Carbon Dioxide BUN Creatinine Glucose POC Glucose Lactic Acid Calcium Magnesium Iron TIBC Ferritin 977.1 H AST ALT Lactate Dehydrogenase Troponin T C-Reactive Protein Total Protein Albumin Prealbumin Cholesterol LDL Cholesterol Direct HDL Cholesterol Urine WBC (Auto) Vancomycin Trough Coronavirus (PCR) Crossmatch 07/06/19 07/06/19 07/06/19 00:27 02:00 02:56 WBC RBC Hgb Hct MCV MCH MCHC RDW Plt Count Lymph % (Auto) Maury % (Auto) Lymph # Maury # Baso # Seg Neutrophils % Seg Neuts % (Manual) Lymphocytes % (Manual) Monocytes % (Manual) Nucleated RBC % Seg Neutrophils # Seg Neutrophils # Man Lymphocytes # (Manual) Monocytes # (Manual) PT INR D-Dimer ABG pH ABG pO2 70.3 L ABG HCO3 ABG O2 Saturation 94.8 L ABG Base Excess ABG Hemoglobin 8.0 L Oxyhemoglobin 93.2 L Sodium Potassium Chloride Carbon Dioxide BUN Creatinine Glucose POC Glucose 117 H Lactic Acid Calcium Magnesium Iron TIBC Ferritin AST ALT Lactate Dehydrogenase 236 H Troponin T C-Reactive Protein 22.90 H Total Protein Albumin Prealbumin Cholesterol LDL Cholesterol Direct HDL Cholesterol Urine WBC (Auto) Vancomycin Trough Coronavirus (PCR) Crossmatch 07/06/19 07/06/19 07/06/19 03:49 03:49 07:40 WBC 38.8 H RBC 2.51 L Hgb 6.7 L Hct 19.9 L* MCV 79 L MCH 27 L MCHC RDW 19.2 H Plt Count Lymph % (Auto) Maury % (Auto) Lymph # Maury # Baso # Seg Neutrophils % Seg Neuts % (Manual) 90.5 H Lymphocytes % (Manual) 1.0 L Monocytes % (Manual) Nucleated RBC % Seg Neutrophils # Seg Neutrophils # Man 35.1 H Lymphocytes # (Manual) 0.4 L Monocytes # (Manual) PT INR D-Dimer ABG pH ABG pO2 ABG HCO3 ABG O2 Saturation ABG Base Excess ABG Hemoglobin Oxyhemoglobin Sodium 131 L Potassium Chloride 96.9 L Carbon Dioxide 18 L BUN 23 H Creatinine 0.5 L Glucose POC Glucose Lactic Acid Calcium 8.0 L Magnesium Iron TIBC Ferritin AST ALT Lactate Dehydrogenase Troponin T C-Reactive Protein Total Protein Albumin Prealbumin Cholesterol LDL Cholesterol Direct HDL Cholesterol Urine WBC (Auto) Vancomycin Trough Coronavirus (PCR) Crossmatch See Detail 07/06/19 07/06/19 07/06/19 12:38 14:39 20:00 WBC RBC Hgb Hct MCV MCH MCHC RDW Plt Count Lymph % (Auto) Maury % (Auto) Lymph # Maury # Baso # Seg Neutrophils % Seg Neuts % (Manual) Lymphocytes % (Manual) Monocytes % (Manual) Nucleated RBC % Seg Neutrophils # Seg Neutrophils # Man Lymphocytes # (Manual) Monocytes # (Manual) PT INR D-Dimer ABG pH ABG pO2 ABG HCO3 ABG O2 Saturation ABG Base Excess ABG Hemoglobin Oxyhemoglobin Sodium Potassium Chloride Carbon Dioxide BUN Creatinine Glucose POC Glucose 112 H 111 H 140 H Lactic Acid Calcium Magnesium Iron TIBC Ferritin AST ALT Lactate Dehydrogenase Troponin T C-Reactive Protein Total Protein Albumin Prealbumin Cholesterol LDL Cholesterol Direct HDL Cholesterol Urine WBC (Auto) Vancomycin Trough Coronavirus (PCR) Crossmatch 07/06/19 07/06/19 07/07/19 22:43 22:56 02:20 WBC RBC Hgb 7.9 L Hct 23.1 L MCV MCH MCHC RDW Plt Count Lymph % (Auto) Maury % (Auto) Lymph # Maury # Baso # Seg Neutrophils % Seg Neuts % (Manual) Lymphocytes % (Manual) Monocytes % (Manual) Nucleated RBC % Seg Neutrophils # Seg Neutrophils # Man Lymphocytes # (Manual) Monocytes # (Manual) PT INR D-Dimer ABG pH ABG pO2 ABG HCO3 ABG O2 Saturation ABG Base Excess ABG Hemoglobin Oxyhemoglobin Sodium Potassium Chloride Carbon Dioxide BUN Creatinine Glucose POC Glucose 122 H 149 H Lactic Acid Calcium Magnesium Iron TIBC Ferritin AST ALT Lactate Dehydrogenase Troponin T C-Reactive Protein Total Protein Albumin Prealbumin Cholesterol LDL Cholesterol Direct HDL Cholesterol Urine WBC (Auto) Vancomycin Trough Coronavirus (PCR) Crossmatch 07/07/19 07/07/19 07/07/19 04:35 05:27 05:34 WBC 23.1 H RBC 3.00 L Hgb 8.1 L Hct 24.2 L MCV 81 L MCH 27 L MCHC RDW 20.6 H Plt Count Lymph % (Auto) Maury % (Auto) Lymph # Maury # Baso # Seg Neutrophils % Seg Neuts % (Manual) 90.0 H Lymphocytes % (Manual) 2.0 L Monocytes % (Manual) Nucleated RBC % Seg Neutrophils # Seg Neutrophils # Man 20.8 H Lymphocytes # (Manual) 0.5 L Monocytes # (Manual) PT INR D-Dimer ABG pH ABG pO2 65.8 L ABG HCO3 ABG O2 Saturation 92.2 L ABG Base Excess ABG Hemoglobin 8.3 L Oxyhemoglobin 90.6 L Sodium Potassium Chloride Carbon Dioxide BUN Creatinine Glucose POC Glucose 132 H Lactic Acid Calcium Magnesium Iron TIBC Ferritin AST ALT Lactate Dehydrogenase Troponin T C-Reactive Protein Total Protein Albumin Prealbumin Cholesterol LDL Cholesterol Direct HDL Cholesterol Urine WBC (Auto) Vancomycin Trough Coronavirus (PCR) Crossmatch 07/07/19 07/07/19 07/07/19 05:34 11:50 15:58 WBC RBC Hgb 8.1 L Hct 24.2 L MCV MCH MCHC RDW Plt Count Lymph % (Auto) Maury % (Auto) Lymph # Maury # Baso # Seg Neutrophils % Seg Neuts % (Manual) Lymphocytes % (Manual) Monocytes % (Manual) Nucleated RBC % Seg Neutrophils # Seg Neutrophils # Man Lymphocytes # (Manual) Monocytes # (Manual) PT INR D-Dimer ABG pH ABG pO2 ABG HCO3 ABG O2 Saturation ABG Base Excess ABG Hemoglobin Oxyhemoglobin Sodium 135 L Potassium 3.3 L Chloride Carbon Dioxide 20 L BUN 27 H Creatinine 0.6 L Glucose 121 H POC Glucose 123 H Lactic Acid Calcium 8.0 L Magnesium Iron TIBC Ferritin AST ALT Lactate Dehydrogenase Troponin T C-Reactive Protein Total Protein Albumin Prealbumin Cholesterol LDL Cholesterol Direct HDL Cholesterol Urine WBC (Auto) Vancomycin Trough Coronavirus (PCR) Crossmatch 07/07/19 07/07/19 07/07/19 17:42 22:00 23:53 WBC RBC Hgb 8.0 L Hct 23.4 L MCV MCH MCHC RDW Plt Count Lymph % (Auto) Maury % (Auto) Lymph # Maury # Baso # Seg Neutrophils % Seg Neuts % (Manual) Lymphocytes % (Manual) Monocytes % (Manual) Nucleated RBC % Seg Neutrophils # Seg Neutrophils # Man Lymphocytes # (Manual) Monocytes # (Manual) PT INR D-Dimer ABG pH ABG pO2 ABG HCO3 ABG O2 Saturation ABG Base Excess ABG Hemoglobin Oxyhemoglobin Sodium Potassium Chloride Carbon Dioxide BUN Creatinine Glucose POC Glucose 107 H 117 H Lactic Acid Calcium Magnesium Iron TIBC Ferritin AST ALT Lactate Dehydrogenase Troponin T C-Reactive Protein Total Protein Albumin Prealbumin Cholesterol LDL Cholesterol Direct HDL Cholesterol Urine WBC (Auto) Vancomycin Trough Coronavirus (PCR) Crossmatch 07/08/19 07/08/19 07/08/19 00:45 00:45 00:45 WBC RBC Hgb Hct MCV MCH MCHC RDW Plt Count Lymph % (Auto) Maury % (Auto) Lymph # Maury # Baso # Seg Neutrophils % Seg Neuts % (Manual) Lymphocytes % (Manual) Monocytes % (Manual) Nucleated RBC % Seg Neutrophils # Seg Neutrophils # Man Lymphocytes # (Manual) Monocytes # (Manual) PT INR D-Dimer 1142.18 H ABG pH ABG pO2 ABG HCO3 ABG O2 Saturation ABG Base Excess ABG Hemoglobin Oxyhemoglobin Sodium Potassium Chloride Carbon Dioxide BUN Creatinine Glucose POC Glucose Lactic Acid Calcium Magnesium Iron TIBC Ferritin 839.0 H AST ALT Lactate Dehydrogenase 253 H Troponin T C-Reactive Protein 18.90 H Total Protein Albumin Prealbumin Cholesterol LDL Cholesterol Direct HDL Cholesterol Urine WBC (Auto) Vancomycin Trough Coronavirus (PCR) Crossmatch 07/08/19 07/08/19 07/08/19 04:30 05:11 12:02 WBC RBC Hgb Hct MCV MCH MCHC RDW Plt Count Lymph % (Auto) Maury % (Auto) Lymph # Maury # Baso # Seg Neutrophils % Seg Neuts % (Manual) Lymphocytes % (Manual) Monocytes % (Manual) Nucleated RBC % Seg Neutrophils # Seg Neutrophils # Man Lymphocytes # (Manual) Monocytes # (Manual) PT INR D-Dimer ABG pH ABG pO2 66.0 L ABG HCO3 ABG O2 Saturation 92.3 L ABG Base Excess ABG Hemoglobin 7.7 L Oxyhemoglobin 90.7 L Sodium Potassium Chloride Carbon Dioxide BUN Creatinine Glucose POC Glucose 108 H 153 H Lactic Acid Calcium Magnesium Iron TIBC Ferritin AST ALT Lactate Dehydrogenase Troponin T C-Reactive Protein Total Protein Albumin Prealbumin Cholesterol LDL Cholesterol Direct HDL Cholesterol Urine WBC (Auto) Vancomycin Trough Coronavirus (PCR) Crossmatch 07/08/19 07/08/19 07/08/19 16:15 18:22 23:35 WBC RBC Hgb Hct MCV MCH MCHC RDW Plt Count Lymph % (Auto) Maury % (Auto) Lymph # Maury # Baso # Seg Neutrophils % Seg Neuts % (Manual) Lymphocytes % (Manual) Monocytes % (Manual) Nucleated RBC % Seg Neutrophils # Seg Neutrophils # Man Lymphocytes # (Manual) Monocytes # (Manual) PT INR D-Dimer ABG pH ABG pO2 ABG HCO3 ABG O2 Saturation ABG Base Excess ABG Hemoglobin Oxyhemoglobin Sodium 134 L Potassium 3.3 L Chloride Carbon Dioxide 21 L BUN 27 H Creatinine 0.6 L Glucose 146 H POC Glucose 134 H 133 H Lactic Acid Calcium Magnesium Iron TIBC Ferritin AST ALT Lactate Dehydrogenase Troponin T C-Reactive Protein Total Protein Albumin Prealbumin Cholesterol LDL Cholesterol Direct HDL Cholesterol Urine WBC (Auto) Vancomycin Trough Coronavirus (PCR) Crossmatch 07/09/19 07/09/19 07/09/19 04:30 04:30 05:00 WBC 18.9 H RBC 2.77 L Hgb 7.4 L Hct 22.8 L MCV 82 L MCH 27 L MCHC RDW 20.9 H Plt Count 130 L Lymph % (Auto) Maury % (Auto) Lymph # Maury # Baso # Seg Neutrophils % Seg Neuts % (Manual) 84.0 H Lymphocytes % (Manual) 0 L Monocytes % (Manual) Nucleated RBC % Seg Neutrophils # Seg Neutrophils # Man 15.9 H Lymphocytes # (Manual) 0.0 L Monocytes # (Manual) PT INR D-Dimer ABG pH ABG pO2 ABG HCO3 ABG O2 Saturation ABG Base Excess ABG Hemoglobin Oxyhemoglobin Sodium Potassium 3.1 L Chloride Carbon Dioxide BUN 26 H Creatinine 0.5 L Glucose 125 H POC Glucose 155 H Lactic Acid Calcium Magnesium Iron TIBC Ferritin AST ALT Lactate Dehydrogenase Troponin T C-Reactive Protein Total Protein Albumin Prealbumin Cholesterol LDL Cholesterol Direct HDL Cholesterol Urine WBC (Auto) Vancomycin Trough Coronavirus (PCR) Crossmatch 07/09/19 07/09/19 07/09/19 05:55 12:22 17:50 WBC RBC Hgb Hct MCV MCH MCHC RDW Plt Count Lymph % (Auto) Maury % (Auto) Lymph # Maury # Baso # Seg Neutrophils % Seg Neuts % (Manual) Lymphocytes % (Manual) Monocytes % (Manual) Nucleated RBC % Seg Neutrophils # Seg Neutrophils # Man Lymphocytes # (Manual) Monocytes # (Manual) PT INR D-Dimer ABG pH ABG pO2 62.8 L ABG HCO3 ABG O2 Saturation ABG Base Excess ABG Hemoglobin 6.1 L Oxyhemoglobin 93.9 L Sodium Potassium Chloride Carbon Dioxide BUN Creatinine Glucose POC Glucose 115 H 133 H Lactic Acid Calcium Magnesium Iron TIBC Ferritin AST ALT Lactate Dehydrogenase Troponin T C-Reactive Protein Total Protein Albumin Prealbumin Cholesterol LDL Cholesterol Direct HDL Cholesterol Urine WBC (Auto) Vancomycin Trough Coronavirus (PCR) Crossmatch 07/10/19 07/10/19 07/10/19 00:38 04:00 04:00 WBC RBC Hgb Hct MCV MCH MCHC RDW Plt Count Lymph % (Auto) Maury % (Auto) Lymph # Ma[place] # Baso # Seg Neutrophils % Seg Neuts % (Manual) Lymphocytes % (Manual) Monocytes % (Manual) Nucleated RBC % Seg Neutrophils # Seg Neutrophils # Man Lymphocytes # (Manual) Monocytes # (Manual) PT INR D-Dimer ABG pH ABG pO2 ABG HCO3 ABG O2 Saturation ABG Base Excess ABG Hemoglobin Oxyhemoglobin Sodium Potassium Chloride 107.9 H Carbon Dioxide BUN 26 H Creatinine 0.4 L Glucose 137 H POC Glucose 122 H Lactic Acid Calcium Magnesium 1.50 L Iron TIBC Ferritin AST ALT Lactate Dehydrogenase 277 H Troponin T C-Reactive Protein 15.10 H Total Protein Albumin Prealbumin Cholesterol LDL Cholesterol Direct HDL Cholesterol Urine WBC (Auto) Vancomycin Trough Coronavirus (PCR) Crossmatch 07/10/19 07/10/19 07/10/19 04:07 05:21 17:25 WBC RBC Hgb Hct MCV MCH MCHC RDW Plt Count Lymph % (Auto) Ma[place] % (Auto) Lymph # [place] # Baso # Seg Neutrophils % Seg Neuts % (Manual) Lymphocytes % (Manual) Monocytes % (Manual) Nucleated RBC % Seg Neutrophils # Seg Neutrophils # Man Lymphocytes # (Manual) Monocytes # (Manual) PT INR D-Dimer ABG pH ABG pO2 65.6 L ABG HCO3 26.3 H ABG O2 Saturation ABG Base Excess ABG Hemoglobin 6.7 L Oxyhemoglobin Sodium Potassium Chloride Carbon Dioxide BUN Creatinine Glucose POC Glucose 144 H 113 H Lactic Acid Calcium Magnesium Iron TIBC Ferritin AST ALT Lactate Dehydrogenase Troponin T C-Reactive Protein Total Protein Albumin Prealbumin Cholesterol LDL Cholesterol Direct HDL Cholesterol Urine WBC (Auto) Vancomycin Trough Coronavirus (PCR) Crossmatch 07/11/19 07/11/19 07/11/19 00:07 05:14 05:25 WBC RBC Hgb Hct MCV MCH MCHC RDW Plt Count Lymph % (Auto) Maury % (Auto) Lymph # [place] # Baso # Seg Neutrophils % Seg Neuts % (Manual) Lymphocytes % (Manual) Monocytes % (Manual) Nucleated RBC % Seg Neutrophils # Seg Neutrophils # Man Lymphocytes # (Manual) Monocytes # (Manual) PT INR D-Dimer ABG pH ABG pO2 ABG HCO3 ABG O2 Saturation ABG Base Excess ABG Hemoglobin 5.8 L Oxyhemoglobin Sodium Potassium Chloride 108.0 H Carbon Dioxide BUN 26 H Creatinine 0.4 L Glucose 110 H POC Glucose 121 H Lactic Acid Calcium Magnesium Iron TIBC Ferritin AST ALT Lactate Dehydrogenase Troponin T C-Reactive Protein Total Protein Albumin Prealbumin Cholesterol LDL Cholesterol Direct HDL Cholesterol Urine WBC (Auto) Vancomycin Trough Coronavirus (PCR) Crossmatch 07/11/19 07/11/19 07/11/19 12:27 18:00 23:42 WBC RBC Hgb Hct MCV MCH MCHC RDW Plt Count Lymph % (Auto) Maury % (Auto) Lymph # [place] # Baso # Seg Neutrophils % Seg Neuts % (Manual) Lymphocytes % (Manual) Monocytes % (Manual) Nucleated RBC % Seg Neutrophils # Seg Neutrophils # Man Lymphocytes # (Manual) Monocytes # (Manual) PT INR D-Dimer ABG pH ABG pO2 ABG HCO3 ABG O2 Saturation ABG Base Excess ABG Hemoglobin Oxyhemoglobin Sodium Potassium Chloride Carbon Dioxide BUN Creatinine Glucose POC Glucose 158 H 141 H 142 H Lactic Acid Calcium Magnesium Iron TIBC Ferritin AST ALT Lactate Dehydrogenase Troponin T C-Reactive Protein Total Protein Albumin Prealbumin Cholesterol LDL Cholesterol Direct HDL Cholesterol Urine WBC (Auto) Vancomycin Trough Coronavirus (PCR) Crossmatch 07/12/19 07/12/19 07/12/19 04:46 04:46 05:23 WBC 23.6 H RBC 2.51 L Hgb 6.7 L Hct 20.8 L MCV 83 L MCH 27 L MCHC RDW 20.3 H Plt Count Lymph % (Auto) Maury % (Auto) Lymph # [place] # Baso # Seg Neutrophils % Seg Neuts % (Manual) 94.0 H Lymphocytes % (Manual) 4.0 L Monocytes % (Manual) Nucleated RBC % Seg Neutrophils # Seg Neutrophils # Man 22.2 H Lymphocytes # (Manual) 0.9 L Monocytes # (Manual) PT INR D-Dimer ABG pH ABG pO2 ABG HCO3 ABG O2 Saturation ABG Base Excess ABG Hemoglobin Oxyhemoglobin Sodium Potassium Chloride 107.1 H Carbon Dioxide BUN 25 H Creatinine 0.4 L Glucose 122 H POC Glucose 118 H Lactic Acid Calcium Magnesium Iron TIBC Ferritin AST ALT Lactate Dehydrogenase Troponin T C-Reactive Protein Total Protein Albumin Prealbumin Cholesterol LDL Cholesterol Direct HDL Cholesterol Urine WBC (Auto) Vancomycin Trough Coronavirus (PCR) Crossmatch 07/12/19 07/12/19 07/12/19 08:49 11:36 18:15 WBC RBC Hgb Hct MCV MCH MCHC RDW Plt Count Lymph % (Auto) Ma[place] % (Auto) Lymph # [place] # Baso # Seg Neutrophils % Seg Neuts % (Manual) Lymphocytes % (Manual) Monocytes % (Manual) Nucleated RBC % Seg Neutrophils # Seg Neutrophils # Man Lymphocytes # (Manual) Monocytes # (Manual) PT INR D-Dimer ABG pH ABG pO2 ABG HCO3 ABG O2 Saturation ABG Base Excess ABG Hemoglobin Oxyhemoglobin Sodium Potassium Chloride Carbon Dioxide BUN Creatinine Glucose POC Glucose 124 H 110 H Lactic Acid Calcium Magnesium Iron TIBC Ferritin AST ALT Lactate Dehydrogenase Troponin T C-Reactive Protein Total Protein Albumin Prealbumin Cholesterol LDL Cholesterol Direct HDL Cholesterol Urine WBC (Auto) Vancomycin Trough Coronavirus (PCR) Crossmatch See Detail 07/12/19 07/13/19 07/13/19 23:16 05:26 06:50 WBC 23.9 H RBC 2.58 L Hgb 6.9 L Hct 21.5 L MCV 83 L MCH 27 L MCHC RDW 19.0 H Plt Count Lymph % (Auto) Maury % (Auto) Lymph # [place] # Baso # Seg Neutrophils % Seg Neuts % (Manual) 96.0 H Lymphocytes % (Manual) 3.0 L Monocytes % (Manual) Nucleated RBC % Seg Neutrophils # Seg Neutrophils # Man 22.9 H Lymphocytes # (Manual) 0.7 L Monocytes # (Manual) PT INR D-Dimer ABG pH ABG pO2 ABG HCO3 ABG O2 Saturation ABG Base Excess ABG Hemoglobin Oxyhemoglobin Sodium Potassium Chloride Carbon Dioxide BUN Creatinine Glucose POC Glucose 108 H 126 H Lactic Acid Calcium Magnesium Iron TIBC Ferritin AST ALT Lactate Dehydrogenase Troponin T C-Reactive Protein Total Protein Albumin Prealbumin Cholesterol LDL Cholesterol Direct HDL Cholesterol Urine WBC (Auto) Vancomycin Trough Coronavirus (PCR) Crossmatch 07/13/19 07/13/19 07/13/19 06:50 12:38 18:05 WBC RBC Hgb Hct MCV MCH MCHC RDW Plt Count Lymph % (Auto) [place] % (Auto) Lymph # [place] # Baso # Seg Neutrophils % Seg Neuts % (Manual) Lymphocytes % (Manual) Monocytes % (Manual) Nucleated RBC % Seg Neutrophils # Seg Neutrophils # Man Lymphocytes # (Manual) Monocytes # (Manual) PT INR D-Dimer ABG pH ABG pO2 ABG HCO3 ABG O2 Saturation ABG Base Excess ABG Hemoglobin Oxyhemoglobin Sodium Potassium Chloride Carbon Dioxide BUN 33 H Creatinine 0.5 L Glucose 136 H POC Glucose 164 H 145 H Lactic Acid Calcium Magnesium Iron TIBC Ferritin AST ALT Lactate Dehydrogenase Troponin T C-Reactive Protein Total Protein Albumin Prealbumin Cholesterol LDL Cholesterol Direct HDL Cholesterol Urine WBC (Auto) Vancomycin Trough Coronavirus (PCR) Crossmatch 07/13/19 07/14/19 07/14/19 18:30 00:21 04:40 WBC 22.9 H RBC 2.45 L Hgb 6.6 L Hct 21.1 L MCV MCH 27 L MCHC 31 L RDW 19.2 H Plt Count Lymph % (Auto) [place] % (Auto) Lymph # [place] # Baso # Seg Neutrophils % Seg Neuts % (Manual) 91.0 H Lymphocytes % (Manual) 7.0 L Monocytes % (Manual) Nucleated RBC % Seg Neutrophils # Seg Neutrophils # Man 20.8 H Lymphocytes # (Manual) Monocytes # (Manual) PT INR D-Dimer ABG pH ABG pO2 58.1 L ABG HCO3 ABG O2 Saturation 88.7 L ABG Base Excess ABG Hemoglobin 7.8 L Oxyhemoglobin 86.8 L Sodium Potassium Chloride Carbon Dioxide BUN Creatinine Glucose POC Glucose 118 H Lactic Acid Calcium Magnesium Iron TIBC Ferritin AST ALT Lactate Dehydrogenase Troponin T C-Reactive Protein Total Protein Albumin Prealbumin Cholesterol LDL Cholesterol Direct HDL Cholesterol Urine WBC (Auto) Vancomycin Trough Coronavirus (PCR) Crossmatch 07/14/19 07/14/19 07/14/19 04:40 05:38 05:45 WBC RBC Hgb Hct MCV MCH MCHC RDW Plt Count Lymph % (Auto) [place] % (Auto) Lymph # [place] # Baso # Seg Neutrophils % Seg Neuts % (Manual) Lymphocytes % (Manual) Monocytes % (Manual) Nucleated RBC % Seg Neutrophils # Seg Neutrophils # Man Lymphocytes # (Manual) Monocytes # (Manual) PT INR D-Dimer ABG pH 7.230 L ABG pO2 72.1 L ABG HCO3 ABG O2 Saturation 89.3 L ABG Base Excess -2.7 L ABG Hemoglobin 6.7 L Oxyhemoglobin 87.7 L Sodium Potassium Chloride 107.4 H Carbon Dioxide BUN 45 H Creatinine Glucose 101 H POC Glucose 154 H Lactic Acid Calcium Magnesium Iron TIBC Ferritin AST ALT Lactate Dehydrogenase Troponin T C-Reactive Protein Total Protein Albumin Prealbumin Cholesterol LDL Cholesterol Direct HDL Cholesterol Urine WBC (Auto) Vancomycin Trough Coronavirus (PCR) Crossmatch 07/14/19 07/14/19 07/14/19 12:25 18:20 19:01 WBC 22.4 H RBC 2.70 L Hgb 7.5 L Hct 23.3 L MCV MCH MCHC RDW 19.5 H Plt Count Lymph % (Auto) [place] % (Auto) Lymph # [place] # Baso # Seg Neutrophils % Seg Neuts % (Manual) Lymphocytes % (Manual) Monocytes % (Manual) Nucleated RBC % Seg Neutrophils # Seg Neutrophils # Man Lymphocytes # (Manual) Monocytes # (Manual) PT INR D-Dimer ABG pH ABG pO2 ABG HCO3 ABG O2 Saturation ABG Base Excess ABG Hemoglobin Oxyhemoglobin Sodium Potassium Chloride Carbon Dioxide BUN Creatinine Glucose POC Glucose 136 H 131 H Lactic Acid Calcium Magnesium Iron TIBC Ferritin AST ALT Lactate Dehydrogenase Troponin T C-Reactive Protein Total Protein Albumin Prealbumin Cholesterol LDL Cholesterol Direct HDL Cholesterol Urine WBC (Auto) Vancomycin Trough Coronavirus (PCR) Crossmatch 07/15/19 07/15/19 07/15/19 00:17 04:35 05:18 WBC 20.6 H RBC 2.41 L Hgb 6.8 L Hct 20.7 L MCV MCH MCHC RDW 20.2 H Plt Count Lymph % (Auto) [place] % (Auto) Lymph # [place] # Baso # Seg Neutrophils % Seg Neuts % (Manual) 92.0 H Lymphocytes % (Manual) 5.0 L Monocytes % (Manual) Nucleated RBC % Seg Neutrophils # Seg Neutrophils # Man 19.0 H Lymphocytes # (Manual) 1.0 L Monocytes # (Manual) PT INR D-Dimer ABG pH 7.342 L ABG pO2 ABG HCO3 ABG O2 Saturation ABG Base Excess -3.1 L ABG Hemoglobin 7.2 L Oxyhemoglobin 94.9 L Sodium Potassium Chloride Carbon Dioxide BUN Creatinine Glucose POC Glucose 116 H Lactic Acid Calcium Magnesium Iron TIBC Ferritin AST ALT Lactate Dehydrogenase Troponin T C-Reactive Protein Total Protein Albumin Prealbumin Cholesterol LDL Cholesterol Direct HDL Cholesterol Urine WBC (Auto) Vancomycin Trough Coronavirus (PCR) Crossmatch 07/15/19 07/15/19 07/15/19 05:18 05:57 11:28 WBC RBC Hgb Hct MCV MCH MCHC RDW Plt Count Lymph % (Auto) [place] % (Auto) Lymph # [place] # Baso # Seg Neutrophils % Seg Neuts % (Manual) Lymphocytes % (Manual) Monocytes % (Manual) Nucleated RBC % Seg Neutrophils # Seg Neutrophils # Man Lymphocytes # (Manual) Monocytes # (Manual) PT INR D-Dimer ABG pH ABG pO2 ABG HCO3 ABG O2 Saturation ABG Base Excess ABG Hemoglobin Oxyhemoglobin Sodium Potassium Chloride Carbon Dioxide 20 L BUN 59 H Creatinine Glucose 140 H POC Glucose 139 H 117 H Lactic Acid Calcium Magnesium Iron TIBC Ferritin AST ALT Lactate Dehydrogenase Troponin T C-Reactive Protein Total Protein Albumin Prealbumin Cholesterol LDL Cholesterol Direct HDL Cholesterol Urine WBC (Auto) Vancomycin Trough Coronavirus (PCR) Crossmatch 07/15/19 07/16/19 07/16/19 18:13 00:06 03:43 WBC RBC Hgb Hct MCV MCH MCHC RDW Plt Count Lymph % (Auto) [place] % (Auto) Lymph # [place] # Baso # Seg Neutrophils % Seg Neuts % (Manual) Lymphocytes % (Manual) Monocytes % (Manual) Nucleated RBC % Seg Neutrophils # Seg Neutrophils # Man Lymphocytes # (Manual) Monocytes # (Manual) PT INR D-Dimer ABG pH 7.344 L ABG pO2 68.6 L ABG HCO3 ABG O2 Saturation ABG Base Excess -3.5 L ABG Hemoglobin 6.1 L Oxyhemoglobin 93.3 L Sodium Potassium Chloride Carbon Dioxide BUN Creatinine Glucose POC Glucose 114 H 119 H Lactic Acid Calcium Magnesium Iron TIBC Ferritin AST ALT Lactate Dehydrogenase Troponin T C-Reactive Protein Total Protein Albumin Prealbumin Cholesterol LDL Cholesterol Direct HDL Cholesterol Urine WBC (Auto) Vancomycin Trough Coronavirus (PCR) Crossmatch 07/16/19 07/16/19 07/16/19 04:41 04:41 12:09 WBC 19.6 H RBC 2.81 L Hgb 7.7 L Hct 24.0 L MCV MCH 27 L MCHC RDW 19.4 H Plt Count 514 H Lymph % (Auto) 6.7 L [place] % (Auto) Lymph # Maury # 1.0 H Baso # Seg Neutrophils % 87.0 H Seg Neuts % (Manual) Lymphocytes % (Manual) Monocytes % (Manual) Nucleated RBC % Seg Neutrophils # 17.0 H Seg Neutrophils # Man Lymphocytes # (Manual) Monocytes # (Manual) PT INR D-Dimer ABG pH ABG pO2 ABG HCO3 ABG O2 Saturation ABG Base Excess ABG Hemoglobin Oxyhemoglobin Sodium Potassium 5.9 H Chloride Carbon Dioxide 21 L BUN 73 H Creatinine 2.0 H Glucose POC Glucose 141 H Lactic Acid Calcium Magnesium Iron TIBC Ferritin AST ALT Lactate Dehydrogenase Troponin T C-Reactive Protein Total Protein Albumin Prealbumin Cholesterol LDL Cholesterol Direct HDL Cholesterol Urine WBC (Auto) Vancomycin Trough Coronavirus (PCR) Crossmatch 07/16/19 07/16/19 07/17/19 16:19 17:45 00:16 WBC RBC Hgb Hct MCV MCH MCHC RDW Plt Count Lymph % (Auto) [place] % (Auto) Lymph # [place] # Baso # Seg Neutrophils % Seg Neuts % (Manual) Lymphocytes % (Manual) Monocytes % (Manual) Nucleated RBC % Seg Neutrophils # Seg Neutrophils # Man Lymphocytes # (Manual) Monocytes # (Manual) PT INR D-Dimer ABG pH ABG pO2 ABG HCO3 ABG O2 Saturation ABG Base Excess ABG Hemoglobin Oxyhemoglobin Sodium Potassium 5.1 H Chloride Carbon Dioxide 20 L BUN 72 H Creatinine 1.7 H Glucose 128 H POC Glucose 181 H 164 H Lactic Acid Calcium Magnesium Iron TIBC Ferritin AST ALT Lactate Dehydrogenase Troponin T C-Reactive Protein Total Protein Albumin Prealbumin Cholesterol LDL Cholesterol Direct HDL Cholesterol Urine WBC (Auto) Vancomycin Trough Coronavirus (PCR) Crossmatch 07/17/19 07/17/19 07/17/19 04:20 04:39 04:39 WBC 16.1 H RBC 2.92 L Hgb 8.0 L Hct 25.5 L MCV MCH MCHC 31 L RDW 19.7 H Plt Count 564 H Lymph % (Auto) 3.6 L Ma[place] % (Auto) 7.4 H Lymph # 0.6 L Maury # 1.2 H Baso # Seg Neutrophils % 87.5 H Seg Neuts % (Manual) Lymphocytes % (Manual) Monocytes % (Manual) Nucleated RBC % Seg Neutrophils # 14.1 H Seg Neutrophils # Man Lymphocytes # (Manual) Monocytes # (Manual) PT INR D-Dimer ABG pH 7.231 L ABG pO2 95.3 H ABG HCO3 ABG O2 Saturation ABG Base Excess -5.0 L ABG Hemoglobin 7.9 L Oxyhemoglobin 94.8 L Sodium Potassium Chloride 107.8 H Carbon Dioxide 21 L BUN 68 H Creatinine Glucose POC Glucose Lactic Acid Calcium Magnesium Iron TIBC Ferritin AST ALT Lactate Dehydrogenase Troponin T C-Reactive Protein Total Protein Albumin Prealbumin Cholesterol LDL Cholesterol Direct HDL Cholesterol Urine WBC (Auto) Vancomycin Trough Coronavirus (PCR) Crossmatch 07/17/19 07/17/19 07/17/19 05:28 12:11 18:48 WBC RBC Hgb Hct MCV MCH MCHC RDW Plt Count Lymph % (Auto) Ma[place] % (Auto) Lymph # [place] # Baso # Seg Neutrophils % Seg Neuts % (Manual) Lymphocytes % (Manual) Monocytes % (Manual) Nucleated RBC % Seg Neutrophils # Seg Neutrophils # Man Lymphocytes # (Manual) Monocytes # (Manual) PT INR D-Dimer ABG pH ABG pO2 ABG HCO3 ABG O2 Saturation ABG Base Excess ABG Hemoglobin Oxyhemoglobin Sodium Potassium Chloride Carbon Dioxide BUN Creatinine Glucose POC Glucose 121 H 125 H 174 H Lactic Acid Calcium Magnesium Iron TIBC Ferritin AST ALT Lactate Dehydrogenase Troponin T C-Reactive Protein Total Protein Albumin Prealbumin Cholesterol LDL Cholesterol Direct HDL Cholesterol Urine WBC (Auto) Vancomycin Trough Coronavirus (PCR) Crossmatch 07/17/19 07/17/19 07/18/19 19:55 23:57 02:30 WBC RBC Hgb Hct MCV MCH MCHC RDW Plt Count Lymph % (Auto) Ma[place] % (Auto) Lymph # [place] # Baso # Seg Neutrophils % Seg Neuts % (Manual) Lymphocytes % (Manual) Monocytes % (Manual) Nucleated RBC % Seg Neutrophils # Seg Neutrophils # Man Lymphocytes # (Manual) Monocytes # (Manual) PT INR D-Dimer ABG pH 7.344 L 7.294 L ABG pO2 78.5 L 119.2 H ABG HCO3 ABG O2 Saturation ABG Base Excess -3.3 L -2.6 L ABG Hemoglobin 8.6 L 8.1 L Oxyhemoglobin 94.8 L Sodium Potassium Chloride Carbon Dioxide BUN Creatinine Glucose POC Glucose 148 H Lactic Acid Calcium Magnesium Iron TIBC Ferritin AST ALT Lactate Dehydrogenase Troponin T C-Reactive Protein Total Protein Albumin Prealbumin Cholesterol LDL Cholesterol Direct HDL Cholesterol Urine WBC (Auto) Vancomycin Trough Coronavirus (PCR) Crossmatch 07/18/19 07/18/19 07/18/19 04:49 05:22 05:22 WBC 15.9 H RBC 3.00 L Hgb 8.1 L Hct 26.0 L MCV MCH 27 L MCHC 31 L RDW 19.4 H Plt Count 733 H Lymph % (Auto) 6.3 L Ma[place] % (Auto) 7.4 H Lymph # 1.0 L Ma[place] # 1.2 H Baso # 0.2 H Seg Neutrophils % 83.8 H Seg Neuts % (Manual) Lymphocytes % (Manual) Monocytes % (Manual) Nucleated RBC % Seg Neutrophils # 13.3 H Seg Neutrophils # Man Lymphocytes # (Manual) Monocytes # (Manual) PT INR D-Dimer ABG pH ABG pO2 ABG HCO3 ABG O2 Saturation ABG Base Excess ABG Hemoglobin Oxyhemoglobin Sodium Potassium Chloride 110.6 H Carbon Dioxide BUN 61 H Creatinine Glucose 109 H POC Glucose 116 H Lactic Acid Calcium Magnesium Iron TIBC Ferritin AST ALT Lactate Dehydrogenase Troponin T C-Reactive Protein Total Protein Albumin Prealbumin Cholesterol LDL Cholesterol Direct HDL Cholesterol Urine WBC (Auto) Vancomycin Trough Coronavirus (PCR) Crossmatch 07/18/19 07/18/19 07/18/19 12:23 18:06 22:20 WBC RBC Hgb Hct MCV MCH MCHC RDW Plt Count Lymph % (Auto) Maury % (Auto) Lymph # [place] # Baso # Seg Neutrophils % Seg Neuts % (Manual) Lymphocytes % (Manual) Monocytes % (Manual) Nucleated RBC % Seg Neutrophils # Seg Neutrophils # Man Lymphocytes # (Manual) Monocytes # (Manual) PT INR D-Dimer ABG pH 7.338 L ABG pO2 135.1 H ABG HCO3 ABG O2 Saturation ABG Base Excess ABG Hemoglobin 9.2 L Oxyhemoglobin Sodium Potassium Chloride Carbon Dioxide BUN Creatinine Glucose POC Glucose 114 H 113 H Lactic Acid Calcium Magnesium Iron TIBC Ferritin AST ALT Lactate Dehydrogenase Troponin T C-Reactive Protein Total Protein Albumin Prealbumin Cholesterol LDL Cholesterol Direct HDL Cholesterol Urine WBC (Auto) Vancomycin Trough Coronavirus (PCR) Crossmatch 07/18/19 07/19/19 07/19/19 23:33 03:45 05:18 WBC RBC Hgb Hct MCV MCH MCHC RDW Plt Count Lymph % (Auto) Maury % (Auto) Lymph # [place] # Baso # Seg Neutrophils % Seg Neuts % (Manual) Lymphocytes % (Manual) Monocytes % (Manual) Nucleated RBC % Seg Neutrophils # Seg Neutrophils # Man Lymphocytes # (Manual) Monocytes # (Manual) PT INR D-Dimer ABG pH 7.342 L ABG pO2 95.0 H ABG HCO3 ABG O2 Saturation ABG Base Excess ABG Hemoglobin 8.5 L Oxyhemoglobin Sodium Potassium Chloride Carbon Dioxide BUN Creatinine Glucose POC Glucose 125 H 111 H Lactic Acid Calcium Magnesium Iron TIBC Ferritin AST ALT Lactate Dehydrogenase Troponin T C-Reactive Protein Total Protein Albumin Prealbumin Cholesterol LDL Cholesterol Direct HDL Cholesterol Urine WBC (Auto) Vancomycin Trough Coronavirus (PCR) Crossmatch 07/19/19 07/19/19 07/19/19 08:45 08:45 11:47 WBC 15.9 H RBC 3.31 L Hgb 9.1 L Hct 28.4 L MCV MCH 27 L MCHC RDW 19.1 H Plt Count 858 H Lymph % (Auto) 4.9 L [place] % (Auto) 8.1 H Lymph # 0.8 L Ma[place] # 1.3 H Baso # Seg Neutrophils % 85.5 H Seg Neuts % (Manual) Lymphocytes % (Manual) Monocytes % (Manual) Nucleated RBC % Seg Neutrophils # 13.6 H Seg Neutrophils # Man Lymphocytes # (Manual) Monocytes # (Manual) PT INR D-Dimer ABG pH ABG pO2 ABG HCO3 ABG O2 Saturation ABG Base Excess ABG Hemoglobin Oxyhemoglobin Sodium Potassium Chloride 111.6 H Carbon Dioxide BUN 50 H Creatinine 0.7 L Glucose 118 H POC Glucose 114 H Lactic Acid Calcium Magnesium Iron TIBC Ferritin AST ALT Lactate Dehydrogenase Troponin T C-Reactive Protein Total Protein Albumin Prealbumin Cholesterol LDL Cholesterol Direct HDL Cholesterol Urine WBC (Auto) Vancomycin Trough Coronavirus (PCR) Crossmatch 07/19/19 07/19/19 07/20/19 18:25 23:44 04:39 WBC RBC Hgb Hct MCV MCH MCHC RDW Plt Count Lymph % (Auto) Maury % (Auto) Lymph # [place] # Baso # Seg Neutrophils % Seg Neuts % (Manual) Lymphocytes % (Manual) Monocytes % (Manual) Nucleated RBC % Seg Neutrophils # Seg Neutrophils # Man Lymphocytes # (Manual) Monocytes # (Manual) PT INR D-Dimer ABG pH ABG pO2 ABG HCO3 ABG O2 Saturation ABG Base Excess ABG Hemoglobin Oxyhemoglobin Sodium Potassium Chloride 110.3 H Carbon Dioxide BUN 44 H Creatinine 0.6 L Glucose 120 H POC Glucose 115 H 117 H Lactic Acid Calcium Magnesium Iron TIBC Ferritin AST ALT Lactate Dehydrogenase Troponin T C-Reactive Protein Total Protein Albumin Prealbumin Cholesterol LDL Cholesterol Direct HDL Cholesterol Urine WBC (Auto) Vancomycin Trough Coronavirus (PCR) Crossmatch 07/20/19 07/21/19 07/21/19 05:30 11:59 17:40 WBC RBC Hgb Hct MCV MCH MCHC RDW Plt Count Lymph % (Auto) Ma[place] % (Auto) Lymph # [place] # Baso # Seg Neutrophils % Seg Neuts % (Manual) Lymphocytes % (Manual) Monocytes % (Manual) Nucleated RBC % Seg Neutrophils # Seg Neutrophils # Man Lymphocytes # (Manual) Monocytes # (Manual) PT INR D-Dimer ABG pH ABG pO2 ABG HCO3 ABG O2 Saturation ABG Base Excess ABG Hemoglobin Oxyhemoglobin Sodium Potassium Chloride Carbon Dioxide BUN Creatinine Glucose POC Glucose 131 H 122 H 125 H Lactic Acid Calcium Magnesium Iron TIBC Ferritin AST ALT Lactate Dehydrogenase Troponin T C-Reactive Protein Total Protein Albumin Prealbumin Cholesterol LDL Cholesterol Direct HDL Cholesterol Urine WBC (Auto) Vancomycin Trough Coronavirus (PCR) Crossmatch 07/22/19 07/22/19 07/22/19 05:38 05:38 12:29 WBC 12.6 H RBC 3.19 L Hgb 8.9 L Hct 27.5 L MCV MCH MCHC RDW 18.9 H Plt Count 1101 H* Lymph % (Auto) Maury % (Auto) 12.2 H Lymph # Maury # 1.5 H Baso # Seg Neutrophils % 72.8 H Seg Neuts % (Manual) 76.0 H Lymphocytes % (Manual) 7.0 L Monocytes % (Manual) 14.0 H Nucleated RBC % 1.0 H Seg Neutrophils # 9.2 H Seg Neutrophils # Man 9.6 H Lymphocytes # (Manual) 0.9 L Monocytes # (Manual) 1.8 H PT INR D-Dimer ABG pH ABG pO2 ABG HCO3 ABG O2 Saturation ABG Base Excess ABG Hemoglobin Oxyhemoglobin Sodium Potassium 3.4 L Chloride Carbon Dioxide BUN 29 H Creatinine 0.5 L Glucose POC Glucose 116 H Lactic Acid Calcium Magnesium Iron TIBC Ferritin AST ALT Lactate Dehydrogenase Troponin T C-Reactive Protein Total Protein Albumin Prealbumin Cholesterol LDL Cholesterol Direct HDL Cholesterol Urine WBC (Auto) Vancomycin Trough Coronavirus (PCR) Crossmatch 07/22/19 07/22/19 07/23/19 18:20 23:51 04:52 WBC RBC Hgb Hct MCV MCH MCHC RDW Plt Count Lymph % (Auto) Maury % (Auto) Lymph # Maury # Baso # Seg Neutrophils % Seg Neuts % (Manual) Lymphocytes % (Manual) Monocytes % (Manual) Nucleated RBC % Seg Neutrophils # Seg Neutrophils # Man Lymphocytes # (Manual) Monocytes # (Manual) PT INR D-Dimer ABG pH ABG pO2 ABG HCO3 ABG O2 Saturation ABG Base Excess ABG Hemoglobin Oxyhemoglobin Sodium Potassium Chloride Carbon Dioxide BUN 24 H Creatinine 0.4 L Glucose POC Glucose 107 H 110 H Lactic Acid Calcium Magnesium Iron TIBC Ferritin AST ALT Lactate Dehydrogenase Troponin T C-Reactive Protein Total Protein Albumin Prealbumin Cholesterol LDL Cholesterol Direct HDL Cholesterol Urine WBC (Auto) Vancomycin Trough Coronavirus (PCR) Crossmatch 07/23/19 07/23/19 07/24/19 06:00 23:15 04:40 WBC RBC Hgb Hct MCV MCH MCHC RDW Plt Count Lymph % (Auto) Ma[place] % (Auto) Lymph # [place] # Baso # Seg Neutrophils % Seg Neuts % (Manual) Lymphocytes % (Manual) Monocytes % (Manual) Nucleated RBC % Seg Neutrophils # Seg Neutrophils # Man Lymphocytes # (Manual) Monocytes # (Manual) PT INR D-Dimer ABG pH ABG pO2 73.5 L ABG HCO3 27.0 H 28.5 H ABG O2 Saturation 94.5 L ABG Base Excess ABG Hemoglobin 9.4 L 8.9 L Oxyhemoglobin 94.0 L 92.7 L Sodium Potassium Chloride Carbon Dioxide BUN Creatinine Glucose POC Glucose 117 H Lactic Acid Calcium Magnesium Iron TIBC Ferritin AST ALT Lactate Dehydrogenase Troponin T C-Reactive Protein Total Protein Albumin Prealbumin Cholesterol LDL Cholesterol Direct HDL Cholesterol Urine WBC (Auto) Vancomycin Trough Coronavirus (PCR) Crossmatch 07/24/19 07/24/19 07/25/19 05:25 12:06 00:16 WBC RBC Hgb Hct MCV MCH MCHC RDW Plt Count Lymph % (Auto) Maury % (Auto) Lymph # Maury # Baso # Seg Neutrophils % Seg Neuts % (Manual) Lymphocytes % (Manual) Monocytes % (Manual) Nucleated RBC % Seg Neutrophils # Seg Neutrophils # Man Lymphocytes # (Manual) Monocytes # (Manual) PT INR D-Dimer ABG pH ABG pO2 ABG HCO3 ABG O2 Saturation ABG Base Excess ABG Hemoglobin Oxyhemoglobin Sodium Potassium Chloride Carbon Dioxide BUN Creatinine Glucose POC Glucose 114 H 108 H 106 H Lactic Acid Calcium Magnesium Iron TIBC Ferritin AST ALT Lactate Dehydrogenase Troponin T C-Reactive Protein Total Protein Albumin Prealbumin Cholesterol LDL Cholesterol Direct HDL Cholesterol Urine WBC (Auto) Vancomycin Trough Coronavirus (PCR) Crossmatch 07/25/19 07/25/19 07/25/19 05:14 05:14 05:17 WBC 17.8 H RBC 3.32 L Hgb 9.2 L Hct 28.6 L MCV MCH MCHC RDW 19.9 H Plt Count 994 H Lymph % (Auto) Maury % (Auto) Lymph # Maury # Baso # Seg Neutrophils % Seg Neuts % (Manual) 82.0 H Lymphocytes % (Manual) 5.0 L Monocytes % (Manual) Nucleated RBC % Seg Neutrophils # Seg Neutrophils # Man 14.6 H Lymphocytes # (Manual) 0.9 L Monocytes # (Manual) 1.2 H PT INR D-Dimer ABG pH ABG pO2 ABG HCO3 ABG O2 Saturation ABG Base Excess ABG Hemoglobin Oxyhemoglobin Sodium Potassium Chloride Carbon Dioxide BUN Creatinine 0.4 L Glucose 110 H POC Glucose 107 H Lactic Acid Calcium Magnesium Iron TIBC Ferritin AST ALT Lactate Dehydrogenase Troponin T C-Reactive Protein Total Protein Albumin Prealbumin Cholesterol LDL Cholesterol Direct HDL Cholesterol Urine WBC (Auto) Vancomycin Trough Coronavirus (PCR) Crossmatch 07/25/19 07/25/19 07/26/19 11:55 23:49 06:01 WBC RBC Hgb Hct MCV MCH MCHC RDW Plt Count Lymph % (Auto) Maury % (Auto) Lymph # Maury # Baso # Seg Neutrophils % Seg Neuts % (Manual) Lymphocytes % (Manual) Monocytes % (Manual) Nucleated RBC % Seg Neutrophils # Seg Neutrophils # Man Lymphocytes # (Manual) Monocytes # (Manual) PT INR D-Dimer ABG pH ABG pO2 ABG HCO3 ABG O2 Saturation ABG Base Excess ABG Hemoglobin Oxyhemoglobin Sodium Potassium Chloride Carbon Dioxide BUN Creatinine Glucose POC Glucose 123 H 118 H 106 H Lactic Acid Calcium Magnesium Iron TIBC Ferritin AST ALT Lactate Dehydrogenase Troponin T C-Reactive Protein Total Protein Albumin Prealbumin Cholesterol LDL Cholesterol Direct HDL Cholesterol Urine WBC (Auto) Vancomycin Trough Coronavirus (PCR) Crossmatch 07/26/19 07/27/19 07/27/19 17:02 00:28 05:16 WBC RBC Hgb Hct MCV MCH MCHC RDW Plt Count Lymph % (Auto) Maury % (Auto) Lymph # Maury # Baso # Seg Neutrophils % Seg Neuts % (Manual) Lymphocytes % (Manual) Monocytes % (Manual) Nucleated RBC % Seg Neutrophils # Seg Neutrophils # Man Lymphocytes # (Manual) Monocytes # (Manual) PT INR D-Dimer ABG pH ABG pO2 63.4 L ABG HCO3 31.3 H ABG O2 Saturation 92.7 L ABG Base Excess 6.3 H ABG Hemoglobin 7.6 L Oxyhemoglobin 90.9 L Sodium Potassium Chloride Carbon Dioxide BUN Creatinine Glucose POC Glucose 116 H 158 H Lactic Acid Calcium Magnesium Iron TIBC Ferritin AST ALT Lactate Dehydrogenase Troponin T C-Reactive Protein Total Protein Albumin Prealbumin Cholesterol LDL Cholesterol Direct HDL Cholesterol Urine WBC (Auto) Vancomycin Trough Coronavirus (PCR) Crossmatch 07/28/19 07/28/19 07/28/19 10:13 10:13 23:54 WBC 18.5 H RBC 3.20 L Hgb 8.8 L Hct 26.8 L MCV MCH 27 L MCHC RDW 19.9 H Plt Count 730 H Lymph % (Auto) Maury % (Auto) Lymph # Maury # Baso # Seg Neutrophils % Seg Neuts % (Manual) Lymphocytes % (Manual) Monocytes % (Manual) Nucleated RBC % Seg Neutrophils # Seg Neutrophils # Man Lymphocytes # (Manual) Monocytes # (Manual) PT INR D-Dimer ABG pH ABG pO2 ABG HCO3 ABG O2 Saturation ABG Base Excess ABG Hemoglobin Oxyhemoglobin Sodium Potassium 3.2 L Chloride 97.5 L Carbon Dioxide 31 H BUN Creatinine 0.5 L Glucose POC Glucose 120 H Lactic Acid Calcium Magnesium Iron TIBC Ferritin AST ALT Lactate Dehydrogenase Troponin T C-Reactive Protein Total Protein Albumin Prealbumin Cholesterol LDL Cholesterol Direct HDL Cholesterol Urine WBC (Auto) Vancomycin Trough Coronavirus (PCR) Crossmatch 07/29/19 07/29/19 07/29/19 11:57 17:43 Unknown WBC RBC Hgb Hct MCV MCH MCHC RDW Plt Count Lymph % (Auto) Maury % (Auto) Lymph # Maury # Baso # Seg Neutrophils % Seg Neuts % (Manual) Lymphocytes % (Manual) Monocytes % (Manual) Nucleated RBC % Seg Neutrophils # Seg Neutrophils # Man Lymphocytes # (Manual) Monocytes # (Manual) PT INR D-Dimer ABG pH ABG pO2 ABG HCO3 ABG O2 Saturation ABG Base Excess ABG Hemoglobin Oxyhemoglobin Sodium Potassium Chloride Carbon Dioxide BUN Creatinine Glucose POC Glucose 112 H Lactic Acid Calcium Magnesium Iron TIBC Ferritin AST ALT Lactate Dehydrogenase Troponin T C-Reactive Protein Total Protein Albumin Prealbumin Cholesterol LDL Cholesterol Direct HDL Cholesterol Urine WBC (Auto) 63.0 H Vancomycin Trough Coronavirus (PCR) Positive A Crossmatch 07/30/19 07/30/19 07/30/19 00:20 04:35 04:35 WBC 24.3 H RBC 3.12 L Hgb 8.5 L Hct 26.3 L MCV MCH 27 L MCHC RDW 20.2 H Plt Count 550 H Lymph % (Auto) Maury % (Auto) Lymph # Maury # Baso # Seg Neutrophils % Seg Neuts % (Manual) Lymphocytes % (Manual) Monocytes % (Manual) Nucleated RBC % Seg Neutrophils # Seg Neutrophils # Man Lymphocytes # (Manual) Monocytes # (Manual) PT INR D-Dimer ABG pH ABG pO2 ABG HCO3 ABG O2 Saturation ABG Base Excess ABG Hemoglobin Oxyhemoglobin Sodium Potassium 3.0 L Chloride 96.3 L Carbon Dioxide 32 H BUN Creatinine 0.5 L Glucose POC Glucose 106 H Lactic Acid Calcium Magnesium Iron TIBC Ferritin AST ALT Lactate Dehydrogenase Troponin T C-Reactive Protein Total Protein Albumin Prealbumin Cholesterol LDL Cholesterol Direct HDL Cholesterol Urine WBC (Auto) Vancomycin Trough Coronavirus (PCR) Crossmatch 07/31/19 07/31/19 07/31/19 04:42 04:42 11:33 WBC 23.8 H RBC 3.10 L Hgb 8.4 L Hct 26.1 L MCV MCH 27 L MCHC RDW 19.6 H Plt Count 561 H Lymph % (Auto) Maury % (Auto) Lymph # Maury # Baso # Seg Neutrophils % Seg Neuts % (Manual) Lymphocytes % (Manual) Monocytes % (Manual) Nucleated RBC % Seg Neutrophils # Seg Neutrophils # Man Lymphocytes # (Manual) Monocytes # (Manual) PT INR D-Dimer ABG pH ABG pO2 ABG HCO3 ABG O2 Saturation ABG Base Excess ABG Hemoglobin Oxyhemoglobin Sodium 135 L Potassium Chloride 93.9 L Carbon Dioxide 32 H BUN Creatinine 0.4 L Glucose POC Glucose 116 H Lactic Acid Calcium Magnesium Iron TIBC Ferritin AST ALT Lactate Dehydrogenase Troponin T C-Reactive Protein Total Protein Albumin 1.6 L Prealbumin 0.037 L Cholesterol LDL Cholesterol Direct HDL Cholesterol Urine WBC (Auto) Vancomycin Trough Coronavirus (PCR) Crossmatch 07/31/19 08/01/19 08/01/19 23:33 04:57 04:57 WBC 26.7 H RBC 3.12 L Hgb 8.5 L Hct 26.3 L MCV MCH 27 L MCHC RDW 19.2 H Plt Count 602 H Lymph % (Auto) Maury % (Auto) Lymph # Maury # Baso # Seg Neutrophils % Seg Neuts % (Manual) 93.0 H Lymphocytes % (Manual) 2.0 L Monocytes % (Manual) Nucleated RBC % Seg Neutrophils # Seg Neutrophils # Man 24.8 H Lymphocytes # (Manual) 0.5 L Monocytes # (Manual) 1.1 H PT INR D-Dimer ABG pH ABG pO2 ABG HCO3 ABG O2 Saturation ABG Base Excess ABG Hemoglobin Oxyhemoglobin Sodium 132 L Potassium Chloride 93.8 L Carbon Dioxide 31 H BUN Creatinine 0.3 L Glucose POC Glucose 148 H Lactic Acid Calcium 8.1 L Magnesium Iron TIBC Ferritin AST ALT Lactate Dehydrogenase Troponin T C-Reactive Protein Total Protein Albumin Prealbumin Cholesterol LDL Cholesterol Direct HDL Cholesterol Urine WBC (Auto) Vancomycin Trough Coronavirus (PCR) Crossmatch 08/01/19 08/02/19 08/02/19 12:16 00:22 05:24 WBC RBC Hgb Hct MCV MCH MCHC RDW Plt Count Lymph % (Auto) Maury % (Auto) Lymph # Maury # Baso # Seg Neutrophils % Seg Neuts % (Manual) Lymphocytes % (Manual) Monocytes % (Manual) Nucleated RBC % Seg Neutrophils # Seg Neutrophils # Man Lymphocytes # (Manual) Monocytes # (Manual) PT INR D-Dimer ABG pH ABG pO2 ABG HCO3 ABG O2 Saturation ABG Base Excess ABG Hemoglobin Oxyhemoglobin Sodium Potassium Chloride Carbon Dioxide BUN Creatinine Glucose POC Glucose 120 H 119 H 113 H Lactic Acid Calcium Magnesium Iron TIBC Ferritin AST ALT Lactate Dehydrogenase Troponin T C-Reactive Protein Total Protein Albumin Prealbumin Cholesterol LDL Cholesterol Direct HDL Cholesterol Urine WBC (Auto) Vancomycin Trough Coronavirus (PCR) Crossmatch Allied health notes reviewed: nursing
--- NOTE | 2019-08-03 12:54 | Progress Note ---
Assessment and Plan Assessment and plan: --COVid positive pneumonia with severe sepsis Received Plaquenil and cefepime, monitor off antibiotics ID following --Septic shock: On Levophed Persistent hypotension, titrate to systolic blood pressure more than 100 -- Acute respiratory Failure with Hypoxia Due to bilateral PNA with COVID 19 infection. On ventilatory support, unable to wean Pulmonary critical following --COPD with exacerbation Likely due to COVID-19 pneumonia Continue scheduled nebs --Anemia, Microcytic persistent s/p total 3 unit of PRBC, today Hb today 9.1 --Pressure Ulcers: POA buttocks, right lateral foot area wound and supportive care --Hyponatremia, resolved --DM type 2: Accu-Chek SCC tube feeding, insulin as needed --h/o HTN Essential, now hypotensive On Levophed --Seizure D/o/CVA/immobility/BIpolar D/o/SCZ Seizure precautions, antiepileptic medications --Severe PCM, TF supportive care, dietary following patient is DNR- Called and verified information Very poor prognosis, Recommend hospice 07/04: COVID +ve, start on plaquinil, called no answer 07/05: transfuse one unit PRBC, Hb dropped to ~6, called and updated 07/06; H&H stable, serum chemistry improved. On mechanical ventilation with high inflammatory markers. Continue Plaquenil and empiric antibiotics. ID following, prognosis remains guarded and extremely poor. 07/07: On mechanical ventilation with high inflammatory markers. Continue Plaquenil and empiric antibiotics. ID following, prognosis remains guarded and extremely poor. 07/08: Called today and verified the CODE STATUS. Patient remains DNR. He is still intubated, with poor prognosis. Continue to follow inflammatory markers. 07/09 wean off from vent as tolerated, completed empiric antibiotic and Plaquenil 07/10 wean off from vent as tolerated. poor prognosis 07/11 hb 6.7 today, transfuse one PRBC. wean off from vent as tolerated. poor prognosis 07/12 remains critically on vent. Hb 6.9 07/13 Hb dropped to 6.6, transfuse 1 unit of PRBC, remains on vent critically ill Hypotensive, fluid bolus, if no improvement start Levophed 07/14; remains anemic with hemoglobin of 6.8, received total 3 units of PRBC Additional 1 unit of PRBC today, stool for occult blood to rule out GI causes Started back on Levophed due to hypotension 07/15; patient remains critically ill, hypotensive on Levophed 07/16: Today remains intubated on vent, persistent hypotension on Levophed 07/17; clinically no change, pressor dependent[on Levophed] DNR status 07/18: Patient remains hypotensive requiring Levophed, intubated on vent Unable to wean, critically ill. DNR 07/20/2019 Patient remains hypotensive requiring Levophed, intubated on vent. Patient currently with AC mode ventilation, rate 20, tidal volume 500, FiO2 40% and PEEP 6. Patient is a poor prognosis and apparently was on hospice recently. 07/21/2019. Patient with PEG tube that was clogged yesterday. surgery evaluated the patient and noted Very long PEG tubing with thick material inside. The ent celsa tube was stripped and a large amount of formed tube feed was expressed. The tube was then flushed with sprite and flushed easily. Tube clamped. Patient currently with AC mode ventilation, rate 20, tidal volume 500, FiO2 40% and PEEP 6. Patient is a poor prognosis and apparently was on hospice recently. 07/22/2019. Patient currently with AC mode ventilation, rate 20, tidal volume 500, FiO2 30% and PEEP 6. Patient on sedation with fentanyl drip. Continue Levophed to maintain MAP greater than 65. Patient is a poor prognosis and apparently was on hospice recently. 07/23/2019. Patient currently with AC mode ventilation, rate 20, tidal volume 500, FiO2 30% and PEEP 6. Patient on sedation with fentanyl drip. Continue Levophed to maintain MAP greater than 65. Patient is a poor prognosis and apparently was on hospice recently. 07/24/2019 Patient with Covid-19 infection with pneumonia, acute respiratory failure, intubated on ventilator. No more fever. Continue current management. 07/25/2019 Patient with Covid-19 infection with pneumonia, acute respiratory failure, intubated on ventilator. fever is now resolved. Sedated with propofol 07/26/2019 Patient with covid-19 infection. Still intubated, on vent. 07/27/2019 Patient with Covid-19. he is still critically ill. patient has DNR order. 07/28/2019 Patient with Covid-19 infection. Will repeat labs today. Surgeon consulted for tracheostomy. 07/29/2019 Patient with Covid-19. hypokalemia yesterday, replaced. Will recheck labs in am. 07/30/2019 patient with Covid-19 infection with acute respiratory failure. He is intubated on ventilator. has hypokalemia. replace and recheck BMP in am. patient has UTI, started on Cefepime. 07/31/2019. patient with Covid-19 infection with acute respiratory failure. He is intubated on ventilator. Repeat chest x-ray reveals decreased infiltrates. urology consultation and wound care consult per ID. Follow-up urine and blood culture. Tracheostomy per surgery. 08/01/2019. patient with Covid-19 infection with acute respiratory failure. He is intubated on ventilator. Patient currently with PSV trials. Pressure support 18/PEEP 6. FiO2 30%. Tracheostomy to be placed per surgery wound COVID testing negative. 08/02/2019. Patient with COVID-19 infection and acute respiratory failure on mechanical ventilation. Continue with PSVT trials with pressure support increased to 20. Follow-up serial chest x-ray. Continue Fentanyl infusion and wean sedation as tolerated. Continue daily spontaneous breathing trials. 08/03/2019. Patient with COVID-19 infection and acute respiratory failure on mechanical ventilation. Continue with PSV trials with pressure support increased to 20. Follow-up serial chest x-ray. Continue Fentanyl infusion and wean sedation as tolerated. Continue daily spontaneous breathing trials. The high probability of a clinically significant, sudden or life threatening deterioration of the [respiratory, CVS, COOK FRY] system(s) required my full and direct attention, intervention and personal management. The aggregate critical care time was [31] minutes. This time is in addition to time spent performing reported procedures but includes the following: [x] Data Review and interpretation [x] Patient assessment and monitoring of vital signs [x] Documentation [x] Medication orders and management History Interval history: 69-year-old male patient with PMH of CVA with RHP, HTN, DM2, SCZ, Dementia, Alcohol use D/o, Seizure D/O, presents to the emergency department via EMS from home with progressive SOB and impending espiratory failure with an unresponsive . PT was intubated was admitted through emergency room to ICU treated for sepsis, b/l PNA, acute respiratory failure received antibiotics. Patient was tested positive for COVID19. Evaluated by ID , received antibiotics Plaquenil, and inflammatory markers were checked and followed. Patient was hypotensive requiring Levophed, continues to be hypotensive currently on Levophed, unable to wean remains intubated on ventilatory support, critically ill, DNR status however family wants full treatment. Hospitalist Physical - Constitutional Vitals: Temp Pulse Resp BP Pulse Ox 99.7 F H 111 H 18 107/42 98 08/03/19 12:00 08/03/19 12:00 08/03/19 12:00 08/03/19 12:00 08/03/19 12:00 General appearance: Present: severe distress, well-nourished, other (Orally int ubated on vent) - EENT Eyes: Present: PERRL, EOM intact ENT: hearing intact, clear oral mucosa, dentition normal - Neck Neck: Present: supple, normal ROM - Respiratory Respiratory effort: normal Respiratory: bilateral: CTA - Cardiovascular Rhythm: regular Heart Sounds: Present: S1 & S2. Absent: gallop, rub - Extremities Extremities: no ischemia, No edema, Full ROM - Abdominal General gastrointestinal: soft, non-tender, non-distended, normal bowel sounds - Integumentary Integumentary: Present: clear, warm, dry - Neurologic Neurologic: CNII-XII intact, moves all extremities HEART Score - HEART Score Troponin: Troponin T 0.013 ng/mL (0.00-0.029) 07/04/19 07:05 Results - Labs CBC & Chem 7: 08/01/19 04:57 08/01/19 04:57 Labs: Laboratory Last Values WBC 26.7 K/mm3 (4.5-11.0) H 08/01/19 04:57 RBC 3.12 M/mm3 (3.65-5.03) L 08/01/19 04:57 Hgb 8.5 gm/dl (11.8-15.2) L 08/01/19 04:57 Hct 26.3 % (35.5-45.6) L 08/01/19 04:57 MCV 84 fl (84-94) 08/01/19 04:57 MCH 27 pg (28-32) L 08/01/19 04:57 MCHC 32 % (32-34) 08/01/19 04:57 RDW 19.2 % (13.2-15.2) H 08/01/19 04:57 Plt Count 602 K/mm3 (140-440) H 08/01/19 04:57 Lymph % (Auto) 4.9 % (13.4-35.0) L 07/19/19 08:45 [place] % (Auto) 12.2 % (0.0-7.3) H 07/22/19 05:38 Eos % (Auto) 1.0 % (0.0-4.3) 07/19/19 08:45 Baso % (Auto) 0.5 % (0.0-1.8) 07/19/19 08:45 Lymph # 0.8 K/mm3 (1.2-5.4) L 07/19/19 08:45 [place] # 1.5 K/mm3 (0.0-0.8) H 07/22/19 05:38 Eos # 0.2 K/mm3 (0.0-0.4) 07/19/19 08:45 Baso # 0.1 K/mm3 (0.0-0.1) 07/19/19 08:45 Add Manual Diff Complete 08/01/19 04:57 Total Counted 100 08/01/19 04:57 Seg Neutrophils % 72.8 % (40.0-70.0) H 07/22/19 05:38 Seg Neuts % (Manual) 93.0 % (40.0-70.0) H 08/01/19 04:57 Band Neutrophils % 0 % 08/01/19 04:57 Lymphocytes % (Manual) 2.0 % (13.4-35.0) L 08/01/19 04:57 Reactive Lymphs % (Man) 0 % 08/01/19 04:57 Monocytes % (Manual) 4.0 % (0.0-7.3) 08/01/19 04:57 Eosinophils % (Manual) 0 % (0.0-4.3) 08/01/19 04:57 Basophils % (Manual) 0 % (0.0-1.8) 08/01/19 04:57 Metamyelocytes % 0 % 08/01/19 04:57 Myelocytes % 1.0 % 08/01/19 04:57 Promyelocytes % 0 % 08/01/19 04:57 Blast Cells % 0 % 08/01/19 04:57 Nucleated RBC % Not Reportable 08/01/19 04:57 Seg Neutrophils # 9.2 K/mm3 (1.8-7.7) H 07/22/19 05:38 Seg Neutrophils # Man 24.8 K/mm3 (1.8-7.7) H 08/01/19 04:57 Band Neutrophils # 0.0 K/mm3 08/01/19 04:57 Lymphocytes # (Manual) 0.5 K/mm3 (1.2-5.4) L 08/01/19 04:57 Abs React Lymphs (Man) 0.0 K/mm3 08/01/19 04:57 Monocytes # (Manual) 1.1 K/mm3 (0.0-0.8) H 08/01/19 04:57 Eosinophils # (Manual) 0.0 K/mm3 (0.0-0.4) 08/01/19 04:57 Basophils # (Manual) 0.0 K/mm3 (0.0-0.1) 08/01/19 04:57 Metamyelocytes # 0.0 K/mm3 08/01/19 04:57 Myelocytes # 0.3 K/mm3 08/01/19 04:57 Promyelocytes # 0.0 K/mm3 08/01/19 04:57 Blast Cells # 0.0 K/mm3 08/01/19 04:57 WBC Morphology Not Reportable 08/01/19 04:57 Hypersegmented Neuts Not Reportable 08/01/19 04:57 Hyposegmented Neuts Not Reportable 08/01/19 04:57 Hypogranular Neuts Not Reportable 08/01/19 04:57 Smudge Cells Not Reportable 08/01/19 04:57 Toxic Granulation Not Reportable 08/01/19 04:57 Toxic Vacuolation Not Reportable 08/01/19 04:57 Dohle Bodies Not Reportable 08/01/19 04:57 Pelger-Huet Anomaly Not Reportable 08/01/19 04:57 Mendy Rods Not Reportable 08/01/19 04:57 Platelet Estimate Consistent w auto 08/01/19 04:57 Clumped Platelets Not Reportable 08/01/19 04:57 Plt Clumps, EDTA Not Reportable 08/01/19 04:57 Large Platelets Not Reportable 08/01/19 04:57 Giant Platelets Not Reportable 08/01/19 04:57 Platelet Satelliting Not Reportable 08/01/19 04:57 Plt Morphology Comment Not Reportable 08/01/19 04:57 RBC Morphology Not Reportable 08/01/19 04:57 Dimorphic RBCs Not Reportable 08/01/19 04:57 Polychromasia Not Reportable 08/01/19 04:57 Hypochromasia 1+ 08/01/19 04:57 Poikilocytosis Not Reportable 08/01/19 04:57 Anisocytosis 1+ 08/01/19 04:57 Microcytosis Not Reportable 08/01/19 04:57 Macrocytosis Not Reportable 08/01/19 04:57 Spherocytes Not Reportable 08/01/19 04:57 Pappenheimer Bodies Not Reportable 08/01/19 04:57 Sickle Cells Not Reportable 08/01/19 04:57 Target Cells Not Reportable 08/01/19 04:57 Tear Drop Cells Not Reportable 08/01/19 04:57 Ovalocytes Not Reportable 08/01/19 04:57 Stomatocytes Few 08/01/19 04:57 Helmet Cells Not Reportable 08/01/19 04:57 [place] Bodies Not Reportable 08/01/19 04:57 [place] Rings Not Reportable 08/01/19 04:57 [place]s Cells Not Reportable 08/01/19 04:57 Bite Cells Not Reportable 08/01/19 04:57 Crenated Cell Not Reportable 08/01/19 04:57 Elliptocytes Not Reportable 08/01/19 04:57 Acanthocytes (Spur) Not Reportable 08/01/19 04:57 Rouleaux Not Reportable 08/01/19 04:57 Hemoglobin C Crystals Not Reportable 08/01/19 04:57 Schistocytes Not Reportable 08/01/19 04:57 Malaria parasites Not Reportable 08/01/19 04:57 Jeevan Bodies Not Reportable 08/01/19 04:57 Hem Pathologist Commnt No 08/01/19 04:57 PT 16.0 Sec. (12.2-14.9) H 07/03/19 22:20 INR 1.26 (0.87-1.13) H 07/03/19 22:20 D-Dimer 1142.18 ng/mlDDU (0-234) H 07/08/19 00:45 ABG pH 7.430 pH Units (7.350-7.450) 07/27/19 05:16 ABG pCO2 48.2 mm Hg 07/27/19 05:16 ABG pO2 63.4 mm Hg (80.0-90.0) L 07/27/19 05:16 ABG HCO3 31.3 mmol/L (20.0-26.0) H 07/27/19 05:16 ABG O2 Saturation 92.7 % (95.0-99.0) L 07/27/19 05:16 ABG O2 Content 9.8 (0.0-44) 07/27/19 05:16 ABG Base Excess 6.3 mmol/L (-2.0-3.0) H 07/27/19 05:16 ABG Hemoglobin 7.6 gm/dl (14.0-18.0) L 07/27/19 05:16 ABG Carboxyhemoglobin 1.6 % (0.0-5.0) 07/27/19 05:16 ABG Methemoglobin 0.4 % (0.0-1.5) 07/27/19 05:16 Oxyhemoglobin 90.9 % (95.0-99.0) L 07/27/19 05:16 FiO2 25 % 07/27/19 05:16 Sodium 132 mmol/L (137-145) L 08/01/19 04:57 Potassium 4.3 mmol/L (3.6-5.0) 08/01/19 04:57 Chloride 93.8 mmol/L (98-107) L 08/01/19 04:57 Carbon Dioxide 31 mmol/L (22-30) H 08/01/19 04:57 Anion Gap 12 mmol/L 08/01/19 04:57 BUN 12 mg/dL (9-20) 08/01/19 04:57 Creatinine 0.3 mg/dL (0.8-1.5) L 08/01/19 04:57 Estimated GFR > 60 ml/min 08/01/19 04:57 BUN/Creatinine Ratio 40 % 08/01/19 04:57 Glucose 95 mg/dL (75-100) 08/01/19 04:57 POC Glucose 99 (70-105) 08/02/19 12:18 Osmolality 268 Mosm/kg 07/05/19 04:00 Lactic Acid 3.30 mmol/L (0.7-2.0) H* 07/04/19 07:05 Uric Acid 7.2 mg/dL (3.5-7.6) 07/05/19 04:00 Calcium 8.1 mg/dL (8.4-10.2) L 08/01/19 04:57 Phosphorus 3.60 mg/dL (2.5-4.5) 07/05/19 04:00 Magnesium 1.80 mg/dL (1.7-2.3) 07/11/19 05:14 Iron 9 ug/dL (49-181) L 07/04/19 07:05 TIBC 97 mcg/dL (250-450) L 07/04/19 07:05 Ferritin 839.0 ng/mL (13.0-400.0) H 07/08/19 00:45 Total Bilirubin 0.20 mg/dL (0.1-1.2) 07/04/19 07:05 AST 73 units/L (5-40) H 07/04/19 07:05 ALT 91 units/L (7-56) H 07/04/19 07:05 Alkaline Phosphatase 114 units/L (35-129) 07/04/19 07:05 Ammonia 35.0 umol/L (25-60) 07/03/19 23:58 Lactate Dehydrogenase 277 units/L (91-180) H 07/10/19 04:00 Troponin T 0.013 ng/mL (0.00-0.029) 07/04/19 07:05 C-Reactive Protein 15.10 mg/dL (0.00-1.30) H 07/10/19 04:00 Total Protein 5.5 g/dL (6.3-8.2) L 07/04/19 07:05 Albumin 1.6 g/dL (3.9-5) L 07/31/19 04:42 Albumin/Globulin Ratio 0.6 % 07/04/19 07:05 Prealbumin 0.037 g/L (0.200-0.400) L 07/31/19 04:42 Triglycerides 33 mg/dL (2-149) 07/03/19 19:57 Cholesterol 47 mg/dL (50-199) L 07/03/19 19:57 LDL Cholesterol Direct 25 mg/dL (50-130) L 07/03/19 19:57 HDL Cholesterol 20 mg/dL (40-59) L 07/03/19 19:57 Cholesterol/HDL Ratio 2.35 % 07/03/19 19:57 Procalcitonin 24.82 ng/mL (<0.15) 07/30/19 12:59 TSH 2.170 mlU/mL (0.270-4.200) 07/03/19 22:20 Total Cortisol 28.0 mcg/dL () 07/05/19 10:11 Urine Color Yellow (Yellow) 07/29/19 11:57 Urine Turbidity Clear (Clear) 07/29/19 11:57 Urine pH 7.0 (5.0-7.0) 07/29/19 11:57 Ur Specific [place] 1.012 (1.003-1.030) 07/29/19 11:57 Urine Protein <15 mg/dl mg/dL (Negative) 07/29/19 11:57 Urine Glucose (UA) Neg mg/dL (Negative) 07/29/19 11:57 Urine Ketones Neg mg/dL (Negative) 07/29/19 11:57 Urine Blood Sm (Negative) 07/29/19 11:57 Urine Nitrite Neg (Negative) 07/29/19 11:57 Urine Bilirubin Neg (Negative) 07/29/19 11:57 Urine Urobilinogen 4.0 mg/dL (<2.0) 07/29/19 11:57 Ur Leukocyte Esterase Mod (Negative) 07/29/19 11:57 Urine WBC (Auto) 63.0 /HPF (0.0-6.0) H 07/29/19 11:57 Urine RBC (Auto) 14.0 /HPF (0.0-6.0) 07/29/19 11:57 U Epithel Cells (Auto) < 1.0 /HPF (0-13.0) 07/29/19 11:57 Urine Bacteria (Auto) 1+ /HPF (Negative) 07/29/19 11:57 Urine WBC Clumps Few /HPF 07/03/19 21:13 Urine Mucus Few /HPF 07/03/19 21:13 Urine Osmolality 293 Mosm/kg 07/05/19 08:15 Vancomycin Trough 23.2 ug/mL (5.0-20.0) H 07/05/19 17:54 Urine Opiates Screen Presumptive negative 07/03/19 21:13 Urine Methadone Screen Presumptive negative 07/03/19 21:13 Ur Barbiturates Screen Presumptive negative 07/03/19 21:13 Ur Phencyclidine Scrn Presumptive negative 07/03/19 21:13 Ur Amphetamines Screen Presumptive negative 07/03/19 21:13 U Benzodiazepines Scrn Presumptive negative 07/03/19 21:13 Urine Cocaine Screen Presumptive negative 07/03/19 21:13 U Marijuana (THC) Screen Presumptive negative 07/03/19 21:13 Drugs of Abuse Note Disclamer 07/03/19 21:13 Plasma/Serum Alcohol < 0.01 % (0-0.07) 07/03/19 23:58 Coronavirus (PCR) Positive (Negative) A 07/29/19 Unknown Blood Type B POSITIVE 07/12/19 08:49 Antibody Screen Negative 07/12/19 08:49 Crossmatch See Detail 07/12/19 08:49 Microbiology: Microbiology 07/30/19 Unknown Tracheal Aspirate Sputum Culture - Final Pseudomonas Aeruginosa 07/30/19 12:59 Peripheral/Venous Blood Culture - Preliminary NO GROWTH AFTER 72 HOURS 07/30/19 12:59 Peripheral/Venous Blood Culture - Preliminary NO GROWTH AFTER 72 HOURS Wright/IV: Voiding Method Indwelling Catheter IV Catheter Type [Left Forearm Peripheral IV ] IV Catheter Type [Left Upper Mid-line arm] IV Catheter Type [Right INT / Saline Lock Forearm] IV Catheter Type [Right Hand] INT / Saline Lock IV Catheter Type [Right CVL Femoral] IV Catheter Type [Left INT / Saline Lock External Jugular] Active Medications - Current Medications Current Medications: Generic Name Dose Route Start Last Admin Trade Name Freq PRN Reason Stop Dose Admin Acetaminophen 650 mg 07/04/19 04:24 Tylenol UT Q6H PRN Pain MILD(1-3)/Fever >100.5/MURO Acetaminophen 650 mg 07/10/19 04:00 08/03/19 09:25 Tylenol PO 650 mg Q6HR PRN Administration Pain, Mild (1-3) FEVER Lipase/Protease/Amylase 1 each 07/04/19 10:04 07/20/19 06:[address] 10,500 Unit FEEDTUBE 1 each PRN PRN Administration For Clogged Feeding Tube Aspirin 81 mg 07/05/19 10:00 08/03/19 09:25 Baby Aspirin PO 81 mg QDAY TAMMIE Administration Dextrose 50 ml 07/04/19 06:54 D50w (25gm) Syringe IV Q30MIN PRN Hypoglycemia Protocol Docusate Sodium 100 mg 07/10/19 10:00 08/03/19 09:24 Colace PO 100 mg BID TMAMIE Administration Enoxaparin Sodium 40 mg 07/24/19 10:00 08/03/19 09:25 Enoxaparin SUB-Q 40 mg QDAY@1000 TAMMIE Administration Famotidine 20 mg 07/23/19 22:00 08/03/19 09:25 Pepcid PO 20 mg BID TAMMIE Administration Fentanyl 50 mcg 07/21/19 15:18 Sublimaze IV Q10MIN PRN ANALGESIA Fentanyl 25 mcg 08/03/19 11:00 08/03/19 10:43 Duragesic TD 25 mcg Q3D TAMMIE Administration Folic Acid 1 mg 07/05/19 10:00 08/03/19 09:24 Folvite PO 1 mg QDAY TAMMIE Administration Hydrophilic Ointment 1 applic 07/03/19 19:56 07/05/19 17:42 Vaseline Lip Therapy TP 1 applic Q2HR PRN Administration Dry Lips Norepinephrine 4 mg in 250 mls @ 7.5 mls/hr 07/03/19 23:00 07/20/19 01:00 Levophed Drip 4 Mg/Ns 250 Ml IV Infused TITR TAMMIE Titration Protocol 2 MCG/MIN Fentanyl Citrate 2,000 mcg in 100 mls @ 4.75 mls/hr 07/21/19 16:00 08/03/19 11:57 Fentanyl Drip Premix IV 08/03/19 23:59 0 mcg/kg/hr TITR TAMMIE 0 mls/hr Titration Protocol 1 MCG/KG/HR Insulin Human Lispro 0 unit 07/07/19 12:00 08/03/19 12:36 Humalog SUB-Q Not Given Q6HR TAMMIE Protocol Levetiracetam 750 mg 07/06/19 11:00 08/03/19 09:24 Keppra FEEDTUBE 750 mg Q12HR TAMMIE Administration Metoprolol Tartrate 5 mg 07/12/19 15:08 07/29/19 07:30 Metoprolol IV 5 mg Q6HR PRN Administration Tachyarrhythmias Multi-Ingred Cream/Lotion/Oil/Oint 1 applic 07/03/19 19:56 07/05/19 13:19 Artificial Tears Ophth Oint OU 1 applic Q4HR PRN Administration Dry Eye(s) Naloxone HCl 0.1 mg 07/04/19 04:24 Naloxone IV Q2MIN PRN Res Rate </= 8 or 02 SAT < 92% Oxycodone/Acetaminophen 1 tab 07/19/19 14:17 Percocet 5/325 PO Q4H PRN Pain, Moderate (4-6) Scopolamine 1 each 07/10/19 11:00 08/03/19 10:41 Transderm-Scop TD 1 each Q3D TAMMIE Administration Simple Syrup 15 ml 07/04/19 10:04 07/10/19 21:56 Simple Syrup FEEDTUBE 15 ml PRN PRN Administration Hypoglycemia Simple Syrup 30 ml 07/04/19 10:04 Simple Syrup FEEDTUBE PRN PRN Hypoglycemia Sodium Bicarbonate 325 mg 07/04/19 10:04 07/20/19 10:20 Sodium Bicarbonate FEEDTUBE 325 mg PRN PRN Administration For Clogged Feeding Tube Sodium Chloride 10 ml 07/04/19 10:00 08/03/19 09:26 Sodium Chloride Flush Syringe 10 Ml IV 10 ml BID TAMMIE Administration Sodium Chloride 10 ml 07/04/19 04:24 Sodium Chloride Flush Syringe 10 Ml IV PRN PRN LINE FLUSH Sodium Hypochlorite 1 applic 07/10/19 14:00 08/02/19 21:46 Dakin's Half Strength TP 1 applicatio BID TAMMIE Administration Nutrition/Malnutrition Assess - Dietary Evaluation Nutrition/Malnutrition Findings: Nutrition Notes Start: 07/04/19 09: 17 Freq: Status: Active Protocol: Document 08/01/19 14:30 RAMANDEEP (Rec: 08/01/19 14:31 RAMANDEEP [email or web address]) Nutrition Notes Initial or Follow up Brief Note Current Diet TF - Nepro at 45ml/hr Labs/Tests K 4.3 Subjective/Other Information RD spoke with RN via phone at 12:35. Pt tolerating TF at goal rate. Nutrition Intervention Follow-Up By: 05/18/20 Additional Comments F/U: stable TF, vent status
[2019-08-03] MEDS: SODIUM HYPOCHLORITE, DAKIN'S 1/2 STRENGTH (0.25%) 473 ML TOPICAL SOLN TP SCH ×2 (16:26→23:17)
[2019-08-04] MEDS: INSULIN LISPRO 100 UNIT/ML SUB-Q SCH ×4 (00:25→19:03)
[2019-08-04 06:23] LABS: Hematocrit 23.2 % (35.5-45.6); Hemoglobin 7.5 gm/dl (11.8-15.2); Mean Corpuscular HGB Conc 32 % (32-34); Mean Corpuscular Volume 84 fl (84-94); Platelet Count 648 K/mm3 (140-440); Red Blood Count 2.77 M/mm3 (3.65-5.03); Red Cell Distribution Width 19.2 % (13.2-15.2)
[2019-08-04 06:48] LABS: BUN/Creatinine Ratio 45; Blood Urea Nitrogen 9 mg/dL (9-20); Calcium 8.1 mg/dL (8.4-10.2); Hemolysis Index 6
[2019-08-04 07:19] LABS: Anisocytosis 1+; Basophils % (Manual) 0.5 % (0.0-1.8); Monocytes % (Manual) 4.5 % (0.0-7.3); Platelet Estimate Consistent w Auto; Total Cells Counted 200
[2019-08-04] MEDS: DOCUSATE SODIUM 100 MG/10 ML ORAL LIQD PO SCH ×2 (09:07→21:30)
[2019-08-04] MEDS: FOLIC ACID 1 MG TAB PO SCH (09:07)
[2019-08-04] MEDS: levETIRAcetam 500 MG/5 ML ORAL LIQD FEEDTUBE SCH ×2 (09:07→21:29)
[2019-08-04] MEDS: ASPIRIN 81 MG TAB CHEW PO SCH (09:07)
[2019-08-04] MEDS: ENOXAPARIN 40 MG/0.4 ML INJ SUB-Q SCH (09:07)
[2019-08-04] MEDS: FAMOTIDINE 20 MG TAB PO SCH ×2 (09:07→21:30)
[2019-08-04] MEDS: SODIUM HYPOCHLORITE, DAKIN'S 1/2 STRENGTH (0.25%) 473 ML TOPICAL SOLN TP SCH ×2 (10:12→21:32)
--- NOTE | 2019-08-04 11:38 | Progress Note ---
Assessment and Plan Acute hypoxemic respiratory failure on MVS Severe sepsis with Shock. Bilateral Pneumonia. PUI coronavirus-19 infection. Acute possibly on chronic encephalopathy. Oropharyngeal dysphagia. Anemia. Decubitus ulcers Diabetes type 2. Hypertension. Leukocytosis. Anemia that is microcytic. Elevated serum transaminases. [id number] metabolic acidosis. Lactic acidosis. Severe protein-calorie malnutrition - no new issues, continue care as below - repeat COVID-19 testing next week / in 7 days - surgery evaluation ongoing for tracheostomy placement (await negative COVID test) - continue care as below otherwise - continue fentanyl gtt for pain control / sedation - continue to wean supplemental oxygen for target O2 sat's > 90% acutely - continue daily SAT's and SBT assessment as tolerated - VAP bundle addressed - continue lung protective strategies - continue bronchodilators with pulmonary hygiene per RT - wean per pulmonary driven protocols otherwise - prn Levophed for target MAP > 65 mmHg - continue airborne and contact COVID-19 precautions - COVID-19 test positive - complete anti-infectives and de-escalate per ID recommendations - continue wound care per WCT - sedation prn for target RASS 0 to -1 - accuchecks with glycemic control per SSI (While critically ill target blood glucose of 140-180 mg/dL; avoid hypoglycemia) - to avoid benzodiazepine's, reduce the possibility of delirium - prn analgesia per CPOT score - Maintenance of sleep-wake cycle, avoid delirium - continue enteral nutritional support at goal rate as tolerated - G.I. & VTE prophylaxis - PT/OT/ROM exercises - continue mobility protocols for pressure ulcer prophylaxis - Monitor hemodynamics closely - continue other care per attending / other consultants - discharge planning ongoing concurrently .... Re-evaluate in am & prn CONDITION: CRITICAL PROGNOSIS: GUARDED CODE STATUS: FULL CODE The high probability of a clinically significant, sudden or life-threatening deterioration of the [respiratory & cardiovascular] system(s) required my full and direct attention, intervention and personal management. The aggregate critical care time was [33] minutes without overlap. Time includes spent on; [x] Data Review and interpretation [x] Patient assessment and monitoring of vital signs [x] Documentation [x] Medication orders and management Subjective Date of service: 08/04/19 Principal diagnosis: Bilateral pneumonia, severe sepsis with septic shock, encephalopathy Interval history: Patient is seen today for: Ac hypoxemic Resp failure on MVS; Severe sepsis with Shock; Ivan. Pneumonia; PUI coronavirus-19 infection. Seen and examined at bedside; 24hour events reviewed; nursing and respiratory care staff consulted; no adverse overnight events reported to me; resting in bed; remains on MVS; AMS is persistent; still a tenuous wean Objective Vital Signs - 12hr 08/04/19 08/04/19 08/04/19 00:00 00:20 00:21 Temperature 99.4 F Pulse Rate 113 H 108 H Pulse Rate [ 107 H From Monitor] Respiratory 16 15 Rate Blood Pressure 131/69 O2 Sat by Pulse 97 98 Oximetry 08/04/19 08/04/19 08/04/19 00:33 01:00 02:00 Temperature Pulse Rate 111 H 105 H 107 H Pulse Rate [ From Monitor] Respiratory 15 14 Rate Blood Pressure 132/69 132/66 136/72 O2 Sat by Pulse 97 98 97 Oximetry 08/04/19 08/04/19 08/04/19 03:00 04:00 05:00 Temperature 98.7 F Pulse Rate 105 H 102 H 100 H Pulse Rate [ 107 H From Monitor] Respiratory 14 14 15 Rate Blood Pressure 141/76 144/77 139/74 O2 Sat by Pulse 98 98 98 Oximetry 08/04/19 08/04/19 08/04/19 05:05 06:00 07:00 Temperature Pulse Rate 103 H 105 H 98 H Pulse Rate [ From Monitor] Respiratory 14 14 Rate Blood Pressure 139/74 142/75 144/77 O2 Sat by Pulse 98 98 99 Oximetry 08/04/19 08/04/19 08/04/19 08:00 08:30 09:00 Temperature 98.9 F Pulse Rate 99 H 108 H 120 H Pulse Rate [ From Monitor] Respiratory 14 27 H 25 H Rate Blood Pressure 148/79 151/77 153/75 O2 Sat by Pulse 99 98 95 Oximetry 08/04/19 10:00 Temperature Pulse Rate 108 H Pulse Rate [ From Monitor] Respiratory 20 Rate Blood Pressure 133/68 O2 Sat by Pulse 99 Oximetry Constitutional: appears uncomfortable, other (eelderly and chronically ill looking AAM, normocep[krystina;ic with mildly increased respiratory effort at rest) Eyes: non-icteric ENT: oropharynx moist, other (ETT 24 cm Pawan) Neck: supple, no lymphadenopathy, no JVD Effort: very labored Ascultation: Bilateral: diminished breath sounds, rhonchi Percussion: Bilateral: not dull Cardiovascular: regular rate and rhythm Gastrointestinal: normoactive bowel sounds, soft, non-tender, non-distended, other (+ PEG tube with mild TF leakage) Integumentary: decubitus ulcer Extremities: no cyanosis, no edema, pink and warm, pulses normal Neurologic: unable to assess Psychiatric: other (Unable to assess re: AMS) CBC and BMP: 08/05/19 04:58 08/05/19 04:58 ABG, PT/INR, D-dimer: ABG ABG pH 7.430 pH Units (7.350-7.450) 07/27/19 05:16 ABG pCO2 48.2 mm Hg 07/27/19 05:16 ABG pO2 63.4 mm Hg (80.0-90.0) L 07/27/19 05:16 ABG O2 Saturation 92.7 % (95.0-99.0) L 07/27/19 05:16 PT/INR, D-dimer PT 16.0 Sec. (12.2-14.9) H 07/03/19 22:20 INR 1.26 (0.87-1.13) H 07/03/19 22:20 D-Dimer 1142.18 ng/mlDDU (0-234) H 07/08/19 00:45 Abnormal lab findings: Abnormal Labs 07/03/19 07/03/19 07/03/19 19:57 21:10 21:13 WBC RBC Hgb Hct MCV MCH MCHC RDW Plt Count Lymph % (Auto) [place] % (Auto) Lymph # [place] # Baso # Seg Neutrophils % Seg Neuts % (Manual) Lymphocytes % (Manual) Monocytes % (Manual) Nucleated RBC % Seg Neutrophils # Seg Neutrophils # Man Lymphocytes # (Manual) Monocytes # (Manual) PT INR D-Dimer ABG pH 7.238 L ABG pO2 210.8 H ABG HCO3 15.4 L ABG O2 Saturation 99.2 H ABG Base Excess -11.1 L ABG Hemoglobin 8.0 L Oxyhemoglobin Sodium 124 L Potassium Chloride 92.9 L Carbon Dioxide 10 L BUN 23 H Creatinine 0.5 L Glucose 118 H POC Glucose Lactic Acid Calcium 7.0 L Magnesium Iron TIBC Ferritin AST 70 H ALT 88 H Lactate Dehydrogenase Troponin T 0.032 H C-Reactive Protein Total Protein 5.0 L Albumin 1.8 L Prealbumin Cholesterol 47 L LDL Cholesterol Direct 25 L HDL Cholesterol 20 L Urine WBC (Auto) 12.0 H Vancomycin Trough Coronavirus (PCR) Crossmatch 07/03/19 07/03/19 07/03/19 22:20 22:20 22:20 WBC 30.5 H RBC 2.96 L Hgb 7.7 L Hct 23.9 L MCV 81 L MCH 26 L MCHC RDW 18.6 H Plt Count 459 H Lymph % (Auto) [place] % (Auto) Lymph # [place] # Baso # Seg Neutrophils % Seg Neuts % (Manual) 93.0 H Lymphocytes % (Manual) 0.5 L Monocytes % (Manual) Nucleated RBC % Seg Neutrophils # Seg Neutrophils # Man 28.4 H Lymphocytes # (Manual) 0.2 L Monocytes # (Manual) PT 16.0 H INR 1.26 H D-Dimer ABG pH ABG pO2 ABG HCO3 ABG O2 Saturation ABG Base Excess ABG Hemoglobin Oxyhemoglobin Sodium Potassium Chloride Carbon Dioxide BUN Creatinine Glucose POC Glucose Lactic Acid 6.90 H* Calcium Magnesium Iron TIBC Ferritin AST ALT Lactate Dehydrogenase Troponin T C-Reactive Protein Total Protein Albumin Prealbumin Cholesterol LDL Cholesterol Direct HDL Cholesterol Urine WBC (Auto) Vancomycin Trough Coronavirus (PCR) Crossmatch 07/03/19 07/04/19 07/04/19 23:58 05:15 07:05 WBC 17.1 H RBC 3.22 L Hgb 8.3 L Hct 25.4 L MCV 79 L MCH 26 L MCHC RDW 18.6 H Plt Count Lymph % (Auto) [place] % (Auto) Lymph # [place] # Baso # Seg Neutrophils % Seg Neuts % (Manual) 74.0 H Lymphocytes % (Manual) 0 L Monocytes % (Manual) Nucleated RBC % Seg Neutrophils # Seg Neutrophils # Man 12.7 H Lymphocytes # (Manual) 0.0 L Monocytes # (Manual) PT INR D-Dimer ABG pH 7.310 L ABG pO2 73.2 L ABG HCO3 17.8 L ABG O2 Saturation 93.8 L ABG Base Excess -7.7 L ABG Hemoglobin 9.6 L Oxyhemoglobin 92.3 L Sodium Potassium Chloride Carbon Dioxide BUN Creatinine Glucose POC Glucose Lactic Acid 7.10 H* Calcium Magnesium Iron TIBC Ferritin AST ALT Lactate Dehydrogenase Troponin T C-Reactive Protein Total Protein Albumin Prealbumin Cholesterol LDL Cholesterol Direct HDL Cholesterol Urine WBC (Auto) Vancomycin Trough Coronavirus (PCR) Crossmatch 07/04/19 07/04/19 07/04/19 07:05 07:05 07:05 WBC RBC Hgb Hct MCV MCH MCHC RDW Plt Count Lymph % (Auto) [place] % (Auto) Lymph # [place] # Baso # Seg Neutrophils % Seg Neuts % (Manual) Lymphocytes % (Manual) Monocytes % (Manual) Nucleated RBC % Seg Neutrophils # Seg Neutrophils # Man Lymphocytes # (Manual) Monocytes # (Manual) PT INR D-Dimer ABG pH ABG pO2 ABG HCO3 ABG O2 Saturation ABG Base Excess ABG Hemoglobin Oxyhemoglobin Sodium 120 L Potassium 5.1 H Chloride 90.0 L Carbon Dioxide 14 L BUN 26 H Creatinine 0.5 L Glucose POC Glucose Lactic Acid 3.30 H* Calcium 8.0 L Magnesium Iron 9 L TIBC 97 L Ferritin AST 73 H ALT 91 H Lactate Dehydrogenase Troponin T C-Reactive Protein Total Protein 5.5 L Albumin 2.0 L Prealbumin Cholesterol LDL Cholesterol Direct HDL Cholesterol Urine WBC (Auto) Vancomycin Trough Coronavirus (PCR) Crossmatch 07/04/19 07/04/19 07/04/19 09:39 09:39 09:39 WBC RBC Hgb Hct MCV MCH MCHC RDW Plt Count Lymph % (Auto) [place] % (Auto) Lymph # [place] # Baso # Seg Neutrophils % Seg Neuts % (Manual) Lymphocytes % (Manual) Monocytes % (Manual) Nucleated RBC % Seg Neutrophils # Seg Neutrophils # Man Lymphocytes # (Manual) Monocytes # (Manual) PT INR D-Dimer 1419.14 H ABG pH ABG pO2 ABG HCO3 ABG O2 Saturation ABG Base Excess ABG Hemoglobin Oxyhemoglobin Sodium Potassium Chloride Carbon Dioxide BUN Creatinine Glucose POC Glucose Lactic Acid Calcium Magnesium Iron TIBC Ferritin 1719.0 H AST ALT Lactate Dehydrogenase 234 H Troponin T C-Reactive Protein 15.50 H Total Protein Albumin Prealbumin Cholesterol LDL Cholesterol Direct HDL Cholesterol Urine WBC (Auto) Vancomycin Trough Coronavirus (PCR) Crossmatch 07/04/19 07/04/19 07/04/19 10:09 18:08 18:28 WBC RBC Hgb Hct MCV MCH MCHC RDW Plt Count Lymph % (Auto) [place] % (Auto) Lymph # [place] # Baso # Seg Neutrophils % Seg Neuts % (Manual) Lymphocytes % (Manual) Monocytes % (Manual) Nucleated RBC % Seg Neutrophils # Seg Neutrophils # Man Lymphocytes # (Manual) Monocytes # (Manual) PT INR D-Dimer ABG pH ABG pO2 ABG HCO3 ABG O2 Saturation ABG Base Excess ABG Hemoglobin Oxyhemoglobin Sodium 117 L* Potassium 5.6 H Chloride 90.3 L Carbon Dioxide 16 L BUN 28 H Creatinine 0.5 L Glucose 58 L POC Glucose 65 L Lactic Acid Calcium 8.2 L Magnesium Iron TIBC Ferritin AST ALT Lactate Dehydrogenase Troponin T C-Reactive Protein Total Protein Albumin Prealbumin Cholesterol LDL Cholesterol Direct HDL Cholesterol Urine WBC (Auto) Vancomycin Trough Coronavirus (PCR) Positive A Crossmatch 07/04/19 07/04/19 07/04/19 23:45 Unknown Unknown WBC RBC Hgb Hct MCV MCH MCHC RDW Plt Count Lymph % (Auto) [place] % (Auto) Lymph # [place] # Baso # Seg Neutrophils % Seg Neuts % (Manual) Lymphocytes % (Manual) Monocytes % (Manual) Nucleated RBC % Seg Neutrophils # Seg Neutrophils # Man Lymphocytes # (Manual) Monocytes # (Manual) PT INR D-Dimer 759.77 H ABG pH ABG pO2 ABG HCO3 ABG O2 Saturation ABG Base Excess ABG Hemoglobin Oxyhemoglobin Sodium 122 L Potassium Chloride 93.0 L Carbon Dioxide 19 L BUN 27 H Creatinine 0.5 L Glucose POC Glucose Lactic Acid Calcium 8.3 L Magnesium Iron TIBC Ferritin 1301.0 H AST ALT Lactate Dehydrogenase Troponin T C-Reactive Protein Total Protein Albumin Prealbumin Cholesterol LDL Cholesterol Direct HDL Cholesterol Urine WBC (Auto) Vancomycin Trough Coronavirus (PCR) Crossmatch 07/04/19 07/05/19 07/05/19 Unknown 03:20 04:00 WBC RBC Hgb Hct MCV MCH MCHC RDW Plt Count Lymph % (Auto) [place] % (Auto) Lymph # [place] # Baso # Seg Neutrophils % Seg Neuts % (Manual) Lymphocytes % (Manual) Monocytes % (Manual) Nucleated RBC % Seg Neutrophils # Seg Neutrophils # Man Lymphocytes # (Manual) Monocytes # (Manual) PT INR D-Dimer ABG pH ABG pO2 60.6 L ABG HCO3 ABG O2 Saturation 93.5 L ABG Base Excess -2.4 L ABG Hemoglobin 6.9 L Oxyhemoglobin 92.0 L Sodium 125 L Potassium Chloride 92.6 L Carbon Dioxide 19 L BUN 24 H Creatinine 0.6 L Glucose POC Glucose Lactic Acid Calcium 8.2 L Magnesium 1.40 L Iron TIBC Ferritin AST ALT Lactate Dehydrogenase 242 H Troponin T C-Reactive Protein 16.70 H Total Protein Albumin Prealbumin Cholesterol LDL Cholesterol Direct HDL Cholesterol Urine WBC (Auto) Vancomycin Trough Coronavirus (PCR) Crossmatch 07/05/19 07/05/19 07/05/19 10:11 16:15 17:54 WBC 46.4 H* RBC 2.77 L Hgb 7.2 L Hct 21.9 L MCV 79 L MCH 26 L MCHC RDW 19.0 H Plt Count Lymph % (Auto) [place] % (Auto) Lymph # [place] # Baso # Seg Neutrophils % Seg Neuts % (Manual) 82.0 H Lymphocytes % (Manual) 1.0 L Monocytes % (Manual) Nucleated RBC % Seg Neutrophils # Seg Neutrophils # Man 38.0 H Lymphocytes # (Manual) 0.5 L Monocytes # (Manual) PT INR D-Dimer ABG pH ABG pO2 ABG HCO3 ABG O2 Saturation ABG Base Excess ABG Hemoglobin Oxyhemoglobin Sodium Potassium Chloride Carbon Dioxide BUN Creatinine Glucose POC Glucose 69 L Lactic Acid Calcium Magnesium Iron TIBC Ferritin AST ALT Lactate Dehydrogenase Troponin T C-Reactive Protein Total Protein Albumin Prealbumin Cholesterol LDL Cholesterol Direct HDL Cholesterol Urine WBC (Auto) Vancomycin Trough 23.2 H Coronavirus (PCR) Crossmatch 07/05/19 07/06/19 07/06/19 19:58 00:27 00:27 WBC RBC Hgb Hct MCV MCH MCHC RDW Plt Count Lymph % (Auto) [place] % (Auto) Lymph # [place] # Baso # Seg Neutrophils % Seg Neuts % (Manual) Lymphocytes % (Manual) Monocytes % (Manual) Nucleated RBC % Seg Neutrophils # Seg Neutrophils # Man Lymphocytes # (Manual) Monocytes # (Manual) PT INR D-Dimer 1333.22 H ABG pH ABG pO2 ABG HCO3 ABG O2 Saturation ABG Base Excess ABG Hemoglobin Oxyhemoglobin Sodium 127 L Potassium Chloride Carbon Dioxide BUN Creatinine Glucose POC Glucose Lactic Acid Calcium Magnesium Iron TIBC Ferritin 977.1 H AST ALT Lactate Dehydrogenase Troponin T C-Reactive Protein Total Protein Albumin Prealbumin Cholesterol LDL Cholesterol Direct HDL Cholesterol Urine WBC (Auto) Vancomycin Trough Coronavirus (PCR) Crossmatch 07/06/19 07/06/19 07/06/19 00:27 02:00 02:56 WBC RBC Hgb Hct MCV MCH MCHC RDW Plt Count Lymph % (Auto) [place] % (Auto) Lymph # [place] # Baso # Seg Neutrophils % Seg Neuts % (Manual) Lymphocytes % (Manual) Monocytes % (Manual) Nucleated RBC % Seg Neutrophils # Seg Neutrophils # Man Lymphocytes # (Manual) Monocytes # (Manual) PT INR D-Dimer ABG pH ABG pO2 70.3 L ABG HCO3 ABG O2 Saturation 94.8 L ABG Base Excess ABG Hemoglobin 8.0 L Oxyhemoglobin 93.2 L Sodium Potassium Chloride Carbon Dioxide BUN Creatinine Glucose POC Glucose 117 H Lactic Acid Calcium Magnesium Iron TIBC Ferritin AST ALT Lactate Dehydrogenase 236 H Troponin T C-Reactive Protein 22.90 H Total Protein Albumin Prealbumin Cholesterol LDL Cholesterol Direct HDL Cholesterol Urine WBC (Auto) Vancomycin Trough Coronavirus (PCR) Crossmatch 07/06/19 07/06/19 07/06/19 03:49 03:49 07:40 WBC 38.8 H RBC 2.51 L Hgb 6.7 L Hct 19.9 L* MCV 79 L MCH 27 L MCHC RDW 19.2 H Plt Count Lymph % (Auto) [place] % (Auto) Lymph # [place] # Baso # Seg Neutrophils % Seg Neuts % (Manual) 90.5 H Lymphocytes % (Manual) 1.0 L Monocytes % (Manual) Nucleated RBC % Seg Neutrophils # Seg Neutrophils # Man 35.1 H Lymphocytes # (Manual) 0.4 L Monocytes # (Manual) PT INR D-Dimer ABG pH ABG pO2 ABG HCO3 ABG O2 Saturation ABG Base Excess ABG Hemoglobin Oxyhemoglobin Sodium 131 L Potassium Chloride 96.9 L Carbon Dioxide 18 L BUN 23 H Creatinine 0.5 L Glucose POC Glucose Lactic Acid Calcium 8.0 L Magnesium Iron TIBC Ferritin AST ALT Lactate Dehydrogenase Troponin T C-Reactive Protein Total Protein Albumin Prealbumin Cholesterol LDL Cholesterol Direct HDL Cholesterol Urine WBC (Auto) Vancomycin Trough Coronavirus (PCR) Crossmatch See Detail 07/06/19 07/06/19 07/06/19 12:38 14:39 20:00 WBC RBC Hgb Hct MCV MCH MCHC RDW Plt Count Lymph % (Auto) [place] % (Auto) Lymph # [place] # Baso # Seg Neutrophils % Seg Neuts % (Manual) Lymphocytes % (Manual) Monocytes % (Manual) Nucleated RBC % Seg Neutrophils # Seg Neutrophils # Man Lymphocytes # (Manual) Monocytes # (Manual) PT INR D-Dimer ABG pH ABG pO2 ABG HCO3 ABG O2 Saturation ABG Base Excess ABG Hemoglobin Oxyhemoglobin Sodium Potassium Chloride Carbon Dioxide BUN Creatinine Glucose POC Glucose 112 H 111 H 140 H Lactic Acid Calcium Magnesium Iron TIBC Ferritin AST ALT Lactate Dehydrogenase Troponin T C-Reactive Protein Total Protein Albumin Prealbumin Cholesterol LDL Cholesterol Direct HDL Cholesterol Urine WBC (Auto) Vancomycin Trough Coronavirus (PCR) Crossmatch 07/06/19 07/06/19 07/07/19 22:43 22:56 02:20 WBC RBC Hgb 7.9 L Hct 23.1 L MCV MCH MCHC RDW Plt Count Lymph % (Auto) [place] % (Auto) Lymph # [place] # Baso # Seg Neutrophils % Seg Neuts % (Manual) Lymphocytes % (Manual) Monocytes % (Manual) Nucleated RBC % Seg Neutrophils # Seg Neutrophils # Man Lymphocytes # (Manual) Monocytes # (Manual) PT INR D-Dimer ABG pH ABG pO2 ABG HCO3 ABG O2 Saturation ABG Base Excess ABG Hemoglobin Oxyhemoglobin Sodium Potassium Chloride Carbon Dioxide BUN Creatinine Glucose POC Glucose 122 H 149 H Lactic Acid Calcium Magnesium Iron TIBC Ferritin AST ALT Lactate Dehydrogenase Troponin T C-Reactive Protein Total Protein Albumin Prealbumin Cholesterol LDL Cholesterol Direct HDL Cholesterol Urine WBC (Auto) Vancomycin Trough Coronavirus (PCR) Crossmatch 07/07/19 07/07/19 07/07/19 04:35 05:27 05:34 WBC 23.1 H RBC 3.00 L Hgb 8.1 L Hct 24.2 L MCV 81 L MCH 27 L MCHC RDW 20.6 H Plt Count Lymph % (Auto) [place] % (Auto) Lymph # [place] # Baso # Seg Neutrophils % Seg Neuts % (Manual) 90.0 H Lymphocytes % (Manual) 2.0 L Monocytes % (Manual) Nucleated RBC % Seg Neutrophils # Seg Neutrophils # Man 20.8 H Lymphocytes # (Manual) 0.5 L Monocytes # (Manual) PT INR D-Dimer ABG pH ABG pO2 65.8 L ABG HCO3 ABG O2 Saturation 92.2 L ABG Base Excess ABG Hemoglobin 8.3 L Oxyhemoglobin 90.6 L Sodium Potassium Chloride Carbon Dioxide BUN Creatinine Glucose POC Glucose 132 H Lactic Acid Calcium Magnesium Iron TIBC Ferritin AST ALT Lactate Dehydrogenase Troponin T C-Reactive Protein Total Protein Albumin Prealbumin Cholesterol LDL Cholesterol Direct HDL Cholesterol Urine WBC (Auto) Vancomycin Trough Coronavirus (PCR) Crossmatch 07/07/19 07/07/19 07/07/19 05:34 11:50 15:58 WBC RBC Hgb 8.1 L Hct 24.2 L MCV MCH MCHC RDW Plt Count Lymph % (Auto) [place] % (Auto) Lymph # [place] # Baso # Seg Neutrophils % Seg Neuts % (Manual) Lymphocytes % (Manual) Monocytes % (Manual) Nucleated RBC % Seg Neutrophils # Seg Neutrophils # Man Lymphocytes # (Manual) Monocytes # (Manual) PT INR D-Dimer ABG pH ABG pO2 ABG HCO3 ABG O2 Saturation ABG Base Excess ABG Hemoglobin Oxyhemoglobin Sodium 135 L Potassium 3.3 L Chloride Carbon Dioxide 20 L BUN 27 H Creatinine 0.6 L Glucose 121 H POC Glucose 123 H Lactic Acid Calcium 8.0 L Magnesium Iron TIBC Ferritin AST ALT Lactate Dehydrogenase Troponin T C-Reactive Protein Total Protein Albumin Prealbumin Cholesterol LDL Cholesterol Direct HDL Cholesterol Urine WBC (Auto) Vancomycin Trough Coronavirus (PCR) Crossmatch 07/07/19 07/07/19 07/07/19 17:42 22:00 23:53 WBC RBC Hgb 8.0 L Hct 23.4 L MCV MCH MCHC RDW Plt Count Lymph % (Auto) [place] % (Auto) Lymph # [place] # Baso # Seg Neutrophils % Seg Neuts % (Manual) Lymphocytes % (Manual) Monocytes % (Manual) Nucleated RBC % Seg Neutrophils # Seg Neutrophils # Man Lymphocytes # (Manual) Monocytes # (Manual) PT INR D-Dimer ABG pH ABG pO2 ABG HCO3 ABG O2 Saturation ABG Base Excess ABG Hemoglobin Oxyhemoglobin Sodium Potassium Chloride Carbon Dioxide BUN Creatinine Glucose POC Glucose 107 H 117 H Lactic Acid Calcium Magnesium Iron TIBC Ferritin AST ALT Lactate Dehydrogenase Troponin T C-Reactive Protein Total Protein Albumin Prealbumin Cholesterol LDL Cholesterol Direct HDL Cholesterol Urine WBC (Auto) Vancomycin Trough Coronavirus (PCR) Crossmatch 07/08/19 07/08/19 07/08/19 00:45 00:45 00:45 WBC RBC Hgb Hct MCV MCH MCHC RDW Plt Count Lymph % (Auto) [place] % (Auto) Lymph # [place] # Baso # Seg Neutrophils % Seg Neuts % (Manual) Lymphocytes % (Manual) Monocytes % (Manual) Nucleated RBC % Seg Neutrophils # Seg Neutrophils # Man Lymphocytes # (Manual) Monocytes # (Manual) PT INR D-Dimer 1142.18 H ABG pH ABG pO2 ABG HCO3 ABG O2 Saturation ABG Base Excess ABG Hemoglobin Oxyhemoglobin Sodium Potassium Chloride Carbon Dioxide BUN Creatinine Glucose POC Glucose Lactic Acid Calcium Magnesium Iron TIBC Ferritin 839.0 H AST ALT Lactate Dehydrogenase 253 H Troponin T C-Reactive Protein 18.90 H Total Protein Albumin Prealbumin Cholesterol LDL Cholesterol Direct HDL Cholesterol Urine WBC (Auto) Vancomycin Trough Coronavirus (PCR) Crossmatch 07/08/19 07/08/19 07/08/19 04:30 05:11 12:02 WBC RBC Hgb Hct MCV MCH MCHC RDW Plt Count Lymph % (Auto) [place] % (Auto) Lymph # [place] # Baso # Seg Neutrophils % Seg Neuts % (Manual) Lymphocytes % (Manual) Monocytes % (Manual) Nucleated RBC % Seg Neutrophils # Seg Neutrophils # Man Lymphocytes # (Manual) Monocytes # (Manual) PT INR D-Dimer ABG pH ABG pO2 66.0 L ABG HCO3 ABG O2 Saturation 92.3 L ABG Base Excess ABG Hemoglobin 7.7 L Oxyhemoglobin 90.7 L Sodium Potassium Chloride Carbon Dioxide BUN Creatinine Glucose POC Glucose 108 H 153 H Lactic Acid Calcium Magnesium Iron TIBC Ferritin AST ALT Lactate Dehydrogenase Troponin T C-Reactive Protein Total Protein Albumin Prealbumin Cholesterol LDL Cholesterol Direct HDL Cholesterol Urine WBC (Auto) Vancomycin Trough Coronavirus (PCR) Crossmatch 07/08/19 07/08/19 07/08/19 16:15 18:22 23:35 WBC RBC Hgb Hct MCV MCH MCHC RDW Plt Count Lymph % (Auto) [place] % (Auto) Lymph # [place] # Baso # Seg Neutrophils % Seg Neuts % (Manual) Lymphocytes % (Manual) Monocytes % (Manual) Nucleated RBC % Seg Neutrophils # Seg Neutrophils # Man Lymphocytes # (Manual) Monocytes # (Manual) PT INR D-Dimer ABG pH ABG pO2 ABG HCO3 ABG O2 Saturation ABG Base Excess ABG Hemoglobin Oxyhemoglobin Sodium 134 L Potassium 3.3 L Chloride Carbon Dioxide 21 L BUN 27 H Creatinine 0.6 L Glucose 146 H POC Glucose 134 H 133 H Lactic Acid Calcium Magnesium Iron TIBC Ferritin AST ALT Lactate Dehydrogenase Troponin T C-Reactive Protein Total Protein Albumin Prealbumin Cholesterol LDL Cholesterol Direct HDL Cholesterol Urine WBC (Auto) Vancomycin Trough Coronavirus (PCR) Crossmatch 07/09/19 07/09/19 07/09/19 04:30 04:30 05:00 WBC 18.9 H RBC 2.77 L Hgb 7.4 L Hct 22.8 L MCV 82 L MCH 27 L MCHC RDW 20.9 H Plt Count 130 L Lymph % (Auto) [place] % (Auto) Lymph # [place] # Baso # Seg Neutrophils % Seg Neuts % (Manual) 84.0 H Lymphocytes % (Manual) 0 L Monocytes % (Manual) Nucleated RBC % Seg Neutrophils # Seg Neutrophils # Man 15.9 H Lymphocytes # (Manual) 0.0 L Monocytes # (Manual) PT INR D-Dimer ABG pH ABG pO2 ABG HCO3 ABG O2 Saturation ABG Base Excess ABG Hemoglobin Oxyhemoglobin Sodium Potassium 3.1 L Chloride Carbon Dioxide BUN 26 H Creatinine 0.5 L Glucose 125 H POC Glucose 155 H Lactic Acid Calcium Magnesium Iron TIBC Ferritin AST ALT Lactate Dehydrogenase Troponin T C-Reactive Protein Total Protein Albumin Prealbumin Cholesterol LDL Cholesterol Direct HDL Cholesterol Urine WBC (Auto) Vancomycin Trough Coronavirus (PCR) Crossmatch 07/09/19 07/09/19 07/09/19 05:55 12:22 17:50 WBC RBC Hgb Hct MCV MCH MCHC RDW Plt Count Lymph % (Auto) [place] % (Auto) Lymph # [place] # Baso # Seg Neutrophils % Seg Neuts % (Manual) Lymphocytes % (Manual) Monocytes % (Manual) Nucleated RBC % Seg Neutrophils # Seg Neutrophils # Man Lymphocytes # (Manual) Monocytes # (Manual) PT INR D-Dimer ABG pH ABG pO2 62.8 L ABG HCO3 ABG O2 Saturation ABG Base Excess ABG Hemoglobin 6.1 L Oxyhemoglobin 93.9 L Sodium Potassium Chloride Carbon Dioxide BUN Creatinine Glucose POC Glucose 115 H 133 H Lactic Acid Calcium Magnesium Iron TIBC Ferritin AST ALT Lactate Dehydrogenase Troponin T C-Reactive Protein Total Protein Albumin Prealbumin Cholesterol LDL Cholesterol Direct HDL Cholesterol Urine WBC (Auto) Vancomycin Trough Coronavirus (PCR) Crossmatch 07/10/19 07/10/19 07/10/19 00:38 04:00 04:00 WBC RBC Hgb Hct MCV MCH MCHC RDW Plt Count Lymph % (Auto) [place] % (Auto) Lymph # [place] # Baso # Seg Neutrophils % Seg Neuts % (Manual) Lymphocytes % (Manual) Monocytes % (Manual) Nucleated RBC % Seg Neutrophils # Seg Neutrophils # Man Lymphocytes # (Manual) Monocytes # (Manual) PT INR D-Dimer ABG pH ABG pO2 ABG HCO3 ABG O2 Saturation ABG Base Excess ABG Hemoglobin Oxyhemoglobin Sodium Potassium Chloride 107.9 H Carbon Dioxide BUN 26 H Creatinine 0.4 L Glucose 137 H POC Glucose 122 H Lactic Acid Calcium Magnesium 1.50 L Iron TIBC Ferritin AST ALT Lactate Dehydrogenase 277 H Troponin T C-Reactive Protein 15.10 H Total Protein Albumin Prealbumin Cholesterol LDL Cholesterol Direct HDL Cholesterol Urine WBC (Auto) Vancomycin Trough Coronavirus (PCR) Crossmatch 07/10/19 07/10/19 07/10/19 04:07 05:21 17:25 WBC RBC Hgb Hct MCV MCH MCHC RDW Plt Count Lymph % (Auto) [place] % (Auto) Lymph # [place] # Baso # Seg Neutrophils % Seg Neuts % (Manual) Lymphocytes % (Manual) Monocytes % (Manual) Nucleated RBC % Seg Neutrophils # Seg Neutrophils # Man Lymphocytes # (Manual) Monocytes # (Manual) PT INR D-Dimer ABG pH ABG pO2 65.6 L ABG HCO3 26.3 H ABG O2 Saturation ABG Base Excess ABG Hemoglobin 6.7 L Oxyhemoglobin Sodium Potassium Chloride Carbon Dioxide BUN Creatinine Glucose POC Glucose 144 H 113 H Lactic Acid Calcium Magnesium Iron TIBC Ferritin AST ALT Lactate Dehydrogenase Troponin T C-Reactive Protein Total Protein Albumin Prealbumin Cholesterol LDL Cholesterol Direct HDL Cholesterol Urine WBC (Auto) Vancomycin Trough Coronavirus (PCR) Crossmatch 07/11/19 07/11/19 07/11/19 00:07 05:14 05:25 WBC RBC Hgb Hct MCV MCH MCHC RDW Plt Count Lymph % (Auto) [place] % (Auto) Lymph # [place] # Baso # Seg Neutrophils % Seg Neuts % (Manual) Lymphocytes % (Manual) Monocytes % (Manual) Nucleated RBC % Seg Neutrophils # Seg Neutrophils # Man Lymphocytes # (Manual) Monocytes # (Manual) PT INR D-Dimer ABG pH ABG pO2 ABG HCO3 ABG O2 Saturation ABG Base Excess ABG Hemoglobin 5.8 L Oxyhemoglobin Sodium Potassium Chloride 108.0 H Carbon Dioxide BUN 26 H Creatinine 0.4 L Glucose 110 H POC Glucose 121 H Lactic Acid Calcium Magnesium Iron TIBC Ferritin AST ALT Lactate Dehydrogenase Troponin T C-Reactive Protein Total Protein Albumin Prealbumin Cholesterol LDL Cholesterol Direct HDL Cholesterol Urine WBC (Auto) Vancomycin Trough Coronavirus (PCR) Crossmatch 07/11/19 07/11/19 07/11/19 12:27 18:00 23:42 WBC RBC Hgb Hct MCV MCH MCHC RDW Plt Count Lymph % (Auto) [place] % (Auto) Lymph # [place] # Baso # Seg Neutrophils % Seg Neuts % (Manual) Lymphocytes % (Manual) Monocytes % (Manual) Nucleated RBC % Seg Neutrophils # Seg Neutrophils # Man Lymphocytes # (Manual) Monocytes # (Manual) PT INR D-Dimer ABG pH ABG pO2 ABG HCO3 ABG O2 Saturation ABG Base Excess ABG Hemoglobin Oxyhemoglobin Sodium Potassium Chloride Carbon Dioxide BUN Creatinine Glucose POC Glucose 158 H 141 H 142 H Lactic Acid Calcium Magnesium Iron TIBC Ferritin AST ALT Lactate Dehydrogenase Troponin T C-Reactive Protein Total Protein Albumin Prealbumin Cholesterol LDL Cholesterol Direct HDL Cholesterol Urine WBC (Auto) Vancomycin Trough Coronavirus (PCR) Crossmatch 07/12/19 07/12/19 07/12/19 04:46 04:46 05:23 WBC 23.6 H RBC 2.51 L Hgb 6.7 L Hct 20.8 L MCV 83 L MCH 27 L MCHC RDW 20.3 H Plt Count Lymph % (Auto) [place] % (Auto) Lymph # [place] # Baso # Seg Neutrophils % Seg Neuts % (Manual) 94.0 H Lymphocytes % (Manual) 4.0 L Monocytes % (Manual) Nucleated RBC % Seg Neutrophils # Seg Neutrophils # Man 22.2 H Lymphocytes # (Manual) 0.9 L Monocytes # (Manual) PT INR D-Dimer ABG pH ABG pO2 ABG HCO3 ABG O2 Saturation ABG Base Excess ABG Hemoglobin Oxyhemoglobin Sodium Potassium Chloride 107.1 H Carbon Dioxide BUN 25 H Creatinine 0.4 L Glucose 122 H POC Glucose 118 H Lactic Acid Calcium Magnesium Iron TIBC Ferritin AST ALT Lactate Dehydrogenase Troponin T C-Reactive Protein Total Protein Albumin Prealbumin Cholesterol LDL Cholesterol Direct HDL Cholesterol Urine WBC (Auto) Vancomycin Trough Coronavirus (PCR) Crossmatch 07/12/19 07/12/19 07/12/19 08:49 11:36 18:15 WBC RBC Hgb Hct MCV MCH MCHC RDW Plt Count Lymph % (Auto) [place] % (Auto) Lymph # [place] # Baso # Seg Neutrophils % Seg Neuts % (Manual) Lymphocytes % (Manual) Monocytes % (Manual) Nucleated RBC % Seg Neutrophils # Seg Neutrophils # Man Lymphocytes # (Manual) Monocytes # (Manual) PT INR D-Dimer ABG pH ABG pO2 ABG HCO3 ABG O2 Saturation ABG Base Excess ABG Hemoglobin Oxyhemoglobin Sodium Potassium Chloride Carbon Dioxide BUN Creatinine Glucose POC Glucose 124 H 110 H Lactic Acid Calcium Magnesium Iron TIBC Ferritin AST ALT Lactate Dehydrogenase Troponin T C-Reactive Protein Total Protein Albumin Prealbumin Cholesterol LDL Cholesterol Direct HDL Cholesterol Urine WBC (Auto) Vancomycin Trough Coronavirus (PCR) Crossmatch See Detail 07/12/19 07/13/19 07/13/19 23:16 05:26 06:50 WBC 23.9 H RBC 2.58 L Hgb 6.9 L Hct 21.5 L MCV 83 L MCH 27 L MCHC RDW 19.0 H Plt Count Lymph % (Auto) [place] % (Auto) Lymph # [place] # Baso # Seg Neutrophils % Seg Neuts % (Manual) 96.0 H Lymphocytes % (Manual) 3.0 L Monocytes % (Manual) Nucleated RBC % Seg Neutrophils # Seg Neutrophils # Man 22.9 H Lymphocytes # (Manual) 0.7 L Monocytes # (Manual) PT INR D-Dimer ABG pH ABG pO2 ABG HCO3 ABG O2 Saturation ABG Base Excess ABG Hemoglobin Oxyhemoglobin Sodium Potassium Chloride Carbon Dioxide BUN Creatinine Glucose POC Glucose 108 H 126 H Lactic Acid Calcium Magnesium Iron TIBC Ferritin AST ALT Lactate Dehydrogenase Troponin T C-Reactive Protein Total Protein Albumin Prealbumin Cholesterol LDL Cholesterol Direct HDL Cholesterol Urine WBC (Auto) Vancomycin Trough Coronavirus (PCR) Crossmatch 07/13/19 07/13/19 07/13/19 06:50 12:38 18:05 WBC RBC Hgb Hct MCV MCH MCHC RDW Plt Count Lymph % (Auto) [place] % (Auto) Lymph # [place] # Baso # Seg Neutrophils % Seg Neuts % (Manual) Lymphocytes % (Manual) Monocytes % (Manual) Nucleated RBC % Seg Neutrophils # Seg Neutrophils # Man Lymphocytes # (Manual) Monocytes # (Manual) PT INR D-Dimer ABG pH ABG pO2 ABG HCO3 ABG O2 Saturation ABG Base Excess ABG Hemoglobin Oxyhemoglobin Sodium Potassium Chloride Carbon Dioxide BUN 33 H Creatinine 0.5 L Glucose 136 H POC Glucose 164 H 145 H Lactic Acid Calcium Magnesium Iron TIBC Ferritin AST ALT Lactate Dehydrogenase Troponin T C-Reactive Protein Total Protein Albumin Prealbumin Cholesterol LDL Cholesterol Direct HDL Cholesterol Urine WBC (Auto) Vancomycin Trough Coronavirus (PCR) Crossmatch 07/13/19 07/14/19 07/14/19 18:30 00:21 04:40 WBC 22.9 H RBC 2.45 L Hgb 6.6 L Hct 21.1 L MCV MCH 27 L MCHC 31 L RDW 19.2 H Plt Count Lymph % (Auto) [place] % (Auto) Lymph # [place] # Baso # Seg Neutrophils % Seg Neuts % (Manual) 91.0 H Lymphocytes % (Manual) 7.0 L Monocytes % (Manual) Nucleated RBC % Seg Neutrophils # Seg Neutrophils # Man 20.8 H Lymphocytes # (Manual) Monocytes # (Manual) PT INR D-Dimer ABG pH ABG pO2 58.1 L ABG HCO3 ABG O2 Saturation 88.7 L ABG Base Excess ABG Hemoglobin 7.8 L Oxyhemoglobin 86.8 L Sodium Potassium Chloride Carbon Dioxide BUN Creatinine Glucose POC Glucose 118 H Lactic Acid Calcium Magnesium Iron TIBC Ferritin AST ALT Lactate Dehydrogenase Troponin T C-Reactive Protein Total Protein Albumin Prealbumin Cholesterol LDL Cholesterol Direct HDL Cholesterol Urine WBC (Auto) Vancomycin Trough Coronavirus (PCR) Crossmatch 07/14/19 07/14/19 07/14/19 04:40 05:38 05:45 WBC RBC Hgb Hct MCV MCH MCHC RDW Plt Count Lymph % (Auto) [place] % (Auto) Lymph # [place] # Baso # Seg Neutrophils % Seg Neuts % (Manual) Lymphocytes % (Manual) Monocytes % (Manual) Nucleated RBC % Seg Neutrophils # Seg Neutrophils # Man Lymphocytes # (Manual) Monocytes # (Manual) PT INR D-Dimer ABG pH 7.230 L ABG pO2 72.1 L ABG HCO3 ABG O2 Saturation 89.3 L ABG Base Excess -2.7 L ABG Hemoglobin 6.7 L Oxyhemoglobin 87.7 L Sodium Potassium Chloride 107.4 H Carbon Dioxide BUN 45 H Creatinine Glucose 101 H POC Glucose 154 H Lactic Acid Calcium Magnesium Iron TIBC Ferritin AST ALT Lactate Dehydrogenase Troponin T C-Reactive Protein Total Protein Albumin Prealbumin Cholesterol LDL Cholesterol Direct HDL Cholesterol Urine WBC (Auto) Vancomycin Trough Coronavirus (PCR) Crossmatch 07/14/19 07/14/19 07/14/19 12:25 18:20 19:01 WBC 22.4 H RBC 2.70 L Hgb 7.5 L Hct 23.3 L MCV MCH MCHC RDW 19.5 H Plt Count Lymph % (Auto) [place] % (Auto) Lymph # [place] # Baso # Seg Neutrophils % Seg Neuts % (Manual) Lymphocytes % (Manual) Monocytes % (Manual) Nucleated RBC % Seg Neutrophils # Seg Neutrophils # Man Lymphocytes # (Manual) Monocytes # (Manual) PT INR D-Dimer ABG pH ABG pO2 ABG HCO3 ABG O2 Saturation ABG Base Excess ABG Hemoglobin Oxyhemoglobin Sodium Potassium Chloride Carbon Dioxide BUN Creatinine Glucose POC Glucose 136 H 131 H Lactic Acid Calcium Magnesium Iron TIBC Ferritin AST ALT Lactate Dehydrogenase Troponin T C-Reactive Protein Total Protein Albumin Prealbumin Cholesterol LDL Cholesterol Direct HDL Cholesterol Urine WBC (Auto) Vancomycin Trough Coronavirus (PCR) Crossmatch 07/15/19 07/15/19 07/15/19 00:17 04:35 05:18 WBC 20.6 H RBC 2.41 L Hgb 6.8 L Hct 20.7 L MCV MCH MCHC RDW 20.2 H Plt Count Lymph % (Auto) [place] % (Auto) Lymph # [place] # Baso # Seg Neutrophils % Seg Neuts % (Manual) 92.0 H Lymphocytes % (Manual) 5.0 L Monocytes % (Manual) Nucleated RBC % Seg Neutrophils # Seg Neutrophils # Man 19.0 H Lymphocytes # (Manual) 1.0 L Monocytes # (Manual) PT INR D-Dimer ABG pH 7.342 L ABG pO2 ABG HCO3 ABG O2 Saturation ABG Base Excess -3.1 L ABG Hemoglobin 7.2 L Oxyhemoglobin 94.9 L Sodium Potassium Chloride Carbon Dioxide BUN Creatinine Glucose POC Glucose 116 H Lactic Acid Calcium Magnesium Iron TIBC Ferritin AST ALT Lactate Dehydrogenase Troponin T C-Reactive Protein Total Protein Albumin Prealbumin Cholesterol LDL Cholesterol Direct HDL Cholesterol Urine WBC (Auto) Vancomycin Trough Coronavirus (PCR) Crossmatch 07/15/19 07/15/19 07/15/19 05:18 05:57 11:28 WBC RBC Hgb Hct MCV MCH MCHC RDW Plt Count Lymph % (Auto) [place] % (Auto) Lymph # [place] # Baso # Seg Neutrophils % Seg Neuts % (Manual) Lymphocytes % (Manual) Monocytes % (Manual) Nucleated RBC % Seg Neutrophils # Seg Neutrophils # Man Lymphocytes # (Manual) Monocytes # (Manual) PT INR D-Dimer ABG pH ABG pO2 ABG HCO3 ABG O2 Saturation ABG Base Excess ABG Hemoglobin Oxyhemoglobin Sodium Potassium Chloride Carbon Dioxide 20 L BUN 59 H Creatinine Glucose 140 H POC Glucose 139 H 117 H Lactic Acid Calcium Magnesium Iron TIBC Ferritin AST ALT Lactate Dehydrogenase Troponin T C-Reactive Protein Total Protein Albumin Prealbumin Cholesterol LDL Cholesterol Direct HDL Cholesterol Urine WBC (Auto) Vancomycin Trough Coronavirus (PCR) Crossmatch 07/15/19 07/16/19 07/16/19 18:13 00:06 03:43 WBC RBC Hgb Hct MCV MCH MCHC RDW Plt Count Lymph % (Auto) [place] % (Auto) Lymph # [place] # Baso # Seg Neutrophils % Seg Neuts % (Manual) Lymphocytes % (Manual) Monocytes % (Manual) Nucleated RBC % Seg Neutrophils # Seg Neutrophils # Man Lymphocytes # (Manual) Monocytes # (Manual) PT INR D-Dimer ABG pH 7.344 L ABG pO2 68.6 L ABG HCO3 ABG O2 Saturation ABG Base Excess -3.5 L ABG Hemoglobin 6.1 L Oxyhemoglobin 93.3 L Sodium Potassium Chloride Carbon Dioxide BUN Creatinine Glucose POC Glucose 114 H 119 H Lactic Acid Calcium Magnesium Iron TIBC Ferritin AST ALT Lactate Dehydrogenase Troponin T C-Reactive Protein Total Protein Albumin Prealbumin Cholesterol LDL Cholesterol Direct HDL Cholesterol Urine WBC (Auto) Vancomycin Trough Coronavirus (PCR) Crossmatch 07/16/19 07/16/19 07/16/19 04:41 04:41 12:09 WBC 19.6 H RBC 2.81 L Hgb 7.7 L Hct 24.0 L MCV MCH 27 L MCHC RDW 19.4 H Plt Count 514 H Lymph % (Auto) 6.7 L [place] % (Auto) Lymph # [place] # 1.0 H Baso # Seg Neutrophils % 87.0 H Seg Neuts % (Manual) Lymphocytes % (Manual) Monocytes % (Manual) Nucleated RBC % Seg Neutrophils # 17.0 H Seg Neutrophils # Man Lymphocytes # (Manual) Monocytes # (Manual) PT INR D-Dimer ABG pH ABG pO2 ABG HCO3 ABG O2 Saturation ABG Base Excess ABG Hemoglobin Oxyhemoglobin Sodium Potassium 5.9 H Chloride Carbon Dioxide 21 L BUN 73 H Creatinine 2.0 H Glucose POC Glucose 141 H Lactic Acid Calcium Magnesium Iron TIBC Ferritin AST ALT Lactate Dehydrogenase Troponin T C-Reactive Protein Total Protein Albumin Prealbumin Cholesterol LDL Cholesterol Direct HDL Cholesterol Urine WBC (Auto) Vancomycin Trough Coronavirus (PCR) Crossmatch 07/16/19 07/16/19 07/17/19 16:19 17:45 00:16 WBC RBC Hgb Hct MCV MCH MCHC RDW Plt Count Lymph % (Auto) [place] % (Auto) Lymph # [place] # Baso # Seg Neutrophils % Seg Neuts % (Manual) Lymphocytes % (Manual) Monocytes % (Manual) Nucleated RBC % Seg Neutrophils # Seg Neutrophils # Man Lymphocytes # (Manual) Monocytes # (Manual) PT INR D-Dimer ABG pH ABG pO2 ABG HCO3 ABG O2 Saturation ABG Base Excess ABG Hemoglobin Oxyhemoglobin Sodium Potassium 5.1 H Chloride Carbon Dioxide 20 L BUN 72 H Creatinine 1.7 H Glucose 128 H POC Glucose 181 H 164 H Lactic Acid Calcium Magnesium Iron TIBC Ferritin AST ALT Lactate Dehydrogenase Troponin T C-Reactive Protein Total Protein Albumin Prealbumin Cholesterol LDL Cholesterol Direct HDL Cholesterol Urine WBC (Auto) Vancomycin Trough Coronavirus (PCR) Crossmatch 07/17/19 07/17/19 07/17/19 04:20 04:39 04:39 WBC 16.1 H RBC 2.92 L Hgb 8.0 L Hct 25.5 L MCV MCH MCHC 31 L RDW 19.7 H Plt Count 564 H Lymph % (Auto) 3.6 L [place] % (Auto) 7.4 H Lymph # 0.6 L [place] # 1.2 H Baso # Seg Neutrophils % 87.5 H Seg Neuts % (Manual) Lymphocytes % (Manual) Monocytes % (Manual) Nucleated RBC % Seg Neutrophils # 14.1 H Seg Neutrophils # Man Lymphocytes # (Manual) Monocytes # (Manual) PT INR D-Dimer ABG pH 7.231 L ABG pO2 95.3 H ABG HCO3 ABG O2 Saturation ABG Base Excess -5.0 L ABG Hemoglobin 7.9 L Oxyhemoglobin 94.8 L Sodium Potassium Chloride 107.8 H Carbon Dioxide 21 L BUN 68 H Creatinine Glucose POC Glucose Lactic Acid Calcium Magnesium Iron TIBC Ferritin AST ALT Lactate Dehydrogenase Troponin T C-Reactive Protein Total Protein Albumin Prealbumin Cholesterol LDL Cholesterol Direct HDL Cholesterol Urine WBC (Auto) Vancomycin Trough Coronavirus (PCR) Crossmatch 07/17/19 07/17/19 07/17/19 05:28 12:11 18:48 WBC RBC Hgb Hct MCV MCH MCHC RDW Plt Count Lymph % (Auto) [place] % (Auto) Lymph # [place] # Baso # Seg Neutrophils % Seg Neuts % (Manual) Lymphocytes % (Manual) Monocytes % (Manual) Nucleated RBC % Seg Neutrophils # Seg Neutrophils # Man Lymphocytes # (Manual) Monocytes # (Manual) PT INR D-Dimer ABG pH ABG pO2 ABG HCO3 ABG O2 Saturation ABG Base Excess ABG Hemoglobin Oxyhemoglobin Sodium Potassium Chloride Carbon Dioxide BUN Creatinine Glucose POC Glucose 121 H 125 H 174 H Lactic Acid Calcium Magnesium Iron TIBC Ferritin AST ALT Lactate Dehydrogenase Troponin T C-Reactive Protein Total Protein Albumin Prealbumin Cholesterol LDL Cholesterol Direct HDL Cholesterol Urine WBC (Auto) Vancomycin Trough Coronavirus (PCR) Crossmatch 07/17/19 07/17/19 07/18/19 19:55 23:57 02:30 WBC RBC Hgb Hct MCV MCH MCHC RDW Plt Count Lymph % (Auto) [place] % (Auto) Lymph # [place] # Baso # Seg Neutrophils % Seg Neuts % (Manual) Lymphocytes % (Manual) Monocytes % (Manual) Nucleated RBC % Seg Neutrophils # Seg Neutrophils # Man Lymphocytes # (Manual) Monocytes # (Manual) PT INR D-Dimer ABG pH 7.344 L 7.294 L ABG pO2 78.5 L 119.2 H ABG HCO3 ABG O2 Saturation ABG Base Excess -3.3 L -2.6 L ABG Hemoglobin 8.6 L 8.1 L Oxyhemoglobin 94.8 L Sodium Potassium Chloride Carbon Dioxide BUN Creatinine Glucose POC Glucose 148 H Lactic Acid Calcium Magnesium Iron TIBC Ferritin AST ALT Lactate Dehydrogenase Troponin T C-Reactive Protein Total Protein Albumin Prealbumin Cholesterol LDL Cholesterol Direct HDL Cholesterol Urine WBC (Auto) Vancomycin Trough Coronavirus (PCR) Crossmatch 07/18/19 07/18/19 07/18/19 04:49 05:22 05:22 WBC 15.9 H RBC 3.00 L Hgb 8.1 L Hct 26.0 L MCV MCH 27 L MCHC 31 L RDW 19.4 H Plt Count 733 H Lymph % (Auto) 6.3 L [place] % (Auto) 7.4 H Lymph # 1.0 L [place] # 1.2 H Baso # 0.2 H Seg Neutrophils % 83.8 H Seg Neuts % (Manual) Lymphocytes % (Manual) Monocytes % (Manual) Nucleated RBC % Seg Neutrophils # 13.3 H Seg Neutrophils # Man Lymphocytes # (Manual) Monocytes # (Manual) PT INR D-Dimer ABG pH ABG pO2 ABG HCO3 ABG O2 Saturation ABG Base Excess ABG Hemoglobin Oxyhemoglobin Sodium Potassium Chloride 110.6 H Carbon Dioxide BUN 61 H Creatinine Glucose 109 H POC Glucose 116 H Lactic Acid Calcium Magnesium Iron TIBC Ferritin AST ALT Lactate Dehydrogenase Troponin T C-Reactive Protein Total Protein Albumin Prealbumin Cholesterol LDL Cholesterol Direct HDL Cholesterol Urine WBC (Auto) Vancomycin Trough Coronavirus (PCR) Crossmatch 07/18/19 07/18/19 07/18/19 12:23 18:06 22:20 WBC RBC Hgb Hct MCV MCH MCHC RDW Plt Count Lymph % (Auto) [place] % (Auto) Lymph # [place] # Baso # Seg Neutrophils % Seg Neuts % (Manual) Lymphocytes % (Manual) Monocytes % (Manual) Nucleated RBC % Seg Neutrophils # Seg Neutrophils # Man Lymphocytes # (Manual) Monocytes # (Manual) PT INR D-Dimer ABG pH 7.338 L ABG pO2 135.1 H ABG HCO3 ABG O2 Saturation ABG Base Excess ABG Hemoglobin 9.2 L Oxyhemoglobin Sodium Potassium Chloride Carbon Dioxide BUN Creatinine Glucose POC Glucose 114 H 113 H Lactic Acid Calcium Magnesium Iron TIBC Ferritin AST ALT Lactate Dehydrogenase Troponin T C-Reactive Protein Total Protein Albumin Prealbumin Cholesterol LDL Cholesterol Direct HDL Cholesterol Urine WBC (Auto) Vancomycin Trough Coronavirus (PCR) Crossmatch 07/18/19 07/19/19 07/19/19 23:33 03:45 05:18 WBC RBC Hgb Hct MCV MCH MCHC RDW Plt Count Lymph % (Auto) [place] % (Auto) Lymph # [place] # Baso # Seg Neutrophils % Seg Neuts % (Manual) Lymphocytes % (Manual) Monocytes % (Manual) Nucleated RBC % Seg Neutrophils # Seg Neutrophils # Man Lymphocytes # (Manual) Monocytes # (Manual) PT INR D-Dimer ABG pH 7.342 L ABG pO2 95.0 H ABG HCO3 ABG O2 Saturation ABG Base Excess ABG Hemoglobin 8.5 L Oxyhemoglobin Sodium Potassium Chloride Carbon Dioxide BUN Creatinine Glucose POC Glucose 125 H 111 H Lactic Acid Calcium Magnesium Iron TIBC Ferritin AST ALT Lactate Dehydrogenase Troponin T C-Reactive Protein Total Protein Albumin Prealbumin Cholesterol LDL Cholesterol Direct HDL Cholesterol Urine WBC (Auto) Vancomycin Trough Coronavirus (PCR) Crossmatch 07/19/19 07/19/19 07/19/19 08:45 08:45 11:47 WBC 15.9 H RBC 3.31 L Hgb 9.1 L Hct 28.4 L MCV MCH 27 L MCHC RDW 19.1 H Plt Count 858 H Lymph % (Auto) 4.9 L [place] % (Auto) 8.1 H Lymph # 0.8 L [place] # 1.3 H Baso # Seg Neutrophils % 85.5 H Seg Neuts % (Manual) Lymphocytes % (Manual) Monocytes % (Manual) Nucleated RBC % Seg Neutrophils # 13.6 H Seg Neutrophils # Man Lymphocytes # (Manual) Monocytes # (Manual) PT INR D-Dimer ABG pH ABG pO2 ABG HCO3 ABG O2 Saturation ABG Base Excess ABG Hemoglobin Oxyhemoglobin Sodium Potassium Chloride 111.6 H Carbon Dioxide BUN 50 H Creatinine 0.7 L Glucose 118 H POC Glucose 114 H Lactic Acid Calcium Magnesium Iron TIBC Ferritin AST ALT Lactate Dehydrogenase Troponin T C-Reactive Protein Total Protein Albumin Prealbumin Cholesterol LDL Cholesterol Direct HDL Cholesterol Urine WBC (Auto) Vancomycin Trough Coronavirus (PCR) Crossmatch 07/19/19 07/19/19 07/20/19 18:25 23:44 04:39 WBC RBC Hgb Hct MCV MCH MCHC RDW Plt Count Lymph % (Auto) [place] % (Auto) Lymph # [place] # Baso # Seg Neutrophils % Seg Neuts % (Manual) Lymphocytes % (Manual) Monocytes % (Manual) Nucleated RBC % Seg Neutrophils # Seg Neutrophils # Man Lymphocytes # (Manual) Monocytes # (Manual) PT INR D-Dimer ABG pH ABG pO2 ABG HCO3 ABG O2 Saturation ABG Base Excess ABG Hemoglobin Oxyhemoglobin Sodium Potassium Chloride 110.3 H Carbon Dioxide BUN 44 H Creatinine 0.6 L Glucose 120 H POC Glucose 115 H 117 H Lactic Acid Calcium Magnesium Iron TIBC Ferritin AST ALT Lactate Dehydrogenase Troponin T C-Reactive Protein Total Protein Albumin Prealbumin Cholesterol LDL Cholesterol Direct HDL Cholesterol Urine WBC (Auto) Vancomycin Trough Coronavirus (PCR) Crossmatch 07/20/19 07/21/19 07/21/19 05:30 11:59 17:40 WBC RBC Hgb Hct MCV MCH MCHC RDW Plt Count Lymph % (Auto) [place] % (Auto) Lymph # [place] # Baso # Seg Neutrophils % Seg Neuts % (Manual) Lymphocytes % (Manual) Monocytes % (Manual) Nucleated RBC % Seg Neutrophils # Seg Neutrophils # Man Lymphocytes # (Manual) Monocytes # (Manual) PT INR D-Dimer ABG pH ABG pO2 ABG HCO3 ABG O2 Saturation ABG Base Excess ABG Hemoglobin Oxyhemoglobin Sodium Potassium Chloride Carbon Dioxide BUN Creatinine Glucose POC Glucose 131 H 122 H 125 H Lactic Acid Calcium Magnesium Iron TIBC Ferritin AST ALT Lactate Dehydrogenase Troponin T C-Reactive Protein Total Protein Albumin Prealbumin Cholesterol LDL Cholesterol Direct HDL Cholesterol Urine WBC (Auto) Vancomycin Trough Coronavirus (PCR) Crossmatch 07/22/19 07/22/19 07/22/19 05:38 05:38 12:29 WBC 12.6 H RBC 3.19 L Hgb 8.9 L Hct 27.5 L MCV MCH MCHC RDW 18.9 H Plt Count 1101 H* Lymph % (Auto) [place] % (Auto) 12.2 H Lymph # [place] # 1.5 H Baso # Seg Neutrophils % 72.8 H Seg Neuts % (Manual) 76.0 H Lymphocytes % (Manual) 7.0 L Monocytes % (Manual) 14.0 H Nucleated RBC % 1.0 H Seg Neutrophils # 9.2 H Seg Neutrophils # Man 9.6 H Lymphocytes # (Manual) 0.9 L Monocytes # (Manual) 1.8 H PT INR D-Dimer ABG pH ABG pO2 ABG HCO3 ABG O2 Saturation ABG Base Excess ABG Hemoglobin Oxyhemoglobin Sodium Potassium 3.4 L Chloride Carbon Dioxide BUN 29 H Creatinine 0.5 L Glucose POC Glucose 116 H Lactic Acid Calcium Magnesium Iron TIBC Ferritin AST ALT Lactate Dehydrogenase Troponin T C-Reactive Protein Total Protein Albumin Prealbumin Cholesterol LDL Cholesterol Direct HDL Cholesterol Urine WBC (Auto) Vancomycin Trough Coronavirus (PCR) Crossmatch 07/22/19 07/22/19 07/23/19 18:20 23:51 04:52 WBC RBC Hgb Hct MCV MCH MCHC RDW Plt Count Lymph % (Auto) [place] % (Auto) Lymph # [place] # Baso # Seg Neutrophils % Seg Neuts % (Manual) Lymphocytes % (Manual) Monocytes % (Manual) Nucleated RBC % Seg Neutrophils # Seg Neutrophils # Man Lymphocytes # (Manual) Monocytes # (Manual) PT INR D-Dimer ABG pH ABG pO2 ABG HCO3 ABG O2 Saturation ABG Base Excess ABG Hemoglobin Oxyhemoglobin Sodium Potassium Chloride Carbon Dioxide BUN 24 H Creatinine 0.4 L Glucose POC Glucose 107 H 110 H Lactic Acid Calcium Magnesium Iron TIBC Ferritin AST ALT Lactate Dehydrogenase Troponin T C-Reactive Protein Total Protein Albumin Prealbumin Cholesterol LDL Cholesterol Direct HDL Cholesterol Urine WBC (Auto) Vancomycin Trough Coronavirus (PCR) Crossmatch 07/23/19 07/23/19 07/24/19 06:00 23:15 04:40 WBC RBC Hgb Hct MCV MCH MCHC RDW Plt Count Lymph % (Auto) [place] % (Auto) Lymph # [place] # Baso # Seg Neutrophils % Seg Neuts % (Manual) Lymphocytes % (Manual) Monocytes % (Manual) Nucleated RBC % Seg Neutrophils # Seg Neutrophils # Man Lymphocytes # (Manual) Monocytes # (Manual) PT INR D-Dimer ABG pH ABG pO2 73.5 L ABG HCO3 27.0 H 28.5 H ABG O2 Saturation 94.5 L ABG Base Excess ABG Hemoglobin 9.4 L 8.9 L Oxyhemoglobin 94.0 L 92.7 L Sodium Potassium Chloride Carbon Dioxide BUN Creatinine Glucose POC Glucose 117 H Lactic Acid Calcium Magnesium Iron TIBC Ferritin AST ALT Lactate Dehydrogenase Troponin T C-Reactive Protein Total Protein Albumin Prealbumin Cholesterol LDL Cholesterol Direct HDL Cholesterol Urine WBC (Auto) Vancomycin Trough Coronavirus (PCR) Crossmatch 07/24/19 07/24/19 07/25/19 05:25 12:06 00:16 WBC RBC Hgb Hct MCV MCH MCHC RDW Plt Count Lymph % (Auto) [place] % (Auto) Lymph # [place] # Baso # Seg Neutrophils % Seg Neuts % (Manual) Lymphocytes % (Manual) Monocytes % (Manual) Nucleated RBC % Seg Neutrophils # Seg Neutrophils # Man Lymphocytes # (Manual) Monocytes # (Manual) PT INR D-Dimer ABG pH ABG pO2 ABG HCO3 ABG O2 Saturation ABG Base Excess ABG Hemoglobin Oxyhemoglobin Sodium Potassium Chloride Carbon Dioxide BUN Creatinine Glucose POC Glucose 114 H 108 H 106 H Lactic Acid Calcium Magnesium Iron TIBC Ferritin AST ALT Lactate Dehydrogenase Troponin T C-Reactive Protein Total Protein Albumin Prealbumin Cholesterol LDL Cholesterol Direct HDL Cholesterol Urine WBC (Auto) Vancomycin Trough Coronavirus (PCR) Crossmatch 07/25/19 07/25/19 07/25/19 05:14 05:14 05:17 WBC 17.8 H RBC 3.32 L Hgb 9.2 L Hct 28.6 L MCV MCH MCHC RDW 19.9 H Plt Count 994 H Lymph % (Auto) [place] % (Auto) Lymph # [place] # Baso # Seg Neutrophils % Seg Neuts % (Manual) 82.0 H Lymphocytes % (Manual) 5.0 L Monocytes % (Manual) Nucleated RBC % Seg Neutrophils # Seg Neutrophils # Man 14.6 H Lymphocytes # (Manual) 0.9 L Monocytes # (Manual) 1.2 H PT INR D-Dimer ABG pH ABG pO2 ABG HCO3 ABG O2 Saturation ABG Base Excess ABG Hemoglobin Oxyhemoglobin Sodium Potassium Chloride Carbon Dioxide BUN Creatinine 0.4 L Glucose 110 H POC Glucose 107 H Lactic Acid Calcium Magnesium Iron TIBC Ferritin AST ALT Lactate Dehydrogenase Troponin T C-Reactive Protein Total Protein Albumin Prealbumin Cholesterol LDL Cholesterol Direct HDL Cholesterol Urine WBC (Auto) Vancomycin Trough Coronavirus (PCR) Crossmatch 07/25/19 07/25/19 07/26/19 11:55 23:49 06:01 WBC RBC Hgb Hct MCV MCH MCHC RDW Plt Count Lymph % (Auto) [place] % (Auto) Lymph # [place] # Baso # Seg Neutrophils % Seg Neuts % (Manual) Lymphocytes % (Manual) Monocytes % (Manual) Nucleated RBC % Seg Neutrophils # Seg Neutrophils # Man Lymphocytes # (Manual) Monocytes # (Manual) PT INR D-Dimer ABG pH ABG pO2 ABG HCO3 ABG O2 Saturation ABG Base Excess ABG Hemoglobin Oxyhemoglobin Sodium Potassium Chloride Carbon Dioxide BUN Creatinine Glucose POC Glucose 123 H 118 H 106 H Lactic Acid Calcium Magnesium Iron TIBC Ferritin AST ALT Lactate Dehydrogenase Troponin T C-Reactive Protein Total Protein Albumin Prealbumin Cholesterol LDL Cholesterol Direct HDL Cholesterol Urine WBC (Auto) Vancomycin Trough Coronavirus (PCR) Crossmatch 07/26/19 07/27/19 07/27/19 17:02 00:28 05:16 WBC RBC Hgb Hct MCV MCH MCHC RDW Plt Count Lymph % (Auto) [place] % (Auto) Lymph # [place] # Baso # Seg Neutrophils % Seg Neuts % (Manual) Lymphocytes % (Manual) Monocytes % (Manual) Nucleated RBC % Seg Neutrophils # Seg Neutrophils # Man Lymphocytes # (Manual) Monocytes # (Manual) PT INR D-Dimer ABG pH ABG pO2 63.4 L ABG HCO3 31.3 H ABG O2 Saturation 92.7 L ABG Base Excess 6.3 H ABG Hemoglobin 7.6 L Oxyhemoglobin 90.9 L Sodium Potassium Chloride Carbon Dioxide BUN Creatinine Glucose POC Glucose 116 H 158 H Lactic Acid Calcium Magnesium Iron TIBC Ferritin AST ALT Lactate Dehydrogenase Troponin T C-Reactive Protein Total Protein Albumin Prealbumin Cholesterol LDL Cholesterol Direct HDL Cholesterol Urine WBC (Auto) Vancomycin Trough Coronavirus (PCR) Crossmatch 07/28/19 07/28/19 07/28/19 10:13 10:13 23:54 WBC 18.5 H RBC 3.20 L Hgb 8.8 L Hct 26.8 L MCV MCH 27 L MCHC RDW 19.9 H Plt Count 730 H Lymph % (Auto) [place] % (Auto) Lymph # [place] # Baso # Seg Neutrophils % Seg Neuts % (Manual) Lymphocytes % (Manual) Monocytes % (Manual) Nucleated RBC % Seg Neutrophils # Seg Neutrophils # Man Lymphocytes # (Manual) Monocytes # (Manual) PT INR D-Dimer ABG pH ABG pO2 ABG HCO3 ABG O2 Saturation ABG Base Excess ABG Hemoglobin Oxyhemoglobin Sodium Potassium 3.2 L Chloride 97.5 L Carbon Dioxide 31 H BUN Creatinine 0.5 L Glucose POC Glucose 120 H Lactic Acid Calcium Magnesium Iron TIBC Ferritin AST ALT Lactate Dehydrogenase Troponin T C-Reactive Protein Total Protein Albumin Prealbumin Cholesterol LDL Cholesterol Direct HDL Cholesterol Urine WBC (Auto) Vancomycin Trough Coronavirus (PCR) Crossmatch 07/29/19 07/29/19 07/29/19 11:57 17:43 Unknown WBC RBC Hgb Hct MCV MCH MCHC RDW Plt Count Lymph % (Auto) [place] % (Auto) Lymph # [place] # Baso # Seg Neutrophils % Seg Neuts % (Manual) Lymphocytes % (Manual) Monocytes % (Manual) Nucleated RBC % Seg Neutrophils # Seg Neutrophils # Man Lymphocytes # (Manual) Monocytes # (Manual) PT INR D-Dimer ABG pH ABG pO2 ABG HCO3 ABG O2 Saturation ABG Base Excess ABG Hemoglobin Oxyhemoglobin Sodium Potassium Chloride Carbon Dioxide BUN Creatinine Glucose POC Glucose 112 H Lactic Acid Calcium Magnesium Iron TIBC Ferritin AST ALT Lactate Dehydrogenase Troponin T C-Reactive Protein Total Protein Albumin Prealbumin Cholesterol LDL Cholesterol Direct HDL Cholesterol Urine WBC (Auto) 63.0 H Vancomycin Trough Coronavirus (PCR) Positive A Crossmatch 07/30/19 07/30/19 07/30/19 00:20 04:35 04:35 WBC 24.3 H RBC 3.12 L Hgb 8.5 L Hct 26.3 L MCV MCH 27 L MCHC RDW 20.2 H Plt Count 550 H Lymph % (Auto) [place] % (Auto) Lymph # [place] # Baso # Seg Neutrophils % Seg Neuts % (Manual) Lymphocytes % (Manual) Monocytes % (Manual) Nucleated RBC % Seg Neutrophils # Seg Neutrophils # Man Lymphocytes # (Manual) Monocytes # (Manual) PT INR D-Dimer ABG pH ABG pO2 ABG HCO3 ABG O2 Saturation ABG Base Excess ABG Hemoglobin Oxyhemoglobin Sodium Potassium 3.0 L Chloride 96.3 L Carbon Dioxide 32 H BUN Creatinine 0.5 L Glucose POC Glucose 106 H Lactic Acid Calcium Magnesium Iron TIBC Ferritin AST ALT Lactate Dehydrogenase Troponin T C-Reactive Protein Total Protein Albumin Prealbumin Cholesterol LDL Cholesterol Direct HDL Cholesterol Urine WBC (Auto) Vancomycin Trough Coronavirus (PCR) Crossmatch 07/31/19 07/31/19 07/31/19 04:42 04:42 11:33 WBC 23.8 H RBC 3.10 L Hgb 8.4 L Hct 26.1 L MCV MCH 27 L MCHC RDW 19.6 H Plt Count 561 H Lymph % (Auto) [place] % (Auto) Lymph # [place] # Baso # Seg Neutrophils % Seg Neuts % (Manual) Lymphocytes % (Manual) Monocytes % (Manual) Nucleated RBC % Seg Neutrophils # Seg Neutrophils # Man Lymphocytes # (Manual) Monocytes # (Manual) PT INR D-Dimer ABG pH ABG pO2 ABG HCO3 ABG O2 Saturation ABG Base Excess ABG Hemoglobin Oxyhemoglobin Sodium 135 L Potassium Chloride 93.9 L Carbon Dioxide 32 H BUN Creatinine 0.4 L Glucose POC Glucose 116 H Lactic Acid Calcium Magnesium Iron TIBC Ferritin AST ALT Lactate Dehydrogenase Troponin T C-Reactive Protein Total Protein Albumin 1.6 L Prealbumin 0.037 L Cholesterol LDL Cholesterol Direct HDL Cholesterol Urine WBC (Auto) Vancomycin Trough Coronavirus (PCR) Crossmatch 07/31/19 08/01/19 08/01/19 23:33 04:57 04:57 WBC 26.7 H RBC 3.12 L Hgb 8.5 L Hct 26.3 L MCV MCH 27 L MCHC RDW 19.2 H Plt Count 602 H Lymph % (Auto) [place] % (Auto) Lymph # [place] # Baso # Seg Neutrophils % Seg Neuts % (Manual) 93.0 H Lymphocytes % (Manual) 2.0 L Monocytes % (Manual) Nucleated RBC % Seg Neutrophils # Seg Neutrophils # Man 24.8 H Lymphocytes # (Manual) 0.5 L Monocytes # (Manual) 1.1 H PT INR D-Dimer ABG pH ABG pO2 ABG HCO3 ABG O2 Saturation ABG Base Excess ABG Hemoglobin Oxyhemoglobin Sodium 132 L Potassium Chloride 93.8 L Carbon Dioxide 31 H BUN Creatinine 0.3 L Glucose POC Glucose 148 H Lactic Acid Calcium 8.1 L Magnesium Iron TIBC Ferritin AST ALT Lactate Dehydrogenase Troponin T C-Reactive Protein Total Protein Albumin Prealbumin Cholesterol LDL Cholesterol Direct HDL Cholesterol Urine WBC (Auto) Vancomycin Trough Coronavirus (PCR) Crossmatch 08/01/19 08/02/19 08/02/19 12:16 00:22 05:24 WBC RBC Hgb Hct MCV MCH MCHC RDW Plt Count Lymph % (Auto) [place] % (Auto) Lymph # [place] # Baso # Seg Neutrophils % Seg Neuts % (Manual) Lymphocytes % (Manual) Monocytes % (Manual) Nucleated RBC % Seg Neutrophils # Seg Neutrophils # Man Lymphocytes # (Manual) Monocytes # (Manual) PT INR D-Dimer ABG pH ABG pO2 ABG HCO3 ABG O2 Saturation ABG Base Excess ABG Hemoglobin Oxyhemoglobin Sodium Potassium Chloride Carbon Dioxide BUN Creatinine Glucose POC Glucose 120 H 119 H 113 H Lactic Acid Calcium Magnesium Iron TIBC Ferritin AST ALT Lactate Dehydrogenase Troponin T C-Reactive Protein Total Protein Albumin Prealbumin Cholesterol LDL Cholesterol Direct HDL Cholesterol Urine WBC (Auto) Vancomycin Trough Coronavirus (PCR) Crossmatch 08/04/19 08/04/19 05:38 05:38 WBC 26.1 H RBC 2.77 L Hgb 7.5 L Hct 23.2 L MCV MCH 27 L MCHC RDW 19.2 H Plt Count 648 H Lymph % (Auto) [place] % (Auto) Lymph # [place] # Baso # Seg Neutrophils % Seg Neuts % (Manual) 90.5 H Lymphocytes % (Manual) 3.5 L Monocytes % (Manual) Nucleated RBC % Seg Neutrophils # Seg Neutrophils # Man 23.6 H Lymphocytes # (Manual) 0.9 L Monocytes # (Manual) 1.2 H PT INR D-Dimer ABG pH ABG pO2 ABG HCO3 ABG O2 Saturation ABG Base Excess ABG Hemoglobin Oxyhemoglobin Sodium 132 L Potassium 3.4 L D Chloride 92.7 L Carbon Dioxide 33 H BUN Creatinine 0.2 L Glucose POC Glucose Lactic Acid Calcium 8.1 L Magnesium Iron TIBC Ferritin AST ALT Lactate Dehydrogenase Troponin T C-Reactive Protein Total Protein Albumin Prealbumin Cholesterol LDL Cholesterol Direct HDL Cholesterol Urine WBC (Auto) Vancomycin Trough Coronavirus (PCR) Crossmatch Allied health notes reviewed: nursing
--- NOTE | 2019-08-04 11:38 | Progress Note ---
Assessment and Plan Assessment and plan: --COVid positive pneumonia with severe sepsis Received Plaquenil and cefepime, monitor off antibiotics ID following --Septic shock: On Levophed Persistent hypotension, titrate to systolic blood pressure more than 100 -- Acute respiratory Failure with Hypoxia Due to bilateral PNA with COVID 19 infection. On ventilatory support, unable to wean Pulmonary critical following --COPD with exacerbation Likely due to COVID-19 pneumonia Continue scheduled nebs --Anemia, Microcytic persistent s/p total 3 unit of PRBC, today Hb today 9.1 --Pressure Ulcers: POA buttocks, right lateral foot area wound and supportive care --Hyponatremia, resolved --DM type 2: Accu-Chek SCC tube feeding, insulin as needed --h/o HTN Essential, now hypotensive On Levophed --Seizure D/o/CVA/immobility/BIpolar D/o/SCZ Seizure precautions, antiepileptic medications --Severe PCM, TF supportive care, dietary following patient is DNR- Called and verified information Very poor prognosis, Recommend hospice 07/04: COVID +ve, start on plaquinil, called no answer 07/05: transfuse one unit PRBC, Hb dropped to ~6, called and updated 07/06; H&H stable, serum chemistry improved. On mechanical ventilation with high inflammatory markers. Continue Plaquenil and empiric antibiotics. ID following, prognosis remains guarded and extremely poor. 07/07: On mechanical ventilation with high inflammatory markers. Continue Plaquenil and empiric antibiotics. ID following, prognosis remains guarded and extremely poor. 07/08: Called today and verified the CODE STATUS. Patient remains DNR. He is still intubated, with poor prognosis. Continue to follow inflammatory markers. 07/09 wean off from vent as tolerated, completed empiric antibiotic and Plaquenil 07/10 wean off from vent as tolerated. poor prognosis 07/11 hb 6.7 today, transfuse one PRBC. wean off from vent as tolerated. poor prognosis 07/12 remains critically on vent. Hb 6.9 07/13 Hb dropped to 6.6, transfuse 1 unit of PRBC, remains on vent critically ill Hypotensive, fluid bolus, if no improvement start Levophed 07/14; remains anemic with hemoglobin of 6.8, received total 3 units of PRBC Additional 1 unit of PRBC today, stool for occult blood to rule out GI causes Started back on Levophed due to hypotension 07/15; patient remains critically ill, hypotensive on Levophed 07/16: Today remains intubated on vent, persistent hypotension on Levophed 07/17; clinically no change, pressor dependent[on Levophed] DNR status 07/18: Patient remains hypotensive requiring Levophed, intubated on vent Unable to wean, critically ill. DNR 07/20/2019 Patient remains hypotensive requiring Levophed, intubated on vent. Patient currently with AC mode ventilation, rate 20, tidal volume 500, FiO2 40% and PEEP 6. Patient is a poor prognosis and apparently was on hospice recently. 07/21/2019. Patient with PEG tube that was clogged yesterday. surgery evaluated the patient and noted Very long PEG tubing with thick material inside. The ent celsa tube was stripped and a large amount of formed tube feed was expressed. The tube was then flushed with sprite and flushed easily. Tube clamped. Patient currently with AC mode ventilation, rate 20, tidal volume 500, FiO2 40% and PEEP 6. Patient is a poor prognosis and apparently was on hospice recently. 07/22/2019. Patient currently with AC mode ventilation, rate 20, tidal volume 500, FiO2 30% and PEEP 6. Patient on sedation with fentanyl drip. Continue Levophed to maintain MAP greater than 65. Patient is a poor prognosis and apparently was on hospice recently. 07/23/2019. Patient currently with AC mode ventilation, rate 20, tidal volume 500, FiO2 30% and PEEP 6. Patient on sedation with fentanyl drip. Continue Levophed to maintain MAP greater than 65. Patient is a poor prognosis and apparently was on hospice recently. 07/24/2019 Patient with Covid-19 infection with pneumonia, acute respiratory failure, intubated on ventilator. No more fever. Continue current management. 07/25/2019 Patient with Covid-19 infection with pneumonia, acute respiratory failure, intubated on ventilator. fever is now resolved. Sedated with propofol 07/26/2019 Patient with covid-19 infection. Still intubated, on vent. 07/27/2019 Patient with Covid-19. he is still critically ill. patient has DNR order. 07/28/2019 Patient with Covid-19 infection. Will repeat labs today. Surgeon consulted for tracheostomy. 07/29/2019 Patient with Covid-19. hypokalemia yesterday, replaced. Will recheck labs in am. 07/30/2019 patient with Covid-19 infection with acute respiratory failure. He is intubated on ventilator. has hypokalemia. replace and recheck BMP in am. patient has UTI, started on Cefepime. 07/31/2019. patient with Covid-19 infection with acute respiratory failure. He is intubated on ventilator. Repeat chest x-ray reveals decreased infiltrates. urology consultation and wound care consult per ID. Follow-up urine and blood culture. Tracheostomy per surgery. 08/01/2019. patient with Covid-19 infection with acute respiratory failure. He is intubated on ventilator. Patient currently with PSV trials. Pressure support 18/PEEP 6. FiO2 30%. Tracheostomy to be placed per surgery wound COVID testing negative. 08/02/2019. Patient with COVID-19 infection and acute respiratory failure on mechanical ventilation. Continue with PSVT trials with pressure support increased to 20. Follow-up serial chest x-ray. Continue Fentanyl infusion and wean sedation as tolerated. Continue daily spontaneous breathing trials. 08/03/2019. Patient with COVID-19 infection and acute respiratory failure on mechanical ventilation. Continue with PSV trials with pressure support increased to 20. Follow-up serial chest x-ray. Continue Fentanyl infusion and wean sedation as tolerated. Continue daily spontaneous breathing trials. 08/04/2019. Patient with COVID-19 infection and acute respiratory failure on mechanical ventilation. Continue with PSV trials 14/6, FiO2 30%. Continue Fentanyl infusion and wean sedation as tolerated. Continue daily spontaneous breathing trials. Tracheostomy placement to be scheduled when COVID testing is negative per surgery. Monitor off antibiotics per ID recommendations The high probability of a clinically significant, sudden or life threatening deterioration of the [respiratory, CVS, CHOCOLATE MOLDER] system(s) required my full and direct attention, intervention and personal management. The aggregate critical care time was [31] minutes. This time is in addition to time spent performing reported procedures but includes the following: [x] Data Review and interpretation [x] Patient assessment and monitoring of vital signs [x] Documentation [x] Medication orders and management History Interval history: 69-year-old male patient with PMH of CVA with RHP, HTN, DM2, SCZ, Dementia, Alcohol use D/o, Seizure D/O, presents to the emergency department via EMS from home with progressive SOB and impending espiratory failure with an unresponsive . PT was intubated was admitted through emergency room to ICU treated for sepsis, b/l PNA, acute respiratory failure received antibiotics. Patient was tested positive for COVID19. Evaluated by ID , received antibiotics Plaquenil, and inflammatory markers were checked and followed. Patient was hypotensive requiring Levophed, continues to be hypotensive currently on Levophed, unable to wean remains intubated on ventilatory support, critically ill, DNR status however family wants full treatment. Hospitalist Physical - Constitutional Vitals: Temp Pulse Resp BP Pulse Ox 98.9 F 108 H 20 133/68 99 08/04/19 08:00 08/04/19 10:00 08/04/19 10:00 08/04/19 10:00 08/04/19 10:00 General appearance: Present: severe distress, well-nourished, other (Orally intubated on vent) - EENT Eyes: Present: PERRL, EOM intact ENT: hearing intact, clear oral mucosa, dentition normal - Neck Neck: Present: supple, normal ROM - Respiratory Respiratory effort: normal Respiratory: bilateral: CTA - Cardiovascular Rhythm: regular Heart Sounds: Present: S1 & S2. Absent: gallop, rub - Extremities Extremities: no ischemia, No edema, Full ROM - Abdominal General gastrointestinal: soft, non-tender, non-distended, normal bowel sounds - Integumentary Integumentary: Present: clear, warm, dry - Neurologic Neurologic: CNII-XII intact, moves all extremities HEART Score - HEART Score Troponin: Troponin T 0.013 ng/mL (0.00-0.029) 07/04/19 07:05 Results - Labs CBC & Chem 7: 08/04/19 05:38 08/04/19 05:38 Labs: Laboratory Last Values WBC 26.1 K/mm3 (4.5-11.0) H 08/04/19 05:38 RBC 2.77 M/mm3 (3.65-5.03) L 08/04/19 05:38 Hgb 7.5 gm/dl (11.8-15.2) L 08/04/19 05:38 Hct 23.2 % (35.5-45.6) L 08/04/19 05:38 MCV 84 fl (84-94) 08/04/19 05:38 MCH 27 pg (28-32) L 08/04/19 05:38 MCHC 32 % (32-34) 08/04/19 05:38 RDW 19.2 % (13.2-15.2) H 08/04/19 05:38 Plt Count 648 K/mm3 (140-440) H 08/04/19 05:38 Lymph % (Auto) 4.9 % (13.4-35.0) L 07/19/19 08:45 [place]es % (Auto) 12.2 % (0.0-7.3) H 07/22/19 05:38 Eos % (Auto) 1.0 % (0.0-4.3) 07/19/19 08:45 Baso % (Auto) 0.5 % (0.0-1.8) 07/19/19 08:45 Lymph # 0.8 K/mm3 (1.2-5.4) L 07/19/19 08:45 [place]es # 1.5 K/mm3 (0.0-0.8) H 07/22/19 05:38 Eos # 0.2 K/mm3 (0.0-0.4) 07/19/19 08:45 Baso # 0.1 K/mm3 (0.0-0.1) 07/19/19 08:45 Add Manual Diff Complete 08/04/19 05:38 Total Counted 200 08/04/19 05:38 Seg Neutrophils % 72.8 % (40.0-70.0) H 07/22/19 05:38 Seg Neuts % (Manual) 90.5 % (40.0-70.0) H 08/04/19 05:38 Band Neutrophils % 0 % 08/04/19 05:38 Lymphocytes % (Manual) 3.5 % (13.4-35.0) L 08/04/19 05:38 Reactive Lymphs % (Man) 0 % 08/04/19 05:38 Monocytes % (Manual) 4.5 % (0.0-7.3) 08/04/19 05:38 Eosinophils % (Manual) 1.0 % (0.0-4.3) 08/04/19 05:38 Basophils % (Manual) 0.5 % (0.0-1.8) 08/04/19 05:38 Metamyelocytes % 0 % 08/04/19 05:38 Myelocytes % 0 % 08/04/19 05:38 Promyelocytes % 0 % 08/04/19 05:38 Blast Cells % 0 % 08/04/19 05:38 Nucleated RBC % Not Reportable 08/04/19 05:38 Seg Neutrophils # 9.2 K/mm3 (1.8-7.7) H 07/22/19 05:38 Seg Neutrophils # Man 23.6 K/mm3 (1.8-7.7) H 08/04/19 05:38 Band Neutrophils # 0.0 K/mm3 08/04/19 05:38 Lymphocytes # (Manual) 0.9 K/mm3 (1.2-5.4) L 08/04/19 05:38 Abs React Lymphs (Man) 0.0 K/mm3 08/04/19 05:38 Monocytes # (Manual) 1.2 K/mm3 (0.0-0.8) H 08/04/19 05:38 Eosinophils # (Manual) 0.3 K/mm3 (0.0-0.4) 08/04/19 05:38 Basophils # (Manual) 0.1 K/mm3 (0.0-0.1) 08/04/19 05:38 Metamyelocytes # 0.0 K/mm3 08/04/19 05:38 Myelocytes # 0.0 K/mm3 08/04/19 05:38 Promyelocytes # 0.0 K/mm3 08/04/19 05:38 Blast Cells # 0.0 K/mm3 08/04/19 05:38 WBC Morphology Not Reportable 08/04/19 05:38 Hypersegmented Neuts Not Reportable 08/04/19 05:38 Hyposegmented Neuts Not Reportable 08/04/19 05:38 Hypogranular Neuts Not Reportable 08/04/19 05:38 Smudge Cells Not Reportable 08/04/19 05:38 Toxic Granulation Not Reportable 08/04/19 05:38 Toxic Vacuolation Not Reportable 08/04/19 05:38 Dohle Bodies Not Reportable 08/04/19 05:38 Pelger-Huet Anomaly Not Reportable 08/04/19 05:38 Mendy Rods Not Reportable 08/04/19 05:38 Platelet Estimate Consistent w auto 08/04/19 05:38 Clumped Platelets Not Reportable 08/04/19 05:38 Plt Clumps, EDTA Not Reportable 08/04/19 05:38 Large Platelets Not Reportable 08/04/19 05:38 Giant Platelets Not Reportable 08/04/19 05:38 Platelet Satelliting Not Reportable 08/04/19 05:38 Plt Morphology Comment Not Reportable 08/04/19 05:38 RBC Morphology Not Reportable 08/04/19 05:38 Dimorphic RBCs Not Reportable 08/04/19 05:38 Polychromasia Not Reportable 08/04/19 05:38 Hypochromasia Not Reportable 08/04/19 05:38 Poikilocytosis Not Reportable 08/04/19 05:38 Anisocytosis 1+ 08/04/19 05:38 Microcytosis Not Reportable 08/04/19 05:38 Macrocytosis Not Reportable 08/04/19 05:38 Spherocytes Not Reportable 08/04/19 05:38 Pappenheimer Bodies Not Reportable 08/04/19 05:38 Sickle Cells Not Reportable 08/04/19 05:38 Target Cells Not Reportable 08/04/19 05:38 Tear Drop Cells Not Reportable 08/04/19 05:38 Ovalocytes Not Reportable 08/04/19 05:38 Stomatocytes Few 08/01/19 04:57 Helmet Cells Not Reportable 08/04/19 05:38 [place] Bodies Not Reportable 08/04/19 05:38 [place] Rings Not Reportable 08/04/19 05:38 Joanne Cells Not Reportable 08/04/19 05:38 Bite Cells Not Reportable 08/04/19 05:38 Crenated Cell Not Reportable 08/04/19 05:38 Elliptocytes Not Reportable 08/04/19 05:38 Acanthocytes (Spur) Not Reportable 08/04/19 05:38 Rouleaux Not Reportable 08/04/19 05:38 Hemoglobin C Crystals Not Reportable 08/04/19 05:38 Schistocytes Not Reportable 08/04/19 05:38 Malaria parasites Not Reportable 08/04/19 05:38 Jeevan Bodies Not Reportable 08/04/19 05:38 Hem Pathologist Commnt No 08/04/19 05:38 PT 16.0 Sec. (12.2-14.9) H 07/03/19 22:20 INR 1.26 (0.87-1.13) H 07/03/19 22:20 D-Dimer 1142.18 ng/mlDDU (0-234) H 07/08/19 00:45 ABG pH 7.430 pH Units (7.350-7.450) 07/27/19 05:16 ABG pCO2 48.2 mm Hg 07/27/19 05:16 ABG pO2 63.4 mm Hg (80.0-90.0) L 07/27/19 05:16 ABG HCO3 31.3 mmol/L (20.0-26.0) H 07/27/19 05:16 ABG O2 Saturation 92.7 % (95.0-99.0) L 07/27/19 05:16 ABG O2 Content 9.8 (0.0-44) 07/27/19 05:16 ABG Base Excess 6.3 mmol/L (-2.0-3.0) H 07/27/19 05:16 ABG Hemoglobin 7.6 gm/dl (14.0-18.0) L 07/27/19 05:16 ABG Carboxyhemoglobin 1.6 % (0.0-5.0) 07/27/19 05:16 ABG Methemoglobin 0.4 % (0.0-1.5) 07/27/19 05:16 Oxyhemoglobin 90.9 % (95.0-99.0) L 07/27/19 05:16 FiO2 25 % 07/27/19 05:16 Sodium 132 mmol/L (137-145) L 08/04/19 05:38 Potassium 3.4 mmol/L (3.6-5.0) L D 08/04/19 05:38 Chloride 92.7 mmol/L (98-107) L 08/04/19 05:38 Carbon Dioxide 33 mmol/L (22-30) H 08/04/19 05:38 Anion Gap 10 mmol/L 08/04/19 05:38 BUN 9 mg/dL (9-20) 08/04/19 05:38 Creatinine 0.2 mg/dL (0.8-1.5) L 08/04/19 05:38 Estimated GFR > 60 ml/min 08/04/19 05:38 BUN/Creatinine Ratio 45 % 08/04/19 05:38 Glucose 99 mg/dL (75-100) 08/04/19 05:38 POC Glucose 99 (70-105) 08/02/19 12:18 Osmolality 268 Mosm/kg 07/05/19 04:00 Lactic Acid 3.30 mmol/L (0.7-2.0) H* 07/04/19 07:05 Uric Acid 7.2 mg/dL (3.5-7.6) 07/05/19 04:00 Calcium 8.1 mg/dL (8.4-10.2) L 08/04/19 05:38 Phosphorus 3.60 mg/dL (2.5-4.5) 07/05/19 04:00 Magnesium 1.80 mg/dL (1.7-2.3) 07/11/19 05:14 Iron 9 ug/dL (49-181) L 07/04/19 07:05 TIBC 97 mcg/dL (250-450) L 07/04/19 07:05 Ferritin 839.0 ng/mL (13.0-400.0) H 07/08/19 00:45 Total Bilirubin 0.20 mg/dL (0.1-1.2) 07/04/19 07:05 AST 73 units/L (5-40) H 07/04/19 07:05 ALT 91 units/L (7-56) H 07/04/19 07:05 Alkaline Phosphatase 114 units/L (35-129) 07/04/19 07:05 Ammonia 35.0 umol/L (25-60) 07/03/19 23:58 Lactate Dehydrogenase 277 units/L (91-180) H 07/10/19 04:00 Troponin T 0.013 ng/mL (0.00-0.029) 07/04/19 07:05 C-Reactive Protein 15.10 mg/dL (0.00-1.30) H 07/10/19 04:00 Total Protein 5.5 g/dL (6.3-8.2) L 07/04/19 07:05 Albumin 1.6 g/dL (3.9-5) L 07/31/19 04:42 Albumin/Globulin Ratio 0.6 % 07/04/19 07:05 Prealbumin 0.037 g/L (0.200-0.400) L 07/31/19 04:42 Triglycerides 33 mg/dL (2-149) 07/03/19 19:57 Cholesterol 47 mg/dL (50-199) L 07/03/19 19:57 LDL Cholesterol Direct 25 mg/dL (50-130) L 07/03/19 19:57 HDL Cholesterol 20 mg/dL (40-59) L 07/03/19 19:57 Cholesterol/HDL Ratio 2.35 % 07/03/19 19:57 Procalcitonin 24.82 ng/mL (<0.15) 07/30/19 12:59 TSH 2.170 mlU/mL (0.270-4.200) 07/03/19 22:20 Total Cortisol 28.0 mcg/dL () 07/05/19 10:11 Urine Color Yellow (Yellow) 07/29/19 11:57 Urine Turbidity Clear (Clear) 07/29/19 11:57 Urine pH 7.0 (5.0-7.0) 07/29/19 11:57 Ur Specific [place] 1.012 (1.003-1.030) 07/29/19 11:57 Urine Protein <15 mg/dl mg/dL (Negative) 07/29/19 11:57 Urine Glucose (UA) Neg mg/dL (Negative) 07/29/19 11:57 Urine Ketones Neg mg/dL (Negative) 07/29/19 11:57 Urine Blood Sm (Negative) 07/29/19 11:57 Urine Nitrite Neg (Negative) 07/29/19 11:57 Urine Bilirubin Neg (Negative) 07/29/19 11:57 Urine Urobilinogen 4.0 mg/dL (<2.0) 07/29/19 11:57 Ur Leukocyte Esterase Mod (Negative) 07/29/19 11:57 Urine WBC (Auto) 63.0 /HPF (0.0-6.0) H 07/29/19 11:57 Urine RBC (Auto) 14.0 /HPF (0.0-6.0) 07/29/19 11:57 U Epithel Cells (Auto) < 1.0 /HPF (0-13.0) 07/29/19 11:57 Urine Bacteria (Auto) 1+ /HPF (Negative) 07/29/19 11:57 Urine WBC Clumps Few /HPF 07/03/19 21:13 Urine Mucus Few /HPF 07/03/19 21:13 Urine Osmolality 293 Mosm/kg 07/05/19 08:15 Vancomycin Trough 23.2 ug/mL (5.0-20.0) H 07/05/19 17:54 Urine Opiates Screen Presumptive negative 07/03/19 21:13 Urine Methadone Screen Presumptive negative 07/03/19 21:13 Ur Barbiturates Screen Presumptive negative 07/03/19 21:13 Ur Phencyclidine Scrn Presumptive negative 07/03/19 21:13 Ur Amphetamines Screen Presumptive negative 07/03/19 21:13 U Benzodiazepines Scrn Presumptive negative 07/03/19 21:13 Urine Cocaine Screen Presumptive negative 07/03/19 21:13 U Marijuana (THC) Screen Presumptive negative 07/03/19 21:13 Drugs of Abuse Note Disclamer 07/03/19 21:13 Plasma/Serum Alcohol < 0.01 % (0-0.07) 07/03/19 23:58 Coronavirus (PCR) Positive (Negative) A 07/29/19 Unknown Blood Type B POSITIVE 07/12/19 08:49 Antibody Screen Negative 07/12/19 08:49 Crossmatch See Detail 07/12/19 08:49 Microbiology: Microbiology 07/30/19 12:59 Peripheral/Venous Blood Culture - Preliminary NO GROWTH AFTER 4 DAYS 07/30/19 12:59 Peripheral/Venous Blood Culture - Preliminary NO GROWTH AFTER 4 DAYS 07/30/19 Unknown Tracheal Aspirate Sputum Culture - Final Pseudomonas Aeruginosa Wright/IV: Voiding Method Indwelling Catheter IV Catheter Type [Left Forearm Peripheral IV ] IV Catheter Type [Left Upper Mid-line arm] IV Catheter Type [Right INT / Saline Lock Forearm] IV Catheter Type [Right Hand] INT / Saline Lock IV Catheter Type [Right CVL Femoral] IV Catheter Type [Left INT / Saline Lock External Jugular] Active Medications - Current Medications Current Medications: Generic Name Dose Route Start Last Admin Trade Name Freq PRN Reason Stop Dose Admin Acetaminophen 650 mg 07/04/19 04:24 Tylenol NE Q6H PRN Pain MILD(1-3)/Fever >100.5/MURO Acetaminophen 650 mg 07/10/19 04:00 08/03/19 09:25 Tylenol PO 650 mg Q6HR PRN Administration Pain, Mild (1-3) FEVER Lipase/Protease/Amylase 1 each 07/04/19 10:04 07/20/19 06:[address] 10,500 Unit FEEDTUBE 1 each PRN PRN Administration For Clogged Feeding Tube Aspirin 81 mg 07/05/19 10:00 08/04/19 09:07 Baby Aspirin PO 81 mg QDAY TAMMIE Administration Dextrose 50 ml 07/04/19 06:54 D50w (25gm) Syringe IV Q30MIN PRN Hypoglycemia Protocol Docusate Sodium 100 mg 07/10/19 10:00 08/04/19 09:07 Colace PO 100 mg BID TAMMIE Administration Enoxaparin Sodium 40 mg 07/24/19 10:00 08/04/19 09:07 Enoxaparin SUB-Q 40 mg QDAY@1000 TAMMIE Administration Famotidine 20 mg 07/23/19 22:00 08/04/19 09:07 Pepcid PO 20 mg BID TAMMIE Administration Fentanyl 50 mcg 07/21/19 15:18 Sublimaze IV Q10MIN PRN ANALGESIA Fentanyl 25 mcg 08/03/19 11:00 08/03/19 10:43 Duragesic TD 25 mcg Q3D TAMMIE Administration Folic Acid 1 mg 07/05/19 10:00 08/04/19 09:07 Folvite PO 1 mg QDAY TAMMIE Administration Hydrophilic Ointment 1 applic 07/03/19 19:56 07/05/19 17:42 Vaseline Lip Therapy TP 1 applic Q2HR PRN Administration Dry Lips Norepinephrine 4 mg in 250 mls @ 7.5 mls/hr 07/03/19 23:00 07/20/19 01:00 Levophed Drip 4 Mg/Ns 250 Ml IV Infused TITR TAMMIE Titration Protocol 2 MCG/MIN Insulin Human Lispro 0 unit 07/07/19 12:00 08/04/19 06:33 Humalog SUB-Q Not Given Q6HR TAMMIE Protocol Levetiracetam 750 mg 07/06/19 11:00 08/04/19 09:07 Keppra FEEDTUBE 750 mg Q12HR TAMMIE Administration Metoprolol Tartrate 5 mg 07/12/19 15:08 07/29/19 07:30 Metoprolol IV 5 mg Q6HR PRN Administration Tachyarrhythmias Multi-Ingred Cream/Lotion/Oil/Oint 1 applic 07/03/19 19:56 07/05/19 13:19 Artificial Tears Ophth Oint OU 1 applic Q4HR PRN Administration Dry Eye(s) Naloxone HCl 0.1 mg 07/04/19 04:24 Naloxone IV Q2MIN PRN Res Rate </= 8 or 02 SAT < 92% Oxycodone/Acetaminophen 1 tab 07/19/19 14:17 Percocet 5/325 PO Q4H PRN Pain, Moderate (4-6) Scopolamine 1 each 07/10/19 11:00 08/03/19 10:41 Transderm-Scop TD 1 each Q3D TAMMIE Administration Simple Syrup 15 ml 07/04/19 10:04 07/10/19 21:56 Simple Syrup FEEDTUBE 15 ml PRN PRN Administration Hypoglycemia Simple Syrup 30 ml 07/04/19 10:04 Simple Syrup FEEDTUBE PRN PRN Hypoglycemia Sodium Bicarbonate 325 mg 07/04/19 10:04 07/20/19 10:20 Sodium Bicarbonate FEEDTUBE 325 mg PRN PRN Administration For Clogged Feeding Tube Sodium Chloride 10 ml 07/04/19 10:00 08/04/19 09:08 Sodium Chloride Flush Syringe 10 Ml IV 10 ml BID TAMMIE Administration Sodium Chloride 10 ml 07/04/19 04:24 Sodium Chloride Flush Syringe 10 Ml IV PRN PRN LINE FLUSH Sodium Hypochlorite 1 applic 07/10/19 14:00 08/04/19 10:12 Dakin's Half Strength TP 1 applicatio BID TAMMIE Administration Nutrition/Malnutrition Assess - Dietary Evaluation Nutrition/Malnutrition Findings: Nutrition Notes Start: 07/04/19 09:17 Freq: Status: Active Protocol: Document 08/01/19 14:30 RAMANDEEP (Rec: 08/01/19 14:31 RAMANDEEP [email or web address]) Nutrition Notes Initial or Follow up Brief Note Current Diet TF - Nepro at 45ml/hr Labs/Tests K 4.3 Subjective/Other Information RD spoke with RN via phone at 12:35. Pt tolerating TF at goal rate. Nutrition Intervention Follow-Up By: 08/06/19 Additional Comments F/U: stable TF, vent status
[2019-08-05] MEDS: INSULIN LISPRO 100 UNIT/ML SUB-Q SCH ×4 (00:22→19:09)
[2019-08-05 06:10] LABS: Hematocrit 21.9 % (35.5-45.6); Hemoglobin 7.2 gm/dl (11.8-15.2); Mean Corpuscular HGB Conc 33 % (32-34); Mean Corpuscular Volume 83 fl (84-94); Platelet Count 691 K/mm3 (140-440); Red Blood Count 2.63 M/mm3 (3.65-5.03); Red Cell Distribution Width 18.9 % (13.2-15.2)
[2019-08-05 06:15] LABS: BUN/Creatinine Ratio 27; Blood Urea Nitrogen 8 mg/dL (9-20); Calcium 8.1 mg/dL (8.4-10.2); Hemolysis Index 1
--- NOTE | 2019-08-05 09:03 | Progress Note ---
Assessment and Plan Assessment and plan: --COVid positive pneumonia with severe sepsis Received Plaquenil and cefepime, monitor off antibiotics ID following --Septic shock: On Levophed Persistent hypotension, titrate to systolic blood pressure more than 100 -- Acute respiratory Failure with Hypoxia Due to bilateral PNA with COVID 19 infection. On ventilatory support, unable to wean Pulmonary critical following --COPD with exacerbation Likely due to COVID-19 pneumonia Continue scheduled nebs --Anemia, Microcytic persistent s/p total 3 unit of PRBC, today Hb today 9.1 --Pressure Ulcers: POA buttocks, right lateral foot area wound and supportive care --Hyponatremia, resolved --DM type 2: Accu-Chek SCC tube feeding, insulin as needed --h/o HTN Essential, now hypotensive On Levophed --Seizure D/o/CVA/immobility/BIpolar D/o/SCZ Seizure precautions, antiepileptic medications --Severe PCM, TF supportive care, dietary following patient is DNR- Called and verified information Very poor prognosis, Recommend hospice 07/04: COVID +ve, start on plaquinil, called no answer 07/05: transfuse one unit PRBC, Hb dropped to ~6, called and updated 07/06; H&H stable, serum chemistry improved. On mechanical ventilation with high inflammatory markers. Continue Plaquenil and empiric antibiotics. ID following, prognosis remains guarded and extremely poor. 07/07: On mechanical ventilation with high inflammatory markers. Continue Plaquenil and empiric antibiotics. ID following, prognosis remains guarded and extremely poor. 07/08: Called today and verified the CODE STATUS. Patient remains DNR. He is still intubated, with poor prognosis. Continue to follow inflammatory markers. 07/09 wean off from vent as tolerated, completed empiric antibiotic and Plaquenil 07/10 wean off from vent as tolerated. poor prognosis 07/11 hb 6.7 today, transfuse one PRBC. wean off from vent as tolerated. poor prognosis 07/12 remains critically on vent. Hb 6.9 07/13 Hb dropped to 6.6, transfuse 1 unit of PRBC, remains on vent critically ill Hypotensive, fluid bolus, if no improvement start Levophed 07/14; remains anemic with hemoglobin of 6.8, received total 3 units of PRBC Additional 1 unit of PRBC today, stool for occult blood to rule out GI causes Started back on Levophed due to hypotension 07/15; patient remains critically ill, hypotensive on Levophed 07/16: Today remains intubated on vent, persistent hypotension on Levophed 07/17; clinically no change, pressor dependent[on Levophed] DNR status 07/18: Patient remains hypotensive requiring Levophed, intubated on vent Unable to wean, critically ill. DNR 07/20/2019 Patient remains hypotensive requiring Levophed, intubated on vent. Patient currently with AC mode ventilation, rate 20, tidal volume 500, FiO2 40% and PEEP 6. Patient is a poor prognosis and apparently was on hospice recently. 07/21/2019. Patient with PEG tube that was clogged yesterday. surgery evaluated the patient and noted Very long PEG tubing with thick material inside. The ent celsa tube was stripped and a large amount of formed tube feed was expressed. The tube was then flushed with sprite and flushed easily. Tube clamped. Patient currently with AC mode ventilation, rate 20, tidal volume 500, FiO2 40% and PEEP 6. Patient is a poor prognosis and apparently was on hospice recently. 07/22/2019. Patient currently with AC mode ventilation, rate 20, tidal volume 500, FiO2 30% and PEEP 6. Patient on sedation with fentanyl drip. Continue Levophed to maintain MAP greater than 65. Patient is a poor prognosis and apparently was on hospice recently. 07/23/2019. Patient currently with AC mode ventilation, rate 20, tidal volume 500, FiO2 30% and PEEP 6. Patient on sedation with fentanyl drip. Continue Levophed to maintain MAP greater than 65. Patient is a poor prognosis and apparently was on hospice recently. 07/24/2019 Patient with Covid-19 infection with pneumonia, acute respiratory failure, intubated on ventilator. No more fever. Continue current management. 07/25/2019 Patient with Covid-19 infection with pneumonia, acute respiratory failure, intubated on ventilator. fever is now resolved. Sedated with propofol 07/26/2019 Patient with covid-19 infection. Still intubated, on vent. 07/27/2019 Patient with Covid-19. he is still critically ill. patient has DNR order. 07/28/2019 Patient with Covid-19 infection. Will repeat labs today. Surgeon consulted for tracheostomy. 07/29/2019 Patient with Covid-19. hypokalemia yesterday, replaced. Will recheck labs in am. 07/30/2019 patient with Covid-19 infection with acute respiratory failure. He is intubated on ventilator. has hypokalemia. replace and recheck BMP in am. patient has UTI, started on Cefepime. 07/31/2019. patient with Covid-19 infection with acute respiratory failure. He is intubated on ventilator. Repeat chest x-ray reveals decreased infiltrates. urology consultation and wound care consult per ID. Follow-up urine and blood culture. Tracheostomy per surgery. 08/01/2019. patient with Covid-19 infection with acute respiratory failure. He is intubated on ventilator. Patient currently with PSV trials. Pressure support 18/PEEP 6. FiO2 30%. Tracheostomy to be placed per surgery wound COVID testing negative. 08/02/2019. Patient with COVID-19 infection and acute respiratory failure on mechanical ventilation. Continue with PSVT trials with pressure support increased to 20. Follow-up serial chest x-ray. Continue Fentanyl infusion and wean sedation as tolerated. Continue daily spontaneous breathing trials. 08/03/2019. Patient with COVID-19 infection and acute respiratory failure on mechanical ventilation. Continue with PSV trials with pressure support increased to 20. Follow-up serial chest x-ray. Continue Fentanyl infusion and wean sedation as tolerated. Continue daily spontaneous breathing trials. 08/04/2019. Patient with COVID-19 infection and acute respiratory failure on mechanical ventilation. Continue with PSV trials 14/6, FiO2 30%. Continue Fentanyl infusion and wean sedation as tolerated. Continue daily spontaneous breathing trials. Tracheostomy placement to be scheduled when COVID testing is negative per surgery. Monitor off antibiotics per ID recommendations 08/05/2019. Patient with COVID-19 infection and acute respiratory failure on mechanical ventilation. Patient currently on AC mode, rate 14, tidal volume 500, FiO2 30% and PEEP of 6. Continue PSV trials as tolerated. Tracheostomy placement to be scheduled when COVID testing is negative per surgery. Monitor off antibiotics per ID recommendations The high probability of a clinically significant, sudden or life threatening deterioration of the [respiratory, [employer], [employer]] system(s) required my full and direct attention, intervention and personal management. The aggregate critical care time was [31] minutes. This time is in addition to time spent performing reported procedures but includes the follo wing: [x] Data Review and interpretation [x] Patient assessment and monitoring of vital signs [x] Documentation [x] Medication orders and management History Interval history: 69-year-old male patient with PMH of CVA with RHP, HTN, DM2, SCZ, Dementia, Alcohol use D/o, Seizure D/O, presents to the emergency department via EMS from home with progressive SOB and impending espiratory failure with an unresponsive . PT was intubated was admitted through emergency room to ICU treated for sepsis, b/l PNA, acute respiratory failure received antibiotics. Patient was tested positive for COVID19. Evaluated by ID , received antibiotics Plaquenil, and inflammatory markers were checked and followed. Patient was hypotensive requiring Levophed, continues to be hypotensive currently on Levophed, unable to wean remains intubated on ventilatory support, critically ill, DNR status however family wants full treatment. Hospitalist Physical - Constitutional Vitals: Temp Pulse Resp BP Pulse Ox 100.0 F H 94 H 15 143/65 98 08/05/19 08:00 08/05/19 06:00 08/05/19 06:00 08/05/19 06:00 08/05/19 06:00 General appearance: Present: severe distress, well-nourished, other (Orally intubated on vent) - EENT Eyes: Present: PERRL, EOM intact ENT: hearing intact, clear oral mucosa, dentition normal - Neck Neck: Present: supple, normal ROM - Respiratory Respiratory effort: normal Respiratory: bilateral: CTA - Cardiovascular Rhythm: regular Heart Sounds: Present: S1 & S2. Absent: gallop, rub - Extremities Extremities: no ischemia, No edema, Full ROM - Abdominal General gastrointestinal: soft, non-tender, non-distended, normal bowel sounds - Integumentary Integumentary: Present: clear, warm, dry - Neurologic Neurologic: CNII-XII intact, moves all extremities HEART Score - HEART Score Troponin: Troponin T 0.013 ng/mL (0.00-0.029) 07/04/19 07:05 Results - Labs CBC & Chem 7: 08/05/19 04:58 08/05/19 04:58 Labs: Laboratory Last Values WBC 21.0 K/mm3 (4.5-11.0) H 08/05/19 04:58 RBC 2.63 M/mm3 (3.65-5.03) L 08/05/19 04:58 Hgb 7.2 gm/dl (11.8-15.2) L 08/05/19 04:58 Hct 21.9 % (35.5-45.6) L 08/05/19 04:58 MCV 83 fl (84-94) L 08/05/19 04:58 MCH 27 pg (28-32) L 08/05/19 04:58 MCHC 33 % (32-34) 08/05/19 04:58 RDW 18.9 % (13.2-15.2) H 08/05/19 04:58 Plt Count 691 K/mm3 (140-440) H 08/05/19 04:58 Lymph % (Auto) 4.9 % (13.4-35.0) L 07/19/19 08:45 [place] % (Auto) 12.2 % (0.0-7.3) H 07/22/19 05:38 Eos % (Auto) 1.0 % (0.0-4.3) 07/19/19 08:45 Baso % (Auto) 0.5 % (0.0-1.8) 07/19/19 08:45 Lymph # 0.8 K/mm3 (1.2-5.4) L 07/19/19 08:45 [place] # 1.5 K/mm3 (0.0-0.8) H 07/22/19 05:38 Eos # 0.2 K/mm3 (0.0-0.4) 07/19/19 08:45 Baso # 0.1 K/mm3 (0.0-0.1) 07/19/19 08:45 Add Manual Diff Complete 08/04/19 05:38 Total Counted 200 08/04/19 05:38 Seg Neutrophils % 72.8 % (40.0-70.0) H 07/22/19 05:38 Seg Neuts % (Manual) 90.5 % (40.0-70.0) H 08/04/19 05:38 Band Neutrophils % 0 % 08/04/19 05:38 Lymphocytes % (Manual) 3.5 % (13.4-35.0) L 08/04/19 05:38 Reactive Lymphs % (Man) 0 % 08/04/19 05:38 Monocytes % (Manual) 4.5 % (0.0-7.3) 08/04/19 05:38 Eosinophils % (Manual) 1.0 % (0.0-4.3) 08/04/19 05:38 Basophils % (Manual) 0.5 % (0.0-1.8) 08/04/19 05:38 Metamyelocytes % 0 % 08/04/19 05:38 Myelocytes % 0 % 08/04/19 05:38 Promyelocytes % 0 % 08/04/19 05:38 Blast Cells % 0 % 08/04/19 05:38 Nucleated RBC % Not Reportable 08/04/19 05:38 Seg Neutrophils # 9.2 K/mm3 (1.8-7.7) H 07/22/19 05:38 Seg Neutrophils # Man 23.6 K/mm3 (1.8-7.7) H 08/04/19 05:38 Band Neutrophils # 0.0 K/mm3 08/04/19 05:38 Lymphocytes # (Manual) 0.9 K/mm3 (1.2-5.4) L 08/04/19 05:38 Abs React Lymphs (Man) 0.0 K/mm3 08/04/19 05:38 Monocytes # (Manual) 1.2 K/mm3 (0.0-0.8) H 08/04/19 05:38 Eosinophils # (Manual) 0.3 K/mm3 (0.0-0.4) 08/04/19 05:38 Basophils # (Manual) 0.1 K/mm3 (0.0-0.1) 08/04/19 05:38 Metamyelocytes # 0.0 K/mm3 08/04/19 05:38 Myelocytes # 0.0 K/mm3 08/04/19 05:38 Promyelocytes # 0.0 K/mm3 08/04/19 05:38 Blast Cells # 0.0 K/mm3 08/04/19 05:38 WBC Morphology Not Reportable 08/04/19 05:38 Hypersegmented Neuts Not Reportable 08/04/19 05:38 Hyposegmented Neuts Not Reportable 08/04/19 05:38 Hypogranular Neuts Not Reportable 08/04/19 05:38 Smudge Cells Not Reportable 08/04/19 05:38 Toxic Granulation Not Reportable 08/04/19 05:38 Toxic Vacuolation Not Reportable 08/04/19 05:38 Dohle Bodies Not Reportable 08/04/19 05:38 Pelger-Huet Anomaly Not Reportable 08/04/19 05:38 Mendy Rods Not Reportable 08/04/19 05:38 Platelet Estimate Consistent w auto 08/04/19 05:38 Clumped Platelets Not Reportable 08/04/19 05:38 Plt Clumps, EDTA Not Reportable 08/04/19 05:38 Large Platelets Not Reportable 08/04/19 05:38 Giant Platelets Not Reportable 08/04/19 05:38 Platelet Satelliting Not Reportable 08/04/19 05:38 Plt Morphology Comment Not Reportable 08/04/19 05:38 RBC Morphology Not Reportable 08/04/19 05:38 Dimorphic RBCs Not Reportable 08/04/19 05:38 Polychromasia Not Reportable 08/04/19 05:38 Hypochromasia Not Reportable 08/04/19 05:38 Poikilocytosis Not Reportable 08/04/19 05:38 Anisocytosis 1+ 08/04/19 05:38 Microcytosis Not Reportable 08/04/19 05:38 Macrocytosis Not Reportable 08/04/19 05:38 Spherocytes Not Reportable 08/04/19 05:38 Pappenheimer Bodies Not Reportable 08/04/19 05:38 Sickle Cells Not Reportable 08/04/19 05:38 Target Cells Not Reportable 08/04/19 05:38 Tear Drop Cells Not Reportable 08/04/19 05:38 Ovalocytes Not Reportable 08/04/19 05:38 Stomatocytes Few 08/01/19 04:57 Helmet Cells Not Reportable 08/04/19 05:38 [place] Bodies Not Reportable 08/04/19 05:38 Sanders Rings Not Reportable 08/04/19 05:38 Joanne Cells Not Reportable 08/04/19 05:38 Bite Cells Not Reportable 08/04/19 05:38 Crenated Cell Not Reportable 08/04/19 05:38 Elliptocytes Not Reportable 08/04/19 05:38 Acanthocytes (Spur) Not Reportable 08/04/19 05:38 Rouleaux Not Reportable 08/04/19 05:38 Hemoglobin C Crystals Not Reportable 08/04/19 05:38 Schistocytes Not Reportable 08/04/19 05:38 Malaria parasites Not Reportable 08/04/19 05:38 Jeevan Bodies Not Reportable 08/04/19 05:38 Hem Pathologist Commnt No 08/04/19 05:38 PT 16.0 Sec. (12.2-14.9) H 07/03/19 22:20 INR 1.26 (0.87-1.13) H 07/03/19 22:20 D-Dimer 1142.18 ng/mlDDU (0-234) H 07/08/19 00:45 ABG pH 7.430 pH Units (7.350-7.450) 07/27/19 05:16 ABG pCO2 48.2 mm Hg 07/27/19 05:16 ABG pO2 63.4 mm Hg (80.0-90.0) L 07/27/19 05:16 ABG HCO3 31.3 mmol/L (20.0-26.0) H 07/27/19 05:16 ABG O2 Saturation 92.7 % (95.0-99.0) L 07/27/19 05:16 ABG O2 Content 9.8 (0.0-44) 07/27/19 05:16 ABG Base Excess 6.3 mmol/L (-2.0-3.0) H 07/27/19 05:16 ABG Hemoglobin 7.6 gm/dl (14.0-18.0) L 07/27/19 05:16 ABG Carboxyhemoglobin 1.6 % (0.0-5.0) 07/27/19 05:16 ABG Methemoglobin 0.4 % (0.0-1.5) 07/27/19 05:16 Oxyhemoglobin 90.9 % (95.0-99.0) L 07/27/19 05:16 FiO2 25 % 07/27/19 05:16 Sodium 134 mmol/L (137-145) L 08/05/19 04:58 Potassium 3.2 mmol/L (3.6-5.0) L 08/05/19 04:58 Chloride 93.2 mmol/L (98-107) L 08/05/19 04:58 Carbon Dioxide 34 mmol/L (22-30) H 08/05/19 04:58 Anion Gap 10 mmol/L 08/05/19 04:58 BUN 8 mg/dL (9-20) L 08/05/19 04:58 Creatinine 0.3 mg/dL (0.8-1.5) L 08/05/19 04:58 Estimated GFR > 60 ml/min 08/05/19 04:58 BUN/Creatinine Ratio 27 % 08/05/19 04:58 Glucose 91 mg/dL (75-100) 08/05/19 04:58 POC Glucose 99 (70-105) 08/02/19 12:18 Osmolality 268 Mosm/kg 07/05/19 04:00 Lactic Acid 3.30 mmol/L (0.7-2.0) H* 07/04/19 07:05 Uric Acid 7.2 mg/dL (3.5-7.6) 07/05/19 04:00 Calcium 8.1 mg/dL (8.4-10.2) L 08/05/19 04:58 Phosphorus 3.60 mg/dL (2.5-4.5) 07/05/19 04:00 Magnesium 1.80 mg/dL (1.7-2.3) 07/11/19 05:14 Iron 9 ug/dL (49-181) L 07/04/19 07:05 TIBC 97 mcg/dL (250-450) L 07/04/19 07:05 Ferritin 839.0 ng/mL (13.0-400.0) H 07/08/19 00:45 Total Bilirubin 0.20 mg/dL (0.1-1.2) 07/04/19 07:05 AST 73 units/L (5-40) H 07/04/19 07:05 ALT 91 units/L (7-56) H 07/04/19 07:05 Alkaline Phosphatase 114 units/L (35-129) 07/04/19 07:05 Ammonia 35.0 umol/L (25-60) 07/03/19 23:58 Lactate Dehydrogenase 277 units/L (91-180) H 07/10/19 04:00 Troponin T 0.013 ng/mL (0.00-0.029) 07/04/19 07:05 C-Reactive Protein 15.10 mg/dL (0.00-1.30) H 07/10/19 04:00 Total Protein 5.5 g/dL (6.3-8.2) L 07/04/19 07:05 Albumin 1.6 g/dL (3.9-5) L 07/31/19 04:42 Albumin/Globulin Ratio 0.6 % 07/04/19 07:05 Prealbumin 0.037 g/L (0.200-0.400) L 07/31/19 04:42 Triglycerides 33 mg/dL (2-149) 07/03/19 19:57 Cholesterol 47 mg/dL (50-199) L 07/03/19 19:57 LDL Cholesterol Direct 25 mg/dL (50-130) L 07/03/19 19:57 HDL Cholesterol 20 mg/dL (40-59) L 07/03/19 19:57 Cholesterol/HDL Ratio 2.35 % 07/03/19 19:57 Procalcitonin 24.82 ng/mL (<0.15) 07/30/19 12:59 TSH 2.170 mlU/mL (0.270-4.200) 07/03/19 22:20 Total Cortisol 28.0 mcg/dL () 07/05/19 10:11 Urine Color Yellow (Yellow) 07/29/19 11:57 Urine Turbidity Clear (Clear) 07/29/19 11:57 Urine pH 7.0 (5.0-7.0) 07/29/19 11:57 Ur Specific [place] 1.012 (1.003-1.030) 07/29/19 11:57 Urine Protein <15 mg/dl mg/dL (Negative) 07/29/19 11:57 Urine Glucose (UA) Neg mg/dL (Negative) 07/29/19 11:57 Urine Ketones Neg mg/dL (Negative) 07/29/19 11:57 Urine Blood Sm (Negative) 07/29/19 11:57 Urine Nitrite Neg (Negative) 07/29/19 11:57 Urine Bilirubin Neg (Negative) 07/29/19 11:57 Urine Urobilinogen 4.0 mg/dL (<2.0) 07/29/19 11:57 Ur Leukocyte Esterase Mod (Negative) 07/29/19 11:57 Urine WBC (Auto) 63.0 /HPF (0.0-6.0) H 07/29/19 11:57 Urine RBC (Auto) 14.0 /HPF (0.0-6.0) 07/29/19 11:57 U Epithel Cells (Auto) < 1.0 /HPF (0-13.0) 07/29/19 11:57 Urine Bacteria (Auto) 1+ /HPF (Negative) 07/29/19 11:57 Urine WBC Clumps Few /HPF 07/03/19 21:13 Urine Mucus Few /HPF 07/03/19 21:13 Urine Osmolality 293 Mosm/kg 07/05/19 08:15 Vancomycin Trough 23.2 ug/mL (5.0-20.0) H 07/05/19 17:54 Urine Opiates Screen Presumptive negative 07/03/19 21:13 Urine Methadone Screen Presumptive negative 07/03/19 21:13 Ur Barbiturates Screen Presumptive negative 07/03/19 21:13 Ur Phencyclidine Scrn Presumptive negative 07/03/19 21:13 Ur Amphetamines Screen Presumptive negative 07/03/19 21:13 U Benzodiazepines Scrn Presumptive negative 07/03/19 21:13 Urine Cocaine Screen Presumptive negative 07/03/19 21:13 U Marijuana (THC) Screen Presumptive negative 07/03/19 21:13 Drugs of Abuse Note Disclamer 07/03/19 21:13 Plasma/Serum Alcohol < 0.01 % (0-0.07) 07/03/19 23:58 Coronavirus (PCR) Positive (Negative) A 07/29/19 Unknown Blood Type B POSITIVE 07/12/19 08:49 Antibody Screen Negative 07/12/19 08:49 Crossmatch See Detail 07/12/19 08:49 Microbiology: Microbiology 07/30/19 12:59 Peripheral/Venous Blood Culture - Final NO GROWTH AFTER 5 DAYS 07/30/19 12:59 Peripheral/Venous Blood Culture - Final NO GROWTH AFTER 5 DAYS Wright/IV: Voiding Method Indwelling Catheter IV Catheter Type [Left Forearm Peripheral IV ] IV Catheter Type [Left Upper Mid-line arm] IV Catheter Type [Right INT / Saline Lock Forearm] IV Catheter Type [Right Hand] INT / Saline Lock IV Catheter Type [Right CVL Femoral] IV Catheter Type [Left INT / Saline Lock External Jugular] Active Medications - Current Medications Current Medications: Generic Name Dose Route Start Last Admin Trade Name Freq PRN Reason Stop Dose Admin Acetaminophen 650 mg 07/04/19 04:24 Tylenol [place] Q6H PRN Pain MILD(1-3)/Fever >100.5/MURO Acetaminophen 650 mg 07/10/19 04:00 08/03/19 09:25 Tylenol PO 650 mg Q6HR PRN Administration Pain, Mild (1-3) FEVER Lipase/Protease/Amylase 1 each 07/04/19 10:04 07/20/19 06:15 Pancreaze 10,500 Unit FEEDTUBE 1 each PRN PRN Administration For Clogged Feeding Tube Aspirin 81 mg 07/05/19 10:00 08/04/19 09:07 Baby Aspirin PO 81 mg QDAY TAMMIE Administration Dextrose 50 ml 07/04/19 06:54 D50w (25gm) Syringe IV Q30MIN PRN Hypoglycemia Protocol Docusate Sodium 100 mg 07/10/19 10:00 08/04/19 21:30 Colace PO 100 mg BID TAMMIE Administration Enoxaparin Sodium 40 mg 07/24/19 10:00 08/04/19 09:07 Enoxaparin SUB-Q 40 mg QDAY@1000 TAMMIE Administration Famotidine 20 mg 07/23/19 22:00 08/04/19 21:30 Pepcid PO 20 mg BID TAMMIE Administration Fentanyl 50 mcg 07/21/19 15:18 Sublimaze IV Q10MIN PRN ANALGESIA Fentanyl 25 mcg 08/03/19 11:00 08/03/19 10:43 Duragesic TD 25 mcg Q3D TAMMIE Administration Folic Acid 1 mg 07/05/19 10:00 08/04/19 09:07 Folvite PO 1 mg QDAY TAMMIE Administration Hydrophilic Ointment 1 applic 07/03/19 19:56 07/05/19 17:42 Vaseline Lip Therapy TP 1 applic Q2HR PRN Administration Dry Lips Norepinephrine 4 mg in 250 mls @ 7.5 mls/hr 07/03/19 23:00 07/20/19 01:00 Levophed Drip 4 Mg/Ns 250 Ml IV Infused TITR TAMMIE Titration Protocol 2 MCG/MIN Insulin Human Lispro 0 unit 07/07/19 12:00 08/05/19 05:56 Humalog SUB-Q Not Given Q6HR [facility] Protocol Levetiracetam 750 mg 07/06/19 11:00 08/04/19 21:29 Keppra FEEDTUBE 750 mg Q12HR TAMMIE Administration Metoprolol Tartrate 5 mg 07/12/19 15:08 07/29/19 07:30 Metoprolol IV 5 mg Q6HR PRN Administration Tachyarrhythmias Multi-Ingred Cream/Lotion/Oil/Oint 1 applic 07/03/19 19:56 07/05/19 13:19 Artificial Tears Ophth Oint OU 1 applic Q4HR PRN Administration Dry Eye(s) Naloxone HCl 0.1 mg 07/04/19 04:24 Naloxone IV Q2MIN PRN Res Rate </= 8 or 02 SAT < 92% Oxycodone/Acetaminophen 1 tab 07/19/19 14:17 Percocet 5/325 PO Q4H PRN Pain, Moderate (4-6) Scopolamine 1 each 07/10/19 11:00 08/03/19 10:41 Transderm-Scop TD 1 each Q3D TAMMIE Administration Simple Syrup 15 ml 07/04/19 10:04 07/10/19 21:56 Simple Syrup FEEDTUBE 15 ml PRN PRN Administration Hypoglycemia Simple Syrup 30 ml 07/04/19 10:04 Simple Syrup FEEDTUBE PRN PRN Hypoglycemia Sodium Bicarbonate 325 mg 07/04/19 10:04 07/20/19 10:20 Sodium Bicarbonate FEEDTUBE 325 mg PRN PRN Administration For Clogged Feeding Tube Sodium Chloride 10 ml 07/04/19 10:00 08/04/19 21:30 Sodium Chloride Flush Syringe 10 Ml IV 10 ml BID TAMMIE Administration Sodium Chloride 10 ml 07/04/19 04:24 Sodium Chloride Flush Syringe 10 Ml IV PRN PRN LINE FLUSH Sodium Hypochlorite 1 applic 07/10/19 14:00 08/04/19 21:32 Dakin's Half Strength TP 1 applicatio BID TAMMIE Administration Nutrition/Malnutrition Assess - Dietary Evaluation Nutrition/Malnutrition Findings: Nutrition Notes Start: 07/04/19 09:17 Freq: Status: Active Protocol: Document 08/01/19 14:30 RAMANDEEP (Rec: 08/01/19 14:31 RAMANDEEP [email or web address] [email or web address]) Nutrition Notes Initial or Follow up Brief Note Current Diet TF - Nepro at 45ml/hr Labs/Tests K 4.3 Subjective/Other Information RD spoke with RN via phone at 12:35. Pt tolerating TF at goal rate. Nutrition Intervention Follow-Up By: 08/06/19 Additional Comments F/U: stable TF, vent status
[2019-08-05] MEDS: SODIUM HYPOCHLORITE, DAKIN'S 1/2 STRENGTH (0.25%) 473 ML TOPICAL SOLN TP SCH ×2 (09:20→22:06)
[2019-08-05] MEDS: levETIRAcetam 500 MG/5 ML ORAL LIQD FEEDTUBE SCH ×2 (10:12→22:01)
[2019-08-05] MEDS: DOCUSATE SODIUM 100 MG/10 ML ORAL LIQD PO SCH ×2 (10:12→22:01)
[2019-08-05] MEDS: FAMOTIDINE 20 MG TAB PO SCH ×2 (10:13→22:01)
[2019-08-05] MEDS: ASPIRIN 81 MG TAB CHEW PO SCH (10:13)
[2019-08-05] MEDS: FOLIC ACID 1 MG TAB PO SCH (10:13)
[2019-08-05] MEDS: ENOXAPARIN 40 MG/0.4 ML INJ SUB-Q SCH (10:14)
[2019-08-05 10:27] LABS: Basophils % (Manual) 0 % (0.0-1.8); Total Cells Counted 100
[2019-08-05 10:29] LABS: Hypochromasia Few; Platelet Estimate Consistent w Auto; Tear Drop Cells Few
--- NOTE | 2019-08-05 15:08 | Progress Note ---
Assessment and Plan Acute hypoxemic respiratory failure on MVS Severe sepsis with Shock. Bilateral Pneumonia. PUI coronavirus-19 infection. Acute possibly on chronic encephalopathy. Oropharyngeal dysphagia. Anemia. Decubitus ulcers Diabetes type 2. Hypertension. Leukocytosis. Anemia that is microcytic. Elevated serum transaminases. [id number] metabolic acidosis. Lactic acidosis. Severe protein-calorie malnutrition - no new issues, continue care as below - repeat COVID-19 testing pending - surgery evaluation ongoing for tracheostomy placement (await negative COVID test) - continue care as below otherwise - continue fentanyl gtt for pain control / sedation - continue to wean supplemental oxygen for target O2 sat's > 90% acutely - continue daily SAT's and SBT assessment as tolerated - VAP bundle addressed - continue lung protective strategies - continue bronchodilators with pulmonary hygiene per RT - wean per pulmonary driven protocols otherwise - prn Levophed for target MAP > 65 mmHg - continue airborne and contact COVID-19 precautions - COVID-19 test positive - complete anti-infectives and de-escalate per ID recommendations - continue wound care per WCT - sedation prn for target RASS 0 to -1 - accuchecks with glycemic control per SSI (While critically ill target blood glucose of 140-180 mg/dL; avoid hypoglycemia) - to avoid benzodiazepine's, reduce the possibility of delirium - prn analgesia per CPOT score - Maintenance of sleep-wake cycle, avoid delirium - continue enteral nutritional support at goal rate as tolerated - G.I. & VTE prophylaxis - PT/OT/ROM exercises - continue mobility protocols for pressure ulcer prophylaxis - Monitor hemodynamics closely - continue other care per attending / other consultants - discharge planning ongoing concurrently .... Re-evaluate in am & prn CONDITION: CRITICAL PROGNOSIS: GUARDED CODE STATUS: FULL CODE The high probability of a clinically significant, sudden or life-threatening deterioration of the [respiratory & cardiovascular] system(s) required my full and direct attention, intervention and personal management. The aggregate crit ical care time was [35] minutes without overlap. Time includes spent on; [x] Data Review and interpretation [x] Patient assessment and monitoring of vital signs [x] Documentation [x] Medication orders and management Subjective Date of service: 08/05/19 Principal diagnosis: Bilateral pneumonia, severe sepsis with septic shock, encephalopathy Interval history: Patient is seen today for: Ac hypoxemic Resp failure on MVS; Severe sepsis with Shock; Ivan. Pneumonia; PUI coronavirus-19 infection. Seen and examined at bedside; 24hour events reviewed; nursing and respiratory care staff consulted; no adverse overnight events reported to me; resting in bed; remains on MVS; weaning difficult; AMS is persistent; no emesis or overt aspiration Objective Vital Signs - 12hr 08/05/19 08/05/19 08/05/19 03:49 04:00 04:52 Temperature 99.9 F H Pulse Rate 97 H 95 H 93 H Respiratory 16 Rate Blood Pressure 135/65 130/73 O2 Sat by Pulse 98 98 Oximetry 08/05/19 08/05/19 08/05/19 05:00 06:00 07:00 Temperature Pulse Rate 96 H 94 H 94 H Respiratory 17 15 16 Rate Blood Pressure 133/70 143/65 145/72 O2 Sat by Pulse 98 98 99 Oximetry 08/05/19 08/05/19 08/05/19 08:00 08:15 09:00 Temperature 100.0 F H Pulse Rate 96 H 110 H 109 H Respiratory 14 32 H 32 H Rate Blood Pressure 145/71 141/71 147/72 O2 Sat by Pulse 99 97 98 Oximetry 08/05/19 08/05/19 08/05/19 10:00 11:00 12:00 Temperature 100.2 F H Pulse Rate 109 H 106 H 114 H Respiratory 34 H 34 H 36 H Rate Blood Pressure 148/73 149/73 142/70 O2 Sat by Pulse 97 97 99 Oximetry 08/05/19 08/05/19 08/05/19 12:10 13:00 14:00 Temperature Pulse Rate 111 H 109 H 107 H Respiratory 33 H 35 H 35 H Rate Blood Pressure 149/73 140/71 139/69 O2 Sat by Pulse 98 99 99 Oximetry Constitutional: appears uncomfortable, other (eelderly and chronically ill looking AAM, normocep[krystina;ic with mildly increased respiratory effort at rest) Eyes: non-icteric ENT: oropharynx moist, other (ETT 24 cm Pawan) Neck: supple, no lymphadenopathy, no JVD Effort: very labored Ascultation: Bilateral: diminished breath sounds, rhonchi Percussion: Bilateral: not dull Cardiovascular: regular rate and rhythm Gastrointestinal: normoactive bowel sounds, soft, non-tender, non-distended, other (+ PEG tube with mild TF leakage) Integumentary: decubitus ulcer Extremities: no cyanosis, no edema, pink and warm, pulses normal Neurologic: unable to assess Psychiatric: other (Unable to assess re: AMS) CBC and BMP: 08/08/19 04:41 08/08/19 04:41 ABG, PT/INR, D-dimer: ABG ABG pH 7.430 pH Units (7.350-7.450) 07/27/19 05:16 ABG pCO2 48.2 mm Hg 07/27/19 05:16 ABG pO2 63.4 mm Hg (80.0-90.0) L 07/27/19 05:16 ABG O2 Saturation 92.7 % (95.0-99.0) L 07/27/19 05:16 PT/INR, D-dimer PT 16.0 Sec. (12.2-14.9) H 07/03/19 22:20 INR 1.26 (0.87-1.13) H 07/03/19 22:20 D-Dimer 1142.18 ng/mlDDU (0-234) H 07/08/19 00:45 Abnormal lab findings: Abnormal Labs 07/03/19 07/03/19 07/03/19 19:57 21:10 21:13 WBC RBC Hgb Hct MCV MCH MCHC RDW Plt Count Lymph % (Auto) [place] % (Auto) Lymph # [place] # Baso # Seg Neutrophils % Seg Neuts % (Manual) Lymphocytes % (Manual) Monocytes % (Manual) Nucleated RBC % Seg Neutrophils # Seg Neutrophils # Man Lymphocytes # (Manual) Monocytes # (Manual) PT INR D-Dimer ABG pH 7.238 L ABG pO2 210.8 H ABG HCO3 15.4 L ABG O2 Saturation 99.2 H ABG Base Excess -11.1 L ABG Hemoglobin 8.0 L Oxyhemoglobin Sodium 124 L Potassium Chloride 92.9 L Carbon Dioxide 10 L BUN 23 H Creatinine 0.5 L Glucose 118 H POC Glucose Lactic Acid Calcium 7.0 L Magnesium Iron TIBC Ferritin AST 70 H ALT 88 H Lactate Dehydrogenase Troponin T 0.032 H C-Reactive Protein Total Protein 5.0 L Albumin 1.8 L Prealbumin Cholesterol 47 L LDL Cholesterol Direct 25 L HDL Cholesterol 20 L Urine WBC (Auto) 12.0 H Vancomycin Trough Coronavirus (PCR) Crossmatch 07/03/19 07/03/19 07/03/19 22:20 22:20 22:20 WBC 30.5 H RBC 2.96 L Hgb 7.7 L Hct 23.9 L MCV 81 L MCH 26 L MCHC RDW 18.6 H Plt Count 459 H Lymph % (Auto) [place] % (Auto) Lymph # [place] # Baso # Seg Neutrophils % Seg Neuts % (Manual) 93.0 H Lymphocytes % (Manual) 0.5 L Monocytes % (Manual) Nucleated RBC % Seg Neutrophils # Seg Neutrophils # Man 28.4 H Lymphocytes # (Manual) 0.2 L Monocytes # (Manual) PT 16.0 H INR 1.26 H D-Dimer ABG pH ABG pO2 ABG HCO3 ABG O2 Saturation ABG Base Excess ABG Hemoglobin Oxyhemoglobin Sodium Potassium Chloride Carbon Dioxide BUN Creatinine Glucose POC Glucose Lactic Acid 6.90 H* Calcium Magnesium Iron TIBC Ferritin AST ALT Lactate Dehydrogenase Troponin T C-Reactive Protein Total Protein Albumin Prealbumin Cholesterol LDL Cholesterol Direct HDL Cholesterol Urine WBC (Auto) Vancomycin Trough Coronavirus (PCR) Crossmatch 07/03/19 07/04/19 07/04/19 23:58 05:15 07:05 WBC 17.1 H RBC 3.22 L Hgb 8.3 L Hct 25.4 L MCV 79 L MCH 26 L MCHC RDW 18.6 H Plt Count Lymph % (Auto) [place] % (Auto) Lymph # [place] # Baso # Seg Neutrophils % Seg Neuts % (Manual) 74.0 H Lymphocytes % (Manual) 0 L Monocytes % (Manual) Nucleated RBC % Seg Neutrophils # Seg Neutrophils # Man 12.7 H Lymphocytes # (Manual) 0.0 L Monocytes # (Manual) PT INR D-Dimer ABG pH 7.310 L ABG pO2 73.2 L ABG HCO3 17.8 L ABG O2 Saturation 93.8 L ABG Base Excess -7.7 L ABG Hemoglobin 9.6 L Oxyhemoglobin 92.3 L Sodium Potassium Chloride Carbon Dioxide BUN Creatinine Glucose POC Glucose Lactic Acid 7.10 H* Calcium Magnesium Iron TIBC Ferritin AST ALT Lactate Dehydrogenase Troponin T C-Reactive Protein Total Protein Albumin Prealbumin Cholesterol LDL Cholesterol Direct HDL Cholesterol Urine WBC (Auto) Vancomycin Trough Coronavirus (PCR) Crossmatch 07/04/19 07/04/19 07/04/19 07:05 07:05 07:05 WBC RBC Hgb Hct MCV MCH MCHC RDW Plt Count Lymph % (Auto) [place] % (Auto) Lymph # [place] # Baso # Seg Neutrophils % Seg Neuts % (Manual) Lymphocytes % (Manual) Monocytes % (Manual) Nucleated RBC % Seg Neutrophils # Seg Neutrophils # Man Lymphocytes # (Manual) Monocytes # (Manual) PT INR D-Dimer ABG pH ABG pO2 ABG HCO3 ABG O2 Saturation ABG Base Excess ABG Hemoglobin Oxyhemoglobin Sodium 120 L Potassium 5.1 H Chloride 90.0 L Carbon Dioxide 14 L BUN 26 H Creatinine 0.5 L Glucose POC Glucose Lactic Acid 3.30 H* Calcium 8.0 L Magnesium Iron 9 L TIBC 97 L Ferritin AST 73 H ALT 91 H Lactate Dehydrogenase Troponin T C-Reactive Protein Total Protein 5.5 L Albumin 2.0 L Prealbumin Cholesterol LDL Cholesterol Direct HDL Cholesterol Urine WBC (Auto) Vancomycin Trough Coronavirus (PCR) Crossmatch 07/04/19 07/04/19 07/04/19 09:39 09:39 09:39 WBC RBC Hgb Hct MCV MCH MCHC RDW Plt Count Lymph % (Auto) [place] % (Auto) Lymph # [place] # Baso # Seg Neutrophils % Seg Neuts % (Manual) Lymphocytes % (Manual) Monocytes % (Manual) Nucleated RBC % Seg Neutrophils # Seg Neutrophils # Man Lymphocytes # (Manual) Monocytes # (Manual) PT INR D-Dimer 1419.14 H ABG pH ABG pO2 ABG HCO3 ABG O2 Saturation ABG Base Excess ABG Hemoglobin Oxyhemoglobin Sodium Potassium Chloride Carbon Dioxide BUN Creatinine Glucose POC Glucose Lactic Acid Calcium Magnesium Iron TIBC Ferritin 1719.0 H AST ALT Lactate Dehydrogenase 234 H Troponin T C-Reactive Protein 15.50 H Total Protein Albumin Prealbumin Cholesterol LDL Cholesterol Direct HDL Cholesterol Urine WBC (Auto) Vancomycin Trough Coronavirus (PCR) Crossmatch 07/04/19 07/04/19 07/04/19 10:09 18:08 18:28 WBC RBC Hgb Hct MCV MCH MCHC RDW Plt Count Lymph % (Auto) [place] % (Auto) Lymph # [place] # Baso # Seg Neutrophils % Seg Neuts % (Manual) Lymphocytes % (Manual) Monocytes % (Manual) Nucleated RBC % Seg Neutrophils # Seg Neutrophils # Man Lymphocytes # (Manual) Monocytes # (Manual) PT INR D-Dimer ABG pH ABG pO2 ABG HCO3 ABG O2 Saturation ABG Base Excess ABG Hemoglobin Oxyhemoglobin Sodium 117 L* Potassium 5.6 H Chloride 90.3 L Carbon Dioxide 16 L BUN 28 H Creatinine 0.5 L Glucose 58 L POC Glucose 65 L Lactic Acid Calcium 8.2 L Magnesium Iron TIBC Ferritin AST ALT Lactate Dehydrogenase Troponin T C-Reactive Protein Total Protein Albumin Prealbumin Cholesterol LDL Cholesterol Direct HDL Cholesterol Urine WBC (Auto) Vancomycin Trough Coronavirus (PCR) Positive A Crossmatch 07/04/19 07/04/19 07/04/19 23:45 Unknown Unknown WBC RBC Hgb Hct MCV MCH MCHC RDW Plt Count Lymph % (Auto) [place] % (Auto) Lymph # [place] # Baso # Seg Neutrophils % Seg Neuts % (Manual) Lymphocytes % (Manual) Monocytes % (Manual) Nucleated RBC % Seg Neutrophils # Seg Neutrophils # Man Lymphocytes # (Manual) Monocytes # (Manual) PT INR D-Dimer 759.77 H ABG pH ABG pO2 ABG HCO3 ABG O2 Saturation ABG Base Excess ABG Hemoglobin Oxyhemoglobin Sodium 122 L Potassium Chloride 93.0 L Carbon Dioxide 19 L BUN 27 H Creatinine 0.5 L Glucose POC Glucose Lactic Acid Calcium 8.3 L Magnesium Iron TIBC Ferritin 1301.0 H AST ALT Lactate Dehydrogenase Troponin T C-Reactive Protein Total Protein Albumin Prealbumin Cholesterol LDL Cholesterol Direct HDL Cholesterol Urine WBC (Auto) Vancomycin Trough Coronavirus (PCR) Crossmatch 07/04/19 07/05/19 07/05/19 Unknown 03:20 04:00 WBC RBC Hgb Hct MCV MCH MCHC RDW Plt Count Lymph % (Auto) [place] % (Auto) Lymph # [place] # Baso # Seg Neutrophils % Seg Neuts % (Manual) Lymphocytes % (Manual) Monocytes % (Manual) Nucleated RBC % Seg Neutrophils # Seg Neutrophils # Man Lymphocytes # (Manual) Monocytes # (Manual) PT INR D-Dimer ABG pH ABG pO2 60.6 L ABG HCO3 ABG O2 Saturation 93.5 L ABG Base Excess -2.4 L ABG Hemoglobin 6.9 L Oxyhemoglobin 92.0 L Sodium 125 L Potassium Chloride 92.6 L Carbon Dioxide 19 L BUN 24 H Creatinine 0.6 L Glucose POC Glucose Lactic Acid Calcium 8.2 L Magnesium 1.40 L Iron TIBC Ferritin AST ALT Lactate Dehydrogenase 242 H Troponin T C-Reactive Protein 16.70 H Total Protein Albumin Prealbumin Cholesterol LDL Cholesterol Direct HDL Cholesterol Urine WBC (Auto) Vancomycin Trough Coronavirus (PCR) Crossmatch 07/05/19 07/05/19 07/05/19 10:11 16:15 17:54 WBC 46.4 H* RBC 2.77 L Hgb 7.2 L Hct 21.9 L MCV 79 L MCH 26 L MCHC RDW 19.0 H Plt Count Lymph % (Auto) [place] % (Auto) Lymph # [place] # Baso # Seg Neutrophils % Seg Neuts % (Manual) 82.0 H Lymphocytes % (Manual) 1.0 L Monocytes % (Manual) Nucleated RBC % Seg Neutrophils # Seg Neutrophils # Man 38.0 H Lymphocytes # (Manual) 0.5 L Monocytes # (Manual) PT INR D-Dimer ABG pH ABG pO2 ABG HCO3 ABG O2 Saturation ABG Base Excess ABG Hemoglobin Oxyhemoglobin Sodium Potassium Chloride Carbon Dioxide BUN Creatinine Glucose POC Glucose 69 L Lactic Acid Calcium Magnesium Iron TIBC Ferritin AST ALT Lactate Dehydrogenase Troponin T C-Reactive Protein Total Protein Albumin Prealbumin Cholesterol LDL Cholesterol Direct HDL Cholesterol Urine WBC (Auto) Vancomycin Trough 23.2 H Coronavirus (PCR) Crossmatch 07/05/19 07/06/19 07/06/19 19:58 00:27 00:27 WBC RBC Hgb Hct MCV MCH MCHC RDW Plt Count Lymph % (Auto) [place] % (Auto) Lymph # [place] # Baso # Seg Neutrophils % Seg Neuts % (Manual) Lymphocytes % (Manual) Monocytes % (Manual) Nucleated RBC % Seg Neutrophils # Seg Neutrophils # Man Lymphocytes # (Manual) Monocytes # (Manual) PT INR D-Dimer 1333.22 H ABG pH ABG pO2 ABG HCO3 ABG O2 Saturation ABG Base Excess ABG Hemoglobin Oxyhemoglobin Sodium 127 L Potassium Chloride Carbon Dioxide BUN Creatinine Glucose POC Glucose Lactic Acid Calcium Magnesium Iron TIBC Ferritin 977.1 H AST ALT Lactate Dehydrogenase Troponin T C-Reactive Protein Total Protein Albumin Prealbumin Cholesterol LDL Cholesterol Direct HDL Cholesterol Urine WBC (Auto) Vancomycin Trough Coronavirus (PCR) Crossmatch 07/06/19 07/06/19 07/06/19 00:27 02:00 02:56 WBC RBC Hgb Hct MCV MCH MCHC RDW Plt Count Lymph % (Auto) [place] % (Auto) Lymph # [place] # Baso # Seg Neutrophils % Seg Neuts % (Manual) Lymphocytes % (Manual) Monocytes % (Manual) Nucleated RBC % Seg Neutrophils # Seg Neutrophils # Man Lymphocytes # (Manual) Monocytes # (Manual) PT INR D-Dimer ABG pH ABG pO2 70.3 L ABG HCO3 ABG O2 Saturation 94.8 L ABG Base Excess ABG Hemoglobin 8.0 L Oxyhemoglobin 93.2 L Sodium Potassium Chloride Carbon Dioxide BUN Creatinine Glucose POC Glucose 117 H Lactic Acid Calcium Magnesium Iron TIBC Ferritin AST ALT Lactate Dehydrogenase 236 H Troponin T C-Reactive Protein 22.90 H Total Protein Albumin Prealbumin Cholesterol LDL Cholesterol Direct HDL Cholesterol Urine WBC (Auto) Vancomycin Trough Coronavirus (PCR) Crossmatch 07/06/19 07/06/19 07/06/19 03:49 03:49 07:40 WBC 38.8 H RBC 2.51 L Hgb 6.7 L Hct 19.9 L* MCV 79 L MCH 27 L MCHC RDW 19.2 H Plt Count Lymph % (Auto) [place] % (Auto) Lymph # [place] # Baso # Seg Neutrophils % Seg Neuts % (Manual) 90.5 H Lymphocytes % (Manual) 1.0 L Monocytes % (Manual) Nucleated RBC % Seg Neutrophils # Seg Neutrophils # Man 35.1 H Lymphocytes # (Manual) 0.4 L Monocytes # (Manual) PT INR D-Dimer ABG pH ABG pO2 ABG HCO3 ABG O2 Saturation ABG Base Excess ABG Hemoglobin Oxyhemoglobin Sodium 131 L Potassium Chloride 96.9 L Carbon Dioxide 18 L BUN 23 H Creatinine 0.5 L Glucose POC Glucose Lactic Acid Calcium 8.0 L Magnesium Iron TIBC Ferritin AST ALT Lactate Dehydrogenase Troponin T C-Reactive Protein Total Protein Albumin Prealbumin Cholesterol LDL Cholesterol Direct HDL Cholesterol Urine WBC (Auto) Vancomycin Trough Coronavirus (PCR) Crossmatch See Detail 07/06/19 07/06/19 07/06/19 12:38 14:39 20:00 WBC RBC Hgb Hct MCV MCH MCHC RDW Plt Count Lymph % (Auto) [place] % (Auto) Lymph # [place] # Baso # Seg Neutrophils % Seg Neuts % (Manual) Lymphocytes % (Manual) Monocytes % (Manual) Nucleated RBC % Seg Neutrophils # Seg Neutrophils # Man Lymphocytes # (Manual) Monocytes # (Manual) PT INR D-Dimer ABG pH ABG pO2 ABG HCO3 ABG O2 Saturation ABG Base Excess ABG Hemoglobin Oxyhemoglobin Sodium Potassium Chloride Carbon Dioxide BUN Creatinine Glucose POC Glucose 112 H 111 H 140 H Lactic Acid Calcium Magnesium Iron TIBC Ferritin AST ALT Lactate Dehydrogenase Troponin T C-Reactive Protein Total Protein Albumin Prealbumin Cholesterol LDL Cholesterol Direct HDL Cholesterol Urine WBC (Auto) Vancomycin Trough Coronavirus (PCR) Crossmatch 07/06/19 07/06/19 07/07/19 22:43 22:56 02:20 WBC RBC Hgb 7.9 L Hct 23.1 L MCV MCH MCHC RDW Plt Count Lymph % (Auto) [place] % (Auto) Lymph # [place] # Baso # Seg Neutrophils % Seg Neuts % (Manual) Lymphocytes % (Manual) Monocytes % (Manual) Nucleated RBC % Seg Neutrophils # Seg Neutrophils # Man Lymphocytes # (Manual) Monocytes # (Manual) PT INR D-Dimer ABG pH ABG pO2 ABG HCO3 ABG O2 Saturation ABG Base Excess ABG Hemoglobin Oxyhemoglobin Sodium Potassium Chloride Carbon Dioxide BUN Creatinine Glucose POC Glucose 122 H 149 H Lactic Acid Calcium Magnesium Iron TIBC Ferritin AST ALT Lactate Dehydrogenase Troponin T C-Reactive Protein Total Protein Albumin Prealbumin Cholesterol LDL Cholesterol Direct HDL Cholesterol Urine WBC (Auto) Vancomycin Trough Coronavirus (PCR) Crossmatch 07/07/19 07/07/19 07/07/19 04:35 05:27 05:34 WBC 23.1 H RBC 3.00 L Hgb 8.1 L Hct 24.2 L MCV 81 L MCH 27 L MCHC RDW 20.6 H Plt Count Lymph % (Auto) [place] % (Auto) Lymph # [place] # Baso # Seg Neutrophils % Seg Neuts % (Manual) 90.0 H Lymphocytes % (Manual) 2.0 L Monocytes % (Manual) Nucleated RBC % Seg Neutrophils # Seg Neutrophils # Man 20.8 H Lymphocytes # (Manual) 0.5 L Monocytes # (Manual) PT INR D-Dimer ABG pH ABG pO2 65.8 L ABG HCO3 ABG O2 Saturation 92.2 L ABG Base Excess ABG Hemoglobin 8.3 L Oxyhemoglobin 90.6 L Sodium Potassium Chloride Carbon Dioxide BUN Creatinine Glucose POC Glucose 132 H Lactic Acid Calcium Magnesium Iron TIBC Ferritin AST ALT Lactate Dehydrogenase Troponin T C-Reactive Protein Total Protein Albumin Prealbumin Cholesterol LDL Cholesterol Direct HDL Cholesterol Urine WBC (Auto) Vancomycin Trough Coronavirus (PCR) Crossmatch 07/07/19 07/07/19 07/07/19 05:34 11:50 15:58 WBC RBC Hgb 8.1 L Hct 24.2 L MCV MCH MCHC RDW Plt Count Lymph % (Auto) [place] % (Auto) Lymph # [place] # Baso # Seg Neutrophils % Seg Neuts % (Manual) Lymphocytes % (Manual) Monocytes % (Manual) Nucleated RBC % Seg Neutrophils # Seg Neutrophils # Man Lymphocytes # (Manual) Monocytes # (Manual) PT INR D-Dimer ABG pH ABG pO2 ABG HCO3 ABG O2 Saturation ABG Base Excess ABG Hemoglobin Oxyhemoglobin Sodium 135 L Potassium 3.3 L Chloride Carbon Dioxide 20 L BUN 27 H Creatinine 0.6 L Glucose 121 H POC Glucose 123 H Lactic Acid Calcium 8.0 L Magnesium Iron TIBC Ferritin AST ALT Lactate Dehydrogenase Troponin T C-Reactive Protein Total Protein Albumin Prealbumin Cholesterol LDL Cholesterol Direct HDL Cholesterol Urine WBC (Auto) Vancomycin Trough Coronavirus (PCR) Crossmatch 07/07/19 07/07/19 07/07/19 17:42 22:00 23:53 WBC RBC Hgb 8.0 L Hct 23.4 L MCV MCH MCHC RDW Plt Count Lymph % (Auto) [place] % (Auto) Lymph # [place] # Baso # Seg Neutrophils % Seg Neuts % (Manual) Lymphocytes % (Manual) Monocytes % (Manual) Nucleated RBC % Seg Neutrophils # Seg Neutrophils # Man Lymphocytes # (Manual) Monocytes # (Manual) PT INR D-Dimer ABG pH ABG pO2 ABG HCO3 ABG O2 Saturation ABG Base Excess ABG Hemoglobin Oxyhemoglobin Sodium Potassium Chloride Carbon Dioxide BUN Creatinine Glucose POC Glucose 107 H 117 H Lactic Acid Calcium Magnesium Iron TIBC Ferritin AST ALT Lactate Dehydrogenase Troponin T C-Reactive Protein Total Protein Albumin Prealbumin Cholesterol LDL Cholesterol Direct HDL Cholesterol Urine WBC (Auto) Vancomycin Trough Coronavirus (PCR) Crossmatch 07/08/19 07/08/19 07/08/19 00:45 00:45 00:45 WBC RBC Hgb Hct MCV MCH MCHC RDW Plt Count Lymph % (Auto) [place] % (Auto) Lymph # [place] # Baso # Seg Neutrophils % Seg Neuts % (Manual) Lymphocytes % (Manual) Monocytes % (Manual) Nucleated RBC % Seg Neutrophils # Seg Neutrophils # Man Lymphocytes # (Manual) Monocytes # (Manual) PT INR D-Dimer 1142.18 H ABG pH ABG pO2 ABG HCO3 ABG O2 Saturation ABG Base Excess ABG Hemoglobin Oxyhemoglobin Sodium Potassium Chloride Carbon Dioxide BUN Creatinine Glucose POC Glucose Lactic Acid Calcium Magnesium Iron TIBC Ferritin 839.0 H AST ALT Lactate Dehydrogenase 253 H Troponin T C-Reactive Protein 18.90 H Total Protein Albumin Prealbumin Cholesterol LDL Cholesterol Direct HDL Cholesterol Urine WBC (Auto) Vancomycin Trough Coronavirus (PCR) Crossmatch 07/08/19 07/08/19 07/08/19 04:30 05:11 12:02 WBC RBC Hgb Hct MCV MCH MCHC RDW Plt Count Lymph % (Auto) [place] % (Auto) Lymph # [place] # Baso # Seg Neutrophils % Seg Neuts % (Manual) Lymphocytes % (Manual) Monocytes % (Manual) Nucleated RBC % Seg Neutrophils # Seg Neutrophils # Man Lymphocytes # (Manual) Monocytes # (Manual) PT INR D-Dimer ABG pH ABG pO2 66.0 L ABG HCO3 ABG O2 Saturation 92.3 L ABG Base Excess ABG Hemoglobin 7.7 L Oxyhemoglobin 90.7 L Sodium Potassium Chloride Carbon Dioxide BUN Creatinine Glucose POC Glucose 108 H 153 H Lactic Acid Calcium Magnesium Iron TIBC Ferritin AST ALT Lactate Dehydrogenase Troponin T C-Reactive Protein Total Protein Albumin Prealbumin Cholesterol LDL Cholesterol Direct HDL Cholesterol Urine WBC (Auto) Vancomycin Trough Coronavirus (PCR) Crossmatch 07/08/19 07/08/19 07/08/19 16:15 18:22 23:35 WBC RBC Hgb Hct MCV MCH MCHC RDW Plt Count Lymph % (Auto) [place] % (Auto) Lymph # [place] # Baso # Seg Neutrophils % Seg Neuts % (Manual) Lymphocytes % (Manual) Monocytes % (Manual) Nucleated RBC % Seg Neutrophils # Seg Neutrophils # Man Lymphocytes # (Manual) Monocytes # (Manual) PT INR D-Dimer ABG pH ABG pO2 ABG HCO3 ABG O2 Saturation ABG Base Excess ABG Hemoglobin Oxyhemoglobin Sodium 134 L Potassium 3.3 L Chloride Carbon Dioxide 21 L BUN 27 H Creatinine 0.6 L Glucose 146 H POC Glucose 134 H 133 H Lactic Acid Calcium Magnesium Iron TIBC Ferritin AST ALT Lactate Dehydrogenase Troponin T C-Reactive Protein Total Protein Albumin Prealbumin Cholesterol LDL Cholesterol Direct HDL Cholesterol Urine WBC (Auto) Vancomycin Trough Coronavirus (PCR) Crossmatch 07/09/19 07/09/19 07/09/19 04:30 04:30 05:00 WBC 18.9 H RBC 2.77 L Hgb 7.4 L Hct 22.8 L MCV 82 L MCH 27 L MCHC RDW 20.9 H Plt Count 130 L Lymph % (Auto) [place] % (Auto) Lymph # [place] # Baso # Seg Neutrophils % Seg Neuts % (Manual) 84.0 H Lymphocytes % (Manual) 0 L Monocytes % (Manual) Nucleated RBC % Seg Neutrophils # Seg Neutrophils # Man 15.9 H Lymphocytes # (Manual) 0.0 L Monocytes # (Manual) PT INR D-Dimer ABG pH ABG pO2 ABG HCO3 ABG O2 Saturation ABG Base Excess ABG Hemoglobin Oxyhemoglobin Sodium Potassium 3.1 L Chloride Carbon Dioxide BUN 26 H Creatinine 0.5 L Glucose 125 H POC Glucose 155 H Lactic Acid Calcium Magnesium Iron TIBC Ferritin AST ALT Lactate Dehydrogenase Troponin T C-Reactive Protein Total Protein Albumin Prealbumin Cholesterol LDL Cholesterol Direct HDL Cholesterol Urine WBC (Auto) Vancomycin Trough Coronavirus (PCR) Crossmatch 07/09/19 07/09/19 07/09/19 05:55 12:22 17:50 WBC RBC Hgb Hct MCV MCH MCHC RDW Plt Count Lymph % (Auto) [place] % (Auto) Lymph # [place] # Baso # Seg Neutrophils % Seg Neuts % (Manual) Lymphocytes % (Manual) Monocytes % (Manual) Nucleated RBC % Seg Neutrophils # Seg Neutrophils # Man Lymphocytes # (Manual) Monocytes # (Manual) PT INR D-Dimer ABG pH ABG pO2 62.8 L ABG HCO3 ABG O2 Saturation ABG Base Excess ABG Hemoglobin 6.1 L Oxyhemoglobin 93.9 L Sodium Potassium Chloride Carbon Dioxide BUN Creatinine Glucose POC Glucose 115 H 133 H Lactic Acid Calcium Magnesium Iron TIBC Ferritin AST ALT Lactate Dehydrogenase Troponin T C-Reactive Protein Total Protein Albumin Prealbumin Cholesterol LDL Cholesterol Direct HDL Cholesterol Urine WBC (Auto) Vancomycin Trough Coronavirus (PCR) Crossmatch 07/10/19 07/10/19 07/10/19 00:38 04:00 04:00 WBC RBC Hgb Hct MCV MCH MCHC RDW Plt Count Lymph % (Auto) [place] % (Auto) Lymph # [place] # Baso # Seg Neutrophils % Seg Neuts % (Manual) Lymphocytes % (Manual) Monocytes % (Manual) Nucleated RBC % Seg Neutrophils # Seg Neutrophils # Man Lymphocytes # (Manual) Monocytes # (Manual) PT INR D-Dimer ABG pH ABG pO2 ABG HCO3 ABG O2 Saturation ABG Base Excess ABG Hemoglobin Oxyhemoglobin Sodium Potassium Chloride 107.9 H Carbon Dioxide BUN 26 H Creatinine 0.4 L Glucose 137 H POC Glucose 122 H Lactic Acid Calcium Magnesium 1.50 L Iron TIBC Ferritin AST ALT Lactate Dehydrogenase 277 H Troponin T C-Reactive Protein 15.10 H Total Protein Albumin Prealbumin Cholesterol LDL Cholesterol Direct HDL Cholesterol Urine WBC (Auto) Vancomycin Trough Coronavirus (PCR) Crossmatch 07/10/19 07/10/19 07/10/19 04:07 05:21 17:25 WBC RBC Hgb Hct MCV MCH MCHC RDW Plt Count Lymph % (Auto) [place] % (Auto) Lymph # [place] # Baso # Seg Neutrophils % Seg Neuts % (Manual) Lymphocytes % (Manual) Monocytes % (Manual) Nucleated RBC % Seg Neutrophils # Seg Neutrophils # Man Lymphocytes # (Manual) Monocytes # (Manual) PT INR D-Dimer ABG pH ABG pO2 65.6 L ABG HCO3 26.3 H ABG O2 Saturation ABG Base Excess ABG Hemoglobin 6.7 L Oxyhemoglobin Sodium Potassium Chloride Carbon Dioxide BUN Creatinine Glucose POC Glucose 144 H 113 H Lactic Acid Calcium Magnesium Iron TIBC Ferritin AST ALT Lactate Dehydrogenase Troponin T C-Reactive Protein Total Protein Albumin Prealbumin Cholesterol LDL Cholesterol Direct HDL Cholesterol Urine WBC (Auto) Vancomycin Trough Coronavirus (PCR) Crossmatch 07/11/19 07/11/19 07/11/19 00:07 05:14 05:25 WBC RBC Hgb Hct MCV MCH MCHC RDW Plt Count Lymph % (Auto) [place] % (Auto) Lymph # [place] # Baso # Seg Neutrophils % Seg Neuts % (Manual) Lymphocytes % (Manual) Monocytes % (Manual) Nucleated RBC % Seg Neutrophils # Seg Neutrophils # Man Lymphocytes # (Manual) Monocytes # (Manual) PT INR D-Dimer ABG pH ABG pO2 ABG HCO3 ABG O2 Saturation ABG Base Excess ABG Hemoglobin 5.8 L Oxyhemoglobin Sodium Potassium Chloride 108.0 H Carbon Dioxide BUN 26 H Creatinine 0.4 L Glucose 110 H POC Glucose 121 H Lactic Acid Calcium Magnesium Iron TIBC Ferritin AST ALT Lactate Dehydrogenase Troponin T C-Reactive Protein Total Protein Albumin Prealbumin Cholesterol LDL Cholesterol Direct HDL Cholesterol Urine WBC (Auto) Vancomycin Trough Coronavirus (PCR) Crossmatch 07/11/19 07/11/19 07/11/19 12:27 18:00 23:42 WBC RBC Hgb Hct MCV MCH MCHC RDW Plt Count Lymph % (Auto) [place] % (Auto) Lymph # [place] # Baso # Seg Neutrophils % Seg Neuts % (Manual) Lymphocytes % (Manual) Monocytes % (Manual) Nucleated RBC % Seg Neutrophils # Seg Neutrophils # Man Lymphocytes # (Manual) Monocytes # (Manual) PT INR D-Dimer ABG pH ABG pO2 ABG HCO3 ABG O2 Saturation ABG Base Excess ABG Hemoglobin Oxyhemoglobin Sodium Potassium Chloride Carbon Dioxide BUN Creatinine Glucose POC Glucose 158 H 141 H 142 H Lactic Acid Calcium Magnesium Iron TIBC Ferritin AST ALT Lactate Dehydrogenase Troponin T C-Reactive Protein Total Protein Albumin Prealbumin Cholesterol LDL Cholesterol Direct HDL Cholesterol Urine WBC (Auto) Vancomycin Trough Coronavirus (PCR) Crossmatch 07/12/19 07/12/19 07/12/19 04:46 04:46 05:23 WBC 23.6 H RBC 2.51 L Hgb 6.7 L Hct 20.8 L MCV 83 L MCH 27 L MCHC RDW 20.3 H Plt Count Lymph % (Auto) [place] % (Auto) Lymph # [place] # Baso # Seg Neutrophils % Seg Neuts % (Manual) 94.0 H Lymphocytes % (Manual) 4.0 L Monocytes % (Manual) Nucleated RBC % Seg Neutrophils # Seg Neutrophils # Man 22.2 H Lymphocytes # (Manual) 0.9 L Monocytes # (Manual) PT INR D-Dimer ABG pH ABG pO2 ABG HCO3 ABG O2 Saturation ABG Base Excess ABG Hemoglobin Oxyhemoglobin Sodium Potassium Chloride 107.1 H Carbon Dioxide BUN 25 H Creatinine 0.4 L Glucose 122 H POC Glucose 118 H Lactic Acid Calcium Magnesium Iron TIBC Ferritin AST ALT Lactate Dehydrogenase Troponin T C-Reactive Protein Total Protein Albumin Prealbumin Cholesterol LDL Cholesterol Direct HDL Cholesterol Urine WBC (Auto) Vancomycin Trough Coronavirus (PCR) Crossmatch 07/12/19 07/12/19 07/12/19 08:49 11:36 18:15 WBC RBC Hgb Hct MCV MCH MCHC RDW Plt Count Lymph % (Auto) [place] % (Auto) Lymph # [place] # Baso # Seg Neutrophils % Seg Neuts % (Manual) Lymphocytes % (Manual) Monocytes % (Manual) Nucleated RBC % Seg Neutrophils # Seg Neutrophils # Man Lymphocytes # (Manual) Monocytes # (Manual) PT INR D-Dimer ABG pH ABG pO2 ABG HCO3 ABG O2 Saturation ABG Base Excess ABG Hemoglobin Oxyhemoglobin Sodium Potassium Chloride Carbon Dioxide BUN Creatinine Glucose POC Glucose 124 H 110 H Lactic Acid Calcium Magnesium Iron TIBC Ferritin AST ALT Lactate Dehydrogenase Troponin T C-Reactive Protein Total Protein Albumin Prealbumin Cholesterol LDL Cholesterol Direct HDL Cholesterol Urine WBC (Auto) Vancomycin Trough Coronavirus (PCR) Crossmatch See Detail 07/12/19 07/13/19 07/13/19 23:16 05:26 06:50 WBC 23.9 H RBC 2.58 L Hgb 6.9 L Hct 21.5 L MCV 83 L MCH 27 L MCHC RDW 19.0 H Plt Count Lymph % (Auto) [place] % (Auto) Lymph # [place] # Baso # Seg Neutrophils % Seg Neuts % (Manual) 96.0 H Lymphocytes % (Manual) 3.0 L Monocytes % (Manual) Nucleated RBC % Seg Neutrophils # Seg Neutrophils # Man 22.9 H Lymphocytes # (Manual) 0.7 L Monocytes # (Manual) PT INR D-Dimer ABG pH ABG pO2 ABG HCO3 ABG O2 Saturation ABG Base Excess ABG Hemoglobin Oxyhemoglobin Sodium Potassium Chloride Carbon Dioxide BUN Creatinine Glucose POC Glucose 108 H 126 H Lactic Acid Calcium Magnesium Iron TIBC Ferritin AST ALT Lactate Dehydrogenase Troponin T C-Reactive Protein Total Protein Albumin Prealbumin Cholesterol LDL Cholesterol Direct HDL Cholesterol Urine WBC (Auto) Vancomycin Trough Coronavirus (PCR) Crossmatch 07/13/19 07/13/19 07/13/19 06:50 12:38 18:05 WBC RBC Hgb Hct MCV MCH MCHC RDW Plt Count Lymph % (Auto) [place] % (Auto) Lymph # [place] # Baso # Seg Neutrophils % Seg Neuts % (Manual) Lymphocytes % (Manual) Monocytes % (Manual) Nucleated RBC % Seg Neutrophils # Seg Neutrophils # Man Lymphocytes # (Manual) Monocytes # (Manual) PT INR D-Dimer ABG pH ABG pO2 ABG HCO3 ABG O2 Saturation ABG Base Excess ABG Hemoglobin Oxyhemoglobin Sodium Potassium Chloride Carbon Dioxide BUN 33 H Creatinine 0.5 L Glucose 136 H POC Glucose 164 H 145 H Lactic Acid Calcium Magnesium Iron TIBC Ferritin AST ALT Lactate Dehydrogenase Troponin T C-Reactive Protein Total Protein Albumin Prealbumin Cholesterol LDL Cholesterol Direct HDL Cholesterol Urine WBC (Auto) Vancomycin Trough Coronavirus (PCR) Crossmatch 07/13/19 07/14/19 07/14/19 18:30 00:21 04:40 WBC 22.9 H RBC 2.45 L Hgb 6.6 L Hct 21.1 L MCV MCH 27 L MCHC 31 L RDW 19.2 H Plt Count Lymph % (Auto) [place] % (Auto) Lymph # [place] # Baso # Seg Neutrophils % Seg Neuts % (Manual) 91.0 H Lymphocytes % (Manual) 7.0 L Monocytes % (Manual) Nucleated RBC % Seg Neutrophils # Seg Neutrophils # Man 20.8 H Lymphocytes # (Manual) Monocytes # (Manual) PT INR D-Dimer ABG pH ABG pO2 58.1 L ABG HCO3 ABG O2 Saturation 88.7 L ABG Base Excess ABG Hemoglobin 7.8 L Oxyhemoglobin 86.8 L Sodium Potassium Chloride Carbon Dioxide BUN Creatinine Glucose POC Glucose 118 H Lactic Acid Calcium Magnesium Iron TIBC Ferritin AST ALT Lactate Dehydrogenase Troponin T C-Reactive Protein Total Protein Albumin Prealbumin Cholesterol LDL Cholesterol Direct HDL Cholesterol Urine WBC (Auto) Vancomycin Trough Coronavirus (PCR) Crossmatch 07/14/19 07/14/19 07/14/19 04:40 05:38 05:45 WBC RBC Hgb Hct MCV MCH MCHC RDW Plt Count Lymph % (Auto) [place] % (Auto) Lymph # [place] # Baso # Seg Neutrophils % Seg Neuts % (Manual) Lymphocytes % (Manual) Monocytes % (Manual) Nucleated RBC % Seg Neutrophils # Seg Neutrophils # Man Lymphocytes # (Manual) Monocytes # (Manual) PT INR D-Dimer ABG pH 7.230 L ABG pO2 72.1 L ABG HCO3 ABG O2 Saturation 89.3 L ABG Base Excess -2.7 L ABG Hemoglobin 6.7 L Oxyhemoglobin 87.7 L Sodium Potassium Chloride 107.4 H Carbon Dioxide BUN 45 H Creatinine Glucose 101 H POC Glucose 154 H Lactic Acid Calcium Magnesium Iron TIBC Ferritin AST ALT Lactate Dehydrogenase Troponin T C-Reactive Protein Total Protein Albumin Prealbumin Cholesterol LDL Cholesterol Direct HDL Cholesterol Urine WBC (Auto) Vancomycin Trough Coronavirus (PCR) Crossmatch 07/14/19 07/14/19 07/14/19 12:25 18:20 19:01 WBC 22.4 H RBC 2.70 L Hgb 7.5 L Hct 23.3 L MCV MCH MCHC RDW 19.5 H Plt Count Lymph % (Auto) [place] % (Auto) Lymph # [place] # Baso # Seg Neutrophils % Seg Neuts % (Manual) Lymphocytes % (Manual) Monocytes % (Manual) Nucleated RBC % Seg Neutrophils # Seg Neutrophils # Man Lymphocytes # (Manual) Monocytes # (Manual) PT INR D-Dimer ABG pH ABG pO2 ABG HCO3 ABG O2 Saturation ABG Base Excess ABG Hemoglobin Oxyhemoglobin Sodium Potassium Chloride Carbon Dioxide BUN Creatinine Glucose POC Glucose 136 H 131 H Lactic Acid Calcium Magnesium Iron TIBC Ferritin AST ALT Lactate Dehydrogenase Troponin T C-Reactive Protein Total Protein Albumin Prealbumin Cholesterol LDL Cholesterol Direct HDL Cholesterol Urine WBC (Auto) Vancomycin Trough Coronavirus (PCR) Crossmatch 07/15/19 07/15/19 07/15/19 00:17 04:35 05:18 WBC 20.6 H RBC 2.41 L Hgb 6.8 L Hct 20.7 L MCV MCH MCHC RDW 20.2 H Plt Count Lymph % (Auto) [place] % (Auto) Lymph # [place] # Baso # Seg Neutrophils % Seg Neuts % (Manual) 92.0 H Lymphocytes % (Manual) 5.0 L Monocytes % (Manual) Nucleated RBC % Seg Neutrophils # Seg Neutrophils # Man 19.0 H Lymphocytes # (Manual) 1.0 L Monocytes # (Manual) PT INR D-Dimer ABG pH 7.342 L ABG pO2 ABG HCO3 ABG O2 Saturation ABG Base Excess -3.1 L ABG Hemoglobin 7.2 L Oxyhemoglobin 94.9 L Sodium Potassium Chloride Carbon Dioxide BUN Creatinine Glucose POC Glucose 116 H Lactic Acid Calcium Magnesium Iron TIBC Ferritin AST ALT Lactate Dehydrogenase Troponin T C-Reactive Protein Total Protein Albumin Prealbumin Cholesterol LDL Cholesterol Direct HDL Cholesterol Urine WBC (Auto) Vancomycin Trough Coronavirus (PCR) Crossmatch 07/15/19 07/15/19 07/15/19 05:18 05:57 11:28 WBC RBC Hgb Hct MCV MCH MCHC RDW Plt Count Lymph % (Auto) [place] % (Auto) Lymph # [place] # Baso # Seg Neutrophils % Seg Neuts % (Manual) Lymphocytes % (Manual) Monocytes % (Manual) Nucleated RBC % Seg Neutrophils # Seg Neutrophils # Man Lymphocytes # (Manual) Monocytes # (Manual) PT INR D-Dimer ABG pH ABG pO2 ABG HCO3 ABG O2 Saturation ABG Base Excess ABG Hemoglobin Oxyhemoglobin Sodium Potassium Chloride Carbon Dioxide 20 L BUN 59 H Creatinine Glucose 140 H POC Glucose 139 H 117 H Lactic Acid Calcium Magnesium Iron TIBC Ferritin AST ALT Lactate Dehydrogenase Troponin T C-Reactive Protein Total Protein Albumin Prealbumin Cholesterol LDL Cholesterol Direct HDL Cholesterol Urine WBC (Auto) Vancomycin Trough Coronavirus (PCR) Crossmatch 07/15/19 07/16/19 07/16/19 18:13 00:06 03:43 WBC RBC Hgb Hct MCV MCH MCHC RDW Plt Count Lymph % (Auto) [place] % (Auto) Lymph # [place] # Baso # Seg Neutrophils % Seg Neuts % (Manual) Lymphocytes % (Manual) Monocytes % (Manual) Nucleated RBC % Seg Neutrophils # Seg Neutrophils # Man Lymphocytes # (Manual) Monocytes # (Manual) PT INR D-Dimer ABG pH 7.344 L ABG pO2 68.6 L ABG HCO3 ABG O2 Saturation ABG Base Excess -3.5 L ABG Hemoglobin 6.1 L Oxyhemoglobin 93.3 L Sodium Potassium Chloride Carbon Dioxide BUN Creatinine Glucose POC Glucose 114 H 119 H Lactic Acid Calcium Magnesium Iron TIBC Ferritin AST ALT Lactate Dehydrogenase Troponin T C-Reactive Protein Total Protein Albumin Prealbumin Cholesterol LDL Cholesterol Direct HDL Cholesterol Urine WBC (Auto) Vancomycin Trough Coronavirus (PCR) Crossmatch 07/16/19 07/16/19 07/16/19 04:41 04:41 12:09 WBC 19.6 H RBC 2.81 L Hgb 7.7 L Hct 24.0 L MCV MCH 27 L MCHC RDW 19.4 H Plt Count 514 H Lymph % (Auto) 6.7 L [place] % (Auto) Lymph # [place] # 1.0 H Baso # Seg Neutrophils % 87.0 H Seg Neuts % (Manual) Lymphocytes % (Manual) Monocytes % (Manual) Nucleated RBC % Seg Neutrophils # 17.0 H Seg Neutrophils # Man Lymphocytes # (Manual) Monocytes # (Manual) PT INR D-Dimer ABG pH ABG pO2 ABG HCO3 ABG O2 Saturation ABG Base Excess ABG Hemoglobin Oxyhemoglobin Sodium Potassium 5.9 H Chloride Carbon Dioxide 21 L BUN 73 H Creatinine 2.0 H Glucose POC Glucose 141 H Lactic Acid Calcium Magnesium Iron TIBC Ferritin AST ALT Lactate Dehydrogenase Troponin T C-Reactive Protein Total Protein Albumin Prealbumin Cholesterol LDL Cholesterol Direct HDL Cholesterol Urine WBC (Auto) Vancomycin Trough Coronavirus (PCR) Crossmatch 07/16/19 07/16/19 07/17/19 16:19 17:45 00:16 WBC RBC Hgb Hct MCV MCH MCHC RDW Plt Count Lymph % (Auto) [place] % (Auto) Lymph # [place] # Baso # Seg Neutrophils % Seg Neuts % (Manual) Lymphocytes % (Manual) Monocytes % (Manual) Nucleated RBC % Seg Neutrophils # Seg Neutrophils # Man Lymphocytes # (Manual) Monocytes # (Manual) PT INR D-Dimer ABG pH ABG pO2 ABG HCO3 ABG O2 Saturation ABG Base Excess ABG Hemoglobin Oxyhemoglobin Sodium Potassium 5.1 H Chloride Carbon Dioxide 20 L BUN 72 H Creatinine 1.7 H Glucose 128 H POC Glucose 181 H 164 H Lactic Acid Calcium Magnesium Iron TIBC Ferritin AST ALT Lactate Dehydrogenase Troponin T C-Reactive Protein Total Protein Albumin Prealbumin Cholesterol LDL Cholesterol Direct HDL Cholesterol Urine WBC (Auto) Vancomycin Trough Coronavirus (PCR) Crossmatch 07/17/19 07/17/19 07/17/19 04:20 04:39 04:39 WBC 16.1 H RBC 2.92 L Hgb 8.0 L Hct 25.5 L MCV MCH MCHC 31 L RDW 19.7 H Plt Count 564 H Lymph % (Auto) 3.6 L [place] % (Auto) 7.4 H Lymph # 0.6 L [place] # 1.2 H Baso # Seg Neutrophils % 87.5 H Seg Neuts % (Manual) Lymphocytes % (Manual) Monocytes % (Manual) Nucleated RBC % Seg Neutrophils # 14.1 H Seg Neutrophils # Man Lymphocytes # (Manual) Monocytes # (Manual) PT INR D-Dimer ABG pH 7.231 L ABG pO2 95.3 H ABG HCO3 ABG O2 Saturation ABG Base Excess -5.0 L ABG Hemoglobin 7.9 L Oxyhemoglobin 94.8 L Sodium Potassium Chloride 107.8 H Carbon Dioxide 21 L BUN 68 H Creatinine Glucose POC Glucose Lactic Acid Calcium Magnesium Iron TIBC Ferritin AST ALT Lactate Dehydrogenase Troponin T C-Reactive Protein Total Protein Albumin Prealbumin Cholesterol LDL Cholesterol Direct HDL Cholesterol Urine WBC (Auto) Vancomycin Trough Coronavirus (PCR) Crossmatch 07/17/19 07/17/19 07/17/19 05:28 12:11 18:48 WBC RBC Hgb Hct MCV MCH MCHC RDW Plt Count Lymph % (Auto) [place] % (Auto) Lymph # [place] # Baso # Seg Neutrophils % Seg Neuts % (Manual) Lymphocytes % (Manual) Monocytes % (Manual) Nucleated RBC % Seg Neutrophils # Seg Neutrophils # Man Lymphocytes # (Manual) Monocytes # (Manual) PT INR D-Dimer ABG pH ABG pO2 ABG HCO3 ABG O2 Saturation ABG Base Excess ABG Hemoglobin Oxyhemoglobin Sodium Potassium Chloride Carbon Dioxide BUN Creatinine Glucose POC Glucose 121 H 125 H 174 H Lactic Acid Calcium Magnesium Iron TIBC Ferritin AST ALT Lactate Dehydrogenase Troponin T C-Reactive Protein Total Protein Albumin Prealbumin Cholesterol LDL Cholesterol Direct HDL Cholesterol Urine WBC (Auto) Vancomycin Trough Coronavirus (PCR) Crossmatch 07/17/19 07/17/19 07/18/19 19:55 23:57 02:30 WBC RBC Hgb Hct MCV MCH MCHC RDW Plt Count Lymph % (Auto) [place] % (Auto) Lymph # [place] # Baso # Seg Neutrophils % Seg Neuts % (Manual) Lymphocytes % (Manual) Monocytes % (Manual) Nucleated RBC % Seg Neutrophils # Seg Neutrophils # Man Lymphocytes # (Manual) Monocytes # (Manual) PT INR D-Dimer ABG pH 7.344 L 7.294 L ABG pO2 78.5 L 119.2 H ABG HCO3 ABG O2 Saturation ABG Base Excess -3.3 L -2.6 L ABG Hemoglobin 8.6 L 8.1 L Oxyhemoglobin 94.8 L Sodium Potassium Chloride Carbon Dioxide BUN Creatinine Glucose POC Glucose 148 H Lactic Acid Calcium Magnesium Iron TIBC Ferritin AST ALT Lactate Dehydrogenase Troponin T C-Reactive Protein Total Protein Albumin Prealbumin Cholesterol LDL Cholesterol Direct HDL Cholesterol Urine WBC (Auto) Vancomycin Trough Coronavirus (PCR) Crossmatch 07/18/19 07/18/19 07/18/19 04:49 05:22 05:22 WBC 15.9 H RBC 3.00 L Hgb 8.1 L Hct 26.0 L MCV MCH 27 L MCHC 31 L RDW 19.4 H Plt Count 733 H Lymph % (Auto) 6.3 L [place] % (Auto) 7.4 H Lymph # 1.0 L [place] # 1.2 H Baso # 0.2 H Seg Neutrophils % 83.8 H Seg Neuts % (Manual) Lymphocytes % (Manual) Monocytes % (Manual) Nucleated RBC % Seg Neutrophils # 13.3 H Seg Neutrophils # Man Lymphocytes # (Manual) Monocytes # (Manual) PT INR D-Dimer ABG pH ABG pO2 ABG HCO3 ABG O2 Saturation ABG Base Excess ABG Hemoglobin Oxyhemoglobin Sodium Potassium Chloride 110.6 H Carbon Dioxide BUN 61 H Creatinine Glucose 109 H POC Glucose 116 H Lactic Acid Calcium Magnesium Iron TIBC Ferritin AST ALT Lactate Dehydrogenase Troponin T C-Reactive Protein Total Protein Albumin Prealbumin Cholesterol LDL Cholesterol Direct HDL Cholesterol Urine WBC (Auto) Vancomycin Trough Coronavirus (PCR) Crossmatch 07/18/19 07/18/19 07/18/19 12:23 18:06 22:20 WBC RBC Hgb Hct MCV MCH MCHC RDW Plt Count Lymph % (Auto) [place] % (Auto) Lymph # [place] # Baso # Seg Neutrophils % Seg Neuts % (Manual) Lymphocytes % (Manual) Monocytes % (Manual) Nucleated RBC % Seg Neutrophils # Seg Neutrophils # Man Lymphocytes # (Manual) Monocytes # (Manual) PT INR D-Dimer ABG pH 7.338 L ABG pO2 135.1 H ABG HCO3 ABG O2 Saturation ABG Base Excess ABG Hemoglobin 9.2 L Oxyhemoglobin Sodium Potassium Chloride Carbon Dioxide BUN Creatinine Glucose POC Glucose 114 H 113 H Lactic Acid Calcium Magnesium Iron TIBC Ferritin AST ALT Lactate Dehydrogenase Troponin T C-Reactive Protein Total Protein Albumin Prealbumin Cholesterol LDL Cholesterol Direct HDL Cholesterol Urine WBC (Auto) Vancomycin Trough Coronavirus (PCR) Crossmatch 07/18/19 07/19/19 07/19/19 23:33 03:45 05:18 WBC RBC Hgb Hct MCV MCH MCHC RDW Plt Count Lymph % (Auto) [place] % (Auto) Lymph # [place] # Baso # Seg Neutrophils % Seg Neuts % (Manual) Lymphocytes % (Manual) Monocytes % (Manual) Nucleated RBC % Seg Neutrophils # Seg Neutrophils # Man Lymphocytes # (Manual) Monocytes # (Manual) PT INR D-Dimer ABG pH 7.342 L ABG pO2 95.0 H ABG HCO3 ABG O2 Saturation ABG Base Excess ABG Hemoglobin 8.5 L Oxyhemoglobin Sodium Potassium Chloride Carbon Dioxide BUN Creatinine Glucose POC Glucose 125 H 111 H Lactic Acid Calcium Magnesium Iron TIBC Ferritin AST ALT Lactate Dehydrogenase Troponin T C-Reactive Protein Total Protein Albumin Prealbumin Cholesterol LDL Cholesterol Direct HDL Cholesterol Urine WBC (Auto) Vancomycin Trough Coronavirus (PCR) Crossmatch 07/19/19 07/19/19 07/19/19 08:45 08:45 11:47 WBC 15.9 H RBC 3.31 L Hgb 9.1 L Hct 28.4 L MCV MCH 27 L MCHC RDW 19.1 H Plt Count 858 H Lymph % (Auto) 4.9 L [place] % (Auto) 8.1 H Lymph # 0.8 L [place] # 1.3 H Baso # Seg Neutrophils % 85.5 H Seg Neuts % (Manual) Lymphocytes % (Manual) Monocytes % (Manual) Nucleated RBC % Seg Neutrophils # 13.6 H Seg Neutrophils # Man Lymphocytes # (Manual) Monocytes # (Manual) PT INR D-Dimer ABG pH ABG pO2 ABG HCO3 ABG O2 Saturation ABG Base Excess ABG Hemoglobin Oxyhemoglobin Sodium Potassium Chloride 111.6 H Carbon Dioxide BUN 50 H Creatinine 0.7 L Glucose 118 H POC Glucose 114 H Lactic Acid Calcium Magnesium Iron TIBC Ferritin AST ALT Lactate Dehydrogenase Troponin T C-Reactive Protein Total Protein Albumin Prealbumin Cholesterol LDL Cholesterol Direct HDL Cholesterol Urine WBC (Auto) Vancomycin Trough Coronavirus (PCR) Crossmatch 07/19/19 07/19/19 07/20/19 18:25 23:44 04:39 WBC RBC Hgb Hct MCV MCH MCHC RDW Plt Count Lymph % (Auto) [place] % (Auto) Lymph # [place] # Baso # Seg Neutrophils % Seg Neuts % (Manual) Lymphocytes % (Manual) Monocytes % (Manual) Nucleated RBC % Seg Neutrophils # Seg Neutrophils # Man Lymphocytes # (Manual) Monocytes # (Manual) PT INR D-Dimer ABG pH ABG pO2 ABG HCO3 ABG O2 Saturation ABG Base Excess ABG Hemoglobin Oxyhemoglobin Sodium Potassium Chloride 110.3 H Carbon Dioxide BUN 44 H Creatinine 0.6 L Glucose 120 H POC Glucose 115 H 117 H Lactic Acid Calcium Magnesium Iron TIBC Ferritin AST ALT Lactate Dehydrogenase Troponin T C-Reactive Protein Total Protein Albumin Prealbumin Cholesterol LDL Cholesterol Direct HDL Cholesterol Urine WBC (Auto) Vancomycin Trough Coronavirus (PCR) Crossmatch 07/20/19 07/21/19 07/21/19 05:30 11:59 17:40 WBC RBC Hgb Hct MCV MCH MCHC RDW Plt Count Lymph % (Auto) [place] % (Auto) Lymph # [place] # Baso # Seg Neutrophils % Seg Neuts % (Manual) Lymphocytes % (Manual) Monocytes % (Manual) Nucleated RBC % Seg Neutrophils # Seg Neutrophils # Man Lymphocytes # (Manual) Monocytes # (Manual) PT INR D-Dimer ABG pH ABG pO2 ABG HCO3 ABG O2 Saturation ABG Base Excess ABG Hemoglobin Oxyhemoglobin Sodium Potassium Chloride Carbon Dioxide BUN Creatinine Glucose POC Glucose 131 H 122 H 125 H Lactic Acid Calcium Magnesium Iron TIBC Ferritin AST ALT Lactate Dehydrogenase Troponin T C-Reactive Protein Total Protein Albumin Prealbumin Cholesterol LDL Cholesterol Direct HDL Cholesterol Urine WBC (Auto) Vancomycin Trough Coronavirus (PCR) Crossmatch 07/22/19 07/22/19 07/22/19 05:38 05:38 12:29 WBC 12.6 H RBC 3.19 L Hgb 8.9 L Hct 27.5 L MCV MCH MCHC RDW 18.9 H Plt Count 1101 H* Lymph % (Auto) [place] % (Auto) 12.2 H Lymph # [place] # 1.5 H Baso # Seg Neutrophils % 72.8 H Seg Neuts % (Manual) 76.0 H Lymphocytes % (Manual) 7.0 L Monocytes % (Manual) 14.0 H Nucleated RBC % 1.0 H Seg Neutrophils # 9.2 H Seg Neutrophils # Man 9.6 H Lymphocytes # (Manual) 0.9 L Monocytes # (Manual) 1.8 H PT INR D-Dimer ABG pH ABG pO2 ABG HCO3 ABG O2 Saturation ABG Base Excess ABG Hemoglobin Oxyhemoglobin Sodium Potassium 3.4 L Chloride Carbon Dioxide BUN 29 H Creatinine 0.5 L Glucose POC Glucose 116 H Lactic Acid Calcium Magnesium Iron TIBC Ferritin AST ALT Lactate Dehydrogenase Troponin T C-Reactive Protein Total Protein Albumin Prealbumin Cholesterol LDL Cholesterol Direct HDL Cholesterol Urine WBC (Auto) Vancomycin Trough Coronavirus (PCR) Crossmatch 07/22/19 07/22/19 07/23/19 18:20 23:51 04:52 WBC RBC Hgb Hct MCV MCH MCHC RDW Plt Count Lymph % (Auto) [place] % (Auto) Lymph # [place] # Baso # Seg Neutrophils % Seg Neuts % (Manual) Lymphocytes % (Manual) Monocytes % (Manual) Nucleated RBC % Seg Neutrophils # Seg Neutrophils # Man Lymphocytes # (Manual) Monocytes # (Manual) PT INR D-Dimer ABG pH ABG pO2 ABG HCO3 ABG O2 Saturation ABG Base Excess ABG Hemoglobin Oxyhemoglobin Sodium Potassium Chloride Carbon Dioxide BUN 24 H Creatinine 0.4 L Glucose POC Glucose 107 H 110 H Lactic Acid Calcium Magnesium Iron TIBC Ferritin AST ALT Lactate Dehydrogenase Troponin T C-Reactive Protein Total Protein Albumin Prealbumin Cholesterol LDL Cholesterol Direct HDL Cholesterol Urine WBC (Auto) Vancomycin Trough Coronavirus (PCR) Crossmatch 07/23/19 07/23/19 07/24/19 06:00 23:15 04:40 WBC RBC Hgb Hct MCV MCH MCHC RDW Plt Count Lymph % (Auto) [place] % (Auto) Lymph # [place] # Baso # Seg Neutrophils % Seg Neuts % (Manual) Lymphocytes % (Manual) Monocytes % (Manual) Nucleated RBC % Seg Neutrophils # Seg Neutrophils # Man Lymphocytes # (Manual) Monocytes # (Manual) PT INR D-Dimer ABG pH ABG pO2 73.5 L ABG HCO3 27.0 H 28.5 H ABG O2 Saturation 94.5 L ABG Base Excess ABG Hemoglobin 9.4 L 8.9 L Oxyhemoglobin 94.0 L 92.7 L Sodium Potassium Chloride Carbon Dioxide BUN Creatinine Glucose POC Glucose 117 H Lactic Acid Calcium Magnesium Iron TIBC Ferritin AST ALT Lactate Dehydrogenase Troponin T C-Reactive Protein Total Protein Albumin Prealbumin Cholesterol LDL Cholesterol Direct HDL Cholesterol Urine WBC (Auto) Vancomycin Trough Coronavirus (PCR) Crossmatch 07/24/19 07/24/19 07/25/19 05:25 12:06 00:16 WBC RBC Hgb Hct MCV MCH MCHC RDW Plt Count Lymph % (Auto) [place] % (Auto) Lymph # [place] # Baso # Seg Neutrophils % Seg Neuts % (Manual) Lymphocytes % (Manual) Monocytes % (Manual) Nucleated RBC % Seg Neutrophils # Seg Neutrophils # Man Lymphocytes # (Manual) Monocytes # (Manual) PT INR D-Dimer ABG pH ABG pO2 ABG HCO3 ABG O2 Saturation ABG Base Excess ABG Hemoglobin Oxyhemoglobin Sodium Potassium Chloride Carbon Dioxide BUN Creatinine Glucose POC Glucose 114 H 108 H 106 H Lactic Acid Calcium Magnesium Iron TIBC Ferritin AST ALT Lactate Dehydrogenase Troponin T C-Reactive Protein Total Protein Albumin Prealbumin Cholesterol LDL Cholesterol Direct HDL Cholesterol Urine WBC (Auto) Vancomycin Trough Coronavirus (PCR) Crossmatch 07/25/19 07/25/19 07/25/19 05:14 05:14 05:17 WBC 17.8 H RBC 3.32 L Hgb 9.2 L Hct 28.6 L MCV MCH MCHC RDW 19.9 H Plt Count 994 H Lymph % (Auto) [place] % (Auto) Lymph # [place] # Baso # Seg Neutrophils % Seg Neuts % (Manual) 82.0 H Lymphocytes % (Manual) 5.0 L Monocytes % (Manual) Nucleated RBC % Seg Neutrophils # Seg Neutrophils # Man 14.6 H Lymphocytes # (Manual) 0.9 L Monocytes # (Manual) 1.2 H PT INR D-Dimer ABG pH ABG pO2 ABG HCO3 ABG O2 Saturation ABG Base Excess ABG Hemoglobin Oxyhemoglobin Sodium Potassium Chloride Carbon Dioxide BUN Creatinine 0.4 L Glucose 110 H POC Glucose 107 H Lactic Acid Calcium Magnesium Iron TIBC Ferritin AST ALT Lactate Dehydrogenase Troponin T C-Reactive Protein Total Protein Albumin Prealbumin Cholesterol LDL Cholesterol Direct HDL Cholesterol Urine WBC (Auto) Vancomycin Trough Coronavirus (PCR) Crossmatch 07/25/19 07/25/19 07/26/19 11:55 23:49 06:01 WBC RBC Hgb Hct MCV MCH MCHC RDW Plt Count Lymph % (Auto) [place] % (Auto) Lymph # [place] # Baso # Seg Neutrophils % Seg Neuts % (Manual) Lymphocytes % (Manual) Monocytes % (Manual) Nucleated RBC % Seg Neutrophils # Seg Neutrophils # Man Lymphocytes # (Manual) Monocytes # (Manual) PT INR D-Dimer ABG pH ABG pO2 ABG HCO3 ABG O2 Saturation ABG Base Excess ABG Hemoglobin Oxyhemoglobin Sodium Potassium Chloride Carbon Dioxide BUN Creatinine Glucose POC Glucose 123 H 118 H 106 H Lactic Acid Calcium Magnesium Iron TIBC Ferritin AST ALT Lactate Dehydrogenase Troponin T C-Reactive Protein Total Protein Albumin Prealbumin Cholesterol LDL Cholesterol Direct HDL Cholesterol Urine WBC (Auto) Vancomycin Trough Coronavirus (PCR) Crossmatch 07/26/19 07/27/19 07/27/19 17:02 00:28 05:16 WBC RBC Hgb Hct MCV MCH MCHC RDW Plt Count Lymph % (Auto) [place] % (Auto) Lymph # [place] # Baso # Seg Neutrophils % Seg Neuts % (Manual) Lymphocytes % (Manual) Monocytes % (Manual) Nucleated RBC % Seg Neutrophils # Seg Neutrophils # Man Lymphocytes # (Manual) Monocytes # (Manual) PT INR D-Dimer ABG pH ABG pO2 63.4 L ABG HCO3 31.3 H ABG O2 Saturation 92.7 L ABG Base Excess 6.3 H ABG Hemoglobin 7.6 L Oxyhemoglobin 90.9 L Sodium Potassium Chloride Carbon Dioxide BUN Creatinine Glucose POC Glucose 116 H 158 H Lactic Acid Calcium Magnesium Iron TIBC Ferritin AST ALT Lactate Dehydrogenase Troponin T C-Reactive Protein Total Protein Albumin Prealbumin Cholesterol LDL Cholesterol Direct HDL Cholesterol Urine WBC (Auto) Vancomycin Trough Coronavirus (PCR) Crossmatch 07/28/19 07/28/19 07/28/19 10:13 10:13 23:54 WBC 18.5 H RBC 3.20 L Hgb 8.8 L Hct 26.8 L MCV MCH 27 L MCHC RDW 19.9 H Plt Count 730 H Lymph % (Auto) [place] % (Auto) Lymph # [place] # Baso # Seg Neutrophils % Seg Neuts % (Manual) Lymphocytes % (Manual) Monocytes % (Manual) Nucleated RBC % Seg Neutrophils # Seg Neutrophils # Man Lymphocytes # (Manual) Monocytes # (Manual) PT INR D-Dimer ABG pH ABG pO2 ABG HCO3 ABG O2 Saturation ABG Base Excess ABG Hemoglobin Oxyhemoglobin Sodium Potassium 3.2 L Chloride 97.5 L Carbon Dioxide 31 H BUN Creatinine 0.5 L Glucose POC Glucose 120 H Lactic Acid Calcium Magnesium Iron TIBC Ferritin AST ALT Lactate Dehydrogenase Troponin T C-Reactive Protein Total Protein Albumin Prealbumin Cholesterol LDL Cholesterol Direct HDL Cholesterol Urine WBC (Auto) Vancomycin Trough Coronavirus (PCR) Crossmatch 07/29/19 07/29/19 07/29/19 11:57 17:43 Unknown WBC RBC Hgb Hct MCV MCH MCHC RDW Plt Count Lymph % (Auto) [place] % (Auto) Lymph # [place] # Baso # Seg Neutrophils % Seg Neuts % (Manual) Lymphocytes % (Manual) Monocytes % (Manual) Nucleated RBC % Seg Neutrophils # Seg Neutrophils # Man Lymphocytes # (Manual) Monocytes # (Manual) PT INR D-Dimer ABG pH ABG pO2 ABG HCO3 ABG O2 Saturation ABG Base Excess ABG Hemoglobin Oxyhemoglobin Sodium Potassium Chloride Carbon Dioxide BUN Creatinine Glucose POC Glucose 112 H Lactic Acid Calcium Magnesium Iron TIBC Ferritin AST ALT Lactate Dehydrogenase Troponin T C-Reactive Protein Total Protein Albumin Prealbumin Cholesterol LDL Cholesterol Direct HDL Cholesterol Urine WBC (Auto) 63.0 H Vancomycin Trough Coronavirus (PCR) Positive A Crossmatch 07/30/19 07/30/19 07/30/19 00:20 04:35 04:35 WBC 24.3 H RBC 3.12 L Hgb 8.5 L Hct 26.3 L MCV MCH 27 L MCHC RDW 20.2 H Plt Count 550 H Lymph % (Auto) [place] % (Auto) Lymph # [place] # Baso # Seg Neutrophils % Seg Neuts % (Manual) Lymphocytes % (Manual) Monocytes % (Manual) Nucleated RBC % Seg Neutrophils # Seg Neutrophils # Man Lymphocytes # (Manual) Monocytes # (Manual) PT INR D-Dimer ABG pH ABG pO2 ABG HCO3 ABG O2 Saturation ABG Base Excess ABG Hemoglobin Oxyhemoglobin Sodium Potassium 3.0 L Chloride 96.3 L Carbon Dioxide 32 H BUN Creatinine 0.5 L Glucose POC Glucose 106 H Lactic Acid Calcium Magnesium Iron TIBC Ferritin AST ALT Lactate Dehydrogenase Troponin T C-Reactive Protein Total Protein Albumin Prealbumin Cholesterol LDL Cholesterol Direct HDL Cholesterol Urine WBC (Auto) Vancomycin Trough Coronavirus (PCR) Crossmatch 07/31/19 07/31/19 07/31/19 04:42 04:42 11:33 WBC 23.8 H RBC 3.10 L Hgb 8.4 L Hct 26.1 L MCV MCH 27 L MCHC RDW 19.6 H Plt Count 561 H Lymph % (Auto) [place] % (Auto) Lymph # [place] # Baso # Seg Neutrophils % Seg Neuts % (Manual) Lymphocytes % (Manual) Monocytes % (Manual) Nucleated RBC % Seg Neutrophils # Seg Neutrophils # Man Lymphocytes # (Manual) Monocytes # (Manual) PT INR D-Dimer ABG pH ABG pO2 ABG HCO3 ABG O2 Saturation ABG Base Excess ABG Hemoglobin Oxyhemoglobin Sodium 135 L Potassium Chloride 93.9 L Carbon Dioxide 32 H BUN Creatinine 0.4 L Glucose POC Glucose 116 H Lactic Acid Calcium Magnesium Iron TIBC Ferritin AST ALT Lactate Dehydrogenase Troponin T C-Reactive Protein Total Protein Albumin 1.6 L Prealbumin 0.037 L Cholesterol LDL Cholesterol Direct HDL Cholesterol Urine WBC (Auto) Vancomycin Trough Coronavirus (PCR) Crossmatch 07/31/19 08/01/19 08/01/19 23:33 04:57 04:57 WBC 26.7 H RBC 3.12 L Hgb 8.5 L Hct 26.3 L MCV MCH 27 L MCHC RDW 19.2 H Plt Count 602 H Lymph % (Auto) [place] % (Auto) Lymph # [place] # Baso # Seg Neutrophils % Seg Neuts % (Manual) 93.0 H Lymphocytes % (Manual) 2.0 L Monocytes % (Manual) Nucleated RBC % Seg Neutrophils # Seg Neutrophils # Man 24.8 H Lymphocytes # (Manual) 0.5 L Monocytes # (Manual) 1.1 H PT INR D-Dimer ABG pH ABG pO2 ABG HCO3 ABG O2 Saturation ABG Base Excess ABG Hemoglobin Oxyhemoglobin Sodium 132 L Potassium Chloride 93.8 L Carbon Dioxide 31 H BUN Creatinine 0.3 L Glucose POC Glucose 148 H Lactic Acid Calcium 8.1 L Magnesium Iron TIBC Ferritin AST ALT Lactate Dehydrogenase Troponin T C-Reactive Protein Total Protein Albumin Prealbumin Cholesterol LDL Cholesterol Direct HDL Cholesterol Urine WBC (Auto) Vancomycin Trough Coronavirus (PCR) Crossmatch 08/01/19 08/02/19 08/02/19 12:16 00:22 05:24 WBC RBC Hgb Hct MCV MCH MCHC RDW Plt Count Lymph % (Auto) [place] % (Auto) Lymph # [place] # Baso # Seg Neutrophils % Seg Neuts % (Manual) Lymphocytes % (Manual) Monocytes % (Manual) Nucleated RBC % Seg Neutrophils # Seg Neutrophils # Man Lymphocytes # (Manual) Monocytes # (Manual) PT INR D-Dimer ABG pH ABG pO2 ABG HCO3 ABG O2 Saturation ABG Base Excess ABG Hemoglobin Oxyhemoglobin Sodium Potassium Chloride Carbon Dioxide BUN Creatinine Glucose POC Glucose 120 H 119 H 113 H Lactic Acid Calcium Magnesium Iron TIBC Ferritin AST ALT Lactate Dehydrogenase Troponin T C-Reactive Protein Total Protein Albumin Prealbumin Cholesterol LDL Cholesterol Direct HDL Cholesterol Urine WBC (Auto) Vancomycin Trough Coronavirus (PCR) Crossmatch 08/04/19 08/04/19 08/05/19 05:38 05:38 04:58 WBC 26.1 H 21.0 H RBC 2.77 L 2.63 L Hgb 7.5 L 7.2 L Hct 23.2 L 21.9 L MCV 83 L MCH 27 L 27 L MCHC RDW 19.2 H 18.9 H Plt Count 648 H 691 H Lymph % (Auto) [place] % (Auto) Lymph # [place] # Baso # Seg Neutrophils % Seg Neuts % (Manual) 90.5 H 86.0 H Lymphocytes % (Manual) 3.5 L 3.0 L Monocytes % (Manual) 10.0 H Nucleated RBC % Seg Neutrophils # Seg Neutrophils # Man 23.6 H 18.1 H Lymphocytes # (Manual) 0.9 L 0.6 L Monocytes # (Manual) 1.2 H 2.1 H PT INR D-Dimer ABG pH ABG pO2 ABG HCO3 ABG O2 Saturation ABG Base Excess ABG Hemoglobin Oxyhemoglobin Sodium 132 L Potassium 3.4 L D Chloride 92.7 L Carbon Dioxide 33 H BUN Creatinine 0.2 L Glucose POC Glucose Lactic Acid Calcium 8.1 L Magnesium Iron TIBC Ferritin AST ALT Lactate Dehydrogenase Troponin T C-Reactive Protein Total Protein Albumin Prealbumin Cholesterol LDL Cholesterol Direct HDL Cholesterol Urine WBC (Auto) Vancomycin Trough Coronavirus (PCR) Crossmatch 08/05/19 04:58 WBC RBC Hgb Hct MCV MCH MCHC RDW Plt Count Lymph % (Auto) [place] % (Auto) Lymph # [place] # Baso # Seg Neutrophils % Seg Neuts % (Manual) Lymphocytes % (Manual) Monocytes % (Manual) Nucleated RBC % Seg Neutrophils # Seg Neutrophils # Man Lymphocytes # (Manual) Monocytes # (Manual) PT INR D-Dimer ABG pH ABG pO2 ABG HCO3 ABG O2 Saturation ABG Base Excess ABG Hemoglobin Oxyhemoglobin Sodium 134 L Potassium 3.2 L Chloride 93.2 L Carbon Dioxide 34 H BUN 8 L Creatinine 0.3 L Glucose POC Glucose Lactic Acid Calcium 8.1 L Magnesium Iron TIBC Ferritin AST ALT Lactate Dehydrogenase Troponin T C-Reactive Protein Total Protein Albumin Prealbumin Cholesterol LDL Cholesterol Direct HDL Cholesterol Urine WBC (Auto) Vancomycin Trough Coronavirus (PCR) Crossmatch Allied health notes reviewed: nursing
[2019-08-05] MEDS: ACETAMINOPHEN 650 MG RECT SUPP PR PRN (17:40)
[2019-08-06 05:40] LABS: Hematocrit 23.5 % (35.5-45.6); Hemoglobin 7.6 gm/dl (11.8-15.2); Mean Corpuscular HGB Conc 33 % (32-34); Mean Corpuscular Volume 84 fl (84-94); Platelet Count 723 K/mm3 (140-440)
[2019-08-06 06:04] LABS: BUN/Creatinine Ratio 30; Blood Urea Nitrogen 9 mg/dL (9-20); Calcium 8.2 mg/dL (8.4-10.2); Hemolysis Index 6
[2019-08-06] MEDS: INSULIN LISPRO 100 UNIT/ML SUB-Q SCH ×4 (06:04→18:30)
[2019-08-06 07:50] LABS: Band Neutrophils # (Manual) 0.2 K/mm3; Total Cells Counted 100
[2019-08-06 07:51] LABS: Anisocytosis 1+; Platelet Estimate Consistent w Auto
--- NOTE | 2019-08-06 09:25 | Progress Note ---
Assessment and Plan Cultures: 07/03/2019 urine culture: No growth 07/03/2019 Tracheal aspirate: E.coli 07/29/2019 urine culture: neg 07/30/2019 blood culture: no growth tracheal asp + Pseudomonas A/P: 69-year-old male with CVA, hypertension, dementia, schizophrenia, alcohol use disorder was admitted to the emergency room after being brought in by EMS with progressive shortness of breath and unresponsiveness. He was noted to have agonal breathing and a faint pulse requiring CPR. It seems patient was on hospice recently, prior to admission. #Shock, likely septic: shock resolved, remains off pressors. Noted new fever and worsening leukocytosis ? bacterial pneumonia. Very high procal=24 on 07/29. #Presumed VAP vs colonization: Sputum +Pseudomonas. #Penile/scrotal and buttocks wounds: ?cellulitis #UTI: per documentation initial carroll placed on 07/03, exchanged on 07/31. #Severe COVID-19 disease and pneumonia: Markers improving. Completed Plaquenil. Completed Ceftriaxone for treatment E.coli in tracheal aspirate. #Acute respiratory failure: on mechanical ventilation. #Transaminitis: Likely from COVID-19, shock #Multiple skin tears documented on admission Recs: start cefepime 2 gm IV q8 hour to cover presumed PsA pneumonia repeat CXR today Monitor fever Obtain blood cx Continue Wound care Off loading Tracheostomy placement to be scheduled when COVID testing is negative per surgery. Repeat COVID 07/28 positive,. will recheck tomorrow Will follow Padmaja Garcia MD Infectious Diseases [employer] [facility] M [phone] O [phone] Subjective Date of service: 08/06/19 Principal diagnosis: Bilateral pneumonia, severe sepsis with septic shock, encephalopathy Interval history: Remains intubated,remaisn with low grade fever 100.6, no pressors, on sedative Objective - Exam Narrative Exam: General appearance: sedated on the vent Eyes: anicteric sclerae, moist conjunctivae; no lid-lag; PERRLA HENT: Atraumatic; oropharynx ETT Lungs: CTA CV: RRR no murmur Abdomen: Soft, non-tender Extremities: marked madelin arm edema Skin: No rash. Genital: penile/scrotal ulcer covered w dressings Psych: no agitated Neuro: sedated Carroll - Constitutional Vitals: Vital Signs Temp Pulse Resp BP Pulse Ox 100.1 F H 112 H 17 155/80 100 08/06/19 08:00 08/06/19 08:00 08/06/19 06:00 08/06/19 08:00 08/06/19 08:00 Temperature -Last 24 Hours Temperature 100.1 F Temperature 100.0 F Temperature 100.1 F Temperature 99.8 F Temperature 100 F Temperature 100.2 F - Labs CBC & Chem 7: 08/06/19 04:11 08/06/19 04:11 Labs: Abnormal lab results 08/05/19 08/06/19 08/06/19 Range/Units 04:58 04:11 04:11 WBC 20.8 H (4.5-11.0) K/mm3 RBC 2.80 L (3.65-5.03) M/mm3 Hgb 7.6 L (11.8-15.2) gm/dl Hct 23.5 L (35.5-45.6) % MCH 27 L (28-32) pg RDW 19.0 H (13.2-15.2) % Plt Count 723 H (140-440) K/mm3 Seg Neuts % (Manual) 86.0 H 88.0 H (40.0-70.0) % Lymphocytes % (Manual) 3.0 L 3.0 L (13.4-35.0) % Monocytes % (Manual) 10.0 H (0.0-7.3) % Seg Neutrophils # Man 18.1 H 18.3 H (1.8-7.7) K/mm3 Lymphocytes # (Manual) 0.6 L 0.6 L (1.2-5.4) K/mm3 Monocytes # (Manual) 2.1 H (0.0-0.8) K/mm3 Basophils # (Manual) 0.2 H (0.0-0.1) K/mm3 Potassium 3.4 L (3.6-5.0) mmol/L Chloride 95.2 L (98-107) mmol/L Carbon Dioxide 32 H (22-30) mmol/L Creatinine 0.3 L (0.8-1.5) mg/dL Calcium 8.2 L (8.4-10.2) mg/dL
--- NOTE | 2019-08-06 09:32 | XRay Report ---
CHEST 1 VIEW INDICATION: new fever eval pneumonia. COMPARISON: 07/30/2019 FINDINGS: Support devices: Endotracheal tube and NG tube remain in satisfactory position. Heart: Within normal limits. Lungs/Pleura: Bilateral interstitial/airspace disease right greater than left remains with mild inter jd improvement. No new abnormality. Additional findings: None. IMPRESSION: No new abnormality. Signer Name: Pillo Lozoya MD Signed: 08/06/2019 9:27 AM Workstation Name: [id number]
[2019-08-06] MEDS ORDERED: CEFEPIME/NS 2 GM/100 ML 2 GM/100 ML BAG IV SCH (10:00)
[2019-08-06] MEDS ORDERED: POTASSIUM CHLORIDE 20 MEQ PACKET FEEDTUBE ONE (10:00)
[2019-08-06] MEDS: levETIRAcetam 500 MG/5 ML ORAL LIQD FEEDTUBE SCH ×2 (10:08→21:16)
[2019-08-06] MEDS: FOLIC ACID 1 MG TAB PO SCH (10:08)
[2019-08-06] MEDS: ASPIRIN 81 MG TAB CHEW PO SCH (10:08)
[2019-08-06] MEDS: FAMOTIDINE 20 MG TAB PO SCH ×2 (10:08→21:16)
[2019-08-06] MEDS: DOCUSATE SODIUM 100 MG/10 ML ORAL LIQD PO SCH ×2 (10:08→21:16)
[2019-08-06] MEDS: SODIUM HYPOCHLORITE, DAKIN'S 1/2 STRENGTH (0.25%) 473 ML TOPICAL SOLN TP SCH ×2 (10:09→21:16)
[2019-08-06] MEDS: ENOXAPARIN 40 MG/0.4 ML INJ SUB-Q SCH (10:10)
[2019-08-06] MEDS: SCOPOLAMINE TRANSDERMAL PATCH 72 HR TD SCH (10:26)
[2019-08-06] MEDS: fentaNYL 25 MCG/HR PATCH 72HR TD SCH (10:27)
--- NOTE | 2019-08-06 10:29 | Progress Note ---
Assessment and Plan Assessment and plan: --COVid positive pneumonia with severe sepsis Received Plaquenil and cefepime, monitor off antibiotics ID following --Septic shock: On Levophed Persistent hypotension, titrate to systolic blood pressure more than 100 -- Acute respiratory Failure with Hypoxia Due to bilateral PNA with COVID 19 infection. On ventilatory support, unable to wean Pulmonary critical following --COPD with exacerbation Likely due to COVID-19 pneumonia Continue scheduled nebs --Anemia, Microcytic persistent s/p total 3 unit of PRBC, today Hb today 9.1 --Pressure Ulcers: POA buttocks, right lateral foot area wound and supportive care --Hyponatremia, resolved --DM type 2: Accu-Chek SCC tube feeding, insulin as needed --h/o HTN Essential, now hypotensive On Levophed --Seizure D/o/CVA/immobility/BIpolar D/o/SCZ Seizure precautions, antiepileptic medications --Severe PCM, TF supportive care, dietary following patient is DNR- Called and verified information Very poor prognosis, Recommend hospice 07/04: COVID +ve, start on plaquinil, called no answer 07/05: transfuse one unit PRBC, Hb dropped to ~6, called and updated 07/06; H&H stable, serum chemistry improved. On mechanical ventilation with high inflammatory markers. Continue Plaquenil and empiric antibiotics. ID following, prognosis remains guarded and extremely poor. 07/07: On mechanical ventilation with high inflammatory markers. Continue Plaquenil and empiric antibiotics. ID following, prognosis remains guarded and extremely poor. 07/08: Called today and verified the CODE STATUS. Patient remains DNR. He is still intubated, with poor prognosis. Continue to follow inflammatory markers. 07/09 wean off from vent as tolerated, completed empiric antibiotic and Plaquenil 07/10 wean off from vent as tolerated. poor prognosis 07/11 hb 6.7 today, transfuse one PRBC. wean off from vent as tolerated. poor prognosis 07/12 remains critically on vent. Hb 6.9 07/13 Hb dropped to 6.6, transfuse 1 unit of PRBC, remains on vent critically ill Hypotensive, fluid bolus, if no improvement start Levophed 07/14; remains anemic with hemoglobin of 6.8, received total 3 units of PRBC Additional 1 unit of PRBC today, stool for occult blood to rule out GI causes Started back on Levophed due to hypotension 07/15; patient remains critically ill, hypotensive on Levophed 07/16: Today remains intubated on vent, persistent hypotension on Levophed 07/17; clinically no change, pressor dependent[on Levophed] DNR status 07/18: Patient remains hypotensive requiring Levophed, intubated on vent Unable to wean, critically ill. DNR 07/20/2019 Patient remains hypotensive requiring Levophed, intubated on vent. Patient currently with AC mode ventilation, rate 20, tidal volume 500, FiO2 40% and PEEP 6. Patient is a poor prognosis and apparently was on hospice recently. 07/21/2019. Patient with PEG tube that was clogged yesterday. surgery evaluated the patient and noted Very long PEG tubing with thick material inside. The ent celsa tube was stripped and a large amount of formed tube feed was expressed. The tube was then flushed with sprite and flushed easily. Tube clamped. Patient currently with AC mode ventilation, rate 20, tidal volume 500, FiO2 40% and PEEP 6. Patient is a poor prognosis and apparently was on hospice recently. 07/22/2019. Patient currently with AC mode ventilation, rate 20, tidal volume 500, FiO2 30% and PEEP 6. Patient on sedation with fentanyl drip. Continue Levophed to maintain MAP greater than 65. Patient is a poor prognosis and apparently was on hospice recently. 07/23/2019. Patient currently with AC mode ventilation, rate 20, tidal volume 500, FiO2 30% and PEEP 6. Patient on sedation with fentanyl drip. Continue Levophed to maintain MAP greater than 65. Patient is a poor prognosis and apparently was on hospice recently. 07/24/2019 Patient with Covid-19 infection with pneumonia, acute respiratory failure, intubated on ventilator. No more fever. Continue current management. 07/25/2019 Patient with Covid-19 infection with pneumonia, acute respiratory failure, intubated on ventilator. fever is now resolved. Sedated with propofol 07/26/2019 Patient with covid-19 infection. Still intubated, on vent. 07/27/2019 Patient with Covid-19. he is still critically ill. patient has DNR order. 07/28/2019 Patient with Covid-19 infection. Will repeat labs today. Surgeon consulted for tracheostomy. 07/29/2019 Patient with Covid-19. hypokalemia yesterday, replaced. Will recheck labs in am. 07/30/2019 patient with Covid-19 infection with acute respiratory failure. He is intubated on ventilator. has hypokalemia. replace and recheck BMP in am. patient has UTI, started on Cefepime. 07/31/2019. patient with Covid-19 infection with acute respiratory failure. He is intubated on ventilator. Repeat chest x-ray reveals decreased infiltrates. urology consultation and wound care consult per ID. Follow-up urine and blood culture. Tracheostomy per surgery. 08/01/2019. patient with Covid-19 infection with acute respiratory failure. He is intubated on ventilator. Patient currently with PSV trials. Pressure support 18/PEEP 6. FiO2 30%. Tracheostomy to be placed per surgery wound COVID testing negative. 08/02/2019. Patient with COVID-19 infection and acute respiratory failure on mechanical ventilation. Continue with PSVT trials with pressure support increased to 20. Follow-up serial chest x-ray. Continue Fentanyl infusion and wean sedation as tolerated. Continue daily spontaneous breathing trials. 08/03/2019. Patient with COVID-19 infection and acute respiratory failure on mechanical ventilation. Continue with PSV trials with pressure support increased to 20. Follow-up serial chest x-ray. Continue Fentanyl infusion and wean sedation as tolerated. Continue daily spontaneous breathing trials. 08/04/2019. Patient with COVID-19 infection and acute respiratory failure on mechanical ventilation. Continue with PSV trials 14/6, FiO2 30%. Continue Fentanyl infusion and wean sedation as tolerated. Continue daily spontaneous breathing trials. Tracheostomy placement to be scheduled when COVID testing is negative per surgery. Monitor off antibiotics per ID recommendations 08/05/2019. Patient with COVID-19 infection and acute respiratory failure on mechanical ventilation. Patient currently on AC mode, rate 14, tidal volume 500, FiO2 30% and PEEP of 6. Continue PSV trials as tolerated. Tracheostomy placement to be scheduled when COVID testing is negative per surgery. Monitor off antibiotics per ID recommendations. 08/06/2019. Patient with COVID-19 infection and acute respiratory failure on mechanical ventilation. Patient currently on AC mode, rate 14, tidal volume 500, FiO2 30% and PEEP of 6. Continue PSV trials as tolerated. Tracheostomy placement to be scheduled when COVID testing is negative per surgery. ID restarted antibiotics with cefepime 2 g IV every 8 hours to cover for presumed Pseudomonas pneumonia. Follow-up chest x-ray and blood cultures. Repeat COVID testing 07/28 and positive. Repeat test tomorrow. The high probability of a clinically significant, sudden or life threatening deterioration of the [respiratory, [employer], [employer]] system(s) required my full and direct attention, intervention and personal management. The aggregate critical care time was [33] minutes. This time is in addition to time spent performing reported procedures but includes the following: [x] Data Review and interpretation [x] Patient assessment and monitoring of vital signs [x] Documentation [x] Medication orders and management History Interval history: 69-year-old male patient with PMH of CVA with RHP, HTN, DM2, SCZ, Dementia, Alcohol use D/o, Seizure D/O, presents to the emergency department via EMS from home with progressive SOB and impending espiratory failure with an unresponsive . PT was intubated was admitted through emergency room to ICU treated for sepsis, b/l PNA, acute respiratory failure received antibiotics. Patient was tested positive for COVID19. Evaluated by ID , received antibiotics Plaquenil, and inflammatory markers were checked and followed. Patient was hypotensive requiring Levophed, continues to be hypotensive currently on Levophed, unable to wean remains intubated on ventilatory support, critically ill, DNR status however family wants full treatment. Hospitalist Physical - Constitutional Vitals: Temp Pulse Resp BP Pulse Ox 100.1 F H 112 H 17 155/80 100 08/06/19 08:00 08/06/19 08:00 08/06/19 06:00 08/06/19 08:00 08/06/19 08:00 General appearance: Present: severe distress, well-nourished, other (Orally intubated on vent) - EENT Eyes: Present: PERRL, EOM intact ENT: hearing intact, clear oral mucosa, dentition normal - Neck Neck: Present: supple, normal ROM - Respiratory Respiratory effort: normal Respiratory: bilateral: CTA - Cardiovascular Rhythm: regular Heart Sounds: Present: S1 & S2. Absent: gallop, rub - Extremities Extremities: no ischemia, No edema, Full ROM - Abdominal General gastrointestinal: soft, non-tender, non-distended, normal bowel sounds - Integumentary Integumentary: Present: clear, warm, dry - Neurologic Neurologic: CNII-XII intact, moves all extremities HEART Score - HEART Score Troponin: Troponin T 0.013 ng/mL (0.00-0.029) 07/04/19 07:05 Results - Labs CBC & Chem 7: 08/06/19 04:11 08/06/19 04:11 Labs: Laboratory Last Values WBC 20.8 K/mm3 (4.5-11.0) H 08/06/19 04:11 RBC 2.80 M/mm3 (3.65-5.03) L 08/06/19 04:11 Hgb 7.6 gm/dl (11.8-15.2) L 08/06/19 04:11 Hct 23.5 % (35.5-45.6) L 08/06/19 04:11 MCV 84 fl (84-94) 08/06/19 04:11 MCH 27 pg (28-32) L 08/06/19 04:11 MCHC 33 % (32-34) 08/06/19 04:11 RDW 19.0 % (13.2-15.2) H 08/06/19 04:11 Plt Count 723 K/mm3 (140-440) H 08/06/19 04:11 Lymph % (Auto) 4.9 % (13.4-35.0) L 07/19/19 08:45 Divide % (Auto) 12.2 % (0.0-7.3) H 07/22/19 05:38 Eos % (Auto) 1.0 % (0.0-4.3) 07/19/19 08:45 Baso % (Auto) 0.5 % (0.0-1.8) 07/19/19 08:45 Lymph # 0.8 K/mm3 (1.2-5.4) L 07/19/19 08:45 Divide # 1.5 K/mm3 (0.0-0.8) H 07/22/19 05:38 Eos # 0.2 K/mm3 (0.0-0.4) 07/19/19 08:45 Baso # 0.1 K/mm3 (0.0-0.1) 07/19/19 08:45 Add Manual Diff Complete 08/06/19 04:11 Total Counted 100 08/06/19 04:11 Seg Neutrophils % 72.8 % (40.0-70.0) H 07/22/19 05:38 Seg Neuts % (Manual) 88.0 % (40.0-70.0) H 08/06/19 04:11 Band Neutrophils % 1.0 % 08/06/19 04:11 Lymphocytes % (Manual) 3.0 % (13.4-35.0) L 08/06/19 04:11 Reactive Lymphs % (Man) 0 % 08/06/19 04:11 Monocytes % (Manual) 4.0 % (0.0-7.3) 08/06/19 04:11 Eosinophils % (Manual) 2.0 % (0.0-4.3) 08/06/19 04:11 Basophils % (Manual) 1.0 % (0.0-1.8) 08/06/19 04:11 Metamyelocytes % 1.0 % 08/06/19 04:11 Myelocytes % 0 % 08/06/19 04:11 Promyelocytes % 0 % 08/06/19 04:11 Blast Cells % 0 % 08/06/19 04:11 Nucleated RBC % Not Reportable 08/06/19 04:11 Seg Neutrophils # 9.2 K/mm3 (1.8-7.7) H 07/22/19 05:38 Seg Neutrophils # Man 18.3 K/mm3 (1.8-7.7) H 08/06/19 04:11 Band Neutrophils # 0.2 K/mm3 08/06/19 04:11 Lymphocytes # (Manual) 0.6 K/mm3 (1.2-5.4) L 08/06/19 04:11 Abs React Lymphs (Man) 0.0 K/mm3 08/06/19 04:11 Monocytes # (Manual) 0.8 K/mm3 (0.0-0.8) 08/06/19 04:11 Eosinophils # (Manual) 0.4 K/mm3 (0.0-0.4) 08/06/19 04:11 Basophils # (Manual) 0.2 K/mm3 (0.0-0.1) H 08/06/19 04:11 Metamyelocytes # 0.2 K/mm3 08/06/19 04:11 Myelocytes # 0.0 K/mm3 08/06/19 04:11 Promyelocytes # 0.0 K/mm3 08/06/19 04:11 Blast Cells # 0.0 K/mm3 08/06/19 04:11 WBC Morphology Not Reportable 08/06/19 04:11 Hypersegmented Neuts Not Reportable 08/06/19 04:11 Hyposegmented Neuts Not Reportable 08/06/19 04:11 Hypogranular Neuts Not Reportable 08/06/19 04:11 Smudge Cells Not Reportable 08/06/19 04:11 Toxic Granulation Not Reportable 08/06/19 04:11 Toxic Vacuolation Not Reportable 08/06/19 04:11 Dohle Bodies Not Reportable 08/06/19 04:11 Pelger-Huet Anomaly Not Reportable 08/06/19 04:11 Mendy Rods Not Reportable 08/06/19 04:11 Platelet Estimate Consistent w auto 08/06/19 04:11 Clumped Platelets Not Reportable 08/06/19 04:11 Plt Clumps, EDTA Not Reportable 08/06/19 04:11 Large Platelets Not Reportable 08/06/19 04:11 Giant Platelets Not Reportable 08/06/19 04:11 Platelet Satelliting Not Reportable 08/06/19 04:11 Plt Morphology Comment Not Reportable 08/06/19 04:11 RBC Morphology Not Reportable 08/06/19 04:11 Dimorphic RBCs Not Reportable 08/06/19 04:11 Polychromasia Few 08/06/19 04:11 Hypochromasia Not Reportable 08/06/19 04:11 Poikilocytosis Not Reportable 08/06/19 04:11 Anisocytosis 1+ 08/06/19 04:11 Microcytosis Not Reportable 08/06/19 04:11 Macrocytosis Not Reportable 08/06/19 04:11 Spherocytes Not Reportable 08/06/19 04:11 Pappenheimer Bodies Not Reportable 08/06/19 04:11 Sickle Cells Not Reportable 08/06/19 04:11 Target Cells Not Reportable 08/06/19 04:11 Tear Drop Cells Not Reportable 08/06/19 04:11 Ovalocytes Not Reportable 08/06/19 04:11 Stomatocytes Few 08/01/19 04:57 Helmet Cells Not Reportable 08/06/19 04:11 Altman-[place] Bodies Not Reportable 08/06/19 04:11 [place] Rings Not Reportable 08/06/19 04:11 Guy Cells Not Reportable 08/06/19 04:11 Bite Cells Not Reportable 08/06/19 04:11 Crenated Cell Not Reportable 08/06/19 04:11 Elliptocytes Not Reportable 08/06/19 04:11 Acanthocytes (Spur) Not Reportable 08/06/19 04:11 Rouleaux Not Reportable 08/06/19 04:11 Hemoglobin C Crystals Not Reportable 08/06/19 04:11 Schistocytes Not Reportable 08/06/19 04:11 Malaria parasites Not Reportable 08/06/19 04:11 Jeevan Bodies Not Reportable 08/06/19 04:11 Hem Pathologist Commnt No 08/06/19 04:11 PT 16.0 Sec. (12.2-14.9) H 07/03/19 22:20 INR 1.26 (0.87-1.13) H 07/03/19 22:20 D-Dimer 1142.18 ng/mlDDU (0-234) H 07/08/19 00:45 ABG pH 7.430 pH Units (7.350-7.450) 07/27/19 05:16 ABG pCO2 48.2 mm Hg 07/27/19 05:16 ABG pO2 63.4 mm Hg (80.0-90.0) L 07/27/19 05:16 ABG HCO3 31.3 mmol/L (20.0-26.0) H 07/27/19 05:16 ABG O2 Saturation 92.7 % (95.0-99.0) L 07/27/19 05:16 ABG O2 Content 9.8 (0.0-44) 07/27/19 05:16 ABG Base Excess 6.3 mmol/L (-2.0-3.0) H 07/27/19 05:16 ABG Hemoglobin 7.6 gm/dl (14.0-18.0) L 07/27/19 05:16 ABG Carboxyhemoglobin 1.6 % (0.0-5.0) 07/27/19 05:16 ABG Methemoglobin 0.4 % (0.0-1.5) 07/27/19 05:16 Oxyhemoglobin 90.9 % (95.0-99.0) L 07/27/19 05:16 FiO2 25 % 07/27/19 05:16 Sodium 137 mmol/L (137-145) 08/06/19 04:11 Potassium 3.4 mmol/L (3.6-5.0) L 08/06/19 04:11 Chloride 95.2 mmol/L (98-107) L 08/06/19 04:11 Carbon Dioxide 32 mmol/L (22-30) H 08/06/19 04:11 Anion Gap 13 mmol/L 08/06/19 04:11 BUN 9 mg/dL (9-20) 08/06/19 04:11 Creatinine 0.3 mg/dL (0.8-1.5) L 08/06/19 04:11 Estimated GFR > 60 ml/min 08/06/19 04:11 BUN/Creatinine Ratio 30 % 08/06/19 04:11 Glucose 94 mg/dL (75-100) 08/06/19 04:11 POC Glucose 99 (70-105) 08/02/19 12:18 Osmolality 268 Mosm/kg 07/05/19 04:00 Lactic Acid 3.30 mmol/L (0.7-2.0) H* 07/04/19 07:05 Uric Acid 7.2 mg/dL (3.5-7.6) 07/05/19 04:00 Calcium 8.2 mg/dL (8.4-10.2) L 08/06/19 04:11 Phosphorus 3.60 mg/dL (2.5-4.5) 07/05/19 04:00 Magnesium 1.80 mg/dL (1.7-2.3) 07/11/19 05:14 Iron 9 ug/dL (49-181) L 07/04/19 07:05 TIBC 97 mcg/dL (250-450) L 07/04/19 07:05 Ferritin 839.0 ng/mL (13.0-400.0) H 07/08/19 00:45 Total Bilirubin 0.20 mg/dL (0.1-1.2) 07/04/19 07:05 AST 73 units/L (5-40) H 07/04/19 07:05 ALT 91 units/L (7-56) H 07/04/19 07:05 Alkaline Phosphatase 114 units/L (35-129) 07/04/19 07:05 Ammonia 35.0 umol/L (25-60) 07/03/19 23:58 Lactate Dehydrogenase 277 units/L (91-180) H 07/10/19 04:00 Troponin T 0.013 ng/mL (0.00-0.029) 07/04/19 07:05 C-Reactive Protein 15.10 mg/dL (0.00-1.30) H 07/10/19 04:00 Total Protein 5.5 g/dL (6.3-8.2) L 07/04/19 07:05 Albumin 1.6 g/dL (3.9-5) L 07/31/19 04:42 Albumin/Globulin Ratio 0.6 % 07/04/19 07:05 Prealbumin 0.037 g/L (0.200-0.400) L 07/31/19 04:42 Triglycerides 33 mg/dL (2-149) 07/03/19 19:57 Cholesterol 47 mg/dL (50-199) L 07/03/19 19:57 LDL Cholesterol Direct 25 mg/dL (50-130) L 07/03/19 19:57 HDL Cholesterol 20 mg/dL (40-59) L 07/03/19 19:57 Cholesterol/HDL Ratio 2.35 % 07/03/19 19:57 Procalcitonin 24.82 ng/mL (<0.15) 07/30/19 12:59 TSH 2.170 mlU/mL (0.270-4.200) 07/03/19 22:20 Total Cortisol 28.0 mcg/dL () 07/05/19 10:11 Urine Color Yellow (Yellow) 07/29/19 11:57 Urine Turbidity Clear (Clear) 07/29/19 11:57 Urine pH 7.0 (5.0-7.0) 07/29/19 11:57 Ur Specific [place] 1.012 (1.003-1.030) 07/29/19 11:57 Urine Protein <15 mg/dl mg/dL (Negative) 07/29/19 11:57 Urine Glucose (UA) Neg mg/dL (Negative) 07/29/19 11:57 Urine Ketones Neg mg/dL (Negative) 07/29/19 11:57 Urine Blood Sm (Negative) 07/29/19 11:57 Urine Nitrite Neg (Negative) 07/29/19 11:57 Urine Bilirubin Neg (Negative) 07/29/19 11:57 Urine Urobilinogen 4.0 mg/dL (<2.0) 07/29/19 11:57 Ur Leukocyte Esterase Mod (Negative) 07/29/19 11:57 Urine WBC (Auto) 63.0 /HPF (0.0-6.0) H 07/29/19 11:57 Urine RBC (Auto) 14.0 /HPF (0.0-6.0) 07/29/19 11:57 U Epithel Cells (Auto) < 1.0 /HPF (0-13.0) 07/29/19 11:57 Urine Bacteria (Auto) 1+ /HPF (Negative) 07/29/19 11:57 Urine WBC Clumps Few /HPF 07/03/19 21:13 Urine Mucus Few /HPF 07/03/19 21:13 Urine Osmolality 293 Mosm/kg 07/05/19 08:15 Vancomycin Trough 23.2 ug/mL (5.0-20.0) H 07/05/19 17:54 Urine Opiates Screen Presumptive negative 07/03/19 21:13 Urine Methadone Screen Presumptive negative 07/03/19 21:13 Ur Barbiturates Screen Presumptive negative 07/03/19 21:13 Ur Phencyclidine Scrn Presumptive negative 07/03/19 21:13 Ur Amphetamines Screen Presumptive negative 07/03/19 21:13 U Benzodiazepines Scrn Presumptive negative 07/03/19 21:13 Urine Cocaine Screen Presumptive negative 07/03/19 21:13 U Marijuana (THC) Screen Presumptive negative 07/03/19 21:13 Drugs of Abuse Note Disclamer 07/03/19 21:13 Plasma/Serum Alcohol < 0.01 % (0-0.07) 07/03/19 23:58 Coronavirus (PCR) Positive (Negative) A 07/29/19 Unknown Blood Type B POSITIVE 07/12/19 08:49 Antibody Screen Negative 07/12/19 08:49 Crossmatch See Detail 07/12/19 08:49 Wright/IV: Voiding Method Indwelling Catheter IV Catheter Type [Left Forearm Peripheral IV ] IV Catheter Type [Left Upper Mid-line arm] IV Catheter Type [Right INT / Saline Lock Forearm] IV Catheter Type [Right Hand] INT / Saline Lock IV Catheter Type [Right CVL Femoral] IV Catheter Type [Left INT / Saline Lock External Jugular] Active Medications - Current Medications Current Medications: Generic Name Dose Route Start Last Admin Trade Name Freq PRN Reason Stop Dose Admin Acetaminophen 650 mg 07/04/19 04:24 08/05/19 17:40 Tylenol MA 650 mg Q6H PRN Administration Pain MILD(1-3)/Fever >100.5/MURO Acetaminophen 650 mg 07/10/19 04:00 08/03/19 09:25 Tylenol PO 650 mg Q6HR PRN Administration Pain, Mild (1-3) FEVER Lipase/Protease/Amylase 1 each 07/04/19 10:04 07/20/19 06:15 Pancrewhitley Gilbert 10,500 Unit FEEDTUBE 1 each PRN PRN Administration For Clogged Feeding Tube Aspirin 81 mg 07/05/19 10:00 08/06/19 10:08 Baby Aspirin PO 81 mg QDAY TAMMIE Administration Dextrose 50 ml 07/04/19 06:54 D50w (25gm) Syringe IV Q30MIN PRN Hypoglycemia Protocol Docusate Sodium 100 mg 07/10/19 10:00 08/06/19 10:08 Colace PO 100 mg BID TAMMIE Administration Enoxaparin Sodium 40 mg 07/24/19 10:00 08/06/19 10:10 Enoxaparin SUB-Q 40 mg QDAY@1000 TAMMIE Administration Famotidine 20 mg 07/23/19 22:00 08/06/19 10:08 Pepcid PO 20 mg BID TAMMIE Administration Fentanyl 50 mcg 07/21/19 15:18 Sublimaze IV Q10MIN PRN ANALGESIA Fentanyl 25 mcg 08/03/19 11:00 08/03/19 10:43 Duragesic TD 25 mcg Q3D TAMMIE Administration Folic Acid 1 mg 07/05/19 10:00 08/06/19 10:08 Folvite PO 1 mg QDAY TAMMIE Administration Hydrophilic Ointment 1 applic 07/03/19 19:56 07/05/19 17:42 Vaseline Lip Therapy TP 1 applic Q2HR PRN Administration Dry Lips Norepinephrine 4 mg in 250 mls @ 7.5 mls/hr 07/03/19 23:00 07/20/19 01:00 Levophed Drip 4 Mg/Ns 250 Ml IV Infused TITR TAMMIE Titration Protocol 2 MCG/MIN Piperacillin Sod/Tazobactam Sod 4.5 gm in 100 mls @ 200 mls/hr 08/06/19 12:00 Zosyn/Ns 4.5gm/100ml IV Q6HR [facility] Protocol Insulin Human Lispro 0 unit 07/07/19 12:00 08/06/19 06:04 Humalog SUB-Q Not Given Q6HR [facility] Protocol Levetiracetam 750 mg 07/06/19 11:00 08/06/19 10:08 Keppra FEEDTUBE 750 mg Q12HR TAMMIE Administration Metoprolol Tartrate 5 mg 07/12/19 15:08 07/29/19 07:30 Metoprolol IV 5 mg Q6HR PRN Administration Tachyarrhythmias Multi-Ingred Cream/Lotion/Oil/Oint 1 applic 07/03/19 19:56 07/05/19 13:19 Artificial Tears Ophth Oint OU 1 applic Q4HR PRN Administration Dry Eye(s) Naloxone HCl 0.1 mg 07/04/19 04:24 Naloxone IV Q2MIN PRN Res Rate </= 8 or 02 SAT < 92% Oxycodone/Acetaminophen 1 tab 07/19/19 14:17 Percocet 5/325 PO Q4H PRN Pain, Moderate (4-6) Scopolamine 1 each 07/10/19 11:00 08/03/19 10:41 Transderm-Scop TD 1 each Q3D TAMMIE Administration Simple Syrup 15 ml 07/04/19 10:04 07/10/19 21:56 Simple Syrup FEEDTUBE 15 ml PRN PRN Administration Hypoglycemia Simple Syrup 30 ml 07/04/19 10:04 Simple Syrup FEEDTUBE PRN PRN Hypoglycemia Sodium Bicarbonate 325 mg 07/04/19 10:04 07/20/19 10:20 Sodium Bicarbonate FEEDTUBE 325 mg PRN PRN Administration For Clogged Feeding Tube Sodium Chloride 10 ml 07/04/19 10:00 08/06/19 10:10 Sodium Chloride Flush Syringe 10 Ml IV 10 ml BID TAMMIE Administration Sodium Chloride 10 ml 07/04/19 04:24 Sodium Chloride Flush Syringe 10 Ml IV PRN PRN LINE FLUSH Sodium Hypochlorite 1 applic 07/10/19 14:00 08/06/19 10:09 Dakin's Half Strength TP 1 applicatio BID TAMMIE Administration Nutrition/Malnutrition Assess - Dietary Evaluation Nutrition/Malnutrition Findings: Nutrition Notes Start: 07/04/19 09:17 Freq: Status: Active Protocol: Document 08/01/19 14:30 RAMANDEEP (Rec: 08/01/19 14:31 [facility] SRW- [id number]) Nutrition Notes Initial or Follow up Brief Note Current Diet TF - Nepro at 45ml/hr Labs/Tests K 4.3 Subjective/Other Information RD spoke with RN via phone at 12:35. Pt tolerating TF at goal rate. Nutrition Intervention Follow-Up By: 08/06/19 Additional Comments F/U: stable TF, vent status
[2019-08-06] MEDS: PIPERACIL/TAZOBACTA 4.5/NS 100 4.5 GM/100 ML VIAL IV SCH ×2 (13:35→18:25)
--- NOTE | 2019-08-06 16:19 | Progress Note ---
Assessment and Plan S/p Cardiopulmonary arrest with ROSC Severe Sepsis with septic shock. Acute hypoxemic respiratory failure on MVS COVID-19 positive with elevated markers Bilateral pneumonia Elevated LFTs. Oropharyngeal dysphagia s/p PEG Acute kidney injury Decubitus ulcers-unstageable Moderate protein calorie malnutriton [id number] metabolic acidosis Leukocytosis -improving Thrombocytosis Microcytic anemia Cefepime started by ID today Repeat COVID testing Positive On going fevers and persitent leukocytosis- kwok CT chest, abdomen and pelvic to evalaute for any abscess On cefepime -Continue enoxaparin for VTE prophylaxis- currently has severe thrombocytosis -On Fentanyl infusion, at 1mcg to allow for weaning trials -Will coordinate sedation interruption( RN) and SBT( RT) today to optimize chances of success with weaning trial -ABG, CXR prn - continue airborne, droplet and contact isolation for COVID-19 - continue wound care per WCT - sedation prn for target RASS 0 to -1 - continue to wean supplemental oxygen for target O2 sat's > 90% - Daily SAT's and SBT assessment as tolerated - VAP bundle addressed - continue lung protective strategies - continue bronchodilators with pulmonary hygiene per RT - wean per pulmonary driven protocols otherwise - accuchecks with glycemic control per SSI (While critically ill target blood glucose of 140-180 mg/dL; avoid hypoglycemia) - continue to avoid benzodiazepines, reduce the possibility of delirium - prn analgesia per CPOT score - Maintenance of sleep-wake cycle, avoid delirium - continue enteral nutritional support at goal rate as tolerated - VTE prophylaxis-SCDs/Enoxaparin -Stress ulcer prophylaxis- Famotidine - PT/OT/ROM exercises - continue mobility protocol, off loading and skin assessment for pressure ulcer prevention -Monitor hemodynamics closely -Wright catheter in this critically ill patient with unstageable sacral decubitus ulcer -PEG site care -continue other care per attending / other consultants - discharge planning ongoing concurrently .... Re-evaluate in am & prn CONDITION: CRITICAL PROGNOSIS: GUARDED CODE STATUS: DNAR Called his family to discuss goals of care, wants us to continue to treat aggressively at this time. The high probability of a clinically significant, sudden or life-threatening deterioration of the [respiratory & cardiovascular] system(s) required my full and direct attention, intervention and personal management. The aggregate critical care time was [31] minutes without overlap. Time includes spent on; [x] Data Review and interpretation [x] Patient assessment and monitoring of vital signs [x] Documentation [x] Medication orders and management Subjective Date of service: 08/06/19 Principal diagnosis: Bilateral pneumonia, severe sepsis with septic shock, encephalopathy Interval history: The patient is a 69-year-old male with CVA, hypertension, dementia, schizophrenia, alcohol use disorder was admitted to the emergency room after being brought in by EMS with progressive shortness of breath and unresponsiveness. He was noted to have agonal breathing and a faint pulse requiring CPR. Patient was intubated and brought to the hospital. It seems, patient was on home hospice. Currently, remains critically ill, intubated, on mechanical ventilation. His COVID test resulted positive. Patient is seen today for: s/p cardiopulmonary arrest with ROSC;Ac hypoxemic Resp failure on MVS; Severe sepsis with Shock; Bilateral Pneumonia; POSITIVE coronavirus-19 infection. Seen and examined at bedside; 24hour events reviewed; nursing and respiratory ca re staff consulted; no adverse overnight events reported to me; resting in bed.Temperature spike this morning, with ongoing low grade fevers On MVS . CPAP tried this morning, with PS 14, his respiratory rate was in the high 40s, so he was placed back on full support. Current setting AC-VC 14/500/30%/PEEP 6 ;on fentanyl at 1mcg Tolerating tube feedings via NGT,, Mental status changes persist, will spontaneously open eyes Was seen by Gen Surg in consult for trach placement Repeat COVD testing on 08/02 remains positive Objective Vital Signs - 12hr 08/06/19 08/06/19 08/06/19 04:38 05:00 06:00 Temperature Pulse Rate 92 H 99 H 94 H Respiratory 23 17 Rate Blood Pressure 156/74 156/77 156/77 O2 Sat by Pulse 100 100 100 Oximetry 08/06/19 08/06/19 08/06/19 08:00 10:27 11:50 Temperature 100.1 F H Pulse Rate 112 H 108 H Respiratory 16 Rate Blood Pressure 155/80 151/86 O2 Sat by Pulse 100 99 Oximetry 08/06/19 12:00 Temperature 100.3 F H Pulse Rate Respiratory Rate Blood Pressure O2 Sat by Pulse Oximetry Constitutional: appears uncomfortable, other (eelderly and chronically ill looking AAM, normocephalic with mildly increased respiratory effort at rest) Eyes: non-icteric ENT: oropharynx moist, other (ETT 7.0 23 cm RUTH) Neck: supple, no lymphadenopathy, no JVD Effort: mildly labored Ascultation: Bilateral: diminished breath sounds, rhonchi Percussion: Bilateral: not dull Cardiovascular: regular rate and rhythm, other (S1,S2) Gastrointestinal: normoactive bowel sounds, soft, non-tender, non-distended, other (+ PEG tube with mild TF leakage) Integumentary: decubitus ulcer Extremities: no cyanosis, no edema, pink and warm, pulses normal Neurologic: unable to assess Psychiatric: other (Unable to assess re: AMS) CBC and BMP: 08/08/19 04:41 08/08/19 04:41 ABG, PT/INR, D-dimer: ABG ABG pH 7.430 pH Units (7.350-7.450) 07/27/19 05:16 ABG pCO2 48.2 mm Hg 07/27/19 05:16 ABG pO2 63.4 mm Hg (80.0-90.0) L 07/27/19 05:16 ABG O2 Saturation 92.7 % (95.0-99.0) L 07/27/19 05:16 PT/INR, D-dimer PT 16.0 Sec. (12.2-14.9) H 07/03/19 22:20 INR 1.26 (0.87-1.13) H 07/03/19 22:20 D-Dimer 1142.18 ng/mlDDU (0-234) H 07/08/19 00:45 Abnormal lab findings: Abnormal Labs 07/03/19 07/03/19 07/03/19 19:57 21:10 21:13 WBC RBC Hgb Hct MCV MCH MCHC RDW Plt Count Lymph % (Auto) [place] % (Auto) Lymph # [place] # Baso # Seg Neutrophils % Seg Neuts % (Manual) Lymphocytes % (Manual) Monocytes % (Manual) Nucleated RBC % Seg Neutrophils # Seg Neutrophils # Man Lymphocytes # (Manual) Monocytes # (Manual) Basophils # (Manual) PT INR D-Dimer ABG pH 7.238 L ABG pO2 210.8 H ABG HCO3 15.4 L ABG O2 Saturation 99.2 H ABG Base Excess -11.1 L ABG Hemoglobin 8.0 L Oxyhemoglobin Sodium 124 L Potassium Chloride 92.9 L Carbon Dioxide 10 L BUN 23 H Creatinine 0.5 L Glucose 118 H POC Glucose Lactic Acid Calcium 7.0 L Magnesium Iron TIBC Ferritin AST 70 H ALT 88 H Lactate Dehydrogenase Troponin T 0.032 H C-Reactive Protein Total Protein 5.0 L Albumin 1.8 L Prealbumin Cholesterol 47 L LDL Cholesterol Direct 25 L HDL Cholesterol 20 L Urine WBC (Auto) 12.0 H Vancomycin Trough Coronavirus (PCR) Crossmatch 07/03/19 07/03/19 07/03/19 22:20 22:20 22:20 WBC 30.5 H RBC 2.96 L Hgb 7.7 L Hct 23.9 L MCV 81 L MCH 26 L MCHC RDW 18.6 H Plt Count 459 H Lymph % (Auto) [place] % (Auto) Lymph # [place] # Baso # Seg Neutrophils % Seg Neuts % (Manual) 93.0 H Lymphocytes % (Manual) 0.5 L Monocytes % (Manual) Nucleated RBC % Seg Neutrophils # Seg Neutrophils # Man 28.4 H Lymphocytes # (Manual) 0.2 L Monocytes # (Manual) Basophils # (Manual) PT 16.0 H INR 1.26 H D-Dimer ABG pH ABG pO2 ABG HCO3 ABG O2 Saturation ABG Base Excess ABG Hemoglobin Oxyhemoglobin Sodium Potassium Chloride Carbon Dioxide BUN Creatinine Glucose POC Glucose Lactic Acid 6.90 H* Calcium Magnesium Iron TIBC Ferritin AST ALT Lactate Dehydrogenase Troponin T C-Reactive Protein Total Protein Albumin Prealbumin Cholesterol LDL Cholesterol Direct HDL Cholesterol Urine WBC (Auto) Vancomycin Trough Coronavirus (PCR) Crossmatch 07/03/19 07/04/19 07/04/19 23:58 05:15 07:05 WBC 17.1 H RBC 3.22 L Hgb 8.3 L Hct 25.4 L MCV 79 L MCH 26 L MCHC RDW 18.6 H Plt Count Lymph % (Auto) [place] % (Auto) Lymph # [place] # Baso # Seg Neutrophils % Seg Neuts % (Manual) 74.0 H Lymphocytes % (Manual) 0 L Monocytes % (Manual) Nucleated RBC % Seg Neutrophils # Seg Neutrophils # Man 12.7 H Lymphocytes # (Manual) 0.0 L Monocytes # (Manual) Basophils # (Manual) PT INR D-Dimer ABG pH 7.310 L ABG pO2 73.2 L ABG HCO3 17.8 L ABG O2 Saturation 93.8 L ABG Base Excess -7.7 L ABG Hemoglobin 9.6 L Oxyhemoglobin 92.3 L Sodium Potassium Chloride Carbon Dioxide BUN Creatinine Glucose POC Glucose Lactic Acid 7.10 H* Calcium Magnesium Iron TIBC Ferritin AST ALT Lactate Dehydrogenase Troponin T C-Reactive Protein Total Protein Albumin Prealbumin Cholesterol LDL Cholesterol Direct HDL Cholesterol Urine WBC (Auto) Vancomycin Trough Coronavirus (PCR) Crossmatch 07/04/19 07/04/19 07/04/19 07:05 07:05 07:05 WBC RBC Hgb Hct MCV MCH MCHC RDW Plt Count Lymph % (Auto) [place] % (Auto) Lymph # [place] # Baso # Seg Neutrophils % Seg Neuts % (Manual) Lymphocytes % (Manual) Monocytes % (Manual) Nucleated RBC % Seg Neutrophils # Seg Neutrophils # Man Lymphocytes # (Manual) Monocytes # (Manual) Basophils # (Manual) PT INR D-Dimer ABG pH ABG pO2 ABG HCO3 ABG O2 Saturation ABG Base Excess ABG Hemoglobin Oxyhemoglobin Sodium 120 L Potassium 5.1 H Chloride 90.0 L Carbon Dioxide 14 L BUN 26 H Creatinine 0.5 L Glucose POC Glucose Lactic Acid 3.30 H* Calcium 8.0 L Magnesium Iron 9 L TIBC 97 L Ferritin AST 73 H ALT 91 H Lactate Dehydrogenase Troponin T C-Reactive Protein Total Protein 5.5 L Albumin 2.0 L Prealbumin Cholesterol LDL Cholesterol Direct HDL Cholesterol Urine WBC (Auto) Vancomycin Trough Coronavirus (PCR) Crossmatch 07/04/19 07/04/19 07/04/19 09:39 09:39 09:39 WBC RBC Hgb Hct MCV MCH MCHC RDW Plt Count Lymph % (Auto) [place] % (Auto) Lymph # [place] # Baso # Seg Neutrophils % Seg Neuts % (Manual) Lymphocytes % (Manual) Monocytes % (Manual) Nucleated RBC % Seg Neutrophils # Seg Neutrophils # Man Lymphocytes # (Manual) Monocytes # (Manual) Basophils # (Manual) PT INR D-Dimer 1419.14 H ABG pH ABG pO2 ABG HCO3 ABG O2 Saturation ABG Base Excess ABG Hemoglobin Oxyhemoglobin Sodium Potassium Chloride Carbon Dioxide BUN Creatinine Glucose POC Glucose Lactic Acid Calcium Magnesium Iron TIBC Ferritin 1719.0 H AST ALT Lactate Dehydrogenase 234 H Troponin T C-Reactive Protein 15.50 H Total Protein Albumin Prealbumin Cholesterol LDL Cholesterol Direct HDL Cholesterol Urine WBC (Auto) Vancomycin Trough Coronavirus (PCR) Crossmatch 07/04/19 07/04/19 07/04/19 10:09 18:08 18:28 WBC RBC Hgb Hct MCV MCH MCHC RDW Plt Count Lymph % (Auto) [place] % (Auto) Lymph # [place] # Baso # Seg Neutrophils % Seg Neuts % (Manual) Lymphocytes % (Manual) Monocytes % (Manual) Nucleated RBC % Seg Neutrophils # Seg Neutrophils # Man Lymphocytes # (Manual) Monocytes # (Manual) Basophils # (Manual) PT INR D-Dimer ABG pH ABG pO2 ABG HCO3 ABG O2 Saturation ABG Base Excess ABG Hemoglobin Oxyhemoglobin Sodium 117 L* Potassium 5.6 H Chloride 90.3 L Carbon Dioxide 16 L BUN 28 H Creatinine 0.5 L Glucose 58 L POC Glucose 65 L Lactic Acid Calcium 8.2 L Magnesium Iron TIBC Ferritin AST ALT Lactate Dehydrogenase Troponin T C-Reactive Protein Total Protein Albumin Prealbumin Cholesterol LDL Cholesterol Direct HDL Cholesterol Urine WBC (Auto) Vancomycin Trough Coronavirus (PCR) Positive A Crossmatch 07/04/19 07/04/19 07/04/19 23:45 Unknown Unknown WBC RBC Hgb Hct MCV MCH MCHC RDW Plt Count Lymph % (Auto) [place] % (Auto) Lymph # [place] # Baso # Seg Neutrophils % Seg Neuts % (Manual) Lymphocytes % (Manual) Monocytes % (Manual) Nucleated RBC % Seg Neutrophils # Seg Neutrophils # Man Lymphocytes # (Manual) Monocytes # (Manual) Basophils # (Manual) PT INR D-Dimer 759.77 H ABG pH ABG pO2 ABG HCO3 ABG O2 Saturation ABG Base Excess ABG Hemoglobin Oxyhemoglobin Sodium 122 L Potassium Chloride 93.0 L Carbon Dioxide 19 L BUN 27 H Creatinine 0.5 L Glucose POC Glucose Lactic Acid Calcium 8.3 L Magnesium Iron TIBC Ferritin 1301.0 H AST ALT Lactate Dehydrogenase Troponin T C-Reactive Protein Total Protein Albumin Prealbumin Cholesterol LDL Cholesterol Direct HDL Cholesterol Urine WBC (Auto) Vancomycin Trough Coronavirus (PCR) Crossmatch 07/04/19 07/05/19 07/05/19 Unknown 03:20 04:00 WBC RBC Hgb Hct MCV MCH MCHC RDW Plt Count Lymph % (Auto) [place] % (Auto) Lymph # [place] # Baso # Seg Neutrophils % Seg Neuts % (Manual) Lymphocytes % (Manual) Monocytes % (Manual) Nucleated RBC % Seg Neutrophils # Seg Neutrophils # Man Lymphocytes # (Manual) Monocytes # (Manual) Basophils # (Manual) PT INR D-Dimer ABG pH ABG pO2 60.6 L ABG HCO3 ABG O2 Saturation 93.5 L ABG Base Excess -2.4 L ABG Hemoglobin 6.9 L Oxyhemoglobin 92.0 L Sodium 125 L Potassium Chloride 92.6 L Carbon Dioxide 19 L BUN 24 H Creatinine 0.6 L Glucose POC Glucose Lactic Acid Calcium 8.2 L Magnesium 1.40 L Iron TIBC Ferritin AST ALT Lactate Dehydrogenase 242 H Troponin T C-Reactive Protein 16.70 H Total Protein Albumin Prealbumin Cholesterol LDL Cholesterol Direct HDL Cholesterol Urine WBC (Auto) Vancomycin Trough Coronavirus (PCR) Crossmatch 07/05/19 07/05/19 07/05/19 10:11 16:15 17:54 WBC 46.4 H* RBC 2.77 L Hgb 7.2 L Hct 21.9 L MCV 79 L MCH 26 L MCHC RDW 19.0 H Plt Count Lymph % (Auto) [place] % (Auto) Lymph # [place] # Baso # Seg Neutrophils % Seg Neuts % (Manual) 82.0 H Lymphocytes % (Manual) 1.0 L Monocytes % (Manual) Nucleated RBC % Seg Neutrophils # Seg Neutrophils # Man 38.0 H Lymphocytes # (Manual) 0.5 L Monocytes # (Manual) Basophils # (Manual) PT INR D-Dimer ABG pH ABG pO2 ABG HCO3 ABG O2 Saturation ABG Base Excess ABG Hemoglobin Oxyhemoglobin Sodium Potassium Chloride Carbon Dioxide BUN Creatinine Glucose POC Glucose 69 L Lactic Acid Calcium Magnesium Iron TIBC Ferritin AST ALT Lactate Dehydrogenase Troponin T C-Reactive Protein Total Protein Albumin Prealbumin Cholesterol LDL Cholesterol Direct HDL Cholesterol Urine WBC (Auto) Vancomycin Trough 23.2 H Coronavirus (PCR) Crossmatch 07/05/19 07/06/19 07/06/19 19:58 00:27 00:27 WBC RBC Hgb Hct MCV MCH MCHC RDW Plt Count Lymph % (Auto) [place] % (Auto) Lymph # [place] # Baso # Seg Neutrophils % Seg Neuts % (Manual) Lymphocytes % (Manual) Monocytes % (Manual) Nucleated RBC % Seg Neutrophils # Seg Neutrophils # Man Lymphocytes # (Manual) Monocytes # (Manual) Basophils # (Manual) PT INR D-Dimer 1333.22 H ABG pH ABG pO2 ABG HCO3 ABG O2 Saturation ABG Base Excess ABG Hemoglobin Oxyhemoglobin Sodium 127 L Potassium Chloride Carbon Dioxide BUN Creatinine Glucose POC Glucose Lactic Acid Calcium Magnesium Iron TIBC Ferritin 977.1 H AST ALT Lactate Dehydrogenase Troponin T C-Reactive Protein Total Protein Albumin Prealbumin Cholesterol LDL Cholesterol Direct HDL Cholesterol Urine WBC (Auto) Vancomycin Trough Coronavirus (PCR) Crossmatch 07/06/19 07/06/19 07/06/19 00:27 02:00 02:56 WBC RBC Hgb Hct MCV MCH MCHC RDW Plt Count Lymph % (Auto) [place] % (Auto) Lymph # [place] # Baso # Seg Neutrophils % Seg Neuts % (Manual) Lymphocytes % (Manual) Monocytes % (Manual) Nucleated RBC % Seg Neutrophils # Seg Neutrophils # Man Lymphocytes # (Manual) Monocytes # (Manual) Basophils # (Manual) PT INR D-Dimer ABG pH ABG pO2 70.3 L ABG HCO3 ABG O2 Saturation 94.8 L ABG Base Excess ABG Hemoglobin 8.0 L Oxyhemoglobin 93.2 L Sodium Potassium Chloride Carbon Dioxide BUN Creatinine Glucose POC Glucose 117 H Lactic Acid Calcium Magnesium Iron TIBC Ferritin AST ALT Lactate Dehydrogenase 236 H Troponin T C-Reactive Protein 22.90 H Total Protein Albumin Prealbumin Cholesterol LDL Cholesterol Direct HDL Cholesterol Urine WBC (Auto) Vancomycin Trough Coronavirus (PCR) Crossmatch 07/06/19 07/06/19 07/06/19 03:49 03:49 07:40 WBC 38.8 H RBC 2.51 L Hgb 6.7 L Hct 19.9 L* MCV 79 L MCH 27 L MCHC RDW 19.2 H Plt Count Lymph % (Auto) [place] % (Auto) Lymph # [place] # Baso # Seg Neutrophils % Seg Neuts % (Manual) 90.5 H Lymphocytes % (Manual) 1.0 L Monocytes % (Manual) Nucleated RBC % Seg Neutrophils # Seg Neutrophils # Man 35.1 H Lymphocytes # (Manual) 0.4 L Monocytes # (Manual) Basophils # (Manual) PT INR D-Dimer ABG pH ABG pO2 ABG HCO3 ABG O2 Saturation ABG Base Excess ABG Hemoglobin Oxyhemoglobin Sodium 131 L Potassium Chloride 96.9 L Carbon Dioxide 18 L BUN 23 H Creatinine 0.5 L Glucose POC Glucose Lactic Acid Calcium 8.0 L Magnesium Iron TIBC Ferritin AST ALT Lactate Dehydrogenase Troponin T C-Reactive Protein Total Protein Albumin Prealbumin Cholesterol LDL Cholesterol Direct HDL Cholesterol Urine WBC (Auto) Vancomycin Trough Coronavirus (PCR) Crossmatch See Detail 07/06/19 07/06/19 07/06/19 12:38 14:39 20:00 WBC RBC Hgb Hct MCV MCH MCHC RDW Plt Count Lymph % (Auto) [place] % (Auto) Lymph # [place] # Baso # Seg Neutrophils % Seg Neuts % (Manual) Lymphocytes % (Manual) Monocytes % (Manual) Nucleated RBC % Seg Neutrophils # Seg Neutrophils # Man Lymphocytes # (Manual) Monocytes # (Manual) Basophils # (Manual) PT INR D-Dimer ABG pH ABG pO2 ABG HCO3 ABG O2 Saturation ABG Base Excess ABG Hemoglobin Oxyhemoglobin Sodium Potassium Chloride Carbon Dioxide BUN Creatinine Glucose POC Glucose 112 H 111 H 140 H Lactic Acid Calcium Magnesium Iron TIBC Ferritin AST ALT Lactate Dehydrogenase Troponin T C-Reactive Protein Total Protein Albumin Prealbumin Cholesterol LDL Cholesterol Direct HDL Cholesterol Urine WBC (Auto) Vancomycin Trough Coronavirus (PCR) Crossmatch 07/06/19 07/06/19 07/07/19 22:43 22:56 02:20 WBC RBC Hgb 7.9 L Hct 23.1 L MCV MCH MCHC RDW Plt Count Lymph % (Auto) [place] % (Auto) Lymph # [place] # Baso # Seg Neutrophils % Seg Neuts % (Manual) Lymphocytes % (Manual) Monocytes % (Manual) Nucleated RBC % Seg Neutrophils # Seg Neutrophils # Man Lymphocytes # (Manual) Monocytes # (Manual) Basophils # (Manual) PT INR D-Dimer ABG pH ABG pO2 ABG HCO3 ABG O2 Saturation ABG Base Excess ABG Hemoglobin Oxyhemoglobin Sodium Potassium Chloride Carbon Dioxide BUN Creatinine Glucose POC Glucose 122 H 149 H Lactic Acid Calcium Magnesium Iron TIBC Ferritin AST ALT Lactate Dehydrogenase Troponin T C-Reactive Protein Total Protein Albumin Prealbumin Cholesterol LDL Cholesterol Direct HDL Cholesterol Urine WBC (Auto) Vancomycin Trough Coronavirus (PCR) Crossmatch 07/07/19 07/07/19 07/07/19 04:35 05:27 05:34 WBC 23.1 H RBC 3.00 L Hgb 8.1 L Hct 24.2 L MCV 81 L MCH 27 L MCHC RDW 20.6 H Plt Count Lymph % (Auto) [place] % (Auto) Lymph # [place] # Baso # Seg Neutrophils % Seg Neuts % (Manual) 90.0 H Lymphocytes % (Manual) 2.0 L Monocytes % (Manual) Nucleated RBC % Seg Neutrophils # Seg Neutrophils # Man 20.8 H Lymphocytes # (Manual) 0.5 L Monocytes # (Manual) Basophils # (Manual) PT INR D-Dimer ABG pH ABG pO2 65.8 L ABG HCO3 ABG O2 Saturation 92.2 L ABG Base Excess ABG Hemoglobin 8.3 L Oxyhemoglobin 90.6 L Sodium Potassium Chloride Carbon Dioxide BUN Creatinine Glucose POC Glucose 132 H Lactic Acid Calcium Magnesium Iron TIBC Ferritin AST ALT Lactate Dehydrogenase Troponin T C-Reactive Protein Total Protein Albumin Prealbumin Cholesterol LDL Cholesterol Direct HDL Cholesterol Urine WBC (Auto) Vancomycin Trough Coronavirus (PCR) Crossmatch 07/07/19 07/07/19 07/07/19 05:34 11:50 15:58 WBC RBC Hgb 8.1 L Hct 24.2 L MCV MCH MCHC RDW Plt Count Lymph % (Auto) [place] % (Auto) Lymph # [place] # Baso # Seg Neutrophils % Seg Neuts % (Manual) Lymphocytes % (Manual) Monocytes % (Manual) Nucleated RBC % Seg Neutrophils # Seg Neutrophils # Man Lymphocytes # (Manual) Monocytes # (Manual) Basophils # (Manual) PT INR D-Dimer ABG pH ABG pO2 ABG HCO3 ABG O2 Saturation ABG Base Excess ABG Hemoglobin Oxyhemoglobin Sodium 135 L Potassium 3.3 L Chloride Carbon Dioxide 20 L BUN 27 H Creatinine 0.6 L Glucose 121 H POC Glucose 123 H Lactic Acid Calcium 8.0 L Magnesium Iron TIBC Ferritin AST ALT Lactate Dehydrogenase Troponin T C-Reactive Protein Total Protein Albumin Prealbumin Cholesterol LDL Cholesterol Direct HDL Cholesterol Urine WBC (Auto) Vancomycin Trough Coronavirus (PCR) Crossmatch 07/07/19 07/07/19 07/07/19 17:42 22:00 23:53 WBC RBC Hgb 8.0 L Hct 23.4 L MCV MCH MCHC RDW Plt Count Lymph % (Auto) [place] % (Auto) Lymph # [place] # Baso # Seg Neutrophils % Seg Neuts % (Manual) Lymphocytes % (Manual) Monocytes % (Manual) Nucleated RBC % Seg Neutrophils # Seg Neutrophils # Man Lymphocytes # (Manual) Monocytes # (Manual) Basophils # (Manual) PT INR D-Dimer ABG pH ABG pO2 ABG HCO3 ABG O2 Saturation ABG Base Excess ABG Hemoglobin Oxyhemoglobin Sodium Potassium Chloride Carbon Dioxide BUN Creatinine Glucose POC Glucose 107 H 117 H Lactic Acid Calcium Magnesium Iron TIBC Ferritin AST ALT Lactate Dehydrogenase Troponin T C-Reactive Protein Total Protein Albumin Prealbumin Cholesterol LDL Cholesterol Direct HDL Cholesterol Urine WBC (Auto) Vancomycin Trough Coronavirus (PCR) Crossmatch 07/08/19 07/08/19 07/08/19 00:45 00:45 00:45 WBC RBC Hgb Hct MCV MCH MCHC RDW Plt Count Lymph % (Auto) [place] % (Auto) Lymph # [place] # Baso # Seg Neutrophils % Seg Neuts % (Manual) Lymphocytes % (Manual) Monocytes % (Manual) Nucleated RBC % Seg Neutrophils # Seg Neutrophils # Man Lymphocytes # (Manual) Monocytes # (Manual) Basophils # (Manual) PT INR D-Dimer 1142.18 H ABG pH ABG pO2 ABG HCO3 ABG O2 Saturation ABG Base Excess ABG Hemoglobin Oxyhemoglobin Sodium Potassium Chloride Carbon Dioxide BUN Creatinine Glucose POC Glucose Lactic Acid Calcium Magnesium Iron TIBC Ferritin 839.0 H AST ALT Lactate Dehydrogenase 253 H Troponin T C-Reactive Protein 18.90 H Total Protein Albumin Prealbumin Cholesterol LDL Cholesterol Direct HDL Cholesterol Urine WBC (Auto) Vancomycin Trough Coronavirus (PCR) Crossmatch 07/08/19 07/08/19 07/08/19 04:30 05:11 12:02 WBC RBC Hgb Hct MCV MCH MCHC RDW Plt Count Lymph % (Auto) [place] % (Auto) Lymph # [place] # Baso # Seg Neutrophils % Seg Neuts % (Manual) Lymphocytes % (Manual) Monocytes % (Manual) Nucleated RBC % Seg Neutrophils # Seg Neutrophils # Man Lymphocytes # (Manual) Monocytes # (Manual) Basophils # (Manual) PT INR D-Dimer ABG pH ABG pO2 66.0 L ABG HCO3 ABG O2 Saturation 92.3 L ABG Base Excess ABG Hemoglobin 7.7 L Oxyhemoglobin 90.7 L Sodium Potassium Chloride Carbon Dioxide BUN Creatinine Glucose POC Glucose 108 H 153 H Lactic Acid Calcium Magnesium Iron TIBC Ferritin AST ALT Lactate Dehydrogenase Troponin T C-Reactive Protein Total Protein Albumin Prealbumin Cholesterol LDL Cholesterol Direct HDL Cholesterol Urine WBC (Auto) Vancomycin Trough Coronavirus (PCR) Crossmatch 07/08/19 07/08/19 07/08/19 16:15 18:22 23:35 WBC RBC Hgb Hct MCV MCH MCHC RDW Plt Count Lymph % (Auto) [place] % (Auto) Lymph # [place] # Baso # Seg Neutrophils % Seg Neuts % (Manual) Lymphocytes % (Manual) Monocytes % (Manual) Nucleated RBC % Seg Neutrophils # Seg Neutrophils # Man Lymphocytes # (Manual) Monocytes # (Manual) Basophils # (Manual) PT INR D-Dimer ABG pH ABG pO2 ABG HCO3 ABG O2 Saturation ABG Base Excess ABG Hemoglobin Oxyhemoglobin Sodium 134 L Potassium 3.3 L Chloride Carbon Dioxide 21 L BUN 27 H Creatinine 0.6 L Glucose 146 H POC Glucose 134 H 133 H Lactic Acid Calcium Magnesium Iron TIBC Ferritin AST ALT Lactate Dehydrogenase Troponin T C-Reactive Protein Total Protein Albumin Prealbumin Cholesterol LDL Cholesterol Direct HDL Cholesterol Urine WBC (Auto) Vancomycin Trough Coronavirus (PCR) Crossmatch 07/09/19 07/09/19 07/09/19 04:30 04:30 05:00 WBC 18.9 H RBC 2.77 L Hgb 7.4 L Hct 22.8 L MCV 82 L MCH 27 L MCHC RDW 20.9 H Plt Count 130 L Lymph % (Auto) [place] % (Auto) Lymph # [place] # Baso # Seg Neutrophils % Seg Neuts % (Manual) 84.0 H Lymphocytes % (Manual) 0 L Monocytes % (Manual) Nucleated RBC % Seg Neutrophils # Seg Neutrophils # Man 15.9 H Lymphocytes # (Manual) 0.0 L Monocytes # (Manual) Basophils # (Manual) PT INR D-Dimer ABG pH ABG pO2 ABG HCO3 ABG O2 Saturation ABG Base Excess ABG Hemoglobin Oxyhemoglobin Sodium Potassium 3.1 L Chloride Carbon Dioxide BUN 26 H Creatinine 0.5 L Glucose 125 H POC Glucose 155 H Lactic Acid Calcium Magnesium Iron TIBC Ferritin AST ALT Lactate Dehydrogenase Troponin T C-Reactive Protein Total Protein Albumin Prealbumin Cholesterol LDL Cholesterol Direct HDL Cholesterol Urine WBC (Auto) Vancomycin Trough Coronavirus (PCR) Crossmatch 07/09/19 07/09/19 07/09/19 05:55 12:22 17:50 WBC RBC Hgb Hct MCV MCH MCHC RDW Plt Count Lymph % (Auto) [place] % (Auto) Lymph # [place] # Baso # Seg Neutrophils % Seg Neuts % (Manual) Lymphocytes % (Manual) Monocytes % (Manual) Nucleated RBC % Seg Neutrophils # Seg Neutrophils # Man Lymphocytes # (Manual) Monocytes # (Manual) Basophils # (Manual) PT INR D-Dimer ABG pH ABG pO2 62.8 L ABG HCO3 ABG O2 Saturation ABG Base Excess ABG Hemoglobin 6.1 L Oxyhemoglobin 93.9 L Sodium Potassium Chloride Carbon Dioxide BUN Creatinine Glucose POC Glucose 115 H 133 H Lactic Acid Calcium Magnesium Iron TIBC Ferritin AST ALT Lactate Dehydrogenase Troponin T C-Reactive Protein Total Protein Albumin Prealbumin Cholesterol LDL Cholesterol Direct HDL Cholesterol Urine WBC (Auto) Vancomycin Trough Coronavirus (PCR) Crossmatch 07/10/19 07/10/19 07/10/19 00:38 04:00 04:00 WBC RBC Hgb Hct MCV MCH MCHC RDW Plt Count Lymph % (Auto) [place] % (Auto) Lymph # [place] # Baso # Seg Neutrophils % Seg Neuts % (Manual) Lymphocytes % (Manual) Monocytes % (Manual) Nucleated RBC % Seg Neutrophils # Seg Neutrophils # Man Lymphocytes # (Manual) Monocytes # (Manual) Basophils # (Manual) PT INR D-Dimer ABG pH ABG pO2 ABG HCO3 ABG O2 Saturation ABG Base Excess ABG Hemoglobin Oxyhemoglobin Sodium Potassium Chloride 107.9 H Carbon Dioxide BUN 26 H Creatinine 0.4 L Glucose 137 H POC Glucose 122 H Lactic Acid Calcium Magnesium 1.50 L Iron TIBC Ferritin AST ALT Lactate Dehydrogenase 277 H Troponin T C-Reactive Protein 15.10 H Total Protein Albumin Prealbumin Cholesterol LDL Cholesterol Direct HDL Cholesterol Urine WBC (Auto) Vancomycin Trough Coronavirus (PCR) Crossmatch 07/10/19 07/10/19 07/10/19 04:07 05:21 17:25 WBC RBC Hgb Hct MCV MCH MCHC RDW Plt Count Lymph % (Auto) [place] % (Auto) Lymph # [place] # Baso # Seg Neutrophils % Seg Neuts % (Manual) Lymphocytes % (Manual) Monocytes % (Manual) Nucleated RBC % Seg Neutrophils # Seg Neutrophils # Man Lymphocytes # (Manual) Monocytes # (Manual) Basophils # (Manual) PT INR D-Dimer ABG pH ABG pO2 65.6 L ABG HCO3 26.3 H ABG O2 Saturation ABG Base Excess ABG Hemoglobin 6.7 L Oxyhemoglobin Sodium Potassium Chloride Carbon Dioxide BUN Creatinine Glucose POC Glucose 144 H 113 H Lactic Acid Calcium Magnesium Iron TIBC Ferritin AST ALT Lactate Dehydrogenase Troponin T C-Reactive Protein Total Protein Albumin Prealbumin Cholesterol LDL Cholesterol Direct HDL Cholesterol Urine WBC (Auto) Vancomycin Trough Coronavirus (PCR) Crossmatch 07/11/19 07/11/19 07/11/19 00:07 05:14 05:25 WBC RBC Hgb Hct MCV MCH MCHC RDW Plt Count Lymph % (Auto) [place] % (Auto) Lymph # [place] # Baso # Seg Neutrophils % Seg Neuts % (Manual) Lymphocytes % (Manual) Monocytes % (Manual) Nucleated RBC % Seg Neutrophils # Seg Neutrophils # Man Lymphocytes # (Manual) Monocytes # (Manual) Basophils # (Manual) PT INR D-Dimer ABG pH ABG pO2 ABG HCO3 ABG O2 Saturation ABG Base Excess ABG Hemoglobin 5.8 L Oxyhemoglobin Sodium Potassium Chloride 108.0 H Carbon Dioxide BUN 26 H Creatinine 0.4 L Glucose 110 H POC Glucose 121 H Lactic Acid Calcium Magnesium Iron TIBC Ferritin AST ALT Lactate Dehydrogenase Troponin T C-Reactive Protein Total Protein Albumin Prealbumin Cholesterol LDL Cholesterol Direct HDL Cholesterol Urine WBC (Auto) Vancomycin Trough Coronavirus (PCR) Crossmatch 07/11/19 07/11/19 07/11/19 12:27 18:00 23:42 WBC RBC Hgb Hct MCV MCH MCHC RDW Plt Count Lymph % (Auto) [place] % (Auto) Lymph # [place] # Baso # Seg Neutrophils % Seg Neuts % (Manual) Lymphocytes % (Manual) Monocytes % (Manual) Nucleated RBC % Seg Neutrophils # Seg Neutrophils # Man Lymphocytes # (Manual) Monocytes # (Manual) Basophils # (Manual) PT INR D-Dimer ABG pH ABG pO2 ABG HCO3 ABG O2 Saturation ABG Base Excess ABG Hemoglobin Oxyhemoglobin Sodium Potassium Chloride Carbon Dioxide BUN Creatinine Glucose POC Glucose 158 H 141 H 142 H Lactic Acid Calcium Magnesium Iron TIBC Ferritin AST ALT Lactate Dehydrogenase Troponin T C-Reactive Protein Total Protein Albumin Prealbumin Cholesterol LDL Cholesterol Direct HDL Cholesterol Urine WBC (Auto) Vancomycin Trough Coronavirus (PCR) Crossmatch 07/12/19 07/12/19 07/12/19 04:46 04:46 05:23 WBC 23.6 H RBC 2.51 L Hgb 6.7 L Hct 20.8 L MCV 83 L MCH 27 L MCHC RDW 20.3 H Plt Count Lymph % (Auto) [place] % (Auto) Lymph # [place] # Baso # Seg Neutrophils % Seg Neuts % (Manual) 94.0 H Lymphocytes % (Manual) 4.0 L Monocytes % (Manual) Nucleated RBC % Seg Neutrophils # Seg Neutrophils # Man 22.2 H Lymphocytes # (Manual) 0.9 L Monocytes # (Manual) Basophils # (Manual) PT INR D-Dimer ABG pH ABG pO2 ABG HCO3 ABG O2 Saturation ABG Base Excess ABG Hemoglobin Oxyhemoglobin Sodium Potassium Chloride 107.1 H Carbon Dioxide BUN 25 H Creatinine 0.4 L Glucose 122 H POC Glucose 118 H Lactic Acid Calcium Magnesium Iron TIBC Ferritin AST ALT Lactate Dehydrogenase Troponin T C-Reactive Protein Total Protein Albumin Prealbumin Cholesterol LDL Cholesterol Direct HDL Cholesterol Urine WBC (Auto) Vancomycin Trough Coronavirus (PCR) Crossmatch 07/12/19 07/12/19 07/12/19 08:49 11:36 18:15 WBC RBC Hgb Hct MCV MCH MCHC RDW Plt Count Lymph % (Auto) [place] % (Auto) Lymph # [place] # Baso # Seg Neutrophils % Seg Neuts % (Manual) Lymphocytes % (Manual) Monocytes % (Manual) Nucleated RBC % Seg Neutrophils # Seg Neutrophils # Man Lymphocytes # (Manual) Monocytes # (Manual) Basophils # (Manual) PT INR D-Dimer ABG pH ABG pO2 ABG HCO3 ABG O2 Saturation ABG Base Excess ABG Hemoglobin Oxyhemoglobin Sodium Potassium Chloride Carbon Dioxide BUN Creatinine Glucose POC Glucose 124 H 110 H Lactic Acid Calcium Magnesium Iron TIBC Ferritin AST ALT Lactate Dehydrogenase Troponin T C-Reactive Protein Total Protein Albumin Prealbumin Cholesterol LDL Cholesterol Direct HDL Cholesterol Urine WBC (Auto) Vancomycin Trough Coronavirus (PCR) Crossmatch See Detail 07/12/19 07/13/19 07/13/19 23:16 05:26 06:50 WBC 23.9 H RBC 2.58 L Hgb 6.9 L Hct 21.5 L MCV 83 L MCH 27 L MCHC RDW 19.0 H Plt Count Lymph % (Auto) [place] % (Auto) Lymph # [place] # Baso # Seg Neutrophils % Seg Neuts % (Manual) 96.0 H Lymphocytes % (Manual) 3.0 L Monocytes % (Manual) Nucleated RBC % Seg Neutrophils # Seg Neutrophils # Man 22.9 H Lymphocytes # (Manual) 0.7 L Monocytes # (Manual) Basophils # (Manual) PT INR D-Dimer ABG pH ABG pO2 ABG HCO3 ABG O2 Saturation ABG Base Excess ABG Hemoglobin Oxyhemoglobin Sodium Potassium Chloride Carbon Dioxide BUN Creatinine Glucose POC Glucose 108 H 126 H Lactic Acid Calcium Magnesium Iron TIBC Ferritin AST ALT Lactate Dehydrogenase Troponin T C-Reactive Protein Total Protein Albumin Prealbumin Cholesterol LDL Cholesterol Direct HDL Cholesterol Urine WBC (Auto) Vancomycin Trough Coronavirus (PCR) Crossmatch 07/13/19 07/13/19 07/13/19 06:50 12:38 18:05 WBC RBC Hgb Hct MCV MCH MCHC RDW Plt Count Lymph % (Auto) [place] % (Auto) Lymph # [place] # Baso # Seg Neutrophils % Seg Neuts % (Manual) Lymphocytes % (Manual) Monocytes % (Manual) Nucleated RBC % Seg Neutrophils # Seg Neutrophils # Man Lymphocytes # (Manual) Monocytes # (Manual) Basophils # (Manual) PT INR D-Dimer ABG pH ABG pO2 ABG HCO3 ABG O2 Saturation ABG Base Excess ABG Hemoglobin Oxyhemoglobin Sodium Potassium Chloride Carbon Dioxide BUN 33 H Creatinine 0.5 L Glucose 136 H POC Glucose 164 H 145 H Lactic Acid Calcium Magnesium Iron TIBC Ferritin AST ALT Lactate Dehydrogenase Troponin T C-Reactive Protein Total Protein Albumin Prealbumin Cholesterol LDL Cholesterol Direct HDL Cholesterol Urine WBC (Auto) Vancomycin Trough Coronavirus (PCR) Crossmatch 07/13/19 07/14/19 07/14/19 18:30 00:21 04:40 WBC 22.9 H RBC 2.45 L Hgb 6.6 L Hct 21.1 L MCV MCH 27 L MCHC 31 L RDW 19.2 H Plt Count Lymph % (Auto) [place] % (Auto) Lymph # [place] # Baso # Seg Neutrophils % Seg Neuts % (Manual) 91.0 H Lymphocytes % (Manual) 7.0 L Monocytes % (Manual) Nucleated RBC % Seg Neutrophils # Seg Neutrophils # Man 20.8 H Lymphocytes # (Manual) Monocytes # (Manual) Basophils # (Manual) PT INR D-Dimer ABG pH ABG pO2 58.1 L ABG HCO3 ABG O2 Saturation 88.7 L ABG Base Excess ABG Hemoglobin 7.8 L Oxyhemoglobin 86.8 L Sodium Potassium Chloride Carbon Dioxide BUN Creatinine Glucose POC Glucose 118 H Lactic Acid Calcium Magnesium Iron TIBC Ferritin AST ALT Lactate Dehydrogenase Troponin T C-Reactive Protein Total Protein Albumin Prealbumin Cholesterol LDL Cholesterol Direct HDL Cholesterol Urine WBC (Auto) Vancomycin Trough Coronavirus (PCR) Crossmatch 07/14/19 07/14/19 07/14/19 04:40 05:38 05:45 WBC RBC Hgb Hct MCV MCH MCHC RDW Plt Count Lymph % (Auto) [place] % (Auto) Lymph # [place] # Baso # Seg Neutrophils % Seg Neuts % (Manual) Lymphocytes % (Manual) Monocytes % (Manual) Nucleated RBC % Seg Neutrophils # Seg Neutrophils # Man Lymphocytes # (Manual) Monocytes # (Manual) Basophils # (Manual) PT INR D-Dimer ABG pH 7.230 L ABG pO2 72.1 L ABG HCO3 ABG O2 Saturation 89.3 L ABG Base Excess -2.7 L ABG Hemoglobin 6.7 L Oxyhemoglobin 87.7 L Sodium Potassium Chloride 107.4 H Carbon Dioxide BUN 45 H Creatinine Glucose 101 H POC Glucose 154 H Lactic Acid Calcium Magnesium Iron TIBC Ferritin AST ALT Lactate Dehydrogenase Troponin T C-Reactive Protein Total Protein Albumin Prealbumin Cholesterol LDL Cholesterol Direct HDL Cholesterol Urine WBC (Auto) Vancomycin Trough Coronavirus (PCR) Crossmatch 07/14/19 07/14/19 07/14/19 12:25 18:20 19:01 WBC 22.4 H RBC 2.70 L Hgb 7.5 L Hct 23.3 L MCV MCH MCHC RDW 19.5 H Plt Count Lymph % (Auto) [place] % (Auto) Lymph # [place] # Baso # Seg Neutrophils % Seg Neuts % (Manual) Lymphocytes % (Manual) Monocytes % (Manual) Nucleated RBC % Seg Neutrophils # Seg Neutrophils # Man Lymphocytes # (Manual) Monocytes # (Manual) Basophils # (Manual) PT INR D-Dimer ABG pH ABG pO2 ABG HCO3 ABG O2 Saturation ABG Base Excess ABG Hemoglobin Oxyhemoglobin Sodium Potassium Chloride Carbon Dioxide BUN Creatinine Glucose POC Glucose 136 H 131 H Lactic Acid Calcium Magnesium Iron TIBC Ferritin AST ALT Lactate Dehydrogenase Troponin T C-Reactive Protein Total Protein Albumin Prealbumin Cholesterol LDL Cholesterol Direct HDL Cholesterol Urine WBC (Auto) Vancomycin Trough Coronavirus (PCR) Crossmatch 07/15/19 07/15/19 07/15/19 00:17 04:35 05:18 WBC 20.6 H RBC 2.41 L Hgb 6.8 L Hct 20.7 L MCV MCH MCHC RDW 20.2 H Plt Count Lymph % (Auto) [place] % (Auto) Lymph # [place] # Baso # Seg Neutrophils % Seg Neuts % (Manual) 92.0 H Lymphocytes % (Manual) 5.0 L Monocytes % (Manual) Nucleated RBC % Seg Neutrophils # Seg Neutrophils # Man 19.0 H Lymphocytes # (Manual) 1.0 L Monocytes # (Manual) Basophils # (Manual) PT INR D-Dimer ABG pH 7.342 L ABG pO2 ABG HCO3 ABG O2 Saturation ABG Base Excess -3.1 L ABG Hemoglobin 7.2 L Oxyhemoglobin 94.9 L Sodium Potassium Chloride Carbon Dioxide BUN Creatinine Glucose POC Glucose 116 H Lactic Acid Calcium Magnesium Iron TIBC Ferritin AST ALT Lactate Dehydrogenase Troponin T C-Reactive Protein Total Protein Albumin Prealbumin Cholesterol LDL Cholesterol Direct HDL Cholesterol Urine WBC (Auto) Vancomycin Trough Coronavirus (PCR) Crossmatch 07/15/19 07/15/19 07/15/19 05:18 05:57 11:28 WBC RBC Hgb Hct MCV MCH MCHC RDW Plt Count Lymph % (Auto) [place] % (Auto) Lymph # [place] # Baso # Seg Neutrophils % Seg Neuts % (Manual) Lymphocytes % (Manual) Monocytes % (Manual) Nucleated RBC % Seg Neutrophils # Seg Neutrophils # Man Lymphocytes # (Manual) Monocytes # (Manual) Basophils # (Manual) PT INR D-Dimer ABG pH ABG pO2 ABG HCO3 ABG O2 Saturation ABG Base Excess ABG Hemoglobin Oxyhemoglobin Sodium Potassium Chloride Carbon Dioxide 20 L BUN 59 H Creatinine Glucose 140 H POC Glucose 139 H 117 H Lactic Acid Calcium Magnesium Iron TIBC Ferritin AST ALT Lactate Dehydrogenase Troponin T C-Reactive Protein Total Protein Albumin Prealbumin Cholesterol LDL Cholesterol Direct HDL Cholesterol Urine WBC (Auto) Vancomycin Trough Coronavirus (PCR) Crossmatch 07/15/19 07/16/19 07/16/19 18:13 00:06 03:43 WBC RBC Hgb Hct MCV MCH MCHC RDW Plt Count Lymph % (Auto) [place] % (Auto) Lymph # [place] # Baso # Seg Neutrophils % Seg Neuts % (Manual) Lymphocytes % (Manual) Monocytes % (Manual) Nucleated RBC % Seg Neutrophils # Seg Neutrophils # Man Lymphocytes # (Manual) Monocytes # (Manual) Basophils # (Manual) PT INR D-Dimer ABG pH 7.344 L ABG pO2 68.6 L ABG HCO3 ABG O2 Saturation ABG Base Excess -3.5 L ABG Hemoglobin 6.1 L Oxyhemoglobin 93.3 L Sodium Potassium Chloride Carbon Dioxide BUN Creatinine Glucose POC Glucose 114 H 119 H Lactic Acid Calcium Magnesium Iron TIBC Ferritin AST ALT Lactate Dehydrogenase Troponin T C-Reactive Protein Total Protein Albumin Prealbumin Cholesterol LDL Cholesterol Direct HDL Cholesterol Urine WBC (Auto) Vancomycin Trough Coronavirus (PCR) Crossmatch 07/16/19 07/16/19 07/16/19 04:41 04:41 12:09 WBC 19.6 H RBC 2.81 L Hgb 7.7 L Hct 24.0 L MCV MCH 27 L MCHC RDW 19.4 H Plt Count 514 H Lymph % (Auto) 6.7 L [place] % (Auto) Lymph # [place] # 1.0 H Baso # Seg Neutrophils % 87.0 H Seg Neuts % (Manual) Lymphocytes % (Manual) Monocytes % (Manual) Nucleated RBC % Seg Neutrophils # 17.0 H Seg Neutrophils # Man Lymphocytes # (Manual) Monocytes # (Manual) Basophils # (Manual) PT INR D-Dimer ABG pH ABG pO2 ABG HCO3 ABG O2 Saturation ABG Base Excess ABG Hemoglobin Oxyhemoglobin Sodium Potassium 5.9 H Chloride Carbon Dioxide 21 L BUN 73 H Creatinine 2.0 H Glucose POC Glucose 141 H Lactic Acid Calcium Magnesium Iron TIBC Ferritin AST ALT Lactate Dehydrogenase Troponin T C-Reactive Protein Total Protein Albumin Prealbumin Cholesterol LDL Cholesterol Direct HDL Cholesterol Urine WBC (Auto) Vancomycin Trough Coronavirus (PCR) Crossmatch 07/16/19 07/16/19 07/17/19 16:19 17:45 00:16 WBC RBC Hgb Hct MCV MCH MCHC RDW Plt Count Lymph % (Auto) [place] % (Auto) Lymph # [place] # Baso # Seg Neutrophils % Seg Neuts % (Manual) Lymphocytes % (Manual) Monocytes % (Manual) Nucleated RBC % Seg Neutrophils # Seg Neutrophils # Man Lymphocytes # (Manual) Monocytes # (Manual) Basophils # (Manual) PT INR D-Dimer ABG pH ABG pO2 ABG HCO3 ABG O2 Saturation ABG Base Excess ABG Hemoglobin Oxyhemoglobin Sodium Potassium 5.1 H Chloride Carbon Dioxide 20 L BUN 72 H Creatinine 1.7 H Glucose 128 H POC Glucose 181 H 164 H Lactic Acid Calcium Magnesium Iron TIBC Ferritin AST ALT Lactate Dehydrogenase Troponin T C-Reactive Protein Total Protein Albumin Prealbumin Cholesterol LDL Cholesterol Direct HDL Cholesterol Urine WBC (Auto) Vancomycin Trough Coronavirus (PCR) Crossmatch 07/17/19 07/17/19 07/17/19 04:20 04:39 04:39 WBC 16.1 H RBC 2.92 L Hgb 8.0 L Hct 25.5 L MCV MCH MCHC 31 L RDW 19.7 H Plt Count 564 H Lymph % (Auto) 3.6 L [place] % (Auto) 7.4 H Lymph # 0.6 L [place] # 1.2 H Baso # Seg Neutrophils % 87.5 H Seg Neuts % (Manual) Lymphocytes % (Manual) Monocytes % (Manual) Nucleated RBC % Seg Neutrophils # 14.1 H Seg Neutrophils # Man Lymphocytes # (Manual) Monocytes # (Manual) Basophils # (Manual) PT INR D-Dimer ABG pH 7.231 L ABG pO2 95.3 H ABG HCO3 ABG O2 Saturation ABG Base Excess -5.0 L ABG Hemoglobin 7.9 L Oxyhemoglobin 94.8 L Sodium Potassium Chloride 107.8 H Carbon Dioxide 21 L BUN 68 H Creatinine Glucose POC Glucose Lactic Acid Calcium Magnesium Iron TIBC Ferritin AST ALT Lactate Dehydrogenase Troponin T C-Reactive Protein Total Protein Albumin Prealbumin Cholesterol LDL Cholesterol Direct HDL Cholesterol Urine WBC (Auto) Vancomycin Trough Coronavirus (PCR) Crossmatch 07/17/19 07/17/19 07/17/19 05:28 12:11 18:48 WBC RBC Hgb Hct MCV MCH MCHC RDW Plt Count Lymph % (Auto) [place] % (Auto) Lymph # [place] # Baso # Seg Neutrophils % Seg Neuts % (Manual) Lymphocytes % (Manual) Monocytes % (Manual) Nucleated RBC % Seg Neutrophils # Seg Neutrophils # Man Lymphocytes # (Manual) Monocytes # (Manual) Basophils # (Manual) PT INR D-Dimer ABG pH ABG pO2 ABG HCO3 ABG O2 Saturation ABG Base Excess ABG Hemoglobin Oxyhemoglobin Sodium Potassium Chloride Carbon Dioxide BUN Creatinine Glucose POC Glucose 121 H 125 H 174 H Lactic Acid Calcium Magnesium Iron TIBC Ferritin AST ALT Lactate Dehydrogenase Troponin T C-Reactive Protein Total Protein Albumin Prealbumin Cholesterol LDL Cholesterol Direct HDL Cholesterol Urine WBC (Auto) Vancomycin Trough Coronavirus (PCR) Crossmatch 07/17/19 07/17/19 07/18/19 19:55 23:57 02:30 WBC RBC Hgb Hct MCV MCH MCHC RDW Plt Count Lymph % (Auto) [place] % (Auto) Lymph # [place] # Baso # Seg Neutrophils % Seg Neuts % (Manual) Lymphocytes % (Manual) Monocytes % (Manual) Nucleated RBC % Seg Neutrophils # Seg Neutrophils # Man Lymphocytes # (Manual) Monocytes # (Manual) Basophils # (Manual) PT INR D-Dimer ABG pH 7.344 L 7.294 L ABG pO2 78.5 L 119.2 H ABG HCO3 ABG O2 Saturation ABG Base Excess -3.3 L -2.6 L ABG Hemoglobin 8.6 L 8.1 L Oxyhemoglobin 94.8 L Sodium Potassium Chloride Carbon Dioxide BUN Creatinine Glucose POC Glucose 148 H Lactic Acid Calcium Magnesium Iron TIBC Ferritin AST ALT Lactate Dehydrogenase Troponin T C-Reactive Protein Total Protein Albumin Prealbumin Cholesterol LDL Cholesterol Direct HDL Cholesterol Urine WBC (Auto) Vancomycin Trough Coronavirus (PCR) Crossmatch 07/18/19 07/18/19 07/18/19 04:49 05:22 05:22 WBC 15.9 H RBC 3.00 L Hgb 8.1 L Hct 26.0 L MCV MCH 27 L MCHC 31 L RDW 19.4 H Plt Count 733 H Lymph % (Auto) 6.3 L [place] % (Auto) 7.4 H Lymph # 1.0 L [place] # 1.2 H Baso # 0.2 H Seg Neutrophils % 83.8 H Seg Neuts % (Manual) Lymphocytes % (Manual) Monocytes % (Manual) Nucleated RBC % Seg Neutrophils # 13.3 H Seg Neutrophils # Man Lymphocytes # (Manual) Monocytes # (Manual) Basophils # (Manual) PT INR D-Dimer ABG pH ABG pO2 ABG HCO3 ABG O2 Saturation ABG Base Excess ABG Hemoglobin Oxyhemoglobin Sodium Potassium Chloride 110.6 H Carbon Dioxide BUN 61 H Creatinine Glucose 109 H POC Glucose 116 H Lactic Acid Calcium Magnesium Iron TIBC Ferritin AST ALT Lactate Dehydrogenase Troponin T C-Reactive Protein Total Protein Albumin Prealbumin Cholesterol LDL Cholesterol Direct HDL Cholesterol Urine WBC (Auto) Vancomycin Trough Coronavirus (PCR) Crossmatch 07/18/19 07/18/19 07/18/19 12:23 18:06 22:20 WBC RBC Hgb Hct MCV MCH MCHC RDW Plt Count Lymph % (Auto) [place] % (Auto) Lymph # [place] # Baso # Seg Neutrophils % Seg Neuts % (Manual) Lymphocytes % (Manual) Monocytes % (Manual) Nucleated RBC % Seg Neutrophils # Seg Neutrophils # Man Lymphocytes # (Manual) Monocytes # (Manual) Basophils # (Manual) PT INR D-Dimer ABG pH 7.338 L ABG pO2 135.1 H ABG HCO3 ABG O2 Saturation ABG Base Excess ABG Hemoglobin 9.2 L Oxyhemoglobin Sodium Potassium Chloride Carbon Dioxide BUN Creatinine Glucose POC Glucose 114 H 113 H Lactic Acid Calcium Magnesium Iron TIBC Ferritin AST ALT Lactate Dehydrogenase Troponin T C-Reactive Protein Total Protein Albumin Prealbumin Cholesterol LDL Cholesterol Direct HDL Cholesterol Urine WBC (Auto) Vancomycin Trough Coronavirus (PCR) Crossmatch 07/18/19 07/19/19 07/19/19 23:33 03:45 05:18 WBC RBC Hgb Hct MCV MCH MCHC RDW Plt Count Lymph % (Auto) [place] % (Auto) Lymph # [place] # Baso # Seg Neutrophils % Seg Neuts % (Manual) Lymphocytes % (Manual) Monocytes % (Manual) Nucleated RBC % Seg Neutrophils # Seg Neutrophils # Man Lymphocytes # (Manual) Monocytes # (Manual) Basophils # (Manual) PT INR D-Dimer ABG pH 7.342 L ABG pO2 95.0 H ABG HCO3 ABG O2 Saturation ABG Base Excess ABG Hemoglobin 8.5 L Oxyhemoglobin Sodium Potassium Chloride Carbon Dioxide BUN Creatinine Glucose POC Glucose 125 H 111 H Lactic Acid Calcium Magnesium Iron TIBC Ferritin AST ALT Lactate Dehydrogenase Troponin T C-Reactive Protein Total Protein Albumin Prealbumin Cholesterol LDL Cholesterol Direct HDL Cholesterol Urine WBC (Auto) Vancomycin Trough Coronavirus (PCR) Crossmatch 07/19/19 07/19/19 07/19/19 08:45 08:45 11:47 WBC 15.9 H RBC 3.31 L Hgb 9.1 L Hct 28.4 L MCV MCH 27 L MCHC RDW 19.1 H Plt Count 858 H Lymph % (Auto) 4.9 L [place] % (Auto) 8.1 H Lymph # 0.8 L [place] # 1.3 H Baso # Seg Neutrophils % 85.5 H Seg Neuts % (Manual) Lymphocytes % (Manual) Monocytes % (Manual) Nucleated RBC % Seg Neutrophils # 13.6 H Seg Neutrophils # Man Lymphocytes # (Manual) Monocytes # (Manual) Basophils # (Manual) PT INR D-Dimer ABG pH ABG pO2 ABG HCO3 ABG O2 Saturation ABG Base Excess ABG Hemoglobin Oxyhemoglobin Sodium Potassium Chloride 111.6 H Carbon Dioxide BUN 50 H Creatinine 0.7 L Glucose 118 H POC Glucose 114 H Lactic Acid Calcium Magnesium Iron TIBC Ferritin AST ALT Lactate Dehydrogenase Troponin T C-Reactive Protein Total Protein Albumin Prealbumin Cholesterol LDL Cholesterol Direct HDL Cholesterol Urine WBC (Auto) Vancomycin Trough Coronavirus (PCR) Crossmatch 07/19/19 07/19/19 07/20/19 18:25 23:44 04:39 WBC RBC Hgb Hct MCV MCH MCHC RDW Plt Count Lymph % (Auto) [place] % (Auto) Lymph # [place] # Baso # Seg Neutrophils % Seg Neuts % (Manual) Lymphocytes % (Manual) Monocytes % (Manual) Nucleated RBC % Seg Neutrophils # Seg Neutrophils # Man Lymphocytes # (Manual) Monocytes # (Manual) Basophils # (Manual) PT INR D-Dimer ABG pH ABG pO2 ABG HCO3 ABG O2 Saturation ABG Base Excess ABG Hemoglobin Oxyhemoglobin Sodium Potassium Chloride 110.3 H Carbon Dioxide BUN 44 H Creatinine 0.6 L Glucose 120 H POC Glucose 115 H 117 H Lactic Acid Calcium Magnesium Iron TIBC Ferritin AST ALT Lactate Dehydrogenase Troponin T C-Reactive Protein Total Protein Albumin Prealbumin Cholesterol LDL Cholesterol Direct HDL Cholesterol Urine WBC (Auto) Vancomycin Trough Coronavirus (PCR) Crossmatch 07/20/19 07/21/19 07/21/19 05:30 11:59 17:40 WBC RBC Hgb Hct MCV MCH MCHC RDW Plt Count Lymph % (Auto) [place] % (Auto) Lymph # [place] # Baso # Seg Neutrophils % Seg Neuts % (Manual) Lymphocytes % (Manual) Monocytes % (Manual) Nucleated RBC % Seg Neutrophils # Seg Neutrophils # Man Lymphocytes # (Manual) Monocytes # (Manual) Basophils # (Manual) PT INR D-Dimer ABG pH ABG pO2 ABG HCO3 ABG O2 Saturation ABG Base Excess ABG Hemoglobin Oxyhemoglobin Sodium Potassium Chloride Carbon Dioxide BUN Creatinine Glucose POC Glucose 131 H 122 H 125 H Lactic Acid Calcium Magnesium Iron TIBC Ferritin AST ALT Lactate Dehydrogenase Troponin T C-Reactive Protein Total Protein Albumin Prealbumin Cholesterol LDL Cholesterol Direct HDL Cholesterol Urine WBC (Auto) Vancomycin Trough Coronavirus (PCR) Crossmatch 07/22/19 07/22/19 07/22/19 05:38 05:38 12:29 WBC 12.6 H RBC 3.19 L Hgb 8.9 L Hct 27.5 L MCV MCH MCHC RDW 18.9 H Plt Count 1101 H* Lymph % (Auto) [place] % (Auto) 12.2 H Lymph # [place] # 1.5 H Baso # Seg Neutrophils % 72.8 H Seg Neuts % (Manual) 76.0 H Lymphocytes % (Manual) 7.0 L Monocytes % (Manual) 14.0 H Nucleated RBC % 1.0 H Seg Neutrophils # 9.2 H Seg Neutrophils # Man 9.6 H Lymphocytes # (Manual) 0.9 L Monocytes # (Manual) 1.8 H Basophils # (Manual) PT INR D-Dimer ABG pH ABG pO2 ABG HCO3 ABG O2 Saturation ABG Base Excess ABG Hemoglobin Oxyhemoglobin Sodium Potassium 3.4 L Chloride Carbon Dioxide BUN 29 H Creatinine 0.5 L Glucose POC Glucose 116 H Lactic Acid Calcium Magnesium Iron TIBC Ferritin AST ALT Lactate Dehydrogenase Troponin T C-Reactive Protein Total Protein Albumin Prealbumin Cholesterol LDL Cholesterol Direct HDL Cholesterol Urine WBC (Auto) Vancomycin Trough Coronavirus (PCR) Crossmatch 07/22/19 07/22/19 07/23/19 18:20 23:51 04:52 WBC RBC Hgb Hct MCV MCH MCHC RDW Plt Count Lymph % (Auto) [place] % (Auto) Lymph # [place] # Baso # Seg Neutrophils % Seg Neuts % (Manual) Lymphocytes % (Manual) Monocytes % (Manual) Nucleated RBC % Seg Neutrophils # Seg Neutrophils # Man Lymphocytes # (Manual) Monocytes # (Manual) Basophils # (Manual) PT INR D-Dimer ABG pH ABG pO2 ABG HCO3 ABG O2 Saturation ABG Base Excess ABG Hemoglobin Oxyhemoglobin Sodium Potassium Chloride Carbon Dioxide BUN 24 H Creatinine 0.4 L Glucose POC Glucose 107 H 110 H Lactic Acid Calcium Magnesium Iron TIBC Ferritin AST ALT Lactate Dehydrogenase Troponin T C-Reactive Protein Total Protein Albumin Prealbumin Cholesterol LDL Cholesterol Direct HDL Cholesterol Urine WBC (Auto) Vancomycin Trough Coronavirus (PCR) Crossmatch 07/23/19 07/23/19 07/24/19 06:00 23:15 04:40 WBC RBC Hgb Hct MCV MCH MCHC RDW Plt Count Lymph % (Auto) [place] % (Auto) Lymph # [place] # Baso # Seg Neutrophils % Seg Neuts % (Manual) Lymphocytes % (Manual) Monocytes % (Manual) Nucleated RBC % Seg Neutrophils # Seg Neutrophils # Man Lymphocytes # (Manual) Monocytes # (Manual) Basophils # (Manual) PT INR D-Dimer ABG pH ABG pO2 73.5 L ABG HCO3 27.0 H 28.5 H ABG O2 Saturation 94.5 L ABG Base Excess ABG Hemoglobin 9.4 L 8.9 L Oxyhemoglobin 94.0 L 92.7 L Sodium Potassium Chloride Carbon Dioxide BUN Creatinine Glucose POC Glucose 117 H Lactic Acid Calcium Magnesium Iron TIBC Ferritin AST ALT Lactate Dehydrogenase Troponin T C-Reactive Protein Total Protein Albumin Prealbumin Cholesterol LDL Cholesterol Direct HDL Cholesterol Urine WBC (Auto) Vancomycin Trough Coronavirus (PCR) Crossmatch 07/24/19 07/24/19 07/25/19 05:25 12:06 00:16 WBC RBC Hgb Hct MCV MCH MCHC RDW Plt Count Lymph % (Auto) [place] % (Auto) Lymph # [place] # Baso # Seg Neutrophils % Seg Neuts % (Manual) Lymphocytes % (Manual) Monocytes % (Manual) Nucleated RBC % Seg Neutrophils # Seg Neutrophils # Man Lymphocytes # (Manual) Monocytes # (Manual) Basophils # (Manual) PT INR D-Dimer ABG pH ABG pO2 ABG HCO3 ABG O2 Saturation ABG Base Excess ABG Hemoglobin Oxyhemoglobin Sodium Potassium Chloride Carbon Dioxide BUN Creatinine Glucose POC Glucose 114 H 108 H 106 H Lactic Acid Calcium Magnesium Iron TIBC Ferritin AST ALT Lactate Dehydrogenase Troponin T C-Reactive Protein Total Protein Albumin Prealbumin Cholesterol LDL Cholesterol Direct HDL Cholesterol Urine WBC (Auto) Vancomycin Trough Coronavirus (PCR) Crossmatch 07/25/19 07/25/19 07/25/19 05:14 05:14 05:17 WBC 17.8 H RBC 3.32 L Hgb 9.2 L Hct 28.6 L MCV MCH MCHC RDW 19.9 H Plt Count 994 H Lymph % (Auto) [place] % (Auto) Lymph # [place] # Baso # Seg Neutrophils % Seg Neuts % (Manual) 82.0 H Lymphocytes % (Manual) 5.0 L Monocytes % (Manual) Nucleated RBC % Seg Neutrophils # Seg Neutrophils # Man 14.6 H Lymphocytes # (Manual) 0.9 L Monocytes # (Manual) 1.2 H Basophils # (Manual) PT INR D-Dimer ABG pH ABG pO2 ABG HCO3 ABG O2 Saturation ABG Base Excess ABG Hemoglobin Oxyhemoglobin Sodium Potassium Chloride Carbon Dioxide BUN Creatinine 0.4 L Glucose 110 H POC Glucose 107 H Lactic Acid Calcium Magnesium Iron TIBC Ferritin AST ALT Lactate Dehydrogenase Troponin T C-Reactive Protein Total Protein Albumin Prealbumin Cholesterol LDL Cholesterol Direct HDL Cholesterol Urine WBC (Auto) Vancomycin Trough Coronavirus (PCR) Crossmatch 07/25/19 07/25/19 07/26/19 11:55 23:49 06:01 WBC RBC Hgb Hct MCV MCH MCHC RDW Plt Count Lymph % (Auto) [place] % (Auto) Lymph # [place] # Baso # Seg Neutrophils % Seg Neuts % (Manual) Lymphocytes % (Manual) Monocytes % (Manual) Nucleated RBC % Seg Neutrophils # Seg Neutrophils # Man Lymphocytes # (Manual) Monocytes # (Manual) Basophils # (Manual) PT INR D-Dimer ABG pH ABG pO2 ABG HCO3 ABG O2 Saturation ABG Base Excess ABG Hemoglobin Oxyhemoglobin Sodium Potassium Chloride Carbon Dioxide BUN Creatinine Glucose POC Glucose 123 H 118 H 106 H Lactic Acid Calcium Magnesium Iron TIBC Ferritin AST ALT Lactate Dehydrogenase Troponin T C-Reactive Protein Total Protein Albumin Prealbumin Cholesterol LDL Cholesterol Direct HDL Cholesterol Urine WBC (Auto) Vancomycin Trough Coronavirus (PCR) Crossmatch 07/26/19 07/27/19 07/27/19 17:02 00:28 05:16 WBC RBC Hgb Hct MCV MCH MCHC RDW Plt Count Lymph % (Auto) [place] % (Auto) Lymph # [place] # Baso # Seg Neutrophils % Seg Neuts % (Manual) Lymphocytes % (Manual) Monocytes % (Manual) Nucleated RBC % Seg Neutrophils # Seg Neutrophils # Man Lymphocytes # (Manual) Monocytes # (Manual) Basophils # (Manual) PT INR D-Dimer ABG pH ABG pO2 63.4 L ABG HCO3 31.3 H ABG O2 Saturation 92.7 L ABG Base Excess 6.3 H ABG Hemoglobin 7.6 L Oxyhemoglobin 90.9 L Sodium Potassium Chloride Carbon Dioxide BUN Creatinine Glucose POC Glucose 116 H 158 H Lactic Acid Calcium Magnesium Iron TIBC Ferritin AST ALT Lactate Dehydrogenase Troponin T C-Reactive Protein Total Protein Albumin Prealbumin Cholesterol LDL Cholesterol Direct HDL Cholesterol Urine WBC (Auto) Vancomycin Trough Coronavirus (PCR) Crossmatch 07/28/19 07/28/19 07/28/19 10:13 10:13 23:54 WBC 18.5 H RBC 3.20 L Hgb 8.8 L Hct 26.8 L MCV MCH 27 L MCHC RDW 19.9 H Plt Count 730 H Lymph % (Auto) [place] % (Auto) Lymph # [place] # Baso # Seg Neutrophils % Seg Neuts % (Manual) Lymphocytes % (Manual) Monocytes % (Manual) Nucleated RBC % Seg Neutrophils # Seg Neutrophils # Man Lymphocytes # (Manual) Monocytes # (Manual) Basophils # (Manual) PT INR D-Dimer ABG pH ABG pO2 ABG HCO3 ABG O2 Saturation ABG Base Excess ABG Hemoglobin Oxyhemoglobin Sodium Potassium 3.2 L Chloride 97.5 L Carbon Dioxide 31 H BUN Creatinine 0.5 L Glucose POC Glucose 120 H Lactic Acid Calcium Magnesium Iron TIBC Ferritin AST ALT Lactate Dehydrogenase Troponin T C-Reactive Protein Total Protein Albumin Prealbumin Cholesterol LDL Cholesterol Direct HDL Cholesterol Urine WBC (Auto) Vancomycin Trough Coronavirus (PCR) Crossmatch 07/29/19 07/29/19 07/29/19 11:57 17:43 Unknown WBC RBC Hgb Hct MCV MCH MCHC RDW Plt Count Lymph % (Auto) [place] % (Auto) Lymph # [place] # Baso # Seg Neutrophils % Seg Neuts % (Manual) Lymphocytes % (Manual) Monocytes % (Manual) Nucleated RBC % Seg Neutrophils # Seg Neutrophils # Man Lymphocytes # (Manual) Monocytes # (Manual) Basophils # (Manual) PT INR D-Dimer ABG pH ABG pO2 ABG HCO3 ABG O2 Saturation ABG Base Excess ABG Hemoglobin Oxyhemoglobin Sodium Potassium Chloride Carbon Dioxide BUN Creatinine Glucose POC Glucose 112 H Lactic Acid Calcium Magnesium Iron TIBC Ferritin AST ALT Lactate Dehydrogenase Troponin T C-Reactive Protein Total Protein Albumin Prealbumin Cholesterol LDL Cholesterol Direct HDL Cholesterol Urine WBC (Auto) 63.0 H Vancomycin Trough Coronavirus (PCR) Positive A Crossmatch 07/30/19 07/30/19 07/30/19 00:20 04:35 04:35 WBC 24.3 H RBC 3.12 L Hgb 8.5 L Hct 26.3 L MCV MCH 27 L MCHC RDW 20.2 H Plt Count 550 H Lymph % (Auto) [place] % (Auto) Lymph # [place] # Baso # Seg Neutrophils % Seg Neuts % (Manual) Lymphocytes % (Manual) Monocytes % (Manual) Nucleated RBC % Seg Neutrophils # Seg Neutrophils # Man Lymphocytes # (Manual) Monocytes # (Manual) Basophils # (Manual) PT INR D-Dimer ABG pH ABG pO2 ABG HCO3 ABG O2 Saturation ABG Base Excess ABG Hemoglobin Oxyhemoglobin Sodium Potassium 3.0 L Chloride 96.3 L Carbon Dioxide 32 H BUN Creatinine 0.5 L Glucose POC Glucose 106 H Lactic Acid Calcium Magnesium Iron TIBC Ferritin AST ALT Lactate Dehydrogenase Troponin T C-Reactive Protein Total Protein Albumin Prealbumin Cholesterol LDL Cholesterol Direct HDL Cholesterol Urine WBC (Auto) Vancomycin Trough Coronavirus (PCR) Crossmatch 07/31/19 07/31/19 07/31/19 04:42 04:42 11:33 WBC 23.8 H RBC 3.10 L Hgb 8.4 L Hct 26.1 L MCV MCH 27 L MCHC RDW 19.6 H Plt Count 561 H Lymph % (Auto) [place] % (Auto) Lymph # [place] # Baso # Seg Neutrophils % Seg Neuts % (Manual) Lymphocytes % (Manual) Monocytes % (Manual) Nucleated RBC % Seg Neutrophils # Seg Neutrophils # Man Lymphocytes # (Manual) Monocytes # (Manual) Basophils # (Manual) PT INR D-Dimer ABG pH ABG pO2 ABG HCO3 ABG O2 Saturation ABG Base Excess ABG Hemoglobin Oxyhemoglobin Sodium 135 L Potassium Chloride 93.9 L Carbon Dioxide 32 H BUN Creatinine 0.4 L Glucose POC Glucose 116 H Lactic Acid Calcium Magnesium Iron TIBC Ferritin AST ALT Lactate Dehydrogenase Troponin T C-Reactive Protein Total Protein Albumin 1.6 L Prealbumin 0.037 L Cholesterol LDL Cholesterol Direct HDL Cholesterol Urine WBC (Auto) Vancomycin Trough Coronavirus (PCR) Crossmatch 07/31/19 08/01/19 08/01/19 23:33 04:57 04:57 WBC 26.7 H RBC 3.12 L Hgb 8.5 L Hct 26.3 L MCV MCH 27 L MCHC RDW 19.2 H Plt Count 602 H Lymph % (Auto) [place] % (Auto) Lymph # [place] # Baso # Seg Neutrophils % Seg Neuts % (Manual) 93.0 H Lymphocytes % (Manual) 2.0 L Monocytes % (Manual) Nucleated RBC % Seg Neutrophils # Seg Neutrophils # Man 24.8 H Lymphocytes # (Manual) 0.5 L Monocytes # (Manual) 1.1 H Basophils # (Manual) PT INR D-Dimer ABG pH ABG pO2 ABG HCO3 ABG O2 Saturation ABG Base Excess ABG Hemoglobin Oxyhemoglobin Sodium 132 L Potassium Chloride 93.8 L Carbon Dioxide 31 H BUN Creatinine 0.3 L Glucose POC Glucose 148 H Lactic Acid Calcium 8.1 L Magnesium Iron TIBC Ferritin AST ALT Lactate Dehydrogenase Troponin T C-Reactive Protein Total Protein Albumin Prealbumin Cholesterol LDL Cholesterol Direct HDL Cholesterol Urine WBC (Auto) Vancomycin Trough Coronavirus (PCR) Crossmatch 08/01/19 08/02/19 08/02/19 12:16 00:22 05:24 WBC RBC Hgb Hct MCV MCH MCHC RDW Plt Count Lymph % (Auto) [place] % (Auto) Lymph # [place] # Baso # Seg Neutrophils % Seg Neuts % (Manual) Lymphocytes % (Manual) Monocytes % (Manual) Nucleated RBC % Seg Neutrophils # Seg Neutrophils # Man Lymphocytes # (Manual) Monocytes # (Manual) Basophils # (Manual) PT INR D-Dimer ABG pH ABG pO2 ABG HCO3 ABG O2 Saturation ABG Base Excess ABG Hemoglobin Oxyhemoglobin Sodium Potassium Chloride Carbon Dioxide BUN Creatinine Glucose POC Glucose 120 H 119 H 113 H Lactic Acid Calcium Magnesium Iron TIBC Ferritin AST ALT Lactate Dehydrogenase Troponin T C-Reactive Protein Total Protein Albumin Prealbumin Cholesterol LDL Cholesterol Direct HDL Cholesterol Urine WBC (Auto) Vancomycin Trough Coronavirus (PCR) Crossmatch 08/04/19 08/04/19 08/05/19 05:38 05:38 04:58 WBC 26.1 H 21.0 H RBC 2.77 L 2.63 L Hgb 7.5 L 7.2 L Hct 23.2 L 21.9 L MCV 83 L MCH 27 L 27 L MCHC RDW 19.2 H 18.9 H Plt Count 648 H 691 H Lymph % (Auto) [place] % (Auto) Lymph # [place] # Baso # Seg Neutrophils % Seg Neuts % (Manual) 90.5 H 86.0 H Lymphocytes % (Manual) 3.5 L 3.0 L Monocytes % (Manual) 10.0 H Nucleated RBC % Seg Neutrophils # Seg Neutrophils # Man 23.6 H 18.1 H Lymphocytes # (Manual) 0.9 L 0.6 L Monocytes # (Manual) 1.2 H 2.1 H Basophils # (Manual) PT INR D-Dimer ABG pH ABG pO2 ABG HCO3 ABG O2 Saturation ABG Base Excess ABG Hemoglobin Oxyhemoglobin Sodium 132 L Potassium 3.4 L D Chloride 92.7 L Carbon Dioxide 33 H BUN Creatinine 0.2 L Glucose POC Glucose Lactic Acid Calcium 8.1 L Magnesium Iron TIBC Ferritin AST ALT Lactate Dehydrogenase Troponin T C-Reactive Protein Total Protein Albumin Prealbumin Cholesterol LDL Cholesterol Direct HDL Cholesterol Urine WBC (Auto) Vancomycin Trough Coronavirus (PCR) Crossmatch 08/05/19 08/06/19 08/06/19 04:58 04:11 04:11 WBC 20.8 H RBC 2.80 L Hgb 7.6 L Hct 23.5 L MCV MCH 27 L MCHC RDW 19.0 H Plt Count 723 H Lymph % (Auto) [place] % (Auto) Lymph # [place] # Baso # Seg Neutrophils % Seg Neuts % (Manual) 88.0 H Lymphocytes % (Manual) 3.0 L Monocytes % (Manual) Nucleated RBC % Seg Neutrophils # Seg Neutrophils # Man 18.3 H Lymphocytes # (Manual) 0.6 L Monocytes # (Manual) Basophils # (Manual) 0.2 H PT INR D-Dimer ABG pH ABG pO2 ABG HCO3 ABG O2 Saturation ABG Base Excess ABG Hemoglobin Oxyhemoglobin Sodium 134 L Potassium 3.2 L 3.4 L Chloride 93.2 L 95.2 L Carbon Dioxide 34 H 32 H BUN 8 L Creatinine 0.3 L 0.3 L Glucose POC Glucose Lactic Acid Calcium 8.1 L 8.2 L Magnesium Iron TIBC Ferritin AST ALT Lactate Dehydrogenase Troponin T C-Reactive Protein Total Protein Albumin Prealbumin Cholesterol LDL Cholesterol Direct HDL Cholesterol Urine WBC (Auto) Vancomycin Trough Coronavirus (PCR) Crossmatch Allied health notes reviewed: RT
[2019-08-06] MEDS: ACETAMINOPHEN 325 MG/10.15 ML ORAL LIQD UNIT DOSE PO PRN ×2 (18:24→23:43)
[2019-08-07] MEDS: PIPERACIL/TAZOBACTA 4.5/NS 100 4.5 GM/100 ML VIAL IV SCH ×4 (00:05→17:26)
[2019-08-07] MEDS: INSULIN LISPRO 100 UNIT/ML SUB-Q SCH ×4 (00:53→17:34)
[2019-08-07 05:39] LABS: Hematocrit 22.2 % (35.5-45.6); Hemoglobin 7.1 gm/dl (11.8-15.2); Mean Corpuscular HGB Conc 32 % (32-34); Mean Corpuscular Volume 83 fl (84-94); Platelet Count 650 K/mm3 (140-440); Red Blood Count 2.69 M/mm3 (3.65-5.03); Red Cell Distribution Width 19.1 % (13.2-15.2)
[2019-08-07 06:00] LABS: BUN/Creatinine Ratio 28; Blood Urea Nitrogen 11 mg/dL (9-20); Calcium 7.7 mg/dL (8.4-10.2); Hemolysis Index 1
[2019-08-07 06:29] LABS: Basophils % (Manual) 0 % (0.0-1.8); Eosinophils % (Manual) 0 % (0.0-4.3); Total Cells Counted 100
[2019-08-07 06:30] LABS: Anisocytosis Few; Hypochromasia 1+; Ovalocytes Few; Platelet Estimate Consistent w Auto; Schistocytes Few
--- NOTE | 2019-08-07 09:27 | Progress Note ---
Assessment and Plan Cultures: 07/03/2019 urine culture: No growth 07/03/2019 Tracheal aspirate: E.coli 07/29/2019 urine culture: neg 07/30/2019 blood culture: no growth tracheal asp + Pseudomonas A/P: 69-year-old male with CVA, hypertension, dementia, schizophrenia, alcohol use disorder was admitted to the emergency room after being brought in by EMS with progressive shortness of breath and unresponsiveness. He was noted to have agonal breathing and a faint pulse requiring CPR. It seems patient was on hospice recently, prior to admission. #Shock, likely septic: shock resolved, remains off pressors. Worsening fever and leukocytosis at 30K ? bacterial pneumonia vs sacral decubitus infection. Very high procal=24 on 07/29 most recent 0.5 o #Presumed VAP vs colonization: Sputum +Pseudomonas. repeat CXR bilateral interstitial infiltrates. #Penile/scrotal and buttocks wounds: ?cellulitis #Sacral decubitus: worsening on last exam ? necrotic #UTI: per documentation initial carroll placed on 07/03, exchanged on 07/31. #Severe COVID-19 disease and pneumonia: Markers improving. Completed Plaquenil. Completed Ceftriaxone for treatment E.coli in tracheal aspirate. #Acute respiratory failure: on mechanical ventilation. #Transaminitis: Likely from COVID-19, shock #Multiple skin tears documented on admission Recs: CT chest abd pelvis Surgical eval of sacral decubitus Obtain sacral wound cultures continue zosyn IV recheck inflammatory markers for COVID recheck covid test today Monitor fever f/u blood cx Continue Wound care Off loading Tracheostomy placement to be scheduled when COVID testing is negative per surgery. Repeat COVID 07/28 positive. will recheck today Will follow. Discussed with nursing staff Padmaja Garcia MD Infectious Diseases [employer] [facility] M [phone] O [phone] Subjective Date of service: 08/07/19 Principal diagnosis: Bilateral pneumonia, severe sepsis with septic shock, encephalopathy Interval history: Remains intubated,remains with low grade fever 101.4, no pressors, on sedative Objective - Exam Narrative Exam: General appearance: sedated on the vent Eyes: anicteric sclerae, moist conjunctivae; no lid-lag; PERRLA HENT: Atraumatic; oropharynx ETT with thick yellow secretion Lungs: madelin rhonchi per RT CV: RRR Abdomen: Soft, non-tender Extremities: marked madelin arm edema Skin: No rash. Genital: penile/scrotal ulcer covered w dressings Psych: no agitated Neuro: sedated Carroll - Constitutional Vitals: Vital Signs Temp Pulse Resp BP Pulse Ox 99.8 F H 89 17 131/68 100 08/07/19 03:14 08/07/19 09:14 08/07/19 06:00 08/07/19 09:14 08/07/19 09:14 Temperature -Last 24 Hours Temperature 99.8 F Temperature 102.1 F Temperature 102.4 F Temperature 101.4 F Temperature 100.3 F - Labs CBC & Chem 7: 08/07/19 05:23 08/07/19 05:23 Labs: Abnormal lab results 08/07/19 08/07/19 Range/Units 05:23 05:23 WBC 30.3 H (4.5-11.0) K/mm3 RBC 2.69 L (3.65-5.03) M/mm3 Hgb 7.1 L (11.8-15.2) gm/dl Hct 22.2 L (35.5-45.6) % MCV 83 L (84-94) fl MCH 27 L (28-32) pg RDW 19.1 H (13.2-15.2) % Plt Count 650 H (140-440) K/mm3 Seg Neuts % (Manual) 88.0 H (40.0-70.0) % Lymphocytes % (Manual) 5.0 L (13.4-35.0) % Seg Neutrophils # Man 26.7 H (1.8-7.7) K/mm3 Monocytes # (Manual) 2.1 H (0.0-0.8) K/mm3 Sodium 135 L (137-145) mmol/L Potassium 3.4 L (3.6-5.0) mmol/L Chloride 95.4 L (98-107) mmol/L Carbon Dioxide 32 H (22-30) mmol/L Creatinine 0.4 L (0.8-1.5) mg/dL Glucose 120 H (75-100) mg/dL Calcium 7.7 L (8.4-10.2) mg/dL
[2019-08-07] MEDS: levETIRAcetam 500 MG/5 ML ORAL LIQD FEEDTUBE SCH ×2 (10:19→21:44)
[2019-08-07] MEDS: FAMOTIDINE 20 MG TAB PO SCH ×2 (10:19→21:45)
[2019-08-07] MEDS: ASPIRIN 81 MG TAB CHEW PO SCH (10:19)
[2019-08-07] MEDS: DOCUSATE SODIUM 100 MG/10 ML ORAL LIQD PO SCH ×2 (10:19→21:45)
[2019-08-07] MEDS: FOLIC ACID 1 MG TAB PO SCH (10:19)
[2019-08-07] MEDS: ENOXAPARIN 40 MG/0.4 ML INJ SUB-Q SCH (10:19)
[2019-08-07] MEDS: SODIUM HYPOCHLORITE, DAKIN'S 1/2 STRENGTH (0.25%) 473 ML TOPICAL SOLN TP SCH ×2 (10:20→21:46)
--- NOTE | 2019-08-07 10:49 | Progress Note ---
Assessment and Plan Assessment and plan: --COVid positive pneumonia with severe sepsis Received Plaquenil and cefepime, monitor off antibiotics ID following --Septic shock: On Levophed Persistent hypotension, titrate to systolic blood pressure more than 100 -- Acute respiratory Failure with Hypoxia Due to bilateral PNA with COVID 19 infection. On ventilatory support, unable to wean Pulmonary critical following --COPD with exacerbation Likely due to COVID-19 pneumonia Continue scheduled nebs --Anemia, Microcytic persistent s/p total 3 unit of PRBC, today Hb today 9.1 --Pressure Ulcers: POA buttocks, right lateral foot area wound and supportive care --Hyponatremia, resolved --DM type 2: Accu-Chek SCC tube feeding, insulin as needed --h/o HTN Essential, now hypotensive On Levophed --Seizure D/o/CVA/immobility/BIpolar D/o/SCZ Seizure precautions, antiepileptic medications --Severe PCM, TF supportive care, dietary following patient is DNR- Called and verified information Very poor prognosis, Recommend hospice 07/04: COVID +ve, start on plaquinil, called no answer 07/05: transfuse one unit PRBC, Hb dropped to ~6, called and updated 07/06; H&H stable, serum chemistry improved. On mechanical ventilation with high inflammatory markers. Continue Plaquenil and empiric antibiotics. ID following, prognosis remains guarded and extremely poor. 07/07: On mechanical ventilation with high inflammatory markers. Continue Plaquenil and empiric antibiotics. ID following, prognosis remains guarded and extremely poor. 07/08: Called today and verified the CODE STATUS. Patient remains DNR. He is still intubated, with poor prognosis. Continue to follow inflammatory markers. 07/09 wean off from vent as tolerated, completed empiric antibiotic and Plaquenil 07/10 wean off from vent as tolerated. poor prognosis 07/11 hb 6.7 today, transfuse one PRBC. wean off from vent as tolerated. poor prognosis 07/12 remains critically on vent. Hb 6.9 07/13 Hb dropped to 6.6, transfuse 1 unit of PRBC, remains on vent critically ill Hypotensive, fluid bolus, if no improvement start Levophed 07/14; remains anemic with hemoglobin of 6.8, received total 3 units of PRBC Additional 1 unit of PRBC today, stool for occult blood to rule out GI causes Started back on Levophed due to hypotension 07/15; patient remains critically ill, hypotensive on Levophed 07/16: Today remains intubated on vent, persistent hypotension on Levophed 07/17; clinically no change, pressor dependent[on Levophed] DNR status 07/18: Patient remains hypotensive requiring Levophed, intubated on vent Unable to wean, critically ill. DNR 07/20/2019 Patient remains hypotensive requiring Levophed, intubated on vent. Patient currently with AC mode ventilation, rate 20, tidal volume 500, FiO2 40% and PEEP 6. Patient is a poor prognosis and apparently was on hospice recently. 07/21/2019. Patient with PEG tube that was clogged yesterday. surgery evaluated the patient and noted Very long PEG tubing with thick material inside. The ent celsa tube was stripped and a large amount of formed tube feed was expressed. The tube was then flushed with sprite and flushed easily. Tube clamped. Patient currently with AC mode ventilation, rate 20, tidal volume 500, FiO2 40% and PEEP 6. Patient is a poor prognosis and apparently was on hospice recently. 07/22/2019. Patient currently with AC mode ventilation, rate 20, tidal volume 500, FiO2 30% and PEEP 6. Patient on sedation with fentanyl drip. Continue Levophed to maintain MAP greater than 65. Patient is a poor prognosis and apparently was on hospice recently. 07/23/2019. Patient currently with AC mode ventilation, rate 20, tidal volume 500, FiO2 30% and PEEP 6. Patient on sedation with fentanyl drip. Continue Levophed to maintain MAP greater than 65. Patient is a poor prognosis and apparently was on hospice recently. 07/24/2019 Patient with Covid-19 infection with pneumonia, acute respiratory failure, intubated on ventilator. No more fever. Continue current management. 07/25/2019 Patient with Covid-19 infection with pneumonia, acute respiratory failure, intubated on ventilator. fever is now resolved. Sedated with propofol 07/26/2019 Patient with covid-19 infection. Still intubated, on vent. 07/27/2019 Patient with Covid-19. he is still critically ill. patient has DNR order. 07/28/2019 Patient with Covid-19 infection. Will repeat labs today. Surgeon consulted for tracheostomy. 07/29/2019 Patient with Covid-19. hypokalemia yesterday, replaced. Will recheck labs in am. 07/30/2019 patient with Covid-19 infection with acute respiratory failure. He is intubated on ventilator. has hypokalemia. replace and recheck BMP in am. patient has UTI, started on Cefepime. 07/31/2019. patient with Covid-19 infection with acute respiratory failure. He is intubated on ventilator. Repeat chest x-ray reveals decreased infiltrates. urology consultation and wound care consult per ID. Follow-up urine and blood culture. Tracheostomy per surgery. 08/01/2019. patient with Covid-19 infection with acute respiratory failure. He is intubated on ventilator. Patient currently with PSV trials. Pressure support 18/PEEP 6. FiO2 30%. Tracheostomy to be placed per surgery wound COVID testing negative. 08/02/2019. Patient with COVID-19 infection and acute respiratory failure on mechanical ventilation. Continue with PSVT trials with pressure support increased to 20. Follow-up serial chest x-ray. Continue Fentanyl infusion and wean sedation as tolerated. Continue daily spontaneous breathing trials. 08/03/2019. Patient with COVID-19 infection and acute respiratory failure on mechanical ventilation. Continue with PSV trials with pressure support increased to 20. Follow-up serial chest x-ray. Continue Fentanyl infusion and wean sedation as tolerated. Continue daily spontaneous breathing trials. 08/04/2019. Patient with COVID-19 infection and acute respiratory failure on mechanical ventilation. Continue with PSV trials 14/6, FiO2 30%. Continue Fentanyl infusion and wean sedation as tolerated. Continue daily spontaneous breathing trials. Tracheostomy placement to be scheduled when COVID testing is negative per surgery. Monitor off antibiotics per ID recommendations 08/05/2019. Patient with COVID-19 infection and acute respiratory failure on mechanical ventilation. Patient currently on AC mode, rate 14, tidal volume 500, FiO2 30% and PEEP of 6. Continue PSV trials as tolerated. Tracheostomy placement to be scheduled when COVID testing is negative per surgery. Monitor off antibiotics per ID recommendations. 08/06/2019. Patient with COVID-19 infection and acute respiratory failure on mechanical ventilation. Patient currently on AC mode, rate 14, tidal volume 500, FiO2 30% and PEEP of 6. Continue PSV trials as tolerated. Tracheostomy placement to be scheduled when COVID testing is negative per surgery. ID restarted antibiotics with cefepime 2 g IV every 8 hours to cover for presumed Pseudomonas pneumonia. Follow-up chest x-ray and blood cultures. Repeat COVID testing 07/28 and positive. Repeat test tomorrow. 08/07/19 Patient with Covid-19, acute respiratory failure. He is still intubated on mechanical ventilator. For tracheostomy when Covid-19 test negative. Still having fever. Leukocytosis worse today, WBC 30.3. For CT Chest, Abdomen. The high probability of a clinically significant, sudden or life threatening deterioration of the [respiratory, CVS, FINAL TOUCH UP PAINTER] system(s) required my full and direct attention, intervention and personal management. The aggregate critical care time was [35] minutes. This time is in addition to time spent performing reported procedures but includes the following: [x] Data Review and interpretation [x] Patient assessment and monitoring of vital signs [x] Documentation [x] Medication orders and management History Interval history: Patient with Covid-19 infection Still intubated Still having fever Hospitalist Physical - Physical exam Narrative exam: GEN: Not in acute distress, intubated HEENT: Normocephalic, atraumatic, Neck: supple, No JVD Lungs: Bilateral crackles, heart;S1 and S2 reg, no murmurs, rubs or gallop Abd:soft, non tender, non distended, normal bowel sounds,PEG tube Ext: No edema, no clubbing, no cyanosis, Neuro: Intubated, on ventilator,sedated - Constitutional Vitals: Temp Pulse Resp BP Pulse Ox 99.8 F H 96 H 17 131/68 100 08/07/19 03:14 08/07/19 09:22 08/07/19 06:00 08/07/19 09:22 08/07/19 09:22 General appearance: Present: other (Orally intubated on vent) HEART Score - HEART Score Troponin: Troponin T 0.013 ng/mL (0.00-0.029) 07/04/19 07:05 Results - Labs CBC & Chem 7: 08/07/19 05:23 08/07/19 05:23 Labs: Laboratory Last Values WBC 30.3 K/mm3 (4.5-11.0) H 08/07/19 05:23 RBC 2.69 M/mm3 (3.65-5.03) L 08/07/19 05:23 Hgb 7.1 gm/dl (11.8-15.2) L 08/07/19 05:23 Hct 22.2 % (35.5-45.6) L 08/07/19 05:23 MCV 83 fl (84-94) L 08/07/19 05:23 MCH 27 pg (28-32) L 08/07/19 05:23 MCHC 32 % (32-34) 08/07/19 05:23 RDW 19.1 % (13.2-15.2) H 08/07/19 05:23 Plt Count 650 K/mm3 (140-440) H 08/07/19 05:23 Lymph % (Auto) 4.9 % (13.4-35.0) L 07/19/19 08:45 Delta % (Auto) 12.2 % (0.0-7.3) H 07/22/19 05:38 Eos % (Auto) 1.0 % (0.0-4.3) 07/19/19 08:45 Baso % (Auto) 0.5 % (0.0-1.8) 07/19/19 08:45 Lymph # 0.8 K/mm3 (1.2-5.4) L 07/19/19 08:45 Delta # 1.5 K/mm3 (0.0-0.8) H 07/22/19 05:38 Eos # 0.2 K/mm3 (0.0-0.4) 07/19/19 08:45 Baso # 0.1 K/mm3 (0.0-0.1) 07/19/19 08:45 Add Manual Diff Complete 08/07/19 05:23 Total Counted 100 08/07/19 05:23 Seg Neutrophils % 72.8 % (40.0-70.0) H 07/22/19 05:38 Seg Neuts % (Manual) 88.0 % (40.0-70.0) H 08/07/19 05:23 Band Neutrophils % 0 % 08/07/19 05:23 Lymphocytes % (Manual) 5.0 % (13.4-35.0) L 08/07/19 05:23 Reactive Lymphs % (Man) 0 % 08/07/19 05:23 Monocytes % (Manual) 7.0 % (0.0-7.3) 08/07/19 05:23 Eosinophils % (Manual) 0 % (0.0-4.3) 08/07/19 05:23 Basophils % (Manual) 0 % (0.0-1.8) 08/07/19 05:23 Metamyelocytes % 0 % 08/07/19 05:23 Myelocytes % 0 % 08/07/19 05:23 Promyelocytes % 0 % 08/07/19 05:23 Blast Cells % 0 % 08/07/19 05:23 Nucleated RBC % Not Reportable 08/07/19 05:23 Seg Neutrophils # 9.2 K/mm3 (1.8-7.7) H 07/22/19 05:38 Seg Neutrophils # Man 26.7 K/mm3 (1.8-7.7) H 08/07/19 05:23 Band Neutrophils # 0.0 K/mm3 08/07/19 05:23 Lymphocytes # (Manual) 1.5 K/mm3 (1.2-5.4) 08/07/19 05:23 Abs React Lymphs (Man) 0.0 K/mm3 08/07/19 05:23 Monocytes # (Manual) 2.1 K/mm3 (0.0-0.8) H 08/07/19 05:23 Eosinophils # (Manual) 0.0 K/mm3 (0.0-0.4) 08/07/19 05:23 Basophils # (Manual) 0.0 K/mm3 (0.0-0.1) 08/07/19 05:23 Metamyelocytes # 0.0 K/mm3 08/07/19 05:23 Myelocytes # 0.0 K/mm3 08/07/19 05:23 Promyelocytes # 0.0 K/mm3 08/07/19 05:23 Blast Cells # 0.0 K/mm3 08/07/19 05:23 WBC Morphology Not Reportable 08/07/19 05:23 Hypersegmented Neuts Not Reportable 08/07/19 05:23 Hyposegmented Neuts Not Reportable 08/07/19 05:23 Hypogranular Neuts Not Reportable 08/07/19 05:23 Smudge Cells Not Reportable 08/07/19 05:23 Toxic Granulation Not Reportable 08/07/19 05:23 Toxic Vacuolation Not Reportable 08/07/19 05:23 Dohle Bodies Not Reportable 08/07/19 05:23 Pelger-Huet Anomaly Not Reportable 08/07/19 05:23 Mendy Rods Not Reportable 08/07/19 05:23 Platelet Estimate Consistent w auto 08/07/19 05:23 Clumped Platelets Not Reportable 08/07/19 05:23 Plt Clumps, EDTA Not Reportable 08/07/19 05:23 Large Platelets Not Reportable 08/07/19 05:23 Giant Platelets Not Reportable 08/07/19 05:23 Platelet Satelliting Not Reportable 08/07/19 05:23 Plt Morphology Comment Not Reportable 08/07/19 05:23 RBC Morphology Not Reportable 08/07/19 05:23 Dimorphic RBCs Not Reportable 08/07/19 05:23 Polychromasia Not Reportable 08/07/19 05:23 Hypochromasia 1+ 08/07/19 05:23 Poikilocytosis Not Reportable 08/07/19 05:23 Anisocytosis Few 08/07/19 05:23 Microcytosis Few 08/07/19 05:23 Macrocytosis Not Reportable 08/07/19 05:23 Spherocytes Not Reportable 08/07/19 05:23 Pappenheimer Bodies Not Reportable 08/07/19 05:23 Sickle Cells Not Reportable 08/07/19 05:23 Target Cells Not Reportable 08/07/19 05:23 Tear Drop Cells Not Reportable 08/07/19 05:23 Ovalocytes Few 08/07/19 05:23 Stomatocytes Few 08/01/19 04:57 Helmet Cells Not Reportable 08/07/19 05:23 [place] Bodies Not Reportable 08/07/19 05:23 Shelton Rings Not Reportable 08/07/19 05:23 Jayess Cells Not Reportable 08/07/19 05:23 Bite Cells Not Reportable 08/07/19 05:23 Crenated Cell Not Reportable 08/07/19 05:23 Elliptocytes Not Reportable 08/07/19 05:23 Acanthocytes (Spur) Not Reportable 08/07/19 05:23 Rouleaux Not Reportable 08/07/19 05:23 Hemoglobin C Crystals Not Reportable 08/07/19 05:23 Schistocytes Few 08/07/19 05:23 Malaria parasites Not Reportable 08/07/19 05:23 Jeevan Bodies Not Reportable 08/07/19 05:23 Hem Pathologist Commnt No 08/07/19 05:23 PT 16.0 Sec. (12.2-14.9) H 07/03/19 22:20 INR 1.26 (0.87-1.13) H 07/03/19 22:20 D-Dimer 1142.18 ng/mlDDU (0-234) H 07/08/19 00:45 ABG pH 7.430 pH Units (7.350-7.450) 07/27/19 05:16 ABG pCO2 48.2 mm Hg 07/27/19 05:16 ABG pO2 63.4 mm Hg (80.0-90.0) L 07/27/19 05:16 ABG HCO3 31.3 mmol/L (20.0-26.0) H 07/27/19 05:16 ABG O2 Saturation 92.7 % (95.0-99.0) L 07/27/19 05:16 ABG O2 Content 9.8 (0.0-44) 07/27/19 05:16 ABG Base Excess 6.3 mmol/L (-2.0-3.0) H 07/27/19 05:16 ABG Hemoglobin 7.6 gm/dl (14.0-18.0) L 07/27/19 05:16 ABG Carboxyhemoglobin 1.6 % (0.0-5.0) 07/27/19 05:16 ABG Methemoglobin 0.4 % (0.0-1.5) 07/27/19 05:16 Oxyhemoglobin 90.9 % (95.0-99.0) L 07/27/19 05:16 FiO2 25 % 07/27/19 05:16 Sodium 135 mmol/L (137-145) L 08/07/19 05:23 Potassium 3.4 mmol/L (3.6-5.0) L 08/07/19 05:23 Chloride 95.4 mmol/L (98-107) L 08/07/19 05:23 Carbon Dioxide 32 mmol/L (22-30) H 08/07/19 05:23 Anion Gap 11 mmol/L 08/07/19 05:23 BUN 11 mg/dL (9-20) 08/07/19 05:23 Creatinine 0.4 mg/dL (0.8-1.5) L 08/07/19 05:23 Estimated GFR > 60 ml/min 08/07/19 05:23 BUN/Creatinine Ratio 28 % 08/07/19 05:23 Glucose 120 mg/dL (75-100) H 08/07/19 05:23 POC Glucose 120 (70-105) H 08/07/19 05:16 Osmolality 268 Mosm/kg 07/05/19 04:00 Lactic Acid 3.30 mmol/L (0.7-2.0) H* 07/04/19 07:05 Uric Acid 7.2 mg/dL (3.5-7.6) 07/05/19 04:00 Calcium 7.7 mg/dL (8.4-10.2) L 08/07/19 05:23 Phosphorus 3.60 mg/dL (2.5-4.5) 07/05/19 04:00 Magnesium 1.80 mg/dL (1.7-2.3) 07/11/19 05:14 Iron 9 ug/dL (49-181) L 07/04/19 07:05 TIBC 97 mcg/dL (250-450) L 07/04/19 07:05 Ferritin 839.0 ng/mL (13.0-400.0) H 07/08/19 00:45 Total Bilirubin 0.20 mg/dL (0.1-1.2) 07/04/19 07:05 AST 73 units/L (5-40) H 07/04/19 07:05 ALT 91 units/L (7-56) H 07/04/19 07:05 Alkaline Phosphatase 114 units/L (35-129) 07/04/19 07:05 Ammonia 35.0 umol/L (25-60) 07/03/19 23:58 Lactate Dehydrogenase 277 units/L (91-180) H 07/10/19 04:00 Troponin T 0.013 ng/mL (0.00-0.029) 07/04/19 07:05 C-Reactive Protein 15.10 mg/dL (0.00-1.30) H 07/10/19 04:00 Total Protein 5.5 g/dL (6.3-8.2) L 07/04/19 07:05 Albumin 1.6 g/dL (3.9-5) L 07/31/19 04:42 Albumin/Globulin Ratio 0.6 % 07/04/19 07:05 Prealbumin 0.037 g/L (0.200-0.400) L 07/31/19 04:42 Triglycerides 33 mg/dL (2-149) 07/03/19 19:57 Cholesterol 47 mg/dL (50-199) L 07/03/19 19:57 LDL Cholesterol Direct 25 mg/dL (50-130) L 07/03/19 19:57 HDL Cholesterol 20 mg/dL (40-59) L 07/03/19 19:57 Cholesterol/HDL Ratio 2.35 % 07/03/19 19:57 Procalcitonin 0.53 ng/mL (<0.15) 08/06/19 10:18 TSH 2.170 mlU/mL (0.270-4.200) 07/03/19 22:20 Total Cortisol 28.0 mcg/dL () 07/05/19 10:11 Urine Color Yellow (Yellow) 07/29/19 11:57 Urine Turbidity Clear (Clear) 07/29/19 11:57 Urine pH 7.0 (5.0-7.0) 07/29/19 11:57 Ur Specific [place] 1.012 (1.003-1.030) 07/29/19 11:57 Urine Protein <15 mg/dl mg/dL (Negative) 07/29/19 11:57 Urine Glucose (UA) Neg mg/dL (Negative) 07/29/19 11:57 Urine Ketones Neg mg/dL (Negative) 07/29/19 11:57 Urine Blood Sm (Negative) 07/29/19 11:57 Urine Nitrite Neg (Negative) 07/29/19 11:57 Urine Bilirubin Neg (Negative) 07/29/19 11:57 Urine Urobilinogen 4.0 mg/dL (<2.0) 07/29/19 11:57 Ur Leukocyte Esterase Mod (Negative) 07/29/19 11:57 Urine WBC (Auto) 63.0 /HPF (0.0-6.0) H 07/29/19 11:57 Urine RBC (Auto) 14.0 /HPF (0.0-6.0) 07/29/19 11:57 U Epithel Cells (Auto) < 1.0 /HPF (0-13.0) 07/29/19 11:57 Urine Bacteria (Auto) 1+ /HPF (Negative) 07/29/19 11:57 Urine WBC Clumps Few /HPF 07/03/19 21:13 Urine Mucus Few /HPF 07/03/19 21:13 Urine Osmolality 293 Mosm/kg 07/05/19 08:15 Vancomycin Trough 23.2 ug/mL (5.0-20.0) H 07/05/19 17:54 Urine Opiates Screen Presumptive negative 07/03/19 21:13 Urine Methadone Screen Presumptive negative 07/03/19 21:13 Ur Barbiturates Screen Presumptive negative 07/03/19 21:13 Ur Phencyclidine Scrn Presumptive negative 07/03/19 21:13 Ur Amphetamines Screen Presumptive negative 07/03/19 21:13 U Benzodiazepines Scrn Presumptive negative 07/03/19 21:13 Urine Cocaine Screen Presumptive negative 07/03/19 21:13 U Marijuana (THC) Screen Presumptive negative 07/03/19 21:13 Drugs of Abuse Note Disclamer 07/03/19 21:13 Plasma/Serum Alcohol < 0.01 % (0-0.07) 07/03/19 23:58 Coronavirus (PCR) Positive (Negative) A 07/29/19 Unknown Blood Type B POSITIVE 07/12/19 08:49 Antibody Screen Negative 07/12/19 08:49 Crossmatch See Detail 07/12/19 08:49 Microbiology: Microbiology 08/06/19 10:18 Peripheral/Venous Blood Culture - Preliminary Culture in Progress 08/06/19 11:07 Peripheral/Venous Blood Culture - Preliminary Culture in Progress Wright/IV: Voiding Method Indwelling Catheter IV Catheter Type [Left Forearm Peripheral IV ] IV Catheter Type [Left Upper Mid-line arm] IV Catheter Type [Right INT / Saline Lock Forearm] IV Catheter Type [Right Hand] INT / Saline Lock IV Catheter Type [Right CVL Femoral] IV Catheter Type [Left INT / Saline Lock External Jugular] Active Medications - Current Medications Current Medications: Generic Name Dose Route Start Last Admin Trade Name Freq PRN Reason Stop Dose Admin Acetaminophen 650 mg 07/04/19 04:24 08/05/19 17:40 Tylenol VA 650 mg Q6H PRN Administration Pain MILD(1-3)/Fever >100.5/MURO Acetaminophen 650 mg 07/10/19 04:00 08/06/19 23:43 Tylenol PO 650 mg Q6HR PRN Administration Pain, Mild (1-3) FEVER Lipase/Protease/Amylase 1 each 07/04/19 10:04 07/20/19 06:[address] 10,500 Unit FEEDTUBE 1 each PRN PRN Administration For Clogged Feeding Tube Aspirin 81 mg 07/05/19 10:00 08/07/19 10:19 Baby Aspirin PO 81 mg QDAY TAMMIE Administration Dextrose 50 ml 07/04/19 06:54 D50w (25gm) Syringe IV Q30MIN PRN Hypoglycemia Protocol Docusate Sodium 100 mg 07/10/19 10:00 08/07/19 10:19 Colace PO 100 mg BID TAMMIE Administration Enoxaparin Sodium 40 mg 07/24/19 10:00 08/07/19 10:19 Enoxaparin SUB-Q 40 mg QDAY@1000 TAMMIE Administration Famotidine 20 mg 07/23/19 22:00 08/07/19 10:19 Pepcid PO 20 mg BID TAMMIE Administration Fentanyl 50 mcg 07/21/19 15:18 Sublimaze IV Q10MIN PRN ANALGESIA Fentanyl 25 mcg 08/03/19 11:00 08/06/19 10:27 Duragesic TD 25 mcg Q3D TAMMIE Administration Folic Acid 1 mg 07/05/19 10:00 08/07/19 10:19 Folvite PO 1 mg QDAY TAMMIE Administration Hydrophilic Ointment 1 applic 07/03/19 19:56 07/05/19 17:42 Vaseline Lip Therapy TP 1 applic Q2HR PRN Administration Dry Lips Norepinephrine 4 mg in 250 mls @ 7.5 mls/hr 07/03/19 23:00 07/20/19 01:00 Levophed Drip 4 Mg/Ns 250 Ml IV Infused TITR TAMMIE Titration Protocol 2 MCG/MIN Piperacillin Sod/Tazobactam Sod 4.5 gm in 100 mls @ 200 mls/hr 08/06/19 12:00 05/19/20 05:04 Zosyn/Ns 4.5gm/100ml IV 200 mls/hr Q6HR TAMMIE Administration Protocol Insulin Human Lispro 0 unit 07/07/19 12:00 08/07/19 05:04 Humalog SUB-Q Not Given Q6HR [facility] Protocol Levetiracetam 750 mg 07/06/19 11:00 08/07/19 10:19 Keppra FEEDTUBE 750 mg Q12HR TAMMIE Administration Metoprolol Tartrate 5 mg 07/12/19 15:08 07/29/19 07:30 Metoprolol IV 5 mg Q6HR PRN Administration Tachyarrhythmias Multi-Ingred Cream/Lotion/Oil/Oint 1 applic 07/03/19 19:56 07/05/19 13:19 Artificial Tears Ophth Oint OU 1 applic Q4HR PRN Administration Dry Eye(s) Naloxone HCl 0.1 mg 07/04/19 04:24 Naloxone IV Q2MIN PRN Res Rate </= 8 or 02 SAT < 92% Oxycodone/Acetaminophen 1 tab 07/19/19 14:17 Percocet 5/325 PO Q4H PRN Pain, Moderate (4-6) Scopolamine 1 each 07/10/19 11:00 08/06/19 10:26 Transderm-Scop TD 1 each Q3D TAMMIE Administration Simple Syrup 15 ml 07/04/19 10:04 07/10/19 21:56 Simple Syrup FEEDTUBE 15 ml PRN PRN Administration Hypoglycemia Simple Syrup 30 ml 07/04/19 10:04 Simple Syrup FEEDTUBE PRN PRN Hypoglycemia Sodium Bicarbonate 325 mg 07/04/19 10:04 07/20/19 10:20 Sodium Bicarbonate FEEDTUBE 325 mg PRN PRN Administration For Clogged Feeding Tube Sodium Chloride 10 ml 07/04/19 10:00 08/07/19 10:21 Sodium Chloride Flush Syringe 10 Ml IV 10 ml BID TAMMIE Administration Sodium Chloride 10 ml 07/04/19 04:24 Sodium Chloride Flush Syringe 10 Ml IV PRN PRN LINE FLUSH Sodium Hypochlorite 1 applic 07/10/19 14:00 08/07/19 10:20 Dakin's Half Strength TP 1 applicatio BID TAMMIE Administration Nutrition/Malnutrition Assess - Dietary Evaluation Nutrition/Malnutrition Findings: Nutrition Notes Start: 07/04/19 09:17 Freq: Status: Active Protocol: Document 08/06/19 12:46 LM (Rec: 08/06/19 12:59 LM [email or web address]) Nutrition Notes Initial or Follow up Reassessment Current Diagnosis Acute Kidney Injury,COPD, Decubitus(Pressure Ulcer), Diabetes,Hypertension Other Pertinent Diagnosis COVID-19 (+), pneu, seizures, schizophrenia, Buttock and R foot PU, Current Diet TF - Nepro at 45ml/hr Labs/Tests K 3.4 Cr 0.3 BUN 9 Na 137 Pertinent Medications Folic acid Height 5 ft 11 in Weight 92 kg [place] Body Weight (kg) 78.18 BMI 28.3 Weight change and time frame wt change noted Subjective/Other Information Pt tolerating Nepro. Will change TF due to labs. Burn Absent Trauma Absent Current % PO Negligible Minimum of two criteria No physical signs of malnutrition #2 Nutrition Diagnosis Increased nutrient needs ( specify in comment below) Diagnosis Progress(for reassessment Continues documentation) #1 Nutrition Diagnosis Inadequate oral intake Diagnosis Progress(for reassessment Continues documentation) Is patient on ventilator? Yes Is Patient Ambulatory and/or Out of Bed No REE-([place]-confined to bed) 8.172 [facility]culation [facility] Additional Notes Protein: 110-184 (1.2-2g/kg) Fluid: 1 ml/kcal or per MD Nutrition Intervention Change Diet Order: Continue TF Nutrition Support: [place] to Osmolite 1.5 at 55ml/hr Flush 150ml q4h Kcal 1,980 Protein (gm) 83 Fluid (mL) 1,006 Goal #1 TF tolerance Goal #2 TF to meet at least 75% of energy and protein needs Anticipated Discharge Needs: unable to determine at this time Follow-Up By: 08/08/19 Additional Comments F/U for TF change/tolerance
[2019-08-07 11:19] LABS: Hepatitis B Surface Antigen Non-Reactive (Negative); Hepatitis C Virus Antibody Non-Reactive (NonReactive)
[2019-08-07 11:33] LABS: ABG HCO3 33.9 mmol/L (20.0-26.0); ABG Methemoglobin 0.4 % (0.0-1.5); ABG Oxygen Saturation 96.5 % (95.0-99.0); ABG PCO2 50.5 mm Hg; ABG PH 7.445 pH Units (7.350-7.450); ABG PO2 73.3 mm Hg (80.0-90.0)
--- NOTE | 2019-08-07 11:47 | Progress Note ---
Assessment and Plan S/p Cardiopulmonary arrest with ROSC Severe Sepsis with septic shock. Acute hypoxemic respiratory failure on MVS COVID-19 positive with elevated markers Bilateral pneumonia Elevated LFTs. Oropharyngeal dysphagia s/p PEG Acute kidney injury Decubitus ulcers-unstageable Moderate protein calorie malnutriton [id number] metabolic acidosis Leukocytosis Thrombocytosis Microcytic anemia Repeat COVID testing to help facilitate trach/PEG placement Continue with NGT feeding, PEG tube dislodged over night Empiric antibiotics, await CT chest, abdomen and pelvis for further management decision Discussed with ID service Continue all care as documented -Continue enoxaparin for VTE prophylaxis- currently has severe thrombocytosis -On Fentanyl infusion, at 1mcg to allow f weaning trials -Continue to coordinate sedation interruption( RN) and SBT( RT) today to optimize chances of success with weaning trial -ABG, CXR prn - continue airborne, droplet and contact isolation for COVID-19 - continue wound care per WCT - sedation prn for target RASS 0 to -1 - continue to wean supplemental oxygen for target O2 sat's > 90% - Daily SAT's and SBT assessment as tolerated - VAP bundle addressed - continue lung protective strategies - continue bronchodilators with pulmonary hygiene per RT - wean per pulmonary driven protocols otherwise - accuchecks with glycemic control per SSI (While critically ill target blood glucose of 140-180 mg/dL; avoid hypoglycemia) - continue to avoid benzodiazepines, reduce the possibility of delirium - prn analgesia per CPOT score - Maintenance of sleep-wake cycle, avoid delirium - continue enteral nutritional support at goal rate as tolerated - VTE prophylaxis-SCDs/Enoxaparin -Stress ulcer prophylaxis- Famotidine - PT/OT/ROM exercises - continue mobility protocol, off loading and skin assessment for pressure ulcer prevention - Monitor hemodynamics closely -Wright catheter in this critically ill patient with unstageable sacral decubitus ulcer -PEG site care - continue other care per attending / other consultants - discharge planning ongoing concurrently .... Re-evaluate in am & prn CONDITION: CRITICAL PROGNOSIS: GUARDED CODE STATUS: DNAR Called his family to discuss goals of care, wants us to continue to treat aggressively at this time. The high probability of a clinically significant, sudden or life-threatening deterioration of the [respiratory ,cardiovascular, neurology] system(s) required my full and direct attention, intervention and personal management. The aggregate critical care time was [31] minutes without overlap. Time includes spent on; [x] Data Review and interpretation [x] Patient assessment and monitoring of vital signs [x] Documentation [x] Medication orders and management Subjective Date of service: 08/07/19 Principal diagnosis: Bilateral pneumonia, severe sepsis with septic shock, encephalopathy Interval history: The patient is a 69-year-old male with CVA, hypertension, dementia, schizophrenia, alcohol use disorder was admitted to the emergency room after being brought in by EMS with progressive shortness of breath and unresponsiveness. He was noted to have agonal breathing and a faint pulse requiring CPR. Patient was intubated and brought to the hospital. It seems, patient was on home hospice. Currently, remains critically ill, intubated, on mechanical ventilation. His COVID test resulted positive. Patient is seen today for: s/p cardiopulmonary arrest with ROSC;Ac hypoxemic Re sp failure on MVS; Severe sepsis with Shock; Bilateral Pneumonia; POSITIVE coronavirus-19 infection. Seen and examined at bedside; 24hour events reviewed; nursing and respiratory care staff consulted; no adverse overnight events reported to me; resting in bed.Ongoing fevers with persistent leukocytosis. Remains COVID positive On MVS and tolerating it well; on fentanyl at 1mcg Tolerating tube feedings, Mental status changes persist, will spontaneously open eyes Current setting AC-VC 14/500/30%/PEEP 6 Was seen by Gen Surg in consult for trach placement No new issues Objective Vital Signs - 12hr 08/07/19 08/07/19 08/07/19 00:00 01:00 02:00 Temperature Pulse Rate 110 H 100 H 93 H Pulse Rate [ 114 H From Monitor] Respiratory 20 20 17 Rate Blood Pressure 134/72 116/60 118/66 O2 Sat by Pulse 100 100 100 Oximetry 08/07/19 08/07/19 08/07/19 03:00 03:14 03:58 Temperature 99.8 F H Pulse Rate 93 H 105 H Pulse Rate [ From Monitor] Respiratory 18 Rate Blood Pressure 120/68 120/70 O2 Sat by Pulse 100 99 Oximetry 08/07/19 08/07/19 08/07/19 04:00 05:00 06:00 Temperature Pulse Rate 104 H 105 H 96 H Pulse Rate [ 90 From Monitor] Respiratory 18 13 17 Rate Blood Pressure 138/79 138/71 130/73 O2 Sat by Pulse 99 98 100 Oximetry 08/07/19 08/07/19 08/07/19 07:00 08:00 09:00 Temperature Pulse Rate 91 H 94 H 87 Pulse Rate [ From Monitor] Respiratory 16 17 13 Rate Blood Pressure 132/76 138/77 131/68 O2 Sat by Pulse 99 100 100 Oximetry 08/07/19 08/07/19 08/07/19 09:14 09:22 10:00 Temperature Pulse Rate 89 96 H 99 H Pulse Rate [ From Monitor] Respiratory 23 Rate Blood Pressure 131/68 131/68 133/75 O2 Sat by Pulse 100 100 99 Oximetry 08/07/19 11:00 Temperature Pulse Rate 101 H Pulse Rate [ From Monitor] Respiratory 28 H Rate Blood Pressure 132/73 O2 Sat by Pulse 98 Oximetry Constitutional: appears uncomfortable, other (eelderly and chronically ill looking AAM, normocephalic with mildly increased respiratory effort at rest) Eyes: non-icteric ENT: oropharynx moist, other (ETT 7.0 at 23 cm RUTH) Neck: supple, no lymphadenopathy, no JVD Effort: mildly labored Ascultation: Bilateral: diminished breath sounds, rhonchi Percussion: Bilateral: not dull Cardiovascular: regular rate and rhythm, other (S1,S2) Gastrointestinal: normoactive bowel sounds, soft, non-tender, non-distended, other (+ PEG tube with mild TF leakage) Integumentary: decubitus ulcer Extremities: no cyanosis, no edema, pink and warm, pulses normal Neurologic: unable to assess Psychiatric: other (Unable to assess re: AMS) CBC and BMP: 08/08/19 04:41 08/08/19 04:41 ABG, PT/INR, D-dimer: ABG ABG pH 7.445 pH Units (7.350-7.450) 08/07/19 11:10 ABG pCO2 50.5 mm Hg 08/07/19 11:10 ABG pO2 73.3 mm Hg (80.0-90.0) L 08/07/19 11:10 ABG O2 Saturation 96.5 % (95.0-99.0) 08/07/19 11:10 PT/INR, D-dimer PT 16.0 Sec. (12.2-14.9) H 07/03/19 22:20 INR 1.26 (0.87-1.13) H 07/03/19 22:20 D-Dimer 1808.06 ng/mlDDU (0-234) H 08/07/19 10:24 Abnormal lab findings: Abnormal Labs 07/03/19 07/03/19 07/03/19 19:57 21:10 21:13 WBC RBC Hgb Hct MCV MCH MCHC RDW Plt Count Lymph % (Auto) [place] % (Auto) Lymph # [place] # Baso # Seg Neutrophils % Seg Neuts % (Manual) Lymphocytes % (Manual) Monocytes % (Manual) Nucleated RBC % Seg Neutrophils # Seg Neutrophils # Man Lymphocytes # (Manual) Monocytes # (Manual) Basophils # (Manual) PT INR D-Dimer ABG pH 7.238 L ABG pO2 210.8 H ABG HCO3 15.4 L ABG O2 Saturation 99.2 H ABG Base Excess -11.1 L ABG Hemoglobin 8.0 L Oxyhemoglobin Sodium 124 L Potassium Chloride 92.9 L Carbon Dioxide 10 L BUN 23 H Creatinine 0.5 L Glucose 118 H POC Glucose Lactic Acid Calcium 7.0 L Magnesium Iron TIBC Ferritin AST 70 H ALT 88 H Lactate Dehydrogenase Troponin T 0.032 H C-Reactive Protein Total Protein 5.0 L Albumin 1.8 L Prealbumin Cholesterol 47 L LDL Cholesterol Direct 25 L HDL Cholesterol 20 L Urine WBC (Auto) 12.0 H Vancomycin Trough Coronavirus (PCR) Crossmatch 07/03/19 07/03/19 07/03/19 22:20 22:20 22:20 WBC 30.5 H RBC 2.96 L Hgb 7.7 L Hct 23.9 L MCV 81 L MCH 26 L MCHC RDW 18.6 H Plt Count 459 H Lymph % (Auto) [place] % (Auto) Lymph # [place] # Baso # Seg Neutrophils % Seg Neuts % (Manual) 93.0 H Lymphocytes % (Manual) 0.5 L Monocytes % (Manual) Nucleated RBC % Seg Neutrophils # Seg Neutrophils # Man 28.4 H Lymphocytes # (Manual) 0.2 L Monocytes # (Manual) Basophils # (Manual) PT 16.0 H INR 1.26 H D-Dimer ABG pH ABG pO2 ABG HCO3 ABG O2 Saturation ABG Base Excess ABG Hemoglobin Oxyhemoglobin Sodium Potassium Chloride Carbon Dioxide BUN Creatinine Glucose POC Glucose Lactic Acid 6.90 H* Calcium Magnesium Iron TIBC Ferritin AST ALT Lactate Dehydrogenase Troponin T C-Reactive Protein Total Protein Albumin Prealbumin Cholesterol LDL Cholesterol Direct HDL Cholesterol Urine WBC (Auto) Vancomycin Trough Coronavirus (PCR) Crossmatch 07/03/19 07/04/19 07/04/19 23:58 05:15 07:05 WBC 17.1 H RBC 3.22 L Hgb 8.3 L Hct 25.4 L MCV 79 L MCH 26 L MCHC RDW 18.6 H Plt Count Lymph % (Auto) [place] % (Auto) Lymph # [place] # Baso # Seg Neutrophils % Seg Neuts % (Manual) 74.0 H Lymphocytes % (Manual) 0 L Monocytes % (Manual) Nucleated RBC % Seg Neutrophils # Seg Neutrophils # Man 12.7 H Lymphocytes # (Manual) 0.0 L Monocytes # (Manual) Basophils # (Manual) PT INR D-Dimer ABG pH 7.310 L ABG pO2 73.2 L ABG HCO3 17.8 L ABG O2 Saturation 93.8 L ABG Base Excess -7.7 L ABG Hemoglobin 9.6 L Oxyhemoglobin 92.3 L Sodium Potassium Chloride Carbon Dioxide BUN Creatinine Glucose POC Glucose Lactic Acid 7.10 H* Calcium Magnesium Iron TIBC Ferritin AST ALT Lactate Dehydrogenase Troponin T C-Reactive Protein Total Protein Albumin Prealbumin Cholesterol LDL Cholesterol Direct HDL Cholesterol Urine WBC (Auto) Vancomycin Trough Coronavirus (PCR) Crossmatch 07/04/19 07/04/19 07/04/19 07:05 07:05 07:05 WBC RBC Hgb Hct MCV MCH MCHC RDW Plt Count Lymph % (Auto) [place] % (Auto) Lymph # [place] # Baso # Seg Neutrophils % Seg Neuts % (Manual) Lymphocytes % (Manual) Monocytes % (Manual) Nucleated RBC % Seg Neutrophils # Seg Neutrophils # Man Lymphocytes # (Manual) Monocytes # (Manual) Basophils # (Manual) PT INR D-Dimer ABG pH ABG pO2 ABG HCO3 ABG O2 Saturation ABG Base Excess ABG Hemoglobin Oxyhemoglobin Sodium 120 L Potassium 5.1 H Chloride 90.0 L Carbon Dioxide 14 L BUN 26 H Creatinine 0.5 L Glucose POC Glucose Lactic Acid 3.30 H* Calcium 8.0 L Magnesium Iron 9 L TIBC 97 L Ferritin AST 73 H ALT 91 H Lactate Dehydrogenase Troponin T C-Reactive Protein Total Protein 5.5 L Albumin 2.0 L Prealbumin Cholesterol LDL Cholesterol Direct HDL Cholesterol Urine WBC (Auto) Vancomycin Trough Coronavirus (PCR) Crossmatch 07/04/19 07/04/19 07/04/19 09:39 09:39 09:39 WBC RBC Hgb Hct MCV MCH MCHC RDW Plt Count Lymph % (Auto) [place] % (Auto) Lymph # [place] # Baso # Seg Neutrophils % Seg Neuts % (Manual) Lymphocytes % (Manual) Monocytes % (Manual) Nucleated RBC % Seg Neutrophils # Seg Neutrophils # Man Lymphocytes # (Manual) Monocytes # (Manual) Basophils # (Manual) PT INR D-Dimer 1419.14 H ABG pH ABG pO2 ABG HCO3 ABG O2 Saturation ABG Base Excess ABG Hemoglobin Oxyhemoglobin Sodium Potassium Chloride Carbon Dioxide BUN Creatinine Glucose POC Glucose Lactic Acid Calcium Magnesium Iron TIBC Ferritin 1719.0 H AST ALT Lactate Dehydrogenase 234 H Troponin T C-Reactive Protein 15.50 H Total Protein Albumin Prealbumin Cholesterol LDL Cholesterol Direct HDL Cholesterol Urine WBC (Auto) Vancomycin Trough Coronavirus (PCR) Crossmatch 07/04/19 07/04/19 07/04/19 10:09 18:08 18:28 WBC RBC Hgb Hct MCV MCH MCHC RDW Plt Count Lymph % (Auto) [place] % (Auto) Lymph # [place] # Baso # Seg Neutrophils % Seg Neuts % (Manual) Lymphocytes % (Manual) Monocytes % (Manual) Nucleated RBC % Seg Neutrophils # Seg Neutrophils # Man Lymphocytes # (Manual) Monocytes # (Manual) Basophils # (Manual) PT INR D-Dimer ABG pH ABG pO2 ABG HCO3 ABG O2 Saturation ABG Base Excess ABG Hemoglobin Oxyhemoglobin Sodium 117 L* Potassium 5.6 H Chloride 90.3 L Carbon Dioxide 16 L BUN 28 H Creatinine 0.5 L Glucose 58 L POC Glucose 65 L Lactic Acid Calcium 8.2 L Magnesium Iron TIBC Ferritin AST ALT Lactate Dehydrogenase Troponin T C-Reactive Protein Total Protein Albumin Prealbumin Cholesterol LDL Cholesterol Direct HDL Cholesterol Urine WBC (Auto) Vancomycin Trough Coronavirus (PCR) Positive A Crossmatch 07/04/19 07/04/19 07/04/19 23:45 Unknown Unknown WBC RBC Hgb Hct MCV MCH MCHC RDW Plt Count Lymph % (Auto) [place] % (Auto) Lymph # [place] # Baso # Seg Neutrophils % Seg Neuts % (Manual) Lymphocytes % (Manual) Monocytes % (Manual) Nucleated RBC % Seg Neutrophils # Seg Neutrophils # Man Lymphocytes # (Manual) Monocytes # (Manual) Basophils # (Manual) PT INR D-Dimer 759.77 H ABG pH ABG pO2 ABG HCO3 ABG O2 Saturation ABG Base Excess ABG Hemoglobin Oxyhemoglobin Sodium 122 L Potassium Chloride 93.0 L Carbon Dioxide 19 L BUN 27 H Creatinine 0.5 L Glucose POC Glucose Lactic Acid Calcium 8.3 L Magnesium Iron TIBC Ferritin 1301.0 H AST ALT Lactate Dehydrogenase Troponin T C-Reactive Protein Total Protein Albumin Prealbumin Cholesterol LDL Cholesterol Direct HDL Cholesterol Urine WBC (Auto) Vancomycin Trough Coronavirus (PCR) Crossmatch 07/04/19 07/05/19 07/05/19 Unknown 03:20 04:00 WBC RBC Hgb Hct MCV MCH MCHC RDW Plt Count Lymph % (Auto) [place] % (Auto) Lymph # [place] # Baso # Seg Neutrophils % Seg Neuts % (Manual) Lymphocytes % (Manual) Monocytes % (Manual) Nucleated RBC % Seg Neutrophils # Seg Neutrophils # Man Lymphocytes # (Manual) Monocytes # (Manual) Basophils # (Manual) PT INR D-Dimer ABG pH ABG pO2 60.6 L ABG HCO3 ABG O2 Saturation 93.5 L ABG Base Excess -2.4 L ABG Hemoglobin 6.9 L Oxyhemoglobin 92.0 L Sodium 125 L Potassium Chloride 92.6 L Carbon Dioxide 19 L BUN 24 H Creatinine 0.6 L Glucose POC Glucose Lactic Acid Calcium 8.2 L Magnesium 1.40 L Iron TIBC Ferritin AST ALT Lactate Dehydrogenase 242 H Troponin T C-Reactive Protein 16.70 H Total Protein Albumin Prealbumin Cholesterol LDL Cholesterol Direct HDL Cholesterol Urine WBC (Auto) Vancomycin Trough Coronavirus (PCR) Crossmatch 07/05/19 07/05/19 07/05/19 10:11 16:15 17:54 WBC 46.4 H* RBC 2.77 L Hgb 7.2 L Hct 21.9 L MCV 79 L MCH 26 L MCHC RDW 19.0 H Plt Count Lymph % (Auto) [place] % (Auto) Lymph # [place] # Baso # Seg Neutrophils % Seg Neuts % (Manual) 82.0 H Lymphocytes % (Manual) 1.0 L Monocytes % (Manual) Nucleated RBC % Seg Neutrophils # Seg Neutrophils # Man 38.0 H Lymphocytes # (Manual) 0.5 L Monocytes # (Manual) Basophils # (Manual) PT INR D-Dimer ABG pH ABG pO2 ABG HCO3 ABG O2 Saturation ABG Base Excess ABG Hemoglobin Oxyhemoglobin Sodium Potassium Chloride Carbon Dioxide BUN Creatinine Glucose POC Glucose 69 L Lactic Acid Calcium Magnesium Iron TIBC Ferritin AST ALT Lactate Dehydrogenase Troponin T C-Reactive Protein Total Protein Albumin Prealbumin Cholesterol LDL Cholesterol Direct HDL Cholesterol Urine WBC (Auto) Vancomycin Trough 23.2 H Coronavirus (PCR) Crossmatch 07/05/19 07/06/19 07/06/19 19:58 00:27 00:27 WBC RBC Hgb Hct MCV MCH MCHC RDW Plt Count Lymph % (Auto) [place] % (Auto) Lymph # [place] # Baso # Seg Neutrophils % Seg Neuts % (Manual) Lymphocytes % (Manual) Monocytes % (Manual) Nucleated RBC % Seg Neutrophils # Seg Neutrophils # Man Lymphocytes # (Manual) Monocytes # (Manual) Basophils # (Manual) PT INR D-Dimer 1333.22 H ABG pH ABG pO2 ABG HCO3 ABG O2 Saturation ABG Base Excess ABG Hemoglobin Oxyhemoglobin Sodium 127 L Potassium Chloride Carbon Dioxide BUN Creatinine Glucose POC Glucose Lactic Acid Calcium Magnesium Iron TIBC Ferritin 977.1 H AST ALT Lactate Dehydrogenase Troponin T C-Reactive Protein Total Protein Albumin Prealbumin Cholesterol LDL Cholesterol Direct HDL Cholesterol Urine WBC (Auto) Vancomycin Trough Coronavirus (PCR) Crossmatch 07/06/19 07/06/19 07/06/19 00:27 02:00 02:56 WBC RBC Hgb Hct MCV MCH MCHC RDW Plt Count Lymph % (Auto) [place] % (Auto) Lymph # [place] # Baso # Seg Neutrophils % Seg Neuts % (Manual) Lymphocytes % (Manual) Monocytes % (Manual) Nucleated RBC % Seg Neutrophils # Seg Neutrophils # Man Lymphocytes # (Manual) Monocytes # (Manual) Basophils # (Manual) PT INR D-Dimer ABG pH ABG pO2 70.3 L ABG HCO3 ABG O2 Saturation 94.8 L ABG Base Excess ABG Hemoglobin 8.0 L Oxyhemoglobin 93.2 L Sodium Potassium Chloride Carbon Dioxide BUN Creatinine Glucose POC Glucose 117 H Lactic Acid Calcium Magnesium Iron TIBC Ferritin AST ALT Lactate Dehydrogenase 236 H Troponin T C-Reactive Protein 22.90 H Total Protein Albumin Prealbumin Cholesterol LDL Cholesterol Direct HDL Cholesterol Urine WBC (Auto) Vancomycin Trough Coronavirus (PCR) Crossmatch 07/06/19 07/06/19 07/06/19 03:49 03:49 07:40 WBC 38.8 H RBC 2.51 L Hgb 6.7 L Hct 19.9 L* MCV 79 L MCH 27 L MCHC RDW 19.2 H Plt Count Lymph % (Auto) [place] % (Auto) Lymph # [place] # Baso # Seg Neutrophils % Seg Neuts % (Manual) 90.5 H Lymphocytes % (Manual) 1.0 L Monocytes % (Manual) Nucleated RBC % Seg Neutrophils # Seg Neutrophils # Man 35.1 H Lymphocytes # (Manual) 0.4 L Monocytes # (Manual) Basophils # (Manual) PT INR D-Dimer ABG pH ABG pO2 ABG HCO3 ABG O2 Saturation ABG Base Excess ABG Hemoglobin Oxyhemoglobin Sodium 131 L Potassium Chloride 96.9 L Carbon Dioxide 18 L BUN 23 H Creatinine 0.5 L Glucose POC Glucose Lactic Acid Calcium 8.0 L Magnesium Iron TIBC Ferritin AST ALT Lactate Dehydrogenase Troponin T C-Reactive Protein Total Protein Albumin Prealbumin Cholesterol LDL Cholesterol Direct HDL Cholesterol Urine WBC (Auto) Vancomycin Trough Coronavirus (PCR) Crossmatch See Detail 07/06/19 07/06/19 07/06/19 12:38 14:39 20:00 WBC RBC Hgb Hct MCV MCH MCHC RDW Plt Count Lymph % (Auto) [place] % (Auto) Lymph # [place] # Baso # Seg Neutrophils % Seg Neuts % (Manual) Lymphocytes % (Manual) Monocytes % (Manual) Nucleated RBC % Seg Neutrophils # Seg Neutrophils # Man Lymphocytes # (Manual) Monocytes # (Manual) Basophils # (Manual) PT INR D-Dimer ABG pH ABG pO2 ABG HCO3 ABG O2 Saturation ABG Base Excess ABG Hemoglobin Oxyhemoglobin Sodium Potassium Chloride Carbon Dioxide BUN Creatinine Glucose POC Glucose 112 H 111 H 140 H Lactic Acid Calcium Magnesium Iron TIBC Ferritin AST ALT Lactate Dehydrogenase Troponin T C-Reactive Protein Total Protein Albumin Prealbumin Cholesterol LDL Cholesterol Direct HDL Cholesterol Urine WBC (Auto) Vancomycin Trough Coronavirus (PCR) Crossmatch 07/06/19 07/06/19 07/07/19 22:43 22:56 02:20 WBC RBC Hgb 7.9 L Hct 23.1 L MCV MCH MCHC RDW Plt Count Lymph % (Auto) [place] % (Auto) Lymph # [place] # Baso # Seg Neutrophils % Seg Neuts % (Manual) Lymphocytes % (Manual) Monocytes % (Manual) Nucleated RBC % Seg Neutrophils # Seg Neutrophils # Man Lymphocytes # (Manual) Monocytes # (Manual) Basophils # (Manual) PT INR D-Dimer ABG pH ABG pO2 ABG HCO3 ABG O2 Saturation ABG Base Excess ABG Hemoglobin Oxyhemoglobin Sodium Potassium Chloride Carbon Dioxide BUN Creatinine Glucose POC Glucose 122 H 149 H Lactic Acid Calcium Magnesium Iron TIBC Ferritin AST ALT Lactate Dehydrogenase Troponin T C-Reactive Protein Total Protein Albumin Prealbumin Cholesterol LDL Cholesterol Direct HDL Cholesterol Urine WBC (Auto) Vancomycin Trough Coronavirus (PCR) Crossmatch 07/07/19 07/07/19 07/07/19 04:35 05:27 05:34 WBC 23.1 H RBC 3.00 L Hgb 8.1 L Hct 24.2 L MCV 81 L MCH 27 L MCHC RDW 20.6 H Plt Count Lymph % (Auto) [place] % (Auto) Lymph # [place] # Baso # Seg Neutrophils % Seg Neuts % (Manual) 90.0 H Lymphocytes % (Manual) 2.0 L Monocytes % (Manual) Nucleated RBC % Seg Neutrophils # Seg Neutrophils # Man 20.8 H Lymphocytes # (Manual) 0.5 L Monocytes # (Manual) Basophils # (Manual) PT INR D-Dimer ABG pH ABG pO2 65.8 L ABG HCO3 ABG O2 Saturation 92.2 L ABG Base Excess ABG Hemoglobin 8.3 L Oxyhemoglobin 90.6 L Sodium Potassium Chloride Carbon Dioxide BUN Creatinine Glucose POC Glucose 132 H Lactic Acid Calcium Magnesium Iron TIBC Ferritin AST ALT Lactate Dehydrogenase Troponin T C-Reactive Protein Total Protein Albumin Prealbumin Cholesterol LDL Cholesterol Direct HDL Cholesterol Urine WBC (Auto) Vancomycin Trough Coronavirus (PCR) Crossmatch 07/07/19 07/07/19 07/07/19 05:34 11:50 15:58 WBC RBC Hgb 8.1 L Hct 24.2 L MCV MCH MCHC RDW Plt Count Lymph % (Auto) [place] % (Auto) Lymph # [place] # Baso # Seg Neutrophils % Seg Neuts % (Manual) Lymphocytes % (Manual) Monocytes % (Manual) Nucleated RBC % Seg Neutrophils # Seg Neutrophils # Man Lymphocytes # (Manual) Monocytes # (Manual) Basophils # (Manual) PT INR D-Dimer ABG pH ABG pO2 ABG HCO3 ABG O2 Saturation ABG Base Excess ABG Hemoglobin Oxyhemoglobin Sodium 135 L Potassium 3.3 L Chloride Carbon Dioxide 20 L BUN 27 H Creatinine 0.6 L Glucose 121 H POC Glucose 123 H Lactic Acid Calcium 8.0 L Magnesium Iron TIBC Ferritin AST ALT Lactate Dehydrogenase Troponin T C-Reactive Protein Total Protein Albumin Prealbumin Cholesterol LDL Cholesterol Direct HDL Cholesterol Urine WBC (Auto) Vancomycin Trough Coronavirus (PCR) Crossmatch 07/07/19 07/07/19 07/07/19 17:42 22:00 23:53 WBC RBC Hgb 8.0 L Hct 23.4 L MCV MCH MCHC RDW Plt Count Lymph % (Auto) [place] % (Auto) Lymph # [place] # Baso # Seg Neutrophils % Seg Neuts % (Manual) Lymphocytes % (Manual) Monocytes % (Manual) Nucleated RBC % Seg Neutrophils # Seg Neutrophils # Man Lymphocytes # (Manual) Monocytes # (Manual) Basophils # (Manual) PT INR D-Dimer ABG pH ABG pO2 ABG HCO3 ABG O2 Saturation ABG Base Excess ABG Hemoglobin Oxyhemoglobin Sodium Potassium Chloride Carbon Dioxide BUN Creatinine Glucose POC Glucose 107 H 117 H Lactic Acid Calcium Magnesium Iron TIBC Ferritin AST ALT Lactate Dehydrogenase Troponin T C-Reactive Protein Total Protein Albumin Prealbumin Cholesterol LDL Cholesterol Direct HDL Cholesterol Urine WBC (Auto) Vancomycin Trough Coronavirus (PCR) Crossmatch 07/08/19 07/08/19 07/08/19 00:45 00:45 00:45 WBC RBC Hgb Hct MCV MCH MCHC RDW Plt Count Lymph % (Auto) [place] % (Auto) Lymph # [place] # Baso # Seg Neutrophils % Seg Neuts % (Manual) Lymphocytes % (Manual) Monocytes % (Manual) Nucleated RBC % Seg Neutrophils # Seg Neutrophils # Man Lymphocytes # (Manual) Monocytes # (Manual) Basophils # (Manual) PT INR D-Dimer 1142.18 H ABG pH ABG pO2 ABG HCO3 ABG O2 Saturation ABG Base Excess ABG Hemoglobin Oxyhemoglobin Sodium Potassium Chloride Carbon Dioxide BUN Creatinine Glucose POC Glucose Lactic Acid Calcium Magnesium Iron TIBC Ferritin 839.0 H AST ALT Lactate Dehydrogenase 253 H Troponin T C-Reactive Protein 18.90 H Total Protein Albumin Prealbumin Cholesterol LDL Cholesterol Direct HDL Cholesterol Urine WBC (Auto) Vancomycin Trough Coronavirus (PCR) Crossmatch 07/08/19 07/08/19 07/08/19 04:30 05:11 12:02 WBC RBC Hgb Hct MCV MCH MCHC RDW Plt Count Lymph % (Auto) [place] % (Auto) Lymph # [place] # Baso # Seg Neutrophils % Seg Neuts % (Manual) Lymphocytes % (Manual) Monocytes % (Manual) Nucleated RBC % Seg Neutrophils # Seg Neutrophils # Man Lymphocytes # (Manual) Monocytes # (Manual) Basophils # (Manual) PT INR D-Dimer ABG pH ABG pO2 66.0 L ABG HCO3 ABG O2 Saturation 92.3 L ABG Base Excess ABG Hemoglobin 7.7 L Oxyhemoglobin 90.7 L Sodium Potassium Chloride Carbon Dioxide BUN Creatinine Glucose POC Glucose 108 H 153 H Lactic Acid Calcium Magnesium Iron TIBC Ferritin AST ALT Lactate Dehydrogenase Troponin T C-Reactive Protein Total Protein Albumin Prealbumin Cholesterol LDL Cholesterol Direct HDL Cholesterol Urine WBC (Auto) Vancomycin Trough Coronavirus (PCR) Crossmatch 07/08/19 07/08/19 07/08/19 16:15 18:22 23:35 WBC RBC Hgb Hct MCV MCH MCHC RDW Plt Count Lymph % (Auto) [place] % (Auto) Lymph # [place] # Baso # Seg Neutrophils % Seg Neuts % (Manual) Lymphocytes % (Manual) Monocytes % (Manual) Nucleated RBC % Seg Neutrophils # Seg Neutrophils # Man Lymphocytes # (Manual) Monocytes # (Manual) Basophils # (Manual) PT INR D-Dimer ABG pH ABG pO2 ABG HCO3 ABG O2 Saturation ABG Base Excess ABG Hemoglobin Oxyhemoglobin Sodium 134 L Potassium 3.3 L Chloride Carbon Dioxide 21 L BUN 27 H Creatinine 0.6 L Glucose 146 H POC Glucose 134 H 133 H Lactic Acid Calcium Magnesium Iron TIBC Ferritin AST ALT Lactate Dehydrogenase Troponin T C-Reactive Protein Total Protein Albumin Prealbumin Cholesterol LDL Cholesterol Direct HDL Cholesterol Urine WBC (Auto) Vancomycin Trough Coronavirus (PCR) Crossmatch 07/09/19 07/09/19 07/09/19 04:30 04:30 05:00 WBC 18.9 H RBC 2.77 L Hgb 7.4 L Hct 22.8 L MCV 82 L MCH 27 L MCHC RDW 20.9 H Plt Count 130 L Lymph % (Auto) [place] % (Auto) Lymph # [place] # Baso # Seg Neutrophils % Seg Neuts % (Manual) 84.0 H Lymphocytes % (Manual) 0 L Monocytes % (Manual) Nucleated RBC % Seg Neutrophils # Seg Neutrophils # Man 15.9 H Lymphocytes # (Manual) 0.0 L Monocytes # (Manual) Basophils # (Manual) PT INR D-Dimer ABG pH ABG pO2 ABG HCO3 ABG O2 Saturation ABG Base Excess ABG Hemoglobin Oxyhemoglobin Sodium Potassium 3.1 L Chloride Carbon Dioxide BUN 26 H Creatinine 0.5 L Glucose 125 H POC Glucose 155 H Lactic Acid Calcium Magnesium Iron TIBC Ferritin AST ALT Lactate Dehydrogenase Troponin T C-Reactive Protein Total Protein Albumin Prealbumin Cholesterol LDL Cholesterol Direct HDL Cholesterol Urine WBC (Auto) Vancomycin Trough Coronavirus (PCR) Crossmatch 07/09/19 07/09/19 07/09/19 05:55 12:22 17:50 WBC RBC Hgb Hct MCV MCH MCHC RDW Plt Count Lymph % (Auto) [place] % (Auto) Lymph # [place] # Baso # Seg Neutrophils % Seg Neuts % (Manual) Lymphocytes % (Manual) Monocytes % (Manual) Nucleated RBC % Seg Neutrophils # Seg Neutrophils # Man Lymphocytes # (Manual) Monocytes # (Manual) Basophils # (Manual) PT INR D-Dimer ABG pH ABG pO2 62.8 L ABG HCO3 ABG O2 Saturation ABG Base Excess ABG Hemoglobin 6.1 L Oxyhemoglobin 93.9 L Sodium Potassium Chloride Carbon Dioxide BUN Creatinine Glucose POC Glucose 115 H 133 H Lactic Acid Calcium Magnesium Iron TIBC Ferritin AST ALT Lactate Dehydrogenase Troponin T C-Reactive Protein Total Protein Albumin Prealbumin Cholesterol LDL Cholesterol Direct HDL Cholesterol Urine WBC (Auto) Vancomycin Trough Coronavirus (PCR) Crossmatch 07/10/19 07/10/19 07/10/19 00:38 04:00 04:00 WBC RBC Hgb Hct MCV MCH MCHC RDW Plt Count Lymph % (Auto) [place] % (Auto) Lymph # [place] # Baso # Seg Neutrophils % Seg Neuts % (Manual) Lymphocytes % (Manual) Monocytes % (Manual) Nucleated RBC % Seg Neutrophils # Seg Neutrophils # Man Lymphocytes # (Manual) Monocytes # (Manual) Basophils # (Manual) PT INR D-Dimer ABG pH ABG pO2 ABG HCO3 ABG O2 Saturation ABG Base Excess ABG Hemoglobin Oxyhemoglobin Sodium Potassium Chloride 107.9 H Carbon Dioxide BUN 26 H Creatinine 0.4 L Glucose 137 H POC Glucose 122 H Lactic Acid Calcium Magnesium 1.50 L Iron TIBC Ferritin AST ALT Lactate Dehydrogenase 277 H Troponin T C-Reactive Protein 15.10 H Total Protein Albumin Prealbumin Cholesterol LDL Cholesterol Direct HDL Cholesterol Urine WBC (Auto) Vancomycin Trough Coronavirus (PCR) Crossmatch 04/21/20 04/21/20 04/21/20 04:07 05:21 17:25 WBC RBC Hgb Hct MCV MCH MCHC RDW Plt Count Lymph % (Auto) [place] % (Auto) Lymph # [place] # Baso # Seg Neutrophils % Seg Neuts % (Manual) Lymphocytes % (Manual) Monocytes % (Manual) Nucleated RBC % Seg Neutrophils # Seg Neutrophils # Man Lymphocytes # (Manual) Monocytes # (Manual) Basophils # (Manual) PT INR D-Dimer ABG pH ABG pO2 65.6 L ABG HCO3 26.3 H ABG O2 Saturation ABG Base Excess ABG Hemoglobin 6.7 L Oxyhemoglobin Sodium Potassium Chloride Carbon Dioxide BUN Creatinine Glucose POC Glucose 144 H 113 H Lactic Acid Calcium Magnesium Iron TIBC Ferritin AST ALT Lactate Dehydrogenase Troponin T C-Reactive Protein Total Protein Albumin Prealbumin Cholesterol LDL Cholesterol Direct HDL Cholesterol Urine WBC (Auto) Vancomycin Trough Coronavirus (PCR) Crossmatch 07/11/19 07/11/19 07/11/19 00:07 05:14 05:25 WBC RBC Hgb Hct MCV MCH MCHC RDW Plt Count Lymph % (Auto) [place] % (Auto) Lymph # [place] # Baso # Seg Neutrophils % Seg Neuts % (Manual) Lymphocytes % (Manual) Monocytes % (Manual) Nucleated RBC % Seg Neutrophils # Seg Neutrophils # Man Lymphocytes # (Manual) Monocytes # (Manual) Basophils # (Manual) PT INR D-Dimer ABG pH ABG pO2 ABG HCO3 ABG O2 Saturation ABG Base Excess ABG Hemoglobin 5.8 L Oxyhemoglobin Sodium Potassium Chloride 108.0 H Carbon Dioxide BUN 26 H Creatinine 0.4 L Glucose 110 H POC Glucose 121 H Lactic Acid Calcium Magnesium Iron TIBC Ferritin AST ALT Lactate Dehydrogenase Troponin T C-Reactive Protein Total Protein Albumin Prealbumin Cholesterol LDL Cholesterol Direct HDL Cholesterol Urine WBC (Auto) Vancomycin Trough Coronavirus (PCR) Crossmatch 07/11/19 07/11/19 07/11/19 12:27 18:00 23:42 WBC RBC Hgb Hct MCV MCH MCHC RDW Plt Count Lymph % (Auto) [place] % (Auto) Lymph # [place] # Baso # Seg Neutrophils % Seg Neuts % (Manual) Lymphocytes % (Manual) Monocytes % (Manual) Nucleated RBC % Seg Neutrophils # Seg Neutrophils # Man Lymphocytes # (Manual) Monocytes # (Manual) Basophils # (Manual) PT INR D-Dimer ABG pH ABG pO2 ABG HCO3 ABG O2 Saturation ABG Base Excess ABG Hemoglobin Oxyhemoglobin Sodium Potassium Chloride Carbon Dioxide BUN Creatinine Glucose POC Glucose 158 H 141 H 142 H Lactic Acid Calcium Magnesium Iron TIBC Ferritin AST ALT Lactate Dehydrogenase Troponin T C-Reactive Protein Total Protein Albumin Prealbumin Cholesterol LDL Cholesterol Direct HDL Cholesterol Urine WBC (Auto) Vancomycin Trough Coronavirus (PCR) Crossmatch 07/12/19 07/12/19 07/12/19 04:46 04:46 05:23 WBC 23.6 H RBC 2.51 L Hgb 6.7 L Hct 20.8 L MCV 83 L MCH 27 L MCHC RDW 20.3 H Plt Count Lymph % (Auto) [place] % (Auto) Lymph # [place] # Baso # Seg Neutrophils % Seg Neuts % (Manual) 94.0 H Lymphocytes % (Manual) 4.0 L Monocytes % (Manual) Nucleated RBC % Seg Neutrophils # Seg Neutrophils # Man 22.2 H Lymphocytes # (Manual) 0.9 L Monocytes # (Manual) Basophils # (Manual) PT INR D-Dimer ABG pH ABG pO2 ABG HCO3 ABG O2 Saturation ABG Base Excess ABG Hemoglobin Oxyhemoglobin Sodium Potassium Chloride 107.1 H Carbon Dioxide BUN 25 H Creatinine 0.4 L Glucose 122 H POC Glucose 118 H Lactic Acid Calcium Magnesium Iron TIBC Ferritin AST ALT Lactate Dehydrogenase Troponin T C-Reactive Protein Total Protein Albumin Prealbumin Cholesterol LDL Cholesterol Direct HDL Cholesterol Urine WBC (Auto) Vancomycin Trough Coronavirus (PCR) Crossmatch 07/12/19 07/12/19 07/12/19 08:49 11:36 18:15 WBC RBC Hgb Hct MCV MCH MCHC RDW Plt Count Lymph % (Auto) [place] % (Auto) Lymph # [place] # Baso # Seg Neutrophils % Seg Neuts % (Manual) Lymphocytes % (Manual) Monocytes % (Manual) Nucleated RBC % Seg Neutrophils # Seg Neutrophils # Man Lymphocytes # (Manual) Monocytes # (Manual) Basophils # (Manual) PT INR D-Dimer ABG pH ABG pO2 ABG HCO3 ABG O2 Saturation ABG Base Excess ABG Hemoglobin Oxyhemoglobin Sodium Potassium Chloride Carbon Dioxide BUN Creatinine Glucose POC Glucose 124 H 110 H Lactic Acid Calcium Magnesium Iron TIBC Ferritin AST ALT Lactate Dehydrogenase Troponin T C-Reactive Protein Total Protein Albumin Prealbumin Cholesterol LDL Cholesterol Direct HDL Cholesterol Urine WBC (Auto) Vancomycin Trough Coronavirus (PCR) Crossmatch See Detail 07/12/19 07/13/19 07/13/19 23:16 05:26 06:50 WBC 23.9 H RBC 2.58 L Hgb 6.9 L Hct 21.5 L MCV 83 L MCH 27 L MCHC RDW 19.0 H Plt Count Lymph % (Auto) [place] % (Auto) Lymph # [place] # Baso # Seg Neutrophils % Seg Neuts % (Manual) 96.0 H Lymphocytes % (Manual) 3.0 L Monocytes % (Manual) Nucleated RBC % Seg Neutrophils # Seg Neutrophils # Man 22.9 H Lymphocytes # (Manual) 0.7 L Monocytes # (Manual) Basophils # (Manual) PT INR D-Dimer ABG pH ABG pO2 ABG HCO3 ABG O2 Saturation ABG Base Excess ABG Hemoglobin Oxyhemoglobin Sodium Potassium Chloride Carbon Dioxide BUN Creatinine Glucose POC Glucose 108 H 126 H Lactic Acid Calcium Magnesium Iron TIBC Ferritin AST ALT Lactate Dehydrogenase Troponin T C-Reactive Protein Total Protein Albumin Prealbumin Cholesterol LDL Cholesterol Direct HDL Cholesterol Urine WBC (Auto) Vancomycin Trough Coronavirus (PCR) Crossmatch 07/13/19 07/13/19 07/13/19 06:50 12:38 18:05 WBC RBC Hgb Hct MCV MCH MCHC RDW Plt Count Lymph % (Auto) [place] % (Auto) Lymph # [place] # Baso # Seg Neutrophils % Seg Neuts % (Manual) Lymphocytes % (Manual) Monocytes % (Manual) Nucleated RBC % Seg Neutrophils # Seg Neutrophils # Man Lymphocytes # (Manual) Monocytes # (Manual) Basophils # (Manual) PT INR D-Dimer ABG pH ABG pO2 ABG HCO3 ABG O2 Saturation ABG Base Excess ABG Hemoglobin Oxyhemoglobin Sodium Potassium Chloride Carbon Dioxide BUN 33 H Creatinine 0.5 L Glucose 136 H POC Glucose 164 H 145 H Lactic Acid Calcium Magnesium Iron TIBC Ferritin AST ALT Lactate Dehydrogenase Troponin T C-Reactive Protein Total Protein Albumin Prealbumin Cholesterol LDL Cholesterol Direct HDL Cholesterol Urine WBC (Auto) Vancomycin Trough Coronavirus (PCR) Crossmatch 07/13/19 07/14/19 07/14/19 18:30 00:21 04:40 WBC 22.9 H RBC 2.45 L Hgb 6.6 L Hct 21.1 L MCV MCH 27 L MCHC 31 L RDW 19.2 H Plt Count Lymph % (Auto) [place] % (Auto) Lymph # [place] # Baso # Seg Neutrophils % Seg Neuts % (Manual) 91.0 H Lymphocytes % (Manual) 7.0 L Monocytes % (Manual) Nucleated RBC % Seg Neutrophils # Seg Neutrophils # Man 20.8 H Lymphocytes # (Manual) Monocytes # (Manual) Basophils # (Manual) PT INR D-Dimer ABG pH ABG pO2 58.1 L ABG HCO3 ABG O2 Saturation 88.7 L ABG Base Excess ABG Hemoglobin 7.8 L Oxyhemoglobin 86.8 L Sodium Potassium Chloride Carbon Dioxide BUN Creatinine Glucose POC Glucose 118 H Lactic Acid Calcium Magnesium Iron TIBC Ferritin AST ALT Lactate Dehydrogenase Troponin T C-Reactive Protein Total Protein Albumin Prealbumin Cholesterol LDL Cholesterol Direct HDL Cholesterol Urine WBC (Auto) Vancomycin Trough Coronavirus (PCR) Crossmatch 07/14/19 07/14/19 07/14/19 04:40 05:38 05:45 WBC RBC Hgb Hct MCV MCH MCHC RDW Plt Count Lymph % (Auto) [place] % (Auto) Lymph # [place] # Baso # Seg Neutrophils % Seg Neuts % (Manual) Lymphocytes % (Manual) Monocytes % (Manual) Nucleated RBC % Seg Neutrophils # Seg Neutrophils # Man Lymphocytes # (Manual) Monocytes # (Manual) Basophils # (Manual) PT INR D-Dimer ABG pH 7.230 L ABG pO2 72.1 L ABG HCO3 ABG O2 Saturation 89.3 L ABG Base Excess -2.7 L ABG Hemoglobin 6.7 L Oxyhemoglobin 87.7 L Sodium Potassium Chloride 107.4 H Carbon Dioxide BUN 45 H Creatinine Glucose 101 H POC Glucose 154 H Lactic Acid Calcium Magnesium Iron TIBC Ferritin AST ALT Lactate Dehydrogenase Troponin T C-Reactive Protein Total Protein Albumin Prealbumin Cholesterol LDL Cholesterol Direct HDL Cholesterol Urine WBC (Auto) Vancomycin Trough Coronavirus (PCR) Crossmatch 07/14/19 07/14/19 07/14/19 12:25 18:20 19:01 WBC 22.4 H RBC 2.70 L Hgb 7.5 L Hct 23.3 L MCV MCH MCHC RDW 19.5 H Plt Count Lymph % (Auto) [place] % (Auto) Lymph # [place] # Baso # Seg Neutrophils % Seg Neuts % (Manual) Lymphocytes % (Manual) Monocytes % (Manual) Nucleated RBC % Seg Neutrophils # Seg Neutrophils # Man Lymphocytes # (Manual) Monocytes # (Manual) Basophils # (Manual) PT INR D-Dimer ABG pH ABG pO2 ABG HCO3 ABG O2 Saturation ABG Base Excess ABG Hemoglobin Oxyhemoglobin Sodium Potassium Chloride Carbon Dioxide BUN Creatinine Glucose POC Glucose 136 H 131 H Lactic Acid Calcium Magnesium Iron TIBC Ferritin AST ALT Lactate Dehydrogenase Troponin T C-Reactive Protein Total Protein Albumin Prealbumin Cholesterol LDL Cholesterol Direct HDL Cholesterol Urine WBC (Auto) Vancomycin Trough Coronavirus (PCR) Crossmatch 07/15/19 07/15/19 07/15/19 00:17 04:35 05:18 WBC 20.6 H RBC 2.41 L Hgb 6.8 L Hct 20.7 L MCV MCH MCHC RDW 20.2 H Plt Count Lymph % (Auto) [place] % (Auto) Lymph # [place] # Baso # Seg Neutrophils % Seg Neuts % (Manual) 92.0 H Lymphocytes % (Manual) 5.0 L Monocytes % (Manual) Nucleated RBC % Seg Neutrophils # Seg Neutrophils # Man 19.0 H Lymphocytes # (Manual) 1.0 L Monocytes # (Manual) Basophils # (Manual) PT INR D-Dimer ABG pH 7.342 L ABG pO2 ABG HCO3 ABG O2 Saturation ABG Base Excess -3.1 L ABG Hemoglobin 7.2 L Oxyhemoglobin 94.9 L Sodium Potassium Chloride Carbon Dioxide BUN Creatinine Glucose POC Glucose 116 H Lactic Acid Calcium Magnesium Iron TIBC Ferritin AST ALT Lactate Dehydrogenase Troponin T C-Reactive Protein Total Protein Albumin Prealbumin Cholesterol LDL Cholesterol Direct HDL Cholesterol Urine WBC (Auto) Vancomycin Trough Coronavirus (PCR) Crossmatch 07/15/19 07/15/19 07/15/19 05:18 05:57 11:28 WBC RBC Hgb Hct MCV MCH MCHC RDW Plt Count Lymph % (Auto) [place] % (Auto) Lymph # [place] # Baso # Seg Neutrophils % Seg Neuts % (Manual) Lymphocytes % (Manual) Monocytes % (Manual) Nucleated RBC % Seg Neutrophils # Seg Neutrophils # Man Lymphocytes # (Manual) Monocytes # (Manual) Basophils # (Manual) PT INR D-Dimer ABG pH ABG pO2 ABG HCO3 ABG O2 Saturation ABG Base Excess ABG Hemoglobin Oxyhemoglobin Sodium Potassium Chloride Carbon Dioxide 20 L BUN 59 H Creatinine Glucose 140 H POC Glucose 139 H 117 H Lactic Acid Calcium Magnesium Iron TIBC Ferritin AST ALT Lactate Dehydrogenase Troponin T C-Reactive Protein Total Protein Albumin Prealbumin Cholesterol LDL Cholesterol Direct HDL Cholesterol Urine WBC (Auto) Vancomycin Trough Coronavirus (PCR) Crossmatch 07/15/19 07/16/19 07/16/19 18:13 00:06 03:43 WBC RBC Hgb Hct MCV MCH MCHC RDW Plt Count Lymph % (Auto) [place] % (Auto) Lymph # [place] # Baso # Seg Neutrophils % Seg Neuts % (Manual) Lymphocytes % (Manual) Monocytes % (Manual) Nucleated RBC % Seg Neutrophils # Seg Neutrophils # Man Lymphocytes # (Manual) Monocytes # (Manual) Basophils # (Manual) PT INR D-Dimer ABG pH 7.344 L ABG pO2 68.6 L ABG HCO3 ABG O2 Saturation ABG Base Excess -3.5 L ABG Hemoglobin 6.1 L Oxyhemoglobin 93.3 L Sodium Potassium Chloride Carbon Dioxide BUN Creatinine Glucose POC Glucose 114 H 119 H Lactic Acid Calcium Magnesium Iron TIBC Ferritin AST ALT Lactate Dehydrogenase Troponin T C-Reactive Protein Total Protein Albumin Prealbumin Cholesterol LDL Cholesterol Direct HDL Cholesterol Urine WBC (Auto) Vancomycin Trough Coronavirus (PCR) Crossmatch 07/16/19 07/16/19 07/16/19 04:41 04:41 12:09 WBC 19.6 H RBC 2.81 L Hgb 7.7 L Hct 24.0 L MCV MCH 27 L MCHC RDW 19.4 H Plt Count 514 H Lymph % (Auto) 6.7 L [place] % (Auto) Lymph # [place] # 1.0 H Baso # Seg Neutrophils % 87.0 H Seg Neuts % (Manual) Lymphocytes % (Manual) Monocytes % (Manual) Nucleated RBC % Seg Neutrophils # 17.0 H Seg Neutrophils # Man Lymphocytes # (Manual) Monocytes # (Manual) Basophils # (Manual) PT INR D-Dimer ABG pH ABG pO2 ABG HCO3 ABG O2 Saturation ABG Base Excess ABG Hemoglobin Oxyhemoglobin Sodium Potassium 5.9 H Chloride Carbon Dioxide 21 L BUN 73 H Creatinine 2.0 H Glucose POC Glucose 141 H Lactic Acid Calcium Magnesium Iron TIBC Ferritin AST ALT Lactate Dehydrogenase Troponin T C-Reactive Protein Total Protein Albumin Prealbumin Cholesterol LDL Cholesterol Direct HDL Cholesterol Urine WBC (Auto) Vancomycin Trough Coronavirus (PCR) Crossmatch 07/16/19 07/16/19 07/17/19 16:19 17:45 00:16 WBC RBC Hgb Hct MCV MCH MCHC RDW Plt Count Lymph % (Auto) [place] % (Auto) Lymph # [place] # Baso # Seg Neutrophils % Seg Neuts % (Manual) Lymphocytes % (Manual) Monocytes % (Manual) Nucleated RBC % Seg Neutrophils # Seg Neutrophils # Man Lymphocytes # (Manual) Monocytes # (Manual) Basophils # (Manual) PT INR D-Dimer ABG pH ABG pO2 ABG HCO3 ABG O2 Saturation ABG Base Excess ABG Hemoglobin Oxyhemoglobin Sodium Potassium 5.1 H Chloride Carbon Dioxide 20 L BUN 72 H Creatinine 1.7 H Glucose 128 H POC Glucose 181 H 164 H Lactic Acid Calcium Magnesium Iron TIBC Ferritin AST ALT Lactate Dehydrogenase Troponin T C-Reactive Protein Total Protein Albumin Prealbumin Cholesterol LDL Cholesterol Direct HDL Cholesterol Urine WBC (Auto) Vancomycin Trough Coronavirus (PCR) Crossmatch 07/17/19 07/17/19 07/17/19 04:20 04:39 04:39 WBC 16.1 H RBC 2.92 L Hgb 8.0 L Hct 25.5 L MCV MCH MCHC 31 L RDW 19.7 H Plt Count 564 H Lymph % (Auto) 3.6 L [place] % (Auto) 7.4 H Lymph # 0.6 L [place] # 1.2 H Baso # Seg Neutrophils % 87.5 H Seg Neuts % (Manual) Lymphocytes % (Manual) Monocytes % (Manual) Nucleated RBC % Seg Neutrophils # 14.1 H Seg Neutrophils # Man Lymphocytes # (Manual) Monocytes # (Manual) Basophils # (Manual) PT INR D-Dimer ABG pH 7.231 L ABG pO2 95.3 H ABG HCO3 ABG O2 Saturation ABG Base Excess -5.0 L ABG Hemoglobin 7.9 L Oxyhemoglobin 94.8 L Sodium Potassium Chloride 107.8 H Carbon Dioxide 21 L BUN 68 H Creatinine Glucose POC Glucose Lactic Acid Calcium Magnesium Iron TIBC Ferritin AST ALT Lactate Dehydrogenase Troponin T C-Reactive Protein Total Protein Albumin Prealbumin Cholesterol LDL Cholesterol Direct HDL Cholesterol Urine WBC (Auto) Vancomycin Trough Coronavirus (PCR) Crossmatch 07/17/19 07/17/19 07/17/19 05:28 12:11 18:48 WBC RBC Hgb Hct MCV MCH MCHC RDW Plt Count Lymph % (Auto) [place] % (Auto) Lymph # [place] # Baso # Seg Neutrophils % Seg Neuts % (Manual) Lymphocytes % (Manual) Monocytes % (Manual) Nucleated RBC % Seg Neutrophils # Seg Neutrophils # Man Lymphocytes # (Manual) Monocytes # (Manual) Basophils # (Manual) PT INR D-Dimer ABG pH ABG pO2 ABG HCO3 ABG O2 Saturation ABG Base Excess ABG Hemoglobin Oxyhemoglobin Sodium Potassium Chloride Carbon Dioxide BUN Creatinine Glucose POC Glucose 121 H 125 H 174 H Lactic Acid Calcium Magnesium Iron TIBC Ferritin AST ALT Lactate Dehydrogenase Troponin T C-Reactive Protein Total Protein Albumin Prealbumin Cholesterol LDL Cholesterol Direct HDL Cholesterol Urine WBC (Auto) Vancomycin Trough Coronavirus (PCR) Crossmatch 07/17/19 07/17/19 07/18/19 19:55 23:57 02:30 WBC RBC Hgb Hct MCV MCH MCHC RDW Plt Count Lymph % (Auto) [place] % (Auto) Lymph # [place] # Baso # Seg Neutrophils % Seg Neuts % (Manual) Lymphocytes % (Manual) Monocytes % (Manual) Nucleated RBC % Seg Neutrophils # Seg Neutrophils # Man Lymphocytes # (Manual) Monocytes # (Manual) Basophils # (Manual) PT INR D-Dimer ABG pH 7.344 L 7.294 L ABG pO2 78.5 L 119.2 H ABG HCO3 ABG O2 Saturation ABG Base Excess -3.3 L -2.6 L ABG Hemoglobin 8.6 L 8.1 L Oxyhemoglobin 94.8 L Sodium Potassium Chloride Carbon Dioxide BUN Creatinine Glucose POC Glucose 148 H Lactic Acid Calcium Magnesium Iron TIBC Ferritin AST ALT Lactate Dehydrogenase Troponin T C-Reactive Protein Total Protein Albumin Prealbumin Cholesterol LDL Cholesterol Direct HDL Cholesterol Urine WBC (Auto) Vancomycin Trough Coronavirus (PCR) Crossmatch 07/18/19 07/18/19 07/18/19 04:49 05:22 05:22 WBC 15.9 H RBC 3.00 L Hgb 8.1 L Hct 26.0 L MCV MCH 27 L MCHC 31 L RDW 19.4 H Plt Count 733 H Lymph % (Auto) 6.3 L [place] % (Auto) 7.4 H Lymph # 1.0 L [place] # 1.2 H Baso # 0.2 H Seg Neutrophils % 83.8 H Seg Neuts % (Manual) Lymphocytes % (Manual) Monocytes % (Manual) Nucleated RBC % Seg Neutrophils # 13.3 H Seg Neutrophils # Man Lymphocytes # (Manual) Monocytes # (Manual) Basophils # (Manual) PT INR D-Dimer ABG pH ABG pO2 ABG HCO3 ABG O2 Saturation ABG Base Excess ABG Hemoglobin Oxyhemoglobin Sodium Potassium Chloride 110.6 H Carbon Dioxide BUN 61 H Creatinine Glucose 109 H POC Glucose 116 H Lactic Acid Calcium Magnesium Iron TIBC Ferritin AST ALT Lactate Dehydrogenase Troponin T C-Reactive Protein Total Protein Albumin Prealbumin Cholesterol LDL Cholesterol Direct HDL Cholesterol Urine WBC (Auto) Vancomycin Trough Coronavirus (PCR) Crossmatch 07/18/19 07/18/19 07/18/19 12:23 18:06 22:20 WBC RBC Hgb Hct MCV MCH MCHC RDW Plt Count Lymph % (Auto) [place] % (Auto) Lymph # [place] # Baso # Seg Neutrophils % Seg Neuts % (Manual) Lymphocytes % (Manual) Monocytes % (Manual) Nucleated RBC % Seg Neutrophils # Seg Neutrophils # Man Lymphocytes # (Manual) Monocytes # (Manual) Basophils # (Manual) PT INR D-Dimer ABG pH 7.338 L ABG pO2 135.1 H ABG HCO3 ABG O2 Saturation ABG Base Excess ABG Hemoglobin 9.2 L Oxyhemoglobin Sodium Potassium Chloride Carbon Dioxide BUN Creatinine Glucose POC Glucose 114 H 113 H Lactic Acid Calcium Magnesium Iron TIBC Ferritin AST ALT Lactate Dehydrogenase Troponin T C-Reactive Protein Total Protein Albumin Prealbumin Cholesterol LDL Cholesterol Direct HDL Cholesterol Urine WBC (Auto) Vancomycin Trough Coronavirus (PCR) Crossmatch 07/18/19 07/19/19 07/19/19 23:33 03:45 05:18 WBC RBC Hgb Hct MCV MCH MCHC RDW Plt Count Lymph % (Auto) [place] % (Auto) Lymph # [place] # Baso # Seg Neutrophils % Seg Neuts % (Manual) Lymphocytes % (Manual) Monocytes % (Manual) Nucleated RBC % Seg Neutrophils # Seg Neutrophils # Man Lymphocytes # (Manual) Monocytes # (Manual) Basophils # (Manual) PT INR D-Dimer ABG pH 7.342 L ABG pO2 95.0 H ABG HCO3 ABG O2 Saturation ABG Base Excess ABG Hemoglobin 8.5 L Oxyhemoglobin Sodium Potassium Chloride Carbon Dioxide BUN Creatinine Glucose POC Glucose 125 H 111 H Lactic Acid Calcium Magnesium Iron TIBC Ferritin AST ALT Lactate Dehydrogenase Troponin T C-Reactive Protein Total Protein Albumin Prealbumin Cholesterol LDL Cholesterol Direct HDL Cholesterol Urine WBC (Auto) Vancomycin Trough Coronavirus (PCR) Crossmatch 07/19/19 07/19/19 07/19/19 08:45 08:45 11:47 WBC 15.9 H RBC 3.31 L Hgb 9.1 L Hct 28.4 L MCV MCH 27 L MCHC RDW 19.1 H Plt Count 858 H Lymph % (Auto) 4.9 L [place] % (Auto) 8.1 H Lymph # 0.8 L [place] # 1.3 H Baso # Seg Neutrophils % 85.5 H Seg Neuts % (Manual) Lymphocytes % (Manual) Monocytes % (Manual) Nucleated RBC % Seg Neutrophils # 13.6 H Seg Neutrophils # Man Lymphocytes # (Manual) Monocytes # (Manual) Basophils # (Manual) PT INR D-Dimer ABG pH ABG pO2 ABG HCO3 ABG O2 Saturation ABG Base Excess ABG Hemoglobin Oxyhemoglobin Sodium Potassium Chloride 111.6 H Carbon Dioxide BUN 50 H Creatinine 0.7 L Glucose 118 H POC Glucose 114 H Lactic Acid Calcium Magnesium Iron TIBC Ferritin AST ALT Lactate Dehydrogenase Troponin T C-Reactive Protein Total Protein Albumin Prealbumin Cholesterol LDL Cholesterol Direct HDL Cholesterol Urine WBC (Auto) Vancomycin Trough Coronavirus (PCR) Crossmatch 07/19/19 07/19/19 07/20/19 18:25 23:44 04:39 WBC RBC Hgb Hct MCV MCH MCHC RDW Plt Count Lymph % (Auto) [place] % (Auto) Lymph # [place] # Baso # Seg Neutrophils % Seg Neuts % (Manual) Lymphocytes % (Manual) Monocytes % (Manual) Nucleated RBC % Seg Neutrophils # Seg Neutrophils # Man Lymphocytes # (Manual) Monocytes # (Manual) Basophils # (Manual) PT INR D-Dimer ABG pH ABG pO2 ABG HCO3 ABG O2 Saturation ABG Base Excess ABG Hemoglobin Oxyhemoglobin Sodium Potassium Chloride 110.3 H Carbon Dioxide BUN 44 H Creatinine 0.6 L Glucose 120 H POC Glucose 115 H 117 H Lactic Acid Calcium Magnesium Iron TIBC Ferritin AST ALT Lactate Dehydrogenase Troponin T C-Reactive Protein Total Protein Albumin Prealbumin Cholesterol LDL Cholesterol Direct HDL Cholesterol Urine WBC (Auto) Vancomycin Trough Coronavirus (PCR) Crossmatch 07/20/19 07/21/19 07/21/19 05:30 11:59 17:40 WBC RBC Hgb Hct MCV MCH MCHC RDW Plt Count Lymph % (Auto) [place] % (Auto) Lymph # [place] # Baso # Seg Neutrophils % Seg Neuts % (Manual) Lymphocytes % (Manual) Monocytes % (Manual) Nucleated RBC % Seg Neutrophils # Seg Neutrophils # Man Lymphocytes # (Manual) Monocytes # (Manual) Basophils # (Manual) PT INR D-Dimer ABG pH ABG pO2 ABG HCO3 ABG O2 Saturation ABG Base Excess ABG Hemoglobin Oxyhemoglobin Sodium Potassium Chloride Carbon Dioxide BUN Creatinine Glucose POC Glucose 131 H 122 H 125 H Lactic Acid Calcium Magnesium Iron TIBC Ferritin AST ALT Lactate Dehydrogenase Troponin T C-Reactive Protein Total Protein Albumin Prealbumin Cholesterol LDL Cholesterol Direct HDL Cholesterol Urine WBC (Auto) Vancomycin Trough Coronavirus (PCR) Crossmatch 07/22/19 07/22/19 07/22/19 05:38 05:38 12:29 WBC 12.6 H RBC 3.19 L Hgb 8.9 L Hct 27.5 L MCV MCH MCHC RDW 18.9 H Plt Count 1101 H* Lymph % (Auto) [place] % (Auto) 12.2 H Lymph # [place] # 1.5 H Baso # Seg Neutrophils % 72.8 H Seg Neuts % (Manual) 76.0 H Lymphocytes % (Manual) 7.0 L Monocytes % (Manual) 14.0 H Nucleated RBC % 1.0 H Seg Neutrophils # 9.2 H Seg Neutrophils # Man 9.6 H Lymphocytes # (Manual) 0.9 L Monocytes # (Manual) 1.8 H Basophils # (Manual) PT INR D-Dimer ABG pH ABG pO2 ABG HCO3 ABG O2 Saturation ABG Base Excess ABG Hemoglobin Oxyhemoglobin Sodium Potassium 3.4 L Chloride Carbon Dioxide BUN 29 H Creatinine 0.5 L Glucose POC Glucose 116 H Lactic Acid Calcium Magnesium Iron TIBC Ferritin AST ALT Lactate Dehydrogenase Troponin T C-Reactive Protein Total Protein Albumin Prealbumin Cholesterol LDL Cholesterol Direct HDL Cholesterol Urine WBC (Auto) Vancomycin Trough Coronavirus (PCR) Crossmatch 07/22/19 07/22/19 07/23/19 18:20 23:51 04:52 WBC RBC Hgb Hct MCV MCH MCHC RDW Plt Count Lymph % (Auto) [place] % (Auto) Lymph # [place] # Baso # Seg Neutrophils % Seg Neuts % (Manual) Lymphocytes % (Manual) Monocytes % (Manual) Nucleated RBC % Seg Neutrophils # Seg Neutrophils # Man Lymphocytes # (Manual) Monocytes # (Manual) Basophils # (Manual) PT INR D-Dimer ABG pH ABG pO2 ABG HCO3 ABG O2 Saturation ABG Base Excess ABG Hemoglobin Oxyhemoglobin Sodium Potassium Chloride Carbon Dioxide BUN 24 H Creatinine 0.4 L Glucose POC Glucose 107 H 110 H Lactic Acid Calcium Magnesium Iron TIBC Ferritin AST ALT Lactate Dehydrogenase Troponin T C-Reactive Protein Total Protein Albumin Prealbumin Cholesterol LDL Cholesterol Direct HDL Cholesterol Urine WBC (Auto) Vancomycin Trough Coronavirus (PCR) Crossmatch 07/23/19 07/23/19 07/24/19 06:00 23:15 04:40 WBC RBC Hgb Hct MCV MCH MCHC RDW Plt Count Lymph % (Auto) [place] % (Auto) Lymph # [place] # Baso # Seg Neutrophils % Seg Neuts % (Manual) Lymphocytes % (Manual) Monocytes % (Manual) Nucleated RBC % Seg Neutrophils # Seg Neutrophils # Man Lymphocytes # (Manual) Monocytes # (Manual) Basophils # (Manual) PT INR D-Dimer ABG pH ABG pO2 73.5 L ABG HCO3 27.0 H 28.5 H ABG O2 Saturation 94.5 L ABG Base Excess ABG Hemoglobin 9.4 L 8.9 L Oxyhemoglobin 94.0 L 92.7 L Sodium Potassium Chloride Carbon Dioxide BUN Creatinine Glucose POC Glucose 117 H Lactic Acid Calcium Magnesium Iron TIBC Ferritin AST ALT Lactate Dehydrogenase Troponin T C-Reactive Protein Total Protein Albumin Prealbumin Cholesterol LDL Cholesterol Direct HDL Cholesterol Urine WBC (Auto) Vancomycin Trough Coronavirus (PCR) Crossmatch 07/24/19 07/24/19 07/25/19 05:25 12:06 00:16 WBC RBC Hgb Hct MCV MCH MCHC RDW Plt Count Lymph % (Auto) [place] % (Auto) Lymph # [place] # Baso # Seg Neutrophils % Seg Neuts % (Manual) Lymphocytes % (Manual) Monocytes % (Manual) Nucleated RBC % Seg Neutrophils # Seg Neutrophils # Man Lymphocytes # (Manual) Monocytes # (Manual) Basophils # (Manual) PT INR D-Dimer ABG pH ABG pO2 ABG HCO3 ABG O2 Saturation ABG Base Excess ABG Hemoglobin Oxyhemoglobin Sodium Potassium Chloride Carbon Dioxide BUN Creatinine Glucose POC Glucose 114 H 108 H 106 H Lactic Acid Calcium Magnesium Iron TIBC Ferritin AST ALT Lactate Dehydrogenase Troponin T C-Reactive Protein Total Protein Albumin Prealbumin Cholesterol LDL Cholesterol Direct HDL Cholesterol Urine WBC (Auto) Vancomycin Trough Coronavirus (PCR) Crossmatch 07/25/19 07/25/19 07/25/19 05:14 05:14 05:17 WBC 17.8 H RBC 3.32 L Hgb 9.2 L Hct 28.6 L MCV MCH MCHC RDW 19.9 H Plt Count 994 H Lymph % (Auto) [place] % (Auto) Lymph # [place] # Baso # Seg Neutrophils % Seg Neuts % (Manual) 82.0 H Lymphocytes % (Manual) 5.0 L Monocytes % (Manual) Nucleated RBC % Seg Neutrophils # Seg Neutrophils # Man 14.6 H Lymphocytes # (Manual) 0.9 L Monocytes # (Manual) 1.2 H Basophils # (Manual) PT INR D-Dimer ABG pH ABG pO2 ABG HCO3 ABG O2 Saturation ABG Base Excess ABG Hemoglobin Oxyhemoglobin Sodium Potassium Chloride Carbon Dioxide BUN Creatinine 0.4 L Glucose 110 H POC Glucose 107 H Lactic Acid Calcium Magnesium Iron TIBC Ferritin AST ALT Lactate Dehydrogenase Troponin T C-Reactive Protein Total Protein Albumin Prealbumin Cholesterol LDL Cholesterol Direct HDL Cholesterol Urine WBC (Auto) Vancomycin Trough Coronavirus (PCR) Crossmatch 07/25/19 07/25/19 07/26/19 11:55 23:49 06:01 WBC RBC Hgb Hct MCV MCH MCHC RDW Plt Count Lymph % (Auto) [place] % (Auto) Lymph # [place] # Baso # Seg Neutrophils % Seg Neuts % (Manual) Lymphocytes % (Manual) Monocytes % (Manual) Nucleated RBC % Seg Neutrophils # Seg Neutrophils # Man Lymphocytes # (Manual) Monocytes # (Manual) Basophils # (Manual) PT INR D-Dimer ABG pH ABG pO2 ABG HCO3 ABG O2 Saturation ABG Base Excess ABG Hemoglobin Oxyhemoglobin Sodium Potassium Chloride Carbon Dioxide BUN Creatinine Glucose POC Glucose 123 H 118 H 106 H Lactic Acid Calcium Magnesium Iron TIBC Ferritin AST ALT Lactate Dehydrogenase Troponin T C-Reactive Protein Total Protein Albumin Prealbumin Cholesterol LDL Cholesterol Direct HDL Cholesterol Urine WBC (Auto) Vancomycin Trough Coronavirus (PCR) Crossmatch 07/26/19 07/27/19 07/27/19 17:02 00:28 05:16 WBC RBC Hgb Hct MCV MCH MCHC RDW Plt Count Lymph % (Auto) [place] % (Auto) Lymph # [place] # Baso # Seg Neutrophils % Seg Neuts % (Manual) Lymphocytes % (Manual) Monocytes % (Manual) Nucleated RBC % Seg Neutrophils # Seg Neutrophils # Man Lymphocytes # (Manual) Monocytes # (Manual) Basophils # (Manual) PT INR D-Dimer ABG pH ABG pO2 63.4 L ABG HCO3 31.3 H ABG O2 Saturation 92.7 L ABG Base Excess 6.3 H ABG Hemoglobin 7.6 L Oxyhemoglobin 90.9 L Sodium Potassium Chloride Carbon Dioxide BUN Creatinine Glucose POC Glucose 116 H 158 H Lactic Acid Calcium Magnesium Iron TIBC Ferritin AST ALT Lactate Dehydrogenase Troponin T C-Reactive Protein Total Protein Albumin Prealbumin Cholesterol LDL Cholesterol Direct HDL Cholesterol Urine WBC (Auto) Vancomycin Trough Coronavirus (PCR) Crossmatch 07/28/19 07/28/19 07/28/19 10:13 10:13 23:54 WBC 18.5 H RBC 3.20 L Hgb 8.8 L Hct 26.8 L MCV MCH 27 L MCHC RDW 19.9 H Plt Count 730 H Lymph % (Auto) [place] % (Auto) Lymph # [place] # Baso # Seg Neutrophils % Seg Neuts % (Manual) Lymphocytes % (Manual) Monocytes % (Manual) Nucleated RBC % Seg Neutrophils # Seg Neutrophils # Man Lymphocytes # (Manual) Monocytes # (Manual) Basophils # (Manual) PT INR D-Dimer ABG pH ABG pO2 ABG HCO3 ABG O2 Saturation ABG Base Excess ABG Hemoglobin Oxyhemoglobin Sodium Potassium 3.2 L Chloride 97.5 L Carbon Dioxide 31 H BUN Creatinine 0.5 L Glucose POC Glucose 120 H Lactic Acid Calcium Magnesium Iron TIBC Ferritin AST ALT Lactate Dehydrogenase Troponin T C-Reactive Protein Total Protein Albumin Prealbumin Cholesterol LDL Cholesterol Direct HDL Cholesterol Urine WBC (Auto) Vancomycin Trough Coronavirus (PCR) Crossmatch 07/29/19 07/29/19 07/29/19 11:57 17:43 Unknown WBC RBC Hgb Hct MCV MCH MCHC RDW Plt Count Lymph % (Auto) [place] % (Auto) Lymph # [place] # Baso # Seg Neutrophils % Seg Neuts % (Manual) Lymphocytes % (Manual) Monocytes % (Manual) Nucleated RBC % Seg Neutrophils # Seg Neutrophils # Man Lymphocytes # (Manual) Monocytes # (Manual) Basophils # (Manual) PT INR D-Dimer ABG pH ABG pO2 ABG HCO3 ABG O2 Saturation ABG Base Excess ABG Hemoglobin Oxyhemoglobin Sodium Potassium Chloride Carbon Dioxide BUN Creatinine Glucose POC Glucose 112 H Lactic Acid Calcium Magnesium Iron TIBC Ferritin AST ALT Lactate Dehydrogenase Troponin T C-Reactive Protein Total Protein Albumin Prealbumin Cholesterol LDL Cholesterol Direct HDL Cholesterol Urine WBC (Auto) 63.0 H Vancomycin Trough Coronavirus (PCR) Positive A Crossmatch 07/30/19 07/30/19 07/30/19 00:20 04:35 04:35 WBC 24.3 H RBC 3.12 L Hgb 8.5 L Hct 26.3 L MCV MCH 27 L MCHC RDW 20.2 H Plt Count 550 H Lymph % (Auto) [place] % (Auto) Lymph # [place] # Baso # Seg Neutrophils % Seg Neuts % (Manual) Lymphocytes % (Manual) Monocytes % (Manual) Nucleated RBC % Seg Neutrophils # Seg Neutrophils # Man Lymphocytes # (Manual) Monocytes # (Manual) Basophils # (Manual) PT INR D-Dimer ABG pH ABG pO2 ABG HCO3 ABG O2 Saturation ABG Base Excess ABG Hemoglobin Oxyhemoglobin Sodium Potassium 3.0 L Chloride 96.3 L Carbon Dioxide 32 H BUN Creatinine 0.5 L Glucose POC Glucose 106 H Lactic Acid Calcium Magnesium Iron TIBC Ferritin AST ALT Lactate Dehydrogenase Troponin T C-Reactive Protein Total Protein Albumin Prealbumin Cholesterol LDL Cholesterol Direct HDL Cholesterol Urine WBC (Auto) Vancomycin Trough Coronavirus (PCR) Crossmatch 07/31/19 07/31/19 07/31/19 04:42 04:42 11:33 WBC 23.8 H RBC 3.10 L Hgb 8.4 L Hct 26.1 L MCV MCH 27 L MCHC RDW 19.6 H Plt Count 561 H Lymph % (Auto) [place] % (Auto) Lymph # [place] # Baso # Seg Neutrophils % Seg Neuts % (Manual) Lymphocytes % (Manual) Monocytes % (Manual) Nucleated RBC % Seg Neutrophils # Seg Neutrophils # Man Lymphocytes # (Manual) Monocytes # (Manual) Basophils # (Manual) PT INR D-Dimer ABG pH ABG pO2 ABG HCO3 ABG O2 Saturation ABG Base Excess ABG Hemoglobin Oxyhemoglobin Sodium 135 L Potassium Chloride 93.9 L Carbon Dioxide 32 H BUN Creatinine 0.4 L Glucose POC Glucose 116 H Lactic Acid Calcium Magnesium Iron TIBC Ferritin AST ALT Lactate Dehydrogenase Troponin T C-Reactive Protein Total Protein Albumin 1.6 L Prealbumin 0.037 L Cholesterol LDL Cholesterol Direct HDL Cholesterol Urine WBC (Auto) Vancomycin Trough Coronavirus (PCR) Crossmatch 07/31/19 08/01/19 08/01/19 23:33 04:57 04:57 WBC 26.7 H RBC 3.12 L Hgb 8.5 L Hct 26.3 L MCV MCH 27 L MCHC RDW 19.2 H Plt Count 602 H Lymph % (Auto) [place] % (Auto) Lymph # [place] # Baso # Seg Neutrophils % Seg Neuts % (Manual) 93.0 H Lymphocytes % (Manual) 2.0 L Monocytes % (Manual) Nucleated RBC % Seg Neutrophils # Seg Neutrophils # Man 24.8 H Lymphocytes # (Manual) 0.5 L Monocytes # (Manual) 1.1 H Basophils # (Manual) PT INR D-Dimer ABG pH ABG pO2 ABG HCO3 ABG O2 Saturation ABG Base Excess ABG Hemoglobin Oxyhemoglobin Sodium 132 L Potassium Chloride 93.8 L Carbon Dioxide 31 H BUN Creatinine 0.3 L Glucose POC Glucose 148 H Lactic Acid Calcium 8.1 L Magnesium Iron TIBC Ferritin AST ALT Lactate Dehydrogenase Troponin T C-Reactive Protein Total Protein Albumin Prealbumin Cholesterol LDL Cholesterol Direct HDL Cholesterol Urine WBC (Auto) Vancomycin Trough Coronavirus (PCR) Crossmatch 08/01/19 08/02/19 08/02/19 12:16 00:22 05:24 WBC RBC Hgb Hct MCV MCH MCHC RDW Plt Count Lymph % (Auto) [place] % (Auto) Lymph # [place] # Baso # Seg Neutrophils % Seg Neuts % (Manual) Lymphocytes % (Manual) Monocytes % (Manual) Nucleated RBC % Seg Neutrophils # Seg Neutrophils # Man Lymphocytes # (Manual) Monocytes # (Manual) Basophils # (Manual) PT INR D-Dimer ABG pH ABG pO2 ABG HCO3 ABG O2 Saturation ABG Base Excess ABG Hemoglobin Oxyhemoglobin Sodium Potassium Chloride Carbon Dioxide BUN Creatinine Glucose POC Glucose 120 H 119 H 113 H Lactic Acid Calcium Magnesium Iron TIBC Ferritin AST ALT Lactate Dehydrogenase Troponin T C-Reactive Protein Total Protein Albumin Prealbumin Cholesterol LDL Cholesterol Direct HDL Cholesterol Urine WBC (Auto) Vancomycin Trough Coronavirus (PCR) Crossmatch 08/03/19 08/03/19 08/03/19 05:20 12:01 23:48 WBC RBC Hgb Hct MCV MCH MCHC RDW Plt Count Lymph % (Auto) [place] % (Auto) Lymph # [place] # Baso # Seg Neutrophils % Seg Neuts % (Manual) Lymphocytes % (Manual) Monocytes % (Manual) Nucleated RBC % Seg Neutrophils # Seg Neutrophils # Man Lymphocytes # (Manual) Monocytes # (Manual) Basophils # (Manual) PT INR D-Dimer ABG pH ABG pO2 ABG HCO3 ABG O2 Saturation ABG Base Excess ABG Hemoglobin Oxyhemoglobin Sodium Potassium Chloride Carbon Dioxide BUN Creatinine Glucose POC Glucose 118 H 106 H 120 H Lactic Acid Calcium Magnesium Iron TIBC Ferritin AST ALT Lactate Dehydrogenase Troponin T C-Reactive Protein Total Protein Albumin Prealbumin Cholesterol LDL Cholesterol Direct HDL Cholesterol Urine WBC (Auto) Vancomycin Trough Coronavirus (PCR) Crossmatch 08/04/19 08/04/19 08/04/19 05:38 05:38 06:29 WBC 26.1 H RBC 2.77 L Hgb 7.5 L Hct 23.2 L MCV MCH 27 L MCHC RDW 19.2 H Plt Count 648 H Lymph % (Auto) [place] % (Auto) Lymph # [place] # Baso # Seg Neutrophils % Seg Neuts % (Manual) 90.5 H Lymphocytes % (Manual) 3.5 L Monocytes % (Manual) Nucleated RBC % Seg Neutrophils # Seg Neutrophils # Man 23.6 H Lymphocytes # (Manual) 0.9 L Monocytes # (Manual) 1.2 H Basophils # (Manual) PT INR D-Dimer ABG pH ABG pO2 ABG HCO3 ABG O2 Saturation ABG Base Excess ABG Hemoglobin Oxyhemoglobin Sodium 132 L Potassium 3.4 L D Chloride 92.7 L Carbon Dioxide 33 H BUN Creatinine 0.2 L Glucose POC Glucose 108 H Lactic Acid Calcium 8.1 L Magnesium Iron TIBC Ferritin AST ALT Lactate Dehydrogenase Troponin T C-Reactive Protein Total Protein Albumin Prealbumin Cholesterol LDL Cholesterol Direct HDL Cholesterol Urine WBC (Auto) Vancomycin Trough Coronavirus (PCR) Crossmatch 08/04/19 08/05/19 08/05/19 12:30 04:58 04:58 WBC 21.0 H RBC 2.63 L Hgb 7.2 L Hct 21.9 L MCV 83 L MCH 27 L MCHC RDW 18.9 H Plt Count 691 H Lymph % (Auto) [place] % (Auto) Lymph # [place] # Baso # Seg Neutrophils % Seg Neuts % (Manual) 86.0 H Lymphocytes % (Manual) 3.0 L Monocytes % (Manual) 10.0 H Nucleated RBC % Seg Neutrophils # Seg Neutrophils # Man 18.1 H Lymphocytes # (Manual) 0.6 L Monocytes # (Manual) 2.1 H Basophils # (Manual) PT INR D-Dimer ABG pH ABG pO2 ABG HCO3 ABG O2 Saturation ABG Base Excess ABG Hemoglobin Oxyhemoglobin Sodium 134 L Potassium 3.2 L Chloride 93.2 L Carbon Dioxide 34 H BUN 8 L Creatinine 0.3 L Glucose POC Glucose 138 H Lactic Acid Calcium 8.1 L Magnesium Iron TIBC Ferritin AST ALT Lactate Dehydrogenase Troponin T C-Reactive Protein Total Protein Albumin Prealbumin Cholesterol LDL Cholesterol Direct HDL Cholesterol Urine WBC (Auto) Vancomycin Trough Coronavirus (PCR) Crossmatch 08/05/19 08/05/19 08/05/19 11:53 17:57 23:58 WBC RBC Hgb Hct MCV MCH MCHC RDW Plt Count Lymph % (Auto) [place] % (Auto) Lymph # [place] # Baso # Seg Neutrophils % Seg Neuts % (Manual) Lymphocytes % (Manual) Monocytes % (Manual) Nucleated RBC % Seg Neutrophils # Seg Neutrophils # Man Lymphocytes # (Manual) Monocytes # (Manual) Basophils # (Manual) PT INR D-Dimer ABG pH ABG pO2 ABG HCO3 ABG O2 Saturation ABG Base Excess ABG Hemoglobin Oxyhemoglobin Sodium Potassium Chloride Carbon Dioxide BUN Creatinine Glucose POC Glucose 106 H 111 H 116 H Lactic Acid Calcium Magnesium Iron TIBC Ferritin AST ALT Lactate Dehydrogenase Troponin T C-Reactive Protein Total Protein Albumin Prealbumin Cholesterol LDL Cholesterol Direct HDL Cholesterol Urine WBC (Auto) Vancomycin Trough Coronavirus (PCR) Crossmatch 08/06/19 08/06/19 08/06/19 04:11 04:11 06:04 WBC 20.8 H RBC 2.80 L Hgb 7.6 L Hct 23.5 L MCV MCH 27 L MCHC RDW 19.0 H Plt Count 723 H Lymph % (Auto) [place] % (Auto) Lymph # [place] # Baso # Seg Neutrophils % Seg Neuts % (Manual) 88.0 H Lymphocytes % (Manual) 3.0 L Monocytes % (Manual) Nucleated RBC % Seg Neutrophils # Seg Neutrophils # Man 18.3 H Lymphocytes # (Manual) 0.6 L Monocytes # (Manual) Basophils # (Manual) 0.2 H PT INR D-Dimer ABG pH ABG pO2 ABG HCO3 ABG O2 Saturation ABG Base Excess ABG Hemoglobin Oxyhemoglobin Sodium Potassium 3.4 L Chloride 95.2 L Carbon Dioxide 32 H BUN Creatinine 0.3 L Glucose POC Glucose 108 H Lactic Acid Calcium 8.2 L Magnesium Iron TIBC Ferritin AST ALT Lactate Dehydrogenase Troponin T C-Reactive Protein Total Protein Albumin Prealbumin Cholesterol LDL Cholesterol Direct HDL Cholesterol Urine WBC (Auto) Vancomycin Trough Coronavirus (PCR) Crossmatch 08/06/19 08/06/19 08/07/19 12:23 17:13 00:21 WBC RBC Hgb Hct MCV MCH MCHC RDW Plt Count Lymph % (Auto) [place] % (Auto) Lymph # [place] # Baso # Seg Neutrophils % Seg Neuts % (Manual) Lymphocytes % (Manual) Monocytes % (Manual) Nucleated RBC % Seg Neutrophils # Seg Neutrophils # Man Lymphocytes # (Manual) Monocytes # (Manual) Basophils # (Manual) PT INR D-Dimer ABG pH ABG pO2 ABG HCO3 ABG O2 Saturation ABG Base Excess ABG Hemoglobin Oxyhemoglobin Sodium Potassium Chloride Carbon Dioxide BUN Creatinine Glucose POC Glucose 112 H 132 H 147 H Lactic Acid Calcium Magnesium Iron TIBC Ferritin AST ALT Lactate Dehydrogenase Troponin T C-Reactive Protein Total Protein Albumin Prealbumin Cholesterol LDL Cholesterol Direct HDL Cholesterol Urine WBC (Auto) Vancomycin Trough Coronavirus (PCR) Crossmatch 08/07/19 08/07/19 08/07/19 05:16 05:23 05:23 WBC 30.3 H RBC 2.69 L Hgb 7.1 L Hct 22.2 L MCV 83 L MCH 27 L MCHC RDW 19.1 H Plt Count 650 H Lymph % (Auto) [place] % (Auto) Lymph # [place] # Baso # Seg Neutrophils % Seg Neuts % (Manual) 88.0 H Lymphocytes % (Manual) 5.0 L Monocytes % (Manual) Nucleated RBC % Seg Neutrophils # Seg Neutrophils # Man 26.7 H Lymphocytes # (Manual) Monocytes # (Manual) 2.1 H Basophils # (Manual) PT INR D-Dimer ABG pH ABG pO2 ABG HCO3 ABG O2 Saturation ABG Base Excess ABG Hemoglobin Oxyhemoglobin Sodium 135 L Potassium 3.4 L Chloride 95.4 L Carbon Dioxide 32 H BUN Creatinine 0.4 L Glucose 120 H POC Glucose 120 H Lactic Acid Calcium 7.7 L Magnesium Iron TIBC Ferritin AST ALT Lactate Dehydrogenase Troponin T C-Reactive Protein Total Protein Albumin Prealbumin Cholesterol LDL Cholesterol Direct HDL Cholesterol Urine WBC (Auto) Vancomycin Trough Coronavirus (PCR) Crossmatch 08/07/19 08/07/19 08/07/19 10:24 10:24 11:10 WBC RBC Hgb Hct MCV MCH MCHC RDW Plt Count Lymph % (Auto) [place] % (Auto) Lymph # [place] # Baso # Seg Neutrophils % Seg Neuts % (Manual) Lymphocytes % (Manual) Monocytes % (Manual) Nucleated RBC % Seg Neutrophils # Seg Neutrophils # Man Lymphocytes # (Manual) Monocytes # (Manual) Basophils # (Manual) PT INR D-Dimer 1808.06 H ABG pH ABG pO2 73.3 L ABG HCO3 33.9 H ABG O2 Saturation ABG Base Excess 9.0 H ABG Hemoglobin 6.3 L Oxyhemoglobin 94.3 L Sodium Potassium Chloride Carbon Dioxide BUN Creatinine Glucose POC Glucose Lactic Acid Calcium Magnesium Iron TIBC Ferritin AST ALT Lactate Dehydrogenase Troponin T C-Reactive Protein 11.10 H Total Protein Albumin Prealbumin Cholesterol LDL Cholesterol Direct HDL Cholesterol Urine WBC (Auto) Vancomycin Trough Coronavirus (PCR) Crossmatch Allied health notes reviewed: RT
[2019-08-07] MEDS ORDERED: POTASSIUM CHLORIDE 20 MEQ PACKET FEEDTUBE ONE (12:00)
--- NOTE | 2019-08-07 15:54 | Progress Note ---
Assessment and Plan 69 yo M with 1. VDRF 2. COVID+ PNA 3. Worsening leukocytosis 4. Sacral decubitus ulcer, left ischial ulcer, along with multiple other pr essure ulcers 5. Bedbound 6. Protein calorie malnutrition Plan: 1. continue vent management per ICU team 2. Continue antibiotics per ID 3. Continue packing sacral and ischial wound with Dakin's packing. 4. Offloading 5. Optimize nutrition 6. CT scan chest, abdomen, pelvis ordered per ID to determine other sources of leukocytosis 7. Likely that the patient has a chronically infected sacral wound with underlying osteomyelitis based on the physical exam. There is some necrotic tissue overlying portions of the wound, however this is been present since admission based on the men's golf coach photos. Uncertain whether these wounds are the source of worsening leukocytosis and recurrent fevers. 8. I will discussed with the patient's regarding bedside debridement of these wounds. However I do not feel that this will help the patient's overall condition or prognosis. These wounds will not heal due to the patient's multiple active and chronic medical issues and will likely continue to deteriorate. 9. Tracheostomy planning pending repeat COVID testing. Discussed with Dr. Sagastume Thank you, please call with questions. Subjective Date of service: 08/07/19 Narrative: Pt seen and examined. Reconsult for sacral decubitus ulcer with possible infection. The patient has been spiking fevers and his white blood cell count is trending upwards. The patient remains on mechanical ventilation and unresponsive. Objective Vital Signs - 12hr 08/07/19 08/07/19 08/07/19 03:58 04:00 05:00 Temperature Pulse Rate 105 H 104 H 105 H Pulse Rate [ 90 From Monitor] Respiratory 18 13 Rate Respiratory Rate [Back] Respiratory Rate [denies] Blood Pressure 120/70 138/79 138/71 O2 Sat by Pulse 99 99 98 Oximetry 08/07/19 08/07/19 08/07/19 06:00 07:00 08:00 Temperature 98.5 F Pulse Rate 96 H 91 H 94 H Pulse Rate [ 94 H From Monitor] Respiratory 17 16 18 Rate Respiratory Rate [Back] Respiratory Rate [denies] Blood Pressure 130/73 132/76 138/77 O2 Sat by Pulse 100 99 99 Oximetry 08/07/19 08/07/19 08/07/19 09:00 09:14 09:22 Temperature Pulse Rate 87 89 96 H Pulse Rate [ From Monitor] Respiratory 13 Rate Respiratory Rate [Back] Respiratory Rate [denies] Blood Pressure 131/68 131/68 131/68 O2 Sat by Pulse 100 100 100 Oximetry 08/07/19 08/07/19 08/07/19 10:00 11:00 11:53 Temperature Pulse Rate 99 H 101 H Pulse Rate [ 98 H From Monitor] Respiratory 23 28 H 24 Rate Respiratory 23 Rate [Back] Respiratory 23 Rate [denies] Blood Pressure 133/75 132/73 O2 Sat by Pulse 99 98 98 Oximetry 08/07/19 12:00 Temperature 98.7 F Pulse Rate 99 H Pulse Rate [ From Monitor] Respiratory 18 Rate Respiratory Rate [Back] Respiratory Rate [denies] Blood Pressure 146/85 O2 Sat by Pulse 100 Oximetry - General physical appearance Narrative Exam: Gen.: Intubated, unresponsive ENT: Trachea midline. No lymphadenopathy. No scleral icterus or conjunctival pallor. ET tube and OG tube in place CV: S1, S2 present Respiratory: No audible wheezes Abdomen: Soft, nondistended, nontender. Dressing over old PEG site clean, dry, intact. No rebound, rigidity, guarding Extremities: Positive edema Sacrum: The patient has a left ischial and a sacral wound. There is necrotic eschar overlying the left ischial wound with no surrounding cellulitis. There is no drainage from the left ischial wound, no fluctuance, no induration. 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 There is some greenish film overlying the inferior aspect of the wound as well as some necrotic tissue. The wound was cleansed with a 4 x 4 gauze and all slough and discharge easily removed. There is no drainage. There is a mild odor. The wound was packed with Dakin's moistened Kerlix x1, covered with a sacral foam dressing. - Labs 08/07/19 05:23 08/07/19 05:23 Diabetes panel 08/07/19 Range/Units 05:23 Sodium 135 L (137-145) mmol/L Potassium 3.4 L (3.6-5.0) mmol/L Chloride 95.4 L (98-107) mmol/L Carbon Dioxide 32 H (22-30) mmol/L BUN 11 (9-20) mg/dL Creatinine 0.4 L (0.8-1.5) mg/dL Glucose 120 H (75-100) mg/dL Calcium 7.7 L (8.4-10.2) mg/dL Calcium panel 08/07/19 Range/Units 05:23 Calcium 7.7 L (8.4-10.2) mg/dL Pituitary panel 08/07/19 Range/Units 05:23 Sodium 135 L (137-145) mmol/L Potassium 3.4 L (3.6-5.0) mmol/L Chloride 95.4 L (98-107) mmol/L Carbon Dioxide 32 H (22-30) mmol/L BUN 11 (9-20) mg/dL Creatinine 0.4 L (0.8-1.5) mg/dL Glucose 120 H (75-100) mg/dL Calcium 7.7 L (8.4-10.2) mg/dL Adrenal panel 08/07/19 Range/Units 05:23 Sodium 135 L (137-145) mmol/L Potassium 3.4 L (3.6-5.0) mmol/L Chloride 95.4 L (98-107) mmol/L Carbon Dioxide 32 H (22-30) mmol/L BUN 11 (9-20) mg/dL Creatinine 0.4 L (0.8-1.5) mg/dL Glucose 120 H (75-100) mg/dL Calcium 7.7 L (8.4-10.2) mg/dL
[2019-08-08] MEDS: PIPERACIL/TAZOBACTA 4.5/NS 100 4.5 GM/100 ML VIAL IV SCH ×4 (00:34→17:03)
[2019-08-08] MEDS: INSULIN LISPRO 100 UNIT/ML SUB-Q SCH ×4 (00:34→18:41)
[2019-08-08 05:17] LABS: Hematocrit 23.6 % (35.5-45.6); Hemoglobin 7.7 gm/dl (11.8-15.2); Mean Corpuscular HGB Conc 33 % (32-34); Mean Corpuscular Volume 84 fl (84-94); Platelet Count 722 K/mm3 (140-440); Red Blood Count 2.82 M/mm3 (3.65-5.03); Red Cell Distribution Width 19.1 % (13.2-15.2)
[2019-08-08 05:35] LABS: BUN/Creatinine Ratio 40; Blood Urea Nitrogen 12 mg/dL (9-20); Calcium 7.8 mg/dL (8.4-10.2); Hemolysis Index 21
[2019-08-08 06:23] LABS: Basophils % (Manual) 0 % (0.0-1.8); Hypochromasia Few; Ovalocytes Rare; Schistocytes Rare; Total Cells Counted 100
[2019-08-08 06:24] LABS: Anisocytosis RARE; Platelet Estimate Consistent w Auto
--- NOTE | 2019-08-08 08:41 | Progress Note ---
Assessment and Plan Assessment and plan: --COVid positive pneumonia with severe sepsis Received Plaquenil and cefepime, monitor off antibiotics ID following --Septic shock: On Levophed Persistent hypotension, titrate to systolic blood pressure more than 100 -- Acute respiratory Failure with Hypoxia Due to bilateral PNA with COVID 19 infection. On ventilatory support, unable to wean Pulmonary critical following --COPD with exacerbation Likely due to COVID-19 pneumonia Continue scheduled nebs --Anemia, Microcytic persistent s/p total 3 unit of PRBC, today Hb today 9.1 --Pressure Ulcers: POA buttocks, right lateral foot area wound and supportive care --Hyponatremia, resolved --DM type 2: Accu-Chek SCC tube feeding, insulin as needed --h/o HTN Essential, now hypotensive On Levophed --Seizure D/o/CVA/immobility/BIpolar D/o/SCZ Seizure precautions, antiepileptic medications --Severe PCM, TF supportive care, dietary following patient is DNR- Called and verified information Very poor prognosis, Recommend hospice 07/04: COVID +ve, start on plaquinil, called no answer 07/05: transfuse one unit PRBC, Hb dropped to ~6, called and updated 07/06; H&H stable, serum chemistry improved. On mechanical ventilation with high inflammatory markers. Continue Plaquenil and empiric antibiotics. ID following, prognosis remains guarded and extremely poor. 07/07: On mechanical ventilation with high inflammatory markers. Continue Plaquenil and empiric antibiotics. ID following, prognosis remains guarded and extremely poor. 07/08: Called today and verified the CODE STATUS. Patient remains DNR. He is still intubated, with poor prognosis. Continue to follow inflammatory markers. 07/09 wean off from vent as tolerated, completed empiric antibiotic and Plaquenil 07/10 wean off from vent as tolerated. poor prognosis 07/11 hb 6.7 today, transfuse one PRBC. wean off from vent as tolerated. poor prognosis 07/12 remains critically on vent. Hb 6.9 07/13 Hb dropped to 6.6, transfuse 1 unit of PRBC, remains on vent critically ill Hypotensive, fluid bolus, if no improvement start Levophed 07/14; remains anemic with hemoglobin of 6.8, received total 3 units of PRBC Additional 1 unit of PRBC today, stool for occult blood to rule out GI causes Started back on Levophed due to hypotension 07/15; patient remains critically ill, hypotensive on Levophed 07/16: Today remains intubated on vent, persistent hypotension on Levophed 07/17; clinically no change, pressor dependent[on Levophed] DNR status 07/18: Patient remains hypotensive requiring Levophed, intubated on vent Unable to wean, critically ill. DNR 07/20/2019 Patient remains hypotensive requiring Levophed, intubated on vent. Patient currently with AC mode ventilation, rate 20, tidal volume 500, FiO2 40% and PEEP 6. Patient is a poor prognosis and apparently was on hospice recently. 07/21/2019. Patient with PEG tube that was clogged yesterday. surgery evaluated the patient and noted Very long PEG tubing with thick material inside. The ent celsa tube was stripped and a large amount of formed tube feed was expressed. The tube was then flushed with sprite and flushed easily. Tube clamped. Patient currently with AC mode ventilation, rate 20, tidal volume 500, FiO2 40% and PEEP 6. Patient is a poor prognosis and apparently was on hospice recently. 07/22/2019. Patient currently with AC mode ventilation, rate 20, tidal volume 500, FiO2 30% and PEEP 6. Patient on sedation with fentanyl drip. Continue Levophed to maintain MAP greater than 65. Patient is a poor prognosis and apparently was on hospice recently. 07/23/2019. Patient currently with AC mode ventilation, rate 20, tidal volume 500, FiO2 30% and PEEP 6. Patient on sedation with fentanyl drip. Continue Levophed to maintain MAP greater than 65. Patient is a poor prognosis and apparently was on hospice recently. 07/24/2019 Patient with Covid-19 infection with pneumonia, acute respiratory failure, intubated on ventilator. No more fever. Continue current management. 07/25/2019 Patient with Covid-19 infection with pneumonia, acute respiratory failure, intubated on ventilator. fever is now resolved. Sedated with propofol 07/26/2019 Patient with covid-19 infection. Still intubated, on vent. 07/27/2019 Patient with Covid-19. he is still critically ill. patient has DNR order. 07/28/2019 Patient with Covid-19 infection. Will repeat labs today. Surgeon consulted for tracheostomy. 07/29/2019 Patient with Covid-19. hypokalemia yesterday, replaced. Will recheck labs in am. 07/30/2019 patient with Covid-19 infection with acute respiratory failure. He is intubated on ventilator. has hypokalemia. replace and recheck BMP in am. patient has UTI, started on Cefepime. 07/31/2019. patient with Covid-19 infection with acute respiratory failure. He is intubated on ventilator. Repeat chest x-ray reveals decreased infiltrates. urology consultation and wound care consult per ID. Follow-up urine and blood culture. Tracheostomy per surgery. 08/01/2019. patient with Covid-19 infection with acute respiratory failure. He is intubated on ventilator. Patient currently with PSV trials. Pressure support 18/PEEP 6. FiO2 30%. Tracheostomy to be placed per surgery wound COVID testing negative. 08/02/2019. Patient with COVID-19 infection and acute respiratory failure on mechanical ventilation. Continue with PSVT trials with pressure support increased to 20. Follow-up serial chest x-ray. Continue Fentanyl infusion and wean sedation as tolerated. Continue daily spontaneous breathing trials. 08/03/2019. Patient with COVID-19 infection and acute respiratory failure on mechanical ventilation. Continue with PSV trials with pressure support increased to 20. Follow-up serial chest x-ray. Continue Fentanyl infusion and wean sedation as tolerated. Continue daily spontaneous breathing trials. 08/04/2019. Patient with COVID-19 infection and acute respiratory failure on mechanical ventilation. Continue with PSV trials 14/6, FiO2 30%. Continue Fentanyl infusion and wean sedation as tolerated. Continue daily spontaneous breathing trials. Tracheostomy placement to be scheduled when COVID testing is negative per surgery. Monitor off antibiotics per ID recommendations 08/05/2019. Patient with COVID-19 infection and acute respiratory failure on mechanical ventilation. Patient currently on AC mode, rate 14, tidal volume 500, FiO2 30% and PEEP of 6. Continue PSV trials as tolerated. Tracheostomy placement to be scheduled when COVID testing is negative per surgery. Monitor off antibiotics per ID recommendations. 08/06/2019. Patient with COVID-19 infection and acute respiratory failure on mechanical ventilation. Patient currently on AC mode, rate 14, tidal volume 500, FiO2 30% and PEEP of 6. Continue PSV trials as tolerated. Tracheostomy placement to be scheduled when COVID testing is negative per surgery. ID restarted antibiotics with cefepime 2 g IV every 8 hours to cover for presumed Pseudomonas pneumonia. Follow-up chest x-ray and blood cultures. Repeat COVID testing 07/28 and positive. Repeat test tomorrow. 08/07/19 Patient with Covid-19, acute respiratory failure. He is still intubated on mechanical ventilator. For tracheostomy when Covid-19 test negative. Still having fever. Leukocytosis worse today, WBC 30.3. For CT Chest, Abdomen. 08/08/19 patient with Covid-19, acute respiratory failure. He is still critically ill, intubated. He is for tracheostomy after Covid-19 test negative. Fever improving. Temp 99.[address] Chest and Abdomen done yesterday pending. The high probability of a clinically significant, sudden or life threatening deterioration of the [respiratory, CVS, RENEWALS SPECIALIST] system(s) required my full and direct attention, in tervention and personal management. The aggregate critical care time was [36] minutes. This time is in addition to time spent performing reported procedures but includes the following: [x] Data Review and interpretation [x] Patient assessment and monitoring of vital signs [x] Documentation [x] Medication orders and management History Interval history: Patient with Covid-19 infection Still intubated Hospitalist Physical - Physical exam Narrative exam: GEN: Not in acute distress, intubated HEENT: Normocephalic, atraumatic, Neck: supple, No JVD Lungs: Bilateral crackles, heart;S1 and S2 reg, no murmurs, rubs or gallop Abd:soft, non tender, non distended, normal bowel sounds,PEG tube Ext: No edema, no clubbing, no cyanosis, Neuro: Intubated, on ventilator,sedated - Constitutional Vitals: Temp Pulse Resp BP Pulse Ox 99.6 F 110 H 14 120/71 99 08/08/19 04:00 08/08/19 07:55 08/08/19 07:55 08/08/19 07:55 08/08/19 07:55 General appearance: Present: other (Orally intubated on vent) HEART Score - HEART Score Troponin: Troponin T 0.013 ng/mL (0.00-0.029) 07/04/19 07:05 Results - Labs CBC & Chem 7: 08/08/19 04:41 08/08/19 04:41 Labs: Laboratory Last Values WBC 22.1 K/mm3 (4.5-11.0) H 08/08/19 04:41 RBC 2.82 M/mm3 (3.65-5.03) L 08/08/19 04:41 Hgb 7.7 gm/dl (11.8-15.2) L 08/08/19 04:41 Hct 23.6 % (35.5-45.6) L 08/08/19 04:41 MCV 84 fl (84-94) 08/08/19 04:41 MCH 27 pg (28-32) L 08/08/19 04:41 MCHC 33 % (32-34) 08/08/19 04:41 RDW 19.1 % (13.2-15.2) H 08/08/19 04:41 Plt Count 722 K/mm3 (140-440) H 08/08/19 04:41 Lymph % (Auto) 4.9 % (13.4-35.0) L 07/19/19 08:45 [place] % (Auto) 12.2 % (0.0-7.3) H 07/22/19 05:38 Eos % (Auto) 1.0 % (0.0-4.3) 07/19/19 08:45 Baso % (Auto) 0.5 % (0.0-1.8) 07/19/19 08:45 Lymph # 0.8 K/mm3 (1.2-5.4) L 07/19/19 08:45 [place] # 1.5 K/mm3 (0.0-0.8) H 07/22/19 05:38 Eos # 0.2 K/mm3 (0.0-0.4) 07/19/19 08:45 Baso # 0.1 K/mm3 (0.0-0.1) 07/19/19 08:45 Add Manual Diff Complete 08/08/19 04:41 Total Counted 100 08/08/19 04:41 Seg Neutrophils % 72.8 % (40.0-70.0) H 07/22/19 05:38 Seg Neuts % (Manual) 90.0 % (40.0-70.0) H 08/08/19 04:41 Band Neutrophils % 0 % 08/08/19 04:41 Lymphocytes % (Manual) 3.0 % (13.4-35.0) L 08/08/19 04:41 Reactive Lymphs % (Man) 0 % 08/08/19 04:41 Monocytes % (Manual) 6.0 % (0.0-7.3) 08/08/19 04:41 Eosinophils % (Manual) 1.0 % (0.0-4.3) 08/08/19 04:41 Basophils % (Manual) 0 % (0.0-1.8) 08/08/19 04:41 Metamyelocytes % 0 % 08/08/19 04:41 Myelocytes % 0 % 08/08/19 04:41 Promyelocytes % 0 % 08/08/19 04:41 Blast Cells % 0 % 08/08/19 04:41 Nucleated RBC % Not Reportable 08/08/19 04:41 Seg Neutrophils # 9.2 K/mm3 (1.8-7.7) H 07/22/19 05:38 Seg Neutrophils # Man 19.9 K/mm3 (1.8-7.7) H 08/08/19 04:41 Band Neutrophils # 0.0 K/mm3 08/08/19 04:41 Lymphocytes # (Manual) 0.7 K/mm3 (1.2-5.4) L 08/08/19 04:41 Abs React Lymphs (Man) 0.0 K/mm3 08/08/19 04:41 Monocytes # (Manual) 1.3 K/mm3 (0.0-0.8) H 08/08/19 04:41 Eosinophils # (Manual) 0.2 K/mm3 (0.0-0.4) 08/08/19 04:41 Basophils # (Manual) 0.0 K/mm3 (0.0-0.1) 08/08/19 04:41 Metamyelocytes # 0.0 K/mm3 08/08/19 04:41 Myelocytes # 0.0 K/mm3 08/08/19 04:41 Promyelocytes # 0.0 K/mm3 08/08/19 04:41 Blast Cells # 0.0 K/mm3 08/08/19 04:41 WBC Morphology Not Reportable 08/08/19 04:41 Hypersegmented Neuts Not Reportable 08/08/19 04:41 Hyposegmented Neuts Not Reportable 08/08/19 04:41 Hypogranular Neuts Not Reportable 08/08/19 04:41 Smudge Cells Not Reportable 08/08/19 04:41 Toxic Granulation Not Reportable 08/08/19 04:41 Toxic Vacuolation Not Reportable 08/08/19 04:41 Dohle Bodies Not Reportable 08/08/19 04:41 Pelger-Huet Anomaly Not Reportable 08/08/19 04:41 [place]y Rods Not Reportable 08/08/19 04:41 Platelet Estimate Consistent w auto 08/08/19 04:41 Clumped Platelets Not Reportable 08/08/19 04:41 Plt Clumps, EDTA Not Reportable 08/08/19 04:41 Large Platelets Not Reportable 08/08/19 04:41 Giant Platelets Not Reportable 08/08/19 04:41 Platelet Satelliting Not Reportable 08/08/19 04:41 Plt Morphology Comment Not Reportable 08/08/19 04:41 RBC Morphology Not Reportable 08/08/19 04:41 Dimorphic RBCs Not Reportable 08/08/19 04:41 Polychromasia Not Reportable 08/08/19 04:41 Hypochromasia Few 08/08/19 04:41 Poikilocytosis Not Reportable 08/08/19 04:41 Anisocytosis Rare 08/08/19 04:41 Microcytosis Rare 08/08/19 04:41 Macrocytosis Not Reportable 08/08/19 04:41 Spherocytes Not Reportable 08/08/19 04:41 Pappenheimer Bodies Not Reportable 08/08/19 04:41 Sickle Cells Not Reportable 08/08/19 04:41 Target Cells Not Reportable 08/08/19 04:41 Tear Drop Cells Not Reportable 08/08/19 04:41 Ovalocytes Rare 08/08/19 04:41 Stomatocytes Few 08/01/19 04:57 Helmet Cells Not Reportable 08/08/19 04:41 [place] Bodies Not Reportable 08/08/19 04:41 [place] Rings Not Reportable 08/08/19 04:41 [place] Cells Not Reportable 08/08/19 04:41 Bite Cells Not Reportable 08/08/19 04:41 Crenated Cell Not Reportable 08/08/19 04:41 Elliptocytes Not Reportable 08/08/19 04:41 Acanthocytes (Spur) Not Reportable 08/08/19 04:41 Rouleaux Not Reportable 08/08/19 04:41 Hemoglobin C Crystals Not Reportable 08/08/19 04:41 Schistocytes Rare 08/08/19 04:41 Malaria parasites Not Reportable 08/08/19 04:41 Jeevan Bodies Not Reportable 08/08/19 04:41 Hem Pathologist Commnt No 08/08/19 04:41 PT 16.0 Sec. (12.2-14.9) H 07/03/19 22:20 INR 1.26 (0.87-1.13) H 07/03/19 22: D-Dimer 1808.06 ng/mlDDU (0-234) H 08/07/19 10:24 ABG pH 7.445 pH Units (7.350-7.450) 08/07/19 11:10 ABG pCO2 50.5 mm Hg 08/07/19 11:10 ABG pO2 73.3 mm Hg (80.0-90.0) L 08/07/19 11:10 ABG HCO3 33.9 mmol/L (20.0-26.0) H 08/07/19 11:10 ABG O2 Saturation 96.5 % (95.0-99.0) 08/07/19 11:10 ABG O2 Content 8.5 (0.0-44) 08/07/19 11:10 ABG Base Excess 9.0 mmol/L (-2.0-3.0) H 08/07/19 11:10 ABG Hemoglobin 6.3 gm/dl (14.0-18.0) L 08/07/19 11:10 ABG Carboxyhemoglobin 1.9 % (0.0-5.0) 08/07/19 11:10 ABG Methemoglobin 0.4 % (0.0-1.5) 08/07/19 11:10 Oxyhemoglobin 94.3 % (95.0-99.0) L 08/07/19 11:10 FiO2 30 % 08/07/19 11:10 Sodium 136 mmol/L (137-145) L 08/08/19 04:41 Potassium 4.3 mmol/L (3.6-5.0) D 08/08/19 04:41 Chloride 97.8 mmol/L (98-107) L 08/08/19 04:41 Carbon Dioxide 28 mmol/L (22-30) 08/08/19 04:41 Anion Gap 15 mmol/L 08/08/19 04:41 BUN 12 mg/dL (9-20) 08/08/19 04:41 Creatinine 0.3 mg/dL (0.8-1.5) L 08/08/19 04:41 Estimated GFR > 60 ml/min 08/08/19 04:41 BUN/Creatinine Ratio 40 % 08/08/19 04:41 Glucose 105 mg/dL (75-100) H 08/08/19 04:41 POC Glucose 102 (70-105) 08/08/19 05:32 Osmolality 268 Mosm/kg 07/05/19 04:00 Lactic Acid 3.30 mmol/L (0.7-2.0) H* 07/04/19 07:05 Uric Acid 7.2 mg/dL (3.5-7.6) 07/05/19 04:00 Calcium 7.8 mg/dL (8.4-10.2) L 08/08/19 04:41 Phosphorus 3.60 mg/dL (2.5-4.5) 07/05/19 04:00 Magnesium 1.80 mg/dL (1.7-2.3) 07/11/19 05:14 Iron 9 ug/dL (49-181) L 07/04/19 07:05 TIBC 97 mcg/dL (250-450) L 07/04/19 07:05 Ferritin 360.4 ng/mL (13.0-400.0) 08/07/19 10:24 Total Bilirubin 0.20 mg/dL (0.1-1.2) 07/04/19 07:05 AST 73 units/L (5-40) H 07/04/19 07:05 ALT 91 units/L (7-56) H 07/04/19 07:05 Alkaline Phosphatase 114 units/L (35-129) 07/04/19 07:05 Ammonia 35.0 umol/L (25-60) 07/03/19 23:58 Lactate Dehydrogenase 144 units/L (91-180) 08/07/19 10:24 Troponin T 0.013 ng/mL (0.00-0.029) 07/04/19 07:05 C-Reactive Protein 11.10 mg/dL (0.00-1.30) H 08/07/19 10:24 Total Protein 5.5 g/dL (6.3-8.2) L 07/04/19 07:05 Albumin 1.6 g/dL (3.9-5) L 07/31/19 04:42 Albumin/Globulin Ratio 0.6 % 07/04/19 07:05 Prealbumin 0.037 g/L (0.200-0.400) L 07/31/19 04:42 Triglycerides 33 mg/dL (2-149) 07/03/19 19:57 Cholesterol 47 mg/dL (50-199) L 07/03/19 19:57 LDL Cholesterol Direct 25 mg/dL (50-130) L 07/03/19 19:57 HDL Cholesterol 20 mg/dL (40-59) L 07/03/19 19:57 Cholesterol/HDL Ratio 2.35 % 07/03/19 19:57 Procalcitonin 0.96 ng/mL (<0.15) 08/07/19 10:24 TSH 2.170 mlU/mL (0.270-4.200) 07/03/19 22:20 Total Cortisol 28.0 mcg/dL () 07/05/19 10:11 Urine Color Yellow (Yellow) 07/29/19 11:57 Urine Turbidity Clear (Clear) 07/29/19 11:57 Urine pH 7.0 (5.0-7.0) 07/29/19 11:57 Ur Specific [place] 1.012 (1.003-1.030) 07/29/19 11:57 Urine Protein <15 mg/dl mg/dL (Negative) 07/29/19 11:57 Urine Glucose (UA) Neg mg/dL (Negative) 07/29/19 11:57 Urine Ketones Neg mg/dL (Negative) 07/29/19 11:57 Urine Blood Sm (Negative) 07/29/19 11:57 Urine Nitrite Neg (Negative) 07/29/19 11:57 Urine Bilirubin Neg (Negative) 07/29/19 11:57 Urine Urobilinogen 4.0 mg/dL (<2.0) 07/29/19 11:57 Ur Leukocyte Esterase Mod (Negative) 07/29/19 11:57 Urine WBC (Auto) 63.0 /HPF (0.0-6.0) H 07/29/19 11:57 Urine RBC (Auto) 14.0 /HPF (0.0-6.0) 07/29/19 11:57 U Epithel Cells (Auto) < 1.0 /HPF (0-13.0) 07/29/19 11:57 Urine Bacteria (Auto) 1+ /HPF (Negative) 07/29/19 11:57 Urine WBC Clumps Few /HPF 07/03/19 21:13 Urine Mucus Few /HPF 07/03/19 21:13 Urine Osmolality 293 Mosm/kg 07/05/19 08:15 Vancomycin Trough 23.2 ug/mL (5.0-20.0) H 07/05/19 17:54 Urine Opiates Screen Presumptive negative 07/03/19 21:13 Urine Methadone Screen Presumptive negative 07/03/19 21:13 Ur Barbiturates Screen Presumptive negative 07/03/19 21:13 Ur Phencyclidine Scrn Presumptive negative 07/03/19 21:13 Ur Amphetamines Screen Presumptive negative 07/03/19 21:13 U Benzodiazepines Scrn Presumptive negative 07/03/19 21:13 Urine Cocaine Screen Presumptive negative 07/03/19 21:13 U Marijuana (THC) Screen Presumptive negative 07/03/19 21:13 Drugs of Abuse Note Disclamer 07/03/19 21:13 Plasma/Serum Alcohol < 0.01 % (0-0.07) 07/03/19 23:58 Coronavirus (PCR) Positive (Negative) A 07/29/19 Unknown Hepatitis A IgM Ab Non-reactive (NonReactive) 08/07/19 10:24 Hep Bs Antigen Non-reactive (Negative) 08/07/19 10:24 Hep B Core IgM Ab Non-reactive (NonReactive) 08/07/19 10:24 Hepatitis C Antibody Non-reactive (NonReactive) 08/07/19 10:24 Blood Type B POSITIVE 07/12/19 08:49 Antibody Screen Negative 07/12/19 08:49 Crossmatch See Detail 04/23/20 08:49 Microbiology: Microbiology 08/06/19 10:18 Peripheral/Venous Blood Culture - Preliminary NO GROWTH AFTER 24 HOURS 08/06/19 11:07 Peripheral/Venous Blood Culture - Preliminary NO GROWTH AFTER 24 HOURS Wright/IV: Voiding Method Indwelling Catheter IV Catheter Type [Left INT / Saline Lock Antecubital] IV Catheter Type [Left Forearm Peripheral IV ] IV Catheter Type [Left Upper Mid-line arm] IV Catheter Type [Right INT / Saline Lock Forearm] IV Catheter Type [Right Hand] INT / Saline Lock IV Catheter Type [Right CVL Femoral] IV Catheter Type [Left INT / Saline Lock External Jugular] Active Medications - Current Medications Current Medications: Generic Name Dose Route Start Last Admin Trade Name Freq PRN Reason Stop Dose Admin Acetaminophen 650 mg 07/04/19 04:24 08/05/19 17:40 Tylenol MI 650 mg Q6H PRN Administration Pain MILD(1-3)/Fever >100.5/MURO Acetaminophen 650 mg 07/10/19 04:00 08/06/19 23:43 Tylenol PO 650 mg Q6HR PRN Administration Pain, Mild (1-3) FEVER Lipase/Protease/Amylase 1 each 07/04/19 10:04 07/20/19 06:15 Pancreaze 10,500 Unit FEEDTUBE 1 each PRN PRN Administration For Clogged Feeding Tube Aspirin 81 mg 07/05/19 10:00 08/07/19 10:19 Baby Aspirin PO 81 mg QDAY TAMMIE Administration Dextrose 50 ml 07/04/19 06:54 D50w (25gm) Syringe IV Q30MIN PRN Hypoglycemia Protocol Docusate Sodium 100 mg 07/10/19 10:00 08/07/19 21:45 Colace PO 100 mg BID TAMMIE Administration Enoxaparin Sodium 40 mg 07/24/19 10:00 08/07/19 10:19 Enoxaparin SUB-Q 40 mg QDAY@1000 TAMMIE Administration Famotidine 20 mg 07/23/19 22:00 08/07/19 21:45 Pepcid PO 20 mg BID TAMMIE Administration Fentanyl 50 mcg 07/21/19 15:18 Sublimaze IV Q10MIN PRN ANALGESIA Fentanyl 25 mcg 08/03/19 11:00 08/06/19 10:27 Duragesic TD 25 mcg Q3D TAMMIE Administration Folic Acid 1 mg 07/05/19 10:00 08/07/19 10:19 Folvite PO 1 mg QDAY TAMMIE Administration Hydrophilic Ointment 1 applic 07/03/19 19:56 07/05/19 17:42 Vaseline Lip Therapy TP 1 applic Q2HR PRN Administration Dry Lips Norepinephrine 4 mg in 250 mls @ 7.5 mls/hr 07/03/19 23:00 07/20/19 01:00 Levophed Drip 4 Mg/Ns 250 Ml IV Infused TITR TAMMIE Titration Protocol 2 MCG/MIN Piperacillin Sod/Tazobactam Sod 4.5 gm in 100 mls @ 200 mls/hr 08/06/19 12:00 08/08/19 05:42 Zosyn/Ns 4.5gm/100ml IV 200 mls/hr Q6HR TAMMIE Administration Protocol Insulin Human Lispro 0 unit 07/07/19 12:00 08/08/19 05:44 Humalog SUB-Q Not Given Q6HR [facility] Protocol Levetiracetam 750 mg 07/06/19 11:00 08/07/19 21:44 Keppra FEEDTUBE 750 mg Q12HR TAMMIE Administration Metoprolol Tartrate 5 mg 07/12/19 15:08 07/29/19 07:30 Metoprolol IV 5 mg Q6HR PRN Administration Tachyarrhythmias Multi-Ingred Cream/Lotion/Oil/Oint 1 applic 07/03/19 19:56 07/05/19 13:19 Artificial Tears Ophth Oint OU 1 applic Q4HR PRN Administration Dry Eye(s) Naloxone HCl 0.1 mg 07/04/19 04:24 Naloxone IV Q2MIN PRN Res Rate </= 8 or 02 SAT < 92% Oxycodone/Acetaminophen 1 tab 07/19/19 14:17 Percocet 5/325 PO Q4H PRN Pain, Moderate (4-6) Scopolamine 1 each 07/10/19 11:00 08/06/19 10:26 Transderm-Scop TD 1 each Q3D TAMMIE Administration Simple Syrup 15 ml 07/04/19 10:04 07/10/19 21:56 Simple Syrup FEEDTUBE 15 ml PRN PRN Administration Hypoglycemia Simple Syrup 30 ml 07/04/19 10:04 Simple Syrup FEEDTUBE PRN PRN Hypoglycemia Sodium Bicarbonate 325 mg 07/04/19 10:04 07/20/19 10:20 Sodium Bicarbonate FEEDTUBE 325 mg PRN PRN Administration For Clogged Feeding Tube Sodium Chloride 10 ml 07/04/19 10:00 08/07/19 21:46 Sodium Chloride Flush Syringe 10 Ml IV 10 ml BID TAMMIE Administration Sodium Chloride 10 ml 07/04/19 04:24 Sodium Chloride Flush Syringe 10 Ml IV PRN PRN LINE FLUSH Sodium Hypochlorite 1 applic 07/10/19 14:00 08/07/19 21:46 Dakin's Half Strength TP 1 applicatio BID TAMMIE Administration Nutrition/Malnutrition Assess - Dietary Evaluation Nutrition/Malnutrition Findings: Nutrition Notes Start: 07/04/19 09:17 Freq: Status: Active Protocol: Document 08/06/19 12:46 LM (Rec: 08/06/19 12:59 LM [id number]) Nutrition Notes Initial or Follow up Reassessment Current Diagnosis Acute Kidney Injury,COPD, Decubitus(Pressure Ulcer), Diabetes,Hypertension Other Pertinent Diagnosis COVID-19 (+), pneu, seizures, schizophrenia, Buttock and R foot PU, Current Diet TF - Nepro at 45ml/hr Labs/Tests K 3.4 Cr 0.3 BUN 9 Na 137 Pertinent Medications Folic acid Height 5 ft 11 in Weight 92 kg [place] Body Weight (kg) 78.18 BMI 28.3 Weight change and time frame wt change noted Subjective/Other Information Pt tolerating Nepro. Will change TF due to labs. Burn Absent Trauma Absent Current % PO Negligible Minimum of two criteria No physical signs of malnutrition #2 Nutrition Diagnosis Increased nutrient needs ( specify in comment below) Diagnosis Progress(for reassessment Continues documentation) #1 Nutrition Diagnosis Inadequate oral intake Diagnosis Progress(for reassessment Continues documentation) Is patient on ventilator? Yes Is Patient Ambulatory and/or Out of Bed No REE-([facility]-confined to bed) 2047.172 Calculation Used for Recommendations [facility] Additional Notes Protein: 110-184 (1.2-2g/kg) Fluid: 1 ml/kcal or per Nutrition Intervention Change Diet Order: Continue TF Nutrition Support: [place] to Osmolite 1.5 at 55ml/hr Flush 150ml q4h Kcal 1,980 Protein (gm) 83 Fluid (mL) 1,006 Goal #1 TF tolerance Goal #2 TF to meet at least 75% of energy and protein needs Anticipated Discharge Needs: unable to determine at this time Follow-Up By: 08/08/19 Additional Comments F/U for TF change/tolerance
[2019-08-08] MEDS: FOLIC ACID 1 MG TAB PO SCH (11:08)
[2019-08-08] MEDS: ASPIRIN 81 MG TAB CHEW PO SCH (11:08)
[2019-08-08] MEDS: levETIRAcetam 500 MG/5 ML ORAL LIQD FEEDTUBE SCH ×2 (11:08→21:06)
[2019-08-08] MEDS: ENOXAPARIN 40 MG/0.4 ML INJ SUB-Q SCH (11:09)
[2019-08-08] MEDS: FAMOTIDINE 20 MG TAB PO SCH ×2 (11:09→21:06)
[2019-08-08] MEDS: DOCUSATE SODIUM 100 MG/10 ML ORAL LIQD PO SCH ×2 (11:09→21:08)
--- NOTE | 2019-08-08 11:20 | Cat Scan Report ---
CT CHEST WITH CONTRAST HISTORY: Worsening fever and leukocytosis. COMPARISON: 08/06/2016 TECHNIQUE: Routine chest CT exam performed following intravenous contrast administration. Note: All CT scans at this location are performed using CT dose reduction employed for ALARA by means of automa twyla exposure control. CONTRAST: 100 mL Omnipaque 300. FINDINGS: CHEST CT:The bolus of contrast was missed because of movement by the patient and no contrast enhancem ent is identified on the scan. Heart and Pericardium: No significant abnormality. Vasculature: No significant abnormality. Lymphatics: No lymphadenopathy. Lungs: Right upper lobe pneumonia with consolidation and air bronchograms extending from the hilum to the right upper lateral pleura. A 2.4 cm cavitation versus bulla within the area of consolidation in the upper lobe. There is also a 2 cm bulla of the right lower lobe. Left lower lobe pneumonia with a ir bronchograms and a moderate size left pleural effusion. No pulmonary nodule or mass. Trachea and Bronchi: There is an endotracheal tube in satisfactory position. Osseous Structures: Normal Additional Findings: Nasogastric tube tip in the stomach. The upper abdomen is unremarkable. IMPRESSION: 1. Right upper lobe pneumonia with consolidation. 2. A 2.4 cm cavitation versus bulla of the right upper lobe. 3. Left lower lobe pneumonia and a moderate size left pleural effusion. 4. Tuberculosis should be a consideration particularly for the right upper lobe pneumonia. Signer Name: Niranjan Carr MD Signed: 08/08/2019 11:16 AM Workstation Name: [id number]
--- NOTE | 2019-08-08 12:58 | Progress Note ---
Assessment and Plan S/p Cardiopulmonary arrest with ROSC Severe Sepsis with septic shock. Acute hypoxemic respiratory failure on MVS COVID-19 positive with elevated markers Bilateral pneumonia Elevated LFTs. Oropharyngeal dysphagia s/p PEG Acute kidney injury Decubitus ulcers-unstageable Moderate protein calorie malnutriton [id number] metabolic acidosis Leukocytosis Thrombocytosis Microcytic anemia Repeat COVID testing to help facilitate trach/PEG placement Continue with NGT feeding, PEG tube dislodged over night Empiric antibiotics, await CT chest, abdomen and pelvis for further management decision Discussed with ID service Continue all care as documented -Continue enoxaparin for VTE prophylaxis- currently has severe thrombocytosis -On Fentanyl infusion, at 1mcg to allow f weaning trials -Continue to coordinate sedation interruption( RN) and SBT( RT) today to optimize chances of success with weaning trial -ABG, CXR prn - continue airborne, droplet and contact isolation for COVID-19 - continue wound care per WCT - sedation prn for target RASS 0 to -1 - continue to wean supplemental oxygen for target O2 sat's > 90% - Daily SAT's and SBT assessment as tolerated - VAP bundle addressed - continue lung protective strategies - continue bronchodilators with pulmonary hygiene per RT - wean per pulmonary driven protocols otherwise - accuchecks with glycemic control per SSI (While critically ill target blood glucose of 140-180 mg/dL; avoid hypoglycemia) - continue to avoid benzodiazepines, reduce the possibility of delirium - prn analgesia per CPOT score - Maintenance of sleep-wake cycle, avoid delirium - continue enteral nutritional support at goal rate as tolerated - VTE prophylaxis-SCDs/Enoxaparin -Stress ulcer prophylaxis- Famotidine - PT/OT/ROM exercises - continue mobility protocol, off loading and skin assessment for pressure ulcer prevention - Monitor hemodynamics closely -Wright catheter in this critically ill patient with unstageable sacral decubitus ulcer -PEG site care - continue other care per attending / other consultants - discharge planning ongoing concurrently .... Re-evaluate in am & prn CONDITION: CRITICAL PROGNOSIS: GUARDED CODE STATUS: DNAR Called his family to discuss goals of care, wants us to continue to treat aggressively at this time. The high probability of a clinically significant, sudden or life-threatening deterioration of the [respiratory ,cardiovascular, neurology] system(s) required my full and direct attention, intervention and personal management. The aggregate critical care time was [31] minutes without overlap. Time includes spent on; [x] Data Review and interpretation [x] Patient assessment and monitoring of vital signs [x] Documentation [x] Medication orders and management Subjective Date of service: 08/08/19 Principal diagnosis: Bilateral pneumonia, severe sepsis with septic shock, encephalopathy Interval history: The patient is a 69-year-old male with CVA, hypertension, dementia, schizophrenia, alcohol use disorder was admitted to the emergency room after being brought in by EMS with progressive shortness of breath and unresponsiveness. He was noted to have agonal breathing and a faint pulse requiring CPR. Patient was intubated and brought to the hospital. It seems, patient was on home hospice. Currently, remains critically ill, intubated, on mechanical ventilation. His COVID test resulted positive. Patient is seen today for: s/p cardiopulmonary arrest with ROSC;Ac hypoxemic Re sp failure on MVS; Severe sepsis with Shock; Bilateral Pneumonia; POSITIVE coronavirus-19 infection. Seen and examined at bedside; 24hour events reviewed; nursing and respiratory care staff consulted; no adverse overnight events reported to me; resting in bed.Ongoing fevers with persistent leukocytosis. Remains COVID positive On MVS and tolerating it well; on fentanyl at 1mcg Tolerating tube feedings, Mental status changes persist, will spontaneously open eyes Current setting AC-VC 14/500/30%/PEEP 6 Was seen by Gen Surg in consult for trach placement No new issues Objective Vital Signs - 12hr 08/08/19 08/08/19 08/08/19 01:00 02:00 03:00 Temperature Pulse Rate 94 H 90 91 H Respiratory 13 11 L 15 Rate Respiratory Rate [Back] Blood Pressure 153/91 153/86 142/81 O2 Sat by Pulse 100 100 100 Oximetry 08/08/19 08/08/19 08/08/19 03:41 04:00 04:03 Temperature 99.6 F Pulse Rate 94 H 92 H 88 Respiratory 18 Rate Respiratory Rate [Back] Blood Pressure 147/85 147/85 O2 Sat by Pulse 100 100 Oximetry 08/08/19 08/08/19 08/08/19 05:00 06:00 07:00 Temperature Pulse Rate 116 H 110 H 103 H Respiratory 21 14 16 Rate Respiratory Rate [Back] Blood Pressure 115/61 120/71 131/76 O2 Sat by Pulse 94 99 100 Oximetry 08/08/19 08/08/19 08/08/19 07:55 08:00 09:00 Temperature 99.9 F H Pulse Rate 110 H 97 H 101 H Respiratory 14 14 21 Rate Respiratory Rate [Back] Blood Pressure 120/71 132/78 150/82 O2 Sat by Pulse 99 100 100 Oximetry 08/08/19 08/08/19 08/08/19 10:00 11:00 11:20 Temperature Pulse Rate 108 H 112 H 110 H Respiratory 18 16 13 Rate Respiratory 18 Rate [Back] Blood Pressure 127/75 119/65 120/71 O2 Sat by Pulse 96 96 99 Oximetry 08/08/19 12:00 Temperature 99.5 F Pulse Rate 106 H Respiratory 15 Rate Respiratory Rate [Back] Blood Pressure 115/64 O2 Sat by Pulse 96 Oximetry Constitutional: appears uncomfortable, other (eelderly and chronically ill looking AAM, normocephalic with mildly increased respiratory effort at rest) Eyes: non-icteric ENT: oropharynx moist, other (ETT 7.0 at 23 cm RUTH) Neck: supple, no lymphadenopathy, no JVD Effort: mildly labored Ascultation: Bilateral: diminished breath sounds, rhonchi Percussion: Bilateral: not dull Cardiovascular: regular rate and rhythm, other (S1,S2) Gastrointestinal: normoactive bowel sounds, soft, non-tender, non-distended, other (+ PEG tube with mild TF leakage) Integumentary: decubitus ulcer Extremities: no cyanosis, no edema, pink and warm, pulses normal Neurologic: unable to assess Psychiatric: other (Unable to assess re: AMS) CBC and BMP: 08/08/19 04:41 08/08/19 04:41 ABG, PT/INR, D-dimer: ABG ABG pH 7.445 pH Units (7.350-7.450) 08/07/19 11:10 ABG pCO2 50.5 mm Hg 08/07/19 11:10 ABG pO2 73.3 mm Hg (80.0-90.0) L 08/07/19 11:10 ABG O2 Saturation 96.5 % (95.0-99.0) 08/07/19 11:10 PT/INR, D-dimer PT 16.0 Sec. (12.2-14.9) H 07/03/19 22:20 INR 1.26 (0.87-1.13) H 07/03/19 22:20 D-Dimer 1808.06 ng/mlDDU (0-234) H 08/07/19 10:24 Abnormal lab findings: Abnormal Labs 07/03/19 07/03/19 07/03/19 19:57 21:10 21:13 WBC RBC Hgb Hct MCV MCH MCHC RDW Plt Count Lymph % (Auto) [place] % (Auto) Lymph # [place] # Baso # Seg Neutrophils % Seg Neuts % (Manual) Lymphocytes % (Manual) Monocytes % (Manual) Nucleated RBC % Seg Neutrophils # Seg Neutrophils # Man Lymphocytes # (Manual) Monocytes # (Manual) Basophils # (Manual) PT INR D-Dimer ABG pH 7.238 L ABG pO2 210.8 H ABG HCO3 15.4 L ABG O2 Saturation 99.2 H ABG Base Excess -11.1 L ABG Hemoglobin 8.0 L Oxyhemoglobin Sodium 124 L Potassium Chloride 92.9 L Carbon Dioxide 10 L BUN 23 H Creatinine 0.5 L Glucose 118 H POC Glucose Lactic Acid Calcium 7.0 L Magnesium Iron TIBC Ferritin AST 70 H ALT 88 H Lactate Dehydrogenase Troponin T 0.032 H C-Reactive Protein Total Protein 5.0 L Albumin 1.8 L Prealbumin Cholesterol 47 L LDL Cholesterol Direct 25 L HDL Cholesterol 20 L Urine WBC (Auto) 12.0 H Vancomycin Trough Coronavirus (PCR) Crossmatch 07/03/19 07/03/19 07/03/19 22:20 22:20 22:20 WBC 30.5 H RBC 2.96 L Hgb 7.7 L Hct 23.9 L MCV 81 L MCH 26 L MCHC RDW 18.6 H Plt Count 459 H Lymph % (Auto) [place] % (Auto) Lymph # [place] # Baso # Seg Neutrophils % Seg Neuts % (Manual) 93.0 H Lymphocytes % (Manual) 0.5 L Monocytes % (Manual) Nucleated RBC % Seg Neutrophils # Seg Neutrophils # Man 28.4 H Lymphocytes # (Manual) 0.2 L Monocytes # (Manual) Basophils # (Manual) PT 16.0 H INR 1.26 H D-Dimer ABG pH ABG pO2 ABG HCO3 ABG O2 Saturation ABG Base Excess ABG Hemoglobin Oxyhemoglobin Sodium Potassium Chloride Carbon Dioxide BUN Creatinine Glucose POC Glucose Lactic Acid 6.90 H* Calcium Magnesium Iron TIBC Ferritin AST ALT Lactate Dehydrogenase Troponin T C-Reactive Protein Total Protein Albumin Prealbumin Cholesterol LDL Cholesterol Direct HDL Cholesterol Urine WBC (Auto) Vancomycin Trough Coronavirus (PCR) Crossmatch 07/03/19 07/04/19 07/04/19 23:58 05:15 07:05 WBC 17.1 H RBC 3.22 L Hgb 8.3 L Hct 25.4 L MCV 79 L MCH 26 L MCHC RDW 18.6 H Plt Count Lymph % (Auto) [place] % (Auto) Lymph # [place] # Baso # Seg Neutrophils % Seg Neuts % (Manual) 74.0 H Lymphocytes % (Manual) 0 L Monocytes % (Manual) Nucleated RBC % Seg Neutrophils # Seg Neutrophils # Man 12.7 H Lymphocytes # (Manual) 0.0 L Monocytes # (Manual) Basophils # (Manual) PT INR D-Dimer ABG pH 7.310 L ABG pO2 73.2 L ABG HCO3 17.8 L ABG O2 Saturation 93.8 L ABG Base Excess -7.7 L ABG Hemoglobin 9.6 L Oxyhemoglobin 92.3 L Sodium Potassium Chloride Carbon Dioxide BUN Creatinine Glucose POC Glucose Lactic Acid 7.10 H* Calcium Magnesium Iron TIBC Ferritin AST ALT Lactate Dehydrogenase Troponin T C-Reactive Protein Total Protein Albumin Prealbumin Cholesterol LDL Cholesterol Direct HDL Cholesterol Urine WBC (Auto) Vancomycin Trough Coronavirus (PCR) Crossmatch 07/04/19 07/04/19 07/04/19 07:05 07:05 07:05 WBC RBC Hgb Hct MCV MCH MCHC RDW Plt Count Lymph % (Auto) [place] % (Auto) Lymph # [place] # Baso # Seg Neutrophils % Seg Neuts % (Manual) Lymphocytes % (Manual) Monocytes % (Manual) Nucleated RBC % Seg Neutrophils # Seg Neutrophils # Man Lymphocytes # (Manual) Monocytes # (Manual) Basophils # (Manual) PT INR D-Dimer ABG pH ABG pO2 ABG HCO3 ABG O2 Saturation ABG Base Excess ABG Hemoglobin Oxyhemoglobin Sodium 120 L Potassium 5.1 H Chloride 90.0 L Carbon Dioxide 14 L BUN 26 H Creatinine 0.5 L Glucose POC Glucose Lactic Acid 3.30 H* Calcium 8.0 L Magnesium Iron 9 L TIBC 97 L Ferritin AST 73 H ALT 91 H Lactate Dehydrogenase Troponin T C-Reactive Protein Total Protein 5.5 L Albumin 2.0 L Prealbumin Cholesterol LDL Cholesterol Direct HDL Cholesterol Urine WBC (Auto) Vancomycin Trough Coronavirus (PCR) Crossmatch 07/04/19 07/04/19 07/04/19 09:39 09:39 09:39 WBC RBC Hgb Hct MCV MCH MCHC RDW Plt Count Lymph % (Auto) [place] % (Auto) Lymph # [place] # Baso # Seg Neutrophils % Seg Neuts % (Manual) Lymphocytes % (Manual) Monocytes % (Manual) Nucleated RBC % Seg Neutrophils # Seg Neutrophils # Man Lymphocytes # (Manual) Monocytes # (Manual) Basophils # (Manual) PT INR D-Dimer 1419.14 H ABG pH ABG pO2 ABG HCO3 ABG O2 Saturation ABG Base Excess ABG Hemoglobin Oxyhemoglobin Sodium Potassium Chloride Carbon Dioxide BUN Creatinine Glucose POC Glucose Lactic Acid Calcium Magnesium Iron TIBC Ferritin 1719.0 H AST ALT Lactate Dehydrogenase 234 H Troponin T C-Reactive Protein 15.50 H Total Protein Albumin Prealbumin Cholesterol LDL Cholesterol Direct HDL Cholesterol Urine WBC (Auto) Vancomycin Trough Coronavirus (PCR) Crossmatch 07/04/19 07/04/19 07/04/19 10:09 18:08 18:28 WBC RBC Hgb Hct MCV MCH MCHC RDW Plt Count Lymph % (Auto) [place] % (Auto) Lymph # [place] # Baso # Seg Neutrophils % Seg Neuts % (Manual) Lymphocytes % (Manual) Monocytes % (Manual) Nucleated RBC % Seg Neutrophils # Seg Neutrophils # Man Lymphocytes # (Manual) Monocytes # (Manual) Basophils # (Manual) PT INR D-Dimer ABG pH ABG pO2 ABG HCO3 ABG O2 Saturation ABG Base Excess ABG Hemoglobin Oxyhemoglobin Sodium 117 L* Potassium 5.6 H Chloride 90.3 L Carbon Dioxide 16 L BUN 28 H Creatinine 0.5 L Glucose 58 L POC Glucose 65 L Lactic Acid Calcium 8.2 L Magnesium Iron TIBC Ferritin AST ALT Lactate Dehydrogenase Troponin T C-Reactive Protein Total Protein Albumin Prealbumin Cholesterol LDL Cholesterol Direct HDL Cholesterol Urine WBC (Auto) Vancomycin Trough Coronavirus (PCR) Positive A Crossmatch 07/04/19 07/04/19 07/04/19 23:45 Unknown Unknown WBC RBC Hgb Hct MCV MCH MCHC RDW Plt Count Lymph % (Auto) [place] % (Auto) Lymph # [place] # Baso # Seg Neutrophils % Seg Neuts % (Manual) Lymphocytes % (Manual) Monocytes % (Manual) Nucleated RBC % Seg Neutrophils # Seg Neutrophils # Man Lymphocytes # (Manual) Monocytes # (Manual) Basophils # (Manual) PT INR D-Dimer 759.77 H ABG pH ABG pO2 ABG HCO3 ABG O2 Saturation ABG Base Excess ABG Hemoglobin Oxyhemoglobin Sodium 122 L Potassium Chloride 93.0 L Carbon Dioxide 19 L BUN 27 H Creatinine 0.5 L Glucose POC Glucose Lactic Acid Calcium 8.3 L Magnesium Iron TIBC Ferritin 1301.0 H AST ALT Lactate Dehydrogenase Troponin T C-Reactive Protein Total Protein Albumin Prealbumin Cholesterol LDL Cholesterol Direct HDL Cholesterol Urine WBC (Auto) Vancomycin Trough Coronavirus (PCR) Crossmatch 07/04/19 07/05/19 07/05/19 Unknown 03:20 04:00 WBC RBC Hgb Hct MCV MCH MCHC RDW Plt Count Lymph % (Auto) [place] % (Auto) Lymph # [place] # Baso # Seg Neutrophils % Seg Neuts % (Manual) Lymphocytes % (Manual) Monocytes % (Manual) Nucleated RBC % Seg Neutrophils # Seg Neutrophils # Man Lymphocytes # (Manual) Monocytes # (Manual) Basophils # (Manual) PT INR D-Dimer ABG pH ABG pO2 60.6 L ABG HCO3 ABG O2 Saturation 93.5 L ABG Base Excess -2.4 L ABG Hemoglobin 6.9 L Oxyhemoglobin 92.0 L Sodium 125 L Potassium Chloride 92.6 L Carbon Dioxide 19 L BUN 24 H Creatinine 0.6 L Glucose POC Glucose Lactic Acid Calcium 8.2 L Magnesium 1.40 L Iron TIBC Ferritin AST ALT Lactate Dehydrogenase 242 H Troponin T C-Reactive Protein 16.70 H Total Protein Albumin Prealbumin Cholesterol LDL Cholesterol Direct HDL Cholesterol Urine WBC (Auto) Vancomycin Trough Coronavirus (PCR) Crossmatch 07/05/19 07/05/19 07/05/19 10:11 16:15 17:54 WBC 46.4 H* RBC 2.77 L Hgb 7.2 L Hct 21.9 L MCV 79 L MCH 26 L MCHC RDW 19.0 H Plt Count Lymph % (Auto) [place] % (Auto) Lymph # [place] # Baso # Seg Neutrophils % Seg Neuts % (Manual) 82.0 H Lymphocytes % (Manual) 1.0 L Monocytes % (Manual) Nucleated RBC % Seg Neutrophils # Seg Neutrophils # Man 38.0 H Lymphocytes # (Manual) 0.5 L Monocytes # (Manual) Basophils # (Manual) PT INR D-Dimer ABG pH ABG pO2 ABG HCO3 ABG O2 Saturation ABG Base Excess ABG Hemoglobin Oxyhemoglobin Sodium Potassium Chloride Carbon Dioxide BUN Creatinine Glucose POC Glucose 69 L Lactic Acid Calcium Magnesium Iron TIBC Ferritin AST ALT Lactate Dehydrogenase Troponin T C-Reactive Protein Total Protein Albumin Prealbumin Cholesterol LDL Cholesterol Direct HDL Cholesterol Urine WBC (Auto) Vancomycin Trough 23.2 H Coronavirus (PCR) Crossmatch 07/05/19 07/06/19 07/06/19 19:58 00:27 00:27 WBC RBC Hgb Hct MCV MCH MCHC RDW Plt Count Lymph % (Auto) [place] % (Auto) Lymph # [place] # Baso # Seg Neutrophils % Seg Neuts % (Manual) Lymphocytes % (Manual) Monocytes % (Manual) Nucleated RBC % Seg Neutrophils # Seg Neutrophils # Man Lymphocytes # (Manual) Monocytes # (Manual) Basophils # (Manual) PT INR D-Dimer 1333.22 H ABG pH ABG pO2 ABG HCO3 ABG O2 Saturation ABG Base Excess ABG Hemoglobin Oxyhemoglobin Sodium 127 L Potassium Chloride Carbon Dioxide BUN Creatinine Glucose POC Glucose Lactic Acid Calcium Magnesium Iron TIBC Ferritin 977.1 H AST ALT Lactate Dehydrogenase Troponin T C-Reactive Protein Total Protein Albumin Prealbumin Cholesterol LDL Cholesterol Direct HDL Cholesterol Urine WBC (Auto) Vancomycin Trough Coronavirus (PCR) Crossmatch 07/06/19 07/06/19 07/06/19 00:27 02:00 02:56 WBC RBC Hgb Hct MCV MCH MCHC RDW Plt Count Lymph % (Auto) [place] % (Auto) Lymph # [place] # Baso # Seg Neutrophils % Seg Neuts % (Manual) Lymphocytes % (Manual) Monocytes % (Manual) Nucleated RBC % Seg Neutrophils # Seg Neutrophils # Man Lymphocytes # (Manual) Monocytes # (Manual) Basophils # (Manual) PT INR D-Dimer ABG pH ABG pO2 70.3 L ABG HCO3 ABG O2 Saturation 94.8 L ABG Base Excess ABG Hemoglobin 8.0 L Oxyhemoglobin 93.2 L Sodium Potassium Chloride Carbon Dioxide BUN Creatinine Glucose POC Glucose 117 H Lactic Acid Calcium Magnesium Iron TIBC Ferritin AST ALT Lactate Dehydrogenase 236 H Troponin T C-Reactive Protein 22.90 H Total Protein Albumin Prealbumin Cholesterol LDL Cholesterol Direct HDL Cholesterol Urine WBC (Auto) Vancomycin Trough Coronavirus (PCR) Crossmatch 07/06/19 07/06/19 07/06/19 03:49 03:49 07:40 WBC 38.8 H RBC 2.51 L Hgb 6.7 L Hct 19.9 L* MCV 79 L MCH 27 L MCHC RDW 19.2 H Plt Count Lymph % (Auto) [place] % (Auto) Lymph # [place] # Baso # Seg Neutrophils % Seg Neuts % (Manual) 90.5 H Lymphocytes % (Manual) 1.0 L Monocytes % (Manual) Nucleated RBC % Seg Neutrophils # Seg Neutrophils # Man 35.1 H Lymphocytes # (Manual) 0.4 L Monocytes # (Manual) Basophils # (Manual) PT INR D-Dimer ABG pH ABG pO2 ABG HCO3 ABG O2 Saturation ABG Base Excess ABG Hemoglobin Oxyhemoglobin Sodium 131 L Potassium Chloride 96.9 L Carbon Dioxide 18 L BUN 23 H Creatinine 0.5 L Glucose POC Glucose Lactic Acid Calcium 8.0 L Magnesium Iron TIBC Ferritin AST ALT Lactate Dehydrogenase Troponin T C-Reactive Protein Total Protein Albumin Prealbumin Cholesterol LDL Cholesterol Direct HDL Cholesterol Urine WBC (Auto) Vancomycin Trough Coronavirus (PCR) Crossmatch See Detail 07/06/19 07/06/19 07/06/19 12:38 14:39 20:00 WBC RBC Hgb Hct MCV MCH MCHC RDW Plt Count Lymph % (Auto) [place] % (Auto) Lymph # [place] # Baso # Seg Neutrophils % Seg Neuts % (Manual) Lymphocytes % (Manual) Monocytes % (Manual) Nucleated RBC % Seg Neutrophils # Seg Neutrophils # Man Lymphocytes # (Manual) Monocytes # (Manual) Basophils # (Manual) PT INR D-Dimer ABG pH ABG pO2 ABG HCO3 ABG O2 Saturation ABG Base Excess ABG Hemoglobin Oxyhemoglobin Sodium Potassium Chloride Carbon Dioxide BUN Creatinine Glucose POC Glucose 112 H 111 H 140 H Lactic Acid Calcium Magnesium Iron TIBC Ferritin AST ALT Lactate Dehydrogenase Troponin T C-Reactive Protein Total Protein Albumin Prealbumin Cholesterol LDL Cholesterol Direct HDL Cholesterol Urine WBC (Auto) Vancomycin Trough Coronavirus (PCR) Crossmatch 07/06/19 07/06/19 07/07/19 22:43 22:56 02:20 WBC RBC Hgb 7.9 L Hct 23.1 L MCV MCH MCHC RDW Plt Count Lymph % (Auto) [place] % (Auto) Lymph # [place] # Baso # Seg Neutrophils % Seg Neuts % (Manual) Lymphocytes % (Manual) Monocytes % (Manual) Nucleated RBC % Seg Neutrophils # Seg Neutrophils # Man Lymphocytes # (Manual) Monocytes # (Manual) Basophils # (Manual) PT INR D-Dimer ABG pH ABG pO2 ABG HCO3 ABG O2 Saturation ABG Base Excess ABG Hemoglobin Oxyhemoglobin Sodium Potassium Chloride Carbon Dioxide BUN Creatinine Glucose POC Glucose 122 H 149 H Lactic Acid Calcium Magnesium Iron TIBC Ferritin AST ALT Lactate Dehydrogenase Troponin T C-Reactive Protein Total Protein Albumin Prealbumin Cholesterol LDL Cholesterol Direct HDL Cholesterol Urine WBC (Auto) Vancomycin Trough Coronavirus (PCR) Crossmatch 07/07/19 07/07/19 07/07/19 04:35 05:27 05:34 WBC 23.1 H RBC 3.00 L Hgb 8.1 L Hct 24.2 L MCV 81 L MCH 27 L MCHC RDW 20.6 H Plt Count Lymph % (Auto) [place] % (Auto) Lymph # [place] # Baso # Seg Neutrophils % Seg Neuts % (Manual) 90.0 H Lymphocytes % (Manual) 2.0 L Monocytes % (Manual) Nucleated RBC % Seg Neutrophils # Seg Neutrophils # Man 20.8 H Lymphocytes # (Manual) 0.5 L Monocytes # (Manual) Basophils # (Manual) PT INR D-Dimer ABG pH ABG pO2 65.8 L ABG HCO3 ABG O2 Saturation 92.2 L ABG Base Excess ABG Hemoglobin 8.3 L Oxyhemoglobin 90.6 L Sodium Potassium Chloride Carbon Dioxide BUN Creatinine Glucose POC Glucose 132 H Lactic Acid Calcium Magnesium Iron TIBC Ferritin AST ALT Lactate Dehydrogenase Troponin T C-Reactive Protein Total Protein Albumin Prealbumin Cholesterol LDL Cholesterol Direct HDL Cholesterol Urine WBC (Auto) Vancomycin Trough Coronavirus (PCR) Crossmatch 07/07/19 07/07/19 07/07/19 05:34 11:50 15:58 WBC RBC Hgb 8.1 L Hct 24.2 L MCV MCH MCHC RDW Plt Count Lymph % (Auto) [place] % (Auto) Lymph # [place] # Baso # Seg Neutrophils % Seg Neuts % (Manual) Lymphocytes % (Manual) Monocytes % (Manual) Nucleated RBC % Seg Neutrophils # Seg Neutrophils # Man Lymphocytes # (Manual) Monocytes # (Manual) Basophils # (Manual) PT INR D-Dimer ABG pH ABG pO2 ABG HCO3 ABG O2 Saturation ABG Base Excess ABG Hemoglobin Oxyhemoglobin Sodium 135 L Potassium 3.3 L Chloride Carbon Dioxide 20 L BUN 27 H Creatinine 0.6 L Glucose 121 H POC Glucose 123 H Lactic Acid Calcium 8.0 L Magnesium Iron TIBC Ferritin AST ALT Lactate Dehydrogenase Troponin T C-Reactive Protein Total Protein Albumin Prealbumin Cholesterol LDL Cholesterol Direct HDL Cholesterol Urine WBC (Auto) Vancomycin Trough Coronavirus (PCR) Crossmatch 07/07/19 07/07/19 07/07/19 17:42 22:00 23:53 WBC RBC Hgb 8.0 L Hct 23.4 L MCV MCH MCHC RDW Plt Count Lymph % (Auto) [place] % (Auto) Lymph # [place] # Baso # Seg Neutrophils % Seg Neuts % (Manual) Lymphocytes % (Manual) Monocytes % (Manual) Nucleated RBC % Seg Neutrophils # Seg Neutrophils # Man Lymphocytes # (Manual) Monocytes # (Manual) Basophils # (Manual) PT INR D-Dimer ABG pH ABG pO2 ABG HCO3 ABG O2 Saturation ABG Base Excess ABG Hemoglobin Oxyhemoglobin Sodium Potassium Chloride Carbon Dioxide BUN Creatinine Glucose POC Glucose 107 H 117 H Lactic Acid Calcium Magnesium Iron TIBC Ferritin AST ALT Lactate Dehydrogenase Troponin T C-Reactive Protein Total Protein Albumin Prealbumin Cholesterol LDL Cholesterol Direct HDL Cholesterol Urine WBC (Auto) Vancomycin Trough Coronavirus (PCR) Crossmatch 07/08/19 07/08/19 07/08/19 00:45 00:45 00:45 WBC RBC Hgb Hct MCV MCH MCHC RDW Plt Count Lymph % (Auto) [place] % (Auto) Lymph # [place] # Baso # Seg Neutrophils % Seg Neuts % (Manual) Lymphocytes % (Manual) Monocytes % (Manual) Nucleated RBC % Seg Neutrophils # Seg Neutrophils # Man Lymphocytes # (Manual) Monocytes # (Manual) Basophils # (Manual) PT INR D-Dimer 1142.18 H ABG pH ABG pO2 ABG HCO3 ABG O2 Saturation ABG Base Excess ABG Hemoglobin Oxyhemoglobin Sodium Potassium Chloride Carbon Dioxide BUN Creatinine Glucose POC Glucose Lactic Acid Calcium Magnesium Iron TIBC Ferritin 839.0 H AST ALT Lactate Dehydrogenase 253 H Troponin T C-Reactive Protein 18.90 H Total Protein Albumin Prealbumin Cholesterol LDL Cholesterol Direct HDL Cholesterol Urine WBC (Auto) Vancomycin Trough Coronavirus (PCR) Crossmatch 07/08/19 07/08/19 07/08/19 04:30 05:11 12:02 WBC RBC Hgb Hct MCV MCH MCHC RDW Plt Count Lymph % (Auto) [place] % (Auto) Lymph # [place] # Baso # Seg Neutrophils % Seg Neuts % (Manual) Lymphocytes % (Manual) Monocytes % (Manual) Nucleated RBC % Seg Neutrophils # Seg Neutrophils # Man Lymphocytes # (Manual) Monocytes # (Manual) Basophils # (Manual) PT INR D-Dimer ABG pH ABG pO2 66.0 L ABG HCO3 ABG O2 Saturation 92.3 L ABG Base Excess ABG Hemoglobin 7.7 L Oxyhemoglobin 90.7 L Sodium Potassium Chloride Carbon Dioxide BUN Creatinine Glucose POC Glucose 108 H 153 H Lactic Acid Calcium Magnesium Iron TIBC Ferritin AST ALT Lactate Dehydrogenase Troponin T C-Reactive Protein Total Protein Albumin Prealbumin Cholesterol LDL Cholesterol Direct HDL Cholesterol Urine WBC (Auto) Vancomycin Trough Coronavirus (PCR) Crossmatch 07/08/19 07/08/19 07/08/19 16:15 18:22 23:35 WBC RBC Hgb Hct MCV MCH MCHC RDW Plt Count Lymph % (Auto) [place] % (Auto) Lymph # [place] # Baso # Seg Neutrophils % Seg Neuts % (Manual) Lymphocytes % (Manual) Monocytes % (Manual) Nucleated RBC % Seg Neutrophils # Seg Neutrophils # Man Lymphocytes # (Manual) Monocytes # (Manual) Basophils # (Manual) PT INR D-Dimer ABG pH ABG pO2 ABG HCO3 ABG O2 Saturation ABG Base Excess ABG Hemoglobin Oxyhemoglobin Sodium 134 L Potassium 3.3 L Chloride Carbon Dioxide 21 L BUN 27 H Creatinine 0.6 L Glucose 146 H POC Glucose 134 H 133 H Lactic Acid Calcium Magnesium Iron TIBC Ferritin AST ALT Lactate Dehydrogenase Troponin T C-Reactive Protein Total Protein Albumin Prealbumin Cholesterol LDL Cholesterol Direct HDL Cholesterol Urine WBC (Auto) Vancomycin Trough Coronavirus (PCR) Crossmatch 07/09/19 07/09/19 07/09/19 04:30 04:30 05:00 WBC 18.9 H RBC 2.77 L Hgb 7.4 L Hct 22.8 L MCV 82 L MCH 27 L MCHC RDW 20.9 H Plt Count 130 L Lymph % (Auto) [place] % (Auto) Lymph # [place] # Baso # Seg Neutrophils % Seg Neuts % (Manual) 84.0 H Lymphocytes % (Manual) 0 L Monocytes % (Manual) Nucleated RBC % Seg Neutrophils # Seg Neutrophils # Man 15.9 H Lymphocytes # (Manual) 0.0 L Monocytes # (Manual) Basophils # (Manual) PT INR D-Dimer ABG pH ABG pO2 ABG HCO3 ABG O2 Saturation ABG Base Excess ABG Hemoglobin Oxyhemoglobin Sodium Potassium 3.1 L Chloride Carbon Dioxide BUN 26 H Creatinine 0.5 L Glucose 125 H POC Glucose 155 H Lactic Acid Calcium Magnesium Iron TIBC Ferritin AST ALT Lactate Dehydrogenase Troponin T C-Reactive Protein Total Protein Albumin Prealbumin Cholesterol LDL Cholesterol Direct HDL Cholesterol Urine WBC (Auto) Vancomycin Trough Coronavirus (PCR) Crossmatch 07/09/19 07/09/19 07/09/19 05:55 12:22 17:50 WBC RBC Hgb Hct MCV MCH MCHC RDW Plt Count Lymph % (Auto) [place] % (Auto) Lymph # [place] # Baso # Seg Neutrophils % Seg Neuts % (Manual) Lymphocytes % (Manual) Monocytes % (Manual) Nucleated RBC % Seg Neutrophils # Seg Neutrophils # Man Lymphocytes # (Manual) Monocytes # (Manual) Basophils # (Manual) PT INR D-Dimer ABG pH ABG pO2 62.8 L ABG HCO3 ABG O2 Saturation ABG Base Excess ABG Hemoglobin 6.1 L Oxyhemoglobin 93.9 L Sodium Potassium Chloride Carbon Dioxide BUN Creatinine Glucose POC Glucose 115 H 133 H Lactic Acid Calcium Magnesium Iron TIBC Ferritin AST ALT Lactate Dehydrogenase Troponin T C-Reactive Protein Total Protein Albumin Prealbumin Cholesterol LDL Cholesterol Direct HDL Cholesterol Urine WBC (Auto) Vancomycin Trough Coronavirus (PCR) Crossmatch 07/10/19 07/10/19 07/10/19 00:38 04:00 04:00 WBC RBC Hgb Hct MCV MCH MCHC RDW Plt Count Lymph % (Auto) [place] % (Auto) Lymph # [place] # Baso # Seg Neutrophils % Seg Neuts % (Manual) Lymphocytes % (Manual) Monocytes % (Manual) Nucleated RBC % Seg Neutrophils # Seg Neutrophils # Man Lymphocytes # (Manual) Monocytes # (Manual) Basophils # (Manual) PT INR D-Dimer ABG pH ABG pO2 ABG HCO3 ABG O2 Saturation ABG Base Excess ABG Hemoglobin Oxyhemoglobin Sodium Potassium Chloride 107.9 H Carbon Dioxide BUN 26 H Creatinine 0.4 L Glucose 137 H POC Glucose 122 H Lactic Acid Calcium Magnesium 1.50 L Iron TIBC Ferritin AST ALT Lactate Dehydrogenase 277 H Troponin T C-Reactive Protein 15.10 H Total Protein Albumin Prealbumin Cholesterol LDL Cholesterol Direct HDL Cholesterol Urine WBC (Auto) Vancomycin Trough Coronavirus (PCR) Crossmatch 07/10/19 07/10/19 07/10/19 04:07 05:21 17:25 WBC RBC Hgb Hct MCV MCH MCHC RDW Plt Count Lymph % (Auto) [place] % (Auto) Lymph # [place] # Baso # Seg Neutrophils % Seg Neuts % (Manual) Lymphocytes % (Manual) Monocytes % (Manual) Nucleated RBC % Seg Neutrophils # Seg Neutrophils # Man Lymphocytes # (Manual) Monocytes # (Manual) Basophils # (Manual) PT INR D-Dimer ABG pH ABG pO2 65.6 L ABG HCO3 26.3 H ABG O2 Saturation ABG Base Excess ABG Hemoglobin 6.7 L Oxyhemoglobin Sodium Potassium Chloride Carbon Dioxide BUN Creatinine Glucose POC Glucose 144 H 113 H Lactic Acid Calcium Magnesium Iron TIBC Ferritin AST ALT Lactate Dehydrogenase Troponin T C-Reactive Protein Total Protein Albumin Prealbumin Cholesterol LDL Cholesterol Direct HDL Cholesterol Urine WBC (Auto) Vancomycin Trough Coronavirus (PCR) Crossmatch 07/11/19 07/11/19 07/11/19 00:07 05:14 05:25 WBC RBC Hgb Hct MCV MCH MCHC RDW Plt Count Lymph % (Auto) [place] % (Auto) Lymph # [place] # Baso # Seg Neutrophils % Seg Neuts % (Manual) Lymphocytes % (Manual) Monocytes % (Manual) Nucleated RBC % Seg Neutrophils # Seg Neutrophils # Man Lymphocytes # (Manual) Monocytes # (Manual) Basophils # (Manual) PT INR D-Dimer ABG pH ABG pO2 ABG HCO3 ABG O2 Saturation ABG Base Excess ABG Hemoglobin 5.8 L Oxyhemoglobin Sodium Potassium Chloride 108.0 H Carbon Dioxide BUN 26 H Creatinine 0.4 L Glucose 110 H POC Glucose 121 H Lactic Acid Calcium Magnesium Iron TIBC Ferritin AST ALT Lactate Dehydrogenase Troponin T C-Reactive Protein Total Protein Albumin Prealbumin Cholesterol LDL Cholesterol Direct HDL Cholesterol Urine WBC (Auto) Vancomycin Trough Coronavirus (PCR) Crossmatch 07/11/19 07/11/19 07/11/19 12:27 18:00 23:42 WBC RBC Hgb Hct MCV MCH MCHC RDW Plt Count Lymph % (Auto) [place] % (Auto) Lymph # [place] # Baso # Seg Neutrophils % Seg Neuts % (Manual) Lymphocytes % (Manual) Monocytes % (Manual) Nucleated RBC % Seg Neutrophils # Seg Neutrophils # Man Lymphocytes # (Manual) Monocytes # (Manual) Basophils # (Manual) PT INR D-Dimer ABG pH ABG pO2 ABG HCO3 ABG O2 Saturation ABG Base Excess ABG Hemoglobin Oxyhemoglobin Sodium Potassium Chloride Carbon Dioxide BUN Creatinine Glucose POC Glucose 158 H 141 H 142 H Lactic Acid Calcium Magnesium Iron TIBC Ferritin AST ALT Lactate Dehydrogenase Troponin T C-Reactive Protein Total Protein Albumin Prealbumin Cholesterol LDL Cholesterol Direct HDL Cholesterol Urine WBC (Auto) Vancomycin Trough Coronavirus (PCR) Crossmatch 07/12/19 07/12/19 07/12/19 04:46 04:46 05:23 WBC 23.6 H RBC 2.51 L Hgb 6.7 L Hct 20.8 L MCV 83 L MCH 27 L MCHC RDW 20.3 H Plt Count Lymph % (Auto) [place] % (Auto) Lymph # [place] # Baso # Seg Neutrophils % Seg Neuts % (Manual) 94.0 H Lymphocytes % (Manual) 4.0 L Monocytes % (Manual) Nucleated RBC % Seg Neutrophils # Seg Neutrophils # Man 22.2 H Lymphocytes # (Manual) 0.9 L Monocytes # (Manual) Basophils # (Manual) PT INR D-Dimer ABG pH ABG pO2 ABG HCO3 ABG O2 Saturation ABG Base Excess ABG Hemoglobin Oxyhemoglobin Sodium Potassium Chloride 107.1 H Carbon Dioxide BUN 25 H Creatinine 0.4 L Glucose 122 H POC Glucose 118 H Lactic Acid Calcium Magnesium Iron TIBC Ferritin AST ALT Lactate Dehydrogenase Troponin T C-Reactive Protein Total Protein Albumin Prealbumin Cholesterol LDL Cholesterol Direct HDL Cholesterol Urine WBC (Auto) Vancomycin Trough Coronavirus (PCR) Crossmatch 07/12/19 07/12/19 07/12/19 08:49 11:36 18:15 WBC RBC Hgb Hct MCV MCH MCHC RDW Plt Count Lymph % (Auto) [place] % (Auto) Lymph # [place] # Baso # Seg Neutrophils % Seg Neuts % (Manual) Lymphocytes % (Manual) Monocytes % (Manual) Nucleated RBC % Seg Neutrophils # Seg Neutrophils # Man Lymphocytes # (Manual) Monocytes # (Manual) Basophils # (Manual) PT INR D-Dimer ABG pH ABG pO2 ABG HCO3 ABG O2 Saturation ABG Base Excess ABG Hemoglobin Oxyhemoglobin Sodium Potassium Chloride Carbon Dioxide BUN Creatinine Glucose POC Glucose 124 H 110 H Lactic Acid Calcium Magnesium Iron TIBC Ferritin AST ALT Lactate Dehydrogenase Troponin T C-Reactive Protein Total Protein Albumin Prealbumin Cholesterol LDL Cholesterol Direct HDL Cholesterol Urine WBC (Auto) Vancomycin Trough Coronavirus (PCR) Crossmatch See Detail 07/12/19 07/13/19 07/13/19 23:16 05:26 06:50 WBC 23.9 H RBC 2.58 L Hgb 6.9 L Hct 21.5 L MCV 83 L MCH 27 L MCHC RDW 19.0 H Plt Count Lymph % (Auto) [place] % (Auto) Lymph # [place] # Baso # Seg Neutrophils % Seg Neuts % (Manual) 96.0 H Lymphocytes % (Manual) 3.0 L Monocytes % (Manual) Nucleated RBC % Seg Neutrophils # Seg Neutrophils # Man 22.9 H Lymphocytes # (Manual) 0.7 L Monocytes # (Manual) Basophils # (Manual) PT INR D-Dimer ABG pH ABG pO2 ABG HCO3 ABG O2 Saturation ABG Base Excess ABG Hemoglobin Oxyhemoglobin Sodium Potassium Chloride Carbon Dioxide BUN Creatinine Glucose POC Glucose 108 H 126 H Lactic Acid Calcium Magnesium Iron TIBC Ferritin AST ALT Lactate Dehydrogenase Troponin T C-Reactive Protein Total Protein Albumin Prealbumin Cholesterol LDL Cholesterol Direct HDL Cholesterol Urine WBC (Auto) Vancomycin Trough Coronavirus (PCR) Crossmatch 07/13/19 07/13/19 07/13/19 06:50 12:38 18:05 WBC RBC Hgb Hct MCV MCH MCHC RDW Plt Count Lymph % (Auto) [place] % (Auto) Lymph # [place] # Baso # Seg Neutrophils % Seg Neuts % (Manual) Lymphocytes % (Manual) Monocytes % (Manual) Nucleated RBC % Seg Neutrophils # Seg Neutrophils # Man Lymphocytes # (Manual) Monocytes # (Manual) Basophils # (Manual) PT INR D-Dimer ABG pH ABG pO2 ABG HCO3 ABG O2 Saturation ABG Base Excess ABG Hemoglobin Oxyhemoglobin Sodium Potassium Chloride Carbon Dioxide BUN 33 H Creatinine 0.5 L Glucose 136 H POC Glucose 164 H 145 H Lactic Acid Calcium Magnesium Iron TIBC Ferritin AST ALT Lactate Dehydrogenase Troponin T C-Reactive Protein Total Protein Albumin Prealbumin Cholesterol LDL Cholesterol Direct HDL Cholesterol Urine WBC (Auto) Vancomycin Trough Coronavirus (PCR) Crossmatch 07/13/19 07/14/19 07/14/19 18:30 00:21 04:40 WBC 22.9 H RBC 2.45 L Hgb 6.6 L Hct 21.1 L MCV MCH 27 L MCHC 31 L RDW 19.2 H Plt Count Lymph % (Auto) [place] % (Auto) Lymph # [place] # Baso # Seg Neutrophils % Seg Neuts % (Manual) 91.0 H Lymphocytes % (Manual) 7.0 L Monocytes % (Manual) Nucleated RBC % Seg Neutrophils # Seg Neutrophils # Man 20.8 H Lymphocytes # (Manual) Monocytes # (Manual) Basophils # (Manual) PT INR D-Dimer ABG pH ABG pO2 58.1 L ABG HCO3 ABG O2 Saturation 88.7 L ABG Base Excess ABG Hemoglobin 7.8 L Oxyhemoglobin 86.8 L Sodium Potassium Chloride Carbon Dioxide BUN Creatinine Glucose POC Glucose 118 H Lactic Acid Calcium Magnesium Iron TIBC Ferritin AST ALT Lactate Dehydrogenase Troponin T C-Reactive Protein Total Protein Albumin Prealbumin Cholesterol LDL Cholesterol Direct HDL Cholesterol Urine WBC (Auto) Vancomycin Trough Coronavirus (PCR) Crossmatch 07/14/19 07/14/19 07/14/19 04:40 05:38 05:45 WBC RBC Hgb Hct MCV MCH MCHC RDW Plt Count Lymph % (Auto) [place] % (Auto) Lymph # [place] # Baso # Seg Neutrophils % Seg Neuts % (Manual) Lymphocytes % (Manual) Monocytes % (Manual) Nucleated RBC % Seg Neutrophils # Seg Neutrophils # Man Lymphocytes # (Manual) Monocytes # (Manual) Basophils # (Manual) PT INR D-Dimer ABG pH 7.230 L ABG pO2 72.1 L ABG HCO3 ABG O2 Saturation 89.3 L ABG Base Excess -2.7 L ABG Hemoglobin 6.7 L Oxyhemoglobin 87.7 L Sodium Potassium Chloride 107.4 H Carbon Dioxide BUN 45 H Creatinine Glucose 101 H POC Glucose 154 H Lactic Acid Calcium Magnesium Iron TIBC Ferritin AST ALT Lactate Dehydrogenase Troponin T C-Reactive Protein Total Protein Albumin Prealbumin Cholesterol LDL Cholesterol Direct HDL Cholesterol Urine WBC (Auto) Vancomycin Trough Coronavirus (PCR) Crossmatch 07/14/19 07/14/19 07/14/19 12:25 18:20 19:01 WBC 22.4 H RBC 2.70 L Hgb 7.5 L Hct 23.3 L MCV MCH MCHC RDW 19.5 H Plt Count Lymph % (Auto) [place] % (Auto) Lymph # [place] # Baso # Seg Neutrophils % Seg Neuts % (Manual) Lymphocytes % (Manual) Monocytes % (Manual) Nucleated RBC % Seg Neutrophils # Seg Neutrophils # Man Lymphocytes # (Manual) Monocytes # (Manual) Basophils # (Manual) PT INR D-Dimer ABG pH ABG pO2 ABG HCO3 ABG O2 Saturation ABG Base Excess ABG Hemoglobin Oxyhemoglobin Sodium Potassium Chloride Carbon Dioxide BUN Creatinine Glucose POC Glucose 136 H 131 H Lactic Acid Calcium Magnesium Iron TIBC Ferritin AST ALT Lactate Dehydrogenase Troponin T C-Reactive Protein Total Protein Albumin Prealbumin Cholesterol LDL Cholesterol Direct HDL Cholesterol Urine WBC (Auto) Vancomycin Trough Coronavirus (PCR) Crossmatch 07/15/19 07/15/19 07/15/19 00:17 04:35 05:18 WBC 20.6 H RBC 2.41 L Hgb 6.8 L Hct 20.7 L MCV MCH MCHC RDW 20.2 H Plt Count Lymph % (Auto) [place] % (Auto) Lymph # [place] # Baso # Seg Neutrophils % Seg Neuts % (Manual) 92.0 H Lymphocytes % (Manual) 5.0 L Monocytes % (Manual) Nucleated RBC % Seg Neutrophils # Seg Neutrophils # Man 19.0 H Lymphocytes # (Manual) 1.0 L Monocytes # (Manual) Basophils # (Manual) PT INR D-Dimer ABG pH 7.342 L ABG pO2 ABG HCO3 ABG O2 Saturation ABG Base Excess -3.1 L ABG Hemoglobin 7.2 L Oxyhemoglobin 94.9 L Sodium Potassium Chloride Carbon Dioxide BUN Creatinine Glucose POC Glucose 116 H Lactic Acid Calcium Magnesium Iron TIBC Ferritin AST ALT Lactate Dehydrogenase Troponin T C-Reactive Protein Total Protein Albumin Prealbumin Cholesterol LDL Cholesterol Direct HDL Cholesterol Urine WBC (Auto) Vancomycin Trough Coronavirus (PCR) Crossmatch 07/15/19 07/15/19 07/15/19 05:18 05:57 11:28 WBC RBC Hgb Hct MCV MCH MCHC RDW Plt Count Lymph % (Auto) [place] % (Auto) Lymph # [place] # Baso # Seg Neutrophils % Seg Neuts % (Manual) Lymphocytes % (Manual) Monocytes % (Manual) Nucleated RBC % Seg Neutrophils # Seg Neutrophils # Man Lymphocytes # (Manual) Monocytes # (Manual) Basophils # (Manual) PT INR D-Dimer ABG pH ABG pO2 ABG HCO3 ABG O2 Saturation ABG Base Excess ABG Hemoglobin Oxyhemoglobin Sodium Potassium Chloride Carbon Dioxide 20 L BUN 59 H Creatinine Glucose 140 H POC Glucose 139 H 117 H Lactic Acid Calcium Magnesium Iron TIBC Ferritin AST ALT Lactate Dehydrogenase Troponin T C-Reactive Protein Total Protein Albumin Prealbumin Cholesterol LDL Cholesterol Direct HDL Cholesterol Urine WBC (Auto) Vancomycin Trough Coronavirus (PCR) Crossmatch 07/15/19 07/16/1920 18:13 00:06 03:43 WBC RBC Hgb Hct MCV MCH MCHC RDW Plt Count Lymph % (Auto) [place] % (Auto) Lymph # [place] # Baso # Seg Neutrophils % Seg Neuts % (Manual) Lymphocytes % (Manual) Monocytes % (Manual) Nucleated RBC % Seg Neutrophils # Seg Neutrophils # Man Lymphocytes # (Manual) Monocytes # (Manual) Basophils # (Manual) PT INR D-Dimer ABG pH 7.344 L ABG pO2 68.6 L ABG HCO3 ABG O2 Saturation ABG Base Excess -3.5 L ABG Hemoglobin 6.1 L Oxyhemoglobin 93.3 L Sodium Potassium Chloride Carbon Dioxide BUN Creatinine Glucose POC Glucose 114 H 119 H Lactic Acid Calcium Magnesium Iron TIBC Ferritin AST ALT Lactate Dehydrogenase Troponin T C-Reactive Protein Total Protein Albumin Prealbumin Cholesterol LDL Cholesterol Direct HDL Cholesterol Urine WBC (Auto) Vancomycin Trough Coronavirus (PCR) Crossmatch 07/16/19 07/16/19 07/16/19 04:41 04:41 12:09 WBC 19.6 H RBC 2.81 L Hgb 7.7 L Hct 24.0 L MCV MCH 27 L MCHC RDW 19.4 H Plt Count 514 H Lymph % (Auto) 6.7 L [place] % (Auto) Lymph # [place] # 1.0 H Baso # Seg Neutrophils % 87.0 H Seg Neuts % (Manual) Lymphocytes % (Manual) Monocytes % (Manual) Nucleated RBC % Seg Neutrophils # 17.0 H Seg Neutrophils # Man Lymphocytes # (Manual) Monocytes # (Manual) Basophils # (Manual) PT INR D-Dimer ABG pH ABG pO2 ABG HCO3 ABG O2 Saturation ABG Base Excess ABG Hemoglobin Oxyhemoglobin Sodium Potassium 5.9 H Chloride Carbon Dioxide 21 L BUN 73 H Creatinine 2.0 H Glucose POC Glucose 141 H Lactic Acid Calcium Magnesium Iron TIBC Ferritin AST ALT Lactate Dehydrogenase Troponin T C-Reactive Protein Total Protein Albumin Prealbumin Cholesterol LDL Cholesterol Direct HDL Cholesterol Urine WBC (Auto) Vancomycin Trough Coronavirus (PCR) Crossmatch 07/16/19 07/16/19 07/17/19 16:19 17:45 00:16 WBC RBC Hgb Hct MCV MCH MCHC RDW Plt Count Lymph % (Auto) [place] % (Auto) Lymph # [place] # Baso # Seg Neutrophils % Seg Neuts % (Manual) Lymphocytes % (Manual) Monocytes % (Manual) Nucleated RBC % Seg Neutrophils # Seg Neutrophils # Man Lymphocytes # (Manual) Monocytes # (Manual) Basophils # (Manual) PT INR D-Dimer ABG pH ABG pO2 ABG HCO3 ABG O2 Saturation ABG Base Excess ABG Hemoglobin Oxyhemoglobin Sodium Potassium 5.1 H Chloride Carbon Dioxide 20 L BUN 72 H Creatinine 1.7 H Glucose 128 H POC Glucose 181 H 164 H Lactic Acid Calcium Magnesium Iron TIBC Ferritin AST ALT Lactate Dehydrogenase Troponin T C-Reactive Protein Total Protein Albumin Prealbumin Cholesterol LDL Cholesterol Direct HDL Cholesterol Urine WBC (Auto) Vancomycin Trough Coronavirus (PCR) Crossmatch 07/17/19 07/17/19 07/17/19 04:20 04:39 04:39 WBC 16.1 H RBC 2.92 L Hgb 8.0 L Hct 25.5 L MCV MCH MCHC 31 L RDW 19.7 H Plt Count 564 H Lymph % (Auto) 3.6 L [place] % (Auto) 7.4 H Lymph # 0.6 L [place] # 1.2 H Baso # Seg Neutrophils % 87.5 H Seg Neuts % (Manual) Lymphocytes % (Manual) Monocytes % (Manual) Nucleated RBC % Seg Neutrophils # 14.1 H Seg Neutrophils # Man Lymphocytes # (Manual) Monocytes # (Manual) Basophils # (Manual) PT INR D-Dimer ABG pH 7.231 L ABG pO2 95.3 H ABG HCO3 ABG O2 Saturation ABG Base Excess -5.0 L ABG Hemoglobin 7.9 L Oxyhemoglobin 94.8 L Sodium Potassium Chloride 107.8 H Carbon Dioxide 21 L BUN 68 H Creatinine Glucose POC Glucose Lactic Acid Calcium Magnesium Iron TIBC Ferritin AST ALT Lactate Dehydrogenase Troponin T C-Reactive Protein Total Protein Albumin Prealbumin Cholesterol LDL Cholesterol Direct HDL Cholesterol Urine WBC (Auto) Vancomycin Trough Coronavirus (PCR) Crossmatch 07/17/19 07/17/19 07/17/19 05:28 12:11 18:48 WBC RBC Hgb Hct MCV MCH MCHC RDW Plt Count Lymph % (Auto) [place] % (Auto) Lymph # [place] # Baso # Seg Neutrophils % Seg Neuts % (Manual) Lymphocytes % (Manual) Monocytes % (Manual) Nucleated RBC % Seg Neutrophils # Seg Neutrophils # Man Lymphocytes # (Manual) Monocytes # (Manual) Basophils # (Manual) PT INR D-Dimer ABG pH ABG pO2 ABG HCO3 ABG O2 Saturation ABG Base Excess ABG Hemoglobin Oxyhemoglobin Sodium Potassium Chloride Carbon Dioxide BUN Creatinine Glucose POC Glucose 121 H 125 H 174 H Lactic Acid Calcium Magnesium Iron TIBC Ferritin AST ALT Lactate Dehydrogenase Troponin T C-Reactive Protein Total Protein Albumin Prealbumin Cholesterol LDL Cholesterol Direct HDL Cholesterol Urine WBC (Auto) Vancomycin Trough Coronavirus (PCR) Crossmatch 07/17/19 07/17/19 07/18/19 19:55 23:57 02:30 WBC RBC Hgb Hct MCV MCH MCHC RDW Plt Count Lymph % (Auto) [place] % (Auto) Lymph # [place] # Baso # Seg Neutrophils % Seg Neuts % (Manual) Lymphocytes % (Manual) Monocytes % (Manual) Nucleated RBC % Seg Neutrophils # Seg Neutrophils # Man Lymphocytes # (Manual) Monocytes # (Manual) Basophils # (Manual) PT INR D-Dimer ABG pH 7.344 L 7.294 L ABG pO2 78.5 L 119.2 H ABG HCO3 ABG O2 Saturation ABG Base Excess -3.3 L -2.6 L ABG Hemoglobin 8.6 L 8.1 L Oxyhemoglobin 94.8 L Sodium Potassium Chloride Carbon Dioxide BUN Creatinine Glucose POC Glucose 148 H Lactic Acid Calcium Magnesium Iron TIBC Ferritin AST ALT Lactate Dehydrogenase Troponin T C-Reactive Protein Total Protein Albumin Prealbumin Cholesterol LDL Cholesterol Direct HDL Cholesterol Urine WBC (Auto) Vancomycin Trough Coronavirus (PCR) Crossmatch 07/18/19 07/18/19 07/18/19 04:49 05:22 05:22 WBC 15.9 H RBC 3.00 L Hgb 8.1 L Hct 26.0 L MCV MCH 27 L MCHC 31 L RDW 19.4 H Plt Count 733 H Lymph % (Auto) 6.3 L [place] % (Auto) 7.4 H Lymph # 1.0 L [place] # 1.2 H Baso # 0.2 H Seg Neutrophils % 83.8 H Seg Neuts % (Manual) Lymphocytes % (Manual) Monocytes % (Manual) Nucleated RBC % Seg Neutrophils # 13.3 H Seg Neutrophils # Man Lymphocytes # (Manual) Monocytes # (Manual) Basophils # (Manual) PT INR D-Dimer ABG pH ABG pO2 ABG HCO3 ABG O2 Saturation ABG Base Excess ABG Hemoglobin Oxyhemoglobin Sodium Potassium Chloride 110.6 H Carbon Dioxide BUN 61 H Creatinine Glucose 109 H POC Glucose 116 H Lactic Acid Calcium Magnesium Iron TIBC Ferritin AST ALT Lactate Dehydrogenase Troponin T C-Reactive Protein Total Protein Albumin Prealbumin Cholesterol LDL Cholesterol Direct HDL Cholesterol Urine WBC (Auto) Vancomycin Trough Coronavirus (PCR) Crossmatch 07/18/19 07/18/19 07/18/19 12:23 18:06 22:20 WBC RBC Hgb Hct MCV MCH MCHC RDW Plt Count Lymph % (Auto) [place] % (Auto) Lymph # [place] # Baso # Seg Neutrophils % Seg Neuts % (Manual) Lymphocytes % (Manual) Monocytes % (Manual) Nucleated RBC % Seg Neutrophils # Seg Neutrophils # Man Lymphocytes # (Manual) Monocytes # (Manual) Basophils # (Manual) PT INR D-Dimer ABG pH 7.338 L ABG pO2 135.1 H ABG HCO3 ABG O2 Saturation ABG Base Excess ABG Hemoglobin 9.2 L Oxyhemoglobin Sodium Potassium Chloride Carbon Dioxide BUN Creatinine Glucose POC Glucose 114 H 113 H Lactic Acid Calcium Magnesium Iron TIBC Ferritin AST ALT Lactate Dehydrogenase Troponin T C-Reactive Protein Total Protein Albumin Prealbumin Cholesterol LDL Cholesterol Direct HDL Cholesterol Urine WBC (Auto) Vancomycin Trough Coronavirus (PCR) Crossmatch 07/18/19 07/19/19 07/19/19 23:33 03:45 05:18 WBC RBC Hgb Hct MCV MCH MCHC RDW Plt Count Lymph % (Auto) [place] % (Auto) Lymph # [place] # Baso # Seg Neutrophils % Seg Neuts % (Manual) Lymphocytes % (Manual) Monocytes % (Manual) Nucleated RBC % Seg Neutrophils # Seg Neutrophils # Man Lymphocytes # (Manual) Monocytes # (Manual) Basophils # (Manual) PT INR D-Dimer ABG pH 7.342 L ABG pO2 95.0 H ABG HCO3 ABG O2 Saturation ABG Base Excess ABG Hemoglobin 8.5 L Oxyhemoglobin Sodium Potassium Chloride Carbon Dioxide BUN Creatinine Glucose POC Glucose 125 H 111 H Lactic Acid Calcium Magnesium Iron TIBC Ferritin AST ALT Lactate Dehydrogenase Troponin T C-Reactive Protein Total Protein Albumin Prealbumin Cholesterol LDL Cholesterol Direct HDL Cholesterol Urine WBC (Auto) Vancomycin Trough Coronavirus (PCR) Crossmatch 07/19/19 07/19/19 07/19/19 08:45 08:45 11:47 WBC 15.9 H RBC 3.31 L Hgb 9.1 L Hct 28.4 L MCV MCH 27 L MCHC RDW 19.1 H Plt Count 858 H Lymph % (Auto) 4.9 L [place] % (Auto) 8.1 H Lymph # 0.8 L [place] # 1.3 H Baso # Seg Neutrophils % 85.5 H Seg Neuts % (Manual) Lymphocytes % (Manual) Monocytes % (Manual) Nucleated RBC % Seg Neutrophils # 13.6 H Seg Neutrophils # Man Lymphocytes # (Manual) Monocytes # (Manual) Basophils # (Manual) PT INR D-Dimer ABG pH ABG pO2 ABG HCO3 ABG O2 Saturation ABG Base Excess ABG Hemoglobin Oxyhemoglobin Sodium Potassium Chloride 111.6 H Carbon Dioxide BUN 50 H Creatinine 0.7 L Glucose 118 H POC Glucose 114 H Lactic Acid Calcium Magnesium Iron TIBC Ferritin AST ALT Lactate Dehydrogenase Troponin T C-Reactive Protein Total Protein Albumin Prealbumin Cholesterol LDL Cholesterol Direct HDL Cholesterol Urine WBC (Auto) Vancomycin Trough Coronavirus (PCR) Crossmatch 07/19/19 07/19/19 07/20/19 18:25 23:44 04:39 WBC RBC Hgb Hct MCV MCH MCHC RDW Plt Count Lymph % (Auto) [place] % (Auto) Lymph # [place] # Baso # Seg Neutrophils % Seg Neuts % (Manual) Lymphocytes % (Manual) Monocytes % (Manual) Nucleated RBC % Seg Neutrophils # Seg Neutrophils # Man Lymphocytes # (Manual) Monocytes # (Manual) Basophils # (Manual) PT INR D-Dimer ABG pH ABG pO2 ABG HCO3 ABG O2 Saturation ABG Base Excess ABG Hemoglobin Oxyhemoglobin Sodium Potassium Chloride 110.3 H Carbon Dioxide BUN 44 H Creatinine 0.6 L Glucose 120 H POC Glucose 115 H 117 H Lactic Acid Calcium Magnesium Iron TIBC Ferritin AST ALT Lactate Dehydrogenase Troponin T C-Reactive Protein Total Protein Albumin Prealbumin Cholesterol LDL Cholesterol Direct HDL Cholesterol Urine WBC (Auto) Vancomycin Trough Coronavirus (PCR) Crossmatch 07/20/19 07/21/19 07/21/19 05:30 11:59 17:40 WBC RBC Hgb Hct MCV MCH MCHC RDW Plt Count Lymph % (Auto) [place] % (Auto) Lymph # [place] # Baso # Seg Neutrophils % Seg Neuts % (Manual) Lymphocytes % (Manual) Monocytes % (Manual) Nucleated RBC % Seg Neutrophils # Seg Neutrophils # Man Lymphocytes # (Manual) Monocytes # (Manual) Basophils # (Manual) PT INR D-Dimer ABG pH ABG pO2 ABG HCO3 ABG O2 Saturation ABG Base Excess ABG Hemoglobin Oxyhemoglobin Sodium Potassium Chloride Carbon Dioxide BUN Creatinine Glucose POC Glucose 131 H 122 H 125 H Lactic Acid Calcium Magnesium Iron TIBC Ferritin AST ALT Lactate Dehydrogenase Troponin T C-Reactive Protein Total Protein Albumin Prealbumin Cholesterol LDL Cholesterol Direct HDL Cholesterol Urine WBC (Auto) Vancomycin Trough Coronavirus (PCR) Crossmatch 07/22/19 07/22/19 07/22/19 05:38 05:38 12:29 WBC 12.6 H RBC 3.19 L Hgb 8.9 L Hct 27.5 L MCV MCH MCHC RDW 18.9 H Plt Count 1101 H* Lymph % (Auto) [place] % (Auto) 12.2 H Lymph # [place] # 1.5 H Baso # Seg Neutrophils % 72.8 H Seg Neuts % (Manual) 76.0 H Lymphocytes % (Manual) 7.0 L Monocytes % (Manual) 14.0 H Nucleated RBC % 1.0 H Seg Neutrophils # 9.2 H Seg Neutrophils # Man 9.6 H Lymphocytes # (Manual) 0.9 L Monocytes # (Manual) 1.8 H Basophils # (Manual) PT INR D-Dimer ABG pH ABG pO2 ABG HCO3 ABG O2 Saturation ABG Base Excess ABG Hemoglobin Oxyhemoglobin Sodium Potassium 3.4 L Chloride Carbon Dioxide BUN 29 H Creatinine 0.5 L Glucose POC Glucose 116 H Lactic Acid Calcium Magnesium Iron TIBC Ferritin AST ALT Lactate Dehydrogenase Troponin T C-Reactive Protein Total Protein Albumin Prealbumin Cholesterol LDL Cholesterol Direct HDL Cholesterol Urine WBC (Auto) Vancomycin Trough Coronavirus (PCR) Crossmatch 07/22/19 07/22/19 07/23/19 18:20 23:51 04:52 WBC RBC Hgb Hct MCV MCH MCHC RDW Plt Count Lymph % (Auto) [place] % (Auto) Lymph # [place] # Baso # Seg Neutrophils % Seg Neuts % (Manual) Lymphocytes % (Manual) Monocytes % (Manual) Nucleated RBC % Seg Neutrophils # Seg Neutrophils # Man Lymphocytes # (Manual) Monocytes # (Manual) Basophils # (Manual) PT INR D-Dimer ABG pH ABG pO2 ABG HCO3 ABG O2 Saturation ABG Base Excess ABG Hemoglobin Oxyhemoglobin Sodium Potassium Chloride Carbon Dioxide BUN 24 H Creatinine 0.4 L Glucose POC Glucose 107 H 110 H Lactic Acid Calcium Magnesium Iron TIBC Ferritin AST ALT Lactate Dehydrogenase Troponin T C-Reactive Protein Total Protein Albumin Prealbumin Cholesterol LDL Cholesterol Direct HDL Cholesterol Urine WBC (Auto) Vancomycin Trough Coronavirus (PCR) Crossmatch 07/23/19 07/23/19 07/24/19 06:00 23:15 04:40 WBC RBC Hgb Hct MCV MCH MCHC RDW Plt Count Lymph % (Auto) [place] % (Auto) Lymph # [place] # Baso # Seg Neutrophils % Seg Neuts % (Manual) Lymphocytes % (Manual) Monocytes % (Manual) Nucleated RBC % Seg Neutrophils # Seg Neutrophils # Man Lymphocytes # (Manual) Monocytes # (Manual) Basophils # (Manual) PT INR D-Dimer ABG pH ABG pO2 73.5 L ABG HCO3 27.0 H 28.5 H ABG O2 Saturation 94.5 L ABG Base Excess ABG Hemoglobin 9.4 L 8.9 L Oxyhemoglobin 94.0 L 92.7 L Sodium Potassium Chloride Carbon Dioxide BUN Creatinine Glucose POC Glucose 117 H Lactic Acid Calcium Magnesium Iron TIBC Ferritin AST ALT Lactate Dehydrogenase Troponin T C-Reactive Protein Total Protein Albumin Prealbumin Cholesterol LDL Cholesterol Direct HDL Cholesterol Urine WBC (Auto) Vancomycin Trough Coronavirus (PCR) Crossmatch 07/24/19 07/24/19 07/25/19 05:25 12:06 00:16 WBC RBC Hgb Hct MCV MCH MCHC RDW Plt Count Lymph % (Auto) [place] % (Auto) Lymph # [place] # Baso # Seg Neutrophils % Seg Neuts % (Manual) Lymphocytes % (Manual) Monocytes % (Manual) Nucleated RBC % Seg Neutrophils # Seg Neutrophils # Man Lymphocytes # (Manual) Monocytes # (Manual) Basophils # (Manual) PT INR D-Dimer ABG pH ABG pO2 ABG HCO3 ABG O2 Saturation ABG Base Excess ABG Hemoglobin Oxyhemoglobin Sodium Potassium Chloride Carbon Dioxide BUN Creatinine Glucose POC Glucose 114 H 108 H 106 H Lactic Acid Calcium Magnesium Iron TIBC Ferritin AST ALT Lactate Dehydrogenase Troponin T C-Reactive Protein Total Protein Albumin Prealbumin Cholesterol LDL Cholesterol Direct HDL Cholesterol Urine WBC (Auto) Vancomycin Trough Coronavirus (PCR) Crossmatch 07/25/19 07/25/19 07/25/19 05:14 05:14 05:17 WBC 17.8 H RBC 3.32 L Hgb 9.2 L Hct 28.6 L MCV MCH MCHC RDW 19.9 H Plt Count 994 H Lymph % (Auto) [place] % (Auto) Lymph # [place] # Baso # Seg Neutrophils % Seg Neuts % (Manual) 82.0 H Lymphocytes % (Manual) 5.0 L Monocytes % (Manual) Nucleated RBC % Seg Neutrophils # Seg Neutrophils # Man 14.6 H Lymphocytes # (Manual) 0.9 L Monocytes # (Manual) 1.2 H Basophils # (Manual) PT INR D-Dimer ABG pH ABG pO2 ABG HCO3 ABG O2 Saturation ABG Base Excess ABG Hemoglobin Oxyhemoglobin Sodium Potassium Chloride Carbon Dioxide BUN Creatinine 0.4 L Glucose 110 H POC Glucose 107 H Lactic Acid Calcium Magnesium Iron TIBC Ferritin AST ALT Lactate Dehydrogenase Troponin T C-Reactive Protein Total Protein Albumin Prealbumin Cholesterol LDL Cholesterol Direct HDL Cholesterol Urine WBC (Auto) Vancomycin Trough Coronavirus (PCR) Crossmatch 07/25/19 07/25/19 07/26/19 11:55 23:49 06:01 WBC RBC Hgb Hct MCV MCH MCHC RDW Plt Count Lymph % (Auto) [place] % (Auto) Lymph # [place] # Baso # Seg Neutrophils % Seg Neuts % (Manual) Lymphocytes % (Manual) Monocytes % (Manual) Nucleated RBC % Seg Neutrophils # Seg Neutrophils # Man Lymphocytes # (Manual) Monocytes # (Manual) Basophils # (Manual) PT INR D-Dimer ABG pH ABG pO2 ABG HCO3 ABG O2 Saturation ABG Base Excess ABG Hemoglobin Oxyhemoglobin Sodium Potassium Chloride Carbon Dioxide BUN Creatinine Glucose POC Glucose 123 H 118 H 106 H Lactic Acid Calcium Magnesium Iron TIBC Ferritin AST ALT Lactate Dehydrogenase Troponin T C-Reactive Protein Total Protein Albumin Prealbumin Cholesterol LDL Cholesterol Direct HDL Cholesterol Urine WBC (Auto) Vancomycin Trough Coronavirus (PCR) Crossmatch 07/26/19 07/27/19 07/27/19 17:02 00:28 05:16 WBC RBC Hgb Hct MCV MCH MCHC RDW Plt Count Lymph % (Auto) [place] % (Auto) Lymph # [place] # Baso # Seg Neutrophils % Seg Neuts % (Manual) Lymphocytes % (Manual) Monocytes % (Manual) Nucleated RBC % Seg Neutrophils # Seg Neutrophils # Man Lymphocytes # (Manual) Monocytes # (Manual) Basophils # (Manual) PT INR D-Dimer ABG pH ABG pO2 63.4 L ABG HCO3 31.3 H ABG O2 Saturation 92.7 L ABG Base Excess 6.3 H ABG Hemoglobin 7.6 L Oxyhemoglobin 90.9 L Sodium Potassium Chloride Carbon Dioxide BUN Creatinine Glucose POC Glucose 116 H 158 H Lactic Acid Calcium Magnesium Iron TIBC Ferritin AST ALT Lactate Dehydrogenase Troponin T C-Reactive Protein Total Protein Albumin Prealbumin Cholesterol LDL Cholesterol Direct HDL Cholesterol Urine WBC (Auto) Vancomycin Trough Coronavirus (PCR) Crossmatch 07/28/19 07/28/19 07/28/19 10:13 10:13 23:54 WBC 18.5 H RBC 3.20 L Hgb 8.8 L Hct 26.8 L MCV MCH 27 L MCHC RDW 19.9 H Plt Count 730 H Lymph % (Auto) [place] % (Auto) Lymph # [place] # Baso # Seg Neutrophils % Seg Neuts % (Manual) Lymphocytes % (Manual) Monocytes % (Manual) Nucleated RBC % Seg Neutrophils # Seg Neutrophils # Man Lymphocytes # (Manual) Monocytes # (Manual) Basophils # (Manual) PT INR D-Dimer ABG pH ABG pO2 ABG HCO3 ABG O2 Saturation ABG Base Excess ABG Hemoglobin Oxyhemoglobin Sodium Potassium 3.2 L Chloride 97.5 L Carbon Dioxide 31 H BUN Creatinine 0.5 L Glucose POC Glucose 120 H Lactic Acid Calcium Magnesium Iron TIBC Ferritin AST ALT Lactate Dehydrogenase Troponin T C-Reactive Protein Total Protein Albumin Prealbumin Cholesterol LDL Cholesterol Direct HDL Cholesterol Urine WBC (Auto) Vancomycin Trough Coronavirus (PCR) Crossmatch 07/29/19 07/29/19 07/29/19 11:57 17:43 Unknown WBC RBC Hgb Hct MCV MCH MCHC RDW Plt Count Lymph % (Auto) [place] % (Auto) Lymph # [place] # Baso # Seg Neutrophils % Seg Neuts % (Manual) Lymphocytes % (Manual) Monocytes % (Manual) Nucleated RBC % Seg Neutrophils # Seg Neutrophils # Man Lymphocytes # (Manual) Monocytes # (Manual) Basophils # (Manual) PT INR D-Dimer ABG pH ABG pO2 ABG HCO3 ABG O2 Saturation ABG Base Excess ABG Hemoglobin Oxyhemoglobin Sodium Potassium Chloride Carbon Dioxide BUN Creatinine Glucose POC Glucose 112 H Lactic Acid Calcium Magnesium Iron TIBC Ferritin AST ALT Lactate Dehydrogenase Troponin T C-Reactive Protein Total Protein Albumin Prealbumin Cholesterol LDL Cholesterol Direct HDL Cholesterol Urine WBC (Auto) 63.0 H Vancomycin Trough Coronavirus (PCR) Positive A Crossmatch 07/30/19 07/30/19 07/30/19 00:20 04:35 04:35 WBC 24.3 H RBC 3.12 L Hgb 8.5 L Hct 26.3 L MCV MCH 27 L MCHC RDW 20.2 H Plt Count 550 H Lymph % (Auto) [place] % (Auto) Lymph # [place] # Baso # Seg Neutrophils % Seg Neuts % (Manual) Lymphocytes % (Manual) Monocytes % (Manual) Nucleated RBC % Seg Neutrophils # Seg Neutrophils # Man Lymphocytes # (Manual) Monocytes # (Manual) Basophils # (Manual) PT INR D-Dimer ABG pH ABG pO2 ABG HCO3 ABG O2 Saturation ABG Base Excess ABG Hemoglobin Oxyhemoglobin Sodium Potassium 3.0 L Chloride 96.3 L Carbon Dioxide 32 H BUN Creatinine 0.5 L Glucose POC Glucose 106 H Lactic Acid Calcium Magnesium Iron TIBC Ferritin AST ALT Lactate Dehydrogenase Troponin T C-Reactive Protein Total Protein Albumin Prealbumin Cholesterol LDL Cholesterol Direct HDL Cholesterol Urine WBC (Auto) Vancomycin Trough Coronavirus (PCR) Crossmatch 07/31/19 07/31/19 07/31/19 04:42 04:42 11:33 WBC 23.8 H RBC 3.10 L Hgb 8.4 L Hct 26.1 L MCV MCH 27 L MCHC RDW 19.6 H Plt Count 561 H Lymph % (Auto) [place] % (Auto) Lymph # [place] # Baso # Seg Neutrophils % Seg Neuts % (Manual) Lymphocytes % (Manual) Monocytes % (Manual) Nucleated RBC % Seg Neutrophils # Seg Neutrophils # Man Lymphocytes # (Manual) Monocytes # (Manual) Basophils # (Manual) PT INR D-Dimer ABG pH ABG pO2 ABG HCO3 ABG O2 Saturation ABG Base Excess ABG Hemoglobin Oxyhemoglobin Sodium 135 L Potassium Chloride 93.9 L Carbon Dioxide 32 H BUN Creatinine 0.4 L Glucose POC Glucose 116 H Lactic Acid Calcium Magnesium Iron TIBC Ferritin AST ALT Lactate Dehydrogenase Troponin T C-Reactive Protein Total Protein Albumin 1.6 L Prealbumin 0.037 L Cholesterol LDL Cholesterol Direct HDL Cholesterol Urine WBC (Auto) Vancomycin Trough Coronavirus (PCR) Crossmatch 07/31/19 08/01/19 08/01/19 23:33 04:57 04:57 WBC 26.7 H RBC 3.12 L Hgb 8.5 L Hct 26.3 L MCV MCH 27 L MCHC RDW 19.2 H Plt Count 602 H Lymph % (Auto) [place] % (Auto) Lymph # [place] # Baso # Seg Neutrophils % Seg Neuts % (Manual) 93.0 H Lymphocytes % (Manual) 2.0 L Monocytes % (Manual) Nucleated RBC % Seg Neutrophils # Seg Neutrophils # Man 24.8 H Lymphocytes # (Manual) 0.5 L Monocytes # (Manual) 1.1 H Basophils # (Manual) PT INR D-Dimer ABG pH ABG pO2 ABG HCO3 ABG O2 Saturation ABG Base Excess ABG Hemoglobin Oxyhemoglobin Sodium 132 L Potassium Chloride 93.8 L Carbon Dioxide 31 H BUN Creatinine 0.3 L Glucose POC Glucose 148 H Lactic Acid Calcium 8.1 L Magnesium Iron TIBC Ferritin AST ALT Lactate Dehydrogenase Troponin T C-Reactive Protein Total Protein Albumin Prealbumin Cholesterol LDL Cholesterol Direct HDL Cholesterol Urine WBC (Auto) Vancomycin Trough Coronavirus (PCR) Crossmatch 08/01/19 08/02/19 08/02/19 12:16 00:22 05:24 WBC RBC Hgb Hct MCV MCH MCHC RDW Plt Count Lymph % (Auto) [place] % (Auto) Lymph # [place] # Baso # Seg Neutrophils % Seg Neuts % (Manual) Lymphocytes % (Manual) Monocytes % (Manual) Nucleated RBC % Seg Neutrophils # Seg Neutrophils # Man Lymphocytes # (Manual) Monocytes # (Manual) Basophils # (Manual) PT INR D-Dimer ABG pH ABG pO2 ABG HCO3 ABG O2 Saturation ABG Base Excess ABG Hemoglobin Oxyhemoglobin Sodium Potassium Chloride Carbon Dioxide BUN Creatinine Glucose POC Glucose 120 H 119 H 113 H Lactic Acid Calcium Magnesium Iron TIBC Ferritin AST ALT Lactate Dehydrogenase Troponin T C-Reactive Protein Total Protein Albumin Prealbumin Cholesterol LDL Cholesterol Direct HDL Cholesterol Urine WBC (Auto) Vancomycin Trough Coronavirus (PCR) Crossmatch 08/03/19 08/03/19 08/03/19 05:20 12:01 23:48 WBC RBC Hgb Hct MCV MCH MCHC RDW Plt Count Lymph % (Auto) [place] % (Auto) Lymph # [place] # Baso # Seg Neutrophils % Seg Neuts % (Manual) Lymphocytes % (Manual) Monocytes % (Manual) Nucleated RBC % Seg Neutrophils # Seg Neutrophils # Man Lymphocytes # (Manual) Monocytes # (Manual) Basophils # (Manual) PT INR D-Dimer ABG pH ABG pO2 ABG HCO3 ABG O2 Saturation ABG Base Excess ABG Hemoglobin Oxyhemoglobin Sodium Potassium Chloride Carbon Dioxide BUN Creatinine Glucose POC Glucose 118 H 106 H 120 H Lactic Acid Calcium Magnesium Iron TIBC Ferritin AST ALT Lactate Dehydrogenase Troponin T C-Reactive Protein Total Protein Albumin Prealbumin Cholesterol LDL Cholesterol Direct HDL Cholesterol Urine WBC (Auto) Vancomycin Trough Coronavirus (PCR) Crossmatch 08/04/19 08/04/19 08/04/19 05:38 05:38 06:29 WBC 26.1 H RBC 2.77 L Hgb 7.5 L Hct 23.2 L MCV MCH 27 L MCHC RDW 19.2 H Plt Count 648 H Lymph % (Auto) [place] % (Auto) Lymph # [place] # Baso # Seg Neutrophils % Seg Neuts % (Manual) 90.5 H Lymphocytes % (Manual) 3.5 L Monocytes % (Manual) Nucleated RBC % Seg Neutrophils # Seg Neutrophils # Man 23.6 H Lymphocytes # (Manual) 0.9 L Monocytes # (Manual) 1.2 H Basophils # (Manual) PT INR D-Dimer ABG pH ABG pO2 ABG HCO3 ABG O2 Saturation ABG Base Excess ABG Hemoglobin Oxyhemoglobin Sodium 132 L Potassium 3.4 L D Chloride 92.7 L Carbon Dioxide 33 H BUN Creatinine 0.2 L Glucose POC Glucose 108 H Lactic Acid Calcium 8.1 L Magnesium Iron TIBC Ferritin AST ALT Lactate Dehydrogenase Troponin T C-Reactive Protein Total Protein Albumin Prealbumin Cholesterol LDL Cholesterol Direct HDL Cholesterol Urine WBC (Auto) Vancomycin Trough Coronavirus (PCR) Crossmatch 08/04/19 08/05/19 08/05/19 12:30 04:58 04:58 WBC 21.0 H RBC 2.63 L Hgb 7.2 L Hct 21.9 L MCV 83 L MCH 27 L MCHC RDW 18.9 H Plt Count 691 H Lymph % (Auto) [place] % (Auto) Lymph # [place] # Baso # Seg Neutrophils % Seg Neuts % (Manual) 86.0 H Lymphocytes % (Manual) 3.0 L Monocytes % (Manual) 10.0 H Nucleated RBC % Seg Neutrophils # Seg Neutrophils # Man 18.1 H Lymphocytes # (Manual) 0.6 L Monocytes # (Manual) 2.1 H Basophils # (Manual) PT INR D-Dimer ABG pH ABG pO2 ABG HCO3 ABG O2 Saturation ABG Base Excess ABG Hemoglobin Oxyhemoglobin Sodium 134 L Potassium 3.2 L Chloride 93.2 L Carbon Dioxide 34 H BUN 8 L Creatinine 0.3 L Glucose POC Glucose 138 H Lactic Acid Calcium 8.1 L Magnesium Iron TIBC Ferritin AST ALT Lactate Dehydrogenase Troponin T C-Reactive Protein Total Protein Albumin Prealbumin Cholesterol LDL Cholesterol Direct HDL Cholesterol Urine WBC (Auto) Vancomycin Trough Coronavirus (PCR) Crossmatch 08/05/19 08/05/19 08/05/19 11:53 17:57 23:58 WBC RBC Hgb Hct MCV MCH MCHC RDW Plt Count Lymph % (Auto) [place] % (Auto) Lymph # [place] # Baso # Seg Neutrophils % Seg Neuts % (Manual) Lymphocytes % (Manual) Monocytes % (Manual) Nucleated RBC % Seg Neutrophils # Seg Neutrophils # Man Lymphocytes # (Manual) Monocytes # (Manual) Basophils # (Manual) PT INR D-Dimer ABG pH ABG pO2 ABG HCO3 ABG O2 Saturation ABG Base Excess ABG Hemoglobin Oxyhemoglobin Sodium Potassium Chloride Carbon Dioxide BUN Creatinine Glucose POC Glucose 106 H 111 H 116 H Lactic Acid Calcium Magnesium Iron TIBC Ferritin AST ALT Lactate Dehydrogenase Troponin T C-Reactive Protein Total Protein Albumin Prealbumin Cholesterol LDL Cholesterol Direct HDL Cholesterol Urine WBC (Auto) Vancomycin Trough Coronavirus (PCR) Crossmatch 08/06/19 08/06/19 08/06/19 04:11 04:11 06:04 WBC 20.8 H RBC 2.80 L Hgb 7.6 L Hct 23.5 L MCV MCH 27 L MCHC RDW 19.0 H Plt Count 723 H Lymph % (Auto) [place] % (Auto) Lymph # [place] # Baso # Seg Neutrophils % Seg Neuts % (Manual) 88.0 H Lymphocytes % (Manual) 3.0 L Monocytes % (Manual) Nucleated RBC % Seg Neutrophils # Seg Neutrophils # Man 18.3 H Lymphocytes # (Manual) 0.6 L Monocytes # (Manual) Basophils # (Manual) 0.2 H PT INR D-Dimer ABG pH ABG pO2 ABG HCO3 ABG O2 Saturation ABG Base Excess ABG Hemoglobin Oxyhemoglobin Sodium Potassium 3.4 L Chloride 95.2 L Carbon Dioxide 32 H BUN Creatinine 0.3 L Glucose POC Glucose 108 H Lactic Acid Calcium 8.2 L Magnesium Iron TIBC Ferritin AST ALT Lactate Dehydrogenase Troponin T C-Reactive Protein Total Protein Albumin Prealbumin Cholesterol LDL Cholesterol Direct HDL Cholesterol Urine WBC (Auto) Vancomycin Trough Coronavirus (PCR) Crossmatch 08/06/19 08/06/19 08/07/19 12:23 17:13 00:21 WBC RBC Hgb Hct MCV MCH MCHC RDW Plt Count Lymph % (Auto) [place] % (Auto) Lymph # [place] # Baso # Seg Neutrophils % Seg Neuts % (Manual) Lymphocytes % (Manual) Monocytes % (Manual) Nucleated RBC % Seg Neutrophils # Seg Neutrophils # Man Lymphocytes # (Manual) Monocytes # (Manual) Basophils # (Manual) PT INR D-Dimer ABG pH ABG pO2 ABG HCO3 ABG O2 Saturation ABG Base Excess ABG Hemoglobin Oxyhemoglobin Sodium Potassium Chloride Carbon Dioxide BUN Creatinine Glucose POC Glucose 112 H 132 H 147 H Lactic Acid Calcium Magnesium Iron TIBC Ferritin AST ALT Lactate Dehydrogenase Troponin T C-Reactive Protein Total Protein Albumin Prealbumin Cholesterol LDL Cholesterol Direct HDL Cholesterol Urine WBC (Auto) Vancomycin Trough Coronavirus (PCR) Crossmatch 08/07/19 08/07/19 08/07/19 05:16 05:23 05:23 WBC 30.3 H RBC 2.69 L Hgb 7.1 L Hct 22.2 L MCV 83 L MCH 27 L MCHC RDW 19.1 H Plt Count 650 H Lymph % (Auto) [place] % (Auto) Lymph # [place] # Baso # Seg Neutrophils % Seg Neuts % (Manual) 88.0 H Lymphocytes % (Manual) 5.0 L Monocytes % (Manual) Nucleated RBC % Seg Neutrophils # Seg Neutrophils # Man 26.7 H Lymphocytes # (Manual) Monocytes # (Manual) 2.1 H Basophils # (Manual) PT INR D-Dimer ABG pH ABG pO2 ABG HCO3 ABG O2 Saturation ABG Base Excess ABG Hemoglobin Oxyhemoglobin Sodium 135 L Potassium 3.4 L Chloride 95.4 L Carbon Dioxide 32 H BUN Creatinine 0.4 L Glucose 120 H POC Glucose 120 H Lactic Acid Calcium 7.7 L Magnesium Iron TIBC Ferritin AST ALT Lactate Dehydrogenase Troponin T C-Reactive Protein Total Protein Albumin Prealbumin Cholesterol LDL Cholesterol Direct HDL Cholesterol Urine WBC (Auto) Vancomycin Trough Coronavirus (PCR) Crossmatch 08/07/19 08/07/19 08/07/19 10:24 10:24 11:10 WBC RBC Hgb Hct MCV MCH MCHC RDW Plt Count Lymph % (Auto) [place] % (Auto) Lymph # [place] # Baso # Seg Neutrophils % Seg Neuts % (Manual) Lymphocytes % (Manual) Monocytes % (Manual) Nucleated RBC % Seg Neutrophils # Seg Neutrophils # Man Lymphocytes # (Manual) Monocytes # (Manual) Basophils # (Manual) PT INR D-Dimer 1808.06 H ABG pH ABG pO2 73.3 L ABG HCO3 33.9 H ABG O2 Saturation ABG Base Excess 9.0 H ABG Hemoglobin 6.3 L Oxyhemoglobin 94.3 L Sodium Potassium Chloride Carbon Dioxide BUN Creatinine Glucose POC Glucose Lactic Acid Calcium Magnesium Iron TIBC Ferritin AST ALT Lactate Dehydrogenase Troponin T C-Reactive Protein 11.10 H Total Protein Albumin Prealbumin Cholesterol LDL Cholesterol Direct HDL Cholesterol Urine WBC (Auto) Vancomycin Trough Coronavirus (PCR) Crossmatch 08/07/19 08/08/19 08/08/19 12:01 04:41 04:41 WBC 22.1 H RBC 2.82 L Hgb 7.7 L Hct 23.6 L MCV MCH 27 L MCHC RDW 19.1 H Plt Count 722 H Lymph % (Auto) [place] % (Auto) Lymph # [place] # Baso # Seg Neutrophils % Seg Neuts % (Manual) 90.0 H Lymphocytes % (Manual) 3.0 L Monocytes % (Manual) Nucleated RBC % Seg Neutrophils # Seg Neutrophils # Man 19.9 H Lymphocytes # (Manual) 0.7 L Monocytes # (Manual) 1.3 H Basophils # (Manual) PT INR D-Dimer ABG pH ABG pO2 ABG HCO3 ABG O2 Saturation ABG Base Excess ABG Hemoglobin Oxyhemoglobin Sodium 136 L Potassium Chloride 97.8 L Carbon Dioxide BUN Creatinine 0.3 L Glucose 105 H POC Glucose 130 H Lactic Acid Calcium 7.8 L Magnesium Iron TIBC Ferritin AST ALT Lactate Dehydrogenase Troponin T C-Reactive Protein Total Protein Albumin Prealbumin Cholesterol LDL Cholesterol Direct HDL Cholesterol Urine WBC (Auto) Vancomycin Trough Coronavirus (PCR) Crossmatch 08/08/19 11:46 WBC RBC Hgb Hct MCV MCH MCHC RDW Plt Count Lymph % (Auto) [place] % (Auto) Lymph # [place] # Baso # Seg Neutrophils % Seg Neuts % (Manual) Lymphocytes % (Manual) Monocytes % (Manual) Nucleated RBC % Seg Neutrophils # Seg Neutrophils # Man Lymphocytes # (Manual) Monocytes # (Manual) Basophils # (Manual) PT INR D-Dimer ABG pH ABG pO2 ABG HCO3 ABG O2 Saturation ABG Base Excess ABG Hemoglobin Oxyhemoglobin Sodium Potassium Chloride Carbon Dioxide BUN Creatinine Glucose POC Glucose 117 H Lactic Acid Calcium Magnesium Iron TIBC Ferritin AST ALT Lactate Dehydrogenase Troponin T C-Reactive Protein Total Protein Albumin Prealbumin Cholesterol LDL Cholesterol Direct HDL Cholesterol Urine WBC (Auto) Vancomycin Trough Coronavirus (PCR) Crossmatch Allied health notes reviewed: RT
--- NOTE | 2019-08-08 13:12 | Progress Note ---
Assessment and Plan Cultures: 07/03/2019 urine culture: No growth 07/03/2019 Tracheal aspirate: E.coli 07/29/2019 urine culture: neg 07/30/2019 blood culture: no growth tracheal asp + Pseudomonas A/P: 69-year-old male with CVA, hypertension, dementia, schizophrenia, alcohol use disorder was admitted to the emergency room after being brought in by EMS with progressive shortness of breath and unresponsiveness. He was noted to have agonal breathing and a faint pulse requiring CPR. It seems patient was on hospice recently, prior to admission. #Shock, likely septic: shock resolved, remains off pressors. fever better and leukocytosis better ? bacterial pneumonia vs sacral decubitus infection. Very high procal=24 on 07/29 most recent 0.5 #Nonresolving pneumonia/Cavitary pneumonia: ? abscess. Sputum +Pseudomonas. CT shows RUL pneumonia with 2.4 cm cavity and LLL pneumonia with moderate left pleural effusion. #Penile/scrotal and buttocks wounds: ?cellulitis #Sacral decubitus: worsening on last exam ? necrotic. Evaluated for surgery, no indications for intervention. #UTI: per documentation initial carroll placed on 07/03, exchanged on 07/31. #Severe COVID-19 disease and pneumonia: Markers improving. Completed Plaquenil. Completed Ceftriaxone for treatment E.coli in tracheal aspirate. #Acute respiratory failure: on mechanical ventilation. #Transaminitis: Likely from COVID-19, shock #Multiple skin tears documented on admission Recs: f/u CT abd pelvis Surgical eval of sacral decubitus appreciated Obtain sacral wound cultures - pending continue zosyn IV 4.5 g IV q 6 hour - may need 3-4 weeks abx for lung abscess recheck covid test today Monitor fever f/u blood cx Continue Wound care Off loading Tracheostomy placement to be scheduled when COVID testing is negative per surgery. Repeat COVID 07/28 positive. will recheck today Will follow. Padmaja Garcia MD Infectious Diseases [facility] ([facility]) M [phone] O [phone] Subjective Date of service: 08/08/19 Principal diagnosis: Bilateral pneumonia, severe sepsis with septic shock, encephalopathy Interval history: Remains intubated, no fever for 36h, no pressors, on sedative Objective - Exam Narrative Exam: General appearance: sedated on the vent Eyes: anicteric sclerae, moist conjunctivae; no lid-lag; PERRLA HENT: Atraumatic; oropharynx ETT with thick yellow secretion Lungs: madelin rhonchi per RT CV: RRR Abdomen: Soft, non-tender Extremities: marked madelin arm edema Skin: No rash. Genital: penile/scrotal ulcer covered w dressings Psych: no agitated Neuro: sedated [place] - Constitutional Vitals: Vital Signs Temp Pulse Resp BP Pulse Ox 99.5 F 106 H 15 115/64 96 08/08/19 12:00 08/08/19 12:00 08/08/19 12:00 08/08/19 12:00 08/08/19 12:00 Temperature -Last 24 Hours Temperature 99.5 F Temperature 99.9 F Temperature 99.6 F Temperature 99.3 F Temperature 99.0 F Temperature 98.2 F - Labs CBC & Chem 7: 08/08/19 04:41 08/08/19 04:41 Labs: Abnormal lab results 08/07/19 08/08/19 08/08/19 Range/Units 12:01 04:41 04:41 WBC 22.1 H (4.5-11.0) K/mm3 RBC 2.82 L (3.65-5.03) M/mm3 Hgb 7.7 L (11.8-15.2) gm/dl Hct 23.6 L (35.5-45.6) % MCH 27 L (28-32) pg RDW 19.1 H (13.2-15.2) % Plt Count 722 H (140-440) K/mm3 Seg Neuts % (Manual) 90.0 H (40.0-70.0) % Lymphocytes % (Manual) 3.0 L (13.4-35.0) % Seg Neutrophils # Man 19.9 H (1.8-7.7) K/mm3 Lymphocytes # (Manual) 0.7 L (1.2-5.4) K/mm3 Monocytes # (Manual) 1.3 H (0.0-0.8) K/mm3 Sodium 136 L (137-145) mmol/L Chloride 97.8 L (98-107) mmol/L Creatinine 0.3 L (0.8-1.5) mg/dL Glucose 105 H (75-100) mg/dL POC Glucose 130 H (70-105) Calcium 7.8 L (8.4-10.2) mg/dL 08/08/19 Range/Units 11:46 WBC (4.5-11.0) K/mm3 RBC (3.65-5.03) M/mm3 Hgb (11.8-15.2) gm/dl Hct (35.5-45.6) % MCH (28-32) pg RDW (13.2-15.2) % Plt Count (140-440) K/mm3 Seg Neuts % (Manual) (40.0-70.0) % Lymphocytes % (Manual) (13.4-35.0) % Seg Neutrophils # Man (1.8-7.7) K/mm3 Lymphocytes # (Manual) (1.2-5.4) K/mm3 Monocytes # (Manual) (0.0-0.8) K/mm3 Sodium (137-145) mmol/L Chloride (98-107) mmol/L Creatinine (0.8-1.5) mg/dL Glucose (75-100) mg/dL POC Glucose 117 H (70-105) Calcium (8.4-10.2) mg/dL
--- NOTE | 2019-08-08 13:24 | Cat Scan Report ---
CT ABDOMEN AND PELVIS WITH CONTRAST HISTORY: MAIN: worsening fever and leukocytosis 30K pt constricted, table didn't move, late constras t inject . COMPARISON: CT abdomen/pelvis from 08/07/2016 TECHNIQUE: CT images of the abdomen and pelvis were obtained following administration of intravenous contrast. All CT scans at this location are performed using CT dose reduction for ALARA by means of automated exposure control. CONTRAST: 100 ml of intravenous contrast administered. FINDINGS: Lungs/bones: There is considerable respiratory motion artifact with patchy bibasilar airspace diseas e suggesting pneumonia and small left-sided layering pleural effusion. There are degenerative changes throughout the spine and pelvis with no acute osseous abnormality identified. There are decubitus ul cers over the sacrum and left lateral hip with bony sclerosis most notably along the sacrum and perio steal reactive change overlying the left hip. Incidental note is made of a contrast extravasation in the left mid arm extending to the region of th e antecubital fossa. This was not documented by the technologist. Abdomen/pelvis: The liver, gallbladder, spleen, pancreas, adrenals, kidneys, and proximal GI tract s how no acute abnormality for limited noncontrast technique with motion artifact. NG tube tip is in th e region of the distal stomach/proximal duodenum and can be retracted at least 5 cm. There is diffuse body wall edema. There is a moderate amount of stool throughout the distal colon leading up to the rectum. No bowel ob struction or acute inflammatory change. The urinary bladder is mostly collapsed with a Wright catheter in place. IMPRESSION: 1. Patchy bibasilar pneumonia and left-sided pleural effusion. 2. Decubitus ulcers with findings of osteomyelitis on the left greater trochanter and the sacrum. 3. Moderate distal colonic stool burden may be seen with constipation or evolving impaction. 4. Diffuse anasarca. 5. Contrast extravasation in the left arm as above. I called the technologists after the exam since t his was not documented and instructed them to follow up with the primary team. Signer Name: Mauri Godfrey MD Signed: 08/08/2019 1:20 PM Workstation Name: [id number]
--- NOTE | 2019-08-08 14:47 | Event Note ---
Date: 08/08/19 Patient's chart reviewed. No acute change in condition. Remains on mechanical ventilation. CT scan of the chest, abdomen, pelvisimages and radiology report reviewed. 1. RUL PNA with consolidation 2. 2.4 cm cavitations vs bulla in right upper lobe 3. LLL PNA with moderate left pleural eddusion 4. Decubitus ulcers with findings of osteo myelitis of the left greater trochanter and sacrum Called patient's Ana Abdullahi to discuss sacral and left ischial wound and possibly debriding the wounds. There was no answer. Will attempt again tomorrow.
[2019-08-08] MEDS: SODIUM HYPOCHLORITE, DAKIN'S 1/2 STRENGTH (0.25%) 473 ML TOPICAL SOLN TP SCH ×2 (17:00→21:14)
[2019-08-09] MEDS: PIPERACIL/TAZOBACTA 4.5/NS 100 4.5 GM/100 ML VIAL IV SCH ×4 (00:49→20:00)
[2019-08-09] MEDS: INSULIN LISPRO 100 UNIT/ML SUB-Q SCH ×4 (00:49→17:42)
--- NOTE | 2019-08-09 08:16 | Progress Note ---
Assessment and Plan Assessment and plan: --COVid positive pneumonia with severe sepsis Received Plaquenil and cefepime, monitor off antibiotics ID following --Septic shock: On Levophed Persistent hypotension, titrate to systolic blood pressure more than 100 -- Acute respiratory Failure with Hypoxia Due to bilateral PNA with COVID 19 infection. On ventilatory support, unable to wean Pulmonary critical following --COPD with exacerbation Likely due to COVID-19 pneumonia Continue scheduled nebs --Anemia, Microcytic persistent s/p total 3 unit of PRBC, today Hb today 9.1 --Pressure Ulcers: POA buttocks, right lateral foot area wound and supportive care --Hyponatremia, resolved --DM type 2: Accu-Chek SCC tube feeding, insulin as needed --h/o HTN Essential, now hypotensive On Levophed --Seizure D/o/CVA/immobility/BIpolar D/o/SCZ Seizure precautions, antiepileptic medications --Severe PCM, TF supportive care, dietary following patient is DNR- Called and verified information Very poor prognosis, Recommend hospice 07/04: COVID +ve, start on plaquinil, called no answer 07/05: transfuse one unit PRBC, Hb dropped to ~6, called and updated 07/06; H&H stable, serum chemistry improved. On mechanical ventilation with high inflammatory markers. Continue Plaquenil and empiric antibiotics. ID following, prognosis remains guarded and extremely poor. 07/07: On mechanical ventilation with high inflammatory markers. Continue Plaquenil and empiric antibiotics. ID following, prognosis remains guarded and extremely poor. 07/08: Called today and verified the CODE STATUS. Patient remains DNR. He is still intubated, with poor prognosis. Continue to follow inflammatory markers. 07/09 wean off from vent as tolerated, completed empiric antibiotic and Plaquenil 07/10 wean off from vent as tolerated. poor prognosis 07/11 hb 6.7 today, transfuse one PRBC. wean off from vent as tolerated. poor prognosis 07/12 remains critically on vent. Hb 6.9 07/13 Hb dropped to 6.6, transfuse 1 unit of PRBC, remains on vent critically ill Hypotensive, fluid bolus, if no improvement start Levophed 07/14; remains anemic with hemoglobin of 6.8, received total 3 units of PRBC Additional 1 unit of PRBC today, stool for occult blood to rule out GI causes Started back on Levophed due to hypotension 07/15; patient remains critically ill, hypotensive on Levophed 07/16: Today remains intubated on vent, persistent hypotension on Levophed 07/17; clinically no change, pressor dependent[on Levophed] DNR status 07/18: Patient remains hypotensive requiring Levophed, intubated on vent Unable to wean, critically ill. DNR 07/20/2019 Patient remains hypotensive requiring Levophed, intubated on vent. Patient currently with AC mode ventilation, rate 20, tidal volume 500, FiO2 40% and PEEP 6. Patient is a poor prognosis and apparently was on hospice recently. 07/21/2019. Patient with PEG tube that was clogged yesterday. surgery evaluated the patient and noted Very long PEG tubing with thick material inside. The ent celsa tube was stripped and a large amount of formed tube feed was expressed. The tube was then flushed with sprite and flushed easily. Tube clamped. Patient currently with AC mode ventilation, rate 20, tidal volume 500, FiO2 40% and PEEP 6. Patient is a poor prognosis and apparently was on hospice recently. 07/22/2019. Patient currently with AC mode ventilation, rate 20, tidal volume 500, FiO2 30% and PEEP 6. Patient on sedation with fentanyl drip. Continue Levophed to maintain MAP greater than 65. Patient is a poor prognosis and apparently was on hospice recently. 07/23/2019. Patient currently with AC mode ventilation, rate 20, tidal volume 500, FiO2 30% and PEEP 6. Patient on sedation with fentanyl drip. Continue Levophed to maintain MAP greater than 65. Patient is a poor prognosis and apparently was on hospice recently. 07/24/2019 Patient with Covid-19 infection with pneumonia, acute respiratory failure, intubated on ventilator. No more fever. Continue current management. 07/25/2019 Patient with Covid-19 infection with pneumonia, acute respiratory failure, intubated on ventilator. fever is now resolved. Sedated with propofol 07/26/2019 Patient with covid-19 infection. Still intubated, on vent. 07/27/2019 Patient with Covid-19. he is still critically ill. patient has DNR order. 07/28/2019 Patient with Covid-19 infection. Will repeat labs today. Surgeon consulted for tracheostomy. 07/29/2019 Patient with Covid-19. hypokalemia yesterday, replaced. Will recheck labs in am. 07/30/2019 patient with Covid-19 infection with acute respiratory failure. He is intubated on ventilator. has hypokalemia. replace and recheck BMP in am. patient has UTI, started on Cefepime. 07/31/2019. patient with Covid-19 infection with acute respiratory failure. He is intubated on ventilator. Repeat chest x-ray reveals decreased infiltrates. urology consultation and wound care consult per ID. Follow-up urine and blood culture. Tracheostomy per surgery. 08/01/2019. patient with Covid-19 infection with acute respiratory failure. He is intubated on ventilator. Patient currently with PSV trials. Pressure support 18/PEEP 6. FiO2 30%. Tracheostomy to be placed per surgery wound COVID testing negative. 08/02/2019. Patient with COVID-19 infection and acute respiratory failure on mechanical ventilation. Continue with PSVT trials with pressure support increased to 20. Follow-up serial chest x-ray. Continue Fentanyl infusion and wean sedation as tolerated. Continue daily spontaneous breathing trials. 08/03/2019. Patient with COVID-19 infection and acute respiratory failure on mechanical ventilation. Continue with PSV trials with pressure support increased to 20. Follow-up serial chest x-ray. Continue Fentanyl infusion and wean sedation as tolerated. Continue daily spontaneous breathing trials. 08/04/2019. Patient with COVID-19 infection and acute respiratory failure on mechanical ventilation. Continue with PSV trials 14/6, FiO2 30%. Continue Fentanyl infusion and wean sedation as tolerated. Continue daily spontaneous breathing trials. Tracheostomy placement to be scheduled when COVID testing is negative per surgery. Monitor off antibiotics per ID recommendations 08/05/2019. Patient with COVID-19 infection and acute respiratory failure on mechanical ventilation. Patient currently on AC mode, rate 14, tidal volume 500, FiO2 30% and PEEP of 6. Continue PSV trials as tolerated. Tracheostomy placement to be scheduled when COVID testing is negative per surgery. Monitor off antibiotics per ID recommendations. 08/06/2019. Patient with COVID-19 infection and acute respiratory failure on mechanical ventilation. Patient currently on AC mode, rate 14, tidal volume 500, FiO2 30% and PEEP of 6. Continue PSV trials as tolerated. Tracheostomy placement to be scheduled when COVID testing is negative per surgery. ID restarted antibiotics with cefepime 2 g IV every 8 hours to cover for presumed Pseudomonas pneumonia. Follow-up chest x-ray and blood cultures. Repeat COVID testing 07/28 and positive. Repeat test tomorrow. 08/07/19 Patient with Covid-19, acute respiratory failure. He is still intubated on mechanical ventilator. For tracheostomy when Covid-19 test negative. Still having fever. Leukocytosis worse today, WBC 30.3. For CT Chest, Abdomen. 08/08/19 patient with Covid-19, acute respiratory failure. He is still critically ill, intubated. He is for tracheostomy after Covid-19 test negative. Fever improving. Temp 99.[address] Chest and Abdomen done yesterday pending. 08/09/2019 patient with Covid-19 infection, acute resp failure. Still intubated on ventilator. Fever of 100.3 this morning. I discussed with his Nurse The high probability of a clinically significant, sudden or life threatening deterioration of the [respiratory, CVS, SUPPORT MANAGER] system(s) required my full and direct attention, intervention and personal management. The aggregate critical care time was [33] minutes. This time is in addition to time spent performing reported procedures but includes the following: [x] Data Review and interpretation [x] Patient assessment and monitoring of vital signs [x] Documentation [x] Medication orders and management History Interval history: Patient with Covid-19 infection Still intubated Fever Hospitalist Physical - Physical exam Narrative exam: GEN: Not in acute distress, intubated HEENT: Normocephalic, atraumatic, Neck: supple, No JVD Lungs: Bilateral crackles, heart;S1 and S2 reg, no murmurs, rubs or gallop Abd:soft, non tender, non distended, normal bowel sounds,PEG tube Ext: No edema, no clubbing, no cyanosis, Neuro: Intubated, on ventilator,sedated - Constitutional Vitals: Temp Pulse Resp BP Pulse Ox 99.4 F 91 H 19 131/72 98 08/09/19 08:00 08/09/19 06:00 08/09/19 06:00 08/09/19 06:00 08/09/19 06:00 General appearance: Present: other (Orally intubated on vent) HEART Score - HEART Score Troponin: Troponin T 0.013 ng/mL (0.00-0.029) 07/04/19 07:05 Results - Labs CBC & Chem 7: 08/08/19 04:41 08/08/19 04:41 Labs: Laboratory Last Values WBC 22.1 K/mm3 (4.5-11.0) H 08/08/19 04:41 RBC 2.82 M/mm3 (3.65-5.03) L 08/08/19 04:41 Hgb 7.7 gm/dl (11.8-15.2) L 08/08/19 04:41 Hct 23.6 % (35.5-45.6) L 08/08/19 04:41 MCV 84 fl (84-94) 08/08/19 04:41 MCH 27 pg (28-32) L 08/08/19 04:41 MCHC 33 % (32-34) 08/08/19 04:41 RDW 19.1 % (13.2-15.2) H 08/08/19 04:41 Plt Count 722 K/mm3 (140-440) H 08/08/19 04:41 Lymph % (Auto) 4.9 % (13.4-35.0) L 07/19/19 08:45 [place] % (Auto) 12.2 % (0.0-7.3) H 07/22/19 05:38 Eos % (Auto) 1.0 % (0.0-4.3) 07/19/19 08:45 Baso % (Auto) 0.5 % (0.0-1.8) 07/19/19 08:45 Lymph # 0.8 K/mm3 (1.2-5.4) L 07/19/19 08:45 [place] # 1.5 K/mm3 (0.0-0.8) H 07/22/19 05:38 Eos # 0.2 K/mm3 (0.0-0.4) 07/19/19 08:45 Baso # 0.1 K/mm3 (0.0-0.1) 07/19/19 08:45 Add Manual Diff Complete 08/08/19 04:41 Total Counted 100 08/08/19 04:41 Seg Neutrophils % 72.8 % (40.0-70.0) H 07/22/19 05:38 Seg Neuts % (Manual) 90.0 % (40.0-70.0) H 08/08/19 04:41 Band Neutrophils % 0 % 08/08/19 04:41 Lymphocytes % (Manual) 3.0 % (13.4-35.0) L 08/08/19 04:41 Reactive Lymphs % (Man) 0 % 08/08/19 04:41 Monocytes % (Manual) 6.0 % (0.0-7.3) 08/08/19 04:41 Eosinophils % (Manual) 1.0 % (0.0-4.3) 08/08/19 04:41 Basophils % (Manual) 0 % (0.0-1.8) 08/08/19 04:41 Metamyelocytes % 0 % 08/08/19 04:41 Myelocytes % 0 % 08/08/19 04:41 Promyelocytes % 0 % 08/08/19 04:41 Blast Cells % 0 % 08/08/19 04:41 Nucleated RBC % Not Reportable 08/08/19 04:41 Seg Neutrophils # 9.2 K/mm3 (1.8-7.7) H 07/22/19 05:38 Seg Neutrophils # Man 19.9 K/mm3 (1.8-7.7) H 08/08/19 04:41 Band Neutrophils # 0.0 K/mm3 08/08/19 04:41 Lymphocytes # (Manual) 0.7 K/mm3 (1.2-5.4) L 08/08/19 04:41 Abs React Lymphs (Man) 0.0 K/mm3 08/08/19 04:41 Monocytes # (Manual) 1.3 K/mm3 (0.0-0.8) H 08/08/19 04:41 Eosinophils # (Manual) 0.2 K/mm3 (0.0-0.4) 08/08/19 04:41 Basophils # (Manual) 0.0 K/mm3 (0.0-0.1) 08/08/19 04:41 Metamyelocytes # 0.0 K/mm3 08/08/19 04:41 Myelocytes # 0.0 K/mm3 08/08/19 04:41 Promyelocytes # 0.0 K/mm3 08/08/19 04:41 Blast Cells # 0.0 K/mm3 08/08/19 04:41 WBC Morphology Not Reportable 08/08/19 04:41 Hypersegmented Neuts Not Reportable 08/08/19 04:41 Hyposegmented Neuts Not Reportable 08/08/19 04:41 Hypogranular Neuts Not Reportable 08/08/19 04:41 Smudge Cells Not Reportable 08/08/19 04:41 Toxic Granulation Not Reportable 08/08/19 04:41 Toxic Vacuolation Not Reportable 08/08/19 04:41 Dohle Bodies Not Reportable 08/08/19 04:41 Pelger-Huet Anomaly Not Reportable 08/08/19 04:41 Mendy Rods Not Reportable 08/08/19 04:41 Platelet Estimate Consistent w auto 08/08/19 04:41 Clumped Platelets Not Reportable 08/08/19 04:41 Plt Clumps, EDTA Not Reportable 08/08/19 04:41 Large Platelets Not Reportable 08/08/19 04:41 Giant Platelets Not Reportable 08/08/19 04:41 Platelet Satelliting Not Reportable 08/08/19 04:41 Plt Morphology Comment Not Reportable 08/08/19 04:41 RBC Morphology Not Reportable 08/08/19 04:41 Dimorphic RBCs Not Reportable 08/08/19 04:41 Polychromasia Not Reportable 08/08/19 04:41 Hypochromasia Few 08/08/19 04:41 Poikilocytosis Not Reportable 08/08/19 04:41 Anisocytosis Rare 08/08/19 04:41 Microcytosis Rare 08/08/19 04:41 Macrocytosis Not Reportable 08/08/19 04:41 Spherocytes Not Reportable 08/08/19 04:41 Pappenheimer Bodies Not Reportable 08/08/19 04:41 Sickle Cells Not Reportable 08/08/19 04:41 Target Cells Not Reportable 08/08/19 04:41 Tear Drop Cells Not Reportable 08/08/19 04:41 Ovalocytes Rare 08/08/19 04:41 Stomatocytes Few 08/01/19 04:57 Helmet Cells Not Reportable 08/08/19 04:41 Altman-Strandquist Bodies Not Reportable 08/08/19 04:41 [place] Rings Not Reportable 08/08/19 04:41 [place] Cells Not Reportable 08/08/19 04:41 Bite Cells Not Reportable 08/08/19 04:41 Crenated Cell Not Reportable 08/08/19 04:41 Elliptocytes Not Reportable 08/08/19 04:41 Acanthocytes (Spur) Not Reportable 08/08/19 04:41 Rouleaux Not Reportable 08/08/19 04:41 Hemoglobin C Crystals Not Reportable 08/08/19 04:41 Schistocytes Rare 08/08/19 04:41 Malaria parasites Not Reportable 08/08/19 04:41 Jeevan Bodies Not Reportable 08/08/19 04:41 Hem Pathologist Commnt No 08/08/19 04:41 PT 16.0 Sec. (12.2-14.9) H 07/03/19 22:20 INR 1.26 (0.87-1.13) H 07/03/19 22:20 D-Dimer 1808.06 ng/mlDDU (0-234) H 08/07/19 10:24 ABG pH 7.445 pH Units (7.350-7.450) 08/07/19 11:10 ABG pCO2 50.5 mm Hg 08/07/19 11:10 ABG pO2 73.3 mm Hg (80.0-90.0) L 08/07/19 11:10 ABG HCO3 33.9 mmol/L (20.0-26.0) H 08/07/19 11:10 ABG O2 Saturation 96.5 % (95.0-99.0) 08/07/19 11:10 ABG O2 Content 8.5 (0.0-44) 08/07/19 11:10 ABG Base Excess 9.0 mmol/L (-2.0-3.0) H 08/07/19 11:10 ABG Hemoglobin 6.3 gm/dl (14.0-18.0) L 08/07/19 11:10 ABG Carboxyhemoglobin 1.9 % (0.0-5.0) 08/07/19 11:10 ABG Methemoglobin 0.4 % (0.0-1.5) 08/07/19 11:10 Oxyhemoglobin 94.3 % (95.0-99.0) L 08/07/19 11:10 FiO2 30 % 08/07/19 11:10 Sodium 136 mmol/L (137-145) L 08/08/19 04:41 Potassium 4.3 mmol/L (3.6-5.0) D 08/08/19 04:41 Chloride 97.8 mmol/L (98-107) L 08/08/19 04:41 Carbon Dioxide 28 mmol/L (22-30) 08/08/19 04:41 Anion Gap 15 mmol/L 08/08/19 04:41 BUN 12 mg/dL (9-20) 08/08/19 04:41 Creatinine 0.3 mg/dL (0.8-1.5) L 08/08/19 04:41 Estimated GFR > 60 ml/min 08/08/19 04:41 BUN/Creatinine Ratio 40 % 08/08/19 04:41 Glucose 105 mg/dL (75-100) H 08/08/19 04:41 POC Glucose 119 (70-105) H 08/09/19 05:33 Osmolality 268 Mosm/kg 07/05/19 04:00 Lactic Acid 3.30 mmol/L (0.7-2.0) H* 07/04/19 07:05 Uric Acid 7.2 mg/dL (3.5-7.6) 07/05/19 04:00 Calcium 7.8 mg/dL (8.4-10.2) L 08/08/19 04:41 Phosphorus 3.60 mg/dL (2.5-4.5) 07/05/19 04:00 Magnesium 1.80 mg/dL (1.7-2.3) 07/11/19 05:14 Iron 9 ug/dL (49-181) L 07/04/19 07:05 TIBC 97 mcg/dL (250-450) L 07/04/19 07:05 Ferritin 360.4 ng/mL (13.0-400.0) 08/07/19 10:24 Total Bilirubin 0.20 mg/dL (0.1-1.2) 07/04/19 07:05 AST 73 units/L (5-40) H 07/04/19 07:05 ALT 91 units/L (7-56) H 07/04/19 07:05 Alkaline Phosphatase 114 units/L (35-129) 07/04/19 07:05 Ammonia 35.0 umol/L (25-60) 07/03/19 23:58 Lactate Dehydrogenase 144 units/L (91-180) 08/07/19 10:24 Troponin T 0.013 ng/mL (0.00-0.029) 07/04/19 07:05 C-Reactive Protein 11.10 mg/dL (0.00-1.30) H 08/07/19 10:24 Total Protein 5.5 g/dL (6.3-8.2) L 07/04/19 07:05 Albumin 1.6 g/dL (3.9-5) L 07/31/19 04:42 Albumin/Globulin Ratio 0.6 % 07/04/19 07:05 Prealbumin 0.037 g/L (0.200-0.400) L 07/31/19 04:42 Triglycerides 33 mg/dL (2-149) 07/03/19 19:57 Cholesterol 47 mg/dL (50-199) L 07/03/19 19:57 LDL Cholesterol Direct 25 mg/dL (50-130) L 07/03/19 19:57 HDL Cholesterol 20 mg/dL (40-59) L 07/03/19 19:57 Cholesterol/HDL Ratio 2.35 % 07/03/19 19:57 Procalcitonin 0.96 ng/mL (<0.15) 08/07/19 10:24 TSH 2.170 mlU/mL (0.270-4.200) 07/03/19 22:20 Total Cortisol 28.0 mcg/dL () 07/05/19 10:11 Urine Color Yellow (Yellow) 07/29/19 11:57 Urine Turbidity Clear (Clear) 07/29/19 11:57 Urine pH 7.0 (5.0-7.0) 07/29/19 11:57 Ur Specific [place] 1.012 (1.003-1.030) 07/29/19 11:57 Urine Protein <15 mg/dl mg/dL (Negative) 07/29/19 11:57 Urine Glucose (UA) Neg mg/dL (Negative) 07/29/19 11:57 Urine Ketones Neg mg/dL (Negative) 07/29/19 11:57 Urine Blood Sm (Negative) 07/29/19 11:57 Urine Nitrite Neg (Negative) 07/29/19 11:57 Urine Bilirubin Neg (Negative) 07/29/19 11:57 Urine Urobilinogen 4.0 mg/dL (<2.0) 07/29/19 11:57 Ur Leukocyte Esterase Mod (Negative) 07/29/19 11:57 Urine WBC (Auto) 63.0 /HPF (0.0-6.0) H 07/29/19 11:57 Urine RBC (Auto) 14.0 /HPF (0.0-6.0) 07/29/19 11:57 U Epithel Cells (Auto) < 1.0 /HPF (0-13.0) 07/29/19 11:57 Urine Bacteria (Auto) 1+ /HPF (Negative) 07/29/19 11:57 Urine WBC Clumps Few /HPF 07/03/19 21:13 Urine Mucus Few /HPF 07/03/19 21:13 Urine Osmolality 293 Mosm/kg 07/05/19 08:15 Vancomycin Trough 23.2 ug/mL (5.0-20.0) H 07/05/19 17:54 Urine Opiates Screen Presumptive negative 07/03/19 21:13 Urine Methadone Screen Presumptive negative 07/03/19 21:13 Ur Barbiturates Screen Presumptive negative 07/03/19 21:13 Ur Phencyclidine Scrn Presumptive negative 07/03/19 21:13 Ur Amphetamines Screen Presumptive negative 07/03/19 21:13 U Benzodiazepines Scrn Presumptive negative 07/03/19 21:13 Urine Cocaine Screen Presumptive negative 07/03/19 21:13 U Marijuana (THC) Screen Presumptive negative 07/03/19 21:13 Drugs of Abuse Note Disclamer 07/03/19 21:13 Plasma/Serum Alcohol < 0.01 % (0-0.07) 07/03/19 23:58 Coronavirus (PCR) Positive (Negative) A 07/29/19 Unknown Hepatitis A IgM Ab Non-reactive (NonReactive) 08/07/19 10:24 Hep Bs Antigen Non-reactive (Negative) 08/07/19 10:24 Hep B Core IgM Ab Non-reactive (NonReactive) 08/07/19 10:24 Hepatitis C Antibody Non-reactive (NonReactive) 08/07/19 10:24 Blood Type B POSITIVE 07/12/19 08:49 Antibody Screen Negative 07/12/19 08:49 Crossmatch See Detail 07/12/19 08:49 Microbiology: Microbiology 08/06/19 10:18 Peripheral/Venous Blood Culture - Preliminary NO GROWTH AFTER 48 HOURS 08/06/19 11:07 Peripheral/Venous Blood Culture - Preliminary NO GROWTH AFTER 48 HOURS Wright/IV: Voiding Method Indwelling Catheter IV Catheter Type [Left INT / Saline Lock Antecubital] IV Catheter Type [Left Forearm Peripheral IV ] IV Catheter Type [Left Upper Mid-line arm] IV Catheter Type [Right INT / Saline Lock Forearm] IV Catheter Type [Right Hand] INT / Saline Lock IV Catheter Type [Right CVL Femoral] IV Catheter Type [Left INT / Saline Lock External Jugular] Active Medications - Current Medications Current Medications: Generic Name Dose Route Start Last Admin Trade Name Freq PRN Reason Stop Dose Admin Acetaminophen 650 mg 07/04/19 04:24 08/05/19 17:40 Tylenol W[place] 650 mg Q6H PRN Administration Pain MILD(1-3)/Fever >100.5/MURO Acetaminophen 650 mg 07/10/19 04:00 08/06/19 23:43 Tylenol PO 650 mg Q6HR PRN Administration Pain, Mild (1-3) FEVER Lipase/Protease/Amylase 1 each 07/04/19 10:04 07/20/19 06:15 Pancrewhitley [place] 10,500 Unit FEEDTUBE 1 each PRN PRN Administration For Clogged Feeding Tube Aspirin 81 mg 07/05/19 10:00 08/08/19 11:08 Baby Aspirin PO 81 mg QDAY TAMMIE Administration Dextrose 50 ml 07/04/19 06:54 D50w (25gm) Syringe IV Q30MIN PRN Hypoglycemia Protocol Docusate Sodium 100 mg 07/10/19 10:00 08/08/19 21:08 Colace PO 100 mg BID TAMMIE Administration Enoxaparin Sodium 40 mg 07/24/19 10:00 08/08/19 11:09 Enoxaparin SUB-Q 40 mg QDAY@1000 TAMMIE Administration Famotidine 20 mg 07/23/19 22:00 08/08/19 21:06 Pepcid PO 20 mg BID TAMMIE Administration Fentanyl 50 mcg 07/21/19 15:18 Sublimaze IV Q10MIN PRN ANALGESIA Fentanyl 25 mcg 08/03/19 11:00 08/06/19 10:27 Duragesic TD 25 mcg Q3D TAMMIE Administration Folic Acid 1 mg 07/05/19 10:00 08/08/19 11:08 Folvite PO 1 mg QDAY TAMMIE Administration Hydrophilic Ointment 1 applic 07/03/19 19:56 07/05/19 17:42 Vaseline Lip Therapy TP 1 applic Q2HR PRN Administration Dry Lips Norepinephrine 4 mg in 250 mls @ 7.5 mls/hr 07/03/19 23:00 07/20/19 01:00 Levophed Drip 4 Mg/Ns 250 Ml IV Infused TITR TAMMIE Titration Protocol 2 MCG/MIN Piperacillin Sod/Tazobactam Sod 4.5 gm in 100 mls @ 200 mls/hr 08/06/19 12:00 08/09/19 05:20 Zosyn/Ns 4.5gm/100ml IV 200 mls/hr Q6HR TAMMIE Administration Protocol Insulin Human Lispro 0 unit 07/07/19 12:00 08/09/19 05:58 Humalog SUB-Q Not Given Q6HR [facility] Protocol Levetiracetam 750 mg 07/06/19 11:00 08/08/19 21:06 Keppra FEEDTUBE 750 mg Q12HR TAMMIE Administration Metoprolol Tartrate 5 mg 07/12/19 15:08 07/29/19 07:30 Metoprolol IV 5 mg Q6HR PRN Administration Tachyarrhythmias Multi-Ingred Cream/Lotion/Oil/Oint 1 applic 07/03/19 19:56 07/05/19 13:19 Artificial Tears Ophth Oint OU 1 applic Q4HR PRN Administration Dry Eye(s) Naloxone HCl 0.1 mg 07/04/19 04:24 Naloxone IV Q2MIN PRN Res Rate </= 8 or 02 SAT < 92% Oxycodone/Acetaminophen 1 tab 07/19/19 14:17 Percocet 5/325 PO Q4H PRN Pain, Moderate (4-6) Scopolamine 1 each 07/10/19 11:00 08/06/19 10:26 Transderm-Scop TD 1 each Q3D TAMMIE Administration Simple Syrup 15 ml 07/04/19 10:04 07/10/19 21:56 Simple Syrup FEEDTUBE 15 ml PRN PRN Administration Hypoglycemia Simple Syrup 30 ml 07/04/19 10:04 Simple Syrup FEEDTUBE PRN PRN Hypoglycemia Sodium Bicarbonate 325 mg 07/04/19 10:04 07/20/19 10:20 Sodium Bicarbonate FEEDTUBE 325 mg PRN PRN Administration For Clogged Feeding Tube Sodium Chloride 10 ml 07/04/19 10:00 08/08/19 21:06 Sodium Chloride Flush Syringe 10 Ml IV 10 ml BID TAMMIE Administration Sodium Chloride 10 ml 07/04/19 04:24 Sodium Chloride Flush Syringe 10 Ml IV PRN PRN LINE FLUSH Sodium Hypochlorite 1 applic 07/10/19 14:00 08/08/19 21:14 Dakin's Half Strength TP 1 appful BID TAMMIE Administration Nutrition/Malnutrition Assess - Dietary Evaluation Nutrition/Malnutrition Findings: Nutrition Notes Start: 07/04/19 09:17 Freq: Status: Active Protocol: Document 08/08/19 14:53 LM (Rec: 08/08/19 14:57 LM [id number]) Nutrition Notes Initial or Follow up Reassessment Current Diagnosis Acute Kidney Injury,COPD, Decubitus(Pressure Ulcer), Diabetes,Hypertension Other Pertinent Diagnosis COVID-19 (+), pneu, seizures, schizophrenia, Buttock and R foot PU, Current Diet Osmolite 1.5 at 55ml/hr Labs/Tests Na 136 Pertinent Medications Folic acid Height 5 ft 11 in Weight 92 kg Carbon Body Weight (kg) 78.18 BMI 28.3 Subjective/Other Information RN stated pt is tolerating Osmolite at goal. Percent of energy/protein needs met: 97%/75% Burn Absent Trauma Absent Current % PO Negligible Minimum of two criteria No physical signs of malnutrition #2 Nutrition Diagnosis Increased nutrient needs ( specify in comment below) Diagnosis Progress(for reassessment Continues documentation) #1 Nutrition Diagnosis Inadequate oral intake Diagnosis Progress(for reassessment Continues documentation) Is patient on ventilator? Yes Is Patient Ambulatory and/or Out of Bed No REE-([facility]-confined to bed) 2047. Calculation Used for Recommendations [facility] Additional Notes Protein: 110-184 (1.2-2g/kg) Fluid: 1 ml/kcal or per MD Nutrition Intervention Change Diet Order: Continue TF Nutrition Support: Osmolite 1.5 at 55ml/hr Flush 50ml q4h for hyponatremia Flush 150 once resolved Kcal 1,980 Protein (gm) 83 Fluid (mL) 1,006 Goal #1 TF tolerance Goal #2 TF to meet at least 75% of energy and protein needs Anticipated Discharge Needs: unable to determine at this time Follow-Up By: 08/10/19 Additional Comments F/U for TF tolerance, Na
--- NOTE | 2019-08-09 10:42 | Progress Note ---
Assessment and Plan Cultures: 07/03/2019 urine culture: No growth 07/03/2019 Tracheal aspirate: E.coli 07/29/2019 urine culture: neg 07/30/2019 blood culture: no growth tracheal asp + Pseudomonas 08/06/2019 blood culture: no growth A/P: 69-year-old male with CVA, hypertension, dementia, schizophrenia, alcohol use disorder was admitted to the emergency room after being brought in by EMS with progressive shortness of breath and unresponsiveness. He was noted to have agonal breathing and a faint pulse requiring CPR. It seems patient was on hospice recently, prior to admission. #Shock, likely septic: shock resolved, remains off pressors. still fever, leukocytosis better ? bacterial pneumonia vs sacral decubitus infection. Very high procal=24 on 07/29 most recent 0.5 #Nonresolving pneumonia/Cavitary pneumonia: ? abscess. Sputum +Pseudomonas. CT shows RUL pneumonia with 2.4 cm cavity and LLL pneumonia with moderate left pleural effusion. #Penile/scrotal and buttocks wounds: ?cellulitis #Sacral decubitus: worsening on last exam ? necrotic. Evaluated for surgery, no indications for intervention. 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 #Severe COVID-19 disease and pneumonia: Markers improving. Completed Plaquenil. Completed Ceftriaxone for treatment E.coli in tracheal aspirate. #Acute respiratory failure: on mechanical ventilation. #Transaminitis: Likely from COVID-19, shock #Multiple skin tears documented on admission Recs: Dr Whittington will review chest CT to determine if need for thoracentesis Surgical eval of sacral decubitus appreciated Obtain sacral wound cultures Continue zosyn IV 4.5 g IV q 6 hour - may need 4-6 weeks abx for lung abscess and osteomyelitis Monitor fever Off loading Tracheostomy placement to be scheduled when COVID testing is negative per surgery. Repeat COVID 5/10 positive. will recheck today Will follow. Discussed w Dr Nelsy Garcia MD Infectious Diseases [employer] [facility] [phone] Subjective Date of service: 08/09/19 Principal diagnosis: Bilateral pneumonia, severe sepsis with septic shock, encephalopathy Interval history: Remains intubated, tmax 100.3, no pressors, on sedative Objective - Exam Narrative Exam: General appearance: sedated on the vent Eyes: anicteric sclerae, moist conjunctivae; no lid-lag; PERRLA HENT: Atraumatic; oropharynx ETT with thick yellow secretion Lungs: madelin rhonchi per RT CV: RRR Abdomen: Soft, non-tender Extremities: marked madelin arm edema Skin: No rash. Genital: penile/scrotal ulcer covered w dressings Psych: no agitated Neuro: sedated Carroll - Constitutional Vitals: Vital Signs Temp Pulse Resp BP Pulse Ox 99.4 F 91 H 19 131/72 98 08/09/19 08:00 08/09/19 08:56 08/09/19 06:00 08/09/19 08:56 08/09/19 08:56 Temperature -Last 24 Hours Temperature 99.4 F Temperature 100.3 F Temperature 100.2 F Temperature 99.9 F Temperature 99.5 F - Labs CBC & Chem 7: 08/08/19 04:41 08/08/19 04:41 Labs: Abnormal lab results 08/08/19 08/08/19 08/09/19 Range/Units 11:46 18:35 00:12 POC Glucose 117 H 117 H 117 H (70-105) 08/09/19 Range/Units 05:33 POC Glucose 119 H (70-105)
[2019-08-09] MEDS: ASPIRIN 81 MG TAB CHEW PO SCH (11:40)
[2019-08-09] MEDS: FOLIC ACID 1 MG TAB PO SCH (11:40)
[2019-08-09] MEDS: FAMOTIDINE 20 MG TAB PO SCH ×2 (11:40→22:08)
[2019-08-09] MEDS: DOCUSATE SODIUM 100 MG/10 ML ORAL LIQD PO SCH ×2 (11:40→22:08)
[2019-08-09] MEDS: ENOXAPARIN 40 MG/0.4 ML INJ SUB-Q SCH (11:40)
[2019-08-09] MEDS: levETIRAcetam 500 MG/5 ML ORAL LIQD FEEDTUBE SCH ×2 (11:40→22:07)
[2019-08-09] MEDS: SCOPOLAMINE TRANSDERMAL PATCH 72 HR TD SCH (11:43)
[2019-08-09] MEDS: fentaNYL 25 MCG/HR PATCH 72HR TD SCH (11:43)
[2019-08-09] MEDS: SODIUM HYPOCHLORITE, DAKIN'S 1/2 STRENGTH (0.25%) 473 ML TOPICAL SOLN TP SCH ×2 (11:44→22:00)
[2019-08-09] MEDS ORDERED: LIDOCAINE (4%) 40 MG/ML TOPICAL SOLN 50 ML BOTTLE TP NR (13:27)
--- NOTE | 2019-08-09 14:33 | Procedure Note ---
Date of procedure: 08/09/19 Pre-op diagnosis: infected sacral and left ischial wounds, osteomyelitis Post-op diagnosis: same Procedure: excisional debridement of left ischial and sacral wounds Findings: Consent obtained from patient's . All risks, benefits, alternatives to procedure discussed and questions answered. Time out performed. Patient insensate in the location of the wounds. First, the left ischial wound was debrided sharply using a forecep and 11 blade. All necrotic skin, subcutaneous tissue and fascia was removed. Fascia was left intact over the bone. There was minimal bleeding from the wound edges which was controlled with pressure. The wound was packed with 1 piece of dakins moistened gauze and covered with foam dressing. Next, the sacral wound was debrided sharply using an 11 blade, scissors, and forecep. All necrotic tissue and slough was debrided. The debridement extended through the skin and subcutaneous tissue to the fascia. There was some bleeding from the inferior wound bed and skin edges which was controlled with pressure and application of hemostatic agent. The wound was packed with kerlex x2 pieces and covered with 4x4 gauze, ABD pads, and foam dressing. The patient was placed on his back for additional pressure. The patient tolerated the procedure well. All sharps were disposed of appropriately. Cultures of sacral wound were sent off. Anesthesia: none (insensate) Estimated blood loss: 50-100ml Pathology: list (cx) Specimen disposition: to lab Condition: stable Disposition: no change
--- NOTE | 2019-08-09 14:34 | Progress Note ---
Assessment and Plan Acute hypoxemic respiratory failure on MVS Severe sepsis with Shock. Bilateral Pneumonia. PUI coronavirus-19 infection. Acute possibly on chronic encephalopathy. Oropharyngeal dysphagia. Anemia. Decubitus ulcers Diabetes type 2. Hypertension. Leukocytosis. Anemia that is microcytic. Elevated serum transaminases. [id number] metabolic acidosis. Lactic acidosis. Severe protein-calorie malnutrition - follow H&H post debridement - no new issues, continue care as below - repeat COVID-19 testing pending - surgery evaluation ongoing for tracheostomy placement (await negative COVID test) - continue care as below otherwise - continue fentanyl gtt for pain control / sedation - continue to wean supplemental oxygen for target O2 sat's > 90% acutely - continue daily SAT's and SBT assessment as tolerated - VAP bundle addressed - continue lung protective strategies - continue bronchodilators with pulmonary hygiene per RT - wean per pulmonary driven protocols otherwise - prn Levophed for target MAP > 65 mmHg - continue airborne and contact COVID-19 precautions - COVID-19 test positive - complete anti-infectives and de-escalate per ID recommendations - continue wound care per WCT - sedation prn for target RASS 0 to -1 - accuchecks with glycemic control per SSI (While critically ill target blood glucose of 140-180 mg/dL; avoid hypoglycemia) - to avoid benzodiazepine's, reduce the possibility of delirium - prn analgesia per CPOT score - Maintenance of sleep-wake cycle, avoid delirium - continue enteral nutritional support at goal rate as tolerated - G.I. & VTE prophylaxis - PT/OT/ROM exercises - continue mobility protocols for pressure ulcer prophylaxis - Monitor hemodynamics closely - continue other care per attending / other consultants - discharge planning ongoing concurrently .... Re-evaluate in am & prn CONDITION: CRITICAL PROGNOSIS: GUARDED CODE STATUS: FULL CODE The high probability of a clinically significant, sudden or life-threatening deterioration of the [respiratory & cardiovascular] system(s) required my full and direct attention, intervention and personal management. The aggregate critical care time was [33] minutes without overlap. Time includes spent on; [x] Data Review and interpretation [x] Patient assessment and monitoring of vital signs [x] Documentation [x] Medication orders and management Subjective Date of service: 08/09/19 Principal diagnosis: Bilateral pneumonia, severe sepsis with septic shock, encephalopathy Interval history: Patient is seen today for: Ac hypoxemic Resp failure on MVS; Severe sepsis with Shock; Ivan. Pneumonia; PUI coronavirus-19 infection. Seen and examined at bedside; 24hour events reviewed; nursing and respiratory care staff consulted; no adverse overnight events reported to me; resting in bed; remains on MVS; AMS is persistent; for wound debridement today; leucocytosis persistent Objective Vital Signs - 12hr 08/09/19 08/09/19 08/09/19 03:00 03:37 04:00 Temperature 100.3 F H Pulse Rate 91 H 80 83 Respiratory 21 20 Rate Blood Pressure 161/87 164/105 O2 Sat by Pulse 98 100 Oximetry 08/09/19 08/09/19 08/09/19 04:21 05:00 06:00 Temperature Pulse Rate 96 H 84 91 H Respiratory 18 19 Rate Blood Pressure 164/105 164/87 131/72 O2 Sat by Pulse 100 100 98 Oximetry 08/09/19 08/09/19 08/09/19 07:00 08:00 08:56 Temperature 99.4 F Pulse Rate 93 H 87 91 H Respiratory 21 22 Rate Blood Pressure 147/85 159/92 131/72 O2 Sat by Pulse 96 99 98 Oximetry 08/09/19 08/09/19 08/09/19 09:00 10:00 11:00 Temperature Pulse Rate 91 H 84 89 Respiratory 22 24 24 Rate Blood Pressure 171/94 168/90 172/99 O2 Sat by Pulse 99 99 98 Oximetry 08/09/19 08/09/19 11:42 12:00 Temperature 97.6 F Pulse Rate 89 85 Respiratory 20 Rate Blood Pressure 172/99 164/89 O2 Sat by Pulse 98 99 Oximetry Constitutional: appears uncomfortable, other (eelderly and chronically ill looking AAM, normocep[krystina;ic with mildly increased respiratory effort at rest) Eyes: non-icteric ENT: oropharynx moist, other (ETT 24 cm Pawan) Neck: supple, no lymphadenopathy, no JVD Effort: very labored Ascultation: Bilateral: diminished breath sounds, rhonchi Percussion: Bilateral: not dull Cardiovascular: regular rate and rhythm Gastrointestinal: normoactive bowel sounds, soft, non-tender, non-distended, other (+ PEG tube with mild TF leakage) Integumentary: decubitus ulcer (sacral) Extremities: no cyanosis, no edema, pink and warm, pulses normal Neurologic: unable to assess Psychiatric: other (Unable to assess re: AMS) CBC and BMP: 08/10/19 08:00 08/10/19 08:00 ABG, PT/INR, D-dimer: ABG ABG pH 7.445 pH Units (7.350-7.450) 08/07/19 11:10 ABG pCO2 50.5 mm Hg 08/07/19 11:10 ABG pO2 73.3 mm Hg (80.0-90.0) L 08/07/19 11:10 ABG O2 Saturation 96.5 % (95.0-99.0) 08/07/19 11:10 PT/INR, D-dimer PT 16.0 Sec. (12.2-14.9) H 07/03/19 22:20 INR 1.26 (0.87-1.13) H 07/03/19 22:20 D-Dimer 1808.06 ng/mlDDU (0-234) H 08/07/19 10:24 Abnormal lab findings: Abnormal Labs 07/03/19 07/03/19 07/03/19 19:57 21:10 21:13 WBC RBC Hgb Hct MCV MCH MCHC RDW Plt Count Lymph % (Auto) Gregg % (Auto) Lymph # Gregg # Baso # Seg Neutrophils % Seg Neuts % (Manual) Lymphocytes % (Manual) Monocytes % (Manual) Nucleated RBC % Seg Neutrophils # Seg Neutrophils # Man Lymphocytes # (Manual) Monocytes # (Manual) Basophils # (Manual) PT INR D-Dimer ABG pH 7.238 L ABG pO2 210.8 H ABG HCO3 15.4 L ABG O2 Saturation 99.2 H ABG Base Excess -11.1 L ABG Hemoglobin 8.0 L Oxyhemoglobin Sodium 124 L Potassium Chloride 92.9 L Carbon Dioxide 10 L BUN 23 H Creatinine 0.5 L Glucose 118 H POC Glucose Lactic Acid Calcium 7.0 L Magnesium Iron TIBC Ferritin AST 70 H ALT 88 H Lactate Dehydrogenase Troponin T 0.032 H C-Reactive Protein Total Protein 5.0 L Albumin 1.8 L Prealbumin Cholesterol 47 L LDL Cholesterol Direct 25 L HDL Cholesterol 20 L Urine WBC (Auto) 12.0 H Vancomycin Trough Coronavirus (PCR) Crossmatch 07/03/19 07/03/19 07/03/19 22:20 22:20 22:20 WBC 30.5 H RBC 2.96 L Hgb 7.7 L Hct 23.9 L MCV 81 L MCH 26 L MCHC RDW 18.6 H Plt Count 459 H Lymph % (Auto) Gregg % (Auto) Lymph # Gregg # Baso # Seg Neutrophils % Seg Neuts % (Manual) 93.0 H Lymphocytes % (Manual) 0.5 L Monocytes % (Manual) Nucleated RBC % Seg Neutrophils # Seg Neutrophils # Man 28.4 H Lymphocytes # (Manual) 0.2 L Monocytes # (Manual) Basophils # (Manual) PT 16.0 H INR 1.26 H D-Dimer ABG pH ABG pO2 ABG HCO3 ABG O2 Saturation ABG Base Excess ABG Hemoglobin Oxyhemoglobin Sodium Potassium Chloride Carbon Dioxide BUN Creatinine Glucose POC Glucose Lactic Acid 6.90 H* Calcium Magnesium Iron TIBC Ferritin AST ALT Lactate Dehydrogenase Troponin T C-Reactive Protein Total Protein Albumin Prealbumin Cholesterol LDL Cholesterol Direct HDL Cholesterol Urine WBC (Auto) Vancomycin Trough Coronavirus (PCR) Crossmatch 07/03/19 07/04/19 07/04/19 23:58 05:15 07:05 WBC 17.1 H RBC 3.22 L Hgb 8.3 L Hct 25.4 L MCV 79 L MCH 26 L MCHC RDW 18.6 H Plt Count Lymph % (Auto) Gregg % (Auto) Lymph # Gregg # Baso # Seg Neutrophils % Seg Neuts % (Manual) 74.0 H Lymphocytes % (Manual) 0 L Monocytes % (Manual) Nucleated RBC % Seg Neutrophils # Seg Neutrophils # Man 12.7 H Lymphocytes # (Manual) 0.0 L Monocytes # (Manual) Basophils # (Manual) PT INR D-Dimer ABG pH 7.310 L ABG pO2 73.2 L ABG HCO3 17.8 L ABG O2 Saturation 93.8 L ABG Base Excess -7.7 L ABG Hemoglobin 9.6 L Oxyhemoglobin 92.3 L Sodium Potassium Chloride Carbon Dioxide BUN Creatinine Glucose POC Glucose Lactic Acid 7.10 H* Calcium Magnesium Iron TIBC Ferritin AST ALT Lactate Dehydrogenase Troponin T C-Reactive Protein Total Protein Albumin Prealbumin Cholesterol LDL Cholesterol Direct HDL Cholesterol Urine WBC (Auto) Vancomycin Trough Coronavirus (PCR) Crossmatch 07/04/19 07/04/19 07/04/19 07:05 07:05 07:05 WBC RBC Hgb Hct MCV MCH MCHC RDW Plt Count Lymph % (Auto) Gregg % (Auto) Lymph # Gre[place] # Baso # Seg Neutrophils % Seg Neuts % (Manual) Lymphocytes % (Manual) Monocytes % (Manual) Nucleated RBC % Seg Neutrophils # Seg Neutrophils # Man Lymphocytes # (Manual) Monocytes # (Manual) Basophils # (Manual) PT INR D-Dimer ABG pH ABG pO2 ABG HCO3 ABG O2 Saturation ABG Base Excess ABG Hemoglobin Oxyhemoglobin Sodium 120 L Potassium 5.1 H Chloride 90.0 L Carbon Dioxide 14 L BUN 26 H Creatinine 0.5 L Glucose POC Glucose Lactic Acid 3.30 H* Calcium 8.0 L Magnesium Iron 9 L TIBC 97 L Ferritin AST 73 H ALT 91 H Lactate Dehydrogenase Troponin T C-Reactive Protein Total Protein 5.5 L Albumin 2.0 L Prealbumin Cholesterol LDL Cholesterol Direct HDL Cholesterol Urine WBC (Auto) Vancomycin Trough Coronavirus (PCR) Crossmatch 07/04/19 07/04/19 07/04/19 09:39 09:39 09:39 WBC RBC Hgb Hct MCV MCH MCHC RDW Plt Count Lymph % (Auto) Gregg % (Auto) Lymph # Gre[place] # Baso # Seg Neutrophils % Seg Neuts % (Manual) Lymphocytes % (Manual) Monocytes % (Manual) Nucleated RBC % Seg Neutrophils # Seg Neutrophils # Man Lymphocytes # (Manual) Monocytes # (Manual) Basophils # (Manual) PT INR D-Dimer 1419.14 H ABG pH ABG pO2 ABG HCO3 ABG O2 Saturation ABG Base Excess ABG Hemoglobin Oxyhemoglobin Sodium Potassium Chloride Carbon Dioxide BUN Creatinine Glucose POC Glucose Lactic Acid Calcium Magnesium Iron TIBC Ferritin 1719.0 H AST ALT Lactate Dehydrogenase 234 H Troponin T C-Reactive Protein 15.50 H Total Protein Albumin Prealbumin Cholesterol LDL Cholesterol Direct HDL Cholesterol Urine WBC (Auto) Vancomycin Trough Coronavirus (PCR) Crossmatch 07/04/19 07/04/19 07/04/19 10:09 18:08 18:28 WBC RBC Hgb Hct MCV MCH MCHC RDW Plt Count Lymph % (Auto) Gregg % (Auto) Lymph # [place] # Baso # Seg Neutrophils % Seg Neuts % (Manual) Lymphocytes % (Manual) Monocytes % (Manual) Nucleated RBC % Seg Neutrophils # Seg Neutrophils # Man Lymphocytes # (Manual) Monocytes # (Manual) Basophils # (Manual) PT INR D-Dimer ABG pH ABG pO2 ABG HCO3 ABG O2 Saturation ABG Base Excess ABG Hemoglobin Oxyhemoglobin Sodium 117 L* Potassium 5.6 H Chloride 90.3 L Carbon Dioxide 16 L BUN 28 H Creatinine 0.5 L Glucose 58 L POC Glucose 65 L Lactic Acid Calcium 8.2 L Magnesium Iron TIBC Ferritin AST ALT Lactate Dehydrogenase Troponin T C-Reactive Protein Total Protein Albumin Prealbumin Cholesterol LDL Cholesterol Direct HDL Cholesterol Urine WBC (Auto) Vancomycin Trough Coronavirus (PCR) Positive A Crossmatch 07/04/19 07/04/19 07/04/19 23:45 Unknown Unknown WBC RBC Hgb Hct MCV MCH MCHC RDW Plt Count Lymph % (Auto) Gregg % (Auto) Lymph # Gre[place] # Baso # Seg Neutrophils % Seg Neuts % (Manual) Lymphocytes % (Manual) Monocytes % (Manual) Nucleated RBC % Seg Neutrophils # Seg Neutrophils # Man Lymphocytes # (Manual) Monocytes # (Manual) Basophils # (Manual) PT INR D-Dimer 759.77 H ABG pH ABG pO2 ABG HCO3 ABG O2 Saturation ABG Base Excess ABG Hemoglobin Oxyhemoglobin Sodium 122 L Potassium Chloride 93.0 L Carbon Dioxide 19 L BUN 27 H Creatinine 0.5 L Glucose POC Glucose Lactic Acid Calcium 8.3 L Magnesium Iron TIBC Ferritin 1301.0 H AST ALT Lactate Dehydrogenase Troponin T C-Reactive Protein Total Protein Albumin Prealbumin Cholesterol LDL Cholesterol Direct HDL Cholesterol Urine WBC (Auto) Vancomycin Trough Coronavirus (PCR) Crossmatch 07/04/19 07/05/19 07/05/19 Unknown 03:20 04:00 WBC RBC Hgb Hct MCV MCH MCHC RDW Plt Count Lymph % (Auto) Gregg % (Auto) Lymph # [place] # Baso # Seg Neutrophils % Seg Neuts % (Manual) Lymphocytes % (Manual) Monocytes % (Manual) Nucleated RBC % Seg Neutrophils # Seg Neutrophils # Man Lymphocytes # (Manual) Monocytes # (Manual) Basophils # (Manual) PT INR D-Dimer ABG pH ABG pO2 60.6 L ABG HCO3 ABG O2 Saturation 93.5 L ABG Base Excess -2.4 L ABG Hemoglobin 6.9 L Oxyhemoglobin 92.0 L Sodium 125 L Potassium Chloride 92.6 L Carbon Dioxide 19 L BUN 24 H Creatinine 0.6 L Glucose POC Glucose Lactic Acid Calcium 8.2 L Magnesium 1.40 L Iron TIBC Ferritin AST ALT Lactate Dehydrogenase 242 H Troponin T C-Reactive Protein 16.70 H Total Protein Albumin Prealbumin Cholesterol LDL Cholesterol Direct HDL Cholesterol Urine WBC (Auto) Vancomycin Trough Coronavirus (PCR) Crossmatch 07/05/19 07/05/19 07/05/19 10:11 16:15 17:54 WBC 46.4 H* RBC 2.77 L Hgb 7.2 L Hct 21.9 L MCV 79 L MCH 26 L MCHC RDW 19.0 H Plt Count Lymph % (Auto) Gregg % (Auto) Lymph # Gre[place] # Baso # Seg Neutrophils % Seg Neuts % (Manual) 82.0 H Lymphocytes % (Manual) 1.0 L Monocytes % (Manual) Nucleated RBC % Seg Neutrophils # Seg Neutrophils # Man 38.0 H Lymphocytes # (Manual) 0.5 L Monocytes # (Manual) Basophils # (Manual) PT INR D-Dimer ABG pH ABG pO2 ABG HCO3 ABG O2 Saturation ABG Base Excess ABG Hemoglobin Oxyhemoglobin Sodium Potassium Chloride Carbon Dioxide BUN Creatinine Glucose POC Glucose 69 L Lactic Acid Calcium Magnesium Iron TIBC Ferritin AST ALT Lactate Dehydrogenase Troponin T C-Reactive Protein Total Protein Albumin Prealbumin Cholesterol LDL Cholesterol Direct HDL Cholesterol Urine WBC (Auto) Vancomycin Trough 23.2 H Coronavirus (PCR) Crossmatch 07/05/19 07/06/19 07/06/19 19:58 00:27 00:27 WBC RBC Hgb Hct MCV MCH MCHC RDW Plt Count Lymph % (Auto) Gregg % (Auto) Lymph # [place] # Baso # Seg Neutrophils % Seg Neuts % (Manual) Lymphocytes % (Manual) Monocytes % (Manual) Nucleated RBC % Seg Neutrophils # Seg Neutrophils # Man Lymphocytes # (Manual) Monocytes # (Manual) Basophils # (Manual) PT INR D-Dimer 1333.22 H ABG pH ABG pO2 ABG HCO3 ABG O2 Saturation ABG Base Excess ABG Hemoglobin Oxyhemoglobin Sodium 127 L Potassium Chloride Carbon Dioxide BUN Creatinine Glucose POC Glucose Lactic Acid Calcium Magnesium Iron TIBC Ferritin 977.1 H AST ALT Lactate Dehydrogenase Troponin T C-Reactive Protein Total Protein Albumin Prealbumin Cholesterol LDL Cholesterol Direct HDL Cholesterol Urine WBC (Auto) Vancomycin Trough Coronavirus (PCR) Crossmatch 07/06/19 07/06/19 07/06/19 00:27 02:00 02:56 WBC RBC Hgb Hct MCV MCH MCHC RDW Plt Count Lymph % (Auto) Gregg % (Auto) Lymph # [place] # Baso # Seg Neutrophils % Seg Neuts % (Manual) Lymphocytes % (Manual) Monocytes % (Manual) Nucleated RBC % Seg Neutrophils # Seg Neutrophils # Man Lymphocytes # (Manual) Monocytes # (Manual) Basophils # (Manual) PT INR D-Dimer ABG pH ABG pO2 70.3 L ABG HCO3 ABG O2 Saturation 94.8 L ABG Base Excess ABG Hemoglobin 8.0 L Oxyhemoglobin 93.2 L Sodium Potassium Chloride Carbon Dioxide BUN Creatinine Glucose POC Glucose 117 H Lactic Acid Calcium Magnesium Iron TIBC Ferritin AST ALT Lactate Dehydrogenase 236 H Troponin T C-Reactive Protein 22.90 H Total Protein Albumin Prealbumin Cholesterol LDL Cholesterol Direct HDL Cholesterol Urine WBC (Auto) Vancomycin Trough Coronavirus (PCR) Crossmatch 07/06/19 07/06/19 07/06/19 03:49 03:49 07:40 WBC 38.8 H RBC 2.51 L Hgb 6.7 L Hct 19.9 L* MCV 79 L MCH 27 L MCHC RDW 19.2 H Plt Count Lymph % (Auto) [place]gg % (Auto) Lymph # [place] # Baso # Seg Neutrophils % Seg Neuts % (Manual) 90.5 H Lymphocytes % (Manual) 1.0 L Monocytes % (Manual) Nucleated RBC % Seg Neutrophils # Seg Neutrophils # Man 35.1 H Lymphocytes # (Manual) 0.4 L Monocytes # (Manual) Basophils # (Manual) PT INR D-Dimer ABG pH ABG pO2 ABG HCO3 ABG O2 Saturation ABG Base Excess ABG Hemoglobin Oxyhemoglobin Sodium 131 L Potassium Chloride 96.9 L Carbon Dioxide 18 L BUN 23 H Creatinine 0.5 L Glucose POC Glucose Lactic Acid Calcium 8.0 L Magnesium Iron TIBC Ferritin AST ALT Lactate Dehydrogenase Troponin T C-Reactive Protein Total Protein Albumin Prealbumin Cholesterol LDL Cholesterol Direct HDL Cholesterol Urine WBC (Auto) Vancomycin Trough Coronavirus (PCR) Crossmatch See Detail 07/06/19 07/06/19 07/06/19 12:38 14:39 20:00 WBC RBC Hgb Hct MCV MCH MCHC RDW Plt Count Lymph % (Auto) Gregg % (Auto) Lymph # Gre[place] # Baso # Seg Neutrophils % Seg Neuts % (Manual) Lymphocytes % (Manual) Monocytes % (Manual) Nucleated RBC % Seg Neutrophils # Seg Neutrophils # Man Lymphocytes # (Manual) Monocytes # (Manual) Basophils # (Manual) PT INR D-Dimer ABG pH ABG pO2 ABG HCO3 ABG O2 Saturation ABG Base Excess ABG Hemoglobin Oxyhemoglobin Sodium Potassium Chloride Carbon Dioxide BUN Creatinine Glucose POC Glucose 112 H 111 H 140 H Lactic Acid Calcium Magnesium Iron TIBC Ferritin AST ALT Lactate Dehydrogenase Troponin T C-Reactive Protein Total Protein Albumin Prealbumin Cholesterol LDL Cholesterol Direct HDL Cholesterol Urine WBC (Auto) Vancomycin Trough Coronavirus (PCR) Crossmatch 07/06/19 07/06/19 07/07/19 22:43 22:56 02:20 WBC RBC Hgb 7.9 L Hct 23.1 L MCV MCH MCHC RDW Plt Count Lymph % (Auto) Gregg % (Auto) Lymph # [place] # Baso # Seg Neutrophils % Seg Neuts % (Manual) Lymphocytes % (Manual) Monocytes % (Manual) Nucleated RBC % Seg Neutrophils # Seg Neutrophils # Man Lymphocytes # (Manual) Monocytes # (Manual) Basophils # (Manual) PT INR D-Dimer ABG pH ABG pO2 ABG HCO3 ABG O2 Saturation ABG Base Excess ABG Hemoglobin Oxyhemoglobin Sodium Potassium Chloride Carbon Dioxide BUN Creatinine Glucose POC Glucose 122 H 149 H Lactic Acid Calcium Magnesium Iron TIBC Ferritin AST ALT Lactate Dehydrogenase Troponin T C-Reactive Protein Total Protein Albumin Prealbumin Cholesterol LDL Cholesterol Direct HDL Cholesterol Urine WBC (Auto) Vancomycin Trough Coronavirus (PCR) Crossmatch 07/07/19 07/07/19 07/07/19 04:35 05:27 05:34 WBC 23.1 H RBC 3.00 L Hgb 8.1 L Hct 24.2 L MCV 81 L MCH 27 L MCHC RDW 20.6 H Plt Count Lymph % (Auto) [place] % (Auto) Lymph # [place] # Baso # Seg Neutrophils % Seg Neuts % (Manual) 90.0 H Lymphocytes % (Manual) 2.0 L Monocytes % (Manual) Nucleated RBC % Seg Neutrophils # Seg Neutrophils # Man 20.8 H Lymphocytes # (Manual) 0.5 L Monocytes # (Manual) Basophils # (Manual) PT INR D-Dimer ABG pH ABG pO2 65.8 L ABG HCO3 ABG O2 Saturation 92.2 L ABG Base Excess ABG Hemoglobin 8.3 L Oxyhemoglobin 90.6 L Sodium Potassium Chloride Carbon Dioxide BUN Creatinine Glucose POC Glucose 132 H Lactic Acid Calcium Magnesium Iron TIBC Ferritin AST ALT Lactate Dehydrogenase Troponin T C-Reactive Protein Total Protein Albumin Prealbumin Cholesterol LDL Cholesterol Direct HDL Cholesterol Urine WBC (Auto) Vancomycin Trough Coronavirus (PCR) Crossmatch 07/07/19 07/07/19 07/07/19 05:34 11:50 15:58 WBC RBC Hgb 8.1 L Hct 24.2 L MCV MCH MCHC RDW Plt Count Lymph % (Auto) [place]gg % (Auto) Lymph # [place] # Baso # Seg Neutrophils % Seg Neuts % (Manual) Lymphocytes % (Manual) Monocytes % (Manual) Nucleated RBC % Seg Neutrophils # Seg Neutrophils # Man Lymphocytes # (Manual) Monocytes # (Manual) Basophils # (Manual) PT INR D-Dimer ABG pH ABG pO2 ABG HCO3 ABG O2 Saturation ABG Base Excess ABG Hemoglobin Oxyhemoglobin Sodium 135 L Potassium 3.3 L Chloride Carbon Dioxide 20 L BUN 27 H Creatinine 0.6 L Glucose 121 H POC Glucose 123 H Lactic Acid Calcium 8.0 L Magnesium Iron TIBC Ferritin AST ALT Lactate Dehydrogenase Troponin T C-Reactive Protein Total Protein Albumin Prealbumin Cholesterol LDL Cholesterol Direct HDL Cholesterol Urine WBC (Auto) Vancomycin Trough Coronavirus (PCR) Crossmatch 07/07/19 07/07/19 07/07/19 17:42 22:00 23:53 WBC RBC Hgb 8.0 L Hct 23.4 L MCV MCH MCHC RDW Plt Count Lymph % (Auto) [place]gg % (Auto) Lymph # [place] # Baso # Seg Neutrophils % Seg Neuts % (Manual) Lymphocytes % (Manual) Monocytes % (Manual) Nucleated RBC % Seg Neutrophils # Seg Neutrophils # Man Lymphocytes # (Manual) Monocytes # (Manual) Basophils # (Manual) PT INR D-Dimer ABG pH ABG pO2 ABG HCO3 ABG O2 Saturation ABG Base Excess ABG Hemoglobin Oxyhemoglobin Sodium Potassium Chloride Carbon Dioxide BUN Creatinine Glucose POC Glucose 107 H 117 H Lactic Acid Calcium Magnesium Iron TIBC Ferritin AST ALT Lactate Dehydrogenase Troponin T C-Reactive Protein Total Protein Albumin Prealbumin Cholesterol LDL Cholesterol Direct HDL Cholesterol Urine WBC (Auto) Vancomycin Trough Coronavirus (PCR) Crossmatch 07/08/19 07/08/19 07/08/19 00:45 00:45 00:45 WBC RBC Hgb Hct MCV MCH MCHC RDW Plt Count Lymph % (Auto) [place]gg % (Auto) Lymph # [place] # Baso # Seg Neutrophils % Seg Neuts % (Manual) Lymphocytes % (Manual) Monocytes % (Manual) Nucleated RBC % Seg Neutrophils # Seg Neutrophils # Man Lymphocytes # (Manual) Monocytes # (Manual) Basophils # (Manual) PT INR D-Dimer 1142.18 H ABG pH ABG pO2 ABG HCO3 ABG O2 Saturation ABG Base Excess ABG Hemoglobin Oxyhemoglobin Sodium Potassium Chloride Carbon Dioxide BUN Creatinine Glucose POC Glucose Lactic Acid Calcium Magnesium Iron TIBC Ferritin 839.0 H AST ALT Lactate Dehydrogenase 253 H Troponin T C-Reactive Protein 18.90 H Total Protein Albumin Prealbumin Cholesterol LDL Cholesterol Direct HDL Cholesterol Urine WBC (Auto) Vancomycin Trough Coronavirus (PCR) Crossmatch 07/08/19 07/08/19 07/08/19 04:30 05:11 12:02 WBC RBC Hgb Hct MCV MCH MCHC RDW Plt Count Lymph % (Auto) [place] % (Auto) Lymph # [place] # Baso # Seg Neutrophils % Seg Neuts % (Manual) Lymphocytes % (Manual) Monocytes % (Manual) Nucleated RBC % Seg Neutrophils # Seg Neutrophils # Man Lymphocytes # (Manual) Monocytes # (Manual) Basophils # (Manual) PT INR D-Dimer ABG pH ABG pO2 66.0 L ABG HCO3 ABG O2 Saturation 92.3 L ABG Base Excess ABG Hemoglobin 7.7 L Oxyhemoglobin 90.7 L Sodium Potassium Chloride Carbon Dioxide BUN Creatinine Glucose POC Glucose 108 H 153 H Lactic Acid Calcium Magnesium Iron TIBC Ferritin AST ALT Lactate Dehydrogenase Troponin T C-Reactive Protein Total Protein Albumin Prealbumin Cholesterol LDL Cholesterol Direct HDL Cholesterol Urine WBC (Auto) Vancomycin Trough Coronavirus (PCR) Crossmatch 07/08/19 07/08/19 07/08/19 16:15 18:22 23:35 WBC RBC Hgb Hct MCV MCH MCHC RDW Plt Count Lymph % (Auto) [place] % (Auto) Lymph # [place] # Baso # Seg Neutrophils % Seg Neuts % (Manual) Lymphocytes % (Manual) Monocytes % (Manual) Nucleated RBC % Seg Neutrophils # Seg Neutrophils # Man Lymphocytes # (Manual) Monocytes # (Manual) Basophils # (Manual) PT INR D-Dimer ABG pH ABG pO2 ABG HCO3 ABG O2 Saturation ABG Base Excess ABG Hemoglobin Oxyhemoglobin Sodium 134 L Potassium 3.3 L Chloride Carbon Dioxide 21 L BUN 27 H Creatinine 0.6 L Glucose 146 H POC Glucose 134 H 133 H Lactic Acid Calcium Magnesium Iron TIBC Ferritin AST ALT Lactate Dehydrogenase Troponin T C-Reactive Protein Total Protein Albumin Prealbumin Cholesterol LDL Cholesterol Direct HDL Cholesterol Urine WBC (Auto) Vancomycin Trough Coronavirus (PCR) Crossmatch 07/09/19 07/09/19 07/09/19 04:30 04:30 05:00 WBC 18.9 H RBC 2.77 L Hgb 7.4 L Hct 22.8 L MCV 82 L MCH 27 L MCHC RDW 20.9 H Plt Count 130 L Lymph % (Auto) [place] % (Auto) Lymph # [place] # Baso # Seg Neutrophils % Seg Neuts % (Manual) 84.0 H Lymphocytes % (Manual) 0 L Monocytes % (Manual) Nucleated RBC % Seg Neutrophils # Seg Neutrophils # Man 15.9 H Lymphocytes # (Manual) 0.0 L Monocytes # (Manual) Basophils # (Manual) PT INR D-Dimer ABG pH ABG pO2 ABG HCO3 ABG O2 Saturation ABG Base Excess ABG Hemoglobin Oxyhemoglobin Sodium Potassium 3.1 L Chloride Carbon Dioxide BUN 26 H Creatinine 0.5 L Glucose 125 H POC Glucose 155 H Lactic Acid Calcium Magnesium Iron TIBC Ferritin AST ALT Lactate Dehydrogenase Troponin T C-Reactive Protein Total Protein Albumin Prealbumin Cholesterol LDL Cholesterol Direct HDL Cholesterol Urine WBC (Auto) Vancomycin Trough Coronavirus (PCR) Crossmatch 07/09/19 07/09/19 07/09/19 05:55 12:22 17:50 WBC RBC Hgb Hct MCV MCH MCHC RDW Plt Count Lymph % (Auto) [place] % (Auto) Lymph # [place] # Baso # Seg Neutrophils % Seg Neuts % (Manual) Lymphocytes % (Manual) Monocytes % (Manual) Nucleated RBC % Seg Neutrophils # Seg Neutrophils # Man Lymphocytes # (Manual) Monocytes # (Manual) Basophils # (Manual) PT INR D-Dimer ABG pH ABG pO2 62.8 L ABG HCO3 ABG O2 Saturation ABG Base Excess ABG Hemoglobin 6.1 L Oxyhemoglobin 93.9 L Sodium Potassium Chloride Carbon Dioxide BUN Creatinine Glucose POC Glucose 115 H 133 H Lactic Acid Calcium Magnesium Iron TIBC Ferritin AST ALT Lactate Dehydrogenase Troponin T C-Reactive Protein Total Protein Albumin Prealbumin Cholesterol LDL Cholesterol Direct HDL Cholesterol Urine WBC (Auto) Vancomycin Trough Coronavirus (PCR) Crossmatch 07/10/19 07/10/19 07/10/19 00:38 04:00 04:00 WBC RBC Hgb Hct MCV MCH MCHC RDW Plt Count Lymph % (Auto) [place] % (Auto) Lymph # [place]gg # Baso # Seg Neutrophils % Seg Neuts % (Manual) Lymphocytes % (Manual) Monocytes % (Manual) Nucleated RBC % Seg Neutrophils # Seg Neutrophils # Man Lymphocytes # (Manual) Monocytes # (Manual) Basophils # (Manual) PT INR D-Dimer ABG pH ABG pO2 ABG HCO3 ABG O2 Saturation ABG Base Excess ABG Hemoglobin Oxyhemoglobin Sodium Potassium Chloride 107.9 H Carbon Dioxide BUN 26 H Creatinine 0.4 L Glucose 137 H POC Glucose 122 H Lactic Acid Calcium Magnesium 1.50 L Iron TIBC Ferritin AST ALT Lactate Dehydrogenase 277 H Troponin T C-Reactive Protein 15.10 H Total Protein Albumin Prealbumin Cholesterol LDL Cholesterol Direct HDL Cholesterol Urine WBC (Auto) Vancomycin Trough Coronavirus (PCR) Crossmatch 07/10/19 07/10/19 07/10/19 04:07 05:21 17:25 WBC RBC Hgb Hct MCV MCH MCHC RDW Plt Count Lymph % (Auto) [place] % (Auto) Lymph # [place] # Baso # Seg Neutrophils % Seg Neuts % (Manual) Lymphocytes % (Manual) Monocytes % (Manual) Nucleated RBC % Seg Neutrophils # Seg Neutrophils # Man Lymphocytes # (Manual) Monocytes # (Manual) Basophils # (Manual) PT INR D-Dimer ABG pH ABG pO2 65.6 L ABG HCO3 26.3 H ABG O2 Saturation ABG Base Excess ABG Hemoglobin 6.7 L Oxyhemoglobin Sodium Potassium Chloride Carbon Dioxide BUN Creatinine Glucose POC Glucose 144 H 113 H Lactic Acid Calcium Magnesium Iron TIBC Ferritin AST ALT Lactate Dehydrogenase Troponin T C-Reactive Protein Total Protein Albumin Prealbumin Cholesterol LDL Cholesterol Direct HDL Cholesterol Urine WBC (Auto) Vancomycin Trough Coronavirus (PCR) Crossmatch 07/11/19 07/11/19 07/11/19 00:07 05:14 05:25 WBC RBC Hgb Hct MCV MCH MCHC RDW Plt Count Lymph % (Auto) [place] % (Auto) Lymph # [place] # Baso # Seg Neutrophils % Seg Neuts % (Manual) Lymphocytes % (Manual) Monocytes % (Manual) Nucleated RBC % Seg Neutrophils # Seg Neutrophils # Man Lymphocytes # (Manual) Monocytes # (Manual) Basophils # (Manual) PT INR D-Dimer ABG pH ABG pO2 ABG HCO3 ABG O2 Saturation ABG Base Excess ABG Hemoglobin 5.8 L Oxyhemoglobin Sodium Potassium Chloride 108.0 H Carbon Dioxide BUN 26 H Creatinine 0.4 L Glucose 110 H POC Glucose 121 H Lactic Acid Calcium Magnesium Iron TIBC Ferritin AST ALT Lactate Dehydrogenase Troponin T C-Reactive Protein Total Protein Albumin Prealbumin Cholesterol LDL Cholesterol Direct HDL Cholesterol Urine WBC (Auto) Vancomycin Trough Coronavirus (PCR) Crossmatch 07/11/19 07/11/19 07/11/19 12:27 18:00 23:42 WBC RBC Hgb Hct MCV MCH MCHC RDW Plt Count Lymph % (Auto) [place] % (Auto) Lymph # [place] # Baso # Seg Neutrophils % Seg Neuts % (Manual) Lymphocytes % (Manual) Monocytes % (Manual) Nucleated RBC % Seg Neutrophils # Seg Neutrophils # Man Lymphocytes # (Manual) Monocytes # (Manual) Basophils # (Manual) PT INR D-Dimer ABG pH ABG pO2 ABG HCO3 ABG O2 Saturation ABG Base Excess ABG Hemoglobin Oxyhemoglobin Sodium Potassium Chloride Carbon Dioxide BUN Creatinine Glucose POC Glucose 158 H 141 H 142 H Lactic Acid Calcium Magnesium Iron TIBC Ferritin AST ALT Lactate Dehydrogenase Troponin T C-Reactive Protein Total Protein Albumin Prealbumin Cholesterol LDL Cholesterol Direct HDL Cholesterol Urine WBC (Auto) Vancomycin Trough Coronavirus (PCR) Crossmatch 07/12/19 07/12/19 07/12/19 04:46 04:46 05:23 WBC 23.6 H RBC 2.51 L Hgb 6.7 L Hct 20.8 L MCV 83 L MCH 27 L MCHC RDW 20.3 H Plt Count Lymph % (Auto) [place] % (Auto) Lymph # [place] # Baso # Seg Neutrophils % Seg Neuts % (Manual) 94.0 H Lymphocytes % (Manual) 4.0 L Monocytes % (Manual) Nucleated RBC % Seg Neutrophils # Seg Neutrophils # Man 22.2 H Lymphocytes # (Manual) 0.9 L Monocytes # (Manual) Basophils # (Manual) PT INR D-Dimer ABG pH ABG pO2 ABG HCO3 ABG O2 Saturation ABG Base Excess ABG Hemoglobin Oxyhemoglobin Sodium Potassium Chloride 107.1 H Carbon Dioxide BUN 25 H Creatinine 0.4 L Glucose 122 H POC Glucose 118 H Lactic Acid Calcium Magnesium Iron TIBC Ferritin AST ALT Lactate Dehydrogenase Troponin T C-Reactive Protein Total Protein Albumin Prealbumin Cholesterol LDL Cholesterol Direct HDL Cholesterol Urine WBC (Auto) Vancomycin Trough Coronavirus (PCR) Crossmatch 07/12/19 07/12/19 07/12/19 08:49 11:36 18:15 WBC RBC Hgb Hct MCV MCH MCHC RDW Plt Count Lymph % (Auto) [place] % (Auto) Lymph # [place] # Baso # Seg Neutrophils % Seg Neuts % (Manual) Lymphocytes % (Manual) Monocytes % (Manual) Nucleated RBC % Seg Neutrophils # Seg Neutrophils # Man Lymphocytes # (Manual) Monocytes # (Manual) Basophils # (Manual) PT INR D-Dimer ABG pH ABG pO2 ABG HCO3 ABG O2 Saturation ABG Base Excess ABG Hemoglobin Oxyhemoglobin Sodium Potassium Chloride Carbon Dioxide BUN Creatinine Glucose POC Glucose 124 H 110 H Lactic Acid Calcium Magnesium Iron TIBC Ferritin AST ALT Lactate Dehydrogenase Troponin T C-Reactive Protein Total Protein Albumin Prealbumin Cholesterol LDL Cholesterol Direct HDL Cholesterol Urine WBC (Auto) Vancomycin Trough Coronavirus (PCR) Crossmatch See Detail 07/12/19 07/13/19 07/13/19 23:16 05:26 06:50 WBC 23.9 H RBC 2.58 L Hgb 6.9 L Hct 21.5 L MCV 83 L MCH 27 L MCHC RDW 19.0 H Plt Count Lymph % (Auto) [place] % (Auto) Lymph # [place] # Baso # Seg Neutrophils % Seg Neuts % (Manual) 96.0 H Lymphocytes % (Manual) 3.0 L Monocytes % (Manual) Nucleated RBC % Seg Neutrophils # Seg Neutrophils # Man 22.9 H Lymphocytes # (Manual) 0.7 L Monocytes # (Manual) Basophils # (Manual) PT INR D-Dimer ABG pH ABG pO2 ABG HCO3 ABG O2 Saturation ABG Base Excess ABG Hemoglobin Oxyhemoglobin Sodium Potassium Chloride Carbon Dioxide BUN Creatinine Glucose POC Glucose 108 H 126 H Lactic Acid Calcium Magnesium Iron TIBC Ferritin AST ALT Lactate Dehydrogenase Troponin T C-Reactive Protein Total Protein Albumin Prealbumin Cholesterol LDL Cholesterol Direct HDL Cholesterol Urine WBC (Auto) Vancomycin Trough Coronavirus (PCR) Crossmatch 07/13/19 07/13/19 07/13/19 06:50 12:38 18:05 WBC RBC Hgb Hct MCV MCH MCHC RDW Plt Count Lymph % (Auto) [place] % (Auto) Lymph # [place] # Baso # Seg Neutrophils % Seg Neuts % (Manual) Lymphocytes % (Manual) Monocytes % (Manual) Nucleated RBC % Seg Neutrophils # Seg Neutrophils # Man Lymphocytes # (Manual) Monocytes # (Manual) Basophils # (Manual) PT INR D-Dimer ABG pH ABG pO2 ABG HCO3 ABG O2 Saturation ABG Base Excess ABG Hemoglobin Oxyhemoglobin Sodium Potassium Chloride Carbon Dioxide BUN 33 H Creatinine 0.5 L Glucose 136 H POC Glucose 164 H 145 H Lactic Acid Calcium Magnesium Iron TIBC Ferritin AST ALT Lactate Dehydrogenase Troponin T C-Reactive Protein Total Protein Albumin Prealbumin Cholesterol LDL Cholesterol Direct HDL Cholesterol Urine WBC (Auto) Vancomycin Trough Coronavirus (PCR) Crossmatch 07/13/19 07/14/19 07/14/19 18:30 00:21 04:40 WBC 22.9 H RBC 2.45 L Hgb 6.6 L Hct 21.1 L MCV MCH 27 L MCHC 31 L RDW 19.2 H Plt Count Lymph % (Auto) [place] % (Auto) Lymph # [place] # Baso # Seg Neutrophils % Seg Neuts % (Manual) 91.0 H Lymphocytes % (Manual) 7.0 L Monocytes % (Manual) Nucleated RBC % Seg Neutrophils # Seg Neutrophils # Man 20.8 H Lymphocytes # (Manual) Monocytes # (Manual) Basophils # (Manual) PT INR D-Dimer ABG pH ABG pO2 58.1 L ABG HCO3 ABG O2 Saturation 88.7 L ABG Base Excess ABG Hemoglobin 7.8 L Oxyhemoglobin 86.8 L Sodium Potassium Chloride Carbon Dioxide BUN Creatinine Glucose POC Glucose 118 H Lactic Acid Calcium Magnesium Iron TIBC Ferritin AST ALT Lactate Dehydrogenase Troponin T C-Reactive Protein Total Protein Albumin Prealbumin Cholesterol LDL Cholesterol Direct HDL Cholesterol Urine WBC (Auto) Vancomycin Trough Coronavirus (PCR) Crossmatch 07/14/19 07/14/19 07/14/19 04:40 05:38 05:45 WBC RBC Hgb Hct MCV MCH MCHC RDW Plt Count Lymph % (Auto) [place] % (Auto) Lymph # [place] # Baso # Seg Neutrophils % Seg Neuts % (Manual) Lymphocytes % (Manual) Monocytes % (Manual) Nucleated RBC % Seg Neutrophils # Seg Neutrophils # Man Lymphocytes # (Manual) Monocytes # (Manual) Basophils # (Manual) PT INR D-Dimer ABG pH 7.230 L ABG pO2 72.1 L ABG HCO3 ABG O2 Saturation 89.3 L ABG Base Excess -2.7 L ABG Hemoglobin 6.7 L Oxyhemoglobin 87.7 L Sodium Potassium Chloride 107.4 H Carbon Dioxide BUN 45 H Creatinine Glucose 101 H POC Glucose 154 H Lactic Acid Calcium Magnesium Iron TIBC Ferritin AST ALT Lactate Dehydrogenase Troponin T C-Reactive Protein Total Protein Albumin Prealbumin Cholesterol LDL Cholesterol Direct HDL Cholesterol Urine WBC (Auto) Vancomycin Trough Coronavirus (PCR) Crossmatch 07/14/19 07/14/19 07/14/19 12:25 18:20 19:01 WBC 22.4 H RBC 2.70 L Hgb 7.5 L Hct 23.3 L MCV MCH MCHC RDW 19.5 H Plt Count Lymph % (Auto) [place] % (Auto) Lymph # [place] # Baso # Seg Neutrophils % Seg Neuts % (Manual) Lymphocytes % (Manual) Monocytes % (Manual) Nucleated RBC % Seg Neutrophils # Seg Neutrophils # Man Lymphocytes # (Manual) Monocytes # (Manual) Basophils # (Manual) PT INR D-Dimer ABG pH ABG pO2 ABG HCO3 ABG O2 Saturation ABG Base Excess ABG Hemoglobin Oxyhemoglobin Sodium Potassium Chloride Carbon Dioxide BUN Creatinine Glucose POC Glucose 136 H 131 H Lactic Acid Calcium Magnesium Iron TIBC Ferritin AST ALT Lactate Dehydrogenase Troponin T C-Reactive Protein Total Protein Albumin Prealbumin Cholesterol LDL Cholesterol Direct HDL Cholesterol Urine WBC (Auto) Vancomycin Trough Coronavirus (PCR) Crossmatch 07/15/19 07/15/19 07/15/19 00:17 04:35 05:18 WBC 20.6 H RBC 2.41 L Hgb 6.8 L Hct 20.7 L MCV MCH MCHC RDW 20.2 H Plt Count Lymph % (Auto) [place] % (Auto) Lymph # [place] # Baso # Seg Neutrophils % Seg Neuts % (Manual) 92.0 H Lymphocytes % (Manual) 5.0 L Monocytes % (Manual) Nucleated RBC % Seg Neutrophils # Seg Neutrophils # Man 19.0 H Lymphocytes # (Manual) 1.0 L Monocytes # (Manual) Basophils # (Manual) PT INR D-Dimer ABG pH 7.342 L ABG pO2 ABG HCO3 ABG O2 Saturation ABG Base Excess -3.1 L ABG Hemoglobin 7.2 L Oxyhemoglobin 94.9 L Sodium Potassium Chloride Carbon Dioxide BUN Creatinine Glucose POC Glucose 116 H Lactic Acid Calcium Magnesium Iron TIBC Ferritin AST ALT Lactate Dehydrogenase Troponin T C-Reactive Protein Total Protein Albumin Prealbumin Cholesterol LDL Cholesterol Direct HDL Cholesterol Urine WBC (Auto) Vancomycin Trough Coronavirus (PCR) Crossmatch 07/15/19 07/15/19 07/15/19 05:18 05:57 11:28 WBC RBC Hgb Hct MCV MCH MCHC RDW Plt Count Lymph % (Auto) [place] % (Auto) Lymph # [place] # Baso # Seg Neutrophils % Seg Neuts % (Manual) Lymphocytes % (Manual) Monocytes % (Manual) Nucleated RBC % Seg Neutrophils # Seg Neutrophils # Man Lymphocytes # (Manual) Monocytes # (Manual) Basophils # (Manual) PT INR D-Dimer ABG pH ABG pO2 ABG HCO3 ABG O2 Saturation ABG Base Excess ABG Hemoglobin Oxyhemoglobin Sodium Potassium Chloride Carbon Dioxide 20 L BUN 59 H Creatinine Glucose 140 H POC Glucose 139 H 117 H Lactic Acid Calcium Magnesium Iron TIBC Ferritin AST ALT Lactate Dehydrogenase Troponin T C-Reactive Protein Total Protein Albumin Prealbumin Cholesterol LDL Cholesterol Direct HDL Cholesterol Urine WBC (Auto) Vancomycin Trough Coronavirus (PCR) Crossmatch 07/15/19 07/16/19 07/16/19 18:13 00:06 03:43 WBC RBC Hgb Hct MCV MCH MCHC RDW Plt Count Lymph % (Auto) [place] % (Auto) Lymph # [place] # Baso # Seg Neutrophils % Seg Neuts % (Manual) Lymphocytes % (Manual) Monocytes % (Manual) Nucleated RBC % Seg Neutrophils # Seg Neutrophils # Man Lymphocytes # (Manual) Monocytes # (Manual) Basophils # (Manual) PT INR D-Dimer ABG pH 7.344 L ABG pO2 68.6 L ABG HCO3 ABG O2 Saturation ABG Base Excess -3.5 L ABG Hemoglobin 6.1 L Oxyhemoglobin 93.3 L Sodium Potassium Chloride Carbon Dioxide BUN Creatinine Glucose POC Glucose 114 H 119 H Lactic Acid Calcium Magnesium Iron TIBC Ferritin AST ALT Lactate Dehydrogenase Troponin T C-Reactive Protein Total Protein Albumin Prealbumin Cholesterol LDL Cholesterol Direct HDL Cholesterol Urine WBC (Auto) Vancomycin Trough Coronavirus (PCR) Crossmatch 07/16/19 07/16/19 07/16/19 04:41 04:41 12:09 WBC 19.6 H RBC 2.81 L Hgb 7.7 L Hct 24.0 L MCV MCH 27 L MCHC RDW 19.4 H Plt Count 514 H Lymph % (Auto) 6.7 L [place] % (Auto) Lymph # [place] # 1.0 H Baso # Seg Neutrophils % 87.0 H Seg Neuts % (Manual) Lymphocytes % (Manual) Monocytes % (Manual) Nucleated RBC % Seg Neutrophils # 17.0 H Seg Neutrophils # Man Lymphocytes # (Manual) Monocytes # (Manual) Basophils # (Manual) PT INR D-Dimer ABG pH ABG pO2 ABG HCO3 ABG O2 Saturation ABG Base Excess ABG Hemoglobin Oxyhemoglobin Sodium Potassium 5.9 H Chloride Carbon Dioxide 21 L BUN 73 H Creatinine 2.0 H Glucose POC Glucose 141 H Lactic Acid Calcium Magnesium Iron TIBC Ferritin AST ALT Lactate Dehydrogenase Troponin T C-Reactive Protein Total Protein Albumin Prealbumin Cholesterol LDL Cholesterol Direct HDL Cholesterol Urine WBC (Auto) Vancomycin Trough Coronavirus (PCR) Crossmatch 07/16/19 07/16/19 07/17/19 16:19 17:45 00:16 WBC RBC Hgb Hct MCV MCH MCHC RDW Plt Count Lymph % (Auto) [place] % (Auto) Lymph # [place] # Baso # Seg Neutrophils % Seg Neuts % (Manual) Lymphocytes % (Manual) Monocytes % (Manual) Nucleated RBC % Seg Neutrophils # Seg Neutrophils # Man Lymphocytes # (Manual) Monocytes # (Manual) Basophils # (Manual) PT INR D-Dimer ABG pH ABG pO2 ABG HCO3 ABG O2 Saturation ABG Base Excess ABG Hemoglobin Oxyhemoglobin Sodium Potassium 5.1 H Chloride Carbon Dioxide 20 L BUN 72 H Creatinine 1.7 H Glucose 128 H POC Glucose 181 H 164 H Lactic Acid Calcium Magnesium Iron TIBC Ferritin AST ALT Lactate Dehydrogenase Troponin T C-Reactive Protein Total Protein Albumin Prealbumin Cholesterol LDL Cholesterol Direct HDL Cholesterol Urine WBC (Auto) Vancomycin Trough Coronavirus (PCR) Crossmatch 07/17/19 07/17/19 07/17/19 04:20 04:39 04:39 WBC 16.1 H RBC 2.92 L Hgb 8.0 L Hct 25.5 L MCV MCH MCHC 31 L RDW 19.7 H Plt Count 564 H Lymph % (Auto) 3.6 L [place] % (Auto) 7.4 H Lymph # 0.6 L [place] # 1.2 H Baso # Seg Neutrophils % 87.5 H Seg Neuts % (Manual) Lymphocytes % (Manual) Monocytes % (Manual) Nucleated RBC % Seg Neutrophils # 14.1 H Seg Neutrophils # Man Lymphocytes # (Manual) Monocytes # (Manual) Basophils # (Manual) PT INR D-Dimer ABG pH 7.231 L ABG pO2 95.3 H ABG HCO3 ABG O2 Saturation ABG Base Excess -5.0 L ABG Hemoglobin 7.9 L Oxyhemoglobin 94.8 L Sodium Potassium Chloride 107.8 H Carbon Dioxide 21 L BUN 68 H Creatinine Glucose POC Glucose Lactic Acid Calcium Magnesium Iron TIBC Ferritin AST ALT Lactate Dehydrogenase Troponin T C-Reactive Protein Total Protein Albumin Prealbumin Cholesterol LDL Cholesterol Direct HDL Cholesterol Urine WBC (Auto) Vancomycin Trough Coronavirus (PCR) Crossmatch 07/17/19 07/17/19 07/17/19 05:28 12:11 18:48 WBC RBC Hgb Hct MCV MCH MCHC RDW Plt Count Lymph % (Auto) [place] % (Auto) Lymph # [place] # Baso # Seg Neutrophils % Seg Neuts % (Manual) Lymphocytes % (Manual) Monocytes % (Manual) Nucleated RBC % Seg Neutrophils # Seg Neutrophils # Man Lymphocytes # (Manual) Monocytes # (Manual) Basophils # (Manual) PT INR D-Dimer ABG pH ABG pO2 ABG HCO3 ABG O2 Saturation ABG Base Excess ABG Hemoglobin Oxyhemoglobin Sodium Potassium Chloride Carbon Dioxide BUN Creatinine Glucose POC Glucose 121 H 125 H 174 H Lactic Acid Calcium Magnesium Iron TIBC Ferritin AST ALT Lactate Dehydrogenase Troponin T C-Reactive Protein Total Protein Albumin Prealbumin Cholesterol LDL Cholesterol Direct HDL Cholesterol Urine WBC (Auto) Vancomycin Trough Coronavirus (PCR) Crossmatch 07/17/19 07/17/19 07/18/19 19:55 23:57 02:30 WBC RBC Hgb Hct MCV MCH MCHC RDW Plt Count Lymph % (Auto) [place] % (Auto) Lymph # [place] # Baso # Seg Neutrophils % Seg Neuts % (Manual) Lymphocytes % (Manual) Monocytes % (Manual) Nucleated RBC % Seg Neutrophils # Seg Neutrophils # Man Lymphocytes # (Manual) Monocytes # (Manual) Basophils # (Manual) PT INR D-Dimer ABG pH 7.344 L 7.294 L ABG pO2 78.5 L 119.2 H ABG HCO3 ABG O2 Saturation ABG Base Excess -3.3 L -2.6 L ABG Hemoglobin 8.6 L 8.1 L Oxyhemoglobin 94.8 L Sodium Potassium Chloride Carbon Dioxide BUN Creatinine Glucose POC Glucose 148 H Lactic Acid Calcium Magnesium Iron TIBC Ferritin AST ALT Lactate Dehydrogenase Troponin T C-Reactive Protein Total Protein Albumin Prealbumin Cholesterol LDL Cholesterol Direct HDL Cholesterol Urine WBC (Auto) Vancomycin Trough Coronavirus (PCR) Crossmatch 07/18/19 07/18/19 07/18/19 04:49 05:22 05:22 WBC 15.9 H RBC 3.00 L Hgb 8.1 L Hct 26.0 L MCV MCH 27 L MCHC 31 L RDW 19.4 H Plt Count 733 H Lymph % (Auto) 6.3 L [place] % (Auto) 7.4 H Lymph # 1.0 L [place] # 1.2 H Baso # 0.2 H Seg Neutrophils % 83.8 H Seg Neuts % (Manual) Lymphocytes % (Manual) Monocytes % (Manual) Nucleated RBC % Seg Neutrophils # 13.3 H Seg Neutrophils # Man Lymphocytes # (Manual) Monocytes # (Manual) Basophils # (Manual) PT INR D-Dimer ABG pH ABG pO2 ABG HCO3 ABG O2 Saturation ABG Base Excess ABG Hemoglobin Oxyhemoglobin Sodium Potassium Chloride 110.6 H Carbon Dioxide BUN 61 H Creatinine Glucose 109 H POC Glucose 116 H Lactic Acid Calcium Magnesium Iron TIBC Ferritin AST ALT Lactate Dehydrogenase Troponin T C-Reactive Protein Total Protein Albumin Prealbumin Cholesterol LDL Cholesterol Direct HDL Cholesterol Urine WBC (Auto) Vancomycin Trough Coronavirus (PCR) Crossmatch 07/18/19 07/18/19 07/18/19 12:23 18:06 22:20 WBC RBC Hgb Hct MCV MCH MCHC RDW Plt Count Lymph % (Auto) [place] % (Auto) Lymph # [place] # Baso # Seg Neutrophils % Seg Neuts % (Manual) Lymphocytes % (Manual) Monocytes % (Manual) Nucleated RBC % Seg Neutrophils # Seg Neutrophils # Man Lymphocytes # (Manual) Monocytes # (Manual) Basophils # (Manual) PT INR D-Dimer ABG pH 7.338 L ABG pO2 135.1 H ABG HCO3 ABG O2 Saturation ABG Base Excess ABG Hemoglobin 9.2 L Oxyhemoglobin Sodium Potassium Chloride Carbon Dioxide BUN Creatinine Glucose POC Glucose 114 H 113 H Lactic Acid Calcium Magnesium Iron TIBC Ferritin AST ALT Lactate Dehydrogenase Troponin T C-Reactive Protein Total Protein Albumin Prealbumin Cholesterol LDL Cholesterol Direct HDL Cholesterol Urine WBC (Auto) Vancomycin Trough Coronavirus (PCR) Crossmatch 07/18/19 07/19/19 07/19/19 23:33 03:45 05:18 WBC RBC Hgb Hct MCV MCH MCHC RDW Plt Count Lymph % (Auto) [place] % (Auto) Lymph # [place] # Baso # Seg Neutrophils % Seg Neuts % (Manual) Lymphocytes % (Manual) Monocytes % (Manual) Nucleated RBC % Seg Neutrophils # Seg Neutrophils # Man Lymphocytes # (Manual) Monocytes # (Manual) Basophils # (Manual) PT INR D-Dimer ABG pH 7.342 L ABG pO2 95.0 H ABG HCO3 ABG O2 Saturation ABG Base Excess ABG Hemoglobin 8.5 L Oxyhemoglobin Sodium Potassium Chloride Carbon Dioxide BUN Creatinine Glucose POC Glucose 125 H 111 H Lactic Acid Calcium Magnesium Iron TIBC Ferritin AST ALT Lactate Dehydrogenase Troponin T C-Reactive Protein Total Protein Albumin Prealbumin Cholesterol LDL Cholesterol Direct HDL Cholesterol Urine WBC (Auto) Vancomycin Trough Coronavirus (PCR) Crossmatch 07/19/19 07/19/19 07/19/19 08:45 08:45 11:47 WBC 15.9 H RBC 3.31 L Hgb 9.1 L Hct 28.4 L MCV MCH 27 L MCHC RDW 19.1 H Plt Count 858 H Lymph % (Auto) 4.9 L [place] % (Auto) 8.1 H Lymph # 0.8 L [place] # 1.3 H Baso # Seg Neutrophils % 85.5 H Seg Neuts % (Manual) Lymphocytes % (Manual) Monocytes % (Manual) Nucleated RBC % Seg Neutrophils # 13.6 H Seg Neutrophils # Man Lymphocytes # (Manual) Monocytes # (Manual) Basophils # (Manual) PT INR D-Dimer ABG pH ABG pO2 ABG HCO3 ABG O2 Saturation ABG Base Excess ABG Hemoglobin Oxyhemoglobin Sodium Potassium Chloride 111.6 H Carbon Dioxide BUN 50 H Creatinine 0.7 L Glucose 118 H POC Glucose 114 H Lactic Acid Calcium Magnesium Iron TIBC Ferritin AST ALT Lactate Dehydrogenase Troponin T C-Reactive Protein Total Protein Albumin Prealbumin Cholesterol LDL Cholesterol Direct HDL Cholesterol Urine WBC (Auto) Vancomycin Trough Coronavirus (PCR) Crossmatch 07/19/19 07/19/19 07/20/19 18:25 23:44 04:39 WBC RBC Hgb Hct MCV MCH MCHC RDW Plt Count Lymph % (Auto) [place] % (Auto) Lymph # [place] # Baso # Seg Neutrophils % Seg Neuts % (Manual) Lymphocytes % (Manual) Monocytes % (Manual) Nucleated RBC % Seg Neutrophils # Seg Neutrophils # Man Lymphocytes # (Manual) Monocytes # (Manual) Basophils # (Manual) PT INR D-Dimer ABG pH ABG pO2 ABG HCO3 ABG O2 Saturation ABG Base Excess ABG Hemoglobin Oxyhemoglobin Sodium Potassium Chloride 110.3 H Carbon Dioxide BUN 44 H Creatinine 0.6 L Glucose 120 H POC Glucose 115 H 117 H Lactic Acid Calcium Magnesium Iron TIBC Ferritin AST ALT Lactate Dehydrogenase Troponin T C-Reactive Protein Total Protein Albumin Prealbumin Cholesterol LDL Cholesterol Direct HDL Cholesterol Urine WBC (Auto) Vancomycin Trough Coronavirus (PCR) Crossmatch 07/20/19 07/21/19 07/21/19 05:30 11:59 17:40 WBC RBC Hgb Hct MCV MCH MCHC RDW Plt Count Lymph % (Auto) [place] % (Auto) Lymph # [place] # Baso # Seg Neutrophils % Seg Neuts % (Manual) Lymphocytes % (Manual) Monocytes % (Manual) Nucleated RBC % Seg Neutrophils # Seg Neutrophils # Man Lymphocytes # (Manual) Monocytes # (Manual) Basophils # (Manual) PT INR D-Dimer ABG pH ABG pO2 ABG HCO3 ABG O2 Saturation ABG Base Excess ABG Hemoglobin Oxyhemoglobin Sodium Potassium Chloride Carbon Dioxide BUN Creatinine Glucose POC Glucose 131 H 122 H 125 H Lactic Acid Calcium Magnesium Iron TIBC Ferritin AST ALT Lactate Dehydrogenase Troponin T C-Reactive Protein Total Protein Albumin Prealbumin Cholesterol LDL Cholesterol Direct HDL Cholesterol Urine WBC (Auto) Vancomycin Trough Coronavirus (PCR) Crossmatch 07/22/19 07/22/19 07/22/19 05:38 05:38 12:29 WBC 12.6 H RBC 3.19 L Hgb 8.9 L Hct 27.5 L MCV MCH MCHC RDW 18.9 H Plt Count 1101 H* Lymph % (Auto) [place] % (Auto) 12.2 H Lymph # [place] # 1.5 H Baso # Seg Neutrophils % 72.8 H Seg Neuts % (Manual) 76.0 H Lymphocytes % (Manual) 7.0 L Monocytes % (Manual) 14.0 H Nucleated RBC % 1.0 H Seg Neutrophils # 9.2 H Seg Neutrophils # Man 9.6 H Lymphocytes # (Manual) 0.9 L Monocytes # (Manual) 1.8 H Basophils # (Manual) PT INR D-Dimer ABG pH ABG pO2 ABG HCO3 ABG O2 Saturation ABG Base Excess ABG Hemoglobin Oxyhemoglobin Sodium Potassium 3.4 L Chloride Carbon Dioxide BUN 29 H Creatinine 0.5 L Glucose POC Glucose 116 H Lactic Acid Calcium Magnesium Iron TIBC Ferritin AST ALT Lactate Dehydrogenase Troponin T C-Reactive Protein Total Protein Albumin Prealbumin Cholesterol LDL Cholesterol Direct HDL Cholesterol Urine WBC (Auto) Vancomycin Trough Coronavirus (PCR) Crossmatch 07/22/19 07/22/19 07/23/19 18:20 23:51 04:52 WBC RBC Hgb Hct MCV MCH MCHC RDW Plt Count Lymph % (Auto) [place] % (Auto) Lymph # [place] # Baso # Seg Neutrophils % Seg Neuts % (Manual) Lymphocytes % (Manual) Monocytes % (Manual) Nucleated RBC % Seg Neutrophils # Seg Neutrophils # Man Lymphocytes # (Manual) Monocytes # (Manual) Basophils # (Manual) PT INR D-Dimer ABG pH ABG pO2 ABG HCO3 ABG O2 Saturation ABG Base Excess ABG Hemoglobin Oxyhemoglobin Sodium Potassium Chloride Carbon Dioxide BUN 24 H Creatinine 0.4 L Glucose POC Glucose 107 H 110 H Lactic Acid Calcium Magnesium Iron TIBC Ferritin AST ALT Lactate Dehydrogenase Troponin T C-Reactive Protein Total Protein Albumin Prealbumin Cholesterol LDL Cholesterol Direct HDL Cholesterol Urine WBC (Auto) Vancomycin Trough Coronavirus (PCR) Crossmatch 07/23/19 07/23/19 07/24/19 06:00 23:15 04:40 WBC RBC Hgb Hct MCV MCH MCHC RDW Plt Count Lymph % (Auto) [place] % (Auto) Lymph # [place] # Baso # Seg Neutrophils % Seg Neuts % (Manual) Lymphocytes % (Manual) Monocytes % (Manual) Nucleated RBC % Seg Neutrophils # Seg Neutrophils # Man Lymphocytes # (Manual) Monocytes # (Manual) Basophils # (Manual) PT INR D-Dimer ABG pH ABG pO2 73.5 L ABG HCO3 27.0 H 28.5 H ABG O2 Saturation 94.5 L ABG Base Excess ABG Hemoglobin 9.4 L 8.9 L Oxyhemoglobin 94.0 L 92.7 L Sodium Potassium Chloride Carbon Dioxide BUN Creatinine Glucose POC Glucose 117 H Lactic Acid Calcium Magnesium Iron TIBC Ferritin AST ALT Lactate Dehydrogenase Troponin T C-Reactive Protein Total Protein Albumin Prealbumin Cholesterol LDL Cholesterol Direct HDL Cholesterol Urine WBC (Auto) Vancomycin Trough Coronavirus (PCR) Crossmatch 07/24/19 07/24/19 07/25/19 05:25 12:06 00:16 WBC RBC Hgb Hct MCV MCH MCHC RDW Plt Count Lymph % (Auto) [place] % (Auto) Lymph # [place] # Baso # Seg Neutrophils % Seg Neuts % (Manual) Lymphocytes % (Manual) Monocytes % (Manual) Nucleated RBC % Seg Neutrophils # Seg Neutrophils # Man Lymphocytes # (Manual) Monocytes # (Manual) Basophils # (Manual) PT INR D-Dimer ABG pH ABG pO2 ABG HCO3 ABG O2 Saturation ABG Base Excess ABG Hemoglobin Oxyhemoglobin Sodium Potassium Chloride Carbon Dioxide BUN Creatinine Glucose POC Glucose 114 H 108 H 106 H Lactic Acid Calcium Magnesium Iron TIBC Ferritin AST ALT Lactate Dehydrogenase Troponin T C-Reactive Protein Total Protein Albumin Prealbumin Cholesterol LDL Cholesterol Direct HDL Cholesterol Urine WBC (Auto) Vancomycin Trough Coronavirus (PCR) Crossmatch 07/25/19 07/25/19 07/25/19 05:14 05:14 05:17 WBC 17.8 H RBC 3.32 L Hgb 9.2 L Hct 28.6 L MCV MCH MCHC RDW 19.9 H Plt Count 994 H Lymph % (Auto) Gregg % (Auto) Lymph # Gregg # Baso # Seg Neutrophils % Seg Neuts % (Manual) 82.0 H Lymphocytes % (Manual) 5.0 L Monocytes % (Manual) Nucleated RBC % Seg Neutrophils # Seg Neutrophils # Man 14.6 H Lymphocytes # (Manual) 0.9 L Monocytes # (Manual) 1.2 H Basophils # (Manual) PT INR D-Dimer ABG pH ABG pO2 ABG HCO3 ABG O2 Saturation ABG Base Excess ABG Hemoglobin Oxyhemoglobin Sodium Potassium Chloride Carbon Dioxide BUN Creatinine 0.4 L Glucose 110 H POC Glucose 107 H Lactic Acid Calcium Magnesium Iron TIBC Ferritin AST ALT Lactate Dehydrogenase Troponin T C-Reactive Protein Total Protein Albumin Prealbumin Cholesterol LDL Cholesterol Direct HDL Cholesterol Urine WBC (Auto) Vancomycin Trough Coronavirus (PCR) Crossmatch 07/25/19 07/25/19 07/26/19 11:55 23:49 06:01 WBC RBC Hgb Hct MCV MCH MCHC RDW Plt Count Lymph % (Auto) Gregg % (Auto) Lymph # Gregg # Baso # Seg Neutrophils % Seg Neuts % (Manual) Lymphocytes % (Manual) Monocytes % (Manual) Nucleated RBC % Seg Neutrophils # Seg Neutrophils # Man Lymphocytes # (Manual) Monocytes # (Manual) Basophils # (Manual) PT INR D-Dimer ABG pH ABG pO2 ABG HCO3 ABG O2 Saturation ABG Base Excess ABG Hemoglobin Oxyhemoglobin Sodium Potassium Chloride Carbon Dioxide BUN Creatinine Glucose POC Glucose 123 H 118 H 106 H Lactic Acid Calcium Magnesium Iron TIBC Ferritin AST ALT Lactate Dehydrogenase Troponin T C-Reactive Protein Total Protein Albumin Prealbumin Cholesterol LDL Cholesterol Direct HDL Cholesterol Urine WBC (Auto) Vancomycin Trough Coronavirus (PCR) Crossmatch 07/26/19 07/27/19 07/27/19 17:02 00:28 05:16 WBC RBC Hgb Hct MCV MCH MCHC RDW Plt Count Lymph % (Auto) Gregg % (Auto) Lymph # Gregg # Baso # Seg Neutrophils % Seg Neuts % (Manual) Lymphocytes % (Manual) Monocytes % (Manual) Nucleated RBC % Seg Neutrophils # Seg Neutrophils # Man Lymphocytes # (Manual) Monocytes # (Manual) Basophils # (Manual) PT INR D-Dimer ABG pH ABG pO2 63.4 L ABG HCO3 31.3 H ABG O2 Saturation 92.7 L ABG Base Excess 6.3 H ABG Hemoglobin 7.6 L Oxyhemoglobin 90.9 L Sodium Potassium Chloride Carbon Dioxide BUN Creatinine Glucose POC Glucose 116 H 158 H Lactic Acid Calcium Magnesium Iron TIBC Ferritin AST ALT Lactate Dehydrogenase Troponin T C-Reactive Protein Total Protein Albumin Prealbumin Cholesterol LDL Cholesterol Direct HDL Cholesterol Urine WBC (Auto) Vancomycin Trough Coronavirus (PCR) Crossmatch 07/28/19 07/28/19 07/28/19 10:13 10:13 23:54 WBC 18.5 H RBC 3.20 L Hgb 8.8 L Hct 26.8 L MCV MCH 27 L MCHC RDW 19.9 H Plt Count 730 H Lymph % (Auto) Gregg % (Auto) Lymph # Gregg # Baso # Seg Neutrophils % Seg Neuts % (Manual) Lymphocytes % (Manual) Monocytes % (Manual) Nucleated RBC % Seg Neutrophils # Seg Neutrophils # Man Lymphocytes # (Manual) Monocytes # (Manual) Basophils # (Manual) PT INR D-Dimer ABG pH ABG pO2 ABG HCO3 ABG O2 Saturation ABG Base Excess ABG Hemoglobin Oxyhemoglobin Sodium Potassium 3.2 L Chloride 97.5 L Carbon Dioxide 31 H BUN Creatinine 0.5 L Glucose POC Glucose 120 H Lactic Acid Calcium Magnesium Iron TIBC Ferritin AST ALT Lactate Dehydrogenase Troponin T C-Reactive Protein Total Protein Albumin Prealbumin Cholesterol LDL Cholesterol Direct HDL Cholesterol Urine WBC (Auto) Vancomycin Trough Coronavirus (PCR) Crossmatch 07/29/19 07/29/19 07/29/19 11:57 17:43 Unknown WBC RBC Hgb Hct MCV MCH MCHC RDW Plt Count Lymph % (Auto) Gregg % (Auto) Lymph # Gregg # Baso # Seg Neutrophils % Seg Neuts % (Manual) Lymphocytes % (Manual) Monocytes % (Manual) Nucleated RBC % Seg Neutrophils # Seg Neutrophils # Man Lymphocytes # (Manual) Monocytes # (Manual) Basophils # (Manual) PT INR D-Dimer ABG pH ABG pO2 ABG HCO3 ABG O2 Saturation ABG Base Excess ABG Hemoglobin Oxyhemoglobin Sodium Potassium Chloride Carbon Dioxide BUN Creatinine Glucose POC Glucose 112 H Lactic Acid Calcium Magnesium Iron TIBC Ferritin AST ALT Lactate Dehydrogenase Troponin T C-Reactive Protein Total Protein Albumin Prealbumin Cholesterol LDL Cholesterol Direct HDL Cholesterol Urine WBC (Auto) 63.0 H Vancomycin Trough Coronavirus (PCR) Positive A Crossmatch 07/30/19 07/30/19 07/30/19 00:20 04:35 04:35 WBC 24.3 H RBC 3.12 L Hgb 8.5 L Hct 26.3 L MCV MCH 27 L MCHC RDW 20.2 H Plt Count 550 H Lymph % (Auto) Gregg % (Auto) Lymph # Gregg # Baso # Seg Neutrophils % Seg Neuts % (Manual) Lymphocytes % (Manual) Monocytes % (Manual) Nucleated RBC % Seg Neutrophils # Seg Neutrophils # Man Lymphocytes # (Manual) Monocytes # (Manual) Basophils # (Manual) PT INR D-Dimer ABG pH ABG pO2 ABG HCO3 ABG O2 Saturation ABG Base Excess ABG Hemoglobin Oxyhemoglobin Sodium Potassium 3.0 L Chloride 96.3 L Carbon Dioxide 32 H BUN Creatinine 0.5 L Glucose POC Glucose 106 H Lactic Acid Calcium Magnesium Iron TIBC Ferritin AST ALT Lactate Dehydrogenase Troponin T C-Reactive Protein Total Protein Albumin Prealbumin Cholesterol LDL Cholesterol Direct HDL Cholesterol Urine WBC (Auto) Vancomycin Trough Coronavirus (PCR) Crossmatch 07/31/19 07/31/19 07/31/19 04:42 04:42 11:33 WBC 23.8 H RBC 3.10 L Hgb 8.4 L Hct 26.1 L MCV MCH 27 L MCHC RDW 19.6 H Plt Count 561 H Lymph % (Auto) Gregg % (Auto) Lymph # Gregg # Baso # Seg Neutrophils % Seg Neuts % (Manual) Lymphocytes % (Manual) Monocytes % (Manual) Nucleated RBC % Seg Neutrophils # Seg Neutrophils # Man Lymphocytes # (Manual) Monocytes # (Manual) Basophils # (Manual) PT INR D-Dimer ABG pH ABG pO2 ABG HCO3 ABG O2 Saturation ABG Base Excess ABG Hemoglobin Oxyhemoglobin Sodium 135 L Potassium Chloride 93.9 L Carbon Dioxide 32 H BUN Creatinine 0.4 L Glucose POC Glucose 116 H Lactic Acid Calcium Magnesium Iron TIBC Ferritin AST ALT Lactate Dehydrogenase Troponin T C-Reactive Protein Total Protein Albumin 1.6 L Prealbumin 0.037 L Cholesterol LDL Cholesterol Direct HDL Cholesterol Urine WBC (Auto) Vancomycin Trough Coronavirus (PCR) Crossmatch 07/31/19 08/01/19 08/01/19 23:33 04:57 04:57 WBC 26.7 H RBC 3.12 L Hgb 8.5 L Hct 26.3 L MCV MCH 27 L MCHC RDW 19.2 H Plt Count 602 H Lymph % (Auto) Gregg % (Auto) Lymph # Gregg # Baso # Seg Neutrophils % Seg Neuts % (Manual) 93.0 H Lymphocytes % (Manual) 2.0 L Monocytes % (Manual) Nucleated RBC % Seg Neutrophils # Seg Neutrophils # Man 24.8 H Lymphocytes # (Manual) 0.5 L Monocytes # (Manual) 1.1 H Basophils # (Manual) PT INR D-Dimer ABG pH ABG pO2 ABG HCO3 ABG O2 Saturation ABG Base Excess ABG Hemoglobin Oxyhemoglobin Sodium 132 L Potassium Chloride 93.8 L Carbon Dioxide 31 H BUN Creatinine 0.3 L Glucose POC Glucose 148 H Lactic Acid Calcium 8.1 L Magnesium Iron TIBC Ferritin AST ALT Lactate Dehydrogenase Troponin T C-Reactive Protein Total Protein Albumin Prealbumin Cholesterol LDL Cholesterol Direct HDL Cholesterol Urine WBC (Auto) Vancomycin Trough Coronavirus (PCR) Crossmatch 08/01/19 08/02/19 08/02/19 12:16 00:22 05:24 WBC RBC Hgb Hct MCV MCH MCHC RDW Plt Count Lymph % (Auto) Gregg % (Auto) Lymph # Gregg # Baso # Seg Neutrophils % Seg Neuts % (Manual) Lymphocytes % (Manual) Monocytes % (Manual) Nucleated RBC % Seg Neutrophils # Seg Neutrophils # Man Lymphocytes # (Manual) Monocytes # (Manual) Basophils # (Manual) PT INR D-Dimer ABG pH ABG pO2 ABG HCO3 ABG O2 Saturation ABG Base Excess ABG Hemoglobin Oxyhemoglobin Sodium Potassium Chloride Carbon Dioxide BUN Creatinine Glucose POC Glucose 120 H 119 H 113 H Lactic Acid Calcium Magnesium Iron TIBC Ferritin AST ALT Lactate Dehydrogenase Troponin T C-Reactive Protein Total Protein Albumin Prealbumin Cholesterol LDL Cholesterol Direct HDL Cholesterol Urine WBC (Auto) Vancomycin Trough Coronavirus (PCR) Crossmatch 08/03/19 08/03/19 08/03/19 05:20 12:01 23:48 WBC RBC Hgb Hct MCV MCH MCHC RDW Plt Count Lymph % (Auto) Gregg % (Auto) Lymph # Gregg # Baso # Seg Neutrophils % Seg Neuts % (Manual) Lymphocytes % (Manual) Monocytes % (Manual) Nucleated RBC % Seg Neutrophils # Seg Neutrophils # Man Lymphocytes # (Manual) Monocytes # (Manual) Basophils # (Manual) PT INR D-Dimer ABG pH ABG pO2 ABG HCO3 ABG O2 Saturation ABG Base Excess ABG Hemoglobin Oxyhemoglobin Sodium Potassium Chloride Carbon Dioxide BUN Creatinine Glucose POC Glucose 118 H 106 H 120 H Lactic Acid Calcium Magnesium Iron TIBC Ferritin AST ALT Lactate Dehydrogenase Troponin T C-Reactive Protein Total Protein Albumin Prealbumin Cholesterol LDL Cholesterol Direct HDL Cholesterol Urine WBC (Auto) Vancomycin Trough Coronavirus (PCR) Crossmatch 08/04/19 08/04/19 08/04/19 05:38 05:38 06:29 WBC 26.1 H RBC 2.77 L Hgb 7.5 L Hct 23.2 L MCV MCH 27 L MCHC RDW 19.2 H Plt Count 648 H Lymph % (Auto) Gregg % (Auto) Lymph # [place] # Baso # Seg Neutrophils % Seg Neuts % (Manual) 90.5 H Lymphocytes % (Manual) 3.5 L Monocytes % (Manual) Nucleated RBC % Seg Neutrophils # Seg Neutrophils # Man 23.6 H Lymphocytes # (Manual) 0.9 L Monocytes # (Manual) 1.2 H Basophils # (Manual) PT INR D-Dimer ABG pH ABG pO2 ABG HCO3 ABG O2 Saturation ABG Base Excess ABG Hemoglobin Oxyhemoglobin Sodium 132 L Potassium 3.4 L D Chloride 92.7 L Carbon Dioxide 33 H BUN Creatinine 0.2 L Glucose POC Glucose 108 H Lactic Acid Calcium 8.1 L Magnesium Iron TIBC Ferritin AST ALT Lactate Dehydrogenase Troponin T C-Reactive Protein Total Protein Albumin Prealbumin Cholesterol LDL Cholesterol Direct HDL Cholesterol Urine WBC (Auto) Vancomycin Trough Coronavirus (PCR) Crossmatch 08/04/19 08/05/19 08/05/19 12:30 04:58 04:58 WBC 21.0 H RBC 2.63 L Hgb 7.2 L Hct 21.9 L MCV 83 L MCH 27 L MCHC RDW 18.9 H Plt Count 691 H Lymph % (Auto) Gregg % (Auto) Lymph # Gregg # Baso # Seg Neutrophils % Seg Neuts % (Manual) 86.0 H Lymphocytes % (Manual) 3.0 L Monocytes % (Manual) 10.0 H Nucleated RBC % Seg Neutrophils # Seg Neutrophils # Man 18.1 H Lymphocytes # (Manual) 0.6 L Monocytes # (Manual) 2.1 H Basophils # (Manual) PT INR D-Dimer ABG pH ABG pO2 ABG HCO3 ABG O2 Saturation ABG Base Excess ABG Hemoglobin Oxyhemoglobin Sodium 134 L Potassium 3.2 L Chloride 93.2 L Carbon Dioxide 34 H BUN 8 L Creatinine 0.3 L Glucose POC Glucose 138 H Lactic Acid Calcium 8.1 L Magnesium Iron TIBC Ferritin AST ALT Lactate Dehydrogenase Troponin T C-Reactive Protein Total Protein Albumin Prealbumin Cholesterol LDL Cholesterol Direct HDL Cholesterol Urine WBC (Auto) Vancomycin Trough Coronavirus (PCR) Crossmatch 08/05/19 08/05/19 08/05/19 11:53 17:57 23:58 WBC RBC Hgb Hct MCV MCH MCHC RDW Plt Count Lymph % (Auto) Gregg % (Auto) Lymph # Gregg # Baso # Seg Neutrophils % Seg Neuts % (Manual) Lymphocytes % (Manual) Monocytes % (Manual) Nucleated RBC % Seg Neutrophils # Seg Neutrophils # Man Lymphocytes # (Manual) Monocytes # (Manual) Basophils # (Manual) PT INR D-Dimer ABG pH ABG pO2 ABG HCO3 ABG O2 Saturation ABG Base Excess ABG Hemoglobin Oxyhemoglobin Sodium Potassium Chloride Carbon Dioxide BUN Creatinine Glucose POC Glucose 106 H 111 H 116 H Lactic Acid Calcium Magnesium Iron TIBC Ferritin AST ALT Lactate Dehydrogenase Troponin T C-Reactive Protein Total Protein Albumin Prealbumin Cholesterol LDL Cholesterol Direct HDL Cholesterol Urine WBC (Auto) Vancomycin Trough Coronavirus (PCR) Crossmatch 08/06/19 08/06/19 08/06/19 04:11 04:11 06:04 WBC 20.8 H RBC 2.80 L Hgb 7.6 L Hct 23.5 L MCV MCH 27 L MCHC RDW 19.0 H Plt Count 723 H Lymph % (Auto) Gregg % (Auto) Lymph # Gregg # Baso # Seg Neutrophils % Seg Neuts % (Manual) 88.0 H Lymphocytes % (Manual) 3.0 L Monocytes % (Manual) Nucleated RBC % Seg Neutrophils # Seg Neutrophils # Man 18.3 H Lymphocytes # (Manual) 0.6 L Monocytes # (Manual) Basophils # (Manual) 0.2 H PT INR D-Dimer ABG pH ABG pO2 ABG HCO3 ABG O2 Saturation ABG Base Excess ABG Hemoglobin Oxyhemoglobin Sodium Potassium 3.4 L Chloride 95.2 L Carbon Dioxide 32 H BUN Creatinine 0.3 L Glucose POC Glucose 108 H Lactic Acid Calcium 8.2 L Magnesium Iron TIBC Ferritin AST ALT Lactate Dehydrogenase Troponin T C-Reactive Protein Total Protein Albumin Prealbumin Cholesterol LDL Cholesterol Direct HDL Cholesterol Urine WBC (Auto) Vancomycin Trough Coronavirus (PCR) Crossmatch 08/06/19 08/06/19 08/07/19 12:23 17:13 00:21 WBC RBC Hgb Hct MCV MCH MCHC RDW Plt Count Lymph % (Auto) Gregg % (Auto) Lymph # Gregg # Baso # Seg Neutrophils % Seg Neuts % (Manual) Lymphocytes % (Manual) Monocytes % (Manual) Nucleated RBC % Seg Neutrophils # Seg Neutrophils # Man Lymphocytes # (Manual) Monocytes # (Manual) Basophils # (Manual) PT INR D-Dimer ABG pH ABG pO2 ABG HCO3 ABG O2 Saturation ABG Base Excess ABG Hemoglobin Oxyhemoglobin Sodium Potassium Chloride Carbon Dioxide BUN Creatinine Glucose POC Glucose 112 H 132 H 147 H Lactic Acid Calcium Magnesium Iron TIBC Ferritin AST ALT Lactate Dehydrogenase Troponin T C-Reactive Protein Total Protein Albumin Prealbumin Cholesterol LDL Cholesterol Direct HDL Cholesterol Urine WBC (Auto) Vancomycin Trough Coronavirus (PCR) Crossmatch 08/07/19 08/07/19 08/07/19 05:16 05:23 05:23 WBC 30.3 H RBC 2.69 L Hgb 7.1 L Hct 22.2 L MCV 83 L MCH 27 L MCHC RDW 19.1 H Plt Count 650 H Lymph % (Auto) Gregg % (Auto) Lymph # Gregg # Baso # Seg Neutrophils % Seg Neuts % (Manual) 88.0 H Lymphocytes % (Manual) 5.0 L Monocytes % (Manual) Nucleated RBC % Seg Neutrophils # Seg Neutrophils # Man 26.7 H Lymphocytes # (Manual) Monocytes # (Manual) 2.1 H Basophils # (Manual) PT INR D-Dimer ABG pH ABG pO2 ABG HCO3 ABG O2 Saturation ABG Base Excess ABG Hemoglobin Oxyhemoglobin Sodium 135 L Potassium 3.4 L Chloride 95.4 L Carbon Dioxide 32 H BUN Creatinine 0.4 L Glucose 120 H POC Glucose 120 H Lactic Acid Calcium 7.7 L Magnesium Iron TIBC Ferritin AST ALT Lactate Dehydrogenase Troponin T C-Reactive Protein Total Protein Albumin Prealbumin Cholesterol LDL Cholesterol Direct HDL Cholesterol Urine WBC (Auto) Vancomycin Trough Coronavirus (PCR) Crossmatch 08/07/19 08/07/19 08/07/19 10:24 10:24 11:10 WBC RBC Hgb Hct MCV MCH MCHC RDW Plt Count Lymph % (Auto) Gregg % (Auto) Lymph # Gregg # Baso # Seg Neutrophils % Seg Neuts % (Manual) Lymphocytes % (Manual) Monocytes % (Manual) Nucleated RBC % Seg Neutrophils # Seg Neutrophils # Man Lymphocytes # (Manual) Monocytes # (Manual) Basophils # (Manual) PT INR D-Dimer 1808.06 H ABG pH ABG pO2 73.3 L ABG HCO3 33.9 H ABG O2 Saturation ABG Base Excess 9.0 H ABG Hemoglobin 6.3 L Oxyhemoglobin 94.3 L Sodium Potassium Chloride Carbon Dioxide BUN Creatinine Glucose POC Glucose Lactic Acid Calcium Magnesium Iron TIBC Ferritin AST ALT Lactate Dehydrogenase Troponin T C-Reactive Protein 11.10 H Total Protein Albumin Prealbumin Cholesterol LDL Cholesterol Direct HDL Cholesterol Urine WBC (Auto) Vancomycin Trough Coronavirus (PCR) Crossmatch 08/07/19 08/08/19 08/08/19 12:01 04:41 04:41 WBC 22.1 H RBC 2.82 L Hgb 7.7 L Hct 23.6 L MCV MCH 27 L MCHC RDW 19.1 H Plt Count 722 H Lymph % (Auto) Gregg % (Auto) Lymph # Gregg # Baso # Seg Neutrophils % Seg Neuts % (Manual) 90.0 H Lymphocytes % (Manual) 3.0 L Monocytes % (Manual) Nucleated RBC % Seg Neutrophils # Seg Neutrophils # Man 19.9 H Lymphocytes # (Manual) 0.7 L Monocytes # (Manual) 1.3 H Basophils # (Manual) PT INR D-Dimer ABG pH ABG pO2 ABG HCO3 ABG O2 Saturation ABG Base Excess ABG Hemoglobin Oxyhemoglobin Sodium 136 L Potassium Chloride 97.8 L Carbon Dioxide BUN Creatinine 0.3 L Glucose 105 H POC Glucose 130 H Lactic Acid Calcium 7.8 L Magnesium Iron TIBC Ferritin AST ALT Lactate Dehydrogenase Troponin T C-Reactive Protein Total Protein Albumin Prealbumin Cholesterol LDL Cholesterol Direct HDL Cholesterol Urine WBC (Auto) Vancomycin Trough Coronavirus (PCR) Crossmatch 08/08/19 08/08/19 08/09/19 11:46 18:35 00:12 WBC RBC Hgb Hct MCV MCH MCHC RDW Plt Count Lymph % (Auto) Gregg % (Auto) Lymph # Gregg # Baso # Seg Neutrophils % Seg Neuts % (Manual) Lymphocytes % (Manual) Monocytes % (Manual) Nucleated RBC % Seg Neutrophils # Seg Neutrophils # Man Lymphocytes # (Manual) Monocytes # (Manual) Basophils # (Manual) PT INR D-Dimer ABG pH ABG pO2 ABG HCO3 ABG O2 Saturation ABG Base Excess ABG Hemoglobin Oxyhemoglobin Sodium Potassium Chloride Carbon Dioxide BUN Creatinine Glucose POC Glucose 117 H 117 H 117 H Lactic Acid Calcium Magnesium Iron TIBC Ferritin AST ALT Lactate Dehydrogenase Troponin T C-Reactive Protein Total Protein Albumin Prealbumin Cholesterol LDL Cholesterol Direct HDL Cholesterol Urine WBC (Auto) Vancomycin Trough Coronavirus (PCR) Crossmatch 08/09/19 08/09/19 05:33 12:22 WBC RBC Hgb Hct MCV MCH MCHC RDW Plt Count Lymph % (Auto) Gregg % (Auto) Lymph # Gregg # Baso # Seg Neutrophils % Seg Neuts % (Manual) Lymphocytes % (Manual) Monocytes % (Manual) Nucleated RBC % Seg Neutrophils # Seg Neutrophils # Man Lymphocytes # (Manual) Monocytes # (Manual) Basophils # (Manual) PT INR D-Dimer ABG pH ABG pO2 ABG HCO3 ABG O2 Saturation ABG Base Excess ABG Hemoglobin Oxyhemoglobin Sodium Potassium Chloride Carbon Dioxide BUN Creatinine Glucose POC Glucose 119 H 133 H Lactic Acid Calcium Magnesium Iron TIBC Ferritin AST ALT Lactate Dehydrogenase Troponin T C-Reactive Protein Total Protein Albumin Prealbumin Cholesterol LDL Cholesterol Direct HDL Cholesterol Urine WBC (Auto) Vancomycin Trough Coronavirus (PCR) Crossmatch Allied health notes reviewed: nursing
[2019-08-09] MEDS ORDERED: SODIUM CHLORIDE 0.9% 1000 ML 1,000 ML ONE ×2 (16:58)
[2019-08-09] MEDS ORDERED: SODIUM CHLORIDE 0.9% 500 ML 500 ML IV SCH ×2 (17:07→18:56)
[2019-08-09] MEDS ORDERED: SODIUM CHLORIDE 0.9% 1000 ML 1,000 ML IV ONE (17:16)
[2019-08-09] MEDS: fentaNYL 100 MCG/2 ML INJ IV PRN (17:44)
--- NOTE | 2019-08-09 18:44 | Event Note ---
Date: 08/09/19 Called by patient's RN about bleeding from sacral wound. A small amount of blood was noted on the dressing earlier in the assessment and within 30 mins, on reeval, it was noted that the dressing was saturated with blood. Patient noted to be tachy in at 111 and SBP 120s from 150s. Patient turned to left lat decubitus position. Sacral dressing removed. Blood oozing from inferior 1/3 of wound. Wound cleaned and several areas of venous oozing were identified along with two tiny arterial bleeders, one in the skin and one in the wound bed. Multiple figure of 8 3-0 and 2-0 vicryl sutures were used to control those areas of bleeding with good results. The wound was cleansed with wound cleanser. Surgicel and Fibrillar packing was placed along the right inferior skin edge and inferior most part of the wound. Hemostasis was satisfactory. The wound was packed with kerlex and covered with ABD pads and secured with silk tape to form a compression dressing. The left ischial wound dressing was noted to have minimal bloody drainage. This wound was evaluated and there was venous oozing identified in the inferior portion of the wound in the deep layer. This was controlled with a 3-0 vicryl figure of 8 suture. Hemostasis was ensured. The wound was cleansed with wound cleanser. The wound was packed with 1 piece of dakins moistened kerlex and covered with a coversite dressing. The wounds were reevaluated 20 mins later. There was no active bleeding seen from the left ischial or sacral wounds. The hemostatic agents were left undisturbed. A piece of quickclot dressing was packed into the inferior aspect of the sacral wound. The wound was packed with 4x4 gauze, covered with ABD pads and secured with silk tape. A sacral foam dressing was applied on top of this. The patient's SBP was noted to be in the 90s and HR 110. A 1L bolus of NS was in progress. Type and screen performed and 2 Units of PRBC ordered for transfusion STAT. Blood blank was made aware. STAT Hb drawn - 6.7 from 7.7. Will recheck after 2 Units PRBC transfused. Patient's RN present. Instructed that the dressing should not be disturbed until re-evaluated by surgery team tomorrow.
[2019-08-09 18:51] LABS: Hematocrit 20.4 % (35.5-45.6); Hemoglobin 6.7 gm/dl (11.8-15.2)
--- NOTE | 2019-08-09 21:45 | Procedure Note ---
Date of procedure: 08/09/19 Pre-op diagnosis: iv access Post-op diagnosis: same Procedure: Patient is a 69-year-old female and our ICU. The hospitalist has requested that I place a central line. 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 The hospitalist, Dr. Zimmerman has already done consent with the family. Patient will have a triple-lumen placed. Patient is intubated. Left IJ triple-lumen placement procedure note: Timeout done with bedside nurse. Patient is on the threat monitoring analyst. The left neck site was cleaned and draped in a sterile fashion. Mask gown and gloves were done personal protective equipment was also used since the patient is a COVID patient. The site was cleaned with chlorhexidine scrub provided and the central line kit. Ultrasound was used for placement. The venous vessel was identified on ultrasound. Triple-lumen was placed without complication. Placement verified during the procedure with good blood return on all ports. All ports were aspirated, flushed and capped. Central line was sutured with 2-0 silk. Sterile Tegaderm applied. Chest x-ray was done. Chest x-ray revealed satisfactory position. Patient tolerated procedure well and no complications were rendered. Care will be transferred back to the primary team. Nurse was given a clearance order to use the line. Estimated blood loss: none Pathology: none Condition: critical Disposition: ICU
--- NOTE | 2019-08-09 21:48 | XRay Report ---
CHEST 1 VIEW 08/09/2019 8:42 PM INDICATION / CLINICAL INFORMATION: central line placement. COMPARISON: 08/06/19 FINDINGS: SUPPORT DEVICES: New left jugular central line has been placed with the tip projecting over the super ior vena cava. Endotracheal and esophagogastric tubes are unchanged. HEART / MEDIASTINUM: Stable. LUNGS / PLEURA: Bilateral pulmonary opacities are unchanged. No pneumothorax. ADDITIONAL FINDINGS: No significant additional findings. IMPRESSION: 1. New left central line in expected position. Signer Name: Vida Patrick MD Signed: 08/09/2019 9:43 PM Workstation Name: [id number]
[2019-08-10] MEDS: INSULIN LISPRO 100 UNIT/ML SUB-Q SCH ×5 (00:02→23:46)
[2019-08-10] MEDS: PIPERACIL/TAZOBACTA 4.5/NS 100 4.5 GM/100 ML VIAL IV SCH ×5 (02:03→23:31)
[2019-08-10 08:14] LABS: Hematocrit 24.9 % (35.5-45.6); Hemoglobin 8.2 gm/dl (11.8-15.2); Mean Corpuscular HGB Conc 33 % (32-34); Mean Corpuscular Volume 85 fl (84-94); Platelet Count 661 K/mm3 (140-440); Red Blood Count 2.94 M/mm3 (3.65-5.03)
[2019-08-10 08:40] LABS: BUN/Creatinine Ratio 37; Blood Urea Nitrogen 11 mg/dL (9-20); Calcium 7.7 mg/dL (8.4-10.2); Hemolysis Index 5
--- NOTE | 2019-08-10 08:41 | Progress Note ---
Assessment and Plan Cultures: 07/03/2019 urine culture: No growth 07/03/2019 Tracheal aspirate: E.coli 07/29/2019 urine culture: neg 07/30/2019 blood culture: no growth tracheal asp + Pseudomonas 08/06/2019 blood culture: no growth A/P: 69-year-old male with CVA, hypertension, dementia, schizophrenia, alcohol use disorder was admitted to the emergency room after being brought in by EMS with progressive shortness of breath and unresponsiveness. He was noted to have agonal breathing and a faint pulse requiring CPR. It seems patient was on hospice recently, prior to admission. #Shock, likely septic: shock resolved, remains off pressors. still fever, leukocytosis better ? bacterial pneumonia vs sacral decubitus infection. Very high procal=24 on 07/29 most recent 0.5 #Nonresolving pneumonia/Cavitary pneumonia: ? abscess. Sputum +Pseudomonas. CT shows RUL pneumonia with 2.4 cm cavity and LLL pneumonia with moderate left pleural effusion. No need for thoracentesis per Pulm #Penile/scrotal and buttocks wounds: ?cellulitis #Sacral decubitus: worsening on last exam ? necrotic. Evaluated for surgery, no indications for intervention. 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 bleeding overnight s/p surgical management bedside #UTI: per documentation initial carroll placed on 07/03, exchanged on 07/31. #Severe COVID-19 disease and pneumonia: Markers improving. Completed Plaquenil. Completed Ceftriaxone for treatment E.coli in tracheal aspirate. #Acute respiratory failure: on mechanical ventilation. #Transaminitis: Likely from COVID-19, shock #Multiple skin tears documented on admission #Anemia: from sacral wound bleeding Recs: Repeat COVID today Tracheostomy placement to be scheduled when COVID testing is negative per surgery. Continue zosyn IV 4.5 g IV q 8 hour - may need 4-6 weeks abx for lung abscess and osteomyelitis Off loading Anticipate to d/c on zosyn 4.5 gm IV q 8 hour for 3 weeks until 08/27/2019 to cover for lung abscess and sacral wound infection/osteomeylitis, I am holding off 6 weeks treatment for osteomyelitis as possibility of flap/healing is unlikely. Will follow. Discussed w Dr Nelsy Garcia MD [facility] [employer] [facility] M [phone] O [phone] Subjective Date of service: 08/10/19 Principal diagnosis: Bilateral pneumonia, severe sepsis with septic shock, encephalopathy Interval history: Remains intubated, no fever, no pressors, on sedative, yesterday noted bleeding from sacral wound, surgery managed Objective - Exam Narrative Exam: General appearance: sedated on the vent Eyes: anicteric sclerae, moist conjunctivae; no lid-lag; PERRLA HENT: Atraumatic; oropharynx ETT with thick yellow secretion, NGT Lungs: madelin rhonchi per RT CV: RRR Abdomen: Soft, non-tender Extremities: marked madelin arm edema Skin: No rash. Genital: penile/scrotal ulcer with scab covered w dressings Psych: no agitated Neuro: sedated Carroll - Constitutional Vitals: Vital Signs Temp Pulse Resp BP Pulse Ox 98.7 F 100 H 29 H 144/70 100 08/10/19 08:00 08/10/19 08:00 08/10/19 08:00 08/10/19 08:00 08/10/19 08:00 Temperature -Last 24 Hours Temperature 98.7 F Temperature 97.7 F Temperature 98.9 F Temperature 98.9 F Temperature 98.9 F Temperature 98.9 F Temperature 98.1 F Temperature 98.9 F Temperature 98.9 F Temperature 6.9 F Temperature 97.6 F Temperature 97.7 F Temperature 97.6 F - Labs CBC & Chem 7: 08/10/19 08:00 08/10/19 08:00 Labs: Abnormal lab results 08/09/19 08/09/19 08/09/19 Range/Units 12:22 17:48 17:59 WBC (4.5-11.0) K/mm3 RBC (3.65-5.03) M/mm3 Hgb (11.8-15.2) gm/dl Hct (35.5-45.6) % RDW (13.2-15.2) % Plt Count (140-440) K/mm3 POC Glucose 133 H 123 H (70-105) Crossmatch See Detail 08/09/19 08/10/19 08/10/19 Range/Units 18:15 00:02 05:47 WBC (4.5-11.0) K/mm3 RBC (3.65-5.03) M/mm3 Hgb 6.7 L (11.8-15.2) gm/dl Hct 20.4 L (35.5-45.6) % RDW (13.2-15.2) % Plt Count (140-440) K/mm3 POC Glucose 124 H 148 H (70-105) Crossmatch 08/10/19 Range/Units 08:00 WBC 16.9 H (4.5-11.0) K/mm3 RBC 2.94 L (3.65-5.03) M/mm3 Hgb 8.2 L (11.8-15.2) gm/dl Hct 24.9 L (35.5-45.6) % RDW 17.0 H (13.2-15.2) % Plt Count 661 H (140-440) K/mm3 POC Glucose (70-105) Crossmatch
--- NOTE | 2019-08-10 08:55 | Progress Note ---
Assessment and Plan Assessment and plan: --COVid positive pneumonia with severe sepsis Received Plaquenil and cefepime, monitor off antibiotics ID following --Septic shock: On Levophed Persistent hypotension, titrate to systolic blood pressure more than 100 -- Acute respiratory Failure with Hypoxia Due to bilateral PNA with COVID 19 infection. On ventilatory support, unable to wean Pulmonary critical following --COPD with exacerbation Likely due to COVID-19 pneumonia Continue scheduled nebs --Anemia, Microcytic persistent s/p total 3 unit of PRBC, today Hb today 9.1 --Pressure Ulcers: POA buttocks, right lateral foot area wound and supportive care --Hyponatremia, resolved --DM type 2: Accu-Chek SCC tube feeding, insulin as needed --h/o HTN Essential, now hypotensive On Levophed --Seizure D/o/CVA/immobility/BIpolar D/o/SCZ Seizure precautions, antiepileptic medications --Severe PCM, TF supportive care, dietary following patient is DNR- Called and verified information Very poor prognosis, Recommend hospice 07/04: COVID +ve, start on plaquinil, called no answer 07/05: transfuse one unit PRBC, Hb dropped to ~6, called and updated 07/06; H&H stable, serum chemistry improved. On mechanical ventilation with high inflammatory markers. Continue Plaquenil and empiric antibiotics. ID following, prognosis remains guarded and extremely poor. 07/07: On mechanical ventilation with high inflammatory markers. Continue Plaquenil and empiric antibiotics. ID following, prognosis remains guarded and extremely poor. 07/08: Called today and verified the CODE STATUS. Patient remains DNR. He is still intubated, with poor prognosis. Continue to follow inflammatory markers. 07/09 wean off from vent as tolerated, completed empiric antibiotic and Plaquenil 07/10 wean off from vent as tolerated. poor prognosis 07/11 hb 6.7 today, transfuse one PRBC. wean off from vent as tolerated. poor prognosis 07/12 remains critically on vent. Hb 6.9 07/13 Hb dropped to 6.6, transfuse 1 unit of PRBC, remains on vent critically ill Hypotensive, fluid bolus, if no improvement start Levophed 07/14; remains anemic with hemoglobin of 6.8, received total 3 units of PRBC Additional 1 unit of PRBC today, stool for occult blood to rule out GI causes Started back on Levophed due to hypotension 07/15; patient remains critically ill, hypotensive on Levophed 07/16: Today remains intubated on vent, persistent hypotension on Levophed 07/17; clinically no change, pressor dependent[on Levophed] DNR status 07/18: Patient remains hypotensive requiring Levophed, intubated on vent Unable to wean, critically ill. DNR 07/20/2019 Patient remains hypotensive requiring Levophed, intubated on vent. Patient currently with AC mode ventilation, rate 20, tidal volume 500, FiO2 40% and PEEP 6. Patient is a poor prognosis and apparently was on hospice recently. 07/21/2019. Patient with PEG tube that was clogged yesterday. surgery evaluated the patient and noted Very long PEG tubing with thick material inside. The ent celsa tube was stripped and a large amount of formed tube feed was expressed. The tube was then flushed with sprite and flushed easily. Tube clamped. Patient currently with AC mode ventilation, rate 20, tidal volume 500, FiO2 40% and PEEP 6. Patient is a poor prognosis and apparently was on hospice recently. 07/22/2019. Patient currently with AC mode ventilation, rate 20, tidal volume 500, FiO2 30% and PEEP 6. Patient on sedation with fentanyl drip. Continue Levophed to maintain MAP greater than 65. Patient is a poor prognosis and apparently was on hospice recently. 07/23/2019. Patient currently with AC mode ventilation, rate 20, tidal volume 500, FiO2 30% and PEEP 6. Patient on sedation with fentanyl drip. Continue Levophed to maintain MAP greater than 65. Patient is a poor prognosis and apparently was on hospice recently. 07/24/2019 Patient with Covid-19 infection with pneumonia, acute respiratory failure, intubated on ventilator. No more fever. Continue current management. 07/25/2019 Patient with Covid-19 infection with pneumonia, acute respiratory failure, intubated on ventilator. fever is now resolved. Sedated with propofol 07/26/2019 Patient with covid-19 infection. Still intubated, on vent. 07/27/2019 Patient with Covid-19. he is still critically ill. patient has DNR order. 07/28/2019 Patient with Covid-19 infection. Will repeat labs today. Surgeon consulted for tracheostomy. 07/29/2019 Patient with Covid-19. hypokalemia yesterday, replaced. Will recheck labs in am. 07/30/2019 patient with Covid-19 infection with acute respiratory failure. He is intubated on ventilator. has hypokalemia. replace and recheck BMP in am. patient has UTI, started on Cefepime. 07/31/2019. patient with Covid-19 infection with acute respiratory failure. He is intubated on ventilator. Repeat chest x-ray reveals decreased infiltrates. urology consultation and wound care consult per ID. Follow-up urine and blood culture. Tracheostomy per surgery. 08/01/2019. patient with Covid-19 infection with acute respiratory failure. He is intubated on ventilator. Patient currently with PSV trials. Pressure support 18/PEEP 6. FiO2 30%. Tracheostomy to be placed per surgery wound COVID testing negative. 08/02/2019. Patient with COVID-19 infection and acute respiratory failure on mechanical ventilation. Continue with PSVT trials with pressure support increased to 20. Follow-up serial chest x-ray. Continue Fentanyl infusion and wean sedation as tolerated. Continue daily spontaneous breathing trials. 08/03/2019. Patient with COVID-19 infection and acute respiratory failure on mechanical ventilation. Continue with PSV trials with pressure support increased to 20. Follow-up serial chest x-ray. Continue Fentanyl infusion and wean sedation as tolerated. Continue daily spontaneous breathing trials. 08/04/2019. Patient with COVID-19 infection and acute respiratory failure on mechanical ventilation. Continue with PSV trials 14/6, FiO2 30%. Continue Fentanyl infusion and wean sedation as tolerated. Continue daily spontaneous breathing trials. Tracheostomy placement to be scheduled when COVID testing is negative per surgery. Monitor off antibiotics per ID recommendations 08/05/2019. Patient with COVID-19 infection and acute respiratory failure on mechanical ventilation. Patient currently on AC mode, rate 14, tidal volume 500, FiO2 30% and PEEP of 6. Continue PSV trials as tolerated. Tracheostomy placement to be scheduled when COVID testing is negative per surgery. Monitor off antibiotics per ID recommendations. 08/06/2019. Patient with COVID-19 infection and acute respiratory failure on mechanical ventilation. Patient currently on AC mode, rate 14, tidal volume 500, FiO2 30% and PEEP of 6. Continue PSV trials as tolerated. Tracheostomy placement to be scheduled when COVID testing is negative per surgery. ID restarted antibiotics with cefepime 2 g IV every 8 hours to cover for presumed Pseudomonas pneumonia. Follow-up chest x-ray and blood cultures. Repeat COVID testing 07/28 and positive. Repeat test tomorrow. 08/07/19 Patient with Covid-19, acute respiratory failure. He is still intubated on mechanical ventilator. For tracheostomy when Covid-19 test negative. Still having fever. Leukocytosis worse today, WBC 30.3. For CT Chest, Abdomen. 08/08/19 patient with Covid-19, acute respiratory failure. He is still critically ill, intubated. He is for tracheostomy after Covid-19 test negative. Fever improving. Temp 99.[address] Chest and Abdomen done yesterday pending. 08/09/2019 patient with Covid-19 infection, acute resp failure. Still intubated on ventilator. Fever of 100.3 this morning. I discussed with his Nurse 08/10/2019 Patient with Covid-19 infection. acute respirator failure. patient still in critical condition, intubated. The high probability of a clinically significant, sudden or life threatening deterioration of the [respiratory, CVS, OVERLAY OPERATOR] system(s) required my full and direct attention, intervention and personal management. The aggregate critical care time was [36] minutes. This time is in addition to time spent performing reported procedures but includes the following: [x] Data Review and interpretation [x] Patient assessment and monitoring of vital signs [x] Documentation [x] Medication orders and management History Interval history: Patient with Covid-19 infection Still intubated Fever Hospitalist Physical - Physical exam Narrative exam: GEN: Not in acute distress, intubated HEENT: Normocephalic, atraumatic, Neck: supple, No JVD Lungs: Bilateral crackles, heart;S1 and S2 reg, no murmurs, rubs or gallop Abd:soft, non tender, non distended, normal bowel sounds,PEG tube Ext: No edema, no clubbing, no cyanosis, Neuro: Intubated, on ventilator,sedated - Constitutional Vitals: Temp Pulse Resp BP Pulse Ox 98.7 F 100 H 29 H 144/70 100 08/10/19 08:00 08/10/19 08:00 08/10/19 08:00 08/10/19 08:00 08/10/19 08:00 General appearance: Present: other (Orally intubated on vent) HEART Score - HEART Score Troponin: Troponin T 0.013 ng/mL (0.00-0.029) 07/04/19 07:05 Results - Labs CBC & Chem 7: 08/10/19 08:00 08/10/19 08:00 Labs: Laboratory Last Values WBC 16.9 K/mm3 (4.5-11.0) H 08/10/19 08:00 RBC 2.94 M/mm3 (3.65-5.03) L 08/10/19 08:00 Hgb 8.2 gm/dl (11.8-15.2) L 08/10/19 08:00 Hct 24.9 % (35.5-45.6) L 08/10/19 08:00 MCV 85 fl (84-94) 08/10/19 08:00 MCH 28 pg (28-32) 08/10/19 08:00 MCHC 33 % (32-34) 08/10/19 08:00 RDW 17.0 % (13.2-15.2) H 08/10/19 08:00 Plt Count 661 K/mm3 (140-440) H 08/10/19 08:00 Lymph % (Auto) 4.9 % (13.4-35.0) L 07/19/19 08:45 [place] % (Auto) 12.2 % (0.0-7.3) H 07/22/19 05:38 Eos % (Auto) 1.0 % (0.0-4.3) 07/19/19 08:45 Baso % (Auto) 0.5 % (0.0-1.8) 07/19/19 08:45 Lymph # 0.8 K/mm3 (1.2-5.4) L 07/19/19 08:45 [place] # 1.5 K/mm3 (0.0-0.8) H 07/22/19 05:38 Eos # 0.2 K/mm3 (0.0-0.4) 07/19/19 08:45 Baso # 0.1 K/mm3 (0.0-0.1) 07/19/19 08:45 Add Manual Diff Complete 08/08/19 04:41 Total Counted 100 08/08/19 04:41 Seg Neutrophils % 72.8 % (40.0-70.0) H 07/22/19 05:38 Seg Neuts % (Manual) 90.0 % (40.0-70.0) H 08/08/19 04:41 Band Neutrophils % 0 % 08/08/19 04:41 Lymphocytes % (Manual) 3.0 % (13.4-35.0) L 08/08/19 04:41 Reactive Lymphs % (Man) 0 % 08/08/19 04:41 Monocytes % (Manual) 6.0 % (0.0-7.3) 08/08/19 04:41 Eosinophils % (Manual) 1.0 % (0.0-4.3) 08/08/19 04:41 Basophils % (Manual) 0 % (0.0-1.8) 08/08/19 04:41 Metamyelocytes % 0 % 08/08/19 04:41 Myelocytes % 0 % 08/08/19 04:41 Promyelocytes % 0 % 08/08/19 04:41 Blast Cells % 0 % 08/08/19 04:41 Nucleated RBC % Not Reportable 08/08/19 04:41 Seg Neutrophils # 9.2 K/mm3 (1.8-7.7) H 07/22/19 05:38 Seg Neutrophils # Man 19.9 K/mm3 (1.8-7.7) H 08/08/19 04:41 Band Neutrophils # 0.0 K/mm3 08/08/19 04:41 Lymphocytes # (Manual) 0.7 K/mm3 (1.2-5.4) L 08/08/19 04:41 Abs React Lymphs (Man) 0.0 K/mm3 08/08/19 04:41 Monocytes # (Manual) 1.3 K/mm3 (0.0-0.8) H 08/08/19 04:41 Eosinophils # (Manual) 0.2 K/mm3 (0.0-0.4) 08/08/19 04:41 Basophils # (Manual) 0.0 K/mm3 (0.0-0.1) 08/08/19 04:41 Metamyelocytes # 0.0 K/mm3 08/08/19 04:41 Myelocytes # 0.0 K/mm3 08/08/19 04:41 Promyelocytes # 0.0 K/mm3 08/08/19 04:41 Blast Cells # 0.0 K/mm3 08/08/19 04:41 WBC Morphology Not Reportable 08/08/19 04:41 Hypersegmented Neuts Not Reportable 08/08/19 04:41 Hyposegmented Neuts Not Reportable 08/08/19 04:41 Hypogranular Neuts Not Reportable 08/08/19 04:41 Smudge Cells Not Reportable 08/08/19 04:41 Toxic Granulation Not Reportable 08/08/19 04:41 Toxic Vacuolation Not Reportable 08/08/19 04:41 Dohle Bodies Not Reportable 08/08/19 04:41 Pelger-Huet Anomaly Not Reportable 08/08/19 04:41 Mendy Rods Not Reportable 08/08/19 04:41 Platelet Estimate Consistent w auto 08/08/19 04:41 Clumped Platelets Not Reportable 08/08/19 04:41 Plt Clumps, EDTA Not Reportable 08/08/19 04:41 Large Platelets Not Reportable 08/08/19 04:41 Giant Platelets Not Reportable 08/08/19 04:41 Platelet Satelliting Not Reportable 08/08/19 04:41 Plt Morphology Comment Not Reportable 08/08/19 04:41 RBC Morphology Not Reportable 08/08/19 04:41 Dimorphic RBCs Not Reportable 08/08/19 04:41 Polychromasia Not Reportable 08/08/19 04:41 Hypochromasia Few 08/08/19 04:41 Poikilocytosis Not Reportable 08/08/19 04:41 Anisocytosis Rare 08/08/19 04:41 Microcytosis Rare 08/08/19 04:41 Macrocytosis Not Reportable 08/08/19 04:41 Spherocytes Not Reportable 08/08/19 04:41 Pappenheimer Bodies Not Reportable 08/08/19 04:41 Sickle Cells Not Reportable 08/08/19 04:41 Target Cells Not Reportable 08/08/19 04:41 Tear Drop Cells Not Reportable 08/08/19 04:41 Ovalocytes Rare 08/08/19 04:41 Stomatocytes Few 08/01/19 04:57 Helmet Cells Not Reportable 08/08/19 04:41 Altman-Kelayres Bodies Not Reportable 08/08/19 04:41 Whiting Rings Not Reportable 08/08/19 04:41 Joanne Cells Not Reportable 08/08/19 04:41 Bite Cells Not Reportable 08/08/19 04:41 Crenated Cell Not Reportable 08/08/19 04:41 Elliptocytes Not Reportable 08/08/19 04:41 Acanthocytes (Spur) Not Reportable 08/08/19 04:41 Rouleaux Not Reportable 08/08/19 04:41 Hemoglobin C Crystals Not Reportable 08/08/19 04:41 Schistocytes Rare 08/08/19 04:41 Malaria parasites Not Reportable 08/08/19 04:41 Jeevan Bodies Not Reportable 08/08/19 04:41 Hem Pathologist Commnt No 08/08/19 04:41 PT 16.0 Sec. (12.2-14.9) H 07/03/19 22:20 INR 1.26 (0.87-1.13) H 07/03/19 22:20 D-Dimer 1808.06 ng/mlDDU (0-234) H 08/07/19 10:24 ABG pH 7.445 pH Units (7.350-7.450) 08/07/19 11:10 ABG pCO2 50.5 mm Hg 08/07/19 11:10 ABG pO2 73.3 mm Hg (80.0-90.0) L 08/07/19 11:10 ABG HCO3 33.9 mmol/L (20.0-26.0) H 08/07/19 11:10 ABG O2 Saturation 96.5 % (95.0-99.0) 08/07/19 11:10 ABG O2 Content 8.5 (0.0-44) 08/07/19 11:10 ABG Base Excess 9.0 mmol/L (-2.0-3.0) H 08/07/19 11:10 ABG Hemoglobin 6.3 gm/dl (14.0-18.0) L 08/07/19 11:10 ABG Carboxyhemoglobin 1.9 % (0.0-5.0) 08/07/19 11:10 ABG Methemoglobin 0.4 % (0.0-1.5) 08/07/19 11:10 Oxyhemoglobin 94.3 % (95.0-99.0) L 08/07/19 11:10 FiO2 30 % 08/07/19 11:10 Sodium 138 mmol/L (137-145) 08/10/19 08:00 Potassium 4.1 mmol/L (3.6-5.0) 08/10/19 08:00 Chloride 101.8 mmol/L (98-107) 08/10/19 08:00 Carbon Dioxide 29 mmol/L (22-30) 08/10/19 08:00 Anion Gap 11 mmol/L 08/10/19 08:00 BUN 11 mg/dL (9-20) 08/10/19 08:00 Creatinine 0.3 mg/dL (0.8-1.5) L 08/10/19 08:00 Estimated GFR > 60 ml/min 08/10/19 08:00 BUN/Creatinine Ratio 37 % 08/10/19 08:00 Glucose 116 mg/dL (75-100) H 08/10/19 08:00 POC Glucose 148 (70-105) H 08/10/19 05:47 Osmolality 268 Mosm/kg 07/05/19 04:00 Lactic Acid 3.30 mmol/L (0.7-2.0) H* 07/04/19 07:05 Uric Acid 7.2 mg/dL (3.5-7.6) 07/05/19 04:00 Calcium 7.7 mg/dL (8.4-10.2) L 08/10/19 08:00 Phosphorus 3.60 mg/dL (2.5-4.5) 07/05/19 04:00 Magnesium 1.80 mg/dL (1.7-2.3) 07/11/19 05:14 Iron 9 ug/dL (49-181) L 07/04/19 07:05 TIBC 97 mcg/dL (250-450) L 07/04/19 07:05 Ferritin 360.4 ng/mL (13.0-400.0) 08/07/19 10:24 Total Bilirubin 0.20 mg/dL (0.1-1.2) 07/04/19 07:05 AST 73 units/L (5-40) H 07/04/19 07:05 ALT 91 units/L (7-56) H 07/04/19 07:05 Alkaline Phosphatase 114 units/L (35-129) 07/04/19 07:05 Ammonia 35.0 umol/L (25-60) 07/03/19 23:58 Lactate Dehydrogenase 144 units/L (91-180) 08/07/19 10:24 Troponin T 0.013 ng/mL (0.00-0.029) 07/04/19 07:05 C-Reactive Protein 11.10 mg/dL (0.00-1.30) H 08/07/19 10:24 Total Protein 5.5 g/dL (6.3-8.2) L 07/04/19 07:05 Albumin 1.6 g/dL (3.9-5) L 07/31/19 04:42 Albumin/Globulin Ratio 0.6 % 07/04/19 07:05 Prealbumin 0.037 g/L (0.200-0.400) L 07/31/19 04:42 Triglycerides 33 mg/dL (2-149) 07/03/19 19:57 Cholesterol 47 mg/dL (50-199) L 07/03/19 19:57 LDL Cholesterol Direct 25 mg/dL (50-130) L 07/03/19 19:57 HDL Cholesterol 20 mg/dL (40-59) L 07/03/19 19:57 Cholesterol/HDL Ratio 2.35 % 07/03/19 19:57 Procalcitonin 0.96 ng/mL (<0.15) 08/07/19 10:24 TSH 2.170 mlU/mL (0.270-4.200) 07/03/19 22:20 Total Cortisol 28.0 mcg/dL () 07/05/19 10:11 Urine Color Yellow (Yellow) 07/29/19 11:57 Urine Turbidity Clear (Clear) 07/29/19 11:57 Urine pH 7.0 (5.0-7.0) 07/29/19 11:57 Ur Specific [place] 1.012 (1.003-1.030) 07/29/19 11:57 Urine Protein <15 mg/dl mg/dL (Negative) 07/29/19 11:57 Urine Glucose (UA) Neg mg/dL (Negative) 07/29/19 11:57 Urine Ketones Neg mg/dL (Negative) 07/29/19 11:57 Urine Blood Sm (Negative) 07/29/19 11:57 Urine Nitrite Neg (Negative) 07/29/19 11:57 Urine Bilirubin Neg (Negative) 07/29/19 11:57 Urine Urobilinogen 4.0 mg/dL (<2.0) 07/29/19 11:57 Ur Leukocyte Esterase Mod (Negative) 07/29/19 11:57 Urine WBC (Auto) 63.0 /HPF (0.0-6.0) H 07/29/19 11:57 Urine RBC (Auto) 14.0 /HPF (0.0-6.0) 07/29/19 11:57 U Epithel Cells (Auto) < 1.0 /HPF (0-13.0) 07/29/19 11:57 Urine Bacteria (Auto) 1+ /HPF (Negative) 07/29/19 11:57 Urine WBC Clumps Few /HPF 07/03/19 21:13 Urine Mucus Few /HPF 07/03/19 21:13 Urine Osmolality 293 Mosm/kg 07/05/19 08:15 Vancomycin Trough 23.2 ug/mL (5.0-20.0) H 07/05/19 17:54 Urine Opiates Screen Presumptive negative 07/03/19 21:13 Urine Methadone Screen Presumptive negative 07/03/19 21:13 Ur Barbiturates Screen Presumptive negative 07/03/19 21:13 Ur Phencyclidine Scrn Presumptive negative 07/03/19 21:13 Ur Amphetamines Screen Presumptive negative 07/03/19 21:13 U Benzodiazepines Scrn Presumptive negative 07/03/19 21:13 Urine Cocaine Screen Presumptive negative 07/03/19 21:13 U Marijuana (THC) Screen Presumptive negative 07/03/19 21:13 Drugs of Abuse Note Disclamer 07/03/19 21:13 Plasma/Serum Alcohol < 0.01 % (0-0.07) 07/03/19 23:58 Coronavirus (PCR) Positive (Negative) A 07/29/19 Unknown Hepatitis A IgM Ab Non-reactive (NonReactive) 08/07/19 10:24 Hep Bs Antigen Non-reactive (Negative) 08/07/19 10:24 Hep B Core IgM Ab Non-reactive (NonReactive) 08/07/19 10:24 Hepatitis C Antibody Non-reactive (NonReactive) 08/07/19 10:24 Blood Type B POSITIVE 08/09/19 17:59 Antibody Screen Negative 08/09/19 17:59 Crossmatch See Detail 08/09/19 17:59 Microbiology: Microbiology 08/06/19 10:18 Peripheral/Venous Blood Culture - Preliminary NO GROWTH AFTER 72 HOURS 08/06/19 11:07 Peripheral/Venous Blood Culture - Preliminary NO GROWTH AFTER 72 HOURS Wright/IV: Voiding Method Indwelling Catheter IV Catheter Type [Left INT / Saline Lock Antecubital] IV Catheter Type [Left Forearm Peripheral IV ] IV Catheter Type [Left Upper Mid-line arm] IV Catheter Type [Right INT / Saline Lock Forearm] IV Catheter Type [Right Hand] INT / Saline Lock IV Catheter Type [Right CVL Femoral] IV Catheter Type [Left INT / Saline Lock External Jugular] Active Medications - Current Medications Current Medications: Generic Name Dose Route Start Last Admin Trade Name Freq PRN Reason Stop Dose Admin Acetaminophen 650 mg 07/04/19 04:24 08/05/19 17:40 Tylenol SD 650 mg Q6H PRN Administration Pain MILD(1-3)/Fever >100.5/MURO Acetaminophen 650 mg 07/10/19 04:00 08/06/19 23:43 Tylenol PO 650 mg Q6HR PRN Administration Pain, Mild (1-3) FEVER Lipase/Protease/Amylase 1 each 07/04/19 10:04 07/20/19 06:[address] 10,500 Unit FEEDTUBE 1 each PRN PRN Administration For Clogged Feeding Tube Aspirin 81 mg 07/05/19 10:00 08/09/19 11:40 Baby Aspirin PO 81 mg QDAY TAMMIE Administration Dextrose 50 ml 07/04/19 06:54 D50w (25gm) Syringe IV Q30MIN PRN Hypoglycemia Protocol Docusate Sodium 100 mg 07/10/19 10:00 08/09/19 22:08 Colace PO 100 mg BID TAMMIE Administration Enoxaparin Sodium 40 mg 07/24/19 10:00 08/09/19 11:40 Enoxaparin SUB-Q 40 mg QDAY@1000 TAMMIE Administration Famotidine 20 mg 07/23/19 22:00 08/09/19 22:08 Pepcid PO 20 mg BID TAMMIE Administration Fentanyl 50 mcg 07/21/19 15:18 08/09/19 17:44 Sublimaze IV 50 mcg Q10MIN PRN Administration ANALGESIA Fentanyl 25 mcg 08/03/19 11:00 08/09/19 11:43 Duragesic TD 25 mcg Q3D TAMMIE Administration Folic Acid 1 mg 07/05/19 10:00 08/09/19 11:40 Folvite PO 1 mg QDAY TAMMIE Administration Hydrophilic Ointment 1 applic 07/03/19 19:56 07/05/19 17:42 Vaseline Lip Therapy TP 1 applic Q2HR PRN Administration Dry Lips Norepinephrine 4 mg in 250 mls @ 7.5 mls/hr 07/03/19 23:00 07/20/19 01:00 Levophed Drip 4 Mg/Ns 250 Ml IV Infused TITR TAMMIE Titration Protocol 2 MCG/MIN Piperacillin Sod/Tazobactam Sod 4.5 gm in 100 mls @ 200 mls/hr 08/06/19 12:00 08/10/19 05:29 Zosyn/Ns 4.5gm/100ml IV 200 mls/hr Q6HR TAMMIE Administration Protocol Sodium Chloride 500 mls @ 0 mls/hr 08/09/19 17:07 Nacl 0.9% 500 Ml IV ONCE TAMMIE As Directed Sodium Chloride 500 mls @ 0 mls/hr 08/09/19 18:56 Nacl 0.9% 500 Ml IV ONCE TAMMIE As Directed Insulin Human Lispro 0 unit 07/07/19 12:00 08/10/19 05:34 Humalog SUB-Q Not Given Q6HR TAMMIE Protocol Levetiracetam 750 mg 07/06/19 11:00 08/09/19 22:07 Keppra FEEDTUBE 750 mg Q12HR TAMMIE Administration Metoprolol Tartrate 5 mg 07/12/19 15:08 07/29/19 07:30 Metoprolol IV 5 mg Q6HR PRN Administration Tachyarrhythmias Multi-Ingred Cream/Lotion/Oil/Oint 1 applic 07/03/19 19:56 07/05/19 13:19 Artificial Tears Ophth Oint OU 1 applic Q4HR PRN Administration Dry Eye(s) Naloxone HCl 0.1 mg 07/04/19 04:24 Naloxone IV Q2MIN PRN Res Rate </= 8 or 02 SAT < 92% Oxycodone/Acetaminophen 1 tab 04/30/20 14:17 Percocet 5/325 PO Q4H PRN Pain, Moderate (4-6) Scopolamine 1 each 07/10/19 11:00 08/09/19 11:43 Transderm-Scop TD 1 each Q3D TAMMIE Administration Simple Syrup 15 ml 07/04/19 10:04 07/10/19 21:56 Simple Syrup FEEDTUBE 15 ml PRN PRN Administration Hypoglycemia Simple Syrup 30 ml 07/04/19 10:04 Simple Syrup FEEDTUBE PRN PRN Hypoglycemia Sodium Bicarbonate 325 mg 07/04/19 10:04 07/20/19 10:20 Sodium Bicarbonate FEEDTUBE 325 mg PRN PRN Administration For Clogged Feeding Tube Sodium Chloride 10 ml 07/04/19 10:00 08/09/19 22:08 Sodium Chloride Flush Syringe 10 Ml IV 10 ml BID TAMMIE Administration Sodium Chloride 10 ml 07/04/19 04:24 Sodium Chloride Flush Syringe 10 Ml IV PRN PRN LINE FLUSH Sodium Hypochlorite 1 applic 07/10/19 14:00 08/09/19 22:00 Dakin's Half Strength TP Not Given BID TAMMIE Nutrition/Malnutrition Assess - Dietary Evaluation Nutrition/Malnutrition Findings: Nutrition Notes Start: 07/04/19 09:17 Freq: Status: Active Protocol: Document 08/10/19 08:21 LP (Rec: 08/10/19 08:25 LP [id number]) Nutrition Notes Initial or Follow up Reassessment Current Diagnosis Acute Kidney Injury,COPD, Decubitus(Pressure Ulcer), Diabetes,Hypertension Other Pertinent Diagnosis COVID-19 (+), pneu, seizures, schizophrenia, Buttock and R foot PU, Current Diet Osmolite 1.5 at 55ml/hr Labs/Tests Reviewed Pertinent Medications Reviewed Height 5 ft 11 in Weight 92 kg [place] Body Weight (kg) 78.18 BMI 28.3 Weight Status Overweight Subjective/Other Information Pt tolerating TF at goal rate. Pt waiting to get trach and PEG placed. Percent of energy/protein needs met: 97%/75% Burn Absent Trauma Absent Current % PO Negligible Minimum of two criteria No physical signs of malnutrition #2 Nutrition Diagnosis Increased nutrient needs ( specify in comment below) Diagnosis Progress(for reassessment Continues documentation) #1 Nutrition Diagnosis Inadequate oral intake Diagnosis Progress(for reassessment Continues documentation) Is patient on ventilator? Yes Is Patient Ambulatory and/or Out of Bed No REE-([facility] [place]-confined to bed) 0.172 Calculation Used for Recommendations [facility] Additional Notes Protein: 110-184 (1.2-2g/kg) Fluid: 1 ml/kcal or per MD Nutrition Intervention Change Diet Order: Continue TF Nutrition Support: Osmolite 1.5 at 55ml/hr Flush 50ml q4h for hyponatremia Flush 150 once resolved Kcal 1,980 Protein (gm) 83 Fluid (mL) 1,006 Goal #1 TF tolerance Goal #2 TF to meet at least 75% of energy and protein needs Anticipated Discharge Needs: unable to determine at this time Follow-Up By: 08/15/19 Additional Comments Follow for TF
[2019-08-10] MEDS: levETIRAcetam 500 MG/5 ML ORAL LIQD FEEDTUBE SCH ×2 (10:50→23:32)
[2019-08-10] MEDS: ENOXAPARIN 40 MG/0.4 ML INJ SUB-Q SCH (10:50)
[2019-08-10] MEDS: ASPIRIN 81 MG TAB CHEW PO SCH (10:50)
[2019-08-10] MEDS: FOLIC ACID 1 MG TAB PO SCH (10:50)
[2019-08-10] MEDS: FAMOTIDINE 20 MG TAB PO SCH ×2 (10:50→23:31)
[2019-08-10] MEDS: DOCUSATE SODIUM 100 MG/10 ML ORAL LIQD PO SCH ×2 (10:50→23:32)
[2019-08-10] MEDS: SODIUM HYPOCHLORITE, DAKIN'S 1/2 STRENGTH (0.25%) 473 ML TOPICAL SOLN TP SCH ×2 (11:50→23:45)
--- NOTE | 2019-08-10 13:45 | Progress Note ---
Assessment and Plan 69 yo M status post excisional debridement of left ischial and sacral wound, postop day 1 1. VDRF 2. COVID+ PNA 3. Worsening leukocytosis 4. Osteomyelitis of left ischium and sacrum, along with stage IV decubitus ulcers 5. Bedbound 6. Protein calorie malnutrition Patient stable. He responded appropriately to 2 units of PRBC transfusion yesterday. His vital signs are stable. Plan: 1. continue vent management per ICU team 2. Continue antibiotics per ID 3. Continue wound care as ordered 4. Offloading 5. Optimize nutrition -tube feeds 6. Sacral wound culture pending 7. I have discussed with the patient's that I do not feel his wounds will heal due to the patient's multiple active and chronic medical issues and will likely continue to deteriorate. She understands however is adamant to continue all aggressive medical and surgical therapy despite the patient's poor prognosis. She does not seem to be accepting of the fact that the patient has significantly declined over the last several months. 8. Tracheostomy planning pending repeat COVID testing. Will follow PRN. Please call when repeat COVID testing is negative. Thank you. Subjective Date of service: 08/10/19 Narrative: Patient seen and examined. Received 2 units of PRBCs yesterday evening. Status post debridement of left ischial and sacral wounds. Objective Vital Signs - 12hr 08/10/19 08/10/19 08/10/19 02:00 02:20 03:00 Temperature Pulse Rate 91 H 91 H 101 H Pulse Rate [ From Monitor] Respiratory 15 18 Rate Blood Pressure 135/79 115/66 O2 Sat by Pulse 100 99 100 Oximetry 08/10/19 08/10/19 08/10/19 03:33 04:00 04:16 Temperature 97.7 F Pulse Rate 103 H 99 H Pulse Rate [ From Monitor] Respiratory 18 Rate Blood Pressure 135/79 135/79 O2 Sat by Pulse 100 100 Oximetry 08/10/19 08/10/19 08/10/19 05:00 06:00 06:24 Temperature Pulse Rate 110 H 90 91 H Pulse Rate [ From Monitor] Respiratory 26 H 17 Rate Blood Pressure 128/73 122/61 O2 Sat by Pulse 95 100 99 Oximetry 08/10/19 08/10/19 08/10/19 07:00 08:00 09:00 Temperature 98.7 F Pulse Rate 87 99 H 118 H Pulse Rate [ 97 H From Monitor] Respiratory 15 22 34 H Rate Blood Pressure 119/65 125/78 143/74 O2 Sat by Pulse 100 100 100 Oximetry 08/10/19 08/10/19 08/10/19 10:00 11:00 12:00 Temperature 98.2 F Pulse Rate 109 H 100 H 112 H Pulse Rate [ 93 H From Monitor] Respiratory 28 H 27 H 35 H Rate Blood Pressure 151/85 155/88 162/95 O2 Sat by Pulse 99 100 100 Oximetry - General physical appearance Narrative Exam: General: Intubated, unresponsive ENT: ET tube in place CV: S1, S2 present Respiratory: On vent Extremities: Contracted, edema of bilateral upper and lower extremities. Skin: Left ischial wound dressing removed and 1 piece of gauze packing removed from wound. The wound bed is clean. No bleeding. The wound was repacked with 1 piece of Dakin's moistened 4 x 4 gauze, covered with a foam dressing. Sacral wound dressing removed and all packing removed from wound. 1 piece of quick clot dressing removed as well as Surgicel. The wound bed is hemostatic. There is no evidence of active bleeding. There is slough overlying ap proximately 5% of the wound towards the inferior portion. The remainder of the wound bed is pink. The wound was packed with 1 piece of Dakin's moistened Kerlix, covered with a sacral foam dressing. - Labs 08/10/19 08:00 08/10/19 08:00 Diabetes panel 08/10/19 Range/Units 08:00 Sodium 138 (137-145) mmol/L Potassium 4.1 (3.6-5.0) mmol/L Chloride 101.8 (98-107) mmol/L Carbon Dioxide 29 (22-30) mmol/L BUN 11 (9-20) mg/dL Creatinine 0.3 L (0.8-1.5) mg/dL Glucose 116 H (75-100) mg/dL Calcium 7.7 L (8.4-10.2) mg/dL Calcium panel 08/10/19 Range/Units 08:00 Calcium 7.7 L (8.4-10.2) mg/dL Pituitary panel 08/10/19 Range/Units 08:00 Sodium 138 (137-145) mmol/L Potassium 4.1 (3.6-5.0) mmol/L Chloride 101.8 (98-107) mmol/L Carbon Dioxide 29 (22-30) mmol/L BUN 11 (9-20) mg/dL Creatinine 0.3 L (0.8-1.5) mg/dL Glucose 116 H (75-100) mg/dL Calcium 7.7 L (8.4-10.2) mg/dL Adrenal panel 08/10/19 Range/Units 08:00 Sodium 138 (137-145) mmol/L Potassium 4.1 (3.6-5.0) mmol/L Chloride 101.8 (98-107) mmol/L Carbon Dioxide 29 (22-30) mmol/L BUN 11 (9-20) mg/dL Creatinine 0.3 L (0.8-1.5) mg/dL Glucose 116 H (75-100) mg/dL Calcium 7.7 L (8.4-10.2) mg/dL
--- NOTE | 2019-08-10 17:50 | Progress Note ---
Assessment and Plan Acute hypoxemic respiratory failure on MVS Severe sepsis with Shock. Bilateral Pneumonia. PUI coronavirus-19 infection. Acute possibly on chronic encephalopathy. Oropharyngeal dysphagia. Anemia. Decubitus ulcers Diabetes type 2. Hypertension. Leukocytosis. Anemia that is microcytic. Elevated serum transaminases. [id number] metabolic acidosis. Lactic acidosis. Severe protein-calorie malnutrition ( has advised us she wants a tracheostomy and continued aggressive care) - follow H&H post transfusion - no new issues otherwise, continue care as below - repeat COVID-19 testing pending - surgery evaluation ongoing for tracheostomy placement (await negative COVID test) - continue care as below otherwise - continue fentanyl gtt for pain control / sedation - continue to wean supplemental oxygen for target O2 sat's > 90% acutely - continue daily SAT's and SBT assessment as tolerated - VAP bundle addressed - continue lung protective strategies - continue bronchodilators with pulmonary hygiene per RT - wean per pulmonary driven protocols otherwise - prn Levophed for target MAP > 65 mmHg - continue airborne and contact COVID-19 precautions - COVID-19 test positive - complete anti-infectives and de-escalate per ID recommendations - continue wound care per WCT - sedation prn for target RASS 0 to -1 - accuchecks with glycemic control per SSI (While critically ill target blood glucose of 140-180 mg/dL; avoid hypoglycemia) - to avoid benzodiazepine's, reduce the possibility of delirium - prn analgesia per CPOT score - Maintenance of sleep-wake cycle, avoid delirium - continue enteral nutritional support at goal rate as tolerated - G.I. & VTE prophylaxis - PT/OT/ROM exercises - continue mobility protocols for pressure ulcer prophylaxis - Monitor hemodynamics closely - continue other care per attending / other consultants - discharge planning ongoing concurrently .... Re-evaluate in am & prn CONDITION: CRITICAL PROGNOSIS: GUARDED CODE STATUS: FULL CODE The high probability of a clinically significant, sudden or life-threatening deterioration of the [respiratory & cardiovascular] system(s) required my full and direct attention, intervention and personal management. The aggregate critical care time was [35] minutes without overlap. Time includes spent on; [x] Data Review and interpretation [x] Patient assessment and monitoring of vital signs [x] Documentation [x] Medication orders and management Subjective Date of service: 08/10/19 Principal diagnosis: Bilateral pneumonia, severe sepsis with septic shock, encephalopathy Interval history: Patient is seen today for: Ac hypoxemic Resp failure on MVS; Severe sepsis with Shock; Ivan. Pneumonia; PUI coronavirus-19 infection. Seen and examined at bedside; 24hour events reviewed; nursing and respiratory care staff consulted; no adverse overnight events reported to me; resting in bed; remains on MVS; AMS is persistent; receive PRBC transfusion; weaning tenuously Objective Vital Signs - 12hr 08/10/19 08/10/19 08/10/19 06:00 06:24 07:00 Temperature Pulse Rate 90 91 H 87 Pulse Rate [ From Monitor] Respiratory 17 15 Rate Blood Pressure 122/61 119/65 O2 Sat by Pulse 100 99 100 Oximetry 08/10/19 08/10/19 08/10/19 08:00 09:00 10:00 Temperature 98.7 F Pulse Rate 99 H 118 H 109 H Pulse Rate [ 97 H From Monitor] Respiratory 22 34 H 28 H Rate Blood Pressure 125/78 143/74 151/85 O2 Sat by Pulse 100 100 99 Oximetry 08/10/19 08/10/19 08/10/19 11:00 12:00 13:00 Temperature 98.2 F Pulse Rate 100 H 99 H 97 H Pulse Rate [ 93 H From Monitor] Respiratory 27 H 35 H 24 Rate Blood Pressure 155/88 165/90 146/75 O2 Sat by Pulse 100 99 100 Oximetry 08/10/19 08/10/19 08/10/19 14:00 15:00 16:00 Temperature 97.4 F L Pulse Rate 101 H 94 H 98 H Pulse Rate [ 97 H From Monitor] Respiratory 30 H 21 25 H Rate Blood Pressure 155/99 151/82 166/84 O2 Sat by Pulse 100 100 100 Oximetry 08/10/19 17:00 Temperature Pulse Rate 97 H Pulse Rate [ From Monitor] Respiratory 21 Rate Blood Pressure 146/76 O2 Sat by Pulse 100 Oximetry Constitutional: appears uncomfortable, other (eelderly and chronically ill looking AAM, normocep[krystina;ic with mildly increased respiratory effort at rest) Eyes: non-icteric ENT: oropharynx moist, other (ETT 24 cm Pawan) Neck: supple, no lymphadenopathy, no JVD Effort: very labored Ascultation: Bilateral: diminished breath sounds, rhonchi Percussion: Bilateral: not dull Cardiovascular: regular rate and rhythm Gastrointestinal: normoactive bowel sounds, soft, non-tender, non-distended, other (+ PEG tube with mild TF leakage) Integumentary: decubitus ulcer (sacral) Extremities: no cyanosis, no edema, pink and warm, pulses normal Neurologic: unable to assess Psychiatric: other (Unable to assess re: AMS) CBC and BMP: 08/12/19 03:30 08/12/19 03:30 ABG, PT/INR, D-dimer: ABG ABG pH 7.445 pH Units (7.350-7.450) 08/07/19 11:10 ABG pCO2 50.5 mm Hg 08/07/19 11:10 ABG pO2 73.3 mm Hg (80.0-90.0) L 08/07/19 11:10 ABG O2 Saturation 96.5 % (95.0-99.0) 08/07/19 11:10 PT/INR, D-dimer PT 16.0 Sec. (12.2-14.9) H 07/03/19 22:20 INR 1.26 (0.87-1.13) H 07/03/19 22:20 D-Dimer 1808.06 ng/mlDDU (0-234) H 08/07/19 10:24 Abnormal lab findings: Abnormal Labs 07/03/19 07/03/19 07/03/19 19:57 21:10 21:13 WBC RBC Hgb Hct MCV MCH MCHC RDW Plt Count Lymph % (Auto) [place] % (Auto) Lymph # [place] # Baso # Seg Neutrophils % Seg Neuts % (Manual) Lymphocytes % (Manual) Monocytes % (Manual) Nucleated RBC % Seg Neutrophils # Seg Neutrophils # Man Lymphocytes # (Manual) Monocytes # (Manual) Basophils # (Manual) PT INR D-Dimer ABG pH 7.238 L ABG pO2 210.8 H ABG HCO3 15.4 L ABG O2 Saturation 99.2 H ABG Base Excess -11.1 L ABG Hemoglobin 8.0 L Oxyhemoglobin Sodium 124 L Potassium Chloride 92.9 L Carbon Dioxide 10 L BUN 23 H Creatinine 0.5 L Glucose 118 H POC Glucose Lactic Acid Calcium 7.0 L Magnesium Iron TIBC Ferritin AST 70 H ALT 88 H Lactate Dehydrogenase Troponin T 0.032 H C-Reactive Protein Total Protein 5.0 L Albumin 1.8 L Prealbumin Cholesterol 47 L LDL Cholesterol Direct 25 L HDL Cholesterol 20 L Urine WBC (Auto) 12.0 H Vancomycin Trough Coronavirus (PCR) Crossmatch 07/03/19 07/03/19 07/03/19 22:20 22:20 22:20 WBC 30.5 H RBC 2.96 L Hgb 7.7 L Hct 23.9 L MCV 81 L MCH 26 L MCHC RDW 18.6 H Plt Count 459 H Lymph % (Auto) [place] % (Auto) Lymph # [place] # Baso # Seg Neutrophils % Seg Neuts % (Manual) 93.0 H Lymphocytes % (Manual) 0.5 L Monocytes % (Manual) Nucleated RBC % Seg Neutrophils # Seg Neutrophils # Man 28.4 H Lymphocytes # (Manual) 0.2 L Monocytes # (Manual) Basophils # (Manual) PT 16.0 H INR 1.26 H D-Dimer ABG pH ABG pO2 ABG HCO3 ABG O2 Saturation ABG Base Excess ABG Hemoglobin Oxyhemoglobin Sodium Potassium Chloride Carbon Dioxide BUN Creatinine Glucose POC Glucose Lactic Acid 6.90 H* Calcium Magnesium Iron TIBC Ferritin AST ALT Lactate Dehydrogenase Troponin T C-Reactive Protein Total Protein Albumin Prealbumin Cholesterol LDL Cholesterol Direct HDL Cholesterol Urine WBC (Auto) Vancomycin Trough Coronavirus (PCR) Crossmatch 07/03/19 07/04/19 07/04/19 23:58 05:15 07:05 WBC 17.1 H RBC 3.22 L Hgb 8.3 L Hct 25.4 L MCV 79 L MCH 26 L MCHC RDW 18.6 H Plt Count Lymph % (Auto) [place] % (Auto) Lymph # [place] # Baso # Seg Neutrophils % Seg Neuts % (Manual) 74.0 H Lymphocytes % (Manual) 0 L Monocytes % (Manual) Nucleated RBC % Seg Neutrophils # Seg Neutrophils # Man 12.7 H Lymphocytes # (Manual) 0.0 L Monocytes # (Manual) Basophils # (Manual) PT INR D-Dimer ABG pH 7.310 L ABG pO2 73.2 L ABG HCO3 17.8 L ABG O2 Saturation 93.8 L ABG Base Excess -7.7 L ABG Hemoglobin 9.6 L Oxyhemoglobin 92.3 L Sodium Potassium Chloride Carbon Dioxide BUN Creatinine Glucose POC Glucose Lactic Acid 7.10 H* Calcium Magnesium Iron TIBC Ferritin AST ALT Lactate Dehydrogenase Troponin T C-Reactive Protein Total Protein Albumin Prealbumin Cholesterol LDL Cholesterol Direct HDL Cholesterol Urine WBC (Auto) Vancomycin Trough Coronavirus (PCR) Crossmatch 07/04/19 07/04/19 07/04/19 07:05 07:05 07:05 WBC RBC Hgb Hct MCV MCH MCHC RDW Plt Count Lymph % (Auto) [place] % (Auto) Lymph # [place] # Baso # Seg Neutrophils % Seg Neuts % (Manual) Lymphocytes % (Manual) Monocytes % (Manual) Nucleated RBC % Seg Neutrophils # Seg Neutrophils # Man Lymphocytes # (Manual) Monocytes # (Manual) Basophils # (Manual) PT INR D-Dimer ABG pH ABG pO2 ABG HCO3 ABG O2 Saturation ABG Base Excess ABG Hemoglobin Oxyhemoglobin Sodium 120 L Potassium 5.1 H Chloride 90.0 L Carbon Dioxide 14 L BUN 26 H Creatinine 0.5 L Glucose POC Glucose Lactic Acid 3.30 H* Calcium 8.0 L Magnesium Iron 9 L TIBC 97 L Ferritin AST 73 H ALT 91 H Lactate Dehydrogenase Troponin T C-Reactive Protein Total Protein 5.5 L Albumin 2.0 L Prealbumin Cholesterol LDL Cholesterol Direct HDL Cholesterol Urine WBC (Auto) Vancomycin Trough Coronavirus (PCR) Crossmatch 07/04/19 07/04/19 07/04/19 09:39 09:39 09:39 WBC RBC Hgb Hct MCV MCH MCHC RDW Plt Count Lymph % (Auto) [place] % (Auto) Lymph # [place] # Baso # Seg Neutrophils % Seg Neuts % (Manual) Lymphocytes % (Manual) Monocytes % (Manual) Nucleated RBC % Seg Neutrophils # Seg Neutrophils # Man Lymphocytes # (Manual) Monocytes # (Manual) Basophils # (Manual) PT INR D-Dimer 1419.14 H ABG pH ABG pO2 ABG HCO3 ABG O2 Saturation ABG Base Excess ABG Hemoglobin Oxyhemoglobin Sodium Potassium Chloride Carbon Dioxide BUN Creatinine Glucose POC Glucose Lactic Acid Calcium Magnesium Iron TIBC Ferritin 1719.0 H AST ALT Lactate Dehydrogenase 234 H Troponin T C-Reactive Protein 15.50 H Total Protein Albumin Prealbumin Cholesterol LDL Cholesterol Direct HDL Cholesterol Urine WBC (Auto) Vancomycin Trough Coronavirus (PCR) Crossmatch 07/04/19 07/04/19 07/04/19 10:09 18:08 18:28 WBC RBC Hgb Hct MCV MCH MCHC RDW Plt Count Lymph % (Auto) [place] % (Auto) Lymph # [place] # Baso # Seg Neutrophils % Seg Neuts % (Manual) Lymphocytes % (Manual) Monocytes % (Manual) Nucleated RBC % Seg Neutrophils # Seg Neutrophils # Man Lymphocytes # (Manual) Monocytes # (Manual) Basophils # (Manual) PT INR D-Dimer ABG pH ABG pO2 ABG HCO3 ABG O2 Saturation ABG Base Excess ABG Hemoglobin Oxyhemoglobin Sodium 117 L* Potassium 5.6 H Chloride 90.3 L Carbon Dioxide 16 L BUN 28 H Creatinine 0.5 L Glucose 58 L POC Glucose 65 L Lactic Acid Calcium 8.2 L Magnesium Iron TIBC Ferritin AST ALT Lactate Dehydrogenase Troponin T C-Reactive Protein Total Protein Albumin Prealbumin Cholesterol LDL Cholesterol Direct HDL Cholesterol Urine WBC (Auto) Vancomycin Trough Coronavirus (PCR) Positive A Crossmatch 07/04/19 07/04/19 07/04/19 23:45 Unknown Unknown WBC RBC Hgb Hct MCV MCH MCHC RDW Plt Count Lymph % (Auto) [place] % (Auto) Lymph # [place] # Baso # Seg Neutrophils % Seg Neuts % (Manual) Lymphocytes % (Manual) Monocytes % (Manual) Nucleated RBC % Seg Neutrophils # Seg Neutrophils # Man Lymphocytes # (Manual) Monocytes # (Manual) Basophils # (Manual) PT INR D-Dimer 759.77 H ABG pH ABG pO2 ABG HCO3 ABG O2 Saturation ABG Base Excess ABG Hemoglobin Oxyhemoglobin Sodium 122 L Potassium Chloride 93.0 L Carbon Dioxide 19 L BUN 27 H Creatinine 0.5 L Glucose POC Glucose Lactic Acid Calcium 8.3 L Magnesium Iron TIBC Ferritin 1301.0 H AST ALT Lactate Dehydrogenase Troponin T C-Reactive Protein Total Protein Albumin Prealbumin Cholesterol LDL Cholesterol Direct HDL Cholesterol Urine WBC (Auto) Vancomycin Trough Coronavirus (PCR) Crossmatch 07/04/19 07/05/19 07/05/19 Unknown 03:20 04:00 WBC RBC Hgb Hct MCV MCH MCHC RDW Plt Count Lymph % (Auto) [place] % (Auto) Lymph # [place] # Baso # Seg Neutrophils % Seg Neuts % (Manual) Lymphocytes % (Manual) Monocytes % (Manual) Nucleated RBC % Seg Neutrophils # Seg Neutrophils # Man Lymphocytes # (Manual) Monocytes # (Manual) Basophils # (Manual) PT INR D-Dimer ABG pH ABG pO2 60.6 L ABG HCO3 ABG O2 Saturation 93.5 L ABG Base Excess -2.4 L ABG Hemoglobin 6.9 L Oxyhemoglobin 92.0 L Sodium 125 L Potassium Chloride 92.6 L Carbon Dioxide 19 L BUN 24 H Creatinine 0.6 L Glucose POC Glucose Lactic Acid Calcium 8.2 L Magnesium 1.40 L Iron TIBC Ferritin AST ALT Lactate Dehydrogenase 242 H Troponin T C-Reactive Protein 16.70 H Total Protein Albumin Prealbumin Cholesterol LDL Cholesterol Direct HDL Cholesterol Urine WBC (Auto) Vancomycin Trough Coronavirus (PCR) Crossmatch 07/05/19 07/05/19 07/05/19 10:11 16:15 17:54 WBC 46.4 H* RBC 2.77 L Hgb 7.2 L Hct 21.9 L MCV 79 L MCH 26 L MCHC RDW 19.0 H Plt Count Lymph % (Auto) [place] % (Auto) Lymph # [place] # Baso # Seg Neutrophils % Seg Neuts % (Manual) 82.0 H Lymphocytes % (Manual) 1.0 L Monocytes % (Manual) Nucleated RBC % Seg Neutrophils # Seg Neutrophils # Man 38.0 H Lymphocytes # (Manual) 0.5 L Monocytes # (Manual) Basophils # (Manual) PT INR D-Dimer ABG pH ABG pO2 ABG HCO3 ABG O2 Saturation ABG Base Excess ABG Hemoglobin Oxyhemoglobin Sodium Potassium Chloride Carbon Dioxide BUN Creatinine Glucose POC Glucose 69 L Lactic Acid Calcium Magnesium Iron TIBC Ferritin AST ALT Lactate Dehydrogenase Troponin T C-Reactive Protein Total Protein Albumin Prealbumin Cholesterol LDL Cholesterol Direct HDL Cholesterol Urine WBC (Auto) Vancomycin Trough 23.2 H Coronavirus (PCR) Crossmatch 07/05/19 07/06/19 07/06/19 19:58 00:27 00:27 WBC RBC Hgb Hct MCV MCH MCHC RDW Plt Count Lymph % (Auto) [place] % (Auto) Lymph # [place] # Baso # Seg Neutrophils % Seg Neuts % (Manual) Lymphocytes % (Manual) Monocytes % (Manual) Nucleated RBC % Seg Neutrophils # Seg Neutrophils # Man Lymphocytes # (Manual) Monocytes # (Manual) Basophils # (Manual) PT INR D-Dimer 1333.22 H ABG pH ABG pO2 ABG HCO3 ABG O2 Saturation ABG Base Excess ABG Hemoglobin Oxyhemoglobin Sodium 127 L Potassium Chloride Carbon Dioxide BUN Creatinine Glucose POC Glucose Lactic Acid Calcium Magnesium Iron TIBC Ferritin 977.1 H AST ALT Lactate Dehydrogenase Troponin T C-Reactive Protein Total Protein Albumin Prealbumin Cholesterol LDL Cholesterol Direct HDL Cholesterol Urine WBC (Auto) Vancomycin Trough Coronavirus (PCR) Crossmatch 07/06/19 07/06/19 07/06/19 00:27 02:00 02:56 WBC RBC Hgb Hct MCV MCH MCHC RDW Plt Count Lymph % (Auto) [place] % (Auto) Lymph # [place] # Baso # Seg Neutrophils % Seg Neuts % (Manual) Lymphocytes % (Manual) Monocytes % (Manual) Nucleated RBC % Seg Neutrophils # Seg Neutrophils # Man Lymphocytes # (Manual) Monocytes # (Manual) Basophils # (Manual) PT INR D-Dimer ABG pH ABG pO2 70.3 L ABG HCO3 ABG O2 Saturation 94.8 L ABG Base Excess ABG Hemoglobin 8.0 L Oxyhemoglobin 93.2 L Sodium Potassium Chloride Carbon Dioxide BUN Creatinine Glucose POC Glucose 117 H Lactic Acid Calcium Magnesium Iron TIBC Ferritin AST ALT Lactate Dehydrogenase 236 H Troponin T C-Reactive Protein 22.90 H Total Protein Albumin Prealbumin Cholesterol LDL Cholesterol Direct HDL Cholesterol Urine WBC (Auto) Vancomycin Trough Coronavirus (PCR) Crossmatch 07/06/19 07/06/19 07/06/19 03:49 03:49 07:40 WBC 38.8 H RBC 2.51 L Hgb 6.7 L Hct 19.9 L* MCV 79 L MCH 27 L MCHC RDW 19.2 H Plt Count Lymph % (Auto) [place] % (Auto) Lymph # [place] # Baso # Seg Neutrophils % Seg Neuts % (Manual) 90.5 H Lymphocytes % (Manual) 1.0 L Monocytes % (Manual) Nucleated RBC % Seg Neutrophils # Seg Neutrophils # Man 35.1 H Lymphocytes # (Manual) 0.4 L Monocytes # (Manual) Basophils # (Manual) PT INR D-Dimer ABG pH ABG pO2 ABG HCO3 ABG O2 Saturation ABG Base Excess ABG Hemoglobin Oxyhemoglobin Sodium 131 L Potassium Chloride 96.9 L Carbon Dioxide 18 L BUN 23 H Creatinine 0.5 L Glucose POC Glucose Lactic Acid Calcium 8.0 L Magnesium Iron TIBC Ferritin AST ALT Lactate Dehydrogenase Troponin T C-Reactive Protein Total Protein Albumin Prealbumin Cholesterol LDL Cholesterol Direct HDL Cholesterol Urine WBC (Auto) Vancomycin Trough Coronavirus (PCR) Crossmatch See Detail 07/06/19 07/06/19 07/06/19 12:38 14:39 20:00 WBC RBC Hgb Hct MCV MCH MCHC RDW Plt Count Lymph % (Auto) [place] % (Auto) Lymph # [place] # Baso # Seg Neutrophils % Seg Neuts % (Manual) Lymphocytes % (Manual) Monocytes % (Manual) Nucleated RBC % Seg Neutrophils # Seg Neutrophils # Man Lymphocytes # (Manual) Monocytes # (Manual) Basophils # (Manual) PT INR D-Dimer ABG pH ABG pO2 ABG HCO3 ABG O2 Saturation ABG Base Excess ABG Hemoglobin Oxyhemoglobin Sodium Potassium Chloride Carbon Dioxide BUN Creatinine Glucose POC Glucose 112 H 111 H 140 H Lactic Acid Calcium Magnesium Iron TIBC Ferritin AST ALT Lactate Dehydrogenase Troponin T C-Reactive Protein Total Protein Albumin Prealbumin Cholesterol LDL Cholesterol Direct HDL Cholesterol Urine WBC (Auto) Vancomycin Trough Coronavirus (PCR) Crossmatch 07/06/19 07/06/19 07/07/19 22:43 22:56 02:20 WBC RBC Hgb 7.9 L Hct 23.1 L MCV MCH MCHC RDW Plt Count Lymph % (Auto) [place] % (Auto) Lymph # [place] # Baso # Seg Neutrophils % Seg Neuts % (Manual) Lymphocytes % (Manual) Monocytes % (Manual) Nucleated RBC % Seg Neutrophils # Seg Neutrophils # Man Lymphocytes # (Manual) Monocytes # (Manual) Basophils # (Manual) PT INR D-Dimer ABG pH ABG pO2 ABG HCO3 ABG O2 Saturation ABG Base Excess ABG Hemoglobin Oxyhemoglobin Sodium Potassium Chloride Carbon Dioxide BUN Creatinine Glucose POC Glucose 122 H 149 H Lactic Acid Calcium Magnesium Iron TIBC Ferritin AST ALT Lactate Dehydrogenase Troponin T C-Reactive Protein Total Protein Albumin Prealbumin Cholesterol LDL Cholesterol Direct HDL Cholesterol Urine WBC (Auto) Vancomycin Trough Coronavirus (PCR) Crossmatch 07/07/19 07/07/19 07/07/19 04:35 05:27 05:34 WBC 23.1 H RBC 3.00 L Hgb 8.1 L Hct 24.2 L MCV 81 L MCH 27 L MCHC RDW 20.6 H Plt Count Lymph % (Auto) [place] % (Auto) Lymph # [place] # Baso # Seg Neutrophils % Seg Neuts % (Manual) 90.0 H Lymphocytes % (Manual) 2.0 L Monocytes % (Manual) Nucleated RBC % Seg Neutrophils # Seg Neutrophils # Man 20.8 H Lymphocytes # (Manual) 0.5 L Monocytes # (Manual) Basophils # (Manual) PT INR D-Dimer ABG pH ABG pO2 65.8 L ABG HCO3 ABG O2 Saturation 92.2 L ABG Base Excess ABG Hemoglobin 8.3 L Oxyhemoglobin 90.6 L Sodium Potassium Chloride Carbon Dioxide BUN Creatinine Glucose POC Glucose 132 H Lactic Acid Calcium Magnesium Iron TIBC Ferritin AST ALT Lactate Dehydrogenase Troponin T C-Reactive Protein Total Protein Albumin Prealbumin Cholesterol LDL Cholesterol Direct HDL Cholesterol Urine WBC (Auto) Vancomycin Trough Coronavirus (PCR) Crossmatch 07/07/19 07/07/19 07/07/19 05:34 11:50 15:58 WBC RBC Hgb 8.1 L Hct 24.2 L MCV MCH MCHC RDW Plt Count Lymph % (Auto) [place] % (Auto) Lymph # [place] # Baso # Seg Neutrophils % Seg Neuts % (Manual) Lymphocytes % (Manual) Monocytes % (Manual) Nucleated RBC % Seg Neutrophils # Seg Neutrophils # Man Lymphocytes # (Manual) Monocytes # (Manual) Basophils # (Manual) PT INR D-Dimer ABG pH ABG pO2 ABG HCO3 ABG O2 Saturation ABG Base Excess ABG Hemoglobin Oxyhemoglobin Sodium 135 L Potassium 3.3 L Chloride Carbon Dioxide 20 L BUN 27 H Creatinine 0.6 L Glucose 121 H POC Glucose 123 H Lactic Acid Calcium 8.0 L Magnesium Iron TIBC Ferritin AST ALT Lactate Dehydrogenase Troponin T C-Reactive Protein Total Protein Albumin Prealbumin Cholesterol LDL Cholesterol Direct HDL Cholesterol Urine WBC (Auto) Vancomycin Trough Coronavirus (PCR) Crossmatch 07/07/19 07/07/19 07/07/19 17:42 22:00 23:53 WBC RBC Hgb 8.0 L Hct 23.4 L MCV MCH MCHC RDW Plt Count Lymph % (Auto) [place] % (Auto) Lymph # [place] # Baso # Seg Neutrophils % Seg Neuts % (Manual) Lymphocytes % (Manual) Monocytes % (Manual) Nucleated RBC % Seg Neutrophils # Seg Neutrophils # Man Lymphocytes # (Manual) Monocytes # (Manual) Basophils # (Manual) PT INR D-Dimer ABG pH ABG pO2 ABG HCO3 ABG O2 Saturation ABG Base Excess ABG Hemoglobin Oxyhemoglobin Sodium Potassium Chloride Carbon Dioxide BUN Creatinine Glucose POC Glucose 107 H 117 H Lactic Acid Calcium Magnesium Iron TIBC Ferritin AST ALT Lactate Dehydrogenase Troponin T C-Reactive Protein Total Protein Albumin Prealbumin Cholesterol LDL Cholesterol Direct HDL Cholesterol Urine WBC (Auto) Vancomycin Trough Coronavirus (PCR) Crossmatch 07/08/19 07/08/19 07/08/19 00:45 00:45 00:45 WBC RBC Hgb Hct MCV MCH MCHC RDW Plt Count Lymph % (Auto) [place] % (Auto) Lymph # [place] # Baso # Seg Neutrophils % Seg Neuts % (Manual) Lymphocytes % (Manual) Monocytes % (Manual) Nucleated RBC % Seg Neutrophils # Seg Neutrophils # Man Lymphocytes # (Manual) Monocytes # (Manual) Basophils # (Manual) PT INR D-Dimer 1142.18 H ABG pH ABG pO2 ABG HCO3 ABG O2 Saturation ABG Base Excess ABG Hemoglobin Oxyhemoglobin Sodium Potassium Chloride Carbon Dioxide BUN Creatinine Glucose POC Glucose Lactic Acid Calcium Magnesium Iron TIBC Ferritin 839.0 H AST ALT Lactate Dehydrogenase 253 H Troponin T C-Reactive Protein 18.90 H Total Protein Albumin Prealbumin Cholesterol LDL Cholesterol Direct HDL Cholesterol Urine WBC (Auto) Vancomycin Trough Coronavirus (PCR) Crossmatch 07/08/19 07/08/19 07/08/19 04:30 05:11 12:02 WBC RBC Hgb Hct MCV MCH MCHC RDW Plt Count Lymph % (Auto) [place] % (Auto) Lymph # [place] # Baso # Seg Neutrophils % Seg Neuts % (Manual) Lymphocytes % (Manual) Monocytes % (Manual) Nucleated RBC % Seg Neutrophils # Seg Neutrophils # Man Lymphocytes # (Manual) Monocytes # (Manual) Basophils # (Manual) PT INR D-Dimer ABG pH ABG pO2 66.0 L ABG HCO3 ABG O2 Saturation 92.3 L ABG Base Excess ABG Hemoglobin 7.7 L Oxyhemoglobin 90.7 L Sodium Potassium Chloride Carbon Dioxide BUN Creatinine Glucose POC Glucose 108 H 153 H Lactic Acid Calcium Magnesium Iron TIBC Ferritin AST ALT Lactate Dehydrogenase Troponin T C-Reactive Protein Total Protein Albumin Prealbumin Cholesterol LDL Cholesterol Direct HDL Cholesterol Urine WBC (Auto) Vancomycin Trough Coronavirus (PCR) Crossmatch 07/08/19 07/08/19 07/08/19 16:15 18:22 23:35 WBC RBC Hgb Hct MCV MCH MCHC RDW Plt Count Lymph % (Auto) [place] % (Auto) Lymph # [place] # Baso # Seg Neutrophils % Seg Neuts % (Manual) Lymphocytes % (Manual) Monocytes % (Manual) Nucleated RBC % Seg Neutrophils # Seg Neutrophils # Man Lymphocytes # (Manual) Monocytes # (Manual) Basophils # (Manual) PT INR D-Dimer ABG pH ABG pO2 ABG HCO3 ABG O2 Saturation ABG Base Excess ABG Hemoglobin Oxyhemoglobin Sodium 134 L Potassium 3.3 L Chloride Carbon Dioxide 21 L BUN 27 H Creatinine 0.6 L Glucose 146 H POC Glucose 134 H 133 H Lactic Acid Calcium Magnesium Iron TIBC Ferritin AST ALT Lactate Dehydrogenase Troponin T C-Reactive Protein Total Protein Albumin Prealbumin Cholesterol LDL Cholesterol Direct HDL Cholesterol Urine WBC (Auto) Vancomycin Trough Coronavirus (PCR) Crossmatch 07/09/19 07/09/19 07/09/19 04:30 04:30 05:00 WBC 18.9 H RBC 2.77 L Hgb 7.4 L Hct 22.8 L MCV 82 L MCH 27 L MCHC RDW 20.9 H Plt Count 130 L Lymph % (Auto) [place] % (Auto) Lymph # [place] # Baso # Seg Neutrophils % Seg Neuts % (Manual) 84.0 H Lymphocytes % (Manual) 0 L Monocytes % (Manual) Nucleated RBC % Seg Neutrophils # Seg Neutrophils # Man 15.9 H Lymphocytes # (Manual) 0.0 L Monocytes # (Manual) Basophils # (Manual) PT INR D-Dimer ABG pH ABG pO2 ABG HCO3 ABG O2 Saturation ABG Base Excess ABG Hemoglobin Oxyhemoglobin Sodium Potassium 3.1 L Chloride Carbon Dioxide BUN 26 H Creatinine 0.5 L Glucose 125 H POC Glucose 155 H Lactic Acid Calcium Magnesium Iron TIBC Ferritin AST ALT Lactate Dehydrogenase Troponin T C-Reactive Protein Total Protein Albumin Prealbumin Cholesterol LDL Cholesterol Direct HDL Cholesterol Urine WBC (Auto) Vancomycin Trough Coronavirus (PCR) Crossmatch 07/09/19 07/09/19 07/09/19 05:55 12:22 17:50 WBC RBC Hgb Hct MCV MCH MCHC RDW Plt Count Lymph % (Auto) [place] % (Auto) Lymph # [place] # Baso # Seg Neutrophils % Seg Neuts % (Manual) Lymphocytes % (Manual) Monocytes % (Manual) Nucleated RBC % Seg Neutrophils # Seg Neutrophils # Man Lymphocytes # (Manual) Monocytes # (Manual) Basophils # (Manual) PT INR D-Dimer ABG pH ABG pO2 62.8 L ABG HCO3 ABG O2 Saturation ABG Base Excess ABG Hemoglobin 6.1 L Oxyhemoglobin 93.9 L Sodium Potassium Chloride Carbon Dioxide BUN Creatinine Glucose POC Glucose 115 H 133 H Lactic Acid Calcium Magnesium Iron TIBC Ferritin AST ALT Lactate Dehydrogenase Troponin T C-Reactive Protein Total Protein Albumin Prealbumin Cholesterol LDL Cholesterol Direct HDL Cholesterol Urine WBC (Auto) Vancomycin Trough Coronavirus (PCR) Crossmatch 07/10/19 07/10/19 07/10/19 00:38 04:00 04:00 WBC RBC Hgb Hct MCV MCH MCHC RDW Plt Count Lymph % (Auto) [place] % (Auto) Lymph # [place] # Baso # Seg Neutrophils % Seg Neuts % (Manual) Lymphocytes % (Manual) Monocytes % (Manual) Nucleated RBC % Seg Neutrophils # Seg Neutrophils # Man Lymphocytes # (Manual) Monocytes # (Manual) Basophils # (Manual) PT INR D-Dimer ABG pH ABG pO2 ABG HCO3 ABG O2 Saturation ABG Base Excess ABG Hemoglobin Oxyhemoglobin Sodium Potassium Chloride 107.9 H Carbon Dioxide BUN 26 H Creatinine 0.4 L Glucose 137 H POC Glucose 122 H Lactic Acid Calcium Magnesium 1.50 L Iron TIBC Ferritin AST ALT Lactate Dehydrogenase 277 H Troponin T C-Reactive Protein 15.10 H Total Protein Albumin Prealbumin Cholesterol LDL Cholesterol Direct HDL Cholesterol Urine WBC (Auto) Vancomycin Trough Coronavirus (PCR) Crossmatch 07/10/19 07/10/19 07/10/19 04:07 05:21 17:25 WBC RBC Hgb Hct MCV MCH MCHC RDW Plt Count Lymph % (Auto) [place] % (Auto) Lymph # [place] # Baso # Seg Neutrophils % Seg Neuts % (Manual) Lymphocytes % (Manual) Monocytes % (Manual) Nucleated RBC % Seg Neutrophils # Seg Neutrophils # Man Lymphocytes # (Manual) Monocytes # (Manual) Basophils # (Manual) PT INR D-Dimer ABG pH ABG pO2 65.6 L ABG HCO3 26.3 H ABG O2 Saturation ABG Base Excess ABG Hemoglobin 6.7 L Oxyhemoglobin Sodium Potassium Chloride Carbon Dioxide BUN Creatinine Glucose POC Glucose 144 H 113 H Lactic Acid Calcium Magnesium Iron TIBC Ferritin AST ALT Lactate Dehydrogenase Troponin T C-Reactive Protein Total Protein Albumin Prealbumin Cholesterol LDL Cholesterol Direct HDL Cholesterol Urine WBC (Auto) Vancomycin Trough Coronavirus (PCR) Crossmatch 07/11/19 07/11/19 07/11/19 00:07 05:14 05:25 WBC RBC Hgb Hct MCV MCH MCHC RDW Plt Count Lymph % (Auto) [place] % (Auto) Lymph # [place] # Baso # Seg Neutrophils % Seg Neuts % (Manual) Lymphocytes % (Manual) Monocytes % (Manual) Nucleated RBC % Seg Neutrophils # Seg Neutrophils # Man Lymphocytes # (Manual) Monocytes # (Manual) Basophils # (Manual) PT INR D-Dimer ABG pH ABG pO2 ABG HCO3 ABG O2 Saturation ABG Base Excess ABG Hemoglobin 5.8 L Oxyhemoglobin Sodium Potassium Chloride 108.0 H Carbon Dioxide BUN 26 H Creatinine 0.4 L Glucose 110 H POC Glucose 121 H Lactic Acid Calcium Magnesium Iron TIBC Ferritin AST ALT Lactate Dehydrogenase Troponin T C-Reactive Protein Total Protein Albumin Prealbumin Cholesterol LDL Cholesterol Direct HDL Cholesterol Urine WBC (Auto) Vancomycin Trough Coronavirus (PCR) Crossmatch 07/11/19 07/11/19 07/11/19 12:27 18:00 23:42 WBC RBC Hgb Hct MCV MCH MCHC RDW Plt Count Lymph % (Auto) [place] % (Auto) Lymph # [place] # Baso # Seg Neutrophils % Seg Neuts % (Manual) Lymphocytes % (Manual) Monocytes % (Manual) Nucleated RBC % Seg Neutrophils # Seg Neutrophils # Man Lymphocytes # (Manual) Monocytes # (Manual) Basophils # (Manual) PT INR D-Dimer ABG pH ABG pO2 ABG HCO3 ABG O2 Saturation ABG Base Excess ABG Hemoglobin Oxyhemoglobin Sodium Potassium Chloride Carbon Dioxide BUN Creatinine Glucose POC Glucose 158 H 141 H 142 H Lactic Acid Calcium Magnesium Iron TIBC Ferritin AST ALT Lactate Dehydrogenase Troponin T C-Reactive Protein Total Protein Albumin Prealbumin Cholesterol LDL Cholesterol Direct HDL Cholesterol Urine WBC (Auto) Vancomycin Trough Coronavirus (PCR) Crossmatch 07/12/19 07/12/19 07/12/19 04:46 04:46 05:23 WBC 23.6 H RBC 2.51 L Hgb 6.7 L Hct 20.8 L MCV 83 L MCH 27 L MCHC RDW 20.3 H Plt Count Lymph % (Auto) [place] % (Auto) Lymph # [place] # Baso # Seg Neutrophils % Seg Neuts % (Manual) 94.0 H Lymphocytes % (Manual) 4.0 L Monocytes % (Manual) Nucleated RBC % Seg Neutrophils # Seg Neutrophils # Man 22.2 H Lymphocytes # (Manual) 0.9 L Monocytes # (Manual) Basophils # (Manual) PT INR D-Dimer ABG pH ABG pO2 ABG HCO3 ABG O2 Saturation ABG Base Excess ABG Hemoglobin Oxyhemoglobin Sodium Potassium Chloride 107.1 H Carbon Dioxide BUN 25 H Creatinine 0.4 L Glucose 122 H POC Glucose 118 H Lactic Acid Calcium Magnesium Iron TIBC Ferritin AST ALT Lactate Dehydrogenase Troponin T C-Reactive Protein Total Protein Albumin Prealbumin Cholesterol LDL Cholesterol Direct HDL Cholesterol Urine WBC (Auto) Vancomycin Trough Coronavirus (PCR) Crossmatch 07/12/19 07/12/19 07/12/19 08:49 11:36 18:15 WBC RBC Hgb Hct MCV MCH MCHC RDW Plt Count Lymph % (Auto) [place] % (Auto) Lymph # [place] # Baso # Seg Neutrophils % Seg Neuts % (Manual) Lymphocytes % (Manual) Monocytes % (Manual) Nucleated RBC % Seg Neutrophils # Seg Neutrophils # Man Lymphocytes # (Manual) Monocytes # (Manual) Basophils # (Manual) PT INR D-Dimer ABG pH ABG pO2 ABG HCO3 ABG O2 Saturation ABG Base Excess ABG Hemoglobin Oxyhemoglobin Sodium Potassium Chloride Carbon Dioxide BUN Creatinine Glucose POC Glucose 124 H 110 H Lactic Acid Calcium Magnesium Iron TIBC Ferritin AST ALT Lactate Dehydrogenase Troponin T C-Reactive Protein Total Protein Albumin Prealbumin Cholesterol LDL Cholesterol Direct HDL Cholesterol Urine WBC (Auto) Vancomycin Trough Coronavirus (PCR) Crossmatch See Detail 07/12/19 07/13/19 07/13/19 23:16 05:26 06:50 WBC 23.9 H RBC 2.58 L Hgb 6.9 L Hct 21.5 L MCV 83 L MCH 27 L MCHC RDW 19.0 H Plt Count Lymph % (Auto) [place] % (Auto) Lymph # [place] # Baso # Seg Neutrophils % Seg Neuts % (Manual) 96.0 H Lymphocytes % (Manual) 3.0 L Monocytes % (Manual) Nucleated RBC % Seg Neutrophils # Seg Neutrophils # Man 22.9 H Lymphocytes # (Manual) 0.7 L Monocytes # (Manual) Basophils # (Manual) PT INR D-Dimer ABG pH ABG pO2 ABG HCO3 ABG O2 Saturation ABG Base Excess ABG Hemoglobin Oxyhemoglobin Sodium Potassium Chloride Carbon Dioxide BUN Creatinine Glucose POC Glucose 108 H 126 H Lactic Acid Calcium Magnesium Iron TIBC Ferritin AST ALT Lactate Dehydrogenase Troponin T C-Reactive Protein Total Protein Albumin Prealbumin Cholesterol LDL Cholesterol Direct HDL Cholesterol Urine WBC (Auto) Vancomycin Trough Coronavirus (PCR) Crossmatch 07/13/19 07/13/19 07/13/19 06:50 12:38 18:05 WBC RBC Hgb Hct MCV MCH MCHC RDW Plt Count Lymph % (Auto) [place] % (Auto) Lymph # [place] # Baso # Seg Neutrophils % Seg Neuts % (Manual) Lymphocytes % (Manual) Monocytes % (Manual) Nucleated RBC % Seg Neutrophils # Seg Neutrophils # Man Lymphocytes # (Manual) Monocytes # (Manual) Basophils # (Manual) PT INR D-Dimer ABG pH ABG pO2 ABG HCO3 ABG O2 Saturation ABG Base Excess ABG Hemoglobin Oxyhemoglobin Sodium Potassium Chloride Carbon Dioxide BUN 33 H Creatinine 0.5 L Glucose 136 H POC Glucose 164 H 145 H Lactic Acid Calcium Magnesium Iron TIBC Ferritin AST ALT Lactate Dehydrogenase Troponin T C-Reactive Protein Total Protein Albumin Prealbumin Cholesterol LDL Cholesterol Direct HDL Cholesterol Urine WBC (Auto) Vancomycin Trough Coronavirus (PCR) Crossmatch 07/13/19 07/14/19 07/14/19 18:30 00:21 04:40 WBC 22.9 H RBC 2.45 L Hgb 6.6 L Hct 21.1 L MCV MCH 27 L MCHC 31 L RDW 19.2 H Plt Count Lymph % (Auto) [place] % (Auto) Lymph # [place] # Baso # Seg Neutrophils % Seg Neuts % (Manual) 91.0 H Lymphocytes % (Manual) 7.0 L Monocytes % (Manual) Nucleated RBC % Seg Neutrophils # Seg Neutrophils # Man 20.8 H Lymphocytes # (Manual) Monocytes # (Manual) Basophils # (Manual) PT INR D-Dimer ABG pH ABG pO2 58.1 L ABG HCO3 ABG O2 Saturation 88.7 L ABG Base Excess ABG Hemoglobin 7.8 L Oxyhemoglobin 86.8 L Sodium Potassium Chloride Carbon Dioxide BUN Creatinine Glucose POC Glucose 118 H Lactic Acid Calcium Magnesium Iron TIBC Ferritin AST ALT Lactate Dehydrogenase Troponin T C-Reactive Protein Total Protein Albumin Prealbumin Cholesterol LDL Cholesterol Direct HDL Cholesterol Urine WBC (Auto) Vancomycin Trough Coronavirus (PCR) Crossmatch 07/14/19 07/14/19 07/14/19 04:40 05:38 05:45 WBC RBC Hgb Hct MCV MCH MCHC RDW Plt Count Lymph % (Auto) [place] % (Auto) Lymph # [place] # Baso # Seg Neutrophils % Seg Neuts % (Manual) Lymphocytes % (Manual) Monocytes % (Manual) Nucleated RBC % Seg Neutrophils # Seg Neutrophils # Man Lymphocytes # (Manual) Monocytes # (Manual) Basophils # (Manual) PT INR D-Dimer ABG pH 7.230 L ABG pO2 72.1 L ABG HCO3 ABG O2 Saturation 89.3 L ABG Base Excess -2.7 L ABG Hemoglobin 6.7 L Oxyhemoglobin 87.7 L Sodium Potassium Chloride 107.4 H Carbon Dioxide BUN 45 H Creatinine Glucose 101 H POC Glucose 154 H Lactic Acid Calcium Magnesium Iron TIBC Ferritin AST ALT Lactate Dehydrogenase Troponin T C-Reactive Protein Total Protein Albumin Prealbumin Cholesterol LDL Cholesterol Direct HDL Cholesterol Urine WBC (Auto) Vancomycin Trough Coronavirus (PCR) Crossmatch 07/14/19 07/14/19 07/14/19 12:25 18:20 19:01 WBC 22.4 H RBC 2.70 L Hgb 7.5 L Hct 23.3 L MCV MCH MCHC RDW 19.5 H Plt Count Lymph % (Auto) [place] % (Auto) Lymph # [place] # Baso # Seg Neutrophils % Seg Neuts % (Manual) Lymphocytes % (Manual) Monocytes % (Manual) Nucleated RBC % Seg Neutrophils # Seg Neutrophils # Man Lymphocytes # (Manual) Monocytes # (Manual) Basophils # (Manual) PT INR D-Dimer ABG pH ABG pO2 ABG HCO3 ABG O2 Saturation ABG Base Excess ABG Hemoglobin Oxyhemoglobin Sodium Potassium Chloride Carbon Dioxide BUN Creatinine Glucose POC Glucose 136 H 131 H Lactic Acid Calcium Magnesium Iron TIBC Ferritin AST ALT Lactate Dehydrogenase Troponin T C-Reactive Protein Total Protein Albumin Prealbumin Cholesterol LDL Cholesterol Direct HDL Cholesterol Urine WBC (Auto) Vancomycin Trough Coronavirus (PCR) Crossmatch 07/15/19 07/15/19 07/15/19 00:17 04:35 05:18 WBC 20.6 H RBC 2.41 L Hgb 6.8 L Hct 20.7 L MCV MCH MCHC RDW 20.2 H Plt Count Lymph % (Auto) [place] % (Auto) Lymph # [place] # Baso # Seg Neutrophils % Seg Neuts % (Manual) 92.0 H Lymphocytes % (Manual) 5.0 L Monocytes % (Manual) Nucleated RBC % Seg Neutrophils # Seg Neutrophils # Man 19.0 H Lymphocytes # (Manual) 1.0 L Monocytes # (Manual) Basophils # (Manual) PT INR D-Dimer ABG pH 7.342 L ABG pO2 ABG HCO3 ABG O2 Saturation ABG Base Excess -3.1 L ABG Hemoglobin 7.2 L Oxyhemoglobin 94.9 L Sodium Potassium Chloride Carbon Dioxide BUN Creatinine Glucose POC Glucose 116 H Lactic Acid Calcium Magnesium Iron TIBC Ferritin AST ALT Lactate Dehydrogenase Troponin T C-Reactive Protein Total Protein Albumin Prealbumin Cholesterol LDL Cholesterol Direct HDL Cholesterol Urine WBC (Auto) Vancomycin Trough Coronavirus (PCR) Crossmatch 07/15/19 07/15/19 07/15/19 05:18 05:57 11:28 WBC RBC Hgb Hct MCV MCH MCHC RDW Plt Count Lymph % (Auto) [place] % (Auto) Lymph # [place] # Baso # Seg Neutrophils % Seg Neuts % (Manual) Lymphocytes % (Manual) Monocytes % (Manual) Nucleated RBC % Seg Neutrophils # Seg Neutrophils # Man Lymphocytes # (Manual) Monocytes # (Manual) Basophils # (Manual) PT INR D-Dimer ABG pH ABG pO2 ABG HCO3 ABG O2 Saturation ABG Base Excess ABG Hemoglobin Oxyhemoglobin Sodium Potassium Chloride Carbon Dioxide 20 L BUN 59 H Creatinine Glucose 140 H POC Glucose 139 H 117 H Lactic Acid Calcium Magnesium Iron TIBC Ferritin AST ALT Lactate Dehydrogenase Troponin T C-Reactive Protein Total Protein Albumin Prealbumin Cholesterol LDL Cholesterol Direct HDL Cholesterol Urine WBC (Auto) Vancomycin Trough Coronavirus (PCR) Crossmatch 07/15/19 07/16/19 07/16/19 18:13 00:06 03:43 WBC RBC Hgb Hct MCV MCH MCHC RDW Plt Count Lymph % (Auto) [place] % (Auto) Lymph # [place] # Baso # Seg Neutrophils % Seg Neuts % (Manual) Lymphocytes % (Manual) Monocytes % (Manual) Nucleated RBC % Seg Neutrophils # Seg Neutrophils # Man Lymphocytes # (Manual) Monocytes # (Manual) Basophils # (Manual) PT INR D-Dimer ABG pH 7.344 L ABG pO2 68.6 L ABG HCO3 ABG O2 Saturation ABG Base Excess -3.5 L ABG Hemoglobin 6.1 L Oxyhemoglobin 93.3 L Sodium Potassium Chloride Carbon Dioxide BUN Creatinine Glucose POC Glucose 114 H 119 H Lactic Acid Calcium Magnesium Iron TIBC Ferritin AST ALT Lactate Dehydrogenase Troponin T C-Reactive Protein Total Protein Albumin Prealbumin Cholesterol LDL Cholesterol Direct HDL Cholesterol Urine WBC (Auto) Vancomycin Trough Coronavirus (PCR) Crossmatch 07/16/19 07/16/19 07/16/19 04:41 04:41 12:09 WBC 19.6 H RBC 2.81 L Hgb 7.7 L Hct 24.0 L MCV MCH 27 L MCHC RDW 19.4 H Plt Count 514 H Lymph % (Auto) 6.7 L [place] % (Auto) Lymph # [place] # 1.0 H Baso # Seg Neutrophils % 87.0 H Seg Neuts % (Manual) Lymphocytes % (Manual) Monocytes % (Manual) Nucleated RBC % Seg Neutrophils # 17.0 H Seg Neutrophils # Man Lymphocytes # (Manual) Monocytes # (Manual) Basophils # (Manual) PT INR D-Dimer ABG pH ABG pO2 ABG HCO3 ABG O2 Saturation ABG Base Excess ABG Hemoglobin Oxyhemoglobin Sodium Potassium 5.9 H Chloride Carbon Dioxide 21 L BUN 73 H Creatinine 2.0 H Glucose POC Glucose 141 H Lactic Acid Calcium Magnesium Iron TIBC Ferritin AST ALT Lactate Dehydrogenase Troponin T C-Reactive Protein Total Protein Albumin Prealbumin Cholesterol LDL Cholesterol Direct HDL Cholesterol Urine WBC (Auto) Vancomycin Trough Coronavirus (PCR) Crossmatch 07/16/19 07/16/19 07/17/19 16:19 17:45 00:16 WBC RBC Hgb Hct MCV MCH MCHC RDW Plt Count Lymph % (Auto) [place] % (Auto) Lymph # [place] # Baso # Seg Neutrophils % Seg Neuts % (Manual) Lymphocytes % (Manual) Monocytes % (Manual) Nucleated RBC % Seg Neutrophils # Seg Neutrophils # Man Lymphocytes # (Manual) Monocytes # (Manual) Basophils # (Manual) PT INR D-Dimer ABG pH ABG pO2 ABG HCO3 ABG O2 Saturation ABG Base Excess ABG Hemoglobin Oxyhemoglobin Sodium Potassium 5.1 H Chloride Carbon Dioxide 20 L BUN 72 H Creatinine 1.7 H Glucose 128 H POC Glucose 181 H 164 H Lactic Acid Calcium Magnesium Iron TIBC Ferritin AST ALT Lactate Dehydrogenase Troponin T C-Reactive Protein Total Protein Albumin Prealbumin Cholesterol LDL Cholesterol Direct HDL Cholesterol Urine WBC (Auto) Vancomycin Trough Coronavirus (PCR) Crossmatch 07/17/19 07/17/19 07/17/19 04:20 04:39 04:39 WBC 16.1 H RBC 2.92 L Hgb 8.0 L Hct 25.5 L MCV MCH MCHC 31 L RDW 19.7 H Plt Count 564 H Lymph % (Auto) 3.6 L [place] % (Auto) 7.4 H Lymph # 0.6 L [place] # 1.2 H Baso # Seg Neutrophils % 87.5 H Seg Neuts % (Manual) Lymphocytes % (Manual) Monocytes % (Manual) Nucleated RBC % Seg Neutrophils # 14.1 H Seg Neutrophils # Man Lymphocytes # (Manual) Monocytes # (Manual) Basophils # (Manual) PT INR D-Dimer ABG pH 7.231 L ABG pO2 95.3 H ABG HCO3 ABG O2 Saturation ABG Base Excess -5.0 L ABG Hemoglobin 7.9 L Oxyhemoglobin 94.8 L Sodium Potassium Chloride 107.8 H Carbon Dioxide 21 L BUN 68 H Creatinine Glucose POC Glucose Lactic Acid Calcium Magnesium Iron TIBC Ferritin AST ALT Lactate Dehydrogenase Troponin T C-Reactive Protein Total Protein Albumin Prealbumin Cholesterol LDL Cholesterol Direct HDL Cholesterol Urine WBC (Auto) Vancomycin Trough Coronavirus (PCR) Crossmatch 07/17/19 07/17/19 07/17/19 05:28 12:11 18:48 WBC RBC Hgb Hct MCV MCH MCHC RDW Plt Count Lymph % (Auto) [place] % (Auto) Lymph # [place] # Baso # Seg Neutrophils % Seg Neuts % (Manual) Lymphocytes % (Manual) Monocytes % (Manual) Nucleated RBC % Seg Neutrophils # Seg Neutrophils # Man Lymphocytes # (Manual) Monocytes # (Manual) Basophils # (Manual) PT INR D-Dimer ABG pH ABG pO2 ABG HCO3 ABG O2 Saturation ABG Base Excess ABG Hemoglobin Oxyhemoglobin Sodium Potassium Chloride Carbon Dioxide BUN Creatinine Glucose POC Glucose 121 H 125 H 174 H Lactic Acid Calcium Magnesium Iron TIBC Ferritin AST ALT Lactate Dehydrogenase Troponin T C-Reactive Protein Total Protein Albumin Prealbumin Cholesterol LDL Cholesterol Direct HDL Cholesterol Urine WBC (Auto) Vancomycin Trough Coronavirus (PCR) Crossmatch 07/17/19 07/17/19 07/18/19 19:55 23:57 02:30 WBC RBC Hgb Hct MCV MCH MCHC RDW Plt Count Lymph % (Auto) [place] % (Auto) Lymph # [place] # Baso # Seg Neutrophils % Seg Neuts % (Manual) Lymphocytes % (Manual) Monocytes % (Manual) Nucleated RBC % Seg Neutrophils # Seg Neutrophils # Man Lymphocytes # (Manual) Monocytes # (Manual) Basophils # (Manual) PT INR D-Dimer ABG pH 7.344 L 7.294 L ABG pO2 78.5 L 119.2 H ABG HCO3 ABG O2 Saturation ABG Base Excess -3.3 L -2.6 L ABG Hemoglobin 8.6 L 8.1 L Oxyhemoglobin 94.8 L Sodium Potassium Chloride Carbon Dioxide BUN Creatinine Glucose POC Glucose 148 H Lactic Acid Calcium Magnesium Iron TIBC Ferritin AST ALT Lactate Dehydrogenase Troponin T C-Reactive Protein Total Protein Albumin Prealbumin Cholesterol LDL Cholesterol Direct HDL Cholesterol Urine WBC (Auto) Vancomycin Trough Coronavirus (PCR) Crossmatch 07/18/19 07/18/19 07/18/19 04:49 05:22 05:22 WBC 15.9 H RBC 3.00 L Hgb 8.1 L Hct 26.0 L MCV MCH 27 L MCHC 31 L RDW 19.4 H Plt Count 733 H Lymph % (Auto) 6.3 L [place] % (Auto) 7.4 H Lymph # 1.0 L [place] # 1.2 H Baso # 0.2 H Seg Neutrophils % 83.8 H Seg Neuts % (Manual) Lymphocytes % (Manual) Monocytes % (Manual) Nucleated RBC % Seg Neutrophils # 13.3 H Seg Neutrophils # Man Lymphocytes # (Manual) Monocytes # (Manual) Basophils # (Manual) PT INR D-Dimer ABG pH ABG pO2 ABG HCO3 ABG O2 Saturation ABG Base Excess ABG Hemoglobin Oxyhemoglobin Sodium Potassium Chloride 110.6 H Carbon Dioxide BUN 61 H Creatinine Glucose 109 H POC Glucose 116 H Lactic Acid Calcium Magnesium Iron TIBC Ferritin AST ALT Lactate Dehydrogenase Troponin T C-Reactive Protein Total Protein Albumin Prealbumin Cholesterol LDL Cholesterol Direct HDL Cholesterol Urine WBC (Auto) Vancomycin Trough Coronavirus (PCR) Crossmatch 07/18/19 07/18/19 07/18/19 12:23 18:06 22:20 WBC RBC Hgb Hct MCV MCH MCHC RDW Plt Count Lymph % (Auto) [place] % (Auto) Lymph # [place] # Baso # Seg Neutrophils % Seg Neuts % (Manual) Lymphocytes % (Manual) Monocytes % (Manual) Nucleated RBC % Seg Neutrophils # Seg Neutrophils # Man Lymphocytes # (Manual) Monocytes # (Manual) Basophils # (Manual) PT INR D-Dimer ABG pH 7.338 L ABG pO2 135.1 H ABG HCO3 ABG O2 Saturation ABG Base Excess ABG Hemoglobin 9.2 L Oxyhemoglobin Sodium Potassium Chloride Carbon Dioxide BUN Creatinine Glucose POC Glucose 114 H 113 H Lactic Acid Calcium Magnesium Iron TIBC Ferritin AST ALT Lactate Dehydrogenase Troponin T C-Reactive Protein Total Protein Albumin Prealbumin Cholesterol LDL Cholesterol Direct HDL Cholesterol Urine WBC (Auto) Vancomycin Trough Coronavirus (PCR) Crossmatch 07/18/19 07/19/19 07/19/19 23:33 03:45 05:18 WBC RBC Hgb Hct MCV MCH MCHC RDW Plt Count Lymph % (Auto) [place] % (Auto) Lymph # [place] # Baso # Seg Neutrophils % Seg Neuts % (Manual) Lymphocytes % (Manual) Monocytes % (Manual) Nucleated RBC % Seg Neutrophils # Seg Neutrophils # Man Lymphocytes # (Manual) Monocytes # (Manual) Basophils # (Manual) PT INR D-Dimer ABG pH 7.342 L ABG pO2 95.0 H ABG HCO3 ABG O2 Saturation ABG Base Excess ABG Hemoglobin 8.5 L Oxyhemoglobin Sodium Potassium Chloride Carbon Dioxide BUN Creatinine Glucose POC Glucose 125 H 111 H Lactic Acid Calcium Magnesium Iron TIBC Ferritin AST ALT Lactate Dehydrogenase Troponin T C-Reactive Protein Total Protein Albumin Prealbumin Cholesterol LDL Cholesterol Direct HDL Cholesterol Urine WBC (Auto) Vancomycin Trough Coronavirus (PCR) Crossmatch 07/19/19 07/19/19 07/19/19 08:45 08:45 11:47 WBC 15.9 H RBC 3.31 L Hgb 9.1 L Hct 28.4 L MCV MCH 27 L MCHC RDW 19.1 H Plt Count 858 H Lymph % (Auto) 4.9 L [place] % (Auto) 8.1 H Lymph # 0.8 L [place] # 1.3 H Baso # Seg Neutrophils % 85.5 H Seg Neuts % (Manual) Lymphocytes % (Manual) Monocytes % (Manual) Nucleated RBC % Seg Neutrophils # 13.6 H Seg Neutrophils # Man Lymphocytes # (Manual) Monocytes # (Manual) Basophils # (Manual) PT INR D-Dimer ABG pH ABG pO2 ABG HCO3 ABG O2 Saturation ABG Base Excess ABG Hemoglobin Oxyhemoglobin Sodium Potassium Chloride 111.6 H Carbon Dioxide BUN 50 H Creatinine 0.7 L Glucose 118 H POC Glucose 114 H Lactic Acid Calcium Magnesium Iron TIBC Ferritin AST ALT Lactate Dehydrogenase Troponin T C-Reactive Protein Total Protein Albumin Prealbumin Cholesterol LDL Cholesterol Direct HDL Cholesterol Urine WBC (Auto) Vancomycin Trough Coronavirus (PCR) Crossmatch 07/19/19 07/19/19 07/20/19 18:25 23:44 04:39 WBC RBC Hgb Hct MCV MCH MCHC RDW Plt Count Lymph % (Auto) [place] % (Auto) Lymph # [place] # Baso # Seg Neutrophils % Seg Neuts % (Manual) Lymphocytes % (Manual) Monocytes % (Manual) Nucleated RBC % Seg Neutrophils # Seg Neutrophils # Man Lymphocytes # (Manual) Monocytes # (Manual) Basophils # (Manual) PT INR D-Dimer ABG pH ABG pO2 ABG HCO3 ABG O2 Saturation ABG Base Excess ABG Hemoglobin Oxyhemoglobin Sodium Potassium Chloride 110.3 H Carbon Dioxide BUN 44 H Creatinine 0.6 L Glucose 120 H POC Glucose 115 H 117 H Lactic Acid Calcium Magnesium Iron TIBC Ferritin AST ALT Lactate Dehydrogenase Troponin T C-Reactive Protein Total Protein Albumin Prealbumin Cholesterol LDL Cholesterol Direct HDL Cholesterol Urine WBC (Auto) Vancomycin Trough Coronavirus (PCR) Crossmatch 07/20/19 07/21/19 07/21/19 05:30 11:59 17:40 WBC RBC Hgb Hct MCV MCH MCHC RDW Plt Count Lymph % (Auto) [place] % (Auto) Lymph # [place] # Baso # Seg Neutrophils % Seg Neuts % (Manual) Lymphocytes % (Manual) Monocytes % (Manual) Nucleated RBC % Seg Neutrophils # Seg Neutrophils # Man Lymphocytes # (Manual) Monocytes # (Manual) Basophils # (Manual) PT INR D-Dimer ABG pH ABG pO2 ABG HCO3 ABG O2 Saturation ABG Base Excess ABG Hemoglobin Oxyhemoglobin Sodium Potassium Chloride Carbon Dioxide BUN Creatinine Glucose POC Glucose 131 H 122 H 125 H Lactic Acid Calcium Magnesium Iron TIBC Ferritin AST ALT Lactate Dehydrogenase Troponin T C-Reactive Protein Total Protein Albumin Prealbumin Cholesterol LDL Cholesterol Direct HDL Cholesterol Urine WBC (Auto) Vancomycin Trough Coronavirus (PCR) Crossmatch 07/22/19 07/22/19 07/22/19 05:38 05:38 12:29 WBC 12.6 H RBC 3.19 L Hgb 8.9 L Hct 27.5 L MCV MCH MCHC RDW 18.9 H Plt Count 1101 H* Lymph % (Auto) [place] % (Auto) 12.2 H Lymph # [place] # 1.5 H Baso # Seg Neutrophils % 72.8 H Seg Neuts % (Manual) 76.0 H Lymphocytes % (Manual) 7.0 L Monocytes % (Manual) 14.0 H Nucleated RBC % 1.0 H Seg Neutrophils # 9.2 H Seg Neutrophils # Man 9.6 H Lymphocytes # (Manual) 0.9 L Monocytes # (Manual) 1.8 H Basophils # (Manual) PT INR D-Dimer ABG pH ABG pO2 ABG HCO3 ABG O2 Saturation ABG Base Excess ABG Hemoglobin Oxyhemoglobin Sodium Potassium 3.4 L Chloride Carbon Dioxide BUN 29 H Creatinine 0.5 L Glucose POC Glucose 116 H Lactic Acid Calcium Magnesium Iron TIBC Ferritin AST ALT Lactate Dehydrogenase Troponin T C-Reactive Protein Total Protein Albumin Prealbumin Cholesterol LDL Cholesterol Direct HDL Cholesterol Urine WBC (Auto) Vancomycin Trough Coronavirus (PCR) Crossmatch 07/22/19 07/22/19 07/23/19 18:20 23:51 04:52 WBC RBC Hgb Hct MCV MCH MCHC RDW Plt Count Lymph % (Auto) [place] % (Auto) Lymph # [place] # Baso # Seg Neutrophils % Seg Neuts % (Manual) Lymphocytes % (Manual) Monocytes % (Manual) Nucleated RBC % Seg Neutrophils # Seg Neutrophils # Man Lymphocytes # (Manual) Monocytes # (Manual) Basophils # (Manual) PT INR D-Dimer ABG pH ABG pO2 ABG HCO3 ABG O2 Saturation ABG Base Excess ABG Hemoglobin Oxyhemoglobin Sodium Potassium Chloride Carbon Dioxide BUN 24 H Creatinine 0.4 L Glucose POC Glucose 107 H 110 H Lactic Acid Calcium Magnesium Iron TIBC Ferritin AST ALT Lactate Dehydrogenase Troponin T C-Reactive Protein Total Protein Albumin Prealbumin Cholesterol LDL Cholesterol Direct HDL Cholesterol Urine WBC (Auto) Vancomycin Trough Coronavirus (PCR) Crossmatch 07/23/19 07/23/19 07/24/19 06:00 23:15 04:40 WBC RBC Hgb Hct MCV MCH MCHC RDW Plt Count Lymph % (Auto) [place] % (Auto) Lymph # [place] # Baso # Seg Neutrophils % Seg Neuts % (Manual) Lymphocytes % (Manual) Monocytes % (Manual) Nucleated RBC % Seg Neutrophils # Seg Neutrophils # Man Lymphocytes # (Manual) Monocytes # (Manual) Basophils # (Manual) PT INR D-Dimer ABG pH ABG pO2 73.5 L ABG HCO3 27.0 H 28.5 H ABG O2 Saturation 94.5 L ABG Base Excess ABG Hemoglobin 9.4 L 8.9 L Oxyhemoglobin 94.0 L 92.7 L Sodium Potassium Chloride Carbon Dioxide BUN Creatinine Glucose POC Glucose 117 H Lactic Acid Calcium Magnesium Iron TIBC Ferritin AST ALT Lactate Dehydrogenase Troponin T C-Reactive Protein Total Protein Albumin Prealbumin Cholesterol LDL Cholesterol Direct HDL Cholesterol Urine WBC (Auto) Vancomycin Trough Coronavirus (PCR) Crossmatch 07/24/19 07/24/19 07/25/19 05:25 12:06 00:16 WBC RBC Hgb Hct MCV MCH MCHC RDW Plt Count Lymph % (Auto) [place] % (Auto) Lymph # [place] # Baso # Seg Neutrophils % Seg Neuts % (Manual) Lymphocytes % (Manual) Monocytes % (Manual) Nucleated RBC % Seg Neutrophils # Seg Neutrophils # Man Lymphocytes # (Manual) Monocytes # (Manual) Basophils # (Manual) PT INR D-Dimer ABG pH ABG pO2 ABG HCO3 ABG O2 Saturation ABG Base Excess ABG Hemoglobin Oxyhemoglobin Sodium Potassium Chloride Carbon Dioxide BUN Creatinine Glucose POC Glucose 114 H 108 H 106 H Lactic Acid Calcium Magnesium Iron TIBC Ferritin AST ALT Lactate Dehydrogenase Troponin T C-Reactive Protein Total Protein Albumin Prealbumin Cholesterol LDL Cholesterol Direct HDL Cholesterol Urine WBC (Auto) Vancomycin Trough Coronavirus (PCR) Crossmatch 07/25/19 07/25/19 07/25/19 05:14 05:14 05:17 WBC 17.8 H RBC 3.32 L Hgb 9.2 L Hct 28.6 L MCV MCH MCHC RDW 19.9 H Plt Count 994 H Lymph % (Auto) [place] % (Auto) Lymph # [place] # Baso # Seg Neutrophils % Seg Neuts % (Manual) 82.0 H Lymphocytes % (Manual) 5.0 L Monocytes % (Manual) Nucleated RBC % Seg Neutrophils # Seg Neutrophils # Man 14.6 H Lymphocytes # (Manual) 0.9 L Monocytes # (Manual) 1.2 H Basophils # (Manual) PT INR D-Dimer ABG pH ABG pO2 ABG HCO3 ABG O2 Saturation ABG Base Excess ABG Hemoglobin Oxyhemoglobin Sodium Potassium Chloride Carbon Dioxide BUN Creatinine 0.4 L Glucose 110 H POC Glucose 107 H Lactic Acid Calcium Magnesium Iron TIBC Ferritin AST ALT Lactate Dehydrogenase Troponin T C-Reactive Protein Total Protein Albumin Prealbumin Cholesterol LDL Cholesterol Direct HDL Cholesterol Urine WBC (Auto) Vancomycin Trough Coronavirus (PCR) Crossmatch 07/25/19 07/25/19 07/26/19 11:55 23:49 06:01 WBC RBC Hgb Hct MCV MCH MCHC RDW Plt Count Lymph % (Auto) [place] % (Auto) Lymph # [place] # Baso # Seg Neutrophils % Seg Neuts % (Manual) Lymphocytes % (Manual) Monocytes % (Manual) Nucleated RBC % Seg Neutrophils # Seg Neutrophils # Man Lymphocytes # (Manual) Monocytes # (Manual) Basophils # (Manual) PT INR D-Dimer ABG pH ABG pO2 ABG HCO3 ABG O2 Saturation ABG Base Excess ABG Hemoglobin Oxyhemoglobin Sodium Potassium Chloride Carbon Dioxide BUN Creatinine Glucose POC Glucose 123 H 118 H 106 H Lactic Acid Calcium Magnesium Iron TIBC Ferritin AST ALT Lactate Dehydrogenase Troponin T C-Reactive Protein Total Protein Albumin Prealbumin Cholesterol LDL Cholesterol Direct HDL Cholesterol Urine WBC (Auto) Vancomycin Trough Coronavirus (PCR) Crossmatch 07/26/19 07/27/19 07/27/19 17:02 00:28 05:16 WBC RBC Hgb Hct MCV MCH MCHC RDW Plt Count Lymph % (Auto) [place] % (Auto) Lymph # [place] # Baso # Seg Neutrophils % Seg Neuts % (Manual) Lymphocytes % (Manual) Monocytes % (Manual) Nucleated RBC % Seg Neutrophils # Seg Neutrophils # Man Lymphocytes # (Manual) Monocytes # (Manual) Basophils # (Manual) PT INR D-Dimer ABG pH ABG pO2 63.4 L ABG HCO3 31.3 H ABG O2 Saturation 92.7 L ABG Base Excess 6.3 H ABG Hemoglobin 7.6 L Oxyhemoglobin 90.9 L Sodium Potassium Chloride Carbon Dioxide BUN Creatinine Glucose POC Glucose 116 H 158 H Lactic Acid Calcium Magnesium Iron TIBC Ferritin AST ALT Lactate Dehydrogenase Troponin T C-Reactive Protein Total Protein Albumin Prealbumin Cholesterol LDL Cholesterol Direct HDL Cholesterol Urine WBC (Auto) Vancomycin Trough Coronavirus (PCR) Crossmatch 07/28/19 07/28/19 07/28/19 10:13 10:13 23:54 WBC 18.5 H RBC 3.20 L Hgb 8.8 L Hct 26.8 L MCV MCH 27 L MCHC RDW 19.9 H Plt Count 730 H Lymph % (Auto) [place] % (Auto) Lymph # [place] # Baso # Seg Neutrophils % Seg Neuts % (Manual) Lymphocytes % (Manual) Monocytes % (Manual) Nucleated RBC % Seg Neutrophils # Seg Neutrophils # Man Lymphocytes # (Manual) Monocytes # (Manual) Basophils # (Manual) PT INR D-Dimer ABG pH ABG pO2 ABG HCO3 ABG O2 Saturation ABG Base Excess ABG Hemoglobin Oxyhemoglobin Sodium Potassium 3.2 L Chloride 97.5 L Carbon Dioxide 31 H BUN Creatinine 0.5 L Glucose POC Glucose 120 H Lactic Acid Calcium Magnesium Iron TIBC Ferritin AST ALT Lactate Dehydrogenase Troponin T C-Reactive Protein Total Protein Albumin Prealbumin Cholesterol LDL Cholesterol Direct HDL Cholesterol Urine WBC (Auto) Vancomycin Trough Coronavirus (PCR) Crossmatch 0507/29/[id number] 07/29/19 11:57 17:43 Unknown WBC RBC Hgb Hct MCV MCH MCHC RDW Plt Count Lymph % (Auto) [place] % (Auto) Lymph # [place] # Baso # Seg Neutrophils % Seg Neuts % (Manual) Lymphocytes % (Manual) Monocytes % (Manual) Nucleated RBC % Seg Neutrophils # Seg Neutrophils # Man Lymphocytes # (Manual) Monocytes # (Manual) Basophils # (Manual) PT INR D-Dimer ABG pH ABG pO2 ABG HCO3 ABG O2 Saturation ABG Base Excess ABG Hemoglobin Oxyhemoglobin Sodium Potassium Chloride Carbon Dioxide BUN Creatinine Glucose POC Glucose 112 H Lactic Acid Calcium Magnesium Iron TIBC Ferritin AST ALT Lactate Dehydrogenase Troponin T C-Reactive Protein Total Protein Albumin Prealbumin Cholesterol LDL Cholesterol Direct HDL Cholesterol Urine WBC (Auto) 63.0 H Vancomycin Trough Coronavirus (PCR) Positive A Crossmatch 07/30/19 07/30/19 07/30/19 00:20 04:35 04:35 WBC 24.3 H RBC 3.12 L Hgb 8.5 L Hct 26.3 L MCV MCH 27 L MCHC RDW 20.2 H Plt Count 550 H Lymph % (Auto) [place] % (Auto) Lymph # [place] # Baso # Seg Neutrophils % Seg Neuts % (Manual) Lymphocytes % (Manual) Monocytes % (Manual) Nucleated RBC % Seg Neutrophils # Seg Neutrophils # Man Lymphocytes # (Manual) Monocytes # (Manual) Basophils # (Manual) PT INR D-Dimer ABG pH ABG pO2 ABG HCO3 ABG O2 Saturation ABG Base Excess ABG Hemoglobin Oxyhemoglobin Sodium Potassium 3.0 L Chloride 96.3 L Carbon Dioxide 32 H BUN Creatinine 0.5 L Glucose POC Glucose 106 H Lactic Acid Calcium Magnesium Iron TIBC Ferritin AST ALT Lactate Dehydrogenase Troponin T C-Reactive Protein Total Protein Albumin Prealbumin Cholesterol LDL Cholesterol Direct HDL Cholesterol Urine WBC (Auto) Vancomycin Trough Coronavirus (PCR) Crossmatch 07/31/19 07/31/19 07/31/19 04:42 04:42 11:33 WBC 23.8 H RBC 3.10 L Hgb 8.4 L Hct 26.1 L MCV MCH 27 L MCHC RDW 19.6 H Plt Count 561 H Lymph % (Auto) [place] % (Auto) Lymph # [place] # Baso # Seg Neutrophils % Seg Neuts % (Manual) Lymphocytes % (Manual) Monocytes % (Manual) Nucleated RBC % Seg Neutrophils # Seg Neutrophils # Man Lymphocytes # (Manual) Monocytes # (Manual) Basophils # (Manual) PT INR D-Dimer ABG pH ABG pO2 ABG HCO3 ABG O2 Saturation ABG Base Excess ABG Hemoglobin Oxyhemoglobin Sodium 135 L Potassium Chloride 93.9 L Carbon Dioxide 32 H BUN Creatinine 0.4 L Glucose POC Glucose 116 H Lactic Acid Calcium Magnesium Iron TIBC Ferritin AST ALT Lactate Dehydrogenase Troponin T C-Reactive Protein Total Protein Albumin 1.6 L Prealbumin 0.037 L Cholesterol LDL Cholesterol Direct HDL Cholesterol Urine WBC (Auto) Vancomycin Trough Coronavirus (PCR) Crossmatch 07/31/19 08/01/19 08/01/19 23:33 04:57 04:57 WBC 26.7 H RBC 3.12 L Hgb 8.5 L Hct 26.3 L MCV MCH 27 L MCHC RDW 19.2 H Plt Count 602 H Lymph % (Auto) [place] % (Auto) Lymph # [place] # Baso # Seg Neutrophils % Seg Neuts % (Manual) 93.0 H Lymphocytes % (Manual) 2.0 L Monocytes % (Manual) Nucleated RBC % Seg Neutrophils # Seg Neutrophils # Man 24.8 H Lymphocytes # (Manual) 0.5 L Monocytes # (Manual) 1.1 H Basophils # (Manual) PT INR D-Dimer ABG pH ABG pO2 ABG HCO3 ABG O2 Saturation ABG Base Excess ABG Hemoglobin Oxyhemoglobin Sodium 132 L Potassium Chloride 93.8 L Carbon Dioxide 31 H BUN Creatinine 0.3 L Glucose POC Glucose 148 H Lactic Acid Calcium 8.1 L Magnesium Iron TIBC Ferritin AST ALT Lactate Dehydrogenase Troponin T C-Reactive Protein Total Protein Albumin Prealbumin Cholesterol LDL Cholesterol Direct HDL Cholesterol Urine WBC (Auto) Vancomycin Trough Coronavirus (PCR) Crossmatch 08/01/19 08/02/19 08/02/19 12:16 00:22 05:24 WBC RBC Hgb Hct MCV MCH MCHC RDW Plt Count Lymph % (Auto) [place] % (Auto) Lymph # [place] # Baso # Seg Neutrophils % Seg Neuts % (Manual) Lymphocytes % (Manual) Monocytes % (Manual) Nucleated RBC % Seg Neutrophils # Seg Neutrophils # Man Lymphocytes # (Manual) Monocytes # (Manual) Basophils # (Manual) PT INR D-Dimer ABG pH ABG pO2 ABG HCO3 ABG O2 Saturation ABG Base Excess ABG Hemoglobin Oxyhemoglobin Sodium Potassium Chloride Carbon Dioxide BUN Creatinine Glucose POC Glucose 120 H 119 H 113 H Lactic Acid Calcium Magnesium Iron TIBC Ferritin AST ALT Lactate Dehydrogenase Troponin T C-Reactive Protein Total Protein Albumin Prealbumin Cholesterol LDL Cholesterol Direct HDL Cholesterol Urine WBC (Auto) Vancomycin Trough Coronavirus (PCR) Crossmatch 08/03/19 08/03/19 08/03/19 05:20 12:01 23:48 WBC RBC Hgb Hct MCV MCH MCHC RDW Plt Count Lymph % (Auto) [place] % (Auto) Lymph # [place] # Baso # Seg Neutrophils % Seg Neuts % (Manual) Lymphocytes % (Manual) Monocytes % (Manual) Nucleated RBC % Seg Neutrophils # Seg Neutrophils # Man Lymphocytes # (Manual) Monocytes # (Manual) Basophils # (Manual) PT INR D-Dimer ABG pH ABG pO2 ABG HCO3 ABG O2 Saturation ABG Base Excess ABG Hemoglobin Oxyhemoglobin Sodium Potassium Chloride Carbon Dioxide BUN Creatinine Glucose POC Glucose 118 H 106 H 120 H Lactic Acid Calcium Magnesium Iron TIBC Ferritin AST ALT Lactate Dehydrogenase Troponin T C-Reactive Protein Total Protein Albumin Prealbumin Cholesterol LDL Cholesterol Direct HDL Cholesterol Urine WBC (Auto) Vancomycin Trough Coronavirus (PCR) Crossmatch 08/04/19 08/04/19 08/04/19 05:38 05:38 06:29 WBC 26.1 H RBC 2.77 L Hgb 7.5 L Hct 23.2 L MCV MCH 27 L MCHC RDW 19.2 H Plt Count 648 H Lymph % (Auto) [place] % (Auto) Lymph # [place] # Baso # Seg Neutrophils % Seg Neuts % (Manual) 90.5 H Lymphocytes % (Manual) 3.5 L Monocytes % (Manual) Nucleated RBC % Seg Neutrophils # Seg Neutrophils # Man 23.6 H Lymphocytes # (Manual) 0.9 L Monocytes # (Manual) 1.2 H Basophils # (Manual) PT INR D-Dimer ABG pH ABG pO2 ABG HCO3 ABG O2 Saturation ABG Base Excess ABG Hemoglobin Oxyhemoglobin Sodium 132 L Potassium 3.4 L D Chloride 92.7 L Carbon Dioxide 33 H BUN Creatinine 0.2 L Glucose POC Glucose 108 H Lactic Acid Calcium 8.1 L Magnesium Iron TIBC Ferritin AST ALT Lactate Dehydrogenase Troponin T C-Reactive Protein Total Protein Albumin Prealbumin Cholesterol LDL Cholesterol Direct HDL Cholesterol Urine WBC (Auto) Vancomycin Trough Coronavirus (PCR) Crossmatch 08/04/19 08/05/19 08/05/19 12:30 04:58 04:58 WBC 21.0 H RBC 2.63 L Hgb 7.2 L Hct 21.9 L MCV 83 L MCH 27 L MCHC RDW 18.9 H Plt Count 691 H Lymph % (Auto) [place] % (Auto) Lymph # [place] # Baso # Seg Neutrophils % Seg Neuts % (Manual) 86.0 H Lymphocytes % (Manual) 3.0 L Monocytes % (Manual) 10.0 H Nucleated RBC % Seg Neutrophils # Seg Neutrophils # Man 18.1 H Lymphocytes # (Manual) 0.6 L Monocytes # (Manual) 2.1 H Basophils # (Manual) PT INR D-Dimer ABG pH ABG pO2 ABG HCO3 ABG O2 Saturation ABG Base Excess ABG Hemoglobin Oxyhemoglobin Sodium 134 L Potassium 3.2 L Chloride 93.2 L Carbon Dioxide 34 H BUN 8 L Creatinine 0.3 L Glucose POC Glucose 138 H Lactic Acid Calcium 8.1 L Magnesium Iron TIBC Ferritin AST ALT Lactate Dehydrogenase Troponin T C-Reactive Protein Total Protein Albumin Prealbumin Cholesterol LDL Cholesterol Direct HDL Cholesterol Urine WBC (Auto) Vancomycin Trough Coronavirus (PCR) Crossmatch 08/05/19 08/05/19 08/05/19 11:53 17:57 23:58 WBC RBC Hgb Hct MCV MCH MCHC RDW Plt Count Lymph % (Auto) [place] % (Auto) Lymph # [place] # Baso # Seg Neutrophils % Seg Neuts % (Manual) Lymphocytes % (Manual) Monocytes % (Manual) Nucleated RBC % Seg Neutrophils # Seg Neutrophils # Man Lymphocytes # (Manual) Monocytes # (Manual) Basophils # (Manual) PT INR D-Dimer ABG pH ABG pO2 ABG HCO3 ABG O2 Saturation ABG Base Excess ABG Hemoglobin Oxyhemoglobin Sodium Potassium Chloride Carbon Dioxide BUN Creatinine Glucose POC Glucose 106 H 111 H 116 H Lactic Acid Calcium Magnesium Iron TIBC Ferritin AST ALT Lactate Dehydrogenase Troponin T C-Reactive Protein Total Protein Albumin Prealbumin Cholesterol LDL Cholesterol Direct HDL Cholesterol Urine WBC (Auto) Vancomycin Trough Coronavirus (PCR) Crossmatch 08/06/19 08/06/19 08/06/19 04:11 04:11 06:04 WBC 20.8 H RBC 2.80 L Hgb 7.6 L Hct 23.5 L MCV MCH 27 L MCHC RDW 19.0 H Plt Count 723 H Lymph % (Auto) [place] % (Auto) Lymph # [place] # Baso # Seg Neutrophils % Seg Neuts % (Manual) 88.0 H Lymphocytes % (Manual) 3.0 L Monocytes % (Manual) Nucleated RBC % Seg Neutrophils # Seg Neutrophils # Man 18.3 H Lymphocytes # (Manual) 0.6 L Monocytes # (Manual) Basophils # (Manual) 0.2 H PT INR D-Dimer ABG pH ABG pO2 ABG HCO3 ABG O2 Saturation ABG Base Excess ABG Hemoglobin Oxyhemoglobin Sodium Potassium 3.4 L Chloride 95.2 L Carbon Dioxide 32 H BUN Creatinine 0.3 L Glucose POC Glucose 108 H Lactic Acid Calcium 8.2 L Magnesium Iron TIBC Ferritin AST ALT Lactate Dehydrogenase Troponin T C-Reactive Protein Total Protein Albumin Prealbumin Cholesterol LDL Cholesterol Direct HDL Cholesterol Urine WBC (Auto) Vancomycin Trough Coronavirus (PCR) Crossmatch 08/06/19 08/06/19 08/07/19 12:23 17:13 00:21 WBC RBC Hgb Hct MCV MCH MCHC RDW Plt Count Lymph % (Auto) [place] % (Auto) Lymph # [place] # Baso # Seg Neutrophils % Seg Neuts % (Manual) Lymphocytes % (Manual) Monocytes % (Manual) Nucleated RBC % Seg Neutrophils # Seg Neutrophils # Man Lymphocytes # (Manual) Monocytes # (Manual) Basophils # (Manual) PT INR D-Dimer ABG pH ABG pO2 ABG HCO3 ABG O2 Saturation ABG Base Excess ABG Hemoglobin Oxyhemoglobin Sodium Potassium Chloride Carbon Dioxide BUN Creatinine Glucose POC Glucose 112 H 132 H 147 H Lactic Acid Calcium Magnesium Iron TIBC Ferritin AST ALT Lactate Dehydrogenase Troponin T C-Reactive Protein Total Protein Albumin Prealbumin Cholesterol LDL Cholesterol Direct HDL Cholesterol Urine WBC (Auto) Vancomycin Trough Coronavirus (PCR) Crossmatch 08/07/19 08/07/19 08/07/19 05:16 05:23 05:23 WBC 30.3 H RBC 2.69 L Hgb 7.1 L Hct 22.2 L MCV 83 L MCH 27 L MCHC RDW 19.1 H Plt Count 650 H Lymph % (Auto) [place] % (Auto) Lymph # [place] # Baso # Seg Neutrophils % Seg Neuts % (Manual) 88.0 H Lymphocytes % (Manual) 5.0 L Monocytes % (Manual) Nucleated RBC % Seg Neutrophils # Seg Neutrophils # Man 26.7 H Lymphocytes # (Manual) Monocytes # (Manual) 2.1 H Basophils # (Manual) PT INR D-Dimer ABG pH ABG pO2 ABG HCO3 ABG O2 Saturation ABG Base Excess ABG Hemoglobin Oxyhemoglobin Sodium 135 L Potassium 3.4 L Chloride 95.4 L Carbon Dioxide 32 H BUN Creatinine 0.4 L Glucose 120 H POC Glucose 120 H Lactic Acid Calcium 7.7 L Magnesium Iron TIBC Ferritin AST ALT Lactate Dehydrogenase Troponin T C-Reactive Protein Total Protein Albumin Prealbumin Cholesterol LDL Cholesterol Direct HDL Cholesterol Urine WBC (Auto) Vancomycin Trough Coronavirus (PCR) Crossmatch 08/07/19 08/07/19 08/07/19 10:24 10:24 11:10 WBC RBC Hgb Hct MCV MCH MCHC RDW Plt Count Lymph % (Auto) [place] % (Auto) Lymph # [place] # Baso # Seg Neutrophils % Seg Neuts % (Manual) Lymphocytes % (Manual) Monocytes % (Manual) Nucleated RBC % Seg Neutrophils # Seg Neutrophils # Man Lymphocytes # (Manual) Monocytes # (Manual) Basophils # (Manual) PT INR D-Dimer 1808.06 H ABG pH ABG pO2 73.3 L ABG HCO3 33.9 H ABG O2 Saturation ABG Base Excess 9.0 H ABG Hemoglobin 6.3 L Oxyhemoglobin 94.3 L Sodium Potassium Chloride Carbon Dioxide BUN Creatinine Glucose POC Glucose Lactic Acid Calcium Magnesium Iron TIBC Ferritin AST ALT Lactate Dehydrogenase Troponin T C-Reactive Protein 11.10 H Total Protein Albumin Prealbumin Cholesterol LDL Cholesterol Direct HDL Cholesterol Urine WBC (Auto) Vancomycin Trough Coronavirus (PCR) Crossmatch 08/07/19 08/08/19 08/08/19 12:01 04:41 04:41 WBC 22.1 H RBC 2.82 L Hgb 7.7 L Hct 23.6 L MCV MCH 27 L MCHC RDW 19.1 H Plt Count 722 H Lymph % (Auto) [place] % (Auto) Lymph # [place] # Baso # Seg Neutrophils % Seg Neuts % (Manual) 90.0 H Lymphocytes % (Manual) 3.0 L Monocytes % (Manual) Nucleated RBC % Seg Neutrophils # Seg Neutrophils # Man 19.9 H Lymphocytes # (Manual) 0.7 L Monocytes # (Manual) 1.3 H Basophils # (Manual) PT INR D-Dimer ABG pH ABG pO2 ABG HCO3 ABG O2 Saturation ABG Base Excess ABG Hemoglobin Oxyhemoglobin Sodium 136 L Potassium Chloride 97.8 L Carbon Dioxide BUN Creatinine 0.3 L Glucose 105 H POC Glucose 130 H Lactic Acid Calcium 7.8 L Magnesium Iron TIBC Ferritin AST ALT Lactate Dehydrogenase Troponin T C-Reactive Protein Total Protein Albumin Prealbumin Cholesterol LDL Cholesterol Direct HDL Cholesterol Urine WBC (Auto) Vancomycin Trough Coronavirus (PCR) Crossmatch 08/08/19 08/08/19 08/09/19 11:46 18:35 00:12 WBC RBC Hgb Hct MCV MCH MCHC RDW Plt Count Lymph % (Auto) [place] % (Auto) Lymph # [place] # Baso # Seg Neutrophils % Seg Neuts % (Manual) Lymphocytes % (Manual) Monocytes % (Manual) Nucleated RBC % Seg Neutrophils # Seg Neutrophils # Man Lymphocytes # (Manual) Monocytes # (Manual) Basophils # (Manual) PT INR D-Dimer ABG pH ABG pO2 ABG HCO3 ABG O2 Saturation ABG Base Excess ABG Hemoglobin Oxyhemoglobin Sodium Potassium Chloride Carbon Dioxide BUN Creatinine Glucose POC Glucose 117 H 117 H 117 H Lactic Acid Calcium Magnesium Iron TIBC Ferritin AST ALT Lactate Dehydrogenase Troponin T C-Reactive Protein Total Protein Albumin Prealbumin Cholesterol LDL Cholesterol Direct HDL Cholesterol Urine WBC (Auto) Vancomycin Trough Coronavirus (PCR) Crossmatch 08/09/19 08/09/19 08/09/19 05:33 12:22 17:48 WBC RBC Hgb Hct MCV MCH MCHC RDW Plt Count Lymph % (Auto) [place] % (Auto) Lymph # [place] # Baso # Seg Neutrophils % Seg Neuts % (Manual) Lymphocytes % (Manual) Monocytes % (Manual) Nucleated RBC % Seg Neutrophils # Seg Neutrophils # Man Lymphocytes # (Manual) Monocytes # (Manual) Basophils # (Manual) PT INR D-Dimer ABG pH ABG pO2 ABG HCO3 ABG O2 Saturation ABG Base Excess ABG Hemoglobin Oxyhemoglobin Sodium Potassium Chloride Carbon Dioxide BUN Creatinine Glucose POC Glucose 119 H 133 H 123 H Lactic Acid Calcium Magnesium Iron TIBC Ferritin AST ALT Lactate Dehydrogenase Troponin T C-Reactive Protein Total Protein Albumin Prealbumin Cholesterol LDL Cholesterol Direct HDL Cholesterol Urine WBC (Auto) Vancomycin Trough Coronavirus (PCR) Crossmatch 08/09/19 08/09/19 08/10/19 17:59 18:15 00:02 WBC RBC Hgb 6.7 L Hct 20.4 L MCV MCH MCHC RDW Plt Count Lymph % (Auto) [place] % (Auto) Lymph # [place] # Baso # Seg Neutrophils % Seg Neuts % (Manual) Lymphocytes % (Manual) Monocytes % (Manual) Nucleated RBC % Seg Neutrophils # Seg Neutrophils # Man Lymphocytes # (Manual) Monocytes # (Manual) Basophils # (Manual) PT INR D-Dimer ABG pH ABG pO2 ABG HCO3 ABG O2 Saturation ABG Base Excess ABG Hemoglobin Oxyhemoglobin Sodium Potassium Chloride Carbon Dioxide BUN Creatinine Glucose POC Glucose 124 H Lactic Acid Calcium Magnesium Iron TIBC Ferritin AST ALT Lactate Dehydrogenase Troponin T C-Reactive Protein Total Protein Albumin Prealbumin Cholesterol LDL Cholesterol Direct HDL Cholesterol Urine WBC (Auto) Vancomycin Trough Coronavirus (PCR) Crossmatch See Detail 08/10/19 08/10/19 08/10/19 05:47 08:00 08:00 WBC 16.9 H RBC 2.94 L Hgb 8.2 L Hct 24.9 L MCV MCH MCHC RDW 17.0 H Plt Count 661 H Lymph % (Auto) [place] % (Auto) Lymph # [place] # Baso # Seg Neutrophils % Seg Neuts % (Manual) Lymphocytes % (Manual) Monocytes % (Manual) Nucleated RBC % Seg Neutrophils # Seg Neutrophils # Man Lymphocytes # (Manual) Monocytes # (Manual) Basophils # (Manual) PT INR D-Dimer ABG pH ABG pO2 ABG HCO3 ABG O2 Saturation ABG Base Excess ABG Hemoglobin Oxyhemoglobin Sodium Potassium Chloride Carbon Dioxide BUN Creatinine 0.3 L Glucose 116 H POC Glucose 148 H Lactic Acid Calcium 7.7 L Magnesium Iron TIBC Ferritin AST ALT Lactate Dehydrogenase Troponin T C-Reactive Protein Total Protein Albumin Prealbumin Cholesterol LDL Cholesterol Direct HDL Cholesterol Urine WBC (Auto) Vancomycin Trough Coronavirus (PCR) Crossmatch 08/10/19 08/10/19 12:38 Unknown WBC RBC Hgb Hct MCV MCH MCHC RDW Plt Count Lymph % (Auto) [place] % (Auto) Lymph # [place] # Baso # Seg Neutrophils % Seg Neuts % (Manual) Lymphocytes % (Manual) Monocytes % (Manual) Nucleated RBC % Seg Neutrophils # Seg Neutrophils # Man Lymphocytes # (Manual) Monocytes # (Manual) Basophils # (Manual) PT INR D-Dimer ABG pH ABG pO2 ABG HCO3 ABG O2 Saturation ABG Base Excess ABG Hemoglobin Oxyhemoglobin Sodium Potassium Chloride Carbon Dioxide BUN Creatinine Glucose POC Glucose 113 H Lactic Acid Calcium Magnesium Iron TIBC Ferritin AST ALT Lactate Dehydrogenase Troponin T C-Reactive Protein Total Protein Albumin Prealbumin Cholesterol LDL Cholesterol Direct HDL Cholesterol Urine WBC (Auto) Vancomycin Trough Coronavirus (PCR) Positive A Crossmatch Allied health notes reviewed: nursing
[2019-08-11] MEDS: PIPERACIL/TAZOBACTA 4.5/NS 100 4.5 GM/100 ML VIAL IV SCH ×3 (05:31→17:50)
[2019-08-11] MEDS: INSULIN LISPRO 100 UNIT/ML SUB-Q SCH ×3 (05:35→17:57)
[2019-08-11] MEDS: LIPASE 10,500/PROTEASE 25,000/AMYLASE 43,750 (UNITS) DR CAP FEEDTUBE PRN (06:03)
[2019-08-11] MEDS: ASPIRIN 81 MG TAB CHEW PO SCH (09:53)
[2019-08-11] MEDS: FAMOTIDINE 20 MG TAB PO SCH ×2 (09:53→21:18)
[2019-08-11] MEDS: FOLIC ACID 1 MG TAB PO SCH (09:53)
[2019-08-11] MEDS: levETIRAcetam 500 MG/5 ML ORAL LIQD FEEDTUBE SCH ×2 (09:53→21:17)
[2019-08-11] MEDS: SODIUM HYPOCHLORITE, DAKIN'S 1/2 STRENGTH (0.25%) 473 ML TOPICAL SOLN TP SCH ×2 (09:54→22:03)
[2019-08-11] MEDS: ENOXAPARIN 40 MG/0.4 ML INJ SUB-Q SCH (09:54)
[2019-08-11] MEDS: DOCUSATE SODIUM 100 MG/10 ML ORAL LIQD PO SCH ×2 (09:54→21:18)
--- NOTE | 2019-08-11 10:07 | Progress Note ---
Assessment and Plan S/p Cardiopulmonary arrest with ROSC Severe Sepsis with septic shock. Acute hypoxemic respiratory failure on MVS COVID-19 positive with elevated markers Bilateral pneumonia Elevated LFTs. Oropharyngeal dysphagia s/p PEG Acute kidney injury Decubitus ulcers-unstageable Moderate protein calorie malnutriton [id number] metabolic acidosis Leukocytosis Thrombocytosis Microcytic anemia Repeat COVID testing remains positive. Repeat testing in a few days, once negative reconsult surgery for trach and PEG placement Continue with NGT feeding, Supportive transfusions to keep HgB >7g/dL Wean norepinephrine for MAP >65 Conitue with PSV as toelrated, full support at night Continue all care as documented -On Fentanyl infusion, at 1mcg to allow for weaning trials -Continue to coordinate sedation interruption( RN) and SBT( RT) today to optimize chances of success with weaning trial -ABG, CXR prn - continue airborne, droplet and contact isolation for COVID-19 - continue wound care per WCT - sedation prn for target RASS 0 to -1 - continue to wean supplemental oxygen for target O2 sat's > 90% - Daily SAT's and SBT assessment as tolerated - VAP bundle addressed - continue lung protective strategies - continue bronchodilators with pulmonary hygiene per RT - wean per pulmonary driven protocols otherwise - accuchecks with glycemic control per SSI (While critically ill target blood glucose of 140-180 mg/dL; avoid hypoglycemia) - continue to avoid benzodiazepines, reduce the possibility of delirium - prn analgesia per CPOT score - Maintenance of sleep-wake cycle, avoid delirium - continue enteral nutritional support at goal rate as tolerated - VTE prophylaxis-SCDs -Stress ulcer prophylaxis- Famotidine - PT/OT/ROM exercises - continue mobility protocol, off loading and skin assessment for pressure ulcer prevention - Monitor hemodynamics closely -Wright catheter in this critically ill patient with unstageable sacral decubitus ulcer - continue other care per attending / other consultants - discharge planning ongoing concurrently .... Re-evaluate in am & prn CONDITION: CRITICAL PROGNOSIS: GUARDED CODE STATUS: DNAR Called his family to discuss goals of care, wants us to continue to treat aggressively at this time. The high probability of a clinically significant, sudden or life-threatening deterioration of the [respiratory ,cardiovascular, neurology] system(s) required my full and direct attention, intervention and personal management. The aggregate critical care time was [31] minutes without overlap. Time includes spent on; [x] Data Review and interpretation [x] Patient assessment and monitoring of vital signs [x] Documentation [x] Medication orders and management Subjective Date of service: 08/11/19 Principal diagnosis: Bilateral pneumonia, severe sepsis with septic shock, en cephalopathy Interval history: The patient is a 69-year-old male with CVA, hypertension, dementia, schizophrenia, alcohol use disorder was admitted to the emergency room after being brought in by EMS with progressive shortness of breath and unresponsiveness. He was noted to have agonal breathing and a faint pulse requiring CPR. Patient was intubated and brought to the hospital. It seems, patient was on home hospice. Currently, remains critically ill, intubated, on mechanical ventilation. His COVID test resulted positive. Patient is seen today for: s/p cardiopulmonary arrest with ROSC;Ac hypoxemic Resp failure on MVS; Severe sepsis with Shock; Bilateral Pneumonia; POSITIVE coronavirus-19 infection. Seen and examined at bedside; 24hour events reviewed; nursing and respiratory care staff consulted; no adverse overnight events reported to me; resting in bed.Ongoing fevers with persistent leukocytosis. Remains COVID positive On MVS and tolerating it well; on fentanyl at 1mcg, on norepinephrine , s/p 2 units PRBC transfusion for acute blood loss anemia Tolerating CPAP 14/6 Tolerating tube feedings, Mental status changes persist, will spontaneously open eyes Objective Vital Signs - 12hr 08/10/19 08/10/19 08/10/19 23:00 23:13 23:45 Temperature 98.8 F Pulse Rate 78 78 Pulse Rate [ 83 From Monitor] Respiratory 19 23 Rate Blood Pressure 156/77 O2 Sat by Pulse 100 100 Oximetry 08/10/19 08/11/19 08/11/19 23:58 00:00 01:00 Temperature Pulse Rate 93 H 91 H 87 Pulse Rate [ From Monitor] Respiratory 17 17 Rate Blood Pressure 142/68 138/66 135/65 O2 Sat by Pulse 100 100 100 Oximetry 08/11/19 08/11/19 08/11/19 02:00 03:00 03:24 Temperature 98.7 F Pulse Rate 78 84 Pulse Rate [ From Monitor] Respiratory 14 15 Rate Blood Pressure 145/71 148/73 O2 Sat by Pulse 100 100 Oximetry 08/11/19 08/11/19 08/11/19 04:00 04:28 05:00 Temperature Pulse Rate 84 90 81 Pulse Rate [ From Monitor] Respiratory 15 16 Rate Blood Pressure 144/71 140/64 135/66 O2 Sat by Pulse 100 99 100 Oximetry 08/11/19 08/11/19 08/11/19 05:05 06:00 07:40 Temperature Pulse Rate 81 95 H 95 H Pulse Rate [ 85 From Monitor] Respiratory 30 H 18 20 Rate Blood Pressure 138/67 138/67 O2 Sat by Pulse 100 100 100 Oximetry Constitutional: appears uncomfortable, other (eelderly and chronically ill looking AAM, normocep[krystina;ic with mildly increased respiratory effort at rest) Eyes: non-icteric ENT: oropharynx moist, other (ETT 24 cm Pawan) Neck: supple, no lymphadenopathy, no JVD Effort: mildly labored Ascultation: Bilateral: diminished breath sounds, rhonchi Percussion: Bilateral: not dull Cardiovascular: regular rate and rhythm Gastrointestinal: normoactive bowel sounds, soft, non-tender, non-distended, other (+ PEG tube with mild TF leakage) Integumentary: decubitus ulcer (sacrals/p debridement- see wound care notes) Extremities: no cyanosis, no edema, pink and warm, pulses normal, other (contractures) Neurologic: unable to assess Psychiatric: other (Unable to assess re: AMS) CBC and BMP: 08/12/19 03:30 08/12/19 03:30 ABG, PT/INR, D-dimer: ABG ABG pH 7.445 pH Units (7.350-7.450) 08/07/19 11:10 ABG pCO2 50.5 mm Hg 08/07/19 11:10 ABG pO2 73.3 mm Hg (80.0-90.0) L 08/07/19 11:10 ABG O2 Saturation 96.5 % (95.0-99.0) 08/07/19 11:10 PT/INR, D-dimer PT 16.0 Sec. (12.2-14.9) H 07/03/19 22:20 INR 1.26 (0.87-1.13) H 07/03/19 22:20 D-Dimer 1808.06 ng/mlDDU (0-234) H 08/07/19 10:24 Abnormal lab findings: Abnormal Labs 07/03/19 07/03/19 07/03/19 19:57 21:10 21:13 WBC RBC Hgb Hct MCV MCH MCHC RDW Plt Count Lymph % (Auto) [place] % (Auto) Lymph # [place] # Baso # Seg Neutrophils % Seg Neuts % (Manual) Lymphocytes % (Manual) Monocytes % (Manual) Nucleated RBC % Seg Neutrophils # Seg Neutrophils # Man Lymphocytes # (Manual) Monocytes # (Manual) Basophils # (Manual) PT INR D-Dimer ABG pH 7.238 L ABG pO2 210.8 H ABG HCO3 15.4 L ABG O2 Saturation 99.2 H ABG Base Excess -11.1 L ABG Hemoglobin 8.0 L Oxyhemoglobin Sodium 124 L Potassium Chloride 92.9 L Carbon Dioxide 10 L BUN 23 H Creatinine 0.5 L Glucose 118 H POC Glucose Lactic Acid Calcium 7.0 L Magnesium Iron TIBC Ferritin AST 70 H ALT 88 H Lactate Dehydrogenase Troponin T 0.032 H C-Reactive Protein Total Protein 5.0 L Albumin 1.8 L Prealbumin Cholesterol 47 L LDL Cholesterol Direct 25 L HDL Cholesterol 20 L Urine WBC (Auto) 12.0 H Vancomycin Trough Coronavirus (PCR) Crossmatch 07/03/19 07/03/19 07/03/19 22:20 22:20 22:20 WBC 30.5 H RBC 2.96 L Hgb 7.7 L Hct 23.9 L MCV 81 L MCH 26 L MCHC RDW 18.6 H Plt Count 459 H Lymph % (Auto) [place] % (Auto) Lymph # [place] # Baso # Seg Neutrophils % Seg Neuts % (Manual) 93.0 H Lymphocytes % (Manual) 0.5 L Monocytes % (Manual) Nucleated RBC % Seg Neutrophils # Seg Neutrophils # Man 28.4 H Lymphocytes # (Manual) 0.2 L Monocytes # (Manual) Basophils # (Manual) PT 16.0 H INR 1.26 H D-Dimer ABG pH ABG pO2 ABG HCO3 ABG O2 Saturation ABG Base Excess ABG Hemoglobin Oxyhemoglobin Sodium Potassium Chloride Carbon Dioxide BUN Creatinine Glucose POC Glucose Lactic Acid 6.90 H* Calcium Magnesium Iron TIBC Ferritin AST ALT Lactate Dehydrogenase Troponin T C-Reactive Protein Total Protein Albumin Prealbumin Cholesterol LDL Cholesterol Direct HDL Cholesterol Urine WBC (Auto) Vancomycin Trough Coronavirus (PCR) Crossmatch 07/03/19 07/04/19 07/04/19 23:58 05:15 07:05 WBC 17.1 H RBC 3.22 L Hgb 8.3 L Hct 25.4 L MCV 79 L MCH 26 L MCHC RDW 18.6 H Plt Count Lymph % (Auto) [place] % (Auto) Lymph # [place] # Baso # Seg Neutrophils % Seg Neuts % (Manual) 74.0 H Lymphocytes % (Manual) 0 L Monocytes % (Manual) Nucleated RBC % Seg Neutrophils # Seg Neutrophils # Man 12.7 H Lymphocytes # (Manual) 0.0 L Monocytes # (Manual) Basophils # (Manual) PT INR D-Dimer ABG pH 7.310 L ABG pO2 73.2 L ABG HCO3 17.8 L ABG O2 Saturation 93.8 L ABG Base Excess -7.7 L ABG Hemoglobin 9.6 L Oxyhemoglobin 92.3 L Sodium Potassium Chloride Carbon Dioxide BUN Creatinine Glucose POC Glucose Lactic Acid 7.10 H* Calcium Magnesium Iron TIBC Ferritin AST ALT Lactate Dehydrogenase Troponin T C-Reactive Protein Total Protein Albumin Prealbumin Cholesterol LDL Cholesterol Direct HDL Cholesterol Urine WBC (Auto) Vancomycin Trough Coronavirus (PCR) Crossmatch 07/04/19 07/04/19 07/04/19 07:05 07:05 07:05 WBC RBC Hgb Hct MCV MCH MCHC RDW Plt Count Lymph % (Auto) [place] % (Auto) Lymph # [place] # Baso # Seg Neutrophils % Seg Neuts % (Manual) Lymphocytes % (Manual) Monocytes % (Manual) Nucleated RBC % Seg Neutrophils # Seg Neutrophils # Man Lymphocytes # (Manual) Monocytes # (Manual) Basophils # (Manual) PT INR D-Dimer ABG pH ABG pO2 ABG HCO3 ABG O2 Saturation ABG Base Excess ABG Hemoglobin Oxyhemoglobin Sodium 120 L Potassium 5.1 H Chloride 90.0 L Carbon Dioxide 14 L BUN 26 H Creatinine 0.5 L Glucose POC Glucose Lactic Acid 3.30 H* Calcium 8.0 L Magnesium Iron 9 L TIBC 97 L Ferritin AST 73 H ALT 91 H Lactate Dehydrogenase Troponin T C-Reactive Protein Total Protein 5.5 L Albumin 2.0 L Prealbumin Cholesterol LDL Cholesterol Direct HDL Cholesterol Urine WBC (Auto) Vancomycin Trough Coronavirus (PCR) Crossmatch 07/04/19 07/04/19 07/04/19 09:39 09:39 09:39 WBC RBC Hgb Hct MCV MCH MCHC RDW Plt Count Lymph % (Auto) [place] % (Auto) Lymph # [place] # Baso # Seg Neutrophils % Seg Neuts % (Manual) Lymphocytes % (Manual) Monocytes % (Manual) Nucleated RBC % Seg Neutrophils # Seg Neutrophils # Man Lymphocytes # (Manual) Monocytes # (Manual) Basophils # (Manual) PT INR D-Dimer 1419.14 H ABG pH ABG pO2 ABG HCO3 ABG O2 Saturation ABG Base Excess ABG Hemoglobin Oxyhemoglobin Sodium Potassium Chloride Carbon Dioxide BUN Creatinine Glucose POC Glucose Lactic Acid Calcium Magnesium Iron TIBC Ferritin 1719.0 H AST ALT Lactate Dehydrogenase 234 H Troponin T C-Reactive Protein 15.50 H Total Protein Albumin Prealbumin Cholesterol LDL Cholesterol Direct HDL Cholesterol Urine WBC (Auto) Vancomycin Trough Coronavirus (PCR) Crossmatch 07/04/19 07/04/19 07/04/19 10:09 18:08 18:28 WBC RBC Hgb Hct MCV MCH MCHC RDW Plt Count Lymph % (Auto) [place] % (Auto) Lymph # [place] # Baso # Seg Neutrophils % Seg Neuts % (Manual) Lymphocytes % (Manual) Monocytes % (Manual) Nucleated RBC % Seg Neutrophils # Seg Neutrophils # Man Lymphocytes # (Manual) Monocytes # (Manual) Basophils # (Manual) PT INR D-Dimer ABG pH ABG pO2 ABG HCO3 ABG O2 Saturation ABG Base Excess ABG Hemoglobin Oxyhemoglobin Sodium 117 L* Potassium 5.6 H Chloride 90.3 L Carbon Dioxide 16 L BUN 28 H Creatinine 0.5 L Glucose 58 L POC Glucose 65 L Lactic Acid Calcium 8.2 L Magnesium Iron TIBC Ferritin AST ALT Lactate Dehydrogenase Troponin T C-Reactive Protein Total Protein Albumin Prealbumin Cholesterol LDL Cholesterol Direct HDL Cholesterol Urine WBC (Auto) Vancomycin Trough Coronavirus (PCR) Positive A Crossmatch 07/04/19 07/04/19 07/04/19 23:45 Unknown Unknown WBC RBC Hgb Hct MCV MCH MCHC RDW Plt Count Lymph % (Auto) [place] % (Auto) Lymph # [place] # Baso # Seg Neutrophils % Seg Neuts % (Manual) Lymphocytes % (Manual) Monocytes % (Manual) Nucleated RBC % Seg Neutrophils # Seg Neutrophils # Man Lymphocytes # (Manual) Monocytes # (Manual) Basophils # (Manual) PT INR D-Dimer 759.77 H ABG pH ABG pO2 ABG HCO3 ABG O2 Saturation ABG Base Excess ABG Hemoglobin Oxyhemoglobin Sodium 122 L Potassium Chloride 93.0 L Carbon Dioxide 19 L BUN 27 H Creatinine 0.5 L Glucose POC Glucose Lactic Acid Calcium 8.3 L Magnesium Iron TIBC Ferritin 1301.0 H AST ALT Lactate Dehydrogenase Troponin T C-Reactive Protein Total Protein Albumin Prealbumin Cholesterol LDL Cholesterol Direct HDL Cholesterol Urine WBC (Auto) Vancomycin Trough Coronavirus (PCR) Crossmatch 07/04/19 07/05/19 07/05/19 Unknown 03:20 04:00 WBC RBC Hgb Hct MCV MCH MCHC RDW Plt Count Lymph % (Auto) [place] % (Auto) Lymph # [place] # Baso # Seg Neutrophils % Seg Neuts % (Manual) Lymphocytes % (Manual) Monocytes % (Manual) Nucleated RBC % Seg Neutrophils # Seg Neutrophils # Man Lymphocytes # (Manual) Monocytes # (Manual) Basophils # (Manual) PT INR D-Dimer ABG pH ABG pO2 60.6 L ABG HCO3 ABG O2 Saturation 93.5 L ABG Base Excess -2.4 L ABG Hemoglobin 6.9 L Oxyhemoglobin 92.0 L Sodium 125 L Potassium Chloride 92.6 L Carbon Dioxide 19 L BUN 24 H Creatinine 0.6 L Glucose POC Glucose Lactic Acid Calcium 8.2 L Magnesium 1.40 L Iron TIBC Ferritin AST ALT Lactate Dehydrogenase 242 H Troponin T C-Reactive Protein 16.70 H Total Protein Albumin Prealbumin Cholesterol LDL Cholesterol Direct HDL Cholesterol Urine WBC (Auto) Vancomycin Trough Coronavirus (PCR) Crossmatch 07/05/19 07/05/19 07/05/19 10:11 16:15 17:54 WBC 46.4 H* RBC 2.77 L Hgb 7.2 L Hct 21.9 L MCV 79 L MCH 26 L MCHC RDW 19.0 H Plt Count Lymph % (Auto) [place] % (Auto) Lymph # [place] # Baso # Seg Neutrophils % Seg Neuts % (Manual) 82.0 H Lymphocytes % (Manual) 1.0 L Monocytes % (Manual) Nucleated RBC % Seg Neutrophils # Seg Neutrophils # Man 38.0 H Lymphocytes # (Manual) 0.5 L Monocytes # (Manual) Basophils # (Manual) PT INR D-Dimer ABG pH ABG pO2 ABG HCO3 ABG O2 Saturation ABG Base Excess ABG Hemoglobin Oxyhemoglobin Sodium Potassium Chloride Carbon Dioxide BUN Creatinine Glucose POC Glucose 69 L Lactic Acid Calcium Magnesium Iron TIBC Ferritin AST ALT Lactate Dehydrogenase Troponin T C-Reactive Protein Total Protein Albumin Prealbumin Cholesterol LDL Cholesterol Direct HDL Cholesterol Urine WBC (Auto) Vancomycin Trough 23.2 H Coronavirus (PCR) Crossmatch 07/05/19 07/06/19 07/06/19 19:58 00:27 00:27 WBC RBC Hgb Hct MCV MCH MCHC RDW Plt Count Lymph % (Auto) [place] % (Auto) Lymph # [place] # Baso # Seg Neutrophils % Seg Neuts % (Manual) Lymphocytes % (Manual) Monocytes % (Manual) Nucleated RBC % Seg Neutrophils # Seg Neutrophils # Man Lymphocytes # (Manual) Monocytes # (Manual) Basophils # (Manual) PT INR D-Dimer 1333.22 H ABG pH ABG pO2 ABG HCO3 ABG O2 Saturation ABG Base Excess ABG Hemoglobin Oxyhemoglobin Sodium 127 L Potassium Chloride Carbon Dioxide BUN Creatinine Glucose POC Glucose Lactic Acid Calcium Magnesium Iron TIBC Ferritin 977.1 H AST ALT Lactate Dehydrogenase Troponin T C-Reactive Protein Total Protein Albumin Prealbumin Cholesterol LDL Cholesterol Direct HDL Cholesterol Urine WBC (Auto) Vancomycin Trough Coronavirus (PCR) Crossmatch 07/06/19 07/06/19 07/06/19 00:27 02:00 02:56 WBC RBC Hgb Hct MCV MCH MCHC RDW Plt Count Lymph % (Auto) [place] % (Auto) Lymph # [place] # Baso # Seg Neutrophils % Seg Neuts % (Manual) Lymphocytes % (Manual) Monocytes % (Manual) Nucleated RBC % Seg Neutrophils # Seg Neutrophils # Man Lymphocytes # (Manual) Monocytes # (Manual) Basophils # (Manual) PT INR D-Dimer ABG pH ABG pO2 70.3 L ABG HCO3 ABG O2 Saturation 94.8 L ABG Base Excess ABG Hemoglobin 8.0 L Oxyhemoglobin 93.2 L Sodium Potassium Chloride Carbon Dioxide BUN Creatinine Glucose POC Glucose 117 H Lactic Acid Calcium Magnesium Iron TIBC Ferritin AST ALT Lactate Dehydrogenase 236 H Troponin T C-Reactive Protein 22.90 H Total Protein Albumin Prealbumin Cholesterol LDL Cholesterol Direct HDL Cholesterol Urine WBC (Auto) Vancomycin Trough Coronavirus (PCR) Crossmatch 07/06/19 07/06/19 07/06/19 03:49 03:49 07:40 WBC 38.8 H RBC 2.51 L Hgb 6.7 L Hct 19.9 L* MCV 79 L MCH 27 L MCHC RDW 19.2 H Plt Count Lymph % (Auto) [place] % (Auto) Lymph # [place] # Baso # Seg Neutrophils % Seg Neuts % (Manual) 90.5 H Lymphocytes % (Manual) 1.0 L Monocytes % (Manual) Nucleated RBC % Seg Neutrophils # Seg Neutrophils # Man 35.1 H Lymphocytes # (Manual) 0.4 L Monocytes # (Manual) Basophils # (Manual) PT INR D-Dimer ABG pH ABG pO2 ABG HCO3 ABG O2 Saturation ABG Base Excess ABG Hemoglobin Oxyhemoglobin Sodium 131 L Potassium Chloride 96.9 L Carbon Dioxide 18 L BUN 23 H Creatinine 0.5 L Glucose POC Glucose Lactic Acid Calcium 8.0 L Magnesium Iron TIBC Ferritin AST ALT Lactate Dehydrogenase Troponin T C-Reactive Protein Total Protein Albumin Prealbumin Cholesterol LDL Cholesterol Direct HDL Cholesterol Urine WBC (Auto) Vancomycin Trough Coronavirus (PCR) Crossmatch See Detail 07/06/19 07/06/19 07/06/19 12:38 14:39 20:00 WBC RBC Hgb Hct MCV MCH MCHC RDW Plt Count Lymph % (Auto) [place] % (Auto) Lymph # [place] # Baso # Seg Neutrophils % Seg Neuts % (Manual) Lymphocytes % (Manual) Monocytes % (Manual) Nucleated RBC % Seg Neutrophils # Seg Neutrophils # Man Lymphocytes # (Manual) Monocytes # (Manual) Basophils # (Manual) PT INR D-Dimer ABG pH ABG pO2 ABG HCO3 ABG O2 Saturation ABG Base Excess ABG Hemoglobin Oxyhemoglobin Sodium Potassium Chloride Carbon Dioxide BUN Creatinine Glucose POC Glucose 112 H 111 H 140 H Lactic Acid Calcium Magnesium Iron TIBC Ferritin AST ALT Lactate Dehydrogenase Troponin T C-Reactive Protein Total Protein Albumin Prealbumin Cholesterol LDL Cholesterol Direct HDL Cholesterol Urine WBC (Auto) Vancomycin Trough Coronavirus (PCR) Crossmatch 07/06/19 07/06/19 07/07/19 22:43 22:56 02:20 WBC RBC Hgb 7.9 L Hct 23.1 L MCV MCH MCHC RDW Plt Count Lymph % (Auto) [place] % (Auto) Lymph # [place] # Baso # Seg Neutrophils % Seg Neuts % (Manual) Lymphocytes % (Manual) Monocytes % (Manual) Nucleated RBC % Seg Neutrophils # Seg Neutrophils # Man Lymphocytes # (Manual) Monocytes # (Manual) Basophils # (Manual) PT INR D-Dimer ABG pH ABG pO2 ABG HCO3 ABG O2 Saturation ABG Base Excess ABG Hemoglobin Oxyhemoglobin Sodium Potassium Chloride Carbon Dioxide BUN Creatinine Glucose POC Glucose 122 H 149 H Lactic Acid Calcium Magnesium Iron TIBC Ferritin AST ALT Lactate Dehydrogenase Troponin T C-Reactive Protein Total Protein Albumin Prealbumin Cholesterol LDL Cholesterol Direct HDL Cholesterol Urine WBC (Auto) Vancomycin Trough Coronavirus (PCR) Crossmatch 07/07/19 07/07/19 07/07/19 04:35 05:27 05:34 WBC 23.1 H RBC 3.00 L Hgb 8.1 L Hct 24.2 L MCV 81 L MCH 27 L MCHC RDW 20.6 H Plt Count Lymph % (Auto) [place] % (Auto) Lymph # [place] # Baso # Seg Neutrophils % Seg Neuts % (Manual) 90.0 H Lymphocytes % (Manual) 2.0 L Monocytes % (Manual) Nucleated RBC % Seg Neutrophils # Seg Neutrophils # Man 20.8 H Lymphocytes # (Manual) 0.5 L Monocytes # (Manual) Basophils # (Manual) PT INR D-Dimer ABG pH ABG pO2 65.8 L ABG HCO3 ABG O2 Saturation 92.2 L ABG Base Excess ABG Hemoglobin 8.3 L Oxyhemoglobin 90.6 L Sodium Potassium Chloride Carbon Dioxide BUN Creatinine Glucose POC Glucose 132 H Lactic Acid Calcium Magnesium Iron TIBC Ferritin AST ALT Lactate Dehydrogenase Troponin T C-Reactive Protein Total Protein Albumin Prealbumin Cholesterol LDL Cholesterol Direct HDL Cholesterol Urine WBC (Auto) Vancomycin Trough Coronavirus (PCR) Crossmatch 07/07/19 07/07/19 07/07/19 05:34 11:50 15:58 WBC RBC Hgb 8.1 L Hct 24.2 L MCV MCH MCHC RDW Plt Count Lymph % (Auto) [place] % (Auto) Lymph # [place] # Baso # Seg Neutrophils % Seg Neuts % (Manual) Lymphocytes % (Manual) Monocytes % (Manual) Nucleated RBC % Seg Neutrophils # Seg Neutrophils # Man Lymphocytes # (Manual) Monocytes # (Manual) Basophils # (Manual) PT INR D-Dimer ABG pH ABG pO2 ABG HCO3 ABG O2 Saturation ABG Base Excess ABG Hemoglobin Oxyhemoglobin Sodium 135 L Potassium 3.3 L Chloride Carbon Dioxide 20 L BUN 27 H Creatinine 0.6 L Glucose 121 H POC Glucose 123 H Lactic Acid Calcium 8.0 L Magnesium Iron TIBC Ferritin AST ALT Lactate Dehydrogenase Troponin T C-Reactive Protein Total Protein Albumin Prealbumin Cholesterol LDL Cholesterol Direct HDL Cholesterol Urine WBC (Auto) Vancomycin Trough Coronavirus (PCR) Crossmatch 07/07/19 07/07/19 07/07/19 17:42 22:00 23:53 WBC RBC Hgb 8.0 L Hct 23.4 L MCV MCH MCHC RDW Plt Count Lymph % (Auto) [place] % (Auto) Lymph # [place] # Baso # Seg Neutrophils % Seg Neuts % (Manual) Lymphocytes % (Manual) Monocytes % (Manual) Nucleated RBC % Seg Neutrophils # Seg Neutrophils # Man Lymphocytes # (Manual) Monocytes # (Manual) Basophils # (Manual) PT INR D-Dimer ABG pH ABG pO2 ABG HCO3 ABG O2 Saturation ABG Base Excess ABG Hemoglobin Oxyhemoglobin Sodium Potassium Chloride Carbon Dioxide BUN Creatinine Glucose POC Glucose 107 H 117 H Lactic Acid Calcium Magnesium Iron TIBC Ferritin AST ALT Lactate Dehydrogenase Troponin T C-Reactive Protein Total Protein Albumin Prealbumin Cholesterol LDL Cholesterol Direct HDL Cholesterol Urine WBC (Auto) Vancomycin Trough Coronavirus (PCR) Crossmatch 07/08/19 07/08/19 07/08/19 00:45 00:45 00:45 WBC RBC Hgb Hct MCV MCH MCHC RDW Plt Count Lymph % (Auto) [place] % (Auto) Lymph # [place] # Baso # Seg Neutrophils % Seg Neuts % (Manual) Lymphocytes % (Manual) Monocytes % (Manual) Nucleated RBC % Seg Neutrophils # Seg Neutrophils # Man Lymphocytes # (Manual) Monocytes # (Manual) Basophils # (Manual) PT INR D-Dimer 1142.18 H ABG pH ABG pO2 ABG HCO3 ABG O2 Saturation ABG Base Excess ABG Hemoglobin Oxyhemoglobin Sodium Potassium Chloride Carbon Dioxide BUN Creatinine Glucose POC Glucose Lactic Acid Calcium Magnesium Iron TIBC Ferritin 839.0 H AST ALT Lactate Dehydrogenase 253 H Troponin T C-Reactive Protein 18.90 H Total Protein Albumin Prealbumin Cholesterol LDL Cholesterol Direct HDL Cholesterol Urine WBC (Auto) Vancomycin Trough Coronavirus (PCR) Crossmatch 07/08/19 07/08/19 07/08/19 04:30 05:11 12:02 WBC RBC Hgb Hct MCV MCH MCHC RDW Plt Count Lymph % (Auto) [place] % (Auto) Lymph # [place] # Baso # Seg Neutrophils % Seg Neuts % (Manual) Lymphocytes % (Manual) Monocytes % (Manual) Nucleated RBC % Seg Neutrophils # Seg Neutrophils # Man Lymphocytes # (Manual) Monocytes # (Manual) Basophils # (Manual) PT INR D-Dimer ABG pH ABG pO2 66.0 L ABG HCO3 ABG O2 Saturation 92.3 L ABG Base Excess ABG Hemoglobin 7.7 L Oxyhemoglobin 90.7 L Sodium Potassium Chloride Carbon Dioxide BUN Creatinine Glucose POC Glucose 108 H 153 H Lactic Acid Calcium Magnesium Iron TIBC Ferritin AST ALT Lactate Dehydrogenase Troponin T C-Reactive Protein Total Protein Albumin Prealbumin Cholesterol LDL Cholesterol Direct HDL Cholesterol Urine WBC (Auto) Vancomycin Trough Coronavirus (PCR) Crossmatch 07/08/19 07/08/19 07/08/19 16:15 18:22 23:35 WBC RBC Hgb Hct MCV MCH MCHC RDW Plt Count Lymph % (Auto) [place] % (Auto) Lymph # [place] # Baso # Seg Neutrophils % Seg Neuts % (Manual) Lymphocytes % (Manual) Monocytes % (Manual) Nucleated RBC % Seg Neutrophils # Seg Neutrophils # Man Lymphocytes # (Manual) Monocytes # (Manual) Basophils # (Manual) PT INR D-Dimer ABG pH ABG pO2 ABG HCO3 ABG O2 Saturation ABG Base Excess ABG Hemoglobin Oxyhemoglobin Sodium 134 L Potassium 3.3 L Chloride Carbon Dioxide 21 L BUN 27 H Creatinine 0.6 L Glucose 146 H POC Glucose 134 H 133 H Lactic Acid Calcium Magnesium Iron TIBC Ferritin AST ALT Lactate Dehydrogenase Troponin T C-Reactive Protein Total Protein Albumin Prealbumin Cholesterol LDL Cholesterol Direct HDL Cholesterol Urine WBC (Auto) Vancomycin Trough Coronavirus (PCR) Crossmatch 07/09/19 07/09/19 07/09/19 04:30 04:30 05:00 WBC 18.9 H RBC 2.77 L Hgb 7.4 L Hct 22.8 L MCV 82 L MCH 27 L MCHC RDW 20.9 H Plt Count 130 L Lymph % (Auto) [place] % (Auto) Lymph # [place] # Baso # Seg Neutrophils % Seg Neuts % (Manual) 84.0 H Lymphocytes % (Manual) 0 L Monocytes % (Manual) Nucleated RBC % Seg Neutrophils # Seg Neutrophils # Man 15.9 H Lymphocytes # (Manual) 0.0 L Monocytes # (Manual) Basophils # (Manual) PT INR D-Dimer ABG pH ABG pO2 ABG HCO3 ABG O2 Saturation ABG Base Excess ABG Hemoglobin Oxyhemoglobin Sodium Potassium 3.1 L Chloride Carbon Dioxide BUN 26 H Creatinine 0.5 L Glucose 125 H POC Glucose 155 H Lactic Acid Calcium Magnesium Iron TIBC Ferritin AST ALT Lactate Dehydrogenase Troponin T C-Reactive Protein Total Protein Albumin Prealbumin Cholesterol LDL Cholesterol Direct HDL Cholesterol Urine WBC (Auto) Vancomycin Trough Coronavirus (PCR) Crossmatch 07/09/19 07/09/19 07/09/19 05:55 12:22 17:50 WBC RBC Hgb Hct MCV MCH MCHC RDW Plt Count Lymph % (Auto) [place] % (Auto) Lymph # [place] # Baso # Seg Neutrophils % Seg Neuts % (Manual) Lymphocytes % (Manual) Monocytes % (Manual) Nucleated RBC % Seg Neutrophils # Seg Neutrophils # Man Lymphocytes # (Manual) Monocytes # (Manual) Basophils # (Manual) PT INR D-Dimer ABG pH ABG pO2 62.8 L ABG HCO3 ABG O2 Saturation ABG Base Excess ABG Hemoglobin 6.1 L Oxyhemoglobin 93.9 L Sodium Potassium Chloride Carbon Dioxide BUN Creatinine Glucose POC Glucose 115 H 133 H Lactic Acid Calcium Magnesium Iron TIBC Ferritin AST ALT Lactate Dehydrogenase Troponin T C-Reactive Protein Total Protein Albumin Prealbumin Cholesterol LDL Cholesterol Direct HDL Cholesterol Urine WBC (Auto) Vancomycin Trough Coronavirus (PCR) Crossmatch 07/10/19 07/10/19 07/10/19 00:38 04:00 04:00 WBC RBC Hgb Hct MCV MCH MCHC RDW Plt Count Lymph % (Auto) [place] % (Auto) Lymph # [place] # Baso # Seg Neutrophils % Seg Neuts % (Manual) Lymphocytes % (Manual) Monocytes % (Manual) Nucleated RBC % Seg Neutrophils # Seg Neutrophils # Man Lymphocytes # (Manual) Monocytes # (Manual) Basophils # (Manual) PT INR D-Dimer ABG pH ABG pO2 ABG HCO3 ABG O2 Saturation ABG Base Excess ABG Hemoglobin Oxyhemoglobin Sodium Potassium Chloride 107.9 H Carbon Dioxide BUN 26 H Creatinine 0.4 L Glucose 137 H POC Glucose 122 H Lactic Acid Calcium Magnesium 1.50 L Iron TIBC Ferritin AST ALT Lactate Dehydrogenase 277 H Troponin T C-Reactive Protein 15.10 H Total Protein Albumin Prealbumin Cholesterol LDL Cholesterol Direct HDL Cholesterol Urine WBC (Auto) Vancomycin Trough Coronavirus (PCR) Crossmatch 07/10/19 07/10/19 07/10/19 04:07 05:21 17:25 WBC RBC Hgb Hct MCV MCH MCHC RDW Plt Count Lymph % (Auto) [place] % (Auto) Lymph # [place] # Baso # Seg Neutrophils % Seg Neuts % (Manual) Lymphocytes % (Manual) Monocytes % (Manual) Nucleated RBC % Seg Neutrophils # Seg Neutrophils # Man Lymphocytes # (Manual) Monocytes # (Manual) Basophils # (Manual) PT INR D-Dimer ABG pH ABG pO2 65.6 L ABG HCO3 26.3 H ABG O2 Saturation ABG Base Excess ABG Hemoglobin 6.7 L Oxyhemoglobin Sodium Potassium Chloride Carbon Dioxide BUN Creatinine Glucose POC Glucose 144 H 113 H Lactic Acid Calcium Magnesium Iron TIBC Ferritin AST ALT Lactate Dehydrogenase Troponin T C-Reactive Protein Total Protein Albumin Prealbumin Cholesterol LDL Cholesterol Direct HDL Cholesterol Urine WBC (Auto) Vancomycin Trough Coronavirus (PCR) Crossmatch 07/11/19 07/11/19 07/11/19 00:07 05:14 05:25 WBC RBC Hgb Hct MCV MCH MCHC RDW Plt Count Lymph % (Auto) [place] % (Auto) Lymph # [place] # Baso # Seg Neutrophils % Seg Neuts % (Manual) Lymphocytes % (Manual) Monocytes % (Manual) Nucleated RBC % Seg Neutrophils # Seg Neutrophils # Man Lymphocytes # (Manual) Monocytes # (Manual) Basophils # (Manual) PT INR D-Dimer ABG pH ABG pO2 ABG HCO3 ABG O2 Saturation ABG Base Excess ABG Hemoglobin 5.8 L Oxyhemoglobin Sodium Potassium Chloride 108.0 H Carbon Dioxide BUN 26 H Creatinine 0.4 L Glucose 110 H POC Glucose 121 H Lactic Acid Calcium Magnesium Iron TIBC Ferritin AST ALT Lactate Dehydrogenase Troponin T C-Reactive Protein Total Protein Albumin Prealbumin Cholesterol LDL Cholesterol Direct HDL Cholesterol Urine WBC (Auto) Vancomycin Trough Coronavirus (PCR) Crossmatch 07/11/19 07/11/19 07/11/19 12:27 18:00 23:42 WBC RBC Hgb Hct MCV MCH MCHC RDW Plt Count Lymph % (Auto) [place] % (Auto) Lymph # [place] # Baso # Seg Neutrophils % Seg Neuts % (Manual) Lymphocytes % (Manual) Monocytes % (Manual) Nucleated RBC % Seg Neutrophils # Seg Neutrophils # Man Lymphocytes # (Manual) Monocytes # (Manual) Basophils # (Manual) PT INR D-Dimer ABG pH ABG pO2 ABG HCO3 ABG O2 Saturation ABG Base Excess ABG Hemoglobin Oxyhemoglobin Sodium Potassium Chloride Carbon Dioxide BUN Creatinine Glucose POC Glucose 158 H 141 H 142 H Lactic Acid Calcium Magnesium Iron TIBC Ferritin AST ALT Lactate Dehydrogenase Troponin T C-Reactive Protein Total Protein Albumin Prealbumin Cholesterol LDL Cholesterol Direct HDL Cholesterol Urine WBC (Auto) Vancomycin Trough Coronavirus (PCR) Crossmatch 07/12/19 07/12/19 07/12/19 04:46 04:46 05:23 WBC 23.6 H RBC 2.51 L Hgb 6.7 L Hct 20.8 L MCV 83 L MCH 27 L MCHC RDW 20.3 H Plt Count Lymph % (Auto) [place] % (Auto) Lymph # [place] # Baso # Seg Neutrophils % Seg Neuts % (Manual) 94.0 H Lymphocytes % (Manual) 4.0 L Monocytes % (Manual) Nucleated RBC % Seg Neutrophils # Seg Neutrophils # Man 22.2 H Lymphocytes # (Manual) 0.9 L Monocytes # (Manual) Basophils # (Manual) PT INR D-Dimer ABG pH ABG pO2 ABG HCO3 ABG O2 Saturation ABG Base Excess ABG Hemoglobin Oxyhemoglobin Sodium Potassium Chloride 107.1 H Carbon Dioxide BUN 25 H Creatinine 0.4 L Glucose 122 H POC Glucose 118 H Lactic Acid Calcium Magnesium Iron TIBC Ferritin AST ALT Lactate Dehydrogenase Troponin T C-Reactive Protein Total Protein Albumin Prealbumin Cholesterol LDL Cholesterol Direct HDL Cholesterol Urine WBC (Auto) Vancomycin Trough Coronavirus (PCR) Crossmatch 07/12/19 07/12/19 07/12/19 08:49 11:36 18:15 WBC RBC Hgb Hct MCV MCH MCHC RDW Plt Count Lymph % (Auto) [place] % (Auto) Lymph # [place] # Baso # Seg Neutrophils % Seg Neuts % (Manual) Lymphocytes % (Manual) Monocytes % (Manual) Nucleated RBC % Seg Neutrophils # Seg Neutrophils # Man Lymphocytes # (Manual) Monocytes # (Manual) Basophils # (Manual) PT INR D-Dimer ABG pH ABG pO2 ABG HCO3 ABG O2 Saturation ABG Base Excess ABG Hemoglobin Oxyhemoglobin Sodium Potassium Chloride Carbon Dioxide BUN Creatinine Glucose POC Glucose 124 H 110 H Lactic Acid Calcium Magnesium Iron TIBC Ferritin AST ALT Lactate Dehydrogenase Troponin T C-Reactive Protein Total Protein Albumin Prealbumin Cholesterol LDL Cholesterol Direct HDL Cholesterol Urine WBC (Auto) Vancomycin Trough Coronavirus (PCR) Crossmatch See Detail 07/12/19 07/13/19 07/13/19 23:16 05:26 06:50 WBC 23.9 H RBC 2.58 L Hgb 6.9 L Hct 21.5 L MCV 83 L MCH 27 L MCHC RDW 19.0 H Plt Count Lymph % (Auto) [place] % (Auto) Lymph # [place] # Baso # Seg Neutrophils % Seg Neuts % (Manual) 96.0 H Lymphocytes % (Manual) 3.0 L Monocytes % (Manual) Nucleated RBC % Seg Neutrophils # Seg Neutrophils # Man 22.9 H Lymphocytes # (Manual) 0.7 L Monocytes # (Manual) Basophils # (Manual) PT INR D-Dimer ABG pH ABG pO2 ABG HCO3 ABG O2 Saturation ABG Base Excess ABG Hemoglobin Oxyhemoglobin Sodium Potassium Chloride Carbon Dioxide BUN Creatinine Glucose POC Glucose 108 H 126 H Lactic Acid Calcium Magnesium Iron TIBC Ferritin AST ALT Lactate Dehydrogenase Troponin T C-Reactive Protein Total Protein Albumin Prealbumin Cholesterol LDL Cholesterol Direct HDL Cholesterol Urine WBC (Auto) Vancomycin Trough Coronavirus (PCR) Crossmatch 07/13/19 07/13/19 07/13/19 06:50 12:38 18:05 WBC RBC Hgb Hct MCV MCH MCHC RDW Plt Count Lymph % (Auto) [place] % (Auto) Lymph # [place] # Baso # Seg Neutrophils % Seg Neuts % (Manual) Lymphocytes % (Manual) Monocytes % (Manual) Nucleated RBC % Seg Neutrophils # Seg Neutrophils # Man Lymphocytes # (Manual) Monocytes # (Manual) Basophils # (Manual) PT INR D-Dimer ABG pH ABG pO2 ABG HCO3 ABG O2 Saturation ABG Base Excess ABG Hemoglobin Oxyhemoglobin Sodium Potassium Chloride Carbon Dioxide BUN 33 H Creatinine 0.5 L Glucose 136 H POC Glucose 164 H 145 H Lactic Acid Calcium Magnesium Iron TIBC Ferritin AST ALT Lactate Dehydrogenase Troponin T C-Reactive Protein Total Protein Albumin Prealbumin Cholesterol LDL Cholesterol Direct HDL Cholesterol Urine WBC (Auto) Vancomycin Trough Coronavirus (PCR) Crossmatch 07/13/19 07/14/19 07/14/19 18:30 00:21 04:40 WBC 22.9 H RBC 2.45 L Hgb 6.6 L Hct 21.1 L MCV MCH 27 L MCHC 31 L RDW 19.2 H Plt Count Lymph % (Auto) [place] % (Auto) Lymph # [place] # Baso # Seg Neutrophils % Seg Neuts % (Manual) 91.0 H Lymphocytes % (Manual) 7.0 L Monocytes % (Manual) Nucleated RBC % Seg Neutrophils # Seg Neutrophils # Man 20.8 H Lymphocytes # (Manual) Monocytes # (Manual) Basophils # (Manual) PT INR D-Dimer ABG pH ABG pO2 58.1 L ABG HCO3 ABG O2 Saturation 88.7 L ABG Base Excess ABG Hemoglobin 7.8 L Oxyhemoglobin 86.8 L Sodium Potassium Chloride Carbon Dioxide BUN Creatinine Glucose POC Glucose 118 H Lactic Acid Calcium Magnesium Iron TIBC Ferritin AST ALT Lactate Dehydrogenase Troponin T C-Reactive Protein Total Protein Albumin Prealbumin Cholesterol LDL Cholesterol Direct HDL Cholesterol Urine WBC (Auto) Vancomycin Trough Coronavirus (PCR) Crossmatch 07/14/19 07/14/19 07/14/19 04:40 05:38 05:45 WBC RBC Hgb Hct MCV MCH MCHC RDW Plt Count Lymph % (Auto) [place] % (Auto) Lymph # [place] # Baso # Seg Neutrophils % Seg Neuts % (Manual) Lymphocytes % (Manual) Monocytes % (Manual) Nucleated RBC % Seg Neutrophils # Seg Neutrophils # Man Lymphocytes # (Manual) Monocytes # (Manual) Basophils # (Manual) PT INR D-Dimer ABG pH 7.230 L ABG pO2 72.1 L ABG HCO3 ABG O2 Saturation 89.3 L ABG Base Excess -2.7 L ABG Hemoglobin 6.7 L Oxyhemoglobin 87.7 L Sodium Potassium Chloride 107.4 H Carbon Dioxide BUN 45 H Creatinine Glucose 101 H POC Glucose 154 H Lactic Acid Calcium Magnesium Iron TIBC Ferritin AST ALT Lactate Dehydrogenase Troponin T C-Reactive Protein Total Protein Albumin Prealbumin Cholesterol LDL Cholesterol Direct HDL Cholesterol Urine WBC (Auto) Vancomycin Trough Coronavirus (PCR) Crossmatch 07/14/19 07/14/19 07/14/19 12:25 18:20 19:01 WBC 22.4 H RBC 2.70 L Hgb 7.5 L Hct 23.3 L MCV MCH MCHC RDW 19.5 H Plt Count Lymph % (Auto) [place] % (Auto) Lymph # [place] # Baso # Seg Neutrophils % Seg Neuts % (Manual) Lymphocytes % (Manual) Monocytes % (Manual) Nucleated RBC % Seg Neutrophils # Seg Neutrophils # Man Lymphocytes # (Manual) Monocytes # (Manual) Basophils # (Manual) PT INR D-Dimer ABG pH ABG pO2 ABG HCO3 ABG O2 Saturation ABG Base Excess ABG Hemoglobin Oxyhemoglobin Sodium Potassium Chloride Carbon Dioxide BUN Creatinine Glucose POC Glucose 136 H 131 H Lactic Acid Calcium Magnesium Iron TIBC Ferritin AST ALT Lactate Dehydrogenase Troponin T C-Reactive Protein Total Protein Albumin Prealbumin Cholesterol LDL Cholesterol Direct HDL Cholesterol Urine WBC (Auto) Vancomycin Trough Coronavirus (PCR) Crossmatch 07/15/19 07/15/19 07/15/19 00:17 04:35 05:18 WBC 20.6 H RBC 2.41 L Hgb 6.8 L Hct 20.7 L MCV MCH MCHC RDW 20.2 H Plt Count Lymph % (Auto) [place] % (Auto) Lymph # [place] # Baso # Seg Neutrophils % Seg Neuts % (Manual) 92.0 H Lymphocytes % (Manual) 5.0 L Monocytes % (Manual) Nucleated RBC % Seg Neutrophils # Seg Neutrophils # Man 19.0 H Lymphocytes # (Manual) 1.0 L Monocytes # (Manual) Basophils # (Manual) PT INR D-Dimer ABG pH 7.342 L ABG pO2 ABG HCO3 ABG O2 Saturation ABG Base Excess -3.1 L ABG Hemoglobin 7.2 L Oxyhemoglobin 94.9 L Sodium Potassium Chloride Carbon Dioxide BUN Creatinine Glucose POC Glucose 116 H Lactic Acid Calcium Magnesium Iron TIBC Ferritin AST ALT Lactate Dehydrogenase Troponin T C-Reactive Protein Total Protein Albumin Prealbumin Cholesterol LDL Cholesterol Direct HDL Cholesterol Urine WBC (Auto) Vancomycin Trough Coronavirus (PCR) Crossmatch 07/15/19 07/15/19 07/15/19 05:18 05:57 11:28 WBC RBC Hgb Hct MCV MCH MCHC RDW Plt Count Lymph % (Auto) [place] % (Auto) Lymph # [place] # Baso # Seg Neutrophils % Seg Neuts % (Manual) Lymphocytes % (Manual) Monocytes % (Manual) Nucleated RBC % Seg Neutrophils # Seg Neutrophils # Man Lymphocytes # (Manual) Monocytes # (Manual) Basophils # (Manual) PT INR D-Dimer ABG pH ABG pO2 ABG HCO3 ABG O2 Saturation ABG Base Excess ABG Hemoglobin Oxyhemoglobin Sodium Potassium Chloride Carbon Dioxide 20 L BUN 59 H Creatinine Glucose 140 H POC Glucose 139 H 117 H Lactic Acid Calcium Magnesium Iron TIBC Ferritin AST ALT Lactate Dehydrogenase Troponin T C-Reactive Protein Total Protein Albumin Prealbumin Cholesterol LDL Cholesterol Direct HDL Cholesterol Urine WBC (Auto) Vancomycin Trough Coronavirus (PCR) Crossmatch 07/15/19 07/16/19 07/16/19 18:13 00:06 03:43 WBC RBC Hgb Hct MCV MCH MCHC RDW Plt Count Lymph % (Auto) [place] % (Auto) Lymph # [place] # Baso # Seg Neutrophils % Seg Neuts % (Manual) Lymphocytes % (Manual) Monocytes % (Manual) Nucleated RBC % Seg Neutrophils # Seg Neutrophils # Man Lymphocytes # (Manual) Monocytes # (Manual) Basophils # (Manual) PT INR D-Dimer ABG pH 7.344 L ABG pO2 68.6 L ABG HCO3 ABG O2 Saturation ABG Base Excess -3.5 L ABG Hemoglobin 6.1 L Oxyhemoglobin 93.3 L Sodium Potassium Chloride Carbon Dioxide BUN Creatinine Glucose POC Glucose 114 H 119 H Lactic Acid Calcium Magnesium Iron TIBC Ferritin AST ALT Lactate Dehydrogenase Troponin T C-Reactive Protein Total Protein Albumin Prealbumin Cholesterol LDL Cholesterol Direct HDL Cholesterol Urine WBC (Auto) Vancomycin Trough Coronavirus (PCR) Crossmatch 07/16/19 07/16/19 07/16/19 04:41 04:41 12:09 WBC 19.6 H RBC 2.81 L Hgb 7.7 L Hct 24.0 L MCV MCH 27 L MCHC RDW 19.4 H Plt Count 514 H Lymph % (Auto) 6.7 L [place] % (Auto) Lymph # [place] # 1.0 H Baso # Seg Neutrophils % 87.0 H Seg Neuts % (Manual) Lymphocytes % (Manual) Monocytes % (Manual) Nucleated RBC % Seg Neutrophils # 17.0 H Seg Neutrophils # Man Lymphocytes # (Manual) Monocytes # (Manual) Basophils # (Manual) PT INR D-Dimer ABG pH ABG pO2 ABG HCO3 ABG O2 Saturation ABG Base Excess ABG Hemoglobin Oxyhemoglobin Sodium Potassium 5.9 H Chloride Carbon Dioxide 21 L BUN 73 H Creatinine 2.0 H Glucose POC Glucose 141 H Lactic Acid Calcium Magnesium Iron TIBC Ferritin AST ALT Lactate Dehydrogenase Troponin T C-Reactive Protein Total Protein Albumin Prealbumin Cholesterol LDL Cholesterol Direct HDL Cholesterol Urine WBC (Auto) Vancomycin Trough Coronavirus (PCR) Crossmatch 07/16/19 07/16/19 07/17/19 16:19 17:45 00:16 WBC RBC Hgb Hct MCV MCH MCHC RDW Plt Count Lymph % (Auto) [place] % (Auto) Lymph # [place] # Baso # Seg Neutrophils % Seg Neuts % (Manual) Lymphocytes % (Manual) Monocytes % (Manual) Nucleated RBC % Seg Neutrophils # Seg Neutrophils # Man Lymphocytes # (Manual) Monocytes # (Manual) Basophils # (Manual) PT INR D-Dimer ABG pH ABG pO2 ABG HCO3 ABG O2 Saturation ABG Base Excess ABG Hemoglobin Oxyhemoglobin Sodium Potassium 5.1 H Chloride Carbon Dioxide 20 L BUN 72 H Creatinine 1.7 H Glucose 128 H POC Glucose 181 H 164 H Lactic Acid Calcium Magnesium Iron TIBC Ferritin AST ALT Lactate Dehydrogenase Troponin T C-Reactive Protein Total Protein Albumin Prealbumin Cholesterol LDL Cholesterol Direct HDL Cholesterol Urine WBC (Auto) Vancomycin Trough Coronavirus (PCR) Crossmatch 07/17/19 07/17/19 07/17/19 04:20 04:39 04:39 WBC 16.1 H RBC 2.92 L Hgb 8.0 L Hct 25.5 L MCV MCH MCHC 31 L RDW 19.7 H Plt Count 564 H Lymph % (Auto) 3.6 L [place] % (Auto) 7.4 H Lymph # 0.6 L [place] # 1.2 H Baso # Seg Neutrophils % 87.5 H Seg Neuts % (Manual) Lymphocytes % (Manual) Monocytes % (Manual) Nucleated RBC % Seg Neutrophils # 14.1 H Seg Neutrophils # Man Lymphocytes # (Manual) Monocytes # (Manual) Basophils # (Manual) PT INR D-Dimer ABG pH 7.231 L ABG pO2 95.3 H ABG HCO3 ABG O2 Saturation ABG Base Excess -5.0 L ABG Hemoglobin 7.9 L Oxyhemoglobin 94.8 L Sodium Potassium Chloride 107.8 H Carbon Dioxide 21 L BUN 68 H Creatinine Glucose POC Glucose Lactic Acid Calcium Magnesium Iron TIBC Ferritin AST ALT Lactate Dehydrogenase Troponin T C-Reactive Protein Total Protein Albumin Prealbumin Cholesterol LDL Cholesterol Direct HDL Cholesterol Urine WBC (Auto) Vancomycin Trough Coronavirus (PCR) Crossmatch 07/17/19 07/17/19 07/17/19 05:28 12:11 18:48 WBC RBC Hgb Hct MCV MCH MCHC RDW Plt Count Lymph % (Auto) [place] % (Auto) Lymph # [place] # Baso # Seg Neutrophils % Seg Neuts % (Manual) Lymphocytes % (Manual) Monocytes % (Manual) Nucleated RBC % Seg Neutrophils # Seg Neutrophils # Man Lymphocytes # (Manual) Monocytes # (Manual) Basophils # (Manual) PT INR D-Dimer ABG pH ABG pO2 ABG HCO3 ABG O2 Saturation ABG Base Excess ABG Hemoglobin Oxyhemoglobin Sodium Potassium Chloride Carbon Dioxide BUN Creatinine Glucose POC Glucose 121 H 125 H 174 H Lactic Acid Calcium Magnesium Iron TIBC Ferritin AST ALT Lactate Dehydrogenase Troponin T C-Reactive Protein Total Protein Albumin Prealbumin Cholesterol LDL Cholesterol Direct HDL Cholesterol Urine WBC (Auto) Vancomycin Trough Coronavirus (PCR) Crossmatch 07/17/19 07/17/19 07/18/19 19:55 23:57 02:30 WBC RBC Hgb Hct MCV MCH MCHC RDW Plt Count Lymph % (Auto) [place] % (Auto) Lymph # [place] # Baso # Seg Neutrophils % Seg Neuts % (Manual) Lymphocytes % (Manual) Monocytes % (Manual) Nucleated RBC % Seg Neutrophils # Seg Neutrophils # Man Lymphocytes # (Manual) Monocytes # (Manual) Basophils # (Manual) PT INR D-Dimer ABG pH 7.344 L 7.294 L ABG pO2 78.5 L 119.2 H ABG HCO3 ABG O2 Saturation ABG Base Excess -3.3 L -2.6 L ABG Hemoglobin 8.6 L 8.1 L Oxyhemoglobin 94.8 L Sodium Potassium Chloride Carbon Dioxide BUN Creatinine Glucose POC Glucose 148 H Lactic Acid Calcium Magnesium Iron TIBC Ferritin AST ALT Lactate Dehydrogenase Troponin T C-Reactive Protein Total Protein Albumin Prealbumin Cholesterol LDL Cholesterol Direct HDL Cholesterol Urine WBC (Auto) Vancomycin Trough Coronavirus (PCR) Crossmatch 07/18/19 07/18/19 07/18/19 04:49 05:22 05:22 WBC 15.9 H RBC 3.00 L Hgb 8.1 L Hct 26.0 L MCV MCH 27 L MCHC 31 L RDW 19.4 H Plt Count 733 H Lymph % (Auto) 6.3 L [place] % (Auto) 7.4 H Lymph # 1.0 L [place] # 1.2 H Baso # 0.2 H Seg Neutrophils % 83.8 H Seg Neuts % (Manual) Lymphocytes % (Manual) Monocytes % (Manual) Nucleated RBC % Seg Neutrophils # 13.3 H Seg Neutrophils # Man Lymphocytes # (Manual) Monocytes # (Manual) Basophils # (Manual) PT INR D-Dimer ABG pH ABG pO2 ABG HCO3 ABG O2 Saturation ABG Base Excess ABG Hemoglobin Oxyhemoglobin Sodium Potassium Chloride 110.6 H Carbon Dioxide BUN 61 H Creatinine Glucose 109 H POC Glucose 116 H Lactic Acid Calcium Magnesium Iron TIBC Ferritin AST ALT Lactate Dehydrogenase Troponin T C-Reactive Protein Total Protein Albumin Prealbumin Cholesterol LDL Cholesterol Direct HDL Cholesterol Urine WBC (Auto) Vancomycin Trough Coronavirus (PCR) Crossmatch 07/18/19 07/18/19 07/18/19 12:23 18:06 22:20 WBC RBC Hgb Hct MCV MCH MCHC RDW Plt Count Lymph % (Auto) [place] % (Auto) Lymph # [place] # Baso # Seg Neutrophils % Seg Neuts % (Manual) Lymphocytes % (Manual) Monocytes % (Manual) Nucleated RBC % Seg Neutrophils # Seg Neutrophils # Man Lymphocytes # (Manual) Monocytes # (Manual) Basophils # (Manual) PT INR D-Dimer ABG pH 7.338 L ABG pO2 135.1 H ABG HCO3 ABG O2 Saturation ABG Base Excess ABG Hemoglobin 9.2 L Oxyhemoglobin Sodium Potassium Chloride Carbon Dioxide BUN Creatinine Glucose POC Glucose 114 H 113 H Lactic Acid Calcium Magnesium Iron TIBC Ferritin AST ALT Lactate Dehydrogenase Troponin T C-Reactive Protein Total Protein Albumin Prealbumin Cholesterol LDL Cholesterol Direct HDL Cholesterol Urine WBC (Auto) Vancomycin Trough Coronavirus (PCR) Crossmatch 07/18/19 07/19/19 07/19/19 23:33 03:45 05:18 WBC RBC Hgb Hct MCV MCH MCHC RDW Plt Count Lymph % (Auto) [place] % (Auto) Lymph # [place] # Baso # Seg Neutrophils % Seg Neuts % (Manual) Lymphocytes % (Manual) Monocytes % (Manual) Nucleated RBC % Seg Neutrophils # Seg Neutrophils # Man Lymphocytes # (Manual) Monocytes # (Manual) Basophils # (Manual) PT INR D-Dimer ABG pH 7.342 L ABG pO2 95.0 H ABG HCO3 ABG O2 Saturation ABG Base Excess ABG Hemoglobin 8.5 L Oxyhemoglobin Sodium Potassium Chloride Carbon Dioxide BUN Creatinine Glucose POC Glucose 125 H 111 H Lactic Acid Calcium Magnesium Iron TIBC Ferritin AST ALT Lactate Dehydrogenase Troponin T C-Reactive Protein Total Protein Albumin Prealbumin Cholesterol LDL Cholesterol Direct HDL Cholesterol Urine WBC (Auto) Vancomycin Trough Coronavirus (PCR) Crossmatch 07/19/19 07/19/19 07/19/19 08:45 08:45 11:47 WBC 15.9 H RBC 3.31 L Hgb 9.1 L Hct 28.4 L MCV MCH 27 L MCHC RDW 19.1 H Plt Count 858 H Lymph % (Auto) 4.9 L [place] % (Auto) 8.1 H Lymph # 0.8 L [place] # 1.3 H Baso # Seg Neutrophils % 85.5 H Seg Neuts % (Manual) Lymphocytes % (Manual) Monocytes % (Manual) Nucleated RBC % Seg Neutrophils # 13.6 H Seg Neutrophils # Man Lymphocytes # (Manual) Monocytes # (Manual) Basophils # (Manual) PT INR D-Dimer ABG pH ABG pO2 ABG HCO3 ABG O2 Saturation ABG Base Excess ABG Hemoglobin Oxyhemoglobin Sodium Potassium Chloride 111.6 H Carbon Dioxide BUN 50 H Creatinine 0.7 L Glucose 118 H POC Glucose 114 H Lactic Acid Calcium Magnesium Iron TIBC Ferritin AST ALT Lactate Dehydrogenase Troponin T C-Reactive Protein Total Protein Albumin Prealbumin Cholesterol LDL Cholesterol Direct HDL Cholesterol Urine WBC (Auto) Vancomycin Trough Coronavirus (PCR) Crossmatch 07/19/19 07/19/19 07/20/19 18:25 23:44 04:39 WBC RBC Hgb Hct MCV MCH MCHC RDW Plt Count Lymph % (Auto) [place] % (Auto) Lymph # [place] # Baso # Seg Neutrophils % Seg Neuts % (Manual) Lymphocytes % (Manual) Monocytes % (Manual) Nucleated RBC % Seg Neutrophils # Seg Neutrophils # Man Lymphocytes # (Manual) Monocytes # (Manual) Basophils # (Manual) PT INR D-Dimer ABG pH ABG pO2 ABG HCO3 ABG O2 Saturation ABG Base Excess ABG Hemoglobin Oxyhemoglobin Sodium Potassium Chloride 110.3 H Carbon Dioxide BUN 44 H Creatinine 0.6 L Glucose 120 H POC Glucose 115 H 117 H Lactic Acid Calcium Magnesium Iron TIBC Ferritin AST ALT Lactate Dehydrogenase Troponin T C-Reactive Protein Total Protein Albumin Prealbumin Cholesterol LDL Cholesterol Direct HDL Cholesterol Urine WBC (Auto) Vancomycin Trough Coronavirus (PCR) Crossmatch 07/20/19 07/21/19 07/21/19 05:30 11:59 17:40 WBC RBC Hgb Hct MCV MCH MCHC RDW Plt Count Lymph % (Auto) [place] % (Auto) Lymph # [place] # Baso # Seg Neutrophils % Seg Neuts % (Manual) Lymphocytes % (Manual) Monocytes % (Manual) Nucleated RBC % Seg Neutrophils # Seg Neutrophils # Man Lymphocytes # (Manual) Monocytes # (Manual) Basophils # (Manual) PT INR D-Dimer ABG pH ABG pO2 ABG HCO3 ABG O2 Saturation ABG Base Excess ABG Hemoglobin Oxyhemoglobin Sodium Potassium Chloride Carbon Dioxide BUN Creatinine Glucose POC Glucose 131 H 122 H 125 H Lactic Acid Calcium Magnesium Iron TIBC Ferritin AST ALT Lactate Dehydrogenase Troponin T C-Reactive Protein Total Protein Albumin Prealbumin Cholesterol LDL Cholesterol Direct HDL Cholesterol Urine WBC (Auto) Vancomycin Trough Coronavirus (PCR) Crossmatch 07/22/19 07/22/19 07/22/19 05:38 05:38 12:29 WBC 12.6 H RBC 3.19 L Hgb 8.9 L Hct 27.5 L MCV MCH MCHC RDW 18.9 H Plt Count 1101 H* Lymph % (Auto) [place] % (Auto) 12.2 H Lymph # [place] # 1.5 H Baso # Seg Neutrophils % 72.8 H Seg Neuts % (Manual) 76.0 H Lymphocytes % (Manual) 7.0 L Monocytes % (Manual) 14.0 H Nucleated RBC % 1.0 H Seg Neutrophils # 9.2 H Seg Neutrophils # Man 9.6 H Lymphocytes # (Manual) 0.9 L Monocytes # (Manual) 1.8 H Basophils # (Manual) PT INR D-Dimer ABG pH ABG pO2 ABG HCO3 ABG O2 Saturation ABG Base Excess ABG Hemoglobin Oxyhemoglobin Sodium Potassium 3.4 L Chloride Carbon Dioxide BUN 29 H Creatinine 0.5 L Glucose POC Glucose 116 H Lactic Acid Calcium Magnesium Iron TIBC Ferritin AST ALT Lactate Dehydrogenase Troponin T C-Reactive Protein Total Protein Albumin Prealbumin Cholesterol LDL Cholesterol Direct HDL Cholesterol Urine WBC (Auto) Vancomycin Trough Coronavirus (PCR) Crossmatch 07/22/19 07/22/19 07/23/19 18:20 23:51 04:52 WBC RBC Hgb Hct MCV MCH MCHC RDW Plt Count Lymph % (Auto) [place] % (Auto) Lymph # [place] # Baso # Seg Neutrophils % Seg Neuts % (Manual) Lymphocytes % (Manual) Monocytes % (Manual) Nucleated RBC % Seg Neutrophils # Seg Neutrophils # Man Lymphocytes # (Manual) Monocytes # (Manual) Basophils # (Manual) PT INR D-Dimer ABG pH ABG pO2 ABG HCO3 ABG O2 Saturation ABG Base Excess ABG Hemoglobin Oxyhemoglobin Sodium Potassium Chloride Carbon Dioxide BUN 24 H Creatinine 0.4 L Glucose POC Glucose 107 H 110 H Lactic Acid Calcium Magnesium Iron TIBC Ferritin AST ALT Lactate Dehydrogenase Troponin T C-Reactive Protein Total Protein Albumin Prealbumin Cholesterol LDL Cholesterol Direct HDL Cholesterol Urine WBC (Auto) Vancomycin Trough Coronavirus (PCR) Crossmatch 07/23/19 07/23/19 07/24/19 06:00 23:15 04:40 WBC RBC Hgb Hct MCV MCH MCHC RDW Plt Count Lymph % (Auto) [place] % (Auto) Lymph # [place] # Baso # Seg Neutrophils % Seg Neuts % (Manual) Lymphocytes % (Manual) Monocytes % (Manual) Nucleated RBC % Seg Neutrophils # Seg Neutrophils # Man Lymphocytes # (Manual) Monocytes # (Manual) Basophils # (Manual) PT INR D-Dimer ABG pH ABG pO2 73.5 L ABG HCO3 27.0 H 28.5 H ABG O2 Saturation 94.5 L ABG Base Excess ABG Hemoglobin 9.4 L 8.9 L Oxyhemoglobin 94.0 L 92.7 L Sodium Potassium Chloride Carbon Dioxide BUN Creatinine Glucose POC Glucose 117 H Lactic Acid Calcium Magnesium Iron TIBC Ferritin AST ALT Lactate Dehydrogenase Troponin T C-Reactive Protein Total Protein Albumin Prealbumin Cholesterol LDL Cholesterol Direct HDL Cholesterol Urine WBC (Auto) Vancomycin Trough Coronavirus (PCR) Crossmatch 07/24/19 07/24/19 07/25/19 05:25 12:06 00:16 WBC RBC Hgb Hct MCV MCH MCHC RDW Plt Count Lymph % (Auto) [place] % (Auto) Lymph # [place] # Baso # Seg Neutrophils % Seg Neuts % (Manual) Lymphocytes % (Manual) Monocytes % (Manual) Nucleated RBC % Seg Neutrophils # Seg Neutrophils # Man Lymphocytes # (Manual) Monocytes # (Manual) Basophils # (Manual) PT INR D-Dimer ABG pH ABG pO2 ABG HCO3 ABG O2 Saturation ABG Base Excess ABG Hemoglobin Oxyhemoglobin Sodium Potassium Chloride Carbon Dioxide BUN Creatinine Glucose POC Glucose 114 H 108 H 106 H Lactic Acid Calcium Magnesium Iron TIBC Ferritin AST ALT Lactate Dehydrogenase Troponin T C-Reactive Protein Total Protein Albumin Prealbumin Cholesterol LDL Cholesterol Direct HDL Cholesterol Urine WBC (Auto) Vancomycin Trough Coronavirus (PCR) Crossmatch 07/25/19 07/25/19 07/25/19 05:14 05:14 05:17 WBC 17.8 H RBC 3.32 L Hgb 9.2 L Hct 28.6 L MCV MCH MCHC RDW 19.9 H Plt Count 994 H Lymph % (Auto) [place] % (Auto) Lymph # [place] # Baso # Seg Neutrophils % Seg Neuts % (Manual) 82.0 H Lymphocytes % (Manual) 5.0 L Monocytes % (Manual) Nucleated RBC % Seg Neutrophils # Seg Neutrophils # Man 14.6 H Lymphocytes # (Manual) 0.9 L Monocytes # (Manual) 1.2 H Basophils # (Manual) PT INR D-Dimer ABG pH ABG pO2 ABG HCO3 ABG O2 Saturation ABG Base Excess ABG Hemoglobin Oxyhemoglobin Sodium Potassium Chloride Carbon Dioxide BUN Creatinine 0.4 L Glucose 110 H POC Glucose 107 H Lactic Acid Calcium Magnesium Iron TIBC Ferritin AST ALT Lactate Dehydrogenase Troponin T C-Reactive Protein Total Protein Albumin Prealbumin Cholesterol LDL Cholesterol Direct HDL Cholesterol Urine WBC (Auto) Vancomycin Trough Coronavirus (PCR) Crossmatch 07/25/19 07/25/19 07/26/19 11:55 23:49 06:01 WBC RBC Hgb Hct MCV MCH MCHC RDW Plt Count Lymph % (Auto) [place] % (Auto) Lymph # [place] # Baso # Seg Neutrophils % Seg Neuts % (Manual) Lymphocytes % (Manual) Monocytes % (Manual) Nucleated RBC % Seg Neutrophils # Seg Neutrophils # Man Lymphocytes # (Manual) Monocytes # (Manual) Basophils # (Manual) PT INR D-Dimer ABG pH ABG pO2 ABG HCO3 ABG O2 Saturation ABG Base Excess ABG Hemoglobin Oxyhemoglobin Sodium Potassium Chloride Carbon Dioxide BUN Creatinine Glucose POC Glucose 123 H 118 H 106 H Lactic Acid Calcium Magnesium Iron TIBC Ferritin AST ALT Lactate Dehydrogenase Troponin T C-Reactive Protein Total Protein Albumin Prealbumin Cholesterol LDL Cholesterol Direct HDL Cholesterol Urine WBC (Auto) Vancomycin Trough Coronavirus (PCR) Crossmatch 07/26/19 07/27/19 07/27/19 17:02 00:28 05:16 WBC RBC Hgb Hct MCV MCH MCHC RDW Plt Count Lymph % (Auto) [place] % (Auto) Lymph # [place] # Baso # Seg Neutrophils % Seg Neuts % (Manual) Lymphocytes % (Manual) Monocytes % (Manual) Nucleated RBC % Seg Neutrophils # Seg Neutrophils # Man Lymphocytes # (Manual) Monocytes # (Manual) Basophils # (Manual) PT INR D-Dimer ABG pH ABG pO2 63.4 L ABG HCO3 31.3 H ABG O2 Saturation 92.7 L ABG Base Excess 6.3 H ABG Hemoglobin 7.6 L Oxyhemoglobin 90.9 L Sodium Potassium Chloride Carbon Dioxide BUN Creatinine Glucose POC Glucose 116 H 158 H Lactic Acid Calcium Magnesium Iron TIBC Ferritin AST ALT Lactate Dehydrogenase Troponin T C-Reactive Protein Total Protein Albumin Prealbumin Cholesterol LDL Cholesterol Direct HDL Cholesterol Urine WBC (Auto) Vancomycin Trough Coronavirus (PCR) Crossmatch 07/28/19 07/28/1907/27/20 10:13 10:13 23:54 WBC 18.5 H RBC 3.20 L Hgb 8.8 L Hct 26.8 L MCV MCH 27 L MCHC RDW 19.9 H Plt Count 730 H Lymph % (Auto) [place] % (Auto) Lymph # [place] # Baso # Seg Neutrophils % Seg Neuts % (Manual) Lymphocytes % (Manual) Monocytes % (Manual) Nucleated RBC % Seg Neutrophils # Seg Neutrophils # Man Lymphocytes # (Manual) Monocytes # (Manual) Basophils # (Manual) PT INR D-Dimer ABG pH ABG pO2 ABG HCO3 ABG O2 Saturation ABG Base Excess ABG Hemoglobin Oxyhemoglobin Sodium Potassium 3.2 L Chloride 97.5 L Carbon Dioxide 31 H BUN Creatinine 0.5 L Glucose POC Glucose 120 H Lactic Acid Calcium Magnesium Iron TIBC Ferritin AST ALT Lactate Dehydrogenase Troponin T C-Reactive Protein Total Protein Albumin Prealbumin Cholesterol LDL Cholesterol Direct HDL Cholesterol Urine WBC (Auto) Vancomycin Trough Coronavirus (PCR) Crossmatch 07/29/19 07/29/19 07/29/19 11:57 17:43 Unknown WBC RBC Hgb Hct MCV MCH MCHC RDW Plt Count Lymph % (Auto) [place] % (Auto) Lymph # [place] # Baso # Seg Neutrophils % Seg Neuts % (Manual) Lymphocytes % (Manual) Monocytes % (Manual) Nucleated RBC % Seg Neutrophils # Seg Neutrophils # Man Lymphocytes # (Manual) Monocytes # (Manual) Basophils # (Manual) PT INR D-Dimer ABG pH ABG pO2 ABG HCO3 ABG O2 Saturation ABG Base Excess ABG Hemoglobin Oxyhemoglobin Sodium Potassium Chloride Carbon Dioxide BUN Creatinine Glucose POC Glucose 112 H Lactic Acid Calcium Magnesium Iron TIBC Ferritin AST ALT Lactate Dehydrogenase Troponin T C-Reactive Protein Total Protein Albumin Prealbumin Cholesterol LDL Cholesterol Direct HDL Cholesterol Urine WBC (Auto) 63.0 H Vancomycin Trough Coronavirus (PCR) Positive A Crossmatch 07/30/19 07/30/19 07/30/19 00:20 04:35 04:35 WBC 24.3 H RBC 3.12 L Hgb 8.5 L Hct 26.3 L MCV MCH 27 L MCHC RDW 20.2 H Plt Count 550 H Lymph % (Auto) [place] % (Auto) Lymph # [place] # Baso # Seg Neutrophils % Seg Neuts % (Manual) Lymphocytes % (Manual) Monocytes % (Manual) Nucleated RBC % Seg Neutrophils # Seg Neutrophils # Man Lymphocytes # (Manual) Monocytes # (Manual) Basophils # (Manual) PT INR D-Dimer ABG pH ABG pO2 ABG HCO3 ABG O2 Saturation ABG Base Excess ABG Hemoglobin Oxyhemoglobin Sodium Potassium 3.0 L Chloride 96.3 L Carbon Dioxide 32 H BUN Creatinine 0.5 L Glucose POC Glucose 106 H Lactic Acid Calcium Magnesium Iron TIBC Ferritin AST ALT Lactate Dehydrogenase Troponin T C-Reactive Protein Total Protein Albumin Prealbumin Cholesterol LDL Cholesterol Direct HDL Cholesterol Urine WBC (Auto) Vancomycin Trough Coronavirus (PCR) Crossmatch 07/31/19 07/31/19 07/31/19 04:42 04:42 11:33 WBC 23.8 H RBC 3.10 L Hgb 8.4 L Hct 26.1 L MCV MCH 27 L MCHC RDW 19.6 H Plt Count 561 H Lymph % (Auto) [place] % (Auto) Lymph # [place] # Baso # Seg Neutrophils % Seg Neuts % (Manual) Lymphocytes % (Manual) Monocytes % (Manual) Nucleated RBC % Seg Neutrophils # Seg Neutrophils # Man Lymphocytes # (Manual) Monocytes # (Manual) Basophils # (Manual) PT INR D-Dimer ABG pH ABG pO2 ABG HCO3 ABG O2 Saturation ABG Base Excess ABG Hemoglobin Oxyhemoglobin Sodium 135 L Potassium Chloride 93.9 L Carbon Dioxide 32 H BUN Creatinine 0.4 L Glucose POC Glucose 116 H Lactic Acid Calcium Magnesium Iron TIBC Ferritin AST ALT Lactate Dehydrogenase Troponin T C-Reactive Protein Total Protein Albumin 1.6 L Prealbumin 0.037 L Cholesterol LDL Cholesterol Direct HDL Cholesterol Urine WBC (Auto) Vancomycin Trough Coronavirus (PCR) Crossmatch 07/31/19 08/01/19 08/01/19 23:33 04:57 04:57 WBC 26.7 H RBC 3.12 L Hgb 8.5 L Hct 26.3 L MCV MCH 27 L MCHC RDW 19.2 H Plt Count 602 H Lymph % (Auto) [place] % (Auto) Lymph # [place] # Baso # Seg Neutrophils % Seg Neuts % (Manual) 93.0 H Lymphocytes % (Manual) 2.0 L Monocytes % (Manual) Nucleated RBC % Seg Neutrophils # Seg Neutrophils # Man 24.8 H Lymphocytes # (Manual) 0.5 L Monocytes # (Manual) 1.1 H Basophils # (Manual) PT INR D-Dimer ABG pH ABG pO2 ABG HCO3 ABG O2 Saturation ABG Base Excess ABG Hemoglobin Oxyhemoglobin Sodium 132 L Potassium Chloride 93.8 L Carbon Dioxide 31 H BUN Creatinine 0.3 L Glucose POC Glucose 148 H Lactic Acid Calcium 8.1 L Magnesium Iron TIBC Ferritin AST ALT Lactate Dehydrogenase Troponin T C-Reactive Protein Total Protein Albumin Prealbumin Cholesterol LDL Cholesterol Direct HDL Cholesterol Urine WBC (Auto) Vancomycin Trough Coronavirus (PCR) Crossmatch 08/01/19 08/02/19 08/02/19 12:16 00:22 05:24 WBC RBC Hgb Hct MCV MCH MCHC RDW Plt Count Lymph % (Auto) [place] % (Auto) Lymph # [place] # Baso # Seg Neutrophils % Seg Neuts % (Manual) Lymphocytes % (Manual) Monocytes % (Manual) Nucleated RBC % Seg Neutrophils # Seg Neutrophils # Man Lymphocytes # (Manual) Monocytes # (Manual) Basophils # (Manual) PT INR D-Dimer ABG pH ABG pO2 ABG HCO3 ABG O2 Saturation ABG Base Excess ABG Hemoglobin Oxyhemoglobin Sodium Potassium Chloride Carbon Dioxide BUN Creatinine Glucose POC Glucose 120 H 119 H 113 H Lactic Acid Calcium Magnesium Iron TIBC Ferritin AST ALT Lactate Dehydrogenase Troponin T C-Reactive Protein Total Protein Albumin Prealbumin Cholesterol LDL Cholesterol Direct HDL Cholesterol Urine WBC (Auto) Vancomycin Trough Coronavirus (PCR) Crossmatch 08/03/19 08/03/19 08/03/19 05:20 12:01 23:48 WBC RBC Hgb Hct MCV MCH MCHC RDW Plt Count Lymph % (Auto) [place] % (Auto) Lymph # [place] # Baso # Seg Neutrophils % Seg Neuts % (Manual) Lymphocytes % (Manual) Monocytes % (Manual) Nucleated RBC % Seg Neutrophils # Seg Neutrophils # Man Lymphocytes # (Manual) Monocytes # (Manual) Basophils # (Manual) PT INR D-Dimer ABG pH ABG pO2 ABG HCO3 ABG O2 Saturation ABG Base Excess ABG Hemoglobin Oxyhemoglobin Sodium Potassium Chloride Carbon Dioxide BUN Creatinine Glucose POC Glucose 118 H 106 H 120 H Lactic Acid Calcium Magnesium Iron TIBC Ferritin AST ALT Lactate Dehydrogenase Troponin T C-Reactive Protein Total Protein Albumin Prealbumin Cholesterol LDL Cholesterol Direct HDL Cholesterol Urine WBC (Auto) Vancomycin Trough Coronavirus (PCR) Crossmatch 08/04/19 08/04/19 08/04/19 05:38 05:38 06:29 WBC 26.1 H RBC 2.77 L Hgb 7.5 L Hct 23.2 L MCV MCH 27 L MCHC RDW 19.2 H Plt Count 648 H Lymph % (Auto) [place] % (Auto) Lymph # [place] # Baso # Seg Neutrophils % Seg Neuts % (Manual) 90.5 H Lymphocytes % (Manual) 3.5 L Monocytes % (Manual) Nucleated RBC % Seg Neutrophils # Seg Neutrophils # Man 23.6 H Lymphocytes # (Manual) 0.9 L Monocytes # (Manual) 1.2 H Basophils # (Manual) PT INR D-Dimer ABG pH ABG pO2 ABG HCO3 ABG O2 Saturation ABG Base Excess ABG Hemoglobin Oxyhemoglobin Sodium 132 L Potassium 3.4 L D Chloride 92.7 L Carbon Dioxide 33 H BUN Creatinine 0.2 L Glucose POC Glucose 108 H Lactic Acid Calcium 8.1 L Magnesium Iron TIBC Ferritin AST ALT Lactate Dehydrogenase Troponin T C-Reactive Protein Total Protein Albumin Prealbumin Cholesterol LDL Cholesterol Direct HDL Cholesterol Urine WBC (Auto) Vancomycin Trough Coronavirus (PCR) Crossmatch 08/04/19 08/05/19 08/05/19 12:30 04:58 04:58 WBC 21.0 H RBC 2.63 L Hgb 7.2 L Hct 21.9 L MCV 83 L MCH 27 L MCHC RDW 18.9 H Plt Count 691 H Lymph % (Auto) [place] % (Auto) Lymph # [place] # Baso # Seg Neutrophils % Seg Neuts % (Manual) 86.0 H Lymphocytes % (Manual) 3.0 L Monocytes % (Manual) 10.0 H Nucleated RBC % Seg Neutrophils # Seg Neutrophils # Man 18.1 H Lymphocytes # (Manual) 0.6 L Monocytes # (Manual) 2.1 H Basophils # (Manual) PT INR D-Dimer ABG pH ABG pO2 ABG HCO3 ABG O2 Saturation ABG Base Excess ABG Hemoglobin Oxyhemoglobin Sodium 134 L Potassium 3.2 L Chloride 93.2 L Carbon Dioxide 34 H BUN 8 L Creatinine 0.3 L Glucose POC Glucose 138 H Lactic Acid Calcium 8.1 L Magnesium Iron TIBC Ferritin AST ALT Lactate Dehydrogenase Troponin T C-Reactive Protein Total Protein Albumin Prealbumin Cholesterol LDL Cholesterol Direct HDL Cholesterol Urine WBC (Auto) Vancomycin Trough Coronavirus (PCR) Crossmatch 08/05/19 08/05/19 08/05/19 11:53 17:57 23:58 WBC RBC Hgb Hct MCV MCH MCHC RDW Plt Count Lymph % (Auto) [place] % (Auto) Lymph # [place] # Baso # Seg Neutrophils % Seg Neuts % (Manual) Lymphocytes % (Manual) Monocytes % (Manual) Nucleated RBC % Seg Neutrophils # Seg Neutrophils # Man Lymphocytes # (Manual) Monocytes # (Manual) Basophils # (Manual) PT INR D-Dimer ABG pH ABG pO2 ABG HCO3 ABG O2 Saturation ABG Base Excess ABG Hemoglobin Oxyhemoglobin Sodium Potassium Chloride Carbon Dioxide BUN Creatinine Glucose POC Glucose 106 H 111 H 116 H Lactic Acid Calcium Magnesium Iron TIBC Ferritin AST ALT Lactate Dehydrogenase Troponin T C-Reactive Protein Total Protein Albumin Prealbumin Cholesterol LDL Cholesterol Direct HDL Cholesterol Urine WBC (Auto) Vancomycin Trough Coronavirus (PCR) Crossmatch 08/06/19 08/06/19 08/06/19 04:11 04:11 06:04 WBC 20.8 H RBC 2.80 L Hgb 7.6 L Hct 23.5 L MCV MCH 27 L MCHC RDW 19.0 H Plt Count 723 H Lymph % (Auto) [place] % (Auto) Lymph # [place] # Baso # Seg Neutrophils % Seg Neuts % (Manual) 88.0 H Lymphocytes % (Manual) 3.0 L Monocytes % (Manual) Nucleated RBC % Seg Neutrophils # Seg Neutrophils # Man 18.3 H Lymphocytes # (Manual) 0.6 L Monocytes # (Manual) Basophils # (Manual) 0.2 H PT INR D-Dimer ABG pH ABG pO2 ABG HCO3 ABG O2 Saturation ABG Base Excess ABG Hemoglobin Oxyhemoglobin Sodium Potassium 3.4 L Chloride 95.2 L Carbon Dioxide 32 H BUN Creatinine 0.3 L Glucose POC Glucose 108 H Lactic Acid Calcium 8.2 L Magnesium Iron TIBC Ferritin AST ALT Lactate Dehydrogenase Troponin T C-Reactive Protein Total Protein Albumin Prealbumin Cholesterol LDL Cholesterol Direct HDL Cholesterol Urine WBC (Auto) Vancomycin Trough Coronavirus (PCR) Crossmatch 08/06/19 08/06/19 08/07/19 12:23 17:13 00:21 WBC RBC Hgb Hct MCV MCH MCHC RDW Plt Count Lymph % (Auto) [place] % (Auto) Lymph # [place] # Baso # Seg Neutrophils % Seg Neuts % (Manual) Lymphocytes % (Manual) Monocytes % (Manual) Nucleated RBC % Seg Neutrophils # Seg Neutrophils # Man Lymphocytes # (Manual) Monocytes # (Manual) Basophils # (Manual) PT INR D-Dimer ABG pH ABG pO2 ABG HCO3 ABG O2 Saturation ABG Base Excess ABG Hemoglobin Oxyhemoglobin Sodium Potassium Chloride Carbon Dioxide BUN Creatinine Glucose POC Glucose 112 H 132 H 147 H Lactic Acid Calcium Magnesium Iron TIBC Ferritin AST ALT Lactate Dehydrogenase Troponin T C-Reactive Protein Total Protein Albumin Prealbumin Cholesterol LDL Cholesterol Direct HDL Cholesterol Urine WBC (Auto) Vancomycin Trough Coronavirus (PCR) Crossmatch 08/07/19 08/07/19 08/07/19 05:16 05:23 05:23 WBC 30.3 H RBC 2.69 L Hgb 7.1 L Hct 22.2 L MCV 83 L MCH 27 L MCHC RDW 19.1 H Plt Count 650 H Lymph % (Auto) [place] % (Auto) Lymph # [place] # Baso # Seg Neutrophils % Seg Neuts % (Manual) 88.0 H Lymphocytes % (Manual) 5.0 L Monocytes % (Manual) Nucleated RBC % Seg Neutrophils # Seg Neutrophils # Man 26.7 H Lymphocytes # (Manual) Monocytes # (Manual) 2.1 H Basophils # (Manual) PT INR D-Dimer ABG pH ABG pO2 ABG HCO3 ABG O2 Saturation ABG Base Excess ABG Hemoglobin Oxyhemoglobin Sodium 135 L Potassium 3.4 L Chloride 95.4 L Carbon Dioxide 32 H BUN Creatinine 0.4 L Glucose 120 H POC Glucose 120 H Lactic Acid Calcium 7.7 L Magnesium Iron TIBC Ferritin AST ALT Lactate Dehydrogenase Troponin T C-Reactive Protein Total Protein Albumin Prealbumin Cholesterol LDL Cholesterol Direct HDL Cholesterol Urine WBC (Auto) Vancomycin Trough Coronavirus (PCR) Crossmatch 08/07/19 08/07/19 08/07/19 10:24 10:24 11:10 WBC RBC Hgb Hct MCV MCH MCHC RDW Plt Count Lymph % (Auto) [place] % (Auto) Lymph # [place] # Baso # Seg Neutrophils % Seg Neuts % (Manual) Lymphocytes % (Manual) Monocytes % (Manual) Nucleated RBC % Seg Neutrophils # Seg Neutrophils # Man Lymphocytes # (Manual) Monocytes # (Manual) Basophils # (Manual) PT INR D-Dimer 1808.06 H ABG pH ABG pO2 73.3 L ABG HCO3 33.9 H ABG O2 Saturation ABG Base Excess 9.0 H ABG Hemoglobin 6.3 L Oxyhemoglobin 94.3 L Sodium Potassium Chloride Carbon Dioxide BUN Creatinine Glucose POC Glucose Lactic Acid Calcium Magnesium Iron TIBC Ferritin AST ALT Lactate Dehydrogenase Troponin T C-Reactive Protein 11.10 H Total Protein Albumin Prealbumin Cholesterol LDL Cholesterol Direct HDL Cholesterol Urine WBC (Auto) Vancomycin Trough Coronavirus (PCR) Crossmatch 08/07/19 08/08/19 08/08/19 12:01 04:41 04:41 WBC 22.1 H RBC 2.82 L Hgb 7.7 L Hct 23.6 L MCV MCH 27 L MCHC RDW 19.1 H Plt Count 722 H Lymph % (Auto) [place] % (Auto) Lymph # [place] # Baso # Seg Neutrophils % Seg Neuts % (Manual) 90.0 H Lymphocytes % (Manual) 3.0 L Monocytes % (Manual) Nucleated RBC % Seg Neutrophils # Seg Neutrophils # Man 19.9 H Lymphocytes # (Manual) 0.7 L Monocytes # (Manual) 1.3 H Basophils # (Manual) PT INR D-Dimer ABG pH ABG pO2 ABG HCO3 ABG O2 Saturation ABG Base Excess ABG Hemoglobin Oxyhemoglobin Sodium 136 L Potassium Chloride 97.8 L Carbon Dioxide BUN Creatinine 0.3 L Glucose 105 H POC Glucose 130 H Lactic Acid Calcium 7.8 L Magnesium Iron TIBC Ferritin AST ALT Lactate Dehydrogenase Troponin T C-Reactive Protein Total Protein Albumin Prealbumin Cholesterol LDL Cholesterol Direct HDL Cholesterol Urine WBC (Auto) Vancomycin Trough Coronavirus (PCR) Crossmatch 08/08/19 08/08/19 08/09/19 11:46 18:35 00:12 WBC RBC Hgb Hct MCV MCH MCHC RDW Plt Count Lymph % (Auto) [place] % (Auto) Lymph # [place] # Baso # Seg Neutrophils % Seg Neuts % (Manual) Lymphocytes % (Manual) Monocytes % (Manual) Nucleated RBC % Seg Neutrophils # Seg Neutrophils # Man Lymphocytes # (Manual) Monocytes # (Manual) Basophils # (Manual) PT INR D-Dimer ABG pH ABG pO2 ABG HCO3 ABG O2 Saturation ABG Base Excess ABG Hemoglobin Oxyhemoglobin Sodium Potassium Chloride Carbon Dioxide BUN Creatinine Glucose POC Glucose 117 H 117 H 117 H Lactic Acid Calcium Magnesium Iron TIBC Ferritin AST ALT Lactate Dehydrogenase Troponin T C-Reactive Protein Total Protein Albumin Prealbumin Cholesterol LDL Cholesterol Direct HDL Cholesterol Urine WBC (Auto) Vancomycin Trough Coronavirus (PCR) Crossmatch 08/09/19 08/09/19 08/09/19 05:33 12:22 17:48 WBC RBC Hgb Hct MCV MCH MCHC RDW Plt Count Lymph % (Auto) [place] % (Auto) Lymph # [place] # Baso # Seg Neutrophils % Seg Neuts % (Manual) Lymphocytes % (Manual) Monocytes % (Manual) Nucleated RBC % Seg Neutrophils # Seg Neutrophils # Man Lymphocytes # (Manual) Monocytes # (Manual) Basophils # (Manual) PT INR D-Dimer ABG pH ABG pO2 ABG HCO3 ABG O2 Saturation ABG Base Excess ABG Hemoglobin Oxyhemoglobin Sodium Potassium Chloride Carbon Dioxide BUN Creatinine Glucose POC Glucose 119 H 133 H 123 H Lactic Acid Calcium Magnesium Iron TIBC Ferritin AST ALT Lactate Dehydrogenase Troponin T C-Reactive Protein Total Protein Albumin Prealbumin Cholesterol LDL Cholesterol Direct HDL Cholesterol Urine WBC (Auto) Vancomycin Trough Coronavirus (PCR) Crossmatch 08/09/19 08/09/19 08/10/19 17:59 18:15 00:02 WBC RBC Hgb 6.7 L Hct 20.4 L MCV MCH MCHC RDW Plt Count Lymph % (Auto) [place] % (Auto) Lymph # [place] # Baso # Seg Neutrophils % Seg Neuts % (Manual) Lymphocytes % (Manual) Monocytes % (Manual) Nucleated RBC % Seg Neutrophils # Seg Neutrophils # Man Lymphocytes # (Manual) Monocytes # (Manual) Basophils # (Manual) PT INR D-Dimer ABG pH ABG pO2 ABG HCO3 ABG O2 Saturation ABG Base Excess ABG Hemoglobin Oxyhemoglobin Sodium Potassium Chloride Carbon Dioxide BUN Creatinine Glucose POC Glucose 124 H Lactic Acid Calcium Magnesium Iron TIBC Ferritin AST ALT Lactate Dehydrogenase Troponin T C-Reactive Protein Total Protein Albumin Prealbumin Cholesterol LDL Cholesterol Direct HDL Cholesterol Urine WBC (Auto) Vancomycin Trough Coronavirus (PCR) Crossmatch See Detail 08/10/19 08/10/19 08/10/19 05:47 08:00 08:00 WBC 16.9 H RBC 2.94 L Hgb 8.2 L Hct 24.9 L MCV MCH MCHC RDW 17.0 H Plt Count 661 H Lymph % (Auto) [place] % (Auto) Lymph # [place] # Baso # Seg Neutrophils % Seg Neuts % (Manual) Lymphocytes % (Manual) Monocytes % (Manual) Nucleated RBC % Seg Neutrophils # Seg Neutrophils # Man Lymphocytes # (Manual) Monocytes # (Manual) Basophils # (Manual) PT INR D-Dimer ABG pH ABG pO2 ABG HCO3 ABG O2 Saturation ABG Base Excess ABG Hemoglobin Oxyhemoglobin Sodium Potassium Chloride Carbon Dioxide BUN Creatinine 0.3 L Glucose 116 H POC Glucose 148 H Lactic Acid Calcium 7.7 L Magnesium Iron TIBC Ferritin AST ALT Lactate Dehydrogenase Troponin T C-Reactive Protein Total Protein Albumin Prealbumin Cholesterol LDL Cholesterol Direct HDL Cholesterol Urine WBC (Auto) Vancomycin Trough Coronavirus (PCR) Crossmatch 08/10/19 08/10/19 08/10/19 12:38 18:06 23:56 WBC RBC Hgb Hct MCV MCH MCHC RDW Plt Count Lymph % (Auto) [place] % (Auto) Lymph # [place] # Baso # Seg Neutrophils % Seg Neuts % (Manual) Lymphocytes % (Manual) Monocytes % (Manual) Nucleated RBC % Seg Neutrophils # Seg Neutrophils # Man Lymphocytes # (Manual) Monocytes # (Manual) Basophils # (Manual) PT INR D-Dimer ABG pH ABG pO2 ABG HCO3 ABG O2 Saturation ABG Base Excess ABG Hemoglobin Oxyhemoglobin Sodium Potassium Chloride Carbon Dioxide BUN Creatinine Glucose POC Glucose 113 H 126 H 115 H Lactic Acid Calcium Magnesium Iron TIBC Ferritin AST ALT Lactate Dehydrogenase Troponin T C-Reactive Protein Total Protein Albumin Prealbumin Cholesterol LDL Cholesterol Direct HDL Cholesterol Urine WBC (Auto) Vancomycin Trough Coronavirus (PCR) Crossmatch 08/10/19 Unknown WBC RBC Hgb Hct MCV MCH MCHC RDW Plt Count Lymph % (Auto) [place] % (Auto) Lymph # [place] # Baso # Seg Neutrophils % Seg Neuts % (Manual) Lymphocytes % (Manual) Monocytes % (Manual) Nucleated RBC % Seg Neutrophils # Seg Neutrophils # Man Lymphocytes # (Manual) Monocytes # (Manual) Basophils # (Manual) PT INR D-Dimer ABG pH ABG pO2 ABG HCO3 ABG O2 Saturation ABG Base Excess ABG Hemoglobin Oxyhemoglobin Sodium Potassium Chloride Carbon Dioxide BUN Creatinine Glucose POC Glucose Lactic Acid Calcium Magnesium Iron TIBC Ferritin AST ALT Lactate Dehydrogenase Troponin T C-Reactive Protein Total Protein Albumin Prealbumin Cholesterol LDL Cholesterol Direct HDL Cholesterol Urine WBC (Auto) Vancomycin Trough Coronavirus (PCR) Positive A Crossmatch Allied health notes reviewed: RT
--- NOTE | 2019-08-11 10:23 | Progress Note ---
Assessment and Plan Assessment and plan: --COVid positive pneumonia with severe sepsis Received Plaquenil and cefepime, monitor off antibiotics ID following --Septic shock: On Levophed Persistent hypotension, titrate to systolic blood pressure more than 100 -- Acute respiratory Failure with Hypoxia Due to bilateral PNA with COVID 19 infection. On ventilatory support, unable to wean Pulmonary critical following --COPD with exacerbation Likely due to COVID-19 pneumonia Continue scheduled nebs --Anemia, Microcytic persistent s/p total 3 unit of PRBC, today Hb today 9.1 --Pressure Ulcers: POA buttocks, right lateral foot area wound and supportive care --Hyponatremia, resolved --DM type 2: Accu-Chek SCC tube feeding, insulin as needed --h/o HTN Essential, now hypotensive On Levophed --Seizure D/o/CVA/immobility/BIpolar D/o/SCZ Seizure precautions, antiepileptic medications --Severe PCM, TF supportive care, dietary following patient is DNR- Called and verified information Very poor prognosis, Recommend hospice 07/04: COVID +ve, start on plaquinil, called no answer 07/05: transfuse one unit PRBC, Hb dropped to ~6, called and updated 07/06; H&H stable, serum chemistry improved. On mechanical ventilation with high inflammatory markers. Continue Plaquenil and empiric antibiotics. ID following, prognosis remains guarded and extremely poor. 07/07: On mechanical ventilation with high inflammatory markers. Continue Plaquenil and empiric antibiotics. ID following, prognosis remains guarded and extremely poor. 07/08: Called today and verified the CODE STATUS. Patient remains DNR. He is still intubated, with poor prognosis. Continue to follow inflammatory markers. 07/09 wean off from vent as tolerated, completed empiric antibiotic and Plaquenil 07/10 wean off from vent as tolerated. poor prognosis 07/11 hb 6.7 today, transfuse one PRBC. wean off from vent as tolerated. poor prognosis 07/12 remains critically on vent. Hb 6.9 07/13 Hb dropped to 6.6, transfuse 1 unit of PRBC, remains on vent critically ill Hypotensive, fluid bolus, if no improvement start Levophed 07/14; remains anemic with hemoglobin of 6.8, received total 3 units of PRBC Additional 1 unit of PRBC today, stool for occult blood to rule out GI causes Started back on Levophed due to hypotension 07/15; patient remains critically ill, hypotensive on Levophed 07/16: Today remains intubated on vent, persistent hypotension on Levophed 07/17; clinically no change, pressor dependent[on Levophed] DNR status 07/18: Patient remains hypotensive requiring Levophed, intubated on vent Unable to wean, critically ill. DNR 07/20/2019 Patient remains hypotensive requiring Levophed, intubated on vent. Patient currently with AC mode ventilation, rate 20, tidal volume 500, FiO2 40% and PEEP 6. Patient is a poor prognosis and apparently was on hospice recently. 07/21/2019. Patient with PEG tube that was clogged yesterday. surgery evaluated the patient and noted Very long PEG tubing with thick material inside. The ent celsa tube was stripped and a large amount of formed tube feed was expressed. The tube was then flushed with sprite and flushed easily. Tube clamped. Patient currently with AC mode ventilation, rate 20, tidal volume 500, FiO2 40% and PEEP 6. Patient is a poor prognosis and apparently was on hospice recently. 07/22/2019. Patient currently with AC mode ventilation, rate 20, tidal volume 500, FiO2 30% and PEEP 6. Patient on sedation with fentanyl drip. Continue Levophed to maintain MAP greater than 65. Patient is a poor prognosis and apparently was on hospice recently. 07/23/2019. Patient currently with AC mode ventilation, rate 20, tidal volume 500, FiO2 30% and PEEP 6. Patient on sedation with fentanyl drip. Continue Levophed to maintain MAP greater than 65. Patient is a poor prognosis and apparently was on hospice recently. 07/24/2019 Patient with Covid-19 infection with pneumonia, acute respiratory failure, intubated on ventilator. No more fever. Continue current management. 07/25/2019 Patient with Covid-19 infection with pneumonia, acute respiratory failure, intubated on ventilator. fever is now resolved. Sedated with propofol 07/26/2019 Patient with covid-19 infection. Still intubated, on vent. 07/27/2019 Patient with Covid-19. he is still critically ill. patient has DNR order. 07/28/2019 Patient with Covid-19 infection. Will repeat labs today. Surgeon consulted for tracheostomy. 07/29/2019 Patient with Covid-19. hypokalemia yesterday, replaced. Will recheck labs in am. 07/30/2019 patient with Covid-19 infection with acute respiratory failure. He is intubated on ventilator. has hypokalemia. replace and recheck BMP in am. patient has UTI, started on Cefepime. 07/31/2019. patient with Covid-19 infection with acute respiratory failure. He is intubated on ventilator. Repeat chest x-ray reveals decreased infiltrates. urology consultation and wound care consult per ID. Follow-up urine and blood culture. Tracheostomy per surgery. 08/01/2019. patient with Covid-19 infection with acute respiratory failure. He is intubated on ventilator. Patient currently with PSV trials. Pressure support 18/PEEP 6. FiO2 30%. Tracheostomy to be placed per surgery wound COVID testing negative. 08/02/2019. Patient with COVID-19 infection and acute respiratory failure on mechanical ventilation. Continue with PSVT trials with pressure support increased to 20. Follow-up serial chest x-ray. Continue Fentanyl infusion and wean sedation as tolerated. Continue daily spontaneous breathing trials. 08/03/2019. Patient with COVID-19 infection and acute respiratory failure on mechanical ventilation. Continue with PSV trials with pressure support increased to 20. Follow-up serial chest x-ray. Continue Fentanyl infusion and wean sedation as tolerated. Continue daily spontaneous breathing trials. 08/04/2019. Patient with COVID-19 infection and acute respiratory failure on mechanical ventilation. Continue with PSV trials 14/6, FiO2 30%. Continue Fentanyl infusion and wean sedation as tolerated. Continue daily spontaneous breathing trials. Tracheostomy placement to be scheduled when COVID testing is negative per surgery. Monitor off antibiotics per ID recommendations 08/05/2019. Patient with COVID-19 infection and acute respiratory failure on mechanical ventilation. Patient currently on AC mode, rate 14, tidal volume 500, FiO2 30% and PEEP of 6. Continue PSV trials as tolerated. Tracheostomy placement to be scheduled when COVID testing is negative per surgery. Monitor off antibiotics per ID recommendations. 08/06/2019. Patient with COVID-19 infection and acute respiratory failure on mechanical ventilation. Patient currently on AC mode, rate 14, tidal volume 500, FiO2 30% and PEEP of 6. Continue PSV trials as tolerated. Tracheostomy placement to be scheduled when COVID testing is negative per surgery. ID restarted antibiotics with cefepime 2 g IV every 8 hours to cover for presumed Pseudomonas pneumonia. Follow-up chest x-ray and blood cultures. Repeat COVID testing 07/28 and positive. Repeat test tomorrow. 08/07/19 Patient with Covid-19, acute respiratory failure. He is still intubated on mechanical ventilator. For tracheostomy when Covid-19 test negative. Still having fever. Leukocytosis worse today, WBC 30.3. For CT Chest, Abdomen. 08/08/19 patient with Covid-19, acute respiratory failure. He is still critically ill, intubated. He is for tracheostomy after Covid-19 test negative. Fever improving. Temp 99.[address] Chest and Abdomen done yesterday pending. 08/09/2019 patient with Covid-19 infection, acute resp failure. Still intubated on ventilator. Fever of 100.3 this morning. I discussed with his Nurse 08/10/2019 Patient with Covid-19 infection. acute respirator failure. patient still in critical condition, intubated. 08/11/2019 Patient with Covid-19 infection, acute resp failure. He is still intubated on vent. The high probability of a clinically significant, sudden or life threatening deterioration of the [respiratory, CVS, BILLET CHECKER] system(s) required my full and direct attention, intervention and personal management. The aggregate critical care time was [31] minutes. This time is in addition to time spent performing reported procedures but includes the following: [x] Data Review and interpretation [x] Patient assessment and monitoring of vital signs [x] Documentation [x] Medication orders and management History Interval history: Patient with Covid-19 infection Still intubated Fever Hospitalist Physical - Physical exam Narrative exam: GEN: Not in acute distress, intubated HEENT: Normocephalic, atraumatic, Neck: supple, No JVD Lungs: Bilateral crackles, heart;S1 and S2 reg, no murmurs, rubs or gallop Abd:soft, non tender, non distended, normal bowel sounds,PEG tube Ext: No edema, no clubbing, no cyanosis, Neuro: Intubated, on ventilator,sedated - Constitutional Vitals: Temp Pulse Resp BP Pulse Ox 98.7 F 95 H 20 138/67 100 08/11/19 03:24 08/11/19 07:40 08/11/19 07:40 08/11/19 07:40 08/11/19 07:40 General appearance: Present: other (Orally intubated on vent) HEART Score - HEART Score Troponin: Troponin T 0.013 ng/mL (0.00-0.029) 07/04/19 07:05 Results - Labs CBC & Chem 7: 08/10/19 08:00 08/10/19 08:00 Labs: Laboratory Last Values WBC 16.9 K/mm3 (4.5-11.0) H 08/10/19 08:00 RBC 2.94 M/mm3 (3.65-5.03) L 08/10/19 08:00 Hgb 8.2 gm/dl (11.8-15.2) L 08/10/19 08:00 Hct 24.9 % (35.5-45.6) L 08/10/19 08:00 MCV 85 fl (84-94) 08/10/19 08:00 MCH 28 pg (28-32) 08/10/19 08:00 MCHC 33 % (32-34) 08/10/19 08:00 RDW 17.0 % (13.2-15.2) H 08/10/19 08:00 Plt Count 661 K/mm3 (140-440) H 08/10/19 08:00 Lymph % (Auto) 4.9 % (13.4-35.0) L 07/19/19 08:45 Fleming % (Auto) 12.2 % (0.0-7.3) H 07/22/19 05:38 Eos % (Auto) 1.0 % (0.0-4.3) 07/19/19 08:45 Baso % (Auto) 0.5 % (0.0-1.8) 07/19/19 08:45 Lymph # 0.8 K/mm3 (1.2-5.4) L 07/19/19 08:45 Fleming # 1.5 K/mm3 (0.0-0.8) H 07/22/19 05:38 Eos # 0.2 K/mm3 (0.0-0.4) 07/19/19 08:45 Baso # 0.1 K/mm3 (0.0-0.1) 07/19/19 08:45 Add Manual Diff Complete 08/08/19 04:41 Total Counted 100 08/08/19 04:41 Seg Neutrophils % 72.8 % (40.0-70.0) H 07/22/19 05:38 Seg Neuts % (Manual) 90.0 % (40.0-70.0) H 08/08/19 04:41 Band Neutrophils % 0 % 08/08/19 04:41 Lymphocytes % (Manual) 3.0 % (13.4-35.0) L 08/08/19 04:41 Reactive Lymphs % (Man) 0 % 08/08/19 04:41 Monocytes % (Manual) 6.0 % (0.0-7.3) 08/08/19 04:41 Eosinophils % (Manual) 1.0 % (0.0-4.3) 08/08/19 04:41 Basophils % (Manual) 0 % (0.0-1.8) 08/08/19 04:41 Metamyelocytes % 0 % 08/08/19 04:41 Myelocytes % 0 % 08/08/19 04:41 Promyelocytes % 0 % 08/08/19 04:41 Blast Cells % 0 % 08/08/19 04:41 Nucleated RBC % Not Reportable 08/08/19 04:41 Seg Neutrophils # 9.2 K/mm3 (1.8-7.7) H 07/22/19 05:38 Seg Neutrophils # Man 19.9 K/mm3 (1.8-7.7) H 08/08/19 04:41 Band Neutrophils # 0.0 K/mm3 08/08/19 04:41 Lymphocytes # (Manual) 0.7 K/mm3 (1.2-5.4) L 08/08/19 04:41 Abs React Lymphs (Man) 0.0 K/mm3 08/08/19 04:41 Monocytes # (Manual) 1.3 K/mm3 (0.0-0.8) H 08/08/19 04:41 Eosinophils # (Manual) 0.2 K/mm3 (0.0-0.4) 08/08/19 04:41 Basophils # (Manual) 0.0 K/mm3 (0.0-0.1) 08/08/19 04:41 Metamyelocytes # 0.0 K/mm3 08/08/19 04:41 Myelocytes # 0.0 K/mm3 08/08/19 04:41 Promyelocytes # 0.0 K/mm3 08/08/19 04:41 Blast Cells # 0.0 K/mm3 08/08/19 04:41 WBC Morphology Not Reportable 08/08/19 04:41 Hypersegmented Neuts Not Reportable 08/08/19 04:41 Hyposegmented Neuts Not Reportable 08/08/19 04:41 Hypogranular Neuts Not Reportable 08/08/19 04:41 Smudge Cells Not Reportable 08/08/19 04:41 Toxic Granulation Not Reportable 08/08/19 04:41 Toxic Vacuolation Not Reportable 08/08/19 04:41 Dohle Bodies Not Reportable 08/08/19 04:41 Pelger-Huet Anomaly Not Reportable 08/08/19 04:41 Mendy Rods Not Reportable 08/08/19 04:41 Platelet Estimate Consistent w auto 08/08/19 04:41 Clumped Platelets Not Reportable 08/08/19 04:41 Plt Clumps, EDTA Not Reportable 08/08/19 04:41 Large Platelets Not Reportable 08/08/19 04:41 Giant Platelets Not Reportable 08/08/19 04:41 Platelet Satelliting Not Reportable 08/08/19 04:41 Plt Morphology Comment Not Reportable 08/08/19 04:41 RBC Morphology Not Reportable 08/08/19 04:41 Dimorphic RBCs Not Reportable 08/08/19 04:41 Polychromasia Not Reportable 08/08/19 04:41 Hypochromasia Few 08/08/19 04:41 Poikilocytosis Not Reportable 08/08/19 04:41 Anisocytosis Rare 08/08/19 04:41 Microcytosis Rare 08/08/19 04:41 Macrocytosis Not Reportable 08/08/19 04:41 Spherocytes Not Reportable 08/08/19 04:41 Pappenheimer Bodies Not Reportable 08/08/19 04:41 Sickle Cells Not Reportable 08/08/19 04:41 Target Cells Not Reportable 08/08/19 04:41 Tear Drop Cells Not Reportable 08/08/19 04:41 Ovalocytes Rare 08/08/19 04:41 Stomatocytes Few 08/01/19 04:57 Helmet Cells Not Reportable 08/08/19 04:41 [place] Bodies Not Reportable 08/08/19 04:41 [place] Rings Not Reportable 08/08/19 04:41 Joanne Cells Not Reportable 08/08/19 04:41 Bite Cells Not Reportable 08/08/19 04:41 Crenated Cell Not Reportable 08/08/19 04:41 Elliptocytes Not Reportable 08/08/19 04:41 Acanthocytes (Spur) Not Reportable 08/08/19 04:41 Rouleaux Not Reportable 08/08/19 04:41 Hemoglobin C Crystals Not Reportable 08/08/19 04:41 Schistocytes Rare 08/08/19 04:41 Malaria parasites Not Reportable 08/08/19 04:41 Jeevan Bodies Not Reportable 08/08/19 04:41 Hem Pathologist Commnt No 08/08/19 04:41 PT 16.0 Sec. (12.2-14.9) H 07/03/19 22:20 INR 1.26 (0.87-1.13) H 07/03/19 22:20 D-Dimer 1808.06 ng/mlDDU (0-234) H 08/07/19 10:24 ABG pH 7.445 pH Units (7.350-7.450) 08/07/19 11:10 ABG pCO2 50.5 mm Hg 08/07/19 11:10 ABG pO2 73.3 mm Hg (80.0-90.0) L 08/07/19 11:10 ABG HCO3 33.9 mmol/L (20.0-26.0) H 08/07/19 11:10 ABG O2 Saturation 96.5 % (95.0-99.0) 08/07/19 11:10 ABG O2 Content 8.5 (0.0-44) 08/07/19 11:10 ABG Base Excess 9.0 mmol/L (-2.0-3.0) H 08/07/19 11:10 ABG Hemoglobin 6.3 gm/dl (14.0-18.0) L 08/07/19 11:10 ABG Carboxyhemoglobin 1.9 % (0.0-5.0) 08/07/19 11:10 ABG Methemoglobin 0.4 % (0.0-1.5) 08/07/19 11:10 Oxyhemoglobin 94.3 % (95.0-99.0) L 08/07/19 11:10 FiO2 30 % 08/07/19 11:10 Sodium 138 mmol/L (137-145) 08/10/19 08:00 Potassium 4.1 mmol/L (3.6-5.0) 08/10/19 08:00 Chloride 101.8 mmol/L (98-107) 08/10/19 08:00 Carbon Dioxide 29 mmol/L (22-30) 08/10/19 08:00 Anion Gap 11 mmol/L 08/10/19 08:00 BUN 11 mg/dL (9-20) 08/10/19 08:00 Creatinine 0.3 mg/dL (0.8-1.5) L 08/10/19 08:00 Estimated GFR > 60 ml/min 08/10/19 08:00 BUN/Creatinine Ratio 37 % 08/10/19 08:00 Glucose 116 mg/dL (75-100) H 08/10/19 08:00 POC Glucose 90 (70-105) 08/11/19 05:17 Osmolality 268 Mosm/kg 07/05/19 04:00 Lactic Acid 3.30 mmol/L (0.7-2.0) H* 07/04/19 07:05 Uric Acid 7.2 mg/dL (3.5-7.6) 07/05/19 04:00 Calcium 7.7 mg/dL (8.4-10.2) L 08/10/19 08:00 Phosphorus 3.60 mg/dL (2.5-4.5) 07/05/19 04:00 Magnesium 1.80 mg/dL (1.7-2.3) 07/11/19 05:14 Iron 9 ug/dL (49-181) L 07/04/19 07:05 TIBC 97 mcg/dL (250-450) L 07/04/19 07:05 Ferritin 360.4 ng/mL (13.0-400.0) 08/07/19 10:24 Total Bilirubin 0.20 mg/dL (0.1-1.2) 07/04/19 07:05 AST 73 units/L (5-40) H 07/04/19 07:05 ALT 91 units/L (7-56) H 07/04/19 07:05 Alkaline Phosphatase 114 units/L (35-129) 07/04/19 07:05 Ammonia 35.0 umol/L (25-60) 07/03/19 23:58 Lactate Dehydrogenase 144 units/L (91-180) 08/07/19 10:24 Troponin T 0.013 ng/mL (0.00-0.029) 07/04/19 07:05 C-Reactive Protein 11.10 mg/dL (0.00-1.30) H 08/07/19 10:24 Total Protein 5.5 g/dL (6.3-8.2) L 07/04/19 07:05 Albumin 1.6 g/dL (3.9-5) L 07/31/19 04:42 Albumin/Globulin Ratio 0.6 % 07/04/19 07:05 Prealbumin 0.037 g/L (0.200-0.400) L 07/31/19 04:42 Triglycerides 33 mg/dL (2-149) 07/03/19 19:57 Cholesterol 47 mg/dL (50-199) L 07/03/19 19:57 LDL Cholesterol Direct 25 mg/dL (50-130) L 07/03/19 19:57 HDL Cholesterol 20 mg/dL (40-59) L 07/03/19 19:57 Cholesterol/HDL Ratio 2.35 % 07/03/19 19:57 Procalcitonin 0.96 ng/mL (<0.15) 08/07/19 10:24 TSH 2.170 mlU/mL (0.270-4.200) 07/03/19 22:20 Total Cortisol 28.0 mcg/dL () 07/05/19 10:11 Urine Color Yellow (Yellow) 07/29/19 11:57 Urine Turbidity Clear (Clear) 07/29/19 11:57 Urine pH 7.0 (5.0-7.0) 07/29/19 11:57 Ur Specific [place] 1.012 (1.003-1.030) 07/29/19 11:57 Urine Protein <15 mg/dl mg/dL (Negative) 07/29/19 11:57 Urine Glucose (UA) Neg mg/dL (Negative) 07/29/19 11:57 Urine Ketones Neg mg/dL (Negative) 07/29/19 11:57 Urine Blood Sm (Negative) 07/29/19 11:57 Urine Nitrite Neg (Negative) 07/29/19 11:57 Urine Bilirubin Neg (Negative) 07/29/19 11:57 Urine Urobilinogen 4.0 mg/dL (<2.0) 07/29/19 11:57 Ur Leukocyte Esterase Mod (Negative) 07/29/19 11:57 Urine WBC (Auto) 63.0 /HPF (0.0-6.0) H 07/29/19 11:57 Urine RBC (Auto) 14.0 /HPF (0.0-6.0) 07/29/19 11:57 U Epithel Cells (Auto) < 1.0 /HPF (0-13.0) 07/29/19 11:57 Urine Bacteria (Auto) 1+ /HPF (Negative) 07/29/19 11:57 Urine WBC Clumps Few /HPF 07/03/19 21:13 Urine Mucus Few /HPF 07/03/19 21:13 Urine Osmolality 293 Mosm/kg 07/05/19 08:15 Vancomycin Trough 23.2 ug/mL (5.0-20.0) H 07/05/19 17:54 Urine Opiates Screen Presumptive negative 07/03/19 21:13 Urine Methadone Screen Presumptive negative 07/03/19 21:13 Ur Barbiturates Screen Presumptive negative 07/03/19 21:13 Ur Phencyclidine Scrn Presumptive negative 07/03/19 21:13 Ur Amphetamines Screen Presumptive negative 07/03/19 21:13 U Benzodiazepines Scrn Presumptive negative 07/03/19 21:13 Urine Cocaine Screen Presumptive negative 07/03/19 21:13 U Marijuana (THC) Screen Presumptive negative 07/03/19 21:13 Drugs of Abuse Note Disclamer 07/03/19 21:13 Plasma/Serum Alcohol < 0.01 % (0-0.07) 07/03/19 23:58 Coronavirus (PCR) Positive (Negative) A 08/10/19 Unknown Hepatitis A IgM Ab Non-reactive (NonReactive) 08/07/19 10:24 Hep Bs Antigen Non-reactive (Negative) 08/07/19 10:24 Hep B Core IgM Ab Non-reactive (NonReactive) 08/07/19 10:24 Hepatitis C Antibody Non-reactive (NonReactive) 08/07/19 10:24 Blood Type B POSITIVE 08/09/19 17:59 Antibody Screen Negative 08/09/19 17:59 Crossmatch See Detail 08/09/19 17:59 Microbiology: Microbiology 08/06/19 10:18 Peripheral/Venous Blood Culture - Preliminary NO GROWTH AFTER 4 DAYS 08/06/19 11:07 Peripheral/Venous Blood Culture - Preliminary NO GROWTH AFTER 4 DAYS 08/09/19 14:30 Wound - Deep Wound Culture - Preliminary Wright/IV: Voiding Method Indwelling Catheter IV Catheter Type [Left INT / Saline Lock Antecubital] IV Catheter Type [Left Forearm Peripheral IV ] IV Catheter Type [Left Upper Mid-line arm] IV Catheter Type [Right INT / Saline Lock Forearm] IV Catheter Type [Right Hand] INT / Saline Lock IV Catheter Type [Right CVL Femoral] IV Catheter Type [Left INT / Saline Lock External Jugular] Active Medications - Current Medications Current Medications: Generic Name Dose Route Start Last Admin Trade Name Freq PRN Reason Stop Dose Admin Acetaminophen 650 mg 07/04/19 04:24 08/05/19 17:40 Tylenol MD 650 mg Q6H PRN Administration Pain MILD(1-3)/Fever >100.5/MURO Acetaminophen 650 mg 07/10/19 04:00 08/06/19 23:43 Tylenol PO 650 mg Q6HR PRN Administration Pain, Mild (1-3) FEVER Lipase/Protease/Amylase 1 each 07/04/19 10:04 08/11/19 06:03 Pancrewhitley [place] 10,500 Unit FEEDTUBE 1 each PRN PRN Administration For Clogged Feeding Tube Aspirin 81 mg 07/05/19 10:00 08/11/19 09:53 Baby Aspirin PO 81 mg QDAY TAMMIE Administration Dextrose 50 ml 07/04/19 06:54 D50w (25gm) Syringe IV Q30MIN PRN Hypoglycemia Protocol Docusate Sodium 100 mg 07/10/19 10:00 08/11/19 09:54 Colace PO Not Given BID TAMMIE Enoxaparin Sodium 40 mg 07/24/19 10:00 08/11/19 09:54 Enoxaparin SUB-Q 40 mg QDAY@1000 TAMMIE Administration Famotidine 20 mg 07/23/19 22:00 08/11/19 09:53 Pepcid PO 20 mg BID TAMMIE Administration Fentanyl 50 mcg 07/21/19 15:18 08/09/19 17:44 Sublimaze IV 50 mcg Q10MIN PRN Administration ANALGESIA Fentanyl 25 mcg 08/03/19 11:00 08/09/19 11:43 Duragesic TD 25 mcg Q3D TAMMIE Administration Folic Acid 1 mg 07/05/19 10:00 08/11/19 09:53 Folvite PO 1 mg QDAY TAMMIE Administration Hydrophilic Ointment 1 applic 07/03/19 19:56 07/05/19 17:42 Vaseline Lip Therapy TP 1 applic Q2HR PRN Administration Dry Lips Norepinephrine 4 mg in 250 mls @ 7.5 mls/hr 07/03/19 23:00 07/20/19 01:00 Levophed Drip 4 Mg/Ns 250 Ml IV Infused TITR TAMMIE Titration Protocol 2 MCG/MIN Piperacillin Sod/Tazobactam Sod 4.5 gm in 100 mls @ 200 mls/hr 08/06/19 12:00 08/11/19 05:31 Zosyn/Ns 4.5gm/100ml IV 200 mls/hr Q6HR TAMMIE Administration Protocol Sodium Chloride 500 mls @ 0 mls/hr 08/09/19 17:07 Nacl 0.9% 500 Ml IV ONCE TAMMIE As Directed Sodium Chloride 500 mls @ 0 mls/hr 08/09/19 18:56 Nacl 0.9% 500 Ml IV ONCE TAMMIE As Directed Insulin Human Lispro 0 unit 07/07/19 12:00 08/11/19 05:35 Humalog SUB-Q Not Given Q6HR [facility] Protocol Levetiracetam 750 mg 07/06/19 11:00 08/11/19 09:53 Keppra FEEDTUBE 750 mg Q12HR TAMMIE Administration Metoprolol Tartrate 5 mg 07/12/19 15:08 07/29/19 07:30 Metoprolol IV 5 mg Q6HR PRN Administration Tachyarrhythmias Multi-Ingred Cream/Lotion/Oil/Oint 1 applic 07/03/19 19:56 07/05/19 13:19 Artificial Tears Ophth Oint OU 1 applic Q4HR PRN Administration Dry Eye(s) Naloxone HCl 0.1 mg 07/04/19 04:24 Naloxone IV Q2MIN PRN Res Rate </= 8 or 02 SAT < 92% Oxycodone/Acetaminophen 1 tab 07/19/19 14:17 Percocet 5/325 PO Q4H PRN Pain, Moderate (4-6) Scopolamine 1 each 07/10/19 11:00 08/09/19 11:43 Transderm-Scop TD 1 each Q3D TAMMIE Administration Simple Syrup 15 ml 07/04/19 10:04 07/10/19 21:56 Simple Syrup FEEDTUBE 15 ml PRN PRN Administration Hypoglycemia Simple Syrup 30 ml 07/04/19 10:04 Simple Syrup FEEDTUBE PRN PRN Hypoglycemia Sodium Bicarbonate 325 mg 07/04/19 10:04 07/20/19 10:20 Sodium Bicarbonate FEEDTUBE 325 mg PRN PRN Administration For Clogged Feeding Tube Sodium Chloride 10 ml 07/04/19 10:00 08/11/19 09:55 Sodium Chloride Flush Syringe 10 Ml IV 10 ml BID TAMMIE Administration Sodium Chloride 10 ml 07/04/19 04:24 Sodium Chloride Flush Syringe 10 Ml IV PRN PRN LINE FLUSH Sodium Hypochlorite 1 applic 07/10/19 14:00 08/11/19 09:54 Dakin's Half Strength TP 1 appful BID TAMMIE Administration Nutrition/Malnutrition Assess - Dietary Evaluation Nutrition/Malnutrition Findings: Nutrition Notes Start: 07/04/19 09:17 Freq: Status: Active Protocol: Document 08/10/19 08:21 LP (Rec: 08/10/19 08:25 LP [id number]) Nutrition Notes Initial or Follow up Reassessment Current Diagnosis Acute Kidney Injury,COPD, Decubitus(Pressure Ulcer), Diabetes,Hypertension Other Pertinent Diagnosis COVID-19 (+), pneu, seizures, schizophrenia, Buttock and R foot PU, Current Diet Osmolite 1.5 at 55ml/hr Labs/Tests Reviewed Pertinent Medications Reviewed Height 5 ft 11 in Weight 92 kg [place] Body Weight (kg) 78.18 BMI 28.3 Weight Status Overweight Subjective/Other Information Pt tolerating TF at goal rate. Pt waiting to get trach and PEG placed. Percent of energy/protein needs met: 97%/75% Burn Absent Trauma Absent Current % PO Negligible Minimum of two criteria No physical signs of malnutrition #2 Nutrition Diagnosis Increased nutrient needs ( specify in comment below) Diagnosis Progress(for reassessment Continues documentation) #1 Nutrition Diagnosis Inadequate oral intake Diagnosis Progress(for reassessment Continues documentation) Is patient on ventilator? Yes Is Patient Ambulatory and/or Out of Bed No REE-([facility]-confined to bed) 2047.172 Calculation Used for Recommendations [facility] Additional Notes Protein: 110-184 (1.2-2g/kg) Fluid: 1 ml/kcal or per MD Nutrition Intervention Change Diet Order: Continue TF Nutrition Support: Osmolite 1.5 at 55ml/hr Flush 50ml q4h for hyponatremia Flush 150 once resolved Kcal 1,980 Protein (gm) 83 Fluid (mL) 1,006 Goal #1 TF tolerance Goal #2 TF to meet at least 75% of energy and protein needs Anticipated Discharge Needs: unable to determine at this time Follow-Up By: 08/15/19 Additional Comments Follow for TF
--- NOTE | 2019-08-11 11:17 | XRay Report ---
ABDOMEN ONE VIEW INDICATION / CLINICAL INFORMATION: Confirmation of OG tube. COMPARISON: None available. FINDINGS: An enteric tube is present with the tip superimposed over the expected position of the gastric body o r antrum Signer Name: Saleem Jalloh MD FACR Signed: 08/11/2019 11:12 AM Workstation Name: [id number]
[2019-08-11] MEDS: oxyCODONE /ACETAMINOPHEN 5-325MG TAB PO PRN (13:06)
--- NOTE | 2019-08-11 14:08 | Event Note ---
Date: 08/11/19 I called and gave update including Covid-19 test being still positive.
[2019-08-11] MEDS: METOPROLOL TARTRATE 5 MG/5 ML INJ IV PRN (14:47)
[2019-08-12] MEDS: INSULIN LISPRO 100 UNIT/ML SUB-Q SCH ×4 (00:16→17:28)
[2019-08-12] MEDS: PIPERACIL/TAZOBACTA 4.5/NS 100 4.5 GM/100 ML VIAL IV SCH ×4 (00:16→18:00)
[2019-08-12 03:56] LABS: Hematocrit 22.1 % (35.5-45.6); Hemoglobin 7.4 gm/dl (11.8-15.2); Mean Corpuscular HGB Conc 34 % (32-34); Mean Corpuscular Volume 86 fl (84-94); Platelet Count 786 K/mm3 (140-440); Red Blood Count 2.58 M/mm3 (3.65-5.03); Red Cell Distribution Width 17.4 % (13.2-15.2)
[2019-08-12 04:07] LABS: BUN/Creatinine Ratio 23; Blood Urea Nitrogen 7 mg/dL (9-20); Calcium 7.8 mg/dL (8.4-10.2); Hemolysis Index 1
--- NOTE | 2019-08-12 08:09 | Progress Note ---
Assessment and Plan Assessment and plan: --COVid positive pneumonia with severe sepsis Received Plaquenil and cefepime, monitor off antibiotics ID following --Septic shock: On Levophed Persistent hypotension, titrate to systolic blood pressure more than 100 -- Acute respiratory Failure with Hypoxia Due to bilateral PNA with COVID 19 infection. On ventilatory support, unable to wean Pulmonary critical following --COPD with exacerbation Likely due to COVID-19 pneumonia Continue scheduled nebs --Anemia, Microcytic persistent s/p total 3 unit of PRBC, today Hb today 9.1 --Pressure Ulcers: POA buttocks, right lateral foot area wound and supportive care --Hyponatremia, resolved --DM type 2: Accu-Chek SCC tube feeding, insulin as needed --h/o HTN Essential, now hypotensive On Levophed --Seizure D/o/CVA/immobility/BIpolar D/o/SCZ Seizure precautions, antiepileptic medications --Severe PCM, TF supportive care, dietary following patient is DNR- Called and verified information Very poor prognosis, Recommend hospice 07/04: COVID +ve, start on plaquinil, called no answer 07/05: transfuse one unit PRBC, Hb dropped to ~6, called and updated 07/06; H&H stable, serum chemistry improved. On mechanical ventilation with high inflammatory markers. Continue Plaquenil and empiric antibiotics. ID following, prognosis remains guarded and extremely poor. 07/07: On mechanical ventilation with high inflammatory markers. Continue Plaquenil and empiric antibiotics. ID following, prognosis remains guarded and extremely poor. 07/08: Called today and verified the CODE STATUS. Patient remains DNR. He is still intubated, with poor prognosis. Continue to follow inflammatory markers. 07/09 wean off from vent as tolerated, completed empiric antibiotic and Plaquenil 07/10 wean off from vent as tolerated. poor prognosis 07/11 hb 6.7 today, transfuse one PRBC. wean off from vent as tolerated. poor prognosis 07/12 remains critically on vent. Hb 6.9 07/13 Hb dropped to 6.6, transfuse 1 unit of PRBC, remains on vent critically ill Hypotensive, fluid bolus, if no improvement start Levophed 07/14; remains anemic with hemoglobin of 6.8, received total 3 units of PRBC Additional 1 unit of PRBC today, stool for occult blood to rule out GI causes Started back on Levophed due to hypotension 07/15; patient remains critically ill, hypotensive on Levophed 07/16: Today remains intubated on vent, persistent hypotension on Levophed 07/17; clinically no change, pressor dependent[on Levophed] DNR status 07/18: Patient remains hypotensive requiring Levophed, intubated on vent Unable to wean, critically ill. DNR 07/20/2019 Patient remains hypotensive requiring Levophed, intubated on vent. Patient currently with AC mode ventilation, rate 20, tidal volume 500, FiO2 40% and PEEP 6. Patient is a poor prognosis and apparently was on hospice recently. 07/21/2019. Patient with PEG tube that was clogged yesterday. surgery evaluated the patient and noted Very long PEG tubing with thick material inside. The ent celsa tube was stripped and a large amount of formed tube feed was expressed. The tube was then flushed with sprite and flushed easily. Tube clamped. Patient currently with AC mode ventilation, rate 20, tidal volume 500, FiO2 40% and PEEP 6. Patient is a poor prognosis and apparently was on hospice recently. 07/22/2019. Patient currently with AC mode ventilation, rate 20, tidal volume 500, FiO2 30% and PEEP 6. Patient on sedation with fentanyl drip. Continue Levophed to maintain MAP greater than 65. Patient is a poor prognosis and apparently was on hospice recently. 07/23/2019. Patient currently with AC mode ventilation, rate 20, tidal volume 500, FiO2 30% and PEEP 6. Patient on sedation with fentanyl drip. Continue Levophed to maintain MAP greater than 65. Patient is a poor prognosis and apparently was on hospice recently. 07/24/2019 Patient with Covid-19 infection with pneumonia, acute respiratory failure, intubated on ventilator. No more fever. Continue current management. 07/25/2019 Patient with Covid-19 infection with pneumonia, acute respiratory failure, intubated on ventilator. fever is now resolved. Sedated with propofol 07/26/2019 Patient with covid-19 infection. Still intubated, on vent. 07/27/2019 Patient with Covid-19. he is still critically ill. patient has DNR order. 07/28/2019 Patient with Covid-19 infection. Will repeat labs today. Surgeon consulted for tracheostomy. 07/29/2019 Patient with Covid-19. hypokalemia yesterday, replaced. Will recheck labs in am. 07/30/2019 patient with Covid-19 infection with acute respiratory failure. He is intubated on ventilator. has hypokalemia. replace and recheck BMP in am. patient has UTI, started on Cefepime. 07/31/2019. patient with Covid-19 infection with acute respiratory failure. He is intubated on ventilator. Repeat chest x-ray reveals decreased infiltrates. urology consultation and wound care consult per ID. Follow-up urine and blood culture. Tracheostomy per surgery. 08/01/2019. patient with Covid-19 infection with acute respiratory failure. He is intubated on ventilator. Patient currently with PSV trials. Pressure support 18/PEEP 6. FiO2 30%. Tracheostomy to be placed per surgery wound COVID testing negative. 08/02/2019. Patient with COVID-19 infection and acute respiratory failure on mechanical ventilation. Continue with PSVT trials with pressure support increased to 20. Follow-up serial chest x-ray. Continue Fentanyl infusion and wean sedation as tolerated. Continue daily spontaneous breathing trials. 08/03/2019. Patient with COVID-19 infection and acute respiratory failure on mechanical ventilation. Continue with PSV trials with pressure support increased to 20. Follow-up serial chest x-ray. Continue Fentanyl infusion and wean sedation as tolerated. Continue daily spontaneous breathing trials. 08/04/2019. Patient with COVID-19 infection and acute respiratory failure on mechanical ventilation. Continue with PSV trials 14/6, FiO2 30%. Continue Fentanyl infusion and wean sedation as tolerated. Continue daily spontaneous breathing trials. Tracheostomy placement to be scheduled when COVID testing is negative per surgery. Monitor off antibiotics per ID recommendations 08/05/2019. Patient with COVID-19 infection and acute respiratory failure on mechanical ventilation. Patient currently on AC mode, rate 14, tidal volume 500, FiO2 30% and PEEP of 6. Continue PSV trials as tolerated. Tracheostomy placement to be scheduled when COVID testing is negative per surgery. Monitor off antibiotics per ID recommendations. 08/06/2019. Patient with COVID-19 infection and acute respiratory failure on mechanical ventilation. Patient currently on AC mode, rate 14, tidal volume 500, FiO2 30% and PEEP of 6. Continue PSV trials as tolerated. Tracheostomy placement to be scheduled when COVID testing is negative per surgery. ID restarted antibiotics with cefepime 2 g IV every 8 hours to cover for presumed Pseudomonas pneumonia. Follow-up chest x-ray and blood cultures. Repeat COVID testing 07/28 and positive. Repeat test tomorrow. 08/07/19 Patient with Covid-19, acute respiratory failure. He is still intubated on mechanical ventilator. For tracheostomy when Covid-19 test negative. Still having fever. Leukocytosis worse today, WBC 30.3. For CT Chest, Abdomen. 08/08/19 patient with Covid-19, acute respiratory failure. He is still critically ill, intubated. He is for tracheostomy after Covid-19 test negative. Fever improving. Temp 99.[address] Chest and Abdomen done yesterday pending. 08/09/2019 patient with Covid-19 infection, acute resp failure. Still intubated on ventilator. Fever of 100.3 this morning. I discussed with his Nurse 08/10/2019 Patient with Covid-19 infection. acute respirator failure. patient still in critical condition, intubated. 08/11/2019 Patient with Covid-19 infection, acute resp failure. He is still intubated on vent. 08/12/2019 Patient with Covid-19 infection, acute resp failure. He is still intubated on vent. Discussed with yesterday and gave update. Covid-19 test done 08/09 still positive. The high probability of a clinically significant, sudden or life threatening deterioration of the [respiratory, CVS, COAT BASTER] system(s) required my full and direct attention, intervention and personal management. The aggregate critical care time was [33] minutes. This time is in addition to time spent performing reported procedures but includes the following: [x] Data Review and interpretation [x] Patient assessment and monitoring of vital signs [x] Documentation [x] Medication orders and management History Interval history: Patient with Covid-19 infection Still intubated No Fever x few days Hospitalist Physical - Physical exam Narrative exam: GEN: Not in acute distress, intubated HEENT: Normocephalic, atraumatic, Neck: supple, No JVD Lungs: Bilateral crackles, heart;S1 and S2 reg, no murmurs, rubs or gallop Abd:soft, non tender, non distended, normal bowel sounds,PEG tube Ext: No edema, no clubbing, no cyanosis, Neuro: Intubated, on ventilator,sedated - Constitutional Vitals: Temp Pulse Resp BP Pulse Ox 98.9 F 88 22 138/68 100 08/12/19 03:31 08/12/19 05:00 08/12/19 05:00 08/12/19 05:00 08/12/19 05:00 General appearance: Present: other (Orally intubated on vent) HEART Score - HEART Score Troponin: Troponin T 0.013 ng/mL (0.00-0.029) 07/04/19 07:05 Results - Labs CBC & Chem 7: 08/12/19 03:30 08/12/19 03:30 Labs: Laboratory Last Values WBC 14.4 K/mm3 (4.5-11.0) H 08/12/19 03:30 RBC 2.58 M/mm3 (3.65-5.03) L 08/12/19 03:30 Hgb 7.4 gm/dl (11.8-15.2) L 08/12/19 03:30 Hct 22.1 % (35.5-45.6) L 08/12/19 03:30 MCV 86 fl (84-94) 08/12/19 03:30 MCH 29 pg (28-32) 08/12/19 03:30 MCHC 34 % (32-34) 08/12/19 03:30 RDW 17.4 % (13.2-15.2) H 08/12/19 03:30 Plt Count 786 K/mm3 (140-440) H 08/12/19 03:30 Lymph % (Auto) 4.9 % (13.4-35.0) L 07/19/19 08:45 [place] % (Auto) 12.2 % (0.0-7.3) H 07/22/19 05:38 Eos % (Auto) 1.0 % (0.0-4.3) 07/19/19 08:45 Baso % (Auto) 0.5 % (0.0-1.8) 07/19/19 08:45 Lymph # 0.8 K/mm3 (1.2-5.4) L 07/19/19 08:45 [place] # 1.5 K/mm3 (0.0-0.8) H 07/22/19 05:38 Eos # 0.2 K/mm3 (0.0-0.4) 07/19/19 08:45 Baso # 0.1 K/mm3 (0.0-0.1) 07/19/19 08:45 Add Manual Diff Complete 08/08/19 04:41 Total Counted 100 08/08/19 04:41 Seg Neutrophils % 72.8 % (40.0-70.0) H 07/22/19 05:38 Seg Neuts % (Manual) 90.0 % (40.0-70.0) H 08/08/19 04:41 Band Neutrophils % 0 % 08/08/19 04:41 Lymphocytes % (Manual) 3.0 % (13.4-35.0) L 08/08/19 04:41 Reactive Lymphs % (Man) 0 % 08/08/19 04:41 Monocytes % (Manual) 6.0 % (0.0-7.3) 08/08/19 04:41 Eosinophils % (Manual) 1.0 % (0.0-4.3) 08/08/19 04:41 Basophils % (Manual) 0 % (0.0-1.8) 08/08/19 04:41 Metamyelocytes % 0 % 08/08/19 04:41 Myelocytes % 0 % 08/08/19 04:41 Promyelocytes % 0 % 08/08/19 04:41 Blast Cells % 0 % 08/08/19 04:41 Nucleated RBC % Not Reportable 08/08/19 04:41 Seg Neutrophils # 9.2 K/mm3 (1.8-7.7) H 07/22/19 05:38 Seg Neutrophils # Man 19.9 K/mm3 (1.8-7.7) H 08/08/19 04:41 Band Neutrophils # 0.0 K/mm3 08/08/19 04:41 Lymphocytes # (Manual) 0.7 K/mm3 (1.2-5.4) L 08/08/19 04:41 Abs React Lymphs (Man) 0.0 K/mm3 08/08/19 04:41 Monocytes # (Manual) 1.3 K/mm3 (0.0-0.8) H 08/08/19 04:41 Eosinophils # (Manual) 0.2 K/mm3 (0.0-0.4) 08/08/19 04:41 Basophils # (Manual) 0.0 K/mm3 (0.0-0.1) 08/08/19 04:41 Metamyelocytes # 0.0 K/mm3 08/08/19 04:41 Myelocytes # 0.0 K/mm3 08/08/19 04:41 Promyelocytes # 0.0 K/mm3 08/08/19 04:41 Blast Cells # 0.0 K/mm3 08/08/19 04:41 WBC Morphology Not Reportable 08/08/19 04:41 Hypersegmented Neuts Not Reportable 08/08/19 04:41 Hyposegmented Neuts Not Reportable 08/08/19 04:41 Hypogranular Neuts Not Reportable 08/08/19 04:41 Smudge Cells Not Reportable 08/08/19 04:41 Toxic Granulation Not Reportable 08/08/19 04:41 Toxic Vacuolation Not Reportable 08/08/19 04:41 Dohle Bodies Not Reportable 08/08/19 04:41 Pelger-Huet Anomaly Not Reportable 08/08/19 04:41 Mendy Rods Not Reportable 08/08/19 04:41 Platelet Estimate Consistent w auto 08/08/19 04:41 Clumped Platelets Not Reportable 08/08/19 04:41 Plt Clumps, EDTA Not Reportable 08/08/19 04:41 Large Platelets Not Reportable 08/08/19 04:41 Giant Platelets Not Reportable 08/08/19 04:41 Platelet Satelliting Not Reportable 08/08/19 04:41 Plt Morphology Comment Not Reportable 08/08/19 04:41 RBC Morphology Not Reportable 08/08/19 04:41 Dimorphic RBCs Not Reportable 08/08/19 04:41 Polychromasia Not Reportable 08/08/19 04:41 Hypochromasia Few 08/08/19 04:41 Poikilocytosis Not Reportable 08/08/19 04:41 Anisocytosis Rare 08/08/19 04:41 Microcytosis Rare 08/08/19 04:41 Macrocytosis Not Reportable 08/08/19 04:41 Spherocytes Not Reportable 08/08/19 04:41 Pappenheimer Bodies Not Reportable 08/08/19 04:41 Sickle Cells Not Reportable 08/08/19 04:41 Target Cells Not Reportable 08/08/19 04:41 Tear Drop Cells Not Reportable 08/08/19 04:41 Ovalocytes Rare 08/08/19 04:41 Stomatocytes Few 08/01/19 04:57 Helmet Cells Not Reportable 08/08/19 04:41 [place] Bodies Not Reportable 08/08/19 04:41 [place] Rings Not Reportable 08/08/19 04:41 Joanne Cells Not Reportable 08/08/19 04:41 Bite Cells Not Reportable 08/08/19 04:41 Crenated Cell Not Reportable 08/08/19 04:41 Elliptocytes Not Reportable 08/08/19 04:41 Acanthocytes (Spur) Not Reportable 08/08/19 04:41 Rouleaux Not Reportable 08/08/19 04:41 Hemoglobin C Crystals Not Reportable 08/08/19 04:41 Schistocytes Rare 08/08/19 04:41 Malaria parasites Not Reportable 08/08/19 04:41 Jeevan Bodies Not Reportable 08/08/19 04:41 Hem Pathologist Commnt No 08/08/19 04:41 PT 16.0 Sec. (12.2-14.9) H 07/03/19 22:20 INR 1.26 (0.87-1.13) H 07/03/19 22:20 D-Dimer 1808.06 ng/mlDDU (0-234) H 08/07/19 10:24 ABG pH 7.445 pH Units (7.350-7.450) 08/07/19 11:10 ABG pCO2 50.5 mm Hg 08/07/19 11:10 ABG pO2 73.3 mm Hg (80.0-90.0) L 08/07/19 11:10 ABG HCO3 33.9 mmol/L (20.0-26.0) H 08/07/19 11:10 ABG O2 Saturation 96.5 % (95.0-99.0) 08/07/19 11:10 ABG O2 Content 8.5 (0.0-44) 08/07/19 11:10 ABG Base Excess 9.0 mmol/L (-2.0-3.0) H 08/07/19 11:10 ABG Hemoglobin 6.3 gm/dl (14.0-18.0) L 08/07/19 11:10 ABG Carboxyhemoglobin 1.9 % (0.0-5.0) 08/07/19 11:10 ABG Methemoglobin 0.4 % (0.0-1.5) 08/07/19 11:10 Oxyhemoglobin 94.3 % (95.0-99.0) L 08/07/19 11:10 FiO2 30 % 08/07/19 11:10 Sodium 138 mmol/L (137-145) 08/12/19 03:30 Potassium 3.7 mmol/L (3.6-5.0) 08/12/19 03:30 Chloride 101.6 mmol/L (98-107) 08/12/19 03:30 Carbon Dioxide 29 mmol/L (22-30) 08/12/19 03:30 Anion Gap 11 mmol/L 08/12/19 03:30 BUN 7 mg/dL (9-20) L 08/12/19 03:30 Creatinine 0.3 mg/dL (0.8-1.5) L 08/12/19 03:30 Estimated GFR > 60 ml/min 08/12/19 03:30 BUN/Creatinine Ratio 23 % 08/12/19 03:30 Glucose 117 mg/dL (75-100) H 08/12/19 03:30 POC Glucose 85 (70-105) 08/12/19 05:48 Osmolality 268 Mosm/kg 07/05/19 04:00 Lactic Acid 3.30 mmol/L (0.7-2.0) H* 07/04/19 07:05 Uric Acid 7.2 mg/dL (3.5-7.6) 07/05/19 04:00 Calcium 7.8 mg/dL (8.4-10.2) L 08/12/19 03:30 Phosphorus 3.60 mg/dL (2.5-4.5) 07/05/19 04:00 Magnesium 1.80 mg/dL (1.7-2.3) 07/11/19 05:14 Iron 9 ug/dL (49-181) L 07/04/19 07:05 TIBC 97 mcg/dL (250-450) L 07/04/19 07:05 Ferritin 360.4 ng/mL (13.0-400.0) 08/07/19 10:24 Total Bilirubin 0.20 mg/dL (0.1-1.2) 07/04/19 07:05 AST 73 units/L (5-40) H 07/04/19 07:05 ALT 91 units/L (7-56) H 07/04/19 07:05 Alkaline Phosphatase 114 units/L (35-129) 07/04/19 07:05 Ammonia 35.0 umol/L (25-60) 07/03/19 23:58 Lactate Dehydrogenase 144 units/L (91-180) 08/07/19 10:24 Troponin T 0.013 ng/mL (0.00-0.029) 07/04/19 07:05 C-Reactive Protein 11.10 mg/dL (0.00-1.30) H 08/07/19 10:24 Total Protein 5.5 g/dL (6.3-8.2) L 07/04/19 07:05 Albumin 1.6 g/dL (3.9-5) L 07/31/19 04:42 Albumin/Globulin Ratio 0.6 % 07/04/19 07:05 Prealbumin 0.037 g/L (0.200-0.400) L 07/31/19 04:42 Triglycerides 33 mg/dL (2-149) 07/03/19 19:57 Cholesterol 47 mg/dL (50-199) L 07/03/19 19:57 LDL Cholesterol Direct 25 mg/dL (50-130) L 07/03/19 19:57 HDL Cholesterol 20 mg/dL (40-59) L 07/03/19 19:57 Cholesterol/HDL Ratio 2.35 % 07/03/19 19:57 Procalcitonin 0.96 ng/mL (<0.15) 08/07/19 10:24 TSH 2.170 mlU/mL (0.270-4.200) 07/03/19 22:20 Total Cortisol 28.0 mcg/dL () 07/05/19 10:11 Urine Color Yellow (Yellow) 07/29/19 11:57 Urine Turbidity Clear (Clear) 07/29/19 11:57 Urine pH 7.0 (5.0-7.0) 07/29/19 11:57 Ur Specific [place] 1.012 (1.003-1.030) 07/29/19 11:57 Urine Protein <15 mg/dl mg/dL (Negative) 07/29/19 11:57 Urine Glucose (UA) Neg mg/dL (Negative) 07/29/19 11:57 Urine Ketones Neg mg/dL (Negative) 07/29/19 11:57 Urine Blood Sm (Negative) 07/29/19 11:57 Urine Nitrite Neg (Negative) 07/29/19 11:57 Urine Bilirubin Neg (Negative) 07/29/19 11:57 Urine Urobilinogen 4.0 mg/dL (<2.0) 07/29/19 11:57 Ur Leukocyte Esterase Mod (Negative) 07/29/19 11:57 Urine WBC (Auto) 63.0 /HPF (0.0-6.0) H 07/29/19 11:57 Urine RBC (Auto) 14.0 /HPF (0.0-6.0) 07/29/19 11:57 U Epithel Cells (Auto) < 1.0 /HPF (0-13.0) 07/29/19 11:57 Urine Bacteria (Auto) 1+ /HPF (Negative) 07/29/19 11:57 Urine WBC Clumps Few /HPF 07/03/19 21:13 Urine Mucus Few /HPF 07/03/19 21:13 Urine Osmolality 293 Mosm/kg 07/05/19 08:15 Vancomycin Trough 23.2 ug/mL (5.0-20.0) H 07/05/19 17:54 Urine Opiates Screen Presumptive negative 07/03/19 21:13 Urine Methadone Screen Presumptive negative 07/03/19 21:13 Ur Barbiturates Screen Presumptive negative 07/03/19 21:13 Ur Phencyclidine Scrn Presumptive negative 07/03/19 21:13 Ur Amphetamines Screen Presumptive negative 07/03/19 21:13 U Benzodiazepines Scrn Presumptive negative 07/03/19 21:13 Urine Cocaine Screen Presumptive negative 07/03/19 21:13 U Marijuana (THC) Screen Presumptive negative 07/03/19 21:13 Drugs of Abuse Note Disclamer 07/03/19 21:13 Plasma/Serum Alcohol < 0.01 % (0-0.07) 07/03/19 23:58 Coronavirus (PCR) Positive (Negative) A 08/10/19 Unknown Hepatitis A IgM Ab Non-reactive (NonReactive) 08/07/19 10:24 Hep Bs Antigen Non-reactive (Negative) 08/07/19 10:24 Hep B Core IgM Ab Non-reactive (NonReactive) 08/07/19 10:24 Hepatitis C Antibody Non-reactive (NonReactive) 08/07/19 10:24 Blood Type B POSITIVE 08/09/19 17:59 Antibody Screen Negative 08/09/19 17:59 Crossmatch See Detail 08/09/19 17:59 Microbiology: Microbiology 08/09/19 14:30 Wound - Deep Wound Culture - Preliminary Gram Negative Juan Manuel 08/06/19 10:18 Peripheral/Venous Blood Culture - Final NO GROWTH AFTER 5 DAYS 08/06/19 11:07 Peripheral/Venous Blood Culture - Final NO GROWTH AFTER 5 DAYS Wright/IV: Voiding Method Indwelling Catheter IV Catheter Type [Left Triple Lumen Cath Internal Jugular] IV Catheter Type [Left INT / Saline Lock Antecubital] IV Catheter Type [Left Forearm Peripheral IV ] IV Catheter Type [Left Upper Mid-line arm] IV Catheter Type [Right INT / Saline Lock Forearm] IV Catheter Type [Right Hand] INT / Saline Lock IV Catheter Type [Right CVL Femoral] IV Catheter Type [Left INT / Saline Lock External Jugular] Active Medications - Current Medications Current Medications: Generic Name Dose Route Start Last Admin Trade Name Freq PRN Reason Stop Dose Admin Acetaminophen 650 mg 07/04/19 04:24 08/05/19 17:40 Tylenol TN 650 mg Q6H PRN Administration Pain MILD(1-3)/Fever >100.5/MURO Acetaminophen 650 mg 07/10/19 04:00 08/06/19 23:43 Tylenol PO 650 mg Q6HR PRN Administration Pain, Mild (1-3) FEVER Lipase/Protease/Amylase 1 each 07/04/19 10:04 08/11/19 06:03 Pancrewhitley Gilbert 10,500 Unit FEEDTUBE 1 each PRN PRN Administration For Clogged Feeding Tube Aspirin 81 mg 07/05/19 10:00 08/11/19 09:53 Baby Aspirin PO 81 mg QDAY TAMMIE Administration Dextrose 50 ml 07/04/19 06:54 D50w (25gm) Syringe IV Q30MIN PRN Hypoglycemia Protocol Docusate Sodium 100 mg 07/10/19 10:00 08/11/19 21:18 Colace PO Not Given BID TAMMIE Enoxaparin Sodium 40 mg 07/24/19 10:00 08/11/19 09:54 Enoxaparin SUB-Q 40 mg QDAY@1000 TAMMIE Administration Famotidine 20 mg 07/23/19 22:00 08/11/19 21:18 Pepcid PO 20 mg BID TAMMIE Administration Fentanyl 50 mcg 07/21/19 15:18 08/09/19 17:44 Sublimaze IV 50 mcg Q10MIN PRN Administration ANALGESIA Fentanyl 25 mcg 08/03/19 11:00 08/09/19 11:43 Duragesic TD 25 mcg Q3D TAMMIE Administration Folic Acid 1 mg 07/05/19 10:00 08/11/19 09:53 Folvite PO 1 mg QDAY TAMMIE Administration Hydrophilic Ointment 1 applic 07/03/19 19:56 07/05/19 17:42 Vaseline Lip Therapy TP 1 applic Q2HR PRN Administration Dry Lips Norepinephrine 4 mg in 250 mls @ 7.5 mls/hr 07/03/19 23:00 07/20/19 01:00 Levophed Drip 4 Mg/Ns 250 Ml IV Infused TITR TAMMIE Titration Protocol 2 MCG/MIN Piperacillin Sod/Tazobactam Sod 4.5 gm in 100 mls @ 200 mls/hr 08/06/19 12:00 08/12/19 06:30 Zosyn/Ns 4.5gm/100ml IV Infused Q6HR TAMMIE Infusion Protocol Sodium Chloride 500 mls @ 0 mls/hr 08/09/19 17:07 Nacl 0.9% 500 Ml IV ONCE TAMMIE As Directed Sodium Chloride 500 mls @ 0 mls/hr 08/09/19 18:56 Nacl 0.9% 500 Ml IV ONCE TAMMIE As Directed Insulin Human Lispro 0 unit 07/07/19 12:00 08/12/19 06:38 Humalog SUB-Q Not Given Q6HR [facility] Protocol Levetiracetam 750 mg 07/06/19 11:00 08/11/19 21:17 Keppra FEEDTUBE 750 mg Q12HR TAMMIE Administration Metoprolol Tartrate 5 mg 07/12/19 15:08 08/11/19 14:47 Metoprolol IV 5 mg Q6HR PRN Administration Tachyarrhythmias Multi-Ingred Cream/Lotion/Oil/Oint 1 applic 07/03/19 19:56 07/05/19 13:19 Artificial Tears Ophth Oint OU 1 applic Q4HR PRN Administration Dry Eye(s) Naloxone HCl 0.1 mg 07/04/19 04:24 Naloxone IV Q2MIN PRN Res Rate </= 8 or 02 SAT < 92% Oxycodone/Acetaminophen 1 tab 07/19/19 14:17 08/11/19 13:06 Percocet 5/325 PO 1 tab Q4H PRN Administration Pain, Moderate (4-6) Scopolamine 1 each 07/10/19 11:00 08/09/19 11:43 Transderm-Scop TD 1 each Q3D TAMMIE Administration Simple Syrup 15 ml 07/04/19 10:04 07/10/19 21:56 Simple Syrup FEEDTUBE 15 ml PRN PRN Administration Hypoglycemia Simple Syrup 30 ml 07/04/19 10:04 Simple Syrup FEEDTUBE PRN PRN Hypoglycemia Sodium Bicarbonate 325 mg 07/04/19 10:04 07/20/19 10:20 Sodium Bicarbonate FEEDTUBE 325 mg PRN PRN Administration For Clogged Feeding Tube Sodium Chloride 10 ml 07/04/19 10:00 08/11/19 21:18 Sodium Chloride Flush Syringe 10 Ml IV 10 ml BID TAMMIE Administration Sodium Chloride 10 ml 07/04/19 04:24 Sodium Chloride Flush Syringe 10 Ml IV PRN PRN LINE FLUSH Sodium Hypochlorite 1 applic 07/10/19 14:00 08/11/19 22:03 Dakin's Half Strength TP 1 appful BID TAMMIE Administration Nutrition/Malnutrition Assess - Dietary Evaluation Nutrition/Malnutrition Findings: Nutrition Notes Start: 07/04/19 09:17 Freq: Status: Active Protocol: Document 08/10/19 08:21 LP (Rec: 08/10/19 08:25 LP [id number]) Nutrition Notes Initial or Follow up Reassessment Current Diagnosis Acute Kidney Injury,COPD, Decubitus(Pressure Ulcer), Diabetes,Hypertension Other Pertinent Diagnosis COVID-19 (+), pneu, seizures, schizophrenia, Buttock and R foot PU, Current Diet Osmolite 1.5 at 55ml/hr Labs/Tests Reviewed Pertinent Medications Reviewed Height 5 ft 11 in Weight 92 kg [place] Body Weight (kg) 78.18 BMI 28.3 Weight Status Overweight Subjective/Other Information Pt tolerating TF at goal rate. Pt waiting to get trach and PEG placed. Percent of energy/protein needs met: 97%/75% Burn Absent Trauma Absent Current % PO Negligible Minimum of two criteria No physical signs of malnutrition #2 Nutrition Diagnosis Increased nutrient needs ( specify in comment below) Diagnosis Progress(for reassessment Continues documentation) #1 Nutrition Diagnosis Inadequate oral intake Diagnosis Progress(for reassessment Continues documentation) Is patient on ventilator? Yes Is Patient Ambulatory and/or Out of Bed No REE-(Hooper-St. Jeor-confined to bed) 2047.172 Calculation Used for Recommendations Hooper-St Jeor Additional Notes Protein: 110-184 (1.2-2g/kg) Fluid: 1 ml/kcal or per MD Nutrition Intervention Change Diet Order: Continue TF Nutrition Support: Osmolite 1.5 at 55ml/hr Flush 50ml q4h for hyponatremia Flush 150 once resolved Kcal 1,980 Protein (gm) 83 Fluid (mL) 1,006 Goal #1 TF tolerance Goal #2 TF to meet at least 75% of energy and protein needs Anticipated Discharge Needs: unable to determine at this time Follow-Up By: 08/15/19 Additional Comments Follow for TF
--- NOTE | 2019-08-12 08:19 | Progress Note ---
Assessment and Plan S/p Cardiopulmonary arrest with ROSC Severe Sepsis with septic shock. Acute hypoxemic respiratory failure on MVS COVID-19 positive with elevated markers Bilateral pneumonia Elevated LFTs. Oropharyngeal dysphagia s/p PEG Acute kidney injury Decubitus ulcers-unstageable Moderate protein calorie malnutriton [id number] metabolic acidosis Leukocytosis Thrombocytosis-worse Microcytic anemia Repeat COVID testing remains positive ( 08/09/2019). Repeat testing in a few days, once negative reconsult surgery for trach and PEG placement Continue with NGT feeding with aspiration precautions Complete course of antibiotics per ID- currently on Zosyn Supportive transfusions to keep HgB >7g/dL Continue with PSV as tolerated, full support at night Continue all care as documented -Continue to coordinate sedation interruption( RN) and SBT( RT) today to optimize chances of success with weaning trial -ABG, CXR prn - continue airborne, droplet and contact isolation for COVID-19 - continue wound care per WCT - sedation prn for target RASS 0 to -1 - continue to wean supplemental oxygen for target O2 sat's > 90% - Daily SAT's and SBT assessment as tolerated - VAP bundle addressed - continue lung protective strategies - continue bronchodilators with pulmonary hygiene per RT - wean per pulmonary driven protocols otherwise - accuchecks with glycemic control per SSI (While critically ill target blood glucose of 140-180 mg/dL; avoid hypoglycemia) - continue to avoid benzodiazepines, reduce the possibility of delirium - prn analgesia per CPOT score - Maintenance of sleep-wake cycle, avoid delirium - continue enteral nutritional support at goal rate as tolerated - VTE prophylaxis-Enoxaparin -Stress ulcer prophylaxis- Famotidine - PT/OT/ROM exercises - continue mobility protocol, off loading and skin assessment for pressure ulcer prevention - Monitor hemodynamics closely -Wright catheter in this critically ill patient with unstageable sacral decubitus ulcer - continue other care per attending / other consultants - discharge planning ongoing concurrently .... Re-evaluate in am & prn CONDITION: CRITICAL PROGNOSIS: GUARDED CODE STATUS: DNAR Called his family to discuss goals of care, wants us to continue to treat aggressively at this time. The high probability of a clinically significant, sudden or life-threatening deterioration of the [respiratory ,cardiovascular, neurology] system(s) required my full and direct attention, intervention and personal management. The aggregate critical care time was [31] minutes without overlap. Time includes spent on; [x] Data Review and interpretation [x] Patient assessment and monitoring of vital signs [x] Documentation [x] Medication orders and management Subjective Date of service: 08/12/19 Principal diagnosis: Bilateral pneumonia, severe sepsis with septic shock, encephalopathy Interval history: The patient is a 69-year-old male with CVA, hypertension, dementia, schizophrenia, alcohol use disorder was admitted to the emergency room after being brought in by EMS with progressive shortness of breath and unresponsiveness. He was noted to have agonal breathing and a faint pulse requiring CPR. Patient was intubated and brought to the hospital. It seems, patient was on home hospice. Currently, remains critically ill, intubated, on mechanical ventilation. His COVID test resulted positive. Patient is seen today for: s/p cardiopulmonary arrest with ROSC; Ac hypoxemic Resp failure on MVS; Severe sepsis with Shock; Bilateral Pneumonia; POSITIVE coronavirus-19 infection. Seen and examined at bedside; 24hour events reviewed; nursing and respiratory care staff consulted; no adverse overnight events reported to me; resting in bed.No fevers with persistent leukocytosis. Remains COVID positive On MVS and tolerating it well; on fentanyl at 1mcg, off norepinephrine Tolerating tube feedings, Mental status changes persist, will spontaneously open eyes Objective Vital Signs - 12hr 08/11/19 08/11/19 08/11/19 21:00 22:00 22:24 Temperature Pulse Rate 99 H 94 H 95 H Pulse Rate [ From Monitor] Respiratory 20 19 26 H Rate Blood Pressure 133/64 123/59 123/63 O2 Sat by Pulse 100 100 100 Oximetry 08/11/19 08/11/19 08/12/19 23:00 23:04 00:00 Temperature 98.8 F Pulse Rate 90 96 H Pulse Rate [ 96 H From Monitor] Respiratory 14 18 Rate Blood Pressure 130/64 128/66 O2 Sat by Pulse 100 100 Oximetry 08/12/19 08/12/19 08/12/19 00:47 01:00 02:00 Temperature Pulse Rate 87 85 82 Pulse Rate [ From Monitor] Respiratory 10 L 12 Rate Blood Pressure 133/65 130/70 117/60 O2 Sat by Pulse 100 100 100 Oximetry 08/12/19 08/12/19 08/12/19 03:00 03:31 04:00 Temperature 98.9 F Pulse Rate 90 97 H Pulse Rate [ 97 H From Monitor] Respiratory 16 15 Rate Blood Pressure 138/67 138/69 O2 Sat by Pulse 100 99 Oximetry 08/12/19 05:00 Temperature Pulse Rate 88 Pulse Rate [ From Monitor] Respiratory 22 Rate Blood Pressure 138/68 O2 Sat by Pulse 100 Oximetry Constitutional: appears uncomfortable, other (eelderly and chronically ill looking AAM, normocep[krystina;ic with mildly increased respiratory effort at rest) Eyes: non-icteric ENT: oropharynx moist, other (ETT 24 cm Pawan) Neck: supple, no lymphadenopathy, no JVD Effort: mildly labored Ascultation: Bilateral: diminished breath sounds, rhonchi Percussion: Bilateral: not dull Cardiovascular: regular rate and rhythm Gastrointestinal: normoactive bowel sounds, soft, non-tender, non-distended, other (+ PEG tube with mild TF leakage) Integumentary: decubitus ulcer (sacrals/p debridement- see wound care notes) Extremities: no cyanosis, no edema, pink and warm, pulses normal, other (contractures) Neurologic: unable to assess Psychiatric: other (Unable to assess re: AMS) CBC and BMP: 08/12/19 03:30 08/12/19 03:30 ABG, PT/INR, D-dimer: ABG ABG pH 7.445 pH Units (7.350-7.450) 08/07/19 11:10 ABG pCO2 50.5 mm Hg 08/07/19 11:10 ABG pO2 73.3 mm Hg (80.0-90.0) L 08/07/19 11:10 ABG O2 Saturation 96.5 % (95.0-99.0) 08/07/19 11:10 PT/INR, D-dimer PT 16.0 Sec. (12.2-14.9) H 07/03/19 22:20 INR 1.26 (0.87-1.13) H 07/03/19 22:20 D-Dimer 1808.06 ng/mlDDU (0-234) H 08/07/19 10:24 Abnormal lab findings: Abnormal Labs 07/03/19 07/03/19 07/03/19 19:57 21:10 21:13 WBC RBC Hgb Hct MCV MCH MCHC RDW Plt Count Lymph % (Auto) Yell % (Auto) Lymph # Yell # Baso # Seg Neutrophils % Seg Neuts % (Manual) Lymphocytes % (Manual) Monocytes % (Manual) Nucleated RBC % Seg Neutrophils # Seg Neutrophils # Man Lymphocytes # (Manual) Monocytes # (Manual) Basophils # (Manual) PT INR D-Dimer ABG pH 7.238 L ABG pO2 210.8 H ABG HCO3 15.4 L ABG O2 Saturation 99.2 H ABG Base Excess -11.1 L ABG Hemoglobin 8.0 L Oxyhemoglobin Sodium 124 L Potassium Chloride 92.9 L Carbon Dioxide 10 L BUN 23 H Creatinine 0.5 L Glucose 118 H POC Glucose Lactic Acid Calcium 7.0 L Magnesium Iron TIBC Ferritin AST 70 H ALT 88 H Lactate Dehydrogenase Troponin T 0.032 H C-Reactive Protein Total Protein 5.0 L Albumin 1.8 L Prealbumin Cholesterol 47 L LDL Cholesterol Direct 25 L HDL Cholesterol 20 L Urine WBC (Auto) 12.0 H Vancomycin Trough Coronavirus (PCR) Crossmatch 07/03/19 07/03/19 07/03/19 22:20 22:20 22:20 WBC 30.5 H RBC 2.96 L Hgb 7.7 L Hct 23.9 L MCV 81 L MCH 26 L MCHC RDW 18.6 H Plt Count 459 H Lymph % (Auto) Yell % (Auto) Lymph # Yell # Baso # Seg Neutrophils % Seg Neuts % (Manual) 93.0 H Lymphocytes % (Manual) 0.5 L Monocytes % (Manual) Nucleated RBC % Seg Neutrophils # Seg Neutrophils # Man 28.4 H Lymphocytes # (Manual) 0.2 L Monocytes # (Manual) Basophils # (Manual) PT 16.0 H INR 1.26 H D-Dimer ABG pH ABG pO2 ABG HCO3 ABG O2 Saturation ABG Base Excess ABG Hemoglobin Oxyhemoglobin Sodium Potassium Chloride Carbon Dioxide BUN Creatinine Glucose POC Glucose Lactic Acid 6.90 H* Calcium Magnesium Iron TIBC Ferritin AST ALT Lactate Dehydrogenase Troponin T C-Reactive Protein Total Protein Albumin Prealbumin Cholesterol LDL Cholesterol Direct HDL Cholesterol Urine WBC (Auto) Vancomycin Trough Coronavirus (PCR) Crossmatch 07/03/19 07/04/19 07/04/19 23:58 05:15 07:05 WBC 17.1 H RBC 3.22 L Hgb 8.3 L Hct 25.4 L MCV 79 L MCH 26 L MCHC RDW 18.6 H Plt Count Lymph % (Auto) Yell % (Auto) Lymph # Yell # Baso # Seg Neutrophils % Seg Neuts % (Manual) 74.0 H Lymphocytes % (Manual) 0 L Monocytes % (Manual) Nucleated RBC % Seg Neutrophils # Seg Neutrophils # Man 12.7 H Lymphocytes # (Manual) 0.0 L Monocytes # (Manual) Basophils # (Manual) PT INR D-Dimer ABG pH 7.310 L ABG pO2 73.2 L ABG HCO3 17.8 L ABG O2 Saturation 93.8 L ABG Base Excess -7.7 L ABG Hemoglobin 9.6 L Oxyhemoglobin 92.3 L Sodium Potassium Chloride Carbon Dioxide BUN Creatinine Glucose POC Glucose Lactic Acid 7.10 H* Calcium Magnesium Iron TIBC Ferritin AST ALT Lactate Dehydrogenase Troponin T C-Reactive Protein Total Protein Albumin Prealbumin Cholesterol LDL Cholesterol Direct HDL Cholesterol Urine WBC (Auto) Vancomycin Trough Coronavirus (PCR) Crossmatch 07/04/19 07/04/19 07/04/19 07:05 07:05 07:05 WBC RBC Hgb Hct MCV MCH MCHC RDW Plt Count Lymph % (Auto) Yell % (Auto) Lymph # Yell # Baso # Seg Neutrophils % Seg Neuts % (Manual) Lymphocytes % (Manual) Monocytes % (Manual) Nucleated RBC % Seg Neutrophils # Seg Neutrophils # Man Lymphocytes # (Manual) Monocytes # (Manual) Basophils # (Manual) PT INR D-Dimer ABG pH ABG pO2 ABG HCO3 ABG O2 Saturation ABG Base Excess ABG Hemoglobin Oxyhemoglobin Sodium 120 L Potassium 5.1 H Chloride 90.0 L Carbon Dioxide 14 L BUN 26 H Creatinine 0.5 L Glucose POC Glucose Lactic Acid 3.30 H* Calcium 8.0 L Magnesium Iron 9 L TIBC 97 L Ferritin AST 73 H ALT 91 H Lactate Dehydrogenase Troponin T C-Reactive Protein Total Protein 5.5 L Albumin 2.0 L Prealbumin Cholesterol LDL Cholesterol Direct HDL Cholesterol Urine WBC (Auto) Vancomycin Trough Coronavirus (PCR) Crossmatch 07/04/19 07/04/19 07/04/19 09:39 09:39 09:39 WBC RBC Hgb Hct MCV MCH MCHC RDW Plt Count Lymph % (Auto) Yell % (Auto) Lymph # Yell # Baso # Seg Neutrophils % Seg Neuts % (Manual) Lymphocytes % (Manual) Monocytes % (Manual) Nucleated RBC % Seg Neutrophils # Seg Neutrophils # Man Lymphocytes # (Manual) Monocytes # (Manual) Basophils # (Manual) PT INR D-Dimer 1419.14 H ABG pH ABG pO2 ABG HCO3 ABG O2 Saturation ABG Base Excess ABG Hemoglobin Oxyhemoglobin Sodium Potassium Chloride Carbon Dioxide BUN Creatinine Glucose POC Glucose Lactic Acid Calcium Magnesium Iron TIBC Ferritin 1719.0 H AST ALT Lactate Dehydrogenase 234 H Troponin T C-Reactive Protein 15.50 H Total Protein Albumin Prealbumin Cholesterol LDL Cholesterol Direct HDL Cholesterol Urine WBC (Auto) Vancomycin Trough Coronavirus (PCR) Crossmatch 07/04/19 07/04/19 07/04/19 10:09 18:08 18:28 WBC RBC Hgb Hct MCV MCH MCHC RDW Plt Count Lymph % (Auto) Yell % (Auto) Lymph # Yell # Baso # Seg Neutrophils % Seg Neuts % (Manual) Lymphocytes % (Manual) Monocytes % (Manual) Nucleated RBC % Seg Neutrophils # Seg Neutrophils # Man Lymphocytes # (Manual) Monocytes # (Manual) Basophils # (Manual) PT INR D-Dimer ABG pH ABG pO2 ABG HCO3 ABG O2 Saturation ABG Base Excess ABG Hemoglobin Oxyhemoglobin Sodium 117 L* Potassium 5.6 H Chloride 90.3 L Carbon Dioxide 16 L BUN 28 H Creatinine 0.5 L Glucose 58 L POC Glucose 65 L Lactic Acid Calcium 8.2 L Magnesium Iron TIBC Ferritin AST ALT Lactate Dehydrogenase Troponin T C-Reactive Protein Total Protein Albumin Prealbumin Cholesterol LDL Cholesterol Direct HDL Cholesterol Urine WBC (Auto) Vancomycin Trough Coronavirus (PCR) Positive A Crossmatch 07/04/19 07/04/19 07/04/19 23:45 Unknown Unknown WBC RBC Hgb Hct MCV MCH MCHC RDW Plt Count Lymph % (Auto) Yell % (Auto) Lymph # Yell # Baso # Seg Neutrophils % Seg Neuts % (Manual) Lymphocytes % (Manual) Monocytes % (Manual) Nucleated RBC % Seg Neutrophils # Seg Neutrophils # Man Lymphocytes # (Manual) Monocytes # (Manual) Basophils # (Manual) PT INR D-Dimer 759.77 H ABG pH ABG pO2 ABG HCO3 ABG O2 Saturation ABG Base Excess ABG Hemoglobin Oxyhemoglobin Sodium 122 L Potassium Chloride 93.0 L Carbon Dioxide 19 L BUN 27 H Creatinine 0.5 L Glucose POC Glucose Lactic Acid Calcium 8.3 L Magnesium Iron TIBC Ferritin 1301.0 H AST ALT Lactate Dehydrogenase Troponin T C-Reactive Protein Total Protein Albumin Prealbumin Cholesterol LDL Cholesterol Direct HDL Cholesterol Urine WBC (Auto) Vancomycin Trough Coronavirus (PCR) Crossmatch 07/04/19 07/05/19 07/05/19 Unknown 03:20 04:00 WBC RBC Hgb Hct MCV MCH MCHC RDW Plt Count Lymph % (Auto) Yell % (Auto) Lymph # Yell # Baso # Seg Neutrophils % Seg Neuts % (Manual) Lymphocytes % (Manual) Monocytes % (Manual) Nucleated RBC % Seg Neutrophils # Seg Neutrophils # Man Lymphocytes # (Manual) Monocytes # (Manual) Basophils # (Manual) PT INR D-Dimer ABG pH ABG pO2 60.6 L ABG HCO3 ABG O2 Saturation 93.5 L ABG Base Excess -2.4 L ABG Hemoglobin 6.9 L Oxyhemoglobin 92.0 L Sodium 125 L Potassium Chloride 92.6 L Carbon Dioxide 19 L BUN 24 H Creatinine 0.6 L Glucose POC Glucose Lactic Acid Calcium 8.2 L Magnesium 1.40 L Iron TIBC Ferritin AST ALT Lactate Dehydrogenase 242 H Troponin T C-Reactive Protein 16.70 H Total Protein Albumin Prealbumin Cholesterol LDL Cholesterol Direct HDL Cholesterol Urine WBC (Auto) Vancomycin Trough Coronavirus (PCR) Crossmatch 07/05/19 07/05/19 07/05/19 10:11 16:15 17:54 WBC 46.4 H* RBC 2.77 L Hgb 7.2 L Hct 21.9 L MCV 79 L MCH 26 L MCHC RDW 19.0 H Plt Count Lymph % (Auto) Yell % (Auto) Lymph # Yell # Baso # Seg Neutrophils % Seg Neuts % (Manual) 82.0 H Lymphocytes % (Manual) 1.0 L Monocytes % (Manual) Nucleated RBC % Seg Neutrophils # Seg Neutrophils # Man 38.0 H Lymphocytes # (Manual) 0.5 L Monocytes # (Manual) Basophils # (Manual) PT INR D-Dimer ABG pH ABG pO2 ABG HCO3 ABG O2 Saturation ABG Base Excess ABG Hemoglobin Oxyhemoglobin Sodium Potassium Chloride Carbon Dioxide BUN Creatinine Glucose POC Glucose 69 L Lactic Acid Calcium Magnesium Iron TIBC Ferritin AST ALT Lactate Dehydrogenase Troponin T C-Reactive Protein Total Protein Albumin Prealbumin Cholesterol LDL Cholesterol Direct HDL Cholesterol Urine WBC (Auto) Vancomycin Trough 23.2 H Coronavirus (PCR) Crossmatch 07/05/19 07/06/1907/05/20 19:58 00:27 00:27 WBC RBC Hgb Hct MCV MCH MCHC RDW Plt Count Lymph % (Auto) Yell % (Auto) Lymph # Yell # Baso # Seg Neutrophils % Seg Neuts % (Manual) Lymphocytes % (Manual) Monocytes % (Manual) Nucleated RBC % Seg Neutrophils # Seg Neutrophils # Man Lymphocytes # (Manual) Monocytes # (Manual) Basophils # (Manual) PT INR D-Dimer 1333.22 H ABG pH ABG pO2 ABG HCO3 ABG O2 Saturation ABG Base Excess ABG Hemoglobin Oxyhemoglobin Sodium 127 L Potassium Chloride Carbon Dioxide BUN Creatinine Glucose POC Glucose Lactic Acid Calcium Magnesium Iron TIBC Ferritin 977.1 H AST ALT Lactate Dehydrogenase Troponin T C-Reactive Protein Total Protein Albumin Prealbumin Cholesterol LDL Cholesterol Direct HDL Cholesterol Urine WBC (Auto) Vancomycin Trough Coronavirus (PCR) Crossmatch 07/06/19 07/06/19 07/06/19 00:27 02:00 02:56 WBC RBC Hgb Hct MCV MCH MCHC RDW Plt Count Lymph % (Auto) Yell % (Auto) Lymph # Yell # Baso # Seg Neutrophils % Seg Neuts % (Manual) Lymphocytes % (Manual) Monocytes % (Manual) Nucleated RBC % Seg Neutrophils # Seg Neutrophils # Man Lymphocytes # (Manual) Monocytes # (Manual) Basophils # (Manual) PT INR D-Dimer ABG pH ABG pO2 70.3 L ABG HCO3 ABG O2 Saturation 94.8 L ABG Base Excess ABG Hemoglobin 8.0 L Oxyhemoglobin 93.2 L Sodium Potassium Chloride Carbon Dioxide BUN Creatinine Glucose POC Glucose 117 H Lactic Acid Calcium Magnesium Iron TIBC Ferritin AST ALT Lactate Dehydrogenase 236 H Troponin T C-Reactive Protein 22.90 H Total Protein Albumin Prealbumin Cholesterol LDL Cholesterol Direct HDL Cholesterol Urine WBC (Auto) Vancomycin Trough Coronavirus (PCR) Crossmatch 07/06/19 07/06/19 07/06/19 03:49 03:49 07:40 WBC 38.8 H RBC 2.51 L Hgb 6.7 L Hct 19.9 L* MCV 79 L MCH 27 L MCHC RDW 19.2 H Plt Count Lymph % (Auto) Yell % (Auto) Lymph # Yell # Baso # Seg Neutrophils % Seg Neuts % (Manual) 90.5 H Lymphocytes % (Manual) 1.0 L Monocytes % (Manual) Nucleated RBC % Seg Neutrophils # Seg Neutrophils # Man 35.1 H Lymphocytes # (Manual) 0.4 L Monocytes # (Manual) Basophils # (Manual) PT INR D-Dimer ABG pH ABG pO2 ABG HCO3 ABG O2 Saturation ABG Base Excess ABG Hemoglobin Oxyhemoglobin Sodium 131 L Potassium Chloride 96.9 L Carbon Dioxide 18 L BUN 23 H Creatinine 0.5 L Glucose POC Glucose Lactic Acid Calcium 8.0 L Magnesium Iron TIBC Ferritin AST ALT Lactate Dehydrogenase Troponin T C-Reactive Protein Total Protein Albumin Prealbumin Cholesterol LDL Cholesterol Direct HDL Cholesterol Urine WBC (Auto) Vancomycin Trough Coronavirus (PCR) Crossmatch See Detail 07/06/19 07/06/19 07/06/19 12:38 14:39 20:00 WBC RBC Hgb Hct MCV MCH MCHC RDW Plt Count Lymph % (Auto) Yell % (Auto) Lymph # Yell # Baso # Seg Neutrophils % Seg Neuts % (Manual) Lymphocytes % (Manual) Monocytes % (Manual) Nucleated RBC % Seg Neutrophils # Seg Neutrophils # Man Lymphocytes # (Manual) Monocytes # (Manual) Basophils # (Manual) PT INR D-Dimer ABG pH ABG pO2 ABG HCO3 ABG O2 Saturation ABG Base Excess ABG Hemoglobin Oxyhemoglobin Sodium Potassium Chloride Carbon Dioxide BUN Creatinine Glucose POC Glucose 112 H 111 H 140 H Lactic Acid Calcium Magnesium Iron TIBC Ferritin AST ALT Lactate Dehydrogenase Troponin T C-Reactive Protein Total Protein Albumin Prealbumin Cholesterol LDL Cholesterol Direct HDL Cholesterol Urine WBC (Auto) Vancomycin Trough Coronavirus (PCR) Crossmatch 07/06/19 07/06/19 07/07/19 22:43 22:56 02:20 WBC RBC Hgb 7.9 L Hct 23.1 L MCV MCH MCHC RDW Plt Count Lymph % (Auto) Yell % (Auto) Lymph # Yell # Baso # Seg Neutrophils % Seg Neuts % (Manual) Lymphocytes % (Manual) Monocytes % (Manual) Nucleated RBC % Seg Neutrophils # Seg Neutrophils # Man Lymphocytes # (Manual) Monocytes # (Manual) Basophils # (Manual) PT INR D-Dimer ABG pH ABG pO2 ABG HCO3 ABG O2 Saturation ABG Base Excess ABG Hemoglobin Oxyhemoglobin Sodium Potassium Chloride Carbon Dioxide BUN Creatinine Glucose POC Glucose 122 H 149 H Lactic Acid Calcium Magnesium Iron TIBC Ferritin AST ALT Lactate Dehydrogenase Troponin T C-Reactive Protein Total Protein Albumin Prealbumin Cholesterol LDL Cholesterol Direct HDL Cholesterol Urine WBC (Auto) Vancomycin Trough Coronavirus (PCR) Crossmatch 07/07/19 07/07/19 07/07/19 04:35 05:27 05:34 WBC 23.1 H RBC 3.00 L Hgb 8.1 L Hct 24.2 L MCV 81 L MCH 27 L MCHC RDW 20.6 H Plt Count Lymph % (Auto) Yell % (Auto) Lymph # Yell # Baso # Seg Neutrophils % Seg Neuts % (Manual) 90.0 H Lymphocytes % (Manual) 2.0 L Monocytes % (Manual) Nucleated RBC % Seg Neutrophils # Seg Neutrophils # Man 20.8 H Lymphocytes # (Manual) 0.5 L Monocytes # (Manual) Basophils # (Manual) PT INR D-Dimer ABG pH ABG pO2 65.8 L ABG HCO3 ABG O2 Saturation 92.2 L ABG Base Excess ABG Hemoglobin 8.3 L Oxyhemoglobin 90.6 L Sodium Potassium Chloride Carbon Dioxide BUN Creatinine Glucose POC Glucose 132 H Lactic Acid Calcium Magnesium Iron TIBC Ferritin AST ALT Lactate Dehydrogenase Troponin T C-Reactive Protein Total Protein Albumin Prealbumin Cholesterol LDL Cholesterol Direct HDL Cholesterol Urine WBC (Auto) Vancomycin Trough Coronavirus (PCR) Crossmatch 07/07/19 07/07/19 07/07/19 05:34 11:50 15:58 WBC RBC Hgb 8.1 L Hct 24.2 L MCV MCH MCHC RDW Plt Count Lymph % (Auto) Yell % (Auto) Lymph # Yell # Baso # Seg Neutrophils % Seg Neuts % (Manual) Lymphocytes % (Manual) Monocytes % (Manual) Nucleated RBC % Seg Neutrophils # Seg Neutrophils # Man Lymphocytes # (Manual) Monocytes # (Manual) Basophils # (Manual) PT INR D-Dimer ABG pH ABG pO2 ABG HCO3 ABG O2 Saturation ABG Base Excess ABG Hemoglobin Oxyhemoglobin Sodium 135 L Potassium 3.3 L Chloride Carbon Dioxide 20 L BUN 27 H Creatinine 0.6 L Glucose 121 H POC Glucose 123 H Lactic Acid Calcium 8.0 L Magnesium Iron TIBC Ferritin AST ALT Lactate Dehydrogenase Troponin T C-Reactive Protein Total Protein Albumin Prealbumin Cholesterol LDL Cholesterol Direct HDL Cholesterol Urine WBC (Auto) Vancomycin Trough Coronavirus (PCR) Crossmatch 07/07/19 07/07/19 07/07/19 17:42 22:00 23:53 WBC RBC Hgb 8.0 L Hct 23.4 L MCV MCH MCHC RDW Plt Count Lymph % (Auto) Yell % (Auto) Lymph # Yell # Baso # Seg Neutrophils % Seg Neuts % (Manual) Lymphocytes % (Manual) Monocytes % (Manual) Nucleated RBC % Seg Neutrophils # Seg Neutrophils # Man Lymphocytes # (Manual) Monocytes # (Manual) Basophils # (Manual) PT INR D-Dimer ABG pH ABG pO2 ABG HCO3 ABG O2 Saturation ABG Base Excess ABG Hemoglobin Oxyhemoglobin Sodium Potassium Chloride Carbon Dioxide BUN Creatinine Glucose POC Glucose 107 H 117 H Lactic Acid Calcium Magnesium Iron TIBC Ferritin AST ALT Lactate Dehydrogenase Troponin T C-Reactive Protein Total Protein Albumin Prealbumin Cholesterol LDL Cholesterol Direct HDL Cholesterol Urine WBC (Auto) Vancomycin Trough Coronavirus (PCR) Crossmatch 07/08/19 07/08/19 07/08/19 00:45 00:45 00:45 WBC RBC Hgb Hct MCV MCH MCHC RDW Plt Count Lymph % (Auto) Yell % (Auto) Lymph # Yell # Baso # Seg Neutrophils % Seg Neuts % (Manual) Lymphocytes % (Manual) Monocytes % (Manual) Nucleated RBC % Seg Neutrophils # Seg Neutrophils # Man Lymphocytes # (Manual) Monocytes # (Manual) Basophils # (Manual) PT INR D-Dimer 1142.18 H ABG pH ABG pO2 ABG HCO3 ABG O2 Saturation ABG Base Excess ABG Hemoglobin Oxyhemoglobin Sodium Potassium Chloride Carbon Dioxide BUN Creatinine Glucose POC Glucose Lactic Acid Calcium Magnesium Iron TIBC Ferritin 839.0 H AST ALT Lactate Dehydrogenase 253 H Troponin T C-Reactive Protein 18.90 H Total Protein Albumin Prealbumin Cholesterol LDL Cholesterol Direct HDL Cholesterol Urine WBC (Auto) Vancomycin Trough Coronavirus (PCR) Crossmatch 07/08/19 07/08/19 07/08/19 04:30 05:11 12:02 WBC RBC Hgb Hct MCV MCH MCHC RDW Plt Count Lymph % (Auto) Yell % (Auto) Lymph # Yell # Baso # Seg Neutrophils % Seg Neuts % (Manual) Lymphocytes % (Manual) Monocytes % (Manual) Nucleated RBC % Seg Neutrophils # Seg Neutrophils # Man Lymphocytes # (Manual) Monocytes # (Manual) Basophils # (Manual) PT INR D-Dimer ABG pH ABG pO2 66.0 L ABG HCO3 ABG O2 Saturation 92.3 L ABG Base Excess ABG Hemoglobin 7.7 L Oxyhemoglobin 90.7 L Sodium Potassium Chloride Carbon Dioxide BUN Creatinine Glucose POC Glucose 108 H 153 H Lactic Acid Calcium Magnesium Iron TIBC Ferritin AST ALT Lactate Dehydrogenase Troponin T C-Reactive Protein Total Protein Albumin Prealbumin Cholesterol LDL Cholesterol Direct HDL Cholesterol Urine WBC (Auto) Vancomycin Trough Coronavirus (PCR) Crossmatch 07/08/19 07/08/19 07/08/19 16:15 18:22 23:35 WBC RBC Hgb Hct MCV MCH MCHC RDW Plt Count Lymph % (Auto) Yell % (Auto) Lymph # Yell # Baso # Seg Neutrophils % Seg Neuts % (Manual) Lymphocytes % (Manual) Monocytes % (Manual) Nucleated RBC % Seg Neutrophils # Seg Neutrophils # Man Lymphocytes # (Manual) Monocytes # (Manual) Basophils # (Manual) PT INR D-Dimer ABG pH ABG pO2 ABG HCO3 ABG O2 Saturation ABG Base Excess ABG Hemoglobin Oxyhemoglobin Sodium 134 L Potassium 3.3 L Chloride Carbon Dioxide 21 L BUN 27 H Creatinine 0.6 L Glucose 146 H POC Glucose 134 H 133 H Lactic Acid Calcium Magnesium Iron TIBC Ferritin AST ALT Lactate Dehydrogenase Troponin T C-Reactive Protein Total Protein Albumin Prealbumin Cholesterol LDL Cholesterol Direct HDL Cholesterol Urine WBC (Auto) Vancomycin Trough Coronavirus (PCR) Crossmatch 07/09/19 07/09/19 07/09/19 04:30 04:30 05:00 WBC 18.9 H RBC 2.77 L Hgb 7.4 L Hct 22.8 L MCV 82 L MCH 27 L MCHC RDW 20.9 H Plt Count 130 L Lymph % (Auto) Yell % (Auto) Lymph # Yell # Baso # Seg Neutrophils % Seg Neuts % (Manual) 84.0 H Lymphocytes % (Manual) 0 L Monocytes % (Manual) Nucleated RBC % Seg Neutrophils # Seg Neutrophils # Man 15.9 H Lymphocytes # (Manual) 0.0 L Monocytes # (Manual) Basophils # (Manual) PT INR D-Dimer ABG pH ABG pO2 ABG HCO3 ABG O2 Saturation ABG Base Excess ABG Hemoglobin Oxyhemoglobin Sodium Potassium 3.1 L Chloride Carbon Dioxide BUN 26 H Creatinine 0.5 L Glucose 125 H POC Glucose 155 H Lactic Acid Calcium Magnesium Iron TIBC Ferritin AST ALT Lactate Dehydrogenase Troponin T C-Reactive Protein Total Protein Albumin Prealbumin Cholesterol LDL Cholesterol Direct HDL Cholesterol Urine WBC (Auto) Vancomycin Trough Coronavirus (PCR) Crossmatch 07/09/19 07/09/19 07/09/19 05:55 12:22 17:50 WBC RBC Hgb Hct MCV MCH MCHC RDW Plt Count Lymph % (Auto) Yell % (Auto) Lymph # Yell # Baso # Seg Neutrophils % Seg Neuts % (Manual) Lymphocytes % (Manual) Monocytes % (Manual) Nucleated RBC % Seg Neutrophils # Seg Neutrophils # Man Lymphocytes # (Manual) Monocytes # (Manual) Basophils # (Manual) PT INR D-Dimer ABG pH ABG pO2 62.8 L ABG HCO3 ABG O2 Saturation ABG Base Excess ABG Hemoglobin 6.1 L Oxyhemoglobin 93.9 L Sodium Potassium Chloride Carbon Dioxide BUN Creatinine Glucose POC Glucose 115 H 133 H Lactic Acid Calcium Magnesium Iron TIBC Ferritin AST ALT Lactate Dehydrogenase Troponin T C-Reactive Protein Total Protein Albumin Prealbumin Cholesterol LDL Cholesterol Direct HDL Cholesterol Urine WBC (Auto) Vancomycin Trough Coronavirus (PCR) Crossmatch 07/10/19 07/10/19 07/10/19 00:38 04:00 04:00 WBC RBC Hgb Hct MCV MCH MCHC RDW Plt Count Lymph % (Auto) Yell % (Auto) Lymph # Yell # Baso # Seg Neutrophils % Seg Neuts % (Manual) Lymphocytes % (Manual) Monocytes % (Manual) Nucleated RBC % Seg Neutrophils # Seg Neutrophils # Man Lymphocytes # (Manual) Monocytes # (Manual) Basophils # (Manual) PT INR D-Dimer ABG pH ABG pO2 ABG HCO3 ABG O2 Saturation ABG Base Excess ABG Hemoglobin Oxyhemoglobin Sodium Potassium Chloride 107.9 H Carbon Dioxide BUN 26 H Creatinine 0.4 L Glucose 137 H POC Glucose 122 H Lactic Acid Calcium Magnesium 1.50 L Iron TIBC Ferritin AST ALT Lactate Dehydrogenase 277 H Troponin T C-Reactive Protein 15.10 H Total Protein Albumin Prealbumin Cholesterol LDL Cholesterol Direct HDL Cholesterol Urine WBC (Auto) Vancomycin Trough Coronavirus (PCR) Crossmatch 07/10/19 07/10/19 07/10/19 04:07 05:21 17:25 WBC RBC Hgb Hct MCV MCH MCHC RDW Plt Count Lymph % (Auto) Yell % (Auto) Lymph # Yell # Baso # Seg Neutrophils % Seg Neuts % (Manual) Lymphocytes % (Manual) Monocytes % (Manual) Nucleated RBC % Seg Neutrophils # Seg Neutrophils # Man Lymphocytes # (Manual) Monocytes # (Manual) Basophils # (Manual) PT INR D-Dimer ABG pH ABG pO2 65.6 L ABG HCO3 26.3 H ABG O2 Saturation ABG Base Excess ABG Hemoglobin 6.7 L Oxyhemoglobin Sodium Potassium Chloride Carbon Dioxide BUN Creatinine Glucose POC Glucose 144 H 113 H Lactic Acid Calcium Magnesium Iron TIBC Ferritin AST ALT Lactate Dehydrogenase Troponin T C-Reactive Protein Total Protein Albumin Prealbumin Cholesterol LDL Cholesterol Direct HDL Cholesterol Urine WBC (Auto) Vancomycin Trough Coronavirus (PCR) Crossmatch 07/11/19 07/11/19 07/11/19 00:07 05:14 05:25 WBC RBC Hgb Hct MCV MCH MCHC RDW Plt Count Lymph % (Auto) Yell % (Auto) Lymph # Yell # Baso # Seg Neutrophils % Seg Neuts % (Manual) Lymphocytes % (Manual) Monocytes % (Manual) Nucleated RBC % Seg Neutrophils # Seg Neutrophils # Man Lymphocytes # (Manual) Monocytes # (Manual) Basophils # (Manual) PT INR D-Dimer ABG pH ABG pO2 ABG HCO3 ABG O2 Saturation ABG Base Excess ABG Hemoglobin 5.8 L Oxyhemoglobin Sodium Potassium Chloride 108.0 H Carbon Dioxide BUN 26 H Creatinine 0.4 L Glucose 110 H POC Glucose 121 H Lactic Acid Calcium Magnesium Iron TIBC Ferritin AST ALT Lactate Dehydrogenase Troponin T C-Reactive Protein Total Protein Albumin Prealbumin Cholesterol LDL Cholesterol Direct HDL Cholesterol Urine WBC (Auto) Vancomycin Trough Coronavirus (PCR) Crossmatch 07/11/19 07/11/19 07/11/19 12:27 18:00 23:42 WBC RBC Hgb Hct MCV MCH MCHC RDW Plt Count Lymph % (Auto) Yell % (Auto) Lymph # Yell # Baso # Seg Neutrophils % Seg Neuts % (Manual) Lymphocytes % (Manual) Monocytes % (Manual) Nucleated RBC % Seg Neutrophils # Seg Neutrophils # Man Lymphocytes # (Manual) Monocytes # (Manual) Basophils # (Manual) PT INR D-Dimer ABG pH ABG pO2 ABG HCO3 ABG O2 Saturation ABG Base Excess ABG Hemoglobin Oxyhemoglobin Sodium Potassium Chloride Carbon Dioxide BUN Creatinine Glucose POC Glucose 158 H 141 H 142 H Lactic Acid Calcium Magnesium Iron TIBC Ferritin AST ALT Lactate Dehydrogenase Troponin T C-Reactive Protein Total Protein Albumin Prealbumin Cholesterol LDL Cholesterol Direct HDL Cholesterol Urine WBC (Auto) Vancomycin Trough Coronavirus (PCR) Crossmatch 07/12/19 07/12/19 07/12/19 04:46 04:46 05:23 WBC 23.6 H RBC 2.51 L Hgb 6.7 L Hct 20.8 L MCV 83 L MCH 27 L MCHC RDW 20.3 H Plt Count Lymph % (Auto) Yell % (Auto) Lymph # Yell # Baso # Seg Neutrophils % Seg Neuts % (Manual) 94.0 H Lymphocytes % (Manual) 4.0 L Monocytes % (Manual) Nucleated RBC % Seg Neutrophils # Seg Neutrophils # Man 22.2 H Lymphocytes # (Manual) 0.9 L Monocytes # (Manual) Basophils # (Manual) PT INR D-Dimer ABG pH ABG pO2 ABG HCO3 ABG O2 Saturation ABG Base Excess ABG Hemoglobin Oxyhemoglobin Sodium Potassium Chloride 107.1 H Carbon Dioxide BUN 25 H Creatinine 0.4 L Glucose 122 H POC Glucose 118 H Lactic Acid Calcium Magnesium Iron TIBC Ferritin AST ALT Lactate Dehydrogenase Troponin T C-Reactive Protein Total Protein Albumin Prealbumin Cholesterol LDL Cholesterol Direct HDL Cholesterol Urine WBC (Auto) Vancomycin Trough Coronavirus (PCR) Crossmatch 07/12/19 07/12/19 07/12/19 08:49 11:36 18:15 WBC RBC Hgb Hct MCV MCH MCHC RDW Plt Count Lymph % (Auto) Yell % (Auto) Lymph # Yell # Baso # Seg Neutrophils % Seg Neuts % (Manual) Lymphocytes % (Manual) Monocytes % (Manual) Nucleated RBC % Seg Neutrophils # Seg Neutrophils # Man Lymphocytes # (Manual) Monocytes # (Manual) Basophils # (Manual) PT INR D-Dimer ABG pH ABG pO2 ABG HCO3 ABG O2 Saturation ABG Base Excess ABG Hemoglobin Oxyhemoglobin Sodium Potassium Chloride Carbon Dioxide BUN Creatinine Glucose POC Glucose 124 H 110 H Lactic Acid Calcium Magnesium Iron TIBC Ferritin AST ALT Lactate Dehydrogenase Troponin T C-Reactive Protein Total Protein Albumin Prealbumin Cholesterol LDL Cholesterol Direct HDL Cholesterol Urine WBC (Auto) Vancomycin Trough Coronavirus (PCR) Crossmatch See Detail 07/12/19 07/13/19 07/13/19 23:16 05:26 06:50 WBC 23.9 H RBC 2.58 L Hgb 6.9 L Hct 21.5 L MCV 83 L MCH 27 L MCHC RDW 19.0 H Plt Count Lymph % (Auto) Yell % (Auto) Lymph # Yell # Baso # Seg Neutrophils % Seg Neuts % (Manual) 96.0 H Lymphocytes % (Manual) 3.0 L Monocytes % (Manual) Nucleated RBC % Seg Neutrophils # Seg Neutrophils # Man 22.9 H Lymphocytes # (Manual) 0.7 L Monocytes # (Manual) Basophils # (Manual) PT INR D-Dimer ABG pH ABG pO2 ABG HCO3 ABG O2 Saturation ABG Base Excess ABG Hemoglobin Oxyhemoglobin Sodium Potassium Chloride Carbon Dioxide BUN Creatinine Glucose POC Glucose 108 H 126 H Lactic Acid Calcium Magnesium Iron TIBC Ferritin AST ALT Lactate Dehydrogenase Troponin T C-Reactive Protein Total Protein Albumin Prealbumin Cholesterol LDL Cholesterol Direct HDL Cholesterol Urine WBC (Auto) Vancomycin Trough Coronavirus (PCR) Crossmatch 07/13/19 07/13/19 07/13/19 06:50 12:38 18:05 WBC RBC Hgb Hct MCV MCH MCHC RDW Plt Count Lymph % (Auto) Yell % (Auto) Lymph # Yell # Baso # Seg Neutrophils % Seg Neuts % (Manual) Lymphocytes % (Manual) Monocytes % (Manual) Nucleated RBC % Seg Neutrophils # Seg Neutrophils # Man Lymphocytes # (Manual) Monocytes # (Manual) Basophils # (Manual) PT INR D-Dimer ABG pH ABG pO2 ABG HCO3 ABG O2 Saturation ABG Base Excess ABG Hemoglobin Oxyhemoglobin Sodium Potassium Chloride Carbon Dioxide BUN 33 H Creatinine 0.5 L Glucose 136 H POC Glucose 164 H 145 H Lactic Acid Calcium Magnesium Iron TIBC Ferritin AST ALT Lactate Dehydrogenase Troponin T C-Reactive Protein Total Protein Albumin Prealbumin Cholesterol LDL Cholesterol Direct HDL Cholesterol Urine WBC (Auto) Vancomycin Trough Coronavirus (PCR) Crossmatch 07/13/19 07/14/19 07/14/19 18:30 00:21 04:40 WBC 22.9 H RBC 2.45 L Hgb 6.6 L Hct 21.1 L MCV MCH 27 L MCHC 31 L RDW 19.2 H Plt Count Lymph % (Auto) Yell % (Auto) Lymph # Yell # Baso # Seg Neutrophils % Seg Neuts % (Manual) 91.0 H Lymphocytes % (Manual) 7.0 L Monocytes % (Manual) Nucleated RBC % Seg Neutrophils # Seg Neutrophils # Man 20.8 H Lymphocytes # (Manual) Monocytes # (Manual) Basophils # (Manual) PT INR D-Dimer ABG pH ABG pO2 58.1 L ABG HCO3 ABG O2 Saturation 88.7 L ABG Base Excess ABG Hemoglobin 7.8 L Oxyhemoglobin 86.8 L Sodium Potassium Chloride Carbon Dioxide BUN Creatinine Glucose POC Glucose 118 H Lactic Acid Calcium Magnesium Iron TIBC Ferritin AST ALT Lactate Dehydrogenase Troponin T C-Reactive Protein Total Protein Albumin Prealbumin Cholesterol LDL Cholesterol Direct HDL Cholesterol Urine WBC (Auto) Vancomycin Trough Coronavirus (PCR) Crossmatch 07/14/19 07/14/19 07/14/19 04:40 05:38 05:45 WBC RBC Hgb Hct MCV MCH MCHC RDW Plt Count Lymph % (Auto) Yell % (Auto) Lymph # Yell # Baso # Seg Neutrophils % Seg Neuts % (Manual) Lymphocytes % (Manual) Monocytes % (Manual) Nucleated RBC % Seg Neutrophils # Seg Neutrophils # Man Lymphocytes # (Manual) Monocytes # (Manual) Basophils # (Manual) PT INR D-Dimer ABG pH 7.230 L ABG pO2 72.1 L ABG HCO3 ABG O2 Saturation 89.3 L ABG Base Excess -2.7 L ABG Hemoglobin 6.7 L Oxyhemoglobin 87.7 L Sodium Potassium Chloride 107.4 H Carbon Dioxide BUN 45 H Creatinine Glucose 101 H POC Glucose 154 H Lactic Acid Calcium Magnesium Iron TIBC Ferritin AST ALT Lactate Dehydrogenase Troponin T C-Reactive Protein Total Protein Albumin Prealbumin Cholesterol LDL Cholesterol Direct HDL Cholesterol Urine WBC (Auto) Vancomycin Trough Coronavirus (PCR) Crossmatch 07/14/19 07/14/19 07/14/19 12:25 18:20 19:01 WBC 22.4 H RBC 2.70 L Hgb 7.5 L Hct 23.3 L MCV MCH MCHC RDW 19.5 H Plt Count Lymph % (Auto) Yell % (Auto) Lymph # Yell # Baso # Seg Neutrophils % Seg Neuts % (Manual) Lymphocytes % (Manual) Monocytes % (Manual) Nucleated RBC % Seg Neutrophils # Seg Neutrophils # Man Lymphocytes # (Manual) Monocytes # (Manual) Basophils # (Manual) PT INR D-Dimer ABG pH ABG pO2 ABG HCO3 ABG O2 Saturation ABG Base Excess ABG Hemoglobin Oxyhemoglobin Sodium Potassium Chloride Carbon Dioxide BUN Creatinine Glucose POC Glucose 136 H 131 H Lactic Acid Calcium Magnesium Iron TIBC Ferritin AST ALT Lactate Dehydrogenase Troponin T C-Reactive Protein Total Protein Albumin Prealbumin Cholesterol LDL Cholesterol Direct HDL Cholesterol Urine WBC (Auto) Vancomycin Trough Coronavirus (PCR) Crossmatch 07/15/19 07/15/19 07/15/19 00:17 04:35 05:18 WBC 20.6 H RBC 2.41 L Hgb 6.8 L Hct 20.7 L MCV MCH MCHC RDW 20.2 H Plt Count Lymph % (Auto) Yell % (Auto) Lymph # Yell # Baso # Seg Neutrophils % Seg Neuts % (Manual) 92.0 H Lymphocytes % (Manual) 5.0 L Monocytes % (Manual) Nucleated RBC % Seg Neutrophils # Seg Neutrophils # Man 19.0 H Lymphocytes # (Manual) 1.0 L Monocytes # (Manual) Basophils # (Manual) PT INR D-Dimer ABG pH 7.342 L ABG pO2 ABG HCO3 ABG O2 Saturation ABG Base Excess -3.1 L ABG Hemoglobin 7.2 L Oxyhemoglobin 94.9 L Sodium Potassium Chloride Carbon Dioxide BUN Creatinine Glucose POC Glucose 116 H Lactic Acid Calcium Magnesium Iron TIBC Ferritin AST ALT Lactate Dehydrogenase Troponin T C-Reactive Protein Total Protein Albumin Prealbumin Cholesterol LDL Cholesterol Direct HDL Cholesterol Urine WBC (Auto) Vancomycin Trough Coronavirus (PCR) Crossmatch 07/15/19 07/15/19 07/15/19 05:18 05:57 11:28 WBC RBC Hgb Hct MCV MCH MCHC RDW Plt Count Lymph % (Auto) Yell % (Auto) Lymph # Yell # Baso # Seg Neutrophils % Seg Neuts % (Manual) Lymphocytes % (Manual) Monocytes % (Manual) Nucleated RBC % Seg Neutrophils # Seg Neutrophils # Man Lymphocytes # (Manual) Monocytes # (Manual) Basophils # (Manual) PT INR D-Dimer ABG pH ABG pO2 ABG HCO3 ABG O2 Saturation ABG Base Excess ABG Hemoglobin Oxyhemoglobin Sodium Potassium Chloride Carbon Dioxide 20 L BUN 59 H Creatinine Glucose 140 H POC Glucose 139 H 117 H Lactic Acid Calcium Magnesium Iron TIBC Ferritin AST ALT Lactate Dehydrogenase Troponin T C-Reactive Protein Total Protein Albumin Prealbumin Cholesterol LDL Cholesterol Direct HDL Cholesterol Urine WBC (Auto) Vancomycin Trough Coronavirus (PCR) Crossmatch 07/15/19 07/16/19 07/16/19 18:13 00:06 03:43 WBC RBC Hgb Hct MCV MCH MCHC RDW Plt Count Lymph % (Auto) Yell % (Auto) Lymph # Yell # Baso # Seg Neutrophils % Seg Neuts % (Manual) Lymphocytes % (Manual) Monocytes % (Manual) Nucleated RBC % Seg Neutrophils # Seg Neutrophils # Man Lymphocytes # (Manual) Monocytes # (Manual) Basophils # (Manual) PT INR D-Dimer ABG pH 7.344 L ABG pO2 68.6 L ABG HCO3 ABG O2 Saturation ABG Base Excess -3.5 L ABG Hemoglobin 6.1 L Oxyhemoglobin 93.3 L Sodium Potassium Chloride Carbon Dioxide BUN Creatinine Glucose POC Glucose 114 H 119 H Lactic Acid Calcium Magnesium Iron TIBC Ferritin AST ALT Lactate Dehydrogenase Troponin T C-Reactive Protein Total Protein Albumin Prealbumin Cholesterol LDL Cholesterol Direct HDL Cholesterol Urine WBC (Auto) Vancomycin Trough Coronavirus (PCR) Crossmatch 07/16/19 07/16/19 07/16/19 04:41 04:41 12:09 WBC 19.6 H RBC 2.81 L Hgb 7.7 L Hct 24.0 L MCV MCH 27 L MCHC RDW 19.4 H Plt Count 514 H Lymph % (Auto) 6.7 L Yell % (Auto) Lymph # Yell # 1.0 H Baso # Seg Neutrophils % 87.0 H Seg Neuts % (Manual) Lymphocytes % (Manual) Monocytes % (Manual) Nucleated RBC % Seg Neutrophils # 17.0 H Seg Neutrophils # Man Lymphocytes # (Manual) Monocytes # (Manual) Basophils # (Manual) PT INR D-Dimer ABG pH ABG pO2 ABG HCO3 ABG O2 Saturation ABG Base Excess ABG Hemoglobin Oxyhemoglobin Sodium Potassium 5.9 H Chloride Carbon Dioxide 21 L BUN 73 H Creatinine 2.0 H Glucose POC Glucose 141 H Lactic Acid Calcium Magnesium Iron TIBC Ferritin AST ALT Lactate Dehydrogenase Troponin T C-Reactive Protein Total Protein Albumin Prealbumin Cholesterol LDL Cholesterol Direct HDL Cholesterol Urine WBC (Auto) Vancomycin Trough Coronavirus (PCR) Crossmatch 07/16/19 07/16/19 07/17/19 16:19 17:45 00:16 WBC RBC Hgb Hct MCV MCH MCHC RDW Plt Count Lymph % (Auto) Yell % (Auto) Lymph # Yell # Baso # Seg Neutrophils % Seg Neuts % (Manual) Lymphocytes % (Manual) Monocytes % (Manual) Nucleated RBC % Seg Neutrophils # Seg Neutrophils # Man Lymphocytes # (Manual) Monocytes # (Manual) Basophils # (Manual) PT INR D-Dimer ABG pH ABG pO2 ABG HCO3 ABG O2 Saturation ABG Base Excess ABG Hemoglobin Oxyhemoglobin Sodium Potassium 5.1 H Chloride Carbon Dioxide 20 L BUN 72 H Creatinine 1.7 H Glucose 128 H POC Glucose 181 H 164 H Lactic Acid Calcium Magnesium Iron TIBC Ferritin AST ALT Lactate Dehydrogenase Troponin T C-Reactive Protein Total Protein Albumin Prealbumin Cholesterol LDL Cholesterol Direct HDL Cholesterol Urine WBC (Auto) Vancomycin Trough Coronavirus (PCR) Crossmatch 07/17/19 07/17/19 07/17/19 04:20 04:39 04:39 WBC 16.1 H RBC 2.92 L Hgb 8.0 L Hct 25.5 L MCV MCH MCHC 31 L RDW 19.7 H Plt Count 564 H Lymph % (Auto) 3.6 L Yell % (Auto) 7.4 H Lymph # 0.6 L Yell # 1.2 H Baso # Seg Neutrophils % 87.5 H Seg Neuts % (Manual) Lymphocytes % (Manual) Monocytes % (Manual) Nucleated RBC % Seg Neutrophils # 14.1 H Seg Neutrophils # Man Lymphocytes # (Manual) Monocytes # (Manual) Basophils # (Manual) PT INR D-Dimer ABG pH 7.231 L ABG pO2 95.3 H ABG HCO3 ABG O2 Saturation ABG Base Excess -5.0 L ABG Hemoglobin 7.9 L Oxyhemoglobin 94.8 L Sodium Potassium Chloride 107.8 H Carbon Dioxide 21 L BUN 68 H Creatinine Glucose POC Glucose Lactic Acid Calcium Magnesium Iron TIBC Ferritin AST ALT Lactate Dehydrogenase Troponin T C-Reactive Protein Total Protein Albumin Prealbumin Cholesterol LDL Cholesterol Direct HDL Cholesterol Urine WBC (Auto) Vancomycin Trough Coronavirus (PCR) Crossmatch 07/17/19 07/17/19 07/17/19 05:28 12:11 18:48 WBC RBC Hgb Hct MCV MCH MCHC RDW Plt Count Lymph % (Auto) Yell % (Auto) Lymph # Yell # Baso # Seg Neutrophils % Seg Neuts % (Manual) Lymphocytes % (Manual) Monocytes % (Manual) Nucleated RBC % Seg Neutrophils # Seg Neutrophils # Man Lymphocytes # (Manual) Monocytes # (Manual) Basophils # (Manual) PT INR D-Dimer ABG pH ABG pO2 ABG HCO3 ABG O2 Saturation ABG Base Excess ABG Hemoglobin Oxyhemoglobin Sodium Potassium Chloride Carbon Dioxide BUN Creatinine Glucose POC Glucose 121 H 125 H 174 H Lactic Acid Calcium Magnesium Iron TIBC Ferritin AST ALT Lactate Dehydrogenase Troponin T C-Reactive Protein Total Protein Albumin Prealbumin Cholesterol LDL Cholesterol Direct HDL Cholesterol Urine WBC (Auto) Vancomycin Trough Coronavirus (PCR) Crossmatch 07/17/19 07/17/19 07/18/19 19:55 23:57 02:30 WBC RBC Hgb Hct MCV MCH MCHC RDW Plt Count Lymph % (Auto) Yell % (Auto) Lymph # Yell # Baso # Seg Neutrophils % Seg Neuts % (Manual) Lymphocytes % (Manual) Monocytes % (Manual) Nucleated RBC % Seg Neutrophils # Seg Neutrophils # Man Lymphocytes # (Manual) Monocytes # (Manual) Basophils # (Manual) PT INR D-Dimer ABG pH 7.344 L 7.294 L ABG pO2 78.5 L 119.2 H ABG HCO3 ABG O2 Saturation ABG Base Excess -3.3 L -2.6 L ABG Hemoglobin 8.6 L 8.1 L Oxyhemoglobin 94.8 L Sodium Potassium Chloride Carbon Dioxide BUN Creatinine Glucose POC Glucose 148 H Lactic Acid Calcium Magnesium Iron TIBC Ferritin AST ALT Lactate Dehydrogenase Troponin T C-Reactive Protein Total Protein Albumin Prealbumin Cholesterol LDL Cholesterol Direct HDL Cholesterol Urine WBC (Auto) Vancomycin Trough Coronavirus (PCR) Crossmatch 07/18/19 07/18/19 07/18/19 04:49 05:22 05:22 WBC 15.9 H RBC 3.00 L Hgb 8.1 L Hct 26.0 L MCV MCH 27 L MCHC 31 L RDW 19.4 H Plt Count 733 H Lymph % (Auto) 6.3 L Yell % (Auto) 7.4 H Lymph # 1.0 L Yell # 1.2 H Baso # 0.2 H Seg Neutrophils % 83.8 H Seg Neuts % (Manual) Lymphocytes % (Manual) Monocytes % (Manual) Nucleated RBC % Seg Neutrophils # 13.3 H Seg Neutrophils # Man Lymphocytes # (Manual) Monocytes # (Manual) Basophils # (Manual) PT INR D-Dimer ABG pH ABG pO2 ABG HCO3 ABG O2 Saturation ABG Base Excess ABG Hemoglobin Oxyhemoglobin Sodium Potassium Chloride 110.6 H Carbon Dioxide BUN 61 H Creatinine Glucose 109 H POC Glucose 116 H Lactic Acid Calcium Magnesium Iron TIBC Ferritin AST ALT Lactate Dehydrogenase Troponin T C-Reactive Protein Total Protein Albumin Prealbumin Cholesterol LDL Cholesterol Direct HDL Cholesterol Urine WBC (Auto) Vancomycin Trough Coronavirus (PCR) Crossmatch 07/18/19 07/18/19 07/18/19 12:23 18:06 22:20 WBC RBC Hgb Hct MCV MCH MCHC RDW Plt Count Lymph % (Auto) Yell % (Auto) Lymph # Yell # Baso # Seg Neutrophils % Seg Neuts % (Manual) Lymphocytes % (Manual) Monocytes % (Manual) Nucleated RBC % Seg Neutrophils # Seg Neutrophils # Man Lymphocytes # (Manual) Monocytes # (Manual) Basophils # (Manual) PT INR D-Dimer ABG pH 7.338 L ABG pO2 135.1 H ABG HCO3 ABG O2 Saturation ABG Base Excess ABG Hemoglobin 9.2 L Oxyhemoglobin Sodium Potassium Chloride Carbon Dioxide BUN Creatinine Glucose POC Glucose 114 H 113 H Lactic Acid Calcium Magnesium Iron TIBC Ferritin AST ALT Lactate Dehydrogenase Troponin T C-Reactive Protein Total Protein Albumin Prealbumin Cholesterol LDL Cholesterol Direct HDL Cholesterol Urine WBC (Auto) Vancomycin Trough Coronavirus (PCR) Crossmatch 07/18/19 07/19/19 07/19/19 23:33 03:45 05:18 WBC RBC Hgb Hct MCV MCH MCHC RDW Plt Count Lymph % (Auto) Yell % (Auto) Lymph # Yell # Baso # Seg Neutrophils % Seg Neuts % (Manual) Lymphocytes % (Manual) Monocytes % (Manual) Nucleated RBC % Seg Neutrophils # Seg Neutrophils # Man Lymphocytes # (Manual) Monocytes # (Manual) Basophils # (Manual) PT INR D-Dimer ABG pH 7.342 L ABG pO2 95.0 H ABG HCO3 ABG O2 Saturation ABG Base Excess ABG Hemoglobin 8.5 L Oxyhemoglobin Sodium Potassium Chloride Carbon Dioxide BUN Creatinine Glucose POC Glucose 125 H 111 H Lactic Acid Calcium Magnesium Iron TIBC Ferritin AST ALT Lactate Dehydrogenase Troponin T C-Reactive Protein Total Protein Albumin Prealbumin Cholesterol LDL Cholesterol Direct HDL Cholesterol Urine WBC (Auto) Vancomycin Trough Coronavirus (PCR) Crossmatch 07/19/19 07/19/19 07/19/19 08:45 08:45 11:47 WBC 15.9 H RBC 3.31 L Hgb 9.1 L Hct 28.4 L MCV MCH 27 L MCHC RDW 19.1 H Plt Count 858 H Lymph % (Auto) 4.9 L Yell % (Auto) 8.1 H Lymph # 0.8 L Yell # 1.3 H Baso # Seg Neutrophils % 85.5 H Seg Neuts % (Manual) Lymphocytes % (Manual) Monocytes % (Manual) Nucleated RBC % Seg Neutrophils # 13.6 H Seg Neutrophils # Man Lymphocytes # (Manual) Monocytes # (Manual) Basophils # (Manual) PT INR D-Dimer ABG pH ABG pO2 ABG HCO3 ABG O2 Saturation ABG Base Excess ABG Hemoglobin Oxyhemoglobin Sodium Potassium Chloride 111.6 H Carbon Dioxide BUN 50 H Creatinine 0.7 L Glucose 118 H POC Glucose 114 H Lactic Acid Calcium Magnesium Iron TIBC Ferritin AST ALT Lactate Dehydrogenase Troponin T C-Reactive Protein Total Protein Albumin Prealbumin Cholesterol LDL Cholesterol Direct HDL Cholesterol Urine WBC (Auto) Vancomycin Trough Coronavirus (PCR) Crossmatch 07/19/19 07/19/19 07/20/19 18:25 23:44 04:39 WBC RBC Hgb Hct MCV MCH MCHC RDW Plt Count Lymph % (Auto) Yell % (Auto) Lymph # Yell # Baso # Seg Neutrophils % Seg Neuts % (Manual) Lymphocytes % (Manual) Monocytes % (Manual) Nucleated RBC % Seg Neutrophils # Seg Neutrophils # Man Lymphocytes # (Manual) Monocytes # (Manual) Basophils # (Manual) PT INR D-Dimer ABG pH ABG pO2 ABG HCO3 ABG O2 Saturation ABG Base Excess ABG Hemoglobin Oxyhemoglobin Sodium Potassium Chloride 110.3 H Carbon Dioxide BUN 44 H Creatinine 0.6 L Glucose 120 H POC Glucose 115 H 117 H Lactic Acid Calcium Magnesium Iron TIBC Ferritin AST ALT Lactate Dehydrogenase Troponin T C-Reactive Protein Total Protein Albumin Prealbumin Cholesterol LDL Cholesterol Direct HDL Cholesterol Urine WBC (Auto) Vancomycin Trough Coronavirus (PCR) Crossmatch 07/20/19 07/21/19 07/21/19 05:30 11:59 17:40 WBC RBC Hgb Hct MCV MCH MCHC RDW Plt Count Lymph % (Auto) Yell % (Auto) Lymph # Yell # Baso # Seg Neutrophils % Seg Neuts % (Manual) Lymphocytes % (Manual) Monocytes % (Manual) Nucleated RBC % Seg Neutrophils # Seg Neutrophils # Man Lymphocytes # (Manual) Monocytes # (Manual) Basophils # (Manual) PT INR D-Dimer ABG pH ABG pO2 ABG HCO3 ABG O2 Saturation ABG Base Excess ABG Hemoglobin Oxyhemoglobin Sodium Potassium Chloride Carbon Dioxide BUN Creatinine Glucose POC Glucose 131 H 122 H 125 H Lactic Acid Calcium Magnesium Iron TIBC Ferritin AST ALT Lactate Dehydrogenase Troponin T C-Reactive Protein Total Protein Albumin Prealbumin Cholesterol LDL Cholesterol Direct HDL Cholesterol Urine WBC (Auto) Vancomycin Trough Coronavirus (PCR) Crossmatch 07/22/19 07/22/19 07/22/19 05:38 05:38 12:29 WBC 12.6 H RBC 3.19 L Hgb 8.9 L Hct 27.5 L MCV MCH MCHC RDW 18.9 H Plt Count 1101 H* Lymph % (Auto) Yell % (Auto) 12.2 H Lymph # Yell # 1.5 H Baso # Seg Neutrophils % 72.8 H Seg Neuts % (Manual) 76.0 H Lymphocytes % (Manual) 7.0 L Monocytes % (Manual) 14.0 H Nucleated RBC % 1.0 H Seg Neutrophils # 9.2 H Seg Neutrophils # Man 9.6 H Lymphocytes # (Manual) 0.9 L Monocytes # (Manual) 1.8 H Basophils # (Manual) PT INR D-Dimer ABG pH ABG pO2 ABG HCO3 ABG O2 Saturation ABG Base Excess ABG Hemoglobin Oxyhemoglobin Sodium Potassium 3.4 L Chloride Carbon Dioxide BUN 29 H Creatinine 0.5 L Glucose POC Glucose 116 H Lactic Acid Calcium Magnesium Iron TIBC Ferritin AST ALT Lactate Dehydrogenase Troponin T C-Reactive Protein Total Protein Albumin Prealbumin Cholesterol LDL Cholesterol Direct HDL Cholesterol Urine WBC (Auto) Vancomycin Trough Coronavirus (PCR) Crossmatch 07/22/19 07/22/19 07/23/19 18:20 23:51 04:52 WBC RBC Hgb Hct MCV MCH MCHC RDW Plt Count Lymph % (Auto) Yell % (Auto) Lymph # Yell # Baso # Seg Neutrophils % Seg Neuts % (Manual) Lymphocytes % (Manual) Monocytes % (Manual) Nucleated RBC % Seg Neutrophils # Seg Neutrophils # Man Lymphocytes # (Manual) Monocytes # (Manual) Basophils # (Manual) PT INR D-Dimer ABG pH ABG pO2 ABG HCO3 ABG O2 Saturation ABG Base Excess ABG Hemoglobin Oxyhemoglobin Sodium Potassium Chloride Carbon Dioxide BUN 24 H Creatinine 0.4 L Glucose POC Glucose 107 H 110 H Lactic Acid Calcium Magnesium Iron TIBC Ferritin AST ALT Lactate Dehydrogenase Troponin T C-Reactive Protein Total Protein Albumin Prealbumin Cholesterol LDL Cholesterol Direct HDL Cholesterol Urine WBC (Auto) Vancomycin Trough Coronavirus (PCR) Crossmatch 07/23/19 07/23/19 07/24/19 06:00 23:15 04:40 WBC RBC Hgb Hct MCV MCH MCHC RDW Plt Count Lymph % (Auto) Yell % (Auto) Lymph # Yell # Baso # Seg Neutrophils % Seg Neuts % (Manual) Lymphocytes % (Manual) Monocytes % (Manual) Nucleated RBC % Seg Neutrophils # Seg Neutrophils # Man Lymphocytes # (Manual) Monocytes # (Manual) Basophils # (Manual) PT INR D-Dimer ABG pH ABG pO2 73.5 L ABG HCO3 27.0 H 28.5 H ABG O2 Saturation 94.5 L ABG Base Excess ABG Hemoglobin 9.4 L 8.9 L Oxyhemoglobin 94.0 L 92.7 L Sodium Potassium Chloride Carbon Dioxide BUN Creatinine Glucose POC Glucose 117 H Lactic Acid Calcium Magnesium Iron TIBC Ferritin AST ALT Lactate Dehydrogenase Troponin T C-Reactive Protein Total Protein Albumin Prealbumin Cholesterol LDL Cholesterol Direct HDL Cholesterol Urine WBC (Auto) Vancomycin Trough Coronavirus (PCR) Crossmatch 07/24/19 07/24/19 07/25/19 05:25 12:06 00:16 WBC RBC Hgb Hct MCV MCH MCHC RDW Plt Count Lymph % (Auto) Yell % (Auto) Lymph # Yell # Baso # Seg Neutrophils % Seg Neuts % (Manual) Lymphocytes % (Manual) Monocytes % (Manual) Nucleated RBC % Seg Neutrophils # Seg Neutrophils # Man Lymphocytes # (Manual) Monocytes # (Manual) Basophils # (Manual) PT INR D-Dimer ABG pH ABG pO2 ABG HCO3 ABG O2 Saturation ABG Base Excess ABG Hemoglobin Oxyhemoglobin Sodium Potassium Chloride Carbon Dioxide BUN Creatinine Glucose POC Glucose 114 H 108 H 106 H Lactic Acid Calcium Magnesium Iron TIBC Ferritin AST ALT Lactate Dehydrogenase Troponin T C-Reactive Protein Total Protein Albumin Prealbumin Cholesterol LDL Cholesterol Direct HDL Cholesterol Urine WBC (Auto) Vancomycin Trough Coronavirus (PCR) Crossmatch 07/25/19 07/25/19 07/25/19 05:14 05:14 05:17 WBC 17.8 H RBC 3.32 L Hgb 9.2 L Hct 28.6 L MCV MCH MCHC RDW 19.9 H Plt Count 994 H Lymph % (Auto) Yell % (Auto) Lymph # Yell # Baso # Seg Neutrophils % Seg Neuts % (Manual) 82.0 H Lymphocytes % (Manual) 5.0 L Monocytes % (Manual) Nucleated RBC % Seg Neutrophils # Seg Neutrophils # Man 14.6 H Lymphocytes # (Manual) 0.9 L Monocytes # (Manual) 1.2 H Basophils # (Manual) PT INR D-Dimer ABG pH ABG pO2 ABG HCO3 ABG O2 Saturation ABG Base Excess ABG Hemoglobin Oxyhemoglobin Sodium Potassium Chloride Carbon Dioxide BUN Creatinine 0.4 L Glucose 110 H POC Glucose 107 H Lactic Acid Calcium Magnesium Iron TIBC Ferritin AST ALT Lactate Dehydrogenase Troponin T C-Reactive Protein Total Protein Albumin Prealbumin Cholesterol LDL Cholesterol Direct HDL Cholesterol Urine WBC (Auto) Vancomycin Trough Coronavirus (PCR) Crossmatch 07/25/19 07/25/19 07/26/19 11:55 23:49 06:01 WBC RBC Hgb Hct MCV MCH MCHC RDW Plt Count Lymph % (Auto) Yell % (Auto) Lymph # Yell # Baso # Seg Neutrophils % Seg Neuts % (Manual) Lymphocytes % (Manual) Monocytes % (Manual) Nucleated RBC % Seg Neutrophils # Seg Neutrophils # Man Lymphocytes # (Manual) Monocytes # (Manual) Basophils # (Manual) PT INR D-Dimer ABG pH ABG pO2 ABG HCO3 ABG O2 Saturation ABG Base Excess ABG Hemoglobin Oxyhemoglobin Sodium Potassium Chloride Carbon Dioxide BUN Creatinine Glucose POC Glucose 123 H 118 H 106 H Lactic Acid Calcium Magnesium Iron TIBC Ferritin AST ALT Lactate Dehydrogenase Troponin T C-Reactive Protein Total Protein Albumin Prealbumin Cholesterol LDL Cholesterol Direct HDL Cholesterol Urine WBC (Auto) Vancomycin Trough Coronavirus (PCR) Crossmatch 07/26/19 07/27/19 07/27/19 17:02 00:28 05:16 WBC RBC Hgb Hct MCV MCH MCHC RDW Plt Count Lymph % (Auto) Yell % (Auto) Lymph # Yell # Baso # Seg Neutrophils % Seg Neuts % (Manual) Lymphocytes % (Manual) Monocytes % (Manual) Nucleated RBC % Seg Neutrophils # Seg Neutrophils # Man Lymphocytes # (Manual) Monocytes # (Manual) Basophils # (Manual) PT INR D-Dimer ABG pH ABG pO2 63.4 L ABG HCO3 31.3 H ABG O2 Saturation 92.7 L ABG Base Excess 6.3 H ABG Hemoglobin 7.6 L Oxyhemoglobin 90.9 L Sodium Potassium Chloride Carbon Dioxide BUN Creatinine Glucose POC Glucose 116 H 158 H Lactic Acid Calcium Magnesium Iron TIBC Ferritin AST ALT Lactate Dehydrogenase Troponin T C-Reactive Protein Total Protein Albumin Prealbumin Cholesterol LDL Cholesterol Direct HDL Cholesterol Urine WBC (Auto) Vancomycin Trough Coronavirus (PCR) Crossmatch 07/28/19 07/28/19 07/28/19 10:13 10:13 23:54 WBC 18.5 H RBC 3.20 L Hgb 8.8 L Hct 26.8 L MCV MCH 27 L MCHC RDW 19.9 H Plt Count 730 H Lymph % (Auto) Yell % (Auto) Lymph # Yell # Baso # Seg Neutrophils % Seg Neuts % (Manual) Lymphocytes % (Manual) Monocytes % (Manual) Nucleated RBC % Seg Neutrophils # Seg Neutrophils # Man Lymphocytes # (Manual) Monocytes # (Manual) Basophils # (Manual) PT INR D-Dimer ABG pH ABG pO2 ABG HCO3 ABG O2 Saturation ABG Base Excess ABG Hemoglobin Oxyhemoglobin Sodium Potassium 3.2 L Chloride 97.5 L Carbon Dioxide 31 H BUN Creatinine 0.5 L Glucose POC Glucose 120 H Lactic Acid Calcium Magnesium Iron TIBC Ferritin AST ALT Lactate Dehydrogenase Troponin T C-Reactive Protein Total Protein Albumin Prealbumin Cholesterol LDL Cholesterol Direct HDL Cholesterol Urine WBC (Auto) Vancomycin Trough Coronavirus (PCR) Crossmatch 07/29/19 07/29/19 07/29/19 11:57 17:43 Unknown WBC RBC Hgb Hct MCV MCH MCHC RDW Plt Count Lymph % (Auto) Yell % (Auto) Lymph # Yell # Baso # Seg Neutrophils % Seg Neuts % (Manual) Lymphocytes % (Manual) Monocytes % (Manual) Nucleated RBC % Seg Neutrophils # Seg Neutrophils # Man Lymphocytes # (Manual) Monocytes # (Manual) Basophils # (Manual) PT INR D-Dimer ABG pH ABG pO2 ABG HCO3 ABG O2 Saturation ABG Base Excess ABG Hemoglobin Oxyhemoglobin Sodium Potassium Chloride Carbon Dioxide BUN Creatinine Glucose POC Glucose 112 H Lactic Acid Calcium Magnesium Iron TIBC Ferritin AST ALT Lactate Dehydrogenase Troponin T C-Reactive Protein Total Protein Albumin Prealbumin Cholesterol LDL Cholesterol Direct HDL Cholesterol Urine WBC (Auto) 63.0 H Vancomycin Trough Coronavirus (PCR) Positive A Crossmatch 07/30/19 07/30/19 07/30/19 00:20 04:35 04:35 WBC 24.3 H RBC 3.12 L Hgb 8.5 L Hct 26.3 L MCV MCH 27 L MCHC RDW 20.2 H Plt Count 550 H Lymph % (Auto) Yell % (Auto) Lymph # Yell # Baso # Seg Neutrophils % Seg Neuts % (Manual) Lymphocytes % (Manual) Monocytes % (Manual) Nucleated RBC % Seg Neutrophils # Seg Neutrophils # Man Lymphocytes # (Manual) Monocytes # (Manual) Basophils # (Manual) PT INR D-Dimer ABG pH ABG pO2 ABG HCO3 ABG O2 Saturation ABG Base Excess ABG Hemoglobin Oxyhemoglobin Sodium Potassium 3.0 L Chloride 96.3 L Carbon Dioxide 32 H BUN Creatinine 0.5 L Glucose POC Glucose 106 H Lactic Acid Calcium Magnesium Iron TIBC Ferritin AST ALT Lactate Dehydrogenase Troponin T C-Reactive Protein Total Protein Albumin Prealbumin Cholesterol LDL Cholesterol Direct HDL Cholesterol Urine WBC (Auto) Vancomycin Trough Coronavirus (PCR) Crossmatch 07/31/19 07/31/19 07/31/19 04:42 04:42 11:33 WBC 23.8 H RBC 3.10 L Hgb 8.4 L Hct 26.1 L MCV MCH 27 L MCHC RDW 19.6 H Plt Count 561 H Lymph % (Auto) Yell % (Auto) Lymph # Yell # Baso # Seg Neutrophils % Seg Neuts % (Manual) Lymphocytes % (Manual) Monocytes % (Manual) Nucleated RBC % Seg Neutrophils # Seg Neutrophils # Man Lymphocytes # (Manual) Monocytes # (Manual) Basophils # (Manual) PT INR D-Dimer ABG pH ABG pO2 ABG HCO3 ABG O2 Saturation ABG Base Excess ABG Hemoglobin Oxyhemoglobin Sodium 135 L Potassium Chloride 93.9 L Carbon Dioxide 32 H BUN Creatinine 0.4 L Glucose POC Glucose 116 H Lactic Acid Calcium Magnesium Iron TIBC Ferritin AST ALT Lactate Dehydrogenase Troponin T C-Reactive Protein Total Protein Albumin 1.6 L Prealbumin 0.037 L Cholesterol LDL Cholesterol Direct HDL Cholesterol Urine WBC (Auto) Vancomycin Trough Coronavirus (PCR) Crossmatch 07/31/19 08/01/19 08/01/19 23:33 04:57 04:57 WBC 26.7 H RBC 3.12 L Hgb 8.5 L Hct 26.3 L MCV MCH 27 L MCHC RDW 19.2 H Plt Count 602 H Lymph % (Auto) Yell % (Auto) Lymph # Yell # Baso # Seg Neutrophils % Seg Neuts % (Manual) 93.0 H Lymphocytes % (Manual) 2.0 L Monocytes % (Manual) Nucleated RBC % Seg Neutrophils # Seg Neutrophils # Man 24.8 H Lymphocytes # (Manual) 0.5 L Monocytes # (Manual) 1.1 H Basophils # (Manual) PT INR D-Dimer ABG pH ABG pO2 ABG HCO3 ABG O2 Saturation ABG Base Excess ABG Hemoglobin Oxyhemoglobin Sodium 132 L Potassium Chloride 93.8 L Carbon Dioxide 31 H BUN Creatinine 0.3 L Glucose POC Glucose 148 H Lactic Acid Calcium 8.1 L Magnesium Iron TIBC Ferritin AST ALT Lactate Dehydrogenase Troponin T C-Reactive Protein Total Protein Albumin Prealbumin Cholesterol LDL Cholesterol Direct HDL Cholesterol Urine WBC (Auto) Vancomycin Trough Coronavirus (PCR) Crossmatch 08/01/19 08/02/19 08/02/19 12:16 00:22 05:24 WBC RBC Hgb Hct MCV MCH MCHC RDW Plt Count Lymph % (Auto) Yell % (Auto) Lymph # Yell # Baso # Seg Neutrophils % Seg Neuts % (Manual) Lymphocytes % (Manual) Monocytes % (Manual) Nucleated RBC % Seg Neutrophils # Seg Neutrophils # Man Lymphocytes # (Manual) Monocytes # (Manual) Basophils # (Manual) PT INR D-Dimer ABG pH ABG pO2 ABG HCO3 ABG O2 Saturation ABG Base Excess ABG Hemoglobin Oxyhemoglobin Sodium Potassium Chloride Carbon Dioxide BUN Creatinine Glucose POC Glucose 120 H 119 H 113 H Lactic Acid Calcium Magnesium Iron TIBC Ferritin AST ALT Lactate Dehydrogenase Troponin T C-Reactive Protein Total Protein Albumin Prealbumin Cholesterol LDL Cholesterol Direct HDL Cholesterol Urine WBC (Auto) Vancomycin Trough Coronavirus (PCR) Crossmatch 08/03/19 08/03/19 08/03/19 05:20 12:01 23:48 WBC RBC Hgb Hct MCV MCH MCHC RDW Plt Count Lymph % (Auto) Yell % (Auto) Lymph # Yell # Baso # Seg Neutrophils % Seg Neuts % (Manual) Lymphocytes % (Manual) Monocytes % (Manual) Nucleated RBC % Seg Neutrophils # Seg Neutrophils # Man Lymphocytes # (Manual) Monocytes # (Manual) Basophils # (Manual) PT INR D-Dimer ABG pH ABG pO2 ABG HCO3 ABG O2 Saturation ABG Base Excess ABG Hemoglobin Oxyhemoglobin Sodium Potassium Chloride Carbon Dioxide BUN Creatinine Glucose POC Glucose 118 H 106 H 120 H Lactic Acid Calcium Magnesium Iron TIBC Ferritin AST ALT Lactate Dehydrogenase Troponin T C-Reactive Protein Total Protein Albumin Prealbumin Cholesterol LDL Cholesterol Direct HDL Cholesterol Urine WBC (Auto) Vancomycin Trough Coronavirus (PCR) Crossmatch 08/04/19 08/04/19 08/04/19 05:38 05:38 06:29 WBC 26.1 H RBC 2.77 L Hgb 7.5 L Hct 23.2 L MCV MCH 27 L MCHC RDW 19.2 H Plt Count 648 H Lymph % (Auto) Yell % (Auto) Lymph # Yell # Baso # Seg Neutrophils % Seg Neuts % (Manual) 90.5 H Lymphocytes % (Manual) 3.5 L Monocytes % (Manual) Nucleated RBC % Seg Neutrophils # Seg Neutrophils # Man 23.6 H Lymphocytes # (Manual) 0.9 L Monocytes # (Manual) 1.2 H Basophils # (Manual) PT INR D-Dimer ABG pH ABG pO2 ABG HCO3 ABG O2 Saturation ABG Base Excess ABG Hemoglobin Oxyhemoglobin Sodium 132 L Potassium 3.4 L D Chloride 92.7 L Carbon Dioxide 33 H BUN Creatinine 0.2 L Glucose POC Glucose 108 H Lactic Acid Calcium 8.1 L Magnesium Iron TIBC Ferritin AST ALT Lactate Dehydrogenase Troponin T C-Reactive Protein Total Protein Albumin Prealbumin Cholesterol LDL Cholesterol Direct HDL Cholesterol Urine WBC (Auto) Vancomycin Trough Coronavirus (PCR) Crossmatch 08/04/19 08/05/19 08/05/19 12:30 04:58 04:58 WBC 21.0 H RBC 2.63 L Hgb 7.2 L Hct 21.9 L MCV 83 L MCH 27 L MCHC RDW 18.9 H Plt Count 691 H Lymph % (Auto) Yell % (Auto) Lymph # Yell # Baso # Seg Neutrophils % Seg Neuts % (Manual) 86.0 H Lymphocytes % (Manual) 3.0 L Monocytes % (Manual) 10.0 H Nucleated RBC % Seg Neutrophils # Seg Neutrophils # Man 18.1 H Lymphocytes # (Manual) 0.6 L Monocytes # (Manual) 2.1 H Basophils # (Manual) PT INR D-Dimer ABG pH ABG pO2 ABG HCO3 ABG O2 Saturation ABG Base Excess ABG Hemoglobin Oxyhemoglobin Sodium 134 L Potassium 3.2 L Chloride 93.2 L Carbon Dioxide 34 H BUN 8 L Creatinine 0.3 L Glucose POC Glucose 138 H Lactic Acid Calcium 8.1 L Magnesium Iron TIBC Ferritin AST ALT Lactate Dehydrogenase Troponin T C-Reactive Protein Total Protein Albumin Prealbumin Cholesterol LDL Cholesterol Direct HDL Cholesterol Urine WBC (Auto) Vancomycin Trough Coronavirus (PCR) Crossmatch 08/05/19 08/05/19 08/05/19 11:53 17:57 23:58 WBC RBC Hgb Hct MCV MCH MCHC RDW Plt Count Lymph % (Auto) Yell % (Auto) Lymph # Yell # Baso # Seg Neutrophils % Seg Neuts % (Manual) Lymphocytes % (Manual) Monocytes % (Manual) Nucleated RBC % Seg Neutrophils # Seg Neutrophils # Man Lymphocytes # (Manual) Monocytes # (Manual) Basophils # (Manual) PT INR D-Dimer ABG pH ABG pO2 ABG HCO3 ABG O2 Saturation ABG Base Excess ABG Hemoglobin Oxyhemoglobin Sodium Potassium Chloride Carbon Dioxide BUN Creatinine Glucose POC Glucose 106 H 111 H 116 H Lactic Acid Calcium Magnesium Iron TIBC Ferritin AST ALT Lactate Dehydrogenase Troponin T C-Reactive Protein Total Protein Albumin Prealbumin Cholesterol LDL Cholesterol Direct HDL Cholesterol Urine WBC (Auto) Vancomycin Trough Coronavirus (PCR) Crossmatch 08/06/19 08/06/19 08/06/19 04:11 04:11 06:04 WBC 20.8 H RBC 2.80 L Hgb 7.6 L Hct 23.5 L MCV MCH 27 L MCHC RDW 19.0 H Plt Count 723 H Lymph % (Auto) Yell % (Auto) Lymph # Yell # Baso # Seg Neutrophils % Seg Neuts % (Manual) 88.0 H Lymphocytes % (Manual) 3.0 L Monocytes % (Manual) Nucleated RBC % Seg Neutrophils # Seg Neutrophils # Man 18.3 H Lymphocytes # (Manual) 0.6 L Monocytes # (Manual) Basophils # (Manual) 0.2 H PT INR D-Dimer ABG pH ABG pO2 ABG HCO3 ABG O2 Saturation ABG Base Excess ABG Hemoglobin Oxyhemoglobin Sodium Potassium 3.4 L Chloride 95.2 L Carbon Dioxide 32 H BUN Creatinine 0.3 L Glucose POC Glucose 108 H Lactic Acid Calcium 8.2 L Magnesium Iron TIBC Ferritin AST ALT Lactate Dehydrogenase Troponin T C-Reactive Protein Total Protein Albumin Prealbumin Cholesterol LDL Cholesterol Direct HDL Cholesterol Urine WBC (Auto) Vancomycin Trough Coronavirus (PCR) Crossmatch 08/06/19 08/06/19 08/07/19 12:23 17:13 00:21 WBC RBC Hgb Hct MCV MCH MCHC RDW Plt Count Lymph % (Auto) Yell % (Auto) Lymph # Yell # Baso # Seg Neutrophils % Seg Neuts % (Manual) Lymphocytes % (Manual) Monocytes % (Manual) Nucleated RBC % Seg Neutrophils # Seg Neutrophils # Man Lymphocytes # (Manual) Monocytes # (Manual) Basophils # (Manual) PT INR D-Dimer ABG pH ABG pO2 ABG HCO3 ABG O2 Saturation ABG Base Excess ABG Hemoglobin Oxyhemoglobin Sodium Potassium Chloride Carbon Dioxide BUN Creatinine Glucose POC Glucose 112 H 132 H 147 H Lactic Acid Calcium Magnesium Iron TIBC Ferritin AST ALT Lactate Dehydrogenase Troponin T C-Reactive Protein Total Protein Albumin Prealbumin Cholesterol LDL Cholesterol Direct HDL Cholesterol Urine WBC (Auto) Vancomycin Trough Coronavirus (PCR) Crossmatch 08/07/19 08/07/19 08/07/19 05:16 05:23 05:23 WBC 30.3 H RBC 2.69 L Hgb 7.1 L Hct 22.2 L MCV 83 L MCH 27 L MCHC RDW 19.1 H Plt Count 650 H Lymph % (Auto) Yell % (Auto) Lymph # Yell # Baso # Seg Neutrophils % Seg Neuts % (Manual) 88.0 H Lymphocytes % (Manual) 5.0 L Monocytes % (Manual) Nucleated RBC % Seg Neutrophils # Seg Neutrophils # Man 26.7 H Lymphocytes # (Manual) Monocytes # (Manual) 2.1 H Basophils # (Manual) PT INR D-Dimer ABG pH ABG pO2 ABG HCO3 ABG O2 Saturation ABG Base Excess ABG Hemoglobin Oxyhemoglobin Sodium 135 L Potassium 3.4 L Chloride 95.4 L Carbon Dioxide 32 H BUN Creatinine 0.4 L Glucose 120 H POC Glucose 120 H Lactic Acid Calcium 7.7 L Magnesium Iron TIBC Ferritin AST ALT Lactate Dehydrogenase Troponin T C-Reactive Protein Total Protein Albumin Prealbumin Cholesterol LDL Cholesterol Direct HDL Cholesterol Urine WBC (Auto) Vancomycin Trough Coronavirus (PCR) Crossmatch 08/07/19 08/07/19 08/07/19 10:24 10:24 11:10 WBC RBC Hgb Hct MCV MCH MCHC RDW Plt Count Lymph % (Auto) Yell % (Auto) Lymph # Yell # Baso # Seg Neutrophils % Seg Neuts % (Manual) Lymphocytes % (Manual) Monocytes % (Manual) Nucleated RBC % Seg Neutrophils # Seg Neutrophils # Man Lymphocytes # (Manual) Monocytes # (Manual) Basophils # (Manual) PT INR D-Dimer 1808.06 H ABG pH ABG pO2 73.3 L ABG HCO3 33.9 H ABG O2 Saturation ABG Base Excess 9.0 H ABG Hemoglobin 6.3 L Oxyhemoglobin 94.3 L Sodium Potassium Chloride Carbon Dioxide BUN Creatinine Glucose POC Glucose Lactic Acid Calcium Magnesium Iron TIBC Ferritin AST ALT Lactate Dehydrogenase Troponin T C-Reactive Protein 11.10 H Total Protein Albumin Prealbumin Cholesterol LDL Cholesterol Direct HDL Cholesterol Urine WBC (Auto) Vancomycin Trough Coronavirus (PCR) Crossmatch 08/07/19 08/08/19 08/08/19 12:01 04:41 04:41 WBC 22.1 H RBC 2.82 L Hgb 7.7 L Hct 23.6 L MCV MCH 27 L MCHC RDW 19.1 H Plt Count 722 H Lymph % (Auto) Yell % (Auto) Lymph # Yell # Baso # Seg Neutrophils % Seg Neuts % (Manual) 90.0 H Lymphocytes % (Manual) 3.0 L Monocytes % (Manual) Nucleated RBC % Seg Neutrophils # Seg Neutrophils # Man 19.9 H Lymphocytes # (Manual) 0.7 L Monocytes # (Manual) 1.3 H Basophils # (Manual) PT INR D-Dimer ABG pH ABG pO2 ABG HCO3 ABG O2 Saturation ABG Base Excess ABG Hemoglobin Oxyhemoglobin Sodium 136 L Potassium Chloride 97.8 L Carbon Dioxide BUN Creatinine 0.3 L Glucose 105 H POC Glucose 130 H Lactic Acid Calcium 7.8 L Magnesium Iron TIBC Ferritin AST ALT Lactate Dehydrogenase Troponin T C-Reactive Protein Total Protein Albumin Prealbumin Cholesterol LDL Cholesterol Direct HDL Cholesterol Urine WBC (Auto) Vancomycin Trough Coronavirus (PCR) Crossmatch 08/08/19 08/08/19 08/09/19 11:46 18:35 00:12 WBC RBC Hgb Hct MCV MCH MCHC RDW Plt Count Lymph % (Auto) Yell % (Auto) Lymph # Yell # Baso # Seg Neutrophils % Seg Neuts % (Manual) Lymphocytes % (Manual) Monocytes % (Manual) Nucleated RBC % Seg Neutrophils # Seg Neutrophils # Man Lymphocytes # (Manual) Monocytes # (Manual) Basophils # (Manual) PT INR D-Dimer ABG pH ABG pO2 ABG HCO3 ABG O2 Saturation ABG Base Excess ABG Hemoglobin Oxyhemoglobin Sodium Potassium Chloride Carbon Dioxide BUN Creatinine Glucose POC Glucose 117 H 117 H 117 H Lactic Acid Calcium Magnesium Iron TIBC Ferritin AST ALT Lactate Dehydrogenase Troponin T C-Reactive Protein Total Protein Albumin Prealbumin Cholesterol LDL Cholesterol Direct HDL Cholesterol Urine WBC (Auto) Vancomycin Trough Coronavirus (PCR) Crossmatch 08/09/19 08/09/19 08/09/19 05:33 12:22 17:48 WBC RBC Hgb Hct MCV MCH MCHC RDW Plt Count Lymph % (Auto) Yell % (Auto) Lymph # Yell # Baso # Seg Neutrophils % Seg Neuts % (Manual) Lymphocytes % (Manual) Monocytes % (Manual) Nucleated RBC % Seg Neutrophils # Seg Neutrophils # Man Lymphocytes # (Manual) Monocytes # (Manual) Basophils # (Manual) PT INR D-Dimer ABG pH ABG pO2 ABG HCO3 ABG O2 Saturation ABG Base Excess ABG Hemoglobin Oxyhemoglobin Sodium Potassium Chloride Carbon Dioxide BUN Creatinine Glucose POC Glucose 119 H 133 H 123 H Lactic Acid Calcium Magnesium Iron TIBC Ferritin AST ALT Lactate Dehydrogenase Troponin T C-Reactive Protein Total Protein Albumin Prealbumin Cholesterol LDL Cholesterol Direct HDL Cholesterol Urine WBC (Auto) Vancomycin Trough Coronavirus (PCR) Crossmatch 08/09/19 08/09/19 08/10/19 17:59 18:15 00:02 WBC RBC Hgb 6.7 L Hct 20.4 L MCV MCH MCHC RDW Plt Count Lymph % (Auto) Yell % (Auto) Lymph # Yell # Baso # Seg Neutrophils % Seg Neuts % (Manual) Lymphocytes % (Manual) Monocytes % (Manual) Nucleated RBC % Seg Neutrophils # Seg Neutrophils # Man Lymphocytes # (Manual) Monocytes # (Manual) Basophils # (Manual) PT INR D-Dimer ABG pH ABG pO2 ABG HCO3 ABG O2 Saturation ABG Base Excess ABG Hemoglobin Oxyhemoglobin Sodium Potassium Chloride Carbon Dioxide BUN Creatinine Glucose POC Glucose 124 H Lactic Acid Calcium Magnesium Iron TIBC Ferritin AST ALT Lactate Dehydrogenase Troponin T C-Reactive Protein Total Protein Albumin Prealbumin Cholesterol LDL Cholesterol Direct HDL Cholesterol Urine WBC (Auto) Vancomycin Trough Coronavirus (PCR) Crossmatch See Detail 08/10/19 08/10/19 08/10/19 05:47 08:00 08:00 WBC 16.9 H RBC 2.94 L Hgb 8.2 L Hct 24.9 L MCV MCH MCHC RDW 17.0 H Plt Count 661 H Lymph % (Auto) Yell % (Auto) Lymph # Yell # Baso # Seg Neutrophils % Seg Neuts % (Manual) Lymphocytes % (Manual) Monocytes % (Manual) Nucleated RBC % Seg Neutrophils # Seg Neutrophils # Man Lymphocytes # (Manual) Monocytes # (Manual) Basophils # (Manual) PT INR D-Dimer ABG pH ABG pO2 ABG HCO3 ABG O2 Saturation ABG Base Excess ABG Hemoglobin Oxyhemoglobin Sodium Potassium Chloride Carbon Dioxide BUN Creatinine 0.3 L Glucose 116 H POC Glucose 148 H Lactic Acid Calcium 7.7 L Magnesium Iron TIBC Ferritin AST ALT Lactate Dehydrogenase Troponin T C-Reactive Protein Total Protein Albumin Prealbumin Cholesterol LDL Cholesterol Direct HDL Cholesterol Urine WBC (Auto) Vancomycin Trough Coronavirus (PCR) Crossmatch 08/10/19 08/10/19 08/10/19 12:38 18:06 23:56 WBC RBC Hgb Hct MCV MCH MCHC RDW Plt Count Lymph % (Auto) Yell % (Auto) Lymph # Yell # Baso # Seg Neutrophils % Seg Neuts % (Manual) Lymphocytes % (Manual) Monocytes % (Manual) Nucleated RBC % Seg Neutrophils # Seg Neutrophils # Man Lymphocytes # (Manual) Monocytes # (Manual) Basophils # (Manual) PT INR D-Dimer ABG pH ABG pO2 ABG HCO3 ABG O2 Saturation ABG Base Excess ABG Hemoglobin Oxyhemoglobin Sodium Potassium Chloride Carbon Dioxide BUN Creatinine Glucose POC Glucose 113 H 126 H 115 H Lactic Acid Calcium Magnesium Iron TIBC Ferritin AST ALT Lactate Dehydrogenase Troponin T C-Reactive Protein Total Protein Albumin Prealbumin Cholesterol LDL Cholesterol Direct HDL Cholesterol Urine WBC (Auto) Vancomycin Trough Coronavirus (PCR) Crossmatch 08/10/19 08/11/19 08/12/19 Unknown 18:10 03:30 WBC 14.4 H RBC 2.58 L Hgb 7.4 L Hct 22.1 L MCV MCH MCHC RDW 17.4 H Plt Count 786 H Lymph % (Auto) Yell % (Auto) Lymph # Yell # Baso # Seg Neutrophils % Seg Neuts % (Manual) Lymphocytes % (Manual) Monocytes % (Manual) Nucleated RBC % Seg Neutrophils # Seg Neutrophils # Man Lymphocytes # (Manual) Monocytes # (Manual) Basophils # (Manual) PT INR D-Dimer ABG pH ABG pO2 ABG HCO3 ABG O2 Saturation ABG Base Excess ABG Hemoglobin Oxyhemoglobin Sodium Potassium Chloride Carbon Dioxide BUN Creatinine Glucose POC Glucose 106 H Lactic Acid Calcium Magnesium Iron TIBC Ferritin AST ALT Lactate Dehydrogenase Troponin T C-Reactive Protein Total Protein Albumin Prealbumin Cholesterol LDL Cholesterol Direct HDL Cholesterol Urine WBC (Auto) Vancomycin Trough Coronavirus (PCR) Positive A Crossmatch 08/12/19 03:30 WBC RBC Hgb Hct MCV MCH MCHC RDW Plt Count Lymph % (Auto) Yell % (Auto) Lymph # Yell # Baso # Seg Neutrophils % Seg Neuts % (Manual) Lymphocytes % (Manual) Monocytes % (Manual) Nucleated RBC % Seg Neutrophils # Seg Neutrophils # Man Lymphocytes # (Manual) Monocytes # (Manual) Basophils # (Manual) PT INR D-Dimer ABG pH ABG pO2 ABG HCO3 ABG O2 Saturation ABG Base Excess ABG Hemoglobin Oxyhemoglobin Sodium Potassium Chloride Carbon Dioxide BUN 7 L Creatinine 0.3 L Glucose 117 H POC Glucose Lactic Acid Calcium 7.8 L Magnesium Iron TIBC Ferritin AST ALT Lactate Dehydrogenase Troponin T C-Reactive Protein Total Protein Albumin Prealbumin Cholesterol LDL Cholesterol Direct HDL Cholesterol Urine WBC (Auto) Vancomycin Trough Coronavirus (PCR) Crossmatch Allied health notes reviewed: RT
[2019-08-12] MEDS: levETIRAcetam 500 MG/5 ML ORAL LIQD FEEDTUBE SCH ×2 (09:57→21:05)
[2019-08-12] MEDS: ASPIRIN 81 MG TAB CHEW PO SCH (09:57)
[2019-08-12] MEDS: DOCUSATE SODIUM 100 MG/10 ML ORAL LIQD PO SCH ×2 (09:57→21:07)
[2019-08-12] MEDS: ENOXAPARIN 40 MG/0.4 ML INJ SUB-Q SCH (09:58)
[2019-08-12] MEDS: FAMOTIDINE 20 MG TAB PO SCH ×2 (09:59→21:06)
[2019-08-12] MEDS: FOLIC ACID 1 MG TAB PO SCH (09:59)
[2019-08-12] MEDS: SODIUM HYPOCHLORITE, DAKIN'S 1/2 STRENGTH (0.25%) 473 ML TOPICAL SOLN TP SCH ×2 (10:02→21:45)
[2019-08-12] MEDS: SCOPOLAMINE TRANSDERMAL PATCH 72 HR TD SCH (10:04)
[2019-08-12] MEDS: fentaNYL 25 MCG/HR PATCH 72HR TD SCH (10:05)
[2019-08-12] MEDS: ACETAMINOPHEN 325 MG/10.15 ML ORAL LIQD UNIT DOSE PO PRN (21:05)
[2019-08-13] MEDS: INSULIN LISPRO 100 UNIT/ML SUB-Q SCH ×4 (00:01→18:00)
[2019-08-13] MEDS: PIPERACIL/TAZOBACTA 4.5/NS 100 4.5 GM/100 ML VIAL IV SCH ×4 (06:06→17:05)
--- NOTE | 2019-08-13 08:17 | Progress Note ---
Assessment and Plan Assessment and plan: --COVid positive pneumonia with severe sepsis Received Plaquenil and cefepime, monitor off antibiotics ID following --Septic shock: On Levophed Persistent hypotension, titrate to systolic blood pressure more than 100 -- Acute respiratory Failure with Hypoxia Due to bilateral PNA with COVID 19 infection. On ventilatory support, unable to wean Pulmonary critical following --COPD with exacerbation Likely due to COVID-19 pneumonia Continue scheduled nebs --Anemia, Microcytic persistent s/p total 3 unit of PRBC, today Hb today 9.1 --Pressure Ulcers: POA buttocks, right lateral foot area wound and supportive care --Hyponatremia, resolved --DM type 2: Accu-Chek SCC tube feeding, insulin as needed --h/o HTN Essential, now hypotensive On Levophed --Seizure D/o/CVA/immobility/BIpolar D/o/SCZ Seizure precautions, antiepileptic medications --Severe PCM, TF supportive care, dietary following patient is DNR- Called and verified information Very poor prognosis, Recommend hospice 07/04: COVID +ve, start on plaquinil, called no answer 07/05: transfuse one unit PRBC, Hb dropped to ~6, called and updated 07/06; H&H stable, serum chemistry improved. On mechanical ventilation with high inflammatory markers. Continue Plaquenil and empiric antibiotics. ID following, prognosis remains guarded and extremely poor. 07/07: On mechanical ventilation with high inflammatory markers. Continue Plaquenil and empiric antibiotics. ID following, prognosis remains guarded and extremely poor. 07/08: Called today and verified the CODE STATUS. Patient remains DNR. He is still intubated, with poor prognosis. Continue to follow inflammatory markers. 07/09 wean off from vent as tolerated, completed empiric antibiotic and Plaquenil 07/10 wean off from vent as tolerated. poor prognosis 07/11 hb 6.7 today, transfuse one PRBC. wean off from vent as tolerated. poor prognosis 07/12 remains critically on vent. Hb 6.9 07/13 Hb dropped to 6.6, transfuse 1 unit of PRBC, remains on vent critically ill Hypotensive, fluid bolus, if no improvement start Levophed 07/14; remains anemic with hemoglobin of 6.8, received total 3 units of PRBC Additional 1 unit of PRBC today, stool for occult blood to rule out GI causes Started back on Levophed due to hypotension 07/15; patient remains critically ill, hypotensive on Levophed 07/16: Today remains intubated on vent, persistent hypotension on Levophed 07/17; clinically no change, pressor dependent[on Levophed] DNR status 07/18: Patient remains hypotensive requiring Levophed, intubated on vent Unable to wean, critically ill. DNR 07/20/2019 Patient remains hypotensive requiring Levophed, intubated on vent. Patient currently with AC mode ventilation, rate 20, tidal volume 500, FiO2 40% and PEEP 6. Patient is a poor prognosis and apparently was on hospice recently. 07/21/2019. Patient with PEG tube that was clogged yesterday. surgery evaluated the patient and noted Very long PEG tubing with thick material inside. The ent celsa tube was stripped and a large amount of formed tube feed was expressed. The tube was then flushed with sprite and flushed easily. Tube clamped. Patient currently with AC mode ventilation, rate 20, tidal volume 500, FiO2 40% and PEEP 6. Patient is a poor prognosis and apparently was on hospice recently. 07/22/2019. Patient currently with AC mode ventilation, rate 20, tidal volume 500, FiO2 30% and PEEP 6. Patient on sedation with fentanyl drip. Continue Levophed to maintain MAP greater than 65. Patient is a poor prognosis and apparently was on hospice recently. 07/23/2019. Patient currently with AC mode ventilation, rate 20, tidal volume 500, FiO2 30% and PEEP 6. Patient on sedation with fentanyl drip. Continue Levophed to maintain MAP greater than 65. Patient is a poor prognosis and apparently was on hospice recently. 07/24/2019 Patient with Covid-19 infection with pneumonia, acute respiratory failure, intubated on ventilator. No more fever. Continue current management. 07/25/2019 Patient with Covid-19 infection with pneumonia, acute respiratory failure, intubated on ventilator. fever is now resolved. Sedated with propofol 07/26/2019 Patient with covid-19 infection. Still intubated, on vent. 07/27/2019 Patient with Covid-19. he is still critically ill. patient has DNR order. 07/28/2019 Patient with Covid-19 infection. Will repeat labs today. Surgeon consulted for tracheostomy. 07/29/2019 Patient with Covid-19. hypokalemia yesterday, replaced. Will recheck labs in am. 07/30/2019 patient with Covid-19 infection with acute respiratory failure. He is intubated on ventilator. has hypokalemia. replace and recheck BMP in am. patient has UTI, started on Cefepime. 07/31/2019. patient with Covid-19 infection with acute respiratory failure. He is intubated on ventilator. Repeat chest x-ray reveals decreased infiltrates. urology consultation and wound care consult per ID. Follow-up urine and blood culture. Tracheostomy per surgery. 08/01/2019. patient with Covid-19 infection with acute respiratory failure. He is intubated on ventilator. Patient currently with PSV trials. Pressure support 18/PEEP 6. FiO2 30%. Tracheostomy to be placed per surgery wound COVID testing negative. 08/02/2019. Patient with COVID-19 infection and acute respiratory failure on mechanical ventilation. Continue with PSVT trials with pressure support increased to 20. Follow-up serial chest x-ray. Continue Fentanyl infusion and wean sedation as tolerated. Continue daily spontaneous breathing trials. 08/03/2019. Patient with COVID-19 infection and acute respiratory failure on mechanical ventilation. Continue with PSV trials with pressure support increased to 20. Follow-up serial chest x-ray. Continue Fentanyl infusion and wean sedation as tolerated. Continue daily spontaneous breathing trials. 08/04/2019. Patient with COVID-19 infection and acute respiratory failure on mechanical ventilation. Continue with PSV trials 14/6, FiO2 30%. Continue Fentanyl infusion and wean sedation as tolerated. Continue daily spontaneous breathing trials. Tracheostomy placement to be scheduled when COVID testing is negative per surgery. Monitor off antibiotics per ID recommendations 08/05/2019. Patient with COVID-19 infection and acute respiratory failure on mechanical ventilation. Patient currently on AC mode, rate 14, tidal volume 500, FiO2 30% and PEEP of 6. Continue PSV trials as tolerated. Tracheostomy placement to be scheduled when COVID testing is negative per surgery. Monitor off antibiotics per ID recommendations. 08/06/2019. Patient with COVID-19 infection and acute respiratory failure on mechanical ventilation. Patient currently on AC mode, rate 14, tidal volume 500, FiO2 30% and PEEP of 6. Continue PSV trials as tolerated. Tracheostomy placement to be scheduled when COVID testing is negative per surgery. ID restarted antibiotics with cefepime 2 g IV every 8 hours to cover for presumed Pseudomonas pneumonia. Follow-up chest x-ray and blood cultures. Repeat COVID testing 07/28 and positive. Repeat test tomorrow. 08/07/19 Patient with Covid-19, acute respiratory failure. He is still intubated on mechanical ventilator. For tracheostomy when Covid-19 test negative. Still having fever. Leukocytosis worse today, WBC 30.3. For CT Chest, Abdomen. 08/08/19 patient with Covid-19, acute respiratory failure. He is still critically ill, intubated. He is for tracheostomy after Covid-19 test negative. Fever improving. Temp 99.[address] Chest and Abdomen done yesterday pending. 08/09/2019 patient with Covid-19 infection, acute resp failure. Still intubated on ventilator. Fever of 100.3 this morning. I discussed with his Nurse 08/10/2019 Patient with Covid-19 infection. acute respirator failure. patient still in critical condition, intubated. 08/11/2019 Patient with Covid-19 infection, acute resp failure. He is still intubated on vent. 08/12/2019 Patient with Covid-19 infection, acute resp failure. He is still intubated on vent. Discussed with yesterday and gave update. Covid-19 test done 08/09 still positive. 08/13/2019 Patient with Covid-19 infection, acute resp failure. He is still intubated on vent. Discussed with 08/10 and gave update. Covid-19 test done 08/09 still positive. Fever of 101.8 last night The high probability of a clinically significant, sudden or life threatening deterioration of the [respiratory, CVS, IMAGER] system(s) required my full and direct attention, intervention and personal management. The aggregate critical care time was [34] minutes. This time is in addition to time spent performing reported procedures but includes the following: [x] Data Review and interpretation [x] Patient assessment and monitoring of vital signs [x] Documentation [x] Medication orders and management History Interval history: Patient with Covid-19 infection Still intubated Fever of 101.8 last night Hospitalist Physical - Physical exam Narrative exam: GEN: Not in acute distress, intubated HEENT: Normocephalic, atraumatic, Neck: supple, No JVD Lungs: Bilateral crackles, heart;S1 and S2 reg, no murmurs, rubs or gallop Abd:soft, non tender, non distended, normal bowel sounds,PEG tube Ext: No edema, no clubbing, no cyanosis, Neuro: Intubated, on ventilator,sedated - Constitutional Vitals: Temp Pulse Resp BP Pulse Ox 99.8 F H 89 18 182/105 99 08/13/19 03:26 08/13/19 06:00 08/13/19 06:00 08/13/19 06:00 08/13/19 06:00 General appearance: Present: other (Orally intubated on vent) HEART Score - HEART Score Troponin: Troponin T 0.013 ng/mL (0.00-0.029) 07/04/19 07:05 Results - Labs CBC & Chem 7: 08/12/19 03:30 08/12/19 03:30 Labs: Laboratory Last Values WBC 14.4 K/mm3 (4.5-11.0) H 08/12/19 03:30 RBC 2.58 M/mm3 (3.65-5.03) L 08/12/19 03:30 Hgb 7.4 gm/dl (11.8-15.2) L 08/12/19 03:30 Hct 22.1 % (35.5-45.6) L 08/12/19 03:30 MCV 86 fl (84-94) 08/12/19 03:30 MCH 29 pg (28-32) 08/12/19 03:30 MCHC 34 % (32-34) 08/12/19 03:30 RDW 17.4 % (13.2-15.2) H 08/12/19 03:30 Plt Count 786 K/mm3 (140-440) H 08/12/19 03:30 Lymph % (Auto) 4.9 % (13.4-35.0) L 07/19/19 08:45 [place] % (Auto) 12.2 % (0.0-7.3) H 07/22/19 05:38 Eos % (Auto) 1.0 % (0.0-4.3) 07/19/19 08:45 Baso % (Auto) 0.5 % (0.0-1.8) 07/19/19 08:45 Lymph # 0.8 K/mm3 (1.2-5.4) L 07/19/19 08:45 [place] # 1.5 K/mm3 (0.0-0.8) H 07/22/19 05:38 Eos # 0.2 K/mm3 (0.0-0.4) 07/19/19 08:45 Baso # 0.1 K/mm3 (0.0-0.1) 07/19/19 08:45 Add Manual Diff Complete 08/08/19 04:41 Total Counted 100 08/08/19 04:41 Seg Neutrophils % 72.8 % (40.0-70.0) H 07/22/19 05:38 Seg Neuts % (Manual) 90.0 % (40.0-70.0) H 08/08/19 04:41 Band Neutrophils % 0 % 08/08/19 04:41 Lymphocytes % (Manual) 3.0 % (13.4-35.0) L 08/08/19 04:41 Reactive Lymphs % (Man) 0 % 08/08/19 04:41 Monocytes % (Manual) 6.0 % (0.0-7.3) 08/08/19 04:41 Eosinophils % (Manual) 1.0 % (0.0-4.3) 08/08/19 04:41 Basophils % (Manual) 0 % (0.0-1.8) 08/08/19 04:41 Metamyelocytes % 0 % 08/08/19 04:41 Myelocytes % 0 % 08/08/19 04:41 Promyelocytes % 0 % 08/08/19 04:41 Blast Cells % 0 % 08/08/19 04:41 Nucleated RBC % Not Reportable 08/08/19 04:41 Seg Neutrophils # 9.2 K/mm3 (1.8-7.7) H 07/22/19 05:38 Seg Neutrophils # Man 19.9 K/mm3 (1.8-7.7) H 08/08/19 04:41 Band Neutrophils # 0.0 K/mm3 08/08/19 04:41 Lymphocytes # (Manual) 0.7 K/mm3 (1.2-5.4) L 08/08/19 04:41 Abs React Lymphs (Man) 0.0 K/mm3 08/08/19 04:41 Monocytes # (Manual) 1.3 K/mm3 (0.0-0.8) H 08/08/19 04:41 Eosinophils # (Manual) 0.2 K/mm3 (0.0-0.4) 08/08/19 04:41 Basophils # (Manual) 0.0 K/mm3 (0.0-0.1) 08/08/19 04:41 Metamyelocytes # 0.0 K/mm3 08/08/19 04:41 Myelocytes # 0.0 K/mm3 08/08/19 04:41 Promyelocytes # 0.0 K/mm3 08/08/19 04:41 Blast Cells # 0.0 K/mm3 08/08/19 04:41 WBC Morphology Not Reportable 08/08/19 04:41 Hypersegmented Neuts Not Reportable 08/08/19 04:41 Hyposegmented Neuts Not Reportable 08/08/19 04:41 Hypogranular Neuts Not Reportable 08/08/19 04:41 Smudge Cells Not Reportable 08/08/19 04:41 Toxic Granulation Not Reportable 08/08/19 04:41 Toxic Vacuolation Not Reportable 08/08/19 04:41 Dohle Bodies Not Reportable 08/08/19 04:41 Pelger-Huet Anomaly Not Reportable 08/08/19 04:41 Mendy Rods Not Reportable 08/08/19 04:41 Platelet Estimate Consistent w auto 08/08/19 04:41 Clumped Platelets Not Reportable 08/08/19 04:41 Plt Clumps, EDTA Not Reportable 08/08/19 04:41 Large Platelets Not Reportable 08/08/19 04:41 Giant Platelets Not Reportable 08/08/19 04:41 Platelet Satelliting Not Reportable 08/08/19 04:41 Plt Morphology Comment Not Reportable 08/08/19 04:41 RBC Morphology Not Reportable 08/08/19 04:41 Dimorphic RBCs Not Reportable 08/08/19 04:41 Polychromasia Not Reportable 08/08/19 04:41 Hypochromasia Few 08/08/19 04:41 Poikilocytosis Not Reportable 08/08/19 04:41 Anisocytosis Rare 08/08/19 04:41 Microcytosis Rare 08/08/19 04:41 Macrocytosis Not Reportable 08/08/19 04:41 Spherocytes Not Reportable 08/08/19 04:41 Pappenheimer Bodies Not Reportable 08/08/19 04:41 Sickle Cells Not Reportable 08/08/19 04:41 Target Cells Not Reportable 08/08/19 04:41 Tear Drop Cells Not Reportable 08/08/19 04:41 Ovalocytes Rare 08/08/19 04:41 Stomatocytes Few 08/01/19 04:57 Helmet Cells Not Reportable 08/08/19 04:[address] Bodies Not Reportable 08/08/19 04:41 Edna Rings Not Reportable 08/08/19 04:41 Lincoln Cells Not Reportable 08/08/19 04:41 Bite Cells Not Reportable 08/08/19 04:41 Crenated Cell Not Reportable 08/08/19 04:41 Elliptocytes Not Reportable 08/08/19 04:41 Acanthocytes (Spur) Not Reportable 08/08/19 04:41 Rouleaux Not Reportable 08/08/19 04:41 Hemoglobin C Crystals Not Reportable 08/08/19 04:41 Schistocytes Rare 08/08/19 04:41 Malaria parasites Not Reportable 08/08/19 04:41 Jeevan Bodies Not Reportable 08/08/19 04:41 Hem Pathologist Commnt No 08/08/19 04:41 PT 16.0 Sec. (12.2-14.9) H 07/03/19 22:20 INR 1.26 (0.87-1.13) H 07/03/19 22:20 D-Dimer 1808.06 ng/mlDDU (0-234) H 08/07/19 10:24 ABG pH 7.445 pH Units (7.350-7.450) 08/07/19 11:10 ABG pCO2 50.5 mm Hg 08/07/19 11:10 ABG pO2 73.3 mm Hg (80.0-90.0) L 08/07/19 11:10 ABG HCO3 33.9 mmol/L (20.0-26.0) H 08/07/19 11:10 ABG O2 Saturation 96.5 % (95.0-99.0) 08/07/19 11:10 ABG O2 Content 8.5 (0.0-44) 08/07/19 11:10 ABG Base Excess 9.0 mmol/L (-2.0-3.0) H 08/07/19 11:10 ABG Hemoglobin 6.3 gm/dl (14.0-18.0) L 08/07/19 11:10 ABG Carboxyhemoglobin 1.9 % (0.0-5.0) 08/07/19 11:10 ABG Methemoglobin 0.4 % (0.0-1.5) 08/07/19 11:10 Oxyhemoglobin 94.3 % (95.0-99.0) L 08/07/19 11:10 FiO2 30 % 08/07/19 11:10 Sodium 138 mmol/L (137-145) 08/12/19 03:30 Potassium 3.7 mmol/L (3.6-5.0) 08/12/19 03:30 Chloride 101.6 mmol/L (98-107) 08/12/19 03:30 Carbon Dioxide 29 mmol/L (22-30) 08/12/19 03:30 Anion Gap 11 mmol/L 08/12/19 03:30 BUN 7 mg/dL (9-20) L 08/12/19 03:30 Creatinine 0.3 mg/dL (0.8-1.5) L 08/12/19 03:30 Estimated GFR > 60 ml/min 08/12/19 03:30 BUN/Creatinine Ratio 23 % 08/12/19 03:30 Glucose 117 mg/dL (75-100) H 08/12/19 03:30 POC Glucose 126 (70-105) H 08/13/19 05:25 Osmolality 268 Mosm/kg 07/05/19 04:00 Lactic Acid 3.30 mmol/L (0.7-2.0) H* 07/04/19 07:05 Uric Acid 7.2 mg/dL (3.5-7.6) 07/05/19 04:00 Calcium 7.8 mg/dL (8.4-10.2) L 08/12/19 03:30 Phosphorus 3.60 mg/dL (2.5-4.5) 07/05/19 04:00 Magnesium 1.80 mg/dL (1.7-2.3) 07/11/19 05:14 Iron 9 ug/dL (49-181) L 07/04/19 07:05 TIBC 97 mcg/dL (250-450) L 07/04/19 07:05 Ferritin 360.4 ng/mL (13.0-400.0) 08/07/19 10:24 Total Bilirubin 0.20 mg/dL (0.1-1.2) 07/04/19 07:05 AST 73 units/L (5-40) H 07/04/19 07:05 ALT 91 units/L (7-56) H 07/04/19 07:05 Alkaline Phosphatase 114 units/L (35-129) 07/04/19 07:05 Ammonia 35.0 umol/L (25-60) 07/03/19 23:58 Lactate Dehydrogenase 144 units/L (91-180) 08/07/19 10:24 Troponin T 0.013 ng/mL (0.00-0.029) 07/04/19 07:05 C-Reactive Protein 11.10 mg/dL (0.00-1.30) H 08/07/19 10:24 Total Protein 5.5 g/dL (6.3-8.2) L 07/04/19 07:05 Albumin 1.6 g/dL (3.9-5) L 07/31/19 04:42 Albumin/Globulin Ratio 0.6 % 07/04/19 07:05 Prealbumin 0.037 g/L (0.200-0.400) L 07/31/19 04:42 Triglycerides 33 mg/dL (2-149) 07/03/19 19:57 Cholesterol 47 mg/dL (50-199) L 07/03/19 19:57 LDL Cholesterol Direct 25 mg/dL (50-130) L 07/03/19 19:57 HDL Cholesterol 20 mg/dL (40-59) L 07/03/19 19:57 Cholesterol/HDL Ratio 2.35 % 07/03/19 19:57 Procalcitonin 0.96 ng/mL (<0.15) 08/07/19 10:24 TSH 2.170 mlU/mL (0.270-4.200) 07/03/19 22:20 Total Cortisol 28.0 mcg/dL () 07/05/19 10:11 Urine Color Yellow (Yellow) 07/29/19 11:57 Urine Turbidity Clear (Clear) 07/29/19 11:57 Urine pH 7.0 (5.0-7.0) 07/29/19 11:57 Ur Specific [place] 1.012 (1.003-1.030) 07/29/19 11:57 Urine Protein <15 mg/dl mg/dL (Negative) 07/29/19 11:57 Urine Glucose (UA) Neg mg/dL (Negative) 07/29/19 11:57 Urine Ketones Neg mg/dL (Negative) 07/29/19 11:57 Urine Blood Sm (Negative) 07/29/19 11:57 Urine Nitrite Neg (Negative) 07/29/19 11:57 Urine Bilirubin Neg (Negative) 07/29/19 11:57 Urine Urobilinogen 4.0 mg/dL (<2.0) 07/29/19 11:57 Ur Leukocyte Esterase Mod (Negative) 07/29/19 11:57 Urine WBC (Auto) 63.0 /HPF (0.0-6.0) H 07/29/19 11:57 Urine RBC (Auto) 14.0 /HPF (0.0-6.0) 07/29/19 11:57 U Epithel Cells (Auto) < 1.0 /HPF (0-13.0) 07/29/19 11:57 Urine Bacteria (Auto) 1+ /HPF (Negative) 07/29/19 11:57 Urine WBC Clumps Few /HPF 07/03/19 21:13 Urine Mucus Few /HPF 07/03/19 21:13 Urine Osmolality 293 Mosm/kg 07/05/19 08:15 Vancomycin Trough 23.2 ug/mL (5.0-20.0) H 07/05/19 17:54 Urine Opiates Screen Presumptive negative 07/03/19 21:13 Urine Methadone Screen Presumptive negative 07/03/19 21:13 Ur Barbiturates Screen Presumptive negative 07/03/19 21:13 Ur Phencyclidine Scrn Presumptive negative 07/03/19 21:13 Ur Amphetamines Screen Presumptive negative 07/03/19 21:13 U Benzodiazepines Scrn Presumptive negative 07/03/19 21:13 Urine Cocaine Screen Presumptive negative 07/03/19 21:13 U Marijuana (THC) Screen Presumptive negative 07/03/19 21:13 Drugs of Abuse Note Disclamer 07/03/19 21:13 Plasma/Serum Alcohol < 0.01 % (0-0.07) 07/03/19 23:58 Coronavirus (PCR) Positive (Negative) A 08/10/19 Unknown Hepatitis A IgM Ab Non-reactive (NonReactive) 08/07/19 10:24 Hep Bs Antigen Non-reactive (Negative) 08/07/19 10:24 Hep B Core IgM Ab Non-reactive (NonReactive) 08/07/19 10:24 Hepatitis C Antibody Non-reactive (NonReactive) 08/07/19 10:24 Blood Type B POSITIVE 08/09/19 17:59 Antibody Screen Negative 08/09/19 17:59 Crossmatch See Detail 08/09/19 17:59 Microbiology: Microbiology 08/09/19 14:30 Wound - Deep Wound Culture - Final Enterobacter Cloacae Wright/IV: Voiding Method Indwelling Catheter IV Catheter Type [Left Triple Lumen Cath Internal Jugular] IV Catheter Type [Left INT / Saline Lock Antecubital] IV Catheter Type [Left Forearm Peripheral IV ] IV Catheter Type [Left Upper Mid-line arm] IV Catheter Type [Right INT / Saline Lock Forearm] IV Catheter Type [Right Hand] INT / Saline Lock IV Catheter Type [Right CVL Femoral] IV Catheter Type [Left INT / Saline Lock External Jugular] Active Medications - Current Medications Current Medications: Generic Name Dose Route Start Last Admin Trade Name Freq PRN Reason Stop Dose Admin Acetaminophen 650 mg 07/04/19 04:24 08/05/19 17:40 Tylenol [place] 650 mg Q6H PRN Administration Pain MILD(1-3)/Fever >100.5/MURO Acetaminophen 650 mg 07/10/19 04:00 08/12/19 21:05 Tylenol PO 650 mg Q6HR PRN Administration Pain, Mild (1-3) FEVER Lipase/Protease/Amylase 1 each 07/04/19 10:04 08/11/19 06:03 Pancrewhitley Gilbert 10,500 Unit FEEDTUBE 1 each PRN PRN Administration For Clogged Feeding Tube Aspirin 81 mg 07/05/19 10:00 08/12/19 09:57 Baby Aspirin PO 81 mg QDAY TAMMIE Administration Dextrose 50 ml 07/04/19 06:54 D50w (25gm) Syringe IV Q30MIN PRN Hypoglycemia Protocol Docusate Sodium 100 mg 07/10/19 10:00 08/12/19 21:07 Colace PO Not Given BID TAMMIE Enoxaparin Sodium 40 mg 07/24/19 10:00 08/12/19 09:58 Enoxaparin SUB-Q 40 mg QDAY@1000 TAMMIE Administration Famotidine 20 mg 07/23/19 22:00 08/12/19 21:06 Pepcid PO 20 mg BID TAMMIE Administration Fentanyl 50 mcg 07/21/19 15:18 08/09/19 17:44 Sublimaze IV 50 mcg Q10MIN PRN Administration ANALGESIA Fentanyl 25 mcg 08/03/19 11:00 08/12/19 10:05 Duragesic TD 25 mcg Q3D TAMMIE Administration Folic Acid 1 mg 07/05/19 10:00 08/12/19 09:59 Folvite PO 1 mg QDAY TAMMIE Administration Hydrophilic Ointment 1 applic 07/03/19 19:56 07/05/19 17:42 Vaseline Lip Therapy TP 1 applic Q2HR PRN Administration Dry Lips Norepinephrine 4 mg in 250 mls @ 7.5 mls/hr 07/03/19 23:00 07/20/19 01:00 Levophed Drip 4 Mg/Ns 250 Ml IV Infused TITR TAMMIE Titration Protocol 2 MCG/MIN Piperacillin Sod/Tazobactam Sod 4.5 gm in 100 mls @ 200 mls/hr 08/06/19 12:00 08/13/19 06:06 Zosyn/Ns 4.5gm/100ml IV 200 mls/hr Q6HR TAMMIE Administration Protocol Sodium Chloride 500 mls @ 0 mls/hr 08/09/19 17:07 Nacl 0.9% 500 Ml IV ONCE TAMMIE As Directed Sodium Chloride 500 mls @ 0 mls/hr 08/09/19 18:56 Nacl 0.9% 500 Ml IV ONCE TAMMIE As Directed Insulin Human Lispro 0 unit 07/07/19 12:00 08/13/19 06:05 Humalog SUB-Q Not Given Q6HR TAMMIE Protocol Levetiracetam 750 mg 07/06/19 11:00 08/12/19 21:05 Keppra FEEDTUBE 750 mg Q12HR TAMMIE Administration Metoprolol Tartrate 5 mg 07/12/19 15:08 08/11/19 14:47 Metoprolol IV 5 mg Q6HR PRN Administration Tachyarrhythmias Multi-Ingred Cream/Lotion/Oil/Oint 1 applic 07/03/19 19:56 07/05/19 13:19 Artificial Tears Ophth Oint OU 1 applic Q4HR PRN Administration Dry Eye(s) Naloxone HCl 0.1 mg 07/04/19 04:24 Naloxone IV Q2MIN PRN Res Rate </= 8 or 02 SAT < 92% Oxycodone/Acetaminophen 1 tab 07/19/19 14:17 08/11/19 13:06 Percocet 5/325 PO 1 tab Q4H PRN Administration Pain, Moderate (4-6) Scopolamine 1 each 07/10/19 11:00 08/12/19 10:04 Transderm-Scop TD 1 each Q3D TAMMIE Administration Simple Syrup 15 ml 07/04/19 10:04 07/10/19 21:56 Simple Syrup FEEDTUBE 15 ml PRN PRN Administration Hypoglycemia Simple Syrup 30 ml 07/04/19 10:04 Simple Syrup FEEDTUBE PRN PRN Hypoglycemia Sodium Bicarbonate 325 mg 07/04/19 10:04 07/20/19 10:20 Sodium Bicarbonate FEEDTUBE 325 mg PRN PRN Administration For Clogged Feeding Tube Sodium Chloride 10 ml 07/04/19 10:00 08/12/19 21:06 Sodium Chloride Flush Syringe 10 Ml IV 10 ml BID TAMMIE Administration Sodium Chloride 10 ml 07/04/19 04:24 Sodium Chloride Flush Syringe 10 Ml IV PRN PRN LINE FLUSH Sodium Hypochlorite 1 applic 07/10/19 14:00 08/12/19 21:45 Dakin's Half Strength TP 1 appful BID TAMMIE Administration Nutrition/Malnutrition Assess - Dietary Evaluation Nutrition/Malnutrition Findings: Nutrition Notes Start: 07/04/19 09:17 Freq: Status: Active Protocol: Document 08/10/19 08:21 LP (Rec: 08/10/19 08:25 LP [id number]) Nutrition Notes Initial or Follow up Reassessment Current Diagnosis Acute Kidney Injury,COPD, Decubitus(Pressure Ulcer), Diabetes,Hypertension Other Pertinent Diagnosis COVID-19 (+), pneu, seizures, schizophrenia, Buttock and R foot PU, Current Diet Osmolite 1.5 at 55ml/hr Labs/Tests Reviewed Pertinent Medications Reviewed Height 5 ft 11 in Weight 92 kg [place] Body Weight (kg) 78.18 BMI 28.3 Weight Status Overweight Subjective/Other Information Pt tolerating TF at goal rate. Pt waiting to get trach and PEG placed. Percent of energy/protein needs met: 97%/75% Burn Absent Trauma Absent Current % PO Negligible Minimum of two criteria No physical signs of malnutrition #2 Nutrition Diagnosis Increased nutrient needs ( specify in comment below) Diagnosis Progress(for reassessment Continues documentation) #1 Nutrition Diagnosis Inadequate oral intake Diagnosis Progress(for reassessment Continues documentation) Is patient on ventilator? Yes Is Patient Ambulatory and/or Out of Bed No REE-([facility]-confined to bed) 2047.172 Calculation Used for Recommendations [facility] Additional Notes Protein: 110-184 (1.2-2g/kg) Fluid: 1 ml/kcal or per MD Nutrition Intervention Change Diet Order: Continue TF Nutrition Support: Osmolite 1.5 at 55ml/hr Flush 50ml q4h for hyponatremia Flush 150 once resolved Kcal 1,980 Protein (gm) 83 Fluid (mL) 1,006 Goal #1 TF tolerance Goal #2 TF to meet at least 75% of energy and protein needs Anticipated Discharge Needs: unable to determine at this time Follow-Up By: 08/15/19 Additional Comments Follow for TF
[2019-08-13] MEDS: ASPIRIN 81 MG TAB CHEW PO SCH (09:19)
[2019-08-13] MEDS: FOLIC ACID 1 MG TAB PO SCH (09:19)
[2019-08-13] MEDS: levETIRAcetam 500 MG/5 ML ORAL LIQD FEEDTUBE SCH ×2 (09:19→22:15)
[2019-08-13] MEDS: ENOXAPARIN 40 MG/0.4 ML INJ SUB-Q SCH (09:19)
[2019-08-13] MEDS: SODIUM HYPOCHLORITE, DAKIN'S 1/2 STRENGTH (0.25%) 473 ML TOPICAL SOLN TP SCH ×2 (09:20→22:23)
[2019-08-13] MEDS: FAMOTIDINE 20 MG TAB PO SCH ×2 (09:20→22:15)
[2019-08-13] MEDS: DOCUSATE SODIUM 100 MG/10 ML ORAL LIQD PO SCH ×2 (09:21→22:17)
--- NOTE | 2019-08-13 13:15 | Progress Note ---
Assessment and Plan Acute hypoxemic respiratory failure on MVS Severe sepsis with Shock. Bilateral Pneumonia. PUI coronavirus-19 infection. Acute possibly on chronic encephalopathy. Oropharyngeal dysphagia. Anemia. Decubitus ulcers Diabetes type 2. Hypertension. Leukocytosis. Anemia that is microcytic. Elevated serum transaminases. [id number] metabolic acidosis. Lactic acidosis. Severe protein-calorie malnutrition ( has advised us she wants a tracheostomy and continued aggressive care) - reduced Psupp to 10 - get ABG after 2 hours - H&H post transfusion with appropriate rise - no new issues otherwise, continue care as below - follow repeat COVID-19 - surgery evaluation ongoing for tracheostomy placement (await negative COVID test) - continue care as below otherwise - continue fentanyl gtt for pain control / sedation - continue to wean supplemental oxygen for target O2 sat's > 90% acutely - continue daily SAT's and SBT assessment as tolerated - VAP bundle addressed - continue lung protective strategies - continue bronchodilators with pulmonary hygiene per RT - wean per pulmonary driven protocols otherwise - prn Levophed for target MAP > 65 mmHg - continue airborne and contact COVID-19 precautions - COVID-19 test positive - complete anti-infectives and de-escalate per ID recommendations - continue wound care per WCT - sedation prn for target RASS 0 to -1 - accuchecks with glycemic control per SSI (While critically ill target blood glucose of 140-180 mg/dL; avoid hypoglycemia) - to avoid benzodiazepine's, reduce the possibility of delirium - prn analgesia per CPOT score - Maintenance of sleep-wake cycle, avoid delirium - continue enteral nutritional support at goal rate as tolerated - G.I. & VTE prophylaxis - PT/OT/ROM exercises - continue mobility protocols for pressure ulcer prophylaxis - Monitor hemodynamics closely - continue other care per attending / other consultants - discharge planning ongoing concurrently .... Re-evaluate in am & prn CONDITION: CRITICAL PROGNOSIS: GUARDED CODE STATUS: FULL CODE The high probability of a clinically significant, sudden or life-threatening deterioration of the [respiratory & cardiovascular] system(s) required my full and direct attention, intervention and personal management. The aggregate critical care time was [32] minutes without overlap. Time includes spent on; [x] Data Review and interpretation [x] Patient assessment and monitoring of vital signs [x] Documentation [x] Medication orders and management Subjective Date of service: 08/13/19 Principal diagnosis: Bilateral pneumonia, severe sepsis with septic shock, encephalopathy Interval history: Patient is seen today for: Ac hypoxemic Resp failure on MVS; Severe sepsis with Shock; Ivan. Pneumonia; PUI coronavirus-19 infection. Seen and examined at bedside; 24hour events reviewed; nursing and respiratory care staff consulted; no adverse overnight events reported to me; resting in bed; remains on MVS; on PSV 02/23 and tolerating well today; AMS is persistent; no new issues otherwise Objective Vital Signs - 12hr 08/13/19 08/13/19 08/13/19 02:00 03:00 03:26 Temperature 99.8 F H Pulse Rate 90 79 Pulse Rate [ From Monitor] Respiratory 22 16 Rate Blood Pressure 122/69 148/79 O2 Sat by Pulse 97 95 Oximetry 08/13/19 08/13/19 08/13/19 04:00 04:17 05:00 Temperature Pulse Rate 105 H 90 82 Pulse Rate [ 105 H From Monitor] Respiratory 24 24 Rate Blood Pressure 156/90 145/82 157/91 O2 Sat by Pulse 100 100 100 Oximetry 08/13/19 08/13/19 08/13/19 06:00 07:00 08:00 Temperature 98.4 F Pulse Rate 89 88 88 Pulse Rate [ 88 From Monitor] Respiratory 18 18 26 H Rate Blood Pressure 182/105 122/51 112/59 O2 Sat by Pulse 99 97 95 Oximetry 08/13/19 08/13/19 08/13/19 08:01 09:00 10:00 Temperature Pulse Rate 88 106 H 81 Pulse Rate [ From Monitor] Respiratory 26 H 34 H 17 Rate Blood Pressure 98/45 112/59 143/62 O2 Sat by Pulse 95 100 98 Oximetry 08/13/19 08/13/19 08/13/19 11:00 12:00 12:13 Temperature 97.4 F L Pulse Rate 110 H 88 94 H Pulse Rate [ From Monitor] Respiratory 19 15 20 Rate Blood Pressure 135/68 173/97 185/107 O2 Sat by Pulse 100 99 100 Oximetry 08/13/19 13:00 Temperature Pulse Rate 83 Pulse Rate [ From Monitor] Respiratory 15 Rate Blood Pressure 169/83 O2 Sat by Pulse 99 Oximetry Constitutional: appears uncomfortable, other (eelderly and chronically ill looking AAM, normocep[krystina;ic with mildly increased respiratory effort at rest) Eyes: non-icteric ENT: oropharynx moist, other (ETT 24 cm Pawan) Neck: supple, no lymphadenopathy, no JVD Effort: very labored Ascultation: Bilateral: diminished breath sounds, rhonchi Percussion: Bilateral: not dull Cardiovascular: regular rate and rhythm Gastrointestinal: normoactive bowel sounds, soft, non-tender, non-distended, other (+ PEG tube with mild TF leakage) Integumentary: decubitus ulcer (sacral) Extremities: no cyanosis, no edema, pink and warm, pulses normal Neurologic: pupils equal and round, unable to assess Psychiatric: other (Unable to assess re: AMS) CBC and BMP: 08/14/19 05:00 08/14/19 05:00 ABG, PT/INR, D-dimer: ABG ABG pH 7.445 pH Units (7.350-7.450) 08/07/19 11:10 ABG pCO2 50.5 mm Hg 08/07/19 11:10 ABG pO2 73.3 mm Hg (80.0-90.0) L 08/07/19 11:10 ABG O2 Saturation 96.5 % (95.0-99.0) 08/07/19 11:10 PT/INR, D-dimer PT 16.0 Sec. (12.2-14.9) H 07/03/19 22:20 INR 1.26 (0.87-1.13) H 07/03/19 22:20 D-Dimer 1808.06 ng/mlDDU (0-234) H 08/07/19 10:24 Abnormal lab findings: Abnormal Labs 07/03/19 07/03/19 07/03/19 19:57 21:10 21:13 WBC RBC Hgb Hct MCV MCH MCHC RDW Plt Count Lymph % (Auto) [place] % (Auto) Lymph # [place] # Baso # Seg Neutrophils % Seg Neuts % (Manual) Lymphocytes % (Manual) Monocytes % (Manual) Nucleated RBC % Seg Neutrophils # Seg Neutrophils # Man Lymphocytes # (Manual) Monocytes # (Manual) Basophils # (Manual) PT INR D-Dimer ABG pH 7.238 L ABG pO2 210.8 H ABG HCO3 15.4 L ABG O2 Saturation 99.2 H ABG Base Excess -11.1 L ABG Hemoglobin 8.0 L Oxyhemoglobin Sodium 124 L Potassium Chloride 92.9 L Carbon Dioxide 10 L BUN 23 H Creatinine 0.5 L Glucose 118 H POC Glucose Lactic Acid Calcium 7.0 L Magnesium Iron TIBC Ferritin AST 70 H ALT 88 H Lactate Dehydrogenase Troponin T 0.032 H C-Reactive Protein Total Protein 5.0 L Albumin 1.8 L Prealbumin Cholesterol 47 L LDL Cholesterol Direct 25 L HDL Cholesterol 20 L Urine WBC (Auto) 12.0 H Vancomycin Trough Coronavirus (PCR) Crossmatch 07/03/19 07/03/19 07/03/19 22:20 22:20 22:20 WBC 30.5 H RBC 2.96 L Hgb 7.7 L Hct 23.9 L MCV 81 L MCH 26 L MCHC RDW 18.6 H Plt Count 459 H Lymph % (Auto) [place] % (Auto) Lymph # [place] # Baso # Seg Neutrophils % Seg Neuts % (Manual) 93.0 H Lymphocytes % (Manual) 0.5 L Monocytes % (Manual) Nucleated RBC % Seg Neutrophils # Seg Neutrophils # Man 28.4 H Lymphocytes # (Manual) 0.2 L Monocytes # (Manual) Basophils # (Manual) PT 16.0 H INR 1.26 H D-Dimer ABG pH ABG pO2 ABG HCO3 ABG O2 Saturation ABG Base Excess ABG Hemoglobin Oxyhemoglobin Sodium Potassium Chloride Carbon Dioxide BUN Creatinine Glucose POC Glucose Lactic Acid 6.90 H* Calcium Magnesium Iron TIBC Ferritin AST ALT Lactate Dehydrogenase Troponin T C-Reactive Protein Total Protein Albumin Prealbumin Cholesterol LDL Cholesterol Direct HDL Cholesterol Urine WBC (Auto) Vancomycin Trough Coronavirus (PCR) Crossmatch 07/03/19 07/04/19 07/04/19 23:58 05:15 07:05 WBC 17.1 H RBC 3.22 L Hgb 8.3 L Hct 25.4 L MCV 79 L MCH 26 L MCHC RDW 18.6 H Plt Count Lymph % (Auto) [place] % (Auto) Lymph # [place] # Baso # Seg Neutrophils % Seg Neuts % (Manual) 74.0 H Lymphocytes % (Manual) 0 L Monocytes % (Manual) Nucleated RBC % Seg Neutrophils # Seg Neutrophils # Man 12.7 H Lymphocytes # (Manual) 0.0 L Monocytes # (Manual) Basophils # (Manual) PT INR D-Dimer ABG pH 7.310 L ABG pO2 73.2 L ABG HCO3 17.8 L ABG O2 Saturation 93.8 L ABG Base Excess -7.7 L ABG Hemoglobin 9.6 L Oxyhemoglobin 92.3 L Sodium Potassium Chloride Carbon Dioxide BUN Creatinine Glucose POC Glucose Lactic Acid 7.10 H* Calcium Magnesium Iron TIBC Ferritin AST ALT Lactate Dehydrogenase Troponin T C-Reactive Protein Total Protein Albumin Prealbumin Cholesterol LDL Cholesterol Direct HDL Cholesterol Urine WBC (Auto) Vancomycin Trough Coronavirus (PCR) Crossmatch 07/04/19 07/04/19 07/04/19 07:05 07:05 07:05 WBC RBC Hgb Hct MCV MCH MCHC RDW Plt Count Lymph % (Auto) [place] % (Auto) Lymph # [place] # Baso # Seg Neutrophils % Seg Neuts % (Manual) Lymphocytes % (Manual) Monocytes % (Manual) Nucleated RBC % Seg Neutrophils # Seg Neutrophils # Man Lymphocytes # (Manual) Monocytes # (Manual) Basophils # (Manual) PT INR D-Dimer ABG pH ABG pO2 ABG HCO3 ABG O2 Saturation ABG Base Excess ABG Hemoglobin Oxyhemoglobin Sodium 120 L Potassium 5.1 H Chloride 90.0 L Carbon Dioxide 14 L BUN 26 H Creatinine 0.5 L Glucose POC Glucose Lactic Acid 3.30 H* Calcium 8.0 L Magnesium Iron 9 L TIBC 97 L Ferritin AST 73 H ALT 91 H Lactate Dehydrogenase Troponin T C-Reactive Protein Total Protein 5.5 L Albumin 2.0 L Prealbumin Cholesterol LDL Cholesterol Direct HDL Cholesterol Urine WBC (Auto) Vancomycin Trough Coronavirus (PCR) Crossmatch 07/04/19 07/04/19 07/04/19 09:39 09:39 09:39 WBC RBC Hgb Hct MCV MCH MCHC RDW Plt Count Lymph % (Auto) [place] % (Auto) Lymph # [place] # Baso # Seg Neutrophils % Seg Neuts % (Manual) Lymphocytes % (Manual) Monocytes % (Manual) Nucleated RBC % Seg Neutrophils # Seg Neutrophils # Man Lymphocytes # (Manual) Monocytes # (Manual) Basophils # (Manual) PT INR D-Dimer 1419.14 H ABG pH ABG pO2 ABG HCO3 ABG O2 Saturation ABG Base Excess ABG Hemoglobin Oxyhemoglobin Sodium Potassium Chloride Carbon Dioxide BUN Creatinine Glucose POC Glucose Lactic Acid Calcium Magnesium Iron TIBC Ferritin 1719.0 H AST ALT Lactate Dehydrogenase 234 H Troponin T C-Reactive Protein 15.50 H Total Protein Albumin Prealbumin Cholesterol LDL Cholesterol Direct HDL Cholesterol Urine WBC (Auto) Vancomycin Trough Coronavirus (PCR) Crossmatch 07/04/19 07/04/19 07/04/19 10:09 18:08 18:28 WBC RBC Hgb Hct MCV MCH MCHC RDW Plt Count Lymph % (Auto) [place] % (Auto) Lymph # [place] # Baso # Seg Neutrophils % Seg Neuts % (Manual) Lymphocytes % (Manual) Monocytes % (Manual) Nucleated RBC % Seg Neutrophils # Seg Neutrophils # Man Lymphocytes # (Manual) Monocytes # (Manual) Basophils # (Manual) PT INR D-Dimer ABG pH ABG pO2 ABG HCO3 ABG O2 Saturation ABG Base Excess ABG Hemoglobin Oxyhemoglobin Sodium 117 L* Potassium 5.6 H Chloride 90.3 L Carbon Dioxide 16 L BUN 28 H Creatinine 0.5 L Glucose 58 L POC Glucose 65 L Lactic Acid Calcium 8.2 L Magnesium Iron TIBC Ferritin AST ALT Lactate Dehydrogenase Troponin T C-Reactive Protein Total Protein Albumin Prealbumin Cholesterol LDL Cholesterol Direct HDL Cholesterol Urine WBC (Auto) Vancomycin Trough Coronavirus (PCR) Positive A Crossmatch 07/04/19 07/04/19 07/04/19 23:45 Unknown Unknown WBC RBC Hgb Hct MCV MCH MCHC RDW Plt Count Lymph % (Auto) [place] % (Auto) Lymph # [place] # Baso # Seg Neutrophils % Seg Neuts % (Manual) Lymphocytes % (Manual) Monocytes % (Manual) Nucleated RBC % Seg Neutrophils # Seg Neutrophils # Man Lymphocytes # (Manual) Monocytes # (Manual) Basophils # (Manual) PT INR D-Dimer 759.77 H ABG pH ABG pO2 ABG HCO3 ABG O2 Saturation ABG Base Excess ABG Hemoglobin Oxyhemoglobin Sodium 122 L Potassium Chloride 93.0 L Carbon Dioxide 19 L BUN 27 H Creatinine 0.5 L Glucose POC Glucose Lactic Acid Calcium 8.3 L Magnesium Iron TIBC Ferritin 1301.0 H AST ALT Lactate Dehydrogenase Troponin T C-Reactive Protein Total Protein Albumin Prealbumin Cholesterol LDL Cholesterol Direct HDL Cholesterol Urine WBC (Auto) Vancomycin Trough Coronavirus (PCR) Crossmatch 07/04/19 07/05/19 07/05/19 Unknown 03:20 04:00 WBC RBC Hgb Hct MCV MCH MCHC RDW Plt Count Lymph % (Auto) [place] % (Auto) Lymph # [place] # Baso # Seg Neutrophils % Seg Neuts % (Manual) Lymphocytes % (Manual) Monocytes % (Manual) Nucleated RBC % Seg Neutrophils # Seg Neutrophils # Man Lymphocytes # (Manual) Monocytes # (Manual) Basophils # (Manual) PT INR D-Dimer ABG pH ABG pO2 60.6 L ABG HCO3 ABG O2 Saturation 93.5 L ABG Base Excess -2.4 L ABG Hemoglobin 6.9 L Oxyhemoglobin 92.0 L Sodium 125 L Potassium Chloride 92.6 L Carbon Dioxide 19 L BUN 24 H Creatinine 0.6 L Glucose POC Glucose Lactic Acid Calcium 8.2 L Magnesium 1.40 L Iron TIBC Ferritin AST ALT Lactate Dehydrogenase 242 H Troponin T C-Reactive Protein 16.70 H Total Protein Albumin Prealbumin Cholesterol LDL Cholesterol Direct HDL Cholesterol Urine WBC (Auto) Vancomycin Trough Coronavirus (PCR) Crossmatch 07/05/19 07/05/19 07/05/19 10:11 16:15 17:54 WBC 46.4 H* RBC 2.77 L Hgb 7.2 L Hct 21.9 L MCV 79 L MCH 26 L MCHC RDW 19.0 H Plt Count Lymph % (Auto) [place] % (Auto) Lymph # [place] # Baso # Seg Neutrophils % Seg Neuts % (Manual) 82.0 H Lymphocytes % (Manual) 1.0 L Monocytes % (Manual) Nucleated RBC % Seg Neutrophils # Seg Neutrophils # Man 38.0 H Lymphocytes # (Manual) 0.5 L Monocytes # (Manual) Basophils # (Manual) PT INR D-Dimer ABG pH ABG pO2 ABG HCO3 ABG O2 Saturation ABG Base Excess ABG Hemoglobin Oxyhemoglobin Sodium Potassium Chloride Carbon Dioxide BUN Creatinine Glucose POC Glucose 69 L Lactic Acid Calcium Magnesium Iron TIBC Ferritin AST ALT Lactate Dehydrogenase Troponin T C-Reactive Protein Total Protein Albumin Prealbumin Cholesterol LDL Cholesterol Direct HDL Cholesterol Urine WBC (Auto) Vancomycin Trough 23.2 H Coronavirus (PCR) Crossmatch 07/05/19 07/06/19 07/06/19 19:58 00:27 00:27 WBC RBC Hgb Hct MCV MCH MCHC RDW Plt Count Lymph % (Auto) [place] % (Auto) Lymph # [place] # Baso # Seg Neutrophils % Seg Neuts % (Manual) Lymphocytes % (Manual) Monocytes % (Manual) Nucleated RBC % Seg Neutrophils # Seg Neutrophils # Man Lymphocytes # (Manual) Monocytes # (Manual) Basophils # (Manual) PT INR D-Dimer 1333.22 H ABG pH ABG pO2 ABG HCO3 ABG O2 Saturation ABG Base Excess ABG Hemoglobin Oxyhemoglobin Sodium 127 L Potassium Chloride Carbon Dioxide BUN Creatinine Glucose POC Glucose Lactic Acid Calcium Magnesium Iron TIBC Ferritin 977.1 H AST ALT Lactate Dehydrogenase Troponin T C-Reactive Protein Total Protein Albumin Prealbumin Cholesterol LDL Cholesterol Direct HDL Cholesterol Urine WBC (Auto) Vancomycin Trough Coronavirus (PCR) Crossmatch 07/06/19 07/06/19 07/06/19 00:27 02:00 02:56 WBC RBC Hgb Hct MCV MCH MCHC RDW Plt Count Lymph % (Auto) [place] % (Auto) Lymph # [place] # Baso # Seg Neutrophils % Seg Neuts % (Manual) Lymphocytes % (Manual) Monocytes % (Manual) Nucleated RBC % Seg Neutrophils # Seg Neutrophils # Man Lymphocytes # (Manual) Monocytes # (Manual) Basophils # (Manual) PT INR D-Dimer ABG pH ABG pO2 70.3 L ABG HCO3 ABG O2 Saturation 94.8 L ABG Base Excess ABG Hemoglobin 8.0 L Oxyhemoglobin 93.2 L Sodium Potassium Chloride Carbon Dioxide BUN Creatinine Glucose POC Glucose 117 H Lactic Acid Calcium Magnesium Iron TIBC Ferritin AST ALT Lactate Dehydrogenase 236 H Troponin T C-Reactive Protein 22.90 H Total Protein Albumin Prealbumin Cholesterol LDL Cholesterol Direct HDL Cholesterol Urine WBC (Auto) Vancomycin Trough Coronavirus (PCR) Crossmatch 07/06/19 07/06/19 07/06/19 03:49 03:49 07:40 WBC 38.8 H RBC 2.51 L Hgb 6.7 L Hct 19.9 L* MCV 79 L MCH 27 L MCHC RDW 19.2 H Plt Count Lymph % (Auto) [place] % (Auto) Lymph # [place] # Baso # Seg Neutrophils % Seg Neuts % (Manual) 90.5 H Lymphocytes % (Manual) 1.0 L Monocytes % (Manual) Nucleated RBC % Seg Neutrophils # Seg Neutrophils # Man 35.1 H Lymphocytes # (Manual) 0.4 L Monocytes # (Manual) Basophils # (Manual) PT INR D-Dimer ABG pH ABG pO2 ABG HCO3 ABG O2 Saturation ABG Base Excess ABG Hemoglobin Oxyhemoglobin Sodium 131 L Potassium Chloride 96.9 L Carbon Dioxide 18 L BUN 23 H Creatinine 0.5 L Glucose POC Glucose Lactic Acid Calcium 8.0 L Magnesium Iron TIBC Ferritin AST ALT Lactate Dehydrogenase Troponin T C-Reactive Protein Total Protein Albumin Prealbumin Cholesterol LDL Cholesterol Direct HDL Cholesterol Urine WBC (Auto) Vancomycin Trough Coronavirus (PCR) Crossmatch See Detail 07/06/19 07/06/19 07/06/19 12:38 14:39 20:00 WBC RBC Hgb Hct MCV MCH MCHC RDW Plt Count Lymph % (Auto) [place] % (Auto) Lymph # [place] # Baso # Seg Neutrophils % Seg Neuts % (Manual) Lymphocytes % (Manual) Monocytes % (Manual) Nucleated RBC % Seg Neutrophils # Seg Neutrophils # Man Lymphocytes # (Manual) Monocytes # (Manual) Basophils # (Manual) PT INR D-Dimer ABG pH ABG pO2 ABG HCO3 ABG O2 Saturation ABG Base Excess ABG Hemoglobin Oxyhemoglobin Sodium Potassium Chloride Carbon Dioxide BUN Creatinine Glucose POC Glucose 112 H 111 H 140 H Lactic Acid Calcium Magnesium Iron TIBC Ferritin AST ALT Lactate Dehydrogenase Troponin T C-Reactive Protein Total Protein Albumin Prealbumin Cholesterol LDL Cholesterol Direct HDL Cholesterol Urine WBC (Auto) Vancomycin Trough Coronavirus (PCR) Crossmatch 07/06/19 07/06/19 07/07/19 22:43 22:56 02:20 WBC RBC Hgb 7.9 L Hct 23.1 L MCV MCH MCHC RDW Plt Count Lymph % (Auto) [place] % (Auto) Lymph # [place] # Baso # Seg Neutrophils % Seg Neuts % (Manual) Lymphocytes % (Manual) Monocytes % (Manual) Nucleated RBC % Seg Neutrophils # Seg Neutrophils # Man Lymphocytes # (Manual) Monocytes # (Manual) Basophils # (Manual) PT INR D-Dimer ABG pH ABG pO2 ABG HCO3 ABG O2 Saturation ABG Base Excess ABG Hemoglobin Oxyhemoglobin Sodium Potassium Chloride Carbon Dioxide BUN Creatinine Glucose POC Glucose 122 H 149 H Lactic Acid Calcium Magnesium Iron TIBC Ferritin AST ALT Lactate Dehydrogenase Troponin T C-Reactive Protein Total Protein Albumin Prealbumin Cholesterol LDL Cholesterol Direct HDL Cholesterol Urine WBC (Auto) Vancomycin Trough Coronavirus (PCR) Crossmatch 07/07/19 07/07/19 07/07/19 04:35 05:27 05:34 WBC 23.1 H RBC 3.00 L Hgb 8.1 L Hct 24.2 L MCV 81 L MCH 27 L MCHC RDW 20.6 H Plt Count Lymph % (Auto) [place] % (Auto) Lymph # [place] # Baso # Seg Neutrophils % Seg Neuts % (Manual) 90.0 H Lymphocytes % (Manual) 2.0 L Monocytes % (Manual) Nucleated RBC % Seg Neutrophils # Seg Neutrophils # Man 20.8 H Lymphocytes # (Manual) 0.5 L Monocytes # (Manual) Basophils # (Manual) PT INR D-Dimer ABG pH ABG pO2 65.8 L ABG HCO3 ABG O2 Saturation 92.2 L ABG Base Excess ABG Hemoglobin 8.3 L Oxyhemoglobin 90.6 L Sodium Potassium Chloride Carbon Dioxide BUN Creatinine Glucose POC Glucose 132 H Lactic Acid Calcium Magnesium Iron TIBC Ferritin AST ALT Lactate Dehydrogenase Troponin T C-Reactive Protein Total Protein Albumin Prealbumin Cholesterol LDL Cholesterol Direct HDL Cholesterol Urine WBC (Auto) Vancomycin Trough Coronavirus (PCR) Crossmatch 07/07/19 07/07/19 07/07/19 05:34 11:50 15:58 WBC RBC Hgb 8.1 L Hct 24.2 L MCV MCH MCHC RDW Plt Count Lymph % (Auto) [place] % (Auto) Lymph # [place] # Baso # Seg Neutrophils % Seg Neuts % (Manual) Lymphocytes % (Manual) Monocytes % (Manual) Nucleated RBC % Seg Neutrophils # Seg Neutrophils # Man Lymphocytes # (Manual) Monocytes # (Manual) Basophils # (Manual) PT INR D-Dimer ABG pH ABG pO2 ABG HCO3 ABG O2 Saturation ABG Base Excess ABG Hemoglobin Oxyhemoglobin Sodium 135 L Potassium 3.3 L Chloride Carbon Dioxide 20 L BUN 27 H Creatinine 0.6 L Glucose 121 H POC Glucose 123 H Lactic Acid Calcium 8.0 L Magnesium Iron TIBC Ferritin AST ALT Lactate Dehydrogenase Troponin T C-Reactive Protein Total Protein Albumin Prealbumin Cholesterol LDL Cholesterol Direct HDL Cholesterol Urine WBC (Auto) Vancomycin Trough Coronavirus (PCR) Crossmatch 07/07/19 07/07/19 07/07/19 17:42 22:00 23:53 WBC RBC Hgb 8.0 L Hct 23.4 L MCV MCH MCHC RDW Plt Count Lymph % (Auto) [place] % (Auto) Lymph # [place] # Baso # Seg Neutrophils % Seg Neuts % (Manual) Lymphocytes % (Manual) Monocytes % (Manual) Nucleated RBC % Seg Neutrophils # Seg Neutrophils # Man Lymphocytes # (Manual) Monocytes # (Manual) Basophils # (Manual) PT INR D-Dimer ABG pH ABG pO2 ABG HCO3 ABG O2 Saturation ABG Base Excess ABG Hemoglobin Oxyhemoglobin Sodium Potassium Chloride Carbon Dioxide BUN Creatinine Glucose POC Glucose 107 H 117 H Lactic Acid Calcium Magnesium Iron TIBC Ferritin AST ALT Lactate Dehydrogenase Troponin T C-Reactive Protein Total Protein Albumin Prealbumin Cholesterol LDL Cholesterol Direct HDL Cholesterol Urine WBC (Auto) Vancomycin Trough Coronavirus (PCR) Crossmatch 07/08/19 07/08/19 07/08/19 00:45 00:45 00:45 WBC RBC Hgb Hct MCV MCH MCHC RDW Plt Count Lymph % (Auto) [place] % (Auto) Lymph # [place] # Baso # Seg Neutrophils % Seg Neuts % (Manual) Lymphocytes % (Manual) Monocytes % (Manual) Nucleated RBC % Seg Neutrophils # Seg Neutrophils # Man Lymphocytes # (Manual) Monocytes # (Manual) Basophils # (Manual) PT INR D-Dimer 1142.18 H ABG pH ABG pO2 ABG HCO3 ABG O2 Saturation ABG Base Excess ABG Hemoglobin Oxyhemoglobin Sodium Potassium Chloride Carbon Dioxide BUN Creatinine Glucose POC Glucose Lactic Acid Calcium Magnesium Iron TIBC Ferritin 839.0 H AST ALT Lactate Dehydrogenase 253 H Troponin T C-Reactive Protein 18.90 H Total Protein Albumin Prealbumin Cholesterol LDL Cholesterol Direct HDL Cholesterol Urine WBC (Auto) Vancomycin Trough Coronavirus (PCR) Crossmatch 07/08/19 07/08/19 07/08/19 04:30 05:11 12:02 WBC RBC Hgb Hct MCV MCH MCHC RDW Plt Count Lymph % (Auto) [place] % (Auto) Lymph # [place] # Baso # Seg Neutrophils % Seg Neuts % (Manual) Lymphocytes % (Manual) Monocytes % (Manual) Nucleated RBC % Seg Neutrophils # Seg Neutrophils # Man Lymphocytes # (Manual) Monocytes # (Manual) Basophils # (Manual) PT INR D-Dimer ABG pH ABG pO2 66.0 L ABG HCO3 ABG O2 Saturation 92.3 L ABG Base Excess ABG Hemoglobin 7.7 L Oxyhemoglobin 90.7 L Sodium Potassium Chloride Carbon Dioxide BUN Creatinine Glucose POC Glucose 108 H 153 H Lactic Acid Calcium Magnesium Iron TIBC Ferritin AST ALT Lactate Dehydrogenase Troponin T C-Reactive Protein Total Protein Albumin Prealbumin Cholesterol LDL Cholesterol Direct HDL Cholesterol Urine WBC (Auto) Vancomycin Trough Coronavirus (PCR) Crossmatch 07/08/19 07/08/19 07/08/19 16:15 18:22 23:35 WBC RBC Hgb Hct MCV MCH MCHC RDW Plt Count Lymph % (Auto) [place] % (Auto) Lymph # [place] # Baso # Seg Neutrophils % Seg Neuts % (Manual) Lymphocytes % (Manual) Monocytes % (Manual) Nucleated RBC % Seg Neutrophils # Seg Neutrophils # Man Lymphocytes # (Manual) Monocytes # (Manual) Basophils # (Manual) PT INR D-Dimer ABG pH ABG pO2 ABG HCO3 ABG O2 Saturation ABG Base Excess ABG Hemoglobin Oxyhemoglobin Sodium 134 L Potassium 3.3 L Chloride Carbon Dioxide 21 L BUN 27 H Creatinine 0.6 L Glucose 146 H POC Glucose 134 H 133 H Lactic Acid Calcium Magnesium Iron TIBC Ferritin AST ALT Lactate Dehydrogenase Troponin T C-Reactive Protein Total Protein Albumin Prealbumin Cholesterol LDL Cholesterol Direct HDL Cholesterol Urine WBC (Auto) Vancomycin Trough Coronavirus (PCR) Crossmatch 07/09/19 07/09/19 07/09/19 04:30 04:30 05:00 WBC 18.9 H RBC 2.77 L Hgb 7.4 L Hct 22.8 L MCV 82 L MCH 27 L MCHC RDW 20.9 H Plt Count 130 L Lymph % (Auto) [place] % (Auto) Lymph # [place] # Baso # Seg Neutrophils % Seg Neuts % (Manual) 84.0 H Lymphocytes % (Manual) 0 L Monocytes % (Manual) Nucleated RBC % Seg Neutrophils # Seg Neutrophils # Man 15.9 H Lymphocytes # (Manual) 0.0 L Monocytes # (Manual) Basophils # (Manual) PT INR D-Dimer ABG pH ABG pO2 ABG HCO3 ABG O2 Saturation ABG Base Excess ABG Hemoglobin Oxyhemoglobin Sodium Potassium 3.1 L Chloride Carbon Dioxide BUN 26 H Creatinine 0.5 L Glucose 125 H POC Glucose 155 H Lactic Acid Calcium Magnesium Iron TIBC Ferritin AST ALT Lactate Dehydrogenase Troponin T C-Reactive Protein Total Protein Albumin Prealbumin Cholesterol LDL Cholesterol Direct HDL Cholesterol Urine WBC (Auto) Vancomycin Trough Coronavirus (PCR) Crossmatch 07/09/19 07/09/19 07/09/19 05:55 12:22 17:50 WBC RBC Hgb Hct MCV MCH MCHC RDW Plt Count Lymph % (Auto) [place] % (Auto) Lymph # [place] # Baso # Seg Neutrophils % Seg Neuts % (Manual) Lymphocytes % (Manual) Monocytes % (Manual) Nucleated RBC % Seg Neutrophils # Seg Neutrophils # Man Lymphocytes # (Manual) Monocytes # (Manual) Basophils # (Manual) PT INR D-Dimer ABG pH ABG pO2 62.8 L ABG HCO3 ABG O2 Saturation ABG Base Excess ABG Hemoglobin 6.1 L Oxyhemoglobin 93.9 L Sodium Potassium Chloride Carbon Dioxide BUN Creatinine Glucose POC Glucose 115 H 133 H Lactic Acid Calcium Magnesium Iron TIBC Ferritin AST ALT Lactate Dehydrogenase Troponin T C-Reactive Protein Total Protein Albumin Prealbumin Cholesterol LDL Cholesterol Direct HDL Cholesterol Urine WBC (Auto) Vancomycin Trough Coronavirus (PCR) Crossmatch 07/10/19 07/10/19 07/10/19 00:38 04:00 04:00 WBC RBC Hgb Hct MCV MCH MCHC RDW Plt Count Lymph % (Auto) [place] % (Auto) Lymph # [place] # Baso # Seg Neutrophils % Seg Neuts % (Manual) Lymphocytes % (Manual) Monocytes % (Manual) Nucleated RBC % Seg Neutrophils # Seg Neutrophils # Man Lymphocytes # (Manual) Monocytes # (Manual) Basophils # (Manual) PT INR D-Dimer ABG pH ABG pO2 ABG HCO3 ABG O2 Saturation ABG Base Excess ABG Hemoglobin Oxyhemoglobin Sodium Potassium Chloride 107.9 H Carbon Dioxide BUN 26 H Creatinine 0.4 L Glucose 137 H POC Glucose 122 H Lactic Acid Calcium Magnesium 1.50 L Iron TIBC Ferritin AST ALT Lactate Dehydrogenase 277 H Troponin T C-Reactive Protein 15.10 H Total Protein Albumin Prealbumin Cholesterol LDL Cholesterol Direct HDL Cholesterol Urine WBC (Auto) Vancomycin Trough Coronavirus (PCR) Crossmatch 07/10/19 07/10/19 07/10/19 04:07 05:21 17:25 WBC RBC Hgb Hct MCV MCH MCHC RDW Plt Count Lymph % (Auto) [place] % (Auto) Lymph # [place] # Baso # Seg Neutrophils % Seg Neuts % (Manual) Lymphocytes % (Manual) Monocytes % (Manual) Nucleated RBC % Seg Neutrophils # Seg Neutrophils # Man Lymphocytes # (Manual) Monocytes # (Manual) Basophils # (Manual) PT INR D-Dimer ABG pH ABG pO2 65.6 L ABG HCO3 26.3 H ABG O2 Saturation ABG Base Excess ABG Hemoglobin 6.7 L Oxyhemoglobin Sodium Potassium Chloride Carbon Dioxide BUN Creatinine Glucose POC Glucose 144 H 113 H Lactic Acid Calcium Magnesium Iron TIBC Ferritin AST ALT Lactate Dehydrogenase Troponin T C-Reactive Protein Total Protein Albumin Prealbumin Cholesterol LDL Cholesterol Direct HDL Cholesterol Urine WBC (Auto) Vancomycin Trough Coronavirus (PCR) Crossmatch 07/11/19 07/11/19 07/11/19 00:07 05:14 05:25 WBC RBC Hgb Hct MCV MCH MCHC RDW Plt Count Lymph % (Auto) [place] % (Auto) Lymph # [place] # Baso # Seg Neutrophils % Seg Neuts % (Manual) Lymphocytes % (Manual) Monocytes % (Manual) Nucleated RBC % Seg Neutrophils # Seg Neutrophils # Man Lymphocytes # (Manual) Monocytes # (Manual) Basophils # (Manual) PT INR D-Dimer ABG pH ABG pO2 ABG HCO3 ABG O2 Saturation ABG Base Excess ABG Hemoglobin 5.8 L Oxyhemoglobin Sodium Potassium Chloride 108.0 H Carbon Dioxide BUN 26 H Creatinine 0.4 L Glucose 110 H POC Glucose 121 H Lactic Acid Calcium Magnesium Iron TIBC Ferritin AST ALT Lactate Dehydrogenase Troponin T C-Reactive Protein Total Protein Albumin Prealbumin Cholesterol LDL Cholesterol Direct HDL Cholesterol Urine WBC (Auto) Vancomycin Trough Coronavirus (PCR) Crossmatch 07/11/19 07/11/19 07/11/19 12:27 18:00 23:42 WBC RBC Hgb Hct MCV MCH MCHC RDW Plt Count Lymph % (Auto) [place] % (Auto) Lymph # [place] # Baso # Seg Neutrophils % Seg Neuts % (Manual) Lymphocytes % (Manual) Monocytes % (Manual) Nucleated RBC % Seg Neutrophils # Seg Neutrophils # Man Lymphocytes # (Manual) Monocytes # (Manual) Basophils # (Manual) PT INR D-Dimer ABG pH ABG pO2 ABG HCO3 ABG O2 Saturation ABG Base Excess ABG Hemoglobin Oxyhemoglobin Sodium Potassium Chloride Carbon Dioxide BUN Creatinine Glucose POC Glucose 158 H 141 H 142 H Lactic Acid Calcium Magnesium Iron TIBC Ferritin AST ALT Lactate Dehydrogenase Troponin T C-Reactive Protein Total Protein Albumin Prealbumin Cholesterol LDL Cholesterol Direct HDL Cholesterol Urine WBC (Auto) Vancomycin Trough Coronavirus (PCR) Crossmatch 07/12/19 07/12/19 07/12/19 04:46 04:46 05:23 WBC 23.6 H RBC 2.51 L Hgb 6.7 L Hct 20.8 L MCV 83 L MCH 27 L MCHC RDW 20.3 H Plt Count Lymph % (Auto) [place] % (Auto) Lymph # [place] # Baso # Seg Neutrophils % Seg Neuts % (Manual) 94.0 H Lymphocytes % (Manual) 4.0 L Monocytes % (Manual) Nucleated RBC % Seg Neutrophils # Seg Neutrophils # Man 22.2 H Lymphocytes # (Manual) 0.9 L Monocytes # (Manual) Basophils # (Manual) PT INR D-Dimer ABG pH ABG pO2 ABG HCO3 ABG O2 Saturation ABG Base Excess ABG Hemoglobin Oxyhemoglobin Sodium Potassium Chloride 107.1 H Carbon Dioxide BUN 25 H Creatinine 0.4 L Glucose 122 H POC Glucose 118 H Lactic Acid Calcium Magnesium Iron TIBC Ferritin AST ALT Lactate Dehydrogenase Troponin T C-Reactive Protein Total Protein Albumin Prealbumin Cholesterol LDL Cholesterol Direct HDL Cholesterol Urine WBC (Auto) Vancomycin Trough Coronavirus (PCR) Crossmatch 07/12/19 07/12/19 07/12/19 08:49 11:36 18:15 WBC RBC Hgb Hct MCV MCH MCHC RDW Plt Count Lymph % (Auto) [place] % (Auto) Lymph # [place] # Baso # Seg Neutrophils % Seg Neuts % (Manual) Lymphocytes % (Manual) Monocytes % (Manual) Nucleated RBC % Seg Neutrophils # Seg Neutrophils # Man Lymphocytes # (Manual) Monocytes # (Manual) Basophils # (Manual) PT INR D-Dimer ABG pH ABG pO2 ABG HCO3 ABG O2 Saturation ABG Base Excess ABG Hemoglobin Oxyhemoglobin Sodium Potassium Chloride Carbon Dioxide BUN Creatinine Glucose POC Glucose 124 H 110 H Lactic Acid Calcium Magnesium Iron TIBC Ferritin AST ALT Lactate Dehydrogenase Troponin T C-Reactive Protein Total Protein Albumin Prealbumin Cholesterol LDL Cholesterol Direct HDL Cholesterol Urine WBC (Auto) Vancomycin Trough Coronavirus (PCR) Crossmatch See Detail 07/12/19 07/13/19 07/13/19 23:16 05:26 06:50 WBC 23.9 H RBC 2.58 L Hgb 6.9 L Hct 21.5 L MCV 83 L MCH 27 L MCHC RDW 19.0 H Plt Count Lymph % (Auto) [place] % (Auto) Lymph # [place] # Baso # Seg Neutrophils % Seg Neuts % (Manual) 96.0 H Lymphocytes % (Manual) 3.0 L Monocytes % (Manual) Nucleated RBC % Seg Neutrophils # Seg Neutrophils # Man 22.9 H Lymphocytes # (Manual) 0.7 L Monocytes # (Manual) Basophils # (Manual) PT INR D-Dimer ABG pH ABG pO2 ABG HCO3 ABG O2 Saturation ABG Base Excess ABG Hemoglobin Oxyhemoglobin Sodium Potassium Chloride Carbon Dioxide BUN Creatinine Glucose POC Glucose 108 H 126 H Lactic Acid Calcium Magnesium Iron TIBC Ferritin AST ALT Lactate Dehydrogenase Troponin T C-Reactive Protein Total Protein Albumin Prealbumin Cholesterol LDL Cholesterol Direct HDL Cholesterol Urine WBC (Auto) Vancomycin Trough Coronavirus (PCR) Crossmatch 07/13/19 07/13/19 07/13/19 06:50 12:38 18:05 WBC RBC Hgb Hct MCV MCH MCHC RDW Plt Count Lymph % (Auto) [place] % (Auto) Lymph # [place] # Baso # Seg Neutrophils % Seg Neuts % (Manual) Lymphocytes % (Manual) Monocytes % (Manual) Nucleated RBC % Seg Neutrophils # Seg Neutrophils # Man Lymphocytes # (Manual) Monocytes # (Manual) Basophils # (Manual) PT INR D-Dimer ABG pH ABG pO2 ABG HCO3 ABG O2 Saturation ABG Base Excess ABG Hemoglobin Oxyhemoglobin Sodium Potassium Chloride Carbon Dioxide BUN 33 H Creatinine 0.5 L Glucose 136 H POC Glucose 164 H 145 H Lactic Acid Calcium Magnesium Iron TIBC Ferritin AST ALT Lactate Dehydrogenase Troponin T C-Reactive Protein Total Protein Albumin Prealbumin Cholesterol LDL Cholesterol Direct HDL Cholesterol Urine WBC (Auto) Vancomycin Trough Coronavirus (PCR) Crossmatch 07/13/19 07/14/19 07/14/19 18:30 00:21 04:40 WBC 22.9 H RBC 2.45 L Hgb 6.6 L Hct 21.1 L MCV MCH 27 L MCHC 31 L RDW 19.2 H Plt Count Lymph % (Auto) [place] % (Auto) Lymph # [place] # Baso # Seg Neutrophils % Seg Neuts % (Manual) 91.0 H Lymphocytes % (Manual) 7.0 L Monocytes % (Manual) Nucleated RBC % Seg Neutrophils # Seg Neutrophils # Man 20.8 H Lymphocytes # (Manual) Monocytes # (Manual) Basophils # (Manual) PT INR D-Dimer ABG pH ABG pO2 58.1 L ABG HCO3 ABG O2 Saturation 88.7 L ABG Base Excess ABG Hemoglobin 7.8 L Oxyhemoglobin 86.8 L Sodium Potassium Chloride Carbon Dioxide BUN Creatinine Glucose POC Glucose 118 H Lactic Acid Calcium Magnesium Iron TIBC Ferritin AST ALT Lactate Dehydrogenase Troponin T C-Reactive Protein Total Protein Albumin Prealbumin Cholesterol LDL Cholesterol Direct HDL Cholesterol Urine WBC (Auto) Vancomycin Trough Coronavirus (PCR) Crossmatch 07/14/19 07/14/19 07/14/19 04:40 05:38 05:45 WBC RBC Hgb Hct MCV MCH MCHC RDW Plt Count Lymph % (Auto) [place] % (Auto) Lymph # [place] # Baso # Seg Neutrophils % Seg Neuts % (Manual) Lymphocytes % (Manual) Monocytes % (Manual) Nucleated RBC % Seg Neutrophils # Seg Neutrophils # Man Lymphocytes # (Manual) Monocytes # (Manual) Basophils # (Manual) PT INR D-Dimer ABG pH 7.230 L ABG pO2 72.1 L ABG HCO3 ABG O2 Saturation 89.3 L ABG Base Excess -2.7 L ABG Hemoglobin 6.7 L Oxyhemoglobin 87.7 L Sodium Potassium Chloride 107.4 H Carbon Dioxide BUN 45 H Creatinine Glucose 101 H POC Glucose 154 H Lactic Acid Calcium Magnesium Iron TIBC Ferritin AST ALT Lactate Dehydrogenase Troponin T C-Reactive Protein Total Protein Albumin Prealbumin Cholesterol LDL Cholesterol Direct HDL Cholesterol Urine WBC (Auto) Vancomycin Trough Coronavirus (PCR) Crossmatch 07/14/19 07/14/19 07/14/19 12:25 18:20 19:01 WBC 22.4 H RBC 2.70 L Hgb 7.5 L Hct 23.3 L MCV MCH MCHC RDW 19.5 H Plt Count Lymph % (Auto) [place] % (Auto) Lymph # [place] # Baso # Seg Neutrophils % Seg Neuts % (Manual) Lymphocytes % (Manual) Monocytes % (Manual) Nucleated RBC % Seg Neutrophils # Seg Neutrophils # Man Lymphocytes # (Manual) Monocytes # (Manual) Basophils # (Manual) PT INR D-Dimer ABG pH ABG pO2 ABG HCO3 ABG O2 Saturation ABG Base Excess ABG Hemoglobin Oxyhemoglobin Sodium Potassium Chloride Carbon Dioxide BUN Creatinine Glucose POC Glucose 136 H 131 H Lactic Acid Calcium Magnesium Iron TIBC Ferritin AST ALT Lactate Dehydrogenase Troponin T C-Reactive Protein Total Protein Albumin Prealbumin Cholesterol LDL Cholesterol Direct HDL Cholesterol Urine WBC (Auto) Vancomycin Trough Coronavirus (PCR) Crossmatch 07/15/19 07/15/19 07/15/19 00:17 04:35 05:18 WBC 20.6 H RBC 2.41 L Hgb 6.8 L Hct 20.7 L MCV MCH MCHC RDW 20.2 H Plt Count Lymph % (Auto) [place] % (Auto) Lymph # [place] # Baso # Seg Neutrophils % Seg Neuts % (Manual) 92.0 H Lymphocytes % (Manual) 5.0 L Monocytes % (Manual) Nucleated RBC % Seg Neutrophils # Seg Neutrophils # Man 19.0 H Lymphocytes # (Manual) 1.0 L Monocytes # (Manual) Basophils # (Manual) PT INR D-Dimer ABG pH 7.342 L ABG pO2 ABG HCO3 ABG O2 Saturation ABG Base Excess -3.1 L ABG Hemoglobin 7.2 L Oxyhemoglobin 94.9 L Sodium Potassium Chloride Carbon Dioxide BUN Creatinine Glucose POC Glucose 116 H Lactic Acid Calcium Magnesium Iron TIBC Ferritin AST ALT Lactate Dehydrogenase Troponin T C-Reactive Protein Total Protein Albumin Prealbumin Cholesterol LDL Cholesterol Direct HDL Cholesterol Urine WBC (Auto) Vancomycin Trough Coronavirus (PCR) Crossmatch 07/15/19 07/15/19 07/15/19 05:18 05:57 11:28 WBC RBC Hgb Hct MCV MCH MCHC RDW Plt Count Lymph % (Auto) [place] % (Auto) Lymph # [place] # Baso # Seg Neutrophils % Seg Neuts % (Manual) Lymphocytes % (Manual) Monocytes % (Manual) Nucleated RBC % Seg Neutrophils # Seg Neutrophils # Man Lymphocytes # (Manual) Monocytes # (Manual) Basophils # (Manual) PT INR D-Dimer ABG pH ABG pO2 ABG HCO3 ABG O2 Saturation ABG Base Excess ABG Hemoglobin Oxyhemoglobin Sodium Potassium Chloride Carbon Dioxide 20 L BUN 59 H Creatinine Glucose 140 H POC Glucose 139 H 117 H Lactic Acid Calcium Magnesium Iron TIBC Ferritin AST ALT Lactate Dehydrogenase Troponin T C-Reactive Protein Total Protein Albumin Prealbumin Cholesterol LDL Cholesterol Direct HDL Cholesterol Urine WBC (Auto) Vancomycin Trough Coronavirus (PCR) Crossmatch 07/15/19 07/16/19 07/16/19 18:13 00:06 03:43 WBC RBC Hgb Hct MCV MCH MCHC RDW Plt Count Lymph % (Auto) [place] % (Auto) Lymph # [place] # Baso # Seg Neutrophils % Seg Neuts % (Manual) Lymphocytes % (Manual) Monocytes % (Manual) Nucleated RBC % Seg Neutrophils # Seg Neutrophils # Man Lymphocytes # (Manual) Monocytes # (Manual) Basophils # (Manual) PT INR D-Dimer ABG pH 7.344 L ABG pO2 68.6 L ABG HCO3 ABG O2 Saturation ABG Base Excess -3.5 L ABG Hemoglobin 6.1 L Oxyhemoglobin 93.3 L Sodium Potassium Chloride Carbon Dioxide BUN Creatinine Glucose POC Glucose 114 H 119 H Lactic Acid Calcium Magnesium Iron TIBC Ferritin AST ALT Lactate Dehydrogenase Troponin T C-Reactive Protein Total Protein Albumin Prealbumin Cholesterol LDL Cholesterol Direct HDL Cholesterol Urine WBC (Auto) Vancomycin Trough Coronavirus (PCR) Crossmatch 04/07/16/19 07/16/19 04:41 04:41 12:09 WBC 19.6 H RBC 2.81 L Hgb 7.7 L Hct 24.0 L MCV MCH 27 L MCHC RDW 19.4 H Plt Count 514 H Lymph % (Auto) 6.7 L [place] % (Auto) Lymph # [place] # 1.0 H Baso # Seg Neutrophils % 87.0 H Seg Neuts % (Manual) Lymphocytes % (Manual) Monocytes % (Manual) Nucleated RBC % Seg Neutrophils # 17.0 H Seg Neutrophils # Man Lymphocytes # (Manual) Monocytes # (Manual) Basophils # (Manual) PT INR D-Dimer ABG pH ABG pO2 ABG HCO3 ABG O2 Saturation ABG Base Excess ABG Hemoglobin Oxyhemoglobin Sodium Potassium 5.9 H Chloride Carbon Dioxide 21 L BUN 73 H Creatinine 2.0 H Glucose POC Glucose 141 H Lactic Acid Calcium Magnesium Iron TIBC Ferritin AST ALT Lactate Dehydrogenase Troponin T C-Reactive Protein Total Protein Albumin Prealbumin Cholesterol LDL Cholesterol Direct HDL Cholesterol Urine WBC (Auto) Vancomycin Trough Coronavirus (PCR) Crossmatch 07/16/19 07/16/19 07/17/19 16:19 17:45 00:16 WBC RBC Hgb Hct MCV MCH MCHC RDW Plt Count Lymph % (Auto) [place] % (Auto) Lymph # [place] # Baso # Seg Neutrophils % Seg Neuts % (Manual) Lymphocytes % (Manual) Monocytes % (Manual) Nucleated RBC % Seg Neutrophils # Seg Neutrophils # Man Lymphocytes # (Manual) Monocytes # (Manual) Basophils # (Manual) PT INR D-Dimer ABG pH ABG pO2 ABG HCO3 ABG O2 Saturation ABG Base Excess ABG Hemoglobin Oxyhemoglobin Sodium Potassium 5.1 H Chloride Carbon Dioxide 20 L BUN 72 H Creatinine 1.7 H Glucose 128 H POC Glucose 181 H 164 H Lactic Acid Calcium Magnesium Iron TIBC Ferritin AST ALT Lactate Dehydrogenase Troponin T C-Reactive Protein Total Protein Albumin Prealbumin Cholesterol LDL Cholesterol Direct HDL Cholesterol Urine WBC (Auto) Vancomycin Trough Coronavirus (PCR) Crossmatch 07/17/19 07/17/19 07/17/19 04:20 04:39 04:39 WBC 16.1 H RBC 2.92 L Hgb 8.0 L Hct 25.5 L MCV MCH MCHC 31 L RDW 19.7 H Plt Count 564 H Lymph % (Auto) 3.6 L [place] % (Auto) 7.4 H Lymph # 0.6 L [place] # 1.2 H Baso # Seg Neutrophils % 87.5 H Seg Neuts % (Manual) Lymphocytes % (Manual) Monocytes % (Manual) Nucleated RBC % Seg Neutrophils # 14.1 H Seg Neutrophils # Man Lymphocytes # (Manual) Monocytes # (Manual) Basophils # (Manual) PT INR D-Dimer ABG pH 7.231 L ABG pO2 95.3 H ABG HCO3 ABG O2 Saturation ABG Base Excess -5.0 L ABG Hemoglobin 7.9 L Oxyhemoglobin 94.8 L Sodium Potassium Chloride 107.8 H Carbon Dioxide 21 L BUN 68 H Creatinine Glucose POC Glucose Lactic Acid Calcium Magnesium Iron TIBC Ferritin AST ALT Lactate Dehydrogenase Troponin T C-Reactive Protein Total Protein Albumin Prealbumin Cholesterol LDL Cholesterol Direct HDL Cholesterol Urine WBC (Auto) Vancomycin Trough Coronavirus (PCR) Crossmatch 07/17/19 07/17/19 07/17/19 05:28 12:11 18:48 WBC RBC Hgb Hct MCV MCH MCHC RDW Plt Count Lymph % (Auto) [place] % (Auto) Lymph # [place] # Baso # Seg Neutrophils % Seg Neuts % (Manual) Lymphocytes % (Manual) Monocytes % (Manual) Nucleated RBC % Seg Neutrophils # Seg Neutrophils # Man Lymphocytes # (Manual) Monocytes # (Manual) Basophils # (Manual) PT INR D-Dimer ABG pH ABG pO2 ABG HCO3 ABG O2 Saturation ABG Base Excess ABG Hemoglobin Oxyhemoglobin Sodium Potassium Chloride Carbon Dioxide BUN Creatinine Glucose POC Glucose 121 H 125 H 174 H Lactic Acid Calcium Magnesium Iron TIBC Ferritin AST ALT Lactate Dehydrogenase Troponin T C-Reactive Protein Total Protein Albumin Prealbumin Cholesterol LDL Cholesterol Direct HDL Cholesterol Urine WBC (Auto) Vancomycin Trough Coronavirus (PCR) Crossmatch 07/17/19 07/17/19 07/18/19 19:55 23:57 02:30 WBC RBC Hgb Hct MCV MCH MCHC RDW Plt Count Lymph % (Auto) [place] % (Auto) Lymph # [place] # Baso # Seg Neutrophils % Seg Neuts % (Manual) Lymphocytes % (Manual) Monocytes % (Manual) Nucleated RBC % Seg Neutrophils # Seg Neutrophils # Man Lymphocytes # (Manual) Monocytes # (Manual) Basophils # (Manual) PT INR D-Dimer ABG pH 7.344 L 7.294 L ABG pO2 78.5 L 119.2 H ABG HCO3 ABG O2 Saturation ABG Base Excess -3.3 L -2.6 L ABG Hemoglobin 8.6 L 8.1 L Oxyhemoglobin 94.8 L Sodium Potassium Chloride Carbon Dioxide BUN Creatinine Glucose POC Glucose 148 H Lactic Acid Calcium Magnesium Iron TIBC Ferritin AST ALT Lactate Dehydrogenase Troponin T C-Reactive Protein Total Protein Albumin Prealbumin Cholesterol LDL Cholesterol Direct HDL Cholesterol Urine WBC (Auto) Vancomycin Trough Coronavirus (PCR) Crossmatch 07/18/19 07/18/19 07/18/19 04:49 05:22 05:22 WBC 15.9 H RBC 3.00 L Hgb 8.1 L Hct 26.0 L MCV MCH 27 L MCHC 31 L RDW 19.4 H Plt Count 733 H Lymph % (Auto) 6.3 L [place] % (Auto) 7.4 H Lymph # 1.0 L [place] # 1.2 H Baso # 0.2 H Seg Neutrophils % 83.8 H Seg Neuts % (Manual) Lymphocytes % (Manual) Monocytes % (Manual) Nucleated RBC % Seg Neutrophils # 13.3 H Seg Neutrophils # Man Lymphocytes # (Manual) Monocytes # (Manual) Basophils # (Manual) PT INR D-Dimer ABG pH ABG pO2 ABG HCO3 ABG O2 Saturation ABG Base Excess ABG Hemoglobin Oxyhemoglobin Sodium Potassium Chloride 110.6 H Carbon Dioxide BUN 61 H Creatinine Glucose 109 H POC Glucose 116 H Lactic Acid Calcium Magnesium Iron TIBC Ferritin AST ALT Lactate Dehydrogenase Troponin T C-Reactive Protein Total Protein Albumin Prealbumin Cholesterol LDL Cholesterol Direct HDL Cholesterol Urine WBC (Auto) Vancomycin Trough Coronavirus (PCR) Crossmatch 07/18/19 07/18/19 07/18/19 12:23 18:06 22:20 WBC RBC Hgb Hct MCV MCH MCHC RDW Plt Count Lymph % (Auto) [place] % (Auto) Lymph # [place] # Baso # Seg Neutrophils % Seg Neuts % (Manual) Lymphocytes % (Manual) Monocytes % (Manual) Nucleated RBC % Seg Neutrophils # Seg Neutrophils # Man Lymphocytes # (Manual) Monocytes # (Manual) Basophils # (Manual) PT INR D-Dimer ABG pH 7.338 L ABG pO2 135.1 H ABG HCO3 ABG O2 Saturation ABG Base Excess ABG Hemoglobin 9.2 L Oxyhemoglobin Sodium Potassium Chloride Carbon Dioxide BUN Creatinine Glucose POC Glucose 114 H 113 H Lactic Acid Calcium Magnesium Iron TIBC Ferritin AST ALT Lactate Dehydrogenase Troponin T C-Reactive Protein Total Protein Albumin Prealbumin Cholesterol LDL Cholesterol Direct HDL Cholesterol Urine WBC (Auto) Vancomycin Trough Coronavirus (PCR) Crossmatch 07/18/19 07/19/19 07/19/19 23:33 03:45 05:18 WBC RBC Hgb Hct MCV MCH MCHC RDW Plt Count Lymph % (Auto) [place] % (Auto) Lymph # [place] # Baso # Seg Neutrophils % Seg Neuts % (Manual) Lymphocytes % (Manual) Monocytes % (Manual) Nucleated RBC % Seg Neutrophils # Seg Neutrophils # Man Lymphocytes # (Manual) Monocytes # (Manual) Basophils # (Manual) PT INR D-Dimer ABG pH 7.342 L ABG pO2 95.0 H ABG HCO3 ABG O2 Saturation ABG Base Excess ABG Hemoglobin 8.5 L Oxyhemoglobin Sodium Potassium Chloride Carbon Dioxide BUN Creatinine Glucose POC Glucose 125 H 111 H Lactic Acid Calcium Magnesium Iron TIBC Ferritin AST ALT Lactate Dehydrogenase Troponin T C-Reactive Protein Total Protein Albumin Prealbumin Cholesterol LDL Cholesterol Direct HDL Cholesterol Urine WBC (Auto) Vancomycin Trough Coronavirus (PCR) Crossmatch 07/19/19 07/19/19 07/19/19 08:45 08:45 11:47 WBC 15.9 H RBC 3.31 L Hgb 9.1 L Hct 28.4 L MCV MCH 27 L MCHC RDW 19.1 H Plt Count 858 H Lymph % (Auto) 4.9 L [place] % (Auto) 8.1 H Lymph # 0.8 L [place] # 1.3 H Baso # Seg Neutrophils % 85.5 H Seg Neuts % (Manual) Lymphocytes % (Manual) Monocytes % (Manual) Nucleated RBC % Seg Neutrophils # 13.6 H Seg Neutrophils # Man Lymphocytes # (Manual) Monocytes # (Manual) Basophils # (Manual) PT INR D-Dimer ABG pH ABG pO2 ABG HCO3 ABG O2 Saturation ABG Base Excess ABG Hemoglobin Oxyhemoglobin Sodium Potassium Chloride 111.6 H Carbon Dioxide BUN 50 H Creatinine 0.7 L Glucose 118 H POC Glucose 114 H Lactic Acid Calcium Magnesium Iron TIBC Ferritin AST ALT Lactate Dehydrogenase Troponin T C-Reactive Protein Total Protein Albumin Prealbumin Cholesterol LDL Cholesterol Direct HDL Cholesterol Urine WBC (Auto) Vancomycin Trough Coronavirus (PCR) Crossmatch 07/19/19 07/19/19 07/20/19 18:25 23:44 04:39 WBC RBC Hgb Hct MCV MCH MCHC RDW Plt Count Lymph % (Auto) [place] % (Auto) Lymph # [place] # Baso # Seg Neutrophils % Seg Neuts % (Manual) Lymphocytes % (Manual) Monocytes % (Manual) Nucleated RBC % Seg Neutrophils # Seg Neutrophils # Man Lymphocytes # (Manual) Monocytes # (Manual) Basophils # (Manual) PT INR D-Dimer ABG pH ABG pO2 ABG HCO3 ABG O2 Saturation ABG Base Excess ABG Hemoglobin Oxyhemoglobin Sodium Potassium Chloride 110.3 H Carbon Dioxide BUN 44 H Creatinine 0.6 L Glucose 120 H POC Glucose 115 H 117 H Lactic Acid Calcium Magnesium Iron TIBC Ferritin AST ALT Lactate Dehydrogenase Troponin T C-Reactive Protein Total Protein Albumin Prealbumin Cholesterol LDL Cholesterol Direct HDL Cholesterol Urine WBC (Auto) Vancomycin Trough Coronavirus (PCR) Crossmatch 07/20/19 07/21/19 07/21/19 05:30 11:59 17:40 WBC RBC Hgb Hct MCV MCH MCHC RDW Plt Count Lymph % (Auto) [place] % (Auto) Lymph # [place] # Baso # Seg Neutrophils % Seg Neuts % (Manual) Lymphocytes % (Manual) Monocytes % (Manual) Nucleated RBC % Seg Neutrophils # Seg Neutrophils # Man Lymphocytes # (Manual) Monocytes # (Manual) Basophils # (Manual) PT INR D-Dimer ABG pH ABG pO2 ABG HCO3 ABG O2 Saturation ABG Base Excess ABG Hemoglobin Oxyhemoglobin Sodium Potassium Chloride Carbon Dioxide BUN Creatinine Glucose POC Glucose 131 H 122 H 125 H Lactic Acid Calcium Magnesium Iron TIBC Ferritin AST ALT Lactate Dehydrogenase Troponin T C-Reactive Protein Total Protein Albumin Prealbumin Cholesterol LDL Cholesterol Direct HDL Cholesterol Urine WBC (Auto) Vancomycin Trough Coronavirus (PCR) Crossmatch 07/22/19 07/22/19 07/22/19 05:38 05:38 12:29 WBC 12.6 H RBC 3.19 L Hgb 8.9 L Hct 27.5 L MCV MCH MCHC RDW 18.9 H Plt Count 1101 H* Lymph % (Auto) [place] % (Auto) 12.2 H Lymph # [place] # 1.5 H Baso # Seg Neutrophils % 72.8 H Seg Neuts % (Manual) 76.0 H Lymphocytes % (Manual) 7.0 L Monocytes % (Manual) 14.0 H Nucleated RBC % 1.0 H Seg Neutrophils # 9.2 H Seg Neutrophils # Man 9.6 H Lymphocytes # (Manual) 0.9 L Monocytes # (Manual) 1.8 H Basophils # (Manual) PT INR D-Dimer ABG pH ABG pO2 ABG HCO3 ABG O2 Saturation ABG Base Excess ABG Hemoglobin Oxyhemoglobin Sodium Potassium 3.4 L Chloride Carbon Dioxide BUN 29 H Creatinine 0.5 L Glucose POC Glucose 116 H Lactic Acid Calcium Magnesium Iron TIBC Ferritin AST ALT Lactate Dehydrogenase Troponin T C-Reactive Protein Total Protein Albumin Prealbumin Cholesterol LDL Cholesterol Direct HDL Cholesterol Urine WBC (Auto) Vancomycin Trough Coronavirus (PCR) Crossmatch 07/22/19 07/22/19 07/23/19 18:20 23:51 04:52 WBC RBC Hgb Hct MCV MCH MCHC RDW Plt Count Lymph % (Auto) [place] % (Auto) Lymph # [place] # Baso # Seg Neutrophils % Seg Neuts % (Manual) Lymphocytes % (Manual) Monocytes % (Manual) Nucleated RBC % Seg Neutrophils # Seg Neutrophils # Man Lymphocytes # (Manual) Monocytes # (Manual) Basophils # (Manual) PT INR D-Dimer ABG pH ABG pO2 ABG HCO3 ABG O2 Saturation ABG Base Excess ABG Hemoglobin Oxyhemoglobin Sodium Potassium Chloride Carbon Dioxide BUN 24 H Creatinine 0.4 L Glucose POC Glucose 107 H 110 H Lactic Acid Calcium Magnesium Iron TIBC Ferritin AST ALT Lactate Dehydrogenase Troponin T C-Reactive Protein Total Protein Albumin Prealbumin Cholesterol LDL Cholesterol Direct HDL Cholesterol Urine WBC (Auto) Vancomycin Trough Coronavirus (PCR) Crossmatch 07/23/19 07/23/19 07/24/19 06:00 23:15 04:40 WBC RBC Hgb Hct MCV MCH MCHC RDW Plt Count Lymph % (Auto) [place] % (Auto) Lymph # [place] # Baso # Seg Neutrophils % Seg Neuts % (Manual) Lymphocytes % (Manual) Monocytes % (Manual) Nucleated RBC % Seg Neutrophils # Seg Neutrophils # Man Lymphocytes # (Manual) Monocytes # (Manual) Basophils # (Manual) PT INR D-Dimer ABG pH ABG pO2 73.5 L ABG HCO3 27.0 H 28.5 H ABG O2 Saturation 94.5 L ABG Base Excess ABG Hemoglobin 9.4 L 8.9 L Oxyhemoglobin 94.0 L 92.7 L Sodium Potassium Chloride Carbon Dioxide BUN Creatinine Glucose POC Glucose 117 H Lactic Acid Calcium Magnesium Iron TIBC Ferritin AST ALT Lactate Dehydrogenase Troponin T C-Reactive Protein Total Protein Albumin Prealbumin Cholesterol LDL Cholesterol Direct HDL Cholesterol Urine WBC (Auto) Vancomycin Trough Coronavirus (PCR) Crossmatch 07/24/19 07/24/19 07/25/19 05:25 12:06 00:16 WBC RBC Hgb Hct MCV MCH MCHC RDW Plt Count Lymph % (Auto) [place] % (Auto) Lymph # [place] # Baso # Seg Neutrophils % Seg Neuts % (Manual) Lymphocytes % (Manual) Monocytes % (Manual) Nucleated RBC % Seg Neutrophils # Seg Neutrophils # Man Lymphocytes # (Manual) Monocytes # (Manual) Basophils # (Manual) PT INR D-Dimer ABG pH ABG pO2 ABG HCO3 ABG O2 Saturation ABG Base Excess ABG Hemoglobin Oxyhemoglobin Sodium Potassium Chloride Carbon Dioxide BUN Creatinine Glucose POC Glucose 114 H 108 H 106 H Lactic Acid Calcium Magnesium Iron TIBC Ferritin AST ALT Lactate Dehydrogenase Troponin T C-Reactive Protein Total Protein Albumin Prealbumin Cholesterol LDL Cholesterol Direct HDL Cholesterol Urine WBC (Auto) Vancomycin Trough Coronavirus (PCR) Crossmatch 07/25/19 07/25/19 07/25/19 05:14 05:14 05:17 WBC 17.8 H RBC 3.32 L Hgb 9.2 L Hct 28.6 L MCV MCH MCHC RDW 19.9 H Plt Count 994 H Lymph % (Auto) [place] % (Auto) Lymph # [place] # Baso # Seg Neutrophils % Seg Neuts % (Manual) 82.0 H Lymphocytes % (Manual) 5.0 L Monocytes % (Manual) Nucleated RBC % Seg Neutrophils # Seg Neutrophils # Man 14.6 H Lymphocytes # (Manual) 0.9 L Monocytes # (Manual) 1.2 H Basophils # (Manual) PT INR D-Dimer ABG pH ABG pO2 ABG HCO3 ABG O2 Saturation ABG Base Excess ABG Hemoglobin Oxyhemoglobin Sodium Potassium Chloride Carbon Dioxide BUN Creatinine 0.4 L Glucose 110 H POC Glucose 107 H Lactic Acid Calcium Magnesium Iron TIBC Ferritin AST ALT Lactate Dehydrogenase Troponin T C-Reactive Protein Total Protein Albumin Prealbumin Cholesterol LDL Cholesterol Direct HDL Cholesterol Urine WBC (Auto) Vancomycin Trough Coronavirus (PCR) Crossmatch 07/25/19 07/25/19 07/26/19 11:55 23:49 06:01 WBC RBC Hgb Hct MCV MCH MCHC RDW Plt Count Lymph % (Auto) [place] % (Auto) Lymph # [place] # Baso # Seg Neutrophils % Seg Neuts % (Manual) Lymphocytes % (Manual) Monocytes % (Manual) Nucleated RBC % Seg Neutrophils # Seg Neutrophils # Man Lymphocytes # (Manual) Monocytes # (Manual) Basophils # (Manual) PT INR D-Dimer ABG pH ABG pO2 ABG HCO3 ABG O2 Saturation ABG Base Excess ABG Hemoglobin Oxyhemoglobin Sodium Potassium Chloride Carbon Dioxide BUN Creatinine Glucose POC Glucose 123 H 118 H 106 H Lactic Acid Calcium Magnesium Iron TIBC Ferritin AST ALT Lactate Dehydrogenase Troponin T C-Reactive Protein Total Protein Albumin Prealbumin Cholesterol LDL Cholesterol Direct HDL Cholesterol Urine WBC (Auto) Vancomycin Trough Coronavirus (PCR) Crossmatch 07/26/19 07/27/19 07/27/19 17:02 00:28 05:16 WBC RBC Hgb Hct MCV MCH MCHC RDW Plt Count Lymph % (Auto) [place] % (Auto) Lymph # [place] # Baso # Seg Neutrophils % Seg Neuts % (Manual) Lymphocytes % (Manual) Monocytes % (Manual) Nucleated RBC % Seg Neutrophils # Seg Neutrophils # Man Lymphocytes # (Manual) Monocytes # (Manual) Basophils # (Manual) PT INR D-Dimer ABG pH ABG pO2 63.4 L ABG HCO3 31.3 H ABG O2 Saturation 92.7 L ABG Base Excess 6.3 H ABG Hemoglobin 7.6 L Oxyhemoglobin 90.9 L Sodium Potassium Chloride Carbon Dioxide BUN Creatinine Glucose POC Glucose 116 H 158 H Lactic Acid Calcium Magnesium Iron TIBC Ferritin AST ALT Lactate Dehydrogenase Troponin T C-Reactive Protein Total Protein Albumin Prealbumin Cholesterol LDL Cholesterol Direct HDL Cholesterol Urine WBC (Auto) Vancomycin Trough Coronavirus (PCR) Crossmatch 07/28/19 07/28/19 07/28/19 10:13 10:13 23:54 WBC 18.5 H RBC 3.20 L Hgb 8.8 L Hct 26.8 L MCV MCH 27 L MCHC RDW 19.9 H Plt Count 730 H Lymph % (Auto) [place] % (Auto) Lymph # [place] # Baso # Seg Neutrophils % Seg Neuts % (Manual) Lymphocytes % (Manual) Monocytes % (Manual) Nucleated RBC % Seg Neutrophils # Seg Neutrophils # Man Lymphocytes # (Manual) Monocytes # (Manual) Basophils # (Manual) PT INR D-Dimer ABG pH ABG pO2 ABG HCO3 ABG O2 Saturation ABG Base Excess ABG Hemoglobin Oxyhemoglobin Sodium Potassium 3.2 L Chloride 97.5 L Carbon Dioxide 31 H BUN Creatinine 0.5 L Glucose POC Glucose 120 H Lactic Acid Calcium Magnesium Iron TIBC Ferritin AST ALT Lactate Dehydrogenase Troponin T C-Reactive Protein Total Protein Albumin Prealbumin Cholesterol LDL Cholesterol Direct HDL Cholesterol Urine WBC (Auto) Vancomycin Trough Coronavirus (PCR) Crossmatch 07/29/19 07/29/19 07/29/19 11:57 17:43 Unknown WBC RBC Hgb Hct MCV MCH MCHC RDW Plt Count Lymph % (Auto) [place] % (Auto) Lymph # [place] # Baso # Seg Neutrophils % Seg Neuts % (Manual) Lymphocytes % (Manual) Monocytes % (Manual) Nucleated RBC % Seg Neutrophils # Seg Neutrophils # Man Lymphocytes # (Manual) Monocytes # (Manual) Basophils # (Manual) PT INR D-Dimer ABG pH ABG pO2 ABG HCO3 ABG O2 Saturation ABG Base Excess ABG Hemoglobin Oxyhemoglobin Sodium Potassium Chloride Carbon Dioxide BUN Creatinine Glucose POC Glucose 112 H Lactic Acid Calcium Magnesium Iron TIBC Ferritin AST ALT Lactate Dehydrogenase Troponin T C-Reactive Protein Total Protein Albumin Prealbumin Cholesterol LDL Cholesterol Direct HDL Cholesterol Urine WBC (Auto) 63.0 H Vancomycin Trough Coronavirus (PCR) Positive A Crossmatch 07/30/19 07/30/19 07/30/19 00:20 04:35 04:35 WBC 24.3 H RBC 3.12 L Hgb 8.5 L Hct 26.3 L MCV MCH 27 L MCHC RDW 20.2 H Plt Count 550 H Lymph % (Auto) [place] % (Auto) Lymph # [place] # Baso # Seg Neutrophils % Seg Neuts % (Manual) Lymphocytes % (Manual) Monocytes % (Manual) Nucleated RBC % Seg Neutrophils # Seg Neutrophils # Man Lymphocytes # (Manual) Monocytes # (Manual) Basophils # (Manual) PT INR D-Dimer ABG pH ABG pO2 ABG HCO3 ABG O2 Saturation ABG Base Excess ABG Hemoglobin Oxyhemoglobin Sodium Potassium 3.0 L Chloride 96.3 L Carbon Dioxide 32 H BUN Creatinine 0.5 L Glucose POC Glucose 106 H Lactic Acid Calcium Magnesium Iron TIBC Ferritin AST ALT Lactate Dehydrogenase Troponin T C-Reactive Protein Total Protein Albumin Prealbumin Cholesterol LDL Cholesterol Direct HDL Cholesterol Urine WBC (Auto) Vancomycin Trough Coronavirus (PCR) Crossmatch 07/31/19 07/31/19 07/31/19 04:42 04:42 11:33 WBC 23.8 H RBC 3.10 L Hgb 8.4 L Hct 26.1 L MCV MCH 27 L MCHC RDW 19.6 H Plt Count 561 H Lymph % (Auto) [place] % (Auto) Lymph # [place] # Baso # Seg Neutrophils % Seg Neuts % (Manual) Lymphocytes % (Manual) Monocytes % (Manual) Nucleated RBC % Seg Neutrophils # Seg Neutrophils # Man Lymphocytes # (Manual) Monocytes # (Manual) Basophils # (Manual) PT INR D-Dimer ABG pH ABG pO2 ABG HCO3 ABG O2 Saturation ABG Base Excess ABG Hemoglobin Oxyhemoglobin Sodium 135 L Potassium Chloride 93.9 L Carbon Dioxide 32 H BUN Creatinine 0.4 L Glucose POC Glucose 116 H Lactic Acid Calcium Magnesium Iron TIBC Ferritin AST ALT Lactate Dehydrogenase Troponin T C-Reactive Protein Total Protein Albumin 1.6 L Prealbumin 0.037 L Cholesterol LDL Cholesterol Direct HDL Cholesterol Urine WBC (Auto) Vancomycin Trough Coronavirus (PCR) Crossmatch 07/31/19 08/01/19 08/01/19 23:33 04:57 04:57 WBC 26.7 H RBC 3.12 L Hgb 8.5 L Hct 26.3 L MCV MCH 27 L MCHC RDW 19.2 H Plt Count 602 H Lymph % (Auto) [place] % (Auto) Lymph # [place] # Baso # Seg Neutrophils % Seg Neuts % (Manual) 93.0 H Lymphocytes % (Manual) 2.0 L Monocytes % (Manual) Nucleated RBC % Seg Neutrophils # Seg Neutrophils # Man 24.8 H Lymphocytes # (Manual) 0.5 L Monocytes # (Manual) 1.1 H Basophils # (Manual) PT INR D-Dimer ABG pH ABG pO2 ABG HCO3 ABG O2 Saturation ABG Base Excess ABG Hemoglobin Oxyhemoglobin Sodium 132 L Potassium Chloride 93.8 L Carbon Dioxide 31 H BUN Creatinine 0.3 L Glucose POC Glucose 148 H Lactic Acid Calcium 8.1 L Magnesium Iron TIBC Ferritin AST ALT Lactate Dehydrogenase Troponin T C-Reactive Protein Total Protein Albumin Prealbumin Cholesterol LDL Cholesterol Direct HDL Cholesterol Urine WBC (Auto) Vancomycin Trough Coronavirus (PCR) Crossmatch 08/01/19 08/02/19 08/02/19 12:16 00:22 05:24 WBC RBC Hgb Hct MCV MCH MCHC RDW Plt Count Lymph % (Auto) [place] % (Auto) Lymph # [place] # Baso # Seg Neutrophils % Seg Neuts % (Manual) Lymphocytes % (Manual) Monocytes % (Manual) Nucleated RBC % Seg Neutrophils # Seg Neutrophils # Man Lymphocytes # (Manual) Monocytes # (Manual) Basophils # (Manual) PT INR D-Dimer ABG pH ABG pO2 ABG HCO3 ABG O2 Saturation ABG Base Excess ABG Hemoglobin Oxyhemoglobin Sodium Potassium Chloride Carbon Dioxide BUN Creatinine Glucose POC Glucose 120 H 119 H 113 H Lactic Acid Calcium Magnesium Iron TIBC Ferritin AST ALT Lactate Dehydrogenase Troponin T C-Reactive Protein Total Protein Albumin Prealbumin Cholesterol LDL Cholesterol Direct HDL Cholesterol Urine WBC (Auto) Vancomycin Trough Coronavirus (PCR) Crossmatch 08/03/19 08/03/19 08/03/19 05:20 12:01 23:48 WBC RBC Hgb Hct MCV MCH MCHC RDW Plt Count Lymph % (Auto) [place] % (Auto) Lymph # [place] # Baso # Seg Neutrophils % Seg Neuts % (Manual) Lymphocytes % (Manual) Monocytes % (Manual) Nucleated RBC % Seg Neutrophils # Seg Neutrophils # Man Lymphocytes # (Manual) Monocytes # (Manual) Basophils # (Manual) PT INR D-Dimer ABG pH ABG pO2 ABG HCO3 ABG O2 Saturation ABG Base Excess ABG Hemoglobin Oxyhemoglobin Sodium Potassium Chloride Carbon Dioxide BUN Creatinine Glucose POC Glucose 118 H 106 H 120 H Lactic Acid Calcium Magnesium Iron TIBC Ferritin AST ALT Lactate Dehydrogenase Troponin T C-Reactive Protein Total Protein Albumin Prealbumin Cholesterol LDL Cholesterol Direct HDL Cholesterol Urine WBC (Auto) Vancomycin Trough Coronavirus (PCR) Crossmatch 08/04/19 08/04/19 08/04/19 05:38 05:38 06:29 WBC 26.1 H RBC 2.77 L Hgb 7.5 L Hct 23.2 L MCV MCH 27 L MCHC RDW 19.2 H Plt Count 648 H Lymph % (Auto) [place] % (Auto) Lymph # [place] # Baso # Seg Neutrophils % Seg Neuts % (Manual) 90.5 H Lymphocytes % (Manual) 3.5 L Monocytes % (Manual) Nucleated RBC % Seg Neutrophils # Seg Neutrophils # Man 23.6 H Lymphocytes # (Manual) 0.9 L Monocytes # (Manual) 1.2 H Basophils # (Manual) PT INR D-Dimer ABG pH ABG pO2 ABG HCO3 ABG O2 Saturation ABG Base Excess ABG Hemoglobin Oxyhemoglobin Sodium 132 L Potassium 3.4 L D Chloride 92.7 L Carbon Dioxide 33 H BUN Creatinine 0.2 L Glucose POC Glucose 108 H Lactic Acid Calcium 8.1 L Magnesium Iron TIBC Ferritin AST ALT Lactate Dehydrogenase Troponin T C-Reactive Protein Total Protein Albumin Prealbumin Cholesterol LDL Cholesterol Direct HDL Cholesterol Urine WBC (Auto) Vancomycin Trough Coronavirus (PCR) Crossmatch 08/04/19 08/05/19 08/05/19 12:30 04:58 04:58 WBC 21.0 H RBC 2.63 L Hgb 7.2 L Hct 21.9 L MCV 83 L MCH 27 L MCHC RDW 18.9 H Plt Count 691 H Lymph % (Auto) [place] % (Auto) Lymph # [place] # Baso # Seg Neutrophils % Seg Neuts % (Manual) 86.0 H Lymphocytes % (Manual) 3.0 L Monocytes % (Manual) 10.0 H Nucleated RBC % Seg Neutrophils # Seg Neutrophils # Man 18.1 H Lymphocytes # (Manual) 0.6 L Monocytes # (Manual) 2.1 H Basophils # (Manual) PT INR D-Dimer ABG pH ABG pO2 ABG HCO3 ABG O2 Saturation ABG Base Excess ABG Hemoglobin Oxyhemoglobin Sodium 134 L Potassium 3.2 L Chloride 93.2 L Carbon Dioxide 34 H BUN 8 L Creatinine 0.3 L Glucose POC Glucose 138 H Lactic Acid Calcium 8.1 L Magnesium Iron TIBC Ferritin AST ALT Lactate Dehydrogenase Troponin T C-Reactive Protein Total Protein Albumin Prealbumin Cholesterol LDL Cholesterol Direct HDL Cholesterol Urine WBC (Auto) Vancomycin Trough Coronavirus (PCR) Crossmatch 08/05/19 08/05/19 08/05/19 11:53 17:57 23:58 WBC RBC Hgb Hct MCV MCH MCHC RDW Plt Count Lymph % (Auto) [place] % (Auto) Lymph # [place] # Baso # Seg Neutrophils % Seg Neuts % (Manual) Lymphocytes % (Manual) Monocytes % (Manual) Nucleated RBC % Seg Neutrophils # Seg Neutrophils # Man Lymphocytes # (Manual) Monocytes # (Manual) Basophils # (Manual) PT INR D-Dimer ABG pH ABG pO2 ABG HCO3 ABG O2 Saturation ABG Base Excess ABG Hemoglobin Oxyhemoglobin Sodium Potassium Chloride Carbon Dioxide BUN Creatinine Glucose POC Glucose 106 H 111 H 116 H Lactic Acid Calcium Magnesium Iron TIBC Ferritin AST ALT Lactate Dehydrogenase Troponin T C-Reactive Protein Total Protein Albumin Prealbumin Cholesterol LDL Cholesterol Direct HDL Cholesterol Urine WBC (Auto) Vancomycin Trough Coronavirus (PCR) Crossmatch 08/06/19 08/06/19 08/06/19 04:11 04:11 06:04 WBC 20.8 H RBC 2.80 L Hgb 7.6 L Hct 23.5 L MCV MCH 27 L MCHC RDW 19.0 H Plt Count 723 H Lymph % (Auto) [place] % (Auto) Lymph # [place] # Baso # Seg Neutrophils % Seg Neuts % (Manual) 88.0 H Lymphocytes % (Manual) 3.0 L Monocytes % (Manual) Nucleated RBC % Seg Neutrophils # Seg Neutrophils # Man 18.3 H Lymphocytes # (Manual) 0.6 L Monocytes # (Manual) Basophils # (Manual) 0.2 H PT INR D-Dimer ABG pH ABG pO2 ABG HCO3 ABG O2 Saturation ABG Base Excess ABG Hemoglobin Oxyhemoglobin Sodium Potassium 3.4 L Chloride 95.2 L Carbon Dioxide 32 H BUN Creatinine 0.3 L Glucose POC Glucose 108 H Lactic Acid Calcium 8.2 L Magnesium Iron TIBC Ferritin AST ALT Lactate Dehydrogenase Troponin T C-Reactive Protein Total Protein Albumin Prealbumin Cholesterol LDL Cholesterol Direct HDL Cholesterol Urine WBC (Auto) Vancomycin Trough Coronavirus (PCR) Crossmatch 08/06/19 08/06/19 08/07/19 12:23 17:13 00:21 WBC RBC Hgb Hct MCV MCH MCHC RDW Plt Count Lymph % (Auto) [place] % (Auto) Lymph # [place] # Baso # Seg Neutrophils % Seg Neuts % (Manual) Lymphocytes % (Manual) Monocytes % (Manual) Nucleated RBC % Seg Neutrophils # Seg Neutrophils # Man Lymphocytes # (Manual) Monocytes # (Manual) Basophils # (Manual) PT INR D-Dimer ABG pH ABG pO2 ABG HCO3 ABG O2 Saturation ABG Base Excess ABG Hemoglobin Oxyhemoglobin Sodium Potassium Chloride Carbon Dioxide BUN Creatinine Glucose POC Glucose 112 H 132 H 147 H Lactic Acid Calcium Magnesium Iron TIBC Ferritin AST ALT Lactate Dehydrogenase Troponin T C-Reactive Protein Total Protein Albumin Prealbumin Cholesterol LDL Cholesterol Direct HDL Cholesterol Urine WBC (Auto) Vancomycin Trough Coronavirus (PCR) Crossmatch 08/07/19 08/07/19 08/07/19 05:16 05:23 05:23 WBC 30.3 H RBC 2.69 L Hgb 7.1 L Hct 22.2 L MCV 83 L MCH 27 L MCHC RDW 19.1 H Plt Count 650 H Lymph % (Auto) [place] % (Auto) Lymph # [place] # Baso # Seg Neutrophils % Seg Neuts % (Manual) 88.0 H Lymphocytes % (Manual) 5.0 L Monocytes % (Manual) Nucleated RBC % Seg Neutrophils # Seg Neutrophils # Man 26.7 H Lymphocytes # (Manual) Monocytes # (Manual) 2.1 H Basophils # (Manual) PT INR D-Dimer ABG pH ABG pO2 ABG HCO3 ABG O2 Saturation ABG Base Excess ABG Hemoglobin Oxyhemoglobin Sodium 135 L Potassium 3.4 L Chloride 95.4 L Carbon Dioxide 32 H BUN Creatinine 0.4 L Glucose 120 H POC Glucose 120 H Lactic Acid Calcium 7.7 L Magnesium Iron TIBC Ferritin AST ALT Lactate Dehydrogenase Troponin T C-Reactive Protein Total Protein Albumin Prealbumin Cholesterol LDL Cholesterol Direct HDL Cholesterol Urine WBC (Auto) Vancomycin Trough Coronavirus (PCR) Crossmatch 08/07/19 08/07/19 08/07/19 10:24 10:24 11:10 WBC RBC Hgb Hct MCV MCH MCHC RDW Plt Count Lymph % (Auto) [place] % (Auto) Lymph # [place] # Baso # Seg Neutrophils % Seg Neuts % (Manual) Lymphocytes % (Manual) Monocytes % (Manual) Nucleated RBC % Seg Neutrophils # Seg Neutrophils # Man Lymphocytes # (Manual) Monocytes # (Manual) Basophils # (Manual) PT INR D-Dimer 1808.06 H ABG pH ABG pO2 73.3 L ABG HCO3 33.9 H ABG O2 Saturation ABG Base Excess 9.0 H ABG Hemoglobin 6.3 L Oxyhemoglobin 94.3 L Sodium Potassium Chloride Carbon Dioxide BUN Creatinine Glucose POC Glucose Lactic Acid Calcium Magnesium Iron TIBC Ferritin AST ALT Lactate Dehydrogenase Troponin T C-Reactive Protein 11.10 H Total Protein Albumin Prealbumin Cholesterol LDL Cholesterol Direct HDL Cholesterol Urine WBC (Auto) Vancomycin Trough Coronavirus (PCR) Crossmatch 08/07/19 08/08/19 08/08/19 12:01 04:41 04:41 WBC 22.1 H RBC 2.82 L Hgb 7.7 L Hct 23.6 L MCV MCH 27 L MCHC RDW 19.1 H Plt Count 722 H Lymph % (Auto) [place] % (Auto) Lymph # [place] # Baso # Seg Neutrophils % Seg Neuts % (Manual) 90.0 H Lymphocytes % (Manual) 3.0 L Monocytes % (Manual) Nucleated RBC % Seg Neutrophils # Seg Neutrophils # Man 19.9 H Lymphocytes # (Manual) 0.7 L Monocytes # (Manual) 1.3 H Basophils # (Manual) PT INR D-Dimer ABG pH ABG pO2 ABG HCO3 ABG O2 Saturation ABG Base Excess ABG Hemoglobin Oxyhemoglobin Sodium 136 L Potassium Chloride 97.8 L Carbon Dioxide BUN Creatinine 0.3 L Glucose 105 H POC Glucose 130 H Lactic Acid Calcium 7.8 L Magnesium Iron TIBC Ferritin AST ALT Lactate Dehydrogenase Troponin T C-Reactive Protein Total Protein Albumin Prealbumin Cholesterol LDL Cholesterol Direct HDL Cholesterol Urine WBC (Auto) Vancomycin Trough Coronavirus (PCR) Crossmatch 08/08/19 08/08/19 08/09/19 11:46 18:35 00:12 WBC RBC Hgb Hct MCV MCH MCHC RDW Plt Count Lymph % (Auto) [place] % (Auto) Lymph # [place] # Baso # Seg Neutrophils % Seg Neuts % (Manual) Lymphocytes % (Manual) Monocytes % (Manual) Nucleated RBC % Seg Neutrophils # Seg Neutrophils # Man Lymphocytes # (Manual) Monocytes # (Manual) Basophils # (Manual) PT INR D-Dimer ABG pH ABG pO2 ABG HCO3 ABG O2 Saturation ABG Base Excess ABG Hemoglobin Oxyhemoglobin Sodium Potassium Chloride Carbon Dioxide BUN Creatinine Glucose POC Glucose 117 H 117 H 117 H Lactic Acid Calcium Magnesium Iron TIBC Ferritin AST ALT Lactate Dehydrogenase Troponin T C-Reactive Protein Total Protein Albumin Prealbumin Cholesterol LDL Cholesterol Direct HDL Cholesterol Urine WBC (Auto) Vancomycin Trough Coronavirus (PCR) Crossmatch 08/09/19 08/09/19 08/09/19 05:33 12:22 17:48 WBC RBC Hgb Hct MCV MCH MCHC RDW Plt Count Lymph % (Auto) [place] % (Auto) Lymph # [place] # Baso # Seg Neutrophils % Seg Neuts % (Manual) Lymphocytes % (Manual) Monocytes % (Manual) Nucleated RBC % Seg Neutrophils # Seg Neutrophils # Man Lymphocytes # (Manual) Monocytes # (Manual) Basophils # (Manual) PT INR D-Dimer ABG pH ABG pO2 ABG HCO3 ABG O2 Saturation ABG Base Excess ABG Hemoglobin Oxyhemoglobin Sodium Potassium Chloride Carbon Dioxide BUN Creatinine Glucose POC Glucose 119 H 133 H 123 H Lactic Acid Calcium Magnesium Iron TIBC Ferritin AST ALT Lactate Dehydrogenase Troponin T C-Reactive Protein Total Protein Albumin Prealbumin Cholesterol LDL Cholesterol Direct HDL Cholesterol Urine WBC (Auto) Vancomycin Trough Coronavirus (PCR) Crossmatch 08/09/19 08/09/19 08/10/19 17:59 18:15 00:02 WBC RBC Hgb 6.7 L Hct 20.4 L MCV MCH MCHC RDW Plt Count Lymph % (Auto) [place] % (Auto) Lymph # [place] # Baso # Seg Neutrophils % Seg Neuts % (Manual) Lymphocytes % (Manual) Monocytes % (Manual) Nucleated RBC % Seg Neutrophils # Seg Neutrophils # Man Lymphocytes # (Manual) Monocytes # (Manual) Basophils # (Manual) PT INR D-Dimer ABG pH ABG pO2 ABG HCO3 ABG O2 Saturation ABG Base Excess ABG Hemoglobin Oxyhemoglobin Sodium Potassium Chloride Carbon Dioxide BUN Creatinine Glucose POC Glucose 124 H Lactic Acid Calcium Magnesium Iron TIBC Ferritin AST ALT Lactate Dehydrogenase Troponin T C-Reactive Protein Total Protein Albumin Prealbumin Cholesterol LDL Cholesterol Direct HDL Cholesterol Urine WBC (Auto) Vancomycin Trough Coronavirus (PCR) Crossmatch See Detail 08/10/19 08/10/19 08/10/19 05:47 08:00 08:00 WBC 16.9 H RBC 2.94 L Hgb 8.2 L Hct 24.9 L MCV MCH MCHC RDW 17.0 H Plt Count 661 H Lymph % (Auto) [place] % (Auto) Lymph # [place] # Baso # Seg Neutrophils % Seg Neuts % (Manual) Lymphocytes % (Manual) Monocytes % (Manual) Nucleated RBC % Seg Neutrophils # Seg Neutrophils # Man Lymphocytes # (Manual) Monocytes # (Manual) Basophils # (Manual) PT INR D-Dimer ABG pH ABG pO2 ABG HCO3 ABG O2 Saturation ABG Base Excess ABG Hemoglobin Oxyhemoglobin Sodium Potassium Chloride Carbon Dioxide BUN Creatinine 0.3 L Glucose 116 H POC Glucose 148 H Lactic Acid Calcium 7.7 L Magnesium Iron TIBC Ferritin AST ALT Lactate Dehydrogenase Troponin T C-Reactive Protein Total Protein Albumin Prealbumin Cholesterol LDL Cholesterol Direct HDL Cholesterol Urine WBC (Auto) Vancomycin Trough Coronavirus (PCR) Crossmatch 08/10/19 08/10/19 08/10/19 12:38 18:06 23:56 WBC RBC Hgb Hct MCV MCH MCHC RDW Plt Count Lymph % (Auto) [place] % (Auto) Lymph # [place] # Baso # Seg Neutrophils % Seg Neuts % (Manual) Lymphocytes % (Manual) Monocytes % (Manual) Nucleated RBC % Seg Neutrophils # Seg Neutrophils # Man Lymphocytes # (Manual) Monocytes # (Manual) Basophils # (Manual) PT INR D-Dimer ABG pH ABG pO2 ABG HCO3 ABG O2 Saturation ABG Base Excess ABG Hemoglobin Oxyhemoglobin Sodium Potassium Chloride Carbon Dioxide BUN Creatinine Glucose POC Glucose 113 H 126 H 115 H Lactic Acid Calcium Magnesium Iron TIBC Ferritin AST ALT Lactate Dehydrogenase Troponin T C-Reactive Protein Total Protein Albumin Prealbumin Cholesterol LDL Cholesterol Direct HDL Cholesterol Urine WBC (Auto) Vancomycin Trough Coronavirus (PCR) Crossmatch 08/10/19 08/11/19 08/12/19 Unknown 18:10 03:30 WBC 14.4 H RBC 2.58 L Hgb 7.4 L Hct 22.1 L MCV MCH MCHC RDW 17.4 H Plt Count 786 H Lymph % (Auto) [place] % (Auto) Lymph # [place] # Baso # Seg Neutrophils % Seg Neuts % (Manual) Lymphocytes % (Manual) Monocytes % (Manual) Nucleated RBC % Seg Neutrophils # Seg Neutrophils # Man Lymphocytes # (Manual) Monocytes # (Manual) Basophils # (Manual) PT INR D-Dimer ABG pH ABG pO2 ABG HCO3 ABG O2 Saturation ABG Base Excess ABG Hemoglobin Oxyhemoglobin Sodium Potassium Chloride Carbon Dioxide BUN Creatinine Glucose POC Glucose 106 H Lactic Acid Calcium Magnesium Iron TIBC Ferritin AST ALT Lactate Dehydrogenase Troponin T C-Reactive Protein Total Protein Albumin Prealbumin Cholesterol LDL Cholesterol Direct HDL Cholesterol Urine WBC (Auto) Vancomycin Trough Coronavirus (PCR) Positive A Crossmatch 08/12/19 08/12/19 08/13/19 03:30 12:08 05:25 WBC RBC Hgb Hct MCV MCH MCHC RDW Plt Count Lymph % (Auto) [place] % (Auto) Lymph # [place] # Baso # Seg Neutrophils % Seg Neuts % (Manual) Lymphocytes % (Manual) Monocytes % (Manual) Nucleated RBC % Seg Neutrophils # Seg Neutrophils # Man Lymphocytes # (Manual) Monocytes # (Manual) Basophils # (Manual) PT INR D-Dimer ABG pH ABG pO2 ABG HCO3 ABG O2 Saturation ABG Base Excess ABG Hemoglobin Oxyhemoglobin Sodium Potassium Chloride Carbon Dioxide BUN 7 L Creatinine 0.3 L Glucose 117 H POC Glucose 112 H 126 H Lactic Acid Calcium 7.8 L Magnesium Iron TIBC Ferritin AST ALT Lactate Dehydrogenase Troponin T C-Reactive Protein Total Protein Albumin Prealbumin Cholesterol LDL Cholesterol Direct HDL Cholesterol Urine WBC (Auto) Vancomycin Trough Coronavirus (PCR) Crossmatch 08/13/19 11:36 WBC RBC Hgb Hct MCV MCH MCHC RDW Plt Count Lymph % (Auto) [place] % (Auto) Lymph # [place] # Baso # Seg Neutrophils % Seg Neuts % (Manual) Lymphocytes % (Manual) Monocytes % (Manual) Nucleated RBC % Seg Neutrophils # Seg Neutrophils # Man Lymphocytes # (Manual) Monocytes # (Manual) Basophils # (Manual) PT INR D-Dimer ABG pH ABG pO2 ABG HCO3 ABG O2 Saturation ABG Base Excess ABG Hemoglobin Oxyhemoglobin Sodium Potassium Chloride Carbon Dioxide BUN Creatinine Glucose POC Glucose 143 H Lactic Acid Calcium Magnesium Iron TIBC Ferritin AST ALT Lactate Dehydrogenase Troponin T C-Reactive Protein Total Protein Albumin Prealbumin Cholesterol LDL Cholesterol Direct HDL Cholesterol Urine WBC (Auto) Vancomycin Trough Coronavirus (PCR) Crossmatch Allied health notes reviewed: nursing
[2019-08-13 17:49] LABS: ABG Base Excess 3.5 mmol/L (-2.0-3.0); ABG HCO3 28.5 mmol/L (20.0-26.0); ABG Methemoglobin 0.4 % (0.0-1.5); ABG Oxygen Saturation 97.8 % (95.0-99.0); ABG PCO2 46.2 mm Hg; ABG PH 7.408 pH Units (7.350-7.450)
[2019-08-14] MEDS: PIPERACIL/TAZOBACTA 4.5/NS 100 4.5 GM/100 ML VIAL IV SCH ×4 (00:07→18:47)
[2019-08-14] MEDS: INSULIN LISPRO 100 UNIT/ML SUB-Q SCH ×4 (00:11→18:00)
[2019-08-14 05:53] LABS: Hematocrit 23.9 % (35.5-45.6); Hemoglobin 7.8 gm/dl (11.8-15.2); Mean Corpuscular HGB Conc 33 % (32-34); Mean Corpuscular Volume 87 fl (84-94); Platelet Count 896 K/mm3 (140-440); Red Blood Count 2.76 M/mm3 (3.65-5.03); Red Cell Distribution Width 18.7 % (13.2-15.2)
[2019-08-14 06:20] LABS: BUN/Creatinine Ratio 20; Blood Urea Nitrogen 6 mg/dL (9-20); Calcium 8.2 mg/dL (8.4-10.2); Hemolysis Index 1
--- NOTE | 2019-08-14 09:41 | Progress Note ---
Assessment and Plan Assessment and plan: --COVid positive pneumonia with severe sepsis Received Plaquenil and cefepime, monitor off antibiotics ID following --Septic shock: On Levophed Persistent hypotension, titrate to systolic blood pressure more than 100 -- Acute respiratory Failure with Hypoxia Due to bilateral PNA with COVID 19 infection. On ventilatory support, unable to wean Pulmonary critical following --COPD with exacerbation Likely due to COVID-19 pneumonia Continue scheduled nebs --Anemia, Microcytic persistent s/p total 3 unit of PRBC, today Hb today 9.1 --Pressure Ulcers: POA buttocks, right lateral foot area wound and supportive care --Hyponatremia, resolved --DM type 2: Accu-Chek SCC tube feeding, insulin as needed --h/o HTN Essential, now hypotensive On Levophed --Seizure D/o/CVA/immobility/BIpolar D/o/SCZ Seizure precautions, antiepileptic medications --Severe PCM, TF supportive care, dietary following patient is DNR- Called and verified information Very poor prognosis, Recommend hospice 07/04: COVID +ve, start on plaquinil, called no answer 07/05: transfuse one unit PRBC, Hb dropped to ~6, called and updated 07/06; H&H stable, serum chemistry improved. On mechanical ventilation with high inflammatory markers. Continue Plaquenil and empiric antibiotics. ID following, prognosis remains guarded and extremely poor. 07/07: On mechanical ventilation with high inflammatory markers. Continue Plaquenil and empiric antibiotics. ID following, prognosis remains guarded and extremely poor. 07/08: Called today and verified the CODE STATUS. Patient remains DNR. He is still intubated, with poor prognosis. Continue to follow inflammatory markers. 07/09 wean off from vent as tolerated, completed empiric antibiotic and Plaquenil 07/10 wean off from vent as tolerated. poor prognosis 07/11 hb 6.7 today, transfuse one PRBC. wean off from vent as tolerated. poor prognosis 07/12 remains critically on vent. Hb 6.9 07/13 Hb dropped to 6.6, transfuse 1 unit of PRBC, remains on vent critically ill Hypotensive, fluid bolus, if no improvement start Levophed 07/14; remains anemic with hemoglobin of 6.8, received total 3 units of PRBC Additional 1 unit of PRBC today, stool for occult blood to rule out GI causes Started back on Levophed due to hypotension 07/15; patient remains critically ill, hypotensive on Levophed 07/16: Today remains intubated on vent, persistent hypotension on Levophed 07/17; clinically no change, pressor dependent[on Levophed] DNR status 07/18: Patient remains hypotensive requiring Levophed, intubated on vent Unable to wean, critically ill. DNR 07/20/2019 Patient remains hypotensive requiring Levophed, intubated on vent. Patient currently with AC mode ventilation, rate 20, tidal volume 500, FiO2 40% and PEEP 6. Patient is a poor prognosis and apparently was on hospice recently. 07/21/2019. Patient with PEG tube that was clogged yesterday. surgery evaluated the patient and noted Very long PEG tubing with thick material inside. The enti re tube was stripped and a large amount of formed tube feed was expressed. The tube was then flushed with sprite and flushed easily. Tube clamped. Patient currently with AC mode ventilation, rate 20, tidal volume 500, FiO2 40% and PEEP 6. Patient is a poor prognosis and apparently was on hospice recently. 07/22/2019. Patient currently with AC mode ventilation, rate 20, tidal volume 500, FiO2 30% and PEEP 6. Patient on sedation with fentanyl drip. Continue Levophed to maintain MAP greater than 65. Patient is a poor prognosis and apparently was on hospice recently. 07/23/2019. Patient currently with AC mode ventilation, rate 20, tidal volume 500, FiO2 30% and PEEP 6. Patient on sedation with fentanyl drip. Continue Levophed to maintain MAP greater than 65. Patient is a poor prognosis and apparently was on hospice recently. 07/24/2019 Patient with Covid-19 infection with pneumonia, acute respiratory failure, intubated on ventilator. No more fever. Continue current management. 07/25/2019 Patient with Covid-19 infection with pneumonia, acute respiratory failure, intubated on ventilator. fever is now resolved. Sedated with propofol 07/26/2019 Patient with covid-19 infection. Still intubated, on vent. 07/27/2019 Patient with Covid-19. he is still critically ill. patient has DNR order. 07/28/2019 Patient with Covid-19 infection. Will repeat labs today. Surgeon consulted for tracheostomy. 07/29/2019 Patient with Covid-19. hypokalemia yesterday, replaced. Will recheck labs in am. 07/30/2019 patient with Covid-19 infection with acute respiratory failure. He is intubated on ventilator. has hypokalemia. replace and recheck BMP in am. patient has UTI, started on Cefepime. 07/31/2019. patient with Covid-19 infection with acute respiratory failure. He is intubated on ventilator. Repeat chest x-ray reveals decreased infiltrates. urology consultation and wound care consult per ID. Follow-up urine and blood culture. Tracheostomy per surgery. 08/01/2019. patient with Covid-19 infection with acute respiratory failure. He is intubated on ventilator. Patient currently with PSV trials. Pressure s upport 18/PEEP 6. FiO2 30%. Tracheostomy to be placed per surgery wound COVID testing negative. 08/02/2019. Patient with COVID-19 infection and acute respiratory failure on mechanical ventilation. Continue with PSVT trials with pressure support increased to 20. Follow-up serial chest x-ray. Continue Fentanyl infusion and wean sedation as tolerated. Continue daily spontaneous breathing trials. 08/03/2019. Patient with COVID-19 infection and acute respiratory failure on mechanical ventilation. Continue with PSV trials with pressure support increased to 20. Follow-up serial chest x-ray. Continue Fentanyl infusion and wean sedation as tolerated. Continue daily spontaneous breathing trials. 08/04/2019. Patient with COVID-19 infection and acute respiratory failure on mechanical ventilation. Continue with PSV trials 14/6, FiO2 30%. Continue Fentanyl infusion and wean sedation as tolerated. Continue daily spontaneous breathing trials. Tracheostomy placement to be scheduled when COVID testing is negative per surgery. Monitor off antibiotics per ID recommendations 08/05/2019. Patient with COVID-19 infection and acute respiratory failure on mechanical ventilation. Patient currently on AC mode, rate 14, tidal volume 500, FiO2 30% and PEEP of 6. Continue PSV trials as tolerated. Tracheostomy placement to be scheduled when COVID testing is negative per surgery. Monitor off antibiotics per ID recommendations. 08/06/2019. Patient with COVID-19 infection and acute respiratory failure on mechanical ventilation. Patient currently on AC mode, rate 14, tidal volume 5 00, FiO2 30% and PEEP of 6. Continue PSV trials as tolerated. Tracheostomy placement to be scheduled when COVID testing is negative per surgery. ID restarted antibiotics with cefepime 2 g IV every 8 hours to cover for presumed Pseudomonas pneumonia. Follow-up chest x-ray and blood cultures. Repeat COVID testing 07/28 and positive. Repeat test tomorrow. 08/07/19 Patient with Covid-19, acute respiratory failure. He is still intubated on mechanical ventilator. For tracheostomy when Covid-19 test negative. Still having fever. Leukocytosis worse today, WBC 30.3. For CT Chest, Abdomen. 08/08/19 patient with Covid-19, acute respiratory failure. He is still critically ill, intubated. He is for tracheostomy after Covid-19 test negative. Fever improving. Temp 99.[address] Chest and Abdomen done yesterday pending. 08/09/2019 patient with Covid-19 infection, acute resp failure. Still intubated on ventilator. Fever of 100.3 this morning. I discussed with his Nurse 08/10/2019 Patient with Covid-19 infection. acute respirator failure. patient still in critical condition, intubated. 08/11/2019 Patient with Covid-19 infection, acute resp failure. He is still intubated on vent. 08/12/2019 Patient with Covid-19 infection, acute resp failure. He is still intubated on vent. Discussed with yesterday and gave update. Covid-19 test done 08/09 still positive. 08/13/2019 Patient with Covid-19 infection, acute resp failure. He is still intubated on vent. Discussed with 08/10 and gave update. Covid-19 test done 08/09 still positive. Fever of 101.8 last night 08/14/19: Remains on full ventilatory support. No clinical change The high probability of a clinically significant, sudden or life threatening deterioration of the [respiratory, CVS, FIELD TECHNICAL SUPPORT CONSULTANT] system(s) required my full and direct attention, intervention and personal management. The aggregate critical care time was [34] minutes. This time is in addition to time spent performing reported procedures but includes the fol lowing: [x] Data Review and interpretation [x] Patient assessment and monitoring of vital signs [x] Documentation [x] Medication orders and management History Interval history: Patient with Covid-19 infection Still intubated Hospitalist Physical - Physical exam Narrative exam: GEN: Not in acute distress, intubated HEENT: Normocephalic, atraumatic, Neck: supple, No JVD Lungs: Bilateral crackles, heart;S1 and S2 reg, no murmurs, rubs or gallop Abd:soft, non tender, non distended, normal bowel sounds,PEG tube Ext: No edema, no clubbing, no cyanosis, Neuro: Intubated, on ventilator,sedated - Constitutional Vitals: Temp Pulse Resp BP Pulse Ox 97.9 F 88 16 149/84 100 08/14/19 08:00 08/14/19 07:38 08/14/19 07:38 08/14/19 07:38 08/14/19 07:38 General appearance: Present: other (Orally intubated on vent) HEART Score - HEART Score Troponin: Troponin T 0.013 ng/mL (0.00-0.029) 07/04/19 07:05 Results - Labs CBC & Chem 7: 08/15/19 06:10 08/15/19 06:10 Labs: Laboratory Last Values WBC 14.3 K/mm3 (4.5-11.0) H 08/14/19 05:00 RBC 2.76 M/mm3 (3.65-5.03) L 08/14/19 05:00 Hgb 7.8 gm/dl (11.8-15.2) L 08/14/19 05:00 Hct 23.9 % (35.5-45.6) L 08/14/19 05:00 MCV 87 fl (84-94) 08/14/19 05:00 MCH 28 pg (28-32) 08/14/19 05:00 MCHC 33 % (32-34) 08/14/19 05:00 RDW 18.7 % (13.2-15.2) H 08/14/19 05:00 Plt Count 896 K/mm3 (140-440) H 08/14/19 05:00 Lymph % (Auto) 4.9 % (13.4-35.0) L 07/19/19 08:45 [place] % (Auto) 12.2 % (0.0-7.3) H 07/22/19 05:38 Eos % (Auto) 1.0 % (0.0-4.3) 07/19/19 08:45 Baso % (Auto) 0.5 % (0.0-1.8) 07/19/19 08:45 Lymph # 0.8 K/mm3 (1.2-5.4) L 07/19/19 08:45 [place] # 1.5 K/mm3 (0.0-0.8) H 07/22/19 05:38 Eos # 0.2 K/mm3 (0.0-0.4) 07/19/19 08:45 Baso # 0.1 K/mm3 (0.0-0.1) 07/19/19 08:45 Add Manual Diff Complete 08/08/19 04:41 Total Counted 100 08/08/19 04:41 Seg Neutrophils % 72.8 % (40.0-70.0) H 07/22/19 05:38 Seg Neuts % (Manual) 90.0 % (40.0-70.0) H 08/08/19 04:41 Band Neutrophils % 0 % 08/08/19 04:41 Lymphocytes % (Manual) 3.0 % (13.4-35.0) L 08/08/19 04:41 Reactive Lymphs % (Man) 0 % 08/08/19 04:41 Monocytes % (Manual) 6.0 % (0.0-7.3) 08/08/19 04:41 Eosinophils % (Manual) 1.0 % (0.0-4.3) 08/08/19 04:41 Basophils % (Manual) 0 % (0.0-1.8) 08/08/19 04:41 Metamyelocytes % 0 % 08/08/19 04:41 Myelocytes % 0 % 08/08/19 04:41 Promyelocytes % 0 % 08/08/19 04:41 Blast Cells % 0 % 08/08/19 04:41 Nucleated RBC % Not Reportable 08/08/19 04:41 Seg Neutrophils # 9.2 K/mm3 (1.8-7.7) H 07/22/19 05:38 Seg Neutrophils # Man 19.9 K/mm3 (1.8-7.7) H 08/08/19 04:41 Band Neutrophils # 0.0 K/mm3 08/08/19 04:41 Lymphocytes # (Manual) 0.7 K/mm3 (1.2-5.4) L 08/08/19 04:41 Abs React Lymphs (Man) 0.0 K/mm3 08/08/19 04:41 Monocytes # (Manual) 1.3 K/mm3 (0.0-0.8) H 08/08/19 04:41 Eosinophils # (Manual) 0.2 K/mm3 (0.0-0.4) 08/08/19 04:41 Basophils # (Manual) 0.0 K/mm3 (0.0-0.1) 08/08/19 04:41 Metamyelocytes # 0.0 K/mm3 08/08/19 04:41 Myelocytes # 0.0 K/mm3 08/08/19 04:41 Promyelocytes # 0.0 K/mm3 08/08/19 04:41 Blast Cells # 0.0 K/mm3 08/08/19 04:41 WBC Morphology Not Reportable 08/08/19 04:41 Hypersegmented Neuts Not Reportable 08/08/19 04:41 Hyposegmented Neuts Not Reportable 08/08/19 04:41 Hypogranular Neuts Not Reportable 08/08/19 04:41 Smudge Cells Not Reportable 08/08/19 04:41 Toxic Granulation Not Reportable 08/08/19 04:41 Toxic Vacuolation Not Reportable 08/08/19 04:41 Dohle Bodies Not Reportable 08/08/19 04:41 Pelger-Huet Anomaly Not Reportable 08/08/19 04:41 Mendy Rods Not Reportable 08/08/19 04:41 Platelet Estimate Consistent w auto 08/08/19 04:41 Clumped Platelets Not Reportable 08/08/19 04:41 Plt Clumps, EDTA Not Reportable 08/08/19 04:41 Large Platelets Not Reportable 08/08/19 04:41 Giant Platelets Not Reportable 08/08/19 04:41 Platelet Satelliting Not Reportable 08/08/19 04:41 Plt Morphology Comment Not Reportable 08/08/19 04:41 RBC Morphology Not Reportable 08/08/19 04:41 Dimorphic RBCs Not Reportable 08/08/19 04:41 Polychromasia Not Reportable 08/08/19 04:41 Hypochromasia Few 08/08/19 04:41 Poikilocytosis Not Reportable 08/08/19 04:41 Anisocytosis Rare 08/08/19 04:41 Microcytosis Rare 08/08/19 04:41 Macrocytosis Not Reportable 08/08/19 04:41 Spherocytes Not Reportable 08/08/19 04:41 Pappenheimer Bodies Not Reportable 08/08/19 04:41 Sickle Cells Not Reportable 08/08/19 04:41 Target Cells Not Reportable 08/08/19 04:41 Tear Drop Cells Not Reportable 08/08/19 04:41 Ovalocytes Rare 08/08/19 04:41 Stomatocytes Few 08/01/19 04:57 Helmet Cells Not Reportable 08/08/19 04:41 [place] Bodies Not Reportable 08/08/19 04:41 Glady Rings Not Reportable 08/08/19 04:41 Joanne Cells Not Reportable 08/08/19 04:41 Bite Cells Not Reportable 08/08/19 04:41 Crenated Cell Not Reportable 08/08/19 04:41 Elliptocytes Not Reportable 08/08/19 04:41 Acanthocytes (Spur) Not Reportable 08/08/19 04:41 Rouleaux Not Reportable 08/08/19 04:41 Hemoglobin C Crystals Not Reportable 08/08/19 04:41 Schistocytes Rare 08/08/19 04:41 Malaria parasites Not Reportable 08/08/19 04:41 Jeevan Bodies Not Reportable 08/08/19 04:41 Hem Pathologist Commnt No 08/08/19 04:41 PT 16.0 Sec. (12.2-14.9) H 07/03/19 22:20 INR 1.26 (0.87-1.13) H 07/03/19 22:20 D-Dimer 1808.06 ng/mlDDU (0-234) H 08/07/19 10:24 ABG pH 7.408 pH Units (7.350-7.450) 08/13/19 17:10 ABG pCO2 46.2 mm Hg 08/13/19 17:10 ABG pO2 105.0 mm Hg (80.0-90.0) H 08/13/19 17:10 ABG HCO3 28.5 mmol/L (20.0-26.0) H 08/13/19 17:10 ABG O2 Saturation 97.8 % (95.0-99.0) 08/13/19 17:10 ABG O2 Content 10.8 (0.0-44) 08/13/19 17:10 ABG Base Excess 3.5 mmol/L (-2.0-3.0) H 08/13/19 17:10 ABG Hemoglobin 7.8 gm/dl (14.0-18.0) L 08/13/19 17:10 ABG Carboxyhemoglobin 1.6 % (0.0-5.0) 08/13/19 17:10 ABG Methemoglobin 0.4 % (0.0-1.5) 08/13/19 17:10 Oxyhemoglobin 95.8 % (95.0-99.0) 08/13/19 17:10 FiO2 30 % 08/13/19 17:10 Sodium 137 mmol/L (137-145) 08/14/19 05:00 Potassium 3.6 mmol/L (3.6-5.0) 08/14/19 05:00 Chloride 99.1 mmol/L (98-107) 08/14/19 05:00 Carbon Dioxide 27 mmol/L (22-30) 08/14/19 05:00 Anion Gap 15 mmol/L 08/14/19 05:00 BUN 6 mg/dL (9-20) L 08/14/19 05:00 Creatinine 0.3 mg/dL (0.8-1.5) L 08/14/19 05:00 Estimated GFR > 60 ml/min 08/14/19 05:00 BUN/Creatinine Ratio 20 % 08/14/19 05:00 Glucose 82 mg/dL (75-100) 08/14/19 05:00 POC Glucose 128 (70-105) H 08/14/19 05:07 Osmolality 268 Mosm/kg 07/05/19 04:00 Lactic Acid 3.30 mmol/L (0.7-2.0) H* 07/04/19 07:05 Uric Acid 7.2 mg/dL (3.5-7.6) 07/05/19 04:00 Calcium 8.2 mg/dL (8.4-10.2) L 08/14/19 05:00 Phosphorus 3.60 mg/dL (2.5-4.5) 07/05/19 04:00 Magnesium 1.80 mg/dL (1.7-2.3) 07/11/19 05:14 Iron 9 ug/dL (49-181) L 07/04/19 07:05 TIBC 97 mcg/dL (250-450) L 07/04/19 07:05 Ferritin 360.4 ng/mL (13.0-400.0) 08/07/19 10:24 Total Bilirubin 0.20 mg/dL (0.1-1.2) 07/04/19 07:05 AST 73 units/L (5-40) H 07/04/19 07:05 ALT 91 units/L (7-56) H 07/04/19 07:05 Alkaline Phosphatase 114 units/L (35-129) 07/04/19 07:05 Ammonia 35.0 umol/L (25-60) 07/03/19 23:58 Lactate Dehydrogenase 144 units/L (91-180) 08/07/19 10:24 Troponin T 0.013 ng/mL (0.00-0.029) 07/04/19 07:05 C-Reactive Protein 11.10 mg/dL (0.00-1.30) H 08/07/19 10:24 Total Protein 5.5 g/dL (6.3-8.2) L 07/04/19 07:05 Albumin 1.6 g/dL (3.9-5) L 07/31/19 04:42 Albumin/Globulin Ratio 0.6 % 07/04/19 07:05 Prealbumin 0.037 g/L (0.200-0.400) L 07/31/19 04:42 Triglycerides 33 mg/dL (2-149) 07/03/19 19:57 Cholesterol 47 mg/dL (50-199) L 07/03/19 19:57 LDL Cholesterol Direct 25 mg/dL (50-130) L 07/03/19 19:57 HDL Cholesterol 20 mg/dL (40-59) L 07/03/19 19:57 Cholesterol/HDL Ratio 2.35 % 07/03/19 19:57 Procalcitonin 0.96 ng/mL (<0.15) 08/07/19 10:24 TSH 2.170 mlU/mL (0.270-4.200) 07/03/19 22:20 Total Cortisol 28.0 mcg/dL () 07/05/19 10:11 Urine Color Yellow (Yellow) 07/29/19 11:57 Urine Turbidity Clear (Clear) 07/29/19 11:57 Urine pH 7.0 (5.0-7.0) 07/29/19 11:57 Ur Specific [place] 1.012 (1.003-1.030) 07/29/19 11:57 Urine Protein <15 mg/dl mg/dL (Negative) 07/29/19 11:57 Urine Glucose (UA) Neg mg/dL (Negative) 07/29/19 11:57 Urine Ketones Neg mg/dL (Negative) 07/29/19 11:57 Urine Blood Sm (Negative) 07/29/19 11:57 Urine Nitrite Neg (Negative) 07/29/19 11:57 Urine Bilirubin Neg (Negative) 07/29/19 11:57 Urine Urobilinogen 4.0 mg/dL (<2.0) 07/29/19 11:57 Ur Leukocyte Esterase Mod (Negative) 07/29/19 11:57 Urine WBC (Auto) 63.0 /HPF (0.0-6.0) H 07/29/19 11:57 Urine RBC (Auto) 14.0 /HPF (0.0-6.0) 07/29/19 11:57 U Epithel Cells (Auto) < 1.0 /HPF (0-13.0) 07/29/19 11:57 Urine Bacteria (Auto) 1+ /HPF (Negative) 07/29/19 11:57 Urine WBC Clumps Few /HPF 07/03/19 21:13 Urine Mucus Few /HPF 07/03/19 21:13 Urine Osmolality 293 Mosm/kg 07/05/19 08:15 Vancomycin Trough 23.2 ug/mL (5.0-20.0) H 07/05/19 17:54 Urine Opiates Screen Presumptive negative 07/03/19 21:13 Urine Methadone Screen Presumptive negative 07/03/19 21:13 Ur Barbiturates Screen Presumptive negative 07/03/19 21:13 Ur Phencyclidine Scrn Presumptive negative 07/03/19 21:13 Ur Amphetamines Screen Presumptive negative 07/03/19 21:13 U Benzodiazepines Scrn Presumptive negative 07/03/19 21:13 Urine Cocaine Screen Presumptive negative 07/03/19 21:13 U Marijuana (THC) Screen Presumptive negative 07/03/19 21:13 Drugs of Abuse Note Disclamer 07/03/19 21:13 Plasma/Serum Alcohol < 0.01 % (0-0.07) 07/03/19 23:58 Coronavirus (PCR) Positive (Negative) A 08/10/19 Unknown Hepatitis A IgM Ab Non-reactive (NonReactive) 08/07/19 10:24 Hep Bs Antigen Non-reactive (Negative) 08/07/19 10:24 Hep B Core IgM Ab Non-reactive (NonReactive) 08/07/19 10:24 Hepatitis C Antibody Non-reactive (NonReactive) 08/07/19 10:24 Blood Type B POSITIVE 08/09/19 17:59 Antibody Screen Negative 08/09/19 17:59 Crossmatch See Detail 08/09/19 17:59 Wright/IV: Voiding Method Indwelling Catheter IV Catheter Type [Left Triple Lumen Cath Internal Jugular] IV Catheter Type [Left INT / Saline Lock Antecubital] IV Catheter Type [Left Forearm Peripheral IV ] IV Catheter Type [Left Upper Mid-line arm] IV Catheter Type [Right INT / Saline Lock Forearm] IV Catheter Type [Right Hand] INT / Saline Lock IV Catheter Type [Right CVL Femoral] IV Catheter Type [Left INT / Saline Lock External Jugular] Active Medications - Current Medications Current Medications: Generic Name Dose Route Start Last Admin Trade Name Freq PRN Reason Stop Dose Admin Acetaminophen 650 mg 07/04/19 04:24 08/05/19 17:40 Tylenol LA 650 mg Q6H PRN Administration Pain MILD(1-3)/Fever >100.5/MURO Acetaminophen 650 mg 07/10/19 04:00 08/12/19 21:05 Tylenol PO 650 mg Q6HR PRN Administration Pain, Mild (1-3) FEVER Lipase/Protease/Amylase 1 each 07/04/19 10:04 08/11/19 06:[address] 10,500 Unit FEEDTUBE 1 each PRN PRN Administration For Clogged Feeding Tube Aspirin 81 mg 07/05/19 10:00 08/13/19 09:19 Baby Aspirin PO 81 mg QDAY TAMMIE Administration Dextrose 50 ml 07/04/19 06:54 D50w (25gm) Syringe IV Q30MIN PRN Hypoglycemia Protocol Docusate Sodium 100 mg 07/10/19 10:00 08/13/19 22:17 Colace PO Not Given BID [facility] Enoxaparin Sodium 40 mg 07/24/19 10:00 08/13/19 09:19 Enoxaparin SUB-Q 40 mg QDAY@1000 TAMMIE Administration Famotidine 20 mg 07/23/19 22:00 08/13/19 22:15 Pepcid PO 20 mg BID TAMMIE Administration Fentanyl 50 mcg 07/21/19 15:18 08/09/19 17:44 Sublimaze IV 50 mcg Q10MIN PRN Administration ANALGESIA Fentanyl 25 mcg 08/03/19 11:00 08/12/19 10:05 Duragesic TD 25 mcg Q3D TAMMIE Administration Folic Acid 1 mg 07/05/19 10:00 08/13/19 09:19 Folvite PO 1 mg QDAY [facility] Administration Hydrophilic Ointment 1 applic 07/03/19 19:56 07/05/19 17:42 Vaseline Lip Therapy TP 1 applic Q2HR PRN Administration Dry Lips Norepinephrine 4 mg in 250 mls @ 7.5 mls/hr 07/03/19 23:00 07/20/19 01:00 Levophed Drip 4 Mg/Ns 250 Ml IV Infused TITR [facility] Titration Protocol 2 MCG/MIN Piperacillin Sod/Tazobactam Sod 4.5 gm in 100 mls @ 200 mls/hr 08/06/19 12:00 08/14/19 05:39 Zosyn/Ns 4.5gm/100ml IV 08/27/19 11:59 200 mls/hr Q6HR [facility] Administration Protocol Insulin Human Lispro 0 unit 07/07/19 12:00 08/14/19 05:39 Humalog SUB-Q Not Given Q6HR [facility] Protocol Levetiracetam 750 mg 07/06/19 11:00 08/13/19 22:15 Keppra FEEDTUBE 750 mg Q12HR [facility] Administration Metoprolol Tartrate 5 mg 07/12/19 15:08 08/11/19 14:47 Metoprolol IV 5 mg Q6HR PRN Administration Tachyarrhythmias Multi-Ingred Cream/Lotion/Oil/Oint 1 applic 07/03/19 19:56 07/05/19 13:19 Artificial Tears Ophth Oint OU 1 applic Q4HR PRN Administration Dry Eye(s) Naloxone HCl 0.1 mg 07/04/19 04:24 Naloxone IV Q2MIN PRN Res Rate </= 8 or 02 SAT < 92% Oxycodone/Acetaminophen 1 tab 07/19/19 14:17 08/11/19 13:06 Percocet 5/325 PO 1 tab Q4H PRN Administration Pain, Moderate (4-6) Scopolamine 1 each 07/10/19 11:00 08/12/19 10:04 Transderm-Scop TD 1 each Q3D TAMMIE Administration Simple Syrup 15 ml 07/04/19 10:04 07/10/19 21:56 Simple Syrup FEEDTUBE 15 ml PRN PRN Administration Hypoglycemia Simple Syrup 30 ml 07/04/19 10:04 Simple Syrup FEEDTUBE PRN PRN Hypoglycemia Sodium Bicarbonate 325 mg 07/04/19 10:04 07/20/19 10:20 Sodium Bicarbonate FEEDTUBE 325 mg PRN PRN Administration For Clogged Feeding Tube Sodium Chloride 10 ml 07/04/19 10:00 08/13/19 22:16 Sodium Chloride Flush Syringe 10 Ml IV 10 ml BID TAMMIE Administration Sodium Chloride 10 ml 07/04/19 04:24 Sodium Chloride Flush Syringe 10 Ml IV PRN PRN LINE FLUSH Sodium Hypochlorite 1 applic 07/10/19 14:00 08/13/19 22:23 Dakin's Half Strength TP 1 appful BID TAMMIE Administration Nutrition/Malnutrition Assess - Dietary Evaluation Nutrition/Malnutrition Findings: Nutrition Notes Start: 07/04/19 09: 17 Freq: Status: Active Protocol: Document 08/10/19 08:21 LP (Rec: 08/10/19 08:25 LP [id number]) Nutrition Notes Initial or Follow up Reassessment Current Diagnosis Acute Kidney Injury,COPD, Decubitus(Pressure Ulcer), Diabetes,Hypertension Other Pertinent Diagnosis COVID-19 (+), pneu, seizures, schizophrenia, Buttock and R foot PU, Current Diet Osmolite 1.5 at 55ml/hr Labs/Tests Reviewed Pertinent Medications Reviewed Height 5 ft 11 in Weight 92 kg [place] Body Weight (kg) 78.18 BMI 28.3 Weight Status Overweight Subjective/Other Information Pt tolerating TF at goal rate. Pt waiting to get trach and PEG placed. Percent of energy/protein needs met: 97%/75% Burn Absent Trauma Absent Current % PO Negligible Minimum of two criteria No physical signs of malnutrition #2 Nutrition Diagnosis Increased nutrient needs ( specify in comment below) Diagnosis Progress(for reassessment Continues documentation) #1 Nutrition Diagnosis Inadequate oral intake Diagnosis Progress(for reassessment Continues documentation) Is patient on ventilator? Yes Is Patient Ambulatory and/or Out of Bed No REE-([facility]-confined to bed) 2047.172 Calculation Used for Recommendations [facility] Additional Notes Protein: 110-184 (1.2-2g/kg) Fluid: 1 ml/kcal or per MD Nutrition Intervention Change Diet Order: Continue TF Nutrition Support: Osmolite 1.5 at 55ml/hr Flush 50ml q4h for hyponatremia Flush 150 once resolved Kcal 1,980 Protein (gm) 83 Fluid (mL) 1,006 Goal #1 TF tolerance Goal #2 TF to meet at least 75% of energy and protein needs Anticipated Discharge Needs: unable to determine at this time Follow-Up By: 08/15/19 Additional Comments Follow for TF
[2019-08-14] MEDS: ASPIRIN 81 MG TAB CHEW PO SCH (10:32)
[2019-08-14] MEDS: FOLIC ACID 1 MG TAB PO SCH (10:32)
[2019-08-14] MEDS: FAMOTIDINE 20 MG TAB PO SCH ×2 (10:32→21:33)
[2019-08-14] MEDS: ENOXAPARIN 40 MG/0.4 ML INJ SUB-Q SCH (10:32)
[2019-08-14] MEDS: levETIRAcetam 500 MG/5 ML ORAL LIQD FEEDTUBE SCH ×2 (10:33→21:34)
[2019-08-14] MEDS: SODIUM HYPOCHLORITE, DAKIN'S 1/2 STRENGTH (0.25%) 473 ML TOPICAL SOLN TP SCH ×2 (10:33→21:33)
[2019-08-14] MEDS: DOCUSATE SODIUM 100 MG/10 ML ORAL LIQD PO SCH (10:34)
--- NOTE | 2019-08-14 11:45 | Progress Note ---
Assessment and Plan Cultures: 07/03/2019 urine culture: No growth 07/03/2019 Tracheal aspirate: E.coli 07/29/2019 urine culture: neg 07/30/2019 blood culture: no growth tracheal asp + Pseudomonas 08/06/2019 blood culture: no growth A/P: 69-year-old male with CVA, hypertension, dementia, schizophrenia, alcohol use disorder was admitted to the emergency room after being brought in by EMS with progressive shortness of breath and unresponsiveness. He was noted to have agonal breathing and a faint pulse requiring CPR. It seems patient was on hospice recently, prior to admission. #Shock, likely septic: shock resolved, remains off pressors. still fever, leukocytosis better ? bacterial pneumonia vs sacral decubitus infection. Very high procal=24 on 07/29 most recent 0.5 #Nonresolving pneumonia/Cavitary pneumonia: ? abscess. Sputum +Pseudomonas. CT shows RUL pneumonia with 2.4 cm cavity and LLL pneumonia with moderate left pleural effusion. No need for thoracentesis per Pulm #Penile/scrotal and buttocks wounds: ?cellulitis #Sacral decubitus: worsening on last exam ? necrotic. Evaluated for surgery, no indications for intervention. 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 bleeding overnight s/p surgical management bedside #UTI: per documentation initial carroll placed on 07/03, exchanged on 07/31. #History of Severe COVID-19 disease and pneumonia: Markers improving. Completed Plaquenil. Completed Ceftriaxone for treatment E.coli in tracheal aspirate. repeat COVID 08/10/2019 positive. #Acute respiratory failure: on mechanical ventilation. #Transaminitis: Likely from COVID-19, shock #Multiple skin tears documented on admission #Anemia: from sacral wound bleeding Recs: Continue zosyn IV 4.5 g IV q 8 hour Off loading Anticipate to d/c on zosyn 4.5 gm IV q 8 hour for 3 weeks until 08/27/2019 to cover for lung abscess and sacral wound infection/osteomyelitis, I am holding off 6 weeks treatment for osteomyelitis as possibility of flap/healing is unlikely. guarded prognosis Padmaja Garcia MD Infectious Diseases [facility] [employer] [facility] M [phone] O [phone] Subjective Date of service: 08/14/19 Principal diagnosis: Bilateral pneumonia, severe sepsis with septic shock, encephalopathy Interval history: Remains intubated, tmax 100.2, alert,. intubated Objective - Exam Narrative Exam: General appearance: sedated on the vent Eyes: anicteric sclerae, moist conjunctivae; no lid-lag; PERRLA HENT: Atraumatic; oropharynx ETT with thick yellow secretion, NGT Lungs: madelin rhonchi per RT CV: RRR Abdomen: Soft, non-tender Extremities: marked madelin arm and leg edema Skin: No rash. Genital: penile/scrotal ulcer with scab covered w dressings Psych: no agitated Neuro: sedated Carroll - Constitutional Vitals: Vital Signs Temp Pulse Resp BP Pulse Ox 97.9 F 90 24 149/84 100 08/14/19 08:00 08/14/19 11:32 08/14/19 11:32 08/14/19 11:32 08/14/19 11:32 Temperature -Last 24 Hours Temperature 97.9 F Temperature 100.1 F Temperature 98.8 F Temperature 98.9 F Temperature 98.5 F Temperature 97.4 F - Labs CBC & Chem 7: 08/14/19 05:00 08/14/19 05:00 Labs: Abnormal lab results 08/13/19 08/13/19 08/13/19 Range/Units 11:36 17:10 19:06 WBC (4.5-11.0) K/mm3 RBC (3.65-5.03) M/mm3 Hgb (11.8-15.2) gm/dl Hct (35.5-45.6) % RDW (13.2-15.2) % Plt Count (140-440) K/mm3 ABG pO2 105.0 H (80.0-90.0) mm Hg ABG HCO3 28.5 H (20.0-26.0) mmol/L ABG Base Excess 3.5 H (-2.0-3.0) mmol/L ABG Hemoglobin 7.8 L (14.0-18.0) gm/dl BUN (9-20) mg/dL Creatinine (0.8-1.5) mg/dL POC Glucose 143 H 107 H (70-105) Calcium (8.4-10.2) mg/dL 08/13/19 08/14/1920 Range/Units 23:23 05:00 05:00 WBC 14.3 H (4.5-11.0) K/mm3 RBC 2.76 L (3.65-5.03) M/mm3 Hgb 7.8 L (11.8-15.2) gm/dl Hct 23.9 L (35.5-45.6) % RDW 18.7 H (13.2-15.2) % Plt Count 896 H (140-440) K/mm3 ABG pO2 (80.0-90.0) mm Hg ABG HCO3 (20.0-26.0) mmol/L ABG Base Excess (-2.0-3.0) mmol/L ABG Hemoglobin (14.0-18.0) gm/dl BUN 6 L (9-20) mg/dL Creatinine 0.3 L (0.8-1.5) mg/dL POC Glucose 125 H (70-105) Calcium 8.2 L (8.4-10.2) mg/dL 08/14/19 Range/Units 05:07 WBC (4.5-11.0) K/mm3 RBC (3.65-5.03) M/mm3 Hgb (11.8-15.2) gm/dl Hct (35.5-45.6) % RDW (13.2-15.2) % Plt Count (140-440) K/mm3 ABG pO2 (80.0-90.0) mm Hg ABG HCO3 (20.0-26.0) mmol/L ABG Base Excess (-2.0-3.0) mmol/L ABG Hemoglobin (14.0-18.0) gm/dl BUN (9-20) mg/dL Creatinine (0.8-1.5) mg/dL POC Glucose 128 H (70-105) Calcium (8.4-10.2) mg/dL
--- NOTE | 2019-08-14 13:28 | XRay Report ---
CHEST - 1 VIEW INDICATION: OGT placement COMPARISON: 08/09/2019 FINDINGS: Support devices: NG tube has been slightly retracted and is now in the proximal stomach. The tube sh ould be advanced another 5 cm. Otherwise stable support device positioning. Heart: Stable cardiomediastinal silhouette. Lungs/pleura: Largely unchanged patchy multifocal airspace disease. Additional findings: None. IMPRESSION: NG tube as above. Otherwise largely unchanged exam. Signer Name: Mauri Godfrey MD Signed: 08/14/2019 1:24 PM Workstation Name: [id number]
--- NOTE | 2019-08-14 14:16 | Progress Note ---
Assessment and Plan Acute hypoxemic respiratory failure on MVS Severe sepsis with Shock. Bilateral Pneumonia. PUI coronavirus-19 infection. Acute possibly on chronic encephalopathy. Oropharyngeal dysphagia. Anemia. Decubitus ulcers Diabetes type 2. Hypertension. Leukocytosis. Anemia that is microcytic. Elevated serum transaminases. [id number] metabolic acidosis. Lactic acidosis. Severe protein-calorie malnutrition ( has advised us she wants a tracheostomy and continued aggressive care) - no new issues otherwise, continue care as below - follow repeat COVID-19 - surgery evaluation ongoing for tracheostomy placement (await negative COVID test) - continue care as below otherwise - continue fentanyl gtt for pain control / sedation - continue to wean supplemental oxygen for target O2 sat's > 90% acutely - continue daily SAT's and SBT assessment as tolerated - VAP bundle addressed - continue lung protective strategies - continue bronchodilators with pulmonary hygiene per RT - wean per pulmonary driven protocols otherwise - prn Levophed for target MAP > 65 mmHg - continue airborne and contact COVID-19 precautions - COVID-19 test positive - complete anti-infectives and de-escalate per ID recommendations - continue wound care per WCT - sedation prn for target RASS 0 to -1 - accuchecks with glycemic control per SSI (While critically ill target blood glucose of 140-180 mg/dL; avoid hypoglycemia) - to avoid benzodiazepine's, reduce the possibility of delirium - prn analgesia per CPOT score - Maintenance of sleep-wake cycle, avoid delirium - continue enteral nutritional support at goal rate as tolerated - G.I. & VTE prophylaxis - PT/OT/ROM exercises - continue mobility protocols for pressure ulcer prophylaxis - Monitor hemodynamics closely - continue other care per attending / other consultants - discharge planning ongoing concurrently .... Re-evaluate in am & prn CONDITION: CRITICAL PROGNOSIS: GUARDED CODE STATUS: FULL CODE The high probability of a clinically significant, sudden or life-threatening deterioration of the [respiratory & cardiovascular] system(s) required my full and direct attention, intervention and personal management. The aggregate critical care time was [34] minutes without overlap. Time includes spent on; [x] Data Review and interpretation [x] Patient assessment and monitoring of vital signs [x] Documentation [x] Medication orders and management Subjective Date of service: 08/14/19 Principal diagnosis: Bilateral pneumonia, severe sepsis with septic shock, ence phalopathy Interval history: Patient is seen today for: Ac hypoxemic Resp failure on MVS; Severe sepsis with Shock; Ivan. Pneumonia; PUI coronavirus-19 infection. Seen and examined at bedside; 24hour events reviewed; nursing and respiratory care staff consulted; no adverse overnight events reported to me; resting in bed; remains on MVS; AMS is persistent; weaning tenuously but tolerated SBT well yesterday Objective Vital Signs - 12hr 08/14/19 08/14/19 08/14/19 02:59 03:00 03:30 Temperature 100.1 F H Pulse Rate 94 H Pulse Rate [ 92 H From Monitor] Respiratory 19 17 Rate Blood Pressure 145/77 O2 Sat by Pulse 96 99 Oximetry 08/14/19 08/14/19 08/14/19 04:00 04:07 05:00 Temperature Pulse Rate 94 H 102 H 101 H Pulse Rate [ From Monitor] Respiratory 14 14 Rate Blood Pressure 153/80 153/80 137/78 O2 Sat by Pulse 98 100 94 Oximetry 08/14/19 08/14/19 08/14/19 06:00 07:38 08:00 Temperature 97.9 F Pulse Rate 88 88 Pulse Rate [ From Monitor] Respiratory 16 16 Rate Blood Pressure 149/84 149/84 O2 Sat by Pulse 100 100 Oximetry 08/14/19 08/14/19 11:32 12:00 Temperature 97.8 F Pulse Rate 90 Pulse Rate [ From Monitor] Respiratory 24 Rate Blood Pressure 149/84 O2 Sat by Pulse 100 Oximetry Constitutional: appears uncomfortable, other (eelderly and chronically ill looking AAM, normocep[krystina;ic with mildly increased respiratory effort at rest) Eyes: non-icteric ENT: oropharynx moist, other (ETT 24 cm [place]) Neck: supple, no lymphadenopathy, no JVD Effort: very labored Ascultation: Bilateral: diminished breath sounds, rhonchi Percussion: Bilateral: not dull Cardiovascular: regular rate and rhythm Gastrointestinal: normoactive bowel sounds, soft, non-tender, non-distended, other (+ PEG tube with mild TF leakage) Integumentary: decubitus ulcer (sacral) Extremities: no cyanosis, no edema, pink and warm, pulses normal Neurologic: pupils equal and round, unable to assess Psychiatric: other (Unable to assess re: AMS) CBC and BMP: 08/15/19 06:10 08/15/19 06:10 ABG, PT/INR, D-dimer: ABG ABG pH 7.408 pH Units (7.350-7.450) 08/13/19 17:10 ABG pCO2 46.2 mm Hg 08/13/19 17:10 ABG pO2 105.0 mm Hg (80.0-90.0) H 08/13/19 17:10 ABG O2 Saturation 97.8 % (95.0-99.0) 08/13/19 17:10 PT/INR, D-dimer PT 16.0 Sec. (12.2-14.9) H 07/03/19 22:20 INR 1.26 (0.87-1.13) H 07/03/19 22:20 D-Dimer 1808.06 ng/mlDDU (0-234) H 08/07/19 10:24 Abnormal lab findings: Abnormal Labs 07/03/19 07/03/19 07/03/19 19:57 21:10 21:13 WBC RBC Hgb Hct MCV MCH MCHC RDW Plt Count Lymph % (Auto) [place] % (Auto) Lymph # [place] # Baso # Seg Neutrophils % Seg Neuts % (Manual) Lymphocytes % (Manual) Monocytes % (Manual) Nucleated RBC % Seg Neutrophils # Seg Neutrophils # Man Lymphocytes # (Manual) Monocytes # (Manual) Basophils # (Manual) PT INR D-Dimer ABG pH 7.238 L ABG pO2 210.8 H ABG HCO3 15.4 L ABG O2 Saturation 99.2 H ABG Base Excess -11.1 L ABG Hemoglobin 8.0 L Oxyhemoglobin Sodium 124 L Potassium Chloride 92.9 L Carbon Dioxide 10 L BUN 23 H Creatinine 0.5 L Glucose 118 H POC Glucose Lactic Acid Calcium 7.0 L Magnesium Iron TIBC Ferritin AST 70 H ALT 88 H Lactate Dehydrogenase Troponin T 0.032 H C-Reactive Protein Total Protein 5.0 L Albumin 1.8 L Prealbumin Cholesterol 47 L LDL Cholesterol Direct 25 L HDL Cholesterol 20 L Urine WBC (Auto) 12.0 H Vancomycin Trough Coronavirus (PCR) Crossmatch 07/03/19 07/03/19 07/03/19 22:20 22:20 22:20 WBC 30.5 H RBC 2.96 L Hgb 7.7 L Hct 23.9 L MCV 81 L MCH 26 L MCHC RDW 18.6 H Plt Count 459 H Lymph % (Auto) [place] % (Auto) Lymph # [place] # Baso # Seg Neutrophils % Seg Neuts % (Manual) 93.0 H Lymphocytes % (Manual) 0.5 L Monocytes % (Manual) Nucleated RBC % Seg Neutrophils # Seg Neutrophils # Man 28.4 H Lymphocytes # (Manual) 0.2 L Monocytes # (Manual) Basophils # (Manual) PT 16.0 H INR 1.26 H D-Dimer ABG pH ABG pO2 ABG HCO3 ABG O2 Saturation ABG Base Excess ABG Hemoglobin Oxyhemoglobin Sodium Potassium Chloride Carbon Dioxide BUN Creatinine Glucose POC Glucose Lactic Acid 6.90 H* Calcium Magnesium Iron TIBC Ferritin AST ALT Lactate Dehydrogenase Troponin T C-Reactive Protein Total Protein Albumin Prealbumin Cholesterol LDL Cholesterol Direct HDL Cholesterol Urine WBC (Auto) Vancomycin Trough Coronavirus (PCR) Crossmatch 07/03/19 07/04/19 07/04/19 23:58 05:15 07:05 WBC 17.1 H RBC 3.22 L Hgb 8.3 L Hct 25.4 L MCV 79 L MCH 26 L MCHC RDW 18.6 H Plt Count Lymph % (Auto) [place] % (Auto) Lymph # [place] # Baso # Seg Neutrophils % Seg Neuts % (Manual) 74.0 H Lymphocytes % (Manual) 0 L Monocytes % (Manual) Nucleated RBC % Seg Neutrophils # Seg Neutrophils # Man 12.7 H Lymphocytes # (Manual) 0.0 L Monocytes # (Manual) Basophils # (Manual) PT INR D-Dimer ABG pH 7.310 L ABG pO2 73.2 L ABG HCO3 17.8 L ABG O2 Saturation 93.8 L ABG Base Excess -7.7 L ABG Hemoglobin 9.6 L Oxyhemoglobin 92.3 L Sodium Potassium Chloride Carbon Dioxide BUN Creatinine Glucose POC Glucose Lactic Acid 7.10 H* Calcium Magnesium Iron TIBC Ferritin AST ALT Lactate Dehydrogenase Troponin T C-Reactive Protein Total Protein Albumin Prealbumin Cholesterol LDL Cholesterol Direct HDL Cholesterol Urine WBC (Auto) Vancomycin Trough Coronavirus (PCR) Crossmatch 07/04/19 07/04/19 07/04/19 07:05 07:05 07:05 WBC RBC Hgb Hct MCV MCH MCHC RDW Plt Count Lymph % (Auto) [place] % (Auto) Lymph # [place] # Baso # Seg Neutrophils % Seg Neuts % (Manual) Lymphocytes % (Manual) Monocytes % (Manual) Nucleated RBC % Seg Neutrophils # Seg Neutrophils # Man Lymphocytes # (Manual) Monocytes # (Manual) Basophils # (Manual) PT INR D-Dimer ABG pH ABG pO2 ABG HCO3 ABG O2 Saturation ABG Base Excess ABG Hemoglobin Oxyhemoglobin Sodium 120 L Potassium 5.1 H Chloride 90.0 L Carbon Dioxide 14 L BUN 26 H Creatinine 0.5 L Glucose POC Glucose Lactic Acid 3.30 H* Calcium 8.0 L Magnesium Iron 9 L TIBC 97 L Ferritin AST 73 H ALT 91 H Lactate Dehydrogenase Troponin T C-Reactive Protein Total Protein 5.5 L Albumin 2.0 L Prealbumin Cholesterol LDL Cholesterol Direct HDL Cholesterol Urine WBC (Auto) Vancomycin Trough Coronavirus (PCR) Crossmatch 07/04/19 07/04/19 07/04/19 09:39 09:39 09:39 WBC RBC Hgb Hct MCV MCH MCHC RDW Plt Count Lymph % (Auto) [place] % (Auto) Lymph # [place] # Baso # Seg Neutrophils % Seg Neuts % (Manual) Lymphocytes % (Manual) Monocytes % (Manual) Nucleated RBC % Seg Neutrophils # Seg Neutrophils # Man Lymphocytes # (Manual) Monocytes # (Manual) Basophils # (Manual) PT INR D-Dimer 1419.14 H ABG pH ABG pO2 ABG HCO3 ABG O2 Saturation ABG Base Excess ABG Hemoglobin Oxyhemoglobin Sodium Potassium Chloride Carbon Dioxide BUN Creatinine Glucose POC Glucose Lactic Acid Calcium Magnesium Iron TIBC Ferritin 1719.0 H AST ALT Lactate Dehydrogenase 234 H Troponin T C-Reactive Protein 15.50 H Total Protein Albumin Prealbumin Cholesterol LDL Cholesterol Direct HDL Cholesterol Urine WBC (Auto) Vancomycin Trough Coronavirus (PCR) Crossmatch 07/04/19 07/04/19 07/04/19 10:09 18:08 18:28 WBC RBC Hgb Hct MCV MCH MCHC RDW Plt Count Lymph % (Auto) [place] % (Auto) Lymph # [place] # Baso # Seg Neutrophils % Seg Neuts % (Manual) Lymphocytes % (Manual) Monocytes % (Manual) Nucleated RBC % Seg Neutrophils # Seg Neutrophils # Man Lymphocytes # (Manual) Monocytes # (Manual) Basophils # (Manual) PT INR D-Dimer ABG pH ABG pO2 ABG HCO3 ABG O2 Saturation ABG Base Excess ABG Hemoglobin Oxyhemoglobin Sodium 117 L* Potassium 5.6 H Chloride 90.3 L Carbon Dioxide 16 L BUN 28 H Creatinine 0.5 L Glucose 58 L POC Glucose 65 L Lactic Acid Calcium 8.2 L Magnesium Iron TIBC Ferritin AST ALT Lactate Dehydrogenase Troponin T C-Reactive Protein Total Protein Albumin Prealbumin Cholesterol LDL Cholesterol Direct HDL Cholesterol Urine WBC (Auto) Vancomycin Trough Coronavirus (PCR) Positive A Crossmatch 07/04/19 07/04/19 07/04/19 23:45 Unknown Unknown WBC RBC Hgb Hct MCV MCH MCHC RDW Plt Count Lymph % (Auto) [place] % (Auto) Lymph # [place] # Baso # Seg Neutrophils % Seg Neuts % (Manual) Lymphocytes % (Manual) Monocytes % (Manual) Nucleated RBC % Seg Neutrophils # Seg Neutrophils # Man Lymphocytes # (Manual) Monocytes # (Manual) Basophils # (Manual) PT INR D-Dimer 759.77 H ABG pH ABG pO2 ABG HCO3 ABG O2 Saturation ABG Base Excess ABG Hemoglobin Oxyhemoglobin Sodium 122 L Potassium Chloride 93.0 L Carbon Dioxide 19 L BUN 27 H Creatinine 0.5 L Glucose POC Glucose Lactic Acid Calcium 8.3 L Magnesium Iron TIBC Ferritin 1301.0 H AST ALT Lactate Dehydrogenase Troponin T C-Reactive Protein Total Protein Albumin Prealbumin Cholesterol LDL Cholesterol Direct HDL Cholesterol Urine WBC (Auto) Vancomycin Trough Coronavirus (PCR) Crossmatch 07/04/19 07/05/19 07/05/19 Unknown 03:20 04:00 WBC RBC Hgb Hct MCV MCH MCHC RDW Plt Count Lymph % (Auto) [place] % (Auto) Lymph # [place] # Baso # Seg Neutrophils % Seg Neuts % (Manual) Lymphocytes % (Manual) Monocytes % (Manual) Nucleated RBC % Seg Neutrophils # Seg Neutrophils # Man Lymphocytes # (Manual) Monocytes # (Manual) Basophils # (Manual) PT INR D-Dimer ABG pH ABG pO2 60.6 L ABG HCO3 ABG O2 Saturation 93.5 L ABG Base Excess -2.4 L ABG Hemoglobin 6.9 L Oxyhemoglobin 92.0 L Sodium 125 L Potassium Chloride 92.6 L Carbon Dioxide 19 L BUN 24 H Creatinine 0.6 L Glucose POC Glucose Lactic Acid Calcium 8.2 L Magnesium 1.40 L Iron TIBC Ferritin AST ALT Lactate Dehydrogenase 242 H Troponin T C-Reactive Protein 16.70 H Total Protein Albumin Prealbumin Cholesterol LDL Cholesterol Direct HDL Cholesterol Urine WBC (Auto) Vancomycin Trough Coronavirus (PCR) Crossmatch 07/05/19 07/05/19 07/05/19 10:11 16:15 17:54 WBC 46.4 H* RBC 2.77 L Hgb 7.2 L Hct 21.9 L MCV 79 L MCH 26 L MCHC RDW 19.0 H Plt Count Lymph % (Auto) [place] % (Auto) Lymph # [place] # Baso # Seg Neutrophils % Seg Neuts % (Manual) 82.0 H Lymphocytes % (Manual) 1.0 L Monocytes % (Manual) Nucleated RBC % Seg Neutrophils # Seg Neutrophils # Man 38.0 H Lymphocytes # (Manual) 0.5 L Monocytes # (Manual) Basophils # (Manual) PT INR D-Dimer ABG pH ABG pO2 ABG HCO3 ABG O2 Saturation ABG Base Excess ABG Hemoglobin Oxyhemoglobin Sodium Potassium Chloride Carbon Dioxide BUN Creatinine Glucose POC Glucose 69 L Lactic Acid Calcium Magnesium Iron TIBC Ferritin AST ALT Lactate Dehydrogenase Troponin T C-Reactive Protein Total Protein Albumin Prealbumin Cholesterol LDL Cholesterol Direct HDL Cholesterol Urine WBC (Auto) Vancomycin Trough 23.2 H Coronavirus (PCR) Crossmatch 07/05/19 07/06/19 07/06/19 19:58 00:27 00:27 WBC RBC Hgb Hct MCV MCH MCHC RDW Plt Count Lymph % (Auto) [place] % (Auto) Lymph # [place] # Baso # Seg Neutrophils % Seg Neuts % (Manual) Lymphocytes % (Manual) Monocytes % (Manual) Nucleated RBC % Seg Neutrophils # Seg Neutrophils # Man Lymphocytes # (Manual) Monocytes # (Manual) Basophils # (Manual) PT INR D-Dimer 1333.22 H ABG pH ABG pO2 ABG HCO3 ABG O2 Saturation ABG Base Excess ABG Hemoglobin Oxyhemoglobin Sodium 127 L Potassium Chloride Carbon Dioxide BUN Creatinine Glucose POC Glucose Lactic Acid Calcium Magnesium Iron TIBC Ferritin 977.1 H AST ALT Lactate Dehydrogenase Troponin T C-Reactive Protein Total Protein Albumin Prealbumin Cholesterol LDL Cholesterol Direct HDL Cholesterol Urine WBC (Auto) Vancomycin Trough Coronavirus (PCR) Crossmatch 07/06/19 07/06/19 07/06/19 00:27 02:00 02:56 WBC RBC Hgb Hct MCV MCH MCHC RDW Plt Count Lymph % (Auto) [place] % (Auto) Lymph # [place] # Baso # Seg Neutrophils % Seg Neuts % (Manual) Lymphocytes % (Manual) Monocytes % (Manual) Nucleated RBC % Seg Neutrophils # Seg Neutrophils # Man Lymphocytes # (Manual) Monocytes # (Manual) Basophils # (Manual) PT INR D-Dimer ABG pH ABG pO2 70.3 L ABG HCO3 ABG O2 Saturation 94.8 L ABG Base Excess ABG Hemoglobin 8.0 L Oxyhemoglobin 93.2 L Sodium Potassium Chloride Carbon Dioxide BUN Creatinine Glucose POC Glucose 117 H Lactic Acid Calcium Magnesium Iron TIBC Ferritin AST ALT Lactate Dehydrogenase 236 H Troponin T C-Reactive Protein 22.90 H Total Protein Albumin Prealbumin Cholesterol LDL Cholesterol Direct HDL Cholesterol Urine WBC (Auto) Vancomycin Trough Coronavirus (PCR) Crossmatch 07/06/19 07/06/19 07/06/19 03:49 03:49 07:40 WBC 38.8 H RBC 2.51 L Hgb 6.7 L Hct 19.9 L* MCV 79 L MCH 27 L MCHC RDW 19.2 H Plt Count Lymph % (Auto) [place] % (Auto) Lymph # [place] # Baso # Seg Neutrophils % Seg Neuts % (Manual) 90.5 H Lymphocytes % (Manual) 1.0 L Monocytes % (Manual) Nucleated RBC % Seg Neutrophils # Seg Neutrophils # Man 35.1 H Lymphocytes # (Manual) 0.4 L Monocytes # (Manual) Basophils # (Manual) PT INR D-Dimer ABG pH ABG pO2 ABG HCO3 ABG O2 Saturation ABG Base Excess ABG Hemoglobin Oxyhemoglobin Sodium 131 L Potassium Chloride 96.9 L Carbon Dioxide 18 L BUN 23 H Creatinine 0.5 L Glucose POC Glucose Lactic Acid Calcium 8.0 L Magnesium Iron TIBC Ferritin AST ALT Lactate Dehydrogenase Troponin T C-Reactive Protein Total Protein Albumin Prealbumin Cholesterol LDL Cholesterol Direct HDL Cholesterol Urine WBC (Auto) Vancomycin Trough Coronavirus (PCR) Crossmatch See Detail 07/06/19 07/06/19 07/06/19 12:38 14:39 20:00 WBC RBC Hgb Hct MCV MCH MCHC RDW Plt Count Lymph % (Auto) [place] % (Auto) Lymph # [place] # Baso # Seg Neutrophils % Seg Neuts % (Manual) Lymphocytes % (Manual) Monocytes % (Manual) Nucleated RBC % Seg Neutrophils # Seg Neutrophils # Man Lymphocytes # (Manual) Monocytes # (Manual) Basophils # (Manual) PT INR D-Dimer ABG pH ABG pO2 ABG HCO3 ABG O2 Saturation ABG Base Excess ABG Hemoglobin Oxyhemoglobin Sodium Potassium Chloride Carbon Dioxide BUN Creatinine Glucose POC Glucose 112 H 111 H 140 H Lactic Acid Calcium Magnesium Iron TIBC Ferritin AST ALT Lactate Dehydrogenase Troponin T C-Reactive Protein Total Protein Albumin Prealbumin Cholesterol LDL Cholesterol Direct HDL Cholesterol Urine WBC (Auto) Vancomycin Trough Coronavirus (PCR) Crossmatch 07/06/19 07/06/19 07/07/19 22:43 22:56 02:20 WBC RBC Hgb 7.9 L Hct 23.1 L MCV MCH MCHC RDW Plt Count Lymph % (Auto) [place] % (Auto) Lymph # [place] # Baso # Seg Neutrophils % Seg Neuts % (Manual) Lymphocytes % (Manual) Monocytes % (Manual) Nucleated RBC % Seg Neutrophils # Seg Neutrophils # Man Lymphocytes # (Manual) Monocytes # (Manual) Basophils # (Manual) PT INR D-Dimer ABG pH ABG pO2 ABG HCO3 ABG O2 Saturation ABG Base Excess ABG Hemoglobin Oxyhemoglobin Sodium Potassium Chloride Carbon Dioxide BUN Creatinine Glucose POC Glucose 122 H 149 H Lactic Acid Calcium Magnesium Iron TIBC Ferritin AST ALT Lactate Dehydrogenase Troponin T C-Reactive Protein Total Protein Albumin Prealbumin Cholesterol LDL Cholesterol Direct HDL Cholesterol Urine WBC (Auto) Vancomycin Trough Coronavirus (PCR) Crossmatch 07/07/19 07/07/19 07/07/19 04:35 05:27 05:34 WBC 23.1 H RBC 3.00 L Hgb 8.1 L Hct 24.2 L MCV 81 L MCH 27 L MCHC RDW 20.6 H Plt Count Lymph % (Auto) [place] % (Auto) Lymph # [place] # Baso # Seg Neutrophils % Seg Neuts % (Manual) 90.0 H Lymphocytes % (Manual) 2.0 L Monocytes % (Manual) Nucleated RBC % Seg Neutrophils # Seg Neutrophils # Man 20.8 H Lymphocytes # (Manual) 0.5 L Monocytes # (Manual) Basophils # (Manual) PT INR D-Dimer ABG pH ABG pO2 65.8 L ABG HCO3 ABG O2 Saturation 92.2 L ABG Base Excess ABG Hemoglobin 8.3 L Oxyhemoglobin 90.6 L Sodium Potassium Chloride Carbon Dioxide BUN Creatinine Glucose POC Glucose 132 H Lactic Acid Calcium Magnesium Iron TIBC Ferritin AST ALT Lactate Dehydrogenase Troponin T C-Reactive Protein Total Protein Albumin Prealbumin Cholesterol LDL Cholesterol Direct HDL Cholesterol Urine WBC (Auto) Vancomycin Trough Coronavirus (PCR) Crossmatch 07/07/19 07/07/19 07/07/19 05:34 11:50 15:58 WBC RBC Hgb 8.1 L Hct 24.2 L MCV MCH MCHC RDW Plt Count Lymph % (Auto) [place] % (Auto) Lymph # [place] # Baso # Seg Neutrophils % Seg Neuts % (Manual) Lymphocytes % (Manual) Monocytes % (Manual) Nucleated RBC % Seg Neutrophils # Seg Neutrophils # Man Lymphocytes # (Manual) Monocytes # (Manual) Basophils # (Manual) PT INR D-Dimer ABG pH ABG pO2 ABG HCO3 ABG O2 Saturation ABG Base Excess ABG Hemoglobin Oxyhemoglobin Sodium 135 L Potassium 3.3 L Chloride Carbon Dioxide 20 L BUN 27 H Creatinine 0.6 L Glucose 121 H POC Glucose 123 H Lactic Acid Calcium 8.0 L Magnesium Iron TIBC Ferritin AST ALT Lactate Dehydrogenase Troponin T C-Reactive Protein Total Protein Albumin Prealbumin Cholesterol LDL Cholesterol Direct HDL Cholesterol Urine WBC (Auto) Vancomycin Trough Coronavirus (PCR) Crossmatch 07/07/19 07/07/19 07/07/19 17:42 22:00 23:53 WBC RBC Hgb 8.0 L Hct 23.4 L MCV MCH MCHC RDW Plt Count Lymph % (Auto) [place] % (Auto) Lymph # [place] # Baso # Seg Neutrophils % Seg Neuts % (Manual) Lymphocytes % (Manual) Monocytes % (Manual) Nucleated RBC % Seg Neutrophils # Seg Neutrophils # Man Lymphocytes # (Manual) Monocytes # (Manual) Basophils # (Manual) PT INR D-Dimer ABG pH ABG pO2 ABG HCO3 ABG O2 Saturation ABG Base Excess ABG Hemoglobin Oxyhemoglobin Sodium Potassium Chloride Carbon Dioxide BUN Creatinine Glucose POC Glucose 107 H 117 H Lactic Acid Calcium Magnesium Iron TIBC Ferritin AST ALT Lactate Dehydrogenase Troponin T C-Reactive Protein Total Protein Albumin Prealbumin Cholesterol LDL Cholesterol Direct HDL Cholesterol Urine WBC (Auto) Vancomycin Trough Coronavirus (PCR) Crossmatch 07/08/19 07/08/19 07/08/19 00:45 00:45 00:45 WBC RBC Hgb Hct MCV MCH MCHC RDW Plt Count Lymph % (Auto) [place] % (Auto) Lymph # [place] # Baso # Seg Neutrophils % Seg Neuts % (Manual) Lymphocytes % (Manual) Monocytes % (Manual) Nucleated RBC % Seg Neutrophils # Seg Neutrophils # Man Lymphocytes # (Manual) Monocytes # (Manual) Basophils # (Manual) PT INR D-Dimer 1142.18 H ABG pH ABG pO2 ABG HCO3 ABG O2 Saturation ABG Base Excess ABG Hemoglobin Oxyhemoglobin Sodium Potassium Chloride Carbon Dioxide BUN Creatinine Glucose POC Glucose Lactic Acid Calcium Magnesium Iron TIBC Ferritin 839.0 H AST ALT Lactate Dehydrogenase 253 H Troponin T C-Reactive Protein 18.90 H Total Protein Albumin Prealbumin Cholesterol LDL Cholesterol Direct HDL Cholesterol Urine WBC (Auto) Vancomycin Trough Coronavirus (PCR) Crossmatch 07/08/19 07/08/19 07/08/19 04:30 05:11 12:02 WBC RBC Hgb Hct MCV MCH MCHC RDW Plt Count Lymph % (Auto) [place] % (Auto) Lymph # [place] # Baso # Seg Neutrophils % Seg Neuts % (Manual) Lymphocytes % (Manual) Monocytes % (Manual) Nucleated RBC % Seg Neutrophils # Seg Neutrophils # Man Lymphocytes # (Manual) Monocytes # (Manual) Basophils # (Manual) PT INR D-Dimer ABG pH ABG pO2 66.0 L ABG HCO3 ABG O2 Saturation 92.3 L ABG Base Excess ABG Hemoglobin 7.7 L Oxyhemoglobin 90.7 L Sodium Potassium Chloride Carbon Dioxide BUN Creatinine Glucose POC Glucose 108 H 153 H Lactic Acid Calcium Magnesium Iron TIBC Ferritin AST ALT Lactate Dehydrogenase Troponin T C-Reactive Protein Total Protein Albumin Prealbumin Cholesterol LDL Cholesterol Direct HDL Cholesterol Urine WBC (Auto) Vancomycin Trough Coronavirus (PCR) Crossmatch 07/08/19 07/08/19 07/08/19 16:15 18:22 23:35 WBC RBC Hgb Hct MCV MCH MCHC RDW Plt Count Lymph % (Auto) [place] % (Auto) Lymph # [place] # Baso # Seg Neutrophils % Seg Neuts % (Manual) Lymphocytes % (Manual) Monocytes % (Manual) Nucleated RBC % Seg Neutrophils # Seg Neutrophils # Man Lymphocytes # (Manual) Monocytes # (Manual) Basophils # (Manual) PT INR D-Dimer ABG pH ABG pO2 ABG HCO3 ABG O2 Saturation ABG Base Excess ABG Hemoglobin Oxyhemoglobin Sodium 134 L Potassium 3.3 L Chloride Carbon Dioxide 21 L BUN 27 H Creatinine 0.6 L Glucose 146 H POC Glucose 134 H 133 H Lactic Acid Calcium Magnesium Iron TIBC Ferritin AST ALT Lactate Dehydrogenase Troponin T C-Reactive Protein Total Protein Albumin Prealbumin Cholesterol LDL Cholesterol Direct HDL Cholesterol Urine WBC (Auto) Vancomycin Trough Coronavirus (PCR) Crossmatch 07/09/19 07/09/1920 04:30 04:30 05:00 WBC 18.9 H RBC 2.77 L Hgb 7.4 L Hct 22.8 L MCV 82 L MCH 27 L MCHC RDW 20.9 H Plt Count 130 L Lymph % (Auto) [place] % (Auto) Lymph # [place] # Baso # Seg Neutrophils % Seg Neuts % (Manual) 84.0 H Lymphocytes % (Manual) 0 L Monocytes % (Manual) Nucleated RBC % Seg Neutrophils # Seg Neutrophils # Man 15.9 H Lymphocytes # (Manual) 0.0 L Monocytes # (Manual) Basophils # (Manual) PT INR D-Dimer ABG pH ABG pO2 ABG HCO3 ABG O2 Saturation ABG Base Excess ABG Hemoglobin Oxyhemoglobin Sodium Potassium 3.1 L Chloride Carbon Dioxide BUN 26 H Creatinine 0.5 L Glucose 125 H POC Glucose 155 H Lactic Acid Calcium Magnesium Iron TIBC Ferritin AST ALT Lactate Dehydrogenase Troponin T C-Reactive Protein Total Protein Albumin Prealbumin Cholesterol LDL Cholesterol Direct HDL Cholesterol Urine WBC (Auto) Vancomycin Trough Coronavirus (PCR) Crossmatch 07/09/19 07/09/19 07/09/19 05:55 12:22 17:50 WBC RBC Hgb Hct MCV MCH MCHC RDW Plt Count Lymph % (Auto) [place] % (Auto) Lymph # [place] # Baso # Seg Neutrophils % Seg Neuts % (Manual) Lymphocytes % (Manual) Monocytes % (Manual) Nucleated RBC % Seg Neutrophils # Seg Neutrophils # Man Lymphocytes # (Manual) Monocytes # (Manual) Basophils # (Manual) PT INR D-Dimer ABG pH ABG pO2 62.8 L ABG HCO3 ABG O2 Saturation ABG Base Excess ABG Hemoglobin 6.1 L Oxyhemoglobin 93.9 L Sodium Potassium Chloride Carbon Dioxide BUN Creatinine Glucose POC Glucose 115 H 133 H Lactic Acid Calcium Magnesium Iron TIBC Ferritin AST ALT Lactate Dehydrogenase Troponin T C-Reactive Protein Total Protein Albumin Prealbumin Cholesterol LDL Cholesterol Direct HDL Cholesterol Urine WBC (Auto) Vancomycin Trough Coronavirus (PCR) Crossmatch 07/10/19 07/10/19 07/10/19 00:38 04:00 04:00 WBC RBC Hgb Hct MCV MCH MCHC RDW Plt Count Lymph % (Auto) [place] % (Auto) Lymph # [place] # Baso # Seg Neutrophils % Seg Neuts % (Manual) Lymphocytes % (Manual) Monocytes % (Manual) Nucleated RBC % Seg Neutrophils # Seg Neutrophils # Man Lymphocytes # (Manual) Monocytes # (Manual) Basophils # (Manual) PT INR D-Dimer ABG pH ABG pO2 ABG HCO3 ABG O2 Saturation ABG Base Excess ABG Hemoglobin Oxyhemoglobin Sodium Potassium Chloride 107.9 H Carbon Dioxide BUN 26 H Creatinine 0.4 L Glucose 137 H POC Glucose 122 H Lactic Acid Calcium Magnesium 1.50 L Iron TIBC Ferritin AST ALT Lactate Dehydrogenase 277 H Troponin T C-Reactive Protein 15.10 H Total Protein Albumin Prealbumin Cholesterol LDL Cholesterol Direct HDL Cholesterol Urine WBC (Auto) Vancomycin Trough Coronavirus (PCR) Crossmatch 07/10/19 07/10/19 07/10/19 04:07 05:21 17:25 WBC RBC Hgb Hct MCV MCH MCHC RDW Plt Count Lymph % (Auto) [place] % (Auto) Lymph # [place] # Baso # Seg Neutrophils % Seg Neuts % (Manual) Lymphocytes % (Manual) Monocytes % (Manual) Nucleated RBC % Seg Neutrophils # Seg Neutrophils # Man Lymphocytes # (Manual) Monocytes # (Manual) Basophils # (Manual) PT INR D-Dimer ABG pH ABG pO2 65.6 L ABG HCO3 26.3 H ABG O2 Saturation ABG Base Excess ABG Hemoglobin 6.7 L Oxyhemoglobin Sodium Potassium Chloride Carbon Dioxide BUN Creatinine Glucose POC Glucose 144 H 113 H Lactic Acid Calcium Magnesium Iron TIBC Ferritin AST ALT Lactate Dehydrogenase Troponin T C-Reactive Protein Total Protein Albumin Prealbumin Cholesterol LDL Cholesterol Direct HDL Cholesterol Urine WBC (Auto) Vancomycin Trough Coronavirus (PCR) Crossmatch 07/11/19 07/11/19 07/11/19 00:07 05:14 05:25 WBC RBC Hgb Hct MCV MCH MCHC RDW Plt Count Lymph % (Auto) [place] % (Auto) Lymph # [place] # Baso # Seg Neutrophils % Seg Neuts % (Manual) Lymphocytes % (Manual) Monocytes % (Manual) Nucleated RBC % Seg Neutrophils # Seg Neutrophils # Man Lymphocytes # (Manual) Monocytes # (Manual) Basophils # (Manual) PT INR D-Dimer ABG pH ABG pO2 ABG HCO3 ABG O2 Saturation ABG Base Excess ABG Hemoglobin 5.8 L Oxyhemoglobin Sodium Potassium Chloride 108.0 H Carbon Dioxide BUN 26 H Creatinine 0.4 L Glucose 110 H POC Glucose 121 H Lactic Acid Calcium Magnesium Iron TIBC Ferritin AST ALT Lactate Dehydrogenase Troponin T C-Reactive Protein Total Protein Albumin Prealbumin Cholesterol LDL Cholesterol Direct HDL Cholesterol Urine WBC (Auto) Vancomycin Trough Coronavirus (PCR) Crossmatch 07/11/19 07/11/19 07/11/19 12:27 18:00 23:42 WBC RBC Hgb Hct MCV MCH MCHC RDW Plt Count Lymph % (Auto) [place] % (Auto) Lymph # [place] # Baso # Seg Neutrophils % Seg Neuts % (Manual) Lymphocytes % (Manual) Monocytes % (Manual) Nucleated RBC % Seg Neutrophils # Seg Neutrophils # Man Lymphocytes # (Manual) Monocytes # (Manual) Basophils # (Manual) PT INR D-Dimer ABG pH ABG pO2 ABG HCO3 ABG O2 Saturation ABG Base Excess ABG Hemoglobin Oxyhemoglobin Sodium Potassium Chloride Carbon Dioxide BUN Creatinine Glucose POC Glucose 158 H 141 H 142 H Lactic Acid Calcium Magnesium Iron TIBC Ferritin AST ALT Lactate Dehydrogenase Troponin T C-Reactive Protein Total Protein Albumin Prealbumin Cholesterol LDL Cholesterol Direct HDL Cholesterol Urine WBC (Auto) Vancomycin Trough Coronavirus (PCR) Crossmatch 07/12/19 07/12/19 07/12/19 04:46 04:46 05:23 WBC 23.6 H RBC 2.51 L Hgb 6.7 L Hct 20.8 L MCV 83 L MCH 27 L MCHC RDW 20.3 H Plt Count Lymph % (Auto) [place] % (Auto) Lymph # [place] # Baso # Seg Neutrophils % Seg Neuts % (Manual) 94.0 H Lymphocytes % (Manual) 4.0 L Monocytes % (Manual) Nucleated RBC % Seg Neutrophils # Seg Neutrophils # Man 22.2 H Lymphocytes # (Manual) 0.9 L Monocytes # (Manual) Basophils # (Manual) PT INR D-Dimer ABG pH ABG pO2 ABG HCO3 ABG O2 Saturation ABG Base Excess ABG Hemoglobin Oxyhemoglobin Sodium Potassium Chloride 107.1 H Carbon Dioxide BUN 25 H Creatinine 0.4 L Glucose 122 H POC Glucose 118 H Lactic Acid Calcium Magnesium Iron TIBC Ferritin AST ALT Lactate Dehydrogenase Troponin T C-Reactive Protein Total Protein Albumin Prealbumin Cholesterol LDL Cholesterol Direct HDL Cholesterol Urine WBC (Auto) Vancomycin Trough Coronavirus (PCR) Crossmatch 07/12/19 07/12/19 07/12/19 08:49 11:36 18:15 WBC RBC Hgb Hct MCV MCH MCHC RDW Plt Count Lymph % (Auto) [place] % (Auto) Lymph # [place] # Baso # Seg Neutrophils % Seg Neuts % (Manual) Lymphocytes % (Manual) Monocytes % (Manual) Nucleated RBC % Seg Neutrophils # Seg Neutrophils # Man Lymphocytes # (Manual) Monocytes # (Manual) Basophils # (Manual) PT INR D-Dimer ABG pH ABG pO2 ABG HCO3 ABG O2 Saturation ABG Base Excess ABG Hemoglobin Oxyhemoglobin Sodium Potassium Chloride Carbon Dioxide BUN Creatinine Glucose POC Glucose 124 H 110 H Lactic Acid Calcium Magnesium Iron TIBC Ferritin AST ALT Lactate Dehydrogenase Troponin T C-Reactive Protein Total Protein Albumin Prealbumin Cholesterol LDL Cholesterol Direct HDL Cholesterol Urine WBC (Auto) Vancomycin Trough Coronavirus (PCR) Crossmatch See Detail 07/12/19 07/13/19 07/13/19 23:16 05:26 06:50 WBC 23.9 H RBC 2.58 L Hgb 6.9 L Hct 21.5 L MCV 83 L MCH 27 L MCHC RDW 19.0 H Plt Count Lymph % (Auto) [place] % (Auto) Lymph # [place] # Baso # Seg Neutrophils % Seg Neuts % (Manual) 96.0 H Lymphocytes % (Manual) 3.0 L Monocytes % (Manual) Nucleated RBC % Seg Neutrophils # Seg Neutrophils # Man 22.9 H Lymphocytes # (Manual) 0.7 L Monocytes # (Manual) Basophils # (Manual) PT INR D-Dimer ABG pH ABG pO2 ABG HCO3 ABG O2 Saturation ABG Base Excess ABG Hemoglobin Oxyhemoglobin Sodium Potassium Chloride Carbon Dioxide BUN Creatinine Glucose POC Glucose 108 H 126 H Lactic Acid Calcium Magnesium Iron TIBC Ferritin AST ALT Lactate Dehydrogenase Troponin T C-Reactive Protein Total Protein Albumin Prealbumin Cholesterol LDL Cholesterol Direct HDL Cholesterol Urine WBC (Auto) Vancomycin Trough Coronavirus (PCR) Crossmatch 07/13/19 07/13/19 07/13/19 06:50 12:38 18:05 WBC RBC Hgb Hct MCV MCH MCHC RDW Plt Count Lymph % (Auto) [place] % (Auto) Lymph # [place] # Baso # Seg Neutrophils % Seg Neuts % (Manual) Lymphocytes % (Manual) Monocytes % (Manual) Nucleated RBC % Seg Neutrophils # Seg Neutrophils # Man Lymphocytes # (Manual) Monocytes # (Manual) Basophils # (Manual) PT INR D-Dimer ABG pH ABG pO2 ABG HCO3 ABG O2 Saturation ABG Base Excess ABG Hemoglobin Oxyhemoglobin Sodium Potassium Chloride Carbon Dioxide BUN 33 H Creatinine 0.5 L Glucose 136 H POC Glucose 164 H 145 H Lactic Acid Calcium Magnesium Iron TIBC Ferritin AST ALT Lactate Dehydrogenase Troponin T C-Reactive Protein Total Protein Albumin Prealbumin Cholesterol LDL Cholesterol Direct HDL Cholesterol Urine WBC (Auto) Vancomycin Trough Coronavirus (PCR) Crossmatch 07/13/19 07/14/19 07/14/19 18:30 00:21 04:40 WBC 22.9 H RBC 2.45 L Hgb 6.6 L Hct 21.1 L MCV MCH 27 L MCHC 31 L RDW 19.2 H Plt Count Lymph % (Auto) [place] % (Auto) Lymph # [place] # Baso # Seg Neutrophils % Seg Neuts % (Manual) 91.0 H Lymphocytes % (Manual) 7.0 L Monocytes % (Manual) Nucleated RBC % Seg Neutrophils # Seg Neutrophils # Man 20.8 H Lymphocytes # (Manual) Monocytes # (Manual) Basophils # (Manual) PT INR D-Dimer ABG pH ABG pO2 58.1 L ABG HCO3 ABG O2 Saturation 88.7 L ABG Base Excess ABG Hemoglobin 7.8 L Oxyhemoglobin 86.8 L Sodium Potassium Chloride Carbon Dioxide BUN Creatinine Glucose POC Glucose 118 H Lactic Acid Calcium Magnesium Iron TIBC Ferritin AST ALT Lactate Dehydrogenase Troponin T C-Reactive Protein Total Protein Albumin Prealbumin Cholesterol LDL Cholesterol Direct HDL Cholesterol Urine WBC (Auto) Vancomycin Trough Coronavirus (PCR) Crossmatch 07/14/19 07/14/19 07/14/19 04:40 05:38 05:45 WBC RBC Hgb Hct MCV MCH MCHC RDW Plt Count Lymph % (Auto) [place] % (Auto) Lymph # [place] # Baso # Seg Neutrophils % Seg Neuts % (Manual) Lymphocytes % (Manual) Monocytes % (Manual) Nucleated RBC % Seg Neutrophils # Seg Neutrophils # Man Lymphocytes # (Manual) Monocytes # (Manual) Basophils # (Manual) PT INR D-Dimer ABG pH 7.230 L ABG pO2 72.1 L ABG HCO3 ABG O2 Saturation 89.3 L ABG Base Excess -2.7 L ABG Hemoglobin 6.7 L Oxyhemoglobin 87.7 L Sodium Potassium Chloride 107.4 H Carbon Dioxide BUN 45 H Creatinine Glucose 101 H POC Glucose 154 H Lactic Acid Calcium Magnesium Iron TIBC Ferritin AST ALT Lactate Dehydrogenase Troponin T C-Reactive Protein Total Protein Albumin Prealbumin Cholesterol LDL Cholesterol Direct HDL Cholesterol Urine WBC (Auto) Vancomycin Trough Coronavirus (PCR) Crossmatch 07/14/19 07/14/19 07/14/19 12:25 18:20 19:01 WBC 22.4 H RBC 2.70 L Hgb 7.5 L Hct 23.3 L MCV MCH MCHC RDW 19.5 H Plt Count Lymph % (Auto) [place] % (Auto) Lymph # [place] # Baso # Seg Neutrophils % Seg Neuts % (Manual) Lymphocytes % (Manual) Monocytes % (Manual) Nucleated RBC % Seg Neutrophils # Seg Neutrophils # Man Lymphocytes # (Manual) Monocytes # (Manual) Basophils # (Manual) PT INR D-Dimer ABG pH ABG pO2 ABG HCO3 ABG O2 Saturation ABG Base Excess ABG Hemoglobin Oxyhemoglobin Sodium Potassium Chloride Carbon Dioxide BUN Creatinine Glucose POC Glucose 136 H 131 H Lactic Acid Calcium Magnesium Iron TIBC Ferritin AST ALT Lactate Dehydrogenase Troponin T C-Reactive Protein Total Protein Albumin Prealbumin Cholesterol LDL Cholesterol Direct HDL Cholesterol Urine WBC (Auto) Vancomycin Trough Coronavirus (PCR) Crossmatch 07/15/19 07/15/19 07/15/19 00:17 04:35 05:18 WBC 20.6 H RBC 2.41 L Hgb 6.8 L Hct 20.7 L MCV MCH MCHC RDW 20.2 H Plt Count Lymph % (Auto) [place] % (Auto) Lymph # [place] # Baso # Seg Neutrophils % Seg Neuts % (Manual) 92.0 H Lymphocytes % (Manual) 5.0 L Monocytes % (Manual) Nucleated RBC % Seg Neutrophils # Seg Neutrophils # Man 19.0 H Lymphocytes # (Manual) 1.0 L Monocytes # (Manual) Basophils # (Manual) PT INR D-Dimer ABG pH 7.342 L ABG pO2 ABG HCO3 ABG O2 Saturation ABG Base Excess -3.1 L ABG Hemoglobin 7.2 L Oxyhemoglobin 94.9 L Sodium Potassium Chloride Carbon Dioxide BUN Creatinine Glucose POC Glucose 116 H Lactic Acid Calcium Magnesium Iron TIBC Ferritin AST ALT Lactate Dehydrogenase Troponin T C-Reactive Protein Total Protein Albumin Prealbumin Cholesterol LDL Cholesterol Direct HDL Cholesterol Urine WBC (Auto) Vancomycin Trough Coronavirus (PCR) Crossmatch 07/15/19 07/15/19 07/15/19 05:18 05:57 11:28 WBC RBC Hgb Hct MCV MCH MCHC RDW Plt Count Lymph % (Auto) [place] % (Auto) Lymph # [place] # Baso # Seg Neutrophils % Seg Neuts % (Manual) Lymphocytes % (Manual) Monocytes % (Manual) Nucleated RBC % Seg Neutrophils # Seg Neutrophils # Man Lymphocytes # (Manual) Monocytes # (Manual) Basophils # (Manual) PT INR D-Dimer ABG pH ABG pO2 ABG HCO3 ABG O2 Saturation ABG Base Excess ABG Hemoglobin Oxyhemoglobin Sodium Potassium Chloride Carbon Dioxide 20 L BUN 59 H Creatinine Glucose 140 H POC Glucose 139 H 117 H Lactic Acid Calcium Magnesium Iron TIBC Ferritin AST ALT Lactate Dehydrogenase Troponin T C-Reactive Protein Total Protein Albumin Prealbumin Cholesterol LDL Cholesterol Direct HDL Cholesterol Urine WBC (Auto) Vancomycin Trough Coronavirus (PCR) Crossmatch 07/15/19 07/16/19 07/16/19 18:13 00:06 03:43 WBC RBC Hgb Hct MCV MCH MCHC RDW Plt Count Lymph % (Auto) [place] % (Auto) Lymph # [place] # Baso # Seg Neutrophils % Seg Neuts % (Manual) Lymphocytes % (Manual) Monocytes % (Manual) Nucleated RBC % Seg Neutrophils # Seg Neutrophils # Man Lymphocytes # (Manual) Monocytes # (Manual) Basophils # (Manual) PT INR D-Dimer ABG pH 7.344 L ABG pO2 68.6 L ABG HCO3 ABG O2 Saturation ABG Base Excess -3.5 L ABG Hemoglobin 6.1 L Oxyhemoglobin 93.3 L Sodium Potassium Chloride Carbon Dioxide BUN Creatinine Glucose POC Glucose 114 H 119 H Lactic Acid Calcium Magnesium Iron TIBC Ferritin AST ALT Lactate Dehydrogenase Troponin T C-Reactive Protein Total Protein Albumin Prealbumin Cholesterol LDL Cholesterol Direct HDL Cholesterol Urine WBC (Auto) Vancomycin Trough Coronavirus (PCR) Crossmatch 07/16/19 07/16/19 07/16/19 04:41 04:41 12:09 WBC 19.6 H RBC 2.81 L Hgb 7.7 L Hct 24.0 L MCV MCH 27 L MCHC RDW 19.4 H Plt Count 514 H Lymph % (Auto) 6.7 L [place] % (Auto) Lymph # [place] # 1.0 H Baso # Seg Neutrophils % 87.0 H Seg Neuts % (Manual) Lymphocytes % (Manual) Monocytes % (Manual) Nucleated RBC % Seg Neutrophils # 17.0 H Seg Neutrophils # Man Lymphocytes # (Manual) Monocytes # (Manual) Basophils # (Manual) PT INR D-Dimer ABG pH ABG pO2 ABG HCO3 ABG O2 Saturation ABG Base Excess ABG Hemoglobin Oxyhemoglobin Sodium Potassium 5.9 H Chloride Carbon Dioxide 21 L BUN 73 H Creatinine 2.0 H Glucose POC Glucose 141 H Lactic Acid Calcium Magnesium Iron TIBC Ferritin AST ALT Lactate Dehydrogenase Troponin T C-Reactive Protein Total Protein Albumin Prealbumin Cholesterol LDL Cholesterol Direct HDL Cholesterol Urine WBC (Auto) Vancomycin Trough Coronavirus (PCR) Crossmatch 07/16/19 07/16/19 07/17/19 16:19 17:45 00:16 WBC RBC Hgb Hct MCV MCH MCHC RDW Plt Count Lymph % (Auto) [place] % (Auto) Lymph # [place] # Baso # Seg Neutrophils % Seg Neuts % (Manual) Lymphocytes % (Manual) Monocytes % (Manual) Nucleated RBC % Seg Neutrophils # Seg Neutrophils # Man Lymphocytes # (Manual) Monocytes # (Manual) Basophils # (Manual) PT INR D-Dimer ABG pH ABG pO2 ABG HCO3 ABG O2 Saturation ABG Base Excess ABG Hemoglobin Oxyhemoglobin Sodium Potassium 5.1 H Chloride Carbon Dioxide 20 L BUN 72 H Creatinine 1.7 H Glucose 128 H POC Glucose 181 H 164 H Lactic Acid Calcium Magnesium Iron TIBC Ferritin AST ALT Lactate Dehydrogenase Troponin T C-Reactive Protein Total Protein Albumin Prealbumin Cholesterol LDL Cholesterol Direct HDL Cholesterol Urine WBC (Auto) Vancomycin Trough Coronavirus (PCR) Crossmatch 07/17/19 07/17/19 07/17/19 04:20 04:39 04:39 WBC 16.1 H RBC 2.92 L Hgb 8.0 L Hct 25.5 L MCV MCH MCHC 31 L RDW 19.7 H Plt Count 564 H Lymph % (Auto) 3.6 L [place] % (Auto) 7.4 H Lymph # 0.6 L [place] # 1.2 H Baso # Seg Neutrophils % 87.5 H Seg Neuts % (Manual) Lymphocytes % (Manual) Monocytes % (Manual) Nucleated RBC % Seg Neutrophils # 14.1 H Seg Neutrophils # Man Lymphocytes # (Manual) Monocytes # (Manual) Basophils # (Manual) PT INR D-Dimer ABG pH 7.231 L ABG pO2 95.3 H ABG HCO3 ABG O2 Saturation ABG Base Excess -5.0 L ABG Hemoglobin 7.9 L Oxyhemoglobin 94.8 L Sodium Potassium Chloride 107.8 H Carbon Dioxide 21 L BUN 68 H Creatinine Glucose POC Glucose Lactic Acid Calcium Magnesium Iron TIBC Ferritin AST ALT Lactate Dehydrogenase Troponin T C-Reactive Protein Total Protein Albumin Prealbumin Cholesterol LDL Cholesterol Direct HDL Cholesterol Urine WBC (Auto) Vancomycin Trough Coronavirus (PCR) Crossmatch 07/17/19 07/17/19 07/17/19 05:28 12:11 18:48 WBC RBC Hgb Hct MCV MCH MCHC RDW Plt Count Lymph % (Auto) [place] % (Auto) Lymph # [place] # Baso # Seg Neutrophils % Seg Neuts % (Manual) Lymphocytes % (Manual) Monocytes % (Manual) Nucleated RBC % Seg Neutrophils # Seg Neutrophils # Man Lymphocytes # (Manual) Monocytes # (Manual) Basophils # (Manual) PT INR D-Dimer ABG pH ABG pO2 ABG HCO3 ABG O2 Saturation ABG Base Excess ABG Hemoglobin Oxyhemoglobin Sodium Potassium Chloride Carbon Dioxide BUN Creatinine Glucose POC Glucose 121 H 125 H 174 H Lactic Acid Calcium Magnesium Iron TIBC Ferritin AST ALT Lactate Dehydrogenase Troponin T C-Reactive Protein Total Protein Albumin Prealbumin Cholesterol LDL Cholesterol Direct HDL Cholesterol Urine WBC (Auto) Vancomycin Trough Coronavirus (PCR) Crossmatch 07/17/19 07/17/19 07/18/19 19:55 23:57 02:30 WBC RBC Hgb Hct MCV MCH MCHC RDW Plt Count Lymph % (Auto) [place] % (Auto) Lymph # [place] # Baso # Seg Neutrophils % Seg Neuts % (Manual) Lymphocytes % (Manual) Monocytes % (Manual) Nucleated RBC % Seg Neutrophils # Seg Neutrophils # Man Lymphocytes # (Manual) Monocytes # (Manual) Basophils # (Manual) PT INR D-Dimer ABG pH 7.344 L 7.294 L ABG pO2 78.5 L 119.2 H ABG HCO3 ABG O2 Saturation ABG Base Excess -3.3 L -2.6 L ABG Hemoglobin 8.6 L 8.1 L Oxyhemoglobin 94.8 L Sodium Potassium Chloride Carbon Dioxide BUN Creatinine Glucose POC Glucose 148 H Lactic Acid Calcium Magnesium Iron TIBC Ferritin AST ALT Lactate Dehydrogenase Troponin T C-Reactive Protein Total Protein Albumin Prealbumin Cholesterol LDL Cholesterol Direct HDL Cholesterol Urine WBC (Auto) Vancomycin Trough Coronavirus (PCR) Crossmatch 07/18/19 07/18/19 07/18/19 04:49 05:22 05:22 WBC 15.9 H RBC 3.00 L Hgb 8.1 L Hct 26.0 L MCV MCH 27 L MCHC 31 L RDW 19.4 H Plt Count 733 H Lymph % (Auto) 6.3 L [place] % (Auto) 7.4 H Lymph # 1.0 L [place] # 1.2 H Baso # 0.2 H Seg Neutrophils % 83.8 H Seg Neuts % (Manual) Lymphocytes % (Manual) Monocytes % (Manual) Nucleated RBC % Seg Neutrophils # 13.3 H Seg Neutrophils # Man Lymphocytes # (Manual) Monocytes # (Manual) Basophils # (Manual) PT INR D-Dimer ABG pH ABG pO2 ABG HCO3 ABG O2 Saturation ABG Base Excess ABG Hemoglobin Oxyhemoglobin Sodium Potassium Chloride 110.6 H Carbon Dioxide BUN 61 H Creatinine Glucose 109 H POC Glucose 116 H Lactic Acid Calcium Magnesium Iron TIBC Ferritin AST ALT Lactate Dehydrogenase Troponin T C-Reactive Protein Total Protein Albumin Prealbumin Cholesterol LDL Cholesterol Direct HDL Cholesterol Urine WBC (Auto) Vancomycin Trough Coronavirus (PCR) Crossmatch 07/18/19 07/18/19 07/18/19 12:23 18:06 22:20 WBC RBC Hgb Hct MCV MCH MCHC RDW Plt Count Lymph % (Auto) [place] % (Auto) Lymph # [place] # Baso # Seg Neutrophils % Seg Neuts % (Manual) Lymphocytes % (Manual) Monocytes % (Manual) Nucleated RBC % Seg Neutrophils # Seg Neutrophils # Man Lymphocytes # (Manual) Monocytes # (Manual) Basophils # (Manual) PT INR D-Dimer ABG pH 7.338 L ABG pO2 135.1 H ABG HCO3 ABG O2 Saturation ABG Base Excess ABG Hemoglobin 9.2 L Oxyhemoglobin Sodium Potassium Chloride Carbon Dioxide BUN Creatinine Glucose POC Glucose 114 H 113 H Lactic Acid Calcium Magnesium Iron TIBC Ferritin AST ALT Lactate Dehydrogenase Troponin T C-Reactive Protein Total Protein Albumin Prealbumin Cholesterol LDL Cholesterol Direct HDL Cholesterol Urine WBC (Auto) Vancomycin Trough Coronavirus (PCR) Crossmatch 07/18/19 07/19/19 07/19/19 23:33 03:45 05:18 WBC RBC Hgb Hct MCV MCH MCHC RDW Plt Count Lymph % (Auto) [place] % (Auto) Lymph # [place] # Baso # Seg Neutrophils % Seg Neuts % (Manual) Lymphocytes % (Manual) Monocytes % (Manual) Nucleated RBC % Seg Neutrophils # Seg Neutrophils # Man Lymphocytes # (Manual) Monocytes # (Manual) Basophils # (Manual) PT INR D-Dimer ABG pH 7.342 L ABG pO2 95.0 H ABG HCO3 ABG O2 Saturation ABG Base Excess ABG Hemoglobin 8.5 L Oxyhemoglobin Sodium Potassium Chloride Carbon Dioxide BUN Creatinine Glucose POC Glucose 125 H 111 H Lactic Acid Calcium Magnesium Iron TIBC Ferritin AST ALT Lactate Dehydrogenase Troponin T C-Reactive Protein Total Protein Albumin Prealbumin Cholesterol LDL Cholesterol Direct HDL Cholesterol Urine WBC (Auto) Vancomycin Trough Coronavirus (PCR) Crossmatch 07/19/19 07/19/19 07/19/19 08:45 08:45 11:47 WBC 15.9 H RBC 3.31 L Hgb 9.1 L Hct 28.4 L MCV MCH 27 L MCHC RDW 19.1 H Plt Count 858 H Lymph % (Auto) 4.9 L [place] % (Auto) 8.1 H Lymph # 0.8 L [place] # 1.3 H Baso # Seg Neutrophils % 85.5 H Seg Neuts % (Manual) Lymphocytes % (Manual) Monocytes % (Manual) Nucleated RBC % Seg Neutrophils # 13.6 H Seg Neutrophils # Man Lymphocytes # (Manual) Monocytes # (Manual) Basophils # (Manual) PT INR D-Dimer ABG pH ABG pO2 ABG HCO3 ABG O2 Saturation ABG Base Excess ABG Hemoglobin Oxyhemoglobin Sodium Potassium Chloride 111.6 H Carbon Dioxide BUN 50 H Creatinine 0.7 L Glucose 118 H POC Glucose 114 H Lactic Acid Calcium Magnesium Iron TIBC Ferritin AST ALT Lactate Dehydrogenase Troponin T C-Reactive Protein Total Protein Albumin Prealbumin Cholesterol LDL Cholesterol Direct HDL Cholesterol Urine WBC (Auto) Vancomycin Trough Coronavirus (PCR) Crossmatch 07/19/19 07/19/19 07/20/19 18:25 23:44 04:39 WBC RBC Hgb Hct MCV MCH MCHC RDW Plt Count Lymph % (Auto) [place] % (Auto) Lymph # [place] # Baso # Seg Neutrophils % Seg Neuts % (Manual) Lymphocytes % (Manual) Monocytes % (Manual) Nucleated RBC % Seg Neutrophils # Seg Neutrophils # Man Lymphocytes # (Manual) Monocytes # (Manual) Basophils # (Manual) PT INR D-Dimer ABG pH ABG pO2 ABG HCO3 ABG O2 Saturation ABG Base Excess ABG Hemoglobin Oxyhemoglobin Sodium Potassium Chloride 110.3 H Carbon Dioxide BUN 44 H Creatinine 0.6 L Glucose 120 H POC Glucose 115 H 117 H Lactic Acid Calcium Magnesium Iron TIBC Ferritin AST ALT Lactate Dehydrogenase Troponin T C-Reactive Protein Total Protein Albumin Prealbumin Cholesterol LDL Cholesterol Direct HDL Cholesterol Urine WBC (Auto) Vancomycin Trough Coronavirus (PCR) Crossmatch 07/20/19 07/21/19 07/21/19 05:30 11:59 17:40 WBC RBC Hgb Hct MCV MCH MCHC RDW Plt Count Lymph % (Auto) [place] % (Auto) Lymph # [place] # Baso # Seg Neutrophils % Seg Neuts % (Manual) Lymphocytes % (Manual) Monocytes % (Manual) Nucleated RBC % Seg Neutrophils # Seg Neutrophils # Man Lymphocytes # (Manual) Monocytes # (Manual) Basophils # (Manual) PT INR D-Dimer ABG pH ABG pO2 ABG HCO3 ABG O2 Saturation ABG Base Excess ABG Hemoglobin Oxyhemoglobin Sodium Potassium Chloride Carbon Dioxide BUN Creatinine Glucose POC Glucose 131 H 122 H 125 H Lactic Acid Calcium Magnesium Iron TIBC Ferritin AST ALT Lactate Dehydrogenase Troponin T C-Reactive Protein Total Protein Albumin Prealbumin Cholesterol LDL Cholesterol Direct HDL Cholesterol Urine WBC (Auto) Vancomycin Trough Coronavirus (PCR) Crossmatch 07/22/19 07/22/19 07/22/19 05:38 05:38 12:29 WBC 12.6 H RBC 3.19 L Hgb 8.9 L Hct 27.5 L MCV MCH MCHC RDW 18.9 H Plt Count 1101 H* Lymph % (Auto) [place] % (Auto) 12.2 H Lymph # [place] # 1.5 H Baso # Seg Neutrophils % 72.8 H Seg Neuts % (Manual) 76.0 H Lymphocytes % (Manual) 7.0 L Monocytes % (Manual) 14.0 H Nucleated RBC % 1.0 H Seg Neutrophils # 9.2 H Seg Neutrophils # Man 9.6 H Lymphocytes # (Manual) 0.9 L Monocytes # (Manual) 1.8 H Basophils # (Manual) PT INR D-Dimer ABG pH ABG pO2 ABG HCO3 ABG O2 Saturation ABG Base Excess ABG Hemoglobin Oxyhemoglobin Sodium Potassium 3.4 L Chloride Carbon Dioxide BUN 29 H Creatinine 0.5 L Glucose POC Glucose 116 H Lactic Acid Calcium Magnesium Iron TIBC Ferritin AST ALT Lactate Dehydrogenase Troponin T C-Reactive Protein Total Protein Albumin Prealbumin Cholesterol LDL Cholesterol Direct HDL Cholesterol Urine WBC (Auto) Vancomycin Trough Coronavirus (PCR) Crossmatch 07/22/19 07/22/19 07/23/19 18:20 23:51 04:52 WBC RBC Hgb Hct MCV MCH MCHC RDW Plt Count Lymph % (Auto) [place] % (Auto) Lymph # [place] # Baso # Seg Neutrophils % Seg Neuts % (Manual) Lymphocytes % (Manual) Monocytes % (Manual) Nucleated RBC % Seg Neutrophils # Seg Neutrophils # Man Lymphocytes # (Manual) Monocytes # (Manual) Basophils # (Manual) PT INR D-Dimer ABG pH ABG pO2 ABG HCO3 ABG O2 Saturation ABG Base Excess ABG Hemoglobin Oxyhemoglobin Sodium Potassium Chloride Carbon Dioxide BUN 24 H Creatinine 0.4 L Glucose POC Glucose 107 H 110 H Lactic Acid Calcium Magnesium Iron TIBC Ferritin AST ALT Lactate Dehydrogenase Troponin T C-Reactive Protein Total Protein Albumin Prealbumin Cholesterol LDL Cholesterol Direct HDL Cholesterol Urine WBC (Auto) Vancomycin Trough Coronavirus (PCR) Crossmatch 07/23/19 07/23/19 07/24/19 06:00 23:15 04:40 WBC RBC Hgb Hct MCV MCH MCHC RDW Plt Count Lymph % (Auto) [place] % (Auto) Lymph # [place] # Baso # Seg Neutrophils % Seg Neuts % (Manual) Lymphocytes % (Manual) Monocytes % (Manual) Nucleated RBC % Seg Neutrophils # Seg Neutrophils # Man Lymphocytes # (Manual) Monocytes # (Manual) Basophils # (Manual) PT INR D-Dimer ABG pH ABG pO2 73.5 L ABG HCO3 27.0 H 28.5 H ABG O2 Saturation 94.5 L ABG Base Excess ABG Hemoglobin 9.4 L 8.9 L Oxyhemoglobin 94.0 L 92.7 L Sodium Potassium Chloride Carbon Dioxide BUN Creatinine Glucose POC Glucose 117 H Lactic Acid Calcium Magnesium Iron TIBC Ferritin AST ALT Lactate Dehydrogenase Troponin T C-Reactive Protein Total Protein Albumin Prealbumin Cholesterol LDL Cholesterol Direct HDL Cholesterol Urine WBC (Auto) Vancomycin Trough Coronavirus (PCR) Crossmatch 07/24/19 07/24/19 07/25/19 05:25 12:06 00:16 WBC RBC Hgb Hct MCV MCH MCHC RDW Plt Count Lymph % (Auto) [place] % (Auto) Lymph # [place] # Baso # Seg Neutrophils % Seg Neuts % (Manual) Lymphocytes % (Manual) Monocytes % (Manual) Nucleated RBC % Seg Neutrophils # Seg Neutrophils # Man Lymphocytes # (Manual) Monocytes # (Manual) Basophils # (Manual) PT INR D-Dimer ABG pH ABG pO2 ABG HCO3 ABG O2 Saturation ABG Base Excess ABG Hemoglobin Oxyhemoglobin Sodium Potassium Chloride Carbon Dioxide BUN Creatinine Glucose POC Glucose 114 H 108 H 106 H Lactic Acid Calcium Magnesium Iron TIBC Ferritin AST ALT Lactate Dehydrogenase Troponin T C-Reactive Protein Total Protein Albumin Prealbumin Cholesterol LDL Cholesterol Direct HDL Cholesterol Urine WBC (Auto) Vancomycin Trough Coronavirus (PCR) Crossmatch 07/25/19 07/25/19 07/25/19 05:14 05:14 05:17 WBC 17.8 H RBC 3.32 L Hgb 9.2 L Hct 28.6 L MCV MCH MCHC RDW 19.9 H Plt Count 994 H Lymph % (Auto) [place] % (Auto) Lymph # [place] # Baso # Seg Neutrophils % Seg Neuts % (Manual) 82.0 H Lymphocytes % (Manual) 5.0 L Monocytes % (Manual) Nucleated RBC % Seg Neutrophils # Seg Neutrophils # Man 14.6 H Lymphocytes # (Manual) 0.9 L Monocytes # (Manual) 1.2 H Basophils # (Manual) PT INR D-Dimer ABG pH ABG pO2 ABG HCO3 ABG O2 Saturation ABG Base Excess ABG Hemoglobin Oxyhemoglobin Sodium Potassium Chloride Carbon Dioxide BUN Creatinine 0.4 L Glucose 110 H POC Glucose 107 H Lactic Acid Calcium Magnesium Iron TIBC Ferritin AST ALT Lactate Dehydrogenase Troponin T C-Reactive Protein Total Protein Albumin Prealbumin Cholesterol LDL Cholesterol Direct HDL Cholesterol Urine WBC (Auto) Vancomycin Trough Coronavirus (PCR) Crossmatch 07/25/19 07/25/19 07/26/19 11:55 23:49 06:01 WBC RBC Hgb Hct MCV MCH MCHC RDW Plt Count Lymph % (Auto) [place] % (Auto) Lymph # [place] # Baso # Seg Neutrophils % Seg Neuts % (Manual) Lymphocytes % (Manual) Monocytes % (Manual) Nucleated RBC % Seg Neutrophils # Seg Neutrophils # Man Lymphocytes # (Manual) Monocytes # (Manual) Basophils # (Manual) PT INR D-Dimer ABG pH ABG pO2 ABG HCO3 ABG O2 Saturation ABG Base Excess ABG Hemoglobin Oxyhemoglobin Sodium Potassium Chloride Carbon Dioxide BUN Creatinine Glucose POC Glucose 123 H 118 H 106 H Lactic Acid Calcium Magnesium Iron TIBC Ferritin AST ALT Lactate Dehydrogenase Troponin T C-Reactive Protein Total Protein Albumin Prealbumin Cholesterol LDL Cholesterol Direct HDL Cholesterol Urine WBC (Auto) Vancomycin Trough Coronavirus (PCR) Crossmatch 07/26/19 07/27/19 07/27/19 17:02 00:28 05:16 WBC RBC Hgb Hct MCV MCH MCHC RDW Plt Count Lymph % (Auto) [place] % (Auto) Lymph # [place] # Baso # Seg Neutrophils % Seg Neuts % (Manual) Lymphocytes % (Manual) Monocytes % (Manual) Nucleated RBC % Seg Neutrophils # Seg Neutrophils # Man Lymphocytes # (Manual) Monocytes # (Manual) Basophils # (Manual) PT INR D-Dimer ABG pH ABG pO2 63.4 L ABG HCO3 31.3 H ABG O2 Saturation 92.7 L ABG Base Excess 6.3 H ABG Hemoglobin 7.6 L Oxyhemoglobin 90.9 L Sodium Potassium Chloride Carbon Dioxide BUN Creatinine Glucose POC Glucose 116 H 158 H Lactic Acid Calcium Magnesium Iron TIBC Ferritin AST ALT Lactate Dehydrogenase Troponin T C-Reactive Protein Total Protein Albumin Prealbumin Cholesterol LDL Cholesterol Direct HDL Cholesterol Urine WBC (Auto) Vancomycin Trough Coronavirus (PCR) Crossmatch 07/28/19 07/28/19 07/28/19 10:13 10:13 23:54 WBC 18.5 H RBC 3.20 L Hgb 8.8 L Hct 26.8 L MCV MCH 27 L MCHC RDW 19.9 H Plt Count 730 H Lymph % (Auto) [place] % (Auto) Lymph # [place] # Baso # Seg Neutrophils % Seg Neuts % (Manual) Lymphocytes % (Manual) Monocytes % (Manual) Nucleated RBC % Seg Neutrophils # Seg Neutrophils # Man Lymphocytes # (Manual) Monocytes # (Manual) Basophils # (Manual) PT INR D-Dimer ABG pH ABG pO2 ABG HCO3 ABG O2 Saturation ABG Base Excess ABG Hemoglobin Oxyhemoglobin Sodium Potassium 3.2 L Chloride 97.5 L Carbon Dioxide 31 H BUN Creatinine 0.5 L Glucose POC Glucose 120 H Lactic Acid Calcium Magnesium Iron TIBC Ferritin AST ALT Lactate Dehydrogenase Troponin T C-Reactive Protein Total Protein Albumin Prealbumin Cholesterol LDL Cholesterol Direct HDL Cholesterol Urine WBC (Auto) Vancomycin Trough Coronavirus (PCR) Crossmatch 07/29/19 07/29/19 07/29/19 11:57 17:43 Unknown WBC RBC Hgb Hct MCV MCH MCHC RDW Plt Count Lymph % (Auto) [place] % (Auto) Lymph # [place] # Baso # Seg Neutrophils % Seg Neuts % (Manual) Lymphocytes % (Manual) Monocytes % (Manual) Nucleated RBC % Seg Neutrophils # Seg Neutrophils # Man Lymphocytes # (Manual) Monocytes # (Manual) Basophils # (Manual) PT INR D-Dimer ABG pH ABG pO2 ABG HCO3 ABG O2 Saturation ABG Base Excess ABG Hemoglobin Oxyhemoglobin Sodium Potassium Chloride Carbon Dioxide BUN Creatinine Glucose POC Glucose 112 H Lactic Acid Calcium Magnesium Iron TIBC Ferritin AST ALT Lactate Dehydrogenase Troponin T C-Reactive Protein Total Protein Albumin Prealbumin Cholesterol LDL Cholesterol Direct HDL Cholesterol Urine WBC (Auto) 63.0 H Vancomycin Trough Coronavirus (PCR) Positive A Crossmatch 07/30/19 07/30/19 07/30/19 00:20 04:35 04:35 WBC 24.3 H RBC 3.12 L Hgb 8.5 L Hct 26.3 L MCV MCH 27 L MCHC RDW 20.2 H Plt Count 550 H Lymph % (Auto) [place] % (Auto) Lymph # [place] # Baso # Seg Neutrophils % Seg Neuts % (Manual) Lymphocytes % (Manual) Monocytes % (Manual) Nucleated RBC % Seg Neutrophils # Seg Neutrophils # Man Lymphocytes # (Manual) Monocytes # (Manual) Basophils # (Manual) PT INR D-Dimer ABG pH ABG pO2 ABG HCO3 ABG O2 Saturation ABG Base Excess ABG Hemoglobin Oxyhemoglobin Sodium Potassium 3.0 L Chloride 96.3 L Carbon Dioxide 32 H BUN Creatinine 0.5 L Glucose POC Glucose 106 H Lactic Acid Calcium Magnesium Iron TIBC Ferritin AST ALT Lactate Dehydrogenase Troponin T C-Reactive Protein Total Protein Albumin Prealbumin Cholesterol LDL Cholesterol Direct HDL Cholesterol Urine WBC (Auto) Vancomycin Trough Coronavirus (PCR) Crossmatch 07/31/19 07/31/19 07/31/19 04:42 04:42 11:33 WBC 23.8 H RBC 3.10 L Hgb 8.4 L Hct 26.1 L MCV MCH 27 L MCHC RDW 19.6 H Plt Count 561 H Lymph % (Auto) [place] % (Auto) Lymph # [place] # Baso # Seg Neutrophils % Seg Neuts % (Manual) Lymphocytes % (Manual) Monocytes % (Manual) Nucleated RBC % Seg Neutrophils # Seg Neutrophils # Man Lymphocytes # (Manual) Monocytes # (Manual) Basophils # (Manual) PT INR D-Dimer ABG pH ABG pO2 ABG HCO3 ABG O2 Saturation ABG Base Excess ABG Hemoglobin Oxyhemoglobin Sodium 135 L Potassium Chloride 93.9 L Carbon Dioxide 32 H BUN Creatinine 0.4 L Glucose POC Glucose 116 H Lactic Acid Calcium Magnesium Iron TIBC Ferritin AST ALT Lactate Dehydrogenase Troponin T C-Reactive Protein Total Protein Albumin 1.6 L Prealbumin 0.037 L Cholesterol LDL Cholesterol Direct HDL Cholesterol Urine WBC (Auto) Vancomycin Trough Coronavirus (PCR) Crossmatch 07/31/19 08/01/19 08/01/19 23:33 04:57 04:57 WBC 26.7 H RBC 3.12 L Hgb 8.5 L Hct 26.3 L MCV MCH 27 L MCHC RDW 19.2 H Plt Count 602 H Lymph % (Auto) [place] % (Auto) Lymph # [place] # Baso # Seg Neutrophils % Seg Neuts % (Manual) 93.0 H Lymphocytes % (Manual) 2.0 L Monocytes % (Manual) Nucleated RBC % Seg Neutrophils # Seg Neutrophils # Man 24.8 H Lymphocytes # (Manual) 0.5 L Monocytes # (Manual) 1.1 H Basophils # (Manual) PT INR D-Dimer ABG pH ABG pO2 ABG HCO3 ABG O2 Saturation ABG Base Excess ABG Hemoglobin Oxyhemoglobin Sodium 132 L Potassium Chloride 93.8 L Carbon Dioxide 31 H BUN Creatinine 0.3 L Glucose POC Glucose 148 H Lactic Acid Calcium 8.1 L Magnesium Iron TIBC Ferritin AST ALT Lactate Dehydrogenase Troponin T C-Reactive Protein Total Protein Albumin Prealbumin Cholesterol LDL Cholesterol Direct HDL Cholesterol Urine WBC (Auto) Vancomycin Trough Coronavirus (PCR) Crossmatch 08/01/19 08/02/19 08/02/19 12:16 00:22 05:24 WBC RBC Hgb Hct MCV MCH MCHC RDW Plt Count Lymph % (Auto) [place] % (Auto) Lymph # [place] # Baso # Seg Neutrophils % Seg Neuts % (Manual) Lymphocytes % (Manual) Monocytes % (Manual) Nucleated RBC % Seg Neutrophils # Seg Neutrophils # Man Lymphocytes # (Manual) Monocytes # (Manual) Basophils # (Manual) PT INR D-Dimer ABG pH ABG pO2 ABG HCO3 ABG O2 Saturation ABG Base Excess ABG Hemoglobin Oxyhemoglobin Sodium Potassium Chloride Carbon Dioxide BUN Creatinine Glucose POC Glucose 120 H 119 H 113 H Lactic Acid Calcium Magnesium Iron TIBC Ferritin AST ALT Lactate Dehydrogenase Troponin T C-Reactive Protein Total Protein Albumin Prealbumin Cholesterol LDL Cholesterol Direct HDL Cholesterol Urine WBC (Auto) Vancomycin Trough Coronavirus (PCR) Crossmatch 08/03/19 08/03/19 08/03/19 05:20 12:01 23:48 WBC RBC Hgb Hct MCV MCH MCHC RDW Plt Count Lymph % (Auto) [place] % (Auto) Lymph # [place] # Baso # Seg Neutrophils % Seg Neuts % (Manual) Lymphocytes % (Manual) Monocytes % (Manual) Nucleated RBC % Seg Neutrophils # Seg Neutrophils # Man Lymphocytes # (Manual) Monocytes # (Manual) Basophils # (Manual) PT INR D-Dimer ABG pH ABG pO2 ABG HCO3 ABG O2 Saturation ABG Base Excess ABG Hemoglobin Oxyhemoglobin Sodium Potassium Chloride Carbon Dioxide BUN Creatinine Glucose POC Glucose 118 H 106 H 120 H Lactic Acid Calcium Magnesium Iron TIBC Ferritin AST ALT Lactate Dehydrogenase Troponin T C-Reactive Protein Total Protein Albumin Prealbumin Cholesterol LDL Cholesterol Direct HDL Cholesterol Urine WBC (Auto) Vancomycin Trough Coronavirus (PCR) Crossmatch 08/04/19 08/04/19 08/04/19 05:38 05:38 06:29 WBC 26.1 H RBC 2.77 L Hgb 7.5 L Hct 23.2 L MCV MCH 27 L MCHC RDW 19.2 H Plt Count 648 H Lymph % (Auto) [place] % (Auto) Lymph # [place] # Baso # Seg Neutrophils % Seg Neuts % (Manual) 90.5 H Lymphocytes % (Manual) 3.5 L Monocytes % (Manual) Nucleated RBC % Seg Neutrophils # Seg Neutrophils # Man 23.6 H Lymphocytes # (Manual) 0.9 L Monocytes # (Manual) 1.2 H Basophils # (Manual) PT INR D-Dimer ABG pH ABG pO2 ABG HCO3 ABG O2 Saturation ABG Base Excess ABG Hemoglobin Oxyhemoglobin Sodium 132 L Potassium 3.4 L D Chloride 92.7 L Carbon Dioxide 33 H BUN Creatinine 0.2 L Glucose POC Glucose 108 H Lactic Acid Calcium 8.1 L Magnesium Iron TIBC Ferritin AST ALT Lactate Dehydrogenase Troponin T C-Reactive Protein Total Protein Albumin Prealbumin Cholesterol LDL Cholesterol Direct HDL Cholesterol Urine WBC (Auto) Vancomycin Trough Coronavirus (PCR) Crossmatch 08/04/19 08/05/19 08/05/19 12:30 04:58 04:58 WBC 21.0 H RBC 2.63 L Hgb 7.2 L Hct 21.9 L MCV 83 L MCH 27 L MCHC RDW 18.9 H Plt Count 691 H Lymph % (Auto) [place] % (Auto) Lymph # [place] # Baso # Seg Neutrophils % Seg Neuts % (Manual) 86.0 H Lymphocytes % (Manual) 3.0 L Monocytes % (Manual) 10.0 H Nucleated RBC % Seg Neutrophils # Seg Neutrophils # Man 18.1 H Lymphocytes # (Manual) 0.6 L Monocytes # (Manual) 2.1 H Basophils # (Manual) PT INR D-Dimer ABG pH ABG pO2 ABG HCO3 ABG O2 Saturation ABG Base Excess ABG Hemoglobin Oxyhemoglobin Sodium 134 L Potassium 3.2 L Chloride 93.2 L Carbon Dioxide 34 H BUN 8 L Creatinine 0.3 L Glucose POC Glucose 138 H Lactic Acid Calcium 8.1 L Magnesium Iron TIBC Ferritin AST ALT Lactate Dehydrogenase Troponin T C-Reactive Protein Total Protein Albumin Prealbumin Cholesterol LDL Cholesterol Direct HDL Cholesterol Urine WBC (Auto) Vancomycin Trough Coronavirus (PCR) Crossmatch 08/05/19 08/05/19 08/05/19 11:53 17:57 23:58 WBC RBC Hgb Hct MCV MCH MCHC RDW Plt Count Lymph % (Auto) [place] % (Auto) Lymph # [place] # Baso # Seg Neutrophils % Seg Neuts % (Manual) Lymphocytes % (Manual) Monocytes % (Manual) Nucleated RBC % Seg Neutrophils # Seg Neutrophils # Man Lymphocytes # (Manual) Monocytes # (Manual) Basophils # (Manual) PT INR D-Dimer ABG pH ABG pO2 ABG HCO3 ABG O2 Saturation ABG Base Excess ABG Hemoglobin Oxyhemoglobin Sodium Potassium Chloride Carbon Dioxide BUN Creatinine Glucose POC Glucose 106 H 111 H 116 H Lactic Acid Calcium Magnesium Iron TIBC Ferritin AST ALT Lactate Dehydrogenase Troponin T C-Reactive Protein Total Protein Albumin Prealbumin Cholesterol LDL Cholesterol Direct HDL Cholesterol Urine WBC (Auto) Vancomycin Trough Coronavirus (PCR) Crossmatch 08/06/19 08/06/19 08/06/19 04:11 04:11 06:04 WBC 20.8 H RBC 2.80 L Hgb 7.6 L Hct 23.5 L MCV MCH 27 L MCHC RDW 19.0 H Plt Count 723 H Lymph % (Auto) [place] % (Auto) Lymph # [place] # Baso # Seg Neutrophils % Seg Neuts % (Manual) 88.0 H Lymphocytes % (Manual) 3.0 L Monocytes % (Manual) Nucleated RBC % Seg Neutrophils # Seg Neutrophils # Man 18.3 H Lymphocytes # (Manual) 0.6 L Monocytes # (Manual) Basophils # (Manual) 0.2 H PT INR D-Dimer ABG pH ABG pO2 ABG HCO3 ABG O2 Saturation ABG Base Excess ABG Hemoglobin Oxyhemoglobin Sodium Potassium 3.4 L Chloride 95.2 L Carbon Dioxide 32 H BUN Creatinine 0.3 L Glucose POC Glucose 108 H Lactic Acid Calcium 8.2 L Magnesium Iron TIBC Ferritin AST ALT Lactate Dehydrogenase Troponin T C-Reactive Protein Total Protein Albumin Prealbumin Cholesterol LDL Cholesterol Direct HDL Cholesterol Urine WBC (Auto) Vancomycin Trough Coronavirus (PCR) Crossmatch 08/06/19 08/06/19 08/07/19 12:23 17:13 00:21 WBC RBC Hgb Hct MCV MCH MCHC RDW Plt Count Lymph % (Auto) [place] % (Auto) Lymph # [place] # Baso # Seg Neutrophils % Seg Neuts % (Manual) Lymphocytes % (Manual) Monocytes % (Manual) Nucleated RBC % Seg Neutrophils # Seg Neutrophils # Man Lymphocytes # (Manual) Monocytes # (Manual) Basophils # (Manual) PT INR D-Dimer ABG pH ABG pO2 ABG HCO3 ABG O2 Saturation ABG Base Excess ABG Hemoglobin Oxyhemoglobin Sodium Potassium Chloride Carbon Dioxide BUN Creatinine Glucose POC Glucose 112 H 132 H 147 H Lactic Acid Calcium Magnesium Iron TIBC Ferritin AST ALT Lactate Dehydrogenase Troponin T C-Reactive Protein Total Protein Albumin Prealbumin Cholesterol LDL Cholesterol Direct HDL Cholesterol Urine WBC (Auto) Vancomycin Trough Coronavirus (PCR) Crossmatch 08/07/19 08/07/19 08/07/19 05:16 05:23 05:23 WBC 30.3 H RBC 2.69 L Hgb 7.1 L Hct 22.2 L MCV 83 L MCH 27 L MCHC RDW 19.1 H Plt Count 650 H Lymph % (Auto) [place] % (Auto) Lymph # [place] # Baso # Seg Neutrophils % Seg Neuts % (Manual) 88.0 H Lymphocytes % (Manual) 5.0 L Monocytes % (Manual) Nucleated RBC % Seg Neutrophils # Seg Neutrophils # Man 26.7 H Lymphocytes # (Manual) Monocytes # (Manual) 2.1 H Basophils # (Manual) PT INR D-Dimer ABG pH ABG pO2 ABG HCO3 ABG O2 Saturation ABG Base Excess ABG Hemoglobin Oxyhemoglobin Sodium 135 L Potassium 3.4 L Chloride 95.4 L Carbon Dioxide 32 H BUN Creatinine 0.4 L Glucose 120 H POC Glucose 120 H Lactic Acid Calcium 7.7 L Magnesium Iron TIBC Ferritin AST ALT Lactate Dehydrogenase Troponin T C-Reactive Protein Total Protein Albumin Prealbumin Cholesterol LDL Cholesterol Direct HDL Cholesterol Urine WBC (Auto) Vancomycin Trough Coronavirus (PCR) Crossmatch 08/07/19 08/07/19 08/07/19 10:24 10:24 11:10 WBC RBC Hgb Hct MCV MCH MCHC RDW Plt Count Lymph % (Auto) [place] % (Auto) Lymph # [place] # Baso # Seg Neutrophils % Seg Neuts % (Manual) Lymphocytes % (Manual) Monocytes % (Manual) Nucleated RBC % Seg Neutrophils # Seg Neutrophils # Man Lymphocytes # (Manual) Monocytes # (Manual) Basophils # (Manual) PT INR D-Dimer 1808.06 H ABG pH ABG pO2 73.3 L ABG HCO3 33.9 H ABG O2 Saturation ABG Base Excess 9.0 H ABG Hemoglobin 6.3 L Oxyhemoglobin 94.3 L Sodium Potassium Chloride Carbon Dioxide BUN Creatinine Glucose POC Glucose Lactic Acid Calcium Magnesium Iron TIBC Ferritin AST ALT Lactate Dehydrogenase Troponin T C-Reactive Protein 11.10 H Total Protein Albumin Prealbumin Cholesterol LDL Cholesterol Direct HDL Cholesterol Urine WBC (Auto) Vancomycin Trough Coronavirus (PCR) Crossmatch 08/07/19 08/08/19 08/08/19 12:01 04:41 04:41 WBC 22.1 H RBC 2.82 L Hgb 7.7 L Hct 23.6 L MCV MCH 27 L MCHC RDW 19.1 H Plt Count 722 H Lymph % (Auto) [place] % (Auto) Lymph # [place] # Baso # Seg Neutrophils % Seg Neuts % (Manual) 90.0 H Lymphocytes % (Manual) 3.0 L Monocytes % (Manual) Nucleated RBC % Seg Neutrophils # Seg Neutrophils # Man 19.9 H Lymphocytes # (Manual) 0.7 L Monocytes # (Manual) 1.3 H Basophils # (Manual) PT INR D-Dimer ABG pH ABG pO2 ABG HCO3 ABG O2 Saturation ABG Base Excess ABG Hemoglobin Oxyhemoglobin Sodium 136 L Potassium Chloride 97.8 L Carbon Dioxide BUN Creatinine 0.3 L Glucose 105 H POC Glucose 130 H Lactic Acid Calcium 7.8 L Magnesium Iron TIBC Ferritin AST ALT Lactate Dehydrogenase Troponin T C-Reactive Protein Total Protein Albumin Prealbumin Cholesterol LDL Cholesterol Direct HDL Cholesterol Urine WBC (Auto) Vancomycin Trough Coronavirus (PCR) Crossmatch 08/08/19 08/08/1908/08/20 11:46 18:35 00:12 WBC RBC Hgb Hct MCV MCH MCHC RDW Plt Count Lymph % (Auto) [place] % (Auto) Lymph # [place] # Baso # Seg Neutrophils % Seg Neuts % (Manual) Lymphocytes % (Manual) Monocytes % (Manual) Nucleated RBC % Seg Neutrophils # Seg Neutrophils # Man Lymphocytes # (Manual) Monocytes # (Manual) Basophils # (Manual) PT INR D-Dimer ABG pH ABG pO2 ABG HCO3 ABG O2 Saturation ABG Base Excess ABG Hemoglobin Oxyhemoglobin Sodium Potassium Chloride Carbon Dioxide BUN Creatinine Glucose POC Glucose 117 H 117 H 117 H Lactic Acid Calcium Magnesium Iron TIBC Ferritin AST ALT Lactate Dehydrogenase Troponin T C-Reactive Protein Total Protein Albumin Prealbumin Cholesterol LDL Cholesterol Direct HDL Cholesterol Urine WBC (Auto) Vancomycin Trough Coronavirus (PCR) Crossmatch 08/09/19 08/09/19 08/09/19 05:33 12:22 17:48 WBC RBC Hgb Hct MCV MCH MCHC RDW Plt Count Lymph % (Auto) [place] % (Auto) Lymph # [place] # Baso # Seg Neutrophils % Seg Neuts % (Manual) Lymphocytes % (Manual) Monocytes % (Manual) Nucleated RBC % Seg Neutrophils # Seg Neutrophils # Man Lymphocytes # (Manual) Monocytes # (Manual) Basophils # (Manual) PT INR D-Dimer ABG pH ABG pO2 ABG HCO3 ABG O2 Saturation ABG Base Excess ABG Hemoglobin Oxyhemoglobin Sodium Potassium Chloride Carbon Dioxide BUN Creatinine Glucose POC Glucose 119 H 133 H 123 H Lactic Acid Calcium Magnesium Iron TIBC Ferritin AST ALT Lactate Dehydrogenase Troponin T C-Reactive Protein Total Protein Albumin Prealbumin Cholesterol LDL Cholesterol Direct HDL Cholesterol Urine WBC (Auto) Vancomycin Trough Coronavirus (PCR) Crossmatch 08/09/19 08/09/19 08/10/19 17:59 18:15 00:02 WBC RBC Hgb 6.7 L Hct 20.4 L MCV MCH MCHC RDW Plt Count Lymph % (Auto) [place] % (Auto) Lymph # [place] # Baso # Seg Neutrophils % Seg Neuts % (Manual) Lymphocytes % (Manual) Monocytes % (Manual) Nucleated RBC % Seg Neutrophils # Seg Neutrophils # Man Lymphocytes # (Manual) Monocytes # (Manual) Basophils # (Manual) PT INR D-Dimer ABG pH ABG pO2 ABG HCO3 ABG O2 Saturation ABG Base Excess ABG Hemoglobin Oxyhemoglobin Sodium Potassium Chloride Carbon Dioxide BUN Creatinine Glucose POC Glucose 124 H Lactic Acid Calcium Magnesium Iron TIBC Ferritin AST ALT Lactate Dehydrogenase Troponin T C-Reactive Protein Total Protein Albumin Prealbumin Cholesterol LDL Cholesterol Direct HDL Cholesterol Urine WBC (Auto) Vancomycin Trough Coronavirus (PCR) Crossmatch See Detail 08/10/19 08/10/19 08/10/19 05:47 08:00 08:00 WBC 16.9 H RBC 2.94 L Hgb 8.2 L Hct 24.9 L MCV MCH MCHC RDW 17.0 H Plt Count 661 H Lymph % (Auto) [place] % (Auto) Lymph # [place] # Baso # Seg Neutrophils % Seg Neuts % (Manual) Lymphocytes % (Manual) Monocytes % (Manual) Nucleated RBC % Seg Neutrophils # Seg Neutrophils # Man Lymphocytes # (Manual) Monocytes # (Manual) Basophils # (Manual) PT INR D-Dimer ABG pH ABG pO2 ABG HCO3 ABG O2 Saturation ABG Base Excess ABG Hemoglobin Oxyhemoglobin Sodium Potassium Chloride Carbon Dioxide BUN Creatinine 0.3 L Glucose 116 H POC Glucose 148 H Lactic Acid Calcium 7.7 L Magnesium Iron TIBC Ferritin AST ALT Lactate Dehydrogenase Troponin T C-Reactive Protein Total Protein Albumin Prealbumin Cholesterol LDL Cholesterol Direct HDL Cholesterol Urine WBC (Auto) Vancomycin Trough Coronavirus (PCR) Crossmatch 08/10/19 08/10/19 08/10/19 12:38 18:06 23:56 WBC RBC Hgb Hct MCV MCH MCHC RDW Plt Count Lymph % (Auto) [place] % (Auto) Lymph # [place] # Baso # Seg Neutrophils % Seg Neuts % (Manual) Lymphocytes % (Manual) Monocytes % (Manual) Nucleated RBC % Seg Neutrophils # Seg Neutrophils # Man Lymphocytes # (Manual) Monocytes # (Manual) Basophils # (Manual) PT INR D-Dimer ABG pH ABG pO2 ABG HCO3 ABG O2 Saturation ABG Base Excess ABG Hemoglobin Oxyhemoglobin Sodium Potassium Chloride Carbon Dioxide BUN Creatinine Glucose POC Glucose 113 H 126 H 115 H Lactic Acid Calcium Magnesium Iron TIBC Ferritin AST ALT Lactate Dehydrogenase Troponin T C-Reactive Protein Total Protein Albumin Prealbumin Cholesterol LDL Cholesterol Direct HDL Cholesterol Urine WBC (Auto) Vancomycin Trough Coronavirus (PCR) Crossmatch 08/10/19 08/11/19 08/12/19 Unknown 18:10 03:30 WBC 14.4 H RBC 2.58 L Hgb 7.4 L Hct 22.1 L MCV MCH MCHC RDW 17.4 H Plt Count 786 H Lymph % (Auto) [place] % (Auto) Lymph # [place] # Baso # Seg Neutrophils % Seg Neuts % (Manual) Lymphocytes % (Manual) Monocytes % (Manual) Nucleated RBC % Seg Neutrophils # Seg Neutrophils # Man Lymphocytes # (Manual) Monocytes # (Manual) Basophils # (Manual) PT INR D-Dimer ABG pH ABG pO2 ABG HCO3 ABG O2 Saturation ABG Base Excess ABG Hemoglobin Oxyhemoglobin Sodium Potassium Chloride Carbon Dioxide BUN Creatinine Glucose POC Glucose 106 H Lactic Acid Calcium Magnesium Iron TIBC Ferritin AST ALT Lactate Dehydrogenase Troponin T C-Reactive Protein Total Protein Albumin Prealbumin Cholesterol LDL Cholesterol Direct HDL Cholesterol Urine WBC (Auto) Vancomycin Trough Coronavirus (PCR) Positive A Crossmatch 08/12/19 08/12/19 08/13/19 03:30 12:08 05:25 WBC RBC Hgb Hct MCV MCH MCHC RDW Plt Count Lymph % (Auto) [place] % (Auto) Lymph # [place] # Baso # Seg Neutrophils % Seg Neuts % (Manual) Lymphocytes % (Manual) Monocytes % (Manual) Nucleated RBC % Seg Neutrophils # Seg Neutrophils # Man Lymphocytes # (Manual) Monocytes # (Manual) Basophils # (Manual) PT INR D-Dimer ABG pH ABG pO2 ABG HCO3 ABG O2 Saturation ABG Base Excess ABG Hemoglobin Oxyhemoglobin Sodium Potassium Chloride Carbon Dioxide BUN 7 L Creatinine 0.3 L Glucose 117 H POC Glucose 112 H 126 H Lactic Acid Calcium 7.8 L Magnesium Iron TIBC Ferritin AST ALT Lactate Dehydrogenase Troponin T C-Reactive Protein Total Protein Albumin Prealbumin Cholesterol LDL Cholesterol Direct HDL Cholesterol Urine WBC (Auto) Vancomycin Trough Coronavirus (PCR) Crossmatch 08/13/19 08/13/19 08/13/19 11:36 17:10 19:06 WBC RBC Hgb Hct MCV MCH MCHC RDW Plt Count Lymph % (Auto) [place] % (Auto) Lymph # [place] # Baso # Seg Neutrophils % Seg Neuts % (Manual) Lymphocytes % (Manual) Monocytes % (Manual) Nucleated RBC % Seg Neutrophils # Seg Neutrophils # Man Lymphocytes # (Manual) Monocytes # (Manual) Basophils # (Manual) PT INR D-Dimer ABG pH ABG pO2 105.0 H ABG HCO3 28.5 H ABG O2 Saturation ABG Base Excess 3.5 H ABG Hemoglobin 7.8 L Oxyhemoglobin Sodium Potassium Chloride Carbon Dioxide BUN Creatinine Glucose POC Glucose 143 H 107 H Lactic Acid Calcium Magnesium Iron TIBC Ferritin AST ALT Lactate Dehydrogenase Troponin T C-Reactive Protein Total Protein Albumin Prealbumin Cholesterol LDL Cholesterol Direct HDL Cholesterol Urine WBC (Auto) Vancomycin Trough Coronavirus (PCR) Crossmatch 08/13/19 08/14/19 08/14/19 23:23 05:00 05:00 WBC 14.3 H RBC 2.76 L Hgb 7.8 L Hct 23.9 L MCV MCH MCHC RDW 18.7 H Plt Count 896 H Lymph % (Auto) [place] % (Auto) Lymph # [place] # Baso # Seg Neutrophils % Seg Neuts % (Manual) Lymphocytes % (Manual) Monocytes % (Manual) Nucleated RBC % Seg Neutrophils # Seg Neutrophils # Man Lymphocytes # (Manual) Monocytes # (Manual) Basophils # (Manual) PT INR D-Dimer ABG pH ABG pO2 ABG HCO3 ABG O2 Saturation ABG Base Excess ABG Hemoglobin Oxyhemoglobin Sodium Potassium Chloride Carbon Dioxide BUN 6 L Creatinine 0.3 L Glucose POC Glucose 125 H Lactic Acid Calcium 8.2 L Magnesium Iron TIBC Ferritin AST ALT Lactate Dehydrogenase Troponin T C-Reactive Protein Total Protein Albumin Prealbumin Cholesterol LDL Cholesterol Direct HDL Cholesterol Urine WBC (Auto) Vancomycin Trough Coronavirus (PCR) Crossmatch 08/14/19 05:07 WBC RBC Hgb Hct MCV MCH MCHC RDW Plt Count Lymph % (Auto) [place] % (Auto) Lymph # [place] # Baso # Seg Neutrophils % Seg Neuts % (Manual) Lymphocytes % (Manual) Monocytes % (Manual) Nucleated RBC % Seg Neutrophils # Seg Neutrophils # Man Lymphocytes # (Manual) Monocytes # (Manual) Basophils # (Manual) PT INR D-Dimer ABG pH ABG pO2 ABG HCO3 ABG O2 Saturation ABG Base Excess ABG Hemoglobin Oxyhemoglobin Sodium Potassium Chloride Carbon Dioxide BUN Creatinine Glucose POC Glucose 128 H Lactic Acid Calcium Magnesium Iron TIBC Ferritin AST ALT Lactate Dehydrogenase Troponin T C-Reactive Protein Total Protein Albumin Prealbumin Cholesterol LDL Cholesterol Direct HDL Cholesterol Urine WBC (Auto) Vancomycin Trough Coronavirus (PCR) Crossmatch Allied health notes reviewed: nursing
[2019-08-15] MEDS: PIPERACIL/TAZOBACTA 4.5/NS 100 4.5 GM/100 ML VIAL IV SCH ×4 (00:21→21:17)
[2019-08-15] MEDS: INSULIN LISPRO 100 UNIT/ML SUB-Q SCH ×3 (00:21→21:19)
--- NOTE | 2019-08-15 08:42 | Event Note ---
Date: 08/15/19 Pt chart reviewed. No new events noted. Pt afebrile for 24 hours with WBC trending down. Repeat COVID testing on 08/09 remains positive. Cannot proceed with trach/peg until COVID testing is negative. Recommend repeat testing in 3-4 weeks. Will s/o, please reconsult for trach/peg when repeat COVID testing is negative. Thank you, please call with questions.
[2019-08-15 08:43] LABS: Hematocrit 23.3 % (35.5-45.6); Hemoglobin 7.7 gm/dl (11.8-15.2); Mean Corpuscular HGB Conc 33 % (32-34); Mean Corpuscular Volume 87 fl (84-94); Platelet Count 885 K/mm3 (140-440); Red Blood Count 2.68 M/mm3 (3.65-5.03); Red Cell Distribution Width 19.2 % (13.2-15.2)
[2019-08-15 08:54] LABS: BUN/Creatinine Ratio 20; Blood Urea Nitrogen 6 mg/dL (9-20); Calcium 8.2 mg/dL (8.4-10.2); Hemolysis Index 16
[2019-08-15] MEDS: ASPIRIN 81 MG TAB CHEW PO SCH (10:16)
[2019-08-15] MEDS: FAMOTIDINE 20 MG TAB PO SCH ×2 (10:16→21:18)
[2019-08-15] MEDS: SCOPOLAMINE TRANSDERMAL PATCH 72 HR TD SCH (10:17)
[2019-08-15] MEDS: ENOXAPARIN 40 MG/0.4 ML INJ SUB-Q SCH (10:17)
[2019-08-15] MEDS: levETIRAcetam 500 MG/5 ML ORAL LIQD FEEDTUBE SCH ×2 (10:17→21:17)
[2019-08-15] MEDS: FOLIC ACID 1 MG TAB PO SCH (10:17)
[2019-08-15] MEDS: fentaNYL 25 MCG/HR PATCH 72HR TD SCH (11:52)
--- NOTE | 2019-08-15 14:37 | Progress Note ---
Assessment and Plan Acute hypoxemic respiratory failure on MVS Severe sepsis with Shock. Bilateral Pneumonia. PUI coronavirus-19 infection. Acute possibly on chronic encephalopathy. Oropharyngeal dysphagia. Anemia. Decubitus ulcers Diabetes type 2. Hypertension. Leukocytosis. Anemia that is microcytic. Elevated serum transaminases. [id number] metabolic acidosis. Lactic acidosis. Severe protein-calorie malnutrition ( has advised us she wants a tracheostomy and continued aggressive care) - prn CXR's and ABG's - if he shows significant tolerace of SBT's over an extended few day periods a trial of extubation may be considered - no new issues otherwise, continue care as below - follow repeat COVID-19 - surgery evaluation ongoing for tracheostomy placement (await negative COVID test) - continue care as below otherwise - continue fentanyl gtt for pain control / sedation - continue to wean supplemental oxygen for target O2 sat's > 90% acutely - continue daily SAT's and SBT assessment as tolerated - VAP bundle addressed - continue lung protective strategies - continue bronchodilators with pulmonary hygiene per RT - wean per pulmonary driven protocols otherwise - prn Levophed for target MAP > 65 mmHg - continue airborne and contact COVID-19 precautions - COVID-19 test positive - complete anti-infectives and de-escalate per ID recommendations - continue wound care per WCT - sedation prn for target RASS 0 to -1 - accuchecks with glycemic control per SSI (While critically ill target blood glucose of 140-180 mg/dL; avoid hypoglycemia) - to avoid benzodiazepine's, reduce the possibility of delirium - prn analgesia per CPOT score - Maintenance of sleep-wake cycle, avoid delirium - continue enteral nutritional support at goal rate as tolerated - G.I. & VTE prophylaxis - PT/OT/ROM exercises - continue mobility protocols for pressure ulcer prophylaxis - Monitor hemodynamics closely - continue other care per attending / other consultants - discharge planning ongoing concurrently .... Re-evaluate in am & prn CONDITION: CRITICAL PROGNOSIS: GUARDED CODE STATUS: FULL CODE The high probability of a clinically significant, sudden or life-threatening deterioration of the [respiratory & cardiovascular] system(s) required my full and direct attention, intervention and personal management. The aggregate critical care time was [32] minutes without overlap. Time includes spent on; [x] Data Review and interpretation [x] Patient assessment and monitoring of vital signs [x] Documentation [x] Medication orders and management Subjective Date of service: 08/15/19 Principal diagnosis: Bilateral pneumonia, severe sepsis with septic shock, encephalopathy Interval history: Patient is seen today for: Ac hypoxemic Resp failure on MVS; Severe sepsis with Shock; Ivan. Pneumonia; PUI coronavirus-19 infection. Seen and examined at bedside; 24hour events reviewed; nursing and respiratory care staff consulted; no adverse overnight events reported to me; resting in bed; remains on MVS; tolerating PSV trials a little better and on PSV 12/24 now; alert but remains encephalopathic / with dementia Objective Vital Signs - 12hr 08/15/19 08/15/19 08/15/19 03:00 04:00 04:24 Temperature 98.7 F Pulse Rate 84 85 110 H Pulse Rate [ From Monitor] Respiratory 19 18 Rate Blood Pressure 134/74 148/80 153/91 O2 Sat by Pulse 100 100 100 Oximetry 08/15/19 08/15/19 08/15/19 04:26 05:00 06:00 Temperature Pulse Rate 95 H 85 88 Pulse Rate [ 83 From Monitor] Respiratory 19 18 17 Rate Blood Pressure 157/85 146/80 O2 Sat by Pulse 100 100 100 Oximetry 08/15/19 08/15/19 08/15/19 07:00 07:32 08:00 Temperature 98.1 F Pulse Rate 82 88 107 H Pulse Rate [ 97 H From Monitor] Respiratory 14 17 25 H Rate Blood Pressure 159/88 146/80 151/80 O2 Sat by Pulse 100 100 100 Oximetry 08/15/19 08/15/19 08/15/19 09:00 10:00 11:00 Temperature Pulse Rate 94 H 121 H 104 H Pulse Rate [ From Monitor] Respiratory 20 27 H 20 Rate Blood Pressure 159/83 182/105 154/81 O2 Sat by Pulse 100 100 99 Oximetry 08/15/19 11:19 Temperature Pulse Rate 107 H Pulse Rate [ From Monitor] Respiratory 26 H Rate Blood Pressure 151/80 O2 Sat by Pulse 100 Oximetry Constitutional: appears uncomfortable, other (eelderly and chronically ill looking AAM, normocep[krystina;ic with mildly increased respiratory effort at rest) Eyes: non-icteric ENT: oropharynx moist, other (ETT 24 cm Pawan) Neck: supple, no lymphadenopathy, no JVD Effort: very labored Ascultation: Bilateral: diminished breath sounds, rhonchi Percussion: Bilateral: not dull Cardiovascular: regular rate and rhythm Gastrointestinal: normoactive bowel sounds, soft, non-tender, non-distended, other (+ PEG tube with mild TF leakage) Integumentary: decubitus ulcer (sacral) Extremities: no cyanosis, no edema, pink and warm, pulses normal Neurologic: pupils equal and round, unable to assess Psychiatric: other (Unable to assess re: AMS) CBC and BMP: 08/18/19 06:00 08/18/19 06:00 ABG, PT/INR, D-dimer: ABG ABG pH 7.408 pH Units (7.350-7.450) 08/13/19 17:10 ABG pCO2 46.2 mm Hg 08/13/19 17:10 ABG pO2 105.0 mm Hg (80.0-90.0) H 08/13/19 17:10 ABG O2 Saturation 97.8 % (95.0-99.0) 08/13/19 17:10 PT/INR, D-dimer PT 16.0 Sec. (12.2-14.9) H 07/03/19 22:20 INR 1.26 (0.87-1.13) H 07/03/19 22:20 D-Dimer 1808.06 ng/mlDDU (0-234) H 08/07/19 10:24 Abnormal lab findings: Abnormal Labs 07/03/19 07/03/19 07/03/19 19:57 21:10 21:13 WBC RBC Hgb Hct MCV MCH MCHC RDW Plt Count Lymph % (Auto) [place] % (Auto) Lymph # [place] # Baso # Seg Neutrophils % Seg Neuts % (Manual) Lymphocytes % (Manual) Monocytes % (Manual) Nucleated RBC % Seg Neutrophils # Seg Neutrophils # Man Lymphocytes # (Manual) Monocytes # (Manual) Basophils # (Manual) PT INR D-Dimer ABG pH 7.238 L ABG pO2 210.8 H ABG HCO3 15.4 L ABG O2 Saturation 99.2 H ABG Base Excess -11.1 L ABG Hemoglobin 8.0 L Oxyhemoglobin Sodium 124 L Potassium Chloride 92.9 L Carbon Dioxide 10 L BUN 23 H Creatinine 0.5 L Glucose 118 H POC Glucose Lactic Acid Calcium 7.0 L Magnesium Iron TIBC Ferritin AST 70 H ALT 88 H Lactate Dehydrogenase Troponin T 0.032 H C-Reactive Protein Total Protein 5.0 L Albumin 1.8 L Prealbumin Cholesterol 47 L LDL Cholesterol Direct 25 L HDL Cholesterol 20 L Urine WBC (Auto) 12.0 H Vancomycin Trough Coronavirus (PCR) Crossmatch 07/03/19 07/03/19 07/03/19 22:20 22:20 22:20 WBC 30.5 H RBC 2.96 L Hgb 7.7 L Hct 23.9 L MCV 81 L MCH 26 L MCHC RDW 18.6 H Plt Count 459 H Lymph % (Auto) [place] % (Auto) Lymph # [place] # Baso # Seg Neutrophils % Seg Neuts % (Manual) 93.0 H Lymphocytes % (Manual) 0.5 L Monocytes % (Manual) Nucleated RBC % Seg Neutrophils # Seg Neutrophils # Man 28.4 H Lymphocytes # (Manual) 0.2 L Monocytes # (Manual) Basophils # (Manual) PT 16.0 H INR 1.26 H D-Dimer ABG pH ABG pO2 ABG HCO3 ABG O2 Saturation ABG Base Excess ABG Hemoglobin Oxyhemoglobin Sodium Potassium Chloride Carbon Dioxide BUN Creatinine Glucose POC Glucose Lactic Acid 6.90 H* Calcium Magnesium Iron TIBC Ferritin AST ALT Lactate Dehydrogenase Troponin T C-Reactive Protein Total Protein Albumin Prealbumin Cholesterol LDL Cholesterol Direct HDL Cholesterol Urine WBC (Auto) Vancomycin Trough Coronavirus (PCR) Crossmatch 07/03/19 07/04/19 07/04/19 23:58 05:15 07:05 WBC 17.1 H RBC 3.22 L Hgb 8.3 L Hct 25.4 L MCV 79 L MCH 26 L MCHC RDW 18.6 H Plt Count Lymph % (Auto) [place] % (Auto) Lymph # [place] # Baso # Seg Neutrophils % Seg Neuts % (Manual) 74.0 H Lymphocytes % (Manual) 0 L Monocytes % (Manual) Nucleated RBC % Seg Neutrophils # Seg Neutrophils # Man 12.7 H Lymphocytes # (Manual) 0.0 L Monocytes # (Manual) Basophils # (Manual) PT INR D-Dimer ABG pH 7.310 L ABG pO2 73.2 L ABG HCO3 17.8 L ABG O2 Saturation 93.8 L ABG Base Excess -7.7 L ABG Hemoglobin 9.6 L Oxyhemoglobin 92.3 L Sodium Potassium Chloride Carbon Dioxide BUN Creatinine Glucose POC Glucose Lactic Acid 7.10 H* Calcium Magnesium Iron TIBC Ferritin AST ALT Lactate Dehydrogenase Troponin T C-Reactive Protein Total Protein Albumin Prealbumin Cholesterol LDL Cholesterol Direct HDL Cholesterol Urine WBC (Auto) Vancomycin Trough Coronavirus (PCR) Crossmatch 07/04/19 07/04/19 07/04/19 07:05 07:05 07:05 WBC RBC Hgb Hct MCV MCH MCHC RDW Plt Count Lymph % (Auto) [place] % (Auto) Lymph # [place] # Baso # Seg Neutrophils % Seg Neuts % (Manual) Lymphocytes % (Manual) Monocytes % (Manual) Nucleated RBC % Seg Neutrophils # Seg Neutrophils # Man Lymphocytes # (Manual) Monocytes # (Manual) Basophils # (Manual) PT INR D-Dimer ABG pH ABG pO2 ABG HCO3 ABG O2 Saturation ABG Base Excess ABG Hemoglobin Oxyhemoglobin Sodium 120 L Potassium 5.1 H Chloride 90.0 L Carbon Dioxide 14 L BUN 26 H Creatinine 0.5 L Glucose POC Glucose Lactic Acid 3.30 H* Calcium 8.0 L Magnesium Iron 9 L TIBC 97 L Ferritin AST 73 H ALT 91 H Lactate Dehydrogenase Troponin T C-Reactive Protein Total Protein 5.5 L Albumin 2.0 L Prealbumin Cholesterol LDL Cholesterol Direct HDL Cholesterol Urine WBC (Auto) Vancomycin Trough Coronavirus (PCR) Crossmatch 07/04/19 07/04/19 07/04/19 09:39 09:39 09:39 WBC RBC Hgb Hct MCV MCH MCHC RDW Plt Count Lymph % (Auto) [place] % (Auto) Lymph # [place] # Baso # Seg Neutrophils % Seg Neuts % (Manual) Lymphocytes % (Manual) Monocytes % (Manual) Nucleated RBC % Seg Neutrophils # Seg Neutrophils # Man Lymphocytes # (Manual) Monocytes # (Manual) Basophils # (Manual) PT INR D-Dimer 1419.14 H ABG pH ABG pO2 ABG HCO3 ABG O2 Saturation ABG Base Excess ABG Hemoglobin Oxyhemoglobin Sodium Potassium Chloride Carbon Dioxide BUN Creatinine Glucose POC Glucose Lactic Acid Calcium Magnesium Iron TIBC Ferritin 1719.0 H AST ALT Lactate Dehydrogenase 234 H Troponin T C-Reactive Protein 15.50 H Total Protein Albumin Prealbumin Cholesterol LDL Cholesterol Direct HDL Cholesterol Urine WBC (Auto) Vancomycin Trough Coronavirus (PCR) Crossmatch 07/04/19 07/04/19 07/04/19 10:09 18:08 18:28 WBC RBC Hgb Hct MCV MCH MCHC RDW Plt Count Lymph % (Auto) [place] % (Auto) Lymph # [place] # Baso # Seg Neutrophils % Seg Neuts % (Manual) Lymphocytes % (Manual) Monocytes % (Manual) Nucleated RBC % Seg Neutrophils # Seg Neutrophils # Man Lymphocytes # (Manual) Monocytes # (Manual) Basophils # (Manual) PT INR D-Dimer ABG pH ABG pO2 ABG HCO3 ABG O2 Saturation ABG Base Excess ABG Hemoglobin Oxyhemoglobin Sodium 117 L* Potassium 5.6 H Chloride 90.3 L Carbon Dioxide 16 L BUN 28 H Creatinine 0.5 L Glucose 58 L POC Glucose 65 L Lactic Acid Calcium 8.2 L Magnesium Iron TIBC Ferritin AST ALT Lactate Dehydrogenase Troponin T C-Reactive Protein Total Protein Albumin Prealbumin Cholesterol LDL Cholesterol Direct HDL Cholesterol Urine WBC (Auto) Vancomycin Trough Coronavirus (PCR) Positive A Crossmatch 07/04/19 07/04/19 07/04/19 23:45 Unknown Unknown WBC RBC Hgb Hct MCV MCH MCHC RDW Plt Count Lymph % (Auto) [place] % (Auto) Lymph # [place] # Baso # Seg Neutrophils % Seg Neuts % (Manual) Lymphocytes % (Manual) Monocytes % (Manual) Nucleated RBC % Seg Neutrophils # Seg Neutrophils # Man Lymphocytes # (Manual) Monocytes # (Manual) Basophils # (Manual) PT INR D-Dimer 759.77 H ABG pH ABG pO2 ABG HCO3 ABG O2 Saturation ABG Base Excess ABG Hemoglobin Oxyhemoglobin Sodium 122 L Potassium Chloride 93.0 L Carbon Dioxide 19 L BUN 27 H Creatinine 0.5 L Glucose POC Glucose Lactic Acid Calcium 8.3 L Magnesium Iron TIBC Ferritin 1301.0 H AST ALT Lactate Dehydrogenase Troponin T C-Reactive Protein Total Protein Albumin Prealbumin Cholesterol LDL Cholesterol Direct HDL Cholesterol Urine WBC (Auto) Vancomycin Trough Coronavirus (PCR) Crossmatch 07/04/19 07/05/19 07/05/19 Unknown 03:20 04:00 WBC RBC Hgb Hct MCV MCH MCHC RDW Plt Count Lymph % (Auto) [place] % (Auto) Lymph # [place] # Baso # Seg Neutrophils % Seg Neuts % (Manual) Lymphocytes % (Manual) Monocytes % (Manual) Nucleated RBC % Seg Neutrophils # Seg Neutrophils # Man Lymphocytes # (Manual) Monocytes # (Manual) Basophils # (Manual) PT INR D-Dimer ABG pH ABG pO2 60.6 L ABG HCO3 ABG O2 Saturation 93.5 L ABG Base Excess -2.4 L ABG Hemoglobin 6.9 L Oxyhemoglobin 92.0 L Sodium 125 L Potassium Chloride 92.6 L Carbon Dioxide 19 L BUN 24 H Creatinine 0.6 L Glucose POC Glucose Lactic Acid Calcium 8.2 L Magnesium 1.40 L Iron TIBC Ferritin AST ALT Lactate Dehydrogenase 242 H Troponin T C-Reactive Protein 16.70 H Total Protein Albumin Prealbumin Cholesterol LDL Cholesterol Direct HDL Cholesterol Urine WBC (Auto) Vancomycin Trough Coronavirus (PCR) Crossmatch 07/05/19 07/05/19 07/05/19 10:11 16:15 17:54 WBC 46.4 H* RBC 2.77 L Hgb 7.2 L Hct 21.9 L MCV 79 L MCH 26 L MCHC RDW 19.0 H Plt Count Lymph % (Auto) [place] % (Auto) Lymph # [place] # Baso # Seg Neutrophils % Seg Neuts % (Manual) 82.0 H Lymphocytes % (Manual) 1.0 L Monocytes % (Manual) Nucleated RBC % Seg Neutrophils # Seg Neutrophils # Man 38.0 H Lymphocytes # (Manual) 0.5 L Monocytes # (Manual) Basophils # (Manual) PT INR D-Dimer ABG pH ABG pO2 ABG HCO3 ABG O2 Saturation ABG Base Excess ABG Hemoglobin Oxyhemoglobin Sodium Potassium Chloride Carbon Dioxide BUN Creatinine Glucose POC Glucose 69 L Lactic Acid Calcium Magnesium Iron TIBC Ferritin AST ALT Lactate Dehydrogenase Troponin T C-Reactive Protein Total Protein Albumin Prealbumin Cholesterol LDL Cholesterol Direct HDL Cholesterol Urine WBC (Auto) Vancomycin Trough 23.2 H Coronavirus (PCR) Crossmatch 07/05/19 07/06/19 07/06/19 19:58 00:27 00:27 WBC RBC Hgb Hct MCV MCH MCHC RDW Plt Count Lymph % (Auto) [place] % (Auto) Lymph # [place] # Baso # Seg Neutrophils % Seg Neuts % (Manual) Lymphocytes % (Manual) Monocytes % (Manual) Nucleated RBC % Seg Neutrophils # Seg Neutrophils # Man Lymphocytes # (Manual) Monocytes # (Manual) Basophils # (Manual) PT INR D-Dimer 1333.22 H ABG pH ABG pO2 ABG HCO3 ABG O2 Saturation ABG Base Excess ABG Hemoglobin Oxyhemoglobin Sodium 127 L Potassium Chloride Carbon Dioxide BUN Creatinine Glucose POC Glucose Lactic Acid Calcium Magnesium Iron TIBC Ferritin 977.1 H AST ALT Lactate Dehydrogenase Troponin T C-Reactive Protein Total Protein Albumin Prealbumin Cholesterol LDL Cholesterol Direct HDL Cholesterol Urine WBC (Auto) Vancomycin Trough Coronavirus (PCR) Crossmatch 07/06/19 07/06/19 07/06/19 00:27 02:00 02:56 WBC RBC Hgb Hct MCV MCH MCHC RDW Plt Count Lymph % (Auto) [place] % (Auto) Lymph # [place] # Baso # Seg Neutrophils % Seg Neuts % (Manual) Lymphocytes % (Manual) Monocytes % (Manual) Nucleated RBC % Seg Neutrophils # Seg Neutrophils # Man Lymphocytes # (Manual) Monocytes # (Manual) Basophils # (Manual) PT INR D-Dimer ABG pH ABG pO2 70.3 L ABG HCO3 ABG O2 Saturation 94.8 L ABG Base Excess ABG Hemoglobin 8.0 L Oxyhemoglobin 93.2 L Sodium Potassium Chloride Carbon Dioxide BUN Creatinine Glucose POC Glucose 117 H Lactic Acid Calcium Magnesium Iron TIBC Ferritin AST ALT Lactate Dehydrogenase 236 H Troponin T C-Reactive Protein 22.90 H Total Protein Albumin Prealbumin Cholesterol LDL Cholesterol Direct HDL Cholesterol Urine WBC (Auto) Vancomycin Trough Coronavirus (PCR) Crossmatch 07/06/19 07/06/19 07/06/19 03:49 03:49 07:40 WBC 38.8 H RBC 2.51 L Hgb 6.7 L Hct 19.9 L* MCV 79 L MCH 27 L MCHC RDW 19.2 H Plt Count Lymph % (Auto) [place] % (Auto) Lymph # [place] # Baso # Seg Neutrophils % Seg Neuts % (Manual) 90.5 H Lymphocytes % (Manual) 1.0 L Monocytes % (Manual) Nucleated RBC % Seg Neutrophils # Seg Neutrophils # Man 35.1 H Lymphocytes # (Manual) 0.4 L Monocytes # (Manual) Basophils # (Manual) PT INR D-Dimer ABG pH ABG pO2 ABG HCO3 ABG O2 Saturation ABG Base Excess ABG Hemoglobin Oxyhemoglobin Sodium 131 L Potassium Chloride 96.9 L Carbon Dioxide 18 L BUN 23 H Creatinine 0.5 L Glucose POC Glucose Lactic Acid Calcium 8.0 L Magnesium Iron TIBC Ferritin AST ALT Lactate Dehydrogenase Troponin T C-Reactive Protein Total Protein Albumin Prealbumin Cholesterol LDL Cholesterol Direct HDL Cholesterol Urine WBC (Auto) Vancomycin Trough Coronavirus (PCR) Crossmatch See Detail 07/06/19 07/06/19 07/06/19 12:38 14:39 20:00 WBC RBC Hgb Hct MCV MCH MCHC RDW Plt Count Lymph % (Auto) [place] % (Auto) Lymph # [place] # Baso # Seg Neutrophils % Seg Neuts % (Manual) Lymphocytes % (Manual) Monocytes % (Manual) Nucleated RBC % Seg Neutrophils # Seg Neutrophils # Man Lymphocytes # (Manual) Monocytes # (Manual) Basophils # (Manual) PT INR D-Dimer ABG pH ABG pO2 ABG HCO3 ABG O2 Saturation ABG Base Excess ABG Hemoglobin Oxyhemoglobin Sodium Potassium Chloride Carbon Dioxide BUN Creatinine Glucose POC Glucose 112 H 111 H 140 H Lactic Acid Calcium Magnesium Iron TIBC Ferritin AST ALT Lactate Dehydrogenase Troponin T C-Reactive Protein Total Protein Albumin Prealbumin Cholesterol LDL Cholesterol Direct HDL Cholesterol Urine WBC (Auto) Vancomycin Trough Coronavirus (PCR) Crossmatch 07/06/19 07/06/19 07/07/19 22:43 22:56 02:20 WBC RBC Hgb 7.9 L Hct 23.1 L MCV MCH MCHC RDW Plt Count Lymph % (Auto) [place] % (Auto) Lymph # [place] # Baso # Seg Neutrophils % Seg Neuts % (Manual) Lymphocytes % (Manual) Monocytes % (Manual) Nucleated RBC % Seg Neutrophils # Seg Neutrophils # Man Lymphocytes # (Manual) Monocytes # (Manual) Basophils # (Manual) PT INR D-Dimer ABG pH ABG pO2 ABG HCO3 ABG O2 Saturation ABG Base Excess ABG Hemoglobin Oxyhemoglobin Sodium Potassium Chloride Carbon Dioxide BUN Creatinine Glucose POC Glucose 122 H 149 H Lactic Acid Calcium Magnesium Iron TIBC Ferritin AST ALT Lactate Dehydrogenase Troponin T C-Reactive Protein Total Protein Albumin Prealbumin Cholesterol LDL Cholesterol Direct HDL Cholesterol Urine WBC (Auto) Vancomycin Trough Coronavirus (PCR) Crossmatch 07/07/19 07/07/19 07/07/19 04:35 05:27 05:34 WBC 23.1 H RBC 3.00 L Hgb 8.1 L Hct 24.2 L MCV 81 L MCH 27 L MCHC RDW 20.6 H Plt Count Lymph % (Auto) [place] % (Auto) Lymph # [place] # Baso # Seg Neutrophils % Seg Neuts % (Manual) 90.0 H Lymphocytes % (Manual) 2.0 L Monocytes % (Manual) Nucleated RBC % Seg Neutrophils # Seg Neutrophils # Man 20.8 H Lymphocytes # (Manual) 0.5 L Monocytes # (Manual) Basophils # (Manual) PT INR D-Dimer ABG pH ABG pO2 65.8 L ABG HCO3 ABG O2 Saturation 92.2 L ABG Base Excess ABG Hemoglobin 8.3 L Oxyhemoglobin 90.6 L Sodium Potassium Chloride Carbon Dioxide BUN Creatinine Glucose POC Glucose 132 H Lactic Acid Calcium Magnesium Iron TIBC Ferritin AST ALT Lactate Dehydrogenase Troponin T C-Reactive Protein Total Protein Albumin Prealbumin Cholesterol LDL Cholesterol Direct HDL Cholesterol Urine WBC (Auto) Vancomycin Trough Coronavirus (PCR) Crossmatch 07/07/19 07/07/19 07/07/19 05:34 11:50 15:58 WBC RBC Hgb 8.1 L Hct 24.2 L MCV MCH MCHC RDW Plt Count Lymph % (Auto) [place] % (Auto) Lymph # [place] # Baso # Seg Neutrophils % Seg Neuts % (Manual) Lymphocytes % (Manual) Monocytes % (Manual) Nucleated RBC % Seg Neutrophils # Seg Neutrophils # Man Lymphocytes # (Manual) Monocytes # (Manual) Basophils # (Manual) PT INR D-Dimer ABG pH ABG pO2 ABG HCO3 ABG O2 Saturation ABG Base Excess ABG Hemoglobin Oxyhemoglobin Sodium 135 L Potassium 3.3 L Chloride Carbon Dioxide 20 L BUN 27 H Creatinine 0.6 L Glucose 121 H POC Glucose 123 H Lactic Acid Calcium 8.0 L Magnesium Iron TIBC Ferritin AST ALT Lactate Dehydrogenase Troponin T C-Reactive Protein Total Protein Albumin Prealbumin Cholesterol LDL Cholesterol Direct HDL Cholesterol Urine WBC (Auto) Vancomycin Trough Coronavirus (PCR) Crossmatch 07/07/19 07/07/19 07/07/19 17:42 22:00 23:53 WBC RBC Hgb 8.0 L Hct 23.4 L MCV MCH MCHC RDW Plt Count Lymph % (Auto) [place] % (Auto) Lymph # [place] # Baso # Seg Neutrophils % Seg Neuts % (Manual) Lymphocytes % (Manual) Monocytes % (Manual) Nucleated RBC % Seg Neutrophils # Seg Neutrophils # Man Lymphocytes # (Manual) Monocytes # (Manual) Basophils # (Manual) PT INR D-Dimer ABG pH ABG pO2 ABG HCO3 ABG O2 Saturation ABG Base Excess ABG Hemoglobin Oxyhemoglobin Sodium Potassium Chloride Carbon Dioxide BUN Creatinine Glucose POC Glucose 107 H 117 H Lactic Acid Calcium Magnesium Iron TIBC Ferritin AST ALT Lactate Dehydrogenase Troponin T C-Reactive Protein Total Protein Albumin Prealbumin Cholesterol LDL Cholesterol Direct HDL Cholesterol Urine WBC (Auto) Vancomycin Trough Coronavirus (PCR) Crossmatch 07/08/19 07/08/19 07/08/19 00:45 00:45 00:45 WBC RBC Hgb Hct MCV MCH MCHC RDW Plt Count Lymph % (Auto) [place] % (Auto) Lymph # [place] # Baso # Seg Neutrophils % Seg Neuts % (Manual) Lymphocytes % (Manual) Monocytes % (Manual) Nucleated RBC % Seg Neutrophils # Seg Neutrophils # Man Lymphocytes # (Manual) Monocytes # (Manual) Basophils # (Manual) PT INR D-Dimer 1142.18 H ABG pH ABG pO2 ABG HCO3 ABG O2 Saturation ABG Base Excess ABG Hemoglobin Oxyhemoglobin Sodium Potassium Chloride Carbon Dioxide BUN Creatinine Glucose POC Glucose Lactic Acid Calcium Magnesium Iron TIBC Ferritin 839.0 H AST ALT Lactate Dehydrogenase 253 H Troponin T C-Reactive Protein 18.90 H Total Protein Albumin Prealbumin Cholesterol LDL Cholesterol Direct HDL Cholesterol Urine WBC (Auto) Vancomycin Trough Coronavirus (PCR) Crossmatch 07/08/19 07/08/19 07/08/19 04:30 05:11 12:02 WBC RBC Hgb Hct MCV MCH MCHC RDW Plt Count Lymph % (Auto) [place] % (Auto) Lymph # [place] # Baso # Seg Neutrophils % Seg Neuts % (Manual) Lymphocytes % (Manual) Monocytes % (Manual) Nucleated RBC % Seg Neutrophils # Seg Neutrophils # Man Lymphocytes # (Manual) Monocytes # (Manual) Basophils # (Manual) PT INR D-Dimer ABG pH ABG pO2 66.0 L ABG HCO3 ABG O2 Saturation 92.3 L ABG Base Excess ABG Hemoglobin 7.7 L Oxyhemoglobin 90.7 L Sodium Potassium Chloride Carbon Dioxide BUN Creatinine Glucose POC Glucose 108 H 153 H Lactic Acid Calcium Magnesium Iron TIBC Ferritin AST ALT Lactate Dehydrogenase Troponin T C-Reactive Protein Total Protein Albumin Prealbumin Cholesterol LDL Cholesterol Direct HDL Cholesterol Urine WBC (Auto) Vancomycin Trough Coronavirus (PCR) Crossmatch 07/08/19 07/08/19 07/08/19 16:15 18:22 23:35 WBC RBC Hgb Hct MCV MCH MCHC RDW Plt Count Lymph % (Auto) [place] % (Auto) Lymph # [place] # Baso # Seg Neutrophils % Seg Neuts % (Manual) Lymphocytes % (Manual) Monocytes % (Manual) Nucleated RBC % Seg Neutrophils # Seg Neutrophils # Man Lymphocytes # (Manual) Monocytes # (Manual) Basophils # (Manual) PT INR D-Dimer ABG pH ABG pO2 ABG HCO3 ABG O2 Saturation ABG Base Excess ABG Hemoglobin Oxyhemoglobin Sodium 134 L Potassium 3.3 L Chloride Carbon Dioxide 21 L BUN 27 H Creatinine 0.6 L Glucose 146 H POC Glucose 134 H 133 H Lactic Acid Calcium Magnesium Iron TIBC Ferritin AST ALT Lactate Dehydrogenase Troponin T C-Reactive Protein Total Protein Albumin Prealbumin Cholesterol LDL Cholesterol Direct HDL Cholesterol Urine WBC (Auto) Vancomycin Trough Coronavirus (PCR) Crossmatch 07/09/19 07/09/19 07/09/19 04:30 04:30 05:00 WBC 18.9 H RBC 2.77 L Hgb 7.4 L Hct 22.8 L MCV 82 L MCH 27 L MCHC RDW 20.9 H Plt Count 130 L Lymph % (Auto) [place] % (Auto) Lymph # [place] # Baso # Seg Neutrophils % Seg Neuts % (Manual) 84.0 H Lymphocytes % (Manual) 0 L Monocytes % (Manual) Nucleated RBC % Seg Neutrophils # Seg Neutrophils # Man 15.9 H Lymphocytes # (Manual) 0.0 L Monocytes # (Manual) Basophils # (Manual) PT INR D-Dimer ABG pH ABG pO2 ABG HCO3 ABG O2 Saturation ABG Base Excess ABG Hemoglobin Oxyhemoglobin Sodium Potassium 3.1 L Chloride Carbon Dioxide BUN 26 H Creatinine 0.5 L Glucose 125 H POC Glucose 155 H Lactic Acid Calcium Magnesium Iron TIBC Ferritin AST ALT Lactate Dehydrogenase Troponin T C-Reactive Protein Total Protein Albumin Prealbumin Cholesterol LDL Cholesterol Direct HDL Cholesterol Urine WBC (Auto) Vancomycin Trough Coronavirus (PCR) Crossmatch 07/09/19 07/09/19 07/09/19 05:55 12:22 17:50 WBC RBC Hgb Hct MCV MCH MCHC RDW Plt Count Lymph % (Auto) [place] % (Auto) Lymph # [place] # Baso # Seg Neutrophils % Seg Neuts % (Manual) Lymphocytes % (Manual) Monocytes % (Manual) Nucleated RBC % Seg Neutrophils # Seg Neutrophils # Man Lymphocytes # (Manual) Monocytes # (Manual) Basophils # (Manual) PT INR D-Dimer ABG pH ABG pO2 62.8 L ABG HCO3 ABG O2 Saturation ABG Base Excess ABG Hemoglobin 6.1 L Oxyhemoglobin 93.9 L Sodium Potassium Chloride Carbon Dioxide BUN Creatinine Glucose POC Glucose 115 H 133 H Lactic Acid Calcium Magnesium Iron TIBC Ferritin AST ALT Lactate Dehydrogenase Troponin T C-Reactive Protein Total Protein Albumin Prealbumin Cholesterol LDL Cholesterol Direct HDL Cholesterol Urine WBC (Auto) Vancomycin Trough Coronavirus (PCR) Crossmatch 07/10/19 07/10/19 07/10/19 00:38 04:00 04:00 WBC RBC Hgb Hct MCV MCH MCHC RDW Plt Count Lymph % (Auto) [place] % (Auto) Lymph # [place] # Baso # Seg Neutrophils % Seg Neuts % (Manual) Lymphocytes % (Manual) Monocytes % (Manual) Nucleated RBC % Seg Neutrophils # Seg Neutrophils # Man Lymphocytes # (Manual) Monocytes # (Manual) Basophils # (Manual) PT INR D-Dimer ABG pH ABG pO2 ABG HCO3 ABG O2 Saturation ABG Base Excess ABG Hemoglobin Oxyhemoglobin Sodium Potassium Chloride 107.9 H Carbon Dioxide BUN 26 H Creatinine 0.4 L Glucose 137 H POC Glucose 122 H Lactic Acid Calcium Magnesium 1.50 L Iron TIBC Ferritin AST ALT Lactate Dehydrogenase 277 H Troponin T C-Reactive Protein 15.10 H Total Protein Albumin Prealbumin Cholesterol LDL Cholesterol Direct HDL Cholesterol Urine WBC (Auto) Vancomycin Trough Coronavirus (PCR) Crossmatch 07/10/19 07/10/19 07/10/19 04:07 05:21 17:25 WBC RBC Hgb Hct MCV MCH MCHC RDW Plt Count Lymph % (Auto) [place] % (Auto) Lymph # [place] # Baso # Seg Neutrophils % Seg Neuts % (Manual) Lymphocytes % (Manual) Monocytes % (Manual) Nucleated RBC % Seg Neutrophils # Seg Neutrophils # Man Lymphocytes # (Manual) Monocytes # (Manual) Basophils # (Manual) PT INR D-Dimer ABG pH ABG pO2 65.6 L ABG HCO3 26.3 H ABG O2 Saturation ABG Base Excess ABG Hemoglobin 6.7 L Oxyhemoglobin Sodium Potassium Chloride Carbon Dioxide BUN Creatinine Glucose POC Glucose 144 H 113 H Lactic Acid Calcium Magnesium Iron TIBC Ferritin AST ALT Lactate Dehydrogenase Troponin T C-Reactive Protein Total Protein Albumin Prealbumin Cholesterol LDL Cholesterol Direct HDL Cholesterol Urine WBC (Auto) Vancomycin Trough Coronavirus (PCR) Crossmatch 07/11/19 07/11/19 07/11/19 00:07 05:14 05:25 WBC RBC Hgb Hct MCV MCH MCHC RDW Plt Count Lymph % (Auto) [place] % (Auto) Lymph # [place] # Baso # Seg Neutrophils % Seg Neuts % (Manual) Lymphocytes % (Manual) Monocytes % (Manual) Nucleated RBC % Seg Neutrophils # Seg Neutrophils # Man Lymphocytes # (Manual) Monocytes # (Manual) Basophils # (Manual) PT INR D-Dimer ABG pH ABG pO2 ABG HCO3 ABG O2 Saturation ABG Base Excess ABG Hemoglobin 5.8 L Oxyhemoglobin Sodium Potassium Chloride 108.0 H Carbon Dioxide BUN 26 H Creatinine 0.4 L Glucose 110 H POC Glucose 121 H Lactic Acid Calcium Magnesium Iron TIBC Ferritin AST ALT Lactate Dehydrogenase Troponin T C-Reactive Protein Total Protein Albumin Prealbumin Cholesterol LDL Cholesterol Direct HDL Cholesterol Urine WBC (Auto) Vancomycin Trough Coronavirus (PCR) Crossmatch 07/11/19 07/11/19 07/11/19 12:27 18:00 23:42 WBC RBC Hgb Hct MCV MCH MCHC RDW Plt Count Lymph % (Auto) [place] % (Auto) Lymph # [place] # Baso # Seg Neutrophils % Seg Neuts % (Manual) Lymphocytes % (Manual) Monocytes % (Manual) Nucleated RBC % Seg Neutrophils # Seg Neutrophils # Man Lymphocytes # (Manual) Monocytes # (Manual) Basophils # (Manual) PT INR D-Dimer ABG pH ABG pO2 ABG HCO3 ABG O2 Saturation ABG Base Excess ABG Hemoglobin Oxyhemoglobin Sodium Potassium Chloride Carbon Dioxide BUN Creatinine Glucose POC Glucose 158 H 141 H 142 H Lactic Acid Calcium Magnesium Iron TIBC Ferritin AST ALT Lactate Dehydrogenase Troponin T C-Reactive Protein Total Protein Albumin Prealbumin Cholesterol LDL Cholesterol Direct HDL Cholesterol Urine WBC (Auto) Vancomycin Trough Coronavirus (PCR) Crossmatch 07/12/19 07/12/19 07/12/19 04:46 04:46 05:23 WBC 23.6 H RBC 2.51 L Hgb 6.7 L Hct 20.8 L MCV 83 L MCH 27 L MCHC RDW 20.3 H Plt Count Lymph % (Auto) [place] % (Auto) Lymph # [place] # Baso # Seg Neutrophils % Seg Neuts % (Manual) 94.0 H Lymphocytes % (Manual) 4.0 L Monocytes % (Manual) Nucleated RBC % Seg Neutrophils # Seg Neutrophils # Man 22.2 H Lymphocytes # (Manual) 0.9 L Monocytes # (Manual) Basophils # (Manual) PT INR D-Dimer ABG pH ABG pO2 ABG HCO3 ABG O2 Saturation ABG Base Excess ABG Hemoglobin Oxyhemoglobin Sodium Potassium Chloride 107.1 H Carbon Dioxide BUN 25 H Creatinine 0.4 L Glucose 122 H POC Glucose 118 H Lactic Acid Calcium Magnesium Iron TIBC Ferritin AST ALT Lactate Dehydrogenase Troponin T C-Reactive Protein Total Protein Albumin Prealbumin Cholesterol LDL Cholesterol Direct HDL Cholesterol Urine WBC (Auto) Vancomycin Trough Coronavirus (PCR) Crossmatch 07/12/19 07/12/19 07/12/19 08:49 11:36 18:15 WBC RBC Hgb Hct MCV MCH MCHC RDW Plt Count Lymph % (Auto) [place] % (Auto) Lymph # [place] # Baso # Seg Neutrophils % Seg Neuts % (Manual) Lymphocytes % (Manual) Monocytes % (Manual) Nucleated RBC % Seg Neutrophils # Seg Neutrophils # Man Lymphocytes # (Manual) Monocytes # (Manual) Basophils # (Manual) PT INR D-Dimer ABG pH ABG pO2 ABG HCO3 ABG O2 Saturation ABG Base Excess ABG Hemoglobin Oxyhemoglobin Sodium Potassium Chloride Carbon Dioxide BUN Creatinine Glucose POC Glucose 124 H 110 H Lactic Acid Calcium Magnesium Iron TIBC Ferritin AST ALT Lactate Dehydrogenase Troponin T C-Reactive Protein Total Protein Albumin Prealbumin Cholesterol LDL Cholesterol Direct HDL Cholesterol Urine WBC (Auto) Vancomycin Trough Coronavirus (PCR) Crossmatch See Detail 07/12/19 07/13/19 07/13/19 23:16 05:26 06:50 WBC 23.9 H RBC 2.58 L Hgb 6.9 L Hct 21.5 L MCV 83 L MCH 27 L MCHC RDW 19.0 H Plt Count Lymph % (Auto) [place] % (Auto) Lymph # [place] # Baso # Seg Neutrophils % Seg Neuts % (Manual) 96.0 H Lymphocytes % (Manual) 3.0 L Monocytes % (Manual) Nucleated RBC % Seg Neutrophils # Seg Neutrophils # Man 22.9 H Lymphocytes # (Manual) 0.7 L Monocytes # (Manual) Basophils # (Manual) PT INR D-Dimer ABG pH ABG pO2 ABG HCO3 ABG O2 Saturation ABG Base Excess ABG Hemoglobin Oxyhemoglobin Sodium Potassium Chloride Carbon Dioxide BUN Creatinine Glucose POC Glucose 108 H 126 H Lactic Acid Calcium Magnesium Iron TIBC Ferritin AST ALT Lactate Dehydrogenase Troponin T C-Reactive Protein Total Protein Albumin Prealbumin Cholesterol LDL Cholesterol Direct HDL Cholesterol Urine WBC (Auto) Vancomycin Trough Coronavirus (PCR) Crossmatch 07/13/19 07/13/19 07/13/19 06:50 12:38 18:05 WBC RBC Hgb Hct MCV MCH MCHC RDW Plt Count Lymph % (Auto) [place] % (Auto) Lymph # [place] # Baso # Seg Neutrophils % Seg Neuts % (Manual) Lymphocytes % (Manual) Monocytes % (Manual) Nucleated RBC % Seg Neutrophils # Seg Neutrophils # Man Lymphocytes # (Manual) Monocytes # (Manual) Basophils # (Manual) PT INR D-Dimer ABG pH ABG pO2 ABG HCO3 ABG O2 Saturation ABG Base Excess ABG Hemoglobin Oxyhemoglobin Sodium Potassium Chloride Carbon Dioxide BUN 33 H Creatinine 0.5 L Glucose 136 H POC Glucose 164 H 145 H Lactic Acid Calcium Magnesium Iron TIBC Ferritin AST ALT Lactate Dehydrogenase Troponin T C-Reactive Protein Total Protein Albumin Prealbumin Cholesterol LDL Cholesterol Direct HDL Cholesterol Urine WBC (Auto) Vancomycin Trough Coronavirus (PCR) Crossmatch 07/13/19 07/14/19 07/14/19 18:30 00:21 04:40 WBC 22.9 H RBC 2.45 L Hgb 6.6 L Hct 21.1 L MCV MCH 27 L MCHC 31 L RDW 19.2 H Plt Count Lymph % (Auto) [place] % (Auto) Lymph # [place] # Baso # Seg Neutrophils % Seg Neuts % (Manual) 91.0 H Lymphocytes % (Manual) 7.0 L Monocytes % (Manual) Nucleated RBC % Seg Neutrophils # Seg Neutrophils # Man 20.8 H Lymphocytes # (Manual) Monocytes # (Manual) Basophils # (Manual) PT INR D-Dimer ABG pH ABG pO2 58.1 L ABG HCO3 ABG O2 Saturation 88.7 L ABG Base Excess ABG Hemoglobin 7.8 L Oxyhemoglobin 86.8 L Sodium Potassium Chloride Carbon Dioxide BUN Creatinine Glucose POC Glucose 118 H Lactic Acid Calcium Magnesium Iron TIBC Ferritin AST ALT Lactate Dehydrogenase Troponin T C-Reactive Protein Total Protein Albumin Prealbumin Cholesterol LDL Cholesterol Direct HDL Cholesterol Urine WBC (Auto) Vancomycin Trough Coronavirus (PCR) Crossmatch 07/14/19 07/14/19 07/14/19 04:40 05:38 05:45 WBC RBC Hgb Hct MCV MCH MCHC RDW Plt Count Lymph % (Auto) [place] % (Auto) Lymph # [place] # Baso # Seg Neutrophils % Seg Neuts % (Manual) Lymphocytes % (Manual) Monocytes % (Manual) Nucleated RBC % Seg Neutrophils # Seg Neutrophils # Man Lymphocytes # (Manual) Monocytes # (Manual) Basophils # (Manual) PT INR D-Dimer ABG pH 7.230 L ABG pO2 72.1 L ABG HCO3 ABG O2 Saturation 89.3 L ABG Base Excess -2.7 L ABG Hemoglobin 6.7 L Oxyhemoglobin 87.7 L Sodium Potassium Chloride 107.4 H Carbon Dioxide BUN 45 H Creatinine Glucose 101 H POC Glucose 154 H Lactic Acid Calcium Magnesium Iron TIBC Ferritin AST ALT Lactate Dehydrogenase Troponin T C-Reactive Protein Total Protein Albumin Prealbumin Cholesterol LDL Cholesterol Direct HDL Cholesterol Urine WBC (Auto) Vancomycin Trough Coronavirus (PCR) Crossmatch 07/14/19 07/14/19 07/14/19 12:25 18:20 19:01 WBC 22.4 H RBC 2.70 L Hgb 7.5 L Hct 23.3 L MCV MCH MCHC RDW 19.5 H Plt Count Lymph % (Auto) [place] % (Auto) Lymph # [place] # Baso # Seg Neutrophils % Seg Neuts % (Manual) Lymphocytes % (Manual) Monocytes % (Manual) Nucleated RBC % Seg Neutrophils # Seg Neutrophils # Man Lymphocytes # (Manual) Monocytes # (Manual) Basophils # (Manual) PT INR D-Dimer ABG pH ABG pO2 ABG HCO3 ABG O2 Saturation ABG Base Excess ABG Hemoglobin Oxyhemoglobin Sodium Potassium Chloride Carbon Dioxide BUN Creatinine Glucose POC Glucose 136 H 131 H Lactic Acid Calcium Magnesium Iron TIBC Ferritin AST ALT Lactate Dehydrogenase Troponin T C-Reactive Protein Total Protein Albumin Prealbumin Cholesterol LDL Cholesterol Direct HDL Cholesterol Urine WBC (Auto) Vancomycin Trough Coronavirus (PCR) Crossmatch 07/15/19 07/15/19 07/15/19 00:17 04:35 05:18 WBC 20.6 H RBC 2.41 L Hgb 6.8 L Hct 20.7 L MCV MCH MCHC RDW 20.2 H Plt Count Lymph % (Auto) [place] % (Auto) Lymph # [place] # Baso # Seg Neutrophils % Seg Neuts % (Manual) 92.0 H Lymphocytes % (Manual) 5.0 L Monocytes % (Manual) Nucleated RBC % Seg Neutrophils # Seg Neutrophils # Man 19.0 H Lymphocytes # (Manual) 1.0 L Monocytes # (Manual) Basophils # (Manual) PT INR D-Dimer ABG pH 7.342 L ABG pO2 ABG HCO3 ABG O2 Saturation ABG Base Excess -3.1 L ABG Hemoglobin 7.2 L Oxyhemoglobin 94.9 L Sodium Potassium Chloride Carbon Dioxide BUN Creatinine Glucose POC Glucose 116 H Lactic Acid Calcium Magnesium Iron TIBC Ferritin AST ALT Lactate Dehydrogenase Troponin T C-Reactive Protein Total Protein Albumin Prealbumin Cholesterol LDL Cholesterol Direct HDL Cholesterol Urine WBC (Auto) Vancomycin Trough Coronavirus (PCR) Crossmatch 07/15/19 07/15/19 07/15/19 05:18 05:57 11:28 WBC RBC Hgb Hct MCV MCH MCHC RDW Plt Count Lymph % (Auto) [place] % (Auto) Lymph # [place] # Baso # Seg Neutrophils % Seg Neuts % (Manual) Lymphocytes % (Manual) Monocytes % (Manual) Nucleated RBC % Seg Neutrophils # Seg Neutrophils # Man Lymphocytes # (Manual) Monocytes # (Manual) Basophils # (Manual) PT INR D-Dimer ABG pH ABG pO2 ABG HCO3 ABG O2 Saturation ABG Base Excess ABG Hemoglobin Oxyhemoglobin Sodium Potassium Chloride Carbon Dioxide 20 L BUN 59 H Creatinine Glucose 140 H POC Glucose 139 H 117 H Lactic Acid Calcium Magnesium Iron TIBC Ferritin AST ALT Lactate Dehydrogenase Troponin T C-Reactive Protein Total Protein Albumin Prealbumin Cholesterol LDL Cholesterol Direct HDL Cholesterol Urine WBC (Auto) Vancomycin Trough Coronavirus (PCR) Crossmatch 07/15/19 07/16/19 07/16/19 18:13 00:06 03:43 WBC RBC Hgb Hct MCV MCH MCHC RDW Plt Count Lymph % (Auto) [place] % (Auto) Lymph # [place] # Baso # Seg Neutrophils % Seg Neuts % (Manual) Lymphocytes % (Manual) Monocytes % (Manual) Nucleated RBC % Seg Neutrophils # Seg Neutrophils # Man Lymphocytes # (Manual) Monocytes # (Manual) Basophils # (Manual) PT INR D-Dimer ABG pH 7.344 L ABG pO2 68.6 L ABG HCO3 ABG O2 Saturation ABG Base Excess -3.5 L ABG Hemoglobin 6.1 L Oxyhemoglobin 93.3 L Sodium Potassium Chloride Carbon Dioxide BUN Creatinine Glucose POC Glucose 114 H 119 H Lactic Acid Calcium Magnesium Iron TIBC Ferritin AST ALT Lactate Dehydrogenase Troponin T C-Reactive Protein Total Protein Albumin Prealbumin Cholesterol LDL Cholesterol Direct HDL Cholesterol Urine WBC (Auto) Vancomycin Trough Coronavirus (PCR) Crossmatch 07/16/19 07/16/19 07/16/19 04:41 04:41 12:09 WBC 19.6 H RBC 2.81 L Hgb 7.7 L Hct 24.0 L MCV MCH 27 L MCHC RDW 19.4 H Plt Count 514 H Lymph % (Auto) 6.7 L [place] % (Auto) Lymph # [place] # 1.0 H Baso # Seg Neutrophils % 87.0 H Seg Neuts % (Manual) Lymphocytes % (Manual) Monocytes % (Manual) Nucleated RBC % Seg Neutrophils # 17.0 H Seg Neutrophils # Man Lymphocytes # (Manual) Monocytes # (Manual) Basophils # (Manual) PT INR D-Dimer ABG pH ABG pO2 ABG HCO3 ABG O2 Saturation ABG Base Excess ABG Hemoglobin Oxyhemoglobin Sodium Potassium 5.9 H Chloride Carbon Dioxide 21 L BUN 73 H Creatinine 2.0 H Glucose POC Glucose 141 H Lactic Acid Calcium Magnesium Iron TIBC Ferritin AST ALT Lactate Dehydrogenase Troponin T C-Reactive Protein Total Protein Albumin Prealbumin Cholesterol LDL Cholesterol Direct HDL Cholesterol Urine WBC (Auto) Vancomycin Trough Coronavirus (PCR) Crossmatch 07/16/19 07/16/19 07/17/19 16:19 17:45 00:16 WBC RBC Hgb Hct MCV MCH MCHC RDW Plt Count Lymph % (Auto) [place] % (Auto) Lymph # [place] # Baso # Seg Neutrophils % Seg Neuts % (Manual) Lymphocytes % (Manual) Monocytes % (Manual) Nucleated RBC % Seg Neutrophils # Seg Neutrophils # Man Lymphocytes # (Manual) Monocytes # (Manual) Basophils # (Manual) PT INR D-Dimer ABG pH ABG pO2 ABG HCO3 ABG O2 Saturation ABG Base Excess ABG Hemoglobin Oxyhemoglobin Sodium Potassium 5.1 H Chloride Carbon Dioxide 20 L BUN 72 H Creatinine 1.7 H Glucose 128 H POC Glucose 181 H 164 H Lactic Acid Calcium Magnesium Iron TIBC Ferritin AST ALT Lactate Dehydrogenase Troponin T C-Reactive Protein Total Protein Albumin Prealbumin Cholesterol LDL Cholesterol Direct HDL Cholesterol Urine WBC (Auto) Vancomycin Trough Coronavirus (PCR) Crossmatch 07/17/19 07/17/19 07/17/19 04:20 04:39 04:39 WBC 16.1 H RBC 2.92 L Hgb 8.0 L Hct 25.5 L MCV MCH MCHC 31 L RDW 19.7 H Plt Count 564 H Lymph % (Auto) 3.6 L [place] % (Auto) 7.4 H Lymph # 0.6 L [place] # 1.2 H Baso # Seg Neutrophils % 87.5 H Seg Neuts % (Manual) Lymphocytes % (Manual) Monocytes % (Manual) Nucleated RBC % Seg Neutrophils # 14.1 H Seg Neutrophils # Man Lymphocytes # (Manual) Monocytes # (Manual) Basophils # (Manual) PT INR D-Dimer ABG pH 7.231 L ABG pO2 95.3 H ABG HCO3 ABG O2 Saturation ABG Base Excess -5.0 L ABG Hemoglobin 7.9 L Oxyhemoglobin 94.8 L Sodium Potassium Chloride 107.8 H Carbon Dioxide 21 L BUN 68 H Creatinine Glucose POC Glucose Lactic Acid Calcium Magnesium Iron TIBC Ferritin AST ALT Lactate Dehydrogenase Troponin T C-Reactive Protein Total Protein Albumin Prealbumin Cholesterol LDL Cholesterol Direct HDL Cholesterol Urine WBC (Auto) Vancomycin Trough Coronavirus (PCR) Crossmatch 07/17/19 07/17/19 07/17/19 05:28 12:11 18:48 WBC RBC Hgb Hct MCV MCH MCHC RDW Plt Count Lymph % (Auto) [place] % (Auto) Lymph # [place] # Baso # Seg Neutrophils % Seg Neuts % (Manual) Lymphocytes % (Manual) Monocytes % (Manual) Nucleated RBC % Seg Neutrophils # Seg Neutrophils # Man Lymphocytes # (Manual) Monocytes # (Manual) Basophils # (Manual) PT INR D-Dimer ABG pH ABG pO2 ABG HCO3 ABG O2 Saturation ABG Base Excess ABG Hemoglobin Oxyhemoglobin Sodium Potassium Chloride Carbon Dioxide BUN Creatinine Glucose POC Glucose 121 H 125 H 174 H Lactic Acid Calcium Magnesium Iron TIBC Ferritin AST ALT Lactate Dehydrogenase Troponin T C-Reactive Protein Total Protein Albumin Prealbumin Cholesterol LDL Cholesterol Direct HDL Cholesterol Urine WBC (Auto) Vancomycin Trough Coronavirus (PCR) Crossmatch 07/17/19 07/17/19 07/18/19 19:55 23:57 02:30 WBC RBC Hgb Hct MCV MCH MCHC RDW Plt Count Lymph % (Auto) [place] % (Auto) Lymph # [place] # Baso # Seg Neutrophils % Seg Neuts % (Manual) Lymphocytes % (Manual) Monocytes % (Manual) Nucleated RBC % Seg Neutrophils # Seg Neutrophils # Man Lymphocytes # (Manual) Monocytes # (Manual) Basophils # (Manual) PT INR D-Dimer ABG pH 7.344 L 7.294 L ABG pO2 78.5 L 119.2 H ABG HCO3 ABG O2 Saturation ABG Base Excess -3.3 L -2.6 L ABG Hemoglobin 8.6 L 8.1 L Oxyhemoglobin 94.8 L Sodium Potassium Chloride Carbon Dioxide BUN Creatinine Glucose POC Glucose 148 H Lactic Acid Calcium Magnesium Iron TIBC Ferritin AST ALT Lactate Dehydrogenase Troponin T C-Reactive Protein Total Protein Albumin Prealbumin Cholesterol LDL Cholesterol Direct HDL Cholesterol Urine WBC (Auto) Vancomycin Trough Coronavirus (PCR) Crossmatch 07/18/19 07/18/19 07/18/19 04:49 05:22 05:22 WBC 15.9 H RBC 3.00 L Hgb 8.1 L Hct 26.0 L MCV MCH 27 L MCHC 31 L RDW 19.4 H Plt Count 733 H Lymph % (Auto) 6.3 L [place] % (Auto) 7.4 H Lymph # 1.0 L [place] # 1.2 H Baso # 0.2 H Seg Neutrophils % 83.8 H Seg Neuts % (Manual) Lymphocytes % (Manual) Monocytes % (Manual) Nucleated RBC % Seg Neutrophils # 13.3 H Seg Neutrophils # Man Lymphocytes # (Manual) Monocytes # (Manual) Basophils # (Manual) PT INR D-Dimer ABG pH ABG pO2 ABG HCO3 ABG O2 Saturation ABG Base Excess ABG Hemoglobin Oxyhemoglobin Sodium Potassium Chloride 110.6 H Carbon Dioxide BUN 61 H Creatinine Glucose 109 H POC Glucose 116 H Lactic Acid Calcium Magnesium Iron TIBC Ferritin AST ALT Lactate Dehydrogenase Troponin T C-Reactive Protein Total Protein Albumin Prealbumin Cholesterol LDL Cholesterol Direct HDL Cholesterol Urine WBC (Auto) Vancomycin Trough Coronavirus (PCR) Crossmatch 07/18/19 07/18/19 07/18/19 12:23 18:06 22:20 WBC RBC Hgb Hct MCV MCH MCHC RDW Plt Count Lymph % (Auto) [place] % (Auto) Lymph # [place] # Baso # Seg Neutrophils % Seg Neuts % (Manual) Lymphocytes % (Manual) Monocytes % (Manual) Nucleated RBC % Seg Neutrophils # Seg Neutrophils # Man Lymphocytes # (Manual) Monocytes # (Manual) Basophils # (Manual) PT INR D-Dimer ABG pH 7.338 L ABG pO2 135.1 H ABG HCO3 ABG O2 Saturation ABG Base Excess ABG Hemoglobin 9.2 L Oxyhemoglobin Sodium Potassium Chloride Carbon Dioxide BUN Creatinine Glucose POC Glucose 114 H 113 H Lactic Acid Calcium Magnesium Iron TIBC Ferritin AST ALT Lactate Dehydrogenase Troponin T C-Reactive Protein Total Protein Albumin Prealbumin Cholesterol LDL Cholesterol Direct HDL Cholesterol Urine WBC (Auto) Vancomycin Trough Coronavirus (PCR) Crossmatch 07/18/19 07/19/19 07/19/19 23:33 03:45 05:18 WBC RBC Hgb Hct MCV MCH MCHC RDW Plt Count Lymph % (Auto) [place] % (Auto) Lymph # [place] # Baso # Seg Neutrophils % Seg Neuts % (Manual) Lymphocytes % (Manual) Monocytes % (Manual) Nucleated RBC % Seg Neutrophils # Seg Neutrophils # Man Lymphocytes # (Manual) Monocytes # (Manual) Basophils # (Manual) PT INR D-Dimer ABG pH 7.342 L ABG pO2 95.0 H ABG HCO3 ABG O2 Saturation ABG Base Excess ABG Hemoglobin 8.5 L Oxyhemoglobin Sodium Potassium Chloride Carbon Dioxide BUN Creatinine Glucose POC Glucose 125 H 111 H Lactic Acid Calcium Magnesium Iron TIBC Ferritin AST ALT Lactate Dehydrogenase Troponin T C-Reactive Protein Total Protein Albumin Prealbumin Cholesterol LDL Cholesterol Direct HDL Cholesterol Urine WBC (Auto) Vancomycin Trough Coronavirus (PCR) Crossmatch 07/19/19 07/19/19 07/19/19 08:45 08:45 11:47 WBC 15.9 H RBC 3.31 L Hgb 9.1 L Hct 28.4 L MCV MCH 27 L MCHC RDW 19.1 H Plt Count 858 H Lymph % (Auto) 4.9 L [place] % (Auto) 8.1 H Lymph # 0.8 L [place] # 1.3 H Baso # Seg Neutrophils % 85.5 H Seg Neuts % (Manual) Lymphocytes % (Manual) Monocytes % (Manual) Nucleated RBC % Seg Neutrophils # 13.6 H Seg Neutrophils # Man Lymphocytes # (Manual) Monocytes # (Manual) Basophils # (Manual) PT INR D-Dimer ABG pH ABG pO2 ABG HCO3 ABG O2 Saturation ABG Base Excess ABG Hemoglobin Oxyhemoglobin Sodium Potassium Chloride 111.6 H Carbon Dioxide BUN 50 H Creatinine 0.7 L Glucose 118 H POC Glucose 114 H Lactic Acid Calcium Magnesium Iron TIBC Ferritin AST ALT Lactate Dehydrogenase Troponin T C-Reactive Protein Total Protein Albumin Prealbumin Cholesterol LDL Cholesterol Direct HDL Cholesterol Urine WBC (Auto) Vancomycin Trough Coronavirus (PCR) Crossmatch 07/19/19 07/19/19 07/20/19 18:25 23:44 04:39 WBC RBC Hgb Hct MCV MCH MCHC RDW Plt Count Lymph % (Auto) [place] % (Auto) Lymph # [place] # Baso # Seg Neutrophils % Seg Neuts % (Manual) Lymphocytes % (Manual) Monocytes % (Manual) Nucleated RBC % Seg Neutrophils # Seg Neutrophils # Man Lymphocytes # (Manual) Monocytes # (Manual) Basophils # (Manual) PT INR D-Dimer ABG pH ABG pO2 ABG HCO3 ABG O2 Saturation ABG Base Excess ABG Hemoglobin Oxyhemoglobin Sodium Potassium Chloride 110.3 H Carbon Dioxide BUN 44 H Creatinine 0.6 L Glucose 120 H POC Glucose 115 H 117 H Lactic Acid Calcium Magnesium Iron TIBC Ferritin AST ALT Lactate Dehydrogenase Troponin T C-Reactive Protein Total Protein Albumin Prealbumin Cholesterol LDL Cholesterol Direct HDL Cholesterol Urine WBC (Auto) Vancomycin Trough Coronavirus (PCR) Crossmatch 07/20/19 07/21/19 07/21/19 05:30 11:59 17:40 WBC RBC Hgb Hct MCV MCH MCHC RDW Plt Count Lymph % (Auto) [place] % (Auto) Lymph # [place] # Baso # Seg Neutrophils % Seg Neuts % (Manual) Lymphocytes % (Manual) Monocytes % (Manual) Nucleated RBC % Seg Neutrophils # Seg Neutrophils # Man Lymphocytes # (Manual) Monocytes # (Manual) Basophils # (Manual) PT INR D-Dimer ABG pH ABG pO2 ABG HCO3 ABG O2 Saturation ABG Base Excess ABG Hemoglobin Oxyhemoglobin Sodium Potassium Chloride Carbon Dioxide BUN Creatinine Glucose POC Glucose 131 H 122 H 125 H Lactic Acid Calcium Magnesium Iron TIBC Ferritin AST ALT Lactate Dehydrogenase Troponin T C-Reactive Protein Total Protein Albumin Prealbumin Cholesterol LDL Cholesterol Direct HDL Cholesterol Urine WBC (Auto) Vancomycin Trough Coronavirus (PCR) Crossmatch 07/22/19 07/22/19 07/22/19 05:38 05:38 12:29 WBC 12.6 H RBC 3.19 L Hgb 8.9 L Hct 27.5 L MCV MCH MCHC RDW 18.9 H Plt Count 1101 H* Lymph % (Auto) [place] % (Auto) 12.2 H Lymph # [place] # 1.5 H Baso # Seg Neutrophils % 72.8 H Seg Neuts % (Manual) 76.0 H Lymphocytes % (Manual) 7.0 L Monocytes % (Manual) 14.0 H Nucleated RBC % 1.0 H Seg Neutrophils # 9.2 H Seg Neutrophils # Man 9.6 H Lymphocytes # (Manual) 0.9 L Monocytes # (Manual) 1.8 H Basophils # (Manual) PT INR D-Dimer ABG pH ABG pO2 ABG HCO3 ABG O2 Saturation ABG Base Excess ABG Hemoglobin Oxyhemoglobin Sodium Potassium 3.4 L Chloride Carbon Dioxide BUN 29 H Creatinine 0.5 L Glucose POC Glucose 116 H Lactic Acid Calcium Magnesium Iron TIBC Ferritin AST ALT Lactate Dehydrogenase Troponin T C-Reactive Protein Total Protein Albumin Prealbumin Cholesterol LDL Cholesterol Direct HDL Cholesterol Urine WBC (Auto) Vancomycin Trough Coronavirus (PCR) Crossmatch 07/22/19 07/22/19 07/23/19 18:20 23:51 04:52 WBC RBC Hgb Hct MCV MCH MCHC RDW Plt Count Lymph % (Auto) [place] % (Auto) Lymph # [place] # Baso # Seg Neutrophils % Seg Neuts % (Manual) Lymphocytes % (Manual) Monocytes % (Manual) Nucleated RBC % Seg Neutrophils # Seg Neutrophils # Man Lymphocytes # (Manual) Monocytes # (Manual) Basophils # (Manual) PT INR D-Dimer ABG pH ABG pO2 ABG HCO3 ABG O2 Saturation ABG Base Excess ABG Hemoglobin Oxyhemoglobin Sodium Potassium Chloride Carbon Dioxide BUN 24 H Creatinine 0.4 L Glucose POC Glucose 107 H 110 H Lactic Acid Calcium Magnesium Iron TIBC Ferritin AST ALT Lactate Dehydrogenase Troponin T C-Reactive Protein Total Protein Albumin Prealbumin Cholesterol LDL Cholesterol Direct HDL Cholesterol Urine WBC (Auto) Vancomycin Trough Coronavirus (PCR) Crossmatch 07/23/19 07/23/19 07/24/19 06:00 23:15 04:40 WBC RBC Hgb Hct MCV MCH MCHC RDW Plt Count Lymph % (Auto) [place] % (Auto) Lymph # [place] # Baso # Seg Neutrophils % Seg Neuts % (Manual) Lymphocytes % (Manual) Monocytes % (Manual) Nucleated RBC % Seg Neutrophils # Seg Neutrophils # Man Lymphocytes # (Manual) Monocytes # (Manual) Basophils # (Manual) PT INR D-Dimer ABG pH ABG pO2 73.5 L ABG HCO3 27.0 H 28.5 H ABG O2 Saturation 94.5 L ABG Base Excess ABG Hemoglobin 9.4 L 8.9 L Oxyhemoglobin 94.0 L 92.7 L Sodium Potassium Chloride Carbon Dioxide BUN Creatinine Glucose POC Glucose 117 H Lactic Acid Calcium Magnesium Iron TIBC Ferritin AST ALT Lactate Dehydrogenase Troponin T C-Reactive Protein Total Protein Albumin Prealbumin Cholesterol LDL Cholesterol Direct HDL Cholesterol Urine WBC (Auto) Vancomycin Trough Coronavirus (PCR) Crossmatch 07/24/19 07/24/19 07/25/19 05:25 12:06 00:16 WBC RBC Hgb Hct MCV MCH MCHC RDW Plt Count Lymph % (Auto) [place] % (Auto) Lymph # [place] # Baso # Seg Neutrophils % Seg Neuts % (Manual) Lymphocytes % (Manual) Monocytes % (Manual) Nucleated RBC % Seg Neutrophils # Seg Neutrophils # Man Lymphocytes # (Manual) Monocytes # (Manual) Basophils # (Manual) PT INR D-Dimer ABG pH ABG pO2 ABG HCO3 ABG O2 Saturation ABG Base Excess ABG Hemoglobin Oxyhemoglobin Sodium Potassium Chloride Carbon Dioxide BUN Creatinine Glucose POC Glucose 114 H 108 H 106 H Lactic Acid Calcium Magnesium Iron TIBC Ferritin AST ALT Lactate Dehydrogenase Troponin T C-Reactive Protein Total Protein Albumin Prealbumin Cholesterol LDL Cholesterol Direct HDL Cholesterol Urine WBC (Auto) Vancomycin Trough Coronavirus (PCR) Crossmatch 07/25/19 07/25/19 07/25/19 05:14 05:14 05:17 WBC 17.8 H RBC 3.32 L Hgb 9.2 L Hct 28.6 L MCV MCH MCHC RDW 19.9 H Plt Count 994 H Lymph % (Auto) [place] % (Auto) Lymph # [place] # Baso # Seg Neutrophils % Seg Neuts % (Manual) 82.0 H Lymphocytes % (Manual) 5.0 L Monocytes % (Manual) Nucleated RBC % Seg Neutrophils # Seg Neutrophils # Man 14.6 H Lymphocytes # (Manual) 0.9 L Monocytes # (Manual) 1.2 H Basophils # (Manual) PT INR D-Dimer ABG pH ABG pO2 ABG HCO3 ABG O2 Saturation ABG Base Excess ABG Hemoglobin Oxyhemoglobin Sodium Potassium Chloride Carbon Dioxide BUN Creatinine 0.4 L Glucose 110 H POC Glucose 107 H Lactic Acid Calcium Magnesium Iron TIBC Ferritin AST ALT Lactate Dehydrogenase Troponin T C-Reactive Protein Total Protein Albumin Prealbumin Cholesterol LDL Cholesterol Direct HDL Cholesterol Urine WBC (Auto) Vancomycin Trough Coronavirus (PCR) Crossmatch 07/25/19 07/25/19 07/26/19 11:55 23:49 06:01 WBC RBC Hgb Hct MCV MCH MCHC RDW Plt Count Lymph % (Auto) [place] % (Auto) Lymph # [place] # Baso # Seg Neutrophils % Seg Neuts % (Manual) Lymphocytes % (Manual) Monocytes % (Manual) Nucleated RBC % Seg Neutrophils # Seg Neutrophils # Man Lymphocytes # (Manual) Monocytes # (Manual) Basophils # (Manual) PT INR D-Dimer ABG pH ABG pO2 ABG HCO3 ABG O2 Saturation ABG Base Excess ABG Hemoglobin Oxyhemoglobin Sodium Potassium Chloride Carbon Dioxide BUN Creatinine Glucose POC Glucose 123 H 118 H 106 H Lactic Acid Calcium Magnesium Iron TIBC Ferritin AST ALT Lactate Dehydrogenase Troponin T C-Reactive Protein Total Protein Albumin Prealbumin Cholesterol LDL Cholesterol Direct HDL Cholesterol Urine WBC (Auto) Vancomycin Trough Coronavirus (PCR) Crossmatch 07/26/19 07/27/19 07/27/19 17:02 00:28 05:16 WBC RBC Hgb Hct MCV MCH MCHC RDW Plt Count Lymph % (Auto) [place] % (Auto) Lymph # [place] # Baso # Seg Neutrophils % Seg Neuts % (Manual) Lymphocytes % (Manual) Monocytes % (Manual) Nucleated RBC % Seg Neutrophils # Seg Neutrophils # Man Lymphocytes # (Manual) Monocytes # (Manual) Basophils # (Manual) PT INR D-Dimer ABG pH ABG pO2 63.4 L ABG HCO3 31.3 H ABG O2 Saturation 92.7 L ABG Base Excess 6.3 H ABG Hemoglobin 7.6 L Oxyhemoglobin 90.9 L Sodium Potassium Chloride Carbon Dioxide BUN Creatinine Glucose POC Glucose 116 H 158 H Lactic Acid Calcium Magnesium Iron TIBC Ferritin AST ALT Lactate Dehydrogenase Troponin T C-Reactive Protein Total Protein Albumin Prealbumin Cholesterol LDL Cholesterol Direct HDL Cholesterol Urine WBC (Auto) Vancomycin Trough Coronavirus (PCR) Crossmatch 07/28/19 07/28/19 07/28/19 10:13 10:13 23:54 WBC 18.5 H RBC 3.20 L Hgb 8.8 L Hct 26.8 L MCV MCH 27 L MCHC RDW 19.9 H Plt Count 730 H Lymph % (Auto) [place] % (Auto) Lymph # [place] # Baso # Seg Neutrophils % Seg Neuts % (Manual) Lymphocytes % (Manual) Monocytes % (Manual) Nucleated RBC % Seg Neutrophils # Seg Neutrophils # Man Lymphocytes # (Manual) Monocytes # (Manual) Basophils # (Manual) PT INR D-Dimer ABG pH ABG pO2 ABG HCO3 ABG O2 Saturation ABG Base Excess ABG Hemoglobin Oxyhemoglobin Sodium Potassium 3.2 L Chloride 97.5 L Carbon Dioxide 31 H BUN Creatinine 0.5 L Glucose POC Glucose 120 H Lactic Acid Calcium Magnesium Iron TIBC Ferritin AST ALT Lactate Dehydrogenase Troponin T C-Reactive Protein Total Protein Albumin Prealbumin Cholesterol LDL Cholesterol Direct HDL Cholesterol Urine WBC (Auto) Vancomycin Trough Coronavirus (PCR) Crossmatch 07/29/19 07/29/19 07/29/19 11:57 17:43 Unknown WBC RBC Hgb Hct MCV MCH MCHC RDW Plt Count Lymph % (Auto) [place] % (Auto) Lymph # [place] # Baso # Seg Neutrophils % Seg Neuts % (Manual) Lymphocytes % (Manual) Monocytes % (Manual) Nucleated RBC % Seg Neutrophils # Seg Neutrophils # Man Lymphocytes # (Manual) Monocytes # (Manual) Basophils # (Manual) PT INR D-Dimer ABG pH ABG pO2 ABG HCO3 ABG O2 Saturation ABG Base Excess ABG Hemoglobin Oxyhemoglobin Sodium Potassium Chloride Carbon Dioxide BUN Creatinine Glucose POC Glucose 112 H Lactic Acid Calcium Magnesium Iron TIBC Ferritin AST ALT Lactate Dehydrogenase Troponin T C-Reactive Protein Total Protein Albumin Prealbumin Cholesterol LDL Cholesterol Direct HDL Cholesterol Urine WBC (Auto) 63.0 H Vancomycin Trough Coronavirus (PCR) Positive A Crossmatch 07/30/19 07/30/19 07/30/19 00:20 04:35 04:35 WBC 24.3 H RBC 3.12 L Hgb 8.5 L Hct 26.3 L MCV MCH 27 L MCHC RDW 20.2 H Plt Count 550 H Lymph % (Auto) [place] % (Auto) Lymph # [place] # Baso # Seg Neutrophils % Seg Neuts % (Manual) Lymphocytes % (Manual) Monocytes % (Manual) Nucleated RBC % Seg Neutrophils # Seg Neutrophils # Man Lymphocytes # (Manual) Monocytes # (Manual) Basophils # (Manual) PT INR D-Dimer ABG pH ABG pO2 ABG HCO3 ABG O2 Saturation ABG Base Excess ABG Hemoglobin Oxyhemoglobin Sodium Potassium 3.0 L Chloride 96.3 L Carbon Dioxide 32 H BUN Creatinine 0.5 L Glucose POC Glucose 106 H Lactic Acid Calcium Magnesium Iron TIBC Ferritin AST ALT Lactate Dehydrogenase Troponin T C-Reactive Protein Total Protein Albumin Prealbumin Cholesterol LDL Cholesterol Direct HDL Cholesterol Urine WBC (Auto) Vancomycin Trough Coronavirus (PCR) Crossmatch 07/31/19 07/31/19 07/31/19 04:42 04:42 11:33 WBC 23.8 H RBC 3.10 L Hgb 8.4 L Hct 26.1 L MCV MCH 27 L MCHC RDW 19.6 H Plt Count 561 H Lymph % (Auto) [place] % (Auto) Lymph # [place] # Baso # Seg Neutrophils % Seg Neuts % (Manual) Lymphocytes % (Manual) Monocytes % (Manual) Nucleated RBC % Seg Neutrophils # Seg Neutrophils # Man Lymphocytes # (Manual) Monocytes # (Manual) Basophils # (Manual) PT INR D-Dimer ABG pH ABG pO2 ABG HCO3 ABG O2 Saturation ABG Base Excess ABG Hemoglobin Oxyhemoglobin Sodium 135 L Potassium Chloride 93.9 L Carbon Dioxide 32 H BUN Creatinine 0.4 L Glucose POC Glucose 116 H Lactic Acid Calcium Magnesium Iron TIBC Ferritin AST ALT Lactate Dehydrogenase Troponin T C-Reactive Protein Total Protein Albumin 1.6 L Prealbumin 0.037 L Cholesterol LDL Cholesterol Direct HDL Cholesterol Urine WBC (Auto) Vancomycin Trough Coronavirus (PCR) Crossmatch 07/31/19 08/01/19 08/01/19 23:33 04:57 04:57 WBC 26.7 H RBC 3.12 L Hgb 8.5 L Hct 26.3 L MCV MCH 27 L MCHC RDW 19.2 H Plt Count 602 H Lymph % (Auto) [place] % (Auto) Lymph # [place] # Baso # Seg Neutrophils % Seg Neuts % (Manual) 93.0 H Lymphocytes % (Manual) 2.0 L Monocytes % (Manual) Nucleated RBC % Seg Neutrophils # Seg Neutrophils # Man 24.8 H Lymphocytes # (Manual) 0.5 L Monocytes # (Manual) 1.1 H Basophils # (Manual) PT INR D-Dimer ABG pH ABG pO2 ABG HCO3 ABG O2 Saturation ABG Base Excess ABG Hemoglobin Oxyhemoglobin Sodium 132 L Potassium Chloride 93.8 L Carbon Dioxide 31 H BUN Creatinine 0.3 L Glucose POC Glucose 148 H Lactic Acid Calcium 8.1 L Magnesium Iron TIBC Ferritin AST ALT Lactate Dehydrogenase Troponin T C-Reactive Protein Total Protein Albumin Prealbumin Cholesterol LDL Cholesterol Direct HDL Cholesterol Urine WBC (Auto) Vancomycin Trough Coronavirus (PCR) Crossmatch 08/01/19 08/02/19 08/02/19 12:16 00:22 05:24 WBC RBC Hgb Hct MCV MCH MCHC RDW Plt Count Lymph % (Auto) [place] % (Auto) Lymph # [place] # Baso # Seg Neutrophils % Seg Neuts % (Manual) Lymphocytes % (Manual) Monocytes % (Manual) Nucleated RBC % Seg Neutrophils # Seg Neutrophils # Man Lymphocytes # (Manual) Monocytes # (Manual) Basophils # (Manual) PT INR D-Dimer ABG pH ABG pO2 ABG HCO3 ABG O2 Saturation ABG Base Excess ABG Hemoglobin Oxyhemoglobin Sodium Potassium Chloride Carbon Dioxide BUN Creatinine Glucose POC Glucose 120 H 119 H 113 H Lactic Acid Calcium Magnesium Iron TIBC Ferritin AST ALT Lactate Dehydrogenase Troponin T C-Reactive Protein Total Protein Albumin Prealbumin Cholesterol LDL Cholesterol Direct HDL Cholesterol Urine WBC (Auto) Vancomycin Trough Coronavirus (PCR) Crossmatch 08/03/19 08/03/19 08/03/19 05:20 12:01 23:48 WBC RBC Hgb Hct MCV MCH MCHC RDW Plt Count Lymph % (Auto) [place] % (Auto) Lymph # [place] # Baso # Seg Neutrophils % Seg Neuts % (Manual) Lymphocytes % (Manual) Monocytes % (Manual) Nucleated RBC % Seg Neutrophils # Seg Neutrophils # Man Lymphocytes # (Manual) Monocytes # (Manual) Basophils # (Manual) PT INR D-Dimer ABG pH ABG pO2 ABG HCO3 ABG O2 Saturation ABG Base Excess ABG Hemoglobin Oxyhemoglobin Sodium Potassium Chloride Carbon Dioxide BUN Creatinine Glucose POC Glucose 118 H 106 H 120 H Lactic Acid Calcium Magnesium Iron TIBC Ferritin AST ALT Lactate Dehydrogenase Troponin T C-Reactive Protein Total Protein Albumin Prealbumin Cholesterol LDL Cholesterol Direct HDL Cholesterol Urine WBC (Auto) Vancomycin Trough Coronavirus (PCR) Crossmatch 08/04/19 08/04/19 08/04/19 05:38 05:38 06:29 WBC 26.1 H RBC 2.77 L Hgb 7.5 L Hct 23.2 L MCV MCH 27 L MCHC RDW 19.2 H Plt Count 648 H Lymph % (Auto) [place] % (Auto) Lymph # [place] # Baso # Seg Neutrophils % Seg Neuts % (Manual) 90.5 H Lymphocytes % (Manual) 3.5 L Monocytes % (Manual) Nucleated RBC % Seg Neutrophils # Seg Neutrophils # Man 23.6 H Lymphocytes # (Manual) 0.9 L Monocytes # (Manual) 1.2 H Basophils # (Manual) PT INR D-Dimer ABG pH ABG pO2 ABG HCO3 ABG O2 Saturation ABG Base Excess ABG Hemoglobin Oxyhemoglobin Sodium 132 L Potassium 3.4 L D Chloride 92.7 L Carbon Dioxide 33 H BUN Creatinine 0.2 L Glucose POC Glucose 108 H Lactic Acid Calcium 8.1 L Magnesium Iron TIBC Ferritin AST ALT Lactate Dehydrogenase Troponin T C-Reactive Protein Total Protein Albumin Prealbumin Cholesterol LDL Cholesterol Direct HDL Cholesterol Urine WBC (Auto) Vancomycin Trough Coronavirus (PCR) Crossmatch 08/04/19 08/05/19 08/05/19 12:30 04:58 04:58 WBC 21.0 H RBC 2.63 L Hgb 7.2 L Hct 21.9 L MCV 83 L MCH 27 L MCHC RDW 18.9 H Plt Count 691 H Lymph % (Auto) [place] % (Auto) Lymph # [place] # Baso # Seg Neutrophils % Seg Neuts % (Manual) 86.0 H Lymphocytes % (Manual) 3.0 L Monocytes % (Manual) 10.0 H Nucleated RBC % Seg Neutrophils # Seg Neutrophils # Man 18.1 H Lymphocytes # (Manual) 0.6 L Monocytes # (Manual) 2.1 H Basophils # (Manual) PT INR D-Dimer ABG pH ABG pO2 ABG HCO3 ABG O2 Saturation ABG Base Excess ABG Hemoglobin Oxyhemoglobin Sodium 134 L Potassium 3.2 L Chloride 93.2 L Carbon Dioxide 34 H BUN 8 L Creatinine 0.3 L Glucose POC Glucose 138 H Lactic Acid Calcium 8.1 L Magnesium Iron TIBC Ferritin AST ALT Lactate Dehydrogenase Troponin T C-Reactive Protein Total Protein Albumin Prealbumin Cholesterol LDL Cholesterol Direct HDL Cholesterol Urine WBC (Auto) Vancomycin Trough Coronavirus (PCR) Crossmatch 08/05/19 08/05/19 08/05/19 11:53 17:57 23:58 WBC RBC Hgb Hct MCV MCH MCHC RDW Plt Count Lymph % (Auto) [place] % (Auto) Lymph # [place] # Baso # Seg Neutrophils % Seg Neuts % (Manual) Lymphocytes % (Manual) Monocytes % (Manual) Nucleated RBC % Seg Neutrophils # Seg Neutrophils # Man Lymphocytes # (Manual) Monocytes # (Manual) Basophils # (Manual) PT INR D-Dimer ABG pH ABG pO2 ABG HCO3 ABG O2 Saturation ABG Base Excess ABG Hemoglobin Oxyhemoglobin Sodium Potassium Chloride Carbon Dioxide BUN Creatinine Glucose POC Glucose 106 H 111 H 116 H Lactic Acid Calcium Magnesium Iron TIBC Ferritin AST ALT Lactate Dehydrogenase Troponin T C-Reactive Protein Total Protein Albumin Prealbumin Cholesterol LDL Cholesterol Direct HDL Cholesterol Urine WBC (Auto) Vancomycin Trough Coronavirus (PCR) Crossmatch 08/06/19 08/06/19 08/06/19 04:11 04:11 06:04 WBC 20.8 H RBC 2.80 L Hgb 7.6 L Hct 23.5 L MCV MCH 27 L MCHC RDW 19.0 H Plt Count 723 H Lymph % (Auto) [place] % (Auto) Lymph # [place] # Baso # Seg Neutrophils % Seg Neuts % (Manual) 88.0 H Lymphocytes % (Manual) 3.0 L Monocytes % (Manual) Nucleated RBC % Seg Neutrophils # Seg Neutrophils # Man 18.3 H Lymphocytes # (Manual) 0.6 L Monocytes # (Manual) Basophils # (Manual) 0.2 H PT INR D-Dimer ABG pH ABG pO2 ABG HCO3 ABG O2 Saturation ABG Base Excess ABG Hemoglobin Oxyhemoglobin Sodium Potassium 3.4 L Chloride 95.2 L Carbon Dioxide 32 H BUN Creatinine 0.3 L Glucose POC Glucose 108 H Lactic Acid Calcium 8.2 L Magnesium Iron TIBC Ferritin AST ALT Lactate Dehydrogenase Troponin T C-Reactive Protein Total Protein Albumin Prealbumin Cholesterol LDL Cholesterol Direct HDL Cholesterol Urine WBC (Auto) Vancomycin Trough Coronavirus (PCR) Crossmatch 08/06/19 08/06/19 08/07/19 12:23 17:13 00:21 WBC RBC Hgb Hct MCV MCH MCHC RDW Plt Count Lymph % (Auto) [place] % (Auto) Lymph # [place] # Baso # Seg Neutrophils % Seg Neuts % (Manual) Lymphocytes % (Manual) Monocytes % (Manual) Nucleated RBC % Seg Neutrophils # Seg Neutrophils # Man Lymphocytes # (Manual) Monocytes # (Manual) Basophils # (Manual) PT INR D-Dimer ABG pH ABG pO2 ABG HCO3 ABG O2 Saturation ABG Base Excess ABG Hemoglobin Oxyhemoglobin Sodium Potassium Chloride Carbon Dioxide BUN Creatinine Glucose POC Glucose 112 H 132 H 147 H Lactic Acid Calcium Magnesium Iron TIBC Ferritin AST ALT Lactate Dehydrogenase Troponin T C-Reactive Protein Total Protein Albumin Prealbumin Cholesterol LDL Cholesterol Direct HDL Cholesterol Urine WBC (Auto) Vancomycin Trough Coronavirus (PCR) Crossmatch 08/07/19 08/07/19 08/07/19 05:16 05:23 05:23 WBC 30.3 H RBC 2.69 L Hgb 7.1 L Hct 22.2 L MCV 83 L MCH 27 L MCHC RDW 19.1 H Plt Count 650 H Lymph % (Auto) [place] % (Auto) Lymph # [place] # Baso # Seg Neutrophils % Seg Neuts % (Manual) 88.0 H Lymphocytes % (Manual) 5.0 L Monocytes % (Manual) Nucleated RBC % Seg Neutrophils # Seg Neutrophils # Man 26.7 H Lymphocytes # (Manual) Monocytes # (Manual) 2.1 H Basophils # (Manual) PT INR D-Dimer ABG pH ABG pO2 ABG HCO3 ABG O2 Saturation ABG Base Excess ABG Hemoglobin Oxyhemoglobin Sodium 135 L Potassium 3.4 L Chloride 95.4 L Carbon Dioxide 32 H BUN Creatinine 0.4 L Glucose 120 H POC Glucose 120 H Lactic Acid Calcium 7.7 L Magnesium Iron TIBC Ferritin AST ALT Lactate Dehydrogenase Troponin T C-Reactive Protein Total Protein Albumin Prealbumin Cholesterol LDL Cholesterol Direct HDL Cholesterol Urine WBC (Auto) Vancomycin Trough Coronavirus (PCR) Crossmatch 08/07/19 08/07/19 08/07/19 10:24 10:24 11:10 WBC RBC Hgb Hct MCV MCH MCHC RDW Plt Count Lymph % (Auto) [place] % (Auto) Lymph # [place] # Baso # Seg Neutrophils % Seg Neuts % (Manual) Lymphocytes % (Manual) Monocytes % (Manual) Nucleated RBC % Seg Neutrophils # Seg Neutrophils # Man Lymphocytes # (Manual) Monocytes # (Manual) Basophils # (Manual) PT INR D-Dimer 1808.06 H ABG pH ABG pO2 73.3 L ABG HCO3 33.9 H ABG O2 Saturation ABG Base Excess 9.0 H ABG Hemoglobin 6.3 L Oxyhemoglobin 94.3 L Sodium Potassium Chloride Carbon Dioxide BUN Creatinine Glucose POC Glucose Lactic Acid Calcium Magnesium Iron TIBC Ferritin AST ALT Lactate Dehydrogenase Troponin T C-Reactive Protein 11.10 H Total Protein Albumin Prealbumin Cholesterol LDL Cholesterol Direct HDL Cholesterol Urine WBC (Auto) Vancomycin Trough Coronavirus (PCR) Crossmatch 08/07/19 08/08/19 08/08/19 12:01 04:41 04:41 WBC 22.1 H RBC 2.82 L Hgb 7.7 L Hct 23.6 L MCV MCH 27 L MCHC RDW 19.1 H Plt Count 722 H Lymph % (Auto) [place] % (Auto) Lymph # [place] # Baso # Seg Neutrophils % Seg Neuts % (Manual) 90.0 H Lymphocytes % (Manual) 3.0 L Monocytes % (Manual) Nucleated RBC % Seg Neutrophils # Seg Neutrophils # Man 19.9 H Lymphocytes # (Manual) 0.7 L Monocytes # (Manual) 1.3 H Basophils # (Manual) PT INR D-Dimer ABG pH ABG pO2 ABG HCO3 ABG O2 Saturation ABG Base Excess ABG Hemoglobin Oxyhemoglobin Sodium 136 L Potassium Chloride 97.8 L Carbon Dioxide BUN Creatinine 0.3 L Glucose 105 H POC Glucose 130 H Lactic Acid Calcium 7.8 L Magnesium Iron TIBC Ferritin AST ALT Lactate Dehydrogenase Troponin T C-Reactive Protein Total Protein Albumin Prealbumin Cholesterol LDL Cholesterol Direct HDL Cholesterol Urine WBC (Auto) Vancomycin Trough Coronavirus (PCR) Crossmatch 08/08/19 08/08/19 08/09/19 11:46 18:35 00:12 WBC RBC Hgb Hct MCV MCH MCHC RDW Plt Count Lymph % (Auto) [place] % (Auto) Lymph # [place] # Baso # Seg Neutrophils % Seg Neuts % (Manual) Lymphocytes % (Manual) Monocytes % (Manual) Nucleated RBC % Seg Neutrophils # Seg Neutrophils # Man Lymphocytes # (Manual) Monocytes # (Manual) Basophils # (Manual) PT INR D-Dimer ABG pH ABG pO2 ABG HCO3 ABG O2 Saturation ABG Base Excess ABG Hemoglobin Oxyhemoglobin Sodium Potassium Chloride Carbon Dioxide BUN Creatinine Glucose POC Glucose 117 H 117 H 117 H Lactic Acid Calcium Magnesium Iron TIBC Ferritin AST ALT Lactate Dehydrogenase Troponin T C-Reactive Protein Total Protein Albumin Prealbumin Cholesterol LDL Cholesterol Direct HDL Cholesterol Urine WBC (Auto) Vancomycin Trough Coronavirus (PCR) Crossmatch 08/09/19 08/09/19 08/09/19 05:33 12:22 17:48 WBC RBC Hgb Hct MCV MCH MCHC RDW Plt Count Lymph % (Auto) [place] % (Auto) Lymph # [place] # Baso # Seg Neutrophils % Seg Neuts % (Manual) Lymphocytes % (Manual) Monocytes % (Manual) Nucleated RBC % Seg Neutrophils # Seg Neutrophils # Man Lymphocytes # (Manual) Monocytes # (Manual) Basophils # (Manual) PT INR D-Dimer ABG pH ABG pO2 ABG HCO3 ABG O2 Saturation ABG Base Excess ABG Hemoglobin Oxyhemoglobin Sodium Potassium Chloride Carbon Dioxide BUN Creatinine Glucose POC Glucose 119 H 133 H 123 H Lactic Acid Calcium Magnesium Iron TIBC Ferritin AST ALT Lactate Dehydrogenase Troponin T C-Reactive Protein Total Protein Albumin Prealbumin Cholesterol LDL Cholesterol Direct HDL Cholesterol Urine WBC (Auto) Vancomycin Trough Coronavirus (PCR) Crossmatch 08/09/19 08/09/19 08/10/19 17:59 18:15 00:02 WBC RBC Hgb 6.7 L Hct 20.4 L MCV MCH MCHC RDW Plt Count Lymph % (Auto) [place] % (Auto) Lymph # [place] # Baso # Seg Neutrophils % Seg Neuts % (Manual) Lymphocytes % (Manual) Monocytes % (Manual) Nucleated RBC % Seg Neutrophils # Seg Neutrophils # Man Lymphocytes # (Manual) Monocytes # (Manual) Basophils # (Manual) PT INR D-Dimer ABG pH ABG pO2 ABG HCO3 ABG O2 Saturation ABG Base Excess ABG Hemoglobin Oxyhemoglobin Sodium Potassium Chloride Carbon Dioxide BUN Creatinine Glucose POC Glucose 124 H Lactic Acid Calcium Magnesium Iron TIBC Ferritin AST ALT Lactate Dehydrogenase Troponin T C-Reactive Protein Total Protein Albumin Prealbumin Cholesterol LDL Cholesterol Direct HDL Cholesterol Urine WBC (Auto) Vancomycin Trough Coronavirus (PCR) Crossmatch See Detail 08/10/19 08/10/19 08/10/19 05:47 08:00 08:00 WBC 16.9 H RBC 2.94 L Hgb 8.2 L Hct 24.9 L MCV MCH MCHC RDW 17.0 H Plt Count 661 H Lymph % (Auto) [place] % (Auto) Lymph # [place] # Baso # Seg Neutrophils % Seg Neuts % (Manual) Lymphocytes % (Manual) Monocytes % (Manual) Nucleated RBC % Seg Neutrophils # Seg Neutrophils # Man Lymphocytes # (Manual) Monocytes # (Manual) Basophils # (Manual) PT INR D-Dimer ABG pH ABG pO2 ABG HCO3 ABG O2 Saturation ABG Base Excess ABG Hemoglobin Oxyhemoglobin Sodium Potassium Chloride Carbon Dioxide BUN Creatinine 0.3 L Glucose 116 H POC Glucose 148 H Lactic Acid Calcium 7.7 L Magnesium Iron TIBC Ferritin AST ALT Lactate Dehydrogenase Troponin T C-Reactive Protein Total Protein Albumin Prealbumin Cholesterol LDL Cholesterol Direct HDL Cholesterol Urine WBC (Auto) Vancomycin Trough Coronavirus (PCR) Crossmatch 08/10/19 08/10/19 08/10/19 12:38 18:06 23:56 WBC RBC Hgb Hct MCV MCH MCHC RDW Plt Count Lymph % (Auto) [place] % (Auto) Lymph # [place] # Baso # Seg Neutrophils % Seg Neuts % (Manual) Lymphocytes % (Manual) Monocytes % (Manual) Nucleated RBC % Seg Neutrophils # Seg Neutrophils # Man Lymphocytes # (Manual) Monocytes # (Manual) Basophils # (Manual) PT INR D-Dimer ABG pH ABG pO2 ABG HCO3 ABG O2 Saturation ABG Base Excess ABG Hemoglobin Oxyhemoglobin Sodium Potassium Chloride Carbon Dioxide BUN Creatinine Glucose POC Glucose 113 H 126 H 115 H Lactic Acid Calcium Magnesium Iron TIBC Ferritin AST ALT Lactate Dehydrogenase Troponin T C-Reactive Protein Total Protein Albumin Prealbumin Cholesterol LDL Cholesterol Direct HDL Cholesterol Urine WBC (Auto) Vancomycin Trough Coronavirus (PCR) Crossmatch 08/10/19 08/11/19 08/12/19 Unknown 18:10 03:30 WBC 14.4 H RBC 2.58 L Hgb 7.4 L Hct 22.1 L MCV MCH MCHC RDW 17.4 H Plt Count 786 H Lymph % (Auto) [place] % (Auto) Lymph # [place] # Baso # Seg Neutrophils % Seg Neuts % (Manual) Lymphocytes % (Manual) Monocytes % (Manual) Nucleated RBC % Seg Neutrophils # Seg Neutrophils # Man Lymphocytes # (Manual) Monocytes # (Manual) Basophils # (Manual) PT INR D-Dimer ABG pH ABG pO2 ABG HCO3 ABG O2 Saturation ABG Base Excess ABG Hemoglobin Oxyhemoglobin Sodium Potassium Chloride Carbon Dioxide BUN Creatinine Glucose POC Glucose 106 H Lactic Acid Calcium Magnesium Iron TIBC Ferritin AST ALT Lactate Dehydrogenase Troponin T C-Reactive Protein Total Protein Albumin Prealbumin Cholesterol LDL Cholesterol Direct HDL Cholesterol Urine WBC (Auto) Vancomycin Trough Coronavirus (PCR) Positive A Crossmatch 08/12/19 08/12/19 08/13/19 03:30 12:08 05:25 WBC RBC Hgb Hct MCV MCH MCHC RDW Plt Count Lymph % (Auto) [place] % (Auto) Lymph # [place] # Baso # Seg Neutrophils % Seg Neuts % (Manual) Lymphocytes % (Manual) Monocytes % (Manual) Nucleated RBC % Seg Neutrophils # Seg Neutrophils # Man Lymphocytes # (Manual) Monocytes # (Manual) Basophils # (Manual) PT INR D-Dimer ABG pH ABG pO2 ABG HCO3 ABG O2 Saturation ABG Base Excess ABG Hemoglobin Oxyhemoglobin Sodium Potassium Chloride Carbon Dioxide BUN 7 L Creatinine 0.3 L Glucose 117 H POC Glucose 112 H 126 H Lactic Acid Calcium 7.8 L Magnesium Iron TIBC Ferritin AST ALT Lactate Dehydrogenase Troponin T C-Reactive Protein Total Protein Albumin Prealbumin Cholesterol LDL Cholesterol Direct HDL Cholesterol Urine WBC (Auto) Vancomycin Trough Coronavirus (PCR) Crossmatch 08/13/19 08/13/19 08/13/19 11:36 17:10 19:06 WBC RBC Hgb Hct MCV MCH MCHC RDW Plt Count Lymph % (Auto) [place] % (Auto) Lymph # [place] # Baso # Seg Neutrophils % Seg Neuts % (Manual) Lymphocytes % (Manual) Monocytes % (Manual) Nucleated RBC % Seg Neutrophils # Seg Neutrophils # Man Lymphocytes # (Manual) Monocytes # (Manual) Basophils # (Manual) PT INR D-Dimer ABG pH ABG pO2 105.0 H ABG HCO3 28.5 H ABG O2 Saturation ABG Base Excess 3.5 H ABG Hemoglobin 7.8 L Oxyhemoglobin Sodium Potassium Chloride Carbon Dioxide BUN Creatinine Glucose POC Glucose 143 H 107 H Lactic Acid Calcium Magnesium Iron TIBC Ferritin AST ALT Lactate Dehydrogenase Troponin T C-Reactive Protein Total Protein Albumin Prealbumin Cholesterol LDL Cholesterol Direct HDL Cholesterol Urine WBC (Auto) Vancomycin Trough Coronavirus (PCR) Crossmatch 08/13/19 08/14/19 08/14/19 23:23 05:00 05:00 WBC 14.3 H RBC 2.76 L Hgb 7.8 L Hct 23.9 L MCV MCH MCHC RDW 18.7 H Plt Count 896 H Lymph % (Auto) [place] % (Auto) Lymph # [place] # Baso # Seg Neutrophils % Seg Neuts % (Manual) Lymphocytes % (Manual) Monocytes % (Manual) Nucleated RBC % Seg Neutrophils # Seg Neutrophils # Man Lymphocytes # (Manual) Monocytes # (Manual) Basophils # (Manual) PT INR D-Dimer ABG pH ABG pO2 ABG HCO3 ABG O2 Saturation ABG Base Excess ABG Hemoglobin Oxyhemoglobin Sodium Potassium Chloride Carbon Dioxide BUN 6 L Creatinine 0.3 L Glucose POC Glucose 125 H Lactic Acid Calcium 8.2 L Magnesium Iron TIBC Ferritin AST ALT Lactate Dehydrogenase Troponin T C-Reactive Protein Total Protein Albumin Prealbumin Cholesterol LDL Cholesterol Direct HDL Cholesterol Urine WBC (Auto) Vancomycin Trough Coronavirus (PCR) Crossmatch 08/14/19 08/15/19 08/15/19 05:07 00:25 05:42 WBC RBC Hgb Hct MCV MCH MCHC RDW Plt Count Lymph % (Auto) [place] % (Auto) Lymph # [place] # Baso # Seg Neutrophils % Seg Neuts % (Manual) Lymphocytes % (Manual) Monocytes % (Manual) Nucleated RBC % Seg Neutrophils # Seg Neutrophils # Man Lymphocytes # (Manual) Monocytes # (Manual) Basophils # (Manual) PT INR D-Dimer ABG pH ABG pO2 ABG HCO3 ABG O2 Saturation ABG Base Excess ABG Hemoglobin Oxyhemoglobin Sodium Potassium Chloride Carbon Dioxide BUN Creatinine Glucose POC Glucose 128 H 117 H 115 H Lactic Acid Calcium Magnesium Iron TIBC Ferritin AST ALT Lactate Dehydrogenase Troponin T C-Reactive Protein Total Protein Albumin Prealbumin Cholesterol LDL Cholesterol Direct HDL Cholesterol Urine WBC (Auto) Vancomycin Trough Coronavirus (PCR) Crossmatch 08/15/19 08/15/19 08/15/19 06:10 06:10 06:10 WBC 11.6 H RBC 2.68 L Hgb 7.7 L Hct 23.3 L MCV MCH MCHC RDW 19.2 H Plt Count 885 H Lymph % (Auto) [place] % (Auto) Lymph # [place] # Baso # Seg Neutrophils % Seg Neuts % (Manual) Lymphocytes % (Manual) Monocytes % (Manual) Nucleated RBC % Seg Neutrophils # Seg Neutrophils # Man Lymphocytes # (Manual) Monocytes # (Manual) Basophils # (Manual) PT INR D-Dimer ABG pH ABG pO2 ABG HCO3 ABG O2 Saturation ABG Base Excess ABG Hemoglobin Oxyhemoglobin Sodium Potassium Chloride Carbon Dioxide BUN 6 L Creatinine 0.3 L Glucose 107 H POC Glucose Lactic Acid Calcium 8.2 L Magnesium 1.50 L Iron TIBC Ferritin AST ALT Lactate Dehydrogenase Troponin T C-Reactive Protein Total Protein Albumin Prealbumin Cholesterol LDL Cholesterol Direct HDL Cholesterol Urine WBC (Auto) Vancomycin Trough Coronavirus (PCR) Crossmatch 08/15/19 12:12 WBC RBC Hgb Hct MCV MCH MCHC RDW Plt Count Lymph % (Auto) [place] % (Auto) Lymph # [place] # Baso # Seg Neutrophils % Seg Neuts % (Manual) Lymphocytes % (Manual) Monocytes % (Manual) Nucleated RBC % Seg Neutrophils # Seg Neutrophils # Man Lymphocytes # (Manual) Monocytes # (Manual) Basophils # (Manual) PT INR D-Dimer ABG pH ABG pO2 ABG HCO3 ABG O2 Saturation ABG Base Excess ABG Hemoglobin Oxyhemoglobin Sodium Potassium Chloride Carbon Dioxide BUN Creatinine Glucose POC Glucose 112 H Lactic Acid Calcium Magnesium Iron TIBC Ferritin AST ALT Lactate Dehydrogenase Troponin T C-Reactive Protein Total Protein Albumin Prealbumin Cholesterol LDL Cholesterol Direct HDL Cholesterol Urine WBC (Auto) Vancomycin Trough Coronavirus (PCR) Crossmatch Allied health notes reviewed: nursing
--- NOTE | 2019-08-15 14:41 | Progress Note ---
Assessment and Plan Cultures: 07/03/2019 urine culture: No growth 07/03/2019 Tracheal aspirate: E.coli 07/29/2019 urine culture: neg 07/30/2019 blood culture: no growth tracheal asp + Pseudomonas 08/06/2019 blood culture: no growth 08/09/2019 Wound MDR Enterobacter A/P: 69-year-old male with CVA, hypertension, dementia, schizophrenia, alcohol use disorder was admitted to the emergency room after being brought in by EMS with progressive shortness of breath and unresponsiveness. He was noted to have agonal breathing and a faint pulse requiring CPR. It seems patient was on hospice recently, prior to admission. #Shock, likely septic: shock resolved, remains off pressors. still fever, leukocytosis better ? bacterial pneumonia vs sacral decubitus infection. Very high procal=24 on 07/29 most recent 0.5 #Nonresolving pneumonia/Cavitary pneumonia: ? abscess. Sputum +Pseudomonas. CT shows RUL pneumonia with 2.4 cm cavity and LLL pneumonia with moderate left pleu ral effusion. No need for thoracentesis per Pulm #Penile/scrotal and buttocks wounds: ?cellulitis #Sacral decubitus: worsening on last exam ? necrotic. Evaluated for surgery, no indications for intervention. 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 bleeding overnight s/p surgical management bedside, 08/09/2019 Wound MDR Enterobacter likely a colonizer (superficial wound cx) #UTI: per documentation initial carroll placed on 07/03, exchanged on 07/31. #History of Severe COVID-19 disease and pneumonia: Markers improving. Completed Plaquenil. Completed Ceftriaxone for treatment E.coli in tracheal aspirate. rep eat COVID 08/10/2019 positive. #Acute respiratory failure: on mechanical ventilation. #Transaminitis: Likely from COVID-19, shock #Multiple skin tears documented on admission #Anemia: from sacral wound bleeding Recs: Continue zosyn IV 4.5 g IV q 8 hour Off loading Anticipate to d/c on zosyn 4.5 gm IV q 8 hour for 3 weeks until 08/27/2019 to cover for lung abscess and sacral wound infection/osteomyelitis, I am holding off 6 weeks treatment for osteomyelitis as possibility of flap/healing is unlikely. guarded prognosis Padmaja Garcia MD Infectious Diseases [place] [facility] M [phone] O [phone] Subjective Date of service: 08/15/19 Principal diagnosis: Bilateral pneumonia, severe sepsis with septic shock, encephalopathy Interval history: Remains intubated, tmax 100.1, alert, intubated Objective - Exam Narrative Exam: General appearance: sedated on the vent Eyes: anicteric sclerae, moist conjunctivae; no lid-lag; PERRLA HENT: Atraumatic; oropharynx ETT with thick yellow secretion, NGT Lungs: madelin rhonchi per RT CV: RRR Abdomen: Soft, non-tender Extremities: marked madelin arm and leg edema Skin: No rash. Genital: penile/scrotal ulcer with scab covered w dressings Psych: no agitated Neuro: sedated Carroll - Constitutional Vitals: Vital Signs Temp Pulse Resp BP Pulse Ox 98.1 F 107 H 26 H 151/80 100 08/15/19 08:00 08/15/19 11:19 08/15/19 11:19 08/15/19 11:19 08/15/19 11:19 Temperature -Last 24 Hours Temperature 98.1 F Temperature 98.7 F Temperature 98.8 F Temperature 97.8 F Temperature 97.4 F - Labs CBC & Chem 7: 08/15/19 06:10 08/15/19 06:10 Labs: Abnormal lab results 08/15/19 08/15/19 08/15/19 Range/Units 00:25 05:42 06:10 WBC (4.5-11.0) K/mm3 RBC (3.65-5.03) M/mm3 Hgb (11.8-15.2) gm/dl Hct (35.5-45.6) % RDW (13.2-15.2) % Plt Count (140-440) K/mm3 BUN (9-20) mg/dL Creatinine (0.8-1.5) mg/dL Glucose (75-100) mg/dL POC Glucose 117 H 115 H (70-105) Calcium (8.4-10.2) mg/dL Magnesium 1.50 L (1.7-2.3) mg/dL 08/15/19 08/15/19 08/15/19 Range/Units 06:10 06:10 12:12 WBC 11.6 H (4.5-11.0) K/mm3 RBC 2.68 L (3.65-5.03) M/mm3 Hgb 7.7 L (11.8-15.2) gm/dl Hct 23.3 L (35.5-45.6) % RDW 19.2 H (13.2-15.2) % Plt Count 885 H (140-440) K/mm3 BUN 6 L (9-20) mg/dL Creatinine 0.3 L (0.8-1.5) mg/dL Glucose 107 H (75-100) mg/dL POC Glucose 112 H (70-105) Calcium 8.2 L (8.4-10.2) mg/dL Magnesium (1.7-2.3) mg/dL
--- NOTE | 2019-08-15 18:33 | Progress Note ---
Assessment and Plan Assessment and plan: 69-year-old male with PMH of CVA with RHP, HTN, DM2, SCZ, Dementia, Alcohol use D/o, Seizure D/O, presents to the emergency department via EMS from home with progressive SOB and impending respiratory failure with an unresponsive episode. Apparently the patient was witnessed becoming unresponsive by family members. Reportedly, pt had just gotten a high dose of Hyoscamine When EMS got there, the patient was agonal breathing and had a faint pulse. No CPR was indicated per EMS. PT was intubated and received some IV fluid en route to the hospital. THe pt was under hospice- [facility] and reportedly the patient is a DNR according to the family but they were unable to provide the appropriate paperwork and to explain why the pt was discharged from hospice. The patient is bed bound and has LE atrophy and contractures. He also has history of cervical spine fracture, allegedly a fracture of some level of his back. A reliable HPI cannot be obtained from the pt due to mechanical ventilation. In the ED, pt was found to have bilateral PNA on CXR and WBC was 30K. --COVid positive pneumonia with severe sepsis ?abscess No need for drianage per ID/pULM Received Plaquenil and cefepime, monitor off antibiotics ID following --Septic shock: Improving hemodynamics was treated with Pressors Persistent hypotension, -- Acute respiratory Failure with Hypoxia Due to bilateral PNA with COVID 19 infection. On ventilatory support, unable to wean Pulmonary critical following --COPD with exacerbation Likely due to COVID-19 pneumonia Continue scheduled nebs --Anemia, Microcytic persistent s/p total 3 unit of PRBC, today Hb today 9.1 --Pressure Ulcers: concerning for osteomylitis POA/ Scrotal ulcers buttocks, right lateral foot area wound and supportive care --Hyponatremia, resolved --DM type 2: Accu-Chek SCC tube feeding, insulin as needed --h/o HTN Essential, now hypotensive On Levophed --Seizure D/o/CVA/immobility/BIpolar D/o/SCZ Seizure precautions, antiepileptic medications --Severe PCM, TF supportive care, dietary following patient is DNR- Called and verified information Very poor prognosis, Recommend hospice 07/04: COVID +ve, start on plaquinil, called no answer 07/05: transfuse one unit PRBC, Hb dropped to ~6, called and updated 07/06; H&H stable, serum chemistry improved. On mechanical ventilation with high inflammatory markers. Continue Plaquenil and empiric antibiotics. ID following, prognosis remains guarded and extremely poor. 07/07: On mechanical ventilation with high inflammatory markers. Continue Plaquenil and empiric antibiotics. ID following, prognosis remains guarded and extremely poor. 07/08: Called today and verified the CODE STATUS. Patient remains DNR. He is still intubated, with poor prognosis. Continue to follow inflammatory markers. 07/09 wean off from vent as tolerated, completed empiric antibiotic and Plaquenil 07/10 wean off from vent as tolerated. poor prognosis 07/11 hb 6.7 today, transfuse one PRBC. wean off from vent as tolerated. poor prognosis 07/12 remains critically on vent. Hb 6.9 07/13 Hb dropped to 6.6, transfuse 1 unit of PRBC, remains on vent critically ill Hypotensive, fluid bolus, if no improvement start Levophed 07/14; remains anemic with hemoglobin of 6.8, received total 3 units of PRBC Additional 1 unit of PRBC today, stool for occult blood to rule out GI causes Started back on Levophed due to hypotension 07/15; patient remains critically ill, hypotensive on Levophed 07/16: Today remains intubated on vent, persistent hypotension on Levophed 07/17; clinically no change, pressor dependent[on Levophed] DNR status 07/18: Patient remains hypotensive requiring Levophed, intubated on vent Unable to wean, critically ill. DNR 07/20/2019 Patient remains hypotensive requiring Levophed, intubated on vent. Patient currently with AC mode ventilation, rate 20, tidal volume 500, FiO2 40% and PEEP 6. Patient is a poor prognosis and apparently was on hospice recently. 07/21/2019. Patient with PEG tube that was clogged yesterday. surgery evaluated the patient and noted Very long PEG tubing with thick material inside. The entire tube was stripped and a large amount of formed tube feed was expressed. The tube was then flushed with sprite and flushed easily. Tube clamped. Patient currently with AC mode ventilation, rate 20, tidal volume 500, FiO2 40% and PEEP 6. Patient is a poor prognosis and apparently was on hospice recently. 07/22/2019. Patient currently with AC mode ventilation, rate 20, tidal volume 500, FiO2 30% and PEEP 6. Patient on sedation with fentanyl drip. Continue Levophed to maintain MAP greater than 65. Patient is a poor prognosis and apparently was on hospice recently. 07/23/2019. Patient currently with AC mode ventilation, rate 20, tidal volume 500, FiO2 30% and PEEP 6. Patient on sedation with fentanyl drip. Continue Levophed to maintain MAP greater than 65. Patient is a poor prognosis and apparently was on hospice recently. 07/24/2019 Patient with Covid-19 infection with pneumonia, acute respiratory failure, intubated on ventilator. No more fever. Continue current management. 07/25/2019 Patient with Covid-19 infection with pneumonia, acute respiratory failure, intubated on ventilator. fever is now resolved. Sedated with propofol 07/26/2019 Patient with covid-19 infection. Still intubated, on vent. 07/27/2019 Patient with Covid-19. he is still critically ill. patient has DNR order. 07/28/2019 Patient with Covid-19 infection. Will repeat labs today. Surgeon consulted for tracheostomy. 07/29/2019 Patient with Covid-19. hypokalemia yesterday, replaced. Will recheck labs in am. 07/30/2019 patient with Covid-19 infection with acute respiratory failure. He is intubated on ventilator. has hypokalemia. replace and recheck BMP in am. patient has UTI, started on Cefepime. 07/31/2019. patient with Covid-19 infection with acute respiratory failure. He is intubated on ventilator. Repeat chest x-ray reveals decreased infiltrates. urology consultation and wound care consult per ID. Follow-up urine and blood culture. Tracheostomy per surgery. 08/01/2019. patient with Covid-19 infection with acute respiratory failure. He is intubated on ventilator. Patient currently with PSV trials. Pressure support 18/PEEP 6. FiO2 30%. Tracheostomy to be placed per surgery wound COVID testing negative. 08/02/2019. Patient with COVID-19 infection and acute respiratory failure on mechanical ventilation. Continue with PSVT trials with pressure support increased to 20. Follow-up serial chest x-ray. Continue Fentanyl infusion and wean sedation as tolerated. Continue daily spontaneous breathing trials. 08/03/2019. Patient with COVID-19 infection and acute respiratory failure on mechanical ventilation. Continue with PSV trials with pressure support increased to 20. Follow-up serial chest x-ray. Continue Fentanyl infusion and wean sedation as tolerated. Continue daily spontaneous breathing trials. 08/04/2019. Patient with COVID-19 infection and acute respiratory failure on mechanical ventilation. Continue with PSV trials 14/6, FiO2 30%. Continue Fentanyl infusion and wean sedation as tolerated. Continue daily spontaneous breathing trials. Tracheostomy placement to be scheduled when COVID testing is negative per surgery. Monitor off antibiotics per ID recommendations 08/05/2019. Patient with COVID-19 infection and acute respiratory failure on mechanical ventilation. Patient currently on AC mode, rate 14, tidal volume 500, FiO2 30% and PEEP of 6. Continue PSV trials as tolerated. Tracheostomy placement to be scheduled when COVID testing is negative per surgery. Monitor off antibiotics per ID recommendations. 08/06/2019. Patient with COVID-19 infection and acute respiratory failure on mechanical ventilation. Patient currently on AC mode, rate 14, tidal volume 500, FiO2 30% and PEEP of 6. Continue PSV trials as tolerated. Tracheostomy placement to be scheduled when COVID testing is negative per surgery. ID restarted antibiotics with cefepime 2 g IV every 8 hours to cover for presumed Pseudomonas pneumonia. Follow-up chest x-ray and blood cultures. Repeat COVID testing 07/28 and positive. Repeat test tomorrow. 08/07/19 Patient with Covid-19, acute respiratory failure. He is still intubated on mechanical ventilator. For tracheostomy when Covid-19 test negative. Still having fever. Leukocytosis worse today, WBC 30.3. For CT Chest, Abdomen. 08/08/19 patient with Covid-19, acute respiratory failure. He is still critically ill, intubated. He is for tracheostomy after Covid-19 test negative. Fever improving. Temp 99.[address] Chest and Abdomen done yesterday pending. 08/09/2019 patient with Covid-19 infection, acute resp failure. Still intubated on ventilator. Fever of 100.3 this morning. I discussed with his Nurse 08/10/2019 Patient with Covid-19 infection. acute respirator failure. patient still in critical condition, intubated. 08/11/2019 Patient with Covid-19 infection, acute resp failure. He is still intubated on vent. 08/12/2019 Patient with Covid-19 infection, acute resp failure. He is still intubated on vent. Discussed with yesterday and gave update. Covid-19 test done 08/09 still positive. 08/13/2019 Patient with Covid-19 infection, acute resp failure. He is still intubated on vent. Discussed with 08/10 and gave update. Covid-19 test done 08/09 still positive. Fever of 101.8 last night 08/14/19: Remains on full ventilatory support. No clinical change 08/14: Remains in full ventilatory support. Replace electrolytes, awaiting Negative covid testing to be able to do Trach and Peg. Per ID Anticipate to d/c on zosyn 4.5 gm IV q 8 hour for 3 weeks until 08/27/2019 to cover for lung abscess and sacral wound infection/osteomyelitis, I am holding off 6 weeks treatment for osteomyelitis as possibility of flap/healing is unlikely. The high probability of a clinically significant, sudden or life threatening deterioration of the [respiratory, CVS, TICKET AGENT] system(s) required my full and direct attention, intervention and personal management. The aggregate critical care time was [34] minutes. This time is in addition to time spent performing reported procedures but includes the following: [x] Data Review and interpretation [x] Patient assessment and monitoring of vital signs [x] Documentation [x] Medication orders and management History Interval history: Patient with Covid-19 infection Still intubated No clinical change Hospitalist Physical - Physical exam Narrative exam: GEN: Not in acute distress, intubated HEENT: Normocephalic, atraumatic, Neck: supple, No JVD Lungs: Bilateral crackles, heart;S1 and S2 reg, no murmurs, rubs or gallop Abd:soft, non tender, non distended, normal bowel sounds,PEG tube Ext: No edema, no clubbing, no cyanosis, Neuro: Intubated, on ventilator,sedated - Constitutional Vitals: Temp Pulse Resp BP Pulse Ox 98.9 F 118 H 34 H 159/89 94 08/15/19 16:00 08/15/19 15:48 08/15/19 15:48 08/15/19 15:48 08/15/19 15:48 General appearance: Present: other (Orally intubated on vent) HEART Score - HEART Score Troponin: Troponin T 0.013 ng/mL (0.00-0.029) 07/04/19 07:05 Results - Labs CBC & Chem 7: 08/16/19 05:00 08/16/19 05:00 Labs: Laboratory Last Values WBC 11.6 K/mm3 (4.5-11.0) H 08/15/19 06:10 RBC 2.68 M/mm3 (3.65-5.03) L 08/15/19 06:10 Hgb 7.7 gm/dl (11.8-15.2) L 08/15/19 06:10 Hct 23.3 % (35.5-45.6) L 08/15/19 06:10 MCV 87 fl (84-94) 08/15/19 06:10 MCH 29 pg (28-32) 08/15/19 06:10 MCHC 33 % (32-34) 08/15/19 06:10 RDW 19.2 % (13.2-15.2) H 08/15/19 06:10 Plt Count 885 K/mm3 (140-440) H 08/15/19 06:10 Lymph % (Auto) 4.9 % (13.4-35.0) L 07/19/19 08:45 [place] % (Auto) 12.2 % (0.0-7.3) H 07/22/19 05:38 Eos % (Auto) 1.0 % (0.0-4.3) 07/19/19 08:45 Baso % (Auto) 0.5 % (0.0-1.8) 07/19/19 08:45 Lymph # 0.8 K/mm3 (1.2-5.4) L 07/19/19 08:45 [place] # 1.5 K/mm3 (0.0-0.8) H 07/22/19 05:38 Eos # 0.2 K/mm3 (0.0-0.4) 07/19/19 08:45 Baso # 0.1 K/mm3 (0.0-0.1) 07/19/19 08:45 Add Manual Diff Complete 08/08/19 04:41 Total Counted 100 08/08/19 04:41 Seg Neutrophils % 72.8 % (40.0-70.0) H 07/22/19 05:38 Seg Neuts % (Manual) 90.0 % (40.0-70.0) H 08/08/19 04:41 Band Neutrophils % 0 % 08/08/19 04:41 Lymphocytes % (Manual) 3.0 % (13.4-35.0) L 08/08/19 04:41 Reactive Lymphs % (Man) 0 % 08/08/19 04:41 Monocytes % (Manual) 6.0 % (0.0-7.3) 08/08/19 04:41 Eosinophils % (Manual) 1.0 % (0.0-4.3) 08/08/19 04:41 Basophils % (Manual) 0 % (0.0-1.8) 08/08/19 04:41 Metamyelocytes % 0 % 08/08/19 04:41 Myelocytes % 0 % 08/08/19 04:41 Promyelocytes % 0 % 08/08/19 04:41 Blast Cells % 0 % 08/08/19 04:41 Nucleated RBC % Not Reportable 08/08/19 04:41 Seg Neutrophils # 9.2 K/mm3 (1.8-7.7) H 07/22/19 05:38 Seg Neutrophils # Man 19.9 K/mm3 (1.8-7.7) H 08/08/19 04:41 Band Neutrophils # 0.0 K/mm3 08/08/19 04:41 Lymphocytes # (Manual) 0.7 K/mm3 (1.2-5.4) L 08/08/19 04:41 Abs React Lymphs (Man) 0.0 K/mm3 08/08/19 04:41 Monocytes # (Manual) 1.3 K/mm3 (0.0-0.8) H 08/08/19 04:41 Eosinophils # (Manual) 0.2 K/mm3 (0.0-0.4) 08/08/19 04:41 Basophils # (Manual) 0.0 K/mm3 (0.0-0.1) 08/08/19 04:41 Metamyelocytes # 0.0 K/mm3 08/08/19 04:41 Myelocytes # 0.0 K/mm3 08/08/19 04:41 Promyelocytes # 0.0 K/mm3 08/08/19 04:41 Blast Cells # 0.0 K/mm3 08/08/19 04:41 WBC Morphology Not Reportable 08/08/19 04:41 Hypersegmented Neuts Not Reportable 08/08/19 04:41 Hyposegmented Neuts Not Reportable 08/08/19 04:41 Hypogranular Neuts Not Reportable 08/08/19 04:41 Smudge Cells Not Reportable 08/08/19 04:41 Toxic Granulation Not Reportable 08/08/19 04:41 Toxic Vacuolation Not Reportable 08/08/19 04:41 Dohle Bodies Not Reportable 08/08/19 04:41 Pelger-Huet Anomaly Not Reportable 08/08/19 04:41 [place]y Rods Not Reportable 08/08/19 04:41 Platelet Estimate Consistent w auto 08/08/19 04:41 Clumped Platelets Not Reportable 08/08/19 04:41 Plt Clumps, EDTA Not Reportable 08/08/19 04:41 Large Platelets Not Reportable 08/08/19 04:41 Giant Platelets Not Reportable 08/08/19 04:41 Platelet Satelliting Not Reportable 08/08/19 04:41 Plt Morphology Comment Not Reportable 08/08/19 04:41 RBC Morphology Not Reportable 08/08/19 04:41 Dimorphic RBCs Not Reportable 08/08/19 04:41 Polychromasia Not Reportable 08/08/19 04:41 Hypochromasia Few 08/08/19 04:41 Poikilocytosis Not Reportable 08/08/19 04:41 Anisocytosis Rare 08/08/19 04:41 Microcytosis Rare 08/08/19 04:41 Macrocytosis Not Reportable 08/08/19 04:41 Spherocytes Not Reportable 08/08/19 04:41 Pappenheimer Bodies Not Reportable 08/08/19 04:41 Sickle Cells Not Reportable 08/08/19 04:41 Target Cells Not Reportable 08/08/19 04:41 Tear Drop Cells Not Reportable 08/08/19 04:41 Ovalocytes Rare 08/08/19 04:41 Stomatocytes Few 08/01/19 04:57 Helmet Cells Not Reportable 08/08/19 04:41 [place] Bodies Not Reportable 08/08/19 04:41 [place] Rings Not Reportable 08/08/19 04:41 [place] Cells Not Reportable 08/08/19 04:41 Bite Cells Not Reportable 08/08/19 04:41 Crenated Cell Not Reportable 08/08/19 04:41 Elliptocytes Not Reportable 08/08/19 04:41 Acanthocytes (Spur) Not Reportable 08/08/19 04:41 Rouleaux Not Reportable 08/08/19 04:41 Hemoglobin C Crystals Not Reportable 08/08/19 04:41 Schistocytes Rare 08/08/19 04:41 Malaria parasites Not Reportable 08/08/19 04:41 Jeevan Bodies Not Reportable 08/08/19 04:41 Hem Pathologist Commnt No 08/08/19 04:41 PT 16.0 Sec. (12.2-14.9) H 07/03/19 22:20 INR 1.26 (0.87-1.13) H 07/03/19 22:20 D-Dimer 1808.06 ng/mlDDU (0-234) H 08/07/19 10:24 ABG pH 7.408 pH Units (7.350-7.450) 08/13/19 17:10 ABG pCO2 46.2 mm Hg 08/13/19 17:10 ABG pO2 105.0 mm Hg (80.0-90.0) H 08/13/19 17:10 ABG HCO3 28.5 mmol/L (20.0-26.0) H 08/13/19 17:10 ABG O2 Saturation 97.8 % (95.0-99.0) 08/13/19 17:10 ABG O2 Content 10.8 (0.0-44) 08/13/19 17:10 ABG Base Excess 3.5 mmol/L (-2.0-3.0) H 08/13/19 17:10 ABG Hemoglobin 7.8 gm/dl (14.0-18.0) L 08/13/19 17:10 ABG Carboxyhemoglobin 1.6 % (0.0-5.0) 08/13/19 17:10 ABG Methemoglobin 0.4 % (0.0-1.5) 08/13/19 17:10 Oxyhemoglobin 95.8 % (95.0-99.0) 08/13/19 17:10 FiO2 30 % 08/13/19 17:10 Sodium 138 mmol/L (137-145) 08/15/19 06:10 Potassium 3.7 mmol/L (3.6-5.0) 08/15/19 06:10 Chloride 100.8 mmol/L (98-107) 08/15/19 06:10 Carbon Dioxide 29 mmol/L (22-30) 08/15/19 06:10 Anion Gap 12 mmol/L 08/15/19 06:10 BUN 6 mg/dL (9-20) L 08/15/19 06:10 Creatinine 0.3 mg/dL (0.8-1.5) L 08/15/19 06:10 Estimated GFR > 60 ml/min 08/15/19 06:10 BUN/Creatinine Ratio 20 % 08/15/19 06:10 Glucose 107 mg/dL (75-100) H 08/15/19 06:10 POC Glucose 84 (70-105) 08/15/19 17:43 Osmolality 268 Mosm/kg 07/05/19 04:00 Lactic Acid 3.30 mmol/L (0.7-2.0) H* 07/04/19 07:05 Uric Acid 7.2 mg/dL (3.5-7.6) 07/05/19 04:00 Calcium 8.2 mg/dL (8.4-10.2) L 08/15/19 06:10 Phosphorus 3.60 mg/dL (2.5-4.5) 07/05/19 04:00 Magnesium 1.50 mg/dL (1.7-2.3) L 08/15/19 06:10 Iron 9 ug/dL (49-181) L 07/04/19 07:05 TIBC 97 mcg/dL (250-450) L 07/04/19 07:05 Ferritin 360.4 ng/mL (13.0-400.0) 08/07/19 10:24 Total Bilirubin 0.20 mg/dL (0.1-1.2) 07/04/19 07:05 AST 73 units/L (5-40) H 07/04/19 07:05 ALT 91 units/L (7-56) H 07/04/19 07:05 Alkaline Phosphatase 114 units/L (35-129) 07/04/19 07:05 Ammonia 35.0 umol/L (25-60) 07/03/19 23:58 Lactate Dehydrogenase 144 units/L (91-180) 08/07/19 10:24 Troponin T 0.013 ng/mL (0.00-0.029) 07/04/19 07:05 C-Reactive Protein 11.10 mg/dL (0.00-1.30) H 08/07/19 10:24 Total Protein 5.5 g/dL (6.3-8.2) L 07/04/19 07:05 Albumin 1.6 g/dL (3.9-5) L 07/31/19 04:42 Albumin/Globulin Ratio 0.6 % 07/04/19 07:05 Prealbumin 0.037 g/L (0.200-0.400) L 07/31/19 04:42 Triglycerides 33 mg/dL (2-149) 07/03/19 19:57 Cholesterol 47 mg/dL (50-199) L 07/03/19 19:57 LDL Cholesterol Direct 25 mg/dL (50-130) L 07/03/19 19:57 HDL Cholesterol 20 mg/dL (40-59) L 07/03/19 19:57 Cholesterol/HDL Ratio 2.35 % 07/03/19 19:57 Procalcitonin 0.96 ng/mL (<0.15) 08/07/19 10:24 TSH 2.170 mlU/mL (0.270-4.200) 07/03/19 22:20 Total Cortisol 28.0 mcg/dL () 07/05/19 10:11 Urine Color Yellow (Yellow) 07/29/19 11:57 Urine Turbidity Clear (Clear) 07/29/19 11:57 Urine pH 7.0 (5.0-7.0) 07/29/19 11:57 Ur Specific [place] 1.012 (1.003-1.030) 07/29/19 11:57 Urine Protein <15 mg/dl mg/dL (Negative) 07/29/19 11:57 Urine Glucose (UA) Neg mg/dL (Negative) 07/29/19 11:57 Urine Ketones Neg mg/dL (Negative) 07/29/19 11:57 Urine Blood Sm (Negative) 07/29/19 11:57 Urine Nitrite Neg (Negative) 07/29/19 11:57 Urine Bilirubin Neg (Negative) 07/29/19 11:57 Urine Urobilinogen 4.0 mg/dL (<2.0) 07/29/19 11:57 Ur Leukocyte Esterase Mod (Negative) 07/29/19 11:57 Urine WBC (Auto) 63.0 /HPF (0.0-6.0) H 07/29/19 11:57 Urine RBC (Auto) 14.0 /HPF (0.0-6.0) 07/29/19 11:57 U Epithel Cells (Auto) < 1.0 /HPF (0-13.0) 07/29/19 11:57 Urine Bacteria (Auto) 1+ /HPF (Negative) 07/29/19 11:57 Urine WBC Clumps Few /HPF 07/03/19 21:13 Urine Mucus Few /HPF 07/03/19 21:13 Urine Osmolality 293 Mosm/kg 07/05/19 08:15 Vancomycin Trough 23.2 ug/mL (5.0-20.0) H 07/05/19 17:54 Urine Opiates Screen Presumptive negative 07/03/19 21:13 Urine Methadone Screen Presumptive negative 07/03/19 21:13 Ur Barbiturates Screen Presumptive negative 07/03/19 21:13 Ur Phencyclidine Scrn Presumptive negative 07/03/19 21:13 Ur Amphetamines Screen Presumptive negative 07/03/19 21:13 U Benzodiazepines Scrn Presumptive negative 07/03/19 21:13 Urine Cocaine Screen Presumptive negative 07/03/19 21:13 U Marijuana (THC) Screen Presumptive negative 07/03/19 21:13 Drugs of Abuse Note Disclamer 07/03/19 21:13 Plasma/Serum Alcohol < 0.01 % (0-0.07) 07/03/19 23:58 Coronavirus (PCR) Positive (Negative) A 08/10/19 Unknown Hepatitis A IgM Ab Non-reactive (NonReactive) 08/07/19 10:24 Hep Bs Antigen Non-reactive (Negative) 08/07/19 10:24 Hep B Core IgM Ab Non-reactive (NonReactive) 08/07/19 10:24 Hepatitis C Antibody Non-reactive (NonReactive) 08/07/19 10:24 Blood Type B POSITIVE 08/09/19 17:59 Antibody Screen Negative 08/09/19 17:59 Crossmatch See Detail 08/09/19 17:59 Wright/IV: Voiding Method Indwelling Catheter IV Catheter Type [Left Triple Lumen Cath Internal Jugular] IV Catheter Type [Left INT / Saline Lock Antecubital] IV Catheter Type [Left Forearm Peripheral IV ] IV Catheter Type [Left Upper Mid-line arm] IV Catheter Type [Right INT / Saline Lock Forearm] IV Catheter Type [Right Hand] INT / Saline Lock IV Catheter Type [Right CVL Femoral] IV Catheter Type [Left INT / Saline Lock External Jugular] Active Medications - Current Medications Current Medications: Generic Name Dose Route Start Last Admin Trade Name Freq PRN Reason Stop Dose Admin Acetaminophen 650 mg 07/04/19 04:24 08/05/19 17:40 Tylenol [place] 650 mg Q6H PRN Administration Pain MILD(1-3)/Fever >100.5/MURO Acetaminophen 650 mg 07/10/19 04:00 08/12/19 21:05 Tylenol PO 650 mg Q6HR PRN Administration Pain, Mild (1-3) FEVER Lipase/Protease/Amylase 1 each 07/04/19 10:04 08/11/19 06:03 Pancreazcon [place] 10,500 Unit FEEDTUBE 1 each PRN PRN Administration For Clogged Feeding Tube Aspirin 81 mg 07/05/19 10:00 08/15/19 10:16 Baby Aspirin PO 81 mg QDAY TAMMIE Administration Dextrose 50 ml 07/04/19 06:54 D50w (25gm) Syringe IV Q30MIN PRN Hypoglycemia Protocol Docusate Sodium 100 mg 08/14/19 14:00 Colace PO BID PRN CONSTIPATION Enoxaparin Sodium 40 mg 07/24/19 10:00 08/15/19 10:17 Enoxaparin SUB-Q 40 mg QDAY@1000 TAMMIE Administration Famotidine 20 mg 07/23/19 22:00 08/15/19 10:16 Pepcid PO 20 mg BID TAMMIE Administration Fentanyl 50 mcg 07/21/19 15:18 08/09/19 17:44 Sublimaze IV 50 mcg Q10MIN PRN Administration ANALGESIA Fentanyl 25 mcg 08/03/19 11:00 08/15/19 11:52 Duragesic TD 25 mcg Q3D TAMMIE Administration Folic Acid 1 mg 07/05/19 10:00 08/15/19 10:17 Folvite PO 1 mg QDAY TAMMIE Administration Hydrophilic Ointment 1 applic 07/03/19 19:56 07/05/19 17:42 Vaseline Lip Therapy TP 1 applic Q2HR PRN Administration Dry Lips Norepinephrine 4 mg in 250 mls @ 7.5 mls/hr 07/03/19 23:00 07/20/19 01:00 Levophed Drip 4 Mg/Ns 250 Ml IV Infused TITR TAMMIE Titration Protocol 2 MCG/MIN Piperacillin Sod/Tazobactam Sod 4.5 gm in 100 mls @ 200 mls/hr 08/06/19 12:00 08/15/19 11:52 Zosyn/Ns 4.5gm/100ml IV 08/27/19 11:59 200 mls/hr Q6HR TAMMIE Administration Protocol Potassium Chloride 10 meq in 100 mls @ 100 mls/hr 08/15/19 19:00 Kcl 10meq/100ml IV 08/15/19 22:59 Q1H [facility] Insulin Human Lispro 0 unit 07/07/19 12:00 08/15/19 06:16 Humalog SUB-Q Not Given Q6HR [facility] Protocol Levetiracetam 750 mg 07/06/19 11:00 08/15/19 10:17 Keppra FEEDTUBE 750 mg Q12HR TAMMIE Administration Metoprolol Tartrate 5 mg 07/12/19 15:08 08/11/19 14:47 Metoprolol IV 5 mg Q6HR PRN Administration Tachyarrhythmias Multi-Ingred Cream/Lotion/Oil/Oint 1 applic 07/03/19 19:56 07/05/19 13:19 Artificial Tears Ophth Oint OU 1 applic Q4HR PRN Administration Dry Eye(s) Naloxone HCl 0.1 mg 07/04/19 04:24 Naloxone IV Q2MIN PRN Res Rate </= 8 or 02 SAT < 92% Oxycodone/Acetaminophen 1 tab 07/19/19 14:17 08/11/19 13:06 Percocet 5/325 PO 1 tab Q4H PRN Administration Pain, Moderate (4-6) Scopolamine 1 each 07/10/19 11:00 08/15/19 10:17 Transderm-Scop TD 1 each Q3D TAMMIE Administration Simple Syrup 15 ml 07/04/19 10:04 07/10/19 21:56 Simple Syrup FEEDTUBE 15 ml PRN PRN Administration Hypoglycemia Simple Syrup 30 ml 07/04/19 10:04 Simple Syrup FEEDTUBE PRN PRN Hypoglycemia Sodium Bicarbonate 325 mg 07/04/19 10:04 07/20/19 10:20 Sodium Bicarbonate FEEDTUBE 325 mg PRN PRN Administration For Clogged Feeding Tube Sodium Chloride 10 ml 07/04/19 10:00 08/15/19 10:17 Sodium Chloride Flush Syringe 10 Ml IV 10 ml BID TAMMIE Administration Sodium Chloride 10 ml 07/04/19 04:24 Sodium Chloride Flush Syringe 10 Ml IV PRN PRN LINE FLUSH Sodium Hypochlorite 1 applic 07/10/19 14:00 08/14/19 21:33 Dakin's Half Strength TP 1 appful BID TAMMIE Administration Nutrition/Malnutrition Assess - Dietary Evaluation Nutrition/Malnutrition Findings: Nutrition Notes Start: 07/04/19 09:17 Freq: Status: Active Protocol: Document 08/15/19 08:14 LP (Rec: 08/15/19 08:16 LP [id number]) Nutrition Notes Initial or Follow up Reassessment Current Diagnosis Acute Kidney Injury,COPD, Decubitus(Pressure Ulcer), Diabetes,Hypertension Other Pertinent Diagnosis COVID-19 (+), pneu, seizures, schizophrenia, Buttock and R foot PU, Current Diet Osmolite 1.5 at 55ml/hr Labs/Tests Reviewed Pertinent Medications Reviewed Height 5 ft 11 in Weight 78.7 kg [place] Body Weight (kg) 78.18 BMI 24.2 Weight Status Overweight Subjective/Other Information Pt continues tolerating TF at goal rate. Percent of energy/protein needs met: 97%/75% Burn Absent Trauma Absent Current % PO Negligible Minimum of two criteria No physical signs of malnutrition #2 Nutrition Diagnosis Increased nutrient needs ( specify in comment below) Diagnosis Progress(for reassessment Continues documentation) #1 Nutrition Diagnosis Inadequate oral intake Diagnosis Progress(for reassessment Continues documentation) Is patient on ventilator? Yes Is Patient Ambulatory and/or Out of Bed No REE-([facility]-confined to bed) 2261.460 Calculation Used for Recommendations [facility] Additional Notes Protein: 110-184 (1.2-2g/kg) Fluid: 1 ml/kcal or per MD Nutrition Intervention Change Diet Order: Continue TF Nutrition Support: Osmolite 1.5 at 55ml/hr Flush 150ml q4h Kcal 1,980 Protein (gm) 83 Fluid (mL) 1,006 Goal #1 TF tolerance Goal #2 TF to meet at least 75% of energy and protein needs Anticipated Discharge Needs: unable to determine at this time Follow-Up By: 08/22/19 Additional Comments Follow for stable TF
[2019-08-15] MEDS: POTASSIUM CHLORIDE 10 MEQ 10 MEQ/100 ML BAG IV SCH ×2 (21:18→22:57)
[2019-08-15] MEDS: SODIUM HYPOCHLORITE, DAKIN'S 1/2 STRENGTH (0.25%) 473 ML TOPICAL SOLN TP SCH (21:19)
[2019-08-16] MEDS: INSULIN LISPRO 100 UNIT/ML SUB-Q SCH ×4 (00:25→17:32)
[2019-08-16] MEDS: POTASSIUM CHLORIDE 10 MEQ 10 MEQ/100 ML BAG IV SCH ×3 (00:32→01:53)
[2019-08-16] MEDS: PIPERACIL/TAZOBACTA 4.5/NS 100 4.5 GM/100 ML VIAL IV SCH ×3 (00:33→14:58)
[2019-08-16] MEDS: SODIUM HYPOCHLORITE, DAKIN'S 1/2 STRENGTH (0.25%) 473 ML TOPICAL SOLN TP SCH ×2 (05:00→09:30)
[2019-08-16 06:45] LABS: Hematocrit 24.9 % (35.5-45.6); Hemoglobin 8.1 gm/dl (11.8-15.2); Mean Corpuscular HGB Conc 32 % (32-34); Mean Corpuscular Volume 87 fl (84-94); Platelet Count 962 K/mm3 (140-440); Red Blood Count 2.87 M/mm3 (3.65-5.03); Red Cell Distribution Width 18.7 % (13.2-15.2)
[2019-08-16 07:08] LABS: Alanine Aminotransferase 8 units/L (7-56); Albumin 2.1 g/dL (3.9-5); BUN/Creatinine Ratio 20; Blood Urea Nitrogen 6 mg/dL (9-20); Calcium 8.2 mg/dL (8.4-10.2); Hemolysis Index 4
--- NOTE | 2019-08-16 07:15 | Progress Note ---
Assessment and Plan S/p Cardiopulmonary arrest with ROSC Severe Sepsis with septic shock. Acute hypoxemic respiratory failure on MVS COVID-19 positive with elevated markers Bilateral pneumonia Elevated LFTs. Oropharyngeal dysphagia s/p PEG Acute kidney injury Decubitus ulcers-unstageable Moderate protein calorie malnutriton Icmuiupt-cf-cquief metabolic acidosis Leukocytosis Thrombocytosis-worse Microcytic anemia Continue with PSV as tolerated, full support at night Will continue to assess on a daily basis suitability for liberation from MVS while awaiting COVID negative testing. Repeat COVID testing remains positive ( 08/09/2019). Repeat testing once negative reconsult surgery for trach and PEG placement Continue with NGT feeding with aspiration precautions Complete course of antibiotics per ID- currently on Zosyn Supportive transfusions to keep HgB >7g/dL Continue all care as documented -Continue to coordinate sedation interruption( RN) and SBT( RT) today to optimize chances of success with weaning trial -ABG, CXR prn - continue airborne, droplet and contact isolation for COVID-19 - continue wound care per WCT - sedation prn for target RASS 0 to -1 - continue to wean supplemental oxygen for target O2 sat's > 90% - Daily SAT's and SBT assessment as tolerated - VAP bundle addressed - continue lung protective strategies - continue bronchodilators with pulmonary hygiene per RT - wean per pulmonary driven protocols otherwise - accuchecks with glycemic control per SSI (While critically ill target blood glucose of 140-180 mg/dL; avoid hypoglycemia) - continue to avoid benzodiazepines, reduce the possibility of delirium - prn analgesia per CPOT score - Maintenance of sleep-wake cycle, avoid delirium - continue enteral nutritional support at goal rate as tolerated - VTE prophylaxis-Enoxaparin -Stress ulcer prophylaxis- Famotidine - PT/OT/ROM exercises - continue mobility protocol, off loading and skin assessment for pressure ulcer prevention - Monitor hemodynamics closely -Wright catheter in this critically ill patient with unstageable sacral decubitus ulcer - continue other care per attending / other consultants - discharge planning ongoing concurrently .... Re-evaluate in am & prn CONDITION: CRITICAL PROGNOSIS: GUARDED CODE STATUS: DNAR Called his family to discuss goals of care, wants us to continue to treat aggressively at this time. The high probability of a clinically significant, sudden or life-threatening deterioration of the [respiratory ,cardiovascular, neurology] system(s) required my full and direct attention, intervention and personal management. The aggregate critical care time was [31] minutes without overlap. Time includes spent on; [x] Data Review and interpretation [x] Patient assessment and monitoring of vital signs [x] Documentation [x] Medication orders and management Subjective Date of service: 08/16/19 Principal diagnosis: Bilateral pneumonia, severe sepsis with septic shock, encephalopathy Interval history: The patient is a 69-year-old male with CVA, hypertension, dementia, schizophrenia, alcohol use disorder was admitted to the emergency room after being brought in by EMS with progressive shortness of breath and unresponsiveness. He was noted to have agonal breathing and a faint pulse requiring CPR. Patient was intubated and brought to the hospital. It seems, patient was on home hospice. Currently, remains critically ill, intubated, on mechanical ventilation. His COVID test resulted positive. Patient is seen today for: s/p cardiopulmonary arrest with ROSC; Ac hypoxemic Resp failure on MVS; Severe sepsis with Shock; Bilateral Pneumonia; POSITIVE coronavirus-19 infection. Seen and examined at bedside; 24hour events reviewed; nursing and respiratory care staff consulted; no adverse overnight events reported to me; resting in bed.No fevers; Remains COVID positive On MVS , tolerating daily PSV trials at this time; on fentanyl at 1mcg, off norepinephrine Tolerating tube feedings, Mental status changes persist, will spontaneously open eyes Objective Vital Signs - 12hr 08/15/19 08/15/19 08/15/19 19:29 20:00 21:00 Temperature 99.8 F H Pulse Rate 98 H 92 H 96 H Pulse Rate [ From Monitor] Pulse Rate [ Right Dorsalis Pedis] Respiratory 23 15 Rate Blood Pressure 145/75 146/74 136/69 O2 Sat by Pulse 100 100 100 Oximetry 08/15/19 08/15/19 08/15/19 22:00 22:55 23:01 Temperature Pulse Rate 94 H 118 H 118 H Pulse Rate [ 111 H From Monitor] Pulse Rate [ 111 H Right Dorsalis Pedis] Respiratory 21 20 20 Rate Blood Pressure 138/72 174/102 O2 Sat by Pulse 100 100 100 Oximetry 08/15/19 08/15/19 08/15/19 23:03 23:20 23:50 Temperature Pulse Rate 95 H 101 H Pulse Rate [ 118 H From Monitor] Pulse Rate [ 118 H Right Dorsalis Pedis] Respiratory 20 20 Rate Blood Pressure 174/102 160/85 O2 Sat by Pulse 100 97 97 Oximetry 08/16/19 08/16/19 08/16/19 00:00 01:00 02:00 Temperature 100.7 F H Pulse Rate 119 H 102 H 98 H Pulse Rate [ From Monitor] Pulse Rate [ Right Dorsalis Pedis] Respiratory 14 27 H 20 Rate Blood Pressure 155/77 150/85 153/82 O2 Sat by Pulse 98 100 99 Oximetry 08/16/19 08/16/19 08/16/19 02:22 03:00 03:12 Temperature Pulse Rate 98 H 84 90 Pulse Rate [ 98 H From Monitor] Pulse Rate [ Right Dorsalis Pedis] Respiratory 20 27 H Rate Blood Pressure 142/79 142/79 O2 Sat by Pulse 97 100 99 Oximetry 08/16/19 08/16/19 08/16/19 03:15 04:00 05:00 Temperature 100.7 F H Pulse Rate 103 H 103 H 106 H Pulse Rate [ 107 H 94 H From Monitor] Pulse Rate [ Right Dorsalis Pedis] Respiratory 22 21 19 Rate Blood Pressure 150/93 161/91 O2 Sat by Pulse 97 99 98 Oximetry 08/16/19 06:00 Temperature Pulse Rate 99 H Pulse Rate [ From Monitor] Pulse Rate [ Right Dorsalis Pedis] Respiratory 14 Rate Blood Pressure 161/94 O2 Sat by Pulse 100 Oximetry Constitutional: appears uncomfortable, other (eelderly and chronically ill looking AAM, normocep[krystina;ic with mildly increased respiratory effort at rest) Eyes: non-icteric ENT: oropharynx moist, other (ETT 24 cm Pawan) Neck: supple, no lymphadenopathy, no JVD Effort: very labored Ascultation: Bilateral: diminished breath sounds, rhonchi Percussion: Bilateral: not dull Cardiovascular: regular rate and rhythm Gastrointestinal: normoactive bowel sounds, soft, non-tender, non-distended, other (+ PEG tube with mild TF leakage) Integumentary: decubitus ulcer (sacral) Extremities: no cyanosis, no edema, pink and warm, pulses normal Neurologic: pupils equal and round, unable to assess Psychiatric: other (Unable to assess re: AMS) CBC and BMP: 08/20/19 Unknown 08/20/19 Unknown ABG, PT/INR, D-dimer: ABG ABG pH 7.408 pH Units (7.350-7.450) 08/13/19 17:10 ABG pCO2 46.2 mm Hg 08/13/19 17:10 ABG pO2 105.0 mm Hg (80.0-90.0) H 08/13/19 17:10 ABG O2 Saturation 97.8 % (95.0-99.0) 08/13/19 17:10 PT/INR, D-dimer PT 16.0 Sec. (12.2-14.9) H 07/03/19 22:20 INR 1.26 (0.87-1.13) H 07/03/19 22:20 D-Dimer 1808.06 ng/mlDDU (0-234) H 08/07/19 10:24 Abnormal lab findings: Abnormal Labs 07/03/19 07/03/19 07/03/19 19:57 21:10 21:13 WBC RBC Hgb Hct MCV MCH MCHC RDW Plt Count Lymph % (Auto) [place] % (Auto) Lymph # [place] # Baso # Seg Neutrophils % Seg Neuts % (Manual) Lymphocytes % (Manual) Monocytes % (Manual) Nucleated RBC % Seg Neutrophils # Seg Neutrophils # Man Lymphocytes # (Manual) Monocytes # (Manual) Basophils # (Manual) PT INR D-Dimer ABG pH 7.238 L ABG pO2 210.8 H ABG HCO3 15.4 L ABG O2 Saturation 99.2 H ABG Base Excess -11.1 L ABG Hemoglobin 8.0 L Oxyhemoglobin Sodium 124 L Potassium Chloride 92.9 L Carbon Dioxide 10 L BUN 23 H Creatinine 0.5 L Glucose 118 H POC Glucose Lactic Acid Calcium 7.0 L Magnesium Iron TIBC Ferritin AST 70 H ALT 88 H Lactate Dehydrogenase Troponin T 0.032 H C-Reactive Protein Total Protein 5.0 L Albumin 1.8 L Prealbumin Cholesterol 47 L LDL Cholesterol Direct 25 L HDL Cholesterol 20 L Urine WBC (Auto) 12.0 H Vancomycin Trough Coronavirus (PCR) Crossmatch 07/03/19 07/03/19 07/03/19 22:20 22:20 22:20 WBC 30.5 H RBC 2.96 L Hgb 7.7 L Hct 23.9 L MCV 81 L MCH 26 L MCHC RDW 18.6 H Plt Count 459 H Lymph % (Auto) [place] % (Auto) Lymph # [place] # Baso # Seg Neutrophils % Seg Neuts % (Manual) 93.0 H Lymphocytes % (Manual) 0.5 L Monocytes % (Manual) Nucleated RBC % Seg Neutrophils # Seg Neutrophils # Man 28.4 H Lymphocytes # (Manual) 0.2 L Monocytes # (Manual) Basophils # (Manual) PT 16.0 H INR 1.26 H D-Dimer ABG pH ABG pO2 ABG HCO3 ABG O2 Saturation ABG Base Excess ABG Hemoglobin Oxyhemoglobin Sodium Potassium Chloride Carbon Dioxide BUN Creatinine Glucose POC Glucose Lactic Acid 6.90 H* Calcium Magnesium Iron TIBC Ferritin AST ALT Lactate Dehydrogenase Troponin T C-Reactive Protein Total Protein Albumin Prealbumin Cholesterol LDL Cholesterol Direct HDL Cholesterol Urine WBC (Auto) Vancomycin Trough Coronavirus (PCR) Crossmatch 07/03/19 07/04/19 07/04/19 23:58 05:15 07:05 WBC 17.1 H RBC 3.22 L Hgb 8.3 L Hct 25.4 L MCV 79 L MCH 26 L MCHC RDW 18.6 H Plt Count Lymph % (Auto) [place] % (Auto) Lymph # [place] # Baso # Seg Neutrophils % Seg Neuts % (Manual) 74.0 H Lymphocytes % (Manual) 0 L Monocytes % (Manual) Nucleated RBC % Seg Neutrophils # Seg Neutrophils # Man 12.7 H Lymphocytes # (Manual) 0.0 L Monocytes # (Manual) Basophils # (Manual) PT INR D-Dimer ABG pH 7.310 L ABG pO2 73.2 L ABG HCO3 17.8 L ABG O2 Saturation 93.8 L ABG Base Excess -7.7 L ABG Hemoglobin 9.6 L Oxyhemoglobin 92.3 L Sodium Potassium Chloride Carbon Dioxide BUN Creatinine Glucose POC Glucose Lactic Acid 7.10 H* Calcium Magnesium Iron TIBC Ferritin AST ALT Lactate Dehydrogenase Troponin T C-Reactive Protein Total Protein Albumin Prealbumin Cholesterol LDL Cholesterol Direct HDL Cholesterol Urine WBC (Auto) Vancomycin Trough Coronavirus (PCR) Crossmatch 07/04/19 07/04/19 07/04/19 07:05 07:05 07:05 WBC RBC Hgb Hct MCV MCH MCHC RDW Plt Count Lymph % (Auto) [place] % (Auto) Lymph # [place] # Baso # Seg Neutrophils % Seg Neuts % (Manual) Lymphocytes % (Manual) Monocytes % (Manual) Nucleated RBC % Seg Neutrophils # Seg Neutrophils # Man Lymphocytes # (Manual) Monocytes # (Manual) Basophils # (Manual) PT INR D-Dimer ABG pH ABG pO2 ABG HCO3 ABG O2 Saturation ABG Base Excess ABG Hemoglobin Oxyhemoglobin Sodium 120 L Potassium 5.1 H Chloride 90.0 L Carbon Dioxide 14 L BUN 26 H Creatinine 0.5 L Glucose POC Glucose Lactic Acid 3.30 H* Calcium 8.0 L Magnesium Iron 9 L TIBC 97 L Ferritin AST 73 H ALT 91 H Lactate Dehydrogenase Troponin T C-Reactive Protein Total Protein 5.5 L Albumin 2.0 L Prealbumin Cholesterol LDL Cholesterol Direct HDL Cholesterol Urine WBC (Auto) Vancomycin Trough Coronavirus (PCR) Crossmatch 07/04/19 07/04/19 07/04/19 09:39 09:39 09:39 WBC RBC Hgb Hct MCV MCH MCHC RDW Plt Count Lymph % (Auto) [place] % (Auto) Lymph # [place] # Baso # Seg Neutrophils % Seg Neuts % (Manual) Lymphocytes % (Manual) Monocytes % (Manual) Nucleated RBC % Seg Neutrophils # Seg Neutrophils # Man Lymphocytes # (Manual) Monocytes # (Manual) Basophils # (Manual) PT INR D-Dimer 1419.14 H ABG pH ABG pO2 ABG HCO3 ABG O2 Saturation ABG Base Excess ABG Hemoglobin Oxyhemoglobin Sodium Potassium Chloride Carbon Dioxide BUN Creatinine Glucose POC Glucose Lactic Acid Calcium Magnesium Iron TIBC Ferritin 1719.0 H AST ALT Lactate Dehydrogenase 234 H Troponin T C-Reactive Protein 15.50 H Total Protein Albumin Prealbumin Cholesterol LDL Cholesterol Direct HDL Cholesterol Urine WBC (Auto) Vancomycin Trough Coronavirus (PCR) Crossmatch 07/04/19 07/04/19 07/04/19 10:09 18:08 18:28 WBC RBC Hgb Hct MCV MCH MCHC RDW Plt Count Lymph % (Auto) [place] % (Auto) Lymph # [place] # Baso # Seg Neutrophils % Seg Neuts % (Manual) Lymphocytes % (Manual) Monocytes % (Manual) Nucleated RBC % Seg Neutrophils # Seg Neutrophils # Man Lymphocytes # (Manual) Monocytes # (Manual) Basophils # (Manual) PT INR D-Dimer ABG pH ABG pO2 ABG HCO3 ABG O2 Saturation ABG Base Excess ABG Hemoglobin Oxyhemoglobin Sodium 117 L* Potassium 5.6 H Chloride 90.3 L Carbon Dioxide 16 L BUN 28 H Creatinine 0.5 L Glucose 58 L POC Glucose 65 L Lactic Acid Calcium 8.2 L Magnesium Iron TIBC Ferritin AST ALT Lactate Dehydrogenase Troponin T C-Reactive Protein Total Protein Albumin Prealbumin Cholesterol LDL Cholesterol Direct HDL Cholesterol Urine WBC (Auto) Vancomycin Trough Coronavirus (PCR) Positive A Crossmatch 07/04/19 07/04/19 07/04/19 23:45 Unknown Unknown WBC RBC Hgb Hct MCV MCH MCHC RDW Plt Count Lymph % (Auto) [place] % (Auto) Lymph # [place] # Baso # Seg Neutrophils % Seg Neuts % (Manual) Lymphocytes % (Manual) Monocytes % (Manual) Nucleated RBC % Seg Neutrophils # Seg Neutrophils # Man Lymphocytes # (Manual) Monocytes # (Manual) Basophils # (Manual) PT INR D-Dimer 759.77 H ABG pH ABG pO2 ABG HCO3 ABG O2 Saturation ABG Base Excess ABG Hemoglobin Oxyhemoglobin Sodium 122 L Potassium Chloride 93.0 L Carbon Dioxide 19 L BUN 27 H Creatinine 0.5 L Glucose POC Glucose Lactic Acid Calcium 8.3 L Magnesium Iron TIBC Ferritin 1301.0 H AST ALT Lactate Dehydrogenase Troponin T C-Reactive Protein Total Protein Albumin Prealbumin Cholesterol LDL Cholesterol Direct HDL Cholesterol Urine WBC (Auto) Vancomycin Trough Coronavirus (PCR) Crossmatch 07/04/19 07/05/19 07/05/19 Unknown 03:20 04:00 WBC RBC Hgb Hct MCV MCH MCHC RDW Plt Count Lymph % (Auto) [place] % (Auto) Lymph # [place] # Baso # Seg Neutrophils % Seg Neuts % (Manual) Lymphocytes % (Manual) Monocytes % (Manual) Nucleated RBC % Seg Neutrophils # Seg Neutrophils # Man Lymphocytes # (Manual) Monocytes # (Manual) Basophils # (Manual) PT INR D-Dimer ABG pH ABG pO2 60.6 L ABG HCO3 ABG O2 Saturation 93.5 L ABG Base Excess -2.4 L ABG Hemoglobin 6.9 L Oxyhemoglobin 92.0 L Sodium 125 L Potassium Chloride 92.6 L Carbon Dioxide 19 L BUN 24 H Creatinine 0.6 L Glucose POC Glucose Lactic Acid Calcium 8.2 L Magnesium 1.40 L Iron TIBC Ferritin AST ALT Lactate Dehydrogenase 242 H Troponin T C-Reactive Protein 16.70 H Total Protein Albumin Prealbumin Cholesterol LDL Cholesterol Direct HDL Cholesterol Urine WBC (Auto) Vancomycin Trough Coronavirus (PCR) Crossmatch 07/05/19 07/05/19 07/05/19 10:11 16:15 17:54 WBC 46.4 H* RBC 2.77 L Hgb 7.2 L Hct 21.9 L MCV 79 L MCH 26 L MCHC RDW 19.0 H Plt Count Lymph % (Auto) [place] % (Auto) Lymph # [place] # Baso # Seg Neutrophils % Seg Neuts % (Manual) 82.0 H Lymphocytes % (Manual) 1.0 L Monocytes % (Manual) Nucleated RBC % Seg Neutrophils # Seg Neutrophils # Man 38.0 H Lymphocytes # (Manual) 0.5 L Monocytes # (Manual) Basophils # (Manual) PT INR D-Dimer ABG pH ABG pO2 ABG HCO3 ABG O2 Saturation ABG Base Excess ABG Hemoglobin Oxyhemoglobin Sodium Potassium Chloride Carbon Dioxide BUN Creatinine Glucose POC Glucose 69 L Lactic Acid Calcium Magnesium Iron TIBC Ferritin AST ALT Lactate Dehydrogenase Troponin T C-Reactive Protein Total Protein Albumin Prealbumin Cholesterol LDL Cholesterol Direct HDL Cholesterol Urine WBC (Auto) Vancomycin Trough 23.2 H Coronavirus (PCR) Crossmatch 07/05/19 07/06/19 07/06/19 19:58 00:27 00:27 WBC RBC Hgb Hct MCV MCH MCHC RDW Plt Count Lymph % (Auto) [place] % (Auto) Lymph # [place] # Baso # Seg Neutrophils % Seg Neuts % (Manual) Lymphocytes % (Manual) Monocytes % (Manual) Nucleated RBC % Seg Neutrophils # Seg Neutrophils # Man Lymphocytes # (Manual) Monocytes # (Manual) Basophils # (Manual) PT INR D-Dimer 1333.22 H ABG pH ABG pO2 ABG HCO3 ABG O2 Saturation ABG Base Excess ABG Hemoglobin Oxyhemoglobin Sodium 127 L Potassium Chloride Carbon Dioxide BUN Creatinine Glucose POC Glucose Lactic Acid Calcium Magnesium Iron TIBC Ferritin 977.1 H AST ALT Lactate Dehydrogenase Troponin T C-Reactive Protein Total Protein Albumin Prealbumin Cholesterol LDL Cholesterol Direct HDL Cholesterol Urine WBC (Auto) Vancomycin Trough Coronavirus (PCR) Crossmatch 07/06/19 07/06/19 07/06/19 00:27 02:00 02:56 WBC RBC Hgb Hct MCV MCH MCHC RDW Plt Count Lymph % (Auto) [place] % (Auto) Lymph # [place] # Baso # Seg Neutrophils % Seg Neuts % (Manual) Lymphocytes % (Manual) Monocytes % (Manual) Nucleated RBC % Seg Neutrophils # Seg Neutrophils # Man Lymphocytes # (Manual) Monocytes # (Manual) Basophils # (Manual) PT INR D-Dimer ABG pH ABG pO2 70.3 L ABG HCO3 ABG O2 Saturation 94.8 L ABG Base Excess ABG Hemoglobin 8.0 L Oxyhemoglobin 93.2 L Sodium Potassium Chloride Carbon Dioxide BUN Creatinine Glucose POC Glucose 117 H Lactic Acid Calcium Magnesium Iron TIBC Ferritin AST ALT Lactate Dehydrogenase 236 H Troponin T C-Reactive Protein 22.90 H Total Protein Albumin Prealbumin Cholesterol LDL Cholesterol Direct HDL Cholesterol Urine WBC (Auto) Vancomycin Trough Coronavirus (PCR) Crossmatch 07/06/19 07/06/19 07/06/19 03:49 03:49 07:40 WBC 38.8 H RBC 2.51 L Hgb 6.7 L Hct 19.9 L* MCV 79 L MCH 27 L MCHC RDW 19.2 H Plt Count Lymph % (Auto) [place] % (Auto) Lymph # [place] # Baso # Seg Neutrophils % Seg Neuts % (Manual) 90.5 H Lymphocytes % (Manual) 1.0 L Monocytes % (Manual) Nucleated RBC % Seg Neutrophils # Seg Neutrophils # Man 35.1 H Lymphocytes # (Manual) 0.4 L Monocytes # (Manual) Basophils # (Manual) PT INR D-Dimer ABG pH ABG pO2 ABG HCO3 ABG O2 Saturation ABG Base Excess ABG Hemoglobin Oxyhemoglobin Sodium 131 L Potassium Chloride 96.9 L Carbon Dioxide 18 L BUN 23 H Creatinine 0.5 L Glucose POC Glucose Lactic Acid Calcium 8.0 L Magnesium Iron TIBC Ferritin AST ALT Lactate Dehydrogenase Troponin T C-Reactive Protein Total Protein Albumin Prealbumin Cholesterol LDL Cholesterol Direct HDL Cholesterol Urine WBC (Auto) Vancomycin Trough Coronavirus (PCR) Crossmatch See Detail 07/06/19 07/06/19 07/06/19 12:38 14:39 20:00 WBC RBC Hgb Hct MCV MCH MCHC RDW Plt Count Lymph % (Auto) [place] % (Auto) Lymph # [place] # Baso # Seg Neutrophils % Seg Neuts % (Manual) Lymphocytes % (Manual) Monocytes % (Manual) Nucleated RBC % Seg Neutrophils # Seg Neutrophils # Man Lymphocytes # (Manual) Monocytes # (Manual) Basophils # (Manual) PT INR D-Dimer ABG pH ABG pO2 ABG HCO3 ABG O2 Saturation ABG Base Excess ABG Hemoglobin Oxyhemoglobin Sodium Potassium Chloride Carbon Dioxide BUN Creatinine Glucose POC Glucose 112 H 111 H 140 H Lactic Acid Calcium Magnesium Iron TIBC Ferritin AST ALT Lactate Dehydrogenase Troponin T C-Reactive Protein Total Protein Albumin Prealbumin Cholesterol LDL Cholesterol Direct HDL Cholesterol Urine WBC (Auto) Vancomycin Trough Coronavirus (PCR) Crossmatch 07/06/19 07/06/19 07/07/19 22:43 22:56 02:20 WBC RBC Hgb 7.9 L Hct 23.1 L MCV MCH MCHC RDW Plt Count Lymph % (Auto) [place] % (Auto) Lymph # [place] # Baso # Seg Neutrophils % Seg Neuts % (Manual) Lymphocytes % (Manual) Monocytes % (Manual) Nucleated RBC % Seg Neutrophils # Seg Neutrophils # Man Lymphocytes # (Manual) Monocytes # (Manual) Basophils # (Manual) PT INR D-Dimer ABG pH ABG pO2 ABG HCO3 ABG O2 Saturation ABG Base Excess ABG Hemoglobin Oxyhemoglobin Sodium Potassium Chloride Carbon Dioxide BUN Creatinine Glucose POC Glucose 122 H 149 H Lactic Acid Calcium Magnesium Iron TIBC Ferritin AST ALT Lactate Dehydrogenase Troponin T C-Reactive Protein Total Protein Albumin Prealbumin Cholesterol LDL Cholesterol Direct HDL Cholesterol Urine WBC (Auto) Vancomycin Trough Coronavirus (PCR) Crossmatch 07/07/19 07/07/19 07/07/19 04:35 05:27 05:34 WBC 23.1 H RBC 3.00 L Hgb 8.1 L Hct 24.2 L MCV 81 L MCH 27 L MCHC RDW 20.6 H Plt Count Lymph % (Auto) [place] % (Auto) Lymph # [place] # Baso # Seg Neutrophils % Seg Neuts % (Manual) 90.0 H Lymphocytes % (Manual) 2.0 L Monocytes % (Manual) Nucleated RBC % Seg Neutrophils # Seg Neutrophils # Man 20.8 H Lymphocytes # (Manual) 0.5 L Monocytes # (Manual) Basophils # (Manual) PT INR D-Dimer ABG pH ABG pO2 65.8 L ABG HCO3 ABG O2 Saturation 92.2 L ABG Base Excess ABG Hemoglobin 8.3 L Oxyhemoglobin 90.6 L Sodium Potassium Chloride Carbon Dioxide BUN Creatinine Glucose POC Glucose 132 H Lactic Acid Calcium Magnesium Iron TIBC Ferritin AST ALT Lactate Dehydrogenase Troponin T C-Reactive Protein Total Protein Albumin Prealbumin Cholesterol LDL Cholesterol Direct HDL Cholesterol Urine WBC (Auto) Vancomycin Trough Coronavirus (PCR) Crossmatch 07/07/19 07/07/19 07/07/19 05:34 11:50 15:58 WBC RBC Hgb 8.1 L Hct 24.2 L MCV MCH MCHC RDW Plt Count Lymph % (Auto) [place] % (Auto) Lymph # [place] # Baso # Seg Neutrophils % Seg Neuts % (Manual) Lymphocytes % (Manual) Monocytes % (Manual) Nucleated RBC % Seg Neutrophils # Seg Neutrophils # Man Lymphocytes # (Manual) Monocytes # (Manual) Basophils # (Manual) PT INR D-Dimer ABG pH ABG pO2 ABG HCO3 ABG O2 Saturation ABG Base Excess ABG Hemoglobin Oxyhemoglobin Sodium 135 L Potassium 3.3 L Chloride Carbon Dioxide 20 L BUN 27 H Creatinine 0.6 L Glucose 121 H POC Glucose 123 H Lactic Acid Calcium 8.0 L Magnesium Iron TIBC Ferritin AST ALT Lactate Dehydrogenase Troponin T C-Reactive Protein Total Protein Albumin Prealbumin Cholesterol LDL Cholesterol Direct HDL Cholesterol Urine WBC (Auto) Vancomycin Trough Coronavirus (PCR) Crossmatch 07/07/19 07/07/19 07/07/19 17:42 22:00 23:53 WBC RBC Hgb 8.0 L Hct 23.4 L MCV MCH MCHC RDW Plt Count Lymph % (Auto) [place] % (Auto) Lymph # [place] # Baso # Seg Neutrophils % Seg Neuts % (Manual) Lymphocytes % (Manual) Monocytes % (Manual) Nucleated RBC % Seg Neutrophils # Seg Neutrophils # Man Lymphocytes # (Manual) Monocytes # (Manual) Basophils # (Manual) PT INR D-Dimer ABG pH ABG pO2 ABG HCO3 ABG O2 Saturation ABG Base Excess ABG Hemoglobin Oxyhemoglobin Sodium Potassium Chloride Carbon Dioxide BUN Creatinine Glucose POC Glucose 107 H 117 H Lactic Acid Calcium Magnesium Iron TIBC Ferritin AST ALT Lactate Dehydrogenase Troponin T C-Reactive Protein Total Protein Albumin Prealbumin Cholesterol LDL Cholesterol Direct HDL Cholesterol Urine WBC (Auto) Vancomycin Trough Coronavirus (PCR) Crossmatch 07/08/19 07/08/19 07/08/19 00:45 00:45 00:45 WBC RBC Hgb Hct MCV MCH MCHC RDW Plt Count Lymph % (Auto) [place] % (Auto) Lymph # [place] # Baso # Seg Neutrophils % Seg Neuts % (Manual) Lymphocytes % (Manual) Monocytes % (Manual) Nucleated RBC % Seg Neutrophils # Seg Neutrophils # Man Lymphocytes # (Manual) Monocytes # (Manual) Basophils # (Manual) PT INR D-Dimer 1142.18 H ABG pH ABG pO2 ABG HCO3 ABG O2 Saturation ABG Base Excess ABG Hemoglobin Oxyhemoglobin Sodium Potassium Chloride Carbon Dioxide BUN Creatinine Glucose POC Glucose Lactic Acid Calcium Magnesium Iron TIBC Ferritin 839.0 H AST ALT Lactate Dehydrogenase 253 H Troponin T C-Reactive Protein 18.90 H Total Protein Albumin Prealbumin Cholesterol LDL Cholesterol Direct HDL Cholesterol Urine WBC (Auto) Vancomycin Trough Coronavirus (PCR) Crossmatch 07/08/19 07/08/19 07/08/19 04:30 05:11 12:02 WBC RBC Hgb Hct MCV MCH MCHC RDW Plt Count Lymph % (Auto) [place] % (Auto) Lymph # [place] # Baso # Seg Neutrophils % Seg Neuts % (Manual) Lymphocytes % (Manual) Monocytes % (Manual) Nucleated RBC % Seg Neutrophils # Seg Neutrophils # Man Lymphocytes # (Manual) Monocytes # (Manual) Basophils # (Manual) PT INR D-Dimer ABG pH ABG pO2 66.0 L ABG HCO3 ABG O2 Saturation 92.3 L ABG Base Excess ABG Hemoglobin 7.7 L Oxyhemoglobin 90.7 L Sodium Potassium Chloride Carbon Dioxide BUN Creatinine Glucose POC Glucose 108 H 153 H Lactic Acid Calcium Magnesium Iron TIBC Ferritin AST ALT Lactate Dehydrogenase Troponin T C-Reactive Protein Total Protein Albumin Prealbumin Cholesterol LDL Cholesterol Direct HDL Cholesterol Urine WBC (Auto) Vancomycin Trough Coronavirus (PCR) Crossmatch 07/08/19 07/08/19 07/08/19 16:15 18:22 23:35 WBC RBC Hgb Hct MCV MCH MCHC RDW Plt Count Lymph % (Auto) [place] % (Auto) Lymph # [place] # Baso # Seg Neutrophils % Seg Neuts % (Manual) Lymphocytes % (Manual) Monocytes % (Manual) Nucleated RBC % Seg Neutrophils # Seg Neutrophils # Man Lymphocytes # (Manual) Monocytes # (Manual) Basophils # (Manual) PT INR D-Dimer ABG pH ABG pO2 ABG HCO3 ABG O2 Saturation ABG Base Excess ABG Hemoglobin Oxyhemoglobin Sodium 134 L Potassium 3.3 L Chloride Carbon Dioxide 21 L BUN 27 H Creatinine 0.6 L Glucose 146 H POC Glucose 134 H 133 H Lactic Acid Calcium Magnesium Iron TIBC Ferritin AST ALT Lactate Dehydrogenase Troponin T C-Reactive Protein Total Protein Albumin Prealbumin Cholesterol LDL Cholesterol Direct HDL Cholesterol Urine WBC (Auto) Vancomycin Trough Coronavirus (PCR) Crossmatch 07/09/19 07/09/19 07/09/19 04:30 04:30 05:00 WBC 18.9 H RBC 2.77 L Hgb 7.4 L Hct 22.8 L MCV 82 L MCH 27 L MCHC RDW 20.9 H Plt Count 130 L Lymph % (Auto) [place] % (Auto) Lymph # [place] # Baso # Seg Neutrophils % Seg Neuts % (Manual) 84.0 H Lymphocytes % (Manual) 0 L Monocytes % (Manual) Nucleated RBC % Seg Neutrophils # Seg Neutrophils # Man 15.9 H Lymphocytes # (Manual) 0.0 L Monocytes # (Manual) Basophils # (Manual) PT INR D-Dimer ABG pH ABG pO2 ABG HCO3 ABG O2 Saturation ABG Base Excess ABG Hemoglobin Oxyhemoglobin Sodium Potassium 3.1 L Chloride Carbon Dioxide BUN 26 H Creatinine 0.5 L Glucose 125 H POC Glucose 155 H Lactic Acid Calcium Magnesium Iron TIBC Ferritin AST ALT Lactate Dehydrogenase Troponin T C-Reactive Protein Total Protein Albumin Prealbumin Cholesterol LDL Cholesterol Direct HDL Cholesterol Urine WBC (Auto) Vancomycin Trough Coronavirus (PCR) Crossmatch 07/09/19 07/09/19 07/09/19 05:55 12:22 17:50 WBC RBC Hgb Hct MCV MCH MCHC RDW Plt Count Lymph % (Auto) [place] % (Auto) Lymph # [place] # Baso # Seg Neutrophils % Seg Neuts % (Manual) Lymphocytes % (Manual) Monocytes % (Manual) Nucleated RBC % Seg Neutrophils # Seg Neutrophils # Man Lymphocytes # (Manual) Monocytes # (Manual) Basophils # (Manual) PT INR D-Dimer ABG pH ABG pO2 62.8 L ABG HCO3 ABG O2 Saturation ABG Base Excess ABG Hemoglobin 6.1 L Oxyhemoglobin 93.9 L Sodium Potassium Chloride Carbon Dioxide BUN Creatinine Glucose POC Glucose 115 H 133 H Lactic Acid Calcium Magnesium Iron TIBC Ferritin AST ALT Lactate Dehydrogenase Troponin T C-Reactive Protein Total Protein Albumin Prealbumin Cholesterol LDL Cholesterol Direct HDL Cholesterol Urine WBC (Auto) Vancomycin Trough Coronavirus (PCR) Crossmatch 07/10/19 07/10/19 07/10/19 00:38 04:00 04:00 WBC RBC Hgb Hct MCV MCH MCHC RDW Plt Count Lymph % (Auto) [place] % (Auto) Lymph # [place] # Baso # Seg Neutrophils % Seg Neuts % (Manual) Lymphocytes % (Manual) Monocytes % (Manual) Nucleated RBC % Seg Neutrophils # Seg Neutrophils # Man Lymphocytes # (Manual) Monocytes # (Manual) Basophils # (Manual) PT INR D-Dimer ABG pH ABG pO2 ABG HCO3 ABG O2 Saturation ABG Base Excess ABG Hemoglobin Oxyhemoglobin Sodium Potassium Chloride 107.9 H Carbon Dioxide BUN 26 H Creatinine 0.4 L Glucose 137 H POC Glucose 122 H Lactic Acid Calcium Magnesium 1.50 L Iron TIBC Ferritin AST ALT Lactate Dehydrogenase 277 H Troponin T C-Reactive Protein 15.10 H Total Protein Albumin Prealbumin Cholesterol LDL Cholesterol Direct HDL Cholesterol Urine WBC (Auto) Vancomycin Trough Coronavirus (PCR) Crossmatch 07/10/19 07/10/19 07/10/19 04:07 05:21 17:25 WBC RBC Hgb Hct MCV MCH MCHC RDW Plt Count Lymph % (Auto) [place] % (Auto) Lymph # [place] # Baso # Seg Neutrophils % Seg Neuts % (Manual) Lymphocytes % (Manual) Monocytes % (Manual) Nucleated RBC % Seg Neutrophils # Seg Neutrophils # Man Lymphocytes # (Manual) Monocytes # (Manual) Basophils # (Manual) PT INR D-Dimer ABG pH ABG pO2 65.6 L ABG HCO3 26.3 H ABG O2 Saturation ABG Base Excess ABG Hemoglobin 6.7 L Oxyhemoglobin Sodium Potassium Chloride Carbon Dioxide BUN Creatinine Glucose POC Glucose 144 H 113 H Lactic Acid Calcium Magnesium Iron TIBC Ferritin AST ALT Lactate Dehydrogenase Troponin T C-Reactive Protein Total Protein Albumin Prealbumin Cholesterol LDL Cholesterol Direct HDL Cholesterol Urine WBC (Auto) Vancomycin Trough Coronavirus (PCR) Crossmatch 07/11/19 07/11/19 07/11/19 00:07 05:14 05:25 WBC RBC Hgb Hct MCV MCH MCHC RDW Plt Count Lymph % (Auto) [place] % (Auto) Lymph # [place] # Baso # Seg Neutrophils % Seg Neuts % (Manual) Lymphocytes % (Manual) Monocytes % (Manual) Nucleated RBC % Seg Neutrophils # Seg Neutrophils # Man Lymphocytes # (Manual) Monocytes # (Manual) Basophils # (Manual) PT INR D-Dimer ABG pH ABG pO2 ABG HCO3 ABG O2 Saturation ABG Base Excess ABG Hemoglobin 5.8 L Oxyhemoglobin Sodium Potassium Chloride 108.0 H Carbon Dioxide BUN 26 H Creatinine 0.4 L Glucose 110 H POC Glucose 121 H Lactic Acid Calcium Magnesium Iron TIBC Ferritin AST ALT Lactate Dehydrogenase Troponin T C-Reactive Protein Total Protein Albumin Prealbumin Cholesterol LDL Cholesterol Direct HDL Cholesterol Urine WBC (Auto) Vancomycin Trough Coronavirus (PCR) Crossmatch 07/11/19 07/11/19 07/11/19 12:27 18:00 23:42 WBC RBC Hgb Hct MCV MCH MCHC RDW Plt Count Lymph % (Auto) [place] % (Auto) Lymph # [place] # Baso # Seg Neutrophils % Seg Neuts % (Manual) Lymphocytes % (Manual) Monocytes % (Manual) Nucleated RBC % Seg Neutrophils # Seg Neutrophils # Man Lymphocytes # (Manual) Monocytes # (Manual) Basophils # (Manual) PT INR D-Dimer ABG pH ABG pO2 ABG HCO3 ABG O2 Saturation ABG Base Excess ABG Hemoglobin Oxyhemoglobin Sodium Potassium Chloride Carbon Dioxide BUN Creatinine Glucose POC Glucose 158 H 141 H 142 H Lactic Acid Calcium Magnesium Iron TIBC Ferritin AST ALT Lactate Dehydrogenase Troponin T C-Reactive Protein Total Protein Albumin Prealbumin Cholesterol LDL Cholesterol Direct HDL Cholesterol Urine WBC (Auto) Vancomycin Trough Coronavirus (PCR) Crossmatch 07/12/19 07/12/19 07/12/19 04:46 04:46 05:23 WBC 23.6 H RBC 2.51 L Hgb 6.7 L Hct 20.8 L MCV 83 L MCH 27 L MCHC RDW 20.3 H Plt Count Lymph % (Auto) [place] % (Auto) Lymph # [place] # Baso # Seg Neutrophils % Seg Neuts % (Manual) 94.0 H Lymphocytes % (Manual) 4.0 L Monocytes % (Manual) Nucleated RBC % Seg Neutrophils # Seg Neutrophils # Man 22.2 H Lymphocytes # (Manual) 0.9 L Monocytes # (Manual) Basophils # (Manual) PT INR D-Dimer ABG pH ABG pO2 ABG HCO3 ABG O2 Saturation ABG Base Excess ABG Hemoglobin Oxyhemoglobin Sodium Potassium Chloride 107.1 H Carbon Dioxide BUN 25 H Creatinine 0.4 L Glucose 122 H POC Glucose 118 H Lactic Acid Calcium Magnesium Iron TIBC Ferritin AST ALT Lactate Dehydrogenase Troponin T C-Reactive Protein Total Protein Albumin Prealbumin Cholesterol LDL Cholesterol Direct HDL Cholesterol Urine WBC (Auto) Vancomycin Trough Coronavirus (PCR) Crossmatch 07/12/19 07/12/19 07/12/19 08:49 11:36 18:15 WBC RBC Hgb Hct MCV MCH MCHC RDW Plt Count Lymph % (Auto) [place] % (Auto) Lymph # [place] # Baso # Seg Neutrophils % Seg Neuts % (Manual) Lymphocytes % (Manual) Monocytes % (Manual) Nucleated RBC % Seg Neutrophils # Seg Neutrophils # Man Lymphocytes # (Manual) Monocytes # (Manual) Basophils # (Manual) PT INR D-Dimer ABG pH ABG pO2 ABG HCO3 ABG O2 Saturation ABG Base Excess ABG Hemoglobin Oxyhemoglobin Sodium Potassium Chloride Carbon Dioxide BUN Creatinine Glucose POC Glucose 124 H 110 H Lactic Acid Calcium Magnesium Iron TIBC Ferritin AST ALT Lactate Dehydrogenase Troponin T C-Reactive Protein Total Protein Albumin Prealbumin Cholesterol LDL Cholesterol Direct HDL Cholesterol Urine WBC (Auto) Vancomycin Trough Coronavirus (PCR) Crossmatch See Detail 07/12/19 07/13/19 07/13/19 23:16 05:26 06:50 WBC 23.9 H RBC 2.58 L Hgb 6.9 L Hct 21.5 L MCV 83 L MCH 27 L MCHC RDW 19.0 H Plt Count Lymph % (Auto) [place] % (Auto) Lymph # [place] # Baso # Seg Neutrophils % Seg Neuts % (Manual) 96.0 H Lymphocytes % (Manual) 3.0 L Monocytes % (Manual) Nucleated RBC % Seg Neutrophils # Seg Neutrophils # Man 22.9 H Lymphocytes # (Manual) 0.7 L Monocytes # (Manual) Basophils # (Manual) PT INR D-Dimer ABG pH ABG pO2 ABG HCO3 ABG O2 Saturation ABG Base Excess ABG Hemoglobin Oxyhemoglobin Sodium Potassium Chloride Carbon Dioxide BUN Creatinine Glucose POC Glucose 108 H 126 H Lactic Acid Calcium Magnesium Iron TIBC Ferritin AST ALT Lactate Dehydrogenase Troponin T C-Reactive Protein Total Protein Albumin Prealbumin Cholesterol LDL Cholesterol Direct HDL Cholesterol Urine WBC (Auto) Vancomycin Trough Coronavirus (PCR) Crossmatch 07/13/19 07/13/19 07/13/19 06:50 12:38 18:05 WBC RBC Hgb Hct MCV MCH MCHC RDW Plt Count Lymph % (Auto) [place] % (Auto) Lymph # [place] # Baso # Seg Neutrophils % Seg Neuts % (Manual) Lymphocytes % (Manual) Monocytes % (Manual) Nucleated RBC % Seg Neutrophils # Seg Neutrophils # Man Lymphocytes # (Manual) Monocytes # (Manual) Basophils # (Manual) PT INR D-Dimer ABG pH ABG pO2 ABG HCO3 ABG O2 Saturation ABG Base Excess ABG Hemoglobin Oxyhemoglobin Sodium Potassium Chloride Carbon Dioxide BUN 33 H Creatinine 0.5 L Glucose 136 H POC Glucose 164 H 145 H Lactic Acid Calcium Magnesium Iron TIBC Ferritin AST ALT Lactate Dehydrogenase Troponin T C-Reactive Protein Total Protein Albumin Prealbumin Cholesterol LDL Cholesterol Direct HDL Cholesterol Urine WBC (Auto) Vancomycin Trough Coronavirus (PCR) Crossmatch 07/13/19 07/14/19 07/14/19 18:30 00:21 04:40 WBC 22.9 H RBC 2.45 L Hgb 6.6 L Hct 21.1 L MCV MCH 27 L MCHC 31 L RDW 19.2 H Plt Count Lymph % (Auto) [place] % (Auto) Lymph # [place] # Baso # Seg Neutrophils % Seg Neuts % (Manual) 91.0 H Lymphocytes % (Manual) 7.0 L Monocytes % (Manual) Nucleated RBC % Seg Neutrophils # Seg Neutrophils # Man 20.8 H Lymphocytes # (Manual) Monocytes # (Manual) Basophils # (Manual) PT INR D-Dimer ABG pH ABG pO2 58.1 L ABG HCO3 ABG O2 Saturation 88.7 L ABG Base Excess ABG Hemoglobin 7.8 L Oxyhemoglobin 86.8 L Sodium Potassium Chloride Carbon Dioxide BUN Creatinine Glucose POC Glucose 118 H Lactic Acid Calcium Magnesium Iron TIBC Ferritin AST ALT Lactate Dehydrogenase Troponin T C-Reactive Protein Total Protein Albumin Prealbumin Cholesterol LDL Cholesterol Direct HDL Cholesterol Urine WBC (Auto) Vancomycin Trough Coronavirus (PCR) Crossmatch 07/14/19 07/14/19 07/14/19 04:40 05:38 05:45 WBC RBC Hgb Hct MCV MCH MCHC RDW Plt Count Lymph % (Auto) [place] % (Auto) Lymph # [place] # Baso # Seg Neutrophils % Seg Neuts % (Manual) Lymphocytes % (Manual) Monocytes % (Manual) Nucleated RBC % Seg Neutrophils # Seg Neutrophils # Man Lymphocytes # (Manual) Monocytes # (Manual) Basophils # (Manual) PT INR D-Dimer ABG pH 7.230 L ABG pO2 72.1 L ABG HCO3 ABG O2 Saturation 89.3 L ABG Base Excess -2.7 L ABG Hemoglobin 6.7 L Oxyhemoglobin 87.7 L Sodium Potassium Chloride 107.4 H Carbon Dioxide BUN 45 H Creatinine Glucose 101 H POC Glucose 154 H Lactic Acid Calcium Magnesium Iron TIBC Ferritin AST ALT Lactate Dehydrogenase Troponin T C-Reactive Protein Total Protein Albumin Prealbumin Cholesterol LDL Cholesterol Direct HDL Cholesterol Urine WBC (Auto) Vancomycin Trough Coronavirus (PCR) Crossmatch 07/14/19 07/14/19 07/14/19 12:25 18:20 19:01 WBC 22.4 H RBC 2.70 L Hgb 7.5 L Hct 23.3 L MCV MCH MCHC RDW 19.5 H Plt Count Lymph % (Auto) [place] % (Auto) Lymph # [place] # Baso # Seg Neutrophils % Seg Neuts % (Manual) Lymphocytes % (Manual) Monocytes % (Manual) Nucleated RBC % Seg Neutrophils # Seg Neutrophils # Man Lymphocytes # (Manual) Monocytes # (Manual) Basophils # (Manual) PT INR D-Dimer ABG pH ABG pO2 ABG HCO3 ABG O2 Saturation ABG Base Excess ABG Hemoglobin Oxyhemoglobin Sodium Potassium Chloride Carbon Dioxide BUN Creatinine Glucose POC Glucose 136 H 131 H Lactic Acid Calcium Magnesium Iron TIBC Ferritin AST ALT Lactate Dehydrogenase Troponin T C-Reactive Protein Total Protein Albumin Prealbumin Cholesterol LDL Cholesterol Direct HDL Cholesterol Urine WBC (Auto) Vancomycin Trough Coronavirus (PCR) Crossmatch 07/15/19 07/15/19 07/15/19 00:17 04:35 05:18 WBC 20.6 H RBC 2.41 L Hgb 6.8 L Hct 20.7 L MCV MCH MCHC RDW 20.2 H Plt Count Lymph % (Auto) [place] % (Auto) Lymph # [place] # Baso # Seg Neutrophils % Seg Neuts % (Manual) 92.0 H Lymphocytes % (Manual) 5.0 L Monocytes % (Manual) Nucleated RBC % Seg Neutrophils # Seg Neutrophils # Man 19.0 H Lymphocytes # (Manual) 1.0 L Monocytes # (Manual) Basophils # (Manual) PT INR D-Dimer ABG pH 7.342 L ABG pO2 ABG HCO3 ABG O2 Saturation ABG Base Excess -3.1 L ABG Hemoglobin 7.2 L Oxyhemoglobin 94.9 L Sodium Potassium Chloride Carbon Dioxide BUN Creatinine Glucose POC Glucose 116 H Lactic Acid Calcium Magnesium Iron TIBC Ferritin AST ALT Lactate Dehydrogenase Troponin T C-Reactive Protein Total Protein Albumin Prealbumin Cholesterol LDL Cholesterol Direct HDL Cholesterol Urine WBC (Auto) Vancomycin Trough Coronavirus (PCR) Crossmatch 07/15/19 07/15/19 07/15/19 05:18 05:57 11:28 WBC RBC Hgb Hct MCV MCH MCHC RDW Plt Count Lymph % (Auto) [place] % (Auto) Lymph # [place] # Baso # Seg Neutrophils % Seg Neuts % (Manual) Lymphocytes % (Manual) Monocytes % (Manual) Nucleated RBC % Seg Neutrophils # Seg Neutrophils # Man Lymphocytes # (Manual) Monocytes # (Manual) Basophils # (Manual) PT INR D-Dimer ABG pH ABG pO2 ABG HCO3 ABG O2 Saturation ABG Base Excess ABG Hemoglobin Oxyhemoglobin Sodium Potassium Chloride Carbon Dioxide 20 L BUN 59 H Creatinine Glucose 140 H POC Glucose 139 H 117 H Lactic Acid Calcium Magnesium Iron TIBC Ferritin AST ALT Lactate Dehydrogenase Troponin T C-Reactive Protein Total Protein Albumin Prealbumin Cholesterol LDL Cholesterol Direct HDL Cholesterol Urine WBC (Auto) Vancomycin Trough Coronavirus (PCR) Crossmatch 07/15/19 07/16/19 07/16/19 18:13 00:06 03:43 WBC RBC Hgb Hct MCV MCH MCHC RDW Plt Count Lymph % (Auto) [place] % (Auto) Lymph # [place] # Baso # Seg Neutrophils % Seg Neuts % (Manual) Lymphocytes % (Manual) Monocytes % (Manual) Nucleated RBC % Seg Neutrophils # Seg Neutrophils # Man Lymphocytes # (Manual) Monocytes # (Manual) Basophils # (Manual) PT INR D-Dimer ABG pH 7.344 L ABG pO2 68.6 L ABG HCO3 ABG O2 Saturation ABG Base Excess -3.5 L ABG Hemoglobin 6.1 L Oxyhemoglobin 93.3 L Sodium Potassium Chloride Carbon Dioxide BUN Creatinine Glucose POC Glucose 114 H 119 H Lactic Acid Calcium Magnesium Iron TIBC Ferritin AST ALT Lactate Dehydrogenase Troponin T C-Reactive Protein Total Protein Albumin Prealbumin Cholesterol LDL Cholesterol Direct HDL Cholesterol Urine WBC (Auto) Vancomycin Trough Coronavirus (PCR) Crossmatch 07/16/19 07/16/19 07/16/19 04:41 04:41 12:09 WBC 19.6 H RBC 2.81 L Hgb 7.7 L Hct 24.0 L MCV MCH 27 L MCHC RDW 19.4 H Plt Count 514 H Lymph % (Auto) 6.7 L [place] % (Auto) Lymph # [place] # 1.0 H Baso # Seg Neutrophils % 87.0 H Seg Neuts % (Manual) Lymphocytes % (Manual) Monocytes % (Manual) Nucleated RBC % Seg Neutrophils # 17.0 H Seg Neutrophils # Man Lymphocytes # (Manual) Monocytes # (Manual) Basophils # (Manual) PT INR D-Dimer ABG pH ABG pO2 ABG HCO3 ABG O2 Saturation ABG Base Excess ABG Hemoglobin Oxyhemoglobin Sodium Potassium 5.9 H Chloride Carbon Dioxide 21 L BUN 73 H Creatinine 2.0 H Glucose POC Glucose 141 H Lactic Acid Calcium Magnesium Iron TIBC Ferritin AST ALT Lactate Dehydrogenase Troponin T C-Reactive Protein Total Protein Albumin Prealbumin Cholesterol LDL Cholesterol Direct HDL Cholesterol Urine WBC (Auto) Vancomycin Trough Coronavirus (PCR) Crossmatch 07/16/19 07/16/19 07/17/19 16:19 17:45 00:16 WBC RBC Hgb Hct MCV MCH MCHC RDW Plt Count Lymph % (Auto) [place] % (Auto) Lymph # [place] # Baso # Seg Neutrophils % Seg Neuts % (Manual) Lymphocytes % (Manual) Monocytes % (Manual) Nucleated RBC % Seg Neutrophils # Seg Neutrophils # Man Lymphocytes # (Manual) Monocytes # (Manual) Basophils # (Manual) PT INR D-Dimer ABG pH ABG pO2 ABG HCO3 ABG O2 Saturation ABG Base Excess ABG Hemoglobin Oxyhemoglobin Sodium Potassium 5.1 H Chloride Carbon Dioxide 20 L BUN 72 H Creatinine 1.7 H Glucose 128 H POC Glucose 181 H 164 H Lactic Acid Calcium Magnesium Iron TIBC Ferritin AST ALT Lactate Dehydrogenase Troponin T C-Reactive Protein Total Protein Albumin Prealbumin Cholesterol LDL Cholesterol Direct HDL Cholesterol Urine WBC (Auto) Vancomycin Trough Coronavirus (PCR) Crossmatch 07/17/19 07/17/19 07/17/19 04:20 04:39 04:39 WBC 16.1 H RBC 2.92 L Hgb 8.0 L Hct 25.5 L MCV MCH MCHC 31 L RDW 19.7 H Plt Count 564 H Lymph % (Auto) 3.6 L [place] % (Auto) 7.4 H Lymph # 0.6 L [place] # 1.2 H Baso # Seg Neutrophils % 87.5 H Seg Neuts % (Manual) Lymphocytes % (Manual) Monocytes % (Manual) Nucleated RBC % Seg Neutrophils # 14.1 H Seg Neutrophils # Man Lymphocytes # (Manual) Monocytes # (Manual) Basophils # (Manual) PT INR D-Dimer ABG pH 7.231 L ABG pO2 95.3 H ABG HCO3 ABG O2 Saturation ABG Base Excess -5.0 L ABG Hemoglobin 7.9 L Oxyhemoglobin 94.8 L Sodium Potassium Chloride 107.8 H Carbon Dioxide 21 L BUN 68 H Creatinine Glucose POC Glucose Lactic Acid Calcium Magnesium Iron TIBC Ferritin AST ALT Lactate Dehydrogenase Troponin T C-Reactive Protein Total Protein Albumin Prealbumin Cholesterol LDL Cholesterol Direct HDL Cholesterol Urine WBC (Auto) Vancomycin Trough Coronavirus (PCR) Crossmatch 07/17/19 07/17/19 07/17/19 05:28 12:11 18:48 WBC RBC Hgb Hct MCV MCH MCHC RDW Plt Count Lymph % (Auto) [place] % (Auto) Lymph # [place] # Baso # Seg Neutrophils % Seg Neuts % (Manual) Lymphocytes % (Manual) Monocytes % (Manual) Nucleated RBC % Seg Neutrophils # Seg Neutrophils # Man Lymphocytes # (Manual) Monocytes # (Manual) Basophils # (Manual) PT INR D-Dimer ABG pH ABG pO2 ABG HCO3 ABG O2 Saturation ABG Base Excess ABG Hemoglobin Oxyhemoglobin Sodium Potassium Chloride Carbon Dioxide BUN Creatinine Glucose POC Glucose 121 H 125 H 174 H Lactic Acid Calcium Magnesium Iron TIBC Ferritin AST ALT Lactate Dehydrogenase Troponin T C-Reactive Protein Total Protein Albumin Prealbumin Cholesterol LDL Cholesterol Direct HDL Cholesterol Urine WBC (Auto) Vancomycin Trough Coronavirus (PCR) Crossmatch 07/17/19 07/17/19 07/18/19 19:55 23:57 02:30 WBC RBC Hgb Hct MCV MCH MCHC RDW Plt Count Lymph % (Auto) [place] % (Auto) Lymph # [place] # Baso # Seg Neutrophils % Seg Neuts % (Manual) Lymphocytes % (Manual) Monocytes % (Manual) Nucleated RBC % Seg Neutrophils # Seg Neutrophils # Man Lymphocytes # (Manual) Monocytes # (Manual) Basophils # (Manual) PT INR D-Dimer ABG pH 7.344 L 7.294 L ABG pO2 78.5 L 119.2 H ABG HCO3 ABG O2 Saturation ABG Base Excess -3.3 L -2.6 L ABG Hemoglobin 8.6 L 8.1 L Oxyhemoglobin 94.8 L Sodium Potassium Chloride Carbon Dioxide BUN Creatinine Glucose POC Glucose 148 H Lactic Acid Calcium Magnesium Iron TIBC Ferritin AST ALT Lactate Dehydrogenase Troponin T C-Reactive Protein Total Protein Albumin Prealbumin Cholesterol LDL Cholesterol Direct HDL Cholesterol Urine WBC (Auto) Vancomycin Trough Coronavirus (PCR) Crossmatch 07/18/19 07/18/19 07/18/19 04:49 05:22 05:22 WBC 15.9 H RBC 3.00 L Hgb 8.1 L Hct 26.0 L MCV MCH 27 L MCHC 31 L RDW 19.4 H Plt Count 733 H Lymph % (Auto) 6.3 L [place] % (Auto) 7.4 H Lymph # 1.0 L [place] # 1.2 H Baso # 0.2 H Seg Neutrophils % 83.8 H Seg Neuts % (Manual) Lymphocytes % (Manual) Monocytes % (Manual) Nucleated RBC % Seg Neutrophils # 13.3 H Seg Neutrophils # Man Lymphocytes # (Manual) Monocytes # (Manual) Basophils # (Manual) PT INR D-Dimer ABG pH ABG pO2 ABG HCO3 ABG O2 Saturation ABG Base Excess ABG Hemoglobin Oxyhemoglobin Sodium Potassium Chloride 110.6 H Carbon Dioxide BUN 61 H Creatinine Glucose 109 H POC Glucose 116 H Lactic Acid Calcium Magnesium Iron TIBC Ferritin AST ALT Lactate Dehydrogenase Troponin T C-Reactive Protein Total Protein Albumin Prealbumin Cholesterol LDL Cholesterol Direct HDL Cholesterol Urine WBC (Auto) Vancomycin Trough Coronavirus (PCR) Crossmatch 07/18/19 07/18/19 07/18/19 12:23 18:06 22:20 WBC RBC Hgb Hct MCV MCH MCHC RDW Plt Count Lymph % (Auto) [place] % (Auto) Lymph # [place] # Baso # Seg Neutrophils % Seg Neuts % (Manual) Lymphocytes % (Manual) Monocytes % (Manual) Nucleated RBC % Seg Neutrophils # Seg Neutrophils # Man Lymphocytes # (Manual) Monocytes # (Manual) Basophils # (Manual) PT INR D-Dimer ABG pH 7.338 L ABG pO2 135.1 H ABG HCO3 ABG O2 Saturation ABG Base Excess ABG Hemoglobin 9.2 L Oxyhemoglobin Sodium Potassium Chloride Carbon Dioxide BUN Creatinine Glucose POC Glucose 114 H 113 H Lactic Acid Calcium Magnesium Iron TIBC Ferritin AST ALT Lactate Dehydrogenase Troponin T C-Reactive Protein Total Protein Albumin Prealbumin Cholesterol LDL Cholesterol Direct HDL Cholesterol Urine WBC (Auto) Vancomycin Trough Coronavirus (PCR) Crossmatch 07/18/19 07/19/19 07/19/19 23:33 03:45 05:18 WBC RBC Hgb Hct MCV MCH MCHC RDW Plt Count Lymph % (Auto) [place] % (Auto) Lymph # [place] # Baso # Seg Neutrophils % Seg Neuts % (Manual) Lymphocytes % (Manual) Monocytes % (Manual) Nucleated RBC % Seg Neutrophils # Seg Neutrophils # Man Lymphocytes # (Manual) Monocytes # (Manual) Basophils # (Manual) PT INR D-Dimer ABG pH 7.342 L ABG pO2 95.0 H ABG HCO3 ABG O2 Saturation ABG Base Excess ABG Hemoglobin 8.5 L Oxyhemoglobin Sodium Potassium Chloride Carbon Dioxide BUN Creatinine Glucose POC Glucose 125 H 111 H Lactic Acid Calcium Magnesium Iron TIBC Ferritin AST ALT Lactate Dehydrogenase Troponin T C-Reactive Protein Total Protein Albumin Prealbumin Cholesterol LDL Cholesterol Direct HDL Cholesterol Urine WBC (Auto) Vancomycin Trough Coronavirus (PCR) Crossmatch 07/19/19 07/19/19 07/19/19 08:45 08:45 11:47 WBC 15.9 H RBC 3.31 L Hgb 9.1 L Hct 28.4 L MCV MCH 27 L MCHC RDW 19.1 H Plt Count 858 H Lymph % (Auto) 4.9 L [place] % (Auto) 8.1 H Lymph # 0.8 L [place] # 1.3 H Baso # Seg Neutrophils % 85.5 H Seg Neuts % (Manual) Lymphocytes % (Manual) Monocytes % (Manual) Nucleated RBC % Seg Neutrophils # 13.6 H Seg Neutrophils # Man Lymphocytes # (Manual) Monocytes # (Manual) Basophils # (Manual) PT INR D-Dimer ABG pH ABG pO2 ABG HCO3 ABG O2 Saturation ABG Base Excess ABG Hemoglobin Oxyhemoglobin Sodium Potassium Chloride 111.6 H Carbon Dioxide BUN 50 H Creatinine 0.7 L Glucose 118 H POC Glucose 114 H Lactic Acid Calcium Magnesium Iron TIBC Ferritin AST ALT Lactate Dehydrogenase Troponin T C-Reactive Protein Total Protein Albumin Prealbumin Cholesterol LDL Cholesterol Direct HDL Cholesterol Urine WBC (Auto) Vancomycin Trough Coronavirus (PCR) Crossmatch 07/19/19 07/19/19 07/20/19 18:25 23:44 04:39 WBC RBC Hgb Hct MCV MCH MCHC RDW Plt Count Lymph % (Auto) [place] % (Auto) Lymph # [place] # Baso # Seg Neutrophils % Seg Neuts % (Manual) Lymphocytes % (Manual) Monocytes % (Manual) Nucleated RBC % Seg Neutrophils # Seg Neutrophils # Man Lymphocytes # (Manual) Monocytes # (Manual) Basophils # (Manual) PT INR D-Dimer ABG pH ABG pO2 ABG HCO3 ABG O2 Saturation ABG Base Excess ABG Hemoglobin Oxyhemoglobin Sodium Potassium Chloride 110.3 H Carbon Dioxide BUN 44 H Creatinine 0.6 L Glucose 120 H POC Glucose 115 H 117 H Lactic Acid Calcium Magnesium Iron TIBC Ferritin AST ALT Lactate Dehydrogenase Troponin T C-Reactive Protein Total Protein Albumin Prealbumin Cholesterol LDL Cholesterol Direct HDL Cholesterol Urine WBC (Auto) Vancomycin Trough Coronavirus (PCR) Crossmatch 07/20/19 07/21/19 07/21/19 05:30 11:59 17:40 WBC RBC Hgb Hct MCV MCH MCHC RDW Plt Count Lymph % (Auto) [place] % (Auto) Lymph # [place] # Baso # Seg Neutrophils % Seg Neuts % (Manual) Lymphocytes % (Manual) Monocytes % (Manual) Nucleated RBC % Seg Neutrophils # Seg Neutrophils # Man Lymphocytes # (Manual) Monocytes # (Manual) Basophils # (Manual) PT INR D-Dimer ABG pH ABG pO2 ABG HCO3 ABG O2 Saturation ABG Base Excess ABG Hemoglobin Oxyhemoglobin Sodium Potassium Chloride Carbon Dioxide BUN Creatinine Glucose POC Glucose 131 H 122 H 125 H Lactic Acid Calcium Magnesium Iron TIBC Ferritin AST ALT Lactate Dehydrogenase Troponin T C-Reactive Protein Total Protein Albumin Prealbumin Cholesterol LDL Cholesterol Direct HDL Cholesterol Urine WBC (Auto) Vancomycin Trough Coronavirus (PCR) Crossmatch 07/22/19 07/22/19 07/22/19 05:38 05:38 12:29 WBC 12.6 H RBC 3.19 L Hgb 8.9 L Hct 27.5 L MCV MCH MCHC RDW 18.9 H Plt Count 1101 H* Lymph % (Auto) [place] % (Auto) 12.2 H Lymph # [place] # 1.5 H Baso # Seg Neutrophils % 72.8 H Seg Neuts % (Manual) 76.0 H Lymphocytes % (Manual) 7.0 L Monocytes % (Manual) 14.0 H Nucleated RBC % 1.0 H Seg Neutrophils # 9.2 H Seg Neutrophils # Man 9.6 H Lymphocytes # (Manual) 0.9 L Monocytes # (Manual) 1.8 H Basophils # (Manual) PT INR D-Dimer ABG pH ABG pO2 ABG HCO3 ABG O2 Saturation ABG Base Excess ABG Hemoglobin Oxyhemoglobin Sodium Potassium 3.4 L Chloride Carbon Dioxide BUN 29 H Creatinine 0.5 L Glucose POC Glucose 116 H Lactic Acid Calcium Magnesium Iron TIBC Ferritin AST ALT Lactate Dehydrogenase Troponin T C-Reactive Protein Total Protein Albumin Prealbumin Cholesterol LDL Cholesterol Direct HDL Cholesterol Urine WBC (Auto) Vancomycin Trough Coronavirus (PCR) Crossmatch 07/22/19 07/22/19 07/23/19 18:20 23:51 04:52 WBC RBC Hgb Hct MCV MCH MCHC RDW Plt Count Lymph % (Auto) [place] % (Auto) Lymph # [place] # Baso # Seg Neutrophils % Seg Neuts % (Manual) Lymphocytes % (Manual) Monocytes % (Manual) Nucleated RBC % Seg Neutrophils # Seg Neutrophils # Man Lymphocytes # (Manual) Monocytes # (Manual) Basophils # (Manual) PT INR D-Dimer ABG pH ABG pO2 ABG HCO3 ABG O2 Saturation ABG Base Excess ABG Hemoglobin Oxyhemoglobin Sodium Potassium Chloride Carbon Dioxide BUN 24 H Creatinine 0.4 L Glucose POC Glucose 107 H 110 H Lactic Acid Calcium Magnesium Iron TIBC Ferritin AST ALT Lactate Dehydrogenase Troponin T C-Reactive Protein Total Protein Albumin Prealbumin Cholesterol LDL Cholesterol Direct HDL Cholesterol Urine WBC (Auto) Vancomycin Trough Coronavirus (PCR) Crossmatch 07/23/19 07/23/19 07/24/19 06:00 23:15 04:40 WBC RBC Hgb Hct MCV MCH MCHC RDW Plt Count Lymph % (Auto) [place] % (Auto) Lymph # [place] # Baso # Seg Neutrophils % Seg Neuts % (Manual) Lymphocytes % (Manual) Monocytes % (Manual) Nucleated RBC % Seg Neutrophils # Seg Neutrophils # Man Lymphocytes # (Manual) Monocytes # (Manual) Basophils # (Manual) PT INR D-Dimer ABG pH ABG pO2 73.5 L ABG HCO3 27.0 H 28.5 H ABG O2 Saturation 94.5 L ABG Base Excess ABG Hemoglobin 9.4 L 8.9 L Oxyhemoglobin 94.0 L 92.7 L Sodium Potassium Chloride Carbon Dioxide BUN Creatinine Glucose POC Glucose 117 H Lactic Acid Calcium Magnesium Iron TIBC Ferritin AST ALT Lactate Dehydrogenase Troponin T C-Reactive Protein Total Protein Albumin Prealbumin Cholesterol LDL Cholesterol Direct HDL Cholesterol Urine WBC (Auto) Vancomycin Trough Coronavirus (PCR) Crossmatch 07/24/19 07/24/19 07/25/19 05:25 12:06 00:16 WBC RBC Hgb Hct MCV MCH MCHC RDW Plt Count Lymph % (Auto) [place] % (Auto) Lymph # [place] # Baso # Seg Neutrophils % Seg Neuts % (Manual) Lymphocytes % (Manual) Monocytes % (Manual) Nucleated RBC % Seg Neutrophils # Seg Neutrophils # Man Lymphocytes # (Manual) Monocytes # (Manual) Basophils # (Manual) PT INR D-Dimer ABG pH ABG pO2 ABG HCO3 ABG O2 Saturation ABG Base Excess ABG Hemoglobin Oxyhemoglobin Sodium Potassium Chloride Carbon Dioxide BUN Creatinine Glucose POC Glucose 114 H 108 H 106 H Lactic Acid Calcium Magnesium Iron TIBC Ferritin AST ALT Lactate Dehydrogenase Troponin T C-Reactive Protein Total Protein Albumin Prealbumin Cholesterol LDL Cholesterol Direct HDL Cholesterol Urine WBC (Auto) Vancomycin Trough Coronavirus (PCR) Crossmatch 07/25/19 07/25/19 07/25/19 05:14 05:14 05:17 WBC 17.8 H RBC 3.32 L Hgb 9.2 L Hct 28.6 L MCV MCH MCHC RDW 19.9 H Plt Count 994 H Lymph % (Auto) [place] % (Auto) Lymph # [place] # Baso # Seg Neutrophils % Seg Neuts % (Manual) 82.0 H Lymphocytes % (Manual) 5.0 L Monocytes % (Manual) Nucleated RBC % Seg Neutrophils # Seg Neutrophils # Man 14.6 H Lymphocytes # (Manual) 0.9 L Monocytes # (Manual) 1.2 H Basophils # (Manual) PT INR D-Dimer ABG pH ABG pO2 ABG HCO3 ABG O2 Saturation ABG Base Excess ABG Hemoglobin Oxyhemoglobin Sodium Potassium Chloride Carbon Dioxide BUN Creatinine 0.4 L Glucose 110 H POC Glucose 107 H Lactic Acid Calcium Magnesium Iron TIBC Ferritin AST ALT Lactate Dehydrogenase Troponin T C-Reactive Protein Total Protein Albumin Prealbumin Cholesterol LDL Cholesterol Direct HDL Cholesterol Urine WBC (Auto) Vancomycin Trough Coronavirus (PCR) Crossmatch 07/25/19 07/25/19 07/26/19 11:55 23:49 06:01 WBC RBC Hgb Hct MCV MCH MCHC RDW Plt Count Lymph % (Auto) [place] % (Auto) Lymph # [place] # Baso # Seg Neutrophils % Seg Neuts % (Manual) Lymphocytes % (Manual) Monocytes % (Manual) Nucleated RBC % Seg Neutrophils # Seg Neutrophils # Man Lymphocytes # (Manual) Monocytes # (Manual) Basophils # (Manual) PT INR D-Dimer ABG pH ABG pO2 ABG HCO3 ABG O2 Saturation ABG Base Excess ABG Hemoglobin Oxyhemoglobin Sodium Potassium Chloride Carbon Dioxide BUN Creatinine Glucose POC Glucose 123 H 118 H 106 H Lactic Acid Calcium Magnesium Iron TIBC Ferritin AST ALT Lactate Dehydrogenase Troponin T C-Reactive Protein Total Protein Albumin Prealbumin Cholesterol LDL Cholesterol Direct HDL Cholesterol Urine WBC (Auto) Vancomycin Trough Coronavirus (PCR) Crossmatch 07/26/19 07/27/19 07/27/19 17:02 00:28 05:16 WBC RBC Hgb Hct MCV MCH MCHC RDW Plt Count Lymph % (Auto) [place] % (Auto) Lymph # [place] # Baso # Seg Neutrophils % Seg Neuts % (Manual) Lymphocytes % (Manual) Monocytes % (Manual) Nucleated RBC % Seg Neutrophils # Seg Neutrophils # Man Lymphocytes # (Manual) Monocytes # (Manual) Basophils # (Manual) PT INR D-Dimer ABG pH ABG pO2 63.4 L ABG HCO3 31.3 H ABG O2 Saturation 92.7 L ABG Base Excess 6.3 H ABG Hemoglobin 7.6 L Oxyhemoglobin 90.9 L Sodium Potassium Chloride Carbon Dioxide BUN Creatinine Glucose POC Glucose 116 H 158 H Lactic Acid Calcium Magnesium Iron TIBC Ferritin AST ALT Lactate Dehydrogenase Troponin T C-Reactive Protein Total Protein Albumin Prealbumin Cholesterol LDL Cholesterol Direct HDL Cholesterol Urine WBC (Auto) Vancomycin Trough Coronavirus (PCR) Crossmatch 07/28/19 07/28/19 07/28/19 10:13 10:13 23:54 WBC 18.5 H RBC 3.20 L Hgb 8.8 L Hct 26.8 L MCV MCH 27 L MCHC RDW 19.9 H Plt Count 730 H Lymph % (Auto) [place] % (Auto) Lymph # [place] # Baso # Seg Neutrophils % Seg Neuts % (Manual) Lymphocytes % (Manual) Monocytes % (Manual) Nucleated RBC % Seg Neutrophils # Seg Neutrophils # Man Lymphocytes # (Manual) Monocytes # (Manual) Basophils # (Manual) PT INR D-Dimer ABG pH ABG pO2 ABG HCO3 ABG O2 Saturation ABG Base Excess ABG Hemoglobin Oxyhemoglobin Sodium Potassium 3.2 L Chloride 97.5 L Carbon Dioxide 31 H BUN Creatinine 0.5 L Glucose POC Glucose 120 H Lactic Acid Calcium Magnesium Iron TIBC Ferritin AST ALT Lactate Dehydrogenase Troponin T C-Reactive Protein Total Protein Albumin Prealbumin Cholesterol LDL Cholesterol Direct HDL Cholesterol Urine WBC (Auto) Vancomycin Trough Coronavirus (PCR) Crossmatch 07/29/19 07/29/19 07/29/19 11:57 17:43 Unknown WBC RBC Hgb Hct MCV MCH MCHC RDW Plt Count Lymph % (Auto) [place] % (Auto) Lymph # [place] # Baso # Seg Neutrophils % Seg Neuts % (Manual) Lymphocytes % (Manual) Monocytes % (Manual) Nucleated RBC % Seg Neutrophils # Seg Neutrophils # Man Lymphocytes # (Manual) Monocytes # (Manual) Basophils # (Manual) PT INR D-Dimer ABG pH ABG pO2 ABG HCO3 ABG O2 Saturation ABG Base Excess ABG Hemoglobin Oxyhemoglobin Sodium Potassium Chloride Carbon Dioxide BUN Creatinine Glucose POC Glucose 112 H Lactic Acid Calcium Magnesium Iron TIBC Ferritin AST ALT Lactate Dehydrogenase Troponin T C-Reactive Protein Total Protein Albumin Prealbumin Cholesterol LDL Cholesterol Direct HDL Cholesterol Urine WBC (Auto) 63.0 H Vancomycin Trough Coronavirus (PCR) Positive A Crossmatch 07/30/19 07/30/19 07/30/19 00:20 04:35 04:35 WBC 24.3 H RBC 3.12 L Hgb 8.5 L Hct 26.3 L MCV MCH 27 L MCHC RDW 20.2 H Plt Count 550 H Lymph % (Auto) [place] % (Auto) Lymph # [place] # Baso # Seg Neutrophils % Seg Neuts % (Manual) Lymphocytes % (Manual) Monocytes % (Manual) Nucleated RBC % Seg Neutrophils # Seg Neutrophils # Man Lymphocytes # (Manual) Monocytes # (Manual) Basophils # (Manual) PT INR D-Dimer ABG pH ABG pO2 ABG HCO3 ABG O2 Saturation ABG Base Excess ABG Hemoglobin Oxyhemoglobin Sodium Potassium 3.0 L Chloride 96.3 L Carbon Dioxide 32 H BUN Creatinine 0.5 L Glucose POC Glucose 106 H Lactic Acid Calcium Magnesium Iron TIBC Ferritin AST ALT Lactate Dehydrogenase Troponin T C-Reactive Protein Total Protein Albumin Prealbumin Cholesterol LDL Cholesterol Direct HDL Cholesterol Urine WBC (Auto) Vancomycin Trough Coronavirus (PCR) Crossmatch 07/31/19 07/31/19 07/31/19 04:42 04:42 11:33 WBC 23.8 H RBC 3.10 L Hgb 8.4 L Hct 26.1 L MCV MCH 27 L MCHC RDW 19.6 H Plt Count 561 H Lymph % (Auto) [place] % (Auto) Lymph # [place] # Baso # Seg Neutrophils % Seg Neuts % (Manual) Lymphocytes % (Manual) Monocytes % (Manual) Nucleated RBC % Seg Neutrophils # Seg Neutrophils # Man Lymphocytes # (Manual) Monocytes # (Manual) Basophils # (Manual) PT INR D-Dimer ABG pH ABG pO2 ABG HCO3 ABG O2 Saturation ABG Base Excess ABG Hemoglobin Oxyhemoglobin Sodium 135 L Potassium Chloride 93.9 L Carbon Dioxide 32 H BUN Creatinine 0.4 L Glucose POC Glucose 116 H Lactic Acid Calcium Magnesium Iron TIBC Ferritin AST ALT Lactate Dehydrogenase Troponin T C-Reactive Protein Total Protein Albumin 1.6 L Prealbumin 0.037 L Cholesterol LDL Cholesterol Direct HDL Cholesterol Urine WBC (Auto) Vancomycin Trough Coronavirus (PCR) Crossmatch 07/31/19 08/01/19 08/01/19 23:33 04:57 04:57 WBC 26.7 H RBC 3.12 L Hgb 8.5 L Hct 26.3 L MCV MCH 27 L MCHC RDW 19.2 H Plt Count 602 H Lymph % (Auto) [place] % (Auto) Lymph # [place] # Baso # Seg Neutrophils % Seg Neuts % (Manual) 93.0 H Lymphocytes % (Manual) 2.0 L Monocytes % (Manual) Nucleated RBC % Seg Neutrophils # Seg Neutrophils # Man 24.8 H Lymphocytes # (Manual) 0.5 L Monocytes # (Manual) 1.1 H Basophils # (Manual) PT INR D-Dimer ABG pH ABG pO2 ABG HCO3 ABG O2 Saturation ABG Base Excess ABG Hemoglobin Oxyhemoglobin Sodium 132 L Potassium Chloride 93.8 L Carbon Dioxide 31 H BUN Creatinine 0.3 L Glucose POC Glucose 148 H Lactic Acid Calcium 8.1 L Magnesium Iron TIBC Ferritin AST ALT Lactate Dehydrogenase Troponin T C-Reactive Protein Total Protein Albumin Prealbumin Cholesterol LDL Cholesterol Direct HDL Cholesterol Urine WBC (Auto) Vancomycin Trough Coronavirus (PCR) Crossmatch 08/01/19 08/02/19 08/02/19 12:16 00:22 05:24 WBC RBC Hgb Hct MCV MCH MCHC RDW Plt Count Lymph % (Auto) [place] % (Auto) Lymph # [place] # Baso # Seg Neutrophils % Seg Neuts % (Manual) Lymphocytes % (Manual) Monocytes % (Manual) Nucleated RBC % Seg Neutrophils # Seg Neutrophils # Man Lymphocytes # (Manual) Monocytes # (Manual) Basophils # (Manual) PT INR D-Dimer ABG pH ABG pO2 ABG HCO3 ABG O2 Saturation ABG Base Excess ABG Hemoglobin Oxyhemoglobin Sodium Potassium Chloride Carbon Dioxide BUN Creatinine Glucose POC Glucose 120 H 119 H 113 H Lactic Acid Calcium Magnesium Iron TIBC Ferritin AST ALT Lactate Dehydrogenase Troponin T C-Reactive Protein Total Protein Albumin Prealbumin Cholesterol LDL Cholesterol Direct HDL Cholesterol Urine WBC (Auto) Vancomycin Trough Coronavirus (PCR) Crossmatch 08/03/19 08/03/19 08/03/19 05:20 12:01 23:48 WBC RBC Hgb Hct MCV MCH MCHC RDW Plt Count Lymph % (Auto) [place] % (Auto) Lymph # [place] # Baso # Seg Neutrophils % Seg Neuts % (Manual) Lymphocytes % (Manual) Monocytes % (Manual) Nucleated RBC % Seg Neutrophils # Seg Neutrophils # Man Lymphocytes # (Manual) Monocytes # (Manual) Basophils # (Manual) PT INR D-Dimer ABG pH ABG pO2 ABG HCO3 ABG O2 Saturation ABG Base Excess ABG Hemoglobin Oxyhemoglobin Sodium Potassium Chloride Carbon Dioxide BUN Creatinine Glucose POC Glucose 118 H 106 H 120 H Lactic Acid Calcium Magnesium Iron TIBC Ferritin AST ALT Lactate Dehydrogenase Troponin T C-Reactive Protein Total Protein Albumin Prealbumin Cholesterol LDL Cholesterol Direct HDL Cholesterol Urine WBC (Auto) Vancomycin Trough Coronavirus (PCR) Crossmatch 08/04/19 08/04/19 08/04/19 05:38 05:38 06:29 WBC 26.1 H RBC 2.77 L Hgb 7.5 L Hct 23.2 L MCV MCH 27 L MCHC RDW 19.2 H Plt Count 648 H Lymph % (Auto) [place] % (Auto) Lymph # [place] # Baso # Seg Neutrophils % Seg Neuts % (Manual) 90.5 H Lymphocytes % (Manual) 3.5 L Monocytes % (Manual) Nucleated RBC % Seg Neutrophils # Seg Neutrophils # Man 23.6 H Lymphocytes # (Manual) 0.9 L Monocytes # (Manual) 1.2 H Basophils # (Manual) PT INR D-Dimer ABG pH ABG pO2 ABG HCO3 ABG O2 Saturation ABG Base Excess ABG Hemoglobin Oxyhemoglobin Sodium 132 L Potassium 3.4 L D Chloride 92.7 L Carbon Dioxide 33 H BUN Creatinine 0.2 L Glucose POC Glucose 108 H Lactic Acid Calcium 8.1 L Magnesium Iron TIBC Ferritin AST ALT Lactate Dehydrogenase Troponin T C-Reactive Protein Total Protein Albumin Prealbumin Cholesterol LDL Cholesterol Direct HDL Cholesterol Urine WBC (Auto) Vancomycin Trough Coronavirus (PCR) Crossmatch 08/04/19 08/05/19 08/05/19 12:30 04:58 04:58 WBC 21.0 H RBC 2.63 L Hgb 7.2 L Hct 21.9 L MCV 83 L MCH 27 L MCHC RDW 18.9 H Plt Count 691 H Lymph % (Auto) [place] % (Auto) Lymph # [place] # Baso # Seg Neutrophils % Seg Neuts % (Manual) 86.0 H Lymphocytes % (Manual) 3.0 L Monocytes % (Manual) 10.0 H Nucleated RBC % Seg Neutrophils # Seg Neutrophils # Man 18.1 H Lymphocytes # (Manual) 0.6 L Monocytes # (Manual) 2.1 H Basophils # (Manual) PT INR D-Dimer ABG pH ABG pO2 ABG HCO3 ABG O2 Saturation ABG Base Excess ABG Hemoglobin Oxyhemoglobin Sodium 134 L Potassium 3.2 L Chloride 93.2 L Carbon Dioxide 34 H BUN 8 L Creatinine 0.3 L Glucose POC Glucose 138 H Lactic Acid Calcium 8.1 L Magnesium Iron TIBC Ferritin AST ALT Lactate Dehydrogenase Troponin T C-Reactive Protein Total Protein Albumin Prealbumin Cholesterol LDL Cholesterol Direct HDL Cholesterol Urine WBC (Auto) Vancomycin Trough Coronavirus (PCR) Crossmatch 08/05/19 08/05/19 08/05/19 11:53 17:57 23:58 WBC RBC Hgb Hct MCV MCH MCHC RDW Plt Count Lymph % (Auto) [place] % (Auto) Lymph # [place] # Baso # Seg Neutrophils % Seg Neuts % (Manual) Lymphocytes % (Manual) Monocytes % (Manual) Nucleated RBC % Seg Neutrophils # Seg Neutrophils # Man Lymphocytes # (Manual) Monocytes # (Manual) Basophils # (Manual) PT INR D-Dimer ABG pH ABG pO2 ABG HCO3 ABG O2 Saturation ABG Base Excess ABG Hemoglobin Oxyhemoglobin Sodium Potassium Chloride Carbon Dioxide BUN Creatinine Glucose POC Glucose 106 H 111 H 116 H Lactic Acid Calcium Magnesium Iron TIBC Ferritin AST ALT Lactate Dehydrogenase Troponin T C-Reactive Protein Total Protein Albumin Prealbumin Cholesterol LDL Cholesterol Direct HDL Cholesterol Urine WBC (Auto) Vancomycin Trough Coronavirus (PCR) Crossmatch 08/06/19 08/06/19 08/06/19 04:11 04:11 06:04 WBC 20.8 H RBC 2.80 L Hgb 7.6 L Hct 23.5 L MCV MCH 27 L MCHC RDW 19.0 H Plt Count 723 H Lymph % (Auto) [place] % (Auto) Lymph # [place] # Baso # Seg Neutrophils % Seg Neuts % (Manual) 88.0 H Lymphocytes % (Manual) 3.0 L Monocytes % (Manual) Nucleated RBC % Seg Neutrophils # Seg Neutrophils # Man 18.3 H Lymphocytes # (Manual) 0.6 L Monocytes # (Manual) Basophils # (Manual) 0.2 H PT INR D-Dimer ABG pH ABG pO2 ABG HCO3 ABG O2 Saturation ABG Base Excess ABG Hemoglobin Oxyhemoglobin Sodium Potassium 3.4 L Chloride 95.2 L Carbon Dioxide 32 H BUN Creatinine 0.3 L Glucose POC Glucose 108 H Lactic Acid Calcium 8.2 L Magnesium Iron TIBC Ferritin AST ALT Lactate Dehydrogenase Troponin T C-Reactive Protein Total Protein Albumin Prealbumin Cholesterol LDL Cholesterol Direct HDL Cholesterol Urine WBC (Auto) Vancomycin Trough Coronavirus (PCR) Crossmatch 08/06/19 08/06/19 08/07/19 12:23 17:13 00:21 WBC RBC Hgb Hct MCV MCH MCHC RDW Plt Count Lymph % (Auto) [place] % (Auto) Lymph # [place] # Baso # Seg Neutrophils % Seg Neuts % (Manual) Lymphocytes % (Manual) Monocytes % (Manual) Nucleated RBC % Seg Neutrophils # Seg Neutrophils # Man Lymphocytes # (Manual) Monocytes # (Manual) Basophils # (Manual) PT INR D-Dimer ABG pH ABG pO2 ABG HCO3 ABG O2 Saturation ABG Base Excess ABG Hemoglobin Oxyhemoglobin Sodium Potassium Chloride Carbon Dioxide BUN Creatinine Glucose POC Glucose 112 H 132 H 147 H Lactic Acid Calcium Magnesium Iron TIBC Ferritin AST ALT Lactate Dehydrogenase Troponin T C-Reactive Protein Total Protein Albumin Prealbumin Cholesterol LDL Cholesterol Direct HDL Cholesterol Urine WBC (Auto) Vancomycin Trough Coronavirus (PCR) Crossmatch 08/07/19 08/07/19 08/07/19 05:16 05:23 05:23 WBC 30.3 H RBC 2.69 L Hgb 7.1 L Hct 22.2 L MCV 83 L MCH 27 L MCHC RDW 19.1 H Plt Count 650 H Lymph % (Auto) [place] % (Auto) Lymph # [place] # Baso # Seg Neutrophils % Seg Neuts % (Manual) 88.0 H Lymphocytes % (Manual) 5.0 L Monocytes % (Manual) Nucleated RBC % Seg Neutrophils # Seg Neutrophils # Man 26.7 H Lymphocytes # (Manual) Monocytes # (Manual) 2.1 H Basophils # (Manual) PT INR D-Dimer ABG pH ABG pO2 ABG HCO3 ABG O2 Saturation ABG Base Excess ABG Hemoglobin Oxyhemoglobin Sodium 135 L Potassium 3.4 L Chloride 95.4 L Carbon Dioxide 32 H BUN Creatinine 0.4 L Glucose 120 H POC Glucose 120 H Lactic Acid Calcium 7.7 L Magnesium Iron TIBC Ferritin AST ALT Lactate Dehydrogenase Troponin T C-Reactive Protein Total Protein Albumin Prealbumin Cholesterol LDL Cholesterol Direct HDL Cholesterol Urine WBC (Auto) Vancomycin Trough Coronavirus (PCR) Crossmatch 08/07/19 08/07/19 08/07/19 10:24 10:24 11:10 WBC RBC Hgb Hct MCV MCH MCHC RDW Plt Count Lymph % (Auto) [place] % (Auto) Lymph # [place] # Baso # Seg Neutrophils % Seg Neuts % (Manual) Lymphocytes % (Manual) Monocytes % (Manual) Nucleated RBC % Seg Neutrophils # Seg Neutrophils # Man Lymphocytes # (Manual) Monocytes # (Manual) Basophils # (Manual) PT INR D-Dimer 1808.06 H ABG pH ABG pO2 73.3 L ABG HCO3 33.9 H ABG O2 Saturation ABG Base Excess 9.0 H ABG Hemoglobin 6.3 L Oxyhemoglobin 94.3 L Sodium Potassium Chloride Carbon Dioxide BUN Creatinine Glucose POC Glucose Lactic Acid Calcium Magnesium Iron TIBC Ferritin AST ALT Lactate Dehydrogenase Troponin T C-Reactive Protein 11.10 H Total Protein Albumin Prealbumin Cholesterol LDL Cholesterol Direct HDL Cholesterol Urine WBC (Auto) Vancomycin Trough Coronavirus (PCR) Crossmatch 08/07/19 08/08/19 08/08/19 12:01 04:41 04:41 WBC 22.1 H RBC 2.82 L Hgb 7.7 L Hct 23.6 L MCV MCH 27 L MCHC RDW 19.1 H Plt Count 722 H Lymph % (Auto) [place] % (Auto) Lymph # [place] # Baso # Seg Neutrophils % Seg Neuts % (Manual) 90.0 H Lymphocytes % (Manual) 3.0 L Monocytes % (Manual) Nucleated RBC % Seg Neutrophils # Seg Neutrophils # Man 19.9 H Lymphocytes # (Manual) 0.7 L Monocytes # (Manual) 1.3 H Basophils # (Manual) PT INR D-Dimer ABG pH ABG pO2 ABG HCO3 ABG O2 Saturation ABG Base Excess ABG Hemoglobin Oxyhemoglobin Sodium 136 L Potassium Chloride 97.8 L Carbon Dioxide BUN Creatinine 0.3 L Glucose 105 H POC Glucose 130 H Lactic Acid Calcium 7.8 L Magnesium Iron TIBC Ferritin AST ALT Lactate Dehydrogenase Troponin T C-Reactive Protein Total Protein Albumin Prealbumin Cholesterol LDL Cholesterol Direct HDL Cholesterol Urine WBC (Auto) Vancomycin Trough Coronavirus (PCR) Crossmatch 08/08/19 08/08/19 08/09/19 11:46 18:35 00:12 WBC RBC Hgb Hct MCV MCH MCHC RDW Plt Count Lymph % (Auto) [place] % (Auto) Lymph # [place] # Baso # Seg Neutrophils % Seg Neuts % (Manual) Lymphocytes % (Manual) Monocytes % (Manual) Nucleated RBC % Seg Neutrophils # Seg Neutrophils # Man Lymphocytes # (Manual) Monocytes # (Manual) Basophils # (Manual) PT INR D-Dimer ABG pH ABG pO2 ABG HCO3 ABG O2 Saturation ABG Base Excess ABG Hemoglobin Oxyhemoglobin Sodium Potassium Chloride Carbon Dioxide BUN Creatinine Glucose POC Glucose 117 H 117 H 117 H Lactic Acid Calcium Magnesium Iron TIBC Ferritin AST ALT Lactate Dehydrogenase Troponin T C-Reactive Protein Total Protein Albumin Prealbumin Cholesterol LDL Cholesterol Direct HDL Cholesterol Urine WBC (Auto) Vancomycin Trough Coronavirus (PCR) Crossmatch 08/09/19 08/09/19 08/09/19 05:33 12:22 17:48 WBC RBC Hgb Hct MCV MCH MCHC RDW Plt Count Lymph % (Auto) [place] % (Auto) Lymph # [place] # Baso # Seg Neutrophils % Seg Neuts % (Manual) Lymphocytes % (Manual) Monocytes % (Manual) Nucleated RBC % Seg Neutrophils # Seg Neutrophils # Man Lymphocytes # (Manual) Monocytes # (Manual) Basophils # (Manual) PT INR D-Dimer ABG pH ABG pO2 ABG HCO3 ABG O2 Saturation ABG Base Excess ABG Hemoglobin Oxyhemoglobin Sodium Potassium Chloride Carbon Dioxide BUN Creatinine Glucose POC Glucose 119 H 133 H 123 H Lactic Acid Calcium Magnesium Iron TIBC Ferritin AST ALT Lactate Dehydrogenase Troponin T C-Reactive Protein Total Protein Albumin Prealbumin Cholesterol LDL Cholesterol Direct HDL Cholesterol Urine WBC (Auto) Vancomycin Trough Coronavirus (PCR) Crossmatch 08/09/19 08/09/19 08/10/19 17:59 18:15 00:02 WBC RBC Hgb 6.7 L Hct 20.4 L MCV MCH MCHC RDW Plt Count Lymph % (Auto) [place] % (Auto) Lymph # [place] # Baso # Seg Neutrophils % Seg Neuts % (Manual) Lymphocytes % (Manual) Monocytes % (Manual) Nucleated RBC % Seg Neutrophils # Seg Neutrophils # Man Lymphocytes # (Manual) Monocytes # (Manual) Basophils # (Manual) PT INR D-Dimer ABG pH ABG pO2 ABG HCO3 ABG O2 Saturation ABG Base Excess ABG Hemoglobin Oxyhemoglobin Sodium Potassium Chloride Carbon Dioxide BUN Creatinine Glucose POC Glucose 124 H Lactic Acid Calcium Magnesium Iron TIBC Ferritin AST ALT Lactate Dehydrogenase Troponin T C-Reactive Protein Total Protein Albumin Prealbumin Cholesterol LDL Cholesterol Direct HDL Cholesterol Urine WBC (Auto) Vancomycin Trough Coronavirus (PCR) Crossmatch See Detail 08/10/19 08/10/19 08/10/19 05:47 08:00 08:00 WBC 16.9 H RBC 2.94 L Hgb 8.2 L Hct 24.9 L MCV MCH MCHC RDW 17.0 H Plt Count 661 H Lymph % (Auto) [place] % (Auto) Lymph # [place] # Baso # Seg Neutrophils % Seg Neuts % (Manual) Lymphocytes % (Manual) Monocytes % (Manual) Nucleated RBC % Seg Neutrophils # Seg Neutrophils # Man Lymphocytes # (Manual) Monocytes # (Manual) Basophils # (Manual) PT INR D-Dimer ABG pH ABG pO2 ABG HCO3 ABG O2 Saturation ABG Base Excess ABG Hemoglobin Oxyhemoglobin Sodium Potassium Chloride Carbon Dioxide BUN Creatinine 0.3 L Glucose 116 H POC Glucose 148 H Lactic Acid Calcium 7.7 L Magnesium Iron TIBC Ferritin AST ALT Lactate Dehydrogenase Troponin T C-Reactive Protein Total Protein Albumin Prealbumin Cholesterol LDL Cholesterol Direct HDL Cholesterol Urine WBC (Auto) Vancomycin Trough Coronavirus (PCR) Crossmatch 08/10/19 08/10/19 08/10/19 12:38 18:06 23:56 WBC RBC Hgb Hct MCV MCH MCHC RDW Plt Count Lymph % (Auto) [place] % (Auto) Lymph # [place] # Baso # Seg Neutrophils % Seg Neuts % (Manual) Lymphocytes % (Manual) Monocytes % (Manual) Nucleated RBC % Seg Neutrophils # Seg Neutrophils # Man Lymphocytes # (Manual) Monocytes # (Manual) Basophils # (Manual) PT INR D-Dimer ABG pH ABG pO2 ABG HCO3 ABG O2 Saturation ABG Base Excess ABG Hemoglobin Oxyhemoglobin Sodium Potassium Chloride Carbon Dioxide BUN Creatinine Glucose POC Glucose 113 H 126 H 115 H Lactic Acid Calcium Magnesium Iron TIBC Ferritin AST ALT Lactate Dehydrogenase Troponin T C-Reactive Protein Total Protein Albumin Prealbumin Cholesterol LDL Cholesterol Direct HDL Cholesterol Urine WBC (Auto) Vancomycin Trough Coronavirus (PCR) Crossmatch 08/10/19 08/11/19 08/12/19 Unknown 18:10 03:30 WBC 14.4 H RBC 2.58 L Hgb 7.4 L Hct 22.1 L MCV MCH MCHC RDW 17.4 H Plt Count 786 H Lymph % (Auto) [place] % (Auto) Lymph # [place] # Baso # Seg Neutrophils % Seg Neuts % (Manual) Lymphocytes % (Manual) Monocytes % (Manual) Nucleated RBC % Seg Neutrophils # Seg Neutrophils # Man Lymphocytes # (Manual) Monocytes # (Manual) Basophils # (Manual) PT INR D-Dimer ABG pH ABG pO2 ABG HCO3 ABG O2 Saturation ABG Base Excess ABG Hemoglobin Oxyhemoglobin Sodium Potassium Chloride Carbon Dioxide BUN Creatinine Glucose POC Glucose 106 H Lactic Acid Calcium Magnesium Iron TIBC Ferritin AST ALT Lactate Dehydrogenase Troponin T C-Reactive Protein Total Protein Albumin Prealbumin Cholesterol LDL Cholesterol Direct HDL Cholesterol Urine WBC (Auto) Vancomycin Trough Coronavirus (PCR) Positive A Crossmatch 08/12/19 08/12/19 08/13/19 03:30 12:08 05:25 WBC RBC Hgb Hct MCV MCH MCHC RDW Plt Count Lymph % (Auto) [place] % (Auto) Lymph # [place] # Baso # Seg Neutrophils % Seg Neuts % (Manual) Lymphocytes % (Manual) Monocytes % (Manual) Nucleated RBC % Seg Neutrophils # Seg Neutrophils # Man Lymphocytes # (Manual) Monocytes # (Manual) Basophils # (Manual) PT INR D-Dimer ABG pH ABG pO2 ABG HCO3 ABG O2 Saturation ABG Base Excess ABG Hemoglobin Oxyhemoglobin Sodium Potassium Chloride Carbon Dioxide BUN 7 L Creatinine 0.3 L Glucose 117 H POC Glucose 112 H 126 H Lactic Acid Calcium 7.8 L Magnesium Iron TIBC Ferritin AST ALT Lactate Dehydrogenase Troponin T C-Reactive Protein Total Protein Albumin Prealbumin Cholesterol LDL Cholesterol Direct HDL Cholesterol Urine WBC (Auto) Vancomycin Trough Coronavirus (PCR) Crossmatch 08/13/19 08/13/19 08/13/19 11:36 17:10 19:06 WBC RBC Hgb Hct MCV MCH MCHC RDW Plt Count Lymph % (Auto) [place] % (Auto) Lymph # [place] # Baso # Seg Neutrophils % Seg Neuts % (Manual) Lymphocytes % (Manual) Monocytes % (Manual) Nucleated RBC % Seg Neutrophils # Seg Neutrophils # Man Lymphocytes # (Manual) Monocytes # (Manual) Basophils # (Manual) PT INR D-Dimer ABG pH ABG pO2 105.0 H ABG HCO3 28.5 H ABG O2 Saturation ABG Base Excess 3.5 H ABG Hemoglobin 7.8 L Oxyhemoglobin Sodium Potassium Chloride Carbon Dioxide BUN Creatinine Glucose POC Glucose 143 H 107 H Lactic Acid Calcium Magnesium Iron TIBC Ferritin AST ALT Lactate Dehydrogenase Troponin T C-Reactive Protein Total Protein Albumin Prealbumin Cholesterol LDL Cholesterol Direct HDL Cholesterol Urine WBC (Auto) Vancomycin Trough Coronavirus (PCR) Crossmatch 08/13/19 08/14/19 08/14/19 23:23 05:00 05:00 WBC 14.3 H RBC 2.76 L Hgb 7.8 L Hct 23.9 L MCV MCH MCHC RDW 18.7 H Plt Count 896 H Lymph % (Auto) [place] % (Auto) Lymph # [place] # Baso # Seg Neutrophils % Seg Neuts % (Manual) Lymphocytes % (Manual) Monocytes % (Manual) Nucleated RBC % Seg Neutrophils # Seg Neutrophils # Man Lymphocytes # (Manual) Monocytes # (Manual) Basophils # (Manual) PT INR D-Dimer ABG pH ABG pO2 ABG HCO3 ABG O2 Saturation ABG Base Excess ABG Hemoglobin Oxyhemoglobin Sodium Potassium Chloride Carbon Dioxide BUN 6 L Creatinine 0.3 L Glucose POC Glucose 125 H Lactic Acid Calcium 8.2 L Magnesium Iron TIBC Ferritin AST ALT Lactate Dehydrogenase Troponin T C-Reactive Protein Total Protein Albumin Prealbumin Cholesterol LDL Cholesterol Direct HDL Cholesterol Urine WBC (Auto) Vancomycin Trough Coronavirus (PCR) Crossmatch 08/14/19 08/15/19 08/15/19 05:07 00:25 05:42 WBC RBC Hgb Hct MCV MCH MCHC RDW Plt Count Lymph % (Auto) [place] % (Auto) Lymph # [place] # Baso # Seg Neutrophils % Seg Neuts % (Manual) Lymphocytes % (Manual) Monocytes % (Manual) Nucleated RBC % Seg Neutrophils # Seg Neutrophils # Man Lymphocytes # (Manual) Monocytes # (Manual) Basophils # (Manual) PT INR D-Dimer ABG pH ABG pO2 ABG HCO3 ABG O2 Saturation ABG Base Excess ABG Hemoglobin Oxyhemoglobin Sodium Potassium Chloride Carbon Dioxide BUN Creatinine Glucose POC Glucose 128 H 117 H 115 H Lactic Acid Calcium Magnesium Iron TIBC Ferritin AST ALT Lactate Dehydrogenase Troponin T C-Reactive Protein Total Protein Albumin Prealbumin Cholesterol LDL Cholesterol Direct HDL Cholesterol Urine WBC (Auto) Vancomycin Trough Coronavirus (PCR) Crossmatch 08/15/19 08/15/19 08/15/19 06:10 06:10 06:10 WBC 11.6 H RBC 2.68 L Hgb 7.7 L Hct 23.3 L MCV MCH MCHC RDW 19.2 H Plt Count 885 H Lymph % (Auto) [place] % (Auto) Lymph # [place] # Baso # Seg Neutrophils % Seg Neuts % (Manual) Lymphocytes % (Manual) Monocytes % (Manual) Nucleated RBC % Seg Neutrophils # Seg Neutrophils # Man Lymphocytes # (Manual) Monocytes # (Manual) Basophils # (Manual) PT INR D-Dimer ABG pH ABG pO2 ABG HCO3 ABG O2 Saturation ABG Base Excess ABG Hemoglobin Oxyhemoglobin Sodium Potassium Chloride Carbon Dioxide BUN 6 L Creatinine 0.3 L Glucose 107 H POC Glucose Lactic Acid Calcium 8.2 L Magnesium 1.50 L Iron TIBC Ferritin AST ALT Lactate Dehydrogenase Troponin T C-Reactive Protein Total Protein Albumin Prealbumin Cholesterol LDL Cholesterol Direct HDL Cholesterol Urine WBC (Auto) Vancomycin Trough Coronavirus (PCR) Crossmatch 08/15/19 08/16/19 08/16/19 12:12 00:05 05:00 WBC 13.3 H RBC 2.87 L Hgb 8.1 L Hct 24.9 L MCV MCH MCHC RDW 18.7 H Plt Count 962 H Lymph % (Auto) [place] % (Auto) Lymph # [place] # Baso # Seg Neutrophils % Seg Neuts % (Manual) Lymphocytes % (Manual) Monocytes % (Manual) Nucleated RBC % Seg Neutrophils # Seg Neutrophils # Man Lymphocytes # (Manual) Monocytes # (Manual) Basophils # (Manual) PT INR D-Dimer ABG pH ABG pO2 ABG HCO3 ABG O2 Saturation ABG Base Excess ABG Hemoglobin Oxyhemoglobin Sodium Potassium Chloride Carbon Dioxide BUN Creatinine Glucose POC Glucose 112 H 111 H Lactic Acid Calcium Magnesium Iron TIBC Ferritin AST ALT Lactate Dehydrogenase Troponin T C-Reactive Protein Total Protein Albumin Prealbumin Cholesterol LDL Cholesterol Direct HDL Cholesterol Urine WBC (Auto) Vancomycin Trough Coronavirus (PCR) Crossmatch 08/16/19 05:00 WBC RBC Hgb Hct MCV MCH MCHC RDW Plt Count Lymph % (Auto) [place] % (Auto) Lymph # [place] # Baso # Seg Neutrophils % Seg Neuts % (Manual) Lymphocytes % (Manual) Monocytes % (Manual) Nucleated RBC % Seg Neutrophils # Seg Neutrophils # Man Lymphocytes # (Manual) Monocytes # (Manual) Basophils # (Manual) PT INR D-Dimer ABG pH ABG pO2 ABG HCO3 ABG O2 Saturation ABG Base Excess ABG Hemoglobin Oxyhemoglobin Sodium 135 L Potassium Chloride Carbon Dioxide BUN 6 L Creatinine 0.3 L Glucose POC Glucose Lactic Acid Calcium 8.2 L Magnesium Iron TIBC Ferritin AST ALT Lactate Dehydrogenase Troponin T C-Reactive Protein Total Protein Albumin 2.1 L Prealbumin Cholesterol LDL Cholesterol Direct HDL Cholesterol Urine WBC (Auto) Vancomycin Trough Coronavirus (PCR) Crossmatch Allied health notes reviewed: nursing
[2019-08-16] MEDS: FOLIC ACID 1 MG TAB PO SCH (09:29)
[2019-08-16] MEDS: FAMOTIDINE 20 MG TAB PO SCH ×2 (09:29→22:07)
[2019-08-16] MEDS: levETIRAcetam 500 MG/5 ML ORAL LIQD FEEDTUBE SCH ×2 (09:29→22:07)
[2019-08-16] MEDS: ASPIRIN 81 MG TAB CHEW PO SCH (09:29)
[2019-08-16] MEDS: ENOXAPARIN 40 MG/0.4 ML INJ SUB-Q SCH (09:29)
--- NOTE | 2019-08-16 11:55 | Progress Note ---
Assessment and Plan Assessment and plan: 69-year-old male with PMH of CVA with RHP, HTN, DM2, SCZ, Dementia, Alcohol use D/o, Seizure D/O, presents to the emergency department via EMS from home with progressive SOB and impending respiratory failure with an unresponsive episode. Apparently the patient was witnessed becoming unresponsive by family members. Reportedly, pt had just gotten a high dose of Hyoscamine When EMS got there, the patient was agonal breathing and had a faint pulse. No CPR was indicated per EMS. PT was intubated and received some IV fluid en route to the hospital. THe pt was under hospice- [facility] and reportedly the patient is a DNR according to the family but they were unable to provide the appropriate paperwork and to explain why the pt was discharged from hospice. The patient is bed bound and has LE atrophy and contractures. He also has history of cervical spine fracture, allegedly a fracture of some level of his back. A reliable HPI cannot be obtained from the pt due to mechanical ventilation. In the ED, pt was found to have bilateral PNA on CXR and WBC was 30K. --COVid positive pneumonia with severe sepsis ?abscess No need for drianage per ID/pULM Received Plaquenil and cefepime, monitor off antibiotics ID following --Septic shock: Improving hemodynamics was treated with Pressors Persistent hypotension, -- Acute respiratory Failure with Hypoxia Due to bilateral PNA with COVID 19 infection. On ventilatory support, unable to wean Pulmonary critical following --COPD with exacerbation Likely due to COVID-19 pneumonia Continue scheduled nebs --Anemia, Microcytic persistent s/p total 3 unit of PRBC, today Hb today 9.1 --Pressure Ulcers: concerning for osteomylitis POA/ Scrotal ulcers buttocks, right lateral foot area wound and supportive care --Hyponatremia, resolved --DM type 2: Accu-Chek SCC tube feeding, insulin as needed --h/o HTN Essential, now hypotensive On Levophed --Seizure D/o/CVA/immobility/BIpolar D/o/SCZ Seizure precautions, antiepileptic medications --Severe PCM, TF supportive care, dietary following patient is DNR- Called and verified information Very poor prognosis, Recommend hospice 07/04: COVID +ve, start on plaquinil, called no answer 07/05: transfuse one unit PRBC, Hb dropped to ~6, called and updated 07/06; H&H stable, serum chemistry improved. On mechanical ventilation with high inflammatory markers. Continue Plaquenil and empiric antibiotics. ID following, prognosis remains guarded and extremely poor. 07/07: On mechanical ventilation with high inflammatory markers. Continue Plaquenil and empiric antibiotics. ID following, prognosis remains guarded and extremely poor. 07/08: Called today and verified the CODE STATUS. Patient remains DNR. He is still intubated, with poor prognosis. Continue to follow inflammatory markers. 07/09 wean off from vent as tolerated, completed empiric antibiotic and Plaquenil 07/10 wean off from vent as tolerated. poor prognosis 07/11 hb 6.7 today, transfuse one PRBC. wean off from vent as tolerated. poor prognosis 07/12 remains critically on vent. Hb 6.9 07/13 Hb dropped to 6.6, transfuse 1 unit of PRBC, remains on vent critically ill Hypotensive, fluid bolus, if no improvement start Levophed 07/14; remains anemic with hemoglobin of 6.8, received total 3 units of PRBC Additional 1 unit of PRBC today, stool for occult blood to rule out GI causes Started back on Levophed due to hypotension 07/15; patient remains critically ill, hypotensive on Levophed 07/16: Today remains intubated on vent, persistent hypotension on Levophed 07/17; clinically no change, pressor dependent[on Levophed] DNR status 07/18: Patient remains hypotensive requiring Levophed, intubated on vent Unable to wean, critically ill. DNR 07/20/2019 Patient remains hypotensive requiring Levophed, intubated on vent. Patient currently with AC mode ventilation, rate 20, tidal volume 500, FiO2 40% and PEEP 6. Patient is a poor prognosis and apparently was on hospice recently. 07/21/2019. Patient with PEG tube that was clogged yesterday. surgery evaluated the patient and noted Very long PEG tubing with thick material inside. The entire tube was stripped and a large amount of formed tube feed was expressed. The tube was then flushed with sprite and flushed easily. Tube clamped. Patient currently with AC mode ventilation, rate 20, tidal volume 500, FiO2 40% and PEEP 6. Patient is a poor prognosis and apparently was on hospice recently. 07/22/2019. Patient currently with AC mode ventilation, rate 20, tidal volume 500, FiO2 30% and PEEP 6. Patient on sedation with fentanyl drip. Continue Levophed to maintain MAP greater than 65. Patient is a poor prognosis and apparently was on hospice recently. 07/23/2019. Patient currently with AC mode ventilation, rate 20, tidal volume 500, FiO2 30% and PEEP 6. Patient on sedation with fentanyl drip. Continue Levophed to maintain MAP greater than 65. Patient is a poor prognosis and apparently was on hospice recently. 07/24/2019 Patient with Covid-19 infection with pneumonia, acute respiratory failure, intubated on ventilator. No more fever. Continue current management. 07/25/2019 Patient with Covid-19 infection with pneumonia, acute respiratory failure, intubated on ventilator. fever is now resolved. Sedated with propofol 07/26/2019 Patient with covid-19 infection. Still intubated, on vent. 07/27/2019 Patient with Covid-19. he is still critically ill. patient has DNR order. 07/28/2019 Patient with Covid-19 infection. Will repeat labs today. Surgeon consulted for tracheostomy. 07/29/2019 Patient with Covid-19. hypokalemia yesterday, replaced. Will recheck labs in am. 07/30/2019 patient with Covid-19 infection with acute respiratory failure. He is intubated on ventilator. has hypokalemia. replace and recheck BMP in am. patient has UTI, started on Cefepime. 07/31/2019. patient with Covid-19 infection with acute respiratory failure. He is intubated on ventilator. Repeat chest x-ray reveals decreased infiltrates. urology consultation and wound care consult per ID. Follow-up urine and blood culture. Tracheostomy per surgery. 08/01/2019. patient with Covid-19 infection with acute respiratory failure. He is intubated on ventilator. Patient currently with PSV trials. Pressure support 18/PEEP 6. FiO2 30%. Tracheostomy to be placed per surgery wound COVID testing negative. 08/02/2019. Patient with COVID-19 infection and acute respiratory failure on mechanical ventilation. Continue with PSVT trials with pressure support increased to 20. Follow-up serial chest x-ray. Continue Fentanyl infusion and wean sedation as tolerated. Continue daily spontaneous breathing trials. 08/03/2019. Patient with COVID-19 infection and acute respiratory failure on mechanical ventilation. Continue with PSV trials with pressure support increased to 20. Follow-up serial chest x-ray. Continue Fentanyl infusion and wean sedation as tolerated. Continue daily spontaneous breathing trials. 08/04/2019. Patient with COVID-19 infection and acute respiratory failure on mechanical ventilation. Continue with PSV trials 14/6, FiO2 30%. Continue Fentanyl infusion and wean sedation as tolerated. Continue daily spontaneous breathing trials. Tracheostomy placement to be scheduled when COVID testing is negative per surgery. Monitor off antibiotics per ID recommendations 08/05/2019. Patient with COVID-19 infection and acute respiratory failure on mechanical ventilation. Patient currently on AC mode, rate 14, tidal volume 500, FiO2 30% and PEEP of 6. Continue PSV trials as tolerated. Tracheostomy placement to be scheduled when COVID testing is negative per surgery. Monitor off antibiotics per ID recommendations. 08/06/2019. Patient with COVID-19 infection and acute respiratory failure on mechanical ventilation. Patient currently on AC mode, rate 14, tidal volume 500, FiO2 30% and PEEP of 6. Continue PSV trials as tolerated. Tracheostomy placement to be scheduled when COVID testing is negative per surgery. ID restarted antibiotics with cefepime 2 g IV every 8 hours to cover for presumed Pseudomonas pneumonia. Follow-up chest x-ray and blood cultures. Repeat COVID testing 07/28 and positive. Repeat test tomorrow. 08/07/19 Patient with Covid-19, acute respiratory failure. He is still intubated on mechanical ventilator. For tracheostomy when Covid-19 test negative. Still having fever. Leukocytosis worse today, WBC 30.3. For CT Chest, Abdomen. 08/08/19 patient with Covid-19, acute respiratory failure. He is still critically ill, intubated. He is for tracheostomy after Covid-19 test negative. Fever improving. Temp 99.[address] Chest and Abdomen done yesterday pending. 08/09/2019 patient with Covid-19 infection, acute resp failure. Still intubated on ventilator. Fever of 100.3 this morning. I discussed with his Nurse 08/10/2019 Patient with Covid-19 infection. acute respirator failure. patient still in critical condition, intubated. 08/11/2019 Patient with Covid-19 infection, acute resp failure. He is still intubated on vent. 08/12/2019 Patient with Covid-19 infection, acute resp failure. He is still intubated on vent. Discussed with yesterday and gave update. Covid-19 test done 08/09 still positive. 08/13/2019 Patient with Covid-19 infection, acute resp failure. He is still intubated on vent. Discussed with 08/10 and gave update. Covid-19 test done 08/09 still positive. Fever of 101.8 last night 08/14/19: Remains on full ventilatory support. No clinical change 08/14: Remains in full ventilatory support. Replace electrolytes, awaiting Negative covid testing to be able to do Trach and Peg. Per ID Anticipate to d/c on zosyn 4.5 gm IV q 8 hour for 3 weeks until 08/27/2019 to cover for lung abscess and sacral wound infection/osteomyelitis, I am holding off 6 weeks treatment for osteomyelitis as possibility of flap/healing is unlikely. 08/15: No clinical change. Remains on full ventilatory support. Discussed with consulting physicians. We will continue to wean as tolerated. Awaiting negative COVID test prior to trach and PEG. Continue intermittent labs monitor hemoglobin. Platelets continues to rise. This could be a reactive reaction. The high probability of a clinically significant, sudden or life threatening deterioration of the [respiratory, CVS, RIGGER APPRENTICE] system(s) required my full and direct attention, intervention and personal management. The aggregate critical care time was [35] minutes. This time is in addition to time spent performing reported procedures but includes the following: [x] Data Review and interpretation [x] Patient assessment and monitoring of vital signs [x] Documentation [x] Medication orders and management History Interval history: Patient with Covid-19 infection Still intubated No clinical change Hospitalist Physical - Physical exam Narrative exam: GEN: Not in acute distress, intubated HEENT: Normocephalic, atraumatic, Neck: supple, No JVD Lungs: Bilateral crackles, heart;S1 and S2 reg, no murmurs, rubs or gallop Abd:soft, non tender, non distended, normal bowel sounds,PEG tube Ext: No edema, no clubbing, no cyanosis, Neuro: Intubated, on ventilator,sedated - Constitutional Vitals: Temp Pulse Resp BP Pulse Ox 98.5 F 90 19 164/89 100 08/16/19 07:00 08/16/19 08:00 08/16/19 07:00 08/16/19 08:00 08/16/19 08:00 General appearance: Present: other (Orally intubated on vent) HEART Score - HEART Score Troponin: Troponin T 0.013 ng/mL (0.00-0.029) 07/04/19 07:05 Results - Labs CBC & Chem 7: 08/16/19 05:00 08/16/19 05:00 Labs: Laboratory Last Values WBC 13.3 K/mm3 (4.5-11.0) H 08/16/19 05:00 RBC 2.87 M/mm3 (3.65-5.03) L 08/16/19 05:00 Hgb 8.1 gm/dl (11.8-15.2) L 08/16/19 05:00 Hct 24.9 % (35.5-45.6) L 08/16/19 05:00 MCV 87 fl (84-94) 08/16/19 05:00 MCH 28 pg (28-32) 08/16/19 05:00 MCHC 32 % (32-34) 08/16/19 05:00 RDW 18.7 % (13.2-15.2) H 08/16/19 05:00 Plt Count 962 K/mm3 (140-440) H 08/16/19 05:00 Lymph % (Auto) 4.9 % (13.4-35.0) L 07/19/19 08:45 Foster % (Auto) 12.2 % (0.0-7.3) H 07/22/19 05:38 Eos % (Auto) 1.0 % (0.0-4.3) 07/19/19 08:45 Baso % (Auto) 0.5 % (0.0-1.8) 07/19/19 08:45 Lymph # 0.8 K/mm3 (1.2-5.4) L 07/19/19 08:45 Foster # 1.5 K/mm3 (0.0-0.8) H 07/22/19 05:38 Eos # 0.2 K/mm3 (0.0-0.4) 07/19/19 08:45 Baso # 0.1 K/mm3 (0.0-0.1) 07/19/19 08:45 Add Manual Diff Complete 08/08/19 04:41 Total Counted 100 08/08/19 04:41 Seg Neutrophils % 72.8 % (40.0-70.0) H 07/22/19 05:38 Seg Neuts % (Manual) 90.0 % (40.0-70.0) H 08/08/19 04:41 Band Neutrophils % 0 % 08/08/19 04:41 Lymphocytes % (Manual) 3.0 % (13.4-35.0) L 08/08/19 04:41 Reactive Lymphs % (Man) 0 % 08/08/19 04:41 Monocytes % (Manual) 6.0 % (0.0-7.3) 08/08/19 04:41 Eosinophils % (Manual) 1.0 % (0.0-4.3) 08/08/19 04:41 Basophils % (Manual) 0 % (0.0-1.8) 08/08/19 04:41 Metamyelocytes % 0 % 08/08/19 04:41 Myelocytes % 0 % 08/08/19 04:41 Promyelocytes % 0 % 08/08/19 04:41 Blast Cells % 0 % 08/08/19 04:41 Nucleated RBC % Not Reportable 08/08/19 04:41 Seg Neutrophils # 9.2 K/mm3 (1.8-7.7) H 07/22/19 05:38 Seg Neutrophils # Man 19.9 K/mm3 (1.8-7.7) H 08/08/19 04:41 Band Neutrophils # 0.0 K/mm3 08/08/19 04:41 Lymphocytes # (Manual) 0.7 K/mm3 (1.2-5.4) L 08/08/19 04:41 Abs React Lymphs (Man) 0.0 K/mm3 08/08/19 04:41 Monocytes # (Manual) 1.3 K/mm3 (0.0-0.8) H 08/08/19 04:41 Eosinophils # (Manual) 0.2 K/mm3 (0.0-0.4) 08/08/19 04:41 Basophils # (Manual) 0.0 K/mm3 (0.0-0.1) 08/08/19 04:41 Metamyelocytes # 0.0 K/mm3 08/08/19 04:41 Myelocytes # 0.0 K/mm3 08/08/19 04:41 Promyelocytes # 0.0 K/mm3 08/08/19 04:41 Blast Cells # 0.0 K/mm3 08/08/19 04:41 WBC Morphology Not Reportable 08/08/19 04:41 Hypersegmented Neuts Not Reportable 08/08/19 04:41 Hyposegmented Neuts Not Reportable 08/08/19 04:41 Hypogranular Neuts Not Reportable 08/08/19 04:41 Smudge Cells Not Reportable 08/08/19 04:41 Toxic Granulation Not Reportable 08/08/19 04:41 Toxic Vacuolation Not Reportable 08/08/19 04:41 Dohle Bodies Not Reportable 08/08/19 04:41 Pelger-Huet Anomaly Not Reportable 08/08/19 04:41 Mendy Rods Not Reportable 08/08/19 04:41 Platelet Estimate Consistent w auto 08/08/19 04:41 Clumped Platelets Not Reportable 08/08/19 04:41 Plt Clumps, EDTA Not Reportable 08/08/19 04:41 Large Platelets Not Reportable 08/08/19 04:41 Giant Platelets Not Reportable 08/08/19 04:41 Platelet Satelliting Not Reportable 08/08/19 04:41 Plt Morphology Comment Not Reportable 08/08/19 04:41 RBC Morphology Not Reportable 08/08/19 04:41 Dimorphic RBCs Not Reportable 08/08/19 04:41 Polychromasia Not Reportable 08/08/19 04:41 Hypochromasia Few 08/08/19 04:41 Poikilocytosis Not Reportable 08/08/19 04:41 Anisocytosis Rare 08/08/19 04:41 Microcytosis Rare 08/08/19 04:41 Macrocytosis Not Reportable 08/08/19 04:41 Spherocytes Not Reportable 08/08/19 04:41 Pappenheimer Bodies Not Reportable 08/08/19 04:41 Sickle Cells Not Reportable 08/08/19 04:41 Target Cells Not Reportable 08/08/19 04:41 Tear Drop Cells Not Reportable 08/08/19 04:41 Ovalocytes Rare 08/08/19 04:41 Stomatocytes Few 08/01/19 04:57 Helmet Cells Not Reportable 08/08/19 04:41 [place] Bodies Not Reportable 08/08/19 04:41 [place] Rings Not Reportable 08/08/19 04:41 [place] Cells Not Reportable 08/08/19 04:41 Bite Cells Not Reportable 08/08/19 04:41 Crenated Cell Not Reportable 08/08/19 04:41 Elliptocytes Not Reportable 08/08/19 04:41 Acanthocytes (Spur) Not Reportable 08/08/19 04:41 Rouleaux Not Reportable 08/08/19 04:41 Hemoglobin C Crystals Not Reportable 08/08/19 04:41 Schistocytes Rare 08/08/19 04:41 Malaria parasites Not Reportable 08/08/19 04:41 Jeevan Bodies Not Reportable 08/08/19 04:41 Hem Pathologist Commnt No 08/08/19 04:41 PT 16.0 Sec. (12.2-14.9) H 07/03/19 22:20 INR 1.26 (0.87-1.13) H 07/03/19 22: D-Dimer 1808.06 ng/mlDDU (0-234) H 08/07/19 10:24 ABG pH 7.408 pH Units (7.350-7.450) 08/13/19 17:10 ABG pCO2 46.2 mm Hg 08/13/19 17:10 ABG pO2 105.0 mm Hg (80.0-90.0) H 08/13/19 17:10 ABG HCO3 28.5 mmol/L (20.0-26.0) H 08/13/19 17:10 ABG O2 Saturation 97.8 % (95.0-99.0) 08/13/19 17:10 ABG O2 Content 10.8 (0.0-44) 08/13/19 17:10 ABG Base Excess 3.5 mmol/L (-2.0-3.0) H 08/13/19 17:10 ABG Hemoglobin 7.8 gm/dl (14.0-18.0) L 08/13/19 17:10 ABG Carboxyhemoglobin 1.6 % (0.0-5.0) 08/13/19 17:10 ABG Methemoglobin 0.4 % (0.0-1.5) 08/13/19 17:10 Oxyhemoglobin 95.8 % (95.0-99.0) 08/13/19 17:10 FiO2 30 % 08/13/19 17:10 Sodium 135 mmol/L (137-145) L 08/16/19 05:00 Potassium 4.1 mmol/L (3.6-5.0) 08/16/19 05:00 Chloride 100.7 mmol/L (98-107) 08/16/19 05:00 Carbon Dioxide 27 mmol/L (22-30) 08/16/19 05:00 Anion Gap 11 mmol/L 08/16/19 05:00 BUN 6 mg/dL (9-20) L 08/16/19 05:00 Creatinine 0.3 mg/dL (0.8-1.5) L 08/16/19 05:00 Estimated GFR > 60 ml/min 08/16/19 05:00 BUN/Creatinine Ratio 20 % 08/16/19 05:00 Glucose 96 mg/dL (75-100) 08/16/19 05:00 POC Glucose 96 (70-105) 08/16/19 06:44 Osmolality 268 Mosm/kg 07/05/19 04:00 Lactic Acid 3.30 mmol/L (0.7-2.0) H* 07/04/19 07:05 Uric Acid 7.2 mg/dL (3.5-7.6) 07/05/19 04:00 Calcium 8.2 mg/dL (8.4-10.2) L 08/16/19 05:00 Phosphorus 3.60 mg/dL (2.5-4.5) 07/05/19 04:00 Magnesium 1.50 mg/dL (1.7-2.3) L 08/15/19 06:10 Iron 9 ug/dL (49-181) L 07/04/19 07:05 TIBC 97 mcg/dL (250-450) L 07/04/19 07:05 Ferritin 360.4 ng/mL (13.0-400.0) 08/07/19 10:24 Total Bilirubin 0.20 mg/dL (0.1-1.2) 08/16/19 05:00 AST 20 units/L (5-40) 08/16/19 05:00 ALT 8 units/L (7-56) 08/16/19 05:00 Alkaline Phosphatase 77 units/L (35-129) 08/16/19 05:00 Ammonia 35.0 umol/L (25-60) 07/03/19 23:58 Lactate Dehydrogenase 144 units/L (91-180) 08/07/19 10:24 Troponin T 0.013 ng/mL (0.00-0.029) 07/04/19 07:05 C-Reactive Protein 11.10 mg/dL (0.00-1.30) H 08/07/19 10:24 Total Protein 7.0 g/dL (6.3-8.2) 08/16/19 05:00 Albumin 2.1 g/dL (3.9-5) L 08/16/19 05:00 Albumin/Globulin Ratio 0.4 % 08/16/19 05:00 Prealbumin 0.037 g/L (0.200-0.400) L 07/31/19 04:42 Triglycerides 33 mg/dL (2-149) 07/03/19 19:57 Cholesterol 47 mg/dL (50-199) L 07/03/19 19:57 LDL Cholesterol Direct 25 mg/dL (50-130) L 07/03/19 19:57 HDL Cholesterol 20 mg/dL (40-59) L 07/03/19 19:57 Cholesterol/HDL Ratio 2.35 % 07/03/19 19:57 Procalcitonin 0.96 ng/mL (<0.15) 08/07/19 10:24 TSH 2.170 mlU/mL (0.270-4.200) 07/03/19 22:20 Total Cortisol 28.0 mcg/dL () 07/05/19 10:11 Urine Color Yellow (Yellow) 07/29/19 11:57 Urine Turbidity Clear (Clear) 07/29/19 11:57 Urine pH 7.0 (5.0-7.0) 07/29/19 11:57 Ur Specific [place] 1.012 (1.003-1.030) 07/29/19 11:57 Urine Protein <15 mg/dl mg/dL (Negative) 07/29/19 11:57 Urine Glucose (UA) Neg mg/dL (Negative) 07/29/19 11:57 Urine Ketones Neg mg/dL (Negative) 07/29/19 11:57 Urine Blood Sm (Negative) 07/29/19 11:57 Urine Nitrite Neg (Negative) 07/29/19 11:57 Urine Bilirubin Neg (Negative) 07/29/19 11:57 Urine Urobilinogen 4.0 mg/dL (<2.0) 07/29/19 11:57 Ur Leukocyte Esterase Mod (Negative) 07/29/19 11:57 Urine WBC (Auto) 63.0 /HPF (0.0-6.0) H 07/29/19 11:57 Urine RBC (Auto) 14.0 /HPF (0.0-6.0) 07/29/19 11:57 U Epithel Cells (Auto) < 1.0 /HPF (0-13.0) 07/29/19 11:57 Urine Bacteria (Auto) 1+ /HPF (Negative) 07/29/19 11:57 Urine WBC Clumps Few /HPF 07/03/19 21:13 Urine Mucus Few /HPF 07/03/19 21:13 Urine Osmolality 293 Mosm/kg 07/05/19 08:15 Vancomycin Trough 23.2 ug/mL (5.0-20.0) H 07/05/19 17:54 Urine Opiates Screen Presumptive negative 07/03/19 21:13 Urine Methadone Screen Presumptive negative 07/03/19 21:13 Ur Barbiturates Screen Presumptive negative 07/03/19 21:13 Ur Phencyclidine Scrn Presumptive negative 07/03/19 21:13 Ur Amphetamines Screen Presumptive negative 07/03/19 21:13 U Benzodiazepines Scrn Presumptive negative 07/03/19 21:13 Urine Cocaine Screen Presumptive negative 07/03/19 21:13 U Marijuana (THC) Screen Presumptive negative 07/03/19 21:13 Drugs of Abuse Note Disclamer 07/03/19 21:13 Plasma/Serum Alcohol < 0.01 % (0-0.07) 07/03/19 23:58 Coronavirus (PCR) Positive (Negative) A 08/10/19 Unknown Hepatitis A IgM Ab Non-reactive (NonReactive) 08/07/19 10:24 Hep Bs Antigen Non-reactive (Negative) 08/07/19 10:24 Hep B Core IgM Ab Non-reactive (NonReactive) 08/07/19 10:24 Hepatitis C Antibody Non-reactive (NonReactive) 08/07/19 10:24 Blood Type B POSITIVE 08/09/19 17:59 Antibody Screen Negative 08/09/19 17:59 Crossmatch See Detail 08/09/19 17:59 Wright/IV: Voiding Method Indwelling Catheter IV Catheter Type [Left Triple Lumen Cath Internal Jugular] IV Catheter Type [Left INT / Saline Lock Antecubital] IV Catheter Type [Left Forearm Peripheral IV ] IV Catheter Type [Left Upper Mid-line arm] IV Catheter Type [Right INT / Saline Lock Forearm] IV Catheter Type [Right Hand] INT / Saline Lock IV Catheter Type [Right CVL Femoral] IV Catheter Type [Left INT / Saline Lock External Jugular] Active Medications - Current Medications Current Medications: Generic Name Dose Route Start Last Admin Trade Name Freq PRN Reason Stop Dose Admin Acetaminophen 650 mg 07/04/19 04:24 08/05/19 17:40 Tylenol TN 650 mg Q6H PRN Administration Pain MILD(1-3)/Fever >100.5/MURO Acetaminophen 650 mg 07/10/19 04:00 08/12/19 21:05 Tylenol PO 650 mg Q6HR PRN Administration Pain, Mild (1-3) FEVER Lipase/Protease/Amylase 1 each 07/04/19 10:04 08/11/19 06:[address] 10,500 Unit FEEDTUBE 1 each PRN PRN Administration For Clogged Feeding Tube Aspirin 81 mg 07/05/19 10:00 08/16/19 09:29 Baby Aspirin PO 81 mg QDAY TAMMIE Administration Dextrose 50 ml 07/04/19 06:54 D50w (25gm) Syringe IV Q30MIN PRN Hypoglycemia Protocol Docusate Sodium 100 mg 08/14/19 14:00 Colace PO BID PRN CONSTIPATION Enoxaparin Sodium 40 mg 07/24/19 10:00 08/16/19 09:29 Enoxaparin SUB-Q 40 mg QDAY@1000 TAMMIE Administration Famotidine 20 mg 07/23/19 22:00 08/16/19 09:29 Pepcid PO 20 mg BID TAMMIE Administration Fentanyl 50 mcg 07/21/19 15:18 08/09/19 17:44 Sublimaze IV 50 mcg Q10MIN PRN Administration ANALGESIA Fentanyl 25 mcg 08/03/19 11:00 08/15/19 11:52 Duragesic TD 25 mcg Q3D [facility] Administration Folic Acid 1 mg 07/05/19 10:00 08/16/19 09:29 Folvite PO 1 mg QDAY TAMMIE Administration Glycopyrrolate 1 mg 08/16/19 14:00 Robinul PO TID TAMMIE Hydrophilic Ointment 1 applic 07/03/19 19:56 07/05/19 17:42 Vaseline Lip Therapy TP 1 applic Q2HR PRN Administration Dry Lips Norepinephrine 4 mg in 250 mls @ 7.5 mls/hr 07/03/19 23:00 07/20/19 01:00 Levophed Drip 4 Mg/Ns 250 Ml IV Infused TITR TAMMIE Titration Protocol 2 MCG/MIN Piperacillin Sod/Tazobactam Sod 4.5 gm in 100 mls @ 200 mls/hr 08/06/19 12:00 08/16/19 04:52 Zosyn/Ns 4.5gm/100ml IV 08/27/19 11:59 200 mls/hr Q6HR [facility] Administration Protocol Insulin Human Lispro 0 unit 07/07/19 12:00 08/16/19 06:43 Humalog SUB-Q Not Given Q6HR [facility] Protocol Levetiracetam 750 mg 07/06/19 11:00 08/16/19 09:29 Keppra FEEDTUBE 750 mg Q12HR TAMMIE Administration Metoprolol Tartrate 5 mg 07/12/19 15:08 08/11/19 14:47 Metoprolol IV 5 mg Q6HR PRN Administration Tachyarrhythmias Multi-Ingred Cream/Lotion/Oil/Oint 1 applic 07/03/19 19:56 07/05/19 13:19 Artificial Tears Ophth Oint OU 1 applic Q4HR PRN Administration Dry Eye(s) Naloxone HCl 0.1 mg 07/04/19 04:24 Naloxone IV Q2MIN PRN Res Rate </= 8 or 02 SAT < 92% Oxycodone/Acetaminophen 1 tab 07/19/19 14:17 08/11/19 13:06 Percocet 5/325 PO 1 tab Q4H PRN Administration Pain, Moderate (4-6) Scopolamine 1 each 07/10/19 11:00 08/15/19 10:17 Transderm-Scop TD 1 each Q3D TAMMIE Administration Simple Syrup 15 ml 07/04/19 10:04 07/10/19 21:56 Simple Syrup FEEDTUBE 15 ml PRN PRN Administration Hypoglycemia Simple Syrup 30 ml 07/04/19 10:04 Simple Syrup FEEDTUBE PRN PRN Hypoglycemia Sodium Bicarbonate 325 mg 07/04/19 10:04 07/20/19 10:20 Sodium Bicarbonate FEEDTUBE 325 mg PRN PRN Administration For Clogged Feeding Tube Sodium Chloride 10 ml 07/04/19 10:00 08/16/19 09:29 Sodium Chloride Flush Syringe 10 Ml IV 10 ml BID TAMMIE Administration Sodium Chloride 10 ml 07/04/19 04:24 Sodium Chloride Flush Syringe 10 Ml IV PRN PRN LINE FLUSH Sodium Hypochlorite 1 applic 07/10/19 14:00 08/16/19 09:30 Dakin's Half Strength TP 1 appful BID TAMMIE Administration Nutrition/Malnutrition Assess - Dietary Evaluation Nutrition/Malnutrition Findings: Nutrition Notes Start: 07/04/19 09:17 Freq: Status: Active Protocol: Document 08/15/19 08:14 LP (Rec: 08/15/19 08:16 LP [id number]) Nutrition Notes Initial or Follow up Reassessment Current Diagnosis Acute Kidney Injury,COPD, Decubitus(Pressure Ulcer), Diabetes,Hypertension Other Pertinent Diagnosis COVID-19 (+), pneu, seizures, schizophrenia, Buttock and R foot PU, Current Diet Osmolite 1.5 at 55ml/hr Labs/Tests Reviewed Pertinent Medications Reviewed Height 5 ft 11 in Weight 78.7 kg [place] Body Weight (kg) 78.18 BMI 24.2 Weight Status Overweight Subjective/Other Information Pt continues tolerating TF at goal rate. Percent of energy/protein needs met: 97%/75% Burn Absent Trauma Absent Current % PO Negligible Minimum of two criteria No physical signs of malnutrition #2 Nutrition Diagnosis Increased nutrient needs ( specify in comment below) Diagnosis Progress(for reassessment Continues documentation) #1 Nutrition Diagnosis Inadequate oral intake Diagnosis Progress(for reassessment Continues documentation) Is patient on ventilator? Yes Is Patient Ambulatory and/or Out of Bed No REE-([facility]-confined to bed) [phone] Calculation Used for Recommendations Tu Dominguezgaurang Additional Notes Protein: 110-184 (1.2-2g/kg) Fluid: 1 ml/kcal or per MD Nutrition Intervention Change Diet Order: Continue TF Nutrition Support: Osmolite 1.5 at 55ml/hr Flush 150ml q4h Kcal 1,980 Protein (gm) 83 Fluid (mL) 1,006 Goal #1 TF tolerance Goal #2 TF to meet at least 75% of energy and protein needs Anticipated Discharge Needs: unable to determine at this time Follow-Up By: 08/22/19 Additional Comments Follow for stable TF
--- NOTE | 2019-08-16 13:36 | Progress Note ---
Assessment and Plan Cultures: 07/03/2019 urine culture: No growth 07/03/2019 Tracheal aspirate: E.coli 07/29/2019 urine culture: neg 07/30/2019 blood culture: no growth tracheal asp + Pseudomonas 08/06/2019 blood culture: no growth 08/09/2019 Wound MDR Enterobacter A/P: 69-year-old male with CVA, hypertension, dementia, schizophrenia, alcohol use disorder was admitted to the emergency room after being brought in by EMS with progressive shortness of breath and unresponsiveness. He was noted to have agonal breathing and a faint pulse requiring CPR. It seems patient was on hospice recently, prior to admission. #Shock, likely septic: shock resolved, remains off pressors. still fever, leukocytosis better ? bacterial pneumonia vs sacral decubitus infection. Very high procal=24 on 07/29 most recent 0.5 #Nonresolving pneumonia/Cavitary pneumonia: ? abscess. Sputum +Pseudomonas. CT shows RUL pneumonia with 2.4 cm cavity and LLL pneumonia with moderate left pleu ral effusion. No need for thoracentesis per Pulm #Penile/scrotal and buttocks wounds: ?cellulitis #Sacral decubitus: worsening on last exam ? necrotic. Evaluated for surgery, no indications for intervention. 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 bleeding overnight s/p surgical management bedside, 08/09/2019 Wound MDR Enterobacter likely a colonizer (superficial wound cx) #UTI: per documentation initial carroll placed on 07/03, exchanged on 07/31. #History of Severe COVID-19 disease and pneumonia: Markers improving. Completed Plaquenil. Completed Ceftriaxone for treatment E.coli in tracheal aspirate. rep eat COVID 08/10/2019 positive. #Acute respiratory failure: on mechanical ventilation. #Transaminitis: Likely from COVID-19, shock #Multiple skin tears documented on admission #Anemia: from sacral wound bleeding Recs: Check blood cx today, repeat CXR - persistent fever Check CBC with diff ? increased eosinophils ? drug fever Continue zosyn IV 4.5 g IV q 8 hour Off loading Anticipate to d/c on zosyn 4.5 gm IV q 8 hour for 3 weeks until 08/27/2019 to cover for lung abscess and sacral wound infection/osteomyelitis, I am holding off 6 weeks treatment for osteomyelitis as possibility of flap/healing is unlikely. guarded prognosis Padmaja Sagastume Garcia, MD Infectious Diseases [employer] [facility] ([facility]) M [phone] O [phone] Subjective Date of service: 08/16/19 Principal diagnosis: Bilateral pneumonia, severe sepsis with septic shock, encephalopathy Interval history: Remains intubated, tmax 100.7, alert, intubated Objective - Exam Narrative Exam: General appearance: sedated on the vent Eyes: anicteric sclerae, moist conjunctivae; no lid-lag; PERRLA HENT: Atraumatic; oropharynx ETT with thick yellow secretion, NGT Lungs: madelin rhonchi per RT CV: RRR Abdomen: Soft, non-tender Extremities: marked madelin arm and leg edema Skin: No rash. Genital: penile/scrotal ulcer with scab covered w dressings Psych: no agitated Neuro: sedated Carroll - Constitutional Vitals: Vital Signs Temp Pulse Resp BP Pulse Ox 98.5 F 104 H 16 150/78 98 08/16/19 07:00 08/16/19 13:00 08/16/19 13:00 08/16/19 13:00 08/16/19 13:00 Temperature -Last 24 Hours Temperature 98.5 F Temperature 100.7 F Temperature 100.7 F Temperature 100.1 F Temperature 99.8 F Temperature 98.9 F - Labs CBC & Chem 7: 08/16/19 05:00 08/16/19 05:00 Labs: Abnormal lab results 08/16/19 08/16/19 08/16/19 Range/Units 00:05 05:00 05:00 WBC 13.3 H (4.5-11.0) K/mm3 RBC 2.87 L (3.65-5.03) M/mm3 Hgb 8.1 L (11.8-15.2) gm/dl Hct 24.9 L (35.5-45.6) % RDW 18.7 H (13.2-15.2) % Plt Count 962 H (140-440) K/mm3 Sodium 135 L (137-145) mmol/L BUN 6 L (9-20) mg/dL Creatinine 0.3 L (0.8-1.5) mg/dL POC Glucose 111 H (70-105) Calcium 8.2 L (8.4-10.2) mg/dL Albumin 2.1 L (3.9-5) g/dL
--- NOTE | 2019-08-16 14:39 | XRay Report ---
CHEST 1 VIEW INDICATION / CLINICAL INFORMATION: persis fever worsening pna. COMPARISON: 08/09/2019 FINDINGS: SUPPORT DEVICES: Stable, satisfactory device positioning. HEART / MEDIASTINUM: No significant abnormality. LUNGS / PLEURA: Bilateral pulmonary parenchymal opacities are unchanged. No pneumothorax. ADDITIONAL FINDINGS: No significant additional findings. IMPRESSION: 1. Stable bilateral pulmonary disease. Signer Name: Vincent Cardona MD Signed: 08/16/2019 2:35 PM Workstation Name: [id number]
[2019-08-16] MEDS: GLYCOPYRROLATE 1 MG TAB PO SCH ×2 (14:58→22:07)
--- NOTE | 2019-08-16 22:24 | XRay Report ---
ABDOMEN 1 VIEW(S) INDICATION / CLINICAL INFORMATION: ng placement. COMPARISON: None available. FINDINGS: TUBES / LINES: The tip of the NG tube projects over the proximal stomach. BOWEL GAS PATTERN/EXTRALUMINAL GAS: No significant abnormality. No pneumatosis or secondary signs of free air. ADDITIONAL FINDINGS: No significant additional findings. IMPRESSION: 1. No significant abnormality. Signer Name: Julio Cohen MD Signed: 08/16/2019 10:19 PM Workstation Name: [email or web address]
[2019-08-17] MEDS: PIPERACIL/TAZOBACTA 4.5/NS 100 4.5 GM/100 ML VIAL IV SCH ×5 (01:16→18:59)
[2019-08-17] MEDS: SODIUM HYPOCHLORITE, DAKIN'S 1/2 STRENGTH (0.25%) 473 ML TOPICAL SOLN TP SCH ×3 (06:32→21:02)
--- NOTE | 2019-08-17 10:05 | Progress Note ---
Assessment and Plan Assessment and plan: 69-year-old male with PMH of CVA with RHP, HTN, DM2, SCZ, Dementia, Alcohol use D/o, Seizure D/O, presents to the emergency department via EMS from home with progressive SOB and impending respiratory failure with an unresponsive episode. Apparently the patient was witnessed becoming unresponsive by family members. Reportedly, pt had just gotten a high dose of Hyoscamine When EMS got there, the patient was agonal breathing and had a faint pulse. No CPR was indicated per EMS. PT was intubated and received some IV fluid en route to the hospital. THe pt was under [facility] and reportedly the patient is a DNR according to the family but they were unable to provide the appropriate paperwork and to explain why the pt was discharged from hospice. The patient is bed bound and has LE atrophy and contractures. He also has history of cervical spine fracture, allegedly a fracture of some level of his back. A reliable HPI cannot be obtained from the pt due to mechanical ventilation. In the ED, pt was found to have bilateral PNA on CXR and WBC was 30K. --COVid positive pneumonia with severe sepsis ?abscess No need for drianage per ID/pULM Received Plaquenil and cefepime, monitor off antibiotics ID following --Recurrent fever --Septic shock: Improving hemodynamics was treated with Pressors Persistent hypotension, -- Acute respiratory Failure with Hypoxia Due to bilateral PNA with COVID 19 infection. On ventilatory support, unable to wean Pulmonary critical following --COPD with exacerbation Likely due to COVID-19 pneumonia Continue scheduled nebs --Anemia, Microcytic persistent s/p total 3 unit of PRBC, today Hb today 9.1 --Pressure Ulcers: concerning for osteomylitis POA/ Scrotal ulcers buttocks, right lateral foot area wound and supportive care --Hyponatremia, resolved --DM type 2: Accu-Chek SCC tube feeding, insulin as needed --h/o HTN Essential, now hypotensive On Levophed --Seizure D/o/CVA/immobility/BIpolar D/o/SCZ Seizure precautions, antiepileptic medications --Severe PCM, TF supportive care, dietary following patient is DNR- Called and verified information Very poor prognosis, Recommend hospice 07/04: COVID +ve, start on plaquinil, called no answer 07/05: transfuse one unit PRBC, Hb dropped to ~6, called and updated 07/06; H&H stable, serum chemistry improved. On mechanical ventilation with high inflammatory markers. Continue Plaquenil and empiric antibiotics. ID following, prognosis remains guarded and extremely poor. 07/07: On mechanical ventilation with high inflammatory markers. Continue Plaquenil and empiric antibiotics. ID following, prognosis remains guarded and extremely poor. 07/08: Called today and verified the CODE STATUS. Patient remains DNR. He is still intubated, with poor prognosis. Continue to follow inflammatory markers. 07/09 wean off from vent as tolerated, completed empiric antibiotic and Plaquenil 07/10 wean off from vent as tolerated. poor prognosis 07/11 hb 6.7 today, transfuse one PRBC. wean off from vent as tolerated. poor prognosis 07/12 remains critically on vent. Hb 6.9 07/13 Hb dropped to 6.6, transfuse 1 unit of PRBC, remains on vent critically i ll Hypotensive, fluid bolus, if no improvement start Levophed 07/14; remains anemic with hemoglobin of 6.8, received total 3 units of PRBC Additional 1 unit of PRBC today, stool for occult blood to rule out GI causes Started back on Levophed due to hypotension 07/15; patient remains critically ill, hypotensive on Levophed 07/16: Today remains intubated on vent, persistent hypotension on Levophed 07/17; clinically no change, pressor dependent[on Levophed] DNR status 07/18: Patient remains hypotensive requiring Levophed, intubated on vent Unable to wean, critically ill. DNR 07/20/2019 Patient remains hypotensive requiring Levophed, intubated on vent. Patient currently with AC mode ventilation, rate 20, tidal volume 500, FiO2 40% and PEEP 6. Patient is a poor prognosis and apparently was on hospice recently. 07/21/2019. Patient with PEG tube that was clogged yesterday. surgery evaluated the patient and noted Very long PEG tubing with thick material inside. The entire tube was stripped and a large amount of formed tube feed was expressed. The tube was then flushed with sprite and flushed easily. Tube clamped. Patient currently with AC mode ventilation, rate 20, tidal volume 500, FiO2 40% and PEEP 6. Patient is a poor prognosis and apparently was on hospice recently. 07/22/2019. Patient currently with AC mode ventilation, rate 20, tidal volume 500, FiO2 30% and PEEP 6. Patient on sedation with fentanyl drip. Continue Levophed to maintain MAP greater than 65. Patient is a poor prognosis and apparently was on hospice recently. 07/23/2019. Patient currently with AC mode ventilation, rate 20, tidal volume 500, FiO2 30% and PEEP 6. Patient on sedation with fentanyl drip. Continue Levophed to maintain MAP greater than 65. Patient is a poor prognosis and apparently was on hospice recently. 07/24/2019 Patient with Covid-19 infection with pneumonia, acute respiratory failure, intubated on ventilator. No more fever. Continue current management. 07/25/2019 Patient with Covid-19 infection with pneumonia, acute respiratory failure, intubated on ventilator. fever is now resolved. Sedated with propofol 07/26/2019 Patient with covid-19 infection. Still intubated, on vent. 07/27/2019 Patient with Covid-19. he is still critically ill. patient has DNR order. 07/28/2019 Patient with Covid-19 infection. Will repeat labs today. Surgeon consulted for tracheostomy. 07/29/2019 Patient with Covid-19. hypokalemia yesterday, replaced. Will recheck labs in am. 07/30/2019 patient with Covid-19 infection with acute respiratory failure. He is intubated on ventilator. has hypokalemia. replace and recheck BMP in am. patient has UTI, started on Cefepime. 07/31/2019. patient with Covid-19 infection with acute respiratory failure. He is intubated on ventilator. Repeat chest x-ray reveals decreased infiltrates. urology consultation and wound care consult per ID. Follow-up urine and blood culture. Tracheostomy per surgery. 08/01/2019. patient with Covid-19 infection with acute respiratory failure. He is intubated on ventilator. Patient currently with PSV trials. Pressure support 18/PEEP 6. FiO2 30%. Tracheostomy to be placed per surgery wound COVID testing negative. 08/02/2019. Patient with COVID-19 infection and acute respiratory failure on mechanical ventilation. Continue with PSVT trials with pressure support increased to 20. Follow-up serial chest x-ray. Continue Fentanyl infusion and wean sedation as tolerated. Continue daily spontaneous breathing trials. 08/03/2019. Patient with COVID-19 infection and acute respiratory failure on mechanical ventilation. Continue with PSV trials with pressure support increased to 20. Follow-up serial chest x-ray. Continue Fentanyl infusion and wean sedation as tolerated. Continue daily spontaneous breathing trials. 08/04/2019. Patient with COVID-19 infection and acute respiratory failure on mechanical ventilation. Continue with PSV trials 14/6, FiO2 30%. Continue Fentanyl infusion and wean sedation as tolerated. Continue daily spontaneous breathing trials. Tracheostomy placement to be scheduled when COVID testing is negative per surgery. Monitor off antibiotics per ID recommendations 08/05/2019. Patient with COVID-19 infection and acute respiratory failure on mechanical ventilation. Patient currently on AC mode, rate 14, tidal volume 500, FiO2 30% and PEEP of 6. Continue PSV trials as tolerated. Tracheostomy placement to be scheduled when COVID testing is negative per surgery. Monitor off antibiotics per ID recommendations. 08/06/2019. Patient with COVID-19 infection and acute respiratory failure on mechanical ventilation. Patient currently on AC mode, rate 14, tidal volume 500, FiO2 30% and PEEP of 6. Continue PSV trials as tolerated. Tracheostomy placement to be scheduled when COVID testing is negative per surgery. ID restarted antibiotics with cefepime 2 g IV every 8 hours to cover for presumed Pseudomonas pneumonia. Follow-up chest x-ray and blood cultures. Repeat COVID testing 07/28 and positive. Repeat test tomorrow. 08/07/19 Patient with Covid-19, acute respiratory failure. He is still intubated on mechanical ventilator. For tracheostomy when Covid-19 test negative. Still h aving fever. Leukocytosis worse today, WBC 30.3. For CT Chest, Abdomen. 08/08/19 patient with Covid-19, acute respiratory failure. He is still critically ill, intubated. He is for tracheostomy after Covid-19 test negative. Fever improving. Temp 99.[address] Chest and Abdomen done yesterday pending. 08/09/2019 patient with Covid-19 infection, acute resp failure. Still intubated on ventilator. Fever of 100.3 this morning. I discussed with his Nurse 08/10/2019 Patient with Covid-19 infection. acute respirator failure. patient still in critical condition, intubated. 08/11/2019 Patient with Covid-19 infection, acute resp failure. He is still intubated on vent. 08/12/2019 Patient with Covid-19 infection, acute resp failure. He is still intubated on vent. Discussed with yesterday and gave update. Covid-19 test done 08/09 still positive. 08/13/2019 Patient with Covid-19 infection, acute resp failure. He is still intubated on vent. Discussed with 08/10 and gave update. Covid-19 test done 08/09 still positive. Fever of 101.8 last night 08/14/19: Remains on full ventilatory support. No clinical change 08/14: Remains in full ventilatory support. Replace electrolytes, awaiting N egative covid testing to be able to do Trach and Peg. Per ID Anticipate to d/c on zosyn 4.5 gm IV q 8 hour for 3 weeks until 08/27/2019 to cover for lung abscess and sacral wound infection/osteomyelitis, I am holding off 6 weeks treatment for osteomyelitis as possibility of flap/healing is unlikely. 08/15: No clinical change. Remains on full ventilatory support. Discussed with consulting physicians. We will continue to wean as tolerated. Awaiting negative COVID test prior to trach and PEG. Continue intermittent labs monitor hemoglobin. Platelets continues to rise. This could be a reactive reaction. 08/16: Awaiting negative COVID test for placement of trach and PEG. In the meantime we will continue aggressive attempt to wean patient. Cultures have been reviewed and discussed with infectious disease who is managing treatment at this time. Continue wound care dressing. Multiple skin tears were noted on admission will continue to follow. Patient receiving repeat chest x-ray reviewed today shows stable bilateral pulmonary disease and no acuity noted on KUB due to persistent fever ID reviewing increases acidophil wondering if there is drug fever will follow closely. Prognosis remains guarded. The high probability of a clinically significant, sudden or life threatening deterioration of the [respiratory, CVS, LENS BLOCKER] system(s) required my full and direct attention, intervention and personal management. The aggregate critical care time was [35] minutes. This time is in addition to time spent performing reported procedures but includes the following: [x] Data Review and interpretation [x] Patient assessment and monitoring of vital signs [x] Documentation [x] Medication orders and management History Interval history: Patient with Covid-19 infection Still intubated No clinical change Discussed with nursing staff patient awakens on verbal stimuli but not following commands sometimes would not. Hospitalist Physical - Physical exam Narrative exam: GEN: Not in acute distress, intubated, awakens to verbal stimuli but not following commands HEENT: Normocephalic, atraumatic, Neck: supple, No JVD Lungs: Bilateral crackles, heart;S1 and S2 reg, no murmurs, rubs or gallop Abd:soft, non tender, non distended, normal bowel sounds,PEG tube Ext: No edema, no clubbing, no cyanosis, Neuro: Intubated, on ventilator Skin: See full documentation by wound care nurse. Pain no ulcer with dressing noted. - Constitutional Vitals: Temp Pulse Resp BP Pulse Ox 98.6 F 107 H 20 157/100 100 08/17/19 08:00 08/17/19 09:11 08/17/19 09:11 08/17/19 09:11 08/17/19 09:11 General appearance: Present: other (Orally intubated on vent) HEART Score - HEART Score Troponin: Troponin T 0.013 ng/mL (0.00-0.029) 07/04/19 07:05 Results - Labs CBC & Chem 7: 08/16/19 05:00 08/16/19 05:00 Labs: Laboratory Last Values WBC 13.3 K/mm3 (4.5-11.0) H 08/16/19 05:00 RBC 2.87 M/mm3 (3.65-5.03) L 08/16/19 05:00 Hgb 8.1 gm/dl (11.8-15.2) L 08/16/19 05:00 Hct 24.9 % (35.5-45.6) L 08/16/19 05:00 MCV 87 fl (84-94) 08/16/19 05:00 MCH 28 pg (28-32) 08/16/19 05:00 MCHC 32 % (32-34) 08/16/19 05:00 RDW 18.7 % (13.2-15.2) H 08/16/19 05:00 Plt Count 962 K/mm3 (140-440) H 08/16/19 05:00 Lymph % (Auto) 4.9 % (13.4-35.0) L 07/19/19 08:45 [place] % (Auto) 12.2 % (0.0-7.3) H 07/22/19 05:38 Eos % (Auto) 1.0 % (0.0-4.3) 07/19/19 08:45 Baso % (Auto) 0.5 % (0.0-1.8) 07/19/19 08:45 Lymph # 0.8 K/mm3 (1.2-5.4) L 07/19/19 08:45 [place] # 1.5 K/mm3 (0.0-0.8) H 07/22/19 05:38 Eos # 0.2 K/mm3 (0.0-0.4) 07/19/19 08:45 Baso # 0.1 K/mm3 (0.0-0.1) 07/19/19 08:45 Add Manual Diff Complete 08/08/19 04:41 Total Counted 100 08/08/19 04:41 Seg Neutrophils % 72.8 % (40.0-70.0) H 07/22/19 05:38 Seg Neuts % (Manual) 90.0 % (40.0-70.0) H 08/08/19 04:41 Band Neutrophils % 0 % 08/08/19 04:41 Lymphocytes % (Manual) 3.0 % (13.4-35.0) L 08/08/19 04:41 Reactive Lymphs % (Man) 0 % 08/08/19 04:41 Monocytes % (Manual) 6.0 % (0.0-7.3) 08/08/19 04:41 Eosinophils % (Manual) 1.0 % (0.0-4.3) 08/08/19 04:41 Basophils % (Manual) 0 % (0.0-1.8) 08/08/19 04:41 Metamyelocytes % 0 % 08/08/19 04:41 Myelocytes % 0 % 08/08/19 04:41 Promyelocytes % 0 % 08/08/19 04:41 Blast Cells % 0 % 08/08/19 04:41 Nucleated RBC % Not Reportable 08/08/19 04:41 Seg Neutrophils # 9.2 K/mm3 (1.8-7.7) H 07/22/19 05:38 Seg Neutrophils # Man 19.9 K/mm3 (1.8-7.7) H 08/08/19 04:41 Band Neutrophils # 0.0 K/mm3 08/08/19 04:41 Lymphocytes # (Manual) 0.7 K/mm3 (1.2-5.4) L 08/08/19 04:41 Abs React Lymphs (Man) 0.0 K/mm3 08/08/19 04:41 Monocytes # (Manual) 1.3 K/mm3 (0.0-0.8) H 08/08/19 04:41 Eosinophils # (Manual) 0.2 K/mm3 (0.0-0.4) 08/08/19 04:41 Basophils # (Manual) 0.0 K/mm3 (0.0-0.1) 08/08/19 04:41 Metamyelocytes # 0.0 K/mm3 08/08/19 04:41 Myelocytes # 0.0 K/mm3 08/08/19 04:41 Promyelocytes # 0.0 K/mm3 08/08/19 04:41 Blast Cells # 0.0 K/mm3 08/08/19 04:41 WBC Morphology Not Reportable 08/08/19 04:41 Hypersegmented Neuts Not Reportable 08/08/19 04:41 Hyposegmented Neuts Not Reportable 08/08/19 04:41 Hypogranular Neuts Not Reportable 08/08/19 04:41 Smudge Cells Not Reportable 08/08/19 04:41 Toxic Granulation Not Reportable 08/08/19 04:41 Toxic Vacuolation Not Reportable 08/08/19 04:41 Dohle Bodies Not Reportable 08/08/19 04:41 Pelger-Huet Anomaly Not Reportable 08/08/19 04:41 Mendy Rods Not Reportable 08/08/19 04:41 Platelet Estimate Consistent w auto 08/08/19 04:41 Clumped Platelets Not Reportable 08/08/19 04:41 Plt Clumps, EDTA Not Reportable 08/08/19 04:41 Large Platelets Not Reportable 08/08/19 04:41 Giant Platelets Not Reportable 08/08/19 04:41 Platelet Satelliting Not Reportable 08/08/19 04:41 Plt Morphology Comment Not Reportable 08/08/19 04:41 RBC Morphology Not Reportable 08/08/19 04:41 Dimorphic RBCs Not Reportable 08/08/19 04:41 Polychromasia Not Reportable 08/08/19 04:41 Hypochromasia Few 08/08/19 04:41 Poikilocytosis Not Reportable 08/08/19 04:41 Anisocytosis Rare 08/08/19 04:41 Microcytosis Rare 08/08/19 04:41 Macrocytosis Not Reportable 08/08/19 04:41 Spherocytes Not Reportable 08/08/19 04:41 Pappenheimer Bodies Not Reportable 08/08/19 04:41 Sickle Cells Not Reportable 08/08/19 04:41 Target Cells Not Reportable 08/08/19 04:41 Tear Drop Cells Not Reportable 08/08/19 04:41 Ovalocytes Rare 08/08/19 04:41 Stomatocytes Few 08/01/19 04:57 Helmet Cells Not Reportable 08/08/19 04:41 [place] Bodies Not Reportable 08/08/19 04:41 [place] Rings Not Reportable 08/08/19 04:41 Joanne Cells Not Reportable 08/08/19 04:41 Bite Cells Not Reportable 08/08/19 04:41 Crenated Cell Not Reportable 08/08/19 04:41 Elliptocytes Not Reportable 08/08/19 04:41 Acanthocytes (Spur) Not Reportable 08/08/19 04:41 Rouleaux Not Reportable 08/08/19 04:41 Hemoglobin C Crystals Not Reportable 08/08/19 04:41 Schistocytes Rare 08/08/19 04:41 Malaria parasites Not Reportable 08/08/19 04:41 Jeevan Bodies Not Reportable 08/08/19 04:41 Hem Pathologist Commnt No 08/08/19 04:41 PT 16.0 Sec. (12.2-14.9) H 07/03/19 22:20 INR 1.26 (0.87-1.13) H 07/03/19 22:20 D-Dimer 1808.06 ng/mlDDU (0-234) H 08/07/19 10:24 ABG pH 7.408 pH Units (7.350-7.450) 08/13/19 17:10 ABG pCO2 46.2 mm Hg 08/13/19 17:10 ABG pO2 105.0 mm Hg (80.0-90.0) H 08/13/19 17:10 ABG HCO3 28.5 mmol/L (20.0-26.0) H 08/13/19 17:10 ABG O2 Saturation 97.8 % (95.0-99.0) 08/13/19 17:10 ABG O2 Content 10.8 (0.0-44) 08/13/19 17:10 ABG Base Excess 3.5 mmol/L (-2.0-3.0) H 08/13/19 17:10 ABG Hemoglobin 7.8 gm/dl (14.0-18.0) L 08/13/19 17:10 ABG Carboxyhemoglobin 1.6 % (0.0-5.0) 08/13/19 17:10 ABG Methemoglobin 0.4 % (0.0-1.5) 08/13/19 17:10 Oxyhemoglobin 95.8 % (95.0-99.0) 08/13/19 17:10 FiO2 30 % 08/13/19 17:10 Sodium 135 mmol/L (137-145) L 08/16/19 05:00 Potassium 4.1 mmol/L (3.6-5.0) 08/16/19 05:00 Chloride 100.7 mmol/L (98-107) 08/16/19 05:00 Carbon Dioxide 27 mmol/L (22-30) 08/16/19 05:00 Anion Gap 11 mmol/L 08/16/19 05:00 BUN 6 mg/dL (9-20) L 08/16/19 05:00 Creatinine 0.3 mg/dL (0.8-1.5) L 08/16/19 05:00 Estimated GFR > 60 ml/min 08/16/19 05:00 BUN/Creatinine Ratio 20 % 08/16/19 05:00 Glucose 96 mg/dL (75-100) 08/16/19 05:00 POC Glucose 138 (70-105) H 08/17/19 05:15 Osmolality 268 Mosm/kg 07/05/19 04:00 Lactic Acid 3.30 mmol/L (0.7-2.0) H* 07/04/19 07:05 Uric Acid 7.2 mg/dL (3.5-7.6) 07/05/19 04:00 Calcium 8.2 mg/dL (8.4-10.2) L 08/16/19 05:00 Phosphorus 3.60 mg/dL (2.5-4.5) 07/05/19 04:00 Magnesium 1.50 mg/dL (1.7-2.3) L 08/15/19 06:10 Iron 9 ug/dL (49-181) L 07/04/19 07:05 TIBC 97 mcg/dL (250-450) L 07/04/19 07:05 Ferritin 360.4 ng/mL (13.0-400.0) 08/07/19 10:24 Total Bilirubin 0.20 mg/dL (0.1-1.2) 08/16/19 05:00 AST 20 units/L (5-40) 08/16/19 05:00 ALT 8 units/L (7-56) 08/16/19 05:00 Alkaline Phosphatase 77 units/L (35-129) 08/16/19 05:00 Ammonia 35.0 umol/L (25-60) 07/03/19 23:58 Lactate Dehydrogenase 144 units/L (91-180) 08/07/19 10:24 Troponin T 0.013 ng/mL (0.00-0.029) 07/04/19 07:05 C-Reactive Protein 2.70 mg/dL (0.00-1.30) H 08/16/19 05:00 Total Protein 7.0 g/dL (6.3-8.2) 08/16/19 05:00 Albumin 2.1 g/dL (3.9-5) L 08/16/19 05:00 Albumin/Globulin Ratio 0.4 % 08/16/19 05:00 Prealbumin 0.037 g/L (0.200-0.400) L 07/31/19 04:42 Triglycerides 33 mg/dL (2-149) 07/03/19 19:57 Cholesterol 47 mg/dL (50-199) L 07/03/19 19:57 LDL Cholesterol Direct 25 mg/dL (50-130) L 07/03/19 19:57 HDL Cholesterol 20 mg/dL (40-59) L 04/14/20 19:57 Cholesterol/HDL Ratio 2.35 % 07/03/19 19:57 Procalcitonin 0.96 ng/mL (<0.15) 08/07/19 10:24 TSH 2.170 mlU/mL (0.270-4.200) 07/03/19 22:20 Total Cortisol 28.0 mcg/dL () 07/05/19 10:11 Urine Color Yellow (Yellow) 07/29/19 11:57 Urine Turbidity Clear (Clear) 07/29/19 11:57 Urine pH 7.0 (5.0-7.0) 07/29/19 11:57 Ur Specific [place] 1.012 (1.003-1.030) 07/29/19 11:57 Urine Protein <15 mg/dl mg/dL (Negative) 07/29/19 11:57 Urine Glucose (UA) Neg mg/dL (Negative) 07/29/19 11:57 Urine Ketones Neg mg/dL (Negative) 07/29/19 11:57 Urine Blood Sm (Negative) 07/29/19 11:57 Urine Nitrite Neg (Negative) 07/29/19 11:57 Urine Bilirubin Neg (Negative) 07/29/19 11:57 Urine Urobilinogen 4.0 mg/dL (<2.0) 07/29/19 11:57 Ur Leukocyte Esterase Mod (Negative) 07/29/19 11:57 Urine WBC (Auto) 63.0 /HPF (0.0-6.0) H 07/29/19 11:57 Urine RBC (Auto) 14.0 /HPF (0.0-6.0) 07/29/19 11:57 U Epithel Cells (Auto) < 1.0 /HPF (0-13.0) 07/29/19 11:57 Urine Bacteria (Auto) 1+ /HPF (Negative) 07/29/19 11:57 Urine WBC Clumps Few /HPF 07/03/19 21:13 Urine Mucus Few /HPF 07/03/19 21:13 Urine Osmolality 293 Mosm/kg 07/05/19 08:15 Vancomycin Trough 23.2 ug/mL (5.0-20.0) H 07/05/19 17:54 Urine Opiates Screen Presumptive negative 07/03/19 21:13 Urine Methadone Screen Presumptive negative 07/03/19 21:13 Ur Barbiturates Screen Presumptive negative 07/03/19 21:13 Ur Phencyclidine Scrn Presumptive negative 07/03/19 21:13 Ur Amphetamines Screen Presumptive negative 07/03/19 21:13 U Benzodiazepines Scrn Presumptive negative 07/03/19 21:13 Urine Cocaine Screen Presumptive negative 07/03/19 21:13 U Marijuana (THC) Screen Presumptive negative 07/03/19 21:13 Drugs of Abuse Note Disclamer 07/03/19 21:13 Plasma/Serum Alcohol < 0.01 % (0-0.07) 07/03/19 23:58 Coronavirus (PCR) Positive (Negative) A 08/10/19 Unknown Hepatitis A IgM Ab Non-reactive (NonReactive) 08/07/19 10:24 Hep Bs Antigen Non-reactive (Negative) 08/07/19 10:24 Hep B Core IgM Ab Non-reactive (NonReactive) 08/07/19 10:24 Hepatitis C Antibody Non-reactive (NonReactive) 08/07/19 10:24 Blood Type B POSITIVE 08/09/19 17:59 Antibody Screen Negative 08/09/19 17:59 Crossmatch See Detail 08/09/19 17:59 Microbiology: Microbiology 08/16/19 14:35 Peripheral/Venous Blood Culture - Preliminary Culture in Progress 08/16/19 14:35 Peripheral/Venous Blood Culture - Preliminary Culture in Progress Wright/IV: Voiding Method Indwelling Catheter IV Catheter Type [Left Triple Lumen Cath Internal Jugular] IV Catheter Type [Left INT / Saline Lock Antecubital] IV Catheter Type [Left Forearm Peripheral IV ] IV Catheter Type [Left Upper Mid-line arm] IV Catheter Type [Right INT / Saline Lock Forearm] IV Catheter Type [Right Hand] INT / Saline Lock IV Catheter Type [Right CVL Femoral] IV Catheter Type [Left INT / Saline Lock External Jugular] Active Medications - Current Medications Current Medications: Generic Name Dose Route Start Last Admin Trade Name Freq PRN Reason Stop Dose Admin Acetaminophen 650 mg 07/04/19 04:24 08/05/19 17:40 Tylenol MO 650 mg Q6H PRN Administration Pain MILD(1-3)/Fever >100.5/MURO Acetaminophen 650 mg 07/10/19 04:00 08/12/19 21:05 Tylenol PO 650 mg Q6HR PRN Administration Pain, Mild (1-3) FEVER Lipase/Protease/Amylase 1 each 07/04/19 10:04 08/11/19 06:[address] 10,500 Unit FEEDTUBE 1 each PRN PRN Administration For Clogged Feeding Tube Aspirin 81 mg 07/05/19 10:00 08/16/19 09:29 Baby Aspirin PO 81 mg QDAY TAMMIE Administration Dextrose 50 ml 07/04/19 06:54 D50w (25gm) Syringe IV Q30MIN PRN Hypoglycemia Protocol Docusate Sodium 100 mg 08/14/19 14:00 Colace PO BID PRN CONSTIPATION Enoxaparin Sodium 40 mg 07/24/19 10:00 08/16/19 09:29 Enoxaparin SUB-Q 40 mg QDAY@1000 TAMMIE Administration Famotidine 20 mg 07/23/19 22:00 08/16/19 22:07 Pepcid PO 20 mg BID TAMMIE Administration Fentanyl 50 mcg 07/21/19 15:18 08/09/19 17:44 Sublimaze IV 50 mcg Q10MIN PRN Administration ANALGESIA Fentanyl 25 mcg 08/03/19 11:00 08/15/19 11:52 Duragesic TD 25 mcg Q3D TAMMIE Administration Folic Acid 1 mg 07/05/19 10:00 08/16/19 09:29 Folvite PO 1 mg QDAY TAMMIE Administration Glycopyrrolate 1 mg 08/16/19 14:00 08/16/19 22:07 Robinul PO 1 mg TID TAMMIE Administration Hydrophilic Ointment 1 applic 07/03/19 19:56 07/05/19 17:42 Vaseline Lip Therapy TP 1 applic Q2HR PRN Administration Dry Lips Norepinephrine 4 mg in 250 mls @ 7.5 mls/hr 07/03/19 23:00 07/20/19 01:00 Levophed Drip 4 Mg/Ns 250 Ml IV Infused TITR TAMMIE Titration Protocol 2 MCG/MIN Piperacillin Sod/Tazobactam Sod 4.5 gm in 100 mls @ 200 mls/hr 08/06/19 12:00 08/17/19 06:23 Zosyn/Ns 4.5gm/100ml IV 08/27/19 11:59 200 mls/hr Q6HR TAMMIE Administration Protocol Insulin Human Lispro 0 unit 07/07/19 12:00 08/16/19 17:32 Humalog SUB-Q Not Given Q6HR [facility] Protocol Levetiracetam 750 mg 07/06/19 11:00 08/16/19 22:07 Keppra FEEDTUBE 750 mg Q12HR TAMMIE Administration Metoprolol Tartrate 5 mg 07/12/19 15:08 08/11/19 14:47 Metoprolol IV 5 mg Q6HR PRN Administration Tachyarrhythmias Multi-Ingred Cream/Lotion/Oil/Oint 1 applic 07/03/19 19:56 07/05/19 13:19 Artificial Tears Ophth Oint OU 1 applic Q4HR PRN Administration Dry Eye(s) Naloxone HCl 0.1 mg 07/04/19 04:24 Naloxone IV Q2MIN PRN Res Rate </= 8 or 02 SAT < 92% Oxycodone/Acetaminophen 1 tab 07/19/19 14:17 08/11/19 13:06 Percocet 5/325 PO 1 tab Q4H PRN Administration Pain, Moderate (4-6) Scopolamine 1 each 07/10/19 11:00 08/15/19 10:17 Transderm-Scop TD 1 each Q3D TAMMIE Administration Simple Syrup 15 ml 07/04/19 10:04 07/10/19 21:56 Simple Syrup FEEDTUBE 15 ml PRN PRN Administration Hypoglycemia Simple Syrup 30 ml 07/04/19 10:04 Simple Syrup FEEDTUBE PRN PRN Hypoglycemia Sodium Bicarbonate 325 mg 07/04/19 10:04 07/20/19 10:20 Sodium Bicarbonate FEEDTUBE 325 mg PRN PRN Administration For Clogged Feeding Tube Sodium Chloride 10 ml 07/04/19 10:00 08/16/19 09:29 Sodium Chloride Flush Syringe 10 Ml IV 10 ml BID TAMMIE Administration Sodium Chloride 10 ml 07/04/19 04:24 Sodium Chloride Flush Syringe 10 Ml IV PRN PRN LINE FLUSH Sodium Hypochlorite 1 applic 07/10/19 14:00 08/17/19 06:32 Dakin's Half Strength TP 1 appful BID TAMMIE Administration Nutrition/Malnutrition Assess - Dietary Evaluation Nutrition/Malnutrition Findings: Nutrition Notes Start: 07/04/19 09:17 Freq: Status: Active Protocol: Document 08/15/19 08:14 LP (Rec: 08/15/19 08:16 LP [id number]) Nutrition Notes Initial or Follow up Reassessment Current Diagnosis Acute Kidney Injury,COPD, Decubitus(Pressure Ulcer), Diabetes,Hypertension Other Pertinent Diagnosis COVID-19 (+), pneu, seizures, schizophrenia, Buttock and R foot PU, Current Diet Osmolite 1.5 at 55ml/hr Labs/Tests Reviewed Pertinent Medications Reviewed Height 5 ft 11 in Weight 78.7 kg [place] Body Weight (kg) 78.18 BMI 24.2 Weight Status Overweight Subjective/Other Information Pt continues tolerating TF at goal rate. Percent of energy/protein needs met: 97%/75% Burn Absent Trauma Absent Current % PO Negligible Minimum of two criteria No physical signs of malnutrition #2 Nutrition Diagnosis Increased nutrient needs ( specify in comment below) Diagnosis Progress(for reassessment Continues documentation) #1 Nutrition Diagnosis Inadequate oral intake Diagnosis Progress(for reassessment Continues documentation) Is patient on ventilator? Yes Is Patient Ambulatory and/or Out of Bed No REE-([facility]-confined to bed) [phone] Calculation Used for Recommendations [facility] Additional Notes Protein: 110-184 (1.2-2g/kg) Fluid: 1 ml/kcal or per MD Nutrition Intervention Change Diet Order: Continue TF Nutrition Support: Osmolite 1.5 at 55ml/hr Flush 150ml q4h Kcal 1,980 Protein (gm) 83 Fluid (mL) 1,006 Goal #1 TF tolerance Goal #2 TF to meet at least 75% of energy and protein needs Anticipated Discharge Needs: unable to determine at this time Follow-Up By: 08/22/19 Additional Comments Follow for stable TF
[2019-08-17] MEDS: FOLIC ACID 1 MG TAB PO SCH (10:32)
[2019-08-17] MEDS: FAMOTIDINE 20 MG TAB PO SCH ×2 (10:32→21:01)
[2019-08-17] MEDS: levETIRAcetam 500 MG/5 ML ORAL LIQD FEEDTUBE SCH ×2 (10:32→21:01)
[2019-08-17] MEDS: ENOXAPARIN 40 MG/0.4 ML INJ SUB-Q SCH (10:32)
[2019-08-17] MEDS: ASPIRIN 81 MG TAB CHEW PO SCH (10:33)
--- NOTE | 2019-08-17 11:59 | Progress Note ---
Assessment and Plan Acute hypoxemic respiratory failure on MVS Severe sepsis with Shock. Bilateral Pneumonia. PUI coronavirus-19 infection. Acute possibly on chronic encephalopathy. Oropharyngeal dysphagia. Anemia. Decubitus ulcers Diabetes type 2. Hypertension. Leukocytosis. Anemia that is microcytic. Elevated serum transaminases. [id number] metabolic acidosis. Lactic acidosis. Severe protein-calorie malnutrition ( has advised us she wants a tracheostomy and continued aggressive care) - prn CXR's and ABG's - not weaning well today but if he shows significant tolerace of SBT's over an extended few day periods a trial of extubation may still be considered - no new issues otherwise, continue care as below otherwise - follow repeat COVID-19 - surgery evaluation ongoing for tracheostomy placement (await negative COVID te st) - continue care as below otherwise - continue fentanyl gtt for pain control / sedation - continue to wean supplemental oxygen for target O2 sat's > 90% acutely - continue daily SAT's and SBT assessment as tolerated - VAP bundle addressed - continue lung protective strategies - continue bronchodilators with pulmonary hygiene per RT - wean per pulmonary driven protocols otherwise - prn Levophed for target MAP > 65 mmHg - continue airborne and contact COVID-19 precautions - COVID-19 test positive - complete anti-infectives and de-escalate per ID recommendations - continue wound care per WCT - sedation prn for target RASS 0 to -1 - accuchecks with glycemic control per SSI (While critically ill target blood glucose of 140-180 mg/dL; avoid hypoglycemia) - to avoid benzodiazepine's, reduce the possibility of delirium - prn analgesia per CPOT score - Maintenance of sleep-wake cycle, avoid delirium - continue enteral nutritional support at goal rate as tolerated - G.I. & VTE prophylaxis - PT/OT/ROM exercises - continue mobility protocols for pressure ulcer prophylaxis - Monitor hemodynamics closely - continue other care per attending / other consultants - discharge planning ongoing concurrently .... Re-evaluate in am & prn CONDITION: CRITICAL PROGNOSIS: GUARDED CODE STATUS: FULL CODE The high probability of a clinically significant, sudden or life-threatening deterioration of the [respiratory & cardiovascular] system(s) required my full and direct attention, intervention and personal management. The aggregate critical care time was [32] minutes without overlap. Time includes spent on; [x] Data Review and interpretation [x] Patient assessment and monitoring of vital signs [x] Documentation [x] Medication orders and management Subjective Date of service: 08/17/19 Principal diagnosis: Bilateral pneumonia, severe sepsis with septic shock, encephalopathy Interval history: Patient is seen today for: Ac hypoxemic Resp failure on MVS; Severe sepsis with Shock; Ivan. Pneumonia; PUI coronavirus-19 infection. Seen and examined at bedside; 24hour events reviewed; nursing and respiratory care staff consulted; no adverse overnight events reported to me; resting in bed; remains on MVS; not tolerating PSV trials well today; NO N/V/F/C Objective Vital Signs - 12hr 08/17/19 08/17/19 08/17/19 00:00 00:18 01:00 Temperature 99.4 F Pulse Rate 105 H 106 H 98 H Pulse Rate [ 105 H From Monitor] Respiratory 18 18 Rate Blood Pressure 137/71 135/81 134/75 O2 Sat by Pulse 99 98 99 Oximetry 08/17/19 08/17/19 08/17/19 02:00 03:00 03:35 Temperature 99.6 F Pulse Rate 88 101 H Pulse Rate [ From Monitor] Respiratory 14 17 Rate Blood Pressure 143/80 131/79 O2 Sat by Pulse 100 100 Oximetry 08/17/19 08/17/19 08/17/19 04:00 04:01 04:49 Temperature Pulse Rate 96 H 95 H 94 H Pulse Rate [ 96 H From Monitor] Respiratory 18 14 Rate Blood Pressure 147/88 147/89 O2 Sat by Pulse 100 100 100 Oximetry 08/17/19 08/17/19 08/17/19 05:00 06:00 07:00 Temperature Pulse Rate 89 94 H 92 H Pulse Rate [ From Monitor] Respiratory 20 13 12 Rate Blood Pressure 151/85 148/87 142/82 O2 Sat by Pulse 100 100 100 Oximetry 08/17/19 08/17/19 08/17/19 08:00 09:00 09:11 Temperature 98.6 F Pulse Rate 92 H 92 H 107 H Pulse Rate [ 96 H From Monitor] Respiratory 13 15 20 Rate Blood Pressure 154/88 150/87 157/100 O2 Sat by Pulse 100 99 100 Oximetry 08/17/19 08/17/19 10:00 11:00 Temperature Pulse Rate 108 H 132 H Pulse Rate [ From Monitor] Respiratory 12 33 H Rate Blood Pressure 158/95 181/123 O2 Sat by Pulse 100 99 Oximetry Constitutional: appears uncomfortable, other (eelderly and chronically ill looking AAM, normocep[krystina;ic with mildly increased respiratory effort at rest) Eyes: non-icteric ENT: oropharynx moist, other (ETT 24 cm Pawan) Neck: supple, no lymphadenopathy, no JVD Effort: very labored Ascultation: Bilateral: diminished breath sounds, rhonchi Percussion: Bilateral: not dull Cardiovascular: regular rate and rhythm Gastrointestinal: normoactive bowel sounds, soft, non-tender, non-distended, other (+ PEG tube with mild TF leakage) Integumentary: decubitus ulcer (sacral) Extremities: no cyanosis, no edema, pink and warm, pulses normal Neurologic: pupils equal and round, unable to assess Psychiatric: other (Unable to assess re: AMS) CBC and BMP: 08/18/19 06:00 08/18/19 06:00 ABG, PT/INR, D-dimer: ABG ABG pH 7.408 pH Units (7.350-7.450) 08/13/19 17:10 ABG pCO2 46.2 mm Hg 08/13/19 17:10 ABG pO2 105.0 mm Hg (80.0-90.0) H 08/13/19 17:10 ABG O2 Saturation 97.8 % (95.0-99.0) 08/13/19 17:10 PT/INR, D-dimer PT 16.0 Sec. (12.2-14.9) H 07/03/19 22:20 INR 1.26 (0.87-1.13) H 07/03/19 22:20 D-Dimer 1808.06 ng/mlDDU (0-234) H 08/07/19 10:24 Abnormal lab findings: Abnormal Labs 07/03/19 07/03/19 07/03/19 19:57 21:10 21:13 WBC RBC Hgb Hct MCV MCH MCHC RDW Plt Count Lymph % (Auto) [place] % (Auto) Lymph # [place] # Baso # Seg Neutrophils % Seg Neuts % (Manual) Lymphocytes % (Manual) Monocytes % (Manual) Nucleated RBC % Seg Neutrophils # Seg Neutrophils # Man Lymphocytes # (Manual) Monocytes # (Manual) Basophils # (Manual) PT INR D-Dimer ABG pH 7.238 L ABG pO2 210.8 H ABG HCO3 15.4 L ABG O2 Saturation 99.2 H ABG Base Excess -11.1 L ABG Hemoglobin 8.0 L Oxyhemoglobin Sodium 124 L Potassium Chloride 92.9 L Carbon Dioxide 10 L BUN 23 H Creatinine 0.5 L Glucose 118 H POC Glucose Lactic Acid Calcium 7.0 L Magnesium Iron TIBC Ferritin AST 70 H ALT 88 H Lactate Dehydrogenase Troponin T 0.032 H C-Reactive Protein Total Protein 5.0 L Albumin 1.8 L Prealbumin Cholesterol 47 L LDL Cholesterol Direct 25 L HDL Cholesterol 20 L Urine WBC (Auto) 12.0 H Vancomycin Trough Coronavirus (PCR) Crossmatch 07/03/19 07/03/19 07/03/19 22:20 22:20 22:20 WBC 30.5 H RBC 2.96 L Hgb 7.7 L Hct 23.9 L MCV 81 L MCH 26 L MCHC RDW 18.6 H Plt Count 459 H Lymph % (Auto) [place] % (Auto) Lymph # [place] # Baso # Seg Neutrophils % Seg Neuts % (Manual) 93.0 H Lymphocytes % (Manual) 0.5 L Monocytes % (Manual) Nucleated RBC % Seg Neutrophils # Seg Neutrophils # Man 28.4 H Lymphocytes # (Manual) 0.2 L Monocytes # (Manual) Basophils # (Manual) PT 16.0 H INR 1.26 H D-Dimer ABG pH ABG pO2 ABG HCO3 ABG O2 Saturation ABG Base Excess ABG Hemoglobin Oxyhemoglobin Sodium Potassium Chloride Carbon Dioxide BUN Creatinine Glucose POC Glucose Lactic Acid 6.90 H* Calcium Magnesium Iron TIBC Ferritin AST ALT Lactate Dehydrogenase Troponin T C-Reactive Protein Total Protein Albumin Prealbumin Cholesterol LDL Cholesterol Direct HDL Cholesterol Urine WBC (Auto) Vancomycin Trough Coronavirus (PCR) Crossmatch 07/03/19 07/04/19 07/04/19 23:58 05:15 07:05 WBC 17.1 H RBC 3.22 L Hgb 8.3 L Hct 25.4 L MCV 79 L MCH 26 L MCHC RDW 18.6 H Plt Count Lymph % (Auto) [place] % (Auto) Lymph # [place] # Baso # Seg Neutrophils % Seg Neuts % (Manual) 74.0 H Lymphocytes % (Manual) 0 L Monocytes % (Manual) Nucleated RBC % Seg Neutrophils # Seg Neutrophils # Man 12.7 H Lymphocytes # (Manual) 0.0 L Monocytes # (Manual) Basophils # (Manual) PT INR D-Dimer ABG pH 7.310 L ABG pO2 73.2 L ABG HCO3 17.8 L ABG O2 Saturation 93.8 L ABG Base Excess -7.7 L ABG Hemoglobin 9.6 L Oxyhemoglobin 92.3 L Sodium Potassium Chloride Carbon Dioxide BUN Creatinine Glucose POC Glucose Lactic Acid 7.10 H* Calcium Magnesium Iron TIBC Ferritin AST ALT Lactate Dehydrogenase Troponin T C-Reactive Protein Total Protein Albumin Prealbumin Cholesterol LDL Cholesterol Direct HDL Cholesterol Urine WBC (Auto) Vancomycin Trough Coronavirus (PCR) Crossmatch 07/04/19 07/04/19 07/04/19 07:05 07:05 07:05 WBC RBC Hgb Hct MCV MCH MCHC RDW Plt Count Lymph % (Auto) [place] % (Auto) Lymph # [place] # Baso # Seg Neutrophils % Seg Neuts % (Manual) Lymphocytes % (Manual) Monocytes % (Manual) Nucleated RBC % Seg Neutrophils # Seg Neutrophils # Man Lymphocytes # (Manual) Monocytes # (Manual) Basophils # (Manual) PT INR D-Dimer ABG pH ABG pO2 ABG HCO3 ABG O2 Saturation ABG Base Excess ABG Hemoglobin Oxyhemoglobin Sodium 120 L Potassium 5.1 H Chloride 90.0 L Carbon Dioxide 14 L BUN 26 H Creatinine 0.5 L Glucose POC Glucose Lactic Acid 3.30 H* Calcium 8.0 L Magnesium Iron 9 L TIBC 97 L Ferritin AST 73 H ALT 91 H Lactate Dehydrogenase Troponin T C-Reactive Protein Total Protein 5.5 L Albumin 2.0 L Prealbumin Cholesterol LDL Cholesterol Direct HDL Cholesterol Urine WBC (Auto) Vancomycin Trough Coronavirus (PCR) Crossmatch 07/04/19 07/04/19 07/04/19 09:39 09:39 09:39 WBC RBC Hgb Hct MCV MCH MCHC RDW Plt Count Lymph % (Auto) [place] % (Auto) Lymph # [place] # Baso # Seg Neutrophils % Seg Neuts % (Manual) Lymphocytes % (Manual) Monocytes % (Manual) Nucleated RBC % Seg Neutrophils # Seg Neutrophils # Man Lymphocytes # (Manual) Monocytes # (Manual) Basophils # (Manual) PT INR D-Dimer 1419.14 H ABG pH ABG pO2 ABG HCO3 ABG O2 Saturation ABG Base Excess ABG Hemoglobin Oxyhemoglobin Sodium Potassium Chloride Carbon Dioxide BUN Creatinine Glucose POC Glucose Lactic Acid Calcium Magnesium Iron TIBC Ferritin 1719.0 H AST ALT Lactate Dehydrogenase 234 H Troponin T C-Reactive Protein 15.50 H Total Protein Albumin Prealbumin Cholesterol LDL Cholesterol Direct HDL Cholesterol Urine WBC (Auto) Vancomycin Trough Coronavirus (PCR) Crossmatch 07/04/19 07/04/19 07/04/19 10:09 18:08 18:28 WBC RBC Hgb Hct MCV MCH MCHC RDW Plt Count Lymph % (Auto) [place] % (Auto) Lymph # [place] # Baso # Seg Neutrophils % Seg Neuts % (Manual) Lymphocytes % (Manual) Monocytes % (Manual) Nucleated RBC % Seg Neutrophils # Seg Neutrophils # Man Lymphocytes # (Manual) Monocytes # (Manual) Basophils # (Manual) PT INR D-Dimer ABG pH ABG pO2 ABG HCO3 ABG O2 Saturation ABG Base Excess ABG Hemoglobin Oxyhemoglobin Sodium 117 L* Potassium 5.6 H Chloride 90.3 L Carbon Dioxide 16 L BUN 28 H Creatinine 0.5 L Glucose 58 L POC Glucose 65 L Lactic Acid Calcium 8.2 L Magnesium Iron TIBC Ferritin AST ALT Lactate Dehydrogenase Troponin T C-Reactive Protein Total Protein Albumin Prealbumin Cholesterol LDL Cholesterol Direct HDL Cholesterol Urine WBC (Auto) Vancomycin Trough Coronavirus (PCR) Positive A Crossmatch 07/04/19 07/04/19 07/04/19 23:45 Unknown Unknown WBC RBC Hgb Hct MCV MCH MCHC RDW Plt Count Lymph % (Auto) [place] % (Auto) Lymph # [place] # Baso # Seg Neutrophils % Seg Neuts % (Manual) Lymphocytes % (Manual) Monocytes % (Manual) Nucleated RBC % Seg Neutrophils # Seg Neutrophils # Man Lymphocytes # (Manual) Monocytes # (Manual) Basophils # (Manual) PT INR D-Dimer 759.77 H ABG pH ABG pO2 ABG HCO3 ABG O2 Saturation ABG Base Excess ABG Hemoglobin Oxyhemoglobin Sodium 122 L Potassium Chloride 93.0 L Carbon Dioxide 19 L BUN 27 H Creatinine 0.5 L Glucose POC Glucose Lactic Acid Calcium 8.3 L Magnesium Iron TIBC Ferritin 1301.0 H AST ALT Lactate Dehydrogenase Troponin T C-Reactive Protein Total Protein Albumin Prealbumin Cholesterol LDL Cholesterol Direct HDL Cholesterol Urine WBC (Auto) Vancomycin Trough Coronavirus (PCR) Crossmatch 07/04/19 07/05/19 07/05/19 Unknown 03:20 04:00 WBC RBC Hgb Hct MCV MCH MCHC RDW Plt Count Lymph % (Auto) [place] % (Auto) Lymph # [place] # Baso # Seg Neutrophils % Seg Neuts % (Manual) Lymphocytes % (Manual) Monocytes % (Manual) Nucleated RBC % Seg Neutrophils # Seg Neutrophils # Man Lymphocytes # (Manual) Monocytes # (Manual) Basophils # (Manual) PT INR D-Dimer ABG pH ABG pO2 60.6 L ABG HCO3 ABG O2 Saturation 93.5 L ABG Base Excess -2.4 L ABG Hemoglobin 6.9 L Oxyhemoglobin 92.0 L Sodium 125 L Potassium Chloride 92.6 L Carbon Dioxide 19 L BUN 24 H Creatinine 0.6 L Glucose POC Glucose Lactic Acid Calcium 8.2 L Magnesium 1.40 L Iron TIBC Ferritin AST ALT Lactate Dehydrogenase 242 H Troponin T C-Reactive Protein 16.70 H Total Protein Albumin Prealbumin Cholesterol LDL Cholesterol Direct HDL Cholesterol Urine WBC (Auto) Vancomycin Trough Coronavirus (PCR) Crossmatch 07/05/19 07/05/19 07/05/19 10:11 16:15 17:54 WBC 46.4 H* RBC 2.77 L Hgb 7.2 L Hct 21.9 L MCV 79 L MCH 26 L MCHC RDW 19.0 H Plt Count Lymph % (Auto) [place] % (Auto) Lymph # [place] # Baso # Seg Neutrophils % Seg Neuts % (Manual) 82.0 H Lymphocytes % (Manual) 1.0 L Monocytes % (Manual) Nucleated RBC % Seg Neutrophils # Seg Neutrophils # Man 38.0 H Lymphocytes # (Manual) 0.5 L Monocytes # (Manual) Basophils # (Manual) PT INR D-Dimer ABG pH ABG pO2 ABG HCO3 ABG O2 Saturation ABG Base Excess ABG Hemoglobin Oxyhemoglobin Sodium Potassium Chloride Carbon Dioxide BUN Creatinine Glucose POC Glucose 69 L Lactic Acid Calcium Magnesium Iron TIBC Ferritin AST ALT Lactate Dehydrogenase Troponin T C-Reactive Protein Total Protein Albumin Prealbumin Cholesterol LDL Cholesterol Direct HDL Cholesterol Urine WBC (Auto) Vancomycin Trough 23.2 H Coronavirus (PCR) Crossmatch 07/05/19 07/06/19 07/06/19 19:58 00:27 00:27 WBC RBC Hgb Hct MCV MCH MCHC RDW Plt Count Lymph % (Auto) [place] % (Auto) Lymph # [place] # Baso # Seg Neutrophils % Seg Neuts % (Manual) Lymphocytes % (Manual) Monocytes % (Manual) Nucleated RBC % Seg Neutrophils # Seg Neutrophils # Man Lymphocytes # (Manual) Monocytes # (Manual) Basophils # (Manual) PT INR D-Dimer 1333.22 H ABG pH ABG pO2 ABG HCO3 ABG O2 Saturation ABG Base Excess ABG Hemoglobin Oxyhemoglobin Sodium 127 L Potassium Chloride Carbon Dioxide BUN Creatinine Glucose POC Glucose Lactic Acid Calcium Magnesium Iron TIBC Ferritin 977.1 H AST ALT Lactate Dehydrogenase Troponin T C-Reactive Protein Total Protein Albumin Prealbumin Cholesterol LDL Cholesterol Direct HDL Cholesterol Urine WBC (Auto) Vancomycin Trough Coronavirus (PCR) Crossmatch 07/06/19 07/06/19 07/06/19 00:27 02:00 02:56 WBC RBC Hgb Hct MCV MCH MCHC RDW Plt Count Lymph % (Auto) [place] % (Auto) Lymph # [place] # Baso # Seg Neutrophils % Seg Neuts % (Manual) Lymphocytes % (Manual) Monocytes % (Manual) Nucleated RBC % Seg Neutrophils # Seg Neutrophils # Man Lymphocytes # (Manual) Monocytes # (Manual) Basophils # (Manual) PT INR D-Dimer ABG pH ABG pO2 70.3 L ABG HCO3 ABG O2 Saturation 94.8 L ABG Base Excess ABG Hemoglobin 8.0 L Oxyhemoglobin 93.2 L Sodium Potassium Chloride Carbon Dioxide BUN Creatinine Glucose POC Glucose 117 H Lactic Acid Calcium Magnesium Iron TIBC Ferritin AST ALT Lactate Dehydrogenase 236 H Troponin T C-Reactive Protein 22.90 H Total Protein Albumin Prealbumin Cholesterol LDL Cholesterol Direct HDL Cholesterol Urine WBC (Auto) Vancomycin Trough Coronavirus (PCR) Crossmatch 07/06/19 07/06/19 07/06/19 03:49 03:49 07:40 WBC 38.8 H RBC 2.51 L Hgb 6.7 L Hct 19.9 L* MCV 79 L MCH 27 L MCHC RDW 19.2 H Plt Count Lymph % (Auto) [place] % (Auto) Lymph # [place] # Baso # Seg Neutrophils % Seg Neuts % (Manual) 90.5 H Lymphocytes % (Manual) 1.0 L Monocytes % (Manual) Nucleated RBC % Seg Neutrophils # Seg Neutrophils # Man 35.1 H Lymphocytes # (Manual) 0.4 L Monocytes # (Manual) Basophils # (Manual) PT INR D-Dimer ABG pH ABG pO2 ABG HCO3 ABG O2 Saturation ABG Base Excess ABG Hemoglobin Oxyhemoglobin Sodium 131 L Potassium Chloride 96.9 L Carbon Dioxide 18 L BUN 23 H Creatinine 0.5 L Glucose POC Glucose Lactic Acid Calcium 8.0 L Magnesium Iron TIBC Ferritin AST ALT Lactate Dehydrogenase Troponin T C-Reactive Protein Total Protein Albumin Prealbumin Cholesterol LDL Cholesterol Direct HDL Cholesterol Urine WBC (Auto) Vancomycin Trough Coronavirus (PCR) Crossmatch See Detail 07/06/19 07/06/19 07/06/19 12:38 14:39 20:00 WBC RBC Hgb Hct MCV MCH MCHC RDW Plt Count Lymph % (Auto) [place] % (Auto) Lymph # [place] # Baso # Seg Neutrophils % Seg Neuts % (Manual) Lymphocytes % (Manual) Monocytes % (Manual) Nucleated RBC % Seg Neutrophils # Seg Neutrophils # Man Lymphocytes # (Manual) Monocytes # (Manual) Basophils # (Manual) PT INR D-Dimer ABG pH ABG pO2 ABG HCO3 ABG O2 Saturation ABG Base Excess ABG Hemoglobin Oxyhemoglobin Sodium Potassium Chloride Carbon Dioxide BUN Creatinine Glucose POC Glucose 112 H 111 H 140 H Lactic Acid Calcium Magnesium Iron TIBC Ferritin AST ALT Lactate Dehydrogenase Troponin T C-Reactive Protein Total Protein Albumin Prealbumin Cholesterol LDL Cholesterol Direct HDL Cholesterol Urine WBC (Auto) Vancomycin Trough Coronavirus (PCR) Crossmatch 07/06/19 07/06/19 07/07/19 22:43 22:56 02:20 WBC RBC Hgb 7.9 L Hct 23.1 L MCV MCH MCHC RDW Plt Count Lymph % (Auto) [place] % (Auto) Lymph # [place] # Baso # Seg Neutrophils % Seg Neuts % (Manual) Lymphocytes % (Manual) Monocytes % (Manual) Nucleated RBC % Seg Neutrophils # Seg Neutrophils # Man Lymphocytes # (Manual) Monocytes # (Manual) Basophils # (Manual) PT INR D-Dimer ABG pH ABG pO2 ABG HCO3 ABG O2 Saturation ABG Base Excess ABG Hemoglobin Oxyhemoglobin Sodium Potassium Chloride Carbon Dioxide BUN Creatinine Glucose POC Glucose 122 H 149 H Lactic Acid Calcium Magnesium Iron TIBC Ferritin AST ALT Lactate Dehydrogenase Troponin T C-Reactive Protein Total Protein Albumin Prealbumin Cholesterol LDL Cholesterol Direct HDL Cholesterol Urine WBC (Auto) Vancomycin Trough Coronavirus (PCR) Crossmatch 07/07/19 07/07/19 07/07/19 04:35 05:27 05:34 WBC 23.1 H RBC 3.00 L Hgb 8.1 L Hct 24.2 L MCV 81 L MCH 27 L MCHC RDW 20.6 H Plt Count Lymph % (Auto) [place] % (Auto) Lymph # [place] # Baso # Seg Neutrophils % Seg Neuts % (Manual) 90.0 H Lymphocytes % (Manual) 2.0 L Monocytes % (Manual) Nucleated RBC % Seg Neutrophils # Seg Neutrophils # Man 20.8 H Lymphocytes # (Manual) 0.5 L Monocytes # (Manual) Basophils # (Manual) PT INR D-Dimer ABG pH ABG pO2 65.8 L ABG HCO3 ABG O2 Saturation 92.2 L ABG Base Excess ABG Hemoglobin 8.3 L Oxyhemoglobin 90.6 L Sodium Potassium Chloride Carbon Dioxide BUN Creatinine Glucose POC Glucose 132 H Lactic Acid Calcium Magnesium Iron TIBC Ferritin AST ALT Lactate Dehydrogenase Troponin T C-Reactive Protein Total Protein Albumin Prealbumin Cholesterol LDL Cholesterol Direct HDL Cholesterol Urine WBC (Auto) Vancomycin Trough Coronavirus (PCR) Crossmatch 07/07/19 07/07/19 07/07/19 05:34 11:50 15:58 WBC RBC Hgb 8.1 L Hct 24.2 L MCV MCH MCHC RDW Plt Count Lymph % (Auto) [place] % (Auto) Lymph # [place] # Baso # Seg Neutrophils % Seg Neuts % (Manual) Lymphocytes % (Manual) Monocytes % (Manual) Nucleated RBC % Seg Neutrophils # Seg Neutrophils # Man Lymphocytes # (Manual) Monocytes # (Manual) Basophils # (Manual) PT INR D-Dimer ABG pH ABG pO2 ABG HCO3 ABG O2 Saturation ABG Base Excess ABG Hemoglobin Oxyhemoglobin Sodium 135 L Potassium 3.3 L Chloride Carbon Dioxide 20 L BUN 27 H Creatinine 0.6 L Glucose 121 H POC Glucose 123 H Lactic Acid Calcium 8.0 L Magnesium Iron TIBC Ferritin AST ALT Lactate Dehydrogenase Troponin T C-Reactive Protein Total Protein Albumin Prealbumin Cholesterol LDL Cholesterol Direct HDL Cholesterol Urine WBC (Auto) Vancomycin Trough Coronavirus (PCR) Crossmatch 07/07/19 07/07/19 07/07/19 17:42 22:00 23:53 WBC RBC Hgb 8.0 L Hct 23.4 L MCV MCH MCHC RDW Plt Count Lymph % (Auto) [place] % (Auto) Lymph # [place] # Baso # Seg Neutrophils % Seg Neuts % (Manual) Lymphocytes % (Manual) Monocytes % (Manual) Nucleated RBC % Seg Neutrophils # Seg Neutrophils # Man Lymphocytes # (Manual) Monocytes # (Manual) Basophils # (Manual) PT INR D-Dimer ABG pH ABG pO2 ABG HCO3 ABG O2 Saturation ABG Base Excess ABG Hemoglobin Oxyhemoglobin Sodium Potassium Chloride Carbon Dioxide BUN Creatinine Glucose POC Glucose 107 H 117 H Lactic Acid Calcium Magnesium Iron TIBC Ferritin AST ALT Lactate Dehydrogenase Troponin T C-Reactive Protein Total Protein Albumin Prealbumin Cholesterol LDL Cholesterol Direct HDL Cholesterol Urine WBC (Auto) Vancomycin Trough Coronavirus (PCR) Crossmatch 07/08/19 07/08/19 07/08/19 00:45 00:45 00:45 WBC RBC Hgb Hct MCV MCH MCHC RDW Plt Count Lymph % (Auto) [place] % (Auto) Lymph # [place] # Baso # Seg Neutrophils % Seg Neuts % (Manual) Lymphocytes % (Manual) Monocytes % (Manual) Nucleated RBC % Seg Neutrophils # Seg Neutrophils # Man Lymphocytes # (Manual) Monocytes # (Manual) Basophils # (Manual) PT INR D-Dimer 1142.18 H ABG pH ABG pO2 ABG HCO3 ABG O2 Saturation ABG Base Excess ABG Hemoglobin Oxyhemoglobin Sodium Potassium Chloride Carbon Dioxide BUN Creatinine Glucose POC Glucose Lactic Acid Calcium Magnesium Iron TIBC Ferritin 839.0 H AST ALT Lactate Dehydrogenase 253 H Troponin T C-Reactive Protein 18.90 H Total Protein Albumin Prealbumin Cholesterol LDL Cholesterol Direct HDL Cholesterol Urine WBC (Auto) Vancomycin Trough Coronavirus (PCR) Crossmatch 07/08/19 07/08/19 07/08/19 04:30 05:11 12:02 WBC RBC Hgb Hct MCV MCH MCHC RDW Plt Count Lymph % (Auto) [place] % (Auto) Lymph # [place] # Baso # Seg Neutrophils % Seg Neuts % (Manual) Lymphocytes % (Manual) Monocytes % (Manual) Nucleated RBC % Seg Neutrophils # Seg Neutrophils # Man Lymphocytes # (Manual) Monocytes # (Manual) Basophils # (Manual) PT INR D-Dimer ABG pH ABG pO2 66.0 L ABG HCO3 ABG O2 Saturation 92.3 L ABG Base Excess ABG Hemoglobin 7.7 L Oxyhemoglobin 90.7 L Sodium Potassium Chloride Carbon Dioxide BUN Creatinine Glucose POC Glucose 108 H 153 H Lactic Acid Calcium Magnesium Iron TIBC Ferritin AST ALT Lactate Dehydrogenase Troponin T C-Reactive Protein Total Protein Albumin Prealbumin Cholesterol LDL Cholesterol Direct HDL Cholesterol Urine WBC (Auto) Vancomycin Trough Coronavirus (PCR) Crossmatch 04/19/20 04/19/20 04/19/20 16:15 18:22 23:35 WBC RBC Hgb Hct MCV MCH MCHC RDW Plt Count Lymph % (Auto) [place] % (Auto) Lymph # [place] # Baso # Seg Neutrophils % Seg Neuts % (Manual) Lymphocytes % (Manual) Monocytes % (Manual) Nucleated RBC % Seg Neutrophils # Seg Neutrophils # Man Lymphocytes # (Manual) Monocytes # (Manual) Basophils # (Manual) PT INR D-Dimer ABG pH ABG pO2 ABG HCO3 ABG O2 Saturation ABG Base Excess ABG Hemoglobin Oxyhemoglobin Sodium 134 L Potassium 3.3 L Chloride Carbon Dioxide 21 L BUN 27 H Creatinine 0.6 L Glucose 146 H POC Glucose 134 H 133 H Lactic Acid Calcium Magnesium Iron TIBC Ferritin AST ALT Lactate Dehydrogenase Troponin T C-Reactive Protein Total Protein Albumin Prealbumin Cholesterol LDL Cholesterol Direct HDL Cholesterol Urine WBC (Auto) Vancomycin Trough Coronavirus (PCR) Crossmatch 07/09/19 07/09/19 07/09/19 04:30 04:30 05:00 WBC 18.9 H RBC 2.77 L Hgb 7.4 L Hct 22.8 L MCV 82 L MCH 27 L MCHC RDW 20.9 H Plt Count 130 L Lymph % (Auto) [place] % (Auto) Lymph # [place] # Baso # Seg Neutrophils % Seg Neuts % (Manual) 84.0 H Lymphocytes % (Manual) 0 L Monocytes % (Manual) Nucleated RBC % Seg Neutrophils # Seg Neutrophils # Man 15.9 H Lymphocytes # (Manual) 0.0 L Monocytes # (Manual) Basophils # (Manual) PT INR D-Dimer ABG pH ABG pO2 ABG HCO3 ABG O2 Saturation ABG Base Excess ABG Hemoglobin Oxyhemoglobin Sodium Potassium 3.1 L Chloride Carbon Dioxide BUN 26 H Creatinine 0.5 L Glucose 125 H POC Glucose 155 H Lactic Acid Calcium Magnesium Iron TIBC Ferritin AST ALT Lactate Dehydrogenase Troponin T C-Reactive Protein Total Protein Albumin Prealbumin Cholesterol LDL Cholesterol Direct HDL Cholesterol Urine WBC (Auto) Vancomycin Trough Coronavirus (PCR) Crossmatch 07/09/19 07/09/19 07/09/19 05:55 12:22 17:50 WBC RBC Hgb Hct MCV MCH MCHC RDW Plt Count Lymph % (Auto) [place] % (Auto) Lymph # [place] # Baso # Seg Neutrophils % Seg Neuts % (Manual) Lymphocytes % (Manual) Monocytes % (Manual) Nucleated RBC % Seg Neutrophils # Seg Neutrophils # Man Lymphocytes # (Manual) Monocytes # (Manual) Basophils # (Manual) PT INR D-Dimer ABG pH ABG pO2 62.8 L ABG HCO3 ABG O2 Saturation ABG Base Excess ABG Hemoglobin 6.1 L Oxyhemoglobin 93.9 L Sodium Potassium Chloride Carbon Dioxide BUN Creatinine Glucose POC Glucose 115 H 133 H Lactic Acid Calcium Magnesium Iron TIBC Ferritin AST ALT Lactate Dehydrogenase Troponin T C-Reactive Protein Total Protein Albumin Prealbumin Cholesterol LDL Cholesterol Direct HDL Cholesterol Urine WBC (Auto) Vancomycin Trough Coronavirus (PCR) Crossmatch 07/10/19 07/10/19 07/10/19 00:38 04:00 04:00 WBC RBC Hgb Hct MCV MCH MCHC RDW Plt Count Lymph % (Auto) [place] % (Auto) Lymph # [place] # Baso # Seg Neutrophils % Seg Neuts % (Manual) Lymphocytes % (Manual) Monocytes % (Manual) Nucleated RBC % Seg Neutrophils # Seg Neutrophils # Man Lymphocytes # (Manual) Monocytes # (Manual) Basophils # (Manual) PT INR D-Dimer ABG pH ABG pO2 ABG HCO3 ABG O2 Saturation ABG Base Excess ABG Hemoglobin Oxyhemoglobin Sodium Potassium Chloride 107.9 H Carbon Dioxide BUN 26 H Creatinine 0.4 L Glucose 137 H POC Glucose 122 H Lactic Acid Calcium Magnesium 1.50 L Iron TIBC Ferritin AST ALT Lactate Dehydrogenase 277 H Troponin T C-Reactive Protein 15.10 H Total Protein Albumin Prealbumin Cholesterol LDL Cholesterol Direct HDL Cholesterol Urine WBC (Auto) Vancomycin Trough Coronavirus (PCR) Crossmatch 07/10/19 07/10/19 07/10/19 04:07 05:21 17:25 WBC RBC Hgb Hct MCV MCH MCHC RDW Plt Count Lymph % (Auto) [place] % (Auto) Lymph # [place] # Baso # Seg Neutrophils % Seg Neuts % (Manual) Lymphocytes % (Manual) Monocytes % (Manual) Nucleated RBC % Seg Neutrophils # Seg Neutrophils # Man Lymphocytes # (Manual) Monocytes # (Manual) Basophils # (Manual) PT INR D-Dimer ABG pH ABG pO2 65.6 L ABG HCO3 26.3 H ABG O2 Saturation ABG Base Excess ABG Hemoglobin 6.7 L Oxyhemoglobin Sodium Potassium Chloride Carbon Dioxide BUN Creatinine Glucose POC Glucose 144 H 113 H Lactic Acid Calcium Magnesium Iron TIBC Ferritin AST ALT Lactate Dehydrogenase Troponin T C-Reactive Protein Total Protein Albumin Prealbumin Cholesterol LDL Cholesterol Direct HDL Cholesterol Urine WBC (Auto) Vancomycin Trough Coronavirus (PCR) Crossmatch 07/11/19 07/11/19 07/11/19 00:07 05:14 05:25 WBC RBC Hgb Hct MCV MCH MCHC RDW Plt Count Lymph % (Auto) [place] % (Auto) Lymph # [place] # Baso # Seg Neutrophils % Seg Neuts % (Manual) Lymphocytes % (Manual) Monocytes % (Manual) Nucleated RBC % Seg Neutrophils # Seg Neutrophils # Man Lymphocytes # (Manual) Monocytes # (Manual) Basophils # (Manual) PT INR D-Dimer ABG pH ABG pO2 ABG HCO3 ABG O2 Saturation ABG Base Excess ABG Hemoglobin 5.8 L Oxyhemoglobin Sodium Potassium Chloride 108.0 H Carbon Dioxide BUN 26 H Creatinine 0.4 L Glucose 110 H POC Glucose 121 H Lactic Acid Calcium Magnesium Iron TIBC Ferritin AST ALT Lactate Dehydrogenase Troponin T C-Reactive Protein Total Protein Albumin Prealbumin Cholesterol LDL Cholesterol Direct HDL Cholesterol Urine WBC (Auto) Vancomycin Trough Coronavirus (PCR) Crossmatch 07/11/19 07/11/19 07/11/19 12:27 18:00 23:42 WBC RBC Hgb Hct MCV MCH MCHC RDW Plt Count Lymph % (Auto) [place] % (Auto) Lymph # [place] # Baso # Seg Neutrophils % Seg Neuts % (Manual) Lymphocytes % (Manual) Monocytes % (Manual) Nucleated RBC % Seg Neutrophils # Seg Neutrophils # Man Lymphocytes # (Manual) Monocytes # (Manual) Basophils # (Manual) PT INR D-Dimer ABG pH ABG pO2 ABG HCO3 ABG O2 Saturation ABG Base Excess ABG Hemoglobin Oxyhemoglobin Sodium Potassium Chloride Carbon Dioxide BUN Creatinine Glucose POC Glucose 158 H 141 H 142 H Lactic Acid Calcium Magnesium Iron TIBC Ferritin AST ALT Lactate Dehydrogenase Troponin T C-Reactive Protein Total Protein Albumin Prealbumin Cholesterol LDL Cholesterol Direct HDL Cholesterol Urine WBC (Auto) Vancomycin Trough Coronavirus (PCR) Crossmatch 07/12/19 07/12/19 07/12/19 04:46 04:46 05:23 WBC 23.6 H RBC 2.51 L Hgb 6.7 L Hct 20.8 L MCV 83 L MCH 27 L MCHC RDW 20.3 H Plt Count Lymph % (Auto) [place] % (Auto) Lymph # [place] # Baso # Seg Neutrophils % Seg Neuts % (Manual) 94.0 H Lymphocytes % (Manual) 4.0 L Monocytes % (Manual) Nucleated RBC % Seg Neutrophils # Seg Neutrophils # Man 22.2 H Lymphocytes # (Manual) 0.9 L Monocytes # (Manual) Basophils # (Manual) PT INR D-Dimer ABG pH ABG pO2 ABG HCO3 ABG O2 Saturation ABG Base Excess ABG Hemoglobin Oxyhemoglobin Sodium Potassium Chloride 107.1 H Carbon Dioxide BUN 25 H Creatinine 0.4 L Glucose 122 H POC Glucose 118 H Lactic Acid Calcium Magnesium Iron TIBC Ferritin AST ALT Lactate Dehydrogenase Troponin T C-Reactive Protein Total Protein Albumin Prealbumin Cholesterol LDL Cholesterol Direct HDL Cholesterol Urine WBC (Auto) Vancomycin Trough Coronavirus (PCR) Crossmatch 07/12/19 07/12/19 07/12/19 08:49 11:36 18:15 WBC RBC Hgb Hct MCV MCH MCHC RDW Plt Count Lymph % (Auto) [place] % (Auto) Lymph # [place] # Baso # Seg Neutrophils % Seg Neuts % (Manual) Lymphocytes % (Manual) Monocytes % (Manual) Nucleated RBC % Seg Neutrophils # Seg Neutrophils # Man Lymphocytes # (Manual) Monocytes # (Manual) Basophils # (Manual) PT INR D-Dimer ABG pH ABG pO2 ABG HCO3 ABG O2 Saturation ABG Base Excess ABG Hemoglobin Oxyhemoglobin Sodium Potassium Chloride Carbon Dioxide BUN Creatinine Glucose POC Glucose 124 H 110 H Lactic Acid Calcium Magnesium Iron TIBC Ferritin AST ALT Lactate Dehydrogenase Troponin T C-Reactive Protein Total Protein Albumin Prealbumin Cholesterol LDL Cholesterol Direct HDL Cholesterol Urine WBC (Auto) Vancomycin Trough Coronavirus (PCR) Crossmatch See Detail 07/12/19 07/13/19 07/13/19 23:16 05:26 06:50 WBC 23.9 H RBC 2.58 L Hgb 6.9 L Hct 21.5 L MCV 83 L MCH 27 L MCHC RDW 19.0 H Plt Count Lymph % (Auto) [place] % (Auto) Lymph # [place] # Baso # Seg Neutrophils % Seg Neuts % (Manual) 96.0 H Lymphocytes % (Manual) 3.0 L Monocytes % (Manual) Nucleated RBC % Seg Neutrophils # Seg Neutrophils # Man 22.9 H Lymphocytes # (Manual) 0.7 L Monocytes # (Manual) Basophils # (Manual) PT INR D-Dimer ABG pH ABG pO2 ABG HCO3 ABG O2 Saturation ABG Base Excess ABG Hemoglobin Oxyhemoglobin Sodium Potassium Chloride Carbon Dioxide BUN Creatinine Glucose POC Glucose 108 H 126 H Lactic Acid Calcium Magnesium Iron TIBC Ferritin AST ALT Lactate Dehydrogenase Troponin T C-Reactive Protein Total Protein Albumin Prealbumin Cholesterol LDL Cholesterol Direct HDL Cholesterol Urine WBC (Auto) Vancomycin Trough Coronavirus (PCR) Crossmatch 07/13/19 07/13/19 07/13/19 06:50 12:38 18:05 WBC RBC Hgb Hct MCV MCH MCHC RDW Plt Count Lymph % (Auto) [place] % (Auto) Lymph # [place] # Baso # Seg Neutrophils % Seg Neuts % (Manual) Lymphocytes % (Manual) Monocytes % (Manual) Nucleated RBC % Seg Neutrophils # Seg Neutrophils # Man Lymphocytes # (Manual) Monocytes # (Manual) Basophils # (Manual) PT INR D-Dimer ABG pH ABG pO2 ABG HCO3 ABG O2 Saturation ABG Base Excess ABG Hemoglobin Oxyhemoglobin Sodium Potassium Chloride Carbon Dioxide BUN 33 H Creatinine 0.5 L Glucose 136 H POC Glucose 164 H 145 H Lactic Acid Calcium Magnesium Iron TIBC Ferritin AST ALT Lactate Dehydrogenase Troponin T C-Reactive Protein Total Protein Albumin Prealbumin Cholesterol LDL Cholesterol Direct HDL Cholesterol Urine WBC (Auto) Vancomycin Trough Coronavirus (PCR) Crossmatch 07/13/19 07/14/19 07/14/19 18:30 00:21 04:40 WBC 22.9 H RBC 2.45 L Hgb 6.6 L Hct 21.1 L MCV MCH 27 L MCHC 31 L RDW 19.2 H Plt Count Lymph % (Auto) [place] % (Auto) Lymph # [place] # Baso # Seg Neutrophils % Seg Neuts % (Manual) 91.0 H Lymphocytes % (Manual) 7.0 L Monocytes % (Manual) Nucleated RBC % Seg Neutrophils # Seg Neutrophils # Man 20.8 H Lymphocytes # (Manual) Monocytes # (Manual) Basophils # (Manual) PT INR D-Dimer ABG pH ABG pO2 58.1 L ABG HCO3 ABG O2 Saturation 88.7 L ABG Base Excess ABG Hemoglobin 7.8 L Oxyhemoglobin 86.8 L Sodium Potassium Chloride Carbon Dioxide BUN Creatinine Glucose POC Glucose 118 H Lactic Acid Calcium Magnesium Iron TIBC Ferritin AST ALT Lactate Dehydrogenase Troponin T C-Reactive Protein Total Protein Albumin Prealbumin Cholesterol LDL Cholesterol Direct HDL Cholesterol Urine WBC (Auto) Vancomycin Trough Coronavirus (PCR) Crossmatch 07/14/19 07/14/19 07/14/19 04:40 05:38 05:45 WBC RBC Hgb Hct MCV MCH MCHC RDW Plt Count Lymph % (Auto) [place] % (Auto) Lymph # [place] # Baso # Seg Neutrophils % Seg Neuts % (Manual) Lymphocytes % (Manual) Monocytes % (Manual) Nucleated RBC % Seg Neutrophils # Seg Neutrophils # Man Lymphocytes # (Manual) Monocytes # (Manual) Basophils # (Manual) PT INR D-Dimer ABG pH 7.230 L ABG pO2 72.1 L ABG HCO3 ABG O2 Saturation 89.3 L ABG Base Excess -2.7 L ABG Hemoglobin 6.7 L Oxyhemoglobin 87.7 L Sodium Potassium Chloride 107.4 H Carbon Dioxide BUN 45 H Creatinine Glucose 101 H POC Glucose 154 H Lactic Acid Calcium Magnesium Iron TIBC Ferritin AST ALT Lactate Dehydrogenase Troponin T C-Reactive Protein Total Protein Albumin Prealbumin Cholesterol LDL Cholesterol Direct HDL Cholesterol Urine WBC (Auto) Vancomycin Trough Coronavirus (PCR) Crossmatch 07/14/19 07/14/19 07/14/19 12:25 18:20 19:01 WBC 22.4 H RBC 2.70 L Hgb 7.5 L Hct 23.3 L MCV MCH MCHC RDW 19.5 H Plt Count Lymph % (Auto) [place] % (Auto) Lymph # [place] # Baso # Seg Neutrophils % Seg Neuts % (Manual) Lymphocytes % (Manual) Monocytes % (Manual) Nucleated RBC % Seg Neutrophils # Seg Neutrophils # Man Lymphocytes # (Manual) Monocytes # (Manual) Basophils # (Manual) PT INR D-Dimer ABG pH ABG pO2 ABG HCO3 ABG O2 Saturation ABG Base Excess ABG Hemoglobin Oxyhemoglobin Sodium Potassium Chloride Carbon Dioxide BUN Creatinine Glucose POC Glucose 136 H 131 H Lactic Acid Calcium Magnesium Iron TIBC Ferritin AST ALT Lactate Dehydrogenase Troponin T C-Reactive Protein Total Protein Albumin Prealbumin Cholesterol LDL Cholesterol Direct HDL Cholesterol Urine WBC (Auto) Vancomycin Trough Coronavirus (PCR) Crossmatch 07/15/19 07/15/19 07/15/19 00:17 04:35 05:18 WBC 20.6 H RBC 2.41 L Hgb 6.8 L Hct 20.7 L MCV MCH MCHC RDW 20.2 H Plt Count Lymph % (Auto) [place] % (Auto) Lymph # [place] # Baso # Seg Neutrophils % Seg Neuts % (Manual) 92.0 H Lymphocytes % (Manual) 5.0 L Monocytes % (Manual) Nucleated RBC % Seg Neutrophils # Seg Neutrophils # Man 19.0 H Lymphocytes # (Manual) 1.0 L Monocytes # (Manual) Basophils # (Manual) PT INR D-Dimer ABG pH 7.342 L ABG pO2 ABG HCO3 ABG O2 Saturation ABG Base Excess -3.1 L ABG Hemoglobin 7.2 L Oxyhemoglobin 94.9 L Sodium Potassium Chloride Carbon Dioxide BUN Creatinine Glucose POC Glucose 116 H Lactic Acid Calcium Magnesium Iron TIBC Ferritin AST ALT Lactate Dehydrogenase Troponin T C-Reactive Protein Total Protein Albumin Prealbumin Cholesterol LDL Cholesterol Direct HDL Cholesterol Urine WBC (Auto) Vancomycin Trough Coronavirus (PCR) Crossmatch 07/15/19 07/15/19 07/15/19 05:18 05:57 11:28 WBC RBC Hgb Hct MCV MCH MCHC RDW Plt Count Lymph % (Auto) [place] % (Auto) Lymph # [place] # Baso # Seg Neutrophils % Seg Neuts % (Manual) Lymphocytes % (Manual) Monocytes % (Manual) Nucleated RBC % Seg Neutrophils # Seg Neutrophils # Man Lymphocytes # (Manual) Monocytes # (Manual) Basophils # (Manual) PT INR D-Dimer ABG pH ABG pO2 ABG HCO3 ABG O2 Saturation ABG Base Excess ABG Hemoglobin Oxyhemoglobin Sodium Potassium Chloride Carbon Dioxide 20 L BUN 59 H Creatinine Glucose 140 H POC Glucose 139 H 117 H Lactic Acid Calcium Magnesium Iron TIBC Ferritin AST ALT Lactate Dehydrogenase Troponin T C-Reactive Protein Total Protein Albumin Prealbumin Cholesterol LDL Cholesterol Direct HDL Cholesterol Urine WBC (Auto) Vancomycin Trough Coronavirus (PCR) Crossmatch 07/15/19 07/16/19 07/16/19 18:13 00:06 03:43 WBC RBC Hgb Hct MCV MCH MCHC RDW Plt Count Lymph % (Auto) [place] % (Auto) Lymph # [place] # Baso # Seg Neutrophils % Seg Neuts % (Manual) Lymphocytes % (Manual) Monocytes % (Manual) Nucleated RBC % Seg Neutrophils # Seg Neutrophils # Man Lymphocytes # (Manual) Monocytes # (Manual) Basophils # (Manual) PT INR D-Dimer ABG pH 7.344 L ABG pO2 68.6 L ABG HCO3 ABG O2 Saturation ABG Base Excess -3.5 L ABG Hemoglobin 6.1 L Oxyhemoglobin 93.3 L Sodium Potassium Chloride Carbon Dioxide BUN Creatinine Glucose POC Glucose 114 H 119 H Lactic Acid Calcium Magnesium Iron TIBC Ferritin AST ALT Lactate Dehydrogenase Troponin T C-Reactive Protein Total Protein Albumin Prealbumin Cholesterol LDL Cholesterol Direct HDL Cholesterol Urine WBC (Auto) Vancomycin Trough Coronavirus (PCR) Crossmatch 07/16/19 07/16/19 07/16/19 04:41 04:41 12:09 WBC 19.6 H RBC 2.81 L Hgb 7.7 L Hct 24.0 L MCV MCH 27 L MCHC RDW 19.4 H Plt Count 514 H Lymph % (Auto) 6.7 L [place] % (Auto) Lymph # [place] # 1.0 H Baso # Seg Neutrophils % 87.0 H Seg Neuts % (Manual) Lymphocytes % (Manual) Monocytes % (Manual) Nucleated RBC % Seg Neutrophils # 17.0 H Seg Neutrophils # Man Lymphocytes # (Manual) Monocytes # (Manual) Basophils # (Manual) PT INR D-Dimer ABG pH ABG pO2 ABG HCO3 ABG O2 Saturation ABG Base Excess ABG Hemoglobin Oxyhemoglobin Sodium Potassium 5.9 H Chloride Carbon Dioxide 21 L BUN 73 H Creatinine 2.0 H Glucose POC Glucose 141 H Lactic Acid Calcium Magnesium Iron TIBC Ferritin AST ALT Lactate Dehydrogenase Troponin T C-Reactive Protein Total Protein Albumin Prealbumin Cholesterol LDL Cholesterol Direct HDL Cholesterol Urine WBC (Auto) Vancomycin Trough Coronavirus (PCR) Crossmatch 07/16/19 07/16/19 07/17/19 16:19 17:45 00:16 WBC RBC Hgb Hct MCV MCH MCHC RDW Plt Count Lymph % (Auto) [place] % (Auto) Lymph # [place] # Baso # Seg Neutrophils % Seg Neuts % (Manual) Lymphocytes % (Manual) Monocytes % (Manual) Nucleated RBC % Seg Neutrophils # Seg Neutrophils # Man Lymphocytes # (Manual) Monocytes # (Manual) Basophils # (Manual) PT INR D-Dimer ABG pH ABG pO2 ABG HCO3 ABG O2 Saturation ABG Base Excess ABG Hemoglobin Oxyhemoglobin Sodium Potassium 5.1 H Chloride Carbon Dioxide 20 L BUN 72 H Creatinine 1.7 H Glucose 128 H POC Glucose 181 H 164 H Lactic Acid Calcium Magnesium Iron TIBC Ferritin AST ALT Lactate Dehydrogenase Troponin T C-Reactive Protein Total Protein Albumin Prealbumin Cholesterol LDL Cholesterol Direct HDL Cholesterol Urine WBC (Auto) Vancomycin Trough Coronavirus (PCR) Crossmatch 07/17/19 07/17/19 07/17/19 04:20 04:39 04:39 WBC 16.1 H RBC 2.92 L Hgb 8.0 L Hct 25.5 L MCV MCH MCHC 31 L RDW 19.7 H Plt Count 564 H Lymph % (Auto) 3.6 L [place] % (Auto) 7.4 H Lymph # 0.6 L [place] # 1.2 H Baso # Seg Neutrophils % 87.5 H Seg Neuts % (Manual) Lymphocytes % (Manual) Monocytes % (Manual) Nucleated RBC % Seg Neutrophils # 14.1 H Seg Neutrophils # Man Lymphocytes # (Manual) Monocytes # (Manual) Basophils # (Manual) PT INR D-Dimer ABG pH 7.231 L ABG pO2 95.3 H ABG HCO3 ABG O2 Saturation ABG Base Excess -5.0 L ABG Hemoglobin 7.9 L Oxyhemoglobin 94.8 L Sodium Potassium Chloride 107.8 H Carbon Dioxide 21 L BUN 68 H Creatinine Glucose POC Glucose Lactic Acid Calcium Magnesium Iron TIBC Ferritin AST ALT Lactate Dehydrogenase Troponin T C-Reactive Protein Total Protein Albumin Prealbumin Cholesterol LDL Cholesterol Direct HDL Cholesterol Urine WBC (Auto) Vancomycin Trough Coronavirus (PCR) Crossmatch 07/17/19 07/17/19 07/17/19 05:28 12:11 18:48 WBC RBC Hgb Hct MCV MCH MCHC RDW Plt Count Lymph % (Auto) [place] % (Auto) Lymph # [place] # Baso # Seg Neutrophils % Seg Neuts % (Manual) Lymphocytes % (Manual) Monocytes % (Manual) Nucleated RBC % Seg Neutrophils # Seg Neutrophils # Man Lymphocytes # (Manual) Monocytes # (Manual) Basophils # (Manual) PT INR D-Dimer ABG pH ABG pO2 ABG HCO3 ABG O2 Saturation ABG Base Excess ABG Hemoglobin Oxyhemoglobin Sodium Potassium Chloride Carbon Dioxide BUN Creatinine Glucose POC Glucose 121 H 125 H 174 H Lactic Acid Calcium Magnesium Iron TIBC Ferritin AST ALT Lactate Dehydrogenase Troponin T C-Reactive Protein Total Protein Albumin Prealbumin Cholesterol LDL Cholesterol Direct HDL Cholesterol Urine WBC (Auto) Vancomycin Trough Coronavirus (PCR) Crossmatch 07/17/19 07/17/19 07/18/19 19:55 23:57 02:30 WBC RBC Hgb Hct MCV MCH MCHC RDW Plt Count Lymph % (Auto) [place] % (Auto) Lymph # [place] # Baso # Seg Neutrophils % Seg Neuts % (Manual) Lymphocytes % (Manual) Monocytes % (Manual) Nucleated RBC % Seg Neutrophils # Seg Neutrophils # Man Lymphocytes # (Manual) Monocytes # (Manual) Basophils # (Manual) PT INR D-Dimer ABG pH 7.344 L 7.294 L ABG pO2 78.5 L 119.2 H ABG HCO3 ABG O2 Saturation ABG Base Excess -3.3 L -2.6 L ABG Hemoglobin 8.6 L 8.1 L Oxyhemoglobin 94.8 L Sodium Potassium Chloride Carbon Dioxide BUN Creatinine Glucose POC Glucose 148 H Lactic Acid Calcium Magnesium Iron TIBC Ferritin AST ALT Lactate Dehydrogenase Troponin T C-Reactive Protein Total Protein Albumin Prealbumin Cholesterol LDL Cholesterol Direct HDL Cholesterol Urine WBC (Auto) Vancomycin Trough Coronavirus (PCR) Crossmatch 07/18/19 07/18/19 07/18/19 04:49 05:22 05:22 WBC 15.9 H RBC 3.00 L Hgb 8.1 L Hct 26.0 L MCV MCH 27 L MCHC 31 L RDW 19.4 H Plt Count 733 H Lymph % (Auto) 6.3 L [place] % (Auto) 7.4 H Lymph # 1.0 L [place] # 1.2 H Baso # 0.2 H Seg Neutrophils % 83.8 H Seg Neuts % (Manual) Lymphocytes % (Manual) Monocytes % (Manual) Nucleated RBC % Seg Neutrophils # 13.3 H Seg Neutrophils # Man Lymphocytes # (Manual) Monocytes # (Manual) Basophils # (Manual) PT INR D-Dimer ABG pH ABG pO2 ABG HCO3 ABG O2 Saturation ABG Base Excess ABG Hemoglobin Oxyhemoglobin Sodium Potassium Chloride 110.6 H Carbon Dioxide BUN 61 H Creatinine Glucose 109 H POC Glucose 116 H Lactic Acid Calcium Magnesium Iron TIBC Ferritin AST ALT Lactate Dehydrogenase Troponin T C-Reactive Protein Total Protein Albumin Prealbumin Cholesterol LDL Cholesterol Direct HDL Cholesterol Urine WBC (Auto) Vancomycin Trough Coronavirus (PCR) Crossmatch 07/18/19 07/18/19 07/18/19 12:23 18:06 22:20 WBC RBC Hgb Hct MCV MCH MCHC RDW Plt Count Lymph % (Auto) [place] % (Auto) Lymph # [place] # Baso # Seg Neutrophils % Seg Neuts % (Manual) Lymphocytes % (Manual) Monocytes % (Manual) Nucleated RBC % Seg Neutrophils # Seg Neutrophils # Man Lymphocytes # (Manual) Monocytes # (Manual) Basophils # (Manual) PT INR D-Dimer ABG pH 7.338 L ABG pO2 135.1 H ABG HCO3 ABG O2 Saturation ABG Base Excess ABG Hemoglobin 9.2 L Oxyhemoglobin Sodium Potassium Chloride Carbon Dioxide BUN Creatinine Glucose POC Glucose 114 H 113 H Lactic Acid Calcium Magnesium Iron TIBC Ferritin AST ALT Lactate Dehydrogenase Troponin T C-Reactive Protein Total Protein Albumin Prealbumin Cholesterol LDL Cholesterol Direct HDL Cholesterol Urine WBC (Auto) Vancomycin Trough Coronavirus (PCR) Crossmatch 07/18/19 07/19/19 07/19/19 23:33 03:45 05:18 WBC RBC Hgb Hct MCV MCH MCHC RDW Plt Count Lymph % (Auto) [place] % (Auto) Lymph # [place] # Baso # Seg Neutrophils % Seg Neuts % (Manual) Lymphocytes % (Manual) Monocytes % (Manual) Nucleated RBC % Seg Neutrophils # Seg Neutrophils # Man Lymphocytes # (Manual) Monocytes # (Manual) Basophils # (Manual) PT INR D-Dimer ABG pH 7.342 L ABG pO2 95.0 H ABG HCO3 ABG O2 Saturation ABG Base Excess ABG Hemoglobin 8.5 L Oxyhemoglobin Sodium Potassium Chloride Carbon Dioxide BUN Creatinine Glucose POC Glucose 125 H 111 H Lactic Acid Calcium Magnesium Iron TIBC Ferritin AST ALT Lactate Dehydrogenase Troponin T C-Reactive Protein Total Protein Albumin Prealbumin Cholesterol LDL Cholesterol Direct HDL Cholesterol Urine WBC (Auto) Vancomycin Trough Coronavirus (PCR) Crossmatch 07/19/19 07/19/19 07/19/19 08:45 08:45 11:47 WBC 15.9 H RBC 3.31 L Hgb 9.1 L Hct 28.4 L MCV MCH 27 L MCHC RDW 19.1 H Plt Count 858 H Lymph % (Auto) 4.9 L [place] % (Auto) 8.1 H Lymph # 0.8 L [place] # 1.3 H Baso # Seg Neutrophils % 85.5 H Seg Neuts % (Manual) Lymphocytes % (Manual) Monocytes % (Manual) Nucleated RBC % Seg Neutrophils # 13.6 H Seg Neutrophils # Man Lymphocytes # (Manual) Monocytes # (Manual) Basophils # (Manual) PT INR D-Dimer ABG pH ABG pO2 ABG HCO3 ABG O2 Saturation ABG Base Excess ABG Hemoglobin Oxyhemoglobin Sodium Potassium Chloride 111.6 H Carbon Dioxide BUN 50 H Creatinine 0.7 L Glucose 118 H POC Glucose 114 H Lactic Acid Calcium Magnesium Iron TIBC Ferritin AST ALT Lactate Dehydrogenase Troponin T C-Reactive Protein Total Protein Albumin Prealbumin Cholesterol LDL Cholesterol Direct HDL Cholesterol Urine WBC (Auto) Vancomycin Trough Coronavirus (PCR) Crossmatch 07/19/19 07/19/19 07/20/19 18:25 23:44 04:39 WBC RBC Hgb Hct MCV MCH MCHC RDW Plt Count Lymph % (Auto) [place] % (Auto) Lymph # [place] # Baso # Seg Neutrophils % Seg Neuts % (Manual) Lymphocytes % (Manual) Monocytes % (Manual) Nucleated RBC % Seg Neutrophils # Seg Neutrophils # Man Lymphocytes # (Manual) Monocytes # (Manual) Basophils # (Manual) PT INR D-Dimer ABG pH ABG pO2 ABG HCO3 ABG O2 Saturation ABG Base Excess ABG Hemoglobin Oxyhemoglobin Sodium Potassium Chloride 110.3 H Carbon Dioxide BUN 44 H Creatinine 0.6 L Glucose 120 H POC Glucose 115 H 117 H Lactic Acid Calcium Magnesium Iron TIBC Ferritin AST ALT Lactate Dehydrogenase Troponin T C-Reactive Protein Total Protein Albumin Prealbumin Cholesterol LDL Cholesterol Direct HDL Cholesterol Urine WBC (Auto) Vancomycin Trough Coronavirus (PCR) Crossmatch 07/20/19 07/21/19 07/21/19 05:30 11:59 17:40 WBC RBC Hgb Hct MCV MCH MCHC RDW Plt Count Lymph % (Auto) [place] % (Auto) Lymph # [place] # Baso # Seg Neutrophils % Seg Neuts % (Manual) Lymphocytes % (Manual) Monocytes % (Manual) Nucleated RBC % Seg Neutrophils # Seg Neutrophils # Man Lymphocytes # (Manual) Monocytes # (Manual) Basophils # (Manual) PT INR D-Dimer ABG pH ABG pO2 ABG HCO3 ABG O2 Saturation ABG Base Excess ABG Hemoglobin Oxyhemoglobin Sodium Potassium Chloride Carbon Dioxide BUN Creatinine Glucose POC Glucose 131 H 122 H 125 H Lactic Acid Calcium Magnesium Iron TIBC Ferritin AST ALT Lactate Dehydrogenase Troponin T C-Reactive Protein Total Protein Albumin Prealbumin Cholesterol LDL Cholesterol Direct HDL Cholesterol Urine WBC (Auto) Vancomycin Trough Coronavirus (PCR) Crossmatch 07/22/19 07/22/19 07/22/19 05:38 05:38 12:29 WBC 12.6 H RBC 3.19 L Hgb 8.9 L Hct 27.5 L MCV MCH MCHC RDW 18.9 H Plt Count 1101 H* Lymph % (Auto) [place] % (Auto) 12.2 H Lymph # [place] # 1.5 H Baso # Seg Neutrophils % 72.8 H Seg Neuts % (Manual) 76.0 H Lymphocytes % (Manual) 7.0 L Monocytes % (Manual) 14.0 H Nucleated RBC % 1.0 H Seg Neutrophils # 9.2 H Seg Neutrophils # Man 9.6 H Lymphocytes # (Manual) 0.9 L Monocytes # (Manual) 1.8 H Basophils # (Manual) PT INR D-Dimer ABG pH ABG pO2 ABG HCO3 ABG O2 Saturation ABG Base Excess ABG Hemoglobin Oxyhemoglobin Sodium Potassium 3.4 L Chloride Carbon Dioxide BUN 29 H Creatinine 0.5 L Glucose POC Glucose 116 H Lactic Acid Calcium Magnesium Iron TIBC Ferritin AST ALT Lactate Dehydrogenase Troponin T C-Reactive Protein Total Protein Albumin Prealbumin Cholesterol LDL Cholesterol Direct HDL Cholesterol Urine WBC (Auto) Vancomycin Trough Coronavirus (PCR) Crossmatch 07/22/19 07/22/19 07/23/19 18:20 23:51 04:52 WBC RBC Hgb Hct MCV MCH MCHC RDW Plt Count Lymph % (Auto) [place] % (Auto) Lymph # [place] # Baso # Seg Neutrophils % Seg Neuts % (Manual) Lymphocytes % (Manual) Monocytes % (Manual) Nucleated RBC % Seg Neutrophils # Seg Neutrophils # Man Lymphocytes # (Manual) Monocytes # (Manual) Basophils # (Manual) PT INR D-Dimer ABG pH ABG pO2 ABG HCO3 ABG O2 Saturation ABG Base Excess ABG Hemoglobin Oxyhemoglobin Sodium Potassium Chloride Carbon Dioxide BUN 24 H Creatinine 0.4 L Glucose POC Glucose 107 H 110 H Lactic Acid Calcium Magnesium Iron TIBC Ferritin AST ALT Lactate Dehydrogenase Troponin T C-Reactive Protein Total Protein Albumin Prealbumin Cholesterol LDL Cholesterol Direct HDL Cholesterol Urine WBC (Auto) Vancomycin Trough Coronavirus (PCR) Crossmatch 07/23/19 07/23/19 07/24/19 06:00 23:15 04:40 WBC RBC Hgb Hct MCV MCH MCHC RDW Plt Count Lymph % (Auto) [place] % (Auto) Lymph # [place] # Baso # Seg Neutrophils % Seg Neuts % (Manual) Lymphocytes % (Manual) Monocytes % (Manual) Nucleated RBC % Seg Neutrophils # Seg Neutrophils # Man Lymphocytes # (Manual) Monocytes # (Manual) Basophils # (Manual) PT INR D-Dimer ABG pH ABG pO2 73.5 L ABG HCO3 27.0 H 28.5 H ABG O2 Saturation 94.5 L ABG Base Excess ABG Hemoglobin 9.4 L 8.9 L Oxyhemoglobin 94.0 L 92.7 L Sodium Potassium Chloride Carbon Dioxide BUN Creatinine Glucose POC Glucose 117 H Lactic Acid Calcium Magnesium Iron TIBC Ferritin AST ALT Lactate Dehydrogenase Troponin T C-Reactive Protein Total Protein Albumin Prealbumin Cholesterol LDL Cholesterol Direct HDL Cholesterol Urine WBC (Auto) Vancomycin Trough Coronavirus (PCR) Crossmatch 07/24/19 07/24/19 07/25/19 05:25 12:06 00:16 WBC RBC Hgb Hct MCV MCH MCHC RDW Plt Count Lymph % (Auto) [place] % (Auto) Lymph # [place] # Baso # Seg Neutrophils % Seg Neuts % (Manual) Lymphocytes % (Manual) Monocytes % (Manual) Nucleated RBC % Seg Neutrophils # Seg Neutrophils # Man Lymphocytes # (Manual) Monocytes # (Manual) Basophils # (Manual) PT INR D-Dimer ABG pH ABG pO2 ABG HCO3 ABG O2 Saturation ABG Base Excess ABG Hemoglobin Oxyhemoglobin Sodium Potassium Chloride Carbon Dioxide BUN Creatinine Glucose POC Glucose 114 H 108 H 106 H Lactic Acid Calcium Magnesium Iron TIBC Ferritin AST ALT Lactate Dehydrogenase Troponin T C-Reactive Protein Total Protein Albumin Prealbumin Cholesterol LDL Cholesterol Direct HDL Cholesterol Urine WBC (Auto) Vancomycin Trough Coronavirus (PCR) Crossmatch 07/25/19 07/25/19 07/25/19 05:14 05:14 05:17 WBC 17.8 H RBC 3.32 L Hgb 9.2 L Hct 28.6 L MCV MCH MCHC RDW 19.9 H Plt Count 994 H Lymph % (Auto) [place] % (Auto) Lymph # [place] # Baso # Seg Neutrophils % Seg Neuts % (Manual) 82.0 H Lymphocytes % (Manual) 5.0 L Monocytes % (Manual) Nucleated RBC % Seg Neutrophils # Seg Neutrophils # Man 14.6 H Lymphocytes # (Manual) 0.9 L Monocytes # (Manual) 1.2 H Basophils # (Manual) PT INR D-Dimer ABG pH ABG pO2 ABG HCO3 ABG O2 Saturation ABG Base Excess ABG Hemoglobin Oxyhemoglobin Sodium Potassium Chloride Carbon Dioxide BUN Creatinine 0.4 L Glucose 110 H POC Glucose 107 H Lactic Acid Calcium Magnesium Iron TIBC Ferritin AST ALT Lactate Dehydrogenase Troponin T C-Reactive Protein Total Protein Albumin Prealbumin Cholesterol LDL Cholesterol Direct HDL Cholesterol Urine WBC (Auto) Vancomycin Trough Coronavirus (PCR) Crossmatch 07/25/19 07/25/19 07/26/19 11:55 23:49 06:01 WBC RBC Hgb Hct MCV MCH MCHC RDW Plt Count Lymph % (Auto) [place] % (Auto) Lymph # [place] # Baso # Seg Neutrophils % Seg Neuts % (Manual) Lymphocytes % (Manual) Monocytes % (Manual) Nucleated RBC % Seg Neutrophils # Seg Neutrophils # Man Lymphocytes # (Manual) Monocytes # (Manual) Basophils # (Manual) PT INR D-Dimer ABG pH ABG pO2 ABG HCO3 ABG O2 Saturation ABG Base Excess ABG Hemoglobin Oxyhemoglobin Sodium Potassium Chloride Carbon Dioxide BUN Creatinine Glucose POC Glucose 123 H 118 H 106 H Lactic Acid Calcium Magnesium Iron TIBC Ferritin AST ALT Lactate Dehydrogenase Troponin T C-Reactive Protein Total Protein Albumin Prealbumin Cholesterol LDL Cholesterol Direct HDL Cholesterol Urine WBC (Auto) Vancomycin Trough Coronavirus (PCR) Crossmatch 07/26/19 07/27/19 07/27/19 17:02 00:28 05:16 WBC RBC Hgb Hct MCV MCH MCHC RDW Plt Count Lymph % (Auto) [place] % (Auto) Lymph # [place] # Baso # Seg Neutrophils % Seg Neuts % (Manual) Lymphocytes % (Manual) Monocytes % (Manual) Nucleated RBC % Seg Neutrophils # Seg Neutrophils # Man Lymphocytes # (Manual) Monocytes # (Manual) Basophils # (Manual) PT INR D-Dimer ABG pH ABG pO2 63.4 L ABG HCO3 31.3 H ABG O2 Saturation 92.7 L ABG Base Excess 6.3 H ABG Hemoglobin 7.6 L Oxyhemoglobin 90.9 L Sodium Potassium Chloride Carbon Dioxide BUN Creatinine Glucose POC Glucose 116 H 158 H Lactic Acid Calcium Magnesium Iron TIBC Ferritin AST ALT Lactate Dehydrogenase Troponin T C-Reactive Protein Total Protein Albumin Prealbumin Cholesterol LDL Cholesterol Direct HDL Cholesterol Urine WBC (Auto) Vancomycin Trough Coronavirus (PCR) Crossmatch 07/28/19 07/28/19 07/28/19 10:13 10:13 23:54 WBC 18.5 H RBC 3.20 L Hgb 8.8 L Hct 26.8 L MCV MCH 27 L MCHC RDW 19.9 H Plt Count 730 H Lymph % (Auto) [place] % (Auto) Lymph # [place] # Baso # Seg Neutrophils % Seg Neuts % (Manual) Lymphocytes % (Manual) Monocytes % (Manual) Nucleated RBC % Seg Neutrophils # Seg Neutrophils # Man Lymphocytes # (Manual) Monocytes # (Manual) Basophils # (Manual) PT INR D-Dimer ABG pH ABG pO2 ABG HCO3 ABG O2 Saturation ABG Base Excess ABG Hemoglobin Oxyhemoglobin Sodium Potassium 3.2 L Chloride 97.5 L Carbon Dioxide 31 H BUN Creatinine 0.5 L Glucose POC Glucose 120 H Lactic Acid Calcium Magnesium Iron TIBC Ferritin AST ALT Lactate Dehydrogenase Troponin T C-Reactive Protein Total Protein Albumin Prealbumin Cholesterol LDL Cholesterol Direct HDL Cholesterol Urine WBC (Auto) Vancomycin Trough Coronavirus (PCR) Crossmatch 07/29/19 07/29/19 07/29/19 11:57 17:43 Unknown WBC RBC Hgb Hct MCV MCH MCHC RDW Plt Count Lymph % (Auto) [place] % (Auto) Lymph # [place] # Baso # Seg Neutrophils % Seg Neuts % (Manual) Lymphocytes % (Manual) Monocytes % (Manual) Nucleated RBC % Seg Neutrophils # Seg Neutrophils # Man Lymphocytes # (Manual) Monocytes # (Manual) Basophils # (Manual) PT INR D-Dimer ABG pH ABG pO2 ABG HCO3 ABG O2 Saturation ABG Base Excess ABG Hemoglobin Oxyhemoglobin Sodium Potassium Chloride Carbon Dioxide BUN Creatinine Glucose POC Glucose 112 H Lactic Acid Calcium Magnesium Iron TIBC Ferritin AST ALT Lactate Dehydrogenase Troponin T C-Reactive Protein Total Protein Albumin Prealbumin Cholesterol LDL Cholesterol Direct HDL Cholesterol Urine WBC (Auto) 63.0 H Vancomycin Trough Coronavirus (PCR) Positive A Crossmatch 07/30/19 07/30/19 07/30/19 00:20 04:35 04:35 WBC 24.3 H RBC 3.12 L Hgb 8.5 L Hct 26.3 L MCV MCH 27 L MCHC RDW 20.2 H Plt Count 550 H Lymph % (Auto) [place] % (Auto) Lymph # [place] # Baso # Seg Neutrophils % Seg Neuts % (Manual) Lymphocytes % (Manual) Monocytes % (Manual) Nucleated RBC % Seg Neutrophils # Seg Neutrophils # Man Lymphocytes # (Manual) Monocytes # (Manual) Basophils # (Manual) PT INR D-Dimer ABG pH ABG pO2 ABG HCO3 ABG O2 Saturation ABG Base Excess ABG Hemoglobin Oxyhemoglobin Sodium Potassium 3.0 L Chloride 96.3 L Carbon Dioxide 32 H BUN Creatinine 0.5 L Glucose POC Glucose 106 H Lactic Acid Calcium Magnesium Iron TIBC Ferritin AST ALT Lactate Dehydrogenase Troponin T C-Reactive Protein Total Protein Albumin Prealbumin Cholesterol LDL Cholesterol Direct HDL Cholesterol Urine WBC (Auto) Vancomycin Trough Coronavirus (PCR) Crossmatch 07/31/19 07/31/19 07/31/19 04:42 04:42 11:33 WBC 23.8 H RBC 3.10 L Hgb 8.4 L Hct 26.1 L MCV MCH 27 L MCHC RDW 19.6 H Plt Count 561 H Lymph % (Auto) [place] % (Auto) Lymph # [place] # Baso # Seg Neutrophils % Seg Neuts % (Manual) Lymphocytes % (Manual) Monocytes % (Manual) Nucleated RBC % Seg Neutrophils # Seg Neutrophils # Man Lymphocytes # (Manual) Monocytes # (Manual) Basophils # (Manual) PT INR D-Dimer ABG pH ABG pO2 ABG HCO3 ABG O2 Saturation ABG Base Excess ABG Hemoglobin Oxyhemoglobin Sodium 135 L Potassium Chloride 93.9 L Carbon Dioxide 32 H BUN Creatinine 0.4 L Glucose POC Glucose 116 H Lactic Acid Calcium Magnesium Iron TIBC Ferritin AST ALT Lactate Dehydrogenase Troponin T C-Reactive Protein Total Protein Albumin 1.6 L Prealbumin 0.037 L Cholesterol LDL Cholesterol Direct HDL Cholesterol Urine WBC (Auto) Vancomycin Trough Coronavirus (PCR) Crossmatch 07/31/19 08/01/19 08/01/19 23:33 04:57 04:57 WBC 26.7 H RBC 3.12 L Hgb 8.5 L Hct 26.3 L MCV MCH 27 L MCHC RDW 19.2 H Plt Count 602 H Lymph % (Auto) [place] % (Auto) Lymph # [place] # Baso # Seg Neutrophils % Seg Neuts % (Manual) 93.0 H Lymphocytes % (Manual) 2.0 L Monocytes % (Manual) Nucleated RBC % Seg Neutrophils # Seg Neutrophils # Man 24.8 H Lymphocytes # (Manual) 0.5 L Monocytes # (Manual) 1.1 H Basophils # (Manual) PT INR D-Dimer ABG pH ABG pO2 ABG HCO3 ABG O2 Saturation ABG Base Excess ABG Hemoglobin Oxyhemoglobin Sodium 132 L Potassium Chloride 93.8 L Carbon Dioxide 31 H BUN Creatinine 0.3 L Glucose POC Glucose 148 H Lactic Acid Calcium 8.1 L Magnesium Iron TIBC Ferritin AST ALT Lactate Dehydrogenase Troponin T C-Reactive Protein Total Protein Albumin Prealbumin Cholesterol LDL Cholesterol Direct HDL Cholesterol Urine WBC (Auto) Vancomycin Trough Coronavirus (PCR) Crossmatch 08/01/19 08/02/19 08/02/19 12:16 00:22 05:24 WBC RBC Hgb Hct MCV MCH MCHC RDW Plt Count Lymph % (Auto) [place] % (Auto) Lymph # [place] # Baso # Seg Neutrophils % Seg Neuts % (Manual) Lymphocytes % (Manual) Monocytes % (Manual) Nucleated RBC % Seg Neutrophils # Seg Neutrophils # Man Lymphocytes # (Manual) Monocytes # (Manual) Basophils # (Manual) PT INR D-Dimer ABG pH ABG pO2 ABG HCO3 ABG O2 Saturation ABG Base Excess ABG Hemoglobin Oxyhemoglobin Sodium Potassium Chloride Carbon Dioxide BUN Creatinine Glucose POC Glucose 120 H 119 H 113 H Lactic Acid Calcium Magnesium Iron TIBC Ferritin AST ALT Lactate Dehydrogenase Troponin T C-Reactive Protein Total Protein Albumin Prealbumin Cholesterol LDL Cholesterol Direct HDL Cholesterol Urine WBC (Auto) Vancomycin Trough Coronavirus (PCR) Crossmatch 08/03/19 08/03/19 08/03/19 05:20 12:01 23:48 WBC RBC Hgb Hct MCV MCH MCHC RDW Plt Count Lymph % (Auto) [place] % (Auto) Lymph # [place] # Baso # Seg Neutrophils % Seg Neuts % (Manual) Lymphocytes % (Manual) Monocytes % (Manual) Nucleated RBC % Seg Neutrophils # Seg Neutrophils # Man Lymphocytes # (Manual) Monocytes # (Manual) Basophils # (Manual) PT INR D-Dimer ABG pH ABG pO2 ABG HCO3 ABG O2 Saturation ABG Base Excess ABG Hemoglobin Oxyhemoglobin Sodium Potassium Chloride Carbon Dioxide BUN Creatinine Glucose POC Glucose 118 H 106 H 120 H Lactic Acid Calcium Magnesium Iron TIBC Ferritin AST ALT Lactate Dehydrogenase Troponin T C-Reactive Protein Total Protein Albumin Prealbumin Cholesterol LDL Cholesterol Direct HDL Cholesterol Urine WBC (Auto) Vancomycin Trough Coronavirus (PCR) Crossmatch 08/04/19 08/04/19 08/04/19 05:38 05:38 06:29 WBC 26.1 H RBC 2.77 L Hgb 7.5 L Hct 23.2 L MCV MCH 27 L MCHC RDW 19.2 H Plt Count 648 H Lymph % (Auto) [place] % (Auto) Lymph # [place] # Baso # Seg Neutrophils % Seg Neuts % (Manual) 90.5 H Lymphocytes % (Manual) 3.5 L Monocytes % (Manual) Nucleated RBC % Seg Neutrophils # Seg Neutrophils # Man 23.6 H Lymphocytes # (Manual) 0.9 L Monocytes # (Manual) 1.2 H Basophils # (Manual) PT INR D-Dimer ABG pH ABG pO2 ABG HCO3 ABG O2 Saturation ABG Base Excess ABG Hemoglobin Oxyhemoglobin Sodium 132 L Potassium 3.4 L D Chloride 92.7 L Carbon Dioxide 33 H BUN Creatinine 0.2 L Glucose POC Glucose 108 H Lactic Acid Calcium 8.1 L Magnesium Iron TIBC Ferritin AST ALT Lactate Dehydrogenase Troponin T C-Reactive Protein Total Protein Albumin Prealbumin Cholesterol LDL Cholesterol Direct HDL Cholesterol Urine WBC (Auto) Vancomycin Trough Coronavirus (PCR) Crossmatch 08/04/19 08/05/19 08/05/19 12:30 04:58 04:58 WBC 21.0 H RBC 2.63 L Hgb 7.2 L Hct 21.9 L MCV 83 L MCH 27 L MCHC RDW 18.9 H Plt Count 691 H Lymph % (Auto) [place] % (Auto) Lymph # [place] # Baso # Seg Neutrophils % Seg Neuts % (Manual) 86.0 H Lymphocytes % (Manual) 3.0 L Monocytes % (Manual) 10.0 H Nucleated RBC % Seg Neutrophils # Seg Neutrophils # Man 18.1 H Lymphocytes # (Manual) 0.6 L Monocytes # (Manual) 2.1 H Basophils # (Manual) PT INR D-Dimer ABG pH ABG pO2 ABG HCO3 ABG O2 Saturation ABG Base Excess ABG Hemoglobin Oxyhemoglobin Sodium 134 L Potassium 3.2 L Chloride 93.2 L Carbon Dioxide 34 H BUN 8 L Creatinine 0.3 L Glucose POC Glucose 138 H Lactic Acid Calcium 8.1 L Magnesium Iron TIBC Ferritin AST ALT Lactate Dehydrogenase Troponin T C-Reactive Protein Total Protein Albumin Prealbumin Cholesterol LDL Cholesterol Direct HDL Cholesterol Urine WBC (Auto) Vancomycin Trough Coronavirus (PCR) Crossmatch 08/05/19 08/05/19 08/05/19 11:53 17:57 23:58 WBC RBC Hgb Hct MCV MCH MCHC RDW Plt Count Lymph % (Auto) [place] % (Auto) Lymph # [place] # Baso # Seg Neutrophils % Seg Neuts % (Manual) Lymphocytes % (Manual) Monocytes % (Manual) Nucleated RBC % Seg Neutrophils # Seg Neutrophils # Man Lymphocytes # (Manual) Monocytes # (Manual) Basophils # (Manual) PT INR D-Dimer ABG pH ABG pO2 ABG HCO3 ABG O2 Saturation ABG Base Excess ABG Hemoglobin Oxyhemoglobin Sodium Potassium Chloride Carbon Dioxide BUN Creatinine Glucose POC Glucose 106 H 111 H 116 H Lactic Acid Calcium Magnesium Iron TIBC Ferritin AST ALT Lactate Dehydrogenase Troponin T C-Reactive Protein Total Protein Albumin Prealbumin Cholesterol LDL Cholesterol Direct HDL Cholesterol Urine WBC (Auto) Vancomycin Trough Coronavirus (PCR) Crossmatch 08/06/19 08/06/19 08/06/19 04:11 04:11 06:04 WBC 20.8 H RBC 2.80 L Hgb 7.6 L Hct 23.5 L MCV MCH 27 L MCHC RDW 19.0 H Plt Count 723 H Lymph % (Auto) [place] % (Auto) Lymph # [place] # Baso # Seg Neutrophils % Seg Neuts % (Manual) 88.0 H Lymphocytes % (Manual) 3.0 L Monocytes % (Manual) Nucleated RBC % Seg Neutrophils # Seg Neutrophils # Man 18.3 H Lymphocytes # (Manual) 0.6 L Monocytes # (Manual) Basophils # (Manual) 0.2 H PT INR D-Dimer ABG pH ABG pO2 ABG HCO3 ABG O2 Saturation ABG Base Excess ABG Hemoglobin Oxyhemoglobin Sodium Potassium 3.4 L Chloride 95.2 L Carbon Dioxide 32 H BUN Creatinine 0.3 L Glucose POC Glucose 108 H Lactic Acid Calcium 8.2 L Magnesium Iron TIBC Ferritin AST ALT Lactate Dehydrogenase Troponin T C-Reactive Protein Total Protein Albumin Prealbumin Cholesterol LDL Cholesterol Direct HDL Cholesterol Urine WBC (Auto) Vancomycin Trough Coronavirus (PCR) Crossmatch 08/06/19 08/06/19 08/07/19 12:23 17:13 00:21 WBC RBC Hgb Hct MCV MCH MCHC RDW Plt Count Lymph % (Auto) [place] % (Auto) Lymph # [place] # Baso # Seg Neutrophils % Seg Neuts % (Manual) Lymphocytes % (Manual) Monocytes % (Manual) Nucleated RBC % Seg Neutrophils # Seg Neutrophils # Man Lymphocytes # (Manual) Monocytes # (Manual) Basophils # (Manual) PT INR D-Dimer ABG pH ABG pO2 ABG HCO3 ABG O2 Saturation ABG Base Excess ABG Hemoglobin Oxyhemoglobin Sodium Potassium Chloride Carbon Dioxide BUN Creatinine Glucose POC Glucose 112 H 132 H 147 H Lactic Acid Calcium Magnesium Iron TIBC Ferritin AST ALT Lactate Dehydrogenase Troponin T C-Reactive Protein Total Protein Albumin Prealbumin Cholesterol LDL Cholesterol Direct HDL Cholesterol Urine WBC (Auto) Vancomycin Trough Coronavirus (PCR) Crossmatch 08/07/19 08/07/19 08/07/19 05:16 05:23 05:23 WBC 30.3 H RBC 2.69 L Hgb 7.1 L Hct 22.2 L MCV 83 L MCH 27 L MCHC RDW 19.1 H Plt Count 650 H Lymph % (Auto) [place] % (Auto) Lymph # [place] # Baso # Seg Neutrophils % Seg Neuts % (Manual) 88.0 H Lymphocytes % (Manual) 5.0 L Monocytes % (Manual) Nucleated RBC % Seg Neutrophils # Seg Neutrophils # Man 26.7 H Lymphocytes # (Manual) Monocytes # (Manual) 2.1 H Basophils # (Manual) PT INR D-Dimer ABG pH ABG pO2 ABG HCO3 ABG O2 Saturation ABG Base Excess ABG Hemoglobin Oxyhemoglobin Sodium 135 L Potassium 3.4 L Chloride 95.4 L Carbon Dioxide 32 H BUN Creatinine 0.4 L Glucose 120 H POC Glucose 120 H Lactic Acid Calcium 7.7 L Magnesium Iron TIBC Ferritin AST ALT Lactate Dehydrogenase Troponin T C-Reactive Protein Total Protein Albumin Prealbumin Cholesterol LDL Cholesterol Direct HDL Cholesterol Urine WBC (Auto) Vancomycin Trough Coronavirus (PCR) Crossmatch 08/07/19 08/07/19 08/07/19 10:24 10:24 11:10 WBC RBC Hgb Hct MCV MCH MCHC RDW Plt Count Lymph % (Auto) [place] % (Auto) Lymph # [place] # Baso # Seg Neutrophils % Seg Neuts % (Manual) Lymphocytes % (Manual) Monocytes % (Manual) Nucleated RBC % Seg Neutrophils # Seg Neutrophils # Man Lymphocytes # (Manual) Monocytes # (Manual) Basophils # (Manual) PT INR D-Dimer 1808.06 H ABG pH ABG pO2 73.3 L ABG HCO3 33.9 H ABG O2 Saturation ABG Base Excess 9.0 H ABG Hemoglobin 6.3 L Oxyhemoglobin 94.3 L Sodium Potassium Chloride Carbon Dioxide BUN Creatinine Glucose POC Glucose Lactic Acid Calcium Magnesium Iron TIBC Ferritin AST ALT Lactate Dehydrogenase Troponin T C-Reactive Protein 11.10 H Total Protein Albumin Prealbumin Cholesterol LDL Cholesterol Direct HDL Cholesterol Urine WBC (Auto) Vancomycin Trough Coronavirus (PCR) Crossmatch 08/07/19 08/08/19 08/08/19 12:01 04:41 04:41 WBC 22.1 H RBC 2.82 L Hgb 7.7 L Hct 23.6 L MCV MCH 27 L MCHC RDW 19.1 H Plt Count 722 H Lymph % (Auto) [place] % (Auto) Lymph # [place] # Baso # Seg Neutrophils % Seg Neuts % (Manual) 90.0 H Lymphocytes % (Manual) 3.0 L Monocytes % (Manual) Nucleated RBC % Seg Neutrophils # Seg Neutrophils # Man 19.9 H Lymphocytes # (Manual) 0.7 L Monocytes # (Manual) 1.3 H Basophils # (Manual) PT INR D-Dimer ABG pH ABG pO2 ABG HCO3 ABG O2 Saturation ABG Base Excess ABG Hemoglobin Oxyhemoglobin Sodium 136 L Potassium Chloride 97.8 L Carbon Dioxide BUN Creatinine 0.3 L Glucose 105 H POC Glucose 130 H Lactic Acid Calcium 7.8 L Magnesium Iron TIBC Ferritin AST ALT Lactate Dehydrogenase Troponin T C-Reactive Protein Total Protein Albumin Prealbumin Cholesterol LDL Cholesterol Direct HDL Cholesterol Urine WBC (Auto) Vancomycin Trough Coronavirus (PCR) Crossmatch 08/08/19 08/08/19 08/09/19 11:46 18:35 00:12 WBC RBC Hgb Hct MCV MCH MCHC RDW Plt Count Lymph % (Auto) [place] % (Auto) Lymph # [place] # Baso # Seg Neutrophils % Seg Neuts % (Manual) Lymphocytes % (Manual) Monocytes % (Manual) Nucleated RBC % Seg Neutrophils # Seg Neutrophils # Man Lymphocytes # (Manual) Monocytes # (Manual) Basophils # (Manual) PT INR D-Dimer ABG pH ABG pO2 ABG HCO3 ABG O2 Saturation ABG Base Excess ABG Hemoglobin Oxyhemoglobin Sodium Potassium Chloride Carbon Dioxide BUN Creatinine Glucose POC Glucose 117 H 117 H 117 H Lactic Acid Calcium Magnesium Iron TIBC Ferritin AST ALT Lactate Dehydrogenase Troponin T C-Reactive Protein Total Protein Albumin Prealbumin Cholesterol LDL Cholesterol Direct HDL Cholesterol Urine WBC (Auto) Vancomycin Trough Coronavirus (PCR) Crossmatch 08/09/19 08/09/19 08/09/19 05:33 12:22 17:48 WBC RBC Hgb Hct MCV MCH MCHC RDW Plt Count Lymph % (Auto) [place] % (Auto) Lymph # [place] # Baso # Seg Neutrophils % Seg Neuts % (Manual) Lymphocytes % (Manual) Monocytes % (Manual) Nucleated RBC % Seg Neutrophils # Seg Neutrophils # Man Lymphocytes # (Manual) Monocytes # (Manual) Basophils # (Manual) PT INR D-Dimer ABG pH ABG pO2 ABG HCO3 ABG O2 Saturation ABG Base Excess ABG Hemoglobin Oxyhemoglobin Sodium Potassium Chloride Carbon Dioxide BUN Creatinine Glucose POC Glucose 119 H 133 H 123 H Lactic Acid Calcium Magnesium Iron TIBC Ferritin AST ALT Lactate Dehydrogenase Troponin T C-Reactive Protein Total Protein Albumin Prealbumin Cholesterol LDL Cholesterol Direct HDL Cholesterol Urine WBC (Auto) Vancomycin Trough Coronavirus (PCR) Crossmatch 08/09/19 08/09/19 08/10/19 17:59 18:15 00:02 WBC RBC Hgb 6.7 L Hct 20.4 L MCV MCH MCHC RDW Plt Count Lymph % (Auto) [place] % (Auto) Lymph # [place] # Baso # Seg Neutrophils % Seg Neuts % (Manual) Lymphocytes % (Manual) Monocytes % (Manual) Nucleated RBC % Seg Neutrophils # Seg Neutrophils # Man Lymphocytes # (Manual) Monocytes # (Manual) Basophils # (Manual) PT INR D-Dimer ABG pH ABG pO2 ABG HCO3 ABG O2 Saturation ABG Base Excess ABG Hemoglobin Oxyhemoglobin Sodium Potassium Chloride Carbon Dioxide BUN Creatinine Glucose POC Glucose 124 H Lactic Acid Calcium Magnesium Iron TIBC Ferritin AST ALT Lactate Dehydrogenase Troponin T C-Reactive Protein Total Protein Albumin Prealbumin Cholesterol LDL Cholesterol Direct HDL Cholesterol Urine WBC (Auto) Vancomycin Trough Coronavirus (PCR) Crossmatch See Detail 08/10/19 08/10/19 08/10/19 05:47 08:00 08:00 WBC 16.9 H RBC 2.94 L Hgb 8.2 L Hct 24.9 L MCV MCH MCHC RDW 17.0 H Plt Count 661 H Lymph % (Auto) [place] % (Auto) Lymph # [place] # Baso # Seg Neutrophils % Seg Neuts % (Manual) Lymphocytes % (Manual) Monocytes % (Manual) Nucleated RBC % Seg Neutrophils # Seg Neutrophils # Man Lymphocytes # (Manual) Monocytes # (Manual) Basophils # (Manual) PT INR D-Dimer ABG pH ABG pO2 ABG HCO3 ABG O2 Saturation ABG Base Excess ABG Hemoglobin Oxyhemoglobin Sodium Potassium Chloride Carbon Dioxide BUN Creatinine 0.3 L Glucose 116 H POC Glucose 148 H Lactic Acid Calcium 7.7 L Magnesium Iron TIBC Ferritin AST ALT Lactate Dehydrogenase Troponin T C-Reactive Protein Total Protein Albumin Prealbumin Cholesterol LDL Cholesterol Direct HDL Cholesterol Urine WBC (Auto) Vancomycin Trough Coronavirus (PCR) Crossmatch 08/10/19 08/10/19 08/10/19 12:38 18:06 23:56 WBC RBC Hgb Hct MCV MCH MCHC RDW Plt Count Lymph % (Auto) [place] % (Auto) Lymph # [place] # Baso # Seg Neutrophils % Seg Neuts % (Manual) Lymphocytes % (Manual) Monocytes % (Manual) Nucleated RBC % Seg Neutrophils # Seg Neutrophils # Man Lymphocytes # (Manual) Monocytes # (Manual) Basophils # (Manual) PT INR D-Dimer ABG pH ABG pO2 ABG HCO3 ABG O2 Saturation ABG Base Excess ABG Hemoglobin Oxyhemoglobin Sodium Potassium Chloride Carbon Dioxide BUN Creatinine Glucose POC Glucose 113 H 126 H 115 H Lactic Acid Calcium Magnesium Iron TIBC Ferritin AST ALT Lactate Dehydrogenase Troponin T C-Reactive Protein Total Protein Albumin Prealbumin Cholesterol LDL Cholesterol Direct HDL Cholesterol Urine WBC (Auto) Vancomycin Trough Coronavirus (PCR) Crossmatch 08/10/19 08/11/19 08/12/19 Unknown 18:10 03:30 WBC 14.4 H RBC 2.58 L Hgb 7.4 L Hct 22.1 L MCV MCH MCHC RDW 17.4 H Plt Count 786 H Lymph % (Auto) [place] % (Auto) Lymph # [place] # Baso # Seg Neutrophils % Seg Neuts % (Manual) Lymphocytes % (Manual) Monocytes % (Manual) Nucleated RBC % Seg Neutrophils # Seg Neutrophils # Man Lymphocytes # (Manual) Monocytes # (Manual) Basophils # (Manual) PT INR D-Dimer ABG pH ABG pO2 ABG HCO3 ABG O2 Saturation ABG Base Excess ABG Hemoglobin Oxyhemoglobin Sodium Potassium Chloride Carbon Dioxide BUN Creatinine Glucose POC Glucose 106 H Lactic Acid Calcium Magnesium Iron TIBC Ferritin AST ALT Lactate Dehydrogenase Troponin T C-Reactive Protein Total Protein Albumin Prealbumin Cholesterol LDL Cholesterol Direct HDL Cholesterol Urine WBC (Auto) Vancomycin Trough Coronavirus (PCR) Positive A Crossmatch 08/12/19 08/12/19 08/13/19 03:30 12:08 05:25 WBC RBC Hgb Hct MCV MCH MCHC RDW Plt Count Lymph % (Auto) [place] % (Auto) Lymph # [place] # Baso # Seg Neutrophils % Seg Neuts % (Manual) Lymphocytes % (Manual) Monocytes % (Manual) Nucleated RBC % Seg Neutrophils # Seg Neutrophils # Man Lymphocytes # (Manual) Monocytes # (Manual) Basophils # (Manual) PT INR D-Dimer ABG pH ABG pO2 ABG HCO3 ABG O2 Saturation ABG Base Excess ABG Hemoglobin Oxyhemoglobin Sodium Potassium Chloride Carbon Dioxide BUN 7 L Creatinine 0.3 L Glucose 117 H POC Glucose 112 H 126 H Lactic Acid Calcium 7.8 L Magnesium Iron TIBC Ferritin AST ALT Lactate Dehydrogenase Troponin T C-Reactive Protein Total Protein Albumin Prealbumin Cholesterol LDL Cholesterol Direct HDL Cholesterol Urine WBC (Auto) Vancomycin Trough Coronavirus (PCR) Crossmatch 08/13/19 08/13/19 08/13/19 11:36 17:10 19:06 WBC RBC Hgb Hct MCV MCH MCHC RDW Plt Count Lymph % (Auto) [place] % (Auto) Lymph # [place] # Baso # Seg Neutrophils % Seg Neuts % (Manual) Lymphocytes % (Manual) Monocytes % (Manual) Nucleated RBC % Seg Neutrophils # Seg Neutrophils # Man Lymphocytes # (Manual) Monocytes # (Manual) Basophils # (Manual) PT INR D-Dimer ABG pH ABG pO2 105.0 H ABG HCO3 28.5 H ABG O2 Saturation ABG Base Excess 3.5 H ABG Hemoglobin 7.8 L Oxyhemoglobin Sodium Potassium Chloride Carbon Dioxide BUN Creatinine Glucose POC Glucose 143 H 107 H Lactic Acid Calcium Magnesium Iron TIBC Ferritin AST ALT Lactate Dehydrogenase Troponin T C-Reactive Protein Total Protein Albumin Prealbumin Cholesterol LDL Cholesterol Direct HDL Cholesterol Urine WBC (Auto) Vancomycin Trough Coronavirus (PCR) Crossmatch 08/13/19 08/14/19 08/14/19 23:23 05:00 05:00 WBC 14.3 H RBC 2.76 L Hgb 7.8 L Hct 23.9 L MCV MCH MCHC RDW 18.7 H Plt Count 896 H Lymph % (Auto) [place] % (Auto) Lymph # [place] # Baso # Seg Neutrophils % Seg Neuts % (Manual) Lymphocytes % (Manual) Monocytes % (Manual) Nucleated RBC % Seg Neutrophils # Seg Neutrophils # Man Lymphocytes # (Manual) Monocytes # (Manual) Basophils # (Manual) PT INR D-Dimer ABG pH ABG pO2 ABG HCO3 ABG O2 Saturation ABG Base Excess ABG Hemoglobin Oxyhemoglobin Sodium Potassium Chloride Carbon Dioxide BUN 6 L Creatinine 0.3 L Glucose POC Glucose 125 H Lactic Acid Calcium 8.2 L Magnesium Iron TIBC Ferritin AST ALT Lactate Dehydrogenase Troponin T C-Reactive Protein Total Protein Albumin Prealbumin Cholesterol LDL Cholesterol Direct HDL Cholesterol Urine WBC (Auto) Vancomycin Trough Coronavirus (PCR) Crossmatch 08/14/19 08/15/19 08/15/19 05:07 00:25 05:42 WBC RBC Hgb Hct MCV MCH MCHC RDW Plt Count Lymph % (Auto) [place] % (Auto) Lymph # [place] # Baso # Seg Neutrophils % Seg Neuts % (Manual) Lymphocytes % (Manual) Monocytes % (Manual) Nucleated RBC % Seg Neutrophils # Seg Neutrophils # Man Lymphocytes # (Manual) Monocytes # (Manual) Basophils # (Manual) PT INR D-Dimer ABG pH ABG pO2 ABG HCO3 ABG O2 Saturation ABG Base Excess ABG Hemoglobin Oxyhemoglobin Sodium Potassium Chloride Carbon Dioxide BUN Creatinine Glucose POC Glucose 128 H 117 H 115 H Lactic Acid Calcium Magnesium Iron TIBC Ferritin AST ALT Lactate Dehydrogenase Troponin T C-Reactive Protein Total Protein Albumin Prealbumin Cholesterol LDL Cholesterol Direct HDL Cholesterol Urine WBC (Auto) Vancomycin Trough Coronavirus (PCR) Crossmatch 08/15/19 08/15/19 08/15/19 06:10 06:10 06:10 WBC 11.6 H RBC 2.68 L Hgb 7.7 L Hct 23.3 L MCV MCH MCHC RDW 19.2 H Plt Count 885 H Lymph % (Auto) [place] % (Auto) Lymph # [place] # Baso # Seg Neutrophils % Seg Neuts % (Manual) Lymphocytes % (Manual) Monocytes % (Manual) Nucleated RBC % Seg Neutrophils # Seg Neutrophils # Man Lymphocytes # (Manual) Monocytes # (Manual) Basophils # (Manual) PT INR D-Dimer ABG pH ABG pO2 ABG HCO3 ABG O2 Saturation ABG Base Excess ABG Hemoglobin Oxyhemoglobin Sodium Potassium Chloride Carbon Dioxide BUN 6 L Creatinine 0.3 L Glucose 107 H POC Glucose Lactic Acid Calcium 8.2 L Magnesium 1.50 L Iron TIBC Ferritin AST ALT Lactate Dehydrogenase Troponin T C-Reactive Protein Total Protein Albumin Prealbumin Cholesterol LDL Cholesterol Direct HDL Cholesterol Urine WBC (Auto) Vancomycin Trough Coronavirus (PCR) Crossmatch 08/15/19 08/16/19 08/16/19 12:12 00:05 05:00 WBC 13.3 H RBC 2.87 L Hgb 8.1 L Hct 24.9 L MCV MCH MCHC RDW 18.7 H Plt Count 962 H Lymph % (Auto) [place] % (Auto) Lymph # [place] # Baso # Seg Neutrophils % Seg Neuts % (Manual) Lymphocytes % (Manual) Monocytes % (Manual) Nucleated RBC % Seg Neutrophils # Seg Neutrophils # Man Lymphocytes # (Manual) Monocytes # (Manual) Basophils # (Manual) PT INR D-Dimer ABG pH ABG pO2 ABG HCO3 ABG O2 Saturation ABG Base Excess ABG Hemoglobin Oxyhemoglobin Sodium Potassium Chloride Carbon Dioxide BUN Creatinine Glucose POC Glucose 112 H 111 H Lactic Acid Calcium Magnesium Iron TIBC Ferritin AST ALT Lactate Dehydrogenase Troponin T C-Reactive Protein Total Protein Albumin Prealbumin Cholesterol LDL Cholesterol Direct HDL Cholesterol Urine WBC (Auto) Vancomycin Trough Coronavirus (PCR) Crossmatch 08/16/19 08/16/19 08/16/19 05:00 05:00 23:35 WBC RBC Hgb Hct MCV MCH MCHC RDW Plt Count Lymph % (Auto) [place] % (Auto) Lymph # [place] # Baso # Seg Neutrophils % Seg Neuts % (Manual) Lymphocytes % (Manual) Monocytes % (Manual) Nucleated RBC % Seg Neutrophils # Seg Neutrophils # Man Lymphocytes # (Manual) Monocytes # (Manual) Basophils # (Manual) PT INR D-Dimer ABG pH ABG pO2 ABG HCO3 ABG O2 Saturation ABG Base Excess ABG Hemoglobin Oxyhemoglobin Sodium 135 L Potassium Chloride Carbon Dioxide BUN 6 L Creatinine 0.3 L Glucose POC Glucose 108 H Lactic Acid Calcium 8.2 L Magnesium Iron TIBC Ferritin AST ALT Lactate Dehydrogenase Troponin T C-Reactive Protein 2.70 H Total Protein Albumin 2.1 L Prealbumin Cholesterol LDL Cholesterol Direct HDL Cholesterol Urine WBC (Auto) Vancomycin Trough Coronavirus (PCR) Crossmatch 08/17/19 05:15 WBC RBC Hgb Hct MCV MCH MCHC RDW Plt Count Lymph % (Auto) [place] % (Auto) Lymph # [place] # Baso # Seg Neutrophils % Seg Neuts % (Manual) Lymphocytes % (Manual) Monocytes % (Manual) Nucleated RBC % Seg Neutrophils # Seg Neutrophils # Man Lymphocytes # (Manual) Monocytes # (Manual) Basophils # (Manual) PT INR D-Dimer ABG pH ABG pO2 ABG HCO3 ABG O2 Saturation ABG Base Excess ABG Hemoglobin Oxyhemoglobin Sodium Potassium Chloride Carbon Dioxide BUN Creatinine Glucose POC Glucose 138 H Lactic Acid Calcium Magnesium Iron TIBC Ferritin AST ALT Lactate Dehydrogenase Troponin T C-Reactive Protein Total Protein Albumin Prealbumin Cholesterol LDL Cholesterol Direct HDL Cholesterol Urine WBC (Auto) Vancomycin Trough Coronavirus (PCR) Crossmatch Allied health notes reviewed: nursing
[2019-08-17] MEDS: INSULIN LISPRO 100 UNIT/ML SUB-Q SCH ×2 (12:00→17:18)
[2019-08-17] MEDS: ACETAMINOPHEN 325 MG/10.15 ML ORAL LIQD UNIT DOSE PO PRN (12:10)
[2019-08-17] MEDS: oxyCODONE /ACETAMINOPHEN 5-325MG TAB PO PRN ×2 (12:11→17:40)
[2019-08-17] MEDS: GLYCOPYRROLATE 1 MG TAB PO SCH ×3 (12:12→21:01)
--- NOTE | 2019-08-17 15:13 | Progress Note ---
Assessment and Plan Cultures: 07/03/2019 urine culture: No growth 07/03/2019 Tracheal aspirate: E.coli 07/29/2019 urine culture: neg 07/30/2019 blood culture: no growth tracheal asp + Pseudomonas 08/06/2019 blood culture: no growth 08/09/2019 Wound MDR Enterobacter 08/16/2019 blood culture: no growth to date A/P: 69-year-old male with CVA, hypertension, dementia, schizophrenia, alcohol use disorder was admitted to the emergency room after being brought in by EMS with progressive shortness of breath and unresponsiveness. He was noted to have agonal breathing and a faint pulse requiring CPR. It seems patient was on ho spice recently, prior to admission. #Shock, likely septic: shock resolved, remains off pressors. still intermittent fever, leukocytosis better ? bacterial pneumonia vs sacral decubitus infection. Very high procal=24 on 07/29 most recent 0.5 #Nonresolving pneumonia/Cavitary pneumonia: ? abscess. Sputum +Pseudomonas. CT shows RUL pneumonia with 2.4 cm cavity and LLL pneumonia with moderate left pleural effusion. No need for thoracentesis per Pulm #Penile/scrotal and buttocks wounds: ?cellulitis #Sacral decubitus: worsening on last exam ? necrotic. Evaluated for surgery, no indications for intervention. 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 bleeding overnight s/p surgical management bedside, 08/09/2019 Wound MDR Enterobacter likely a colonizer (superficial wound cx) #UTI: per documentation initial carroll placed on 07/03, exchanged on 07/31. #History of Severe COVID-19 disease and pneumonia: Markers improving. Completed Plaquenil. Completed Ceftriaxone for treatment E.coli in tracheal aspirate. repeat COVID 08/10/2019 positive. #Acute respiratory failure: on mechanical ventilation. #Transaminitis: Likely from COVID-19, shock #Multiple skin tears documented on admission #Anemia: from sacral wound bleeding Recs: F/u repeat blood cx today, persistent fever Check CBC with diff ? increased eosinophils ? drug fever Continue zosyn IV 4.5 g IV q 8 hour Off loading Anticipate to d/c on zosyn 4.5 gm IV q 8 hour for 3 weeks until 08/27/2019 to cover for lung abscess and sacral wound infection/osteomyelitis, I am holding off 6 weeks treatment for osteomyelitis as possibility of flaping/healing is unlikely. Dr Calzada covering weekend guarded prognosis Padmaja Garcia MD Infectious Diseases [facility] ([facility]) M [phone] O [phone] Subjective Date of service: 08/17/19 Principal diagnosis: Bilateral pneumonia, severe sepsis with septic shock, encephalopathy Interval history: Remains intubated, no fever, alert, intubated Objective - Exam Narrative Exam: General appearance: sedated on the vent Eyes: anicteric sclerae, moist conjunctivae; no lid-lag; PERRLA HENT: Atraumatic; oropharynx ETT with thick yellow secretion, NGT Lungs: madelin rhonchi per RT CV: RRR Abdomen: Soft, non-tender Extremities: marked madelin arm and leg edema Skin: No rash. Genital: penile/scrotal ulcer with scab covered w dressings Psych: no agitated Neuro: sedated Carroll - Constitutional Vitals: Vital Signs Temp Pulse Resp BP Pulse Ox 100.5 F H 126 H 19 122/73 99 08/17/19 12:00 08/17/19 13:00 08/17/19 13:00 08/17/19 13:00 08/17/19 13:00 Temperature -Last 24 Hours Temperature 100.5 F Temperature 98.6 F Temperature 99.6 F Temperature 99.4 F Temperature 99.1 F Temperature 98.5 F - Labs CBC & Chem 7: 08/16/19 05:00 08/16/19 05:00 Labs: Abnormal lab results 08/16/19 08/17/19 Range/Units 23:35 05:15 POC Glucose 108 H 138 H (70-105)
[2019-08-17 20:39] LABS: ABG Base Excess 2.6 mmol/L (-2.0-3.0); ABG HCO3 27.8 mmol/L (20.0-26.0); ABG Methemoglobin 0.5 % (0.0-1.5); ABG Oxygen Saturation 96.9 % (95.0-99.0); ABG PCO2 45.3 mm Hg; ABG PH 7.405 pH Units (7.350-7.450); ABG PO2 84.2 mm Hg (80.0-90.0)
[2019-08-18] MEDS: PIPERACIL/TAZOBACTA 4.5/NS 100 4.5 GM/100 ML VIAL IV SCH ×5 (00:17→18:51)
[2019-08-18] MEDS: INSULIN LISPRO 100 UNIT/ML SUB-Q SCH ×5 (06:00→23:44)
[2019-08-18 06:57] LABS: Hematocrit 28.5 % (35.5-45.6); Hemoglobin 9.3 gm/dl (11.8-15.2); Mean Corpuscular HGB Conc 32 % (32-34); Mean Corpuscular Volume 87 fl (84-94); Platelet Count 923 K/mm3 (140-440); Red Cell Distribution Width 18.9 % (13.2-15.2)
[2019-08-18 07:52] LABS: BUN/Creatinine Ratio 23; Blood Urea Nitrogen 9 mg/dL (9-20); Hemolysis Index 0
[2019-08-18] MEDS: levETIRAcetam 500 MG/5 ML ORAL LIQD FEEDTUBE SCH ×2 (09:01→21:24)
[2019-08-18] MEDS: FOLIC ACID 1 MG TAB PO SCH (09:02)
[2019-08-18] MEDS: FAMOTIDINE 20 MG TAB PO SCH ×2 (09:02→21:22)
[2019-08-18] MEDS: ASPIRIN 81 MG TAB CHEW PO SCH (09:02)
[2019-08-18] MEDS: GLYCOPYRROLATE 1 MG TAB PO SCH ×3 (09:02→21:24)
[2019-08-18] MEDS: ENOXAPARIN 40 MG/0.4 ML INJ SUB-Q SCH (09:03)
[2019-08-18] MEDS: SODIUM HYPOCHLORITE, DAKIN'S 1/2 STRENGTH (0.25%) 473 ML TOPICAL SOLN TP SCH ×2 (09:05→22:00)
[2019-08-18] MEDS: oxyCODONE /ACETAMINOPHEN 5-325MG TAB PO PRN ×2 (10:57→22:52)
[2019-08-18] MEDS: SCOPOLAMINE TRANSDERMAL PATCH 72 HR TD SCH (10:58)
[2019-08-18] MEDS: fentaNYL 25 MCG/HR PATCH 72HR TD SCH (10:59)
--- NOTE | 2019-08-18 11:51 | Progress Note ---
Assessment and Plan Assessment and plan: 69-year-old male with PMH of CVA with RHP, HTN, DM2, SCZ, Dementia, Alcohol use D/o, Seizure D/O, presents to the emergency department via EMS from home with progressive SOB and impending respiratory failure with an unresponsive episode. Apparently the patient was witnessed becoming unresponsive by family members. Reportedly, pt had just gotten a high dose of Hyoscamine When EMS got there, the patient was agonal breathing and had a faint pulse. No CPR was indicated per EMS. PT was intubated and received some IV fluid en route to the hospital. THe pt was under [facility] and reportedly the patient is a DNR according to the family but they were unable to provide the appropriate paperwork and to explain why the pt was discharged from hospice. The patient is bed bound and has LE atrophy and contractures. He also has history of cervical spine fracture, allegedly a fracture of some level of his back. A reliable HPI cannot be obtained from the pt due to mechanical ventilation. In the ED, pt was found to have bilateral PNA on CXR and WBC was 30K. --COVid positive pneumonia with severe sepsis ?abscess No need for drianage per ID/pULM Received Plaquenil and cefepime, monitor off antibiotics ID following --Recurrent fever --Septic shock: Improving hemodynamics was treated with Pressors Persistent hypotension, -- Acute respiratory Failure with Hypoxia Due to bilateral PNA with COVID 19 infection. On ventilatory support, unable to wean Pulmonary critical following --COPD with exacerbation Likely due to COVID-19 pneumonia Continue scheduled nebs --Anemia, Microcytic persistent s/p total 3 unit of PRBC, today Hb today 9.1 --Pressure Ulcers: concerning for osteomylitis POA/ Scrotal ulcers buttocks, right lateral foot area wound and supportive care --Hyponatremia, resolved --DM type 2: Accu-Chek SCC tube feeding, insulin as needed --h/o HTN Essential, now hypotensive On Levophed --Seizure D/o/CVA/immobility/BIpolar D/o/SCZ Seizure precautions, antiepileptic medications --Severe PCM, TF supportive care, dietary following patient is DNR- Called and verified information Very poor prognosis, Recommend hospice 07/04: COVID +ve, start on plaquinil, called no answer 07/05: transfuse one unit PRBC, Hb dropped to ~6, called and updated 07/06; H&H stable, serum chemistry improved. On mechanical ventilation with high inflammatory markers. Continue Plaquenil and empiric antibiotics. ID following, prognosis remains guarded and extremely poor. 07/07: On mechanical ventilation with high inflammatory markers. Continue Plaquenil and empiric antibiotics. ID following, prognosis remains guarded and extremely poor. 07/08: Called today and verified the CODE STATUS. Patient remains DNR. He is still intubated, with poor prognosis. Continue to follow inflammatory markers. 07/09 wean off from vent as tolerated, completed empiric antibiotic and Plaquenil 07/10 wean off from vent as tolerated. poor prognosis 07/11 hb 6.7 today, transfuse one PRBC. wean off from vent as tolerated. poor prognosis 07/12 remains critically on vent. Hb 6.9 07/13 Hb dropped to 6.6, transfuse 1 unit of PRBC, remains on vent critically i ll Hypotensive, fluid bolus, if no improvement start Levophed 07/14; remains anemic with hemoglobin of 6.8, received total 3 units of PRBC Additional 1 unit of PRBC today, stool for occult blood to rule out GI causes Started back on Levophed due to hypotension 07/15; patient remains critically ill, hypotensive on Levophed 07/16: Today remains intubated on vent, persistent hypotension on Levophed 07/17; clinically no change, pressor dependent[on Levophed] DNR status 07/18: Patient remains hypotensive requiring Levophed, intubated on vent Unable to wean, critically ill. DNR 07/20/2019 Patient remains hypotensive requiring Levophed, intubated on vent. Patient currently with AC mode ventilation, rate 20, tidal volume 500, FiO2 40% and PEEP 6. Patient is a poor prognosis and apparently was on hospice recently. 07/21/2019. Patient with PEG tube that was clogged yesterday. surgery evaluated the patient and noted Very long PEG tubing with thick material inside. The entire tube was stripped and a large amount of formed tube feed was expressed. The tube was then flushed with sprite and flushed easily. Tube clamped. Patient currently with AC mode ventilation, rate 20, tidal volume 500, FiO2 40% and PEEP 6. Patient is a poor prognosis and apparently was on hospice recently. 07/22/2019. Patient currently with AC mode ventilation, rate 20, tidal volume 500, FiO2 30% and PEEP 6. Patient on sedation with fentanyl drip. Continue Levophed to maintain MAP greater than 65. Patient is a poor prognosis and apparently was on hospice recently. 07/23/2019. Patient currently with AC mode ventilation, rate 20, tidal volume 500, FiO2 30% and PEEP 6. Patient on sedation with fentanyl drip. Continue Levophed to maintain MAP greater than 65. Patient is a poor prognosis and apparently was on hospice recently. 07/24/2019 Patient with Covid-19 infection with pneumonia, acute respiratory failure, intubated on ventilator. No more fever. Continue current management. 07/25/2019 Patient with Covid-19 infection with pneumonia, acute respiratory failure, intubated on ventilator. fever is now resolved. Sedated with propofol 07/26/2019 Patient with covid-19 infection. Still intubated, on vent. 07/27/2019 Patient with Covid-19. he is still critically ill. patient has DNR order. 07/28/2019 Patient with Covid-19 infection. Will repeat labs today. Surgeon consulted for tracheostomy. 07/29/2019 Patient with Covid-19. hypokalemia yesterday, replaced. Will recheck labs in am. 07/30/2019 patient with Covid-19 infection with acute respiratory failure. He is intubated on ventilator. has hypokalemia. replace and recheck BMP in am. patient has UTI, started on Cefepime. 07/31/2019. patient with Covid-19 infection with acute respiratory failure. He is intubated on ventilator. Repeat chest x-ray reveals decreased infiltrates. urology consultation and wound care consult per ID. Follow-up urine and blood culture. Tracheostomy per surgery. 08/01/2019. patient with Covid-19 infection with acute respiratory failure. He is intubated on ventilator. Patient currently with PSV trials. Pressure support 18/PEEP 6. FiO2 30%. Tracheostomy to be placed per surgery wound COVID testing negative. 08/02/2019. Patient with COVID-19 infection and acute respiratory failure on mechanical ventilation. Continue with PSVT trials with pressure support increased to 20. Follow-up serial chest x-ray. Continue Fentanyl infusion and wean sedation as tolerated. Continue daily spontaneous breathing trials. 08/03/2019. Patient with COVID-19 infection and acute respiratory failure on mechanical ventilation. Continue with PSV trials with pressure support increased to 20. Follow-up serial chest x-ray. Continue Fentanyl infusion and wean sedation as tolerated. Continue daily spontaneous breathing trials. 08/04/2019. Patient with COVID-19 infection and acute respiratory failure on mechanical ventilation. Continue with PSV trials 14/6, FiO2 30%. Continue Fentanyl infusion and wean sedation as tolerated. Continue daily spontaneous breathing trials. Tracheostomy placement to be scheduled when COVID testing is negative per surgery. Monitor off antibiotics per ID recommendations 08/05/2019. Patient with COVID-19 infection and acute respiratory failure on mechanical ventilation. Patient currently on AC mode, rate 14, tidal volume 500, FiO2 30% and PEEP of 6. Continue PSV trials as tolerated. Tracheostomy placement to be scheduled when COVID testing is negative per surgery. Monitor off antibiotics per ID recommendations. 08/06/2019. Patient with COVID-19 infection and acute respiratory failure on mechanical ventilation. Patient currently on AC mode, rate 14, tidal volume 500, FiO2 30% and PEEP of 6. Continue PSV trials as tolerated. Tracheostomy placement to be scheduled when COVID testing is negative per surgery. ID restarted antibiotics with cefepime 2 g IV every 8 hours to cover for presumed Pseudomonas pneumonia. Follow-up chest x-ray and blood cultures. Repeat COVID testing 07/28 and positive. Repeat test tomorrow. 08/07/19 Patient with Covid-19, acute respiratory failure. He is still intubated on mechanical ventilator. For tracheostomy when Covid-19 test negative. Still h aving fever. Leukocytosis worse today, WBC 30.3. For CT Chest, Abdomen. 08/08/19 patient with Covid-19, acute respiratory failure. He is still critically ill, intubated. He is for tracheostomy after Covid-19 test negative. Fever improving. Temp 99.[address] Chest and Abdomen done yesterday pending. 08/09/2019 patient with Covid-19 infection, acute resp failure. Still intubated on ventilator. Fever of 100.3 this morning. I discussed with his Nurse 08/10/2019 Patient with Covid-19 infection. acute respirator failure. patient still in critical condition, intubated. 08/11/2019 Patient with Covid-19 infection, acute resp failure. He is still intubated on vent. 08/12/2019 Patient with Covid-19 infection, acute resp failure. He is still intubated on vent. Discussed with yesterday and gave update. Covid-19 test done 08/09 still positive. 08/13/2019 Patient with Covid-19 infection, acute resp failure. He is still intubated on vent. Discussed with 08/10 and gave update. Covid-19 test done 08/09 still positive. Fever of 101.8 last night 08/14/19: Remains on full ventilatory support. No clinical change 08/14: Remains in full ventilatory support. Replace electrolytes, awaiting N egative covid testing to be able to do Trach and Peg. Per ID Anticipate to d/c on zosyn 4.5 gm IV q 8 hour for 3 weeks until 08/27/2019 to cover for lung abscess and sacral wound infection/osteomyelitis, I am holding off 6 weeks treatment for osteomyelitis as possibility of flap/healing is unlikely. 08/15: No clinical change. Remains on full ventilatory support. Discussed with consulting physicians. We will continue to wean as tolerated. Awaiting negative COVID test prior to trach and PEG. Continue intermittent labs monitor hemoglobin. Platelets continues to rise. This could be a reactive reaction. 08/16: Awaiting negative COVID test for placement of trach and PEG. In the meantime we will continue aggressive attempt to wean patient. Cultures have been reviewed and discussed with infectious disease who is managing treatment at this time. Continue wound care dressing. Multiple skin tears were noted on admission will continue to follow. Patient receiving repeat chest x-ray reviewed today shows stable bilateral pulmonary disease and no acuity noted on KUB due to persistent fever ID reviewing increases acidophil wondering if there is drug fever will follow closely. Prognosis remains guarded. 08/17: Continue current management, monitor WBC, mildly elevated. The high probability of a clinically significant, sudden or life threatening deterioration of the [respiratory, CVS, [employer]NEY[employer]] system(s) required my full and direct attention, intervention and personal management. The aggregate critical care time was [35] minutes. This time is in addition to time spent performing reported procedures but includes the following: [x] Data Review and interpretation [x] Patient assessment and monitoring of vital signs [x] Documentation [x] Medication orders and management History Interval history: Patient with Covid-19 infection Still intubated No clinical change Discussed with nursing staff patient awakens on verbal stimuli but not following commands, still. Hospitalist Physical - Physical exam Narrative exam: GEN: Not in acute distress, intubated, awakens to verbal stimuli but not following commands HEENT: Normocephalic, atraumatic, Neck: Supple, No JVD Lungs: Bilateral crackles, Heart; S1 and S2 reg, no murmurs, rubs or gallop Abd:soft, non tender, non distended, normal bowel sounds,PEG tube Ext: No edema, no clubbing, no cyanosis, Neuro: Intubated, on ventilator Skin: See full documentation by wound care nurse. Pain no ulcer with dressing noted. - Constitutional Vitals: Temp Pulse Resp BP Pulse Ox 98.0 F 126 H 33 H 134/75 96 08/18/19 08:00 08/18/19 10:20 08/18/19 10:20 08/18/19 10:20 08/18/19 10:20 General appearance: Present: other (Orally intubated on vent) HEART Score - HEART Score Troponin: Troponin T 0.013 ng/mL (0.00-0.029) 07/04/19 07:05 Results - Labs CBC & Chem 7: 08/18/19 06:00 08/18/19 06:00 Labs: Laboratory Last Values WBC 19.7 K/mm3 (4.5-11.0) H 08/18/19 06:00 RBC 3.30 M/mm3 (3.65-5.03) L 08/18/19 06:00 Hgb 9.3 gm/dl (11.8-15.2) L 08/18/19 06:00 Hct 28.5 % (35.5-45.6) L 08/18/19 06:00 MCV 87 fl (84-94) 08/18/19 06:00 MCH 28 pg (28-32) 08/18/19 06:00 MCHC 32 % (32-34) 08/18/19 06:00 RDW 18.9 % (13.2-15.2) H 08/18/19 06:00 Plt Count 923 K/mm3 (140-440) H 08/18/19 06:00 Lymph % (Auto) 4.9 % (13.4-35.0) L 07/19/19 08:45 [place] % (Auto) 12.2 % (0.0-7.3) H 07/22/19 05:38 Eos % (Auto) 1.0 % (0.0-4.3) 07/19/19 08:45 Baso % (Auto) 0.5 % (0.0-1.8) 07/19/19 08:45 Lymph # 0.8 K/mm3 (1.2-5.4) L 07/19/19 08:45 [place] # 1.5 K/mm3 (0.0-0.8) H 07/22/19 05:38 Eos # 0.2 K/mm3 (0.0-0.4) 07/19/19 08:45 Baso # 0.1 K/mm3 (0.0-0.1) 07/19/19 08:45 Add Manual Diff Complete 08/08/19 04:41 Total Counted 100 08/08/19 04:41 Seg Neutrophils % 72.8 % (40.0-70.0) H 07/22/19 05:38 Seg Neuts % (Manual) 90.0 % (40.0-70.0) H 08/08/19 04:41 Band Neutrophils % 0 % 08/08/19 04:41 Lymphocytes % (Manual) 3.0 % (13.4-35.0) L 08/08/19 04:41 Reactive Lymphs % (Man) 0 % 08/08/19 04:41 Monocytes % (Manual) 6.0 % (0.0-7.3) 08/08/19 04:41 Eosinophils % (Manual) 1.0 % (0.0-4.3) 08/08/19 04:41 Basophils % (Manual) 0 % (0.0-1.8) 08/08/19 04:41 Metamyelocytes % 0 % 08/08/19 04:41 Myelocytes % 0 % 08/08/19 04:41 Promyelocytes % 0 % 08/08/19 04:41 Blast Cells % 0 % 08/08/19 04:41 Nucleated RBC % Not Reportable 08/08/19 04:41 Seg Neutrophils # 9.2 K/mm3 (1.8-7.7) H 07/22/19 05:38 Seg Neutrophils # Man 19.9 K/mm3 (1.8-7.7) H 08/08/19 04:41 Band Neutrophils # 0.0 K/mm3 08/08/19 04:41 Lymphocytes # (Manual) 0.7 K/mm3 (1.2-5.4) L 08/08/19 04:41 Abs React Lymphs (Man) 0.0 K/mm3 08/08/19 04:41 Monocytes # (Manual) 1.3 K/mm3 (0.0-0.8) H 08/08/19 04:41 Eosinophils # (Manual) 0.2 K/mm3 (0.0-0.4) 08/08/19 04:41 Basophils # (Manual) 0.0 K/mm3 (0.0-0.1) 08/08/19 04:41 Metamyelocytes # 0.0 K/mm3 08/08/19 04:41 Myelocytes # 0.0 K/mm3 08/08/19 04:41 Promyelocytes # 0.0 K/mm3 08/08/19 04:41 Blast Cells # 0.0 K/mm3 08/08/19 04:41 WBC Morphology Not Reportable 08/08/19 04:41 Hypersegmented Neuts Not Reportable 08/08/19 04:41 Hyposegmented Neuts Not Reportable 08/08/19 04:41 Hypogranular Neuts Not Reportable 08/08/19 04:41 Smudge Cells Not Reportable 08/08/19 04:41 Toxic Granulation Not Reportable 08/08/19 04:41 Toxic Vacuolation Not Reportable 08/08/19 04:41 Dohle Bodies Not Reportable 08/08/19 04:41 Pelger-Huet Anomaly Not Reportable 08/08/19 04:41 Mendy Rods Not Reportable 08/08/19 04:41 Platelet Estimate Consistent w auto 08/08/19 04:41 Clumped Platelets Not Reportable 08/08/19 04:41 Plt Clumps, EDTA Not Reportable 08/08/19 04:41 Large Platelets Not Reportable 08/08/19 04:41 Giant Platelets Not Reportable 08/08/19 04:41 Platelet Satelliting Not Reportable 08/08/19 04:41 Plt Morphology Comment Not Reportable 08/08/19 04:41 RBC Morphology Not Reportable 08/08/19 04:41 Dimorphic RBCs Not Reportable 08/08/19 04:41 Polychromasia Not Reportable 08/08/19 04:41 Hypochromasia Few 08/08/19 04:41 Poikilocytosis Not Reportable 08/08/19 04:41 Anisocytosis Rare 08/08/19 04:41 Microcytosis Rare 08/08/19 04:41 Macrocytosis Not Reportable 08/08/19 04:41 Spherocytes Not Reportable 08/08/19 04:41 Pappenheimer Bodies Not Reportable 08/08/19 04:41 Sickle Cells Not Reportable 08/08/19 04:41 Target Cells Not Reportable 08/08/19 04:41 Tear Drop Cells Not Reportable 08/08/19 04:41 Ovalocytes Rare 08/08/19 04:41 Stomatocytes Few 08/01/19 04:57 Helmet Cells Not Reportable 08/08/19 04:41 [place] Bodies Not Reportable 08/08/19 04:41 [place] Rings Not Reportable 08/08/19 04:41 Joanne Cells Not Reportable 08/08/19 04:41 Bite Cells Not Reportable 08/08/19 04:41 Crenated Cell Not Reportable 08/08/19 04:41 Elliptocytes Not Reportable 08/08/19 04:41 Acanthocytes (Spur) Not Reportable 08/08/19 04:41 Rouleaux Not Reportable 08/08/19 04:41 Hemoglobin C Crystals Not Reportable 08/08/19 04:41 Schistocytes Rare 08/08/19 04:41 Malaria parasites Not Reportable 08/08/19 04:41 Jeevan Bodies Not Reportable 08/08/19 04:41 Hem Pathologist Commnt No 08/08/19 04:41 PT 16.0 Sec. (12.2-14.9) H 07/03/19 22:20 INR 1.26 (0.87-1.13) H 07/03/19 22:20 D-Dimer 1808.06 ng/mlDDU (0-234) H 08/07/19 10:24 ABG pH 7.405 pH Units (7.350-7.450) 08/17/19 20:20 ABG pCO2 45.3 mm Hg 08/17/19 20:20 ABG pO2 84.2 mm Hg (80.0-90.0) 08/17/19 20:20 ABG HCO3 27.8 mmol/L (20.0-26.0) H 08/17/19 20:20 ABG O2 Saturation 96.9 % (95.0-99.0) 08/17/19 20: ABG O2 Content 15.2 (0.0-44) 08/17/19 20:20 ABG Base Excess 2.6 mmol/L (-2.0-3.0) 08/17/19 20:20 ABG Hemoglobin 11.4 gm/dl (14.0-18.0) L 08/17/19 20:20 ABG Carboxyhemoglobin 1.9 % (0.0-5.0) 08/17/19 20: ABG Methemoglobin 0.5 % (0.0-1.5) 08/17/19 20:20 Oxyhemoglobin 94.6 % (95.0-99.0) L 08/17/19 20:20 FiO2 28 % 08/17/19 20:20 Sodium 136 mmol/L (137-145) L 08/18/19 06:00 Potassium 4.4 mmol/L (3.6-5.0) 08/18/19 06:00 Chloride 99.0 mmol/L (98-107) 08/18/19 06:00 Carbon Dioxide 25 mmol/L (22-30) 08/18/19 06:00 Anion Gap 16 mmol/L 08/18/19 06:00 BUN 9 mg/dL (9-20) 08/18/19 06:00 Creatinine 0.4 mg/dL (0.8-1.5) L 08/18/19 06:00 Estimated GFR > 60 ml/min 08/18/19 06:00 BUN/Creatinine Ratio 23 % 08/18/19 06:00 Glucose 71 mg/dL (75-100) L 08/18/19 06:00 POC Glucose 103 (70-105) 08/18/19 05:28 Osmolality 268 Mosm/kg 07/05/19 04:00 Lactic Acid 3.30 mmol/L (0.7-2.0) H* 07/04/19 07:05 Uric Acid 7.2 mg/dL (3.5-7.6) 07/05/19 04:00 Calcium 9.0 mg/dL (8.4-10.2) 08/18/19 06:00 Phosphorus 3.60 mg/dL (2.5-4.5) 07/05/19 04:00 Magnesium 1.50 mg/dL (1.7-2.3) L 08/15/19 06:10 Iron 9 ug/dL (49-181) L 07/04/19 07:05 TIBC 97 mcg/dL (250-450) L 07/04/19 07:05 Ferritin 360.4 ng/mL (13.0-400.0) 08/07/19 10:24 Total Bilirubin 0.20 mg/dL (0.1-1.2) 08/16/19 05:00 AST 20 units/L (5-40) 08/16/19 05:00 ALT 8 units/L (7-56) 08/16/19 05:00 Alkaline Phosphatase 77 units/L (35-129) 08/16/19 05:00 Ammonia 35.0 umol/L (25-60) 07/03/19 23:58 Lactate Dehydrogenase 144 units/L (91-180) 08/07/19 10:24 Troponin T 0.013 ng/mL (0.00-0.029) 07/04/19 07:05 C-Reactive Protein 2.70 mg/dL (0.00-1.30) H 08/16/19 05:00 Total Protein 7.0 g/dL (6.3-8.2) 08/16/19 05:00 Albumin 2.1 g/dL (3.9-5) L 08/16/19 05:00 Albumin/Globulin Ratio 0.4 % 08/16/19 05:00 Prealbumin 0.037 g/L (0.200-0.400) L 07/31/19 04:42 Triglycerides 33 mg/dL (2-149) 07/03/19 19:57 Cholesterol 47 mg/dL (50-199) L 07/03/19 19:57 LDL Cholesterol Direct 25 mg/dL (50-130) L 07/03/19 19:57 HDL Cholesterol 20 mg/dL (40-59) L 07/03/19 19:57 Cholesterol/HDL Ratio 2.35 % 07/03/19 19:57 Procalcitonin < 0.05 ng/mL (<0.15) 08/16/19 14:35 TSH 2.170 mlU/mL (0.270-4.200) 07/03/19 22:20 Total Cortisol 28.0 mcg/dL () 07/05/19 10:11 Urine Color Yellow (Yellow) 07/29/19 11:57 Urine Turbidity Clear (Clear) 07/29/19 11:57 Urine pH 7.0 (5.0-7.0) 07/29/19 11:57 Ur Specific [place] 1.012 (1.003-1.030) 07/29/19 11:57 Urine Protein <15 mg/dl mg/dL (Negative) 07/29/19 11:57 Urine Glucose (UA) Neg mg/dL (Negative) 07/29/19 11:57 Urine Ketones Neg mg/dL (Negative) 07/29/19 11:57 Urine Blood Sm (Negative) 07/29/19 11:57 Urine Nitrite Neg (Negative) 07/29/19 11:57 Urine Bilirubin Neg (Negative) 07/29/19 11:57 Urine Urobilinogen 4.0 mg/dL (<2.0) 07/29/19 11:57 Ur Leukocyte Esterase Mod (Negative) 07/29/19 11:57 Urine WBC (Auto) 63.0 /HPF (0.0-6.0) H 07/29/19 11:57 Urine RBC (Auto) 14.0 /HPF (0.0-6.0) 07/29/19 11:57 U Epithel Cells (Auto) < 1.0 /HPF (0-13.0) 07/29/19 11:57 Urine Bacteria (Auto) 1+ /HPF (Negative) 07/29/19 11:57 Urine WBC Clumps Few /HPF 07/03/19 21:13 Urine Mucus Few /HPF 07/03/19 21:13 Urine Osmolality 293 Mosm/kg 07/05/19 08:15 Vancomycin Trough 23.2 ug/mL (5.0-20.0) H 07/05/19 17:54 Urine Opiates Screen Presumptive negative 07/03/19 21:13 Urine Methadone Screen Presumptive negative 07/03/19 21:13 Ur Barbiturates Screen Presumptive negative 07/03/19 21:13 Ur Phencyclidine Scrn Presumptive negative 07/03/19 21:13 Ur Amphetamines Screen Presumptive negative 07/03/19 21:13 U Benzodiazepines Scrn Presumptive negative 07/03/19 21:13 Urine Cocaine Screen Presumptive negative 07/03/19 21:13 U Marijuana (THC) Screen Presumptive negative 07/03/19 21:13 Drugs of Abuse Note Disclamer 07/03/19 21:13 Plasma/Serum Alcohol < 0.01 % (0-0.07) 07/03/19 23:58 Coronavirus (PCR) Positive (Negative) A 08/10/19 Unknown Hepatitis A IgM Ab Non-reactive (NonReactive) 08/07/19 10:24 Hep Bs Antigen Non-reactive (Negative) 08/07/19 10:24 Hep B Core IgM Ab Non-reactive (NonReactive) 08/07/19 10:24 Hepatitis C Antibody Non-reactive (NonReactive) 08/07/19 10:24 Blood Type B POSITIVE 08/09/19 17:59 Antibody Screen Negative 08/09/19 17:59 Crossmatch See Detail 08/09/19 17:59 Microbiology: Microbiology 08/16/19 14:35 Peripheral/Venous Blood Culture - Preliminary NO GROWTH AFTER 24 HOURS 08/16/19 14:35 Peripheral/Venous Blood Culture - Preliminary NO GROWTH AFTER 24 HOURS Wright/IV: Voiding Method Indwelling Catheter IV Catheter Type [Left Triple Lumen Cath Internal Jugular] IV Catheter Type [Left INT / Saline Lock Antecubital] IV Catheter Type [Left Forearm Peripheral IV ] IV Catheter Type [Left Upper Mid-line arm] IV Catheter Type [Right INT / Saline Lock Forearm] IV Catheter Type [Right Hand] INT / Saline Lock IV Catheter Type [Right CVL Femoral] IV Catheter Type [Left INT / Saline Lock External Jugular] Active Medications - Current Medications Current Medications: Generic Name Dose Route Start Last Admin Trade Name Freq PRN Reason Stop Dose Admin Acetaminophen 650 mg 07/04/19 04:24 08/05/19 17:40 Tylenol [place] 650 mg Q6H PRN Administration Pain MILD(1-3)/Fever >100.5/MURO Acetaminophen 650 mg 07/10/19 04:00 08/17/19 12:10 Tylenol PO 650 mg Q6HR PRN Administration Pain, Mild (1-3) FEVER Lipase/Protease/Amylase 1 each 07/04/19 10:04 08/11/19 06:[address] 10,500 Unit FEEDTUBE 1 each PRN PRN Administration For Clogged Feeding Tube Aspirin 81 mg 07/05/19 10:00 08/18/19 09:02 Baby Aspirin PO 81 mg QDAY TAMMIE Administration Dextrose 50 ml 07/04/19 06:54 D50w (25gm) Syringe IV Q30MIN PRN Hypoglycemia Protocol Docusate Sodium 100 mg 08/14/19 14:00 Colace PO BID PRN CONSTIPATION Enoxaparin Sodium 40 mg 07/24/19 10:00 08/18/19 09:03 Enoxaparin SUB-Q 40 mg QDAY@1000 TAMMIE Administration Famotidine 20 mg 07/23/19 22:00 08/18/19 09:02 Pepcid PO 20 mg BID TAMMIE Administration Fentanyl 50 mcg 07/21/19 15:18 08/09/19 17:44 Sublimaze IV 50 mcg Q10MIN PRN Administration ANALGESIA Fentanyl 25 mcg 08/03/19 11:00 08/18/19 10:59 Duragesic TD 25 mcg Q3D TAMMIE Administration Folic Acid 1 mg 07/05/19 10:00 08/18/19 09:02 Folvite PO 1 mg QDAY TAMMIE Administration Glycopyrrolate 1 mg 08/16/19 14:00 08/18/19 09:02 Robinul PO 1 mg TID TAMMIE Administration Hydrophilic Ointment 1 applic 07/03/19 19:56 07/05/19 17:42 Vaseline Lip Therapy TP 1 applic Q2HR PRN Administration Dry Lips Norepinephrine 4 mg in 250 mls @ 7.5 mls/hr 07/03/19 23:00 07/20/19 01:00 Levophed Drip 4 Mg/Ns 250 Ml IV Infused TITR TAMMIE Titration Protocol 2 MCG/MIN Piperacillin Sod/Tazobactam Sod 4.5 gm in 100 mls @ 200 mls/hr 08/06/19 12:00 08/18/19 08:39 Zosyn/Ns 4.5gm/100ml IV 08/27/19 11:59 200 mls/hr Q6HR TAMMIE Administration Protocol Insulin Human Lispro 0 unit 07/07/19 12:00 08/17/19 17:18 Humalog SUB-Q Not Given Q6HR [facility] Protocol Levetiracetam 750 mg 07/06/19 11:00 08/18/19 09:01 Keppra FEEDTUBE 750 mg Q12HR TAMMIE Administration Metoprolol Tartrate 5 mg 07/12/19 15:08 08/11/19 14:47 Metoprolol IV 5 mg Q6HR PRN Administration Tachyarrhythmias Multi-Ingred Cream/Lotion/Oil/Oint 1 applic 07/03/19 19:56 07/05/19 13:19 Artificial Tears Ophth Oint OU 1 applic Q4HR PRN Administration Dry Eye(s) Naloxone HCl 0.1 mg 07/04/19 04:24 Naloxone IV Q2MIN PRN Res Rate </= 8 or 02 SAT < 92% Oxycodone/Acetaminophen 1 tab 07/19/19 14:17 08/18/19 10:57 Percocet 5/325 PO 1 tab Q4H PRN Administration Pain, Moderate (4-6) Scopolamine 1 each 07/10/19 11:00 08/18/19 10:58 Transderm-Scop TD 1 each Q3D TAMMIE Administration Simple Syrup 15 ml 07/04/19 10:04 07/10/19 21:56 Simple Syrup FEEDTUBE 15 ml PRN PRN Administration Hypoglycemia Simple Syrup 30 ml 07/04/19 10:04 Simple Syrup FEEDTUBE PRN PRN Hypoglycemia Sodium Bicarbonate 325 mg 07/04/19 10:04 07/20/19 10:20 Sodium Bicarbonate FEEDTUBE 325 mg PRN PRN Administration For Clogged Feeding Tube Sodium Chloride 10 ml 07/04/19 10:00 08/18/19 09:03 Sodium Chloride Flush Syringe 10 Ml IV 10 ml BID TAMMIE Administration Sodium Chloride 10 ml 07/04/19 04:24 Sodium Chloride Flush Syringe 10 Ml IV PRN PRN LINE FLUSH Sodium Hypochlorite 1 applic 07/10/19 14:00 08/18/19 09:05 Dakin's Half Strength TP 1 appful BID TAMMIE Administration Nutrition/Malnutrition Assess - Dietary Evaluation Nutrition/Malnutrition Findings: Nutrition Notes Start: 07/04/19 09:17 Freq: Status: Active Protocol: Document 08/15/19 08:14 LP (Rec: 08/15/19 08:16 LP [id number]) Nutrition Notes Initial or Follow up Reassessment Current Diagnosis Acute Kidney Injury,COPD, Decubitus(Pressure Ulcer), Diabetes,Hypertension Other Pertinent Diagnosis COVID-19 (+), pneu, seizures, schizophrenia, Buttock and R foot PU, Current Diet Osmolite 1.5 at 55ml/hr Labs/Tests Reviewed Pertinent Medications Reviewed Height 5 ft 11 in Weight 78.7 kg [place] Body Weight (kg) 78.18 BMI 24.2 Weight Status Overweight Subjective/Other Information Pt continues tolerating TF at goal rate. Percent of energy/protein needs met: 97%/75% Burn Absent Trauma Absent Current % PO Negligible Minimum of two criteria No physical signs of malnutrition #2 Nutrition Diagnosis Increased nutrient needs ( specify in comment below) Diagnosis Progress(for reassessment Continues documentation) #1 Nutrition Diagnosis Inadequate oral intake Diagnosis Progress(for reassessment Continues documentation) Is patient on ventilator? Yes Is Patient Ambulatory and/or Out of Bed No REE-([facility]-confined to bed) [id number] Calculation Used for Recommendations [facility] Additional Notes Protein: 110-184 (1.2-2g/kg) Fluid: 1 ml/kcal or per MD Nutrition Intervention Change Diet Order: Continue TF Nutrition Support: Osmolite 1.5 at 55ml/hr Flush 150ml q4h Kcal 1,980 Protein (gm) 83 Fluid (mL) 1,006 Goal #1 TF tolerance Goal #2 TF to meet at least 75% of energy and protein needs Anticipated Discharge Needs: unable to determine at this time Follow-Up By: 08/22/19 Additional Comments Follow for stable TF
[2019-08-18] MEDS: ACETAMINOPHEN 325 MG/10.15 ML ORAL LIQD UNIT DOSE PO PRN ×2 (12:01→21:23)
[2019-08-18] MEDS ORDERED: SODIUM CHLORIDE 0.9% 1000 ML 1,000 ML IV ONE (12:40)
--- NOTE | 2019-08-18 13:25 | XRay Report ---
CHEST 1 VIEW INDICATION / CLINICAL INFORMATION: Pneumonia , (Temp 101.8). COMPARISON: None available. FINDINGS: SUPPORT DEVICES: Endotracheal tube, left IJ catheter and nasogastric tubes are in satisfactory positi on. HEART / MEDIASTINUM: No significant abnormality. LUNGS / PLEURA: Right upper lobe opacity is not changed significantly. There is improving airspace disease in the left lower lung. No pneumothorax. ADDITIONAL FINDINGS: No significant additional findings. IMPRESSION: 1. Persistent but slightly improved bilateral pulmonary disease. Signer Name: Vincent Cardona MD Signed: 08/18/2019 1:20 PM Workstation Name: [id number]
--- NOTE | 2019-08-18 15:09 | Progress Note ---
Assessment and Plan Acute hypoxemic respiratory failure on MVS Severe sepsis with Shock. Bilateral Pneumonia. PUI coronavirus-19 infection. Acute possibly on chronic encephalopathy. Oropharyngeal dysphagia. Anemia. Decubitus ulcers Diabetes type 2. Hypertension. Leukocytosis. Anemia that is microcytic. Elevated serum transaminases. [id number] metabolic acidosis. Lactic acidosis. Severe protein-calorie malnutrition ( has advised us she wants a tracheostomy and continued aggressive care) - discussed with attending - prn CXR's and ABG's at this point - not weaning well today but if he shows significant tolerace of SBT's over an extended few day periods a trial of extubation may still be considered - no new issues otherwise, continue care as below otherwise - follow repeat COVID-19 - surgery evaluation ongoing for tracheostomy placement (await negative COVID test) - continue care as below otherwise - continue fentanyl gtt for pain control / sedation - continue to wean supplemental oxygen for target O2 sat's > 90% acutely - continue daily SAT's and SBT assessment as tolerated - VAP bundle addressed - continue lung protective strategies - continue bronchodilators with pulmonary hygiene per RT - wean per pulmonary driven protocols otherwise - prn Levophed for target MAP > 65 mmHg - continue airborne and contact COVID-19 precautions - COVID-19 test positive - complete anti-infectives and de-escalate per ID recommendations - continue wound care per WCT - sedation prn for target RASS 0 to -1 - accuchecks with glycemic control per SSI (While critically ill target blood glucose of 140-180 mg/dL; avoid hypoglycemia) - to avoid benzodiazepine's, reduce the possibility of delirium - prn analgesia per CPOT score - Maintenance of sleep-wake cycle, avoid delirium - continue enteral nutritional support at goal rate as tolerated - G.I. & VTE prophylaxis - PT/OT/ROM exercises - continue mobility protocols for pressure ulcer prophylaxis - Monitor hemodynamics closely - continue other care per attending / other consultants - discharge planning ongoing concurrently .... Re-evaluate in am & prn CONDITION: CRITICAL PROGNOSIS: GUARDED CODE STATUS: FULL CODE The high probability of a clinically significant, sudden or life-threatening deterioration of the [respiratory & cardiovascular] system(s) required my full and direct attention, intervention and personal management. The aggregate critical care time was [32] minutes without overlap. Time includes spent on; [x] Data Review and interpretation [x] Patient assessment and monitoring of vital signs [x] Documentation [x] Medication orders and management Subjective Date of service: 08/18/19 Principal diagnosis: Bilateral pneumonia, severe sepsis with septic shock, encephalopathy Interval history: Patient is seen today for: Ac hypoxemic Resp failure on MVS; Severe sepsis with Shock; Ivan. Pneumonia; PUI coronavirus-19 infection. Seen and examined at bedside; 24hour events reviewed; nursing and respiratory care staff consulted; no adverse overnight events reported to me; resting in bed; remains on MVS; AMS is persistent; weaning remains terrible; no emesis or overt aspiration Objective Vital Signs - 12hr 08/18/19 08/18/19 08/18/19 04:00 04:19 05:00 Temperature 99.0 F Pulse Rate 102 H 106 H 105 H Pulse Rate [ 102 H From Monitor] Respiratory 23 13 Rate Blood Pressure 153/89 151/83 154/91 O2 Sat by Pulse 100 100 100 Oximetry 08/18/19 08/18/19 08/18/19 06:00 07:00 08:00 Temperature 98.0 F Pulse Rate 115 H 118 H 125 H Pulse Rate [ 102 H From Monitor] Respiratory 15 11 L 17 Rate Blood Pressure 148/82 130/75 141/75 O2 Sat by Pulse 100 96 100 Oximetry 08/18/19 08/18/19 08/18/19 09:00 09:45 10:00 Temperature Pulse Rate 128 H 124 H 129 H Pulse Rate [ From Monitor] Respiratory 21 25 H Rate Blood Pressure 140/74 135/74 134/72 O2 Sat by Pulse 96 95 95 Oximetry 08/18/19 08/18/19 08/18/19 10:20 11:00 12:00 Temperature 101.8 F H Pulse Rate 126 H 136 H 137 H Pulse Rate [ 139 H From Monitor] Respiratory 33 H 17 28 H Rate Blood Pressure 134/75 143/75 132/70 O2 Sat by Pulse 96 95 96 Oximetry 08/18/19 13:00 Temperature Pulse Rate 144 H Pulse Rate [ From Monitor] Respiratory 20 Rate Blood Pressure 120/68 O2 Sat by Pulse 95 Oximetry Constitutional: appears uncomfortable, other (eelderly and chronically ill looking AAM, normocep[krystina;ic with mildly increased respiratory effort at rest) Eyes: non-icteric ENT: oropharynx moist, other (ETT 24 cm RUTH) Neck: supple, no lymphadenopathy, no JVD Effort: very labored Ascultation: Bilateral: diminished breath sounds, rhonchi Percussion: Bilateral: not dull Cardiovascular: regular rate and rhythm Gastrointestinal: normoactive bowel sounds, soft, non-tender, non-distended, other (+ PEG tube with mild TF leakage) Integumentary: decubitus ulcer (sacral) Extremities: no cyanosis, no edema, pink and warm, pulses normal Neurologic: pupils equal and round, unable to assess Psychiatric: other (Unable to assess re: AMS) CBC and BMP: 08/19/19 08:17 08/19/19 07:44 ABG, PT/INR, D-dimer: ABG ABG pH 7.405 pH Units (7.350-7.450) 08/17/19 20:20 ABG pCO2 45.3 mm Hg 08/17/19 20:20 ABG pO2 84.2 mm Hg (80.0-90.0) 08/17/19 20:20 ABG O2 Saturation 96.9 % (95.0-99.0) 08/17/19 20:20 PT/INR, D-dimer PT 16.0 Sec. (12.2-14.9) H 07/03/19 22:20 INR 1.26 (0.87-1.13) H 07/03/19 22:20 D-Dimer 1808.06 ng/mlDDU (0-234) H 08/07/19 10:24 Abnormal lab findings: Abnormal Labs 07/03/19 07/03/19 07/03/19 19:57 21:10 21:13 WBC RBC Hgb Hct MCV MCH MCHC RDW Plt Count Lymph % (Auto) [place] % (Auto) Lymph # [place] # Baso # Seg Neutrophils % Seg Neuts % (Manual) Lymphocytes % (Manual) Monocytes % (Manual) Nucleated RBC % Seg Neutrophils # Seg Neutrophils # Man Lymphocytes # (Manual) Monocytes # (Manual) Basophils # (Manual) PT INR D-Dimer ABG pH 7.238 L ABG pO2 210.8 H ABG HCO3 15.4 L ABG O2 Saturation 99.2 H ABG Base Excess -11.1 L ABG Hemoglobin 8.0 L Oxyhemoglobin Sodium 124 L Potassium Chloride 92.9 L Carbon Dioxide 10 L BUN 23 H Creatinine 0.5 L Glucose 118 H POC Glucose Lactic Acid Calcium 7.0 L Magnesium Iron TIBC Ferritin AST 70 H ALT 88 H Lactate Dehydrogenase Troponin T 0.032 H C-Reactive Protein Total Protein 5.0 L Albumin 1.8 L Prealbumin Cholesterol 47 L LDL Cholesterol Direct 25 L HDL Cholesterol 20 L Urine WBC (Auto) 12.0 H Vancomycin Trough Coronavirus (PCR) Crossmatch 07/03/19 07/03/19 07/03/19 22:20 22:20 22:20 WBC 30.5 H RBC 2.96 L Hgb 7.7 L Hct 23.9 L MCV 81 L MCH 26 L MCHC RDW 18.6 H Plt Count 459 H Lymph % (Auto) [place] % (Auto) Lymph # [place] # Baso # Seg Neutrophils % Seg Neuts % (Manual) 93.0 H Lymphocytes % (Manual) 0.5 L Monocytes % (Manual) Nucleated RBC % Seg Neutrophils # Seg Neutrophils # Man 28.4 H Lymphocytes # (Manual) 0.2 L Monocytes # (Manual) Basophils # (Manual) PT 16.0 H INR 1.26 H D-Dimer ABG pH ABG pO2 ABG HCO3 ABG O2 Saturation ABG Base Excess ABG Hemoglobin Oxyhemoglobin Sodium Potassium Chloride Carbon Dioxide BUN Creatinine Glucose POC Glucose Lactic Acid 6.90 H* Calcium Magnesium Iron TIBC Ferritin AST ALT Lactate Dehydrogenase Troponin T C-Reactive Protein Total Protein Albumin Prealbumin Cholesterol LDL Cholesterol Direct HDL Cholesterol Urine WBC (Auto) Vancomycin Trough Coronavirus (PCR) Crossmatch 07/03/19 07/04/19 07/04/19 23:58 05:15 07:05 WBC 17.1 H RBC 3.22 L Hgb 8.3 L Hct 25.4 L MCV 79 L MCH 26 L MCHC RDW 18.6 H Plt Count Lymph % (Auto) [place] % (Auto) Lymph # [place] # Baso # Seg Neutrophils % Seg Neuts % (Manual) 74.0 H Lymphocytes % (Manual) 0 L Monocytes % (Manual) Nucleated RBC % Seg Neutrophils # Seg Neutrophils # Man 12.7 H Lymphocytes # (Manual) 0.0 L Monocytes # (Manual) Basophils # (Manual) PT INR D-Dimer ABG pH 7.310 L ABG pO2 73.2 L ABG HCO3 17.8 L ABG O2 Saturation 93.8 L ABG Base Excess -7.7 L ABG Hemoglobin 9.6 L Oxyhemoglobin 92.3 L Sodium Potassium Chloride Carbon Dioxide BUN Creatinine Glucose POC Glucose Lactic Acid 7.10 H* Calcium Magnesium Iron TIBC Ferritin AST ALT Lactate Dehydrogenase Troponin T C-Reactive Protein Total Protein Albumin Prealbumin Cholesterol LDL Cholesterol Direct HDL Cholesterol Urine WBC (Auto) Vancomycin Trough Coronavirus (PCR) Crossmatch 07/04/19 07/04/19 07/04/19 07:05 07:05 07:05 WBC RBC Hgb Hct MCV MCH MCHC RDW Plt Count Lymph % (Auto) [place] % (Auto) Lymph # [place] # Baso # Seg Neutrophils % Seg Neuts % (Manual) Lymphocytes % (Manual) Monocytes % (Manual) Nucleated RBC % Seg Neutrophils # Seg Neutrophils # Man Lymphocytes # (Manual) Monocytes # (Manual) Basophils # (Manual) PT INR D-Dimer ABG pH ABG pO2 ABG HCO3 ABG O2 Saturation ABG Base Excess ABG Hemoglobin Oxyhemoglobin Sodium 120 L Potassium 5.1 H Chloride 90.0 L Carbon Dioxide 14 L BUN 26 H Creatinine 0.5 L Glucose POC Glucose Lactic Acid 3.30 H* Calcium 8.0 L Magnesium Iron 9 L TIBC 97 L Ferritin AST 73 H ALT 91 H Lactate Dehydrogenase Troponin T C-Reactive Protein Total Protein 5.5 L Albumin 2.0 L Prealbumin Cholesterol LDL Cholesterol Direct HDL Cholesterol Urine WBC (Auto) Vancomycin Trough Coronavirus (PCR) Crossmatch 07/04/19 07/04/19 07/04/19 09:39 09:39 09:39 WBC RBC Hgb Hct MCV MCH MCHC RDW Plt Count Lymph % (Auto) [place] % (Auto) Lymph # [place] # Baso # Seg Neutrophils % Seg Neuts % (Manual) Lymphocytes % (Manual) Monocytes % (Manual) Nucleated RBC % Seg Neutrophils # Seg Neutrophils # Man Lymphocytes # (Manual) Monocytes # (Manual) Basophils # (Manual) PT INR D-Dimer 1419.14 H ABG pH ABG pO2 ABG HCO3 ABG O2 Saturation ABG Base Excess ABG Hemoglobin Oxyhemoglobin Sodium Potassium Chloride Carbon Dioxide BUN Creatinine Glucose POC Glucose Lactic Acid Calcium Magnesium Iron TIBC Ferritin 1719.0 H AST ALT Lactate Dehydrogenase 234 H Troponin T C-Reactive Protein 15.50 H Total Protein Albumin Prealbumin Cholesterol LDL Cholesterol Direct HDL Cholesterol Urine WBC (Auto) Vancomycin Trough Coronavirus (PCR) Crossmatch 07/04/19 07/04/19 07/04/19 10:09 18:08 18:28 WBC RBC Hgb Hct MCV MCH MCHC RDW Plt Count Lymph % (Auto) [place] % (Auto) Lymph # [place] # Baso # Seg Neutrophils % Seg Neuts % (Manual) Lymphocytes % (Manual) Monocytes % (Manual) Nucleated RBC % Seg Neutrophils # Seg Neutrophils # Man Lymphocytes # (Manual) Monocytes # (Manual) Basophils # (Manual) PT INR D-Dimer ABG pH ABG pO2 ABG HCO3 ABG O2 Saturation ABG Base Excess ABG Hemoglobin Oxyhemoglobin Sodium 117 L* Potassium 5.6 H Chloride 90.3 L Carbon Dioxide 16 L BUN 28 H Creatinine 0.5 L Glucose 58 L POC Glucose 65 L Lactic Acid Calcium 8.2 L Magnesium Iron TIBC Ferritin AST ALT Lactate Dehydrogenase Troponin T C-Reactive Protein Total Protein Albumin Prealbumin Cholesterol LDL Cholesterol Direct HDL Cholesterol Urine WBC (Auto) Vancomycin Trough Coronavirus (PCR) Positive A Crossmatch 07/04/19 07/04/19 07/04/19 23:45 Unknown Unknown WBC RBC Hgb Hct MCV MCH MCHC RDW Plt Count Lymph % (Auto) [place] % (Auto) Lymph # [place] # Baso # Seg Neutrophils % Seg Neuts % (Manual) Lymphocytes % (Manual) Monocytes % (Manual) Nucleated RBC % Seg Neutrophils # Seg Neutrophils # Man Lymphocytes # (Manual) Monocytes # (Manual) Basophils # (Manual) PT INR D-Dimer 759.77 H ABG pH ABG pO2 ABG HCO3 ABG O2 Saturation ABG Base Excess ABG Hemoglobin Oxyhemoglobin Sodium 122 L Potassium Chloride 93.0 L Carbon Dioxide 19 L BUN 27 H Creatinine 0.5 L Glucose POC Glucose Lactic Acid Calcium 8.3 L Magnesium Iron TIBC Ferritin 1301.0 H AST ALT Lactate Dehydrogenase Troponin T C-Reactive Protein Total Protein Albumin Prealbumin Cholesterol LDL Cholesterol Direct HDL Cholesterol Urine WBC (Auto) Vancomycin Trough Coronavirus (PCR) Crossmatch 07/04/19 07/05/19 07/05/19 Unknown 03:20 04:00 WBC RBC Hgb Hct MCV MCH MCHC RDW Plt Count Lymph % (Auto) [place] % (Auto) Lymph # [place] # Baso # Seg Neutrophils % Seg Neuts % (Manual) Lymphocytes % (Manual) Monocytes % (Manual) Nucleated RBC % Seg Neutrophils # Seg Neutrophils # Man Lymphocytes # (Manual) Monocytes # (Manual) Basophils # (Manual) PT INR D-Dimer ABG pH ABG pO2 60.6 L ABG HCO3 ABG O2 Saturation 93.5 L ABG Base Excess -2.4 L ABG Hemoglobin 6.9 L Oxyhemoglobin 92.0 L Sodium 125 L Potassium Chloride 92.6 L Carbon Dioxide 19 L BUN 24 H Creatinine 0.6 L Glucose POC Glucose Lactic Acid Calcium 8.2 L Magnesium 1.40 L Iron TIBC Ferritin AST ALT Lactate Dehydrogenase 242 H Troponin T C-Reactive Protein 16.70 H Total Protein Albumin Prealbumin Cholesterol LDL Cholesterol Direct HDL Cholesterol Urine WBC (Auto) Vancomycin Trough Coronavirus (PCR) Crossmatch 07/05/19 07/05/19 07/05/19 10:11 16:15 17:54 WBC 46.4 H* RBC 2.77 L Hgb 7.2 L Hct 21.9 L MCV 79 L MCH 26 L MCHC RDW 19.0 H Plt Count Lymph % (Auto) [place] % (Auto) Lymph # [place] # Baso # Seg Neutrophils % Seg Neuts % (Manual) 82.0 H Lymphocytes % (Manual) 1.0 L Monocytes % (Manual) Nucleated RBC % Seg Neutrophils # Seg Neutrophils # Man 38.0 H Lymphocytes # (Manual) 0.5 L Monocytes # (Manual) Basophils # (Manual) PT INR D-Dimer ABG pH ABG pO2 ABG HCO3 ABG O2 Saturation ABG Base Excess ABG Hemoglobin Oxyhemoglobin Sodium Potassium Chloride Carbon Dioxide BUN Creatinine Glucose POC Glucose 69 L Lactic Acid Calcium Magnesium Iron TIBC Ferritin AST ALT Lactate Dehydrogenase Troponin T C-Reactive Protein Total Protein Albumin Prealbumin Cholesterol LDL Cholesterol Direct HDL Cholesterol Urine WBC (Auto) Vancomycin Trough 23.2 H Coronavirus (PCR) Crossmatch 07/05/19 07/06/19 07/06/19 19:58 00:27 00:27 WBC RBC Hgb Hct MCV MCH MCHC RDW Plt Count Lymph % (Auto) [place] % (Auto) Lymph # [place] # Baso # Seg Neutrophils % Seg Neuts % (Manual) Lymphocytes % (Manual) Monocytes % (Manual) Nucleated RBC % Seg Neutrophils # Seg Neutrophils # Man Lymphocytes # (Manual) Monocytes # (Manual) Basophils # (Manual) PT INR D-Dimer 1333.22 H ABG pH ABG pO2 ABG HCO3 ABG O2 Saturation ABG Base Excess ABG Hemoglobin Oxyhemoglobin Sodium 127 L Potassium Chloride Carbon Dioxide BUN Creatinine Glucose POC Glucose Lactic Acid Calcium Magnesium Iron TIBC Ferritin 977.1 H AST ALT Lactate Dehydrogenase Troponin T C-Reactive Protein Total Protein Albumin Prealbumin Cholesterol LDL Cholesterol Direct HDL Cholesterol Urine WBC (Auto) Vancomycin Trough Coronavirus (PCR) Crossmatch 07/06/19 07/06/19 07/06/19 00:27 02:00 02:56 WBC RBC Hgb Hct MCV MCH MCHC RDW Plt Count Lymph % (Auto) [place] % (Auto) Lymph # [place] # Baso # Seg Neutrophils % Seg Neuts % (Manual) Lymphocytes % (Manual) Monocytes % (Manual) Nucleated RBC % Seg Neutrophils # Seg Neutrophils # Man Lymphocytes # (Manual) Monocytes # (Manual) Basophils # (Manual) PT INR D-Dimer ABG pH ABG pO2 70.3 L ABG HCO3 ABG O2 Saturation 94.8 L ABG Base Excess ABG Hemoglobin 8.0 L Oxyhemoglobin 93.2 L Sodium Potassium Chloride Carbon Dioxide BUN Creatinine Glucose POC Glucose 117 H Lactic Acid Calcium Magnesium Iron TIBC Ferritin AST ALT Lactate Dehydrogenase 236 H Troponin T C-Reactive Protein 22.90 H Total Protein Albumin Prealbumin Cholesterol LDL Cholesterol Direct HDL Cholesterol Urine WBC (Auto) Vancomycin Trough Coronavirus (PCR) Crossmatch 07/06/19 07/06/19 07/06/19 03:49 03:49 07:40 WBC 38.8 H RBC 2.51 L Hgb 6.7 L Hct 19.9 L* MCV 79 L MCH 27 L MCHC RDW 19.2 H Plt Count Lymph % (Auto) [place] % (Auto) Lymph # [place] # Baso # Seg Neutrophils % Seg Neuts % (Manual) 90.5 H Lymphocytes % (Manual) 1.0 L Monocytes % (Manual) Nucleated RBC % Seg Neutrophils # Seg Neutrophils # Man 35.1 H Lymphocytes # (Manual) 0.4 L Monocytes # (Manual) Basophils # (Manual) PT INR D-Dimer ABG pH ABG pO2 ABG HCO3 ABG O2 Saturation ABG Base Excess ABG Hemoglobin Oxyhemoglobin Sodium 131 L Potassium Chloride 96.9 L Carbon Dioxide 18 L BUN 23 H Creatinine 0.5 L Glucose POC Glucose Lactic Acid Calcium 8.0 L Magnesium Iron TIBC Ferritin AST ALT Lactate Dehydrogenase Troponin T C-Reactive Protein Total Protein Albumin Prealbumin Cholesterol LDL Cholesterol Direct HDL Cholesterol Urine WBC (Auto) Vancomycin Trough Coronavirus (PCR) Crossmatch See Detail 07/06/19 07/06/19 07/06/19 12:38 14:39 20:00 WBC RBC Hgb Hct MCV MCH MCHC RDW Plt Count Lymph % (Auto) [place] % (Auto) Lymph # [place] # Baso # Seg Neutrophils % Seg Neuts % (Manual) Lymphocytes % (Manual) Monocytes % (Manual) Nucleated RBC % Seg Neutrophils # Seg Neutrophils # Man Lymphocytes # (Manual) Monocytes # (Manual) Basophils # (Manual) PT INR D-Dimer ABG pH ABG pO2 ABG HCO3 ABG O2 Saturation ABG Base Excess ABG Hemoglobin Oxyhemoglobin Sodium Potassium Chloride Carbon Dioxide BUN Creatinine Glucose POC Glucose 112 H 111 H 140 H Lactic Acid Calcium Magnesium Iron TIBC Ferritin AST ALT Lactate Dehydrogenase Troponin T C-Reactive Protein Total Protein Albumin Prealbumin Cholesterol LDL Cholesterol Direct HDL Cholesterol Urine WBC (Auto) Vancomycin Trough Coronavirus (PCR) Crossmatch 07/06/19 07/06/19 07/07/19 22:43 22:56 02:20 WBC RBC Hgb 7.9 L Hct 23.1 L MCV MCH MCHC RDW Plt Count Lymph % (Auto) [place] % (Auto) Lymph # [place] # Baso # Seg Neutrophils % Seg Neuts % (Manual) Lymphocytes % (Manual) Monocytes % (Manual) Nucleated RBC % Seg Neutrophils # Seg Neutrophils # Man Lymphocytes # (Manual) Monocytes # (Manual) Basophils # (Manual) PT INR D-Dimer ABG pH ABG pO2 ABG HCO3 ABG O2 Saturation ABG Base Excess ABG Hemoglobin Oxyhemoglobin Sodium Potassium Chloride Carbon Dioxide BUN Creatinine Glucose POC Glucose 122 H 149 H Lactic Acid Calcium Magnesium Iron TIBC Ferritin AST ALT Lactate Dehydrogenase Troponin T C-Reactive Protein Total Protein Albumin Prealbumin Cholesterol LDL Cholesterol Direct HDL Cholesterol Urine WBC (Auto) Vancomycin Trough Coronavirus (PCR) Crossmatch 07/07/19 07/07/19 07/07/19 04:35 05:27 05:34 WBC 23.1 H RBC 3.00 L Hgb 8.1 L Hct 24.2 L MCV 81 L MCH 27 L MCHC RDW 20.6 H Plt Count Lymph % (Auto) [place] % (Auto) Lymph # [place] # Baso # Seg Neutrophils % Seg Neuts % (Manual) 90.0 H Lymphocytes % (Manual) 2.0 L Monocytes % (Manual) Nucleated RBC % Seg Neutrophils # Seg Neutrophils # Man 20.8 H Lymphocytes # (Manual) 0.5 L Monocytes # (Manual) Basophils # (Manual) PT INR D-Dimer ABG pH ABG pO2 65.8 L ABG HCO3 ABG O2 Saturation 92.2 L ABG Base Excess ABG Hemoglobin 8.3 L Oxyhemoglobin 90.6 L Sodium Potassium Chloride Carbon Dioxide BUN Creatinine Glucose POC Glucose 132 H Lactic Acid Calcium Magnesium Iron TIBC Ferritin AST ALT Lactate Dehydrogenase Troponin T C-Reactive Protein Total Protein Albumin Prealbumin Cholesterol LDL Cholesterol Direct HDL Cholesterol Urine WBC (Auto) Vancomycin Trough Coronavirus (PCR) Crossmatch 07/07/19 07/07/19 07/07/19 05:34 11:50 15:58 WBC RBC Hgb 8.1 L Hct 24.2 L MCV MCH MCHC RDW Plt Count Lymph % (Auto) [place] % (Auto) Lymph # [place] # Baso # Seg Neutrophils % Seg Neuts % (Manual) Lymphocytes % (Manual) Monocytes % (Manual) Nucleated RBC % Seg Neutrophils # Seg Neutrophils # Man Lymphocytes # (Manual) Monocytes # (Manual) Basophils # (Manual) PT INR D-Dimer ABG pH ABG pO2 ABG HCO3 ABG O2 Saturation ABG Base Excess ABG Hemoglobin Oxyhemoglobin Sodium 135 L Potassium 3.3 L Chloride Carbon Dioxide 20 L BUN 27 H Creatinine 0.6 L Glucose 121 H POC Glucose 123 H Lactic Acid Calcium 8.0 L Magnesium Iron TIBC Ferritin AST ALT Lactate Dehydrogenase Troponin T C-Reactive Protein Total Protein Albumin Prealbumin Cholesterol LDL Cholesterol Direct HDL Cholesterol Urine WBC (Auto) Vancomycin Trough Coronavirus (PCR) Crossmatch 07/07/19 07/07/19 07/07/19 17:42 22:00 23:53 WBC RBC Hgb 8.0 L Hct 23.4 L MCV MCH MCHC RDW Plt Count Lymph % (Auto) [place] % (Auto) Lymph # [place] # Baso # Seg Neutrophils % Seg Neuts % (Manual) Lymphocytes % (Manual) Monocytes % (Manual) Nucleated RBC % Seg Neutrophils # Seg Neutrophils # Man Lymphocytes # (Manual) Monocytes # (Manual) Basophils # (Manual) PT INR D-Dimer ABG pH ABG pO2 ABG HCO3 ABG O2 Saturation ABG Base Excess ABG Hemoglobin Oxyhemoglobin Sodium Potassium Chloride Carbon Dioxide BUN Creatinine Glucose POC Glucose 107 H 117 H Lactic Acid Calcium Magnesium Iron TIBC Ferritin AST ALT Lactate Dehydrogenase Troponin T C-Reactive Protein Total Protein Albumin Prealbumin Cholesterol LDL Cholesterol Direct HDL Cholesterol Urine WBC (Auto) Vancomycin Trough Coronavirus (PCR) Crossmatch 07/08/19 07/08/19 07/08/19 00:45 00:45 00:45 WBC RBC Hgb Hct MCV MCH MCHC RDW Plt Count Lymph % (Auto) [place] % (Auto) Lymph # [place] # Baso # Seg Neutrophils % Seg Neuts % (Manual) Lymphocytes % (Manual) Monocytes % (Manual) Nucleated RBC % Seg Neutrophils # Seg Neutrophils # Man Lymphocytes # (Manual) Monocytes # (Manual) Basophils # (Manual) PT INR D-Dimer 1142.18 H ABG pH ABG pO2 ABG HCO3 ABG O2 Saturation ABG Base Excess ABG Hemoglobin Oxyhemoglobin Sodium Potassium Chloride Carbon Dioxide BUN Creatinine Glucose POC Glucose Lactic Acid Calcium Magnesium Iron TIBC Ferritin 839.0 H AST ALT Lactate Dehydrogenase 253 H Troponin T C-Reactive Protein 18.90 H Total Protein Albumin Prealbumin Cholesterol LDL Cholesterol Direct HDL Cholesterol Urine WBC (Auto) Vancomycin Trough Coronavirus (PCR) Crossmatch 07/08/19 07/08/19 07/08/19 04:30 05:11 12:02 WBC RBC Hgb Hct MCV MCH MCHC RDW Plt Count Lymph % (Auto) [place] % (Auto) Lymph # [place] # Baso # Seg Neutrophils % Seg Neuts % (Manual) Lymphocytes % (Manual) Monocytes % (Manual) Nucleated RBC % Seg Neutrophils # Seg Neutrophils # Man Lymphocytes # (Manual) Monocytes # (Manual) Basophils # (Manual) PT INR D-Dimer ABG pH ABG pO2 66.0 L ABG HCO3 ABG O2 Saturation 92.3 L ABG Base Excess ABG Hemoglobin 7.7 L Oxyhemoglobin 90.7 L Sodium Potassium Chloride Carbon Dioxide BUN Creatinine Glucose POC Glucose 108 H 153 H Lactic Acid Calcium Magnesium Iron TIBC Ferritin AST ALT Lactate Dehydrogenase Troponin T C-Reactive Protein Total Protein Albumin Prealbumin Cholesterol LDL Cholesterol Direct HDL Cholesterol Urine WBC (Auto) Vancomycin Trough Coronavirus (PCR) Crossmatch 07/08/19 07/08/19 07/08/19 16:15 18:22 23:35 WBC RBC Hgb Hct MCV MCH MCHC RDW Plt Count Lymph % (Auto) [place] % (Auto) Lymph # [place] # Baso # Seg Neutrophils % Seg Neuts % (Manual) Lymphocytes % (Manual) Monocytes % (Manual) Nucleated RBC % Seg Neutrophils # Seg Neutrophils # Man Lymphocytes # (Manual) Monocytes # (Manual) Basophils # (Manual) PT INR D-Dimer ABG pH ABG pO2 ABG HCO3 ABG O2 Saturation ABG Base Excess ABG Hemoglobin Oxyhemoglobin Sodium 134 L Potassium 3.3 L Chloride Carbon Dioxide 21 L BUN 27 H Creatinine 0.6 L Glucose 146 H POC Glucose 134 H 133 H Lactic Acid Calcium Magnesium Iron TIBC Ferritin AST ALT Lactate Dehydrogenase Troponin T C-Reactive Protein Total Protein Albumin Prealbumin Cholesterol LDL Cholesterol Direct HDL Cholesterol Urine WBC (Auto) Vancomycin Trough Coronavirus (PCR) Crossmatch 07/09/19 07/09/19 07/09/19 04:30 04:30 05:00 WBC 18.9 H RBC 2.77 L Hgb 7.4 L Hct 22.8 L MCV 82 L MCH 27 L MCHC RDW 20.9 H Plt Count 130 L Lymph % (Auto) [place] % (Auto) Lymph # [place] # Baso # Seg Neutrophils % Seg Neuts % (Manual) 84.0 H Lymphocytes % (Manual) 0 L Monocytes % (Manual) Nucleated RBC % Seg Neutrophils # Seg Neutrophils # Man 15.9 H Lymphocytes # (Manual) 0.0 L Monocytes # (Manual) Basophils # (Manual) PT INR D-Dimer ABG pH ABG pO2 ABG HCO3 ABG O2 Saturation ABG Base Excess ABG Hemoglobin Oxyhemoglobin Sodium Potassium 3.1 L Chloride Carbon Dioxide BUN 26 H Creatinine 0.5 L Glucose 125 H POC Glucose 155 H Lactic Acid Calcium Magnesium Iron TIBC Ferritin AST ALT Lactate Dehydrogenase Troponin T C-Reactive Protein Total Protein Albumin Prealbumin Cholesterol LDL Cholesterol Direct HDL Cholesterol Urine WBC (Auto) Vancomycin Trough Coronavirus (PCR) Crossmatch 07/09/19 07/09/19 07/09/19 05:55 12:22 17:50 WBC RBC Hgb Hct MCV MCH MCHC RDW Plt Count Lymph % (Auto) [place] % (Auto) Lymph # [place] # Baso # Seg Neutrophils % Seg Neuts % (Manual) Lymphocytes % (Manual) Monocytes % (Manual) Nucleated RBC % Seg Neutrophils # Seg Neutrophils # Man Lymphocytes # (Manual) Monocytes # (Manual) Basophils # (Manual) PT INR D-Dimer ABG pH ABG pO2 62.8 L ABG HCO3 ABG O2 Saturation ABG Base Excess ABG Hemoglobin 6.1 L Oxyhemoglobin 93.9 L Sodium Potassium Chloride Carbon Dioxide BUN Creatinine Glucose POC Glucose 115 H 133 H Lactic Acid Calcium Magnesium Iron TIBC Ferritin AST ALT Lactate Dehydrogenase Troponin T C-Reactive Protein Total Protein Albumin Prealbumin Cholesterol LDL Cholesterol Direct HDL Cholesterol Urine WBC (Auto) Vancomycin Trough Coronavirus (PCR) Crossmatch 07/10/19 07/10/19 07/10/19 00:38 04:00 04:00 WBC RBC Hgb Hct MCV MCH MCHC RDW Plt Count Lymph % (Auto) [place] % (Auto) Lymph # [place] # Baso # Seg Neutrophils % Seg Neuts % (Manual) Lymphocytes % (Manual) Monocytes % (Manual) Nucleated RBC % Seg Neutrophils # Seg Neutrophils # Man Lymphocytes # (Manual) Monocytes # (Manual) Basophils # (Manual) PT INR D-Dimer ABG pH ABG pO2 ABG HCO3 ABG O2 Saturation ABG Base Excess ABG Hemoglobin Oxyhemoglobin Sodium Potassium Chloride 107.9 H Carbon Dioxide BUN 26 H Creatinine 0.4 L Glucose 137 H POC Glucose 122 H Lactic Acid Calcium Magnesium 1.50 L Iron TIBC Ferritin AST ALT Lactate Dehydrogenase 277 H Troponin T C-Reactive Protein 15.10 H Total Protein Albumin Prealbumin Cholesterol LDL Cholesterol Direct HDL Cholesterol Urine WBC (Auto) Vancomycin Trough Coronavirus (PCR) Crossmatch 07/10/19 07/10/19 07/10/19 04:07 05:21 17:25 WBC RBC Hgb Hct MCV MCH MCHC RDW Plt Count Lymph % (Auto) [place] % (Auto) Lymph # [place] # Baso # Seg Neutrophils % Seg Neuts % (Manual) Lymphocytes % (Manual) Monocytes % (Manual) Nucleated RBC % Seg Neutrophils # Seg Neutrophils # Man Lymphocytes # (Manual) Monocytes # (Manual) Basophils # (Manual) PT INR D-Dimer ABG pH ABG pO2 65.6 L ABG HCO3 26.3 H ABG O2 Saturation ABG Base Excess ABG Hemoglobin 6.7 L Oxyhemoglobin Sodium Potassium Chloride Carbon Dioxide BUN Creatinine Glucose POC Glucose 144 H 113 H Lactic Acid Calcium Magnesium Iron TIBC Ferritin AST ALT Lactate Dehydrogenase Troponin T C-Reactive Protein Total Protein Albumin Prealbumin Cholesterol LDL Cholesterol Direct HDL Cholesterol Urine WBC (Auto) Vancomycin Trough Coronavirus (PCR) Crossmatch 07/11/19 07/11/19 07/11/19 00:07 05:14 05:25 WBC RBC Hgb Hct MCV MCH MCHC RDW Plt Count Lymph % (Auto) [place] % (Auto) Lymph # [place] # Baso # Seg Neutrophils % Seg Neuts % (Manual) Lymphocytes % (Manual) Monocytes % (Manual) Nucleated RBC % Seg Neutrophils # Seg Neutrophils # Man Lymphocytes # (Manual) Monocytes # (Manual) Basophils # (Manual) PT INR D-Dimer ABG pH ABG pO2 ABG HCO3 ABG O2 Saturation ABG Base Excess ABG Hemoglobin 5.8 L Oxyhemoglobin Sodium Potassium Chloride 108.0 H Carbon Dioxide BUN 26 H Creatinine 0.4 L Glucose 110 H POC Glucose 121 H Lactic Acid Calcium Magnesium Iron TIBC Ferritin AST ALT Lactate Dehydrogenase Troponin T C-Reactive Protein Total Protein Albumin Prealbumin Cholesterol LDL Cholesterol Direct HDL Cholesterol Urine WBC (Auto) Vancomycin Trough Coronavirus (PCR) Crossmatch 07/11/19 07/11/19 07/11/19 12:27 18:00 23:42 WBC RBC Hgb Hct MCV MCH MCHC RDW Plt Count Lymph % (Auto) [place] % (Auto) Lymph # [place] # Baso # Seg Neutrophils % Seg Neuts % (Manual) Lymphocytes % (Manual) Monocytes % (Manual) Nucleated RBC % Seg Neutrophils # Seg Neutrophils # Man Lymphocytes # (Manual) Monocytes # (Manual) Basophils # (Manual) PT INR D-Dimer ABG pH ABG pO2 ABG HCO3 ABG O2 Saturation ABG Base Excess ABG Hemoglobin Oxyhemoglobin Sodium Potassium Chloride Carbon Dioxide BUN Creatinine Glucose POC Glucose 158 H 141 H 142 H Lactic Acid Calcium Magnesium Iron TIBC Ferritin AST ALT Lactate Dehydrogenase Troponin T C-Reactive Protein Total Protein Albumin Prealbumin Cholesterol LDL Cholesterol Direct HDL Cholesterol Urine WBC (Auto) Vancomycin Trough Coronavirus (PCR) Crossmatch 07/12/19 07/12/19 07/12/19 04:46 04:46 05:23 WBC 23.6 H RBC 2.51 L Hgb 6.7 L Hct 20.8 L MCV 83 L MCH 27 L MCHC RDW 20.3 H Plt Count Lymph % (Auto) [place] % (Auto) Lymph # [place] # Baso # Seg Neutrophils % Seg Neuts % (Manual) 94.0 H Lymphocytes % (Manual) 4.0 L Monocytes % (Manual) Nucleated RBC % Seg Neutrophils # Seg Neutrophils # Man 22.2 H Lymphocytes # (Manual) 0.9 L Monocytes # (Manual) Basophils # (Manual) PT INR D-Dimer ABG pH ABG pO2 ABG HCO3 ABG O2 Saturation ABG Base Excess ABG Hemoglobin Oxyhemoglobin Sodium Potassium Chloride 107.1 H Carbon Dioxide BUN 25 H Creatinine 0.4 L Glucose 122 H POC Glucose 118 H Lactic Acid Calcium Magnesium Iron TIBC Ferritin AST ALT Lactate Dehydrogenase Troponin T C-Reactive Protein Total Protein Albumin Prealbumin Cholesterol LDL Cholesterol Direct HDL Cholesterol Urine WBC (Auto) Vancomycin Trough Coronavirus (PCR) Crossmatch 07/12/19 07/12/19 07/12/19 08:49 11:36 18:15 WBC RBC Hgb Hct MCV MCH MCHC RDW Plt Count Lymph % (Auto) [place] % (Auto) Lymph # [place] # Baso # Seg Neutrophils % Seg Neuts % (Manual) Lymphocytes % (Manual) Monocytes % (Manual) Nucleated RBC % Seg Neutrophils # Seg Neutrophils # Man Lymphocytes # (Manual) Monocytes # (Manual) Basophils # (Manual) PT INR D-Dimer ABG pH ABG pO2 ABG HCO3 ABG O2 Saturation ABG Base Excess ABG Hemoglobin Oxyhemoglobin Sodium Potassium Chloride Carbon Dioxide BUN Creatinine Glucose POC Glucose 124 H 110 H Lactic Acid Calcium Magnesium Iron TIBC Ferritin AST ALT Lactate Dehydrogenase Troponin T C-Reactive Protein Total Protein Albumin Prealbumin Cholesterol LDL Cholesterol Direct HDL Cholesterol Urine WBC (Auto) Vancomycin Trough Coronavirus (PCR) Crossmatch See Detail 07/12/19 07/13/19 07/13/19 23:16 05:26 06:50 WBC 23.9 H RBC 2.58 L Hgb 6.9 L Hct 21.5 L MCV 83 L MCH 27 L MCHC RDW 19.0 H Plt Count Lymph % (Auto) [place] % (Auto) Lymph # [place] # Baso # Seg Neutrophils % Seg Neuts % (Manual) 96.0 H Lymphocytes % (Manual) 3.0 L Monocytes % (Manual) Nucleated RBC % Seg Neutrophils # Seg Neutrophils # Man 22.9 H Lymphocytes # (Manual) 0.7 L Monocytes # (Manual) Basophils # (Manual) PT INR D-Dimer ABG pH ABG pO2 ABG HCO3 ABG O2 Saturation ABG Base Excess ABG Hemoglobin Oxyhemoglobin Sodium Potassium Chloride Carbon Dioxide BUN Creatinine Glucose POC Glucose 108 H 126 H Lactic Acid Calcium Magnesium Iron TIBC Ferritin AST ALT Lactate Dehydrogenase Troponin T C-Reactive Protein Total Protein Albumin Prealbumin Cholesterol LDL Cholesterol Direct HDL Cholesterol Urine WBC (Auto) Vancomycin Trough Coronavirus (PCR) Crossmatch 07/13/19 07/13/19 07/13/19 06:50 12:38 18:05 WBC RBC Hgb Hct MCV MCH MCHC RDW Plt Count Lymph % (Auto) [place] % (Auto) Lymph # [place] # Baso # Seg Neutrophils % Seg Neuts % (Manual) Lymphocytes % (Manual) Monocytes % (Manual) Nucleated RBC % Seg Neutrophils # Seg Neutrophils # Man Lymphocytes # (Manual) Monocytes # (Manual) Basophils # (Manual) PT INR D-Dimer ABG pH ABG pO2 ABG HCO3 ABG O2 Saturation ABG Base Excess ABG Hemoglobin Oxyhemoglobin Sodium Potassium Chloride Carbon Dioxide BUN 33 H Creatinine 0.5 L Glucose 136 H POC Glucose 164 H 145 H Lactic Acid Calcium Magnesium Iron TIBC Ferritin AST ALT Lactate Dehydrogenase Troponin T C-Reactive Protein Total Protein Albumin Prealbumin Cholesterol LDL Cholesterol Direct HDL Cholesterol Urine WBC (Auto) Vancomycin Trough Coronavirus (PCR) Crossmatch 07/13/19 07/14/19 07/14/19 18:30 00:21 04:40 WBC 22.9 H RBC 2.45 L Hgb 6.6 L Hct 21.1 L MCV MCH 27 L MCHC 31 L RDW 19.2 H Plt Count Lymph % (Auto) [place] % (Auto) Lymph # [place] # Baso # Seg Neutrophils % Seg Neuts % (Manual) 91.0 H Lymphocytes % (Manual) 7.0 L Monocytes % (Manual) Nucleated RBC % Seg Neutrophils # Seg Neutrophils # Man 20.8 H Lymphocytes # (Manual) Monocytes # (Manual) Basophils # (Manual) PT INR D-Dimer ABG pH ABG pO2 58.1 L ABG HCO3 ABG O2 Saturation 88.7 L ABG Base Excess ABG Hemoglobin 7.8 L Oxyhemoglobin 86.8 L Sodium Potassium Chloride Carbon Dioxide BUN Creatinine Glucose POC Glucose 118 H Lactic Acid Calcium Magnesium Iron TIBC Ferritin AST ALT Lactate Dehydrogenase Troponin T C-Reactive Protein Total Protein Albumin Prealbumin Cholesterol LDL Cholesterol Direct HDL Cholesterol Urine WBC (Auto) Vancomycin Trough Coronavirus (PCR) Crossmatch 07/14/19 07/14/19 07/14/19 04:40 05:38 05:45 WBC RBC Hgb Hct MCV MCH MCHC RDW Plt Count Lymph % (Auto) [place] % (Auto) Lymph # [place] # Baso # Seg Neutrophils % Seg Neuts % (Manual) Lymphocytes % (Manual) Monocytes % (Manual) Nucleated RBC % Seg Neutrophils # Seg Neutrophils # Man Lymphocytes # (Manual) Monocytes # (Manual) Basophils # (Manual) PT INR D-Dimer ABG pH 7.230 L ABG pO2 72.1 L ABG HCO3 ABG O2 Saturation 89.3 L ABG Base Excess -2.7 L ABG Hemoglobin 6.7 L Oxyhemoglobin 87.7 L Sodium Potassium Chloride 107.4 H Carbon Dioxide BUN 45 H Creatinine Glucose 101 H POC Glucose 154 H Lactic Acid Calcium Magnesium Iron TIBC Ferritin AST ALT Lactate Dehydrogenase Troponin T C-Reactive Protein Total Protein Albumin Prealbumin Cholesterol LDL Cholesterol Direct HDL Cholesterol Urine WBC (Auto) Vancomycin Trough Coronavirus (PCR) Crossmatch 07/14/19 07/14/19 07/14/19 12:25 18:20 19:01 WBC 22.4 H RBC 2.70 L Hgb 7.5 L Hct 23.3 L MCV MCH MCHC RDW 19.5 H Plt Count Lymph % (Auto) [place] % (Auto) Lymph # [place] # Baso # Seg Neutrophils % Seg Neuts % (Manual) Lymphocytes % (Manual) Monocytes % (Manual) Nucleated RBC % Seg Neutrophils # Seg Neutrophils # Man Lymphocytes # (Manual) Monocytes # (Manual) Basophils # (Manual) PT INR D-Dimer ABG pH ABG pO2 ABG HCO3 ABG O2 Saturation ABG Base Excess ABG Hemoglobin Oxyhemoglobin Sodium Potassium Chloride Carbon Dioxide BUN Creatinine Glucose POC Glucose 136 H 131 H Lactic Acid Calcium Magnesium Iron TIBC Ferritin AST ALT Lactate Dehydrogenase Troponin T C-Reactive Protein Total Protein Albumin Prealbumin Cholesterol LDL Cholesterol Direct HDL Cholesterol Urine WBC (Auto) Vancomycin Trough Coronavirus (PCR) Crossmatch 07/15/19 07/15/19 07/15/19 00:17 04:35 05:18 WBC 20.6 H RBC 2.41 L Hgb 6.8 L Hct 20.7 L MCV MCH MCHC RDW 20.2 H Plt Count Lymph % (Auto) [place] % (Auto) Lymph # [place] # Baso # Seg Neutrophils % Seg Neuts % (Manual) 92.0 H Lymphocytes % (Manual) 5.0 L Monocytes % (Manual) Nucleated RBC % Seg Neutrophils # Seg Neutrophils # Man 19.0 H Lymphocytes # (Manual) 1.0 L Monocytes # (Manual) Basophils # (Manual) PT INR D-Dimer ABG pH 7.342 L ABG pO2 ABG HCO3 ABG O2 Saturation ABG Base Excess -3.1 L ABG Hemoglobin 7.2 L Oxyhemoglobin 94.9 L Sodium Potassium Chloride Carbon Dioxide BUN Creatinine Glucose POC Glucose 116 H Lactic Acid Calcium Magnesium Iron TIBC Ferritin AST ALT Lactate Dehydrogenase Troponin T C-Reactive Protein Total Protein Albumin Prealbumin Cholesterol LDL Cholesterol Direct HDL Cholesterol Urine WBC (Auto) Vancomycin Trough Coronavirus (PCR) Crossmatch 07/15/19 07/15/19 07/15/19 05:18 05:57 11:28 WBC RBC Hgb Hct MCV MCH MCHC RDW Plt Count Lymph % (Auto) [place] % (Auto) Lymph # [place] # Baso # Seg Neutrophils % Seg Neuts % (Manual) Lymphocytes % (Manual) Monocytes % (Manual) Nucleated RBC % Seg Neutrophils # Seg Neutrophils # Man Lymphocytes # (Manual) Monocytes # (Manual) Basophils # (Manual) PT INR D-Dimer ABG pH ABG pO2 ABG HCO3 ABG O2 Saturation ABG Base Excess ABG Hemoglobin Oxyhemoglobin Sodium Potassium Chloride Carbon Dioxide 20 L BUN 59 H Creatinine Glucose 140 H POC Glucose 139 H 117 H Lactic Acid Calcium Magnesium Iron TIBC Ferritin AST ALT Lactate Dehydrogenase Troponin T C-Reactive Protein Total Protein Albumin Prealbumin Cholesterol LDL Cholesterol Direct HDL Cholesterol Urine WBC (Auto) Vancomycin Trough Coronavirus (PCR) Crossmatch 07/15/19 07/16/19 07/16/19 18:13 00:06 03:43 WBC RBC Hgb Hct MCV MCH MCHC RDW Plt Count Lymph % (Auto) [place] % (Auto) Lymph # [place] # Baso # Seg Neutrophils % Seg Neuts % (Manual) Lymphocytes % (Manual) Monocytes % (Manual) Nucleated RBC % Seg Neutrophils # Seg Neutrophils # Man Lymphocytes # (Manual) Monocytes # (Manual) Basophils # (Manual) PT INR D-Dimer ABG pH 7.344 L ABG pO2 68.6 L ABG HCO3 ABG O2 Saturation ABG Base Excess -3.5 L ABG Hemoglobin 6.1 L Oxyhemoglobin 93.3 L Sodium Potassium Chloride Carbon Dioxide BUN Creatinine Glucose POC Glucose 114 H 119 H Lactic Acid Calcium Magnesium Iron TIBC Ferritin AST ALT Lactate Dehydrogenase Troponin T C-Reactive Protein Total Protein Albumin Prealbumin Cholesterol LDL Cholesterol Direct HDL Cholesterol Urine WBC (Auto) Vancomycin Trough Coronavirus (PCR) Crossmatch 07/16/19 07/16/19 07/16/19 04:41 04:41 12:09 WBC 19.6 H RBC 2.81 L Hgb 7.7 L Hct 24.0 L MCV MCH 27 L MCHC RDW 19.4 H Plt Count 514 H Lymph % (Auto) 6.7 L [place] % (Auto) Lymph # [place] # 1.0 H Baso # Seg Neutrophils % 87.0 H Seg Neuts % (Manual) Lymphocytes % (Manual) Monocytes % (Manual) Nucleated RBC % Seg Neutrophils # 17.0 H Seg Neutrophils # Man Lymphocytes # (Manual) Monocytes # (Manual) Basophils # (Manual) PT INR D-Dimer ABG pH ABG pO2 ABG HCO3 ABG O2 Saturation ABG Base Excess ABG Hemoglobin Oxyhemoglobin Sodium Potassium 5.9 H Chloride Carbon Dioxide 21 L BUN 73 H Creatinine 2.0 H Glucose POC Glucose 141 H Lactic Acid Calcium Magnesium Iron TIBC Ferritin AST ALT Lactate Dehydrogenase Troponin T C-Reactive Protein Total Protein Albumin Prealbumin Cholesterol LDL Cholesterol Direct HDL Cholesterol Urine WBC (Auto) Vancomycin Trough Coronavirus (PCR) Crossmatch 07/16/19 07/16/19 07/17/19 16:19 17:45 00:16 WBC RBC Hgb Hct MCV MCH MCHC RDW Plt Count Lymph % (Auto) [place] % (Auto) Lymph # [place] # Baso # Seg Neutrophils % Seg Neuts % (Manual) Lymphocytes % (Manual) Monocytes % (Manual) Nucleated RBC % Seg Neutrophils # Seg Neutrophils # Man Lymphocytes # (Manual) Monocytes # (Manual) Basophils # (Manual) PT INR D-Dimer ABG pH ABG pO2 ABG HCO3 ABG O2 Saturation ABG Base Excess ABG Hemoglobin Oxyhemoglobin Sodium Potassium 5.1 H Chloride Carbon Dioxide 20 L BUN 72 H Creatinine 1.7 H Glucose 128 H POC Glucose 181 H 164 H Lactic Acid Calcium Magnesium Iron TIBC Ferritin AST ALT Lactate Dehydrogenase Troponin T C-Reactive Protein Total Protein Albumin Prealbumin Cholesterol LDL Cholesterol Direct HDL Cholesterol Urine WBC (Auto) Vancomycin Trough Coronavirus (PCR) Crossmatch 07/17/19 07/17/19 07/17/19 04:20 04:39 04:39 WBC 16.1 H RBC 2.92 L Hgb 8.0 L Hct 25.5 L MCV MCH MCHC 31 L RDW 19.7 H Plt Count 564 H Lymph % (Auto) 3.6 L [place] % (Auto) 7.4 H Lymph # 0.6 L [place] # 1.2 H Baso # Seg Neutrophils % 87.5 H Seg Neuts % (Manual) Lymphocytes % (Manual) Monocytes % (Manual) Nucleated RBC % Seg Neutrophils # 14.1 H Seg Neutrophils # Man Lymphocytes # (Manual) Monocytes # (Manual) Basophils # (Manual) PT INR D-Dimer ABG pH 7.231 L ABG pO2 95.3 H ABG HCO3 ABG O2 Saturation ABG Base Excess -5.0 L ABG Hemoglobin 7.9 L Oxyhemoglobin 94.8 L Sodium Potassium Chloride 107.8 H Carbon Dioxide 21 L BUN 68 H Creatinine Glucose POC Glucose Lactic Acid Calcium Magnesium Iron TIBC Ferritin AST ALT Lactate Dehydrogenase Troponin T C-Reactive Protein Total Protein Albumin Prealbumin Cholesterol LDL Cholesterol Direct HDL Cholesterol Urine WBC (Auto) Vancomycin Trough Coronavirus (PCR) Crossmatch 07/17/19 07/17/19 07/17/19 05:28 12:11 18:48 WBC RBC Hgb Hct MCV MCH MCHC RDW Plt Count Lymph % (Auto) [place] % (Auto) Lymph # [place] # Baso # Seg Neutrophils % Seg Neuts % (Manual) Lymphocytes % (Manual) Monocytes % (Manual) Nucleated RBC % Seg Neutrophils # Seg Neutrophils # Man Lymphocytes # (Manual) Monocytes # (Manual) Basophils # (Manual) PT INR D-Dimer ABG pH ABG pO2 ABG HCO3 ABG O2 Saturation ABG Base Excess ABG Hemoglobin Oxyhemoglobin Sodium Potassium Chloride Carbon Dioxide BUN Creatinine Glucose POC Glucose 121 H 125 H 174 H Lactic Acid Calcium Magnesium Iron TIBC Ferritin AST ALT Lactate Dehydrogenase Troponin T C-Reactive Protein Total Protein Albumin Prealbumin Cholesterol LDL Cholesterol Direct HDL Cholesterol Urine WBC (Auto) Vancomycin Trough Coronavirus (PCR) Crossmatch 07/17/19 07/17/19 07/18/19 19:55 23:57 02:30 WBC RBC Hgb Hct MCV MCH MCHC RDW Plt Count Lymph % (Auto) [place] % (Auto) Lymph # [place] # Baso # Seg Neutrophils % Seg Neuts % (Manual) Lymphocytes % (Manual) Monocytes % (Manual) Nucleated RBC % Seg Neutrophils # Seg Neutrophils # Man Lymphocytes # (Manual) Monocytes # (Manual) Basophils # (Manual) PT INR D-Dimer ABG pH 7.344 L 7.294 L ABG pO2 78.5 L 119.2 H ABG HCO3 ABG O2 Saturation ABG Base Excess -3.3 L -2.6 L ABG Hemoglobin 8.6 L 8.1 L Oxyhemoglobin 94.8 L Sodium Potassium Chloride Carbon Dioxide BUN Creatinine Glucose POC Glucose 148 H Lactic Acid Calcium Magnesium Iron TIBC Ferritin AST ALT Lactate Dehydrogenase Troponin T C-Reactive Protein Total Protein Albumin Prealbumin Cholesterol LDL Cholesterol Direct HDL Cholesterol Urine WBC (Auto) Vancomycin Trough Coronavirus (PCR) Crossmatch 07/18/19 07/18/19 07/18/19 04:49 05:22 05:22 WBC 15.9 H RBC 3.00 L Hgb 8.1 L Hct 26.0 L MCV MCH 27 L MCHC 31 L RDW 19.4 H Plt Count 733 H Lymph % (Auto) 6.3 L [place] % (Auto) 7.4 H Lymph # 1.0 L [place] # 1.2 H Baso # 0.2 H Seg Neutrophils % 83.8 H Seg Neuts % (Manual) Lymphocytes % (Manual) Monocytes % (Manual) Nucleated RBC % Seg Neutrophils # 13.3 H Seg Neutrophils # Man Lymphocytes # (Manual) Monocytes # (Manual) Basophils # (Manual) PT INR D-Dimer ABG pH ABG pO2 ABG HCO3 ABG O2 Saturation ABG Base Excess ABG Hemoglobin Oxyhemoglobin Sodium Potassium Chloride 110.6 H Carbon Dioxide BUN 61 H Creatinine Glucose 109 H POC Glucose 116 H Lactic Acid Calcium Magnesium Iron TIBC Ferritin AST ALT Lactate Dehydrogenase Troponin T C-Reactive Protein Total Protein Albumin Prealbumin Cholesterol LDL Cholesterol Direct HDL Cholesterol Urine WBC (Auto) Vancomycin Trough Coronavirus (PCR) Crossmatch 07/18/19 07/18/19 07/18/19 12:23 18:06 22:20 WBC RBC Hgb Hct MCV MCH MCHC RDW Plt Count Lymph % (Auto) [place] % (Auto) Lymph # [place] # Baso # Seg Neutrophils % Seg Neuts % (Manual) Lymphocytes % (Manual) Monocytes % (Manual) Nucleated RBC % Seg Neutrophils # Seg Neutrophils # Man Lymphocytes # (Manual) Monocytes # (Manual) Basophils # (Manual) PT INR D-Dimer ABG pH 7.338 L ABG pO2 135.1 H ABG HCO3 ABG O2 Saturation ABG Base Excess ABG Hemoglobin 9.2 L Oxyhemoglobin Sodium Potassium Chloride Carbon Dioxide BUN Creatinine Glucose POC Glucose 114 H 113 H Lactic Acid Calcium Magnesium Iron TIBC Ferritin AST ALT Lactate Dehydrogenase Troponin T C-Reactive Protein Total Protein Albumin Prealbumin Cholesterol LDL Cholesterol Direct HDL Cholesterol Urine WBC (Auto) Vancomycin Trough Coronavirus (PCR) Crossmatch 07/18/19 07/19/19 07/19/19 23:33 03:45 05:18 WBC RBC Hgb Hct MCV MCH MCHC RDW Plt Count Lymph % (Auto) [place] % (Auto) Lymph # [place] # Baso # Seg Neutrophils % Seg Neuts % (Manual) Lymphocytes % (Manual) Monocytes % (Manual) Nucleated RBC % Seg Neutrophils # Seg Neutrophils # Man Lymphocytes # (Manual) Monocytes # (Manual) Basophils # (Manual) PT INR D-Dimer ABG pH 7.342 L ABG pO2 95.0 H ABG HCO3 ABG O2 Saturation ABG Base Excess ABG Hemoglobin 8.5 L Oxyhemoglobin Sodium Potassium Chloride Carbon Dioxide BUN Creatinine Glucose POC Glucose 125 H 111 H Lactic Acid Calcium Magnesium Iron TIBC Ferritin AST ALT Lactate Dehydrogenase Troponin T C-Reactive Protein Total Protein Albumin Prealbumin Cholesterol LDL Cholesterol Direct HDL Cholesterol Urine WBC (Auto) Vancomycin Trough Coronavirus (PCR) Crossmatch 07/19/19 07/19/19 07/19/19 08:45 08:45 11:47 WBC 15.9 H RBC 3.31 L Hgb 9.1 L Hct 28.4 L MCV MCH 27 L MCHC RDW 19.1 H Plt Count 858 H Lymph % (Auto) 4.9 L [place] % (Auto) 8.1 H Lymph # 0.8 L [place] # 1.3 H Baso # Seg Neutrophils % 85.5 H Seg Neuts % (Manual) Lymphocytes % (Manual) Monocytes % (Manual) Nucleated RBC % Seg Neutrophils # 13.6 H Seg Neutrophils # Man Lymphocytes # (Manual) Monocytes # (Manual) Basophils # (Manual) PT INR D-Dimer ABG pH ABG pO2 ABG HCO3 ABG O2 Saturation ABG Base Excess ABG Hemoglobin Oxyhemoglobin Sodium Potassium Chloride 111.6 H Carbon Dioxide BUN 50 H Creatinine 0.7 L Glucose 118 H POC Glucose 114 H Lactic Acid Calcium Magnesium Iron TIBC Ferritin AST ALT Lactate Dehydrogenase Troponin T C-Reactive Protein Total Protein Albumin Prealbumin Cholesterol LDL Cholesterol Direct HDL Cholesterol Urine WBC (Auto) Vancomycin Trough Coronavirus (PCR) Crossmatch 07/19/19 07/19/19 07/20/19 18:25 23:44 04:39 WBC RBC Hgb Hct MCV MCH MCHC RDW Plt Count Lymph % (Auto) [place] % (Auto) Lymph # [place] # Baso # Seg Neutrophils % Seg Neuts % (Manual) Lymphocytes % (Manual) Monocytes % (Manual) Nucleated RBC % Seg Neutrophils # Seg Neutrophils # Man Lymphocytes # (Manual) Monocytes # (Manual) Basophils # (Manual) PT INR D-Dimer ABG pH ABG pO2 ABG HCO3 ABG O2 Saturation ABG Base Excess ABG Hemoglobin Oxyhemoglobin Sodium Potassium Chloride 110.3 H Carbon Dioxide BUN 44 H Creatinine 0.6 L Glucose 120 H POC Glucose 115 H 117 H Lactic Acid Calcium Magnesium Iron TIBC Ferritin AST ALT Lactate Dehydrogenase Troponin T C-Reactive Protein Total Protein Albumin Prealbumin Cholesterol LDL Cholesterol Direct HDL Cholesterol Urine WBC (Auto) Vancomycin Trough Coronavirus (PCR) Crossmatch 07/20/19 07/21/19 07/21/19 05:30 11:59 17:40 WBC RBC Hgb Hct MCV MCH MCHC RDW Plt Count Lymph % (Auto) [place] % (Auto) Lymph # [place] # Baso # Seg Neutrophils % Seg Neuts % (Manual) Lymphocytes % (Manual) Monocytes % (Manual) Nucleated RBC % Seg Neutrophils # Seg Neutrophils # Man Lymphocytes # (Manual) Monocytes # (Manual) Basophils # (Manual) PT INR D-Dimer ABG pH ABG pO2 ABG HCO3 ABG O2 Saturation ABG Base Excess ABG Hemoglobin Oxyhemoglobin Sodium Potassium Chloride Carbon Dioxide BUN Creatinine Glucose POC Glucose 131 H 122 H 125 H Lactic Acid Calcium Magnesium Iron TIBC Ferritin AST ALT Lactate Dehydrogenase Troponin T C-Reactive Protein Total Protein Albumin Prealbumin Cholesterol LDL Cholesterol Direct HDL Cholesterol Urine WBC (Auto) Vancomycin Trough Coronavirus (PCR) Crossmatch 07/22/19 07/22/19 07/22/19 05:38 05:38 12:29 WBC 12.6 H RBC 3.19 L Hgb 8.9 L Hct 27.5 L MCV MCH MCHC RDW 18.9 H Plt Count 1101 H* Lymph % (Auto) [place] % (Auto) 12.2 H Lymph # [place] # 1.5 H Baso # Seg Neutrophils % 72.8 H Seg Neuts % (Manual) 76.0 H Lymphocytes % (Manual) 7.0 L Monocytes % (Manual) 14.0 H Nucleated RBC % 1.0 H Seg Neutrophils # 9.2 H Seg Neutrophils # Man 9.6 H Lymphocytes # (Manual) 0.9 L Monocytes # (Manual) 1.8 H Basophils # (Manual) PT INR D-Dimer ABG pH ABG pO2 ABG HCO3 ABG O2 Saturation ABG Base Excess ABG Hemoglobin Oxyhemoglobin Sodium Potassium 3.4 L Chloride Carbon Dioxide BUN 29 H Creatinine 0.5 L Glucose POC Glucose 116 H Lactic Acid Calcium Magnesium Iron TIBC Ferritin AST ALT Lactate Dehydrogenase Troponin T C-Reactive Protein Total Protein Albumin Prealbumin Cholesterol LDL Cholesterol Direct HDL Cholesterol Urine WBC (Auto) Vancomycin Trough Coronavirus (PCR) Crossmatch 07/22/19 07/22/19 07/23/19 18:20 23:51 04:52 WBC RBC Hgb Hct MCV MCH MCHC RDW Plt Count Lymph % (Auto) [place] % (Auto) Lymph # [place] # Baso # Seg Neutrophils % Seg Neuts % (Manual) Lymphocytes % (Manual) Monocytes % (Manual) Nucleated RBC % Seg Neutrophils # Seg Neutrophils # Man Lymphocytes # (Manual) Monocytes # (Manual) Basophils # (Manual) PT INR D-Dimer ABG pH ABG pO2 ABG HCO3 ABG O2 Saturation ABG Base Excess ABG Hemoglobin Oxyhemoglobin Sodium Potassium Chloride Carbon Dioxide BUN 24 H Creatinine 0.4 L Glucose POC Glucose 107 H 110 H Lactic Acid Calcium Magnesium Iron TIBC Ferritin AST ALT Lactate Dehydrogenase Troponin T C-Reactive Protein Total Protein Albumin Prealbumin Cholesterol LDL Cholesterol Direct HDL Cholesterol Urine WBC (Auto) Vancomycin Trough Coronavirus (PCR) Crossmatch 07/23/19 07/23/19 07/24/19 06:00 23:15 04:40 WBC RBC Hgb Hct MCV MCH MCHC RDW Plt Count Lymph % (Auto) [place] % (Auto) Lymph # [place] # Baso # Seg Neutrophils % Seg Neuts % (Manual) Lymphocytes % (Manual) Monocytes % (Manual) Nucleated RBC % Seg Neutrophils # Seg Neutrophils # Man Lymphocytes # (Manual) Monocytes # (Manual) Basophils # (Manual) PT INR D-Dimer ABG pH ABG pO2 73.5 L ABG HCO3 27.0 H 28.5 H ABG O2 Saturation 94.5 L ABG Base Excess ABG Hemoglobin 9.4 L 8.9 L Oxyhemoglobin 94.0 L 92.7 L Sodium Potassium Chloride Carbon Dioxide BUN Creatinine Glucose POC Glucose 117 H Lactic Acid Calcium Magnesium Iron TIBC Ferritin AST ALT Lactate Dehydrogenase Troponin T C-Reactive Protein Total Protein Albumin Prealbumin Cholesterol LDL Cholesterol Direct HDL Cholesterol Urine WBC (Auto) Vancomycin Trough Coronavirus (PCR) Crossmatch 07/24/19 07/24/19 07/25/19 05:25 12:06 00:16 WBC RBC Hgb Hct MCV MCH MCHC RDW Plt Count Lymph % (Auto) [place] % (Auto) Lymph # [place] # Baso # Seg Neutrophils % Seg Neuts % (Manual) Lymphocytes % (Manual) Monocytes % (Manual) Nucleated RBC % Seg Neutrophils # Seg Neutrophils # Man Lymphocytes # (Manual) Monocytes # (Manual) Basophils # (Manual) PT INR D-Dimer ABG pH ABG pO2 ABG HCO3 ABG O2 Saturation ABG Base Excess ABG Hemoglobin Oxyhemoglobin Sodium Potassium Chloride Carbon Dioxide BUN Creatinine Glucose POC Glucose 114 H 108 H 106 H Lactic Acid Calcium Magnesium Iron TIBC Ferritin AST ALT Lactate Dehydrogenase Troponin T C-Reactive Protein Total Protein Albumin Prealbumin Cholesterol LDL Cholesterol Direct HDL Cholesterol Urine WBC (Auto) Vancomycin Trough Coronavirus (PCR) Crossmatch 07/25/19 07/25/19 07/25/19 05:14 05:14 05:17 WBC 17.8 H RBC 3.32 L Hgb 9.2 L Hct 28.6 L MCV MCH MCHC RDW 19.9 H Plt Count 994 H Lymph % (Auto) [place] % (Auto) Lymph # [place] # Baso # Seg Neutrophils % Seg Neuts % (Manual) 82.0 H Lymphocytes % (Manual) 5.0 L Monocytes % (Manual) Nucleated RBC % Seg Neutrophils # Seg Neutrophils # Man 14.6 H Lymphocytes # (Manual) 0.9 L Monocytes # (Manual) 1.2 H Basophils # (Manual) PT INR D-Dimer ABG pH ABG pO2 ABG HCO3 ABG O2 Saturation ABG Base Excess ABG Hemoglobin Oxyhemoglobin Sodium Potassium Chloride Carbon Dioxide BUN Creatinine 0.4 L Glucose 110 H POC Glucose 107 H Lactic Acid Calcium Magnesium Iron TIBC Ferritin AST ALT Lactate Dehydrogenase Troponin T C-Reactive Protein Total Protein Albumin Prealbumin Cholesterol LDL Cholesterol Direct HDL Cholesterol Urine WBC (Auto) Vancomycin Trough Coronavirus (PCR) Crossmatch 07/25/19 07/25/19 07/26/19 11:55 23:49 06:01 WBC RBC Hgb Hct MCV MCH MCHC RDW Plt Count Lymph % (Auto) [place] % (Auto) Lymph # [place] # Baso # Seg Neutrophils % Seg Neuts % (Manual) Lymphocytes % (Manual) Monocytes % (Manual) Nucleated RBC % Seg Neutrophils # Seg Neutrophils # Man Lymphocytes # (Manual) Monocytes # (Manual) Basophils # (Manual) PT INR D-Dimer ABG pH ABG pO2 ABG HCO3 ABG O2 Saturation ABG Base Excess ABG Hemoglobin Oxyhemoglobin Sodium Potassium Chloride Carbon Dioxide BUN Creatinine Glucose POC Glucose 123 H 118 H 106 H Lactic Acid Calcium Magnesium Iron TIBC Ferritin AST ALT Lactate Dehydrogenase Troponin T C-Reactive Protein Total Protein Albumin Prealbumin Cholesterol LDL Cholesterol Direct HDL Cholesterol Urine WBC (Auto) Vancomycin Trough Coronavirus (PCR) Crossmatch 07/26/19 07/27/19 07/27/19 17:02 00:28 05:16 WBC RBC Hgb Hct MCV MCH MCHC RDW Plt Count Lymph % (Auto) [place] % (Auto) Lymph # [place] # Baso # Seg Neutrophils % Seg Neuts % (Manual) Lymphocytes % (Manual) Monocytes % (Manual) Nucleated RBC % Seg Neutrophils # Seg Neutrophils # Man Lymphocytes # (Manual) Monocytes # (Manual) Basophils # (Manual) PT INR D-Dimer ABG pH ABG pO2 63.4 L ABG HCO3 31.3 H ABG O2 Saturation 92.7 L ABG Base Excess 6.3 H ABG Hemoglobin 7.6 L Oxyhemoglobin 90.9 L Sodium Potassium Chloride Carbon Dioxide BUN Creatinine Glucose POC Glucose 116 H 158 H Lactic Acid Calcium Magnesium Iron TIBC Ferritin AST ALT Lactate Dehydrogenase Troponin T C-Reactive Protein Total Protein Albumin Prealbumin Cholesterol LDL Cholesterol Direct HDL Cholesterol Urine WBC (Auto) Vancomycin Trough Coronavirus (PCR) Crossmatch 07/28/19 07/28/19 07/28/19 10:13 10:13 23:54 WBC 18.5 H RBC 3.20 L Hgb 8.8 L Hct 26.8 L MCV MCH 27 L MCHC RDW 19.9 H Plt Count 730 H Lymph % (Auto) [place] % (Auto) Lymph # [place] # Baso # Seg Neutrophils % Seg Neuts % (Manual) Lymphocytes % (Manual) Monocytes % (Manual) Nucleated RBC % Seg Neutrophils # Seg Neutrophils # Man Lymphocytes # (Manual) Monocytes # (Manual) Basophils # (Manual) PT INR D-Dimer ABG pH ABG pO2 ABG HCO3 ABG O2 Saturation ABG Base Excess ABG Hemoglobin Oxyhemoglobin Sodium Potassium 3.2 L Chloride 97.5 L Carbon Dioxide 31 H BUN Creatinine 0.5 L Glucose POC Glucose 120 H Lactic Acid Calcium Magnesium Iron TIBC Ferritin AST ALT Lactate Dehydrogenase Troponin T C-Reactive Protein Total Protein Albumin Prealbumin Cholesterol LDL Cholesterol Direct HDL Cholesterol Urine WBC (Auto) Vancomycin Trough Coronavirus (PCR) Crossmatch 07/29/19 07/29/19 07/29/19 11:57 17:43 Unknown WBC RBC Hgb Hct MCV MCH MCHC RDW Plt Count Lymph % (Auto) [place] % (Auto) Lymph # [place] # Baso # Seg Neutrophils % Seg Neuts % (Manual) Lymphocytes % (Manual) Monocytes % (Manual) Nucleated RBC % Seg Neutrophils # Seg Neutrophils # Man Lymphocytes # (Manual) Monocytes # (Manual) Basophils # (Manual) PT INR D-Dimer ABG pH ABG pO2 ABG HCO3 ABG O2 Saturation ABG Base Excess ABG Hemoglobin Oxyhemoglobin Sodium Potassium Chloride Carbon Dioxide BUN Creatinine Glucose POC Glucose 112 H Lactic Acid Calcium Magnesium Iron TIBC Ferritin AST ALT Lactate Dehydrogenase Troponin T C-Reactive Protein Total Protein Albumin Prealbumin Cholesterol LDL Cholesterol Direct HDL Cholesterol Urine WBC (Auto) 63.0 H Vancomycin Trough Coronavirus (PCR) Positive A Crossmatch 07/30/19 07/30/19 07/30/19 00:20 04:35 04:35 WBC 24.3 H RBC 3.12 L Hgb 8.5 L Hct 26.3 L MCV MCH 27 L MCHC RDW 20.2 H Plt Count 550 H Lymph % (Auto) [place] % (Auto) Lymph # [place] # Baso # Seg Neutrophils % Seg Neuts % (Manual) Lymphocytes % (Manual) Monocytes % (Manual) Nucleated RBC % Seg Neutrophils # Seg Neutrophils # Man Lymphocytes # (Manual) Monocytes # (Manual) Basophils # (Manual) PT INR D-Dimer ABG pH ABG pO2 ABG HCO3 ABG O2 Saturation ABG Base Excess ABG Hemoglobin Oxyhemoglobin Sodium Potassium 3.0 L Chloride 96.3 L Carbon Dioxide 32 H BUN Creatinine 0.5 L Glucose POC Glucose 106 H Lactic Acid Calcium Magnesium Iron TIBC Ferritin AST ALT Lactate Dehydrogenase Troponin T C-Reactive Protein Total Protein Albumin Prealbumin Cholesterol LDL Cholesterol Direct HDL Cholesterol Urine WBC (Auto) Vancomycin Trough Coronavirus (PCR) Crossmatch 07/31/19 07/31/19 07/31/19 04:42 04:42 11:33 WBC 23.8 H RBC 3.10 L Hgb 8.4 L Hct 26.1 L MCV MCH 27 L MCHC RDW 19.6 H Plt Count 561 H Lymph % (Auto) [place] % (Auto) Lymph # [place] # Baso # Seg Neutrophils % Seg Neuts % (Manual) Lymphocytes % (Manual) Monocytes % (Manual) Nucleated RBC % Seg Neutrophils # Seg Neutrophils # Man Lymphocytes # (Manual) Monocytes # (Manual) Basophils # (Manual) PT INR D-Dimer ABG pH ABG pO2 ABG HCO3 ABG O2 Saturation ABG Base Excess ABG Hemoglobin Oxyhemoglobin Sodium 135 L Potassium Chloride 93.9 L Carbon Dioxide 32 H BUN Creatinine 0.4 L Glucose POC Glucose 116 H Lactic Acid Calcium Magnesium Iron TIBC Ferritin AST ALT Lactate Dehydrogenase Troponin T C-Reactive Protein Total Protein Albumin 1.6 L Prealbumin 0.037 L Cholesterol LDL Cholesterol Direct HDL Cholesterol Urine WBC (Auto) Vancomycin Trough Coronavirus (PCR) Crossmatch 07/31/19 08/01/19 08/01/19 23:33 04:57 04:57 WBC 26.7 H RBC 3.12 L Hgb 8.5 L Hct 26.3 L MCV MCH 27 L MCHC RDW 19.2 H Plt Count 602 H Lymph % (Auto) [place] % (Auto) Lymph # [place] # Baso # Seg Neutrophils % Seg Neuts % (Manual) 93.0 H Lymphocytes % (Manual) 2.0 L Monocytes % (Manual) Nucleated RBC % Seg Neutrophils # Seg Neutrophils # Man 24.8 H Lymphocytes # (Manual) 0.5 L Monocytes # (Manual) 1.1 H Basophils # (Manual) PT INR D-Dimer ABG pH ABG pO2 ABG HCO3 ABG O2 Saturation ABG Base Excess ABG Hemoglobin Oxyhemoglobin Sodium 132 L Potassium Chloride 93.8 L Carbon Dioxide 31 H BUN Creatinine 0.3 L Glucose POC Glucose 148 H Lactic Acid Calcium 8.1 L Magnesium Iron TIBC Ferritin AST ALT Lactate Dehydrogenase Troponin T C-Reactive Protein Total Protein Albumin Prealbumin Cholesterol LDL Cholesterol Direct HDL Cholesterol Urine WBC (Auto) Vancomycin Trough Coronavirus (PCR) Crossmatch 08/01/19 08/02/19 08/02/19 12:16 00:22 05:24 WBC RBC Hgb Hct MCV MCH MCHC RDW Plt Count Lymph % (Auto) [place] % (Auto) Lymph # [place] # Baso # Seg Neutrophils % Seg Neuts % (Manual) Lymphocytes % (Manual) Monocytes % (Manual) Nucleated RBC % Seg Neutrophils # Seg Neutrophils # Man Lymphocytes # (Manual) Monocytes # (Manual) Basophils # (Manual) PT INR D-Dimer ABG pH ABG pO2 ABG HCO3 ABG O2 Saturation ABG Base Excess ABG Hemoglobin Oxyhemoglobin Sodium Potassium Chloride Carbon Dioxide BUN Creatinine Glucose POC Glucose 120 H 119 H 113 H Lactic Acid Calcium Magnesium Iron TIBC Ferritin AST ALT Lactate Dehydrogenase Troponin T C-Reactive Protein Total Protein Albumin Prealbumin Cholesterol LDL Cholesterol Direct HDL Cholesterol Urine WBC (Auto) Vancomycin Trough Coronavirus (PCR) Crossmatch 08/03/19 08/03/19 08/03/19 05:20 12:01 23:48 WBC RBC Hgb Hct MCV MCH MCHC RDW Plt Count Lymph % (Auto) [place] % (Auto) Lymph # [place] # Baso # Seg Neutrophils % Seg Neuts % (Manual) Lymphocytes % (Manual) Monocytes % (Manual) Nucleated RBC % Seg Neutrophils # Seg Neutrophils # Man Lymphocytes # (Manual) Monocytes # (Manual) Basophils # (Manual) PT INR D-Dimer ABG pH ABG pO2 ABG HCO3 ABG O2 Saturation ABG Base Excess ABG Hemoglobin Oxyhemoglobin Sodium Potassium Chloride Carbon Dioxide BUN Creatinine Glucose POC Glucose 118 H 106 H 120 H Lactic Acid Calcium Magnesium Iron TIBC Ferritin AST ALT Lactate Dehydrogenase Troponin T C-Reactive Protein Total Protein Albumin Prealbumin Cholesterol LDL Cholesterol Direct HDL Cholesterol Urine WBC (Auto) Vancomycin Trough Coronavirus (PCR) Crossmatch 08/04/19 08/04/19 08/04/19 05:38 05:38 06:29 WBC 26.1 H RBC 2.77 L Hgb 7.5 L Hct 23.2 L MCV MCH 27 L MCHC RDW 19.2 H Plt Count 648 H Lymph % (Auto) [place] % (Auto) Lymph # [place] # Baso # Seg Neutrophils % Seg Neuts % (Manual) 90.5 H Lymphocytes % (Manual) 3.5 L Monocytes % (Manual) Nucleated RBC % Seg Neutrophils # Seg Neutrophils # Man 23.6 H Lymphocytes # (Manual) 0.9 L Monocytes # (Manual) 1.2 H Basophils # (Manual) PT INR D-Dimer ABG pH ABG pO2 ABG HCO3 ABG O2 Saturation ABG Base Excess ABG Hemoglobin Oxyhemoglobin Sodium 132 L Potassium 3.4 L D Chloride 92.7 L Carbon Dioxide 33 H BUN Creatinine 0.2 L Glucose POC Glucose 108 H Lactic Acid Calcium 8.1 L Magnesium Iron TIBC Ferritin AST ALT Lactate Dehydrogenase Troponin T C-Reactive Protein Total Protein Albumin Prealbumin Cholesterol LDL Cholesterol Direct HDL Cholesterol Urine WBC (Auto) Vancomycin Trough Coronavirus (PCR) Crossmatch 08/04/19 08/05/19 08/05/19 12:30 04:58 04:58 WBC 21.0 H RBC 2.63 L Hgb 7.2 L Hct 21.9 L MCV 83 L MCH 27 L MCHC RDW 18.9 H Plt Count 691 H Lymph % (Auto) [place] % (Auto) Lymph # [place] # Baso # Seg Neutrophils % Seg Neuts % (Manual) 86.0 H Lymphocytes % (Manual) 3.0 L Monocytes % (Manual) 10.0 H Nucleated RBC % Seg Neutrophils # Seg Neutrophils # Man 18.1 H Lymphocytes # (Manual) 0.6 L Monocytes # (Manual) 2.1 H Basophils # (Manual) PT INR D-Dimer ABG pH ABG pO2 ABG HCO3 ABG O2 Saturation ABG Base Excess ABG Hemoglobin Oxyhemoglobin Sodium 134 L Potassium 3.2 L Chloride 93.2 L Carbon Dioxide 34 H BUN 8 L Creatinine 0.3 L Glucose POC Glucose 138 H Lactic Acid Calcium 8.1 L Magnesium Iron TIBC Ferritin AST ALT Lactate Dehydrogenase Troponin T C-Reactive Protein Total Protein Albumin Prealbumin Cholesterol LDL Cholesterol Direct HDL Cholesterol Urine WBC (Auto) Vancomycin Trough Coronavirus (PCR) Crossmatch 08/05/19 08/05/19 08/05/19 11:53 17:57 23:58 WBC RBC Hgb Hct MCV MCH MCHC RDW Plt Count Lymph % (Auto) [place] % (Auto) Lymph # [place] # Baso # Seg Neutrophils % Seg Neuts % (Manual) Lymphocytes % (Manual) Monocytes % (Manual) Nucleated RBC % Seg Neutrophils # Seg Neutrophils # Man Lymphocytes # (Manual) Monocytes # (Manual) Basophils # (Manual) PT INR D-Dimer ABG pH ABG pO2 ABG HCO3 ABG O2 Saturation ABG Base Excess ABG Hemoglobin Oxyhemoglobin Sodium Potassium Chloride Carbon Dioxide BUN Creatinine Glucose POC Glucose 106 H 111 H 116 H Lactic Acid Calcium Magnesium Iron TIBC Ferritin AST ALT Lactate Dehydrogenase Troponin T C-Reactive Protein Total Protein Albumin Prealbumin Cholesterol LDL Cholesterol Direct HDL Cholesterol Urine WBC (Auto) Vancomycin Trough Coronavirus (PCR) Crossmatch 08/06/19 08/06/19 08/06/19 04:11 04:11 06:04 WBC 20.8 H RBC 2.80 L Hgb 7.6 L Hct 23.5 L MCV MCH 27 L MCHC RDW 19.0 H Plt Count 723 H Lymph % (Auto) [place] % (Auto) Lymph # [place] # Baso # Seg Neutrophils % Seg Neuts % (Manual) 88.0 H Lymphocytes % (Manual) 3.0 L Monocytes % (Manual) Nucleated RBC % Seg Neutrophils # Seg Neutrophils # Man 18.3 H Lymphocytes # (Manual) 0.6 L Monocytes # (Manual) Basophils # (Manual) 0.2 H PT INR D-Dimer ABG pH ABG pO2 ABG HCO3 ABG O2 Saturation ABG Base Excess ABG Hemoglobin Oxyhemoglobin Sodium Potassium 3.4 L Chloride 95.2 L Carbon Dioxide 32 H BUN Creatinine 0.3 L Glucose POC Glucose 108 H Lactic Acid Calcium 8.2 L Magnesium Iron TIBC Ferritin AST ALT Lactate Dehydrogenase Troponin T C-Reactive Protein Total Protein Albumin Prealbumin Cholesterol LDL Cholesterol Direct HDL Cholesterol Urine WBC (Auto) Vancomycin Trough Coronavirus (PCR) Crossmatch 08/06/19 08/06/19 08/07/19 12:23 17:13 00:21 WBC RBC Hgb Hct MCV MCH MCHC RDW Plt Count Lymph % (Auto) [place] % (Auto) Lymph # [place] # Baso # Seg Neutrophils % Seg Neuts % (Manual) Lymphocytes % (Manual) Monocytes % (Manual) Nucleated RBC % Seg Neutrophils # Seg Neutrophils # Man Lymphocytes # (Manual) Monocytes # (Manual) Basophils # (Manual) PT INR D-Dimer ABG pH ABG pO2 ABG HCO3 ABG O2 Saturation ABG Base Excess ABG Hemoglobin Oxyhemoglobin Sodium Potassium Chloride Carbon Dioxide BUN Creatinine Glucose POC Glucose 112 H 132 H 147 H Lactic Acid Calcium Magnesium Iron TIBC Ferritin AST ALT Lactate Dehydrogenase Troponin T C-Reactive Protein Total Protein Albumin Prealbumin Cholesterol LDL Cholesterol Direct HDL Cholesterol Urine WBC (Auto) Vancomycin Trough Coronavirus (PCR) Crossmatch 08/07/19 08/07/19 08/07/19 05:16 05:23 05:23 WBC 30.3 H RBC 2.69 L Hgb 7.1 L Hct 22.2 L MCV 83 L MCH 27 L MCHC RDW 19.1 H Plt Count 650 H Lymph % (Auto) [place] % (Auto) Lymph # [place] # Baso # Seg Neutrophils % Seg Neuts % (Manual) 88.0 H Lymphocytes % (Manual) 5.0 L Monocytes % (Manual) Nucleated RBC % Seg Neutrophils # Seg Neutrophils # Man 26.7 H Lymphocytes # (Manual) Monocytes # (Manual) 2.1 H Basophils # (Manual) PT INR D-Dimer ABG pH ABG pO2 ABG HCO3 ABG O2 Saturation ABG Base Excess ABG Hemoglobin Oxyhemoglobin Sodium 135 L Potassium 3.4 L Chloride 95.4 L Carbon Dioxide 32 H BUN Creatinine 0.4 L Glucose 120 H POC Glucose 120 H Lactic Acid Calcium 7.7 L Magnesium Iron TIBC Ferritin AST ALT Lactate Dehydrogenase Troponin T C-Reactive Protein Total Protein Albumin Prealbumin Cholesterol LDL Cholesterol Direct HDL Cholesterol Urine WBC (Auto) Vancomycin Trough Coronavirus (PCR) Crossmatch 08/07/19 08/07/19 08/07/19 10:24 10:24 11:10 WBC RBC Hgb Hct MCV MCH MCHC RDW Plt Count Lymph % (Auto) [place] % (Auto) Lymph # [place] # Baso # Seg Neutrophils % Seg Neuts % (Manual) Lymphocytes % (Manual) Monocytes % (Manual) Nucleated RBC % Seg Neutrophils # Seg Neutrophils # Man Lymphocytes # (Manual) Monocytes # (Manual) Basophils # (Manual) PT INR D-Dimer 1808.06 H ABG pH ABG pO2 73.3 L ABG HCO3 33.9 H ABG O2 Saturation ABG Base Excess 9.0 H ABG Hemoglobin 6.3 L Oxyhemoglobin 94.3 L Sodium Potassium Chloride Carbon Dioxide BUN Creatinine Glucose POC Glucose Lactic Acid Calcium Magnesium Iron TIBC Ferritin AST ALT Lactate Dehydrogenase Troponin T C-Reactive Protein 11.10 H Total Protein Albumin Prealbumin Cholesterol LDL Cholesterol Direct HDL Cholesterol Urine WBC (Auto) Vancomycin Trough Coronavirus (PCR) Crossmatch 08/07/19 08/08/19 08/08/19 12:01 04:41 04:41 WBC 22.1 H RBC 2.82 L Hgb 7.7 L Hct 23.6 L MCV MCH 27 L MCHC RDW 19.1 H Plt Count 722 H Lymph % (Auto) [place] % (Auto) Lymph # [place] # Baso # Seg Neutrophils % Seg Neuts % (Manual) 90.0 H Lymphocytes % (Manual) 3.0 L Monocytes % (Manual) Nucleated RBC % Seg Neutrophils # Seg Neutrophils # Man 19.9 H Lymphocytes # (Manual) 0.7 L Monocytes # (Manual) 1.3 H Basophils # (Manual) PT INR D-Dimer ABG pH ABG pO2 ABG HCO3 ABG O2 Saturation ABG Base Excess ABG Hemoglobin Oxyhemoglobin Sodium 136 L Potassium Chloride 97.8 L Carbon Dioxide BUN Creatinine 0.3 L Glucose 105 H POC Glucose 130 H Lactic Acid Calcium 7.8 L Magnesium Iron TIBC Ferritin AST ALT Lactate Dehydrogenase Troponin T C-Reactive Protein Total Protein Albumin Prealbumin Cholesterol LDL Cholesterol Direct HDL Cholesterol Urine WBC (Auto) Vancomycin Trough Coronavirus (PCR) Crossmatch 08/08/19 08/08/19 08/09/19 11:46 18:35 00:12 WBC RBC Hgb Hct MCV MCH MCHC RDW Plt Count Lymph % (Auto) [place] % (Auto) Lymph # [place] # Baso # Seg Neutrophils % Seg Neuts % (Manual) Lymphocytes % (Manual) Monocytes % (Manual) Nucleated RBC % Seg Neutrophils # Seg Neutrophils # Man Lymphocytes # (Manual) Monocytes # (Manual) Basophils # (Manual) PT INR D-Dimer ABG pH ABG pO2 ABG HCO3 ABG O2 Saturation ABG Base Excess ABG Hemoglobin Oxyhemoglobin Sodium Potassium Chloride Carbon Dioxide BUN Creatinine Glucose POC Glucose 117 H 117 H 117 H Lactic Acid Calcium Magnesium Iron TIBC Ferritin AST ALT Lactate Dehydrogenase Troponin T C-Reactive Protein Total Protein Albumin Prealbumin Cholesterol LDL Cholesterol Direct HDL Cholesterol Urine WBC (Auto) Vancomycin Trough Coronavirus (PCR) Crossmatch 08/09/19 08/09/19 08/09/19 05:33 12:22 17:48 WBC RBC Hgb Hct MCV MCH MCHC RDW Plt Count Lymph % (Auto) [place] % (Auto) Lymph # [place] # Baso # Seg Neutrophils % Seg Neuts % (Manual) Lymphocytes % (Manual) Monocytes % (Manual) Nucleated RBC % Seg Neutrophils # Seg Neutrophils # Man Lymphocytes # (Manual) Monocytes # (Manual) Basophils # (Manual) PT INR D-Dimer ABG pH ABG pO2 ABG HCO3 ABG O2 Saturation ABG Base Excess ABG Hemoglobin Oxyhemoglobin Sodium Potassium Chloride Carbon Dioxide BUN Creatinine Glucose POC Glucose 119 H 133 H 123 H Lactic Acid Calcium Magnesium Iron TIBC Ferritin AST ALT Lactate Dehydrogenase Troponin T C-Reactive Protein Total Protein Albumin Prealbumin Cholesterol LDL Cholesterol Direct HDL Cholesterol Urine WBC (Auto) Vancomycin Trough Coronavirus (PCR) Crossmatch 08/09/19 08/09/19 08/10/19 17:59 18:15 00:02 WBC RBC Hgb 6.7 L Hct 20.4 L MCV MCH MCHC RDW Plt Count Lymph % (Auto) [place] % (Auto) Lymph # [place] # Baso # Seg Neutrophils % Seg Neuts % (Manual) Lymphocytes % (Manual) Monocytes % (Manual) Nucleated RBC % Seg Neutrophils # Seg Neutrophils # Man Lymphocytes # (Manual) Monocytes # (Manual) Basophils # (Manual) PT INR D-Dimer ABG pH ABG pO2 ABG HCO3 ABG O2 Saturation ABG Base Excess ABG Hemoglobin Oxyhemoglobin Sodium Potassium Chloride Carbon Dioxide BUN Creatinine Glucose POC Glucose 124 H Lactic Acid Calcium Magnesium Iron TIBC Ferritin AST ALT Lactate Dehydrogenase Troponin T C-Reactive Protein Total Protein Albumin Prealbumin Cholesterol LDL Cholesterol Direct HDL Cholesterol Urine WBC (Auto) Vancomycin Trough Coronavirus (PCR) Crossmatch See Detail 08/10/19 08/10/19 08/10/19 05:47 08:00 08:00 WBC 16.9 H RBC 2.94 L Hgb 8.2 L Hct 24.9 L MCV MCH MCHC RDW 17.0 H Plt Count 661 H Lymph % (Auto) [place] % (Auto) Lymph # [place] # Baso # Seg Neutrophils % Seg Neuts % (Manual) Lymphocytes % (Manual) Monocytes % (Manual) Nucleated RBC % Seg Neutrophils # Seg Neutrophils # Man Lymphocytes # (Manual) Monocytes # (Manual) Basophils # (Manual) PT INR D-Dimer ABG pH ABG pO2 ABG HCO3 ABG O2 Saturation ABG Base Excess ABG Hemoglobin Oxyhemoglobin Sodium Potassium Chloride Carbon Dioxide BUN Creatinine 0.3 L Glucose 116 H POC Glucose 148 H Lactic Acid Calcium 7.7 L Magnesium Iron TIBC Ferritin AST ALT Lactate Dehydrogenase Troponin T C-Reactive Protein Total Protein Albumin Prealbumin Cholesterol LDL Cholesterol Direct HDL Cholesterol Urine WBC (Auto) Vancomycin Trough Coronavirus (PCR) Crossmatch 08/10/19 08/10/19 08/10/19 12:38 18:06 23:56 WBC RBC Hgb Hct MCV MCH MCHC RDW Plt Count Lymph % (Auto) [place] % (Auto) Lymph # [place] # Baso # Seg Neutrophils % Seg Neuts % (Manual) Lymphocytes % (Manual) Monocytes % (Manual) Nucleated RBC % Seg Neutrophils # Seg Neutrophils # Man Lymphocytes # (Manual) Monocytes # (Manual) Basophils # (Manual) PT INR D-Dimer ABG pH ABG pO2 ABG HCO3 ABG O2 Saturation ABG Base Excess ABG Hemoglobin Oxyhemoglobin Sodium Potassium Chloride Carbon Dioxide BUN Creatinine Glucose POC Glucose 113 H 126 H 115 H Lactic Acid Calcium Magnesium Iron TIBC Ferritin AST ALT Lactate Dehydrogenase Troponin T C-Reactive Protein Total Protein Albumin Prealbumin Cholesterol LDL Cholesterol Direct HDL Cholesterol Urine WBC (Auto) Vancomycin Trough Coronavirus (PCR) Crossmatch 08/10/19 08/11/19 08/12/19 Unknown 18:10 03:30 WBC 14.4 H RBC 2.58 L Hgb 7.4 L Hct 22.1 L MCV MCH MCHC RDW 17.4 H Plt Count 786 H Lymph % (Auto) [place] % (Auto) Lymph # [place] # Baso # Seg Neutrophils % Seg Neuts % (Manual) Lymphocytes % (Manual) Monocytes % (Manual) Nucleated RBC % Seg Neutrophils # Seg Neutrophils # Man Lymphocytes # (Manual) Monocytes # (Manual) Basophils # (Manual) PT INR D-Dimer ABG pH ABG pO2 ABG HCO3 ABG O2 Saturation ABG Base Excess ABG Hemoglobin Oxyhemoglobin Sodium Potassium Chloride Carbon Dioxide BUN Creatinine Glucose POC Glucose 106 H Lactic Acid Calcium Magnesium Iron TIBC Ferritin AST ALT Lactate Dehydrogenase Troponin T C-Reactive Protein Total Protein Albumin Prealbumin Cholesterol LDL Cholesterol Direct HDL Cholesterol Urine WBC (Auto) Vancomycin Trough Coronavirus (PCR) Positive A Crossmatch 08/12/19 08/12/19 08/13/19 03:30 12:08 05:25 WBC RBC Hgb Hct MCV MCH MCHC RDW Plt Count Lymph % (Auto) [place] % (Auto) Lymph # [place] # Baso # Seg Neutrophils % Seg Neuts % (Manual) Lymphocytes % (Manual) Monocytes % (Manual) Nucleated RBC % Seg Neutrophils # Seg Neutrophils # Man Lymphocytes # (Manual) Monocytes # (Manual) Basophils # (Manual) PT INR D-Dimer ABG pH ABG pO2 ABG HCO3 ABG O2 Saturation ABG Base Excess ABG Hemoglobin Oxyhemoglobin Sodium Potassium Chloride Carbon Dioxide BUN 7 L Creatinine 0.3 L Glucose 117 H POC Glucose 112 H 126 H Lactic Acid Calcium 7.8 L Magnesium Iron TIBC Ferritin AST ALT Lactate Dehydrogenase Troponin T C-Reactive Protein Total Protein Albumin Prealbumin Cholesterol LDL Cholesterol Direct HDL Cholesterol Urine WBC (Auto) Vancomycin Trough Coronavirus (PCR) Crossmatch 08/13/19 08/13/19 08/13/19 11:36 17:10 19:06 WBC RBC Hgb Hct MCV MCH MCHC RDW Plt Count Lymph % (Auto) [place] % (Auto) Lymph # [place] # Baso # Seg Neutrophils % Seg Neuts % (Manual) Lymphocytes % (Manual) Monocytes % (Manual) Nucleated RBC % Seg Neutrophils # Seg Neutrophils # Man Lymphocytes # (Manual) Monocytes # (Manual) Basophils # (Manual) PT INR D-Dimer ABG pH ABG pO2 105.0 H ABG HCO3 28.5 H ABG O2 Saturation ABG Base Excess 3.5 H ABG Hemoglobin 7.8 L Oxyhemoglobin Sodium Potassium Chloride Carbon Dioxide BUN Creatinine Glucose POC Glucose 143 H 107 H Lactic Acid Calcium Magnesium Iron TIBC Ferritin AST ALT Lactate Dehydrogenase Troponin T C-Reactive Protein Total Protein Albumin Prealbumin Cholesterol LDL Cholesterol Direct HDL Cholesterol Urine WBC (Auto) Vancomycin Trough Coronavirus (PCR) Crossmatch 08/13/19 08/14/19 08/14/19 23:23 05:00 05:00 WBC 14.3 H RBC 2.76 L Hgb 7.8 L Hct 23.9 L MCV MCH MCHC RDW 18.7 H Plt Count 896 H Lymph % (Auto) [place] % (Auto) Lymph # [place] # Baso # Seg Neutrophils % Seg Neuts % (Manual) Lymphocytes % (Manual) Monocytes % (Manual) Nucleated RBC % Seg Neutrophils # Seg Neutrophils # Man Lymphocytes # (Manual) Monocytes # (Manual) Basophils # (Manual) PT INR D-Dimer ABG pH ABG pO2 ABG HCO3 ABG O2 Saturation ABG Base Excess ABG Hemoglobin Oxyhemoglobin Sodium Potassium Chloride Carbon Dioxide BUN 6 L Creatinine 0.3 L Glucose POC Glucose 125 H Lactic Acid Calcium 8.2 L Magnesium Iron TIBC Ferritin AST ALT Lactate Dehydrogenase Troponin T C-Reactive Protein Total Protein Albumin Prealbumin Cholesterol LDL Cholesterol Direct HDL Cholesterol Urine WBC (Auto) Vancomycin Trough Coronavirus (PCR) Crossmatch 08/14/19 08/15/19 08/15/19 05:07 00:25 05:42 WBC RBC Hgb Hct MCV MCH MCHC RDW Plt Count Lymph % (Auto) [place] % (Auto) Lymph # [place] # Baso # Seg Neutrophils % Seg Neuts % (Manual) Lymphocytes % (Manual) Monocytes % (Manual) Nucleated RBC % Seg Neutrophils # Seg Neutrophils # Man Lymphocytes # (Manual) Monocytes # (Manual) Basophils # (Manual) PT INR D-Dimer ABG pH ABG pO2 ABG HCO3 ABG O2 Saturation ABG Base Excess ABG Hemoglobin Oxyhemoglobin Sodium Potassium Chloride Carbon Dioxide BUN Creatinine Glucose POC Glucose 128 H 117 H 115 H Lactic Acid Calcium Magnesium Iron TIBC Ferritin AST ALT Lactate Dehydrogenase Troponin T C-Reactive Protein Total Protein Albumin Prealbumin Cholesterol LDL Cholesterol Direct HDL Cholesterol Urine WBC (Auto) Vancomycin Trough Coronavirus (PCR) Crossmatch 08/15/19 08/15/19 08/15/19 06:10 06:10 06:10 WBC 11.6 H RBC 2.68 L Hgb 7.7 L Hct 23.3 L MCV MCH MCHC RDW 19.2 H Plt Count 885 H Lymph % (Auto) [place] % (Auto) Lymph # [place]itt # Baso # Seg Neutrophils % Seg Neuts % (Manual) Lymphocytes % (Manual) Monocytes % (Manual) Nucleated RBC % Seg Neutrophils # Seg Neutrophils # Man Lymphocytes # (Manual) Monocytes # (Manual) Basophils # (Manual) PT INR D-Dimer ABG pH ABG pO2 ABG HCO3 ABG O2 Saturation ABG Base Excess ABG Hemoglobin Oxyhemoglobin Sodium Potassium Chloride Carbon Dioxide BUN 6 L Creatinine 0.3 L Glucose 107 H POC Glucose Lactic Acid Calcium 8.2 L Magnesium 1.50 L Iron TIBC Ferritin AST ALT Lactate Dehydrogenase Troponin T C-Reactive Protein Total Protein Albumin Prealbumin Cholesterol LDL Cholesterol Direct HDL Cholesterol Urine WBC (Auto) Vancomycin Trough Coronavirus (PCR) Crossmatch 08/15/19 08/16/19 08/16/19 12:12 00:05 05:00 WBC 13.3 H RBC 2.87 L Hgb 8.1 L Hct 24.9 L MCV MCH MCHC RDW 18.7 H Plt Count 962 H Lymph % (Auto) [place] % (Auto) Lymph # [place] # Baso # Seg Neutrophils % Seg Neuts % (Manual) Lymphocytes % (Manual) Monocytes % (Manual) Nucleated RBC % Seg Neutrophils # Seg Neutrophils # Man Lymphocytes # (Manual) Monocytes # (Manual) Basophils # (Manual) PT INR D-Dimer ABG pH ABG pO2 ABG HCO3 ABG O2 Saturation ABG Base Excess ABG Hemoglobin Oxyhemoglobin Sodium Potassium Chloride Carbon Dioxide BUN Creatinine Glucose POC Glucose 112 H 111 H Lactic Acid Calcium Magnesium Iron TIBC Ferritin AST ALT Lactate Dehydrogenase Troponin T C-Reactive Protein Total Protein Albumin Prealbumin Cholesterol LDL Cholesterol Direct HDL Cholesterol Urine WBC (Auto) Vancomycin Trough Coronavirus (PCR) Crossmatch 08/16/19 08/16/19 08/16/19 05:00 05:00 23:35 WBC RBC Hgb Hct MCV MCH MCHC RDW Plt Count Lymph % (Auto) [place] % (Auto) Lymph # [place] # Baso # Seg Neutrophils % Seg Neuts % (Manual) Lymphocytes % (Manual) Monocytes % (Manual) Nucleated RBC % Seg Neutrophils # Seg Neutrophils # Man Lymphocytes # (Manual) Monocytes # (Manual) Basophils # (Manual) PT INR D-Dimer ABG pH ABG pO2 ABG HCO3 ABG O2 Saturation ABG Base Excess ABG Hemoglobin Oxyhemoglobin Sodium 135 L Potassium Chloride Carbon Dioxide BUN 6 L Creatinine 0.3 L Glucose POC Glucose 108 H Lactic Acid Calcium 8.2 L Magnesium Iron TIBC Ferritin AST ALT Lactate Dehydrogenase Troponin T C-Reactive Protein 2.70 H Total Protein Albumin 2.1 L Prealbumin Cholesterol LDL Cholesterol Direct HDL Cholesterol Urine WBC (Auto) Vancomycin Trough Coronavirus (PCR) Crossmatch 08/17/19 08/17/19 08/17/19 05:15 20:20 23:42 WBC RBC Hgb Hct MCV MCH MCHC RDW Plt Count Lymph % (Auto) [place] % (Auto) Lymph # [place] # Baso # Seg Neutrophils % Seg Neuts % (Manual) Lymphocytes % (Manual) Monocytes % (Manual) Nucleated RBC % Seg Neutrophils # Seg Neutrophils # Man Lymphocytes # (Manual) Monocytes # (Manual) Basophils # (Manual) PT INR D-Dimer ABG pH ABG pO2 ABG HCO3 27.8 H ABG O2 Saturation ABG Base Excess ABG Hemoglobin 11.4 L Oxyhemoglobin 94.6 L Sodium Potassium Chloride Carbon Dioxide BUN Creatinine Glucose POC Glucose 138 H 132 H Lactic Acid Calcium Magnesium Iron TIBC Ferritin AST ALT Lactate Dehydrogenase Troponin T C-Reactive Protein Total Protein Albumin Prealbumin Cholesterol LDL Cholesterol Direct HDL Cholesterol Urine WBC (Auto) Vancomycin Trough Coronavirus (PCR) Crossmatch 08/18/19 08/18/19 08/18/19 06:00 06:00 12:02 WBC 19.7 H RBC 3.30 L Hgb 9.3 L Hct 28.5 L MCV MCH MCHC RDW 18.9 H Plt Count 923 H Lymph % (Auto) [place] % (Auto) Lymph # [place] # Baso # Seg Neutrophils % Seg Neuts % (Manual) Lymphocytes % (Manual) Monocytes % (Manual) Nucleated RBC % Seg Neutrophils # Seg Neutrophils # Man Lymphocytes # (Manual) Monocytes # (Manual) Basophils # (Manual) PT INR D-Dimer ABG pH ABG pO2 ABG HCO3 ABG O2 Saturation ABG Base Excess ABG Hemoglobin Oxyhemoglobin Sodium 136 L Potassium Chloride Carbon Dioxide BUN Creatinine 0.4 L Glucose 71 L POC Glucose 123 H Lactic Acid Calcium Magnesium Iron TIBC Ferritin AST ALT Lactate Dehydrogenase Troponin T C-Reactive Protein Total Protein Albumin Prealbumin Cholesterol LDL Cholesterol Direct HDL Cholesterol Urine WBC (Auto) Vancomycin Trough Coronavirus (PCR) Crossmatch Chest x-ray: image reviewed (persistent but slowly improving R>L infiltrates) Allied health notes reviewed: nursing
[2019-08-19] MEDS: PIPERACIL/TAZOBACTA 4.5/NS 100 4.5 GM/100 ML VIAL IV SCH ×5 (02:01→10:26)
[2019-08-19] MEDS: INSULIN LISPRO 100 UNIT/ML SUB-Q SCH ×4 (06:00→13:38)
[2019-08-19 08:44] LABS: Hematocrit 24.5 % (35.5-45.6); Hemoglobin 7.9 gm/dl (11.8-15.2); Mean Corpuscular HGB Conc 32 % (32-34); Mean Corpuscular Volume 86 fl (84-94); Platelet Count 772 K/mm3 (140-440); Red Blood Count 2.87 M/mm3 (3.65-5.03); Red Cell Distribution Width 18.8 % (13.2-15.2)
[2019-08-19 09:07] LABS: BUN/Creatinine Ratio 37; Blood Urea Nitrogen 11 mg/dL (9-20); Calcium 8.2 mg/dL (8.4-10.2); Hemolysis Index 2
[2019-08-19] MEDS: FAMOTIDINE 20 MG TAB PO SCH ×2 (10:26→21:25)
[2019-08-19] MEDS: levETIRAcetam 500 MG/5 ML ORAL LIQD FEEDTUBE SCH ×2 (10:26→21:24)
[2019-08-19] MEDS: ENOXAPARIN 40 MG/0.4 ML INJ SUB-Q SCH (10:26)
[2019-08-19] MEDS: ASPIRIN 81 MG TAB CHEW PO SCH (10:26)
[2019-08-19] MEDS: FOLIC ACID 1 MG TAB PO SCH (10:26)
[2019-08-19] MEDS: GLYCOPYRROLATE 1 MG TAB PO SCH ×3 (10:26→21:25)
[2019-08-19] MEDS: SODIUM HYPOCHLORITE, DAKIN'S 1/2 STRENGTH (0.25%) 473 ML TOPICAL SOLN TP SCH (10:28)
--- NOTE | 2019-08-19 11:05 | Progress Note ---
Assessment and Plan Cultures: 07/03/2019 urine culture: No growth 07/03/2019 Tracheal aspirate: E.coli 07/29/2019 urine culture: neg 07/30/2019 blood culture: no growth tracheal asp + Pseudomonas 08/06/2019 blood culture: no growth 08/09/2019 Wound MDR Enterobacter 08/16/2019 blood culture: no growth to date A/P: 69-year-old male with CVA, hypertension, dementia, schizophrenia, alcohol use disorder was admitted to the emergency room after being brought in by EMS with progressive shortness of breath and unresponsiveness. He was noted to have agonal breathing and a faint pulse requiring CPR. It seems patient was on hos pice recently, prior to admission. #Shock, likely septic: shock resolved, remains off pressors. still intermittent fever, leukocytosis worse again: bacterial pneumonia vs sacral decubitus infection. #Nonresolving pneumonia/Cavitary pneumonia: ? abscess. Sputum +Pseudomonas. CT shows RUL pneumonia with 2.4 cm cavity and LLL pneumonia with moderate left pleural effusion. No need for thoracentesis per Pulm #Penile/scrotal and buttocks wounds: ?cellulitis #Sacral decubitus: worsening on last exam ? necrotic. Evaluated for surgery, no indications for intervention. 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 bleeding overnight s/p surgical management bedside, 08/09/2019 Wound MDR Enterobacter likely a colonizer (superficial wound cx) #UTI: per documentation initial carroll placed on 07/03, exchanged on 07/31. #Severe COVID-19 disease and pneumonia: Markers improving. Completed Plaquenil. Completed Ceftriaxone for treatment E.coli in tracheal aspirate. Repeat COVID 08/10/2019 positive. #Acute respiratory failure: remains on mechanical ventilation. #Multiple skin tears documented on admission #Anemia: from sacral wound bleeding Recs: WBC increasing, intermittent fever. Blood cultures have remained negative. Question of drug fever was raised due to increasing eosinophils. F/U WBC differential d/c Zosyn and switch to Levofloxacin No diarrhea concerning for C.diff Continue wound care Overall prognosis is extremely poor Yanna Calzada MD, FACP [facility] ([facility] C: [phone] O: [phone] F: [phone] Subjective Date of service: 08/19/19 Principal diagnosis: Bilateral pneumonia, severe sepsis with septic shock, encephalopathy Interval history: Intermittent fever. Remains on the vent, in ICU. No diarrhea per d/w RN Pablo. Objective - Exam Narrative Exam: Physical Exam (reviewed in chart due to PPE conservation) Constitutional: intubated, sedated, on the vent Head, Ears, Nose: normocephalic, atraumatic Eyes: limited due to PPE conservation strategy Neck: intubated Oral: intubated Cardiovascular: limited due to PPE conservation strategy Respiratory: limited due to PPE conservation strategy GI: limited due to PPE conservation strategy Musculoskeletal: limited due to PPE conservation strategy Skin: limited due to PPE conservation strategy. Decubitus + Hem/Lymphatic: limited due to PPE conservation strategy Psych: no agitation Neurological: sedated, intubated, on the vent, exam limited - Constitutional Vitals: Vital Signs Temp Pulse Resp BP Pulse Ox 98.8 F 116 H 22 154/83 96 08/19/19 07:55 08/19/19 08:00 08/19/19 08:00 08/19/19 08:00 08/19/19 08:00 Temperature -Last 24 Hours Temperature 98.8 F Temperature 100.8 F Temperature 100.7 F Temperature 99.8 F Temperature 100.5 F Temperature 100.0 F Temperature 100.2 F Temperature 101.8 F - Labs CBC & Chem 7: 08/19/19 08:17 08/19/19 07:44 Labs: Abnormal lab results 08/18/19 08/18/19 08/18/19 Range/Units 12:02 18:23 23:16 WBC (4.5-11.0) K/mm3 RBC (3.65-5.03) M/mm3 Hgb (11.8-15.2) gm/dl Hct (35.5-45.6) % RDW (13.2-15.2) % Plt Count (140-440) K/mm3 Sodium (137-145) mmol/L Creatinine (0.8-1.5) mg/dL POC Glucose 123 H 140 H 159 H (70-105) Calcium (8.4-10.2) mg/dL 08/19/19 08/19/19 08/19/19 Range/Units 04:57 07:44 08:17 WBC 30.5 H (4.5-11.0) K/mm3 RBC 2.87 L (3.65-5.03) M/mm3 Hgb 7.9 L (11.8-15.2) gm/dl Hct 24.5 L (35.5-45.6) % RDW 18.8 H (13.2-15.2) % Plt Count 772 H (140-440) K/mm3 Sodium 136 L (137-145) mmol/L Creatinine 0.3 L (0.8-1.5) mg/dL POC Glucose 134 H (70-105) Calcium 8.2 L (8.4-10.2) mg/dL - Imaging and cardiology Chest x-ray: report reviewed, image reviewed (slightly improved)
[2019-08-19 11:28] LABS: Total Cells Counted 100
[2019-08-19 11:29] LABS: Anisocytosis Few; Hypochromasia 1+; Platelet Estimate Consistent w Auto
--- NOTE | 2019-08-19 11:29 | Progress Note ---
Assessment and Plan Assessment and plan: 69-year-old male with PMH of CVA with RHP, HTN, DM2, SCZ, Dementia, Alcohol use D/o, Seizure D/O, presents to the emergency department via EMS from home with progressive SOB and impending respiratory failure with an unresponsive episode. Apparently the patient was witnessed becoming unresponsive by family members. Reportedly, pt had just gotten a high dose of Hyoscamine When EMS got there, the patient was agonal breathing and had a faint pulse. No CPR was indicated per EMS. PT was intubated and received some IV fluid en route to the hospital. THe pt was under hospice- [facility] and reportedly the patient is a DNR according to the family but they were unable to provide the appropriate paperwork and to explain why the pt was discharged from hospice. The patient is bed bound and has LE atrophy and contractures. He also has history of cervical spine fracture, allegedly a fracture of some level of his back. A reliable HPI cannot be obtained from the pt due to mechanical ventilation. In the ED, pt was found to have bilateral PNA on CXR and WBC was 30K. --COVid positive pneumonia with severe sepsis ?abscess No need for drianage per ID/pULM Received Plaquenil and cefepime, monitor off antibiotics ID following --Recurrent fever --Acute metabolic encephalopathy: Unchanged despite no sedation --Septic shock: Improving hemodynamics was treated with Pressors Persistent hypotension, -- Acute respiratory Failure with Hypoxia Due to bilateral PNA with COVID 19 infection. On ventilatory support, unable to wean Pulmonary critical following --COPD with exacerbation Likely due to COVID-19 pneumonia Continue scheduled nebs --Anemia, Microcytic persistent s/p total 3 unit of PRBC, today Hb today 9.1 --Pressure Ulcers: concerning for osteomylitis POA/ Scrotal ulcers buttocks, right lateral foot area wound and supportive care --Hyponatremia, resolved --DM type 2: Accu-Chek SCC tube feeding, insulin as needed --h/o HTN Essential, now hypotensive On Levophed --Seizure D/o/CVA/immobility/BIpolar D/o/SCZ Seizure precautions, antiepileptic medications --Severe PCM, TF supportive care, dietary following patient is DNR- Called and verified information Very poor prognosis, Recommend hospice 07/04: COVID +ve, start on plaquinil, called no answer 07/05: transfuse one unit PRBC, Hb dropped to ~6, called and updated 07/06; H&H stable, serum chemistry improved. On mechanical ventilation with high inflammatory markers. Continue Plaquenil and empiric antibiotics. ID following, prognosis remains guarded and extremely poor. 07/07: On mechanical ventilation with high inflammatory markers. Continue Plaquenil and empiric antibiotics. ID following, prognosis remains guarded and extremely poor. 07/08: Called today and verified the CODE STATUS. Patient remains DNR. He is still intubated, with poor prognosis. Continue to follow inflammatory markers. 07/09 wean off from vent as tolerated, completed empiric antibiotic and Plaquenil 07/10 wean off from vent as tolerated. poor prognosis 07/11 hb 6.7 today, transfuse one PRBC. wean off from vent as tolerated. poor prognosis 07/12 remains critically on vent. Hb 6.9 07/13 Hb dropped to 6.6, transfuse 1 unit of PRBC, remains on vent critically ill Hypotensive, fluid bolus, if no improvement start Levophed 07/14; remains anemic with hemoglobin of 6.8, received total 3 units of PRBC Additional 1 unit of PRBC today, stool for occult blood to rule out GI causes Started back on Levophed due to hypotension 07/15; patient remains critically ill, hypotensive on Levophed 07/16: Today remains intubated on vent, persistent hypotension on Levophed 07/17; clinically no change, pressor dependent[on Levophed] DNR status 07/18: Patient remains hypotensive requiring Levophed, intubated on vent Unable to wean, critically ill. DNR 07/20/2019 Patient remains hypotensive requiring Levophed, intubated on vent. Patient currently with AC mode ventilation, rate 20, tidal volume 500, FiO2 40% and PEEP 6. Patient is a poor prognosis and apparently was on hospice recently. 07/21/2019. Patient with PEG tube that was clogged yesterday. surgery evaluated the patient and noted Very long PEG tubing with thick material inside. The entire tube was stripped and a large amount of formed tube feed was expressed. The tube was then flushed with sprite and flushed easily. Tube clamped. Patient currently with AC mode ventilation, rate 20, tidal volume 500, FiO2 40% and PEEP 6. Patient is a poor prognosis and apparently was on hospice recently. 07/22/2019. Patient currently with AC mode ventilation, rate 20, tidal volume 500, FiO2 30% and PEEP 6. Patient on sedation with fentanyl drip. Continue Levophed to maintain MAP greater than 65. Patient is a poor prognosis and apparently was on hospice recently. 07/23/2019. Patient currently with AC mode ventilation, rate 20, tidal volume 500, FiO2 30% and PEEP 6. Patient on sedation with fentanyl drip. Continue Levophed to maintain MAP greater than 65. Patient is a poor prognosis and apparently was on hospice recently. 07/24/2019 Patient with Covid-19 infection with pneumonia, acute respiratory failure, intubated on ventilator. No more fever. Continue current management. 07/25/2019 Patient with Covid-19 infection with pneumonia, acute respiratory failure, intubated on ventilator. fever is now resolved. Sedated with propofol 07/26/2019 Patient with covid-19 infection. Still intubated, on vent. 07/27/2019 Patient with Covid-19. he is still critically ill. patient has DNR order. 07/28/2019 Patient with Covid-19 infection. Will repeat labs today. Surgeon consulted for tracheostomy. 07/29/2019 Patient with Covid-19. hypokalemia yesterday, replaced. Will recheck labs in am. 07/30/2019 patient with Covid-19 infection with acute respiratory failure. He is intubated on ventilator. has hypokalemia. replace and recheck BMP in am. patient has UTI, started on Cefepime. 07/31/2019. patient with Covid-19 infection with acute respiratory failure. He is intubated on ventilator. Repeat chest x-ray reveals decreased infiltrates. urology consultation and wound care consult per ID. Follow-up urine and blood culture. Tracheostomy per surgery. 08/01/2019. patient with Covid-19 infection with acute respiratory failure. He is intubated on ventilator. Patient currently with PSV trials. Pressure support 18/PEEP 6. FiO2 30%. Tracheostomy to be placed per surgery wound COVID testing negative. 08/02/2019. Patient with COVID-19 infection and acute respiratory failure on mechanical ventilation. Continue with PSVT trials with pressure support increas ed to 20. Follow-up serial chest x-ray. Continue Fentanyl infusion and wean sedation as tolerated. Continue daily spontaneous breathing trials. 08/03/2019. Patient with COVID-19 infection and acute respiratory failure on mechanical ventilation. Continue with PSV trials with pressure support inc reased to 20. Follow-up serial chest x-ray. Continue Fentanyl infusion and wean sedation as tolerated. Continue daily spontaneous breathing trials. 08/04/2019. Patient with COVID-19 infection and acute respiratory failure on mechanical ventilation. Continue with PSV trials 14/6, FiO2 30%. Continue Fentanyl infusion and wean sedation as tolerated. Continue daily spontaneous breathing trials. Tracheostomy placement to be scheduled when COVID testing is negative per surgery. Monitor off antibiotics per ID recommendations 08/05/2019. Patient with COVID-19 infection and acute respiratory failure on mechanical ventilation. Patient currently on AC mode, rate 14, tidal volume 500, FiO2 30% and PEEP of 6. Continue PSV trials as tolerated. Tracheostomy placement to be scheduled when COVID testing is negative per surgery. Monitor off antibiotics per ID recommendations. 08/06/2019. Patient with COVID-19 infection and acute respiratory failure on mechanical ventilation. Patient currently on AC mode, rate 14, tidal volume 500, FiO2 30% and PEEP of 6. Continue PSV trials as tolerated. Tracheostomy placement to be scheduled when COVID testing is negative per surgery. ID rest arted antibiotics with cefepime 2 g IV every 8 hours to cover for presumed Pseudomonas pneumonia. Follow-up chest x-ray and blood cultures. Repeat COVID testing 07/28 and positive. Repeat test tomorrow. 08/07/19 Patient with Covid-19, acute respiratory failure. He is still intubated on mechanical ventilator. For tracheostomy when Covid-19 test negative. Still having fever. Leukocytosis worse today, WBC 30.3. For CT Chest, Abdomen. 08/08/19 patient with Covid-19, acute respiratory failure. He is still critically ill, intubated. He is for tracheostomy after Covid-19 test negative. Fever improving. Temp 99.[address] Chest and Abdomen done yesterday pending. 08/09/2019 patient with Covid-19 infection, acute resp failure. Still intubated on ventilator. Fever of 100.3 this morning. I discussed with his Nurse 08/10/2019 Patient with Covid-19 infection. acute respirator failure. patient s till in critical condition, intubated. 08/11/2019 Patient with Covid-19 infection, acute resp failure. He is still intubated on vent. 08/12/2019 Patient with Covid-19 infection, acute resp failure. He is still intubated on vent. Discussed with yesterday and gave update. Covid-19 test done 08/09 still positive. 08/13/2019 Patient with Covid-19 infection, acute resp failure. He is still intu bated on vent. Discussed with 08/10 and gave update. Covid-19 test done 08/09 still positive. Fever of 101.8 last night 08/14/19: Remains on full ventilatory support. No clinical change 08/14: Remains in full ventilatory support. Replace electrolytes, awaiting Negative covid testing to be able to do Trach and Peg. Per ID Anticipate to d/c on zosyn 4.5 gm IV q 8 hour for 3 weeks until 08/27/2019 to cover for lung abscess and sacral wound infection/osteomyelitis, I am holding off 6 weeks treatment for osteomyelitis as possibility of flap/healing is unlikely. 08/15: No clinical change. Remains on full ventilatory support. Discussed with consulting physicians. We will continue to wean as tolerated. Awaiting negative COVID test prior to trach and PEG. Continue intermittent labs monitor hemoglobin. Platelets continues to rise. This could be a reactive reaction. 08/16: Awaiting negative COVID test for placement of trach and PEG. In the meantime we will continue aggressive attempt to wean patient. Cultures have been reviewed and discussed with infectious disease who is managing treatment at this time. Continue wound care dressing. Multiple skin tears were noted on admission will continue to follow. Patient receiving repeat chest x-ray reviewed today shows stable bilateral pulmonary disease and no acuity noted on KUB due to persistent fever ID reviewing increases acidophil wondering if there is drug fever will follow closely. Prognosis remains guarded. 08/17: Continue current management, monitor WBC, mildly elevated. 08/18: Remains on full ventilatory support mental status still unchanged. Continue supportive care. Antibiotics adjustment per ID. Discussed with nursing staff will do some wound dressing changes today to see progression. My understanding was that the wounds did have significant bleed last time but tamponaded. Will monitor in the setting of anemia. The high probability of a clinically significant, sudden or life threatening deterioration of the [respiratory, CVS, HOSTESS HOST] system(s) required my full and direct attention, intervention and personal management. The aggregate critical care time was [35] minutes. This time is in addition to time spent performing reported procedures but includes the following: [x] Data Review and interpretation [x] Patient assessment and monitoring of vital signs [x] Documentation [x] Medication orders and management History Interval history: Patient with Covid-19 infection Still intubated No clinical change Discussed with nursing staff patient awakens on verbal stimuli but not following commands, Hospitalist Physical - Physical exam Narrative exam: GEN: Not in acute distress, intubated, awakens to verbal stimuli but not following commands. Still markedly lethargic HEENT: Normocephalic, atraumatic, Neck: Supple, No JVD Lungs: Bilateral crackles, Heart; S1 and S2 reg, no murmurs, rubs or gallop Abd:soft, non tender, non distended, normal bowel sounds,PEG tube Ext: Dependent edema hands and feet. No clubbing, no cyanosis, contracted Neuro: Intubated, on ventilator Skin: See full documentation by wound care nurse. Pain no ulcer with dressing noted. - Constitutional Vitals: Temp Pulse Resp BP Pulse Ox 98.8 F 116 H 22 154/83 96 08/19/19 07:55 08/19/19 08:00 08/19/19 08:00 08/19/19 08:00 08/19/19 08:00 General appearance: Present: other (Orally intubated on vent) HEART Score - HEART Score Troponin: Troponin T 0.013 ng/mL (0.00-0.029) 07/04/19 07:05 Results - Labs CBC & Chem 7: 08/19/19 08:17 08/19/19 07:44 Labs: Laboratory Last Values WBC 30.5 K/mm3 (4.5-11.0) H 08/19/19 08:17 RBC 2.87 M/mm3 (3.65-5.03) L 08/19/19 08:17 Hgb 7.9 gm/dl (11.8-15.2) L 08/19/19 08:17 Hct 24.5 % (35.5-45.6) L 08/19/19 08:17 MCV 86 fl (84-94) 08/19/19 08:17 MCH 28 pg (28-32) 08/19/19 08:17 MCHC 32 % (32-34) 08/19/19 08:17 RDW 18.8 % (13.2-15.2) H 08/19/19 08:17 Plt Count 772 K/mm3 (140-440) H 08/19/19 08:17 Lymph % (Auto) 4.9 % (13.4-35.0) L 07/19/19 08:45 [place] % (Auto) 12.2 % (0.0-7.3) H 07/22/19 05:38 Eos % (Auto) 1.0 % (0.0-4.3) 07/19/19 08:45 Baso % (Auto) 0.5 % (0.0-1.8) 07/19/19 08:45 Lymph # 0.8 K/mm3 (1.2-5.4) L 07/19/19 08:45 [place] # 1.5 K/mm3 (0.0-0.8) H 07/22/19 05:38 Eos # 0.2 K/mm3 (0.0-0.4) 07/19/19 08:45 Baso # 0.1 K/mm3 (0.0-0.1) 07/19/19 08:45 Add Manual Diff Complete 08/08/19 04:41 Total Counted 100 08/08/19 04:41 Seg Neutrophils % 72.8 % (40.0-70.0) H 07/22/19 05:38 Seg Neuts % (Manual) 90.0 % (40.0-70.0) H 08/08/19 04:41 Band Neutrophils % 0 % 08/08/19 04:41 Lymphocytes % (Manual) 3.0 % (13.4-35.0) L 08/08/19 04:41 Reactive Lymphs % (Man) 0 % 08/08/19 04:41 Monocytes % (Manual) 6.0 % (0.0-7.3) 08/08/19 04:41 Eosinophils % (Manual) 1.0 % (0.0-4.3) 08/08/19 04:41 Basophils % (Manual) 0 % (0.0-1.8) 08/08/19 04:41 Metamyelocytes % 0 % 08/08/19 04:41 Myelocytes % 0 % 08/08/19 04:41 Promyelocytes % 0 % 08/08/19 04:41 Blast Cells % 0 % 08/08/19 04:41 Nucleated RBC % Not Reportable 08/08/19 04:41 Seg Neutrophils # 9.2 K/mm3 (1.8-7.7) H 07/22/19 05:38 Seg Neutrophils # Man 19.9 K/mm3 (1.8-7.7) H 08/08/19 04:41 Band Neutrophils # 0.0 K/mm3 08/08/19 04:41 Lymphocytes # (Manual) 0.7 K/mm3 (1.2-5.4) L 08/08/19 04:41 Abs React Lymphs (Man) 0.0 K/mm3 08/08/19 04:41 Monocytes # (Manual) 1.3 K/mm3 (0.0-0.8) H 08/08/19 04:41 Eosinophils # (Manual) 0.2 K/mm3 (0.0-0.4) 08/08/19 04:41 Basophils # (Manual) 0.0 K/mm3 (0.0-0.1) 08/08/19 04:41 Metamyelocytes # 0.0 K/mm3 08/08/19 04:41 Myelocytes # 0.0 K/mm3 08/08/19 04:41 Promyelocytes # 0.0 K/mm3 08/08/19 04:41 Blast Cells # 0.0 K/mm3 08/08/19 04:41 WBC Morphology Not Reportable 08/08/19 04:41 Hypersegmented Neuts Not Reportable 08/08/19 04:41 Hyposegmented Neuts Not Reportable 08/08/19 04:41 Hypogranular Neuts Not Reportable 08/08/19 04:41 Smudge Cells Not Reportable 08/08/19 04:41 Toxic Granulation Not Reportable 08/08/19 04:41 Toxic Vacuolation Not Reportable 08/08/19 04:41 Dohle Bodies Not Reportable 08/08/19 04:41 Pelger-Huet Anomaly Not Reportable 08/08/19 04:41 Mendy Rods Not Reportable 08/08/19 04:41 Platelet Estimate Consistent w auto 08/08/19 04:41 Clumped Platelets Not Reportable 08/08/19 04:41 Plt Clumps, EDTA Not Reportable 08/08/19 04:41 Large Platelets Not Reportable 08/08/19 04:41 Giant Platelets Not Reportable 08/08/19 04:41 Platelet Satelliting Not Reportable 08/08/19 04:41 Plt Morphology Comment Not Reportable 08/08/19 04:41 RBC Morphology Not Reportable 08/08/19 04:41 Dimorphic RBCs Not Reportable 08/08/19 04:41 Polychromasia Not Reportable 08/08/19 04:41 Hypochromasia Few 08/08/19 04:41 Poikilocytosis Not Reportable 08/08/19 04:41 Anisocytosis Rare 08/08/19 04:41 Microcytosis Rare 08/08/19 04:41 Macrocytosis Not Reportable 08/08/19 04:41 Spherocytes Not Reportable 08/08/19 04:41 Pappenheimer Bodies Not Reportable 08/08/19 04:41 Sickle Cells Not Reportable 08/08/19 04:41 Target Cells Not Reportable 08/08/19 04:41 Tear Drop Cells Not Reportable 08/08/19 04:41 Ovalocytes Rare 08/08/19 04:41 Stomatocytes Few 08/01/19 04:57 Helmet Cells Not Reportable 08/08/19 04:41 [place] Bodies Not Reportable 08/08/19 04:41 [place] Rings Not Reportable 08/08/19 04:41 Joanne Cells Not Reportable 08/08/19 04:41 Bite Cells Not Reportable 08/08/19 04:41 Crenated Cell Not Reportable 08/08/19 04:41 Elliptocytes Not Reportable 08/08/19 04:41 Acanthocytes (Spur) Not Reportable 08/08/19 04:41 Rouleaux Not Reportable 08/08/19 04:41 Hemoglobin C Crystals Not Reportable 08/08/19 04:41 Schistocytes Rare 08/08/19 04:41 Malaria parasites Not Reportable 08/08/19 04:41 Jeevan Bodies Not Reportable 08/08/19 04:41 Hem Pathologist Commnt No 08/08/19 04:41 PT 16.0 Sec. (12.2-14.9) H 07/03/19 22:20 INR 1.26 (0.87-1.13) H 07/03/19 22:20 D-Dimer 1808.06 ng/mlDDU (0-234) H 08/07/19 10:24 ABG pH 7.405 pH Units (7.350-7.450) 08/17/19 20:20 ABG pCO2 45.3 mm Hg 08/17/19 20:20 ABG pO2 84.2 mm Hg (80.0-90.0) 08/17/19 20:20 ABG HCO3 27.8 mmol/L (20.0-26.0) H 08/17/19 20:20 ABG O2 Saturation 96.9 % (95.0-99.0) 08/17/19 20:20 ABG O2 Content 15.2 (0.0-44) 08/17/19 20:20 ABG Base Excess 2.6 mmol/L (-2.0-3.0) 08/17/19 20:20 ABG Hemoglobin 11.4 gm/dl (14.0-18.0) L 08/17/19 20:20 ABG Carboxyhemoglobin 1.9 % (0.0-5.0) 08/17/19 20:20 ABG Methemoglobin 0.5 % (0.0-1.5) 08/17/19 20:20 Oxyhemoglobin 94.6 % (95.0-99.0) L 08/17/19 20:20 FiO2 28 % 08/17/19 20:20 Sodium 136 mmol/L (137-145) L 08/19/19 07:44 Potassium 4.2 mmol/L (3.6-5.0) 08/19/19 07:44 Chloride 100.5 mmol/L (98-107) 08/19/19 07:44 Carbon Dioxide 25 mmol/L (22-30) 08/19/19 07:44 Anion Gap 15 mmol/L 08/19/19 07:44 BUN 11 mg/dL (9-20) 08/19/19 07:44 Creatinine 0.3 mg/dL (0.8-1.5) L 08/19/19 07:44 Estimated GFR > 60 ml/min 08/19/19 07:44 BUN/Creatinine Ratio 37 % 08/19/19 07:44 Glucose 100 mg/dL (75-100) 08/19/19 07:44 POC Glucose 134 (70-105) H 08/19/19 04:57 Osmolality 268 Mosm/kg 07/05/19 04:00 Lactic Acid 1.70 mmol/L (0.7-2.0) 08/18/19 13:00 Uric Acid 7.2 mg/dL (3.5-7.6) 07/05/19 04:00 Calcium 8.2 mg/dL (8.4-10.2) L 08/19/19 07:44 Phosphorus 3.60 mg/dL (2.5-4.5) 07/05/19 04:00 Magnesium 1.50 mg/dL (1.7-2.3) L 08/15/19 06:10 Iron 9 ug/dL (49-181) L 07/04/19 07:05 TIBC 97 mcg/dL (250-450) L 07/04/19 07:05 Ferritin 360.4 ng/mL (13.0-400.0) 08/07/19 10:24 Total Bilirubin 0.20 mg/dL (0.1-1.2) 08/16/19 05:00 AST 20 units/L (5-40) 08/16/19 05:00 ALT 8 units/L (7-56) 08/16/19 05:00 Alkaline Phosphatase 77 units/L (35-129) 08/16/19 05:00 Ammonia 35.0 umol/L (25-60) 07/03/19 23:58 Lactate Dehydrogenase 144 units/L (91-180) 08/07/19 10:24 Troponin T 0.013 ng/mL (0.00-0.029) 07/04/19 07:05 C-Reactive Protein 2.70 mg/dL (0.00-1.30) H 08/16/19 05:00 Total Protein 7.0 g/dL (6.3-8.2) 08/16/19 05:00 Albumin 2.1 g/dL (3.9-5) L 08/16/19 05:00 Albumin/Globulin Ratio 0.4 % 08/16/19 05:00 Prealbumin 0.037 g/L (0.200-0.400) L 07/31/19 04:42 Triglycerides 33 mg/dL (2-149) 07/03/19 19:57 Cholesterol 47 mg/dL (50-199) L 07/03/19 19:57 LDL Cholesterol Direct 25 mg/dL (50-130) L 07/03/19 19:57 HDL Cholesterol 20 mg/dL (40-59) L 07/03/19 19:57 Cholesterol/HDL Ratio 2.35 % 07/03/19 19:57 Procalcitonin < 0.05 ng/mL (<0.15) 08/16/19 14:35 TSH 2.170 mlU/mL (0.270-4.200) 07/03/19 22:20 Total Cortisol 28.0 mcg/dL () 07/05/19 10:11 Urine Color Yellow (Yellow) 07/29/19 11:57 Urine Turbidity Clear (Clear) 07/29/19 11:57 Urine pH 7.0 (5.0-7.0) 07/29/19 11:57 Ur Specific [place] 1.012 (1.003-1.030) 07/29/19 11:57 Urine Protein <15 mg/dl mg/dL (Negative) 07/29/19 11:57 Urine Glucose (UA) Neg mg/dL (Negative) 07/29/19 11:57 Urine Ketones Neg mg/dL (Negative) 07/29/19 11:57 Urine Blood Sm (Negative) 07/29/19 11:57 Urine Nitrite Neg (Negative) 07/29/19 11:57 Urine Bilirubin Neg (Negative) 07/29/19 11:57 Urine Urobilinogen 4.0 mg/dL (<2.0) 07/29/19 11:57 Ur Leukocyte Esterase Mod (Negative) 07/29/19 11:57 Urine WBC (Auto) 63.0 /HPF (0.0-6.0) H 07/29/19 11:57 Urine RBC (Auto) 14.0 /HPF (0.0-6.0) 07/29/19 11:57 U Epithel Cells (Auto) < 1.0 /HPF (0-13.0) 07/29/19 11:57 Urine Bacteria (Auto) 1+ /HPF (Negative) 07/29/19 11:57 Urine WBC Clumps Few /HPF 07/03/19 21:13 Urine Mucus Few /HPF 07/03/19 21:13 Urine Osmolality 293 Mosm/kg 07/05/19 08:15 Vancomycin Trough 23.2 ug/mL (5.0-20.0) H 07/05/19 17:54 Urine Opiates Screen Presumptive negative 07/03/19 21:13 Urine Methadone Screen Presumptive negative 07/03/19 21:13 Ur Barbiturates Screen Presumptive negative 07/03/19 21:13 Ur Phencyclidine Scrn Presumptive negative 07/03/19 21:13 Ur Amphetamines Screen Presumptive negative 07/03/19 21:13 U Benzodiazepines Scrn Presumptive negative 07/03/19 21:13 Urine Cocaine Screen Presumptive negative 07/03/19 21:13 U Marijuana (THC) Screen Presumptive negative 07/03/19 21:13 Drugs of Abuse Note Disclamer 07/03/19 21:13 Plasma/Serum Alcohol < 0.01 % (0-0.07) 07/03/19 23:58 Coronavirus (PCR) Positive (Negative) A 08/10/19 Unknown Hepatitis A IgM Ab Non-reactive (NonReactive) 08/07/19 10:24 Hep Bs Antigen Non-reactive (Negative) 08/07/19 10:24 Hep B Core IgM Ab Non-reactive (NonReactive) 08/07/19 10:24 Hepatitis C Antibody Non-reactive (NonReactive) 08/07/19 10:24 Blood Type B POSITIVE 08/09/19 17:59 Antibody Screen Negative 08/09/19 17:59 Crossmatch See Detail 08/09/19 17:59 Microbiology: Microbiology 08/16/19 14:35 Peripheral/Venous Blood Culture - Preliminary NO GROWTH AFTER 48 HOURS 08/16/19 14:35 Peripheral/Venous Blood Culture - Preliminary NO GROWTH AFTER 48 HOURS Wright/IV: Voiding Method Indwelling Catheter IV Catheter Type [Left Triple Lumen Cath Internal Jugular] IV Catheter Type [Left INT / Saline Lock Antecubital] IV Catheter Type [Left Forearm Peripheral IV ] IV Catheter Type [Left Upper Mid-line arm] IV Catheter Type [Right INT / Saline Lock Forearm] IV Catheter Type [Right Hand] INT / Saline Lock IV Catheter Type [Right CVL Femoral] IV Catheter Type [Left INT / Saline Lock External Jugular] Active Medications - Current Medications Current Medications: Generic Name Dose Route Start Last Admin Trade Name Freq PRN Reason Stop Dose Admin Acetaminophen 650 mg 07/04/19 04:24 08/05/19 17:40 Tylenol [place] 650 mg Q6H PRN Administration Pain MILD(1-3)/Fever >100.5/MURO Acetaminophen 650 mg 07/10/19 04:00 08/18/19 21:23 Tylenol PO 650 mg Q6HR PRN Administration Pain, Mild (1-3) FEVER Lipase/Protease/Amylase 1 each 07/04/19 10:04 08/11/19 06:[address] 10,500 Unit FEEDTUBE 1 each PRN PRN Administration For Clogged Feeding Tube Aspirin 81 mg 07/05/19 10:00 08/19/19 10:26 Baby Aspirin PO 81 mg QDAY TAMMIE Administration Dextrose 50 ml 07/04/19 06:54 D50w (25gm) Syringe IV Q30MIN PRN Hypoglycemia Protocol Docusate Sodium 100 mg 08/14/19 14:00 Colace PO BID PRN CONSTIPATION Enoxaparin Sodium 40 mg 07/24/19 10:00 08/19/19 10:26 Enoxaparin SUB-Q 40 mg QDAY@1000 TAMMIE Administration Famotidine 20 mg 07/23/19 22:00 08/19/19 10:26 Pepcid PO 20 mg BID TAMMIE Administration Fentanyl 50 mcg 07/21/19 15:18 08/09/19 17:44 Sublimaze IV 50 mcg Q10MIN PRN Administration ANALGESIA Fentanyl 25 mcg 08/03/19 11:00 08/18/19 10:59 Duragesic TD 25 mcg Q3D TAMMIE Administration Folic Acid 1 mg 07/05/19 10:00 08/19/19 10:26 Folvite PO 1 mg QDAY TAMMIE Administration Glycopyrrolate 1 mg 08/16/19 14:00 08/19/19 10:26 Robinul PO 1 mg TID TAMMIE Administration Hydrophilic Ointment 1 applic 07/03/19 19:56 07/05/19 17:42 Vaseline Lip Therapy TP 1 applic Q2HR PRN Administration Dry Lips Norepinephrine 4 mg in 250 mls @ 7.5 mls/hr 07/03/19 23:00 07/20/19 01:00 Levophed Drip 4 Mg/Ns 250 Ml IV Infused TITR TAMMIE Titration Protocol 2 MCG/MIN Levofloxacin/Dextrose 750 mg in 150 mls @ 100 mls/hr 08/19/19 12:00 Levaquin 750mg/150ml IV Q24HR [facility] Protocol Insulin Human Lispro 0 unit 07/07/19 12:00 08/19/19 09:35 Humalog SUB-Q Not Given Q6HR [facility] [facility] Protocol Levetiracetam 750 mg 07/06/19 11:00 08/19/19 10:26 Keppra FEEDTUBE 750 mg Q12HR TAMMIE Administration Metoprolol Tartrate 5 mg 07/12/19 15:08 08/11/19 14:47 Metoprolol IV 5 mg Q6HR PRN Administration Tachyarrhythmias Multi-Ingred Cream/Lotion/Oil/Oint 1 applic 07/03/19 19:56 07/05/19 13:19 Artificial Tears Ophth Oint OU 1 applic Q4HR PRN Administration Dry Eye(s) Naloxone HCl 0.1 mg 07/04/19 04:24 Naloxone IV Q2MIN PRN Res Rate </= 8 or 02 SAT < 92% Oxycodone/Acetaminophen 1 tab 07/19/19 14:17 08/18/19 22:52 Percocet 5/325 PO 1 tab Q4H PRN Administration Pain, Moderate (4-6) Scopolamine 1 each 07/10/19 11:00 08/18/19 10:58 Transderm-Scop TD 1 each Q3D TAMMIE Administration Simple Syrup 15 ml 07/04/19 10:04 07/10/19 21:56 Simple Syrup FEEDTUBE 15 ml PRN PRN Administration Hypoglycemia Simple Syrup 30 ml 07/04/19 10:04 Simple Syrup FEEDTUBE PRN PRN Hypoglycemia Sodium Bicarbonate 325 mg 07/04/19 10:04 07/20/19 10:20 Sodium Bicarbonate FEEDTUBE 325 mg PRN PRN Administration For Clogged Feeding Tube Sodium Chloride 10 ml 07/04/19 10:00 08/19/19 10:27 Sodium Chloride Flush Syringe 10 Ml IV 10 ml BID TAMMIE Administration Sodium Chloride 10 ml 07/04/19 04:24 Sodium Chloride Flush Syringe 10 Ml IV PRN PRN LINE FLUSH Sodium Hypochlorite 1 applic 07/10/19 14:00 08/19/19 10:28 Dakin's Half Strength TP 1 appful BID TAMMIE Administration Nutrition/Malnutrition Assess - Dietary Evaluation Nutrition/Malnutrition Findings: Nutrition Notes Start: 07/04/19 09:17 Freq: Status: Active Protocol: Document 08/15/19 08:14 LP (Rec: 08/15/19 08:16 LP [id number]) Nutrition Notes Initial or Follow up Reassessment Current Diagnosis Acute Kidney Injury,COPD, Decubitus(Pressure Ulcer), Diabetes,Hypertension Other Pertinent Diagnosis COVID-19 (+), pneu, seizures, schizophrenia, Buttock and R foot PU, Current Diet Osmolite 1.5 at 55ml/hr Labs/Tests Reviewed Pertinent Medications Reviewed Height 5 ft 11 in Weight 78.7 kg [place] Body Weight (kg) 78.18 BMI 24.2 Weight Status Overweight Subjective/Other Information Pt continues tolerating TF at goal rate. Percent of energy/protein needs met: 97%/75% Burn Absent Trauma Absent Current % PO Negligible Minimum of two criteria No physical signs of malnutrition #2 Nutrition Diagnosis Increased nutrient needs ( specify in comment below) Diagnosis Progress(for reassessment Continues documentation) #1 Nutrition Diagnosis Inadequate oral intake Diagnosis Progress(for reassessment Continues documentation) Is patient on ventilator? Yes Is Patient Ambulatory and/or Out of Bed No REE-([facility]-confined to bed) [phone] Calculation Used for Recommendations [facility] Additional Notes Protein: 110-184 (1.2-2g/kg) Fluid: 1 ml/kcal or per MD Nutrition Intervention Change Diet Order: Continue TF Nutrition Support: Osmolite 1.5 at 55ml/hr Flush 150ml q4h Kcal 1,980 Protein (gm) 83 Fluid (mL) 1,006 Goal #1 TF tolerance Goal #2 TF to meet at least 75% of energy and protein needs Anticipated Discharge Needs: unable to determine at this time Follow-Up By: 08/22/19 Additional Comments Follow for stable TF
--- NOTE | 2019-08-19 12:31 | Progress Note ---
Assessment and Plan Acute hypoxemic respiratory failure on MVS Severe sepsis with Shock. Bilateral Pneumonia. PUI coronavirus-19 infection. Acute possibly on chronic encephalopathy. Oropharyngeal dysphagia. Anemia. Decubitus ulcers Diabetes type 2. Hypertension. Leukocytosis. Anemia that is microcytic. Elevated serum transaminases. [id number] metabolic acidosis. Lactic acidosis. Severe protein-calorie malnutrition ( has advised us she wants a tracheostomy and continued aggressive care) - follow repeat COVID-19 - prn CXR's and ABG's at this point - continue daily SBT's; if he shows significant tolerance of SBT's over an ex tended few day periods a trial of extubation may still be considered - no new issues otherwise, continue care as below otherwise - surgery evaluation ongoing for tracheostomy placement (await negative COVID test) - continue care as below otherwise - continue fentanyl gtt for pain control / sedation - continue to wean supplemental oxygen for target O2 sat's > 90% acutely - continue daily SAT's and SBT assessment as tolerated - VAP bundle addressed - continue lung protective strategies - continue bronchodilators with pulmonary hygiene per RT - wean per pulmonary driven protocols otherwise - prn Levophed for target MAP > 65 mmHg - continue airborne and contact COVID-19 precautions - COVID-19 test positive - complete anti-infectives and de-escalate per ID recommendations - continue wound care per WCT - sedation prn for target RASS 0 to -1 - accuchecks with glycemic control per SSI (While critically ill target blood glucose of 140-180 mg/dL; avoid hypoglycemia) - to avoid benzodiazepine's, reduce the possibility of delirium - prn analgesia per CPOT score - Maintenance of sleep-wake cycle, avoid delirium - continue enteral nutritional support at goal rate as tolerated - G.I. & VTE prophylaxis - PT/OT/ROM exercises - continue mobility protocols for pressure ulcer prophylaxis - Monitor hemodynamics closely - continue other care per attending / other consultants - discharge planning ongoing concurrently .... Re-evaluate in am & prn CONDITION: CRITICAL PROGNOSIS: GUARDED CODE STATUS: FULL CODE The high probability of a clinically significant, sudden or life-threatening deterioration of the [respiratory & cardiovascular] system(s) required my full and direct attention, intervention and personal management. The aggregate critical care time was [35] minutes without overlap. Time includes spent on; [x] Data Review and interpretation [x] Patient assessment and monitoring of vital signs [x] Documentation [x] Medication orders and management Subjective Date of service: 08/19/19 Principal diagnosis: Bilateral pneumonia, severe sepsis with septic shock, encephalopathy Interval history: Patient is seen today for: Ac hypoxemic Resp failure on MVS; Severe sepsis with Shock; Ivan. Pneumonia; PUI coronavirus-19 infection. Seen and examined at bedside; 24hour events reviewed; nursing and respiratory care staff consulted; no adverse overnight events reported to me; resting in bed; remains on MVS; AMS is persistent; inconsistently tolerating PSV trials; repeat COVID 19 test pending Objective Vital Signs - 12hr 08/19/19 08/19/19 08/19/19 01:00 01:45 02:00 Temperature Pulse Rate 127 H 119 H 119 H Pulse Rate [ 109 H From Monitor] Respiratory 22 Rate Blood Pressure 110/63 111/59 O2 Sat by Pulse 99 100 100 Oximetry 08/19/19 08/19/19 08/19/19 03:00 04:00 04:28 Temperature 100.8 F H Pulse Rate 109 H 98 H 102 H Pulse Rate [ 109 H From Monitor] Respiratory 22 Rate Blood Pressure 100/57 115/57 124/66 O2 Sat by Pulse 99 99 99 Oximetry 08/19/19 08/19/19 08/19/19 05:00 05:40 06:00 Temperature Pulse Rate 102 H 102 H 109 H Pulse Rate [ From Monitor] Respiratory 22 Rate Blood Pressure 120/69 124/65 O2 Sat by Pulse 100 100 97 Oximetry 08/19/19 08/19/19 08/19/19 07:00 07:55 08:00 Temperature 98.8 F Pulse Rate 111 H 116 H Pulse Rate [ From Monitor] Respiratory 22 Rate Blood Pressure 130/71 154/83 O2 Sat by Pulse 98 96 Oximetry 08/19/19 08/19/19 11:33 12:00 Temperature 100.4 F H Pulse Rate 114 H Pulse Rate [ From Monitor] Respiratory 32 H Rate Blood Pressure 154/83 O2 Sat by Pulse 96 Oximetry Constitutional: appears uncomfortable, other (eelderly and chronically ill looking AAM, normocep[krystina;ic with mildly increased respiratory effort at rest) Eyes: non-icteric ENT: oropharynx moist, other (ETT 24 cm RUTH) Neck: supple, no lymphadenopathy, no JVD Effort: mildly labored Ascultation: Bilateral: diminished breath sounds, rhonchi Percussion: Bilateral: not dull Cardiovascular: regular rate and rhythm Gastrointestinal: normoactive bowel sounds, soft, non-tender, non-distended, other (+ PEG tube with mild TF leakage) Integumentary: decubitus ulcer (sacral) Extremities: no cyanosis, no edema, pink and warm, pulses normal Neurologic: pupils equal and round, unable to assess Psychiatric: other (Unable to assess re: AMS) CBC and BMP: 08/23/19 06:00 08/20/19 Unknown ABG, PT/INR, D-dimer: ABG ABG pH 7.405 pH Units (7.350-7.450) 08/17/19 20: ABG pCO2 45.3 mm Hg 08/17/19 20:20 ABG pO2 84.2 mm Hg (80.0-90.0) 08/17/19 20:20 ABG O2 Saturation 96.9 % (95.0-99.0) 08/17/19 20:20 PT/INR, D-dimer PT 16.0 Sec. (12.2-14.9) H 07/03/19 22:20 INR 1.26 (0.87-1.13) H 07/03/19 22:20 D-Dimer 1808.06 ng/mlDDU (0-234) H 08/07/19 10:24 Abnormal lab findings: Abnormal Labs 07/03/19 07/03/19 07/03/19 19:57 21:10 21:13 WBC RBC Hgb Hct MCV MCH MCHC RDW Plt Count Lymph % (Auto) Payne % (Auto) Lymph # Payne # Baso # Seg Neutrophils % Seg Neuts % (Manual) Lymphocytes % (Manual) Monocytes % (Manual) Basophils % (Manual) Nucleated RBC % Seg Neutrophils # Seg Neutrophils # Man Lymphocytes # (Manual) Monocytes # (Manual) Eosinophils # (Manual) Basophils # (Manual) PT INR D-Dimer ABG pH 7.238 L ABG pO2 210.8 H ABG HCO3 15.4 L ABG O2 Saturation 99.2 H ABG Base Excess -11.1 L ABG Hemoglobin 8.0 L Oxyhemoglobin Sodium 124 L Potassium Chloride 92.9 L Carbon Dioxide 10 L BUN 23 H Creatinine 0.5 L Glucose 118 H POC Glucose Lactic Acid Calcium 7.0 L Magnesium Iron TIBC Ferritin AST 70 H ALT 88 H Lactate Dehydrogenase Troponin T 0.032 H C-Reactive Protein Total Protein 5.0 L Albumin 1.8 L Prealbumin Cholesterol 47 L LDL Cholesterol Direct 25 L HDL Cholesterol 20 L Urine WBC (Auto) 12.0 H Vancomycin Trough Coronavirus (PCR) Crossmatch 07/03/19 07/03/19 07/03/19 22:20 22:20 22:20 WBC 30.5 H RBC 2.96 L Hgb 7.7 L Hct 23.9 L MCV 81 L MCH 26 L MCHC RDW 18.6 H Plt Count 459 H Lymph % (Auto) Payne % (Auto) Lymph # Payne # Baso # Seg Neutrophils % Seg Neuts % (Manual) 93.0 H Lymphocytes % (Manual) 0.5 L Monocytes % (Manual) Basophils % (Manual) Nucleated RBC % Seg Neutrophils # Seg Neutrophils # Man 28.4 H Lymphocytes # (Manual) 0.2 L Monocytes # (Manual) Eosinophils # (Manual) Basophils # (Manual) PT 16.0 H INR 1.26 H D-Dimer ABG pH ABG pO2 ABG HCO3 ABG O2 Saturation ABG Base Excess ABG Hemoglobin Oxyhemoglobin Sodium Potassium Chloride Carbon Dioxide BUN Creatinine Glucose POC Glucose Lactic Acid 6.90 H* Calcium Magnesium Iron TIBC Ferritin AST ALT Lactate Dehydrogenase Troponin T C-Reactive Protein Total Protein Albumin Prealbumin Cholesterol LDL Cholesterol Direct HDL Cholesterol Urine WBC (Auto) Vancomycin Trough Coronavirus (PCR) Crossmatch 07/03/19 07/04/19 07/04/19 23:58 05:15 07:05 WBC 17.1 H RBC 3.22 L Hgb 8.3 L Hct 25.4 L MCV 79 L MCH 26 L MCHC RDW 18.6 H Plt Count Lymph % (Auto) Payne % (Auto) Lymph # Payne # Baso # Seg Neutrophils % Seg Neuts % (Manual) 74.0 H Lymphocytes % (Manual) 0 L Monocytes % (Manual) Basophils % (Manual) Nucleated RBC % Seg Neutrophils # Seg Neutrophils # Man 12.7 H Lymphocytes # (Manual) 0.0 L Monocytes # (Manual) Eosinophils # (Manual) Basophils # (Manual) PT INR D-Dimer ABG pH 7.310 L ABG pO2 73.2 L ABG HCO3 17.8 L ABG O2 Saturation 93.8 L ABG Base Excess -7.7 L ABG Hemoglobin 9.6 L Oxyhemoglobin 92.3 L Sodium Potassium Chloride Carbon Dioxide BUN Creatinine Glucose POC Glucose Lactic Acid 7.10 H* Calcium Magnesium Iron TIBC Ferritin AST ALT Lactate Dehydrogenase Troponin T C-Reactive Protein Total Protein Albumin Prealbumin Cholesterol LDL Cholesterol Direct HDL Cholesterol Urine WBC (Auto) Vancomycin Trough Coronavirus (PCR) Crossmatch 07/04/19 07/04/19 07/04/19 07:05 07:05 07:05 WBC RBC Hgb Hct MCV MCH MCHC RDW Plt Count Lymph % (Auto) Payne % (Auto) Lymph # Payne # Baso # Seg Neutrophils % Seg Neuts % (Manual) Lymphocytes % (Manual) Monocytes % (Manual) Basophils % (Manual) Nucleated RBC % Seg Neutrophils # Seg Neutrophils # Man Lymphocytes # (Manual) Monocytes # (Manual) Eosinophils # (Manual) Basophils # (Manual) PT INR D-Dimer ABG pH ABG pO2 ABG HCO3 ABG O2 Saturation ABG Base Excess ABG Hemoglobin Oxyhemoglobin Sodium 120 L Potassium 5.1 H Chloride 90.0 L Carbon Dioxide 14 L BUN 26 H Creatinine 0.5 L Glucose POC Glucose Lactic Acid 3.30 H* Calcium 8.0 L Magnesium Iron 9 L TIBC 97 L Ferritin AST 73 H ALT 91 H Lactate Dehydrogenase Troponin T C-Reactive Protein Total Protein 5.5 L Albumin 2.0 L Prealbumin Cholesterol LDL Cholesterol Direct HDL Cholesterol Urine WBC (Auto) Vancomycin Trough Coronavirus (PCR) Crossmatch 07/04/19 07/04/19 07/04/19 09:39 09:39 09:39 WBC RBC Hgb Hct MCV MCH MCHC RDW Plt Count Lymph % (Auto) Payne % (Auto) Lymph # Payne # Baso # Seg Neutrophils % Seg Neuts % (Manual) Lymphocytes % (Manual) Monocytes % (Manual) Basophils % (Manual) Nucleated RBC % Seg Neutrophils # Seg Neutrophils # Man Lymphocytes # (Manual) Monocytes # (Manual) Eosinophils # (Manual) Basophils # (Manual) PT INR D-Dimer 1419.14 H ABG pH ABG pO2 ABG HCO3 ABG O2 Saturation ABG Base Excess ABG Hemoglobin Oxyhemoglobin Sodium Potassium Chloride Carbon Dioxide BUN Creatinine Glucose POC Glucose Lactic Acid Calcium Magnesium Iron TIBC Ferritin 1719.0 H AST ALT Lactate Dehydrogenase 234 H Troponin T C-Reactive Protein 15.50 H Total Protein Albumin Prealbumin Cholesterol LDL Cholesterol Direct HDL Cholesterol Urine WBC (Auto) Vancomycin Trough Coronavirus (PCR) Crossmatch 07/04/19 07/04/19 07/04/19 10:09 18:08 18:28 WBC RBC Hgb Hct MCV MCH MCHC RDW Plt Count Lymph % (Auto) Payne % (Auto) Lymph # Payne # Baso # Seg Neutrophils % Seg Neuts % (Manual) Lymphocytes % (Manual) Monocytes % (Manual) Basophils % (Manual) Nucleated RBC % Seg Neutrophils # Seg Neutrophils # Man Lymphocytes # (Manual) Monocytes # (Manual) Eosinophils # (Manual) Basophils # (Manual) PT INR D-Dimer ABG pH ABG pO2 ABG HCO3 ABG O2 Saturation ABG Base Excess ABG Hemoglobin Oxyhemoglobin Sodium 117 L* Potassium 5.6 H Chloride 90.3 L Carbon Dioxide 16 L BUN 28 H Creatinine 0.5 L Glucose 58 L POC Glucose 65 L Lactic Acid Calcium 8.2 L Magnesium Iron TIBC Ferritin AST ALT Lactate Dehydrogenase Troponin T C-Reactive Protein Total Protein Albumin Prealbumin Cholesterol LDL Cholesterol Direct HDL Cholesterol Urine WBC (Auto) Vancomycin Trough Coronavirus (PCR) Positive A Crossmatch 07/04/19 07/04/19 07/04/19 23:45 Unknown Unknown WBC RBC Hgb Hct MCV MCH MCHC RDW Plt Count Lymph % (Auto) Payne % (Auto) Lymph # Payne # Baso # Seg Neutrophils % Seg Neuts % (Manual) Lymphocytes % (Manual) Monocytes % (Manual) Basophils % (Manual) Nucleated RBC % Seg Neutrophils # Seg Neutrophils # Man Lymphocytes # (Manual) Monocytes # (Manual) Eosinophils # (Manual) Basophils # (Manual) PT INR D-Dimer 759.77 H ABG pH ABG pO2 ABG HCO3 ABG O2 Saturation ABG Base Excess ABG Hemoglobin Oxyhemoglobin Sodium 122 L Potassium Chloride 93.0 L Carbon Dioxide 19 L BUN 27 H Creatinine 0.5 L Glucose POC Glucose Lactic Acid Calcium 8.3 L Magnesium Iron TIBC Ferritin 1301.0 H AST ALT Lactate Dehydrogenase Troponin T C-Reactive Protein Total Protein Albumin Prealbumin Cholesterol LDL Cholesterol Direct HDL Cholesterol Urine WBC (Auto) Vancomycin Trough Coronavirus (PCR) Crossmatch 07/04/19 07/05/19 07/05/19 Unknown 03:20 04:00 WBC RBC Hgb Hct MCV MCH MCHC RDW Plt Count Lymph % (Auto) Payne % (Auto) Lymph # Payne # Baso # Seg Neutrophils % Seg Neuts % (Manual) Lymphocytes % (Manual) Monocytes % (Manual) Basophils % (Manual) Nucleated RBC % Seg Neutrophils # Seg Neutrophils # Man Lymphocytes # (Manual) Monocytes # (Manual) Eosinophils # (Manual) Basophils # (Manual) PT INR D-Dimer ABG pH ABG pO2 60.6 L ABG HCO3 ABG O2 Saturation 93.5 L ABG Base Excess -2.4 L ABG Hemoglobin 6.9 L Oxyhemoglobin 92.0 L Sodium 125 L Potassium Chloride 92.6 L Carbon Dioxide 19 L BUN 24 H Creatinine 0.6 L Glucose POC Glucose Lactic Acid Calcium 8.2 L Magnesium 1.40 L Iron TIBC Ferritin AST ALT Lactate Dehydrogenase 242 H Troponin T C-Reactive Protein 16.70 H Total Protein Albumin Prealbumin Cholesterol LDL Cholesterol Direct HDL Cholesterol Urine WBC (Auto) Vancomycin Trough Coronavirus (PCR) Crossmatch 07/05/19 07/05/19 07/05/19 10:11 16:15 17:54 WBC 46.4 H* RBC 2.77 L Hgb 7.2 L Hct 21.9 L MCV 79 L MCH 26 L MCHC RDW 19.0 H Plt Count Lymph % (Auto) Payne % (Auto) Lymph # Payne # Baso # Seg Neutrophils % Seg Neuts % (Manual) 82.0 H Lymphocytes % (Manual) 1.0 L Monocytes % (Manual) Basophils % (Manual) Nucleated RBC % Seg Neutrophils # Seg Neutrophils # Man 38.0 H Lymphocytes # (Manual) 0.5 L Monocytes # (Manual) Eosinophils # (Manual) Basophils # (Manual) PT INR D-Dimer ABG pH ABG pO2 ABG HCO3 ABG O2 Saturation ABG Base Excess ABG Hemoglobin Oxyhemoglobin Sodium Potassium Chloride Carbon Dioxide BUN Creatinine Glucose POC Glucose 69 L Lactic Acid Calcium Magnesium Iron TIBC Ferritin AST ALT Lactate Dehydrogenase Troponin T C-Reactive Protein Total Protein Albumin Prealbumin Cholesterol LDL Cholesterol Direct HDL Cholesterol Urine WBC (Auto) Vancomycin Trough 23.2 H Coronavirus (PCR) Crossmatch 07/05/19 07/06/19 07/06/19 19:58 00:27 00:27 WBC RBC Hgb Hct MCV MCH MCHC RDW Plt Count Lymph % (Auto) Payne % (Auto) Lymph # Payne # Baso # Seg Neutrophils % Seg Neuts % (Manual) Lymphocytes % (Manual) Monocytes % (Manual) Basophils % (Manual) Nucleated RBC % Seg Neutrophils # Seg Neutrophils # Man Lymphocytes # (Manual) Monocytes # (Manual) Eosinophils # (Manual) Basophils # (Manual) PT INR D-Dimer 1333.22 H ABG pH ABG pO2 ABG HCO3 ABG O2 Saturation ABG Base Excess ABG Hemoglobin Oxyhemoglobin Sodium 127 L Potassium Chloride Carbon Dioxide BUN Creatinine Glucose POC Glucose Lactic Acid Calcium Magnesium Iron TIBC Ferritin 977.1 H AST ALT Lactate Dehydrogenase Troponin T C-Reactive Protein Total Protein Albumin Prealbumin Cholesterol LDL Cholesterol Direct HDL Cholesterol Urine WBC (Auto) Vancomycin Trough Coronavirus (PCR) Crossmatch 07/06/19 07/06/19 07/06/19 00:27 02:00 02:56 WBC RBC Hgb Hct MCV MCH MCHC RDW Plt Count Lymph % (Auto) Payne % (Auto) Lymph # Payne # Baso # Seg Neutrophils % Seg Neuts % (Manual) Lymphocytes % (Manual) Monocytes % (Manual) Basophils % (Manual) Nucleated RBC % Seg Neutrophils # Seg Neutrophils # Man Lymphocytes # (Manual) Monocytes # (Manual) Eosinophils # (Manual) Basophils # (Manual) PT INR D-Dimer ABG pH ABG pO2 70.3 L ABG HCO3 ABG O2 Saturation 94.8 L ABG Base Excess ABG Hemoglobin 8.0 L Oxyhemoglobin 93.2 L Sodium Potassium Chloride Carbon Dioxide BUN Creatinine Glucose POC Glucose 117 H Lactic Acid Calcium Magnesium Iron TIBC Ferritin AST ALT Lactate Dehydrogenase 236 H Troponin T C-Reactive Protein 22.90 H Total Protein Albumin Prealbumin Cholesterol LDL Cholesterol Direct HDL Cholesterol Urine WBC (Auto) Vancomycin Trough Coronavirus (PCR) Crossmatch 07/06/19 07/06/19 07/06/19 03:49 03:49 07:40 WBC 38.8 H RBC 2.51 L Hgb 6.7 L Hct 19.9 L* MCV 79 L MCH 27 L MCHC RDW 19.2 H Plt Count Lymph % (Auto) Payne % (Auto) Lymph # Payne # Baso # Seg Neutrophils % Seg Neuts % (Manual) 90.5 H Lymphocytes % (Manual) 1.0 L Monocytes % (Manual) Basophils % (Manual) Nucleated RBC % Seg Neutrophils # Seg Neutrophils # Man 35.1 H Lymphocytes # (Manual) 0.4 L Monocytes # (Manual) Eosinophils # (Manual) Basophils # (Manual) PT INR D-Dimer ABG pH ABG pO2 ABG HCO3 ABG O2 Saturation ABG Base Excess ABG Hemoglobin Oxyhemoglobin Sodium 131 L Potassium Chloride 96.9 L Carbon Dioxide 18 L BUN 23 H Creatinine 0.5 L Glucose POC Glucose Lactic Acid Calcium 8.0 L Magnesium Iron TIBC Ferritin AST ALT Lactate Dehydrogenase Troponin T C-Reactive Protein Total Protein Albumin Prealbumin Cholesterol LDL Cholesterol Direct HDL Cholesterol Urine WBC (Auto) Vancomycin Trough Coronavirus (PCR) Crossmatch See Detail 07/06/19 07/06/19 07/06/19 12:38 14:39 20:00 WBC RBC Hgb Hct MCV MCH MCHC RDW Plt Count Lymph % (Auto) Payne % (Auto) Lymph # Payne # Baso # Seg Neutrophils % Seg Neuts % (Manual) Lymphocytes % (Manual) Monocytes % (Manual) Basophils % (Manual) Nucleated RBC % Seg Neutrophils # Seg Neutrophils # Man Lymphocytes # (Manual) Monocytes # (Manual) Eosinophils # (Manual) Basophils # (Manual) PT INR D-Dimer ABG pH ABG pO2 ABG HCO3 ABG O2 Saturation ABG Base Excess ABG Hemoglobin Oxyhemoglobin Sodium Potassium Chloride Carbon Dioxide BUN Creatinine Glucose POC Glucose 112 H 111 H 140 H Lactic Acid Calcium Magnesium Iron TIBC Ferritin AST ALT Lactate Dehydrogenase Troponin T C-Reactive Protein Total Protein Albumin Prealbumin Cholesterol LDL Cholesterol Direct HDL Cholesterol Urine WBC (Auto) Vancomycin Trough Coronavirus (PCR) Crossmatch 07/06/19 07/06/19 07/07/19 22:43 22:56 02:20 WBC RBC Hgb 7.9 L Hct 23.1 L MCV MCH MCHC RDW Plt Count Lymph % (Auto) Payne % (Auto) Lymph # Payne # Baso # Seg Neutrophils % Seg Neuts % (Manual) Lymphocytes % (Manual) Monocytes % (Manual) Basophils % (Manual) Nucleated RBC % Seg Neutrophils # Seg Neutrophils # Man Lymphocytes # (Manual) Monocytes # (Manual) Eosinophils # (Manual) Basophils # (Manual) PT INR D-Dimer ABG pH ABG pO2 ABG HCO3 ABG O2 Saturation ABG Base Excess ABG Hemoglobin Oxyhemoglobin Sodium Potassium Chloride Carbon Dioxide BUN Creatinine Glucose POC Glucose 122 H 149 H Lactic Acid Calcium Magnesium Iron TIBC Ferritin AST ALT Lactate Dehydrogenase Troponin T C-Reactive Protein Total Protein Albumin Prealbumin Cholesterol LDL Cholesterol Direct HDL Cholesterol Urine WBC (Auto) Vancomycin Trough Coronavirus (PCR) Crossmatch 07/07/19 07/07/19 07/07/19 04:35 05:27 05:34 WBC 23.1 H RBC 3.00 L Hgb 8.1 L Hct 24.2 L MCV 81 L MCH 27 L MCHC RDW 20.6 H Plt Count Lymph % (Auto) Payne % (Auto) Lymph # Payne # Baso # Seg Neutrophils % Seg Neuts % (Manual) 90.0 H Lymphocytes % (Manual) 2.0 L Monocytes % (Manual) Basophils % (Manual) Nucleated RBC % Seg Neutrophils # Seg Neutrophils # Man 20.8 H Lymphocytes # (Manual) 0.5 L Monocytes # (Manual) Eosinophils # (Manual) Basophils # (Manual) PT INR D-Dimer ABG pH ABG pO2 65.8 L ABG HCO3 ABG O2 Saturation 92.2 L ABG Base Excess ABG Hemoglobin 8.3 L Oxyhemoglobin 90.6 L Sodium Potassium Chloride Carbon Dioxide BUN Creatinine Glucose POC Glucose 132 H Lactic Acid Calcium Magnesium Iron TIBC Ferritin AST ALT Lactate Dehydrogenase Troponin T C-Reactive Protein Total Protein Albumin Prealbumin Cholesterol LDL Cholesterol Direct HDL Cholesterol Urine WBC (Auto) Vancomycin Trough Coronavirus (PCR) Crossmatch 07/07/19 07/07/19 07/07/19 05:34 11:50 15:58 WBC RBC Hgb 8.1 L Hct 24.2 L MCV MCH MCHC RDW Plt Count Lymph % (Auto) Payne % (Auto) Lymph # Payne # Baso # Seg Neutrophils % Seg Neuts % (Manual) Lymphocytes % (Manual) Monocytes % (Manual) Basophils % (Manual) Nucleated RBC % Seg Neutrophils # Seg Neutrophils # Man Lymphocytes # (Manual) Monocytes # (Manual) Eosinophils # (Manual) Basophils # (Manual) PT INR D-Dimer ABG pH ABG pO2 ABG HCO3 ABG O2 Saturation ABG Base Excess ABG Hemoglobin Oxyhemoglobin Sodium 135 L Potassium 3.3 L Chloride Carbon Dioxide 20 L BUN 27 H Creatinine 0.6 L Glucose 121 H POC Glucose 123 H Lactic Acid Calcium 8.0 L Magnesium Iron TIBC Ferritin AST ALT Lactate Dehydrogenase Troponin T C-Reactive Protein Total Protein Albumin Prealbumin Cholesterol LDL Cholesterol Direct HDL Cholesterol Urine WBC (Auto) Vancomycin Trough Coronavirus (PCR) Crossmatch 07/07/19 07/07/19 07/07/19 17:42 22:00 23:53 WBC RBC Hgb 8.0 L Hct 23.4 L MCV MCH MCHC RDW Plt Count Lymph % (Auto) Payne % (Auto) Lymph # Payne # Baso # Seg Neutrophils % Seg Neuts % (Manual) Lymphocytes % (Manual) Monocytes % (Manual) Basophils % (Manual) Nucleated RBC % Seg Neutrophils # Seg Neutrophils # Man Lymphocytes # (Manual) Monocytes # (Manual) Eosinophils # (Manual) Basophils # (Manual) PT INR D-Dimer ABG pH ABG pO2 ABG HCO3 ABG O2 Saturation ABG Base Excess ABG Hemoglobin Oxyhemoglobin Sodium Potassium Chloride Carbon Dioxide BUN Creatinine Glucose POC Glucose 107 H 117 H Lactic Acid Calcium Magnesium Iron TIBC Ferritin AST ALT Lactate Dehydrogenase Troponin T C-Reactive Protein Total Protein Albumin Prealbumin Cholesterol LDL Cholesterol Direct HDL Cholesterol Urine WBC (Auto) Vancomycin Trough Coronavirus (PCR) Crossmatch 07/08/19 07/08/19 07/08/19 00:45 00:45 00:45 WBC RBC Hgb Hct MCV MCH MCHC RDW Plt Count Lymph % (Auto) Payne % (Auto) Lymph # Payne # Baso # Seg Neutrophils % Seg Neuts % (Manual) Lymphocytes % (Manual) Monocytes % (Manual) Basophils % (Manual) Nucleated RBC % Seg Neutrophils # Seg Neutrophils # Man Lymphocytes # (Manual) Monocytes # (Manual) Eosinophils # (Manual) Basophils # (Manual) PT INR D-Dimer 1142.18 H ABG pH ABG pO2 ABG HCO3 ABG O2 Saturation ABG Base Excess ABG Hemoglobin Oxyhemoglobin Sodium Potassium Chloride Carbon Dioxide BUN Creatinine Glucose POC Glucose Lactic Acid Calcium Magnesium Iron TIBC Ferritin 839.0 H AST ALT Lactate Dehydrogenase 253 H Troponin T C-Reactive Protein 18.90 H Total Protein Albumin Prealbumin Cholesterol LDL Cholesterol Direct HDL Cholesterol Urine WBC (Auto) Vancomycin Trough Coronavirus (PCR) Crossmatch 07/08/19 07/08/19 07/08/19 04:30 05:11 12:02 WBC RBC Hgb Hct MCV MCH MCHC RDW Plt Count Lymph % (Auto) Payne % (Auto) Lymph # Payne # Baso # Seg Neutrophils % Seg Neuts % (Manual) Lymphocytes % (Manual) Monocytes % (Manual) Basophils % (Manual) Nucleated RBC % Seg Neutrophils # Seg Neutrophils # Man Lymphocytes # (Manual) Monocytes # (Manual) Eosinophils # (Manual) Basophils # (Manual) PT INR D-Dimer ABG pH ABG pO2 66.0 L ABG HCO3 ABG O2 Saturation 92.3 L ABG Base Excess ABG Hemoglobin 7.7 L Oxyhemoglobin 90.7 L Sodium Potassium Chloride Carbon Dioxide BUN Creatinine Glucose POC Glucose 108 H 153 H Lactic Acid Calcium Magnesium Iron TIBC Ferritin AST ALT Lactate Dehydrogenase Troponin T C-Reactive Protein Total Protein Albumin Prealbumin Cholesterol LDL Cholesterol Direct HDL Cholesterol Urine WBC (Auto) Vancomycin Trough Coronavirus (PCR) Crossmatch 07/08/19 07/08/19 07/08/19 16:15 18:22 23:35 WBC RBC Hgb Hct MCV MCH MCHC RDW Plt Count Lymph % (Auto) Payne % (Auto) Lymph # Payne # Baso # Seg Neutrophils % Seg Neuts % (Manual) Lymphocytes % (Manual) Monocytes % (Manual) Basophils % (Manual) Nucleated RBC % Seg Neutrophils # Seg Neutrophils # Man Lymphocytes # (Manual) Monocytes # (Manual) Eosinophils # (Manual) Basophils # (Manual) PT INR D-Dimer ABG pH ABG pO2 ABG HCO3 ABG O2 Saturation ABG Base Excess ABG Hemoglobin Oxyhemoglobin Sodium 134 L Potassium 3.3 L Chloride Carbon Dioxide 21 L BUN 27 H Creatinine 0.6 L Glucose 146 H POC Glucose 134 H 133 H Lactic Acid Calcium Magnesium Iron TIBC Ferritin AST ALT Lactate Dehydrogenase Troponin T C-Reactive Protein Total Protein Albumin Prealbumin Cholesterol LDL Cholesterol Direct HDL Cholesterol Urine WBC (Auto) Vancomycin Trough Coronavirus (PCR) Crossmatch 07/09/19 07/09/19 07/09/19 04:30 04:30 05:00 WBC 18.9 H RBC 2.77 L Hgb 7.4 L Hct 22.8 L MCV 82 L MCH 27 L MCHC RDW 20.9 H Plt Count 130 L Lymph % (Auto) Payne % (Auto) Lymph # Payne # Baso # Seg Neutrophils % Seg Neuts % (Manual) 84.0 H Lymphocytes % (Manual) 0 L Monocytes % (Manual) Basophils % (Manual) Nucleated RBC % Seg Neutrophils # Seg Neutrophils # Man 15.9 H Lymphocytes # (Manual) 0.0 L Monocytes # (Manual) Eosinophils # (Manual) Basophils # (Manual) PT INR D-Dimer ABG pH ABG pO2 ABG HCO3 ABG O2 Saturation ABG Base Excess ABG Hemoglobin Oxyhemoglobin Sodium Potassium 3.1 L Chloride Carbon Dioxide BUN 26 H Creatinine 0.5 L Glucose 125 H POC Glucose 155 H Lactic Acid Calcium Magnesium Iron TIBC Ferritin AST ALT Lactate Dehydrogenase Troponin T C-Reactive Protein Total Protein Albumin Prealbumin Cholesterol LDL Cholesterol Direct HDL Cholesterol Urine WBC (Auto) Vancomycin Trough Coronavirus (PCR) Crossmatch 07/09/19 07/09/19 07/09/19 05:55 12:22 17:50 WBC RBC Hgb Hct MCV MCH MCHC RDW Plt Count Lymph % (Auto) Payne % (Auto) Lymph # Payne # Baso # Seg Neutrophils % Seg Neuts % (Manual) Lymphocytes % (Manual) Monocytes % (Manual) Basophils % (Manual) Nucleated RBC % Seg Neutrophils # Seg Neutrophils # Man Lymphocytes # (Manual) Monocytes # (Manual) Eosinophils # (Manual) Basophils # (Manual) PT INR D-Dimer ABG pH ABG pO2 62.8 L ABG HCO3 ABG O2 Saturation ABG Base Excess ABG Hemoglobin 6.1 L Oxyhemoglobin 93.9 L Sodium Potassium Chloride Carbon Dioxide BUN Creatinine Glucose POC Glucose 115 H 133 H Lactic Acid Calcium Magnesium Iron TIBC Ferritin AST ALT Lactate Dehydrogenase Troponin T C-Reactive Protein Total Protein Albumin Prealbumin Cholesterol LDL Cholesterol Direct HDL Cholesterol Urine WBC (Auto) Vancomycin Trough Coronavirus (PCR) Crossmatch 07/10/19 07/10/19 07/10/19 00:38 04:00 04:00 WBC RBC Hgb Hct MCV MCH MCHC RDW Plt Count Lymph % (Auto) Payne % (Auto) Lymph # Payne # Baso # Seg Neutrophils % Seg Neuts % (Manual) Lymphocytes % (Manual) Monocytes % (Manual) Basophils % (Manual) Nucleated RBC % Seg Neutrophils # Seg Neutrophils # Man Lymphocytes # (Manual) Monocytes # (Manual) Eosinophils # (Manual) Basophils # (Manual) PT INR D-Dimer ABG pH ABG pO2 ABG HCO3 ABG O2 Saturation ABG Base Excess ABG Hemoglobin Oxyhemoglobin Sodium Potassium Chloride 107.9 H Carbon Dioxide BUN 26 H Creatinine 0.4 L Glucose 137 H POC Glucose 122 H Lactic Acid Calcium Magnesium 1.50 L Iron TIBC Ferritin AST ALT Lactate Dehydrogenase 277 H Troponin T C-Reactive Protein 15.10 H Total Protein Albumin Prealbumin Cholesterol LDL Cholesterol Direct HDL Cholesterol Urine WBC (Auto) Vancomycin Trough Coronavirus (PCR) Crossmatch 07/10/19 07/10/19 07/10/19 04:07 05:21 17:25 WBC RBC Hgb Hct MCV MCH MCHC RDW Plt Count Lymph % (Auto) Payne % (Auto) Lymph # Payne # Baso # Seg Neutrophils % Seg Neuts % (Manual) Lymphocytes % (Manual) Monocytes % (Manual) Basophils % (Manual) Nucleated RBC % Seg Neutrophils # Seg Neutrophils # Man Lymphocytes # (Manual) Monocytes # (Manual) Eosinophils # (Manual) Basophils # (Manual) PT INR D-Dimer ABG pH ABG pO2 65.6 L ABG HCO3 26.3 H ABG O2 Saturation ABG Base Excess ABG Hemoglobin 6.7 L Oxyhemoglobin Sodium Potassium Chloride Carbon Dioxide BUN Creatinine Glucose POC Glucose 144 H 113 H Lactic Acid Calcium Magnesium Iron TIBC Ferritin AST ALT Lactate Dehydrogenase Troponin T C-Reactive Protein Total Protein Albumin Prealbumin Cholesterol LDL Cholesterol Direct HDL Cholesterol Urine WBC (Auto) Vancomycin Trough Coronavirus (PCR) Crossmatch 07/11/19 07/11/19 07/11/19 00:07 05:14 05:25 WBC RBC Hgb Hct MCV MCH MCHC RDW Plt Count Lymph % (Auto) Payne % (Auto) Lymph # Payne # Baso # Seg Neutrophils % Seg Neuts % (Manual) Lymphocytes % (Manual) Monocytes % (Manual) Basophils % (Manual) Nucleated RBC % Seg Neutrophils # Seg Neutrophils # Man Lymphocytes # (Manual) Monocytes # (Manual) Eosinophils # (Manual) Basophils # (Manual) PT INR D-Dimer ABG pH ABG pO2 ABG HCO3 ABG O2 Saturation ABG Base Excess ABG Hemoglobin 5.8 L Oxyhemoglobin Sodium Potassium Chloride 108.0 H Carbon Dioxide BUN 26 H Creatinine 0.4 L Glucose 110 H POC Glucose 121 H Lactic Acid Calcium Magnesium Iron TIBC Ferritin AST ALT Lactate Dehydrogenase Troponin T C-Reactive Protein Total Protein Albumin Prealbumin Cholesterol LDL Cholesterol Direct HDL Cholesterol Urine WBC (Auto) Vancomycin Trough Coronavirus (PCR) Crossmatch 07/11/19 07/11/19 07/11/19 12:27 18:00 23:42 WBC RBC Hgb Hct MCV MCH MCHC RDW Plt Count Lymph % (Auto) Payne % (Auto) Lymph # Payne # Baso # Seg Neutrophils % Seg Neuts % (Manual) Lymphocytes % (Manual) Monocytes % (Manual) Basophils % (Manual) Nucleated RBC % Seg Neutrophils # Seg Neutrophils # Man Lymphocytes # (Manual) Monocytes # (Manual) Eosinophils # (Manual) Basophils # (Manual) PT INR D-Dimer ABG pH ABG pO2 ABG HCO3 ABG O2 Saturation ABG Base Excess ABG Hemoglobin Oxyhemoglobin Sodium Potassium Chloride Carbon Dioxide BUN Creatinine Glucose POC Glucose 158 H 141 H 142 H Lactic Acid Calcium Magnesium Iron TIBC Ferritin AST ALT Lactate Dehydrogenase Troponin T C-Reactive Protein Total Protein Albumin Prealbumin Cholesterol LDL Cholesterol Direct HDL Cholesterol Urine WBC (Auto) Vancomycin Trough Coronavirus (PCR) Crossmatch 07/12/19 07/12/19 07/12/19 04:46 04:46 05:23 WBC 23.6 H RBC 2.51 L Hgb 6.7 L Hct 20.8 L MCV 83 L MCH 27 L MCHC RDW 20.3 H Plt Count Lymph % (Auto) Payne % (Auto) Lymph # Payne # Baso # Seg Neutrophils % Seg Neuts % (Manual) 94.0 H Lymphocytes % (Manual) 4.0 L Monocytes % (Manual) Basophils % (Manual) Nucleated RBC % Seg Neutrophils # Seg Neutrophils # Man 22.2 H Lymphocytes # (Manual) 0.9 L Monocytes # (Manual) Eosinophils # (Manual) Basophils # (Manual) PT INR D-Dimer ABG pH ABG pO2 ABG HCO3 ABG O2 Saturation ABG Base Excess ABG Hemoglobin Oxyhemoglobin Sodium Potassium Chloride 107.1 H Carbon Dioxide BUN 25 H Creatinine 0.4 L Glucose 122 H POC Glucose 118 H Lactic Acid Calcium Magnesium Iron TIBC Ferritin AST ALT Lactate Dehydrogenase Troponin T C-Reactive Protein Total Protein Albumin Prealbumin Cholesterol LDL Cholesterol Direct HDL Cholesterol Urine WBC (Auto) Vancomycin Trough Coronavirus (PCR) Crossmatch 07/12/19 07/12/19 07/12/19 08:49 11:36 18:15 WBC RBC Hgb Hct MCV MCH MCHC RDW Plt Count Lymph % (Auto) Payne % (Auto) Lymph # Payne # Baso # Seg Neutrophils % Seg Neuts % (Manual) Lymphocytes % (Manual) Monocytes % (Manual) Basophils % (Manual) Nucleated RBC % Seg Neutrophils # Seg Neutrophils # Man Lymphocytes # (Manual) Monocytes # (Manual) Eosinophils # (Manual) Basophils # (Manual) PT INR D-Dimer ABG pH ABG pO2 ABG HCO3 ABG O2 Saturation ABG Base Excess ABG Hemoglobin Oxyhemoglobin Sodium Potassium Chloride Carbon Dioxide BUN Creatinine Glucose POC Glucose 124 H 110 H Lactic Acid Calcium Magnesium Iron TIBC Ferritin AST ALT Lactate Dehydrogenase Troponin T C-Reactive Protein Total Protein Albumin Prealbumin Cholesterol LDL Cholesterol Direct HDL Cholesterol Urine WBC (Auto) Vancomycin Trough Coronavirus (PCR) Crossmatch See Detail 07/12/19 07/13/19 07/13/19 23:16 05:26 06:50 WBC 23.9 H RBC 2.58 L Hgb 6.9 L Hct 21.5 L MCV 83 L MCH 27 L MCHC RDW 19.0 H Plt Count Lymph % (Auto) Payne % (Auto) Lymph # Payne # Baso # Seg Neutrophils % Seg Neuts % (Manual) 96.0 H Lymphocytes % (Manual) 3.0 L Monocytes % (Manual) Basophils % (Manual) Nucleated RBC % Seg Neutrophils # Seg Neutrophils # Man 22.9 H Lymphocytes # (Manual) 0.7 L Monocytes # (Manual) Eosinophils # (Manual) Basophils # (Manual) PT INR D-Dimer ABG pH ABG pO2 ABG HCO3 ABG O2 Saturation ABG Base Excess ABG Hemoglobin Oxyhemoglobin Sodium Potassium Chloride Carbon Dioxide BUN Creatinine Glucose POC Glucose 108 H 126 H Lactic Acid Calcium Magnesium Iron TIBC Ferritin AST ALT Lactate Dehydrogenase Troponin T C-Reactive Protein Total Protein Albumin Prealbumin Cholesterol LDL Cholesterol Direct HDL Cholesterol Urine WBC (Auto) Vancomycin Trough Coronavirus (PCR) Crossmatch 07/13/19 07/13/19 07/13/19 06:50 12:38 18:05 WBC RBC Hgb Hct MCV MCH MCHC RDW Plt Count Lymph % (Auto) Payne % (Auto) Lymph # Payne # Baso # Seg Neutrophils % Seg Neuts % (Manual) Lymphocytes % (Manual) Monocytes % (Manual) Basophils % (Manual) Nucleated RBC % Seg Neutrophils # Seg Neutrophils # Man Lymphocytes # (Manual) Monocytes # (Manual) Eosinophils # (Manual) Basophils # (Manual) PT INR D-Dimer ABG pH ABG pO2 ABG HCO3 ABG O2 Saturation ABG Base Excess ABG Hemoglobin Oxyhemoglobin Sodium Potassium Chloride Carbon Dioxide BUN 33 H Creatinine 0.5 L Glucose 136 H POC Glucose 164 H 145 H Lactic Acid Calcium Magnesium Iron TIBC Ferritin AST ALT Lactate Dehydrogenase Troponin T C-Reactive Protein Total Protein Albumin Prealbumin Cholesterol LDL Cholesterol Direct HDL Cholesterol Urine WBC (Auto) Vancomycin Trough Coronavirus (PCR) Crossmatch 07/13/19 07/14/19 07/14/19 18:30 00:21 04:40 WBC 22.9 H RBC 2.45 L Hgb 6.6 L Hct 21.1 L MCV MCH 27 L MCHC 31 L RDW 19.2 H Plt Count Lymph % (Auto) Payne % (Auto) Lymph # Payne # Baso # Seg Neutrophils % Seg Neuts % (Manual) 91.0 H Lymphocytes % (Manual) 7.0 L Monocytes % (Manual) Basophils % (Manual) Nucleated RBC % Seg Neutrophils # Seg Neutrophils # Man 20.8 H Lymphocytes # (Manual) Monocytes # (Manual) Eosinophils # (Manual) Basophils # (Manual) PT INR D-Dimer ABG pH ABG pO2 58.1 L ABG HCO3 ABG O2 Saturation 88.7 L ABG Base Excess ABG Hemoglobin 7.8 L Oxyhemoglobin 86.8 L Sodium Potassium Chloride Carbon Dioxide BUN Creatinine Glucose POC Glucose 118 H Lactic Acid Calcium Magnesium Iron TIBC Ferritin AST ALT Lactate Dehydrogenase Troponin T C-Reactive Protein Total Protein Albumin Prealbumin Cholesterol LDL Cholesterol Direct HDL Cholesterol Urine WBC (Auto) Vancomycin Trough Coronavirus (PCR) Crossmatch 07/14/19 07/14/19 07/14/19 04:40 05:38 05:45 WBC RBC Hgb Hct MCV MCH MCHC RDW Plt Count Lymph % (Auto) Payne % (Auto) Lymph # Payne # Baso # Seg Neutrophils % Seg Neuts % (Manual) Lymphocytes % (Manual) Monocytes % (Manual) Basophils % (Manual) Nucleated RBC % Seg Neutrophils # Seg Neutrophils # Man Lymphocytes # (Manual) Monocytes # (Manual) Eosinophils # (Manual) Basophils # (Manual) PT INR D-Dimer ABG pH 7.230 L ABG pO2 72.1 L ABG HCO3 ABG O2 Saturation 89.3 L ABG Base Excess -2.7 L ABG Hemoglobin 6.7 L Oxyhemoglobin 87.7 L Sodium Potassium Chloride 107.4 H Carbon Dioxide BUN 45 H Creatinine Glucose 101 H POC Glucose 154 H Lactic Acid Calcium Magnesium Iron TIBC Ferritin AST ALT Lactate Dehydrogenase Troponin T C-Reactive Protein Total Protein Albumin Prealbumin Cholesterol LDL Cholesterol Direct HDL Cholesterol Urine WBC (Auto) Vancomycin Trough Coronavirus (PCR) Crossmatch 07/14/19 07/14/19 07/14/19 12:25 18:20 19:01 WBC 22.4 H RBC 2.70 L Hgb 7.5 L Hct 23.3 L MCV MCH MCHC RDW 19.5 H Plt Count Lymph % (Auto) Payne % (Auto) Lymph # Payne # Baso # Seg Neutrophils % Seg Neuts % (Manual) Lymphocytes % (Manual) Monocytes % (Manual) Basophils % (Manual) Nucleated RBC % Seg Neutrophils # Seg Neutrophils # Man Lymphocytes # (Manual) Monocytes # (Manual) Eosinophils # (Manual) Basophils # (Manual) PT INR D-Dimer ABG pH ABG pO2 ABG HCO3 ABG O2 Saturation ABG Base Excess ABG Hemoglobin Oxyhemoglobin Sodium Potassium Chloride Carbon Dioxide BUN Creatinine Glucose POC Glucose 136 H 131 H Lactic Acid Calcium Magnesium Iron TIBC Ferritin AST ALT Lactate Dehydrogenase Troponin T C-Reactive Protein Total Protein Albumin Prealbumin Cholesterol LDL Cholesterol Direct HDL Cholesterol Urine WBC (Auto) Vancomycin Trough Coronavirus (PCR) Crossmatch 07/15/19 07/15/19 07/15/19 00:17 04:35 05:18 WBC 20.6 H RBC 2.41 L Hgb 6.8 L Hct 20.7 L MCV MCH MCHC RDW 20.2 H Plt Count Lymph % (Auto) Payne % (Auto) Lymph # Payne # Baso # Seg Neutrophils % Seg Neuts % (Manual) 92.0 H Lymphocytes % (Manual) 5.0 L Monocytes % (Manual) Basophils % (Manual) Nucleated RBC % Seg Neutrophils # Seg Neutrophils # Man 19.0 H Lymphocytes # (Manual) 1.0 L Monocytes # (Manual) Eosinophils # (Manual) Basophils # (Manual) PT INR D-Dimer ABG pH 7.342 L ABG pO2 ABG HCO3 ABG O2 Saturation ABG Base Excess -3.1 L ABG Hemoglobin 7.2 L Oxyhemoglobin 94.9 L Sodium Potassium Chloride Carbon Dioxide BUN Creatinine Glucose POC Glucose 116 H Lactic Acid Calcium Magnesium Iron TIBC Ferritin AST ALT Lactate Dehydrogenase Troponin T C-Reactive Protein Total Protein Albumin Prealbumin Cholesterol LDL Cholesterol Direct HDL Cholesterol Urine WBC (Auto) Vancomycin Trough Coronavirus (PCR) Crossmatch 07/15/19 07/15/19 07/15/19 05:18 05:57 11:28 WBC RBC Hgb Hct MCV MCH MCHC RDW Plt Count Lymph % (Auto) Payne % (Auto) Lymph # Payne # Baso # Seg Neutrophils % Seg Neuts % (Manual) Lymphocytes % (Manual) Monocytes % (Manual) Basophils % (Manual) Nucleated RBC % Seg Neutrophils # Seg Neutrophils # Man Lymphocytes # (Manual) Monocytes # (Manual) Eosinophils # (Manual) Basophils # (Manual) PT INR D-Dimer ABG pH ABG pO2 ABG HCO3 ABG O2 Saturation ABG Base Excess ABG Hemoglobin Oxyhemoglobin Sodium Potassium Chloride Carbon Dioxide 20 L BUN 59 H Creatinine Glucose 140 H POC Glucose 139 H 117 H Lactic Acid Calcium Magnesium Iron TIBC Ferritin AST ALT Lactate Dehydrogenase Troponin T C-Reactive Protein Total Protein Albumin Prealbumin Cholesterol LDL Cholesterol Direct HDL Cholesterol Urine WBC (Auto) Vancomycin Trough Coronavirus (PCR) Crossmatch 07/15/19 07/16/19 07/16/19 18:13 00:06 03:43 WBC RBC Hgb Hct MCV MCH MCHC RDW Plt Count Lymph % (Auto) Payne % (Auto) Lymph # Payne # Baso # Seg Neutrophils % Seg Neuts % (Manual) Lymphocytes % (Manual) Monocytes % (Manual) Basophils % (Manual) Nucleated RBC % Seg Neutrophils # Seg Neutrophils # Man Lymphocytes # (Manual) Monocytes # (Manual) Eosinophils # (Manual) Basophils # (Manual) PT INR D-Dimer ABG pH 7.344 L ABG pO2 68.6 L ABG HCO3 ABG O2 Saturation ABG Base Excess -3.5 L ABG Hemoglobin 6.1 L Oxyhemoglobin 93.3 L Sodium Potassium Chloride Carbon Dioxide BUN Creatinine Glucose POC Glucose 114 H 119 H Lactic Acid Calcium Magnesium Iron TIBC Ferritin AST ALT Lactate Dehydrogenase Troponin T C-Reactive Protein Total Protein Albumin Prealbumin Cholesterol LDL Cholesterol Direct HDL Cholesterol Urine WBC (Auto) Vancomycin Trough Coronavirus (PCR) Crossmatch 07/16/19 07/16/19 07/16/19 04:41 04:41 12:09 WBC 19.6 H RBC 2.81 L Hgb 7.7 L Hct 24.0 L MCV MCH 27 L MCHC RDW 19.4 H Plt Count 514 H Lymph % (Auto) 6.7 L Payne % (Auto) Lymph # Payne # 1.0 H Baso # Seg Neutrophils % 87.0 H Seg Neuts % (Manual) Lymphocytes % (Manual) Monocytes % (Manual) Basophils % (Manual) Nucleated RBC % Seg Neutrophils # 17.0 H Seg Neutrophils # Man Lymphocytes # (Manual) Monocytes # (Manual) Eosinophils # (Manual) Basophils # (Manual) PT INR D-Dimer ABG pH ABG pO2 ABG HCO3 ABG O2 Saturation ABG Base Excess ABG Hemoglobin Oxyhemoglobin Sodium Potassium 5.9 H Chloride Carbon Dioxide 21 L BUN 73 H Creatinine 2.0 H Glucose POC Glucose 141 H Lactic Acid Calcium Magnesium Iron TIBC Ferritin AST ALT Lactate Dehydrogenase Troponin T C-Reactive Protein Total Protein Albumin Prealbumin Cholesterol LDL Cholesterol Direct HDL Cholesterol Urine WBC (Auto) Vancomycin Trough Coronavirus (PCR) Crossmatch 07/16/19 07/16/19 07/17/19 16:19 17:45 00:16 WBC RBC Hgb Hct MCV MCH MCHC RDW Plt Count Lymph % (Auto) Payne % (Auto) Lymph # Payne # Baso # Seg Neutrophils % Seg Neuts % (Manual) Lymphocytes % (Manual) Monocytes % (Manual) Basophils % (Manual) Nucleated RBC % Seg Neutrophils # Seg Neutrophils # Man Lymphocytes # (Manual) Monocytes # (Manual) Eosinophils # (Manual) Basophils # (Manual) PT INR D-Dimer ABG pH ABG pO2 ABG HCO3 ABG O2 Saturation ABG Base Excess ABG Hemoglobin Oxyhemoglobin Sodium Potassium 5.1 H Chloride Carbon Dioxide 20 L BUN 72 H Creatinine 1.7 H Glucose 128 H POC Glucose 181 H 164 H Lactic Acid Calcium Magnesium Iron TIBC Ferritin AST ALT Lactate Dehydrogenase Troponin T C-Reactive Protein Total Protein Albumin Prealbumin Cholesterol LDL Cholesterol Direct HDL Cholesterol Urine WBC (Auto) Vancomycin Trough Coronavirus (PCR) Crossmatch 07/17/19 07/17/19 07/17/19 04:20 04:39 04:39 WBC 16.1 H RBC 2.92 L Hgb 8.0 L Hct 25.5 L MCV MCH MCHC 31 L RDW 19.7 H Plt Count 564 H Lymph % (Auto) 3.6 L Payne % (Auto) 7.4 H Lymph # 0.6 L Payne # 1.2 H Baso # Seg Neutrophils % 87.5 H Seg Neuts % (Manual) Lymphocytes % (Manual) Monocytes % (Manual) Basophils % (Manual) Nucleated RBC % Seg Neutrophils # 14.1 H Seg Neutrophils # Man Lymphocytes # (Manual) Monocytes # (Manual) Eosinophils # (Manual) Basophils # (Manual) PT INR D-Dimer ABG pH 7.231 L ABG pO2 95.3 H ABG HCO3 ABG O2 Saturation ABG Base Excess -5.0 L ABG Hemoglobin 7.9 L Oxyhemoglobin 94.8 L Sodium Potassium Chloride 107.8 H Carbon Dioxide 21 L BUN 68 H Creatinine Glucose POC Glucose Lactic Acid Calcium Magnesium Iron TIBC Ferritin AST ALT Lactate Dehydrogenase Troponin T C-Reactive Protein Total Protein Albumin Prealbumin Cholesterol LDL Cholesterol Direct HDL Cholesterol Urine WBC (Auto) Vancomycin Trough Coronavirus (PCR) Crossmatch 07/17/19 07/17/19 07/17/19 05:28 12:11 18:48 WBC RBC Hgb Hct MCV MCH MCHC RDW Plt Count Lymph % (Auto) Payne % (Auto) Lymph # Payne # Baso # Seg Neutrophils % Seg Neuts % (Manual) Lymphocytes % (Manual) Monocytes % (Manual) Basophils % (Manual) Nucleated RBC % Seg Neutrophils # Seg Neutrophils # Man Lymphocytes # (Manual) Monocytes # (Manual) Eosinophils # (Manual) Basophils # (Manual) PT INR D-Dimer ABG pH ABG pO2 ABG HCO3 ABG O2 Saturation ABG Base Excess ABG Hemoglobin Oxyhemoglobin Sodium Potassium Chloride Carbon Dioxide BUN Creatinine Glucose POC Glucose 121 H 125 H 174 H Lactic Acid Calcium Magnesium Iron TIBC Ferritin AST ALT Lactate Dehydrogenase Troponin T C-Reactive Protein Total Protein Albumin Prealbumin Cholesterol LDL Cholesterol Direct HDL Cholesterol Urine WBC (Auto) Vancomycin Trough Coronavirus (PCR) Crossmatch 07/17/19 07/17/19 07/18/19 19:55 23:57 02:30 WBC RBC Hgb Hct MCV MCH MCHC RDW Plt Count Lymph % (Auto) Payne % (Auto) Lymph # Payne # Baso # Seg Neutrophils % Seg Neuts % (Manual) Lymphocytes % (Manual) Monocytes % (Manual) Basophils % (Manual) Nucleated RBC % Seg Neutrophils # Seg Neutrophils # Man Lymphocytes # (Manual) Monocytes # (Manual) Eosinophils # (Manual) Basophils # (Manual) PT INR D-Dimer ABG pH 7.344 L 7.294 L ABG pO2 78.5 L 119.2 H ABG HCO3 ABG O2 Saturation ABG Base Excess -3.3 L -2.6 L ABG Hemoglobin 8.6 L 8.1 L Oxyhemoglobin 94.8 L Sodium Potassium Chloride Carbon Dioxide BUN Creatinine Glucose POC Glucose 148 H Lactic Acid Calcium Magnesium Iron TIBC Ferritin AST ALT Lactate Dehydrogenase Troponin T C-Reactive Protein Total Protein Albumin Prealbumin Cholesterol LDL Cholesterol Direct HDL Cholesterol Urine WBC (Auto) Vancomycin Trough Coronavirus (PCR) Crossmatch 07/18/19 07/18/19 07/18/19 04:49 05:22 05:22 WBC 15.9 H RBC 3.00 L Hgb 8.1 L Hct 26.0 L MCV MCH 27 L MCHC 31 L RDW 19.4 H Plt Count 733 H Lymph % (Auto) 6.3 L Payne % (Auto) 7.4 H Lymph # 1.0 L Payne # 1.2 H Baso # 0.2 H Seg Neutrophils % 83.8 H Seg Neuts % (Manual) Lymphocytes % (Manual) Monocytes % (Manual) Basophils % (Manual) Nucleated RBC % Seg Neutrophils # 13.3 H Seg Neutrophils # Man Lymphocytes # (Manual) Monocytes # (Manual) Eosinophils # (Manual) Basophils # (Manual) PT INR D-Dimer ABG pH ABG pO2 ABG HCO3 ABG O2 Saturation ABG Base Excess ABG Hemoglobin Oxyhemoglobin Sodium Potassium Chloride 110.6 H Carbon Dioxide BUN 61 H Creatinine Glucose 109 H POC Glucose 116 H Lactic Acid Calcium Magnesium Iron TIBC Ferritin AST ALT Lactate Dehydrogenase Troponin T C-Reactive Protein Total Protein Albumin Prealbumin Cholesterol LDL Cholesterol Direct HDL Cholesterol Urine WBC (Auto) Vancomycin Trough Coronavirus (PCR) Crossmatch 07/18/19 07/18/19 07/18/19 12:23 18:06 22:20 WBC RBC Hgb Hct MCV MCH MCHC RDW Plt Count Lymph % (Auto) Payne % (Auto) Lymph # Payne # Baso # Seg Neutrophils % Seg Neuts % (Manual) Lymphocytes % (Manual) Monocytes % (Manual) Basophils % (Manual) Nucleated RBC % Seg Neutrophils # Seg Neutrophils # Man Lymphocytes # (Manual) Monocytes # (Manual) Eosinophils # (Manual) Basophils # (Manual) PT INR D-Dimer ABG pH 7.338 L ABG pO2 135.1 H ABG HCO3 ABG O2 Saturation ABG Base Excess ABG Hemoglobin 9.2 L Oxyhemoglobin Sodium Potassium Chloride Carbon Dioxide BUN Creatinine Glucose POC Glucose 114 H 113 H Lactic Acid Calcium Magnesium Iron TIBC Ferritin AST ALT Lactate Dehydrogenase Troponin T C-Reactive Protein Total Protein Albumin Prealbumin Cholesterol LDL Cholesterol Direct HDL Cholesterol Urine WBC (Auto) Vancomycin Trough Coronavirus (PCR) Crossmatch 07/18/19 07/19/19 07/19/19 23:33 03:45 05:18 WBC RBC Hgb Hct MCV MCH MCHC RDW Plt Count Lymph % (Auto) Payne % (Auto) Lymph # Payne # Baso # Seg Neutrophils % Seg Neuts % (Manual) Lymphocytes % (Manual) Monocytes % (Manual) Basophils % (Manual) Nucleated RBC % Seg Neutrophils # Seg Neutrophils # Man Lymphocytes # (Manual) Monocytes # (Manual) Eosinophils # (Manual) Basophils # (Manual) PT INR D-Dimer ABG pH 7.342 L ABG pO2 95.0 H ABG HCO3 ABG O2 Saturation ABG Base Excess ABG Hemoglobin 8.5 L Oxyhemoglobin Sodium Potassium Chloride Carbon Dioxide BUN Creatinine Glucose POC Glucose 125 H 111 H Lactic Acid Calcium Magnesium Iron TIBC Ferritin AST ALT Lactate Dehydrogenase Troponin T C-Reactive Protein Total Protein Albumin Prealbumin Cholesterol LDL Cholesterol Direct HDL Cholesterol Urine WBC (Auto) Vancomycin Trough Coronavirus (PCR) Crossmatch 07/19/19 07/19/19 07/19/19 08:45 08:45 11:47 WBC 15.9 H RBC 3.31 L Hgb 9.1 L Hct 28.4 L MCV MCH 27 L MCHC RDW 19.1 H Plt Count 858 H Lymph % (Auto) 4.9 L Payne % (Auto) 8.1 H Lymph # 0.8 L Payne # 1.3 H Baso # Seg Neutrophils % 85.5 H Seg Neuts % (Manual) Lymphocytes % (Manual) Monocytes % (Manual) Basophils % (Manual) Nucleated RBC % Seg Neutrophils # 13.6 H Seg Neutrophils # Man Lymphocytes # (Manual) Monocytes # (Manual) Eosinophils # (Manual) Basophils # (Manual) PT INR D-Dimer ABG pH ABG pO2 ABG HCO3 ABG O2 Saturation ABG Base Excess ABG Hemoglobin Oxyhemoglobin Sodium Potassium Chloride 111.6 H Carbon Dioxide BUN 50 H Creatinine 0.7 L Glucose 118 H POC Glucose 114 H Lactic Acid Calcium Magnesium Iron TIBC Ferritin AST ALT Lactate Dehydrogenase Troponin T C-Reactive Protein Total Protein Albumin Prealbumin Cholesterol LDL Cholesterol Direct HDL Cholesterol Urine WBC (Auto) Vancomycin Trough Coronavirus (PCR) Crossmatch 07/19/19 07/19/19 07/20/19 18:25 23:44 04:39 WBC RBC Hgb Hct MCV MCH MCHC RDW Plt Count Lymph % (Auto) Payne % (Auto) Lymph # Payne # Baso # Seg Neutrophils % Seg Neuts % (Manual) Lymphocytes % (Manual) Monocytes % (Manual) Basophils % (Manual) Nucleated RBC % Seg Neutrophils # Seg Neutrophils # Man Lymphocytes # (Manual) Monocytes # (Manual) Eosinophils # (Manual) Basophils # (Manual) PT INR D-Dimer ABG pH ABG pO2 ABG HCO3 ABG O2 Saturation ABG Base Excess ABG Hemoglobin Oxyhemoglobin Sodium Potassium Chloride 110.3 H Carbon Dioxide BUN 44 H Creatinine 0.6 L Glucose 120 H POC Glucose 115 H 117 H Lactic Acid Calcium Magnesium Iron TIBC Ferritin AST ALT Lactate Dehydrogenase Troponin T C-Reactive Protein Total Protein Albumin Prealbumin Cholesterol LDL Cholesterol Direct HDL Cholesterol Urine WBC (Auto) Vancomycin Trough Coronavirus (PCR) Crossmatch 07/20/19 07/21/19 07/21/19 05:30 11:59 17:40 WBC RBC Hgb Hct MCV MCH MCHC RDW Plt Count Lymph % (Auto) Payne % (Auto) Lymph # Payne # Baso # Seg Neutrophils % Seg Neuts % (Manual) Lymphocytes % (Manual) Monocytes % (Manual) Basophils % (Manual) Nucleated RBC % Seg Neutrophils # Seg Neutrophils # Man Lymphocytes # (Manual) Monocytes # (Manual) Eosinophils # (Manual) Basophils # (Manual) PT INR D-Dimer ABG pH ABG pO2 ABG HCO3 ABG O2 Saturation ABG Base Excess ABG Hemoglobin Oxyhemoglobin Sodium Potassium Chloride Carbon Dioxide BUN Creatinine Glucose POC Glucose 131 H 122 H 125 H Lactic Acid Calcium Magnesium Iron TIBC Ferritin AST ALT Lactate Dehydrogenase Troponin T C-Reactive Protein Total Protein Albumin Prealbumin Cholesterol LDL Cholesterol Direct HDL Cholesterol Urine WBC (Auto) Vancomycin Trough Coronavirus (PCR) Crossmatch 07/22/19 07/22/19 07/22/19 05:38 05:38 12:29 WBC 12.6 H RBC 3.19 L Hgb 8.9 L Hct 27.5 L MCV MCH MCHC RDW 18.9 H Plt Count 1101 H* Lymph % (Auto) Payne % (Auto) 12.2 H Lymph # Payne # 1.5 H Baso # Seg Neutrophils % 72.8 H Seg Neuts % (Manual) 76.0 H Lymphocytes % (Manual) 7.0 L Monocytes % (Manual) 14.0 H Basophils % (Manual) Nucleated RBC % 1.0 H Seg Neutrophils # 9.2 H Seg Neutrophils # Man 9.6 H Lymphocytes # (Manual) 0.9 L Monocytes # (Manual) 1.8 H Eosinophils # (Manual) Basophils # (Manual) PT INR D-Dimer ABG pH ABG pO2 ABG HCO3 ABG O2 Saturation ABG Base Excess ABG Hemoglobin Oxyhemoglobin Sodium Potassium 3.4 L Chloride Carbon Dioxide BUN 29 H Creatinine 0.5 L Glucose POC Glucose 116 H Lactic Acid Calcium Magnesium Iron TIBC Ferritin AST ALT Lactate Dehydrogenase Troponin T C-Reactive Protein Total Protein Albumin Prealbumin Cholesterol LDL Cholesterol Direct HDL Cholesterol Urine WBC (Auto) Vancomycin Trough Coronavirus (PCR) Crossmatch 07/22/19 07/22/19 07/23/19 18:20 23:51 04:52 WBC RBC Hgb Hct MCV MCH MCHC RDW Plt Count Lymph % (Auto) Payne % (Auto) Lymph # Payne # Baso # Seg Neutrophils % Seg Neuts % (Manual) Lymphocytes % (Manual) Monocytes % (Manual) Basophils % (Manual) Nucleated RBC % Seg Neutrophils # Seg Neutrophils # Man Lymphocytes # (Manual) Monocytes # (Manual) Eosinophils # (Manual) Basophils # (Manual) PT INR D-Dimer ABG pH ABG pO2 ABG HCO3 ABG O2 Saturation ABG Base Excess ABG Hemoglobin Oxyhemoglobin Sodium Potassium Chloride Carbon Dioxide BUN 24 H Creatinine 0.4 L Glucose POC Glucose 107 H 110 H Lactic Acid Calcium Magnesium Iron TIBC Ferritin AST ALT Lactate Dehydrogenase Troponin T C-Reactive Protein Total Protein Albumin Prealbumin Cholesterol LDL Cholesterol Direct HDL Cholesterol Urine WBC (Auto) Vancomycin Trough Coronavirus (PCR) Crossmatch 07/23/19 07/23/19 07/24/19 06:00 23:15 04:40 WBC RBC Hgb Hct MCV MCH MCHC RDW Plt Count Lymph % (Auto) Payne % (Auto) Lymph # Payne # Baso # Seg Neutrophils % Seg Neuts % (Manual) Lymphocytes % (Manual) Monocytes % (Manual) Basophils % (Manual) Nucleated RBC % Seg Neutrophils # Seg Neutrophils # Man Lymphocytes # (Manual) Monocytes # (Manual) Eosinophils # (Manual) Basophils # (Manual) PT INR D-Dimer ABG pH ABG pO2 73.5 L ABG HCO3 27.0 H 28.5 H ABG O2 Saturation 94.5 L ABG Base Excess ABG Hemoglobin 9.4 L 8.9 L Oxyhemoglobin 94.0 L 92.7 L Sodium Potassium Chloride Carbon Dioxide BUN Creatinine Glucose POC Glucose 117 H Lactic Acid Calcium Magnesium Iron TIBC Ferritin AST ALT Lactate Dehydrogenase Troponin T C-Reactive Protein Total Protein Albumin Prealbumin Cholesterol LDL Cholesterol Direct HDL Cholesterol Urine WBC (Auto) Vancomycin Trough Coronavirus (PCR) Crossmatch 05/08/0707/24/19 07/25/19 05:25 12:06 00:16 WBC RBC Hgb Hct MCV MCH MCHC RDW Plt Count Lymph % (Auto) Payne % (Auto) Lymph # Payne # Baso # Seg Neutrophils % Seg Neuts % (Manual) Lymphocytes % (Manual) Monocytes % (Manual) Basophils % (Manual) Nucleated RBC % Seg Neutrophils # Seg Neutrophils # Man Lymphocytes # (Manual) Monocytes # (Manual) Eosinophils # (Manual) Basophils # (Manual) PT INR D-Dimer ABG pH ABG pO2 ABG HCO3 ABG O2 Saturation ABG Base Excess ABG Hemoglobin Oxyhemoglobin Sodium Potassium Chloride Carbon Dioxide BUN Creatinine Glucose POC Glucose 114 H 108 H 106 H Lactic Acid Calcium Magnesium Iron TIBC Ferritin AST ALT Lactate Dehydrogenase Troponin T C-Reactive Protein Total Protein Albumin Prealbumin Cholesterol LDL Cholesterol Direct HDL Cholesterol Urine WBC (Auto) Vancomycin Trough Coronavirus (PCR) Crossmatch 07/25/19 07/25/19 07/25/19 05:14 05:14 05:17 WBC 17.8 H RBC 3.32 L Hgb 9.2 L Hct 28.6 L MCV MCH MCHC RDW 19.9 H Plt Count 994 H Lymph % (Auto) Payne % (Auto) Lymph # Payne # Baso # Seg Neutrophils % Seg Neuts % (Manual) 82.0 H Lymphocytes % (Manual) 5.0 L Monocytes % (Manual) Basophils % (Manual) Nucleated RBC % Seg Neutrophils # Seg Neutrophils # Man 14.6 H Lymphocytes # (Manual) 0.9 L Monocytes # (Manual) 1.2 H Eosinophils # (Manual) Basophils # (Manual) PT INR D-Dimer ABG pH ABG pO2 ABG HCO3 ABG O2 Saturation ABG Base Excess ABG Hemoglobin Oxyhemoglobin Sodium Potassium Chloride Carbon Dioxide BUN Creatinine 0.4 L Glucose 110 H POC Glucose 107 H Lactic Acid Calcium Magnesium Iron TIBC Ferritin AST ALT Lactate Dehydrogenase Troponin T C-Reactive Protein Total Protein Albumin Prealbumin Cholesterol LDL Cholesterol Direct HDL Cholesterol Urine WBC (Auto) Vancomycin Trough Coronavirus (PCR) Crossmatch 07/25/19 07/25/19 07/26/19 11:55 23:49 06:01 WBC RBC Hgb Hct MCV MCH MCHC RDW Plt Count Lymph % (Auto) Payne % (Auto) Lymph # Payne # Baso # Seg Neutrophils % Seg Neuts % (Manual) Lymphocytes % (Manual) Monocytes % (Manual) Basophils % (Manual) Nucleated RBC % Seg Neutrophils # Seg Neutrophils # Man Lymphocytes # (Manual) Monocytes # (Manual) Eosinophils # (Manual) Basophils # (Manual) PT INR D-Dimer ABG pH ABG pO2 ABG HCO3 ABG O2 Saturation ABG Base Excess ABG Hemoglobin Oxyhemoglobin Sodium Potassium Chloride Carbon Dioxide BUN Creatinine Glucose POC Glucose 123 H 118 H 106 H Lactic Acid Calcium Magnesium Iron TIBC Ferritin AST ALT Lactate Dehydrogenase Troponin T C-Reactive Protein Total Protein Albumin Prealbumin Cholesterol LDL Cholesterol Direct HDL Cholesterol Urine WBC (Auto) Vancomycin Trough Coronavirus (PCR) Crossmatch 07/26/19 07/27/19 07/27/19 17:02 00:28 05:16 WBC RBC Hgb Hct MCV MCH MCHC RDW Plt Count Lymph % (Auto) Payne % (Auto) Lymph # Payne # Baso # Seg Neutrophils % Seg Neuts % (Manual) Lymphocytes % (Manual) Monocytes % (Manual) Basophils % (Manual) Nucleated RBC % Seg Neutrophils # Seg Neutrophils # Man Lymphocytes # (Manual) Monocytes # (Manual) Eosinophils # (Manual) Basophils # (Manual) PT INR D-Dimer ABG pH ABG pO2 63.4 L ABG HCO3 31.3 H ABG O2 Saturation 92.7 L ABG Base Excess 6.3 H ABG Hemoglobin 7.6 L Oxyhemoglobin 90.9 L Sodium Potassium Chloride Carbon Dioxide BUN Creatinine Glucose POC Glucose 116 H 158 H Lactic Acid Calcium Magnesium Iron TIBC Ferritin AST ALT Lactate Dehydrogenase Troponin T C-Reactive Protein Total Protein Albumin Prealbumin Cholesterol LDL Cholesterol Direct HDL Cholesterol Urine WBC (Auto) Vancomycin Trough Coronavirus (PCR) Crossmatch 07/28/19 07/28/19 07/28/19 10:13 10:13 23:54 WBC 18.5 H RBC 3.20 L Hgb 8.8 L Hct 26.8 L MCV MCH 27 L MCHC RDW 19.9 H Plt Count 730 H Lymph % (Auto) Payne % (Auto) Lymph # Payne # Baso # Seg Neutrophils % Seg Neuts % (Manual) Lymphocytes % (Manual) Monocytes % (Manual) Basophils % (Manual) Nucleated RBC % Seg Neutrophils # Seg Neutrophils # Man Lymphocytes # (Manual) Monocytes # (Manual) Eosinophils # (Manual) Basophils # (Manual) PT INR D-Dimer ABG pH ABG pO2 ABG HCO3 ABG O2 Saturation ABG Base Excess ABG Hemoglobin Oxyhemoglobin Sodium Potassium 3.2 L Chloride 97.5 L Carbon Dioxide 31 H BUN Creatinine 0.5 L Glucose POC Glucose 120 H Lactic Acid Calcium Magnesium Iron TIBC Ferritin AST ALT Lactate Dehydrogenase Troponin T C-Reactive Protein Total Protein Albumin Prealbumin Cholesterol LDL Cholesterol Direct HDL Cholesterol Urine WBC (Auto) Vancomycin Trough Coronavirus (PCR) Crossmatch 07/29/19 07/29/19 07/29/19 11:57 17:43 Unknown WBC RBC Hgb Hct MCV MCH MCHC RDW Plt Count Lymph % (Auto) Payne % (Auto) Lymph # Payne # Baso # Seg Neutrophils % Seg Neuts % (Manual) Lymphocytes % (Manual) Monocytes % (Manual) Basophils % (Manual) Nucleated RBC % Seg Neutrophils # Seg Neutrophils # Man Lymphocytes # (Manual) Monocytes # (Manual) Eosinophils # (Manual) Basophils # (Manual) PT INR D-Dimer ABG pH ABG pO2 ABG HCO3 ABG O2 Saturation ABG Base Excess ABG Hemoglobin Oxyhemoglobin Sodium Potassium Chloride Carbon Dioxide BUN Creatinine Glucose POC Glucose 112 H Lactic Acid Calcium Magnesium Iron TIBC Ferritin AST ALT Lactate Dehydrogenase Troponin T C-Reactive Protein Total Protein Albumin Prealbumin Cholesterol LDL Cholesterol Direct HDL Cholesterol Urine WBC (Auto) 63.0 H Vancomycin Trough Coronavirus (PCR) Positive A Crossmatch 07/30/19 07/30/19 07/30/19 00:20 04:35 04:35 WBC 24.3 H RBC 3.12 L Hgb 8.5 L Hct 26.3 L MCV MCH 27 L MCHC RDW 20.2 H Plt Count 550 H Lymph % (Auto) Payne % (Auto) Lymph # Payne # Baso # Seg Neutrophils % Seg Neuts % (Manual) Lymphocytes % (Manual) Monocytes % (Manual) Basophils % (Manual) Nucleated RBC % Seg Neutrophils # Seg Neutrophils # Man Lymphocytes # (Manual) Monocytes # (Manual) Eosinophils # (Manual) Basophils # (Manual) PT INR D-Dimer ABG pH ABG pO2 ABG HCO3 ABG O2 Saturation ABG Base Excess ABG Hemoglobin Oxyhemoglobin Sodium Potassium 3.0 L Chloride 96.3 L Carbon Dioxide 32 H BUN Creatinine 0.5 L Glucose POC Glucose 106 H Lactic Acid Calcium Magnesium Iron TIBC Ferritin AST ALT Lactate Dehydrogenase Troponin T C-Reactive Protein Total Protein Albumin Prealbumin Cholesterol LDL Cholesterol Direct HDL Cholesterol Urine WBC (Auto) Vancomycin Trough Coronavirus (PCR) Crossmatch 07/31/19 07/31/19 07/31/19 04:42 04:42 11:33 WBC 23.8 H RBC 3.10 L Hgb 8.4 L Hct 26.1 L MCV MCH 27 L MCHC RDW 19.6 H Plt Count 561 H Lymph % (Auto) Payne % (Auto) Lymph # Payne # Baso # Seg Neutrophils % Seg Neuts % (Manual) Lymphocytes % (Manual) Monocytes % (Manual) Basophils % (Manual) Nucleated RBC % Seg Neutrophils # Seg Neutrophils # Man Lymphocytes # (Manual) Monocytes # (Manual) Eosinophils # (Manual) Basophils # (Manual) PT INR D-Dimer ABG pH ABG pO2 ABG HCO3 ABG O2 Saturation ABG Base Excess ABG Hemoglobin Oxyhemoglobin Sodium 135 L Potassium Chloride 93.9 L Carbon Dioxide 32 H BUN Creatinine 0.4 L Glucose POC Glucose 116 H Lactic Acid Calcium Magnesium Iron TIBC Ferritin AST ALT Lactate Dehydrogenase Troponin T C-Reactive Protein Total Protein Albumin 1.6 L Prealbumin 0.037 L Cholesterol LDL Cholesterol Direct HDL Cholesterol Urine WBC (Auto) Vancomycin Trough Coronavirus (PCR) Crossmatch 07/31/19 08/01/19 08/01/19 23:33 04:57 04:57 WBC 26.7 H RBC 3.12 L Hgb 8.5 L Hct 26.3 L MCV MCH 27 L MCHC RDW 19.2 H Plt Count 602 H Lymph % (Auto) Payne % (Auto) Lymph # Payne # Baso # Seg Neutrophils % Seg Neuts % (Manual) 93.0 H Lymphocytes % (Manual) 2.0 L Monocytes % (Manual) Basophils % (Manual) Nucleated RBC % Seg Neutrophils # Seg Neutrophils # Man 24.8 H Lymphocytes # (Manual) 0.5 L Monocytes # (Manual) 1.1 H Eosinophils # (Manual) Basophils # (Manual) PT INR D-Dimer ABG pH ABG pO2 ABG HCO3 ABG O2 Saturation ABG Base Excess ABG Hemoglobin Oxyhemoglobin Sodium 132 L Potassium Chloride 93.8 L Carbon Dioxide 31 H BUN Creatinine 0.3 L Glucose POC Glucose 148 H Lactic Acid Calcium 8.1 L Magnesium Iron TIBC Ferritin AST ALT Lactate Dehydrogenase Troponin T C-Reactive Protein Total Protein Albumin Prealbumin Cholesterol LDL Cholesterol Direct HDL Cholesterol Urine WBC (Auto) Vancomycin Trough Coronavirus (PCR) Crossmatch 08/01/19 08/02/19 08/02/19 12:16 00:22 05:24 WBC RBC Hgb Hct MCV MCH MCHC RDW Plt Count Lymph % (Auto) Payne % (Auto) Lymph # Payne # Baso # Seg Neutrophils % Seg Neuts % (Manual) Lymphocytes % (Manual) Monocytes % (Manual) Basophils % (Manual) Nucleated RBC % Seg Neutrophils # Seg Neutrophils # Man Lymphocytes # (Manual) Monocytes # (Manual) Eosinophils # (Manual) Basophils # (Manual) PT INR D-Dimer ABG pH ABG pO2 ABG HCO3 ABG O2 Saturation ABG Base Excess ABG Hemoglobin Oxyhemoglobin Sodium Potassium Chloride Carbon Dioxide BUN Creatinine Glucose POC Glucose 120 H 119 H 113 H Lactic Acid Calcium Magnesium Iron TIBC Ferritin AST ALT Lactate Dehydrogenase Troponin T C-Reactive Protein Total Protein Albumin Prealbumin Cholesterol LDL Cholesterol Direct HDL Cholesterol Urine WBC (Auto) Vancomycin Trough Coronavirus (PCR) Crossmatch 08/03/19 08/03/19 08/03/19 05:20 12:01 23:48 WBC RBC Hgb Hct MCV MCH MCHC RDW Plt Count Lymph % (Auto) Payne % (Auto) Lymph # Payne # Baso # Seg Neutrophils % Seg Neuts % (Manual) Lymphocytes % (Manual) Monocytes % (Manual) Basophils % (Manual) Nucleated RBC % Seg Neutrophils # Seg Neutrophils # Man Lymphocytes # (Manual) Monocytes # (Manual) Eosinophils # (Manual) Basophils # (Manual) PT INR D-Dimer ABG pH ABG pO2 ABG HCO3 ABG O2 Saturation ABG Base Excess ABG Hemoglobin Oxyhemoglobin Sodium Potassium Chloride Carbon Dioxide BUN Creatinine Glucose POC Glucose 118 H 106 H 120 H Lactic Acid Calcium Magnesium Iron TIBC Ferritin AST ALT Lactate Dehydrogenase Troponin T C-Reactive Protein Total Protein Albumin Prealbumin Cholesterol LDL Cholesterol Direct HDL Cholesterol Urine WBC (Auto) Vancomycin Trough Coronavirus (PCR) Crossmatch 08/04/19 08/04/19 08/04/19 05:38 05:38 06:29 WBC 26.1 H RBC 2.77 L Hgb 7.5 L Hct 23.2 L MCV MCH 27 L MCHC RDW 19.2 H Plt Count 648 H Lymph % (Auto) Payne % (Auto) Lymph # Payne # Baso # Seg Neutrophils % Seg Neuts % (Manual) 90.5 H Lymphocytes % (Manual) 3.5 L Monocytes % (Manual) Basophils % (Manual) Nucleated RBC % Seg Neutrophils # Seg Neutrophils # Man 23.6 H Lymphocytes # (Manual) 0.9 L Monocytes # (Manual) 1.2 H Eosinophils # (Manual) Basophils # (Manual) PT INR D-Dimer ABG pH ABG pO2 ABG HCO3 ABG O2 Saturation ABG Base Excess ABG Hemoglobin Oxyhemoglobin Sodium 132 L Potassium 3.4 L D Chloride 92.7 L Carbon Dioxide 33 H BUN Creatinine 0.2 L Glucose POC Glucose 108 H Lactic Acid Calcium 8.1 L Magnesium Iron TIBC Ferritin AST ALT Lactate Dehydrogenase Troponin T C-Reactive Protein Total Protein Albumin Prealbumin Cholesterol LDL Cholesterol Direct HDL Cholesterol Urine WBC (Auto) Vancomycin Trough Coronavirus (PCR) Crossmatch 08/04/19 08/05/19 08/05/19 12:30 04:58 04:58 WBC 21.0 H RBC 2.63 L Hgb 7.2 L Hct 21.9 L MCV 83 L MCH 27 L MCHC RDW 18.9 H Plt Count 691 H Lymph % (Auto) Payne % (Auto) Lymph # Payne # Baso # Seg Neutrophils % Seg Neuts % (Manual) 86.0 H Lymphocytes % (Manual) 3.0 L Monocytes % (Manual) 10.0 H Basophils % (Manual) Nucleated RBC % Seg Neutrophils # Seg Neutrophils # Man 18.1 H Lymphocytes # (Manual) 0.6 L Monocytes # (Manual) 2.1 H Eosinophils # (Manual) Basophils # (Manual) PT INR D-Dimer ABG pH ABG pO2 ABG HCO3 ABG O2 Saturation ABG Base Excess ABG Hemoglobin Oxyhemoglobin Sodium 134 L Potassium 3.2 L Chloride 93.2 L Carbon Dioxide 34 H BUN 8 L Creatinine 0.3 L Glucose POC Glucose 138 H Lactic Acid Calcium 8.1 L Magnesium Iron TIBC Ferritin AST ALT Lactate Dehydrogenase Troponin T C-Reactive Protein Total Protein Albumin Prealbumin Cholesterol LDL Cholesterol Direct HDL Cholesterol Urine WBC (Auto) Vancomycin Trough Coronavirus (PCR) Crossmatch 08/05/19 08/05/19 08/05/19 11:53 17:57 23:58 WBC RBC Hgb Hct MCV MCH MCHC RDW Plt Count Lymph % (Auto) Payne % (Auto) Lymph # Payne # Baso # Seg Neutrophils % Seg Neuts % (Manual) Lymphocytes % (Manual) Monocytes % (Manual) Basophils % (Manual) Nucleated RBC % Seg Neutrophils # Seg Neutrophils # Man Lymphocytes # (Manual) Monocytes # (Manual) Eosinophils # (Manual) Basophils # (Manual) PT INR D-Dimer ABG pH ABG pO2 ABG HCO3 ABG O2 Saturation ABG Base Excess ABG Hemoglobin Oxyhemoglobin Sodium Potassium Chloride Carbon Dioxide BUN Creatinine Glucose POC Glucose 106 H 111 H 116 H Lactic Acid Calcium Magnesium Iron TIBC Ferritin AST ALT Lactate Dehydrogenase Troponin T C-Reactive Protein Total Protein Albumin Prealbumin Cholesterol LDL Cholesterol Direct HDL Cholesterol Urine WBC (Auto) Vancomycin Trough Coronavirus (PCR) Crossmatch 08/06/19 08/06/19 08/06/19 04:11 04:11 06:04 WBC 20.8 H RBC 2.80 L Hgb 7.6 L Hct 23.5 L MCV MCH 27 L MCHC RDW 19.0 H Plt Count 723 H Lymph % (Auto) Payne % (Auto) Lymph # Payne # Baso # Seg Neutrophils % Seg Neuts % (Manual) 88.0 H Lymphocytes % (Manual) 3.0 L Monocytes % (Manual) Basophils % (Manual) Nucleated RBC % Seg Neutrophils # Seg Neutrophils # Man 18.3 H Lymphocytes # (Manual) 0.6 L Monocytes # (Manual) Eosinophils # (Manual) Basophils # (Manual) 0.2 H PT INR D-Dimer ABG pH ABG pO2 ABG HCO3 ABG O2 Saturation ABG Base Excess ABG Hemoglobin Oxyhemoglobin Sodium Potassium 3.4 L Chloride 95.2 L Carbon Dioxide 32 H BUN Creatinine 0.3 L Glucose POC Glucose 108 H Lactic Acid Calcium 8.2 L Magnesium Iron TIBC Ferritin AST ALT Lactate Dehydrogenase Troponin T C-Reactive Protein Total Protein Albumin Prealbumin Cholesterol LDL Cholesterol Direct HDL Cholesterol Urine WBC (Auto) Vancomycin Trough Coronavirus (PCR) Crossmatch 08/06/19 08/06/19 08/07/19 12:23 17:13 00:21 WBC RBC Hgb Hct MCV MCH MCHC RDW Plt Count Lymph % (Auto) Payne % (Auto) Lymph # Payne # Baso # Seg Neutrophils % Seg Neuts % (Manual) Lymphocytes % (Manual) Monocytes % (Manual) Basophils % (Manual) Nucleated RBC % Seg Neutrophils # Seg Neutrophils # Man Lymphocytes # (Manual) Monocytes # (Manual) Eosinophils # (Manual) Basophils # (Manual) PT INR D-Dimer ABG pH ABG pO2 ABG HCO3 ABG O2 Saturation ABG Base Excess ABG Hemoglobin Oxyhemoglobin Sodium Potassium Chloride Carbon Dioxide BUN Creatinine Glucose POC Glucose 112 H 132 H 147 H Lactic Acid Calcium Magnesium Iron TIBC Ferritin AST ALT Lactate Dehydrogenase Troponin T C-Reactive Protein Total Protein Albumin Prealbumin Cholesterol LDL Cholesterol Direct HDL Cholesterol Urine WBC (Auto) Vancomycin Trough Coronavirus (PCR) Crossmatch 08/07/19 08/07/19 08/07/19 05:16 05:23 05:23 WBC 30.3 H RBC 2.69 L Hgb 7.1 L Hct 22.2 L MCV 83 L MCH 27 L MCHC RDW 19.1 H Plt Count 650 H Lymph % (Auto) Payne % (Auto) Lymph # Payne # Baso # Seg Neutrophils % Seg Neuts % (Manual) 88.0 H Lymphocytes % (Manual) 5.0 L Monocytes % (Manual) Basophils % (Manual) Nucleated RBC % Seg Neutrophils # Seg Neutrophils # Man 26.7 H Lymphocytes # (Manual) Monocytes # (Manual) 2.1 H Eosinophils # (Manual) Basophils # (Manual) PT INR D-Dimer ABG pH ABG pO2 ABG HCO3 ABG O2 Saturation ABG Base Excess ABG Hemoglobin Oxyhemoglobin Sodium 135 L Potassium 3.4 L Chloride 95.4 L Carbon Dioxide 32 H BUN Creatinine 0.4 L Glucose 120 H POC Glucose 120 H Lactic Acid Calcium 7.7 L Magnesium Iron TIBC Ferritin AST ALT Lactate Dehydrogenase Troponin T C-Reactive Protein Total Protein Albumin Prealbumin Cholesterol LDL Cholesterol Direct HDL Cholesterol Urine WBC (Auto) Vancomycin Trough Coronavirus (PCR) Crossmatch 08/07/19 08/07/19 08/07/19 10:24 10:24 11:10 WBC RBC Hgb Hct MCV MCH MCHC RDW Plt Count Lymph % (Auto) Payne % (Auto) Lymph # Payne # Baso # Seg Neutrophils % Seg Neuts % (Manual) Lymphocytes % (Manual) Monocytes % (Manual) Basophils % (Manual) Nucleated RBC % Seg Neutrophils # Seg Neutrophils # Man Lymphocytes # (Manual) Monocytes # (Manual) Eosinophils # (Manual) Basophils # (Manual) PT INR D-Dimer 1808.06 H ABG pH ABG pO2 73.3 L ABG HCO3 33.9 H ABG O2 Saturation ABG Base Excess 9.0 H ABG Hemoglobin 6.3 L Oxyhemoglobin 94.3 L Sodium Potassium Chloride Carbon Dioxide BUN Creatinine Glucose POC Glucose Lactic Acid Calcium Magnesium Iron TIBC Ferritin AST ALT Lactate Dehydrogenase Troponin T C-Reactive Protein 11.10 H Total Protein Albumin Prealbumin Cholesterol LDL Cholesterol Direct HDL Cholesterol Urine WBC (Auto) Vancomycin Trough Coronavirus (PCR) Crossmatch 08/07/19 08/08/19 08/08/19 12:01 04:41 04:41 WBC 22.1 H RBC 2.82 L Hgb 7.7 L Hct 23.6 L MCV MCH 27 L MCHC RDW 19.1 H Plt Count 722 H Lymph % (Auto) Payne % (Auto) Lymph # Payne # Baso # Seg Neutrophils % Seg Neuts % (Manual) 90.0 H Lymphocytes % (Manual) 3.0 L Monocytes % (Manual) Basophils % (Manual) Nucleated RBC % Seg Neutrophils # Seg Neutrophils # Man 19.9 H Lymphocytes # (Manual) 0.7 L Monocytes # (Manual) 1.3 H Eosinophils # (Manual) Basophils # (Manual) PT INR D-Dimer ABG pH ABG pO2 ABG HCO3 ABG O2 Saturation ABG Base Excess ABG Hemoglobin Oxyhemoglobin Sodium 136 L Potassium Chloride 97.8 L Carbon Dioxide BUN Creatinine 0.3 L Glucose 105 H POC Glucose 130 H Lactic Acid Calcium 7.8 L Magnesium Iron TIBC Ferritin AST ALT Lactate Dehydrogenase Troponin T C-Reactive Protein Total Protein Albumin Prealbumin Cholesterol LDL Cholesterol Direct HDL Cholesterol Urine WBC (Auto) Vancomycin Trough Coronavirus (PCR) Crossmatch 08/08/19 08/08/19 08/09/19 11:46 18:35 00:12 WBC RBC Hgb Hct MCV MCH MCHC RDW Plt Count Lymph % (Auto) Payne % (Auto) Lymph # Payne # Baso # Seg Neutrophils % Seg Neuts % (Manual) Lymphocytes % (Manual) Monocytes % (Manual) Basophils % (Manual) Nucleated RBC % Seg Neutrophils # Seg Neutrophils # Man Lymphocytes # (Manual) Monocytes # (Manual) Eosinophils # (Manual) Basophils # (Manual) PT INR D-Dimer ABG pH ABG pO2 ABG HCO3 ABG O2 Saturation ABG Base Excess ABG Hemoglobin Oxyhemoglobin Sodium Potassium Chloride Carbon Dioxide BUN Creatinine Glucose POC Glucose 117 H 117 H 117 H Lactic Acid Calcium Magnesium Iron TIBC Ferritin AST ALT Lactate Dehydrogenase Troponin T C-Reactive Protein Total Protein Albumin Prealbumin Cholesterol LDL Cholesterol Direct HDL Cholesterol Urine WBC (Auto) Vancomycin Trough Coronavirus (PCR) Crossmatch 08/09/19 08/09/19 08/09/19 05:33 12:22 17:48 WBC RBC Hgb Hct MCV MCH MCHC RDW Plt Count Lymph % (Auto) Payne % (Auto) Lymph # Payne # Baso # Seg Neutrophils % Seg Neuts % (Manual) Lymphocytes % (Manual) Monocytes % (Manual) Basophils % (Manual) Nucleated RBC % Seg Neutrophils # Seg Neutrophils # Man Lymphocytes # (Manual) Monocytes # (Manual) Eosinophils # (Manual) Basophils # (Manual) PT INR D-Dimer ABG pH ABG pO2 ABG HCO3 ABG O2 Saturation ABG Base Excess ABG Hemoglobin Oxyhemoglobin Sodium Potassium Chloride Carbon Dioxide BUN Creatinine Glucose POC Glucose 119 H 133 H 123 H Lactic Acid Calcium Magnesium Iron TIBC Ferritin AST ALT Lactate Dehydrogenase Troponin T C-Reactive Protein Total Protein Albumin Prealbumin Cholesterol LDL Cholesterol Direct HDL Cholesterol Urine WBC (Auto) Vancomycin Trough Coronavirus (PCR) Crossmatch 08/09/19 08/09/19 08/10/19 17:59 18:15 00:02 WBC RBC Hgb 6.7 L Hct 20.4 L MCV MCH MCHC RDW Plt Count Lymph % (Auto) Payne % (Auto) Lymph # Payne # Baso # Seg Neutrophils % Seg Neuts % (Manual) Lymphocytes % (Manual) Monocytes % (Manual) Basophils % (Manual) Nucleated RBC % Seg Neutrophils # Seg Neutrophils # Man Lymphocytes # (Manual) Monocytes # (Manual) Eosinophils # (Manual) Basophils # (Manual) PT INR D-Dimer ABG pH ABG pO2 ABG HCO3 ABG O2 Saturation ABG Base Excess ABG Hemoglobin Oxyhemoglobin Sodium Potassium Chloride Carbon Dioxide BUN Creatinine Glucose POC Glucose 124 H Lactic Acid Calcium Magnesium Iron TIBC Ferritin AST ALT Lactate Dehydrogenase Troponin T C-Reactive Protein Total Protein Albumin Prealbumin Cholesterol LDL Cholesterol Direct HDL Cholesterol Urine WBC (Auto) Vancomycin Trough Coronavirus (PCR) Crossmatch See Detail 08/10/19 08/10/19 08/10/19 05:47 08:00 08:00 WBC 16.9 H RBC 2.94 L Hgb 8.2 L Hct 24.9 L MCV MCH MCHC RDW 17.0 H Plt Count 661 H Lymph % (Auto) Payne % (Auto) Lymph # Payne # Baso # Seg Neutrophils % Seg Neuts % (Manual) Lymphocytes % (Manual) Monocytes % (Manual) Basophils % (Manual) Nucleated RBC % Seg Neutrophils # Seg Neutrophils # Man Lymphocytes # (Manual) Monocytes # (Manual) Eosinophils # (Manual) Basophils # (Manual) PT INR D-Dimer ABG pH ABG pO2 ABG HCO3 ABG O2 Saturation ABG Base Excess ABG Hemoglobin Oxyhemoglobin Sodium Potassium Chloride Carbon Dioxide BUN Creatinine 0.3 L Glucose 116 H POC Glucose 148 H Lactic Acid Calcium 7.7 L Magnesium Iron TIBC Ferritin AST ALT Lactate Dehydrogenase Troponin T C-Reactive Protein Total Protein Albumin Prealbumin Cholesterol LDL Cholesterol Direct HDL Cholesterol Urine WBC (Auto) Vancomycin Trough Coronavirus (PCR) Crossmatch 08/10/19 08/10/19 08/10/19 12:38 18:06 23:56 WBC RBC Hgb Hct MCV MCH MCHC RDW Plt Count Lymph % (Auto) Payne % (Auto) Lymph # Payne # Baso # Seg Neutrophils % Seg Neuts % (Manual) Lymphocytes % (Manual) Monocytes % (Manual) Basophils % (Manual) Nucleated RBC % Seg Neutrophils # Seg Neutrophils # Man Lymphocytes # (Manual) Monocytes # (Manual) Eosinophils # (Manual) Basophils # (Manual) PT INR D-Dimer ABG pH ABG pO2 ABG HCO3 ABG O2 Saturation ABG Base Excess ABG Hemoglobin Oxyhemoglobin Sodium Potassium Chloride Carbon Dioxide BUN Creatinine Glucose POC Glucose 113 H 126 H 115 H Lactic Acid Calcium Magnesium Iron TIBC Ferritin AST ALT Lactate Dehydrogenase Troponin T C-Reactive Protein Total Protein Albumin Prealbumin Cholesterol LDL Cholesterol Direct HDL Cholesterol Urine WBC (Auto) Vancomycin Trough Coronavirus (PCR) Crossmatch 08/10/19 08/11/19 08/12/19 Unknown 18:10 03:30 WBC 14.4 H RBC 2.58 L Hgb 7.4 L Hct 22.1 L MCV MCH MCHC RDW 17.4 H Plt Count 786 H Lymph % (Auto) Payne % (Auto) Lymph # Payne # Baso # Seg Neutrophils % Seg Neuts % (Manual) Lymphocytes % (Manual) Monocytes % (Manual) Basophils % (Manual) Nucleated RBC % Seg Neutrophils # Seg Neutrophils # Man Lymphocytes # (Manual) Monocytes # (Manual) Eosinophils # (Manual) Basophils # (Manual) PT INR D-Dimer ABG pH ABG pO2 ABG HCO3 ABG O2 Saturation ABG Base Excess ABG Hemoglobin Oxyhemoglobin Sodium Potassium Chloride Carbon Dioxide BUN Creatinine Glucose POC Glucose 106 H Lactic Acid Calcium Magnesium Iron TIBC Ferritin AST ALT Lactate Dehydrogenase Troponin T C-Reactive Protein Total Protein Albumin Prealbumin Cholesterol LDL Cholesterol Direct HDL Cholesterol Urine WBC (Auto) Vancomycin Trough Coronavirus (PCR) Positive A Crossmatch 08/12/19 08/12/19 08/13/19 03:30 12:08 05:25 WBC RBC Hgb Hct MCV MCH MCHC RDW Plt Count Lymph % (Auto) Payne % (Auto) Lymph # Payne # Baso # Seg Neutrophils % Seg Neuts % (Manual) Lymphocytes % (Manual) Monocytes % (Manual) Basophils % (Manual) Nucleated RBC % Seg Neutrophils # Seg Neutrophils # Man Lymphocytes # (Manual) Monocytes # (Manual) Eosinophils # (Manual) Basophils # (Manual) PT INR D-Dimer ABG pH ABG pO2 ABG HCO3 ABG O2 Saturation ABG Base Excess ABG Hemoglobin Oxyhemoglobin Sodium Potassium Chloride Carbon Dioxide BUN 7 L Creatinine 0.3 L Glucose 117 H POC Glucose 112 H 126 H Lactic Acid Calcium 7.8 L Magnesium Iron TIBC Ferritin AST ALT Lactate Dehydrogenase Troponin T C-Reactive Protein Total Protein Albumin Prealbumin Cholesterol LDL Cholesterol Direct HDL Cholesterol Urine WBC (Auto) Vancomycin Trough Coronavirus (PCR) Crossmatch 08/13/19 08/13/19 08/13/19 11:36 17:10 19:06 WBC RBC Hgb Hct MCV MCH MCHC RDW Plt Count Lymph % (Auto) Payne % (Auto) Lymph # Payne # Baso # Seg Neutrophils % Seg Neuts % (Manual) Lymphocytes % (Manual) Monocytes % (Manual) Basophils % (Manual) Nucleated RBC % Seg Neutrophils # Seg Neutrophils # Man Lymphocytes # (Manual) Monocytes # (Manual) Eosinophils # (Manual) Basophils # (Manual) PT INR D-Dimer ABG pH ABG pO2 105.0 H ABG HCO3 28.5 H ABG O2 Saturation ABG Base Excess 3.5 H ABG Hemoglobin 7.8 L Oxyhemoglobin Sodium Potassium Chloride Carbon Dioxide BUN Creatinine Glucose POC Glucose 143 H 107 H Lactic Acid Calcium Magnesium Iron TIBC Ferritin AST ALT Lactate Dehydrogenase Troponin T C-Reactive Protein Total Protein Albumin Prealbumin Cholesterol LDL Cholesterol Direct HDL Cholesterol Urine WBC (Auto) Vancomycin Trough Coronavirus (PCR) Crossmatch 08/13/19 08/14/19 08/14/19 23:23 05:00 05:00 WBC 14.3 H RBC 2.76 L Hgb 7.8 L Hct 23.9 L MCV MCH MCHC RDW 18.7 H Plt Count 896 H Lymph % (Auto) Payne % (Auto) Lymph # Payne # Baso # Seg Neutrophils % Seg Neuts % (Manual) Lymphocytes % (Manual) Monocytes % (Manual) Basophils % (Manual) Nucleated RBC % Seg Neutrophils # Seg Neutrophils # Man Lymphocytes # (Manual) Monocytes # (Manual) Eosinophils # (Manual) Basophils # (Manual) PT INR D-Dimer ABG pH ABG pO2 ABG HCO3 ABG O2 Saturation ABG Base Excess ABG Hemoglobin Oxyhemoglobin Sodium Potassium Chloride Carbon Dioxide BUN 6 L Creatinine 0.3 L Glucose POC Glucose 125 H Lactic Acid Calcium 8.2 L Magnesium Iron TIBC Ferritin AST ALT Lactate Dehydrogenase Troponin T C-Reactive Protein Total Protein Albumin Prealbumin Cholesterol LDL Cholesterol Direct HDL Cholesterol Urine WBC (Auto) Vancomycin Trough Coronavirus (PCR) Crossmatch 08/14/19 08/15/19 08/15/19 05:07 00:25 05:42 WBC RBC Hgb Hct MCV MCH MCHC RDW Plt Count Lymph % (Auto) Payne % (Auto) Lymph # Payne # Baso # Seg Neutrophils % Seg Neuts % (Manual) Lymphocytes % (Manual) Monocytes % (Manual) Basophils % (Manual) Nucleated RBC % Seg Neutrophils # Seg Neutrophils # Man Lymphocytes # (Manual) Monocytes # (Manual) Eosinophils # (Manual) Basophils # (Manual) PT INR D-Dimer ABG pH ABG pO2 ABG HCO3 ABG O2 Saturation ABG Base Excess ABG Hemoglobin Oxyhemoglobin Sodium Potassium Chloride Carbon Dioxide BUN Creatinine Glucose POC Glucose 128 H 117 H 115 H Lactic Acid Calcium Magnesium Iron TIBC Ferritin AST ALT Lactate Dehydrogenase Troponin T C-Reactive Protein Total Protein Albumin Prealbumin Cholesterol LDL Cholesterol Direct HDL Cholesterol Urine WBC (Auto) Vancomycin Trough Coronavirus (PCR) Crossmatch 08/15/19 08/15/19 08/15/19 06:10 06:10 06:10 WBC 11.6 H RBC 2.68 L Hgb 7.7 L Hct 23.3 L MCV MCH MCHC RDW 19.2 H Plt Count 885 H Lymph % (Auto) Payne % (Auto) Lymph # Payne # Baso # Seg Neutrophils % Seg Neuts % (Manual) Lymphocytes % (Manual) Monocytes % (Manual) Basophils % (Manual) Nucleated RBC % Seg Neutrophils # Seg Neutrophils # Man Lymphocytes # (Manual) Monocytes # (Manual) Eosinophils # (Manual) Basophils # (Manual) PT INR D-Dimer ABG pH ABG pO2 ABG HCO3 ABG O2 Saturation ABG Base Excess ABG Hemoglobin Oxyhemoglobin Sodium Potassium Chloride Carbon Dioxide BUN 6 L Creatinine 0.3 L Glucose 107 H POC Glucose Lactic Acid Calcium 8.2 L Magnesium 1.50 L Iron TIBC Ferritin AST ALT Lactate Dehydrogenase Troponin T C-Reactive Protein Total Protein Albumin Prealbumin Cholesterol LDL Cholesterol Direct HDL Cholesterol Urine WBC (Auto) Vancomycin Trough Coronavirus (PCR) Crossmatch 08/15/19 08/16/19 08/16/19 12:12 00:05 05:00 WBC 13.3 H RBC 2.87 L Hgb 8.1 L Hct 24.9 L MCV MCH MCHC RDW 18.7 H Plt Count 962 H Lymph % (Auto) Payne % (Auto) Lymph # Payne # Baso # Seg Neutrophils % Seg Neuts % (Manual) Lymphocytes % (Manual) Monocytes % (Manual) Basophils % (Manual) Nucleated RBC % Seg Neutrophils # Seg Neutrophils # Man Lymphocytes # (Manual) Monocytes # (Manual) Eosinophils # (Manual) Basophils # (Manual) PT INR D-Dimer ABG pH ABG pO2 ABG HCO3 ABG O2 Saturation ABG Base Excess ABG Hemoglobin Oxyhemoglobin Sodium Potassium Chloride Carbon Dioxide BUN Creatinine Glucose POC Glucose 112 H 111 H Lactic Acid Calcium Magnesium Iron TIBC Ferritin AST ALT Lactate Dehydrogenase Troponin T C-Reactive Protein Total Protein Albumin Prealbumin Cholesterol LDL Cholesterol Direct HDL Cholesterol Urine WBC (Auto) Vancomycin Trough Coronavirus (PCR) Crossmatch 08/16/19 08/16/19 08/16/19 05:00 05:00 23:35 WBC RBC Hgb Hct MCV MCH MCHC RDW Plt Count Lymph % (Auto) Payne % (Auto) Lymph # Payne # Baso # Seg Neutrophils % Seg Neuts % (Manual) Lymphocytes % (Manual) Monocytes % (Manual) Basophils % (Manual) Nucleated RBC % Seg Neutrophils # Seg Neutrophils # Man Lymphocytes # (Manual) Monocytes # (Manual) Eosinophils # (Manual) Basophils # (Manual) PT INR D-Dimer ABG pH ABG pO2 ABG HCO3 ABG O2 Saturation ABG Base Excess ABG Hemoglobin Oxyhemoglobin Sodium 135 L Potassium Chloride Carbon Dioxide BUN 6 L Creatinine 0.3 L Glucose POC Glucose 108 H Lactic Acid Calcium 8.2 L Magnesium Iron TIBC Ferritin AST ALT Lactate Dehydrogenase Troponin T C-Reactive Protein 2.70 H Total Protein Albumin 2.1 L Prealbumin Cholesterol LDL Cholesterol Direct HDL Cholesterol Urine WBC (Auto) Vancomycin Trough Coronavirus (PCR) Crossmatch 08/17/19 08/17/19 08/17/19 05:15 20:20 23:42 WBC RBC Hgb Hct MCV MCH MCHC RDW Plt Count Lymph % (Auto) Payne % (Auto) Lymph # Payne # Baso # Seg Neutrophils % Seg Neuts % (Manual) Lymphocytes % (Manual) Monocytes % (Manual) Basophils % (Manual) Nucleated RBC % Seg Neutrophils # Seg Neutrophils # Man Lymphocytes # (Manual) Monocytes # (Manual) Eosinophils # (Manual) Basophils # (Manual) PT INR D-Dimer ABG pH ABG pO2 ABG HCO3 27.8 H ABG O2 Saturation ABG Base Excess ABG Hemoglobin 11.4 L Oxyhemoglobin 94.6 L Sodium Potassium Chloride Carbon Dioxide BUN Creatinine Glucose POC Glucose 138 H 132 H Lactic Acid Calcium Magnesium Iron TIBC Ferritin AST ALT Lactate Dehydrogenase Troponin T C-Reactive Protein Total Protein Albumin Prealbumin Cholesterol LDL Cholesterol Direct HDL Cholesterol Urine WBC (Auto) Vancomycin Trough Coronavirus (PCR) Crossmatch 08/18/19 08/18/19 08/18/19 06:00 06:00 12:02 WBC 19.7 H RBC 3.30 L Hgb 9.3 L Hct 28.5 L MCV MCH MCHC RDW 18.9 H Plt Count 923 H Lymph % (Auto) Payne % (Auto) Lymph # Payne # Baso # Seg Neutrophils % Seg Neuts % (Manual) Lymphocytes % (Manual) Monocytes % (Manual) Basophils % (Manual) Nucleated RBC % Seg Neutrophils # Seg Neutrophils # Man Lymphocytes # (Manual) Monocytes # (Manual) Eosinophils # (Manual) Basophils # (Manual) PT INR D-Dimer ABG pH ABG pO2 ABG HCO3 ABG O2 Saturation ABG Base Excess ABG Hemoglobin Oxyhemoglobin Sodium 136 L Potassium Chloride Carbon Dioxide BUN Creatinine 0.4 L Glucose 71 L POC Glucose 123 H Lactic Acid Calcium Magnesium Iron TIBC Ferritin AST ALT Lactate Dehydrogenase Troponin T C-Reactive Protein Total Protein Albumin Prealbumin Cholesterol LDL Cholesterol Direct HDL Cholesterol Urine WBC (Auto) Vancomycin Trough Coronavirus (PCR) Crossmatch 08/18/19 08/18/19 08/19/19 18:23 23:16 04:57 WBC RBC Hgb Hct MCV MCH MCHC RDW Plt Count Lymph % (Auto) Payne % (Auto) Lymph # Payne # Baso # Seg Neutrophils % Seg Neuts % (Manual) Lymphocytes % (Manual) Monocytes % (Manual) Basophils % (Manual) Nucleated RBC % Seg Neutrophils # Seg Neutrophils # Man Lymphocytes # (Manual) Monocytes # (Manual) Eosinophils # (Manual) Basophils # (Manual) PT INR D-Dimer ABG pH ABG pO2 ABG HCO3 ABG O2 Saturation ABG Base Excess ABG Hemoglobin Oxyhemoglobin Sodium Potassium Chloride Carbon Dioxide BUN Creatinine Glucose POC Glucose 140 H 159 H 134 H Lactic Acid Calcium Magnesium Iron TIBC Ferritin AST ALT Lactate Dehydrogenase Troponin T C-Reactive Protein Total Protein Albumin Prealbumin Cholesterol LDL Cholesterol Direct HDL Cholesterol Urine WBC (Auto) Vancomycin Trough Coronavirus (PCR) Crossmatch 08/19/19 08/19/19 07:44 08:17 WBC 30.5 H RBC 2.87 L Hgb 7.9 L Hct 24.5 L MCV MCH MCHC RDW 18.8 H Plt Count 772 H Lymph % (Auto) Payne % (Auto) Lymph # Payne # Baso # Seg Neutrophils % Seg Neuts % (Manual) 89.0 H Lymphocytes % (Manual) 4.0 L Monocytes % (Manual) Basophils % (Manual) 2.0 H Nucleated RBC % Seg Neutrophils # Seg Neutrophils # Man 27.1 H Lymphocytes # (Manual) Monocytes # (Manual) 0.9 H Eosinophils # (Manual) 0.6 H Basophils # (Manual) 0.6 H PT INR D-Dimer ABG pH ABG pO2 ABG HCO3 ABG O2 Saturation ABG Base Excess ABG Hemoglobin Oxyhemoglobin Sodium 136 L Potassium Chloride Carbon Dioxide BUN Creatinine 0.3 L Glucose POC Glucose Lactic Acid Calcium 8.2 L Magnesium Iron TIBC Ferritin AST ALT Lactate Dehydrogenase Troponin T C-Reactive Protein Total Protein Albumin Prealbumin Cholesterol LDL Cholesterol Direct HDL Cholesterol Urine WBC (Auto) Vancomycin Trough Coronavirus (PCR) Crossmatch Allied health notes reviewed: nursing
[2019-08-19] MEDS: oxyCODONE /ACETAMINOPHEN 5-325MG TAB PO PRN (13:37)
[2019-08-19] MEDS: fentaNYL 100 MCG/2 ML INJ IV PRN (14:50)
[2019-08-19] MEDS: METOPROLOL TARTRATE 5 MG/5 ML INJ IV PRN (15:45)
--- NOTE | 2019-08-19 17:02 | XRay Report ---
CHEST 1 VIEW INDICATION / CLINICAL INFORMATION: diaphoresis/fever. COMPARISON: 1301 hours FINDINGS: SUPPORT DEVICES: Lines and tubes are unchanged. HEART / MEDIASTINUM: No significant abnormality. LUNGS / PLEURA: Bilateral lung consolidation appears essentially unchanged. No edema or effusion. No pneumothorax. ADDITIONAL FINDINGS: Healed left-sided rib fractures are seen with evidence of cervical. IMPRESSION: 1. No significant change Signer Name: Mikey Simmons MD Signed: 08/19/2019 4:58 PM Workstation Name: [id number]
[2019-08-19] MEDS: ACETAMINOPHEN 325 MG/10.15 ML ORAL LIQD UNIT DOSE PO PRN (22:03)
[2019-08-20] MEDS: INSULIN LISPRO 100 UNIT/ML SUB-Q SCH ×5 (00:04→18:30)
[2019-08-20 05:00] LABS: Hematocrit 23.1 % (35.5-45.6); Hemoglobin 7.6 gm/dl (11.8-15.2); Mean Corpuscular HGB Conc 33 % (32-34); Mean Corpuscular Volume 86 fl (84-94); Platelet Count 690 K/mm3 (140-440); Red Cell Distribution Width 18.9 % (13.2-15.2)
[2019-08-20 05:13] LABS: BUN/Creatinine Ratio 40; Blood Urea Nitrogen 12 mg/dL (9-20); Calcium 8.2 mg/dL (8.4-10.2)
[2019-08-20] MEDS: SODIUM HYPOCHLORITE, DAKIN'S 1/2 STRENGTH (0.25%) 473 ML TOPICAL SOLN TP SCH ×3 (07:53→21:44)
--- NOTE | 2019-08-20 09:11 | Progress Note ---
Assessment and Plan S/p Cardiopulmonary arrest with ROSC Severe Sepsis with septic shock. Acute hypoxemic respiratory failure on MVS COVID-19 positive with elevated markers Bilateral pneumonia Elevated LFTs. Oropharyngeal dysphagia s/p PEG Acute kidney injury Decubitus ulcers-unstageable Moderate protein calorie malnutriton Hujyyint-dy-myxfyg metabolic acidosis Leukocytosis Thrombocytosis-worse Microcytic anemia Continue with PSV as tolerated, full support at night Will continue to assess on a daily basis suitability for liberation from MVS while awaiting COVID negative testing. Repeat COVID testing remains positive ( 08/09/2019). Repeat testing once negative reconsult surgery for trach and PEG placement Continue with NGT feeding with aspiration precautions Complete course of antibiotics per ID- currently onLevofloxacin Supportive transfusions to keep HgB >7g/dL Continue all care as documented -Continue to coordinate sedation interruption( RN) and SBT( RT) today to optimize chances of success with weaning trial -ABG, CXR prn - continue airborne, droplet and contact isolation for COVID-19 - continue wound care per WCT - sedation prn for target RASS 0 to -1 - continue to wean supplemental oxygen for target O2 sat's > 90% - Daily SAT's and SBT assessment as tolerated - VAP bundle addressed - continue lung protective strategies - continue bronchodilators with pulmonary hygiene per RT - wean per pulmonary driven protocols otherwise - accuchecks with glycemic control per SSI (While critically ill target blood glucose of 140-180 mg/dL; avoid hypoglycemia) - continue to avoid benzodiazepines, reduce the possibility of delirium - prn analgesia per CPOT score - Maintenance of sleep-wake cycle, avoid delirium - continue enteral nutritional support at goal rate as tolerated - VTE prophylaxis-Enoxaparin -Stress ulcer prophylaxis- Famotidine - PT/OT/ROM exercises - continue mobility protocol, off loading and skin assessment for pressure ulcer prevention - Monitor hemodynamics closely -Wright catheter in this critically ill patient with unstageable sacral decubitus ulcer - continue other care per attending / other consultants - discharge planning ongoing concurrently .... Re-evaluate in am & prn CONDITION: CRITICAL PROGNOSIS: GUARDED CODE STATUS: DNAR Called his family to discuss goals of care, wants us to continue to treat aggressively at this time. The high probability of a clinically significant, sudden or life-threatening deterioration of the [respiratory ,cardiovascular, neurology] system(s) required my full and direct attention, intervention and personal management. The aggregate critical care time was [31] minutes without overlap. Time includes spent on; [x] Data Review and interpretation [x] Patient assessment and monitoring of vital signs [x] Documentation [x] Medication orders and management Subjective Date of service: 08/20/19 Principal diagnosis: Bilateral pneumonia, severe sepsis with septic shock, encephalopathy Interval history: The patient is a 69-year-old male with CVA, hypertension, dementia, schizophrenia, alcohol use disorder was admitted to the emergency room after being brought in by EMS with progressive shortness of breath and unresponsiveness. He was noted to have agonal breathing and a faint pulse requiring CPR. Patient was intubated and brought to the hospital. It seems, patient was on home hospice. Currently, remains critically ill, intubated, on mechanical ventilation. His COVID test resulted positive. Patient is seen today for: s/p cardiopulmonary arrest with ROSC; Ac hypoxemic Resp failure on MVS; Severe sepsis with Shock; Bilateral Pneumonia; POSITIVE coronavirus-19 infection. Seen and examined at bedside; 24hour events reviewed; nursing and respiratory care staff consulted; no adverse overnight events reported to me; resting in bed.No fevers; Remains COVID positive On MVS , tolerating daily PSV trials at this time; on fentanyl at 1mcg, off norepinephrine Tolerating tube feedings, Mental status changes persist, will spontaneously open eyes Objective Vital Signs - 12hr 08/19/19 08/19/19 08/20/19 22:00 23:00 00:00 Temperature 99.8 F H Pulse Rate 110 H 106 H 103 H Pulse Rate [ 112 H From Monitor] Pulse Rate [ 112 H Left Dorsalis Pedis] Pulse Rate [ 112 H Left Radial] Pulse Rate [ 112 H Right Dorsalis Pedis] Pulse Rate [ 112 H Right Radial] Respiratory 25 H Rate Respiratory 30 H Rate [Back] Blood Pressure 149/81 127/64 114/54 O2 Sat by Pulse 100 98 97 Oximetry 08/20/19 08/20/19 08/20/19 00:21 01:00 02:00 Temperature Pulse Rate 101 H 108 H 86 Pulse Rate [ From Monitor] Pulse Rate [ Left Dorsalis Pedis] Pulse Rate [ Left Radial] Pulse Rate [ Right Dorsalis Pedis] Pulse Rate [ Right Radial] Respiratory Rate Respiratory Rate [Back] Blood Pressure 129/59 124/68 116/56 O2 Sat by Pulse 100 99 100 Oximetry 08/20/19 08/20/19 08/20/19 03:00 04:00 04:44 Temperature 100.7 F H Pulse Rate 105 H 103 H 105 H Pulse Rate [ 104 H From Monitor] Pulse Rate [ 104 H Left Dorsalis Pedis] Pulse Rate [ 104 H Left Radial] Pulse Rate [ 104 H Right Dorsalis Pedis] Pulse Rate [ 104 H Right Radial] Respiratory 23 Rate Respiratory Rate [Back] Blood Pressure 115/56 140/68 138/67 O2 Sat by Pulse 100 99 100 Oximetry 08/20/19 08/20/19 08/20/19 05:00 06:00 07:00 Temperature Pulse Rate 101 H 102 H 120 H Pulse Rate [ From Monitor] Pulse Rate [ Left Dorsalis Pedis] Pulse Rate [ Left Radial] Pulse Rate [ Right Dorsalis Pedis] Pulse Rate [ Right Radial] Respiratory Rate Respiratory Rate [Back] Blood Pressure 134/67 139/70 132/74 O2 Sat by Pulse 100 99 99 Oximetry 08/20/19 08:00 Temperature 100.2 F H Pulse Rate 120 H Pulse Rate [ 116 H From Monitor] Pulse Rate [ 116 H Left Dorsalis Pedis] Pulse Rate [ 116 H Left Radial] Pulse Rate [ 116 H Right Dorsalis Pedis] Pulse Rate [ 116 H Right Radial] Respiratory 24 Rate Respiratory Rate [Back] Blood Pressure 129/77 O2 Sat by Pulse 99 Oximetry Constitutional: appears uncomfortable, other (eelderly and chronically ill looking AAM, normocep[krystina;ic with mildly increased respiratory effort at rest) Eyes: non-icteric ENT: oropharynx moist, other (ETT 24 cm Pawan) Neck: supple, no lymphadenopathy, no JVD Effort: very labored Ascultation: Bilateral: diminished breath sounds, rhonchi Percussion: Bilateral: not dull Cardiovascular: regular rate and rhythm Gastrointestinal: normoactive bowel sounds, soft, non-tender, non-distended, o ther (+ PEG tube with mild TF leakage) Integumentary: decubitus ulcer (sacral) Extremities: no cyanosis, no edema, pink and warm, pulses normal Neurologic: pupils equal and round, unable to assess Psychiatric: other (Unable to assess re: AMS) CBC and BMP: 08/20/19 Unknown 08/20/19 Unknown ABG, PT/INR, D-dimer: ABG ABG pH 7.405 pH Units (7.350-7.450) 08/17/19 20:20 ABG pCO2 45.3 mm Hg 08/17/19 20:20 ABG pO2 84.2 mm Hg (80.0-90.0) 08/17/19 20:20 ABG O2 Saturation 96.9 % (95.0-99.0) 08/17/19 20:20 PT/INR, D-dimer PT 16.0 Sec. (12.2-14.9) H 07/03/19 22:20 INR 1.26 (0.87-1.13) H 07/03/19 22:20 D-Dimer 1808.06 ng/mlDDU (0-234) H 08/07/19 10:24 Abnormal lab findings: Abnormal Labs 07/03/19 07/03/19 07/03/19 19:57 21:10 21:13 WBC RBC Hgb Hct MCV MCH MCHC RDW Plt Count Lymph % (Auto) [place] % (Auto) Lymph # [place] # Baso # Seg Neutrophils % Seg Neuts % (Manual) Lymphocytes % (Manual) Monocytes % (Manual) Basophils % (Manual) Nucleated RBC % Seg Neutrophils # Seg Neutrophils # Man Lymphocytes # (Manual) Monocytes # (Manual) Eosinophils # (Manual) Basophils # (Manual) PT INR D-Dimer ABG pH 7.238 L ABG pO2 210.8 H ABG HCO3 15.4 L ABG O2 Saturation 99.2 H ABG Base Excess -11.1 L ABG Hemoglobin 8.0 L Oxyhemoglobin Sodium 124 L Potassium Chloride 92.9 L Carbon Dioxide 10 L BUN 23 H Creatinine 0.5 L Glucose 118 H POC Glucose Lactic Acid Calcium 7.0 L Magnesium Iron TIBC Ferritin AST 70 H ALT 88 H Lactate Dehydrogenase Troponin T 0.032 H C-Reactive Protein Total Protein 5.0 L Albumin 1.8 L Prealbumin Cholesterol 47 L LDL Cholesterol Direct 25 L HDL Cholesterol 20 L Urine WBC (Auto) 12.0 H Vancomycin Trough Coronavirus (PCR) Crossmatch 07/03/19 07/03/19 07/03/19 22:20 22:20 22:20 WBC 30.5 H RBC 2.96 L Hgb 7.7 L Hct 23.9 L MCV 81 L MCH 26 L MCHC RDW 18.6 H Plt Count 459 H Lymph % (Auto) [place] % (Auto) Lymph # [place] # Baso # Seg Neutrophils % Seg Neuts % (Manual) 93.0 H Lymphocytes % (Manual) 0.5 L Monocytes % (Manual) Basophils % (Manual) Nucleated RBC % Seg Neutrophils # Seg Neutrophils # Man 28.4 H Lymphocytes # (Manual) 0.2 L Monocytes # (Manual) Eosinophils # (Manual) Basophils # (Manual) PT 16.0 H INR 1.26 H D-Dimer ABG pH ABG pO2 ABG HCO3 ABG O2 Saturation ABG Base Excess ABG Hemoglobin Oxyhemoglobin Sodium Potassium Chloride Carbon Dioxide BUN Creatinine Glucose POC Glucose Lactic Acid 6.90 H* Calcium Magnesium Iron TIBC Ferritin AST ALT Lactate Dehydrogenase Troponin T C-Reactive Protein Total Protein Albumin Prealbumin Cholesterol LDL Cholesterol Direct HDL Cholesterol Urine WBC (Auto) Vancomycin Trough Coronavirus (PCR) Crossmatch 07/03/19 07/04/19 07/04/19 23:58 05:15 07:05 WBC 17.1 H RBC 3.22 L Hgb 8.3 L Hct 25.4 L MCV 79 L MCH 26 L MCHC RDW 18.6 H Plt Count Lymph % (Auto) [place] % (Auto) Lymph # [place] # Baso # Seg Neutrophils % Seg Neuts % (Manual) 74.0 H Lymphocytes % (Manual) 0 L Monocytes % (Manual) Basophils % (Manual) Nucleated RBC % Seg Neutrophils # Seg Neutrophils # Man 12.7 H Lymphocytes # (Manual) 0.0 L Monocytes # (Manual) Eosinophils # (Manual) Basophils # (Manual) PT INR D-Dimer ABG pH 7.310 L ABG pO2 73.2 L ABG HCO3 17.8 L ABG O2 Saturation 93.8 L ABG Base Excess -7.7 L ABG Hemoglobin 9.6 L Oxyhemoglobin 92.3 L Sodium Potassium Chloride Carbon Dioxide BUN Creatinine Glucose POC Glucose Lactic Acid 7.10 H* Calcium Magnesium Iron TIBC Ferritin AST ALT Lactate Dehydrogenase Troponin T C-Reactive Protein Total Protein Albumin Prealbumin Cholesterol LDL Cholesterol Direct HDL Cholesterol Urine WBC (Auto) Vancomycin Trough Coronavirus (PCR) Crossmatch 07/04/19 07/04/19 07/04/19 07:05 07:05 07:05 WBC RBC Hgb Hct MCV MCH MCHC RDW Plt Count Lymph % (Auto) [place] % (Auto) Lymph # [place] # Baso # Seg Neutrophils % Seg Neuts % (Manual) Lymphocytes % (Manual) Monocytes % (Manual) Basophils % (Manual) Nucleated RBC % Seg Neutrophils # Seg Neutrophils # Man Lymphocytes # (Manual) Monocytes # (Manual) Eosinophils # (Manual) Basophils # (Manual) PT INR D-Dimer ABG pH ABG pO2 ABG HCO3 ABG O2 Saturation ABG Base Excess ABG Hemoglobin Oxyhemoglobin Sodium 120 L Potassium 5.1 H Chloride 90.0 L Carbon Dioxide 14 L BUN 26 H Creatinine 0.5 L Glucose POC Glucose Lactic Acid 3.30 H* Calcium 8.0 L Magnesium Iron 9 L TIBC 97 L Ferritin AST 73 H ALT 91 H Lactate Dehydrogenase Troponin T C-Reactive Protein Total Protein 5.5 L Albumin 2.0 L Prealbumin Cholesterol LDL Cholesterol Direct HDL Cholesterol Urine WBC (Auto) Vancomycin Trough Coronavirus (PCR) Crossmatch 07/04/19 07/04/19 07/04/19 09:39 09:39 09:39 WBC RBC Hgb Hct MCV MCH MCHC RDW Plt Count Lymph % (Auto) [place] % (Auto) Lymph # [place] # Baso # Seg Neutrophils % Seg Neuts % (Manual) Lymphocytes % (Manual) Monocytes % (Manual) Basophils % (Manual) Nucleated RBC % Seg Neutrophils # Seg Neutrophils # Man Lymphocytes # (Manual) Monocytes # (Manual) Eosinophils # (Manual) Basophils # (Manual) PT INR D-Dimer 1419.14 H ABG pH ABG pO2 ABG HCO3 ABG O2 Saturation ABG Base Excess ABG Hemoglobin Oxyhemoglobin Sodium Potassium Chloride Carbon Dioxide BUN Creatinine Glucose POC Glucose Lactic Acid Calcium Magnesium Iron TIBC Ferritin 1719.0 H AST ALT Lactate Dehydrogenase 234 H Troponin T C-Reactive Protein 15.50 H Total Protein Albumin Prealbumin Cholesterol LDL Cholesterol Direct HDL Cholesterol Urine WBC (Auto) Vancomycin Trough Coronavirus (PCR) Crossmatch 07/04/19 07/04/19 07/04/19 10:09 18:08 18:28 WBC RBC Hgb Hct MCV MCH MCHC RDW Plt Count Lymph % (Auto) [place] % (Auto) Lymph # [place] # Baso # Seg Neutrophils % Seg Neuts % (Manual) Lymphocytes % (Manual) Monocytes % (Manual) Basophils % (Manual) Nucleated RBC % Seg Neutrophils # Seg Neutrophils # Man Lymphocytes # (Manual) Monocytes # (Manual) Eosinophils # (Manual) Basophils # (Manual) PT INR D-Dimer ABG pH ABG pO2 ABG HCO3 ABG O2 Saturation ABG Base Excess ABG Hemoglobin Oxyhemoglobin Sodium 117 L* Potassium 5.6 H Chloride 90.3 L Carbon Dioxide 16 L BUN 28 H Creatinine 0.5 L Glucose 58 L POC Glucose 65 L Lactic Acid Calcium 8.2 L Magnesium Iron TIBC Ferritin AST ALT Lactate Dehydrogenase Troponin T C-Reactive Protein Total Protein Albumin Prealbumin Cholesterol LDL Cholesterol Direct HDL Cholesterol Urine WBC (Auto) Vancomycin Trough Coronavirus (PCR) Positive A Crossmatch 07/04/19 07/04/19 07/04/19 23:45 Unknown Unknown WBC RBC Hgb Hct MCV MCH MCHC RDW Plt Count Lymph % (Auto) [place] % (Auto) Lymph # [place] # Baso # Seg Neutrophils % Seg Neuts % (Manual) Lymphocytes % (Manual) Monocytes % (Manual) Basophils % (Manual) Nucleated RBC % Seg Neutrophils # Seg Neutrophils # Man Lymphocytes # (Manual) Monocytes # (Manual) Eosinophils # (Manual) Basophils # (Manual) PT INR D-Dimer 759.77 H ABG pH ABG pO2 ABG HCO3 ABG O2 Saturation ABG Base Excess ABG Hemoglobin Oxyhemoglobin Sodium 122 L Potassium Chloride 93.0 L Carbon Dioxide 19 L BUN 27 H Creatinine 0.5 L Glucose POC Glucose Lactic Acid Calcium 8.3 L Magnesium Iron TIBC Ferritin 1301.0 H AST ALT Lactate Dehydrogenase Troponin T C-Reactive Protein Total Protein Albumin Prealbumin Cholesterol LDL Cholesterol Direct HDL Cholesterol Urine WBC (Auto) Vancomycin Trough Coronavirus (PCR) Crossmatch 07/04/19 07/05/19 07/05/19 Unknown 03:20 04:00 WBC RBC Hgb Hct MCV MCH MCHC RDW Plt Count Lymph % (Auto) [place] % (Auto) Lymph # [place] # Baso # Seg Neutrophils % Seg Neuts % (Manual) Lymphocytes % (Manual) Monocytes % (Manual) Basophils % (Manual) Nucleated RBC % Seg Neutrophils # Seg Neutrophils # Man Lymphocytes # (Manual) Monocytes # (Manual) Eosinophils # (Manual) Basophils # (Manual) PT INR D-Dimer ABG pH ABG pO2 60.6 L ABG HCO3 ABG O2 Saturation 93.5 L ABG Base Excess -2.4 L ABG Hemoglobin 6.9 L Oxyhemoglobin 92.0 L Sodium 125 L Potassium Chloride 92.6 L Carbon Dioxide 19 L BUN 24 H Creatinine 0.6 L Glucose POC Glucose Lactic Acid Calcium 8.2 L Magnesium 1.40 L Iron TIBC Ferritin AST ALT Lactate Dehydrogenase 242 H Troponin T C-Reactive Protein 16.70 H Total Protein Albumin Prealbumin Cholesterol LDL Cholesterol Direct HDL Cholesterol Urine WBC (Auto) Vancomycin Trough Coronavirus (PCR) Crossmatch 07/05/19 07/05/19 07/05/19 10:11 16:15 17:54 WBC 46.4 H* RBC 2.77 L Hgb 7.2 L Hct 21.9 L MCV 79 L MCH 26 L MCHC RDW 19.0 H Plt Count Lymph % (Auto) [place] % (Auto) Lymph # [place] # Baso # Seg Neutrophils % Seg Neuts % (Manual) 82.0 H Lymphocytes % (Manual) 1.0 L Monocytes % (Manual) Basophils % (Manual) Nucleated RBC % Seg Neutrophils # Seg Neutrophils # Man 38.0 H Lymphocytes # (Manual) 0.5 L Monocytes # (Manual) Eosinophils # (Manual) Basophils # (Manual) PT INR D-Dimer ABG pH ABG pO2 ABG HCO3 ABG O2 Saturation ABG Base Excess ABG Hemoglobin Oxyhemoglobin Sodium Potassium Chloride Carbon Dioxide BUN Creatinine Glucose POC Glucose 69 L Lactic Acid Calcium Magnesium Iron TIBC Ferritin AST ALT Lactate Dehydrogenase Troponin T C-Reactive Protein Total Protein Albumin Prealbumin Cholesterol LDL Cholesterol Direct HDL Cholesterol Urine WBC (Auto) Vancomycin Trough 23.2 H Coronavirus (PCR) Crossmatch 07/05/19 07/06/19 07/06/19 19:58 00:27 00:27 WBC RBC Hgb Hct MCV MCH MCHC RDW Plt Count Lymph % (Auto) [place] % (Auto) Lymph # [place] # Baso # Seg Neutrophils % Seg Neuts % (Manual) Lymphocytes % (Manual) Monocytes % (Manual) Basophils % (Manual) Nucleated RBC % Seg Neutrophils # Seg Neutrophils # Man Lymphocytes # (Manual) Monocytes # (Manual) Eosinophils # (Manual) Basophils # (Manual) PT INR D-Dimer 1333.22 H ABG pH ABG pO2 ABG HCO3 ABG O2 Saturation ABG Base Excess ABG Hemoglobin Oxyhemoglobin Sodium 127 L Potassium Chloride Carbon Dioxide BUN Creatinine Glucose POC Glucose Lactic Acid Calcium Magnesium Iron TIBC Ferritin 977.1 H AST ALT Lactate Dehydrogenase Troponin T C-Reactive Protein Total Protein Albumin Prealbumin Cholesterol LDL Cholesterol Direct HDL Cholesterol Urine WBC (Auto) Vancomycin Trough Coronavirus (PCR) Crossmatch 07/06/19 07/06/19 07/06/19 00:27 02:00 02:56 WBC RBC Hgb Hct MCV MCH MCHC RDW Plt Count Lymph % (Auto) [place] % (Auto) Lymph # [place] # Baso # Seg Neutrophils % Seg Neuts % (Manual) Lymphocytes % (Manual) Monocytes % (Manual) Basophils % (Manual) Nucleated RBC % Seg Neutrophils # Seg Neutrophils # Man Lymphocytes # (Manual) Monocytes # (Manual) Eosinophils # (Manual) Basophils # (Manual) PT INR D-Dimer ABG pH ABG pO2 70.3 L ABG HCO3 ABG O2 Saturation 94.8 L ABG Base Excess ABG Hemoglobin 8.0 L Oxyhemoglobin 93.2 L Sodium Potassium Chloride Carbon Dioxide BUN Creatinine Glucose POC Glucose 117 H Lactic Acid Calcium Magnesium Iron TIBC Ferritin AST ALT Lactate Dehydrogenase 236 H Troponin T C-Reactive Protein 22.90 H Total Protein Albumin Prealbumin Cholesterol LDL Cholesterol Direct HDL Cholesterol Urine WBC (Auto) Vancomycin Trough Coronavirus (PCR) Crossmatch 07/06/19 07/06/19 07/06/19 03:49 03:49 07:40 WBC 38.8 H RBC 2.51 L Hgb 6.7 L Hct 19.9 L* MCV 79 L MCH 27 L MCHC RDW 19.2 H Plt Count Lymph % (Auto) [place] % (Auto) Lymph # [place] # Baso # Seg Neutrophils % Seg Neuts % (Manual) 90.5 H Lymphocytes % (Manual) 1.0 L Monocytes % (Manual) Basophils % (Manual) Nucleated RBC % Seg Neutrophils # Seg Neutrophils # Man 35.1 H Lymphocytes # (Manual) 0.4 L Monocytes # (Manual) Eosinophils # (Manual) Basophils # (Manual) PT INR D-Dimer ABG pH ABG pO2 ABG HCO3 ABG O2 Saturation ABG Base Excess ABG Hemoglobin Oxyhemoglobin Sodium 131 L Potassium Chloride 96.9 L Carbon Dioxide 18 L BUN 23 H Creatinine 0.5 L Glucose POC Glucose Lactic Acid Calcium 8.0 L Magnesium Iron TIBC Ferritin AST ALT Lactate Dehydrogenase Troponin T C-Reactive Protein Total Protein Albumin Prealbumin Cholesterol LDL Cholesterol Direct HDL Cholesterol Urine WBC (Auto) Vancomycin Trough Coronavirus (PCR) Crossmatch See Detail 07/06/19 07/06/19 07/06/19 12:38 14:39 20:00 WBC RBC Hgb Hct MCV MCH MCHC RDW Plt Count Lymph % (Auto) [place] % (Auto) Lymph # [place] # Baso # Seg Neutrophils % Seg Neuts % (Manual) Lymphocytes % (Manual) Monocytes % (Manual) Basophils % (Manual) Nucleated RBC % Seg Neutrophils # Seg Neutrophils # Man Lymphocytes # (Manual) Monocytes # (Manual) Eosinophils # (Manual) Basophils # (Manual) PT INR D-Dimer ABG pH ABG pO2 ABG HCO3 ABG O2 Saturation ABG Base Excess ABG Hemoglobin Oxyhemoglobin Sodium Potassium Chloride Carbon Dioxide BUN Creatinine Glucose POC Glucose 112 H 111 H 140 H Lactic Acid Calcium Magnesium Iron TIBC Ferritin AST ALT Lactate Dehydrogenase Troponin T C-Reactive Protein Total Protein Albumin Prealbumin Cholesterol LDL Cholesterol Direct HDL Cholesterol Urine WBC (Auto) Vancomycin Trough Coronavirus (PCR) Crossmatch 07/06/19 07/06/19 07/07/19 22:43 22:56 02:20 WBC RBC Hgb 7.9 L Hct 23.1 L MCV MCH MCHC RDW Plt Count Lymph % (Auto) [place] % (Auto) Lymph # [place] # Baso # Seg Neutrophils % Seg Neuts % (Manual) Lymphocytes % (Manual) Monocytes % (Manual) Basophils % (Manual) Nucleated RBC % Seg Neutrophils # Seg Neutrophils # Man Lymphocytes # (Manual) Monocytes # (Manual) Eosinophils # (Manual) Basophils # (Manual) PT INR D-Dimer ABG pH ABG pO2 ABG HCO3 ABG O2 Saturation ABG Base Excess ABG Hemoglobin Oxyhemoglobin Sodium Potassium Chloride Carbon Dioxide BUN Creatinine Glucose POC Glucose 122 H 149 H Lactic Acid Calcium Magnesium Iron TIBC Ferritin AST ALT Lactate Dehydrogenase Troponin T C-Reactive Protein Total Protein Albumin Prealbumin Cholesterol LDL Cholesterol Direct HDL Cholesterol Urine WBC (Auto) Vancomycin Trough Coronavirus (PCR) Crossmatch 07/07/19 07/07/19 07/07/19 04:35 05:27 05:34 WBC 23.1 H RBC 3.00 L Hgb 8.1 L Hct 24.2 L MCV 81 L MCH 27 L MCHC RDW 20.6 H Plt Count Lymph % (Auto) [place] % (Auto) Lymph # [place] # Baso # Seg Neutrophils % Seg Neuts % (Manual) 90.0 H Lymphocytes % (Manual) 2.0 L Monocytes % (Manual) Basophils % (Manual) Nucleated RBC % Seg Neutrophils # Seg Neutrophils # Man 20.8 H Lymphocytes # (Manual) 0.5 L Monocytes # (Manual) Eosinophils # (Manual) Basophils # (Manual) PT INR D-Dimer ABG pH ABG pO2 65.8 L ABG HCO3 ABG O2 Saturation 92.2 L ABG Base Excess ABG Hemoglobin 8.3 L Oxyhemoglobin 90.6 L Sodium Potassium Chloride Carbon Dioxide BUN Creatinine Glucose POC Glucose 132 H Lactic Acid Calcium Magnesium Iron TIBC Ferritin AST ALT Lactate Dehydrogenase Troponin T C-Reactive Protein Total Protein Albumin Prealbumin Cholesterol LDL Cholesterol Direct HDL Cholesterol Urine WBC (Auto) Vancomycin Trough Coronavirus (PCR) Crossmatch 07/07/19 07/07/19 07/07/19 05:34 11:50 15:58 WBC RBC Hgb 8.1 L Hct 24.2 L MCV MCH MCHC RDW Plt Count Lymph % (Auto) [place] % (Auto) Lymph # [place] # Baso # Seg Neutrophils % Seg Neuts % (Manual) Lymphocytes % (Manual) Monocytes % (Manual) Basophils % (Manual) Nucleated RBC % Seg Neutrophils # Seg Neutrophils # Man Lymphocytes # (Manual) Monocytes # (Manual) Eosinophils # (Manual) Basophils # (Manual) PT INR D-Dimer ABG pH ABG pO2 ABG HCO3 ABG O2 Saturation ABG Base Excess ABG Hemoglobin Oxyhemoglobin Sodium 135 L Potassium 3.3 L Chloride Carbon Dioxide 20 L BUN 27 H Creatinine 0.6 L Glucose 121 H POC Glucose 123 H Lactic Acid Calcium 8.0 L Magnesium Iron TIBC Ferritin AST ALT Lactate Dehydrogenase Troponin T C-Reactive Protein Total Protein Albumin Prealbumin Cholesterol LDL Cholesterol Direct HDL Cholesterol Urine WBC (Auto) Vancomycin Trough Coronavirus (PCR) Crossmatch 07/07/19 07/07/19 07/07/19 17:42 22:00 23:53 WBC RBC Hgb 8.0 L Hct 23.4 L MCV MCH MCHC RDW Plt Count Lymph % (Auto) [place] % (Auto) Lymph # [place] # Baso # Seg Neutrophils % Seg Neuts % (Manual) Lymphocytes % (Manual) Monocytes % (Manual) Basophils % (Manual) Nucleated RBC % Seg Neutrophils # Seg Neutrophils # Man Lymphocytes # (Manual) Monocytes # (Manual) Eosinophils # (Manual) Basophils # (Manual) PT INR D-Dimer ABG pH ABG pO2 ABG HCO3 ABG O2 Saturation ABG Base Excess ABG Hemoglobin Oxyhemoglobin Sodium Potassium Chloride Carbon Dioxide BUN Creatinine Glucose POC Glucose 107 H 117 H Lactic Acid Calcium Magnesium Iron TIBC Ferritin AST ALT Lactate Dehydrogenase Troponin T C-Reactive Protein Total Protein Albumin Prealbumin Cholesterol LDL Cholesterol Direct HDL Cholesterol Urine WBC (Auto) Vancomycin Trough Coronavirus (PCR) Crossmatch 07/08/19 07/08/19 07/08/19 00:45 00:45 00:45 WBC RBC Hgb Hct MCV MCH MCHC RDW Plt Count Lymph % (Auto) [place] % (Auto) Lymph # [place] # Baso # Seg Neutrophils % Seg Neuts % (Manual) Lymphocytes % (Manual) Monocytes % (Manual) Basophils % (Manual) Nucleated RBC % Seg Neutrophils # Seg Neutrophils # Man Lymphocytes # (Manual) Monocytes # (Manual) Eosinophils # (Manual) Basophils # (Manual) PT INR D-Dimer 1142.18 H ABG pH ABG pO2 ABG HCO3 ABG O2 Saturation ABG Base Excess ABG Hemoglobin Oxyhemoglobin Sodium Potassium Chloride Carbon Dioxide BUN Creatinine Glucose POC Glucose Lactic Acid Calcium Magnesium Iron TIBC Ferritin 839.0 H AST ALT Lactate Dehydrogenase 253 H Troponin T C-Reactive Protein 18.90 H Total Protein Albumin Prealbumin Cholesterol LDL Cholesterol Direct HDL Cholesterol Urine WBC (Auto) Vancomycin Trough Coronavirus (PCR) Crossmatch 07/08/19 07/08/19 07/08/19 04:30 05:11 12:02 WBC RBC Hgb Hct MCV MCH MCHC RDW Plt Count Lymph % (Auto) [place] % (Auto) Lymph # [place] # Baso # Seg Neutrophils % Seg Neuts % (Manual) Lymphocytes % (Manual) Monocytes % (Manual) Basophils % (Manual) Nucleated RBC % Seg Neutrophils # Seg Neutrophils # Man Lymphocytes # (Manual) Monocytes # (Manual) Eosinophils # (Manual) Basophils # (Manual) PT INR D-Dimer ABG pH ABG pO2 66.0 L ABG HCO3 ABG O2 Saturation 92.3 L ABG Base Excess ABG Hemoglobin 7.7 L Oxyhemoglobin 90.7 L Sodium Potassium Chloride Carbon Dioxide BUN Creatinine Glucose POC Glucose 108 H 153 H Lactic Acid Calcium Magnesium Iron TIBC Ferritin AST ALT Lactate Dehydrogenase Troponin T C-Reactive Protein Total Protein Albumin Prealbumin Cholesterol LDL Cholesterol Direct HDL Cholesterol Urine WBC (Auto) Vancomycin Trough Coronavirus (PCR) Crossmatch 07/08/19 07/08/19 07/08/19 16:15 18:22 23:35 WBC RBC Hgb Hct MCV MCH MCHC RDW Plt Count Lymph % (Auto) [place] % (Auto) Lymph # [place] # Baso # Seg Neutrophils % Seg Neuts % (Manual) Lymphocytes % (Manual) Monocytes % (Manual) Basophils % (Manual) Nucleated RBC % Seg Neutrophils # Seg Neutrophils # Man Lymphocytes # (Manual) Monocytes # (Manual) Eosinophils # (Manual) Basophils # (Manual) PT INR D-Dimer ABG pH ABG pO2 ABG HCO3 ABG O2 Saturation ABG Base Excess ABG Hemoglobin Oxyhemoglobin Sodium 134 L Potassium 3.3 L Chloride Carbon Dioxide 21 L BUN 27 H Creatinine 0.6 L Glucose 146 H POC Glucose 134 H 133 H Lactic Acid Calcium Magnesium Iron TIBC Ferritin AST ALT Lactate Dehydrogenase Troponin T C-Reactive Protein Total Protein Albumin Prealbumin Cholesterol LDL Cholesterol Direct HDL Cholesterol Urine WBC (Auto) Vancomycin Trough Coronavirus (PCR) Crossmatch 07/09/19 07/09/19 07/09/19 04:30 04:30 05:00 WBC 18.9 H RBC 2.77 L Hgb 7.4 L Hct 22.8 L MCV 82 L MCH 27 L MCHC RDW 20.9 H Plt Count 130 L Lymph % (Auto) [place] % (Auto) Lymph # [place] # Baso # Seg Neutrophils % Seg Neuts % (Manual) 84.0 H Lymphocytes % (Manual) 0 L Monocytes % (Manual) Basophils % (Manual) Nucleated RBC % Seg Neutrophils # Seg Neutrophils # Man 15.9 H Lymphocytes # (Manual) 0.0 L Monocytes # (Manual) Eosinophils # (Manual) Basophils # (Manual) PT INR D-Dimer ABG pH ABG pO2 ABG HCO3 ABG O2 Saturation ABG Base Excess ABG Hemoglobin Oxyhemoglobin Sodium Potassium 3.1 L Chloride Carbon Dioxide BUN 26 H Creatinine 0.5 L Glucose 125 H POC Glucose 155 H Lactic Acid Calcium Magnesium Iron TIBC Ferritin AST ALT Lactate Dehydrogenase Troponin T C-Reactive Protein Total Protein Albumin Prealbumin Cholesterol LDL Cholesterol Direct HDL Cholesterol Urine WBC (Auto) Vancomycin Trough Coronavirus (PCR) Crossmatch 07/09/19 07/09/19 07/09/19 05:55 12:22 17:50 WBC RBC Hgb Hct MCV MCH MCHC RDW Plt Count Lymph % (Auto) [place] % (Auto) Lymph # [place] # Baso # Seg Neutrophils % Seg Neuts % (Manual) Lymphocytes % (Manual) Monocytes % (Manual) Basophils % (Manual) Nucleated RBC % Seg Neutrophils # Seg Neutrophils # Man Lymphocytes # (Manual) Monocytes # (Manual) Eosinophils # (Manual) Basophils # (Manual) PT INR D-Dimer ABG pH ABG pO2 62.8 L ABG HCO3 ABG O2 Saturation ABG Base Excess ABG Hemoglobin 6.1 L Oxyhemoglobin 93.9 L Sodium Potassium Chloride Carbon Dioxide BUN Creatinine Glucose POC Glucose 115 H 133 H Lactic Acid Calcium Magnesium Iron TIBC Ferritin AST ALT Lactate Dehydrogenase Troponin T C-Reactive Protein Total Protein Albumin Prealbumin Cholesterol LDL Cholesterol Direct HDL Cholesterol Urine WBC (Auto) Vancomycin Trough Coronavirus (PCR) Crossmatch 07/10/19 07/10/19 07/10/19 00:38 04:00 04:00 WBC RBC Hgb Hct MCV MCH MCHC RDW Plt Count Lymph % (Auto) [place] % (Auto) Lymph # [place] # Baso # Seg Neutrophils % Seg Neuts % (Manual) Lymphocytes % (Manual) Monocytes % (Manual) Basophils % (Manual) Nucleated RBC % Seg Neutrophils # Seg Neutrophils # Man Lymphocytes # (Manual) Monocytes # (Manual) Eosinophils # (Manual) Basophils # (Manual) PT INR D-Dimer ABG pH ABG pO2 ABG HCO3 ABG O2 Saturation ABG Base Excess ABG Hemoglobin Oxyhemoglobin Sodium Potassium Chloride 107.9 H Carbon Dioxide BUN 26 H Creatinine 0.4 L Glucose 137 H POC Glucose 122 H Lactic Acid Calcium Magnesium 1.50 L Iron TIBC Ferritin AST ALT Lactate Dehydrogenase 277 H Troponin T C-Reactive Protein 15.10 H Total Protein Albumin Prealbumin Cholesterol LDL Cholesterol Direct HDL Cholesterol Urine WBC (Auto) Vancomycin Trough Coronavirus (PCR) Crossmatch 07/10/19 07/10/19 07/10/19 04:07 05:21 17:25 WBC RBC Hgb Hct MCV MCH MCHC RDW Plt Count Lymph % (Auto) [place] % (Auto) Lymph # [place] # Baso # Seg Neutrophils % Seg Neuts % (Manual) Lymphocytes % (Manual) Monocytes % (Manual) Basophils % (Manual) Nucleated RBC % Seg Neutrophils # Seg Neutrophils # Man Lymphocytes # (Manual) Monocytes # (Manual) Eosinophils # (Manual) Basophils # (Manual) PT INR D-Dimer ABG pH ABG pO2 65.6 L ABG HCO3 26.3 H ABG O2 Saturation ABG Base Excess ABG Hemoglobin 6.7 L Oxyhemoglobin Sodium Potassium Chloride Carbon Dioxide BUN Creatinine Glucose POC Glucose 144 H 113 H Lactic Acid Calcium Magnesium Iron TIBC Ferritin AST ALT Lactate Dehydrogenase Troponin T C-Reactive Protein Total Protein Albumin Prealbumin Cholesterol LDL Cholesterol Direct HDL Cholesterol Urine WBC (Auto) Vancomycin Trough Coronavirus (PCR) Crossmatch 07/11/19 07/11/19 07/11/19 00:07 05:14 05:25 WBC RBC Hgb Hct MCV MCH MCHC RDW Plt Count Lymph % (Auto) [place] % (Auto) Lymph # [place] # Baso # Seg Neutrophils % Seg Neuts % (Manual) Lymphocytes % (Manual) Monocytes % (Manual) Basophils % (Manual) Nucleated RBC % Seg Neutrophils # Seg Neutrophils # Man Lymphocytes # (Manual) Monocytes # (Manual) Eosinophils # (Manual) Basophils # (Manual) PT INR D-Dimer ABG pH ABG pO2 ABG HCO3 ABG O2 Saturation ABG Base Excess ABG Hemoglobin 5.8 L Oxyhemoglobin Sodium Potassium Chloride 108.0 H Carbon Dioxide BUN 26 H Creatinine 0.4 L Glucose 110 H POC Glucose 121 H Lactic Acid Calcium Magnesium Iron TIBC Ferritin AST ALT Lactate Dehydrogenase Troponin T C-Reactive Protein Total Protein Albumin Prealbumin Cholesterol LDL Cholesterol Direct HDL Cholesterol Urine WBC (Auto) Vancomycin Trough Coronavirus (PCR) Crossmatch 07/11/19 07/11/19 07/11/19 12:27 18:00 23:42 WBC RBC Hgb Hct MCV MCH MCHC RDW Plt Count Lymph % (Auto) [place] % (Auto) Lymph # [place] # Baso # Seg Neutrophils % Seg Neuts % (Manual) Lymphocytes % (Manual) Monocytes % (Manual) Basophils % (Manual) Nucleated RBC % Seg Neutrophils # Seg Neutrophils # Man Lymphocytes # (Manual) Monocytes # (Manual) Eosinophils # (Manual) Basophils # (Manual) PT INR D-Dimer ABG pH ABG pO2 ABG HCO3 ABG O2 Saturation ABG Base Excess ABG Hemoglobin Oxyhemoglobin Sodium Potassium Chloride Carbon Dioxide BUN Creatinine Glucose POC Glucose 158 H 141 H 142 H Lactic Acid Calcium Magnesium Iron TIBC Ferritin AST ALT Lactate Dehydrogenase Troponin T C-Reactive Protein Total Protein Albumin Prealbumin Cholesterol LDL Cholesterol Direct HDL Cholesterol Urine WBC (Auto) Vancomycin Trough Coronavirus (PCR) Crossmatch 07/12/19 07/12/19 07/12/19 04:46 04:46 05:23 WBC 23.6 H RBC 2.51 L Hgb 6.7 L Hct 20.8 L MCV 83 L MCH 27 L MCHC RDW 20.3 H Plt Count Lymph % (Auto) [place] % (Auto) Lymph # [place] # Baso # Seg Neutrophils % Seg Neuts % (Manual) 94.0 H Lymphocytes % (Manual) 4.0 L Monocytes % (Manual) Basophils % (Manual) Nucleated RBC % Seg Neutrophils # Seg Neutrophils # Man 22.2 H Lymphocytes # (Manual) 0.9 L Monocytes # (Manual) Eosinophils # (Manual) Basophils # (Manual) PT INR D-Dimer ABG pH ABG pO2 ABG HCO3 ABG O2 Saturation ABG Base Excess ABG Hemoglobin Oxyhemoglobin Sodium Potassium Chloride 107.1 H Carbon Dioxide BUN 25 H Creatinine 0.4 L Glucose 122 H POC Glucose 118 H Lactic Acid Calcium Magnesium Iron TIBC Ferritin AST ALT Lactate Dehydrogenase Troponin T C-Reactive Protein Total Protein Albumin Prealbumin Cholesterol LDL Cholesterol Direct HDL Cholesterol Urine WBC (Auto) Vancomycin Trough Coronavirus (PCR) Crossmatch 07/12/19 07/12/19 07/12/19 08:49 11:36 18:15 WBC RBC Hgb Hct MCV MCH MCHC RDW Plt Count Lymph % (Auto) [place] % (Auto) Lymph # [place] # Baso # Seg Neutrophils % Seg Neuts % (Manual) Lymphocytes % (Manual) Monocytes % (Manual) Basophils % (Manual) Nucleated RBC % Seg Neutrophils # Seg Neutrophils # Man Lymphocytes # (Manual) Monocytes # (Manual) Eosinophils # (Manual) Basophils # (Manual) PT INR D-Dimer ABG pH ABG pO2 ABG HCO3 ABG O2 Saturation ABG Base Excess ABG Hemoglobin Oxyhemoglobin Sodium Potassium Chloride Carbon Dioxide BUN Creatinine Glucose POC Glucose 124 H 110 H Lactic Acid Calcium Magnesium Iron TIBC Ferritin AST ALT Lactate Dehydrogenase Troponin T C-Reactive Protein Total Protein Albumin Prealbumin Cholesterol LDL Cholesterol Direct HDL Cholesterol Urine WBC (Auto) Vancomycin Trough Coronavirus (PCR) Crossmatch See Detail 07/12/19 07/13/19 07/13/19 23:16 05:26 06:50 WBC 23.9 H RBC 2.58 L Hgb 6.9 L Hct 21.5 L MCV 83 L MCH 27 L MCHC RDW 19.0 H Plt Count Lymph % (Auto) [place] % (Auto) Lymph # [place] # Baso # Seg Neutrophils % Seg Neuts % (Manual) 96.0 H Lymphocytes % (Manual) 3.0 L Monocytes % (Manual) Basophils % (Manual) Nucleated RBC % Seg Neutrophils # Seg Neutrophils # Man 22.9 H Lymphocytes # (Manual) 0.7 L Monocytes # (Manual) Eosinophils # (Manual) Basophils # (Manual) PT INR D-Dimer ABG pH ABG pO2 ABG HCO3 ABG O2 Saturation ABG Base Excess ABG Hemoglobin Oxyhemoglobin Sodium Potassium Chloride Carbon Dioxide BUN Creatinine Glucose POC Glucose 108 H 126 H Lactic Acid Calcium Magnesium Iron TIBC Ferritin AST ALT Lactate Dehydrogenase Troponin T C-Reactive Protein Total Protein Albumin Prealbumin Cholesterol LDL Cholesterol Direct HDL Cholesterol Urine WBC (Auto) Vancomycin Trough Coronavirus (PCR) Crossmatch 07/13/19 07/13/19 07/13/19 06:50 12:38 18:05 WBC RBC Hgb Hct MCV MCH MCHC RDW Plt Count Lymph % (Auto) [place] % (Auto) Lymph # [place] # Baso # Seg Neutrophils % Seg Neuts % (Manual) Lymphocytes % (Manual) Monocytes % (Manual) Basophils % (Manual) Nucleated RBC % Seg Neutrophils # Seg Neutrophils # Man Lymphocytes # (Manual) Monocytes # (Manual) Eosinophils # (Manual) Basophils # (Manual) PT INR D-Dimer ABG pH ABG pO2 ABG HCO3 ABG O2 Saturation ABG Base Excess ABG Hemoglobin Oxyhemoglobin Sodium Potassium Chloride Carbon Dioxide BUN 33 H Creatinine 0.5 L Glucose 136 H POC Glucose 164 H 145 H Lactic Acid Calcium Magnesium Iron TIBC Ferritin AST ALT Lactate Dehydrogenase Troponin T C-Reactive Protein Total Protein Albumin Prealbumin Cholesterol LDL Cholesterol Direct HDL Cholesterol Urine WBC (Auto) Vancomycin Trough Coronavirus (PCR) Crossmatch 07/13/19 07/14/19 07/14/19 18:30 00:21 04:40 WBC 22.9 H RBC 2.45 L Hgb 6.6 L Hct 21.1 L MCV MCH 27 L MCHC 31 L RDW 19.2 H Plt Count Lymph % (Auto) [place] % (Auto) Lymph # [place] # Baso # Seg Neutrophils % Seg Neuts % (Manual) 91.0 H Lymphocytes % (Manual) 7.0 L Monocytes % (Manual) Basophils % (Manual) Nucleated RBC % Seg Neutrophils # Seg Neutrophils # Man 20.8 H Lymphocytes # (Manual) Monocytes # (Manual) Eosinophils # (Manual) Basophils # (Manual) PT INR D-Dimer ABG pH ABG pO2 58.1 L ABG HCO3 ABG O2 Saturation 88.7 L ABG Base Excess ABG Hemoglobin 7.8 L Oxyhemoglobin 86.8 L Sodium Potassium Chloride Carbon Dioxide BUN Creatinine Glucose POC Glucose 118 H Lactic Acid Calcium Magnesium Iron TIBC Ferritin AST ALT Lactate Dehydrogenase Troponin T C-Reactive Protein Total Protein Albumin Prealbumin Cholesterol LDL Cholesterol Direct HDL Cholesterol Urine WBC (Auto) Vancomycin Trough Coronavirus (PCR) Crossmatch 07/14/19 07/14/19 07/14/19 04:40 05:38 05:45 WBC RBC Hgb Hct MCV MCH MCHC RDW Plt Count Lymph % (Auto) [place] % (Auto) Lymph # [place] # Baso # Seg Neutrophils % Seg Neuts % (Manual) Lymphocytes % (Manual) Monocytes % (Manual) Basophils % (Manual) Nucleated RBC % Seg Neutrophils # Seg Neutrophils # Man Lymphocytes # (Manual) Monocytes # (Manual) Eosinophils # (Manual) Basophils # (Manual) PT INR D-Dimer ABG pH 7.230 L ABG pO2 72.1 L ABG HCO3 ABG O2 Saturation 89.3 L ABG Base Excess -2.7 L ABG Hemoglobin 6.7 L Oxyhemoglobin 87.7 L Sodium Potassium Chloride 107.4 H Carbon Dioxide BUN 45 H Creatinine Glucose 101 H POC Glucose 154 H Lactic Acid Calcium Magnesium Iron TIBC Ferritin AST ALT Lactate Dehydrogenase Troponin T C-Reactive Protein Total Protein Albumin Prealbumin Cholesterol LDL Cholesterol Direct HDL Cholesterol Urine WBC (Auto) Vancomycin Trough Coronavirus (PCR) Crossmatch 07/14/19 07/14/19 07/14/19 12:25 18:20 19:01 WBC 22.4 H RBC 2.70 L Hgb 7.5 L Hct 23.3 L MCV MCH MCHC RDW 19.5 H Plt Count Lymph % (Auto) [place] % (Auto) Lymph # [place] # Baso # Seg Neutrophils % Seg Neuts % (Manual) Lymphocytes % (Manual) Monocytes % (Manual) Basophils % (Manual) Nucleated RBC % Seg Neutrophils # Seg Neutrophils # Man Lymphocytes # (Manual) Monocytes # (Manual) Eosinophils # (Manual) Basophils # (Manual) PT INR D-Dimer ABG pH ABG pO2 ABG HCO3 ABG O2 Saturation ABG Base Excess ABG Hemoglobin Oxyhemoglobin Sodium Potassium Chloride Carbon Dioxide BUN Creatinine Glucose POC Glucose 136 H 131 H Lactic Acid Calcium Magnesium Iron TIBC Ferritin AST ALT Lactate Dehydrogenase Troponin T C-Reactive Protein Total Protein Albumin Prealbumin Cholesterol LDL Cholesterol Direct HDL Cholesterol Urine WBC (Auto) Vancomycin Trough Coronavirus (PCR) Crossmatch 07/15/19 07/15/19 07/15/19 00:17 04:35 05:18 WBC 20.6 H RBC 2.41 L Hgb 6.8 L Hct 20.7 L MCV MCH MCHC RDW 20.2 H Plt Count Lymph % (Auto) [place] % (Auto) Lymph # [place] # Baso # Seg Neutrophils % Seg Neuts % (Manual) 92.0 H Lymphocytes % (Manual) 5.0 L Monocytes % (Manual) Basophils % (Manual) Nucleated RBC % Seg Neutrophils # Seg Neutrophils # Man 19.0 H Lymphocytes # (Manual) 1.0 L Monocytes # (Manual) Eosinophils # (Manual) Basophils # (Manual) PT INR D-Dimer ABG pH 7.342 L ABG pO2 ABG HCO3 ABG O2 Saturation ABG Base Excess -3.1 L ABG Hemoglobin 7.2 L Oxyhemoglobin 94.9 L Sodium Potassium Chloride Carbon Dioxide BUN Creatinine Glucose POC Glucose 116 H Lactic Acid Calcium Magnesium Iron TIBC Ferritin AST ALT Lactate Dehydrogenase Troponin T C-Reactive Protein Total Protein Albumin Prealbumin Cholesterol LDL Cholesterol Direct HDL Cholesterol Urine WBC (Auto) Vancomycin Trough Coronavirus (PCR) Crossmatch 07/15/19 07/15/19 07/15/19 05:18 05:57 11:28 WBC RBC Hgb Hct MCV MCH MCHC RDW Plt Count Lymph % (Auto) [place] % (Auto) Lymph # [place] # Baso # Seg Neutrophils % Seg Neuts % (Manual) Lymphocytes % (Manual) Monocytes % (Manual) Basophils % (Manual) Nucleated RBC % Seg Neutrophils # Seg Neutrophils # Man Lymphocytes # (Manual) Monocytes # (Manual) Eosinophils # (Manual) Basophils # (Manual) PT INR D-Dimer ABG pH ABG pO2 ABG HCO3 ABG O2 Saturation ABG Base Excess ABG Hemoglobin Oxyhemoglobin Sodium Potassium Chloride Carbon Dioxide 20 L BUN 59 H Creatinine Glucose 140 H POC Glucose 139 H 117 H Lactic Acid Calcium Magnesium Iron TIBC Ferritin AST ALT Lactate Dehydrogenase Troponin T C-Reactive Protein Total Protein Albumin Prealbumin Cholesterol LDL Cholesterol Direct HDL Cholesterol Urine WBC (Auto) Vancomycin Trough Coronavirus (PCR) Crossmatch 07/15/19 07/16/19 07/16/19 18:13 00:06 03:43 WBC RBC Hgb Hct MCV MCH MCHC RDW Plt Count Lymph % (Auto) [place] % (Auto) Lymph # [place] # Baso # Seg Neutrophils % Seg Neuts % (Manual) Lymphocytes % (Manual) Monocytes % (Manual) Basophils % (Manual) Nucleated RBC % Seg Neutrophils # Seg Neutrophils # Man Lymphocytes # (Manual) Monocytes # (Manual) Eosinophils # (Manual) Basophils # (Manual) PT INR D-Dimer ABG pH 7.344 L ABG pO2 68.6 L ABG HCO3 ABG O2 Saturation ABG Base Excess -3.5 L ABG Hemoglobin 6.1 L Oxyhemoglobin 93.3 L Sodium Potassium Chloride Carbon Dioxide BUN Creatinine Glucose POC Glucose 114 H 119 H Lactic Acid Calcium Magnesium Iron TIBC Ferritin AST ALT Lactate Dehydrogenase Troponin T C-Reactive Protein Total Protein Albumin Prealbumin Cholesterol LDL Cholesterol Direct HDL Cholesterol Urine WBC (Auto) Vancomycin Trough Coronavirus (PCR) Crossmatch 07/16/19 07/16/19 07/16/19 04:41 04:41 12:09 WBC 19.6 H RBC 2.81 L Hgb 7.7 L Hct 24.0 L MCV MCH 27 L MCHC RDW 19.4 H Plt Count 514 H Lymph % (Auto) 6.7 L [place] % (Auto) Lymph # [place] # 1.0 H Baso # Seg Neutrophils % 87.0 H Seg Neuts % (Manual) Lymphocytes % (Manual) Monocytes % (Manual) Basophils % (Manual) Nucleated RBC % Seg Neutrophils # 17.0 H Seg Neutrophils # Man Lymphocytes # (Manual) Monocytes # (Manual) Eosinophils # (Manual) Basophils # (Manual) PT INR D-Dimer ABG pH ABG pO2 ABG HCO3 ABG O2 Saturation ABG Base Excess ABG Hemoglobin Oxyhemoglobin Sodium Potassium 5.9 H Chloride Carbon Dioxide 21 L BUN 73 H Creatinine 2.0 H Glucose POC Glucose 141 H Lactic Acid Calcium Magnesium Iron TIBC Ferritin AST ALT Lactate Dehydrogenase Troponin T C-Reactive Protein Total Protein Albumin Prealbumin Cholesterol LDL Cholesterol Direct HDL Cholesterol Urine WBC (Auto) Vancomycin Trough Coronavirus (PCR) Crossmatch 07/16/19 07/16/19 07/17/19 16:19 17:45 00:16 WBC RBC Hgb Hct MCV MCH MCHC RDW Plt Count Lymph % (Auto) [place] % (Auto) Lymph # [place] # Baso # Seg Neutrophils % Seg Neuts % (Manual) Lymphocytes % (Manual) Monocytes % (Manual) Basophils % (Manual) Nucleated RBC % Seg Neutrophils # Seg Neutrophils # Man Lymphocytes # (Manual) Monocytes # (Manual) Eosinophils # (Manual) Basophils # (Manual) PT INR D-Dimer ABG pH ABG pO2 ABG HCO3 ABG O2 Saturation ABG Base Excess ABG Hemoglobin Oxyhemoglobin Sodium Potassium 5.1 H Chloride Carbon Dioxide 20 L BUN 72 H Creatinine 1.7 H Glucose 128 H POC Glucose 181 H 164 H Lactic Acid Calcium Magnesium Iron TIBC Ferritin AST ALT Lactate Dehydrogenase Troponin T C-Reactive Protein Total Protein Albumin Prealbumin Cholesterol LDL Cholesterol Direct HDL Cholesterol Urine WBC (Auto) Vancomycin Trough Coronavirus (PCR) Crossmatch 07/17/19 07/17/19 07/17/19 04:20 04:39 04:39 WBC 16.1 H RBC 2.92 L Hgb 8.0 L Hct 25.5 L MCV MCH MCHC 31 L RDW 19.7 H Plt Count 564 H Lymph % (Auto) 3.6 L [place] % (Auto) 7.4 H Lymph # 0.6 L [place] # 1.2 H Baso # Seg Neutrophils % 87.5 H Seg Neuts % (Manual) Lymphocytes % (Manual) Monocytes % (Manual) Basophils % (Manual) Nucleated RBC % Seg Neutrophils # 14.1 H Seg Neutrophils # Man Lymphocytes # (Manual) Monocytes # (Manual) Eosinophils # (Manual) Basophils # (Manual) PT INR D-Dimer ABG pH 7.231 L ABG pO2 95.3 H ABG HCO3 ABG O2 Saturation ABG Base Excess -5.0 L ABG Hemoglobin 7.9 L Oxyhemoglobin 94.8 L Sodium Potassium Chloride 107.8 H Carbon Dioxide 21 L BUN 68 H Creatinine Glucose POC Glucose Lactic Acid Calcium Magnesium Iron TIBC Ferritin AST ALT Lactate Dehydrogenase Troponin T C-Reactive Protein Total Protein Albumin Prealbumin Cholesterol LDL Cholesterol Direct HDL Cholesterol Urine WBC (Auto) Vancomycin Trough Coronavirus (PCR) Crossmatch 07/17/19 07/17/19 07/17/19 05:28 12:11 18:48 WBC RBC Hgb Hct MCV MCH MCHC RDW Plt Count Lymph % (Auto) [place] % (Auto) Lymph # [place] # Baso # Seg Neutrophils % Seg Neuts % (Manual) Lymphocytes % (Manual) Monocytes % (Manual) Basophils % (Manual) Nucleated RBC % Seg Neutrophils # Seg Neutrophils # Man Lymphocytes # (Manual) Monocytes # (Manual) Eosinophils # (Manual) Basophils # (Manual) PT INR D-Dimer ABG pH ABG pO2 ABG HCO3 ABG O2 Saturation ABG Base Excess ABG Hemoglobin Oxyhemoglobin Sodium Potassium Chloride Carbon Dioxide BUN Creatinine Glucose POC Glucose 121 H 125 H 174 H Lactic Acid Calcium Magnesium Iron TIBC Ferritin AST ALT Lactate Dehydrogenase Troponin T C-Reactive Protein Total Protein Albumin Prealbumin Cholesterol LDL Cholesterol Direct HDL Cholesterol Urine WBC (Auto) Vancomycin Trough Coronavirus (PCR) Crossmatch 07/17/19 07/17/19 07/18/19 19:55 23:57 02:30 WBC RBC Hgb Hct MCV MCH MCHC RDW Plt Count Lymph % (Auto) [place] % (Auto) Lymph # [place] # Baso # Seg Neutrophils % Seg Neuts % (Manual) Lymphocytes % (Manual) Monocytes % (Manual) Basophils % (Manual) Nucleated RBC % Seg Neutrophils # Seg Neutrophils # Man Lymphocytes # (Manual) Monocytes # (Manual) Eosinophils # (Manual) Basophils # (Manual) PT INR D-Dimer ABG pH 7.344 L 7.294 L ABG pO2 78.5 L 119.2 H ABG HCO3 ABG O2 Saturation ABG Base Excess -3.3 L -2.6 L ABG Hemoglobin 8.6 L 8.1 L Oxyhemoglobin 94.8 L Sodium Potassium Chloride Carbon Dioxide BUN Creatinine Glucose POC Glucose 148 H Lactic Acid Calcium Magnesium Iron TIBC Ferritin AST ALT Lactate Dehydrogenase Troponin T C-Reactive Protein Total Protein Albumin Prealbumin Cholesterol LDL Cholesterol Direct HDL Cholesterol Urine WBC (Auto) Vancomycin Trough Coronavirus (PCR) Crossmatch 07/18/19 07/18/19 07/18/19 04:49 05:22 05:22 WBC 15.9 H RBC 3.00 L Hgb 8.1 L Hct 26.0 L MCV MCH 27 L MCHC 31 L RDW 19.4 H Plt Count 733 H Lymph % (Auto) 6.3 L [place] % (Auto) 7.4 H Lymph # 1.0 L [place] # 1.2 H Baso # 0.2 H Seg Neutrophils % 83.8 H Seg Neuts % (Manual) Lymphocytes % (Manual) Monocytes % (Manual) Basophils % (Manual) Nucleated RBC % Seg Neutrophils # 13.3 H Seg Neutrophils # Man Lymphocytes # (Manual) Monocytes # (Manual) Eosinophils # (Manual) Basophils # (Manual) PT INR D-Dimer ABG pH ABG pO2 ABG HCO3 ABG O2 Saturation ABG Base Excess ABG Hemoglobin Oxyhemoglobin Sodium Potassium Chloride 110.6 H Carbon Dioxide BUN 61 H Creatinine Glucose 109 H POC Glucose 116 H Lactic Acid Calcium Magnesium Iron TIBC Ferritin AST ALT Lactate Dehydrogenase Troponin T C-Reactive Protein Total Protein Albumin Prealbumin Cholesterol LDL Cholesterol Direct HDL Cholesterol Urine WBC (Auto) Vancomycin Trough Coronavirus (PCR) Crossmatch 07/18/19 07/18/19 07/18/19 12:23 18:06 22:20 WBC RBC Hgb Hct MCV MCH MCHC RDW Plt Count Lymph % (Auto) [place] % (Auto) Lymph # [place] # Baso # Seg Neutrophils % Seg Neuts % (Manual) Lymphocytes % (Manual) Monocytes % (Manual) Basophils % (Manual) Nucleated RBC % Seg Neutrophils # Seg Neutrophils # Man Lymphocytes # (Manual) Monocytes # (Manual) Eosinophils # (Manual) Basophils # (Manual) PT INR D-Dimer ABG pH 7.338 L ABG pO2 135.1 H ABG HCO3 ABG O2 Saturation ABG Base Excess ABG Hemoglobin 9.2 L Oxyhemoglobin Sodium Potassium Chloride Carbon Dioxide BUN Creatinine Glucose POC Glucose 114 H 113 H Lactic Acid Calcium Magnesium Iron TIBC Ferritin AST ALT Lactate Dehydrogenase Troponin T C-Reactive Protein Total Protein Albumin Prealbumin Cholesterol LDL Cholesterol Direct HDL Cholesterol Urine WBC (Auto) Vancomycin Trough Coronavirus (PCR) Crossmatch 07/18/19 07/19/19 07/19/19 23:33 03:45 05:18 WBC RBC Hgb Hct MCV MCH MCHC RDW Plt Count Lymph % (Auto) [place] % (Auto) Lymph # [place] # Baso # Seg Neutrophils % Seg Neuts % (Manual) Lymphocytes % (Manual) Monocytes % (Manual) Basophils % (Manual) Nucleated RBC % Seg Neutrophils # Seg Neutrophils # Man Lymphocytes # (Manual) Monocytes # (Manual) Eosinophils # (Manual) Basophils # (Manual) PT INR D-Dimer ABG pH 7.342 L ABG pO2 95.0 H ABG HCO3 ABG O2 Saturation ABG Base Excess ABG Hemoglobin 8.5 L Oxyhemoglobin Sodium Potassium Chloride Carbon Dioxide BUN Creatinine Glucose POC Glucose 125 H 111 H Lactic Acid Calcium Magnesium Iron TIBC Ferritin AST ALT Lactate Dehydrogenase Troponin T C-Reactive Protein Total Protein Albumin Prealbumin Cholesterol LDL Cholesterol Direct HDL Cholesterol Urine WBC (Auto) Vancomycin Trough Coronavirus (PCR) Crossmatch 07/19/19 07/19/19 07/19/19 08:45 08:45 11:47 WBC 15.9 H RBC 3.31 L Hgb 9.1 L Hct 28.4 L MCV MCH 27 L MCHC RDW 19.1 H Plt Count 858 H Lymph % (Auto) 4.9 L [place] % (Auto) 8.1 H Lymph # 0.8 L [place] # 1.3 H Baso # Seg Neutrophils % 85.5 H Seg Neuts % (Manual) Lymphocytes % (Manual) Monocytes % (Manual) Basophils % (Manual) Nucleated RBC % Seg Neutrophils # 13.6 H Seg Neutrophils # Man Lymphocytes # (Manual) Monocytes # (Manual) Eosinophils # (Manual) Basophils # (Manual) PT INR D-Dimer ABG pH ABG pO2 ABG HCO3 ABG O2 Saturation ABG Base Excess ABG Hemoglobin Oxyhemoglobin Sodium Potassium Chloride 111.6 H Carbon Dioxide BUN 50 H Creatinine 0.7 L Glucose 118 H POC Glucose 114 H Lactic Acid Calcium Magnesium Iron TIBC Ferritin AST ALT Lactate Dehydrogenase Troponin T C-Reactive Protein Total Protein Albumin Prealbumin Cholesterol LDL Cholesterol Direct HDL Cholesterol Urine WBC (Auto) Vancomycin Trough Coronavirus (PCR) Crossmatch 07/19/19 07/19/19 07/20/19 18:25 23:44 04:39 WBC RBC Hgb Hct MCV MCH MCHC RDW Plt Count Lymph % (Auto) [place] % (Auto) Lymph # [place] # Baso # Seg Neutrophils % Seg Neuts % (Manual) Lymphocytes % (Manual) Monocytes % (Manual) Basophils % (Manual) Nucleated RBC % Seg Neutrophils # Seg Neutrophils # Man Lymphocytes # (Manual) Monocytes # (Manual) Eosinophils # (Manual) Basophils # (Manual) PT INR D-Dimer ABG pH ABG pO2 ABG HCO3 ABG O2 Saturation ABG Base Excess ABG Hemoglobin Oxyhemoglobin Sodium Potassium Chloride 110.3 H Carbon Dioxide BUN 44 H Creatinine 0.6 L Glucose 120 H POC Glucose 115 H 117 H Lactic Acid Calcium Magnesium Iron TIBC Ferritin AST ALT Lactate Dehydrogenase Troponin T C-Reactive Protein Total Protein Albumin Prealbumin Cholesterol LDL Cholesterol Direct HDL Cholesterol Urine WBC (Auto) Vancomycin Trough Coronavirus (PCR) Crossmatch 07/20/19 07/21/19 07/21/19 05:30 11:59 17:40 WBC RBC Hgb Hct MCV MCH MCHC RDW Plt Count Lymph % (Auto) [place] % (Auto) Lymph # [place] # Baso # Seg Neutrophils % Seg Neuts % (Manual) Lymphocytes % (Manual) Monocytes % (Manual) Basophils % (Manual) Nucleated RBC % Seg Neutrophils # Seg Neutrophils # Man Lymphocytes # (Manual) Monocytes # (Manual) Eosinophils # (Manual) Basophils # (Manual) PT INR D-Dimer ABG pH ABG pO2 ABG HCO3 ABG O2 Saturation ABG Base Excess ABG Hemoglobin Oxyhemoglobin Sodium Potassium Chloride Carbon Dioxide BUN Creatinine Glucose POC Glucose 131 H 122 H 125 H Lactic Acid Calcium Magnesium Iron TIBC Ferritin AST ALT Lactate Dehydrogenase Troponin T C-Reactive Protein Total Protein Albumin Prealbumin Cholesterol LDL Cholesterol Direct HDL Cholesterol Urine WBC (Auto) Vancomycin Trough Coronavirus (PCR) Crossmatch 07/22/19 07/22/19 07/22/19 05:38 05:38 12:29 WBC 12.6 H RBC 3.19 L Hgb 8.9 L Hct 27.5 L MCV MCH MCHC RDW 18.9 H Plt Count 1101 H* Lymph % (Auto) [place] % (Auto) 12.2 H Lymph # [place] # 1.5 H Baso # Seg Neutrophils % 72.8 H Seg Neuts % (Manual) 76.0 H Lymphocytes % (Manual) 7.0 L Monocytes % (Manual) 14.0 H Basophils % (Manual) Nucleated RBC % 1.0 H Seg Neutrophils # 9.2 H Seg Neutrophils # Man 9.6 H Lymphocytes # (Manual) 0.9 L Monocytes # (Manual) 1.8 H Eosinophils # (Manual) Basophils # (Manual) PT INR D-Dimer ABG pH ABG pO2 ABG HCO3 ABG O2 Saturation ABG Base Excess ABG Hemoglobin Oxyhemoglobin Sodium Potassium 3.4 L Chloride Carbon Dioxide BUN 29 H Creatinine 0.5 L Glucose POC Glucose 116 H Lactic Acid Calcium Magnesium Iron TIBC Ferritin AST ALT Lactate Dehydrogenase Troponin T C-Reactive Protein Total Protein Albumin Prealbumin Cholesterol LDL Cholesterol Direct HDL Cholesterol Urine WBC (Auto) Vancomycin Trough Coronavirus (PCR) Crossmatch 07/22/19 07/22/19 07/23/19 18:20 23:51 04:52 WBC RBC Hgb Hct MCV MCH MCHC RDW Plt Count Lymph % (Auto) [place] % (Auto) Lymph # [place] # Baso # Seg Neutrophils % Seg Neuts % (Manual) Lymphocytes % (Manual) Monocytes % (Manual) Basophils % (Manual) Nucleated RBC % Seg Neutrophils # Seg Neutrophils # Man Lymphocytes # (Manual) Monocytes # (Manual) Eosinophils # (Manual) Basophils # (Manual) PT INR D-Dimer ABG pH ABG pO2 ABG HCO3 ABG O2 Saturation ABG Base Excess ABG Hemoglobin Oxyhemoglobin Sodium Potassium Chloride Carbon Dioxide BUN 24 H Creatinine 0.4 L Glucose POC Glucose 107 H 110 H Lactic Acid Calcium Magnesium Iron TIBC Ferritin AST ALT Lactate Dehydrogenase Troponin T C-Reactive Protein Total Protein Albumin Prealbumin Cholesterol LDL Cholesterol Direct HDL Cholesterol Urine WBC (Auto) Vancomycin Trough Coronavirus (PCR) Crossmatch 07/23/19 07/23/19 07/24/19 06:00 23:15 04:40 WBC RBC Hgb Hct MCV MCH MCHC RDW Plt Count Lymph % (Auto) [place] % (Auto) Lymph # [place] # Baso # Seg Neutrophils % Seg Neuts % (Manual) Lymphocytes % (Manual) Monocytes % (Manual) Basophils % (Manual) Nucleated RBC % Seg Neutrophils # Seg Neutrophils # Man Lymphocytes # (Manual) Monocytes # (Manual) Eosinophils # (Manual) Basophils # (Manual) PT INR D-Dimer ABG pH ABG pO2 73.5 L ABG HCO3 27.0 H 28.5 H ABG O2 Saturation 94.5 L ABG Base Excess ABG Hemoglobin 9.4 L 8.9 L Oxyhemoglobin 94.0 L 92.7 L Sodium Potassium Chloride Carbon Dioxide BUN Creatinine Glucose POC Glucose 117 H Lactic Acid Calcium Magnesium Iron TIBC Ferritin AST ALT Lactate Dehydrogenase Troponin T C-Reactive Protein Total Protein Albumin Prealbumin Cholesterol LDL Cholesterol Direct HDL Cholesterol Urine WBC (Auto) Vancomycin Trough Coronavirus (PCR) Crossmatch 07/24/19 07/24/19 07/25/19 05:25 12:06 00:16 WBC RBC Hgb Hct MCV MCH MCHC RDW Plt Count Lymph % (Auto) [place] % (Auto) Lymph # [place] # Baso # Seg Neutrophils % Seg Neuts % (Manual) Lymphocytes % (Manual) Monocytes % (Manual) Basophils % (Manual) Nucleated RBC % Seg Neutrophils # Seg Neutrophils # Man Lymphocytes # (Manual) Monocytes # (Manual) Eosinophils # (Manual) Basophils # (Manual) PT INR D-Dimer ABG pH ABG pO2 ABG HCO3 ABG O2 Saturation ABG Base Excess ABG Hemoglobin Oxyhemoglobin Sodium Potassium Chloride Carbon Dioxide BUN Creatinine Glucose POC Glucose 114 H 108 H 106 H Lactic Acid Calcium Magnesium Iron TIBC Ferritin AST ALT Lactate Dehydrogenase Troponin T C-Reactive Protein Total Protein Albumin Prealbumin Cholesterol LDL Cholesterol Direct HDL Cholesterol Urine WBC (Auto) Vancomycin Trough Coronavirus (PCR) Crossmatch 07/25/19 07/25/19 07/25/19 05:14 05:14 05:17 WBC 17.8 H RBC 3.32 L Hgb 9.2 L Hct 28.6 L MCV MCH MCHC RDW 19.9 H Plt Count 994 H Lymph % (Auto) [place] % (Auto) Lymph # [place] # Baso # Seg Neutrophils % Seg Neuts % (Manual) 82.0 H Lymphocytes % (Manual) 5.0 L Monocytes % (Manual) Basophils % (Manual) Nucleated RBC % Seg Neutrophils # Seg Neutrophils # Man 14.6 H Lymphocytes # (Manual) 0.9 L Monocytes # (Manual) 1.2 H Eosinophils # (Manual) Basophils # (Manual) PT INR D-Dimer ABG pH ABG pO2 ABG HCO3 ABG O2 Saturation ABG Base Excess ABG Hemoglobin Oxyhemoglobin Sodium Potassium Chloride Carbon Dioxide BUN Creatinine 0.4 L Glucose 110 H POC Glucose 107 H Lactic Acid Calcium Magnesium Iron TIBC Ferritin AST ALT Lactate Dehydrogenase Troponin T C-Reactive Protein Total Protein Albumin Prealbumin Cholesterol LDL Cholesterol Direct HDL Cholesterol Urine WBC (Auto) Vancomycin Trough Coronavirus (PCR) Crossmatch 07/25/19 07/25/19 07/26/19 11:55 23:49 06:01 WBC RBC Hgb Hct MCV MCH MCHC RDW Plt Count Lymph % (Auto) [place] % (Auto) Lymph # [place] # Baso # Seg Neutrophils % Seg Neuts % (Manual) Lymphocytes % (Manual) Monocytes % (Manual) Basophils % (Manual) Nucleated RBC % Seg Neutrophils # Seg Neutrophils # Man Lymphocytes # (Manual) Monocytes # (Manual) Eosinophils # (Manual) Basophils # (Manual) PT INR D-Dimer ABG pH ABG pO2 ABG HCO3 ABG O2 Saturation ABG Base Excess ABG Hemoglobin Oxyhemoglobin Sodium Potassium Chloride Carbon Dioxide BUN Creatinine Glucose POC Glucose 123 H 118 H 106 H Lactic Acid Calcium Magnesium Iron TIBC Ferritin AST ALT Lactate Dehydrogenase Troponin T C-Reactive Protein Total Protein Albumin Prealbumin Cholesterol LDL Cholesterol Direct HDL Cholesterol Urine WBC (Auto) Vancomycin Trough Coronavirus (PCR) Crossmatch 07/26/19 07/27/19 07/27/19 17:02 00:28 05:16 WBC RBC Hgb Hct MCV MCH MCHC RDW Plt Count Lymph % (Auto) [place] % (Auto) Lymph # [place] # Baso # Seg Neutrophils % Seg Neuts % (Manual) Lymphocytes % (Manual) Monocytes % (Manual) Basophils % (Manual) Nucleated RBC % Seg Neutrophils # Seg Neutrophils # Man Lymphocytes # (Manual) Monocytes # (Manual) Eosinophils # (Manual) Basophils # (Manual) PT INR D-Dimer ABG pH ABG pO2 63.4 L ABG HCO3 31.3 H ABG O2 Saturation 92.7 L ABG Base Excess 6.3 H ABG Hemoglobin 7.6 L Oxyhemoglobin 90.9 L Sodium Potassium Chloride Carbon Dioxide BUN Creatinine Glucose POC Glucose 116 H 158 H Lactic Acid Calcium Magnesium Iron TIBC Ferritin AST ALT Lactate Dehydrogenase Troponin T C-Reactive Protein Total Protein Albumin Prealbumin Cholesterol LDL Cholesterol Direct HDL Cholesterol Urine WBC (Auto) Vancomycin Trough Coronavirus (PCR) Crossmatch 07/28/19 07/28/19 07/28/19 10:13 10:13 23:54 WBC 18.5 H RBC 3.20 L Hgb 8.8 L Hct 26.8 L MCV MCH 27 L MCHC RDW 19.9 H Plt Count 730 H Lymph % (Auto) [place] % (Auto) Lymph # [place] # Baso # Seg Neutrophils % Seg Neuts % (Manual) Lymphocytes % (Manual) Monocytes % (Manual) Basophils % (Manual) Nucleated RBC % Seg Neutrophils # Seg Neutrophils # Man Lymphocytes # (Manual) Monocytes # (Manual) Eosinophils # (Manual) Basophils # (Manual) PT INR D-Dimer ABG pH ABG pO2 ABG HCO3 ABG O2 Saturation ABG Base Excess ABG Hemoglobin Oxyhemoglobin Sodium Potassium 3.2 L Chloride 97.5 L Carbon Dioxide 31 H BUN Creatinine 0.5 L Glucose POC Glucose 120 H Lactic Acid Calcium Magnesium Iron TIBC Ferritin AST ALT Lactate Dehydrogenase Troponin T C-Reactive Protein Total Protein Albumin Prealbumin Cholesterol LDL Cholesterol Direct HDL Cholesterol Urine WBC (Auto) Vancomycin Trough Coronavirus (PCR) Crossmatch 07/29/19 07/29/19 07/29/19 11:57 17:43 Unknown WBC RBC Hgb Hct MCV MCH MCHC RDW Plt Count Lymph % (Auto) [place] % (Auto) Lymph # [place] # Baso # Seg Neutrophils % Seg Neuts % (Manual) Lymphocytes % (Manual) Monocytes % (Manual) Basophils % (Manual) Nucleated RBC % Seg Neutrophils # Seg Neutrophils # Man Lymphocytes # (Manual) Monocytes # (Manual) Eosinophils # (Manual) Basophils # (Manual) PT INR D-Dimer ABG pH ABG pO2 ABG HCO3 ABG O2 Saturation ABG Base Excess ABG Hemoglobin Oxyhemoglobin Sodium Potassium Chloride Carbon Dioxide BUN Creatinine Glucose POC Glucose 112 H Lactic Acid Calcium Magnesium Iron TIBC Ferritin AST ALT Lactate Dehydrogenase Troponin T C-Reactive Protein Total Protein Albumin Prealbumin Cholesterol LDL Cholesterol Direct HDL Cholesterol Urine WBC (Auto) 63.0 H Vancomycin Trough Coronavirus (PCR) Positive A Crossmatch 07/30/19 07/30/19 07/30/19 00:20 04:35 04:35 WBC 24.3 H RBC 3.12 L Hgb 8.5 L Hct 26.3 L MCV MCH 27 L MCHC RDW 20.2 H Plt Count 550 H Lymph % (Auto) [place] % (Auto) Lymph # [place] # Baso # Seg Neutrophils % Seg Neuts % (Manual) Lymphocytes % (Manual) Monocytes % (Manual) Basophils % (Manual) Nucleated RBC % Seg Neutrophils # Seg Neutrophils # Man Lymphocytes # (Manual) Monocytes # (Manual) Eosinophils # (Manual) Basophils # (Manual) PT INR D-Dimer ABG pH ABG pO2 ABG HCO3 ABG O2 Saturation ABG Base Excess ABG Hemoglobin Oxyhemoglobin Sodium Potassium 3.0 L Chloride 96.3 L Carbon Dioxide 32 H BUN Creatinine 0.5 L Glucose POC Glucose 106 H Lactic Acid Calcium Magnesium Iron TIBC Ferritin AST ALT Lactate Dehydrogenase Troponin T C-Reactive Protein Total Protein Albumin Prealbumin Cholesterol LDL Cholesterol Direct HDL Cholesterol Urine WBC (Auto) Vancomycin Trough Coronavirus (PCR) Crossmatch 07/31/19 07/31/19 07/31/19 04:42 04:42 11:33 WBC 23.8 H RBC 3.10 L Hgb 8.4 L Hct 26.1 L MCV MCH 27 L MCHC RDW 19.6 H Plt Count 561 H Lymph % (Auto) [place] % (Auto) Lymph # [place] # Baso # Seg Neutrophils % Seg Neuts % (Manual) Lymphocytes % (Manual) Monocytes % (Manual) Basophils % (Manual) Nucleated RBC % Seg Neutrophils # Seg Neutrophils # Man Lymphocytes # (Manual) Monocytes # (Manual) Eosinophils # (Manual) Basophils # (Manual) PT INR D-Dimer ABG pH ABG pO2 ABG HCO3 ABG O2 Saturation ABG Base Excess ABG Hemoglobin Oxyhemoglobin Sodium 135 L Potassium Chloride 93.9 L Carbon Dioxide 32 H BUN Creatinine 0.4 L Glucose POC Glucose 116 H Lactic Acid Calcium Magnesium Iron TIBC Ferritin AST ALT Lactate Dehydrogenase Troponin T C-Reactive Protein Total Protein Albumin 1.6 L Prealbumin 0.037 L Cholesterol LDL Cholesterol Direct HDL Cholesterol Urine WBC (Auto) Vancomycin Trough Coronavirus (PCR) Crossmatch 07/31/19 08/01/19 08/01/19 23:33 04:57 04:57 WBC 26.7 H RBC 3.12 L Hgb 8.5 L Hct 26.3 L MCV MCH 27 L MCHC RDW 19.2 H Plt Count 602 H Lymph % (Auto) [place] % (Auto) Lymph # [place] # Baso # Seg Neutrophils % Seg Neuts % (Manual) 93.0 H Lymphocytes % (Manual) 2.0 L Monocytes % (Manual) Basophils % (Manual) Nucleated RBC % Seg Neutrophils # Seg Neutrophils # Man 24.8 H Lymphocytes # (Manual) 0.5 L Monocytes # (Manual) 1.1 H Eosinophils # (Manual) Basophils # (Manual) PT INR D-Dimer ABG pH ABG pO2 ABG HCO3 ABG O2 Saturation ABG Base Excess ABG Hemoglobin Oxyhemoglobin Sodium 132 L Potassium Chloride 93.8 L Carbon Dioxide 31 H BUN Creatinine 0.3 L Glucose POC Glucose 148 H Lactic Acid Calcium 8.1 L Magnesium Iron TIBC Ferritin AST ALT Lactate Dehydrogenase Troponin T C-Reactive Protein Total Protein Albumin Prealbumin Cholesterol LDL Cholesterol Direct HDL Cholesterol Urine WBC (Auto) Vancomycin Trough Coronavirus (PCR) Crossmatch 08/01/19 08/02/19 08/02/19 12:16 00:22 05:24 WBC RBC Hgb Hct MCV MCH MCHC RDW Plt Count Lymph % (Auto) [place] % (Auto) Lymph # [place] # Baso # Seg Neutrophils % Seg Neuts % (Manual) Lymphocytes % (Manual) Monocytes % (Manual) Basophils % (Manual) Nucleated RBC % Seg Neutrophils # Seg Neutrophils # Man Lymphocytes # (Manual) Monocytes # (Manual) Eosinophils # (Manual) Basophils # (Manual) PT INR D-Dimer ABG pH ABG pO2 ABG HCO3 ABG O2 Saturation ABG Base Excess ABG Hemoglobin Oxyhemoglobin Sodium Potassium Chloride Carbon Dioxide BUN Creatinine Glucose POC Glucose 120 H 119 H 113 H Lactic Acid Calcium Magnesium Iron TIBC Ferritin AST ALT Lactate Dehydrogenase Troponin T C-Reactive Protein Total Protein Albumin Prealbumin Cholesterol LDL Cholesterol Direct HDL Cholesterol Urine WBC (Auto) Vancomycin Trough Coronavirus (PCR) Crossmatch 08/03/19 08/03/19 08/03/19 05:20 12:01 23:48 WBC RBC Hgb Hct MCV MCH MCHC RDW Plt Count Lymph % (Auto) [place] % (Auto) Lymph # [place] # Baso # Seg Neutrophils % Seg Neuts % (Manual) Lymphocytes % (Manual) Monocytes % (Manual) Basophils % (Manual) Nucleated RBC % Seg Neutrophils # Seg Neutrophils # Man Lymphocytes # (Manual) Monocytes # (Manual) Eosinophils # (Manual) Basophils # (Manual) PT INR D-Dimer ABG pH ABG pO2 ABG HCO3 ABG O2 Saturation ABG Base Excess ABG Hemoglobin Oxyhemoglobin Sodium Potassium Chloride Carbon Dioxide BUN Creatinine Glucose POC Glucose 118 H 106 H 120 H Lactic Acid Calcium Magnesium Iron TIBC Ferritin AST ALT Lactate Dehydrogenase Troponin T C-Reactive Protein Total Protein Albumin Prealbumin Cholesterol LDL Cholesterol Direct HDL Cholesterol Urine WBC (Auto) Vancomycin Trough Coronavirus (PCR) Crossmatch 08/04/19 08/04/19 08/04/19 05:38 05:38 06:29 WBC 26.1 H RBC 2.77 L Hgb 7.5 L Hct 23.2 L MCV MCH 27 L MCHC RDW 19.2 H Plt Count 648 H Lymph % (Auto) [place] % (Auto) Lymph # [place] # Baso # Seg Neutrophils % Seg Neuts % (Manual) 90.5 H Lymphocytes % (Manual) 3.5 L Monocytes % (Manual) Basophils % (Manual) Nucleated RBC % Seg Neutrophils # Seg Neutrophils # Man 23.6 H Lymphocytes # (Manual) 0.9 L Monocytes # (Manual) 1.2 H Eosinophils # (Manual) Basophils # (Manual) PT INR D-Dimer ABG pH ABG pO2 ABG HCO3 ABG O2 Saturation ABG Base Excess ABG Hemoglobin Oxyhemoglobin Sodium 132 L Potassium 3.4 L D Chloride 92.7 L Carbon Dioxide 33 H BUN Creatinine 0.2 L Glucose POC Glucose 108 H Lactic Acid Calcium 8.1 L Magnesium Iron TIBC Ferritin AST ALT Lactate Dehydrogenase Troponin T C-Reactive Protein Total Protein Albumin Prealbumin Cholesterol LDL Cholesterol Direct HDL Cholesterol Urine WBC (Auto) Vancomycin Trough Coronavirus (PCR) Crossmatch 08/04/19 08/05/19 08/05/19 12:30 04:58 04:58 WBC 21.0 H RBC 2.63 L Hgb 7.2 L Hct 21.9 L MCV 83 L MCH 27 L MCHC RDW 18.9 H Plt Count 691 H Lymph % (Auto) [place] % (Auto) Lymph # [place] # Baso # Seg Neutrophils % Seg Neuts % (Manual) 86.0 H Lymphocytes % (Manual) 3.0 L Monocytes % (Manual) 10.0 H Basophils % (Manual) Nucleated RBC % Seg Neutrophils # Seg Neutrophils # Man 18.1 H Lymphocytes # (Manual) 0.6 L Monocytes # (Manual) 2.1 H Eosinophils # (Manual) Basophils # (Manual) PT INR D-Dimer ABG pH ABG pO2 ABG HCO3 ABG O2 Saturation ABG Base Excess ABG Hemoglobin Oxyhemoglobin Sodium 134 L Potassium 3.2 L Chloride 93.2 L Carbon Dioxide 34 H BUN 8 L Creatinine 0.3 L Glucose POC Glucose 138 H Lactic Acid Calcium 8.1 L Magnesium Iron TIBC Ferritin AST ALT Lactate Dehydrogenase Troponin T C-Reactive Protein Total Protein Albumin Prealbumin Cholesterol LDL Cholesterol Direct HDL Cholesterol Urine WBC (Auto) Vancomycin Trough Coronavirus (PCR) Crossmatch 08/05/19 08/05/19 08/05/19 11:53 17:57 23:58 WBC RBC Hgb Hct MCV MCH MCHC RDW Plt Count Lymph % (Auto) [place] % (Auto) Lymph # [place] # Baso # Seg Neutrophils % Seg Neuts % (Manual) Lymphocytes % (Manual) Monocytes % (Manual) Basophils % (Manual) Nucleated RBC % Seg Neutrophils # Seg Neutrophils # Man Lymphocytes # (Manual) Monocytes # (Manual) Eosinophils # (Manual) Basophils # (Manual) PT INR D-Dimer ABG pH ABG pO2 ABG HCO3 ABG O2 Saturation ABG Base Excess ABG Hemoglobin Oxyhemoglobin Sodium Potassium Chloride Carbon Dioxide BUN Creatinine Glucose POC Glucose 106 H 111 H 116 H Lactic Acid Calcium Magnesium Iron TIBC Ferritin AST ALT Lactate Dehydrogenase Troponin T C-Reactive Protein Total Protein Albumin Prealbumin Cholesterol LDL Cholesterol Direct HDL Cholesterol Urine WBC (Auto) Vancomycin Trough Coronavirus (PCR) Crossmatch 08/06/19 08/06/19 08/06/19 04:11 04:11 06:04 WBC 20.8 H RBC 2.80 L Hgb 7.6 L Hct 23.5 L MCV MCH 27 L MCHC RDW 19.0 H Plt Count 723 H Lymph % (Auto) [place] % (Auto) Lymph # [place] # Baso # Seg Neutrophils % Seg Neuts % (Manual) 88.0 H Lymphocytes % (Manual) 3.0 L Monocytes % (Manual) Basophils % (Manual) Nucleated RBC % Seg Neutrophils # Seg Neutrophils # Man 18.3 H Lymphocytes # (Manual) 0.6 L Monocytes # (Manual) Eosinophils # (Manual) Basophils # (Manual) 0.2 H PT INR D-Dimer ABG pH ABG pO2 ABG HCO3 ABG O2 Saturation ABG Base Excess ABG Hemoglobin Oxyhemoglobin Sodium Potassium 3.4 L Chloride 95.2 L Carbon Dioxide 32 H BUN Creatinine 0.3 L Glucose POC Glucose 108 H Lactic Acid Calcium 8.2 L Magnesium Iron TIBC Ferritin AST ALT Lactate Dehydrogenase Troponin T C-Reactive Protein Total Protein Albumin Prealbumin Cholesterol LDL Cholesterol Direct HDL Cholesterol Urine WBC (Auto) Vancomycin Trough Coronavirus (PCR) Crossmatch 08/06/19 08/06/19 08/07/19 12:23 17:13 00:21 WBC RBC Hgb Hct MCV MCH MCHC RDW Plt Count Lymph % (Auto) [place] % (Auto) Lymph # [place] # Baso # Seg Neutrophils % Seg Neuts % (Manual) Lymphocytes % (Manual) Monocytes % (Manual) Basophils % (Manual) Nucleated RBC % Seg Neutrophils # Seg Neutrophils # Man Lymphocytes # (Manual) Monocytes # (Manual) Eosinophils # (Manual) Basophils # (Manual) PT INR D-Dimer ABG pH ABG pO2 ABG HCO3 ABG O2 Saturation ABG Base Excess ABG Hemoglobin Oxyhemoglobin Sodium Potassium Chloride Carbon Dioxide BUN Creatinine Glucose POC Glucose 112 H 132 H 147 H Lactic Acid Calcium Magnesium Iron TIBC Ferritin AST ALT Lactate Dehydrogenase Troponin T C-Reactive Protein Total Protein Albumin Prealbumin Cholesterol LDL Cholesterol Direct HDL Cholesterol Urine WBC (Auto) Vancomycin Trough Coronavirus (PCR) Crossmatch 08/07/19 08/07/19 08/07/19 05:16 05:23 05:23 WBC 30.3 H RBC 2.69 L Hgb 7.1 L Hct 22.2 L MCV 83 L MCH 27 L MCHC RDW 19.1 H Plt Count 650 H Lymph % (Auto) [place] % (Auto) Lymph # [place] # Baso # Seg Neutrophils % Seg Neuts % (Manual) 88.0 H Lymphocytes % (Manual) 5.0 L Monocytes % (Manual) Basophils % (Manual) Nucleated RBC % Seg Neutrophils # Seg Neutrophils # Man 26.7 H Lymphocytes # (Manual) Monocytes # (Manual) 2.1 H Eosinophils # (Manual) Basophils # (Manual) PT INR D-Dimer ABG pH ABG pO2 ABG HCO3 ABG O2 Saturation ABG Base Excess ABG Hemoglobin Oxyhemoglobin Sodium 135 L Potassium 3.4 L Chloride 95.4 L Carbon Dioxide 32 H BUN Creatinine 0.4 L Glucose 120 H POC Glucose 120 H Lactic Acid Calcium 7.7 L Magnesium Iron TIBC Ferritin AST ALT Lactate Dehydrogenase Troponin T C-Reactive Protein Total Protein Albumin Prealbumin Cholesterol LDL Cholesterol Direct HDL Cholesterol Urine WBC (Auto) Vancomycin Trough Coronavirus (PCR) Crossmatch 08/07/19 08/07/19 08/07/19 10:24 10:24 11:10 WBC RBC Hgb Hct MCV MCH MCHC RDW Plt Count Lymph % (Auto) [place] % (Auto) Lymph # [place] # Baso # Seg Neutrophils % Seg Neuts % (Manual) Lymphocytes % (Manual) Monocytes % (Manual) Basophils % (Manual) Nucleated RBC % Seg Neutrophils # Seg Neutrophils # Man Lymphocytes # (Manual) Monocytes # (Manual) Eosinophils # (Manual) Basophils # (Manual) PT INR D-Dimer 1808.06 H ABG pH ABG pO2 73.3 L ABG HCO3 33.9 H ABG O2 Saturation ABG Base Excess 9.0 H ABG Hemoglobin 6.3 L Oxyhemoglobin 94.3 L Sodium Potassium Chloride Carbon Dioxide BUN Creatinine Glucose POC Glucose Lactic Acid Calcium Magnesium Iron TIBC Ferritin AST ALT Lactate Dehydrogenase Troponin T C-Reactive Protein 11.10 H Total Protein Albumin Prealbumin Cholesterol LDL Cholesterol Direct HDL Cholesterol Urine WBC (Auto) Vancomycin Trough Coronavirus (PCR) Crossmatch 08/07/19 08/08/19 08/08/19 12:01 04:41 04:41 WBC 22.1 H RBC 2.82 L Hgb 7.7 L Hct 23.6 L MCV MCH 27 L MCHC RDW 19.1 H Plt Count 722 H Lymph % (Auto) [place] % (Auto) Lymph # [place] # Baso # Seg Neutrophils % Seg Neuts % (Manual) 90.0 H Lymphocytes % (Manual) 3.0 L Monocytes % (Manual) Basophils % (Manual) Nucleated RBC % Seg Neutrophils # Seg Neutrophils # Man 19.9 H Lymphocytes # (Manual) 0.7 L Monocytes # (Manual) 1.3 H Eosinophils # (Manual) Basophils # (Manual) PT INR D-Dimer ABG pH ABG pO2 ABG HCO3 ABG O2 Saturation ABG Base Excess ABG Hemoglobin Oxyhemoglobin Sodium 136 L Potassium Chloride 97.8 L Carbon Dioxide BUN Creatinine 0.3 L Glucose 105 H POC Glucose 130 H Lactic Acid Calcium 7.8 L Magnesium Iron TIBC Ferritin AST ALT Lactate Dehydrogenase Troponin T C-Reactive Protein Total Protein Albumin Prealbumin Cholesterol LDL Cholesterol Direct HDL Cholesterol Urine WBC (Auto) Vancomycin Trough Coronavirus (PCR) Crossmatch 08/08/19 08/08/19 08/09/19 11:46 18:35 00:12 WBC RBC Hgb Hct MCV MCH MCHC RDW Plt Count Lymph % (Auto) [place] % (Auto) Lymph # [place] # Baso # Seg Neutrophils % Seg Neuts % (Manual) Lymphocytes % (Manual) Monocytes % (Manual) Basophils % (Manual) Nucleated RBC % Seg Neutrophils # Seg Neutrophils # Man Lymphocytes # (Manual) Monocytes # (Manual) Eosinophils # (Manual) Basophils # (Manual) PT INR D-Dimer ABG pH ABG pO2 ABG HCO3 ABG O2 Saturation ABG Base Excess ABG Hemoglobin Oxyhemoglobin Sodium Potassium Chloride Carbon Dioxide BUN Creatinine Glucose POC Glucose 117 H 117 H 117 H Lactic Acid Calcium Magnesium Iron TIBC Ferritin AST ALT Lactate Dehydrogenase Troponin T C-Reactive Protein Total Protein Albumin Prealbumin Cholesterol LDL Cholesterol Direct HDL Cholesterol Urine WBC (Auto) Vancomycin Trough Coronavirus (PCR) Crossmatch 08/09/19 08/09/19 08/09/19 05:33 12:22 17:48 WBC RBC Hgb Hct MCV MCH MCHC RDW Plt Count Lymph % (Auto) [place] % (Auto) Lymph # [place] # Baso # Seg Neutrophils % Seg Neuts % (Manual) Lymphocytes % (Manual) Monocytes % (Manual) Basophils % (Manual) Nucleated RBC % Seg Neutrophils # Seg Neutrophils # Man Lymphocytes # (Manual) Monocytes # (Manual) Eosinophils # (Manual) Basophils # (Manual) PT INR D-Dimer ABG pH ABG pO2 ABG HCO3 ABG O2 Saturation ABG Base Excess ABG Hemoglobin Oxyhemoglobin Sodium Potassium Chloride Carbon Dioxide BUN Creatinine Glucose POC Glucose 119 H 133 H 123 H Lactic Acid Calcium Magnesium Iron TIBC Ferritin AST ALT Lactate Dehydrogenase Troponin T C-Reactive Protein Total Protein Albumin Prealbumin Cholesterol LDL Cholesterol Direct HDL Cholesterol Urine WBC (Auto) Vancomycin Trough Coronavirus (PCR) Crossmatch 08/09/19 08/09/19 08/10/19 17:59 18:15 00:02 WBC RBC Hgb 6.7 L Hct 20.4 L MCV MCH MCHC RDW Plt Count Lymph % (Auto) [place] % (Auto) Lymph # [place] # Baso # Seg Neutrophils % Seg Neuts % (Manual) Lymphocytes % (Manual) Monocytes % (Manual) Basophils % (Manual) Nucleated RBC % Seg Neutrophils # Seg Neutrophils # Man Lymphocytes # (Manual) Monocytes # (Manual) Eosinophils # (Manual) Basophils # (Manual) PT INR D-Dimer ABG pH ABG pO2 ABG HCO3 ABG O2 Saturation ABG Base Excess ABG Hemoglobin Oxyhemoglobin Sodium Potassium Chloride Carbon Dioxide BUN Creatinine Glucose POC Glucose 124 H Lactic Acid Calcium Magnesium Iron TIBC Ferritin AST ALT Lactate Dehydrogenase Troponin T C-Reactive Protein Total Protein Albumin Prealbumin Cholesterol LDL Cholesterol Direct HDL Cholesterol Urine WBC (Auto) Vancomycin Trough Coronavirus (PCR) Crossmatch See Detail 08/10/19 08/10/19 08/10/19 05:47 08:00 08:00 WBC 16.9 H RBC 2.94 L Hgb 8.2 L Hct 24.9 L MCV MCH MCHC RDW 17.0 H Plt Count 661 H Lymph % (Auto) [place] % (Auto) Lymph # [place] # Baso # Seg Neutrophils % Seg Neuts % (Manual) Lymphocytes % (Manual) Monocytes % (Manual) Basophils % (Manual) Nucleated RBC % Seg Neutrophils # Seg Neutrophils # Man Lymphocytes # (Manual) Monocytes # (Manual) Eosinophils # (Manual) Basophils # (Manual) PT INR D-Dimer ABG pH ABG pO2 ABG HCO3 ABG O2 Saturation ABG Base Excess ABG Hemoglobin Oxyhemoglobin Sodium Potassium Chloride Carbon Dioxide BUN Creatinine 0.3 L Glucose 116 H POC Glucose 148 H Lactic Acid Calcium 7.7 L Magnesium Iron TIBC Ferritin AST ALT Lactate Dehydrogenase Troponin T C-Reactive Protein Total Protein Albumin Prealbumin Cholesterol LDL Cholesterol Direct HDL Cholesterol Urine WBC (Auto) Vancomycin Trough Coronavirus (PCR) Crossmatch 08/10/19 08/10/1920 12:38 18:06 23:56 WBC RBC Hgb Hct MCV MCH MCHC RDW Plt Count Lymph % (Auto) [place] % (Auto) Lymph # [place] # Baso # Seg Neutrophils % Seg Neuts % (Manual) Lymphocytes % (Manual) Monocytes % (Manual) Basophils % (Manual) Nucleated RBC % Seg Neutrophils # Seg Neutrophils # Man Lymphocytes # (Manual) Monocytes # (Manual) Eosinophils # (Manual) Basophils # (Manual) PT INR D-Dimer ABG pH ABG pO2 ABG HCO3 ABG O2 Saturation ABG Base Excess ABG Hemoglobin Oxyhemoglobin Sodium Potassium Chloride Carbon Dioxide BUN Creatinine Glucose POC Glucose 113 H 126 H 115 H Lactic Acid Calcium Magnesium Iron TIBC Ferritin AST ALT Lactate Dehydrogenase Troponin T C-Reactive Protein Total Protein Albumin Prealbumin Cholesterol LDL Cholesterol Direct HDL Cholesterol Urine WBC (Auto) Vancomycin Trough Coronavirus (PCR) Crossmatch 08/10/19 08/11/19 08/12/19 Unknown 18:10 03:30 WBC 14.4 H RBC 2.58 L Hgb 7.4 L Hct 22.1 L MCV MCH MCHC RDW 17.4 H Plt Count 786 H Lymph % (Auto) [place] % (Auto) Lymph # [place] # Baso # Seg Neutrophils % Seg Neuts % (Manual) Lymphocytes % (Manual) Monocytes % (Manual) Basophils % (Manual) Nucleated RBC % Seg Neutrophils # Seg Neutrophils # Man Lymphocytes # (Manual) Monocytes # (Manual) Eosinophils # (Manual) Basophils # (Manual) PT INR D-Dimer ABG pH ABG pO2 ABG HCO3 ABG O2 Saturation ABG Base Excess ABG Hemoglobin Oxyhemoglobin Sodium Potassium Chloride Carbon Dioxide BUN Creatinine Glucose POC Glucose 106 H Lactic Acid Calcium Magnesium Iron TIBC Ferritin AST ALT Lactate Dehydrogenase Troponin T C-Reactive Protein Total Protein Albumin Prealbumin Cholesterol LDL Cholesterol Direct HDL Cholesterol Urine WBC (Auto) Vancomycin Trough Coronavirus (PCR) Positive A Crossmatch 08/12/19 08/12/19 08/13/19 03:30 12:08 05:25 WBC RBC Hgb Hct MCV MCH MCHC RDW Plt Count Lymph % (Auto) [place] % (Auto) Lymph # [place] # Baso # Seg Neutrophils % Seg Neuts % (Manual) Lymphocytes % (Manual) Monocytes % (Manual) Basophils % (Manual) Nucleated RBC % Seg Neutrophils # Seg Neutrophils # Man Lymphocytes # (Manual) Monocytes # (Manual) Eosinophils # (Manual) Basophils # (Manual) PT INR D-Dimer ABG pH ABG pO2 ABG HCO3 ABG O2 Saturation ABG Base Excess ABG Hemoglobin Oxyhemoglobin Sodium Potassium Chloride Carbon Dioxide BUN 7 L Creatinine 0.3 L Glucose 117 H POC Glucose 112 H 126 H Lactic Acid Calcium 7.8 L Magnesium Iron TIBC Ferritin AST ALT Lactate Dehydrogenase Troponin T C-Reactive Protein Total Protein Albumin Prealbumin Cholesterol LDL Cholesterol Direct HDL Cholesterol Urine WBC (Auto) Vancomycin Trough Coronavirus (PCR) Crossmatch 08/13/19 08/13/19 08/13/19 11:36 17:10 19:06 WBC RBC Hgb Hct MCV MCH MCHC RDW Plt Count Lymph % (Auto) [place] % (Auto) Lymph # [place] # Baso # Seg Neutrophils % Seg Neuts % (Manual) Lymphocytes % (Manual) Monocytes % (Manual) Basophils % (Manual) Nucleated RBC % Seg Neutrophils # Seg Neutrophils # Man Lymphocytes # (Manual) Monocytes # (Manual) Eosinophils # (Manual) Basophils # (Manual) PT INR D-Dimer ABG pH ABG pO2 105.0 H ABG HCO3 28.5 H ABG O2 Saturation ABG Base Excess 3.5 H ABG Hemoglobin 7.8 L Oxyhemoglobin Sodium Potassium Chloride Carbon Dioxide BUN Creatinine Glucose POC Glucose 143 H 107 H Lactic Acid Calcium Magnesium Iron TIBC Ferritin AST ALT Lactate Dehydrogenase Troponin T C-Reactive Protein Total Protein Albumin Prealbumin Cholesterol LDL Cholesterol Direct HDL Cholesterol Urine WBC (Auto) Vancomycin Trough Coronavirus (PCR) Crossmatch 08/13/19 08/14/19 08/14/19 23:23 05:00 05:00 WBC 14.3 H RBC 2.76 L Hgb 7.8 L Hct 23.9 L MCV MCH MCHC RDW 18.7 H Plt Count 896 H Lymph % (Auto) [place] % (Auto) Lymph # [place] # Baso # Seg Neutrophils % Seg Neuts % (Manual) Lymphocytes % (Manual) Monocytes % (Manual) Basophils % (Manual) Nucleated RBC % Seg Neutrophils # Seg Neutrophils # Man Lymphocytes # (Manual) Monocytes # (Manual) Eosinophils # (Manual) Basophils # (Manual) PT INR D-Dimer ABG pH ABG pO2 ABG HCO3 ABG O2 Saturation ABG Base Excess ABG Hemoglobin Oxyhemoglobin Sodium Potassium Chloride Carbon Dioxide BUN 6 L Creatinine 0.3 L Glucose POC Glucose 125 H Lactic Acid Calcium 8.2 L Magnesium Iron TIBC Ferritin AST ALT Lactate Dehydrogenase Troponin T C-Reactive Protein Total Protein Albumin Prealbumin Cholesterol LDL Cholesterol Direct HDL Cholesterol Urine WBC (Auto) Vancomycin Trough Coronavirus (PCR) Crossmatch 08/14/19 08/15/19 08/15/19 05:07 00:25 05:42 WBC RBC Hgb Hct MCV MCH MCHC RDW Plt Count Lymph % (Auto) [place] % (Auto) Lymph # [place] # Baso # Seg Neutrophils % Seg Neuts % (Manual) Lymphocytes % (Manual) Monocytes % (Manual) Basophils % (Manual) Nucleated RBC % Seg Neutrophils # Seg Neutrophils # Man Lymphocytes # (Manual) Monocytes # (Manual) Eosinophils # (Manual) Basophils # (Manual) PT INR D-Dimer ABG pH ABG pO2 ABG HCO3 ABG O2 Saturation ABG Base Excess ABG Hemoglobin Oxyhemoglobin Sodium Potassium Chloride Carbon Dioxide BUN Creatinine Glucose POC Glucose 128 H 117 H 115 H Lactic Acid Calcium Magnesium Iron TIBC Ferritin AST ALT Lactate Dehydrogenase Troponin T C-Reactive Protein Total Protein Albumin Prealbumin Cholesterol LDL Cholesterol Direct HDL Cholesterol Urine WBC (Auto) Vancomycin Trough Coronavirus (PCR) Crossmatch 08/15/19 08/15/19 08/15/19 06:10 06:10 06:10 WBC 11.6 H RBC 2.68 L Hgb 7.7 L Hct 23.3 L MCV MCH MCHC RDW 19.2 H Plt Count 885 H Lymph % (Auto) [place] % (Auto) Lymph # [place] # Baso # Seg Neutrophils % Seg Neuts % (Manual) Lymphocytes % (Manual) Monocytes % (Manual) Basophils % (Manual) Nucleated RBC % Seg Neutrophils # Seg Neutrophils # Man Lymphocytes # (Manual) Monocytes # (Manual) Eosinophils # (Manual) Basophils # (Manual) PT INR D-Dimer ABG pH ABG pO2 ABG HCO3 ABG O2 Saturation ABG Base Excess ABG Hemoglobin Oxyhemoglobin Sodium Potassium Chloride Carbon Dioxide BUN 6 L Creatinine 0.3 L Glucose 107 H POC Glucose Lactic Acid Calcium 8.2 L Magnesium 1.50 L Iron TIBC Ferritin AST ALT Lactate Dehydrogenase Troponin T C-Reactive Protein Total Protein Albumin Prealbumin Cholesterol LDL Cholesterol Direct HDL Cholesterol Urine WBC (Auto) Vancomycin Trough Coronavirus (PCR) Crossmatch 08/15/19 08/16/19 08/16/19 12:12 00:05 05:00 WBC 13.3 H RBC 2.87 L Hgb 8.1 L Hct 24.9 L MCV MCH MCHC RDW 18.7 H Plt Count 962 H Lymph % (Auto) [place] % (Auto) Lymph # [place] # Baso # Seg Neutrophils % Seg Neuts % (Manual) Lymphocytes % (Manual) Monocytes % (Manual) Basophils % (Manual) Nucleated RBC % Seg Neutrophils # Seg Neutrophils # Man Lymphocytes # (Manual) Monocytes # (Manual) Eosinophils # (Manual) Basophils # (Manual) PT INR D-Dimer ABG pH ABG pO2 ABG HCO3 ABG O2 Saturation ABG Base Excess ABG Hemoglobin Oxyhemoglobin Sodium Potassium Chloride Carbon Dioxide BUN Creatinine Glucose POC Glucose 112 H 111 H Lactic Acid Calcium Magnesium Iron TIBC Ferritin AST ALT Lactate Dehydrogenase Troponin T C-Reactive Protein Total Protein Albumin Prealbumin Cholesterol LDL Cholesterol Direct HDL Cholesterol Urine WBC (Auto) Vancomycin Trough Coronavirus (PCR) Crossmatch 08/16/19 08/16/19 08/16/19 05:00 05:00 23:35 WBC RBC Hgb Hct MCV MCH MCHC RDW Plt Count Lymph % (Auto) [place] % (Auto) Lymph # [place] # Baso # Seg Neutrophils % Seg Neuts % (Manual) Lymphocytes % (Manual) Monocytes % (Manual) Basophils % (Manual) Nucleated RBC % Seg Neutrophils # Seg Neutrophils # Man Lymphocytes # (Manual) Monocytes # (Manual) Eosinophils # (Manual) Basophils # (Manual) PT INR D-Dimer ABG pH ABG pO2 ABG HCO3 ABG O2 Saturation ABG Base Excess ABG Hemoglobin Oxyhemoglobin Sodium 135 L Potassium Chloride Carbon Dioxide BUN 6 L Creatinine 0.3 L Glucose POC Glucose 108 H Lactic Acid Calcium 8.2 L Magnesium Iron TIBC Ferritin AST ALT Lactate Dehydrogenase Troponin T C-Reactive Protein 2.70 H Total Protein Albumin 2.1 L Prealbumin Cholesterol LDL Cholesterol Direct HDL Cholesterol Urine WBC (Auto) Vancomycin Trough Coronavirus (PCR) Crossmatch 08/17/19 08/17/19 08/17/19 05:15 20:20 23:42 WBC RBC Hgb Hct MCV MCH MCHC RDW Plt Count Lymph % (Auto) [place] % (Auto) Lymph # [place] # Baso # Seg Neutrophils % Seg Neuts % (Manual) Lymphocytes % (Manual) Monocytes % (Manual) Basophils % (Manual) Nucleated RBC % Seg Neutrophils # Seg Neutrophils # Man Lymphocytes # (Manual) Monocytes # (Manual) Eosinophils # (Manual) Basophils # (Manual) PT INR D-Dimer ABG pH ABG pO2 ABG HCO3 27.8 H ABG O2 Saturation ABG Base Excess ABG Hemoglobin 11.4 L Oxyhemoglobin 94.6 L Sodium Potassium Chloride Carbon Dioxide BUN Creatinine Glucose POC Glucose 138 H 132 H Lactic Acid Calcium Magnesium Iron TIBC Ferritin AST ALT Lactate Dehydrogenase Troponin T C-Reactive Protein Total Protein Albumin Prealbumin Cholesterol LDL Cholesterol Direct HDL Cholesterol Urine WBC (Auto) Vancomycin Trough Coronavirus (PCR) Crossmatch 08/18/19 08/18/19 08/18/19 06:00 06:00 12:02 WBC 19.7 H RBC 3.30 L Hgb 9.3 L Hct 28.5 L MCV MCH MCHC RDW 18.9 H Plt Count 923 H Lymph % (Auto) [place] % (Auto) Lymph # [place] # Baso # Seg Neutrophils % Seg Neuts % (Manual) Lymphocytes % (Manual) Monocytes % (Manual) Basophils % (Manual) Nucleated RBC % Seg Neutrophils # Seg Neutrophils # Man Lymphocytes # (Manual) Monocytes # (Manual) Eosinophils # (Manual) Basophils # (Manual) PT INR D-Dimer ABG pH ABG pO2 ABG HCO3 ABG O2 Saturation ABG Base Excess ABG Hemoglobin Oxyhemoglobin Sodium 136 L Potassium Chloride Carbon Dioxide BUN Creatinine 0.4 L Glucose 71 L POC Glucose 123 H Lactic Acid Calcium Magnesium Iron TIBC Ferritin AST ALT Lactate Dehydrogenase Troponin T C-Reactive Protein Total Protein Albumin Prealbumin Cholesterol LDL Cholesterol Direct HDL Cholesterol Urine WBC (Auto) Vancomycin Trough Coronavirus (PCR) Crossmatch 08/18/19 08/18/19 08/19/19 18:23 23:16 04:57 WBC RBC Hgb Hct MCV MCH MCHC RDW Plt Count Lymph % (Auto) [place] % (Auto) Lymph # [place] # Baso # Seg Neutrophils % Seg Neuts % (Manual) Lymphocytes % (Manual) Monocytes % (Manual) Basophils % (Manual) Nucleated RBC % Seg Neutrophils # Seg Neutrophils # Man Lymphocytes # (Manual) Monocytes # (Manual) Eosinophils # (Manual) Basophils # (Manual) PT INR D-Dimer ABG pH ABG pO2 ABG HCO3 ABG O2 Saturation ABG Base Excess ABG Hemoglobin Oxyhemoglobin Sodium Potassium Chloride Carbon Dioxide BUN Creatinine Glucose POC Glucose 140 H 159 H 134 H Lactic Acid Calcium Magnesium Iron TIBC Ferritin AST ALT Lactate Dehydrogenase Troponin T C-Reactive Protein Total Protein Albumin Prealbumin Cholesterol LDL Cholesterol Direct HDL Cholesterol Urine WBC (Auto) Vancomycin Trough Coronavirus (PCR) Crossmatch 08/19/19 08/19/19 08/19/19 07:44 08:17 18:15 WBC 30.5 H RBC 2.87 L Hgb 7.9 L Hct 24.5 L MCV MCH MCHC RDW 18.8 H Plt Count 772 H Lymph % (Auto) [place] % (Auto) Lymph # [place] # Baso # Seg Neutrophils % Seg Neuts % (Manual) 89.0 H Lymphocytes % (Manual) 4.0 L Monocytes % (Manual) Basophils % (Manual) 2.0 H Nucleated RBC % Seg Neutrophils # Seg Neutrophils # Man 27.1 H Lymphocytes # (Manual) Monocytes # (Manual) 0.9 H Eosinophils # (Manual) 0.6 H Basophils # (Manual) 0.6 H PT INR D-Dimer ABG pH ABG pO2 ABG HCO3 ABG O2 Saturation ABG Base Excess ABG Hemoglobin Oxyhemoglobin Sodium 136 L Potassium Chloride Carbon Dioxide BUN Creatinine 0.3 L Glucose POC Glucose 106 H Lactic Acid Calcium 8.2 L Magnesium Iron TIBC Ferritin AST ALT Lactate Dehydrogenase Troponin T C-Reactive Protein Total Protein Albumin Prealbumin Cholesterol LDL Cholesterol Direct HDL Cholesterol Urine WBC (Auto) Vancomycin Trough Coronavirus (PCR) Crossmatch 08/19/19 08/20/19 08/20/19 23:46 06:20 Unknown WBC 18.7 H RBC 2.70 L Hgb 7.6 L Hct 23.1 L MCV MCH MCHC RDW 18.9 H Plt Count 690 H Lymph % (Auto) [place] % (Auto) Lymph # [place] # Baso # Seg Neutrophils % Seg Neuts % (Manual) Lymphocytes % (Manual) Monocytes % (Manual) Basophils % (Manual) Nucleated RBC % Seg Neutrophils # Seg Neutrophils # Man Lymphocytes # (Manual) Monocytes # (Manual) Eosinophils # (Manual) Basophils # (Manual) PT INR D-Dimer ABG pH ABG pO2 ABG HCO3 ABG O2 Saturation ABG Base Excess ABG Hemoglobin Oxyhemoglobin Sodium Potassium Chloride Carbon Dioxide BUN Creatinine Glucose POC Glucose 144 H 115 H Lactic Acid Calcium Magnesium Iron TIBC Ferritin AST ALT Lactate Dehydrogenase Troponin T C-Reactive Protein Total Protein Albumin Prealbumin Cholesterol LDL Cholesterol Direct HDL Cholesterol Urine WBC (Auto) Vancomycin Trough Coronavirus (PCR) Crossmatch 08/20/19 Unknown WBC RBC Hgb Hct MCV MCH MCHC RDW Plt Count Lymph % (Auto) [place] % (Auto) Lymph # [place] # Baso # Seg Neutrophils % Seg Neuts % (Manual) Lymphocytes % (Manual) Monocytes % (Manual) Basophils % (Manual) Nucleated RBC % Seg Neutrophils # Seg Neutrophils # Man Lymphocytes # (Manual) Monocytes # (Manual) Eosinophils # (Manual) Basophils # (Manual) PT INR D-Dimer ABG pH ABG pO2 ABG HCO3 ABG O2 Saturation ABG Base Excess ABG Hemoglobin Oxyhemoglobin Sodium 134 L Potassium Chloride 97.9 L Carbon Dioxide BUN Creatinine 0.3 L Glucose 115 H POC Glucose Lactic Acid Calcium 8.2 L Magnesium Iron TIBC Ferritin AST ALT Lactate Dehydrogenase Troponin T C-Reactive Protein Total Protein Albumin Prealbumin Cholesterol LDL Cholesterol Direct HDL Cholesterol Urine WBC (Auto) Vancomycin Trough Coronavirus (PCR) Crossmatch Allied health notes reviewed: nursing
[2019-08-20] MEDS: levETIRAcetam 500 MG/5 ML ORAL LIQD FEEDTUBE SCH ×2 (09:28→21:43)
[2019-08-20] MEDS: ENOXAPARIN 40 MG/0.4 ML INJ SUB-Q SCH (09:28)
[2019-08-20] MEDS: FAMOTIDINE 20 MG TAB PO SCH ×2 (09:28→21:43)
[2019-08-20] MEDS: FOLIC ACID 1 MG TAB PO SCH (09:29)
[2019-08-20] MEDS: GLYCOPYRROLATE 1 MG TAB PO SCH ×3 (09:29→21:43)
[2019-08-20] MEDS: ASPIRIN 81 MG TAB CHEW PO SCH (09:29)
--- NOTE | 2019-08-20 10:50 | XRay Report ---
ABDOMEN 1 VIEW(S) INDICATION: NGT placement COMPARISON: None available. FINDINGS: Nasogastric tube has its tip in the stomach Bowel gas pattern: Moderate amount of gas present throughout the large and small bowel Free air: None. Calcified gallstones: None seen. Calcified urinary tract calculi: None seen. Additional Findings: None. Skeletal structures: No acute abnormality. IMPRESSION: 1. No acute findings. Signer Name: Mateo Carlson MD Signed: 08/20/2019 10:46 AM Workstation Name: [email or web address]
--- NOTE | 2019-08-20 12:23 | Progress Note ---
Assessment and Plan Cultures: 07/03/2019 urine culture: No growth 07/03/2019 Tracheal aspirate: E.coli 07/29/2019 urine culture: neg 07/30/2019 blood culture: no growth tracheal asp + Pseudomonas 08/06/2019 blood culture: no growth 08/09/2019 Wound MDR Enterobacter 08/16/2019 blood culture: no growth to date A/P: 69-year-old male with CVA, hypertension, dementia, schizophrenia, alcohol use disorder was admitted to the emergency room after being brought in by EMS with progressive shortness of breath and unresponsiveness. He was noted to have agonal breathing and a faint pulse requiring CPR. It seems patient was on hos pice recently, prior to admission. #Shock, likely septic: shock resolved, remains off pressors. still intermittent fever, leukocytosis worse again: bacterial pneumonia vs sacral decubitus infection. #Nonresolving pneumonia/Cavitary pneumonia: ? abscess. Sputum +Pseudomonas. CT shows RUL pneumonia with 2.4 cm cavity and LLL pneumonia with moderate left pleural effusion. No need for thoracentesis per Pulm #Penile/scrotal and buttocks wounds: ?cellulitis #Sacral decubitus: worsening on last exam ? necrotic. Evaluated for surgery, no indications for intervention. 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 bleeding overnight s/p surgical management bedside, 08/09/2019 Wound MDR Enterobacter likely a colonizer (superficial wound cx) #UTI: per documentation initial carroll placed on 07/03, exchanged on 07/31. #Severe COVID-19 disease and pneumonia: Markers improving. Completed Plaquenil. Completed Ceftriaxone for treatment E.coli in tracheal aspirate. Repeat COVID 08/10/2019 positive. #Acute respiratory failure: remains on mechanical ventilation. #Multiple skin tears documented on admission #Anemia: from sacral wound bleeding Recs: Continue IV Levofloxacin Day 2 Continue wound care Last COVID PCR positive was a week ago, so can recheck today (order placed) Overall prognosis is extremely poor Yanna Calzada MD, FACP [facility] C: [phone] O: [phone] F: [phone] Subjective Date of service: 08/20/19 Principal diagnosis: Bilateral pneumonia, severe sepsis with septic shock, encephalopathy Interval history: Low grade temperatures, otherwise stable. Remains on the vent, in ICU. No diarrhea per d/w BETTY Munoz. Wounds stable. Objective - Exam Narrative Exam: Physical Exam (reviewed in chart due to PPE conservation) Constitutional: intubated, sedated, on the vent Head, Ears, Nose: normocephalic, atraumatic Eyes: limited due to PPE conservation strategy Neck: intubated Oral: intubated Cardiovascular: limited due to PPE conservation strategy Respiratory: limited due to PPE conservation strategy GI: limited due to PPE conservation strategy Musculoskeletal: limited due to PPE conservation strategy Skin: limited due to PPE conservation strategy. Decubitus + Hem/Lymphatic: limited due to PPE conservation strategy Psych: no agitation Neurological: sedated, intubated, on the vent, exam limited - Constitutional Vitals: Vital Signs Temp Pulse Resp BP Pulse Ox 100.2 F H 116 H 24 145/83 99 08/20/19 08:00 08/20/19 08:00 08/20/19 08:00 08/20/19 08:00 08/20/19 08:00 Temperature -Last 24 Hours Temperature 100.2 F Temperature 100.7 F Temperature 99.8 F Temperature 98.9 F Temperature 100.7 F - Labs CBC & Chem 7: 08/20/19 Unknown 08/20/19 Unknown Labs: Abnormal lab results 08/19/19 08/19/19 08/20/19 Range/Units 18:15 23:46 06:20 WBC (4.5-11.0) K/mm3 RBC (3.65-5.03) M/mm3 Hgb (11.8-15.2) gm/dl Hct (35.5-45.6) % RDW (13.2-15.2) % Plt Count (140-440) K/mm3 Sodium (137-145) mmol/L Chloride (98-107) mmol/L Creatinine (0.8-1.5) mg/dL Glucose (75-100) mg/dL POC Glucose 106 H 144 H 115 H (70-105) Calcium (8.4-10.2) mg/dL 08/20/19 08/20/19 Range/Units Unknown Unknown WBC 18.7 H (4.5-11.0) K/mm3 RBC 2.70 L (3.65-5.03) M/mm3 Hgb 7.6 L (11.8-15.2) gm/dl Hct 23.1 L (35.5-45.6) % RDW 18.9 H (13.2-15.2) % Plt Count 690 H (140-440) K/mm3 Sodium 134 L (137-145) mmol/L Chloride 97.9 L (98-107) mmol/L Creatinine 0.3 L (0.8-1.5) mg/dL Glucose 115 H (75-100) mg/dL POC Glucose (70-105) Calcium 8.2 L (8.4-10.2) mg/dL
--- NOTE | 2019-08-20 13:53 | Progress Note ---
Assessment and Plan Assessment and plan: 69-year-old male with PMH of CVA with RHP, HTN, DM2, SCZ, Dementia, Alcohol use D/o, Seizure D/O, presents to the emergency department via EMS from home with progressive SOB and impending respiratory failure with an unresponsive episode. Apparently the patient was witnessed becoming unresponsive by family members. Reportedly, pt had just gotten a high dose of Hyoscamine When EMS got there, the patient was agonal breathing and had a faint pulse. No CPR was indicated per EMS. PT was intubated and received some IV fluid en route to the hospital. THe pt was under hospice- [facility] and reportedly the patient is a DNR according to the family but they were unable to provide the appropriate paperwork and to explain why the pt was discharged from hospice. The patient is bed bound and has LE atrophy and contractures. He also has history of cervical spine fracture, allegedly a fracture of some level of his back. A reliable HPI cannot be obtained from the pt due to mechanical ventilation. In the ED, pt was found to have bilateral PNA on CXR and WBC was 30K. --COVid positive pneumonia with severe sepsis ?abscess No need for drianage per ID/pULM Received Plaquenil and cefepime, monitor off antibiotics ID following --Recurrent fever --Acute metabolic encephalopathy: Unchanged despite no sedation --Septic shock: Improving hemodynamics was treated with Pressors Persistent hypotension, -- Acute respiratory Failure with Hypoxia Due to bilateral PNA with COVID 19 infection. On ventilatory support, unable to wean Pulmonary critical following --COPD with exacerbation Likely due to COVID-19 pneumonia Continue scheduled nebs --Anemia, Microcytic persistent s/p total 3 unit of PRBC, today Hb today 9.1 --Pressure Ulcers: concerning for osteomylitis POA/ Scrotal ulcers buttocks, right lateral foot area wound and supportive care --Hyponatremia, resolved --DM type 2: Accu-Chek SCC tube feeding, insulin as needed --h/o HTN Essential, now hypotensive On Levophed --Seizure D/o/CVA/immobility/BIpolar D/o/SCZ Seizure precautions, antiepileptic medications --Severe PCM, TF supportive care, dietary following patient is DNR- Called and verified information Very poor prognosis, Recommend hospice 07/04: COVID +ve, start on plaquinil, called no answer 07/05: transfuse one unit PRBC, Hb dropped to ~6, called and updated 07/06; H&H stable, serum chemistry improved. On mechanical ventilation with high inflammatory markers. Continue Plaquenil and empiric antibiotics. ID following, prognosis remains guarded and extremely poor. 07/07: On mechanical ventilation with high inflammatory markers. Continue Plaquenil and empiric antibiotics. ID following, prognosis remains guarded and extremely poor. 07/08: Called today and verified the CODE STATUS. Patient remains DNR. He is still intubated, with poor prognosis. Continue to follow inflammatory markers. 07/09 wean off from vent as tolerated, completed empiric antibiotic and Plaquenil 07/10 wean off from vent as tolerated. poor prognosis 07/11 hb 6.7 today, transfuse one PRBC. wean off from vent as tolerated. poor prognosis 07/12 remains critically on vent. Hb 6.9 07/13 Hb dropped to 6.6, transfuse 1 unit of PRBC, remains on vent critically ill Hypotensive, fluid bolus, if no improvement start Levophed 07/14; remains anemic with hemoglobin of 6.8, received total 3 units of PRBC Additional 1 unit of PRBC today, stool for occult blood to rule out GI causes Started back on Levophed due to hypotension 07/15; patient remains critically ill, hypotensive on Levophed 07/16: Today remains intubated on vent, persistent hypotension on Levophed 07/17; clinically no change, pressor dependent[on Levophed] DNR status 07/18: Patient remains hypotensive requiring Levophed, intubated on vent Unable to wean, critically ill. DNR 07/20/2019 Patient remains hypotensive requiring Levophed, intubated on vent. Patient currently with AC mode ventilation, rate 20, tidal volume 500, FiO2 40% and PEEP 6. Patient is a poor prognosis and apparently was on hospice recently. 07/21/2019. Patient with PEG tube that was clogged yesterday. surgery evaluated the patient and noted Very long PEG tubing with thick material inside. The entire tube was stripped and a large amount of formed tube feed was expressed. The tube was then flushed with sprite and flushed easily. Tube clamped. Patient currently with AC mode ventilation, rate 20, tidal volume 500, FiO2 40% and PEEP 6. Patient is a poor prognosis and apparently was on hospice recently. 07/22/2019. Patient currently with AC mode ventilation, rate 20, tidal volume 500, FiO2 30% and PEEP 6. Patient on sedation with fentanyl drip. Continue Levophed to maintain MAP greater than 65. Patient is a poor prognosis and apparently was on hospice recently. 07/23/2019. Patient currently with AC mode ventilation, rate 20, tidal volume 500, FiO2 30% and PEEP 6. Patient on sedation with fentanyl drip. Continue Levophed to maintain MAP greater than 65. Patient is a poor prognosis and apparently was on hospice recently. 07/24/2019 Patient with Covid-19 infection with pneumonia, acute respiratory failure, intubated on ventilator. No more fever. Continue current management. 07/25/2019 Patient with Covid-19 infection with pneumonia, acute respiratory failure, intubated on ventilator. fever is now resolved. Sedated with propofol 07/26/2019 Patient with covid-19 infection. Still intubated, on vent. 07/27/2019 Patient with Covid-19. he is still critically ill. patient has DNR order. 07/28/2019 Patient with Covid-19 infection. Will repeat labs today. Surgeon consulted for tracheostomy. 07/29/2019 Patient with Covid-19. hypokalemia yesterday, replaced. Will recheck labs in am. 07/30/2019 patient with Covid-19 infection with acute respiratory failure. He is intubated on ventilator. has hypokalemia. replace and recheck BMP in am. patient has UTI, started on Cefepime. 07/31/2019. patient with Covid-19 infection with acute respiratory failure. He is intubated on ventilator. Repeat chest x-ray reveals decreased infiltrates. urology consultation and wound care consult per ID. Follow-up urine and blood culture. Tracheostomy per surgery. 08/01/2019. patient with Covid-19 infection with acute respiratory failure. He is intubated on ventilator. Patient currently with PSV trials. Pressure support 18/PEEP 6. FiO2 30%. Tracheostomy to be placed per surgery wound COVID testing negative. 08/02/2019. Patient with COVID-19 infection and acute respiratory failure on mechanical ventilation. Continue with PSVT trials with pressure support increased to 20. Follow-up serial chest x-ray. Continue Fentanyl infusion and wean sedation as tolerated. Continue daily spontaneous breathing trials. 08/03/2019. Patient with COVID-19 infection and acute respiratory failure on mechanical ventilation. Continue with PSV trials with pressure support incr eased to 20. Follow-up serial chest x-ray. Continue Fentanyl infusion and wean sedation as tolerated. Continue daily spontaneous breathing trials. 08/04/2019. Patient with COVID-19 infection and acute respiratory failure on mechanical ventilation. Continue with PSV trials 14/6, FiO2 30%. Continue Fentanyl infusion and wean sedation as tolerated. Continue daily spontaneous breathing trials. Tracheostomy placement to be scheduled when COVID testing is negative per surgery. Monitor off antibiotics per ID recommendations 08/05/2019. Patient with COVID-19 infection and acute respiratory failure on mechanical ventilation. Patient currently on AC mode, rate 14, tidal volume 500, FiO2 30% and PEEP of 6. Continue PSV trials as tolerated. Tracheostomy placement to be scheduled when COVID testing is negative per surgery. Monitor off antibiotics per ID recommendations. 08/06/2019. Patient with COVID-19 infection and acute respiratory failure on mechanical ventilation. Patient currently on AC mode, rate 14, tidal volume 500, FiO2 30% and PEEP of 6. Continue PSV trials as tolerated. Tracheostomy placement to be scheduled when COVID testing is negative per surgery. ID resta rted antibiotics with cefepime 2 g IV every 8 hours to cover for presumed Pseudomonas pneumonia. Follow-up chest x-ray and blood cultures. Repeat COVID testing 07/28 and positive. Repeat test tomorrow. 08/07/19 Patient with Covid-19, acute respiratory failure. He is still intubated on mechanical ventilator. For tracheostomy when Covid-19 test negative. Still having fever. Leukocytosis worse today, WBC 30.3. For CT Chest, Abdomen. 08/08/19 patient with Covid-19, acute respiratory failure. He is still critically ill, intubated. He is for tracheostomy after Covid-19 test negative. Fever improving. Temp 99.[address] Chest and Abdomen done yesterday pending. 08/09/2019 patient with Covid-19 infection, acute resp failure. Still intubated on ventilator. Fever of 100.3 this morning. I discussed with his Nurse 08/10/2019 Patient with Covid-19 infection. acute respirator failure. patient st ill in critical condition, intubated. 08/11/2019 Patient with Covid-19 infection, acute resp failure. He is still intubated on vent. 08/12/2019 Patient with Covid-19 infection, acute resp failure. He is still intubated on vent. Discussed with yesterday and gave update. Covid-19 test done 08/09 still positive. 08/13/2019 Patient with Covid-19 infection, acute resp failure. He is still intubated on vent. Discussed with 08/10 and gave update. Covid-19 test done 08/09 still positive. Fever of 101.8 last night 08/14/19: Remains on full ventilatory support. No clinical change 08/14: Remains in full ventilatory support. Replace electrolytes, awaiting Negative covid testing to be able to do Trach and Peg. Per ID Anticipate to d/c on zosyn 4.5 gm IV q 8 hour for 3 weeks until 08/27/2019 to cover for lung abscess and sacral wound infection/osteomyelitis, I am holding off 6 weeks treatment for osteomyelitis as possibility of flap/healing is unlikely. 08/15: No clinical change. Remains on full ventilatory support. Discussed with consulting physicians. We will continue to wean as tolerated. Awaiting negative COVID test prior to trach and PEG. Continue intermittent labs monitor hemoglobin. Platelets continues to rise. This could be a reactive reaction. 08/16: Awaiting negative COVID test for placement of trach and PEG. In the meantime we will continue aggressive attempt to wean patient. Cultures have been reviewed and discussed with infectious disease who is managing treatment at this time. Continue wound care dressing. Multiple skin tears were noted on admission will continue to follow. Patient receiving repeat chest x-ray reviewed today shows stable bilateral pulmonary disease and no acuity noted on KUB due to persistent fever ID reviewing increases acidophil wondering if there is drug fever will follow closely. Prognosis remains guarded. 08/17: Continue current management, monitor WBC, mildly elevated. 08/18: Remains on full ventilatory support mental status still unchanged. Continue supportive care. Antibiotics adjustment per ID. Discussed with nursing staff will do some wound dressing changes today to see progression. My understanding was that the wounds did have significant bleed last time but tampo naded. Will monitor in the setting of anemia. 6/1: Remains on full ventilatory support mental status still unchanged. Repeat COVID19 Testing to allow for Trach and Peg and transfer to LTAC. Continue supportive care. Antibiotics adjustment per ID. poor prognosis. b/l chest xray unchanged. continue wound care The high probability of a clinically significant, sudden or life threatening deterioration of the [respiratory, [employer], [employer]] system(s) required my full and direct attention, intervention and personal management. The aggregate critical care time was [35] minutes. This time is in addition to time spent performing reported procedures but includes the following : [x] Data Review and interpretation [x] Patient assessment and monitoring of vital signs [x] Documentation [x] Medication orders and management History Interval history: Patient with Covid-19 infection Still intubated No clinical change Discussed with nursing staff patient awakens on verbal stimuli but not following commands, Hospitalist Physical - Physical exam Narrative exam: GEN: Not in acute distress, intubated, awakens to verbal stimuli but not following commands. Still markedly lethargic HEENT: Normocephalic, atraumatic, Neck: Supple, No JVD Lungs: Bilateral crackles, Heart; S1 and S2 reg, no murmurs, rubs or gallop Abd:soft, non tender, non distended, normal bowel sounds,PEG tube Ext: Dependent edema hands and feet. No clubbing, no cyanosis, contracted Neuro: Intubated, on ventilator Skin: See full documentation by wound care nurse. Pain no ulcer with dressing noted. - Constitutional Vitals: Temp Pulse Resp BP Pulse Ox 98.4 F 124 H 33 H 138/75 100 08/20/19 12:00 08/20/19 09:30 08/20/19 09:30 08/20/19 09:30 08/20/19 09:30 General appearance: Present: other (Orally intubated on vent) HEART Score - HEART Score Troponin: Troponin T 0.013 ng/mL (0.00-0.029) 07/04/19 07:05 Results - Labs CBC & Chem 7: 08/20/19 Unknown 08/20/19 Unknown Labs: Laboratory Last Values WBC 18.7 K/mm3 (4.5-11.0) H 08/20/19 Unknown RBC 2.70 M/mm3 (3.65-5.03) L 08/20/19 Unknown Hgb 7.6 gm/dl (11.8-15.2) L 08/20/19 Unknown Hct 23.1 % (35.5-45.6) L 08/20/19 Unknown MCV 86 fl (84-94) 08/20/19 Unknown MCH 28 pg (28-32) 08/20/19 Unknown MCHC 33 % (32-34) 08/20/19 Unknown RDW 18.9 % (13.2-15.2) H 08/20/19 Unknown Plt Count 690 K/mm3 (140-440) H 08/20/19 Unknown Lymph % (Auto) 4.9 % (13.4-35.0) L 07/19/19 08:45 [place] % (Auto) 12.2 % (0.0-7.3) H 07/22/19 05:38 Eos % (Auto) 1.0 % (0.0-4.3) 07/19/19 08:45 Baso % (Auto) 0.5 % (0.0-1.8) 07/19/19 08:45 Lymph # 0.8 K/mm3 (1.2-5.4) L 07/19/19 08:45 [place] # 1.5 K/mm3 (0.0-0.8) H 07/22/19 05:38 Eos # 0.2 K/mm3 (0.0-0.4) 07/19/19 08:45 Baso # 0.1 K/mm3 (0.0-0.1) 07/19/19 08:45 Add Manual Diff Complete 08/19/19 08:17 Total Counted 100 08/19/19 08:17 Seg Neutrophils % 72.8 % (40.0-70.0) H 07/22/19 05:38 Seg Neuts % (Manual) 89.0 % (40.0-70.0) H 08/19/19 08:17 Band Neutrophils % 0 % 08/19/19 08:17 Lymphocytes % (Manual) 4.0 % (13.4-35.0) L 08/19/19 08:17 Reactive Lymphs % (Man) 0 % 08/19/19 08:17 Monocytes % (Manual) 3.0 % (0.0-7.3) 08/19/19 08:17 Eosinophils % (Manual) 2.0 % (0.0-4.3) 08/19/19 08:17 Basophils % (Manual) 2.0 % (0.0-1.8) H 08/19/19 08:17 Metamyelocytes % 0 % 08/19/19 08:17 Myelocytes % 0 % 08/19/19 08:17 Promyelocytes % 0 % 08/19/19 08:17 Blast Cells % 0 % 08/19/19 08:17 Nucleated RBC % Not Reportable 08/19/19 08:17 Seg Neutrophils # 9.2 K/mm3 (1.8-7.7) H 07/22/19 05:38 Seg Neutrophils # Man 27.1 K/mm3 (1.8-7.7) H 08/19/19 08:17 Band Neutrophils # 0.0 K/mm3 08/19/19 08:17 Lymphocytes # (Manual) 1.2 K/mm3 (1.2-5.4) 08/19/19 08:17 Abs React Lymphs (Man) 0.0 K/mm3 08/19/19 08:17 Monocytes # (Manual) 0.9 K/mm3 (0.0-0.8) H 08/19/19 08:17 Eosinophils # (Manual) 0.6 K/mm3 (0.0-0.4) H 08/19/19 08:17 Basophils # (Manual) 0.6 K/mm3 (0.0-0.1) H 08/19/19 08:17 Metamyelocytes # 0.0 K/mm3 08/19/19 08:17 Myelocytes # 0.0 K/mm3 08/19/19 08:17 Promyelocytes # 0.0 K/mm3 08/19/19 08:17 Blast Cells # 0.0 K/mm3 08/19/19 08:17 WBC Morphology Not Reportable 08/19/19 08:17 Hypersegmented Neuts Not Reportable 08/19/19 08:17 Hyposegmented Neuts Not Reportable 08/19/19 08:17 Hypogranular Neuts Not Reportable 08/19/19 08:17 Smudge Cells Not Reportable 08/19/19 08:17 Toxic Granulation Not Reportable 08/19/19 08:17 Toxic Vacuolation Not Reportable 08/19/19 08:17 Dohle Bodies Not Reportable 08/19/19 08:17 Pelger-Huet Anomaly Not Reportable 08/19/19 08:17 Mendy Rods Not Reportable 08/19/19 08:17 Platelet Estimate Consistent w auto 08/19/19 08:17 Clumped Platelets Not Reportable 08/19/19 08:17 Plt Clumps, EDTA Not Reportable 08/19/19 08:17 Large Platelets Not Reportable 08/19/19 08:17 Giant Platelets Not Reportable 08/19/19 08:17 Platelet Satelliting Not Reportable 08/19/19 08:17 Plt Morphology Comment Not Reportable 08/19/19 08:17 RBC Morphology Not Reportable 08/19/19 08:17 Dimorphic RBCs Not Reportable 08/19/19 08:17 Polychromasia Not Reportable 08/19/19 08:17 Hypochromasia 1+ 08/19/19 08:17 Poikilocytosis Not Reportable 08/19/19 08:17 Anisocytosis Few 08/19/19 08:17 Microcytosis Not Reportable 08/19/19 08:17 Macrocytosis Not Reportable 08/19/19 08:17 Spherocytes Not Reportable 08/19/19 08:17 Pappenheimer Bodies Not Reportable 08/19/19 08:17 Sickle Cells Not Reportable 08/19/19 08:17 Target Cells Not Reportable 08/19/19 08:17 Tear Drop Cells Not Reportable 08/19/19 08:17 Ovalocytes Not Reportable 08/19/19 08:17 Stomatocytes Few 08/01/19 04:57 Helmet Cells Not Reportable 08/19/19 08:17 [place] Bodies Not Reportable 08/19/19 08:17 [place] Rings Not Reportable 08/19/19 08:17 [place] Cells Not Reportable 08/19/19 08:17 Bite Cells Not Reportable 08/19/19 08:17 Crenated Cell Not Reportable 08/19/19 08:17 Elliptocytes Not Reportable 08/19/19 08:17 Acanthocytes (Spur) Not Reportable 08/19/19 08:17 Rouleaux Not Reportable 08/19/19 08:17 Hemoglobin C Crystals Not Reportable 08/19/19 08:17 Schistocytes Not Reportable 08/19/19 08:17 Malaria parasites Not Reportable 08/19/19 08:17 Jeevan Bodies Not Reportable 08/19/19 08:17 Hem Pathologist Commnt No 08/19/19 08:17 PT 16.0 Sec. (12.2-14.9) H 07/03/19 22:20 INR 1.26 (0.87-1.13) H 07/03/19 22:20 D-Dimer 1808.06 ng/mlDDU (0-234) H 08/07/19 10:24 ABG pH 7.405 pH Units (7.350-7.450) 08/17/19 20:20 ABG pCO2 45.3 mm Hg 08/17/19 20:20 ABG pO2 84.2 mm Hg (80.0-90.0) 08/17/19 20:20 ABG HCO3 27.8 mmol/L (20.0-26.0) H 08/17/19 20:20 ABG O2 Saturation 96.9 % (95.0-99.0) 08/17/19 20:20 ABG O2 Content 15.2 (0.0-44) 08/17/19 20:20 ABG Base Excess 2.6 mmol/L (-2.0-3.0) 08/17/19 20:20 ABG Hemoglobin 11.4 gm/dl (14.0-18.0) L 08/17/19 20:20 ABG Carboxyhemoglobin 1.9 % (0.0-5.0) 08/17/19 20:20 ABG Methemoglobin 0.5 % (0.0-1.5) 08/17/19 20:20 Oxyhemoglobin 94.6 % (95.0-99.0) L 08/17/19 20:20 FiO2 28 % 08/17/19 20:20 Sodium 134 mmol/L (137-145) L 08/20/19 Unknown Potassium 4.1 mmol/L (3.6-5.0) 08/20/19 Unknown Chloride 97.9 mmol/L (98-107) L 08/20/19 Unknown Carbon Dioxide 27 mmol/L (22-30) 08/20/19 Unknown Anion Gap 13 mmol/L 08/20/19 Unknown BUN 12 mg/dL (9-20) 08/20/19 Unknown Creatinine 0.3 mg/dL (0.8-1.5) L 08/20/19 Unknown Estimated GFR > 60 ml/min 08/20/19 Unknown BUN/Creatinine Ratio 40 % 08/20/19 Unknown Glucose 115 mg/dL (75-100) H 08/20/19 Unknown POC Glucose 91 (70-105) 08/20/19 11:54 Osmolality 268 Mosm/kg 07/05/19 04:00 Lactic Acid 1.70 mmol/L (0.7-2.0) 08/18/19 13:00 Uric Acid 7.2 mg/dL (3.5-7.6) 07/05/19 04:00 Calcium 8.2 mg/dL (8.4-10.2) L 08/20/19 Unknown Phosphorus 3.60 mg/dL (2.5-4.5) 07/05/19 04:00 Magnesium 1.50 mg/dL (1.7-2.3) L 08/15/19 06:10 Iron 9 ug/dL (49-181) L 07/04/19 07:05 TIBC 97 mcg/dL (250-450) L 07/04/19 07:05 Ferritin 360.4 ng/mL (13.0-400.0) 08/07/19 10:24 Total Bilirubin 0.20 mg/dL (0.1-1.2) 08/16/19 05:00 AST 20 units/L (5-40) 08/16/19 05:00 ALT 8 units/L (7-56) 08/16/19 05:00 Alkaline Phosphatase 77 units/L (35-129) 08/16/19 05:00 Ammonia 35.0 umol/L (25-60) 07/03/19 23:58 Lactate Dehydrogenase 144 units/L (91-180) 08/07/19 10:24 Troponin T 0.013 ng/mL (0.00-0.029) 07/04/19 07:05 C-Reactive Protein 2.70 mg/dL (0.00-1.30) H 08/16/19 05:00 Total Protein 7.0 g/dL (6.3-8.2) 08/16/19 05:00 Albumin 2.1 g/dL (3.9-5) L 08/16/19 05:00 Albumin/Globulin Ratio 0.4 % 08/16/19 05:00 Prealbumin 0.037 g/L (0.200-0.400) L 07/31/19 04:42 Triglycerides 33 mg/dL (2-149) 07/03/19 19:57 Cholesterol 47 mg/dL (50-199) L 07/03/19 19:57 LDL Cholesterol Direct 25 mg/dL (50-130) L 07/03/19 19:57 HDL Cholesterol 20 mg/dL (40-59) L 07/03/19 19:57 Cholesterol/HDL Ratio 2.35 % 07/03/19 19:57 Procalcitonin < 0.05 ng/mL (<0.15) 08/16/19 14:35 TSH 2.170 mlU/mL (0.270-4.200) 07/03/19 22:20 Total Cortisol 28.0 mcg/dL () 07/05/19 10:11 Urine Color Yellow (Yellow) 07/29/19 11:57 Urine Turbidity Clear (Clear) 07/29/19 11:57 Urine pH 7.0 (5.0-7.0) 07/29/19 11:57 Ur Specific [place] 1.012 (1.003-1.030) 07/29/19 11:57 Urine Protein <15 mg/dl mg/dL (Negative) 07/29/19 11:57 Urine Glucose (UA) Neg mg/dL (Negative) 07/29/19 11:57 Urine Ketones Neg mg/dL (Negative) 07/29/19 11:57 Urine Blood Sm (Negative) 07/29/19 11:57 Urine Nitrite Neg (Negative) 07/29/19 11:57 Urine Bilirubin Neg (Negative) 07/29/19 11:57 Urine Urobilinogen 4.0 mg/dL (<2.0) 07/29/19 11:57 Ur Leukocyte Esterase Mod (Negative) 07/29/19 11:57 Urine WBC (Auto) 63.0 /HPF (0.0-6.0) H 07/29/19 11:57 Urine RBC (Auto) 14.0 /HPF (0.0-6.0) 07/29/19 11:57 U Epithel Cells (Auto) < 1.0 /HPF (0-13.0) 07/29/19 11:57 Urine Bacteria (Auto) 1+ /HPF (Negative) 07/29/19 11:57 Urine WBC Clumps Few /HPF 07/03/19 21:13 Urine Mucus Few /HPF 07/03/19 21:13 Urine Osmolality 293 Mosm/kg 07/05/19 08:15 Vancomycin Trough 23.2 ug/mL (5.0-20.0) H 07/05/19 17:54 Urine Opiates Screen Presumptive negative 07/03/19 21:13 Urine Methadone Screen Presumptive negative 07/03/19 21:13 Ur Barbiturates Screen Presumptive negative 07/03/19 21:13 Ur Phencyclidine Scrn Presumptive negative 07/03/19 21:13 Ur Amphetamines Screen Presumptive negative 07/03/19 21:13 U Benzodiazepines Scrn Presumptive negative 07/03/19 21:13 Urine Cocaine Screen Presumptive negative 07/03/19 21:13 U Marijuana (THC) Screen Presumptive negative 07/03/19 21:13 Drugs of Abuse Note Disclamer 07/03/19 21:13 Plasma/Serum Alcohol < 0.01 % (0-0.07) 07/03/19 23:58 Coronavirus (PCR) Positive (Negative) A 08/10/19 Unknown Hepatitis A IgM Ab Non-reactive (NonReactive) 08/07/19 10:24 Hep Bs Antigen Non-reactive (Negative) 08/07/19 10:24 Hep B Core IgM Ab Non-reactive (NonReactive) 08/07/19 10:24 Hepatitis C Antibody Non-reactive (NonReactive) 08/07/19 10:24 Blood Type B POSITIVE 08/09/19 17:59 Antibody Screen Negative 08/09/19 17:59 Crossmatch See Detail 08/09/19 17:59 Microbiology: Microbiology 08/16/19 14:35 Peripheral/Venous Blood Culture - Preliminary NO GROWTH AFTER 72 HOURS 08/16/19 14:35 Peripheral/Venous Blood Culture - Preliminary NO GROWTH AFTER 72 HOURS Wright/IV: Voiding Method Indwelling Catheter IV Catheter Type [Left Triple Lumen Cath Internal Jugular] IV Catheter Type [Left INT / Saline Lock Antecubital] IV Catheter Type [Left Forearm Peripheral IV ] IV Catheter Type [Left Upper Mid-line arm] IV Catheter Type [Right INT / Saline Lock Forearm] IV Catheter Type [Right Hand] INT / Saline Lock IV Catheter Type [Right CVL Femoral] IV Catheter Type [Left INT / Saline Lock External Jugular] Active Medications - Current Medications Current Medications: Generic Name Dose Route Start Last Admin Trade Name Freq PRN Reason Stop Dose Admin Acetaminophen 650 mg 07/04/19 04:24 08/05/19 17:40 Tylenol IN 650 mg Q6H PRN Administration Pain MILD(1-3)/Fever >100.5/MURO Acetaminophen 650 mg 07/10/19 04:00 08/19/19 22:03 Tylenol PO 650 mg Q6HR PRN Administration Pain, Mild (1-3) FEVER Lipase/Protease/Amylase 1 each 07/04/19 10:04 08/11/19 06:03 Pancreaze 10,500 Unit FEEDTUBE 1 each PRN PRN Administration For Clogged Feeding Tube Aspirin 81 mg 07/05/19 10:00 08/20/19 09:29 Baby Aspirin PO 81 mg QDAY TAMMIE Administration Dextrose 50 ml 07/04/19 06:54 D50w (25gm) Syringe IV Q30MIN PRN Hypoglycemia Protocol Docusate Sodium 100 mg 08/14/19 14:00 Colace PO BID PRN CONSTIPATION Enoxaparin Sodium 40 mg 07/24/19 10:00 08/20/19 09:28 Enoxaparin SUB-Q 40 mg QDAY@1000 TAMMIE Administration Famotidine 20 mg 07/23/19 22:00 08/20/19 09:28 Pepcid PO 20 mg BID TAMMIE Administration Fentanyl 50 mcg 07/21/19 15:18 08/19/19 14:50 Sublimaze IV 50 mcg Q10MIN PRN Administration ANALGESIA Fentanyl 25 mcg 08/03/19 11:00 08/18/19 10:59 Duragesic TD 25 mcg Q3D TAMMIE Administration Folic Acid 1 mg 07/05/19 10:00 08/20/19 09:29 Folvite PO 1 mg QDAY TAMMIE Administration Glycopyrrolate 1 mg 08/16/19 14:00 08/20/19 13:14 Robinul PO 1 mg TID TAMMIE Administration Hydrophilic Ointment 1 applic 07/03/19 19:56 07/05/19 17:42 Vaseline Lip Therapy TP 1 applic Q2HR PRN Administration Dry Lips Norepinephrine 4 mg in 250 mls @ 7.5 mls/hr 07/03/19 23:00 07/20/19 01:00 Levophed Drip 4 Mg/Ns 250 Ml IV Infused TITR TAMMIE Titration Protocol 2 MCG/MIN Levofloxacin/Dextrose 750 mg in 150 mls @ 100 mls/hr 08/19/19 12:00 08/20/19 09:29 Levaquin 750mg/150ml IV 100 mls/hr Q24HR TAMMIE Administration Protocol Insulin Human Lispro 0 unit 07/07/19 12:00 08/20/19 13:14 Humalog SUB-Q Not Given Q6HR TAMMIE Protocol Levetiracetam 750 mg 07/06/19 11:00 08/20/19 09:28 Keppra FEEDTUBE 750 mg Q12HR TAMMIE Administration Metoprolol Tartrate 5 mg 07/12/19 15:08 08/19/19 15:45 Metoprolol IV 5 mg Q6HR PRN Administration Tachyarrhythmias Multi-Ingred Cream/Lotion/Oil/Oint 1 applic 07/03/19 19:56 07/05/19 13:19 Artificial Tears Ophth Oint OU 1 applic Q4HR PRN Administration Dry Eye(s) Naloxone HCl 0.1 mg 07/04/19 04:24 Naloxone IV Q2MIN PRN Res Rate </= 8 or 02 SAT < 92% Oxycodone/Acetaminophen 1 tab 07/19/19 14:17 08/19/19 13:37 Percocet 5/325 PO 1 tab Q4H PRN Administration Pain, Moderate (4-6) Scopolamine 1 each 07/10/19 11:00 08/18/19 10:58 Transderm-Scop TD 1 each Q3D TAMMIE Administration Simple Syrup 15 ml 07/04/19 10:04 07/10/19 21:56 Simple Syrup FEEDTUBE 15 ml PRN PRN Administration Hypoglycemia Simple Syrup 30 ml 07/04/19 10:04 Simple Syrup FEEDTUBE PRN PRN Hypoglycemia Sodium Bicarbonate 325 mg 07/04/19 10:04 07/20/19 10:20 Sodium Bicarbonate FEEDTUBE 325 mg PRN PRN Administration For Clogged Feeding Tube Sodium Chloride 10 ml 07/04/19 10:00 08/20/19 09:30 Sodium Chloride Flush Syringe 10 Ml IV 10 ml BID TAMMIE Administration Sodium Chloride 10 ml 07/04/19 04:24 Sodium Chloride Flush Syringe 10 Ml IV PRN PRN LINE FLUSH Sodium Hypochlorite 1 applic 07/10/19 14:00 08/20/19 13:14 Dakin's Half Strength TP 1 appful BID TAMMIE Administration Nutrition/Malnutrition Assess - Dietary Evaluation Nutrition/Malnutrition Findings: Nutrition Notes Start: 07/04/19 09:17 Freq: Status: Active Protocol: Document 08/15/19 08:14 LP (Rec: 08/15/19 08:16 LP [id number]) Nutrition Notes Initial or Follow up Reassessment Current Diagnosis Acute Kidney Injury,COPD, Decubitus(Pressure Ulcer), Diabetes,Hypertension Other Pertinent Diagnosis COVID-19 (+), pneu, seizures, schizophrenia, Buttock and R foot PU, Current Diet Osmolite 1.5 at 55ml/hr Labs/Tests Reviewed Pertinent Medications Reviewed Height 5 ft 11 in Weight 78.7 kg [place] Body Weight (kg) 78.18 BMI 24.2 Weight Status Overweight Subjective/Other Information Pt continues tolerating TF at goal rate. Percent of energy/protein needs met: 97%/75% Burn Absent Trauma Absent Current % PO Negligible Minimum of two criteria No physical signs of malnutrition #2 Nutrition Diagnosis Increased nutrient needs ( specify in comment below) Diagnosis Progress(for reassessment Continues documentation) #1 Nutrition Diagnosis Inadequate oral intake Diagnosis Progress(for reassessment Continues documentation) Is patient on ventilator? Yes Is Patient Ambulatory and/or Out of Bed No REE-([facility]-confined to bed) [phone] Calculation Used for Recommendations [facility] Additional Notes Protein: 110-184 (1.2-2g/kg) Fluid: 1 ml/kcal or per MD Nutrition Intervention Change Diet Order: Continue TF Nutrition Support: Osmolite 1.5 at 55ml/hr Flush 150ml q4h Kcal 1,980 Protein (gm) 83 Fluid (mL) 1,006 Goal #1 TF tolerance Goal #2 TF to meet at least 75% of energy and protein needs Anticipated Discharge Needs: unable to determine at this time Follow-Up By: 08/22/19 Additional Comments Follow for stable TF
[2019-08-20] MEDS: oxyCODONE /ACETAMINOPHEN 5-325MG TAB PO PRN (15:51)
[2019-08-20] MEDS: ACETAMINOPHEN 325 MG/10.15 ML ORAL LIQD UNIT DOSE PO PRN (15:51)
[2019-08-21] MEDS: INSULIN LISPRO 100 UNIT/ML SUB-Q SCH ×4 (00:27→18:31)
[2019-08-21] MEDS: ENOXAPARIN 40 MG/0.4 ML INJ SUB-Q SCH (09:14)
[2019-08-21] MEDS: levETIRAcetam 500 MG/5 ML ORAL LIQD FEEDTUBE SCH ×2 (09:14→21:28)
[2019-08-21] MEDS: FAMOTIDINE 20 MG TAB PO SCH ×2 (09:14→21:28)
[2019-08-21] MEDS: GLYCOPYRROLATE 1 MG TAB PO SCH ×3 (09:14→21:28)
[2019-08-21] MEDS: ASPIRIN 81 MG TAB CHEW PO SCH (09:15)
[2019-08-21] MEDS: FOLIC ACID 1 MG TAB PO SCH (09:15)
[2019-08-21] MEDS: SODIUM HYPOCHLORITE, DAKIN'S 1/2 STRENGTH (0.25%) 473 ML TOPICAL SOLN TP SCH ×2 (10:22→21:29)
[2019-08-21] MEDS: SCOPOLAMINE TRANSDERMAL PATCH 72 HR TD SCH (10:22)
[2019-08-21] MEDS: fentaNYL 25 MCG/HR PATCH 72HR TD SCH (10:22)
--- NOTE | 2019-08-21 11:34 | Progress Note ---
Assessment and Plan S/p Cardiopulmonary arrest with ROSC Severe Sepsis with septic shock. Acute hypoxemic respiratory failure on MVS COVID-19 positive with elevated markers Bilateral pneumonia Elevated LFTs. Oropharyngeal dysphagia s/p PEG Acute kidney injury Decubitus ulcers-unstageable Moderate protein calorie malnutriton [id number] metabolic acidosis Leukocytosis Thrombocytosis-worse Microcytic anemia Continue with PSV as tolerated, full support at night Will continue to assess on a daily basis suitability for liberation from MVS while awaiting COVID negative testing. Repeat COVID testing remains positive ( 08/09/2019). Samples collected for repeat testing this monirng Repeat testing once negative reconsult surgery for trach and PEG placement Continue with NGT feeding with aspiration precautions Complete course of antibiotics per ID- currently on Levofloxacin Supportive transfusions to keep HgB >7g/dL Continue all care as documented -Continue to coordinate sedation interruption( RN) and SBT( RT) today to optimize chances of success with weaning trial -ABG, CXR prn - continue airborne, droplet and contact isolation for COVID-19 - continue wound care per WCT - sedation prn for target RASS 0 to -1 - continue to wean supplemental oxygen for target O2 sat's > 90% - Daily SAT's and SBT assessment as tolerated - VAP bundle addressed - continue lung protective strategies - continue bronchodilators with pulmonary hygiene per RT - wean per pulmonary driven protocols otherwise - accuchecks with glycemic control per SSI (While critically ill target blood glucose of 140-180 mg/dL; avoid hypoglycemia) - continue to avoid benzodiazepines, reduce the possibility of delirium - prn analgesia per CPOT score - Maintenance of sleep-wake cycle, avoid delirium - continue enteral nutritional support at goal rate as tolerated - VTE prophylaxis-Enoxaparin -Stress ulcer prophylaxis- Famotidine - PT/OT/ROM exercises - continue mobility protocol, off loading and skin assessment for pressure u lcer prevention - Monitor hemodynamics closely -Wright catheter in this critically ill patient with unstageable sacral decubitus ulcer - continue other care per attending / other consultants - discharge planning ongoing concurrently .... Re-evaluate in am & prn CONDITION: CRITICAL PROGNOSIS: GUARDED CODE STATUS: DNAR Called his family to discuss goals of care, wants us to continue to treat aggressively at this time. The high probability of a clinically significant, sudden or life-threatening deterioration of the [respiratory ,cardiovascular, neurology] system(s) required my full and direct attention, intervention and personal management. The aggregate critical care time was [31] minutes without overlap. Time includes spent on; [x] Data Review and interpretation [x] Patient assessment and monitoring of vital signs [x] Documentation [x] Medication orders and management Subjective Date of service: 08/21/19 Principal diagnosis: Bilateral pneumonia, severe sepsis with septic shock, encephalopathy Interval history: The patient is a 69-year-old male with CVA, hypertension, dementia, schizophren ia, alcohol use disorder was admitted to the emergency room after being brought in by EMS with progressive shortness of breath and unresponsiveness. He was noted to have agonal breathing and a faint pulse requiring CPR. Patient was intubated and brought to the hospital. It seems, patient was on home hospice. Currently, remains critically ill, intubated, on mechanical ventilation. His COVID test resulted positive. Patient is seen today for: s/p cardiopulmonary arrest with ROSC; Ac hypoxemic Resp failure on MVS; Severe sepsis with Shock; Bilateral Pneumonia; POSITIVE coronavirus-19 infection. Seen and examined at bedside; 24hour events reviewed; nursing and respiratory care staff consulted; no adverse overnight events reported to me; resting in bed.No fevers; Remains COVID positive, sample fro repeat test collected this morning On MVS , tolerating daily PSV trials at this time; on fentanyl at 1mcg, off norepinephrine Tolerating tube feedings, Mental status changes persist, will spontaneously open eyes Episodes of coughing associated with intermittent desaturations overnight Objective Vital Signs - 12hr 08/20/19 08/21/19 08/21/19 23:41 00:00 01:00 Temperature 98.8 F Pulse Rate 89 93 H Pulse Rate [ 85 From Monitor] Pulse Rate [ 85 Left Dorsalis Pedis] Pulse Rate [ 85 Left Radial] Pulse Rate [ 85 Right Dorsalis Pedis] Pulse Rate [ 85 Right Radial] Respiratory 17 15 Rate Respiratory Rate [Back] Blood Pressure 130/71 147/76 O2 Sat by Pulse 100 100 Oximetry 08/21/19 08/21/19 08/21/19 01:28 02:00 03:00 Temperature Pulse Rate 90 87 Pulse Rate [ From Monitor] Pulse Rate [ Left Dorsalis Pedis] Pulse Rate [ Left Radial] Pulse Rate [ Right Dorsalis Pedis] Pulse Rate [ Right Radial] Respiratory 17 17 Rate Respiratory Rate [Back] Blood Pressure 145/77 145/90 138/84 O2 Sat by Pulse 100 100 99 Oximetry 08/21/19 08/21/19 08/21/19 03:37 04:00 04:47 Temperature 99.4 F Pulse Rate 129 H 95 H Pulse Rate [ 99 H From Monitor] Pulse Rate [ 99 H Left Dorsalis Pedis] Pulse Rate [ 99 H Left Radial] Pulse Rate [ 99 H Right Dorsalis Pedis] Pulse Rate [ 99 H Right Radial] Respiratory 21 Rate Respiratory Rate [Back] Blood Pressure 159/88 O2 Sat by Pulse 99 99 Oximetry 08/21/19 08/21/19 08/21/19 05:00 06:00 07:00 Temperature Pulse Rate 113 H 115 H 117 H Pulse Rate [ From Monitor] Pulse Rate [ Left Dorsalis Pedis] Pulse Rate [ Left Radial] Pulse Rate [ Right Dorsalis Pedis] Pulse Rate [ Right Radial] Respiratory 19 15 19 Rate Respiratory Rate [Back] Blood Pressure 158/97 133/72 152/84 O2 Sat by Pulse 99 93 100 Oximetry 08/21/19 08/21/19 08/21/19 08:00 08:22 09:00 Temperature 98.5 F Pulse Rate 119 H 125 H 116 H Pulse Rate [ 116 H From Monitor] Pulse Rate [ 116 H Left Dorsalis Pedis] Pulse Rate [ 116 H Left Radial] Pulse Rate [ 116 H Right Dorsalis Pedis] Pulse Rate [ 116 H Right Radial] Respiratory 17 21 Rate Respiratory Rate [Back] Blood Pressure 146/93 154/89 161/90 O2 Sat by Pulse 99 99 100 Oximetry 08/21/19 08/21/19 08/21/19 10:00 10:22 11:00 Temperature Pulse Rate 122 H 112 H Pulse Rate [ From Monitor] Pulse Rate [ Left Dorsalis Pedis] Pulse Rate [ Left Radial] Pulse Rate [ Right Dorsalis Pedis] Pulse Rate [ Right Radial] Respiratory 27 H 19 21 Rate Respiratory 17 Rate [Back] Blood Pressure 169/97 143/76 O2 Sat by Pulse 98 100 Oximetry Constitutional: appears uncomfortable, other (eelderly and chronically ill looking AAM, normocep[krystina;ic with mildly increased respiratory effort at rest) Eyes: non-icteric ENT: oropharynx moist, other (ETT 24 cm Pawan) Neck: supple, no lymphadenopathy, no JVD Effort: very labored Ascultation: Bilateral: diminished breath sounds, rhonchi Percussion: Bilateral: not dull Cardiovascular: regular rate and rhythm Gastrointestinal: normoactive bowel sounds, soft, non-tender, non-distended, other (+ PEG tube with mild TF leakage) Integumentary: decubitus ulcer (sacral) Extremities: no cyanosis, no edema, pink and warm, pulses normal Neurologic: pupils equal and round, unable to assess Psychiatric: other (Unable to assess re: AMS) CBC and BMP: 08/20/19 Unknown 08/20/19 Unknown ABG, PT/INR, D-dimer: ABG ABG pH 7.405 pH Units (7.350-7.450) 08/17/19 20:20 ABG pCO2 45.3 mm Hg 08/17/19 20:20 ABG pO2 84.2 mm Hg (80.0-90.0) 08/17/19 20:20 ABG O2 Saturation 96.9 % (95.0-99.0) 08/17/19 20:20 PT/INR, D-dimer PT 16.0 Sec. (12.2-14.9) H 07/03/19 22:20 INR 1.26 (0.87-1.13) H 07/03/19 22:20 D-Dimer 1808.06 ng/mlDDU (0-234) H 08/07/19 10:24 Abnormal lab findings: Abnormal Labs 07/03/19 07/03/19 07/03/19 19:57 21:10 21:13 WBC RBC Hgb Hct MCV MCH MCHC RDW Plt Count Lymph % (Auto) [place] % (Auto) Lymph # [place] # Baso # Seg Neutrophils % Seg Neuts % (Manual) Lymphocytes % (Manual) Monocytes % (Manual) Basophils % (Manual) Nucleated RBC % Seg Neutrophils # Seg Neutrophils # Man Lymphocytes # (Manual) Monocytes # (Manual) Eosinophils # (Manual) Basophils # (Manual) PT INR D-Dimer ABG pH 7.238 L ABG pO2 210.8 H ABG HCO3 15.4 L ABG O2 Saturation 99.2 H ABG Base Excess -11.1 L ABG Hemoglobin 8.0 L Oxyhemoglobin Sodium 124 L Potassium Chloride 92.9 L Carbon Dioxide 10 L BUN 23 H Creatinine 0.5 L Glucose 118 H POC Glucose Lactic Acid Calcium 7.0 L Magnesium Iron TIBC Ferritin AST 70 H ALT 88 H Lactate Dehydrogenase Troponin T 0.032 H C-Reactive Protein Total Protein 5.0 L Albumin 1.8 L Prealbumin Cholesterol 47 L LDL Cholesterol Direct 25 L HDL Cholesterol 20 L Urine WBC (Auto) 12.0 H Vancomycin Trough Coronavirus (PCR) Crossmatch 07/03/19 07/03/19 07/03/19 22:20 22:20 22:20 WBC 30.5 H RBC 2.96 L Hgb 7.7 L Hct 23.9 L MCV 81 L MCH 26 L MCHC RDW 18.6 H Plt Count 459 H Lymph % (Auto) [place] % (Auto) Lymph # [place] # Baso # Seg Neutrophils % Seg Neuts % (Manual) 93.0 H Lymphocytes % (Manual) 0.5 L Monocytes % (Manual) Basophils % (Manual) Nucleated RBC % Seg Neutrophils # Seg Neutrophils # Man 28.4 H Lymphocytes # (Manual) 0.2 L Monocytes # (Manual) Eosinophils # (Manual) Basophils # (Manual) PT 16.0 H INR 1.26 H D-Dimer ABG pH ABG pO2 ABG HCO3 ABG O2 Saturation ABG Base Excess ABG Hemoglobin Oxyhemoglobin Sodium Potassium Chloride Carbon Dioxide BUN Creatinine Glucose POC Glucose Lactic Acid 6.90 H* Calcium Magnesium Iron TIBC Ferritin AST ALT Lactate Dehydrogenase Troponin T C-Reactive Protein Total Protein Albumin Prealbumin Cholesterol LDL Cholesterol Direct HDL Cholesterol Urine WBC (Auto) Vancomycin Trough Coronavirus (PCR) Crossmatch 07/03/19 07/04/19 07/04/19 23:58 05:15 07:05 WBC 17.1 H RBC 3.22 L Hgb 8.3 L Hct 25.4 L MCV 79 L MCH 26 L MCHC RDW 18.6 H Plt Count Lymph % (Auto) [place] % (Auto) Lymph # [place] # Baso # Seg Neutrophils % Seg Neuts % (Manual) 74.0 H Lymphocytes % (Manual) 0 L Monocytes % (Manual) Basophils % (Manual) Nucleated RBC % Seg Neutrophils # Seg Neutrophils # Man 12.7 H Lymphocytes # (Manual) 0.0 L Monocytes # (Manual) Eosinophils # (Manual) Basophils # (Manual) PT INR D-Dimer ABG pH 7.310 L ABG pO2 73.2 L ABG HCO3 17.8 L ABG O2 Saturation 93.8 L ABG Base Excess -7.7 L ABG Hemoglobin 9.6 L Oxyhemoglobin 92.3 L Sodium Potassium Chloride Carbon Dioxide BUN Creatinine Glucose POC Glucose Lactic Acid 7.10 H* Calcium Magnesium Iron TIBC Ferritin AST ALT Lactate Dehydrogenase Troponin T C-Reactive Protein Total Protein Albumin Prealbumin Cholesterol LDL Cholesterol Direct HDL Cholesterol Urine WBC (Auto) Vancomycin Trough Coronavirus (PCR) Crossmatch 07/04/19 07/04/19 07/04/19 07:05 07:05 07:05 WBC RBC Hgb Hct MCV MCH MCHC RDW Plt Count Lymph % (Auto) [place] % (Auto) Lymph # [place] # Baso # Seg Neutrophils % Seg Neuts % (Manual) Lymphocytes % (Manual) Monocytes % (Manual) Basophils % (Manual) Nucleated RBC % Seg Neutrophils # Seg Neutrophils # Man Lymphocytes # (Manual) Monocytes # (Manual) Eosinophils # (Manual) Basophils # (Manual) PT INR D-Dimer ABG pH ABG pO2 ABG HCO3 ABG O2 Saturation ABG Base Excess ABG Hemoglobin Oxyhemoglobin Sodium 120 L Potassium 5.1 H Chloride 90.0 L Carbon Dioxide 14 L BUN 26 H Creatinine 0.5 L Glucose POC Glucose Lactic Acid 3.30 H* Calcium 8.0 L Magnesium Iron 9 L TIBC 97 L Ferritin AST 73 H ALT 91 H Lactate Dehydrogenase Troponin T C-Reactive Protein Total Protein 5.5 L Albumin 2.0 L Prealbumin Cholesterol LDL Cholesterol Direct HDL Cholesterol Urine WBC (Auto) Vancomycin Trough Coronavirus (PCR) Crossmatch 07/04/19 07/04/19 07/04/19 09:39 09:39 09:39 WBC RBC Hgb Hct MCV MCH MCHC RDW Plt Count Lymph % (Auto) [place] % (Auto) Lymph # [place] # Baso # Seg Neutrophils % Seg Neuts % (Manual) Lymphocytes % (Manual) Monocytes % (Manual) Basophils % (Manual) Nucleated RBC % Seg Neutrophils # Seg Neutrophils # Man Lymphocytes # (Manual) Monocytes # (Manual) Eosinophils # (Manual) Basophils # (Manual) PT INR D-Dimer 1419.14 H ABG pH ABG pO2 ABG HCO3 ABG O2 Saturation ABG Base Excess ABG Hemoglobin Oxyhemoglobin Sodium Potassium Chloride Carbon Dioxide BUN Creatinine Glucose POC Glucose Lactic Acid Calcium Magnesium Iron TIBC Ferritin 1719.0 H AST ALT Lactate Dehydrogenase 234 H Troponin T C-Reactive Protein 15.50 H Total Protein Albumin Prealbumin Cholesterol LDL Cholesterol Direct HDL Cholesterol Urine WBC (Auto) Vancomycin Trough Coronavirus (PCR) Crossmatch 07/04/19 07/04/19 07/04/19 10:09 18:08 18:28 WBC RBC Hgb Hct MCV MCH MCHC RDW Plt Count Lymph % (Auto) [place] % (Auto) Lymph # [place] # Baso # Seg Neutrophils % Seg Neuts % (Manual) Lymphocytes % (Manual) Monocytes % (Manual) Basophils % (Manual) Nucleated RBC % Seg Neutrophils # Seg Neutrophils # Man Lymphocytes # (Manual) Monocytes # (Manual) Eosinophils # (Manual) Basophils # (Manual) PT INR D-Dimer ABG pH ABG pO2 ABG HCO3 ABG O2 Saturation ABG Base Excess ABG Hemoglobin Oxyhemoglobin Sodium 117 L* Potassium 5.6 H Chloride 90.3 L Carbon Dioxide 16 L BUN 28 H Creatinine 0.5 L Glucose 58 L POC Glucose 65 L Lactic Acid Calcium 8.2 L Magnesium Iron TIBC Ferritin AST ALT Lactate Dehydrogenase Troponin T C-Reactive Protein Total Protein Albumin Prealbumin Cholesterol LDL Cholesterol Direct HDL Cholesterol Urine WBC (Auto) Vancomycin Trough Coronavirus (PCR) Positive A Crossmatch 07/04/19 07/04/19 07/04/19 23:45 Unknown Unknown WBC RBC Hgb Hct MCV MCH MCHC RDW Plt Count Lymph % (Auto) [place] % (Auto) Lymph # [place] # Baso # Seg Neutrophils % Seg Neuts % (Manual) Lymphocytes % (Manual) Monocytes % (Manual) Basophils % (Manual) Nucleated RBC % Seg Neutrophils # Seg Neutrophils # Man Lymphocytes # (Manual) Monocytes # (Manual) Eosinophils # (Manual) Basophils # (Manual) PT INR D-Dimer 759.77 H ABG pH ABG pO2 ABG HCO3 ABG O2 Saturation ABG Base Excess ABG Hemoglobin Oxyhemoglobin Sodium 122 L Potassium Chloride 93.0 L Carbon Dioxide 19 L BUN 27 H Creatinine 0.5 L Glucose POC Glucose Lactic Acid Calcium 8.3 L Magnesium Iron TIBC Ferritin 1301.0 H AST ALT Lactate Dehydrogenase Troponin T C-Reactive Protein Total Protein Albumin Prealbumin Cholesterol LDL Cholesterol Direct HDL Cholesterol Urine WBC (Auto) Vancomycin Trough Coronavirus (PCR) Crossmatch 07/04/19 07/05/19 07/05/19 Unknown 03:20 04:00 WBC RBC Hgb Hct MCV MCH MCHC RDW Plt Count Lymph % (Auto) [place] % (Auto) Lymph # [place] # Baso # Seg Neutrophils % Seg Neuts % (Manual) Lymphocytes % (Manual) Monocytes % (Manual) Basophils % (Manual) Nucleated RBC % Seg Neutrophils # Seg Neutrophils # Man Lymphocytes # (Manual) Monocytes # (Manual) Eosinophils # (Manual) Basophils # (Manual) PT INR D-Dimer ABG pH ABG pO2 60.6 L ABG HCO3 ABG O2 Saturation 93.5 L ABG Base Excess -2.4 L ABG Hemoglobin 6.9 L Oxyhemoglobin 92.0 L Sodium 125 L Potassium Chloride 92.6 L Carbon Dioxide 19 L BUN 24 H Creatinine 0.6 L Glucose POC Glucose Lactic Acid Calcium 8.2 L Magnesium 1.40 L Iron TIBC Ferritin AST ALT Lactate Dehydrogenase 242 H Troponin T C-Reactive Protein 16.70 H Total Protein Albumin Prealbumin Cholesterol LDL Cholesterol Direct HDL Cholesterol Urine WBC (Auto) Vancomycin Trough Coronavirus (PCR) Crossmatch 07/05/19 07/05/19 07/05/19 10:11 16:15 17:54 WBC 46.4 H* RBC 2.77 L Hgb 7.2 L Hct 21.9 L MCV 79 L MCH 26 L MCHC RDW 19.0 H Plt Count Lymph % (Auto) [place] % (Auto) Lymph # [place] # Baso # Seg Neutrophils % Seg Neuts % (Manual) 82.0 H Lymphocytes % (Manual) 1.0 L Monocytes % (Manual) Basophils % (Manual) Nucleated RBC % Seg Neutrophils # Seg Neutrophils # Man 38.0 H Lymphocytes # (Manual) 0.5 L Monocytes # (Manual) Eosinophils # (Manual) Basophils # (Manual) PT INR D-Dimer ABG pH ABG pO2 ABG HCO3 ABG O2 Saturation ABG Base Excess ABG Hemoglobin Oxyhemoglobin Sodium Potassium Chloride Carbon Dioxide BUN Creatinine Glucose POC Glucose 69 L Lactic Acid Calcium Magnesium Iron TIBC Ferritin AST ALT Lactate Dehydrogenase Troponin T C-Reactive Protein Total Protein Albumin Prealbumin Cholesterol LDL Cholesterol Direct HDL Cholesterol Urine WBC (Auto) Vancomycin Trough 23.2 H Coronavirus (PCR) Crossmatch 07/05/19 07/06/19 07/06/19 19:58 00:27 00:27 WBC RBC Hgb Hct MCV MCH MCHC RDW Plt Count Lymph % (Auto) [place] % (Auto) Lymph # [place] # Baso # Seg Neutrophils % Seg Neuts % (Manual) Lymphocytes % (Manual) Monocytes % (Manual) Basophils % (Manual) Nucleated RBC % Seg Neutrophils # Seg Neutrophils # Man Lymphocytes # (Manual) Monocytes # (Manual) Eosinophils # (Manual) Basophils # (Manual) PT INR D-Dimer 1333.22 H ABG pH ABG pO2 ABG HCO3 ABG O2 Saturation ABG Base Excess ABG Hemoglobin Oxyhemoglobin Sodium 127 L Potassium Chloride Carbon Dioxide BUN Creatinine Glucose POC Glucose Lactic Acid Calcium Magnesium Iron TIBC Ferritin 977.1 H AST ALT Lactate Dehydrogenase Troponin T C-Reactive Protein Total Protein Albumin Prealbumin Cholesterol LDL Cholesterol Direct HDL Cholesterol Urine WBC (Auto) Vancomycin Trough Coronavirus (PCR) Crossmatch 07/06/19 07/06/19 07/06/19 00:27 02:00 02:56 WBC RBC Hgb Hct MCV MCH MCHC RDW Plt Count Lymph % (Auto) [place] % (Auto) Lymph # [place] # Baso # Seg Neutrophils % Seg Neuts % (Manual) Lymphocytes % (Manual) Monocytes % (Manual) Basophils % (Manual) Nucleated RBC % Seg Neutrophils # Seg Neutrophils # Man Lymphocytes # (Manual) Monocytes # (Manual) Eosinophils # (Manual) Basophils # (Manual) PT INR D-Dimer ABG pH ABG pO2 70.3 L ABG HCO3 ABG O2 Saturation 94.8 L ABG Base Excess ABG Hemoglobin 8.0 L Oxyhemoglobin 93.2 L Sodium Potassium Chloride Carbon Dioxide BUN Creatinine Glucose POC Glucose 117 H Lactic Acid Calcium Magnesium Iron TIBC Ferritin AST ALT Lactate Dehydrogenase 236 H Troponin T C-Reactive Protein 22.90 H Total Protein Albumin Prealbumin Cholesterol LDL Cholesterol Direct HDL Cholesterol Urine WBC (Auto) Vancomycin Trough Coronavirus (PCR) Crossmatch 07/06/19 07/06/19 07/06/19 03:49 03:49 07:40 WBC 38.8 H RBC 2.51 L Hgb 6.7 L Hct 19.9 L* MCV 79 L MCH 27 L MCHC RDW 19.2 H Plt Count Lymph % (Auto) [place] % (Auto) Lymph # [place] # Baso # Seg Neutrophils % Seg Neuts % (Manual) 90.5 H Lymphocytes % (Manual) 1.0 L Monocytes % (Manual) Basophils % (Manual) Nucleated RBC % Seg Neutrophils # Seg Neutrophils # Man 35.1 H Lymphocytes # (Manual) 0.4 L Monocytes # (Manual) Eosinophils # (Manual) Basophils # (Manual) PT INR D-Dimer ABG pH ABG pO2 ABG HCO3 ABG O2 Saturation ABG Base Excess ABG Hemoglobin Oxyhemoglobin Sodium 131 L Potassium Chloride 96.9 L Carbon Dioxide 18 L BUN 23 H Creatinine 0.5 L Glucose POC Glucose Lactic Acid Calcium 8.0 L Magnesium Iron TIBC Ferritin AST ALT Lactate Dehydrogenase Troponin T C-Reactive Protein Total Protein Albumin Prealbumin Cholesterol LDL Cholesterol Direct HDL Cholesterol Urine WBC (Auto) Vancomycin Trough Coronavirus (PCR) Crossmatch See Detail 07/06/19 07/06/19 07/06/19 12:38 14:39 20:00 WBC RBC Hgb Hct MCV MCH MCHC RDW Plt Count Lymph % (Auto) [place] % (Auto) Lymph # [place] # Baso # Seg Neutrophils % Seg Neuts % (Manual) Lymphocytes % (Manual) Monocytes % (Manual) Basophils % (Manual) Nucleated RBC % Seg Neutrophils # Seg Neutrophils # Man Lymphocytes # (Manual) Monocytes # (Manual) Eosinophils # (Manual) Basophils # (Manual) PT INR D-Dimer ABG pH ABG pO2 ABG HCO3 ABG O2 Saturation ABG Base Excess ABG Hemoglobin Oxyhemoglobin Sodium Potassium Chloride Carbon Dioxide BUN Creatinine Glucose POC Glucose 112 H 111 H 140 H Lactic Acid Calcium Magnesium Iron TIBC Ferritin AST ALT Lactate Dehydrogenase Troponin T C-Reactive Protein Total Protein Albumin Prealbumin Cholesterol LDL Cholesterol Direct HDL Cholesterol Urine WBC (Auto) Vancomycin Trough Coronavirus (PCR) Crossmatch 07/06/19 07/06/19 07/07/19 22:43 22:56 02:20 WBC RBC Hgb 7.9 L Hct 23.1 L MCV MCH MCHC RDW Plt Count Lymph % (Auto) [place] % (Auto) Lymph # [place] # Baso # Seg Neutrophils % Seg Neuts % (Manual) Lymphocytes % (Manual) Monocytes % (Manual) Basophils % (Manual) Nucleated RBC % Seg Neutrophils # Seg Neutrophils # Man Lymphocytes # (Manual) Monocytes # (Manual) Eosinophils # (Manual) Basophils # (Manual) PT INR D-Dimer ABG pH ABG pO2 ABG HCO3 ABG O2 Saturation ABG Base Excess ABG Hemoglobin Oxyhemoglobin Sodium Potassium Chloride Carbon Dioxide BUN Creatinine Glucose POC Glucose 122 H 149 H Lactic Acid Calcium Magnesium Iron TIBC Ferritin AST ALT Lactate Dehydrogenase Troponin T C-Reactive Protein Total Protein Albumin Prealbumin Cholesterol LDL Cholesterol Direct HDL Cholesterol Urine WBC (Auto) Vancomycin Trough Coronavirus (PCR) Crossmatch 07/07/19 07/07/19 07/07/19 04:35 05:27 05:34 WBC 23.1 H RBC 3.00 L Hgb 8.1 L Hct 24.2 L MCV 81 L MCH 27 L MCHC RDW 20.6 H Plt Count Lymph % (Auto) [place] % (Auto) Lymph # [place] # Baso # Seg Neutrophils % Seg Neuts % (Manual) 90.0 H Lymphocytes % (Manual) 2.0 L Monocytes % (Manual) Basophils % (Manual) Nucleated RBC % Seg Neutrophils # Seg Neutrophils # Man 20.8 H Lymphocytes # (Manual) 0.5 L Monocytes # (Manual) Eosinophils # (Manual) Basophils # (Manual) PT INR D-Dimer ABG pH ABG pO2 65.8 L ABG HCO3 ABG O2 Saturation 92.2 L ABG Base Excess ABG Hemoglobin 8.3 L Oxyhemoglobin 90.6 L Sodium Potassium Chloride Carbon Dioxide BUN Creatinine Glucose POC Glucose 132 H Lactic Acid Calcium Magnesium Iron TIBC Ferritin AST ALT Lactate Dehydrogenase Troponin T C-Reactive Protein Total Protein Albumin Prealbumin Cholesterol LDL Cholesterol Direct HDL Cholesterol Urine WBC (Auto) Vancomycin Trough Coronavirus (PCR) Crossmatch 07/07/19 07/07/19 07/07/19 05:34 11:50 15:58 WBC RBC Hgb 8.1 L Hct 24.2 L MCV MCH MCHC RDW Plt Count Lymph % (Auto) [place] % (Auto) Lymph # [place] # Baso # Seg Neutrophils % Seg Neuts % (Manual) Lymphocytes % (Manual) Monocytes % (Manual) Basophils % (Manual) Nucleated RBC % Seg Neutrophils # Seg Neutrophils # Man Lymphocytes # (Manual) Monocytes # (Manual) Eosinophils # (Manual) Basophils # (Manual) PT INR D-Dimer ABG pH ABG pO2 ABG HCO3 ABG O2 Saturation ABG Base Excess ABG Hemoglobin Oxyhemoglobin Sodium 135 L Potassium 3.3 L Chloride Carbon Dioxide 20 L BUN 27 H Creatinine 0.6 L Glucose 121 H POC Glucose 123 H Lactic Acid Calcium 8.0 L Magnesium Iron TIBC Ferritin AST ALT Lactate Dehydrogenase Troponin T C-Reactive Protein Total Protein Albumin Prealbumin Cholesterol LDL Cholesterol Direct HDL Cholesterol Urine WBC (Auto) Vancomycin Trough Coronavirus (PCR) Crossmatch 07/07/19 07/07/19 07/07/19 17:42 22:00 23:53 WBC RBC Hgb 8.0 L Hct 23.4 L MCV MCH MCHC RDW Plt Count Lymph % (Auto) [place] % (Auto) Lymph # [place] # Baso # Seg Neutrophils % Seg Neuts % (Manual) Lymphocytes % (Manual) Monocytes % (Manual) Basophils % (Manual) Nucleated RBC % Seg Neutrophils # Seg Neutrophils # Man Lymphocytes # (Manual) Monocytes # (Manual) Eosinophils # (Manual) Basophils # (Manual) PT INR D-Dimer ABG pH ABG pO2 ABG HCO3 ABG O2 Saturation ABG Base Excess ABG Hemoglobin Oxyhemoglobin Sodium Potassium Chloride Carbon Dioxide BUN Creatinine Glucose POC Glucose 107 H 117 H Lactic Acid Calcium Magnesium Iron TIBC Ferritin AST ALT Lactate Dehydrogenase Troponin T C-Reactive Protein Total Protein Albumin Prealbumin Cholesterol LDL Cholesterol Direct HDL Cholesterol Urine WBC (Auto) Vancomycin Trough Coronavirus (PCR) Crossmatch 07/08/19 07/08/19 07/08/19 00:45 00:45 00:45 WBC RBC Hgb Hct MCV MCH MCHC RDW Plt Count Lymph % (Auto) [place] % (Auto) Lymph # [place] # Baso # Seg Neutrophils % Seg Neuts % (Manual) Lymphocytes % (Manual) Monocytes % (Manual) Basophils % (Manual) Nucleated RBC % Seg Neutrophils # Seg Neutrophils # Man Lymphocytes # (Manual) Monocytes # (Manual) Eosinophils # (Manual) Basophils # (Manual) PT INR D-Dimer 1142.18 H ABG pH ABG pO2 ABG HCO3 ABG O2 Saturation ABG Base Excess ABG Hemoglobin Oxyhemoglobin Sodium Potassium Chloride Carbon Dioxide BUN Creatinine Glucose POC Glucose Lactic Acid Calcium Magnesium Iron TIBC Ferritin 839.0 H AST ALT Lactate Dehydrogenase 253 H Troponin T C-Reactive Protein 18.90 H Total Protein Albumin Prealbumin Cholesterol LDL Cholesterol Direct HDL Cholesterol Urine WBC (Auto) Vancomycin Trough Coronavirus (PCR) Crossmatch 07/08/19 07/08/19 07/08/19 04:30 05:11 12:02 WBC RBC Hgb Hct MCV MCH MCHC RDW Plt Count Lymph % (Auto) [place] % (Auto) Lymph # [place] # Baso # Seg Neutrophils % Seg Neuts % (Manual) Lymphocytes % (Manual) Monocytes % (Manual) Basophils % (Manual) Nucleated RBC % Seg Neutrophils # Seg Neutrophils # Man Lymphocytes # (Manual) Monocytes # (Manual) Eosinophils # (Manual) Basophils # (Manual) PT INR D-Dimer ABG pH ABG pO2 66.0 L ABG HCO3 ABG O2 Saturation 92.3 L ABG Base Excess ABG Hemoglobin 7.7 L Oxyhemoglobin 90.7 L Sodium Potassium Chloride Carbon Dioxide BUN Creatinine Glucose POC Glucose 108 H 153 H Lactic Acid Calcium Magnesium Iron TIBC Ferritin AST ALT Lactate Dehydrogenase Troponin T C-Reactive Protein Total Protein Albumin Prealbumin Cholesterol LDL Cholesterol Direct HDL Cholesterol Urine WBC (Auto) Vancomycin Trough Coronavirus (PCR) Crossmatch 07/08/19 07/08/19 07/08/19 16:15 18:22 23:35 WBC RBC Hgb Hct MCV MCH MCHC RDW Plt Count Lymph % (Auto) [place] % (Auto) Lymph # [place] # Baso # Seg Neutrophils % Seg Neuts % (Manual) Lymphocytes % (Manual) Monocytes % (Manual) Basophils % (Manual) Nucleated RBC % Seg Neutrophils # Seg Neutrophils # Man Lymphocytes # (Manual) Monocytes # (Manual) Eosinophils # (Manual) Basophils # (Manual) PT INR D-Dimer ABG pH ABG pO2 ABG HCO3 ABG O2 Saturation ABG Base Excess ABG Hemoglobin Oxyhemoglobin Sodium 134 L Potassium 3.3 L Chloride Carbon Dioxide 21 L BUN 27 H Creatinine 0.6 L Glucose 146 H POC Glucose 134 H 133 H Lactic Acid Calcium Magnesium Iron TIBC Ferritin AST ALT Lactate Dehydrogenase Troponin T C-Reactive Protein Total Protein Albumin Prealbumin Cholesterol LDL Cholesterol Direct HDL Cholesterol Urine WBC (Auto) Vancomycin Trough Coronavirus (PCR) Crossmatch 07/09/19 07/09/19 07/09/19 04:30 04:30 05:00 WBC 18.9 H RBC 2.77 L Hgb 7.4 L Hct 22.8 L MCV 82 L MCH 27 L MCHC RDW 20.9 H Plt Count 130 L Lymph % (Auto) [place] % (Auto) Lymph # [place] # Baso # Seg Neutrophils % Seg Neuts % (Manual) 84.0 H Lymphocytes % (Manual) 0 L Monocytes % (Manual) Basophils % (Manual) Nucleated RBC % Seg Neutrophils # Seg Neutrophils # Man 15.9 H Lymphocytes # (Manual) 0.0 L Monocytes # (Manual) Eosinophils # (Manual) Basophils # (Manual) PT INR D-Dimer ABG pH ABG pO2 ABG HCO3 ABG O2 Saturation ABG Base Excess ABG Hemoglobin Oxyhemoglobin Sodium Potassium 3.1 L Chloride Carbon Dioxide BUN 26 H Creatinine 0.5 L Glucose 125 H POC Glucose 155 H Lactic Acid Calcium Magnesium Iron TIBC Ferritin AST ALT Lactate Dehydrogenase Troponin T C-Reactive Protein Total Protein Albumin Prealbumin Cholesterol LDL Cholesterol Direct HDL Cholesterol Urine WBC (Auto) Vancomycin Trough Coronavirus (PCR) Crossmatch 07/09/19 07/09/19 07/09/19 05:55 12:22 17:50 WBC RBC Hgb Hct MCV MCH MCHC RDW Plt Count Lymph % (Auto) [place] % (Auto) Lymph # [place] # Baso # Seg Neutrophils % Seg Neuts % (Manual) Lymphocytes % (Manual) Monocytes % (Manual) Basophils % (Manual) Nucleated RBC % Seg Neutrophils # Seg Neutrophils # Man Lymphocytes # (Manual) Monocytes # (Manual) Eosinophils # (Manual) Basophils # (Manual) PT INR D-Dimer ABG pH ABG pO2 62.8 L ABG HCO3 ABG O2 Saturation ABG Base Excess ABG Hemoglobin 6.1 L Oxyhemoglobin 93.9 L Sodium Potassium Chloride Carbon Dioxide BUN Creatinine Glucose POC Glucose 115 H 133 H Lactic Acid Calcium Magnesium Iron TIBC Ferritin AST ALT Lactate Dehydrogenase Troponin T C-Reactive Protein Total Protein Albumin Prealbumin Cholesterol LDL Cholesterol Direct HDL Cholesterol Urine WBC (Auto) Vancomycin Trough Coronavirus (PCR) Crossmatch 07/10/19 07/10/19 07/10/19 00:38 04:00 04:00 WBC RBC Hgb Hct MCV MCH MCHC RDW Plt Count Lymph % (Auto) [place] % (Auto) Lymph # [place] # Baso # Seg Neutrophils % Seg Neuts % (Manual) Lymphocytes % (Manual) Monocytes % (Manual) Basophils % (Manual) Nucleated RBC % Seg Neutrophils # Seg Neutrophils # Man Lymphocytes # (Manual) Monocytes # (Manual) Eosinophils # (Manual) Basophils # (Manual) PT INR D-Dimer ABG pH ABG pO2 ABG HCO3 ABG O2 Saturation ABG Base Excess ABG Hemoglobin Oxyhemoglobin Sodium Potassium Chloride 107.9 H Carbon Dioxide BUN 26 H Creatinine 0.4 L Glucose 137 H POC Glucose 122 H Lactic Acid Calcium Magnesium 1.50 L Iron TIBC Ferritin AST ALT Lactate Dehydrogenase 277 H Troponin T C-Reactive Protein 15.10 H Total Protein Albumin Prealbumin Cholesterol LDL Cholesterol Direct HDL Cholesterol Urine WBC (Auto) Vancomycin Trough Coronavirus (PCR) Crossmatch 07/10/19 07/10/19 07/10/19 04:07 05:21 17:25 WBC RBC Hgb Hct MCV MCH MCHC RDW Plt Count Lymph % (Auto) [place] % (Auto) Lymph # [place] # Baso # Seg Neutrophils % Seg Neuts % (Manual) Lymphocytes % (Manual) Monocytes % (Manual) Basophils % (Manual) Nucleated RBC % Seg Neutrophils # Seg Neutrophils # Man Lymphocytes # (Manual) Monocytes # (Manual) Eosinophils # (Manual) Basophils # (Manual) PT INR D-Dimer ABG pH ABG pO2 65.6 L ABG HCO3 26.3 H ABG O2 Saturation ABG Base Excess ABG Hemoglobin 6.7 L Oxyhemoglobin Sodium Potassium Chloride Carbon Dioxide BUN Creatinine Glucose POC Glucose 144 H 113 H Lactic Acid Calcium Magnesium Iron TIBC Ferritin AST ALT Lactate Dehydrogenase Troponin T C-Reactive Protein Total Protein Albumin Prealbumin Cholesterol LDL Cholesterol Direct HDL Cholesterol Urine WBC (Auto) Vancomycin Trough Coronavirus (PCR) Crossmatch 07/11/19 07/11/19 07/11/19 00:07 05:14 05:25 WBC RBC Hgb Hct MCV MCH MCHC RDW Plt Count Lymph % (Auto) [place] % (Auto) Lymph # [place] # Baso # Seg Neutrophils % Seg Neuts % (Manual) Lymphocytes % (Manual) Monocytes % (Manual) Basophils % (Manual) Nucleated RBC % Seg Neutrophils # Seg Neutrophils # Man Lymphocytes # (Manual) Monocytes # (Manual) Eosinophils # (Manual) Basophils # (Manual) PT INR D-Dimer ABG pH ABG pO2 ABG HCO3 ABG O2 Saturation ABG Base Excess ABG Hemoglobin 5.8 L Oxyhemoglobin Sodium Potassium Chloride 108.0 H Carbon Dioxide BUN 26 H Creatinine 0.4 L Glucose 110 H POC Glucose 121 H Lactic Acid Calcium Magnesium Iron TIBC Ferritin AST ALT Lactate Dehydrogenase Troponin T C-Reactive Protein Total Protein Albumin Prealbumin Cholesterol LDL Cholesterol Direct HDL Cholesterol Urine WBC (Auto) Vancomycin Trough Coronavirus (PCR) Crossmatch 07/11/19 07/11/19 07/11/19 12:27 18:00 23:42 WBC RBC Hgb Hct MCV MCH MCHC RDW Plt Count Lymph % (Auto) [place] % (Auto) Lymph # [place] # Baso # Seg Neutrophils % Seg Neuts % (Manual) Lymphocytes % (Manual) Monocytes % (Manual) Basophils % (Manual) Nucleated RBC % Seg Neutrophils # Seg Neutrophils # Man Lymphocytes # (Manual) Monocytes # (Manual) Eosinophils # (Manual) Basophils # (Manual) PT INR D-Dimer ABG pH ABG pO2 ABG HCO3 ABG O2 Saturation ABG Base Excess ABG Hemoglobin Oxyhemoglobin Sodium Potassium Chloride Carbon Dioxide BUN Creatinine Glucose POC Glucose 158 H 141 H 142 H Lactic Acid Calcium Magnesium Iron TIBC Ferritin AST ALT Lactate Dehydrogenase Troponin T C-Reactive Protein Total Protein Albumin Prealbumin Cholesterol LDL Cholesterol Direct HDL Cholesterol Urine WBC (Auto) Vancomycin Trough Coronavirus (PCR) Crossmatch 07/12/19 07/12/19 07/12/19 04:46 04:46 05:23 WBC 23.6 H RBC 2.51 L Hgb 6.7 L Hct 20.8 L MCV 83 L MCH 27 L MCHC RDW 20.3 H Plt Count Lymph % (Auto) [place] % (Auto) Lymph # [place] # Baso # Seg Neutrophils % Seg Neuts % (Manual) 94.0 H Lymphocytes % (Manual) 4.0 L Monocytes % (Manual) Basophils % (Manual) Nucleated RBC % Seg Neutrophils # Seg Neutrophils # Man 22.2 H Lymphocytes # (Manual) 0.9 L Monocytes # (Manual) Eosinophils # (Manual) Basophils # (Manual) PT INR D-Dimer ABG pH ABG pO2 ABG HCO3 ABG O2 Saturation ABG Base Excess ABG Hemoglobin Oxyhemoglobin Sodium Potassium Chloride 107.1 H Carbon Dioxide BUN 25 H Creatinine 0.4 L Glucose 122 H POC Glucose 118 H Lactic Acid Calcium Magnesium Iron TIBC Ferritin AST ALT Lactate Dehydrogenase Troponin T C-Reactive Protein Total Protein Albumin Prealbumin Cholesterol LDL Cholesterol Direct HDL Cholesterol Urine WBC (Auto) Vancomycin Trough Coronavirus (PCR) Crossmatch 07/12/19 07/12/19 07/12/19 08:49 11:36 18:15 WBC RBC Hgb Hct MCV MCH MCHC RDW Plt Count Lymph % (Auto) [place] % (Auto) Lymph # [place] # Baso # Seg Neutrophils % Seg Neuts % (Manual) Lymphocytes % (Manual) Monocytes % (Manual) Basophils % (Manual) Nucleated RBC % Seg Neutrophils # Seg Neutrophils # Man Lymphocytes # (Manual) Monocytes # (Manual) Eosinophils # (Manual) Basophils # (Manual) PT INR D-Dimer ABG pH ABG pO2 ABG HCO3 ABG O2 Saturation ABG Base Excess ABG Hemoglobin Oxyhemoglobin Sodium Potassium Chloride Carbon Dioxide BUN Creatinine Glucose POC Glucose 124 H 110 H Lactic Acid Calcium Magnesium Iron TIBC Ferritin AST ALT Lactate Dehydrogenase Troponin T C-Reactive Protein Total Protein Albumin Prealbumin Cholesterol LDL Cholesterol Direct HDL Cholesterol Urine WBC (Auto) Vancomycin Trough Coronavirus (PCR) Crossmatch See Detail 07/12/19 07/13/19 07/13/19 23:16 05:26 06:50 WBC 23.9 H RBC 2.58 L Hgb 6.9 L Hct 21.5 L MCV 83 L MCH 27 L MCHC RDW 19.0 H Plt Count Lymph % (Auto) [place] % (Auto) Lymph # [place] # Baso # Seg Neutrophils % Seg Neuts % (Manual) 96.0 H Lymphocytes % (Manual) 3.0 L Monocytes % (Manual) Basophils % (Manual) Nucleated RBC % Seg Neutrophils # Seg Neutrophils # Man 22.9 H Lymphocytes # (Manual) 0.7 L Monocytes # (Manual) Eosinophils # (Manual) Basophils # (Manual) PT INR D-Dimer ABG pH ABG pO2 ABG HCO3 ABG O2 Saturation ABG Base Excess ABG Hemoglobin Oxyhemoglobin Sodium Potassium Chloride Carbon Dioxide BUN Creatinine Glucose POC Glucose 108 H 126 H Lactic Acid Calcium Magnesium Iron TIBC Ferritin AST ALT Lactate Dehydrogenase Troponin T C-Reactive Protein Total Protein Albumin Prealbumin Cholesterol LDL Cholesterol Direct HDL Cholesterol Urine WBC (Auto) Vancomycin Trough Coronavirus (PCR) Crossmatch 07/13/19 07/13/19 07/13/19 06:50 12:38 18:05 WBC RBC Hgb Hct MCV MCH MCHC RDW Plt Count Lymph % (Auto) [place] % (Auto) Lymph # [place] # Baso # Seg Neutrophils % Seg Neuts % (Manual) Lymphocytes % (Manual) Monocytes % (Manual) Basophils % (Manual) Nucleated RBC % Seg Neutrophils # Seg Neutrophils # Man Lymphocytes # (Manual) Monocytes # (Manual) Eosinophils # (Manual) Basophils # (Manual) PT INR D-Dimer ABG pH ABG pO2 ABG HCO3 ABG O2 Saturation ABG Base Excess ABG Hemoglobin Oxyhemoglobin Sodium Potassium Chloride Carbon Dioxide BUN 33 H Creatinine 0.5 L Glucose 136 H POC Glucose 164 H 145 H Lactic Acid Calcium Magnesium Iron TIBC Ferritin AST ALT Lactate Dehydrogenase Troponin T C-Reactive Protein Total Protein Albumin Prealbumin Cholesterol LDL Cholesterol Direct HDL Cholesterol Urine WBC (Auto) Vancomycin Trough Coronavirus (PCR) Crossmatch 07/13/19 07/14/19 07/14/19 18:30 00:21 04:40 WBC 22.9 H RBC 2.45 L Hgb 6.6 L Hct 21.1 L MCV MCH 27 L MCHC 31 L RDW 19.2 H Plt Count Lymph % (Auto) [place] % (Auto) Lymph # [place] # Baso # Seg Neutrophils % Seg Neuts % (Manual) 91.0 H Lymphocytes % (Manual) 7.0 L Monocytes % (Manual) Basophils % (Manual) Nucleated RBC % Seg Neutrophils # Seg Neutrophils # Man 20.8 H Lymphocytes # (Manual) Monocytes # (Manual) Eosinophils # (Manual) Basophils # (Manual) PT INR D-Dimer ABG pH ABG pO2 58.1 L ABG HCO3 ABG O2 Saturation 88.7 L ABG Base Excess ABG Hemoglobin 7.8 L Oxyhemoglobin 86.8 L Sodium Potassium Chloride Carbon Dioxide BUN Creatinine Glucose POC Glucose 118 H Lactic Acid Calcium Magnesium Iron TIBC Ferritin AST ALT Lactate Dehydrogenase Troponin T C-Reactive Protein Total Protein Albumin Prealbumin Cholesterol LDL Cholesterol Direct HDL Cholesterol Urine WBC (Auto) Vancomycin Trough Coronavirus (PCR) Crossmatch 07/14/19 07/14/19 07/14/19 04:40 05:38 05:45 WBC RBC Hgb Hct MCV MCH MCHC RDW Plt Count Lymph % (Auto) [place] % (Auto) Lymph # [place] # Baso # Seg Neutrophils % Seg Neuts % (Manual) Lymphocytes % (Manual) Monocytes % (Manual) Basophils % (Manual) Nucleated RBC % Seg Neutrophils # Seg Neutrophils # Man Lymphocytes # (Manual) Monocytes # (Manual) Eosinophils # (Manual) Basophils # (Manual) PT INR D-Dimer ABG pH 7.230 L ABG pO2 72.1 L ABG HCO3 ABG O2 Saturation 89.3 L ABG Base Excess -2.7 L ABG Hemoglobin 6.7 L Oxyhemoglobin 87.7 L Sodium Potassium Chloride 107.4 H Carbon Dioxide BUN 45 H Creatinine Glucose 101 H POC Glucose 154 H Lactic Acid Calcium Magnesium Iron TIBC Ferritin AST ALT Lactate Dehydrogenase Troponin T C-Reactive Protein Total Protein Albumin Prealbumin Cholesterol LDL Cholesterol Direct HDL Cholesterol Urine WBC (Auto) Vancomycin Trough Coronavirus (PCR) Crossmatch 07/14/19 07/14/19 07/14/19 12:25 18:20 19:01 WBC 22.4 H RBC 2.70 L Hgb 7.5 L Hct 23.3 L MCV MCH MCHC RDW 19.5 H Plt Count Lymph % (Auto) [place] % (Auto) Lymph # [place] # Baso # Seg Neutrophils % Seg Neuts % (Manual) Lymphocytes % (Manual) Monocytes % (Manual) Basophils % (Manual) Nucleated RBC % Seg Neutrophils # Seg Neutrophils # Man Lymphocytes # (Manual) Monocytes # (Manual) Eosinophils # (Manual) Basophils # (Manual) PT INR D-Dimer ABG pH ABG pO2 ABG HCO3 ABG O2 Saturation ABG Base Excess ABG Hemoglobin Oxyhemoglobin Sodium Potassium Chloride Carbon Dioxide BUN Creatinine Glucose POC Glucose 136 H 131 H Lactic Acid Calcium Magnesium Iron TIBC Ferritin AST ALT Lactate Dehydrogenase Troponin T C-Reactive Protein Total Protein Albumin Prealbumin Cholesterol LDL Cholesterol Direct HDL Cholesterol Urine WBC (Auto) Vancomycin Trough Coronavirus (PCR) Crossmatch 07/15/19 07/15/19 07/15/19 00:17 04:35 05:18 WBC 20.6 H RBC 2.41 L Hgb 6.8 L Hct 20.7 L MCV MCH MCHC RDW 20.2 H Plt Count Lymph % (Auto) [place] % (Auto) Lymph # [place] # Baso # Seg Neutrophils % Seg Neuts % (Manual) 92.0 H Lymphocytes % (Manual) 5.0 L Monocytes % (Manual) Basophils % (Manual) Nucleated RBC % Seg Neutrophils # Seg Neutrophils # Man 19.0 H Lymphocytes # (Manual) 1.0 L Monocytes # (Manual) Eosinophils # (Manual) Basophils # (Manual) PT INR D-Dimer ABG pH 7.342 L ABG pO2 ABG HCO3 ABG O2 Saturation ABG Base Excess -3.1 L ABG Hemoglobin 7.2 L Oxyhemoglobin 94.9 L Sodium Potassium Chloride Carbon Dioxide BUN Creatinine Glucose POC Glucose 116 H Lactic Acid Calcium Magnesium Iron TIBC Ferritin AST ALT Lactate Dehydrogenase Troponin T C-Reactive Protein Total Protein Albumin Prealbumin Cholesterol LDL Cholesterol Direct HDL Cholesterol Urine WBC (Auto) Vancomycin Trough Coronavirus (PCR) Crossmatch 07/15/19 07/15/19 07/15/19 05:18 05:57 11:28 WBC RBC Hgb Hct MCV MCH MCHC RDW Plt Count Lymph % (Auto) [place] % (Auto) Lymph # [place] # Baso # Seg Neutrophils % Seg Neuts % (Manual) Lymphocytes % (Manual) Monocytes % (Manual) Basophils % (Manual) Nucleated RBC % Seg Neutrophils # Seg Neutrophils # Man Lymphocytes # (Manual) Monocytes # (Manual) Eosinophils # (Manual) Basophils # (Manual) PT INR D-Dimer ABG pH ABG pO2 ABG HCO3 ABG O2 Saturation ABG Base Excess ABG Hemoglobin Oxyhemoglobin Sodium Potassium Chloride Carbon Dioxide 20 L BUN 59 H Creatinine Glucose 140 H POC Glucose 139 H 117 H Lactic Acid Calcium Magnesium Iron TIBC Ferritin AST ALT Lactate Dehydrogenase Troponin T C-Reactive Protein Total Protein Albumin Prealbumin Cholesterol LDL Cholesterol Direct HDL Cholesterol Urine WBC (Auto) Vancomycin Trough Coronavirus (PCR) Crossmatch 07/15/19 07/16/19 07/16/19 18:13 00:06 03:43 WBC RBC Hgb Hct MCV MCH MCHC RDW Plt Count Lymph % (Auto) [place] % (Auto) Lymph # [place] # Baso # Seg Neutrophils % Seg Neuts % (Manual) Lymphocytes % (Manual) Monocytes % (Manual) Basophils % (Manual) Nucleated RBC % Seg Neutrophils # Seg Neutrophils # Man Lymphocytes # (Manual) Monocytes # (Manual) Eosinophils # (Manual) Basophils # (Manual) PT INR D-Dimer ABG pH 7.344 L ABG pO2 68.6 L ABG HCO3 ABG O2 Saturation ABG Base Excess -3.5 L ABG Hemoglobin 6.1 L Oxyhemoglobin 93.3 L Sodium Potassium Chloride Carbon Dioxide BUN Creatinine Glucose POC Glucose 114 H 119 H Lactic Acid Calcium Magnesium Iron TIBC Ferritin AST ALT Lactate Dehydrogenase Troponin T C-Reactive Protein Total Protein Albumin Prealbumin Cholesterol LDL Cholesterol Direct HDL Cholesterol Urine WBC (Auto) Vancomycin Trough Coronavirus (PCR) Crossmatch 07/16/19 07/16/19 07/16/19 04:41 04:41 12:09 WBC 19.6 H RBC 2.81 L Hgb 7.7 L Hct 24.0 L MCV MCH 27 L MCHC RDW 19.4 H Plt Count 514 H Lymph % (Auto) 6.7 L [place] % (Auto) Lymph # [place] # 1.0 H Baso # Seg Neutrophils % 87.0 H Seg Neuts % (Manual) Lymphocytes % (Manual) Monocytes % (Manual) Basophils % (Manual) Nucleated RBC % Seg Neutrophils # 17.0 H Seg Neutrophils # Man Lymphocytes # (Manual) Monocytes # (Manual) Eosinophils # (Manual) Basophils # (Manual) PT INR D-Dimer ABG pH ABG pO2 ABG HCO3 ABG O2 Saturation ABG Base Excess ABG Hemoglobin Oxyhemoglobin Sodium Potassium 5.9 H Chloride Carbon Dioxide 21 L BUN 73 H Creatinine 2.0 H Glucose POC Glucose 141 H Lactic Acid Calcium Magnesium Iron TIBC Ferritin AST ALT Lactate Dehydrogenase Troponin T C-Reactive Protein Total Protein Albumin Prealbumin Cholesterol LDL Cholesterol Direct HDL Cholesterol Urine WBC (Auto) Vancomycin Trough Coronavirus (PCR) Crossmatch 07/16/19 07/16/19 07/17/19 16:19 17:45 00:16 WBC RBC Hgb Hct MCV MCH MCHC RDW Plt Count Lymph % (Auto) [place] % (Auto) Lymph # [place] # Baso # Seg Neutrophils % Seg Neuts % (Manual) Lymphocytes % (Manual) Monocytes % (Manual) Basophils % (Manual) Nucleated RBC % Seg Neutrophils # Seg Neutrophils # Man Lymphocytes # (Manual) Monocytes # (Manual) Eosinophils # (Manual) Basophils # (Manual) PT INR D-Dimer ABG pH ABG pO2 ABG HCO3 ABG O2 Saturation ABG Base Excess ABG Hemoglobin Oxyhemoglobin Sodium Potassium 5.1 H Chloride Carbon Dioxide 20 L BUN 72 H Creatinine 1.7 H Glucose 128 H POC Glucose 181 H 164 H Lactic Acid Calcium Magnesium Iron TIBC Ferritin AST ALT Lactate Dehydrogenase Troponin T C-Reactive Protein Total Protein Albumin Prealbumin Cholesterol LDL Cholesterol Direct HDL Cholesterol Urine WBC (Auto) Vancomycin Trough Coronavirus (PCR) Crossmatch 07/17/19 07/17/19 07/17/19 04:20 04:39 04:39 WBC 16.1 H RBC 2.92 L Hgb 8.0 L Hct 25.5 L MCV MCH MCHC 31 L RDW 19.7 H Plt Count 564 H Lymph % (Auto) 3.6 L [place] % (Auto) 7.4 H Lymph # 0.6 L [place] # 1.2 H Baso # Seg Neutrophils % 87.5 H Seg Neuts % (Manual) Lymphocytes % (Manual) Monocytes % (Manual) Basophils % (Manual) Nucleated RBC % Seg Neutrophils # 14.1 H Seg Neutrophils # Man Lymphocytes # (Manual) Monocytes # (Manual) Eosinophils # (Manual) Basophils # (Manual) PT INR D-Dimer ABG pH 7.231 L ABG pO2 95.3 H ABG HCO3 ABG O2 Saturation ABG Base Excess -5.0 L ABG Hemoglobin 7.9 L Oxyhemoglobin 94.8 L Sodium Potassium Chloride 107.8 H Carbon Dioxide 21 L BUN 68 H Creatinine Glucose POC Glucose Lactic Acid Calcium Magnesium Iron TIBC Ferritin AST ALT Lactate Dehydrogenase Troponin T C-Reactive Protein Total Protein Albumin Prealbumin Cholesterol LDL Cholesterol Direct HDL Cholesterol Urine WBC (Auto) Vancomycin Trough Coronavirus (PCR) Crossmatch 07/17/19 07/17/19 07/17/19 05:28 12:11 18:48 WBC RBC Hgb Hct MCV MCH MCHC RDW Plt Count Lymph % (Auto) [place] % (Auto) Lymph # [place] # Baso # Seg Neutrophils % Seg Neuts % (Manual) Lymphocytes % (Manual) Monocytes % (Manual) Basophils % (Manual) Nucleated RBC % Seg Neutrophils # Seg Neutrophils # Man Lymphocytes # (Manual) Monocytes # (Manual) Eosinophils # (Manual) Basophils # (Manual) PT INR D-Dimer ABG pH ABG pO2 ABG HCO3 ABG O2 Saturation ABG Base Excess ABG Hemoglobin Oxyhemoglobin Sodium Potassium Chloride Carbon Dioxide BUN Creatinine Glucose POC Glucose 121 H 125 H 174 H Lactic Acid Calcium Magnesium Iron TIBC Ferritin AST ALT Lactate Dehydrogenase Troponin T C-Reactive Protein Total Protein Albumin Prealbumin Cholesterol LDL Cholesterol Direct HDL Cholesterol Urine WBC (Auto) Vancomycin Trough Coronavirus (PCR) Crossmatch 07/17/19 07/17/19 07/18/19 19:55 23:57 02:30 WBC RBC Hgb Hct MCV MCH MCHC RDW Plt Count Lymph % (Auto) [place] % (Auto) Lymph # [place] # Baso # Seg Neutrophils % Seg Neuts % (Manual) Lymphocytes % (Manual) Monocytes % (Manual) Basophils % (Manual) Nucleated RBC % Seg Neutrophils # Seg Neutrophils # Man Lymphocytes # (Manual) Monocytes # (Manual) Eosinophils # (Manual) Basophils # (Manual) PT INR D-Dimer ABG pH 7.344 L 7.294 L ABG pO2 78.5 L 119.2 H ABG HCO3 ABG O2 Saturation ABG Base Excess -3.3 L -2.6 L ABG Hemoglobin 8.6 L 8.1 L Oxyhemoglobin 94.8 L Sodium Potassium Chloride Carbon Dioxide BUN Creatinine Glucose POC Glucose 148 H Lactic Acid Calcium Magnesium Iron TIBC Ferritin AST ALT Lactate Dehydrogenase Troponin T C-Reactive Protein Total Protein Albumin Prealbumin Cholesterol LDL Cholesterol Direct HDL Cholesterol Urine WBC (Auto) Vancomycin Trough Coronavirus (PCR) Crossmatch 07/18/19 07/18/19 07/18/19 04:49 05:22 05:22 WBC 15.9 H RBC 3.00 L Hgb 8.1 L Hct 26.0 L MCV MCH 27 L MCHC 31 L RDW 19.4 H Plt Count 733 H Lymph % (Auto) 6.3 L [place] % (Auto) 7.4 H Lymph # 1.0 L [place] # 1.2 H Baso # 0.2 H Seg Neutrophils % 83.8 H Seg Neuts % (Manual) Lymphocytes % (Manual) Monocytes % (Manual) Basophils % (Manual) Nucleated RBC % Seg Neutrophils # 13.3 H Seg Neutrophils # Man Lymphocytes # (Manual) Monocytes # (Manual) Eosinophils # (Manual) Basophils # (Manual) PT INR D-Dimer ABG pH ABG pO2 ABG HCO3 ABG O2 Saturation ABG Base Excess ABG Hemoglobin Oxyhemoglobin Sodium Potassium Chloride 110.6 H Carbon Dioxide BUN 61 H Creatinine Glucose 109 H POC Glucose 116 H Lactic Acid Calcium Magnesium Iron TIBC Ferritin AST ALT Lactate Dehydrogenase Troponin T C-Reactive Protein Total Protein Albumin Prealbumin Cholesterol LDL Cholesterol Direct HDL Cholesterol Urine WBC (Auto) Vancomycin Trough Coronavirus (PCR) Crossmatch 07/18/19 07/18/19 07/18/19 12:23 18:06 22:20 WBC RBC Hgb Hct MCV MCH MCHC RDW Plt Count Lymph % (Auto) [place] % (Auto) Lymph # [place] # Baso # Seg Neutrophils % Seg Neuts % (Manual) Lymphocytes % (Manual) Monocytes % (Manual) Basophils % (Manual) Nucleated RBC % Seg Neutrophils # Seg Neutrophils # Man Lymphocytes # (Manual) Monocytes # (Manual) Eosinophils # (Manual) Basophils # (Manual) PT INR D-Dimer ABG pH 7.338 L ABG pO2 135.1 H ABG HCO3 ABG O2 Saturation ABG Base Excess ABG Hemoglobin 9.2 L Oxyhemoglobin Sodium Potassium Chloride Carbon Dioxide BUN Creatinine Glucose POC Glucose 114 H 113 H Lactic Acid Calcium Magnesium Iron TIBC Ferritin AST ALT Lactate Dehydrogenase Troponin T C-Reactive Protein Total Protein Albumin Prealbumin Cholesterol LDL Cholesterol Direct HDL Cholesterol Urine WBC (Auto) Vancomycin Trough Coronavirus (PCR) Crossmatch 07/18/19 07/19/19 07/19/19 23:33 03:45 05:18 WBC RBC Hgb Hct MCV MCH MCHC RDW Plt Count Lymph % (Auto) [place] % (Auto) Lymph # [place] # Baso # Seg Neutrophils % Seg Neuts % (Manual) Lymphocytes % (Manual) Monocytes % (Manual) Basophils % (Manual) Nucleated RBC % Seg Neutrophils # Seg Neutrophils # Man Lymphocytes # (Manual) Monocytes # (Manual) Eosinophils # (Manual) Basophils # (Manual) PT INR D-Dimer ABG pH 7.342 L ABG pO2 95.0 H ABG HCO3 ABG O2 Saturation ABG Base Excess ABG Hemoglobin 8.5 L Oxyhemoglobin Sodium Potassium Chloride Carbon Dioxide BUN Creatinine Glucose POC Glucose 125 H 111 H Lactic Acid Calcium Magnesium Iron TIBC Ferritin AST ALT Lactate Dehydrogenase Troponin T C-Reactive Protein Total Protein Albumin Prealbumin Cholesterol LDL Cholesterol Direct HDL Cholesterol Urine WBC (Auto) Vancomycin Trough Coronavirus (PCR) Crossmatch 07/19/19 07/19/19 07/19/19 08:45 08:45 11:47 WBC 15.9 H RBC 3.31 L Hgb 9.1 L Hct 28.4 L MCV MCH 27 L MCHC RDW 19.1 H Plt Count 858 H Lymph % (Auto) 4.9 L [place] % (Auto) 8.1 H Lymph # 0.8 L [place] # 1.3 H Baso # Seg Neutrophils % 85.5 H Seg Neuts % (Manual) Lymphocytes % (Manual) Monocytes % (Manual) Basophils % (Manual) Nucleated RBC % Seg Neutrophils # 13.6 H Seg Neutrophils # Man Lymphocytes # (Manual) Monocytes # (Manual) Eosinophils # (Manual) Basophils # (Manual) PT INR D-Dimer ABG pH ABG pO2 ABG HCO3 ABG O2 Saturation ABG Base Excess ABG Hemoglobin Oxyhemoglobin Sodium Potassium Chloride 111.6 H Carbon Dioxide BUN 50 H Creatinine 0.7 L Glucose 118 H POC Glucose 114 H Lactic Acid Calcium Magnesium Iron TIBC Ferritin AST ALT Lactate Dehydrogenase Troponin T C-Reactive Protein Total Protein Albumin Prealbumin Cholesterol LDL Cholesterol Direct HDL Cholesterol Urine WBC (Auto) Vancomycin Trough Coronavirus (PCR) Crossmatch 07/19/19 07/19/19 07/20/19 18:25 23:44 04:39 WBC RBC Hgb Hct MCV MCH MCHC RDW Plt Count Lymph % (Auto) [place] % (Auto) Lymph # [place] # Baso # Seg Neutrophils % Seg Neuts % (Manual) Lymphocytes % (Manual) Monocytes % (Manual) Basophils % (Manual) Nucleated RBC % Seg Neutrophils # Seg Neutrophils # Man Lymphocytes # (Manual) Monocytes # (Manual) Eosinophils # (Manual) Basophils # (Manual) PT INR D-Dimer ABG pH ABG pO2 ABG HCO3 ABG O2 Saturation ABG Base Excess ABG Hemoglobin Oxyhemoglobin Sodium Potassium Chloride 110.3 H Carbon Dioxide BUN 44 H Creatinine 0.6 L Glucose 120 H POC Glucose 115 H 117 H Lactic Acid Calcium Magnesium Iron TIBC Ferritin AST ALT Lactate Dehydrogenase Troponin T C-Reactive Protein Total Protein Albumin Prealbumin Cholesterol LDL Cholesterol Direct HDL Cholesterol Urine WBC (Auto) Vancomycin Trough Coronavirus (PCR) Crossmatch 07/20/19 07/21/19 07/21/19 05:30 11:59 17:40 WBC RBC Hgb Hct MCV MCH MCHC RDW Plt Count Lymph % (Auto) [place] % (Auto) Lymph # [place] # Baso # Seg Neutrophils % Seg Neuts % (Manual) Lymphocytes % (Manual) Monocytes % (Manual) Basophils % (Manual) Nucleated RBC % Seg Neutrophils # Seg Neutrophils # Man Lymphocytes # (Manual) Monocytes # (Manual) Eosinophils # (Manual) Basophils # (Manual) PT INR D-Dimer ABG pH ABG pO2 ABG HCO3 ABG O2 Saturation ABG Base Excess ABG Hemoglobin Oxyhemoglobin Sodium Potassium Chloride Carbon Dioxide BUN Creatinine Glucose POC Glucose 131 H 122 H 125 H Lactic Acid Calcium Magnesium Iron TIBC Ferritin AST ALT Lactate Dehydrogenase Troponin T C-Reactive Protein Total Protein Albumin Prealbumin Cholesterol LDL Cholesterol Direct HDL Cholesterol Urine WBC (Auto) Vancomycin Trough Coronavirus (PCR) Crossmatch 07/22/19 07/22/19 07/22/19 05:38 05:38 12:29 WBC 12.6 H RBC 3.19 L Hgb 8.9 L Hct 27.5 L MCV MCH MCHC RDW 18.9 H Plt Count 1101 H* Lymph % (Auto) [place] % (Auto) 12.2 H Lymph # [place] # 1.5 H Baso # Seg Neutrophils % 72.8 H Seg Neuts % (Manual) 76.0 H Lymphocytes % (Manual) 7.0 L Monocytes % (Manual) 14.0 H Basophils % (Manual) Nucleated RBC % 1.0 H Seg Neutrophils # 9.2 H Seg Neutrophils # Man 9.6 H Lymphocytes # (Manual) 0.9 L Monocytes # (Manual) 1.8 H Eosinophils # (Manual) Basophils # (Manual) PT INR D-Dimer ABG pH ABG pO2 ABG HCO3 ABG O2 Saturation ABG Base Excess ABG Hemoglobin Oxyhemoglobin Sodium Potassium 3.4 L Chloride Carbon Dioxide BUN 29 H Creatinine 0.5 L Glucose POC Glucose 116 H Lactic Acid Calcium Magnesium Iron TIBC Ferritin AST ALT Lactate Dehydrogenase Troponin T C-Reactive Protein Total Protein Albumin Prealbumin Cholesterol LDL Cholesterol Direct HDL Cholesterol Urine WBC (Auto) Vancomycin Trough Coronavirus (PCR) Crossmatch 07/22/19 07/22/19 07/23/19 18:20 23:51 04:52 WBC RBC Hgb Hct MCV MCH MCHC RDW Plt Count Lymph % (Auto) [place] % (Auto) Lymph # [place] # Baso # Seg Neutrophils % Seg Neuts % (Manual) Lymphocytes % (Manual) Monocytes % (Manual) Basophils % (Manual) Nucleated RBC % Seg Neutrophils # Seg Neutrophils # Man Lymphocytes # (Manual) Monocytes # (Manual) Eosinophils # (Manual) Basophils # (Manual) PT INR D-Dimer ABG pH ABG pO2 ABG HCO3 ABG O2 Saturation ABG Base Excess ABG Hemoglobin Oxyhemoglobin Sodium Potassium Chloride Carbon Dioxide BUN 24 H Creatinine 0.4 L Glucose POC Glucose 107 H 110 H Lactic Acid Calcium Magnesium Iron TIBC Ferritin AST ALT Lactate Dehydrogenase Troponin T C-Reactive Protein Total Protein Albumin Prealbumin Cholesterol LDL Cholesterol Direct HDL Cholesterol Urine WBC (Auto) Vancomycin Trough Coronavirus (PCR) Crossmatch 07/23/19 07/23/19 07/24/19 06:00 23:15 04:40 WBC RBC Hgb Hct MCV MCH MCHC RDW Plt Count Lymph % (Auto) [place] % (Auto) Lymph # [place] # Baso # Seg Neutrophils % Seg Neuts % (Manual) Lymphocytes % (Manual) Monocytes % (Manual) Basophils % (Manual) Nucleated RBC % Seg Neutrophils # Seg Neutrophils # Man Lymphocytes # (Manual) Monocytes # (Manual) Eosinophils # (Manual) Basophils # (Manual) PT INR D-Dimer ABG pH ABG pO2 73.5 L ABG HCO3 27.0 H 28.5 H ABG O2 Saturation 94.5 L ABG Base Excess ABG Hemoglobin 9.4 L 8.9 L Oxyhemoglobin 94.0 L 92.7 L Sodium Potassium Chloride Carbon Dioxide BUN Creatinine Glucose POC Glucose 117 H Lactic Acid Calcium Magnesium Iron TIBC Ferritin AST ALT Lactate Dehydrogenase Troponin T C-Reactive Protein Total Protein Albumin Prealbumin Cholesterol LDL Cholesterol Direct HDL Cholesterol Urine WBC (Auto) Vancomycin Trough Coronavirus (PCR) Crossmatch 07/24/19 07/24/19 07/25/19 05:25 12:06 00:16 WBC RBC Hgb Hct MCV MCH MCHC RDW Plt Count Lymph % (Auto) [place] % (Auto) Lymph # [place] # Baso # Seg Neutrophils % Seg Neuts % (Manual) Lymphocytes % (Manual) Monocytes % (Manual) Basophils % (Manual) Nucleated RBC % Seg Neutrophils # Seg Neutrophils # Man Lymphocytes # (Manual) Monocytes # (Manual) Eosinophils # (Manual) Basophils # (Manual) PT INR D-Dimer ABG pH ABG pO2 ABG HCO3 ABG O2 Saturation ABG Base Excess ABG Hemoglobin Oxyhemoglobin Sodium Potassium Chloride Carbon Dioxide BUN Creatinine Glucose POC Glucose 114 H 108 H 106 H Lactic Acid Calcium Magnesium Iron TIBC Ferritin AST ALT Lactate Dehydrogenase Troponin T C-Reactive Protein Total Protein Albumin Prealbumin Cholesterol LDL Cholesterol Direct HDL Cholesterol Urine WBC (Auto) Vancomycin Trough Coronavirus (PCR) Crossmatch 07/25/19 07/25/19 07/25/19 05:14 05:14 05:17 WBC 17.8 H RBC 3.32 L Hgb 9.2 L Hct 28.6 L MCV MCH MCHC RDW 19.9 H Plt Count 994 H Lymph % (Auto) [place] % (Auto) Lymph # [place] # Baso # Seg Neutrophils % Seg Neuts % (Manual) 82.0 H Lymphocytes % (Manual) 5.0 L Monocytes % (Manual) Basophils % (Manual) Nucleated RBC % Seg Neutrophils # Seg Neutrophils # Man 14.6 H Lymphocytes # (Manual) 0.9 L Monocytes # (Manual) 1.2 H Eosinophils # (Manual) Basophils # (Manual) PT INR D-Dimer ABG pH ABG pO2 ABG HCO3 ABG O2 Saturation ABG Base Excess ABG Hemoglobin Oxyhemoglobin Sodium Potassium Chloride Carbon Dioxide BUN Creatinine 0.4 L Glucose 110 H POC Glucose 107 H Lactic Acid Calcium Magnesium Iron TIBC Ferritin AST ALT Lactate Dehydrogenase Troponin T C-Reactive Protein Total Protein Albumin Prealbumin Cholesterol LDL Cholesterol Direct HDL Cholesterol Urine WBC (Auto) Vancomycin Trough Coronavirus (PCR) Crossmatch 07/25/19 07/25/19 07/26/19 11:55 23:49 06:01 WBC RBC Hgb Hct MCV MCH MCHC RDW Plt Count Lymph % (Auto) [place] % (Auto) Lymph # [place] # Baso # Seg Neutrophils % Seg Neuts % (Manual) Lymphocytes % (Manual) Monocytes % (Manual) Basophils % (Manual) Nucleated RBC % Seg Neutrophils # Seg Neutrophils # Man Lymphocytes # (Manual) Monocytes # (Manual) Eosinophils # (Manual) Basophils # (Manual) PT INR D-Dimer ABG pH ABG pO2 ABG HCO3 ABG O2 Saturation ABG Base Excess ABG Hemoglobin Oxyhemoglobin Sodium Potassium Chloride Carbon Dioxide BUN Creatinine Glucose POC Glucose 123 H 118 H 106 H Lactic Acid Calcium Magnesium Iron TIBC Ferritin AST ALT Lactate Dehydrogenase Troponin T C-Reactive Protein Total Protein Albumin Prealbumin Cholesterol LDL Cholesterol Direct HDL Cholesterol Urine WBC (Auto) Vancomycin Trough Coronavirus (PCR) Crossmatch 07/26/19 07/27/19 07/27/19 17:02 00:28 05:16 WBC RBC Hgb Hct MCV MCH MCHC RDW Plt Count Lymph % (Auto) [place] % (Auto) Lymph # [place] # Baso # Seg Neutrophils % Seg Neuts % (Manual) Lymphocytes % (Manual) Monocytes % (Manual) Basophils % (Manual) Nucleated RBC % Seg Neutrophils # Seg Neutrophils # Man Lymphocytes # (Manual) Monocytes # (Manual) Eosinophils # (Manual) Basophils # (Manual) PT INR D-Dimer ABG pH ABG pO2 63.4 L ABG HCO3 31.3 H ABG O2 Saturation 92.7 L ABG Base Excess 6.3 H ABG Hemoglobin 7.6 L Oxyhemoglobin 90.9 L Sodium Potassium Chloride Carbon Dioxide BUN Creatinine Glucose POC Glucose 116 H 158 H Lactic Acid Calcium Magnesium Iron TIBC Ferritin AST ALT Lactate Dehydrogenase Troponin T C-Reactive Protein Total Protein Albumin Prealbumin Cholesterol LDL Cholesterol Direct HDL Cholesterol Urine WBC (Auto) Vancomycin Trough Coronavirus (PCR) Crossmatch 07/28/19 07/28/19 07/28/19 10:13 10:13 23:54 WBC 18.5 H RBC 3.20 L Hgb 8.8 L Hct 26.8 L MCV MCH 27 L MCHC RDW 19.9 H Plt Count 730 H Lymph % (Auto) [place] % (Auto) Lymph # [place] # Baso # Seg Neutrophils % Seg Neuts % (Manual) Lymphocytes % (Manual) Monocytes % (Manual) Basophils % (Manual) Nucleated RBC % Seg Neutrophils # Seg Neutrophils # Man Lymphocytes # (Manual) Monocytes # (Manual) Eosinophils # (Manual) Basophils # (Manual) PT INR D-Dimer ABG pH ABG pO2 ABG HCO3 ABG O2 Saturation ABG Base Excess ABG Hemoglobin Oxyhemoglobin Sodium Potassium 3.2 L Chloride 97.5 L Carbon Dioxide 31 H BUN Creatinine 0.5 L Glucose POC Glucose 120 H Lactic Acid Calcium Magnesium Iron TIBC Ferritin AST ALT Lactate Dehydrogenase Troponin T C-Reactive Protein Total Protein Albumin Prealbumin Cholesterol LDL Cholesterol Direct HDL Cholesterol Urine WBC (Auto) Vancomycin Trough Coronavirus (PCR) Crossmatch 07/29/19 07/29/19 07/29/19 11:57 17:43 Unknown WBC RBC Hgb Hct MCV MCH MCHC RDW Plt Count Lymph % (Auto) [place] % (Auto) Lymph # [place] # Baso # Seg Neutrophils % Seg Neuts % (Manual) Lymphocytes % (Manual) Monocytes % (Manual) Basophils % (Manual) Nucleated RBC % Seg Neutrophils # Seg Neutrophils # Man Lymphocytes # (Manual) Monocytes # (Manual) Eosinophils # (Manual) Basophils # (Manual) PT INR D-Dimer ABG pH ABG pO2 ABG HCO3 ABG O2 Saturation ABG Base Excess ABG Hemoglobin Oxyhemoglobin Sodium Potassium Chloride Carbon Dioxide BUN Creatinine Glucose POC Glucose 112 H Lactic Acid Calcium Magnesium Iron TIBC Ferritin AST ALT Lactate Dehydrogenase Troponin T C-Reactive Protein Total Protein Albumin Prealbumin Cholesterol LDL Cholesterol Direct HDL Cholesterol Urine WBC (Auto) 63.0 H Vancomycin Trough Coronavirus (PCR) Positive A Crossmatch 07/30/19 07/30/19 07/30/19 00:20 04:35 04:35 WBC 24.3 H RBC 3.12 L Hgb 8.5 L Hct 26.3 L MCV MCH 27 L MCHC RDW 20.2 H Plt Count 550 H Lymph % (Auto) [place] % (Auto) Lymph # [place] # Baso # Seg Neutrophils % Seg Neuts % (Manual) Lymphocytes % (Manual) Monocytes % (Manual) Basophils % (Manual) Nucleated RBC % Seg Neutrophils # Seg Neutrophils # Man Lymphocytes # (Manual) Monocytes # (Manual) Eosinophils # (Manual) Basophils # (Manual) PT INR D-Dimer ABG pH ABG pO2 ABG HCO3 ABG O2 Saturation ABG Base Excess ABG Hemoglobin Oxyhemoglobin Sodium Potassium 3.0 L Chloride 96.3 L Carbon Dioxide 32 H BUN Creatinine 0.5 L Glucose POC Glucose 106 H Lactic Acid Calcium Magnesium Iron TIBC Ferritin AST ALT Lactate Dehydrogenase Troponin T C-Reactive Protein Total Protein Albumin Prealbumin Cholesterol LDL Cholesterol Direct HDL Cholesterol Urine WBC (Auto) Vancomycin Trough Coronavirus (PCR) Crossmatch 07/31/19 07/31/19 07/31/19 04:42 04:42 11:33 WBC 23.8 H RBC 3.10 L Hgb 8.4 L Hct 26.1 L MCV MCH 27 L MCHC RDW 19.6 H Plt Count 561 H Lymph % (Auto) [place] % (Auto) Lymph # [place] # Baso # Seg Neutrophils % Seg Neuts % (Manual) Lymphocytes % (Manual) Monocytes % (Manual) Basophils % (Manual) Nucleated RBC % Seg Neutrophils # Seg Neutrophils # Man Lymphocytes # (Manual) Monocytes # (Manual) Eosinophils # (Manual) Basophils # (Manual) PT INR D-Dimer ABG pH ABG pO2 ABG HCO3 ABG O2 Saturation ABG Base Excess ABG Hemoglobin Oxyhemoglobin Sodium 135 L Potassium Chloride 93.9 L Carbon Dioxide 32 H BUN Creatinine 0.4 L Glucose POC Glucose 116 H Lactic Acid Calcium Magnesium Iron TIBC Ferritin AST ALT Lactate Dehydrogenase Troponin T C-Reactive Protein Total Protein Albumin 1.6 L Prealbumin 0.037 L Cholesterol LDL Cholesterol Direct HDL Cholesterol Urine WBC (Auto) Vancomycin Trough Coronavirus (PCR) Crossmatch 07/31/19 08/01/19 08/01/19 23:33 04:57 04:57 WBC 26.7 H RBC 3.12 L Hgb 8.5 L Hct 26.3 L MCV MCH 27 L MCHC RDW 19.2 H Plt Count 602 H Lymph % (Auto) [place] % (Auto) Lymph # [place] # Baso # Seg Neutrophils % Seg Neuts % (Manual) 93.0 H Lymphocytes % (Manual) 2.0 L Monocytes % (Manual) Basophils % (Manual) Nucleated RBC % Seg Neutrophils # Seg Neutrophils # Man 24.8 H Lymphocytes # (Manual) 0.5 L Monocytes # (Manual) 1.1 H Eosinophils # (Manual) Basophils # (Manual) PT INR D-Dimer ABG pH ABG pO2 ABG HCO3 ABG O2 Saturation ABG Base Excess ABG Hemoglobin Oxyhemoglobin Sodium 132 L Potassium Chloride 93.8 L Carbon Dioxide 31 H BUN Creatinine 0.3 L Glucose POC Glucose 148 H Lactic Acid Calcium 8.1 L Magnesium Iron TIBC Ferritin AST ALT Lactate Dehydrogenase Troponin T C-Reactive Protein Total Protein Albumin Prealbumin Cholesterol LDL Cholesterol Direct HDL Cholesterol Urine WBC (Auto) Vancomycin Trough Coronavirus (PCR) Crossmatch 08/01/19 08/02/19 08/02/19 12:16 00:22 05:24 WBC RBC Hgb Hct MCV MCH MCHC RDW Plt Count Lymph % (Auto) [place] % (Auto) Lymph # [place] # Baso # Seg Neutrophils % Seg Neuts % (Manual) Lymphocytes % (Manual) Monocytes % (Manual) Basophils % (Manual) Nucleated RBC % Seg Neutrophils # Seg Neutrophils # Man Lymphocytes # (Manual) Monocytes # (Manual) Eosinophils # (Manual) Basophils # (Manual) PT INR D-Dimer ABG pH ABG pO2 ABG HCO3 ABG O2 Saturation ABG Base Excess ABG Hemoglobin Oxyhemoglobin Sodium Potassium Chloride Carbon Dioxide BUN Creatinine Glucose POC Glucose 120 H 119 H 113 H Lactic Acid Calcium Magnesium Iron TIBC Ferritin AST ALT Lactate Dehydrogenase Troponin T C-Reactive Protein Total Protein Albumin Prealbumin Cholesterol LDL Cholesterol Direct HDL Cholesterol Urine WBC (Auto) Vancomycin Trough Coronavirus (PCR) Crossmatch 08/03/19 08/03/19 08/03/19 05:20 12:01 23:48 WBC RBC Hgb Hct MCV MCH MCHC RDW Plt Count Lymph % (Auto) [place] % (Auto) Lymph # [place] # Baso # Seg Neutrophils % Seg Neuts % (Manual) Lymphocytes % (Manual) Monocytes % (Manual) Basophils % (Manual) Nucleated RBC % Seg Neutrophils # Seg Neutrophils # Man Lymphocytes # (Manual) Monocytes # (Manual) Eosinophils # (Manual) Basophils # (Manual) PT INR D-Dimer ABG pH ABG pO2 ABG HCO3 ABG O2 Saturation ABG Base Excess ABG Hemoglobin Oxyhemoglobin Sodium Potassium Chloride Carbon Dioxide BUN Creatinine Glucose POC Glucose 118 H 106 H 120 H Lactic Acid Calcium Magnesium Iron TIBC Ferritin AST ALT Lactate Dehydrogenase Troponin T C-Reactive Protein Total Protein Albumin Prealbumin Cholesterol LDL Cholesterol Direct HDL Cholesterol Urine WBC (Auto) Vancomycin Trough Coronavirus (PCR) Crossmatch 08/04/19 08/04/19 08/04/19 05:38 05:38 06:29 WBC 26.1 H RBC 2.77 L Hgb 7.5 L Hct 23.2 L MCV MCH 27 L MCHC RDW 19.2 H Plt Count 648 H Lymph % (Auto) [place] % (Auto) Lymph # [place] # Baso # Seg Neutrophils % Seg Neuts % (Manual) 90.5 H Lymphocytes % (Manual) 3.5 L Monocytes % (Manual) Basophils % (Manual) Nucleated RBC % Seg Neutrophils # Seg Neutrophils # Man 23.6 H Lymphocytes # (Manual) 0.9 L Monocytes # (Manual) 1.2 H Eosinophils # (Manual) Basophils # (Manual) PT INR D-Dimer ABG pH ABG pO2 ABG HCO3 ABG O2 Saturation ABG Base Excess ABG Hemoglobin Oxyhemoglobin Sodium 132 L Potassium 3.4 L D Chloride 92.7 L Carbon Dioxide 33 H BUN Creatinine 0.2 L Glucose POC Glucose 108 H Lactic Acid Calcium 8.1 L Magnesium Iron TIBC Ferritin AST ALT Lactate Dehydrogenase Troponin T C-Reactive Protein Total Protein Albumin Prealbumin Cholesterol LDL Cholesterol Direct HDL Cholesterol Urine WBC (Auto) Vancomycin Trough Coronavirus (PCR) Crossmatch 08/04/19 08/05/19 08/05/19 12:30 04:58 04:58 WBC 21.0 H RBC 2.63 L Hgb 7.2 L Hct 21.9 L MCV 83 L MCH 27 L MCHC RDW 18.9 H Plt Count 691 H Lymph % (Auto) [place] % (Auto) Lymph # [place] # Baso # Seg Neutrophils % Seg Neuts % (Manual) 86.0 H Lymphocytes % (Manual) 3.0 L Monocytes % (Manual) 10.0 H Basophils % (Manual) Nucleated RBC % Seg Neutrophils # Seg Neutrophils # Man 18.1 H Lymphocytes # (Manual) 0.6 L Monocytes # (Manual) 2.1 H Eosinophils # (Manual) Basophils # (Manual) PT INR D-Dimer ABG pH ABG pO2 ABG HCO3 ABG O2 Saturation ABG Base Excess ABG Hemoglobin Oxyhemoglobin Sodium 134 L Potassium 3.2 L Chloride 93.2 L Carbon Dioxide 34 H BUN 8 L Creatinine 0.3 L Glucose POC Glucose 138 H Lactic Acid Calcium 8.1 L Magnesium Iron TIBC Ferritin AST ALT Lactate Dehydrogenase Troponin T C-Reactive Protein Total Protein Albumin Prealbumin Cholesterol LDL Cholesterol Direct HDL Cholesterol Urine WBC (Auto) Vancomycin Trough Coronavirus (PCR) Crossmatch 08/05/19 08/05/19 08/05/19 11:53 17:57 23:58 WBC RBC Hgb Hct MCV MCH MCHC RDW Plt Count Lymph % (Auto) [place] % (Auto) Lymph # [place] # Baso # Seg Neutrophils % Seg Neuts % (Manual) Lymphocytes % (Manual) Monocytes % (Manual) Basophils % (Manual) Nucleated RBC % Seg Neutrophils # Seg Neutrophils # Man Lymphocytes # (Manual) Monocytes # (Manual) Eosinophils # (Manual) Basophils # (Manual) PT INR D-Dimer ABG pH ABG pO2 ABG HCO3 ABG O2 Saturation ABG Base Excess ABG Hemoglobin Oxyhemoglobin Sodium Potassium Chloride Carbon Dioxide BUN Creatinine Glucose POC Glucose 106 H 111 H 116 H Lactic Acid Calcium Magnesium Iron TIBC Ferritin AST ALT Lactate Dehydrogenase Troponin T C-Reactive Protein Total Protein Albumin Prealbumin Cholesterol LDL Cholesterol Direct HDL Cholesterol Urine WBC (Auto) Vancomycin Trough Coronavirus (PCR) Crossmatch 08/06/19 08/06/19 08/06/19 04:11 04:11 06:04 WBC 20.8 H RBC 2.80 L Hgb 7.6 L Hct 23.5 L MCV MCH 27 L MCHC RDW 19.0 H Plt Count 723 H Lymph % (Auto) [place] % (Auto) Lymph # [place] # Baso # Seg Neutrophils % Seg Neuts % (Manual) 88.0 H Lymphocytes % (Manual) 3.0 L Monocytes % (Manual) Basophils % (Manual) Nucleated RBC % Seg Neutrophils # Seg Neutrophils # Man 18.3 H Lymphocytes # (Manual) 0.6 L Monocytes # (Manual) Eosinophils # (Manual) Basophils # (Manual) 0.2 H PT INR D-Dimer ABG pH ABG pO2 ABG HCO3 ABG O2 Saturation ABG Base Excess ABG Hemoglobin Oxyhemoglobin Sodium Potassium 3.4 L Chloride 95.2 L Carbon Dioxide 32 H BUN Creatinine 0.3 L Glucose POC Glucose 108 H Lactic Acid Calcium 8.2 L Magnesium Iron TIBC Ferritin AST ALT Lactate Dehydrogenase Troponin T C-Reactive Protein Total Protein Albumin Prealbumin Cholesterol LDL Cholesterol Direct HDL Cholesterol Urine WBC (Auto) Vancomycin Trough Coronavirus (PCR) Crossmatch 08/06/19 08/06/19 08/07/19 12:23 17:13 00:21 WBC RBC Hgb Hct MCV MCH MCHC RDW Plt Count Lymph % (Auto) [place] % (Auto) Lymph # [place] # Baso # Seg Neutrophils % Seg Neuts % (Manual) Lymphocytes % (Manual) Monocytes % (Manual) Basophils % (Manual) Nucleated RBC % Seg Neutrophils # Seg Neutrophils # Man Lymphocytes # (Manual) Monocytes # (Manual) Eosinophils # (Manual) Basophils # (Manual) PT INR D-Dimer ABG pH ABG pO2 ABG HCO3 ABG O2 Saturation ABG Base Excess ABG Hemoglobin Oxyhemoglobin Sodium Potassium Chloride Carbon Dioxide BUN Creatinine Glucose POC Glucose 112 H 132 H 147 H Lactic Acid Calcium Magnesium Iron TIBC Ferritin AST ALT Lactate Dehydrogenase Troponin T C-Reactive Protein Total Protein Albumin Prealbumin Cholesterol LDL Cholesterol Direct HDL Cholesterol Urine WBC (Auto) Vancomycin Trough Coronavirus (PCR) Crossmatch 08/07/19 08/07/19 08/07/19 05:16 05:23 05:23 WBC 30.3 H RBC 2.69 L Hgb 7.1 L Hct 22.2 L MCV 83 L MCH 27 L MCHC RDW 19.1 H Plt Count 650 H Lymph % (Auto) [place] % (Auto) Lymph # [place] # Baso # Seg Neutrophils % Seg Neuts % (Manual) 88.0 H Lymphocytes % (Manual) 5.0 L Monocytes % (Manual) Basophils % (Manual) Nucleated RBC % Seg Neutrophils # Seg Neutrophils # Man 26.7 H Lymphocytes # (Manual) Monocytes # (Manual) 2.1 H Eosinophils # (Manual) Basophils # (Manual) PT INR D-Dimer ABG pH ABG pO2 ABG HCO3 ABG O2 Saturation ABG Base Excess ABG Hemoglobin Oxyhemoglobin Sodium 135 L Potassium 3.4 L Chloride 95.4 L Carbon Dioxide 32 H BUN Creatinine 0.4 L Glucose 120 H POC Glucose 120 H Lactic Acid Calcium 7.7 L Magnesium Iron TIBC Ferritin AST ALT Lactate Dehydrogenase Troponin T C-Reactive Protein Total Protein Albumin Prealbumin Cholesterol LDL Cholesterol Direct HDL Cholesterol Urine WBC (Auto) Vancomycin Trough Coronavirus (PCR) Crossmatch 08/07/19 08/07/19 08/07/19 10:24 10:24 11:10 WBC RBC Hgb Hct MCV MCH MCHC RDW Plt Count Lymph % (Auto) [place] % (Auto) Lymph # [place] # Baso # Seg Neutrophils % Seg Neuts % (Manual) Lymphocytes % (Manual) Monocytes % (Manual) Basophils % (Manual) Nucleated RBC % Seg Neutrophils # Seg Neutrophils # Man Lymphocytes # (Manual) Monocytes # (Manual) Eosinophils # (Manual) Basophils # (Manual) PT INR D-Dimer 1808.06 H ABG pH ABG pO2 73.3 L ABG HCO3 33.9 H ABG O2 Saturation ABG Base Excess 9.0 H ABG Hemoglobin 6.3 L Oxyhemoglobin 94.3 L Sodium Potassium Chloride Carbon Dioxide BUN Creatinine Glucose POC Glucose Lactic Acid Calcium Magnesium Iron TIBC Ferritin AST ALT Lactate Dehydrogenase Troponin T C-Reactive Protein 11.10 H Total Protein Albumin Prealbumin Cholesterol LDL Cholesterol Direct HDL Cholesterol Urine WBC (Auto) Vancomycin Trough Coronavirus (PCR) Crossmatch 08/07/19 08/08/19 08/08/19 12:01 04:41 04:41 WBC 22.1 H RBC 2.82 L Hgb 7.7 L Hct 23.6 L MCV MCH 27 L MCHC RDW 19.1 H Plt Count 722 H Lymph % (Auto) [place] % (Auto) Lymph # [place] # Baso # Seg Neutrophils % Seg Neuts % (Manual) 90.0 H Lymphocytes % (Manual) 3.0 L Monocytes % (Manual) Basophils % (Manual) Nucleated RBC % Seg Neutrophils # Seg Neutrophils # Man 19.9 H Lymphocytes # (Manual) 0.7 L Monocytes # (Manual) 1.3 H Eosinophils # (Manual) Basophils # (Manual) PT INR D-Dimer ABG pH ABG pO2 ABG HCO3 ABG O2 Saturation ABG Base Excess ABG Hemoglobin Oxyhemoglobin Sodium 136 L Potassium Chloride 97.8 L Carbon Dioxide BUN Creatinine 0.3 L Glucose 105 H POC Glucose 130 H Lactic Acid Calcium 7.8 L Magnesium Iron TIBC Ferritin AST ALT Lactate Dehydrogenase Troponin T C-Reactive Protein Total Protein Albumin Prealbumin Cholesterol LDL Cholesterol Direct HDL Cholesterol Urine WBC (Auto) Vancomycin Trough Coronavirus (PCR) Crossmatch 08/08/19 08/08/19 08/09/19 11:46 18:35 00:12 WBC RBC Hgb Hct MCV MCH MCHC RDW Plt Count Lymph % (Auto) [place] % (Auto) Lymph # [place] # Baso # Seg Neutrophils % Seg Neuts % (Manual) Lymphocytes % (Manual) Monocytes % (Manual) Basophils % (Manual) Nucleated RBC % Seg Neutrophils # Seg Neutrophils # Man Lymphocytes # (Manual) Monocytes # (Manual) Eosinophils # (Manual) Basophils # (Manual) PT INR D-Dimer ABG pH ABG pO2 ABG HCO3 ABG O2 Saturation ABG Base Excess ABG Hemoglobin Oxyhemoglobin Sodium Potassium Chloride Carbon Dioxide BUN Creatinine Glucose POC Glucose 117 H 117 H 117 H Lactic Acid Calcium Magnesium Iron TIBC Ferritin AST ALT Lactate Dehydrogenase Troponin T C-Reactive Protein Total Protein Albumin Prealbumin Cholesterol LDL Cholesterol Direct HDL Cholesterol Urine WBC (Auto) Vancomycin Trough Coronavirus (PCR) Crossmatch 05/08/09/19 08/09/19 05:33 12:22 17:48 WBC RBC Hgb Hct MCV MCH MCHC RDW Plt Count Lymph % (Auto) [place] % (Auto) Lymph # [place] # Baso # Seg Neutrophils % Seg Neuts % (Manual) Lymphocytes % (Manual) Monocytes % (Manual) Basophils % (Manual) Nucleated RBC % Seg Neutrophils # Seg Neutrophils # Man Lymphocytes # (Manual) Monocytes # (Manual) Eosinophils # (Manual) Basophils # (Manual) PT INR D-Dimer ABG pH ABG pO2 ABG HCO3 ABG O2 Saturation ABG Base Excess ABG Hemoglobin Oxyhemoglobin Sodium Potassium Chloride Carbon Dioxide BUN Creatinine Glucose POC Glucose 119 H 133 H 123 H Lactic Acid Calcium Magnesium Iron TIBC Ferritin AST ALT Lactate Dehydrogenase Troponin T C-Reactive Protein Total Protein Albumin Prealbumin Cholesterol LDL Cholesterol Direct HDL Cholesterol Urine WBC (Auto) Vancomycin Trough Coronavirus (PCR) Crossmatch 08/09/19 08/09/19 08/10/19 17:59 18:15 00:02 WBC RBC Hgb 6.7 L Hct 20.4 L MCV MCH MCHC RDW Plt Count Lymph % (Auto) [place] % (Auto) Lymph # [place] # Baso # Seg Neutrophils % Seg Neuts % (Manual) Lymphocytes % (Manual) Monocytes % (Manual) Basophils % (Manual) Nucleated RBC % Seg Neutrophils # Seg Neutrophils # Man Lymphocytes # (Manual) Monocytes # (Manual) Eosinophils # (Manual) Basophils # (Manual) PT INR D-Dimer ABG pH ABG pO2 ABG HCO3 ABG O2 Saturation ABG Base Excess ABG Hemoglobin Oxyhemoglobin Sodium Potassium Chloride Carbon Dioxide BUN Creatinine Glucose POC Glucose 124 H Lactic Acid Calcium Magnesium Iron TIBC Ferritin AST ALT Lactate Dehydrogenase Troponin T C-Reactive Protein Total Protein Albumin Prealbumin Cholesterol LDL Cholesterol Direct HDL Cholesterol Urine WBC (Auto) Vancomycin Trough Coronavirus (PCR) Crossmatch See Detail 08/10/19 08/10/19 08/10/19 05:47 08:00 08:00 WBC 16.9 H RBC 2.94 L Hgb 8.2 L Hct 24.9 L MCV MCH MCHC RDW 17.0 H Plt Count 661 H Lymph % (Auto) [place] % (Auto) Lymph # [place] # Baso # Seg Neutrophils % Seg Neuts % (Manual) Lymphocytes % (Manual) Monocytes % (Manual) Basophils % (Manual) Nucleated RBC % Seg Neutrophils # Seg Neutrophils # Man Lymphocytes # (Manual) Monocytes # (Manual) Eosinophils # (Manual) Basophils # (Manual) PT INR D-Dimer ABG pH ABG pO2 ABG HCO3 ABG O2 Saturation ABG Base Excess ABG Hemoglobin Oxyhemoglobin Sodium Potassium Chloride Carbon Dioxide BUN Creatinine 0.3 L Glucose 116 H POC Glucose 148 H Lactic Acid Calcium 7.7 L Magnesium Iron TIBC Ferritin AST ALT Lactate Dehydrogenase Troponin T C-Reactive Protein Total Protein Albumin Prealbumin Cholesterol LDL Cholesterol Direct HDL Cholesterol Urine WBC (Auto) Vancomycin Trough Coronavirus (PCR) Crossmatch 08/10/19 08/10/19 08/10/19 12:38 18:06 23:56 WBC RBC Hgb Hct MCV MCH MCHC RDW Plt Count Lymph % (Auto) [place] % (Auto) Lymph # [place] # Baso # Seg Neutrophils % Seg Neuts % (Manual) Lymphocytes % (Manual) Monocytes % (Manual) Basophils % (Manual) Nucleated RBC % Seg Neutrophils # Seg Neutrophils # Man Lymphocytes # (Manual) Monocytes # (Manual) Eosinophils # (Manual) Basophils # (Manual) PT INR D-Dimer ABG pH ABG pO2 ABG HCO3 ABG O2 Saturation ABG Base Excess ABG Hemoglobin Oxyhemoglobin Sodium Potassium Chloride Carbon Dioxide BUN Creatinine Glucose POC Glucose 113 H 126 H 115 H Lactic Acid Calcium Magnesium Iron TIBC Ferritin AST ALT Lactate Dehydrogenase Troponin T C-Reactive Protein Total Protein Albumin Prealbumin Cholesterol LDL Cholesterol Direct HDL Cholesterol Urine WBC (Auto) Vancomycin Trough Coronavirus (PCR) Crossmatch 08/10/19 08/11/19 08/12/19 Unknown 18:10 03:30 WBC 14.4 H RBC 2.58 L Hgb 7.4 L Hct 22.1 L MCV MCH MCHC RDW 17.4 H Plt Count 786 H Lymph % (Auto) [place] % (Auto) Lymph # [place] # Baso # Seg Neutrophils % Seg Neuts % (Manual) Lymphocytes % (Manual) Monocytes % (Manual) Basophils % (Manual) Nucleated RBC % Seg Neutrophils # Seg Neutrophils # Man Lymphocytes # (Manual) Monocytes # (Manual) Eosinophils # (Manual) Basophils # (Manual) PT INR D-Dimer ABG pH ABG pO2 ABG HCO3 ABG O2 Saturation ABG Base Excess ABG Hemoglobin Oxyhemoglobin Sodium Potassium Chloride Carbon Dioxide BUN Creatinine Glucose POC Glucose 106 H Lactic Acid Calcium Magnesium Iron TIBC Ferritin AST ALT Lactate Dehydrogenase Troponin T C-Reactive Protein Total Protein Albumin Prealbumin Cholesterol LDL Cholesterol Direct HDL Cholesterol Urine WBC (Auto) Vancomycin Trough Coronavirus (PCR) Positive A Crossmatch 08/12/19 08/12/19 08/13/19 03:30 12:08 05:25 WBC RBC Hgb Hct MCV MCH MCHC RDW Plt Count Lymph % (Auto) [place] % (Auto) Lymph # [place] # Baso # Seg Neutrophils % Seg Neuts % (Manual) Lymphocytes % (Manual) Monocytes % (Manual) Basophils % (Manual) Nucleated RBC % Seg Neutrophils # Seg Neutrophils # Man Lymphocytes # (Manual) Monocytes # (Manual) Eosinophils # (Manual) Basophils # (Manual) PT INR D-Dimer ABG pH ABG pO2 ABG HCO3 ABG O2 Saturation ABG Base Excess ABG Hemoglobin Oxyhemoglobin Sodium Potassium Chloride Carbon Dioxide BUN 7 L Creatinine 0.3 L Glucose 117 H POC Glucose 112 H 126 H Lactic Acid Calcium 7.8 L Magnesium Iron TIBC Ferritin AST ALT Lactate Dehydrogenase Troponin T C-Reactive Protein Total Protein Albumin Prealbumin Cholesterol LDL Cholesterol Direct HDL Cholesterol Urine WBC (Auto) Vancomycin Trough Coronavirus (PCR) Crossmatch 08/13/19 08/13/19 08/13/19 11:36 17:10 19:06 WBC RBC Hgb Hct MCV MCH MCHC RDW Plt Count Lymph % (Auto) [place] % (Auto) Lymph # [place] # Baso # Seg Neutrophils % Seg Neuts % (Manual) Lymphocytes % (Manual) Monocytes % (Manual) Basophils % (Manual) Nucleated RBC % Seg Neutrophils # Seg Neutrophils # Man Lymphocytes # (Manual) Monocytes # (Manual) Eosinophils # (Manual) Basophils # (Manual) PT INR D-Dimer ABG pH ABG pO2 105.0 H ABG HCO3 28.5 H ABG O2 Saturation ABG Base Excess 3.5 H ABG Hemoglobin 7.8 L Oxyhemoglobin Sodium Potassium Chloride Carbon Dioxide BUN Creatinine Glucose POC Glucose 143 H 107 H Lactic Acid Calcium Magnesium Iron TIBC Ferritin AST ALT Lactate Dehydrogenase Troponin T C-Reactive Protein Total Protein Albumin Prealbumin Cholesterol LDL Cholesterol Direct HDL Cholesterol Urine WBC (Auto) Vancomycin Trough Coronavirus (PCR) Crossmatch 08/13/19 08/14/19 08/14/19 23:23 05:00 05:00 WBC 14.3 H RBC 2.76 L Hgb 7.8 L Hct 23.9 L MCV MCH MCHC RDW 18.7 H Plt Count 896 H Lymph % (Auto) [place] % (Auto) Lymph # [place] # Baso # Seg Neutrophils % Seg Neuts % (Manual) Lymphocytes % (Manual) Monocytes % (Manual) Basophils % (Manual) Nucleated RBC % Seg Neutrophils # Seg Neutrophils # Man Lymphocytes # (Manual) Monocytes # (Manual) Eosinophils # (Manual) Basophils # (Manual) PT INR D-Dimer ABG pH ABG pO2 ABG HCO3 ABG O2 Saturation ABG Base Excess ABG Hemoglobin Oxyhemoglobin Sodium Potassium Chloride Carbon Dioxide BUN 6 L Creatinine 0.3 L Glucose POC Glucose 125 H Lactic Acid Calcium 8.2 L Magnesium Iron TIBC Ferritin AST ALT Lactate Dehydrogenase Troponin T C-Reactive Protein Total Protein Albumin Prealbumin Cholesterol LDL Cholesterol Direct HDL Cholesterol Urine WBC (Auto) Vancomycin Trough Coronavirus (PCR) Crossmatch 08/14/19 08/15/19 08/15/19 05:07 00:25 05:42 WBC RBC Hgb Hct MCV MCH MCHC RDW Plt Count Lymph % (Auto) [place] % (Auto) Lymph # [place] # Baso # Seg Neutrophils % Seg Neuts % (Manual) Lymphocytes % (Manual) Monocytes % (Manual) Basophils % (Manual) Nucleated RBC % Seg Neutrophils # Seg Neutrophils # Man Lymphocytes # (Manual) Monocytes # (Manual) Eosinophils # (Manual) Basophils # (Manual) PT INR D-Dimer ABG pH ABG pO2 ABG HCO3 ABG O2 Saturation ABG Base Excess ABG Hemoglobin Oxyhemoglobin Sodium Potassium Chloride Carbon Dioxide BUN Creatinine Glucose POC Glucose 128 H 117 H 115 H Lactic Acid Calcium Magnesium Iron TIBC Ferritin AST ALT Lactate Dehydrogenase Troponin T C-Reactive Protein Total Protein Albumin Prealbumin Cholesterol LDL Cholesterol Direct HDL Cholesterol Urine WBC (Auto) Vancomycin Trough Coronavirus (PCR) Crossmatch 08/15/19 08/15/19 08/15/19 06:10 06:10 06:10 WBC 11.6 H RBC 2.68 L Hgb 7.7 L Hct 23.3 L MCV MCH MCHC RDW 19.2 H Plt Count 885 H Lymph % (Auto) [place] % (Auto) Lymph # [place] # Baso # Seg Neutrophils % Seg Neuts % (Manual) Lymphocytes % (Manual) Monocytes % (Manual) Basophils % (Manual) Nucleated RBC % Seg Neutrophils # Seg Neutrophils # Man Lymphocytes # (Manual) Monocytes # (Manual) Eosinophils # (Manual) Basophils # (Manual) PT INR D-Dimer ABG pH ABG pO2 ABG HCO3 ABG O2 Saturation ABG Base Excess ABG Hemoglobin Oxyhemoglobin Sodium Potassium Chloride Carbon Dioxide BUN 6 L Creatinine 0.3 L Glucose 107 H POC Glucose Lactic Acid Calcium 8.2 L Magnesium 1.50 L Iron TIBC Ferritin AST ALT Lactate Dehydrogenase Troponin T C-Reactive Protein Total Protein Albumin Prealbumin Cholesterol LDL Cholesterol Direct HDL Cholesterol Urine WBC (Auto) Vancomycin Trough Coronavirus (PCR) Crossmatch 08/15/19 08/16/19 08/16/19 12:12 00:05 05:00 WBC 13.3 H RBC 2.87 L Hgb 8.1 L Hct 24.9 L MCV MCH MCHC RDW 18.7 H Plt Count 962 H Lymph % (Auto) [place] % (Auto) Lymph # [place] # Baso # Seg Neutrophils % Seg Neuts % (Manual) Lymphocytes % (Manual) Monocytes % (Manual) Basophils % (Manual) Nucleated RBC % Seg Neutrophils # Seg Neutrophils # Man Lymphocytes # (Manual) Monocytes # (Manual) Eosinophils # (Manual) Basophils # (Manual) PT INR D-Dimer ABG pH ABG pO2 ABG HCO3 ABG O2 Saturation ABG Base Excess ABG Hemoglobin Oxyhemoglobin Sodium Potassium Chloride Carbon Dioxide BUN Creatinine Glucose POC Glucose 112 H 111 H Lactic Acid Calcium Magnesium Iron TIBC Ferritin AST ALT Lactate Dehydrogenase Troponin T C-Reactive Protein Total Protein Albumin Prealbumin Cholesterol LDL Cholesterol Direct HDL Cholesterol Urine WBC (Auto) Vancomycin Trough Coronavirus (PCR) Crossmatch 08/16/19 08/16/19 08/16/19 05:00 05:00 23:35 WBC RBC Hgb Hct MCV MCH MCHC RDW Plt Count Lymph % (Auto) [place] % (Auto) Lymph # [place] # Baso # Seg Neutrophils % Seg Neuts % (Manual) Lymphocytes % (Manual) Monocytes % (Manual) Basophils % (Manual) Nucleated RBC % Seg Neutrophils # Seg Neutrophils # Man Lymphocytes # (Manual) Monocytes # (Manual) Eosinophils # (Manual) Basophils # (Manual) PT INR D-Dimer ABG pH ABG pO2 ABG HCO3 ABG O2 Saturation ABG Base Excess ABG Hemoglobin Oxyhemoglobin Sodium 135 L Potassium Chloride Carbon Dioxide BUN 6 L Creatinine 0.3 L Glucose POC Glucose 108 H Lactic Acid Calcium 8.2 L Magnesium Iron TIBC Ferritin AST ALT Lactate Dehydrogenase Troponin T C-Reactive Protein 2.70 H Total Protein Albumin 2.1 L Prealbumin Cholesterol LDL Cholesterol Direct HDL Cholesterol Urine WBC (Auto) Vancomycin Trough Coronavirus (PCR) Crossmatch 08/17/19 08/17/19 08/17/19 05:15 20:20 23:42 WBC RBC Hgb Hct MCV MCH MCHC RDW Plt Count Lymph % (Auto) [place] % (Auto) Lymph # [place] # Baso # Seg Neutrophils % Seg Neuts % (Manual) Lymphocytes % (Manual) Monocytes % (Manual) Basophils % (Manual) Nucleated RBC % Seg Neutrophils # Seg Neutrophils # Man Lymphocytes # (Manual) Monocytes # (Manual) Eosinophils # (Manual) Basophils # (Manual) PT INR D-Dimer ABG pH ABG pO2 ABG HCO3 27.8 H ABG O2 Saturation ABG Base Excess ABG Hemoglobin 11.4 L Oxyhemoglobin 94.6 L Sodium Potassium Chloride Carbon Dioxide BUN Creatinine Glucose POC Glucose 138 H 132 H Lactic Acid Calcium Magnesium Iron TIBC Ferritin AST ALT Lactate Dehydrogenase Troponin T C-Reactive Protein Total Protein Albumin Prealbumin Cholesterol LDL Cholesterol Direct HDL Cholesterol Urine WBC (Auto) Vancomycin Trough Coronavirus (PCR) Crossmatch 08/18/19 08/18/19 08/18/19 06:00 06:00 12:02 WBC 19.7 H RBC 3.30 L Hgb 9.3 L Hct 28.5 L MCV MCH MCHC RDW 18.9 H Plt Count 923 H Lymph % (Auto) [place] % (Auto) Lymph # [place] # Baso # Seg Neutrophils % Seg Neuts % (Manual) Lymphocytes % (Manual) Monocytes % (Manual) Basophils % (Manual) Nucleated RBC % Seg Neutrophils # Seg Neutrophils # Man Lymphocytes # (Manual) Monocytes # (Manual) Eosinophils # (Manual) Basophils # (Manual) PT INR D-Dimer ABG pH ABG pO2 ABG HCO3 ABG O2 Saturation ABG Base Excess ABG Hemoglobin Oxyhemoglobin Sodium 136 L Potassium Chloride Carbon Dioxide BUN Creatinine 0.4 L Glucose 71 L POC Glucose 123 H Lactic Acid Calcium Magnesium Iron TIBC Ferritin AST ALT Lactate Dehydrogenase Troponin T C-Reactive Protein Total Protein Albumin Prealbumin Cholesterol LDL Cholesterol Direct HDL Cholesterol Urine WBC (Auto) Vancomycin Trough Coronavirus (PCR) Crossmatch 08/18/19 08/18/19 08/19/19 18:23 23:16 04:57 WBC RBC Hgb Hct MCV MCH MCHC RDW Plt Count Lymph % (Auto) [place] % (Auto) Lymph # [place] # Baso # Seg Neutrophils % Seg Neuts % (Manual) Lymphocytes % (Manual) Monocytes % (Manual) Basophils % (Manual) Nucleated RBC % Seg Neutrophils # Seg Neutrophils # Man Lymphocytes # (Manual) Monocytes # (Manual) Eosinophils # (Manual) Basophils # (Manual) PT INR D-Dimer ABG pH ABG pO2 ABG HCO3 ABG O2 Saturation ABG Base Excess ABG Hemoglobin Oxyhemoglobin Sodium Potassium Chloride Carbon Dioxide BUN Creatinine Glucose POC Glucose 140 H 159 H 134 H Lactic Acid Calcium Magnesium Iron TIBC Ferritin AST ALT Lactate Dehydrogenase Troponin T C-Reactive Protein Total Protein Albumin Prealbumin Cholesterol LDL Cholesterol Direct HDL Cholesterol Urine WBC (Auto) Vancomycin Trough Coronavirus (PCR) Crossmatch 08/19/19 08/19/19 08/19/19 07:44 08:17 18:15 WBC 30.5 H RBC 2.87 L Hgb 7.9 L Hct 24.5 L MCV MCH MCHC RDW 18.8 H Plt Count 772 H Lymph % (Auto) [place] % (Auto) Lymph # [place] # Baso # Seg Neutrophils % Seg Neuts % (Manual) 89.0 H Lymphocytes % (Manual) 4.0 L Monocytes % (Manual) Basophils % (Manual) 2.0 H Nucleated RBC % Seg Neutrophils # Seg Neutrophils # Man 27.1 H Lymphocytes # (Manual) Monocytes # (Manual) 0.9 H Eosinophils # (Manual) 0.6 H Basophils # (Manual) 0.6 H PT INR D-Dimer ABG pH ABG pO2 ABG HCO3 ABG O2 Saturation ABG Base Excess ABG Hemoglobin Oxyhemoglobin Sodium 136 L Potassium Chloride Carbon Dioxide BUN Creatinine 0.3 L Glucose POC Glucose 106 H Lactic Acid Calcium 8.2 L Magnesium Iron TIBC Ferritin AST ALT Lactate Dehydrogenase Troponin T C-Reactive Protein Total Protein Albumin Prealbumin Cholesterol LDL Cholesterol Direct HDL Cholesterol Urine WBC (Auto) Vancomycin Trough Coronavirus (PCR) Crossmatch 08/19/19 08/20/19 08/20/19 23:46 06:20 18:34 WBC RBC Hgb Hct MCV MCH MCHC RDW Plt Count Lymph % (Auto) [place] % (Auto) Lymph # [place] # Baso # Seg Neutrophils % Seg Neuts % (Manual) Lymphocytes % (Manual) Monocytes % (Manual) Basophils % (Manual) Nucleated RBC % Seg Neutrophils # Seg Neutrophils # Man Lymphocytes # (Manual) Monocytes # (Manual) Eosinophils # (Manual) Basophils # (Manual) PT INR D-Dimer ABG pH ABG pO2 ABG HCO3 ABG O2 Saturation ABG Base Excess ABG Hemoglobin Oxyhemoglobin Sodium Potassium Chloride Carbon Dioxide BUN Creatinine Glucose POC Glucose 144 H 115 H 125 H Lactic Acid Calcium Magnesium Iron TIBC Ferritin AST ALT Lactate Dehydrogenase Troponin T C-Reactive Protein Total Protein Albumin Prealbumin Cholesterol LDL Cholesterol Direct HDL Cholesterol Urine WBC (Auto) Vancomycin Trough Coronavirus (PCR) Crossmatch 08/20/19 08/20/19 Unknown Unknown WBC 18.7 H RBC 2.70 L Hgb 7.6 L Hct 23.1 L MCV MCH MCHC RDW 18.9 H Plt Count 690 H Lymph % (Auto) [place] % (Auto) Lymph # [place] # Baso # Seg Neutrophils % Seg Neuts % (Manual) Lymphocytes % (Manual) Monocytes % (Manual) Basophils % (Manual) Nucleated RBC % Seg Neutrophils # Seg Neutrophils # Man Lymphocytes # (Manual) Monocytes # (Manual) Eosinophils # (Manual) Basophils # (Manual) PT INR D-Dimer ABG pH ABG pO2 ABG HCO3 ABG O2 Saturation ABG Base Excess ABG Hemoglobin Oxyhemoglobin Sodium 134 L Potassium Chloride 97.9 L Carbon Dioxide BUN Creatinine 0.3 L Glucose 115 H POC Glucose Lactic Acid Calcium 8.2 L Magnesium Iron TIBC Ferritin AST ALT Lactate Dehydrogenase Troponin T C-Reactive Protein Total Protein Albumin Prealbumin Cholesterol LDL Cholesterol Direct HDL Cholesterol Urine WBC (Auto) Vancomycin Trough Coronavirus (PCR) Crossmatch Allied health notes reviewed: nursing
--- NOTE | 2019-08-21 12:41 | Progress Note ---
Assessment and Plan Cultures: 07/03/2019 urine culture: No growth 07/03/2019 Tracheal aspirate: E.coli 07/29/2019 urine culture: neg 07/30/2019 blood culture: no growth tracheal asp + Pseudomonas 08/06/2019 blood culture: no growth 08/09/2019 Wound MDR Enterobacter 08/16/2019 blood culture: no growth to date 08/20/2019 COVID-19 PCR: negative A/P: 69-year-old male with CVA, hypertension, dementia, schizophrenia, alcohol use disorder was admitted to the emergency room after being brought in by EMS with progressive shortness of breath and unresponsiveness. He was noted to have agonal breathing and a faint pulse requiring CPR. It seems patient was on hospice recently, prior to admission. #Shock, likely septic: shock resolved, remains off pressors. still intermittent fever, leukocytosis worse again: bacterial pneumonia vs sacral decubitus infection. #Nonresolving pneumonia/Cavitary pneumonia: ? abscess. Sputum +Pseudomonas. CT shows RUL pneumonia with 2.4 cm cavity and LLL pneumonia with moderate left pleural effusion. No need for thoracentesis per Pulm #Penile/scrotal and buttocks wounds: ?cellulitis #Sacral decubitus: worsening on last exam ? necrotic. Evaluated for surgery, no indications for intervention. 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 bleeding overnight s/p surgical management bedside, 08/09/2019 Wound MDR Enterobacter likely a colonizer (superficial wound cx) #UTI: per documentation initial carroll placed on 07/03, exchanged on 07/31. #Severe COVID-19 disease and pneumonia: Markers improving. Completed Plaquenil. Completed Ceftriaxone for treatment E.coli in tracheal aspirate. Repeat COVID finally negative on 08/20/2019. #Acute respiratory failure: remains on mechanical ventilation. #Multiple skin tears documented on admission #Anemia: from sacral wound bleeding Recs: Continue IV Levofloxacin Day 3 Continue wound care Repeat COVID finally negative on 08/20/2019 Overall prognosis is extremely poor Yanna Calzada MD, FACP [facility], [place], [facility] ([facility] C: [phone] O: [phone] F: [phone] Subjective Date of service: 08/21/19 Principal diagnosis: Bilateral pneumonia, severe sepsis with septic shock, encephalopathy Interval history: No fever, otherwise stable. Remains on the vent, in ICU. Repeat COVID is negative. Objective - Exam Narrative Exam: Physical Exam (reviewed in chart due to PPE conservation) Constitutional: intubated, sedated, on the vent Head, Ears, Nose: normocephalic, atraumatic Eyes: limited due to PPE conservation strategy Neck: intubated Oral: intubated Cardiovascular: limited due to PPE conservation strategy Respiratory: limited due to PPE conservation strategy GI: limited due to PPE conservation strategy Musculoskeletal: limited due to PPE conservation strategy Skin: limited due to PPE conservation strategy. Decubitus + Hem/Lymphatic: limited due to PPE conservation strategy Psych: no agitation Neurological: sedated, intubated, on the vent, exam limited - Constitutional Vitals: Vital Signs Temp Pulse Resp BP Pulse Ox 98.3 F 99 H 22 140/75 100 08/21/19 12:00 08/21/19 12:05 08/21/19 12:00 08/21/19 12:05 08/21/19 12:05 Temperature -Last 24 Hours Temperature 98.3 F Temperature 98.5 F Temperature 99.4 F Temperature 98.8 F Temperature 98.2 F Temperature 98.9 F - Labs CBC & Chem 7: 08/20/19 Unknown 08/20/19 Unknown Labs: Abnormal lab results 08/20/19 08/21/19 Range/Units 18:34 11:56 POC Glucose 125 H 116 H (70-105)
[2019-08-21] MEDS: oxyCODONE /ACETAMINOPHEN 5-325MG TAB PO PRN (14:03)
--- NOTE | 2019-08-21 18:48 | Progress Note ---
Assessment and Plan Assessment and plan: 69-year-old male with PMH of CVA with RHP, HTN, DM2, SCZ, Dementia, Alcohol use D/o, Seizure D/O, presents to the emergency department via EMS from home with progressive SOB and impending respiratory failure with an unresponsive episode. Apparently the patient was witnessed becoming unresponsive by family members. Reportedly, pt had just gotten a high dose of Hyoscamine When EMS got there, the patient was agonal breathing and had a faint pulse. No CPR was indicated per EMS. PT was intubated and received some IV fluid en route to the hospital. THe pt was under hospice- [facility] and reportedly the patient is a DNR according to the family but they were unable to provide the appropriate paperwork and to explain why the pt was discharged from hospice. The patient is bed bound and has LE atrophy and contractures. He also has history of cervical spine fracture, allegedly a fracture of some level of his back. In the ED, pt was found to have bilateral PNA on CXR and WBC was 30K. -- Acute hypoxic respiratory Failure vent dependent Unable to wean, planning trach and PEG Patient needs to have a negative COVID for the procedure Pending test --Bilateral PNA with COVID 19 infection. On ventilatory support, unable to wean Pulmonary critical following --COVid positive pneumonia with severe sepsis Possible abscess, no need for drianage per ID/pULM Received Plaquenil and cefepime, monitor off antibiotics --Recurrent fever: Afebrile last 24/48 hours --COPD with exacerbation Likely due to COVID-19 pneumonia Continue scheduled nebs --Acute metabolic encephalopathy: Unchanged despite no sedation --Septic shock: Improving hemodynamics was treated with Pressors Persistent hypotension, --Anemia, Microcytic persistent s/p total 6 unit of PRBC, today Hb 7.6 today --Pressure Ulcers: concerning for osteomylitis POA/ Scrotal ulcers buttocks, right lateral foot area wound and supportive care --Hyponatremia, resolved --DM type 2: Accu-Chek SCC tube feeding, insulin as needed --h/o HTN Essential, now hypotensive On Levophed --Seizure D/o/CVA/immobility/BIpolar D/o/SCZ Seizure precautions, antiepileptic medications --Severe PCM, TF supportive care, dietary following --patient is DNR- Called and verified information Very poor prognosis, Recommend hospice 08/16: Awaiting negative COVID test for placement of trach and PEG. In the meantime we will continue aggressive attempt to wean patient. Cultures have been reviewed and discussed with infectious disease who is managing treatment at this time. Continue wound care dressing. Multiple skin tears were noted on admission will continue to follow. Patient receiving repeat chest x-ray reviewed today shows stable bilateral pulmonary disease and no acuity noted on KUB due to persistent fever ID reviewing increases acidophil wondering if there is drug fever will follow closely. Prognosis remains guarded. 08/17: Continue current management, monitor WBC, mildly elevated. 08/18: Remains on full ventilatory support mental status still unchanged. Continue supportive care. Antibiotics adjustment per ID. Discussed with nursing staff will do some wound dressing changes today to see progression. My understanding was that the wounds did have significant bleed last time but torres ponaded. Will monitor in the setting of anemia. 08/19: Remains on full ventilatory support mental status still unchanged. Repeat COVID19 Testing to allow for Trach and Peg and transfer to LTAC. Continue supportive care. Antibiotics adjustment per ID. poor prognosis. b/l chest xray unchanged. continue wound care The high probability of a clinically significant, sudden or life threatening deterioration of the [respiratory, CVS, SENIOR SEARCH MARKETING ANALYST] system(s) required my full and direct attention, intervention and personal management. The aggregate critical care time was [38] minutes. This time is in addition to time spent performing reported procedures but includes the followi ng: [x] Data Review and interpretation [x] Patient assessment and monitoring of vital signs [x] Documentation [x] Medication orders and management COVID-19 test negative -08/20/2019 History Interval history: Patient seen and examined at bedside in ICU this morning Patient's chart, medications ,test reports ,consultants recommendations reviewed. Patient remains intubated on ventilatory support, unable to wean Vital signs noted Hospitalist Physical - Constitutional Vitals: Temp Pulse Resp BP Pulse Ox 98.6 F 109 H 16 135/70 100 08/21/19 16:00 08/21/19 18:00 08/21/19 18:00 08/21/19 18:08/21/19 18:00 General appearance: Present: mild distress, well-nourished, other (Orally intubated on vent) - EENT Eyes: Present: PERRL, EOM intact - Neck Neck: Present: supple, normal ROM - Respiratory Respiratory effort: normal Respiratory: bilateral: diminished, rhonchi, negative: rales, wheezing - Cardiovascular Rhythm: regular Heart Sounds: Present: S1 & S2 - Extremities Extremities: no ischemia, No edema - Abdominal General gastrointestinal: soft, non-tender, non-distended, normal bowel sounds - Integumentary Integumentary: Present: clear, warm - Psychiatric Psychiatric: other (On vent) - Neurologic Neurologic: other (On vent) HEART Score - HEART Score Troponin: Troponin T 0.013 ng/mL (0.00-0.029) 07/04/19 07:05 Results - Labs CBC & Chem 7: 08/20/19 Unknown 08/20/19 Unknown Labs: Laboratory Last Values WBC 18.7 K/mm3 (4.5-11.0) H 08/20/19 Unknown RBC 2.70 M/mm3 (3.65-5.03) L 08/20/19 Unknown Hgb 7.6 gm/dl (11.8-15.2) L 08/20/19 Unknown Hct 23.1 % (35.5-45.6) L 08/20/19 Unknown MCV 86 fl (84-94) 08/20/19 Unknown MCH 28 pg (28-32) 08/20/19 Unknown MCHC 33 % (32-34) 08/20/19 Unknown RDW 18.9 % (13.2-15.2) H 08/20/19 Unknown Plt Count 690 K/mm3 (140-440) H 08/20/19 Unknown Lymph % (Auto) 4.9 % (13.4-35.0) L 07/19/19 08:45 Clay % (Auto) 12.2 % (0.0-7.3) H 07/22/19 05:38 Eos % (Auto) 1.0 % (0.0-4.3) 07/19/19 08:45 Baso % (Auto) 0.5 % (0.0-1.8) 07/19/19 08:45 Lymph # 0.8 K/mm3 (1.2-5.4) L 07/19/19 08:45 Clay # 1.5 K/mm3 (0.0-0.8) H 07/22/19 05:38 Eos # 0.2 K/mm3 (0.0-0.4) 07/19/19 08:45 Baso # 0.1 K/mm3 (0.0-0.1) 07/19/19 08:45 Add Manual Diff Complete 08/19/19 08:17 Total Counted 100 08/19/19 08:17 Seg Neutrophils % 72.8 % (40.0-70.0) H 07/22/19 05:38 Seg Neuts % (Manual) 89.0 % (40.0-70.0) H 08/19/19 08:17 Band Neutrophils % 0 % 08/19/19 08:17 Lymphocytes % (Manual) 4.0 % (13.4-35.0) L 08/19/19 08:17 Reactive Lymphs % (Man) 0 % 08/19/19 08:17 Monocytes % (Manual) 3.0 % (0.0-7.3) 08/19/19 08:17 Eosinophils % (Manual) 2.0 % (0.0-4.3) 08/19/19 08:17 Basophils % (Manual) 2.0 % (0.0-1.8) H 08/19/19 08:17 Metamyelocytes % 0 % 08/19/19 08:17 Myelocytes % 0 % 08/19/19 08:17 Promyelocytes % 0 % 08/19/19 08:17 Blast Cells % 0 % 08/19/19 08:17 Nucleated RBC % Not Reportable 08/19/19 08:17 Seg Neutrophils # 9.2 K/mm3 (1.8-7.7) H 07/22/19 05:38 Seg Neutrophils # Man 27.1 K/mm3 (1.8-7.7) H 08/19/19 08:17 Band Neutrophils # 0.0 K/mm3 08/19/19 08:17 Lymphocytes # (Manual) 1.2 K/mm3 (1.2-5.4) 08/19/19 08:17 Abs React Lymphs (Man) 0.0 K/mm3 08/19/19 08:17 Monocytes # (Manual) 0.9 K/mm3 (0.0-0.8) H 08/19/19 08:17 Eosinophils # (Manual) 0.6 K/mm3 (0.0-0.4) H 08/19/19 08:17 Basophils # (Manual) 0.6 K/mm3 (0.0-0.1) H 08/19/19 08:17 Metamyelocytes # 0.0 K/mm3 08/19/19 08:17 Myelocytes # 0.0 K/mm3 08/19/19 08:17 Promyelocytes # 0.0 K/mm3 08/19/19 08:17 Blast Cells # 0.0 K/mm3 08/19/19 08:17 WBC Morphology Not Reportable 08/19/19 08:17 Hypersegmented Neuts Not Reportable 08/19/19 08:17 Hyposegmented Neuts Not Reportable 08/19/19 08:17 Hypogranular Neuts Not Reportable 08/19/19 08:17 Smudge Cells Not Reportable 08/19/19 08:17 Toxic Granulation Not Reportable 08/19/19 08:17 Toxic Vacuolation Not Reportable 08/19/19 08:17 Dohle Bodies Not Reportable 08/19/19 08:17 Pelger-Huet Anomaly Not Reportable 08/19/19 08:17 Mendy Rods Not Reportable 08/19/19 08:17 Platelet Estimate Consistent w auto 08/19/19 08:17 Clumped Platelets Not Reportable 08/19/19 08:17 Plt Clumps, EDTA Not Reportable 08/19/19 08:17 Large Platelets Not Reportable 08/19/19 08:17 Giant Platelets Not Reportable 08/19/19 08:17 Platelet Satelliting Not Reportable 08/19/19 08:17 Plt Morphology Comment Not Reportable 08/19/19 08:17 RBC Morphology Not Reportable 08/19/19 08:17 Dimorphic RBCs Not Reportable 08/19/19 08:17 Polychromasia Not Reportable 08/19/19 08:17 Hypochromasia 1+ 08/19/19 08:17 Poikilocytosis Not Reportable 08/19/19 08:17 Anisocytosis Few 08/19/19 08:17 Microcytosis Not Reportable 08/19/19 08:17 Macrocytosis Not Reportable 08/19/19 08:17 Spherocytes Not Reportable 08/19/19 08:17 Pappenheimer Bodies Not Reportable 08/19/19 08:17 Sickle Cells Not Reportable 08/19/19 08:17 Target Cells Not Reportable 08/19/19 08:17 Tear Drop Cells Not Reportable 08/19/19 08:17 Ovalocytes Not Reportable 08/19/19 08:17 Stomatocytes Few 08/01/19 04:57 Helmet Cells Not Reportable 08/19/19 08:17 [place] Bodies Not Reportable 08/19/19 08:17 [place] Rings Not Reportable 08/19/19 08:17 H[place] Cells Not Reportable 08/19/19 08:17 Bite Cells Not Reportable 08/19/19 08:17 Crenated Cell Not Reportable 08/19/19 08:17 Elliptocytes Not Reportable 08/19/19 08:17 Acanthocytes (Spur) Not Reportable 08/19/19 08:17 Rouleaux Not Reportable 08/19/19 08:17 Hemoglobin C Crystals Not Reportable 08/19/19 08:17 Schistocytes Not Reportable 08/19/19 08:17 Malaria parasites Not Reportable 08/19/19 08:17 Jeevan Bodies Not Reportable 08/19/19 08:17 Hem Pathologist Commnt No 08/19/19 08:17 PT 16.0 Sec. (12.2-14.9) H 07/03/19 22:20 INR 1.26 (0.87-1.13) H 07/03/19 22:20 D-Dimer 1808.06 ng/mlDDU (0-234) H 08/07/19 10:24 ABG pH 7.405 pH Units (7.350-7.450) 08/17/19 20:20 ABG pCO2 45.3 mm Hg 08/17/19 20:20 ABG pO2 84.2 mm Hg (80.0-90.0) 08/17/19 20:20 ABG HCO3 27.8 mmol/L (20.0-26.0) H 08/17/19 20:20 ABG O2 Saturation 96.9 % (95.0-99.0) 08/17/19 20:20 ABG O2 Content 15.2 (0.0-44) 08/17/19 20:20 ABG Base Excess 2.6 mmol/L (-2.0-3.0) 08/17/19 20:20 ABG Hemoglobin 11.4 gm/dl (14.0-18.0) L 08/17/19 20:20 ABG Carboxyhemoglobin 1.9 % (0.0-5.0) 08/17/19 20:20 ABG Methemoglobin 0.5 % (0.0-1.5) 08/17/19 20:20 Oxyhemoglobin 94.6 % (95.0-99.0) L 08/17/19 20: FiO2 28 % 08/17/19 20:20 Sodium 134 mmol/L (137-145) L 08/20/19 Unknown Potassium 4.1 mmol/L (3.6-5.0) 08/20/19 Unknown Chloride 97.9 mmol/L (98-107) L 08/20/19 Unknown Carbon Dioxide 27 mmol/L (22-30) 08/20/19 Unknown Anion Gap 13 mmol/L 08/20/19 Unknown BUN 12 mg/dL (9-20) 08/20/19 Unknown Creatinine 0.3 mg/dL (0.8-1.5) L 08/20/19 Unknown Estimated GFR > 60 ml/min 08/20/19 Unknown BUN/Creatinine Ratio 40 % 08/20/19 Unknown Glucose 115 mg/dL (75-100) H 08/20/19 Unknown POC Glucose 116 (70-105) H 08/21/19 11:56 Osmolality 268 Mosm/kg 07/05/19 04:00 Lactic Acid 1.70 mmol/L (0.7-2.0) 08/18/19 13:00 Uric Acid 7.2 mg/dL (3.5-7.6) 07/05/19 04:00 Calcium 8.2 mg/dL (8.4-10.2) L 08/20/19 Unknown Phosphorus 3.60 mg/dL (2.5-4.5) 07/05/19 04:00 Magnesium 1.50 mg/dL (1.7-2.3) L 08/15/19 06:10 Iron 9 ug/dL (49-181) L 07/04/19 07:05 TIBC 97 mcg/dL (250-450) L 07/04/19 07:05 Ferritin 360.4 ng/mL (13.0-400.0) 08/07/19 10:24 Total Bilirubin 0.20 mg/dL (0.1-1.2) 08/16/19 05:00 AST 20 units/L (5-40) 08/16/19 05:00 ALT 8 units/L (7-56) 08/16/19 05:00 Alkaline Phosphatase 77 units/L (35-129) 08/16/19 05:00 Ammonia 35.0 umol/L (25-60) 07/03/19 23:58 Lactate Dehydrogenase 144 units/L (91-180) 08/07/19 10:24 Troponin T 0.013 ng/mL (0.00-0.029) 07/04/19 07:05 C-Reactive Protein 2.70 mg/dL (0.00-1.30) H 08/16/19 05:00 Total Protein 7.0 g/dL (6.3-8.2) 08/16/19 05:00 Albumin 2.1 g/dL (3.9-5) L 08/16/19 05:00 Albumin/Globulin Ratio 0.4 % 08/16/19 05:00 Prealbumin 0.037 g/L (0.200-0.400) L 07/31/19 04:42 Triglycerides 33 mg/dL (2-149) 07/03/19 19:57 Cholesterol 47 mg/dL (50-199) L 07/03/19 19:57 LDL Cholesterol Direct 25 mg/dL (50-130) L 07/03/19 19:57 HDL Cholesterol 20 mg/dL (40-59) L 07/03/19 19:57 Cholesterol/HDL Ratio 2.35 % 07/03/19 19:57 Procalcitonin < 0.05 ng/mL (<0.15) 08/16/19 14:35 TSH 2.170 mlU/mL (0.270-4.200) 07/03/19 22:20 Total Cortisol 28.0 mcg/dL () 07/05/19 10:11 Urine Color Yellow (Yellow) 07/29/19 11:57 Urine Turbidity Clear (Clear) 07/29/19 11:57 Urine pH 7.0 (5.0-7.0) 07/29/19 11:57 Ur Specific [place] 1.012 (1.003-1.030) 07/29/19 11:57 Urine Protein <15 mg/dl mg/dL (Negative) 07/29/19 11:57 Urine Glucose (UA) Neg mg/dL (Negative) 07/29/19 11:57 Urine Ketones Neg mg/dL (Negative) 07/29/19 11:57 Urine Blood Sm (Negative) 07/29/19 11:57 Urine Nitrite Neg (Negative) 07/29/19 11:57 Urine Bilirubin Neg (Negative) 07/29/19 11:57 Urine Urobilinogen 4.0 mg/dL (<2.0) 07/29/19 11:57 Ur Leukocyte Esterase Mod (Negative) 07/29/19 11:57 Urine WBC (Auto) 63.0 /HPF (0.0-6.0) H 07/29/19 11:57 Urine RBC (Auto) 14.0 /HPF (0.0-6.0) 07/29/19 11:57 U Epithel Cells (Auto) < 1.0 /HPF (0-13.0) 07/29/19 11:57 Urine Bacteria (Auto) 1+ /HPF (Negative) 07/29/19 11:57 Urine WBC Clumps Few /HPF 07/03/19 21:13 Urine Mucus Few /HPF 07/03/19 21:13 Urine Osmolality 293 Mosm/kg 07/05/19 08:15 Vancomycin Trough 23.2 ug/mL (5.0-20.0) H 07/05/19 17:54 Urine Opiates Screen Presumptive negative 07/03/19 21:13 Urine Methadone Screen Presumptive negative 07/03/19 21:13 Ur Barbiturates Screen Presumptive negative 07/03/19 21:13 Ur Phencyclidine Scrn Presumptive negative 07/03/19 21:13 Ur Amphetamines Screen Presumptive negative 07/03/19 21:13 U Benzodiazepines Scrn Presumptive negative 07/03/19 21:13 Urine Cocaine Screen Presumptive negative 07/03/19 21:13 U Marijuana (THC) Screen Presumptive negative 07/03/19 21:13 Drugs of Abuse Note Disclamer 07/03/19 21:13 Plasma/Serum Alcohol < 0.01 % (0-0.07) 07/03/19 23:58 Coronavirus (PCR) Negative (Negative) 08/20/19 12:23 Hepatitis A IgM Ab Non-reactive (NonReactive) 08/07/19 10:24 Hep Bs Antigen Non-reactive (Negative) 08/07/19 10:24 Hep B Core IgM Ab Non-reactive (NonReactive) 08/07/19 10:24 Hepatitis C Antibody Non-reactive (NonReactive) 08/07/19 10:24 Blood Type B POSITIVE 08/09/19 17:59 Antibody Screen Negative 08/09/19 17:59 Crossmatch See Detail 08/09/19 17:59 Microbiology: Microbiology 08/16/19 14:35 Peripheral/Venous Blood Culture - Final NO GROWTH AFTER 5 DAYS 08/16/19 14:35 Peripheral/Venous Blood Culture - Final NO GROWTH AFTER 5 DAYS Wright/IV: Voiding Method Indwelling Catheter IV Catheter Type [Left Triple Lumen Cath Internal Jugular] IV Catheter Type [Left INT / Saline Lock Antecubital] IV Catheter Type [Left Forearm Peripheral IV ] IV Catheter Type [Left Upper Mid-line arm] IV Catheter Type [Right INT / Saline Lock Forearm] IV Catheter Type [Right Hand] INT / Saline Lock IV Catheter Type [Right CVL Femoral] IV Catheter Type [Left INT / Saline Lock External Jugular] Active Medications - Current Medications Current Medications: Generic Name Dose Route Start Last Admin Trade Name Freq PRN Reason Stop Dose Admin Acetaminophen 650 mg 07/04/19 04:24 08/05/19 17:40 Tylenol MD 650 mg Q6H PRN Administration Pain MILD(1-3)/Fever >100.5/MURO Acetaminophen 650 mg 07/10/19 04:00 08/20/19 15:51 Tylenol PO 650 mg Q6HR PRN Administration Pain, Mild (1-3) FEVER Lipase/Protease/Amylase 1 each 07/04/19 10:04 08/11/19 06:[address] 10,500 Unit FEEDTUBE 1 each PRN PRN Administration For Clogged Feeding Tube Aspirin 81 mg 07/05/19 10:00 08/21/19 09:15 Baby Aspirin PO 81 mg QDAY TAMMIE Administration Dextrose 50 ml 07/04/19 06:54 D50w (25gm) Syringe IV Q30MIN PRN Hypoglycemia Protocol Docusate Sodium 100 mg 08/14/19 14:00 Colace PO BID PRN CONSTIPATION Enoxaparin Sodium 40 mg 07/24/19 10:00 08/21/19 09:14 Enoxaparin SUB-Q 40 mg QDAY@1000 TAMMIE Administration Famotidine 20 mg 07/23/19 22:00 08/21/19 09:14 Pepcid PO 20 mg BID TAMMIE Administration Fentanyl 50 mcg 07/21/19 15:18 08/19/19 14:50 Sublimaze IV 50 mcg Q10MIN PRN Administration ANALGESIA Fentanyl 25 mcg 08/03/19 11:00 08/21/19 10:22 Duragesic TD 25 mcg Q3D [facility] Administration Folic Acid 1 mg 07/05/19 10:00 08/21/19 09:15 Folvite PO 1 mg QDAY TAMMIE Administration Glycopyrrolate 1 mg 08/16/19 14:00 08/21/19 13:10 Robinul PO 1 mg TID [facility] Administration Hydrophilic Ointment 1 applic 07/03/19 19:56 07/05/19 17:42 Vaseline Lip Therapy TP 1 applic Q2HR PRN Administration Dry Lips Norepinephrine 4 mg in 250 mls @ 7.5 mls/hr 07/03/19 23:00 07/20/19 01:00 Levophed Drip 4 Mg/Ns 250 Ml IV Infused TITR [facility] Titration Protocol 2 MCG/MIN Levofloxacin/Dextrose 750 mg in 150 mls @ 100 mls/hr 08/19/19 12:00 08/21/19 09:14 Levaquin 750mg/150ml IV 100 mls/hr Q24HR [facility] Administration Protocol Insulin Human Lispro 0 unit 07/07/19 12:00 08/21/19 18:31 Humalog SUB-Q Not Given Q6HR [facility] Protocol Levetiracetam 750 mg 07/06/19 11:00 08/21/19 09:14 Keppra FEEDTUBE 750 mg Q12HR [facility] Administration Metoprolol Tartrate 5 mg 07/12/19 15:08 08/19/19 15:45 Metoprolol IV 5 mg Q6HR PRN Administration Tachyarrhythmias Multi-Ingred Cream/Lotion/Oil/Oint 1 applic 07/03/19 19:56 07/05/19 13:19 Artificial Tears Ophth Oint OU 1 applic Q4HR PRN Administration Dry Eye(s) Naloxone HCl 0.1 mg 07/04/19 04:24 Naloxone IV Q2MIN PRN Res Rate </= 8 or 02 SAT < 92% Oxycodone/Acetaminophen 1 tab 07/19/19 14:17 08/21/19 14:03 Percocet 5/325 PO 1 tab Q4H PRN Administration Pain, Moderate (4-6) Scopolamine 1 each 07/10/19 11:00 08/21/19 10:22 Transderm-Scop TD 1 each Q3D TAMMIE Administration Simple Syrup 15 ml 07/04/19 10:04 07/10/19 21:56 Simple Syrup FEEDTUBE 15 ml PRN PRN Administration Hypoglycemia Simple Syrup 30 ml 07/04/19 10:04 Simple Syrup FEEDTUBE PRN PRN Hypoglycemia Sodium Bicarbonate 325 mg 07/04/19 10:04 07/20/19 10:20 Sodium Bicarbonate FEEDTUBE 325 mg PRN PRN Administration For Clogged Feeding Tube Sodium Chloride 10 ml 07/04/19 10:00 08/21/19 09:16 Sodium Chloride Flush Syringe 10 Ml IV 10 ml BID TAMMIE Administration Sodium Chloride 10 ml 07/04/19 04:24 Sodium Chloride Flush Syringe 10 Ml IV PRN PRN LINE FLUSH Sodium Hypochlorite 1 applic 07/10/19 14:00 08/21/19 10:22 Dakin's Half Strength TP 1 appful BID TAMMIE Administration Nutrition/Malnutrition Assess - Dietary Evaluation Nutrition/Malnutrition Findings: Nutrition Notes Start: 07/04/19 09:17 Freq: Status: Active Protocol: Document 08/21/19 10:32 LP (Rec: 08/21/19 10:34 LP [id number]) Nutrition Notes Initial or Follow up Reassessment Current Diagnosis Acute Kidney Injury,COPD, Decubitus(Pressure Ulcer), Diabetes,Hypertension Other Pertinent Diagnosis COVID-19 (+), pneu, seizures, schizophrenia, Buttock and R foot PU, Current Diet Osmolite 1.5 at 55ml/hr Labs/Tests Reviewed Pertinent Medications Reviewed Height 5 ft 11 in Weight 75.3 kg Anderson Body Weight (kg) 78.18 BMI 23.1 Weight Status Appropriate Subjective/Other Information Pt continues tolerating TF at goal rate.. Percent of energy/protein needs met: 97%/75% Burn Absent Trauma Absent Current % PO Negligible Minimum of two criteria No physical signs of malnutrition #2 Nutrition Diagnosis Increased nutrient needs ( specify in comment below) Diagnosis Progress(for reassessment Continues documentation) #1 Nutrition Diagnosis Inadequate oral intake Diagnosis Progress(for reassessment Continues documentation) Is patient on ventilator? Yes Is Patient Ambulatory and/or Out of Bed No REE-([facility] Sammi-confined to bed) 7512.303 Calculation Used for Recommendations [facility] Additional Notes Protein: 110-184 (1.2-2g/kg) Fluid: 1 ml/kcal or per MD Nutrition Intervention Change Diet Order: Continue TF Nutrition Support: Osmolite 1.5 at 55ml/hr Flush 150ml q4h Kcal 1,980 Protein (gm) 83 Fluid (mL) 1,006 Add Supplement/Snack (indicate name/kcal Scott BID /protein ) Provides kCal: 190 Provides Protein (gm) 5 Goal #1 TF tolerance Goal #2 TF to meet at least 75% of energy and protein needs Anticipated Discharge Needs: unable to determine at this time Follow-Up By: 08/28/19 Additional Comments Follow for stable TF
[2019-08-22] MEDS: INSULIN LISPRO 100 UNIT/ML SUB-Q SCH ×2 (00:24→06:31)
[2019-08-22] MEDS: SODIUM HYPOCHLORITE, DAKIN'S 1/2 STRENGTH (0.25%) 473 ML TOPICAL SOLN TP SCH ×2 (09:25→22:05)
[2019-08-22] MEDS: ENOXAPARIN 40 MG/0.4 ML INJ SUB-Q SCH (09:26)
[2019-08-22] MEDS: levETIRAcetam 500 MG/5 ML ORAL LIQD FEEDTUBE SCH ×2 (09:26→22:04)
[2019-08-22] MEDS: FOLIC ACID 1 MG TAB PO SCH (09:27)
[2019-08-22] MEDS: ASPIRIN 81 MG TAB CHEW PO SCH (09:27)
[2019-08-22] MEDS: GLYCOPYRROLATE 1 MG TAB PO SCH ×3 (09:27→22:04)
[2019-08-22] MEDS: FAMOTIDINE 20 MG TAB PO SCH ×2 (09:27→22:04)
--- NOTE | 2019-08-22 11:50 | Progress Note ---
Assessment and Plan Cultures: 07/03/2019 urine culture: No growth 07/03/2019 Tracheal aspirate: E.coli 07/29/2019 urine culture: neg 07/30/2019 blood culture: no growth tracheal asp + Pseudomonas 08/06/2019 blood culture: no growth 08/09/2019 Wound MDR Enterobacter 08/16/2019 blood culture: no growth to date 08/20/2019 COVID-19 PCR: negative A/P: 69-year-old male with CVA, hypertension, dementia, schizophrenia, alcohol use disorder was admitted to the emergency room after being brought in by EMS with progressive shortness of breath and unresponsiveness. He was noted to have agonal breathing and a faint pulse requiring CPR. It seems patient was on hospice recently, prior to admission. #Shock, likely septic: shock resolved, remains off pressors. still intermittent fever, leukocytosis worse again: bacterial pneumonia vs sacral decubitus infection. #Nonresolving pneumonia/Cavitary pneumonia: ? abscess. Sputum +Pseudomonas. CT shows RUL pneumonia with 2.4 cm cavity and LLL pneumonia with moderate left pleural effusion. No need for thoracentesis per Pulm #Penile/scrotal and buttocks wounds: ?cellulitis #Sacral decubitus: worsening on last exam ? necrotic. Evaluated for surgery, no indications for intervention. 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 bleeding overnight s/p surgical management bedside, 08/09/2019 Wound MDR Enterobacter likely a colonizer (superficial wound cx) #UTI: per documentation initial carroll placed on 07/03, exchanged on 07/31. #Severe COVID-19 disease and pneumonia: Markers improving. Completed Plaquenil. Completed Ceftriaxone for treatment E.coli in tracheal aspirate. Repeat COVID finally negative on 08/20/2019. #Acute respiratory failure: remains on mechanical ventilation. #Multiple skin tears documented on admission #Anemia: from sacral wound bleeding Recs: Continue IV Levofloxacin Day 4 Recheck CBC in AM Continue wound care Repeat COVID finally negative on 08/20/2019 Overall prognosis is extremely poor Yanna Calzada MD, FACP [facility] ([facility] C: [phone] O: [phone] F: [phone] Subjective Date of service: 08/22/19 Principal diagnosis: Bilateral pneumonia, severe sepsis with septic shock, encephalopathy Interval history: No fever, low grade temperature, otherwise status quo. Remains on the vent, in ICU. Repeat COVID is negative. Objective - Exam Narrative Exam: Physical Exam (reviewed in chart due to PPE conservation) Constitutional: intubated, sedated, on the vent Head, Ears, Nose: normocephalic, atraumatic Eyes: limited due to PPE conservation strategy Neck: intubated Oral: intubated Cardiovascular: limited due to PPE conservation strategy Respiratory: limited due to PPE conservation strategy GI: limited due to PPE conservation strategy Musculoskeletal: limited due to PPE conservation strategy Skin: limited due to PPE conservation strategy. Decubitus + Hem/Lymphatic: limited due to PPE conservation strategy Psych: no agitation Neurological: sedated, intubated, on the vent, exam limited - Constitutional Vitals: Vital Signs Temp Pulse Resp BP Pulse Ox 98.7 F 93 H 17 131/69 100 08/22/19 08:00 08/22/19 11:14 08/22/19 11:14 08/22/19 11:14 08/22/19 11:14 Temperature -Last 24 Hours Temperature 98.7 F Temperature 98.7 F Temperature 99.9 F Temperature 100.3 F Temperature 99.6 F Temperature 98.6 F Temperature 98.3 F - Labs CBC & Chem 7: 08/20/19 Unknown 08/20/19 Unknown Labs: Abnormal lab results 08/21/19 08/21/19 08/22/19 Range/Units 11:56 18:14 00:31 POC Glucose 116 H 113 H 106 H (70-105) 08/22/19 Range/Units 05:53 POC Glucose 109 H (70-105)
--- NOTE | 2019-08-22 18:01 | Event Note ---
Date: 08/22/19 Trach/PEG scheduled for August 30
--- NOTE | 2019-08-22 18:43 | Progress Note ---
Assessment and Plan Assessment and plan: -- Acute hypoxic respiratory Failure vent dependent Unable to wean, planning trach and PEG Patient needs to have a negative COVID for the procedure Patient's COVID-19 test is negative[08/20/2019] --Bilateral PNA with COVID 19 infection. On ventilatory support, unable to wean Pulmonary critical following --COVid positive pneumonia with severe sepsis Possible abscess, no need for drianage per ID/pULM Received Plaquenil and cefepime, monitor off antibiotics --Recurrent fever: Afebrile last 24/48 hours --COPD with exacerbation Likely due to COVID-19 pneumonia Continue scheduled nebs --Acute metabolic encephalopathy: Unchanged despite no sedation --Septic shock: Improving hemodynamics was treated with Pressors Persistent hypotension, --Anemia, Microcytic persistent s/p total 6 unit of PRBC, today Hb 7.6 today --Pressure Ulcers: concerning for osteomylitis POA/ Scrotal ulcers buttocks, right lateral foot area wound and supportive care --Hyponatremia, resolved --DM type 2: Accu-Chek SCC tube feeding, insulin as needed --h/o HTN Essential, now hypotensive On Levophed --Seizure D/o/CVA/immobility/BIpolar D/o/SCZ Seizure precautions, antiepileptic medications --Severe PCM, TF supportive care, dietary following --patient is DNR- Called and verified information Very poor prognosis, Recommend hospice 08/16: Awaiting negative COVID test for placement of trach and PEG. In the meantime we will continue aggressive attempt to wean patient. Cultures have been reviewed and discussed with infectious disease who is managing treatment at this time. Continue wound care dressing. Multiple skin tears were noted on admission will continue to follow. Patient receiving repeat chest x-ray reviewed today shows stable bilateral pulmonary disease and no acuity noted on KUB due to persistent fever ID reviewing increases acidophil wondering if there is drug fever will follow closely. Prognosis remains guarded. 08/17: Continue current management, monitor WBC, mildly elevated. 08/18: Remains on full ventilatory support mental status still unchanged. Letha nue supportive care. Antibiotics adjustment per ID. Discussed with nursing staff will do some wound dressing changes today to see progression. My understanding was that the wounds did have significant bleed last time but tamponaded. Will monitor in the setting of anemia. 08/19: Remains on full ventilatory support mental status still unchanged. Repeat COVID19 Testing to allow for Trach and Peg and transfer to LTAC. Continue supportive care. Antibiotics adjustment per ID. poor prognosis. b/l chest xray unchanged. continue wound care 08/21/2019: COVID test negative,reconsult surgery for possible trach and PEG , remains intubated on vent 08/22/2019: Surgery reevaluated, scheduled trach and PEG for 08/31/2019 .patient is on vent support The high probability of a clinically significant, sudden or life threatening deterioration of the [respiratory, CVS, MENTAL HEALTH ORDERLY] system(s) required my full and direct attention, intervention and personal management. The aggregate critical care time was [38] minutes. This time is in addition to time spent performing reported procedures but includes the following: [x] Data Review and interpretation [x] Patient assessment and monitoring of vital signs [x] Documentation [x] Medication orders and management History Interval history: Patient seen at the bedside in isolation unit Isolation precautions and PPE protocols followed Patient intubated on vent, unable to wean Awaiting trach and PEG on 08/31/2019 per surgery Vital signs noted Hospitalist Physical - Constitutional Vitals: Temp Pulse Resp BP Pulse Ox 100.1 F H 117 H 17 127/85 100 08/22/19 15:17 08/22/19 16:00 08/22/19 11:14 08/22/19 16:00 08/22/19 16:00 General appearance: Present: mild distress, well-nourished, other (Orally intubated on vent) - EENT Eyes: Present: PERRL, EOM intact - Neck Neck: Present: supple, normal ROM - Respiratory Respiratory effort: normal Respiratory: bilateral: diminished, rhonchi, negative: rales, wheezing - Cardiovascular Rhythm: regular Heart Sounds: Present: S1 & S2 - Extremities Extremities: no ischemia, No edema - Abdominal General gastrointestinal: soft, non-tender, non-distended, normal bowel sounds - Integumentary Integumentary: Present: clear, warm - Psychiatric Psychiatric: other (Intubated on vent) - Neurologic Neurologic: other (Noncommunicative on vent) HEART Score - HEART Score Troponin: Troponin T 0.013 ng/mL (0.00-0.029) 07/04/19 07:05 Results - Labs CBC & Chem 7: 08/23/19 06:00 08/20/19 Unknown Labs: Laboratory Last Values WBC 18.7 K/mm3 (4.5-11.0) H 08/20/19 Unknown RBC 2.70 M/mm3 (3.65-5.03) L 08/20/19 Unknown Hgb 7.6 gm/dl (11.8-15.2) L 08/20/19 Unknown Hct 23.1 % (35.5-45.6) L 08/20/19 Unknown MCV 86 fl (84-94) 08/20/19 Unknown MCH 28 pg (28-32) 08/20/19 Unknown MCHC 33 % (32-34) 08/20/19 Unknown RDW 18.9 % (13.2-15.2) H 08/20/19 Unknown Plt Count 690 K/mm3 (140-440) H 08/20/19 Unknown Lymph % (Auto) 4.9 % (13.4-35.0) L 07/19/19 08:45 Wythe % (Auto) 12.2 % (0.0-7.3) H 07/22/19 05:38 Eos % (Auto) 1.0 % (0.0-4.3) 07/19/19 08:45 Baso % (Auto) 0.5 % (0.0-1.8) 07/19/19 08:45 Lymph # 0.8 K/mm3 (1.2-5.4) L 07/19/19 08:45 Wythe # 1.5 K/mm3 (0.0-0.8) H 07/22/19 05:38 Eos # 0.2 K/mm3 (0.0-0.4) 07/19/19 08:45 Baso # 0.1 K/mm3 (0.0-0.1) 07/19/19 08:45 Add Manual Diff Complete 08/19/19 08:17 Total Counted 100 08/19/19 08:17 Seg Neutrophils % 72.8 % (40.0-70.0) H 07/22/19 05:38 Seg Neuts % (Manual) 89.0 % (40.0-70.0) H 08/19/19 08:17 Band Neutrophils % 0 % 08/19/19 08:17 Lymphocytes % (Manual) 4.0 % (13.4-35.0) L 08/19/19 08:17 Reactive Lymphs % (Man) 0 % 08/19/19 08:17 Monocytes % (Manual) 3.0 % (0.0-7.3) 08/19/19 08:17 Eosinophils % (Manual) 2.0 % (0.0-4.3) 08/19/19 08:17 Basophils % (Manual) 2.0 % (0.0-1.8) H 08/19/19 08:17 Metamyelocytes % 0 % 08/19/19 08:17 Myelocytes % 0 % 08/19/19 08:17 Promyelocytes % 0 % 08/19/19 08:17 Blast Cells % 0 % 08/19/19 08:17 Nucleated RBC % Not Reportable 08/19/19 08:17 Seg Neutrophils # 9.2 K/mm3 (1.8-7.7) H 07/22/19 05:38 Seg Neutrophils # Man 27.1 K/mm3 (1.8-7.7) H 08/19/19 08:17 Band Neutrophils # 0.0 K/mm3 08/19/19 08:17 Lymphocytes # (Manual) 1.2 K/mm3 (1.2-5.4) 08/19/19 08:17 Abs React Lymphs (Man) 0.0 K/mm3 08/19/19 08:17 Monocytes # (Manual) 0.9 K/mm3 (0.0-0.8) H 08/19/19 08:17 Eosinophils # (Manual) 0.6 K/mm3 (0.0-0.4) H 08/19/19 08:17 Basophils # (Manual) 0.6 K/mm3 (0.0-0.1) H 08/19/19 08:17 Metamyelocytes # 0.0 K/mm3 08/19/19 08:17 Myelocytes # 0.0 K/mm3 08/19/19 08:17 Promyelocytes # 0.0 K/mm3 08/19/19 08:17 Blast Cells # 0.0 K/mm3 08/19/19 08:17 WBC Morphology Not Reportable 08/19/19 08:17 Hypersegmented Neuts Not Reportable 08/19/19 08:17 Hyposegmented Neuts Not Reportable 08/19/19 08:17 Hypogranular Neuts Not Reportable 08/19/19 08:17 Smudge Cells Not Reportable 08/19/19 08:17 Toxic Granulation Not Reportable 08/19/19 08:17 Toxic Vacuolation Not Reportable 08/19/19 08:17 Dohle Bodies Not Reportable 08/19/19 08:17 Pelger-Huet Anomaly Not Reportable 08/19/19 08:17 Mendy Rods Not Reportable 08/19/19 08:17 Platelet Estimate Consistent w auto 08/19/19 08:17 Clumped Platelets Not Reportable 08/19/19 08:17 Plt Clumps, EDTA Not Reportable 08/19/19 08:17 Large Platelets Not Reportable 08/19/19 08:17 Giant Platelets Not Reportable 08/19/19 08:17 Platelet Satelliting Not Reportable 08/19/19 08:17 Plt Morphology Comment Not Reportable 08/19/19 08:17 RBC Morphology Not Reportable 08/19/19 08:17 Dimorphic RBCs Not Reportable 08/19/19 08:17 Polychromasia Not Reportable 08/19/19 08:17 Hypochromasia 1+ 08/19/19 08:17 Poikilocytosis Not Reportable 08/19/19 08:17 Anisocytosis Few 08/19/19 08:17 Microcytosis Not Reportable 08/19/19 08:17 Macrocytosis Not Reportable 08/19/19 08:17 Spherocytes Not Reportable 08/19/19 08:17 Pappenheimer Bodies Not Reportable 08/19/19 08:17 Sickle Cells Not Reportable 08/19/19 08:17 Target Cells Not Reportable 08/19/19 08:17 Tear Drop Cells Not Reportable 08/19/19 08:17 Ovalocytes Not Reportable 08/19/19 08:17 Stomatocytes Few 08/01/19 04:57 Helmet Cells Not Reportable 08/19/19 08:17 Altman-Nikolai Bodies Not Reportable 08/19/19 08:17 Murdock Rings Not Reportable 08/19/19 08:17 Joanne Cells Not Reportable 08/19/19 08:17 Bite Cells Not Reportable 08/19/19 08:17 Crenated Cell Not Reportable 08/19/19 08:17 Elliptocytes Not Reportable 08/19/19 08:17 Acanthocytes (Spur) Not Reportable 08/19/19 08:17 Rouleaux Not Reportable 08/19/19 08:17 Hemoglobin C Crystals Not Reportable 08/19/19 08:17 Schistocytes Not Reportable 08/19/19 08:17 Malaria parasites Not Reportable 08/19/19 08:17 Jeevan Bodies Not Reportable 08/19/19 08:17 Hem Pathologist Commnt No 08/19/19 08:17 PT 16.0 Sec. (12.2-14.9) H 07/03/19 22:20 INR 1.26 (0.87-1.13) H 07/03/19 22:20 D-Dimer 1808.06 ng/mlDDU (0-234) H 08/07/19 10:24 ABG pH 7.405 pH Units (7.350-7.450) 08/17/19 20:20 ABG pCO2 45.3 mm Hg 08/17/19 20:20 ABG pO2 84.2 mm Hg (80.0-90.0) 08/17/19 20:20 ABG HCO3 27.8 mmol/L (20.0-26.0) H 08/17/19 20:20 ABG O2 Saturation 96.9 % (95.0-99.0) 08/17/19 20:20 ABG O2 Content 15.2 (0.0-44) 08/17/19 20:20 ABG Base Excess 2.6 mmol/L (-2.0-3.0) 08/17/19 20:20 ABG Hemoglobin 11.4 gm/dl (14.0-18.0) L 08/17/19 20:20 ABG Carboxyhemoglobin 1.9 % (0.0-5.0) 08/17/19 20:20 ABG Methemoglobin 0.5 % (0.0-1.5) 08/17/19 20:20 Oxyhemoglobin 94.6 % (95.0-99.0) L 08/17/19 20:20 FiO2 28 % 08/17/19 20:20 Sodium 134 mmol/L (137-145) L 08/20/19 Unknown Potassium 4.1 mmol/L (3.6-5.0) 08/20/19 Unknown Chloride 97.9 mmol/L (98-107) L 08/20/19 Unknown Carbon Dioxide 27 mmol/L (22-30) 08/20/19 Unknown Anion Gap 13 mmol/L 08/20/19 Unknown BUN 12 mg/dL (9-20) 08/20/19 Unknown Creatinine 0.3 mg/dL (0.8-1.5) L 08/20/19 Unknown Estimated GFR > 60 ml/min 08/20/19 Unknown BUN/Creatinine Ratio 40 % 08/20/19 Unknown Glucose 115 mg/dL (75-100) H 08/20/19 Unknown POC Glucose 130 (70-105) H 08/22/19 18:35 Osmolality 268 Mosm/kg 07/05/19 04:00 Lactic Acid 1.70 mmol/L (0.7-2.0) 08/18/19 13:00 Uric Acid 7.2 mg/dL (3.5-7.6) 07/05/19 04:00 Calcium 8.2 mg/dL (8.4-10.2) L 08/20/19 Unknown Phosphorus 3.60 mg/dL (2.5-4.5) 07/05/19 04:00 Magnesium 1.50 mg/dL (1.7-2.3) L 08/15/19 06:10 Iron 9 ug/dL (49-181) L 07/04/19 07:05 TIBC 97 mcg/dL (250-450) L 07/04/19 07:05 Ferritin 360.4 ng/mL (13.0-400.0) 08/07/19 10:24 Total Bilirubin 0.20 mg/dL (0.1-1.2) 08/16/19 05:00 AST 20 units/L (5-40) 08/16/19 05:00 ALT 8 units/L (7-56) 08/16/19 05:00 Alkaline Phosphatase 77 units/L (35-129) 08/16/19 05:00 Ammonia 35.0 umol/L (25-60) 07/03/19 23:58 Lactate Dehydrogenase 144 units/L (91-180) 08/07/19 10:24 Troponin T 0.013 ng/mL (0.00-0.029) 07/04/19 07:05 C-Reactive Protein 2.70 mg/dL (0.00-1.30) H 08/16/19 05:00 Total Protein 7.0 g/dL (6.3-8.2) 08/16/19 05:00 Albumin 2.1 g/dL (3.9-5) L 08/16/19 05:00 Albumin/Globulin Ratio 0.4 % 08/16/19 05:00 Prealbumin 0.037 g/L (0.200-0.400) L 07/31/19 04:42 Triglycerides 33 mg/dL (2-149) 07/03/19 19:57 Cholesterol 47 mg/dL (50-199) L 07/03/19 19:57 LDL Cholesterol Direct 25 mg/dL (50-130) L 07/03/19 19:57 HDL Cholesterol 20 mg/dL (40-59) L 07/03/19 19:57 Cholesterol/HDL Ratio 2.35 % 07/03/19 19:57 Procalcitonin < 0.05 ng/mL (<0.15) 08/16/19 14:35 TSH 2.170 mlU/mL (0.270-4.200) 07/03/19 22:20 Total Cortisol 28.0 mcg/dL () 07/05/19 10:11 Urine Color Yellow (Yellow) 07/29/19 11:57 Urine Turbidity Clear (Clear) 07/29/19 11:57 Urine pH 7.0 (5.0-7.0) 07/29/19 11:57 Ur Specific Sigurd 1.012 (1.003-1.030) 07/29/19 11:57 Urine Protein <15 mg/dl mg/dL (Negative) 07/29/19 11:57 Urine Glucose (UA) Neg mg/dL (Negative) 07/29/19 11:57 Urine Ketones Neg mg/dL (Negative) 07/29/19 11:57 Urine Blood Sm (Negative) 07/29/19 11:57 Urine Nitrite Neg (Negative) 07/29/19 11:57 Urine Bilirubin Neg (Negative) 07/29/19 11:57 Urine Urobilinogen 4.0 mg/dL (<2.0) 07/29/19 11:57 Ur Leukocyte Esterase Mod (Negative) 07/29/19 11:57 Urine WBC (Auto) 63.0 /HPF (0.0-6.0) H 07/29/19 11:57 Urine RBC (Auto) 14.0 /HPF (0.0-6.0) 07/29/19 11:57 U Epithel Cells (Auto) < 1.0 /HPF (0-13.0) 07/29/19 11:57 Urine Bacteria (Auto) 1+ /HPF (Negative) 07/29/19 11:57 Urine WBC Clumps Few /HPF 07/03/19 21:13 Urine Mucus Few /HPF 07/03/19 21:13 Urine Osmolality 293 Mosm/kg 07/05/19 08:15 Vancomycin Trough 23.2 ug/mL (5.0-20.0) H 07/05/19 17:54 Urine Opiates Screen Presumptive negative 07/03/19 21:13 Urine Methadone Screen Presumptive negative 07/03/19 21:13 Ur Barbiturates Screen Presumptive negative 07/03/19 21:13 Ur Phencyclidine Scrn Presumptive negative 07/03/19 21:13 Ur Amphetamines Screen Presumptive negative 07/03/19 21:13 U Benzodiazepines Scrn Presumptive negative 07/03/19 21:13 Urine Cocaine Screen Presumptive negative 07/03/19 21:13 U Marijuana (THC) Screen Presumptive negative 07/03/19 21:13 Drugs of Abuse Note Disclamer 07/03/19 21:13 Plasma/Serum Alcohol < 0.01 % (0-0.07) 07/03/19 23:58 Coronavirus (PCR) Negative (Negative) 08/20/19 12:23 Hepatitis A IgM Ab Non-reactive (NonReactive) 08/07/19 10:24 Hep Bs Antigen Non-reactive (Negative) 08/07/19 10:24 Hep B Core IgM Ab Non-reactive (NonReactive) 08/07/19 10:24 Hepatitis C Antibody Non-reactive (NonReactive) 08/07/19 10:24 Blood Type B POSITIVE 08/09/19 17:59 Antibody Screen Negative 08/09/19 17:59 Crossmatch See Detail 08/09/19 17:59 Microbiology: Microbiology 08/16/19 14:35 Peripheral/Venous Blood Culture - Final NO GROWTH AFTER 5 DAYS 08/16/19 14:35 Peripheral/Venous Blood Culture - Final NO GROWTH AFTER 5 DAYS Wright/IV: Voiding Method Indwelling Catheter IV Catheter Type [Left Triple Lumen Cath Internal Jugular] IV Catheter Type [Left INT / Saline Lock Antecubital] IV Catheter Type [Left Forearm Peripheral IV ] IV Catheter Type [Left Upper Mid-line arm] IV Catheter Type [Right INT / Saline Lock Forearm] IV Catheter Type [Right Hand] INT / Saline Lock IV Catheter Type [Right CVL Femoral] IV Catheter Type [Left INT / Saline Lock External Jugular] Active Medications - Current Medications Current Medications: Generic Name Dose Route Start Last Admin Trade Name Freq PRN Reason Stop Dose Admin Acetaminophen 650 mg 07/04/19 04:24 08/05/19 17:40 Tylenol AK 650 mg Q6H PRN Administration Pain MILD(1-3)/Fever >100.5/MURO Acetaminophen 650 mg 07/10/19 04:00 08/20/19 15:51 Tylenol PO 650 mg Q6HR PRN Administration Pain, Mild (1-3) FEVER Lipase/Protease/Amylase 1 each 07/04/19 10:04 08/11/19 06:03 Pancreazcon Gilbert 10,500 Unit FEEDTUBE 1 each PRN PRN Administration For Clogged Feeding Tube Aspirin 81 mg 07/05/19 10:00 08/22/19 09:27 Baby Aspirin PO 81 mg QDAY TAMMIE Administration Dextrose 50 ml 07/04/19 06:54 D50w (25gm) Syringe IV Q30MIN PRN Hypoglycemia Protocol Docusate Sodium 100 mg 08/14/19 14:00 Colace PO BID PRN CONSTIPATION Enoxaparin Sodium 40 mg 07/24/19 10:00 08/22/19 09:26 Enoxaparin SUB-Q 40 mg QDAY@1000 TAMMIE Administration Famotidine 20 mg 07/23/19 22:00 08/22/19 09:27 Pepcid PO 20 mg BID TAMMIE Administration Fentanyl 50 mcg 07/21/19 15:18 08/19/19 14:50 Sublimaze IV 50 mcg Q10MIN PRN Administration ANALGESIA Fentanyl 25 mcg 08/03/19 11:00 08/21/19 10:22 Duragesic TD 25 mcg Q3D TAMMIE Administration Folic Acid 1 mg 07/05/19 10:00 08/22/19 09:27 Folvite PO 1 mg QDAY TAMMIE Administration Glycopyrrolate 1 mg 08/16/19 14:00 08/22/19 15:11 Robinul PO 1 mg TID TAMMIE Administration Hydrophilic Ointment 1 applic 07/03/19 19:56 07/05/19 17:42 Vaseline Lip Therapy TP 1 applic Q2HR PRN Administration Dry Lips Norepinephrine 4 mg in 250 mls @ 7.5 mls/hr 07/03/19 23:00 07/20/19 01:00 Levophed Drip 4 Mg/Ns 250 Ml IV Infused TITR TAMMIE Titration Protocol 2 MCG/MIN Levofloxacin/Dextrose 750 mg in 150 mls @ 100 mls/hr 08/19/19 12:00 08/22/19 09:26 Levaquin 750mg/150ml IV 100 mls/hr Q24HR TAMMIE Administration Protocol Insulin Human Lispro 0 unit 07/07/19 12:00 08/22/19 06:31 Humalog SUB-Q Not Given Q6HR [facility] Protocol Levetiracetam 750 mg 07/06/19 11:00 08/22/19 09:26 Keppra FEEDTUBE 750 mg Q12HR TAMMIE Administration Metoprolol Tartrate 5 mg 07/12/19 15:08 08/19/19 15:45 Metoprolol IV 5 mg Q6HR PRN Administration Tachyarrhythmias Multi-Ingred Cream/Lotion/Oil/Oint 1 applic 07/03/19 19:56 07/05/19 13:19 Artificial Tears Ophth Oint OU 1 applic Q4HR PRN Administration Dry Eye(s) Naloxone HCl 0.1 mg 07/04/19 04:24 Naloxone IV Q2MIN PRN Res Rate </= 8 or 02 SAT < 92% Oxycodone/Acetaminophen 1 tab 07/19/19 14:17 08/21/19 14:03 Percocet 5/325 PO 1 tab Q4H PRN Administration Pain, Moderate (4-6) Scopolamine 1 each 07/10/19 11:00 08/21/19 10:22 Transderm-Scop TD 1 each Q3D TAMMIE Administration Simple Syrup 15 ml 07/04/19 10:04 07/10/19 21:56 Simple Syrup FEEDTUBE 15 ml PRN PRN Administration Hypoglycemia Simple Syrup 30 ml 07/04/19 10:04 Simple Syrup FEEDTUBE PRN PRN Hypoglycemia Sodium Bicarbonate 325 mg 07/04/19 10:04 07/20/19 10:20 Sodium Bicarbonate FEEDTUBE 325 mg PRN PRN Administration For Clogged Feeding Tube Sodium Chloride 10 ml 07/04/19 10:00 08/22/19 09:27 Sodium Chloride Flush Syringe 10 Ml IV 10 ml BID TAMMIE Administration Sodium Chloride 10 ml 07/04/19 04:24 Sodium Chloride Flush Syringe 10 Ml IV PRN PRN LINE FLUSH Sodium Hypochlorite 1 applic 07/10/19 14:00 08/22/19 09:25 Dakin's Half Strength TP 1 appful BID TAMMIE Administration Nutrition/Malnutrition Assess - Dietary Evaluation Nutrition/Malnutrition Findings: Nutrition Notes Start: 07/04/19 09:17 Freq: Status: Active Protocol: Document 08/21/19 10:32 LP (Rec: 08/21/19 10:34 LP [id number]) Nutrition Notes Initial or Follow up Reassessment Current Diagnosis Acute Kidney Injury,COPD, Decubitus(Pressure Ulcer), Diabetes,Hypertension Other Pertinent Diagnosis COVID-19 (+), pneu, seizures, schizophrenia, Buttock and R foot PU, Current Diet Osmolite 1.5 at 55ml/hr Labs/Tests Reviewed Pertinent Medications Reviewed Height 5 ft 11 in Weight 75.3 kg Purvis Body Weight (kg) 78.18 BMI 23.1 Weight Status Appropriate Subjective/Other Information Pt continues tolerating TF at goal rate.. Percent of energy/protein needs met: 97%/75% Burn Absent Trauma Absent Current % PO Negligible Minimum of two criteria No physical signs of malnutrition #2 Nutrition Diagnosis Increased nutrient needs ( specify in comment below) Diagnosis Progress(for reassessment Continues documentation) #1 Nutrition Diagnosis Inadequate oral intake Diagnosis Progress(for reassessment Continues documentation) Is patient on ventilator? Yes Is Patient Ambulatory and/or Out of Bed No REE-([facility]-confined to bed) [phone] Calculation Used for Recommendations [facility] Additional Notes Protein: 110-184 (1.2-2g/kg) Fluid: 1 ml/kcal or per MD Nutrition Intervention Change Diet Order: Continue TF Nutrition Support: Osmolite 1.5 at 55ml/hr Flush 150ml q4h Kcal 1,980 Protein (gm) 83 Fluid (mL) 1,006 Add Supplement/Snack (indicate name/kcal Scott BID /protein ) Provides kCal: 190 Provides Protein (gm) 5 Goal #1 TF tolerance Goal #2 TF to meet at least 75% of energy and protein needs Anticipated Discharge Needs: unable to determine at this time Follow-Up By: 08/28/19 Additional Comments Follow for stable TF
[2019-08-23] MEDS: INSULIN LISPRO 100 UNIT/ML SUB-Q SCH ×5 (00:08→17:48)
[2019-08-23] MEDS: ACETAMINOPHEN 325 MG/10.15 ML ORAL LIQD UNIT DOSE PO PRN (00:30)
[2019-08-23 06:44] LABS: Basophils # (Auto) 0.1 K/mm3 (0.0-0.1); Basophils % (Auto) 0.7 % (0.0-1.8); Eosinophils # (Auto) 0.3 K/mm3 (0.0-0.4); Eosinophils % (Auto) 2.8 % (0.0-4.3); Hematocrit 24.6 % (35.5-45.6); Lymphocytes # (Auto) 1.4 K/mm3 (1.2-5.4); Lymphocytes % (Auto) 11.7 % (13.4-35.0); Mean Corpuscular HGB Conc 33 % (32-34); Mean Corpuscular Volume 85 fl (84-94); Monocytes # (Auto) 1.1 K/mm3 (0.0-0.8); Monocytes % (Auto) 9.2 % (0.0-7.3); Platelet Count 661 K/mm3 (140-440); Red Blood Count 2.92 M/mm3 (3.65-5.03); Red Cell Distribution Width 18.5 % (13.2-15.2)
[2019-08-23] MEDS: levETIRAcetam 500 MG/5 ML ORAL LIQD FEEDTUBE SCH ×2 (09:05→21:48)
[2019-08-23] MEDS: FAMOTIDINE 20 MG TAB PO SCH ×2 (09:05→21:49)
[2019-08-23] MEDS: GLYCOPYRROLATE 1 MG TAB PO SCH ×3 (09:05→20:55)
[2019-08-23] MEDS: FOLIC ACID 1 MG TAB PO SCH (09:05)
[2019-08-23] MEDS: ASPIRIN 81 MG TAB CHEW PO SCH (09:06)
[2019-08-23] MEDS: ENOXAPARIN 40 MG/0.4 ML INJ SUB-Q SCH (09:06)
--- NOTE | 2019-08-23 10:01 | Progress Note ---
Assessment and Plan Assessment and plan: -- Acute hypoxic respiratory Failure vent dependent Unable to wean, planning trach and PEG Patient needs to have a negative COVID for the procedure Patient's COVID-19 test is negative[08/20/2019] --Bilateral PNA with COVID 19 infection. On ventilatory support, unable to wean Pulmonary critical following --COVid positive pneumonia with severe sepsis Possible abscess, no need for drianage per ID/pULM Received Plaquenil and cefepime, monitor off antibiotics --Recurrent fever: Afebrile last 24/48 hours --COPD with exacerbation Likely due to COVID-19 pneumonia Continue scheduled nebs --Acute metabolic encephalopathy: Unchanged despite no sedation --Septic shock: Improving hemodynamics was treated with Pressors Persistent hypotension, --Anemia, Microcytic persistent s/p total 6 unit of PRBC, today Hb 7.6 today --Pressure Ulcers: concerning for osteomylitis POA/ Scrotal ulcers buttocks, right lateral foot area wound and supportive care --Hyponatremia, resolved --DM type 2: Accu-Chek SCC tube feeding, insulin as needed --h/o HTN Essential, now hypotensive On Levophed --Seizure D/o/CVA/immobility/BIpolar D/o/SCZ Seizure precautions, antiepileptic medications --Severe PCM, TF supportive care, dietary following --patient is DNR- Called and verified information Very poor prognosis, Recommend hospice 08/16: Awaiting negative COVID test for placement of trach and PEG. In the meantime we will continue aggressive attempt to wean patient. Cultures have been reviewed and discussed with infectious disease who is managing treatment at this time. Continue wound care dressing. Multiple skin tears were noted on admission will continue to follow. Patient receiving repeat chest x-ray reviewed today shows stable bilateral pulmonary disease and no acuity noted on KUB due to persistent fever ID reviewing increases acidophil wondering if there is drug fever will follow closely. Prognosis remains guarded. 08/17: Continue current management, monitor WBC, mildly elevated. 08/18: Remains on full ventilatory support mental status still unchanged. Letha nue supportive care. Antibiotics adjustment per ID. Discussed with nursing staff will do some wound dressing changes today to see progression. My understanding was that the wounds did have significant bleed last time but tamponaded. Will monitor in the setting of anemia. 08/19: Remains on full ventilatory support mental status still unchanged. Repeat COVID19 Testing to allow for Trach and Peg and transfer to LTAC. Continue supportive care. Antibiotics adjustment per ID. poor prognosis. b/l chest xray unchanged. continue wound care 08/21/2019: COVID test negative,reconsult surgery for possible trach and PEG , remains intubated on vent 08/22/2019: Surgery reevaluated, scheduled trach and PEG for 08/31/2019 .patient is on vent support 08/23/2019; unable to wean, awaiting trach and PEG, clinically no change The high probability of a clinically significant, sudden or life threatening deterioration of the [respiratory, CVS, PULVERIZER] system(s) required my full and direct attention, intervention and personal management. The aggregate critical care time was [32] minutes. This time is in addition to time spent performing reported procedures but includes the follo wing: [x] Data Review and interpretation [x] Patient assessment and monitoring of vital signs [x] Documentation [x] Medication orders and management History Interval history: Patient seen and examined at bedside in isolation Isolation precautions, PPE protocols followed Patient intubated on vent Most recent COVID test is negative Scheduled for trach and PEG on 08/31/2019 per surgery Vital signs reviewed Hospitalist Physical - Constitutional Vitals: Temp Pulse Resp BP Pulse Ox 98.2 F 102 H 22 125/70 100 08/23/19 08:00 08/23/19 09:00 08/23/19 09:00 08/23/19 09:00 08/23/19 09:00 General appearance: Present: mild distress, well-nourished, other (On vent) - EENT Eyes: Present: PERRL, EOM intact - Neck Neck: Present: supple, normal ROM - Respiratory Respiratory effort: normal Respiratory: bilateral: diminished, rhonchi, negative: rales, wheezing - Cardiovascular Rhythm: regular Heart Sounds: Present: S1 & S2 - Extremities Extremities: no ischemia, No edema - Abdominal General gastrointestinal: soft, non-tender, non-distended, normal bowel sounds - Integumentary Integumentary: Present: clear, warm - Psychiatric Psychiatric: other (Noncommunicative on vent) - Neurologic Neurologic: other (On vent) HEART Score - HEART Score Troponin: Troponin T 0.013 ng/mL (0.00-0.029) 07/04/19 07:05 Results - Labs CBC & Chem 7: 08/23/19 06:00 08/20/19 Unknown Labs: Laboratory Last Values WBC 12.3 K/mm3 (4.5-11.0) H 08/23/19 06:00 RBC 2.92 M/mm3 (3.65-5.03) L 08/23/19 06:00 Hgb 8.0 gm/dl (11.8-15.2) L 08/23/19 06:00 Hct 24.6 % (35.5-45.6) L 08/23/19 06:00 MCV 85 fl (84-94) 08/23/19 06:00 MCH 28 pg (28-32) 08/23/19 06:00 MCHC 33 % (32-34) 08/23/19 06:00 RDW 18.5 % (13.2-15.2) H 08/23/19 06:00 Plt Count 661 K/mm3 (140-440) H 08/23/19 06:00 Lymph % (Auto) 11.7 % (13.4-35.0) L 08/23/19 06:00 [place] % (Auto) 9.2 % (0.0-7.3) H 08/23/19 06:00 Eos % (Auto) 2.8 % (0.0-4.3) 08/23/19 06:00 Baso % (Auto) 0.7 % (0.0-1.8) 08/23/19 06:00 Lymph # 1.4 K/mm3 (1.2-5.4) 08/23/19 06:00 [place] # 1.1 K/mm3 (0.0-0.8) H 08/23/19 06:00 Eos # 0.3 K/mm3 (0.0-0.4) 08/23/19 06:00 Baso # 0.1 K/mm3 (0.0-0.1) 08/23/19 06:00 Add Manual Diff Complete 08/19/19 08:17 Total Counted 100 08/19/19 08:17 Seg Neutrophils % 75.6 % (40.0-70.0) H 08/23/19 06:00 Seg Neuts % (Manual) 89.0 % (40.0-70.0) H 08/19/19 08:17 Band Neutrophils % 0 % 08/19/19 08:17 Lymphocytes % (Manual) 4.0 % (13.4-35.0) L 08/19/19 08:17 Reactive Lymphs % (Man) 0 % 08/19/19 08:17 Monocytes % (Manual) 3.0 % (0.0-7.3) 08/19/19 08:17 Eosinophils % (Manual) 2.0 % (0.0-4.3) 08/19/19 08:17 Basophils % (Manual) 2.0 % (0.0-1.8) H 08/19/19 08:17 Metamyelocytes % 0 % 08/19/19 08:17 Myelocytes % 0 % 08/19/19 08:17 Promyelocytes % 0 % 08/19/19 08:17 Blast Cells % 0 % 08/19/19 08:17 Nucleated RBC % Not Reportable 08/19/19 08:17 Seg Neutrophils # 9.3 K/mm3 (1.8-7.7) H 08/23/19 06:00 Seg Neutrophils # Man 27.1 K/mm3 (1.8-7.7) H 08/19/19 08:17 Band Neutrophils # 0.0 K/mm3 08/19/19 08:17 Lymphocytes # (Manual) 1.2 K/mm3 (1.2-5.4) 08/19/19 08:17 Abs React Lymphs (Man) 0.0 K/mm3 08/19/19 08:17 Monocytes # (Manual) 0.9 K/mm3 (0.0-0.8) H 08/19/19 08:17 Eosinophils # (Manual) 0.6 K/mm3 (0.0-0.4) H 08/19/19 08:17 Basophils # (Manual) 0.6 K/mm3 (0.0-0.1) H 08/19/19 08:17 Metamyelocytes # 0.0 K/mm3 08/19/19 08:17 Myelocytes # 0.0 K/mm3 08/19/19 08:17 Promyelocytes # 0.0 K/mm3 08/19/19 08:17 Blast Cells # 0.0 K/mm3 08/19/19 08:17 WBC Morphology Not Reportable 08/19/19 08:17 Hypersegmented Neuts Not Reportable 08/19/19 08:17 Hyposegmented Neuts Not Reportable 08/19/19 08:17 Hypogranular Neuts Not Reportable 08/19/19 08:17 Smudge Cells Not Reportable 08/19/19 08:17 Toxic Granulation Not Reportable 08/19/19 08:17 Toxic Vacuolation Not Reportable 08/19/19 08:17 Dohle Bodies Not Reportable 08/19/19 08:17 Pelger-Huet Anomaly Not Reportable 08/19/19 08:17 Mendy Rods Not Reportable 08/19/19 08:17 Platelet Estimate Consistent w auto 08/19/19 08:17 Clumped Platelets Not Reportable 08/19/19 08:17 Plt Clumps, EDTA Not Reportable 08/19/19 08:17 Large Platelets Not Reportable 08/19/19 08:17 Giant Platelets Not Reportable 08/19/19 08:17 Platelet Satelliting Not Reportable 08/19/19 08:17 Plt Morphology Comment Not Reportable 08/19/19 08:17 RBC Morphology Not Reportable 08/19/19 08:17 Dimorphic RBCs Not Reportable 08/19/19 08:17 Polychromasia Not Reportable 08/19/19 08:17 Hypochromasia 1+ 08/19/19 08:17 Poikilocytosis Not Reportable 08/19/19 08:17 Anisocytosis Few 08/19/19 08:17 Microcytosis Not Reportable 08/19/19 08:17 Macrocytosis Not Reportable 08/19/19 08:17 Spherocytes Not Reportable 08/19/19 08:17 Pappenheimer Bodies Not Reportable 08/19/19 08:17 Sickle Cells Not Reportable 08/19/19 08:17 Target Cells Not Reportable 08/19/19 08:17 Tear Drop Cells Not Reportable 08/19/19 08:17 Ovalocytes Not Reportable 08/19/19 08:17 Stomatocytes Few 08/01/19 04:57 Helmet Cells Not Reportable 08/19/19 08:17 [place] Bodies Not Reportable 08/19/19 08:17 [place] Rings Not Reportable 08/19/19 08:17 [place] Cells Not Reportable 08/19/19 08:17 Bite Cells Not Reportable 08/19/19 08:17 Crenated Cell Not Reportable 08/19/19 08:17 Elliptocytes Not Reportable 08/19/19 08:17 Acanthocytes (Spur) Not Reportable 08/19/19 08:17 Rouleaux Not Reportable 08/19/19 08:17 Hemoglobin C Crystals Not Reportable 08/19/19 08:17 Schistocytes Not Reportable 08/19/19 08:17 Malaria parasites Not Reportable 08/19/19 08:17 Jeevan Bodies Not Reportable 08/19/19 08:17 Hem Pathologist Commnt No 08/19/19 08:17 PT 16.0 Sec. (12.2-14.9) H 07/03/19 22:20 INR 1.26 (0.87-1.13) H 07/03/19 22:20 D-Dimer 1808.06 ng/mlDDU (0-234) H 08/07/19 10:24 ABG pH 7.405 pH Units (7.350-7.450) 08/17/19 20:20 ABG pCO2 45.3 mm Hg 08/17/19 20:20 ABG pO2 84.2 mm Hg (80.0-90.0) 08/17/19 20:20 ABG HCO3 27.8 mmol/L (20.0-26.0) H 08/17/19 20:20 ABG O2 Saturation 96.9 % (95.0-99.0) 08/17/19 20:20 ABG O2 Content 15.2 (0.0-44) 08/17/19 20:20 ABG Base Excess 2.6 mmol/L (-2.0-3.0) 08/17/19 20:20 ABG Hemoglobin 11.4 gm/dl (14.0-18.0) L 08/17/19 20:20 ABG Carboxyhemoglobin 1.9 % (0.0-5.0) 08/17/19 20:20 ABG Methemoglobin 0.5 % (0.0-1.5) 08/17/19 20:20 Oxyhemoglobin 94.6 % (95.0-99.0) L 08/17/19 20:20 FiO2 28 % 08/17/19 20:20 Sodium 134 mmol/L (137-145) L 08/20/19 Unknown Potassium 4.1 mmol/L (3.6-5.0) 08/20/19 Unknown Chloride 97.9 mmol/L (98-107) L 08/20/19 Unknown Carbon Dioxide 27 mmol/L (22-30) 08/20/19 Unknown Anion Gap 13 mmol/L 08/20/19 Unknown BUN 12 mg/dL (9-20) 08/20/19 Unknown Creatinine 0.3 mg/dL (0.8-1.5) L 08/20/19 Unknown Estimated GFR > 60 ml/min 08/20/19 Unknown BUN/Creatinine Ratio 40 % 08/20/19 Unknown Glucose 115 mg/dL (75-100) H 08/20/19 Unknown POC Glucose 117 (70-105) H 08/23/19 06:09 Osmolality 268 Mosm/kg 07/05/19 04:00 Lactic Acid 1.70 mmol/L (0.7-2.0) 08/18/19 13:00 Uric Acid 7.2 mg/dL (3.5-7.6) 07/05/19 04:00 Calcium 8.2 mg/dL (8.4-10.2) L 08/20/19 Unknown Phosphorus 3.60 mg/dL (2.5-4.5) 07/05/19 04:00 Magnesium 1.50 mg/dL (1.7-2.3) L 08/15/19 06:10 Iron 9 ug/dL (49-181) L 07/04/19 07:05 TIBC 97 mcg/dL (250-450) L 07/04/19 07:05 Ferritin 360.4 ng/mL (13.0-400.0) 08/07/19 10:24 Total Bilirubin 0.20 mg/dL (0.1-1.2) 08/16/19 05:00 AST 20 units/L (5-40) 08/16/19 05:00 ALT 8 units/L (7-56) 08/16/19 05:00 Alkaline Phosphatase 77 units/L (35-129) 08/16/19 05:00 Ammonia 35.0 umol/L (25-60) 07/03/19 23:58 Lactate Dehydrogenase 144 units/L (91-180) 08/07/19 10:24 Troponin T 0.013 ng/mL (0.00-0.029) 07/04/19 07:05 C-Reactive Protein 2.70 mg/dL (0.00-1.30) H 08/16/19 05:00 Total Protein 7.0 g/dL (6.3-8.2) 08/16/19 05:00 Albumin 2.1 g/dL (3.9-5) L 08/16/19 05:00 Albumin/Globulin Ratio 0.4 % 08/16/19 05:00 Prealbumin 0.037 g/L (0.200-0.400) L 07/31/19 04:42 Triglycerides 33 mg/dL (2-149) 07/03/19 19:57 Cholesterol 47 mg/dL (50-199) L 07/03/19 19:57 LDL Cholesterol Direct 25 mg/dL (50-130) L 07/03/19 19:57 HDL Cholesterol 20 mg/dL (40-59) L 07/03/19 19:57 Cholesterol/HDL Ratio 2.35 % 07/03/19 19:57 Procalcitonin < 0.05 ng/mL (<0.15) 08/16/19 14:35 TSH 2.170 mlU/mL (0.270-4.200) 07/03/19 22:20 Total Cortisol 28.0 mcg/dL () 07/05/19 10:11 Urine Color Yellow (Yellow) 07/29/19 11:57 Urine Turbidity Clear (Clear) 07/29/19 11:57 Urine pH 7.0 (5.0-7.0) 07/29/19 11:57 Ur Specific [place] 1.012 (1.003-1.030) 07/29/19 11:57 Urine Protein <15 mg/dl mg/dL (Negative) 07/29/19 11:57 Urine Glucose (UA) Neg mg/dL (Negative) 07/29/19 11:57 Urine Ketones Neg mg/dL (Negative) 07/29/19 11:57 Urine Blood Sm (Negative) 07/29/19 11:57 Urine Nitrite Neg (Negative) 07/29/19 11:57 Urine Bilirubin Neg (Negative) 07/29/19 11:57 Urine Urobilinogen 4.0 mg/dL (<2.0) 07/29/19 11:57 Ur Leukocyte Esterase Mod (Negative) 07/29/19 11:57 Urine WBC (Auto) 63.0 /HPF (0.0-6.0) H 07/29/19 11:57 Urine RBC (Auto) 14.0 /HPF (0.0-6.0) 07/29/19 11:57 U Epithel Cells (Auto) < 1.0 /HPF (0-13.0) 07/29/19 11:57 Urine Bacteria (Auto) 1+ /HPF (Negative) 07/29/19 11:57 Urine WBC Clumps Few /HPF 07/03/19 21:13 Urine Mucus Few /HPF 07/03/19 21:13 Urine Osmolality 293 Mosm/kg 07/05/19 08:15 Vancomycin Trough 23.2 ug/mL (5.0-20.0) H 07/05/19 17:54 Urine Opiates Screen Presumptive negative 07/03/19 21:13 Urine Methadone Screen Presumptive negative 07/03/19 21:13 Ur Barbiturates Screen Presumptive negative 07/03/19 21:13 Ur Phencyclidine Scrn Presumptive negative 07/03/19 21:13 Ur Amphetamines Screen Presumptive negative 07/03/19 21:13 U Benzodiazepines Scrn Presumptive negative 07/03/19 21:13 Urine Cocaine Screen Presumptive negative 07/03/19 21:13 U Marijuana (THC) Screen Presumptive negative 07/03/19 21:13 Drugs of Abuse Note Disclamer 07/03/19 21:13 Plasma/Serum Alcohol < 0.01 % (0-0.07) 07/03/19 23:58 Coronavirus (PCR) Negative (Negative) 08/20/19 12:23 Hepatitis A IgM Ab Non-reactive (NonReactive) 08/07/19 10:24 Hep Bs Antigen Non-reactive (Negative) 08/07/19 10:24 Hep B Core IgM Ab Non-reactive (NonReactive) 08/07/19 10:24 Hepatitis C Antibody Non-reactive (NonReactive) 08/07/19 10:24 Blood Type B POSITIVE 08/09/19 17:59 Antibody Screen Negative 08/09/19 17:59 Crossmatch See Detail 08/09/19 17:59 Wright/IV: Voiding Method Indwelling Catheter IV Catheter Type [Left Triple Lumen Cath Internal Jugular] IV Catheter Type [Left INT / Saline Lock Antecubital] IV Catheter Type [Left Forearm Peripheral IV ] IV Catheter Type [Left Upper Mid-line arm] IV Catheter Type [Right INT / Saline Lock Forearm] IV Catheter Type [Right Hand] INT / Saline Lock IV Catheter Type [Right CVL Femoral] IV Catheter Type [Left INT / Saline Lock External Jugular] Active Medications - Current Medications Current Medications: Generic Name Dose Route Start Last Admin Trade Name Freq PRN Reason Stop Dose Admin Acetaminophen 650 mg 07/04/19 04:24 08/05/19 17:40 Tylenol MI 650 mg Q6H PRN Administration Pain MILD(1-3)/Fever >100.5/MURO Acetaminophen 650 mg 07/10/19 04:00 08/23/19 00:30 Tylenol PO 650 mg Q6HR PRN Administration Pain, Mild (1-3) FEVER Lipase/Protease/Amylase 1 each 07/04/19 10:04 08/11/19 06:03 Pancreaze 10,500 Unit FEEDTUBE 1 each PRN PRN Administration For Clogged Feeding Tube Aspirin 81 mg 07/05/19 10:00 08/23/19 09:06 Baby Aspirin PO 81 mg QDAY TAMMIE Administration Dextrose 50 ml 07/04/19 06:54 D50w (25gm) Syringe IV Q30MIN PRN Hypoglycemia Protocol Docusate Sodium 100 mg 08/14/19 14:00 Colace PO BID PRN CONSTIPATION Enoxaparin Sodium 40 mg 07/24/19 10:00 08/23/19 09:06 Enoxaparin SUB-Q 40 mg QDAY@1000 TAMMIE Administration Famotidine 20 mg 07/23/19 22:00 08/23/19 09:05 Pepcid PO 20 mg BID TAMMIE Administration Fentanyl 50 mcg 07/21/19 15:18 08/19/19 14:50 Sublimaze IV 50 mcg Q10MIN PRN Administration ANALGESIA Fentanyl 25 mcg 08/03/19 11:00 08/21/19 10:22 Duragesic TD 25 mcg Q3D TAMMIE Administration Folic Acid 1 mg 07/05/19 10:00 08/23/19 09:05 Folvite PO 1 mg QDAY TAMMIE Administration Glycopyrrolate 1 mg 08/16/19 14:00 08/23/19 09:05 Robinul PO 1 mg TID TAMMIE Administration Hydrophilic Ointment 1 applic 07/03/19 19:56 07/05/19 17:42 Vaseline Lip Therapy TP 1 applic Q2HR PRN Administration Dry Lips Norepinephrine 4 mg in 250 mls @ 7.5 mls/hr 07/03/19 23:00 07/20/19 01:00 Levophed Drip 4 Mg/Ns 250 Ml IV Infused TITR TAMMIE Titration Protocol 2 MCG/MIN Levofloxacin/Dextrose 750 mg in 150 mls @ 100 mls/hr 08/19/19 12:00 08/23/19 09:05 Levaquin 750mg/150ml IV 100 mls/hr Q24HR TAMMIE Administration Protocol Insulin Human Lispro 0 unit 07/07/19 12:00 08/23/19 07:53 Humalog SUB-Q Not Given Q6HR [facility] Protocol Levetiracetam 750 mg 07/06/19 11:00 08/23/19 09:05 Keppra FEEDTUBE 750 mg Q12HR TAMMIE Administration Metoprolol Tartrate 5 mg 07/12/19 15:08 08/19/19 15:45 Metoprolol IV 5 mg Q6HR PRN Administration Tachyarrhythmias Multi-Ingred Cream/Lotion/Oil/Oint 1 applic 07/03/19 19:56 07/05/19 13:19 Artificial Tears Ophth Oint OU 1 applic Q4HR PRN Administration Dry Eye(s) Naloxone HCl 0.1 mg 07/04/19 04:24 Naloxone IV Q2MIN PRN Res Rate </= 8 or 02 SAT < 92% Oxycodone/Acetaminophen 1 tab 07/19/19 14:17 08/21/19 14:03 Percocet 5/325 PO 1 tab Q4H PRN Administration Pain, Moderate (4-6) Scopolamine 1 each 07/10/19 11:00 08/21/19 10:22 Transderm-Scop TD 1 each Q3D TAMMIE Administration Simple Syrup 15 ml 07/04/19 10:04 07/10/19 21:56 Simple Syrup FEEDTUBE 15 ml PRN PRN Administration Hypoglycemia Simple Syrup 30 ml 07/04/19 10:04 Simple Syrup FEEDTUBE PRN PRN Hypoglycemia Sodium Bicarbonate 325 mg 07/04/19 10:04 07/20/19 10:20 Sodium Bicarbonate FEEDTUBE 325 mg PRN PRN Administration For Clogged Feeding Tube Sodium Chloride 10 ml 07/04/19 10:00 08/23/19 09:06 Sodium Chloride Flush Syringe 10 Ml IV 10 ml BID TAMMIE Administration Sodium Chloride 10 ml 07/04/19 04:24 Sodium Chloride Flush Syringe 10 Ml IV PRN PRN LINE FLUSH Sodium Hypochlorite 1 applic 07/10/19 14:00 08/22/19 22:05 Dakin's Half Strength TP 1 appful BID TAMMIE Administration Nutrition/Malnutrition Assess - Dietary Evaluation Nutrition/Malnutrition Findings: Nutrition Notes Start: 07/04/19 09:17 Freq: Status: Active Protocol: Document 08/21/19 10:32 LP (Rec: 08/21/19 10:34 LP [id number]) Nutrition Notes Initial or Follow up Reassessment Current Diagnosis Acute Kidney Injury,COPD, Decubitus(Pressure Ulcer), Diabetes,Hypertension Other Pertinent Diagnosis COVID-19 (+), pneu, seizures, schizophrenia, Buttock and R foot PU, Current Diet Osmolite 1.5 at 55ml/hr Labs/Tests Reviewed Pertinent Medications Reviewed Height 5 ft 11 in Weight 75.3 kg [place] Body Weight (kg) 78.18 BMI 23.1 Weight Status Appropriate Subjective/Other Information Pt continues tolerating TF at goal rate.. Percent of energy/protein needs met: 97%/75% Burn Absent Trauma Absent Current % PO Negligible Minimum of two criteria No physical signs of malnutrition #2 Nutrition Diagnosis Increased nutrient needs ( specify in comment below) Diagnosis Progress(for reassessment Continues documentation) #1 Nutrition Diagnosis Inadequate oral intake Diagnosis Progress(for reassessment Continues documentation) Is patient on ventilator? Yes Is Patient Ambulatory and/or Out of Bed No [facility] 9626.038 Calculation Used for Recommendations [facility] Additional Notes Protein: 110-184 (1.2-2g/kg) Fluid: 1 ml/kcal or per MD Nutrition Intervention Change Diet Order: Continue TF Nutrition Support: Osmolite 1.5 at 55ml/hr Flush 150ml q4h Kcal 1,980 Protein (gm) 83 Fluid (mL) 1,006 Add Supplement/Snack (indicate name/kcal Scott BID /protein ) Provides kCal: 190 Provides Protein (gm) 5 Goal #1 TF tolerance Goal #2 TF to meet at least 75% of energy and protein needs Anticipated Discharge Needs: unable to determine at this time Follow-Up By: 08/28/19 Additional Comments Follow for stable TF
[2019-08-23] MEDS: SODIUM HYPOCHLORITE, DAKIN'S 1/2 STRENGTH (0.25%) 473 ML TOPICAL SOLN TP SCH ×2 (10:48→21:50)
--- NOTE | 2019-08-23 11:10 | Progress Note ---
Assessment and Plan Acute hypoxemic respiratory failure on MVS Severe sepsis with Shock. Bilateral Pneumonia. PUI coronavirus-19 infection. Acute possibly on chronic encephalopathy. Oropharyngeal dysphagia. Anemia. Decubitus ulcers Diabetes type 2. Hypertension. Leukocytosis. Anemia that is microcytic. Elevated serum transaminases. [id number] metabolic acidosis. Lactic acidosis. Severe protein-calorie malnutrition ( has advised us she wants a tracheostomy and continued aggressive care) - repeat COVID-19 negative - continue daily SBT's; if he shows significant tolerance of SBT's over an extended few day periods a trial of extubation may still be considered especially now he is COVID negative - no new issues otherwise, continue care as below otherwise - prn CXR's and ABG's at this point - surgery evaluation ongoing for tracheostomy placement (await negative COVID test) - continue care as below otherwise - continue fentanyl gtt for pain control / sedation - continue to wean supplemental oxygen for target O2 sat's > 90% acutely - continue daily SAT's and SBT assessment as tolerated - VAP bundle addressed - continue lung protective strategies - continue bronchodilators with pulmonary hygiene per RT - wean per pulmonary driven protocols otherwise - prn Levophed for target MAP > 65 mmHg - continue airborne and contact COVID-19 precautions - COVID-19 test positive - complete anti-infectives and de-escalate per ID recommendations - continue wound care per WCT - sedation prn for target RASS 0 to -1 - accuchecks with glycemic control per SSI (While critically ill target blood glucose of 140-180 mg/dL; avoid hypoglycemia) - to avoid benzodiazepine's, reduce the possibility of delirium - prn analgesia per CPOT score - Maintenance of sleep-wake cycle, avoid delirium - continue enteral nutritional support at goal rate as tolerated - G.I. & VTE prophylaxis - PT/OT/ROM exercises - continue mobility protocols for pressure ulcer prophylaxis - Monitor hemodynamics closely - continue other care per attending / other consultants - discharge planning ongoing concurrently .... Re-evaluate in am & prn CONDITION: CRITICAL PROGNOSIS: GUARDED CODE STATUS: FULL CODE The high probability of a clinically significant, sudden or life-threatening deterioration of the [respiratory & cardiovascular] system(s) required my full and direct attention, intervention and personal management. The aggregate critical care time was [31] minutes without overlap. Time includes spent on; [x] Data Review and interpretation [x] Patient assessment and monitoring of vital signs [x] Documentation [x] Medication orders and management Subjective Date of service: 08/23/19 Principal diagnosis: Bilateral pneumonia, severe sepsis with septic shock, encephalopathy Interval history: Patient is seen today for: Ac hypoxemic Resp failure on MVS; Severe sepsis with Shock; Ivan. Pneumonia; PUI coronavirus-19 infection. Seen and examined at bedside; 24hour events reviewed; nursing and respiratory care staff consulted; no adverse overnight events reported to me; resting in bed; remains on MVS; AMS is persistent; more alert overall but still unclear if he can maintain his airway if extubated; no emesis or overt aspiration Objective Vital Signs - 12hr 08/22/19 08/23/19 08/23/19 23:26 00:00 00:09 Temperature 101.0 F H Pulse Rate 126 H 125 H 125 H Pulse Rate [ 125 H From Monitor] Respiratory 22 20 Rate Blood Pressure 116/68 115/70 115/70 O2 Sat by Pulse 100 100 100 Oximetry 08/23/19 08/23/19 08/23/19 01:00 02:00 03:00 Temperature Pulse Rate 120 H 113 H 102 H Pulse Rate [ From Monitor] Respiratory 18 15 15 Rate Blood Pressure 124/73 121/70 96/60 O2 Sat by Pulse 100 100 100 Oximetry 08/23/19 08/23/19 08/23/19 04:00 04:21 05:00 Temperature 98.0 F Pulse Rate 94 H 94 H 104 H Pulse Rate [ From Monitor] Respiratory 15 19 Rate Blood Pressure 119/70 127/80 128/77 O2 Sat by Pulse 100 100 Oximetry 08/23/19 08/23/19 08/23/19 06:00 07:00 08:00 Temperature 98.2 F Pulse Rate 89 86 87 Pulse Rate [ 88 From Monitor] Respiratory 14 14 15 Rate Blood Pressure 119/64 101/59 122/62 O2 Sat by Pulse 100 100 100 Oximetry 08/23/19 08/23/19 08/23/19 08:42 09:00 10:00 Temperature Pulse Rate 92 H 102 H 100 H Pulse Rate [ From Monitor] Respiratory 22 22 21 Rate Blood Pressure 132/60 125/70 127/69 O2 Sat by Pulse 100 100 100 Oximetry Constitutional: appears uncomfortable, other (eelderly and chronically ill looking AAM, normocep[krystina;ic with mildly increased respiratory effort at rest) Eyes: non-icteric ENT: oropharynx moist, other (ETT 24 cm RUTH) Neck: supple, no lymphadenopathy, no JVD Effort: mildly labored Ascultation: Bilateral: diminished breath sounds, rhonchi Percussion: Bilateral: not dull Cardiovascular: regular rate and rhythm Gastrointestinal: normoactive bowel sounds, soft, non-tender, non-distended, other (+ PEG tube with mild TF leakage) Integumentary: decubitus ulcer (sacral) Extremities: no cyanosis, no edema, pink and warm, pulses normal Neurologic: pupils equal and round, unable to assess Psychiatric: other (Unable to assess re: AMS) CBC and BMP: 08/23/19 06:00 08/20/19 Unknown ABG, PT/INR, D-dimer: ABG ABG pH 7.405 pH Units (7.350-7.450) 08/17/19 20:20 ABG pCO2 45.3 mm Hg 08/17/19 20:20 ABG pO2 84.2 mm Hg (80.0-90.0) 08/17/19 20:20 ABG O2 Saturation 96.9 % (95.0-99.0) 08/17/19 20:20 PT/INR, D-dimer PT 16.0 Sec. (12.2-14.9) H 07/03/19 22:20 INR 1.26 (0.87-1.13) H 07/03/19 22:20 D-Dimer 1808.06 ng/mlDDU (0-234) H 08/07/19 10:24 Abnormal lab findings: Abnormal Labs 07/03/19 07/03/19 07/03/19 19:57 21:10 21:13 WBC RBC Hgb Hct MCV MCH MCHC RDW Plt Count Lymph % (Auto) [place] % (Auto) Lymph # [place] # Baso # Seg Neutrophils % Seg Neuts % (Manual) Lymphocytes % (Manual) Monocytes % (Manual) Basophils % (Manual) Nucleated RBC % Seg Neutrophils # Seg Neutrophils # Man Lymphocytes # (Manual) Monocytes # (Manual) Eosinophils # (Manual) Basophils # (Manual) PT INR D-Dimer ABG pH 7.238 L ABG pO2 210.8 H ABG HCO3 15.4 L ABG O2 Saturation 99.2 H ABG Base Excess -11.1 L ABG Hemoglobin 8.0 L Oxyhemoglobin Sodium 124 L Potassium Chloride 92.9 L Carbon Dioxide 10 L BUN 23 H Creatinine 0.5 L Glucose 118 H POC Glucose Lactic Acid Calcium 7.0 L Magnesium Iron TIBC Ferritin AST 70 H ALT 88 H Lactate Dehydrogenase Troponin T 0.032 H C-Reactive Protein Total Protein 5.0 L Albumin 1.8 L Prealbumin Cholesterol 47 L LDL Cholesterol Direct 25 L HDL Cholesterol 20 L Urine WBC (Auto) 12.0 H Vancomycin Trough Coronavirus (PCR) Crossmatch 07/03/19 07/03/19 07/03/19 22:20 22:20 22:20 WBC 30.5 H RBC 2.96 L Hgb 7.7 L Hct 23.9 L MCV 81 L MCH 26 L MCHC RDW 18.6 H Plt Count 459 H Lymph % (Auto) [place] % (Auto) Lymph # [place] # Baso # Seg Neutrophils % Seg Neuts % (Manual) 93.0 H Lymphocytes % (Manual) 0.5 L Monocytes % (Manual) Basophils % (Manual) Nucleated RBC % Seg Neutrophils # Seg Neutrophils # Man 28.4 H Lymphocytes # (Manual) 0.2 L Monocytes # (Manual) Eosinophils # (Manual) Basophils # (Manual) PT 16.0 H INR 1.26 H D-Dimer ABG pH ABG pO2 ABG HCO3 ABG O2 Saturation ABG Base Excess ABG Hemoglobin Oxyhemoglobin Sodium Potassium Chloride Carbon Dioxide BUN Creatinine Glucose POC Glucose Lactic Acid 6.90 H* Calcium Magnesium Iron TIBC Ferritin AST ALT Lactate Dehydrogenase Troponin T C-Reactive Protein Total Protein Albumin Prealbumin Cholesterol LDL Cholesterol Direct HDL Cholesterol Urine WBC (Auto) Vancomycin Trough Coronavirus (PCR) Crossmatch 07/03/19 07/04/19 07/04/19 23:58 05:15 07:05 WBC 17.1 H RBC 3.22 L Hgb 8.3 L Hct 25.4 L MCV 79 L MCH 26 L MCHC RDW 18.6 H Plt Count Lymph % (Auto) [place] % (Auto) Lymph # [place] # Baso # Seg Neutrophils % Seg Neuts % (Manual) 74.0 H Lymphocytes % (Manual) 0 L Monocytes % (Manual) Basophils % (Manual) Nucleated RBC % Seg Neutrophils # Seg Neutrophils # Man 12.7 H Lymphocytes # (Manual) 0.0 L Monocytes # (Manual) Eosinophils # (Manual) Basophils # (Manual) PT INR D-Dimer ABG pH 7.310 L ABG pO2 73.2 L ABG HCO3 17.8 L ABG O2 Saturation 93.8 L ABG Base Excess -7.7 L ABG Hemoglobin 9.6 L Oxyhemoglobin 92.3 L Sodium Potassium Chloride Carbon Dioxide BUN Creatinine Glucose POC Glucose Lactic Acid 7.10 H* Calcium Magnesium Iron TIBC Ferritin AST ALT Lactate Dehydrogenase Troponin T C-Reactive Protein Total Protein Albumin Prealbumin Cholesterol LDL Cholesterol Direct HDL Cholesterol Urine WBC (Auto) Vancomycin Trough Coronavirus (PCR) Crossmatch 07/04/19 07/04/19 07/04/19 07:05 07:05 07:05 WBC RBC Hgb Hct MCV MCH MCHC RDW Plt Count Lymph % (Auto) [place] % (Auto) Lymph # [place] # Baso # Seg Neutrophils % Seg Neuts % (Manual) Lymphocytes % (Manual) Monocytes % (Manual) Basophils % (Manual) Nucleated RBC % Seg Neutrophils # Seg Neutrophils # Man Lymphocytes # (Manual) Monocytes # (Manual) Eosinophils # (Manual) Basophils # (Manual) PT INR D-Dimer ABG pH ABG pO2 ABG HCO3 ABG O2 Saturation ABG Base Excess ABG Hemoglobin Oxyhemoglobin Sodium 120 L Potassium 5.1 H Chloride 90.0 L Carbon Dioxide 14 L BUN 26 H Creatinine 0.5 L Glucose POC Glucose Lactic Acid 3.30 H* Calcium 8.0 L Magnesium Iron 9 L TIBC 97 L Ferritin AST 73 H ALT 91 H Lactate Dehydrogenase Troponin T C-Reactive Protein Total Protein 5.5 L Albumin 2.0 L Prealbumin Cholesterol LDL Cholesterol Direct HDL Cholesterol Urine WBC (Auto) Vancomycin Trough Coronavirus (PCR) Crossmatch 07/04/19 07/04/19 07/04/19 09:39 09:39 09:39 WBC RBC Hgb Hct MCV MCH MCHC RDW Plt Count Lymph % (Auto) [place] % (Auto) Lymph # [place] # Baso # Seg Neutrophils % Seg Neuts % (Manual) Lymphocytes % (Manual) Monocytes % (Manual) Basophils % (Manual) Nucleated RBC % Seg Neutrophils # Seg Neutrophils # Man Lymphocytes # (Manual) Monocytes # (Manual) Eosinophils # (Manual) Basophils # (Manual) PT INR D-Dimer 1419.14 H ABG pH ABG pO2 ABG HCO3 ABG O2 Saturation ABG Base Excess ABG Hemoglobin Oxyhemoglobin Sodium Potassium Chloride Carbon Dioxide BUN Creatinine Glucose POC Glucose Lactic Acid Calcium Magnesium Iron TIBC Ferritin 1719.0 H AST ALT Lactate Dehydrogenase 234 H Troponin T C-Reactive Protein 15.50 H Total Protein Albumin Prealbumin Cholesterol LDL Cholesterol Direct HDL Cholesterol Urine WBC (Auto) Vancomycin Trough Coronavirus (PCR) Crossmatch 07/04/19 07/04/19 07/04/19 10:09 18:08 18:28 WBC RBC Hgb Hct MCV MCH MCHC RDW Plt Count Lymph % (Auto) [place] % (Auto) Lymph # [place] # Baso # Seg Neutrophils % Seg Neuts % (Manual) Lymphocytes % (Manual) Monocytes % (Manual) Basophils % (Manual) Nucleated RBC % Seg Neutrophils # Seg Neutrophils # Man Lymphocytes # (Manual) Monocytes # (Manual) Eosinophils # (Manual) Basophils # (Manual) PT INR D-Dimer ABG pH ABG pO2 ABG HCO3 ABG O2 Saturation ABG Base Excess ABG Hemoglobin Oxyhemoglobin Sodium 117 L* Potassium 5.6 H Chloride 90.3 L Carbon Dioxide 16 L BUN 28 H Creatinine 0.5 L Glucose 58 L POC Glucose 65 L Lactic Acid Calcium 8.2 L Magnesium Iron TIBC Ferritin AST ALT Lactate Dehydrogenase Troponin T C-Reactive Protein Total Protein Albumin Prealbumin Cholesterol LDL Cholesterol Direct HDL Cholesterol Urine WBC (Auto) Vancomycin Trough Coronavirus (PCR) Positive A Crossmatch 07/04/19 07/04/19 07/04/19 23:45 Unknown Unknown WBC RBC Hgb Hct MCV MCH MCHC RDW Plt Count Lymph % (Auto) [place] % (Auto) Lymph # [place] # Baso # Seg Neutrophils % Seg Neuts % (Manual) Lymphocytes % (Manual) Monocytes % (Manual) Basophils % (Manual) Nucleated RBC % Seg Neutrophils # Seg Neutrophils # Man Lymphocytes # (Manual) Monocytes # (Manual) Eosinophils # (Manual) Basophils # (Manual) PT INR D-Dimer 759.77 H ABG pH ABG pO2 ABG HCO3 ABG O2 Saturation ABG Base Excess ABG Hemoglobin Oxyhemoglobin Sodium 122 L Potassium Chloride 93.0 L Carbon Dioxide 19 L BUN 27 H Creatinine 0.5 L Glucose POC Glucose Lactic Acid Calcium 8.3 L Magnesium Iron TIBC Ferritin 1301.0 H AST ALT Lactate Dehydrogenase Troponin T C-Reactive Protein Total Protein Albumin Prealbumin Cholesterol LDL Cholesterol Direct HDL Cholesterol Urine WBC (Auto) Vancomycin Trough Coronavirus (PCR) Crossmatch 07/04/19 07/05/19 07/05/19 Unknown 03:20 04:00 WBC RBC Hgb Hct MCV MCH MCHC RDW Plt Count Lymph % (Auto) [place] % (Auto) Lymph # [place] # Baso # Seg Neutrophils % Seg Neuts % (Manual) Lymphocytes % (Manual) Monocytes % (Manual) Basophils % (Manual) Nucleated RBC % Seg Neutrophils # Seg Neutrophils # Man Lymphocytes # (Manual) Monocytes # (Manual) Eosinophils # (Manual) Basophils # (Manual) PT INR D-Dimer ABG pH ABG pO2 60.6 L ABG HCO3 ABG O2 Saturation 93.5 L ABG Base Excess -2.4 L ABG Hemoglobin 6.9 L Oxyhemoglobin 92.0 L Sodium 125 L Potassium Chloride 92.6 L Carbon Dioxide 19 L BUN 24 H Creatinine 0.6 L Glucose POC Glucose Lactic Acid Calcium 8.2 L Magnesium 1.40 L Iron TIBC Ferritin AST ALT Lactate Dehydrogenase 242 H Troponin T C-Reactive Protein 16.70 H Total Protein Albumin Prealbumin Cholesterol LDL Cholesterol Direct HDL Cholesterol Urine WBC (Auto) Vancomycin Trough Coronavirus (PCR) Crossmatch 07/05/19 07/05/19 07/05/19 10:11 16:15 17:54 WBC 46.4 H* RBC 2.77 L Hgb 7.2 L Hct 21.9 L MCV 79 L MCH 26 L MCHC RDW 19.0 H Plt Count Lymph % (Auto) [place] % (Auto) Lymph # [place] # Baso # Seg Neutrophils % Seg Neuts % (Manual) 82.0 H Lymphocytes % (Manual) 1.0 L Monocytes % (Manual) Basophils % (Manual) Nucleated RBC % Seg Neutrophils # Seg Neutrophils # Man 38.0 H Lymphocytes # (Manual) 0.5 L Monocytes # (Manual) Eosinophils # (Manual) Basophils # (Manual) PT INR D-Dimer ABG pH ABG pO2 ABG HCO3 ABG O2 Saturation ABG Base Excess ABG Hemoglobin Oxyhemoglobin Sodium Potassium Chloride Carbon Dioxide BUN Creatinine Glucose POC Glucose 69 L Lactic Acid Calcium Magnesium Iron TIBC Ferritin AST ALT Lactate Dehydrogenase Troponin T C-Reactive Protein Total Protein Albumin Prealbumin Cholesterol LDL Cholesterol Direct HDL Cholesterol Urine WBC (Auto) Vancomycin Trough 23.2 H Coronavirus (PCR) Crossmatch 07/05/19 07/06/19 07/06/19 19:58 00:27 00:27 WBC RBC Hgb Hct MCV MCH MCHC RDW Plt Count Lymph % (Auto) [place] % (Auto) Lymph # [place] # Baso # Seg Neutrophils % Seg Neuts % (Manual) Lymphocytes % (Manual) Monocytes % (Manual) Basophils % (Manual) Nucleated RBC % Seg Neutrophils # Seg Neutrophils # Man Lymphocytes # (Manual) Monocytes # (Manual) Eosinophils # (Manual) Basophils # (Manual) PT INR D-Dimer 1333.22 H ABG pH ABG pO2 ABG HCO3 ABG O2 Saturation ABG Base Excess ABG Hemoglobin Oxyhemoglobin Sodium 127 L Potassium Chloride Carbon Dioxide BUN Creatinine Glucose POC Glucose Lactic Acid Calcium Magnesium Iron TIBC Ferritin 977.1 H AST ALT Lactate Dehydrogenase Troponin T C-Reactive Protein Total Protein Albumin Prealbumin Cholesterol LDL Cholesterol Direct HDL Cholesterol Urine WBC (Auto) Vancomycin Trough Coronavirus (PCR) Crossmatch 07/06/19 07/06/19 07/06/19 00:27 02:00 02:56 WBC RBC Hgb Hct MCV MCH MCHC RDW Plt Count Lymph % (Auto) [place] % (Auto) Lymph # [place] # Baso # Seg Neutrophils % Seg Neuts % (Manual) Lymphocytes % (Manual) Monocytes % (Manual) Basophils % (Manual) Nucleated RBC % Seg Neutrophils # Seg Neutrophils # Man Lymphocytes # (Manual) Monocytes # (Manual) Eosinophils # (Manual) Basophils # (Manual) PT INR D-Dimer ABG pH ABG pO2 70.3 L ABG HCO3 ABG O2 Saturation 94.8 L ABG Base Excess ABG Hemoglobin 8.0 L Oxyhemoglobin 93.2 L Sodium Potassium Chloride Carbon Dioxide BUN Creatinine Glucose POC Glucose 117 H Lactic Acid Calcium Magnesium Iron TIBC Ferritin AST ALT Lactate Dehydrogenase 236 H Troponin T C-Reactive Protein 22.90 H Total Protein Albumin Prealbumin Cholesterol LDL Cholesterol Direct HDL Cholesterol Urine WBC (Auto) Vancomycin Trough Coronavirus (PCR) Crossmatch 07/06/19 07/06/19 07/06/19 03:49 03:49 07:40 WBC 38.8 H RBC 2.51 L Hgb 6.7 L Hct 19.9 L* MCV 79 L MCH 27 L MCHC RDW 19.2 H Plt Count Lymph % (Auto) [place] % (Auto) Lymph # [place] # Baso # Seg Neutrophils % Seg Neuts % (Manual) 90.5 H Lymphocytes % (Manual) 1.0 L Monocytes % (Manual) Basophils % (Manual) Nucleated RBC % Seg Neutrophils # Seg Neutrophils # Man 35.1 H Lymphocytes # (Manual) 0.4 L Monocytes # (Manual) Eosinophils # (Manual) Basophils # (Manual) PT INR D-Dimer ABG pH ABG pO2 ABG HCO3 ABG O2 Saturation ABG Base Excess ABG Hemoglobin Oxyhemoglobin Sodium 131 L Potassium Chloride 96.9 L Carbon Dioxide 18 L BUN 23 H Creatinine 0.5 L Glucose POC Glucose Lactic Acid Calcium 8.0 L Magnesium Iron TIBC Ferritin AST ALT Lactate Dehydrogenase Troponin T C-Reactive Protein Total Protein Albumin Prealbumin Cholesterol LDL Cholesterol Direct HDL Cholesterol Urine WBC (Auto) Vancomycin Trough Coronavirus (PCR) Crossmatch See Detail 07/06/19 07/06/19 07/06/19 12:38 14:39 20:00 WBC RBC Hgb Hct MCV MCH MCHC RDW Plt Count Lymph % (Auto) [place] % (Auto) Lymph # [place] # Baso # Seg Neutrophils % Seg Neuts % (Manual) Lymphocytes % (Manual) Monocytes % (Manual) Basophils % (Manual) Nucleated RBC % Seg Neutrophils # Seg Neutrophils # Man Lymphocytes # (Manual) Monocytes # (Manual) Eosinophils # (Manual) Basophils # (Manual) PT INR D-Dimer ABG pH ABG pO2 ABG HCO3 ABG O2 Saturation ABG Base Excess ABG Hemoglobin Oxyhemoglobin Sodium Potassium Chloride Carbon Dioxide BUN Creatinine Glucose POC Glucose 112 H 111 H 140 H Lactic Acid Calcium Magnesium Iron TIBC Ferritin AST ALT Lactate Dehydrogenase Troponin T C-Reactive Protein Total Protein Albumin Prealbumin Cholesterol LDL Cholesterol Direct HDL Cholesterol Urine WBC (Auto) Vancomycin Trough Coronavirus (PCR) Crossmatch 07/06/19 07/06/19 07/07/19 22:43 22:56 02:20 WBC RBC Hgb 7.9 L Hct 23.1 L MCV MCH MCHC RDW Plt Count Lymph % (Auto) [place] % (Auto) Lymph # [place] # Baso # Seg Neutrophils % Seg Neuts % (Manual) Lymphocytes % (Manual) Monocytes % (Manual) Basophils % (Manual) Nucleated RBC % Seg Neutrophils # Seg Neutrophils # Man Lymphocytes # (Manual) Monocytes # (Manual) Eosinophils # (Manual) Basophils # (Manual) PT INR D-Dimer ABG pH ABG pO2 ABG HCO3 ABG O2 Saturation ABG Base Excess ABG Hemoglobin Oxyhemoglobin Sodium Potassium Chloride Carbon Dioxide BUN Creatinine Glucose POC Glucose 122 H 149 H Lactic Acid Calcium Magnesium Iron TIBC Ferritin AST ALT Lactate Dehydrogenase Troponin T C-Reactive Protein Total Protein Albumin Prealbumin Cholesterol LDL Cholesterol Direct HDL Cholesterol Urine WBC (Auto) Vancomycin Trough Coronavirus (PCR) Crossmatch 07/07/19 07/07/19 07/07/19 04:35 05:27 05:34 WBC 23.1 H RBC 3.00 L Hgb 8.1 L Hct 24.2 L MCV 81 L MCH 27 L MCHC RDW 20.6 H Plt Count Lymph % (Auto) [place] % (Auto) Lymph # [place] # Baso # Seg Neutrophils % Seg Neuts % (Manual) 90.0 H Lymphocytes % (Manual) 2.0 L Monocytes % (Manual) Basophils % (Manual) Nucleated RBC % Seg Neutrophils # Seg Neutrophils # Man 20.8 H Lymphocytes # (Manual) 0.5 L Monocytes # (Manual) Eosinophils # (Manual) Basophils # (Manual) PT INR D-Dimer ABG pH ABG pO2 65.8 L ABG HCO3 ABG O2 Saturation 92.2 L ABG Base Excess ABG Hemoglobin 8.3 L Oxyhemoglobin 90.6 L Sodium Potassium Chloride Carbon Dioxide BUN Creatinine Glucose POC Glucose 132 H Lactic Acid Calcium Magnesium Iron TIBC Ferritin AST ALT Lactate Dehydrogenase Troponin T C-Reactive Protein Total Protein Albumin Prealbumin Cholesterol LDL Cholesterol Direct HDL Cholesterol Urine WBC (Auto) Vancomycin Trough Coronavirus (PCR) Crossmatch 07/07/19 07/07/19 07/07/19 05:34 11:50 15:58 WBC RBC Hgb 8.1 L Hct 24.2 L MCV MCH MCHC RDW Plt Count Lymph % (Auto) [place] % (Auto) Lymph # [place] # Baso # Seg Neutrophils % Seg Neuts % (Manual) Lymphocytes % (Manual) Monocytes % (Manual) Basophils % (Manual) Nucleated RBC % Seg Neutrophils # Seg Neutrophils # Man Lymphocytes # (Manual) Monocytes # (Manual) Eosinophils # (Manual) Basophils # (Manual) PT INR D-Dimer ABG pH ABG pO2 ABG HCO3 ABG O2 Saturation ABG Base Excess ABG Hemoglobin Oxyhemoglobin Sodium 135 L Potassium 3.3 L Chloride Carbon Dioxide 20 L BUN 27 H Creatinine 0.6 L Glucose 121 H POC Glucose 123 H Lactic Acid Calcium 8.0 L Magnesium Iron TIBC Ferritin AST ALT Lactate Dehydrogenase Troponin T C-Reactive Protein Total Protein Albumin Prealbumin Cholesterol LDL Cholesterol Direct HDL Cholesterol Urine WBC (Auto) Vancomycin Trough Coronavirus (PCR) Crossmatch 07/07/19 07/07/19 07/07/19 17:42 22:00 23:53 WBC RBC Hgb 8.0 L Hct 23.4 L MCV MCH MCHC RDW Plt Count Lymph % (Auto) [place] % (Auto) Lymph # [place] # Baso # Seg Neutrophils % Seg Neuts % (Manual) Lymphocytes % (Manual) Monocytes % (Manual) Basophils % (Manual) Nucleated RBC % Seg Neutrophils # Seg Neutrophils # Man Lymphocytes # (Manual) Monocytes # (Manual) Eosinophils # (Manual) Basophils # (Manual) PT INR D-Dimer ABG pH ABG pO2 ABG HCO3 ABG O2 Saturation ABG Base Excess ABG Hemoglobin Oxyhemoglobin Sodium Potassium Chloride Carbon Dioxide BUN Creatinine Glucose POC Glucose 107 H 117 H Lactic Acid Calcium Magnesium Iron TIBC Ferritin AST ALT Lactate Dehydrogenase Troponin T C-Reactive Protein Total Protein Albumin Prealbumin Cholesterol LDL Cholesterol Direct HDL Cholesterol Urine WBC (Auto) Vancomycin Trough Coronavirus (PCR) Crossmatch 07/08/19 07/08/19 07/08/19 00:45 00:45 00:45 WBC RBC Hgb Hct MCV MCH MCHC RDW Plt Count Lymph % (Auto) [place] % (Auto) Lymph # [place] # Baso # Seg Neutrophils % Seg Neuts % (Manual) Lymphocytes % (Manual) Monocytes % (Manual) Basophils % (Manual) Nucleated RBC % Seg Neutrophils # Seg Neutrophils # Man Lymphocytes # (Manual) Monocytes # (Manual) Eosinophils # (Manual) Basophils # (Manual) PT INR D-Dimer 1142.18 H ABG pH ABG pO2 ABG HCO3 ABG O2 Saturation ABG Base Excess ABG Hemoglobin Oxyhemoglobin Sodium Potassium Chloride Carbon Dioxide BUN Creatinine Glucose POC Glucose Lactic Acid Calcium Magnesium Iron TIBC Ferritin 839.0 H AST ALT Lactate Dehydrogenase 253 H Troponin T C-Reactive Protein 18.90 H Total Protein Albumin Prealbumin Cholesterol LDL Cholesterol Direct HDL Cholesterol Urine WBC (Auto) Vancomycin Trough Coronavirus (PCR) Crossmatch 07/08/19 07/08/19 07/08/19 04:30 05:11 12:02 WBC RBC Hgb Hct MCV MCH MCHC RDW Plt Count Lymph % (Auto) [place] % (Auto) Lymph # [place] # Baso # Seg Neutrophils % Seg Neuts % (Manual) Lymphocytes % (Manual) Monocytes % (Manual) Basophils % (Manual) Nucleated RBC % Seg Neutrophils # Seg Neutrophils # Man Lymphocytes # (Manual) Monocytes # (Manual) Eosinophils # (Manual) Basophils # (Manual) PT INR D-Dimer ABG pH ABG pO2 66.0 L ABG HCO3 ABG O2 Saturation 92.3 L ABG Base Excess ABG Hemoglobin 7.7 L Oxyhemoglobin 90.7 L Sodium Potassium Chloride Carbon Dioxide BUN Creatinine Glucose POC Glucose 108 H 153 H Lactic Acid Calcium Magnesium Iron TIBC Ferritin AST ALT Lactate Dehydrogenase Troponin T C-Reactive Protein Total Protein Albumin Prealbumin Cholesterol LDL Cholesterol Direct HDL Cholesterol Urine WBC (Auto) Vancomycin Trough Coronavirus (PCR) Crossmatch 07/08/19 07/08/19 07/08/19 16:15 18:22 23:35 WBC RBC Hgb Hct MCV MCH MCHC RDW Plt Count Lymph % (Auto) [place] % (Auto) Lymph # [place] # Baso # Seg Neutrophils % Seg Neuts % (Manual) Lymphocytes % (Manual) Monocytes % (Manual) Basophils % (Manual) Nucleated RBC % Seg Neutrophils # Seg Neutrophils # Man Lymphocytes # (Manual) Monocytes # (Manual) Eosinophils # (Manual) Basophils # (Manual) PT INR D-Dimer ABG pH ABG pO2 ABG HCO3 ABG O2 Saturation ABG Base Excess ABG Hemoglobin Oxyhemoglobin Sodium 134 L Potassium 3.3 L Chloride Carbon Dioxide 21 L BUN 27 H Creatinine 0.6 L Glucose 146 H POC Glucose 134 H 133 H Lactic Acid Calcium Magnesium Iron TIBC Ferritin AST ALT Lactate Dehydrogenase Troponin T C-Reactive Protein Total Protein Albumin Prealbumin Cholesterol LDL Cholesterol Direct HDL Cholesterol Urine WBC (Auto) Vancomycin Trough Coronavirus (PCR) Crossmatch 07/09/19 07/09/19 07/09/19 04:30 04:30 05:00 WBC 18.9 H RBC 2.77 L Hgb 7.4 L Hct 22.8 L MCV 82 L MCH 27 L MCHC RDW 20.9 H Plt Count 130 L Lymph % (Auto) [place] % (Auto) Lymph # [place] # Baso # Seg Neutrophils % Seg Neuts % (Manual) 84.0 H Lymphocytes % (Manual) 0 L Monocytes % (Manual) Basophils % (Manual) Nucleated RBC % Seg Neutrophils # Seg Neutrophils # Man 15.9 H Lymphocytes # (Manual) 0.0 L Monocytes # (Manual) Eosinophils # (Manual) Basophils # (Manual) PT INR D-Dimer ABG pH ABG pO2 ABG HCO3 ABG O2 Saturation ABG Base Excess ABG Hemoglobin Oxyhemoglobin Sodium Potassium 3.1 L Chloride Carbon Dioxide BUN 26 H Creatinine 0.5 L Glucose 125 H POC Glucose 155 H Lactic Acid Calcium Magnesium Iron TIBC Ferritin AST ALT Lactate Dehydrogenase Troponin T C-Reactive Protein Total Protein Albumin Prealbumin Cholesterol LDL Cholesterol Direct HDL Cholesterol Urine WBC (Auto) Vancomycin Trough Coronavirus (PCR) Crossmatch 07/09/19 07/09/19 07/09/19 05:55 12:22 17:50 WBC RBC Hgb Hct MCV MCH MCHC RDW Plt Count Lymph % (Auto) [place] % (Auto) Lymph # [place] # Baso # Seg Neutrophils % Seg Neuts % (Manual) Lymphocytes % (Manual) Monocytes % (Manual) Basophils % (Manual) Nucleated RBC % Seg Neutrophils # Seg Neutrophils # Man Lymphocytes # (Manual) Monocytes # (Manual) Eosinophils # (Manual) Basophils # (Manual) PT INR D-Dimer ABG pH ABG pO2 62.8 L ABG HCO3 ABG O2 Saturation ABG Base Excess ABG Hemoglobin 6.1 L Oxyhemoglobin 93.9 L Sodium Potassium Chloride Carbon Dioxide BUN Creatinine Glucose POC Glucose 115 H 133 H Lactic Acid Calcium Magnesium Iron TIBC Ferritin AST ALT Lactate Dehydrogenase Troponin T C-Reactive Protein Total Protein Albumin Prealbumin Cholesterol LDL Cholesterol Direct HDL Cholesterol Urine WBC (Auto) Vancomycin Trough Coronavirus (PCR) Crossmatch 07/10/19 07/10/19 07/10/19 00:38 04:00 04:00 WBC RBC Hgb Hct MCV MCH MCHC RDW Plt Count Lymph % (Auto) [place] % (Auto) Lymph # [place] # Baso # Seg Neutrophils % Seg Neuts % (Manual) Lymphocytes % (Manual) Monocytes % (Manual) Basophils % (Manual) Nucleated RBC % Seg Neutrophils # Seg Neutrophils # Man Lymphocytes # (Manual) Monocytes # (Manual) Eosinophils # (Manual) Basophils # (Manual) PT INR D-Dimer ABG pH ABG pO2 ABG HCO3 ABG O2 Saturation ABG Base Excess ABG Hemoglobin Oxyhemoglobin Sodium Potassium Chloride 107.9 H Carbon Dioxide BUN 26 H Creatinine 0.4 L Glucose 137 H POC Glucose 122 H Lactic Acid Calcium Magnesium 1.50 L Iron TIBC Ferritin AST ALT Lactate Dehydrogenase 277 H Troponin T C-Reactive Protein 15.10 H Total Protein Albumin Prealbumin Cholesterol LDL Cholesterol Direct HDL Cholesterol Urine WBC (Auto) Vancomycin Trough Coronavirus (PCR) Crossmatch 07/10/19 07/10/19 07/10/19 04:07 05:21 17:25 WBC RBC Hgb Hct MCV MCH MCHC RDW Plt Count Lymph % (Auto) [place] % (Auto) Lymph # [place] # Baso # Seg Neutrophils % Seg Neuts % (Manual) Lymphocytes % (Manual) Monocytes % (Manual) Basophils % (Manual) Nucleated RBC % Seg Neutrophils # Seg Neutrophils # Man Lymphocytes # (Manual) Monocytes # (Manual) Eosinophils # (Manual) Basophils # (Manual) PT INR D-Dimer ABG pH ABG pO2 65.6 L ABG HCO3 26.3 H ABG O2 Saturation ABG Base Excess ABG Hemoglobin 6.7 L Oxyhemoglobin Sodium Potassium Chloride Carbon Dioxide BUN Creatinine Glucose POC Glucose 144 H 113 H Lactic Acid Calcium Magnesium Iron TIBC Ferritin AST ALT Lactate Dehydrogenase Troponin T C-Reactive Protein Total Protein Albumin Prealbumin Cholesterol LDL Cholesterol Direct HDL Cholesterol Urine WBC (Auto) Vancomycin Trough Coronavirus (PCR) Crossmatch 07/11/19 07/11/19 07/11/19 00:07 05:14 05:25 WBC RBC Hgb Hct MCV MCH MCHC RDW Plt Count Lymph % (Auto) [place] % (Auto) Lymph # [place] # Baso # Seg Neutrophils % Seg Neuts % (Manual) Lymphocytes % (Manual) Monocytes % (Manual) Basophils % (Manual) Nucleated RBC % Seg Neutrophils # Seg Neutrophils # Man Lymphocytes # (Manual) Monocytes # (Manual) Eosinophils # (Manual) Basophils # (Manual) PT INR D-Dimer ABG pH ABG pO2 ABG HCO3 ABG O2 Saturation ABG Base Excess ABG Hemoglobin 5.8 L Oxyhemoglobin Sodium Potassium Chloride 108.0 H Carbon Dioxide BUN 26 H Creatinine 0.4 L Glucose 110 H POC Glucose 121 H Lactic Acid Calcium Magnesium Iron TIBC Ferritin AST ALT Lactate Dehydrogenase Troponin T C-Reactive Protein Total Protein Albumin Prealbumin Cholesterol LDL Cholesterol Direct HDL Cholesterol Urine WBC (Auto) Vancomycin Trough Coronavirus (PCR) Crossmatch 07/11/19 07/11/19 07/11/19 12:27 18:00 23:42 WBC RBC Hgb Hct MCV MCH MCHC RDW Plt Count Lymph % (Auto) [place] % (Auto) Lymph # [place] # Baso # Seg Neutrophils % Seg Neuts % (Manual) Lymphocytes % (Manual) Monocytes % (Manual) Basophils % (Manual) Nucleated RBC % Seg Neutrophils # Seg Neutrophils # Man Lymphocytes # (Manual) Monocytes # (Manual) Eosinophils # (Manual) Basophils # (Manual) PT INR D-Dimer ABG pH ABG pO2 ABG HCO3 ABG O2 Saturation ABG Base Excess ABG Hemoglobin Oxyhemoglobin Sodium Potassium Chloride Carbon Dioxide BUN Creatinine Glucose POC Glucose 158 H 141 H 142 H Lactic Acid Calcium Magnesium Iron TIBC Ferritin AST ALT Lactate Dehydrogenase Troponin T C-Reactive Protein Total Protein Albumin Prealbumin Cholesterol LDL Cholesterol Direct HDL Cholesterol Urine WBC (Auto) Vancomycin Trough Coronavirus (PCR) Crossmatch 07/12/19 07/12/19 07/12/19 04:46 04:46 05:23 WBC 23.6 H RBC 2.51 L Hgb 6.7 L Hct 20.8 L MCV 83 L MCH 27 L MCHC RDW 20.3 H Plt Count Lymph % (Auto) [place] % (Auto) Lymph # [place] # Baso # Seg Neutrophils % Seg Neuts % (Manual) 94.0 H Lymphocytes % (Manual) 4.0 L Monocytes % (Manual) Basophils % (Manual) Nucleated RBC % Seg Neutrophils # Seg Neutrophils # Man 22.2 H Lymphocytes # (Manual) 0.9 L Monocytes # (Manual) Eosinophils # (Manual) Basophils # (Manual) PT INR D-Dimer ABG pH ABG pO2 ABG HCO3 ABG O2 Saturation ABG Base Excess ABG Hemoglobin Oxyhemoglobin Sodium Potassium Chloride 107.1 H Carbon Dioxide BUN 25 H Creatinine 0.4 L Glucose 122 H POC Glucose 118 H Lactic Acid Calcium Magnesium Iron TIBC Ferritin AST ALT Lactate Dehydrogenase Troponin T C-Reactive Protein Total Protein Albumin Prealbumin Cholesterol LDL Cholesterol Direct HDL Cholesterol Urine WBC (Auto) Vancomycin Trough Coronavirus (PCR) Crossmatch 07/12/19 07/12/19 07/12/19 08:49 11:36 18:15 WBC RBC Hgb Hct MCV MCH MCHC RDW Plt Count Lymph % (Auto) [place] % (Auto) Lymph # [place] # Baso # Seg Neutrophils % Seg Neuts % (Manual) Lymphocytes % (Manual) Monocytes % (Manual) Basophils % (Manual) Nucleated RBC % Seg Neutrophils # Seg Neutrophils # Man Lymphocytes # (Manual) Monocytes # (Manual) Eosinophils # (Manual) Basophils # (Manual) PT INR D-Dimer ABG pH ABG pO2 ABG HCO3 ABG O2 Saturation ABG Base Excess ABG Hemoglobin Oxyhemoglobin Sodium Potassium Chloride Carbon Dioxide BUN Creatinine Glucose POC Glucose 124 H 110 H Lactic Acid Calcium Magnesium Iron TIBC Ferritin AST ALT Lactate Dehydrogenase Troponin T C-Reactive Protein Total Protein Albumin Prealbumin Cholesterol LDL Cholesterol Direct HDL Cholesterol Urine WBC (Auto) Vancomycin Trough Coronavirus (PCR) Crossmatch See Detail 07/12/19 07/13/19 07/13/19 23:16 05:26 06:50 WBC 23.9 H RBC 2.58 L Hgb 6.9 L Hct 21.5 L MCV 83 L MCH 27 L MCHC RDW 19.0 H Plt Count Lymph % (Auto) [place] % (Auto) Lymph # [place] # Baso # Seg Neutrophils % Seg Neuts % (Manual) 96.0 H Lymphocytes % (Manual) 3.0 L Monocytes % (Manual) Basophils % (Manual) Nucleated RBC % Seg Neutrophils # Seg Neutrophils # Man 22.9 H Lymphocytes # (Manual) 0.7 L Monocytes # (Manual) Eosinophils # (Manual) Basophils # (Manual) PT INR D-Dimer ABG pH ABG pO2 ABG HCO3 ABG O2 Saturation ABG Base Excess ABG Hemoglobin Oxyhemoglobin Sodium Potassium Chloride Carbon Dioxide BUN Creatinine Glucose POC Glucose 108 H 126 H Lactic Acid Calcium Magnesium Iron TIBC Ferritin AST ALT Lactate Dehydrogenase Troponin T C-Reactive Protein Total Protein Albumin Prealbumin Cholesterol LDL Cholesterol Direct HDL Cholesterol Urine WBC (Auto) Vancomycin Trough Coronavirus (PCR) Crossmatch 07/13/19 07/13/19 07/13/19 06:50 12:38 18:05 WBC RBC Hgb Hct MCV MCH MCHC RDW Plt Count Lymph % (Auto) [place] % (Auto) Lymph # [place] # Baso # Seg Neutrophils % Seg Neuts % (Manual) Lymphocytes % (Manual) Monocytes % (Manual) Basophils % (Manual) Nucleated RBC % Seg Neutrophils # Seg Neutrophils # Man Lymphocytes # (Manual) Monocytes # (Manual) Eosinophils # (Manual) Basophils # (Manual) PT INR D-Dimer ABG pH ABG pO2 ABG HCO3 ABG O2 Saturation ABG Base Excess ABG Hemoglobin Oxyhemoglobin Sodium Potassium Chloride Carbon Dioxide BUN 33 H Creatinine 0.5 L Glucose 136 H POC Glucose 164 H 145 H Lactic Acid Calcium Magnesium Iron TIBC Ferritin AST ALT Lactate Dehydrogenase Troponin T C-Reactive Protein Total Protein Albumin Prealbumin Cholesterol LDL Cholesterol Direct HDL Cholesterol Urine WBC (Auto) Vancomycin Trough Coronavirus (PCR) Crossmatch 07/13/19 07/14/19 07/14/19 18:30 00:21 04:40 WBC 22.9 H RBC 2.45 L Hgb 6.6 L Hct 21.1 L MCV MCH 27 L MCHC 31 L RDW 19.2 H Plt Count Lymph % (Auto) [place] % (Auto) Lymph # [place] # Baso # Seg Neutrophils % Seg Neuts % (Manual) 91.0 H Lymphocytes % (Manual) 7.0 L Monocytes % (Manual) Basophils % (Manual) Nucleated RBC % Seg Neutrophils # Seg Neutrophils # Man 20.8 H Lymphocytes # (Manual) Monocytes # (Manual) Eosinophils # (Manual) Basophils # (Manual) PT INR D-Dimer ABG pH ABG pO2 58.1 L ABG HCO3 ABG O2 Saturation 88.7 L ABG Base Excess ABG Hemoglobin 7.8 L Oxyhemoglobin 86.8 L Sodium Potassium Chloride Carbon Dioxide BUN Creatinine Glucose POC Glucose 118 H Lactic Acid Calcium Magnesium Iron TIBC Ferritin AST ALT Lactate Dehydrogenase Troponin T C-Reactive Protein Total Protein Albumin Prealbumin Cholesterol LDL Cholesterol Direct HDL Cholesterol Urine WBC (Auto) Vancomycin Trough Coronavirus (PCR) Crossmatch 07/14/19 07/14/19 07/14/19 04:40 05:38 05:45 WBC RBC Hgb Hct MCV MCH MCHC RDW Plt Count Lymph % (Auto) [place] % (Auto) Lymph # [place] # Baso # Seg Neutrophils % Seg Neuts % (Manual) Lymphocytes % (Manual) Monocytes % (Manual) Basophils % (Manual) Nucleated RBC % Seg Neutrophils # Seg Neutrophils # Man Lymphocytes # (Manual) Monocytes # (Manual) Eosinophils # (Manual) Basophils # (Manual) PT INR D-Dimer ABG pH 7.230 L ABG pO2 72.1 L ABG HCO3 ABG O2 Saturation 89.3 L ABG Base Excess -2.7 L ABG Hemoglobin 6.7 L Oxyhemoglobin 87.7 L Sodium Potassium Chloride 107.4 H Carbon Dioxide BUN 45 H Creatinine Glucose 101 H POC Glucose 154 H Lactic Acid Calcium Magnesium Iron TIBC Ferritin AST ALT Lactate Dehydrogenase Troponin T C-Reactive Protein Total Protein Albumin Prealbumin Cholesterol LDL Cholesterol Direct HDL Cholesterol Urine WBC (Auto) Vancomycin Trough Coronavirus (PCR) Crossmatch 07/14/19 07/14/19 07/14/19 12:25 18:20 19:01 WBC 22.4 H RBC 2.70 L Hgb 7.5 L Hct 23.3 L MCV MCH MCHC RDW 19.5 H Plt Count Lymph % (Auto) [place] % (Auto) Lymph # [place] # Baso # Seg Neutrophils % Seg Neuts % (Manual) Lymphocytes % (Manual) Monocytes % (Manual) Basophils % (Manual) Nucleated RBC % Seg Neutrophils # Seg Neutrophils # Man Lymphocytes # (Manual) Monocytes # (Manual) Eosinophils # (Manual) Basophils # (Manual) PT INR D-Dimer ABG pH ABG pO2 ABG HCO3 ABG O2 Saturation ABG Base Excess ABG Hemoglobin Oxyhemoglobin Sodium Potassium Chloride Carbon Dioxide BUN Creatinine Glucose POC Glucose 136 H 131 H Lactic Acid Calcium Magnesium Iron TIBC Ferritin AST ALT Lactate Dehydrogenase Troponin T C-Reactive Protein Total Protein Albumin Prealbumin Cholesterol LDL Cholesterol Direct HDL Cholesterol Urine WBC (Auto) Vancomycin Trough Coronavirus (PCR) Crossmatch 07/15/19 07/15/19 07/15/19 00:17 04:35 05:18 WBC 20.6 H RBC 2.41 L Hgb 6.8 L Hct 20.7 L MCV MCH MCHC RDW 20.2 H Plt Count Lymph % (Auto) [place] % (Auto) Lymph # [place] # Baso # Seg Neutrophils % Seg Neuts % (Manual) 92.0 H Lymphocytes % (Manual) 5.0 L Monocytes % (Manual) Basophils % (Manual) Nucleated RBC % Seg Neutrophils # Seg Neutrophils # Man 19.0 H Lymphocytes # (Manual) 1.0 L Monocytes # (Manual) Eosinophils # (Manual) Basophils # (Manual) PT INR D-Dimer ABG pH 7.342 L ABG pO2 ABG HCO3 ABG O2 Saturation ABG Base Excess -3.1 L ABG Hemoglobin 7.2 L Oxyhemoglobin 94.9 L Sodium Potassium Chloride Carbon Dioxide BUN Creatinine Glucose POC Glucose 116 H Lactic Acid Calcium Magnesium Iron TIBC Ferritin AST ALT Lactate Dehydrogenase Troponin T C-Reactive Protein Total Protein Albumin Prealbumin Cholesterol LDL Cholesterol Direct HDL Cholesterol Urine WBC (Auto) Vancomycin Trough Coronavirus (PCR) Crossmatch 07/15/19 07/15/19 07/15/19 05:18 05:57 11:28 WBC RBC Hgb Hct MCV MCH MCHC RDW Plt Count Lymph % (Auto) [place] % (Auto) Lymph # [place] # Baso # Seg Neutrophils % Seg Neuts % (Manual) Lymphocytes % (Manual) Monocytes % (Manual) Basophils % (Manual) Nucleated RBC % Seg Neutrophils # Seg Neutrophils # Man Lymphocytes # (Manual) Monocytes # (Manual) Eosinophils # (Manual) Basophils # (Manual) PT INR D-Dimer ABG pH ABG pO2 ABG HCO3 ABG O2 Saturation ABG Base Excess ABG Hemoglobin Oxyhemoglobin Sodium Potassium Chloride Carbon Dioxide 20 L BUN 59 H Creatinine Glucose 140 H POC Glucose 139 H 117 H Lactic Acid Calcium Magnesium Iron TIBC Ferritin AST ALT Lactate Dehydrogenase Troponin T C-Reactive Protein Total Protein Albumin Prealbumin Cholesterol LDL Cholesterol Direct HDL Cholesterol Urine WBC (Auto) Vancomycin Trough Coronavirus (PCR) Crossmatch 07/15/19 07/16/19 07/16/19 18:13 00:06 03:43 WBC RBC Hgb Hct MCV MCH MCHC RDW Plt Count Lymph % (Auto) [place] % (Auto) Lymph # [place] # Baso # Seg Neutrophils % Seg Neuts % (Manual) Lymphocytes % (Manual) Monocytes % (Manual) Basophils % (Manual) Nucleated RBC % Seg Neutrophils # Seg Neutrophils # Man Lymphocytes # (Manual) Monocytes # (Manual) Eosinophils # (Manual) Basophils # (Manual) PT INR D-Dimer ABG pH 7.344 L ABG pO2 68.6 L ABG HCO3 ABG O2 Saturation ABG Base Excess -3.5 L ABG Hemoglobin 6.1 L Oxyhemoglobin 93.3 L Sodium Potassium Chloride Carbon Dioxide BUN Creatinine Glucose POC Glucose 114 H 119 H Lactic Acid Calcium Magnesium Iron TIBC Ferritin AST ALT Lactate Dehydrogenase Troponin T C-Reactive Protein Total Protein Albumin Prealbumin Cholesterol LDL Cholesterol Direct HDL Cholesterol Urine WBC (Auto) Vancomycin Trough Coronavirus (PCR) Crossmatch 07/16/19 07/16/19 07/16/19 04:41 04:41 12:09 WBC 19.6 H RBC 2.81 L Hgb 7.7 L Hct 24.0 L MCV MCH 27 L MCHC RDW 19.4 H Plt Count 514 H Lymph % (Auto) 6.7 L [place] % (Auto) Lymph # [place] # 1.0 H Baso # Seg Neutrophils % 87.0 H Seg Neuts % (Manual) Lymphocytes % (Manual) Monocytes % (Manual) Basophils % (Manual) Nucleated RBC % Seg Neutrophils # 17.0 H Seg Neutrophils # Man Lymphocytes # (Manual) Monocytes # (Manual) Eosinophils # (Manual) Basophils # (Manual) PT INR D-Dimer ABG pH ABG pO2 ABG HCO3 ABG O2 Saturation ABG Base Excess ABG Hemoglobin Oxyhemoglobin Sodium Potassium 5.9 H Chloride Carbon Dioxide 21 L BUN 73 H Creatinine 2.0 H Glucose POC Glucose 141 H Lactic Acid Calcium Magnesium Iron TIBC Ferritin AST ALT Lactate Dehydrogenase Troponin T C-Reactive Protein Total Protein Albumin Prealbumin Cholesterol LDL Cholesterol Direct HDL Cholesterol Urine WBC (Auto) Vancomycin Trough Coronavirus (PCR) Crossmatch 07/16/19 07/16/19 07/17/19 16:19 17:45 00:16 WBC RBC Hgb Hct MCV MCH MCHC RDW Plt Count Lymph % (Auto) [place] % (Auto) Lymph # [place] # Baso # Seg Neutrophils % Seg Neuts % (Manual) Lymphocytes % (Manual) Monocytes % (Manual) Basophils % (Manual) Nucleated RBC % Seg Neutrophils # Seg Neutrophils # Man Lymphocytes # (Manual) Monocytes # (Manual) Eosinophils # (Manual) Basophils # (Manual) PT INR D-Dimer ABG pH ABG pO2 ABG HCO3 ABG O2 Saturation ABG Base Excess ABG Hemoglobin Oxyhemoglobin Sodium Potassium 5.1 H Chloride Carbon Dioxide 20 L BUN 72 H Creatinine 1.7 H Glucose 128 H POC Glucose 181 H 164 H Lactic Acid Calcium Magnesium Iron TIBC Ferritin AST ALT Lactate Dehydrogenase Troponin T C-Reactive Protein Total Protein Albumin Prealbumin Cholesterol LDL Cholesterol Direct HDL Cholesterol Urine WBC (Auto) Vancomycin Trough Coronavirus (PCR) Crossmatch 07/17/19 07/17/19 07/17/19 04:20 04:39 04:39 WBC 16.1 H RBC 2.92 L Hgb 8.0 L Hct 25.5 L MCV MCH MCHC 31 L RDW 19.7 H Plt Count 564 H Lymph % (Auto) 3.6 L [place] % (Auto) 7.4 H Lymph # 0.6 L [place] # 1.2 H Baso # Seg Neutrophils % 87.5 H Seg Neuts % (Manual) Lymphocytes % (Manual) Monocytes % (Manual) Basophils % (Manual) Nucleated RBC % Seg Neutrophils # 14.1 H Seg Neutrophils # Man Lymphocytes # (Manual) Monocytes # (Manual) Eosinophils # (Manual) Basophils # (Manual) PT INR D-Dimer ABG pH 7.231 L ABG pO2 95.3 H ABG HCO3 ABG O2 Saturation ABG Base Excess -5.0 L ABG Hemoglobin 7.9 L Oxyhemoglobin 94.8 L Sodium Potassium Chloride 107.8 H Carbon Dioxide 21 L BUN 68 H Creatinine Glucose POC Glucose Lactic Acid Calcium Magnesium Iron TIBC Ferritin AST ALT Lactate Dehydrogenase Troponin T C-Reactive Protein Total Protein Albumin Prealbumin Cholesterol LDL Cholesterol Direct HDL Cholesterol Urine WBC (Auto) Vancomycin Trough Coronavirus (PCR) Crossmatch 07/17/19 07/17/19 07/17/19 05:28 12:11 18:48 WBC RBC Hgb Hct MCV MCH MCHC RDW Plt Count Lymph % (Auto) [place] % (Auto) Lymph # [place] # Baso # Seg Neutrophils % Seg Neuts % (Manual) Lymphocytes % (Manual) Monocytes % (Manual) Basophils % (Manual) Nucleated RBC % Seg Neutrophils # Seg Neutrophils # Man Lymphocytes # (Manual) Monocytes # (Manual) Eosinophils # (Manual) Basophils # (Manual) PT INR D-Dimer ABG pH ABG pO2 ABG HCO3 ABG O2 Saturation ABG Base Excess ABG Hemoglobin Oxyhemoglobin Sodium Potassium Chloride Carbon Dioxide BUN Creatinine Glucose POC Glucose 121 H 125 H 174 H Lactic Acid Calcium Magnesium Iron TIBC Ferritin AST ALT Lactate Dehydrogenase Troponin T C-Reactive Protein Total Protein Albumin Prealbumin Cholesterol LDL Cholesterol Direct HDL Cholesterol Urine WBC (Auto) Vancomycin Trough Coronavirus (PCR) Crossmatch 07/17/19 07/17/19 07/18/19 19:55 23:57 02:30 WBC RBC Hgb Hct MCV MCH MCHC RDW Plt Count Lymph % (Auto) [place] % (Auto) Lymph # [place] # Baso # Seg Neutrophils % Seg Neuts % (Manual) Lymphocytes % (Manual) Monocytes % (Manual) Basophils % (Manual) Nucleated RBC % Seg Neutrophils # Seg Neutrophils # Man Lymphocytes # (Manual) Monocytes # (Manual) Eosinophils # (Manual) Basophils # (Manual) PT INR D-Dimer ABG pH 7.344 L 7.294 L ABG pO2 78.5 L 119.2 H ABG HCO3 ABG O2 Saturation ABG Base Excess -3.3 L -2.6 L ABG Hemoglobin 8.6 L 8.1 L Oxyhemoglobin 94.8 L Sodium Potassium Chloride Carbon Dioxide BUN Creatinine Glucose POC Glucose 148 H Lactic Acid Calcium Magnesium Iron TIBC Ferritin AST ALT Lactate Dehydrogenase Troponin T C-Reactive Protein Total Protein Albumin Prealbumin Cholesterol LDL Cholesterol Direct HDL Cholesterol Urine WBC (Auto) Vancomycin Trough Coronavirus (PCR) Crossmatch 07/18/19 07/18/19 07/18/19 04:49 05:22 05:22 WBC 15.9 H RBC 3.00 L Hgb 8.1 L Hct 26.0 L MCV MCH 27 L MCHC 31 L RDW 19.4 H Plt Count 733 H Lymph % (Auto) 6.3 L [place] % (Auto) 7.4 H Lymph # 1.0 L [place] # 1.2 H Baso # 0.2 H Seg Neutrophils % 83.8 H Seg Neuts % (Manual) Lymphocytes % (Manual) Monocytes % (Manual) Basophils % (Manual) Nucleated RBC % Seg Neutrophils # 13.3 H Seg Neutrophils # Man Lymphocytes # (Manual) Monocytes # (Manual) Eosinophils # (Manual) Basophils # (Manual) PT INR D-Dimer ABG pH ABG pO2 ABG HCO3 ABG O2 Saturation ABG Base Excess ABG Hemoglobin Oxyhemoglobin Sodium Potassium Chloride 110.6 H Carbon Dioxide BUN 61 H Creatinine Glucose 109 H POC Glucose 116 H Lactic Acid Calcium Magnesium Iron TIBC Ferritin AST ALT Lactate Dehydrogenase Troponin T C-Reactive Protein Total Protein Albumin Prealbumin Cholesterol LDL Cholesterol Direct HDL Cholesterol Urine WBC (Auto) Vancomycin Trough Coronavirus (PCR) Crossmatch 07/18/19 07/18/19 07/18/19 12:23 18:06 22:20 WBC RBC Hgb Hct MCV MCH MCHC RDW Plt Count Lymph % (Auto) [place] % (Auto) Lymph # [place] # Baso # Seg Neutrophils % Seg Neuts % (Manual) Lymphocytes % (Manual) Monocytes % (Manual) Basophils % (Manual) Nucleated RBC % Seg Neutrophils # Seg Neutrophils # Man Lymphocytes # (Manual) Monocytes # (Manual) Eosinophils # (Manual) Basophils # (Manual) PT INR D-Dimer ABG pH 7.338 L ABG pO2 135.1 H ABG HCO3 ABG O2 Saturation ABG Base Excess ABG Hemoglobin 9.2 L Oxyhemoglobin Sodium Potassium Chloride Carbon Dioxide BUN Creatinine Glucose POC Glucose 114 H 113 H Lactic Acid Calcium Magnesium Iron TIBC Ferritin AST ALT Lactate Dehydrogenase Troponin T C-Reactive Protein Total Protein Albumin Prealbumin Cholesterol LDL Cholesterol Direct HDL Cholesterol Urine WBC (Auto) Vancomycin Trough Coronavirus (PCR) Crossmatch 07/18/19 07/19/19 07/19/19 23:33 03:45 05:18 WBC RBC Hgb Hct MCV MCH MCHC RDW Plt Count Lymph % (Auto) [place] % (Auto) Lymph # [place] # Baso # Seg Neutrophils % Seg Neuts % (Manual) Lymphocytes % (Manual) Monocytes % (Manual) Basophils % (Manual) Nucleated RBC % Seg Neutrophils # Seg Neutrophils # Man Lymphocytes # (Manual) Monocytes # (Manual) Eosinophils # (Manual) Basophils # (Manual) PT INR D-Dimer ABG pH 7.342 L ABG pO2 95.0 H ABG HCO3 ABG O2 Saturation ABG Base Excess ABG Hemoglobin 8.5 L Oxyhemoglobin Sodium Potassium Chloride Carbon Dioxide BUN Creatinine Glucose POC Glucose 125 H 111 H Lactic Acid Calcium Magnesium Iron TIBC Ferritin AST ALT Lactate Dehydrogenase Troponin T C-Reactive Protein Total Protein Albumin Prealbumin Cholesterol LDL Cholesterol Direct HDL Cholesterol Urine WBC (Auto) Vancomycin Trough Coronavirus (PCR) Crossmatch 07/19/19 07/19/19 07/19/19 08:45 08:45 11:47 WBC 15.9 H RBC 3.31 L Hgb 9.1 L Hct 28.4 L MCV MCH 27 L MCHC RDW 19.1 H Plt Count 858 H Lymph % (Auto) 4.9 L [place] % (Auto) 8.1 H Lymph # 0.8 L [place] # 1.3 H Baso # Seg Neutrophils % 85.5 H Seg Neuts % (Manual) Lymphocytes % (Manual) Monocytes % (Manual) Basophils % (Manual) Nucleated RBC % Seg Neutrophils # 13.6 H Seg Neutrophils # Man Lymphocytes # (Manual) Monocytes # (Manual) Eosinophils # (Manual) Basophils # (Manual) PT INR D-Dimer ABG pH ABG pO2 ABG HCO3 ABG O2 Saturation ABG Base Excess ABG Hemoglobin Oxyhemoglobin Sodium Potassium Chloride 111.6 H Carbon Dioxide BUN 50 H Creatinine 0.7 L Glucose 118 H POC Glucose 114 H Lactic Acid Calcium Magnesium Iron TIBC Ferritin AST ALT Lactate Dehydrogenase Troponin T C-Reactive Protein Total Protein Albumin Prealbumin Cholesterol LDL Cholesterol Direct HDL Cholesterol Urine WBC (Auto) Vancomycin Trough Coronavirus (PCR) Crossmatch 07/19/19 07/19/19 07/20/19 18:25 23:44 04:39 WBC RBC Hgb Hct MCV MCH MCHC RDW Plt Count Lymph % (Auto) [place] % (Auto) Lymph # [place] # Baso # Seg Neutrophils % Seg Neuts % (Manual) Lymphocytes % (Manual) Monocytes % (Manual) Basophils % (Manual) Nucleated RBC % Seg Neutrophils # Seg Neutrophils # Man Lymphocytes # (Manual) Monocytes # (Manual) Eosinophils # (Manual) Basophils # (Manual) PT INR D-Dimer ABG pH ABG pO2 ABG HCO3 ABG O2 Saturation ABG Base Excess ABG Hemoglobin Oxyhemoglobin Sodium Potassium Chloride 110.3 H Carbon Dioxide BUN 44 H Creatinine 0.6 L Glucose 120 H POC Glucose 115 H 117 H Lactic Acid Calcium Magnesium Iron TIBC Ferritin AST ALT Lactate Dehydrogenase Troponin T C-Reactive Protein Total Protein Albumin Prealbumin Cholesterol LDL Cholesterol Direct HDL Cholesterol Urine WBC (Auto) Vancomycin Trough Coronavirus (PCR) Crossmatch 07/20/19 07/21/19 07/21/19 05:30 11:59 17:40 WBC RBC Hgb Hct MCV MCH MCHC RDW Plt Count Lymph % (Auto) [place] % (Auto) Lymph # [place] # Baso # Seg Neutrophils % Seg Neuts % (Manual) Lymphocytes % (Manual) Monocytes % (Manual) Basophils % (Manual) Nucleated RBC % Seg Neutrophils # Seg Neutrophils # Man Lymphocytes # (Manual) Monocytes # (Manual) Eosinophils # (Manual) Basophils # (Manual) PT INR D-Dimer ABG pH ABG pO2 ABG HCO3 ABG O2 Saturation ABG Base Excess ABG Hemoglobin Oxyhemoglobin Sodium Potassium Chloride Carbon Dioxide BUN Creatinine Glucose POC Glucose 131 H 122 H 125 H Lactic Acid Calcium Magnesium Iron TIBC Ferritin AST ALT Lactate Dehydrogenase Troponin T C-Reactive Protein Total Protein Albumin Prealbumin Cholesterol LDL Cholesterol Direct HDL Cholesterol Urine WBC (Auto) Vancomycin Trough Coronavirus (PCR) Crossmatch 07/22/19 07/22/19 07/22/19 05:38 05:38 12:29 WBC 12.6 H RBC 3.19 L Hgb 8.9 L Hct 27.5 L MCV MCH MCHC RDW 18.9 H Plt Count 1101 H* Lymph % (Auto) [place] % (Auto) 12.2 H Lymph # [place] # 1.5 H Baso # Seg Neutrophils % 72.8 H Seg Neuts % (Manual) 76.0 H Lymphocytes % (Manual) 7.0 L Monocytes % (Manual) 14.0 H Basophils % (Manual) Nucleated RBC % 1.0 H Seg Neutrophils # 9.2 H Seg Neutrophils # Man 9.6 H Lymphocytes # (Manual) 0.9 L Monocytes # (Manual) 1.8 H Eosinophils # (Manual) Basophils # (Manual) PT INR D-Dimer ABG pH ABG pO2 ABG HCO3 ABG O2 Saturation ABG Base Excess ABG Hemoglobin Oxyhemoglobin Sodium Potassium 3.4 L Chloride Carbon Dioxide BUN 29 H Creatinine 0.5 L Glucose POC Glucose 116 H Lactic Acid Calcium Magnesium Iron TIBC Ferritin AST ALT Lactate Dehydrogenase Troponin T C-Reactive Protein Total Protein Albumin Prealbumin Cholesterol LDL Cholesterol Direct HDL Cholesterol Urine WBC (Auto) Vancomycin Trough Coronavirus (PCR) Crossmatch 07/22/19 07/22/19 07/23/19 18:20 23:51 04:52 WBC RBC Hgb Hct MCV MCH MCHC RDW Plt Count Lymph % (Auto) [place] % (Auto) Lymph # [place] # Baso # Seg Neutrophils % Seg Neuts % (Manual) Lymphocytes % (Manual) Monocytes % (Manual) Basophils % (Manual) Nucleated RBC % Seg Neutrophils # Seg Neutrophils # Man Lymphocytes # (Manual) Monocytes # (Manual) Eosinophils # (Manual) Basophils # (Manual) PT INR D-Dimer ABG pH ABG pO2 ABG HCO3 ABG O2 Saturation ABG Base Excess ABG Hemoglobin Oxyhemoglobin Sodium Potassium Chloride Carbon Dioxide BUN 24 H Creatinine 0.4 L Glucose POC Glucose 107 H 110 H Lactic Acid Calcium Magnesium Iron TIBC Ferritin AST ALT Lactate Dehydrogenase Troponin T C-Reactive Protein Total Protein Albumin Prealbumin Cholesterol LDL Cholesterol Direct HDL Cholesterol Urine WBC (Auto) Vancomycin Trough Coronavirus (PCR) Crossmatch 07/23/19 07/23/19 07/24/19 06:00 23:15 04:40 WBC RBC Hgb Hct MCV MCH MCHC RDW Plt Count Lymph % (Auto) [place] % (Auto) Lymph # [place] # Baso # Seg Neutrophils % Seg Neuts % (Manual) Lymphocytes % (Manual) Monocytes % (Manual) Basophils % (Manual) Nucleated RBC % Seg Neutrophils # Seg Neutrophils # Man Lymphocytes # (Manual) Monocytes # (Manual) Eosinophils # (Manual) Basophils # (Manual) PT INR D-Dimer ABG pH ABG pO2 73.5 L ABG HCO3 27.0 H 28.5 H ABG O2 Saturation 94.5 L ABG Base Excess ABG Hemoglobin 9.4 L 8.9 L Oxyhemoglobin 94.0 L 92.7 L Sodium Potassium Chloride Carbon Dioxide BUN Creatinine Glucose POC Glucose 117 H Lactic Acid Calcium Magnesium Iron TIBC Ferritin AST ALT Lactate Dehydrogenase Troponin T C-Reactive Protein Total Protein Albumin Prealbumin Cholesterol LDL Cholesterol Direct HDL Cholesterol Urine WBC (Auto) Vancomycin Trough Coronavirus (PCR) Crossmatch 07/24/19 07/24/19 07/25/19 05:25 12:06 00:16 WBC RBC Hgb Hct MCV MCH MCHC RDW Plt Count Lymph % (Auto) [place] % (Auto) Lymph # [place] # Baso # Seg Neutrophils % Seg Neuts % (Manual) Lymphocytes % (Manual) Monocytes % (Manual) Basophils % (Manual) Nucleated RBC % Seg Neutrophils # Seg Neutrophils # Man Lymphocytes # (Manual) Monocytes # (Manual) Eosinophils # (Manual) Basophils # (Manual) PT INR D-Dimer ABG pH ABG pO2 ABG HCO3 ABG O2 Saturation ABG Base Excess ABG Hemoglobin Oxyhemoglobin Sodium Potassium Chloride Carbon Dioxide BUN Creatinine Glucose POC Glucose 114 H 108 H 106 H Lactic Acid Calcium Magnesium Iron TIBC Ferritin AST ALT Lactate Dehydrogenase Troponin T C-Reactive Protein Total Protein Albumin Prealbumin Cholesterol LDL Cholesterol Direct HDL Cholesterol Urine WBC (Auto) Vancomycin Trough Coronavirus (PCR) Crossmatch 07/25/19 07/25/19 07/25/19 05:14 05:14 05:17 WBC 17.8 H RBC 3.32 L Hgb 9.2 L Hct 28.6 L MCV MCH MCHC RDW 19.9 H Plt Count 994 H Lymph % (Auto) [place] % (Auto) Lymph # [place] # Baso # Seg Neutrophils % Seg Neuts % (Manual) 82.0 H Lymphocytes % (Manual) 5.0 L Monocytes % (Manual) Basophils % (Manual) Nucleated RBC % Seg Neutrophils # Seg Neutrophils # Man 14.6 H Lymphocytes # (Manual) 0.9 L Monocytes # (Manual) 1.2 H Eosinophils # (Manual) Basophils # (Manual) PT INR D-Dimer ABG pH ABG pO2 ABG HCO3 ABG O2 Saturation ABG Base Excess ABG Hemoglobin Oxyhemoglobin Sodium Potassium Chloride Carbon Dioxide BUN Creatinine 0.4 L Glucose 110 H POC Glucose 107 H Lactic Acid Calcium Magnesium Iron TIBC Ferritin AST ALT Lactate Dehydrogenase Troponin T C-Reactive Protein Total Protein Albumin Prealbumin Cholesterol LDL Cholesterol Direct HDL Cholesterol Urine WBC (Auto) Vancomycin Trough Coronavirus (PCR) Crossmatch 07/25/19 07/25/19 07/26/19 11:55 23:49 06:01 WBC RBC Hgb Hct MCV MCH MCHC RDW Plt Count Lymph % (Auto) [place] % (Auto) Lymph # [place] # Baso # Seg Neutrophils % Seg Neuts % (Manual) Lymphocytes % (Manual) Monocytes % (Manual) Basophils % (Manual) Nucleated RBC % Seg Neutrophils # Seg Neutrophils # Man Lymphocytes # (Manual) Monocytes # (Manual) Eosinophils # (Manual) Basophils # (Manual) PT INR D-Dimer ABG pH ABG pO2 ABG HCO3 ABG O2 Saturation ABG Base Excess ABG Hemoglobin Oxyhemoglobin Sodium Potassium Chloride Carbon Dioxide BUN Creatinine Glucose POC Glucose 123 H 118 H 106 H Lactic Acid Calcium Magnesium Iron TIBC Ferritin AST ALT Lactate Dehydrogenase Troponin T C-Reactive Protein Total Protein Albumin Prealbumin Cholesterol LDL Cholesterol Direct HDL Cholesterol Urine WBC (Auto) Vancomycin Trough Coronavirus (PCR) Crossmatch 07/26/19 07/27/19 07/27/19 17:02 00:28 05:16 WBC RBC Hgb Hct MCV MCH MCHC RDW Plt Count Lymph % (Auto) [place] % (Auto) Lymph # [place] # Baso # Seg Neutrophils % Seg Neuts % (Manual) Lymphocytes % (Manual) Monocytes % (Manual) Basophils % (Manual) Nucleated RBC % Seg Neutrophils # Seg Neutrophils # Man Lymphocytes # (Manual) Monocytes # (Manual) Eosinophils # (Manual) Basophils # (Manual) PT INR D-Dimer ABG pH ABG pO2 63.4 L ABG HCO3 31.3 H ABG O2 Saturation 92.7 L ABG Base Excess 6.3 H ABG Hemoglobin 7.6 L Oxyhemoglobin 90.9 L Sodium Potassium Chloride Carbon Dioxide BUN Creatinine Glucose POC Glucose 116 H 158 H Lactic Acid Calcium Magnesium Iron TIBC Ferritin AST ALT Lactate Dehydrogenase Troponin T C-Reactive Protein Total Protein Albumin Prealbumin Cholesterol LDL Cholesterol Direct HDL Cholesterol Urine WBC (Auto) Vancomycin Trough Coronavirus (PCR) Crossmatch 07/28/19 07/28/19 07/28/19 10:13 10:13 23:54 WBC 18.5 H RBC 3.20 L Hgb 8.8 L Hct 26.8 L MCV MCH 27 L MCHC RDW 19.9 H Plt Count 730 H Lymph % (Auto) [place] % (Auto) Lymph # [place] # Baso # Seg Neutrophils % Seg Neuts % (Manual) Lymphocytes % (Manual) Monocytes % (Manual) Basophils % (Manual) Nucleated RBC % Seg Neutrophils # Seg Neutrophils # Man Lymphocytes # (Manual) Monocytes # (Manual) Eosinophils # (Manual) Basophils # (Manual) PT INR D-Dimer ABG pH ABG pO2 ABG HCO3 ABG O2 Saturation ABG Base Excess ABG Hemoglobin Oxyhemoglobin Sodium Potassium 3.2 L Chloride 97.5 L Carbon Dioxide 31 H BUN Creatinine 0.5 L Glucose POC Glucose 120 H Lactic Acid Calcium Magnesium Iron TIBC Ferritin AST ALT Lactate Dehydrogenase Troponin T C-Reactive Protein Total Protein Albumin Prealbumin Cholesterol LDL Cholesterol Direct HDL Cholesterol Urine WBC (Auto) Vancomycin Trough Coronavirus (PCR) Crossmatch 07/29/19 07/29/19 07/29/19 11:57 17:43 Unknown WBC RBC Hgb Hct MCV MCH MCHC RDW Plt Count Lymph % (Auto) [place] % (Auto) Lymph # [place] # Baso # Seg Neutrophils % Seg Neuts % (Manual) Lymphocytes % (Manual) Monocytes % (Manual) Basophils % (Manual) Nucleated RBC % Seg Neutrophils # Seg Neutrophils # Man Lymphocytes # (Manual) Monocytes # (Manual) Eosinophils # (Manual) Basophils # (Manual) PT INR D-Dimer ABG pH ABG pO2 ABG HCO3 ABG O2 Saturation ABG Base Excess ABG Hemoglobin Oxyhemoglobin Sodium Potassium Chloride Carbon Dioxide BUN Creatinine Glucose POC Glucose 112 H Lactic Acid Calcium Magnesium Iron TIBC Ferritin AST ALT Lactate Dehydrogenase Troponin T C-Reactive Protein Total Protein Albumin Prealbumin Cholesterol LDL Cholesterol Direct HDL Cholesterol Urine WBC (Auto) 63.0 H Vancomycin Trough Coronavirus (PCR) Positive A Crossmatch 07/30/19 07/30/19 07/30/19 00:20 04:35 04:35 WBC 24.3 H RBC 3.12 L Hgb 8.5 L Hct 26.3 L MCV MCH 27 L MCHC RDW 20.2 H Plt Count 550 H Lymph % (Auto) [place] % (Auto) Lymph # [place] # Baso # Seg Neutrophils % Seg Neuts % (Manual) Lymphocytes % (Manual) Monocytes % (Manual) Basophils % (Manual) Nucleated RBC % Seg Neutrophils # Seg Neutrophils # Man Lymphocytes # (Manual) Monocytes # (Manual) Eosinophils # (Manual) Basophils # (Manual) PT INR D-Dimer ABG pH ABG pO2 ABG HCO3 ABG O2 Saturation ABG Base Excess ABG Hemoglobin Oxyhemoglobin Sodium Potassium 3.0 L Chloride 96.3 L Carbon Dioxide 32 H BUN Creatinine 0.5 L Glucose POC Glucose 106 H Lactic Acid Calcium Magnesium Iron TIBC Ferritin AST ALT Lactate Dehydrogenase Troponin T C-Reactive Protein Total Protein Albumin Prealbumin Cholesterol LDL Cholesterol Direct HDL Cholesterol Urine WBC (Auto) Vancomycin Trough Coronavirus (PCR) Crossmatch 07/31/19 07/31/19 07/31/19 04:42 04:42 11:33 WBC 23.8 H RBC 3.10 L Hgb 8.4 L Hct 26.1 L MCV MCH 27 L MCHC RDW 19.6 H Plt Count 561 H Lymph % (Auto) [place] % (Auto) Lymph # [place] # Baso # Seg Neutrophils % Seg Neuts % (Manual) Lymphocytes % (Manual) Monocytes % (Manual) Basophils % (Manual) Nucleated RBC % Seg Neutrophils # Seg Neutrophils # Man Lymphocytes # (Manual) Monocytes # (Manual) Eosinophils # (Manual) Basophils # (Manual) PT INR D-Dimer ABG pH ABG pO2 ABG HCO3 ABG O2 Saturation ABG Base Excess ABG Hemoglobin Oxyhemoglobin Sodium 135 L Potassium Chloride 93.9 L Carbon Dioxide 32 H BUN Creatinine 0.4 L Glucose POC Glucose 116 H Lactic Acid Calcium Magnesium Iron TIBC Ferritin AST ALT Lactate Dehydrogenase Troponin T C-Reactive Protein Total Protein Albumin 1.6 L Prealbumin 0.037 L Cholesterol LDL Cholesterol Direct HDL Cholesterol Urine WBC (Auto) Vancomycin Trough Coronavirus (PCR) Crossmatch 07/31/19 08/01/19 08/01/19 23:33 04:57 04:57 WBC 26.7 H RBC 3.12 L Hgb 8.5 L Hct 26.3 L MCV MCH 27 L MCHC RDW 19.2 H Plt Count 602 H Lymph % (Auto) [place] % (Auto) Lymph # [place] # Baso # Seg Neutrophils % Seg Neuts % (Manual) 93.0 H Lymphocytes % (Manual) 2.0 L Monocytes % (Manual) Basophils % (Manual) Nucleated RBC % Seg Neutrophils # Seg Neutrophils # Man 24.8 H Lymphocytes # (Manual) 0.5 L Monocytes # (Manual) 1.1 H Eosinophils # (Manual) Basophils # (Manual) PT INR D-Dimer ABG pH ABG pO2 ABG HCO3 ABG O2 Saturation ABG Base Excess ABG Hemoglobin Oxyhemoglobin Sodium 132 L Potassium Chloride 93.8 L Carbon Dioxide 31 H BUN Creatinine 0.3 L Glucose POC Glucose 148 H Lactic Acid Calcium 8.1 L Magnesium Iron TIBC Ferritin AST ALT Lactate Dehydrogenase Troponin T C-Reactive Protein Total Protein Albumin Prealbumin Cholesterol LDL Cholesterol Direct HDL Cholesterol Urine WBC (Auto) Vancomycin Trough Coronavirus (PCR) Crossmatch 08/01/19 08/02/19 08/02/19 12:16 00:22 05:24 WBC RBC Hgb Hct MCV MCH MCHC RDW Plt Count Lymph % (Auto) [place] % (Auto) Lymph # [place] # Baso # Seg Neutrophils % Seg Neuts % (Manual) Lymphocytes % (Manual) Monocytes % (Manual) Basophils % (Manual) Nucleated RBC % Seg Neutrophils # Seg Neutrophils # Man Lymphocytes # (Manual) Monocytes # (Manual) Eosinophils # (Manual) Basophils # (Manual) PT INR D-Dimer ABG pH ABG pO2 ABG HCO3 ABG O2 Saturation ABG Base Excess ABG Hemoglobin Oxyhemoglobin Sodium Potassium Chloride Carbon Dioxide BUN Creatinine Glucose POC Glucose 120 H 119 H 113 H Lactic Acid Calcium Magnesium Iron TIBC Ferritin AST ALT Lactate Dehydrogenase Troponin T C-Reactive Protein Total Protein Albumin Prealbumin Cholesterol LDL Cholesterol Direct HDL Cholesterol Urine WBC (Auto) Vancomycin Trough Coronavirus (PCR) Crossmatch 08/03/19 08/03/19 08/03/19 05:20 12:01 23:48 WBC RBC Hgb Hct MCV MCH MCHC RDW Plt Count Lymph % (Auto) [place] % (Auto) Lymph # [place] # Baso # Seg Neutrophils % Seg Neuts % (Manual) Lymphocytes % (Manual) Monocytes % (Manual) Basophils % (Manual) Nucleated RBC % Seg Neutrophils # Seg Neutrophils # Man Lymphocytes # (Manual) Monocytes # (Manual) Eosinophils # (Manual) Basophils # (Manual) PT INR D-Dimer ABG pH ABG pO2 ABG HCO3 ABG O2 Saturation ABG Base Excess ABG Hemoglobin Oxyhemoglobin Sodium Potassium Chloride Carbon Dioxide BUN Creatinine Glucose POC Glucose 118 H 106 H 120 H Lactic Acid Calcium Magnesium Iron TIBC Ferritin AST ALT Lactate Dehydrogenase Troponin T C-Reactive Protein Total Protein Albumin Prealbumin Cholesterol LDL Cholesterol Direct HDL Cholesterol Urine WBC (Auto) Vancomycin Trough Coronavirus (PCR) Crossmatch 08/04/19 08/04/19 08/04/19 05:38 05:38 06:29 WBC 26.1 H RBC 2.77 L Hgb 7.5 L Hct 23.2 L MCV MCH 27 L MCHC RDW 19.2 H Plt Count 648 H Lymph % (Auto) [place] % (Auto) Lymph # [place] # Baso # Seg Neutrophils % Seg Neuts % (Manual) 90.5 H Lymphocytes % (Manual) 3.5 L Monocytes % (Manual) Basophils % (Manual) Nucleated RBC % Seg Neutrophils # Seg Neutrophils # Man 23.6 H Lymphocytes # (Manual) 0.9 L Monocytes # (Manual) 1.2 H Eosinophils # (Manual) Basophils # (Manual) PT INR D-Dimer ABG pH ABG pO2 ABG HCO3 ABG O2 Saturation ABG Base Excess ABG Hemoglobin Oxyhemoglobin Sodium 132 L Potassium 3.4 L D Chloride 92.7 L Carbon Dioxide 33 H BUN Creatinine 0.2 L Glucose POC Glucose 108 H Lactic Acid Calcium 8.1 L Magnesium Iron TIBC Ferritin AST ALT Lactate Dehydrogenase Troponin T C-Reactive Protein Total Protein Albumin Prealbumin Cholesterol LDL Cholesterol Direct HDL Cholesterol Urine WBC (Auto) Vancomycin Trough Coronavirus (PCR) Crossmatch 08/04/19 08/05/19 08/05/19 12:30 04:58 04:58 WBC 21.0 H RBC 2.63 L Hgb 7.2 L Hct 21.9 L MCV 83 L MCH 27 L MCHC RDW 18.9 H Plt Count 691 H Lymph % (Auto) [place] % (Auto) Lymph # [place] # Baso # Seg Neutrophils % Seg Neuts % (Manual) 86.0 H Lymphocytes % (Manual) 3.0 L Monocytes % (Manual) 10.0 H Basophils % (Manual) Nucleated RBC % Seg Neutrophils # Seg Neutrophils # Man 18.1 H Lymphocytes # (Manual) 0.6 L Monocytes # (Manual) 2.1 H Eosinophils # (Manual) Basophils # (Manual) PT INR D-Dimer ABG pH ABG pO2 ABG HCO3 ABG O2 Saturation ABG Base Excess ABG Hemoglobin Oxyhemoglobin Sodium 134 L Potassium 3.2 L Chloride 93.2 L Carbon Dioxide 34 H BUN 8 L Creatinine 0.3 L Glucose POC Glucose 138 H Lactic Acid Calcium 8.1 L Magnesium Iron TIBC Ferritin AST ALT Lactate Dehydrogenase Troponin T C-Reactive Protein Total Protein Albumin Prealbumin Cholesterol LDL Cholesterol Direct HDL Cholesterol Urine WBC (Auto) Vancomycin Trough Coronavirus (PCR) Crossmatch 08/05/19 08/05/19 08/05/19 11:53 17:57 23:58 WBC RBC Hgb Hct MCV MCH MCHC RDW Plt Count Lymph % (Auto) [place] % (Auto) Lymph # [place] # Baso # Seg Neutrophils % Seg Neuts % (Manual) Lymphocytes % (Manual) Monocytes % (Manual) Basophils % (Manual) Nucleated RBC % Seg Neutrophils # Seg Neutrophils # Man Lymphocytes # (Manual) Monocytes # (Manual) Eosinophils # (Manual) Basophils # (Manual) PT INR D-Dimer ABG pH ABG pO2 ABG HCO3 ABG O2 Saturation ABG Base Excess ABG Hemoglobin Oxyhemoglobin Sodium Potassium Chloride Carbon Dioxide BUN Creatinine Glucose POC Glucose 106 H 111 H 116 H Lactic Acid Calcium Magnesium Iron TIBC Ferritin AST ALT Lactate Dehydrogenase Troponin T C-Reactive Protein Total Protein Albumin Prealbumin Cholesterol LDL Cholesterol Direct HDL Cholesterol Urine WBC (Auto) Vancomycin Trough Coronavirus (PCR) Crossmatch 08/06/19 08/06/19 08/06/19 04:11 04:11 06:04 WBC 20.8 H RBC 2.80 L Hgb 7.6 L Hct 23.5 L MCV MCH 27 L MCHC RDW 19.0 H Plt Count 723 H Lymph % (Auto) [place] % (Auto) Lymph # [place] # Baso # Seg Neutrophils % Seg Neuts % (Manual) 88.0 H Lymphocytes % (Manual) 3.0 L Monocytes % (Manual) Basophils % (Manual) Nucleated RBC % Seg Neutrophils # Seg Neutrophils # Man 18.3 H Lymphocytes # (Manual) 0.6 L Monocytes # (Manual) Eosinophils # (Manual) Basophils # (Manual) 0.2 H PT INR D-Dimer ABG pH ABG pO2 ABG HCO3 ABG O2 Saturation ABG Base Excess ABG Hemoglobin Oxyhemoglobin Sodium Potassium 3.4 L Chloride 95.2 L Carbon Dioxide 32 H BUN Creatinine 0.3 L Glucose POC Glucose 108 H Lactic Acid Calcium 8.2 L Magnesium Iron TIBC Ferritin AST ALT Lactate Dehydrogenase Troponin T C-Reactive Protein Total Protein Albumin Prealbumin Cholesterol LDL Cholesterol Direct HDL Cholesterol Urine WBC (Auto) Vancomycin Trough Coronavirus (PCR) Crossmatch 08/06/19 08/06/19 08/07/19 12:23 17:13 00:21 WBC RBC Hgb Hct MCV MCH MCHC RDW Plt Count Lymph % (Auto) [place] % (Auto) Lymph # [place] # Baso # Seg Neutrophils % Seg Neuts % (Manual) Lymphocytes % (Manual) Monocytes % (Manual) Basophils % (Manual) Nucleated RBC % Seg Neutrophils # Seg Neutrophils # Man Lymphocytes # (Manual) Monocytes # (Manual) Eosinophils # (Manual) Basophils # (Manual) PT INR D-Dimer ABG pH ABG pO2 ABG HCO3 ABG O2 Saturation ABG Base Excess ABG Hemoglobin Oxyhemoglobin Sodium Potassium Chloride Carbon Dioxide BUN Creatinine Glucose POC Glucose 112 H 132 H 147 H Lactic Acid Calcium Magnesium Iron TIBC Ferritin AST ALT Lactate Dehydrogenase Troponin T C-Reactive Protein Total Protein Albumin Prealbumin Cholesterol LDL Cholesterol Direct HDL Cholesterol Urine WBC (Auto) Vancomycin Trough Coronavirus (PCR) Crossmatch 08/07/19 08/07/19 08/07/19 05:16 05:23 05:23 WBC 30.3 H RBC 2.69 L Hgb 7.1 L Hct 22.2 L MCV 83 L MCH 27 L MCHC RDW 19.1 H Plt Count 650 H Lymph % (Auto) [place] % (Auto) Lymph # [place] # Baso # Seg Neutrophils % Seg Neuts % (Manual) 88.0 H Lymphocytes % (Manual) 5.0 L Monocytes % (Manual) Basophils % (Manual) Nucleated RBC % Seg Neutrophils # Seg Neutrophils # Man 26.7 H Lymphocytes # (Manual) Monocytes # (Manual) 2.1 H Eosinophils # (Manual) Basophils # (Manual) PT INR D-Dimer ABG pH ABG pO2 ABG HCO3 ABG O2 Saturation ABG Base Excess ABG Hemoglobin Oxyhemoglobin Sodium 135 L Potassium 3.4 L Chloride 95.4 L Carbon Dioxide 32 H BUN Creatinine 0.4 L Glucose 120 H POC Glucose 120 H Lactic Acid Calcium 7.7 L Magnesium Iron TIBC Ferritin AST ALT Lactate Dehydrogenase Troponin T C-Reactive Protein Total Protein Albumin Prealbumin Cholesterol LDL Cholesterol Direct HDL Cholesterol Urine WBC (Auto) Vancomycin Trough Coronavirus (PCR) Crossmatch 08/07/19 08/07/19 08/07/19 10:24 10:24 11:10 WBC RBC Hgb Hct MCV MCH MCHC RDW Plt Count Lymph % (Auto) [place] % (Auto) Lymph # [place] # Baso # Seg Neutrophils % Seg Neuts % (Manual) Lymphocytes % (Manual) Monocytes % (Manual) Basophils % (Manual) Nucleated RBC % Seg Neutrophils # Seg Neutrophils # Man Lymphocytes # (Manual) Monocytes # (Manual) Eosinophils # (Manual) Basophils # (Manual) PT INR D-Dimer 1808.06 H ABG pH ABG pO2 73.3 L ABG HCO3 33.9 H ABG O2 Saturation ABG Base Excess 9.0 H ABG Hemoglobin 6.3 L Oxyhemoglobin 94.3 L Sodium Potassium Chloride Carbon Dioxide BUN Creatinine Glucose POC Glucose Lactic Acid Calcium Magnesium Iron TIBC Ferritin AST ALT Lactate Dehydrogenase Troponin T C-Reactive Protein 11.10 H Total Protein Albumin Prealbumin Cholesterol LDL Cholesterol Direct HDL Cholesterol Urine WBC (Auto) Vancomycin Trough Coronavirus (PCR) Crossmatch 08/07/19 08/08/19 08/08/19 12:01 04:41 04:41 WBC 22.1 H RBC 2.82 L Hgb 7.7 L Hct 23.6 L MCV MCH 27 L MCHC RDW 19.1 H Plt Count 722 H Lymph % (Auto) [place] % (Auto) Lymph # [place] # Baso # Seg Neutrophils % Seg Neuts % (Manual) 90.0 H Lymphocytes % (Manual) 3.0 L Monocytes % (Manual) Basophils % (Manual) Nucleated RBC % Seg Neutrophils # Seg Neutrophils # Man 19.9 H Lymphocytes # (Manual) 0.7 L Monocytes # (Manual) 1.3 H Eosinophils # (Manual) Basophils # (Manual) PT INR D-Dimer ABG pH ABG pO2 ABG HCO3 ABG O2 Saturation ABG Base Excess ABG Hemoglobin Oxyhemoglobin Sodium 136 L Potassium Chloride 97.8 L Carbon Dioxide BUN Creatinine 0.3 L Glucose 105 H POC Glucose 130 H Lactic Acid Calcium 7.8 L Magnesium Iron TIBC Ferritin AST ALT Lactate Dehydrogenase Troponin T C-Reactive Protein Total Protein Albumin Prealbumin Cholesterol LDL Cholesterol Direct HDL Cholesterol Urine WBC (Auto) Vancomycin Trough Coronavirus (PCR) Crossmatch 08/08/19 08/08/19 08/09/19 11:46 18:35 00:12 WBC RBC Hgb Hct MCV MCH MCHC RDW Plt Count Lymph % (Auto) [place] % (Auto) Lymph # [place] # Baso # Seg Neutrophils % Seg Neuts % (Manual) Lymphocytes % (Manual) Monocytes % (Manual) Basophils % (Manual) Nucleated RBC % Seg Neutrophils # Seg Neutrophils # Man Lymphocytes # (Manual) Monocytes # (Manual) Eosinophils # (Manual) Basophils # (Manual) PT INR D-Dimer ABG pH ABG pO2 ABG HCO3 ABG O2 Saturation ABG Base Excess ABG Hemoglobin Oxyhemoglobin Sodium Potassium Chloride Carbon Dioxide BUN Creatinine Glucose POC Glucose 117 H 117 H 117 H Lactic Acid Calcium Magnesium Iron TIBC Ferritin AST ALT Lactate Dehydrogenase Troponin T C-Reactive Protein Total Protein Albumin Prealbumin Cholesterol LDL Cholesterol Direct HDL Cholesterol Urine WBC (Auto) Vancomycin Trough Coronavirus (PCR) Crossmatch 08/09/19 08/09/19 08/09/19 05:33 12:22 17:48 WBC RBC Hgb Hct MCV MCH MCHC RDW Plt Count Lymph % (Auto) [place] % (Auto) Lymph # [place] # Baso # Seg Neutrophils % Seg Neuts % (Manual) Lymphocytes % (Manual) Monocytes % (Manual) Basophils % (Manual) Nucleated RBC % Seg Neutrophils # Seg Neutrophils # Man Lymphocytes # (Manual) Monocytes # (Manual) Eosinophils # (Manual) Basophils # (Manual) PT INR D-Dimer ABG pH ABG pO2 ABG HCO3 ABG O2 Saturation ABG Base Excess ABG Hemoglobin Oxyhemoglobin Sodium Potassium Chloride Carbon Dioxide BUN Creatinine Glucose POC Glucose 119 H 133 H 123 H Lactic Acid Calcium Magnesium Iron TIBC Ferritin AST ALT Lactate Dehydrogenase Troponin T C-Reactive Protein Total Protein Albumin Prealbumin Cholesterol LDL Cholesterol Direct HDL Cholesterol Urine WBC (Auto) Vancomycin Trough Coronavirus (PCR) Crossmatch 08/09/19 08/09/19 08/10/19 17:59 18:15 00:02 WBC RBC Hgb 6.7 L Hct 20.4 L MCV MCH MCHC RDW Plt Count Lymph % (Auto) [place] % (Auto) Lymph # [place] # Baso # Seg Neutrophils % Seg Neuts % (Manual) Lymphocytes % (Manual) Monocytes % (Manual) Basophils % (Manual) Nucleated RBC % Seg Neutrophils # Seg Neutrophils # Man Lymphocytes # (Manual) Monocytes # (Manual) Eosinophils # (Manual) Basophils # (Manual) PT INR D-Dimer ABG pH ABG pO2 ABG HCO3 ABG O2 Saturation ABG Base Excess ABG Hemoglobin Oxyhemoglobin Sodium Potassium Chloride Carbon Dioxide BUN Creatinine Glucose POC Glucose 124 H Lactic Acid Calcium Magnesium Iron TIBC Ferritin AST ALT Lactate Dehydrogenase Troponin T C-Reactive Protein Total Protein Albumin Prealbumin Cholesterol LDL Cholesterol Direct HDL Cholesterol Urine WBC (Auto) Vancomycin Trough Coronavirus (PCR) Crossmatch See Detail 08/10/19 08/10/19 08/10/19 05:47 08:00 08:00 WBC 16.9 H RBC 2.94 L Hgb 8.2 L Hct 24.9 L MCV MCH MCHC RDW 17.0 H Plt Count 661 H Lymph % (Auto) [place] % (Auto) Lymph # [place] # Baso # Seg Neutrophils % Seg Neuts % (Manual) Lymphocytes % (Manual) Monocytes % (Manual) Basophils % (Manual) Nucleated RBC % Seg Neutrophils # Seg Neutrophils # Man Lymphocytes # (Manual) Monocytes # (Manual) Eosinophils # (Manual) Basophils # (Manual) PT INR D-Dimer ABG pH ABG pO2 ABG HCO3 ABG O2 Saturation ABG Base Excess ABG Hemoglobin Oxyhemoglobin Sodium Potassium Chloride Carbon Dioxide BUN Creatinine 0.3 L Glucose 116 H POC Glucose 148 H Lactic Acid Calcium 7.7 L Magnesium Iron TIBC Ferritin AST ALT Lactate Dehydrogenase Troponin T C-Reactive Protein Total Protein Albumin Prealbumin Cholesterol LDL Cholesterol Direct HDL Cholesterol Urine WBC (Auto) Vancomycin Trough Coronavirus (PCR) Crossmatch 08/10/19 08/10/19 08/10/19 12:38 18:06 23:56 WBC RBC Hgb Hct MCV MCH MCHC RDW Plt Count Lymph % (Auto) [place] % (Auto) Lymph # [place] # Baso # Seg Neutrophils % Seg Neuts % (Manual) Lymphocytes % (Manual) Monocytes % (Manual) Basophils % (Manual) Nucleated RBC % Seg Neutrophils # Seg Neutrophils # Man Lymphocytes # (Manual) Monocytes # (Manual) Eosinophils # (Manual) Basophils # (Manual) PT INR D-Dimer ABG pH ABG pO2 ABG HCO3 ABG O2 Saturation ABG Base Excess ABG Hemoglobin Oxyhemoglobin Sodium Potassium Chloride Carbon Dioxide BUN Creatinine Glucose POC Glucose 113 H 126 H 115 H Lactic Acid Calcium Magnesium Iron TIBC Ferritin AST ALT Lactate Dehydrogenase Troponin T C-Reactive Protein Total Protein Albumin Prealbumin Cholesterol LDL Cholesterol Direct HDL Cholesterol Urine WBC (Auto) Vancomycin Trough Coronavirus (PCR) Crossmatch 08/10/19 08/11/19 08/12/19 Unknown 18:10 03:30 WBC 14.4 H RBC 2.58 L Hgb 7.4 L Hct 22.1 L MCV MCH MCHC RDW 17.4 H Plt Count 786 H Lymph % (Auto) [place] % (Auto) Lymph # [place] # Baso # Seg Neutrophils % Seg Neuts % (Manual) Lymphocytes % (Manual) Monocytes % (Manual) Basophils % (Manual) Nucleated RBC % Seg Neutrophils # Seg Neutrophils # Man Lymphocytes # (Manual) Monocytes # (Manual) Eosinophils # (Manual) Basophils # (Manual) PT INR D-Dimer ABG pH ABG pO2 ABG HCO3 ABG O2 Saturation ABG Base Excess ABG Hemoglobin Oxyhemoglobin Sodium Potassium Chloride Carbon Dioxide BUN Creatinine Glucose POC Glucose 106 H Lactic Acid Calcium Magnesium Iron TIBC Ferritin AST ALT Lactate Dehydrogenase Troponin T C-Reactive Protein Total Protein Albumin Prealbumin Cholesterol LDL Cholesterol Direct HDL Cholesterol Urine WBC (Auto) Vancomycin Trough Coronavirus (PCR) Positive A Crossmatch 08/12/19 08/12/19 08/13/19 03:30 12:08 05:25 WBC RBC Hgb Hct MCV MCH MCHC RDW Plt Count Lymph % (Auto) [place] % (Auto) Lymph # [place] # Baso # Seg Neutrophils % Seg Neuts % (Manual) Lymphocytes % (Manual) Monocytes % (Manual) Basophils % (Manual) Nucleated RBC % Seg Neutrophils # Seg Neutrophils # Man Lymphocytes # (Manual) Monocytes # (Manual) Eosinophils # (Manual) Basophils # (Manual) PT INR D-Dimer ABG pH ABG pO2 ABG HCO3 ABG O2 Saturation ABG Base Excess ABG Hemoglobin Oxyhemoglobin Sodium Potassium Chloride Carbon Dioxide BUN 7 L Creatinine 0.3 L Glucose 117 H POC Glucose 112 H 126 H Lactic Acid Calcium 7.8 L Magnesium Iron TIBC Ferritin AST ALT Lactate Dehydrogenase Troponin T C-Reactive Protein Total Protein Albumin Prealbumin Cholesterol LDL Cholesterol Direct HDL Cholesterol Urine WBC (Auto) Vancomycin Trough Coronavirus (PCR) Crossmatch 08/13/19 08/13/19 08/13/19 11:36 17:10 19:06 WBC RBC Hgb Hct MCV MCH MCHC RDW Plt Count Lymph % (Auto) [place] % (Auto) Lymph # [place] # Baso # Seg Neutrophils % Seg Neuts % (Manual) Lymphocytes % (Manual) Monocytes % (Manual) Basophils % (Manual) Nucleated RBC % Seg Neutrophils # Seg Neutrophils # Man Lymphocytes # (Manual) Monocytes # (Manual) Eosinophils # (Manual) Basophils # (Manual) PT INR D-Dimer ABG pH ABG pO2 105.0 H ABG HCO3 28.5 H ABG O2 Saturation ABG Base Excess 3.5 H ABG Hemoglobin 7.8 L Oxyhemoglobin Sodium Potassium Chloride Carbon Dioxide BUN Creatinine Glucose POC Glucose 143 H 107 H Lactic Acid Calcium Magnesium Iron TIBC Ferritin AST ALT Lactate Dehydrogenase Troponin T C-Reactive Protein Total Protein Albumin Prealbumin Cholesterol LDL Cholesterol Direct HDL Cholesterol Urine WBC (Auto) Vancomycin Trough Coronavirus (PCR) Crossmatch 08/13/19 08/14/19 08/14/19 23:23 05:00 05:00 WBC 14.3 H RBC 2.76 L Hgb 7.8 L Hct 23.9 L MCV MCH MCHC RDW 18.7 H Plt Count 896 H Lymph % (Auto) [place] % (Auto) Lymph # [place] # Baso # Seg Neutrophils % Seg Neuts % (Manual) Lymphocytes % (Manual) Monocytes % (Manual) Basophils % (Manual) Nucleated RBC % Seg Neutrophils # Seg Neutrophils # Man Lymphocytes # (Manual) Monocytes # (Manual) Eosinophils # (Manual) Basophils # (Manual) PT INR D-Dimer ABG pH ABG pO2 ABG HCO3 ABG O2 Saturation ABG Base Excess ABG Hemoglobin Oxyhemoglobin Sodium Potassium Chloride Carbon Dioxide BUN 6 L Creatinine 0.3 L Glucose POC Glucose 125 H Lactic Acid Calcium 8.2 L Magnesium Iron TIBC Ferritin AST ALT Lactate Dehydrogenase Troponin T C-Reactive Protein Total Protein Albumin Prealbumin Cholesterol LDL Cholesterol Direct HDL Cholesterol Urine WBC (Auto) Vancomycin Trough Coronavirus (PCR) Crossmatch 08/14/19 08/15/19 08/15/19 05:07 00:25 05:42 WBC RBC Hgb Hct MCV MCH MCHC RDW Plt Count Lymph % (Auto) [place] % (Auto) Lymph # [place] # Baso # Seg Neutrophils % Seg Neuts % (Manual) Lymphocytes % (Manual) Monocytes % (Manual) Basophils % (Manual) Nucleated RBC % Seg Neutrophils # Seg Neutrophils # Man Lymphocytes # (Manual) Monocytes # (Manual) Eosinophils # (Manual) Basophils # (Manual) PT INR D-Dimer ABG pH ABG pO2 ABG HCO3 ABG O2 Saturation ABG Base Excess ABG Hemoglobin Oxyhemoglobin Sodium Potassium Chloride Carbon Dioxide BUN Creatinine Glucose POC Glucose 128 H 117 H 115 H Lactic Acid Calcium Magnesium Iron TIBC Ferritin AST ALT Lactate Dehydrogenase Troponin T C-Reactive Protein Total Protein Albumin Prealbumin Cholesterol LDL Cholesterol Direct HDL Cholesterol Urine WBC (Auto) Vancomycin Trough Coronavirus (PCR) Crossmatch 08/15/19 08/15/19 08/15/19 06:10 06:10 06:10 WBC 11.6 H RBC 2.68 L Hgb 7.7 L Hct 23.3 L MCV MCH MCHC RDW 19.2 H Plt Count 885 H Lymph % (Auto) [place] % (Auto) Lymph # [place] # Baso # Seg Neutrophils % Seg Neuts % (Manual) Lymphocytes % (Manual) Monocytes % (Manual) Basophils % (Manual) Nucleated RBC % Seg Neutrophils # Seg Neutrophils # Man Lymphocytes # (Manual) Monocytes # (Manual) Eosinophils # (Manual) Basophils # (Manual) PT INR D-Dimer ABG pH ABG pO2 ABG HCO3 ABG O2 Saturation ABG Base Excess ABG Hemoglobin Oxyhemoglobin Sodium Potassium Chloride Carbon Dioxide BUN 6 L Creatinine 0.3 L Glucose 107 H POC Glucose Lactic Acid Calcium 8.2 L Magnesium 1.50 L Iron TIBC Ferritin AST ALT Lactate Dehydrogenase Troponin T C-Reactive Protein Total Protein Albumin Prealbumin Cholesterol LDL Cholesterol Direct HDL Cholesterol Urine WBC (Auto) Vancomycin Trough Coronavirus (PCR) Crossmatch 08/15/19 08/16/19 08/16/19 12:12 00:05 05:00 WBC 13.3 H RBC 2.87 L Hgb 8.1 L Hct 24.9 L MCV MCH MCHC RDW 18.7 H Plt Count 962 H Lymph % (Auto) [place] % (Auto) Lymph # [place] # Baso # Seg Neutrophils % Seg Neuts % (Manual) Lymphocytes % (Manual) Monocytes % (Manual) Basophils % (Manual) Nucleated RBC % Seg Neutrophils # Seg Neutrophils # Man Lymphocytes # (Manual) Monocytes # (Manual) Eosinophils # (Manual) Basophils # (Manual) PT INR D-Dimer ABG pH ABG pO2 ABG HCO3 ABG O2 Saturation ABG Base Excess ABG Hemoglobin Oxyhemoglobin Sodium Potassium Chloride Carbon Dioxide BUN Creatinine Glucose POC Glucose 112 H 111 H Lactic Acid Calcium Magnesium Iron TIBC Ferritin AST ALT Lactate Dehydrogenase Troponin T C-Reactive Protein Total Protein Albumin Prealbumin Cholesterol LDL Cholesterol Direct HDL Cholesterol Urine WBC (Auto) Vancomycin Trough Coronavirus (PCR) Crossmatch 08/16/19 08/16/19 08/16/19 05:00 05:00 23:35 WBC RBC Hgb Hct MCV MCH MCHC RDW Plt Count Lymph % (Auto) [place] % (Auto) Lymph # [place] # Baso # Seg Neutrophils % Seg Neuts % (Manual) Lymphocytes % (Manual) Monocytes % (Manual) Basophils % (Manual) Nucleated RBC % Seg Neutrophils # Seg Neutrophils # Man Lymphocytes # (Manual) Monocytes # (Manual) Eosinophils # (Manual) Basophils # (Manual) PT INR D-Dimer ABG pH ABG pO2 ABG HCO3 ABG O2 Saturation ABG Base Excess ABG Hemoglobin Oxyhemoglobin Sodium 135 L Potassium Chloride Carbon Dioxide BUN 6 L Creatinine 0.3 L Glucose POC Glucose 108 H Lactic Acid Calcium 8.2 L Magnesium Iron TIBC Ferritin AST ALT Lactate Dehydrogenase Troponin T C-Reactive Protein 2.70 H Total Protein Albumin 2.1 L Prealbumin Cholesterol LDL Cholesterol Direct HDL Cholesterol Urine WBC (Auto) Vancomycin Trough Coronavirus (PCR) Crossmatch 08/17/19 08/17/19 08/17/19 05:15 20:20 23:42 WBC RBC Hgb Hct MCV MCH MCHC RDW Plt Count Lymph % (Auto) [place] % (Auto) Lymph # [place] # Baso # Seg Neutrophils % Seg Neuts % (Manual) Lymphocytes % (Manual) Monocytes % (Manual) Basophils % (Manual) Nucleated RBC % Seg Neutrophils # Seg Neutrophils # Man Lymphocytes # (Manual) Monocytes # (Manual) Eosinophils # (Manual) Basophils # (Manual) PT INR D-Dimer ABG pH ABG pO2 ABG HCO3 27.8 H ABG O2 Saturation ABG Base Excess ABG Hemoglobin 11.4 L Oxyhemoglobin 94.6 L Sodium Potassium Chloride Carbon Dioxide BUN Creatinine Glucose POC Glucose 138 H 132 H Lactic Acid Calcium Magnesium Iron TIBC Ferritin AST ALT Lactate Dehydrogenase Troponin T C-Reactive Protein Total Protein Albumin Prealbumin Cholesterol LDL Cholesterol Direct HDL Cholesterol Urine WBC (Auto) Vancomycin Trough Coronavirus (PCR) Crossmatch 08/18/19 08/18/19 08/18/19 06:00 06:00 12:02 WBC 19.7 H RBC 3.30 L Hgb 9.3 L Hct 28.5 L MCV MCH MCHC RDW 18.9 H Plt Count 923 H Lymph % (Auto) [place] % (Auto) Lymph # [place] # Baso # Seg Neutrophils % Seg Neuts % (Manual) Lymphocytes % (Manual) Monocytes % (Manual) Basophils % (Manual) Nucleated RBC % Seg Neutrophils # Seg Neutrophils # Man Lymphocytes # (Manual) Monocytes # (Manual) Eosinophils # (Manual) Basophils # (Manual) PT INR D-Dimer ABG pH ABG pO2 ABG HCO3 ABG O2 Saturation ABG Base Excess ABG Hemoglobin Oxyhemoglobin Sodium 136 L Potassium Chloride Carbon Dioxide BUN Creatinine 0.4 L Glucose 71 L POC Glucose 123 H Lactic Acid Calcium Magnesium Iron TIBC Ferritin AST ALT Lactate Dehydrogenase Troponin T C-Reactive Protein Total Protein Albumin Prealbumin Cholesterol LDL Cholesterol Direct HDL Cholesterol Urine WBC (Auto) Vancomycin Trough Coronavirus (PCR) Crossmatch 08/18/19 08/18/19 08/19/19 18:23 23:16 04:57 WBC RBC Hgb Hct MCV MCH MCHC RDW Plt Count Lymph % (Auto) [place] % (Auto) Lymph # [place] # Baso # Seg Neutrophils % Seg Neuts % (Manual) Lymphocytes % (Manual) Monocytes % (Manual) Basophils % (Manual) Nucleated RBC % Seg Neutrophils # Seg Neutrophils # Man Lymphocytes # (Manual) Monocytes # (Manual) Eosinophils # (Manual) Basophils # (Manual) PT INR D-Dimer ABG pH ABG pO2 ABG HCO3 ABG O2 Saturation ABG Base Excess ABG Hemoglobin Oxyhemoglobin Sodium Potassium Chloride Carbon Dioxide BUN Creatinine Glucose POC Glucose 140 H 159 H 134 H Lactic Acid Calcium Magnesium Iron TIBC Ferritin AST ALT Lactate Dehydrogenase Troponin T C-Reactive Protein Total Protein Albumin Prealbumin Cholesterol LDL Cholesterol Direct HDL Cholesterol Urine WBC (Auto) Vancomycin Trough Coronavirus (PCR) Crossmatch 08/19/19 08/19/19 08/19/19 07:44 08:17 18:15 WBC 30.5 H RBC 2.87 L Hgb 7.9 L Hct 24.5 L MCV MCH MCHC RDW 18.8 H Plt Count 772 H Lymph % (Auto) [place] % (Auto) Lymph # [place] # Baso # Seg Neutrophils % Seg Neuts % (Manual) 89.0 H Lymphocytes % (Manual) 4.0 L Monocytes % (Manual) Basophils % (Manual) 2.0 H Nucleated RBC % Seg Neutrophils # Seg Neutrophils # Man 27.1 H Lymphocytes # (Manual) Monocytes # (Manual) 0.9 H Eosinophils # (Manual) 0.6 H Basophils # (Manual) 0.6 H PT INR D-Dimer ABG pH ABG pO2 ABG HCO3 ABG O2 Saturation ABG Base Excess ABG Hemoglobin Oxyhemoglobin Sodium 136 L Potassium Chloride Carbon Dioxide BUN Creatinine 0.3 L Glucose POC Glucose 106 H Lactic Acid Calcium 8.2 L Magnesium Iron TIBC Ferritin AST ALT Lactate Dehydrogenase Troponin T C-Reactive Protein Total Protein Albumin Prealbumin Cholesterol LDL Cholesterol Direct HDL Cholesterol Urine WBC (Auto) Vancomycin Trough Coronavirus (PCR) Crossmatch 08/19/19 08/20/19 08/20/19 23:46 06:20 18:34 WBC RBC Hgb Hct MCV MCH MCHC RDW Plt Count Lymph % (Auto) [place] % (Auto) Lymph # [place] # Baso # Seg Neutrophils % Seg Neuts % (Manual) Lymphocytes % (Manual) Monocytes % (Manual) Basophils % (Manual) Nucleated RBC % Seg Neutrophils # Seg Neutrophils # Man Lymphocytes # (Manual) Monocytes # (Manual) Eosinophils # (Manual) Basophils # (Manual) PT INR D-Dimer ABG pH ABG pO2 ABG HCO3 ABG O2 Saturation ABG Base Excess ABG Hemoglobin Oxyhemoglobin Sodium Potassium Chloride Carbon Dioxide BUN Creatinine Glucose POC Glucose 144 H 115 H 125 H Lactic Acid Calcium Magnesium Iron TIBC Ferritin AST ALT Lactate Dehydrogenase Troponin T C-Reactive Protein Total Protein Albumin Prealbumin Cholesterol LDL Cholesterol Direct HDL Cholesterol Urine WBC (Auto) Vancomycin Trough Coronavirus (PCR) Crossmatch 08/20/19 08/20/19 08/21/19 Unknown Unknown 11:56 WBC 18.7 H RBC 2.70 L Hgb 7.6 L Hct 23.1 L MCV MCH MCHC RDW 18.9 H Plt Count 690 H Lymph % (Auto) [place] % (Auto) Lymph # [place] # Baso # Seg Neutrophils % Seg Neuts % (Manual) Lymphocytes % (Manual) Monocytes % (Manual) Basophils % (Manual) Nucleated RBC % Seg Neutrophils # Seg Neutrophils # Man Lymphocytes # (Manual) Monocytes # (Manual) Eosinophils # (Manual) Basophils # (Manual) PT INR D-Dimer ABG pH ABG pO2 ABG HCO3 ABG O2 Saturation ABG Base Excess ABG Hemoglobin Oxyhemoglobin Sodium 134 L Potassium Chloride 97.9 L Carbon Dioxide BUN Creatinine 0.3 L Glucose 115 H POC Glucose 116 H Lactic Acid Calcium 8.2 L Magnesium Iron TIBC Ferritin AST ALT Lactate Dehydrogenase Troponin T C-Reactive Protein Total Protein Albumin Prealbumin Cholesterol LDL Cholesterol Direct HDL Cholesterol Urine WBC (Auto) Vancomycin Trough Coronavirus (PCR) Crossmatch 08/21/19 08/22/19 08/22/19 18:14 00:31 05:53 WBC RBC Hgb Hct MCV MCH MCHC RDW Plt Count Lymph % (Auto) [place] % (Auto) Lymph # [place] # Baso # Seg Neutrophils % Seg Neuts % (Manual) Lymphocytes % (Manual) Monocytes % (Manual) Basophils % (Manual) Nucleated RBC % Seg Neutrophils # Seg Neutrophils # Man Lymphocytes # (Manual) Monocytes # (Manual) Eosinophils # (Manual) Basophils # (Manual) PT INR D-Dimer ABG pH ABG pO2 ABG HCO3 ABG O2 Saturation ABG Base Excess ABG Hemoglobin Oxyhemoglobin Sodium Potassium Chloride Carbon Dioxide BUN Creatinine Glucose POC Glucose 113 H 106 H 109 H Lactic Acid Calcium Magnesium Iron TIBC Ferritin AST ALT Lactate Dehydrogenase Troponin T C-Reactive Protein Total Protein Albumin Prealbumin Cholesterol LDL Cholesterol Direct HDL Cholesterol Urine WBC (Auto) Vancomycin Trough Coronavirus (PCR) Crossmatch 08/22/19 08/23/19 08/23/19 18:35 00:18 06:00 WBC 12.3 H RBC 2.92 L Hgb 8.0 L Hct 24.6 L MCV MCH MCHC RDW 18.5 H Plt Count 661 H Lymph % (Auto) 11.7 L [place] % (Auto) 9.2 H Lymph # [place] # 1.1 H Baso # Seg Neutrophils % 75.6 H Seg Neuts % (Manual) Lymphocytes % (Manual) Monocytes % (Manual) Basophils % (Manual) Nucleated RBC % Seg Neutrophils # 9.3 H Seg Neutrophils # Man Lymphocytes # (Manual) Monocytes # (Manual) Eosinophils # (Manual) Basophils # (Manual) PT INR D-Dimer ABG pH ABG pO2 ABG HCO3 ABG O2 Saturation ABG Base Excess ABG Hemoglobin Oxyhemoglobin Sodium Potassium Chloride Carbon Dioxide BUN Creatinine Glucose POC Glucose 130 H 124 H Lactic Acid Calcium Magnesium Iron TIBC Ferritin AST ALT Lactate Dehydrogenase Troponin T C-Reactive Protein Total Protein Albumin Prealbumin Cholesterol LDL Cholesterol Direct HDL Cholesterol Urine WBC (Auto) Vancomycin Trough Coronavirus (PCR) Crossmatch 08/23/19 06:09 WBC RBC Hgb Hct MCV MCH MCHC RDW Plt Count Lymph % (Auto) [place] % (Auto) Lymph # [place] # Baso # Seg Neutrophils % Seg Neuts % (Manual) Lymphocytes % (Manual) Monocytes % (Manual) Basophils % (Manual) Nucleated RBC % Seg Neutrophils # Seg Neutrophils # Man Lymphocytes # (Manual) Monocytes # (Manual) Eosinophils # (Manual) Basophils # (Manual) PT INR D-Dimer ABG pH ABG pO2 ABG HCO3 ABG O2 Saturation ABG Base Excess ABG Hemoglobin Oxyhemoglobin Sodium Potassium Chloride Carbon Dioxide BUN Creatinine Glucose POC Glucose 117 H Lactic Acid Calcium Magnesium Iron TIBC Ferritin AST ALT Lactate Dehydrogenase Troponin T C-Reactive Protein Total Protein Albumin Prealbumin Cholesterol LDL Cholesterol Direct HDL Cholesterol Urine WBC (Auto) Vancomycin Trough Coronavirus (PCR) Crossmatch Allied health notes reviewed: nursing
--- NOTE | 2019-08-23 11:40 | Progress Note ---
Assessment and Plan Cultures: 07/03/2019 urine culture: No growth 07/03/2019 Tracheal aspirate: E.coli 07/29/2019 urine culture: neg 07/30/2019 blood culture: no growth tracheal asp + Pseudomonas 08/06/2019 blood culture: no growth 08/09/2019 Wound MDR Enterobacter 08/16/2019 blood culture: no growth to date 08/20/2019 COVID-19 PCR: negative A/P: 69-year-old male with CVA, hypertension, dementia, schizophrenia, alcohol use disorder was admitted to the emergency room after being brought in by EMS with progressive shortness of breath and unresponsiveness. He was noted to have agonal breathing and a faint pulse requiring CPR. It seems patient was on hospice recently, prior to admission. #Shock, likely septic: shock resolved, remains off pressors. still intermittent fever, leukocytosis worse again: bacterial pneumonia vs sacral decubitus infection. #Non-resolving pneumonia/Cavitary pneumonia: ? abscess. Sputum +Pseudomonas. CT shows RUL pneumonia with 2.4 cm cavity and LLL pneumonia with moderate left pleural effusion. No need for thoracentesis per Pulm. #Penile/scrotal and buttocks wounds: ?cellulitis #Sacral decubitus: worsening on last exam ? necrotic. Evaluated for surgery, no indications for intervention. 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 bleeding overnight s/p surgical management bedside, 08/09/2019 Wound MDR Enterobacter likely a colonizer (superficial wound cx) #UTI: per documentation initial carroll placed on 07/03, exchanged on 07/31. #Severe COVID-19 disease and pneumonia: Markers improving. Completed Plaquenil. Completed Ceftriaxone for treatment E.coli in tracheal aspirate. Repeat COVID finally negative on 08/20/2019. #Acute respiratory failure: remains on mechanical ventilation. #Multiple skin tears documented on admission #Anemia: from sacral wound bleeding Recs: Continue IV Levofloxacin Day 5 Continues to have intermittent fevers, several possible causes. WBC though is trending down. Overall prognosis is extremely poor. Awaiting trach/PEG Continue wound care Yanna Calzada MD, FACP [facility] ([facility] C: [phone] O: [phone] F: [phone] Subjective Date of service: 08/23/19 Principal diagnosis: Bilateral pneumonia, severe sepsis with septic shock, encephalopathy Interval history: Again febrile. Remains on the vent, in ICU. Awaiting trach and PEG. Objective - Exam Narrative Exam: Physical Exam (reviewed in chart due to PPE conservation) Constitutional: intubated, sedated, on the vent Head, Ears, Nose: normocephalic, atraumatic Eyes: limited due to PPE conservation strategy Neck: intubated Oral: intubated Cardiovascular: limited due to PPE conservation strategy Respiratory: limited due to PPE conservation strategy GI: limited due to PPE conservation strategy Musculoskeletal: limited due to PPE conservation strategy Skin: limited due to PPE conservation strategy. Decubitus + Hem/Lymphatic: limited due to PPE conservation strategy Psych: no agitation Neurological: sedated, intubated, on the vent, exam limited - Constitutional Vitals: Vital Signs Temp Pulse Resp BP Pulse Ox 98.2 F 100 H 21 127/69 100 08/23/19 08:00 08/23/19 10:00 08/23/19 10:00 08/23/19 10:00 08/23/19 10:00 Temperature -Last 24 Hours Temperature 98.2 F Temperature 98.0 F Temperature 101.0 F Temperature 100.3 F Temperature 100 F Temperature 100.1 F Temperature 99.1 F - Labs CBC & Chem 7: 08/23/19 06:00 08/20/19 Unknown Labs: Abnormal lab results 08/22/19 08/23/19 08/23/19 Range/Units 18:35 00:18 06:00 WBC 12.3 H (4.5-11.0) K/mm3 RBC 2.92 L (3.65-5.03) M/mm3 Hgb 8.0 L (11.8-15.2) gm/dl Hct 24.6 L (35.5-45.6) % RDW 18.5 H (13.2-15.2) % Plt Count 661 H (140-440) K/mm3 Lymph % (Auto) 11.7 L (13.4-35.0) % [place] % (Auto) 9.2 H (0.0-7.3) % [place] # 1.1 H (0.0-0.8) K/mm3 Seg Neutrophils % 75.6 H (40.0-70.0) % Seg Neutrophils # 9.3 H (1.8-7.7) K/mm3 POC Glucose 130 H 124 H (70-105) 08/23/19 Range/Units 06:09 WBC (4.5-11.0) K/mm3 RBC (3.65-5.03) M/mm3 Hgb (11.8-15.2) gm/dl Hct (35.5-45.6) % RDW (13.2-15.2) % Plt Count (140-440) K/mm3 Lymph % (Auto) (13.4-35.0) % [place] % (Auto) (0.0-7.3) % [place] # (0.0-0.8) K/mm3 Seg Neutrophils % (40.0-70.0) % Seg Neutrophils # (1.8-7.7) K/mm3 POC Glucose 117 H (70-105)
[2019-08-23] MEDS: oxyCODONE /ACETAMINOPHEN 5-325MG TAB PO PRN (14:20)
[2019-08-24] MEDS: INSULIN LISPRO 100 UNIT/ML SUB-Q SCH ×4 (00:33→18:31)
[2019-08-24] MEDS: GLYCOPYRROLATE 1 MG TAB PO SCH ×3 (09:52→20:55)
[2019-08-24] MEDS: SCOPOLAMINE TRANSDERMAL PATCH 72 HR TD SCH ×3 (09:52→12:38)
[2019-08-24] MEDS: levETIRAcetam 500 MG/5 ML ORAL LIQD FEEDTUBE SCH ×2 (09:52→21:51)
[2019-08-24] MEDS: ENOXAPARIN 40 MG/0.4 ML INJ SUB-Q SCH (09:52)
[2019-08-24] MEDS: FAMOTIDINE 20 MG TAB PO SCH ×2 (09:52→21:52)
[2019-08-24] MEDS: fentaNYL 25 MCG/HR PATCH 72HR TD SCH ×3 (09:53→12:38)
[2019-08-24] MEDS: FOLIC ACID 1 MG TAB PO SCH (09:53)
[2019-08-24] MEDS: ASPIRIN 81 MG TAB CHEW PO SCH (09:53)
[2019-08-24] MEDS: SODIUM HYPOCHLORITE, DAKIN'S 1/2 STRENGTH (0.25%) 473 ML TOPICAL SOLN TP SCH ×2 (09:54→21:53)
--- NOTE | 2019-08-24 09:54 | Progress Note ---
Assessment and Plan Assessment and plan: Awaiting trach and PEG, scheduled for 08/31/2019 -- Acute hypoxic respiratory Failure vent dependent Unable to wean, planning trach and PEG Patient needs to have a negative COVID for the procedure Patient's COVID-19 test is negative[08/20/2019] --Bilateral PNA with COVID 19 infection. On ventilatory support, unable to wean Pulmonary critical following --COVid positive pneumonia with severe sepsis Possible abscess, no need for drianage per ID/pULM Received Plaquenil and cefepime, monitor off antibiotics --Recurrent fever: Afebrile last 24/48 hours --COPD with exacerbation Likely due to COVID-19 pneumonia Continue scheduled nebs --Acute metabolic encephalopathy: Unchanged despite no sedation --Septic shock: Improving hemodynamics was treated with Pressors Persistent hypotension, --Anemia, Microcytic persistent s/p total 6 unit of PRBC, today Hb 7.6 today --Pressure Ulcers: concerning for osteomylitis POA/ Scrotal ulcers buttocks, right lateral foot area wound and supportive care --Hyponatremia, resolved --DM type 2: Accu-Chek SCC tube feeding, insulin as needed --h/o HTN Essential, now hypotensive On Levophed --Seizure D/o/CVA/immobility/BIpolar D/o/SCZ Seizure precautions, antiepileptic medications --Severe PCM, TF supportive care, dietary following --patient is DNR- Called and verified information Very poor prognosis, Recommend hospice 08/16: Awaiting negative COVID test for placement of trach and PEG. In the meantime we will continue aggressive attempt to wean patient. Cultures have been reviewed and discussed with infectious disease who is managing treatment at this time. Continue wound care dressing. Multiple skin tears were noted on admission will continue to follow. Patient receiving repeat chest x-ray reviewed today shows stable bilateral pulmonary disease and no acuity noted on KUB due to persistent fever ID reviewing increases acidophil wondering if there is drug fever will follow closely. Prognosis remains guarded. 08/17: Continue current management, monitor WBC, mildly elevated. 08/18: Remains on full ventilatory support mental status still unchanged. Continue supportive care. Antibiotics adjustment per ID. Discussed with nursing staff will do some wound dressing changes today to see progression. My understanding was that the wounds did have significant bleed last time but tamponaded. Will monitor in the setting of anemia. 08/19: Remains on full ventilatory support mental status still unchanged. Repeat COVID19 Testing to allow for Trach and Peg and transfer to LTAC. Continue suppor tive care. Antibiotics adjustment per ID. poor prognosis. b/l chest xray unchanged. continue wound care 08/21/2019: COVID test negative,reconsult surgery for possible trach and PEG , rem ains intubated on vent 08/22/2019: Surgery reevaluated, scheduled trach and PEG for 08/31/2019 .patient is on vent support 08/23/2019; unable to wean, awaiting trach and PEG, clinically no change The high probability of a clinically significant, sudden or life threatening deterioration of the [respiratory, CVS, CERTIFIED PHYSICAL THERAPIST ASSISTANT] system(s) required my full and direct attention, intervention and personal management. The aggregate critical care time was [32] minutes. This time is in addition to time spent performing reported procedures but includes the following: [x] Data Review and interpretation [x] Patient assessment and monitoring of vital signs [x] Documentation [x] Medication orders and management History Interval history: Patient seen and examined at bedside this morning Isolation precautions, PPE protocols followed Patient chronically ill looking Intubated on vent Afebrile Vital signs reviewed Hospitalist Physical - Constitutional Vitals: Temp Pulse Resp BP Pulse Ox 98.8 F 118 H 19 135/77 100 08/24/19 08:00 08/24/19 08:00 08/24/19 08:00 08/24/19 08:00 08/24/19 08:00 General appearance: Present: mild distress, well-nourished, other (On vent) - EENT Eyes: Present: PERRL, EOM intact - Neck Neck: Present: supple, normal ROM - Respiratory Respiratory: bilateral: diminished, rhonchi, negative: rales, wheezing - Cardiovascular Rhythm: regular Heart Sounds: Present: S1 & S2 - Extremities Extremities: abnormal (Chronic changes) - Abdominal General gastrointestinal: soft, non-tender, non-distended, normal bowel sounds - Integumentary Integumentary: Present: clear, warm - Psychiatric Psychiatric: other (Intubated on vent) - Neurologic Neurologic: other (Intubated on vent) HEART Score - HEART Score Troponin: Troponin T 0.013 ng/mL (0.00-0.029) 07/04/19 07:05 Results - Labs CBC & Chem 7: 08/23/19 06:00 08/20/19 Unknown Labs: Laboratory Last Values WBC 12.3 K/mm3 (4.5-11.0) H 08/23/19 06:00 RBC 2.92 M/mm3 (3.65-5.03) L 08/23/19 06:00 Hgb 8.0 gm/dl (11.8-15.2) L 08/23/19 06:00 Hct 24.6 % (35.5-45.6) L 08/23/19 06:00 MCV 85 fl (84-94) 08/23/19 06:00 MCH 28 pg (28-32) 08/23/19 06:00 MCHC 33 % (32-34) 08/23/19 06:00 RDW 18.5 % (13.2-15.2) H 08/23/19 06:00 Plt Count 661 K/mm3 (140-440) H 08/23/19 06:00 Lymph % (Auto) 11.7 % (13.4-35.0) L 08/23/19 06:00 Stone % (Auto) 9.2 % (0.0-7.3) H 08/23/19 06:00 Eos % (Auto) 2.8 % (0.0-4.3) 08/23/19 06:00 Baso % (Auto) 0.7 % (0.0-1.8) 08/23/19 06:00 Lymph # 1.4 K/mm3 (1.2-5.4) 08/23/19 06:00 Stone # 1.1 K/mm3 (0.0-0.8) H 08/23/19 06:00 Eos # 0.3 K/mm3 (0.0-0.4) 08/23/19 06:00 Baso # 0.1 K/mm3 (0.0-0.1) 08/23/19 06:00 Add Manual Diff Complete 08/19/19 08:17 Total Counted 100 08/19/19 08:17 Seg Neutrophils % 75.6 % (40.0-70.0) H 08/23/19 06:00 Seg Neuts % (Manual) 89.0 % (40.0-70.0) H 08/19/19 08:17 Band Neutrophils % 0 % 08/19/19 08:17 Lymphocytes % (Manual) 4.0 % (13.4-35.0) L 08/19/19 08:17 Reactive Lymphs % (Man) 0 % 08/19/19 08:17 Monocytes % (Manual) 3.0 % (0.0-7.3) 08/19/19 08:17 Eosinophils % (Manual) 2.0 % (0.0-4.3) 08/19/19 08:17 Basophils % (Manual) 2.0 % (0.0-1.8) H 08/19/19 08:17 Metamyelocytes % 0 % 08/19/19 08:17 Myelocytes % 0 % 08/19/19 08:17 Promyelocytes % 0 % 08/19/19 08:17 Blast Cells % 0 % 08/19/19 08:17 Nucleated RBC % Not Reportable 08/19/19 08:17 Seg Neutrophils # 9.3 K/mm3 (1.8-7.7) H 08/23/19 06:00 Seg Neutrophils # Man 27.1 K/mm3 (1.8-7.7) H 08/19/19 08:17 Band Neutrophils # 0.0 K/mm3 08/19/19 08:17 Lymphocytes # (Manual) 1.2 K/mm3 (1.2-5.4) 08/19/19 08:17 Abs React Lymphs (Man) 0.0 K/mm3 08/19/19 08:17 Monocytes # (Manual) 0.9 K/mm3 (0.0-0.8) H 08/19/19 08:17 Eosinophils # (Manual) 0.6 K/mm3 (0.0-0.4) H 08/19/19 08:17 Basophils # (Manual) 0.6 K/mm3 (0.0-0.1) H 08/19/19 08:17 Metamyelocytes # 0.0 K/mm3 08/19/19 08:17 Myelocytes # 0.0 K/mm3 08/19/19 08:17 Promyelocytes # 0.0 K/mm3 08/19/19 08:17 Blast Cells # 0.0 K/mm3 08/19/19 08:17 WBC Morphology Not Reportable 08/19/19 08:17 Hypersegmented Neuts Not Reportable 08/19/19 08:17 Hyposegmented Neuts Not Reportable 08/19/19 08:17 Hypogranular Neuts Not Reportable 08/19/19 08:17 Smudge Cells Not Reportable 08/19/19 08:17 Toxic Granulation Not Reportable 08/19/19 08:17 Toxic Vacuolation Not Reportable 08/19/19 08:17 Dohle Bodies Not Reportable 08/19/19 08:17 Pelger-Huet Anomaly Not Reportable 08/19/19 08:17 Mendy Rods Not Reportable 08/19/19 08:17 Platelet Estimate Consistent w auto 08/19/19 08:17 Clumped Platelets Not Reportable 08/19/19 08:17 Plt Clumps, EDTA Not Reportable 08/19/19 08:17 Large Platelets Not Reportable 08/19/19 08:17 Giant Platelets Not Reportable 08/19/19 08:17 Platelet Satelliting Not Reportable 08/19/19 08:17 Plt Morphology Comment Not Reportable 08/19/19 08:17 RBC Morphology Not Reportable 08/19/19 08:17 Dimorphic RBCs Not Reportable 08/19/19 08:17 Polychromasia Not Reportable 08/19/19 08:17 Hypochromasia 1+ 08/19/19 08:17 Poikilocytosis Not Reportable 08/19/19 08:17 Anisocytosis Few 08/19/19 08:17 Microcytosis Not Reportable 08/19/19 08:17 Macrocytosis Not Reportable 08/19/19 08:17 Spherocytes Not Reportable 08/19/19 08:17 Pappenheimer Bodies Not Reportable 08/19/19 08:17 Sickle Cells Not Reportable 08/19/19 08:17 Target Cells Not Reportable 08/19/19 08:17 Tear Drop Cells Not Reportable 08/19/19 08:17 Ovalocytes Not Reportable 08/19/19 08:17 Stomatocytes Few 08/01/19 04:57 Helmet Cells Not Reportable 08/19/19 08:17 [place] Bodies Not Reportable 08/19/19 08:17 [place] Rings Not Reportable 08/19/19 08:17 Joanne Cells Not Reportable 08/19/19 08:17 Bite Cells Not Reportable 08/19/19 08:17 Crenated Cell Not Reportable 08/19/19 08:17 Elliptocytes Not Reportable 08/19/19 08:17 Acanthocytes (Spur) Not Reportable 08/19/19 08:17 Rouleaux Not Reportable 08/19/19 08:17 Hemoglobin C Crystals Not Reportable 08/19/19 08:17 Schistocytes Not Reportable 08/19/19 08:17 Malaria parasites Not Reportable 08/19/19 08:17 Jeevan Bodies Not Reportable 08/19/19 08:17 Hem Pathologist Commnt No 08/19/19 08:17 PT 16.0 Sec. (12.2-14.9) H 07/03/19 22:20 INR 1.26 (0.87-1.13) H 07/03/19 22:20 D-Dimer 1808.06 ng/mlDDU (0-234) H 08/07/19 10:24 ABG pH 7.405 pH Units (7.350-7.450) 08/17/19 20:20 ABG pCO2 45.3 mm Hg 08/17/19 20:20 ABG pO2 84.2 mm Hg (80.0-90.0) 08/17/19 20:20 ABG HCO3 27.8 mmol/L (20.0-26.0) H 08/17/19 20:20 ABG O2 Saturation 96.9 % (95.0-99.0) 08/17/19 20:20 ABG O2 Content 15.2 (0.0-44) 08/17/19 20:20 ABG Base Excess 2.6 mmol/L (-2.0-3.0) 08/17/19 20:20 ABG Hemoglobin 11.4 gm/dl (14.0-18.0) L 08/17/19 20:20 ABG Carboxyhemoglobin 1.9 % (0.0-5.0) 08/17/19 20:20 ABG Methemoglobin 0.5 % (0.0-1.5) 08/17/19 20:20 Oxyhemoglobin 94.6 % (95.0-99.0) L 08/17/19 20:20 FiO2 28 % 08/17/19 20:20 Sodium 134 mmol/L (137-145) L 08/20/19 Unknown Potassium 4.1 mmol/L (3.6-5.0) 08/20/19 Unknown Chloride 97.9 mmol/L (98-107) L 08/20/19 Unknown Carbon Dioxide 27 mmol/L (22-30) 08/20/19 Unknown Anion Gap 13 mmol/L 08/20/19 Unknown BUN 12 mg/dL (9-20) 08/20/19 Unknown Creatinine 0.3 mg/dL (0.8-1.5) L 08/20/19 Unknown Estimated GFR > 60 ml/min 08/20/19 Unknown BUN/Creatinine Ratio 40 % 08/20/19 Unknown Glucose 115 mg/dL (75-100) H 08/20/19 Unknown POC Glucose 128 (70-105) H 08/24/19 05:34 Osmolality 268 Mosm/kg 07/05/19 04:00 Lactic Acid 1.70 mmol/L (0.7-2.0) 08/18/19 13:00 Uric Acid 7.2 mg/dL (3.5-7.6) 07/05/19 04:00 Calcium 8.2 mg/dL (8.4-10.2) L 08/20/19 Unknown Phosphorus 3.60 mg/dL (2.5-4.5) 07/05/19 04:00 Magnesium 1.50 mg/dL (1.7-2.3) L 08/15/19 06:10 Iron 9 ug/dL (49-181) L 07/04/19 07:05 TIBC 97 mcg/dL (250-450) L 07/04/19 07:05 Ferritin 360.4 ng/mL (13.0-400.0) 08/07/19 10:24 Total Bilirubin 0.20 mg/dL (0.1-1.2) 08/16/19 05:00 AST 20 units/L (5-40) 08/16/19 05:00 ALT 8 units/L (7-56) 08/16/19 05:00 Alkaline Phosphatase 77 units/L (35-129) 08/16/19 05:00 Ammonia 35.0 umol/L (25-60) 07/03/19 23:58 Lactate Dehydrogenase 144 units/L (91-180) 08/07/19 10:24 Troponin T 0.013 ng/mL (0.00-0.029) 07/04/19 07:05 C-Reactive Protein 2.70 mg/dL (0.00-1.30) H 08/16/19 05:00 Total Protein 7.0 g/dL (6.3-8.2) 08/16/19 05:00 Albumin 2.1 g/dL (3.9-5) L 08/16/19 05:00 Albumin/Globulin Ratio 0.4 % 08/16/19 05:00 Prealbumin 0.037 g/L (0.200-0.400) L 07/31/19 04:42 Triglycerides 33 mg/dL (2-149) 07/03/19 19:57 Cholesterol 47 mg/dL (50-199) L 07/03/19 19:57 LDL Cholesterol Direct 25 mg/dL (50-130) L 07/03/19 19:57 HDL Cholesterol 20 mg/dL (40-59) L 07/03/19 19:57 Cholesterol/HDL Ratio 2.35 % 07/03/19 19:57 Procalcitonin < 0.05 ng/mL (<0.15) 08/16/19 14:35 TSH 2.170 mlU/mL (0.270-4.200) 07/03/19 22:20 Total Cortisol 28.0 mcg/dL () 07/05/19 10:11 Urine Color Yellow (Yellow) 07/29/19 11:57 Urine Turbidity Clear (Clear) 07/29/19 11:57 Urine pH 7.0 (5.0-7.0) 07/29/19 11:57 Ur Specific [place] 1.012 (1.003-1.030) 07/29/19 11:57 Urine Protein <15 mg/dl mg/dL (Negative) 07/29/19 11:57 Urine Glucose (UA) Neg mg/dL (Negative) 07/29/19 11:57 Urine Ketones Neg mg/dL (Negative) 07/29/19 11:57 Urine Blood Sm (Negative) 07/29/19 11:57 Urine Nitrite Neg (Negative) 07/29/19 11:57 Urine Bilirubin Neg (Negative) 07/29/19 11:57 Urine Urobilinogen 4.0 mg/dL (<2.0) 07/29/19 11:57 Ur Leukocyte Esterase Mod (Negative) 07/29/19 11:57 Urine WBC (Auto) 63.0 /HPF (0.0-6.0) H 07/29/19 11:57 Urine RBC (Auto) 14.0 /HPF (0.0-6.0) 07/29/19 11:57 U Epithel Cells (Auto) < 1.0 /HPF (0-13.0) 07/29/19 11:57 Urine Bacteria (Auto) 1+ /HPF (Negative) 07/29/19 11:57 Urine WBC Clumps Few /HPF 07/03/19 21:13 Urine Mucus Few /HPF 07/03/19 21:13 Urine Osmolality 293 Mosm/kg 07/05/19 08:15 Vancomycin Trough 23.2 ug/mL (5.0-20.0) H 07/05/19 17:54 Urine Opiates Screen Presumptive negative 07/03/19 21:13 Urine Methadone Screen Presumptive negative 07/03/19 21:13 Ur Barbiturates Screen Presumptive negative 07/03/19 21:13 Ur Phencyclidine Scrn Presumptive negative 07/03/19 21:13 Ur Amphetamines Screen Presumptive negative 07/03/19 21:13 U Benzodiazepines Scrn Presumptive negative 07/03/19 21:13 Urine Cocaine Screen Presumptive negative 07/03/19 21:13 U Marijuana (THC) Screen Presumptive negative 07/03/19 21:13 Drugs of Abuse Note Disclamer 07/03/19 21:13 Plasma/Serum Alcohol < 0.01 % (0-0.07) 07/03/19 23:58 Coronavirus (PCR) Negative (Negative) 08/20/19 12:23 Hepatitis A IgM Ab Non-reactive (NonReactive) 08/07/19 10:24 Hep Bs Antigen Non-reactive (Negative) 08/07/19 10:24 Hep B Core IgM Ab Non-reactive (NonReactive) 08/07/19 10:24 Hepatitis C Antibody Non-reactive (NonReactive) 08/07/19 10:24 Blood Type B POSITIVE 08/09/19 17:59 Antibody Screen Negative 08/09/19 17:59 Crossmatch See Detail 08/09/19 17:59 Wright/IV: Voiding Method Indwelling Catheter IV Catheter Type [Left Triple Lumen Cath Internal Jugular] IV Catheter Type [Left INT / Saline Lock Antecubital] IV Catheter Type [Left Forearm Peripheral IV ] IV Catheter Type [Left Upper Mid-line arm] IV Catheter Type [Right INT / Saline Lock Forearm] IV Catheter Type [Right Hand] INT / Saline Lock IV Catheter Type [Right CVL Femoral] IV Catheter Type [Left INT / Saline Lock External Jugular] Active Medications - Current Medications Current Medications: Generic Name Dose Route Start Last Admin Trade Name Freq PRN Reason Stop Dose Admin Acetaminophen 650 mg 07/04/19 04:24 08/05/19 17:40 Tylenol AK 650 mg Q6H PRN Administration Pain MILD(1-3)/Fever >100.5/MURO Acetaminophen 650 mg 07/10/19 04:00 08/23/19 00:30 Tylenol PO 650 mg Q6HR PRN Administration Pain, Mild (1-3) FEVER Lipase/Protease/Amylase 1 each 07/04/19 10:04 08/11/19 06:03 Pancreaze 10,500 Unit FEEDTUBE 1 each PRN PRN Administration For Clogged Feeding Tube Aspirin 81 mg 07/05/19 10:00 08/23/19 09:06 Baby Aspirin PO 81 mg QDAY TAMMIE Administration Dextrose 50 ml 07/04/19 06:54 D50w (25gm) Syringe IV Q30MIN PRN Hypoglycemia Protocol Docusate Sodium 100 mg 08/14/19 14:00 Colace PO BID PRN CONSTIPATION Enoxaparin Sodium 40 mg 07/24/19 10:00 08/23/19 09:06 Enoxaparin SUB-Q 40 mg QDAY@1000 TAMMIE Administration Famotidine 20 mg 07/23/19 22:00 08/23/19 21:49 Pepcid PO 20 mg BID TAMMIE Administration Fentanyl 50 mcg 07/21/19 15:18 08/19/19 14:50 Sublimaze IV 50 mcg Q10MIN PRN Administration ANALGESIA Fentanyl 25 mcg 08/03/19 11:00 08/21/19 10:22 Duragesic TD 25 mcg Q3D TAMMIE Administration Folic Acid 1 mg 07/05/19 10:00 08/23/19 09:05 Folvite PO 1 mg QDAY TAMMIE Administration Glycopyrrolate 1 mg 08/16/19 14:00 08/23/19 20:55 Robinul PO 1 mg TID TAMMIE Administration Hydrophilic Ointment 1 applic 07/03/19 19:56 07/05/19 17:42 Vaseline Lip Therapy TP 1 applic Q2HR PRN Administration Dry Lips Norepinephrine 4 mg in 250 mls @ 7.5 mls/hr 07/03/19 23:00 07/20/19 01:00 Levophed Drip 4 Mg/Ns 250 Ml IV Infused TITR TAMMIE Titration Protocol 2 MCG/MIN Levofloxacin/Dextrose 750 mg in 150 mls @ 100 mls/hr 08/19/19 12:00 08/23/19 09:05 Levaquin 750mg/150ml IV 100 mls/hr Q24HR TAMMIE Administration Protocol Insulin Human Lispro 0 unit 07/07/19 12:00 08/24/19 05:22 Humalog SUB-Q Not Given Q6HR TAMMIE Protocol Levetiracetam 750 mg 07/06/19 11:00 08/23/19 21:48 Keppra FEEDTUBE 750 mg Q12HR TAMMIE Administration Metoprolol Tartrate 5 mg 07/12/19 15:08 08/19/19 15:45 Metoprolol IV 5 mg Q6HR PRN Administration Tachyarrhythmias Multi-Ingred Cream/Lotion/Oil/Oint 1 applic 07/03/19 19:56 07/05/19 13:19 Artificial Tears Ophth Oint OU 1 applic Q4HR PRN Administration Dry Eye(s) Naloxone HCl 0.1 mg 07/04/19 04:24 Naloxone IV Q2MIN PRN Res Rate </= 8 or 02 SAT < 92% Oxycodone/Acetaminophen 1 tab 07/19/19 14:17 08/23/19 14:20 Percocet 5/325 PO 1 tab Q4H PRN Administration Pain, Moderate (4-6) Scopolamine 1 each 07/10/19 11:00 08/21/19 10:22 Transderm-Scop TD 1 each Q3D TAMMEI Administration Simple Syrup 15 ml 07/04/19 10:04 07/10/19 21:56 Simple Syrup FEEDTUBE 15 ml PRN PRN Administration Hypoglycemia Simple Syrup 30 ml 07/04/19 10:04 Simple Syrup FEEDTUBE PRN PRN Hypoglycemia Sodium Bicarbonate 325 mg 07/04/19 10:04 07/20/19 10:20 Sodium Bicarbonate FEEDTUBE 325 mg PRN PRN Administration For Clogged Feeding Tube Sodium Chloride 10 ml 07/04/19 10:00 08/23/19 21:51 Sodium Chloride Flush Syringe 10 Ml IV 10 ml BID TAMMIE Administration Sodium Chloride 10 ml 07/04/19 04:24 Sodium Chloride Flush Syringe 10 Ml IV PRN PRN LINE FLUSH Sodium Hypochlorite 1 applic 07/10/19 14:00 08/23/19 21:50 Dakin's Half Strength TP 1 appful BID TAMMIE Administration Nutrition/Malnutrition Assess - Dietary Evaluation Nutrition/Malnutrition Findings: Nutrition Notes Start: 07/04/19 09:17 Freq: Status: Active Protocol: Document 08/21/19 10:32 LP (Rec: 08/21/19 10:34 LP [email or web address]) Nutrition Notes Initial or Follow up Reassessment Current Diagnosis Acute Kidney Injury,COPD, Decubitus(Pressure Ulcer), Diabetes,Hypertension Other Pertinent Diagnosis COVID-19 (+), pneu, seizures, schizophrenia, Buttock and R foot PU, Current Diet Osmolite 1.5 at 55ml/hr Labs/Tests Reviewed Pertinent Medications Reviewed Height 5 ft 11 in Weight 75.3 kg [place] Body Weight (kg) 78.18 BMI 23.1 Weight Status Appropriate Subjective/Other Information Pt continues tolerating TF at goal rate.. Percent of energy/protein needs met: 97%/75% Burn Absent Trauma Absent Current % PO Negligible Minimum of two criteria No physical signs of malnutrition #2 Nutrition Diagnosis Increased nutrient needs ( specify in comment below) Diagnosis Progress(for reassessment Continues documentation) #1 Nutrition Diagnosis Inadequate oral intake Diagnosis Progress(for reassessment Continues documentation) Is patient on ventilator? Yes Is Patient Ambulatory and/or Out of Bed No REE-([facility]-confined to bed) [phone] Calculation Used for Recommendations [facility] Additional Notes Protein: 110-184 (1.2-2g/kg) Fluid: 1 ml/kcal or per MD Nutrition Intervention Change Diet Order: Continue TF Nutrition Support: Osmolite 1.5 at 55ml/hr Flush 150ml q4h Kcal 1,980 Protein (gm) 83 Fluid (mL) 1,006 Add Supplement/Snack (indicate name/kcal Scott BID /protein ) Provides kCal: 190 Provides Protein (gm) 5 Goal #1 TF tolerance Goal #2 TF to meet at least 75% of energy and protein needs Anticipated Discharge Needs: unable to determine at this time Follow-Up By: 08/28/19 Additional Comments Follow for stable TF
[2019-08-24] MEDS: METOPROLOL TARTRATE 25 MG TAB PO SCH ×3 (12:36→21:52)
--- NOTE | 2019-08-24 12:55 | Progress Note ---
Assessment and Plan Cultures: 07/03/2019 urine culture: No growth 07/03/2019 Tracheal aspirate: E.coli 07/29/2019 urine culture: neg 07/30/2019 blood culture: no growth tracheal asp + Pseudomonas 08/06/2019 blood culture: no growth 08/09/2019 Wound MDR Enterobacter 08/16/2019 blood culture: no growth to date 08/20/2019 COVID-19 PCR: negative A/P: 69-year-old male with CVA, hypertension, dementia, schizophrenia, alcohol use disorder was admitted to the emergency room after being brought in by EMS with progressive shortness of breath and unresponsiveness. He was noted to have agonal breathing and a faint pulse requiring CPR. It seems patient was on hospice recently, prior to admission. #Shock, likely septic: shock resolved, remains off pressors. still intermittent fever, leukocytosis worse again: bacterial pneumonia vs sacral decubitus infection. #Non-resolving pneumonia/Cavitary pneumonia: ? abscess. Sputum +Pseudomonas. CT shows RUL pneumonia with 2.4 cm cavity and LLL pneumonia with moderate left pleural effusion. No need for thoracentesis per Pulm. #Penile/scrotal and buttocks wounds: ?cellulitis #Sacral decubitus: worsening on last exam ? necrotic. Evaluated for surgery, no indications for intervention. 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 bleeding overnight s/p surgical management bedside, 08/09/2019 Wound MDR Enterobacter likely a colonizer (superficial wound cx) #UTI: per documentation initial carroll placed on 07/03, exchanged on 07/31. #Severe COVID-19 disease and pneumonia: Markers improving. Completed Plaquenil. Completed Ceftriaxone for treatment E.coli in tracheal aspirate. Repeat COVID finally negative on 08/20/2019. #Acute respiratory failure: remains on mechanical ventilation. #Multiple skin tears documented on admission #Anemia: from sacral wound bleeding Recs: Continue IV Levofloxacin Day 6 of 10 Continues to have intermittent fevers, several possible causes. WBC though is trending down. Overall prognosis is extremely poor. Awaiting trach/PEG Continue wound care Yanna Calzada MD, FACP [facility] C: [phone] O: [phone] F: [phone] Subjective Date of service: 08/24/19 Principal diagnosis: Bilateral pneumonia, severe sepsis with septic shock, encephalopathy Interval history: No fever. Remains on the vent, in ICU. Awaiting trach and PEG. Objective - Exam Narrative Exam: Physical Exam (reviewed in chart due to PPE conservation) Constitutional: intubated, sedated, on the vent Head, Ears, Nose: normocephalic, atraumatic Eyes: limited due to PPE conservation strategy Neck: intubated Oral: intubated Cardiovascular: limited due to PPE conservation strategy Respiratory: limited due to PPE conservation strategy GI: limited due to PPE conservation strategy Musculoskeletal: limited due to PPE conservation strategy Skin: limited due to PPE conservation strategy. Decubitus + Hem/Lymphatic: limited due to PPE conservation strategy Psych: no agitation Neurological: sedated, intubated, on the vent, exam limited - Constitutional Vitals: Vital Signs Temp Pulse Resp BP Pulse Ox 98.4 F 130 H 20 119/65 98 08/24/19 12:00 08/24/19 12:36 08/24/19 12:00 08/24/19 12:36 08/24/19 12:00 Temperature -Last 24 Hours Temperature 98.4 F Temperature 98.8 F Temperature 99.2 F Temperature 98.8 F Temperature 99 F Temperature 99.0 F - Labs CBC & Chem 7: 08/23/19 06:00 08/20/19 Unknown Labs: Abnormal lab results 08/23/19 08/24/19 08/24/19 Range/Units 17:46 00:04 05:34 POC Glucose 125 H 113 H 128 H (70-105) 08/24/19 Range/Units 12:28 POC Glucose 127 H (70-105)
--- NOTE | 2019-08-24 13:12 | Progress Note ---
Assessment and Plan Acute hypoxemic respiratory failure on MVS Severe sepsis with Shock. Bilateral Pneumonia. PUI coronavirus-19 infection. Acute possibly on chronic encephalopathy. Oropharyngeal dysphagia. Anemia. Decubitus ulcers Diabetes type 2. Hypertension. Leukocytosis. Anemia that is microcytic. Elevated serum transaminases. [id number] metabolic acidosis. Lactic acidosis. Severe protein-calorie malnutrition ( has advised us she wants a tracheostomy and continued aggressive care) - repeat COVID-19 negative - await tracheostomy placement - meantime will continue daily SBT's; if he shows significant tolerance of SBT's over an extended few day periods a trial of extubation may still be considered especially now he is COVID negative - no new issues otherwise, continue care as below otherwise - prn CXR's and ABG's at this point - surgery evaluation ongoing for tracheostomy placement (await negative COVID test) - continue care as below otherwise - continue fentanyl gtt for pain control / sedation - continue to wean supplemental oxygen for target O2 sat's > 90% acutely - continue daily SAT's and SBT assessment as tolerated - VAP bundle addressed - continue lung protective strategies - continue bronchodilators with pulmonary hygiene per RT - wean per pulmonary driven protocols otherwise - prn Levophed for target MAP > 65 mmHg - continue airborne and contact COVID-19 precautions - COVID-19 test positive - complete anti-infectives and de-escalate per ID recommendations - continue wound care per WCT - sedation prn for target RASS 0 to -1 - accuchecks with glycemic control per SSI (While critically ill target blood glucose of 140-180 mg/dL; avoid hypoglycemia) - to avoid benzodiazepine's, reduce the possibility of delirium - prn analgesia per CPOT score - Maintenance of sleep-wake cycle, avoid delirium - continue enteral nutritional support at goal rate as tolerated - G.I. & VTE prophylaxis - PT/OT/ROM exercises - continue mobility protocols for pressure ulcer prophylaxis - Monitor hemodynamics closely - continue other care per attending / other consultants - discharge planning ongoing concurrently .... Re-evaluate in am & prn CONDITION: CRITICAL PROGNOSIS: GUARDED CODE STATUS: FULL CODE The high probability of a clinically significant, sudden or life-threatening de terioration of the [respiratory & cardiovascular] system(s) required my full and direct attention, intervention and personal management. The aggregate critical care time was [33] minutes without overlap. Time includes spent on; [x] Data Review and interpretation [x] Patient assessment and monitoring of vital signs [x] Documentation [x] Medication orders and management Subjective Date of service: 08/24/19 Principal diagnosis: Bilateral pneumonia, severe sepsis with septic shock, encephalopathy Interval history: Patient is seen today for: Ac hypoxemic Resp failure on MVS; Severe sepsis with Shock; Ivan. Pneumonia; PUI coronavirus-19 infection. Seen and examined at bedside; 24hour events reviewed; nursing and respiratory care staff consulted; no adverse overnight events reported to me; resting in bed; remains on MVS; awaiting tyracheostomy placement; tolerating daytime SBT's however with some bad days; AMS is persistent Objective Vital Signs - 12hr 08/24/19 08/24/19 08/24/19 02:00 03:00 03:56 Temperature Pulse Rate 107 H 105 H 111 H Pulse Rate [ From Monitor] Pulse Rate [ Left Dorsalis Pedis] Pulse Rate [ Left Radial] Pulse Rate [ Right Dorsalis Pedis] Pulse Rate [ Right Radial] Respiratory 14 17 Rate Blood Pressure 115/71 114/51 O2 Sat by Pulse 100 97 100 Oximetry 08/24/19 08/24/19 08/24/19 04:00 05:00 06:00 Temperature 99.2 F Pulse Rate 108 H 107 H 111 H Pulse Rate [ 108 H From Monitor] Pulse Rate [ Left Dorsalis Pedis] Pulse Rate [ Left Radial] Pulse Rate [ Right Dorsalis Pedis] Pulse Rate [ Right Radial] Respiratory 20 20 20 Rate Blood Pressure 106/54 131/78 137/88 O2 Sat by Pulse 98 99 100 Oximetry 08/24/19 08/24/19 08/24/19 07:00 08:00 09:00 Temperature 98.8 F Pulse Rate 112 H 124 H 118 H Pulse Rate [ 118 H From Monitor] Pulse Rate [ 118 H Left Dorsalis Pedis] Pulse Rate [ 118 H Left Radial] Pulse Rate [ 118 H Right Dorsalis Pedis] Pulse Rate [ 118 H Right Radial] Respiratory 14 19 17 Rate Blood Pressure 120/69 135/77 110/68 O2 Sat by Pulse 100 100 100 Oximetry 08/24/19 08/24/19 08/24/19 09:55 10:00 11:00 Temperature Pulse Rate 128 H 128 H 131 H Pulse Rate [ From Monitor] Pulse Rate [ Left Dorsalis Pedis] Pulse Rate [ Left Radial] Pulse Rate [ Right Dorsalis Pedis] Pulse Rate [ Right Radial] Respiratory 29 H 16 17 Rate Blood Pressure 118/65 124/74 135/84 O2 Sat by Pulse 99 99 99 Oximetry 08/24/19 08/24/19 08/24/19 11:29 12:00 12:36 Temperature 98.4 F Pulse Rate 128 H 116 H 130 H Pulse Rate [ 130 H From Monitor] Pulse Rate [ 130 H Left Dorsalis Pedis] Pulse Rate [ 130 H Left Radial] Pulse Rate [ 130 H Right Dorsalis Pedis] Pulse Rate [ 130 H Right Radial] Respiratory 28 H 32 H Rate Blood Pressure 124/70 117/66 119/65 O2 Sat by Pulse 99 99 Oximetry 08/24/19 13:00 Temperature Pulse Rate 114 H Pulse Rate [ From Monitor] Pulse Rate [ Left Dorsalis Pedis] Pulse Rate [ Left Radial] Pulse Rate [ Right Dorsalis Pedis] Pulse Rate [ Right Radial] Respiratory 16 Rate Blood Pressure 130/78 O2 Sat by Pulse 99 Oximetry Constitutional: appears uncomfortable, other (eelderly and chronically ill looking AAM, normocep[krystina;ic with mildly increased respiratory effort at rest) Eyes: non-icteric ENT: oropharynx moist, other (ETT 24 cm RUTH) Neck: supple, no lymphadenopathy, no JVD Effort: mildly labored Ascultation: Bilateral: diminished breath sounds, rhonchi Percussion: Bilateral: not dull Cardiovascular: regular rate and rhythm Gastrointestinal: normoactive bowel sounds, soft, non-tender, non-distended, other (+ PEG tube with mild TF leakage) Integumentary: decubitus ulcer (sacral) Extremities: no cyanosis, no edema, pink and warm, pulses normal Neurologic: pupils equal and round, unable to assess Psychiatric: other (Unable to assess re: AMS) CBC and BMP: 08/27/19 07:21 08/27/19 07:21 ABG, PT/INR, D-dimer: ABG ABG pH 7.405 pH Units (7.350-7.450) 08/17/19 20:20 ABG pCO2 45.3 mm Hg 08/17/19 20:20 ABG pO2 84.2 mm Hg (80.0-90.0) 08/17/19 20:20 ABG O2 Saturation 96.9 % (95.0-99.0) 08/17/19 20:20 PT/INR, D-dimer PT 16.0 Sec. (12.2-14.9) H 07/03/19 22:20 INR 1.26 (0.87-1.13) H 07/03/19 22:20 D-Dimer 1808.06 ng/mlDDU (0-234) H 08/07/19 10:24 Abnormal lab findings: Abnormal Labs 07/03/19 07/03/19 07/03/19 19:57 21:10 21:13 WBC RBC Hgb Hct MCV MCH MCHC RDW Plt Count Lymph % (Auto) [place] % (Auto) Lymph # [place] # Baso # Seg Neutrophils % Seg Neuts % (Manual) Lymphocytes % (Manual) Monocytes % (Manual) Basophils % (Manual) Nucleated RBC % Seg Neutrophils # Seg Neutrophils # Man Lymphocytes # (Manual) Monocytes # (Manual) Eosinophils # (Manual) Basophils # (Manual) PT INR D-Dimer ABG pH 7.238 L ABG pO2 210.8 H ABG HCO3 15.4 L ABG O2 Saturation 99.2 H ABG Base Excess -11.1 L ABG Hemoglobin 8.0 L Oxyhemoglobin Sodium 124 L Potassium Chloride 92.9 L Carbon Dioxide 10 L BUN 23 H Creatinine 0.5 L Glucose 118 H POC Glucose Lactic Acid Calcium 7.0 L Magnesium Iron TIBC Ferritin AST 70 H ALT 88 H Lactate Dehydrogenase Troponin T 0.032 H C-Reactive Protein Total Protein 5.0 L Albumin 1.8 L Prealbumin Cholesterol 47 L LDL Cholesterol Direct 25 L HDL Cholesterol 20 L Urine WBC (Auto) 12.0 H Vancomycin Trough Coronavirus (PCR) Crossmatch 07/03/19 07/03/19 07/03/19 22:20 22:20 22:20 WBC 30.5 H RBC 2.96 L Hgb 7.7 L Hct 23.9 L MCV 81 L MCH 26 L MCHC RDW 18.6 H Plt Count 459 H Lymph % (Auto) [place] % (Auto) Lymph # [place] # Baso # Seg Neutrophils % Seg Neuts % (Manual) 93.0 H Lymphocytes % (Manual) 0.5 L Monocytes % (Manual) Basophils % (Manual) Nucleated RBC % Seg Neutrophils # Seg Neutrophils # Man 28.4 H Lymphocytes # (Manual) 0.2 L Monocytes # (Manual) Eosinophils # (Manual) Basophils # (Manual) PT 16.0 H INR 1.26 H D-Dimer ABG pH ABG pO2 ABG HCO3 ABG O2 Saturation ABG Base Excess ABG Hemoglobin Oxyhemoglobin Sodium Potassium Chloride Carbon Dioxide BUN Creatinine Glucose POC Glucose Lactic Acid 6.90 H* Calcium Magnesium Iron TIBC Ferritin AST ALT Lactate Dehydrogenase Troponin T C-Reactive Protein Total Protein Albumin Prealbumin Cholesterol LDL Cholesterol Direct HDL Cholesterol Urine WBC (Auto) Vancomycin Trough Coronavirus (PCR) Crossmatch 07/03/19 07/04/19 07/04/19 23:58 05:15 07:05 WBC 17.1 H RBC 3.22 L Hgb 8.3 L Hct 25.4 L MCV 79 L MCH 26 L MCHC RDW 18.6 H Plt Count Lymph % (Auto) [place] % (Auto) Lymph # [place] # Baso # Seg Neutrophils % Seg Neuts % (Manual) 74.0 H Lymphocytes % (Manual) 0 L Monocytes % (Manual) Basophils % (Manual) Nucleated RBC % Seg Neutrophils # Seg Neutrophils # Man 12.7 H Lymphocytes # (Manual) 0.0 L Monocytes # (Manual) Eosinophils # (Manual) Basophils # (Manual) PT INR D-Dimer ABG pH 7.310 L ABG pO2 73.2 L ABG HCO3 17.8 L ABG O2 Saturation 93.8 L ABG Base Excess -7.7 L ABG Hemoglobin 9.6 L Oxyhemoglobin 92.3 L Sodium Potassium Chloride Carbon Dioxide BUN Creatinine Glucose POC Glucose Lactic Acid 7.10 H* Calcium Magnesium Iron TIBC Ferritin AST ALT Lactate Dehydrogenase Troponin T C-Reactive Protein Total Protein Albumin Prealbumin Cholesterol LDL Cholesterol Direct HDL Cholesterol Urine WBC (Auto) Vancomycin Trough Coronavirus (PCR) Crossmatch 07/04/19 07/04/19 07/04/19 07:05 07:05 07:05 WBC RBC Hgb Hct MCV MCH MCHC RDW Plt Count Lymph % (Auto) [place] % (Auto) Lymph # [place] # Baso # Seg Neutrophils % Seg Neuts % (Manual) Lymphocytes % (Manual) Monocytes % (Manual) Basophils % (Manual) Nucleated RBC % Seg Neutrophils # Seg Neutrophils # Man Lymphocytes # (Manual) Monocytes # (Manual) Eosinophils # (Manual) Basophils # (Manual) PT INR D-Dimer ABG pH ABG pO2 ABG HCO3 ABG O2 Saturation ABG Base Excess ABG Hemoglobin Oxyhemoglobin Sodium 120 L Potassium 5.1 H Chloride 90.0 L Carbon Dioxide 14 L BUN 26 H Creatinine 0.5 L Glucose POC Glucose Lactic Acid 3.30 H* Calcium 8.0 L Magnesium Iron 9 L TIBC 97 L Ferritin AST 73 H ALT 91 H Lactate Dehydrogenase Troponin T C-Reactive Protein Total Protein 5.5 L Albumin 2.0 L Prealbumin Cholesterol LDL Cholesterol Direct HDL Cholesterol Urine WBC (Auto) Vancomycin Trough Coronavirus (PCR) Crossmatch 07/04/19 07/04/19 07/04/19 09:39 09:39 09:39 WBC RBC Hgb Hct MCV MCH MCHC RDW Plt Count Lymph % (Auto) [place] % (Auto) Lymph # [place] # Baso # Seg Neutrophils % Seg Neuts % (Manual) Lymphocytes % (Manual) Monocytes % (Manual) Basophils % (Manual) Nucleated RBC % Seg Neutrophils # Seg Neutrophils # Man Lymphocytes # (Manual) Monocytes # (Manual) Eosinophils # (Manual) Basophils # (Manual) PT INR D-Dimer 1419.14 H ABG pH ABG pO2 ABG HCO3 ABG O2 Saturation ABG Base Excess ABG Hemoglobin Oxyhemoglobin Sodium Potassium Chloride Carbon Dioxide BUN Creatinine Glucose POC Glucose Lactic Acid Calcium Magnesium Iron TIBC Ferritin 1719.0 H AST ALT Lactate Dehydrogenase 234 H Troponin T C-Reactive Protein 15.50 H Total Protein Albumin Prealbumin Cholesterol LDL Cholesterol Direct HDL Cholesterol Urine WBC (Auto) Vancomycin Trough Coronavirus (PCR) Crossmatch 07/04/19 07/04/19 07/04/19 10:09 18:08 18:28 WBC RBC Hgb Hct MCV MCH MCHC RDW Plt Count Lymph % (Auto) [place] % (Auto) Lymph # [place] # Baso # Seg Neutrophils % Seg Neuts % (Manual) Lymphocytes % (Manual) Monocytes % (Manual) Basophils % (Manual) Nucleated RBC % Seg Neutrophils # Seg Neutrophils # Man Lymphocytes # (Manual) Monocytes # (Manual) Eosinophils # (Manual) Basophils # (Manual) PT INR D-Dimer ABG pH ABG pO2 ABG HCO3 ABG O2 Saturation ABG Base Excess ABG Hemoglobin Oxyhemoglobin Sodium 117 L* Potassium 5.6 H Chloride 90.3 L Carbon Dioxide 16 L BUN 28 H Creatinine 0.5 L Glucose 58 L POC Glucose 65 L Lactic Acid Calcium 8.2 L Magnesium Iron TIBC Ferritin AST ALT Lactate Dehydrogenase Troponin T C-Reactive Protein Total Protein Albumin Prealbumin Cholesterol LDL Cholesterol Direct HDL Cholesterol Urine WBC (Auto) Vancomycin Trough Coronavirus (PCR) Positive A Crossmatch 07/04/19 07/04/19 07/04/19 23:45 Unknown Unknown WBC RBC Hgb Hct MCV MCH MCHC RDW Plt Count Lymph % (Auto) [place] % (Auto) Lymph # [place] # Baso # Seg Neutrophils % Seg Neuts % (Manual) Lymphocytes % (Manual) Monocytes % (Manual) Basophils % (Manual) Nucleated RBC % Seg Neutrophils # Seg Neutrophils # Man Lymphocytes # (Manual) Monocytes # (Manual) Eosinophils # (Manual) Basophils # (Manual) PT INR D-Dimer 759.77 H ABG pH ABG pO2 ABG HCO3 ABG O2 Saturation ABG Base Excess ABG Hemoglobin Oxyhemoglobin Sodium 122 L Potassium Chloride 93.0 L Carbon Dioxide 19 L BUN 27 H Creatinine 0.5 L Glucose POC Glucose Lactic Acid Calcium 8.3 L Magnesium Iron TIBC Ferritin 1301.0 H AST ALT Lactate Dehydrogenase Troponin T C-Reactive Protein Total Protein Albumin Prealbumin Cholesterol LDL Cholesterol Direct HDL Cholesterol Urine WBC (Auto) Vancomycin Trough Coronavirus (PCR) Crossmatch 07/04/19 07/05/19 07/05/19 Unknown 03:20 04:00 WBC RBC Hgb Hct MCV MCH MCHC RDW Plt Count Lymph % (Auto) [place] % (Auto) Lymph # [place] # Baso # Seg Neutrophils % Seg Neuts % (Manual) Lymphocytes % (Manual) Monocytes % (Manual) Basophils % (Manual) Nucleated RBC % Seg Neutrophils # Seg Neutrophils # Man Lymphocytes # (Manual) Monocytes # (Manual) Eosinophils # (Manual) Basophils # (Manual) PT INR D-Dimer ABG pH ABG pO2 60.6 L ABG HCO3 ABG O2 Saturation 93.5 L ABG Base Excess -2.4 L ABG Hemoglobin 6.9 L Oxyhemoglobin 92.0 L Sodium 125 L Potassium Chloride 92.6 L Carbon Dioxide 19 L BUN 24 H Creatinine 0.6 L Glucose POC Glucose Lactic Acid Calcium 8.2 L Magnesium 1.40 L Iron TIBC Ferritin AST ALT Lactate Dehydrogenase 242 H Troponin T C-Reactive Protein 16.70 H Total Protein Albumin Prealbumin Cholesterol LDL Cholesterol Direct HDL Cholesterol Urine WBC (Auto) Vancomycin Trough Coronavirus (PCR) Crossmatch 07/05/19 07/05/19 07/05/19 10:11 16:15 17:54 WBC 46.4 H* RBC 2.77 L Hgb 7.2 L Hct 21.9 L MCV 79 L MCH 26 L MCHC RDW 19.0 H Plt Count Lymph % (Auto) [place] % (Auto) Lymph # [place] # Baso # Seg Neutrophils % Seg Neuts % (Manual) 82.0 H Lymphocytes % (Manual) 1.0 L Monocytes % (Manual) Basophils % (Manual) Nucleated RBC % Seg Neutrophils # Seg Neutrophils # Man 38.0 H Lymphocytes # (Manual) 0.5 L Monocytes # (Manual) Eosinophils # (Manual) Basophils # (Manual) PT INR D-Dimer ABG pH ABG pO2 ABG HCO3 ABG O2 Saturation ABG Base Excess ABG Hemoglobin Oxyhemoglobin Sodium Potassium Chloride Carbon Dioxide BUN Creatinine Glucose POC Glucose 69 L Lactic Acid Calcium Magnesium Iron TIBC Ferritin AST ALT Lactate Dehydrogenase Troponin T C-Reactive Protein Total Protein Albumin Prealbumin Cholesterol LDL Cholesterol Direct HDL Cholesterol Urine WBC (Auto) Vancomycin Trough 23.2 H Coronavirus (PCR) Crossmatch 07/05/19 07/06/19 07/06/19 19:58 00:27 00:27 WBC RBC Hgb Hct MCV MCH MCHC RDW Plt Count Lymph % (Auto) [place] % (Auto) Lymph # [place] # Baso # Seg Neutrophils % Seg Neuts % (Manual) Lymphocytes % (Manual) Monocytes % (Manual) Basophils % (Manual) Nucleated RBC % Seg Neutrophils # Seg Neutrophils # Man Lymphocytes # (Manual) Monocytes # (Manual) Eosinophils # (Manual) Basophils # (Manual) PT INR D-Dimer 1333.22 H ABG pH ABG pO2 ABG HCO3 ABG O2 Saturation ABG Base Excess ABG Hemoglobin Oxyhemoglobin Sodium 127 L Potassium Chloride Carbon Dioxide BUN Creatinine Glucose POC Glucose Lactic Acid Calcium Magnesium Iron TIBC Ferritin 977.1 H AST ALT Lactate Dehydrogenase Troponin T C-Reactive Protein Total Protein Albumin Prealbumin Cholesterol LDL Cholesterol Direct HDL Cholesterol Urine WBC (Auto) Vancomycin Trough Coronavirus (PCR) Crossmatch 07/06/19 07/06/19 07/06/19 00:27 02:00 02:56 WBC RBC Hgb Hct MCV MCH MCHC RDW Plt Count Lymph % (Auto) [place] % (Auto) Lymph # [place] # Baso # Seg Neutrophils % Seg Neuts % (Manual) Lymphocytes % (Manual) Monocytes % (Manual) Basophils % (Manual) Nucleated RBC % Seg Neutrophils # Seg Neutrophils # Man Lymphocytes # (Manual) Monocytes # (Manual) Eosinophils # (Manual) Basophils # (Manual) PT INR D-Dimer ABG pH ABG pO2 70.3 L ABG HCO3 ABG O2 Saturation 94.8 L ABG Base Excess ABG Hemoglobin 8.0 L Oxyhemoglobin 93.2 L Sodium Potassium Chloride Carbon Dioxide BUN Creatinine Glucose POC Glucose 117 H Lactic Acid Calcium Magnesium Iron TIBC Ferritin AST ALT Lactate Dehydrogenase 236 H Troponin T C-Reactive Protein 22.90 H Total Protein Albumin Prealbumin Cholesterol LDL Cholesterol Direct HDL Cholesterol Urine WBC (Auto) Vancomycin Trough Coronavirus (PCR) Crossmatch 07/06/19 07/06/19 07/06/19 03:49 03:49 07:40 WBC 38.8 H RBC 2.51 L Hgb 6.7 L Hct 19.9 L* MCV 79 L MCH 27 L MCHC RDW 19.2 H Plt Count Lymph % (Auto) [place] % (Auto) Lymph # [place] # Baso # Seg Neutrophils % Seg Neuts % (Manual) 90.5 H Lymphocytes % (Manual) 1.0 L Monocytes % (Manual) Basophils % (Manual) Nucleated RBC % Seg Neutrophils # Seg Neutrophils # Man 35.1 H Lymphocytes # (Manual) 0.4 L Monocytes # (Manual) Eosinophils # (Manual) Basophils # (Manual) PT INR D-Dimer ABG pH ABG pO2 ABG HCO3 ABG O2 Saturation ABG Base Excess ABG Hemoglobin Oxyhemoglobin Sodium 131 L Potassium Chloride 96.9 L Carbon Dioxide 18 L BUN 23 H Creatinine 0.5 L Glucose POC Glucose Lactic Acid Calcium 8.0 L Magnesium Iron TIBC Ferritin AST ALT Lactate Dehydrogenase Troponin T C-Reactive Protein Total Protein Albumin Prealbumin Cholesterol LDL Cholesterol Direct HDL Cholesterol Urine WBC (Auto) Vancomycin Trough Coronavirus (PCR) Crossmatch See Detail 07/06/19 07/06/19 07/06/19 12:38 14:39 20:00 WBC RBC Hgb Hct MCV MCH MCHC RDW Plt Count Lymph % (Auto) [place] % (Auto) Lymph # [place] # Baso # Seg Neutrophils % Seg Neuts % (Manual) Lymphocytes % (Manual) Monocytes % (Manual) Basophils % (Manual) Nucleated RBC % Seg Neutrophils # Seg Neutrophils # Man Lymphocytes # (Manual) Monocytes # (Manual) Eosinophils # (Manual) Basophils # (Manual) PT INR D-Dimer ABG pH ABG pO2 ABG HCO3 ABG O2 Saturation ABG Base Excess ABG Hemoglobin Oxyhemoglobin Sodium Potassium Chloride Carbon Dioxide BUN Creatinine Glucose POC Glucose 112 H 111 H 140 H Lactic Acid Calcium Magnesium Iron TIBC Ferritin AST ALT Lactate Dehydrogenase Troponin T C-Reactive Protein Total Protein Albumin Prealbumin Cholesterol LDL Cholesterol Direct HDL Cholesterol Urine WBC (Auto) Vancomycin Trough Coronavirus (PCR) Crossmatch 07/06/19 07/06/19 07/07/19 22:43 22:56 02:20 WBC RBC Hgb 7.9 L Hct 23.1 L MCV MCH MCHC RDW Plt Count Lymph % (Auto) [place] % (Auto) Lymph # [place] # Baso # Seg Neutrophils % Seg Neuts % (Manual) Lymphocytes % (Manual) Monocytes % (Manual) Basophils % (Manual) Nucleated RBC % Seg Neutrophils # Seg Neutrophils # Man Lymphocytes # (Manual) Monocytes # (Manual) Eosinophils # (Manual) Basophils # (Manual) PT INR D-Dimer ABG pH ABG pO2 ABG HCO3 ABG O2 Saturation ABG Base Excess ABG Hemoglobin Oxyhemoglobin Sodium Potassium Chloride Carbon Dioxide BUN Creatinine Glucose POC Glucose 122 H 149 H Lactic Acid Calcium Magnesium Iron TIBC Ferritin AST ALT Lactate Dehydrogenase Troponin T C-Reactive Protein Total Protein Albumin Prealbumin Cholesterol LDL Cholesterol Direct HDL Cholesterol Urine WBC (Auto) Vancomycin Trough Coronavirus (PCR) Crossmatch 07/07/19 07/07/19 07/07/19 04:35 05:27 05:34 WBC 23.1 H RBC 3.00 L Hgb 8.1 L Hct 24.2 L MCV 81 L MCH 27 L MCHC RDW 20.6 H Plt Count Lymph % (Auto) [place] % (Auto) Lymph # [place] # Baso # Seg Neutrophils % Seg Neuts % (Manual) 90.0 H Lymphocytes % (Manual) 2.0 L Monocytes % (Manual) Basophils % (Manual) Nucleated RBC % Seg Neutrophils # Seg Neutrophils # Man 20.8 H Lymphocytes # (Manual) 0.5 L Monocytes # (Manual) Eosinophils # (Manual) Basophils # (Manual) PT INR D-Dimer ABG pH ABG pO2 65.8 L ABG HCO3 ABG O2 Saturation 92.2 L ABG Base Excess ABG Hemoglobin 8.3 L Oxyhemoglobin 90.6 L Sodium Potassium Chloride Carbon Dioxide BUN Creatinine Glucose POC Glucose 132 H Lactic Acid Calcium Magnesium Iron TIBC Ferritin AST ALT Lactate Dehydrogenase Troponin T C-Reactive Protein Total Protein Albumin Prealbumin Cholesterol LDL Cholesterol Direct HDL Cholesterol Urine WBC (Auto) Vancomycin Trough Coronavirus (PCR) Crossmatch 07/07/19 07/07/19 07/07/19 05:34 11:50 15:58 WBC RBC Hgb 8.1 L Hct 24.2 L MCV MCH MCHC RDW Plt Count Lymph % (Auto) [place] % (Auto) Lymph # [place] # Baso # Seg Neutrophils % Seg Neuts % (Manual) Lymphocytes % (Manual) Monocytes % (Manual) Basophils % (Manual) Nucleated RBC % Seg Neutrophils # Seg Neutrophils # Man Lymphocytes # (Manual) Monocytes # (Manual) Eosinophils # (Manual) Basophils # (Manual) PT INR D-Dimer ABG pH ABG pO2 ABG HCO3 ABG O2 Saturation ABG Base Excess ABG Hemoglobin Oxyhemoglobin Sodium 135 L Potassium 3.3 L Chloride Carbon Dioxide 20 L BUN 27 H Creatinine 0.6 L Glucose 121 H POC Glucose 123 H Lactic Acid Calcium 8.0 L Magnesium Iron TIBC Ferritin AST ALT Lactate Dehydrogenase Troponin T C-Reactive Protein Total Protein Albumin Prealbumin Cholesterol LDL Cholesterol Direct HDL Cholesterol Urine WBC (Auto) Vancomycin Trough Coronavirus (PCR) Crossmatch 07/07/19 07/07/19 07/07/19 17:42 22:00 23:53 WBC RBC Hgb 8.0 L Hct 23.4 L MCV MCH MCHC RDW Plt Count Lymph % (Auto) [place] % (Auto) Lymph # [place] # Baso # Seg Neutrophils % Seg Neuts % (Manual) Lymphocytes % (Manual) Monocytes % (Manual) Basophils % (Manual) Nucleated RBC % Seg Neutrophils # Seg Neutrophils # Man Lymphocytes # (Manual) Monocytes # (Manual) Eosinophils # (Manual) Basophils # (Manual) PT INR D-Dimer ABG pH ABG pO2 ABG HCO3 ABG O2 Saturation ABG Base Excess ABG Hemoglobin Oxyhemoglobin Sodium Potassium Chloride Carbon Dioxide BUN Creatinine Glucose POC Glucose 107 H 117 H Lactic Acid Calcium Magnesium Iron TIBC Ferritin AST ALT Lactate Dehydrogenase Troponin T C-Reactive Protein Total Protein Albumin Prealbumin Cholesterol LDL Cholesterol Direct HDL Cholesterol Urine WBC (Auto) Vancomycin Trough Coronavirus (PCR) Crossmatch 07/08/19 07/08/19 07/08/19 00:45 00:45 00:45 WBC RBC Hgb Hct MCV MCH MCHC RDW Plt Count Lymph % (Auto) [place] % (Auto) Lymph # [place] # Baso # Seg Neutrophils % Seg Neuts % (Manual) Lymphocytes % (Manual) Monocytes % (Manual) Basophils % (Manual) Nucleated RBC % Seg Neutrophils # Seg Neutrophils # Man Lymphocytes # (Manual) Monocytes # (Manual) Eosinophils # (Manual) Basophils # (Manual) PT INR D-Dimer 1142.18 H ABG pH ABG pO2 ABG HCO3 ABG O2 Saturation ABG Base Excess ABG Hemoglobin Oxyhemoglobin Sodium Potassium Chloride Carbon Dioxide BUN Creatinine Glucose POC Glucose Lactic Acid Calcium Magnesium Iron TIBC Ferritin 839.0 H AST ALT Lactate Dehydrogenase 253 H Troponin T C-Reactive Protein 18.90 H Total Protein Albumin Prealbumin Cholesterol LDL Cholesterol Direct HDL Cholesterol Urine WBC (Auto) Vancomycin Trough Coronavirus (PCR) Crossmatch 07/08/19 07/08/19 07/08/19 04:30 05:11 12:02 WBC RBC Hgb Hct MCV MCH MCHC RDW Plt Count Lymph % (Auto) [place] % (Auto) Lymph # [place] # Baso # Seg Neutrophils % Seg Neuts % (Manual) Lymphocytes % (Manual) Monocytes % (Manual) Basophils % (Manual) Nucleated RBC % Seg Neutrophils # Seg Neutrophils # Man Lymphocytes # (Manual) Monocytes # (Manual) Eosinophils # (Manual) Basophils # (Manual) PT INR D-Dimer ABG pH ABG pO2 66.0 L ABG HCO3 ABG O2 Saturation 92.3 L ABG Base Excess ABG Hemoglobin 7.7 L Oxyhemoglobin 90.7 L Sodium Potassium Chloride Carbon Dioxide BUN Creatinine Glucose POC Glucose 108 H 153 H Lactic Acid Calcium Magnesium Iron TIBC Ferritin AST ALT Lactate Dehydrogenase Troponin T C-Reactive Protein Total Protein Albumin Prealbumin Cholesterol LDL Cholesterol Direct HDL Cholesterol Urine WBC (Auto) Vancomycin Trough Coronavirus (PCR) Crossmatch 07/08/19 07/08/19 07/08/19 16:15 18:22 23:35 WBC RBC Hgb Hct MCV MCH MCHC RDW Plt Count Lymph % (Auto) [place] % (Auto) Lymph # [place] # Baso # Seg Neutrophils % Seg Neuts % (Manual) Lymphocytes % (Manual) Monocytes % (Manual) Basophils % (Manual) Nucleated RBC % Seg Neutrophils # Seg Neutrophils # Man Lymphocytes # (Manual) Monocytes # (Manual) Eosinophils # (Manual) Basophils # (Manual) PT INR D-Dimer ABG pH ABG pO2 ABG HCO3 ABG O2 Saturation ABG Base Excess ABG Hemoglobin Oxyhemoglobin Sodium 134 L Potassium 3.3 L Chloride Carbon Dioxide 21 L BUN 27 H Creatinine 0.6 L Glucose 146 H POC Glucose 134 H 133 H Lactic Acid Calcium Magnesium Iron TIBC Ferritin AST ALT Lactate Dehydrogenase Troponin T C-Reactive Protein Total Protein Albumin Prealbumin Cholesterol LDL Cholesterol Direct HDL Cholesterol Urine WBC (Auto) Vancomycin Trough Coronavirus (PCR) Crossmatch 07/09/19 07/09/19 07/09/19 04:30 04:30 05:00 WBC 18.9 H RBC 2.77 L Hgb 7.4 L Hct 22.8 L MCV 82 L MCH 27 L MCHC RDW 20.9 H Plt Count 130 L Lymph % (Auto) [place] % (Auto) Lymph # [place] # Baso # Seg Neutrophils % Seg Neuts % (Manual) 84.0 H Lymphocytes % (Manual) 0 L Monocytes % (Manual) Basophils % (Manual) Nucleated RBC % Seg Neutrophils # Seg Neutrophils # Man 15.9 H Lymphocytes # (Manual) 0.0 L Monocytes # (Manual) Eosinophils # (Manual) Basophils # (Manual) PT INR D-Dimer ABG pH ABG pO2 ABG HCO3 ABG O2 Saturation ABG Base Excess ABG Hemoglobin Oxyhemoglobin Sodium Potassium 3.1 L Chloride Carbon Dioxide BUN 26 H Creatinine 0.5 L Glucose 125 H POC Glucose 155 H Lactic Acid Calcium Magnesium Iron TIBC Ferritin AST ALT Lactate Dehydrogenase Troponin T C-Reactive Protein Total Protein Albumin Prealbumin Cholesterol LDL Cholesterol Direct HDL Cholesterol Urine WBC (Auto) Vancomycin Trough Coronavirus (PCR) Crossmatch 07/09/19 07/09/19 07/09/19 05:55 12:22 17:50 WBC RBC Hgb Hct MCV MCH MCHC RDW Plt Count Lymph % (Auto) [place] % (Auto) Lymph # [place] # Baso # Seg Neutrophils % Seg Neuts % (Manual) Lymphocytes % (Manual) Monocytes % (Manual) Basophils % (Manual) Nucleated RBC % Seg Neutrophils # Seg Neutrophils # Man Lymphocytes # (Manual) Monocytes # (Manual) Eosinophils # (Manual) Basophils # (Manual) PT INR D-Dimer ABG pH ABG pO2 62.8 L ABG HCO3 ABG O2 Saturation ABG Base Excess ABG Hemoglobin 6.1 L Oxyhemoglobin 93.9 L Sodium Potassium Chloride Carbon Dioxide BUN Creatinine Glucose POC Glucose 115 H 133 H Lactic Acid Calcium Magnesium Iron TIBC Ferritin AST ALT Lactate Dehydrogenase Troponin T C-Reactive Protein Total Protein Albumin Prealbumin Cholesterol LDL Cholesterol Direct HDL Cholesterol Urine WBC (Auto) Vancomycin Trough Coronavirus (PCR) Crossmatch 07/10/19 07/10/19 07/10/19 00:38 04:00 04:00 WBC RBC Hgb Hct MCV MCH MCHC RDW Plt Count Lymph % (Auto) [place] % (Auto) Lymph # [place] # Baso # Seg Neutrophils % Seg Neuts % (Manual) Lymphocytes % (Manual) Monocytes % (Manual) Basophils % (Manual) Nucleated RBC % Seg Neutrophils # Seg Neutrophils # Man Lymphocytes # (Manual) Monocytes # (Manual) Eosinophils # (Manual) Basophils # (Manual) PT INR D-Dimer ABG pH ABG pO2 ABG HCO3 ABG O2 Saturation ABG Base Excess ABG Hemoglobin Oxyhemoglobin Sodium Potassium Chloride 107.9 H Carbon Dioxide BUN 26 H Creatinine 0.4 L Glucose 137 H POC Glucose 122 H Lactic Acid Calcium Magnesium 1.50 L Iron TIBC Ferritin AST ALT Lactate Dehydrogenase 277 H Troponin T C-Reactive Protein 15.10 H Total Protein Albumin Prealbumin Cholesterol LDL Cholesterol Direct HDL Cholesterol Urine WBC (Auto) Vancomycin Trough Coronavirus (PCR) Crossmatch 07/10/19 07/10/19 07/10/19 04:07 05:21 17:25 WBC RBC Hgb Hct MCV MCH MCHC RDW Plt Count Lymph % (Auto) [place] % (Auto) Lymph # [place] # Baso # Seg Neutrophils % Seg Neuts % (Manual) Lymphocytes % (Manual) Monocytes % (Manual) Basophils % (Manual) Nucleated RBC % Seg Neutrophils # Seg Neutrophils # Man Lymphocytes # (Manual) Monocytes # (Manual) Eosinophils # (Manual) Basophils # (Manual) PT INR D-Dimer ABG pH ABG pO2 65.6 L ABG HCO3 26.3 H ABG O2 Saturation ABG Base Excess ABG Hemoglobin 6.7 L Oxyhemoglobin Sodium Potassium Chloride Carbon Dioxide BUN Creatinine Glucose POC Glucose 144 H 113 H Lactic Acid Calcium Magnesium Iron TIBC Ferritin AST ALT Lactate Dehydrogenase Troponin T C-Reactive Protein Total Protein Albumin Prealbumin Cholesterol LDL Cholesterol Direct HDL Cholesterol Urine WBC (Auto) Vancomycin Trough Coronavirus (PCR) Crossmatch 07/11/19 07/11/19 07/11/19 00:07 05:14 05:25 WBC RBC Hgb Hct MCV MCH MCHC RDW Plt Count Lymph % (Auto) [place] % (Auto) Lymph # [place] # Baso # Seg Neutrophils % Seg Neuts % (Manual) Lymphocytes % (Manual) Monocytes % (Manual) Basophils % (Manual) Nucleated RBC % Seg Neutrophils # Seg Neutrophils # Man Lymphocytes # (Manual) Monocytes # (Manual) Eosinophils # (Manual) Basophils # (Manual) PT INR D-Dimer ABG pH ABG pO2 ABG HCO3 ABG O2 Saturation ABG Base Excess ABG Hemoglobin 5.8 L Oxyhemoglobin Sodium Potassium Chloride 108.0 H Carbon Dioxide BUN 26 H Creatinine 0.4 L Glucose 110 H POC Glucose 121 H Lactic Acid Calcium Magnesium Iron TIBC Ferritin AST ALT Lactate Dehydrogenase Troponin T C-Reactive Protein Total Protein Albumin Prealbumin Cholesterol LDL Cholesterol Direct HDL Cholesterol Urine WBC (Auto) Vancomycin Trough Coronavirus (PCR) Crossmatch 07/11/19 07/11/19 07/11/19 12:27 18:00 23:42 WBC RBC Hgb Hct MCV MCH MCHC RDW Plt Count Lymph % (Auto) [place] % (Auto) Lymph # [place] # Baso # Seg Neutrophils % Seg Neuts % (Manual) Lymphocytes % (Manual) Monocytes % (Manual) Basophils % (Manual) Nucleated RBC % Seg Neutrophils # Seg Neutrophils # Man Lymphocytes # (Manual) Monocytes # (Manual) Eosinophils # (Manual) Basophils # (Manual) PT INR D-Dimer ABG pH ABG pO2 ABG HCO3 ABG O2 Saturation ABG Base Excess ABG Hemoglobin Oxyhemoglobin Sodium Potassium Chloride Carbon Dioxide BUN Creatinine Glucose POC Glucose 158 H 141 H 142 H Lactic Acid Calcium Magnesium Iron TIBC Ferritin AST ALT Lactate Dehydrogenase Troponin T C-Reactive Protein Total Protein Albumin Prealbumin Cholesterol LDL Cholesterol Direct HDL Cholesterol Urine WBC (Auto) Vancomycin Trough Coronavirus (PCR) Crossmatch 07/12/19 07/12/19 07/12/19 04:46 04:46 05:23 WBC 23.6 H RBC 2.51 L Hgb 6.7 L Hct 20.8 L MCV 83 L MCH 27 L MCHC RDW 20.3 H Plt Count Lymph % (Auto) [place] % (Auto) Lymph # [place] # Baso # Seg Neutrophils % Seg Neuts % (Manual) 94.0 H Lymphocytes % (Manual) 4.0 L Monocytes % (Manual) Basophils % (Manual) Nucleated RBC % Seg Neutrophils # Seg Neutrophils # Man 22.2 H Lymphocytes # (Manual) 0.9 L Monocytes # (Manual) Eosinophils # (Manual) Basophils # (Manual) PT INR D-Dimer ABG pH ABG pO2 ABG HCO3 ABG O2 Saturation ABG Base Excess ABG Hemoglobin Oxyhemoglobin Sodium Potassium Chloride 107.1 H Carbon Dioxide BUN 25 H Creatinine 0.4 L Glucose 122 H POC Glucose 118 H Lactic Acid Calcium Magnesium Iron TIBC Ferritin AST ALT Lactate Dehydrogenase Troponin T C-Reactive Protein Total Protein Albumin Prealbumin Cholesterol LDL Cholesterol Direct HDL Cholesterol Urine WBC (Auto) Vancomycin Trough Coronavirus (PCR) Crossmatch 07/12/19 07/12/19 07/12/19 08:49 11:36 18:15 WBC RBC Hgb Hct MCV MCH MCHC RDW Plt Count Lymph % (Auto) [place] % (Auto) Lymph # [place] # Baso # Seg Neutrophils % Seg Neuts % (Manual) Lymphocytes % (Manual) Monocytes % (Manual) Basophils % (Manual) Nucleated RBC % Seg Neutrophils # Seg Neutrophils # Man Lymphocytes # (Manual) Monocytes # (Manual) Eosinophils # (Manual) Basophils # (Manual) PT INR D-Dimer ABG pH ABG pO2 ABG HCO3 ABG O2 Saturation ABG Base Excess ABG Hemoglobin Oxyhemoglobin Sodium Potassium Chloride Carbon Dioxide BUN Creatinine Glucose POC Glucose 124 H 110 H Lactic Acid Calcium Magnesium Iron TIBC Ferritin AST ALT Lactate Dehydrogenase Troponin T C-Reactive Protein Total Protein Albumin Prealbumin Cholesterol LDL Cholesterol Direct HDL Cholesterol Urine WBC (Auto) Vancomycin Trough Coronavirus (PCR) Crossmatch See Detail 07/12/19 07/13/19 07/13/19 23:16 05:26 06:50 WBC 23.9 H RBC 2.58 L Hgb 6.9 L Hct 21.5 L MCV 83 L MCH 27 L MCHC RDW 19.0 H Plt Count Lymph % (Auto) [place] % (Auto) Lymph # [place] # Baso # Seg Neutrophils % Seg Neuts % (Manual) 96.0 H Lymphocytes % (Manual) 3.0 L Monocytes % (Manual) Basophils % (Manual) Nucleated RBC % Seg Neutrophils # Seg Neutrophils # Man 22.9 H Lymphocytes # (Manual) 0.7 L Monocytes # (Manual) Eosinophils # (Manual) Basophils # (Manual) PT INR D-Dimer ABG pH ABG pO2 ABG HCO3 ABG O2 Saturation ABG Base Excess ABG Hemoglobin Oxyhemoglobin Sodium Potassium Chloride Carbon Dioxide BUN Creatinine Glucose POC Glucose 108 H 126 H Lactic Acid Calcium Magnesium Iron TIBC Ferritin AST ALT Lactate Dehydrogenase Troponin T C-Reactive Protein Total Protein Albumin Prealbumin Cholesterol LDL Cholesterol Direct HDL Cholesterol Urine WBC (Auto) Vancomycin Trough Coronavirus (PCR) Crossmatch 07/13/19 07/13/19 07/13/19 06:50 12:38 18:05 WBC RBC Hgb Hct MCV MCH MCHC RDW Plt Count Lymph % (Auto) [place] % (Auto) Lymph # [place] # Baso # Seg Neutrophils % Seg Neuts % (Manual) Lymphocytes % (Manual) Monocytes % (Manual) Basophils % (Manual) Nucleated RBC % Seg Neutrophils # Seg Neutrophils # Man Lymphocytes # (Manual) Monocytes # (Manual) Eosinophils # (Manual) Basophils # (Manual) PT INR D-Dimer ABG pH ABG pO2 ABG HCO3 ABG O2 Saturation ABG Base Excess ABG Hemoglobin Oxyhemoglobin Sodium Potassium Chloride Carbon Dioxide BUN 33 H Creatinine 0.5 L Glucose 136 H POC Glucose 164 H 145 H Lactic Acid Calcium Magnesium Iron TIBC Ferritin AST ALT Lactate Dehydrogenase Troponin T C-Reactive Protein Total Protein Albumin Prealbumin Cholesterol LDL Cholesterol Direct HDL Cholesterol Urine WBC (Auto) Vancomycin Trough Coronavirus (PCR) Crossmatch 07/13/19 07/14/19 07/14/19 18:30 00:21 04:40 WBC 22.9 H RBC 2.45 L Hgb 6.6 L Hct 21.1 L MCV MCH 27 L MCHC 31 L RDW 19.2 H Plt Count Lymph % (Auto) [place] % (Auto) Lymph # [place] # Baso # Seg Neutrophils % Seg Neuts % (Manual) 91.0 H Lymphocytes % (Manual) 7.0 L Monocytes % (Manual) Basophils % (Manual) Nucleated RBC % Seg Neutrophils # Seg Neutrophils # Man 20.8 H Lymphocytes # (Manual) Monocytes # (Manual) Eosinophils # (Manual) Basophils # (Manual) PT INR D-Dimer ABG pH ABG pO2 58.1 L ABG HCO3 ABG O2 Saturation 88.7 L ABG Base Excess ABG Hemoglobin 7.8 L Oxyhemoglobin 86.8 L Sodium Potassium Chloride Carbon Dioxide BUN Creatinine Glucose POC Glucose 118 H Lactic Acid Calcium Magnesium Iron TIBC Ferritin AST ALT Lactate Dehydrogenase Troponin T C-Reactive Protein Total Protein Albumin Prealbumin Cholesterol LDL Cholesterol Direct HDL Cholesterol Urine WBC (Auto) Vancomycin Trough Coronavirus (PCR) Crossmatch 07/14/19 07/14/19 07/14/19 04:40 05:38 05:45 WBC RBC Hgb Hct MCV MCH MCHC RDW Plt Count Lymph % (Auto) [place] % (Auto) Lymph # [place] # Baso # Seg Neutrophils % Seg Neuts % (Manual) Lymphocytes % (Manual) Monocytes % (Manual) Basophils % (Manual) Nucleated RBC % Seg Neutrophils # Seg Neutrophils # Man Lymphocytes # (Manual) Monocytes # (Manual) Eosinophils # (Manual) Basophils # (Manual) PT INR D-Dimer ABG pH 7.230 L ABG pO2 72.1 L ABG HCO3 ABG O2 Saturation 89.3 L ABG Base Excess -2.7 L ABG Hemoglobin 6.7 L Oxyhemoglobin 87.7 L Sodium Potassium Chloride 107.4 H Carbon Dioxide BUN 45 H Creatinine Glucose 101 H POC Glucose 154 H Lactic Acid Calcium Magnesium Iron TIBC Ferritin AST ALT Lactate Dehydrogenase Troponin T C-Reactive Protein Total Protein Albumin Prealbumin Cholesterol LDL Cholesterol Direct HDL Cholesterol Urine WBC (Auto) Vancomycin Trough Coronavirus (PCR) Crossmatch 07/14/19 07/14/19 07/14/19 12:25 18:20 19:01 WBC 22.4 H RBC 2.70 L Hgb 7.5 L Hct 23.3 L MCV MCH MCHC RDW 19.5 H Plt Count Lymph % (Auto) [place] % (Auto) Lymph # [place] # Baso # Seg Neutrophils % Seg Neuts % (Manual) Lymphocytes % (Manual) Monocytes % (Manual) Basophils % (Manual) Nucleated RBC % Seg Neutrophils # Seg Neutrophils # Man Lymphocytes # (Manual) Monocytes # (Manual) Eosinophils # (Manual) Basophils # (Manual) PT INR D-Dimer ABG pH ABG pO2 ABG HCO3 ABG O2 Saturation ABG Base Excess ABG Hemoglobin Oxyhemoglobin Sodium Potassium Chloride Carbon Dioxide BUN Creatinine Glucose POC Glucose 136 H 131 H Lactic Acid Calcium Magnesium Iron TIBC Ferritin AST ALT Lactate Dehydrogenase Troponin T C-Reactive Protein Total Protein Albumin Prealbumin Cholesterol LDL Cholesterol Direct HDL Cholesterol Urine WBC (Auto) Vancomycin Trough Coronavirus (PCR) Crossmatch 07/15/19 07/15/19 07/15/19 00:17 04:35 05:18 WBC 20.6 H RBC 2.41 L Hgb 6.8 L Hct 20.7 L MCV MCH MCHC RDW 20.2 H Plt Count Lymph % (Auto) [place] % (Auto) Lymph # [place] # Baso # Seg Neutrophils % Seg Neuts % (Manual) 92.0 H Lymphocytes % (Manual) 5.0 L Monocytes % (Manual) Basophils % (Manual) Nucleated RBC % Seg Neutrophils # Seg Neutrophils # Man 19.0 H Lymphocytes # (Manual) 1.0 L Monocytes # (Manual) Eosinophils # (Manual) Basophils # (Manual) PT INR D-Dimer ABG pH 7.342 L ABG pO2 ABG HCO3 ABG O2 Saturation ABG Base Excess -3.1 L ABG Hemoglobin 7.2 L Oxyhemoglobin 94.9 L Sodium Potassium Chloride Carbon Dioxide BUN Creatinine Glucose POC Glucose 116 H Lactic Acid Calcium Magnesium Iron TIBC Ferritin AST ALT Lactate Dehydrogenase Troponin T C-Reactive Protein Total Protein Albumin Prealbumin Cholesterol LDL Cholesterol Direct HDL Cholesterol Urine WBC (Auto) Vancomycin Trough Coronavirus (PCR) Crossmatch 07/15/19 07/15/19 07/15/19 05:18 05:57 11:28 WBC RBC Hgb Hct MCV MCH MCHC RDW Plt Count Lymph % (Auto) [place] % (Auto) Lymph # [place] # Baso # Seg Neutrophils % Seg Neuts % (Manual) Lymphocytes % (Manual) Monocytes % (Manual) Basophils % (Manual) Nucleated RBC % Seg Neutrophils # Seg Neutrophils # Man Lymphocytes # (Manual) Monocytes # (Manual) Eosinophils # (Manual) Basophils # (Manual) PT INR D-Dimer ABG pH ABG pO2 ABG HCO3 ABG O2 Saturation ABG Base Excess ABG Hemoglobin Oxyhemoglobin Sodium Potassium Chloride Carbon Dioxide 20 L BUN 59 H Creatinine Glucose 140 H POC Glucose 139 H 117 H Lactic Acid Calcium Magnesium Iron TIBC Ferritin AST ALT Lactate Dehydrogenase Troponin T C-Reactive Protein Total Protein Albumin Prealbumin Cholesterol LDL Cholesterol Direct HDL Cholesterol Urine WBC (Auto) Vancomycin Trough Coronavirus (PCR) Crossmatch 07/15/19 07/16/19 07/16/19 18:13 00:06 03:43 WBC RBC Hgb Hct MCV MCH MCHC RDW Plt Count Lymph % (Auto) [place] % (Auto) Lymph # [place] # Baso # Seg Neutrophils % Seg Neuts % (Manual) Lymphocytes % (Manual) Monocytes % (Manual) Basophils % (Manual) Nucleated RBC % Seg Neutrophils # Seg Neutrophils # Man Lymphocytes # (Manual) Monocytes # (Manual) Eosinophils # (Manual) Basophils # (Manual) PT INR D-Dimer ABG pH 7.344 L ABG pO2 68.6 L ABG HCO3 ABG O2 Saturation ABG Base Excess -3.5 L ABG Hemoglobin 6.1 L Oxyhemoglobin 93.3 L Sodium Potassium Chloride Carbon Dioxide BUN Creatinine Glucose POC Glucose 114 H 119 H Lactic Acid Calcium Magnesium Iron TIBC Ferritin AST ALT Lactate Dehydrogenase Troponin T C-Reactive Protein Total Protein Albumin Prealbumin Cholesterol LDL Cholesterol Direct HDL Cholesterol Urine WBC (Auto) Vancomycin Trough Coronavirus (PCR) Crossmatch 07/16/19 07/16/19 07/16/19 04:41 04:41 12:09 WBC 19.6 H RBC 2.81 L Hgb 7.7 L Hct 24.0 L MCV MCH 27 L MCHC RDW 19.4 H Plt Count 514 H Lymph % (Auto) 6.7 L [place] % (Auto) Lymph # [place] # 1.0 H Baso # Seg Neutrophils % 87.0 H Seg Neuts % (Manual) Lymphocytes % (Manual) Monocytes % (Manual) Basophils % (Manual) Nucleated RBC % Seg Neutrophils # 17.0 H Seg Neutrophils # Man Lymphocytes # (Manual) Monocytes # (Manual) Eosinophils # (Manual) Basophils # (Manual) PT INR D-Dimer ABG pH ABG pO2 ABG HCO3 ABG O2 Saturation ABG Base Excess ABG Hemoglobin Oxyhemoglobin Sodium Potassium 5.9 H Chloride Carbon Dioxide 21 L BUN 73 H Creatinine 2.0 H Glucose POC Glucose 141 H Lactic Acid Calcium Magnesium Iron TIBC Ferritin AST ALT Lactate Dehydrogenase Troponin T C-Reactive Protein Total Protein Albumin Prealbumin Cholesterol LDL Cholesterol Direct HDL Cholesterol Urine WBC (Auto) Vancomycin Trough Coronavirus (PCR) Crossmatch 07/16/19 07/16/19 07/17/19 16:19 17:45 00:16 WBC RBC Hgb Hct MCV MCH MCHC RDW Plt Count Lymph % (Auto) [place] % (Auto) Lymph # [place] # Baso # Seg Neutrophils % Seg Neuts % (Manual) Lymphocytes % (Manual) Monocytes % (Manual) Basophils % (Manual) Nucleated RBC % Seg Neutrophils # Seg Neutrophils # Man Lymphocytes # (Manual) Monocytes # (Manual) Eosinophils # (Manual) Basophils # (Manual) PT INR D-Dimer ABG pH ABG pO2 ABG HCO3 ABG O2 Saturation ABG Base Excess ABG Hemoglobin Oxyhemoglobin Sodium Potassium 5.1 H Chloride Carbon Dioxide 20 L BUN 72 H Creatinine 1.7 H Glucose 128 H POC Glucose 181 H 164 H Lactic Acid Calcium Magnesium Iron TIBC Ferritin AST ALT Lactate Dehydrogenase Troponin T C-Reactive Protein Total Protein Albumin Prealbumin Cholesterol LDL Cholesterol Direct HDL Cholesterol Urine WBC (Auto) Vancomycin Trough Coronavirus (PCR) Crossmatch 07/17/19 07/17/19 07/17/19 04:20 04:39 04:39 WBC 16.1 H RBC 2.92 L Hgb 8.0 L Hct 25.5 L MCV MCH MCHC 31 L RDW 19.7 H Plt Count 564 H Lymph % (Auto) 3.6 L [place] % (Auto) 7.4 H Lymph # 0.6 L [place] # 1.2 H Baso # Seg Neutrophils % 87.5 H Seg Neuts % (Manual) Lymphocytes % (Manual) Monocytes % (Manual) Basophils % (Manual) Nucleated RBC % Seg Neutrophils # 14.1 H Seg Neutrophils # Man Lymphocytes # (Manual) Monocytes # (Manual) Eosinophils # (Manual) Basophils # (Manual) PT INR D-Dimer ABG pH 7.231 L ABG pO2 95.3 H ABG HCO3 ABG O2 Saturation ABG Base Excess -5.0 L ABG Hemoglobin 7.9 L Oxyhemoglobin 94.8 L Sodium Potassium Chloride 107.8 H Carbon Dioxide 21 L BUN 68 H Creatinine Glucose POC Glucose Lactic Acid Calcium Magnesium Iron TIBC Ferritin AST ALT Lactate Dehydrogenase Troponin T C-Reactive Protein Total Protein Albumin Prealbumin Cholesterol LDL Cholesterol Direct HDL Cholesterol Urine WBC (Auto) Vancomycin Trough Coronavirus (PCR) Crossmatch 07/17/19 07/17/19 07/17/19 05:28 12:11 18:48 WBC RBC Hgb Hct MCV MCH MCHC RDW Plt Count Lymph % (Auto) [place] % (Auto) Lymph # [place] # Baso # Seg Neutrophils % Seg Neuts % (Manual) Lymphocytes % (Manual) Monocytes % (Manual) Basophils % (Manual) Nucleated RBC % Seg Neutrophils # Seg Neutrophils # Man Lymphocytes # (Manual) Monocytes # (Manual) Eosinophils # (Manual) Basophils # (Manual) PT INR D-Dimer ABG pH ABG pO2 ABG HCO3 ABG O2 Saturation ABG Base Excess ABG Hemoglobin Oxyhemoglobin Sodium Potassium Chloride Carbon Dioxide BUN Creatinine Glucose POC Glucose 121 H 125 H 174 H Lactic Acid Calcium Magnesium Iron TIBC Ferritin AST ALT Lactate Dehydrogenase Troponin T C-Reactive Protein Total Protein Albumin Prealbumin Cholesterol LDL Cholesterol Direct HDL Cholesterol Urine WBC (Auto) Vancomycin Trough Coronavirus (PCR) Crossmatch 07/17/19 07/17/19 07/18/19 19:55 23:57 02:30 WBC RBC Hgb Hct MCV MCH MCHC RDW Plt Count Lymph % (Auto) [place] % (Auto) Lymph # [place] # Baso # Seg Neutrophils % Seg Neuts % (Manual) Lymphocytes % (Manual) Monocytes % (Manual) Basophils % (Manual) Nucleated RBC % Seg Neutrophils # Seg Neutrophils # Man Lymphocytes # (Manual) Monocytes # (Manual) Eosinophils # (Manual) Basophils # (Manual) PT INR D-Dimer ABG pH 7.344 L 7.294 L ABG pO2 78.5 L 119.2 H ABG HCO3 ABG O2 Saturation ABG Base Excess -3.3 L -2.6 L ABG Hemoglobin 8.6 L 8.1 L Oxyhemoglobin 94.8 L Sodium Potassium Chloride Carbon Dioxide BUN Creatinine Glucose POC Glucose 148 H Lactic Acid Calcium Magnesium Iron TIBC Ferritin AST ALT Lactate Dehydrogenase Troponin T C-Reactive Protein Total Protein Albumin Prealbumin Cholesterol LDL Cholesterol Direct HDL Cholesterol Urine WBC (Auto) Vancomycin Trough Coronavirus (PCR) Crossmatch 07/18/19 07/18/19 07/18/19 04:49 05:22 05:22 WBC 15.9 H RBC 3.00 L Hgb 8.1 L Hct 26.0 L MCV MCH 27 L MCHC 31 L RDW 19.4 H Plt Count 733 H Lymph % (Auto) 6.3 L [place] % (Auto) 7.4 H Lymph # 1.0 L [place] # 1.2 H Baso # 0.2 H Seg Neutrophils % 83.8 H Seg Neuts % (Manual) Lymphocytes % (Manual) Monocytes % (Manual) Basophils % (Manual) Nucleated RBC % Seg Neutrophils # 13.3 H Seg Neutrophils # Man Lymphocytes # (Manual) Monocytes # (Manual) Eosinophils # (Manual) Basophils # (Manual) PT INR D-Dimer ABG pH ABG pO2 ABG HCO3 ABG O2 Saturation ABG Base Excess ABG Hemoglobin Oxyhemoglobin Sodium Potassium Chloride 110.6 H Carbon Dioxide BUN 61 H Creatinine Glucose 109 H POC Glucose 116 H Lactic Acid Calcium Magnesium Iron TIBC Ferritin AST ALT Lactate Dehydrogenase Troponin T C-Reactive Protein Total Protein Albumin Prealbumin Cholesterol LDL Cholesterol Direct HDL Cholesterol Urine WBC (Auto) Vancomycin Trough Coronavirus (PCR) Crossmatch 07/18/19 07/18/19 07/18/19 12:23 18:06 22:20 WBC RBC Hgb Hct MCV MCH MCHC RDW Plt Count Lymph % (Auto) [place] % (Auto) Lymph # [place] # Baso # Seg Neutrophils % Seg Neuts % (Manual) Lymphocytes % (Manual) Monocytes % (Manual) Basophils % (Manual) Nucleated RBC % Seg Neutrophils # Seg Neutrophils # Man Lymphocytes # (Manual) Monocytes # (Manual) Eosinophils # (Manual) Basophils # (Manual) PT INR D-Dimer ABG pH 7.338 L ABG pO2 135.1 H ABG HCO3 ABG O2 Saturation ABG Base Excess ABG Hemoglobin 9.2 L Oxyhemoglobin Sodium Potassium Chloride Carbon Dioxide BUN Creatinine Glucose POC Glucose 114 H 113 H Lactic Acid Calcium Magnesium Iron TIBC Ferritin AST ALT Lactate Dehydrogenase Troponin T C-Reactive Protein Total Protein Albumin Prealbumin Cholesterol LDL Cholesterol Direct HDL Cholesterol Urine WBC (Auto) Vancomycin Trough Coronavirus (PCR) Crossmatch 07/18/19 07/19/19 07/19/19 23:33 03:45 05:18 WBC RBC Hgb Hct MCV MCH MCHC RDW Plt Count Lymph % (Auto) [place] % (Auto) Lymph # [place] # Baso # Seg Neutrophils % Seg Neuts % (Manual) Lymphocytes % (Manual) Monocytes % (Manual) Basophils % (Manual) Nucleated RBC % Seg Neutrophils # Seg Neutrophils # Man Lymphocytes # (Manual) Monocytes # (Manual) Eosinophils # (Manual) Basophils # (Manual) PT INR D-Dimer ABG pH 7.342 L ABG pO2 95.0 H ABG HCO3 ABG O2 Saturation ABG Base Excess ABG Hemoglobin 8.5 L Oxyhemoglobin Sodium Potassium Chloride Carbon Dioxide BUN Creatinine Glucose POC Glucose 125 H 111 H Lactic Acid Calcium Magnesium Iron TIBC Ferritin AST ALT Lactate Dehydrogenase Troponin T C-Reactive Protein Total Protein Albumin Prealbumin Cholesterol LDL Cholesterol Direct HDL Cholesterol Urine WBC (Auto) Vancomycin Trough Coronavirus (PCR) Crossmatch 07/19/19 07/19/19 07/19/19 08:45 08:45 11:47 WBC 15.9 H RBC 3.31 L Hgb 9.1 L Hct 28.4 L MCV MCH 27 L MCHC RDW 19.1 H Plt Count 858 H Lymph % (Auto) 4.9 L [place] % (Auto) 8.1 H Lymph # 0.8 L [place] # 1.3 H Baso # Seg Neutrophils % 85.5 H Seg Neuts % (Manual) Lymphocytes % (Manual) Monocytes % (Manual) Basophils % (Manual) Nucleated RBC % Seg Neutrophils # 13.6 H Seg Neutrophils # Man Lymphocytes # (Manual) Monocytes # (Manual) Eosinophils # (Manual) Basophils # (Manual) PT INR D-Dimer ABG pH ABG pO2 ABG HCO3 ABG O2 Saturation ABG Base Excess ABG Hemoglobin Oxyhemoglobin Sodium Potassium Chloride 111.6 H Carbon Dioxide BUN 50 H Creatinine 0.7 L Glucose 118 H POC Glucose 114 H Lactic Acid Calcium Magnesium Iron TIBC Ferritin AST ALT Lactate Dehydrogenase Troponin T C-Reactive Protein Total Protein Albumin Prealbumin Cholesterol LDL Cholesterol Direct HDL Cholesterol Urine WBC (Auto) Vancomycin Trough Coronavirus (PCR) Crossmatch 07/19/19 07/19/19 07/20/19 18:25 23:44 04:39 WBC RBC Hgb Hct MCV MCH MCHC RDW Plt Count Lymph % (Auto) [place] % (Auto) Lymph # [place] # Baso # Seg Neutrophils % Seg Neuts % (Manual) Lymphocytes % (Manual) Monocytes % (Manual) Basophils % (Manual) Nucleated RBC % Seg Neutrophils # Seg Neutrophils # Man Lymphocytes # (Manual) Monocytes # (Manual) Eosinophils # (Manual) Basophils # (Manual) PT INR D-Dimer ABG pH ABG pO2 ABG HCO3 ABG O2 Saturation ABG Base Excess ABG Hemoglobin Oxyhemoglobin Sodium Potassium Chloride 110.3 H Carbon Dioxide BUN 44 H Creatinine 0.6 L Glucose 120 H POC Glucose 115 H 117 H Lactic Acid Calcium Magnesium Iron TIBC Ferritin AST ALT Lactate Dehydrogenase Troponin T C-Reactive Protein Total Protein Albumin Prealbumin Cholesterol LDL Cholesterol Direct HDL Cholesterol Urine WBC (Auto) Vancomycin Trough Coronavirus (PCR) Crossmatch 07/20/19 07/21/19 07/21/19 05:30 11:59 17:40 WBC RBC Hgb Hct MCV MCH MCHC RDW Plt Count Lymph % (Auto) [place] % (Auto) Lymph # [place] # Baso # Seg Neutrophils % Seg Neuts % (Manual) Lymphocytes % (Manual) Monocytes % (Manual) Basophils % (Manual) Nucleated RBC % Seg Neutrophils # Seg Neutrophils # Man Lymphocytes # (Manual) Monocytes # (Manual) Eosinophils # (Manual) Basophils # (Manual) PT INR D-Dimer ABG pH ABG pO2 ABG HCO3 ABG O2 Saturation ABG Base Excess ABG Hemoglobin Oxyhemoglobin Sodium Potassium Chloride Carbon Dioxide BUN Creatinine Glucose POC Glucose 131 H 122 H 125 H Lactic Acid Calcium Magnesium Iron TIBC Ferritin AST ALT Lactate Dehydrogenase Troponin T C-Reactive Protein Total Protein Albumin Prealbumin Cholesterol LDL Cholesterol Direct HDL Cholesterol Urine WBC (Auto) Vancomycin Trough Coronavirus (PCR) Crossmatch 07/22/19 07/22/19 07/22/19 05:38 05:38 12:29 WBC 12.6 H RBC 3.19 L Hgb 8.9 L Hct 27.5 L MCV MCH MCHC RDW 18.9 H Plt Count 1101 H* Lymph % (Auto) [place] % (Auto) 12.2 H Lymph # [place] # 1.5 H Baso # Seg Neutrophils % 72.8 H Seg Neuts % (Manual) 76.0 H Lymphocytes % (Manual) 7.0 L Monocytes % (Manual) 14.0 H Basophils % (Manual) Nucleated RBC % 1.0 H Seg Neutrophils # 9.2 H Seg Neutrophils # Man 9.6 H Lymphocytes # (Manual) 0.9 L Monocytes # (Manual) 1.8 H Eosinophils # (Manual) Basophils # (Manual) PT INR D-Dimer ABG pH ABG pO2 ABG HCO3 ABG O2 Saturation ABG Base Excess ABG Hemoglobin Oxyhemoglobin Sodium Potassium 3.4 L Chloride Carbon Dioxide BUN 29 H Creatinine 0.5 L Glucose POC Glucose 116 H Lactic Acid Calcium Magnesium Iron TIBC Ferritin AST ALT Lactate Dehydrogenase Troponin T C-Reactive Protein Total Protein Albumin Prealbumin Cholesterol LDL Cholesterol Direct HDL Cholesterol Urine WBC (Auto) Vancomycin Trough Coronavirus (PCR) Crossmatch 07/22/19 07/22/19 07/23/19 18:20 23:51 04:52 WBC RBC Hgb Hct MCV MCH MCHC RDW Plt Count Lymph % (Auto) [place] % (Auto) Lymph # [place] # Baso # Seg Neutrophils % Seg Neuts % (Manual) Lymphocytes % (Manual) Monocytes % (Manual) Basophils % (Manual) Nucleated RBC % Seg Neutrophils # Seg Neutrophils # Man Lymphocytes # (Manual) Monocytes # (Manual) Eosinophils # (Manual) Basophils # (Manual) PT INR D-Dimer ABG pH ABG pO2 ABG HCO3 ABG O2 Saturation ABG Base Excess ABG Hemoglobin Oxyhemoglobin Sodium Potassium Chloride Carbon Dioxide BUN 24 H Creatinine 0.4 L Glucose POC Glucose 107 H 110 H Lactic Acid Calcium Magnesium Iron TIBC Ferritin AST ALT Lactate Dehydrogenase Troponin T C-Reactive Protein Total Protein Albumin Prealbumin Cholesterol LDL Cholesterol Direct HDL Cholesterol Urine WBC (Auto) Vancomycin Trough Coronavirus (PCR) Crossmatch 07/23/19 07/23/19 07/24/19 06:00 23:15 04:40 WBC RBC Hgb Hct MCV MCH MCHC RDW Plt Count Lymph % (Auto) [place] % (Auto) Lymph # [place] # Baso # Seg Neutrophils % Seg Neuts % (Manual) Lymphocytes % (Manual) Monocytes % (Manual) Basophils % (Manual) Nucleated RBC % Seg Neutrophils # Seg Neutrophils # Man Lymphocytes # (Manual) Monocytes # (Manual) Eosinophils # (Manual) Basophils # (Manual) PT INR D-Dimer ABG pH ABG pO2 73.5 L ABG HCO3 27.0 H 28.5 H ABG O2 Saturation 94.5 L ABG Base Excess ABG Hemoglobin 9.4 L 8.9 L Oxyhemoglobin 94.0 L 92.7 L Sodium Potassium Chloride Carbon Dioxide BUN Creatinine Glucose POC Glucose 117 H Lactic Acid Calcium Magnesium Iron TIBC Ferritin AST ALT Lactate Dehydrogenase Troponin T C-Reactive Protein Total Protein Albumin Prealbumin Cholesterol LDL Cholesterol Direct HDL Cholesterol Urine WBC (Auto) Vancomycin Trough Coronavirus (PCR) Crossmatch 07/24/19 07/24/19 07/25/19 05:25 12:06 00:16 WBC RBC Hgb Hct MCV MCH MCHC RDW Plt Count Lymph % (Auto) [place] % (Auto) Lymph # [place] # Baso # Seg Neutrophils % Seg Neuts % (Manual) Lymphocytes % (Manual) Monocytes % (Manual) Basophils % (Manual) Nucleated RBC % Seg Neutrophils # Seg Neutrophils # Man Lymphocytes # (Manual) Monocytes # (Manual) Eosinophils # (Manual) Basophils # (Manual) PT INR D-Dimer ABG pH ABG pO2 ABG HCO3 ABG O2 Saturation ABG Base Excess ABG Hemoglobin Oxyhemoglobin Sodium Potassium Chloride Carbon Dioxide BUN Creatinine Glucose POC Glucose 114 H 108 H 106 H Lactic Acid Calcium Magnesium Iron TIBC Ferritin AST ALT Lactate Dehydrogenase Troponin T C-Reactive Protein Total Protein Albumin Prealbumin Cholesterol LDL Cholesterol Direct HDL Cholesterol Urine WBC (Auto) Vancomycin Trough Coronavirus (PCR) Crossmatch 07/25/19 07/25/19 07/25/19 05:14 05:14 05:17 WBC 17.8 H RBC 3.32 L Hgb 9.2 L Hct 28.6 L MCV MCH MCHC RDW 19.9 H Plt Count 994 H Lymph % (Auto) [place] % (Auto) Lymph # [place] # Baso # Seg Neutrophils % Seg Neuts % (Manual) 82.0 H Lymphocytes % (Manual) 5.0 L Monocytes % (Manual) Basophils % (Manual) Nucleated RBC % Seg Neutrophils # Seg Neutrophils # Man 14.6 H Lymphocytes # (Manual) 0.9 L Monocytes # (Manual) 1.2 H Eosinophils # (Manual) Basophils # (Manual) PT INR D-Dimer ABG pH ABG pO2 ABG HCO3 ABG O2 Saturation ABG Base Excess ABG Hemoglobin Oxyhemoglobin Sodium Potassium Chloride Carbon Dioxide BUN Creatinine 0.4 L Glucose 110 H POC Glucose 107 H Lactic Acid Calcium Magnesium Iron TIBC Ferritin AST ALT Lactate Dehydrogenase Troponin T C-Reactive Protein Total Protein Albumin Prealbumin Cholesterol LDL Cholesterol Direct HDL Cholesterol Urine WBC (Auto) Vancomycin Trough Coronavirus (PCR) Crossmatch 07/25/19 07/25/19 07/26/19 11:55 23:49 06:01 WBC RBC Hgb Hct MCV MCH MCHC RDW Plt Count Lymph % (Auto) [place] % (Auto) Lymph # [place] # Baso # Seg Neutrophils % Seg Neuts % (Manual) Lymphocytes % (Manual) Monocytes % (Manual) Basophils % (Manual) Nucleated RBC % Seg Neutrophils # Seg Neutrophils # Man Lymphocytes # (Manual) Monocytes # (Manual) Eosinophils # (Manual) Basophils # (Manual) PT INR D-Dimer ABG pH ABG pO2 ABG HCO3 ABG O2 Saturation ABG Base Excess ABG Hemoglobin Oxyhemoglobin Sodium Potassium Chloride Carbon Dioxide BUN Creatinine Glucose POC Glucose 123 H 118 H 106 H Lactic Acid Calcium Magnesium Iron TIBC Ferritin AST ALT Lactate Dehydrogenase Troponin T C-Reactive Protein Total Protein Albumin Prealbumin Cholesterol LDL Cholesterol Direct HDL Cholesterol Urine WBC (Auto) Vancomycin Trough Coronavirus (PCR) Crossmatch 07/26/19 07/27/19 07/27/19 17:02 00:28 05:16 WBC RBC Hgb Hct MCV MCH MCHC RDW Plt Count Lymph % (Auto) [place] % (Auto) Lymph # [place] # Baso # Seg Neutrophils % Seg Neuts % (Manual) Lymphocytes % (Manual) Monocytes % (Manual) Basophils % (Manual) Nucleated RBC % Seg Neutrophils # Seg Neutrophils # Man Lymphocytes # (Manual) Monocytes # (Manual) Eosinophils # (Manual) Basophils # (Manual) PT INR D-Dimer ABG pH ABG pO2 63.4 L ABG HCO3 31.3 H ABG O2 Saturation 92.7 L ABG Base Excess 6.3 H ABG Hemoglobin 7.6 L Oxyhemoglobin 90.9 L Sodium Potassium Chloride Carbon Dioxide BUN Creatinine Glucose POC Glucose 116 H 158 H Lactic Acid Calcium Magnesium Iron TIBC Ferritin AST ALT Lactate Dehydrogenase Troponin T C-Reactive Protein Total Protein Albumin Prealbumin Cholesterol LDL Cholesterol Direct HDL Cholesterol Urine WBC (Auto) Vancomycin Trough Coronavirus (PCR) Crossmatch 07/28/19 07/28/19 07/28/19 10:13 10:13 23:54 WBC 18.5 H RBC 3.20 L Hgb 8.8 L Hct 26.8 L MCV MCH 27 L MCHC RDW 19.9 H Plt Count 730 H Lymph % (Auto) [place] % (Auto) Lymph # [place] # Baso # Seg Neutrophils % Seg Neuts % (Manual) Lymphocytes % (Manual) Monocytes % (Manual) Basophils % (Manual) Nucleated RBC % Seg Neutrophils # Seg Neutrophils # Man Lymphocytes # (Manual) Monocytes # (Manual) Eosinophils # (Manual) Basophils # (Manual) PT INR D-Dimer ABG pH ABG pO2 ABG HCO3 ABG O2 Saturation ABG Base Excess ABG Hemoglobin Oxyhemoglobin Sodium Potassium 3.2 L Chloride 97.5 L Carbon Dioxide 31 H BUN Creatinine 0.5 L Glucose POC Glucose 120 H Lactic Acid Calcium Magnesium Iron TIBC Ferritin AST ALT Lactate Dehydrogenase Troponin T C-Reactive Protein Total Protein Albumin Prealbumin Cholesterol LDL Cholesterol Direct HDL Cholesterol Urine WBC (Auto) Vancomycin Trough Coronavirus (PCR) Crossmatch 07/29/19 07/29/19 07/29/19 11:57 17:43 Unknown WBC RBC Hgb Hct MCV MCH MCHC RDW Plt Count Lymph % (Auto) [place] % (Auto) Lymph # [place] # Baso # Seg Neutrophils % Seg Neuts % (Manual) Lymphocytes % (Manual) Monocytes % (Manual) Basophils % (Manual) Nucleated RBC % Seg Neutrophils # Seg Neutrophils # Man Lymphocytes # (Manual) Monocytes # (Manual) Eosinophils # (Manual) Basophils # (Manual) PT INR D-Dimer ABG pH ABG pO2 ABG HCO3 ABG O2 Saturation ABG Base Excess ABG Hemoglobin Oxyhemoglobin Sodium Potassium Chloride Carbon Dioxide BUN Creatinine Glucose POC Glucose 112 H Lactic Acid Calcium Magnesium Iron TIBC Ferritin AST ALT Lactate Dehydrogenase Troponin T C-Reactive Protein Total Protein Albumin Prealbumin Cholesterol LDL Cholesterol Direct HDL Cholesterol Urine WBC (Auto) 63.0 H Vancomycin Trough Coronavirus (PCR) Positive A Crossmatch 07/30/19 07/30/19 07/30/19 00:20 04:35 04:35 WBC 24.3 H RBC 3.12 L Hgb 8.5 L Hct 26.3 L MCV MCH 27 L MCHC RDW 20.2 H Plt Count 550 H Lymph % (Auto) [place] % (Auto) Lymph # [place] # Baso # Seg Neutrophils % Seg Neuts % (Manual) Lymphocytes % (Manual) Monocytes % (Manual) Basophils % (Manual) Nucleated RBC % Seg Neutrophils # Seg Neutrophils # Man Lymphocytes # (Manual) Monocytes # (Manual) Eosinophils # (Manual) Basophils # (Manual) PT INR D-Dimer ABG pH ABG pO2 ABG HCO3 ABG O2 Saturation ABG Base Excess ABG Hemoglobin Oxyhemoglobin Sodium Potassium 3.0 L Chloride 96.3 L Carbon Dioxide 32 H BUN Creatinine 0.5 L Glucose POC Glucose 106 H Lactic Acid Calcium Magnesium Iron TIBC Ferritin AST ALT Lactate Dehydrogenase Troponin T C-Reactive Protein Total Protein Albumin Prealbumin Cholesterol LDL Cholesterol Direct HDL Cholesterol Urine WBC (Auto) Vancomycin Trough Coronavirus (PCR) Crossmatch 07/31/19 07/31/19 07/31/19 04:42 04:42 11:33 WBC 23.8 H RBC 3.10 L Hgb 8.4 L Hct 26.1 L MCV MCH 27 L MCHC RDW 19.6 H Plt Count 561 H Lymph % (Auto) [place] % (Auto) Lymph # [place] # Baso # Seg Neutrophils % Seg Neuts % (Manual) Lymphocytes % (Manual) Monocytes % (Manual) Basophils % (Manual) Nucleated RBC % Seg Neutrophils # Seg Neutrophils # Man Lymphocytes # (Manual) Monocytes # (Manual) Eosinophils # (Manual) Basophils # (Manual) PT INR D-Dimer ABG pH ABG pO2 ABG HCO3 ABG O2 Saturation ABG Base Excess ABG Hemoglobin Oxyhemoglobin Sodium 135 L Potassium Chloride 93.9 L Carbon Dioxide 32 H BUN Creatinine 0.4 L Glucose POC Glucose 116 H Lactic Acid Calcium Magnesium Iron TIBC Ferritin AST ALT Lactate Dehydrogenase Troponin T C-Reactive Protein Total Protein Albumin 1.6 L Prealbumin 0.037 L Cholesterol LDL Cholesterol Direct HDL Cholesterol Urine WBC (Auto) Vancomycin Trough Coronavirus (PCR) Crossmatch 07/31/19 08/01/19 08/01/19 23:33 04:57 04:57 WBC 26.7 H RBC 3.12 L Hgb 8.5 L Hct 26.3 L MCV MCH 27 L MCHC RDW 19.2 H Plt Count 602 H Lymph % (Auto) [place] % (Auto) Lymph # [place] # Baso # Seg Neutrophils % Seg Neuts % (Manual) 93.0 H Lymphocytes % (Manual) 2.0 L Monocytes % (Manual) Basophils % (Manual) Nucleated RBC % Seg Neutrophils # Seg Neutrophils # Man 24.8 H Lymphocytes # (Manual) 0.5 L Monocytes # (Manual) 1.1 H Eosinophils # (Manual) Basophils # (Manual) PT INR D-Dimer ABG pH ABG pO2 ABG HCO3 ABG O2 Saturation ABG Base Excess ABG Hemoglobin Oxyhemoglobin Sodium 132 L Potassium Chloride 93.8 L Carbon Dioxide 31 H BUN Creatinine 0.3 L Glucose POC Glucose 148 H Lactic Acid Calcium 8.1 L Magnesium Iron TIBC Ferritin AST ALT Lactate Dehydrogenase Troponin T C-Reactive Protein Total Protein Albumin Prealbumin Cholesterol LDL Cholesterol Direct HDL Cholesterol Urine WBC (Auto) Vancomycin Trough Coronavirus (PCR) Crossmatch 08/01/19 08/02/19 08/02/19 12:16 00:22 05:24 WBC RBC Hgb Hct MCV MCH MCHC RDW Plt Count Lymph % (Auto) [place] % (Auto) Lymph # [place] # Baso # Seg Neutrophils % Seg Neuts % (Manual) Lymphocytes % (Manual) Monocytes % (Manual) Basophils % (Manual) Nucleated RBC % Seg Neutrophils # Seg Neutrophils # Man Lymphocytes # (Manual) Monocytes # (Manual) Eosinophils # (Manual) Basophils # (Manual) PT INR D-Dimer ABG pH ABG pO2 ABG HCO3 ABG O2 Saturation ABG Base Excess ABG Hemoglobin Oxyhemoglobin Sodium Potassium Chloride Carbon Dioxide BUN Creatinine Glucose POC Glucose 120 H 119 H 113 H Lactic Acid Calcium Magnesium Iron TIBC Ferritin AST ALT Lactate Dehydrogenase Troponin T C-Reactive Protein Total Protein Albumin Prealbumin Cholesterol LDL Cholesterol Direct HDL Cholesterol Urine WBC (Auto) Vancomycin Trough Coronavirus (PCR) Crossmatch 08/03/19 08/03/19 08/03/19 05:20 12:01 23:48 WBC RBC Hgb Hct MCV MCH MCHC RDW Plt Count Lymph % (Auto) [place] % (Auto) Lymph # [place] # Baso # Seg Neutrophils % Seg Neuts % (Manual) Lymphocytes % (Manual) Monocytes % (Manual) Basophils % (Manual) Nucleated RBC % Seg Neutrophils # Seg Neutrophils # Man Lymphocytes # (Manual) Monocytes # (Manual) Eosinophils # (Manual) Basophils # (Manual) PT INR D-Dimer ABG pH ABG pO2 ABG HCO3 ABG O2 Saturation ABG Base Excess ABG Hemoglobin Oxyhemoglobin Sodium Potassium Chloride Carbon Dioxide BUN Creatinine Glucose POC Glucose 118 H 106 H 120 H Lactic Acid Calcium Magnesium Iron TIBC Ferritin AST ALT Lactate Dehydrogenase Troponin T C-Reactive Protein Total Protein Albumin Prealbumin Cholesterol LDL Cholesterol Direct HDL Cholesterol Urine WBC (Auto) Vancomycin Trough Coronavirus (PCR) Crossmatch 08/04/19 08/04/19 08/04/19 05:38 05:38 06:29 WBC 26.1 H RBC 2.77 L Hgb 7.5 L Hct 23.2 L MCV MCH 27 L MCHC RDW 19.2 H Plt Count 648 H Lymph % (Auto) [place] % (Auto) Lymph # [place] # Baso # Seg Neutrophils % Seg Neuts % (Manual) 90.5 H Lymphocytes % (Manual) 3.5 L Monocytes % (Manual) Basophils % (Manual) Nucleated RBC % Seg Neutrophils # Seg Neutrophils # Man 23.6 H Lymphocytes # (Manual) 0.9 L Monocytes # (Manual) 1.2 H Eosinophils # (Manual) Basophils # (Manual) PT INR D-Dimer ABG pH ABG pO2 ABG HCO3 ABG O2 Saturation ABG Base Excess ABG Hemoglobin Oxyhemoglobin Sodium 132 L Potassium 3.4 L D Chloride 92.7 L Carbon Dioxide 33 H BUN Creatinine 0.2 L Glucose POC Glucose 108 H Lactic Acid Calcium 8.1 L Magnesium Iron TIBC Ferritin AST ALT Lactate Dehydrogenase Troponin T C-Reactive Protein Total Protein Albumin Prealbumin Cholesterol LDL Cholesterol Direct HDL Cholesterol Urine WBC (Auto) Vancomycin Trough Coronavirus (PCR) Crossmatch 08/04/19 08/05/19 08/05/19 12:30 04:58 04:58 WBC 21.0 H RBC 2.63 L Hgb 7.2 L Hct 21.9 L MCV 83 L MCH 27 L MCHC RDW 18.9 H Plt Count 691 H Lymph % (Auto) [place] % (Auto) Lymph # [place] # Baso # Seg Neutrophils % Seg Neuts % (Manual) 86.0 H Lymphocytes % (Manual) 3.0 L Monocytes % (Manual) 10.0 H Basophils % (Manual) Nucleated RBC % Seg Neutrophils # Seg Neutrophils # Man 18.1 H Lymphocytes # (Manual) 0.6 L Monocytes # (Manual) 2.1 H Eosinophils # (Manual) Basophils # (Manual) PT INR D-Dimer ABG pH ABG pO2 ABG HCO3 ABG O2 Saturation ABG Base Excess ABG Hemoglobin Oxyhemoglobin Sodium 134 L Potassium 3.2 L Chloride 93.2 L Carbon Dioxide 34 H BUN 8 L Creatinine 0.3 L Glucose POC Glucose 138 H Lactic Acid Calcium 8.1 L Magnesium Iron TIBC Ferritin AST ALT Lactate Dehydrogenase Troponin T C-Reactive Protein Total Protein Albumin Prealbumin Cholesterol LDL Cholesterol Direct HDL Cholesterol Urine WBC (Auto) Vancomycin Trough Coronavirus (PCR) Crossmatch 08/05/19 08/05/19 08/05/19 11:53 17:57 23:58 WBC RBC Hgb Hct MCV MCH MCHC RDW Plt Count Lymph % (Auto) [place] % (Auto) Lymph # [place] # Baso # Seg Neutrophils % Seg Neuts % (Manual) Lymphocytes % (Manual) Monocytes % (Manual) Basophils % (Manual) Nucleated RBC % Seg Neutrophils # Seg Neutrophils # Man Lymphocytes # (Manual) Monocytes # (Manual) Eosinophils # (Manual) Basophils # (Manual) PT INR D-Dimer ABG pH ABG pO2 ABG HCO3 ABG O2 Saturation ABG Base Excess ABG Hemoglobin Oxyhemoglobin Sodium Potassium Chloride Carbon Dioxide BUN Creatinine Glucose POC Glucose 106 H 111 H 116 H Lactic Acid Calcium Magnesium Iron TIBC Ferritin AST ALT Lactate Dehydrogenase Troponin T C-Reactive Protein Total Protein Albumin Prealbumin Cholesterol LDL Cholesterol Direct HDL Cholesterol Urine WBC (Auto) Vancomycin Trough Coronavirus (PCR) Crossmatch 08/06/19 08/06/19 08/06/19 04:11 04:11 06:04 WBC 20.8 H RBC 2.80 L Hgb 7.6 L Hct 23.5 L MCV MCH 27 L MCHC RDW 19.0 H Plt Count 723 H Lymph % (Auto) [place] % (Auto) Lymph # [place] # Baso # Seg Neutrophils % Seg Neuts % (Manual) 88.0 H Lymphocytes % (Manual) 3.0 L Monocytes % (Manual) Basophils % (Manual) Nucleated RBC % Seg Neutrophils # Seg Neutrophils # Man 18.3 H Lymphocytes # (Manual) 0.6 L Monocytes # (Manual) Eosinophils # (Manual) Basophils # (Manual) 0.2 H PT INR D-Dimer ABG pH ABG pO2 ABG HCO3 ABG O2 Saturation ABG Base Excess ABG Hemoglobin Oxyhemoglobin Sodium Potassium 3.4 L Chloride 95.2 L Carbon Dioxide 32 H BUN Creatinine 0.3 L Glucose POC Glucose 108 H Lactic Acid Calcium 8.2 L Magnesium Iron TIBC Ferritin AST ALT Lactate Dehydrogenase Troponin T C-Reactive Protein Total Protein Albumin Prealbumin Cholesterol LDL Cholesterol Direct HDL Cholesterol Urine WBC (Auto) Vancomycin Trough Coronavirus (PCR) Crossmatch 08/06/19 08/06/19 08/07/19 12:23 17:13 00:21 WBC RBC Hgb Hct MCV MCH MCHC RDW Plt Count Lymph % (Auto) [place] % (Auto) Lymph # [place] # Baso # Seg Neutrophils % Seg Neuts % (Manual) Lymphocytes % (Manual) Monocytes % (Manual) Basophils % (Manual) Nucleated RBC % Seg Neutrophils # Seg Neutrophils # Man Lymphocytes # (Manual) Monocytes # (Manual) Eosinophils # (Manual) Basophils # (Manual) PT INR D-Dimer ABG pH ABG pO2 ABG HCO3 ABG O2 Saturation ABG Base Excess ABG Hemoglobin Oxyhemoglobin Sodium Potassium Chloride Carbon Dioxide BUN Creatinine Glucose POC Glucose 112 H 132 H 147 H Lactic Acid Calcium Magnesium Iron TIBC Ferritin AST ALT Lactate Dehydrogenase Troponin T C-Reactive Protein Total Protein Albumin Prealbumin Cholesterol LDL Cholesterol Direct HDL Cholesterol Urine WBC (Auto) Vancomycin Trough Coronavirus (PCR) Crossmatch 08/07/19 08/07/19 08/07/19 05:16 05:23 05:23 WBC 30.3 H RBC 2.69 L Hgb 7.1 L Hct 22.2 L MCV 83 L MCH 27 L MCHC RDW 19.1 H Plt Count 650 H Lymph % (Auto) [place] % (Auto) Lymph # [place] # Baso # Seg Neutrophils % Seg Neuts % (Manual) 88.0 H Lymphocytes % (Manual) 5.0 L Monocytes % (Manual) Basophils % (Manual) Nucleated RBC % Seg Neutrophils # Seg Neutrophils # Man 26.7 H Lymphocytes # (Manual) Monocytes # (Manual) 2.1 H Eosinophils # (Manual) Basophils # (Manual) PT INR D-Dimer ABG pH ABG pO2 ABG HCO3 ABG O2 Saturation ABG Base Excess ABG Hemoglobin Oxyhemoglobin Sodium 135 L Potassium 3.4 L Chloride 95.4 L Carbon Dioxide 32 H BUN Creatinine 0.4 L Glucose 120 H POC Glucose 120 H Lactic Acid Calcium 7.7 L Magnesium Iron TIBC Ferritin AST ALT Lactate Dehydrogenase Troponin T C-Reactive Protein Total Protein Albumin Prealbumin Cholesterol LDL Cholesterol Direct HDL Cholesterol Urine WBC (Auto) Vancomycin Trough Coronavirus (PCR) Crossmatch 08/07/19 08/07/19 08/07/19 10:24 10:24 11:10 WBC RBC Hgb Hct MCV MCH MCHC RDW Plt Count Lymph % (Auto) [place] % (Auto) Lymph # [place] # Baso # Seg Neutrophils % Seg Neuts % (Manual) Lymphocytes % (Manual) Monocytes % (Manual) Basophils % (Manual) Nucleated RBC % Seg Neutrophils # Seg Neutrophils # Man Lymphocytes # (Manual) Monocytes # (Manual) Eosinophils # (Manual) Basophils # (Manual) PT INR D-Dimer 1808.06 H ABG pH ABG pO2 73.3 L ABG HCO3 33.9 H ABG O2 Saturation ABG Base Excess 9.0 H ABG Hemoglobin 6.3 L Oxyhemoglobin 94.3 L Sodium Potassium Chloride Carbon Dioxide BUN Creatinine Glucose POC Glucose Lactic Acid Calcium Magnesium Iron TIBC Ferritin AST ALT Lactate Dehydrogenase Troponin T C-Reactive Protein 11.10 H Total Protein Albumin Prealbumin Cholesterol LDL Cholesterol Direct HDL Cholesterol Urine WBC (Auto) Vancomycin Trough Coronavirus (PCR) Crossmatch 08/07/19 08/08/19 08/08/19 12:01 04:41 04:41 WBC 22.1 H RBC 2.82 L Hgb 7.7 L Hct 23.6 L MCV MCH 27 L MCHC RDW 19.1 H Plt Count 722 H Lymph % (Auto) [place] % (Auto) Lymph # [place] # Baso # Seg Neutrophils % Seg Neuts % (Manual) 90.0 H Lymphocytes % (Manual) 3.0 L Monocytes % (Manual) Basophils % (Manual) Nucleated RBC % Seg Neutrophils # Seg Neutrophils # Man 19.9 H Lymphocytes # (Manual) 0.7 L Monocytes # (Manual) 1.3 H Eosinophils # (Manual) Basophils # (Manual) PT INR D-Dimer ABG pH ABG pO2 ABG HCO3 ABG O2 Saturation ABG Base Excess ABG Hemoglobin Oxyhemoglobin Sodium 136 L Potassium Chloride 97.8 L Carbon Dioxide BUN Creatinine 0.3 L Glucose 105 H POC Glucose 130 H Lactic Acid Calcium 7.8 L Magnesium Iron TIBC Ferritin AST ALT Lactate Dehydrogenase Troponin T C-Reactive Protein Total Protein Albumin Prealbumin Cholesterol LDL Cholesterol Direct HDL Cholesterol Urine WBC (Auto) Vancomycin Trough Coronavirus (PCR) Crossmatch 08/08/19 08/08/19 08/09/19 11:46 18:35 00:12 WBC RBC Hgb Hct MCV MCH MCHC RDW Plt Count Lymph % (Auto) [place] % (Auto) Lymph # [place] # Baso # Seg Neutrophils % Seg Neuts % (Manual) Lymphocytes % (Manual) Monocytes % (Manual) Basophils % (Manual) Nucleated RBC % Seg Neutrophils # Seg Neutrophils # Man Lymphocytes # (Manual) Monocytes # (Manual) Eosinophils # (Manual) Basophils # (Manual) PT INR D-Dimer ABG pH ABG pO2 ABG HCO3 ABG O2 Saturation ABG Base Excess ABG Hemoglobin Oxyhemoglobin Sodium Potassium Chloride Carbon Dioxide BUN Creatinine Glucose POC Glucose 117 H 117 H 117 H Lactic Acid Calcium Magnesium Iron TIBC Ferritin AST ALT Lactate Dehydrogenase Troponin T C-Reactive Protein Total Protein Albumin Prealbumin Cholesterol LDL Cholesterol Direct HDL Cholesterol Urine WBC (Auto) Vancomycin Trough Coronavirus (PCR) Crossmatch 08/09/19 08/09/19 08/09/19 05:33 12:22 17:48 WBC RBC Hgb Hct MCV MCH MCHC RDW Plt Count Lymph % (Auto) [place] % (Auto) Lymph # [place] # Baso # Seg Neutrophils % Seg Neuts % (Manual) Lymphocytes % (Manual) Monocytes % (Manual) Basophils % (Manual) Nucleated RBC % Seg Neutrophils # Seg Neutrophils # Man Lymphocytes # (Manual) Monocytes # (Manual) Eosinophils # (Manual) Basophils # (Manual) PT INR D-Dimer ABG pH ABG pO2 ABG HCO3 ABG O2 Saturation ABG Base Excess ABG Hemoglobin Oxyhemoglobin Sodium Potassium Chloride Carbon Dioxide BUN Creatinine Glucose POC Glucose 119 H 133 H 123 H Lactic Acid Calcium Magnesium Iron TIBC Ferritin AST ALT Lactate Dehydrogenase Troponin T C-Reactive Protein Total Protein Albumin Prealbumin Cholesterol LDL Cholesterol Direct HDL Cholesterol Urine WBC (Auto) Vancomycin Trough Coronavirus (PCR) Crossmatch 08/09/19 08/09/19 08/10/19 17:59 18:15 00:02 WBC RBC Hgb 6.7 L Hct 20.4 L MCV MCH MCHC RDW Plt Count Lymph % (Auto) [place] % (Auto) Lymph # [place] # Baso # Seg Neutrophils % Seg Neuts % (Manual) Lymphocytes % (Manual) Monocytes % (Manual) Basophils % (Manual) Nucleated RBC % Seg Neutrophils # Seg Neutrophils # Man Lymphocytes # (Manual) Monocytes # (Manual) Eosinophils # (Manual) Basophils # (Manual) PT INR D-Dimer ABG pH ABG pO2 ABG HCO3 ABG O2 Saturation ABG Base Excess ABG Hemoglobin Oxyhemoglobin Sodium Potassium Chloride Carbon Dioxide BUN Creatinine Glucose POC Glucose 124 H Lactic Acid Calcium Magnesium Iron TIBC Ferritin AST ALT Lactate Dehydrogenase Troponin T C-Reactive Protein Total Protein Albumin Prealbumin Cholesterol LDL Cholesterol Direct HDL Cholesterol Urine WBC (Auto) Vancomycin Trough Coronavirus (PCR) Crossmatch See Detail 08/10/19 08/10/19 08/10/19 05:47 08:00 08:00 WBC 16.9 H RBC 2.94 L Hgb 8.2 L Hct 24.9 L MCV MCH MCHC RDW 17.0 H Plt Count 661 H Lymph % (Auto) [place] % (Auto) Lymph # [place] # Baso # Seg Neutrophils % Seg Neuts % (Manual) Lymphocytes % (Manual) Monocytes % (Manual) Basophils % (Manual) Nucleated RBC % Seg Neutrophils # Seg Neutrophils # Man Lymphocytes # (Manual) Monocytes # (Manual) Eosinophils # (Manual) Basophils # (Manual) PT INR D-Dimer ABG pH ABG pO2 ABG HCO3 ABG O2 Saturation ABG Base Excess ABG Hemoglobin Oxyhemoglobin Sodium Potassium Chloride Carbon Dioxide BUN Creatinine 0.3 L Glucose 116 H POC Glucose 148 H Lactic Acid Calcium 7.7 L Magnesium Iron TIBC Ferritin AST ALT Lactate Dehydrogenase Troponin T C-Reactive Protein Total Protein Albumin Prealbumin Cholesterol LDL Cholesterol Direct HDL Cholesterol Urine WBC (Auto) Vancomycin Trough Coronavirus (PCR) Crossmatch 08/10/19 08/10/19 08/10/19 12:38 18:06 23:56 WBC RBC Hgb Hct MCV MCH MCHC RDW Plt Count Lymph % (Auto) [place] % (Auto) Lymph # [place] # Baso # Seg Neutrophils % Seg Neuts % (Manual) Lymphocytes % (Manual) Monocytes % (Manual) Basophils % (Manual) Nucleated RBC % Seg Neutrophils # Seg Neutrophils # Man Lymphocytes # (Manual) Monocytes # (Manual) Eosinophils # (Manual) Basophils # (Manual) PT INR D-Dimer ABG pH ABG pO2 ABG HCO3 ABG O2 Saturation ABG Base Excess ABG Hemoglobin Oxyhemoglobin Sodium Potassium Chloride Carbon Dioxide BUN Creatinine Glucose POC Glucose 113 H 126 H 115 H Lactic Acid Calcium Magnesium Iron TIBC Ferritin AST ALT Lactate Dehydrogenase Troponin T C-Reactive Protein Total Protein Albumin Prealbumin Cholesterol LDL Cholesterol Direct HDL Cholesterol Urine WBC (Auto) Vancomycin Trough Coronavirus (PCR) Crossmatch 08/10/19 08/11/19 08/12/19 Unknown 18:10 03:30 WBC 14.4 H RBC 2.58 L Hgb 7.4 L Hct 22.1 L MCV MCH MCHC RDW 17.4 H Plt Count 786 H Lymph % (Auto) [place] % (Auto) Lymph # [place] # Baso # Seg Neutrophils % Seg Neuts % (Manual) Lymphocytes % (Manual) Monocytes % (Manual) Basophils % (Manual) Nucleated RBC % Seg Neutrophils # Seg Neutrophils # Man Lymphocytes # (Manual) Monocytes # (Manual) Eosinophils # (Manual) Basophils # (Manual) PT INR D-Dimer ABG pH ABG pO2 ABG HCO3 ABG O2 Saturation ABG Base Excess ABG Hemoglobin Oxyhemoglobin Sodium Potassium Chloride Carbon Dioxide BUN Creatinine Glucose POC Glucose 106 H Lactic Acid Calcium Magnesium Iron TIBC Ferritin AST ALT Lactate Dehydrogenase Troponin T C-Reactive Protein Total Protein Albumin Prealbumin Cholesterol LDL Cholesterol Direct HDL Cholesterol Urine WBC (Auto) Vancomycin Trough Coronavirus (PCR) Positive A Crossmatch 08/12/19 08/12/19 08/13/19 03:30 12:08 05:25 WBC RBC Hgb Hct MCV MCH MCHC RDW Plt Count Lymph % (Auto) [place] % (Auto) Lymph # [place] # Baso # Seg Neutrophils % Seg Neuts % (Manual) Lymphocytes % (Manual) Monocytes % (Manual) Basophils % (Manual) Nucleated RBC % Seg Neutrophils # Seg Neutrophils # Man Lymphocytes # (Manual) Monocytes # (Manual) Eosinophils # (Manual) Basophils # (Manual) PT INR D-Dimer ABG pH ABG pO2 ABG HCO3 ABG O2 Saturation ABG Base Excess ABG Hemoglobin Oxyhemoglobin Sodium Potassium Chloride Carbon Dioxide BUN 7 L Creatinine 0.3 L Glucose 117 H POC Glucose 112 H 126 H Lactic Acid Calcium 7.8 L Magnesium Iron TIBC Ferritin AST ALT Lactate Dehydrogenase Troponin T C-Reactive Protein Total Protein Albumin Prealbumin Cholesterol LDL Cholesterol Direct HDL Cholesterol Urine WBC (Auto) Vancomycin Trough Coronavirus (PCR) Crossmatch 08/13/19 08/13/19 08/13/19 11:36 17:10 19:06 WBC RBC Hgb Hct MCV MCH MCHC RDW Plt Count Lymph % (Auto) [place] % (Auto) Lymph # [place] # Baso # Seg Neutrophils % Seg Neuts % (Manual) Lymphocytes % (Manual) Monocytes % (Manual) Basophils % (Manual) Nucleated RBC % Seg Neutrophils # Seg Neutrophils # Man Lymphocytes # (Manual) Monocytes # (Manual) Eosinophils # (Manual) Basophils # (Manual) PT INR D-Dimer ABG pH ABG pO2 105.0 H ABG HCO3 28.5 H ABG O2 Saturation ABG Base Excess 3.5 H ABG Hemoglobin 7.8 L Oxyhemoglobin Sodium Potassium Chloride Carbon Dioxide BUN Creatinine Glucose POC Glucose 143 H 107 H Lactic Acid Calcium Magnesium Iron TIBC Ferritin AST ALT Lactate Dehydrogenase Troponin T C-Reactive Protein Total Protein Albumin Prealbumin Cholesterol LDL Cholesterol Direct HDL Cholesterol Urine WBC (Auto) Vancomycin Trough Coronavirus (PCR) Crossmatch 08/13/19 08/14/19 08/14/19 23:23 05:00 05:00 WBC 14.3 H RBC 2.76 L Hgb 7.8 L Hct 23.9 L MCV MCH MCHC RDW 18.7 H Plt Count 896 H Lymph % (Auto) [place] % (Auto) Lymph # [place] # Baso # Seg Neutrophils % Seg Neuts % (Manual) Lymphocytes % (Manual) Monocytes % (Manual) Basophils % (Manual) Nucleated RBC % Seg Neutrophils # Seg Neutrophils # Man Lymphocytes # (Manual) Monocytes # (Manual) Eosinophils # (Manual) Basophils # (Manual) PT INR D-Dimer ABG pH ABG pO2 ABG HCO3 ABG O2 Saturation ABG Base Excess ABG Hemoglobin Oxyhemoglobin Sodium Potassium Chloride Carbon Dioxide BUN 6 L Creatinine 0.3 L Glucose POC Glucose 125 H Lactic Acid Calcium 8.2 L Magnesium Iron TIBC Ferritin AST ALT Lactate Dehydrogenase Troponin T C-Reactive Protein Total Protein Albumin Prealbumin Cholesterol LDL Cholesterol Direct HDL Cholesterol Urine WBC (Auto) Vancomycin Trough Coronavirus (PCR) Crossmatch 08/14/19 08/15/19 08/15/19 05:07 00:25 05:42 WBC RBC Hgb Hct MCV MCH MCHC RDW Plt Count Lymph % (Auto) [place] % (Auto) Lymph # [place] # Baso # Seg Neutrophils % Seg Neuts % (Manual) Lymphocytes % (Manual) Monocytes % (Manual) Basophils % (Manual) Nucleated RBC % Seg Neutrophils # Seg Neutrophils # Man Lymphocytes # (Manual) Monocytes # (Manual) Eosinophils # (Manual) Basophils # (Manual) PT INR D-Dimer ABG pH ABG pO2 ABG HCO3 ABG O2 Saturation ABG Base Excess ABG Hemoglobin Oxyhemoglobin Sodium Potassium Chloride Carbon Dioxide BUN Creatinine Glucose POC Glucose 128 H 117 H 115 H Lactic Acid Calcium Magnesium Iron TIBC Ferritin AST ALT Lactate Dehydrogenase Troponin T C-Reactive Protein Total Protein Albumin Prealbumin Cholesterol LDL Cholesterol Direct HDL Cholesterol Urine WBC (Auto) Vancomycin Trough Coronavirus (PCR) Crossmatch 08/15/19 08/15/19 08/15/19 06:10 06:10 06:10 WBC 11.6 H RBC 2.68 L Hgb 7.7 L Hct 23.3 L MCV MCH MCHC RDW 19.2 H Plt Count 885 H Lymph % (Auto) [place] % (Auto) Lymph # [place] # Baso # Seg Neutrophils % Seg Neuts % (Manual) Lymphocytes % (Manual) Monocytes % (Manual) Basophils % (Manual) Nucleated RBC % Seg Neutrophils # Seg Neutrophils # Man Lymphocytes # (Manual) Monocytes # (Manual) Eosinophils # (Manual) Basophils # (Manual) PT INR D-Dimer ABG pH ABG pO2 ABG HCO3 ABG O2 Saturation ABG Base Excess ABG Hemoglobin Oxyhemoglobin Sodium Potassium Chloride Carbon Dioxide BUN 6 L Creatinine 0.3 L Glucose 107 H POC Glucose Lactic Acid Calcium 8.2 L Magnesium 1.50 L Iron TIBC Ferritin AST ALT Lactate Dehydrogenase Troponin T C-Reactive Protein Total Protein Albumin Prealbumin Cholesterol LDL Cholesterol Direct HDL Cholesterol Urine WBC (Auto) Vancomycin Trough Coronavirus (PCR) Crossmatch 08/15/19 08/16/19 08/16/19 12:12 00:05 05:00 WBC 13.3 H RBC 2.87 L Hgb 8.1 L Hct 24.9 L MCV MCH MCHC RDW 18.7 H Plt Count 962 H Lymph % (Auto) [place] % (Auto) Lymph # [place] # Baso # Seg Neutrophils % Seg Neuts % (Manual) Lymphocytes % (Manual) Monocytes % (Manual) Basophils % (Manual) Nucleated RBC % Seg Neutrophils # Seg Neutrophils # Man Lymphocytes # (Manual) Monocytes # (Manual) Eosinophils # (Manual) Basophils # (Manual) PT INR D-Dimer ABG pH ABG pO2 ABG HCO3 ABG O2 Saturation ABG Base Excess ABG Hemoglobin Oxyhemoglobin Sodium Potassium Chloride Carbon Dioxide BUN Creatinine Glucose POC Glucose 112 H 111 H Lactic Acid Calcium Magnesium Iron TIBC Ferritin AST ALT Lactate Dehydrogenase Troponin T C-Reactive Protein Total Protein Albumin Prealbumin Cholesterol LDL Cholesterol Direct HDL Cholesterol Urine WBC (Auto) Vancomycin Trough Coronavirus (PCR) Crossmatch 08/16/19 08/16/19 08/16/19 05:00 05:00 23:35 WBC RBC Hgb Hct MCV MCH MCHC RDW Plt Count Lymph % (Auto) [place] % (Auto) Lymph # [place] # Baso # Seg Neutrophils % Seg Neuts % (Manual) Lymphocytes % (Manual) Monocytes % (Manual) Basophils % (Manual) Nucleated RBC % Seg Neutrophils # Seg Neutrophils # Man Lymphocytes # (Manual) Monocytes # (Manual) Eosinophils # (Manual) Basophils # (Manual) PT INR D-Dimer ABG pH ABG pO2 ABG HCO3 ABG O2 Saturation ABG Base Excess ABG Hemoglobin Oxyhemoglobin Sodium 135 L Potassium Chloride Carbon Dioxide BUN 6 L Creatinine 0.3 L Glucose POC Glucose 108 H Lactic Acid Calcium 8.2 L Magnesium Iron TIBC Ferritin AST ALT Lactate Dehydrogenase Troponin T C-Reactive Protein 2.70 H Total Protein Albumin 2.1 L Prealbumin Cholesterol LDL Cholesterol Direct HDL Cholesterol Urine WBC (Auto) Vancomycin Trough Coronavirus (PCR) Crossmatch 08/17/19 08/17/19 08/17/19 05:15 20:20 23:42 WBC RBC Hgb Hct MCV MCH MCHC RDW Plt Count Lymph % (Auto) [place] % (Auto) Lymph # [place] # Baso # Seg Neutrophils % Seg Neuts % (Manual) Lymphocytes % (Manual) Monocytes % (Manual) Basophils % (Manual) Nucleated RBC % Seg Neutrophils # Seg Neutrophils # Man Lymphocytes # (Manual) Monocytes # (Manual) Eosinophils # (Manual) Basophils # (Manual) PT INR D-Dimer ABG pH ABG pO2 ABG HCO3 27.8 H ABG O2 Saturation ABG Base Excess ABG Hemoglobin 11.4 L Oxyhemoglobin 94.6 L Sodium Potassium Chloride Carbon Dioxide BUN Creatinine Glucose POC Glucose 138 H 132 H Lactic Acid Calcium Magnesium Iron TIBC Ferritin AST ALT Lactate Dehydrogenase Troponin T C-Reactive Protein Total Protein Albumin Prealbumin Cholesterol LDL Cholesterol Direct HDL Cholesterol Urine WBC (Auto) Vancomycin Trough Coronavirus (PCR) Crossmatch 08/18/19 08/18/19 08/18/19 06:00 06:00 12:02 WBC 19.7 H RBC 3.30 L Hgb 9.3 L Hct 28.5 L MCV MCH MCHC RDW 18.9 H Plt Count 923 H Lymph % (Auto) [place] % (Auto) Lymph # [place] # Baso # Seg Neutrophils % Seg Neuts % (Manual) Lymphocytes % (Manual) Monocytes % (Manual) Basophils % (Manual) Nucleated RBC % Seg Neutrophils # Seg Neutrophils # Man Lymphocytes # (Manual) Monocytes # (Manual) Eosinophils # (Manual) Basophils # (Manual) PT INR D-Dimer ABG pH ABG pO2 ABG HCO3 ABG O2 Saturation ABG Base Excess ABG Hemoglobin Oxyhemoglobin Sodium 136 L Potassium Chloride Carbon Dioxide BUN Creatinine 0.4 L Glucose 71 L POC Glucose 123 H Lactic Acid Calcium Magnesium Iron TIBC Ferritin AST ALT Lactate Dehydrogenase Troponin T C-Reactive Protein Total Protein Albumin Prealbumin Cholesterol LDL Cholesterol Direct HDL Cholesterol Urine WBC (Auto) Vancomycin Trough Coronavirus (PCR) Crossmatch 08/18/19 08/18/19 08/19/19 18:23 23:16 04:57 WBC RBC Hgb Hct MCV MCH MCHC RDW Plt Count Lymph % (Auto) [place] % (Auto) Lymph # [place] # Baso # Seg Neutrophils % Seg Neuts % (Manual) Lymphocytes % (Manual) Monocytes % (Manual) Basophils % (Manual) Nucleated RBC % Seg Neutrophils # Seg Neutrophils # Man Lymphocytes # (Manual) Monocytes # (Manual) Eosinophils # (Manual) Basophils # (Manual) PT INR D-Dimer ABG pH ABG pO2 ABG HCO3 ABG O2 Saturation ABG Base Excess ABG Hemoglobin Oxyhemoglobin Sodium Potassium Chloride Carbon Dioxide BUN Creatinine Glucose POC Glucose 140 H 159 H 134 H Lactic Acid Calcium Magnesium Iron TIBC Ferritin AST ALT Lactate Dehydrogenase Troponin T C-Reactive Protein Total Protein Albumin Prealbumin Cholesterol LDL Cholesterol Direct HDL Cholesterol Urine WBC (Auto) Vancomycin Trough Coronavirus (PCR) Crossmatch 08/19/19 08/19/19 08/19/19 07:44 08:17 18:15 WBC 30.5 H RBC 2.87 L Hgb 7.9 L Hct 24.5 L MCV MCH MCHC RDW 18.8 H Plt Count 772 H Lymph % (Auto) [place] % (Auto) Lymph # [place] # Baso # Seg Neutrophils % Seg Neuts % (Manual) 89.0 H Lymphocytes % (Manual) 4.0 L Monocytes % (Manual) Basophils % (Manual) 2.0 H Nucleated RBC % Seg Neutrophils # Seg Neutrophils # Man 27.1 H Lymphocytes # (Manual) Monocytes # (Manual) 0.9 H Eosinophils # (Manual) 0.6 H Basophils # (Manual) 0.6 H PT INR D-Dimer ABG pH ABG pO2 ABG HCO3 ABG O2 Saturation ABG Base Excess ABG Hemoglobin Oxyhemoglobin Sodium 136 L Potassium Chloride Carbon Dioxide BUN Creatinine 0.3 L Glucose POC Glucose 106 H Lactic Acid Calcium 8.2 L Magnesium Iron TIBC Ferritin AST ALT Lactate Dehydrogenase Troponin T C-Reactive Protein Total Protein Albumin Prealbumin Cholesterol LDL Cholesterol Direct HDL Cholesterol Urine WBC (Auto) Vancomycin Trough Coronavirus (PCR) Crossmatch 08/19/19 08/20/19 08/20/19 23:46 06:20 18:34 WBC RBC Hgb Hct MCV MCH MCHC RDW Plt Count Lymph % (Auto) [place] % (Auto) Lymph # [place] # Baso # Seg Neutrophils % Seg Neuts % (Manual) Lymphocytes % (Manual) Monocytes % (Manual) Basophils % (Manual) Nucleated RBC % Seg Neutrophils # Seg Neutrophils # Man Lymphocytes # (Manual) Monocytes # (Manual) Eosinophils # (Manual) Basophils # (Manual) PT INR D-Dimer ABG pH ABG pO2 ABG HCO3 ABG O2 Saturation ABG Base Excess ABG Hemoglobin Oxyhemoglobin Sodium Potassium Chloride Carbon Dioxide BUN Creatinine Glucose POC Glucose 144 H 115 H 125 H Lactic Acid Calcium Magnesium Iron TIBC Ferritin AST ALT Lactate Dehydrogenase Troponin T C-Reactive Protein Total Protein Albumin Prealbumin Cholesterol LDL Cholesterol Direct HDL Cholesterol Urine WBC (Auto) Vancomycin Trough Coronavirus (PCR) Crossmatch 08/20/19 08/20/19 08/21/19 Unknown Unknown 11:56 WBC 18.7 H RBC 2.70 L Hgb 7.6 L Hct 23.1 L MCV MCH MCHC RDW 18.9 H Plt Count 690 H Lymph % (Auto) [place] % (Auto) Lymph # [place] # Baso # Seg Neutrophils % Seg Neuts % (Manual) Lymphocytes % (Manual) Monocytes % (Manual) Basophils % (Manual) Nucleated RBC % Seg Neutrophils # Seg Neutrophils # Man Lymphocytes # (Manual) Monocytes # (Manual) Eosinophils # (Manual) Basophils # (Manual) PT INR D-Dimer ABG pH ABG pO2 ABG HCO3 ABG O2 Saturation ABG Base Excess ABG Hemoglobin Oxyhemoglobin Sodium 134 L Potassium Chloride 97.9 L Carbon Dioxide BUN Creatinine 0.3 L Glucose 115 H POC Glucose 116 H Lactic Acid Calcium 8.2 L Magnesium Iron TIBC Ferritin AST ALT Lactate Dehydrogenase Troponin T C-Reactive Protein Total Protein Albumin Prealbumin Cholesterol LDL Cholesterol Direct HDL Cholesterol Urine WBC (Auto) Vancomycin Trough Coronavirus (PCR) Crossmatch 08/21/19 08/22/19 08/22/19 18:14 00:31 05:53 WBC RBC Hgb Hct MCV MCH MCHC RDW Plt Count Lymph % (Auto) [place] % (Auto) Lymph # [place] # Baso # Seg Neutrophils % Seg Neuts % (Manual) Lymphocytes % (Manual) Monocytes % (Manual) Basophils % (Manual) Nucleated RBC % Seg Neutrophils # Seg Neutrophils # Man Lymphocytes # (Manual) Monocytes # (Manual) Eosinophils # (Manual) Basophils # (Manual) PT INR D-Dimer ABG pH ABG pO2 ABG HCO3 ABG O2 Saturation ABG Base Excess ABG Hemoglobin Oxyhemoglobin Sodium Potassium Chloride Carbon Dioxide BUN Creatinine Glucose POC Glucose 113 H 106 H 109 H Lactic Acid Calcium Magnesium Iron TIBC Ferritin AST ALT Lactate Dehydrogenase Troponin T C-Reactive Protein Total Protein Albumin Prealbumin Cholesterol LDL Cholesterol Direct HDL Cholesterol Urine WBC (Auto) Vancomycin Trough Coronavirus (PCR) Crossmatch 08/22/19 08/23/19 08/23/19 18:35 00:18 06:00 WBC 12.3 H RBC 2.92 L Hgb 8.0 L Hct 24.6 L MCV MCH MCHC RDW 18.5 H Plt Count 661 H Lymph % (Auto) 11.7 L [place] % (Auto) 9.2 H Lymph # [place] # 1.1 H Baso # Seg Neutrophils % 75.6 H Seg Neuts % (Manual) Lymphocytes % (Manual) Monocytes % (Manual) Basophils % (Manual) Nucleated RBC % Seg Neutrophils # 9.3 H Seg Neutrophils # Man Lymphocytes # (Manual) Monocytes # (Manual) Eosinophils # (Manual) Basophils # (Manual) PT INR D-Dimer ABG pH ABG pO2 ABG HCO3 ABG O2 Saturation ABG Base Excess ABG Hemoglobin Oxyhemoglobin Sodium Potassium Chloride Carbon Dioxide BUN Creatinine Glucose POC Glucose 130 H 124 H Lactic Acid Calcium Magnesium Iron TIBC Ferritin AST ALT Lactate Dehydrogenase Troponin T C-Reactive Protein Total Protein Albumin Prealbumin Cholesterol LDL Cholesterol Direct HDL Cholesterol Urine WBC (Auto) Vancomycin Trough Coronavirus (PCR) Crossmatch 08/23/19 08/23/19 08/24/19 06:09 17:46 00:04 WBC RBC Hgb Hct MCV MCH MCHC RDW Plt Count Lymph % (Auto) [place] % (Auto) Lymph # [place] # Baso # Seg Neutrophils % Seg Neuts % (Manual) Lymphocytes % (Manual) Monocytes % (Manual) Basophils % (Manual) Nucleated RBC % Seg Neutrophils # Seg Neutrophils # Man Lymphocytes # (Manual) Monocytes # (Manual) Eosinophils # (Manual) Basophils # (Manual) PT INR D-Dimer ABG pH ABG pO2 ABG HCO3 ABG O2 Saturation ABG Base Excess ABG Hemoglobin Oxyhemoglobin Sodium Potassium Chloride Carbon Dioxide BUN Creatinine Glucose POC Glucose 117 H 125 H 113 H Lactic Acid Calcium Magnesium Iron TIBC Ferritin AST ALT Lactate Dehydrogenase Troponin T C-Reactive Protein Total Protein Albumin Prealbumin Cholesterol LDL Cholesterol Direct HDL Cholesterol Urine WBC (Auto) Vancomycin Trough Coronavirus (PCR) Crossmatch 08/24/19 08/24/19 05:34 12:28 WBC RBC Hgb Hct MCV MCH MCHC RDW Plt Count Lymph % (Auto) [place] % (Auto) Lymph # [place] # Baso # Seg Neutrophils % Seg Neuts % (Manual) Lymphocytes % (Manual) Monocytes % (Manual) Basophils % (Manual) Nucleated RBC % Seg Neutrophils # Seg Neutrophils # Man Lymphocytes # (Manual) Monocytes # (Manual) Eosinophils # (Manual) Basophils # (Manual) PT INR D-Dimer ABG pH ABG pO2 ABG HCO3 ABG O2 Saturation ABG Base Excess ABG Hemoglobin Oxyhemoglobin Sodium Potassium Chloride Carbon Dioxide BUN Creatinine Glucose POC Glucose 128 H 127 H Lactic Acid Calcium Magnesium Iron TIBC Ferritin AST ALT Lactate Dehydrogenase Troponin T C-Reactive Protein Total Protein Albumin Prealbumin Cholesterol LDL Cholesterol Direct HDL Cholesterol Urine WBC (Auto) Vancomycin Trough Coronavirus (PCR) Crossmatch Allied health notes reviewed: nursing
[2019-08-24] MEDS: oxyCODONE /ACETAMINOPHEN 5-325MG TAB PO PRN (15:17)
--- NOTE | 2019-08-24 21:51 | Progress Note ---
Assessment and Plan S/p Cardiopulmonary arrest with ROSC Severe Sepsis with septic shock. Acute hypoxemic respiratory failure on MVS COVID-19 positive with elevated markers Bilateral pneumonia Elevated LFTs. Oropharyngeal dysphagia s/p PEG Acute kidney injury Decubitus ulcers-unstageable Moderate protein calorie malnutriton [id number] metabolic acidosis Leukocytosis Thrombocytosis-worse Microcytic anemia Continue with PSV as tolerated, full support at night Will continue to assess on a daily basis suitability for liberation from MVS while awaiting COVID negative testing. Repeat COVID testing negative - reconsult surgery for trach and PEG placement Continue with NGT feeding with aspiration precautions Complete course of antibiotics per ID- currently on Levofloxacin Supportive transfusions to keep HgB >7g/dL Continue all care as documented -Continue to coordinate sedation interruption( RN) and SBT( RT) today to optimize chances of success with weaning trial -ABG, CXR prn - continue airborne, droplet and contact isolation for COVID-19 - continue wound care per WCT - sedation prn for target RASS 0 to -1 - continue to wean supplemental oxygen for target O2 sat's > 90% - Daily SAT's and SBT assessment as tolerated - VAP bundle addressed - continue lung protective strategies - continue bronchodilators with pulmonary hygiene per RT - wean per pulmonary driven protocols otherwise - accuchecks with glycemic control per SSI (While critically ill target blood glucose of 140-180 mg/dL; avoid hypoglycemia) - continue to avoid benzodiazepines, reduce the possibility of delirium - prn analgesia per CPOT score - Maintenance of sleep-wake cycle, avoid delirium - continue enteral nutritional support at goal rate as tolerated - VTE prophylaxis-Enoxaparin -Stress ulcer prophylaxis- Famotidine - PT/OT/ROM exercises - continue mobility protocol, off loading and skin assessment for pressure ulcer prevention - Monitor hemodynamics closely -Wright catheter in this critically ill patient with unstageable sacral decubitus ulcer - continue other care per attending / other consultants - discharge planning ongoing concurrently .... Re-evaluate in am & prn CONDITION: CRITICAL PROGNOSIS: GUARDED CODE STATUS: DNAR Called his family to discuss goals of care, wants us to continue to treat aggressively at this time. The high probability of a clinically significant, sudden or life-threatening deterioration of the [respiratory ,cardiovascular, neurology] system(s) required my full and direct attention, intervention and personal management. The aggregate critical care time was [31] minutes without overlap. Time includes spent on; [x] Data Review and interpretation [x] Patient assessment and monitoring of vital signs [x] Documentation [x] Medication orders and management Subjective Date of service: 08/22/19 Principal diagnosis: Bilateral pneumonia, severe sepsis with septic shock, encephalopathy Interval history: The patient is a 69-year-old male with CVA, hypertension, dementia, schizophre stefano, alcohol use disorder was admitted to the emergency room after being brought in by EMS with progressive shortness of breath and unresponsiveness. He was noted to have agonal breathing and a faint pulse requiring CPR. Patient was intubated and brought to the hospital. It seems, patient was on home hospice. Currently, remains critically ill, intubated, on mechanical ventilation. His COVID test resulted positive. LATE ENTRY FOR 08/22/2019 Patient is seen today for: s/p cardiopulmonary arrest with ROSC; Ac hypoxemic Resp failure on MVS; Severe sepsis with Shock; Bilateral Pneumonia; POSITIVE coronavirus-19 infection. Seen and examined at bedside; 24hour events reviewed; nursing and respiratory care staff consulted; no adverse overnight events reported to me; resting in bed.No fevers; Remains COVID positive, sample fro repeat test collected this morning On MVS , tolerating daily PSV trials at this time; on fentanyl at 1mcg, off va sopressors Tolerating tube feedings, Mental status changes persist, will spontaneously open eyes COVID negative Objective Vital Signs - 12hr 08/24/19 08/24/19 08/24/19 09:55 10:00 11:00 Temperature Pulse Rate 128 H 128 H 131 H Pulse Rate [ From Monitor] Pulse Rate [ Left Dorsalis Pedis] Pulse Rate [ Left Radial] Pulse Rate [ None] Pulse Rate [ Right Dorsalis Pedis] Pulse Rate [ Right Radial] Respiratory 29 H 16 17 Rate Blood Pressure 118/65 124/74 135/84 O2 Sat by Pulse 99 99 99 Oximetry 08/24/19 08/24/19 08/24/19 11:29 12:00 12:36 Temperature 98.4 F Pulse Rate 128 H 116 H 130 H Pulse Rate [ 130 H From Monitor] Pulse Rate [ 130 H Left Dorsalis Pedis] Pulse Rate [ 130 H Left Radial] Pulse Rate [ None] Pulse Rate [ 130 H Right Dorsalis Pedis] Pulse Rate [ 130 H Right Radial] Respiratory 28 H 32 H Rate Blood Pressure 124/70 117/66 119/65 O2 Sat by Pulse 99 99 Oximetry 08/24/19 08/24/19 08/24/19 13:00 14:00 15:00 Temperature Pulse Rate 114 H 114 H 116 H Pulse Rate [ From Monitor] Pulse Rate [ Left Dorsalis Pedis] Pulse Rate [ Left Radial] Pulse Rate [ None] Pulse Rate [ Right Dorsalis Pedis] Pulse Rate [ Right Radial] Respiratory 16 37 H 22 Rate Blood Pressure 130/78 125/78 104/69 O2 Sat by Pulse 99 99 99 Oximetry 08/24/19 08/24/19 08/24/19 15:31 16:00 17:00 Temperature 98.2 F Pulse Rate 117 H 116 H 109 H Pulse Rate [ 116 H From Monitor] Pulse Rate [ 116 H Left Dorsalis Pedis] Pulse Rate [ 116 H Left Radial] Pulse Rate [ 144 H None] Pulse Rate [ 116 H Right Dorsalis Pedis] Pulse Rate [ 116 H Right Radial] Respiratory 34 H 44 H 27 H Rate Blood Pressure 131/74 119/74 92/53 O2 Sat by Pulse 100 100 100 Oximetry 08/24/19 08/24/19 08/24/19 18:00 19:04 20:00 Temperature 98.5 F Pulse Rate 103 H 96 H Pulse Rate [ 99 H From Monitor] Pulse Rate [ Left Dorsalis Pedis] Pulse Rate [ Left Radial] Pulse Rate [ None] Pulse Rate [ Right Dorsalis Pedis] Pulse Rate [ Right Radial] Respiratory 10 L 18 Rate Blood Pressure 91/59 109/70 95/49 O2 Sat by Pulse 100 100 100 Oximetry 08/24/19 20:34 Temperature Pulse Rate 89 Pulse Rate [ From Monitor] Pulse Rate [ Left Dorsalis Pedis] Pulse Rate [ Left Radial] Pulse Rate [ None] Pulse Rate [ Right Dorsalis Pedis] Pulse Rate [ Right Radial] Respiratory Rate Blood Pressure 105/62 O2 Sat by Pulse 100 Oximetry Constitutional: appears uncomfortable, other (eelderly and chronically ill looking AAM, normocep[krystina;ic with mildly increased respiratory effort at rest) Eyes: non-icteric ENT: oropharynx moist, other (ETT 24 cm RUTH) Neck: supple, no lymphadenopathy, no JVD Effort: mildly labored Ascultation: Bilateral: diminished breath sounds, rhonchi Percussion: Bilateral: not dull Cardiovascular: regular rate and rhythm Gastrointestinal: normoactive bowel sounds, soft, non-tender, non-distended, other (+ PEG tube with mild TF leakage) Integumentary: decubitus ulcer (sacral) Extremities: no cyanosis, no edema, pink and warm, pulses normal Neurologic: pupils equal and round, unable to assess Psychiatric: other (Unable to assess re: AMS) CBC and BMP: 08/23/19 06:00 08/20/19 Unknown ABG, PT/INR, D-dimer: ABG ABG pH 7.405 pH Units (7.350-7.450) 08/17/19 20:20 ABG pCO2 45.3 mm Hg 08/17/19 20:20 ABG pO2 84.2 mm Hg (80.0-90.0) 08/17/19 20: ABG O2 Saturation 96.9 % (95.0-99.0) 08/17/19 20:20 PT/INR, D-dimer PT 16.0 Sec. (12.2-14.9) H 07/03/19 22:20 INR 1.26 (0.87-1.13) H 07/03/19 22:20 D-Dimer 1808.06 ng/mlDDU (0-234) H 08/07/19 10:24 Abnormal lab findings: Abnormal Labs 07/03/19 07/03/19 07/03/19 19:57 21:10 21:13 WBC RBC Hgb Hct MCV MCH MCHC RDW Plt Count Lymph % (Auto) Cross % (Auto) Lymph # Cross # Baso # Seg Neutrophils % Seg Neuts % (Manual) Lymphocytes % (Manual) Monocytes % (Manual) Basophils % (Manual) Nucleated RBC % Seg Neutrophils # Seg Neutrophils # Man Lymphocytes # (Manual) Monocytes # (Manual) Eosinophils # (Manual) Basophils # (Manual) PT INR D-Dimer ABG pH 7.238 L ABG pO2 210.8 H ABG HCO3 15.4 L ABG O2 Saturation 99.2 H ABG Base Excess -11.1 L ABG Hemoglobin 8.0 L Oxyhemoglobin Sodium 124 L Potassium Chloride 92.9 L Carbon Dioxide 10 L BUN 23 H Creatinine 0.5 L Glucose 118 H POC Glucose Lactic Acid Calcium 7.0 L Magnesium Iron TIBC Ferritin AST 70 H ALT 88 H Lactate Dehydrogenase Troponin T 0.032 H C-Reactive Protein Total Protein 5.0 L Albumin 1.8 L Prealbumin Cholesterol 47 L LDL Cholesterol Direct 25 L HDL Cholesterol 20 L Urine WBC (Auto) 12.0 H Vancomycin Trough Coronavirus (PCR) Crossmatch 07/03/19 07/03/19 07/03/19 22:20 22:20 22:20 WBC 30.5 H RBC 2.96 L Hgb 7.7 L Hct 23.9 L MCV 81 L MCH 26 L MCHC RDW 18.6 H Plt Count 459 H Lymph % (Auto) Cross % (Auto) Lymph # Cross # Baso # Seg Neutrophils % Seg Neuts % (Manual) 93.0 H Lymphocytes % (Manual) 0.5 L Monocytes % (Manual) Basophils % (Manual) Nucleated RBC % Seg Neutrophils # Seg Neutrophils # Man 28.4 H Lymphocytes # (Manual) 0.2 L Monocytes # (Manual) Eosinophils # (Manual) Basophils # (Manual) PT 16.0 H INR 1.26 H D-Dimer ABG pH ABG pO2 ABG HCO3 ABG O2 Saturation ABG Base Excess ABG Hemoglobin Oxyhemoglobin Sodium Potassium Chloride Carbon Dioxide BUN Creatinine Glucose POC Glucose Lactic Acid 6.90 H* Calcium Magnesium Iron TIBC Ferritin AST ALT Lactate Dehydrogenase Troponin T C-Reactive Protein Total Protein Albumin Prealbumin Cholesterol LDL Cholesterol Direct HDL Cholesterol Urine WBC (Auto) Vancomycin Trough Coronavirus (PCR) Crossmatch 07/03/19 07/04/19 07/04/19 23:58 05:15 07:05 WBC 17.1 H RBC 3.22 L Hgb 8.3 L Hct 25.4 L MCV 79 L MCH 26 L MCHC RDW 18.6 H Plt Count Lymph % (Auto) Cross % (Auto) Lymph # Cross # Baso # Seg Neutrophils % Seg Neuts % (Manual) 74.0 H Lymphocytes % (Manual) 0 L Monocytes % (Manual) Basophils % (Manual) Nucleated RBC % Seg Neutrophils # Seg Neutrophils # Man 12.7 H Lymphocytes # (Manual) 0.0 L Monocytes # (Manual) Eosinophils # (Manual) Basophils # (Manual) PT INR D-Dimer ABG pH 7.310 L ABG pO2 73.2 L ABG HCO3 17.8 L ABG O2 Saturation 93.8 L ABG Base Excess -7.7 L ABG Hemoglobin 9.6 L Oxyhemoglobin 92.3 L Sodium Potassium Chloride Carbon Dioxide BUN Creatinine Glucose POC Glucose Lactic Acid 7.10 H* Calcium Magnesium Iron TIBC Ferritin AST ALT Lactate Dehydrogenase Troponin T C-Reactive Protein Total Protein Albumin Prealbumin Cholesterol LDL Cholesterol Direct HDL Cholesterol Urine WBC (Auto) Vancomycin Trough Coronavirus (PCR) Crossmatch 07/04/19 07/04/19 07/04/19 07:05 07:05 07:05 WBC RBC Hgb Hct MCV MCH MCHC RDW Plt Count Lymph % (Auto) Cross % (Auto) Lymph # Cross # Baso # Seg Neutrophils % Seg Neuts % (Manual) Lymphocytes % (Manual) Monocytes % (Manual) Basophils % (Manual) Nucleated RBC % Seg Neutrophils # Seg Neutrophils # Man Lymphocytes # (Manual) Monocytes # (Manual) Eosinophils # (Manual) Basophils # (Manual) PT INR D-Dimer ABG pH ABG pO2 ABG HCO3 ABG O2 Saturation ABG Base Excess ABG Hemoglobin Oxyhemoglobin Sodium 120 L Potassium 5.1 H Chloride 90.0 L Carbon Dioxide 14 L BUN 26 H Creatinine 0.5 L Glucose POC Glucose Lactic Acid 3.30 H* Calcium 8.0 L Magnesium Iron 9 L TIBC 97 L Ferritin AST 73 H ALT 91 H Lactate Dehydrogenase Troponin T C-Reactive Protein Total Protein 5.5 L Albumin 2.0 L Prealbumin Cholesterol LDL Cholesterol Direct HDL Cholesterol Urine WBC (Auto) Vancomycin Trough Coronavirus (PCR) Crossmatch 07/04/19 07/04/19 07/04/19 09:39 09:39 09:39 WBC RBC Hgb Hct MCV MCH MCHC RDW Plt Count Lymph % (Auto) Cross % (Auto) Lymph # Cross # Baso # Seg Neutrophils % Seg Neuts % (Manual) Lymphocytes % (Manual) Monocytes % (Manual) Basophils % (Manual) Nucleated RBC % Seg Neutrophils # Seg Neutrophils # Man Lymphocytes # (Manual) Monocytes # (Manual) Eosinophils # (Manual) Basophils # (Manual) PT INR D-Dimer 1419.14 H ABG pH ABG pO2 ABG HCO3 ABG O2 Saturation ABG Base Excess ABG Hemoglobin Oxyhemoglobin Sodium Potassium Chloride Carbon Dioxide BUN Creatinine Glucose POC Glucose Lactic Acid Calcium Magnesium Iron TIBC Ferritin 1719.0 H AST ALT Lactate Dehydrogenase 234 H Troponin T C-Reactive Protein 15.50 H Total Protein Albumin Prealbumin Cholesterol LDL Cholesterol Direct HDL Cholesterol Urine WBC (Auto) Vancomycin Trough Coronavirus (PCR) Crossmatch 07/04/19 07/04/19 07/04/19 10:09 18:08 18:28 WBC RBC Hgb Hct MCV MCH MCHC RDW Plt Count Lymph % (Auto) Cross % (Auto) Lymph # Cross # Baso # Seg Neutrophils % Seg Neuts % (Manual) Lymphocytes % (Manual) Monocytes % (Manual) Basophils % (Manual) Nucleated RBC % Seg Neutrophils # Seg Neutrophils # Man Lymphocytes # (Manual) Monocytes # (Manual) Eosinophils # (Manual) Basophils # (Manual) PT INR D-Dimer ABG pH ABG pO2 ABG HCO3 ABG O2 Saturation ABG Base Excess ABG Hemoglobin Oxyhemoglobin Sodium 117 L* Potassium 5.6 H Chloride 90.3 L Carbon Dioxide 16 L BUN 28 H Creatinine 0.5 L Glucose 58 L POC Glucose 65 L Lactic Acid Calcium 8.2 L Magnesium Iron TIBC Ferritin AST ALT Lactate Dehydrogenase Troponin T C-Reactive Protein Total Protein Albumin Prealbumin Cholesterol LDL Cholesterol Direct HDL Cholesterol Urine WBC (Auto) Vancomycin Trough Coronavirus (PCR) Positive A Crossmatch 07/04/19 07/04/19 07/04/19 23:45 Unknown Unknown WBC RBC Hgb Hct MCV MCH MCHC RDW Plt Count Lymph % (Auto) Cross % (Auto) Lymph # Cross # Baso # Seg Neutrophils % Seg Neuts % (Manual) Lymphocytes % (Manual) Monocytes % (Manual) Basophils % (Manual) Nucleated RBC % Seg Neutrophils # Seg Neutrophils # Man Lymphocytes # (Manual) Monocytes # (Manual) Eosinophils # (Manual) Basophils # (Manual) PT INR D-Dimer 759.77 H ABG pH ABG pO2 ABG HCO3 ABG O2 Saturation ABG Base Excess ABG Hemoglobin Oxyhemoglobin Sodium 122 L Potassium Chloride 93.0 L Carbon Dioxide 19 L BUN 27 H Creatinine 0.5 L Glucose POC Glucose Lactic Acid Calcium 8.3 L Magnesium Iron TIBC Ferritin 1301.0 H AST ALT Lactate Dehydrogenase Troponin T C-Reactive Protein Total Protein Albumin Prealbumin Cholesterol LDL Cholesterol Direct HDL Cholesterol Urine WBC (Auto) Vancomycin Trough Coronavirus (PCR) Crossmatch 07/04/19 07/05/19 07/05/19 Unknown 03:20 04:00 WBC RBC Hgb Hct MCV MCH MCHC RDW Plt Count Lymph % (Auto) Cross % (Auto) Lymph # Cross # Baso # Seg Neutrophils % Seg Neuts % (Manual) Lymphocytes % (Manual) Monocytes % (Manual) Basophils % (Manual) Nucleated RBC % Seg Neutrophils # Seg Neutrophils # Man Lymphocytes # (Manual) Monocytes # (Manual) Eosinophils # (Manual) Basophils # (Manual) PT INR D-Dimer ABG pH ABG pO2 60.6 L ABG HCO3 ABG O2 Saturation 93.5 L ABG Base Excess -2.4 L ABG Hemoglobin 6.9 L Oxyhemoglobin 92.0 L Sodium 125 L Potassium Chloride 92.6 L Carbon Dioxide 19 L BUN 24 H Creatinine 0.6 L Glucose POC Glucose Lactic Acid Calcium 8.2 L Magnesium 1.40 L Iron TIBC Ferritin AST ALT Lactate Dehydrogenase 242 H Troponin T C-Reactive Protein 16.70 H Total Protein Albumin Prealbumin Cholesterol LDL Cholesterol Direct HDL Cholesterol Urine WBC (Auto) Vancomycin Trough Coronavirus (PCR) Crossmatch 07/05/19 07/05/19 07/05/19 10:11 16:15 17:54 WBC 46.4 H* RBC 2.77 L Hgb 7.2 L Hct 21.9 L MCV 79 L MCH 26 L MCHC RDW 19.0 H Plt Count Lymph % (Auto) Cross % (Auto) Lymph # Cross # Baso # Seg Neutrophils % Seg Neuts % (Manual) 82.0 H Lymphocytes % (Manual) 1.0 L Monocytes % (Manual) Basophils % (Manual) Nucleated RBC % Seg Neutrophils # Seg Neutrophils # Man 38.0 H Lymphocytes # (Manual) 0.5 L Monocytes # (Manual) Eosinophils # (Manual) Basophils # (Manual) PT INR D-Dimer ABG pH ABG pO2 ABG HCO3 ABG O2 Saturation ABG Base Excess ABG Hemoglobin Oxyhemoglobin Sodium Potassium Chloride Carbon Dioxide BUN Creatinine Glucose POC Glucose 69 L Lactic Acid Calcium Magnesium Iron TIBC Ferritin AST ALT Lactate Dehydrogenase Troponin T C-Reactive Protein Total Protein Albumin Prealbumin Cholesterol LDL Cholesterol Direct HDL Cholesterol Urine WBC (Auto) Vancomycin Trough 23.2 H Coronavirus (PCR) Crossmatch 07/05/19 07/06/19 07/06/19 19:58 00:27 00:27 WBC RBC Hgb Hct MCV MCH MCHC RDW Plt Count Lymph % (Auto) Cross % (Auto) Lymph # Cross # Baso # Seg Neutrophils % Seg Neuts % (Manual) Lymphocytes % (Manual) Monocytes % (Manual) Basophils % (Manual) Nucleated RBC % Seg Neutrophils # Seg Neutrophils # Man Lymphocytes # (Manual) Monocytes # (Manual) Eosinophils # (Manual) Basophils # (Manual) PT INR D-Dimer 1333.22 H ABG pH ABG pO2 ABG HCO3 ABG O2 Saturation ABG Base Excess ABG Hemoglobin Oxyhemoglobin Sodium 127 L Potassium Chloride Carbon Dioxide BUN Creatinine Glucose POC Glucose Lactic Acid Calcium Magnesium Iron TIBC Ferritin 977.1 H AST ALT Lactate Dehydrogenase Troponin T C-Reactive Protein Total Protein Albumin Prealbumin Cholesterol LDL Cholesterol Direct HDL Cholesterol Urine WBC (Auto) Vancomycin Trough Coronavirus (PCR) Crossmatch 07/06/19 07/06/19 07/06/19 00:27 02:00 02:56 WBC RBC Hgb Hct MCV MCH MCHC RDW Plt Count Lymph % (Auto) Cross % (Auto) Lymph # Cross # Baso # Seg Neutrophils % Seg Neuts % (Manual) Lymphocytes % (Manual) Monocytes % (Manual) Basophils % (Manual) Nucleated RBC % Seg Neutrophils # Seg Neutrophils # Man Lymphocytes # (Manual) Monocytes # (Manual) Eosinophils # (Manual) Basophils # (Manual) PT INR D-Dimer ABG pH ABG pO2 70.3 L ABG HCO3 ABG O2 Saturation 94.8 L ABG Base Excess ABG Hemoglobin 8.0 L Oxyhemoglobin 93.2 L Sodium Potassium Chloride Carbon Dioxide BUN Creatinine Glucose POC Glucose 117 H Lactic Acid Calcium Magnesium Iron TIBC Ferritin AST ALT Lactate Dehydrogenase 236 H Troponin T C-Reactive Protein 22.90 H Total Protein Albumin Prealbumin Cholesterol LDL Cholesterol Direct HDL Cholesterol Urine WBC (Auto) Vancomycin Trough Coronavirus (PCR) Crossmatch 07/06/19 07/06/19 07/06/19 03:49 03:49 07:40 WBC 38.8 H RBC 2.51 L Hgb 6.7 L Hct 19.9 L* MCV 79 L MCH 27 L MCHC RDW 19.2 H Plt Count Lymph % (Auto) Cross % (Auto) Lymph # Cross # Baso # Seg Neutrophils % Seg Neuts % (Manual) 90.5 H Lymphocytes % (Manual) 1.0 L Monocytes % (Manual) Basophils % (Manual) Nucleated RBC % Seg Neutrophils # Seg Neutrophils # Man 35.1 H Lymphocytes # (Manual) 0.4 L Monocytes # (Manual) Eosinophils # (Manual) Basophils # (Manual) PT INR D-Dimer ABG pH ABG pO2 ABG HCO3 ABG O2 Saturation ABG Base Excess ABG Hemoglobin Oxyhemoglobin Sodium 131 L Potassium Chloride 96.9 L Carbon Dioxide 18 L BUN 23 H Creatinine 0.5 L Glucose POC Glucose Lactic Acid Calcium 8.0 L Magnesium Iron TIBC Ferritin AST ALT Lactate Dehydrogenase Troponin T C-Reactive Protein Total Protein Albumin Prealbumin Cholesterol LDL Cholesterol Direct HDL Cholesterol Urine WBC (Auto) Vancomycin Trough Coronavirus (PCR) Crossmatch See Detail 07/06/19 07/06/19 07/06/19 12:38 14:39 20:00 WBC RBC Hgb Hct MCV MCH MCHC RDW Plt Count Lymph % (Auto) Cross % (Auto) Lymph # Cross # Baso # Seg Neutrophils % Seg Neuts % (Manual) Lymphocytes % (Manual) Monocytes % (Manual) Basophils % (Manual) Nucleated RBC % Seg Neutrophils # Seg Neutrophils # Man Lymphocytes # (Manual) Monocytes # (Manual) Eosinophils # (Manual) Basophils # (Manual) PT INR D-Dimer ABG pH ABG pO2 ABG HCO3 ABG O2 Saturation ABG Base Excess ABG Hemoglobin Oxyhemoglobin Sodium Potassium Chloride Carbon Dioxide BUN Creatinine Glucose POC Glucose 112 H 111 H 140 H Lactic Acid Calcium Magnesium Iron TIBC Ferritin AST ALT Lactate Dehydrogenase Troponin T C-Reactive Protein Total Protein Albumin Prealbumin Cholesterol LDL Cholesterol Direct HDL Cholesterol Urine WBC (Auto) Vancomycin Trough Coronavirus (PCR) Crossmatch 07/06/19 07/06/19 07/07/19 22:43 22:56 02:20 WBC RBC Hgb 7.9 L Hct 23.1 L MCV MCH MCHC RDW Plt Count Lymph % (Auto) Cross % (Auto) Lymph # Cross # Baso # Seg Neutrophils % Seg Neuts % (Manual) Lymphocytes % (Manual) Monocytes % (Manual) Basophils % (Manual) Nucleated RBC % Seg Neutrophils # Seg Neutrophils # Man Lymphocytes # (Manual) Monocytes # (Manual) Eosinophils # (Manual) Basophils # (Manual) PT INR D-Dimer ABG pH ABG pO2 ABG HCO3 ABG O2 Saturation ABG Base Excess ABG Hemoglobin Oxyhemoglobin Sodium Potassium Chloride Carbon Dioxide BUN Creatinine Glucose POC Glucose 122 H 149 H Lactic Acid Calcium Magnesium Iron TIBC Ferritin AST ALT Lactate Dehydrogenase Troponin T C-Reactive Protein Total Protein Albumin Prealbumin Cholesterol LDL Cholesterol Direct HDL Cholesterol Urine WBC (Auto) Vancomycin Trough Coronavirus (PCR) Crossmatch 07/07/19 07/07/19 07/07/19 04:35 05:27 05:34 WBC 23.1 H RBC 3.00 L Hgb 8.1 L Hct 24.2 L MCV 81 L MCH 27 L MCHC RDW 20.6 H Plt Count Lymph % (Auto) Cross % (Auto) Lymph # Cross # Baso # Seg Neutrophils % Seg Neuts % (Manual) 90.0 H Lymphocytes % (Manual) 2.0 L Monocytes % (Manual) Basophils % (Manual) Nucleated RBC % Seg Neutrophils # Seg Neutrophils # Man 20.8 H Lymphocytes # (Manual) 0.5 L Monocytes # (Manual) Eosinophils # (Manual) Basophils # (Manual) PT INR D-Dimer ABG pH ABG pO2 65.8 L ABG HCO3 ABG O2 Saturation 92.2 L ABG Base Excess ABG Hemoglobin 8.3 L Oxyhemoglobin 90.6 L Sodium Potassium Chloride Carbon Dioxide BUN Creatinine Glucose POC Glucose 132 H Lactic Acid Calcium Magnesium Iron TIBC Ferritin AST ALT Lactate Dehydrogenase Troponin T C-Reactive Protein Total Protein Albumin Prealbumin Cholesterol LDL Cholesterol Direct HDL Cholesterol Urine WBC (Auto) Vancomycin Trough Coronavirus (PCR) Crossmatch 07/07/19 07/07/19 07/07/19 05:34 11:50 15:58 WBC RBC Hgb 8.1 L Hct 24.2 L MCV MCH MCHC RDW Plt Count Lymph % (Auto) Cross % (Auto) Lymph # Cross # Baso # Seg Neutrophils % Seg Neuts % (Manual) Lymphocytes % (Manual) Monocytes % (Manual) Basophils % (Manual) Nucleated RBC % Seg Neutrophils # Seg Neutrophils # Man Lymphocytes # (Manual) Monocytes # (Manual) Eosinophils # (Manual) Basophils # (Manual) PT INR D-Dimer ABG pH ABG pO2 ABG HCO3 ABG O2 Saturation ABG Base Excess ABG Hemoglobin Oxyhemoglobin Sodium 135 L Potassium 3.3 L Chloride Carbon Dioxide 20 L BUN 27 H Creatinine 0.6 L Glucose 121 H POC Glucose 123 H Lactic Acid Calcium 8.0 L Magnesium Iron TIBC Ferritin AST ALT Lactate Dehydrogenase Troponin T C-Reactive Protein Total Protein Albumin Prealbumin Cholesterol LDL Cholesterol Direct HDL Cholesterol Urine WBC (Auto) Vancomycin Trough Coronavirus (PCR) Crossmatch 07/07/19 07/07/19 07/07/19 17:42 22:00 23:53 WBC RBC Hgb 8.0 L Hct 23.4 L MCV MCH MCHC RDW Plt Count Lymph % (Auto) Cross % (Auto) Lymph # Cross # Baso # Seg Neutrophils % Seg Neuts % (Manual) Lymphocytes % (Manual) Monocytes % (Manual) Basophils % (Manual) Nucleated RBC % Seg Neutrophils # Seg Neutrophils # Man Lymphocytes # (Manual) Monocytes # (Manual) Eosinophils # (Manual) Basophils # (Manual) PT INR D-Dimer ABG pH ABG pO2 ABG HCO3 ABG O2 Saturation ABG Base Excess ABG Hemoglobin Oxyhemoglobin Sodium Potassium Chloride Carbon Dioxide BUN Creatinine Glucose POC Glucose 107 H 117 H Lactic Acid Calcium Magnesium Iron TIBC Ferritin AST ALT Lactate Dehydrogenase Troponin T C-Reactive Protein Total Protein Albumin Prealbumin Cholesterol LDL Cholesterol Direct HDL Cholesterol Urine WBC (Auto) Vancomycin Trough Coronavirus (PCR) Crossmatch 07/08/19 07/08/19 07/08/19 00:45 00:45 00:45 WBC RBC Hgb Hct MCV MCH MCHC RDW Plt Count Lymph % (Auto) Cross % (Auto) Lymph # Cross # Baso # Seg Neutrophils % Seg Neuts % (Manual) Lymphocytes % (Manual) Monocytes % (Manual) Basophils % (Manual) Nucleated RBC % Seg Neutrophils # Seg Neutrophils # Man Lymphocytes # (Manual) Monocytes # (Manual) Eosinophils # (Manual) Basophils # (Manual) PT INR D-Dimer 1142.18 H ABG pH ABG pO2 ABG HCO3 ABG O2 Saturation ABG Base Excess ABG Hemoglobin Oxyhemoglobin Sodium Potassium Chloride Carbon Dioxide BUN Creatinine Glucose POC Glucose Lactic Acid Calcium Magnesium Iron TIBC Ferritin 839.0 H AST ALT Lactate Dehydrogenase 253 H Troponin T C-Reactive Protein 18.90 H Total Protein Albumin Prealbumin Cholesterol LDL Cholesterol Direct HDL Cholesterol Urine WBC (Auto) Vancomycin Trough Coronavirus (PCR) Crossmatch 07/08/19 07/08/19 07/08/19 04:30 05:11 12:02 WBC RBC Hgb Hct MCV MCH MCHC RDW Plt Count Lymph % (Auto) Cross % (Auto) Lymph # Cross # Baso # Seg Neutrophils % Seg Neuts % (Manual) Lymphocytes % (Manual) Monocytes % (Manual) Basophils % (Manual) Nucleated RBC % Seg Neutrophils # Seg Neutrophils # Man Lymphocytes # (Manual) Monocytes # (Manual) Eosinophils # (Manual) Basophils # (Manual) PT INR D-Dimer ABG pH ABG pO2 66.0 L ABG HCO3 ABG O2 Saturation 92.3 L ABG Base Excess ABG Hemoglobin 7.7 L Oxyhemoglobin 90.7 L Sodium Potassium Chloride Carbon Dioxide BUN Creatinine Glucose POC Glucose 108 H 153 H Lactic Acid Calcium Magnesium Iron TIBC Ferritin AST ALT Lactate Dehydrogenase Troponin T C-Reactive Protein Total Protein Albumin Prealbumin Cholesterol LDL Cholesterol Direct HDL Cholesterol Urine WBC (Auto) Vancomycin Trough Coronavirus (PCR) Crossmatch 07/08/19 07/08/19 07/08/19 16:15 18:22 23:35 WBC RBC Hgb Hct MCV MCH MCHC RDW Plt Count Lymph % (Auto) Cross % (Auto) Lymph # Cross # Baso # Seg Neutrophils % Seg Neuts % (Manual) Lymphocytes % (Manual) Monocytes % (Manual) Basophils % (Manual) Nucleated RBC % Seg Neutrophils # Seg Neutrophils # Man Lymphocytes # (Manual) Monocytes # (Manual) Eosinophils # (Manual) Basophils # (Manual) PT INR D-Dimer ABG pH ABG pO2 ABG HCO3 ABG O2 Saturation ABG Base Excess ABG Hemoglobin Oxyhemoglobin Sodium 134 L Potassium 3.3 L Chloride Carbon Dioxide 21 L BUN 27 H Creatinine 0.6 L Glucose 146 H POC Glucose 134 H 133 H Lactic Acid Calcium Magnesium Iron TIBC Ferritin AST ALT Lactate Dehydrogenase Troponin T C-Reactive Protein Total Protein Albumin Prealbumin Cholesterol LDL Cholesterol Direct HDL Cholesterol Urine WBC (Auto) Vancomycin Trough Coronavirus (PCR) Crossmatch 07/09/19 07/09/19 07/09/19 04:30 04:30 05:00 WBC 18.9 H RBC 2.77 L Hgb 7.4 L Hct 22.8 L MCV 82 L MCH 27 L MCHC RDW 20.9 H Plt Count 130 L Lymph % (Auto) Cross % (Auto) Lymph # Cross # Baso # Seg Neutrophils % Seg Neuts % (Manual) 84.0 H Lymphocytes % (Manual) 0 L Monocytes % (Manual) Basophils % (Manual) Nucleated RBC % Seg Neutrophils # Seg Neutrophils # Man 15.9 H Lymphocytes # (Manual) 0.0 L Monocytes # (Manual) Eosinophils # (Manual) Basophils # (Manual) PT INR D-Dimer ABG pH ABG pO2 ABG HCO3 ABG O2 Saturation ABG Base Excess ABG Hemoglobin Oxyhemoglobin Sodium Potassium 3.1 L Chloride Carbon Dioxide BUN 26 H Creatinine 0.5 L Glucose 125 H POC Glucose 155 H Lactic Acid Calcium Magnesium Iron TIBC Ferritin AST ALT Lactate Dehydrogenase Troponin T C-Reactive Protein Total Protein Albumin Prealbumin Cholesterol LDL Cholesterol Direct HDL Cholesterol Urine WBC (Auto) Vancomycin Trough Coronavirus (PCR) Crossmatch 07/09/19 07/09/19 07/09/19 05:55 12:22 17:50 WBC RBC Hgb Hct MCV MCH MCHC RDW Plt Count Lymph % (Auto) Cross % (Auto) Lymph # Cross # Baso # Seg Neutrophils % Seg Neuts % (Manual) Lymphocytes % (Manual) Monocytes % (Manual) Basophils % (Manual) Nucleated RBC % Seg Neutrophils # Seg Neutrophils # Man Lymphocytes # (Manual) Monocytes # (Manual) Eosinophils # (Manual) Basophils # (Manual) PT INR D-Dimer ABG pH ABG pO2 62.8 L ABG HCO3 ABG O2 Saturation ABG Base Excess ABG Hemoglobin 6.1 L Oxyhemoglobin 93.9 L Sodium Potassium Chloride Carbon Dioxide BUN Creatinine Glucose POC Glucose 115 H 133 H Lactic Acid Calcium Magnesium Iron TIBC Ferritin AST ALT Lactate Dehydrogenase Troponin T C-Reactive Protein Total Protein Albumin Prealbumin Cholesterol LDL Cholesterol Direct HDL Cholesterol Urine WBC (Auto) Vancomycin Trough Coronavirus (PCR) Crossmatch 07/10/19 07/10/19 07/10/19 00:38 04:00 04:00 WBC RBC Hgb Hct MCV MCH MCHC RDW Plt Count Lymph % (Auto) Cross % (Auto) Lymph # Cross # Baso # Seg Neutrophils % Seg Neuts % (Manual) Lymphocytes % (Manual) Monocytes % (Manual) Basophils % (Manual) Nucleated RBC % Seg Neutrophils # Seg Neutrophils # Man Lymphocytes # (Manual) Monocytes # (Manual) Eosinophils # (Manual) Basophils # (Manual) PT INR D-Dimer ABG pH ABG pO2 ABG HCO3 ABG O2 Saturation ABG Base Excess ABG Hemoglobin Oxyhemoglobin Sodium Potassium Chloride 107.9 H Carbon Dioxide BUN 26 H Creatinine 0.4 L Glucose 137 H POC Glucose 122 H Lactic Acid Calcium Magnesium 1.50 L Iron TIBC Ferritin AST ALT Lactate Dehydrogenase 277 H Troponin T C-Reactive Protein 15.10 H Total Protein Albumin Prealbumin Cholesterol LDL Cholesterol Direct HDL Cholesterol Urine WBC (Auto) Vancomycin Trough Coronavirus (PCR) Crossmatch 07/10/19 07/10/19 07/10/19 04:07 05:21 17:25 WBC RBC Hgb Hct MCV MCH MCHC RDW Plt Count Lymph % (Auto) Cross % (Auto) Lymph # Cross # Baso # Seg Neutrophils % Seg Neuts % (Manual) Lymphocytes % (Manual) Monocytes % (Manual) Basophils % (Manual) Nucleated RBC % Seg Neutrophils # Seg Neutrophils # Man Lymphocytes # (Manual) Monocytes # (Manual) Eosinophils # (Manual) Basophils # (Manual) PT INR D-Dimer ABG pH ABG pO2 65.6 L ABG HCO3 26.3 H ABG O2 Saturation ABG Base Excess ABG Hemoglobin 6.7 L Oxyhemoglobin Sodium Potassium Chloride Carbon Dioxide BUN Creatinine Glucose POC Glucose 144 H 113 H Lactic Acid Calcium Magnesium Iron TIBC Ferritin AST ALT Lactate Dehydrogenase Troponin T C-Reactive Protein Total Protein Albumin Prealbumin Cholesterol LDL Cholesterol Direct HDL Cholesterol Urine WBC (Auto) Vancomycin Trough Coronavirus (PCR) Crossmatch 07/11/19 07/11/19 07/11/19 00:07 05:14 05:25 WBC RBC Hgb Hct MCV MCH MCHC RDW Plt Count Lymph % (Auto) Cross % (Auto) Lymph # Cross # Baso # Seg Neutrophils % Seg Neuts % (Manual) Lymphocytes % (Manual) Monocytes % (Manual) Basophils % (Manual) Nucleated RBC % Seg Neutrophils # Seg Neutrophils # Man Lymphocytes # (Manual) Monocytes # (Manual) Eosinophils # (Manual) Basophils # (Manual) PT INR D-Dimer ABG pH ABG pO2 ABG HCO3 ABG O2 Saturation ABG Base Excess ABG Hemoglobin 5.8 L Oxyhemoglobin Sodium Potassium Chloride 108.0 H Carbon Dioxide BUN 26 H Creatinine 0.4 L Glucose 110 H POC Glucose 121 H Lactic Acid Calcium Magnesium Iron TIBC Ferritin AST ALT Lactate Dehydrogenase Troponin T C-Reactive Protein Total Protein Albumin Prealbumin Cholesterol LDL Cholesterol Direct HDL Cholesterol Urine WBC (Auto) Vancomycin Trough Coronavirus (PCR) Crossmatch 07/11/19 07/11/19 07/11/19 12:27 18:00 23:42 WBC RBC Hgb Hct MCV MCH MCHC RDW Plt Count Lymph % (Auto) Cross % (Auto) Lymph # Cross # Baso # Seg Neutrophils % Seg Neuts % (Manual) Lymphocytes % (Manual) Monocytes % (Manual) Basophils % (Manual) Nucleated RBC % Seg Neutrophils # Seg Neutrophils # Man Lymphocytes # (Manual) Monocytes # (Manual) Eosinophils # (Manual) Basophils # (Manual) PT INR D-Dimer ABG pH ABG pO2 ABG HCO3 ABG O2 Saturation ABG Base Excess ABG Hemoglobin Oxyhemoglobin Sodium Potassium Chloride Carbon Dioxide BUN Creatinine Glucose POC Glucose 158 H 141 H 142 H Lactic Acid Calcium Magnesium Iron TIBC Ferritin AST ALT Lactate Dehydrogenase Troponin T C-Reactive Protein Total Protein Albumin Prealbumin Cholesterol LDL Cholesterol Direct HDL Cholesterol Urine WBC (Auto) Vancomycin Trough Coronavirus (PCR) Crossmatch 07/12/19 07/12/19 07/12/19 04:46 04:46 05:23 WBC 23.6 H RBC 2.51 L Hgb 6.7 L Hct 20.8 L MCV 83 L MCH 27 L MCHC RDW 20.3 H Plt Count Lymph % (Auto) Cross % (Auto) Lymph # Cross # Baso # Seg Neutrophils % Seg Neuts % (Manual) 94.0 H Lymphocytes % (Manual) 4.0 L Monocytes % (Manual) Basophils % (Manual) Nucleated RBC % Seg Neutrophils # Seg Neutrophils # Man 22.2 H Lymphocytes # (Manual) 0.9 L Monocytes # (Manual) Eosinophils # (Manual) Basophils # (Manual) PT INR D-Dimer ABG pH ABG pO2 ABG HCO3 ABG O2 Saturation ABG Base Excess ABG Hemoglobin Oxyhemoglobin Sodium Potassium Chloride 107.1 H Carbon Dioxide BUN 25 H Creatinine 0.4 L Glucose 122 H POC Glucose 118 H Lactic Acid Calcium Magnesium Iron TIBC Ferritin AST ALT Lactate Dehydrogenase Troponin T C-Reactive Protein Total Protein Albumin Prealbumin Cholesterol LDL Cholesterol Direct HDL Cholesterol Urine WBC (Auto) Vancomycin Trough Coronavirus (PCR) Crossmatch 07/12/19 07/12/19 07/12/19 08:49 11:36 18:15 WBC RBC Hgb Hct MCV MCH MCHC RDW Plt Count Lymph % (Auto) Cross % (Auto) Lymph # Cross # Baso # Seg Neutrophils % Seg Neuts % (Manual) Lymphocytes % (Manual) Monocytes % (Manual) Basophils % (Manual) Nucleated RBC % Seg Neutrophils # Seg Neutrophils # Man Lymphocytes # (Manual) Monocytes # (Manual) Eosinophils # (Manual) Basophils # (Manual) PT INR D-Dimer ABG pH ABG pO2 ABG HCO3 ABG O2 Saturation ABG Base Excess ABG Hemoglobin Oxyhemoglobin Sodium Potassium Chloride Carbon Dioxide BUN Creatinine Glucose POC Glucose 124 H 110 H Lactic Acid Calcium Magnesium Iron TIBC Ferritin AST ALT Lactate Dehydrogenase Troponin T C-Reactive Protein Total Protein Albumin Prealbumin Cholesterol LDL Cholesterol Direct HDL Cholesterol Urine WBC (Auto) Vancomycin Trough Coronavirus (PCR) Crossmatch See Detail 07/12/19 07/13/19 07/13/19 23:16 05:26 06:50 WBC 23.9 H RBC 2.58 L Hgb 6.9 L Hct 21.5 L MCV 83 L MCH 27 L MCHC RDW 19.0 H Plt Count Lymph % (Auto) Cross % (Auto) Lymph # Cross # Baso # Seg Neutrophils % Seg Neuts % (Manual) 96.0 H Lymphocytes % (Manual) 3.0 L Monocytes % (Manual) Basophils % (Manual) Nucleated RBC % Seg Neutrophils # Seg Neutrophils # Man 22.9 H Lymphocytes # (Manual) 0.7 L Monocytes # (Manual) Eosinophils # (Manual) Basophils # (Manual) PT INR D-Dimer ABG pH ABG pO2 ABG HCO3 ABG O2 Saturation ABG Base Excess ABG Hemoglobin Oxyhemoglobin Sodium Potassium Chloride Carbon Dioxide BUN Creatinine Glucose POC Glucose 108 H 126 H Lactic Acid Calcium Magnesium Iron TIBC Ferritin AST ALT Lactate Dehydrogenase Troponin T C-Reactive Protein Total Protein Albumin Prealbumin Cholesterol LDL Cholesterol Direct HDL Cholesterol Urine WBC (Auto) Vancomycin Trough Coronavirus (PCR) Crossmatch 07/13/19 07/13/19 07/13/19 06:50 12:38 18:05 WBC RBC Hgb Hct MCV MCH MCHC RDW Plt Count Lymph % (Auto) Cross % (Auto) Lymph # Cross # Baso # Seg Neutrophils % Seg Neuts % (Manual) Lymphocytes % (Manual) Monocytes % (Manual) Basophils % (Manual) Nucleated RBC % Seg Neutrophils # Seg Neutrophils # Man Lymphocytes # (Manual) Monocytes # (Manual) Eosinophils # (Manual) Basophils # (Manual) PT INR D-Dimer ABG pH ABG pO2 ABG HCO3 ABG O2 Saturation ABG Base Excess ABG Hemoglobin Oxyhemoglobin Sodium Potassium Chloride Carbon Dioxide BUN 33 H Creatinine 0.5 L Glucose 136 H POC Glucose 164 H 145 H Lactic Acid Calcium Magnesium Iron TIBC Ferritin AST ALT Lactate Dehydrogenase Troponin T C-Reactive Protein Total Protein Albumin Prealbumin Cholesterol LDL Cholesterol Direct HDL Cholesterol Urine WBC (Auto) Vancomycin Trough Coronavirus (PCR) Crossmatch 07/13/19 07/14/19 07/14/19 18:30 00:21 04:40 WBC 22.9 H RBC 2.45 L Hgb 6.6 L Hct 21.1 L MCV MCH 27 L MCHC 31 L RDW 19.2 H Plt Count Lymph % (Auto) Cross % (Auto) Lymph # Cross # Baso # Seg Neutrophils % Seg Neuts % (Manual) 91.0 H Lymphocytes % (Manual) 7.0 L Monocytes % (Manual) Basophils % (Manual) Nucleated RBC % Seg Neutrophils # Seg Neutrophils # Man 20.8 H Lymphocytes # (Manual) Monocytes # (Manual) Eosinophils # (Manual) Basophils # (Manual) PT INR D-Dimer ABG pH ABG pO2 58.1 L ABG HCO3 ABG O2 Saturation 88.7 L ABG Base Excess ABG Hemoglobin 7.8 L Oxyhemoglobin 86.8 L Sodium Potassium Chloride Carbon Dioxide BUN Creatinine Glucose POC Glucose 118 H Lactic Acid Calcium Magnesium Iron TIBC Ferritin AST ALT Lactate Dehydrogenase Troponin T C-Reactive Protein Total Protein Albumin Prealbumin Cholesterol LDL Cholesterol Direct HDL Cholesterol Urine WBC (Auto) Vancomycin Trough Coronavirus (PCR) Crossmatch 07/14/19 07/14/19 07/14/19 04:40 05:38 05:45 WBC RBC Hgb Hct MCV MCH MCHC RDW Plt Count Lymph % (Auto) Cross % (Auto) Lymph # Cross # Baso # Seg Neutrophils % Seg Neuts % (Manual) Lymphocytes % (Manual) Monocytes % (Manual) Basophils % (Manual) Nucleated RBC % Seg Neutrophils # Seg Neutrophils # Man Lymphocytes # (Manual) Monocytes # (Manual) Eosinophils # (Manual) Basophils # (Manual) PT INR D-Dimer ABG pH 7.230 L ABG pO2 72.1 L ABG HCO3 ABG O2 Saturation 89.3 L ABG Base Excess -2.7 L ABG Hemoglobin 6.7 L Oxyhemoglobin 87.7 L Sodium Potassium Chloride 107.4 H Carbon Dioxide BUN 45 H Creatinine Glucose 101 H POC Glucose 154 H Lactic Acid Calcium Magnesium Iron TIBC Ferritin AST ALT Lactate Dehydrogenase Troponin T C-Reactive Protein Total Protein Albumin Prealbumin Cholesterol LDL Cholesterol Direct HDL Cholesterol Urine WBC (Auto) Vancomycin Trough Coronavirus (PCR) Crossmatch 07/14/19 07/14/19 07/14/19 12:25 18:20 19:01 WBC 22.4 H RBC 2.70 L Hgb 7.5 L Hct 23.3 L MCV MCH MCHC RDW 19.5 H Plt Count Lymph % (Auto) Cross % (Auto) Lymph # Cross # Baso # Seg Neutrophils % Seg Neuts % (Manual) Lymphocytes % (Manual) Monocytes % (Manual) Basophils % (Manual) Nucleated RBC % Seg Neutrophils # Seg Neutrophils # Man Lymphocytes # (Manual) Monocytes # (Manual) Eosinophils # (Manual) Basophils # (Manual) PT INR D-Dimer ABG pH ABG pO2 ABG HCO3 ABG O2 Saturation ABG Base Excess ABG Hemoglobin Oxyhemoglobin Sodium Potassium Chloride Carbon Dioxide BUN Creatinine Glucose POC Glucose 136 H 131 H Lactic Acid Calcium Magnesium Iron TIBC Ferritin AST ALT Lactate Dehydrogenase Troponin T C-Reactive Protein Total Protein Albumin Prealbumin Cholesterol LDL Cholesterol Direct HDL Cholesterol Urine WBC (Auto) Vancomycin Trough Coronavirus (PCR) Crossmatch 07/15/19 07/15/19 07/15/19 00:17 04:35 05:18 WBC 20.6 H RBC 2.41 L Hgb 6.8 L Hct 20.7 L MCV MCH MCHC RDW 20.2 H Plt Count Lymph % (Auto) Cross % (Auto) Lymph # Cross # Baso # Seg Neutrophils % Seg Neuts % (Manual) 92.0 H Lymphocytes % (Manual) 5.0 L Monocytes % (Manual) Basophils % (Manual) Nucleated RBC % Seg Neutrophils # Seg Neutrophils # Man 19.0 H Lymphocytes # (Manual) 1.0 L Monocytes # (Manual) Eosinophils # (Manual) Basophils # (Manual) PT INR D-Dimer ABG pH 7.342 L ABG pO2 ABG HCO3 ABG O2 Saturation ABG Base Excess -3.1 L ABG Hemoglobin 7.2 L Oxyhemoglobin 94.9 L Sodium Potassium Chloride Carbon Dioxide BUN Creatinine Glucose POC Glucose 116 H Lactic Acid Calcium Magnesium Iron TIBC Ferritin AST ALT Lactate Dehydrogenase Troponin T C-Reactive Protein Total Protein Albumin Prealbumin Cholesterol LDL Cholesterol Direct HDL Cholesterol Urine WBC (Auto) Vancomycin Trough Coronavirus (PCR) Crossmatch 07/15/19 07/15/19 07/15/19 05:18 05:57 11:28 WBC RBC Hgb Hct MCV MCH MCHC RDW Plt Count Lymph % (Auto) Cross % (Auto) Lymph # Cross # Baso # Seg Neutrophils % Seg Neuts % (Manual) Lymphocytes % (Manual) Monocytes % (Manual) Basophils % (Manual) Nucleated RBC % Seg Neutrophils # Seg Neutrophils # Man Lymphocytes # (Manual) Monocytes # (Manual) Eosinophils # (Manual) Basophils # (Manual) PT INR D-Dimer ABG pH ABG pO2 ABG HCO3 ABG O2 Saturation ABG Base Excess ABG Hemoglobin Oxyhemoglobin Sodium Potassium Chloride Carbon Dioxide 20 L BUN 59 H Creatinine Glucose 140 H POC Glucose 139 H 117 H Lactic Acid Calcium Magnesium Iron TIBC Ferritin AST ALT Lactate Dehydrogenase Troponin T C-Reactive Protein Total Protein Albumin Prealbumin Cholesterol LDL Cholesterol Direct HDL Cholesterol Urine WBC (Auto) Vancomycin Trough Coronavirus (PCR) Crossmatch 07/15/19 07/16/19 07/16/19 18:13 00:06 03:43 WBC RBC Hgb Hct MCV MCH MCHC RDW Plt Count Lymph % (Auto) Cross % (Auto) Lymph # Cross # Baso # Seg Neutrophils % Seg Neuts % (Manual) Lymphocytes % (Manual) Monocytes % (Manual) Basophils % (Manual) Nucleated RBC % Seg Neutrophils # Seg Neutrophils # Man Lymphocytes # (Manual) Monocytes # (Manual) Eosinophils # (Manual) Basophils # (Manual) PT INR D-Dimer ABG pH 7.344 L ABG pO2 68.6 L ABG HCO3 ABG O2 Saturation ABG Base Excess -3.5 L ABG Hemoglobin 6.1 L Oxyhemoglobin 93.3 L Sodium Potassium Chloride Carbon Dioxide BUN Creatinine Glucose POC Glucose 114 H 119 H Lactic Acid Calcium Magnesium Iron TIBC Ferritin AST ALT Lactate Dehydrogenase Troponin T C-Reactive Protein Total Protein Albumin Prealbumin Cholesterol LDL Cholesterol Direct HDL Cholesterol Urine WBC (Auto) Vancomycin Trough Coronavirus (PCR) Crossmatch 07/16/19 07/16/19 07/16/19 04:41 04:41 12:09 WBC 19.6 H RBC 2.81 L Hgb 7.7 L Hct 24.0 L MCV MCH 27 L MCHC RDW 19.4 H Plt Count 514 H Lymph % (Auto) 6.7 L Cross % (Auto) Lymph # Cross # 1.0 H Baso # Seg Neutrophils % 87.0 H Seg Neuts % (Manual) Lymphocytes % (Manual) Monocytes % (Manual) Basophils % (Manual) Nucleated RBC % Seg Neutrophils # 17.0 H Seg Neutrophils # Man Lymphocytes # (Manual) Monocytes # (Manual) Eosinophils # (Manual) Basophils # (Manual) PT INR D-Dimer ABG pH ABG pO2 ABG HCO3 ABG O2 Saturation ABG Base Excess ABG Hemoglobin Oxyhemoglobin Sodium Potassium 5.9 H Chloride Carbon Dioxide 21 L BUN 73 H Creatinine 2.0 H Glucose POC Glucose 141 H Lactic Acid Calcium Magnesium Iron TIBC Ferritin AST ALT Lactate Dehydrogenase Troponin T C-Reactive Protein Total Protein Albumin Prealbumin Cholesterol LDL Cholesterol Direct HDL Cholesterol Urine WBC (Auto) Vancomycin Trough Coronavirus (PCR) Crossmatch 07/16/19 07/16/19 07/17/19 16:19 17:45 00:16 WBC RBC Hgb Hct MCV MCH MCHC RDW Plt Count Lymph % (Auto) Cross % (Auto) Lymph # Cross # Baso # Seg Neutrophils % Seg Neuts % (Manual) Lymphocytes % (Manual) Monocytes % (Manual) Basophils % (Manual) Nucleated RBC % Seg Neutrophils # Seg Neutrophils # Man Lymphocytes # (Manual) Monocytes # (Manual) Eosinophils # (Manual) Basophils # (Manual) PT INR D-Dimer ABG pH ABG pO2 ABG HCO3 ABG O2 Saturation ABG Base Excess ABG Hemoglobin Oxyhemoglobin Sodium Potassium 5.1 H Chloride Carbon Dioxide 20 L BUN 72 H Creatinine 1.7 H Glucose 128 H POC Glucose 181 H 164 H Lactic Acid Calcium Magnesium Iron TIBC Ferritin AST ALT Lactate Dehydrogenase Troponin T C-Reactive Protein Total Protein Albumin Prealbumin Cholesterol LDL Cholesterol Direct HDL Cholesterol Urine WBC (Auto) Vancomycin Trough Coronavirus (PCR) Crossmatch 07/17/19 07/17/19 07/17/19 04:20 04:39 04:39 WBC 16.1 H RBC 2.92 L Hgb 8.0 L Hct 25.5 L MCV MCH MCHC 31 L RDW 19.7 H Plt Count 564 H Lymph % (Auto) 3.6 L Cross % (Auto) 7.4 H Lymph # 0.6 L Cross # 1.2 H Baso # Seg Neutrophils % 87.5 H Seg Neuts % (Manual) Lymphocytes % (Manual) Monocytes % (Manual) Basophils % (Manual) Nucleated RBC % Seg Neutrophils # 14.1 H Seg Neutrophils # Man Lymphocytes # (Manual) Monocytes # (Manual) Eosinophils # (Manual) Basophils # (Manual) PT INR D-Dimer ABG pH 7.231 L ABG pO2 95.3 H ABG HCO3 ABG O2 Saturation ABG Base Excess -5.0 L ABG Hemoglobin 7.9 L Oxyhemoglobin 94.8 L Sodium Potassium Chloride 107.8 H Carbon Dioxide 21 L BUN 68 H Creatinine Glucose POC Glucose Lactic Acid Calcium Magnesium Iron TIBC Ferritin AST ALT Lactate Dehydrogenase Troponin T C-Reactive Protein Total Protein Albumin Prealbumin Cholesterol LDL Cholesterol Direct HDL Cholesterol Urine WBC (Auto) Vancomycin Trough Coronavirus (PCR) Crossmatch 07/17/19 07/17/19 07/17/19 05:28 12:11 18:48 WBC RBC Hgb Hct MCV MCH MCHC RDW Plt Count Lymph % (Auto) Cross % (Auto) Lymph # Cross # Baso # Seg Neutrophils % Seg Neuts % (Manual) Lymphocytes % (Manual) Monocytes % (Manual) Basophils % (Manual) Nucleated RBC % Seg Neutrophils # Seg Neutrophils # Man Lymphocytes # (Manual) Monocytes # (Manual) Eosinophils # (Manual) Basophils # (Manual) PT INR D-Dimer ABG pH ABG pO2 ABG HCO3 ABG O2 Saturation ABG Base Excess ABG Hemoglobin Oxyhemoglobin Sodium Potassium Chloride Carbon Dioxide BUN Creatinine Glucose POC Glucose 121 H 125 H 174 H Lactic Acid Calcium Magnesium Iron TIBC Ferritin AST ALT Lactate Dehydrogenase Troponin T C-Reactive Protein Total Protein Albumin Prealbumin Cholesterol LDL Cholesterol Direct HDL Cholesterol Urine WBC (Auto) Vancomycin Trough Coronavirus (PCR) Crossmatch 07/17/19 07/17/19 07/18/19 19:55 23:57 02:30 WBC RBC Hgb Hct MCV MCH MCHC RDW Plt Count Lymph % (Auto) Cross % (Auto) Lymph # Cross # Baso # Seg Neutrophils % Seg Neuts % (Manual) Lymphocytes % (Manual) Monocytes % (Manual) Basophils % (Manual) Nucleated RBC % Seg Neutrophils # Seg Neutrophils # Man Lymphocytes # (Manual) Monocytes # (Manual) Eosinophils # (Manual) Basophils # (Manual) PT INR D-Dimer ABG pH 7.344 L 7.294 L ABG pO2 78.5 L 119.2 H ABG HCO3 ABG O2 Saturation ABG Base Excess -3.3 L -2.6 L ABG Hemoglobin 8.6 L 8.1 L Oxyhemoglobin 94.8 L Sodium Potassium Chloride Carbon Dioxide BUN Creatinine Glucose POC Glucose 148 H Lactic Acid Calcium Magnesium Iron TIBC Ferritin AST ALT Lactate Dehydrogenase Troponin T C-Reactive Protein Total Protein Albumin Prealbumin Cholesterol LDL Cholesterol Direct HDL Cholesterol Urine WBC (Auto) Vancomycin Trough Coronavirus (PCR) Crossmatch 07/18/19 07/18/19 07/18/19 04:49 05:22 05:22 WBC 15.9 H RBC 3.00 L Hgb 8.1 L Hct 26.0 L MCV MCH 27 L MCHC 31 L RDW 19.4 H Plt Count 733 H Lymph % (Auto) 6.3 L Cross % (Auto) 7.4 H Lymph # 1.0 L Cross # 1.2 H Baso # 0.2 H Seg Neutrophils % 83.8 H Seg Neuts % (Manual) Lymphocytes % (Manual) Monocytes % (Manual) Basophils % (Manual) Nucleated RBC % Seg Neutrophils # 13.3 H Seg Neutrophils # Man Lymphocytes # (Manual) Monocytes # (Manual) Eosinophils # (Manual) Basophils # (Manual) PT INR D-Dimer ABG pH ABG pO2 ABG HCO3 ABG O2 Saturation ABG Base Excess ABG Hemoglobin Oxyhemoglobin Sodium Potassium Chloride 110.6 H Carbon Dioxide BUN 61 H Creatinine Glucose 109 H POC Glucose 116 H Lactic Acid Calcium Magnesium Iron TIBC Ferritin AST ALT Lactate Dehydrogenase Troponin T C-Reactive Protein Total Protein Albumin Prealbumin Cholesterol LDL Cholesterol Direct HDL Cholesterol Urine WBC (Auto) Vancomycin Trough Coronavirus (PCR) Crossmatch 07/18/19 07/18/19 07/18/19 12:23 18:06 22:20 WBC RBC Hgb Hct MCV MCH MCHC RDW Plt Count Lymph % (Auto) Cross % (Auto) Lymph # Cross # Baso # Seg Neutrophils % Seg Neuts % (Manual) Lymphocytes % (Manual) Monocytes % (Manual) Basophils % (Manual) Nucleated RBC % Seg Neutrophils # Seg Neutrophils # Man Lymphocytes # (Manual) Monocytes # (Manual) Eosinophils # (Manual) Basophils # (Manual) PT INR D-Dimer ABG pH 7.338 L ABG pO2 135.1 H ABG HCO3 ABG O2 Saturation ABG Base Excess ABG Hemoglobin 9.2 L Oxyhemoglobin Sodium Potassium Chloride Carbon Dioxide BUN Creatinine Glucose POC Glucose 114 H 113 H Lactic Acid Calcium Magnesium Iron TIBC Ferritin AST ALT Lactate Dehydrogenase Troponin T C-Reactive Protein Total Protein Albumin Prealbumin Cholesterol LDL Cholesterol Direct HDL Cholesterol Urine WBC (Auto) Vancomycin Trough Coronavirus (PCR) Crossmatch 07/18/19 07/19/19 07/19/19 23:33 03:45 05:18 WBC RBC Hgb Hct MCV MCH MCHC RDW Plt Count Lymph % (Auto) Cross % (Auto) Lymph # Cross # Baso # Seg Neutrophils % Seg Neuts % (Manual) Lymphocytes % (Manual) Monocytes % (Manual) Basophils % (Manual) Nucleated RBC % Seg Neutrophils # Seg Neutrophils # Man Lymphocytes # (Manual) Monocytes # (Manual) Eosinophils # (Manual) Basophils # (Manual) PT INR D-Dimer ABG pH 7.342 L ABG pO2 95.0 H ABG HCO3 ABG O2 Saturation ABG Base Excess ABG Hemoglobin 8.5 L Oxyhemoglobin Sodium Potassium Chloride Carbon Dioxide BUN Creatinine Glucose POC Glucose 125 H 111 H Lactic Acid Calcium Magnesium Iron TIBC Ferritin AST ALT Lactate Dehydrogenase Troponin T C-Reactive Protein Total Protein Albumin Prealbumin Cholesterol LDL Cholesterol Direct HDL Cholesterol Urine WBC (Auto) Vancomycin Trough Coronavirus (PCR) Crossmatch 07/19/19 07/19/19 07/19/19 08:45 08:45 11:47 WBC 15.9 H RBC 3.31 L Hgb 9.1 L Hct 28.4 L MCV MCH 27 L MCHC RDW 19.1 H Plt Count 858 H Lymph % (Auto) 4.9 L Cross % (Auto) 8.1 H Lymph # 0.8 L Cross # 1.3 H Baso # Seg Neutrophils % 85.5 H Seg Neuts % (Manual) Lymphocytes % (Manual) Monocytes % (Manual) Basophils % (Manual) Nucleated RBC % Seg Neutrophils # 13.6 H Seg Neutrophils # Man Lymphocytes # (Manual) Monocytes # (Manual) Eosinophils # (Manual) Basophils # (Manual) PT INR D-Dimer ABG pH ABG pO2 ABG HCO3 ABG O2 Saturation ABG Base Excess ABG Hemoglobin Oxyhemoglobin Sodium Potassium Chloride 111.6 H Carbon Dioxide BUN 50 H Creatinine 0.7 L Glucose 118 H POC Glucose 114 H Lactic Acid Calcium Magnesium Iron TIBC Ferritin AST ALT Lactate Dehydrogenase Troponin T C-Reactive Protein Total Protein Albumin Prealbumin Cholesterol LDL Cholesterol Direct HDL Cholesterol Urine WBC (Auto) Vancomycin Trough Coronavirus (PCR) Crossmatch 07/19/19 07/19/19 07/20/19 18:25 23:44 04:39 WBC RBC Hgb Hct MCV MCH MCHC RDW Plt Count Lymph % (Auto) Cross % (Auto) Lymph # Cross # Baso # Seg Neutrophils % Seg Neuts % (Manual) Lymphocytes % (Manual) Monocytes % (Manual) Basophils % (Manual) Nucleated RBC % Seg Neutrophils # Seg Neutrophils # Man Lymphocytes # (Manual) Monocytes # (Manual) Eosinophils # (Manual) Basophils # (Manual) PT INR D-Dimer ABG pH ABG pO2 ABG HCO3 ABG O2 Saturation ABG Base Excess ABG Hemoglobin Oxyhemoglobin Sodium Potassium Chloride 110.3 H Carbon Dioxide BUN 44 H Creatinine 0.6 L Glucose 120 H POC Glucose 115 H 117 H Lactic Acid Calcium Magnesium Iron TIBC Ferritin AST ALT Lactate Dehydrogenase Troponin T C-Reactive Protein Total Protein Albumin Prealbumin Cholesterol LDL Cholesterol Direct HDL Cholesterol Urine WBC (Auto) Vancomycin Trough Coronavirus (PCR) Crossmatch 07/20/19 07/21/19 07/21/19 05:30 11:59 17:40 WBC RBC Hgb Hct MCV MCH MCHC RDW Plt Count Lymph % (Auto) Cross % (Auto) Lymph # Cross # Baso # Seg Neutrophils % Seg Neuts % (Manual) Lymphocytes % (Manual) Monocytes % (Manual) Basophils % (Manual) Nucleated RBC % Seg Neutrophils # Seg Neutrophils # Man Lymphocytes # (Manual) Monocytes # (Manual) Eosinophils # (Manual) Basophils # (Manual) PT INR D-Dimer ABG pH ABG pO2 ABG HCO3 ABG O2 Saturation ABG Base Excess ABG Hemoglobin Oxyhemoglobin Sodium Potassium Chloride Carbon Dioxide BUN Creatinine Glucose POC Glucose 131 H 122 H 125 H Lactic Acid Calcium Magnesium Iron TIBC Ferritin AST ALT Lactate Dehydrogenase Troponin T C-Reactive Protein Total Protein Albumin Prealbumin Cholesterol LDL Cholesterol Direct HDL Cholesterol Urine WBC (Auto) Vancomycin Trough Coronavirus (PCR) Crossmatch 07/22/19 07/22/19 07/22/19 05:38 05:38 12:29 WBC 12.6 H RBC 3.19 L Hgb 8.9 L Hct 27.5 L MCV MCH MCHC RDW 18.9 H Plt Count 1101 H* Lymph % (Auto) Cross % (Auto) 12.2 H Lymph # Cross # 1.5 H Baso # Seg Neutrophils % 72.8 H Seg Neuts % (Manual) 76.0 H Lymphocytes % (Manual) 7.0 L Monocytes % (Manual) 14.0 H Basophils % (Manual) Nucleated RBC % 1.0 H Seg Neutrophils # 9.2 H Seg Neutrophils # Man 9.6 H Lymphocytes # (Manual) 0.9 L Monocytes # (Manual) 1.8 H Eosinophils # (Manual) Basophils # (Manual) PT INR D-Dimer ABG pH ABG pO2 ABG HCO3 ABG O2 Saturation ABG Base Excess ABG Hemoglobin Oxyhemoglobin Sodium Potassium 3.4 L Chloride Carbon Dioxide BUN 29 H Creatinine 0.5 L Glucose POC Glucose 116 H Lactic Acid Calcium Magnesium Iron TIBC Ferritin AST ALT Lactate Dehydrogenase Troponin T C-Reactive Protein Total Protein Albumin Prealbumin Cholesterol LDL Cholesterol Direct HDL Cholesterol Urine WBC (Auto) Vancomycin Trough Coronavirus (PCR) Crossmatch 07/22/19 07/22/19 07/23/19 18:20 23:51 04:52 WBC RBC Hgb Hct MCV MCH MCHC RDW Plt Count Lymph % (Auto) Cross % (Auto) Lymph # Cross # Baso # Seg Neutrophils % Seg Neuts % (Manual) Lymphocytes % (Manual) Monocytes % (Manual) Basophils % (Manual) Nucleated RBC % Seg Neutrophils # Seg Neutrophils # Man Lymphocytes # (Manual) Monocytes # (Manual) Eosinophils # (Manual) Basophils # (Manual) PT INR D-Dimer ABG pH ABG pO2 ABG HCO3 ABG O2 Saturation ABG Base Excess ABG Hemoglobin Oxyhemoglobin Sodium Potassium Chloride Carbon Dioxide BUN 24 H Creatinine 0.4 L Glucose POC Glucose 107 H 110 H Lactic Acid Calcium Magnesium Iron TIBC Ferritin AST ALT Lactate Dehydrogenase Troponin T C-Reactive Protein Total Protein Albumin Prealbumin Cholesterol LDL Cholesterol Direct HDL Cholesterol Urine WBC (Auto) Vancomycin Trough Coronavirus (PCR) Crossmatch 07/23/19 07/23/19 07/24/19 06:00 23:15 04:40 WBC RBC Hgb Hct MCV MCH MCHC RDW Plt Count Lymph % (Auto) Cross % (Auto) Lymph # Cross # Baso # Seg Neutrophils % Seg Neuts % (Manual) Lymphocytes % (Manual) Monocytes % (Manual) Basophils % (Manual) Nucleated RBC % Seg Neutrophils # Seg Neutrophils # Man Lymphocytes # (Manual) Monocytes # (Manual) Eosinophils # (Manual) Basophils # (Manual) PT INR D-Dimer ABG pH ABG pO2 73.5 L ABG HCO3 27.0 H 28.5 H ABG O2 Saturation 94.5 L ABG Base Excess ABG Hemoglobin 9.4 L 8.9 L Oxyhemoglobin 94.0 L 92.7 L Sodium Potassium Chloride Carbon Dioxide BUN Creatinine Glucose POC Glucose 117 H Lactic Acid Calcium Magnesium Iron TIBC Ferritin AST ALT Lactate Dehydrogenase Troponin T C-Reactive Protein Total Protein Albumin Prealbumin Cholesterol LDL Cholesterol Direct HDL Cholesterol Urine WBC (Auto) Vancomycin Trough Coronavirus (PCR) Crossmatch 07/24/19 07/24/19 07/25/19 05:25 12:06 00:16 WBC RBC Hgb Hct MCV MCH MCHC RDW Plt Count Lymph % (Auto) Cross % (Auto) Lymph # Cross # Baso # Seg Neutrophils % Seg Neuts % (Manual) Lymphocytes % (Manual) Monocytes % (Manual) Basophils % (Manual) Nucleated RBC % Seg Neutrophils # Seg Neutrophils # Man Lymphocytes # (Manual) Monocytes # (Manual) Eosinophils # (Manual) Basophils # (Manual) PT INR D-Dimer ABG pH ABG pO2 ABG HCO3 ABG O2 Saturation ABG Base Excess ABG Hemoglobin Oxyhemoglobin Sodium Potassium Chloride Carbon Dioxide BUN Creatinine Glucose POC Glucose 114 H 108 H 106 H Lactic Acid Calcium Magnesium Iron TIBC Ferritin AST ALT Lactate Dehydrogenase Troponin T C-Reactive Protein Total Protein Albumin Prealbumin Cholesterol LDL Cholesterol Direct HDL Cholesterol Urine WBC (Auto) Vancomycin Trough Coronavirus (PCR) Crossmatch 07/25/19 07/25/19 07/25/19 05:14 05:14 05:17 WBC 17.8 H RBC 3.32 L Hgb 9.2 L Hct 28.6 L MCV MCH MCHC RDW 19.9 H Plt Count 994 H Lymph % (Auto) Cross % (Auto) Lymph # Cross # Baso # Seg Neutrophils % Seg Neuts % (Manual) 82.0 H Lymphocytes % (Manual) 5.0 L Monocytes % (Manual) Basophils % (Manual) Nucleated RBC % Seg Neutrophils # Seg Neutrophils # Man 14.6 H Lymphocytes # (Manual) 0.9 L Monocytes # (Manual) 1.2 H Eosinophils # (Manual) Basophils # (Manual) PT INR D-Dimer ABG pH ABG pO2 ABG HCO3 ABG O2 Saturation ABG Base Excess ABG Hemoglobin Oxyhemoglobin Sodium Potassium Chloride Carbon Dioxide BUN Creatinine 0.4 L Glucose 110 H POC Glucose 107 H Lactic Acid Calcium Magnesium Iron TIBC Ferritin AST ALT Lactate Dehydrogenase Troponin T C-Reactive Protein Total Protein Albumin Prealbumin Cholesterol LDL Cholesterol Direct HDL Cholesterol Urine WBC (Auto) Vancomycin Trough Coronavirus (PCR) Crossmatch 07/25/19 07/25/19 07/26/19 11:55 23:49 06:01 WBC RBC Hgb Hct MCV MCH MCHC RDW Plt Count Lymph % (Auto) Cross % (Auto) Lymph # Cross # Baso # Seg Neutrophils % Seg Neuts % (Manual) Lymphocytes % (Manual) Monocytes % (Manual) Basophils % (Manual) Nucleated RBC % Seg Neutrophils # Seg Neutrophils # Man Lymphocytes # (Manual) Monocytes # (Manual) Eosinophils # (Manual) Basophils # (Manual) PT INR D-Dimer ABG pH ABG pO2 ABG HCO3 ABG O2 Saturation ABG Base Excess ABG Hemoglobin Oxyhemoglobin Sodium Potassium Chloride Carbon Dioxide BUN Creatinine Glucose POC Glucose 123 H 118 H 106 H Lactic Acid Calcium Magnesium Iron TIBC Ferritin AST ALT Lactate Dehydrogenase Troponin T C-Reactive Protein Total Protein Albumin Prealbumin Cholesterol LDL Cholesterol Direct HDL Cholesterol Urine WBC (Auto) Vancomycin Trough Coronavirus (PCR) Crossmatch 07/26/19 07/27/19 07/27/19 17:02 00:28 05:16 WBC RBC Hgb Hct MCV MCH MCHC RDW Plt Count Lymph % (Auto) Cross % (Auto) Lymph # Cross # Baso # Seg Neutrophils % Seg Neuts % (Manual) Lymphocytes % (Manual) Monocytes % (Manual) Basophils % (Manual) Nucleated RBC % Seg Neutrophils # Seg Neutrophils # Man Lymphocytes # (Manual) Monocytes # (Manual) Eosinophils # (Manual) Basophils # (Manual) PT INR D-Dimer ABG pH ABG pO2 63.4 L ABG HCO3 31.3 H ABG O2 Saturation 92.7 L ABG Base Excess 6.3 H ABG Hemoglobin 7.6 L Oxyhemoglobin 90.9 L Sodium Potassium Chloride Carbon Dioxide BUN Creatinine Glucose POC Glucose 116 H 158 H Lactic Acid Calcium Magnesium Iron TIBC Ferritin AST ALT Lactate Dehydrogenase Troponin T C-Reactive Protein Total Protein Albumin Prealbumin Cholesterol LDL Cholesterol Direct HDL Cholesterol Urine WBC (Auto) Vancomycin Trough Coronavirus (PCR) Crossmatch 07/28/19 07/28/19 07/28/19 10:13 10:13 23:54 WBC 18.5 H RBC 3.20 L Hgb 8.8 L Hct 26.8 L MCV MCH 27 L MCHC RDW 19.9 H Plt Count 730 H Lymph % (Auto) Cross % (Auto) Lymph # Cross # Baso # Seg Neutrophils % Seg Neuts % (Manual) Lymphocytes % (Manual) Monocytes % (Manual) Basophils % (Manual) Nucleated RBC % Seg Neutrophils # Seg Neutrophils # Man Lymphocytes # (Manual) Monocytes # (Manual) Eosinophils # (Manual) Basophils # (Manual) PT INR D-Dimer ABG pH ABG pO2 ABG HCO3 ABG O2 Saturation ABG Base Excess ABG Hemoglobin Oxyhemoglobin Sodium Potassium 3.2 L Chloride 97.5 L Carbon Dioxide 31 H BUN Creatinine 0.5 L Glucose POC Glucose 120 H Lactic Acid Calcium Magnesium Iron TIBC Ferritin AST ALT Lactate Dehydrogenase Troponin T C-Reactive Protein Total Protein Albumin Prealbumin Cholesterol LDL Cholesterol Direct HDL Cholesterol Urine WBC (Auto) Vancomycin Trough Coronavirus (PCR) Crossmatch 07/29/19 07/29/19 07/29/19 11:57 17:43 Unknown WBC RBC Hgb Hct MCV MCH MCHC RDW Plt Count Lymph % (Auto) Cross % (Auto) Lymph # Cross # Baso # Seg Neutrophils % Seg Neuts % (Manual) Lymphocytes % (Manual) Monocytes % (Manual) Basophils % (Manual) Nucleated RBC % Seg Neutrophils # Seg Neutrophils # Man Lymphocytes # (Manual) Monocytes # (Manual) Eosinophils # (Manual) Basophils # (Manual) PT INR D-Dimer ABG pH ABG pO2 ABG HCO3 ABG O2 Saturation ABG Base Excess ABG Hemoglobin Oxyhemoglobin Sodium Potassium Chloride Carbon Dioxide BUN Creatinine Glucose POC Glucose 112 H Lactic Acid Calcium Magnesium Iron TIBC Ferritin AST ALT Lactate Dehydrogenase Troponin T C-Reactive Protein Total Protein Albumin Prealbumin Cholesterol LDL Cholesterol Direct HDL Cholesterol Urine WBC (Auto) 63.0 H Vancomycin Trough Coronavirus (PCR) Positive A Crossmatch 07/30/19 07/30/19 07/30/19 00:20 04:35 04:35 WBC 24.3 H RBC 3.12 L Hgb 8.5 L Hct 26.3 L MCV MCH 27 L MCHC RDW 20.2 H Plt Count 550 H Lymph % (Auto) Cross % (Auto) Lymph # Cross # Baso # Seg Neutrophils % Seg Neuts % (Manual) Lymphocytes % (Manual) Monocytes % (Manual) Basophils % (Manual) Nucleated RBC % Seg Neutrophils # Seg Neutrophils # Man Lymphocytes # (Manual) Monocytes # (Manual) Eosinophils # (Manual) Basophils # (Manual) PT INR D-Dimer ABG pH ABG pO2 ABG HCO3 ABG O2 Saturation ABG Base Excess ABG Hemoglobin Oxyhemoglobin Sodium Potassium 3.0 L Chloride 96.3 L Carbon Dioxide 32 H BUN Creatinine 0.5 L Glucose POC Glucose 106 H Lactic Acid Calcium Magnesium Iron TIBC Ferritin AST ALT Lactate Dehydrogenase Troponin T C-Reactive Protein Total Protein Albumin Prealbumin Cholesterol LDL Cholesterol Direct HDL Cholesterol Urine WBC (Auto) Vancomycin Trough Coronavirus (PCR) Crossmatch 07/31/19 07/31/19 07/31/19 04:42 04:42 11:33 WBC 23.8 H RBC 3.10 L Hgb 8.4 L Hct 26.1 L MCV MCH 27 L MCHC RDW 19.6 H Plt Count 561 H Lymph % (Auto) Cross % (Auto) Lymph # Cross # Baso # Seg Neutrophils % Seg Neuts % (Manual) Lymphocytes % (Manual) Monocytes % (Manual) Basophils % (Manual) Nucleated RBC % Seg Neutrophils # Seg Neutrophils # Man Lymphocytes # (Manual) Monocytes # (Manual) Eosinophils # (Manual) Basophils # (Manual) PT INR D-Dimer ABG pH ABG pO2 ABG HCO3 ABG O2 Saturation ABG Base Excess ABG Hemoglobin Oxyhemoglobin Sodium 135 L Potassium Chloride 93.9 L Carbon Dioxide 32 H BUN Creatinine 0.4 L Glucose POC Glucose 116 H Lactic Acid Calcium Magnesium Iron TIBC Ferritin AST ALT Lactate Dehydrogenase Troponin T C-Reactive Protein Total Protein Albumin 1.6 L Prealbumin 0.037 L Cholesterol LDL Cholesterol Direct HDL Cholesterol Urine WBC (Auto) Vancomycin Trough Coronavirus (PCR) Crossmatch 07/31/19 08/01/19 08/01/19 23:33 04:57 04:57 WBC 26.7 H RBC 3.12 L Hgb 8.5 L Hct 26.3 L MCV MCH 27 L MCHC RDW 19.2 H Plt Count 602 H Lymph % (Auto) Cross % (Auto) Lymph # Cross # Baso # Seg Neutrophils % Seg Neuts % (Manual) 93.0 H Lymphocytes % (Manual) 2.0 L Monocytes % (Manual) Basophils % (Manual) Nucleated RBC % Seg Neutrophils # Seg Neutrophils # Man 24.8 H Lymphocytes # (Manual) 0.5 L Monocytes # (Manual) 1.1 H Eosinophils # (Manual) Basophils # (Manual) PT INR D-Dimer ABG pH ABG pO2 ABG HCO3 ABG O2 Saturation ABG Base Excess ABG Hemoglobin Oxyhemoglobin Sodium 132 L Potassium Chloride 93.8 L Carbon Dioxide 31 H BUN Creatinine 0.3 L Glucose POC Glucose 148 H Lactic Acid Calcium 8.1 L Magnesium Iron TIBC Ferritin AST ALT Lactate Dehydrogenase Troponin T C-Reactive Protein Total Protein Albumin Prealbumin Cholesterol LDL Cholesterol Direct HDL Cholesterol Urine WBC (Auto) Vancomycin Trough Coronavirus (PCR) Crossmatch 08/01/19 08/02/19 08/02/19 12:16 00:22 05:24 WBC RBC Hgb Hct MCV MCH MCHC RDW Plt Count Lymph % (Auto) Cross % (Auto) Lymph # Cross # Baso # Seg Neutrophils % Seg Neuts % (Manual) Lymphocytes % (Manual) Monocytes % (Manual) Basophils % (Manual) Nucleated RBC % Seg Neutrophils # Seg Neutrophils # Man Lymphocytes # (Manual) Monocytes # (Manual) Eosinophils # (Manual) Basophils # (Manual) PT INR D-Dimer ABG pH ABG pO2 ABG HCO3 ABG O2 Saturation ABG Base Excess ABG Hemoglobin Oxyhemoglobin Sodium Potassium Chloride Carbon Dioxide BUN Creatinine Glucose POC Glucose 120 H 119 H 113 H Lactic Acid Calcium Magnesium Iron TIBC Ferritin AST ALT Lactate Dehydrogenase Troponin T C-Reactive Protein Total Protein Albumin Prealbumin Cholesterol LDL Cholesterol Direct HDL Cholesterol Urine WBC (Auto) Vancomycin Trough Coronavirus (PCR) Crossmatch 08/03/19 08/03/19 08/03/19 05:20 12:01 23:48 WBC RBC Hgb Hct MCV MCH MCHC RDW Plt Count Lymph % (Auto) Cross % (Auto) Lymph # Cross # Baso # Seg Neutrophils % Seg Neuts % (Manual) Lymphocytes % (Manual) Monocytes % (Manual) Basophils % (Manual) Nucleated RBC % Seg Neutrophils # Seg Neutrophils # Man Lymphocytes # (Manual) Monocytes # (Manual) Eosinophils # (Manual) Basophils # (Manual) PT INR D-Dimer ABG pH ABG pO2 ABG HCO3 ABG O2 Saturation ABG Base Excess ABG Hemoglobin Oxyhemoglobin Sodium Potassium Chloride Carbon Dioxide BUN Creatinine Glucose POC Glucose 118 H 106 H 120 H Lactic Acid Calcium Magnesium Iron TIBC Ferritin AST ALT Lactate Dehydrogenase Troponin T C-Reactive Protein Total Protein Albumin Prealbumin Cholesterol LDL Cholesterol Direct HDL Cholesterol Urine WBC (Auto) Vancomycin Trough Coronavirus (PCR) Crossmatch 08/04/19 08/04/19 08/04/19 05:38 05:38 06:29 WBC 26.1 H RBC 2.77 L Hgb 7.5 L Hct 23.2 L MCV MCH 27 L MCHC RDW 19.2 H Plt Count 648 H Lymph % (Auto) Cross % (Auto) Lymph # Cross # Baso # Seg Neutrophils % Seg Neuts % (Manual) 90.5 H Lymphocytes % (Manual) 3.5 L Monocytes % (Manual) Basophils % (Manual) Nucleated RBC % Seg Neutrophils # Seg Neutrophils # Man 23.6 H Lymphocytes # (Manual) 0.9 L Monocytes # (Manual) 1.2 H Eosinophils # (Manual) Basophils # (Manual) PT INR D-Dimer ABG pH ABG pO2 ABG HCO3 ABG O2 Saturation ABG Base Excess ABG Hemoglobin Oxyhemoglobin Sodium 132 L Potassium 3.4 L D Chloride 92.7 L Carbon Dioxide 33 H BUN Creatinine 0.2 L Glucose POC Glucose 108 H Lactic Acid Calcium 8.1 L Magnesium Iron TIBC Ferritin AST ALT Lactate Dehydrogenase Troponin T C-Reactive Protein Total Protein Albumin Prealbumin Cholesterol LDL Cholesterol Direct HDL Cholesterol Urine WBC (Auto) Vancomycin Trough Coronavirus (PCR) Crossmatch 08/04/19 08/05/19 08/05/19 12:30 04:58 04:58 WBC 21.0 H RBC 2.63 L Hgb 7.2 L Hct 21.9 L MCV 83 L MCH 27 L MCHC RDW 18.9 H Plt Count 691 H Lymph % (Auto) Cross % (Auto) Lymph # Cross # Baso # Seg Neutrophils % Seg Neuts % (Manual) 86.0 H Lymphocytes % (Manual) 3.0 L Monocytes % (Manual) 10.0 H Basophils % (Manual) Nucleated RBC % Seg Neutrophils # Seg Neutrophils # Man 18.1 H Lymphocytes # (Manual) 0.6 L Monocytes # (Manual) 2.1 H Eosinophils # (Manual) Basophils # (Manual) PT INR D-Dimer ABG pH ABG pO2 ABG HCO3 ABG O2 Saturation ABG Base Excess ABG Hemoglobin Oxyhemoglobin Sodium 134 L Potassium 3.2 L Chloride 93.2 L Carbon Dioxide 34 H BUN 8 L Creatinine 0.3 L Glucose POC Glucose 138 H Lactic Acid Calcium 8.1 L Magnesium Iron TIBC Ferritin AST ALT Lactate Dehydrogenase Troponin T C-Reactive Protein Total Protein Albumin Prealbumin Cholesterol LDL Cholesterol Direct HDL Cholesterol Urine WBC (Auto) Vancomycin Trough Coronavirus (PCR) Crossmatch 08/05/19 08/05/19 08/05/19 11:53 17:57 23:58 WBC RBC Hgb Hct MCV MCH MCHC RDW Plt Count Lymph % (Auto) Cross % (Auto) Lymph # Cross # Baso # Seg Neutrophils % Seg Neuts % (Manual) Lymphocytes % (Manual) Monocytes % (Manual) Basophils % (Manual) Nucleated RBC % Seg Neutrophils # Seg Neutrophils # Man Lymphocytes # (Manual) Monocytes # (Manual) Eosinophils # (Manual) Basophils # (Manual) PT INR D-Dimer ABG pH ABG pO2 ABG HCO3 ABG O2 Saturation ABG Base Excess ABG Hemoglobin Oxyhemoglobin Sodium Potassium Chloride Carbon Dioxide BUN Creatinine Glucose POC Glucose 106 H 111 H 116 H Lactic Acid Calcium Magnesium Iron TIBC Ferritin AST ALT Lactate Dehydrogenase Troponin T C-Reactive Protein Total Protein Albumin Prealbumin Cholesterol LDL Cholesterol Direct HDL Cholesterol Urine WBC (Auto) Vancomycin Trough Coronavirus (PCR) Crossmatch 08/06/19 08/06/19 08/06/19 04:11 04:11 06:04 WBC 20.8 H RBC 2.80 L Hgb 7.6 L Hct 23.5 L MCV MCH 27 L MCHC RDW 19.0 H Plt Count 723 H Lymph % (Auto) Cross % (Auto) Lymph # Cross # Baso # Seg Neutrophils % Seg Neuts % (Manual) 88.0 H Lymphocytes % (Manual) 3.0 L Monocytes % (Manual) Basophils % (Manual) Nucleated RBC % Seg Neutrophils # Seg Neutrophils # Man 18.3 H Lymphocytes # (Manual) 0.6 L Monocytes # (Manual) Eosinophils # (Manual) Basophils # (Manual) 0.2 H PT INR D-Dimer ABG pH ABG pO2 ABG HCO3 ABG O2 Saturation ABG Base Excess ABG Hemoglobin Oxyhemoglobin Sodium Potassium 3.4 L Chloride 95.2 L Carbon Dioxide 32 H BUN Creatinine 0.3 L Glucose POC Glucose 108 H Lactic Acid Calcium 8.2 L Magnesium Iron TIBC Ferritin AST ALT Lactate Dehydrogenase Troponin T C-Reactive Protein Total Protein Albumin Prealbumin Cholesterol LDL Cholesterol Direct HDL Cholesterol Urine WBC (Auto) Vancomycin Trough Coronavirus (PCR) Crossmatch 08/06/19 08/06/19 08/07/19 12:23 17:13 00:21 WBC RBC Hgb Hct MCV MCH MCHC RDW Plt Count Lymph % (Auto) Cross % (Auto) Lymph # Cross # Baso # Seg Neutrophils % Seg Neuts % (Manual) Lymphocytes % (Manual) Monocytes % (Manual) Basophils % (Manual) Nucleated RBC % Seg Neutrophils # Seg Neutrophils # Man Lymphocytes # (Manual) Monocytes # (Manual) Eosinophils # (Manual) Basophils # (Manual) PT INR D-Dimer ABG pH ABG pO2 ABG HCO3 ABG O2 Saturation ABG Base Excess ABG Hemoglobin Oxyhemoglobin Sodium Potassium Chloride Carbon Dioxide BUN Creatinine Glucose POC Glucose 112 H 132 H 147 H Lactic Acid Calcium Magnesium Iron TIBC Ferritin AST ALT Lactate Dehydrogenase Troponin T C-Reactive Protein Total Protein Albumin Prealbumin Cholesterol LDL Cholesterol Direct HDL Cholesterol Urine WBC (Auto) Vancomycin Trough Coronavirus (PCR) Crossmatch 08/07/19 08/07/19 08/07/19 05:16 05:23 05:23 WBC 30.3 H RBC 2.69 L Hgb 7.1 L Hct 22.2 L MCV 83 L MCH 27 L MCHC RDW 19.1 H Plt Count 650 H Lymph % (Auto) Cross % (Auto) Lymph # Cross # Baso # Seg Neutrophils % Seg Neuts % (Manual) 88.0 H Lymphocytes % (Manual) 5.0 L Monocytes % (Manual) Basophils % (Manual) Nucleated RBC % Seg Neutrophils # Seg Neutrophils # Man 26.7 H Lymphocytes # (Manual) Monocytes # (Manual) 2.1 H Eosinophils # (Manual) Basophils # (Manual) PT INR D-Dimer ABG pH ABG pO2 ABG HCO3 ABG O2 Saturation ABG Base Excess ABG Hemoglobin Oxyhemoglobin Sodium 135 L Potassium 3.4 L Chloride 95.4 L Carbon Dioxide 32 H BUN Creatinine 0.4 L Glucose 120 H POC Glucose 120 H Lactic Acid Calcium 7.7 L Magnesium Iron TIBC Ferritin AST ALT Lactate Dehydrogenase Troponin T C-Reactive Protein Total Protein Albumin Prealbumin Cholesterol LDL Cholesterol Direct HDL Cholesterol Urine WBC (Auto) Vancomycin Trough Coronavirus (PCR) Crossmatch 08/07/19 08/07/19 08/07/19 10:24 10:24 11:10 WBC RBC Hgb Hct MCV MCH MCHC RDW Plt Count Lymph % (Auto) Cross % (Auto) Lymph # Cross # Baso # Seg Neutrophils % Seg Neuts % (Manual) Lymphocytes % (Manual) Monocytes % (Manual) Basophils % (Manual) Nucleated RBC % Seg Neutrophils # Seg Neutrophils # Man Lymphocytes # (Manual) Monocytes # (Manual) Eosinophils # (Manual) Basophils # (Manual) PT INR D-Dimer 1808.06 H ABG pH ABG pO2 73.3 L ABG HCO3 33.9 H ABG O2 Saturation ABG Base Excess 9.0 H ABG Hemoglobin 6.3 L Oxyhemoglobin 94.3 L Sodium Potassium Chloride Carbon Dioxide BUN Creatinine Glucose POC Glucose Lactic Acid Calcium Magnesium Iron TIBC Ferritin AST ALT Lactate Dehydrogenase Troponin T C-Reactive Protein 11.10 H Total Protein Albumin Prealbumin Cholesterol LDL Cholesterol Direct HDL Cholesterol Urine WBC (Auto) Vancomycin Trough Coronavirus (PCR) Crossmatch 08/07/19 08/08/19 08/08/19 12:01 04:41 04:41 WBC 22.1 H RBC 2.82 L Hgb 7.7 L Hct 23.6 L MCV MCH 27 L MCHC RDW 19.1 H Plt Count 722 H Lymph % (Auto) Cross % (Auto) Lymph # Cross # Baso # Seg Neutrophils % Seg Neuts % (Manual) 90.0 H Lymphocytes % (Manual) 3.0 L Monocytes % (Manual) Basophils % (Manual) Nucleated RBC % Seg Neutrophils # Seg Neutrophils # Man 19.9 H Lymphocytes # (Manual) 0.7 L Monocytes # (Manual) 1.3 H Eosinophils # (Manual) Basophils # (Manual) PT INR D-Dimer ABG pH ABG pO2 ABG HCO3 ABG O2 Saturation ABG Base Excess ABG Hemoglobin Oxyhemoglobin Sodium 136 L Potassium Chloride 97.8 L Carbon Dioxide BUN Creatinine 0.3 L Glucose 105 H POC Glucose 130 H Lactic Acid Calcium 7.8 L Magnesium Iron TIBC Ferritin AST ALT Lactate Dehydrogenase Troponin T C-Reactive Protein Total Protein Albumin Prealbumin Cholesterol LDL Cholesterol Direct HDL Cholesterol Urine WBC (Auto) Vancomycin Trough Coronavirus (PCR) Crossmatch 08/08/19 08/08/19 08/09/19 11:46 18:35 00:12 WBC RBC Hgb Hct MCV MCH MCHC RDW Plt Count Lymph % (Auto) Cross % (Auto) Lymph # Cross # Baso # Seg Neutrophils % Seg Neuts % (Manual) Lymphocytes % (Manual) Monocytes % (Manual) Basophils % (Manual) Nucleated RBC % Seg Neutrophils # Seg Neutrophils # Man Lymphocytes # (Manual) Monocytes # (Manual) Eosinophils # (Manual) Basophils # (Manual) PT INR D-Dimer ABG pH ABG pO2 ABG HCO3 ABG O2 Saturation ABG Base Excess ABG Hemoglobin Oxyhemoglobin Sodium Potassium Chloride Carbon Dioxide BUN Creatinine Glucose POC Glucose 117 H 117 H 117 H Lactic Acid Calcium Magnesium Iron TIBC Ferritin AST ALT Lactate Dehydrogenase Troponin T C-Reactive Protein Total Protein Albumin Prealbumin Cholesterol LDL Cholesterol Direct HDL Cholesterol Urine WBC (Auto) Vancomycin Trough Coronavirus (PCR) Crossmatch 08/09/19 08/09/19 08/09/19 05:33 12:22 17:48 WBC RBC Hgb Hct MCV MCH MCHC RDW Plt Count Lymph % (Auto) Cross % (Auto) Lymph # Cross # Baso # Seg Neutrophils % Seg Neuts % (Manual) Lymphocytes % (Manual) Monocytes % (Manual) Basophils % (Manual) Nucleated RBC % Seg Neutrophils # Seg Neutrophils # Man Lymphocytes # (Manual) Monocytes # (Manual) Eosinophils # (Manual) Basophils # (Manual) PT INR D-Dimer ABG pH ABG pO2 ABG HCO3 ABG O2 Saturation ABG Base Excess ABG Hemoglobin Oxyhemoglobin Sodium Potassium Chloride Carbon Dioxide BUN Creatinine Glucose POC Glucose 119 H 133 H 123 H Lactic Acid Calcium Magnesium Iron TIBC Ferritin AST ALT Lactate Dehydrogenase Troponin T C-Reactive Protein Total Protein Albumin Prealbumin Cholesterol LDL Cholesterol Direct HDL Cholesterol Urine WBC (Auto) Vancomycin Trough Coronavirus (PCR) Crossmatch 08/09/19 08/09/19 08/10/19 17:59 18:15 00:02 WBC RBC Hgb 6.7 L Hct 20.4 L MCV MCH MCHC RDW Plt Count Lymph % (Auto) Cross % (Auto) Lymph # Cross # Baso # Seg Neutrophils % Seg Neuts % (Manual) Lymphocytes % (Manual) Monocytes % (Manual) Basophils % (Manual) Nucleated RBC % Seg Neutrophils # Seg Neutrophils # Man Lymphocytes # (Manual) Monocytes # (Manual) Eosinophils # (Manual) Basophils # (Manual) PT INR D-Dimer ABG pH ABG pO2 ABG HCO3 ABG O2 Saturation ABG Base Excess ABG Hemoglobin Oxyhemoglobin Sodium Potassium Chloride Carbon Dioxide BUN Creatinine Glucose POC Glucose 124 H Lactic Acid Calcium Magnesium Iron TIBC Ferritin AST ALT Lactate Dehydrogenase Troponin T C-Reactive Protein Total Protein Albumin Prealbumin Cholesterol LDL Cholesterol Direct HDL Cholesterol Urine WBC (Auto) Vancomycin Trough Coronavirus (PCR) Crossmatch See Detail 08/10/19 08/10/19 08/10/19 05:47 08:00 08:00 WBC 16.9 H RBC 2.94 L Hgb 8.2 L Hct 24.9 L MCV MCH MCHC RDW 17.0 H Plt Count 661 H Lymph % (Auto) Cross % (Auto) Lymph # Cross # Baso # Seg Neutrophils % Seg Neuts % (Manual) Lymphocytes % (Manual) Monocytes % (Manual) Basophils % (Manual) Nucleated RBC % Seg Neutrophils # Seg Neutrophils # Man Lymphocytes # (Manual) Monocytes # (Manual) Eosinophils # (Manual) Basophils # (Manual) PT INR D-Dimer ABG pH ABG pO2 ABG HCO3 ABG O2 Saturation ABG Base Excess ABG Hemoglobin Oxyhemoglobin Sodium Potassium Chloride Carbon Dioxide BUN Creatinine 0.3 L Glucose 116 H POC Glucose 148 H Lactic Acid Calcium 7.7 L Magnesium Iron TIBC Ferritin AST ALT Lactate Dehydrogenase Troponin T C-Reactive Protein Total Protein Albumin Prealbumin Cholesterol LDL Cholesterol Direct HDL Cholesterol Urine WBC (Auto) Vancomycin Trough Coronavirus (PCR) Crossmatch 08/10/19 08/10/19 08/10/19 12:38 18:06 23:56 WBC RBC Hgb Hct MCV MCH MCHC RDW Plt Count Lymph % (Auto) Cross % (Auto) Lymph # Cross # Baso # Seg Neutrophils % Seg Neuts % (Manual) Lymphocytes % (Manual) Monocytes % (Manual) Basophils % (Manual) Nucleated RBC % Seg Neutrophils # Seg Neutrophils # Man Lymphocytes # (Manual) Monocytes # (Manual) Eosinophils # (Manual) Basophils # (Manual) PT INR D-Dimer ABG pH ABG pO2 ABG HCO3 ABG O2 Saturation ABG Base Excess ABG Hemoglobin Oxyhemoglobin Sodium Potassium Chloride Carbon Dioxide BUN Creatinine Glucose POC Glucose 113 H 126 H 115 H Lactic Acid Calcium Magnesium Iron TIBC Ferritin AST ALT Lactate Dehydrogenase Troponin T C-Reactive Protein Total Protein Albumin Prealbumin Cholesterol LDL Cholesterol Direct HDL Cholesterol Urine WBC (Auto) Vancomycin Trough Coronavirus (PCR) Crossmatch 08/10/19 08/11/19 08/12/19 Unknown 18:10 03:30 WBC 14.4 H RBC 2.58 L Hgb 7.4 L Hct 22.1 L MCV MCH MCHC RDW 17.4 H Plt Count 786 H Lymph % (Auto) Cross % (Auto) Lymph # Cross # Baso # Seg Neutrophils % Seg Neuts % (Manual) Lymphocytes % (Manual) Monocytes % (Manual) Basophils % (Manual) Nucleated RBC % Seg Neutrophils # Seg Neutrophils # Man Lymphocytes # (Manual) Monocytes # (Manual) Eosinophils # (Manual) Basophils # (Manual) PT INR D-Dimer ABG pH ABG pO2 ABG HCO3 ABG O2 Saturation ABG Base Excess ABG Hemoglobin Oxyhemoglobin Sodium Potassium Chloride Carbon Dioxide BUN Creatinine Glucose POC Glucose 106 H Lactic Acid Calcium Magnesium Iron TIBC Ferritin AST ALT Lactate Dehydrogenase Troponin T C-Reactive Protein Total Protein Albumin Prealbumin Cholesterol LDL Cholesterol Direct HDL Cholesterol Urine WBC (Auto) Vancomycin Trough Coronavirus (PCR) Positive A Crossmatch 08/12/19 08/12/19 08/13/19 03:30 12:08 05:25 WBC RBC Hgb Hct MCV MCH MCHC RDW Plt Count Lymph % (Auto) Cross % (Auto) Lymph # Cross # Baso # Seg Neutrophils % Seg Neuts % (Manual) Lymphocytes % (Manual) Monocytes % (Manual) Basophils % (Manual) Nucleated RBC % Seg Neutrophils # Seg Neutrophils # Man Lymphocytes # (Manual) Monocytes # (Manual) Eosinophils # (Manual) Basophils # (Manual) PT INR D-Dimer ABG pH ABG pO2 ABG HCO3 ABG O2 Saturation ABG Base Excess ABG Hemoglobin Oxyhemoglobin Sodium Potassium Chloride Carbon Dioxide BUN 7 L Creatinine 0.3 L Glucose 117 H POC Glucose 112 H 126 H Lactic Acid Calcium 7.8 L Magnesium Iron TIBC Ferritin AST ALT Lactate Dehydrogenase Troponin T C-Reactive Protein Total Protein Albumin Prealbumin Cholesterol LDL Cholesterol Direct HDL Cholesterol Urine WBC (Auto) Vancomycin Trough Coronavirus (PCR) Crossmatch 08/13/19 08/13/19 08/13/19 11:36 17:10 19:06 WBC RBC Hgb Hct MCV MCH MCHC RDW Plt Count Lymph % (Auto) Cross % (Auto) Lymph # Cross # Baso # Seg Neutrophils % Seg Neuts % (Manual) Lymphocytes % (Manual) Monocytes % (Manual) Basophils % (Manual) Nucleated RBC % Seg Neutrophils # Seg Neutrophils # Man Lymphocytes # (Manual) Monocytes # (Manual) Eosinophils # (Manual) Basophils # (Manual) PT INR D-Dimer ABG pH ABG pO2 105.0 H ABG HCO3 28.5 H ABG O2 Saturation ABG Base Excess 3.5 H ABG Hemoglobin 7.8 L Oxyhemoglobin Sodium Potassium Chloride Carbon Dioxide BUN Creatinine Glucose POC Glucose 143 H 107 H Lactic Acid Calcium Magnesium Iron TIBC Ferritin AST ALT Lactate Dehydrogenase Troponin T C-Reactive Protein Total Protein Albumin Prealbumin Cholesterol LDL Cholesterol Direct HDL Cholesterol Urine WBC (Auto) Vancomycin Trough Coronavirus (PCR) Crossmatch 08/13/19 08/14/19 08/14/19 23:23 05:00 05:00 WBC 14.3 H RBC 2.76 L Hgb 7.8 L Hct 23.9 L MCV MCH MCHC RDW 18.7 H Plt Count 896 H Lymph % (Auto) Cross % (Auto) Lymph # Cross # Baso # Seg Neutrophils % Seg Neuts % (Manual) Lymphocytes % (Manual) Monocytes % (Manual) Basophils % (Manual) Nucleated RBC % Seg Neutrophils # Seg Neutrophils # Man Lymphocytes # (Manual) Monocytes # (Manual) Eosinophils # (Manual) Basophils # (Manual) PT INR D-Dimer ABG pH ABG pO2 ABG HCO3 ABG O2 Saturation ABG Base Excess ABG Hemoglobin Oxyhemoglobin Sodium Potassium Chloride Carbon Dioxide BUN 6 L Creatinine 0.3 L Glucose POC Glucose 125 H Lactic Acid Calcium 8.2 L Magnesium Iron TIBC Ferritin AST ALT Lactate Dehydrogenase Troponin T C-Reactive Protein Total Protein Albumin Prealbumin Cholesterol LDL Cholesterol Direct HDL Cholesterol Urine WBC (Auto) Vancomycin Trough Coronavirus (PCR) Crossmatch 08/14/19 08/15/19 08/15/19 05:07 00:25 05:42 WBC RBC Hgb Hct MCV MCH MCHC RDW Plt Count Lymph % (Auto) Cross % (Auto) Lymph # Cross # Baso # Seg Neutrophils % Seg Neuts % (Manual) Lymphocytes % (Manual) Monocytes % (Manual) Basophils % (Manual) Nucleated RBC % Seg Neutrophils # Seg Neutrophils # Man Lymphocytes # (Manual) Monocytes # (Manual) Eosinophils # (Manual) Basophils # (Manual) PT INR D-Dimer ABG pH ABG pO2 ABG HCO3 ABG O2 Saturation ABG Base Excess ABG Hemoglobin Oxyhemoglobin Sodium Potassium Chloride Carbon Dioxide BUN Creatinine Glucose POC Glucose 128 H 117 H 115 H Lactic Acid Calcium Magnesium Iron TIBC Ferritin AST ALT Lactate Dehydrogenase Troponin T C-Reactive Protein Total Protein Albumin Prealbumin Cholesterol LDL Cholesterol Direct HDL Cholesterol Urine WBC (Auto) Vancomycin Trough Coronavirus (PCR) Crossmatch 08/15/19 08/15/19 08/15/19 06:10 06:10 06:10 WBC 11.6 H RBC 2.68 L Hgb 7.7 L Hct 23.3 L MCV MCH MCHC RDW 19.2 H Plt Count 885 H Lymph % (Auto) Cross % (Auto) Lymph # Cross # Baso # Seg Neutrophils % Seg Neuts % (Manual) Lymphocytes % (Manual) Monocytes % (Manual) Basophils % (Manual) Nucleated RBC % Seg Neutrophils # Seg Neutrophils # Man Lymphocytes # (Manual) Monocytes # (Manual) Eosinophils # (Manual) Basophils # (Manual) PT INR D-Dimer ABG pH ABG pO2 ABG HCO3 ABG O2 Saturation ABG Base Excess ABG Hemoglobin Oxyhemoglobin Sodium Potassium Chloride Carbon Dioxide BUN 6 L Creatinine 0.3 L Glucose 107 H POC Glucose Lactic Acid Calcium 8.2 L Magnesium 1.50 L Iron TIBC Ferritin AST ALT Lactate Dehydrogenase Troponin T C-Reactive Protein Total Protein Albumin Prealbumin Cholesterol LDL Cholesterol Direct HDL Cholesterol Urine WBC (Auto) Vancomycin Trough Coronavirus (PCR) Crossmatch 08/15/19 08/16/19 08/16/19 12:12 00:05 05:00 WBC 13.3 H RBC 2.87 L Hgb 8.1 L Hct 24.9 L MCV MCH MCHC RDW 18.7 H Plt Count 962 H Lymph % (Auto) Cross % (Auto) Lymph # Cross # Baso # Seg Neutrophils % Seg Neuts % (Manual) Lymphocytes % (Manual) Monocytes % (Manual) Basophils % (Manual) Nucleated RBC % Seg Neutrophils # Seg Neutrophils # Man Lymphocytes # (Manual) Monocytes # (Manual) Eosinophils # (Manual) Basophils # (Manual) PT INR D-Dimer ABG pH ABG pO2 ABG HCO3 ABG O2 Saturation ABG Base Excess ABG Hemoglobin Oxyhemoglobin Sodium Potassium Chloride Carbon Dioxide BUN Creatinine Glucose POC Glucose 112 H 111 H Lactic Acid Calcium Magnesium Iron TIBC Ferritin AST ALT Lactate Dehydrogenase Troponin T C-Reactive Protein Total Protein Albumin Prealbumin Cholesterol LDL Cholesterol Direct HDL Cholesterol Urine WBC (Auto) Vancomycin Trough Coronavirus (PCR) Crossmatch 08/16/19 08/16/19 08/16/19 05:00 05:00 23:35 WBC RBC Hgb Hct MCV MCH MCHC RDW Plt Count Lymph % (Auto) Cross % (Auto) Lymph # Cross # Baso # Seg Neutrophils % Seg Neuts % (Manual) Lymphocytes % (Manual) Monocytes % (Manual) Basophils % (Manual) Nucleated RBC % Seg Neutrophils # Seg Neutrophils # Man Lymphocytes # (Manual) Monocytes # (Manual) Eosinophils # (Manual) Basophils # (Manual) PT INR D-Dimer ABG pH ABG pO2 ABG HCO3 ABG O2 Saturation ABG Base Excess ABG Hemoglobin Oxyhemoglobin Sodium 135 L Potassium Chloride Carbon Dioxide BUN 6 L Creatinine 0.3 L Glucose POC Glucose 108 H Lactic Acid Calcium 8.2 L Magnesium Iron TIBC Ferritin AST ALT Lactate Dehydrogenase Troponin T C-Reactive Protein 2.70 H Total Protein Albumin 2.1 L Prealbumin Cholesterol LDL Cholesterol Direct HDL Cholesterol Urine WBC (Auto) Vancomycin Trough Coronavirus (PCR) Crossmatch 08/17/19 08/17/19 08/17/19 05:15 20:20 23:42 WBC RBC Hgb Hct MCV MCH MCHC RDW Plt Count Lymph % (Auto) Cross % (Auto) Lymph # Cross # Baso # Seg Neutrophils % Seg Neuts % (Manual) Lymphocytes % (Manual) Monocytes % (Manual) Basophils % (Manual) Nucleated RBC % Seg Neutrophils # Seg Neutrophils # Man Lymphocytes # (Manual) Monocytes # (Manual) Eosinophils # (Manual) Basophils # (Manual) PT INR D-Dimer ABG pH ABG pO2 ABG HCO3 27.8 H ABG O2 Saturation ABG Base Excess ABG Hemoglobin 11.4 L Oxyhemoglobin 94.6 L Sodium Potassium Chloride Carbon Dioxide BUN Creatinine Glucose POC Glucose 138 H 132 H Lactic Acid Calcium Magnesium Iron TIBC Ferritin AST ALT Lactate Dehydrogenase Troponin T C-Reactive Protein Total Protein Albumin Prealbumin Cholesterol LDL Cholesterol Direct HDL Cholesterol Urine WBC (Auto) Vancomycin Trough Coronavirus (PCR) Crossmatch 08/18/19 08/18/19 08/18/19 06:00 06:00 12:02 WBC 19.7 H RBC 3.30 L Hgb 9.3 L Hct 28.5 L MCV MCH MCHC RDW 18.9 H Plt Count 923 H Lymph % (Auto) Cross % (Auto) Lymph # Cross # Baso # Seg Neutrophils % Seg Neuts % (Manual) Lymphocytes % (Manual) Monocytes % (Manual) Basophils % (Manual) Nucleated RBC % Seg Neutrophils # Seg Neutrophils # Man Lymphocytes # (Manual) Monocytes # (Manual) Eosinophils # (Manual) Basophils # (Manual) PT INR D-Dimer ABG pH ABG pO2 ABG HCO3 ABG O2 Saturation ABG Base Excess ABG Hemoglobin Oxyhemoglobin Sodium 136 L Potassium Chloride Carbon Dioxide BUN Creatinine 0.4 L Glucose 71 L POC Glucose 123 H Lactic Acid Calcium Magnesium Iron TIBC Ferritin AST ALT Lactate Dehydrogenase Troponin T C-Reactive Protein Total Protein Albumin Prealbumin Cholesterol LDL Cholesterol Direct HDL Cholesterol Urine WBC (Auto) Vancomycin Trough Coronavirus (PCR) Crossmatch 08/18/19 08/18/19 08/19/19 18:23 23:16 04:57 WBC RBC Hgb Hct MCV MCH MCHC RDW Plt Count Lymph % (Auto) Cross % (Auto) Lymph # Cross # Baso # Seg Neutrophils % Seg Neuts % (Manual) Lymphocytes % (Manual) Monocytes % (Manual) Basophils % (Manual) Nucleated RBC % Seg Neutrophils # Seg Neutrophils # Man Lymphocytes # (Manual) Monocytes # (Manual) Eosinophils # (Manual) Basophils # (Manual) PT INR D-Dimer ABG pH ABG pO2 ABG HCO3 ABG O2 Saturation ABG Base Excess ABG Hemoglobin Oxyhemoglobin Sodium Potassium Chloride Carbon Dioxide BUN Creatinine Glucose POC Glucose 140 H 159 H 134 H Lactic Acid Calcium Magnesium Iron TIBC Ferritin AST ALT Lactate Dehydrogenase Troponin T C-Reactive Protein Total Protein Albumin Prealbumin Cholesterol LDL Cholesterol Direct HDL Cholesterol Urine WBC (Auto) Vancomycin Trough Coronavirus (PCR) Crossmatch 08/19/19 08/19/19 08/19/19 07:44 08:17 18:15 WBC 30.5 H RBC 2.87 L Hgb 7.9 L Hct 24.5 L MCV MCH MCHC RDW 18.8 H Plt Count 772 H Lymph % (Auto) Cross % (Auto) Lymph # Cross # Baso # Seg Neutrophils % Seg Neuts % (Manual) 89.0 H Lymphocytes % (Manual) 4.0 L Monocytes % (Manual) Basophils % (Manual) 2.0 H Nucleated RBC % Seg Neutrophils # Seg Neutrophils # Man 27.1 H Lymphocytes # (Manual) Monocytes # (Manual) 0.9 H Eosinophils # (Manual) 0.6 H Basophils # (Manual) 0.6 H PT INR D-Dimer ABG pH ABG pO2 ABG HCO3 ABG O2 Saturation ABG Base Excess ABG Hemoglobin Oxyhemoglobin Sodium 136 L Potassium Chloride Carbon Dioxide BUN Creatinine 0.3 L Glucose POC Glucose 106 H Lactic Acid Calcium 8.2 L Magnesium Iron TIBC Ferritin AST ALT Lactate Dehydrogenase Troponin T C-Reactive Protein Total Protein Albumin Prealbumin Cholesterol LDL Cholesterol Direct HDL Cholesterol Urine WBC (Auto) Vancomycin Trough Coronavirus (PCR) Crossmatch 08/19/19 08/20/19 08/20/19 23:46 06:20 18:34 WBC RBC Hgb Hct MCV MCH MCHC RDW Plt Count Lymph % (Auto) Cross % (Auto) Lymph # Cross # Baso # Seg Neutrophils % Seg Neuts % (Manual) Lymphocytes % (Manual) Monocytes % (Manual) Basophils % (Manual) Nucleated RBC % Seg Neutrophils # Seg Neutrophils # Man Lymphocytes # (Manual) Monocytes # (Manual) Eosinophils # (Manual) Basophils # (Manual) PT INR D-Dimer ABG pH ABG pO2 ABG HCO3 ABG O2 Saturation ABG Base Excess ABG Hemoglobin Oxyhemoglobin Sodium Potassium Chloride Carbon Dioxide BUN Creatinine Glucose POC Glucose 144 H 115 H 125 H Lactic Acid Calcium Magnesium Iron TIBC Ferritin AST ALT Lactate Dehydrogenase Troponin T C-Reactive Protein Total Protein Albumin Prealbumin Cholesterol LDL Cholesterol Direct HDL Cholesterol Urine WBC (Auto) Vancomycin Trough Coronavirus (PCR) Crossmatch 08/20/19 08/20/19 08/21/19 Unknown Unknown 11:56 WBC 18.7 H RBC 2.70 L Hgb 7.6 L Hct 23.1 L MCV MCH MCHC RDW 18.9 H Plt Count 690 H Lymph % (Auto) Cross % (Auto) Lymph # Cross # Baso # Seg Neutrophils % Seg Neuts % (Manual) Lymphocytes % (Manual) Monocytes % (Manual) Basophils % (Manual) Nucleated RBC % Seg Neutrophils # Seg Neutrophils # Man Lymphocytes # (Manual) Monocytes # (Manual) Eosinophils # (Manual) Basophils # (Manual) PT INR D-Dimer ABG pH ABG pO2 ABG HCO3 ABG O2 Saturation ABG Base Excess ABG Hemoglobin Oxyhemoglobin Sodium 134 L Potassium Chloride 97.9 L Carbon Dioxide BUN Creatinine 0.3 L Glucose 115 H POC Glucose 116 H Lactic Acid Calcium 8.2 L Magnesium Iron TIBC Ferritin AST ALT Lactate Dehydrogenase Troponin T C-Reactive Protein Total Protein Albumin Prealbumin Cholesterol LDL Cholesterol Direct HDL Cholesterol Urine WBC (Auto) Vancomycin Trough Coronavirus (PCR) Crossmatch 08/21/19 08/22/19 08/22/19 18:14 00:31 05:53 WBC RBC Hgb Hct MCV MCH MCHC RDW Plt Count Lymph % (Auto) Cross % (Auto) Lymph # Cross # Baso # Seg Neutrophils % Seg Neuts % (Manual) Lymphocytes % (Manual) Monocytes % (Manual) Basophils % (Manual) Nucleated RBC % Seg Neutrophils # Seg Neutrophils # Man Lymphocytes # (Manual) Monocytes # (Manual) Eosinophils # (Manual) Basophils # (Manual) PT INR D-Dimer ABG pH ABG pO2 ABG HCO3 ABG O2 Saturation ABG Base Excess ABG Hemoglobin Oxyhemoglobin Sodium Potassium Chloride Carbon Dioxide BUN Creatinine Glucose POC Glucose 113 H 106 H 109 H Lactic Acid Calcium Magnesium Iron TIBC Ferritin AST ALT Lactate Dehydrogenase Troponin T C-Reactive Protein Total Protein Albumin Prealbumin Cholesterol LDL Cholesterol Direct HDL Cholesterol Urine WBC (Auto) Vancomycin Trough Coronavirus (PCR) Crossmatch 08/22/19 08/23/19 08/23/19 18:35 00:18 06:00 WBC 12.3 H RBC 2.92 L Hgb 8.0 L Hct 24.6 L MCV MCH MCHC RDW 18.5 H Plt Count 661 H Lymph % (Auto) 11.7 L Cross % (Auto) 9.2 H Lymph # Cross # 1.1 H Baso # Seg Neutrophils % 75.6 H Seg Neuts % (Manual) Lymphocytes % (Manual) Monocytes % (Manual) Basophils % (Manual) Nucleated RBC % Seg Neutrophils # 9.3 H Seg Neutrophils # Man Lymphocytes # (Manual) Monocytes # (Manual) Eosinophils # (Manual) Basophils # (Manual) PT INR D-Dimer ABG pH ABG pO2 ABG HCO3 ABG O2 Saturation ABG Base Excess ABG Hemoglobin Oxyhemoglobin Sodium Potassium Chloride Carbon Dioxide BUN Creatinine Glucose POC Glucose 130 H 124 H Lactic Acid Calcium Magnesium Iron TIBC Ferritin AST ALT Lactate Dehydrogenase Troponin T C-Reactive Protein Total Protein Albumin Prealbumin Cholesterol LDL Cholesterol Direct HDL Cholesterol Urine WBC (Auto) Vancomycin Trough Coronavirus (PCR) Crossmatch 08/23/19 08/23/19 08/24/19 06:09 17:46 00:04 WBC RBC Hgb Hct MCV MCH MCHC RDW Plt Count Lymph % (Auto) Cross % (Auto) Lymph # Cross # Baso # Seg Neutrophils % Seg Neuts % (Manual) Lymphocytes % (Manual) Monocytes % (Manual) Basophils % (Manual) Nucleated RBC % Seg Neutrophils # Seg Neutrophils # Man Lymphocytes # (Manual) Monocytes # (Manual) Eosinophils # (Manual) Basophils # (Manual) PT INR D-Dimer ABG pH ABG pO2 ABG HCO3 ABG O2 Saturation ABG Base Excess ABG Hemoglobin Oxyhemoglobin Sodium Potassium Chloride Carbon Dioxide BUN Creatinine Glucose POC Glucose 117 H 125 H 113 H Lactic Acid Calcium Magnesium Iron TIBC Ferritin AST ALT Lactate Dehydrogenase Troponin T C-Reactive Protein Total Protein Albumin Prealbumin Cholesterol LDL Cholesterol Direct HDL Cholesterol Urine WBC (Auto) Vancomycin Trough Coronavirus (PCR) Crossmatch 08/24/19 08/24/19 08/24/19 05:34 12:28 17:32 WBC RBC Hgb Hct MCV MCH MCHC RDW Plt Count Lymph % (Auto) Cross % (Auto) Lymph # Cross # Baso # Seg Neutrophils % Seg Neuts % (Manual) Lymphocytes % (Manual) Monocytes % (Manual) Basophils % (Manual) Nucleated RBC % Seg Neutrophils # Seg Neutrophils # Man Lymphocytes # (Manual) Monocytes # (Manual) Eosinophils # (Manual) Basophils # (Manual) PT INR D-Dimer ABG pH ABG pO2 ABG HCO3 ABG O2 Saturation ABG Base Excess ABG Hemoglobin Oxyhemoglobin Sodium Potassium Chloride Carbon Dioxide BUN Creatinine Glucose POC Glucose 128 H 127 H 116 H Lactic Acid Calcium Magnesium Iron TIBC Ferritin AST ALT Lactate Dehydrogenase Troponin T C-Reactive Protein Total Protein Albumin Prealbumin Cholesterol LDL Cholesterol Direct HDL Cholesterol Urine WBC (Auto) Vancomycin Trough Coronavirus (PCR) Crossmatch Allied health notes reviewed: nursing
[2019-08-25] MEDS: INSULIN LISPRO 100 UNIT/ML SUB-Q SCH ×4 (00:04→17:43)
--- NOTE | 2019-08-25 06:39 | Progress Note ---
Assessment and Plan S/p Cardiopulmonary arrest with ROSC Severe Sepsis with septic shock. Acute hypoxemic respiratory failure on MVS COVID-19 positive with elevated markers Bilateral pneumonia Elevated LFTs. Oropharyngeal dysphagia s/p PEG Acute kidney injury Decubitus ulcers-unstageable Moderate protein calorie malnutriton [id number] metabolic acidosis Leukocytosis Thrombocytosis-worse Microcytic anemia Continue with PSV as tolerated, full support at night Will continue to assess on a daily basis suitability for liberation from MVS while awaiting COVID negative testing. Repeat COVID testing negative - re-consulted surgery for trach and PEG placement Continue with NGT feeding with aspiration precautions Complete course of antibiotics per ID- currently on Levofloxacin Supportive transfusions to keep HgB >7g/dL Continue all care as documented -Continue to coordinate sedation interruption( RN) and SBT( RT) today to optimize chances of success with weaning trial -ABG, CXR prn - continue airborne, droplet and contact isolation for COVID-19 - continue wound care per WCT - sedation prn for target RASS 0 to -1 - continue to wean supplemental oxygen for target O2 sat's > 90% - Daily SAT's and SBT assessment as tolerated - VAP bundle addressed - continue lung protective strategies - continue bronchodilators with pulmonary hygiene per RT - wean per pulmonary driven protocols otherwise - accuchecks with glycemic control per SSI (While critically ill target blood glucose of 140-180 mg/dL; avoid hypoglycemia) - continue to avoid benzodiazepines, reduce the possibility of delirium - prn analgesia per CPOT score - Maintenance of sleep-wake cycle, avoid delirium - continue enteral nutritional support at goal rate as tolerated - VTE prophylaxis-Enoxaparin -Stress ulcer prophylaxis- Famotidine - PT/OT/ROM exercises - continue mobility protocol, off loading and skin assessment for pressure ulcer prevention - Monitor hemodynamics closely -Wright catheter in this critically ill patient with unstageable sacral decubitus ulcer - continue other care per attending / other consultants - discharge planning ongoing concurrently .... Re-evaluate in am & prn CONDITION: CRITICAL PROGNOSIS: GUARDED CODE STATUS: DNAR Called his family to discuss goals of care, wants us to continue to treat aggressively at this time. The high probability of a clinically significant, sudden or life-threatening deterioration of the [respiratory ,cardiovascular, neurology] system(s) required my full and direct attention, intervention and personal management. The aggregate critical care time was [31] minutes without overlap. Time includes spent on; [x] Data Review and interpretation [x] Patient assessment and monitoring of vital signs [x] Documentation [x] Medication orders and management Subjective Date of service: 08/25/19 Principal diagnosis: Bilateral pneumonia, severe sepsis with septic shock, encephalopathy Interval history: The patient is a 69-year-old male with CVA, hypertension, dementia, schizop hrenia, alcohol use disorder was admitted to the emergency room after being brought in by EMS with progressive shortness of breath and unresponsiveness. He was noted to have agonal breathing and a faint pulse requiring CPR. Patient was intubated and brought to the hospital. It seems, patient was on home hospice. Currently, remains critically ill, intubated, on mechanical ventilation. His COVID test resulted positive. LATE ENTRY FOR 08/22/2019 Patient is seen today for: s/p cardiopulmonary arrest with ROSC; Ac hypoxemic Resp failure on MVS; Severe sepsis with Shock; Bilateral Pneumonia; POSITIVE coronavirus-19 infection. Seen and examined at bedside; 24hour events reviewed; nursing and respiratory care staff consulted; no adverse overnight events reported to me; resting in bed.No fevers; On MVS , tolerating daily PSV trials at this time; on fentanyl at 1mcg, off vasopressors Tolerating tube feedings, Mental status changes persist, will spontaneously open eyes COVID negative Objective Vital Signs - 12hr 08/24/19 08/24/19 08/24/19 19:04 20:00 20:34 Temperature 98.5 F Pulse Rate 96 H 89 Pulse Rate [ 99 H From Monitor] Respiratory 18 Rate Blood Pressure 109/70 95/49 105/62 O2 Sat by Pulse 100 100 100 Oximetry 08/24/19 08/24/19 08/24/19 21:00 21:52 22:00 Temperature Pulse Rate 92 H 93 H 97 H Pulse Rate [ From Monitor] Respiratory 18 19 Rate Blood Pressure 96/54 97/50 94/55 O2 Sat by Pulse 100 100 Oximetry 08/24/19 08/24/19 08/24/19 23:00 23:05 23:37 Temperature 98.6 F Pulse Rate 84 91 H Pulse Rate [ From Monitor] Respiratory 19 16 Rate Blood Pressure 92/49 107/60 O2 Sat by Pulse 100 100 Oximetry 08/25/19 08/25/19 08/25/19 00:00 00:07 01:00 Temperature Pulse Rate 94 H 93 H Pulse Rate [ 88 From Monitor] Respiratory 19 17 Rate Blood Pressure 89/56 89/54 90/50 O2 Sat by Pulse 100 100 100 Oximetry 08/25/19 08/25/19 08/25/19 02:00 03:00 03:30 Temperature 100.1 F H Pulse Rate 95 H 94 H Pulse Rate [ From Monitor] Respiratory 19 17 Rate Blood Pressure 82/52 95/54 O2 Sat by Pulse 100 100 Oximetry 08/25/19 08/25/19 08/25/19 04:00 04:01 04:15 Temperature Pulse Rate 105 H 91 H 104 H Pulse Rate [ 105 H From Monitor] Respiratory 18 13 Rate Blood Pressure 99/52 120/82 O2 Sat by Pulse 100 99 Oximetry 08/25/19 08/25/19 05:00 06:00 Temperature Pulse Rate 102 H 111 H Pulse Rate [ From Monitor] Respiratory 18 18 Rate Blood Pressure 107/66 89/55 O2 Sat by Pulse 99 100 Oximetry Constitutional: appears uncomfortable, other (eelderly and chronically ill looking AAM, normocep[krystina;ic with mildly increased respiratory effort at rest) Eyes: non-icteric ENT: oropharynx moist, other (ETT 24 cm RUTH) Neck: supple, no lymphadenopathy, no JVD Effort: mildly labored Ascultation: Bilateral: diminished breath sounds, rhonchi Percussion: Bilateral: not dull Cardiovascular: regular rate and rhythm Gastrointestinal: normoactive bowel sounds, soft, non-tender, non-distended, other (+ PEG tube with mild TF leakage) Integumentary: decubitus ulcer (sacral) Extremities: no cyanosis, no edema, pink and warm, pulses normal Neurologic: pupils equal and round, unable to assess Psychiatric: other (Unable to assess re: AMS) CBC and BMP: 08/23/19 06:00 08/20/19 Unknown ABG, PT/INR, D-dimer: ABG ABG pH 7.405 pH Units (7.350-7.450) 08/17/19 20:20 ABG pCO2 45.3 mm Hg 08/17/19 20:20 ABG pO2 84.2 mm Hg (80.0-90.0) 08/17/19 20:20 ABG O2 Saturation 96.9 % (95.0-99.0) 08/17/19 20:20 PT/INR, D-dimer PT 16.0 Sec. (12.2-14.9) H 07/03/19 22:20 INR 1.26 (0.87-1.13) H 07/03/19 22:20 D-Dimer 1808.06 ng/mlDDU (0-234) H 08/07/19 10:24 Abnormal lab findings: Abnormal Labs 07/03/19 07/03/19 07/03/19 19:57 21:10 21:13 WBC RBC Hgb Hct MCV MCH MCHC RDW Plt Count Lymph % (Auto) [place] % (Auto) Lymph # Blair # Baso # Seg Neutrophils % Seg Neuts % (Manual) Lymphocytes % (Manual) Monocytes % (Manual) Basophils % (Manual) Nucleated RBC % Seg Neutrophils # Seg Neutrophils # Man Lymphocytes # (Manual) Monocytes # (Manual) Eosinophils # (Manual) Basophils # (Manual) PT INR D-Dimer ABG pH 7.238 L ABG pO2 210.8 H ABG HCO3 15.4 L ABG O2 Saturation 99.2 H ABG Base Excess -11.1 L ABG Hemoglobin 8.0 L Oxyhemoglobin Sodium 124 L Potassium Chloride 92.9 L Carbon Dioxide 10 L BUN 23 H Creatinine 0.5 L Glucose 118 H POC Glucose Lactic Acid Calcium 7.0 L Magnesium Iron TIBC Ferritin AST 70 H ALT 88 H Lactate Dehydrogenase Troponin T 0.032 H C-Reactive Protein Total Protein 5.0 L Albumin 1.8 L Prealbumin Cholesterol 47 L LDL Cholesterol Direct 25 L HDL Cholesterol 20 L Urine WBC (Auto) 12.0 H Vancomycin Trough Coronavirus (PCR) Crossmatch 07/03/19 07/03/19 07/03/19 22:20 22:20 22:20 WBC 30.5 H RBC 2.96 L Hgb 7.7 L Hct 23.9 L MCV 81 L MCH 26 L MCHC RDW 18.6 H Plt Count 459 H Lymph % (Auto) [place] % (Auto) Lymph # [place] # Baso # Seg Neutrophils % Seg Neuts % (Manual) 93.0 H Lymphocytes % (Manual) 0.5 L Monocytes % (Manual) Basophils % (Manual) Nucleated RBC % Seg Neutrophils # Seg Neutrophils # Man 28.4 H Lymphocytes # (Manual) 0.2 L Monocytes # (Manual) Eosinophils # (Manual) Basophils # (Manual) PT 16.0 H INR 1.26 H D-Dimer ABG pH ABG pO2 ABG HCO3 ABG O2 Saturation ABG Base Excess ABG Hemoglobin Oxyhemoglobin Sodium Potassium Chloride Carbon Dioxide BUN Creatinine Glucose POC Glucose Lactic Acid 6.90 H* Calcium Magnesium Iron TIBC Ferritin AST ALT Lactate Dehydrogenase Troponin T C-Reactive Protein Total Protein Albumin Prealbumin Cholesterol LDL Cholesterol Direct HDL Cholesterol Urine WBC (Auto) Vancomycin Trough Coronavirus (PCR) Crossmatch 07/03/19 07/04/19 07/04/19 23:58 05:15 07:05 WBC 17.1 H RBC 3.22 L Hgb 8.3 L Hct 25.4 L MCV 79 L MCH 26 L MCHC RDW 18.6 H Plt Count Lymph % (Auto) [place] % (Auto) Lymph # [place] # Baso # Seg Neutrophils % Seg Neuts % (Manual) 74.0 H Lymphocytes % (Manual) 0 L Monocytes % (Manual) Basophils % (Manual) Nucleated RBC % Seg Neutrophils # Seg Neutrophils # Man 12.7 H Lymphocytes # (Manual) 0.0 L Monocytes # (Manual) Eosinophils # (Manual) Basophils # (Manual) PT INR D-Dimer ABG pH 7.310 L ABG pO2 73.2 L ABG HCO3 17.8 L ABG O2 Saturation 93.8 L ABG Base Excess -7.7 L ABG Hemoglobin 9.6 L Oxyhemoglobin 92.3 L Sodium Potassium Chloride Carbon Dioxide BUN Creatinine Glucose POC Glucose Lactic Acid 7.10 H* Calcium Magnesium Iron TIBC Ferritin AST ALT Lactate Dehydrogenase Troponin T C-Reactive Protein Total Protein Albumin Prealbumin Cholesterol LDL Cholesterol Direct HDL Cholesterol Urine WBC (Auto) Vancomycin Trough Coronavirus (PCR) Crossmatch 07/04/19 07/04/19 07/04/19 07:05 07:05 07:05 WBC RBC Hgb Hct MCV MCH MCHC RDW Plt Count Lymph % (Auto) [place] % (Auto) Lymph # [place] # Baso # Seg Neutrophils % Seg Neuts % (Manual) Lymphocytes % (Manual) Monocytes % (Manual) Basophils % (Manual) Nucleated RBC % Seg Neutrophils # Seg Neutrophils # Man Lymphocytes # (Manual) Monocytes # (Manual) Eosinophils # (Manual) Basophils # (Manual) PT INR D-Dimer ABG pH ABG pO2 ABG HCO3 ABG O2 Saturation ABG Base Excess ABG Hemoglobin Oxyhemoglobin Sodium 120 L Potassium 5.1 H Chloride 90.0 L Carbon Dioxide 14 L BUN 26 H Creatinine 0.5 L Glucose POC Glucose Lactic Acid 3.30 H* Calcium 8.0 L Magnesium Iron 9 L TIBC 97 L Ferritin AST 73 H ALT 91 H Lactate Dehydrogenase Troponin T C-Reactive Protein Total Protein 5.5 L Albumin 2.0 L Prealbumin Cholesterol LDL Cholesterol Direct HDL Cholesterol Urine WBC (Auto) Vancomycin Trough Coronavirus (PCR) Crossmatch 07/04/19 07/04/19 07/04/19 09:39 09:39 09:39 WBC RBC Hgb Hct MCV MCH MCHC RDW Plt Count Lymph % (Auto) [place] % (Auto) Lymph # [place] # Baso # Seg Neutrophils % Seg Neuts % (Manual) Lymphocytes % (Manual) Monocytes % (Manual) Basophils % (Manual) Nucleated RBC % Seg Neutrophils # Seg Neutrophils # Man Lymphocytes # (Manual) Monocytes # (Manual) Eosinophils # (Manual) Basophils # (Manual) PT INR D-Dimer 1419.14 H ABG pH ABG pO2 ABG HCO3 ABG O2 Saturation ABG Base Excess ABG Hemoglobin Oxyhemoglobin Sodium Potassium Chloride Carbon Dioxide BUN Creatinine Glucose POC Glucose Lactic Acid Calcium Magnesium Iron TIBC Ferritin 1719.0 H AST ALT Lactate Dehydrogenase 234 H Troponin T C-Reactive Protein 15.50 H Total Protein Albumin Prealbumin Cholesterol LDL Cholesterol Direct HDL Cholesterol Urine WBC (Auto) Vancomycin Trough Coronavirus (PCR) Crossmatch 07/04/19 07/04/19 07/04/19 10:09 18:08 18:28 WBC RBC Hgb Hct MCV MCH MCHC RDW Plt Count Lymph % (Auto) [place] % (Auto) Lymph # [place] # Baso # Seg Neutrophils % Seg Neuts % (Manual) Lymphocytes % (Manual) Monocytes % (Manual) Basophils % (Manual) Nucleated RBC % Seg Neutrophils # Seg Neutrophils # Man Lymphocytes # (Manual) Monocytes # (Manual) Eosinophils # (Manual) Basophils # (Manual) PT INR D-Dimer ABG pH ABG pO2 ABG HCO3 ABG O2 Saturation ABG Base Excess ABG Hemoglobin Oxyhemoglobin Sodium 117 L* Potassium 5.6 H Chloride 90.3 L Carbon Dioxide 16 L BUN 28 H Creatinine 0.5 L Glucose 58 L POC Glucose 65 L Lactic Acid Calcium 8.2 L Magnesium Iron TIBC Ferritin AST ALT Lactate Dehydrogenase Troponin T C-Reactive Protein Total Protein Albumin Prealbumin Cholesterol LDL Cholesterol Direct HDL Cholesterol Urine WBC (Auto) Vancomycin Trough Coronavirus (PCR) Positive A Crossmatch 07/04/19 07/04/19 07/04/19 23:45 Unknown Unknown WBC RBC Hgb Hct MCV MCH MCHC RDW Plt Count Lymph % (Auto) [place] % (Auto) Lymph # [place] # Baso # Seg Neutrophils % Seg Neuts % (Manual) Lymphocytes % (Manual) Monocytes % (Manual) Basophils % (Manual) Nucleated RBC % Seg Neutrophils # Seg Neutrophils # Man Lymphocytes # (Manual) Monocytes # (Manual) Eosinophils # (Manual) Basophils # (Manual) PT INR D-Dimer 759.77 H ABG pH ABG pO2 ABG HCO3 ABG O2 Saturation ABG Base Excess ABG Hemoglobin Oxyhemoglobin Sodium 122 L Potassium Chloride 93.0 L Carbon Dioxide 19 L BUN 27 H Creatinine 0.5 L Glucose POC Glucose Lactic Acid Calcium 8.3 L Magnesium Iron TIBC Ferritin 1301.0 H AST ALT Lactate Dehydrogenase Troponin T C-Reactive Protein Total Protein Albumin Prealbumin Cholesterol LDL Cholesterol Direct HDL Cholesterol Urine WBC (Auto) Vancomycin Trough Coronavirus (PCR) Crossmatch 07/04/19 07/05/19 07/05/19 Unknown 03:20 04:00 WBC RBC Hgb Hct MCV MCH MCHC RDW Plt Count Lymph % (Auto) [place] % (Auto) Lymph # [place] # Baso # Seg Neutrophils % Seg Neuts % (Manual) Lymphocytes % (Manual) Monocytes % (Manual) Basophils % (Manual) Nucleated RBC % Seg Neutrophils # Seg Neutrophils # Man Lymphocytes # (Manual) Monocytes # (Manual) Eosinophils # (Manual) Basophils # (Manual) PT INR D-Dimer ABG pH ABG pO2 60.6 L ABG HCO3 ABG O2 Saturation 93.5 L ABG Base Excess -2.4 L ABG Hemoglobin 6.9 L Oxyhemoglobin 92.0 L Sodium 125 L Potassium Chloride 92.6 L Carbon Dioxide 19 L BUN 24 H Creatinine 0.6 L Glucose POC Glucose Lactic Acid Calcium 8.2 L Magnesium 1.40 L Iron TIBC Ferritin AST ALT Lactate Dehydrogenase 242 H Troponin T C-Reactive Protein 16.70 H Total Protein Albumin Prealbumin Cholesterol LDL Cholesterol Direct HDL Cholesterol Urine WBC (Auto) Vancomycin Trough Coronavirus (PCR) Crossmatch 07/05/19 07/05/19 07/05/19 10:11 16:15 17:54 WBC 46.4 H* RBC 2.77 L Hgb 7.2 L Hct 21.9 L MCV 79 L MCH 26 L MCHC RDW 19.0 H Plt Count Lymph % (Auto) [place] % (Auto) Lymph # [place] # Baso # Seg Neutrophils % Seg Neuts % (Manual) 82.0 H Lymphocytes % (Manual) 1.0 L Monocytes % (Manual) Basophils % (Manual) Nucleated RBC % Seg Neutrophils # Seg Neutrophils # Man 38.0 H Lymphocytes # (Manual) 0.5 L Monocytes # (Manual) Eosinophils # (Manual) Basophils # (Manual) PT INR D-Dimer ABG pH ABG pO2 ABG HCO3 ABG O2 Saturation ABG Base Excess ABG Hemoglobin Oxyhemoglobin Sodium Potassium Chloride Carbon Dioxide BUN Creatinine Glucose POC Glucose 69 L Lactic Acid Calcium Magnesium Iron TIBC Ferritin AST ALT Lactate Dehydrogenase Troponin T C-Reactive Protein Total Protein Albumin Prealbumin Cholesterol LDL Cholesterol Direct HDL Cholesterol Urine WBC (Auto) Vancomycin Trough 23.2 H Coronavirus (PCR) Crossmatch 07/05/19 07/06/19 07/06/19 19:58 00:27 00:27 WBC RBC Hgb Hct MCV MCH MCHC RDW Plt Count Lymph % (Auto) [place] % (Auto) Lymph # [place] # Baso # Seg Neutrophils % Seg Neuts % (Manual) Lymphocytes % (Manual) Monocytes % (Manual) Basophils % (Manual) Nucleated RBC % Seg Neutrophils # Seg Neutrophils # Man Lymphocytes # (Manual) Monocytes # (Manual) Eosinophils # (Manual) Basophils # (Manual) PT INR D-Dimer 1333.22 H ABG pH ABG pO2 ABG HCO3 ABG O2 Saturation ABG Base Excess ABG Hemoglobin Oxyhemoglobin Sodium 127 L Potassium Chloride Carbon Dioxide BUN Creatinine Glucose POC Glucose Lactic Acid Calcium Magnesium Iron TIBC Ferritin 977.1 H AST ALT Lactate Dehydrogenase Troponin T C-Reactive Protein Total Protein Albumin Prealbumin Cholesterol LDL Cholesterol Direct HDL Cholesterol Urine WBC (Auto) Vancomycin Trough Coronavirus (PCR) Crossmatch 07/06/19 07/06/19 07/06/19 00:27 02:00 02:56 WBC RBC Hgb Hct MCV MCH MCHC RDW Plt Count Lymph % (Auto) [place] % (Auto) Lymph # [place] # Baso # Seg Neutrophils % Seg Neuts % (Manual) Lymphocytes % (Manual) Monocytes % (Manual) Basophils % (Manual) Nucleated RBC % Seg Neutrophils # Seg Neutrophils # Man Lymphocytes # (Manual) Monocytes # (Manual) Eosinophils # (Manual) Basophils # (Manual) PT INR D-Dimer ABG pH ABG pO2 70.3 L ABG HCO3 ABG O2 Saturation 94.8 L ABG Base Excess ABG Hemoglobin 8.0 L Oxyhemoglobin 93.2 L Sodium Potassium Chloride Carbon Dioxide BUN Creatinine Glucose POC Glucose 117 H Lactic Acid Calcium Magnesium Iron TIBC Ferritin AST ALT Lactate Dehydrogenase 236 H Troponin T C-Reactive Protein 22.90 H Total Protein Albumin Prealbumin Cholesterol LDL Cholesterol Direct HDL Cholesterol Urine WBC (Auto) Vancomycin Trough Coronavirus (PCR) Crossmatch 07/06/19 07/06/19 07/06/19 03:49 03:49 07:40 WBC 38.8 H RBC 2.51 L Hgb 6.7 L Hct 19.9 L* MCV 79 L MCH 27 L MCHC RDW 19.2 H Plt Count Lymph % (Auto) [place] % (Auto) Lymph # [place] # Baso # Seg Neutrophils % Seg Neuts % (Manual) 90.5 H Lymphocytes % (Manual) 1.0 L Monocytes % (Manual) Basophils % (Manual) Nucleated RBC % Seg Neutrophils # Seg Neutrophils # Man 35.1 H Lymphocytes # (Manual) 0.4 L Monocytes # (Manual) Eosinophils # (Manual) Basophils # (Manual) PT INR D-Dimer ABG pH ABG pO2 ABG HCO3 ABG O2 Saturation ABG Base Excess ABG Hemoglobin Oxyhemoglobin Sodium 131 L Potassium Chloride 96.9 L Carbon Dioxide 18 L BUN 23 H Creatinine 0.5 L Glucose POC Glucose Lactic Acid Calcium 8.0 L Magnesium Iron TIBC Ferritin AST ALT Lactate Dehydrogenase Troponin T C-Reactive Protein Total Protein Albumin Prealbumin Cholesterol LDL Cholesterol Direct HDL Cholesterol Urine WBC (Auto) Vancomycin Trough Coronavirus (PCR) Crossmatch See Detail 07/06/19 07/06/19 07/06/19 12:38 14:39 20:00 WBC RBC Hgb Hct MCV MCH MCHC RDW Plt Count Lymph % (Auto) [place] % (Auto) Lymph # [place] # Baso # Seg Neutrophils % Seg Neuts % (Manual) Lymphocytes % (Manual) Monocytes % (Manual) Basophils % (Manual) Nucleated RBC % Seg Neutrophils # Seg Neutrophils # Man Lymphocytes # (Manual) Monocytes # (Manual) Eosinophils # (Manual) Basophils # (Manual) PT INR D-Dimer ABG pH ABG pO2 ABG HCO3 ABG O2 Saturation ABG Base Excess ABG Hemoglobin Oxyhemoglobin Sodium Potassium Chloride Carbon Dioxide BUN Creatinine Glucose POC Glucose 112 H 111 H 140 H Lactic Acid Calcium Magnesium Iron TIBC Ferritin AST ALT Lactate Dehydrogenase Troponin T C-Reactive Protein Total Protein Albumin Prealbumin Cholesterol LDL Cholesterol Direct HDL Cholesterol Urine WBC (Auto) Vancomycin Trough Coronavirus (PCR) Crossmatch 07/06/19 07/06/19 07/07/19 22:43 22:56 02:20 WBC RBC Hgb 7.9 L Hct 23.1 L MCV MCH MCHC RDW Plt Count Lymph % (Auto) [place] % (Auto) Lymph # [place] # Baso # Seg Neutrophils % Seg Neuts % (Manual) Lymphocytes % (Manual) Monocytes % (Manual) Basophils % (Manual) Nucleated RBC % Seg Neutrophils # Seg Neutrophils # Man Lymphocytes # (Manual) Monocytes # (Manual) Eosinophils # (Manual) Basophils # (Manual) PT INR D-Dimer ABG pH ABG pO2 ABG HCO3 ABG O2 Saturation ABG Base Excess ABG Hemoglobin Oxyhemoglobin Sodium Potassium Chloride Carbon Dioxide BUN Creatinine Glucose POC Glucose 122 H 149 H Lactic Acid Calcium Magnesium Iron TIBC Ferritin AST ALT Lactate Dehydrogenase Troponin T C-Reactive Protein Total Protein Albumin Prealbumin Cholesterol LDL Cholesterol Direct HDL Cholesterol Urine WBC (Auto) Vancomycin Trough Coronavirus (PCR) Crossmatch 07/07/19 07/07/19 07/07/19 04:35 05:27 05:34 WBC 23.1 H RBC 3.00 L Hgb 8.1 L Hct 24.2 L MCV 81 L MCH 27 L MCHC RDW 20.6 H Plt Count Lymph % (Auto) [place] % (Auto) Lymph # [place] # Baso # Seg Neutrophils % Seg Neuts % (Manual) 90.0 H Lymphocytes % (Manual) 2.0 L Monocytes % (Manual) Basophils % (Manual) Nucleated RBC % Seg Neutrophils # Seg Neutrophils # Man 20.8 H Lymphocytes # (Manual) 0.5 L Monocytes # (Manual) Eosinophils # (Manual) Basophils # (Manual) PT INR D-Dimer ABG pH ABG pO2 65.8 L ABG HCO3 ABG O2 Saturation 92.2 L ABG Base Excess ABG Hemoglobin 8.3 L Oxyhemoglobin 90.6 L Sodium Potassium Chloride Carbon Dioxide BUN Creatinine Glucose POC Glucose 132 H Lactic Acid Calcium Magnesium Iron TIBC Ferritin AST ALT Lactate Dehydrogenase Troponin T C-Reactive Protein Total Protein Albumin Prealbumin Cholesterol LDL Cholesterol Direct HDL Cholesterol Urine WBC (Auto) Vancomycin Trough Coronavirus (PCR) Crossmatch 07/07/19 07/07/19 07/07/19 05:34 11:50 15:58 WBC RBC Hgb 8.1 L Hct 24.2 L MCV MCH MCHC RDW Plt Count Lymph % (Auto) [place] % (Auto) Lymph # [place] # Baso # Seg Neutrophils % Seg Neuts % (Manual) Lymphocytes % (Manual) Monocytes % (Manual) Basophils % (Manual) Nucleated RBC % Seg Neutrophils # Seg Neutrophils # Man Lymphocytes # (Manual) Monocytes # (Manual) Eosinophils # (Manual) Basophils # (Manual) PT INR D-Dimer ABG pH ABG pO2 ABG HCO3 ABG O2 Saturation ABG Base Excess ABG Hemoglobin Oxyhemoglobin Sodium 135 L Potassium 3.3 L Chloride Carbon Dioxide 20 L BUN 27 H Creatinine 0.6 L Glucose 121 H POC Glucose 123 H Lactic Acid Calcium 8.0 L Magnesium Iron TIBC Ferritin AST ALT Lactate Dehydrogenase Troponin T C-Reactive Protein Total Protein Albumin Prealbumin Cholesterol LDL Cholesterol Direct HDL Cholesterol Urine WBC (Auto) Vancomycin Trough Coronavirus (PCR) Crossmatch 07/07/19 07/07/19 07/07/19 17:42 22:00 23:53 WBC RBC Hgb 8.0 L Hct 23.4 L MCV MCH MCHC RDW Plt Count Lymph % (Auto) [place] % (Auto) Lymph # [place] # Baso # Seg Neutrophils % Seg Neuts % (Manual) Lymphocytes % (Manual) Monocytes % (Manual) Basophils % (Manual) Nucleated RBC % Seg Neutrophils # Seg Neutrophils # Man Lymphocytes # (Manual) Monocytes # (Manual) Eosinophils # (Manual) Basophils # (Manual) PT INR D-Dimer ABG pH ABG pO2 ABG HCO3 ABG O2 Saturation ABG Base Excess ABG Hemoglobin Oxyhemoglobin Sodium Potassium Chloride Carbon Dioxide BUN Creatinine Glucose POC Glucose 107 H 117 H Lactic Acid Calcium Magnesium Iron TIBC Ferritin AST ALT Lactate Dehydrogenase Troponin T C-Reactive Protein Total Protein Albumin Prealbumin Cholesterol LDL Cholesterol Direct HDL Cholesterol Urine WBC (Auto) Vancomycin Trough Coronavirus (PCR) Crossmatch 07/08/19 07/08/19 07/08/19 00:45 00:45 00:45 WBC RBC Hgb Hct MCV MCH MCHC RDW Plt Count Lymph % (Auto) [place] % (Auto) Lymph # [place] # Baso # Seg Neutrophils % Seg Neuts % (Manual) Lymphocytes % (Manual) Monocytes % (Manual) Basophils % (Manual) Nucleated RBC % Seg Neutrophils # Seg Neutrophils # Man Lymphocytes # (Manual) Monocytes # (Manual) Eosinophils # (Manual) Basophils # (Manual) PT INR D-Dimer 1142.18 H ABG pH ABG pO2 ABG HCO3 ABG O2 Saturation ABG Base Excess ABG Hemoglobin Oxyhemoglobin Sodium Potassium Chloride Carbon Dioxide BUN Creatinine Glucose POC Glucose Lactic Acid Calcium Magnesium Iron TIBC Ferritin 839.0 H AST ALT Lactate Dehydrogenase 253 H Troponin T C-Reactive Protein 18.90 H Total Protein Albumin Prealbumin Cholesterol LDL Cholesterol Direct HDL Cholesterol Urine WBC (Auto) Vancomycin Trough Coronavirus (PCR) Crossmatch 07/08/19 07/08/19 07/08/19 04:30 05:11 12:02 WBC RBC Hgb Hct MCV MCH MCHC RDW Plt Count Lymph % (Auto) [place] % (Auto) Lymph # [place] # Baso # Seg Neutrophils % Seg Neuts % (Manual) Lymphocytes % (Manual) Monocytes % (Manual) Basophils % (Manual) Nucleated RBC % Seg Neutrophils # Seg Neutrophils # Man Lymphocytes # (Manual) Monocytes # (Manual) Eosinophils # (Manual) Basophils # (Manual) PT INR D-Dimer ABG pH ABG pO2 66.0 L ABG HCO3 ABG O2 Saturation 92.3 L ABG Base Excess ABG Hemoglobin 7.7 L Oxyhemoglobin 90.7 L Sodium Potassium Chloride Carbon Dioxide BUN Creatinine Glucose POC Glucose 108 H 153 H Lactic Acid Calcium Magnesium Iron TIBC Ferritin AST ALT Lactate Dehydrogenase Troponin T C-Reactive Protein Total Protein Albumin Prealbumin Cholesterol LDL Cholesterol Direct HDL Cholesterol Urine WBC (Auto) Vancomycin Trough Coronavirus (PCR) Crossmatch 07/08/19 07/08/19 07/08/19 16:15 18:22 23:35 WBC RBC Hgb Hct MCV MCH MCHC RDW Plt Count Lymph % (Auto) [place] % (Auto) Lymph # [place] # Baso # Seg Neutrophils % Seg Neuts % (Manual) Lymphocytes % (Manual) Monocytes % (Manual) Basophils % (Manual) Nucleated RBC % Seg Neutrophils # Seg Neutrophils # Man Lymphocytes # (Manual) Monocytes # (Manual) Eosinophils # (Manual) Basophils # (Manual) PT INR D-Dimer ABG pH ABG pO2 ABG HCO3 ABG O2 Saturation ABG Base Excess ABG Hemoglobin Oxyhemoglobin Sodium 134 L Potassium 3.3 L Chloride Carbon Dioxide 21 L BUN 27 H Creatinine 0.6 L Glucose 146 H POC Glucose 134 H 133 H Lactic Acid Calcium Magnesium Iron TIBC Ferritin AST ALT Lactate Dehydrogenase Troponin T C-Reactive Protein Total Protein Albumin Prealbumin Cholesterol LDL Cholesterol Direct HDL Cholesterol Urine WBC (Auto) Vancomycin Trough Coronavirus (PCR) Crossmatch 07/09/19 07/09/19 07/09/19 04:30 04:30 05:00 WBC 18.9 H RBC 2.77 L Hgb 7.4 L Hct 22.8 L MCV 82 L MCH 27 L MCHC RDW 20.9 H Plt Count 130 L Lymph % (Auto) [place] % (Auto) Lymph # [place] # Baso # Seg Neutrophils % Seg Neuts % (Manual) 84.0 H Lymphocytes % (Manual) 0 L Monocytes % (Manual) Basophils % (Manual) Nucleated RBC % Seg Neutrophils # Seg Neutrophils # Man 15.9 H Lymphocytes # (Manual) 0.0 L Monocytes # (Manual) Eosinophils # (Manual) Basophils # (Manual) PT INR D-Dimer ABG pH ABG pO2 ABG HCO3 ABG O2 Saturation ABG Base Excess ABG Hemoglobin Oxyhemoglobin Sodium Potassium 3.1 L Chloride Carbon Dioxide BUN 26 H Creatinine 0.5 L Glucose 125 H POC Glucose 155 H Lactic Acid Calcium Magnesium Iron TIBC Ferritin AST ALT Lactate Dehydrogenase Troponin T C-Reactive Protein Total Protein Albumin Prealbumin Cholesterol LDL Cholesterol Direct HDL Cholesterol Urine WBC (Auto) Vancomycin Trough Coronavirus (PCR) Crossmatch 07/09/19 07/09/19 07/09/19 05:55 12:22 17:50 WBC RBC Hgb Hct MCV MCH MCHC RDW Plt Count Lymph % (Auto) [place] % (Auto) Lymph # [place] # Baso # Seg Neutrophils % Seg Neuts % (Manual) Lymphocytes % (Manual) Monocytes % (Manual) Basophils % (Manual) Nucleated RBC % Seg Neutrophils # Seg Neutrophils # Man Lymphocytes # (Manual) Monocytes # (Manual) Eosinophils # (Manual) Basophils # (Manual) PT INR D-Dimer ABG pH ABG pO2 62.8 L ABG HCO3 ABG O2 Saturation ABG Base Excess ABG Hemoglobin 6.1 L Oxyhemoglobin 93.9 L Sodium Potassium Chloride Carbon Dioxide BUN Creatinine Glucose POC Glucose 115 H 133 H Lactic Acid Calcium Magnesium Iron TIBC Ferritin AST ALT Lactate Dehydrogenase Troponin T C-Reactive Protein Total Protein Albumin Prealbumin Cholesterol LDL Cholesterol Direct HDL Cholesterol Urine WBC (Auto) Vancomycin Trough Coronavirus (PCR) Crossmatch 07/10/19 07/10/19 07/10/19 00:38 04:00 04:00 WBC RBC Hgb Hct MCV MCH MCHC RDW Plt Count Lymph % (Auto) [place] % (Auto) Lymph # [place] # Baso # Seg Neutrophils % Seg Neuts % (Manual) Lymphocytes % (Manual) Monocytes % (Manual) Basophils % (Manual) Nucleated RBC % Seg Neutrophils # Seg Neutrophils # Man Lymphocytes # (Manual) Monocytes # (Manual) Eosinophils # (Manual) Basophils # (Manual) PT INR D-Dimer ABG pH ABG pO2 ABG HCO3 ABG O2 Saturation ABG Base Excess ABG Hemoglobin Oxyhemoglobin Sodium Potassium Chloride 107.9 H Carbon Dioxide BUN 26 H Creatinine 0.4 L Glucose 137 H POC Glucose 122 H Lactic Acid Calcium Magnesium 1.50 L Iron TIBC Ferritin AST ALT Lactate Dehydrogenase 277 H Troponin T C-Reactive Protein 15.10 H Total Protein Albumin Prealbumin Cholesterol LDL Cholesterol Direct HDL Cholesterol Urine WBC (Auto) Vancomycin Trough Coronavirus (PCR) Crossmatch 07/10/19 07/10/19 07/10/19 04:07 05:21 17:25 WBC RBC Hgb Hct MCV MCH MCHC RDW Plt Count Lymph % (Auto) [place] % (Auto) Lymph # [place] # Baso # Seg Neutrophils % Seg Neuts % (Manual) Lymphocytes % (Manual) Monocytes % (Manual) Basophils % (Manual) Nucleated RBC % Seg Neutrophils # Seg Neutrophils # Man Lymphocytes # (Manual) Monocytes # (Manual) Eosinophils # (Manual) Basophils # (Manual) PT INR D-Dimer ABG pH ABG pO2 65.6 L ABG HCO3 26.3 H ABG O2 Saturation ABG Base Excess ABG Hemoglobin 6.7 L Oxyhemoglobin Sodium Potassium Chloride Carbon Dioxide BUN Creatinine Glucose POC Glucose 144 H 113 H Lactic Acid Calcium Magnesium Iron TIBC Ferritin AST ALT Lactate Dehydrogenase Troponin T C-Reactive Protein Total Protein Albumin Prealbumin Cholesterol LDL Cholesterol Direct HDL Cholesterol Urine WBC (Auto) Vancomycin Trough Coronavirus (PCR) Crossmatch 07/11/19 07/11/19 07/11/19 00:07 05:14 05:25 WBC RBC Hgb Hct MCV MCH MCHC RDW Plt Count Lymph % (Auto) [place] % (Auto) Lymph # [place] # Baso # Seg Neutrophils % Seg Neuts % (Manual) Lymphocytes % (Manual) Monocytes % (Manual) Basophils % (Manual) Nucleated RBC % Seg Neutrophils # Seg Neutrophils # Man Lymphocytes # (Manual) Monocytes # (Manual) Eosinophils # (Manual) Basophils # (Manual) PT INR D-Dimer ABG pH ABG pO2 ABG HCO3 ABG O2 Saturation ABG Base Excess ABG Hemoglobin 5.8 L Oxyhemoglobin Sodium Potassium Chloride 108.0 H Carbon Dioxide BUN 26 H Creatinine 0.4 L Glucose 110 H POC Glucose 121 H Lactic Acid Calcium Magnesium Iron TIBC Ferritin AST ALT Lactate Dehydrogenase Troponin T C-Reactive Protein Total Protein Albumin Prealbumin Cholesterol LDL Cholesterol Direct HDL Cholesterol Urine WBC (Auto) Vancomycin Trough Coronavirus (PCR) Crossmatch 07/11/19 07/11/19 07/11/19 12:27 18:00 23:42 WBC RBC Hgb Hct MCV MCH MCHC RDW Plt Count Lymph % (Auto) [place] % (Auto) Lymph # [place] # Baso # Seg Neutrophils % Seg Neuts % (Manual) Lymphocytes % (Manual) Monocytes % (Manual) Basophils % (Manual) Nucleated RBC % Seg Neutrophils # Seg Neutrophils # Man Lymphocytes # (Manual) Monocytes # (Manual) Eosinophils # (Manual) Basophils # (Manual) PT INR D-Dimer ABG pH ABG pO2 ABG HCO3 ABG O2 Saturation ABG Base Excess ABG Hemoglobin Oxyhemoglobin Sodium Potassium Chloride Carbon Dioxide BUN Creatinine Glucose POC Glucose 158 H 141 H 142 H Lactic Acid Calcium Magnesium Iron TIBC Ferritin AST ALT Lactate Dehydrogenase Troponin T C-Reactive Protein Total Protein Albumin Prealbumin Cholesterol LDL Cholesterol Direct HDL Cholesterol Urine WBC (Auto) Vancomycin Trough Coronavirus (PCR) Crossmatch 07/12/19 07/12/19 07/12/19 04:46 04:46 05:23 WBC 23.6 H RBC 2.51 L Hgb 6.7 L Hct 20.8 L MCV 83 L MCH 27 L MCHC RDW 20.3 H Plt Count Lymph % (Auto) [place] % (Auto) Lymph # [place] # Baso # Seg Neutrophils % Seg Neuts % (Manual) 94.0 H Lymphocytes % (Manual) 4.0 L Monocytes % (Manual) Basophils % (Manual) Nucleated RBC % Seg Neutrophils # Seg Neutrophils # Man 22.2 H Lymphocytes # (Manual) 0.9 L Monocytes # (Manual) Eosinophils # (Manual) Basophils # (Manual) PT INR D-Dimer ABG pH ABG pO2 ABG HCO3 ABG O2 Saturation ABG Base Excess ABG Hemoglobin Oxyhemoglobin Sodium Potassium Chloride 107.1 H Carbon Dioxide BUN 25 H Creatinine 0.4 L Glucose 122 H POC Glucose 118 H Lactic Acid Calcium Magnesium Iron TIBC Ferritin AST ALT Lactate Dehydrogenase Troponin T C-Reactive Protein Total Protein Albumin Prealbumin Cholesterol LDL Cholesterol Direct HDL Cholesterol Urine WBC (Auto) Vancomycin Trough Coronavirus (PCR) Crossmatch 07/12/19 07/12/19 07/12/19 08:49 11:36 18:15 WBC RBC Hgb Hct MCV MCH MCHC RDW Plt Count Lymph % (Auto) [place] % (Auto) Lymph # [place] # Baso # Seg Neutrophils % Seg Neuts % (Manual) Lymphocytes % (Manual) Monocytes % (Manual) Basophils % (Manual) Nucleated RBC % Seg Neutrophils # Seg Neutrophils # Man Lymphocytes # (Manual) Monocytes # (Manual) Eosinophils # (Manual) Basophils # (Manual) PT INR D-Dimer ABG pH ABG pO2 ABG HCO3 ABG O2 Saturation ABG Base Excess ABG Hemoglobin Oxyhemoglobin Sodium Potassium Chloride Carbon Dioxide BUN Creatinine Glucose POC Glucose 124 H 110 H Lactic Acid Calcium Magnesium Iron TIBC Ferritin AST ALT Lactate Dehydrogenase Troponin T C-Reactive Protein Total Protein Albumin Prealbumin Cholesterol LDL Cholesterol Direct HDL Cholesterol Urine WBC (Auto) Vancomycin Trough Coronavirus (PCR) Crossmatch See Detail 07/12/19 07/13/19 07/13/19 23:16 05:26 06:50 WBC 23.9 H RBC 2.58 L Hgb 6.9 L Hct 21.5 L MCV 83 L MCH 27 L MCHC RDW 19.0 H Plt Count Lymph % (Auto) [place] % (Auto) Lymph # [place] # Baso # Seg Neutrophils % Seg Neuts % (Manual) 96.0 H Lymphocytes % (Manual) 3.0 L Monocytes % (Manual) Basophils % (Manual) Nucleated RBC % Seg Neutrophils # Seg Neutrophils # Man 22.9 H Lymphocytes # (Manual) 0.7 L Monocytes # (Manual) Eosinophils # (Manual) Basophils # (Manual) PT INR D-Dimer ABG pH ABG pO2 ABG HCO3 ABG O2 Saturation ABG Base Excess ABG Hemoglobin Oxyhemoglobin Sodium Potassium Chloride Carbon Dioxide BUN Creatinine Glucose POC Glucose 108 H 126 H Lactic Acid Calcium Magnesium Iron TIBC Ferritin AST ALT Lactate Dehydrogenase Troponin T C-Reactive Protein Total Protein Albumin Prealbumin Cholesterol LDL Cholesterol Direct HDL Cholesterol Urine WBC (Auto) Vancomycin Trough Coronavirus (PCR) Crossmatch 07/13/19 07/13/19 07/13/19 06:50 12:38 18:05 WBC RBC Hgb Hct MCV MCH MCHC RDW Plt Count Lymph % (Auto) [place] % (Auto) Lymph # [place] # Baso # Seg Neutrophils % Seg Neuts % (Manual) Lymphocytes % (Manual) Monocytes % (Manual) Basophils % (Manual) Nucleated RBC % Seg Neutrophils # Seg Neutrophils # Man Lymphocytes # (Manual) Monocytes # (Manual) Eosinophils # (Manual) Basophils # (Manual) PT INR D-Dimer ABG pH ABG pO2 ABG HCO3 ABG O2 Saturation ABG Base Excess ABG Hemoglobin Oxyhemoglobin Sodium Potassium Chloride Carbon Dioxide BUN 33 H Creatinine 0.5 L Glucose 136 H POC Glucose 164 H 145 H Lactic Acid Calcium Magnesium Iron TIBC Ferritin AST ALT Lactate Dehydrogenase Troponin T C-Reactive Protein Total Protein Albumin Prealbumin Cholesterol LDL Cholesterol Direct HDL Cholesterol Urine WBC (Auto) Vancomycin Trough Coronavirus (PCR) Crossmatch 07/13/19 07/14/19 07/14/19 18:30 00:21 04:40 WBC 22.9 H RBC 2.45 L Hgb 6.6 L Hct 21.1 L MCV MCH 27 L MCHC 31 L RDW 19.2 H Plt Count Lymph % (Auto) [place] % (Auto) Lymph # [place] # Baso # Seg Neutrophils % Seg Neuts % (Manual) 91.0 H Lymphocytes % (Manual) 7.0 L Monocytes % (Manual) Basophils % (Manual) Nucleated RBC % Seg Neutrophils # Seg Neutrophils # Man 20.8 H Lymphocytes # (Manual) Monocytes # (Manual) Eosinophils # (Manual) Basophils # (Manual) PT INR D-Dimer ABG pH ABG pO2 58.1 L ABG HCO3 ABG O2 Saturation 88.7 L ABG Base Excess ABG Hemoglobin 7.8 L Oxyhemoglobin 86.8 L Sodium Potassium Chloride Carbon Dioxide BUN Creatinine Glucose POC Glucose 118 H Lactic Acid Calcium Magnesium Iron TIBC Ferritin AST ALT Lactate Dehydrogenase Troponin T C-Reactive Protein Total Protein Albumin Prealbumin Cholesterol LDL Cholesterol Direct HDL Cholesterol Urine WBC (Auto) Vancomycin Trough Coronavirus (PCR) Crossmatch 07/14/19 07/14/19 07/14/19 04:40 05:38 05:45 WBC RBC Hgb Hct MCV MCH MCHC RDW Plt Count Lymph % (Auto) [place] % (Auto) Lymph # [place] # Baso # Seg Neutrophils % Seg Neuts % (Manual) Lymphocytes % (Manual) Monocytes % (Manual) Basophils % (Manual) Nucleated RBC % Seg Neutrophils # Seg Neutrophils # Man Lymphocytes # (Manual) Monocytes # (Manual) Eosinophils # (Manual) Basophils # (Manual) PT INR D-Dimer ABG pH 7.230 L ABG pO2 72.1 L ABG HCO3 ABG O2 Saturation 89.3 L ABG Base Excess -2.7 L ABG Hemoglobin 6.7 L Oxyhemoglobin 87.7 L Sodium Potassium Chloride 107.4 H Carbon Dioxide BUN 45 H Creatinine Glucose 101 H POC Glucose 154 H Lactic Acid Calcium Magnesium Iron TIBC Ferritin AST ALT Lactate Dehydrogenase Troponin T C-Reactive Protein Total Protein Albumin Prealbumin Cholesterol LDL Cholesterol Direct HDL Cholesterol Urine WBC (Auto) Vancomycin Trough Coronavirus (PCR) Crossmatch 07/14/19 07/14/19 07/14/19 12:25 18:20 19:01 WBC 22.4 H RBC 2.70 L Hgb 7.5 L Hct 23.3 L MCV MCH MCHC RDW 19.5 H Plt Count Lymph % (Auto) [place] % (Auto) Lymph # [place] # Baso # Seg Neutrophils % Seg Neuts % (Manual) Lymphocytes % (Manual) Monocytes % (Manual) Basophils % (Manual) Nucleated RBC % Seg Neutrophils # Seg Neutrophils # Man Lymphocytes # (Manual) Monocytes # (Manual) Eosinophils # (Manual) Basophils # (Manual) PT INR D-Dimer ABG pH ABG pO2 ABG HCO3 ABG O2 Saturation ABG Base Excess ABG Hemoglobin Oxyhemoglobin Sodium Potassium Chloride Carbon Dioxide BUN Creatinine Glucose POC Glucose 136 H 131 H Lactic Acid Calcium Magnesium Iron TIBC Ferritin AST ALT Lactate Dehydrogenase Troponin T C-Reactive Protein Total Protein Albumin Prealbumin Cholesterol LDL Cholesterol Direct HDL Cholesterol Urine WBC (Auto) Vancomycin Trough Coronavirus (PCR) Crossmatch 07/15/19 07/15/19 07/15/19 00:17 04:35 05:18 WBC 20.6 H RBC 2.41 L Hgb 6.8 L Hct 20.7 L MCV MCH MCHC RDW 20.2 H Plt Count Lymph % (Auto) [place] % (Auto) Lymph # [place] # Baso # Seg Neutrophils % Seg Neuts % (Manual) 92.0 H Lymphocytes % (Manual) 5.0 L Monocytes % (Manual) Basophils % (Manual) Nucleated RBC % Seg Neutrophils # Seg Neutrophils # Man 19.0 H Lymphocytes # (Manual) 1.0 L Monocytes # (Manual) Eosinophils # (Manual) Basophils # (Manual) PT INR D-Dimer ABG pH 7.342 L ABG pO2 ABG HCO3 ABG O2 Saturation ABG Base Excess -3.1 L ABG Hemoglobin 7.2 L Oxyhemoglobin 94.9 L Sodium Potassium Chloride Carbon Dioxide BUN Creatinine Glucose POC Glucose 116 H Lactic Acid Calcium Magnesium Iron TIBC Ferritin AST ALT Lactate Dehydrogenase Troponin T C-Reactive Protein Total Protein Albumin Prealbumin Cholesterol LDL Cholesterol Direct HDL Cholesterol Urine WBC (Auto) Vancomycin Trough Coronavirus (PCR) Crossmatch 07/15/19 07/15/19 07/15/19 05:18 05:57 11:28 WBC RBC Hgb Hct MCV MCH MCHC RDW Plt Count Lymph % (Auto) [place] % (Auto) Lymph # [place] # Baso # Seg Neutrophils % Seg Neuts % (Manual) Lymphocytes % (Manual) Monocytes % (Manual) Basophils % (Manual) Nucleated RBC % Seg Neutrophils # Seg Neutrophils # Man Lymphocytes # (Manual) Monocytes # (Manual) Eosinophils # (Manual) Basophils # (Manual) PT INR D-Dimer ABG pH ABG pO2 ABG HCO3 ABG O2 Saturation ABG Base Excess ABG Hemoglobin Oxyhemoglobin Sodium Potassium Chloride Carbon Dioxide 20 L BUN 59 H Creatinine Glucose 140 H POC Glucose 139 H 117 H Lactic Acid Calcium Magnesium Iron TIBC Ferritin AST ALT Lactate Dehydrogenase Troponin T C-Reactive Protein Total Protein Albumin Prealbumin Cholesterol LDL Cholesterol Direct HDL Cholesterol Urine WBC (Auto) Vancomycin Trough Coronavirus (PCR) Crossmatch 07/15/19 07/16/19 07/16/19 18:13 00:06 03:43 WBC RBC Hgb Hct MCV MCH MCHC RDW Plt Count Lymph % (Auto) [place] % (Auto) Lymph # [place] # Baso # Seg Neutrophils % Seg Neuts % (Manual) Lymphocytes % (Manual) Monocytes % (Manual) Basophils % (Manual) Nucleated RBC % Seg Neutrophils # Seg Neutrophils # Man Lymphocytes # (Manual) Monocytes # (Manual) Eosinophils # (Manual) Basophils # (Manual) PT INR D-Dimer ABG pH 7.344 L ABG pO2 68.6 L ABG HCO3 ABG O2 Saturation ABG Base Excess -3.5 L ABG Hemoglobin 6.1 L Oxyhemoglobin 93.3 L Sodium Potassium Chloride Carbon Dioxide BUN Creatinine Glucose POC Glucose 114 H 119 H Lactic Acid Calcium Magnesium Iron TIBC Ferritin AST ALT Lactate Dehydrogenase Troponin T C-Reactive Protein Total Protein Albumin Prealbumin Cholesterol LDL Cholesterol Direct HDL Cholesterol Urine WBC (Auto) Vancomycin Trough Coronavirus (PCR) Crossmatch 07/16/19 07/16/19 07/16/19 04:41 04:41 12:09 WBC 19.6 H RBC 2.81 L Hgb 7.7 L Hct 24.0 L MCV MCH 27 L MCHC RDW 19.4 H Plt Count 514 H Lymph % (Auto) 6.7 L [place] % (Auto) Lymph # [place] # 1.0 H Baso # Seg Neutrophils % 87.0 H Seg Neuts % (Manual) Lymphocytes % (Manual) Monocytes % (Manual) Basophils % (Manual) Nucleated RBC % Seg Neutrophils # 17.0 H Seg Neutrophils # Man Lymphocytes # (Manual) Monocytes # (Manual) Eosinophils # (Manual) Basophils # (Manual) PT INR D-Dimer ABG pH ABG pO2 ABG HCO3 ABG O2 Saturation ABG Base Excess ABG Hemoglobin Oxyhemoglobin Sodium Potassium 5.9 H Chloride Carbon Dioxide 21 L BUN 73 H Creatinine 2.0 H Glucose POC Glucose 141 H Lactic Acid Calcium Magnesium Iron TIBC Ferritin AST ALT Lactate Dehydrogenase Troponin T C-Reactive Protein Total Protein Albumin Prealbumin Cholesterol LDL Cholesterol Direct HDL Cholesterol Urine WBC (Auto) Vancomycin Trough Coronavirus (PCR) Crossmatch 07/16/19 07/16/19 07/17/19 16:19 17:45 00:16 WBC RBC Hgb Hct MCV MCH MCHC RDW Plt Count Lymph % (Auto) [place] % (Auto) Lymph # [place] # Baso # Seg Neutrophils % Seg Neuts % (Manual) Lymphocytes % (Manual) Monocytes % (Manual) Basophils % (Manual) Nucleated RBC % Seg Neutrophils # Seg Neutrophils # Man Lymphocytes # (Manual) Monocytes # (Manual) Eosinophils # (Manual) Basophils # (Manual) PT INR D-Dimer ABG pH ABG pO2 ABG HCO3 ABG O2 Saturation ABG Base Excess ABG Hemoglobin Oxyhemoglobin Sodium Potassium 5.1 H Chloride Carbon Dioxide 20 L BUN 72 H Creatinine 1.7 H Glucose 128 H POC Glucose 181 H 164 H Lactic Acid Calcium Magnesium Iron TIBC Ferritin AST ALT Lactate Dehydrogenase Troponin T C-Reactive Protein Total Protein Albumin Prealbumin Cholesterol LDL Cholesterol Direct HDL Cholesterol Urine WBC (Auto) Vancomycin Trough Coronavirus (PCR) Crossmatch 07/17/19 07/17/19 07/17/19 04:20 04:39 04:39 WBC 16.1 H RBC 2.92 L Hgb 8.0 L Hct 25.5 L MCV MCH MCHC 31 L RDW 19.7 H Plt Count 564 H Lymph % (Auto) 3.6 L [place] % (Auto) 7.4 H Lymph # 0.6 L [place] # 1.2 H Baso # Seg Neutrophils % 87.5 H Seg Neuts % (Manual) Lymphocytes % (Manual) Monocytes % (Manual) Basophils % (Manual) Nucleated RBC % Seg Neutrophils # 14.1 H Seg Neutrophils # Man Lymphocytes # (Manual) Monocytes # (Manual) Eosinophils # (Manual) Basophils # (Manual) PT INR D-Dimer ABG pH 7.231 L ABG pO2 95.3 H ABG HCO3 ABG O2 Saturation ABG Base Excess -5.0 L ABG Hemoglobin 7.9 L Oxyhemoglobin 94.8 L Sodium Potassium Chloride 107.8 H Carbon Dioxide 21 L BUN 68 H Creatinine Glucose POC Glucose Lactic Acid Calcium Magnesium Iron TIBC Ferritin AST ALT Lactate Dehydrogenase Troponin T C-Reactive Protein Total Protein Albumin Prealbumin Cholesterol LDL Cholesterol Direct HDL Cholesterol Urine WBC (Auto) Vancomycin Trough Coronavirus (PCR) Crossmatch 07/17/19 07/17/19 07/17/19 05:28 12:11 18:48 WBC RBC Hgb Hct MCV MCH MCHC RDW Plt Count Lymph % (Auto) [place] % (Auto) Lymph # [place] # Baso # Seg Neutrophils % Seg Neuts % (Manual) Lymphocytes % (Manual) Monocytes % (Manual) Basophils % (Manual) Nucleated RBC % Seg Neutrophils # Seg Neutrophils # Man Lymphocytes # (Manual) Monocytes # (Manual) Eosinophils # (Manual) Basophils # (Manual) PT INR D-Dimer ABG pH ABG pO2 ABG HCO3 ABG O2 Saturation ABG Base Excess ABG Hemoglobin Oxyhemoglobin Sodium Potassium Chloride Carbon Dioxide BUN Creatinine Glucose POC Glucose 121 H 125 H 174 H Lactic Acid Calcium Magnesium Iron TIBC Ferritin AST ALT Lactate Dehydrogenase Troponin T C-Reactive Protein Total Protein Albumin Prealbumin Cholesterol LDL Cholesterol Direct HDL Cholesterol Urine WBC (Auto) Vancomycin Trough Coronavirus (PCR) Crossmatch 07/17/19 07/17/19 07/18/19 19:55 23:57 02:30 WBC RBC Hgb Hct MCV MCH MCHC RDW Plt Count Lymph % (Auto) [place] % (Auto) Lymph # [place] # Baso # Seg Neutrophils % Seg Neuts % (Manual) Lymphocytes % (Manual) Monocytes % (Manual) Basophils % (Manual) Nucleated RBC % Seg Neutrophils # Seg Neutrophils # Man Lymphocytes # (Manual) Monocytes # (Manual) Eosinophils # (Manual) Basophils # (Manual) PT INR D-Dimer ABG pH 7.344 L 7.294 L ABG pO2 78.5 L 119.2 H ABG HCO3 ABG O2 Saturation ABG Base Excess -3.3 L -2.6 L ABG Hemoglobin 8.6 L 8.1 L Oxyhemoglobin 94.8 L Sodium Potassium Chloride Carbon Dioxide BUN Creatinine Glucose POC Glucose 148 H Lactic Acid Calcium Magnesium Iron TIBC Ferritin AST ALT Lactate Dehydrogenase Troponin T C-Reactive Protein Total Protein Albumin Prealbumin Cholesterol LDL Cholesterol Direct HDL Cholesterol Urine WBC (Auto) Vancomycin Trough Coronavirus (PCR) Crossmatch 07/18/19 07/18/19 07/18/19 04:49 05:22 05:22 WBC 15.9 H RBC 3.00 L Hgb 8.1 L Hct 26.0 L MCV MCH 27 L MCHC 31 L RDW 19.4 H Plt Count 733 H Lymph % (Auto) 6.3 L [place] % (Auto) 7.4 H Lymph # 1.0 L [place] # 1.2 H Baso # 0.2 H Seg Neutrophils % 83.8 H Seg Neuts % (Manual) Lymphocytes % (Manual) Monocytes % (Manual) Basophils % (Manual) Nucleated RBC % Seg Neutrophils # 13.3 H Seg Neutrophils # Man Lymphocytes # (Manual) Monocytes # (Manual) Eosinophils # (Manual) Basophils # (Manual) PT INR D-Dimer ABG pH ABG pO2 ABG HCO3 ABG O2 Saturation ABG Base Excess ABG Hemoglobin Oxyhemoglobin Sodium Potassium Chloride 110.6 H Carbon Dioxide BUN 61 H Creatinine Glucose 109 H POC Glucose 116 H Lactic Acid Calcium Magnesium Iron TIBC Ferritin AST ALT Lactate Dehydrogenase Troponin T C-Reactive Protein Total Protein Albumin Prealbumin Cholesterol LDL Cholesterol Direct HDL Cholesterol Urine WBC (Auto) Vancomycin Trough Coronavirus (PCR) Crossmatch 07/18/19 07/18/19 07/18/19 12:23 18:06 22:20 WBC RBC Hgb Hct MCV MCH MCHC RDW Plt Count Lymph % (Auto) [place] % (Auto) Lymph # [place] # Baso # Seg Neutrophils % Seg Neuts % (Manual) Lymphocytes % (Manual) Monocytes % (Manual) Basophils % (Manual) Nucleated RBC % Seg Neutrophils # Seg Neutrophils # Man Lymphocytes # (Manual) Monocytes # (Manual) Eosinophils # (Manual) Basophils # (Manual) PT INR D-Dimer ABG pH 7.338 L ABG pO2 135.1 H ABG HCO3 ABG O2 Saturation ABG Base Excess ABG Hemoglobin 9.2 L Oxyhemoglobin Sodium Potassium Chloride Carbon Dioxide BUN Creatinine Glucose POC Glucose 114 H 113 H Lactic Acid Calcium Magnesium Iron TIBC Ferritin AST ALT Lactate Dehydrogenase Troponin T C-Reactive Protein Total Protein Albumin Prealbumin Cholesterol LDL Cholesterol Direct HDL Cholesterol Urine WBC (Auto) Vancomycin Trough Coronavirus (PCR) Crossmatch 07/18/19 07/19/19 07/19/19 23:33 03:45 05:18 WBC RBC Hgb Hct MCV MCH MCHC RDW Plt Count Lymph % (Auto) [place] % (Auto) Lymph # [place] # Baso # Seg Neutrophils % Seg Neuts % (Manual) Lymphocytes % (Manual) Monocytes % (Manual) Basophils % (Manual) Nucleated RBC % Seg Neutrophils # Seg Neutrophils # Man Lymphocytes # (Manual) Monocytes # (Manual) Eosinophils # (Manual) Basophils # (Manual) PT INR D-Dimer ABG pH 7.342 L ABG pO2 95.0 H ABG HCO3 ABG O2 Saturation ABG Base Excess ABG Hemoglobin 8.5 L Oxyhemoglobin Sodium Potassium Chloride Carbon Dioxide BUN Creatinine Glucose POC Glucose 125 H 111 H Lactic Acid Calcium Magnesium Iron TIBC Ferritin AST ALT Lactate Dehydrogenase Troponin T C-Reactive Protein Total Protein Albumin Prealbumin Cholesterol LDL Cholesterol Direct HDL Cholesterol Urine WBC (Auto) Vancomycin Trough Coronavirus (PCR) Crossmatch 07/19/19 07/19/19 07/19/19 08:45 08:45 11:47 WBC 15.9 H RBC 3.31 L Hgb 9.1 L Hct 28.4 L MCV MCH 27 L MCHC RDW 19.1 H Plt Count 858 H Lymph % (Auto) 4.9 L [place] % (Auto) 8.1 H Lymph # 0.8 L [place] # 1.3 H Baso # Seg Neutrophils % 85.5 H Seg Neuts % (Manual) Lymphocytes % (Manual) Monocytes % (Manual) Basophils % (Manual) Nucleated RBC % Seg Neutrophils # 13.6 H Seg Neutrophils # Man Lymphocytes # (Manual) Monocytes # (Manual) Eosinophils # (Manual) Basophils # (Manual) PT INR D-Dimer ABG pH ABG pO2 ABG HCO3 ABG O2 Saturation ABG Base Excess ABG Hemoglobin Oxyhemoglobin Sodium Potassium Chloride 111.6 H Carbon Dioxide BUN 50 H Creatinine 0.7 L Glucose 118 H POC Glucose 114 H Lactic Acid Calcium Magnesium Iron TIBC Ferritin AST ALT Lactate Dehydrogenase Troponin T C-Reactive Protein Total Protein Albumin Prealbumin Cholesterol LDL Cholesterol Direct HDL Cholesterol Urine WBC (Auto) Vancomycin Trough Coronavirus (PCR) Crossmatch 07/19/19 07/19/19 07/20/19 18:25 23:44 04:39 WBC RBC Hgb Hct MCV MCH MCHC RDW Plt Count Lymph % (Auto) [place] % (Auto) Lymph # [place] # Baso # Seg Neutrophils % Seg Neuts % (Manual) Lymphocytes % (Manual) Monocytes % (Manual) Basophils % (Manual) Nucleated RBC % Seg Neutrophils # Seg Neutrophils # Man Lymphocytes # (Manual) Monocytes # (Manual) Eosinophils # (Manual) Basophils # (Manual) PT INR D-Dimer ABG pH ABG pO2 ABG HCO3 ABG O2 Saturation ABG Base Excess ABG Hemoglobin Oxyhemoglobin Sodium Potassium Chloride 110.3 H Carbon Dioxide BUN 44 H Creatinine 0.6 L Glucose 120 H POC Glucose 115 H 117 H Lactic Acid Calcium Magnesium Iron TIBC Ferritin AST ALT Lactate Dehydrogenase Troponin T C-Reactive Protein Total Protein Albumin Prealbumin Cholesterol LDL Cholesterol Direct HDL Cholesterol Urine WBC (Auto) Vancomycin Trough Coronavirus (PCR) Crossmatch 07/20/19 07/21/19 07/21/19 05:30 11:59 17:40 WBC RBC Hgb Hct MCV MCH MCHC RDW Plt Count Lymph % (Auto) [place] % (Auto) Lymph # [place] # Baso # Seg Neutrophils % Seg Neuts % (Manual) Lymphocytes % (Manual) Monocytes % (Manual) Basophils % (Manual) Nucleated RBC % Seg Neutrophils # Seg Neutrophils # Man Lymphocytes # (Manual) Monocytes # (Manual) Eosinophils # (Manual) Basophils # (Manual) PT INR D-Dimer ABG pH ABG pO2 ABG HCO3 ABG O2 Saturation ABG Base Excess ABG Hemoglobin Oxyhemoglobin Sodium Potassium Chloride Carbon Dioxide BUN Creatinine Glucose POC Glucose 131 H 122 H 125 H Lactic Acid Calcium Magnesium Iron TIBC Ferritin AST ALT Lactate Dehydrogenase Troponin T C-Reactive Protein Total Protein Albumin Prealbumin Cholesterol LDL Cholesterol Direct HDL Cholesterol Urine WBC (Auto) Vancomycin Trough Coronavirus (PCR) Crossmatch 07/22/19 07/22/19 07/22/19 05:38 05:38 12:29 WBC 12.6 H RBC 3.19 L Hgb 8.9 L Hct 27.5 L MCV MCH MCHC RDW 18.9 H Plt Count 1101 H* Lymph % (Auto) [place] % (Auto) 12.2 H Lymph # [place] # 1.5 H Baso # Seg Neutrophils % 72.8 H Seg Neuts % (Manual) 76.0 H Lymphocytes % (Manual) 7.0 L Monocytes % (Manual) 14.0 H Basophils % (Manual) Nucleated RBC % 1.0 H Seg Neutrophils # 9.2 H Seg Neutrophils # Man 9.6 H Lymphocytes # (Manual) 0.9 L Monocytes # (Manual) 1.8 H Eosinophils # (Manual) Basophils # (Manual) PT INR D-Dimer ABG pH ABG pO2 ABG HCO3 ABG O2 Saturation ABG Base Excess ABG Hemoglobin Oxyhemoglobin Sodium Potassium 3.4 L Chloride Carbon Dioxide BUN 29 H Creatinine 0.5 L Glucose POC Glucose 116 H Lactic Acid Calcium Magnesium Iron TIBC Ferritin AST ALT Lactate Dehydrogenase Troponin T C-Reactive Protein Total Protein Albumin Prealbumin Cholesterol LDL Cholesterol Direct HDL Cholesterol Urine WBC (Auto) Vancomycin Trough Coronavirus (PCR) Crossmatch 07/22/19 07/22/19 07/23/19 18:20 23:51 04:52 WBC RBC Hgb Hct MCV MCH MCHC RDW Plt Count Lymph % (Auto) [place] % (Auto) Lymph # [place] # Baso # Seg Neutrophils % Seg Neuts % (Manual) Lymphocytes % (Manual) Monocytes % (Manual) Basophils % (Manual) Nucleated RBC % Seg Neutrophils # Seg Neutrophils # Man Lymphocytes # (Manual) Monocytes # (Manual) Eosinophils # (Manual) Basophils # (Manual) PT INR D-Dimer ABG pH ABG pO2 ABG HCO3 ABG O2 Saturation ABG Base Excess ABG Hemoglobin Oxyhemoglobin Sodium Potassium Chloride Carbon Dioxide BUN 24 H Creatinine 0.4 L Glucose POC Glucose 107 H 110 H Lactic Acid Calcium Magnesium Iron TIBC Ferritin AST ALT Lactate Dehydrogenase Troponin T C-Reactive Protein Total Protein Albumin Prealbumin Cholesterol LDL Cholesterol Direct HDL Cholesterol Urine WBC (Auto) Vancomycin Trough Coronavirus (PCR) Crossmatch 07/23/19 07/23/19 07/24/19 06:00 23:15 04:40 WBC RBC Hgb Hct MCV MCH MCHC RDW Plt Count Lymph % (Auto) [place] % (Auto) Lymph # [place] # Baso # Seg Neutrophils % Seg Neuts % (Manual) Lymphocytes % (Manual) Monocytes % (Manual) Basophils % (Manual) Nucleated RBC % Seg Neutrophils # Seg Neutrophils # Man Lymphocytes # (Manual) Monocytes # (Manual) Eosinophils # (Manual) Basophils # (Manual) PT INR D-Dimer ABG pH ABG pO2 73.5 L ABG HCO3 27.0 H 28.5 H ABG O2 Saturation 94.5 L ABG Base Excess ABG Hemoglobin 9.4 L 8.9 L Oxyhemoglobin 94.0 L 92.7 L Sodium Potassium Chloride Carbon Dioxide BUN Creatinine Glucose POC Glucose 117 H Lactic Acid Calcium Magnesium Iron TIBC Ferritin AST ALT Lactate Dehydrogenase Troponin T C-Reactive Protein Total Protein Albumin Prealbumin Cholesterol LDL Cholesterol Direct HDL Cholesterol Urine WBC (Auto) Vancomycin Trough Coronavirus (PCR) Crossmatch 07/24/19 07/24/19 07/25/19 05:25 12:06 00:16 WBC RBC Hgb Hct MCV MCH MCHC RDW Plt Count Lymph % (Auto) [place] % (Auto) Lymph # [place] # Baso # Seg Neutrophils % Seg Neuts % (Manual) Lymphocytes % (Manual) Monocytes % (Manual) Basophils % (Manual) Nucleated RBC % Seg Neutrophils # Seg Neutrophils # Man Lymphocytes # (Manual) Monocytes # (Manual) Eosinophils # (Manual) Basophils # (Manual) PT INR D-Dimer ABG pH ABG pO2 ABG HCO3 ABG O2 Saturation ABG Base Excess ABG Hemoglobin Oxyhemoglobin Sodium Potassium Chloride Carbon Dioxide BUN Creatinine Glucose POC Glucose 114 H 108 H 106 H Lactic Acid Calcium Magnesium Iron TIBC Ferritin AST ALT Lactate Dehydrogenase Troponin T C-Reactive Protein Total Protein Albumin Prealbumin Cholesterol LDL Cholesterol Direct HDL Cholesterol Urine WBC (Auto) Vancomycin Trough Coronavirus (PCR) Crossmatch 07/25/19 07/25/19 07/25/19 05:14 05:14 05:17 WBC 17.8 H RBC 3.32 L Hgb 9.2 L Hct 28.6 L MCV MCH MCHC RDW 19.9 H Plt Count 994 H Lymph % (Auto) [place] % (Auto) Lymph # [place] # Baso # Seg Neutrophils % Seg Neuts % (Manual) 82.0 H Lymphocytes % (Manual) 5.0 L Monocytes % (Manual) Basophils % (Manual) Nucleated RBC % Seg Neutrophils # Seg Neutrophils # Man 14.6 H Lymphocytes # (Manual) 0.9 L Monocytes # (Manual) 1.2 H Eosinophils # (Manual) Basophils # (Manual) PT INR D-Dimer ABG pH ABG pO2 ABG HCO3 ABG O2 Saturation ABG Base Excess ABG Hemoglobin Oxyhemoglobin Sodium Potassium Chloride Carbon Dioxide BUN Creatinine 0.4 L Glucose 110 H POC Glucose 107 H Lactic Acid Calcium Magnesium Iron TIBC Ferritin AST ALT Lactate Dehydrogenase Troponin T C-Reactive Protein Total Protein Albumin Prealbumin Cholesterol LDL Cholesterol Direct HDL Cholesterol Urine WBC (Auto) Vancomycin Trough Coronavirus (PCR) Crossmatch 07/25/19 07/25/19 07/26/19 11:55 23:49 06:01 WBC RBC Hgb Hct MCV MCH MCHC RDW Plt Count Lymph % (Auto) [place] % (Auto) Lymph # [place] # Baso # Seg Neutrophils % Seg Neuts % (Manual) Lymphocytes % (Manual) Monocytes % (Manual) Basophils % (Manual) Nucleated RBC % Seg Neutrophils # Seg Neutrophils # Man Lymphocytes # (Manual) Monocytes # (Manual) Eosinophils # (Manual) Basophils # (Manual) PT INR D-Dimer ABG pH ABG pO2 ABG HCO3 ABG O2 Saturation ABG Base Excess ABG Hemoglobin Oxyhemoglobin Sodium Potassium Chloride Carbon Dioxide BUN Creatinine Glucose POC Glucose 123 H 118 H 106 H Lactic Acid Calcium Magnesium Iron TIBC Ferritin AST ALT Lactate Dehydrogenase Troponin T C-Reactive Protein Total Protein Albumin Prealbumin Cholesterol LDL Cholesterol Direct HDL Cholesterol Urine WBC (Auto) Vancomycin Trough Coronavirus (PCR) Crossmatch 07/26/19 07/27/19 07/27/19 17:02 00:28 05:16 WBC RBC Hgb Hct MCV MCH MCHC RDW Plt Count Lymph % (Auto) [place] % (Auto) Lymph # [place] # Baso # Seg Neutrophils % Seg Neuts % (Manual) Lymphocytes % (Manual) Monocytes % (Manual) Basophils % (Manual) Nucleated RBC % Seg Neutrophils # Seg Neutrophils # Man Lymphocytes # (Manual) Monocytes # (Manual) Eosinophils # (Manual) Basophils # (Manual) PT INR D-Dimer ABG pH ABG pO2 63.4 L ABG HCO3 31.3 H ABG O2 Saturation 92.7 L ABG Base Excess 6.3 H ABG Hemoglobin 7.6 L Oxyhemoglobin 90.9 L Sodium Potassium Chloride Carbon Dioxide BUN Creatinine Glucose POC Glucose 116 H 158 H Lactic Acid Calcium Magnesium Iron TIBC Ferritin AST ALT Lactate Dehydrogenase Troponin T C-Reactive Protein Total Protein Albumin Prealbumin Cholesterol LDL Cholesterol Direct HDL Cholesterol Urine WBC (Auto) Vancomycin Trough Coronavirus (PCR) Crossmatch 07/28/19 07/28/19 07/28/19 10:13 10:13 23:54 WBC 18.5 H RBC 3.20 L Hgb 8.8 L Hct 26.8 L MCV MCH 27 L MCHC RDW 19.9 H Plt Count 730 H Lymph % (Auto) [place] % (Auto) Lymph # [place] # Baso # Seg Neutrophils % Seg Neuts % (Manual) Lymphocytes % (Manual) Monocytes % (Manual) Basophils % (Manual) Nucleated RBC % Seg Neutrophils # Seg Neutrophils # Man Lymphocytes # (Manual) Monocytes # (Manual) Eosinophils # (Manual) Basophils # (Manual) PT INR D-Dimer ABG pH ABG pO2 ABG HCO3 ABG O2 Saturation ABG Base Excess ABG Hemoglobin Oxyhemoglobin Sodium Potassium 3.2 L Chloride 97.5 L Carbon Dioxide 31 H BUN Creatinine 0.5 L Glucose POC Glucose 120 H Lactic Acid Calcium Magnesium Iron TIBC Ferritin AST ALT Lactate Dehydrogenase Troponin T C-Reactive Protein Total Protein Albumin Prealbumin Cholesterol LDL Cholesterol Direct HDL Cholesterol Urine WBC (Auto) Vancomycin Trough Coronavirus (PCR) Crossmatch 07/29/19 07/29/19 07/29/19 11:57 17:43 Unknown WBC RBC Hgb Hct MCV MCH MCHC RDW Plt Count Lymph % (Auto) [place] % (Auto) Lymph # [place] # Baso # Seg Neutrophils % Seg Neuts % (Manual) Lymphocytes % (Manual) Monocytes % (Manual) Basophils % (Manual) Nucleated RBC % Seg Neutrophils # Seg Neutrophils # Man Lymphocytes # (Manual) Monocytes # (Manual) Eosinophils # (Manual) Basophils # (Manual) PT INR D-Dimer ABG pH ABG pO2 ABG HCO3 ABG O2 Saturation ABG Base Excess ABG Hemoglobin Oxyhemoglobin Sodium Potassium Chloride Carbon Dioxide BUN Creatinine Glucose POC Glucose 112 H Lactic Acid Calcium Magnesium Iron TIBC Ferritin AST ALT Lactate Dehydrogenase Troponin T C-Reactive Protein Total Protein Albumin Prealbumin Cholesterol LDL Cholesterol Direct HDL Cholesterol Urine WBC (Auto) 63.0 H Vancomycin Trough Coronavirus (PCR) Positive A Crossmatch 07/30/19 07/30/19 07/30/19 00:20 04:35 04:35 WBC 24.3 H RBC 3.12 L Hgb 8.5 L Hct 26.3 L MCV MCH 27 L MCHC RDW 20.2 H Plt Count 550 H Lymph % (Auto) [place] % (Auto) Lymph # [place] # Baso # Seg Neutrophils % Seg Neuts % (Manual) Lymphocytes % (Manual) Monocytes % (Manual) Basophils % (Manual) Nucleated RBC % Seg Neutrophils # Seg Neutrophils # Man Lymphocytes # (Manual) Monocytes # (Manual) Eosinophils # (Manual) Basophils # (Manual) PT INR D-Dimer ABG pH ABG pO2 ABG HCO3 ABG O2 Saturation ABG Base Excess ABG Hemoglobin Oxyhemoglobin Sodium Potassium 3.0 L Chloride 96.3 L Carbon Dioxide 32 H BUN Creatinine 0.5 L Glucose POC Glucose 106 H Lactic Acid Calcium Magnesium Iron TIBC Ferritin AST ALT Lactate Dehydrogenase Troponin T C-Reactive Protein Total Protein Albumin Prealbumin Cholesterol LDL Cholesterol Direct HDL Cholesterol Urine WBC (Auto) Vancomycin Trough Coronavirus (PCR) Crossmatch 07/31/19 07/31/19 07/31/19 04:42 04:42 11:33 WBC 23.8 H RBC 3.10 L Hgb 8.4 L Hct 26.1 L MCV MCH 27 L MCHC RDW 19.6 H Plt Count 561 H Lymph % (Auto) [place] % (Auto) Lymph # [place] # Baso # Seg Neutrophils % Seg Neuts % (Manual) Lymphocytes % (Manual) Monocytes % (Manual) Basophils % (Manual) Nucleated RBC % Seg Neutrophils # Seg Neutrophils # Man Lymphocytes # (Manual) Monocytes # (Manual) Eosinophils # (Manual) Basophils # (Manual) PT INR D-Dimer ABG pH ABG pO2 ABG HCO3 ABG O2 Saturation ABG Base Excess ABG Hemoglobin Oxyhemoglobin Sodium 135 L Potassium Chloride 93.9 L Carbon Dioxide 32 H BUN Creatinine 0.4 L Glucose POC Glucose 116 H Lactic Acid Calcium Magnesium Iron TIBC Ferritin AST ALT Lactate Dehydrogenase Troponin T C-Reactive Protein Total Protein Albumin 1.6 L Prealbumin 0.037 L Cholesterol LDL Cholesterol Direct HDL Cholesterol Urine WBC (Auto) Vancomycin Trough Coronavirus (PCR) Crossmatch 07/31/19 08/01/19 08/01/19 23:33 04:57 04:57 WBC 26.7 H RBC 3.12 L Hgb 8.5 L Hct 26.3 L MCV MCH 27 L MCHC RDW 19.2 H Plt Count 602 H Lymph % (Auto) [place] % (Auto) Lymph # [place] # Baso # Seg Neutrophils % Seg Neuts % (Manual) 93.0 H Lymphocytes % (Manual) 2.0 L Monocytes % (Manual) Basophils % (Manual) Nucleated RBC % Seg Neutrophils # Seg Neutrophils # Man 24.8 H Lymphocytes # (Manual) 0.5 L Monocytes # (Manual) 1.1 H Eosinophils # (Manual) Basophils # (Manual) PT INR D-Dimer ABG pH ABG pO2 ABG HCO3 ABG O2 Saturation ABG Base Excess ABG Hemoglobin Oxyhemoglobin Sodium 132 L Potassium Chloride 93.8 L Carbon Dioxide 31 H BUN Creatinine 0.3 L Glucose POC Glucose 148 H Lactic Acid Calcium 8.1 L Magnesium Iron TIBC Ferritin AST ALT Lactate Dehydrogenase Troponin T C-Reactive Protein Total Protein Albumin Prealbumin Cholesterol LDL Cholesterol Direct HDL Cholesterol Urine WBC (Auto) Vancomycin Trough Coronavirus (PCR) Crossmatch 08/01/19 08/02/19 08/02/19 12:16 00:22 05:24 WBC RBC Hgb Hct MCV MCH MCHC RDW Plt Count Lymph % (Auto) [place] % (Auto) Lymph # [place] # Baso # Seg Neutrophils % Seg Neuts % (Manual) Lymphocytes % (Manual) Monocytes % (Manual) Basophils % (Manual) Nucleated RBC % Seg Neutrophils # Seg Neutrophils # Man Lymphocytes # (Manual) Monocytes # (Manual) Eosinophils # (Manual) Basophils # (Manual) PT INR D-Dimer ABG pH ABG pO2 ABG HCO3 ABG O2 Saturation ABG Base Excess ABG Hemoglobin Oxyhemoglobin Sodium Potassium Chloride Carbon Dioxide BUN Creatinine Glucose POC Glucose 120 H 119 H 113 H Lactic Acid Calcium Magnesium Iron TIBC Ferritin AST ALT Lactate Dehydrogenase Troponin T C-Reactive Protein Total Protein Albumin Prealbumin Cholesterol LDL Cholesterol Direct HDL Cholesterol Urine WBC (Auto) Vancomycin Trough Coronavirus (PCR) Crossmatch 08/03/19 08/03/19 08/03/19 05:20 12:01 23:48 WBC RBC Hgb Hct MCV MCH MCHC RDW Plt Count Lymph % (Auto) [place] % (Auto) Lymph # [place] # Baso # Seg Neutrophils % Seg Neuts % (Manual) Lymphocytes % (Manual) Monocytes % (Manual) Basophils % (Manual) Nucleated RBC % Seg Neutrophils # Seg Neutrophils # Man Lymphocytes # (Manual) Monocytes # (Manual) Eosinophils # (Manual) Basophils # (Manual) PT INR D-Dimer ABG pH ABG pO2 ABG HCO3 ABG O2 Saturation ABG Base Excess ABG Hemoglobin Oxyhemoglobin Sodium Potassium Chloride Carbon Dioxide BUN Creatinine Glucose POC Glucose 118 H 106 H 120 H Lactic Acid Calcium Magnesium Iron TIBC Ferritin AST ALT Lactate Dehydrogenase Troponin T C-Reactive Protein Total Protein Albumin Prealbumin Cholesterol LDL Cholesterol Direct HDL Cholesterol Urine WBC (Auto) Vancomycin Trough Coronavirus (PCR) Crossmatch 08/04/19 08/04/19 08/04/19 05:38 05:38 06:29 WBC 26.1 H RBC 2.77 L Hgb 7.5 L Hct 23.2 L MCV MCH 27 L MCHC RDW 19.2 H Plt Count 648 H Lymph % (Auto) [place] % (Auto) Lymph # [place] # Baso # Seg Neutrophils % Seg Neuts % (Manual) 90.5 H Lymphocytes % (Manual) 3.5 L Monocytes % (Manual) Basophils % (Manual) Nucleated RBC % Seg Neutrophils # Seg Neutrophils # Man 23.6 H Lymphocytes # (Manual) 0.9 L Monocytes # (Manual) 1.2 H Eosinophils # (Manual) Basophils # (Manual) PT INR D-Dimer ABG pH ABG pO2 ABG HCO3 ABG O2 Saturation ABG Base Excess ABG Hemoglobin Oxyhemoglobin Sodium 132 L Potassium 3.4 L D Chloride 92.7 L Carbon Dioxide 33 H BUN Creatinine 0.2 L Glucose POC Glucose 108 H Lactic Acid Calcium 8.1 L Magnesium Iron TIBC Ferritin AST ALT Lactate Dehydrogenase Troponin T C-Reactive Protein Total Protein Albumin Prealbumin Cholesterol LDL Cholesterol Direct HDL Cholesterol Urine WBC (Auto) Vancomycin Trough Coronavirus (PCR) Crossmatch 08/04/19 08/05/19 08/05/19 12:30 04:58 04:58 WBC 21.0 H RBC 2.63 L Hgb 7.2 L Hct 21.9 L MCV 83 L MCH 27 L MCHC RDW 18.9 H Plt Count 691 H Lymph % (Auto) [place] % (Auto) Lymph # [place] # Baso # Seg Neutrophils % Seg Neuts % (Manual) 86.0 H Lymphocytes % (Manual) 3.0 L Monocytes % (Manual) 10.0 H Basophils % (Manual) Nucleated RBC % Seg Neutrophils # Seg Neutrophils # Man 18.1 H Lymphocytes # (Manual) 0.6 L Monocytes # (Manual) 2.1 H Eosinophils # (Manual) Basophils # (Manual) PT INR D-Dimer ABG pH ABG pO2 ABG HCO3 ABG O2 Saturation ABG Base Excess ABG Hemoglobin Oxyhemoglobin Sodium 134 L Potassium 3.2 L Chloride 93.2 L Carbon Dioxide 34 H BUN 8 L Creatinine 0.3 L Glucose POC Glucose 138 H Lactic Acid Calcium 8.1 L Magnesium Iron TIBC Ferritin AST ALT Lactate Dehydrogenase Troponin T C-Reactive Protein Total Protein Albumin Prealbumin Cholesterol LDL Cholesterol Direct HDL Cholesterol Urine WBC (Auto) Vancomycin Trough Coronavirus (PCR) Crossmatch 08/05/19 08/05/19 08/05/19 11:53 17:57 23:58 WBC RBC Hgb Hct MCV MCH MCHC RDW Plt Count Lymph % (Auto) [place] % (Auto) Lymph # [place] # Baso # Seg Neutrophils % Seg Neuts % (Manual) Lymphocytes % (Manual) Monocytes % (Manual) Basophils % (Manual) Nucleated RBC % Seg Neutrophils # Seg Neutrophils # Man Lymphocytes # (Manual) Monocytes # (Manual) Eosinophils # (Manual) Basophils # (Manual) PT INR D-Dimer ABG pH ABG pO2 ABG HCO3 ABG O2 Saturation ABG Base Excess ABG Hemoglobin Oxyhemoglobin Sodium Potassium Chloride Carbon Dioxide BUN Creatinine Glucose POC Glucose 106 H 111 H 116 H Lactic Acid Calcium Magnesium Iron TIBC Ferritin AST ALT Lactate Dehydrogenase Troponin T C-Reactive Protein Total Protein Albumin Prealbumin Cholesterol LDL Cholesterol Direct HDL Cholesterol Urine WBC (Auto) Vancomycin Trough Coronavirus (PCR) Crossmatch 08/06/19 08/06/19 08/06/19 04:11 04:11 06:04 WBC 20.8 H RBC 2.80 L Hgb 7.6 L Hct 23.5 L MCV MCH 27 L MCHC RDW 19.0 H Plt Count 723 H Lymph % (Auto) [place] % (Auto) Lymph # [place] # Baso # Seg Neutrophils % Seg Neuts % (Manual) 88.0 H Lymphocytes % (Manual) 3.0 L Monocytes % (Manual) Basophils % (Manual) Nucleated RBC % Seg Neutrophils # Seg Neutrophils # Man 18.3 H Lymphocytes # (Manual) 0.6 L Monocytes # (Manual) Eosinophils # (Manual) Basophils # (Manual) 0.2 H PT INR D-Dimer ABG pH ABG pO2 ABG HCO3 ABG O2 Saturation ABG Base Excess ABG Hemoglobin Oxyhemoglobin Sodium Potassium 3.4 L Chloride 95.2 L Carbon Dioxide 32 H BUN Creatinine 0.3 L Glucose POC Glucose 108 H Lactic Acid Calcium 8.2 L Magnesium Iron TIBC Ferritin AST ALT Lactate Dehydrogenase Troponin T C-Reactive Protein Total Protein Albumin Prealbumin Cholesterol LDL Cholesterol Direct HDL Cholesterol Urine WBC (Auto) Vancomycin Trough Coronavirus (PCR) Crossmatch 08/06/19 08/06/19 08/07/19 12:23 17:13 00:21 WBC RBC Hgb Hct MCV MCH MCHC RDW Plt Count Lymph % (Auto) [place] % (Auto) Lymph # [place] # Baso # Seg Neutrophils % Seg Neuts % (Manual) Lymphocytes % (Manual) Monocytes % (Manual) Basophils % (Manual) Nucleated RBC % Seg Neutrophils # Seg Neutrophils # Man Lymphocytes # (Manual) Monocytes # (Manual) Eosinophils # (Manual) Basophils # (Manual) PT INR D-Dimer ABG pH ABG pO2 ABG HCO3 ABG O2 Saturation ABG Base Excess ABG Hemoglobin Oxyhemoglobin Sodium Potassium Chloride Carbon Dioxide BUN Creatinine Glucose POC Glucose 112 H 132 H 147 H Lactic Acid Calcium Magnesium Iron TIBC Ferritin AST ALT Lactate Dehydrogenase Troponin T C-Reactive Protein Total Protein Albumin Prealbumin Cholesterol LDL Cholesterol Direct HDL Cholesterol Urine WBC (Auto) Vancomycin Trough Coronavirus (PCR) Crossmatch 08/07/19 08/07/19 08/07/19 05:16 05:23 05:23 WBC 30.3 H RBC 2.69 L Hgb 7.1 L Hct 22.2 L MCV 83 L MCH 27 L MCHC RDW 19.1 H Plt Count 650 H Lymph % (Auto) [place] % (Auto) Lymph # [place] # Baso # Seg Neutrophils % Seg Neuts % (Manual) 88.0 H Lymphocytes % (Manual) 5.0 L Monocytes % (Manual) Basophils % (Manual) Nucleated RBC % Seg Neutrophils # Seg Neutrophils # Man 26.7 H Lymphocytes # (Manual) Monocytes # (Manual) 2.1 H Eosinophils # (Manual) Basophils # (Manual) PT INR D-Dimer ABG pH ABG pO2 ABG HCO3 ABG O2 Saturation ABG Base Excess ABG Hemoglobin Oxyhemoglobin Sodium 135 L Potassium 3.4 L Chloride 95.4 L Carbon Dioxide 32 H BUN Creatinine 0.4 L Glucose 120 H POC Glucose 120 H Lactic Acid Calcium 7.7 L Magnesium Iron TIBC Ferritin AST ALT Lactate Dehydrogenase Troponin T C-Reactive Protein Total Protein Albumin Prealbumin Cholesterol LDL Cholesterol Direct HDL Cholesterol Urine WBC (Auto) Vancomycin Trough Coronavirus (PCR) Crossmatch 08/07/19 08/07/19 08/07/19 10:24 10:24 11:10 WBC RBC Hgb Hct MCV MCH MCHC RDW Plt Count Lymph % (Auto) [place] % (Auto) Lymph # [place] # Baso # Seg Neutrophils % Seg Neuts % (Manual) Lymphocytes % (Manual) Monocytes % (Manual) Basophils % (Manual) Nucleated RBC % Seg Neutrophils # Seg Neutrophils # Man Lymphocytes # (Manual) Monocytes # (Manual) Eosinophils # (Manual) Basophils # (Manual) PT INR D-Dimer 1808.06 H ABG pH ABG pO2 73.3 L ABG HCO3 33.9 H ABG O2 Saturation ABG Base Excess 9.0 H ABG Hemoglobin 6.3 L Oxyhemoglobin 94.3 L Sodium Potassium Chloride Carbon Dioxide BUN Creatinine Glucose POC Glucose Lactic Acid Calcium Magnesium Iron TIBC Ferritin AST ALT Lactate Dehydrogenase Troponin T C-Reactive Protein 11.10 H Total Protein Albumin Prealbumin Cholesterol LDL Cholesterol Direct HDL Cholesterol Urine WBC (Auto) Vancomycin Trough Coronavirus (PCR) Crossmatch 08/07/19 08/08/19 08/08/19 12:01 04:41 04:41 WBC 22.1 H RBC 2.82 L Hgb 7.7 L Hct 23.6 L MCV MCH 27 L MCHC RDW 19.1 H Plt Count 722 H Lymph % (Auto) [place] % (Auto) Lymph # [place] # Baso # Seg Neutrophils % Seg Neuts % (Manual) 90.0 H Lymphocytes % (Manual) 3.0 L Monocytes % (Manual) Basophils % (Manual) Nucleated RBC % Seg Neutrophils # Seg Neutrophils # Man 19.9 H Lymphocytes # (Manual) 0.7 L Monocytes # (Manual) 1.3 H Eosinophils # (Manual) Basophils # (Manual) PT INR D-Dimer ABG pH ABG pO2 ABG HCO3 ABG O2 Saturation ABG Base Excess ABG Hemoglobin Oxyhemoglobin Sodium 136 L Potassium Chloride 97.8 L Carbon Dioxide BUN Creatinine 0.3 L Glucose 105 H POC Glucose 130 H Lactic Acid Calcium 7.8 L Magnesium Iron TIBC Ferritin AST ALT Lactate Dehydrogenase Troponin T C-Reactive Protein Total Protein Albumin Prealbumin Cholesterol LDL Cholesterol Direct HDL Cholesterol Urine WBC (Auto) Vancomycin Trough Coronavirus (PCR) Crossmatch 08/08/19 08/08/19 08/09/19 11:46 18:35 00:12 WBC RBC Hgb Hct MCV MCH MCHC RDW Plt Count Lymph % (Auto) [place] % (Auto) Lymph # [place] # Baso # Seg Neutrophils % Seg Neuts % (Manual) Lymphocytes % (Manual) Monocytes % (Manual) Basophils % (Manual) Nucleated RBC % Seg Neutrophils # Seg Neutrophils # Man Lymphocytes # (Manual) Monocytes # (Manual) Eosinophils # (Manual) Basophils # (Manual) PT INR D-Dimer ABG pH ABG pO2 ABG HCO3 ABG O2 Saturation ABG Base Excess ABG Hemoglobin Oxyhemoglobin Sodium Potassium Chloride Carbon Dioxide BUN Creatinine Glucose POC Glucose 117 H 117 H 117 H Lactic Acid Calcium Magnesium Iron TIBC Ferritin AST ALT Lactate Dehydrogenase Troponin T C-Reactive Protein Total Protein Albumin Prealbumin Cholesterol LDL Cholesterol Direct HDL Cholesterol Urine WBC (Auto) Vancomycin Trough Coronavirus (PCR) Crossmatch 08/09/19 08/09/19 08/09/19 05:33 12:22 17:48 WBC RBC Hgb Hct MCV MCH MCHC RDW Plt Count Lymph % (Auto) [place] % (Auto) Lymph # [place] # Baso # Seg Neutrophils % Seg Neuts % (Manual) Lymphocytes % (Manual) Monocytes % (Manual) Basophils % (Manual) Nucleated RBC % Seg Neutrophils # Seg Neutrophils # Man Lymphocytes # (Manual) Monocytes # (Manual) Eosinophils # (Manual) Basophils # (Manual) PT INR D-Dimer ABG pH ABG pO2 ABG HCO3 ABG O2 Saturation ABG Base Excess ABG Hemoglobin Oxyhemoglobin Sodium Potassium Chloride Carbon Dioxide BUN Creatinine Glucose POC Glucose 119 H 133 H 123 H Lactic Acid Calcium Magnesium Iron TIBC Ferritin AST ALT Lactate Dehydrogenase Troponin T C-Reactive Protein Total Protein Albumin Prealbumin Cholesterol LDL Cholesterol Direct HDL Cholesterol Urine WBC (Auto) Vancomycin Trough Coronavirus (PCR) Crossmatch 05/21/20 05/21/20 05/22/20 17:59 18:15 00:02 WBC RBC Hgb 6.7 L Hct 20.4 L MCV MCH MCHC RDW Plt Count Lymph % (Auto) [place] % (Auto) Lymph # [place] # Baso # Seg Neutrophils % Seg Neuts % (Manual) Lymphocytes % (Manual) Monocytes % (Manual) Basophils % (Manual) Nucleated RBC % Seg Neutrophils # Seg Neutrophils # Man Lymphocytes # (Manual) Monocytes # (Manual) Eosinophils # (Manual) Basophils # (Manual) PT INR D-Dimer ABG pH ABG pO2 ABG HCO3 ABG O2 Saturation ABG Base Excess ABG Hemoglobin Oxyhemoglobin Sodium Potassium Chloride Carbon Dioxide BUN Creatinine Glucose POC Glucose 124 H Lactic Acid Calcium Magnesium Iron TIBC Ferritin AST ALT Lactate Dehydrogenase Troponin T C-Reactive Protein Total Protein Albumin Prealbumin Cholesterol LDL Cholesterol Direct HDL Cholesterol Urine WBC (Auto) Vancomycin Trough Coronavirus (PCR) Crossmatch See Detail 08/10/19 08/10/19 08/10/19 05:47 08:00 08:00 WBC 16.9 H RBC 2.94 L Hgb 8.2 L Hct 24.9 L MCV MCH MCHC RDW 17.0 H Plt Count 661 H Lymph % (Auto) [place] % (Auto) Lymph # [place] # Baso # Seg Neutrophils % Seg Neuts % (Manual) Lymphocytes % (Manual) Monocytes % (Manual) Basophils % (Manual) Nucleated RBC % Seg Neutrophils # Seg Neutrophils # Man Lymphocytes # (Manual) Monocytes # (Manual) Eosinophils # (Manual) Basophils # (Manual) PT INR D-Dimer ABG pH ABG pO2 ABG HCO3 ABG O2 Saturation ABG Base Excess ABG Hemoglobin Oxyhemoglobin Sodium Potassium Chloride Carbon Dioxide BUN Creatinine 0.3 L Glucose 116 H POC Glucose 148 H Lactic Acid Calcium 7.7 L Magnesium Iron TIBC Ferritin AST ALT Lactate Dehydrogenase Troponin T C-Reactive Protein Total Protein Albumin Prealbumin Cholesterol LDL Cholesterol Direct HDL Cholesterol Urine WBC (Auto) Vancomycin Trough Coronavirus (PCR) Crossmatch 08/10/19 08/10/19 08/10/19 12:38 18:06 23:56 WBC RBC Hgb Hct MCV MCH MCHC RDW Plt Count Lymph % (Auto) [place] % (Auto) Lymph # [place] # Baso # Seg Neutrophils % Seg Neuts % (Manual) Lymphocytes % (Manual) Monocytes % (Manual) Basophils % (Manual) Nucleated RBC % Seg Neutrophils # Seg Neutrophils # Man Lymphocytes # (Manual) Monocytes # (Manual) Eosinophils # (Manual) Basophils # (Manual) PT INR D-Dimer ABG pH ABG pO2 ABG HCO3 ABG O2 Saturation ABG Base Excess ABG Hemoglobin Oxyhemoglobin Sodium Potassium Chloride Carbon Dioxide BUN Creatinine Glucose POC Glucose 113 H 126 H 115 H Lactic Acid Calcium Magnesium Iron TIBC Ferritin AST ALT Lactate Dehydrogenase Troponin T C-Reactive Protein Total Protein Albumin Prealbumin Cholesterol LDL Cholesterol Direct HDL Cholesterol Urine WBC (Auto) Vancomycin Trough Coronavirus (PCR) Crossmatch 08/10/19 08/11/19 08/12/19 Unknown 18:10 03:30 WBC 14.4 H RBC 2.58 L Hgb 7.4 L Hct 22.1 L MCV MCH MCHC RDW 17.4 H Plt Count 786 H Lymph % (Auto) [place] % (Auto) Lymph # [place] # Baso # Seg Neutrophils % Seg Neuts % (Manual) Lymphocytes % (Manual) Monocytes % (Manual) Basophils % (Manual) Nucleated RBC % Seg Neutrophils # Seg Neutrophils # Man Lymphocytes # (Manual) Monocytes # (Manual) Eosinophils # (Manual) Basophils # (Manual) PT INR D-Dimer ABG pH ABG pO2 ABG HCO3 ABG O2 Saturation ABG Base Excess ABG Hemoglobin Oxyhemoglobin Sodium Potassium Chloride Carbon Dioxide BUN Creatinine Glucose POC Glucose 106 H Lactic Acid Calcium Magnesium Iron TIBC Ferritin AST ALT Lactate Dehydrogenase Troponin T C-Reactive Protein Total Protein Albumin Prealbumin Cholesterol LDL Cholesterol Direct HDL Cholesterol Urine WBC (Auto) Vancomycin Trough Coronavirus (PCR) Positive A Crossmatch 08/12/19 08/12/19 08/13/19 03:30 12:08 05:25 WBC RBC Hgb Hct MCV MCH MCHC RDW Plt Count Lymph % (Auto) [place] % (Auto) Lymph # [place] # Baso # Seg Neutrophils % Seg Neuts % (Manual) Lymphocytes % (Manual) Monocytes % (Manual) Basophils % (Manual) Nucleated RBC % Seg Neutrophils # Seg Neutrophils # Man Lymphocytes # (Manual) Monocytes # (Manual) Eosinophils # (Manual) Basophils # (Manual) PT INR D-Dimer ABG pH ABG pO2 ABG HCO3 ABG O2 Saturation ABG Base Excess ABG Hemoglobin Oxyhemoglobin Sodium Potassium Chloride Carbon Dioxide BUN 7 L Creatinine 0.3 L Glucose 117 H POC Glucose 112 H 126 H Lactic Acid Calcium 7.8 L Magnesium Iron TIBC Ferritin AST ALT Lactate Dehydrogenase Troponin T C-Reactive Protein Total Protein Albumin Prealbumin Cholesterol LDL Cholesterol Direct HDL Cholesterol Urine WBC (Auto) Vancomycin Trough Coronavirus (PCR) Crossmatch 08/13/19 08/13/19 08/13/19 11:36 17:10 19:06 WBC RBC Hgb Hct MCV MCH MCHC RDW Plt Count Lymph % (Auto) [place] % (Auto) Lymph # [place] # Baso # Seg Neutrophils % Seg Neuts % (Manual) Lymphocytes % (Manual) Monocytes % (Manual) Basophils % (Manual) Nucleated RBC % Seg Neutrophils # Seg Neutrophils # Man Lymphocytes # (Manual) Monocytes # (Manual) Eosinophils # (Manual) Basophils # (Manual) PT INR D-Dimer ABG pH ABG pO2 105.0 H ABG HCO3 28.5 H ABG O2 Saturation ABG Base Excess 3.5 H ABG Hemoglobin 7.8 L Oxyhemoglobin Sodium Potassium Chloride Carbon Dioxide BUN Creatinine Glucose POC Glucose 143 H 107 H Lactic Acid Calcium Magnesium Iron TIBC Ferritin AST ALT Lactate Dehydrogenase Troponin T C-Reactive Protein Total Protein Albumin Prealbumin Cholesterol LDL Cholesterol Direct HDL Cholesterol Urine WBC (Auto) Vancomycin Trough Coronavirus (PCR) Crossmatch 08/13/19 08/14/19 08/14/19 23:23 05:00 05:00 WBC 14.3 H RBC 2.76 L Hgb 7.8 L Hct 23.9 L MCV MCH MCHC RDW 18.7 H Plt Count 896 H Lymph % (Auto) [place] % (Auto) Lymph # [place] # Baso # Seg Neutrophils % Seg Neuts % (Manual) Lymphocytes % (Manual) Monocytes % (Manual) Basophils % (Manual) Nucleated RBC % Seg Neutrophils # Seg Neutrophils # Man Lymphocytes # (Manual) Monocytes # (Manual) Eosinophils # (Manual) Basophils # (Manual) PT INR D-Dimer ABG pH ABG pO2 ABG HCO3 ABG O2 Saturation ABG Base Excess ABG Hemoglobin Oxyhemoglobin Sodium Potassium Chloride Carbon Dioxide BUN 6 L Creatinine 0.3 L Glucose POC Glucose 125 H Lactic Acid Calcium 8.2 L Magnesium Iron TIBC Ferritin AST ALT Lactate Dehydrogenase Troponin T C-Reactive Protein Total Protein Albumin Prealbumin Cholesterol LDL Cholesterol Direct HDL Cholesterol Urine WBC (Auto) Vancomycin Trough Coronavirus (PCR) Crossmatch 08/14/19 08/15/19 08/15/19 05:07 00:25 05:42 WBC RBC Hgb Hct MCV MCH MCHC RDW Plt Count Lymph % (Auto) [place] % (Auto) Lymph # [place] # Baso # Seg Neutrophils % Seg Neuts % (Manual) Lymphocytes % (Manual) Monocytes % (Manual) Basophils % (Manual) Nucleated RBC % Seg Neutrophils # Seg Neutrophils # Man Lymphocytes # (Manual) Monocytes # (Manual) Eosinophils # (Manual) Basophils # (Manual) PT INR D-Dimer ABG pH ABG pO2 ABG HCO3 ABG O2 Saturation ABG Base Excess ABG Hemoglobin Oxyhemoglobin Sodium Potassium Chloride Carbon Dioxide BUN Creatinine Glucose POC Glucose 128 H 117 H 115 H Lactic Acid Calcium Magnesium Iron TIBC Ferritin AST ALT Lactate Dehydrogenase Troponin T C-Reactive Protein Total Protein Albumin Prealbumin Cholesterol LDL Cholesterol Direct HDL Cholesterol Urine WBC (Auto) Vancomycin Trough Coronavirus (PCR) Crossmatch 08/15/19 08/15/19 08/15/19 06:10 06:10 06:10 WBC 11.6 H RBC 2.68 L Hgb 7.7 L Hct 23.3 L MCV MCH MCHC RDW 19.2 H Plt Count 885 H Lymph % (Auto) [place] % (Auto) Lymph # [place] # Baso # Seg Neutrophils % Seg Neuts % (Manual) Lymphocytes % (Manual) Monocytes % (Manual) Basophils % (Manual) Nucleated RBC % Seg Neutrophils # Seg Neutrophils # Man Lymphocytes # (Manual) Monocytes # (Manual) Eosinophils # (Manual) Basophils # (Manual) PT INR D-Dimer ABG pH ABG pO2 ABG HCO3 ABG O2 Saturation ABG Base Excess ABG Hemoglobin Oxyhemoglobin Sodium Potassium Chloride Carbon Dioxide BUN 6 L Creatinine 0.3 L Glucose 107 H POC Glucose Lactic Acid Calcium 8.2 L Magnesium 1.50 L Iron TIBC Ferritin AST ALT Lactate Dehydrogenase Troponin T C-Reactive Protein Total Protein Albumin Prealbumin Cholesterol LDL Cholesterol Direct HDL Cholesterol Urine WBC (Auto) Vancomycin Trough Coronavirus (PCR) Crossmatch 08/15/19 08/16/19 08/16/19 12:12 00:05 05:00 WBC 13.3 H RBC 2.87 L Hgb 8.1 L Hct 24.9 L MCV MCH MCHC RDW 18.7 H Plt Count 962 H Lymph % (Auto) [place] % (Auto) Lymph # [place] # Baso # Seg Neutrophils % Seg Neuts % (Manual) Lymphocytes % (Manual) Monocytes % (Manual) Basophils % (Manual) Nucleated RBC % Seg Neutrophils # Seg Neutrophils # Man Lymphocytes # (Manual) Monocytes # (Manual) Eosinophils # (Manual) Basophils # (Manual) PT INR D-Dimer ABG pH ABG pO2 ABG HCO3 ABG O2 Saturation ABG Base Excess ABG Hemoglobin Oxyhemoglobin Sodium Potassium Chloride Carbon Dioxide BUN Creatinine Glucose POC Glucose 112 H 111 H Lactic Acid Calcium Magnesium Iron TIBC Ferritin AST ALT Lactate Dehydrogenase Troponin T C-Reactive Protein Total Protein Albumin Prealbumin Cholesterol LDL Cholesterol Direct HDL Cholesterol Urine WBC (Auto) Vancomycin Trough Coronavirus (PCR) Crossmatch 08/16/19 08/16/19 08/16/19 05:00 05:00 23:35 WBC RBC Hgb Hct MCV MCH MCHC RDW Plt Count Lymph % (Auto) [place] % (Auto) Lymph # [place] # Baso # Seg Neutrophils % Seg Neuts % (Manual) Lymphocytes % (Manual) Monocytes % (Manual) Basophils % (Manual) Nucleated RBC % Seg Neutrophils # Seg Neutrophils # Man Lymphocytes # (Manual) Monocytes # (Manual) Eosinophils # (Manual) Basophils # (Manual) PT INR D-Dimer ABG pH ABG pO2 ABG HCO3 ABG O2 Saturation ABG Base Excess ABG Hemoglobin Oxyhemoglobin Sodium 135 L Potassium Chloride Carbon Dioxide BUN 6 L Creatinine 0.3 L Glucose POC Glucose 108 H Lactic Acid Calcium 8.2 L Magnesium Iron TIBC Ferritin AST ALT Lactate Dehydrogenase Troponin T C-Reactive Protein 2.70 H Total Protein Albumin 2.1 L Prealbumin Cholesterol LDL Cholesterol Direct HDL Cholesterol Urine WBC (Auto) Vancomycin Trough Coronavirus (PCR) Crossmatch 08/17/19 08/17/19 08/17/19 05:15 20:20 23:42 WBC RBC Hgb Hct MCV MCH MCHC RDW Plt Count Lymph % (Auto) [place] % (Auto) Lymph # [place] # Baso # Seg Neutrophils % Seg Neuts % (Manual) Lymphocytes % (Manual) Monocytes % (Manual) Basophils % (Manual) Nucleated RBC % Seg Neutrophils # Seg Neutrophils # Man Lymphocytes # (Manual) Monocytes # (Manual) Eosinophils # (Manual) Basophils # (Manual) PT INR D-Dimer ABG pH ABG pO2 ABG HCO3 27.8 H ABG O2 Saturation ABG Base Excess ABG Hemoglobin 11.4 L Oxyhemoglobin 94.6 L Sodium Potassium Chloride Carbon Dioxide BUN Creatinine Glucose POC Glucose 138 H 132 H Lactic Acid Calcium Magnesium Iron TIBC Ferritin AST ALT Lactate Dehydrogenase Troponin T C-Reactive Protein Total Protein Albumin Prealbumin Cholesterol LDL Cholesterol Direct HDL Cholesterol Urine WBC (Auto) Vancomycin Trough Coronavirus (PCR) Crossmatch 08/18/19 08/18/19 08/18/19 06:00 06:00 12:02 WBC 19.7 H RBC 3.30 L Hgb 9.3 L Hct 28.5 L MCV MCH MCHC RDW 18.9 H Plt Count 923 H Lymph % (Auto) [place] % (Auto) Lymph # [place] # Baso # Seg Neutrophils % Seg Neuts % (Manual) Lymphocytes % (Manual) Monocytes % (Manual) Basophils % (Manual) Nucleated RBC % Seg Neutrophils # Seg Neutrophils # Man Lymphocytes # (Manual) Monocytes # (Manual) Eosinophils # (Manual) Basophils # (Manual) PT INR D-Dimer ABG pH ABG pO2 ABG HCO3 ABG O2 Saturation ABG Base Excess ABG Hemoglobin Oxyhemoglobin Sodium 136 L Potassium Chloride Carbon Dioxide BUN Creatinine 0.4 L Glucose 71 L POC Glucose 123 H Lactic Acid Calcium Magnesium Iron TIBC Ferritin AST ALT Lactate Dehydrogenase Troponin T C-Reactive Protein Total Protein Albumin Prealbumin Cholesterol LDL Cholesterol Direct HDL Cholesterol Urine WBC (Auto) Vancomycin Trough Coronavirus (PCR) Crossmatch 08/18/19 08/18/19 08/19/19 18:23 23:16 04:57 WBC RBC Hgb Hct MCV MCH MCHC RDW Plt Count Lymph % (Auto) [place] % (Auto) Lymph # [place] # Baso # Seg Neutrophils % Seg Neuts % (Manual) Lymphocytes % (Manual) Monocytes % (Manual) Basophils % (Manual) Nucleated RBC % Seg Neutrophils # Seg Neutrophils # Man Lymphocytes # (Manual) Monocytes # (Manual) Eosinophils # (Manual) Basophils # (Manual) PT INR D-Dimer ABG pH ABG pO2 ABG HCO3 ABG O2 Saturation ABG Base Excess ABG Hemoglobin Oxyhemoglobin Sodium Potassium Chloride Carbon Dioxide BUN Creatinine Glucose POC Glucose 140 H 159 H 134 H Lactic Acid Calcium Magnesium Iron TIBC Ferritin AST ALT Lactate Dehydrogenase Troponin T C-Reactive Protein Total Protein Albumin Prealbumin Cholesterol LDL Cholesterol Direct HDL Cholesterol Urine WBC (Auto) Vancomycin Trough Coronavirus (PCR) Crossmatch 08/19/19 08/19/19 08/19/19 07:44 08:17 18:15 WBC 30.5 H RBC 2.87 L Hgb 7.9 L Hct 24.5 L MCV MCH MCHC RDW 18.8 H Plt Count 772 H Lymph % (Auto) [place] % (Auto) Lymph # [place] # Baso # Seg Neutrophils % Seg Neuts % (Manual) 89.0 H Lymphocytes % (Manual) 4.0 L Monocytes % (Manual) Basophils % (Manual) 2.0 H Nucleated RBC % Seg Neutrophils # Seg Neutrophils # Man 27.1 H Lymphocytes # (Manual) Monocytes # (Manual) 0.9 H Eosinophils # (Manual) 0.6 H Basophils # (Manual) 0.6 H PT INR D-Dimer ABG pH ABG pO2 ABG HCO3 ABG O2 Saturation ABG Base Excess ABG Hemoglobin Oxyhemoglobin Sodium 136 L Potassium Chloride Carbon Dioxide BUN Creatinine 0.3 L Glucose POC Glucose 106 H Lactic Acid Calcium 8.2 L Magnesium Iron TIBC Ferritin AST ALT Lactate Dehydrogenase Troponin T C-Reactive Protein Total Protein Albumin Prealbumin Cholesterol LDL Cholesterol Direct HDL Cholesterol Urine WBC (Auto) Vancomycin Trough Coronavirus (PCR) Crossmatch 08/19/19 08/20/19 08/20/19 23:46 06:20 18:34 WBC RBC Hgb Hct MCV MCH MCHC RDW Plt Count Lymph % (Auto) [place] % (Auto) Lymph # [place] # Baso # Seg Neutrophils % Seg Neuts % (Manual) Lymphocytes % (Manual) Monocytes % (Manual) Basophils % (Manual) Nucleated RBC % Seg Neutrophils # Seg Neutrophils # Man Lymphocytes # (Manual) Monocytes # (Manual) Eosinophils # (Manual) Basophils # (Manual) PT INR D-Dimer ABG pH ABG pO2 ABG HCO3 ABG O2 Saturation ABG Base Excess ABG Hemoglobin Oxyhemoglobin Sodium Potassium Chloride Carbon Dioxide BUN Creatinine Glucose POC Glucose 144 H 115 H 125 H Lactic Acid Calcium Magnesium Iron TIBC Ferritin AST ALT Lactate Dehydrogenase Troponin T C-Reactive Protein Total Protein Albumin Prealbumin Cholesterol LDL Cholesterol Direct HDL Cholesterol Urine WBC (Auto) Vancomycin Trough Coronavirus (PCR) Crossmatch 08/20/19 08/20/19 08/21/19 Unknown Unknown 11:56 WBC 18.7 H RBC 2.70 L Hgb 7.6 L Hct 23.1 L MCV MCH MCHC RDW 18.9 H Plt Count 690 H Lymph % (Auto) [place] % (Auto) Lymph # [place] # Baso # Seg Neutrophils % Seg Neuts % (Manual) Lymphocytes % (Manual) Monocytes % (Manual) Basophils % (Manual) Nucleated RBC % Seg Neutrophils # Seg Neutrophils # Man Lymphocytes # (Manual) Monocytes # (Manual) Eosinophils # (Manual) Basophils # (Manual) PT INR D-Dimer ABG pH ABG pO2 ABG HCO3 ABG O2 Saturation ABG Base Excess ABG Hemoglobin Oxyhemoglobin Sodium 134 L Potassium Chloride 97.9 L Carbon Dioxide BUN Creatinine 0.3 L Glucose 115 H POC Glucose 116 H Lactic Acid Calcium 8.2 L Magnesium Iron TIBC Ferritin AST ALT Lactate Dehydrogenase Troponin T C-Reactive Protein Total Protein Albumin Prealbumin Cholesterol LDL Cholesterol Direct HDL Cholesterol Urine WBC (Auto) Vancomycin Trough Coronavirus (PCR) Crossmatch 08/21/19 08/22/19 08/22/19 18:14 00:31 05:53 WBC RBC Hgb Hct MCV MCH MCHC RDW Plt Count Lymph % (Auto) [place] % (Auto) Lymph # [place] # Baso # Seg Neutrophils % Seg Neuts % (Manual) Lymphocytes % (Manual) Monocytes % (Manual) Basophils % (Manual) Nucleated RBC % Seg Neutrophils # Seg Neutrophils # Man Lymphocytes # (Manual) Monocytes # (Manual) Eosinophils # (Manual) Basophils # (Manual) PT INR D-Dimer ABG pH ABG pO2 ABG HCO3 ABG O2 Saturation ABG Base Excess ABG Hemoglobin Oxyhemoglobin Sodium Potassium Chloride Carbon Dioxide BUN Creatinine Glucose POC Glucose 113 H 106 H 109 H Lactic Acid Calcium Magnesium Iron TIBC Ferritin AST ALT Lactate Dehydrogenase Troponin T C-Reactive Protein Total Protein Albumin Prealbumin Cholesterol LDL Cholesterol Direct HDL Cholesterol Urine WBC (Auto) Vancomycin Trough Coronavirus (PCR) Crossmatch 08/22/19 08/23/19 08/23/19 18:35 00:18 06:00 WBC 12.3 H RBC 2.92 L Hgb 8.0 L Hct 24.6 L MCV MCH MCHC RDW 18.5 H Plt Count 661 H Lymph % (Auto) 11.7 L [place] % (Auto) 9.2 H Lymph # [place] # 1.1 H Baso # Seg Neutrophils % 75.6 H Seg Neuts % (Manual) Lymphocytes % (Manual) Monocytes % (Manual) Basophils % (Manual) Nucleated RBC % Seg Neutrophils # 9.3 H Seg Neutrophils # Man Lymphocytes # (Manual) Monocytes # (Manual) Eosinophils # (Manual) Basophils # (Manual) PT INR D-Dimer ABG pH ABG pO2 ABG HCO3 ABG O2 Saturation ABG Base Excess ABG Hemoglobin Oxyhemoglobin Sodium Potassium Chloride Carbon Dioxide BUN Creatinine Glucose POC Glucose 130 H 124 H Lactic Acid Calcium Magnesium Iron TIBC Ferritin AST ALT Lactate Dehydrogenase Troponin T C-Reactive Protein Total Protein Albumin Prealbumin Cholesterol LDL Cholesterol Direct HDL Cholesterol Urine WBC (Auto) Vancomycin Trough Coronavirus (PCR) Crossmatch 08/23/19 08/23/19 08/24/19 06:09 17:46 00:04 WBC RBC Hgb Hct MCV MCH MCHC RDW Plt Count Lymph % (Auto) [place] % (Auto) Lymph # [place] # Baso # Seg Neutrophils % Seg Neuts % (Manual) Lymphocytes % (Manual) Monocytes % (Manual) Basophils % (Manual) Nucleated RBC % Seg Neutrophils # Seg Neutrophils # Man Lymphocytes # (Manual) Monocytes # (Manual) Eosinophils # (Manual) Basophils # (Manual) PT INR D-Dimer ABG pH ABG pO2 ABG HCO3 ABG O2 Saturation ABG Base Excess ABG Hemoglobin Oxyhemoglobin Sodium Potassium Chloride Carbon Dioxide BUN Creatinine Glucose POC Glucose 117 H 125 H 113 H Lactic Acid Calcium Magnesium Iron TIBC Ferritin AST ALT Lactate Dehydrogenase Troponin T C-Reactive Protein Total Protein Albumin Prealbumin Cholesterol LDL Cholesterol Direct HDL Cholesterol Urine WBC (Auto) Vancomycin Trough Coronavirus (PCR) Crossmatch 08/24/19 08/24/19 08/24/19 05:34 12:28 17:32 WBC RBC Hgb Hct MCV MCH MCHC RDW Plt Count Lymph % (Auto) [place] % (Auto) Lymph # [place] # Baso # Seg Neutrophils % Seg Neuts % (Manual) Lymphocytes % (Manual) Monocytes % (Manual) Basophils % (Manual) Nucleated RBC % Seg Neutrophils # Seg Neutrophils # Man Lymphocytes # (Manual) Monocytes # (Manual) Eosinophils # (Manual) Basophils # (Manual) PT INR D-Dimer ABG pH ABG pO2 ABG HCO3 ABG O2 Saturation ABG Base Excess ABG Hemoglobin Oxyhemoglobin Sodium Potassium Chloride Carbon Dioxide BUN Creatinine Glucose POC Glucose 128 H 127 H 116 H Lactic Acid Calcium Magnesium Iron TIBC Ferritin AST ALT Lactate Dehydrogenase Troponin T C-Reactive Protein Total Protein Albumin Prealbumin Cholesterol LDL Cholesterol Direct HDL Cholesterol Urine WBC (Auto) Vancomycin Trough Coronavirus (PCR) Crossmatch 08/24/19 08/25/19 23:41 05:37 WBC RBC Hgb Hct MCV MCH MCHC RDW Plt Count Lymph % (Auto) [place] % (Auto) Lymph # [place] # Baso # Seg Neutrophils % Seg Neuts % (Manual) Lymphocytes % (Manual) Monocytes % (Manual) Basophils % (Manual) Nucleated RBC % Seg Neutrophils # Seg Neutrophils # Man Lymphocytes # (Manual) Monocytes # (Manual) Eosinophils # (Manual) Basophils # (Manual) PT INR D-Dimer ABG pH ABG pO2 ABG HCO3 ABG O2 Saturation ABG Base Excess ABG Hemoglobin Oxyhemoglobin Sodium Potassium Chloride Carbon Dioxide BUN Creatinine Glucose POC Glucose 107 H 129 H Lactic Acid Calcium Magnesium Iron TIBC Ferritin AST ALT Lactate Dehydrogenase Troponin T C-Reactive Protein Total Protein Albumin Prealbumin Cholesterol LDL Cholesterol Direct HDL Cholesterol Urine WBC (Auto) Vancomycin Trough Coronavirus (PCR) Crossmatch Allied health notes reviewed: nursing
[2019-08-25] MEDS: GLYCOPYRROLATE 1 MG TAB PO SCH ×3 (07:21→23:50)
[2019-08-25] MEDS: fentaNYL 100 MCG/2 ML INJ IV PRN ×2 (07:22→17:48)
[2019-08-25] MEDS: FAMOTIDINE 20 MG TAB PO SCH ×2 (09:40→23:35)
[2019-08-25] MEDS: ASPIRIN 81 MG TAB CHEW PO SCH (09:40)
[2019-08-25] MEDS: FOLIC ACID 1 MG TAB PO SCH (09:40)
[2019-08-25] MEDS: levETIRAcetam 500 MG/5 ML ORAL LIQD FEEDTUBE SCH ×2 (09:41→23:35)
[2019-08-25] MEDS: ENOXAPARIN 40 MG/0.4 ML INJ SUB-Q SCH (09:41)
[2019-08-25] MEDS: SODIUM HYPOCHLORITE, DAKIN'S 1/2 STRENGTH (0.25%) 473 ML TOPICAL SOLN TP SCH ×2 (09:42→23:37)
--- NOTE | 2019-08-25 09:42 | Progress Note ---
Assessment and Plan Assessment and plan: Awaiting trach and PEG, scheduled for 08/31/2019 08/25/2019: Patient's has blood pressure in the lower range, probably due to the metoprolol that was started yesterday for tachycardia We will closely monitor and adjust dose of medication, consider fluid bolus, unable to wean, Pending trach and PEG -- Acute hypoxic respiratory Failure vent dependent Unable to wean, planning trach and PEG Patient needs to have a negative COVID for the procedure Patient's COVID-19 test is negative[08/20/2019] --Bilateral PNA with COVID 19 infection. On ventilatory support, unable to wean Pulmonary critical following --COVid positive pneumonia with severe sepsis Possible abscess, no need for drianage per ID/pULM Received Plaquenil and cefepime, monitor off antibiotics --Recurrent fever: Afebrile now --COPD with exacerbation Likely due to COVID-19 pneumonia Continue scheduled nebs --Acute metabolic encephalopathy: Unchanged despite no sedation --Septic shock: Off pressors Monitor blood pressures, fluid bolus if needed --Anemia, Microcytic persistent s/p total 6 unit of PRBC, H&H low stable --Pressure Ulcers: concerning for osteomylitis POA/ Scrotal ulcers buttocks, right lateral foot area, wound and supportive care --Hyponatremia, resolved --DM type 2: Accu-Chek SCC tube feeding, insulin as needed --h/o HTN Essential, BP in the lower range --Seizure D/o/CVA/immobility/BIpolar D/o/SCZ Seizure precautions, antiepileptic medications --Severe PCM, TF supportive care, dietary following --DNR status Very poor prognosis, Recommend hospice Awaiting trach and PEG, after the procedure patient will be transferred to LTAC 08/16: Awaiting negative COVID test for placement of trach and PEG. In the meantime we will continue aggressive attempt to wean patient. Cultures have been reviewed and discussed with infectious disease who is managing treatment at this time. Continue wound care dressing. Multiple skin tears were noted on admission will continue to follow. Patient receiving repeat chest x-ray reviewed today shows stable bilateral pulmonary disease and no acuity noted on KUB due to persistent fever ID reviewing increases acidophil wondering if there is drug fever will follow closely. Prognosis remains guarded. 08/17: Continue current management, monitor WBC, mildly elevated. 08/18: Remains on full ventilatory support mental status still unchanged. Co ntinue supportive care. Antibiotics adjustment per ID. Discussed with nursing staff will do some wound dressing changes today to see progression. My understanding was that the wounds did have significant bleed last time but tamponaded. Will monitor in the setting of anemia. 08/19: Remains on full ventilatory support mental status still unchanged. Repeat COVID19 Testing to allow for Trach and Peg and transfer to LTAC. Continue supportive care. Antibiotics adjustment per ID. poor prognosis. b/l chest xray unchanged. continue wound care 08/21/2019: COVID test negative,reconsult surgery for possible trach and PEG , remains intubated on vent 08/22/2019: Surgery reevaluated, scheduled trach and PEG for 08/31/2019 .patient is on vent support 08/23/2019; unable to wean, awaiting trach and PEG, clinically no change 08/24/2019: Patient has tachycardia, added low-dose metoprolol, pending trach and PEG The high probability of a clinically significant, sudden or life threatening deterioration of the [respiratory, CVS, CARDIAC CATH LAB MANAGER] system(s) required my full and direct attention, intervention and personal management. The aggregate critical care time was [34] minutes. This time is in addition to time spent performing reported procedures but includes the following: [x] Data Review and interpretation [x] Patient assessment and monitoring of vital signs [x] Documentation [x] Medication orders and management History Interval history: I have seen the patient and examined at bedside today in ICU Isolation precautions and PPE protocols followed Patient's blood pressures is in the lower range Remains intubated on ventilatory support Awaiting trach and PEG 08/31/2019 Vital signs reviewed Hospitalist Physical - Constitutional Vitals: Temp Pulse Resp BP Pulse Ox 98.7 F 114 H 33 H 118/77 100 08/25/19 07:40 08/25/19 09:01 08/25/19 09:01 08/25/19 09:01 08/25/19 09:01 General appearance: Present: mild distress, obese (Chronically ill looking), other (On vent) - EENT Eyes: Present: PERRL, EOM intact - Neck Neck: Present: supple, normal ROM - Respiratory Respiratory effort: normal Respiratory: bilateral: diminished, rhonchi, negative: rales, wheezing - Cardiovascular Rhythm: regular Heart Sounds: Present: S1 & S2 - Extremities Extremities: no ischemia, No edema - Abdominal General gastrointestinal: soft, non-tender, non-distended, normal bowel sounds - Integumentary Integumentary: Present: clear, warm - Psychiatric Psychiatric: other (On vent) - Neurologic Neurologic: other (On vent) HEART Score - HEART Score Troponin: Troponin T 0.013 ng/mL (0.00-0.029) 07/04/19 07:05 Results - Labs CBC & Chem 7: 08/23/19 06:00 08/20/19 Unknown Labs: Laboratory Last Values WBC 12.3 K/mm3 (4.5-11.0) H 08/23/19 06:00 RBC 2.92 M/mm3 (3.65-5.03) L 08/23/19 06:00 Hgb 8.0 gm/dl (11.8-15.2) L 08/23/19 06:00 Hct 24.6 % (35.5-45.6) L 08/23/19 06:00 MCV 85 fl (84-94) 08/23/19 06:00 MCH 28 pg (28-32) 08/23/19 06:00 MCHC 33 % (32-34) 08/23/19 06:00 RDW 18.5 % (13.2-15.2) H 08/23/19 06:00 Plt Count 661 K/mm3 (140-440) H 08/23/19 06:00 Lymph % (Auto) 11.7 % (13.4-35.0) L 08/23/19 06:00 [place] % (Auto) 9.2 % (0.0-7.3) H 08/23/19 06:00 Eos % (Auto) 2.8 % (0.0-4.3) 08/23/19 06:00 Baso % (Auto) 0.7 % (0.0-1.8) 08/23/19 06:00 Lymph # 1.4 K/mm3 (1.2-5.4) 08/23/19 06:00 [place] # 1.1 K/mm3 (0.0-0.8) H 08/23/19 06:00 Eos # 0.3 K/mm3 (0.0-0.4) 08/23/19 06:00 Baso # 0.1 K/mm3 (0.0-0.1) 08/23/19 06:00 Add Manual Diff Complete 08/19/19 08:17 Total Counted 100 08/19/19 08:17 Seg Neutrophils % 75.6 % (40.0-70.0) H 08/23/19 06:00 Seg Neuts % (Manual) 89.0 % (40.0-70.0) H 08/19/19 08:17 Band Neutrophils % 0 % 08/19/19 08:17 Lymphocytes % (Manual) 4.0 % (13.4-35.0) L 08/19/19 08:17 Reactive Lymphs % (Man) 0 % 08/19/19 08:17 Monocytes % (Manual) 3.0 % (0.0-7.3) 08/19/19 08:17 Eosinophils % (Manual) 2.0 % (0.0-4.3) 08/19/19 08:17 Basophils % (Manual) 2.0 % (0.0-1.8) H 08/19/19 08:17 Metamyelocytes % 0 % 08/19/19 08:17 Myelocytes % 0 % 08/19/19 08:17 Promyelocytes % 0 % 08/19/19 08:17 Blast Cells % 0 % 08/19/19 08:17 Nucleated RBC % Not Reportable 08/19/19 08:17 Seg Neutrophils # 9.3 K/mm3 (1.8-7.7) H 08/23/19 06:00 Seg Neutrophils # Man 27.1 K/mm3 (1.8-7.7) H 08/19/19 08:17 Band Neutrophils # 0.0 K/mm3 08/19/19 08:17 Lymphocytes # (Manual) 1.2 K/mm3 (1.2-5.4) 08/19/19 08:17 Abs React Lymphs (Man) 0.0 K/mm3 08/19/19 08:17 Monocytes # (Manual) 0.9 K/mm3 (0.0-0.8) H 08/19/19 08:17 Eosinophils # (Manual) 0.6 K/mm3 (0.0-0.4) H 08/19/19 08:17 Basophils # (Manual) 0.6 K/mm3 (0.0-0.1) H 08/19/19 08:17 Metamyelocytes # 0.0 K/mm3 08/19/19 08:17 Myelocytes # 0.0 K/mm3 08/19/19 08:17 Promyelocytes # 0.0 K/mm3 08/19/19 08:17 Blast Cells # 0.0 K/mm3 08/19/19 08:17 WBC Morphology Not Reportable 08/19/19 08:17 Hypersegmented Neuts Not Reportable 08/19/19 08:17 Hyposegmented Neuts Not Reportable 08/19/19 08:17 Hypogranular Neuts Not Reportable 08/19/19 08:17 Smudge Cells Not Reportable 08/19/19 08:17 Toxic Granulation Not Reportable 08/19/19 08:17 Toxic Vacuolation Not Reportable 08/19/19 08:17 Dohle Bodies Not Reportable 08/19/19 08:17 Pelger-Huet Anomaly Not Reportable 08/19/19 08:17 [place]y Rods Not Reportable 08/19/19 08:17 Platelet Estimate Consistent w auto 08/19/19 08:17 Clumped Platelets Not Reportable 08/19/19 08:17 Plt Clumps, EDTA Not Reportable 08/19/19 08:17 Large Platelets Not Reportable 08/19/19 08:17 Giant Platelets Not Reportable 08/19/19 08:17 Platelet Satelliting Not Reportable 08/19/19 08:17 Plt Morphology Comment Not Reportable 08/19/19 08:17 RBC Morphology Not Reportable 08/19/19 08:17 Dimorphic RBCs Not Reportable 08/19/19 08:17 Polychromasia Not Reportable 08/19/19 08:17 Hypochromasia 1+ 08/19/19 08:17 Poikilocytosis Not Reportable 08/19/19 08:17 Anisocytosis Few 08/19/19 08:17 Microcytosis Not Reportable 08/19/19 08:17 Macrocytosis Not Reportable 08/19/19 08:17 Spherocytes Not Reportable 08/19/19 08:17 Pappenheimer Bodies Not Reportable 08/19/19 08:17 Sickle Cells Not Reportable 08/19/19 08:17 Target Cells Not Reportable 08/19/19 08:17 Tear Drop Cells Not Reportable 08/19/19 08:17 Ovalocytes Not Reportable 08/19/19 08:17 Stomatocytes Few 08/01/19 04:57 Helmet Cells Not Reportable 08/19/19 08:17 [place] Bodies Not Reportable 08/19/19 08:17 [place] Rings Not Reportable 08/19/19 08:17 [place] Cells Not Reportable 08/19/19 08:17 Bite Cells Not Reportable 08/19/19 08:17 Crenated Cell Not Reportable 08/19/19 08:17 Elliptocytes Not Reportable 08/19/19 08:17 Acanthocytes (Spur) Not Reportable 08/19/19 08:17 Rouleaux Not Reportable 08/19/19 08:17 Hemoglobin C Crystals Not Reportable 08/19/19 08:17 Schistocytes Not Reportable 08/19/19 08:17 Malaria parasites Not Reportable 08/19/19 08:17 Jeevan Bodies Not Reportable 08/19/19 08:17 Hem Pathologist Commnt No 08/19/19 08:17 PT 16.0 Sec. (12.2-14.9) H 07/03/19 22:20 INR 1.26 (0.87-1.13) H 07/03/19 22:20 D-Dimer 1808.06 ng/mlDDU (0-234) H 08/07/19 10:24 ABG pH 7.405 pH Units (7.350-7.450) 08/17/19 20:20 ABG pCO2 45.3 mm Hg 08/17/19 20:20 ABG pO2 84.2 mm Hg (80.0-90.0) 08/17/19 20:20 ABG HCO3 27.8 mmol/L (20.0-26.0) H 08/17/19 20:20 ABG O2 Saturation 96.9 % (95.0-99.0) 08/17/19 20:20 ABG O2 Content 15.2 (0.0-44) 08/17/19 20:20 ABG Base Excess 2.6 mmol/L (-2.0-3.0) 08/17/19 20:20 ABG Hemoglobin 11.4 gm/dl (14.0-18.0) L 08/17/19 20:20 ABG Carboxyhemoglobin 1.9 % (0.0-5.0) 08/17/19 20:20 ABG Methemoglobin 0.5 % (0.0-1.5) 08/17/19 20:20 Oxyhemoglobin 94.6 % (95.0-99.0) L 08/17/19 20:20 FiO2 28 % 08/17/19 20:20 Sodium 134 mmol/L (137-145) L 08/20/19 Unknown Potassium 4.1 mmol/L (3.6-5.0) 08/20/19 Unknown Chloride 97.9 mmol/L (98-107) L 08/20/19 Unknown Carbon Dioxide 27 mmol/L (22-30) 08/20/19 Unknown Anion Gap 13 mmol/L 08/20/19 Unknown BUN 12 mg/dL (9-20) 08/20/19 Unknown Creatinine 0.3 mg/dL (0.8-1.5) L 08/20/19 Unknown Estimated GFR > 60 ml/min 08/20/19 Unknown BUN/Creatinine Ratio 40 % 08/20/19 Unknown Glucose 115 mg/dL (75-100) H 08/20/19 Unknown POC Glucose 129 (70-105) H 08/25/19 05:37 Osmolality 268 Mosm/kg 07/05/19 04:00 Lactic Acid 1.70 mmol/L (0.7-2.0) 08/18/19 13:00 Uric Acid 7.2 mg/dL (3.5-7.6) 07/05/19 04:00 Calcium 8.2 mg/dL (8.4-10.2) L 08/20/19 Unknown Phosphorus 3.60 mg/dL (2.5-4.5) 07/05/19 04:00 Magnesium 1.50 mg/dL (1.7-2.3) L 08/15/19 06:10 Iron 9 ug/dL (49-181) L 07/04/19 07:05 TIBC 97 mcg/dL (250-450) L 07/04/19 07:05 Ferritin 360.4 ng/mL (13.0-400.0) 08/07/19 10:24 Total Bilirubin 0.20 mg/dL (0.1-1.2) 08/16/19 05:00 AST 20 units/L (5-40) 08/16/19 05:00 ALT 8 units/L (7-56) 08/16/19 05:00 Alkaline Phosphatase 77 units/L (35-129) 08/16/19 05:00 Ammonia 35.0 umol/L (25-60) 07/03/19 23:58 Lactate Dehydrogenase 144 units/L (91-180) 08/07/19 10:24 Troponin T 0.013 ng/mL (0.00-0.029) 07/04/19 07:05 C-Reactive Protein 2.70 mg/dL (0.00-1.30) H 08/16/19 05:00 Total Protein 7.0 g/dL (6.3-8.2) 08/16/19 05:00 Albumin 2.1 g/dL (3.9-5) L 08/16/19 05:00 Albumin/Globulin Ratio 0.4 % 08/16/19 05:00 Prealbumin 0.037 g/L (0.200-0.400) L 07/31/19 04:42 Triglycerides 33 mg/dL (2-149) 07/03/19 19:57 Cholesterol 47 mg/dL (50-199) L 07/03/19 19:57 LDL Cholesterol Direct 25 mg/dL (50-130) L 07/03/19 19:57 HDL Cholesterol 20 mg/dL (40-59) L 07/03/19 19:57 Cholesterol/HDL Ratio 2.35 % 07/03/19 19:57 Procalcitonin < 0.05 ng/mL (<0.15) 08/16/19 14:35 TSH 2.170 mlU/mL (0.270-4.200) 07/03/19 22:20 Total Cortisol 28.0 mcg/dL () 07/05/19 10:11 Urine Color Yellow (Yellow) 07/29/19 11:57 Urine Turbidity Clear (Clear) 07/29/19 11:57 Urine pH 7.0 (5.0-7.0) 07/29/19 11:57 Ur Specific [place] 1.012 (1.003-1.030) 07/29/19 11:57 Urine Protein <15 mg/dl mg/dL (Negative) 07/29/19 11:57 Urine Glucose (UA) Neg mg/dL (Negative) 07/29/19 11:57 Urine Ketones Neg mg/dL (Negative) 07/29/19 11:57 Urine Blood Sm (Negative) 07/29/19 11:57 Urine Nitrite Neg (Negative) 07/29/19 11:57 Urine Bilirubin Neg (Negative) 07/29/19 11:57 Urine Urobilinogen 4.0 mg/dL (<2.0) 07/29/19 11:57 Ur Leukocyte Esterase Mod (Negative) 07/29/19 11:57 Urine WBC (Auto) 63.0 /HPF (0.0-6.0) H 07/29/19 11:57 Urine RBC (Auto) 14.0 /HPF (0.0-6.0) 07/29/19 11:57 U Epithel Cells (Auto) < 1.0 /HPF (0-13.0) 07/29/19 11:57 Urine Bacteria (Auto) 1+ /HPF (Negative) 07/29/19 11:57 Urine WBC Clumps Few /HPF 07/03/19 21:13 Urine Mucus Few /HPF 07/03/19 21:13 Urine Osmolality 293 Mosm/kg 07/05/19 08:15 Vancomycin Trough 23.2 ug/mL (5.0-20.0) H 07/05/19 17:54 Urine Opiates Screen Presumptive negative 07/03/19 21:13 Urine Methadone Screen Presumptive negative 07/03/19 21:13 Ur Barbiturates Screen Presumptive negative 07/03/19 21:13 Ur Phencyclidine Scrn Presumptive negative 07/03/19 21:13 Ur Amphetamines Screen Presumptive negative 07/03/19 21:13 U Benzodiazepines Scrn Presumptive negative 07/03/19 21:13 Urine Cocaine Screen Presumptive negative 07/03/19 21:13 U Marijuana (THC) Screen Presumptive negative 07/03/19 21:13 Drugs of Abuse Note Disclamer 07/03/19 21:13 Plasma/Serum Alcohol < 0.01 % (0-0.07) 07/03/19 23:58 Coronavirus (PCR) Negative (Negative) 08/20/19 12:23 Hepatitis A IgM Ab Non-reactive (NonReactive) 08/07/19 10:24 Hep Bs Antigen Non-reactive (Negative) 08/07/19 10:24 Hep B Core IgM Ab Non-reactive (NonReactive) 08/07/19 10:24 Hepatitis C Antibody Non-reactive (NonReactive) 08/07/19 10:24 Blood Type B POSITIVE 08/09/19 17:59 Antibody Screen Negative 08/09/19 17:59 Crossmatch See Detail 08/09/19 17:59 Wright/IV: Voiding Method Indwelling Catheter IV Catheter Type [Left Triple Lumen Cath Internal Jugular] IV Catheter Type [Left INT / Saline Lock Antecubital] IV Catheter Type [Left Forearm Peripheral IV ] IV Catheter Type [Left Upper Mid-line arm] IV Catheter Type [Right INT / Saline Lock Forearm] IV Catheter Type [Right Hand] INT / Saline Lock IV Catheter Type [Right CVL Femoral] IV Catheter Type [Left INT / Saline Lock External Jugular] Active Medications - Current Medications Current Medications: Generic Name Dose Route Start Last Admin Trade Name Freq PRN Reason Stop Dose Admin Acetaminophen 650 mg 07/04/19 04:24 08/05/19 17:40 Tylenol OK 650 mg Q6H PRN Administration Pain MILD(1-3)/Fever >100.5/MURO Acetaminophen 650 mg 07/10/19 04:00 08/23/19 00:30 Tylenol PO 650 mg Q6HR PRN Administration Pain, Mild (1-3) FEVER Lipase/Protease/Amylase 1 each 07/04/19 10:04 08/11/19 06:03 Pancreaze 10,500 Unit FEEDTUBE 1 each PRN PRN Administration For Clogged Feeding Tube Aspirin 81 mg 07/05/19 10:00 08/24/19 09:53 Baby Aspirin PO 81 mg QDAY TAMMIE Administration Dextrose 50 ml 07/04/19 06:54 D50w (25gm) Syringe IV Q30MIN PRN Hypoglycemia Protocol Docusate Sodium 100 mg 08/14/19 14:00 Colace PO BID PRN CONSTIPATION Enoxaparin Sodium 40 mg 07/24/19 10:00 08/24/19 09:52 Enoxaparin SUB-Q 40 mg QDAY@1000 TAMMIE Administration Famotidine 20 mg 07/23/19 22:00 08/24/19 21:52 Pepcid PO 20 mg BID TAMMIE Administration Fentanyl 50 mcg 07/21/19 15:18 08/25/19 07:22 Sublimaze IV 50 mcg Q10MIN PRN Administration ANALGESIA Fentanyl 25 mcg 08/03/19 11:00 08/24/19 12:38 Duragesic TD Not Given Q3D [facility] Folic Acid 1 mg 07/05/19 10:00 08/24/19 09:53 Folvite PO 1 mg QDAY [facility] Administration Glycopyrrolate 1 mg 08/16/19 14:00 08/25/19 07:21 Robinul PO 1 mg TID [facility] Administration Hydrophilic Ointment 1 applic 07/03/19 19:56 07/05/19 17:42 Vaseline Lip Therapy TP 1 applic Q2HR PRN Administration Dry Lips Norepinephrine 4 mg in 250 mls @ 7.5 mls/hr 07/03/19 23:00 07/20/19 01:00 Levophed Drip 4 Mg/Ns 250 Ml IV Infused TITR [facility] Titration Protocol 2 MCG/MIN Levofloxacin/Dextrose 750 mg in 150 mls @ 100 mls/hr 08/19/19 12:00 08/24/19 09:52 Levaquin 750mg/150ml IV 100 mls/hr Q24HR [facility] Administration Protocol Insulin Human Lispro 0 unit 07/07/19 12:00 08/25/19 05:25 Humalog SUB-Q Not Given Q6HR [facility] Protocol Levetiracetam 750 mg 07/06/19 11:00 08/24/19 21:51 Keppra FEEDTUBE 750 mg Q12HR [facility] Administration Metoprolol Tartrate 5 mg 07/12/19 15:08 08/19/19 15:45 Metoprolol IV 5 mg Q6HR PRN Administration Tachyarrhythmias Metoprolol Tartrate 12.5 mg 08/24/19 10:00 08/24/19 21:52 Metoprolol PO 12.5 mg BID [facility] Administration Multi-Ingred Cream/Lotion/Oil/Oint 1 applic 07/03/19 19:56 07/05/19 13:19 Artificial Tears Ophth Oint OU 1 applic Q4HR PRN Administration Dry Eye(s) Naloxone HCl 0.1 mg 07/04/19 04:24 Naloxone IV Q2MIN PRN Res Rate </= 8 or 02 SAT < 92% Oxycodone/Acetaminophen 1 tab 07/19/19 14:17 08/24/19 15:17 Percocet 5/325 PO 1 tab Q4H PRN Administration Pain, Moderate (4-6) Scopolamine 1 each 07/10/19 11:00 08/24/19 12:38 Transderm-Scop TD Not Given Q3D TAMMIE Simple Syrup 15 ml 07/04/19 10:04 07/10/19 21:56 Simple Syrup FEEDTUBE 15 ml PRN PRN Administration Hypoglycemia Simple Syrup 30 ml 07/04/19 10:04 Simple Syrup FEEDTUBE PRN PRN Hypoglycemia Sodium Bicarbonate 325 mg 07/04/19 10:04 07/20/19 10:20 Sodium Bicarbonate FEEDTUBE 325 mg PRN PRN Administration For Clogged Feeding Tube Sodium Chloride 10 ml 07/04/19 10:00 08/24/19 21:53 Sodium Chloride Flush Syringe 10 Ml IV 10 ml BID TAMMIE Administration Sodium Chloride 10 ml 07/04/19 04:24 Sodium Chloride Flush Syringe 10 Ml IV PRN PRN LINE FLUSH Sodium Hypochlorite 1 applic 07/10/19 14:00 08/24/19 21:53 Dakin's Half Strength TP 1 appful BID TAMMIE Administration Nutrition/Malnutrition Assess - Dietary Evaluation Nutrition/Malnutrition Findings: Nutrition Notes Start: 07/04/19 09:17 Freq: Status: Active Protocol: Document 08/21/19 10:32 LP (Rec: 08/21/19 10:34 LP [id number]) Nutrition Notes Initial or Follow up Reassessment Current Diagnosis Acute Kidney Injury,COPD, Decubitus(Pressure Ulcer), Diabetes,Hypertension Other Pertinent Diagnosis COVID-19 (+), pneu, seizures, schizophrenia, Buttock and R foot PU, Current Diet Osmolite 1.5 at 55ml/hr Labs/Tests Reviewed Pertinent Medications Reviewed Height 5 ft 11 in Weight 75.3 kg [place] Body Weight (kg) 78.18 BMI 23.1 Weight Status Appropriate Subjective/Other Information Pt continues tolerating TF at goal rate.. Percent of energy/protein needs met: 97%/75% Burn Absent Trauma Absent Current % PO Negligible Minimum of two criteria No physical signs of malnutrition #2 Nutrition Diagnosis Increased nutrient needs ( specify in comment below) Diagnosis Progress(for reassessment Continues documentation) #1 Nutrition Diagnosis Inadequate oral intake Diagnosis Progress(for reassessment Continues documentation) Is patient on ventilator? Yes Is Patient Ambulatory and/or Out of Bed No REE-(Harrison-St. Jeor-confined to bed) [phone] Calculation Used for Recommendations Harrison-St Sammi Additional Notes Protein: 110-184 (1.2-2g/kg) Fluid: 1 ml/kcal or per MD Nutrition Intervention Change Diet Order: Continue TF Nutrition Support: Osmolite 1.5 at 55ml/hr Flush 150ml q4h Kcal 1,980 Protein (gm) 83 Fluid (mL) 1,006 Add Supplement/Snack (indicate name/kcal Scott BID /protein ) Provides kCal: 190 Provides Protein (gm) 5 Goal #1 TF tolerance Goal #2 TF to meet at least 75% of energy and protein needs Anticipated Discharge Needs: unable to determine at this time Follow-Up By: 08/28/19 Additional Comments Follow for stable TF
[2019-08-25] MEDS: METOPROLOL TARTRATE 25 MG TAB PO SCH ×2 (12:45→23:36)
--- NOTE | 2019-08-25 15:51 | XRay Report ---
ABDOMEN 1 VIEW 3:16 PM INDICATION / CLINICAL INFORMATION: NG tube placement. COMPARISON: 08/20/19. FINDINGS: TUBES / LINES: There is a nasogastric tube with the tip overlying the proximal gastric body and the s idehole below the gastroesophageal junction. BOWEL GAS PATTERN: Gas throughout the bowel without evidence of obstruction is similar to the prior e xam. FREE AIR / EXTRALUMINAL GAS: None seen. ADDITIONAL FINDINGS: No significant additional findings. IMPRESSION: Nasogastric tube tip overlies the proximal stomach. Signer Name: Alexander Sierra MD Signed: 08/25/2019 3:46 PM Workstation Name: [id number]
[2019-08-26] MEDS: INSULIN LISPRO 100 UNIT/ML SUB-Q SCH ×4 (01:04→18:00)
[2019-08-26] MEDS: GLYCOPYRROLATE 1 MG TAB PO SCH ×3 (08:00→22:55)
--- NOTE | 2019-08-26 08:56 | Progress Note ---
Assessment and Plan Assessment and plan: Awaiting trach and PEG, scheduled for 08/31/2019 08/20/2019; hernandez PCR negative 08/10/2019; hernandez PCR positive 07/29/2019; hernandez PCR positive 07/04/2019; hernandez PCR positive -- Acute hypoxic respiratory Failure vent dependent Unable to wean, planning trach and PEG Patient needs to have a negative COVID for the procedure Patient's COVID-19 test is negative[08/20/2019] --Bilateral PNA with COVID 19 infection. On ventilatory support, unable to wean Pulmonary critical following --COVid positive pneumonia with severe sepsis Possible abscess, no need for drianage per ID/pULM Received Plaquenil and cefepime, monitor off antibiotics --Recurrent fever: Afebrile now --COPD with exacerbation Likely due to COVID-19 pneumonia Continue scheduled nebs --Acute metabolic encephalopathy: Unchanged despite no sedation --Septic shock: Off pressors Monitor blood pressures, fluid bolus if needed --Anemia, Microcytic persistent s/p total 6 unit of PRBC, H&H low stable --Pressure Ulcers: concerning for osteomylitis POA/ Scrotal ulcers buttocks, right lateral foot area, wound and supportive care --Hyponatremia, resolved --DM type 2: Accu-Chek SCC tube feeding, insulin as needed --h/o HTN Essential, BP in the lower range --Seizure D/o/CVA/immobility/BIpolar D/o/SCZ Seizure precautions, antiepileptic medications --Severe PCM, TF supportive care, dietary following --DNR status Very poor prognosis, Recommend hospice Awaiting trach and PEG, and LTAC placement 08/16: Awaiting negative COVID test for placement of trach and PEG. In the meantime we will continue aggressive attempt to wean patient. Cultures have been reviewed and discussed with infectious disease who is managing treatment at this time. Continue wound care dressing. Multiple skin tears were noted on admission will continue to follow. Patient receiving repeat chest x-ray reviewed today shows stable bilateral pulmonary disease and no acuity noted on KUB due to persistent fever ID reviewing increases acidophil wondering if there is drug fever will follow closely. Prognosis remains guarded. 08/17: Continue current management, monitor WBC, mildly elevated. 08/18: Remains on full ventilatory support mental status still unchanged. Continue supportive care. Antibiotics adjustment per ID. Discussed with nursing staff will do some wound dressing changes today to see progression. My understanding was that the wounds did have significant bleed last time but tamponaded. Will monitor in the setting of anemia. 08/19: Remains on full ventilatory support mental status still unchanged. Repeat COVID19 Testing to allow for Trach and Peg and transfer to LTAC. Continue supportive care. Antibiotics adjustment per ID. poor prognosis. b/l chest xray unchanged. continue wound care 08/21/2019: COVID test negative,reconsult surgery for possible trach and PEG , remains intubated on vent 08/22/2019: Surgery reevaluated, scheduled trach and PEG for 08/31/2019 .patient is on vent support 08/23/2019; unable to wean, awaiting trach and PEG, clinically no change 08/24/2019: Patient has tachycardia, added low-dose metoprolol, pending trach and PEG 08/25/2019: Patient's has blood pressure in the lower range, probably due to the metoprolol that was started yesterday for tachycardia We will closely monitor and adjust dose of medication, consider fluid bolus, unable to wean, Pending trach and PEG 08/26/2019; awaiting trach and PEG 08/31/2019, clinically no change The high probability of a clinically significant, sudden or life threatening deterioration of the [respiratory, CVS, ACCOUNT LIAISON] system(s) required my full and direct attention, intervention and personal management. The aggregate critical care time was [33] minutes. This time is in addition to time spent performing reported procedures but includes the following: [x] Data Review and interpretation [x] Patient assessment and monitoring of vital signs [x] Documentation [x] Medication orders and management History Interval history: Patient seen and examined in ICU at bedside this morning Isolation precautions and PPE protocols followed Patient remains intubated on ventilatory support Awaiting tracheostomy on 08/31/2019 Vital signs reviewed Hospitalist Physical - Constitutional Vitals: Temp Pulse Resp BP Pulse Ox 98.5 F 103 H 22 108/69 100 08/26/19 04:00 08/26/19 06:00 08/26/19 06:00 08/26/19 06:00 08/26/19 06:00 General appearance: Present: mild distress, obese (Chronically ill looking), other (On vent) - EENT Eyes: Present: PERRL, EOM intact - Neck Neck: Present: supple, normal ROM - Respiratory Respiratory effort: normal Respiratory: bilateral: diminished, rhonchi, negative: rales, wheezing - Cardiovascular Rhythm: regular Heart Sounds: Present: S1 & S2 - Extremities Extremities: no ischemia, No edema - Abdominal General gastrointestinal: soft, non-tender, non-distended, normal bowel sounds - Integumentary Integumentary: Present: clear, warm - Psychiatric Psychiatric: other (Intubated on vent) - Neurologic Neurologic: other (Intubated on vent) HEART Score - HEART Score Troponin: Troponin T 0.013 ng/mL (0.00-0.029) 07/04/19 07:05 Results - Labs CBC & Chem 7: 08/23/19 06:00 08/20/19 Unknown Labs: Laboratory Last Values WBC 12.3 K/mm3 (4.5-11.0) H 08/23/19 06:00 RBC 2.92 M/mm3 (3.65-5.03) L 08/23/19 06:00 Hgb 8.0 gm/dl (11.8-15.2) L 08/23/19 06:00 Hct 24.6 % (35.5-45.6) L 08/23/19 06:00 MCV 85 fl (84-94) 08/23/19 06:00 MCH 28 pg (28-32) 08/23/19 06:00 MCHC 33 % (32-34) 08/23/19 06:00 RDW 18.5 % (13.2-15.2) H 08/23/19 06:00 Plt Count 661 K/mm3 (140-440) H 08/23/19 06:00 Lymph % (Auto) 11.7 % (13.4-35.0) L 08/23/19 06:00 Potter % (Auto) 9.2 % (0.0-7.3) H 08/23/19 06:00 Eos % (Auto) 2.8 % (0.0-4.3) 08/23/19 06:00 Baso % (Auto) 0.7 % (0.0-1.8) 08/23/19 06:00 Lymph # 1.4 K/mm3 (1.2-5.4) 08/23/19 06:00 Potter # 1.1 K/mm3 (0.0-0.8) H 08/23/19 06:00 Eos # 0.3 K/mm3 (0.0-0.4) 08/23/19 06:00 Baso # 0.1 K/mm3 (0.0-0.1) 08/23/19 06:00 Add Manual Diff Complete 08/19/19 08:17 Total Counted 100 08/19/19 08:17 Seg Neutrophils % 75.6 % (40.0-70.0) H 08/23/19 06:00 Seg Neuts % (Manual) 89.0 % (40.0-70.0) H 08/19/19 08:17 Band Neutrophils % 0 % 08/19/19 08:17 Lymphocytes % (Manual) 4.0 % (13.4-35.0) L 08/19/19 08:17 Reactive Lymphs % (Man) 0 % 08/19/19 08:17 Monocytes % (Manual) 3.0 % (0.0-7.3) 08/19/19 08:17 Eosinophils % (Manual) 2.0 % (0.0-4.3) 08/19/19 08:17 Basophils % (Manual) 2.0 % (0.0-1.8) H 08/19/19 08:17 Metamyelocytes % 0 % 08/19/19 08:17 Myelocytes % 0 % 08/19/19 08:17 Promyelocytes % 0 % 08/19/19 08:17 Blast Cells % 0 % 08/19/19 08:17 Nucleated RBC % Not Reportable 08/19/19 08:17 Seg Neutrophils # 9.3 K/mm3 (1.8-7.7) H 08/23/19 06:00 Seg Neutrophils # Man 27.1 K/mm3 (1.8-7.7) H 08/19/19 08:17 Band Neutrophils # 0.0 K/mm3 08/19/19 08:17 Lymphocytes # (Manual) 1.2 K/mm3 (1.2-5.4) 08/19/19 08:17 Abs React Lymphs (Man) 0.0 K/mm3 08/19/19 08:17 Monocytes # (Manual) 0.9 K/mm3 (0.0-0.8) H 08/19/19 08:17 Eosinophils # (Manual) 0.6 K/mm3 (0.0-0.4) H 08/19/19 08:17 Basophils # (Manual) 0.6 K/mm3 (0.0-0.1) H 08/19/19 08:17 Metamyelocytes # 0.0 K/mm3 08/19/19 08:17 Myelocytes # 0.0 K/mm3 08/19/19 08:17 Promyelocytes # 0.0 K/mm3 08/19/19 08:17 Blast Cells # 0.0 K/mm3 08/19/19 08:17 WBC Morphology Not Reportable 08/19/19 08:17 Hypersegmented Neuts Not Reportable 08/19/19 08:17 Hyposegmented Neuts Not Reportable 08/19/19 08:17 Hypogranular Neuts Not Reportable 08/19/19 08:17 Smudge Cells Not Reportable 08/19/19 08:17 Toxic Granulation Not Reportable 08/19/19 08:17 Toxic Vacuolation Not Reportable 08/19/19 08:17 Dohle Bodies Not Reportable 08/19/19 08:17 Pelger-Huet Anomaly Not Reportable 08/19/19 08:17 Mendy Rods Not Reportable 08/19/19 08:17 Platelet Estimate Consistent w auto 08/19/19 08:17 Clumped Platelets Not Reportable 08/19/19 08:17 Plt Clumps, EDTA Not Reportable 08/19/19 08:17 Large Platelets Not Reportable 08/19/19 08:17 Giant Platelets Not Reportable 08/19/19 08:17 Platelet Satelliting Not Reportable 08/19/19 08:17 Plt Morphology Comment Not Reportable 08/19/19 08:17 RBC Morphology Not Reportable 08/19/19 08:17 Dimorphic RBCs Not Reportable 08/19/19 08:17 Polychromasia Not Reportable 08/19/19 08:17 Hypochromasia 1+ 08/19/19 08:17 Poikilocytosis Not Reportable 08/19/19 08:17 Anisocytosis Few 08/19/19 08:17 Microcytosis Not Reportable 08/19/19 08:17 Macrocytosis Not Reportable 08/19/19 08:17 Spherocytes Not Reportable 08/19/19 08:17 Pappenheimer Bodies Not Reportable 08/19/19 08:17 Sickle Cells Not Reportable 08/19/19 08:17 Target Cells Not Reportable 08/19/19 08:17 Tear Drop Cells Not Reportable 08/19/19 08:17 Ovalocytes Not Reportable 08/19/19 08:17 Stomatocytes Few 08/01/19 04:57 Helmet Cells Not Reportable 08/19/19 08:17 [place] Bodies Not Reportable 08/19/19 08:17 [place] Rings Not Reportable 08/19/19 08:17 Joanne Cells Not Reportable 08/19/19 08:17 Bite Cells Not Reportable 08/19/19 08:17 Crenated Cell Not Reportable 08/19/19 08:17 Elliptocytes Not Reportable 08/19/19 08:17 Acanthocytes (Spur) Not Reportable 08/19/19 08:17 Rouleaux Not Reportable 08/19/19 08:17 Hemoglobin C Crystals Not Reportable 08/19/19 08:17 Schistocytes Not Reportable 08/19/19 08:17 Malaria parasites Not Reportable 08/19/19 08:17 Jeevan Bodies Not Reportable 08/19/19 08:17 Hem Pathologist Commnt No 08/19/19 08:17 PT 16.0 Sec. (12.2-14.9) H 07/03/19 22:20 INR 1.26 (0.87-1.13) H 07/03/19 22:20 D-Dimer 1808.06 ng/mlDDU (0-234) H 08/07/19 10:24 ABG pH 7.405 pH Units (7.350-7.450) 08/17/19 20:20 ABG pCO2 45.3 mm Hg 08/17/19 20:20 ABG pO2 84.2 mm Hg (80.0-90.0) 08/17/19 20:20 ABG HCO3 27.8 mmol/L (20.0-26.0) H 08/17/19 20:20 ABG O2 Saturation 96.9 % (95.0-99.0) 08/17/19 20:20 ABG O2 Content 15.2 (0.0-44) 08/17/19 20:20 ABG Base Excess 2.6 mmol/L (-2.0-3.0) 08/17/19 20:20 ABG Hemoglobin 11.4 gm/dl (14.0-18.0) L 08/17/19 20:20 ABG Carboxyhemoglobin 1.9 % (0.0-5.0) 08/17/19 20:20 ABG Methemoglobin 0.5 % (0.0-1.5) 08/17/19 20:20 Oxyhemoglobin 94.6 % (95.0-99.0) L 08/17/19 20:20 FiO2 28 % 08/17/19 20:20 Sodium 134 mmol/L (137-145) L 08/20/19 Unknown Potassium 4.1 mmol/L (3.6-5.0) 08/20/19 Unknown Chloride 97.9 mmol/L (98-107) L 08/20/19 Unknown Carbon Dioxide 27 mmol/L (22-30) 08/20/19 Unknown Anion Gap 13 mmol/L 08/20/19 Unknown BUN 12 mg/dL (9-20) 08/20/19 Unknown Creatinine 0.3 mg/dL (0.8-1.5) L 08/20/19 Unknown Estimated GFR > 60 ml/min 08/20/19 Unknown BUN/Creatinine Ratio 40 % 08/20/19 Unknown Glucose 115 mg/dL (75-100) H 08/20/19 Unknown POC Glucose 117 (70-105) H 08/26/19 05:35 Osmolality 268 Mosm/kg 07/05/19 04:00 Lactic Acid 1.70 mmol/L (0.7-2.0) 08/18/19 13:00 Uric Acid 7.2 mg/dL (3.5-7.6) 07/05/19 04:00 Calcium 8.2 mg/dL (8.4-10.2) L 08/20/19 Unknown Phosphorus 3.60 mg/dL (2.5-4.5) 07/05/19 04:00 Magnesium 1.50 mg/dL (1.7-2.3) L 08/15/19 06:10 Iron 9 ug/dL (49-181) L 07/04/19 07:05 TIBC 97 mcg/dL (250-450) L 07/04/19 07:05 Ferritin 360.4 ng/mL (13.0-400.0) 08/07/19 10:24 Total Bilirubin 0.20 mg/dL (0.1-1.2) 08/16/19 05:00 AST 20 units/L (5-40) 08/16/19 05:00 ALT 8 units/L (7-56) 08/16/19 05:00 Alkaline Phosphatase 77 units/L (35-129) 08/16/19 05:00 Ammonia 35.0 umol/L (25-60) 07/03/19 23:58 Lactate Dehydrogenase 144 units/L (91-180) 08/07/19 10:24 Troponin T 0.013 ng/mL (0.00-0.029) 07/04/19 07:05 C-Reactive Protein 2.70 mg/dL (0.00-1.30) H 08/16/19 05:00 Total Protein 7.0 g/dL (6.3-8.2) 08/16/19 05:00 Albumin 2.1 g/dL (3.9-5) L 08/16/19 05:00 Albumin/Globulin Ratio 0.4 % 08/16/19 05:00 Prealbumin 0.037 g/L (0.200-0.400) L 07/31/19 04:42 Triglycerides 33 mg/dL (2-149) 07/03/19 19:57 Cholesterol 47 mg/dL (50-199) L 07/03/19 19:57 LDL Cholesterol Direct 25 mg/dL (50-130) L 07/03/19 19:57 HDL Cholesterol 20 mg/dL (40-59) L 07/03/19 19:57 Cholesterol/HDL Ratio 2.35 % 07/03/19 19:57 Procalcitonin < 0.05 ng/mL (<0.15) 08/16/19 14:35 TSH 2.170 mlU/mL (0.270-4.200) 07/03/19 22:20 Total Cortisol 28.0 mcg/dL () 07/05/19 10:11 Urine Color Yellow (Yellow) 07/29/19 11:57 Urine Turbidity Clear (Clear) 07/29/19 11:57 Urine pH 7.0 (5.0-7.0) 07/29/19 11:57 Ur Specific Ambler 1.012 (1.003-1.030) 07/29/19 11:57 Urine Protein <15 mg/dl mg/dL (Negative) 07/29/19 11:57 Urine Glucose (UA) Neg mg/dL (Negative) 07/29/19 11:57 Urine Ketones Neg mg/dL (Negative) 07/29/19 11:57 Urine Blood Sm (Negative) 07/29/19 11:57 Urine Nitrite Neg (Negative) 07/29/19 11:57 Urine Bilirubin Neg (Negative) 07/29/19 11:57 Urine Urobilinogen 4.0 mg/dL (<2.0) 07/29/19 11:57 Ur Leukocyte Esterase Mod (Negative) 07/29/19 11:57 Urine WBC (Auto) 63.0 /HPF (0.0-6.0) H 07/29/19 11:57 Urine RBC (Auto) 14.0 /HPF (0.0-6.0) 07/29/19 11:57 U Epithel Cells (Auto) < 1.0 /HPF (0-13.0) 07/29/19 11:57 Urine Bacteria (Auto) 1+ /HPF (Negative) 07/29/19 11:57 Urine WBC Clumps Few /HPF 07/03/19 21:13 Urine Mucus Few /HPF 07/03/19 21:13 Urine Osmolality 293 Mosm/kg 07/05/19 08:15 Vancomycin Trough 23.2 ug/mL (5.0-20.0) H 07/05/19 17:54 Urine Opiates Screen Presumptive negative 07/03/19 21:13 Urine Methadone Screen Presumptive negative 07/03/19 21:13 Ur Barbiturates Screen Presumptive negative 07/03/19 21:13 Ur Phencyclidine Scrn Presumptive negative 07/03/19 21:13 Ur Amphetamines Screen Presumptive negative 07/03/19 21:13 U Benzodiazepines Scrn Presumptive negative 07/03/19 21:13 Urine Cocaine Screen Presumptive negative 07/03/19 21:13 U Marijuana (THC) Screen Presumptive negative 07/03/19 21:13 Drugs of Abuse Note Disclamer 07/03/19 21:13 Plasma/Serum Alcohol < 0.01 % (0-0.07) 07/03/19 23:58 Coronavirus (PCR) Negative (Negative) 08/20/19 12:23 Hepatitis A IgM Ab Non-reactive (NonReactive) 08/07/19 10:24 Hep Bs Antigen Non-reactive (Negative) 08/07/19 10:24 Hep B Core IgM Ab Non-reactive (NonReactive) 08/07/19 10:24 Hepatitis C Antibody Non-reactive (NonReactive) 08/07/19 10:24 Blood Type B POSITIVE 08/09/19 17:59 Antibody Screen Negative 08/09/19 17:59 Crossmatch See Detail 08/09/19 17:59 Wright/IV: Voiding Method Indwelling Catheter IV Catheter Type [Left Triple Lumen Cath Internal Jugular] IV Catheter Type [Left INT / Saline Lock Antecubital] IV Catheter Type [Left Forearm Peripheral IV ] IV Catheter Type [Left Upper Mid-line arm] IV Catheter Type [Right INT / Saline Lock Forearm] IV Catheter Type [Right Hand] INT / Saline Lock IV Catheter Type [Right CVL Femoral] IV Catheter Type [Left INT / Saline Lock External Jugular] Active Medications - Current Medications Current Medications: Generic Name Dose Route Start Last Admin Trade Name Freq PRN Reason Stop Dose Admin Acetaminophen 650 mg 07/04/19 04:24 08/05/19 17:40 Tylenol AK 650 mg Q6H PRN Administration Pain MILD(1-3)/Fever >100.5/MURO Acetaminophen 650 mg 07/10/19 04:00 08/23/19 00:30 Tylenol PO 650 mg Q6HR PRN Administration Pain, Mild (1-3) FEVER Lipase/Protease/Amylase 1 each 07/04/19 10:04 08/11/19 06:03 Pancrewhitley Gilbert 10,500 Unit FEEDTUBE 1 each PRN PRN Administration For Clogged Feeding Tube Aspirin 81 mg 07/05/19 10:00 08/25/19 09:40 Baby Aspirin PO 81 mg QDAY TAMMIE Administration Dextrose 50 ml 07/04/19 06:54 D50w (25gm) Syringe IV Q30MIN PRN Hypoglycemia Protocol Docusate Sodium 100 mg 08/14/19 14:00 Colace PO BID PRN CONSTIPATION Enoxaparin Sodium 40 mg 07/24/19 10:00 08/25/19 09:41 Enoxaparin SUB-Q 40 mg QDAY@1000 TAMMIE Administration Famotidine 20 mg 07/23/19 22:00 08/25/19 23:35 Pepcid PO 20 mg BID [facility] Administration Fentanyl 50 mcg 07/21/19 15:18 08/25/19 17:48 Sublimaze IV 50 mcg Q10MIN PRN Administration ANALGESIA Fentanyl 25 mcg 08/03/19 11:00 08/24/19 12:38 Duragesic TD Not Given Q3D [facility] Folic Acid 1 mg 07/05/19 10:00 08/25/19 09:40 Folvite PO 1 mg QDAY [facility] Administration Glycopyrrolate 1 mg 08/16/19 14:00 08/25/19 23:50 Robinul PO 1 mg TID [facility] Administration Hydrophilic Ointment 1 applic 07/03/19 19:56 07/05/19 17:42 Vaseline Lip Therapy TP 1 applic Q2HR PRN Administration Dry Lips Norepinephrine 4 mg in 250 mls @ 7.5 mls/hr 07/03/19 23:00 07/20/19 01:00 Levophed Drip 4 Mg/Ns 250 Ml IV Infused TITR [facility] Titration Protocol 2 MCG/MIN Levofloxacin/Dextrose 750 mg in 150 mls @ 100 mls/hr 08/19/19 12:00 08/25/19 09:41 Levaquin 750mg/150ml IV 08/28/19 11:59 100 mls/hr Q24HR [facility] Administration Protocol Insulin Human Lispro 0 unit 07/07/19 12:00 08/26/19 06:29 Humalog SUB-Q Not Given Q6HR [facility] Protocol Levetiracetam 750 mg 07/06/19 11:00 08/25/19 23:35 Keppra FEEDTUBE 750 mg Q12HR [facility] Administration Metoprolol Tartrate 5 mg 07/12/19 15:08 08/19/19 15:45 Metoprolol IV 5 mg Q6HR PRN Administration Tachyarrhythmias Metoprolol Tartrate 12.5 mg 08/24/19 10:00 08/25/19 23:36 Metoprolol PO 12.5 mg BID [facility] Administration Multi-Ingred Cream/Lotion/Oil/Oint 1 applic 07/03/19 19:56 07/05/19 13:19 Artificial Tears Ophth Oint OU 1 applic Q4HR PRN Administration Dry Eye(s) Naloxone HCl 0.1 mg 07/04/19 04:24 Naloxone IV Q2MIN PRN Res Rate </= 8 or 02 SAT < 92% Oxycodone/Acetaminophen 1 tab 07/19/19 14:17 08/24/19 15:17 Percocet 5/325 PO 1 tab Q4H PRN Administration Pain, Moderate (4-6) Scopolamine 1 each 07/10/19 11:00 08/24/19 12:38 Transderm-Scop TD Not Given Q3D TAMMIE Simple Syrup 15 ml 07/04/19 10:04 07/10/19 21:56 Simple Syrup FEEDTUBE 15 ml PRN PRN Administration Hypoglycemia Simple Syrup 30 ml 07/04/19 10:04 Simple Syrup FEEDTUBE PRN PRN Hypoglycemia Sodium Bicarbonate 325 mg 07/04/19 10:04 07/20/19 10:20 Sodium Bicarbonate FEEDTUBE 325 mg PRN PRN Administration For Clogged Feeding Tube Sodium Chloride 10 ml 07/04/19 10:00 08/25/19 23:51 Sodium Chloride Flush Syringe 10 Ml IV 10 ml BID TAMMIE Administration Sodium Chloride 10 ml 07/04/19 04:24 Sodium Chloride Flush Syringe 10 Ml IV PRN PRN LINE FLUSH Sodium Hypochlorite 1 applic 07/10/19 14:00 08/25/19 23:37 Dakin's Half Strength TP 10 appful BID TAMMIE Administration Nutrition/Malnutrition Assess - Dietary Evaluation Nutrition/Malnutrition Findings: Nutrition Notes Start: 07/04/19 09:17 Freq: Status: Active Protocol: Document 08/21/19 10:32 LP (Rec: 08/21/19 10:34 LP [id number]) Nutrition Notes Initial or Follow up Reassessment Current Diagnosis Acute Kidney Injury,COPD, Decubitus(Pressure Ulcer), Diabetes,Hypertension Other Pertinent Diagnosis COVID-19 (+), pneu, seizures, schizophrenia, Buttock and R foot PU, Current Diet Osmolite 1.5 at 55ml/hr Labs/Tests Reviewed Pertinent Medications Reviewed Height 5 ft 11 in Weight 75.3 kg [place] Body Weight (kg) 78.18 BMI 23.1 Weight Status Appropriate Subjective/Other Information Pt continues tolerating TF at goal rate.. Percent of energy/protein needs met: 97%/75% Burn Absent Trauma Absent Current % PO Negligible Minimum of two criteria No physical signs of malnutrition #2 Nutrition Diagnosis Increased nutrient needs ( specify in comment below) Diagnosis Progress(for reassessment Continues documentation) #1 Nutrition Diagnosis Inadequate oral intake Diagnosis Progress(for reassessment Continues documentation) Is patient on ventilator? Yes Is Patient Ambulatory and/or Out of Bed No REE-([facility]-confined to bed) [phone] Calculation Used for Recommendations [facility] Additional Notes Protein: 110-184 (1.2-2g/kg) Fluid: 1 ml/kcal or per MD Nutrition Intervention Change Diet Order: Continue TF Nutrition Support: Osmolite 1.5 at 55ml/hr Flush 150ml q4h Kcal 1,980 Protein (gm) 83 Fluid (mL) 1,006 Add Supplement/Snack (indicate name/kcal Scott BID /protein ) Provides kCal: 190 Provides Protein (gm) 5 Goal #1 TF tolerance Goal #2 TF to meet at least 75% of energy and protein needs Anticipated Discharge Needs: unable to determine at this time Follow-Up By: 08/28/19 Additional Comments Follow for stable TF
[2019-08-26] MEDS: ASPIRIN 81 MG TAB CHEW PO SCH (09:53)
[2019-08-26] MEDS: FOLIC ACID 1 MG TAB PO SCH (09:53)
[2019-08-26] MEDS: FAMOTIDINE 20 MG TAB PO SCH ×2 (09:53→22:55)
[2019-08-26] MEDS: levETIRAcetam 500 MG/5 ML ORAL LIQD FEEDTUBE SCH ×2 (09:53→22:52)
[2019-08-26] MEDS: ENOXAPARIN 40 MG/0.4 ML INJ SUB-Q SCH (09:54)
[2019-08-26] MEDS: SODIUM HYPOCHLORITE, DAKIN'S 1/2 STRENGTH (0.25%) 473 ML TOPICAL SOLN TP SCH (09:54)
[2019-08-26] MEDS: METOPROLOL TARTRATE 25 MG TAB PO SCH ×2 (09:55→22:55)
--- NOTE | 2019-08-26 14:18 | Progress Note ---
Assessment and Plan S/p Cardiopulmonary arrest with ROSC Severe Sepsis with septic shock. Acute hypoxemic respiratory failure on MVS COVID-19 positive with elevated markers Bilateral pneumonia Elevated LFTs. Oropharyngeal dysphagia s/p PEG Acute kidney injury Decubitus ulcers-unstageable Moderate protein calorie malnutriton [id number] metabolic acidosis Leukocytosis Thrombocytosis-worse Microcytic anemia Continue with PSV as tolerated, full support at night Will continue to assess on a daily basis suitability for liberation from MVS while awaiting COVID negative testing. Repeat COVID testing negative - re-consulted surgery for trach and PEG placement- scheduled fro 08/30 CBC, BMP, CXR and ABG in am Continue with NGT feeding with aspiration precautions Supportive transfusions to keep HgB >7g/dL Continue all care as documented -Continue to coordinate sedation interruption( RN) and SBT( RT) today to optimize chances of success with weaning trial -ABG, CXR prn - continue airborne, droplet and contact isolation for COVID-19 - continue wound care per WCT - sedation prn for target RASS 0 to -1 - continue to wean supplemental oxygen for target O2 sat's > 90% - Daily SAT's and SBT assessment as tolerated - VAP bundle addressed - continue lung protective strategies - continue bronchodilators with pulmonary hygiene per RT - wean per pulmonary driven protocols otherwise - accuchecks with glycemic control per SSI (While critically ill target blood glucose of 140-180 mg/dL; avoid hypoglycemia) - continue to avoid benzodiazepines, reduce the possibility of delirium - prn analgesia per CPOT score - Maintenance of sleep-wake cycle, avoid delirium - continue enteral nutritional support at goal rate as tolerated - VTE prophylaxis-Enoxaparin -Stress ulcer prophylaxis- Famotidine - PT/OT/ROM exercises - continue mobility protocol, off loading and skin assessment for pressure ulcer prevention - Monitor hemodynamics closely -Wright catheter in this critically ill patient with unstageable sacral decubitus ulcer - continue other care per attending / other consultants - discharge planning ongoing concurrently .... Re-evaluate in am & prn CONDITION: CRITICAL PROGNOSIS: GUARDED CODE STATUS: DNAR Called his family to discuss goals of care, wants us to continue to treat aggressively at this time. The high probability of a clinically significant, sudden or life-threatening deterioration of the [respiratory ,cardiovascular, neurology] system(s) required my full and direct attention, intervention and personal management. The aggregate critical care time was [31] minutes without overlap. Time includes spent on; [x] Data Review and interpretation [x] Patient assessment and monitoring of vital signs [x] Documentation [x] Medication orders and management Subjective Date of service: 08/26/19 Principal diagnosis: Bilateral pneumonia, severe sepsis with septic shock, encephalopathy Interval history: The patient is a 69-year-old male with CVA, hypertension, dementia, schizophrenia, alcohol use disorder was admitted to the emergency room after being brought in by EMS with progressive shortness of breath and unresponsiveness. He was noted to have agonal breathing and a faint pulse requiring CPR. Patient was intubated and brought to the hospital. It seems, patient was on home hospice. Currently, remains critically ill, intubated, on mechanical ventilation. His COVID test resulted positive. LATE ENTRY FOR 08/22/2019 Patient is seen today for: s/p cardiopulmonary arrest with ROSC; Ac hypoxemic Resp failure on MVS; Severe sepsis with Shock; Bilateral Pneumonia; POSITIVE coronavirus-19 infection. Seen and examined at bedside; 24hour events reviewed; nursing and respiratory care staff consulted; no adverse overnight events reported to me; resting in bed.No fevers; On MVS , tolerating daily PSV trials at this time; on fentanyl at 1mcg, off vasopressors Tolerating tube feedings, Mental status changes persist, will spontaneously open eyes COVID negative Objective Vital Signs - 12hr 08/26/19 08/26/19 08/26/19 03:01 04:00 04:59 Temperature 98.5 F Pulse Rate 101 H 103 H 102 H Pulse Rate [ From Monitor] Pulse Rate [ 104 H Right Dorsalis Pedis] Respiratory 20 16 Rate Blood Pressure 110/70 117/77 O2 Sat by Pulse 100 100 100 Oximetry 08/26/19 08/26/19 08/26/19 05:00 06:00 07:00 Temperature Pulse Rate 103 H 103 H 97 H Pulse Rate [ From Monitor] Pulse Rate [ Right Dorsalis Pedis] Respiratory 16 22 19 Rate Blood Pressure 117/77 108/69 120/73 O2 Sat by Pulse 100 100 100 Oximetry 08/26/19 08/26/19 08/26/19 08:00 09:00 09:10 Temperature 99.4 F Pulse Rate 109 H 104 H 112 H Pulse Rate [ 102 H From Monitor] Pulse Rate [ Right Dorsalis Pedis] Respiratory 22 16 30 H Rate Blood Pressure 113/74 113/74 121/73 O2 Sat by Pulse 100 100 100 Oximetry 08/26/19 08/26/19 08/26/19 09:55 10:00 11:00 Temperature Pulse Rate 105 H 104 H 94 H Pulse Rate [ From Monitor] Pulse Rate [ Right Dorsalis Pedis] Respiratory 26 H 20 Rate Blood Pressure 113/74 125/77 125/68 O2 Sat by Pulse 100 100 Oximetry 08/26/19 08/26/19 08/26/19 11:27 12:00 13:00 Temperature 98.3 F Pulse Rate 93 H 106 H 92 H Pulse Rate [ 106 H From Monitor] Pulse Rate [ Right Dorsalis Pedis] Respiratory 20 29 H 20 Rate Blood Pressure 125/68 135/79 122/66 O2 Sat by Pulse 100 99 100 Oximetry Constitutional: appears uncomfortable, other (eelderly and chronically ill looking AAM, normocep[krystina;ic with mildly increased respiratory effort at rest) Eyes: non-icteric ENT: oropharynx moist, other (ETT 24 cm RUTH) Neck: supple, no lymphadenopathy, no JVD Effort: mildly labored Ascultation: Bilateral: diminished breath sounds, rhonchi Percussion: Bilateral: not dull Cardiovascular: regular rate and rhythm Gastrointestinal: normoactive bowel sounds, soft, non-tender, non-distended, other (+ PEG tube with mild TF leakage) Integumentary: decubitus ulcer (sacral) Extremities: no cyanosis, no edema, pink and warm, pulses normal Neurologic: pupils equal and round, unable to assess Psychiatric: other (Unable to assess re: AMS) CBC and BMP: 08/23/19 06:00 08/20/19 Unknown ABG, PT/INR, D-dimer: ABG ABG pH 7.405 pH Units (7.350-7.450) 08/17/19 20:20 ABG pCO2 45.3 mm Hg 08/17/19 20:20 ABG pO2 84.2 mm Hg (80.0-90.0) 08/17/19 20:20 ABG O2 Saturation 96.9 % (95.0-99.0) 08/17/19 20:20 PT/INR, D-dimer PT 16.0 Sec. (12.2-14.9) H 07/03/19 22:20 INR 1.26 (0.87-1.13) H 07/03/19 22:20 D-Dimer 1808.06 ng/mlDDU (0-234) H 08/07/19 10:24 Abnormal lab findings: Abnormal Labs 07/03/19 07/03/19 07/03/19 19:57 21:10 21:13 WBC RBC Hgb Hct MCV MCH MCHC RDW Plt Count Lymph % (Auto) Miner % (Auto) Lymph # Miner # Baso # Seg Neutrophils % Seg Neuts % (Manual) Lymphocytes % (Manual) Monocytes % (Manual) Basophils % (Manual) Nucleated RBC % Seg Neutrophils # Seg Neutrophils # Man Lymphocytes # (Manual) Monocytes # (Manual) Eosinophils # (Manual) Basophils # (Manual) PT INR D-Dimer ABG pH 7.238 L ABG pO2 210.8 H ABG HCO3 15.4 L ABG O2 Saturation 99.2 H ABG Base Excess -11.1 L ABG Hemoglobin 8.0 L Oxyhemoglobin Sodium 124 L Potassium Chloride 92.9 L Carbon Dioxide 10 L BUN 23 H Creatinine 0.5 L Glucose 118 H POC Glucose Lactic Acid Calcium 7.0 L Magnesium Iron TIBC Ferritin AST 70 H ALT 88 H Lactate Dehydrogenase Troponin T 0.032 H C-Reactive Protein Total Protein 5.0 L Albumin 1.8 L Prealbumin Cholesterol 47 L LDL Cholesterol Direct 25 L HDL Cholesterol 20 L Urine WBC (Auto) 12.0 H Vancomycin Trough Coronavirus (PCR) Crossmatch 07/03/19 07/03/19 07/03/19 22:20 22:20 22:20 WBC 30.5 H RBC 2.96 L Hgb 7.7 L Hct 23.9 L MCV 81 L MCH 26 L MCHC RDW 18.6 H Plt Count 459 H Lymph % (Auto) Miner % (Auto) Lymph # Miner # Baso # Seg Neutrophils % Seg Neuts % (Manual) 93.0 H Lymphocytes % (Manual) 0.5 L Monocytes % (Manual) Basophils % (Manual) Nucleated RBC % Seg Neutrophils # Seg Neutrophils # Man 28.4 H Lymphocytes # (Manual) 0.2 L Monocytes # (Manual) Eosinophils # (Manual) Basophils # (Manual) PT 16.0 H INR 1.26 H D-Dimer ABG pH ABG pO2 ABG HCO3 ABG O2 Saturation ABG Base Excess ABG Hemoglobin Oxyhemoglobin Sodium Potassium Chloride Carbon Dioxide BUN Creatinine Glucose POC Glucose Lactic Acid 6.90 H* Calcium Magnesium Iron TIBC Ferritin AST ALT Lactate Dehydrogenase Troponin T C-Reactive Protein Total Protein Albumin Prealbumin Cholesterol LDL Cholesterol Direct HDL Cholesterol Urine WBC (Auto) Vancomycin Trough Coronavirus (PCR) Crossmatch 07/03/19 07/04/19 07/04/19 23:58 05:15 07:05 WBC 17.1 H RBC 3.22 L Hgb 8.3 L Hct 25.4 L MCV 79 L MCH 26 L MCHC RDW 18.6 H Plt Count Lymph % (Auto) Miner % (Auto) Lymph # Miner # Baso # Seg Neutrophils % Seg Neuts % (Manual) 74.0 H Lymphocytes % (Manual) 0 L Monocytes % (Manual) Basophils % (Manual) Nucleated RBC % Seg Neutrophils # Seg Neutrophils # Man 12.7 H Lymphocytes # (Manual) 0.0 L Monocytes # (Manual) Eosinophils # (Manual) Basophils # (Manual) PT INR D-Dimer ABG pH 7.310 L ABG pO2 73.2 L ABG HCO3 17.8 L ABG O2 Saturation 93.8 L ABG Base Excess -7.7 L ABG Hemoglobin 9.6 L Oxyhemoglobin 92.3 L Sodium Potassium Chloride Carbon Dioxide BUN Creatinine Glucose POC Glucose Lactic Acid 7.10 H* Calcium Magnesium Iron TIBC Ferritin AST ALT Lactate Dehydrogenase Troponin T C-Reactive Protein Total Protein Albumin Prealbumin Cholesterol LDL Cholesterol Direct HDL Cholesterol Urine WBC (Auto) Vancomycin Trough Coronavirus (PCR) Crossmatch 07/04/19 07/04/19 07/04/19 07:05 07:05 07:05 WBC RBC Hgb Hct MCV MCH MCHC RDW Plt Count Lymph % (Auto) Miner % (Auto) Lymph # Miner # Baso # Seg Neutrophils % Seg Neuts % (Manual) Lymphocytes % (Manual) Monocytes % (Manual) Basophils % (Manual) Nucleated RBC % Seg Neutrophils # Seg Neutrophils # Man Lymphocytes # (Manual) Monocytes # (Manual) Eosinophils # (Manual) Basophils # (Manual) PT INR D-Dimer ABG pH ABG pO2 ABG HCO3 ABG O2 Saturation ABG Base Excess ABG Hemoglobin Oxyhemoglobin Sodium 120 L Potassium 5.1 H Chloride 90.0 L Carbon Dioxide 14 L BUN 26 H Creatinine 0.5 L Glucose POC Glucose Lactic Acid 3.30 H* Calcium 8.0 L Magnesium Iron 9 L TIBC 97 L Ferritin AST 73 H ALT 91 H Lactate Dehydrogenase Troponin T C-Reactive Protein Total Protein 5.5 L Albumin 2.0 L Prealbumin Cholesterol LDL Cholesterol Direct HDL Cholesterol Urine WBC (Auto) Vancomycin Trough Coronavirus (PCR) Crossmatch 07/04/19 07/04/19 07/04/19 09:39 09:39 09:39 WBC RBC Hgb Hct MCV MCH MCHC RDW Plt Count Lymph % (Auto) Miner % (Auto) Lymph # Miner # Baso # Seg Neutrophils % Seg Neuts % (Manual) Lymphocytes % (Manual) Monocytes % (Manual) Basophils % (Manual) Nucleated RBC % Seg Neutrophils # Seg Neutrophils # Man Lymphocytes # (Manual) Monocytes # (Manual) Eosinophils # (Manual) Basophils # (Manual) PT INR D-Dimer 1419.14 H ABG pH ABG pO2 ABG HCO3 ABG O2 Saturation ABG Base Excess ABG Hemoglobin Oxyhemoglobin Sodium Potassium Chloride Carbon Dioxide BUN Creatinine Glucose POC Glucose Lactic Acid Calcium Magnesium Iron TIBC Ferritin 1719.0 H AST ALT Lactate Dehydrogenase 234 H Troponin T C-Reactive Protein 15.50 H Total Protein Albumin Prealbumin Cholesterol LDL Cholesterol Direct HDL Cholesterol Urine WBC (Auto) Vancomycin Trough Coronavirus (PCR) Crossmatch 07/04/19 07/04/19 07/04/19 10:09 18:08 18:28 WBC RBC Hgb Hct MCV MCH MCHC RDW Plt Count Lymph % (Auto) Miner % (Auto) Lymph # Miner # Baso # Seg Neutrophils % Seg Neuts % (Manual) Lymphocytes % (Manual) Monocytes % (Manual) Basophils % (Manual) Nucleated RBC % Seg Neutrophils # Seg Neutrophils # Man Lymphocytes # (Manual) Monocytes # (Manual) Eosinophils # (Manual) Basophils # (Manual) PT INR D-Dimer ABG pH ABG pO2 ABG HCO3 ABG O2 Saturation ABG Base Excess ABG Hemoglobin Oxyhemoglobin Sodium 117 L* Potassium 5.6 H Chloride 90.3 L Carbon Dioxide 16 L BUN 28 H Creatinine 0.5 L Glucose 58 L POC Glucose 65 L Lactic Acid Calcium 8.2 L Magnesium Iron TIBC Ferritin AST ALT Lactate Dehydrogenase Troponin T C-Reactive Protein Total Protein Albumin Prealbumin Cholesterol LDL Cholesterol Direct HDL Cholesterol Urine WBC (Auto) Vancomycin Trough Coronavirus (PCR) Positive A Crossmatch 07/04/19 07/04/19 07/04/19 23:45 Unknown Unknown WBC RBC Hgb Hct MCV MCH MCHC RDW Plt Count Lymph % (Auto) Miner % (Auto) Lymph # Miner # Baso # Seg Neutrophils % Seg Neuts % (Manual) Lymphocytes % (Manual) Monocytes % (Manual) Basophils % (Manual) Nucleated RBC % Seg Neutrophils # Seg Neutrophils # Man Lymphocytes # (Manual) Monocytes # (Manual) Eosinophils # (Manual) Basophils # (Manual) PT INR D-Dimer 759.77 H ABG pH ABG pO2 ABG HCO3 ABG O2 Saturation ABG Base Excess ABG Hemoglobin Oxyhemoglobin Sodium 122 L Potassium Chloride 93.0 L Carbon Dioxide 19 L BUN 27 H Creatinine 0.5 L Glucose POC Glucose Lactic Acid Calcium 8.3 L Magnesium Iron TIBC Ferritin 1301.0 H AST ALT Lactate Dehydrogenase Troponin T C-Reactive Protein Total Protein Albumin Prealbumin Cholesterol LDL Cholesterol Direct HDL Cholesterol Urine WBC (Auto) Vancomycin Trough Coronavirus (PCR) Crossmatch 07/04/19 07/05/19 07/05/19 Unknown 03:20 04:00 WBC RBC Hgb Hct MCV MCH MCHC RDW Plt Count Lymph % (Auto) Miner % (Auto) Lymph # Miner # Baso # Seg Neutrophils % Seg Neuts % (Manual) Lymphocytes % (Manual) Monocytes % (Manual) Basophils % (Manual) Nucleated RBC % Seg Neutrophils # Seg Neutrophils # Man Lymphocytes # (Manual) Monocytes # (Manual) Eosinophils # (Manual) Basophils # (Manual) PT INR D-Dimer ABG pH ABG pO2 60.6 L ABG HCO3 ABG O2 Saturation 93.5 L ABG Base Excess -2.4 L ABG Hemoglobin 6.9 L Oxyhemoglobin 92.0 L Sodium 125 L Potassium Chloride 92.6 L Carbon Dioxide 19 L BUN 24 H Creatinine 0.6 L Glucose POC Glucose Lactic Acid Calcium 8.2 L Magnesium 1.40 L Iron TIBC Ferritin AST ALT Lactate Dehydrogenase 242 H Troponin T C-Reactive Protein 16.70 H Total Protein Albumin Prealbumin Cholesterol LDL Cholesterol Direct HDL Cholesterol Urine WBC (Auto) Vancomycin Trough Coronavirus (PCR) Crossmatch 07/05/19 07/05/19 07/05/19 10:11 16:15 17:54 WBC 46.4 H* RBC 2.77 L Hgb 7.2 L Hct 21.9 L MCV 79 L MCH 26 L MCHC RDW 19.0 H Plt Count Lymph % (Auto) Miner % (Auto) Lymph # Miner # Baso # Seg Neutrophils % Seg Neuts % (Manual) 82.0 H Lymphocytes % (Manual) 1.0 L Monocytes % (Manual) Basophils % (Manual) Nucleated RBC % Seg Neutrophils # Seg Neutrophils # Man 38.0 H Lymphocytes # (Manual) 0.5 L Monocytes # (Manual) Eosinophils # (Manual) Basophils # (Manual) PT INR D-Dimer ABG pH ABG pO2 ABG HCO3 ABG O2 Saturation ABG Base Excess ABG Hemoglobin Oxyhemoglobin Sodium Potassium Chloride Carbon Dioxide BUN Creatinine Glucose POC Glucose 69 L Lactic Acid Calcium Magnesium Iron TIBC Ferritin AST ALT Lactate Dehydrogenase Troponin T C-Reactive Protein Total Protein Albumin Prealbumin Cholesterol LDL Cholesterol Direct HDL Cholesterol Urine WBC (Auto) Vancomycin Trough 23.2 H Coronavirus (PCR) Crossmatch 07/05/19 07/06/19 07/06/19 19:58 00:27 00:27 WBC RBC Hgb Hct MCV MCH MCHC RDW Plt Count Lymph % (Auto) Miner % (Auto) Lymph # Miner # Baso # Seg Neutrophils % Seg Neuts % (Manual) Lymphocytes % (Manual) Monocytes % (Manual) Basophils % (Manual) Nucleated RBC % Seg Neutrophils # Seg Neutrophils # Man Lymphocytes # (Manual) Monocytes # (Manual) Eosinophils # (Manual) Basophils # (Manual) PT INR D-Dimer 1333.22 H ABG pH ABG pO2 ABG HCO3 ABG O2 Saturation ABG Base Excess ABG Hemoglobin Oxyhemoglobin Sodium 127 L Potassium Chloride Carbon Dioxide BUN Creatinine Glucose POC Glucose Lactic Acid Calcium Magnesium Iron TIBC Ferritin 977.1 H AST ALT Lactate Dehydrogenase Troponin T C-Reactive Protein Total Protein Albumin Prealbumin Cholesterol LDL Cholesterol Direct HDL Cholesterol Urine WBC (Auto) Vancomycin Trough Coronavirus (PCR) Crossmatch 07/06/19 07/06/19 07/06/19 00:27 02:00 02:56 WBC RBC Hgb Hct MCV MCH MCHC RDW Plt Count Lymph % (Auto) Miner % (Auto) Lymph # Miner # Baso # Seg Neutrophils % Seg Neuts % (Manual) Lymphocytes % (Manual) Monocytes % (Manual) Basophils % (Manual) Nucleated RBC % Seg Neutrophils # Seg Neutrophils # Man Lymphocytes # (Manual) Monocytes # (Manual) Eosinophils # (Manual) Basophils # (Manual) PT INR D-Dimer ABG pH ABG pO2 70.3 L ABG HCO3 ABG O2 Saturation 94.8 L ABG Base Excess ABG Hemoglobin 8.0 L Oxyhemoglobin 93.2 L Sodium Potassium Chloride Carbon Dioxide BUN Creatinine Glucose POC Glucose 117 H Lactic Acid Calcium Magnesium Iron TIBC Ferritin AST ALT Lactate Dehydrogenase 236 H Troponin T C-Reactive Protein 22.90 H Total Protein Albumin Prealbumin Cholesterol LDL Cholesterol Direct HDL Cholesterol Urine WBC (Auto) Vancomycin Trough Coronavirus (PCR) Crossmatch 07/06/19 07/06/19 07/06/19 03:49 03:49 07:40 WBC 38.8 H RBC 2.51 L Hgb 6.7 L Hct 19.9 L* MCV 79 L MCH 27 L MCHC RDW 19.2 H Plt Count Lymph % (Auto) Miner % (Auto) Lymph # Miner # Baso # Seg Neutrophils % Seg Neuts % (Manual) 90.5 H Lymphocytes % (Manual) 1.0 L Monocytes % (Manual) Basophils % (Manual) Nucleated RBC % Seg Neutrophils # Seg Neutrophils # Man 35.1 H Lymphocytes # (Manual) 0.4 L Monocytes # (Manual) Eosinophils # (Manual) Basophils # (Manual) PT INR D-Dimer ABG pH ABG pO2 ABG HCO3 ABG O2 Saturation ABG Base Excess ABG Hemoglobin Oxyhemoglobin Sodium 131 L Potassium Chloride 96.9 L Carbon Dioxide 18 L BUN 23 H Creatinine 0.5 L Glucose POC Glucose Lactic Acid Calcium 8.0 L Magnesium Iron TIBC Ferritin AST ALT Lactate Dehydrogenase Troponin T C-Reactive Protein Total Protein Albumin Prealbumin Cholesterol LDL Cholesterol Direct HDL Cholesterol Urine WBC (Auto) Vancomycin Trough Coronavirus (PCR) Crossmatch See Detail 07/06/19 07/06/19 07/06/19 12:38 14:39 20:00 WBC RBC Hgb Hct MCV MCH MCHC RDW Plt Count Lymph % (Auto) Miner % (Auto) Lymph # Miner # Baso # Seg Neutrophils % Seg Neuts % (Manual) Lymphocytes % (Manual) Monocytes % (Manual) Basophils % (Manual) Nucleated RBC % Seg Neutrophils # Seg Neutrophils # Man Lymphocytes # (Manual) Monocytes # (Manual) Eosinophils # (Manual) Basophils # (Manual) PT INR D-Dimer ABG pH ABG pO2 ABG HCO3 ABG O2 Saturation ABG Base Excess ABG Hemoglobin Oxyhemoglobin Sodium Potassium Chloride Carbon Dioxide BUN Creatinine Glucose POC Glucose 112 H 111 H 140 H Lactic Acid Calcium Magnesium Iron TIBC Ferritin AST ALT Lactate Dehydrogenase Troponin T C-Reactive Protein Total Protein Albumin Prealbumin Cholesterol LDL Cholesterol Direct HDL Cholesterol Urine WBC (Auto) Vancomycin Trough Coronavirus (PCR) Crossmatch 07/06/19 07/06/19 07/07/19 22:43 22:56 02:20 WBC RBC Hgb 7.9 L Hct 23.1 L MCV MCH MCHC RDW Plt Count Lymph % (Auto) Miner % (Auto) Lymph # Miner # Baso # Seg Neutrophils % Seg Neuts % (Manual) Lymphocytes % (Manual) Monocytes % (Manual) Basophils % (Manual) Nucleated RBC % Seg Neutrophils # Seg Neutrophils # Man Lymphocytes # (Manual) Monocytes # (Manual) Eosinophils # (Manual) Basophils # (Manual) PT INR D-Dimer ABG pH ABG pO2 ABG HCO3 ABG O2 Saturation ABG Base Excess ABG Hemoglobin Oxyhemoglobin Sodium Potassium Chloride Carbon Dioxide BUN Creatinine Glucose POC Glucose 122 H 149 H Lactic Acid Calcium Magnesium Iron TIBC Ferritin AST ALT Lactate Dehydrogenase Troponin T C-Reactive Protein Total Protein Albumin Prealbumin Cholesterol LDL Cholesterol Direct HDL Cholesterol Urine WBC (Auto) Vancomycin Trough Coronavirus (PCR) Crossmatch 07/07/19 07/07/19 07/07/19 04:35 05:27 05:34 WBC 23.1 H RBC 3.00 L Hgb 8.1 L Hct 24.2 L MCV 81 L MCH 27 L MCHC RDW 20.6 H Plt Count Lymph % (Auto) Miner % (Auto) Lymph # Miner # Baso # Seg Neutrophils % Seg Neuts % (Manual) 90.0 H Lymphocytes % (Manual) 2.0 L Monocytes % (Manual) Basophils % (Manual) Nucleated RBC % Seg Neutrophils # Seg Neutrophils # Man 20.8 H Lymphocytes # (Manual) 0.5 L Monocytes # (Manual) Eosinophils # (Manual) Basophils # (Manual) PT INR D-Dimer ABG pH ABG pO2 65.8 L ABG HCO3 ABG O2 Saturation 92.2 L ABG Base Excess ABG Hemoglobin 8.3 L Oxyhemoglobin 90.6 L Sodium Potassium Chloride Carbon Dioxide BUN Creatinine Glucose POC Glucose 132 H Lactic Acid Calcium Magnesium Iron TIBC Ferritin AST ALT Lactate Dehydrogenase Troponin T C-Reactive Protein Total Protein Albumin Prealbumin Cholesterol LDL Cholesterol Direct HDL Cholesterol Urine WBC (Auto) Vancomycin Trough Coronavirus (PCR) Crossmatch 07/07/19 07/07/19 07/07/19 05:34 11:50 15:58 WBC RBC Hgb 8.1 L Hct 24.2 L MCV MCH MCHC RDW Plt Count Lymph % (Auto) Miner % (Auto) Lymph # Miner # Baso # Seg Neutrophils % Seg Neuts % (Manual) Lymphocytes % (Manual) Monocytes % (Manual) Basophils % (Manual) Nucleated RBC % Seg Neutrophils # Seg Neutrophils # Man Lymphocytes # (Manual) Monocytes # (Manual) Eosinophils # (Manual) Basophils # (Manual) PT INR D-Dimer ABG pH ABG pO2 ABG HCO3 ABG O2 Saturation ABG Base Excess ABG Hemoglobin Oxyhemoglobin Sodium 135 L Potassium 3.3 L Chloride Carbon Dioxide 20 L BUN 27 H Creatinine 0.6 L Glucose 121 H POC Glucose 123 H Lactic Acid Calcium 8.0 L Magnesium Iron TIBC Ferritin AST ALT Lactate Dehydrogenase Troponin T C-Reactive Protein Total Protein Albumin Prealbumin Cholesterol LDL Cholesterol Direct HDL Cholesterol Urine WBC (Auto) Vancomycin Trough Coronavirus (PCR) Crossmatch 07/07/19 07/07/19 07/07/19 17:42 22:00 23:53 WBC RBC Hgb 8.0 L Hct 23.4 L MCV MCH MCHC RDW Plt Count Lymph % (Auto) Miner % (Auto) Lymph # Miner # Baso # Seg Neutrophils % Seg Neuts % (Manual) Lymphocytes % (Manual) Monocytes % (Manual) Basophils % (Manual) Nucleated RBC % Seg Neutrophils # Seg Neutrophils # Man Lymphocytes # (Manual) Monocytes # (Manual) Eosinophils # (Manual) Basophils # (Manual) PT INR D-Dimer ABG pH ABG pO2 ABG HCO3 ABG O2 Saturation ABG Base Excess ABG Hemoglobin Oxyhemoglobin Sodium Potassium Chloride Carbon Dioxide BUN Creatinine Glucose POC Glucose 107 H 117 H Lactic Acid Calcium Magnesium Iron TIBC Ferritin AST ALT Lactate Dehydrogenase Troponin T C-Reactive Protein Total Protein Albumin Prealbumin Cholesterol LDL Cholesterol Direct HDL Cholesterol Urine WBC (Auto) Vancomycin Trough Coronavirus (PCR) Crossmatch 07/08/19 07/08/19 07/08/19 00:45 00:45 00:45 WBC RBC Hgb Hct MCV MCH MCHC RDW Plt Count Lymph % (Auto) Miner % (Auto) Lymph # Miner # Baso # Seg Neutrophils % Seg Neuts % (Manual) Lymphocytes % (Manual) Monocytes % (Manual) Basophils % (Manual) Nucleated RBC % Seg Neutrophils # Seg Neutrophils # Man Lymphocytes # (Manual) Monocytes # (Manual) Eosinophils # (Manual) Basophils # (Manual) PT INR D-Dimer 1142.18 H ABG pH ABG pO2 ABG HCO3 ABG O2 Saturation ABG Base Excess ABG Hemoglobin Oxyhemoglobin Sodium Potassium Chloride Carbon Dioxide BUN Creatinine Glucose POC Glucose Lactic Acid Calcium Magnesium Iron TIBC Ferritin 839.0 H AST ALT Lactate Dehydrogenase 253 H Troponin T C-Reactive Protein 18.90 H Total Protein Albumin Prealbumin Cholesterol LDL Cholesterol Direct HDL Cholesterol Urine WBC (Auto) Vancomycin Trough Coronavirus (PCR) Crossmatch 07/08/19 07/08/19 07/08/19 04:30 05:11 12:02 WBC RBC Hgb Hct MCV MCH MCHC RDW Plt Count Lymph % (Auto) Miner % (Auto) Lymph # Miner # Baso # Seg Neutrophils % Seg Neuts % (Manual) Lymphocytes % (Manual) Monocytes % (Manual) Basophils % (Manual) Nucleated RBC % Seg Neutrophils # Seg Neutrophils # Man Lymphocytes # (Manual) Monocytes # (Manual) Eosinophils # (Manual) Basophils # (Manual) PT INR D-Dimer ABG pH ABG pO2 66.0 L ABG HCO3 ABG O2 Saturation 92.3 L ABG Base Excess ABG Hemoglobin 7.7 L Oxyhemoglobin 90.7 L Sodium Potassium Chloride Carbon Dioxide BUN Creatinine Glucose POC Glucose 108 H 153 H Lactic Acid Calcium Magnesium Iron TIBC Ferritin AST ALT Lactate Dehydrogenase Troponin T C-Reactive Protein Total Protein Albumin Prealbumin Cholesterol LDL Cholesterol Direct HDL Cholesterol Urine WBC (Auto) Vancomycin Trough Coronavirus (PCR) Crossmatch 07/08/19 07/08/19 07/08/19 16:15 18:22 23:35 WBC RBC Hgb Hct MCV MCH MCHC RDW Plt Count Lymph % (Auto) Miner % (Auto) Lymph # Miner # Baso # Seg Neutrophils % Seg Neuts % (Manual) Lymphocytes % (Manual) Monocytes % (Manual) Basophils % (Manual) Nucleated RBC % Seg Neutrophils # Seg Neutrophils # Man Lymphocytes # (Manual) Monocytes # (Manual) Eosinophils # (Manual) Basophils # (Manual) PT INR D-Dimer ABG pH ABG pO2 ABG HCO3 ABG O2 Saturation ABG Base Excess ABG Hemoglobin Oxyhemoglobin Sodium 134 L Potassium 3.3 L Chloride Carbon Dioxide 21 L BUN 27 H Creatinine 0.6 L Glucose 146 H POC Glucose 134 H 133 H Lactic Acid Calcium Magnesium Iron TIBC Ferritin AST ALT Lactate Dehydrogenase Troponin T C-Reactive Protein Total Protein Albumin Prealbumin Cholesterol LDL Cholesterol Direct HDL Cholesterol Urine WBC (Auto) Vancomycin Trough Coronavirus (PCR) Crossmatch 07/09/19 07/09/19 07/09/19 04:30 04:30 05:00 WBC 18.9 H RBC 2.77 L Hgb 7.4 L Hct 22.8 L MCV 82 L MCH 27 L MCHC RDW 20.9 H Plt Count 130 L Lymph % (Auto) Miner % (Auto) Lymph # Miner # Baso # Seg Neutrophils % Seg Neuts % (Manual) 84.0 H Lymphocytes % (Manual) 0 L Monocytes % (Manual) Basophils % (Manual) Nucleated RBC % Seg Neutrophils # Seg Neutrophils # Man 15.9 H Lymphocytes # (Manual) 0.0 L Monocytes # (Manual) Eosinophils # (Manual) Basophils # (Manual) PT INR D-Dimer ABG pH ABG pO2 ABG HCO3 ABG O2 Saturation ABG Base Excess ABG Hemoglobin Oxyhemoglobin Sodium Potassium 3.1 L Chloride Carbon Dioxide BUN 26 H Creatinine 0.5 L Glucose 125 H POC Glucose 155 H Lactic Acid Calcium Magnesium Iron TIBC Ferritin AST ALT Lactate Dehydrogenase Troponin T C-Reactive Protein Total Protein Albumin Prealbumin Cholesterol LDL Cholesterol Direct HDL Cholesterol Urine WBC (Auto) Vancomycin Trough Coronavirus (PCR) Crossmatch 07/09/19 07/09/19 07/09/19 05:55 12:22 17:50 WBC RBC Hgb Hct MCV MCH MCHC RDW Plt Count Lymph % (Auto) Miner % (Auto) Lymph # Miner # Baso # Seg Neutrophils % Seg Neuts % (Manual) Lymphocytes % (Manual) Monocytes % (Manual) Basophils % (Manual) Nucleated RBC % Seg Neutrophils # Seg Neutrophils # Man Lymphocytes # (Manual) Monocytes # (Manual) Eosinophils # (Manual) Basophils # (Manual) PT INR D-Dimer ABG pH ABG pO2 62.8 L ABG HCO3 ABG O2 Saturation ABG Base Excess ABG Hemoglobin 6.1 L Oxyhemoglobin 93.9 L Sodium Potassium Chloride Carbon Dioxide BUN Creatinine Glucose POC Glucose 115 H 133 H Lactic Acid Calcium Magnesium Iron TIBC Ferritin AST ALT Lactate Dehydrogenase Troponin T C-Reactive Protein Total Protein Albumin Prealbumin Cholesterol LDL Cholesterol Direct HDL Cholesterol Urine WBC (Auto) Vancomycin Trough Coronavirus (PCR) Crossmatch 07/10/19 07/10/19 07/10/19 00:38 04:00 04:00 WBC RBC Hgb Hct MCV MCH MCHC RDW Plt Count Lymph % (Auto) Miner % (Auto) Lymph # Miner # Baso # Seg Neutrophils % Seg Neuts % (Manual) Lymphocytes % (Manual) Monocytes % (Manual) Basophils % (Manual) Nucleated RBC % Seg Neutrophils # Seg Neutrophils # Man Lymphocytes # (Manual) Monocytes # (Manual) Eosinophils # (Manual) Basophils # (Manual) PT INR D-Dimer ABG pH ABG pO2 ABG HCO3 ABG O2 Saturation ABG Base Excess ABG Hemoglobin Oxyhemoglobin Sodium Potassium Chloride 107.9 H Carbon Dioxide BUN 26 H Creatinine 0.4 L Glucose 137 H POC Glucose 122 H Lactic Acid Calcium Magnesium 1.50 L Iron TIBC Ferritin AST ALT Lactate Dehydrogenase 277 H Troponin T C-Reactive Protein 15.10 H Total Protein Albumin Prealbumin Cholesterol LDL Cholesterol Direct HDL Cholesterol Urine WBC (Auto) Vancomycin Trough Coronavirus (PCR) Crossmatch 07/10/19 07/10/19 07/10/19 04:07 05:21 17:25 WBC RBC Hgb Hct MCV MCH MCHC RDW Plt Count Lymph % (Auto) Miner % (Auto) Lymph # Miner # Baso # Seg Neutrophils % Seg Neuts % (Manual) Lymphocytes % (Manual) Monocytes % (Manual) Basophils % (Manual) Nucleated RBC % Seg Neutrophils # Seg Neutrophils # Man Lymphocytes # (Manual) Monocytes # (Manual) Eosinophils # (Manual) Basophils # (Manual) PT INR D-Dimer ABG pH ABG pO2 65.6 L ABG HCO3 26.3 H ABG O2 Saturation ABG Base Excess ABG Hemoglobin 6.7 L Oxyhemoglobin Sodium Potassium Chloride Carbon Dioxide BUN Creatinine Glucose POC Glucose 144 H 113 H Lactic Acid Calcium Magnesium Iron TIBC Ferritin AST ALT Lactate Dehydrogenase Troponin T C-Reactive Protein Total Protein Albumin Prealbumin Cholesterol LDL Cholesterol Direct HDL Cholesterol Urine WBC (Auto) Vancomycin Trough Coronavirus (PCR) Crossmatch 07/11/19 07/11/19 07/11/19 00:07 05:14 05:25 WBC RBC Hgb Hct MCV MCH MCHC RDW Plt Count Lymph % (Auto) Miner % (Auto) Lymph # Miner # Baso # Seg Neutrophils % Seg Neuts % (Manual) Lymphocytes % (Manual) Monocytes % (Manual) Basophils % (Manual) Nucleated RBC % Seg Neutrophils # Seg Neutrophils # Man Lymphocytes # (Manual) Monocytes # (Manual) Eosinophils # (Manual) Basophils # (Manual) PT INR D-Dimer ABG pH ABG pO2 ABG HCO3 ABG O2 Saturation ABG Base Excess ABG Hemoglobin 5.8 L Oxyhemoglobin Sodium Potassium Chloride 108.0 H Carbon Dioxide BUN 26 H Creatinine 0.4 L Glucose 110 H POC Glucose 121 H Lactic Acid Calcium Magnesium Iron TIBC Ferritin AST ALT Lactate Dehydrogenase Troponin T C-Reactive Protein Total Protein Albumin Prealbumin Cholesterol LDL Cholesterol Direct HDL Cholesterol Urine WBC (Auto) Vancomycin Trough Coronavirus (PCR) Crossmatch 07/11/19 07/11/19 07/11/19 12:27 18:00 23:42 WBC RBC Hgb Hct MCV MCH MCHC RDW Plt Count Lymph % (Auto) Miner % (Auto) Lymph # Miner # Baso # Seg Neutrophils % Seg Neuts % (Manual) Lymphocytes % (Manual) Monocytes % (Manual) Basophils % (Manual) Nucleated RBC % Seg Neutrophils # Seg Neutrophils # Man Lymphocytes # (Manual) Monocytes # (Manual) Eosinophils # (Manual) Basophils # (Manual) PT INR D-Dimer ABG pH ABG pO2 ABG HCO3 ABG O2 Saturation ABG Base Excess ABG Hemoglobin Oxyhemoglobin Sodium Potassium Chloride Carbon Dioxide BUN Creatinine Glucose POC Glucose 158 H 141 H 142 H Lactic Acid Calcium Magnesium Iron TIBC Ferritin AST ALT Lactate Dehydrogenase Troponin T C-Reactive Protein Total Protein Albumin Prealbumin Cholesterol LDL Cholesterol Direct HDL Cholesterol Urine WBC (Auto) Vancomycin Trough Coronavirus (PCR) Crossmatch 07/12/19 07/12/19 07/12/19 04:46 04:46 05:23 WBC 23.6 H RBC 2.51 L Hgb 6.7 L Hct 20.8 L MCV 83 L MCH 27 L MCHC RDW 20.3 H Plt Count Lymph % (Auto) Miner % (Auto) Lymph # Miner # Baso # Seg Neutrophils % Seg Neuts % (Manual) 94.0 H Lymphocytes % (Manual) 4.0 L Monocytes % (Manual) Basophils % (Manual) Nucleated RBC % Seg Neutrophils # Seg Neutrophils # Man 22.2 H Lymphocytes # (Manual) 0.9 L Monocytes # (Manual) Eosinophils # (Manual) Basophils # (Manual) PT INR D-Dimer ABG pH ABG pO2 ABG HCO3 ABG O2 Saturation ABG Base Excess ABG Hemoglobin Oxyhemoglobin Sodium Potassium Chloride 107.1 H Carbon Dioxide BUN 25 H Creatinine 0.4 L Glucose 122 H POC Glucose 118 H Lactic Acid Calcium Magnesium Iron TIBC Ferritin AST ALT Lactate Dehydrogenase Troponin T C-Reactive Protein Total Protein Albumin Prealbumin Cholesterol LDL Cholesterol Direct HDL Cholesterol Urine WBC (Auto) Vancomycin Trough Coronavirus (PCR) Crossmatch 07/12/19 07/12/19 07/12/19 08:49 11:36 18:15 WBC RBC Hgb Hct MCV MCH MCHC RDW Plt Count Lymph % (Auto) Miner % (Auto) Lymph # Miner # Baso # Seg Neutrophils % Seg Neuts % (Manual) Lymphocytes % (Manual) Monocytes % (Manual) Basophils % (Manual) Nucleated RBC % Seg Neutrophils # Seg Neutrophils # Man Lymphocytes # (Manual) Monocytes # (Manual) Eosinophils # (Manual) Basophils # (Manual) PT INR D-Dimer ABG pH ABG pO2 ABG HCO3 ABG O2 Saturation ABG Base Excess ABG Hemoglobin Oxyhemoglobin Sodium Potassium Chloride Carbon Dioxide BUN Creatinine Glucose POC Glucose 124 H 110 H Lactic Acid Calcium Magnesium Iron TIBC Ferritin AST ALT Lactate Dehydrogenase Troponin T C-Reactive Protein Total Protein Albumin Prealbumin Cholesterol LDL Cholesterol Direct HDL Cholesterol Urine WBC (Auto) Vancomycin Trough Coronavirus (PCR) Crossmatch See Detail 07/12/19 07/13/19 07/13/19 23:16 05:26 06:50 WBC 23.9 H RBC 2.58 L Hgb 6.9 L Hct 21.5 L MCV 83 L MCH 27 L MCHC RDW 19.0 H Plt Count Lymph % (Auto) Miner % (Auto) Lymph # Miner # Baso # Seg Neutrophils % Seg Neuts % (Manual) 96.0 H Lymphocytes % (Manual) 3.0 L Monocytes % (Manual) Basophils % (Manual) Nucleated RBC % Seg Neutrophils # Seg Neutrophils # Man 22.9 H Lymphocytes # (Manual) 0.7 L Monocytes # (Manual) Eosinophils # (Manual) Basophils # (Manual) PT INR D-Dimer ABG pH ABG pO2 ABG HCO3 ABG O2 Saturation ABG Base Excess ABG Hemoglobin Oxyhemoglobin Sodium Potassium Chloride Carbon Dioxide BUN Creatinine Glucose POC Glucose 108 H 126 H Lactic Acid Calcium Magnesium Iron TIBC Ferritin AST ALT Lactate Dehydrogenase Troponin T C-Reactive Protein Total Protein Albumin Prealbumin Cholesterol LDL Cholesterol Direct HDL Cholesterol Urine WBC (Auto) Vancomycin Trough Coronavirus (PCR) Crossmatch 07/13/19 07/13/19 07/13/19 06:50 12:38 18:05 WBC RBC Hgb Hct MCV MCH MCHC RDW Plt Count Lymph % (Auto) Miner % (Auto) Lymph # Miner # Baso # Seg Neutrophils % Seg Neuts % (Manual) Lymphocytes % (Manual) Monocytes % (Manual) Basophils % (Manual) Nucleated RBC % Seg Neutrophils # Seg Neutrophils # Man Lymphocytes # (Manual) Monocytes # (Manual) Eosinophils # (Manual) Basophils # (Manual) PT INR D-Dimer ABG pH ABG pO2 ABG HCO3 ABG O2 Saturation ABG Base Excess ABG Hemoglobin Oxyhemoglobin Sodium Potassium Chloride Carbon Dioxide BUN 33 H Creatinine 0.5 L Glucose 136 H POC Glucose 164 H 145 H Lactic Acid Calcium Magnesium Iron TIBC Ferritin AST ALT Lactate Dehydrogenase Troponin T C-Reactive Protein Total Protein Albumin Prealbumin Cholesterol LDL Cholesterol Direct HDL Cholesterol Urine WBC (Auto) Vancomycin Trough Coronavirus (PCR) Crossmatch 07/13/19 07/14/19 07/14/19 18:30 00:21 04:40 WBC 22.9 H RBC 2.45 L Hgb 6.6 L Hct 21.1 L MCV MCH 27 L MCHC 31 L RDW 19.2 H Plt Count Lymph % (Auto) Miner % (Auto) Lymph # Miner # Baso # Seg Neutrophils % Seg Neuts % (Manual) 91.0 H Lymphocytes % (Manual) 7.0 L Monocytes % (Manual) Basophils % (Manual) Nucleated RBC % Seg Neutrophils # Seg Neutrophils # Man 20.8 H Lymphocytes # (Manual) Monocytes # (Manual) Eosinophils # (Manual) Basophils # (Manual) PT INR D-Dimer ABG pH ABG pO2 58.1 L ABG HCO3 ABG O2 Saturation 88.7 L ABG Base Excess ABG Hemoglobin 7.8 L Oxyhemoglobin 86.8 L Sodium Potassium Chloride Carbon Dioxide BUN Creatinine Glucose POC Glucose 118 H Lactic Acid Calcium Magnesium Iron TIBC Ferritin AST ALT Lactate Dehydrogenase Troponin T C-Reactive Protein Total Protein Albumin Prealbumin Cholesterol LDL Cholesterol Direct HDL Cholesterol Urine WBC (Auto) Vancomycin Trough Coronavirus (PCR) Crossmatch 07/14/19 07/14/19 07/14/19 04:40 05:38 05:45 WBC RBC Hgb Hct MCV MCH MCHC RDW Plt Count Lymph % (Auto) Miner % (Auto) Lymph # Miner # Baso # Seg Neutrophils % Seg Neuts % (Manual) Lymphocytes % (Manual) Monocytes % (Manual) Basophils % (Manual) Nucleated RBC % Seg Neutrophils # Seg Neutrophils # Man Lymphocytes # (Manual) Monocytes # (Manual) Eosinophils # (Manual) Basophils # (Manual) PT INR D-Dimer ABG pH 7.230 L ABG pO2 72.1 L ABG HCO3 ABG O2 Saturation 89.3 L ABG Base Excess -2.7 L ABG Hemoglobin 6.7 L Oxyhemoglobin 87.7 L Sodium Potassium Chloride 107.4 H Carbon Dioxide BUN 45 H Creatinine Glucose 101 H POC Glucose 154 H Lactic Acid Calcium Magnesium Iron TIBC Ferritin AST ALT Lactate Dehydrogenase Troponin T C-Reactive Protein Total Protein Albumin Prealbumin Cholesterol LDL Cholesterol Direct HDL Cholesterol Urine WBC (Auto) Vancomycin Trough Coronavirus (PCR) Crossmatch 07/14/19 07/14/19 07/14/19 12:25 18:20 19:01 WBC 22.4 H RBC 2.70 L Hgb 7.5 L Hct 23.3 L MCV MCH MCHC RDW 19.5 H Plt Count Lymph % (Auto) Miner % (Auto) Lymph # Miner # Baso # Seg Neutrophils % Seg Neuts % (Manual) Lymphocytes % (Manual) Monocytes % (Manual) Basophils % (Manual) Nucleated RBC % Seg Neutrophils # Seg Neutrophils # Man Lymphocytes # (Manual) Monocytes # (Manual) Eosinophils # (Manual) Basophils # (Manual) PT INR D-Dimer ABG pH ABG pO2 ABG HCO3 ABG O2 Saturation ABG Base Excess ABG Hemoglobin Oxyhemoglobin Sodium Potassium Chloride Carbon Dioxide BUN Creatinine Glucose POC Glucose 136 H 131 H Lactic Acid Calcium Magnesium Iron TIBC Ferritin AST ALT Lactate Dehydrogenase Troponin T C-Reactive Protein Total Protein Albumin Prealbumin Cholesterol LDL Cholesterol Direct HDL Cholesterol Urine WBC (Auto) Vancomycin Trough Coronavirus (PCR) Crossmatch 07/15/19 07/15/19 07/15/19 00:17 04:35 05:18 WBC 20.6 H RBC 2.41 L Hgb 6.8 L Hct 20.7 L MCV MCH MCHC RDW 20.2 H Plt Count Lymph % (Auto) Miner % (Auto) Lymph # Miner # Baso # Seg Neutrophils % Seg Neuts % (Manual) 92.0 H Lymphocytes % (Manual) 5.0 L Monocytes % (Manual) Basophils % (Manual) Nucleated RBC % Seg Neutrophils # Seg Neutrophils # Man 19.0 H Lymphocytes # (Manual) 1.0 L Monocytes # (Manual) Eosinophils # (Manual) Basophils # (Manual) PT INR D-Dimer ABG pH 7.342 L ABG pO2 ABG HCO3 ABG O2 Saturation ABG Base Excess -3.1 L ABG Hemoglobin 7.2 L Oxyhemoglobin 94.9 L Sodium Potassium Chloride Carbon Dioxide BUN Creatinine Glucose POC Glucose 116 H Lactic Acid Calcium Magnesium Iron TIBC Ferritin AST ALT Lactate Dehydrogenase Troponin T C-Reactive Protein Total Protein Albumin Prealbumin Cholesterol LDL Cholesterol Direct HDL Cholesterol Urine WBC (Auto) Vancomycin Trough Coronavirus (PCR) Crossmatch 07/15/19 07/15/19 07/15/19 05:18 05:57 11:28 WBC RBC Hgb Hct MCV MCH MCHC RDW Plt Count Lymph % (Auto) Miner % (Auto) Lymph # Miner # Baso # Seg Neutrophils % Seg Neuts % (Manual) Lymphocytes % (Manual) Monocytes % (Manual) Basophils % (Manual) Nucleated RBC % Seg Neutrophils # Seg Neutrophils # Man Lymphocytes # (Manual) Monocytes # (Manual) Eosinophils # (Manual) Basophils # (Manual) PT INR D-Dimer ABG pH ABG pO2 ABG HCO3 ABG O2 Saturation ABG Base Excess ABG Hemoglobin Oxyhemoglobin Sodium Potassium Chloride Carbon Dioxide 20 L BUN 59 H Creatinine Glucose 140 H POC Glucose 139 H 117 H Lactic Acid Calcium Magnesium Iron TIBC Ferritin AST ALT Lactate Dehydrogenase Troponin T C-Reactive Protein Total Protein Albumin Prealbumin Cholesterol LDL Cholesterol Direct HDL Cholesterol Urine WBC (Auto) Vancomycin Trough Coronavirus (PCR) Crossmatch 07/15/19 07/16/19 07/16/19 18:13 00:06 03:43 WBC RBC Hgb Hct MCV MCH MCHC RDW Plt Count Lymph % (Auto) Miner % (Auto) Lymph # Miner # Baso # Seg Neutrophils % Seg Neuts % (Manual) Lymphocytes % (Manual) Monocytes % (Manual) Basophils % (Manual) Nucleated RBC % Seg Neutrophils # Seg Neutrophils # Man Lymphocytes # (Manual) Monocytes # (Manual) Eosinophils # (Manual) Basophils # (Manual) PT INR D-Dimer ABG pH 7.344 L ABG pO2 68.6 L ABG HCO3 ABG O2 Saturation ABG Base Excess -3.5 L ABG Hemoglobin 6.1 L Oxyhemoglobin 93.3 L Sodium Potassium Chloride Carbon Dioxide BUN Creatinine Glucose POC Glucose 114 H 119 H Lactic Acid Calcium Magnesium Iron TIBC Ferritin AST ALT Lactate Dehydrogenase Troponin T C-Reactive Protein Total Protein Albumin Prealbumin Cholesterol LDL Cholesterol Direct HDL Cholesterol Urine WBC (Auto) Vancomycin Trough Coronavirus (PCR) Crossmatch 07/16/19 07/16/19 07/16/19 04:41 04:41 12:09 WBC 19.6 H RBC 2.81 L Hgb 7.7 L Hct 24.0 L MCV MCH 27 L MCHC RDW 19.4 H Plt Count 514 H Lymph % (Auto) 6.7 L Miner % (Auto) Lymph # Miner # 1.0 H Baso # Seg Neutrophils % 87.0 H Seg Neuts % (Manual) Lymphocytes % (Manual) Monocytes % (Manual) Basophils % (Manual) Nucleated RBC % Seg Neutrophils # 17.0 H Seg Neutrophils # Man Lymphocytes # (Manual) Monocytes # (Manual) Eosinophils # (Manual) Basophils # (Manual) PT INR D-Dimer ABG pH ABG pO2 ABG HCO3 ABG O2 Saturation ABG Base Excess ABG Hemoglobin Oxyhemoglobin Sodium Potassium 5.9 H Chloride Carbon Dioxide 21 L BUN 73 H Creatinine 2.0 H Glucose POC Glucose 141 H Lactic Acid Calcium Magnesium Iron TIBC Ferritin AST ALT Lactate Dehydrogenase Troponin T C-Reactive Protein Total Protein Albumin Prealbumin Cholesterol LDL Cholesterol Direct HDL Cholesterol Urine WBC (Auto) Vancomycin Trough Coronavirus (PCR) Crossmatch 07/16/19 07/16/19 07/17/19 16:19 17:45 00:16 WBC RBC Hgb Hct MCV MCH MCHC RDW Plt Count Lymph % (Auto) Miner % (Auto) Lymph # Miner # Baso # Seg Neutrophils % Seg Neuts % (Manual) Lymphocytes % (Manual) Monocytes % (Manual) Basophils % (Manual) Nucleated RBC % Seg Neutrophils # Seg Neutrophils # Man Lymphocytes # (Manual) Monocytes # (Manual) Eosinophils # (Manual) Basophils # (Manual) PT INR D-Dimer ABG pH ABG pO2 ABG HCO3 ABG O2 Saturation ABG Base Excess ABG Hemoglobin Oxyhemoglobin Sodium Potassium 5.1 H Chloride Carbon Dioxide 20 L BUN 72 H Creatinine 1.7 H Glucose 128 H POC Glucose 181 H 164 H Lactic Acid Calcium Magnesium Iron TIBC Ferritin AST ALT Lactate Dehydrogenase Troponin T C-Reactive Protein Total Protein Albumin Prealbumin Cholesterol LDL Cholesterol Direct HDL Cholesterol Urine WBC (Auto) Vancomycin Trough Coronavirus (PCR) Crossmatch 07/17/19 07/17/19 07/17/19 04:20 04:39 04:39 WBC 16.1 H RBC 2.92 L Hgb 8.0 L Hct 25.5 L MCV MCH MCHC 31 L RDW 19.7 H Plt Count 564 H Lymph % (Auto) 3.6 L Miner % (Auto) 7.4 H Lymph # 0.6 L Miner # 1.2 H Baso # Seg Neutrophils % 87.5 H Seg Neuts % (Manual) Lymphocytes % (Manual) Monocytes % (Manual) Basophils % (Manual) Nucleated RBC % Seg Neutrophils # 14.1 H Seg Neutrophils # Man Lymphocytes # (Manual) Monocytes # (Manual) Eosinophils # (Manual) Basophils # (Manual) PT INR D-Dimer ABG pH 7.231 L ABG pO2 95.3 H ABG HCO3 ABG O2 Saturation ABG Base Excess -5.0 L ABG Hemoglobin 7.9 L Oxyhemoglobin 94.8 L Sodium Potassium Chloride 107.8 H Carbon Dioxide 21 L BUN 68 H Creatinine Glucose POC Glucose Lactic Acid Calcium Magnesium Iron TIBC Ferritin AST ALT Lactate Dehydrogenase Troponin T C-Reactive Protein Total Protein Albumin Prealbumin Cholesterol LDL Cholesterol Direct HDL Cholesterol Urine WBC (Auto) Vancomycin Trough Coronavirus (PCR) Crossmatch 07/17/19 07/17/19 07/17/19 05:28 12:11 18:48 WBC RBC Hgb Hct MCV MCH MCHC RDW Plt Count Lymph % (Auto) Miner % (Auto) Lymph # Miner # Baso # Seg Neutrophils % Seg Neuts % (Manual) Lymphocytes % (Manual) Monocytes % (Manual) Basophils % (Manual) Nucleated RBC % Seg Neutrophils # Seg Neutrophils # Man Lymphocytes # (Manual) Monocytes # (Manual) Eosinophils # (Manual) Basophils # (Manual) PT INR D-Dimer ABG pH ABG pO2 ABG HCO3 ABG O2 Saturation ABG Base Excess ABG Hemoglobin Oxyhemoglobin Sodium Potassium Chloride Carbon Dioxide BUN Creatinine Glucose POC Glucose 121 H 125 H 174 H Lactic Acid Calcium Magnesium Iron TIBC Ferritin AST ALT Lactate Dehydrogenase Troponin T C-Reactive Protein Total Protein Albumin Prealbumin Cholesterol LDL Cholesterol Direct HDL Cholesterol Urine WBC (Auto) Vancomycin Trough Coronavirus (PCR) Crossmatch 07/17/19 07/17/19 07/18/19 19:55 23:57 02:30 WBC RBC Hgb Hct MCV MCH MCHC RDW Plt Count Lymph % (Auto) Miner % (Auto) Lymph # Miner # Baso # Seg Neutrophils % Seg Neuts % (Manual) Lymphocytes % (Manual) Monocytes % (Manual) Basophils % (Manual) Nucleated RBC % Seg Neutrophils # Seg Neutrophils # Man Lymphocytes # (Manual) Monocytes # (Manual) Eosinophils # (Manual) Basophils # (Manual) PT INR D-Dimer ABG pH 7.344 L 7.294 L ABG pO2 78.5 L 119.2 H ABG HCO3 ABG O2 Saturation ABG Base Excess -3.3 L -2.6 L ABG Hemoglobin 8.6 L 8.1 L Oxyhemoglobin 94.8 L Sodium Potassium Chloride Carbon Dioxide BUN Creatinine Glucose POC Glucose 148 H Lactic Acid Calcium Magnesium Iron TIBC Ferritin AST ALT Lactate Dehydrogenase Troponin T C-Reactive Protein Total Protein Albumin Prealbumin Cholesterol LDL Cholesterol Direct HDL Cholesterol Urine WBC (Auto) Vancomycin Trough Coronavirus (PCR) Crossmatch 07/18/19 07/18/19 07/18/19 04:49 05:22 05:22 WBC 15.9 H RBC 3.00 L Hgb 8.1 L Hct 26.0 L MCV MCH 27 L MCHC 31 L RDW 19.4 H Plt Count 733 H Lymph % (Auto) 6.3 L Miner % (Auto) 7.4 H Lymph # 1.0 L Miner # 1.2 H Baso # 0.2 H Seg Neutrophils % 83.8 H Seg Neuts % (Manual) Lymphocytes % (Manual) Monocytes % (Manual) Basophils % (Manual) Nucleated RBC % Seg Neutrophils # 13.3 H Seg Neutrophils # Man Lymphocytes # (Manual) Monocytes # (Manual) Eosinophils # (Manual) Basophils # (Manual) PT INR D-Dimer ABG pH ABG pO2 ABG HCO3 ABG O2 Saturation ABG Base Excess ABG Hemoglobin Oxyhemoglobin Sodium Potassium Chloride 110.6 H Carbon Dioxide BUN 61 H Creatinine Glucose 109 H POC Glucose 116 H Lactic Acid Calcium Magnesium Iron TIBC Ferritin AST ALT Lactate Dehydrogenase Troponin T C-Reactive Protein Total Protein Albumin Prealbumin Cholesterol LDL Cholesterol Direct HDL Cholesterol Urine WBC (Auto) Vancomycin Trough Coronavirus (PCR) Crossmatch 07/18/19 07/18/19 07/18/19 12:23 18:06 22:20 WBC RBC Hgb Hct MCV MCH MCHC RDW Plt Count Lymph % (Auto) Miner % (Auto) Lymph # Miner # Baso # Seg Neutrophils % Seg Neuts % (Manual) Lymphocytes % (Manual) Monocytes % (Manual) Basophils % (Manual) Nucleated RBC % Seg Neutrophils # Seg Neutrophils # Man Lymphocytes # (Manual) Monocytes # (Manual) Eosinophils # (Manual) Basophils # (Manual) PT INR D-Dimer ABG pH 7.338 L ABG pO2 135.1 H ABG HCO3 ABG O2 Saturation ABG Base Excess ABG Hemoglobin 9.2 L Oxyhemoglobin Sodium Potassium Chloride Carbon Dioxide BUN Creatinine Glucose POC Glucose 114 H 113 H Lactic Acid Calcium Magnesium Iron TIBC Ferritin AST ALT Lactate Dehydrogenase Troponin T C-Reactive Protein Total Protein Albumin Prealbumin Cholesterol LDL Cholesterol Direct HDL Cholesterol Urine WBC (Auto) Vancomycin Trough Coronavirus (PCR) Crossmatch 07/18/19 07/19/19 07/19/19 23:33 03:45 05:18 WBC RBC Hgb Hct MCV MCH MCHC RDW Plt Count Lymph % (Auto) Miner % (Auto) Lymph # Miner # Baso # Seg Neutrophils % Seg Neuts % (Manual) Lymphocytes % (Manual) Monocytes % (Manual) Basophils % (Manual) Nucleated RBC % Seg Neutrophils # Seg Neutrophils # Man Lymphocytes # (Manual) Monocytes # (Manual) Eosinophils # (Manual) Basophils # (Manual) PT INR D-Dimer ABG pH 7.342 L ABG pO2 95.0 H ABG HCO3 ABG O2 Saturation ABG Base Excess ABG Hemoglobin 8.5 L Oxyhemoglobin Sodium Potassium Chloride Carbon Dioxide BUN Creatinine Glucose POC Glucose 125 H 111 H Lactic Acid Calcium Magnesium Iron TIBC Ferritin AST ALT Lactate Dehydrogenase Troponin T C-Reactive Protein Total Protein Albumin Prealbumin Cholesterol LDL Cholesterol Direct HDL Cholesterol Urine WBC (Auto) Vancomycin Trough Coronavirus (PCR) Crossmatch 07/19/19 07/19/19 07/19/19 08:45 08:45 11:47 WBC 15.9 H RBC 3.31 L Hgb 9.1 L Hct 28.4 L MCV MCH 27 L MCHC RDW 19.1 H Plt Count 858 H Lymph % (Auto) 4.9 L Miner % (Auto) 8.1 H Lymph # 0.8 L Miner # 1.3 H Baso # Seg Neutrophils % 85.5 H Seg Neuts % (Manual) Lymphocytes % (Manual) Monocytes % (Manual) Basophils % (Manual) Nucleated RBC % Seg Neutrophils # 13.6 H Seg Neutrophils # Man Lymphocytes # (Manual) Monocytes # (Manual) Eosinophils # (Manual) Basophils # (Manual) PT INR D-Dimer ABG pH ABG pO2 ABG HCO3 ABG O2 Saturation ABG Base Excess ABG Hemoglobin Oxyhemoglobin Sodium Potassium Chloride 111.6 H Carbon Dioxide BUN 50 H Creatinine 0.7 L Glucose 118 H POC Glucose 114 H Lactic Acid Calcium Magnesium Iron TIBC Ferritin AST ALT Lactate Dehydrogenase Troponin T C-Reactive Protein Total Protein Albumin Prealbumin Cholesterol LDL Cholesterol Direct HDL Cholesterol Urine WBC (Auto) Vancomycin Trough Coronavirus (PCR) Crossmatch 07/19/19 07/19/19 07/20/19 18:25 23:44 04:39 WBC RBC Hgb Hct MCV MCH MCHC RDW Plt Count Lymph % (Auto) Miner % (Auto) Lymph # Miner # Baso # Seg Neutrophils % Seg Neuts % (Manual) Lymphocytes % (Manual) Monocytes % (Manual) Basophils % (Manual) Nucleated RBC % Seg Neutrophils # Seg Neutrophils # Man Lymphocytes # (Manual) Monocytes # (Manual) Eosinophils # (Manual) Basophils # (Manual) PT INR D-Dimer ABG pH ABG pO2 ABG HCO3 ABG O2 Saturation ABG Base Excess ABG Hemoglobin Oxyhemoglobin Sodium Potassium Chloride 110.3 H Carbon Dioxide BUN 44 H Creatinine 0.6 L Glucose 120 H POC Glucose 115 H 117 H Lactic Acid Calcium Magnesium Iron TIBC Ferritin AST ALT Lactate Dehydrogenase Troponin T C-Reactive Protein Total Protein Albumin Prealbumin Cholesterol LDL Cholesterol Direct HDL Cholesterol Urine WBC (Auto) Vancomycin Trough Coronavirus (PCR) Crossmatch 07/20/19 07/21/19 07/21/19 05:30 11:59 17:40 WBC RBC Hgb Hct MCV MCH MCHC RDW Plt Count Lymph % (Auto) Miner % (Auto) Lymph # Miner # Baso # Seg Neutrophils % Seg Neuts % (Manual) Lymphocytes % (Manual) Monocytes % (Manual) Basophils % (Manual) Nucleated RBC % Seg Neutrophils # Seg Neutrophils # Man Lymphocytes # (Manual) Monocytes # (Manual) Eosinophils # (Manual) Basophils # (Manual) PT INR D-Dimer ABG pH ABG pO2 ABG HCO3 ABG O2 Saturation ABG Base Excess ABG Hemoglobin Oxyhemoglobin Sodium Potassium Chloride Carbon Dioxide BUN Creatinine Glucose POC Glucose 131 H 122 H 125 H Lactic Acid Calcium Magnesium Iron TIBC Ferritin AST ALT Lactate Dehydrogenase Troponin T C-Reactive Protein Total Protein Albumin Prealbumin Cholesterol LDL Cholesterol Direct HDL Cholesterol Urine WBC (Auto) Vancomycin Trough Coronavirus (PCR) Crossmatch 07/22/19 07/22/19 07/22/19 05:38 05:38 12:29 WBC 12.6 H RBC 3.19 L Hgb 8.9 L Hct 27.5 L MCV MCH MCHC RDW 18.9 H Plt Count 1101 H* Lymph % (Auto) Miner % (Auto) 12.2 H Lymph # Miner # 1.5 H Baso # Seg Neutrophils % 72.8 H Seg Neuts % (Manual) 76.0 H Lymphocytes % (Manual) 7.0 L Monocytes % (Manual) 14.0 H Basophils % (Manual) Nucleated RBC % 1.0 H Seg Neutrophils # 9.2 H Seg Neutrophils # Man 9.6 H Lymphocytes # (Manual) 0.9 L Monocytes # (Manual) 1.8 H Eosinophils # (Manual) Basophils # (Manual) PT INR D-Dimer ABG pH ABG pO2 ABG HCO3 ABG O2 Saturation ABG Base Excess ABG Hemoglobin Oxyhemoglobin Sodium Potassium 3.4 L Chloride Carbon Dioxide BUN 29 H Creatinine 0.5 L Glucose POC Glucose 116 H Lactic Acid Calcium Magnesium Iron TIBC Ferritin AST ALT Lactate Dehydrogenase Troponin T C-Reactive Protein Total Protein Albumin Prealbumin Cholesterol LDL Cholesterol Direct HDL Cholesterol Urine WBC (Auto) Vancomycin Trough Coronavirus (PCR) Crossmatch 07/22/19 07/22/19 07/23/19 18:20 23:51 04:52 WBC RBC Hgb Hct MCV MCH MCHC RDW Plt Count Lymph % (Auto) Miner % (Auto) Lymph # Miner # Baso # Seg Neutrophils % Seg Neuts % (Manual) Lymphocytes % (Manual) Monocytes % (Manual) Basophils % (Manual) Nucleated RBC % Seg Neutrophils # Seg Neutrophils # Man Lymphocytes # (Manual) Monocytes # (Manual) Eosinophils # (Manual) Basophils # (Manual) PT INR D-Dimer ABG pH ABG pO2 ABG HCO3 ABG O2 Saturation ABG Base Excess ABG Hemoglobin Oxyhemoglobin Sodium Potassium Chloride Carbon Dioxide BUN 24 H Creatinine 0.4 L Glucose POC Glucose 107 H 110 H Lactic Acid Calcium Magnesium Iron TIBC Ferritin AST ALT Lactate Dehydrogenase Troponin T C-Reactive Protein Total Protein Albumin Prealbumin Cholesterol LDL Cholesterol Direct HDL Cholesterol Urine WBC (Auto) Vancomycin Trough Coronavirus (PCR) Crossmatch 07/23/19 07/23/19 07/24/19 06:00 23:15 04:40 WBC RBC Hgb Hct MCV MCH MCHC RDW Plt Count Lymph % (Auto) Miner % (Auto) Lymph # Miner # Baso # Seg Neutrophils % Seg Neuts % (Manual) Lymphocytes % (Manual) Monocytes % (Manual) Basophils % (Manual) Nucleated RBC % Seg Neutrophils # Seg Neutrophils # Man Lymphocytes # (Manual) Monocytes # (Manual) Eosinophils # (Manual) Basophils # (Manual) PT INR D-Dimer ABG pH ABG pO2 73.5 L ABG HCO3 27.0 H 28.5 H ABG O2 Saturation 94.5 L ABG Base Excess ABG Hemoglobin 9.4 L 8.9 L Oxyhemoglobin 94.0 L 92.7 L Sodium Potassium Chloride Carbon Dioxide BUN Creatinine Glucose POC Glucose 117 H Lactic Acid Calcium Magnesium Iron TIBC Ferritin AST ALT Lactate Dehydrogenase Troponin T C-Reactive Protein Total Protein Albumin Prealbumin Cholesterol LDL Cholesterol Direct HDL Cholesterol Urine WBC (Auto) Vancomycin Trough Coronavirus (PCR) Crossmatch 07/24/19 07/24/19 07/25/19 05:25 12:06 00:16 WBC RBC Hgb Hct MCV MCH MCHC RDW Plt Count Lymph % (Auto) Miner % (Auto) Lymph # Miner # Baso # Seg Neutrophils % Seg Neuts % (Manual) Lymphocytes % (Manual) Monocytes % (Manual) Basophils % (Manual) Nucleated RBC % Seg Neutrophils # Seg Neutrophils # Man Lymphocytes # (Manual) Monocytes # (Manual) Eosinophils # (Manual) Basophils # (Manual) PT INR D-Dimer ABG pH ABG pO2 ABG HCO3 ABG O2 Saturation ABG Base Excess ABG Hemoglobin Oxyhemoglobin Sodium Potassium Chloride Carbon Dioxide BUN Creatinine Glucose POC Glucose 114 H 108 H 106 H Lactic Acid Calcium Magnesium Iron TIBC Ferritin AST ALT Lactate Dehydrogenase Troponin T C-Reactive Protein Total Protein Albumin Prealbumin Cholesterol LDL Cholesterol Direct HDL Cholesterol Urine WBC (Auto) Vancomycin Trough Coronavirus (PCR) Crossmatch 07/25/19 07/25/19 07/25/19 05:14 05:14 05:17 WBC 17.8 H RBC 3.32 L Hgb 9.2 L Hct 28.6 L MCV MCH MCHC RDW 19.9 H Plt Count 994 H Lymph % (Auto) Miner % (Auto) Lymph # Miner # Baso # Seg Neutrophils % Seg Neuts % (Manual) 82.0 H Lymphocytes % (Manual) 5.0 L Monocytes % (Manual) Basophils % (Manual) Nucleated RBC % Seg Neutrophils # Seg Neutrophils # Man 14.6 H Lymphocytes # (Manual) 0.9 L Monocytes # (Manual) 1.2 H Eosinophils # (Manual) Basophils # (Manual) PT INR D-Dimer ABG pH ABG pO2 ABG HCO3 ABG O2 Saturation ABG Base Excess ABG Hemoglobin Oxyhemoglobin Sodium Potassium Chloride Carbon Dioxide BUN Creatinine 0.4 L Glucose 110 H POC Glucose 107 H Lactic Acid Calcium Magnesium Iron TIBC Ferritin AST ALT Lactate Dehydrogenase Troponin T C-Reactive Protein Total Protein Albumin Prealbumin Cholesterol LDL Cholesterol Direct HDL Cholesterol Urine WBC (Auto) Vancomycin Trough Coronavirus (PCR) Crossmatch 07/25/19 07/25/19 07/26/19 11:55 23:49 06:01 WBC RBC Hgb Hct MCV MCH MCHC RDW Plt Count Lymph % (Auto) Miner % (Auto) Lymph # Miner # Baso # Seg Neutrophils % Seg Neuts % (Manual) Lymphocytes % (Manual) Monocytes % (Manual) Basophils % (Manual) Nucleated RBC % Seg Neutrophils # Seg Neutrophils # Man Lymphocytes # (Manual) Monocytes # (Manual) Eosinophils # (Manual) Basophils # (Manual) PT INR D-Dimer ABG pH ABG pO2 ABG HCO3 ABG O2 Saturation ABG Base Excess ABG Hemoglobin Oxyhemoglobin Sodium Potassium Chloride Carbon Dioxide BUN Creatinine Glucose POC Glucose 123 H 118 H 106 H Lactic Acid Calcium Magnesium Iron TIBC Ferritin AST ALT Lactate Dehydrogenase Troponin T C-Reactive Protein Total Protein Albumin Prealbumin Cholesterol LDL Cholesterol Direct HDL Cholesterol Urine WBC (Auto) Vancomycin Trough Coronavirus (PCR) Crossmatch 07/26/19 07/27/19 07/27/19 17:02 00:28 05:16 WBC RBC Hgb Hct MCV MCH MCHC RDW Plt Count Lymph % (Auto) Miner % (Auto) Lymph # Miner # Baso # Seg Neutrophils % Seg Neuts % (Manual) Lymphocytes % (Manual) Monocytes % (Manual) Basophils % (Manual) Nucleated RBC % Seg Neutrophils # Seg Neutrophils # Man Lymphocytes # (Manual) Monocytes # (Manual) Eosinophils # (Manual) Basophils # (Manual) PT INR D-Dimer ABG pH ABG pO2 63.4 L ABG HCO3 31.3 H ABG O2 Saturation 92.7 L ABG Base Excess 6.3 H ABG Hemoglobin 7.6 L Oxyhemoglobin 90.9 L Sodium Potassium Chloride Carbon Dioxide BUN Creatinine Glucose POC Glucose 116 H 158 H Lactic Acid Calcium Magnesium Iron TIBC Ferritin AST ALT Lactate Dehydrogenase Troponin T C-Reactive Protein Total Protein Albumin Prealbumin Cholesterol LDL Cholesterol Direct HDL Cholesterol Urine WBC (Auto) Vancomycin Trough Coronavirus (PCR) Crossmatch 07/28/19 07/28/19 07/28/19 10:13 10:13 23:54 WBC 18.5 H RBC 3.20 L Hgb 8.8 L Hct 26.8 L MCV MCH 27 L MCHC RDW 19.9 H Plt Count 730 H Lymph % (Auto) Miner % (Auto) Lymph # Miner # Baso # Seg Neutrophils % Seg Neuts % (Manual) Lymphocytes % (Manual) Monocytes % (Manual) Basophils % (Manual) Nucleated RBC % Seg Neutrophils # Seg Neutrophils # Man Lymphocytes # (Manual) Monocytes # (Manual) Eosinophils # (Manual) Basophils # (Manual) PT INR D-Dimer ABG pH ABG pO2 ABG HCO3 ABG O2 Saturation ABG Base Excess ABG Hemoglobin Oxyhemoglobin Sodium Potassium 3.2 L Chloride 97.5 L Carbon Dioxide 31 H BUN Creatinine 0.5 L Glucose POC Glucose 120 H Lactic Acid Calcium Magnesium Iron TIBC Ferritin AST ALT Lactate Dehydrogenase Troponin T C-Reactive Protein Total Protein Albumin Prealbumin Cholesterol LDL Cholesterol Direct HDL Cholesterol Urine WBC (Auto) Vancomycin Trough Coronavirus (PCR) Crossmatch 07/29/19 07/29/19 07/29/19 11:57 17:43 Unknown WBC RBC Hgb Hct MCV MCH MCHC RDW Plt Count Lymph % (Auto) Miner % (Auto) Lymph # Miner # Baso # Seg Neutrophils % Seg Neuts % (Manual) Lymphocytes % (Manual) Monocytes % (Manual) Basophils % (Manual) Nucleated RBC % Seg Neutrophils # Seg Neutrophils # Man Lymphocytes # (Manual) Monocytes # (Manual) Eosinophils # (Manual) Basophils # (Manual) PT INR D-Dimer ABG pH ABG pO2 ABG HCO3 ABG O2 Saturation ABG Base Excess ABG Hemoglobin Oxyhemoglobin Sodium Potassium Chloride Carbon Dioxide BUN Creatinine Glucose POC Glucose 112 H Lactic Acid Calcium Magnesium Iron TIBC Ferritin AST ALT Lactate Dehydrogenase Troponin T C-Reactive Protein Total Protein Albumin Prealbumin Cholesterol LDL Cholesterol Direct HDL Cholesterol Urine WBC (Auto) 63.0 H Vancomycin Trough Coronavirus (PCR) Positive A Crossmatch 07/30/19 07/30/19 07/30/19 00:20 04:35 04:35 WBC 24.3 H RBC 3.12 L Hgb 8.5 L Hct 26.3 L MCV MCH 27 L MCHC RDW 20.2 H Plt Count 550 H Lymph % (Auto) Miner % (Auto) Lymph # Miner # Baso # Seg Neutrophils % Seg Neuts % (Manual) Lymphocytes % (Manual) Monocytes % (Manual) Basophils % (Manual) Nucleated RBC % Seg Neutrophils # Seg Neutrophils # Man Lymphocytes # (Manual) Monocytes # (Manual) Eosinophils # (Manual) Basophils # (Manual) PT INR D-Dimer ABG pH ABG pO2 ABG HCO3 ABG O2 Saturation ABG Base Excess ABG Hemoglobin Oxyhemoglobin Sodium Potassium 3.0 L Chloride 96.3 L Carbon Dioxide 32 H BUN Creatinine 0.5 L Glucose POC Glucose 106 H Lactic Acid Calcium Magnesium Iron TIBC Ferritin AST ALT Lactate Dehydrogenase Troponin T C-Reactive Protein Total Protein Albumin Prealbumin Cholesterol LDL Cholesterol Direct HDL Cholesterol Urine WBC (Auto) Vancomycin Trough Coronavirus (PCR) Crossmatch 07/31/19 07/31/19 07/31/19 04:42 04:42 11:33 WBC 23.8 H RBC 3.10 L Hgb 8.4 L Hct 26.1 L MCV MCH 27 L MCHC RDW 19.6 H Plt Count 561 H Lymph % (Auto) Miner % (Auto) Lymph # Miner # Baso # Seg Neutrophils % Seg Neuts % (Manual) Lymphocytes % (Manual) Monocytes % (Manual) Basophils % (Manual) Nucleated RBC % Seg Neutrophils # Seg Neutrophils # Man Lymphocytes # (Manual) Monocytes # (Manual) Eosinophils # (Manual) Basophils # (Manual) PT INR D-Dimer ABG pH ABG pO2 ABG HCO3 ABG O2 Saturation ABG Base Excess ABG Hemoglobin Oxyhemoglobin Sodium 135 L Potassium Chloride 93.9 L Carbon Dioxide 32 H BUN Creatinine 0.4 L Glucose POC Glucose 116 H Lactic Acid Calcium Magnesium Iron TIBC Ferritin AST ALT Lactate Dehydrogenase Troponin T C-Reactive Protein Total Protein Albumin 1.6 L Prealbumin 0.037 L Cholesterol LDL Cholesterol Direct HDL Cholesterol Urine WBC (Auto) Vancomycin Trough Coronavirus (PCR) Crossmatch 07/31/19 08/01/19 08/01/19 23:33 04:57 04:57 WBC 26.7 H RBC 3.12 L Hgb 8.5 L Hct 26.3 L MCV MCH 27 L MCHC RDW 19.2 H Plt Count 602 H Lymph % (Auto) Miner % (Auto) Lymph # Miner # Baso # Seg Neutrophils % Seg Neuts % (Manual) 93.0 H Lymphocytes % (Manual) 2.0 L Monocytes % (Manual) Basophils % (Manual) Nucleated RBC % Seg Neutrophils # Seg Neutrophils # Man 24.8 H Lymphocytes # (Manual) 0.5 L Monocytes # (Manual) 1.1 H Eosinophils # (Manual) Basophils # (Manual) PT INR D-Dimer ABG pH ABG pO2 ABG HCO3 ABG O2 Saturation ABG Base Excess ABG Hemoglobin Oxyhemoglobin Sodium 132 L Potassium Chloride 93.8 L Carbon Dioxide 31 H BUN Creatinine 0.3 L Glucose POC Glucose 148 H Lactic Acid Calcium 8.1 L Magnesium Iron TIBC Ferritin AST ALT Lactate Dehydrogenase Troponin T C-Reactive Protein Total Protein Albumin Prealbumin Cholesterol LDL Cholesterol Direct HDL Cholesterol Urine WBC (Auto) Vancomycin Trough Coronavirus (PCR) Crossmatch 08/01/19 08/02/19 08/02/19 12:16 00:22 05:24 WBC RBC Hgb Hct MCV MCH MCHC RDW Plt Count Lymph % (Auto) Miner % (Auto) Lymph # Miner # Baso # Seg Neutrophils % Seg Neuts % (Manual) Lymphocytes % (Manual) Monocytes % (Manual) Basophils % (Manual) Nucleated RBC % Seg Neutrophils # Seg Neutrophils # Man Lymphocytes # (Manual) Monocytes # (Manual) Eosinophils # (Manual) Basophils # (Manual) PT INR D-Dimer ABG pH ABG pO2 ABG HCO3 ABG O2 Saturation ABG Base Excess ABG Hemoglobin Oxyhemoglobin Sodium Potassium Chloride Carbon Dioxide BUN Creatinine Glucose POC Glucose 120 H 119 H 113 H Lactic Acid Calcium Magnesium Iron TIBC Ferritin AST ALT Lactate Dehydrogenase Troponin T C-Reactive Protein Total Protein Albumin Prealbumin Cholesterol LDL Cholesterol Direct HDL Cholesterol Urine WBC (Auto) Vancomycin Trough Coronavirus (PCR) Crossmatch 08/03/19 08/03/19 08/03/19 05:20 12:01 23:48 WBC RBC Hgb Hct MCV MCH MCHC RDW Plt Count Lymph % (Auto) Miner % (Auto) Lymph # Miner # Baso # Seg Neutrophils % Seg Neuts % (Manual) Lymphocytes % (Manual) Monocytes % (Manual) Basophils % (Manual) Nucleated RBC % Seg Neutrophils # Seg Neutrophils # Man Lymphocytes # (Manual) Monocytes # (Manual) Eosinophils # (Manual) Basophils # (Manual) PT INR D-Dimer ABG pH ABG pO2 ABG HCO3 ABG O2 Saturation ABG Base Excess ABG Hemoglobin Oxyhemoglobin Sodium Potassium Chloride Carbon Dioxide BUN Creatinine Glucose POC Glucose 118 H 106 H 120 H Lactic Acid Calcium Magnesium Iron TIBC Ferritin AST ALT Lactate Dehydrogenase Troponin T C-Reactive Protein Total Protein Albumin Prealbumin Cholesterol LDL Cholesterol Direct HDL Cholesterol Urine WBC (Auto) Vancomycin Trough Coronavirus (PCR) Crossmatch 08/04/19 08/04/19 08/04/19 05:38 05:38 06:29 WBC 26.1 H RBC 2.77 L Hgb 7.5 L Hct 23.2 L MCV MCH 27 L MCHC RDW 19.2 H Plt Count 648 H Lymph % (Auto) Miner % (Auto) Lymph # Miner # Baso # Seg Neutrophils % Seg Neuts % (Manual) 90.5 H Lymphocytes % (Manual) 3.5 L Monocytes % (Manual) Basophils % (Manual) Nucleated RBC % Seg Neutrophils # Seg Neutrophils # Man 23.6 H Lymphocytes # (Manual) 0.9 L Monocytes # (Manual) 1.2 H Eosinophils # (Manual) Basophils # (Manual) PT INR D-Dimer ABG pH ABG pO2 ABG HCO3 ABG O2 Saturation ABG Base Excess ABG Hemoglobin Oxyhemoglobin Sodium 132 L Potassium 3.4 L D Chloride 92.7 L Carbon Dioxide 33 H BUN Creatinine 0.2 L Glucose POC Glucose 108 H Lactic Acid Calcium 8.1 L Magnesium Iron TIBC Ferritin AST ALT Lactate Dehydrogenase Troponin T C-Reactive Protein Total Protein Albumin Prealbumin Cholesterol LDL Cholesterol Direct HDL Cholesterol Urine WBC (Auto) Vancomycin Trough Coronavirus (PCR) Crossmatch 08/04/19 08/05/19 08/05/19 12:30 04:58 04:58 WBC 21.0 H RBC 2.63 L Hgb 7.2 L Hct 21.9 L MCV 83 L MCH 27 L MCHC RDW 18.9 H Plt Count 691 H Lymph % (Auto) Miner % (Auto) Lymph # Miner # Baso # Seg Neutrophils % Seg Neuts % (Manual) 86.0 H Lymphocytes % (Manual) 3.0 L Monocytes % (Manual) 10.0 H Basophils % (Manual) Nucleated RBC % Seg Neutrophils # Seg Neutrophils # Man 18.1 H Lymphocytes # (Manual) 0.6 L Monocytes # (Manual) 2.1 H Eosinophils # (Manual) Basophils # (Manual) PT INR D-Dimer ABG pH ABG pO2 ABG HCO3 ABG O2 Saturation ABG Base Excess ABG Hemoglobin Oxyhemoglobin Sodium 134 L Potassium 3.2 L Chloride 93.2 L Carbon Dioxide 34 H BUN 8 L Creatinine 0.3 L Glucose POC Glucose 138 H Lactic Acid Calcium 8.1 L Magnesium Iron TIBC Ferritin AST ALT Lactate Dehydrogenase Troponin T C-Reactive Protein Total Protein Albumin Prealbumin Cholesterol LDL Cholesterol Direct HDL Cholesterol Urine WBC (Auto) Vancomycin Trough Coronavirus (PCR) Crossmatch 08/05/19 08/05/19 08/05/19 11:53 17:57 23:58 WBC RBC Hgb Hct MCV MCH MCHC RDW Plt Count Lymph % (Auto) Miner % (Auto) Lymph # Miner # Baso # Seg Neutrophils % Seg Neuts % (Manual) Lymphocytes % (Manual) Monocytes % (Manual) Basophils % (Manual) Nucleated RBC % Seg Neutrophils # Seg Neutrophils # Man Lymphocytes # (Manual) Monocytes # (Manual) Eosinophils # (Manual) Basophils # (Manual) PT INR D-Dimer ABG pH ABG pO2 ABG HCO3 ABG O2 Saturation ABG Base Excess ABG Hemoglobin Oxyhemoglobin Sodium Potassium Chloride Carbon Dioxide BUN Creatinine Glucose POC Glucose 106 H 111 H 116 H Lactic Acid Calcium Magnesium Iron TIBC Ferritin AST ALT Lactate Dehydrogenase Troponin T C-Reactive Protein Total Protein Albumin Prealbumin Cholesterol LDL Cholesterol Direct HDL Cholesterol Urine WBC (Auto) Vancomycin Trough Coronavirus (PCR) Crossmatch 08/06/19 08/06/19 08/06/19 04:11 04:11 06:04 WBC 20.8 H RBC 2.80 L Hgb 7.6 L Hct 23.5 L MCV MCH 27 L MCHC RDW 19.0 H Plt Count 723 H Lymph % (Auto) Miner % (Auto) Lymph # Miner # Baso # Seg Neutrophils % Seg Neuts % (Manual) 88.0 H Lymphocytes % (Manual) 3.0 L Monocytes % (Manual) Basophils % (Manual) Nucleated RBC % Seg Neutrophils # Seg Neutrophils # Man 18.3 H Lymphocytes # (Manual) 0.6 L Monocytes # (Manual) Eosinophils # (Manual) Basophils # (Manual) 0.2 H PT INR D-Dimer ABG pH ABG pO2 ABG HCO3 ABG O2 Saturation ABG Base Excess ABG Hemoglobin Oxyhemoglobin Sodium Potassium 3.4 L Chloride 95.2 L Carbon Dioxide 32 H BUN Creatinine 0.3 L Glucose POC Glucose 108 H Lactic Acid Calcium 8.2 L Magnesium Iron TIBC Ferritin AST ALT Lactate Dehydrogenase Troponin T C-Reactive Protein Total Protein Albumin Prealbumin Cholesterol LDL Cholesterol Direct HDL Cholesterol Urine WBC (Auto) Vancomycin Trough Coronavirus (PCR) Crossmatch 08/06/19 08/06/19 08/07/19 12:23 17:13 00:21 WBC RBC Hgb Hct MCV MCH MCHC RDW Plt Count Lymph % (Auto) Miner % (Auto) Lymph # Miner # Baso # Seg Neutrophils % Seg Neuts % (Manual) Lymphocytes % (Manual) Monocytes % (Manual) Basophils % (Manual) Nucleated RBC % Seg Neutrophils # Seg Neutrophils # Man Lymphocytes # (Manual) Monocytes # (Manual) Eosinophils # (Manual) Basophils # (Manual) PT INR D-Dimer ABG pH ABG pO2 ABG HCO3 ABG O2 Saturation ABG Base Excess ABG Hemoglobin Oxyhemoglobin Sodium Potassium Chloride Carbon Dioxide BUN Creatinine Glucose POC Glucose 112 H 132 H 147 H Lactic Acid Calcium Magnesium Iron TIBC Ferritin AST ALT Lactate Dehydrogenase Troponin T C-Reactive Protein Total Protein Albumin Prealbumin Cholesterol LDL Cholesterol Direct HDL Cholesterol Urine WBC (Auto) Vancomycin Trough Coronavirus (PCR) Crossmatch 08/07/19 08/07/19 08/07/19 05:16 05:23 05:23 WBC 30.3 H RBC 2.69 L Hgb 7.1 L Hct 22.2 L MCV 83 L MCH 27 L MCHC RDW 19.1 H Plt Count 650 H Lymph % (Auto) Miner % (Auto) Lymph # Miner # Baso # Seg Neutrophils % Seg Neuts % (Manual) 88.0 H Lymphocytes % (Manual) 5.0 L Monocytes % (Manual) Basophils % (Manual) Nucleated RBC % Seg Neutrophils # Seg Neutrophils # Man 26.7 H Lymphocytes # (Manual) Monocytes # (Manual) 2.1 H Eosinophils # (Manual) Basophils # (Manual) PT INR D-Dimer ABG pH ABG pO2 ABG HCO3 ABG O2 Saturation ABG Base Excess ABG Hemoglobin Oxyhemoglobin Sodium 135 L Potassium 3.4 L Chloride 95.4 L Carbon Dioxide 32 H BUN Creatinine 0.4 L Glucose 120 H POC Glucose 120 H Lactic Acid Calcium 7.7 L Magnesium Iron TIBC Ferritin AST ALT Lactate Dehydrogenase Troponin T C-Reactive Protein Total Protein Albumin Prealbumin Cholesterol LDL Cholesterol Direct HDL Cholesterol Urine WBC (Auto) Vancomycin Trough Coronavirus (PCR) Crossmatch 08/07/19 08/07/19 08/07/19 10:24 10:24 11:10 WBC RBC Hgb Hct MCV MCH MCHC RDW Plt Count Lymph % (Auto) Miner % (Auto) Lymph # Miner # Baso # Seg Neutrophils % Seg Neuts % (Manual) Lymphocytes % (Manual) Monocytes % (Manual) Basophils % (Manual) Nucleated RBC % Seg Neutrophils # Seg Neutrophils # Man Lymphocytes # (Manual) Monocytes # (Manual) Eosinophils # (Manual) Basophils # (Manual) PT INR D-Dimer 1808.06 H ABG pH ABG pO2 73.3 L ABG HCO3 33.9 H ABG O2 Saturation ABG Base Excess 9.0 H ABG Hemoglobin 6.3 L Oxyhemoglobin 94.3 L Sodium Potassium Chloride Carbon Dioxide BUN Creatinine Glucose POC Glucose Lactic Acid Calcium Magnesium Iron TIBC Ferritin AST ALT Lactate Dehydrogenase Troponin T C-Reactive Protein 11.10 H Total Protein Albumin Prealbumin Cholesterol LDL Cholesterol Direct HDL Cholesterol Urine WBC (Auto) Vancomycin Trough Coronavirus (PCR) Crossmatch 08/07/19 08/08/19 08/08/19 12:01 04:41 04:41 WBC 22.1 H RBC 2.82 L Hgb 7.7 L Hct 23.6 L MCV MCH 27 L MCHC RDW 19.1 H Plt Count 722 H Lymph % (Auto) Miner % (Auto) Lymph # Miner # Baso # Seg Neutrophils % Seg Neuts % (Manual) 90.0 H Lymphocytes % (Manual) 3.0 L Monocytes % (Manual) Basophils % (Manual) Nucleated RBC % Seg Neutrophils # Seg Neutrophils # Man 19.9 H Lymphocytes # (Manual) 0.7 L Monocytes # (Manual) 1.3 H Eosinophils # (Manual) Basophils # (Manual) PT INR D-Dimer ABG pH ABG pO2 ABG HCO3 ABG O2 Saturation ABG Base Excess ABG Hemoglobin Oxyhemoglobin Sodium 136 L Potassium Chloride 97.8 L Carbon Dioxide BUN Creatinine 0.3 L Glucose 105 H POC Glucose 130 H Lactic Acid Calcium 7.8 L Magnesium Iron TIBC Ferritin AST ALT Lactate Dehydrogenase Troponin T C-Reactive Protein Total Protein Albumin Prealbumin Cholesterol LDL Cholesterol Direct HDL Cholesterol Urine WBC (Auto) Vancomycin Trough Coronavirus (PCR) Crossmatch 08/08/19 08/08/19 08/09/19 11:46 18:35 00:12 WBC RBC Hgb Hct MCV MCH MCHC RDW Plt Count Lymph % (Auto) Miner % (Auto) Lymph # Miner # Baso # Seg Neutrophils % Seg Neuts % (Manual) Lymphocytes % (Manual) Monocytes % (Manual) Basophils % (Manual) Nucleated RBC % Seg Neutrophils # Seg Neutrophils # Man Lymphocytes # (Manual) Monocytes # (Manual) Eosinophils # (Manual) Basophils # (Manual) PT INR D-Dimer ABG pH ABG pO2 ABG HCO3 ABG O2 Saturation ABG Base Excess ABG Hemoglobin Oxyhemoglobin Sodium Potassium Chloride Carbon Dioxide BUN Creatinine Glucose POC Glucose 117 H 117 H 117 H Lactic Acid Calcium Magnesium Iron TIBC Ferritin AST ALT Lactate Dehydrogenase Troponin T C-Reactive Protein Total Protein Albumin Prealbumin Cholesterol LDL Cholesterol Direct HDL Cholesterol Urine WBC (Auto) Vancomycin Trough Coronavirus (PCR) Crossmatch 08/09/19 08/09/19 08/09/19 05:33 12:22 17:48 WBC RBC Hgb Hct MCV MCH MCHC RDW Plt Count Lymph % (Auto) Miner % (Auto) Lymph # Miner # Baso # Seg Neutrophils % Seg Neuts % (Manual) Lymphocytes % (Manual) Monocytes % (Manual) Basophils % (Manual) Nucleated RBC % Seg Neutrophils # Seg Neutrophils # Man Lymphocytes # (Manual) Monocytes # (Manual) Eosinophils # (Manual) Basophils # (Manual) PT INR D-Dimer ABG pH ABG pO2 ABG HCO3 ABG O2 Saturation ABG Base Excess ABG Hemoglobin Oxyhemoglobin Sodium Potassium Chloride Carbon Dioxide BUN Creatinine Glucose POC Glucose 119 H 133 H 123 H Lactic Acid Calcium Magnesium Iron TIBC Ferritin AST ALT Lactate Dehydrogenase Troponin T C-Reactive Protein Total Protein Albumin Prealbumin Cholesterol LDL Cholesterol Direct HDL Cholesterol Urine WBC (Auto) Vancomycin Trough Coronavirus (PCR) Crossmatch 08/09/19 08/09/19 08/10/19 17:59 18:15 00:02 WBC RBC Hgb 6.7 L Hct 20.4 L MCV MCH MCHC RDW Plt Count Lymph % (Auto) Miner % (Auto) Lymph # Miner # Baso # Seg Neutrophils % Seg Neuts % (Manual) Lymphocytes % (Manual) Monocytes % (Manual) Basophils % (Manual) Nucleated RBC % Seg Neutrophils # Seg Neutrophils # Man Lymphocytes # (Manual) Monocytes # (Manual) Eosinophils # (Manual) Basophils # (Manual) PT INR D-Dimer ABG pH ABG pO2 ABG HCO3 ABG O2 Saturation ABG Base Excess ABG Hemoglobin Oxyhemoglobin Sodium Potassium Chloride Carbon Dioxide BUN Creatinine Glucose POC Glucose 124 H Lactic Acid Calcium Magnesium Iron TIBC Ferritin AST ALT Lactate Dehydrogenase Troponin T C-Reactive Protein Total Protein Albumin Prealbumin Cholesterol LDL Cholesterol Direct HDL Cholesterol Urine WBC (Auto) Vancomycin Trough Coronavirus (PCR) Crossmatch See Detail 08/10/19 08/10/19 08/10/19 05:47 08:00 08:00 WBC 16.9 H RBC 2.94 L Hgb 8.2 L Hct 24.9 L MCV MCH MCHC RDW 17.0 H Plt Count 661 H Lymph % (Auto) Miner % (Auto) Lymph # Miner # Baso # Seg Neutrophils % Seg Neuts % (Manual) Lymphocytes % (Manual) Monocytes % (Manual) Basophils % (Manual) Nucleated RBC % Seg Neutrophils # Seg Neutrophils # Man Lymphocytes # (Manual) Monocytes # (Manual) Eosinophils # (Manual) Basophils # (Manual) PT INR D-Dimer ABG pH ABG pO2 ABG HCO3 ABG O2 Saturation ABG Base Excess ABG Hemoglobin Oxyhemoglobin Sodium Potassium Chloride Carbon Dioxide BUN Creatinine 0.3 L Glucose 116 H POC Glucose 148 H Lactic Acid Calcium 7.7 L Magnesium Iron TIBC Ferritin AST ALT Lactate Dehydrogenase Troponin T C-Reactive Protein Total Protein Albumin Prealbumin Cholesterol LDL Cholesterol Direct HDL Cholesterol Urine WBC (Auto) Vancomycin Trough Coronavirus (PCR) Crossmatch 08/10/19 08/10/19 08/10/19 12:38 18:06 23:56 WBC RBC Hgb Hct MCV MCH MCHC RDW Plt Count Lymph % (Auto) Miner % (Auto) Lymph # Miner # Baso # Seg Neutrophils % Seg Neuts % (Manual) Lymphocytes % (Manual) Monocytes % (Manual) Basophils % (Manual) Nucleated RBC % Seg Neutrophils # Seg Neutrophils # Man Lymphocytes # (Manual) Monocytes # (Manual) Eosinophils # (Manual) Basophils # (Manual) PT INR D-Dimer ABG pH ABG pO2 ABG HCO3 ABG O2 Saturation ABG Base Excess ABG Hemoglobin Oxyhemoglobin Sodium Potassium Chloride Carbon Dioxide BUN Creatinine Glucose POC Glucose 113 H 126 H 115 H Lactic Acid Calcium Magnesium Iron TIBC Ferritin AST ALT Lactate Dehydrogenase Troponin T C-Reactive Protein Total Protein Albumin Prealbumin Cholesterol LDL Cholesterol Direct HDL Cholesterol Urine WBC (Auto) Vancomycin Trough Coronavirus (PCR) Crossmatch 08/10/19 08/11/19 08/12/19 Unknown 18:10 03:30 WBC 14.4 H RBC 2.58 L Hgb 7.4 L Hct 22.1 L MCV MCH MCHC RDW 17.4 H Plt Count 786 H Lymph % (Auto) Miner % (Auto) Lymph # Miner # Baso # Seg Neutrophils % Seg Neuts % (Manual) Lymphocytes % (Manual) Monocytes % (Manual) Basophils % (Manual) Nucleated RBC % Seg Neutrophils # Seg Neutrophils # Man Lymphocytes # (Manual) Monocytes # (Manual) Eosinophils # (Manual) Basophils # (Manual) PT INR D-Dimer ABG pH ABG pO2 ABG HCO3 ABG O2 Saturation ABG Base Excess ABG Hemoglobin Oxyhemoglobin Sodium Potassium Chloride Carbon Dioxide BUN Creatinine Glucose POC Glucose 106 H Lactic Acid Calcium Magnesium Iron TIBC Ferritin AST ALT Lactate Dehydrogenase Troponin T C-Reactive Protein Total Protein Albumin Prealbumin Cholesterol LDL Cholesterol Direct HDL Cholesterol Urine WBC (Auto) Vancomycin Trough Coronavirus (PCR) Positive A Crossmatch 08/12/19 08/12/19 08/13/19 03:30 12:08 05:25 WBC RBC Hgb Hct MCV MCH MCHC RDW Plt Count Lymph % (Auto) Miner % (Auto) Lymph # Miner # Baso # Seg Neutrophils % Seg Neuts % (Manual) Lymphocytes % (Manual) Monocytes % (Manual) Basophils % (Manual) Nucleated RBC % Seg Neutrophils # Seg Neutrophils # Man Lymphocytes # (Manual) Monocytes # (Manual) Eosinophils # (Manual) Basophils # (Manual) PT INR D-Dimer ABG pH ABG pO2 ABG HCO3 ABG O2 Saturation ABG Base Excess ABG Hemoglobin Oxyhemoglobin Sodium Potassium Chloride Carbon Dioxide BUN 7 L Creatinine 0.3 L Glucose 117 H POC Glucose 112 H 126 H Lactic Acid Calcium 7.8 L Magnesium Iron TIBC Ferritin AST ALT Lactate Dehydrogenase Troponin T C-Reactive Protein Total Protein Albumin Prealbumin Cholesterol LDL Cholesterol Direct HDL Cholesterol Urine WBC (Auto) Vancomycin Trough Coronavirus (PCR) Crossmatch 08/13/19 08/13/1920 11:36 17:10 19:06 WBC RBC Hgb Hct MCV MCH MCHC RDW Plt Count Lymph % (Auto) Miner % (Auto) Lymph # Miner # Baso # Seg Neutrophils % Seg Neuts % (Manual) Lymphocytes % (Manual) Monocytes % (Manual) Basophils % (Manual) Nucleated RBC % Seg Neutrophils # Seg Neutrophils # Man Lymphocytes # (Manual) Monocytes # (Manual) Eosinophils # (Manual) Basophils # (Manual) PT INR D-Dimer ABG pH ABG pO2 105.0 H ABG HCO3 28.5 H ABG O2 Saturation ABG Base Excess 3.5 H ABG Hemoglobin 7.8 L Oxyhemoglobin Sodium Potassium Chloride Carbon Dioxide BUN Creatinine Glucose POC Glucose 143 H 107 H Lactic Acid Calcium Magnesium Iron TIBC Ferritin AST ALT Lactate Dehydrogenase Troponin T C-Reactive Protein Total Protein Albumin Prealbumin Cholesterol LDL Cholesterol Direct HDL Cholesterol Urine WBC (Auto) Vancomycin Trough Coronavirus (PCR) Crossmatch 08/13/19 08/14/19 08/14/19 23:23 05:00 05:00 WBC 14.3 H RBC 2.76 L Hgb 7.8 L Hct 23.9 L MCV MCH MCHC RDW 18.7 H Plt Count 896 H Lymph % (Auto) Miner % (Auto) Lymph # Miner # Baso # Seg Neutrophils % Seg Neuts % (Manual) Lymphocytes % (Manual) Monocytes % (Manual) Basophils % (Manual) Nucleated RBC % Seg Neutrophils # Seg Neutrophils # Man Lymphocytes # (Manual) Monocytes # (Manual) Eosinophils # (Manual) Basophils # (Manual) PT INR D-Dimer ABG pH ABG pO2 ABG HCO3 ABG O2 Saturation ABG Base Excess ABG Hemoglobin Oxyhemoglobin Sodium Potassium Chloride Carbon Dioxide BUN 6 L Creatinine 0.3 L Glucose POC Glucose 125 H Lactic Acid Calcium 8.2 L Magnesium Iron TIBC Ferritin AST ALT Lactate Dehydrogenase Troponin T C-Reactive Protein Total Protein Albumin Prealbumin Cholesterol LDL Cholesterol Direct HDL Cholesterol Urine WBC (Auto) Vancomycin Trough Coronavirus (PCR) Crossmatch 08/14/19 08/15/19 08/15/19 05:07 00:25 05:42 WBC RBC Hgb Hct MCV MCH MCHC RDW Plt Count Lymph % (Auto) Miner % (Auto) Lymph # Miner # Baso # Seg Neutrophils % Seg Neuts % (Manual) Lymphocytes % (Manual) Monocytes % (Manual) Basophils % (Manual) Nucleated RBC % Seg Neutrophils # Seg Neutrophils # Man Lymphocytes # (Manual) Monocytes # (Manual) Eosinophils # (Manual) Basophils # (Manual) PT INR D-Dimer ABG pH ABG pO2 ABG HCO3 ABG O2 Saturation ABG Base Excess ABG Hemoglobin Oxyhemoglobin Sodium Potassium Chloride Carbon Dioxide BUN Creatinine Glucose POC Glucose 128 H 117 H 115 H Lactic Acid Calcium Magnesium Iron TIBC Ferritin AST ALT Lactate Dehydrogenase Troponin T C-Reactive Protein Total Protein Albumin Prealbumin Cholesterol LDL Cholesterol Direct HDL Cholesterol Urine WBC (Auto) Vancomycin Trough Coronavirus (PCR) Crossmatch 08/15/19 08/15/19 08/15/19 06:10 06:10 06:10 WBC 11.6 H RBC 2.68 L Hgb 7.7 L Hct 23.3 L MCV MCH MCHC RDW 19.2 H Plt Count 885 H Lymph % (Auto) Miner % (Auto) Lymph # Miner # Baso # Seg Neutrophils % Seg Neuts % (Manual) Lymphocytes % (Manual) Monocytes % (Manual) Basophils % (Manual) Nucleated RBC % Seg Neutrophils # Seg Neutrophils # Man Lymphocytes # (Manual) Monocytes # (Manual) Eosinophils # (Manual) Basophils # (Manual) PT INR D-Dimer ABG pH ABG pO2 ABG HCO3 ABG O2 Saturation ABG Base Excess ABG Hemoglobin Oxyhemoglobin Sodium Potassium Chloride Carbon Dioxide BUN 6 L Creatinine 0.3 L Glucose 107 H POC Glucose Lactic Acid Calcium 8.2 L Magnesium 1.50 L Iron TIBC Ferritin AST ALT Lactate Dehydrogenase Troponin T C-Reactive Protein Total Protein Albumin Prealbumin Cholesterol LDL Cholesterol Direct HDL Cholesterol Urine WBC (Auto) Vancomycin Trough Coronavirus (PCR) Crossmatch 08/15/19 08/16/19 08/16/19 12:12 00:05 05:00 WBC 13.3 H RBC 2.87 L Hgb 8.1 L Hct 24.9 L MCV MCH MCHC RDW 18.7 H Plt Count 962 H Lymph % (Auto) Miner % (Auto) Lymph # Miner # Baso # Seg Neutrophils % Seg Neuts % (Manual) Lymphocytes % (Manual) Monocytes % (Manual) Basophils % (Manual) Nucleated RBC % Seg Neutrophils # Seg Neutrophils # Man Lymphocytes # (Manual) Monocytes # (Manual) Eosinophils # (Manual) Basophils # (Manual) PT INR D-Dimer ABG pH ABG pO2 ABG HCO3 ABG O2 Saturation ABG Base Excess ABG Hemoglobin Oxyhemoglobin Sodium Potassium Chloride Carbon Dioxide BUN Creatinine Glucose POC Glucose 112 H 111 H Lactic Acid Calcium Magnesium Iron TIBC Ferritin AST ALT Lactate Dehydrogenase Troponin T C-Reactive Protein Total Protein Albumin Prealbumin Cholesterol LDL Cholesterol Direct HDL Cholesterol Urine WBC (Auto) Vancomycin Trough Coronavirus (PCR) Crossmatch 08/16/19 08/16/19 08/16/19 05:00 05:00 23:35 WBC RBC Hgb Hct MCV MCH MCHC RDW Plt Count Lymph % (Auto) Miner % (Auto) Lymph # Miner # Baso # Seg Neutrophils % Seg Neuts % (Manual) Lymphocytes % (Manual) Monocytes % (Manual) Basophils % (Manual) Nucleated RBC % Seg Neutrophils # Seg Neutrophils # Man Lymphocytes # (Manual) Monocytes # (Manual) Eosinophils # (Manual) Basophils # (Manual) PT INR D-Dimer ABG pH ABG pO2 ABG HCO3 ABG O2 Saturation ABG Base Excess ABG Hemoglobin Oxyhemoglobin Sodium 135 L Potassium Chloride Carbon Dioxide BUN 6 L Creatinine 0.3 L Glucose POC Glucose 108 H Lactic Acid Calcium 8.2 L Magnesium Iron TIBC Ferritin AST ALT Lactate Dehydrogenase Troponin T C-Reactive Protein 2.70 H Total Protein Albumin 2.1 L Prealbumin Cholesterol LDL Cholesterol Direct HDL Cholesterol Urine WBC (Auto) Vancomycin Trough Coronavirus (PCR) Crossmatch 08/17/19 08/17/19 08/17/19 05:15 20:20 23:42 WBC RBC Hgb Hct MCV MCH MCHC RDW Plt Count Lymph % (Auto) Miner % (Auto) Lymph # Miner # Baso # Seg Neutrophils % Seg Neuts % (Manual) Lymphocytes % (Manual) Monocytes % (Manual) Basophils % (Manual) Nucleated RBC % Seg Neutrophils # Seg Neutrophils # Man Lymphocytes # (Manual) Monocytes # (Manual) Eosinophils # (Manual) Basophils # (Manual) PT INR D-Dimer ABG pH ABG pO2 ABG HCO3 27.8 H ABG O2 Saturation ABG Base Excess ABG Hemoglobin 11.4 L Oxyhemoglobin 94.6 L Sodium Potassium Chloride Carbon Dioxide BUN Creatinine Glucose POC Glucose 138 H 132 H Lactic Acid Calcium Magnesium Iron TIBC Ferritin AST ALT Lactate Dehydrogenase Troponin T C-Reactive Protein Total Protein Albumin Prealbumin Cholesterol LDL Cholesterol Direct HDL Cholesterol Urine WBC (Auto) Vancomycin Trough Coronavirus (PCR) Crossmatch 05/08/18/19 08/18/19 06:00 06:00 12:02 WBC 19.7 H RBC 3.30 L Hgb 9.3 L Hct 28.5 L MCV MCH MCHC RDW 18.9 H Plt Count 923 H Lymph % (Auto) Miner % (Auto) Lymph # Miner # Baso # Seg Neutrophils % Seg Neuts % (Manual) Lymphocytes % (Manual) Monocytes % (Manual) Basophils % (Manual) Nucleated RBC % Seg Neutrophils # Seg Neutrophils # Man Lymphocytes # (Manual) Monocytes # (Manual) Eosinophils # (Manual) Basophils # (Manual) PT INR D-Dimer ABG pH ABG pO2 ABG HCO3 ABG O2 Saturation ABG Base Excess ABG Hemoglobin Oxyhemoglobin Sodium 136 L Potassium Chloride Carbon Dioxide BUN Creatinine 0.4 L Glucose 71 L POC Glucose 123 H Lactic Acid Calcium Magnesium Iron TIBC Ferritin AST ALT Lactate Dehydrogenase Troponin T C-Reactive Protein Total Protein Albumin Prealbumin Cholesterol LDL Cholesterol Direct HDL Cholesterol Urine WBC (Auto) Vancomycin Trough Coronavirus (PCR) Crossmatch 08/18/19 08/18/19 08/19/19 18:23 23:16 04:57 WBC RBC Hgb Hct MCV MCH MCHC RDW Plt Count Lymph % (Auto) Miner % (Auto) Lymph # Miner # Baso # Seg Neutrophils % Seg Neuts % (Manual) Lymphocytes % (Manual) Monocytes % (Manual) Basophils % (Manual) Nucleated RBC % Seg Neutrophils # Seg Neutrophils # Man Lymphocytes # (Manual) Monocytes # (Manual) Eosinophils # (Manual) Basophils # (Manual) PT INR D-Dimer ABG pH ABG pO2 ABG HCO3 ABG O2 Saturation ABG Base Excess ABG Hemoglobin Oxyhemoglobin Sodium Potassium Chloride Carbon Dioxide BUN Creatinine Glucose POC Glucose 140 H 159 H 134 H Lactic Acid Calcium Magnesium Iron TIBC Ferritin AST ALT Lactate Dehydrogenase Troponin T C-Reactive Protein Total Protein Albumin Prealbumin Cholesterol LDL Cholesterol Direct HDL Cholesterol Urine WBC (Auto) Vancomycin Trough Coronavirus (PCR) Crossmatch 08/19/19 08/19/19 08/19/19 07:44 08:17 18:15 WBC 30.5 H RBC 2.87 L Hgb 7.9 L Hct 24.5 L MCV MCH MCHC RDW 18.8 H Plt Count 772 H Lymph % (Auto) Miner % (Auto) Lymph # Miner # Baso # Seg Neutrophils % Seg Neuts % (Manual) 89.0 H Lymphocytes % (Manual) 4.0 L Monocytes % (Manual) Basophils % (Manual) 2.0 H Nucleated RBC % Seg Neutrophils # Seg Neutrophils # Man 27.1 H Lymphocytes # (Manual) Monocytes # (Manual) 0.9 H Eosinophils # (Manual) 0.6 H Basophils # (Manual) 0.6 H PT INR D-Dimer ABG pH ABG pO2 ABG HCO3 ABG O2 Saturation ABG Base Excess ABG Hemoglobin Oxyhemoglobin Sodium 136 L Potassium Chloride Carbon Dioxide BUN Creatinine 0.3 L Glucose POC Glucose 106 H Lactic Acid Calcium 8.2 L Magnesium Iron TIBC Ferritin AST ALT Lactate Dehydrogenase Troponin T C-Reactive Protein Total Protein Albumin Prealbumin Cholesterol LDL Cholesterol Direct HDL Cholesterol Urine WBC (Auto) Vancomycin Trough Coronavirus (PCR) Crossmatch 08/19/19 08/20/19 08/20/19 23:46 06:20 18:34 WBC RBC Hgb Hct MCV MCH MCHC RDW Plt Count Lymph % (Auto) Miner % (Auto) Lymph # Miner # Baso # Seg Neutrophils % Seg Neuts % (Manual) Lymphocytes % (Manual) Monocytes % (Manual) Basophils % (Manual) Nucleated RBC % Seg Neutrophils # Seg Neutrophils # Man Lymphocytes # (Manual) Monocytes # (Manual) Eosinophils # (Manual) Basophils # (Manual) PT INR D-Dimer ABG pH ABG pO2 ABG HCO3 ABG O2 Saturation ABG Base Excess ABG Hemoglobin Oxyhemoglobin Sodium Potassium Chloride Carbon Dioxide BUN Creatinine Glucose POC Glucose 144 H 115 H 125 H Lactic Acid Calcium Magnesium Iron TIBC Ferritin AST ALT Lactate Dehydrogenase Troponin T C-Reactive Protein Total Protein Albumin Prealbumin Cholesterol LDL Cholesterol Direct HDL Cholesterol Urine WBC (Auto) Vancomycin Trough Coronavirus (PCR) Crossmatch 08/20/19 08/20/19 08/21/19 Unknown Unknown 11:56 WBC 18.7 H RBC 2.70 L Hgb 7.6 L Hct 23.1 L MCV MCH MCHC RDW 18.9 H Plt Count 690 H Lymph % (Auto) Miner % (Auto) Lymph # Miner # Baso # Seg Neutrophils % Seg Neuts % (Manual) Lymphocytes % (Manual) Monocytes % (Manual) Basophils % (Manual) Nucleated RBC % Seg Neutrophils # Seg Neutrophils # Man Lymphocytes # (Manual) Monocytes # (Manual) Eosinophils # (Manual) Basophils # (Manual) PT INR D-Dimer ABG pH ABG pO2 ABG HCO3 ABG O2 Saturation ABG Base Excess ABG Hemoglobin Oxyhemoglobin Sodium 134 L Potassium Chloride 97.9 L Carbon Dioxide BUN Creatinine 0.3 L Glucose 115 H POC Glucose 116 H Lactic Acid Calcium 8.2 L Magnesium Iron TIBC Ferritin AST ALT Lactate Dehydrogenase Troponin T C-Reactive Protein Total Protein Albumin Prealbumin Cholesterol LDL Cholesterol Direct HDL Cholesterol Urine WBC (Auto) Vancomycin Trough Coronavirus (PCR) Crossmatch 08/21/19 08/22/19 08/22/19 18:14 00:31 05:53 WBC RBC Hgb Hct MCV MCH MCHC RDW Plt Count Lymph % (Auto) Miner % (Auto) Lymph # Miner # Baso # Seg Neutrophils % Seg Neuts % (Manual) Lymphocytes % (Manual) Monocytes % (Manual) Basophils % (Manual) Nucleated RBC % Seg Neutrophils # Seg Neutrophils # Man Lymphocytes # (Manual) Monocytes # (Manual) Eosinophils # (Manual) Basophils # (Manual) PT INR D-Dimer ABG pH ABG pO2 ABG HCO3 ABG O2 Saturation ABG Base Excess ABG Hemoglobin Oxyhemoglobin Sodium Potassium Chloride Carbon Dioxide BUN Creatinine Glucose POC Glucose 113 H 106 H 109 H Lactic Acid Calcium Magnesium Iron TIBC Ferritin AST ALT Lactate Dehydrogenase Troponin T C-Reactive Protein Total Protein Albumin Prealbumin Cholesterol LDL Cholesterol Direct HDL Cholesterol Urine WBC (Auto) Vancomycin Trough Coronavirus (PCR) Crossmatch 08/22/19 08/23/19 08/23/19 18:35 00:18 06:00 WBC 12.3 H RBC 2.92 L Hgb 8.0 L Hct 24.6 L MCV MCH MCHC RDW 18.5 H Plt Count 661 H Lymph % (Auto) 11.7 L Miner % (Auto) 9.2 H Lymph # Miner # 1.1 H Baso # Seg Neutrophils % 75.6 H Seg Neuts % (Manual) Lymphocytes % (Manual) Monocytes % (Manual) Basophils % (Manual) Nucleated RBC % Seg Neutrophils # 9.3 H Seg Neutrophils # Man Lymphocytes # (Manual) Monocytes # (Manual) Eosinophils # (Manual) Basophils # (Manual) PT INR D-Dimer ABG pH ABG pO2 ABG HCO3 ABG O2 Saturation ABG Base Excess ABG Hemoglobin Oxyhemoglobin Sodium Potassium Chloride Carbon Dioxide BUN Creatinine Glucose POC Glucose 130 H 124 H Lactic Acid Calcium Magnesium Iron TIBC Ferritin AST ALT Lactate Dehydrogenase Troponin T C-Reactive Protein Total Protein Albumin Prealbumin Cholesterol LDL Cholesterol Direct HDL Cholesterol Urine WBC (Auto) Vancomycin Trough Coronavirus (PCR) Crossmatch 08/23/19 08/23/19 08/24/19 06:09 17:46 00:04 WBC RBC Hgb Hct MCV MCH MCHC RDW Plt Count Lymph % (Auto) Miner % (Auto) Lymph # Miner # Baso # Seg Neutrophils % Seg Neuts % (Manual) Lymphocytes % (Manual) Monocytes % (Manual) Basophils % (Manual) Nucleated RBC % Seg Neutrophils # Seg Neutrophils # Man Lymphocytes # (Manual) Monocytes # (Manual) Eosinophils # (Manual) Basophils # (Manual) PT INR D-Dimer ABG pH ABG pO2 ABG HCO3 ABG O2 Saturation ABG Base Excess ABG Hemoglobin Oxyhemoglobin Sodium Potassium Chloride Carbon Dioxide BUN Creatinine Glucose POC Glucose 117 H 125 H 113 H Lactic Acid Calcium Magnesium Iron TIBC Ferritin AST ALT Lactate Dehydrogenase Troponin T C-Reactive Protein Total Protein Albumin Prealbumin Cholesterol LDL Cholesterol Direct HDL Cholesterol Urine WBC (Auto) Vancomycin Trough Coronavirus (PCR) Crossmatch 08/24/19 08/24/19 08/24/19 05:34 12:28 17:32 WBC RBC Hgb Hct MCV MCH MCHC RDW Plt Count Lymph % (Auto) Miner % (Auto) Lymph # Miner # Baso # Seg Neutrophils % Seg Neuts % (Manual) Lymphocytes % (Manual) Monocytes % (Manual) Basophils % (Manual) Nucleated RBC % Seg Neutrophils # Seg Neutrophils # Man Lymphocytes # (Manual) Monocytes # (Manual) Eosinophils # (Manual) Basophils # (Manual) PT INR D-Dimer ABG pH ABG pO2 ABG HCO3 ABG O2 Saturation ABG Base Excess ABG Hemoglobin Oxyhemoglobin Sodium Potassium Chloride Carbon Dioxide BUN Creatinine Glucose POC Glucose 128 H 127 H 116 H Lactic Acid Calcium Magnesium Iron TIBC Ferritin AST ALT Lactate Dehydrogenase Troponin T C-Reactive Protein Total Protein Albumin Prealbumin Cholesterol LDL Cholesterol Direct HDL Cholesterol Urine WBC (Auto) Vancomycin Trough Coronavirus (PCR) Crossmatch 08/24/19 08/25/19 08/25/19 23:41 05:37 12:30 WBC RBC Hgb Hct MCV MCH MCHC RDW Plt Count Lymph % (Auto) Miner % (Auto) Lymph # Miner # Baso # Seg Neutrophils % Seg Neuts % (Manual) Lymphocytes % (Manual) Monocytes % (Manual) Basophils % (Manual) Nucleated RBC % Seg Neutrophils # Seg Neutrophils # Man Lymphocytes # (Manual) Monocytes # (Manual) Eosinophils # (Manual) Basophils # (Manual) PT INR D-Dimer ABG pH ABG pO2 ABG HCO3 ABG O2 Saturation ABG Base Excess ABG Hemoglobin Oxyhemoglobin Sodium Potassium Chloride Carbon Dioxide BUN Creatinine Glucose POC Glucose 107 H 129 H 110 H Lactic Acid Calcium Magnesium Iron TIBC Ferritin AST ALT Lactate Dehydrogenase Troponin T C-Reactive Protein Total Protein Albumin Prealbumin Cholesterol LDL Cholesterol Direct HDL Cholesterol Urine WBC (Auto) Vancomycin Trough Coronavirus (PCR) Crossmatch 08/25/19 08/25/19 08/26/19 17:49 23:55 05:35 WBC RBC Hgb Hct MCV MCH MCHC RDW Plt Count Lymph % (Auto) Miner % (Auto) Lymph # Miner # Baso # Seg Neutrophils % Seg Neuts % (Manual) Lymphocytes % (Manual) Monocytes % (Manual) Basophils % (Manual) Nucleated RBC % Seg Neutrophils # Seg Neutrophils # Man Lymphocytes # (Manual) Monocytes # (Manual) Eosinophils # (Manual) Basophils # (Manual) PT INR D-Dimer ABG pH ABG pO2 ABG HCO3 ABG O2 Saturation ABG Base Excess ABG Hemoglobin Oxyhemoglobin Sodium Potassium Chloride Carbon Dioxide BUN Creatinine Glucose POC Glucose 107 H 137 H 117 H Lactic Acid Calcium Magnesium Iron TIBC Ferritin AST ALT Lactate Dehydrogenase Troponin T C-Reactive Protein Total Protein Albumin Prealbumin Cholesterol LDL Cholesterol Direct HDL Cholesterol Urine WBC (Auto) Vancomycin Trough Coronavirus (PCR) Crossmatch Allied health notes reviewed: nursing
[2019-08-26] MEDS: ACETAMINOPHEN 325 MG/10.15 ML ORAL LIQD UNIT DOSE PO PRN (22:53)
[2019-08-27] MEDS ORDERED: SODIUM CHLORIDE 0.9% 250ML 250 ML IV ONE (01:24)
[2019-08-27] MEDS: INSULIN LISPRO 100 UNIT/ML SUB-Q SCH ×4 (01:38→18:35)
[2019-08-27] MEDS: SODIUM HYPOCHLORITE, DAKIN'S 1/2 STRENGTH (0.25%) 473 ML TOPICAL SOLN TP SCH ×3 (01:39→21:30)
[2019-08-27 08:03] LABS: Basophils # (Auto) 0.1 K/mm3 (0.0-0.1); Basophils % (Auto) 1.2 % (0.0-1.8); Eosinophils # (Auto) 0.3 K/mm3 (0.0-0.4); Eosinophils % (Auto) 2.9 % (0.0-4.3); Hematocrit 26.1 % (35.5-45.6); Hemoglobin 8.3 gm/dl (11.8-15.2); Lymphocytes # (Auto) 1.4 K/mm3 (1.2-5.4); Lymphocytes % (Auto) 11.8 % (13.4-35.0); Mean Corpuscular HGB Conc 32 % (32-34); Mean Corpuscular Volume 83 fl (84-94); Monocytes % (Auto) 8.8 % (0.0-7.3); Platelet Count 743 K/mm3 (140-440); Red Blood Count 3.15 M/mm3 (3.65-5.03); Red Cell Distribution Width 18.6 % (13.2-15.2)
[2019-08-27 08:08] LABS: BUN/Creatinine Ratio 50; Blood Urea Nitrogen 15 mg/dL (9-20); Calcium 8.9 mg/dL (8.4-10.2); Hemolysis Index 4
[2019-08-27] MEDS: GLYCOPYRROLATE 1 MG TAB PO SCH ×3 (08:30→21:27)
[2019-08-27] MEDS: FAMOTIDINE 20 MG TAB PO SCH ×2 (10:06→21:28)
[2019-08-27] MEDS: ASPIRIN 81 MG TAB CHEW PO SCH (10:06)
[2019-08-27] MEDS: ENOXAPARIN 40 MG/0.4 ML INJ SUB-Q SCH (10:06)
[2019-08-27] MEDS: FOLIC ACID 1 MG TAB PO SCH (10:06)
[2019-08-27] MEDS: METOPROLOL TARTRATE 25 MG TAB PO SCH ×2 (10:11→21:31)
[2019-08-27] MEDS: levETIRAcetam 500 MG/5 ML ORAL LIQD FEEDTUBE SCH ×2 (10:50→21:28)
[2019-08-27] MEDS: SCOPOLAMINE TRANSDERMAL PATCH 72 HR TD SCH (10:51)
[2019-08-27] MEDS: fentaNYL 25 MCG/HR PATCH 72HR TD SCH (10:51)
[2019-08-27] MEDS: DOCUSATE SODIUM 100 MG/10 ML ORAL LIQD PO PRN (13:11)
--- NOTE | 2019-08-27 13:42 | Progress Note ---
Assessment and Plan Acute hypoxemic respiratory failure on MVS Severe sepsis with Shock. Bilateral Pneumonia. PUI coronavirus-19 infection. Acute possibly on chronic encephalopathy. Oropharyngeal dysphagia. Anemia. Decubitus ulcers Diabetes type 2. Hypertension. Leukocytosis. Anemia that is microcytic. Elevated serum transaminases. [id number] metabolic acidosis. Lactic acidosis. Severe protein-calorie malnutrition ( has advised us she wants a tracheostomy and continued aggressive care) - tracheostomy placem,ent tentatively for tuesday - meantime will continue daily SBT's; if he shows significant tolerance of SBT's over an extended few day periods a trial of extubation may still be considered especially now he is COVID negative - no new issues otherwise, continue care as below otherwise - repeat COVID-19 negative - prn CXR's and ABG's at this point - surgery evaluation ongoing for tracheostomy placement (await negative COVID test) - continue care as below otherwise - continue fentanyl gtt for pain control / sedation - continue to wean supplemental oxygen for target O2 sat's > 90% acutely - continue daily SAT's and SBT assessment as tolerated - VAP bundle addressed - continue lung protective strategies - continue bronchodilators with pulmonary hygiene per RT - wean per pulmonary driven protocols otherwise - prn Levophed for target MAP > 65 mmHg - continue airborne and contact COVID-19 precautions - COVID-19 test positive - complete anti-infectives and de-escalate per ID recommendations - continue wound care per WCT - sedation prn for target RASS 0 to -1 - accuchecks with glycemic control per SSI (While critically ill target blood glucose of 140-180 mg/dL; avoid hypoglycemia) - to avoid benzodiazepine's, reduce the possibility of delirium - prn analgesia per CPOT score - Maintenance of sleep-wake cycle, avoid delirium - continue enteral nutritional support at goal rate as tolerated - G.I. & VTE prophylaxis - PT/OT/ROM exercises - continue mobility protocols for pressure ulcer prophylaxis - Monitor hemodynamics closely - continue other care per attending / other consultants - discharge planning ongoing concurrently .... Re-evaluate in am & prn CONDITION: CRITICAL PROGNOSIS: GUARDED CODE STATUS: FULL CODE The high probability of a clinically significant, sudden or life-threatening deterioration of the [respiratory & cardiovascular] system(s) required my full and direct attention, intervention and personal management. The aggregate critical care time was [31] minutes without overlap. Time includes spent on; [x] Data Review and interpretation [x] Patient assessment and monitoring of vital signs [x] Documentation [x] Medication orders and management Subjective Date of service: 08/27/19 Principal diagnosis: Bilateral pneumonia, severe sepsis with septic shock, encephalopathy Interval history: Patient is seen today for: Ac hypoxemic Resp failure on MVS; Severe sepsis with Shock; Ivan. Pneumonia; PUI coronavirus-19 infection. Seen and examined at bedside; 24hour events reviewed; nursing and respiratory care staff consulted; no adverse overnight events reported to me; resting in bed; remains on MVS; tolerating PSV well today but AMS is persistent; no new issues otherwise Objective Vital Signs - 12hr 08/27/19 08/27/19 08/27/19 02:01 03:00 04:00 Temperature 97.8 F Pulse Rate 73 93 H 84 Pulse Rate [ 86 From Monitor] Respiratory 16 12 17 Rate Blood Pressure 97/48 117/83 102/51 O2 Sat by Pulse 100 100 100 Oximetry 08/27/19 08/27/19 08/27/19 05:00 05:20 06:00 Temperature Pulse Rate 84 67 83 Pulse Rate [ From Monitor] Respiratory 10 L 16 Rate Blood Pressure 108/58 100/52 92/47 O2 Sat by Pulse 100 100 100 Oximetry 08/27/19 08/27/19 08/27/19 07:00 08:00 09:00 Temperature 98.0 F Pulse Rate 76 79 92 H Pulse Rate [ 79 From Monitor] Respiratory 17 18 17 Rate Blood Pressure 104/51 104/53 109/53 O2 Sat by Pulse 100 100 97 Oximetry 08/27/19 08/27/19 08/27/19 09:55 10:00 10:11 Temperature Pulse Rate 96 H 95 H 66 Pulse Rate [ From Monitor] Respiratory 26 H 23 Rate Blood Pressure 114/56 113/63 109/53 O2 Sat by Pulse 100 100 Oximetry 08/27/19 08/27/19 08/27/19 11:00 12:00 13:00 Temperature Pulse Rate 106 H 94 H 90 Pulse Rate [ From Monitor] Respiratory 15 26 H 25 H Rate Blood Pressure 129/73 119/61 124/64 O2 Sat by Pulse 100 98 100 Oximetry Constitutional: appears uncomfortable, other (eelderly and chronically ill looking AAM, normocep[krystina;ic with mildly increased respiratory effort at rest) Eyes: non-icteric ENT: oropharynx moist, other (ETT 24 cm RUTH) Neck: supple, no lymphadenopathy, no JVD Effort: mildly labored Ascultation: Bilateral: diminished breath sounds, rhonchi Percussion: Bilateral: not dull Cardiovascular: regular rate and rhythm Gastrointestinal: normoactive bowel sounds, soft, non-tender, non-distended, other (+ PEG tube with mild TF leakage) Integumentary: decubitus ulcer (sacral) Extremities: no cyanosis, no edema, pink and warm, pulses normal Neurologic: pupils equal and round, unable to assess Psychiatric: other (Unable to assess re: AMS) CBC and BMP: 08/27/19 07:21 08/27/19 07:21 ABG, PT/INR, D-dimer: ABG ABG pH 7.405 pH Units (7.350-7.450) 08/17/19 20:20 ABG pCO2 45.3 mm Hg 08/17/19 20:20 ABG pO2 84.2 mm Hg (80.0-90.0) 08/17/19 20:20 ABG O2 Saturation 96.9 % (95.0-99.0) 08/17/19 20:20 PT/INR, D-dimer PT 16.0 Sec. (12.2-14.9) H 07/03/19 22:20 INR 1.26 (0.87-1.13) H 07/03/19 22:20 D-Dimer 1808.06 ng/mlDDU (0-234) H 08/07/19 10:24 Abnormal lab findings: Abnormal Labs 07/03/19 07/03/19 07/03/19 19:57 21:10 21:13 WBC RBC Hgb Hct MCV MCH MCHC RDW Plt Count Lymph % (Auto) Benson % (Auto) Lymph # Benson # Baso # Seg Neutrophils % Seg Neuts % (Manual) Lymphocytes % (Manual) Monocytes % (Manual) Basophils % (Manual) Nucleated RBC % Seg Neutrophils # Seg Neutrophils # Man Lymphocytes # (Manual) Monocytes # (Manual) Eosinophils # (Manual) Basophils # (Manual) PT INR D-Dimer ABG pH 7.238 L ABG pO2 210.8 H ABG HCO3 15.4 L ABG O2 Saturation 99.2 H ABG Base Excess -11.1 L ABG Hemoglobin 8.0 L Oxyhemoglobin Sodium 124 L Potassium Chloride 92.9 L Carbon Dioxide 10 L BUN 23 H Creatinine 0.5 L Glucose 118 H POC Glucose Lactic Acid Calcium 7.0 L Magnesium Iron TIBC Ferritin AST 70 H ALT 88 H Lactate Dehydrogenase Troponin T 0.032 H C-Reactive Protein Total Protein 5.0 L Albumin 1.8 L Prealbumin Cholesterol 47 L LDL Cholesterol Direct 25 L HDL Cholesterol 20 L Urine WBC (Auto) 12.0 H Vancomycin Trough Coronavirus (PCR) Crossmatch 07/03/19 07/03/19 07/03/19 22:20 22:20 22:20 WBC 30.5 H RBC 2.96 L Hgb 7.7 L Hct 23.9 L MCV 81 L MCH 26 L MCHC RDW 18.6 H Plt Count 459 H Lymph % (Auto) Benson % (Auto) Lymph # Benson # Baso # Seg Neutrophils % Seg Neuts % (Manual) 93.0 H Lymphocytes % (Manual) 0.5 L Monocytes % (Manual) Basophils % (Manual) Nucleated RBC % Seg Neutrophils # Seg Neutrophils # Man 28.4 H Lymphocytes # (Manual) 0.2 L Monocytes # (Manual) Eosinophils # (Manual) Basophils # (Manual) PT 16.0 H INR 1.26 H D-Dimer ABG pH ABG pO2 ABG HCO3 ABG O2 Saturation ABG Base Excess ABG Hemoglobin Oxyhemoglobin Sodium Potassium Chloride Carbon Dioxide BUN Creatinine Glucose POC Glucose Lactic Acid 6.90 H* Calcium Magnesium Iron TIBC Ferritin AST ALT Lactate Dehydrogenase Troponin T C-Reactive Protein Total Protein Albumin Prealbumin Cholesterol LDL Cholesterol Direct HDL Cholesterol Urine WBC (Auto) Vancomycin Trough Coronavirus (PCR) Crossmatch 07/03/19 07/04/19 07/04/19 23:58 05:15 07:05 WBC 17.1 H RBC 3.22 L Hgb 8.3 L Hct 25.4 L MCV 79 L MCH 26 L MCHC RDW 18.6 H Plt Count Lymph % (Auto) Benson % (Auto) Lymph # Benson # Baso # Seg Neutrophils % Seg Neuts % (Manual) 74.0 H Lymphocytes % (Manual) 0 L Monocytes % (Manual) Basophils % (Manual) Nucleated RBC % Seg Neutrophils # Seg Neutrophils # Man 12.7 H Lymphocytes # (Manual) 0.0 L Monocytes # (Manual) Eosinophils # (Manual) Basophils # (Manual) PT INR D-Dimer ABG pH 7.310 L ABG pO2 73.2 L ABG HCO3 17.8 L ABG O2 Saturation 93.8 L ABG Base Excess -7.7 L ABG Hemoglobin 9.6 L Oxyhemoglobin 92.3 L Sodium Potassium Chloride Carbon Dioxide BUN Creatinine Glucose POC Glucose Lactic Acid 7.10 H* Calcium Magnesium Iron TIBC Ferritin AST ALT Lactate Dehydrogenase Troponin T C-Reactive Protein Total Protein Albumin Prealbumin Cholesterol LDL Cholesterol Direct HDL Cholesterol Urine WBC (Auto) Vancomycin Trough Coronavirus (PCR) Crossmatch 07/04/19 07/04/19 07/04/19 07:05 07:05 07:05 WBC RBC Hgb Hct MCV MCH MCHC RDW Plt Count Lymph % (Auto) Benson % (Auto) Lymph # Benson # Baso # Seg Neutrophils % Seg Neuts % (Manual) Lymphocytes % (Manual) Monocytes % (Manual) Basophils % (Manual) Nucleated RBC % Seg Neutrophils # Seg Neutrophils # Man Lymphocytes # (Manual) Monocytes # (Manual) Eosinophils # (Manual) Basophils # (Manual) PT INR D-Dimer ABG pH ABG pO2 ABG HCO3 ABG O2 Saturation ABG Base Excess ABG Hemoglobin Oxyhemoglobin Sodium 120 L Potassium 5.1 H Chloride 90.0 L Carbon Dioxide 14 L BUN 26 H Creatinine 0.5 L Glucose POC Glucose Lactic Acid 3.30 H* Calcium 8.0 L Magnesium Iron 9 L TIBC 97 L Ferritin AST 73 H ALT 91 H Lactate Dehydrogenase Troponin T C-Reactive Protein Total Protein 5.5 L Albumin 2.0 L Prealbumin Cholesterol LDL Cholesterol Direct HDL Cholesterol Urine WBC (Auto) Vancomycin Trough Coronavirus (PCR) Crossmatch 07/04/19 07/04/19 07/04/19 09:39 09:39 09:39 WBC RBC Hgb Hct MCV MCH MCHC RDW Plt Count Lymph % (Auto) Benson % (Auto) Lymph # Benson # Baso # Seg Neutrophils % Seg Neuts % (Manual) Lymphocytes % (Manual) Monocytes % (Manual) Basophils % (Manual) Nucleated RBC % Seg Neutrophils # Seg Neutrophils # Man Lymphocytes # (Manual) Monocytes # (Manual) Eosinophils # (Manual) Basophils # (Manual) PT INR D-Dimer 1419.14 H ABG pH ABG pO2 ABG HCO3 ABG O2 Saturation ABG Base Excess ABG Hemoglobin Oxyhemoglobin Sodium Potassium Chloride Carbon Dioxide BUN Creatinine Glucose POC Glucose Lactic Acid Calcium Magnesium Iron TIBC Ferritin 1719.0 H AST ALT Lactate Dehydrogenase 234 H Troponin T C-Reactive Protein 15.50 H Total Protein Albumin Prealbumin Cholesterol LDL Cholesterol Direct HDL Cholesterol Urine WBC (Auto) Vancomycin Trough Coronavirus (PCR) Crossmatch 07/04/19 07/04/19 07/04/19 10:09 18:08 18:28 WBC RBC Hgb Hct MCV MCH MCHC RDW Plt Count Lymph % (Auto) Benson % (Auto) Lymph # Benson # Baso # Seg Neutrophils % Seg Neuts % (Manual) Lymphocytes % (Manual) Monocytes % (Manual) Basophils % (Manual) Nucleated RBC % Seg Neutrophils # Seg Neutrophils # Man Lymphocytes # (Manual) Monocytes # (Manual) Eosinophils # (Manual) Basophils # (Manual) PT INR D-Dimer ABG pH ABG pO2 ABG HCO3 ABG O2 Saturation ABG Base Excess ABG Hemoglobin Oxyhemoglobin Sodium 117 L* Potassium 5.6 H Chloride 90.3 L Carbon Dioxide 16 L BUN 28 H Creatinine 0.5 L Glucose 58 L POC Glucose 65 L Lactic Acid Calcium 8.2 L Magnesium Iron TIBC Ferritin AST ALT Lactate Dehydrogenase Troponin T C-Reactive Protein Total Protein Albumin Prealbumin Cholesterol LDL Cholesterol Direct HDL Cholesterol Urine WBC (Auto) Vancomycin Trough Coronavirus (PCR) Positive A Crossmatch 07/04/19 07/04/19 07/04/19 23:45 Unknown Unknown WBC RBC Hgb Hct MCV MCH MCHC RDW Plt Count Lymph % (Auto) Benson % (Auto) Lymph # Benson # Baso # Seg Neutrophils % Seg Neuts % (Manual) Lymphocytes % (Manual) Monocytes % (Manual) Basophils % (Manual) Nucleated RBC % Seg Neutrophils # Seg Neutrophils # Man Lymphocytes # (Manual) Monocytes # (Manual) Eosinophils # (Manual) Basophils # (Manual) PT INR D-Dimer 759.77 H ABG pH ABG pO2 ABG HCO3 ABG O2 Saturation ABG Base Excess ABG Hemoglobin Oxyhemoglobin Sodium 122 L Potassium Chloride 93.0 L Carbon Dioxide 19 L BUN 27 H Creatinine 0.5 L Glucose POC Glucose Lactic Acid Calcium 8.3 L Magnesium Iron TIBC Ferritin 1301.0 H AST ALT Lactate Dehydrogenase Troponin T C-Reactive Protein Total Protein Albumin Prealbumin Cholesterol LDL Cholesterol Direct HDL Cholesterol Urine WBC (Auto) Vancomycin Trough Coronavirus (PCR) Crossmatch 07/04/19 07/05/19 07/05/19 Unknown 03:20 04:00 WBC RBC Hgb Hct MCV MCH MCHC RDW Plt Count Lymph % (Auto) Benson % (Auto) Lymph # Benson # Baso # Seg Neutrophils % Seg Neuts % (Manual) Lymphocytes % (Manual) Monocytes % (Manual) Basophils % (Manual) Nucleated RBC % Seg Neutrophils # Seg Neutrophils # Man Lymphocytes # (Manual) Monocytes # (Manual) Eosinophils # (Manual) Basophils # (Manual) PT INR D-Dimer ABG pH ABG pO2 60.6 L ABG HCO3 ABG O2 Saturation 93.5 L ABG Base Excess -2.4 L ABG Hemoglobin 6.9 L Oxyhemoglobin 92.0 L Sodium 125 L Potassium Chloride 92.6 L Carbon Dioxide 19 L BUN 24 H Creatinine 0.6 L Glucose POC Glucose Lactic Acid Calcium 8.2 L Magnesium 1.40 L Iron TIBC Ferritin AST ALT Lactate Dehydrogenase 242 H Troponin T C-Reactive Protein 16.70 H Total Protein Albumin Prealbumin Cholesterol LDL Cholesterol Direct HDL Cholesterol Urine WBC (Auto) Vancomycin Trough Coronavirus (PCR) Crossmatch 07/05/19 07/05/19 07/05/19 10:11 16:15 17:54 WBC 46.4 H* RBC 2.77 L Hgb 7.2 L Hct 21.9 L MCV 79 L MCH 26 L MCHC RDW 19.0 H Plt Count Lymph % (Auto) Benson % (Auto) Lymph # Benson # Baso # Seg Neutrophils % Seg Neuts % (Manual) 82.0 H Lymphocytes % (Manual) 1.0 L Monocytes % (Manual) Basophils % (Manual) Nucleated RBC % Seg Neutrophils # Seg Neutrophils # Man 38.0 H Lymphocytes # (Manual) 0.5 L Monocytes # (Manual) Eosinophils # (Manual) Basophils # (Manual) PT INR D-Dimer ABG pH ABG pO2 ABG HCO3 ABG O2 Saturation ABG Base Excess ABG Hemoglobin Oxyhemoglobin Sodium Potassium Chloride Carbon Dioxide BUN Creatinine Glucose POC Glucose 69 L Lactic Acid Calcium Magnesium Iron TIBC Ferritin AST ALT Lactate Dehydrogenase Troponin T C-Reactive Protein Total Protein Albumin Prealbumin Cholesterol LDL Cholesterol Direct HDL Cholesterol Urine WBC (Auto) Vancomycin Trough 23.2 H Coronavirus (PCR) Crossmatch 07/05/19 07/06/19 07/06/19 19:58 00:27 00:27 WBC RBC Hgb Hct MCV MCH MCHC RDW Plt Count Lymph % (Auto) Benson % (Auto) Lymph # Benson # Baso # Seg Neutrophils % Seg Neuts % (Manual) Lymphocytes % (Manual) Monocytes % (Manual) Basophils % (Manual) Nucleated RBC % Seg Neutrophils # Seg Neutrophils # Man Lymphocytes # (Manual) Monocytes # (Manual) Eosinophils # (Manual) Basophils # (Manual) PT INR D-Dimer 1333.22 H ABG pH ABG pO2 ABG HCO3 ABG O2 Saturation ABG Base Excess ABG Hemoglobin Oxyhemoglobin Sodium 127 L Potassium Chloride Carbon Dioxide BUN Creatinine Glucose POC Glucose Lactic Acid Calcium Magnesium Iron TIBC Ferritin 977.1 H AST ALT Lactate Dehydrogenase Troponin T C-Reactive Protein Total Protein Albumin Prealbumin Cholesterol LDL Cholesterol Direct HDL Cholesterol Urine WBC (Auto) Vancomycin Trough Coronavirus (PCR) Crossmatch 07/06/19 07/06/19 07/06/19 00:27 02:00 02:56 WBC RBC Hgb Hct MCV MCH MCHC RDW Plt Count Lymph % (Auto) Benson % (Auto) Lymph # Benson # Baso # Seg Neutrophils % Seg Neuts % (Manual) Lymphocytes % (Manual) Monocytes % (Manual) Basophils % (Manual) Nucleated RBC % Seg Neutrophils # Seg Neutrophils # Man Lymphocytes # (Manual) Monocytes # (Manual) Eosinophils # (Manual) Basophils # (Manual) PT INR D-Dimer ABG pH ABG pO2 70.3 L ABG HCO3 ABG O2 Saturation 94.8 L ABG Base Excess ABG Hemoglobin 8.0 L Oxyhemoglobin 93.2 L Sodium Potassium Chloride Carbon Dioxide BUN Creatinine Glucose POC Glucose 117 H Lactic Acid Calcium Magnesium Iron TIBC Ferritin AST ALT Lactate Dehydrogenase 236 H Troponin T C-Reactive Protein 22.90 H Total Protein Albumin Prealbumin Cholesterol LDL Cholesterol Direct HDL Cholesterol Urine WBC (Auto) Vancomycin Trough Coronavirus (PCR) Crossmatch 07/06/19 07/06/19 07/06/19 03:49 03:49 07:40 WBC 38.8 H RBC 2.51 L Hgb 6.7 L Hct 19.9 L* MCV 79 L MCH 27 L MCHC RDW 19.2 H Plt Count Lymph % (Auto) Benson % (Auto) Lymph # Benson # Baso # Seg Neutrophils % Seg Neuts % (Manual) 90.5 H Lymphocytes % (Manual) 1.0 L Monocytes % (Manual) Basophils % (Manual) Nucleated RBC % Seg Neutrophils # Seg Neutrophils # Man 35.1 H Lymphocytes # (Manual) 0.4 L Monocytes # (Manual) Eosinophils # (Manual) Basophils # (Manual) PT INR D-Dimer ABG pH ABG pO2 ABG HCO3 ABG O2 Saturation ABG Base Excess ABG Hemoglobin Oxyhemoglobin Sodium 131 L Potassium Chloride 96.9 L Carbon Dioxide 18 L BUN 23 H Creatinine 0.5 L Glucose POC Glucose Lactic Acid Calcium 8.0 L Magnesium Iron TIBC Ferritin AST ALT Lactate Dehydrogenase Troponin T C-Reactive Protein Total Protein Albumin Prealbumin Cholesterol LDL Cholesterol Direct HDL Cholesterol Urine WBC (Auto) Vancomycin Trough Coronavirus (PCR) Crossmatch See Detail 07/06/19 07/06/19 07/06/19 12:38 14:39 20:00 WBC RBC Hgb Hct MCV MCH MCHC RDW Plt Count Lymph % (Auto) Benson % (Auto) Lymph # Benson # Baso # Seg Neutrophils % Seg Neuts % (Manual) Lymphocytes % (Manual) Monocytes % (Manual) Basophils % (Manual) Nucleated RBC % Seg Neutrophils # Seg Neutrophils # Man Lymphocytes # (Manual) Monocytes # (Manual) Eosinophils # (Manual) Basophils # (Manual) PT INR D-Dimer ABG pH ABG pO2 ABG HCO3 ABG O2 Saturation ABG Base Excess ABG Hemoglobin Oxyhemoglobin Sodium Potassium Chloride Carbon Dioxide BUN Creatinine Glucose POC Glucose 112 H 111 H 140 H Lactic Acid Calcium Magnesium Iron TIBC Ferritin AST ALT Lactate Dehydrogenase Troponin T C-Reactive Protein Total Protein Albumin Prealbumin Cholesterol LDL Cholesterol Direct HDL Cholesterol Urine WBC (Auto) Vancomycin Trough Coronavirus (PCR) Crossmatch 07/06/19 07/06/19 07/07/19 22:43 22:56 02:20 WBC RBC Hgb 7.9 L Hct 23.1 L MCV MCH MCHC RDW Plt Count Lymph % (Auto) Benson % (Auto) Lymph # Benson # Baso # Seg Neutrophils % Seg Neuts % (Manual) Lymphocytes % (Manual) Monocytes % (Manual) Basophils % (Manual) Nucleated RBC % Seg Neutrophils # Seg Neutrophils # Man Lymphocytes # (Manual) Monocytes # (Manual) Eosinophils # (Manual) Basophils # (Manual) PT INR D-Dimer ABG pH ABG pO2 ABG HCO3 ABG O2 Saturation ABG Base Excess ABG Hemoglobin Oxyhemoglobin Sodium Potassium Chloride Carbon Dioxide BUN Creatinine Glucose POC Glucose 122 H 149 H Lactic Acid Calcium Magnesium Iron TIBC Ferritin AST ALT Lactate Dehydrogenase Troponin T C-Reactive Protein Total Protein Albumin Prealbumin Cholesterol LDL Cholesterol Direct HDL Cholesterol Urine WBC (Auto) Vancomycin Trough Coronavirus (PCR) Crossmatch 07/07/19 07/07/19 07/07/19 04:35 05:27 05:34 WBC 23.1 H RBC 3.00 L Hgb 8.1 L Hct 24.2 L MCV 81 L MCH 27 L MCHC RDW 20.6 H Plt Count Lymph % (Auto) Benson % (Auto) Lymph # Benson # Baso # Seg Neutrophils % Seg Neuts % (Manual) 90.0 H Lymphocytes % (Manual) 2.0 L Monocytes % (Manual) Basophils % (Manual) Nucleated RBC % Seg Neutrophils # Seg Neutrophils # Man 20.8 H Lymphocytes # (Manual) 0.5 L Monocytes # (Manual) Eosinophils # (Manual) Basophils # (Manual) PT INR D-Dimer ABG pH ABG pO2 65.8 L ABG HCO3 ABG O2 Saturation 92.2 L ABG Base Excess ABG Hemoglobin 8.3 L Oxyhemoglobin 90.6 L Sodium Potassium Chloride Carbon Dioxide BUN Creatinine Glucose POC Glucose 132 H Lactic Acid Calcium Magnesium Iron TIBC Ferritin AST ALT Lactate Dehydrogenase Troponin T C-Reactive Protein Total Protein Albumin Prealbumin Cholesterol LDL Cholesterol Direct HDL Cholesterol Urine WBC (Auto) Vancomycin Trough Coronavirus (PCR) Crossmatch 07/07/19 07/07/19 07/07/19 05:34 11:50 15:58 WBC RBC Hgb 8.1 L Hct 24.2 L MCV MCH MCHC RDW Plt Count Lymph % (Auto) Benson % (Auto) Lymph # Benson # Baso # Seg Neutrophils % Seg Neuts % (Manual) Lymphocytes % (Manual) Monocytes % (Manual) Basophils % (Manual) Nucleated RBC % Seg Neutrophils # Seg Neutrophils # Man Lymphocytes # (Manual) Monocytes # (Manual) Eosinophils # (Manual) Basophils # (Manual) PT INR D-Dimer ABG pH ABG pO2 ABG HCO3 ABG O2 Saturation ABG Base Excess ABG Hemoglobin Oxyhemoglobin Sodium 135 L Potassium 3.3 L Chloride Carbon Dioxide 20 L BUN 27 H Creatinine 0.6 L Glucose 121 H POC Glucose 123 H Lactic Acid Calcium 8.0 L Magnesium Iron TIBC Ferritin AST ALT Lactate Dehydrogenase Troponin T C-Reactive Protein Total Protein Albumin Prealbumin Cholesterol LDL Cholesterol Direct HDL Cholesterol Urine WBC (Auto) Vancomycin Trough Coronavirus (PCR) Crossmatch 07/07/19 07/07/19 07/07/19 17:42 22:00 23:53 WBC RBC Hgb 8.0 L Hct 23.4 L MCV MCH MCHC RDW Plt Count Lymph % (Auto) Benson % (Auto) Lymph # Benson # Baso # Seg Neutrophils % Seg Neuts % (Manual) Lymphocytes % (Manual) Monocytes % (Manual) Basophils % (Manual) Nucleated RBC % Seg Neutrophils # Seg Neutrophils # Man Lymphocytes # (Manual) Monocytes # (Manual) Eosinophils # (Manual) Basophils # (Manual) PT INR D-Dimer ABG pH ABG pO2 ABG HCO3 ABG O2 Saturation ABG Base Excess ABG Hemoglobin Oxyhemoglobin Sodium Potassium Chloride Carbon Dioxide BUN Creatinine Glucose POC Glucose 107 H 117 H Lactic Acid Calcium Magnesium Iron TIBC Ferritin AST ALT Lactate Dehydrogenase Troponin T C-Reactive Protein Total Protein Albumin Prealbumin Cholesterol LDL Cholesterol Direct HDL Cholesterol Urine WBC (Auto) Vancomycin Trough Coronavirus (PCR) Crossmatch 07/08/19 07/08/19 07/08/19 00:45 00:45 00:45 WBC RBC Hgb Hct MCV MCH MCHC RDW Plt Count Lymph % (Auto) Benson % (Auto) Lymph # Benson # Baso # Seg Neutrophils % Seg Neuts % (Manual) Lymphocytes % (Manual) Monocytes % (Manual) Basophils % (Manual) Nucleated RBC % Seg Neutrophils # Seg Neutrophils # Man Lymphocytes # (Manual) Monocytes # (Manual) Eosinophils # (Manual) Basophils # (Manual) PT INR D-Dimer 1142.18 H ABG pH ABG pO2 ABG HCO3 ABG O2 Saturation ABG Base Excess ABG Hemoglobin Oxyhemoglobin Sodium Potassium Chloride Carbon Dioxide BUN Creatinine Glucose POC Glucose Lactic Acid Calcium Magnesium Iron TIBC Ferritin 839.0 H AST ALT Lactate Dehydrogenase 253 H Troponin T C-Reactive Protein 18.90 H Total Protein Albumin Prealbumin Cholesterol LDL Cholesterol Direct HDL Cholesterol Urine WBC (Auto) Vancomycin Trough Coronavirus (PCR) Crossmatch 07/08/19 07/08/19 07/08/19 04:30 05:11 12:02 WBC RBC Hgb Hct MCV MCH MCHC RDW Plt Count Lymph % (Auto) Benson % (Auto) Lymph # Benson # Baso # Seg Neutrophils % Seg Neuts % (Manual) Lymphocytes % (Manual) Monocytes % (Manual) Basophils % (Manual) Nucleated RBC % Seg Neutrophils # Seg Neutrophils # Man Lymphocytes # (Manual) Monocytes # (Manual) Eosinophils # (Manual) Basophils # (Manual) PT INR D-Dimer ABG pH ABG pO2 66.0 L ABG HCO3 ABG O2 Saturation 92.3 L ABG Base Excess ABG Hemoglobin 7.7 L Oxyhemoglobin 90.7 L Sodium Potassium Chloride Carbon Dioxide BUN Creatinine Glucose POC Glucose 108 H 153 H Lactic Acid Calcium Magnesium Iron TIBC Ferritin AST ALT Lactate Dehydrogenase Troponin T C-Reactive Protein Total Protein Albumin Prealbumin Cholesterol LDL Cholesterol Direct HDL Cholesterol Urine WBC (Auto) Vancomycin Trough Coronavirus (PCR) Crossmatch 07/08/19 07/08/19 07/08/19 16:15 18:22 23:35 WBC RBC Hgb Hct MCV MCH MCHC RDW Plt Count Lymph % (Auto) Benson % (Auto) Lymph # Benson # Baso # Seg Neutrophils % Seg Neuts % (Manual) Lymphocytes % (Manual) Monocytes % (Manual) Basophils % (Manual) Nucleated RBC % Seg Neutrophils # Seg Neutrophils # Man Lymphocytes # (Manual) Monocytes # (Manual) Eosinophils # (Manual) Basophils # (Manual) PT INR D-Dimer ABG pH ABG pO2 ABG HCO3 ABG O2 Saturation ABG Base Excess ABG Hemoglobin Oxyhemoglobin Sodium 134 L Potassium 3.3 L Chloride Carbon Dioxide 21 L BUN 27 H Creatinine 0.6 L Glucose 146 H POC Glucose 134 H 133 H Lactic Acid Calcium Magnesium Iron TIBC Ferritin AST ALT Lactate Dehydrogenase Troponin T C-Reactive Protein Total Protein Albumin Prealbumin Cholesterol LDL Cholesterol Direct HDL Cholesterol Urine WBC (Auto) Vancomycin Trough Coronavirus (PCR) Crossmatch 07/09/19 07/09/19 07/09/19 04:30 04:30 05:00 WBC 18.9 H RBC 2.77 L Hgb 7.4 L Hct 22.8 L MCV 82 L MCH 27 L MCHC RDW 20.9 H Plt Count 130 L Lymph % (Auto) Benson % (Auto) Lymph # Benson # Baso # Seg Neutrophils % Seg Neuts % (Manual) 84.0 H Lymphocytes % (Manual) 0 L Monocytes % (Manual) Basophils % (Manual) Nucleated RBC % Seg Neutrophils # Seg Neutrophils # Man 15.9 H Lymphocytes # (Manual) 0.0 L Monocytes # (Manual) Eosinophils # (Manual) Basophils # (Manual) PT INR D-Dimer ABG pH ABG pO2 ABG HCO3 ABG O2 Saturation ABG Base Excess ABG Hemoglobin Oxyhemoglobin Sodium Potassium 3.1 L Chloride Carbon Dioxide BUN 26 H Creatinine 0.5 L Glucose 125 H POC Glucose 155 H Lactic Acid Calcium Magnesium Iron TIBC Ferritin AST ALT Lactate Dehydrogenase Troponin T C-Reactive Protein Total Protein Albumin Prealbumin Cholesterol LDL Cholesterol Direct HDL Cholesterol Urine WBC (Auto) Vancomycin Trough Coronavirus (PCR) Crossmatch 07/09/19 07/09/19 07/09/19 05:55 12:22 17:50 WBC RBC Hgb Hct MCV MCH MCHC RDW Plt Count Lymph % (Auto) [place] % (Auto) Lymph # [place] # Baso # Seg Neutrophils % Seg Neuts % (Manual) Lymphocytes % (Manual) Monocytes % (Manual) Basophils % (Manual) Nucleated RBC % Seg Neutrophils # Seg Neutrophils # Man Lymphocytes # (Manual) Monocytes # (Manual) Eosinophils # (Manual) Basophils # (Manual) PT INR D-Dimer ABG pH ABG pO2 62.8 L ABG HCO3 ABG O2 Saturation ABG Base Excess ABG Hemoglobin 6.1 L Oxyhemoglobin 93.9 L Sodium Potassium Chloride Carbon Dioxide BUN Creatinine Glucose POC Glucose 115 H 133 H Lactic Acid Calcium Magnesium Iron TIBC Ferritin AST ALT Lactate Dehydrogenase Troponin T C-Reactive Protein Total Protein Albumin Prealbumin Cholesterol LDL Cholesterol Direct HDL Cholesterol Urine WBC (Auto) Vancomycin Trough Coronavirus (PCR) Crossmatch 07/10/19 07/10/19 07/10/19 00:38 04:00 04:00 WBC RBC Hgb Hct MCV MCH MCHC RDW Plt Count Lymph % (Auto) [place] % (Auto) Lymph # [place] # Baso # Seg Neutrophils % Seg Neuts % (Manual) Lymphocytes % (Manual) Monocytes % (Manual) Basophils % (Manual) Nucleated RBC % Seg Neutrophils # Seg Neutrophils # Man Lymphocytes # (Manual) Monocytes # (Manual) Eosinophils # (Manual) Basophils # (Manual) PT INR D-Dimer ABG pH ABG pO2 ABG HCO3 ABG O2 Saturation ABG Base Excess ABG Hemoglobin Oxyhemoglobin Sodium Potassium Chloride 107.9 H Carbon Dioxide BUN 26 H Creatinine 0.4 L Glucose 137 H POC Glucose 122 H Lactic Acid Calcium Magnesium 1.50 L Iron TIBC Ferritin AST ALT Lactate Dehydrogenase 277 H Troponin T C-Reactive Protein 15.10 H Total Protein Albumin Prealbumin Cholesterol LDL Cholesterol Direct HDL Cholesterol Urine WBC (Auto) Vancomycin Trough Coronavirus (PCR) Crossmatch 07/10/19 07/10/19 07/10/19 04:07 05:21 17:25 WBC RBC Hgb Hct MCV MCH MCHC RDW Plt Count Lymph % (Auto) [place] % (Auto) Lymph # [place] # Baso # Seg Neutrophils % Seg Neuts % (Manual) Lymphocytes % (Manual) Monocytes % (Manual) Basophils % (Manual) Nucleated RBC % Seg Neutrophils # Seg Neutrophils # Man Lymphocytes # (Manual) Monocytes # (Manual) Eosinophils # (Manual) Basophils # (Manual) PT INR D-Dimer ABG pH ABG pO2 65.6 L ABG HCO3 26.3 H ABG O2 Saturation ABG Base Excess ABG Hemoglobin 6.7 L Oxyhemoglobin Sodium Potassium Chloride Carbon Dioxide BUN Creatinine Glucose POC Glucose 144 H 113 H Lactic Acid Calcium Magnesium Iron TIBC Ferritin AST ALT Lactate Dehydrogenase Troponin T C-Reactive Protein Total Protein Albumin Prealbumin Cholesterol LDL Cholesterol Direct HDL Cholesterol Urine WBC (Auto) Vancomycin Trough Coronavirus (PCR) Crossmatch 07/11/19 07/11/19 07/11/19 00:07 05:14 05:25 WBC RBC Hgb Hct MCV MCH MCHC RDW Plt Count Lymph % (Auto) [place] % (Auto) Lymph # [place] # Baso # Seg Neutrophils % Seg Neuts % (Manual) Lymphocytes % (Manual) Monocytes % (Manual) Basophils % (Manual) Nucleated RBC % Seg Neutrophils # Seg Neutrophils # Man Lymphocytes # (Manual) Monocytes # (Manual) Eosinophils # (Manual) Basophils # (Manual) PT INR D-Dimer ABG pH ABG pO2 ABG HCO3 ABG O2 Saturation ABG Base Excess ABG Hemoglobin 5.8 L Oxyhemoglobin Sodium Potassium Chloride 108.0 H Carbon Dioxide BUN 26 H Creatinine 0.4 L Glucose 110 H POC Glucose 121 H Lactic Acid Calcium Magnesium Iron TIBC Ferritin AST ALT Lactate Dehydrogenase Troponin T C-Reactive Protein Total Protein Albumin Prealbumin Cholesterol LDL Cholesterol Direct HDL Cholesterol Urine WBC (Auto) Vancomycin Trough Coronavirus (PCR) Crossmatch 07/11/19 07/11/19 07/11/19 12:27 18:00 23:42 WBC RBC Hgb Hct MCV MCH MCHC RDW Plt Count Lymph % (Auto) [place] % (Auto) Lymph # [place] # Baso # Seg Neutrophils % Seg Neuts % (Manual) Lymphocytes % (Manual) Monocytes % (Manual) Basophils % (Manual) Nucleated RBC % Seg Neutrophils # Seg Neutrophils # Man Lymphocytes # (Manual) Monocytes # (Manual) Eosinophils # (Manual) Basophils # (Manual) PT INR D-Dimer ABG pH ABG pO2 ABG HCO3 ABG O2 Saturation ABG Base Excess ABG Hemoglobin Oxyhemoglobin Sodium Potassium Chloride Carbon Dioxide BUN Creatinine Glucose POC Glucose 158 H 141 H 142 H Lactic Acid Calcium Magnesium Iron TIBC Ferritin AST ALT Lactate Dehydrogenase Troponin T C-Reactive Protein Total Protein Albumin Prealbumin Cholesterol LDL Cholesterol Direct HDL Cholesterol Urine WBC (Auto) Vancomycin Trough Coronavirus (PCR) Crossmatch 07/12/19 07/12/19 07/12/19 04:46 04:46 05:23 WBC 23.6 H RBC 2.51 L Hgb 6.7 L Hct 20.8 L MCV 83 L MCH 27 L MCHC RDW 20.3 H Plt Count Lymph % (Auto) [place] % (Auto) Lymph # [place] # Baso # Seg Neutrophils % Seg Neuts % (Manual) 94.0 H Lymphocytes % (Manual) 4.0 L Monocytes % (Manual) Basophils % (Manual) Nucleated RBC % Seg Neutrophils # Seg Neutrophils # Man 22.2 H Lymphocytes # (Manual) 0.9 L Monocytes # (Manual) Eosinophils # (Manual) Basophils # (Manual) PT INR D-Dimer ABG pH ABG pO2 ABG HCO3 ABG O2 Saturation ABG Base Excess ABG Hemoglobin Oxyhemoglobin Sodium Potassium Chloride 107.1 H Carbon Dioxide BUN 25 H Creatinine 0.4 L Glucose 122 H POC Glucose 118 H Lactic Acid Calcium Magnesium Iron TIBC Ferritin AST ALT Lactate Dehydrogenase Troponin T C-Reactive Protein Total Protein Albumin Prealbumin Cholesterol LDL Cholesterol Direct HDL Cholesterol Urine WBC (Auto) Vancomycin Trough Coronavirus (PCR) Crossmatch 07/12/19 07/12/19 07/12/19 08:49 11:36 18:15 WBC RBC Hgb Hct MCV MCH MCHC RDW Plt Count Lymph % (Auto) [place] % (Auto) Lymph # [place] # Baso # Seg Neutrophils % Seg Neuts % (Manual) Lymphocytes % (Manual) Monocytes % (Manual) Basophils % (Manual) Nucleated RBC % Seg Neutrophils # Seg Neutrophils # Man Lymphocytes # (Manual) Monocytes # (Manual) Eosinophils # (Manual) Basophils # (Manual) PT INR D-Dimer ABG pH ABG pO2 ABG HCO3 ABG O2 Saturation ABG Base Excess ABG Hemoglobin Oxyhemoglobin Sodium Potassium Chloride Carbon Dioxide BUN Creatinine Glucose POC Glucose 124 H 110 H Lactic Acid Calcium Magnesium Iron TIBC Ferritin AST ALT Lactate Dehydrogenase Troponin T C-Reactive Protein Total Protein Albumin Prealbumin Cholesterol LDL Cholesterol Direct HDL Cholesterol Urine WBC (Auto) Vancomycin Trough Coronavirus (PCR) Crossmatch See Detail 07/12/19 07/13/19 07/13/19 23:16 05:26 06:50 WBC 23.9 H RBC 2.58 L Hgb 6.9 L Hct 21.5 L MCV 83 L MCH 27 L MCHC RDW 19.0 H Plt Count Lymph % (Auto) [place] % (Auto) Lymph # [place] # Baso # Seg Neutrophils % Seg Neuts % (Manual) 96.0 H Lymphocytes % (Manual) 3.0 L Monocytes % (Manual) Basophils % (Manual) Nucleated RBC % Seg Neutrophils # Seg Neutrophils # Man 22.9 H Lymphocytes # (Manual) 0.7 L Monocytes # (Manual) Eosinophils # (Manual) Basophils # (Manual) PT INR D-Dimer ABG pH ABG pO2 ABG HCO3 ABG O2 Saturation ABG Base Excess ABG Hemoglobin Oxyhemoglobin Sodium Potassium Chloride Carbon Dioxide BUN Creatinine Glucose POC Glucose 108 H 126 H Lactic Acid Calcium Magnesium Iron TIBC Ferritin AST ALT Lactate Dehydrogenase Troponin T C-Reactive Protein Total Protein Albumin Prealbumin Cholesterol LDL Cholesterol Direct HDL Cholesterol Urine WBC (Auto) Vancomycin Trough Coronavirus (PCR) Crossmatch 07/13/19 07/13/19 07/13/19 06:50 12:38 18:05 WBC RBC Hgb Hct MCV MCH MCHC RDW Plt Count Lymph % (Auto) [place] % (Auto) Lymph # [place] # Baso # Seg Neutrophils % Seg Neuts % (Manual) Lymphocytes % (Manual) Monocytes % (Manual) Basophils % (Manual) Nucleated RBC % Seg Neutrophils # Seg Neutrophils # Man Lymphocytes # (Manual) Monocytes # (Manual) Eosinophils # (Manual) Basophils # (Manual) PT INR D-Dimer ABG pH ABG pO2 ABG HCO3 ABG O2 Saturation ABG Base Excess ABG Hemoglobin Oxyhemoglobin Sodium Potassium Chloride Carbon Dioxide BUN 33 H Creatinine 0.5 L Glucose 136 H POC Glucose 164 H 145 H Lactic Acid Calcium Magnesium Iron TIBC Ferritin AST ALT Lactate Dehydrogenase Troponin T C-Reactive Protein Total Protein Albumin Prealbumin Cholesterol LDL Cholesterol Direct HDL Cholesterol Urine WBC (Auto) Vancomycin Trough Coronavirus (PCR) Crossmatch 07/13/19 07/14/19 07/14/19 18:30 00:21 04:40 WBC 22.9 H RBC 2.45 L Hgb 6.6 L Hct 21.1 L MCV MCH 27 L MCHC 31 L RDW 19.2 H Plt Count Lymph % (Auto) [place] % (Auto) Lymph # [place] # Baso # Seg Neutrophils % Seg Neuts % (Manual) 91.0 H Lymphocytes % (Manual) 7.0 L Monocytes % (Manual) Basophils % (Manual) Nucleated RBC % Seg Neutrophils # Seg Neutrophils # Man 20.8 H Lymphocytes # (Manual) Monocytes # (Manual) Eosinophils # (Manual) Basophils # (Manual) PT INR D-Dimer ABG pH ABG pO2 58.1 L ABG HCO3 ABG O2 Saturation 88.7 L ABG Base Excess ABG Hemoglobin 7.8 L Oxyhemoglobin 86.8 L Sodium Potassium Chloride Carbon Dioxide BUN Creatinine Glucose POC Glucose 118 H Lactic Acid Calcium Magnesium Iron TIBC Ferritin AST ALT Lactate Dehydrogenase Troponin T C-Reactive Protein Total Protein Albumin Prealbumin Cholesterol LDL Cholesterol Direct HDL Cholesterol Urine WBC (Auto) Vancomycin Trough Coronavirus (PCR) Crossmatch 07/14/19 07/14/19 07/14/19 04:40 05:38 05:45 WBC RBC Hgb Hct MCV MCH MCHC RDW Plt Count Lymph % (Auto) [place] % (Auto) Lymph # [place] # Baso # Seg Neutrophils % Seg Neuts % (Manual) Lymphocytes % (Manual) Monocytes % (Manual) Basophils % (Manual) Nucleated RBC % Seg Neutrophils # Seg Neutrophils # Man Lymphocytes # (Manual) Monocytes # (Manual) Eosinophils # (Manual) Basophils # (Manual) PT INR D-Dimer ABG pH 7.230 L ABG pO2 72.1 L ABG HCO3 ABG O2 Saturation 89.3 L ABG Base Excess -2.7 L ABG Hemoglobin 6.7 L Oxyhemoglobin 87.7 L Sodium Potassium Chloride 107.4 H Carbon Dioxide BUN 45 H Creatinine Glucose 101 H POC Glucose 154 H Lactic Acid Calcium Magnesium Iron TIBC Ferritin AST ALT Lactate Dehydrogenase Troponin T C-Reactive Protein Total Protein Albumin Prealbumin Cholesterol LDL Cholesterol Direct HDL Cholesterol Urine WBC (Auto) Vancomycin Trough Coronavirus (PCR) Crossmatch 07/14/19 07/14/19 07/14/19 12:25 18:20 19:01 WBC 22.4 H RBC 2.70 L Hgb 7.5 L Hct 23.3 L MCV MCH MCHC RDW 19.5 H Plt Count Lymph % (Auto) [place] % (Auto) Lymph # [place] # Baso # Seg Neutrophils % Seg Neuts % (Manual) Lymphocytes % (Manual) Monocytes % (Manual) Basophils % (Manual) Nucleated RBC % Seg Neutrophils # Seg Neutrophils # Man Lymphocytes # (Manual) Monocytes # (Manual) Eosinophils # (Manual) Basophils # (Manual) PT INR D-Dimer ABG pH ABG pO2 ABG HCO3 ABG O2 Saturation ABG Base Excess ABG Hemoglobin Oxyhemoglobin Sodium Potassium Chloride Carbon Dioxide BUN Creatinine Glucose POC Glucose 136 H 131 H Lactic Acid Calcium Magnesium Iron TIBC Ferritin AST ALT Lactate Dehydrogenase Troponin T C-Reactive Protein Total Protein Albumin Prealbumin Cholesterol LDL Cholesterol Direct HDL Cholesterol Urine WBC (Auto) Vancomycin Trough Coronavirus (PCR) Crossmatch 07/15/19 07/15/19 07/15/19 00:17 04:35 05:18 WBC 20.6 H RBC 2.41 L Hgb 6.8 L Hct 20.7 L MCV MCH MCHC RDW 20.2 H Plt Count Lymph % (Auto) [place] % (Auto) Lymph # [place] # Baso # Seg Neutrophils % Seg Neuts % (Manual) 92.0 H Lymphocytes % (Manual) 5.0 L Monocytes % (Manual) Basophils % (Manual) Nucleated RBC % Seg Neutrophils # Seg Neutrophils # Man 19.0 H Lymphocytes # (Manual) 1.0 L Monocytes # (Manual) Eosinophils # (Manual) Basophils # (Manual) PT INR D-Dimer ABG pH 7.342 L ABG pO2 ABG HCO3 ABG O2 Saturation ABG Base Excess -3.1 L ABG Hemoglobin 7.2 L Oxyhemoglobin 94.9 L Sodium Potassium Chloride Carbon Dioxide BUN Creatinine Glucose POC Glucose 116 H Lactic Acid Calcium Magnesium Iron TIBC Ferritin AST ALT Lactate Dehydrogenase Troponin T C-Reactive Protein Total Protein Albumin Prealbumin Cholesterol LDL Cholesterol Direct HDL Cholesterol Urine WBC (Auto) Vancomycin Trough Coronavirus (PCR) Crossmatch 07/15/19 07/15/19 07/15/19 05:18 05:57 11:28 WBC RBC Hgb Hct MCV MCH MCHC RDW Plt Count Lymph % (Auto) [place] % (Auto) Lymph # [place] # Baso # Seg Neutrophils % Seg Neuts % (Manual) Lymphocytes % (Manual) Monocytes % (Manual) Basophils % (Manual) Nucleated RBC % Seg Neutrophils # Seg Neutrophils # Man Lymphocytes # (Manual) Monocytes # (Manual) Eosinophils # (Manual) Basophils # (Manual) PT INR D-Dimer ABG pH ABG pO2 ABG HCO3 ABG O2 Saturation ABG Base Excess ABG Hemoglobin Oxyhemoglobin Sodium Potassium Chloride Carbon Dioxide 20 L BUN 59 H Creatinine Glucose 140 H POC Glucose 139 H 117 H Lactic Acid Calcium Magnesium Iron TIBC Ferritin AST ALT Lactate Dehydrogenase Troponin T C-Reactive Protein Total Protein Albumin Prealbumin Cholesterol LDL Cholesterol Direct HDL Cholesterol Urine WBC (Auto) Vancomycin Trough Coronavirus (PCR) Crossmatch 07/15/19 07/16/19 07/16/19 18:13 00:06 03:43 WBC RBC Hgb Hct MCV MCH MCHC RDW Plt Count Lymph % (Auto) [place] % (Auto) Lymph # [place] # Baso # Seg Neutrophils % Seg Neuts % (Manual) Lymphocytes % (Manual) Monocytes % (Manual) Basophils % (Manual) Nucleated RBC % Seg Neutrophils # Seg Neutrophils # Man Lymphocytes # (Manual) Monocytes # (Manual) Eosinophils # (Manual) Basophils # (Manual) PT INR D-Dimer ABG pH 7.344 L ABG pO2 68.6 L ABG HCO3 ABG O2 Saturation ABG Base Excess -3.5 L ABG Hemoglobin 6.1 L Oxyhemoglobin 93.3 L Sodium Potassium Chloride Carbon Dioxide BUN Creatinine Glucose POC Glucose 114 H 119 H Lactic Acid Calcium Magnesium Iron TIBC Ferritin AST ALT Lactate Dehydrogenase Troponin T C-Reactive Protein Total Protein Albumin Prealbumin Cholesterol LDL Cholesterol Direct HDL Cholesterol Urine WBC (Auto) Vancomycin Trough Coronavirus (PCR) Crossmatch 07/16/19 07/16/19 07/16/19 04:41 04:41 12:09 WBC 19.6 H RBC 2.81 L Hgb 7.7 L Hct 24.0 L MCV MCH 27 L MCHC RDW 19.4 H Plt Count 514 H Lymph % (Auto) 6.7 L [place] % (Auto) Lymph # Benson # 1.0 H Baso # Seg Neutrophils % 87.0 H Seg Neuts % (Manual) Lymphocytes % (Manual) Monocytes % (Manual) Basophils % (Manual) Nucleated RBC % Seg Neutrophils # 17.0 H Seg Neutrophils # Man Lymphocytes # (Manual) Monocytes # (Manual) Eosinophils # (Manual) Basophils # (Manual) PT INR D-Dimer ABG pH ABG pO2 ABG HCO3 ABG O2 Saturation ABG Base Excess ABG Hemoglobin Oxyhemoglobin Sodium Potassium 5.9 H Chloride Carbon Dioxide 21 L BUN 73 H Creatinine 2.0 H Glucose POC Glucose 141 H Lactic Acid Calcium Magnesium Iron TIBC Ferritin AST ALT Lactate Dehydrogenase Troponin T C-Reactive Protein Total Protein Albumin Prealbumin Cholesterol LDL Cholesterol Direct HDL Cholesterol Urine WBC (Auto) Vancomycin Trough Coronavirus (PCR) Crossmatch 07/16/19 07/16/19 07/17/19 16:19 17:45 00:16 WBC RBC Hgb Hct MCV MCH MCHC RDW Plt Count Lymph % (Auto) [place] % (Auto) Lymph # [place] # Baso # Seg Neutrophils % Seg Neuts % (Manual) Lymphocytes % (Manual) Monocytes % (Manual) Basophils % (Manual) Nucleated RBC % Seg Neutrophils # Seg Neutrophils # Man Lymphocytes # (Manual) Monocytes # (Manual) Eosinophils # (Manual) Basophils # (Manual) PT INR D-Dimer ABG pH ABG pO2 ABG HCO3 ABG O2 Saturation ABG Base Excess ABG Hemoglobin Oxyhemoglobin Sodium Potassium 5.1 H Chloride Carbon Dioxide 20 L BUN 72 H Creatinine 1.7 H Glucose 128 H POC Glucose 181 H 164 H Lactic Acid Calcium Magnesium Iron TIBC Ferritin AST ALT Lactate Dehydrogenase Troponin T C-Reactive Protein Total Protein Albumin Prealbumin Cholesterol LDL Cholesterol Direct HDL Cholesterol Urine WBC (Auto) Vancomycin Trough Coronavirus (PCR) Crossmatch 07/17/19 07/17/19 07/17/19 04:20 04:39 04:39 WBC 16.1 H RBC 2.92 L Hgb 8.0 L Hct 25.5 L MCV MCH MCHC 31 L RDW 19.7 H Plt Count 564 H Lymph % (Auto) 3.6 L [place] % (Auto) 7.4 H Lymph # 0.6 L Benson # 1.2 H Baso # Seg Neutrophils % 87.5 H Seg Neuts % (Manual) Lymphocytes % (Manual) Monocytes % (Manual) Basophils % (Manual) Nucleated RBC % Seg Neutrophils # 14.1 H Seg Neutrophils # Man Lymphocytes # (Manual) Monocytes # (Manual) Eosinophils # (Manual) Basophils # (Manual) PT INR D-Dimer ABG pH 7.231 L ABG pO2 95.3 H ABG HCO3 ABG O2 Saturation ABG Base Excess -5.0 L ABG Hemoglobin 7.9 L Oxyhemoglobin 94.8 L Sodium Potassium Chloride 107.8 H Carbon Dioxide 21 L BUN 68 H Creatinine Glucose POC Glucose Lactic Acid Calcium Magnesium Iron TIBC Ferritin AST ALT Lactate Dehydrogenase Troponin T C-Reactive Protein Total Protein Albumin Prealbumin Cholesterol LDL Cholesterol Direct HDL Cholesterol Urine WBC (Auto) Vancomycin Trough Coronavirus (PCR) Crossmatch 07/17/19 07/17/19 07/17/19 05:28 12:11 18:48 WBC RBC Hgb Hct MCV MCH MCHC RDW Plt Count Lymph % (Auto) [place] % (Auto) Lymph # [place] # Baso # Seg Neutrophils % Seg Neuts % (Manual) Lymphocytes % (Manual) Monocytes % (Manual) Basophils % (Manual) Nucleated RBC % Seg Neutrophils # Seg Neutrophils # Man Lymphocytes # (Manual) Monocytes # (Manual) Eosinophils # (Manual) Basophils # (Manual) PT INR D-Dimer ABG pH ABG pO2 ABG HCO3 ABG O2 Saturation ABG Base Excess ABG Hemoglobin Oxyhemoglobin Sodium Potassium Chloride Carbon Dioxide BUN Creatinine Glucose POC Glucose 121 H 125 H 174 H Lactic Acid Calcium Magnesium Iron TIBC Ferritin AST ALT Lactate Dehydrogenase Troponin T C-Reactive Protein Total Protein Albumin Prealbumin Cholesterol LDL Cholesterol Direct HDL Cholesterol Urine WBC (Auto) Vancomycin Trough Coronavirus (PCR) Crossmatch 07/17/19 07/17/19 07/18/19 19:55 23:57 02:30 WBC RBC Hgb Hct MCV MCH MCHC RDW Plt Count Lymph % (Auto) [place] % (Auto) Lymph # [place] # Baso # Seg Neutrophils % Seg Neuts % (Manual) Lymphocytes % (Manual) Monocytes % (Manual) Basophils % (Manual) Nucleated RBC % Seg Neutrophils # Seg Neutrophils # Man Lymphocytes # (Manual) Monocytes # (Manual) Eosinophils # (Manual) Basophils # (Manual) PT INR D-Dimer ABG pH 7.344 L 7.294 L ABG pO2 78.5 L 119.2 H ABG HCO3 ABG O2 Saturation ABG Base Excess -3.3 L -2.6 L ABG Hemoglobin 8.6 L 8.1 L Oxyhemoglobin 94.8 L Sodium Potassium Chloride Carbon Dioxide BUN Creatinine Glucose POC Glucose 148 H Lactic Acid Calcium Magnesium Iron TIBC Ferritin AST ALT Lactate Dehydrogenase Troponin T C-Reactive Protein Total Protein Albumin Prealbumin Cholesterol LDL Cholesterol Direct HDL Cholesterol Urine WBC (Auto) Vancomycin Trough Coronavirus (PCR) Crossmatch 07/18/19 07/18/19 07/18/19 04:49 05:22 05:22 WBC 15.9 H RBC 3.00 L Hgb 8.1 L Hct 26.0 L MCV MCH 27 L MCHC 31 L RDW 19.4 H Plt Count 733 H Lymph % (Auto) 6.3 L [place] % (Auto) 7.4 H Lymph # 1.0 L [place] # 1.2 H Baso # 0.2 H Seg Neutrophils % 83.8 H Seg Neuts % (Manual) Lymphocytes % (Manual) Monocytes % (Manual) Basophils % (Manual) Nucleated RBC % Seg Neutrophils # 13.3 H Seg Neutrophils # Man Lymphocytes # (Manual) Monocytes # (Manual) Eosinophils # (Manual) Basophils # (Manual) PT INR D-Dimer ABG pH ABG pO2 ABG HCO3 ABG O2 Saturation ABG Base Excess ABG Hemoglobin Oxyhemoglobin Sodium Potassium Chloride 110.6 H Carbon Dioxide BUN 61 H Creatinine Glucose 109 H POC Glucose 116 H Lactic Acid Calcium Magnesium Iron TIBC Ferritin AST ALT Lactate Dehydrogenase Troponin T C-Reactive Protein Total Protein Albumin Prealbumin Cholesterol LDL Cholesterol Direct HDL Cholesterol Urine WBC (Auto) Vancomycin Trough Coronavirus (PCR) Crossmatch 07/18/19 07/18/19 07/18/19 12:23 18:06 22:20 WBC RBC Hgb Hct MCV MCH MCHC RDW Plt Count Lymph % (Auto) [place] % (Auto) Lymph # [place] # Baso # Seg Neutrophils % Seg Neuts % (Manual) Lymphocytes % (Manual) Monocytes % (Manual) Basophils % (Manual) Nucleated RBC % Seg Neutrophils # Seg Neutrophils # Man Lymphocytes # (Manual) Monocytes # (Manual) Eosinophils # (Manual) Basophils # (Manual) PT INR D-Dimer ABG pH 7.338 L ABG pO2 135.1 H ABG HCO3 ABG O2 Saturation ABG Base Excess ABG Hemoglobin 9.2 L Oxyhemoglobin Sodium Potassium Chloride Carbon Dioxide BUN Creatinine Glucose POC Glucose 114 H 113 H Lactic Acid Calcium Magnesium Iron TIBC Ferritin AST ALT Lactate Dehydrogenase Troponin T C-Reactive Protein Total Protein Albumin Prealbumin Cholesterol LDL Cholesterol Direct HDL Cholesterol Urine WBC (Auto) Vancomycin Trough Coronavirus (PCR) Crossmatch 07/18/19 07/19/19 07/19/19 23:33 03:45 05:18 WBC RBC Hgb Hct MCV MCH MCHC RDW Plt Count Lymph % (Auto) [place] % (Auto) Lymph # [place] # Baso # Seg Neutrophils % Seg Neuts % (Manual) Lymphocytes % (Manual) Monocytes % (Manual) Basophils % (Manual) Nucleated RBC % Seg Neutrophils # Seg Neutrophils # Man Lymphocytes # (Manual) Monocytes # (Manual) Eosinophils # (Manual) Basophils # (Manual) PT INR D-Dimer ABG pH 7.342 L ABG pO2 95.0 H ABG HCO3 ABG O2 Saturation ABG Base Excess ABG Hemoglobin 8.5 L Oxyhemoglobin Sodium Potassium Chloride Carbon Dioxide BUN Creatinine Glucose POC Glucose 125 H 111 H Lactic Acid Calcium Magnesium Iron TIBC Ferritin AST ALT Lactate Dehydrogenase Troponin T C-Reactive Protein Total Protein Albumin Prealbumin Cholesterol LDL Cholesterol Direct HDL Cholesterol Urine WBC (Auto) Vancomycin Trough Coronavirus (PCR) Crossmatch 07/19/19 07/19/19 07/19/19 08:45 08:45 11:47 WBC 15.9 H RBC 3.31 L Hgb 9.1 L Hct 28.4 L MCV MCH 27 L MCHC RDW 19.1 H Plt Count 858 H Lymph % (Auto) 4.9 L [place] % (Auto) 8.1 H Lymph # 0.8 L [place] # 1.3 H Baso # Seg Neutrophils % 85.5 H Seg Neuts % (Manual) Lymphocytes % (Manual) Monocytes % (Manual) Basophils % (Manual) Nucleated RBC % Seg Neutrophils # 13.6 H Seg Neutrophils # Man Lymphocytes # (Manual) Monocytes # (Manual) Eosinophils # (Manual) Basophils # (Manual) PT INR D-Dimer ABG pH ABG pO2 ABG HCO3 ABG O2 Saturation ABG Base Excess ABG Hemoglobin Oxyhemoglobin Sodium Potassium Chloride 111.6 H Carbon Dioxide BUN 50 H Creatinine 0.7 L Glucose 118 H POC Glucose 114 H Lactic Acid Calcium Magnesium Iron TIBC Ferritin AST ALT Lactate Dehydrogenase Troponin T C-Reactive Protein Total Protein Albumin Prealbumin Cholesterol LDL Cholesterol Direct HDL Cholesterol Urine WBC (Auto) Vancomycin Trough Coronavirus (PCR) Crossmatch 07/19/19 07/19/19 07/20/19 18:25 23:44 04:39 WBC RBC Hgb Hct MCV MCH MCHC RDW Plt Count Lymph % (Auto) [place] % (Auto) Lymph # [place] # Baso # Seg Neutrophils % Seg Neuts % (Manual) Lymphocytes % (Manual) Monocytes % (Manual) Basophils % (Manual) Nucleated RBC % Seg Neutrophils # Seg Neutrophils # Man Lymphocytes # (Manual) Monocytes # (Manual) Eosinophils # (Manual) Basophils # (Manual) PT INR D-Dimer ABG pH ABG pO2 ABG HCO3 ABG O2 Saturation ABG Base Excess ABG Hemoglobin Oxyhemoglobin Sodium Potassium Chloride 110.3 H Carbon Dioxide BUN 44 H Creatinine 0.6 L Glucose 120 H POC Glucose 115 H 117 H Lactic Acid Calcium Magnesium Iron TIBC Ferritin AST ALT Lactate Dehydrogenase Troponin T C-Reactive Protein Total Protein Albumin Prealbumin Cholesterol LDL Cholesterol Direct HDL Cholesterol Urine WBC (Auto) Vancomycin Trough Coronavirus (PCR) Crossmatch 07/20/19 07/21/19 07/21/19 05:30 11:59 17:40 WBC RBC Hgb Hct MCV MCH MCHC RDW Plt Count Lymph % (Auto) [place] % (Auto) Lymph # [place] # Baso # Seg Neutrophils % Seg Neuts % (Manual) Lymphocytes % (Manual) Monocytes % (Manual) Basophils % (Manual) Nucleated RBC % Seg Neutrophils # Seg Neutrophils # Man Lymphocytes # (Manual) Monocytes # (Manual) Eosinophils # (Manual) Basophils # (Manual) PT INR D-Dimer ABG pH ABG pO2 ABG HCO3 ABG O2 Saturation ABG Base Excess ABG Hemoglobin Oxyhemoglobin Sodium Potassium Chloride Carbon Dioxide BUN Creatinine Glucose POC Glucose 131 H 122 H 125 H Lactic Acid Calcium Magnesium Iron TIBC Ferritin AST ALT Lactate Dehydrogenase Troponin T C-Reactive Protein Total Protein Albumin Prealbumin Cholesterol LDL Cholesterol Direct HDL Cholesterol Urine WBC (Auto) Vancomycin Trough Coronavirus (PCR) Crossmatch 07/22/19 07/22/19 07/22/19 05:38 05:38 12:29 WBC 12.6 H RBC 3.19 L Hgb 8.9 L Hct 27.5 L MCV MCH MCHC RDW 18.9 H Plt Count 1101 H* Lymph % (Auto) [place] % (Auto) 12.2 H Lymph # [place] # 1.5 H Baso # Seg Neutrophils % 72.8 H Seg Neuts % (Manual) 76.0 H Lymphocytes % (Manual) 7.0 L Monocytes % (Manual) 14.0 H Basophils % (Manual) Nucleated RBC % 1.0 H Seg Neutrophils # 9.2 H Seg Neutrophils # Man 9.6 H Lymphocytes # (Manual) 0.9 L Monocytes # (Manual) 1.8 H Eosinophils # (Manual) Basophils # (Manual) PT INR D-Dimer ABG pH ABG pO2 ABG HCO3 ABG O2 Saturation ABG Base Excess ABG Hemoglobin Oxyhemoglobin Sodium Potassium 3.4 L Chloride Carbon Dioxide BUN 29 H Creatinine 0.5 L Glucose POC Glucose 116 H Lactic Acid Calcium Magnesium Iron TIBC Ferritin AST ALT Lactate Dehydrogenase Troponin T C-Reactive Protein Total Protein Albumin Prealbumin Cholesterol LDL Cholesterol Direct HDL Cholesterol Urine WBC (Auto) Vancomycin Trough Coronavirus (PCR) Crossmatch 07/22/19 07/22/19 07/23/19 18:20 23:51 04:52 WBC RBC Hgb Hct MCV MCH MCHC RDW Plt Count Lymph % (Auto) [place] % (Auto) Lymph # [place] # Baso # Seg Neutrophils % Seg Neuts % (Manual) Lymphocytes % (Manual) Monocytes % (Manual) Basophils % (Manual) Nucleated RBC % Seg Neutrophils # Seg Neutrophils # Man Lymphocytes # (Manual) Monocytes # (Manual) Eosinophils # (Manual) Basophils # (Manual) PT INR D-Dimer ABG pH ABG pO2 ABG HCO3 ABG O2 Saturation ABG Base Excess ABG Hemoglobin Oxyhemoglobin Sodium Potassium Chloride Carbon Dioxide BUN 24 H Creatinine 0.4 L Glucose POC Glucose 107 H 110 H Lactic Acid Calcium Magnesium Iron TIBC Ferritin AST ALT Lactate Dehydrogenase Troponin T C-Reactive Protein Total Protein Albumin Prealbumin Cholesterol LDL Cholesterol Direct HDL Cholesterol Urine WBC (Auto) Vancomycin Trough Coronavirus (PCR) Crossmatch 07/23/19 07/23/19 07/24/19 06:00 23:15 04:40 WBC RBC Hgb Hct MCV MCH MCHC RDW Plt Count Lymph % (Auto) [place] % (Auto) Lymph # [place] # Baso # Seg Neutrophils % Seg Neuts % (Manual) Lymphocytes % (Manual) Monocytes % (Manual) Basophils % (Manual) Nucleated RBC % Seg Neutrophils # Seg Neutrophils # Man Lymphocytes # (Manual) Monocytes # (Manual) Eosinophils # (Manual) Basophils # (Manual) PT INR D-Dimer ABG pH ABG pO2 73.5 L ABG HCO3 27.0 H 28.5 H ABG O2 Saturation 94.5 L ABG Base Excess ABG Hemoglobin 9.4 L 8.9 L Oxyhemoglobin 94.0 L 92.7 L Sodium Potassium Chloride Carbon Dioxide BUN Creatinine Glucose POC Glucose 117 H Lactic Acid Calcium Magnesium Iron TIBC Ferritin AST ALT Lactate Dehydrogenase Troponin T C-Reactive Protein Total Protein Albumin Prealbumin Cholesterol LDL Cholesterol Direct HDL Cholesterol Urine WBC (Auto) Vancomycin Trough Coronavirus (PCR) Crossmatch 07/24/19 07/24/19 07/25/19 05:25 12:06 00:16 WBC RBC Hgb Hct MCV MCH MCHC RDW Plt Count Lymph % (Auto) [place] % (Auto) Lymph # [place] # Baso # Seg Neutrophils % Seg Neuts % (Manual) Lymphocytes % (Manual) Monocytes % (Manual) Basophils % (Manual) Nucleated RBC % Seg Neutrophils # Seg Neutrophils # Man Lymphocytes # (Manual) Monocytes # (Manual) Eosinophils # (Manual) Basophils # (Manual) PT INR D-Dimer ABG pH ABG pO2 ABG HCO3 ABG O2 Saturation ABG Base Excess ABG Hemoglobin Oxyhemoglobin Sodium Potassium Chloride Carbon Dioxide BUN Creatinine Glucose POC Glucose 114 H 108 H 106 H Lactic Acid Calcium Magnesium Iron TIBC Ferritin AST ALT Lactate Dehydrogenase Troponin T C-Reactive Protein Total Protein Albumin Prealbumin Cholesterol LDL Cholesterol Direct HDL Cholesterol Urine WBC (Auto) Vancomycin Trough Coronavirus (PCR) Crossmatch 07/25/19 07/25/19 07/25/19 05:14 05:14 05:17 WBC 17.8 H RBC 3.32 L Hgb 9.2 L Hct 28.6 L MCV MCH MCHC RDW 19.9 H Plt Count 994 H Lymph % (Auto) [place] % (Auto) Lymph # [place] # Baso # Seg Neutrophils % Seg Neuts % (Manual) 82.0 H Lymphocytes % (Manual) 5.0 L Monocytes % (Manual) Basophils % (Manual) Nucleated RBC % Seg Neutrophils # Seg Neutrophils # Man 14.6 H Lymphocytes # (Manual) 0.9 L Monocytes # (Manual) 1.2 H Eosinophils # (Manual) Basophils # (Manual) PT INR D-Dimer ABG pH ABG pO2 ABG HCO3 ABG O2 Saturation ABG Base Excess ABG Hemoglobin Oxyhemoglobin Sodium Potassium Chloride Carbon Dioxide BUN Creatinine 0.4 L Glucose 110 H POC Glucose 107 H Lactic Acid Calcium Magnesium Iron TIBC Ferritin AST ALT Lactate Dehydrogenase Troponin T C-Reactive Protein Total Protein Albumin Prealbumin Cholesterol LDL Cholesterol Direct HDL Cholesterol Urine WBC (Auto) Vancomycin Trough Coronavirus (PCR) Crossmatch 07/25/19 07/25/19 07/26/19 11:55 23:49 06:01 WBC RBC Hgb Hct MCV MCH MCHC RDW Plt Count Lymph % (Auto) [place] % (Auto) Lymph # [place] # Baso # Seg Neutrophils % Seg Neuts % (Manual) Lymphocytes % (Manual) Monocytes % (Manual) Basophils % (Manual) Nucleated RBC % Seg Neutrophils # Seg Neutrophils # Man Lymphocytes # (Manual) Monocytes # (Manual) Eosinophils # (Manual) Basophils # (Manual) PT INR D-Dimer ABG pH ABG pO2 ABG HCO3 ABG O2 Saturation ABG Base Excess ABG Hemoglobin Oxyhemoglobin Sodium Potassium Chloride Carbon Dioxide BUN Creatinine Glucose POC Glucose 123 H 118 H 106 H Lactic Acid Calcium Magnesium Iron TIBC Ferritin AST ALT Lactate Dehydrogenase Troponin T C-Reactive Protein Total Protein Albumin Prealbumin Cholesterol LDL Cholesterol Direct HDL Cholesterol Urine WBC (Auto) Vancomycin Trough Coronavirus (PCR) Crossmatch 07/26/19 07/27/19 07/27/19 17:02 00:28 05:16 WBC RBC Hgb Hct MCV MCH MCHC RDW Plt Count Lymph % (Auto) [place] % (Auto) Lymph # [place] # Baso # Seg Neutrophils % Seg Neuts % (Manual) Lymphocytes % (Manual) Monocytes % (Manual) Basophils % (Manual) Nucleated RBC % Seg Neutrophils # Seg Neutrophils # Man Lymphocytes # (Manual) Monocytes # (Manual) Eosinophils # (Manual) Basophils # (Manual) PT INR D-Dimer ABG pH ABG pO2 63.4 L ABG HCO3 31.3 H ABG O2 Saturation 92.7 L ABG Base Excess 6.3 H ABG Hemoglobin 7.6 L Oxyhemoglobin 90.9 L Sodium Potassium Chloride Carbon Dioxide BUN Creatinine Glucose POC Glucose 116 H 158 H Lactic Acid Calcium Magnesium Iron TIBC Ferritin AST ALT Lactate Dehydrogenase Troponin T C-Reactive Protein Total Protein Albumin Prealbumin Cholesterol LDL Cholesterol Direct HDL Cholesterol Urine WBC (Auto) Vancomycin Trough Coronavirus (PCR) Crossmatch 07/28/19 07/28/19 07/28/19 10:13 10:13 23:54 WBC 18.5 H RBC 3.20 L Hgb 8.8 L Hct 26.8 L MCV MCH 27 L MCHC RDW 19.9 H Plt Count 730 H Lymph % (Auto) [place] % (Auto) Lymph # [place] # Baso # Seg Neutrophils % Seg Neuts % (Manual) Lymphocytes % (Manual) Monocytes % (Manual) Basophils % (Manual) Nucleated RBC % Seg Neutrophils # Seg Neutrophils # Man Lymphocytes # (Manual) Monocytes # (Manual) Eosinophils # (Manual) Basophils # (Manual) PT INR D-Dimer ABG pH ABG pO2 ABG HCO3 ABG O2 Saturation ABG Base Excess ABG Hemoglobin Oxyhemoglobin Sodium Potassium 3.2 L Chloride 97.5 L Carbon Dioxide 31 H BUN Creatinine 0.5 L Glucose POC Glucose 120 H Lactic Acid Calcium Magnesium Iron TIBC Ferritin AST ALT Lactate Dehydrogenase Troponin T C-Reactive Protein Total Protein Albumin Prealbumin Cholesterol LDL Cholesterol Direct HDL Cholesterol Urine WBC (Auto) Vancomycin Trough Coronavirus (PCR) Crossmatch 07/29/19 07/29/19 07/29/19 11:57 17:43 Unknown WBC RBC Hgb Hct MCV MCH MCHC RDW Plt Count Lymph % (Auto) [place] % (Auto) Lymph # [place] # Baso # Seg Neutrophils % Seg Neuts % (Manual) Lymphocytes % (Manual) Monocytes % (Manual) Basophils % (Manual) Nucleated RBC % Seg Neutrophils # Seg Neutrophils # Man Lymphocytes # (Manual) Monocytes # (Manual) Eosinophils # (Manual) Basophils # (Manual) PT INR D-Dimer ABG pH ABG pO2 ABG HCO3 ABG O2 Saturation ABG Base Excess ABG Hemoglobin Oxyhemoglobin Sodium Potassium Chloride Carbon Dioxide BUN Creatinine Glucose POC Glucose 112 H Lactic Acid Calcium Magnesium Iron TIBC Ferritin AST ALT Lactate Dehydrogenase Troponin T C-Reactive Protein Total Protein Albumin Prealbumin Cholesterol LDL Cholesterol Direct HDL Cholesterol Urine WBC (Auto) 63.0 H Vancomycin Trough Coronavirus (PCR) Positive A Crossmatch 07/30/19 07/30/19 07/30/19 00:20 04:35 04:35 WBC 24.3 H RBC 3.12 L Hgb 8.5 L Hct 26.3 L MCV MCH 27 L MCHC RDW 20.2 H Plt Count 550 H Lymph % (Auto) [place] % (Auto) Lymph # [place] # Baso # Seg Neutrophils % Seg Neuts % (Manual) Lymphocytes % (Manual) Monocytes % (Manual) Basophils % (Manual) Nucleated RBC % Seg Neutrophils # Seg Neutrophils # Man Lymphocytes # (Manual) Monocytes # (Manual) Eosinophils # (Manual) Basophils # (Manual) PT INR D-Dimer ABG pH ABG pO2 ABG HCO3 ABG O2 Saturation ABG Base Excess ABG Hemoglobin Oxyhemoglobin Sodium Potassium 3.0 L Chloride 96.3 L Carbon Dioxide 32 H BUN Creatinine 0.5 L Glucose POC Glucose 106 H Lactic Acid Calcium Magnesium Iron TIBC Ferritin AST ALT Lactate Dehydrogenase Troponin T C-Reactive Protein Total Protein Albumin Prealbumin Cholesterol LDL Cholesterol Direct HDL Cholesterol Urine WBC (Auto) Vancomycin Trough Coronavirus (PCR) Crossmatch 07/31/19 07/31/19 07/31/19 04:42 04:42 11:33 WBC 23.8 H RBC 3.10 L Hgb 8.4 L Hct 26.1 L MCV MCH 27 L MCHC RDW 19.6 H Plt Count 561 H Lymph % (Auto) [place] % (Auto) Lymph # [place] # Baso # Seg Neutrophils % Seg Neuts % (Manual) Lymphocytes % (Manual) Monocytes % (Manual) Basophils % (Manual) Nucleated RBC % Seg Neutrophils # Seg Neutrophils # Man Lymphocytes # (Manual) Monocytes # (Manual) Eosinophils # (Manual) Basophils # (Manual) PT INR D-Dimer ABG pH ABG pO2 ABG HCO3 ABG O2 Saturation ABG Base Excess ABG Hemoglobin Oxyhemoglobin Sodium 135 L Potassium Chloride 93.9 L Carbon Dioxide 32 H BUN Creatinine 0.4 L Glucose POC Glucose 116 H Lactic Acid Calcium Magnesium Iron TIBC Ferritin AST ALT Lactate Dehydrogenase Troponin T C-Reactive Protein Total Protein Albumin 1.6 L Prealbumin 0.037 L Cholesterol LDL Cholesterol Direct HDL Cholesterol Urine WBC (Auto) Vancomycin Trough Coronavirus (PCR) Crossmatch 07/31/19 08/01/19 08/01/19 23:33 04:57 04:57 WBC 26.7 H RBC 3.12 L Hgb 8.5 L Hct 26.3 L MCV MCH 27 L MCHC RDW 19.2 H Plt Count 602 H Lymph % (Auto) [place] % (Auto) Lymph # [place] # Baso # Seg Neutrophils % Seg Neuts % (Manual) 93.0 H Lymphocytes % (Manual) 2.0 L Monocytes % (Manual) Basophils % (Manual) Nucleated RBC % Seg Neutrophils # Seg Neutrophils # Man 24.8 H Lymphocytes # (Manual) 0.5 L Monocytes # (Manual) 1.1 H Eosinophils # (Manual) Basophils # (Manual) PT INR D-Dimer ABG pH ABG pO2 ABG HCO3 ABG O2 Saturation ABG Base Excess ABG Hemoglobin Oxyhemoglobin Sodium 132 L Potassium Chloride 93.8 L Carbon Dioxide 31 H BUN Creatinine 0.3 L Glucose POC Glucose 148 H Lactic Acid Calcium 8.1 L Magnesium Iron TIBC Ferritin AST ALT Lactate Dehydrogenase Troponin T C-Reactive Protein Total Protein Albumin Prealbumin Cholesterol LDL Cholesterol Direct HDL Cholesterol Urine WBC (Auto) Vancomycin Trough Coronavirus (PCR) Crossmatch 08/01/19 08/02/19 08/02/19 12:16 00:22 05:24 WBC RBC Hgb Hct MCV MCH MCHC RDW Plt Count Lymph % (Auto) [place] % (Auto) Lymph # [place] # Baso # Seg Neutrophils % Seg Neuts % (Manual) Lymphocytes % (Manual) Monocytes % (Manual) Basophils % (Manual) Nucleated RBC % Seg Neutrophils # Seg Neutrophils # Man Lymphocytes # (Manual) Monocytes # (Manual) Eosinophils # (Manual) Basophils # (Manual) PT INR D-Dimer ABG pH ABG pO2 ABG HCO3 ABG O2 Saturation ABG Base Excess ABG Hemoglobin Oxyhemoglobin Sodium Potassium Chloride Carbon Dioxide BUN Creatinine Glucose POC Glucose 120 H 119 H 113 H Lactic Acid Calcium Magnesium Iron TIBC Ferritin AST ALT Lactate Dehydrogenase Troponin T C-Reactive Protein Total Protein Albumin Prealbumin Cholesterol LDL Cholesterol Direct HDL Cholesterol Urine WBC (Auto) Vancomycin Trough Coronavirus (PCR) Crossmatch 08/03/19 08/03/19 08/03/19 05:20 12:01 23:48 WBC RBC Hgb Hct MCV MCH MCHC RDW Plt Count Lymph % (Auto) [place] % (Auto) Lymph # [place] # Baso # Seg Neutrophils % Seg Neuts % (Manual) Lymphocytes % (Manual) Monocytes % (Manual) Basophils % (Manual) Nucleated RBC % Seg Neutrophils # Seg Neutrophils # Man Lymphocytes # (Manual) Monocytes # (Manual) Eosinophils # (Manual) Basophils # (Manual) PT INR D-Dimer ABG pH ABG pO2 ABG HCO3 ABG O2 Saturation ABG Base Excess ABG Hemoglobin Oxyhemoglobin Sodium Potassium Chloride Carbon Dioxide BUN Creatinine Glucose POC Glucose 118 H 106 H 120 H Lactic Acid Calcium Magnesium Iron TIBC Ferritin AST ALT Lactate Dehydrogenase Troponin T C-Reactive Protein Total Protein Albumin Prealbumin Cholesterol LDL Cholesterol Direct HDL Cholesterol Urine WBC (Auto) Vancomycin Trough Coronavirus (PCR) Crossmatch 08/04/19 08/04/19 08/04/19 05:38 05:38 06:29 WBC 26.1 H RBC 2.77 L Hgb 7.5 L Hct 23.2 L MCV MCH 27 L MCHC RDW 19.2 H Plt Count 648 H Lymph % (Auto) [place] % (Auto) Lymph # [place] # Baso # Seg Neutrophils % Seg Neuts % (Manual) 90.5 H Lymphocytes % (Manual) 3.5 L Monocytes % (Manual) Basophils % (Manual) Nucleated RBC % Seg Neutrophils # Seg Neutrophils # Man 23.6 H Lymphocytes # (Manual) 0.9 L Monocytes # (Manual) 1.2 H Eosinophils # (Manual) Basophils # (Manual) PT INR D-Dimer ABG pH ABG pO2 ABG HCO3 ABG O2 Saturation ABG Base Excess ABG Hemoglobin Oxyhemoglobin Sodium 132 L Potassium 3.4 L D Chloride 92.7 L Carbon Dioxide 33 H BUN Creatinine 0.2 L Glucose POC Glucose 108 H Lactic Acid Calcium 8.1 L Magnesium Iron TIBC Ferritin AST ALT Lactate Dehydrogenase Troponin T C-Reactive Protein Total Protein Albumin Prealbumin Cholesterol LDL Cholesterol Direct HDL Cholesterol Urine WBC (Auto) Vancomycin Trough Coronavirus (PCR) Crossmatch 08/04/19 08/05/19 08/05/19 12:30 04:58 04:58 WBC 21.0 H RBC 2.63 L Hgb 7.2 L Hct 21.9 L MCV 83 L MCH 27 L MCHC RDW 18.9 H Plt Count 691 H Lymph % (Auto) [place] % (Auto) Lymph # [place] # Baso # Seg Neutrophils % Seg Neuts % (Manual) 86.0 H Lymphocytes % (Manual) 3.0 L Monocytes % (Manual) 10.0 H Basophils % (Manual) Nucleated RBC % Seg Neutrophils # Seg Neutrophils # Man 18.1 H Lymphocytes # (Manual) 0.6 L Monocytes # (Manual) 2.1 H Eosinophils # (Manual) Basophils # (Manual) PT INR D-Dimer ABG pH ABG pO2 ABG HCO3 ABG O2 Saturation ABG Base Excess ABG Hemoglobin Oxyhemoglobin Sodium 134 L Potassium 3.2 L Chloride 93.2 L Carbon Dioxide 34 H BUN 8 L Creatinine 0.3 L Glucose POC Glucose 138 H Lactic Acid Calcium 8.1 L Magnesium Iron TIBC Ferritin AST ALT Lactate Dehydrogenase Troponin T C-Reactive Protein Total Protein Albumin Prealbumin Cholesterol LDL Cholesterol Direct HDL Cholesterol Urine WBC (Auto) Vancomycin Trough Coronavirus (PCR) Crossmatch 08/05/19 08/05/19 08/05/19 11:53 17:57 23:58 WBC RBC Hgb Hct MCV MCH MCHC RDW Plt Count Lymph % (Auto) [place] % (Auto) Lymph # [place] # Baso # Seg Neutrophils % Seg Neuts % (Manual) Lymphocytes % (Manual) Monocytes % (Manual) Basophils % (Manual) Nucleated RBC % Seg Neutrophils # Seg Neutrophils # Man Lymphocytes # (Manual) Monocytes # (Manual) Eosinophils # (Manual) Basophils # (Manual) PT INR D-Dimer ABG pH ABG pO2 ABG HCO3 ABG O2 Saturation ABG Base Excess ABG Hemoglobin Oxyhemoglobin Sodium Potassium Chloride Carbon Dioxide BUN Creatinine Glucose POC Glucose 106 H 111 H 116 H Lactic Acid Calcium Magnesium Iron TIBC Ferritin AST ALT Lactate Dehydrogenase Troponin T C-Reactive Protein Total Protein Albumin Prealbumin Cholesterol LDL Cholesterol Direct HDL Cholesterol Urine WBC (Auto) Vancomycin Trough Coronavirus (PCR) Crossmatch 08/06/19 08/06/19 08/06/19 04:11 04:11 06:04 WBC 20.8 H RBC 2.80 L Hgb 7.6 L Hct 23.5 L MCV MCH 27 L MCHC RDW 19.0 H Plt Count 723 H Lymph % (Auto) [place] % (Auto) Lymph # [place] # Baso # Seg Neutrophils % Seg Neuts % (Manual) 88.0 H Lymphocytes % (Manual) 3.0 L Monocytes % (Manual) Basophils % (Manual) Nucleated RBC % Seg Neutrophils # Seg Neutrophils # Man 18.3 H Lymphocytes # (Manual) 0.6 L Monocytes # (Manual) Eosinophils # (Manual) Basophils # (Manual) 0.2 H PT INR D-Dimer ABG pH ABG pO2 ABG HCO3 ABG O2 Saturation ABG Base Excess ABG Hemoglobin Oxyhemoglobin Sodium Potassium 3.4 L Chloride 95.2 L Carbon Dioxide 32 H BUN Creatinine 0.3 L Glucose POC Glucose 108 H Lactic Acid Calcium 8.2 L Magnesium Iron TIBC Ferritin AST ALT Lactate Dehydrogenase Troponin T C-Reactive Protein Total Protein Albumin Prealbumin Cholesterol LDL Cholesterol Direct HDL Cholesterol Urine WBC (Auto) Vancomycin Trough Coronavirus (PCR) Crossmatch 08/06/19 08/06/19 08/07/19 12:23 17:13 00:21 WBC RBC Hgb Hct MCV MCH MCHC RDW Plt Count Lymph % (Auto) [place] % (Auto) Lymph # [place] # Baso # Seg Neutrophils % Seg Neuts % (Manual) Lymphocytes % (Manual) Monocytes % (Manual) Basophils % (Manual) Nucleated RBC % Seg Neutrophils # Seg Neutrophils # Man Lymphocytes # (Manual) Monocytes # (Manual) Eosinophils # (Manual) Basophils # (Manual) PT INR D-Dimer ABG pH ABG pO2 ABG HCO3 ABG O2 Saturation ABG Base Excess ABG Hemoglobin Oxyhemoglobin Sodium Potassium Chloride Carbon Dioxide BUN Creatinine Glucose POC Glucose 112 H 132 H 147 H Lactic Acid Calcium Magnesium Iron TIBC Ferritin AST ALT Lactate Dehydrogenase Troponin T C-Reactive Protein Total Protein Albumin Prealbumin Cholesterol LDL Cholesterol Direct HDL Cholesterol Urine WBC (Auto) Vancomycin Trough Coronavirus (PCR) Crossmatch 08/07/19 08/07/19 08/07/19 05:16 05:23 05:23 WBC 30.3 H RBC 2.69 L Hgb 7.1 L Hct 22.2 L MCV 83 L MCH 27 L MCHC RDW 19.1 H Plt Count 650 H Lymph % (Auto) [place] % (Auto) Lymph # [place] # Baso # Seg Neutrophils % Seg Neuts % (Manual) 88.0 H Lymphocytes % (Manual) 5.0 L Monocytes % (Manual) Basophils % (Manual) Nucleated RBC % Seg Neutrophils # Seg Neutrophils # Man 26.7 H Lymphocytes # (Manual) Monocytes # (Manual) 2.1 H Eosinophils # (Manual) Basophils # (Manual) PT INR D-Dimer ABG pH ABG pO2 ABG HCO3 ABG O2 Saturation ABG Base Excess ABG Hemoglobin Oxyhemoglobin Sodium 135 L Potassium 3.4 L Chloride 95.4 L Carbon Dioxide 32 H BUN Creatinine 0.4 L Glucose 120 H POC Glucose 120 H Lactic Acid Calcium 7.7 L Magnesium Iron TIBC Ferritin AST ALT Lactate Dehydrogenase Troponin T C-Reactive Protein Total Protein Albumin Prealbumin Cholesterol LDL Cholesterol Direct HDL Cholesterol Urine WBC (Auto) Vancomycin Trough Coronavirus (PCR) Crossmatch 08/07/19 08/07/19 08/07/19 10:24 10:24 11:10 WBC RBC Hgb Hct MCV MCH MCHC RDW Plt Count Lymph % (Auto) [place] % (Auto) Lymph # [place] # Baso # Seg Neutrophils % Seg Neuts % (Manual) Lymphocytes % (Manual) Monocytes % (Manual) Basophils % (Manual) Nucleated RBC % Seg Neutrophils # Seg Neutrophils # Man Lymphocytes # (Manual) Monocytes # (Manual) Eosinophils # (Manual) Basophils # (Manual) PT INR D-Dimer 1808.06 H ABG pH ABG pO2 73.3 L ABG HCO3 33.9 H ABG O2 Saturation ABG Base Excess 9.0 H ABG Hemoglobin 6.3 L Oxyhemoglobin 94.3 L Sodium Potassium Chloride Carbon Dioxide BUN Creatinine Glucose POC Glucose Lactic Acid Calcium Magnesium Iron TIBC Ferritin AST ALT Lactate Dehydrogenase Troponin T C-Reactive Protein 11.10 H Total Protein Albumin Prealbumin Cholesterol LDL Cholesterol Direct HDL Cholesterol Urine WBC (Auto) Vancomycin Trough Coronavirus (PCR) Crossmatch 08/07/19 08/08/19 08/08/19 12:01 04:41 04:41 WBC 22.1 H RBC 2.82 L Hgb 7.7 L Hct 23.6 L MCV MCH 27 L MCHC RDW 19.1 H Plt Count 722 H Lymph % (Auto) [place] % (Auto) Lymph # [place] # Baso # Seg Neutrophils % Seg Neuts % (Manual) 90.0 H Lymphocytes % (Manual) 3.0 L Monocytes % (Manual) Basophils % (Manual) Nucleated RBC % Seg Neutrophils # Seg Neutrophils # Man 19.9 H Lymphocytes # (Manual) 0.7 L Monocytes # (Manual) 1.3 H Eosinophils # (Manual) Basophils # (Manual) PT INR D-Dimer ABG pH ABG pO2 ABG HCO3 ABG O2 Saturation ABG Base Excess ABG Hemoglobin Oxyhemoglobin Sodium 136 L Potassium Chloride 97.8 L Carbon Dioxide BUN Creatinine 0.3 L Glucose 105 H POC Glucose 130 H Lactic Acid Calcium 7.8 L Magnesium Iron TIBC Ferritin AST ALT Lactate Dehydrogenase Troponin T C-Reactive Protein Total Protein Albumin Prealbumin Cholesterol LDL Cholesterol Direct HDL Cholesterol Urine WBC (Auto) Vancomycin Trough Coronavirus (PCR) Crossmatch 08/08/19 08/08/19 08/09/19 11:46 18:35 00:12 WBC RBC Hgb Hct MCV MCH MCHC RDW Plt Count Lymph % (Auto) [place] % (Auto) Lymph # [place] # Baso # Seg Neutrophils % Seg Neuts % (Manual) Lymphocytes % (Manual) Monocytes % (Manual) Basophils % (Manual) Nucleated RBC % Seg Neutrophils # Seg Neutrophils # Man Lymphocytes # (Manual) Monocytes # (Manual) Eosinophils # (Manual) Basophils # (Manual) PT INR D-Dimer ABG pH ABG pO2 ABG HCO3 ABG O2 Saturation ABG Base Excess ABG Hemoglobin Oxyhemoglobin Sodium Potassium Chloride Carbon Dioxide BUN Creatinine Glucose POC Glucose 117 H 117 H 117 H Lactic Acid Calcium Magnesium Iron TIBC Ferritin AST ALT Lactate Dehydrogenase Troponin T C-Reactive Protein Total Protein Albumin Prealbumin Cholesterol LDL Cholesterol Direct HDL Cholesterol Urine WBC (Auto) Vancomycin Trough Coronavirus (PCR) Crossmatch 08/09/19 08/09/19 08/09/19 05:33 12:22 17:48 WBC RBC Hgb Hct MCV MCH MCHC RDW Plt Count Lymph % (Auto) [place] % (Auto) Lymph # [place] # Baso # Seg Neutrophils % Seg Neuts % (Manual) Lymphocytes % (Manual) Monocytes % (Manual) Basophils % (Manual) Nucleated RBC % Seg Neutrophils # Seg Neutrophils # Man Lymphocytes # (Manual) Monocytes # (Manual) Eosinophils # (Manual) Basophils # (Manual) PT INR D-Dimer ABG pH ABG pO2 ABG HCO3 ABG O2 Saturation ABG Base Excess ABG Hemoglobin Oxyhemoglobin Sodium Potassium Chloride Carbon Dioxide BUN Creatinine Glucose POC Glucose 119 H 133 H 123 H Lactic Acid Calcium Magnesium Iron TIBC Ferritin AST ALT Lactate Dehydrogenase Troponin T C-Reactive Protein Total Protein Albumin Prealbumin Cholesterol LDL Cholesterol Direct HDL Cholesterol Urine WBC (Auto) Vancomycin Trough Coronavirus (PCR) Crossmatch 08/09/19 08/09/19 08/10/19 17:59 18:15 00:02 WBC RBC Hgb 6.7 L Hct 20.4 L MCV MCH MCHC RDW Plt Count Lymph % (Auto) [place] % (Auto) Lymph # [place] # Baso # Seg Neutrophils % Seg Neuts % (Manual) Lymphocytes % (Manual) Monocytes % (Manual) Basophils % (Manual) Nucleated RBC % Seg Neutrophils # Seg Neutrophils # Man Lymphocytes # (Manual) Monocytes # (Manual) Eosinophils # (Manual) Basophils # (Manual) PT INR D-Dimer ABG pH ABG pO2 ABG HCO3 ABG O2 Saturation ABG Base Excess ABG Hemoglobin Oxyhemoglobin Sodium Potassium Chloride Carbon Dioxide BUN Creatinine Glucose POC Glucose 124 H Lactic Acid Calcium Magnesium Iron TIBC Ferritin AST ALT Lactate Dehydrogenase Troponin T C-Reactive Protein Total Protein Albumin Prealbumin Cholesterol LDL Cholesterol Direct HDL Cholesterol Urine WBC (Auto) Vancomycin Trough Coronavirus (PCR) Crossmatch See Detail 08/10/19 08/10/19 08/10/19 05:47 08:00 08:00 WBC 16.9 H RBC 2.94 L Hgb 8.2 L Hct 24.9 L MCV MCH MCHC RDW 17.0 H Plt Count 661 H Lymph % (Auto) [place] % (Auto) Lymph # [place] # Baso # Seg Neutrophils % Seg Neuts % (Manual) Lymphocytes % (Manual) Monocytes % (Manual) Basophils % (Manual) Nucleated RBC % Seg Neutrophils # Seg Neutrophils # Man Lymphocytes # (Manual) Monocytes # (Manual) Eosinophils # (Manual) Basophils # (Manual) PT INR D-Dimer ABG pH ABG pO2 ABG HCO3 ABG O2 Saturation ABG Base Excess ABG Hemoglobin Oxyhemoglobin Sodium Potassium Chloride Carbon Dioxide BUN Creatinine 0.3 L Glucose 116 H POC Glucose 148 H Lactic Acid Calcium 7.7 L Magnesium Iron TIBC Ferritin AST ALT Lactate Dehydrogenase Troponin T C-Reactive Protein Total Protein Albumin Prealbumin Cholesterol LDL Cholesterol Direct HDL Cholesterol Urine WBC (Auto) Vancomycin Trough Coronavirus (PCR) Crossmatch 08/10/19 08/10/19 08/10/19 12:38 18:06 23:56 WBC RBC Hgb Hct MCV MCH MCHC RDW Plt Count Lymph % (Auto) [place] % (Auto) Lymph # [place] # Baso # Seg Neutrophils % Seg Neuts % (Manual) Lymphocytes % (Manual) Monocytes % (Manual) Basophils % (Manual) Nucleated RBC % Seg Neutrophils # Seg Neutrophils # Man Lymphocytes # (Manual) Monocytes # (Manual) Eosinophils # (Manual) Basophils # (Manual) PT INR D-Dimer ABG pH ABG pO2 ABG HCO3 ABG O2 Saturation ABG Base Excess ABG Hemoglobin Oxyhemoglobin Sodium Potassium Chloride Carbon Dioxide BUN Creatinine Glucose POC Glucose 113 H 126 H 115 H Lactic Acid Calcium Magnesium Iron TIBC Ferritin AST ALT Lactate Dehydrogenase Troponin T C-Reactive Protein Total Protein Albumin Prealbumin Cholesterol LDL Cholesterol Direct HDL Cholesterol Urine WBC (Auto) Vancomycin Trough Coronavirus (PCR) Crossmatch 08/10/19 08/11/19 08/12/19 Unknown 18:10 03:30 WBC 14.4 H RBC 2.58 L Hgb 7.4 L Hct 22.1 L MCV MCH MCHC RDW 17.4 H Plt Count 786 H Lymph % (Auto) [place] % (Auto) Lymph # [place] # Baso # Seg Neutrophils % Seg Neuts % (Manual) Lymphocytes % (Manual) Monocytes % (Manual) Basophils % (Manual) Nucleated RBC % Seg Neutrophils # Seg Neutrophils # Man Lymphocytes # (Manual) Monocytes # (Manual) Eosinophils # (Manual) Basophils # (Manual) PT INR D-Dimer ABG pH ABG pO2 ABG HCO3 ABG O2 Saturation ABG Base Excess ABG Hemoglobin Oxyhemoglobin Sodium Potassium Chloride Carbon Dioxide BUN Creatinine Glucose POC Glucose 106 H Lactic Acid Calcium Magnesium Iron TIBC Ferritin AST ALT Lactate Dehydrogenase Troponin T C-Reactive Protein Total Protein Albumin Prealbumin Cholesterol LDL Cholesterol Direct HDL Cholesterol Urine WBC (Auto) Vancomycin Trough Coronavirus (PCR) Positive A Crossmatch 08/12/19 08/12/19 08/13/19 03:30 12:08 05:25 WBC RBC Hgb Hct MCV MCH MCHC RDW Plt Count Lymph % (Auto) [place] % (Auto) Lymph # [place] # Baso # Seg Neutrophils % Seg Neuts % (Manual) Lymphocytes % (Manual) Monocytes % (Manual) Basophils % (Manual) Nucleated RBC % Seg Neutrophils # Seg Neutrophils # Man Lymphocytes # (Manual) Monocytes # (Manual) Eosinophils # (Manual) Basophils # (Manual) PT INR D-Dimer ABG pH ABG pO2 ABG HCO3 ABG O2 Saturation ABG Base Excess ABG Hemoglobin Oxyhemoglobin Sodium Potassium Chloride Carbon Dioxide BUN 7 L Creatinine 0.3 L Glucose 117 H POC Glucose 112 H 126 H Lactic Acid Calcium 7.8 L Magnesium Iron TIBC Ferritin AST ALT Lactate Dehydrogenase Troponin T C-Reactive Protein Total Protein Albumin Prealbumin Cholesterol LDL Cholesterol Direct HDL Cholesterol Urine WBC (Auto) Vancomycin Trough Coronavirus (PCR) Crossmatch 08/13/19 08/13/19 08/13/19 11:36 17:10 19:06 WBC RBC Hgb Hct MCV MCH MCHC RDW Plt Count Lymph % (Auto) [place] % (Auto) Lymph # [place] # Baso # Seg Neutrophils % Seg Neuts % (Manual) Lymphocytes % (Manual) Monocytes % (Manual) Basophils % (Manual) Nucleated RBC % Seg Neutrophils # Seg Neutrophils # Man Lymphocytes # (Manual) Monocytes # (Manual) Eosinophils # (Manual) Basophils # (Manual) PT INR D-Dimer ABG pH ABG pO2 105.0 H ABG HCO3 28.5 H ABG O2 Saturation ABG Base Excess 3.5 H ABG Hemoglobin 7.8 L Oxyhemoglobin Sodium Potassium Chloride Carbon Dioxide BUN Creatinine Glucose POC Glucose 143 H 107 H Lactic Acid Calcium Magnesium Iron TIBC Ferritin AST ALT Lactate Dehydrogenase Troponin T C-Reactive Protein Total Protein Albumin Prealbumin Cholesterol LDL Cholesterol Direct HDL Cholesterol Urine WBC (Auto) Vancomycin Trough Coronavirus (PCR) Crossmatch 08/13/19 08/14/19 08/14/19 23:23 05:00 05:00 WBC 14.3 H RBC 2.76 L Hgb 7.8 L Hct 23.9 L MCV MCH MCHC RDW 18.7 H Plt Count 896 H Lymph % (Auto) [place] % (Auto) Lymph # [place] # Baso # Seg Neutrophils % Seg Neuts % (Manual) Lymphocytes % (Manual) Monocytes % (Manual) Basophils % (Manual) Nucleated RBC % Seg Neutrophils # Seg Neutrophils # Man Lymphocytes # (Manual) Monocytes # (Manual) Eosinophils # (Manual) Basophils # (Manual) PT INR D-Dimer ABG pH ABG pO2 ABG HCO3 ABG O2 Saturation ABG Base Excess ABG Hemoglobin Oxyhemoglobin Sodium Potassium Chloride Carbon Dioxide BUN 6 L Creatinine 0.3 L Glucose POC Glucose 125 H Lactic Acid Calcium 8.2 L Magnesium Iron TIBC Ferritin AST ALT Lactate Dehydrogenase Troponin T C-Reactive Protein Total Protein Albumin Prealbumin Cholesterol LDL Cholesterol Direct HDL Cholesterol Urine WBC (Auto) Vancomycin Trough Coronavirus (PCR) Crossmatch 08/14/19 08/15/19 08/15/19 05:07 00:25 05:42 WBC RBC Hgb Hct MCV MCH MCHC RDW Plt Count Lymph % (Auto) [place] % (Auto) Lymph # [place] # Baso # Seg Neutrophils % Seg Neuts % (Manual) Lymphocytes % (Manual) Monocytes % (Manual) Basophils % (Manual) Nucleated RBC % Seg Neutrophils # Seg Neutrophils # Man Lymphocytes # (Manual) Monocytes # (Manual) Eosinophils # (Manual) Basophils # (Manual) PT INR D-Dimer ABG pH ABG pO2 ABG HCO3 ABG O2 Saturation ABG Base Excess ABG Hemoglobin Oxyhemoglobin Sodium Potassium Chloride Carbon Dioxide BUN Creatinine Glucose POC Glucose 128 H 117 H 115 H Lactic Acid Calcium Magnesium Iron TIBC Ferritin AST ALT Lactate Dehydrogenase Troponin T C-Reactive Protein Total Protein Albumin Prealbumin Cholesterol LDL Cholesterol Direct HDL Cholesterol Urine WBC (Auto) Vancomycin Trough Coronavirus (PCR) Crossmatch 08/15/19 08/15/19 08/15/19 06:10 06:10 06:10 WBC 11.6 H RBC 2.68 L Hgb 7.7 L Hct 23.3 L MCV MCH MCHC RDW 19.2 H Plt Count 885 H Lymph % (Auto) [place] % (Auto) Lymph # [place] # Baso # Seg Neutrophils % Seg Neuts % (Manual) Lymphocytes % (Manual) Monocytes % (Manual) Basophils % (Manual) Nucleated RBC % Seg Neutrophils # Seg Neutrophils # Man Lymphocytes # (Manual) Monocytes # (Manual) Eosinophils # (Manual) Basophils # (Manual) PT INR D-Dimer ABG pH ABG pO2 ABG HCO3 ABG O2 Saturation ABG Base Excess ABG Hemoglobin Oxyhemoglobin Sodium Potassium Chloride Carbon Dioxide BUN 6 L Creatinine 0.3 L Glucose 107 H POC Glucose Lactic Acid Calcium 8.2 L Magnesium 1.50 L Iron TIBC Ferritin AST ALT Lactate Dehydrogenase Troponin T C-Reactive Protein Total Protein Albumin Prealbumin Cholesterol LDL Cholesterol Direct HDL Cholesterol Urine WBC (Auto) Vancomycin Trough Coronavirus (PCR) Crossmatch 08/15/19 08/16/19 08/16/19 12:12 00:05 05:00 WBC 13.3 H RBC 2.87 L Hgb 8.1 L Hct 24.9 L MCV MCH MCHC RDW 18.7 H Plt Count 962 H Lymph % (Auto) [place] % (Auto) Lymph # [place] # Baso # Seg Neutrophils % Seg Neuts % (Manual) Lymphocytes % (Manual) Monocytes % (Manual) Basophils % (Manual) Nucleated RBC % Seg Neutrophils # Seg Neutrophils # Man Lymphocytes # (Manual) Monocytes # (Manual) Eosinophils # (Manual) Basophils # (Manual) PT INR D-Dimer ABG pH ABG pO2 ABG HCO3 ABG O2 Saturation ABG Base Excess ABG Hemoglobin Oxyhemoglobin Sodium Potassium Chloride Carbon Dioxide BUN Creatinine Glucose POC Glucose 112 H 111 H Lactic Acid Calcium Magnesium Iron TIBC Ferritin AST ALT Lactate Dehydrogenase Troponin T C-Reactive Protein Total Protein Albumin Prealbumin Cholesterol LDL Cholesterol Direct HDL Cholesterol Urine WBC (Auto) Vancomycin Trough Coronavirus (PCR) Crossmatch 08/16/19 08/16/19 08/16/19 05:00 05:00 23:35 WBC RBC Hgb Hct MCV MCH MCHC RDW Plt Count Lymph % (Auto) [place] % (Auto) Lymph # [place] # Baso # Seg Neutrophils % Seg Neuts % (Manual) Lymphocytes % (Manual) Monocytes % (Manual) Basophils % (Manual) Nucleated RBC % Seg Neutrophils # Seg Neutrophils # Man Lymphocytes # (Manual) Monocytes # (Manual) Eosinophils # (Manual) Basophils # (Manual) PT INR D-Dimer ABG pH ABG pO2 ABG HCO3 ABG O2 Saturation ABG Base Excess ABG Hemoglobin Oxyhemoglobin Sodium 135 L Potassium Chloride Carbon Dioxide BUN 6 L Creatinine 0.3 L Glucose POC Glucose 108 H Lactic Acid Calcium 8.2 L Magnesium Iron TIBC Ferritin AST ALT Lactate Dehydrogenase Troponin T C-Reactive Protein 2.70 H Total Protein Albumin 2.1 L Prealbumin Cholesterol LDL Cholesterol Direct HDL Cholesterol Urine WBC (Auto) Vancomycin Trough Coronavirus (PCR) Crossmatch 08/17/19 08/17/19 08/17/19 05:15 20:20 23:42 WBC RBC Hgb Hct MCV MCH MCHC RDW Plt Count Lymph % (Auto) [place] % (Auto) Lymph # [place] # Baso # Seg Neutrophils % Seg Neuts % (Manual) Lymphocytes % (Manual) Monocytes % (Manual) Basophils % (Manual) Nucleated RBC % Seg Neutrophils # Seg Neutrophils # Man Lymphocytes # (Manual) Monocytes # (Manual) Eosinophils # (Manual) Basophils # (Manual) PT INR D-Dimer ABG pH ABG pO2 ABG HCO3 27.8 H ABG O2 Saturation ABG Base Excess ABG Hemoglobin 11.4 L Oxyhemoglobin 94.6 L Sodium Potassium Chloride Carbon Dioxide BUN Creatinine Glucose POC Glucose 138 H 132 H Lactic Acid Calcium Magnesium Iron TIBC Ferritin AST ALT Lactate Dehydrogenase Troponin T C-Reactive Protein Total Protein Albumin Prealbumin Cholesterol LDL Cholesterol Direct HDL Cholesterol Urine WBC (Auto) Vancomycin Trough Coronavirus (PCR) Crossmatch 08/18/19 08/18/19 08/18/19 06:00 06:00 12:02 WBC 19.7 H RBC 3.30 L Hgb 9.3 L Hct 28.5 L MCV MCH MCHC RDW 18.9 H Plt Count 923 H Lymph % (Auto) [place] % (Auto) Lymph # [place] # Baso # Seg Neutrophils % Seg Neuts % (Manual) Lymphocytes % (Manual) Monocytes % (Manual) Basophils % (Manual) Nucleated RBC % Seg Neutrophils # Seg Neutrophils # Man Lymphocytes # (Manual) Monocytes # (Manual) Eosinophils # (Manual) Basophils # (Manual) PT INR D-Dimer ABG pH ABG pO2 ABG HCO3 ABG O2 Saturation ABG Base Excess ABG Hemoglobin Oxyhemoglobin Sodium 136 L Potassium Chloride Carbon Dioxide BUN Creatinine 0.4 L Glucose 71 L POC Glucose 123 H Lactic Acid Calcium Magnesium Iron TIBC Ferritin AST ALT Lactate Dehydrogenase Troponin T C-Reactive Protein Total Protein Albumin Prealbumin Cholesterol LDL Cholesterol Direct HDL Cholesterol Urine WBC (Auto) Vancomycin Trough Coronavirus (PCR) Crossmatch 08/18/19 08/18/19 08/19/19 18:23 23:16 04:57 WBC RBC Hgb Hct MCV MCH MCHC RDW Plt Count Lymph % (Auto) [place] % (Auto) Lymph # [place] # Baso # Seg Neutrophils % Seg Neuts % (Manual) Lymphocytes % (Manual) Monocytes % (Manual) Basophils % (Manual) Nucleated RBC % Seg Neutrophils # Seg Neutrophils # Man Lymphocytes # (Manual) Monocytes # (Manual) Eosinophils # (Manual) Basophils # (Manual) PT INR D-Dimer ABG pH ABG pO2 ABG HCO3 ABG O2 Saturation ABG Base Excess ABG Hemoglobin Oxyhemoglobin Sodium Potassium Chloride Carbon Dioxide BUN Creatinine Glucose POC Glucose 140 H 159 H 134 H Lactic Acid Calcium Magnesium Iron TIBC Ferritin AST ALT Lactate Dehydrogenase Troponin T C-Reactive Protein Total Protein Albumin Prealbumin Cholesterol LDL Cholesterol Direct HDL Cholesterol Urine WBC (Auto) Vancomycin Trough Coronavirus (PCR) Crossmatch 08/19/19 08/19/19 08/19/19 07:44 08:17 18:15 WBC 30.5 H RBC 2.87 L Hgb 7.9 L Hct 24.5 L MCV MCH MCHC RDW 18.8 H Plt Count 772 H Lymph % (Auto) [place] % (Auto) Lymph # [place] # Baso # Seg Neutrophils % Seg Neuts % (Manual) 89.0 H Lymphocytes % (Manual) 4.0 L Monocytes % (Manual) Basophils % (Manual) 2.0 H Nucleated RBC % Seg Neutrophils # Seg Neutrophils # Man 27.1 H Lymphocytes # (Manual) Monocytes # (Manual) 0.9 H Eosinophils # (Manual) 0.6 H Basophils # (Manual) 0.6 H PT INR D-Dimer ABG pH ABG pO2 ABG HCO3 ABG O2 Saturation ABG Base Excess ABG Hemoglobin Oxyhemoglobin Sodium 136 L Potassium Chloride Carbon Dioxide BUN Creatinine 0.3 L Glucose POC Glucose 106 H Lactic Acid Calcium 8.2 L Magnesium Iron TIBC Ferritin AST ALT Lactate Dehydrogenase Troponin T C-Reactive Protein Total Protein Albumin Prealbumin Cholesterol LDL Cholesterol Direct HDL Cholesterol Urine WBC (Auto) Vancomycin Trough Coronavirus (PCR) Crossmatch 08/19/19 08/20/19 08/20/19 23:46 06:20 18:34 WBC RBC Hgb Hct MCV MCH MCHC RDW Plt Count Lymph % (Auto) [place] % (Auto) Lymph # [place] # Baso # Seg Neutrophils % Seg Neuts % (Manual) Lymphocytes % (Manual) Monocytes % (Manual) Basophils % (Manual) Nucleated RBC % Seg Neutrophils # Seg Neutrophils # Man Lymphocytes # (Manual) Monocytes # (Manual) Eosinophils # (Manual) Basophils # (Manual) PT INR D-Dimer ABG pH ABG pO2 ABG HCO3 ABG O2 Saturation ABG Base Excess ABG Hemoglobin Oxyhemoglobin Sodium Potassium Chloride Carbon Dioxide BUN Creatinine Glucose POC Glucose 144 H 115 H 125 H Lactic Acid Calcium Magnesium Iron TIBC Ferritin AST ALT Lactate Dehydrogenase Troponin T C-Reactive Protein Total Protein Albumin Prealbumin Cholesterol LDL Cholesterol Direct HDL Cholesterol Urine WBC (Auto) Vancomycin Trough Coronavirus (PCR) Crossmatch 08/20/19 08/20/19 08/21/19 Unknown Unknown 11:56 WBC 18.7 H RBC 2.70 L Hgb 7.6 L Hct 23.1 L MCV MCH MCHC RDW 18.9 H Plt Count 690 H Lymph % (Auto) [place] % (Auto) Lymph # [place] # Baso # Seg Neutrophils % Seg Neuts % (Manual) Lymphocytes % (Manual) Monocytes % (Manual) Basophils % (Manual) Nucleated RBC % Seg Neutrophils # Seg Neutrophils # Man Lymphocytes # (Manual) Monocytes # (Manual) Eosinophils # (Manual) Basophils # (Manual) PT INR D-Dimer ABG pH ABG pO2 ABG HCO3 ABG O2 Saturation ABG Base Excess ABG Hemoglobin Oxyhemoglobin Sodium 134 L Potassium Chloride 97.9 L Carbon Dioxide BUN Creatinine 0.3 L Glucose 115 H POC Glucose 116 H Lactic Acid Calcium 8.2 L Magnesium Iron TIBC Ferritin AST ALT Lactate Dehydrogenase Troponin T C-Reactive Protein Total Protein Albumin Prealbumin Cholesterol LDL Cholesterol Direct HDL Cholesterol Urine WBC (Auto) Vancomycin Trough Coronavirus (PCR) Crossmatch 08/21/19 08/22/19 08/22/19 18:14 00:31 05:53 WBC RBC Hgb Hct MCV MCH MCHC RDW Plt Count Lymph % (Auto) [place] % (Auto) Lymph # [place] # Baso # Seg Neutrophils % Seg Neuts % (Manual) Lymphocytes % (Manual) Monocytes % (Manual) Basophils % (Manual) Nucleated RBC % Seg Neutrophils # Seg Neutrophils # Man Lymphocytes # (Manual) Monocytes # (Manual) Eosinophils # (Manual) Basophils # (Manual) PT INR D-Dimer ABG pH ABG pO2 ABG HCO3 ABG O2 Saturation ABG Base Excess ABG Hemoglobin Oxyhemoglobin Sodium Potassium Chloride Carbon Dioxide BUN Creatinine Glucose POC Glucose 113 H 106 H 109 H Lactic Acid Calcium Magnesium Iron TIBC Ferritin AST ALT Lactate Dehydrogenase Troponin T C-Reactive Protein Total Protein Albumin Prealbumin Cholesterol LDL Cholesterol Direct HDL Cholesterol Urine WBC (Auto) Vancomycin Trough Coronavirus (PCR) Crossmatch 08/22/19 08/23/19 08/23/19 18:35 00:18 06:00 WBC 12.3 H RBC 2.92 L Hgb 8.0 L Hct 24.6 L MCV MCH MCHC RDW 18.5 H Plt Count 661 H Lymph % (Auto) 11.7 L [place] % (Auto) 9.2 H Lymph # [place] # 1.1 H Baso # Seg Neutrophils % 75.6 H Seg Neuts % (Manual) Lymphocytes % (Manual) Monocytes % (Manual) Basophils % (Manual) Nucleated RBC % Seg Neutrophils # 9.3 H Seg Neutrophils # Man Lymphocytes # (Manual) Monocytes # (Manual) Eosinophils # (Manual) Basophils # (Manual) PT INR D-Dimer ABG pH ABG pO2 ABG HCO3 ABG O2 Saturation ABG Base Excess ABG Hemoglobin Oxyhemoglobin Sodium Potassium Chloride Carbon Dioxide BUN Creatinine Glucose POC Glucose 130 H 124 H Lactic Acid Calcium Magnesium Iron TIBC Ferritin AST ALT Lactate Dehydrogenase Troponin T C-Reactive Protein Total Protein Albumin Prealbumin Cholesterol LDL Cholesterol Direct HDL Cholesterol Urine WBC (Auto) Vancomycin Trough Coronavirus (PCR) Crossmatch 08/23/19 08/23/19 08/24/19 06:09 17:46 00:04 WBC RBC Hgb Hct MCV MCH MCHC RDW Plt Count Lymph % (Auto) [place] % (Auto) Lymph # [place] # Baso # Seg Neutrophils % Seg Neuts % (Manual) Lymphocytes % (Manual) Monocytes % (Manual) Basophils % (Manual) Nucleated RBC % Seg Neutrophils # Seg Neutrophils # Man Lymphocytes # (Manual) Monocytes # (Manual) Eosinophils # (Manual) Basophils # (Manual) PT INR D-Dimer ABG pH ABG pO2 ABG HCO3 ABG O2 Saturation ABG Base Excess ABG Hemoglobin Oxyhemoglobin Sodium Potassium Chloride Carbon Dioxide BUN Creatinine Glucose POC Glucose 117 H 125 H 113 H Lactic Acid Calcium Magnesium Iron TIBC Ferritin AST ALT Lactate Dehydrogenase Troponin T C-Reactive Protein Total Protein Albumin Prealbumin Cholesterol LDL Cholesterol Direct HDL Cholesterol Urine WBC (Auto) Vancomycin Trough Coronavirus (PCR) Crossmatch 08/24/19 08/24/19 08/24/19 05:34 12:28 17:32 WBC RBC Hgb Hct MCV MCH MCHC RDW Plt Count Lymph % (Auto) [place] % (Auto) Lymph # [place] # Baso # Seg Neutrophils % Seg Neuts % (Manual) Lymphocytes % (Manual) Monocytes % (Manual) Basophils % (Manual) Nucleated RBC % Seg Neutrophils # Seg Neutrophils # Man Lymphocytes # (Manual) Monocytes # (Manual) Eosinophils # (Manual) Basophils # (Manual) PT INR D-Dimer ABG pH ABG pO2 ABG HCO3 ABG O2 Saturation ABG Base Excess ABG Hemoglobin Oxyhemoglobin Sodium Potassium Chloride Carbon Dioxide BUN Creatinine Glucose POC Glucose 128 H 127 H 116 H Lactic Acid Calcium Magnesium Iron TIBC Ferritin AST ALT Lactate Dehydrogenase Troponin T C-Reactive Protein Total Protein Albumin Prealbumin Cholesterol LDL Cholesterol Direct HDL Cholesterol Urine WBC (Auto) Vancomycin Trough Coronavirus (PCR) Crossmatch 08/24/19 08/25/19 08/25/19 23:41 05:37 12:30 WBC RBC Hgb Hct MCV MCH MCHC RDW Plt Count Lymph % (Auto) [place] % (Auto) Lymph # [place] # Baso # Seg Neutrophils % Seg Neuts % (Manual) Lymphocytes % (Manual) Monocytes % (Manual) Basophils % (Manual) Nucleated RBC % Seg Neutrophils # Seg Neutrophils # Man Lymphocytes # (Manual) Monocytes # (Manual) Eosinophils # (Manual) Basophils # (Manual) PT INR D-Dimer ABG pH ABG pO2 ABG HCO3 ABG O2 Saturation ABG Base Excess ABG Hemoglobin Oxyhemoglobin Sodium Potassium Chloride Carbon Dioxide BUN Creatinine Glucose POC Glucose 107 H 129 H 110 H Lactic Acid Calcium Magnesium Iron TIBC Ferritin AST ALT Lactate Dehydrogenase Troponin T C-Reactive Protein Total Protein Albumin Prealbumin Cholesterol LDL Cholesterol Direct HDL Cholesterol Urine WBC (Auto) Vancomycin Trough Coronavirus (PCR) Crossmatch 08/25/19 08/25/19 08/26/19 17:49 23:55 05:35 WBC RBC Hgb Hct MCV MCH MCHC RDW Plt Count Lymph % (Auto) [place] % (Auto) Lymph # [place] # Baso # Seg Neutrophils % Seg Neuts % (Manual) Lymphocytes % (Manual) Monocytes % (Manual) Basophils % (Manual) Nucleated RBC % Seg Neutrophils # Seg Neutrophils # Man Lymphocytes # (Manual) Monocytes # (Manual) Eosinophils # (Manual) Basophils # (Manual) PT INR D-Dimer ABG pH ABG pO2 ABG HCO3 ABG O2 Saturation ABG Base Excess ABG Hemoglobin Oxyhemoglobin Sodium Potassium Chloride Carbon Dioxide BUN Creatinine Glucose POC Glucose 107 H 137 H 117 H Lactic Acid Calcium Magnesium Iron TIBC Ferritin AST ALT Lactate Dehydrogenase Troponin T C-Reactive Protein Total Protein Albumin Prealbumin Cholesterol LDL Cholesterol Direct HDL Cholesterol Urine WBC (Auto) Vancomycin Trough Coronavirus (PCR) Crossmatch 08/27/19 08/27/19 08/27/19 00:59 06:01 07:21 WBC 11.6 H RBC 3.15 L Hgb 8.3 L Hct 26.1 L MCV 83 L MCH 26 L MCHC RDW 18.6 H Plt Count 743 H Lymph % (Auto) 11.8 L [place] % (Auto) 8.8 H Lymph # [place] # 1.0 H Baso # Seg Neutrophils % 75.3 H Seg Neuts % (Manual) Lymphocytes % (Manual) Monocytes % (Manual) Basophils % (Manual) Nucleated RBC % Seg Neutrophils # 8.7 H Seg Neutrophils # Man Lymphocytes # (Manual) Monocytes # (Manual) Eosinophils # (Manual) Basophils # (Manual) PT INR D-Dimer ABG pH ABG pO2 ABG HCO3 ABG O2 Saturation ABG Base Excess ABG Hemoglobin Oxyhemoglobin Sodium Potassium Chloride Carbon Dioxide BUN Creatinine Glucose POC Glucose 126 H 134 H Lactic Acid Calcium Magnesium Iron TIBC Ferritin AST ALT Lactate Dehydrogenase Troponin T C-Reactive Protein Total Protein Albumin Prealbumin Cholesterol LDL Cholesterol Direct HDL Cholesterol Urine WBC (Auto) Vancomycin Trough Coronavirus (PCR) Crossmatch 08/27/19 07:21 WBC RBC Hgb Hct MCV MCH MCHC RDW Plt Count Lymph % (Auto) [place] % (Auto) Lymph # [place] # Baso # Seg Neutrophils % Seg Neuts % (Manual) Lymphocytes % (Manual) Monocytes % (Manual) Basophils % (Manual) Nucleated RBC % Seg Neutrophils # Seg Neutrophils # Man Lymphocytes # (Manual) Monocytes # (Manual) Eosinophils # (Manual) Basophils # (Manual) PT INR D-Dimer ABG pH ABG pO2 ABG HCO3 ABG O2 Saturation ABG Base Excess ABG Hemoglobin Oxyhemoglobin Sodium 132 L Potassium 5.1 H Chloride 97.6 L Carbon Dioxide BUN Creatinine 0.3 L Glucose 119 H POC Glucose Lactic Acid Calcium Magnesium Iron TIBC Ferritin AST ALT Lactate Dehydrogenase Troponin T C-Reactive Protein Total Protein Albumin Prealbumin Cholesterol LDL Cholesterol Direct HDL Cholesterol Urine WBC (Auto) Vancomycin Trough Coronavirus (PCR) Crossmatch Allied health notes reviewed: nursing
--- NOTE | 2019-08-27 16:26 | Progress Note ---
Assessment and Plan Cultures: 07/03/2019 urine culture: No growth 07/03/2019 Tracheal aspirate: E.coli 07/29/2019 urine culture: neg 07/30/2019 blood culture: no growth tracheal asp + Pseudomonas 08/06/2019 blood culture: no growth 08/09/2019 Wound MDR Enterobacter 08/16/2019 blood culture: no growth to date 08/20/2019 COVID-19 PCR: negative A/P: 69-year-old male with CVA, hypertension, dementia, schizophrenia, alcohol use disorder was admitted to the emergency room after being brought in by EMS with progressive shortness of breath and unresponsiveness. He was noted to have agonal breathing and a faint pulse requiring CPR. It seems patient was on hospice recently, prior to admission. #Shock, likely septic: shock resolved, remains off pressors. still intermittent fever, leukocytosis worse again: bacterial pneumonia vs sacral decubitus infection. #Non-resolving pneumonia/Cavitary pneumonia: ? abscess. Sputum +Pseudomonas. CT shows RUL pneumonia with 2.4 cm cavity and LLL pneumonia with moderate left pleural effusion. No need for thoracentesis per Pulm. #Penile/scrotal and buttocks wounds: ?cellulitis #Sacral decubitus: worsening on last exam ? necrotic. Evaluated for surgery, no indications for intervention. 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 bleeding overnight s/p surgical management bedside, 08/09/2019 Wound MDR Enterobacter likely a colonizer (superficial wound cx) #UTI: per documentation initial carroll placed on 07/03, exchanged on 07/31. #Severe COVID-19 disease and pneumonia: Markers improving. Completed Plaquenil. Completed Ceftriaxone for treatment E.coli in tracheal aspirate. Repeat COVID finally negative on 08/20/2019. #Acute respiratory failure: remains on mechanical ventilation. #Multiple skin tears documented on admission #Anemia: from sacral wound bleeding Recs: Continue IV Levofloxacin Day 9 of 10 Fevers improving. WBC though is trending down. Overall prognosis is extremely poor. Continue wound care Mekhi Barboza MD [facility] ([facility]) M: [phone] O: [phone] F: [phone] Subjective Date of service: 08/27/19 Principal diagnosis: Bilateral pneumonia, severe sepsis with septic shock, encephalopathy Interval history: Afebrile, stable. Remains in the ICU. Objective - Exam Narrative Exam: Narrative Exam: Physical Exam (reviewed in chart due to PPE conservation) Constitutional: intubated, sedated, on the vent Head, Ears, Nose: normocephalic, atraumatic Eyes: limited due to PPE conservation strategy Neck: intubated Oral: intubated Cardiovascular: limited due to PPE conservation strategy Respiratory: limited due to PPE conservation strategy GI: limited due to PPE conservation strategy Musculoskeletal: limited due to PPE conservation strategy Skin: limited due to PPE conservation strategy. Decubitus + Hem/Lymphatic: limited due to PPE conservation strategy Psych: no agitation Neurological: sedated, intubated, on the vent, exam limited - Constitutional Vitals: Vital Signs Temp Pulse Resp BP Pulse Ox 98.0 F 110 H 30 H 126/76 97 08/27/19 12:00 08/27/19 15:00 08/27/19 15:00 08/27/19 15:00 08/27/19 15:00 Temperature -Last 24 Hours Temperature 98.0 F Temperature 98.0 F Temperature 97.8 F Temperature 97.4 F Temperature 99.7 F - Labs CBC & Chem 7: 08/27/19 07:21 08/27/19 07:21 Labs: Abnormal lab results 08/27/19 08/27/19 08/27/19 Range/Units 00:59 06:01 07:21 WBC 11.6 H (4.5-11.0) K/mm3 RBC 3.15 L (3.65-5.03) M/mm3 Hgb 8.3 L (11.8-15.2) gm/dl Hct 26.1 L (35.5-45.6) % MCV 83 L (84-94) fl MCH 26 L (28-32) pg RDW 18.6 H (13.2-15.2) % Plt Count 743 H (140-440) K/mm3 Lymph % (Auto) 11.8 L (13.4-35.0) % [place] % (Auto) 8.8 H (0.0-7.3) % [place] # 1.0 H (0.0-0.8) K/mm3 Seg Neutrophils % 75.3 H (40.0-70.0) % Seg Neutrophils # 8.7 H (1.8-7.7) K/mm3 Sodium (137-145) mmol/L Potassium (3.6-5.0) mmol/L Chloride (98-107) mmol/L Creatinine (0.8-1.5) mg/dL Glucose (75-100) mg/dL POC Glucose 126 H 134 H (70-105) 08/27/19 Range/Units 07:21 WBC (4.5-11.0) K/mm3 RBC (3.65-5.03) M/mm3 Hgb (11.8-15.2) gm/dl Hct (35.5-45.6) % MCV (84-94) fl MCH (28-32) pg RDW (13.2-15.2) % Plt Count (140-440) K/mm3 Lymph % (Auto) (13.4-35.0) % [place] % (Auto) (0.0-7.3) % [place] # (0.0-0.8) K/mm3 Seg Neutrophils % (40.0-70.0) % Seg Neutrophils # (1.8-7.7) K/mm3 Sodium 132 L (137-145) mmol/L Potassium 5.1 H (3.6-5.0) mmol/L Chloride 97.6 L (98-107) mmol/L Creatinine 0.3 L (0.8-1.5) mg/dL Glucose 119 H (75-100) mg/dL POC Glucose (70-105)
[2019-08-27] MEDS: METOPROLOL TARTRATE 5 MG/5 ML INJ IV PRN (17:44)
--- NOTE | 2019-08-27 17:58 | Progress Note ---
Assessment and Plan Assessment and plan: Awaiting trach and PEG, scheduled for 08/31/2019 08/20/2019; hernandez PCR negative 08/10/2019; hernandez PCR positive 07/29/2019; hernandez PCR positive 07/04/2019; hernandez PCR positive --Vomitings: Probably secondary to high residuals Hold tube feeding, IV Zofran, resume tube feedings again tomorrow Discussed with patient's nurse -- Acute hypoxic respiratory Failure vent dependent Unable to wean, planning trach and PEG Patient needs to have a negative COVID for the procedure Patient's COVID-19 test is negative[08/20/2019] --Bilateral PNA with COVID 19 infection. On ventilatory support, unable to wean Pulmonary critical following --COVid positive pneumonia with severe sepsis Possible abscess, no need for drianage per ID/pULM Received Plaquenil and cefepime, Currently patient is on Levaquin per ID --Recurrent fever: Afebrile now --COPD with exacerbation Likely due to COVID-19 pneumonia Continue scheduled nebs --Acute metabolic encephalopathy: Unchanged despite no sedation --Septic shock: Off pressors Monitor blood pressures, fluid bolus if needed --Anemia, Microcytic persistent s/p total 6 unit of PRBC, H&H low stable --Pressure Ulcers: concerning for osteomylitis POA/ Scrotal ulcers buttocks, right lateral foot area, wound and supportive care --Hyponatremia, resolved --DM type 2: Accu-Chek SCC tube feeding, insulin as needed --h/o HTN Essential, BP in the lower range --Seizure D/o/CVA/immobility/BIpolar D/o/SCZ Seizure precautions, antiepileptic medications --Severe PCM, TF supportive care, dietary following --DNR status Very poor prognosis, Recommend hospice Awaiting trach and PEG, and LTAC placement 08/16: Awaiting negative COVID test for placement of trach and PEG. In the meantime we will continue aggressive attempt to wean patient. Cultures have been reviewed and discussed with infectious disease who is managing treatment at this time. Continue wound care dressing. Multiple skin tears were noted on admission will continue to follow. Patient receiving repeat chest x-ray reviewed today shows stable bilateral pulmonary disease and no acuity noted on KUB due to persistent fever ID reviewing increases acidophil wondering if there is drug fever will follow closely. Prognosis remains guarded. 08/17: Continue current management, monitor WBC, mildly elevated. 08/18: Remains on full ventilatory support mental status still unchanged. Co ntinue supportive care. Antibiotics adjustment per ID. Discussed with nursing staff will do some wound dressing changes today to see progression. My understanding was that the wounds did have significant bleed last time but tamponaded. Will monitor in the setting of anemia. 08/19: Remains on full ventilatory support mental status still unchanged. Repeat COVID19 Testing to allow for Trach and Peg and transfer to LTAC. Continue supportive care. Antibiotics adjustment per ID. poor prognosis. b/l chest xray unchanged. continue wound care 08/21/2019: COVID test negative,reconsult surgery for possible trach and PEG , remains intubated on vent 08/22/2019: Surgery reevaluated, scheduled trach and PEG for 08/31/2019 .patient is on vent support 08/23/2019; unable to wean, awaiting trach and PEG, clinically no change 08/24/2019: Patient has tachycardia, added low-dose metoprolol, pending trach and PEG 08/25/2019: Patient's has blood pressure in the lower range, probably due to the metoprolol that was started yesterday for tachycardia We will closely monitor and adjust dose of medication, consider fluid bolus, unable to wean, Pending trach and PEG 08/26/2019; awaiting trach and PEG 08/31/2019, clinically no change 08/27/2019; patient had some vomiting, tube feedings held, Zofran as needed The high probability of a clinically significant, sudden or life threatening deterioration of the [respiratory, CVS, PREC[employer] L[employer]ER] system(s) required my full and direct attention, int ervention and personal management. The aggregate critical care time was [33] minutes. This time is in addition to time spent performing reported procedures but includes the following: [x] Data Review and interpretation [x] Patient assessment and monitoring of vital signs [x] Documentation [x] Medication orders and management History Interval history: Patient seen and examined at the bedside this morning Patient's chart and medications reviewed Remains orally intubated on ventilatory support Patient had some vomiting this evening Tube feedings held Vital signs noted Hospitalist Physical - Constitutional Vitals: Temp Pulse Resp BP Pulse Ox 98.0 F 145 H 30 H 149/86 97 08/27/19 12:00 08/27/19 17:44 08/27/19 15:00 08/27/19 17:44 08/27/19 15:00 General appearance: Present: mild distress, cachectic, other (On vent) - EENT Eyes: Absent: scleral icterus - Neck Neck: Present: supple, other (ET tube and Dobbhoff in place) - Respiratory Respiratory effort: normal Respiratory: bilateral: diminished, rhonchi, negative: rales, wheezing - Cardiovascular Rhythm: regular Heart Sounds: Present: S1 & S2 - Extremities Extremities: no ischemia, No edema - Abdominal General gastrointestinal: soft, non-tender, non-distended, normal bowel sounds - Integumentary Integumentary: Present: clear, warm - Psychiatric Psychiatric: other (Noncommunicative intubated on vent) - Neurologic Neurologic: other (Intubated on vent) HEART Score - HEART Score Troponin: Troponin T 0.013 ng/mL (0.00-0.029) 07/04/19 07:05 Results - Labs CBC & Chem 7: 08/27/19 07:21 08/27/19 07:21 Labs: Laboratory Last Values WBC 11.6 K/mm3 (4.5-11.0) H 08/27/19 07:21 RBC 3.15 M/mm3 (3.65-5.03) L 08/27/19 07:21 Hgb 8.3 gm/dl (11.8-15.2) L 08/27/19 07:21 Hct 26.1 % (35.5-45.6) L 08/27/19 07:21 MCV 83 fl (84-94) L 08/27/19 07:21 MCH 26 pg (28-32) L 08/27/19 07:21 MCHC 32 % (32-34) 08/27/19 07:21 RDW 18.6 % (13.2-15.2) H 08/27/19 07:21 Plt Count 743 K/mm3 (140-440) H 08/27/19 07:21 Lymph % (Auto) 11.8 % (13.4-35.0) L 08/27/19 07:21 [place] % (Auto) 8.8 % (0.0-7.3) H 08/27/19 07:21 Eos % (Auto) 2.9 % (0.0-4.3) 08/27/19 07:21 Baso % (Auto) 1.2 % (0.0-1.8) 08/27/19 07:21 Lymph # 1.4 K/mm3 (1.2-5.4) 08/27/19 07:21 [place] # 1.0 K/mm3 (0.0-0.8) H 08/27/19 07:21 Eos # 0.3 K/mm3 (0.0-0.4) 08/27/19 07:21 Baso # 0.1 K/mm3 (0.0-0.1) 08/27/19 07:21 Add Manual Diff Complete 08/19/19 08:17 Total Counted 100 08/19/19 08:17 Seg Neutrophils % 75.3 % (40.0-70.0) H 08/27/19 07:21 Seg Neuts % (Manual) 89.0 % (40.0-70.0) H 08/19/19 08:17 Band Neutrophils % 0 % 08/19/19 08:17 Lymphocytes % (Manual) 4.0 % (13.4-35.0) L 08/19/19 08:17 Reactive Lymphs % (Man) 0 % 08/19/19 08:17 Monocytes % (Manual) 3.0 % (0.0-7.3) 08/19/19 08:17 Eosinophils % (Manual) 2.0 % (0.0-4.3) 08/19/19 08:17 Basophils % (Manual) 2.0 % (0.0-1.8) H 08/19/19 08:17 Metamyelocytes % 0 % 08/19/19 08:17 Myelocytes % 0 % 08/19/19 08:17 Promyelocytes % 0 % 08/19/19 08:17 Blast Cells % 0 % 08/19/19 08:17 Nucleated RBC % Not Reportable 08/19/19 08:17 Seg Neutrophils # 8.7 K/mm3 (1.8-7.7) H 08/27/19 07:21 Seg Neutrophils # Man 27.1 K/mm3 (1.8-7.7) H 08/19/19 08:17 Band Neutrophils # 0.0 K/mm3 08/19/19 08:17 Lymphocytes # (Manual) 1.2 K/mm3 (1.2-5.4) 08/19/19 08:17 Abs React Lymphs (Man) 0.0 K/mm3 08/19/19 08:17 Monocytes # (Manual) 0.9 K/mm3 (0.0-0.8) H 08/19/19 08:17 Eosinophils # (Manual) 0.6 K/mm3 (0.0-0.4) H 08/19/19 08:17 Basophils # (Manual) 0.6 K/mm3 (0.0-0.1) H 08/19/19 08:17 Metamyelocytes # 0.0 K/mm3 08/19/19 08:17 Myelocytes # 0.0 K/mm3 08/19/19 08:17 Promyelocytes # 0.0 K/mm3 08/19/19 08:17 Blast Cells # 0.0 K/mm3 08/19/19 08:17 WBC Morphology Not Reportable 08/19/19 08:17 Hypersegmented Neuts Not Reportable 08/19/19 08:17 Hyposegmented Neuts Not Reportable 08/19/19 08:17 Hypogranular Neuts Not Reportable 08/19/19 08:17 Smudge Cells Not Reportable 08/19/19 08:17 Toxic Granulation Not Reportable 08/19/19 08:17 Toxic Vacuolation Not Reportable 08/19/19 08:17 Dohle Bodies Not Reportable 08/19/19 08:17 Pelger-Huet Anomaly Not Reportable 08/19/19 08:17 Mendy Rods Not Reportable 08/19/19 08:17 Platelet Estimate Consistent w auto 08/19/19 08:17 Clumped Platelets Not Reportable 08/19/19 08:17 Plt Clumps, EDTA Not Reportable 08/19/19 08:17 Large Platelets Not Reportable 08/19/19 08:17 Giant Platelets Not Reportable 08/19/19 08:17 Platelet Satelliting Not Reportable 08/19/19 08:17 Plt Morphology Comment Not Reportable 08/19/19 08:17 RBC Morphology Not Reportable 08/19/19 08:17 Dimorphic RBCs Not Reportable 08/19/19 08:17 Polychromasia Not Reportable 08/19/19 08:17 Hypochromasia 1+ 08/19/19 08:17 Poikilocytosis Not Reportable 08/19/19 08:17 Anisocytosis Few 08/19/19 08:17 Microcytosis Not Reportable 08/19/19 08:17 Macrocytosis Not Reportable 08/19/19 08:17 Spherocytes Not Reportable 08/19/19 08:17 Pappenheimer Bodies Not Reportable 08/19/19 08:17 Sickle Cells Not Reportable 08/19/19 08:17 Target Cells Not Reportable 08/19/19 08:17 Tear Drop Cells Not Reportable 08/19/19 08:17 Ovalocytes Not Reportable 08/19/19 08:17 Stomatocytes Few 08/01/19 04:57 Helmet Cells Not Reportable 08/19/19 08:17 [place] Bodies Not Reportable 08/19/19 08:17 [place] Rings Not Reportable 08/19/19 08:17 Joanne Cells Not Reportable 08/19/19 08:17 Bite Cells Not Reportable 08/19/19 08:17 Crenated Cell Not Reportable 08/19/19 08:17 Elliptocytes Not Reportable 08/19/19 08:17 Acanthocytes (Spur) Not Reportable 08/19/19 08:17 Rouleaux Not Reportable 08/19/19 08:17 Hemoglobin C Crystals Not Reportable 08/19/19 08:17 Schistocytes Not Reportable 08/19/19 08:17 Malaria parasites Not Reportable 08/19/19 08:17 Jeevan Bodies Not Reportable 08/19/19 08:17 Hem Pathologist Commnt No 08/19/19 08:17 PT 16.0 Sec. (12.2-14.9) H 07/03/19 22:20 INR 1.26 (0.87-1.13) H 07/03/19 22:20 D-Dimer 1808.06 ng/mlDDU (0-234) H 08/07/19 10:24 ABG pH 7.405 pH Units (7.350-7.450) 08/17/19 20:20 ABG pCO2 45.3 mm Hg 08/17/19 20:20 ABG pO2 84.2 mm Hg (80.0-90.0) 08/17/19 20:20 ABG HCO3 27.8 mmol/L (20.0-26.0) H 08/17/19 20:20 ABG O2 Saturation 96.9 % (95.0-99.0) 08/17/19 20:20 ABG O2 Content 15.2 (0.0-44) 08/17/19 20:20 ABG Base Excess 2.6 mmol/L (-2.0-3.0) 08/17/19 20:20 ABG Hemoglobin 11.4 gm/dl (14.0-18.0) L 08/17/19 20:20 ABG Carboxyhemoglobin 1.9 % (0.0-5.0) 08/17/19 20:20 ABG Methemoglobin 0.5 % (0.0-1.5) 08/17/19 20:20 Oxyhemoglobin 94.6 % (95.0-99.0) L 08/17/19 20:20 FiO2 28 % 08/17/19 20:20 Sodium 132 mmol/L (137-145) L 08/27/19 07:21 Potassium 5.1 mmol/L (3.6-5.0) H 08/27/19 07:21 Chloride 97.6 mmol/L (98-107) L 08/27/19 07:21 Carbon Dioxide 26 mmol/L (22-30) 08/27/19 07:21 Anion Gap 14 mmol/L 08/27/19 07:21 BUN 15 mg/dL (9-20) 08/27/19 07:21 Creatinine 0.3 mg/dL (0.8-1.5) L 08/27/19 07:21 Estimated GFR > 60 ml/min 08/27/19 07:21 BUN/Creatinine Ratio 50 % 08/27/19 07:21 Glucose 119 mg/dL (75-100) H 08/27/19 07:21 POC Glucose 97 (70-105) 08/27/19 12:04 Osmolality 268 Mosm/kg 07/05/19 04:00 Lactic Acid 1.70 mmol/L (0.7-2.0) 08/18/19 13:00 Uric Acid 7.2 mg/dL (3.5-7.6) 07/05/19 04:00 Calcium 8.9 mg/dL (8.4-10.2) 08/27/19 07:21 Phosphorus 3.60 mg/dL (2.5-4.5) 07/05/19 04:00 Magnesium 1.50 mg/dL (1.7-2.3) L 08/15/19 06:10 Iron 9 ug/dL (49-181) L 07/04/19 07:05 TIBC 97 mcg/dL (250-450) L 07/04/19 07:05 Ferritin 360.4 ng/mL (13.0-400.0) 08/07/19 10:24 Total Bilirubin 0.20 mg/dL (0.1-1.2) 08/16/19 05:00 AST 20 units/L (5-40) 08/16/19 05:00 ALT 8 units/L (7-56) 08/16/19 05:00 Alkaline Phosphatase 77 units/L (35-129) 08/16/19 05:00 Ammonia 35.0 umol/L (25-60) 07/03/19 23:58 Lactate Dehydrogenase 144 units/L (91-180) 08/07/19 10:24 Troponin T 0.013 ng/mL (0.00-0.029) 07/04/19 07:05 C-Reactive Protein 2.70 mg/dL (0.00-1.30) H 08/16/19 05:00 Total Protein 7.0 g/dL (6.3-8.2) 08/16/19 05:00 Albumin 2.1 g/dL (3.9-5) L 08/16/19 05:00 Albumin/Globulin Ratio 0.4 % 08/16/19 05:00 Prealbumin 0.037 g/L (0.200-0.400) L 07/31/19 04:42 Triglycerides 33 mg/dL (2-149) 07/03/19 19:57 Cholesterol 47 mg/dL (50-199) L 07/03/19 19:57 LDL Cholesterol Direct 25 mg/dL (50-130) L 07/03/19 19:57 HDL Cholesterol 20 mg/dL (40-59) L 07/03/19 19:57 Cholesterol/HDL Ratio 2.35 % 07/03/19 19:57 Procalcitonin < 0.05 ng/mL (<0.15) 08/16/19 14:35 TSH 2.170 mlU/mL (0.270-4.200) 07/03/19 22:20 Total Cortisol 28.0 mcg/dL () 07/05/19 10:11 Urine Color Yellow (Yellow) 07/29/19 11:57 Urine Turbidity Clear (Clear) 07/29/19 11:57 Urine pH 7.0 (5.0-7.0) 07/29/19 11:57 Ur Specific [place] 1.012 (1.003-1.030) 07/29/19 11:57 Urine Protein <15 mg/dl mg/dL (Negative) 07/29/19 11:57 Urine Glucose (UA) Neg mg/dL (Negative) 07/29/19 11:57 Urine Ketones Neg mg/dL (Negative) 07/29/19 11:57 Urine Blood Sm (Negative) 07/29/19 11:57 Urine Nitrite Neg (Negative) 07/29/19 11:57 Urine Bilirubin Neg (Negative) 07/29/19 11:57 Urine Urobilinogen 4.0 mg/dL (<2.0) 07/29/19 11:57 Ur Leukocyte Esterase Mod (Negative) 07/29/19 11:57 Urine WBC (Auto) 63.0 /HPF (0.0-6.0) H 07/29/19 11:57 Urine RBC (Auto) 14.0 /HPF (0.0-6.0) 07/29/19 11:57 U Epithel Cells (Auto) < 1.0 /HPF (0-13.0) 07/29/19 11:57 Urine Bacteria (Auto) 1+ /HPF (Negative) 07/29/19 11:57 Urine WBC Clumps Few /HPF 07/03/19 21:13 Urine Mucus Few /HPF 07/03/19 21:13 Urine Osmolality 293 Mosm/kg 07/05/19 08:15 Vancomycin Trough 23.2 ug/mL (5.0-20.0) H 07/05/19 17:54 Urine Opiates Screen Presumptive negative 07/03/19 21:13 Urine Methadone Screen Presumptive negative 07/03/19 21:13 Ur Barbiturates Screen Presumptive negative 07/03/19 21:13 Ur Phencyclidine Scrn Presumptive negative 07/03/19 21:13 Ur Amphetamines Screen Presumptive negative 07/03/19 21:13 U Benzodiazepines Scrn Presumptive negative 07/03/19 21:13 Urine Cocaine Screen Presumptive negative 07/03/19 21:13 U Marijuana (THC) Screen Presumptive negative 07/03/19 21:13 Drugs of Abuse Note Disclamer 07/03/19 21:13 Plasma/Serum Alcohol < 0.01 % (0-0.07) 07/03/19 23:58 Coronavirus (PCR) Negative (Negative) 08/20/19 12:23 Hepatitis A IgM Ab Non-reactive (NonReactive) 08/07/19 10:24 Hep Bs Antigen Non-reactive (Negative) 08/07/19 10:24 Hep B Core IgM Ab Non-reactive (NonReactive) 08/07/19 10:24 Hepatitis C Antibody Non-reactive (NonReactive) 08/07/19 10:24 Blood Type B POSITIVE 08/09/19 17:59 Antibody Screen Negative 08/09/19 17:59 Crossmatch See Detail 08/09/19 17:59 [place]/IV: Voiding Method Indwelling Catheter IV Catheter Type [Left Triple Lumen Cath Internal Jugular] IV Catheter Type [Left INT / Saline Lock Antecubital] IV Catheter Type [Left Forearm Peripheral IV ] IV Catheter Type [Left Upper Mid-line arm] IV Catheter Type [Right INT / Saline Lock Forearm] IV Catheter Type [Right Hand] INT / Saline Lock IV Catheter Type [Right CVL Femoral] IV Catheter Type [Left INT / Saline Lock External Jugular] Active Medications - Current Medications Current Medications: Generic Name Dose Route Start Last Admin Trade Name Freq PRN Reason Stop Dose Admin Acetaminophen 650 mg 07/04/19 04:24 08/05/19 17:40 Tylenol [place] 650 mg Q6H PRN Administration Pain MILD(1-3)/Fever >100.5/MURO Acetaminophen 650 mg 07/10/19 04:00 08/26/19 22:53 Tylenol PO 650 mg Q6HR PRN Administration Pain, Mild (1-3) FEVER Lipase/Protease/Amylase 1 each 07/04/19 10:04 08/11/19 06:03 Pancrewhitley [place] 10,500 Unit FEEDTUBE 1 each PRN PRN Administration For Clogged Feeding Tube Aspirin 81 mg 07/05/19 10:00 08/27/19 10:06 Baby Aspirin PO 81 mg QDAY TAMMIE Administration Dextrose 50 ml 07/04/19 06:54 D50w (25gm) Syringe IV Q30MIN PRN Hypoglycemia Protocol Docusate Sodium 100 mg 08/14/19 14:00 08/27/19 13:11 Colace PO 100 mg BID PRN Administration CONSTIPATION Enoxaparin Sodium 40 mg 07/24/19 10:00 08/27/19 10:06 Enoxaparin SUB-Q 40 mg QDAY@1000 TAMMIE Administration Famotidine 20 mg 07/23/19 22:00 08/27/19 10:06 Pepcid PO 20 mg BID TAMMIE Administration Fentanyl 50 mcg 07/21/19 15:18 08/25/19 17:48 Sublimaze IV 50 mcg Q10MIN PRN Administration ANALGESIA Fentanyl 25 mcg 08/03/19 11:00 08/27/19 10:51 Duragesic TD 25 mcg Q3D TAMMIE Administration Folic Acid 1 mg 07/05/19 10:00 08/27/19 10:06 Folvite PO 1 mg QDAY TAMMIE Administration Glycopyrrolate 1 mg 08/16/19 14:00 08/27/19 13:10 Robinul PO 1 mg TID TAMMIE Administration Hydrophilic Ointment 1 applic 07/03/19 19:56 07/05/19 17:42 Vaseline Lip Therapy TP 1 applic Q2HR PRN Administration Dry Lips Norepinephrine 4 mg in 250 mls @ 7.5 mls/hr 07/03/19 23:00 07/20/19 01:00 Levophed Drip 4 Mg/Ns 250 Ml IV Infused TITR TAMMIE Titration Protocol 2 MCG/MIN Levofloxacin/Dextrose 750 mg in 150 mls @ 100 mls/hr 08/19/19 12:00 08/27/19 11:40 Levaquin 750mg/150ml IV 08/28/19 11:29 Infused Q24HR TAMMIE Infusion Protocol Insulin Human Lispro 0 unit 07/07/19 12:00 08/27/19 12:30 Humalog SUB-Q Not Given Q6HR [facility] Protocol Levetiracetam 750 mg 07/06/19 11:00 08/27/19 10:50 Keppra FEEDTUBE 750 mg Q12HR TAMMIE Administration Metoprolol Tartrate 5 mg 07/12/19 15:08 08/27/19 17:44 Metoprolol IV 5 mg Q6HR PRN Administration Tachyarrhythmias Metoprolol Tartrate 12.5 mg 08/24/19 10:00 08/27/19 10:11 Metoprolol PO Not Given BID TAMMIE Multi-Ingred Cream/Lotion/Oil/Oint 1 applic 07/03/19 19:56 07/05/19 13:19 Artificial Tears Ophth Oint OU 1 applic Q4HR PRN Administration Dry Eye(s) Naloxone HCl 0.1 mg 07/04/19 04:24 Naloxone IV Q2MIN PRN Res Rate </= 8 or 02 SAT < 92% Oxycodone/Acetaminophen 1 tab 07/19/19 14:17 08/24/19 15:17 Percocet 5/325 PO 1 tab Q4H PRN Administration Pain, Moderate (4-6) Scopolamine 1 each 07/10/19 11:00 08/27/19 10:51 Transderm-Scop TD 1 each Q3D TAMMIE Administration Simple Syrup 15 ml 07/04/19 10:04 07/10/19 21:56 Simple Syrup FEEDTUBE 15 ml PRN PRN Administration Hypoglycemia Simple Syrup 30 ml 07/04/19 10:04 Simple Syrup FEEDTUBE PRN PRN Hypoglycemia Sodium Bicarbonate 325 mg 07/04/19 10:04 07/20/19 10:20 Sodium Bicarbonate FEEDTUBE 325 mg PRN PRN Administration For Clogged Feeding Tube Sodium Chloride 10 ml 07/04/19 10:00 08/27/19 10:13 Sodium Chloride Flush Syringe 10 Ml IV 10 ml BID TAMMIE Administration Sodium Chloride 10 ml 07/04/19 04:24 Sodium Chloride Flush Syringe 10 Ml IV PRN PRN LINE FLUSH Sodium Hypochlorite 1 applic 07/10/19 14:00 08/27/19 10:11 Dakin's Half Strength TP 1 appful BID TAMMIE Administration Nutrition/Malnutrition Assess - Dietary Evaluation Nutrition/Malnutrition Findings: Nutrition Notes Start: 07/04/19 09:17 Freq: Status: Active Protocol: Document 08/21/19 10:32 LP (Rec: 08/21/19 10:34 LP [id number]) Nutrition Notes Initial or Follow up Reassessment Current Diagnosis Acute Kidney Injury,COPD, Decubitus(Pressure Ulcer), Diabetes,Hypertension Other Pertinent Diagnosis COVID-19 (+), pneu, seizures, schizophrenia, Buttock and R foot PU, Current Diet Osmolite 1.5 at 55ml/hr Labs/Tests Reviewed Pertinent Medications Reviewed Height 5 ft 11 in Weight 75.3 kg [place] Body Weight (kg) 78.18 BMI 23.1 Weight Status Appropriate Subjective/Other Information Pt continues tolerating TF at goal rate.. Percent of energy/protein needs met: 97%/75% Burn Absent Trauma Absent Current % PO Negligible Minimum of two criteria No physical signs of malnutrition #2 Nutrition Diagnosis Increased nutrient needs ( specify in comment below) Diagnosis Progress(for reassessment Continues documentation) #1 Nutrition Diagnosis Inadequate oral intake Diagnosis Progress(for reassessment Continues documentation) Is patient on ventilator? Yes Is Patient Ambulatory and/or Out of Bed No REE-([facility]-confined to bed) 1845.969 Calculation Used for Recommendations [facility] Additional Notes Protein: 110-184 (1.2-2g/kg) Fluid: 1 ml/kcal or per MD Nutrition Intervention Change Diet Order: Continue TF Nutrition Support: Osmolite 1.5 at 55ml/hr Flush 150ml q4h Kcal 1,980 Protein (gm) 83 Fluid (mL) 1,006 Add Supplement/Snack (indicate name/kcal Scott BID /protein ) Provides kCal: 190 Provides Protein (gm) 5 Goal #1 TF tolerance Goal #2 TF to meet at least 75% of energy and protein needs Anticipated Discharge Needs: unable to determine at this time Follow-Up By: 08/28/19 Additional Comments Follow for stable TF
[2019-08-27] MEDS ORDERED: ONDANSETRON 4 MG/2 ML INJ IV PRN (17:59)
[2019-08-27] MEDS: fentaNYL 100 MCG/2 ML INJ IV PRN (21:28)
[2019-08-28] MEDS: INSULIN LISPRO 100 UNIT/ML SUB-Q SCH ×4 (01:14→18:00)
[2019-08-28] MEDS: ACETAMINOPHEN 325 MG/10.15 ML ORAL LIQD UNIT DOSE PO PRN (05:51)
[2019-08-28] MEDS: GLYCOPYRROLATE 1 MG TAB PO SCH ×3 (08:00→20:25)
[2019-08-28] MEDS: FOLIC ACID 1 MG TAB PO SCH (09:08)
[2019-08-28] MEDS: levETIRAcetam 500 MG/5 ML ORAL LIQD FEEDTUBE SCH ×2 (09:08→21:42)
[2019-08-28] MEDS: ASPIRIN 81 MG TAB CHEW PO SCH (09:08)
[2019-08-28] MEDS: ENOXAPARIN 40 MG/0.4 ML INJ SUB-Q SCH (09:09)
[2019-08-28] MEDS: FAMOTIDINE 20 MG TAB PO SCH ×2 (09:09→21:42)
[2019-08-28] MEDS: METOPROLOL TARTRATE 25 MG TAB PO SCH ×2 (09:10→21:42)
[2019-08-28] MEDS: SODIUM HYPOCHLORITE, DAKIN'S 1/2 STRENGTH (0.25%) 473 ML TOPICAL SOLN TP SCH ×2 (09:13→21:43)
[2019-08-28] MEDS: DOCUSATE SODIUM 100 MG/10 ML ORAL LIQD PO PRN (10:36)
--- NOTE | 2019-08-28 13:12 | Progress Note ---
Assessment and Plan Acute hypoxemic respiratory failure on MVS Severe sepsis with Shock. Bilateral Pneumonia. PUI coronavirus-19 infection. Acute possibly on chronic encephalopathy. Oropharyngeal dysphagia. Anemia. Decubitus ulcers Diabetes type 2. Hypertension. Leukocytosis. Anemia that is microcytic. Elevated serum transaminases. [id number] metabolic acidosis. Lactic acidosis. Severe protein-calorie malnutrition ( has advised us she wants a tracheostomy and continued aggressive care) - get KUB and address (lastr KUB 08/24 suggested ileus) - schedule Colace & Miralax - get BMP in am to evaluate for Hypokalemia - schedule low dose reglan - tracheostomy placement tentatively for tuesday - meantime, continue daily SBT's; if he shows significant tolerance of SBT's over an extended few day periods a trial of extubation may still be considered especially now he is COVID negative - no new issues otherwise, continue care as below otherwise - repeat COVID-19 negative - prn CXR's and ABG's at this point - continue care as below otherwise - continue fentanyl gtt for pain control / sedation - continue to wean supplemental oxygen for target O2 sat's > 90% acutely - continue daily SAT's and SBT assessment as tolerated - VAP bundle addressed - continue lung protective strategies - continue bronchodilators with pulmonary hygiene per RT - wean per pulmonary driven protocols otherwise - prn Levophed for target MAP > 65 mmHg - continue airborne and contact COVID-19 precautions - s/p anti-infectives and de-escalation per ID recommendations - continue wound care per WCT - sedation prn for target RASS 0 to -1 - accuchecks with glycemic control per SSI (While critically ill target blood glucose of 140-180 mg/dL; avoid hypoglycemia) - to avoid benzodiazepine's, reduce the possibility of delirium - prn analgesia per CPOT score - Maintenance of sleep-wake cycle, avoid delirium - continue enteral nutritional support at goal rate as tolerated - G.I. & VTE prophylaxis - PT/OT/ROM exercises - continue mobility protocols for pressure ulcer prophylaxis - Monitor hemodynamics closely - continue other care per attending / other consultants - discharge planning ongoing concurrently .... Re-evaluate in am & prn CONDITION: CRITICAL PROGNOSIS: GUARDED CODE STATUS: FULL CODE The high probability of a clinically significant, sudden or life-threatening deterioration of the [respiratory & cardiovascular] system(s) required my full and direct attention, intervention and personal management. The aggregate critical care time was [34] minutes without overlap. Time includes spent on; [x] Data Review and interpretation [x] Patient assessment and monitoring of vital signs [x] Documentation [x] Medication orders and management Subjective Date of service: 08/28/19 Principal diagnosis: Bilateral pneumonia, severe sepsis with septic shock, encephalopathy Interval history: Patient is seen today for: Ac hypoxemic Resp failure on MVS; Severe sepsis with Shock; Ivan. Pneumonia; PUI coronavirus-19 infection. Seen and examined at bedside; 24hour events reviewed; nursing and respiratory care staff consulted; no adverse overnight events reported to me; resting in bed; remains on MVS; + episode of emesis overnight and tube feeds held; no diarrhea and per RN no BM's X 3-4 days; AMS is persistent Objective Vital Signs - 12hr 08/28/19 08/28/19 08/28/19 02:00 03:00 03:31 Temperature 100.6 F H Pulse Rate 96 H 94 H Pulse Rate [ From Monitor] Respiratory 16 13 Rate Blood Pressure 98/48 106/52 O2 Sat by Pulse 100 100 Oximetry 08/28/19 08/28/19 08/28/19 03:54 04:00 05:00 Temperature Pulse Rate 90 97 H 92 H Pulse Rate [ 94 H From Monitor] Respiratory 13 13 Rate Blood Pressure 101/51 98/53 100/48 O2 Sat by Pulse 100 100 100 Oximetry 08/28/19 08/28/19 08/28/19 06:00 07:00 07:31 Temperature Pulse Rate 101 H 94 H 94 H Pulse Rate [ From Monitor] Respiratory 14 13 14 Rate Blood Pressure 92/47 96/44 96/44 O2 Sat by Pulse 100 100 100 Oximetry 08/28/19 08/28/19 08/28/19 08:00 09:00 09:10 Temperature 97.9 F Pulse Rate 92 H 92 H 96 H Pulse Rate [ 92 H From Monitor] Respiratory 24 19 Rate Blood Pressure 106/63 106/63 106/63 O2 Sat by Pulse 98 98 Oximetry 08/28/19 08/28/19 08/28/19 10:00 11:00 11:16 Temperature Pulse Rate 86 94 H 86 Pulse Rate [ From Monitor] Respiratory 19 20 16 Rate Blood Pressure 115/68 106/63 115/68 O2 Sat by Pulse 98 Oximetry 08/28/19 12:00 Temperature 97.9 F Pulse Rate 91 H Pulse Rate [ 91 H From Monitor] Respiratory 21 Rate Blood Pressure 110/68 O2 Sat by Pulse 98 Oximetry Constitutional: appears uncomfortable, other (eelderly and chronically ill looking AAM, normocep[krystina;ic with mildly increased respiratory effort at rest) Eyes: non-icteric ENT: oropharynx moist, other (ETT 24 cm RUTH) Neck: supple, no lymphadenopathy, no JVD Effort: mildly labored Ascultation: Bilateral: diminished breath sounds, rhonchi Percussion: Bilateral: not dull Cardiovascular: regular rate and rhythm Gastrointestinal: normoactive bowel sounds, soft, non-tender, non-distended, other (+ PEG tube with mild TF leakage) Integumentary: decubitus ulcer (sacral) Extremities: no cyanosis, no edema, pink and warm, pulses normal Neurologic: pupils equal and round, unable to assess Psychiatric: other (Unable to assess re: AMS) CBC and BMP: 08/27/19 07:21 08/27/19 07:21 ABG, PT/INR, D-dimer: ABG ABG pH 7.405 pH Units (7.350-7.450) 08/17/19 20:20 ABG pCO2 45.3 mm Hg 08/17/19 20:20 ABG pO2 84.2 mm Hg (80.0-90.0) 08/17/19 20:20 ABG O2 Saturation 96.9 % (95.0-99.0) 08/17/19 20:20 PT/INR, D-dimer PT 16.0 Sec. (12.2-14.9) H 07/03/19 22:20 INR 1.26 (0.87-1.13) H 07/03/19 22:20 D-Dimer 1808.06 ng/mlDDU (0-234) H 08/07/19 10:24 Abnormal lab findings: Abnormal Labs 07/03/19 07/03/19 07/03/19 19:57 21:10 21:13 WBC RBC Hgb Hct MCV MCH MCHC RDW Plt Count Lymph % (Auto) [place] % (Auto) Lymph # [place] # Baso # Seg Neutrophils % Seg Neuts % (Manual) Lymphocytes % (Manual) Monocytes % (Manual) Basophils % (Manual) Nucleated RBC % Seg Neutrophils # Seg Neutrophils # Man Lymphocytes # (Manual) Monocytes # (Manual) Eosinophils # (Manual) Basophils # (Manual) PT INR D-Dimer ABG pH 7.238 L ABG pO2 210.8 H ABG HCO3 15.4 L ABG O2 Saturation 99.2 H ABG Base Excess -11.1 L ABG Hemoglobin 8.0 L Oxyhemoglobin Sodium 124 L Potassium Chloride 92.9 L Carbon Dioxide 10 L BUN 23 H Creatinine 0.5 L Glucose 118 H POC Glucose Lactic Acid Calcium 7.0 L Magnesium Iron TIBC Ferritin AST 70 H ALT 88 H Lactate Dehydrogenase Troponin T 0.032 H C-Reactive Protein Total Protein 5.0 L Albumin 1.8 L Prealbumin Cholesterol 47 L LDL Cholesterol Direct 25 L HDL Cholesterol 20 L Urine WBC (Auto) 12.0 H Vancomycin Trough Coronavirus (PCR) Crossmatch 07/03/19 07/03/19 07/03/19 22:20 22:20 22:20 WBC 30.5 H RBC 2.96 L Hgb 7.7 L Hct 23.9 L MCV 81 L MCH 26 L MCHC RDW 18.6 H Plt Count 459 H Lymph % (Auto) [place] % (Auto) Lymph # [place] # Baso # Seg Neutrophils % Seg Neuts % (Manual) 93.0 H Lymphocytes % (Manual) 0.5 L Monocytes % (Manual) Basophils % (Manual) Nucleated RBC % Seg Neutrophils # Seg Neutrophils # Man 28.4 H Lymphocytes # (Manual) 0.2 L Monocytes # (Manual) Eosinophils # (Manual) Basophils # (Manual) PT 16.0 H INR 1.26 H D-Dimer ABG pH ABG pO2 ABG HCO3 ABG O2 Saturation ABG Base Excess ABG Hemoglobin Oxyhemoglobin Sodium Potassium Chloride Carbon Dioxide BUN Creatinine Glucose POC Glucose Lactic Acid 6.90 H* Calcium Magnesium Iron TIBC Ferritin AST ALT Lactate Dehydrogenase Troponin T C-Reactive Protein Total Protein Albumin Prealbumin Cholesterol LDL Cholesterol Direct HDL Cholesterol Urine WBC (Auto) Vancomycin Trough Coronavirus (PCR) Crossmatch 07/03/19 07/04/19 07/04/19 23:58 05:15 07:05 WBC 17.1 H RBC 3.22 L Hgb 8.3 L Hct 25.4 L MCV 79 L MCH 26 L MCHC RDW 18.6 H Plt Count Lymph % (Auto) [place] % (Auto) Lymph # [place] # Baso # Seg Neutrophils % Seg Neuts % (Manual) 74.0 H Lymphocytes % (Manual) 0 L Monocytes % (Manual) Basophils % (Manual) Nucleated RBC % Seg Neutrophils # Seg Neutrophils # Man 12.7 H Lymphocytes # (Manual) 0.0 L Monocytes # (Manual) Eosinophils # (Manual) Basophils # (Manual) PT INR D-Dimer ABG pH 7.310 L ABG pO2 73.2 L ABG HCO3 17.8 L ABG O2 Saturation 93.8 L ABG Base Excess -7.7 L ABG Hemoglobin 9.6 L Oxyhemoglobin 92.3 L Sodium Potassium Chloride Carbon Dioxide BUN Creatinine Glucose POC Glucose Lactic Acid 7.10 H* Calcium Magnesium Iron TIBC Ferritin AST ALT Lactate Dehydrogenase Troponin T C-Reactive Protein Total Protein Albumin Prealbumin Cholesterol LDL Cholesterol Direct HDL Cholesterol Urine WBC (Auto) Vancomycin Trough Coronavirus (PCR) Crossmatch 07/04/19 07/04/19 07/04/19 07:05 07:05 07:05 WBC RBC Hgb Hct MCV MCH MCHC RDW Plt Count Lymph % (Auto) [place] % (Auto) Lymph # [place] # Baso # Seg Neutrophils % Seg Neuts % (Manual) Lymphocytes % (Manual) Monocytes % (Manual) Basophils % (Manual) Nucleated RBC % Seg Neutrophils # Seg Neutrophils # Man Lymphocytes # (Manual) Monocytes # (Manual) Eosinophils # (Manual) Basophils # (Manual) PT INR D-Dimer ABG pH ABG pO2 ABG HCO3 ABG O2 Saturation ABG Base Excess ABG Hemoglobin Oxyhemoglobin Sodium 120 L Potassium 5.1 H Chloride 90.0 L Carbon Dioxide 14 L BUN 26 H Creatinine 0.5 L Glucose POC Glucose Lactic Acid 3.30 H* Calcium 8.0 L Magnesium Iron 9 L TIBC 97 L Ferritin AST 73 H ALT 91 H Lactate Dehydrogenase Troponin T C-Reactive Protein Total Protein 5.5 L Albumin 2.0 L Prealbumin Cholesterol LDL Cholesterol Direct HDL Cholesterol Urine WBC (Auto) Vancomycin Trough Coronavirus (PCR) Crossmatch 07/04/19 07/04/19 07/04/19 09:39 09:39 09:39 WBC RBC Hgb Hct MCV MCH MCHC RDW Plt Count Lymph % (Auto) [place] % (Auto) Lymph # [place] # Baso # Seg Neutrophils % Seg Neuts % (Manual) Lymphocytes % (Manual) Monocytes % (Manual) Basophils % (Manual) Nucleated RBC % Seg Neutrophils # Seg Neutrophils # Man Lymphocytes # (Manual) Monocytes # (Manual) Eosinophils # (Manual) Basophils # (Manual) PT INR D-Dimer 1419.14 H ABG pH ABG pO2 ABG HCO3 ABG O2 Saturation ABG Base Excess ABG Hemoglobin Oxyhemoglobin Sodium Potassium Chloride Carbon Dioxide BUN Creatinine Glucose POC Glucose Lactic Acid Calcium Magnesium Iron TIBC Ferritin 1719.0 H AST ALT Lactate Dehydrogenase 234 H Troponin T C-Reactive Protein 15.50 H Total Protein Albumin Prealbumin Cholesterol LDL Cholesterol Direct HDL Cholesterol Urine WBC (Auto) Vancomycin Trough Coronavirus (PCR) Crossmatch 07/04/19 07/04/19 07/04/19 10:09 18:08 18:28 WBC RBC Hgb Hct MCV MCH MCHC RDW Plt Count Lymph % (Auto) [place] % (Auto) Lymph # [place] # Baso # Seg Neutrophils % Seg Neuts % (Manual) Lymphocytes % (Manual) Monocytes % (Manual) Basophils % (Manual) Nucleated RBC % Seg Neutrophils # Seg Neutrophils # Man Lymphocytes # (Manual) Monocytes # (Manual) Eosinophils # (Manual) Basophils # (Manual) PT INR D-Dimer ABG pH ABG pO2 ABG HCO3 ABG O2 Saturation ABG Base Excess ABG Hemoglobin Oxyhemoglobin Sodium 117 L* Potassium 5.6 H Chloride 90.3 L Carbon Dioxide 16 L BUN 28 H Creatinine 0.5 L Glucose 58 L POC Glucose 65 L Lactic Acid Calcium 8.2 L Magnesium Iron TIBC Ferritin AST ALT Lactate Dehydrogenase Troponin T C-Reactive Protein Total Protein Albumin Prealbumin Cholesterol LDL Cholesterol Direct HDL Cholesterol Urine WBC (Auto) Vancomycin Trough Coronavirus (PCR) Positive A Crossmatch 07/04/19 07/04/19 07/04/19 23:45 Unknown Unknown WBC RBC Hgb Hct MCV MCH MCHC RDW Plt Count Lymph % (Auto) [place] % (Auto) Lymph # [place] # Baso # Seg Neutrophils % Seg Neuts % (Manual) Lymphocytes % (Manual) Monocytes % (Manual) Basophils % (Manual) Nucleated RBC % Seg Neutrophils # Seg Neutrophils # Man Lymphocytes # (Manual) Monocytes # (Manual) Eosinophils # (Manual) Basophils # (Manual) PT INR D-Dimer 759.77 H ABG pH ABG pO2 ABG HCO3 ABG O2 Saturation ABG Base Excess ABG Hemoglobin Oxyhemoglobin Sodium 122 L Potassium Chloride 93.0 L Carbon Dioxide 19 L BUN 27 H Creatinine 0.5 L Glucose POC Glucose Lactic Acid Calcium 8.3 L Magnesium Iron TIBC Ferritin 1301.0 H AST ALT Lactate Dehydrogenase Troponin T C-Reactive Protein Total Protein Albumin Prealbumin Cholesterol LDL Cholesterol Direct HDL Cholesterol Urine WBC (Auto) Vancomycin Trough Coronavirus (PCR) Crossmatch 07/04/19 07/05/19 07/05/19 Unknown 03:20 04:00 WBC RBC Hgb Hct MCV MCH MCHC RDW Plt Count Lymph % (Auto) [place] % (Auto) Lymph # [place] # Baso # Seg Neutrophils % Seg Neuts % (Manual) Lymphocytes % (Manual) Monocytes % (Manual) Basophils % (Manual) Nucleated RBC % Seg Neutrophils # Seg Neutrophils # Man Lymphocytes # (Manual) Monocytes # (Manual) Eosinophils # (Manual) Basophils # (Manual) PT INR D-Dimer ABG pH ABG pO2 60.6 L ABG HCO3 ABG O2 Saturation 93.5 L ABG Base Excess -2.4 L ABG Hemoglobin 6.9 L Oxyhemoglobin 92.0 L Sodium 125 L Potassium Chloride 92.6 L Carbon Dioxide 19 L BUN 24 H Creatinine 0.6 L Glucose POC Glucose Lactic Acid Calcium 8.2 L Magnesium 1.40 L Iron TIBC Ferritin AST ALT Lactate Dehydrogenase 242 H Troponin T C-Reactive Protein 16.70 H Total Protein Albumin Prealbumin Cholesterol LDL Cholesterol Direct HDL Cholesterol Urine WBC (Auto) Vancomycin Trough Coronavirus (PCR) Crossmatch 07/05/19 07/05/19 07/05/19 10:11 16:15 17:54 WBC 46.4 H* RBC 2.77 L Hgb 7.2 L Hct 21.9 L MCV 79 L MCH 26 L MCHC RDW 19.0 H Plt Count Lymph % (Auto) [place] % (Auto) Lymph # [place] # Baso # Seg Neutrophils % Seg Neuts % (Manual) 82.0 H Lymphocytes % (Manual) 1.0 L Monocytes % (Manual) Basophils % (Manual) Nucleated RBC % Seg Neutrophils # Seg Neutrophils # Man 38.0 H Lymphocytes # (Manual) 0.5 L Monocytes # (Manual) Eosinophils # (Manual) Basophils # (Manual) PT INR D-Dimer ABG pH ABG pO2 ABG HCO3 ABG O2 Saturation ABG Base Excess ABG Hemoglobin Oxyhemoglobin Sodium Potassium Chloride Carbon Dioxide BUN Creatinine Glucose POC Glucose 69 L Lactic Acid Calcium Magnesium Iron TIBC Ferritin AST ALT Lactate Dehydrogenase Troponin T C-Reactive Protein Total Protein Albumin Prealbumin Cholesterol LDL Cholesterol Direct HDL Cholesterol Urine WBC (Auto) Vancomycin Trough 23.2 H Coronavirus (PCR) Crossmatch 07/05/19 07/06/19 07/06/19 19:58 00:27 00:27 WBC RBC Hgb Hct MCV MCH MCHC RDW Plt Count Lymph % (Auto) [place] % (Auto) Lymph # [place] # Baso # Seg Neutrophils % Seg Neuts % (Manual) Lymphocytes % (Manual) Monocytes % (Manual) Basophils % (Manual) Nucleated RBC % Seg Neutrophils # Seg Neutrophils # Man Lymphocytes # (Manual) Monocytes # (Manual) Eosinophils # (Manual) Basophils # (Manual) PT INR D-Dimer 1333.22 H ABG pH ABG pO2 ABG HCO3 ABG O2 Saturation ABG Base Excess ABG Hemoglobin Oxyhemoglobin Sodium 127 L Potassium Chloride Carbon Dioxide BUN Creatinine Glucose POC Glucose Lactic Acid Calcium Magnesium Iron TIBC Ferritin 977.1 H AST ALT Lactate Dehydrogenase Troponin T C-Reactive Protein Total Protein Albumin Prealbumin Cholesterol LDL Cholesterol Direct HDL Cholesterol Urine WBC (Auto) Vancomycin Trough Coronavirus (PCR) Crossmatch 07/06/19 07/06/19 07/06/19 00:27 02:00 02:56 WBC RBC Hgb Hct MCV MCH MCHC RDW Plt Count Lymph % (Auto) [place] % (Auto) Lymph # [place] # Baso # Seg Neutrophils % Seg Neuts % (Manual) Lymphocytes % (Manual) Monocytes % (Manual) Basophils % (Manual) Nucleated RBC % Seg Neutrophils # Seg Neutrophils # Man Lymphocytes # (Manual) Monocytes # (Manual) Eosinophils # (Manual) Basophils # (Manual) PT INR D-Dimer ABG pH ABG pO2 70.3 L ABG HCO3 ABG O2 Saturation 94.8 L ABG Base Excess ABG Hemoglobin 8.0 L Oxyhemoglobin 93.2 L Sodium Potassium Chloride Carbon Dioxide BUN Creatinine Glucose POC Glucose 117 H Lactic Acid Calcium Magnesium Iron TIBC Ferritin AST ALT Lactate Dehydrogenase 236 H Troponin T C-Reactive Protein 22.90 H Total Protein Albumin Prealbumin Cholesterol LDL Cholesterol Direct HDL Cholesterol Urine WBC (Auto) Vancomycin Trough Coronavirus (PCR) Crossmatch 07/06/19 07/06/19 07/06/19 03:49 03:49 07:40 WBC 38.8 H RBC 2.51 L Hgb 6.7 L Hct 19.9 L* MCV 79 L MCH 27 L MCHC RDW 19.2 H Plt Count Lymph % (Auto) [place] % (Auto) Lymph # [place] # Baso # Seg Neutrophils % Seg Neuts % (Manual) 90.5 H Lymphocytes % (Manual) 1.0 L Monocytes % (Manual) Basophils % (Manual) Nucleated RBC % Seg Neutrophils # Seg Neutrophils # Man 35.1 H Lymphocytes # (Manual) 0.4 L Monocytes # (Manual) Eosinophils # (Manual) Basophils # (Manual) PT INR D-Dimer ABG pH ABG pO2 ABG HCO3 ABG O2 Saturation ABG Base Excess ABG Hemoglobin Oxyhemoglobin Sodium 131 L Potassium Chloride 96.9 L Carbon Dioxide 18 L BUN 23 H Creatinine 0.5 L Glucose POC Glucose Lactic Acid Calcium 8.0 L Magnesium Iron TIBC Ferritin AST ALT Lactate Dehydrogenase Troponin T C-Reactive Protein Total Protein Albumin Prealbumin Cholesterol LDL Cholesterol Direct HDL Cholesterol Urine WBC (Auto) Vancomycin Trough Coronavirus (PCR) Crossmatch See Detail 07/06/19 07/06/19 07/06/19 12:38 14:39 20:00 WBC RBC Hgb Hct MCV MCH MCHC RDW Plt Count Lymph % (Auto) [place] % (Auto) Lymph # [place] # Baso # Seg Neutrophils % Seg Neuts % (Manual) Lymphocytes % (Manual) Monocytes % (Manual) Basophils % (Manual) Nucleated RBC % Seg Neutrophils # Seg Neutrophils # Man Lymphocytes # (Manual) Monocytes # (Manual) Eosinophils # (Manual) Basophils # (Manual) PT INR D-Dimer ABG pH ABG pO2 ABG HCO3 ABG O2 Saturation ABG Base Excess ABG Hemoglobin Oxyhemoglobin Sodium Potassium Chloride Carbon Dioxide BUN Creatinine Glucose POC Glucose 112 H 111 H 140 H Lactic Acid Calcium Magnesium Iron TIBC Ferritin AST ALT Lactate Dehydrogenase Troponin T C-Reactive Protein Total Protein Albumin Prealbumin Cholesterol LDL Cholesterol Direct HDL Cholesterol Urine WBC (Auto) Vancomycin Trough Coronavirus (PCR) Crossmatch 07/06/19 07/06/19 07/07/19 22:43 22:56 02:20 WBC RBC Hgb 7.9 L Hct 23.1 L MCV MCH MCHC RDW Plt Count Lymph % (Auto) [place] % (Auto) Lymph # [place] # Baso # Seg Neutrophils % Seg Neuts % (Manual) Lymphocytes % (Manual) Monocytes % (Manual) Basophils % (Manual) Nucleated RBC % Seg Neutrophils # Seg Neutrophils # Man Lymphocytes # (Manual) Monocytes # (Manual) Eosinophils # (Manual) Basophils # (Manual) PT INR D-Dimer ABG pH ABG pO2 ABG HCO3 ABG O2 Saturation ABG Base Excess ABG Hemoglobin Oxyhemoglobin Sodium Potassium Chloride Carbon Dioxide BUN Creatinine Glucose POC Glucose 122 H 149 H Lactic Acid Calcium Magnesium Iron TIBC Ferritin AST ALT Lactate Dehydrogenase Troponin T C-Reactive Protein Total Protein Albumin Prealbumin Cholesterol LDL Cholesterol Direct HDL Cholesterol Urine WBC (Auto) Vancomycin Trough Coronavirus (PCR) Crossmatch 07/07/19 07/07/19 07/07/19 04:35 05:27 05:34 WBC 23.1 H RBC 3.00 L Hgb 8.1 L Hct 24.2 L MCV 81 L MCH 27 L MCHC RDW 20.6 H Plt Count Lymph % (Auto) [place] % (Auto) Lymph # [place] # Baso # Seg Neutrophils % Seg Neuts % (Manual) 90.0 H Lymphocytes % (Manual) 2.0 L Monocytes % (Manual) Basophils % (Manual) Nucleated RBC % Seg Neutrophils # Seg Neutrophils # Man 20.8 H Lymphocytes # (Manual) 0.5 L Monocytes # (Manual) Eosinophils # (Manual) Basophils # (Manual) PT INR D-Dimer ABG pH ABG pO2 65.8 L ABG HCO3 ABG O2 Saturation 92.2 L ABG Base Excess ABG Hemoglobin 8.3 L Oxyhemoglobin 90.6 L Sodium Potassium Chloride Carbon Dioxide BUN Creatinine Glucose POC Glucose 132 H Lactic Acid Calcium Magnesium Iron TIBC Ferritin AST ALT Lactate Dehydrogenase Troponin T C-Reactive Protein Total Protein Albumin Prealbumin Cholesterol LDL Cholesterol Direct HDL Cholesterol Urine WBC (Auto) Vancomycin Trough Coronavirus (PCR) Crossmatch 07/07/19 07/07/19 07/07/19 05:34 11:50 15:58 WBC RBC Hgb 8.1 L Hct 24.2 L MCV MCH MCHC RDW Plt Count Lymph % (Auto) [place] % (Auto) Lymph # [place] # Baso # Seg Neutrophils % Seg Neuts % (Manual) Lymphocytes % (Manual) Monocytes % (Manual) Basophils % (Manual) Nucleated RBC % Seg Neutrophils # Seg Neutrophils # Man Lymphocytes # (Manual) Monocytes # (Manual) Eosinophils # (Manual) Basophils # (Manual) PT INR D-Dimer ABG pH ABG pO2 ABG HCO3 ABG O2 Saturation ABG Base Excess ABG Hemoglobin Oxyhemoglobin Sodium 135 L Potassium 3.3 L Chloride Carbon Dioxide 20 L BUN 27 H Creatinine 0.6 L Glucose 121 H POC Glucose 123 H Lactic Acid Calcium 8.0 L Magnesium Iron TIBC Ferritin AST ALT Lactate Dehydrogenase Troponin T C-Reactive Protein Total Protein Albumin Prealbumin Cholesterol LDL Cholesterol Direct HDL Cholesterol Urine WBC (Auto) Vancomycin Trough Coronavirus (PCR) Crossmatch 07/07/19 07/07/19 07/07/19 17:42 22:00 23:53 WBC RBC Hgb 8.0 L Hct 23.4 L MCV MCH MCHC RDW Plt Count Lymph % (Auto) [place] % (Auto) Lymph # [place] # Baso # Seg Neutrophils % Seg Neuts % (Manual) Lymphocytes % (Manual) Monocytes % (Manual) Basophils % (Manual) Nucleated RBC % Seg Neutrophils # Seg Neutrophils # Man Lymphocytes # (Manual) Monocytes # (Manual) Eosinophils # (Manual) Basophils # (Manual) PT INR D-Dimer ABG pH ABG pO2 ABG HCO3 ABG O2 Saturation ABG Base Excess ABG Hemoglobin Oxyhemoglobin Sodium Potassium Chloride Carbon Dioxide BUN Creatinine Glucose POC Glucose 107 H 117 H Lactic Acid Calcium Magnesium Iron TIBC Ferritin AST ALT Lactate Dehydrogenase Troponin T C-Reactive Protein Total Protein Albumin Prealbumin Cholesterol LDL Cholesterol Direct HDL Cholesterol Urine WBC (Auto) Vancomycin Trough Coronavirus (PCR) Crossmatch 07/08/19 07/08/19 07/08/19 00:45 00:45 00:45 WBC RBC Hgb Hct MCV MCH MCHC RDW Plt Count Lymph % (Auto) [place] % (Auto) Lymph # [place] # Baso # Seg Neutrophils % Seg Neuts % (Manual) Lymphocytes % (Manual) Monocytes % (Manual) Basophils % (Manual) Nucleated RBC % Seg Neutrophils # Seg Neutrophils # Man Lymphocytes # (Manual) Monocytes # (Manual) Eosinophils # (Manual) Basophils # (Manual) PT INR D-Dimer 1142.18 H ABG pH ABG pO2 ABG HCO3 ABG O2 Saturation ABG Base Excess ABG Hemoglobin Oxyhemoglobin Sodium Potassium Chloride Carbon Dioxide BUN Creatinine Glucose POC Glucose Lactic Acid Calcium Magnesium Iron TIBC Ferritin 839.0 H AST ALT Lactate Dehydrogenase 253 H Troponin T C-Reactive Protein 18.90 H Total Protein Albumin Prealbumin Cholesterol LDL Cholesterol Direct HDL Cholesterol Urine WBC (Auto) Vancomycin Trough Coronavirus (PCR) Crossmatch 07/08/19 07/08/19 07/08/19 04:30 05:11 12:02 WBC RBC Hgb Hct MCV MCH MCHC RDW Plt Count Lymph % (Auto) [place] % (Auto) Lymph # [place] # Baso # Seg Neutrophils % Seg Neuts % (Manual) Lymphocytes % (Manual) Monocytes % (Manual) Basophils % (Manual) Nucleated RBC % Seg Neutrophils # Seg Neutrophils # Man Lymphocytes # (Manual) Monocytes # (Manual) Eosinophils # (Manual) Basophils # (Manual) PT INR D-Dimer ABG pH ABG pO2 66.0 L ABG HCO3 ABG O2 Saturation 92.3 L ABG Base Excess ABG Hemoglobin 7.7 L Oxyhemoglobin 90.7 L Sodium Potassium Chloride Carbon Dioxide BUN Creatinine Glucose POC Glucose 108 H 153 H Lactic Acid Calcium Magnesium Iron TIBC Ferritin AST ALT Lactate Dehydrogenase Troponin T C-Reactive Protein Total Protein Albumin Prealbumin Cholesterol LDL Cholesterol Direct HDL Cholesterol Urine WBC (Auto) Vancomycin Trough Coronavirus (PCR) Crossmatch 07/08/19 07/08/19 07/08/19 16:15 18:22 23:35 WBC RBC Hgb Hct MCV MCH MCHC RDW Plt Count Lymph % (Auto) [place] % (Auto) Lymph # [place] # Baso # Seg Neutrophils % Seg Neuts % (Manual) Lymphocytes % (Manual) Monocytes % (Manual) Basophils % (Manual) Nucleated RBC % Seg Neutrophils # Seg Neutrophils # Man Lymphocytes # (Manual) Monocytes # (Manual) Eosinophils # (Manual) Basophils # (Manual) PT INR D-Dimer ABG pH ABG pO2 ABG HCO3 ABG O2 Saturation ABG Base Excess ABG Hemoglobin Oxyhemoglobin Sodium 134 L Potassium 3.3 L Chloride Carbon Dioxide 21 L BUN 27 H Creatinine 0.6 L Glucose 146 H POC Glucose 134 H 133 H Lactic Acid Calcium Magnesium Iron TIBC Ferritin AST ALT Lactate Dehydrogenase Troponin T C-Reactive Protein Total Protein Albumin Prealbumin Cholesterol LDL Cholesterol Direct HDL Cholesterol Urine WBC (Auto) Vancomycin Trough Coronavirus (PCR) Crossmatch 07/09/19 07/09/19 07/09/19 04:30 04:30 05:00 WBC 18.9 H RBC 2.77 L Hgb 7.4 L Hct 22.8 L MCV 82 L MCH 27 L MCHC RDW 20.9 H Plt Count 130 L Lymph % (Auto) [place] % (Auto) Lymph # [place] # Baso # Seg Neutrophils % Seg Neuts % (Manual) 84.0 H Lymphocytes % (Manual) 0 L Monocytes % (Manual) Basophils % (Manual) Nucleated RBC % Seg Neutrophils # Seg Neutrophils # Man 15.9 H Lymphocytes # (Manual) 0.0 L Monocytes # (Manual) Eosinophils # (Manual) Basophils # (Manual) PT INR D-Dimer ABG pH ABG pO2 ABG HCO3 ABG O2 Saturation ABG Base Excess ABG Hemoglobin Oxyhemoglobin Sodium Potassium 3.1 L Chloride Carbon Dioxide BUN 26 H Creatinine 0.5 L Glucose 125 H POC Glucose 155 H Lactic Acid Calcium Magnesium Iron TIBC Ferritin AST ALT Lactate Dehydrogenase Troponin T C-Reactive Protein Total Protein Albumin Prealbumin Cholesterol LDL Cholesterol Direct HDL Cholesterol Urine WBC (Auto) Vancomycin Trough Coronavirus (PCR) Crossmatch 07/09/19 07/09/19 07/09/19 05:55 12:22 17:50 WBC RBC Hgb Hct MCV MCH MCHC RDW Plt Count Lymph % (Auto) [place] % (Auto) Lymph # [place] # Baso # Seg Neutrophils % Seg Neuts % (Manual) Lymphocytes % (Manual) Monocytes % (Manual) Basophils % (Manual) Nucleated RBC % Seg Neutrophils # Seg Neutrophils # Man Lymphocytes # (Manual) Monocytes # (Manual) Eosinophils # (Manual) Basophils # (Manual) PT INR D-Dimer ABG pH ABG pO2 62.8 L ABG HCO3 ABG O2 Saturation ABG Base Excess ABG Hemoglobin 6.1 L Oxyhemoglobin 93.9 L Sodium Potassium Chloride Carbon Dioxide BUN Creatinine Glucose POC Glucose 115 H 133 H Lactic Acid Calcium Magnesium Iron TIBC Ferritin AST ALT Lactate Dehydrogenase Troponin T C-Reactive Protein Total Protein Albumin Prealbumin Cholesterol LDL Cholesterol Direct HDL Cholesterol Urine WBC (Auto) Vancomycin Trough Coronavirus (PCR) Crossmatch 07/10/19 07/10/19 07/10/19 00:38 04:00 04:00 WBC RBC Hgb Hct MCV MCH MCHC RDW Plt Count Lymph % (Auto) [place] % (Auto) Lymph # [place] # Baso # Seg Neutrophils % Seg Neuts % (Manual) Lymphocytes % (Manual) Monocytes % (Manual) Basophils % (Manual) Nucleated RBC % Seg Neutrophils # Seg Neutrophils # Man Lymphocytes # (Manual) Monocytes # (Manual) Eosinophils # (Manual) Basophils # (Manual) PT INR D-Dimer ABG pH ABG pO2 ABG HCO3 ABG O2 Saturation ABG Base Excess ABG Hemoglobin Oxyhemoglobin Sodium Potassium Chloride 107.9 H Carbon Dioxide BUN 26 H Creatinine 0.4 L Glucose 137 H POC Glucose 122 H Lactic Acid Calcium Magnesium 1.50 L Iron TIBC Ferritin AST ALT Lactate Dehydrogenase 277 H Troponin T C-Reactive Protein 15.10 H Total Protein Albumin Prealbumin Cholesterol LDL Cholesterol Direct HDL Cholesterol Urine WBC (Auto) Vancomycin Trough Coronavirus (PCR) Crossmatch 07/10/19 07/10/19 07/10/19 04:07 05:21 17:25 WBC RBC Hgb Hct MCV MCH MCHC RDW Plt Count Lymph % (Auto) [place] % (Auto) Lymph # [place] # Baso # Seg Neutrophils % Seg Neuts % (Manual) Lymphocytes % (Manual) Monocytes % (Manual) Basophils % (Manual) Nucleated RBC % Seg Neutrophils # Seg Neutrophils # Man Lymphocytes # (Manual) Monocytes # (Manual) Eosinophils # (Manual) Basophils # (Manual) PT INR D-Dimer ABG pH ABG pO2 65.6 L ABG HCO3 26.3 H ABG O2 Saturation ABG Base Excess ABG Hemoglobin 6.7 L Oxyhemoglobin Sodium Potassium Chloride Carbon Dioxide BUN Creatinine Glucose POC Glucose 144 H 113 H Lactic Acid Calcium Magnesium Iron TIBC Ferritin AST ALT Lactate Dehydrogenase Troponin T C-Reactive Protein Total Protein Albumin Prealbumin Cholesterol LDL Cholesterol Direct HDL Cholesterol Urine WBC (Auto) Vancomycin Trough Coronavirus (PCR) Crossmatch 07/11/19 07/11/19 07/11/19 00:07 05:14 05:25 WBC RBC Hgb Hct MCV MCH MCHC RDW Plt Count Lymph % (Auto) [place] % (Auto) Lymph # [place] # Baso # Seg Neutrophils % Seg Neuts % (Manual) Lymphocytes % (Manual) Monocytes % (Manual) Basophils % (Manual) Nucleated RBC % Seg Neutrophils # Seg Neutrophils # Man Lymphocytes # (Manual) Monocytes # (Manual) Eosinophils # (Manual) Basophils # (Manual) PT INR D-Dimer ABG pH ABG pO2 ABG HCO3 ABG O2 Saturation ABG Base Excess ABG Hemoglobin 5.8 L Oxyhemoglobin Sodium Potassium Chloride 108.0 H Carbon Dioxide BUN 26 H Creatinine 0.4 L Glucose 110 H POC Glucose 121 H Lactic Acid Calcium Magnesium Iron TIBC Ferritin AST ALT Lactate Dehydrogenase Troponin T C-Reactive Protein Total Protein Albumin Prealbumin Cholesterol LDL Cholesterol Direct HDL Cholesterol Urine WBC (Auto) Vancomycin Trough Coronavirus (PCR) Crossmatch 07/11/19 07/11/19 07/11/19 12:27 18:00 23:42 WBC RBC Hgb Hct MCV MCH MCHC RDW Plt Count Lymph % (Auto) [place] % (Auto) Lymph # [place] # Baso # Seg Neutrophils % Seg Neuts % (Manual) Lymphocytes % (Manual) Monocytes % (Manual) Basophils % (Manual) Nucleated RBC % Seg Neutrophils # Seg Neutrophils # Man Lymphocytes # (Manual) Monocytes # (Manual) Eosinophils # (Manual) Basophils # (Manual) PT INR D-Dimer ABG pH ABG pO2 ABG HCO3 ABG O2 Saturation ABG Base Excess ABG Hemoglobin Oxyhemoglobin Sodium Potassium Chloride Carbon Dioxide BUN Creatinine Glucose POC Glucose 158 H 141 H 142 H Lactic Acid Calcium Magnesium Iron TIBC Ferritin AST ALT Lactate Dehydrogenase Troponin T C-Reactive Protein Total Protein Albumin Prealbumin Cholesterol LDL Cholesterol Direct HDL Cholesterol Urine WBC (Auto) Vancomycin Trough Coronavirus (PCR) Crossmatch 07/12/19 07/12/19 07/12/19 04:46 04:46 05:23 WBC 23.6 H RBC 2.51 L Hgb 6.7 L Hct 20.8 L MCV 83 L MCH 27 L MCHC RDW 20.3 H Plt Count Lymph % (Auto) [place] % (Auto) Lymph # [place] # Baso # Seg Neutrophils % Seg Neuts % (Manual) 94.0 H Lymphocytes % (Manual) 4.0 L Monocytes % (Manual) Basophils % (Manual) Nucleated RBC % Seg Neutrophils # Seg Neutrophils # Man 22.2 H Lymphocytes # (Manual) 0.9 L Monocytes # (Manual) Eosinophils # (Manual) Basophils # (Manual) PT INR D-Dimer ABG pH ABG pO2 ABG HCO3 ABG O2 Saturation ABG Base Excess ABG Hemoglobin Oxyhemoglobin Sodium Potassium Chloride 107.1 H Carbon Dioxide BUN 25 H Creatinine 0.4 L Glucose 122 H POC Glucose 118 H Lactic Acid Calcium Magnesium Iron TIBC Ferritin AST ALT Lactate Dehydrogenase Troponin T C-Reactive Protein Total Protein Albumin Prealbumin Cholesterol LDL Cholesterol Direct HDL Cholesterol Urine WBC (Auto) Vancomycin Trough Coronavirus (PCR) Crossmatch 07/12/19 07/12/19 07/12/19 08:49 11:36 18:15 WBC RBC Hgb Hct MCV MCH MCHC RDW Plt Count Lymph % (Auto) [place] % (Auto) Lymph # [place] # Baso # Seg Neutrophils % Seg Neuts % (Manual) Lymphocytes % (Manual) Monocytes % (Manual) Basophils % (Manual) Nucleated RBC % Seg Neutrophils # Seg Neutrophils # Man Lymphocytes # (Manual) Monocytes # (Manual) Eosinophils # (Manual) Basophils # (Manual) PT INR D-Dimer ABG pH ABG pO2 ABG HCO3 ABG O2 Saturation ABG Base Excess ABG Hemoglobin Oxyhemoglobin Sodium Potassium Chloride Carbon Dioxide BUN Creatinine Glucose POC Glucose 124 H 110 H Lactic Acid Calcium Magnesium Iron TIBC Ferritin AST ALT Lactate Dehydrogenase Troponin T C-Reactive Protein Total Protein Albumin Prealbumin Cholesterol LDL Cholesterol Direct HDL Cholesterol Urine WBC (Auto) Vancomycin Trough Coronavirus (PCR) Crossmatch See Detail 07/12/19 07/13/19 07/13/19 23:16 05:26 06:50 WBC 23.9 H RBC 2.58 L Hgb 6.9 L Hct 21.5 L MCV 83 L MCH 27 L MCHC RDW 19.0 H Plt Count Lymph % (Auto) [place] % (Auto) Lymph # [place] # Baso # Seg Neutrophils % Seg Neuts % (Manual) 96.0 H Lymphocytes % (Manual) 3.0 L Monocytes % (Manual) Basophils % (Manual) Nucleated RBC % Seg Neutrophils # Seg Neutrophils # Man 22.9 H Lymphocytes # (Manual) 0.7 L Monocytes # (Manual) Eosinophils # (Manual) Basophils # (Manual) PT INR D-Dimer ABG pH ABG pO2 ABG HCO3 ABG O2 Saturation ABG Base Excess ABG Hemoglobin Oxyhemoglobin Sodium Potassium Chloride Carbon Dioxide BUN Creatinine Glucose POC Glucose 108 H 126 H Lactic Acid Calcium Magnesium Iron TIBC Ferritin AST ALT Lactate Dehydrogenase Troponin T C-Reactive Protein Total Protein Albumin Prealbumin Cholesterol LDL Cholesterol Direct HDL Cholesterol Urine WBC (Auto) Vancomycin Trough Coronavirus (PCR) Crossmatch 07/13/19 07/13/19 07/13/19 06:50 12:38 18:05 WBC RBC Hgb Hct MCV MCH MCHC RDW Plt Count Lymph % (Auto) [place] % (Auto) Lymph # [place] # Baso # Seg Neutrophils % Seg Neuts % (Manual) Lymphocytes % (Manual) Monocytes % (Manual) Basophils % (Manual) Nucleated RBC % Seg Neutrophils # Seg Neutrophils # Man Lymphocytes # (Manual) Monocytes # (Manual) Eosinophils # (Manual) Basophils # (Manual) PT INR D-Dimer ABG pH ABG pO2 ABG HCO3 ABG O2 Saturation ABG Base Excess ABG Hemoglobin Oxyhemoglobin Sodium Potassium Chloride Carbon Dioxide BUN 33 H Creatinine 0.5 L Glucose 136 H POC Glucose 164 H 145 H Lactic Acid Calcium Magnesium Iron TIBC Ferritin AST ALT Lactate Dehydrogenase Troponin T C-Reactive Protein Total Protein Albumin Prealbumin Cholesterol LDL Cholesterol Direct HDL Cholesterol Urine WBC (Auto) Vancomycin Trough Coronavirus (PCR) Crossmatch 07/13/19 07/14/19 07/14/19 18:30 00:21 04:40 WBC 22.9 H RBC 2.45 L Hgb 6.6 L Hct 21.1 L MCV MCH 27 L MCHC 31 L RDW 19.2 H Plt Count Lymph % (Auto) [place] % (Auto) Lymph # [place] # Baso # Seg Neutrophils % Seg Neuts % (Manual) 91.0 H Lymphocytes % (Manual) 7.0 L Monocytes % (Manual) Basophils % (Manual) Nucleated RBC % Seg Neutrophils # Seg Neutrophils # Man 20.8 H Lymphocytes # (Manual) Monocytes # (Manual) Eosinophils # (Manual) Basophils # (Manual) PT INR D-Dimer ABG pH ABG pO2 58.1 L ABG HCO3 ABG O2 Saturation 88.7 L ABG Base Excess ABG Hemoglobin 7.8 L Oxyhemoglobin 86.8 L Sodium Potassium Chloride Carbon Dioxide BUN Creatinine Glucose POC Glucose 118 H Lactic Acid Calcium Magnesium Iron TIBC Ferritin AST ALT Lactate Dehydrogenase Troponin T C-Reactive Protein Total Protein Albumin Prealbumin Cholesterol LDL Cholesterol Direct HDL Cholesterol Urine WBC (Auto) Vancomycin Trough Coronavirus (PCR) Crossmatch 07/14/19 07/14/19 07/14/19 04:40 05:38 05:45 WBC RBC Hgb Hct MCV MCH MCHC RDW Plt Count Lymph % (Auto) [place] % (Auto) Lymph # [place] # Baso # Seg Neutrophils % Seg Neuts % (Manual) Lymphocytes % (Manual) Monocytes % (Manual) Basophils % (Manual) Nucleated RBC % Seg Neutrophils # Seg Neutrophils # Man Lymphocytes # (Manual) Monocytes # (Manual) Eosinophils # (Manual) Basophils # (Manual) PT INR D-Dimer ABG pH 7.230 L ABG pO2 72.1 L ABG HCO3 ABG O2 Saturation 89.3 L ABG Base Excess -2.7 L ABG Hemoglobin 6.7 L Oxyhemoglobin 87.7 L Sodium Potassium Chloride 107.4 H Carbon Dioxide BUN 45 H Creatinine Glucose 101 H POC Glucose 154 H Lactic Acid Calcium Magnesium Iron TIBC Ferritin AST ALT Lactate Dehydrogenase Troponin T C-Reactive Protein Total Protein Albumin Prealbumin Cholesterol LDL Cholesterol Direct HDL Cholesterol Urine WBC (Auto) Vancomycin Trough Coronavirus (PCR) Crossmatch 07/14/19 07/14/19 07/14/19 12:25 18:20 19:01 WBC 22.4 H RBC 2.70 L Hgb 7.5 L Hct 23.3 L MCV MCH MCHC RDW 19.5 H Plt Count Lymph % (Auto) [place] % (Auto) Lymph # [place] # Baso # Seg Neutrophils % Seg Neuts % (Manual) Lymphocytes % (Manual) Monocytes % (Manual) Basophils % (Manual) Nucleated RBC % Seg Neutrophils # Seg Neutrophils # Man Lymphocytes # (Manual) Monocytes # (Manual) Eosinophils # (Manual) Basophils # (Manual) PT INR D-Dimer ABG pH ABG pO2 ABG HCO3 ABG O2 Saturation ABG Base Excess ABG Hemoglobin Oxyhemoglobin Sodium Potassium Chloride Carbon Dioxide BUN Creatinine Glucose POC Glucose 136 H 131 H Lactic Acid Calcium Magnesium Iron TIBC Ferritin AST ALT Lactate Dehydrogenase Troponin T C-Reactive Protein Total Protein Albumin Prealbumin Cholesterol LDL Cholesterol Direct HDL Cholesterol Urine WBC (Auto) Vancomycin Trough Coronavirus (PCR) Crossmatch 07/15/19 07/15/19 07/15/19 00:17 04:35 05:18 WBC 20.6 H RBC 2.41 L Hgb 6.8 L Hct 20.7 L MCV MCH MCHC RDW 20.2 H Plt Count Lymph % (Auto) [place] % (Auto) Lymph # [place] # Baso # Seg Neutrophils % Seg Neuts % (Manual) 92.0 H Lymphocytes % (Manual) 5.0 L Monocytes % (Manual) Basophils % (Manual) Nucleated RBC % Seg Neutrophils # Seg Neutrophils # Man 19.0 H Lymphocytes # (Manual) 1.0 L Monocytes # (Manual) Eosinophils # (Manual) Basophils # (Manual) PT INR D-Dimer ABG pH 7.342 L ABG pO2 ABG HCO3 ABG O2 Saturation ABG Base Excess -3.1 L ABG Hemoglobin 7.2 L Oxyhemoglobin 94.9 L Sodium Potassium Chloride Carbon Dioxide BUN Creatinine Glucose POC Glucose 116 H Lactic Acid Calcium Magnesium Iron TIBC Ferritin AST ALT Lactate Dehydrogenase Troponin T C-Reactive Protein Total Protein Albumin Prealbumin Cholesterol LDL Cholesterol Direct HDL Cholesterol Urine WBC (Auto) Vancomycin Trough Coronavirus (PCR) Crossmatch 07/15/19 07/15/19 07/15/19 05:18 05:57 11:28 WBC RBC Hgb Hct MCV MCH MCHC RDW Plt Count Lymph % (Auto) [place] % (Auto) Lymph # [place] # Baso # Seg Neutrophils % Seg Neuts % (Manual) Lymphocytes % (Manual) Monocytes % (Manual) Basophils % (Manual) Nucleated RBC % Seg Neutrophils # Seg Neutrophils # Man Lymphocytes # (Manual) Monocytes # (Manual) Eosinophils # (Manual) Basophils # (Manual) PT INR D-Dimer ABG pH ABG pO2 ABG HCO3 ABG O2 Saturation ABG Base Excess ABG Hemoglobin Oxyhemoglobin Sodium Potassium Chloride Carbon Dioxide 20 L BUN 59 H Creatinine Glucose 140 H POC Glucose 139 H 117 H Lactic Acid Calcium Magnesium Iron TIBC Ferritin AST ALT Lactate Dehydrogenase Troponin T C-Reactive Protein Total Protein Albumin Prealbumin Cholesterol LDL Cholesterol Direct HDL Cholesterol Urine WBC (Auto) Vancomycin Trough Coronavirus (PCR) Crossmatch 07/15/19 07/16/19 07/16/19 18:13 00:06 03:43 WBC RBC Hgb Hct MCV MCH MCHC RDW Plt Count Lymph % (Auto) [place] % (Auto) Lymph # [place] # Baso # Seg Neutrophils % Seg Neuts % (Manual) Lymphocytes % (Manual) Monocytes % (Manual) Basophils % (Manual) Nucleated RBC % Seg Neutrophils # Seg Neutrophils # Man Lymphocytes # (Manual) Monocytes # (Manual) Eosinophils # (Manual) Basophils # (Manual) PT INR D-Dimer ABG pH 7.344 L ABG pO2 68.6 L ABG HCO3 ABG O2 Saturation ABG Base Excess -3.5 L ABG Hemoglobin 6.1 L Oxyhemoglobin 93.3 L Sodium Potassium Chloride Carbon Dioxide BUN Creatinine Glucose POC Glucose 114 H 119 H Lactic Acid Calcium Magnesium Iron TIBC Ferritin AST ALT Lactate Dehydrogenase Troponin T C-Reactive Protein Total Protein Albumin Prealbumin Cholesterol LDL Cholesterol Direct HDL Cholesterol Urine WBC (Auto) Vancomycin Trough Coronavirus (PCR) Crossmatch 07/16/19 07/16/19 07/16/19 04:41 04:41 12:09 WBC 19.6 H RBC 2.81 L Hgb 7.7 L Hct 24.0 L MCV MCH 27 L MCHC RDW 19.4 H Plt Count 514 H Lymph % (Auto) 6.7 L [place] % (Auto) Lymph # [place] # 1.0 H Baso # Seg Neutrophils % 87.0 H Seg Neuts % (Manual) Lymphocytes % (Manual) Monocytes % (Manual) Basophils % (Manual) Nucleated RBC % Seg Neutrophils # 17.0 H Seg Neutrophils # Man Lymphocytes # (Manual) Monocytes # (Manual) Eosinophils # (Manual) Basophils # (Manual) PT INR D-Dimer ABG pH ABG pO2 ABG HCO3 ABG O2 Saturation ABG Base Excess ABG Hemoglobin Oxyhemoglobin Sodium Potassium 5.9 H Chloride Carbon Dioxide 21 L BUN 73 H Creatinine 2.0 H Glucose POC Glucose 141 H Lactic Acid Calcium Magnesium Iron TIBC Ferritin AST ALT Lactate Dehydrogenase Troponin T C-Reactive Protein Total Protein Albumin Prealbumin Cholesterol LDL Cholesterol Direct HDL Cholesterol Urine WBC (Auto) Vancomycin Trough Coronavirus (PCR) Crossmatch 07/16/19 07/16/19 07/17/19 16:19 17:45 00:16 WBC RBC Hgb Hct MCV MCH MCHC RDW Plt Count Lymph % (Auto) [place] % (Auto) Lymph # [place] # Baso # Seg Neutrophils % Seg Neuts % (Manual) Lymphocytes % (Manual) Monocytes % (Manual) Basophils % (Manual) Nucleated RBC % Seg Neutrophils # Seg Neutrophils # Man Lymphocytes # (Manual) Monocytes # (Manual) Eosinophils # (Manual) Basophils # (Manual) PT INR D-Dimer ABG pH ABG pO2 ABG HCO3 ABG O2 Saturation ABG Base Excess ABG Hemoglobin Oxyhemoglobin Sodium Potassium 5.1 H Chloride Carbon Dioxide 20 L BUN 72 H Creatinine 1.7 H Glucose 128 H POC Glucose 181 H 164 H Lactic Acid Calcium Magnesium Iron TIBC Ferritin AST ALT Lactate Dehydrogenase Troponin T C-Reactive Protein Total Protein Albumin Prealbumin Cholesterol LDL Cholesterol Direct HDL Cholesterol Urine WBC (Auto) Vancomycin Trough Coronavirus (PCR) Crossmatch 07/17/19 07/17/19 07/17/19 04:20 04:39 04:39 WBC 16.1 H RBC 2.92 L Hgb 8.0 L Hct 25.5 L MCV MCH MCHC 31 L RDW 19.7 H Plt Count 564 H Lymph % (Auto) 3.6 L [place] % (Auto) 7.4 H Lymph # 0.6 L [place] # 1.2 H Baso # Seg Neutrophils % 87.5 H Seg Neuts % (Manual) Lymphocytes % (Manual) Monocytes % (Manual) Basophils % (Manual) Nucleated RBC % Seg Neutrophils # 14.1 H Seg Neutrophils # Man Lymphocytes # (Manual) Monocytes # (Manual) Eosinophils # (Manual) Basophils # (Manual) PT INR D-Dimer ABG pH 7.231 L ABG pO2 95.3 H ABG HCO3 ABG O2 Saturation ABG Base Excess -5.0 L ABG Hemoglobin 7.9 L Oxyhemoglobin 94.8 L Sodium Potassium Chloride 107.8 H Carbon Dioxide 21 L BUN 68 H Creatinine Glucose POC Glucose Lactic Acid Calcium Magnesium Iron TIBC Ferritin AST ALT Lactate Dehydrogenase Troponin T C-Reactive Protein Total Protein Albumin Prealbumin Cholesterol LDL Cholesterol Direct HDL Cholesterol Urine WBC (Auto) Vancomycin Trough Coronavirus (PCR) Crossmatch 07/17/19 07/17/19 07/17/19 05:28 12:11 18:48 WBC RBC Hgb Hct MCV MCH MCHC RDW Plt Count Lymph % (Auto) [place] % (Auto) Lymph # [place] # Baso # Seg Neutrophils % Seg Neuts % (Manual) Lymphocytes % (Manual) Monocytes % (Manual) Basophils % (Manual) Nucleated RBC % Seg Neutrophils # Seg Neutrophils # Man Lymphocytes # (Manual) Monocytes # (Manual) Eosinophils # (Manual) Basophils # (Manual) PT INR D-Dimer ABG pH ABG pO2 ABG HCO3 ABG O2 Saturation ABG Base Excess ABG Hemoglobin Oxyhemoglobin Sodium Potassium Chloride Carbon Dioxide BUN Creatinine Glucose POC Glucose 121 H 125 H 174 H Lactic Acid Calcium Magnesium Iron TIBC Ferritin AST ALT Lactate Dehydrogenase Troponin T C-Reactive Protein Total Protein Albumin Prealbumin Cholesterol LDL Cholesterol Direct HDL Cholesterol Urine WBC (Auto) Vancomycin Trough Coronavirus (PCR) Crossmatch 07/17/19 07/17/19 07/18/19 19:55 23:57 02:30 WBC RBC Hgb Hct MCV MCH MCHC RDW Plt Count Lymph % (Auto) [place] % (Auto) Lymph # [place] # Baso # Seg Neutrophils % Seg Neuts % (Manual) Lymphocytes % (Manual) Monocytes % (Manual) Basophils % (Manual) Nucleated RBC % Seg Neutrophils # Seg Neutrophils # Man Lymphocytes # (Manual) Monocytes # (Manual) Eosinophils # (Manual) Basophils # (Manual) PT INR D-Dimer ABG pH 7.344 L 7.294 L ABG pO2 78.5 L 119.2 H ABG HCO3 ABG O2 Saturation ABG Base Excess -3.3 L -2.6 L ABG Hemoglobin 8.6 L 8.1 L Oxyhemoglobin 94.8 L Sodium Potassium Chloride Carbon Dioxide BUN Creatinine Glucose POC Glucose 148 H Lactic Acid Calcium Magnesium Iron TIBC Ferritin AST ALT Lactate Dehydrogenase Troponin T C-Reactive Protein Total Protein Albumin Prealbumin Cholesterol LDL Cholesterol Direct HDL Cholesterol Urine WBC (Auto) Vancomycin Trough Coronavirus (PCR) Crossmatch 07/18/19 07/18/19 07/18/19 04:49 05:22 05:22 WBC 15.9 H RBC 3.00 L Hgb 8.1 L Hct 26.0 L MCV MCH 27 L MCHC 31 L RDW 19.4 H Plt Count 733 H Lymph % (Auto) 6.3 L [place] % (Auto) 7.4 H Lymph # 1.0 L [place] # 1.2 H Baso # 0.2 H Seg Neutrophils % 83.8 H Seg Neuts % (Manual) Lymphocytes % (Manual) Monocytes % (Manual) Basophils % (Manual) Nucleated RBC % Seg Neutrophils # 13.3 H Seg Neutrophils # Man Lymphocytes # (Manual) Monocytes # (Manual) Eosinophils # (Manual) Basophils # (Manual) PT INR D-Dimer ABG pH ABG pO2 ABG HCO3 ABG O2 Saturation ABG Base Excess ABG Hemoglobin Oxyhemoglobin Sodium Potassium Chloride 110.6 H Carbon Dioxide BUN 61 H Creatinine Glucose 109 H POC Glucose 116 H Lactic Acid Calcium Magnesium Iron TIBC Ferritin AST ALT Lactate Dehydrogenase Troponin T C-Reactive Protein Total Protein Albumin Prealbumin Cholesterol LDL Cholesterol Direct HDL Cholesterol Urine WBC (Auto) Vancomycin Trough Coronavirus (PCR) Crossmatch 07/18/19 07/18/19 07/18/19 12:23 18:06 22:20 WBC RBC Hgb Hct MCV MCH MCHC RDW Plt Count Lymph % (Auto) [place] % (Auto) Lymph # [place] # Baso # Seg Neutrophils % Seg Neuts % (Manual) Lymphocytes % (Manual) Monocytes % (Manual) Basophils % (Manual) Nucleated RBC % Seg Neutrophils # Seg Neutrophils # Man Lymphocytes # (Manual) Monocytes # (Manual) Eosinophils # (Manual) Basophils # (Manual) PT INR D-Dimer ABG pH 7.338 L ABG pO2 135.1 H ABG HCO3 ABG O2 Saturation ABG Base Excess ABG Hemoglobin 9.2 L Oxyhemoglobin Sodium Potassium Chloride Carbon Dioxide BUN Creatinine Glucose POC Glucose 114 H 113 H Lactic Acid Calcium Magnesium Iron TIBC Ferritin AST ALT Lactate Dehydrogenase Troponin T C-Reactive Protein Total Protein Albumin Prealbumin Cholesterol LDL Cholesterol Direct HDL Cholesterol Urine WBC (Auto) Vancomycin Trough Coronavirus (PCR) Crossmatch 07/18/19 07/19/19 07/19/19 23:33 03:45 05:18 WBC RBC Hgb Hct MCV MCH MCHC RDW Plt Count Lymph % (Auto) [place] % (Auto) Lymph # [place] # Baso # Seg Neutrophils % Seg Neuts % (Manual) Lymphocytes % (Manual) Monocytes % (Manual) Basophils % (Manual) Nucleated RBC % Seg Neutrophils # Seg Neutrophils # Man Lymphocytes # (Manual) Monocytes # (Manual) Eosinophils # (Manual) Basophils # (Manual) PT INR D-Dimer ABG pH 7.342 L ABG pO2 95.0 H ABG HCO3 ABG O2 Saturation ABG Base Excess ABG Hemoglobin 8.5 L Oxyhemoglobin Sodium Potassium Chloride Carbon Dioxide BUN Creatinine Glucose POC Glucose 125 H 111 H Lactic Acid Calcium Magnesium Iron TIBC Ferritin AST ALT Lactate Dehydrogenase Troponin T C-Reactive Protein Total Protein Albumin Prealbumin Cholesterol LDL Cholesterol Direct HDL Cholesterol Urine WBC (Auto) Vancomycin Trough Coronavirus (PCR) Crossmatch 07/19/19 07/19/19 07/19/19 08:45 08:45 11:47 WBC 15.9 H RBC 3.31 L Hgb 9.1 L Hct 28.4 L MCV MCH 27 L MCHC RDW 19.1 H Plt Count 858 H Lymph % (Auto) 4.9 L [place] % (Auto) 8.1 H Lymph # 0.8 L [place] # 1.3 H Baso # Seg Neutrophils % 85.5 H Seg Neuts % (Manual) Lymphocytes % (Manual) Monocytes % (Manual) Basophils % (Manual) Nucleated RBC % Seg Neutrophils # 13.6 H Seg Neutrophils # Man Lymphocytes # (Manual) Monocytes # (Manual) Eosinophils # (Manual) Basophils # (Manual) PT INR D-Dimer ABG pH ABG pO2 ABG HCO3 ABG O2 Saturation ABG Base Excess ABG Hemoglobin Oxyhemoglobin Sodium Potassium Chloride 111.6 H Carbon Dioxide BUN 50 H Creatinine 0.7 L Glucose 118 H POC Glucose 114 H Lactic Acid Calcium Magnesium Iron TIBC Ferritin AST ALT Lactate Dehydrogenase Troponin T C-Reactive Protein Total Protein Albumin Prealbumin Cholesterol LDL Cholesterol Direct HDL Cholesterol Urine WBC (Auto) Vancomycin Trough Coronavirus (PCR) Crossmatch 07/19/19 07/19/19 07/20/19 18:25 23:44 04:39 WBC RBC Hgb Hct MCV MCH MCHC RDW Plt Count Lymph % (Auto) [place] % (Auto) Lymph # [place] # Baso # Seg Neutrophils % Seg Neuts % (Manual) Lymphocytes % (Manual) Monocytes % (Manual) Basophils % (Manual) Nucleated RBC % Seg Neutrophils # Seg Neutrophils # Man Lymphocytes # (Manual) Monocytes # (Manual) Eosinophils # (Manual) Basophils # (Manual) PT INR D-Dimer ABG pH ABG pO2 ABG HCO3 ABG O2 Saturation ABG Base Excess ABG Hemoglobin Oxyhemoglobin Sodium Potassium Chloride 110.3 H Carbon Dioxide BUN 44 H Creatinine 0.6 L Glucose 120 H POC Glucose 115 H 117 H Lactic Acid Calcium Magnesium Iron TIBC Ferritin AST ALT Lactate Dehydrogenase Troponin T C-Reactive Protein Total Protein Albumin Prealbumin Cholesterol LDL Cholesterol Direct HDL Cholesterol Urine WBC (Auto) Vancomycin Trough Coronavirus (PCR) Crossmatch 07/20/19 07/21/19 07/21/19 05:30 11:59 17:40 WBC RBC Hgb Hct MCV MCH MCHC RDW Plt Count Lymph % (Auto) [place] % (Auto) Lymph # [place] # Baso # Seg Neutrophils % Seg Neuts % (Manual) Lymphocytes % (Manual) Monocytes % (Manual) Basophils % (Manual) Nucleated RBC % Seg Neutrophils # Seg Neutrophils # Man Lymphocytes # (Manual) Monocytes # (Manual) Eosinophils # (Manual) Basophils # (Manual) PT INR D-Dimer ABG pH ABG pO2 ABG HCO3 ABG O2 Saturation ABG Base Excess ABG Hemoglobin Oxyhemoglobin Sodium Potassium Chloride Carbon Dioxide BUN Creatinine Glucose POC Glucose 131 H 122 H 125 H Lactic Acid Calcium Magnesium Iron TIBC Ferritin AST ALT Lactate Dehydrogenase Troponin T C-Reactive Protein Total Protein Albumin Prealbumin Cholesterol LDL Cholesterol Direct HDL Cholesterol Urine WBC (Auto) Vancomycin Trough Coronavirus (PCR) Crossmatch 07/22/19 07/22/19 07/22/19 05:38 05:38 12:29 WBC 12.6 H RBC 3.19 L Hgb 8.9 L Hct 27.5 L MCV MCH MCHC RDW 18.9 H Plt Count 1101 H* Lymph % (Auto) [place] % (Auto) 12.2 H Lymph # [place] # 1.5 H Baso # Seg Neutrophils % 72.8 H Seg Neuts % (Manual) 76.0 H Lymphocytes % (Manual) 7.0 L Monocytes % (Manual) 14.0 H Basophils % (Manual) Nucleated RBC % 1.0 H Seg Neutrophils # 9.2 H Seg Neutrophils # Man 9.6 H Lymphocytes # (Manual) 0.9 L Monocytes # (Manual) 1.8 H Eosinophils # (Manual) Basophils # (Manual) PT INR D-Dimer ABG pH ABG pO2 ABG HCO3 ABG O2 Saturation ABG Base Excess ABG Hemoglobin Oxyhemoglobin Sodium Potassium 3.4 L Chloride Carbon Dioxide BUN 29 H Creatinine 0.5 L Glucose POC Glucose 116 H Lactic Acid Calcium Magnesium Iron TIBC Ferritin AST ALT Lactate Dehydrogenase Troponin T C-Reactive Protein Total Protein Albumin Prealbumin Cholesterol LDL Cholesterol Direct HDL Cholesterol Urine WBC (Auto) Vancomycin Trough Coronavirus (PCR) Crossmatch 07/22/19 07/22/19 07/23/19 18:20 23:51 04:52 WBC RBC Hgb Hct MCV MCH MCHC RDW Plt Count Lymph % (Auto) [place] % (Auto) Lymph # [place] # Baso # Seg Neutrophils % Seg Neuts % (Manual) Lymphocytes % (Manual) Monocytes % (Manual) Basophils % (Manual) Nucleated RBC % Seg Neutrophils # Seg Neutrophils # Man Lymphocytes # (Manual) Monocytes # (Manual) Eosinophils # (Manual) Basophils # (Manual) PT INR D-Dimer ABG pH ABG pO2 ABG HCO3 ABG O2 Saturation ABG Base Excess ABG Hemoglobin Oxyhemoglobin Sodium Potassium Chloride Carbon Dioxide BUN 24 H Creatinine 0.4 L Glucose POC Glucose 107 H 110 H Lactic Acid Calcium Magnesium Iron TIBC Ferritin AST ALT Lactate Dehydrogenase Troponin T C-Reactive Protein Total Protein Albumin Prealbumin Cholesterol LDL Cholesterol Direct HDL Cholesterol Urine WBC (Auto) Vancomycin Trough Coronavirus (PCR) Crossmatch 07/23/19 07/23/19 07/24/19 06:00 23:15 04:40 WBC RBC Hgb Hct MCV MCH MCHC RDW Plt Count Lymph % (Auto) [place] % (Auto) Lymph # [place] # Baso # Seg Neutrophils % Seg Neuts % (Manual) Lymphocytes % (Manual) Monocytes % (Manual) Basophils % (Manual) Nucleated RBC % Seg Neutrophils # Seg Neutrophils # Man Lymphocytes # (Manual) Monocytes # (Manual) Eosinophils # (Manual) Basophils # (Manual) PT INR D-Dimer ABG pH ABG pO2 73.5 L ABG HCO3 27.0 H 28.5 H ABG O2 Saturation 94.5 L ABG Base Excess ABG Hemoglobin 9.4 L 8.9 L Oxyhemoglobin 94.0 L 92.7 L Sodium Potassium Chloride Carbon Dioxide BUN Creatinine Glucose POC Glucose 117 H Lactic Acid Calcium Magnesium Iron TIBC Ferritin AST ALT Lactate Dehydrogenase Troponin T C-Reactive Protein Total Protein Albumin Prealbumin Cholesterol LDL Cholesterol Direct HDL Cholesterol Urine WBC (Auto) Vancomycin Trough Coronavirus (PCR) Crossmatch 07/24/19 07/24/19 07/25/19 05:25 12:06 00:16 WBC RBC Hgb Hct MCV MCH MCHC RDW Plt Count Lymph % (Auto) [place] % (Auto) Lymph # [place] # Baso # Seg Neutrophils % Seg Neuts % (Manual) Lymphocytes % (Manual) Monocytes % (Manual) Basophils % (Manual) Nucleated RBC % Seg Neutrophils # Seg Neutrophils # Man Lymphocytes # (Manual) Monocytes # (Manual) Eosinophils # (Manual) Basophils # (Manual) PT INR D-Dimer ABG pH ABG pO2 ABG HCO3 ABG O2 Saturation ABG Base Excess ABG Hemoglobin Oxyhemoglobin Sodium Potassium Chloride Carbon Dioxide BUN Creatinine Glucose POC Glucose 114 H 108 H 106 H Lactic Acid Calcium Magnesium Iron TIBC Ferritin AST ALT Lactate Dehydrogenase Troponin T C-Reactive Protein Total Protein Albumin Prealbumin Cholesterol LDL Cholesterol Direct HDL Cholesterol Urine WBC (Auto) Vancomycin Trough Coronavirus (PCR) Crossmatch 07/25/19 07/25/19 07/25/19 05:14 05:14 05:17 WBC 17.8 H RBC 3.32 L Hgb 9.2 L Hct 28.6 L MCV MCH MCHC RDW 19.9 H Plt Count 994 H Lymph % (Auto) [place] % (Auto) Lymph # [place] # Baso # Seg Neutrophils % Seg Neuts % (Manual) 82.0 H Lymphocytes % (Manual) 5.0 L Monocytes % (Manual) Basophils % (Manual) Nucleated RBC % Seg Neutrophils # Seg Neutrophils # Man 14.6 H Lymphocytes # (Manual) 0.9 L Monocytes # (Manual) 1.2 H Eosinophils # (Manual) Basophils # (Manual) PT INR D-Dimer ABG pH ABG pO2 ABG HCO3 ABG O2 Saturation ABG Base Excess ABG Hemoglobin Oxyhemoglobin Sodium Potassium Chloride Carbon Dioxide BUN Creatinine 0.4 L Glucose 110 H POC Glucose 107 H Lactic Acid Calcium Magnesium Iron TIBC Ferritin AST ALT Lactate Dehydrogenase Troponin T C-Reactive Protein Total Protein Albumin Prealbumin Cholesterol LDL Cholesterol Direct HDL Cholesterol Urine WBC (Auto) Vancomycin Trough Coronavirus (PCR) Crossmatch 07/25/19 07/25/19 07/26/19 11:55 23:49 06:01 WBC RBC Hgb Hct MCV MCH MCHC RDW Plt Count Lymph % (Auto) [place] % (Auto) Lymph # [place] # Baso # Seg Neutrophils % Seg Neuts % (Manual) Lymphocytes % (Manual) Monocytes % (Manual) Basophils % (Manual) Nucleated RBC % Seg Neutrophils # Seg Neutrophils # Man Lymphocytes # (Manual) Monocytes # (Manual) Eosinophils # (Manual) Basophils # (Manual) PT INR D-Dimer ABG pH ABG pO2 ABG HCO3 ABG O2 Saturation ABG Base Excess ABG Hemoglobin Oxyhemoglobin Sodium Potassium Chloride Carbon Dioxide BUN Creatinine Glucose POC Glucose 123 H 118 H 106 H Lactic Acid Calcium Magnesium Iron TIBC Ferritin AST ALT Lactate Dehydrogenase Troponin T C-Reactive Protein Total Protein Albumin Prealbumin Cholesterol LDL Cholesterol Direct HDL Cholesterol Urine WBC (Auto) Vancomycin Trough Coronavirus (PCR) Crossmatch 07/26/19 07/27/19 07/27/19 17:02 00:28 05:16 WBC RBC Hgb Hct MCV MCH MCHC RDW Plt Count Lymph % (Auto) [place] % (Auto) Lymph # [place] # Baso # Seg Neutrophils % Seg Neuts % (Manual) Lymphocytes % (Manual) Monocytes % (Manual) Basophils % (Manual) Nucleated RBC % Seg Neutrophils # Seg Neutrophils # Man Lymphocytes # (Manual) Monocytes # (Manual) Eosinophils # (Manual) Basophils # (Manual) PT INR D-Dimer ABG pH ABG pO2 63.4 L ABG HCO3 31.3 H ABG O2 Saturation 92.7 L ABG Base Excess 6.3 H ABG Hemoglobin 7.6 L Oxyhemoglobin 90.9 L Sodium Potassium Chloride Carbon Dioxide BUN Creatinine Glucose POC Glucose 116 H 158 H Lactic Acid Calcium Magnesium Iron TIBC Ferritin AST ALT Lactate Dehydrogenase Troponin T C-Reactive Protein Total Protein Albumin Prealbumin Cholesterol LDL Cholesterol Direct HDL Cholesterol Urine WBC (Auto) Vancomycin Trough Coronavirus (PCR) Crossmatch 07/28/19 07/28/19 07/28/19 10:13 10:13 23:54 WBC 18.5 H RBC 3.20 L Hgb 8.8 L Hct 26.8 L MCV MCH 27 L MCHC RDW 19.9 H Plt Count 730 H Lymph % (Auto) [place] % (Auto) Lymph # [place] # Baso # Seg Neutrophils % Seg Neuts % (Manual) Lymphocytes % (Manual) Monocytes % (Manual) Basophils % (Manual) Nucleated RBC % Seg Neutrophils # Seg Neutrophils # Man Lymphocytes # (Manual) Monocytes # (Manual) Eosinophils # (Manual) Basophils # (Manual) PT INR D-Dimer ABG pH ABG pO2 ABG HCO3 ABG O2 Saturation ABG Base Excess ABG Hemoglobin Oxyhemoglobin Sodium Potassium 3.2 L Chloride 97.5 L Carbon Dioxide 31 H BUN Creatinine 0.5 L Glucose POC Glucose 120 H Lactic Acid Calcium Magnesium Iron TIBC Ferritin AST ALT Lactate Dehydrogenase Troponin T C-Reactive Protein Total Protein Albumin Prealbumin Cholesterol LDL Cholesterol Direct HDL Cholesterol Urine WBC (Auto) Vancomycin Trough Coronavirus (PCR) Crossmatch 07/29/19 07/29/19 07/29/19 11:57 17:43 Unknown WBC RBC Hgb Hct MCV MCH MCHC RDW Plt Count Lymph % (Auto) [place] % (Auto) Lymph # [place] # Baso # Seg Neutrophils % Seg Neuts % (Manual) Lymphocytes % (Manual) Monocytes % (Manual) Basophils % (Manual) Nucleated RBC % Seg Neutrophils # Seg Neutrophils # Man Lymphocytes # (Manual) Monocytes # (Manual) Eosinophils # (Manual) Basophils # (Manual) PT INR D-Dimer ABG pH ABG pO2 ABG HCO3 ABG O2 Saturation ABG Base Excess ABG Hemoglobin Oxyhemoglobin Sodium Potassium Chloride Carbon Dioxide BUN Creatinine Glucose POC Glucose 112 H Lactic Acid Calcium Magnesium Iron TIBC Ferritin AST ALT Lactate Dehydrogenase Troponin T C-Reactive Protein Total Protein Albumin Prealbumin Cholesterol LDL Cholesterol Direct HDL Cholesterol Urine WBC (Auto) 63.0 H Vancomycin Trough Coronavirus (PCR) Positive A Crossmatch 07/30/19 07/30/19 07/30/19 00:20 04:35 04:35 WBC 24.3 H RBC 3.12 L Hgb 8.5 L Hct 26.3 L MCV MCH 27 L MCHC RDW 20.2 H Plt Count 550 H Lymph % (Auto) [place] % (Auto) Lymph # [place] # Baso # Seg Neutrophils % Seg Neuts % (Manual) Lymphocytes % (Manual) Monocytes % (Manual) Basophils % (Manual) Nucleated RBC % Seg Neutrophils # Seg Neutrophils # Man Lymphocytes # (Manual) Monocytes # (Manual) Eosinophils # (Manual) Basophils # (Manual) PT INR D-Dimer ABG pH ABG pO2 ABG HCO3 ABG O2 Saturation ABG Base Excess ABG Hemoglobin Oxyhemoglobin Sodium Potassium 3.0 L Chloride 96.3 L Carbon Dioxide 32 H BUN Creatinine 0.5 L Glucose POC Glucose 106 H Lactic Acid Calcium Magnesium Iron TIBC Ferritin AST ALT Lactate Dehydrogenase Troponin T C-Reactive Protein Total Protein Albumin Prealbumin Cholesterol LDL Cholesterol Direct HDL Cholesterol Urine WBC (Auto) Vancomycin Trough Coronavirus (PCR) Crossmatch 07/31/19 07/31/19 07/31/19 04:42 04:42 11:33 WBC 23.8 H RBC 3.10 L Hgb 8.4 L Hct 26.1 L MCV MCH 27 L MCHC RDW 19.6 H Plt Count 561 H Lymph % (Auto) [place] % (Auto) Lymph # [place] # Baso # Seg Neutrophils % Seg Neuts % (Manual) Lymphocytes % (Manual) Monocytes % (Manual) Basophils % (Manual) Nucleated RBC % Seg Neutrophils # Seg Neutrophils # Man Lymphocytes # (Manual) Monocytes # (Manual) Eosinophils # (Manual) Basophils # (Manual) PT INR D-Dimer ABG pH ABG pO2 ABG HCO3 ABG O2 Saturation ABG Base Excess ABG Hemoglobin Oxyhemoglobin Sodium 135 L Potassium Chloride 93.9 L Carbon Dioxide 32 H BUN Creatinine 0.4 L Glucose POC Glucose 116 H Lactic Acid Calcium Magnesium Iron TIBC Ferritin AST ALT Lactate Dehydrogenase Troponin T C-Reactive Protein Total Protein Albumin 1.6 L Prealbumin 0.037 L Cholesterol LDL Cholesterol Direct HDL Cholesterol Urine WBC (Auto) Vancomycin Trough Coronavirus (PCR) Crossmatch 07/31/19 08/01/19 08/01/19 23:33 04:57 04:57 WBC 26.7 H RBC 3.12 L Hgb 8.5 L Hct 26.3 L MCV MCH 27 L MCHC RDW 19.2 H Plt Count 602 H Lymph % (Auto) [place] % (Auto) Lymph # [place] # Baso # Seg Neutrophils % Seg Neuts % (Manual) 93.0 H Lymphocytes % (Manual) 2.0 L Monocytes % (Manual) Basophils % (Manual) Nucleated RBC % Seg Neutrophils # Seg Neutrophils # Man 24.8 H Lymphocytes # (Manual) 0.5 L Monocytes # (Manual) 1.1 H Eosinophils # (Manual) Basophils # (Manual) PT INR D-Dimer ABG pH ABG pO2 ABG HCO3 ABG O2 Saturation ABG Base Excess ABG Hemoglobin Oxyhemoglobin Sodium 132 L Potassium Chloride 93.8 L Carbon Dioxide 31 H BUN Creatinine 0.3 L Glucose POC Glucose 148 H Lactic Acid Calcium 8.1 L Magnesium Iron TIBC Ferritin AST ALT Lactate Dehydrogenase Troponin T C-Reactive Protein Total Protein Albumin Prealbumin Cholesterol LDL Cholesterol Direct HDL Cholesterol Urine WBC (Auto) Vancomycin Trough Coronavirus (PCR) Crossmatch 08/01/19 08/02/19 08/02/19 12:16 00:22 05:24 WBC RBC Hgb Hct MCV MCH MCHC RDW Plt Count Lymph % (Auto) [place] % (Auto) Lymph # [place] # Baso # Seg Neutrophils % Seg Neuts % (Manual) Lymphocytes % (Manual) Monocytes % (Manual) Basophils % (Manual) Nucleated RBC % Seg Neutrophils # Seg Neutrophils # Man Lymphocytes # (Manual) Monocytes # (Manual) Eosinophils # (Manual) Basophils # (Manual) PT INR D-Dimer ABG pH ABG pO2 ABG HCO3 ABG O2 Saturation ABG Base Excess ABG Hemoglobin Oxyhemoglobin Sodium Potassium Chloride Carbon Dioxide BUN Creatinine Glucose POC Glucose 120 H 119 H 113 H Lactic Acid Calcium Magnesium Iron TIBC Ferritin AST ALT Lactate Dehydrogenase Troponin T C-Reactive Protein Total Protein Albumin Prealbumin Cholesterol LDL Cholesterol Direct HDL Cholesterol Urine WBC (Auto) Vancomycin Trough Coronavirus (PCR) Crossmatch 08/03/19 08/03/19 08/03/19 05:20 12:01 23:48 WBC RBC Hgb Hct MCV MCH MCHC RDW Plt Count Lymph % (Auto) [place] % (Auto) Lymph # [place] # Baso # Seg Neutrophils % Seg Neuts % (Manual) Lymphocytes % (Manual) Monocytes % (Manual) Basophils % (Manual) Nucleated RBC % Seg Neutrophils # Seg Neutrophils # Man Lymphocytes # (Manual) Monocytes # (Manual) Eosinophils # (Manual) Basophils # (Manual) PT INR D-Dimer ABG pH ABG pO2 ABG HCO3 ABG O2 Saturation ABG Base Excess ABG Hemoglobin Oxyhemoglobin Sodium Potassium Chloride Carbon Dioxide BUN Creatinine Glucose POC Glucose 118 H 106 H 120 H Lactic Acid Calcium Magnesium Iron TIBC Ferritin AST ALT Lactate Dehydrogenase Troponin T C-Reactive Protein Total Protein Albumin Prealbumin Cholesterol LDL Cholesterol Direct HDL Cholesterol Urine WBC (Auto) Vancomycin Trough Coronavirus (PCR) Crossmatch 08/04/19 08/04/19 08/04/19 05:38 05:38 06:29 WBC 26.1 H RBC 2.77 L Hgb 7.5 L Hct 23.2 L MCV MCH 27 L MCHC RDW 19.2 H Plt Count 648 H Lymph % (Auto) [place] % (Auto) Lymph # [place] # Baso # Seg Neutrophils % Seg Neuts % (Manual) 90.5 H Lymphocytes % (Manual) 3.5 L Monocytes % (Manual) Basophils % (Manual) Nucleated RBC % Seg Neutrophils # Seg Neutrophils # Man 23.6 H Lymphocytes # (Manual) 0.9 L Monocytes # (Manual) 1.2 H Eosinophils # (Manual) Basophils # (Manual) PT INR D-Dimer ABG pH ABG pO2 ABG HCO3 ABG O2 Saturation ABG Base Excess ABG Hemoglobin Oxyhemoglobin Sodium 132 L Potassium 3.4 L D Chloride 92.7 L Carbon Dioxide 33 H BUN Creatinine 0.2 L Glucose POC Glucose 108 H Lactic Acid Calcium 8.1 L Magnesium Iron TIBC Ferritin AST ALT Lactate Dehydrogenase Troponin T C-Reactive Protein Total Protein Albumin Prealbumin Cholesterol LDL Cholesterol Direct HDL Cholesterol Urine WBC (Auto) Vancomycin Trough Coronavirus (PCR) Crossmatch 08/04/19 08/05/19 08/05/19 12:30 04:58 04:58 WBC 21.0 H RBC 2.63 L Hgb 7.2 L Hct 21.9 L MCV 83 L MCH 27 L MCHC RDW 18.9 H Plt Count 691 H Lymph % (Auto) [place] % (Auto) Lymph # [place] # Baso # Seg Neutrophils % Seg Neuts % (Manual) 86.0 H Lymphocytes % (Manual) 3.0 L Monocytes % (Manual) 10.0 H Basophils % (Manual) Nucleated RBC % Seg Neutrophils # Seg Neutrophils # Man 18.1 H Lymphocytes # (Manual) 0.6 L Monocytes # (Manual) 2.1 H Eosinophils # (Manual) Basophils # (Manual) PT INR D-Dimer ABG pH ABG pO2 ABG HCO3 ABG O2 Saturation ABG Base Excess ABG Hemoglobin Oxyhemoglobin Sodium 134 L Potassium 3.2 L Chloride 93.2 L Carbon Dioxide 34 H BUN 8 L Creatinine 0.3 L Glucose POC Glucose 138 H Lactic Acid Calcium 8.1 L Magnesium Iron TIBC Ferritin AST ALT Lactate Dehydrogenase Troponin T C-Reactive Protein Total Protein Albumin Prealbumin Cholesterol LDL Cholesterol Direct HDL Cholesterol Urine WBC (Auto) Vancomycin Trough Coronavirus (PCR) Crossmatch 08/05/19 08/05/19 08/05/19 11:53 17:57 23:58 WBC RBC Hgb Hct MCV MCH MCHC RDW Plt Count Lymph % (Auto) [place] % (Auto) Lymph # [place] # Baso # Seg Neutrophils % Seg Neuts % (Manual) Lymphocytes % (Manual) Monocytes % (Manual) Basophils % (Manual) Nucleated RBC % Seg Neutrophils # Seg Neutrophils # Man Lymphocytes # (Manual) Monocytes # (Manual) Eosinophils # (Manual) Basophils # (Manual) PT INR D-Dimer ABG pH ABG pO2 ABG HCO3 ABG O2 Saturation ABG Base Excess ABG Hemoglobin Oxyhemoglobin Sodium Potassium Chloride Carbon Dioxide BUN Creatinine Glucose POC Glucose 106 H 111 H 116 H Lactic Acid Calcium Magnesium Iron TIBC Ferritin AST ALT Lactate Dehydrogenase Troponin T C-Reactive Protein Total Protein Albumin Prealbumin Cholesterol LDL Cholesterol Direct HDL Cholesterol Urine WBC (Auto) Vancomycin Trough Coronavirus (PCR) Crossmatch 08/06/19 08/06/19 08/06/19 04:11 04:11 06:04 WBC 20.8 H RBC 2.80 L Hgb 7.6 L Hct 23.5 L MCV MCH 27 L MCHC RDW 19.0 H Plt Count 723 H Lymph % (Auto) [place] % (Auto) Lymph # [place] # Baso # Seg Neutrophils % Seg Neuts % (Manual) 88.0 H Lymphocytes % (Manual) 3.0 L Monocytes % (Manual) Basophils % (Manual) Nucleated RBC % Seg Neutrophils # Seg Neutrophils # Man 18.3 H Lymphocytes # (Manual) 0.6 L Monocytes # (Manual) Eosinophils # (Manual) Basophils # (Manual) 0.2 H PT INR D-Dimer ABG pH ABG pO2 ABG HCO3 ABG O2 Saturation ABG Base Excess ABG Hemoglobin Oxyhemoglobin Sodium Potassium 3.4 L Chloride 95.2 L Carbon Dioxide 32 H BUN Creatinine 0.3 L Glucose POC Glucose 108 H Lactic Acid Calcium 8.2 L Magnesium Iron TIBC Ferritin AST ALT Lactate Dehydrogenase Troponin T C-Reactive Protein Total Protein Albumin Prealbumin Cholesterol LDL Cholesterol Direct HDL Cholesterol Urine WBC (Auto) Vancomycin Trough Coronavirus (PCR) Crossmatch 08/06/19 08/06/19 08/07/19 12:23 17:13 00:21 WBC RBC Hgb Hct MCV MCH MCHC RDW Plt Count Lymph % (Auto) [place] % (Auto) Lymph # [place] # Baso # Seg Neutrophils % Seg Neuts % (Manual) Lymphocytes % (Manual) Monocytes % (Manual) Basophils % (Manual) Nucleated RBC % Seg Neutrophils # Seg Neutrophils # Man Lymphocytes # (Manual) Monocytes # (Manual) Eosinophils # (Manual) Basophils # (Manual) PT INR D-Dimer ABG pH ABG pO2 ABG HCO3 ABG O2 Saturation ABG Base Excess ABG Hemoglobin Oxyhemoglobin Sodium Potassium Chloride Carbon Dioxide BUN Creatinine Glucose POC Glucose 112 H 132 H 147 H Lactic Acid Calcium Magnesium Iron TIBC Ferritin AST ALT Lactate Dehydrogenase Troponin T C-Reactive Protein Total Protein Albumin Prealbumin Cholesterol LDL Cholesterol Direct HDL Cholesterol Urine WBC (Auto) Vancomycin Trough Coronavirus (PCR) Crossmatch 08/07/19 08/07/19 08/07/19 05:16 05:23 05:23 WBC 30.3 H RBC 2.69 L Hgb 7.1 L Hct 22.2 L MCV 83 L MCH 27 L MCHC RDW 19.1 H Plt Count 650 H Lymph % (Auto) [place] % (Auto) Lymph # [place] # Baso # Seg Neutrophils % Seg Neuts % (Manual) 88.0 H Lymphocytes % (Manual) 5.0 L Monocytes % (Manual) Basophils % (Manual) Nucleated RBC % Seg Neutrophils # Seg Neutrophils # Man 26.7 H Lymphocytes # (Manual) Monocytes # (Manual) 2.1 H Eosinophils # (Manual) Basophils # (Manual) PT INR D-Dimer ABG pH ABG pO2 ABG HCO3 ABG O2 Saturation ABG Base Excess ABG Hemoglobin Oxyhemoglobin Sodium 135 L Potassium 3.4 L Chloride 95.4 L Carbon Dioxide 32 H BUN Creatinine 0.4 L Glucose 120 H POC Glucose 120 H Lactic Acid Calcium 7.7 L Magnesium Iron TIBC Ferritin AST ALT Lactate Dehydrogenase Troponin T C-Reactive Protein Total Protein Albumin Prealbumin Cholesterol LDL Cholesterol Direct HDL Cholesterol Urine WBC (Auto) Vancomycin Trough Coronavirus (PCR) Crossmatch 08/07/19 08/07/19 08/07/19 10:24 10:24 11:10 WBC RBC Hgb Hct MCV MCH MCHC RDW Plt Count Lymph % (Auto) [place] % (Auto) Lymph # [place] # Baso # Seg Neutrophils % Seg Neuts % (Manual) Lymphocytes % (Manual) Monocytes % (Manual) Basophils % (Manual) Nucleated RBC % Seg Neutrophils # Seg Neutrophils # Man Lymphocytes # (Manual) Monocytes # (Manual) Eosinophils # (Manual) Basophils # (Manual) PT INR D-Dimer 1808.06 H ABG pH ABG pO2 73.3 L ABG HCO3 33.9 H ABG O2 Saturation ABG Base Excess 9.0 H ABG Hemoglobin 6.3 L Oxyhemoglobin 94.3 L Sodium Potassium Chloride Carbon Dioxide BUN Creatinine Glucose POC Glucose Lactic Acid Calcium Magnesium Iron TIBC Ferritin AST ALT Lactate Dehydrogenase Troponin T C-Reactive Protein 11.10 H Total Protein Albumin Prealbumin Cholesterol LDL Cholesterol Direct HDL Cholesterol Urine WBC (Auto) Vancomycin Trough Coronavirus (PCR) Crossmatch 08/07/19 08/08/19 08/08/19 12:01 04:41 04:41 WBC 22.1 H RBC 2.82 L Hgb 7.7 L Hct 23.6 L MCV MCH 27 L MCHC RDW 19.1 H Plt Count 722 H Lymph % (Auto) [place] % (Auto) Lymph # [place] # Baso # Seg Neutrophils % Seg Neuts % (Manual) 90.0 H Lymphocytes % (Manual) 3.0 L Monocytes % (Manual) Basophils % (Manual) Nucleated RBC % Seg Neutrophils # Seg Neutrophils # Man 19.9 H Lymphocytes # (Manual) 0.7 L Monocytes # (Manual) 1.3 H Eosinophils # (Manual) Basophils # (Manual) PT INR D-Dimer ABG pH ABG pO2 ABG HCO3 ABG O2 Saturation ABG Base Excess ABG Hemoglobin Oxyhemoglobin Sodium 136 L Potassium Chloride 97.8 L Carbon Dioxide BUN Creatinine 0.3 L Glucose 105 H POC Glucose 130 H Lactic Acid Calcium 7.8 L Magnesium Iron TIBC Ferritin AST ALT Lactate Dehydrogenase Troponin T C-Reactive Protein Total Protein Albumin Prealbumin Cholesterol LDL Cholesterol Direct HDL Cholesterol Urine WBC (Auto) Vancomycin Trough Coronavirus (PCR) Crossmatch 08/08/19 08/08/19 08/09/19 11:46 18:35 00:12 WBC RBC Hgb Hct MCV MCH MCHC RDW Plt Count Lymph % (Auto) [place] % (Auto) Lymph # [place] # Baso # Seg Neutrophils % Seg Neuts % (Manual) Lymphocytes % (Manual) Monocytes % (Manual) Basophils % (Manual) Nucleated RBC % Seg Neutrophils # Seg Neutrophils # Man Lymphocytes # (Manual) Monocytes # (Manual) Eosinophils # (Manual) Basophils # (Manual) PT INR D-Dimer ABG pH ABG pO2 ABG HCO3 ABG O2 Saturation ABG Base Excess ABG Hemoglobin Oxyhemoglobin Sodium Potassium Chloride Carbon Dioxide BUN Creatinine Glucose POC Glucose 117 H 117 H 117 H Lactic Acid Calcium Magnesium Iron TIBC Ferritin AST ALT Lactate Dehydrogenase Troponin T C-Reactive Protein Total Protein Albumin Prealbumin Cholesterol LDL Cholesterol Direct HDL Cholesterol Urine WBC (Auto) Vancomycin Trough Coronavirus (PCR) Crossmatch 08/09/19 08/09/19 08/09/19 05:33 12:22 17:48 WBC RBC Hgb Hct MCV MCH MCHC RDW Plt Count Lymph % (Auto) [place] % (Auto) Lymph # [place] # Baso # Seg Neutrophils % Seg Neuts % (Manual) Lymphocytes % (Manual) Monocytes % (Manual) Basophils % (Manual) Nucleated RBC % Seg Neutrophils # Seg Neutrophils # Man Lymphocytes # (Manual) Monocytes # (Manual) Eosinophils # (Manual) Basophils # (Manual) PT INR D-Dimer ABG pH ABG pO2 ABG HCO3 ABG O2 Saturation ABG Base Excess ABG Hemoglobin Oxyhemoglobin Sodium Potassium Chloride Carbon Dioxide BUN Creatinine Glucose POC Glucose 119 H 133 H 123 H Lactic Acid Calcium Magnesium Iron TIBC Ferritin AST ALT Lactate Dehydrogenase Troponin T C-Reactive Protein Total Protein Albumin Prealbumin Cholesterol LDL Cholesterol Direct HDL Cholesterol Urine WBC (Auto) Vancomycin Trough Coronavirus (PCR) Crossmatch 08/09/19 08/09/19 08/10/19 17:59 18:15 00:02 WBC RBC Hgb 6.7 L Hct 20.4 L MCV MCH MCHC RDW Plt Count Lymph % (Auto) [place] % (Auto) Lymph # [place] # Baso # Seg Neutrophils % Seg Neuts % (Manual) Lymphocytes % (Manual) Monocytes % (Manual) Basophils % (Manual) Nucleated RBC % Seg Neutrophils # Seg Neutrophils # Man Lymphocytes # (Manual) Monocytes # (Manual) Eosinophils # (Manual) Basophils # (Manual) PT INR D-Dimer ABG pH ABG pO2 ABG HCO3 ABG O2 Saturation ABG Base Excess ABG Hemoglobin Oxyhemoglobin Sodium Potassium Chloride Carbon Dioxide BUN Creatinine Glucose POC Glucose 124 H Lactic Acid Calcium Magnesium Iron TIBC Ferritin AST ALT Lactate Dehydrogenase Troponin T C-Reactive Protein Total Protein Albumin Prealbumin Cholesterol LDL Cholesterol Direct HDL Cholesterol Urine WBC (Auto) Vancomycin Trough Coronavirus (PCR) Crossmatch See Detail 08/10/19 08/10/19 08/10/19 05:47 08:00 08:00 WBC 16.9 H RBC 2.94 L Hgb 8.2 L Hct 24.9 L MCV MCH MCHC RDW 17.0 H Plt Count 661 H Lymph % (Auto) [place] % (Auto) Lymph # [place] # Baso # Seg Neutrophils % Seg Neuts % (Manual) Lymphocytes % (Manual) Monocytes % (Manual) Basophils % (Manual) Nucleated RBC % Seg Neutrophils # Seg Neutrophils # Man Lymphocytes # (Manual) Monocytes # (Manual) Eosinophils # (Manual) Basophils # (Manual) PT INR D-Dimer ABG pH ABG pO2 ABG HCO3 ABG O2 Saturation ABG Base Excess ABG Hemoglobin Oxyhemoglobin Sodium Potassium Chloride Carbon Dioxide BUN Creatinine 0.3 L Glucose 116 H POC Glucose 148 H Lactic Acid Calcium 7.7 L Magnesium Iron TIBC Ferritin AST ALT Lactate Dehydrogenase Troponin T C-Reactive Protein Total Protein Albumin Prealbumin Cholesterol LDL Cholesterol Direct HDL Cholesterol Urine WBC (Auto) Vancomycin Trough Coronavirus (PCR) Crossmatch 08/10/19 08/10/19 08/10/19 12:38 18:06 23:56 WBC RBC Hgb Hct MCV MCH MCHC RDW Plt Count Lymph % (Auto) [place] % (Auto) Lymph # [place] # Baso # Seg Neutrophils % Seg Neuts % (Manual) Lymphocytes % (Manual) Monocytes % (Manual) Basophils % (Manual) Nucleated RBC % Seg Neutrophils # Seg Neutrophils # Man Lymphocytes # (Manual) Monocytes # (Manual) Eosinophils # (Manual) Basophils # (Manual) PT INR D-Dimer ABG pH ABG pO2 ABG HCO3 ABG O2 Saturation ABG Base Excess ABG Hemoglobin Oxyhemoglobin Sodium Potassium Chloride Carbon Dioxide BUN Creatinine Glucose POC Glucose 113 H 126 H 115 H Lactic Acid Calcium Magnesium Iron TIBC Ferritin AST ALT Lactate Dehydrogenase Troponin T C-Reactive Protein Total Protein Albumin Prealbumin Cholesterol LDL Cholesterol Direct HDL Cholesterol Urine WBC (Auto) Vancomycin Trough Coronavirus (PCR) Crossmatch 08/10/19 08/11/19 08/12/19 Unknown 18:10 03:30 WBC 14.4 H RBC 2.58 L Hgb 7.4 L Hct 22.1 L MCV MCH MCHC RDW 17.4 H Plt Count 786 H Lymph % (Auto) [place] % (Auto) Lymph # [place] # Baso # Seg Neutrophils % Seg Neuts % (Manual) Lymphocytes % (Manual) Monocytes % (Manual) Basophils % (Manual) Nucleated RBC % Seg Neutrophils # Seg Neutrophils # Man Lymphocytes # (Manual) Monocytes # (Manual) Eosinophils # (Manual) Basophils # (Manual) PT INR D-Dimer ABG pH ABG pO2 ABG HCO3 ABG O2 Saturation ABG Base Excess ABG Hemoglobin Oxyhemoglobin Sodium Potassium Chloride Carbon Dioxide BUN Creatinine Glucose POC Glucose 106 H Lactic Acid Calcium Magnesium Iron TIBC Ferritin AST ALT Lactate Dehydrogenase Troponin T C-Reactive Protein Total Protein Albumin Prealbumin Cholesterol LDL Cholesterol Direct HDL Cholesterol Urine WBC (Auto) Vancomycin Trough Coronavirus (PCR) Positive A Crossmatch 08/12/19 08/12/19 08/13/19 03:30 12:08 05:25 WBC RBC Hgb Hct MCV MCH MCHC RDW Plt Count Lymph % (Auto) [place] % (Auto) Lymph # [place] # Baso # Seg Neutrophils % Seg Neuts % (Manual) Lymphocytes % (Manual) Monocytes % (Manual) Basophils % (Manual) Nucleated RBC % Seg Neutrophils # Seg Neutrophils # Man Lymphocytes # (Manual) Monocytes # (Manual) Eosinophils # (Manual) Basophils # (Manual) PT INR D-Dimer ABG pH ABG pO2 ABG HCO3 ABG O2 Saturation ABG Base Excess ABG Hemoglobin Oxyhemoglobin Sodium Potassium Chloride Carbon Dioxide BUN 7 L Creatinine 0.3 L Glucose 117 H POC Glucose 112 H 126 H Lactic Acid Calcium 7.8 L Magnesium Iron TIBC Ferritin AST ALT Lactate Dehydrogenase Troponin T C-Reactive Protein Total Protein Albumin Prealbumin Cholesterol LDL Cholesterol Direct HDL Cholesterol Urine WBC (Auto) Vancomycin Trough Coronavirus (PCR) Crossmatch 08/13/19 08/13/19 08/13/19 11:36 17:10 19:06 WBC RBC Hgb Hct MCV MCH MCHC RDW Plt Count Lymph % (Auto) [place] % (Auto) Lymph # [place] # Baso # Seg Neutrophils % Seg Neuts % (Manual) Lymphocytes % (Manual) Monocytes % (Manual) Basophils % (Manual) Nucleated RBC % Seg Neutrophils # Seg Neutrophils # Man Lymphocytes # (Manual) Monocytes # (Manual) Eosinophils # (Manual) Basophils # (Manual) PT INR D-Dimer ABG pH ABG pO2 105.0 H ABG HCO3 28.5 H ABG O2 Saturation ABG Base Excess 3.5 H ABG Hemoglobin 7.8 L Oxyhemoglobin Sodium Potassium Chloride Carbon Dioxide BUN Creatinine Glucose POC Glucose 143 H 107 H Lactic Acid Calcium Magnesium Iron TIBC Ferritin AST ALT Lactate Dehydrogenase Troponin T C-Reactive Protein Total Protein Albumin Prealbumin Cholesterol LDL Cholesterol Direct HDL Cholesterol Urine WBC (Auto) Vancomycin Trough Coronavirus (PCR) Crossmatch 08/13/19 08/14/19 08/14/19 23:23 05:00 05:00 WBC 14.3 H RBC 2.76 L Hgb 7.8 L Hct 23.9 L MCV MCH MCHC RDW 18.7 H Plt Count 896 H Lymph % (Auto) [place] % (Auto) Lymph # [place] # Baso # Seg Neutrophils % Seg Neuts % (Manual) Lymphocytes % (Manual) Monocytes % (Manual) Basophils % (Manual) Nucleated RBC % Seg Neutrophils # Seg Neutrophils # Man Lymphocytes # (Manual) Monocytes # (Manual) Eosinophils # (Manual) Basophils # (Manual) PT INR D-Dimer ABG pH ABG pO2 ABG HCO3 ABG O2 Saturation ABG Base Excess ABG Hemoglobin Oxyhemoglobin Sodium Potassium Chloride Carbon Dioxide BUN 6 L Creatinine 0.3 L Glucose POC Glucose 125 H Lactic Acid Calcium 8.2 L Magnesium Iron TIBC Ferritin AST ALT Lactate Dehydrogenase Troponin T C-Reactive Protein Total Protein Albumin Prealbumin Cholesterol LDL Cholesterol Direct HDL Cholesterol Urine WBC (Auto) Vancomycin Trough Coronavirus (PCR) Crossmatch 08/14/19 08/15/19 08/15/19 05:07 00:25 05:42 WBC RBC Hgb Hct MCV MCH MCHC RDW Plt Count Lymph % (Auto) [place] % (Auto) Lymph # [place] # Baso # Seg Neutrophils % Seg Neuts % (Manual) Lymphocytes % (Manual) Monocytes % (Manual) Basophils % (Manual) Nucleated RBC % Seg Neutrophils # Seg Neutrophils # Man Lymphocytes # (Manual) Monocytes # (Manual) Eosinophils # (Manual) Basophils # (Manual) PT INR D-Dimer ABG pH ABG pO2 ABG HCO3 ABG O2 Saturation ABG Base Excess ABG Hemoglobin Oxyhemoglobin Sodium Potassium Chloride Carbon Dioxide BUN Creatinine Glucose POC Glucose 128 H 117 H 115 H Lactic Acid Calcium Magnesium Iron TIBC Ferritin AST ALT Lactate Dehydrogenase Troponin T C-Reactive Protein Total Protein Albumin Prealbumin Cholesterol LDL Cholesterol Direct HDL Cholesterol Urine WBC (Auto) Vancomycin Trough Coronavirus (PCR) Crossmatch 08/15/19 08/15/19 08/15/19 06:10 06:10 06:10 WBC 11.6 H RBC 2.68 L Hgb 7.7 L Hct 23.3 L MCV MCH MCHC RDW 19.2 H Plt Count 885 H Lymph % (Auto) [place] % (Auto) Lymph # [place] # Baso # Seg Neutrophils % Seg Neuts % (Manual) Lymphocytes % (Manual) Monocytes % (Manual) Basophils % (Manual) Nucleated RBC % Seg Neutrophils # Seg Neutrophils # Man Lymphocytes # (Manual) Monocytes # (Manual) Eosinophils # (Manual) Basophils # (Manual) PT INR D-Dimer ABG pH ABG pO2 ABG HCO3 ABG O2 Saturation ABG Base Excess ABG Hemoglobin Oxyhemoglobin Sodium Potassium Chloride Carbon Dioxide BUN 6 L Creatinine 0.3 L Glucose 107 H POC Glucose Lactic Acid Calcium 8.2 L Magnesium 1.50 L Iron TIBC Ferritin AST ALT Lactate Dehydrogenase Troponin T C-Reactive Protein Total Protein Albumin Prealbumin Cholesterol LDL Cholesterol Direct HDL Cholesterol Urine WBC (Auto) Vancomycin Trough Coronavirus (PCR) Crossmatch 08/15/19 08/16/19 08/16/19 12:12 00:05 05:00 WBC 13.3 H RBC 2.87 L Hgb 8.1 L Hct 24.9 L MCV MCH MCHC RDW 18.7 H Plt Count 962 H Lymph % (Auto) [place] % (Auto) Lymph # [place] # Baso # Seg Neutrophils % Seg Neuts % (Manual) Lymphocytes % (Manual) Monocytes % (Manual) Basophils % (Manual) Nucleated RBC % Seg Neutrophils # Seg Neutrophils # Man Lymphocytes # (Manual) Monocytes # (Manual) Eosinophils # (Manual) Basophils # (Manual) PT INR D-Dimer ABG pH ABG pO2 ABG HCO3 ABG O2 Saturation ABG Base Excess ABG Hemoglobin Oxyhemoglobin Sodium Potassium Chloride Carbon Dioxide BUN Creatinine Glucose POC Glucose 112 H 111 H Lactic Acid Calcium Magnesium Iron TIBC Ferritin AST ALT Lactate Dehydrogenase Troponin T C-Reactive Protein Total Protein Albumin Prealbumin Cholesterol LDL Cholesterol Direct HDL Cholesterol Urine WBC (Auto) Vancomycin Trough Coronavirus (PCR) Crossmatch 08/16/19 08/16/19 08/16/19 05:00 05:00 23:35 WBC RBC Hgb Hct MCV MCH MCHC RDW Plt Count Lymph % (Auto) [place] % (Auto) Lymph # [place] # Baso # Seg Neutrophils % Seg Neuts % (Manual) Lymphocytes % (Manual) Monocytes % (Manual) Basophils % (Manual) Nucleated RBC % Seg Neutrophils # Seg Neutrophils # Man Lymphocytes # (Manual) Monocytes # (Manual) Eosinophils # (Manual) Basophils # (Manual) PT INR D-Dimer ABG pH ABG pO2 ABG HCO3 ABG O2 Saturation ABG Base Excess ABG Hemoglobin Oxyhemoglobin Sodium 135 L Potassium Chloride Carbon Dioxide BUN 6 L Creatinine 0.3 L Glucose POC Glucose 108 H Lactic Acid Calcium 8.2 L Magnesium Iron TIBC Ferritin AST ALT Lactate Dehydrogenase Troponin T C-Reactive Protein 2.70 H Total Protein Albumin 2.1 L Prealbumin Cholesterol LDL Cholesterol Direct HDL Cholesterol Urine WBC (Auto) Vancomycin Trough Coronavirus (PCR) Crossmatch 08/17/19 08/17/19 08/17/19 05:15 20:20 23:42 WBC RBC Hgb Hct MCV MCH MCHC RDW Plt Count Lymph % (Auto) [place] % (Auto) Lymph # [place] # Baso # Seg Neutrophils % Seg Neuts % (Manual) Lymphocytes % (Manual) Monocytes % (Manual) Basophils % (Manual) Nucleated RBC % Seg Neutrophils # Seg Neutrophils # Man Lymphocytes # (Manual) Monocytes # (Manual) Eosinophils # (Manual) Basophils # (Manual) PT INR D-Dimer ABG pH ABG pO2 ABG HCO3 27.8 H ABG O2 Saturation ABG Base Excess ABG Hemoglobin 11.4 L Oxyhemoglobin 94.6 L Sodium Potassium Chloride Carbon Dioxide BUN Creatinine Glucose POC Glucose 138 H 132 H Lactic Acid Calcium Magnesium Iron TIBC Ferritin AST ALT Lactate Dehydrogenase Troponin T C-Reactive Protein Total Protein Albumin Prealbumin Cholesterol LDL Cholesterol Direct HDL Cholesterol Urine WBC (Auto) Vancomycin Trough Coronavirus (PCR) Crossmatch 08/18/19 08/18/19 08/18/19 06:00 06:00 12:02 WBC 19.7 H RBC 3.30 L Hgb 9.3 L Hct 28.5 L MCV MCH MCHC RDW 18.9 H Plt Count 923 H Lymph % (Auto) [place] % (Auto) Lymph # [place] # Baso # Seg Neutrophils % Seg Neuts % (Manual) Lymphocytes % (Manual) Monocytes % (Manual) Basophils % (Manual) Nucleated RBC % Seg Neutrophils # Seg Neutrophils # Man Lymphocytes # (Manual) Monocytes # (Manual) Eosinophils # (Manual) Basophils # (Manual) PT INR D-Dimer ABG pH ABG pO2 ABG HCO3 ABG O2 Saturation ABG Base Excess ABG Hemoglobin Oxyhemoglobin Sodium 136 L Potassium Chloride Carbon Dioxide BUN Creatinine 0.4 L Glucose 71 L POC Glucose 123 H Lactic Acid Calcium Magnesium Iron TIBC Ferritin AST ALT Lactate Dehydrogenase Troponin T C-Reactive Protein Total Protein Albumin Prealbumin Cholesterol LDL Cholesterol Direct HDL Cholesterol Urine WBC (Auto) Vancomycin Trough Coronavirus (PCR) Crossmatch 08/18/19 08/18/19 08/19/19 18:23 23:16 04:57 WBC RBC Hgb Hct MCV MCH MCHC RDW Plt Count Lymph % (Auto) [place] % (Auto) Lymph # [place] # Baso # Seg Neutrophils % Seg Neuts % (Manual) Lymphocytes % (Manual) Monocytes % (Manual) Basophils % (Manual) Nucleated RBC % Seg Neutrophils # Seg Neutrophils # Man Lymphocytes # (Manual) Monocytes # (Manual) Eosinophils # (Manual) Basophils # (Manual) PT INR D-Dimer ABG pH ABG pO2 ABG HCO3 ABG O2 Saturation ABG Base Excess ABG Hemoglobin Oxyhemoglobin Sodium Potassium Chloride Carbon Dioxide BUN Creatinine Glucose POC Glucose 140 H 159 H 134 H Lactic Acid Calcium Magnesium Iron TIBC Ferritin AST ALT Lactate Dehydrogenase Troponin T C-Reactive Protein Total Protein Albumin Prealbumin Cholesterol LDL Cholesterol Direct HDL Cholesterol Urine WBC (Auto) Vancomycin Trough Coronavirus (PCR) Crossmatch 08/19/19 08/19/19 08/19/19 07:44 08:17 18:15 WBC 30.5 H RBC 2.87 L Hgb 7.9 L Hct 24.5 L MCV MCH MCHC RDW 18.8 H Plt Count 772 H Lymph % (Auto) [place] % (Auto) Lymph # [place] # Baso # Seg Neutrophils % Seg Neuts % (Manual) 89.0 H Lymphocytes % (Manual) 4.0 L Monocytes % (Manual) Basophils % (Manual) 2.0 H Nucleated RBC % Seg Neutrophils # Seg Neutrophils # Man 27.1 H Lymphocytes # (Manual) Monocytes # (Manual) 0.9 H Eosinophils # (Manual) 0.6 H Basophils # (Manual) 0.6 H PT INR D-Dimer ABG pH ABG pO2 ABG HCO3 ABG O2 Saturation ABG Base Excess ABG Hemoglobin Oxyhemoglobin Sodium 136 L Potassium Chloride Carbon Dioxide BUN Creatinine 0.3 L Glucose POC Glucose 106 H Lactic Acid Calcium 8.2 L Magnesium Iron TIBC Ferritin AST ALT Lactate Dehydrogenase Troponin T C-Reactive Protein Total Protein Albumin Prealbumin Cholesterol LDL Cholesterol Direct HDL Cholesterol Urine WBC (Auto) Vancomycin Trough Coronavirus (PCR) Crossmatch 08/19/19 08/20/19 08/20/19 23:46 06:20 18:34 WBC RBC Hgb Hct MCV MCH MCHC RDW Plt Count Lymph % (Auto) [place] % (Auto) Lymph # [place] # Baso # Seg Neutrophils % Seg Neuts % (Manual) Lymphocytes % (Manual) Monocytes % (Manual) Basophils % (Manual) Nucleated RBC % Seg Neutrophils # Seg Neutrophils # Man Lymphocytes # (Manual) Monocytes # (Manual) Eosinophils # (Manual) Basophils # (Manual) PT INR D-Dimer ABG pH ABG pO2 ABG HCO3 ABG O2 Saturation ABG Base Excess ABG Hemoglobin Oxyhemoglobin Sodium Potassium Chloride Carbon Dioxide BUN Creatinine Glucose POC Glucose 144 H 115 H 125 H Lactic Acid Calcium Magnesium Iron TIBC Ferritin AST ALT Lactate Dehydrogenase Troponin T C-Reactive Protein Total Protein Albumin Prealbumin Cholesterol LDL Cholesterol Direct HDL Cholesterol Urine WBC (Auto) Vancomycin Trough Coronavirus (PCR) Crossmatch 08/20/19 08/20/19 08/21/19 Unknown Unknown 11:56 WBC 18.7 H RBC 2.70 L Hgb 7.6 L Hct 23.1 L MCV MCH MCHC RDW 18.9 H Plt Count 690 H Lymph % (Auto) [place] % (Auto) Lymph # [place] # Baso # Seg Neutrophils % Seg Neuts % (Manual) Lymphocytes % (Manual) Monocytes % (Manual) Basophils % (Manual) Nucleated RBC % Seg Neutrophils # Seg Neutrophils # Man Lymphocytes # (Manual) Monocytes # (Manual) Eosinophils # (Manual) Basophils # (Manual) PT INR D-Dimer ABG pH ABG pO2 ABG HCO3 ABG O2 Saturation ABG Base Excess ABG Hemoglobin Oxyhemoglobin Sodium 134 L Potassium Chloride 97.9 L Carbon Dioxide BUN Creatinine 0.3 L Glucose 115 H POC Glucose 116 H Lactic Acid Calcium 8.2 L Magnesium Iron TIBC Ferritin AST ALT Lactate Dehydrogenase Troponin T C-Reactive Protein Total Protein Albumin Prealbumin Cholesterol LDL Cholesterol Direct HDL Cholesterol Urine WBC (Auto) Vancomycin Trough Coronavirus (PCR) Crossmatch 08/21/19 08/22/19 08/22/19 18:14 00:31 05:53 WBC RBC Hgb Hct MCV MCH MCHC RDW Plt Count Lymph % (Auto) [place] % (Auto) Lymph # [place] # Baso # Seg Neutrophils % Seg Neuts % (Manual) Lymphocytes % (Manual) Monocytes % (Manual) Basophils % (Manual) Nucleated RBC % Seg Neutrophils # Seg Neutrophils # Man Lymphocytes # (Manual) Monocytes # (Manual) Eosinophils # (Manual) Basophils # (Manual) PT INR D-Dimer ABG pH ABG pO2 ABG HCO3 ABG O2 Saturation ABG Base Excess ABG Hemoglobin Oxyhemoglobin Sodium Potassium Chloride Carbon Dioxide BUN Creatinine Glucose POC Glucose 113 H 106 H 109 H Lactic Acid Calcium Magnesium Iron TIBC Ferritin AST ALT Lactate Dehydrogenase Troponin T C-Reactive Protein Total Protein Albumin Prealbumin Cholesterol LDL Cholesterol Direct HDL Cholesterol Urine WBC (Auto) Vancomycin Trough Coronavirus (PCR) Crossmatch 08/22/19 08/23/19 08/23/19 18:35 00:18 06:00 WBC 12.3 H RBC 2.92 L Hgb 8.0 L Hct 24.6 L MCV MCH MCHC RDW 18.5 H Plt Count 661 H Lymph % (Auto) 11.7 L [place] % (Auto) 9.2 H Lymph # [place] # 1.1 H Baso # Seg Neutrophils % 75.6 H Seg Neuts % (Manual) Lymphocytes % (Manual) Monocytes % (Manual) Basophils % (Manual) Nucleated RBC % Seg Neutrophils # 9.3 H Seg Neutrophils # Man Lymphocytes # (Manual) Monocytes # (Manual) Eosinophils # (Manual) Basophils # (Manual) PT INR D-Dimer ABG pH ABG pO2 ABG HCO3 ABG O2 Saturation ABG Base Excess ABG Hemoglobin Oxyhemoglobin Sodium Potassium Chloride Carbon Dioxide BUN Creatinine Glucose POC Glucose 130 H 124 H Lactic Acid Calcium Magnesium Iron TIBC Ferritin AST ALT Lactate Dehydrogenase Troponin T C-Reactive Protein Total Protein Albumin Prealbumin Cholesterol LDL Cholesterol Direct HDL Cholesterol Urine WBC (Auto) Vancomycin Trough Coronavirus (PCR) Crossmatch 08/23/19 08/23/19 08/24/19 06:09 17:46 00:04 WBC RBC Hgb Hct MCV MCH MCHC RDW Plt Count Lymph % (Auto) [place] % (Auto) Lymph # [place] # Baso # Seg Neutrophils % Seg Neuts % (Manual) Lymphocytes % (Manual) Monocytes % (Manual) Basophils % (Manual) Nucleated RBC % Seg Neutrophils # Seg Neutrophils # Man Lymphocytes # (Manual) Monocytes # (Manual) Eosinophils # (Manual) Basophils # (Manual) PT INR D-Dimer ABG pH ABG pO2 ABG HCO3 ABG O2 Saturation ABG Base Excess ABG Hemoglobin Oxyhemoglobin Sodium Potassium Chloride Carbon Dioxide BUN Creatinine Glucose POC Glucose 117 H 125 H 113 H Lactic Acid Calcium Magnesium Iron TIBC Ferritin AST ALT Lactate Dehydrogenase Troponin T C-Reactive Protein Total Protein Albumin Prealbumin Cholesterol LDL Cholesterol Direct HDL Cholesterol Urine WBC (Auto) Vancomycin Trough Coronavirus (PCR) Crossmatch 08/24/19 08/24/19 08/24/19 05:34 12:28 17:32 WBC RBC Hgb Hct MCV MCH MCHC RDW Plt Count Lymph % (Auto) [place] % (Auto) Lymph # [place] # Baso # Seg Neutrophils % Seg Neuts % (Manual) Lymphocytes % (Manual) Monocytes % (Manual) Basophils % (Manual) Nucleated RBC % Seg Neutrophils # Seg Neutrophils # Man Lymphocytes # (Manual) Monocytes # (Manual) Eosinophils # (Manual) Basophils # (Manual) PT INR D-Dimer ABG pH ABG pO2 ABG HCO3 ABG O2 Saturation ABG Base Excess ABG Hemoglobin Oxyhemoglobin Sodium Potassium Chloride Carbon Dioxide BUN Creatinine Glucose POC Glucose 128 H 127 H 116 H Lactic Acid Calcium Magnesium Iron TIBC Ferritin AST ALT Lactate Dehydrogenase Troponin T C-Reactive Protein Total Protein Albumin Prealbumin Cholesterol LDL Cholesterol Direct HDL Cholesterol Urine WBC (Auto) Vancomycin Trough Coronavirus (PCR) Crossmatch 08/24/19 08/25/19 08/25/19 23:41 05:37 12:30 WBC RBC Hgb Hct MCV MCH MCHC RDW Plt Count Lymph % (Auto) [place] % (Auto) Lymph # [place] # Baso # Seg Neutrophils % Seg Neuts % (Manual) Lymphocytes % (Manual) Monocytes % (Manual) Basophils % (Manual) Nucleated RBC % Seg Neutrophils # Seg Neutrophils # Man Lymphocytes # (Manual) Monocytes # (Manual) Eosinophils # (Manual) Basophils # (Manual) PT INR D-Dimer ABG pH ABG pO2 ABG HCO3 ABG O2 Saturation ABG Base Excess ABG Hemoglobin Oxyhemoglobin Sodium Potassium Chloride Carbon Dioxide BUN Creatinine Glucose POC Glucose 107 H 129 H 110 H Lactic Acid Calcium Magnesium Iron TIBC Ferritin AST ALT Lactate Dehydrogenase Troponin T C-Reactive Protein Total Protein Albumin Prealbumin Cholesterol LDL Cholesterol Direct HDL Cholesterol Urine WBC (Auto) Vancomycin Trough Coronavirus (PCR) Crossmatch 06/06/20 06/06/20 06/07/20 17:49 23:55 05:35 WBC RBC Hgb Hct MCV MCH MCHC RDW Plt Count Lymph % (Auto) [place] % (Auto) Lymph # [place] # Baso # Seg Neutrophils % Seg Neuts % (Manual) Lymphocytes % (Manual) Monocytes % (Manual) Basophils % (Manual) Nucleated RBC % Seg Neutrophils # Seg Neutrophils # Man Lymphocytes # (Manual) Monocytes # (Manual) Eosinophils # (Manual) Basophils # (Manual) PT INR D-Dimer ABG pH ABG pO2 ABG HCO3 ABG O2 Saturation ABG Base Excess ABG Hemoglobin Oxyhemoglobin Sodium Potassium Chloride Carbon Dioxide BUN Creatinine Glucose POC Glucose 107 H 137 H 117 H Lactic Acid Calcium Magnesium Iron TIBC Ferritin AST ALT Lactate Dehydrogenase Troponin T C-Reactive Protein Total Protein Albumin Prealbumin Cholesterol LDL Cholesterol Direct HDL Cholesterol Urine WBC (Auto) Vancomycin Trough Coronavirus (PCR) Crossmatch 08/27/19 08/27/19 08/27/19 00:59 06:01 07:21 WBC 11.6 H RBC 3.15 L Hgb 8.3 L Hct 26.1 L MCV 83 L MCH 26 L MCHC RDW 18.6 H Plt Count 743 H Lymph % (Auto) 11.8 L [place] % (Auto) 8.8 H Lymph # [place] # 1.0 H Baso # Seg Neutrophils % 75.3 H Seg Neuts % (Manual) Lymphocytes % (Manual) Monocytes % (Manual) Basophils % (Manual) Nucleated RBC % Seg Neutrophils # 8.7 H Seg Neutrophils # Man Lymphocytes # (Manual) Monocytes # (Manual) Eosinophils # (Manual) Basophils # (Manual) PT INR D-Dimer ABG pH ABG pO2 ABG HCO3 ABG O2 Saturation ABG Base Excess ABG Hemoglobin Oxyhemoglobin Sodium Potassium Chloride Carbon Dioxide BUN Creatinine Glucose POC Glucose 126 H 134 H Lactic Acid Calcium Magnesium Iron TIBC Ferritin AST ALT Lactate Dehydrogenase Troponin T C-Reactive Protein Total Protein Albumin Prealbumin Cholesterol LDL Cholesterol Direct HDL Cholesterol Urine WBC (Auto) Vancomycin Trough Coronavirus (PCR) Crossmatch 08/27/19 08/27/19 08/28/19 07:21 18:05 00:37 WBC RBC Hgb Hct MCV MCH MCHC RDW Plt Count Lymph % (Auto) [place] % (Auto) Lymph # [place] # Baso # Seg Neutrophils % Seg Neuts % (Manual) Lymphocytes % (Manual) Monocytes % (Manual) Basophils % (Manual) Nucleated RBC % Seg Neutrophils # Seg Neutrophils # Man Lymphocytes # (Manual) Monocytes # (Manual) Eosinophils # (Manual) Basophils # (Manual) PT INR D-Dimer ABG pH ABG pO2 ABG HCO3 ABG O2 Saturation ABG Base Excess ABG Hemoglobin Oxyhemoglobin Sodium 132 L Potassium 5.1 H Chloride 97.6 L Carbon Dioxide BUN Creatinine 0.3 L Glucose 119 H POC Glucose 127 H 106 H Lactic Acid Calcium Magnesium Iron TIBC Ferritin AST ALT Lactate Dehydrogenase Troponin T C-Reactive Protein Total Protein Albumin Prealbumin Cholesterol LDL Cholesterol Direct HDL Cholesterol Urine WBC (Auto) Vancomycin Trough Coronavirus (PCR) Crossmatch Allied health notes reviewed: nursing
[2019-08-28] MEDS: METOCLOPRAMIDE 10 MG/2 ML INJ IV SCH (14:26)
[2019-08-28] MEDS: DOCUSATE SODIUM 100 MG/10 ML ORAL LIQD PO SCH ×2 (14:27→21:42)
--- NOTE | 2019-08-28 14:33 | XRay Report ---
ABDOMEN 1 VIEW(S) INDICATION / CLINICAL INFORMATION: vomiting. COMPARISON: 08/25/2019 FINDINGS: TUBES / LINES: Stable satisfactory device positioning. BOWEL GAS PATTERN: There is moderate gas throughout small and large bowel loops which is grossly unch anged since the exam 3 days ago. FREE AIR / EXTRALUMINAL GAS: None seen. ADDITIONAL FINDINGS: No significant additional findings. IMPRESSION: Findings suggestive of an ileus. No significant change since 08/25/2019 exam. Signer Name: Cameron Guaman Jr, MD Signed: 08/28/2019 2:29 PM Workstation Name: [id number]
--- NOTE | 2019-08-28 15:37 | Progress Note ---
Assessment and Plan Cultures: 07/03/2019 urine culture: No growth 07/03/2019 Tracheal aspirate: E.coli 07/29/2019 urine culture: neg 07/30/2019 blood culture: no growth tracheal asp + Pseudomonas 08/06/2019 blood culture: no growth 08/09/2019 Wound MDR Enterobacter 08/16/2019 blood culture: no growth to date 08/20/2019 COVID-19 PCR: negative A/P: 69-year-old male with CVA, hypertension, dementia, schizophrenia, alcohol use disorder was admitted to the emergency room after being brought in by EMS with progressive shortness of breath and unresponsiveness. He was noted to have agonal breathing and a faint pulse requiring CPR. It seems patient was on hospice recently, prior to admission. #Shock, likely septic: shock resolved, remains off pressors. still intermittent fever, leukocytosis worse again: bacterial pneumonia vs sacral decubitus infection. #Non-resolving pneumonia/Cavitary pneumonia: ? abscess. Sputum +Pseudomonas. CT shows RUL pneumonia with 2.4 cm cavity and LLL pneumonia with moderate left pleural effusion. No need for thoracentesis per Pulm. #Penile/scrotal and buttocks wounds: ?cellulitis #Sacral decubitus: worsening on last exam ? necrotic. Evaluated for surgery, no indications for intervention. 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 bleeding overnight s/p surgical management bedside, 08/09/2019 Wound MDR Enterobacter likely a colonizer (superficial wound cx) #UTI: per documentation initial carroll placed on 07/03, exchanged on 07/31. #Severe COVID-19 disease and pneumonia: Markers improving. Completed Plaquenil. Completed Ceftriaxone for treatment E.coli in tracheal aspirate. Repeat COVID finally negative on 08/20/2019. #Acute respiratory failure: remains on mechanical ventilation. #Multiple skin tears documented on admission #Anemia: from sacral wound bleeding Recs: Continue IV Levofloxacin Day 10 of 10 Fevers improving, but recurrent today. WBC though is trending down. Overall prognosis is extremely poor. Continue wound care Mekhi Barboza MD [facility] M: [phone] O: [phone] F: [phone] Subjective Date of service: 08/28/19 Principal diagnosis: Bilateral pneumonia, severe sepsis with septic shock, encephalopathy Interval history: Recurrently febrile to 100.6 with a white count of 11.6 which is slightly improved. Objective - Exam Narrative Exam: Narrative Exam: Physical Exam (reviewed in chart due to PPE conservation) Constitutional: intubated, sedated, on the vent Head, Ears, Nose: normocephalic, atraumatic Eyes: limited due to PPE conservation strategy Neck: intubated Oral: intubated Cardiovascular: limited due to PPE conservation strategy Respiratory: limited due to PPE conservation strategy GI: limited due to PPE conservation strategy Musculoskeletal: limited due to PPE conservation strategy Skin: limited due to PPE conservation strategy. Decubitus + Hem/Lymphatic: limited due to PPE conservation strategy Psych: no agitation Neurological: sedated, intubated, on the vent, exam limited - Constitutional Vitals: Vital Signs Temp Pulse Resp BP Pulse Ox 97.9 F 109 H 20 100/67 98 08/28/19 12:00 08/28/19 14:01 08/28/19 14:01 08/28/19 14:01 08/28/19 14:01 Temperature -Last 24 Hours Temperature 97.9 F Temperature 97.9 F Temperature 100.6 F Temperature 100.4 F Temperature 98.3 F Temperature 99.1 F - Labs CBC & Chem 7: 08/27/19 07:21 08/27/19 07:21 Labs: Abnormal lab results 08/27/19 08/28/19 Range/Units 18:05 00:37 POC Glucose 127 H 106 H (70-105)
--- NOTE | 2019-08-28 19:12 | Progress Note ---
Assessment and Plan Assessment and plan: Patient feels better , no new concerns reported by the nursing Awaiting trach and PEG, scheduled for 08/31/2019 08/20/2019; hernandez PCR negative 08/10/2019; hernandez PCR positive 07/29/2019; hernandez PCR positive 07/04/2019; hernandez PCR positive --Vomitings: Probably secondary to high residuals Hold tube feeding, IV Zofran, resume tube feedings again tomorrow Discussed with patient's nurse -- Acute hypoxic respiratory Failure vent dependent Unable to wean, planning trach and PEG Patient needs to have a negative COVID for the procedure Patient's COVID-19 test is negative[08/20/2019] --Bilateral PNA with COVID 19 infection. On ventilatory support, unable to wean Pulmonary critical following --COVid positive pneumonia with severe sepsis Possible abscess, no need for drianage per ID/pULM Received Plaquenil and cefepime, Currently patient is on Levaquin per ID --Recurrent fever: Afebrile now --COPD with exacerbation Likely due to COVID-19 pneumonia Continue scheduled nebs --Acute metabolic encephalopathy: Unchanged despite no sedation --Septic shock: Off pressors Monitor blood pressures, fluid bolus if needed --Anemia, Microcytic persistent s/p total 6 unit of PRBC, H&H low stable --Pressure Ulcers: concerning for osteomylitis POA/ Scrotal ulcers buttocks, right lateral foot area, wound and supportive care --Hyponatremia, resolved --DM type 2: Accu-Chek SCC tube feeding, insulin as needed --h/o HTN Essential, BP in the lower range --Seizure D/o/CVA/immobility/BIpolar D/o/SCZ Seizure precautions, antiepileptic medications --Severe PCM, TF supportive care, dietary following --DNR status Very poor prognosis, Recommend hospice Awaiting trach and PEG, and LTAC placement 08/16: Awaiting negative COVID test for placement of trach and PEG. In the meantime we will continue aggressive attempt to wean patient. Cultures have been reviewed and discussed with infectious disease who is managing treatment at this time. Continue wound care dressing. Multiple skin tears were noted on admission will continue to follow. Patient receiving repeat chest x-ray reviewed today shows stable bilateral pulmonary disease and no acuity noted on KUB due to persistent fever ID reviewing increases acidophil wondering if there is drug fever will follow closely. Prognosis remains guarded. 08/17: Continue current management, monitor WBC, mildly elevated. 08/18: Remains on full ventilatory support mental status still unchanged. Continue supportive care. Antibiotics adjustment per ID. Discussed with nursing staff will do some wound dressing changes today to see progression. My understanding was that the wounds did have significant bleed last time but tamponaded. Will monitor in the setting of anemia. 08/19: Remains on full ventilatory support mental status still unchanged. Repeat COVID19 Testing to allow for Trach and Peg and transfer to LTAC. Continue supportive care. Antibiotics adjustment per ID. poor prognosis. b/l chest xray unchanged. continue wound care 08/21/2019: COVID test negative,reconsult surgery for possible trach and PEG , remains intubated on vent 08/22/2019: Surgery reevaluated, scheduled trach and PEG for 08/31/2019 .patient is on vent support 08/23/2019; unable to wean, awaiting trach and PEG, clinically no change 08/24/2019: Patient has tachycardia, added low-dose metoprolol, pending trach and PEG 08/25/2019: Patient's has blood pressure in the lower range, probably due to the metoprolol that was started yesterday for tachycardia We will closely monitor and adjust dose of medication, consider fluid bolus, unable to wean, Pending trach and PEG 08/26/2019; awaiting trach and PEG 08/31/2019, clinically no change 08/27/2019; patient had some vomiting, tube feedings held, Zofran as needed The high probability of a clinically significant, sudden or life threatening deterioration of the [respiratory, CVS, INSTRUCTOR DANCING] system(s) required my full and direct attention, intervention and personal management. The aggregate critical care time was [33] minutes. This time is in addition to time spent performing reported procedures but includes the following: [x] Data Review and interpretation [x] Patient assessment and monitoring of vital signs [x] Documentation [x] Medication orders and management History Interval history: Patient seen and examined at the bedside in his room this morning in ICU Patient's chart and medications reviewed Clinically no change patient orally intubated on ventilatory support Afebrile vital signs reviewed Awaiting trach and PEG on 08/31/2019 Hospitalist Physical - Constitutional Vitals: Temp Pulse Resp BP Pulse Ox 98.3 F 119 H 25 H 104/67 98 08/28/19 16:00 08/28/19 18:00 08/28/19 18:00 08/28/19 18:00 08/28/19 18:00 General appearance: Present: no acute distress, cachectic, other (On vent) - EENT Eyes: Present: PERRL, EOM intact - Neck Neck: Present: supple, normal ROM, other (ET tube and Dobbhoff in place) - Respiratory Respiratory effort: normal Respiratory: bilateral: diminished, rales, negative: rhonchi, wheezing - Cardiovascular Rhythm: regular Heart Sounds: Present: S1 & S2 - Extremities Extremities: no ischemia, No edema - Abdominal General gastrointestinal: soft, non-tender, non-distended, normal bowel sounds - Integumentary Integumentary: Present: clear, warm - Psychiatric Psychiatric: other (Intubated on vent) - Neurologic Neurologic: other (Intubated on vent) HEART Score - HEART Score Troponin: Troponin T 0.013 ng/mL (0.00-0.029) 07/04/19 07:05 Results - Labs CBC & Chem 7: 08/27/19 07:21 08/27/19 07:21 Labs: Laboratory Last Values WBC 11.6 K/mm3 (4.5-11.0) H 08/27/19 07:21 RBC 3.15 M/mm3 (3.65-5.03) L 08/27/19 07:21 Hgb 8.3 gm/dl (11.8-15.2) L 08/27/19 07:21 Hct 26.1 % (35.5-45.6) L 08/27/19 07:21 MCV 83 fl (84-94) L 08/27/19 07:21 MCH 26 pg (28-32) L 08/27/19 07:21 MCHC 32 % (32-34) 08/27/19 07:21 RDW 18.6 % (13.2-15.2) H 08/27/19 07:21 Plt Count 743 K/mm3 (140-440) H 08/27/19 07:21 Lymph % (Auto) 11.8 % (13.4-35.0) L 08/27/19 07:21 [place] % (Auto) 8.8 % (0.0-7.3) H 08/27/19 07:21 Eos % (Auto) 2.9 % (0.0-4.3) 08/27/19 07:21 Baso % (Auto) 1.2 % (0.0-1.8) 08/27/19 07:21 Lymph # 1.4 K/mm3 (1.2-5.4) 08/27/19 07:21 [place] # 1.0 K/mm3 (0.0-0.8) H 08/27/19 07:21 Eos # 0.3 K/mm3 (0.0-0.4) 08/27/19 07:21 Baso # 0.1 K/mm3 (0.0-0.1) 08/27/19 07:21 Add Manual Diff Complete 08/19/19 08:17 Total Counted 100 08/19/19 08:17 Seg Neutrophils % 75.3 % (40.0-70.0) H 08/27/19 07:21 Seg Neuts % (Manual) 89.0 % (40.0-70.0) H 08/19/19 08:17 Band Neutrophils % 0 % 08/19/19 08:17 Lymphocytes % (Manual) 4.0 % (13.4-35.0) L 08/19/19 08:17 Reactive Lymphs % (Man) 0 % 08/19/19 08:17 Monocytes % (Manual) 3.0 % (0.0-7.3) 08/19/19 08:17 Eosinophils % (Manual) 2.0 % (0.0-4.3) 08/19/19 08:17 Basophils % (Manual) 2.0 % (0.0-1.8) H 08/19/19 08:17 Metamyelocytes % 0 % 08/19/19 08:17 Myelocytes % 0 % 08/19/19 08:17 Promyelocytes % 0 % 08/19/19 08:17 Blast Cells % 0 % 08/19/19 08:17 Nucleated RBC % Not Reportable 08/19/19 08:17 Seg Neutrophils # 8.7 K/mm3 (1.8-7.7) H 08/27/19 07:21 Seg Neutrophils # Man 27.1 K/mm3 (1.8-7.7) H 08/19/19 08:17 Band Neutrophils # 0.0 K/mm3 08/19/19 08:17 Lymphocytes # (Manual) 1.2 K/mm3 (1.2-5.4) 08/19/19 08:17 Abs React Lymphs (Man) 0.0 K/mm3 08/19/19 08:17 Monocytes # (Manual) 0.9 K/mm3 (0.0-0.8) H 08/19/19 08:17 Eosinophils # (Manual) 0.6 K/mm3 (0.0-0.4) H 08/19/19 08:17 Basophils # (Manual) 0.6 K/mm3 (0.0-0.1) H 08/19/19 08:17 Metamyelocytes # 0.0 K/mm3 08/19/19 08:17 Myelocytes # 0.0 K/mm3 08/19/19 08:17 Promyelocytes # 0.0 K/mm3 08/19/19 08:17 Blast Cells # 0.0 K/mm3 08/19/19 08:17 WBC Morphology Not Reportable 08/19/19 08:17 Hypersegmented Neuts Not Reportable 08/19/19 08:17 Hyposegmented Neuts Not Reportable 08/19/19 08:17 Hypogranular Neuts Not Reportable 08/19/19 08:17 Smudge Cells Not Reportable 08/19/19 08:17 Toxic Granulation Not Reportable 08/19/19 08:17 Toxic Vacuolation Not Reportable 08/19/19 08:17 Dohle Bodies Not Reportable 08/19/19 08:17 Pelger-Huet Anomaly Not Reportable 08/19/19 08:17 Mendy Rods Not Reportable 08/19/19 08:17 Platelet Estimate Consistent w auto 08/19/19 08:17 Clumped Platelets Not Reportable 08/19/19 08:17 Plt Clumps, EDTA Not Reportable 08/19/19 08:17 Large Platelets Not Reportable 08/19/19 08:17 Giant Platelets Not Reportable 08/19/19 08:17 Platelet Satelliting Not Reportable 08/19/19 08:17 Plt Morphology Comment Not Reportable 08/19/19 08:17 RBC Morphology Not Reportable 08/19/19 08:17 Dimorphic RBCs Not Reportable 08/19/19 08:17 Polychromasia Not Reportable 08/19/19 08:17 Hypochromasia 1+ 08/19/19 08:17 Poikilocytosis Not Reportable 08/19/19 08:17 Anisocytosis Few 08/19/19 08:17 Microcytosis Not Reportable 08/19/19 08:17 Macrocytosis Not Reportable 08/19/19 08:17 Spherocytes Not Reportable 08/19/19 08:17 Pappenheimer Bodies Not Reportable 08/19/19 08:17 Sickle Cells Not Reportable 08/19/19 08:17 Target Cells Not Reportable 08/19/19 08:17 Tear Drop Cells Not Reportable 08/19/19 08:17 Ovalocytes Not Reportable 08/19/19 08:17 Stomatocytes Few 08/01/19 04:57 Helmet Cells Not Reportable 08/19/19 08:17 [place] Bodies Not Reportable 08/19/19 08:17 [place] Rings Not Reportable 08/19/19 08:17 [place] Cells Not Reportable 08/19/19 08:17 Bite Cells Not Reportable 08/19/19 08:17 Crenated Cell Not Reportable 08/19/19 08:17 Elliptocytes Not Reportable 08/19/19 08:17 Acanthocytes (Spur) Not Reportable 08/19/19 08:17 Rouleaux Not Reportable 08/19/19 08:17 Hemoglobin C Crystals Not Reportable 08/19/19 08:17 Schistocytes Not Reportable 08/19/19 08:17 Malaria parasites Not Reportable 08/19/19 08:17 Jeevan Bodies Not Reportable 08/19/19 08:17 Hem Pathologist Commnt No 08/19/19 08:17 PT 16.0 Sec. (12.2-14.9) H 07/03/19 22:20 INR 1.26 (0.87-1.13) H 07/03/19 22:20 D-Dimer 1808.06 ng/mlDDU (0-234) H 08/07/19 10:24 ABG pH 7.405 pH Units (7.350-7.450) 08/17/19 20:20 ABG pCO2 45.3 mm Hg 08/17/19 20:20 ABG pO2 84.2 mm Hg (80.0-90.0) 08/17/19 20:20 ABG HCO3 27.8 mmol/L (20.0-26.0) H 08/17/19 20:20 ABG O2 Saturation 96.9 % (95.0-99.0) 08/17/19 20:20 ABG O2 Content 15.2 (0.0-44) 08/17/19 20:20 ABG Base Excess 2.6 mmol/L (-2.0-3.0) 08/17/19 20:20 ABG Hemoglobin 11.4 gm/dl (14.0-18.0) L 08/17/19 20:20 ABG Carboxyhemoglobin 1.9 % (0.0-5.0) 08/17/19 20:20 ABG Methemoglobin 0.5 % (0.0-1.5) 08/17/19 20:20 Oxyhemoglobin 94.6 % (95.0-99.0) L 08/17/19 20:20 FiO2 28 % 08/17/19 20:20 Sodium 132 mmol/L (137-145) L 08/27/19 07:21 Potassium 5.1 mmol/L (3.6-5.0) H 08/27/19 07:21 Chloride 97.6 mmol/L (98-107) L 08/27/19 07:21 Carbon Dioxide 26 mmol/L (22-30) 08/27/19 07:21 Anion Gap 14 mmol/L 08/27/19 07:21 BUN 15 mg/dL (9-20) 08/27/19 07:21 Creatinine 0.3 mg/dL (0.8-1.5) L 08/27/19 07:21 Estimated GFR > 60 ml/min 08/27/19 07:21 BUN/Creatinine Ratio 50 % 08/27/19 07:21 Glucose 119 mg/dL (75-100) H 08/27/19 07:21 POC Glucose 115 (70-105) H 08/28/19 18:14 Osmolality 268 Mosm/kg 07/05/19 04:00 Lactic Acid 1.70 mmol/L (0.7-2.0) 08/18/19 13:00 Uric Acid 7.2 mg/dL (3.5-7.6) 07/05/19 04:00 Calcium 8.9 mg/dL (8.4-10.2) 08/27/19 07:21 Phosphorus 3.60 mg/dL (2.5-4.5) 07/05/19 04:00 Magnesium 1.50 mg/dL (1.7-2.3) L 08/15/19 06:10 Iron 9 ug/dL (49-181) L 07/04/19 07:05 TIBC 97 mcg/dL (250-450) L 07/04/19 07:05 Ferritin 360.4 ng/mL (13.0-400.0) 08/07/19 10:24 Total Bilirubin 0.20 mg/dL (0.1-1.2) 08/16/19 05:00 AST 20 units/L (5-40) 08/16/19 05:00 ALT 8 units/L (7-56) 08/16/19 05:00 Alkaline Phosphatase 77 units/L (35-129) 08/16/19 05:00 Ammonia 35.0 umol/L (25-60) 07/03/19 23:58 Lactate Dehydrogenase 144 units/L (91-180) 08/07/19 10:24 Troponin T 0.013 ng/mL (0.00-0.029) 07/04/19 07:05 C-Reactive Protein 2.70 mg/dL (0.00-1.30) H 08/16/19 05:00 Total Protein 7.0 g/dL (6.3-8.2) 08/16/19 05:00 Albumin 2.1 g/dL (3.9-5) L 08/16/19 05:00 Albumin/Globulin Ratio 0.4 % 08/16/19 05:00 Prealbumin 0.037 g/L (0.200-0.400) L 07/31/19 04:42 Triglycerides 33 mg/dL (2-149) 07/03/19 19:57 Cholesterol 47 mg/dL (50-199) L 07/03/19 19:57 LDL Cholesterol Direct 25 mg/dL (50-130) L 07/03/19 19:57 HDL Cholesterol 20 mg/dL (40-59) L 07/03/19 19:57 Cholesterol/HDL Ratio 2.35 % 07/03/19 19:57 Procalcitonin < 0.05 ng/mL (<0.15) 08/16/19 14:35 TSH 2.170 mlU/mL (0.270-4.200) 07/03/19 22:20 Total Cortisol 28.0 mcg/dL () 07/05/19 10:11 Urine Color Yellow (Yellow) 07/29/19 11:57 Urine Turbidity Clear (Clear) 07/29/19 11:57 Urine pH 7.0 (5.0-7.0) 07/29/19 11:57 Ur Specific [place] 1.012 (1.003-1.030) 07/29/19 11:57 Urine Protein <15 mg/dl mg/dL (Negative) 07/29/19 11:57 Urine Glucose (UA) Neg mg/dL (Negative) 07/29/19 11:57 Urine Ketones Neg mg/dL (Negative) 07/29/19 11:57 Urine Blood Sm (Negative) 07/29/19 11:57 Urine Nitrite Neg (Negative) 07/29/19 11:57 Urine Bilirubin Neg (Negative) 07/29/19 11:57 Urine Urobilinogen 4.0 mg/dL (<2.0) 07/29/19 11:57 Ur Leukocyte Esterase Mod (Negative) 07/29/19 11:57 Urine WBC (Auto) 63.0 /HPF (0.0-6.0) H 07/29/19 11:57 Urine RBC (Auto) 14.0 /HPF (0.0-6.0) 07/29/19 11:57 U Epithel Cells (Auto) < 1.0 /HPF (0-13.0) 07/29/19 11:57 Urine Bacteria (Auto) 1+ /HPF (Negative) 07/29/19 11:57 Urine WBC Clumps Few /HPF 07/03/19 21:13 Urine Mucus Few /HPF 07/03/19 21:13 Urine Osmolality 293 Mosm/kg 07/05/19 08:15 Vancomycin Trough 23.2 ug/mL (5.0-20.0) H 07/05/19 17:54 Urine Opiates Screen Presumptive negative 07/03/19 21:13 Urine Methadone Screen Presumptive negative 07/03/19 21:13 Ur Barbiturates Screen Presumptive negative 07/03/19 21:13 Ur Phencyclidine Scrn Presumptive negative 07/03/19 21:13 Ur Amphetamines Screen Presumptive negative 07/03/19 21:13 U Benzodiazepines Scrn Presumptive negative 07/03/19 21:13 Urine Cocaine Screen Presumptive negative 07/03/19 21:13 U Marijuana (THC) Screen Presumptive negative 07/03/19 21:13 Drugs of Abuse Note Disclamer 07/03/19 21:13 Plasma/Serum Alcohol < 0.01 % (0-0.07) 07/03/19 23:58 Coronavirus (PCR) Negative (Negative) 08/20/19 12:23 Hepatitis A IgM Ab Non-reactive (NonReactive) 08/07/19 10:24 Hep Bs Antigen Non-reactive (Negative) 08/07/19 10:24 Hep B Core IgM Ab Non-reactive (NonReactive) 08/07/19 10:24 Hepatitis C Antibody Non-reactive (NonReactive) 08/07/19 10:24 Blood Type B POSITIVE 08/09/19 17:59 Antibody Screen Negative 08/09/19 17:59 Crossmatch See Detail 08/09/19 17:59 Wright/IV: Voiding Method Indwelling Catheter IV Catheter Type [Left Triple Lumen Cath Internal Jugular] IV Catheter Type [Left INT / Saline Lock Antecubital] IV Catheter Type [Left Forearm Peripheral IV ] IV Catheter Type [Left Upper Mid-line arm] IV Catheter Type [Right INT / Saline Lock Forearm] IV Catheter Type [Right Hand] INT / Saline Lock IV Catheter Type [Right CVL Femoral] IV Catheter Type [Left INT / Saline Lock External Jugular] Active Medications - Current Medications Current Medications: Generic Name Dose Route Start Last Admin Trade Name Freq PRN Reason Stop Dose Admin Acetaminophen 650 mg 07/04/19 04:24 08/05/19 17:40 Tylenol OR 650 mg Q6H PRN Administration Pain MILD(1-3)/Fever >100.5/MURO Acetaminophen 650 mg 07/10/19 04:00 08/28/19 05:51 Tylenol PO 650 mg Q6HR PRN Administration Pain, Mild (1-3) FEVER Lipase/Protease/Amylase 1 each 07/04/19 10:04 08/11/19 06:03 Pancreazcon [place] 10,500 Unit FEEDTUBE 1 each PRN PRN Administration For Clogged Feeding Tube Aspirin 81 mg 07/05/19 10:00 08/28/19 09:08 Baby Aspirin PO 81 mg QDAY TAMMIE Administration Dextrose 50 ml 07/04/19 06:54 D50w (25gm) Syringe IV Q30MIN PRN Hypoglycemia Protocol Docusate Sodium 100 mg 08/28/19 15:00 08/28/19 14:27 Colace PO 100 mg BID TAMMIE Administration Enoxaparin Sodium 40 mg 07/24/19 10:00 08/28/19 09:09 Enoxaparin SUB-Q 40 mg QDAY@1000 TAMMIE Administration Famotidine 20 mg 07/23/19 22:00 08/28/19 09:09 Pepcid PO 20 mg BID TAMMIE Administration Fentanyl 25 mcg 08/03/19 11:00 08/27/19 10:51 Duragesic TD 25 mcg Q3D [facility] Administration Folic Acid 1 mg 07/05/19 10:00 08/28/19 09:08 Folvite PO 1 mg QDAY [facility] Administration Glycopyrrolate 1 mg 08/16/19 14:00 08/28/19 13:05 Robinul PO 1 mg TID [facility] Administration Hydrophilic Ointment 1 applic 07/03/19 19:56 07/05/19 17:42 Vaseline Lip Therapy TP 1 applic Q2HR PRN Administration Dry Lips Norepinephrine 4 mg in 250 mls @ 7.5 mls/hr 07/03/19 23:00 07/20/19 01:00 Levophed Drip 4 Mg/Ns 250 Ml IV Infused TITR TAMMIE Titration Protocol 2 MCG/MIN Insulin Human Lispro 0 unit 07/07/19 12:00 08/28/19 18:00 Humalog SUB-Q Not Given Q6HR [facility] Protocol Levetiracetam 750 mg 07/06/19 11:00 08/28/19 09:08 Keppra FEEDTUBE 750 mg Q12HR TAMMIE Administration Metoclopramide HCl 5 mg 08/28/19 14:00 08/28/19 14:26 Reglan IV 5 mg Q8H TAMMIE Administration Metoprolol Tartrate 5 mg 07/12/19 15:08 08/27/19 17:44 Metoprolol IV 5 mg Q6HR PRN Administration Tachyarrhythmias Metoprolol Tartrate 12.5 mg 08/24/19 10:00 08/28/19 09:10 Metoprolol PO Not Given BID TAMMIE Multi-Ingred Cream/Lotion/Oil/Oint 1 applic 07/03/19 19:56 07/05/19 13:19 Artificial Tears Ophth Oint OU 1 applic Q4HR PRN Administration Dry Eye(s) Naloxone HCl 0.1 mg 07/04/19 04:24 Naloxone IV Q2MIN PRN Res Rate </= 8 or 02 SAT < 92% Ondansetron HCl 4 mg 08/27/19 17:59 08/27/19 18:19 Zofran IV 4 mg Q4H PRN Administration Nausea And Vomiting Oxycodone/Acetaminophen 1 tab 07/19/19 14:17 08/24/19 15:17 Percocet 5/325 PO 1 tab Q4H PRN Administration Pain, Moderate (4-6) Polyethylene Glycol 17 gm 08/28/19 22:00 Miralax 3350 PO QHS TAMMIE Scopolamine 1 each 07/10/19 11:00 08/27/19 10:51 Transderm-Scop TD 1 each Q3D TAMMIE Administration Simple Syrup 15 ml 07/04/19 10:04 07/10/19 21:56 Simple Syrup FEEDTUBE 15 ml PRN PRN Administration Hypoglycemia Simple Syrup 30 ml 07/04/19 10:04 Simple Syrup FEEDTUBE PRN PRN Hypoglycemia Sodium Bicarbonate 325 mg 07/04/19 10:04 07/20/19 10:20 Sodium Bicarbonate FEEDTUBE 325 mg PRN PRN Administration For Clogged Feeding Tube Sodium Chloride 10 ml 07/04/19 10:00 08/28/19 09:13 Sodium Chloride Flush Syringe 10 Ml IV 10 ml BID TAMMIE Administration Sodium Chloride 10 ml 07/04/19 04:24 Sodium Chloride Flush Syringe 10 Ml IV PRN PRN LINE FLUSH Sodium Hypochlorite 1 applic 07/10/19 14:00 08/28/19 09:13 Dakin's Half Strength TP 1 appful BID TAMMIE Administration Nutrition/Malnutrition Assess - Dietary Evaluation Nutrition/Malnutrition Findings: Nutrition Notes Start: 07/04/19 09:17 Freq: Status: Active Protocol: Document 08/28/19 10:17 LP (Rec: 08/28/19 10:27 LP [id number]) Nutrition Notes Initial or Follow up Reassessment Current Diagnosis Acute Kidney Injury,COPD, Decubitus(Pressure Ulcer), Diabetes,Hypertension Other Pertinent Diagnosis COVID-19 (+), pneu, seizures, schizophrenia, Buttock and R foot PU, Current Diet Osmolite 1.5 at 55ml/hr Labs/Tests 08/27/19 K 5.1 Pertinent Medications Reviewed Height 5 ft 11 in Weight 70.3 kg [place] Body Weight (kg) 78.18 BMI 21.6 Weight change and time frame Wt change noted Weight Status Appropriate Subjective/Other Information Observed TF infusing at goal rate. Pt noted with vomiting yesterday and TF was held until this AM. Pt has trach and PEG scheduled 08/31/19. Percent of energy/protein needs met: 97%/75% Burn Absent Trauma Absent Current % PO Negligible Minimum of two criteria No physical signs of malnutrition #2 Nutrition Diagnosis Increased nutrient needs ( specify in comment below) Diagnosis Progress(for reassessment Continues documentation) #1 Nutrition Diagnosis Inadequate oral intake Diagnosis Progress(for reassessment Continues documentation) Is patient on ventilator? Yes Is Patient Ambulatory and/or Out of Bed No REE-([facility]-confined to bed) [phone] Calculation Used for Recommendations [facility] Additional Notes Protein: 110-184 (1.2-2g/kg) Fluid: 1 ml/kcal or per MD Nutrition Intervention Change Diet Order: Continue TF Nutrition Support: Osmolite 1.5 at 55ml/hr Flush 150ml q4h Kcal 1,980 Protein (gm) 83 Fluid (mL) 1,006 Add Supplement/Snack (indicate name/kcal Scott BID /protein ) Provides kCal: 190 Provides Protein (gm) 5 Goal #1 TF tolerance Goal #2 TF to meet at least 75% of energy and protein needs Anticipated Discharge Needs: unable to determine at this time Follow-Up By: 08/30/19 Additional Comments Follow for K level and need to change TF
[2019-08-28] MEDS: POLYETHYLENE GLYCOL 3350 17 GM POWDER PO SCH (21:43)
[2019-08-29] MEDS: METOCLOPRAMIDE 10 MG/2 ML INJ IV SCH ×4 (07:34→21:17)
[2019-08-29] MEDS: INSULIN LISPRO 100 UNIT/ML SUB-Q SCH ×4 (07:36→18:18)
[2019-08-29] MEDS: GLYCOPYRROLATE 1 MG TAB PO SCH ×3 (08:11→21:17)
[2019-08-29] MEDS: METOPROLOL TARTRATE 25 MG TAB PO SCH ×2 (09:54→21:24)
[2019-08-29] MEDS: FAMOTIDINE 20 MG TAB PO SCH ×2 (09:54→21:17)
[2019-08-29] MEDS: DOCUSATE SODIUM 100 MG/10 ML ORAL LIQD PO SCH ×2 (09:56→21:16)
[2019-08-29] MEDS: levETIRAcetam 500 MG/5 ML ORAL LIQD FEEDTUBE SCH ×2 (09:56→21:17)
[2019-08-29] MEDS: FOLIC ACID 1 MG TAB PO SCH (09:56)
[2019-08-29] MEDS: ASPIRIN 81 MG TAB CHEW PO SCH (09:56)
[2019-08-29] MEDS: ENOXAPARIN 40 MG/0.4 ML INJ SUB-Q SCH (09:56)
[2019-08-29] MEDS: SODIUM HYPOCHLORITE, DAKIN'S 1/2 STRENGTH (0.25%) 473 ML TOPICAL SOLN TP SCH ×2 (09:57→21:25)
--- NOTE | 2019-08-29 10:01 | Progress Note ---
Assessment and Plan Assessment and plan: Awaiting trach and PEG, scheduled for 08/31/2019 08/20/2019; hernandez PCR negative 08/10/2019; hernandez PCR positive 07/29/2019; hernandez PCR positive 07/04/2019; hernandez PCR positive --Ileus; on abdominal x-ray, hold tube feeding Repeat x-ray today, consult surgery Trach and PEG scheduled for 08/31/2019 --Vomitings: Probably secondary to high residuals Hold tube feeding, IV Zofran, resume tube feedings again tomorrow Discussed with patient's nurse -- Acute hypoxic respiratory Failure vent dependent Unable to wean, planning trach and PEG Patient needs to have a negative COVID for the procedure Patient's COVID-19 test is negative[08/20/2019] --Bilateral PNA with COVID 19 infection. On ventilatory support, unable to wean Pulmonary critical following --COVid positive pneumonia with severe sepsis Possible abscess, no need for drianage per ID/pULM Received Plaquenil and cefepime, Currently patient is on Levaquin per ID --Recurrent fever: Afebrile now --COPD with exacerbation Likely due to COVID-19 pneumonia Continue scheduled nebs --Acute metabolic encephalopathy: Unchanged despite no sedation --Septic shock: Off pressors Monitor blood pressures, fluid bolus if needed --Anemia, Microcytic persistent s/p total 6 unit of PRBC, H&H low stable --Pressure Ulcers: concerning for osteomylitis POA/ Scrotal ulcers buttocks, right lateral foot area, wound and supportive care --Hyponatremia, resolved --DM type 2: Accu-Chek SCC tube feeding, insulin as needed --h/o HTN Essential, BP in the lower range --Seizure D/o/CVA/immobility/BIpolar D/o/SCZ Seizure precautions, antiepileptic medications --Severe PCM, TF supportive care, dietary following --DNR status Very poor prognosis, Recommend hospice Awaiting trach and PEG, and LTAC placement Brief Hospital course; 07/04/2019--08/16/2019 please check the medical records for details 08/16: Awaiting negative COVID test for placement of trach and PEG. In the meantime we will continue aggressive attempt to wean patient. Cultures have been reviewed and discussed with infectious disease who is managing treatment at this time. Continue wound care dressing. Multiple skin tears were noted on admission will continue to follow. Patient receiving repeat chest x-ray reviewed today shows stable bilateral pulmonary disease and no acuity noted on KUB due to persistent fever ID reviewing increases acidophil wondering if there is drug fever will follow closely. Prognosis remains guarded. 08/17: Continue current management, monitor WBC, mildly elevated. 08/18: Remains on full ventilatory support mental status still unchanged. Continue supportive care. Antibiotics adjustment per ID. Discussed with nursing staff will do some wound dressing changes today to see progression. My understanding was that the wounds did have significant bleed last time but tamponaded. Will monitor in the setting of anemia. 08/19: Remains on full ventilatory support mental status still unchanged. Repeat COVID19 Testing to allow for Trach and Peg and transfer to LTAC. Continue supportive care. Antibiotics adjustment per ID. poor prognosis. b/l chest xray unchanged. continue wound care 08/21/2019: COVID test negative,reconsult surgery for possible trach and PEG , remains intubated on vent 08/22/2019: Surgery reevaluated, scheduled trach and PEG for 08/31/2019 .patient is on vent support 08/23/2019; unable to wean, awaiting trach and PEG, clinically no change 08/24/2019: Patient has tachycardia, added low-dose metoprolol, pending trach and PEG 08/25/2019: Patient's has blood pressure in the lower range, probably due to the metoprolol that was started yesterday for tachycardia We will closely monitor and adjust dose of medication, consider fluid bolus, unable to wean, Pending trach and PEG 08/26/2019; awaiting trach and PEG 08/31/2019, clinically no change 08/27/2019; patient had some vomiting, tube feedings held, Zofran as needed 08/28/2019; patient has nausea vomiting, requested abdominal x-ray, hold the tube feeding 08/29/2019; patient's abdominal x-ray ileus, n.p.o., surgical reconsult, repeat x-ray The high probability of a clinically significant, sudden or life threatening deterioration of the [respiratory, CVS, FIRE MANAGEMENT TECHNICIAN] system(s) required my full and direct attention, intervention and personal management. The aggregate critical care time was [33] minutes. This time is in addition to time spent performing reported procedures but includes the following: [x] Data Review and interpretation [x] Patient assessment and monitoring of vital signs [x] Documentation [x] Medication orders and management Brief history; 69-year-old male patient with PMH of CVA with RHP, HTN, DM2, SCZ, Dementia, Alcohol use D/o, Seizure D/O, presents to the emergency department via EMS acute hypoxic respiratory failure with an unresponsive . PT was intubated was admitted through emergency room to ICU treated for sepsis, b/l PNA, acute respiratory failure received antibiotics. Patient was tested positive for COVID19. Evaluated by ID , received antibiotics Plaquenil, and inflammatory markers were checked and followed. Patient was hypotensive requiring Levophed, continues to be hypotensive currently on Levophed, unable to wean remains intubated on ventilatory support, critically ill, DNR status however family wants full treatment. Patient had ultrasound-guided thoracentesis, bronchoscopy, and reported brief cardiac arrest status post CPR with return of pulse Patient was vent dependent unable to wean, surgery evaluated recommend trach and PEG probably next week Disposition : LTAC placement post trach and PEG procedure. History Interval history: Patient seen and examined at the bedside, patient's chart and medications reviewed Abdominal x-ray done yesterday findings consistent with ileus Patient remains intubated , vent dependent Scheduled for trach and PEG on 08/31/2019 Most recent COVID negative Vital signs reviewed Hospitalist Physical - Constitutional Vitals: Temp Pulse Resp BP Pulse Ox 99.3 F 91 H 26 H 110/61 99 08/29/19 08:00 08/29/19 08:20 08/29/19 08:20 08/29/19 08:20 08/29/19 08:20 General appearance: Present: no acute distress, cachectic, other (On vent) - EENT Eyes: Present: PERRL, EOM intact - Neck Neck: Present: supple, normal ROM, other (ET tube and Dobbhoff in place) - Respiratory Respiratory effort: normal Respiratory: bilateral: diminished, negative: rales, rhonchi - Cardiovascular Rhythm: regular Heart Sounds: Present: S1 & S2 - Extremities Extremities: no ischemia, No edema - Abdominal General gastrointestinal: soft, non-tender, distended - Integumentary Integumentary: Present: clear, warm - Psychiatric Psychiatric: other (Intubated on vent) - Neurologic Neurologic: other (Intubated on vent) HEART Score - HEART Score Troponin: Troponin T 0.013 ng/mL (0.00-0.029) 07/04/19 07:05 Results - Labs CBC & Chem 7: 08/27/19 07:21 08/27/19 07:21 Labs: Laboratory Last Values WBC 11.6 K/mm3 (4.5-11.0) H 08/27/19 07:21 RBC 3.15 M/mm3 (3.65-5.03) L 08/27/19 07:21 Hgb 8.3 gm/dl (11.8-15.2) L 08/27/19 07:21 Hct 26.1 % (35.5-45.6) L 08/27/19 07:21 MCV 83 fl (84-94) L 08/27/19 07:21 MCH 26 pg (28-32) L 08/27/19 07:21 MCHC 32 % (32-34) 08/27/19 07:21 RDW 18.6 % (13.2-15.2) H 08/27/19 07:21 Plt Count 743 K/mm3 (140-440) H 08/27/19 07:21 Lymph % (Auto) 11.8 % (13.4-35.0) L 08/27/19 07:21 [place] % (Auto) 8.8 % (0.0-7.3) H 08/27/19 07:21 Eos % (Auto) 2.9 % (0.0-4.3) 08/27/19 07:21 Baso % (Auto) 1.2 % (0.0-1.8) 08/27/19 07:21 Lymph # 1.4 K/mm3 (1.2-5.4) 08/27/19 07:21 [place] # 1.0 K/mm3 (0.0-0.8) H 08/27/19 07:21 Eos # 0.3 K/mm3 (0.0-0.4) 08/27/19 07:21 Baso # 0.1 K/mm3 (0.0-0.1) 08/27/19 07:21 Add Manual Diff Complete 08/19/19 08:17 Total Counted 100 08/19/19 08:17 Seg Neutrophils % 75.3 % (40.0-70.0) H 08/27/19 07:21 Seg Neuts % (Manual) 89.0 % (40.0-70.0) H 08/19/19 08:17 Band Neutrophils % 0 % 08/19/19 08:17 Lymphocytes % (Manual) 4.0 % (13.4-35.0) L 08/19/19 08:17 Reactive Lymphs % (Man) 0 % 08/19/19 08:17 Monocytes % (Manual) 3.0 % (0.0-7.3) 08/19/19 08:17 Eosinophils % (Manual) 2.0 % (0.0-4.3) 08/19/19 08:17 Basophils % (Manual) 2.0 % (0.0-1.8) H 08/19/19 08:17 Metamyelocytes % 0 % 08/19/19 08:17 Myelocytes % 0 % 08/19/19 08:17 Promyelocytes % 0 % 08/19/19 08:17 Blast Cells % 0 % 08/19/19 08:17 Nucleated RBC % Not Reportable 08/19/19 08:17 Seg Neutrophils # 8.7 K/mm3 (1.8-7.7) H 08/27/19 07:21 Seg Neutrophils # Man 27.1 K/mm3 (1.8-7.7) H 08/19/19 08:17 Band Neutrophils # 0.0 K/mm3 08/19/19 08:17 Lymphocytes # (Manual) 1.2 K/mm3 (1.2-5.4) 08/19/19 08:17 Abs React Lymphs (Man) 0.0 K/mm3 08/19/19 08:17 Monocytes # (Manual) 0.9 K/mm3 (0.0-0.8) H 08/19/19 08:17 Eosinophils # (Manual) 0.6 K/mm3 (0.0-0.4) H 08/19/19 08:17 Basophils # (Manual) 0.6 K/mm3 (0.0-0.1) H 08/19/19 08:17 Metamyelocytes # 0.0 K/mm3 08/19/19 08:17 Myelocytes # 0.0 K/mm3 08/19/19 08:17 Promyelocytes # 0.0 K/mm3 08/19/19 08:17 Blast Cells # 0.0 K/mm3 08/19/19 08:17 WBC Morphology Not Reportable 08/19/19 08:17 Hypersegmented Neuts Not Reportable 08/19/19 08:17 Hyposegmented Neuts Not Reportable 08/19/19 08:17 Hypogranular Neuts Not Reportable 08/19/19 08:17 Smudge Cells Not Reportable 08/19/19 08:17 Toxic Granulation Not Reportable 08/19/19 08:17 Toxic Vacuolation Not Reportable 08/19/19 08:17 Dohle Bodies Not Reportable 08/19/19 08:17 Pelger-Huet Anomaly Not Reportable 08/19/19 08:17 Mendy Rods Not Reportable 08/19/19 08:17 Platelet Estimate Consistent w auto 08/19/19 08:17 Clumped Platelets Not Reportable 08/19/19 08:17 Plt Clumps, EDTA Not Reportable 08/19/19 08:17 Large Platelets Not Reportable 08/19/19 08:17 Giant Platelets Not Reportable 08/19/19 08:17 Platelet Satelliting Not Reportable 08/19/19 08:17 Plt Morphology Comment Not Reportable 08/19/19 08:17 RBC Morphology Not Reportable 08/19/19 08:17 Dimorphic RBCs Not Reportable 08/19/19 08:17 Polychromasia Not Reportable 08/19/19 08:17 Hypochromasia 1+ 08/19/19 08:17 Poikilocytosis Not Reportable 08/19/19 08:17 Anisocytosis Few 08/19/19 08:17 Microcytosis Not Reportable 08/19/19 08:17 Macrocytosis Not Reportable 08/19/19 08:17 Spherocytes Not Reportable 08/19/19 08:17 Pappenheimer Bodies Not Reportable 08/19/19 08:17 Sickle Cells Not Reportable 08/19/19 08:17 Target Cells Not Reportable 08/19/19 08:17 Tear Drop Cells Not Reportable 08/19/19 08:17 Ovalocytes Not Reportable 08/19/19 08:17 Stomatocytes Few 08/01/19 04:57 Helmet Cells Not Reportable 08/19/19 08:17 [place] Bodies Not Reportable 08/19/19 08:17 [place] Rings Not Reportable 08/19/19 08:17 [place] Cells Not Reportable 08/19/19 08:17 Bite Cells Not Reportable 08/19/19 08:17 Crenated Cell Not Reportable 08/19/19 08:17 Elliptocytes Not Reportable 08/19/19 08:17 Acanthocytes (Spur) Not Reportable 08/19/19 08:17 Rouleaux Not Reportable 08/19/19 08:17 Hemoglobin C Crystals Not Reportable 08/19/19 08:17 Schistocytes Not Reportable 08/19/19 08:17 Malaria parasites Not Reportable 08/19/19 08:17 Jeevan Bodies Not Reportable 08/19/19 08:17 Hem Pathologist Commnt No 08/19/19 08:17 PT 16.0 Sec. (12.2-14.9) H 07/03/19 22:20 INR 1.26 (0.87-1.13) H 07/03/19 22:20 D-Dimer 1808.06 ng/mlDDU (0-234) H 08/07/19 10:24 ABG pH 7.405 pH Units (7.350-7.450) 08/17/19 20:20 ABG pCO2 45.3 mm Hg 08/17/19 20:20 ABG pO2 84.2 mm Hg (80.0-90.0) 08/17/19 20:20 ABG HCO3 27.8 mmol/L (20.0-26.0) H 08/17/19 20:20 ABG O2 Saturation 96.9 % (95.0-99.0) 08/17/19 20:20 ABG O2 Content 15.2 (0.0-44) 08/17/19 20:20 ABG Base Excess 2.6 mmol/L (-2.0-3.0) 08/17/19 20:20 ABG Hemoglobin 11.4 gm/dl (14.0-18.0) L 08/17/19 20:20 ABG Carboxyhemoglobin 1.9 % (0.0-5.0) 08/17/19 20:20 ABG Methemoglobin 0.5 % (0.0-1.5) 08/17/19 20:20 Oxyhemoglobin 94.6 % (95.0-99.0) L 08/17/19 20:20 FiO2 28 % 08/17/19 20:20 Sodium 132 mmol/L (137-145) L 08/27/19 07:21 Potassium 5.1 mmol/L (3.6-5.0) H 08/27/19 07:21 Chloride 97.6 mmol/L (98-107) L 08/27/19 07:21 Carbon Dioxide 26 mmol/L (22-30) 08/27/19 07:21 Anion Gap 14 mmol/L 08/27/19 07:21 BUN 15 mg/dL (9-20) 08/27/19 07:21 Creatinine 0.3 mg/dL (0.8-1.5) L 08/27/19 07:21 Estimated GFR > 60 ml/min 08/27/19 07:21 BUN/Creatinine Ratio 50 % 08/27/19 07:21 Glucose 119 mg/dL (75-100) H 08/27/19 07:21 POC Glucose 146 (70-105) H 08/29/19 00:01 Osmolality 268 Mosm/kg 07/05/19 04:00 Lactic Acid 1.70 mmol/L (0.7-2.0) 08/18/19 13:00 Uric Acid 7.2 mg/dL (3.5-7.6) 07/05/19 04:00 Calcium 8.9 mg/dL (8.4-10.2) 08/27/19 07:21 Phosphorus 3.60 mg/dL (2.5-4.5) 07/05/19 04:00 Magnesium 1.50 mg/dL (1.7-2.3) L 08/15/19 06:10 Iron 9 ug/dL (49-181) L 07/04/19 07:05 TIBC 97 mcg/dL (250-450) L 07/04/19 07:05 Ferritin 360.4 ng/mL (13.0-400.0) 08/07/19 10:24 Total Bilirubin 0.20 mg/dL (0.1-1.2) 08/16/19 05:00 AST 20 units/L (5-40) 08/16/19 05:00 ALT 8 units/L (7-56) 08/16/19 05:00 Alkaline Phosphatase 77 units/L (35-129) 08/16/19 05:00 Ammonia 35.0 umol/L (25-60) 07/03/19 23:58 Lactate Dehydrogenase 144 units/L (91-180) 08/07/19 10:24 Troponin T 0.013 ng/mL (0.00-0.029) 07/04/19 07:05 C-Reactive Protein 2.70 mg/dL (0.00-1.30) H 08/16/19 05:00 Total Protein 7.0 g/dL (6.3-8.2) 08/16/19 05:00 Albumin 2.1 g/dL (3.9-5) L 08/16/19 05:00 Albumin/Globulin Ratio 0.4 % 08/16/19 05:00 Prealbumin 0.037 g/L (0.200-0.400) L 07/31/19 04:42 Triglycerides 33 mg/dL (2-149) 07/03/19 19:57 Cholesterol 47 mg/dL (50-199) L 07/03/19 19:57 LDL Cholesterol Direct 25 mg/dL (50-130) L 07/03/19 19:57 HDL Cholesterol 20 mg/dL (40-59) L 07/03/19 19:57 Cholesterol/HDL Ratio 2.35 % 07/03/19 19:57 Procalcitonin < 0.05 ng/mL (<0.15) 08/16/19 14:35 TSH 2.170 mlU/mL (0.270-4.200) 07/03/19 22:20 Total Cortisol 28.0 mcg/dL () 07/05/19 10:11 Urine Color Yellow (Yellow) 07/29/19 11:57 Urine Turbidity Clear (Clear) 07/29/19 11:57 Urine pH 7.0 (5.0-7.0) 07/29/19 11:57 Ur Specific [place] 1.012 (1.003-1.030) 07/29/19 11:57 Urine Protein <15 mg/dl mg/dL (Negative) 07/29/19 11:57 Urine Glucose (UA) Neg mg/dL (Negative) 07/29/19 11:57 Urine Ketones Neg mg/dL (Negative) 07/29/19 11:57 Urine Blood Sm (Negative) 07/29/19 11:57 Urine Nitrite Neg (Negative) 07/29/19 11:57 Urine Bilirubin Neg (Negative) 07/29/19 11:57 Urine Urobilinogen 4.0 mg/dL (<2.0) 07/29/19 11:57 Ur Leukocyte Esterase Mod (Negative) 07/29/19 11:57 Urine WBC (Auto) 63.0 /HPF (0.0-6.0) H 07/29/19 11:57 Urine RBC (Auto) 14.0 /HPF (0.0-6.0) 07/29/19 11:57 U Epithel Cells (Auto) < 1.0 /HPF (0-13.0) 07/29/19 11:57 Urine Bacteria (Auto) 1+ /HPF (Negative) 07/29/19 11:57 Urine WBC Clumps Few /HPF 07/03/19 21:13 Urine Mucus Few /HPF 07/03/19 21:13 Urine Osmolality 293 Mosm/kg 07/05/19 08:15 Vancomycin Trough 23.2 ug/mL (5.0-20.0) H 07/05/19 17:54 Urine Opiates Screen Presumptive negative 07/03/19 21:13 Urine Methadone Screen Presumptive negative 07/03/19 21:13 Ur Barbiturates Screen Presumptive negative 07/03/19 21:13 Ur Phencyclidine Scrn Presumptive negative 07/03/19 21:13 Ur Amphetamines Screen Presumptive negative 07/03/19 21:13 U Benzodiazepines Scrn Presumptive negative 07/03/19 21:13 Urine Cocaine Screen Presumptive negative 07/03/19 21:13 U Marijuana (THC) Screen Presumptive negative 07/03/19 21:13 Drugs of Abuse Note Disclamer 07/03/19 21:13 Plasma/Serum Alcohol < 0.01 % (0-0.07) 07/03/19 23:58 Coronavirus (PCR) Negative (Negative) 08/20/19 12:23 Hepatitis A IgM Ab Non-reactive (NonReactive) 08/07/19 10:24 Hep Bs Antigen Non-reactive (Negative) 08/07/19 10:24 Hep B Core IgM Ab Non-reactive (NonReactive) 08/07/19 10:24 Hepatitis C Antibody Non-reactive (NonReactive) 05/19/20 10:24 Blood Type B POSITIVE 08/09/19 17:59 Antibody Screen Negative 08/09/19 17:59 Crossmatch See Detail 08/09/19 17:59 Wright/IV: Voiding Method Indwelling Catheter IV Catheter Type [Left Triple Lumen Cath Internal Jugular] IV Catheter Type [Left INT / Saline Lock Antecubital] IV Catheter Type [Left Forearm Peripheral IV ] IV Catheter Type [Left Upper Mid-line arm] IV Catheter Type [Right INT / Saline Lock Forearm] IV Catheter Type [Right Hand] INT / Saline Lock IV Catheter Type [Right CVL Femoral] IV Catheter Type [Left INT / Saline Lock External Jugular] Active Medications - Current Medications Current Medications: Generic Name Dose Route Start Last Admin Trade Name Freq PRN Reason Stop Dose Admin Acetaminophen 650 mg 07/04/19 04:24 08/05/19 17:[address] 650 mg Q6H PRN Administration Pain MILD(1-3)/Fever >100.5/MURO Acetaminophen 650 mg 07/10/19 04:00 08/28/19 05:51 Tylenol PO 650 mg Q6HR PRN Administration Pain, Mild (1-3) FEVER Lipase/Protease/Amylase 1 each 07/04/19 10:04 08/11/19 06:03 Pancreazcon [place] 10,500 Unit FEEDTUBE 1 each PRN PRN Administration For Clogged Feeding Tube Aspirin 81 mg 07/05/19 10:00 08/28/19 09:08 Baby Aspirin PO 81 mg QDAY TAMMIE Administration Dextrose 50 ml 07/04/19 06:54 D50w (25gm) Syringe IV Q30MIN PRN Hypoglycemia Protocol Docusate Sodium 100 mg 08/28/19 15:00 08/28/19 21:42 Colace PO 100 mg BID TAMMIE Administration Enoxaparin Sodium 40 mg 07/24/19 10:00 08/28/19 09:09 Enoxaparin SUB-Q 40 mg QDAY@1000 TAMMIE Administration Famotidine 20 mg 07/23/19 22:00 08/28/19 21:42 Pepcid PO 20 mg BID TAMMIE Administration Fentanyl 25 mcg 08/03/19 11:00 08/27/19 10:51 Duragesic TD 25 mcg Q3D TAMMIE Administration Folic Acid 1 mg 07/05/19 10:00 08/28/19 09:08 Folvite PO 1 mg QDAY TAMMIE Administration Glycopyrrolate 1 mg 08/16/19 14:00 08/29/19 08:11 Robinul PO 1 mg TID [facility] Administration Hydrophilic Ointment 1 applic 07/03/19 19:56 07/05/19 17:42 Vaseline Lip Therapy TP 1 applic Q2HR PRN Administration Dry Lips Norepinephrine 4 mg in 250 mls @ 7.5 mls/hr 07/03/19 23:00 07/20/19 01:00 Levophed Drip 4 Mg/Ns 250 Ml IV Infused TITR [facility] Titration Protocol 2 MCG/MIN Insulin Human Lispro 0 unit 07/07/19 12:00 08/29/19 07:37 Humalog SUB-Q Not Given Q6HR [facility] Protocol Levetiracetam 750 mg 07/06/19 11:00 08/28/19 21:42 Keppra FEEDTUBE 750 mg Q12HR [facility] Administration Metoclopramide HCl 5 mg 08/28/19 14:00 08/29/19 07:36 Reglan IV Not Given Q8H [facility] Metoprolol Tartrate 5 mg 07/12/19 15:08 08/27/19 17:44 Metoprolol IV 5 mg Q6HR PRN Administration Tachyarrhythmias Metoprolol Tartrate 12.5 mg 08/24/19 10:00 08/28/19 21:42 Metoprolol PO 12.5 mg BID [facility] Administration Multi-Ingred Cream/Lotion/Oil/Oint 1 applic 07/03/19 19:56 07/05/19 13:19 Artificial Tears Ophth Oint OU 1 applic Q4HR PRN Administration Dry Eye(s) Naloxone HCl 0.1 mg 07/04/19 04:24 Naloxone IV Q2MIN PRN Res Rate </= 8 or 02 SAT < 92% Ondansetron HCl 4 mg 08/27/19 17:59 08/27/19 18:19 Zofran IV 4 mg Q4H PRN Administration Nausea And Vomiting Oxycodone/Acetaminophen 1 tab 07/19/19 14:17 08/24/19 15:17 Percocet 5/325 PO 1 tab Q4H PRN Administration Pain, Moderate (4-6) Polyethylene Glycol 17 gm 08/28/19 22:00 08/28/19 21:43 Miralax 3350 PO 17 gm QHS TAMMIE Administration Scopolamine 1 each 07/10/19 11:00 08/27/19 10:51 Transderm-Scop TD 1 each Q3D TAMMIE Administration Simple Syrup 15 ml 07/04/19 10:04 07/10/19 21:56 Simple Syrup FEEDTUBE 15 ml PRN PRN Administration Hypoglycemia Simple Syrup 30 ml 07/04/19 10:04 Simple Syrup FEEDTUBE PRN PRN Hypoglycemia Sodium Bicarbonate 325 mg 07/04/19 10:04 07/20/19 10:20 Sodium Bicarbonate FEEDTUBE 325 mg PRN PRN Administration For Clogged Feeding Tube Sodium Chloride 10 ml 07/04/19 10:00 08/29/19 07:35 Sodium Chloride Flush Syringe 10 Ml IV 10 ml BID TAMMIE Administration Sodium Chloride 10 ml 07/04/19 04:24 Sodium Chloride Flush Syringe 10 Ml IV PRN PRN LINE FLUSH Sodium Hypochlorite 1 applic 07/10/19 14:00 08/28/19 21:43 Dakin's Half Strength TP 1 appful BID TAMMIE Administration Nutrition/Malnutrition Assess - Dietary Evaluation Nutrition/Malnutrition Findings: Nutrition Notes Start: 07/04/19 09:17 Freq: Status: Active Protocol: Document 08/28/19 10:17 LP (Rec: 08/28/19 10:27 LP [id number]) Nutrition Notes Initial or Follow up Reassessment Current Diagnosis Acute Kidney Injury,COPD, Decubitus(Pressure Ulcer), Diabetes,Hypertension Other Pertinent Diagnosis COVID-19 (+), pneu, seizures, schizophrenia, Buttock and R foot PU, Current Diet Osmolite 1.5 at 55ml/hr Labs/Tests 08/27/19 K 5.1 Pertinent Medications Reviewed Height 5 ft 11 in Weight 70.3 kg [place] Body Weight (kg) 78.18 BMI 21.6 Weight change and time frame Wt change noted Weight Status Appropriate Subjective/Other Information Observed TF infusing at goal rate. Pt noted with vomiting yesterday and TF was held until this AM. Pt has trach and PEG scheduled 08/31/19. Percent of energy/protein needs met: 97%/75% Burn Absent Trauma Absent Current % PO Negligible Minimum of two criteria No physical signs of malnutrition #2 Nutrition Diagnosis Increased nutrient needs ( specify in comment below) Diagnosis Progress(for reassessment Continues documentation) #1 Nutrition Diagnosis Inadequate oral intake Diagnosis Progress(for reassessment Continues documentation) Is patient on ventilator? Yes Is Patient Ambulatory and/or Out of Bed No REE-([facility]-conf[facility]) 178.024 Calculation Used for Recommendations [facility] Additional Notes Protein: 110-184 (1.2-2g/kg) Fluid: 1 ml/kcal or per MD Nutrition Intervention Change Diet Order: Continue TF Nutrition Support: Osmolite 1.5 at 55ml/hr Flush 150ml q4h Kcal 1,980 Protein (gm) 83 Fluid (mL) 1,006 Add Supplement/Snack (indicate name/kcal Scott BID /protein ) Provides kCal: 190 Provides Protein (gm) 5 Goal #1 TF tolerance Goal #2 TF to meet at least 75% of energy and protein needs Anticipated Discharge Needs: unable to determine at this time Follow-Up By: 08/30/19 Additional Comments Follow for K level and need to change TF
--- NOTE | 2019-08-29 11:57 | XRay Report ---
ABDOMEN 2 VIEW(S) INDICATION / CLINICAL INFORMATION: follow up ileus. COMPARISON: 08/28/2019 FINDINGS: TUBES / LINES: Stable position of NG tube with the tip in the stomach. BOWEL GAS PATTERN/EXTRALUMINAL GAS: Stable moderate gaseous distention throughout the bowel. No pneum atosis or secondary signs of free air. ADDITIONAL FINDINGS: No significant additional findings. IMPRESSION: 1. Stable findings suggestive of adynamic ileus without adverse change from 08/28/2019. Signer Name: Julio Cohen MD Signed: 08/29/2019 11:52 AM Workstation Name: [id number]
--- NOTE | 2019-08-29 13:40 | Progress Note ---
Assessment and Plan Acute hypoxemic respiratory failure on MVS Severe sepsis with Shock. Bilateral Pneumonia. PUI coronavirus-19 infection. Acute possibly on chronic encephalopathy. Oropharyngeal dysphagia. Anemia. Decubitus ulcers Diabetes type 2. Hypertension. Leukocytosis. Anemia that is microcytic. Elevated serum transaminases. [id number] metabolic acidosis. Lactic acidosis. Severe protein-calorie malnutrition ( has advised us she wants a tracheostomy and continued aggressive care) - KUB reviewed; continue scheduled Colace & Miralax - BMP ordered - continue low dose Reglan - tracheostomy placement tentatively for tuesday - meantime, continue daily SBT's; if he shows significant tolerance of SBT's over an extended few day periods a trial of extubation may still be considered especially now he is COVID negative - no new issues otherwise, continue care as below otherwise - repeat COVID-19 negative - prn CXR's and ABG's at this point - continue care as below otherwise - continue fentanyl gtt for pain control / sedation - continue to wean supplemental oxygen for target O2 sat's > 90% acutely - continue daily SAT's and SBT assessment as tolerated - VAP bundle addressed - continue lung protective strategies - continue bronchodilators with pulmonary hygiene per RT - wean per pulmonary driven protocols otherwise - prn Levophed for target MAP > 65 mmHg - continue airborne and contact COVID-19 precautions - s/p anti-infectives and de-escalation per ID recommendations - continue wound care per WCT - sedation prn for target RASS 0 to -1 - accuchecks with glycemic control per SSI (While critically ill target blood glucose of 140-180 mg/dL; avoid hypoglycemia) - to avoid benzodiazepine's, reduce the possibility of delirium - prn analgesia per CPOT score - Maintenance of sleep-wake cycle, avoid delirium - continue enteral nutritional support at goal rate as tolerated - G.I. & VTE prophylaxis - PT/OT/ROM exercises - continue mobility protocols for pressure ulcer prophylaxis - Monitor hemodynamics closely - continue other care per attending / other consultants - discharge planning ongoing concurrently .... Re-evaluate in am & prn CONDITION: CRITICAL PROGNOSIS: GUARDED CODE STATUS: FULL CODE The high probability of a clinically significant, sudden or life-threatening deterioration of the [respiratory & cardiovascular] system(s) required my full and direct attention, intervention and personal management. The aggregate critical care time was [35] minutes without overlap. Time includes spent on; [x] Data Review and interpretation [x] Patient assessment and monitoring of vital signs [x] Documentation [x] Medication orders and management Subjective Date of service: 08/29/19 Principal diagnosis: Bilateral pneumonia, severe sepsis with septic shock, encephalopathy Interval history: Patient is seen today for: Ac hypoxemic Resp failure on MVS; Severe sepsis with Shock; Ivan. Pneumonia; PUI coronavirus-19 infection. Seen and examined at bedside; 24hour events reviewed; nursing and respiratory care staff consulted; no adverse overnight events reported to me; resting in bed; remains on MVS; tolerating SBT this morning well so far; No N/V/F/C Objective Vital Signs - 12hr 08/29/19 08/29/19 08/29/19 02:00 03:00 03:41 Temperature Pulse Rate 86 81 83 Pulse Rate [ From Monitor] Respiratory 14 15 Rate Blood Pressure 119/74 107/61 107/61 O2 Sat by Pulse 99 99 100 Oximetry 08/29/19 08/29/19 08/29/19 04:00 05:00 06:00 Temperature 97.8 F Pulse Rate 87 83 80 Pulse Rate [ 71 From Monitor] Respiratory 17 19 12 Rate Blood Pressure 105/60 124/70 133/73 O2 Sat by Pulse 99 99 100 Oximetry 08/29/19 08/29/19 08/29/19 07:00 07:40 08:00 Temperature 99.3 F Pulse Rate 81 93 H Pulse Rate [ 92 H From Monitor] Respiratory 11 L 19 21 Rate Blood Pressure 110/61 113/64 O2 Sat by Pulse 99 100 99 Oximetry 08/29/19 08/29/19 08/29/19 08:20 09:00 09:54 Temperature Pulse Rate 91 H 95 H 100 H Pulse Rate [ From Monitor] Respiratory 26 H 20 Rate Blood Pressure 110/61 105/62 108/60 O2 Sat by Pulse 99 100 Oximetry 08/29/19 08/29/19 08/29/19 10:00 11:00 12:00 Temperature 98.7 F Pulse Rate 95 H 89 Pulse Rate [ From Monitor] Respiratory 15 16 Rate Blood Pressure 117/63 91/55 O2 Sat by Pulse 99 Oximetry 08/29/19 12:15 Temperature Pulse Rate 89 Pulse Rate [ From Monitor] Respiratory 25 H Rate Blood Pressure 91/55 O2 Sat by Pulse 99 Oximetry Constitutional: appears uncomfortable, other (eelderly and chronically ill looking AAM, normocep[krystina;ic with mildly increased respiratory effort at rest) Eyes: non-icteric ENT: oropharynx moist, other (ETT 24 cm RUTH) Neck: supple, no lymphadenopathy, no JVD Effort: mildly labored Ascultation: Bilateral: diminished breath sounds, rhonchi Percussion: Bilateral: not dull Cardiovascular: regular rate and rhythm Gastrointestinal: normoactive bowel sounds, soft, non-tender, non-distended, o ther (+ PEG tube with mild TF leakage) Integumentary: decubitus ulcer (sacral) Extremities: no cyanosis, no edema, pink and warm, pulses normal Neurologic: pupils equal and round, unable to assess Psychiatric: other (Unable to assess re: AMS) CBC and BMP: 08/30/19 05:10 08/30/19 05:10 ABG, PT/INR, D-dimer: ABG ABG pH 7.405 pH Units (7.350-7.450) 08/17/19 20:20 ABG pCO2 45.3 mm Hg 08/17/19 20:20 ABG pO2 84.2 mm Hg (80.0-90.0) 08/17/19 20:20 ABG O2 Saturation 96.9 % (95.0-99.0) 08/17/19 20:20 PT/INR, D-dimer PT 16.0 Sec. (12.2-14.9) H 07/03/19 22:20 INR 1.26 (0.87-1.13) H 07/03/19 22:20 D-Dimer 1808.06 ng/mlDDU (0-234) H 08/07/19 10:24 Abnormal lab findings: Abnormal Labs 07/03/19 07/03/19 07/03/19 19:57 21:10 21:13 WBC RBC Hgb Hct MCV MCH MCHC RDW Plt Count Lymph % (Auto) [place] % (Auto) Lymph # [place] # Baso # Seg Neutrophils % Seg Neuts % (Manual) Lymphocytes % (Manual) Monocytes % (Manual) Basophils % (Manual) Nucleated RBC % Seg Neutrophils # Seg Neutrophils # Man Lymphocytes # (Manual) Monocytes # (Manual) Eosinophils # (Manual) Basophils # (Manual) PT INR D-Dimer ABG pH 7.238 L ABG pO2 210.8 H ABG HCO3 15.4 L ABG O2 Saturation 99.2 H ABG Base Excess -11.1 L ABG Hemoglobin 8.0 L Oxyhemoglobin Sodium 124 L Potassium Chloride 92.9 L Carbon Dioxide 10 L BUN 23 H Creatinine 0.5 L Glucose 118 H POC Glucose Lactic Acid Calcium 7.0 L Magnesium Iron TIBC Ferritin AST 70 H ALT 88 H Lactate Dehydrogenase Troponin T 0.032 H C-Reactive Protein Total Protein 5.0 L Albumin 1.8 L Prealbumin Cholesterol 47 L LDL Cholesterol Direct 25 L HDL Cholesterol 20 L Urine WBC (Auto) 12.0 H Vancomycin Trough Coronavirus (PCR) Crossmatch 07/03/19 07/03/19 07/03/19 22:20 22:20 22:20 WBC 30.5 H RBC 2.96 L Hgb 7.7 L Hct 23.9 L MCV 81 L MCH 26 L MCHC RDW 18.6 H Plt Count 459 H Lymph % (Auto) [place] % (Auto) Lymph # [place] # Baso # Seg Neutrophils % Seg Neuts % (Manual) 93.0 H Lymphocytes % (Manual) 0.5 L Monocytes % (Manual) Basophils % (Manual) Nucleated RBC % Seg Neutrophils # Seg Neutrophils # Man 28.4 H Lymphocytes # (Manual) 0.2 L Monocytes # (Manual) Eosinophils # (Manual) Basophils # (Manual) PT 16.0 H INR 1.26 H D-Dimer ABG pH ABG pO2 ABG HCO3 ABG O2 Saturation ABG Base Excess ABG Hemoglobin Oxyhemoglobin Sodium Potassium Chloride Carbon Dioxide BUN Creatinine Glucose POC Glucose Lactic Acid 6.90 H* Calcium Magnesium Iron TIBC Ferritin AST ALT Lactate Dehydrogenase Troponin T C-Reactive Protein Total Protein Albumin Prealbumin Cholesterol LDL Cholesterol Direct HDL Cholesterol Urine WBC (Auto) Vancomycin Trough Coronavirus (PCR) Crossmatch 07/03/19 07/04/19 07/04/19 23:58 05:15 07:05 WBC 17.1 H RBC 3.22 L Hgb 8.3 L Hct 25.4 L MCV 79 L MCH 26 L MCHC RDW 18.6 H Plt Count Lymph % (Auto) [place] % (Auto) Lymph # [place] # Baso # Seg Neutrophils % Seg Neuts % (Manual) 74.0 H Lymphocytes % (Manual) 0 L Monocytes % (Manual) Basophils % (Manual) Nucleated RBC % Seg Neutrophils # Seg Neutrophils # Man 12.7 H Lymphocytes # (Manual) 0.0 L Monocytes # (Manual) Eosinophils # (Manual) Basophils # (Manual) PT INR D-Dimer ABG pH 7.310 L ABG pO2 73.2 L ABG HCO3 17.8 L ABG O2 Saturation 93.8 L ABG Base Excess -7.7 L ABG Hemoglobin 9.6 L Oxyhemoglobin 92.3 L Sodium Potassium Chloride Carbon Dioxide BUN Creatinine Glucose POC Glucose Lactic Acid 7.10 H* Calcium Magnesium Iron TIBC Ferritin AST ALT Lactate Dehydrogenase Troponin T C-Reactive Protein Total Protein Albumin Prealbumin Cholesterol LDL Cholesterol Direct HDL Cholesterol Urine WBC (Auto) Vancomycin Trough Coronavirus (PCR) Crossmatch 07/04/19 07/04/19 07/04/19 07:05 07:05 07:05 WBC RBC Hgb Hct MCV MCH MCHC RDW Plt Count Lymph % (Auto) [place] % (Auto) Lymph # [place] # Baso # Seg Neutrophils % Seg Neuts % (Manual) Lymphocytes % (Manual) Monocytes % (Manual) Basophils % (Manual) Nucleated RBC % Seg Neutrophils # Seg Neutrophils # Man Lymphocytes # (Manual) Monocytes # (Manual) Eosinophils # (Manual) Basophils # (Manual) PT INR D-Dimer ABG pH ABG pO2 ABG HCO3 ABG O2 Saturation ABG Base Excess ABG Hemoglobin Oxyhemoglobin Sodium 120 L Potassium 5.1 H Chloride 90.0 L Carbon Dioxide 14 L BUN 26 H Creatinine 0.5 L Glucose POC Glucose Lactic Acid 3.30 H* Calcium 8.0 L Magnesium Iron 9 L TIBC 97 L Ferritin AST 73 H ALT 91 H Lactate Dehydrogenase Troponin T C-Reactive Protein Total Protein 5.5 L Albumin 2.0 L Prealbumin Cholesterol LDL Cholesterol Direct HDL Cholesterol Urine WBC (Auto) Vancomycin Trough Coronavirus (PCR) Crossmatch 07/04/19 07/04/19 07/04/19 09:39 09:39 09:39 WBC RBC Hgb Hct MCV MCH MCHC RDW Plt Count Lymph % (Auto) [place] % (Auto) Lymph # [place] # Baso # Seg Neutrophils % Seg Neuts % (Manual) Lymphocytes % (Manual) Monocytes % (Manual) Basophils % (Manual) Nucleated RBC % Seg Neutrophils # Seg Neutrophils # Man Lymphocytes # (Manual) Monocytes # (Manual) Eosinophils # (Manual) Basophils # (Manual) PT INR D-Dimer 1419.14 H ABG pH ABG pO2 ABG HCO3 ABG O2 Saturation ABG Base Excess ABG Hemoglobin Oxyhemoglobin Sodium Potassium Chloride Carbon Dioxide BUN Creatinine Glucose POC Glucose Lactic Acid Calcium Magnesium Iron TIBC Ferritin 1719.0 H AST ALT Lactate Dehydrogenase 234 H Troponin T C-Reactive Protein 15.50 H Total Protein Albumin Prealbumin Cholesterol LDL Cholesterol Direct HDL Cholesterol Urine WBC (Auto) Vancomycin Trough Coronavirus (PCR) Crossmatch 07/04/19 07/04/19 07/04/19 10:09 18:08 18:28 WBC RBC Hgb Hct MCV MCH MCHC RDW Plt Count Lymph % (Auto) [place] % (Auto) Lymph # [place] # Baso # Seg Neutrophils % Seg Neuts % (Manual) Lymphocytes % (Manual) Monocytes % (Manual) Basophils % (Manual) Nucleated RBC % Seg Neutrophils # Seg Neutrophils # Man Lymphocytes # (Manual) Monocytes # (Manual) Eosinophils # (Manual) Basophils # (Manual) PT INR D-Dimer ABG pH ABG pO2 ABG HCO3 ABG O2 Saturation ABG Base Excess ABG Hemoglobin Oxyhemoglobin Sodium 117 L* Potassium 5.6 H Chloride 90.3 L Carbon Dioxide 16 L BUN 28 H Creatinine 0.5 L Glucose 58 L POC Glucose 65 L Lactic Acid Calcium 8.2 L Magnesium Iron TIBC Ferritin AST ALT Lactate Dehydrogenase Troponin T C-Reactive Protein Total Protein Albumin Prealbumin Cholesterol LDL Cholesterol Direct HDL Cholesterol Urine WBC (Auto) Vancomycin Trough Coronavirus (PCR) Positive A Crossmatch 07/04/19 07/04/19 07/04/19 23:45 Unknown Unknown WBC RBC Hgb Hct MCV MCH MCHC RDW Plt Count Lymph % (Auto) [place] % (Auto) Lymph # [place] # Baso # Seg Neutrophils % Seg Neuts % (Manual) Lymphocytes % (Manual) Monocytes % (Manual) Basophils % (Manual) Nucleated RBC % Seg Neutrophils # Seg Neutrophils # Man Lymphocytes # (Manual) Monocytes # (Manual) Eosinophils # (Manual) Basophils # (Manual) PT INR D-Dimer 759.77 H ABG pH ABG pO2 ABG HCO3 ABG O2 Saturation ABG Base Excess ABG Hemoglobin Oxyhemoglobin Sodium 122 L Potassium Chloride 93.0 L Carbon Dioxide 19 L BUN 27 H Creatinine 0.5 L Glucose POC Glucose Lactic Acid Calcium 8.3 L Magnesium Iron TIBC Ferritin 1301.0 H AST ALT Lactate Dehydrogenase Troponin T C-Reactive Protein Total Protein Albumin Prealbumin Cholesterol LDL Cholesterol Direct HDL Cholesterol Urine WBC (Auto) Vancomycin Trough Coronavirus (PCR) Crossmatch 07/04/19 07/05/19 07/05/19 Unknown 03:20 04:00 WBC RBC Hgb Hct MCV MCH MCHC RDW Plt Count Lymph % (Auto) [place] % (Auto) Lymph # [place] # Baso # Seg Neutrophils % Seg Neuts % (Manual) Lymphocytes % (Manual) Monocytes % (Manual) Basophils % (Manual) Nucleated RBC % Seg Neutrophils # Seg Neutrophils # Man Lymphocytes # (Manual) Monocytes # (Manual) Eosinophils # (Manual) Basophils # (Manual) PT INR D-Dimer ABG pH ABG pO2 60.6 L ABG HCO3 ABG O2 Saturation 93.5 L ABG Base Excess -2.4 L ABG Hemoglobin 6.9 L Oxyhemoglobin 92.0 L Sodium 125 L Potassium Chloride 92.6 L Carbon Dioxide 19 L BUN 24 H Creatinine 0.6 L Glucose POC Glucose Lactic Acid Calcium 8.2 L Magnesium 1.40 L Iron TIBC Ferritin AST ALT Lactate Dehydrogenase 242 H Troponin T C-Reactive Protein 16.70 H Total Protein Albumin Prealbumin Cholesterol LDL Cholesterol Direct HDL Cholesterol Urine WBC (Auto) Vancomycin Trough Coronavirus (PCR) Crossmatch 07/05/19 07/05/19 07/05/19 10:11 16:15 17:54 WBC 46.4 H* RBC 2.77 L Hgb 7.2 L Hct 21.9 L MCV 79 L MCH 26 L MCHC RDW 19.0 H Plt Count Lymph % (Auto) [place] % (Auto) Lymph # [place] # Baso # Seg Neutrophils % Seg Neuts % (Manual) 82.0 H Lymphocytes % (Manual) 1.0 L Monocytes % (Manual) Basophils % (Manual) Nucleated RBC % Seg Neutrophils # Seg Neutrophils # Man 38.0 H Lymphocytes # (Manual) 0.5 L Monocytes # (Manual) Eosinophils # (Manual) Basophils # (Manual) PT INR D-Dimer ABG pH ABG pO2 ABG HCO3 ABG O2 Saturation ABG Base Excess ABG Hemoglobin Oxyhemoglobin Sodium Potassium Chloride Carbon Dioxide BUN Creatinine Glucose POC Glucose 69 L Lactic Acid Calcium Magnesium Iron TIBC Ferritin AST ALT Lactate Dehydrogenase Troponin T C-Reactive Protein Total Protein Albumin Prealbumin Cholesterol LDL Cholesterol Direct HDL Cholesterol Urine WBC (Auto) Vancomycin Trough 23.2 H Coronavirus (PCR) Crossmatch 07/05/19 07/06/19 07/06/19 19:58 00:27 00:27 WBC RBC Hgb Hct MCV MCH MCHC RDW Plt Count Lymph % (Auto) [place] % (Auto) Lymph # [place] # Baso # Seg Neutrophils % Seg Neuts % (Manual) Lymphocytes % (Manual) Monocytes % (Manual) Basophils % (Manual) Nucleated RBC % Seg Neutrophils # Seg Neutrophils # Man Lymphocytes # (Manual) Monocytes # (Manual) Eosinophils # (Manual) Basophils # (Manual) PT INR D-Dimer 1333.22 H ABG pH ABG pO2 ABG HCO3 ABG O2 Saturation ABG Base Excess ABG Hemoglobin Oxyhemoglobin Sodium 127 L Potassium Chloride Carbon Dioxide BUN Creatinine Glucose POC Glucose Lactic Acid Calcium Magnesium Iron TIBC Ferritin 977.1 H AST ALT Lactate Dehydrogenase Troponin T C-Reactive Protein Total Protein Albumin Prealbumin Cholesterol LDL Cholesterol Direct HDL Cholesterol Urine WBC (Auto) Vancomycin Trough Coronavirus (PCR) Crossmatch 07/06/19 07/06/19 07/06/19 00:27 02:00 02:56 WBC RBC Hgb Hct MCV MCH MCHC RDW Plt Count Lymph % (Auto) [place] % (Auto) Lymph # [place] # Baso # Seg Neutrophils % Seg Neuts % (Manual) Lymphocytes % (Manual) Monocytes % (Manual) Basophils % (Manual) Nucleated RBC % Seg Neutrophils # Seg Neutrophils # Man Lymphocytes # (Manual) Monocytes # (Manual) Eosinophils # (Manual) Basophils # (Manual) PT INR D-Dimer ABG pH ABG pO2 70.3 L ABG HCO3 ABG O2 Saturation 94.8 L ABG Base Excess ABG Hemoglobin 8.0 L Oxyhemoglobin 93.2 L Sodium Potassium Chloride Carbon Dioxide BUN Creatinine Glucose POC Glucose 117 H Lactic Acid Calcium Magnesium Iron TIBC Ferritin AST ALT Lactate Dehydrogenase 236 H Troponin T C-Reactive Protein 22.90 H Total Protein Albumin Prealbumin Cholesterol LDL Cholesterol Direct HDL Cholesterol Urine WBC (Auto) Vancomycin Trough Coronavirus (PCR) Crossmatch 07/06/19 07/06/19 07/06/19 03:49 03:49 07:40 WBC 38.8 H RBC 2.51 L Hgb 6.7 L Hct 19.9 L* MCV 79 L MCH 27 L MCHC RDW 19.2 H Plt Count Lymph % (Auto) [place] % (Auto) Lymph # [place] # Baso # Seg Neutrophils % Seg Neuts % (Manual) 90.5 H Lymphocytes % (Manual) 1.0 L Monocytes % (Manual) Basophils % (Manual) Nucleated RBC % Seg Neutrophils # Seg Neutrophils # Man 35.1 H Lymphocytes # (Manual) 0.4 L Monocytes # (Manual) Eosinophils # (Manual) Basophils # (Manual) PT INR D-Dimer ABG pH ABG pO2 ABG HCO3 ABG O2 Saturation ABG Base Excess ABG Hemoglobin Oxyhemoglobin Sodium 131 L Potassium Chloride 96.9 L Carbon Dioxide 18 L BUN 23 H Creatinine 0.5 L Glucose POC Glucose Lactic Acid Calcium 8.0 L Magnesium Iron TIBC Ferritin AST ALT Lactate Dehydrogenase Troponin T C-Reactive Protein Total Protein Albumin Prealbumin Cholesterol LDL Cholesterol Direct HDL Cholesterol Urine WBC (Auto) Vancomycin Trough Coronavirus (PCR) Crossmatch See Detail 07/06/19 07/06/19 07/06/19 12:38 14:39 20:00 WBC RBC Hgb Hct MCV MCH MCHC RDW Plt Count Lymph % (Auto) [place] % (Auto) Lymph # [place] # Baso # Seg Neutrophils % Seg Neuts % (Manual) Lymphocytes % (Manual) Monocytes % (Manual) Basophils % (Manual) Nucleated RBC % Seg Neutrophils # Seg Neutrophils # Man Lymphocytes # (Manual) Monocytes # (Manual) Eosinophils # (Manual) Basophils # (Manual) PT INR D-Dimer ABG pH ABG pO2 ABG HCO3 ABG O2 Saturation ABG Base Excess ABG Hemoglobin Oxyhemoglobin Sodium Potassium Chloride Carbon Dioxide BUN Creatinine Glucose POC Glucose 112 H 111 H 140 H Lactic Acid Calcium Magnesium Iron TIBC Ferritin AST ALT Lactate Dehydrogenase Troponin T C-Reactive Protein Total Protein Albumin Prealbumin Cholesterol LDL Cholesterol Direct HDL Cholesterol Urine WBC (Auto) Vancomycin Trough Coronavirus (PCR) Crossmatch 07/06/19 07/06/19 07/07/19 22:43 22:56 02:20 WBC RBC Hgb 7.9 L Hct 23.1 L MCV MCH MCHC RDW Plt Count Lymph % (Auto) [place] % (Auto) Lymph # [place] # Baso # Seg Neutrophils % Seg Neuts % (Manual) Lymphocytes % (Manual) Monocytes % (Manual) Basophils % (Manual) Nucleated RBC % Seg Neutrophils # Seg Neutrophils # Man Lymphocytes # (Manual) Monocytes # (Manual) Eosinophils # (Manual) Basophils # (Manual) PT INR D-Dimer ABG pH ABG pO2 ABG HCO3 ABG O2 Saturation ABG Base Excess ABG Hemoglobin Oxyhemoglobin Sodium Potassium Chloride Carbon Dioxide BUN Creatinine Glucose POC Glucose 122 H 149 H Lactic Acid Calcium Magnesium Iron TIBC Ferritin AST ALT Lactate Dehydrogenase Troponin T C-Reactive Protein Total Protein Albumin Prealbumin Cholesterol LDL Cholesterol Direct HDL Cholesterol Urine WBC (Auto) Vancomycin Trough Coronavirus (PCR) Crossmatch 07/07/19 07/07/19 07/07/19 04:35 05:27 05:34 WBC 23.1 H RBC 3.00 L Hgb 8.1 L Hct 24.2 L MCV 81 L MCH 27 L MCHC RDW 20.6 H Plt Count Lymph % (Auto) [place] % (Auto) Lymph # [place] # Baso # Seg Neutrophils % Seg Neuts % (Manual) 90.0 H Lymphocytes % (Manual) 2.0 L Monocytes % (Manual) Basophils % (Manual) Nucleated RBC % Seg Neutrophils # Seg Neutrophils # Man 20.8 H Lymphocytes # (Manual) 0.5 L Monocytes # (Manual) Eosinophils # (Manual) Basophils # (Manual) PT INR D-Dimer ABG pH ABG pO2 65.8 L ABG HCO3 ABG O2 Saturation 92.2 L ABG Base Excess ABG Hemoglobin 8.3 L Oxyhemoglobin 90.6 L Sodium Potassium Chloride Carbon Dioxide BUN Creatinine Glucose POC Glucose 132 H Lactic Acid Calcium Magnesium Iron TIBC Ferritin AST ALT Lactate Dehydrogenase Troponin T C-Reactive Protein Total Protein Albumin Prealbumin Cholesterol LDL Cholesterol Direct HDL Cholesterol Urine WBC (Auto) Vancomycin Trough Coronavirus (PCR) Crossmatch 07/07/19 07/07/19 07/07/19 05:34 11:50 15:58 WBC RBC Hgb 8.1 L Hct 24.2 L MCV MCH MCHC RDW Plt Count Lymph % (Auto) [place] % (Auto) Lymph # [place] # Baso # Seg Neutrophils % Seg Neuts % (Manual) Lymphocytes % (Manual) Monocytes % (Manual) Basophils % (Manual) Nucleated RBC % Seg Neutrophils # Seg Neutrophils # Man Lymphocytes # (Manual) Monocytes # (Manual) Eosinophils # (Manual) Basophils # (Manual) PT INR D-Dimer ABG pH ABG pO2 ABG HCO3 ABG O2 Saturation ABG Base Excess ABG Hemoglobin Oxyhemoglobin Sodium 135 L Potassium 3.3 L Chloride Carbon Dioxide 20 L BUN 27 H Creatinine 0.6 L Glucose 121 H POC Glucose 123 H Lactic Acid Calcium 8.0 L Magnesium Iron TIBC Ferritin AST ALT Lactate Dehydrogenase Troponin T C-Reactive Protein Total Protein Albumin Prealbumin Cholesterol LDL Cholesterol Direct HDL Cholesterol Urine WBC (Auto) Vancomycin Trough Coronavirus (PCR) Crossmatch 07/07/19 07/07/19 07/07/19 17:42 22:00 23:53 WBC RBC Hgb 8.0 L Hct 23.4 L MCV MCH MCHC RDW Plt Count Lymph % (Auto) [place] % (Auto) Lymph # [place] # Baso # Seg Neutrophils % Seg Neuts % (Manual) Lymphocytes % (Manual) Monocytes % (Manual) Basophils % (Manual) Nucleated RBC % Seg Neutrophils # Seg Neutrophils # Man Lymphocytes # (Manual) Monocytes # (Manual) Eosinophils # (Manual) Basophils # (Manual) PT INR D-Dimer ABG pH ABG pO2 ABG HCO3 ABG O2 Saturation ABG Base Excess ABG Hemoglobin Oxyhemoglobin Sodium Potassium Chloride Carbon Dioxide BUN Creatinine Glucose POC Glucose 107 H 117 H Lactic Acid Calcium Magnesium Iron TIBC Ferritin AST ALT Lactate Dehydrogenase Troponin T C-Reactive Protein Total Protein Albumin Prealbumin Cholesterol LDL Cholesterol Direct HDL Cholesterol Urine WBC (Auto) Vancomycin Trough Coronavirus (PCR) Crossmatch 07/08/19 07/08/19 07/08/19 00:45 00:45 00:45 WBC RBC Hgb Hct MCV MCH MCHC RDW Plt Count Lymph % (Auto) [place] % (Auto) Lymph # [place] # Baso # Seg Neutrophils % Seg Neuts % (Manual) Lymphocytes % (Manual) Monocytes % (Manual) Basophils % (Manual) Nucleated RBC % Seg Neutrophils # Seg Neutrophils # Man Lymphocytes # (Manual) Monocytes # (Manual) Eosinophils # (Manual) Basophils # (Manual) PT INR D-Dimer 1142.18 H ABG pH ABG pO2 ABG HCO3 ABG O2 Saturation ABG Base Excess ABG Hemoglobin Oxyhemoglobin Sodium Potassium Chloride Carbon Dioxide BUN Creatinine Glucose POC Glucose Lactic Acid Calcium Magnesium Iron TIBC Ferritin 839.0 H AST ALT Lactate Dehydrogenase 253 H Troponin T C-Reactive Protein 18.90 H Total Protein Albumin Prealbumin Cholesterol LDL Cholesterol Direct HDL Cholesterol Urine WBC (Auto) Vancomycin Trough Coronavirus (PCR) Crossmatch 07/08/19 07/08/19 07/08/19 04:30 05:11 12:02 WBC RBC Hgb Hct MCV MCH MCHC RDW Plt Count Lymph % (Auto) [place] % (Auto) Lymph # [place] # Baso # Seg Neutrophils % Seg Neuts % (Manual) Lymphocytes % (Manual) Monocytes % (Manual) Basophils % (Manual) Nucleated RBC % Seg Neutrophils # Seg Neutrophils # Man Lymphocytes # (Manual) Monocytes # (Manual) Eosinophils # (Manual) Basophils # (Manual) PT INR D-Dimer ABG pH ABG pO2 66.0 L ABG HCO3 ABG O2 Saturation 92.3 L ABG Base Excess ABG Hemoglobin 7.7 L Oxyhemoglobin 90.7 L Sodium Potassium Chloride Carbon Dioxide BUN Creatinine Glucose POC Glucose 108 H 153 H Lactic Acid Calcium Magnesium Iron TIBC Ferritin AST ALT Lactate Dehydrogenase Troponin T C-Reactive Protein Total Protein Albumin Prealbumin Cholesterol LDL Cholesterol Direct HDL Cholesterol Urine WBC (Auto) Vancomycin Trough Coronavirus (PCR) Crossmatch 07/08/19 07/08/19 07/08/19 16:15 18:22 23:35 WBC RBC Hgb Hct MCV MCH MCHC RDW Plt Count Lymph % (Auto) [place] % (Auto) Lymph # [place] # Baso # Seg Neutrophils % Seg Neuts % (Manual) Lymphocytes % (Manual) Monocytes % (Manual) Basophils % (Manual) Nucleated RBC % Seg Neutrophils # Seg Neutrophils # Man Lymphocytes # (Manual) Monocytes # (Manual) Eosinophils # (Manual) Basophils # (Manual) PT INR D-Dimer ABG pH ABG pO2 ABG HCO3 ABG O2 Saturation ABG Base Excess ABG Hemoglobin Oxyhemoglobin Sodium 134 L Potassium 3.3 L Chloride Carbon Dioxide 21 L BUN 27 H Creatinine 0.6 L Glucose 146 H POC Glucose 134 H 133 H Lactic Acid Calcium Magnesium Iron TIBC Ferritin AST ALT Lactate Dehydrogenase Troponin T C-Reactive Protein Total Protein Albumin Prealbumin Cholesterol LDL Cholesterol Direct HDL Cholesterol Urine WBC (Auto) Vancomycin Trough Coronavirus (PCR) Crossmatch 07/09/19 07/09/19 07/09/19 04:30 04:30 05:00 WBC 18.9 H RBC 2.77 L Hgb 7.4 L Hct 22.8 L MCV 82 L MCH 27 L MCHC RDW 20.9 H Plt Count 130 L Lymph % (Auto) [place] % (Auto) Lymph # [place] # Baso # Seg Neutrophils % Seg Neuts % (Manual) 84.0 H Lymphocytes % (Manual) 0 L Monocytes % (Manual) Basophils % (Manual) Nucleated RBC % Seg Neutrophils # Seg Neutrophils # Man 15.9 H Lymphocytes # (Manual) 0.0 L Monocytes # (Manual) Eosinophils # (Manual) Basophils # (Manual) PT INR D-Dimer ABG pH ABG pO2 ABG HCO3 ABG O2 Saturation ABG Base Excess ABG Hemoglobin Oxyhemoglobin Sodium Potassium 3.1 L Chloride Carbon Dioxide BUN 26 H Creatinine 0.5 L Glucose 125 H POC Glucose 155 H Lactic Acid Calcium Magnesium Iron TIBC Ferritin AST ALT Lactate Dehydrogenase Troponin T C-Reactive Protein Total Protein Albumin Prealbumin Cholesterol LDL Cholesterol Direct HDL Cholesterol Urine WBC (Auto) Vancomycin Trough Coronavirus (PCR) Crossmatch 07/09/19 07/09/19 07/09/19 05:55 12:22 17:50 WBC RBC Hgb Hct MCV MCH MCHC RDW Plt Count Lymph % (Auto) [place] % (Auto) Lymph # [place] # Baso # Seg Neutrophils % Seg Neuts % (Manual) Lymphocytes % (Manual) Monocytes % (Manual) Basophils % (Manual) Nucleated RBC % Seg Neutrophils # Seg Neutrophils # Man Lymphocytes # (Manual) Monocytes # (Manual) Eosinophils # (Manual) Basophils # (Manual) PT INR D-Dimer ABG pH ABG pO2 62.8 L ABG HCO3 ABG O2 Saturation ABG Base Excess ABG Hemoglobin 6.1 L Oxyhemoglobin 93.9 L Sodium Potassium Chloride Carbon Dioxide BUN Creatinine Glucose POC Glucose 115 H 133 H Lactic Acid Calcium Magnesium Iron TIBC Ferritin AST ALT Lactate Dehydrogenase Troponin T C-Reactive Protein Total Protein Albumin Prealbumin Cholesterol LDL Cholesterol Direct HDL Cholesterol Urine WBC (Auto) Vancomycin Trough Coronavirus (PCR) Crossmatch 07/10/19 07/10/19 07/10/19 00:38 04:00 04:00 WBC RBC Hgb Hct MCV MCH MCHC RDW Plt Count Lymph % (Auto) [place] % (Auto) Lymph # [place] # Baso # Seg Neutrophils % Seg Neuts % (Manual) Lymphocytes % (Manual) Monocytes % (Manual) Basophils % (Manual) Nucleated RBC % Seg Neutrophils # Seg Neutrophils # Man Lymphocytes # (Manual) Monocytes # (Manual) Eosinophils # (Manual) Basophils # (Manual) PT INR D-Dimer ABG pH ABG pO2 ABG HCO3 ABG O2 Saturation ABG Base Excess ABG Hemoglobin Oxyhemoglobin Sodium Potassium Chloride 107.9 H Carbon Dioxide BUN 26 H Creatinine 0.4 L Glucose 137 H POC Glucose 122 H Lactic Acid Calcium Magnesium 1.50 L Iron TIBC Ferritin AST ALT Lactate Dehydrogenase 277 H Troponin T C-Reactive Protein 15.10 H Total Protein Albumin Prealbumin Cholesterol LDL Cholesterol Direct HDL Cholesterol Urine WBC (Auto) Vancomycin Trough Coronavirus (PCR) Crossmatch 07/10/19 07/10/19 07/10/19 04:07 05:21 17:25 WBC RBC Hgb Hct MCV MCH MCHC RDW Plt Count Lymph % (Auto) [place] % (Auto) Lymph # [place] # Baso # Seg Neutrophils % Seg Neuts % (Manual) Lymphocytes % (Manual) Monocytes % (Manual) Basophils % (Manual) Nucleated RBC % Seg Neutrophils # Seg Neutrophils # Man Lymphocytes # (Manual) Monocytes # (Manual) Eosinophils # (Manual) Basophils # (Manual) PT INR D-Dimer ABG pH ABG pO2 65.6 L ABG HCO3 26.3 H ABG O2 Saturation ABG Base Excess ABG Hemoglobin 6.7 L Oxyhemoglobin Sodium Potassium Chloride Carbon Dioxide BUN Creatinine Glucose POC Glucose 144 H 113 H Lactic Acid Calcium Magnesium Iron TIBC Ferritin AST ALT Lactate Dehydrogenase Troponin T C-Reactive Protein Total Protein Albumin Prealbumin Cholesterol LDL Cholesterol Direct HDL Cholesterol Urine WBC (Auto) Vancomycin Trough Coronavirus (PCR) Crossmatch 07/11/19 07/11/19 07/11/19 00:07 05:14 05:25 WBC RBC Hgb Hct MCV MCH MCHC RDW Plt Count Lymph % (Auto) [place] % (Auto) Lymph # [place] # Baso # Seg Neutrophils % Seg Neuts % (Manual) Lymphocytes % (Manual) Monocytes % (Manual) Basophils % (Manual) Nucleated RBC % Seg Neutrophils # Seg Neutrophils # Man Lymphocytes # (Manual) Monocytes # (Manual) Eosinophils # (Manual) Basophils # (Manual) PT INR D-Dimer ABG pH ABG pO2 ABG HCO3 ABG O2 Saturation ABG Base Excess ABG Hemoglobin 5.8 L Oxyhemoglobin Sodium Potassium Chloride 108.0 H Carbon Dioxide BUN 26 H Creatinine 0.4 L Glucose 110 H POC Glucose 121 H Lactic Acid Calcium Magnesium Iron TIBC Ferritin AST ALT Lactate Dehydrogenase Troponin T C-Reactive Protein Total Protein Albumin Prealbumin Cholesterol LDL Cholesterol Direct HDL Cholesterol Urine WBC (Auto) Vancomycin Trough Coronavirus (PCR) Crossmatch 07/11/19 07/11/19 07/11/19 12:27 18:00 23:42 WBC RBC Hgb Hct MCV MCH MCHC RDW Plt Count Lymph % (Auto) [place] % (Auto) Lymph # [place] # Baso # Seg Neutrophils % Seg Neuts % (Manual) Lymphocytes % (Manual) Monocytes % (Manual) Basophils % (Manual) Nucleated RBC % Seg Neutrophils # Seg Neutrophils # Man Lymphocytes # (Manual) Monocytes # (Manual) Eosinophils # (Manual) Basophils # (Manual) PT INR D-Dimer ABG pH ABG pO2 ABG HCO3 ABG O2 Saturation ABG Base Excess ABG Hemoglobin Oxyhemoglobin Sodium Potassium Chloride Carbon Dioxide BUN Creatinine Glucose POC Glucose 158 H 141 H 142 H Lactic Acid Calcium Magnesium Iron TIBC Ferritin AST ALT Lactate Dehydrogenase Troponin T C-Reactive Protein Total Protein Albumin Prealbumin Cholesterol LDL Cholesterol Direct HDL Cholesterol Urine WBC (Auto) Vancomycin Trough Coronavirus (PCR) Crossmatch 07/12/19 07/12/19 07/12/19 04:46 04:46 05:23 WBC 23.6 H RBC 2.51 L Hgb 6.7 L Hct 20.8 L MCV 83 L MCH 27 L MCHC RDW 20.3 H Plt Count Lymph % (Auto) [place] % (Auto) Lymph # [place] # Baso # Seg Neutrophils % Seg Neuts % (Manual) 94.0 H Lymphocytes % (Manual) 4.0 L Monocytes % (Manual) Basophils % (Manual) Nucleated RBC % Seg Neutrophils # Seg Neutrophils # Man 22.2 H Lymphocytes # (Manual) 0.9 L Monocytes # (Manual) Eosinophils # (Manual) Basophils # (Manual) PT INR D-Dimer ABG pH ABG pO2 ABG HCO3 ABG O2 Saturation ABG Base Excess ABG Hemoglobin Oxyhemoglobin Sodium Potassium Chloride 107.1 H Carbon Dioxide BUN 25 H Creatinine 0.4 L Glucose 122 H POC Glucose 118 H Lactic Acid Calcium Magnesium Iron TIBC Ferritin AST ALT Lactate Dehydrogenase Troponin T C-Reactive Protein Total Protein Albumin Prealbumin Cholesterol LDL Cholesterol Direct HDL Cholesterol Urine WBC (Auto) Vancomycin Trough Coronavirus (PCR) Crossmatch 07/12/19 07/12/19 07/12/19 08:49 11:36 18:15 WBC RBC Hgb Hct MCV MCH MCHC RDW Plt Count Lymph % (Auto) [place] % (Auto) Lymph # [place] # Baso # Seg Neutrophils % Seg Neuts % (Manual) Lymphocytes % (Manual) Monocytes % (Manual) Basophils % (Manual) Nucleated RBC % Seg Neutrophils # Seg Neutrophils # Man Lymphocytes # (Manual) Monocytes # (Manual) Eosinophils # (Manual) Basophils # (Manual) PT INR D-Dimer ABG pH ABG pO2 ABG HCO3 ABG O2 Saturation ABG Base Excess ABG Hemoglobin Oxyhemoglobin Sodium Potassium Chloride Carbon Dioxide BUN Creatinine Glucose POC Glucose 124 H 110 H Lactic Acid Calcium Magnesium Iron TIBC Ferritin AST ALT Lactate Dehydrogenase Troponin T C-Reactive Protein Total Protein Albumin Prealbumin Cholesterol LDL Cholesterol Direct HDL Cholesterol Urine WBC (Auto) Vancomycin Trough Coronavirus (PCR) Crossmatch See Detail 07/12/19 07/13/19 07/13/19 23:16 05:26 06:50 WBC 23.9 H RBC 2.58 L Hgb 6.9 L Hct 21.5 L MCV 83 L MCH 27 L MCHC RDW 19.0 H Plt Count Lymph % (Auto) [place] % (Auto) Lymph # [place] # Baso # Seg Neutrophils % Seg Neuts % (Manual) 96.0 H Lymphocytes % (Manual) 3.0 L Monocytes % (Manual) Basophils % (Manual) Nucleated RBC % Seg Neutrophils # Seg Neutrophils # Man 22.9 H Lymphocytes # (Manual) 0.7 L Monocytes # (Manual) Eosinophils # (Manual) Basophils # (Manual) PT INR D-Dimer ABG pH ABG pO2 ABG HCO3 ABG O2 Saturation ABG Base Excess ABG Hemoglobin Oxyhemoglobin Sodium Potassium Chloride Carbon Dioxide BUN Creatinine Glucose POC Glucose 108 H 126 H Lactic Acid Calcium Magnesium Iron TIBC Ferritin AST ALT Lactate Dehydrogenase Troponin T C-Reactive Protein Total Protein Albumin Prealbumin Cholesterol LDL Cholesterol Direct HDL Cholesterol Urine WBC (Auto) Vancomycin Trough Coronavirus (PCR) Crossmatch 07/13/19 07/13/19 07/13/19 06:50 12:38 18:05 WBC RBC Hgb Hct MCV MCH MCHC RDW Plt Count Lymph % (Auto) [place] % (Auto) Lymph # [place] # Baso # Seg Neutrophils % Seg Neuts % (Manual) Lymphocytes % (Manual) Monocytes % (Manual) Basophils % (Manual) Nucleated RBC % Seg Neutrophils # Seg Neutrophils # Man Lymphocytes # (Manual) Monocytes # (Manual) Eosinophils # (Manual) Basophils # (Manual) PT INR D-Dimer ABG pH ABG pO2 ABG HCO3 ABG O2 Saturation ABG Base Excess ABG Hemoglobin Oxyhemoglobin Sodium Potassium Chloride Carbon Dioxide BUN 33 H Creatinine 0.5 L Glucose 136 H POC Glucose 164 H 145 H Lactic Acid Calcium Magnesium Iron TIBC Ferritin AST ALT Lactate Dehydrogenase Troponin T C-Reactive Protein Total Protein Albumin Prealbumin Cholesterol LDL Cholesterol Direct HDL Cholesterol Urine WBC (Auto) Vancomycin Trough Coronavirus (PCR) Crossmatch 07/13/19 07/14/19 07/14/19 18:30 00:21 04:40 WBC 22.9 H RBC 2.45 L Hgb 6.6 L Hct 21.1 L MCV MCH 27 L MCHC 31 L RDW 19.2 H Plt Count Lymph % (Auto) [place] % (Auto) Lymph # [place] # Baso # Seg Neutrophils % Seg Neuts % (Manual) 91.0 H Lymphocytes % (Manual) 7.0 L Monocytes % (Manual) Basophils % (Manual) Nucleated RBC % Seg Neutrophils # Seg Neutrophils # Man 20.8 H Lymphocytes # (Manual) Monocytes # (Manual) Eosinophils # (Manual) Basophils # (Manual) PT INR D-Dimer ABG pH ABG pO2 58.1 L ABG HCO3 ABG O2 Saturation 88.7 L ABG Base Excess ABG Hemoglobin 7.8 L Oxyhemoglobin 86.8 L Sodium Potassium Chloride Carbon Dioxide BUN Creatinine Glucose POC Glucose 118 H Lactic Acid Calcium Magnesium Iron TIBC Ferritin AST ALT Lactate Dehydrogenase Troponin T C-Reactive Protein Total Protein Albumin Prealbumin Cholesterol LDL Cholesterol Direct HDL Cholesterol Urine WBC (Auto) Vancomycin Trough Coronavirus (PCR) Crossmatch 07/14/19 07/14/19 07/14/19 04:40 05:38 05:45 WBC RBC Hgb Hct MCV MCH MCHC RDW Plt Count Lymph % (Auto) [place] % (Auto) Lymph # [place] # Baso # Seg Neutrophils % Seg Neuts % (Manual) Lymphocytes % (Manual) Monocytes % (Manual) Basophils % (Manual) Nucleated RBC % Seg Neutrophils # Seg Neutrophils # Man Lymphocytes # (Manual) Monocytes # (Manual) Eosinophils # (Manual) Basophils # (Manual) PT INR D-Dimer ABG pH 7.230 L ABG pO2 72.1 L ABG HCO3 ABG O2 Saturation 89.3 L ABG Base Excess -2.7 L ABG Hemoglobin 6.7 L Oxyhemoglobin 87.7 L Sodium Potassium Chloride 107.4 H Carbon Dioxide BUN 45 H Creatinine Glucose 101 H POC Glucose 154 H Lactic Acid Calcium Magnesium Iron TIBC Ferritin AST ALT Lactate Dehydrogenase Troponin T C-Reactive Protein Total Protein Albumin Prealbumin Cholesterol LDL Cholesterol Direct HDL Cholesterol Urine WBC (Auto) Vancomycin Trough Coronavirus (PCR) Crossmatch 07/14/19 07/14/19 07/14/19 12:25 18:20 19:01 WBC 22.4 H RBC 2.70 L Hgb 7.5 L Hct 23.3 L MCV MCH MCHC RDW 19.5 H Plt Count Lymph % (Auto) [place] % (Auto) Lymph # [place] # Baso # Seg Neutrophils % Seg Neuts % (Manual) Lymphocytes % (Manual) Monocytes % (Manual) Basophils % (Manual) Nucleated RBC % Seg Neutrophils # Seg Neutrophils # Man Lymphocytes # (Manual) Monocytes # (Manual) Eosinophils # (Manual) Basophils # (Manual) PT INR D-Dimer ABG pH ABG pO2 ABG HCO3 ABG O2 Saturation ABG Base Excess ABG Hemoglobin Oxyhemoglobin Sodium Potassium Chloride Carbon Dioxide BUN Creatinine Glucose POC Glucose 136 H 131 H Lactic Acid Calcium Magnesium Iron TIBC Ferritin AST ALT Lactate Dehydrogenase Troponin T C-Reactive Protein Total Protein Albumin Prealbumin Cholesterol LDL Cholesterol Direct HDL Cholesterol Urine WBC (Auto) Vancomycin Trough Coronavirus (PCR) Crossmatch 07/15/19 07/15/19 07/15/19 00:17 04:35 05:18 WBC 20.6 H RBC 2.41 L Hgb 6.8 L Hct 20.7 L MCV MCH MCHC RDW 20.2 H Plt Count Lymph % (Auto) [place] % (Auto) Lymph # [place] # Baso # Seg Neutrophils % Seg Neuts % (Manual) 92.0 H Lymphocytes % (Manual) 5.0 L Monocytes % (Manual) Basophils % (Manual) Nucleated RBC % Seg Neutrophils # Seg Neutrophils # Man 19.0 H Lymphocytes # (Manual) 1.0 L Monocytes # (Manual) Eosinophils # (Manual) Basophils # (Manual) PT INR D-Dimer ABG pH 7.342 L ABG pO2 ABG HCO3 ABG O2 Saturation ABG Base Excess -3.1 L ABG Hemoglobin 7.2 L Oxyhemoglobin 94.9 L Sodium Potassium Chloride Carbon Dioxide BUN Creatinine Glucose POC Glucose 116 H Lactic Acid Calcium Magnesium Iron TIBC Ferritin AST ALT Lactate Dehydrogenase Troponin T C-Reactive Protein Total Protein Albumin Prealbumin Cholesterol LDL Cholesterol Direct HDL Cholesterol Urine WBC (Auto) Vancomycin Trough Coronavirus (PCR) Crossmatch 07/15/19 07/15/19 07/15/19 05:18 05:57 11:28 WBC RBC Hgb Hct MCV MCH MCHC RDW Plt Count Lymph % (Auto) [place] % (Auto) Lymph # [place] # Baso # Seg Neutrophils % Seg Neuts % (Manual) Lymphocytes % (Manual) Monocytes % (Manual) Basophils % (Manual) Nucleated RBC % Seg Neutrophils # Seg Neutrophils # Man Lymphocytes # (Manual) Monocytes # (Manual) Eosinophils # (Manual) Basophils # (Manual) PT INR D-Dimer ABG pH ABG pO2 ABG HCO3 ABG O2 Saturation ABG Base Excess ABG Hemoglobin Oxyhemoglobin Sodium Potassium Chloride Carbon Dioxide 20 L BUN 59 H Creatinine Glucose 140 H POC Glucose 139 H 117 H Lactic Acid Calcium Magnesium Iron TIBC Ferritin AST ALT Lactate Dehydrogenase Troponin T C-Reactive Protein Total Protein Albumin Prealbumin Cholesterol LDL Cholesterol Direct HDL Cholesterol Urine WBC (Auto) Vancomycin Trough Coronavirus (PCR) Crossmatch 07/15/19 07/16/19 07/16/19 18:13 00:06 03:43 WBC RBC Hgb Hct MCV MCH MCHC RDW Plt Count Lymph % (Auto) [place] % (Auto) Lymph # [place] # Baso # Seg Neutrophils % Seg Neuts % (Manual) Lymphocytes % (Manual) Monocytes % (Manual) Basophils % (Manual) Nucleated RBC % Seg Neutrophils # Seg Neutrophils # Man Lymphocytes # (Manual) Monocytes # (Manual) Eosinophils # (Manual) Basophils # (Manual) PT INR D-Dimer ABG pH 7.344 L ABG pO2 68.6 L ABG HCO3 ABG O2 Saturation ABG Base Excess -3.5 L ABG Hemoglobin 6.1 L Oxyhemoglobin 93.3 L Sodium Potassium Chloride Carbon Dioxide BUN Creatinine Glucose POC Glucose 114 H 119 H Lactic Acid Calcium Magnesium Iron TIBC Ferritin AST ALT Lactate Dehydrogenase Troponin T C-Reactive Protein Total Protein Albumin Prealbumin Cholesterol LDL Cholesterol Direct HDL Cholesterol Urine WBC (Auto) Vancomycin Trough Coronavirus (PCR) Crossmatch 07/16/19 07/16/19 07/16/19 04:41 04:41 12:09 WBC 19.6 H RBC 2.81 L Hgb 7.7 L Hct 24.0 L MCV MCH 27 L MCHC RDW 19.4 H Plt Count 514 H Lymph % (Auto) 6.7 L [place] % (Auto) Lymph # [place] # 1.0 H Baso # Seg Neutrophils % 87.0 H Seg Neuts % (Manual) Lymphocytes % (Manual) Monocytes % (Manual) Basophils % (Manual) Nucleated RBC % Seg Neutrophils # 17.0 H Seg Neutrophils # Man Lymphocytes # (Manual) Monocytes # (Manual) Eosinophils # (Manual) Basophils # (Manual) PT INR D-Dimer ABG pH ABG pO2 ABG HCO3 ABG O2 Saturation ABG Base Excess ABG Hemoglobin Oxyhemoglobin Sodium Potassium 5.9 H Chloride Carbon Dioxide 21 L BUN 73 H Creatinine 2.0 H Glucose POC Glucose 141 H Lactic Acid Calcium Magnesium Iron TIBC Ferritin AST ALT Lactate Dehydrogenase Troponin T C-Reactive Protein Total Protein Albumin Prealbumin Cholesterol LDL Cholesterol Direct HDL Cholesterol Urine WBC (Auto) Vancomycin Trough Coronavirus (PCR) Crossmatch 07/16/19 07/16/19 07/17/19 16:19 17:45 00:16 WBC RBC Hgb Hct MCV MCH MCHC RDW Plt Count Lymph % (Auto) [place] % (Auto) Lymph # [place] # Baso # Seg Neutrophils % Seg Neuts % (Manual) Lymphocytes % (Manual) Monocytes % (Manual) Basophils % (Manual) Nucleated RBC % Seg Neutrophils # Seg Neutrophils # Man Lymphocytes # (Manual) Monocytes # (Manual) Eosinophils # (Manual) Basophils # (Manual) PT INR D-Dimer ABG pH ABG pO2 ABG HCO3 ABG O2 Saturation ABG Base Excess ABG Hemoglobin Oxyhemoglobin Sodium Potassium 5.1 H Chloride Carbon Dioxide 20 L BUN 72 H Creatinine 1.7 H Glucose 128 H POC Glucose 181 H 164 H Lactic Acid Calcium Magnesium Iron TIBC Ferritin AST ALT Lactate Dehydrogenase Troponin T C-Reactive Protein Total Protein Albumin Prealbumin Cholesterol LDL Cholesterol Direct HDL Cholesterol Urine WBC (Auto) Vancomycin Trough Coronavirus (PCR) Crossmatch 07/17/19 07/17/19 07/17/19 04:20 04:39 04:39 WBC 16.1 H RBC 2.92 L Hgb 8.0 L Hct 25.5 L MCV MCH MCHC 31 L RDW 19.7 H Plt Count 564 H Lymph % (Auto) 3.6 L [place] % (Auto) 7.4 H Lymph # 0.6 L [place] # 1.2 H Baso # Seg Neutrophils % 87.5 H Seg Neuts % (Manual) Lymphocytes % (Manual) Monocytes % (Manual) Basophils % (Manual) Nucleated RBC % Seg Neutrophils # 14.1 H Seg Neutrophils # Man Lymphocytes # (Manual) Monocytes # (Manual) Eosinophils # (Manual) Basophils # (Manual) PT INR D-Dimer ABG pH 7.231 L ABG pO2 95.3 H ABG HCO3 ABG O2 Saturation ABG Base Excess -5.0 L ABG Hemoglobin 7.9 L Oxyhemoglobin 94.8 L Sodium Potassium Chloride 107.8 H Carbon Dioxide 21 L BUN 68 H Creatinine Glucose POC Glucose Lactic Acid Calcium Magnesium Iron TIBC Ferritin AST ALT Lactate Dehydrogenase Troponin T C-Reactive Protein Total Protein Albumin Prealbumin Cholesterol LDL Cholesterol Direct HDL Cholesterol Urine WBC (Auto) Vancomycin Trough Coronavirus (PCR) Crossmatch 07/17/19 07/17/19 07/17/19 05:28 12:11 18:48 WBC RBC Hgb Hct MCV MCH MCHC RDW Plt Count Lymph % (Auto) [place] % (Auto) Lymph # [place] # Baso # Seg Neutrophils % Seg Neuts % (Manual) Lymphocytes % (Manual) Monocytes % (Manual) Basophils % (Manual) Nucleated RBC % Seg Neutrophils # Seg Neutrophils # Man Lymphocytes # (Manual) Monocytes # (Manual) Eosinophils # (Manual) Basophils # (Manual) PT INR D-Dimer ABG pH ABG pO2 ABG HCO3 ABG O2 Saturation ABG Base Excess ABG Hemoglobin Oxyhemoglobin Sodium Potassium Chloride Carbon Dioxide BUN Creatinine Glucose POC Glucose 121 H 125 H 174 H Lactic Acid Calcium Magnesium Iron TIBC Ferritin AST ALT Lactate Dehydrogenase Troponin T C-Reactive Protein Total Protein Albumin Prealbumin Cholesterol LDL Cholesterol Direct HDL Cholesterol Urine WBC (Auto) Vancomycin Trough Coronavirus (PCR) Crossmatch 07/17/19 07/17/19 07/18/19 19:55 23:57 02:30 WBC RBC Hgb Hct MCV MCH MCHC RDW Plt Count Lymph % (Auto) [place] % (Auto) Lymph # [place] # Baso # Seg Neutrophils % Seg Neuts % (Manual) Lymphocytes % (Manual) Monocytes % (Manual) Basophils % (Manual) Nucleated RBC % Seg Neutrophils # Seg Neutrophils # Man Lymphocytes # (Manual) Monocytes # (Manual) Eosinophils # (Manual) Basophils # (Manual) PT INR D-Dimer ABG pH 7.344 L 7.294 L ABG pO2 78.5 L 119.2 H ABG HCO3 ABG O2 Saturation ABG Base Excess -3.3 L -2.6 L ABG Hemoglobin 8.6 L 8.1 L Oxyhemoglobin 94.8 L Sodium Potassium Chloride Carbon Dioxide BUN Creatinine Glucose POC Glucose 148 H Lactic Acid Calcium Magnesium Iron TIBC Ferritin AST ALT Lactate Dehydrogenase Troponin T C-Reactive Protein Total Protein Albumin Prealbumin Cholesterol LDL Cholesterol Direct HDL Cholesterol Urine WBC (Auto) Vancomycin Trough Coronavirus (PCR) Crossmatch 07/18/19 07/18/19 07/18/19 04:49 05:22 05:22 WBC 15.9 H RBC 3.00 L Hgb 8.1 L Hct 26.0 L MCV MCH 27 L MCHC 31 L RDW 19.4 H Plt Count 733 H Lymph % (Auto) 6.3 L [place] % (Auto) 7.4 H Lymph # 1.0 L [place] # 1.2 H Baso # 0.2 H Seg Neutrophils % 83.8 H Seg Neuts % (Manual) Lymphocytes % (Manual) Monocytes % (Manual) Basophils % (Manual) Nucleated RBC % Seg Neutrophils # 13.3 H Seg Neutrophils # Man Lymphocytes # (Manual) Monocytes # (Manual) Eosinophils # (Manual) Basophils # (Manual) PT INR D-Dimer ABG pH ABG pO2 ABG HCO3 ABG O2 Saturation ABG Base Excess ABG Hemoglobin Oxyhemoglobin Sodium Potassium Chloride 110.6 H Carbon Dioxide BUN 61 H Creatinine Glucose 109 H POC Glucose 116 H Lactic Acid Calcium Magnesium Iron TIBC Ferritin AST ALT Lactate Dehydrogenase Troponin T C-Reactive Protein Total Protein Albumin Prealbumin Cholesterol LDL Cholesterol Direct HDL Cholesterol Urine WBC (Auto) Vancomycin Trough Coronavirus (PCR) Crossmatch 07/18/19 07/18/19 07/18/19 12:23 18:06 22:20 WBC RBC Hgb Hct MCV MCH MCHC RDW Plt Count Lymph % (Auto) [place] % (Auto) Lymph # [place] # Baso # Seg Neutrophils % Seg Neuts % (Manual) Lymphocytes % (Manual) Monocytes % (Manual) Basophils % (Manual) Nucleated RBC % Seg Neutrophils # Seg Neutrophils # Man Lymphocytes # (Manual) Monocytes # (Manual) Eosinophils # (Manual) Basophils # (Manual) PT INR D-Dimer ABG pH 7.338 L ABG pO2 135.1 H ABG HCO3 ABG O2 Saturation ABG Base Excess ABG Hemoglobin 9.2 L Oxyhemoglobin Sodium Potassium Chloride Carbon Dioxide BUN Creatinine Glucose POC Glucose 114 H 113 H Lactic Acid Calcium Magnesium Iron TIBC Ferritin AST ALT Lactate Dehydrogenase Troponin T C-Reactive Protein Total Protein Albumin Prealbumin Cholesterol LDL Cholesterol Direct HDL Cholesterol Urine WBC (Auto) Vancomycin Trough Coronavirus (PCR) Crossmatch 07/18/19 07/19/19 07/19/19 23:33 03:45 05:18 WBC RBC Hgb Hct MCV MCH MCHC RDW Plt Count Lymph % (Auto) [place] % (Auto) Lymph # [place] # Baso # Seg Neutrophils % Seg Neuts % (Manual) Lymphocytes % (Manual) Monocytes % (Manual) Basophils % (Manual) Nucleated RBC % Seg Neutrophils # Seg Neutrophils # Man Lymphocytes # (Manual) Monocytes # (Manual) Eosinophils # (Manual) Basophils # (Manual) PT INR D-Dimer ABG pH 7.342 L ABG pO2 95.0 H ABG HCO3 ABG O2 Saturation ABG Base Excess ABG Hemoglobin 8.5 L Oxyhemoglobin Sodium Potassium Chloride Carbon Dioxide BUN Creatinine Glucose POC Glucose 125 H 111 H Lactic Acid Calcium Magnesium Iron TIBC Ferritin AST ALT Lactate Dehydrogenase Troponin T C-Reactive Protein Total Protein Albumin Prealbumin Cholesterol LDL Cholesterol Direct HDL Cholesterol Urine WBC (Auto) Vancomycin Trough Coronavirus (PCR) Crossmatch 07/19/19 07/19/19 07/19/19 08:45 08:45 11:47 WBC 15.9 H RBC 3.31 L Hgb 9.1 L Hct 28.4 L MCV MCH 27 L MCHC RDW 19.1 H Plt Count 858 H Lymph % (Auto) 4.9 L [place] % (Auto) 8.1 H Lymph # 0.8 L [place] # 1.3 H Baso # Seg Neutrophils % 85.5 H Seg Neuts % (Manual) Lymphocytes % (Manual) Monocytes % (Manual) Basophils % (Manual) Nucleated RBC % Seg Neutrophils # 13.6 H Seg Neutrophils # Man Lymphocytes # (Manual) Monocytes # (Manual) Eosinophils # (Manual) Basophils # (Manual) PT INR D-Dimer ABG pH ABG pO2 ABG HCO3 ABG O2 Saturation ABG Base Excess ABG Hemoglobin Oxyhemoglobin Sodium Potassium Chloride 111.6 H Carbon Dioxide BUN 50 H Creatinine 0.7 L Glucose 118 H POC Glucose 114 H Lactic Acid Calcium Magnesium Iron TIBC Ferritin AST ALT Lactate Dehydrogenase Troponin T C-Reactive Protein Total Protein Albumin Prealbumin Cholesterol LDL Cholesterol Direct HDL Cholesterol Urine WBC (Auto) Vancomycin Trough Coronavirus (PCR) Crossmatch 07/19/19 07/19/19 07/20/19 18:25 23:44 04:39 WBC RBC Hgb Hct MCV MCH MCHC RDW Plt Count Lymph % (Auto) [place] % (Auto) Lymph # [place] # Baso # Seg Neutrophils % Seg Neuts % (Manual) Lymphocytes % (Manual) Monocytes % (Manual) Basophils % (Manual) Nucleated RBC % Seg Neutrophils # Seg Neutrophils # Man Lymphocytes # (Manual) Monocytes # (Manual) Eosinophils # (Manual) Basophils # (Manual) PT INR D-Dimer ABG pH ABG pO2 ABG HCO3 ABG O2 Saturation ABG Base Excess ABG Hemoglobin Oxyhemoglobin Sodium Potassium Chloride 110.3 H Carbon Dioxide BUN 44 H Creatinine 0.6 L Glucose 120 H POC Glucose 115 H 117 H Lactic Acid Calcium Magnesium Iron TIBC Ferritin AST ALT Lactate Dehydrogenase Troponin T C-Reactive Protein Total Protein Albumin Prealbumin Cholesterol LDL Cholesterol Direct HDL Cholesterol Urine WBC (Auto) Vancomycin Trough Coronavirus (PCR) Crossmatch 07/20/19 07/21/19 07/21/19 05:30 11:59 17:40 WBC RBC Hgb Hct MCV MCH MCHC RDW Plt Count Lymph % (Auto) [place] % (Auto) Lymph # [place] # Baso # Seg Neutrophils % Seg Neuts % (Manual) Lymphocytes % (Manual) Monocytes % (Manual) Basophils % (Manual) Nucleated RBC % Seg Neutrophils # Seg Neutrophils # Man Lymphocytes # (Manual) Monocytes # (Manual) Eosinophils # (Manual) Basophils # (Manual) PT INR D-Dimer ABG pH ABG pO2 ABG HCO3 ABG O2 Saturation ABG Base Excess ABG Hemoglobin Oxyhemoglobin Sodium Potassium Chloride Carbon Dioxide BUN Creatinine Glucose POC Glucose 131 H 122 H 125 H Lactic Acid Calcium Magnesium Iron TIBC Ferritin AST ALT Lactate Dehydrogenase Troponin T C-Reactive Protein Total Protein Albumin Prealbumin Cholesterol LDL Cholesterol Direct HDL Cholesterol Urine WBC (Auto) Vancomycin Trough Coronavirus (PCR) Crossmatch 07/22/19 07/22/19 07/22/19 05:38 05:38 12:29 WBC 12.6 H RBC 3.19 L Hgb 8.9 L Hct 27.5 L MCV MCH MCHC RDW 18.9 H Plt Count 1101 H* Lymph % (Auto) [place] % (Auto) 12.2 H Lymph # [place] # 1.5 H Baso # Seg Neutrophils % 72.8 H Seg Neuts % (Manual) 76.0 H Lymphocytes % (Manual) 7.0 L Monocytes % (Manual) 14.0 H Basophils % (Manual) Nucleated RBC % 1.0 H Seg Neutrophils # 9.2 H Seg Neutrophils # Man 9.6 H Lymphocytes # (Manual) 0.9 L Monocytes # (Manual) 1.8 H Eosinophils # (Manual) Basophils # (Manual) PT INR D-Dimer ABG pH ABG pO2 ABG HCO3 ABG O2 Saturation ABG Base Excess ABG Hemoglobin Oxyhemoglobin Sodium Potassium 3.4 L Chloride Carbon Dioxide BUN 29 H Creatinine 0.5 L Glucose POC Glucose 116 H Lactic Acid Calcium Magnesium Iron TIBC Ferritin AST ALT Lactate Dehydrogenase Troponin T C-Reactive Protein Total Protein Albumin Prealbumin Cholesterol LDL Cholesterol Direct HDL Cholesterol Urine WBC (Auto) Vancomycin Trough Coronavirus (PCR) Crossmatch 07/22/19 07/22/19 07/23/19 18:20 23:51 04:52 WBC RBC Hgb Hct MCV MCH MCHC RDW Plt Count Lymph % (Auto) [place] % (Auto) Lymph # [place] # Baso # Seg Neutrophils % Seg Neuts % (Manual) Lymphocytes % (Manual) Monocytes % (Manual) Basophils % (Manual) Nucleated RBC % Seg Neutrophils # Seg Neutrophils # Man Lymphocytes # (Manual) Monocytes # (Manual) Eosinophils # (Manual) Basophils # (Manual) PT INR D-Dimer ABG pH ABG pO2 ABG HCO3 ABG O2 Saturation ABG Base Excess ABG Hemoglobin Oxyhemoglobin Sodium Potassium Chloride Carbon Dioxide BUN 24 H Creatinine 0.4 L Glucose POC Glucose 107 H 110 H Lactic Acid Calcium Magnesium Iron TIBC Ferritin AST ALT Lactate Dehydrogenase Troponin T C-Reactive Protein Total Protein Albumin Prealbumin Cholesterol LDL Cholesterol Direct HDL Cholesterol Urine WBC (Auto) Vancomycin Trough Coronavirus (PCR) Crossmatch 07/23/19 07/23/19 07/24/19 06:00 23:15 04:40 WBC RBC Hgb Hct MCV MCH MCHC RDW Plt Count Lymph % (Auto) [place] % (Auto) Lymph # [place] # Baso # Seg Neutrophils % Seg Neuts % (Manual) Lymphocytes % (Manual) Monocytes % (Manual) Basophils % (Manual) Nucleated RBC % Seg Neutrophils # Seg Neutrophils # Man Lymphocytes # (Manual) Monocytes # (Manual) Eosinophils # (Manual) Basophils # (Manual) PT INR D-Dimer ABG pH ABG pO2 73.5 L ABG HCO3 27.0 H 28.5 H ABG O2 Saturation 94.5 L ABG Base Excess ABG Hemoglobin 9.4 L 8.9 L Oxyhemoglobin 94.0 L 92.7 L Sodium Potassium Chloride Carbon Dioxide BUN Creatinine Glucose POC Glucose 117 H Lactic Acid Calcium Magnesium Iron TIBC Ferritin AST ALT Lactate Dehydrogenase Troponin T C-Reactive Protein Total Protein Albumin Prealbumin Cholesterol LDL Cholesterol Direct HDL Cholesterol Urine WBC (Auto) Vancomycin Trough Coronavirus (PCR) Crossmatch 07/24/19 07/24/19 07/25/19 05:25 12:06 00:16 WBC RBC Hgb Hct MCV MCH MCHC RDW Plt Count Lymph % (Auto) [place] % (Auto) Lymph # [place] # Baso # Seg Neutrophils % Seg Neuts % (Manual) Lymphocytes % (Manual) Monocytes % (Manual) Basophils % (Manual) Nucleated RBC % Seg Neutrophils # Seg Neutrophils # Man Lymphocytes # (Manual) Monocytes # (Manual) Eosinophils # (Manual) Basophils # (Manual) PT INR D-Dimer ABG pH ABG pO2 ABG HCO3 ABG O2 Saturation ABG Base Excess ABG Hemoglobin Oxyhemoglobin Sodium Potassium Chloride Carbon Dioxide BUN Creatinine Glucose POC Glucose 114 H 108 H 106 H Lactic Acid Calcium Magnesium Iron TIBC Ferritin AST ALT Lactate Dehydrogenase Troponin T C-Reactive Protein Total Protein Albumin Prealbumin Cholesterol LDL Cholesterol Direct HDL Cholesterol Urine WBC (Auto) Vancomycin Trough Coronavirus (PCR) Crossmatch 07/25/19 07/25/19 07/25/19 05:14 05:14 05:17 WBC 17.8 H RBC 3.32 L Hgb 9.2 L Hct 28.6 L MCV MCH MCHC RDW 19.9 H Plt Count 994 H Lymph % (Auto) [place] % (Auto) Lymph # [place] # Baso # Seg Neutrophils % Seg Neuts % (Manual) 82.0 H Lymphocytes % (Manual) 5.0 L Monocytes % (Manual) Basophils % (Manual) Nucleated RBC % Seg Neutrophils # Seg Neutrophils # Man 14.6 H Lymphocytes # (Manual) 0.9 L Monocytes # (Manual) 1.2 H Eosinophils # (Manual) Basophils # (Manual) PT INR D-Dimer ABG pH ABG pO2 ABG HCO3 ABG O2 Saturation ABG Base Excess ABG Hemoglobin Oxyhemoglobin Sodium Potassium Chloride Carbon Dioxide BUN Creatinine 0.4 L Glucose 110 H POC Glucose 107 H Lactic Acid Calcium Magnesium Iron TIBC Ferritin AST ALT Lactate Dehydrogenase Troponin T C-Reactive Protein Total Protein Albumin Prealbumin Cholesterol LDL Cholesterol Direct HDL Cholesterol Urine WBC (Auto) Vancomycin Trough Coronavirus (PCR) Crossmatch 07/25/19 07/25/19 07/26/19 11:55 23:49 06:01 WBC RBC Hgb Hct MCV MCH MCHC RDW Plt Count Lymph % (Auto) [place] % (Auto) Lymph # [place] # Baso # Seg Neutrophils % Seg Neuts % (Manual) Lymphocytes % (Manual) Monocytes % (Manual) Basophils % (Manual) Nucleated RBC % Seg Neutrophils # Seg Neutrophils # Man Lymphocytes # (Manual) Monocytes # (Manual) Eosinophils # (Manual) Basophils # (Manual) PT INR D-Dimer ABG pH ABG pO2 ABG HCO3 ABG O2 Saturation ABG Base Excess ABG Hemoglobin Oxyhemoglobin Sodium Potassium Chloride Carbon Dioxide BUN Creatinine Glucose POC Glucose 123 H 118 H 106 H Lactic Acid Calcium Magnesium Iron TIBC Ferritin AST ALT Lactate Dehydrogenase Troponin T C-Reactive Protein Total Protein Albumin Prealbumin Cholesterol LDL Cholesterol Direct HDL Cholesterol Urine WBC (Auto) Vancomycin Trough Coronavirus (PCR) Crossmatch 07/26/19 07/27/19 07/27/19 17:02 00:28 05:16 WBC RBC Hgb Hct MCV MCH MCHC RDW Plt Count Lymph % (Auto) [place] % (Auto) Lymph # [place] # Baso # Seg Neutrophils % Seg Neuts % (Manual) Lymphocytes % (Manual) Monocytes % (Manual) Basophils % (Manual) Nucleated RBC % Seg Neutrophils # Seg Neutrophils # Man Lymphocytes # (Manual) Monocytes # (Manual) Eosinophils # (Manual) Basophils # (Manual) PT INR D-Dimer ABG pH ABG pO2 63.4 L ABG HCO3 31.3 H ABG O2 Saturation 92.7 L ABG Base Excess 6.3 H ABG Hemoglobin 7.6 L Oxyhemoglobin 90.9 L Sodium Potassium Chloride Carbon Dioxide BUN Creatinine Glucose POC Glucose 116 H 158 H Lactic Acid Calcium Magnesium Iron TIBC Ferritin AST ALT Lactate Dehydrogenase Troponin T C-Reactive Protein Total Protein Albumin Prealbumin Cholesterol LDL Cholesterol Direct HDL Cholesterol Urine WBC (Auto) Vancomycin Trough Coronavirus (PCR) Crossmatch 07/28/19 07/28/19 07/28/19 10:13 10:13 23:54 WBC 18.5 H RBC 3.20 L Hgb 8.8 L Hct 26.8 L MCV MCH 27 L MCHC RDW 19.9 H Plt Count 730 H Lymph % (Auto) [place] % (Auto) Lymph # [place] # Baso # Seg Neutrophils % Seg Neuts % (Manual) Lymphocytes % (Manual) Monocytes % (Manual) Basophils % (Manual) Nucleated RBC % Seg Neutrophils # Seg Neutrophils # Man Lymphocytes # (Manual) Monocytes # (Manual) Eosinophils # (Manual) Basophils # (Manual) PT INR D-Dimer ABG pH ABG pO2 ABG HCO3 ABG O2 Saturation ABG Base Excess ABG Hemoglobin Oxyhemoglobin Sodium Potassium 3.2 L Chloride 97.5 L Carbon Dioxide 31 H BUN Creatinine 0.5 L Glucose POC Glucose 120 H Lactic Acid Calcium Magnesium Iron TIBC Ferritin AST ALT Lactate Dehydrogenase Troponin T C-Reactive Protein Total Protein Albumin Prealbumin Cholesterol LDL Cholesterol Direct HDL Cholesterol Urine WBC (Auto) Vancomycin Trough Coronavirus (PCR) Crossmatch 07/29/19 07/29/19 07/29/19 11:57 17:43 Unknown WBC RBC Hgb Hct MCV MCH MCHC RDW Plt Count Lymph % (Auto) [place] % (Auto) Lymph # [place] # Baso # Seg Neutrophils % Seg Neuts % (Manual) Lymphocytes % (Manual) Monocytes % (Manual) Basophils % (Manual) Nucleated RBC % Seg Neutrophils # Seg Neutrophils # Man Lymphocytes # (Manual) Monocytes # (Manual) Eosinophils # (Manual) Basophils # (Manual) PT INR D-Dimer ABG pH ABG pO2 ABG HCO3 ABG O2 Saturation ABG Base Excess ABG Hemoglobin Oxyhemoglobin Sodium Potassium Chloride Carbon Dioxide BUN Creatinine Glucose POC Glucose 112 H Lactic Acid Calcium Magnesium Iron TIBC Ferritin AST ALT Lactate Dehydrogenase Troponin T C-Reactive Protein Total Protein Albumin Prealbumin Cholesterol LDL Cholesterol Direct HDL Cholesterol Urine WBC (Auto) 63.0 H Vancomycin Trough Coronavirus (PCR) Positive A Crossmatch 07/30/19 07/30/19 07/30/19 00:20 04:35 04:35 WBC 24.3 H RBC 3.12 L Hgb 8.5 L Hct 26.3 L MCV MCH 27 L MCHC RDW 20.2 H Plt Count 550 H Lymph % (Auto) [place] % (Auto) Lymph # [place] # Baso # Seg Neutrophils % Seg Neuts % (Manual) Lymphocytes % (Manual) Monocytes % (Manual) Basophils % (Manual) Nucleated RBC % Seg Neutrophils # Seg Neutrophils # Man Lymphocytes # (Manual) Monocytes # (Manual) Eosinophils # (Manual) Basophils # (Manual) PT INR D-Dimer ABG pH ABG pO2 ABG HCO3 ABG O2 Saturation ABG Base Excess ABG Hemoglobin Oxyhemoglobin Sodium Potassium 3.0 L Chloride 96.3 L Carbon Dioxide 32 H BUN Creatinine 0.5 L Glucose POC Glucose 106 H Lactic Acid Calcium Magnesium Iron TIBC Ferritin AST ALT Lactate Dehydrogenase Troponin T C-Reactive Protein Total Protein Albumin Prealbumin Cholesterol LDL Cholesterol Direct HDL Cholesterol Urine WBC (Auto) Vancomycin Trough Coronavirus (PCR) Crossmatch 07/31/19 07/31/19 07/31/19 04:42 04:42 11:33 WBC 23.8 H RBC 3.10 L Hgb 8.4 L Hct 26.1 L MCV MCH 27 L MCHC RDW 19.6 H Plt Count 561 H Lymph % (Auto) [place] % (Auto) Lymph # [place] # Baso # Seg Neutrophils % Seg Neuts % (Manual) Lymphocytes % (Manual) Monocytes % (Manual) Basophils % (Manual) Nucleated RBC % Seg Neutrophils # Seg Neutrophils # Man Lymphocytes # (Manual) Monocytes # (Manual) Eosinophils # (Manual) Basophils # (Manual) PT INR D-Dimer ABG pH ABG pO2 ABG HCO3 ABG O2 Saturation ABG Base Excess ABG Hemoglobin Oxyhemoglobin Sodium 135 L Potassium Chloride 93.9 L Carbon Dioxide 32 H BUN Creatinine 0.4 L Glucose POC Glucose 116 H Lactic Acid Calcium Magnesium Iron TIBC Ferritin AST ALT Lactate Dehydrogenase Troponin T C-Reactive Protein Total Protein Albumin 1.6 L Prealbumin 0.037 L Cholesterol LDL Cholesterol Direct HDL Cholesterol Urine WBC (Auto) Vancomycin Trough Coronavirus (PCR) Crossmatch 07/31/19 08/01/19 08/01/19 23:33 04:57 04:57 WBC 26.7 H RBC 3.12 L Hgb 8.5 L Hct 26.3 L MCV MCH 27 L MCHC RDW 19.2 H Plt Count 602 H Lymph % (Auto) [place] % (Auto) Lymph # [place] # Baso # Seg Neutrophils % Seg Neuts % (Manual) 93.0 H Lymphocytes % (Manual) 2.0 L Monocytes % (Manual) Basophils % (Manual) Nucleated RBC % Seg Neutrophils # Seg Neutrophils # Man 24.8 H Lymphocytes # (Manual) 0.5 L Monocytes # (Manual) 1.1 H Eosinophils # (Manual) Basophils # (Manual) PT INR D-Dimer ABG pH ABG pO2 ABG HCO3 ABG O2 Saturation ABG Base Excess ABG Hemoglobin Oxyhemoglobin Sodium 132 L Potassium Chloride 93.8 L Carbon Dioxide 31 H BUN Creatinine 0.3 L Glucose POC Glucose 148 H Lactic Acid Calcium 8.1 L Magnesium Iron TIBC Ferritin AST ALT Lactate Dehydrogenase Troponin T C-Reactive Protein Total Protein Albumin Prealbumin Cholesterol LDL Cholesterol Direct HDL Cholesterol Urine WBC (Auto) Vancomycin Trough Coronavirus (PCR) Crossmatch 08/01/19 08/02/19 08/02/19 12:16 00:22 05:24 WBC RBC Hgb Hct MCV MCH MCHC RDW Plt Count Lymph % (Auto) [place] % (Auto) Lymph # [place] # Baso # Seg Neutrophils % Seg Neuts % (Manual) Lymphocytes % (Manual) Monocytes % (Manual) Basophils % (Manual) Nucleated RBC % Seg Neutrophils # Seg Neutrophils # Man Lymphocytes # (Manual) Monocytes # (Manual) Eosinophils # (Manual) Basophils # (Manual) PT INR D-Dimer ABG pH ABG pO2 ABG HCO3 ABG O2 Saturation ABG Base Excess ABG Hemoglobin Oxyhemoglobin Sodium Potassium Chloride Carbon Dioxide BUN Creatinine Glucose POC Glucose 120 H 119 H 113 H Lactic Acid Calcium Magnesium Iron TIBC Ferritin AST ALT Lactate Dehydrogenase Troponin T C-Reactive Protein Total Protein Albumin Prealbumin Cholesterol LDL Cholesterol Direct HDL Cholesterol Urine WBC (Auto) Vancomycin Trough Coronavirus (PCR) Crossmatch 08/03/19 08/03/19 08/03/19 05:20 12:01 23:48 WBC RBC Hgb Hct MCV MCH MCHC RDW Plt Count Lymph % (Auto) [place] % (Auto) Lymph # [place] # Baso # Seg Neutrophils % Seg Neuts % (Manual) Lymphocytes % (Manual) Monocytes % (Manual) Basophils % (Manual) Nucleated RBC % Seg Neutrophils # Seg Neutrophils # Man Lymphocytes # (Manual) Monocytes # (Manual) Eosinophils # (Manual) Basophils # (Manual) PT INR D-Dimer ABG pH ABG pO2 ABG HCO3 ABG O2 Saturation ABG Base Excess ABG Hemoglobin Oxyhemoglobin Sodium Potassium Chloride Carbon Dioxide BUN Creatinine Glucose POC Glucose 118 H 106 H 120 H Lactic Acid Calcium Magnesium Iron TIBC Ferritin AST ALT Lactate Dehydrogenase Troponin T C-Reactive Protein Total Protein Albumin Prealbumin Cholesterol LDL Cholesterol Direct HDL Cholesterol Urine WBC (Auto) Vancomycin Trough Coronavirus (PCR) Crossmatch 08/04/19 08/04/19 08/04/19 05:38 05:38 06:29 WBC 26.1 H RBC 2.77 L Hgb 7.5 L Hct 23.2 L MCV MCH 27 L MCHC RDW 19.2 H Plt Count 648 H Lymph % (Auto) [place] % (Auto) Lymph # [place] # Baso # Seg Neutrophils % Seg Neuts % (Manual) 90.5 H Lymphocytes % (Manual) 3.5 L Monocytes % (Manual) Basophils % (Manual) Nucleated RBC % Seg Neutrophils # Seg Neutrophils # Man 23.6 H Lymphocytes # (Manual) 0.9 L Monocytes # (Manual) 1.2 H Eosinophils # (Manual) Basophils # (Manual) PT INR D-Dimer ABG pH ABG pO2 ABG HCO3 ABG O2 Saturation ABG Base Excess ABG Hemoglobin Oxyhemoglobin Sodium 132 L Potassium 3.4 L D Chloride 92.7 L Carbon Dioxide 33 H BUN Creatinine 0.2 L Glucose POC Glucose 108 H Lactic Acid Calcium 8.1 L Magnesium Iron TIBC Ferritin AST ALT Lactate Dehydrogenase Troponin T C-Reactive Protein Total Protein Albumin Prealbumin Cholesterol LDL Cholesterol Direct HDL Cholesterol Urine WBC (Auto) Vancomycin Trough Coronavirus (PCR) Crossmatch 08/04/19 08/05/19 08/05/19 12:30 04:58 04:58 WBC 21.0 H RBC 2.63 L Hgb 7.2 L Hct 21.9 L MCV 83 L MCH 27 L MCHC RDW 18.9 H Plt Count 691 H Lymph % (Auto) [place] % (Auto) Lymph # [place] # Baso # Seg Neutrophils % Seg Neuts % (Manual) 86.0 H Lymphocytes % (Manual) 3.0 L Monocytes % (Manual) 10.0 H Basophils % (Manual) Nucleated RBC % Seg Neutrophils # Seg Neutrophils # Man 18.1 H Lymphocytes # (Manual) 0.6 L Monocytes # (Manual) 2.1 H Eosinophils # (Manual) Basophils # (Manual) PT INR D-Dimer ABG pH ABG pO2 ABG HCO3 ABG O2 Saturation ABG Base Excess ABG Hemoglobin Oxyhemoglobin Sodium 134 L Potassium 3.2 L Chloride 93.2 L Carbon Dioxide 34 H BUN 8 L Creatinine 0.3 L Glucose POC Glucose 138 H Lactic Acid Calcium 8.1 L Magnesium Iron TIBC Ferritin AST ALT Lactate Dehydrogenase Troponin T C-Reactive Protein Total Protein Albumin Prealbumin Cholesterol LDL Cholesterol Direct HDL Cholesterol Urine WBC (Auto) Vancomycin Trough Coronavirus (PCR) Crossmatch 08/05/19 08/05/19 08/05/19 11:53 17:57 23:58 WBC RBC Hgb Hct MCV MCH MCHC RDW Plt Count Lymph % (Auto) [place] % (Auto) Lymph # [place] # Baso # Seg Neutrophils % Seg Neuts % (Manual) Lymphocytes % (Manual) Monocytes % (Manual) Basophils % (Manual) Nucleated RBC % Seg Neutrophils # Seg Neutrophils # Man Lymphocytes # (Manual) Monocytes # (Manual) Eosinophils # (Manual) Basophils # (Manual) PT INR D-Dimer ABG pH ABG pO2 ABG HCO3 ABG O2 Saturation ABG Base Excess ABG Hemoglobin Oxyhemoglobin Sodium Potassium Chloride Carbon Dioxide BUN Creatinine Glucose POC Glucose 106 H 111 H 116 H Lactic Acid Calcium Magnesium Iron TIBC Ferritin AST ALT Lactate Dehydrogenase Troponin T C-Reactive Protein Total Protein Albumin Prealbumin Cholesterol LDL Cholesterol Direct HDL Cholesterol Urine WBC (Auto) Vancomycin Trough Coronavirus (PCR) Crossmatch 08/06/19 08/06/19 08/06/19 04:11 04:11 06:04 WBC 20.8 H RBC 2.80 L Hgb 7.6 L Hct 23.5 L MCV MCH 27 L MCHC RDW 19.0 H Plt Count 723 H Lymph % (Auto) [place] % (Auto) Lymph # [place] # Baso # Seg Neutrophils % Seg Neuts % (Manual) 88.0 H Lymphocytes % (Manual) 3.0 L Monocytes % (Manual) Basophils % (Manual) Nucleated RBC % Seg Neutrophils # Seg Neutrophils # Man 18.3 H Lymphocytes # (Manual) 0.6 L Monocytes # (Manual) Eosinophils # (Manual) Basophils # (Manual) 0.2 H PT INR D-Dimer ABG pH ABG pO2 ABG HCO3 ABG O2 Saturation ABG Base Excess ABG Hemoglobin Oxyhemoglobin Sodium Potassium 3.4 L Chloride 95.2 L Carbon Dioxide 32 H BUN Creatinine 0.3 L Glucose POC Glucose 108 H Lactic Acid Calcium 8.2 L Magnesium Iron TIBC Ferritin AST ALT Lactate Dehydrogenase Troponin T C-Reactive Protein Total Protein Albumin Prealbumin Cholesterol LDL Cholesterol Direct HDL Cholesterol Urine WBC (Auto) Vancomycin Trough Coronavirus (PCR) Crossmatch 08/06/19 08/06/19 08/07/19 12:23 17:13 00:21 WBC RBC Hgb Hct MCV MCH MCHC RDW Plt Count Lymph % (Auto) [place] % (Auto) Lymph # [place] # Baso # Seg Neutrophils % Seg Neuts % (Manual) Lymphocytes % (Manual) Monocytes % (Manual) Basophils % (Manual) Nucleated RBC % Seg Neutrophils # Seg Neutrophils # Man Lymphocytes # (Manual) Monocytes # (Manual) Eosinophils # (Manual) Basophils # (Manual) PT INR D-Dimer ABG pH ABG pO2 ABG HCO3 ABG O2 Saturation ABG Base Excess ABG Hemoglobin Oxyhemoglobin Sodium Potassium Chloride Carbon Dioxide BUN Creatinine Glucose POC Glucose 112 H 132 H 147 H Lactic Acid Calcium Magnesium Iron TIBC Ferritin AST ALT Lactate Dehydrogenase Troponin T C-Reactive Protein Total Protein Albumin Prealbumin Cholesterol LDL Cholesterol Direct HDL Cholesterol Urine WBC (Auto) Vancomycin Trough Coronavirus (PCR) Crossmatch 08/07/19 08/07/19 08/07/19 05:16 05:23 05:23 WBC 30.3 H RBC 2.69 L Hgb 7.1 L Hct 22.2 L MCV 83 L MCH 27 L MCHC RDW 19.1 H Plt Count 650 H Lymph % (Auto) [place] % (Auto) Lymph # [place] # Baso # Seg Neutrophils % Seg Neuts % (Manual) 88.0 H Lymphocytes % (Manual) 5.0 L Monocytes % (Manual) Basophils % (Manual) Nucleated RBC % Seg Neutrophils # Seg Neutrophils # Man 26.7 H Lymphocytes # (Manual) Monocytes # (Manual) 2.1 H Eosinophils # (Manual) Basophils # (Manual) PT INR D-Dimer ABG pH ABG pO2 ABG HCO3 ABG O2 Saturation ABG Base Excess ABG Hemoglobin Oxyhemoglobin Sodium 135 L Potassium 3.4 L Chloride 95.4 L Carbon Dioxide 32 H BUN Creatinine 0.4 L Glucose 120 H POC Glucose 120 H Lactic Acid Calcium 7.7 L Magnesium Iron TIBC Ferritin AST ALT Lactate Dehydrogenase Troponin T C-Reactive Protein Total Protein Albumin Prealbumin Cholesterol LDL Cholesterol Direct HDL Cholesterol Urine WBC (Auto) Vancomycin Trough Coronavirus (PCR) Crossmatch 08/07/19 08/07/19 08/07/19 10:24 10:24 11:10 WBC RBC Hgb Hct MCV MCH MCHC RDW Plt Count Lymph % (Auto) [place] % (Auto) Lymph # [place] # Baso # Seg Neutrophils % Seg Neuts % (Manual) Lymphocytes % (Manual) Monocytes % (Manual) Basophils % (Manual) Nucleated RBC % Seg Neutrophils # Seg Neutrophils # Man Lymphocytes # (Manual) Monocytes # (Manual) Eosinophils # (Manual) Basophils # (Manual) PT INR D-Dimer 1808.06 H ABG pH ABG pO2 73.3 L ABG HCO3 33.9 H ABG O2 Saturation ABG Base Excess 9.0 H ABG Hemoglobin 6.3 L Oxyhemoglobin 94.3 L Sodium Potassium Chloride Carbon Dioxide BUN Creatinine Glucose POC Glucose Lactic Acid Calcium Magnesium Iron TIBC Ferritin AST ALT Lactate Dehydrogenase Troponin T C-Reactive Protein 11.10 H Total Protein Albumin Prealbumin Cholesterol LDL Cholesterol Direct HDL Cholesterol Urine WBC (Auto) Vancomycin Trough Coronavirus (PCR) Crossmatch 08/07/19 08/08/19 08/08/19 12:01 04:41 04:41 WBC 22.1 H RBC 2.82 L Hgb 7.7 L Hct 23.6 L MCV MCH 27 L MCHC RDW 19.1 H Plt Count 722 H Lymph % (Auto) [place] % (Auto) Lymph # [place] # Baso # Seg Neutrophils % Seg Neuts % (Manual) 90.0 H Lymphocytes % (Manual) 3.0 L Monocytes % (Manual) Basophils % (Manual) Nucleated RBC % Seg Neutrophils # Seg Neutrophils # Man 19.9 H Lymphocytes # (Manual) 0.7 L Monocytes # (Manual) 1.3 H Eosinophils # (Manual) Basophils # (Manual) PT INR D-Dimer ABG pH ABG pO2 ABG HCO3 ABG O2 Saturation ABG Base Excess ABG Hemoglobin Oxyhemoglobin Sodium 136 L Potassium Chloride 97.8 L Carbon Dioxide BUN Creatinine 0.3 L Glucose 105 H POC Glucose 130 H Lactic Acid Calcium 7.8 L Magnesium Iron TIBC Ferritin AST ALT Lactate Dehydrogenase Troponin T C-Reactive Protein Total Protein Albumin Prealbumin Cholesterol LDL Cholesterol Direct HDL Cholesterol Urine WBC (Auto) Vancomycin Trough Coronavirus (PCR) Crossmatch 08/08/19 08/08/19 08/09/19 11:46 18:35 00:12 WBC RBC Hgb Hct MCV MCH MCHC RDW Plt Count Lymph % (Auto) [place] % (Auto) Lymph # [place] # Baso # Seg Neutrophils % Seg Neuts % (Manual) Lymphocytes % (Manual) Monocytes % (Manual) Basophils % (Manual) Nucleated RBC % Seg Neutrophils # Seg Neutrophils # Man Lymphocytes # (Manual) Monocytes # (Manual) Eosinophils # (Manual) Basophils # (Manual) PT INR D-Dimer ABG pH ABG pO2 ABG HCO3 ABG O2 Saturation ABG Base Excess ABG Hemoglobin Oxyhemoglobin Sodium Potassium Chloride Carbon Dioxide BUN Creatinine Glucose POC Glucose 117 H 117 H 117 H Lactic Acid Calcium Magnesium Iron TIBC Ferritin AST ALT Lactate Dehydrogenase Troponin T C-Reactive Protein Total Protein Albumin Prealbumin Cholesterol LDL Cholesterol Direct HDL Cholesterol Urine WBC (Auto) Vancomycin Trough Coronavirus (PCR) Crossmatch 08/09/19 08/09/19 08/09/19 05:33 12:22 17:48 WBC RBC Hgb Hct MCV MCH MCHC RDW Plt Count Lymph % (Auto) [place] % (Auto) Lymph # [place] # Baso # Seg Neutrophils % Seg Neuts % (Manual) Lymphocytes % (Manual) Monocytes % (Manual) Basophils % (Manual) Nucleated RBC % Seg Neutrophils # Seg Neutrophils # Man Lymphocytes # (Manual) Monocytes # (Manual) Eosinophils # (Manual) Basophils # (Manual) PT INR D-Dimer ABG pH ABG pO2 ABG HCO3 ABG O2 Saturation ABG Base Excess ABG Hemoglobin Oxyhemoglobin Sodium Potassium Chloride Carbon Dioxide BUN Creatinine Glucose POC Glucose 119 H 133 H 123 H Lactic Acid Calcium Magnesium Iron TIBC Ferritin AST ALT Lactate Dehydrogenase Troponin T C-Reactive Protein Total Protein Albumin Prealbumin Cholesterol LDL Cholesterol Direct HDL Cholesterol Urine WBC (Auto) Vancomycin Trough Coronavirus (PCR) Crossmatch 08/09/19 08/09/19 08/10/19 17:59 18:15 00:02 WBC RBC Hgb 6.7 L Hct 20.4 L MCV MCH MCHC RDW Plt Count Lymph % (Auto) [place] % (Auto) Lymph # [place] # Baso # Seg Neutrophils % Seg Neuts % (Manual) Lymphocytes % (Manual) Monocytes % (Manual) Basophils % (Manual) Nucleated RBC % Seg Neutrophils # Seg Neutrophils # Man Lymphocytes # (Manual) Monocytes # (Manual) Eosinophils # (Manual) Basophils # (Manual) PT INR D-Dimer ABG pH ABG pO2 ABG HCO3 ABG O2 Saturation ABG Base Excess ABG Hemoglobin Oxyhemoglobin Sodium Potassium Chloride Carbon Dioxide BUN Creatinine Glucose POC Glucose 124 H Lactic Acid Calcium Magnesium Iron TIBC Ferritin AST ALT Lactate Dehydrogenase Troponin T C-Reactive Protein Total Protein Albumin Prealbumin Cholesterol LDL Cholesterol Direct HDL Cholesterol Urine WBC (Auto) Vancomycin Trough Coronavirus (PCR) Crossmatch See Detail 08/10/19 08/10/19 08/10/19 05:47 08:00 08:00 WBC 16.9 H RBC 2.94 L Hgb 8.2 L Hct 24.9 L MCV MCH MCHC RDW 17.0 H Plt Count 661 H Lymph % (Auto) [place] % (Auto) Lymph # [place] # Baso # Seg Neutrophils % Seg Neuts % (Manual) Lymphocytes % (Manual) Monocytes % (Manual) Basophils % (Manual) Nucleated RBC % Seg Neutrophils # Seg Neutrophils # Man Lymphocytes # (Manual) Monocytes # (Manual) Eosinophils # (Manual) Basophils # (Manual) PT INR D-Dimer ABG pH ABG pO2 ABG HCO3 ABG O2 Saturation ABG Base Excess ABG Hemoglobin Oxyhemoglobin Sodium Potassium Chloride Carbon Dioxide BUN Creatinine 0.3 L Glucose 116 H POC Glucose 148 H Lactic Acid Calcium 7.7 L Magnesium Iron TIBC Ferritin AST ALT Lactate Dehydrogenase Troponin T C-Reactive Protein Total Protein Albumin Prealbumin Cholesterol LDL Cholesterol Direct HDL Cholesterol Urine WBC (Auto) Vancomycin Trough Coronavirus (PCR) Crossmatch 08/10/19 08/10/19 08/10/19 12:38 18:06 23:56 WBC RBC Hgb Hct MCV MCH MCHC RDW Plt Count Lymph % (Auto) [place] % (Auto) Lymph # [place] # Baso # Seg Neutrophils % Seg Neuts % (Manual) Lymphocytes % (Manual) Monocytes % (Manual) Basophils % (Manual) Nucleated RBC % Seg Neutrophils # Seg Neutrophils # Man Lymphocytes # (Manual) Monocytes # (Manual) Eosinophils # (Manual) Basophils # (Manual) PT INR D-Dimer ABG pH ABG pO2 ABG HCO3 ABG O2 Saturation ABG Base Excess ABG Hemoglobin Oxyhemoglobin Sodium Potassium Chloride Carbon Dioxide BUN Creatinine Glucose POC Glucose 113 H 126 H 115 H Lactic Acid Calcium Magnesium Iron TIBC Ferritin AST ALT Lactate Dehydrogenase Troponin T C-Reactive Protein Total Protein Albumin Prealbumin Cholesterol LDL Cholesterol Direct HDL Cholesterol Urine WBC (Auto) Vancomycin Trough Coronavirus (PCR) Crossmatch 08/10/19 08/11/19 08/12/19 Unknown 18:10 03:30 WBC 14.4 H RBC 2.58 L Hgb 7.4 L Hct 22.1 L MCV MCH MCHC RDW 17.4 H Plt Count 786 H Lymph % (Auto) [place] % (Auto) Lymph # [place] # Baso # Seg Neutrophils % Seg Neuts % (Manual) Lymphocytes % (Manual) Monocytes % (Manual) Basophils % (Manual) Nucleated RBC % Seg Neutrophils # Seg Neutrophils # Man Lymphocytes # (Manual) Monocytes # (Manual) Eosinophils # (Manual) Basophils # (Manual) PT INR D-Dimer ABG pH ABG pO2 ABG HCO3 ABG O2 Saturation ABG Base Excess ABG Hemoglobin Oxyhemoglobin Sodium Potassium Chloride Carbon Dioxide BUN Creatinine Glucose POC Glucose 106 H Lactic Acid Calcium Magnesium Iron TIBC Ferritin AST ALT Lactate Dehydrogenase Troponin T C-Reactive Protein Total Protein Albumin Prealbumin Cholesterol LDL Cholesterol Direct HDL Cholesterol Urine WBC (Auto) Vancomycin Trough Coronavirus (PCR) Positive A Crossmatch 08/12/19 08/12/19 08/13/19 03:30 12:08 05:25 WBC RBC Hgb Hct MCV MCH MCHC RDW Plt Count Lymph % (Auto) [place] % (Auto) Lymph # [place] # Baso # Seg Neutrophils % Seg Neuts % (Manual) Lymphocytes % (Manual) Monocytes % (Manual) Basophils % (Manual) Nucleated RBC % Seg Neutrophils # Seg Neutrophils # Man Lymphocytes # (Manual) Monocytes # (Manual) Eosinophils # (Manual) Basophils # (Manual) PT INR D-Dimer ABG pH ABG pO2 ABG HCO3 ABG O2 Saturation ABG Base Excess ABG Hemoglobin Oxyhemoglobin Sodium Potassium Chloride Carbon Dioxide BUN 7 L Creatinine 0.3 L Glucose 117 H POC Glucose 112 H 126 H Lactic Acid Calcium 7.8 L Magnesium Iron TIBC Ferritin AST ALT Lactate Dehydrogenase Troponin T C-Reactive Protein Total Protein Albumin Prealbumin Cholesterol LDL Cholesterol Direct HDL Cholesterol Urine WBC (Auto) Vancomycin Trough Coronavirus (PCR) Crossmatch 08/13/19 08/13/19 08/13/19 11:36 17:10 19:06 WBC RBC Hgb Hct MCV MCH MCHC RDW Plt Count Lymph % (Auto) [place] % (Auto) Lymph # [place] # Baso # Seg Neutrophils % Seg Neuts % (Manual) Lymphocytes % (Manual) Monocytes % (Manual) Basophils % (Manual) Nucleated RBC % Seg Neutrophils # Seg Neutrophils # Man Lymphocytes # (Manual) Monocytes # (Manual) Eosinophils # (Manual) Basophils # (Manual) PT INR D-Dimer ABG pH ABG pO2 105.0 H ABG HCO3 28.5 H ABG O2 Saturation ABG Base Excess 3.5 H ABG Hemoglobin 7.8 L Oxyhemoglobin Sodium Potassium Chloride Carbon Dioxide BUN Creatinine Glucose POC Glucose 143 H 107 H Lactic Acid Calcium Magnesium Iron TIBC Ferritin AST ALT Lactate Dehydrogenase Troponin T C-Reactive Protein Total Protein Albumin Prealbumin Cholesterol LDL Cholesterol Direct HDL Cholesterol Urine WBC (Auto) Vancomycin Trough Coronavirus (PCR) Crossmatch 08/13/19 08/14/19 08/14/19 23:23 05:00 05:00 WBC 14.3 H RBC 2.76 L Hgb 7.8 L Hct 23.9 L MCV MCH MCHC RDW 18.7 H Plt Count 896 H Lymph % (Auto) [place] % (Auto) Lymph # [place] # Baso # Seg Neutrophils % Seg Neuts % (Manual) Lymphocytes % (Manual) Monocytes % (Manual) Basophils % (Manual) Nucleated RBC % Seg Neutrophils # Seg Neutrophils # Man Lymphocytes # (Manual) Monocytes # (Manual) Eosinophils # (Manual) Basophils # (Manual) PT INR D-Dimer ABG pH ABG pO2 ABG HCO3 ABG O2 Saturation ABG Base Excess ABG Hemoglobin Oxyhemoglobin Sodium Potassium Chloride Carbon Dioxide BUN 6 L Creatinine 0.3 L Glucose POC Glucose 125 H Lactic Acid Calcium 8.2 L Magnesium Iron TIBC Ferritin AST ALT Lactate Dehydrogenase Troponin T C-Reactive Protein Total Protein Albumin Prealbumin Cholesterol LDL Cholesterol Direct HDL Cholesterol Urine WBC (Auto) Vancomycin Trough Coronavirus (PCR) Crossmatch 08/14/19 08/15/19 08/15/19 05:07 00:25 05:42 WBC RBC Hgb Hct MCV MCH MCHC RDW Plt Count Lymph % (Auto) [place] % (Auto) Lymph # [place] # Baso # Seg Neutrophils % Seg Neuts % (Manual) Lymphocytes % (Manual) Monocytes % (Manual) Basophils % (Manual) Nucleated RBC % Seg Neutrophils # Seg Neutrophils # Man Lymphocytes # (Manual) Monocytes # (Manual) Eosinophils # (Manual) Basophils # (Manual) PT INR D-Dimer ABG pH ABG pO2 ABG HCO3 ABG O2 Saturation ABG Base Excess ABG Hemoglobin Oxyhemoglobin Sodium Potassium Chloride Carbon Dioxide BUN Creatinine Glucose POC Glucose 128 H 117 H 115 H Lactic Acid Calcium Magnesium Iron TIBC Ferritin AST ALT Lactate Dehydrogenase Troponin T C-Reactive Protein Total Protein Albumin Prealbumin Cholesterol LDL Cholesterol Direct HDL Cholesterol Urine WBC (Auto) Vancomycin Trough Coronavirus (PCR) Crossmatch 08/15/19 08/15/19 08/15/19 06:10 06:10 06:10 WBC 11.6 H RBC 2.68 L Hgb 7.7 L Hct 23.3 L MCV MCH MCHC RDW 19.2 H Plt Count 885 H Lymph % (Auto) [place] % (Auto) Lymph # [place] # Baso # Seg Neutrophils % Seg Neuts % (Manual) Lymphocytes % (Manual) Monocytes % (Manual) Basophils % (Manual) Nucleated RBC % Seg Neutrophils # Seg Neutrophils # Man Lymphocytes # (Manual) Monocytes # (Manual) Eosinophils # (Manual) Basophils # (Manual) PT INR D-Dimer ABG pH ABG pO2 ABG HCO3 ABG O2 Saturation ABG Base Excess ABG Hemoglobin Oxyhemoglobin Sodium Potassium Chloride Carbon Dioxide BUN 6 L Creatinine 0.3 L Glucose 107 H POC Glucose Lactic Acid Calcium 8.2 L Magnesium 1.50 L Iron TIBC Ferritin AST ALT Lactate Dehydrogenase Troponin T C-Reactive Protein Total Protein Albumin Prealbumin Cholesterol LDL Cholesterol Direct HDL Cholesterol Urine WBC (Auto) Vancomycin Trough Coronavirus (PCR) Crossmatch 08/15/19 08/16/19 08/16/19 12:12 00:05 05:00 WBC 13.3 H RBC 2.87 L Hgb 8.1 L Hct 24.9 L MCV MCH MCHC RDW 18.7 H Plt Count 962 H Lymph % (Auto) [place] % (Auto) Lymph # [place] # Baso # Seg Neutrophils % Seg Neuts % (Manual) Lymphocytes % (Manual) Monocytes % (Manual) Basophils % (Manual) Nucleated RBC % Seg Neutrophils # Seg Neutrophils # Man Lymphocytes # (Manual) Monocytes # (Manual) Eosinophils # (Manual) Basophils # (Manual) PT INR D-Dimer ABG pH ABG pO2 ABG HCO3 ABG O2 Saturation ABG Base Excess ABG Hemoglobin Oxyhemoglobin Sodium Potassium Chloride Carbon Dioxide BUN Creatinine Glucose POC Glucose 112 H 111 H Lactic Acid Calcium Magnesium Iron TIBC Ferritin AST ALT Lactate Dehydrogenase Troponin T C-Reactive Protein Total Protein Albumin Prealbumin Cholesterol LDL Cholesterol Direct HDL Cholesterol Urine WBC (Auto) Vancomycin Trough Coronavirus (PCR) Crossmatch 08/16/19 08/16/19 08/16/19 05:00 05:00 23:35 WBC RBC Hgb Hct MCV MCH MCHC RDW Plt Count Lymph % (Auto) [place] % (Auto) Lymph # [place] # Baso # Seg Neutrophils % Seg Neuts % (Manual) Lymphocytes % (Manual) Monocytes % (Manual) Basophils % (Manual) Nucleated RBC % Seg Neutrophils # Seg Neutrophils # Man Lymphocytes # (Manual) Monocytes # (Manual) Eosinophils # (Manual) Basophils # (Manual) PT INR D-Dimer ABG pH ABG pO2 ABG HCO3 ABG O2 Saturation ABG Base Excess ABG Hemoglobin Oxyhemoglobin Sodium 135 L Potassium Chloride Carbon Dioxide BUN 6 L Creatinine 0.3 L Glucose POC Glucose 108 H Lactic Acid Calcium 8.2 L Magnesium Iron TIBC Ferritin AST ALT Lactate Dehydrogenase Troponin T C-Reactive Protein 2.70 H Total Protein Albumin 2.1 L Prealbumin Cholesterol LDL Cholesterol Direct HDL Cholesterol Urine WBC (Auto) Vancomycin Trough Coronavirus (PCR) Crossmatch 08/17/19 08/17/19 08/17/19 05:15 20:20 23:42 WBC RBC Hgb Hct MCV MCH MCHC RDW Plt Count Lymph % (Auto) [place] % (Auto) Lymph # [place] # Baso # Seg Neutrophils % Seg Neuts % (Manual) Lymphocytes % (Manual) Monocytes % (Manual) Basophils % (Manual) Nucleated RBC % Seg Neutrophils # Seg Neutrophils # Man Lymphocytes # (Manual) Monocytes # (Manual) Eosinophils # (Manual) Basophils # (Manual) PT INR D-Dimer ABG pH ABG pO2 ABG HCO3 27.8 H ABG O2 Saturation ABG Base Excess ABG Hemoglobin 11.4 L Oxyhemoglobin 94.6 L Sodium Potassium Chloride Carbon Dioxide BUN Creatinine Glucose POC Glucose 138 H 132 H Lactic Acid Calcium Magnesium Iron TIBC Ferritin AST ALT Lactate Dehydrogenase Troponin T C-Reactive Protein Total Protein Albumin Prealbumin Cholesterol LDL Cholesterol Direct HDL Cholesterol Urine WBC (Auto) Vancomycin Trough Coronavirus (PCR) Crossmatch 08/18/19 08/18/19 08/18/19 06:00 06:00 12:02 WBC 19.7 H RBC 3.30 L Hgb 9.3 L Hct 28.5 L MCV MCH MCHC RDW 18.9 H Plt Count 923 H Lymph % (Auto) [place] % (Auto) Lymph # [place] # Baso # Seg Neutrophils % Seg Neuts % (Manual) Lymphocytes % (Manual) Monocytes % (Manual) Basophils % (Manual) Nucleated RBC % Seg Neutrophils # Seg Neutrophils # Man Lymphocytes # (Manual) Monocytes # (Manual) Eosinophils # (Manual) Basophils # (Manual) PT INR D-Dimer ABG pH ABG pO2 ABG HCO3 ABG O2 Saturation ABG Base Excess ABG Hemoglobin Oxyhemoglobin Sodium 136 L Potassium Chloride Carbon Dioxide BUN Creatinine 0.4 L Glucose 71 L POC Glucose 123 H Lactic Acid Calcium Magnesium Iron TIBC Ferritin AST ALT Lactate Dehydrogenase Troponin T C-Reactive Protein Total Protein Albumin Prealbumin Cholesterol LDL Cholesterol Direct HDL Cholesterol Urine WBC (Auto) Vancomycin Trough Coronavirus (PCR) Crossmatch 08/18/19 08/18/19 08/19/19 18:23 23:16 04:57 WBC RBC Hgb Hct MCV MCH MCHC RDW Plt Count Lymph % (Auto) [place] % (Auto) Lymph # [place] # Baso # Seg Neutrophils % Seg Neuts % (Manual) Lymphocytes % (Manual) Monocytes % (Manual) Basophils % (Manual) Nucleated RBC % Seg Neutrophils # Seg Neutrophils # Man Lymphocytes # (Manual) Monocytes # (Manual) Eosinophils # (Manual) Basophils # (Manual) PT INR D-Dimer ABG pH ABG pO2 ABG HCO3 ABG O2 Saturation ABG Base Excess ABG Hemoglobin Oxyhemoglobin Sodium Potassium Chloride Carbon Dioxide BUN Creatinine Glucose POC Glucose 140 H 159 H 134 H Lactic Acid Calcium Magnesium Iron TIBC Ferritin AST ALT Lactate Dehydrogenase Troponin T C-Reactive Protein Total Protein Albumin Prealbumin Cholesterol LDL Cholesterol Direct HDL Cholesterol Urine WBC (Auto) Vancomycin Trough Coronavirus (PCR) Crossmatch 08/19/19 08/19/19 08/19/19 07:44 08:17 18:15 WBC 30.5 H RBC 2.87 L Hgb 7.9 L Hct 24.5 L MCV MCH MCHC RDW 18.8 H Plt Count 772 H Lymph % (Auto) [place] % (Auto) Lymph # [place] # Baso # Seg Neutrophils % Seg Neuts % (Manual) 89.0 H Lymphocytes % (Manual) 4.0 L Monocytes % (Manual) Basophils % (Manual) 2.0 H Nucleated RBC % Seg Neutrophils # Seg Neutrophils # Man 27.1 H Lymphocytes # (Manual) Monocytes # (Manual) 0.9 H Eosinophils # (Manual) 0.6 H Basophils # (Manual) 0.6 H PT INR D-Dimer ABG pH ABG pO2 ABG HCO3 ABG O2 Saturation ABG Base Excess ABG Hemoglobin Oxyhemoglobin Sodium 136 L Potassium Chloride Carbon Dioxide BUN Creatinine 0.3 L Glucose POC Glucose 106 H Lactic Acid Calcium 8.2 L Magnesium Iron TIBC Ferritin AST ALT Lactate Dehydrogenase Troponin T C-Reactive Protein Total Protein Albumin Prealbumin Cholesterol LDL Cholesterol Direct HDL Cholesterol Urine WBC (Auto) Vancomycin Trough Coronavirus (PCR) Crossmatch 08/19/19 08/20/19 08/20/19 23:46 06:20 18:34 WBC RBC Hgb Hct MCV MCH MCHC RDW Plt Count Lymph % (Auto) [place] % (Auto) Lymph # [place] # Baso # Seg Neutrophils % Seg Neuts % (Manual) Lymphocytes % (Manual) Monocytes % (Manual) Basophils % (Manual) Nucleated RBC % Seg Neutrophils # Seg Neutrophils # Man Lymphocytes # (Manual) Monocytes # (Manual) Eosinophils # (Manual) Basophils # (Manual) PT INR D-Dimer ABG pH ABG pO2 ABG HCO3 ABG O2 Saturation ABG Base Excess ABG Hemoglobin Oxyhemoglobin Sodium Potassium Chloride Carbon Dioxide BUN Creatinine Glucose POC Glucose 144 H 115 H 125 H Lactic Acid Calcium Magnesium Iron TIBC Ferritin AST ALT Lactate Dehydrogenase Troponin T C-Reactive Protein Total Protein Albumin Prealbumin Cholesterol LDL Cholesterol Direct HDL Cholesterol Urine WBC (Auto) Vancomycin Trough Coronavirus (PCR) Crossmatch 08/20/19 08/20/19 08/21/19 Unknown Unknown 11:56 WBC 18.7 H RBC 2.70 L Hgb 7.6 L Hct 23.1 L MCV MCH MCHC RDW 18.9 H Plt Count 690 H Lymph % (Auto) [place] % (Auto) Lymph # [place] # Baso # Seg Neutrophils % Seg Neuts % (Manual) Lymphocytes % (Manual) Monocytes % (Manual) Basophils % (Manual) Nucleated RBC % Seg Neutrophils # Seg Neutrophils # Man Lymphocytes # (Manual) Monocytes # (Manual) Eosinophils # (Manual) Basophils # (Manual) PT INR D-Dimer ABG pH ABG pO2 ABG HCO3 ABG O2 Saturation ABG Base Excess ABG Hemoglobin Oxyhemoglobin Sodium 134 L Potassium Chloride 97.9 L Carbon Dioxide BUN Creatinine 0.3 L Glucose 115 H POC Glucose 116 H Lactic Acid Calcium 8.2 L Magnesium Iron TIBC Ferritin AST ALT Lactate Dehydrogenase Troponin T C-Reactive Protein Total Protein Albumin Prealbumin Cholesterol LDL Cholesterol Direct HDL Cholesterol Urine WBC (Auto) Vancomycin Trough Coronavirus (PCR) Crossmatch 08/21/19 08/22/19 08/22/19 18:14 00:31 05:53 WBC RBC Hgb Hct MCV MCH MCHC RDW Plt Count Lymph % (Auto) [place] % (Auto) Lymph # [place] # Baso # Seg Neutrophils % Seg Neuts % (Manual) Lymphocytes % (Manual) Monocytes % (Manual) Basophils % (Manual) Nucleated RBC % Seg Neutrophils # Seg Neutrophils # Man Lymphocytes # (Manual) Monocytes # (Manual) Eosinophils # (Manual) Basophils # (Manual) PT INR D-Dimer ABG pH ABG pO2 ABG HCO3 ABG O2 Saturation ABG Base Excess ABG Hemoglobin Oxyhemoglobin Sodium Potassium Chloride Carbon Dioxide BUN Creatinine Glucose POC Glucose 113 H 106 H 109 H Lactic Acid Calcium Magnesium Iron TIBC Ferritin AST ALT Lactate Dehydrogenase Troponin T C-Reactive Protein Total Protein Albumin Prealbumin Cholesterol LDL Cholesterol Direct HDL Cholesterol Urine WBC (Auto) Vancomycin Trough Coronavirus (PCR) Crossmatch 08/22/19 08/23/19 08/23/19 18:35 00:18 06:00 WBC 12.3 H RBC 2.92 L Hgb 8.0 L Hct 24.6 L MCV MCH MCHC RDW 18.5 H Plt Count 661 H Lymph % (Auto) 11.7 L [place] % (Auto) 9.2 H Lymph # [place] # 1.1 H Baso # Seg Neutrophils % 75.6 H Seg Neuts % (Manual) Lymphocytes % (Manual) Monocytes % (Manual) Basophils % (Manual) Nucleated RBC % Seg Neutrophils # 9.3 H Seg Neutrophils # Man Lymphocytes # (Manual) Monocytes # (Manual) Eosinophils # (Manual) Basophils # (Manual) PT INR D-Dimer ABG pH ABG pO2 ABG HCO3 ABG O2 Saturation ABG Base Excess ABG Hemoglobin Oxyhemoglobin Sodium Potassium Chloride Carbon Dioxide BUN Creatinine Glucose POC Glucose 130 H 124 H Lactic Acid Calcium Magnesium Iron TIBC Ferritin AST ALT Lactate Dehydrogenase Troponin T C-Reactive Protein Total Protein Albumin Prealbumin Cholesterol LDL Cholesterol Direct HDL Cholesterol Urine WBC (Auto) Vancomycin Trough Coronavirus (PCR) Crossmatch 08/23/19 08/23/19 08/24/19 06:09 17:46 00:04 WBC RBC Hgb Hct MCV MCH MCHC RDW Plt Count Lymph % (Auto) [place] % (Auto) Lymph # [place] # Baso # Seg Neutrophils % Seg Neuts % (Manual) Lymphocytes % (Manual) Monocytes % (Manual) Basophils % (Manual) Nucleated RBC % Seg Neutrophils # Seg Neutrophils # Man Lymphocytes # (Manual) Monocytes # (Manual) Eosinophils # (Manual) Basophils # (Manual) PT INR D-Dimer ABG pH ABG pO2 ABG HCO3 ABG O2 Saturation ABG Base Excess ABG Hemoglobin Oxyhemoglobin Sodium Potassium Chloride Carbon Dioxide BUN Creatinine Glucose POC Glucose 117 H 125 H 113 H Lactic Acid Calcium Magnesium Iron TIBC Ferritin AST ALT Lactate Dehydrogenase Troponin T C-Reactive Protein Total Protein Albumin Prealbumin Cholesterol LDL Cholesterol Direct HDL Cholesterol Urine WBC (Auto) Vancomycin Trough Coronavirus (PCR) Crossmatch 08/24/19 08/24/19 08/24/19 05:34 12:28 17:32 WBC RBC Hgb Hct MCV MCH MCHC RDW Plt Count Lymph % (Auto) [place] % (Auto) Lymph # [place] # Baso # Seg Neutrophils % Seg Neuts % (Manual) Lymphocytes % (Manual) Monocytes % (Manual) Basophils % (Manual) Nucleated RBC % Seg Neutrophils # Seg Neutrophils # Man Lymphocytes # (Manual) Monocytes # (Manual) Eosinophils # (Manual) Basophils # (Manual) PT INR D-Dimer ABG pH ABG pO2 ABG HCO3 ABG O2 Saturation ABG Base Excess ABG Hemoglobin Oxyhemoglobin Sodium Potassium Chloride Carbon Dioxide BUN Creatinine Glucose POC Glucose 128 H 127 H 116 H Lactic Acid Calcium Magnesium Iron TIBC Ferritin AST ALT Lactate Dehydrogenase Troponin T C-Reactive Protein Total Protein Albumin Prealbumin Cholesterol LDL Cholesterol Direct HDL Cholesterol Urine WBC (Auto) Vancomycin Trough Coronavirus (PCR) Crossmatch 08/24/19 08/25/19 08/25/19 23:41 05:37 12:30 WBC RBC Hgb Hct MCV MCH MCHC RDW Plt Count Lymph % (Auto) [place] % (Auto) Lymph # [place] # Baso # Seg Neutrophils % Seg Neuts % (Manual) Lymphocytes % (Manual) Monocytes % (Manual) Basophils % (Manual) Nucleated RBC % Seg Neutrophils # Seg Neutrophils # Man Lymphocytes # (Manual) Monocytes # (Manual) Eosinophils # (Manual) Basophils # (Manual) PT INR D-Dimer ABG pH ABG pO2 ABG HCO3 ABG O2 Saturation ABG Base Excess ABG Hemoglobin Oxyhemoglobin Sodium Potassium Chloride Carbon Dioxide BUN Creatinine Glucose POC Glucose 107 H 129 H 110 H Lactic Acid Calcium Magnesium Iron TIBC Ferritin AST ALT Lactate Dehydrogenase Troponin T C-Reactive Protein Total Protein Albumin Prealbumin Cholesterol LDL Cholesterol Direct HDL Cholesterol Urine WBC (Auto) Vancomycin Trough Coronavirus (PCR) Crossmatch 08/25/19 08/25/19 08/26/19 17:49 23:55 05:35 WBC RBC Hgb Hct MCV MCH MCHC RDW Plt Count Lymph % (Auto) [place] % (Auto) Lymph # [place] # Baso # Seg Neutrophils % Seg Neuts % (Manual) Lymphocytes % (Manual) Monocytes % (Manual) Basophils % (Manual) Nucleated RBC % Seg Neutrophils # Seg Neutrophils # Man Lymphocytes # (Manual) Monocytes # (Manual) Eosinophils # (Manual) Basophils # (Manual) PT INR D-Dimer ABG pH ABG pO2 ABG HCO3 ABG O2 Saturation ABG Base Excess ABG Hemoglobin Oxyhemoglobin Sodium Potassium Chloride Carbon Dioxide BUN Creatinine Glucose POC Glucose 107 H 137 H 117 H Lactic Acid Calcium Magnesium Iron TIBC Ferritin AST ALT Lactate Dehydrogenase Troponin T C-Reactive Protein Total Protein Albumin Prealbumin Cholesterol LDL Cholesterol Direct HDL Cholesterol Urine WBC (Auto) Vancomycin Trough Coronavirus (PCR) Crossmatch 08/27/19 08/27/19 08/27/19 00:59 06:01 07:21 WBC 11.6 H RBC 3.15 L Hgb 8.3 L Hct 26.1 L MCV 83 L MCH 26 L MCHC RDW 18.6 H Plt Count 743 H Lymph % (Auto) 11.8 L [place] % (Auto) 8.8 H Lymph # [place] # 1.0 H Baso # Seg Neutrophils % 75.3 H Seg Neuts % (Manual) Lymphocytes % (Manual) Monocytes % (Manual) Basophils % (Manual) Nucleated RBC % Seg Neutrophils # 8.7 H Seg Neutrophils # Man Lymphocytes # (Manual) Monocytes # (Manual) Eosinophils # (Manual) Basophils # (Manual) PT INR D-Dimer ABG pH ABG pO2 ABG HCO3 ABG O2 Saturation ABG Base Excess ABG Hemoglobin Oxyhemoglobin Sodium Potassium Chloride Carbon Dioxide BUN Creatinine Glucose POC Glucose 126 H 134 H Lactic Acid Calcium Magnesium Iron TIBC Ferritin AST ALT Lactate Dehydrogenase Troponin T C-Reactive Protein Total Protein Albumin Prealbumin Cholesterol LDL Cholesterol Direct HDL Cholesterol Urine WBC (Auto) Vancomycin Trough Coronavirus (PCR) Crossmatch 08/27/19 08/27/19 08/28/19 07:21 18:05 00:37 WBC RBC Hgb Hct MCV MCH MCHC RDW Plt Count Lymph % (Auto) [place] % (Auto) Lymph # [place] # Baso # Seg Neutrophils % Seg Neuts % (Manual) Lymphocytes % (Manual) Monocytes % (Manual) Basophils % (Manual) Nucleated RBC % Seg Neutrophils # Seg Neutrophils # Man Lymphocytes # (Manual) Monocytes # (Manual) Eosinophils # (Manual) Basophils # (Manual) PT INR D-Dimer ABG pH ABG pO2 ABG HCO3 ABG O2 Saturation ABG Base Excess ABG Hemoglobin Oxyhemoglobin Sodium 132 L Potassium 5.1 H Chloride 97.6 L Carbon Dioxide BUN Creatinine 0.3 L Glucose 119 H POC Glucose 127 H 106 H Lactic Acid Calcium Magnesium Iron TIBC Ferritin AST ALT Lactate Dehydrogenase Troponin T C-Reactive Protein Total Protein Albumin Prealbumin Cholesterol LDL Cholesterol Direct HDL Cholesterol Urine WBC (Auto) Vancomycin Trough Coronavirus (PCR) Crossmatch 08/28/19 08/29/19 18:14 00:01 WBC RBC Hgb Hct MCV MCH MCHC RDW Plt Count Lymph % (Auto) [place] % (Auto) Lymph # [place] # Baso # Seg Neutrophils % Seg Neuts % (Manual) Lymphocytes % (Manual) Monocytes % (Manual) Basophils % (Manual) Nucleated RBC % Seg Neutrophils # Seg Neutrophils # Man Lymphocytes # (Manual) Monocytes # (Manual) Eosinophils # (Manual) Basophils # (Manual) PT INR D-Dimer ABG pH ABG pO2 ABG HCO3 ABG O2 Saturation ABG Base Excess ABG Hemoglobin Oxyhemoglobin Sodium Potassium Chloride Carbon Dioxide BUN Creatinine Glucose POC Glucose 115 H 146 H Lactic Acid Calcium Magnesium Iron TIBC Ferritin AST ALT Lactate Dehydrogenase Troponin T C-Reactive Protein Total Protein Albumin Prealbumin Cholesterol LDL Cholesterol Direct HDL Cholesterol Urine WBC (Auto) Vancomycin Trough Coronavirus (PCR) Crossmatch Chest x-ray: image reviewed Allied health notes reviewed: nursing
--- NOTE | 2019-08-29 14:30 | Progress Note ---
Assessment and Plan 69 yo M with ileus 1. VDRF 2. COVID+ PNA 3. Worsening leukocytosis 4. Osteomyelitis of left ischium and sacrum, along with stage IV decubitus ulcers 5. Bedbound 6. Protein calorie malnutrition Patient has been in the hospital since 07/04/2019 and remains on the ventilator. He now has an ileus seen on multiple abdominal films. Plan: 1. Place NG tube to low intermittent wall suction for the next 24 to 48 hours. Hold tube feeding. 2. Check BMP tomorrow and replace electrolytes as needed 3. Dulcolax suppository 4. Ileus most likely due to prolonged period of immobility which is common with patients like this to have had a prolonged period of time on the ventilator. Continue to treat conservatively. Highly doubt true bowel obstruction. Thank you, please call with questions or concerns Subjective Date of service: 08/29/19 Narrative: Patient seen and examined. Reconsulted for ileus. The patient has not had a bowel movement in at least 5 days per records. Per discussion with nursing, the patient has not had a bowel movement in several days. For 5 days ago he had an episode of emesis however since then has been tolerating his tube feeds at goal. He has had minimal residual from his NG tube. Objective Vital Signs - 12hr 08/29/19 08/29/19 08/29/19 03:00 03:41 04:00 Temperature 97.8 F Pulse Rate 81 83 87 Pulse Rate [ 71 From Monitor] Respiratory 15 17 Rate Blood Pressure 107/61 107/61 105/60 O2 Sat by Pulse 99 100 99 Oximetry 08/29/19 08/29/19 08/29/19 05:00 06:00 07:00 Temperature Pulse Rate 83 80 81 Pulse Rate [ From Monitor] Respiratory 19 12 11 L Rate Blood Pressure 124/70 133/73 110/61 O2 Sat by Pulse 99 100 99 Oximetry 08/29/19 08/29/19 08/29/19 07:40 08:00 08:20 Temperature 99.3 F Pulse Rate 93 H 91 H Pulse Rate [ 92 H From Monitor] Respiratory 19 21 26 H Rate Blood Pressure 113/64 110/61 O2 Sat by Pulse 100 99 99 Oximetry 08/29/19 08/29/19 08/29/19 09:00 09:54 10:00 Temperature Pulse Rate 95 H 100 H 95 H Pulse Rate [ From Monitor] Respiratory 20 15 Rate Blood Pressure 105/62 108/60 117/63 O2 Sat by Pulse 100 99 Oximetry 08/29/19 08/29/19 08/29/19 11:00 12:00 12:15 Temperature 98.7 F Pulse Rate 89 91 H 89 Pulse Rate [ 93 H From Monitor] Respiratory 16 25 H 25 H Rate Blood Pressure 91/55 106/67 91/55 O2 Sat by Pulse 99 99 Oximetry 08/29/19 08/29/19 13:00 14:00 Temperature Pulse Rate 103 H 93 H Pulse Rate [ From Monitor] Respiratory 14 20 Rate Blood Pressure 109/53 108/65 O2 Sat by Pulse 100 97 Oximetry - General physical appearance Narrative Exam: General: Intubated, unresponsive. Does not follow commands ENT: NG tube and ET tube in place. CV: S1, S2 present Respiratory: No audible wheezes Abdomen: Soft, nontender, mildly distended. Tympanitic on percussion. Extremities: Severely contracted - Labs 08/27/19 07:21 08/27/19 07:21
--- NOTE | 2019-08-29 15:42 | Progress Note ---
Assessment and Plan Cultures: 07/03/2019 urine culture: No growth 07/03/2019 Tracheal aspirate: E.coli 07/29/2019 urine culture: neg 07/30/2019 blood culture: no growth tracheal asp + Pseudomonas 08/06/2019 blood culture: no growth 08/09/2019 Wound MDR Enterobacter 08/16/2019 blood culture: no growth to date 08/20/2019 COVID-19 PCR: negative A/P: 69-year-old male with CVA, hypertension, dementia, schizophrenia, alcohol use disorder was admitted to the emergency room after being brought in by EMS with progressive shortness of breath and unresponsiveness. He was noted to have agonal breathing and a faint pulse requiring CPR. It seems patient was on hospice recently, prior to admission. #Shock, likely septic: shock resolved, remains off pressors. still intermittent fever, leukocytosis worse again: bacterial pneumonia vs sacral decubitus infection. #Non-resolving pneumonia/Cavitary pneumonia: ? abscess. Sputum +Pseudomonas. CT shows RUL pneumonia with 2.4 cm cavity and LLL pneumonia with moderate left pleural effusion. No need for thoracentesis per Pulm. #Penile/scrotal and buttocks wounds: ?cellulitis #Sacral decubitus: worsening on last exam ? necrotic. Evaluated for surgery, no indications for intervention. 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 bleeding overnight s/p surgical management bedside, 08/09/2019 Wound MDR Enterobacter likely a colonizer (superficial wound cx) #UTI: per documentation initial carroll placed on 07/03, exchanged on 07/31. #Severe COVID-19 disease and pneumonia: Markers improving. Completed Plaquenil. Completed Ceftriaxone for treatment E.coli in tracheal aspirate. Repeat COVID finally negative on 08/20/2019. #Acute respiratory failure: remains on mechanical ventilation. #Multiple skin tears documented on admission #Anemia: from sacral wound bleeding Recs: Stop antibiotics, monitor off medication for now. Afebrile today. WBC though is trending down. Overall prognosis is extremely poor. Continue wound care Mekhi Barboza MD [facility] M: [phone] O: [phone] F: [phone] Subjective Date of service: 08/29/19 Principal diagnosis: Bilateral pneumonia, severe sepsis with septic shock, encephalopathy Interval history: Afebrile, no acute change today. Imaging personally reviewed: Abdominal x-ray: Stable ileus from yesterday. Objective - Exam Narrative Exam: Narrative Exam: Physical Exam (reviewed in chart due to PPE conservation) Constitutional: intubated, sedated, on the vent Head, Ears, Nose: normocephalic, atraumatic Eyes: limited due to PPE conservation strategy Neck: intubated Oral: intubated Cardiovascular: limited due to PPE conservation strategy Respiratory: limited due to PPE conservation strategy GI: limited due to PPE conservation strategy Musculoskeletal: limited due to PPE conservation strategy Skin: limited due to PPE conservation strategy. Decubitus + Hem/Lymphatic: limited due to PPE conservation strategy Psych: no agitation Neurological: sedated, intubated, on the vent, exam limited - Constitutional Vitals: Vital Signs Temp Pulse Resp BP Pulse Ox 98.7 F 93 H 20 108/65 97 08/29/19 12:00 08/29/19 15:26 08/29/19 15:26 08/29/19 15:26 08/29/19 15:26 Temperature -Last 24 Hours Temperature 98.7 F Temperature 99.3 F Temperature 97.8 F Temperature 97.7 F Temperature 97.7 F Temperature 97.6 F Temperature 98.3 F - Labs CBC & Chem 7: 08/27/19 07:21 08/27/19 07:21 Labs: Abnormal lab results 08/28/19 08/29/19 Range/Units 18:14 00:01 POC Glucose 115 H 146 H (70-105)
[2019-08-29] MEDS: POLYETHYLENE GLYCOL 3350 17 GM POWDER PO SCH (21:17)
[2019-08-30] MEDS: INSULIN LISPRO 100 UNIT/ML SUB-Q SCH ×4 (00:24→18:32)
[2019-08-30] MEDS: METOCLOPRAMIDE 10 MG/2 ML INJ IV SCH ×3 (05:25→22:37)
[2019-08-30 05:46] LABS: Basophils # (Auto) 0.1 K/mm3 (0.0-0.1); Basophils % (Auto) 0.6 % (0.0-1.8); Eosinophils # (Auto) 0.3 K/mm3 (0.0-0.4); Eosinophils % (Auto) 2.5 % (0.0-4.3); Hematocrit 25.1 % (35.5-45.6); Lymphocytes # (Auto) 1.1 K/mm3 (1.2-5.4); Lymphocytes % (Auto) 8.9 % (13.4-35.0); Mean Corpuscular HGB Conc 32 % (32-34); Mean Corpuscular Volume 84 fl (84-94); Monocytes # (Auto) 0.7 K/mm3 (0.0-0.8); Monocytes % (Auto) 5.3 % (0.0-7.3); Platelet Count 709 K/mm3 (140-440); Red Blood Count 3.01 M/mm3 (3.65-5.03); Red Cell Distribution Width 19.3 % (13.2-15.2)
[2019-08-30 06:00] LABS: Alanine Aminotransferase 22 units/L (7-56); Albumin 2.4 g/dL (3.9-5); BUN/Creatinine Ratio 40; Blood Urea Nitrogen 12 mg/dL (9-20); Calcium 9.3 mg/dL (8.4-10.2); Hemolysis Index 27
--- NOTE | 2019-08-30 09:44 | Progress Note ---
Assessment and Plan S/p Cardiopulmonary arrest with ROSC Severe Sepsis with septic shock. Acute hypoxemic respiratory failure on MVS COVID-19 positive with elevated markers Bilateral pneumonia Elevated LFTs. Oropharyngeal dysphagia s/p PEG Acute kidney injury Decubitus ulcers-unstageable Moderate protein calorie malnutriton [id number] metabolic acidosis Leukocytosis Thrombocytosis-worse Microcytic anemia Continue with PSV as tolerated, full support at night Surgery for trach and PEG placement- scheduled for 08/30 CBC, BMP, CXR and ABG prn Continue with NGT feeding with aspiration precautions, keep NPO after midnight Supportive transfusions to keep HgB >7g/dL Continue all care as documented Discharge planning - continue airborne and contact isolation for COVID-19 - continue wound care per WCT - sedation prn for target RASS 0 to -1 - continue to wean supplemental oxygen for target O2 sat's > 90% - Daily SAT's and SBT assessment as tolerated - VAP bundle addressed - continue lung protective strategies - continue bronchodilators with pulmonary hygiene per RT - wean per pulmonary driven protocols otherwise - accuchecks with glycemic control per SSI (While critically ill target blood glucose of 140-180 mg/dL; avoid hypoglycemia) - continue to avoid benzodiazepines, reduce the possibility of delirium - prn analgesia per CPOT score - Maintenance of sleep-wake cycle, avoid delirium - continue enteral nutritional support at goal rate as tolerated - VTE prophylaxis-Enoxaparin -Stress ulcer prophylaxis- Famotidine - PT/OT/ROM exercises - continue mobility protocol, off loading and skin assessment for pressure ulcer prevention - Monitor hemodynamics closely -Wright catheter in this critically ill patient with unstageable sacral decubitus ulcer - continue other care per attending / other consultants - discharge planning ongoing concurrently .... Re-evaluate in am & prn CONDITION: CRITICAL PROGNOSIS: GUARDED CODE STATUS: DNAR The high probability of a clinically significant, sudden or life-threatening deterioration of the [respiratory ,cardiovascular, neurology] system(s) required my full and direct attention, intervention and personal management. The aggregate critical care time was [31] minutes without overlap. Time includes spent on; [x] Data Review and interpretation [x] Patient assessment and monitoring of vital signs [x] Documentation [x] Medication orders and management Subjective Date of service: 08/30/19 Principal diagnosis: Bilateral pneumonia, severe sepsis with septic shock, encephalopathy Interval history: The patient is a 69-year-old male with CVA, hypertension, dementia, schizophrenia, alcohol use disorder was admitted to the emergency room after being brought in by EMS with progressive shortness of breath and unresponsiveness. He was noted to have agonal breathing and a faint pulse requiring CPR. Patient was intubated and brought to the hospital. It seems, patient was on home hospice. Currently, remains critically ill, intubated, on mechanical ventilation. His COVID test resulted positive. LATE ENTRY FOR 08/22/2019 Patient is seen today for: s/p cardiopulmonary arrest with ROSC; Ac hypoxemic Resp failure on MVS; Severe sepsis with Shock; Bilateral Pneumonia; POSITIVE coronavirus-19 infection. Seen and examined at bedside; 24hour events reviewed; nursing and respiratory care staff consulted; no adverse overnight events reported to me; resting in bed.No fevers; On MVS , tolerating daily PSV trials at this time; on fentanyl at 1mcg, off vasopressors Tolerating tube feedings, Mental status changes persist, will spontaneously open eyes COVID negative Objective Vital Signs - 12hr 08/29/19 08/29/19 08/29/19 22:00 23:00 23:20 Temperature Pulse Rate 97 H 85 77 Pulse Rate [ From Monitor] Respiratory 21 17 23 Rate Blood Pressure 113/68 110/63 110/63 O2 Sat by Pulse 99 99 100 Oximetry 08/30/19 08/30/19 08/30/19 00:00 00:27 01:00 Temperature 99.3 F Pulse Rate 80 79 81 Pulse Rate [ 81 From Monitor] Respiratory 15 12 Rate Blood Pressure 118/67 118/67 103/60 O2 Sat by Pulse 100 100 98 Oximetry 08/30/19 08/30/19 08/30/19 02:00 03:00 04:00 Temperature 98.9 F Pulse Rate 84 84 84 Pulse Rate [ 80 From Monitor] Respiratory 12 12 16 Rate Blood Pressure 111/66 111/66 114/62 O2 Sat by Pulse 100 99 100 Oximetry 08/30/19 08/30/19 08/30/19 05:00 06:00 08:00 Temperature 98.2 F Pulse Rate 80 65 Pulse Rate [ From Monitor] Respiratory 14 15 Rate Blood Pressure 114/62 96/57 O2 Sat by Pulse 100 100 Oximetry 08/30/19 08:15 Temperature Pulse Rate 65 Pulse Rate [ From Monitor] Respiratory 15 Rate Blood Pressure 96/57 O2 Sat by Pulse 100 Oximetry Constitutional: appears uncomfortable, other (eelderly and chronically ill looking AAM, normocep[krystina;ic with mildly increased respiratory effort at rest) Eyes: non-icteric ENT: oropharynx moist, other (ETT 24 cm RUTH) Neck: supple, no lymphadenopathy, no JVD Effort: mildly labored Ascultation: Bilateral: diminished breath sounds, rhonchi Percussion: Bilateral: not dull Cardiovascular: regular rate and rhythm Gastrointestinal: normoactive bowel sounds, soft, non-tender, non-distended, oth er (+ PEG tube with mild TF leakage) Integumentary: decubitus ulcer (sacral) Extremities: no cyanosis, no edema, pink and warm, pulses normal Neurologic: pupils equal and round, unable to assess Psychiatric: other (Unable to assess re: AMS) CBC and BMP: 08/30/19 05:10 08/30/19 05:10 ABG, PT/INR, D-dimer: ABG ABG pH 7.405 pH Units (7.350-7.450) 08/17/19 20:20 ABG pCO2 45.3 mm Hg 08/17/19 20:20 ABG pO2 84.2 mm Hg (80.0-90.0) 08/17/19 20:20 ABG O2 Saturation 96.9 % (95.0-99.0) 08/17/19 20:20 PT/INR, D-dimer PT 16.0 Sec. (12.2-14.9) H 07/03/19 22:20 INR 1.26 (0.87-1.13) H 07/03/19 22:20 D-Dimer 1808.06 ng/mlDDU (0-234) H 08/07/19 10:24 Abnormal lab findings: Abnormal Labs 07/03/19 07/03/19 07/03/19 19:57 21:10 21:13 WBC RBC Hgb Hct MCV MCH MCHC RDW Plt Count Lymph % (Auto) [place] % (Auto) Lymph # [place] # Baso # Seg Neutrophils % Seg Neuts % (Manual) Lymphocytes % (Manual) Monocytes % (Manual) Basophils % (Manual) Nucleated RBC % Seg Neutrophils # Seg Neutrophils # Man Lymphocytes # (Manual) Monocytes # (Manual) Eosinophils # (Manual) Basophils # (Manual) PT INR D-Dimer ABG pH 7.238 L ABG pO2 210.8 H ABG HCO3 15.4 L ABG O2 Saturation 99.2 H ABG Base Excess -11.1 L ABG Hemoglobin 8.0 L Oxyhemoglobin Sodium 124 L Potassium Chloride 92.9 L Carbon Dioxide 10 L BUN 23 H Creatinine 0.5 L Glucose 118 H POC Glucose Lactic Acid Calcium 7.0 L Magnesium Iron TIBC Ferritin AST 70 H ALT 88 H Lactate Dehydrogenase Troponin T 0.032 H C-Reactive Protein Total Protein 5.0 L Albumin 1.8 L Prealbumin Cholesterol 47 L LDL Cholesterol Direct 25 L HDL Cholesterol 20 L Urine WBC (Auto) 12.0 H Vancomycin Trough Coronavirus (PCR) Crossmatch 07/03/19 07/03/19 07/03/19 22:20 22:20 22:20 WBC 30.5 H RBC 2.96 L Hgb 7.7 L Hct 23.9 L MCV 81 L MCH 26 L MCHC RDW 18.6 H Plt Count 459 H Lymph % (Auto) [place] % (Auto) Lymph # [place] # Baso # Seg Neutrophils % Seg Neuts % (Manual) 93.0 H Lymphocytes % (Manual) 0.5 L Monocytes % (Manual) Basophils % (Manual) Nucleated RBC % Seg Neutrophils # Seg Neutrophils # Man 28.4 H Lymphocytes # (Manual) 0.2 L Monocytes # (Manual) Eosinophils # (Manual) Basophils # (Manual) PT 16.0 H INR 1.26 H D-Dimer ABG pH ABG pO2 ABG HCO3 ABG O2 Saturation ABG Base Excess ABG Hemoglobin Oxyhemoglobin Sodium Potassium Chloride Carbon Dioxide BUN Creatinine Glucose POC Glucose Lactic Acid 6.90 H* Calcium Magnesium Iron TIBC Ferritin AST ALT Lactate Dehydrogenase Troponin T C-Reactive Protein Total Protein Albumin Prealbumin Cholesterol LDL Cholesterol Direct HDL Cholesterol Urine WBC (Auto) Vancomycin Trough Coronavirus (PCR) Crossmatch 07/03/19 07/04/19 07/04/19 23:58 05:15 07:05 WBC 17.1 H RBC 3.22 L Hgb 8.3 L Hct 25.4 L MCV 79 L MCH 26 L MCHC RDW 18.6 H Plt Count Lymph % (Auto) [place] % (Auto) Lymph # [place] # Baso # Seg Neutrophils % Seg Neuts % (Manual) 74.0 H Lymphocytes % (Manual) 0 L Monocytes % (Manual) Basophils % (Manual) Nucleated RBC % Seg Neutrophils # Seg Neutrophils # Man 12.7 H Lymphocytes # (Manual) 0.0 L Monocytes # (Manual) Eosinophils # (Manual) Basophils # (Manual) PT INR D-Dimer ABG pH 7.310 L ABG pO2 73.2 L ABG HCO3 17.8 L ABG O2 Saturation 93.8 L ABG Base Excess -7.7 L ABG Hemoglobin 9.6 L Oxyhemoglobin 92.3 L Sodium Potassium Chloride Carbon Dioxide BUN Creatinine Glucose POC Glucose Lactic Acid 7.10 H* Calcium Magnesium Iron TIBC Ferritin AST ALT Lactate Dehydrogenase Troponin T C-Reactive Protein Total Protein Albumin Prealbumin Cholesterol LDL Cholesterol Direct HDL Cholesterol Urine WBC (Auto) Vancomycin Trough Coronavirus (PCR) Crossmatch 07/04/19 07/04/19 07/04/19 07:05 07:05 07:05 WBC RBC Hgb Hct MCV MCH MCHC RDW Plt Count Lymph % (Auto) [place] % (Auto) Lymph # [place] # Baso # Seg Neutrophils % Seg Neuts % (Manual) Lymphocytes % (Manual) Monocytes % (Manual) Basophils % (Manual) Nucleated RBC % Seg Neutrophils # Seg Neutrophils # Man Lymphocytes # (Manual) Monocytes # (Manual) Eosinophils # (Manual) Basophils # (Manual) PT INR D-Dimer ABG pH ABG pO2 ABG HCO3 ABG O2 Saturation ABG Base Excess ABG Hemoglobin Oxyhemoglobin Sodium 120 L Potassium 5.1 H Chloride 90.0 L Carbon Dioxide 14 L BUN 26 H Creatinine 0.5 L Glucose POC Glucose Lactic Acid 3.30 H* Calcium 8.0 L Magnesium Iron 9 L TIBC 97 L Ferritin AST 73 H ALT 91 H Lactate Dehydrogenase Troponin T C-Reactive Protein Total Protein 5.5 L Albumin 2.0 L Prealbumin Cholesterol LDL Cholesterol Direct HDL Cholesterol Urine WBC (Auto) Vancomycin Trough Coronavirus (PCR) Crossmatch 07/04/19 07/04/19 07/04/19 09:39 09:39 09:39 WBC RBC Hgb Hct MCV MCH MCHC RDW Plt Count Lymph % (Auto) [place] % (Auto) Lymph # [place] # Baso # Seg Neutrophils % Seg Neuts % (Manual) Lymphocytes % (Manual) Monocytes % (Manual) Basophils % (Manual) Nucleated RBC % Seg Neutrophils # Seg Neutrophils # Man Lymphocytes # (Manual) Monocytes # (Manual) Eosinophils # (Manual) Basophils # (Manual) PT INR D-Dimer 1419.14 H ABG pH ABG pO2 ABG HCO3 ABG O2 Saturation ABG Base Excess ABG Hemoglobin Oxyhemoglobin Sodium Potassium Chloride Carbon Dioxide BUN Creatinine Glucose POC Glucose Lactic Acid Calcium Magnesium Iron TIBC Ferritin 1719.0 H AST ALT Lactate Dehydrogenase 234 H Troponin T C-Reactive Protein 15.50 H Total Protein Albumin Prealbumin Cholesterol LDL Cholesterol Direct HDL Cholesterol Urine WBC (Auto) Vancomycin Trough Coronavirus (PCR) Crossmatch 07/04/19 07/04/19 07/04/19 10:09 18:08 18:28 WBC RBC Hgb Hct MCV MCH MCHC RDW Plt Count Lymph % (Auto) [place] % (Auto) Lymph # [place] # Baso # Seg Neutrophils % Seg Neuts % (Manual) Lymphocytes % (Manual) Monocytes % (Manual) Basophils % (Manual) Nucleated RBC % Seg Neutrophils # Seg Neutrophils # Man Lymphocytes # (Manual) Monocytes # (Manual) Eosinophils # (Manual) Basophils # (Manual) PT INR D-Dimer ABG pH ABG pO2 ABG HCO3 ABG O2 Saturation ABG Base Excess ABG Hemoglobin Oxyhemoglobin Sodium 117 L* Potassium 5.6 H Chloride 90.3 L Carbon Dioxide 16 L BUN 28 H Creatinine 0.5 L Glucose 58 L POC Glucose 65 L Lactic Acid Calcium 8.2 L Magnesium Iron TIBC Ferritin AST ALT Lactate Dehydrogenase Troponin T C-Reactive Protein Total Protein Albumin Prealbumin Cholesterol LDL Cholesterol Direct HDL Cholesterol Urine WBC (Auto) Vancomycin Trough Coronavirus (PCR) Positive A Crossmatch 07/04/19 07/04/19 07/04/19 23:45 Unknown Unknown WBC RBC Hgb Hct MCV MCH MCHC RDW Plt Count Lymph % (Auto) [place] % (Auto) Lymph # [place] # Baso # Seg Neutrophils % Seg Neuts % (Manual) Lymphocytes % (Manual) Monocytes % (Manual) Basophils % (Manual) Nucleated RBC % Seg Neutrophils # Seg Neutrophils # Man Lymphocytes # (Manual) Monocytes # (Manual) Eosinophils # (Manual) Basophils # (Manual) PT INR D-Dimer 759.77 H ABG pH ABG pO2 ABG HCO3 ABG O2 Saturation ABG Base Excess ABG Hemoglobin Oxyhemoglobin Sodium 122 L Potassium Chloride 93.0 L Carbon Dioxide 19 L BUN 27 H Creatinine 0.5 L Glucose POC Glucose Lactic Acid Calcium 8.3 L Magnesium Iron TIBC Ferritin 1301.0 H AST ALT Lactate Dehydrogenase Troponin T C-Reactive Protein Total Protein Albumin Prealbumin Cholesterol LDL Cholesterol Direct HDL Cholesterol Urine WBC (Auto) Vancomycin Trough Coronavirus (PCR) Crossmatch 07/04/19 07/05/19 07/05/19 Unknown 03:20 04:00 WBC RBC Hgb Hct MCV MCH MCHC RDW Plt Count Lymph % (Auto) [place] % (Auto) Lymph # [place] # Baso # Seg Neutrophils % Seg Neuts % (Manual) Lymphocytes % (Manual) Monocytes % (Manual) Basophils % (Manual) Nucleated RBC % Seg Neutrophils # Seg Neutrophils # Man Lymphocytes # (Manual) Monocytes # (Manual) Eosinophils # (Manual) Basophils # (Manual) PT INR D-Dimer ABG pH ABG pO2 60.6 L ABG HCO3 ABG O2 Saturation 93.5 L ABG Base Excess -2.4 L ABG Hemoglobin 6.9 L Oxyhemoglobin 92.0 L Sodium 125 L Potassium Chloride 92.6 L Carbon Dioxide 19 L BUN 24 H Creatinine 0.6 L Glucose POC Glucose Lactic Acid Calcium 8.2 L Magnesium 1.40 L Iron TIBC Ferritin AST ALT Lactate Dehydrogenase 242 H Troponin T C-Reactive Protein 16.70 H Total Protein Albumin Prealbumin Cholesterol LDL Cholesterol Direct HDL Cholesterol Urine WBC (Auto) Vancomycin Trough Coronavirus (PCR) Crossmatch 07/05/19 07/05/19 07/05/19 10:11 16:15 17:54 WBC 46.4 H* RBC 2.77 L Hgb 7.2 L Hct 21.9 L MCV 79 L MCH 26 L MCHC RDW 19.0 H Plt Count Lymph % (Auto) [place] % (Auto) Lymph # [place] # Baso # Seg Neutrophils % Seg Neuts % (Manual) 82.0 H Lymphocytes % (Manual) 1.0 L Monocytes % (Manual) Basophils % (Manual) Nucleated RBC % Seg Neutrophils # Seg Neutrophils # Man 38.0 H Lymphocytes # (Manual) 0.5 L Monocytes # (Manual) Eosinophils # (Manual) Basophils # (Manual) PT INR D-Dimer ABG pH ABG pO2 ABG HCO3 ABG O2 Saturation ABG Base Excess ABG Hemoglobin Oxyhemoglobin Sodium Potassium Chloride Carbon Dioxide BUN Creatinine Glucose POC Glucose 69 L Lactic Acid Calcium Magnesium Iron TIBC Ferritin AST ALT Lactate Dehydrogenase Troponin T C-Reactive Protein Total Protein Albumin Prealbumin Cholesterol LDL Cholesterol Direct HDL Cholesterol Urine WBC (Auto) Vancomycin Trough 23.2 H Coronavirus (PCR) Crossmatch 07/05/19 07/06/19 07/06/19 19:58 00:27 00:27 WBC RBC Hgb Hct MCV MCH MCHC RDW Plt Count Lymph % (Auto) [place] % (Auto) Lymph # [place] # Baso # Seg Neutrophils % Seg Neuts % (Manual) Lymphocytes % (Manual) Monocytes % (Manual) Basophils % (Manual) Nucleated RBC % Seg Neutrophils # Seg Neutrophils # Man Lymphocytes # (Manual) Monocytes # (Manual) Eosinophils # (Manual) Basophils # (Manual) PT INR D-Dimer 1333.22 H ABG pH ABG pO2 ABG HCO3 ABG O2 Saturation ABG Base Excess ABG Hemoglobin Oxyhemoglobin Sodium 127 L Potassium Chloride Carbon Dioxide BUN Creatinine Glucose POC Glucose Lactic Acid Calcium Magnesium Iron TIBC Ferritin 977.1 H AST ALT Lactate Dehydrogenase Troponin T C-Reactive Protein Total Protein Albumin Prealbumin Cholesterol LDL Cholesterol Direct HDL Cholesterol Urine WBC (Auto) Vancomycin Trough Coronavirus (PCR) Crossmatch 07/06/19 07/06/19 07/06/19 00:27 02:00 02:56 WBC RBC Hgb Hct MCV MCH MCHC RDW Plt Count Lymph % (Auto) [place] % (Auto) Lymph # [place] # Baso # Seg Neutrophils % Seg Neuts % (Manual) Lymphocytes % (Manual) Monocytes % (Manual) Basophils % (Manual) Nucleated RBC % Seg Neutrophils # Seg Neutrophils # Man Lymphocytes # (Manual) Monocytes # (Manual) Eosinophils # (Manual) Basophils # (Manual) PT INR D-Dimer ABG pH ABG pO2 70.3 L ABG HCO3 ABG O2 Saturation 94.8 L ABG Base Excess ABG Hemoglobin 8.0 L Oxyhemoglobin 93.2 L Sodium Potassium Chloride Carbon Dioxide BUN Creatinine Glucose POC Glucose 117 H Lactic Acid Calcium Magnesium Iron TIBC Ferritin AST ALT Lactate Dehydrogenase 236 H Troponin T C-Reactive Protein 22.90 H Total Protein Albumin Prealbumin Cholesterol LDL Cholesterol Direct HDL Cholesterol Urine WBC (Auto) Vancomycin Trough Coronavirus (PCR) Crossmatch 07/06/19 07/06/19 07/06/19 03:49 03:49 07:40 WBC 38.8 H RBC 2.51 L Hgb 6.7 L Hct 19.9 L* MCV 79 L MCH 27 L MCHC RDW 19.2 H Plt Count Lymph % (Auto) [place] % (Auto) Lymph # [place] # Baso # Seg Neutrophils % Seg Neuts % (Manual) 90.5 H Lymphocytes % (Manual) 1.0 L Monocytes % (Manual) Basophils % (Manual) Nucleated RBC % Seg Neutrophils # Seg Neutrophils # Man 35.1 H Lymphocytes # (Manual) 0.4 L Monocytes # (Manual) Eosinophils # (Manual) Basophils # (Manual) PT INR D-Dimer ABG pH ABG pO2 ABG HCO3 ABG O2 Saturation ABG Base Excess ABG Hemoglobin Oxyhemoglobin Sodium 131 L Potassium Chloride 96.9 L Carbon Dioxide 18 L BUN 23 H Creatinine 0.5 L Glucose POC Glucose Lactic Acid Calcium 8.0 L Magnesium Iron TIBC Ferritin AST ALT Lactate Dehydrogenase Troponin T C-Reactive Protein Total Protein Albumin Prealbumin Cholesterol LDL Cholesterol Direct HDL Cholesterol Urine WBC (Auto) Vancomycin Trough Coronavirus (PCR) Crossmatch See Detail 07/06/19 07/06/19 07/06/19 12:38 14:39 20:00 WBC RBC Hgb Hct MCV MCH MCHC RDW Plt Count Lymph % (Auto) [place] % (Auto) Lymph # [place] # Baso # Seg Neutrophils % Seg Neuts % (Manual) Lymphocytes % (Manual) Monocytes % (Manual) Basophils % (Manual) Nucleated RBC % Seg Neutrophils # Seg Neutrophils # Man Lymphocytes # (Manual) Monocytes # (Manual) Eosinophils # (Manual) Basophils # (Manual) PT INR D-Dimer ABG pH ABG pO2 ABG HCO3 ABG O2 Saturation ABG Base Excess ABG Hemoglobin Oxyhemoglobin Sodium Potassium Chloride Carbon Dioxide BUN Creatinine Glucose POC Glucose 112 H 111 H 140 H Lactic Acid Calcium Magnesium Iron TIBC Ferritin AST ALT Lactate Dehydrogenase Troponin T C-Reactive Protein Total Protein Albumin Prealbumin Cholesterol LDL Cholesterol Direct HDL Cholesterol Urine WBC (Auto) Vancomycin Trough Coronavirus (PCR) Crossmatch 07/06/19 07/06/19 07/07/19 22:43 22:56 02:20 WBC RBC Hgb 7.9 L Hct 23.1 L MCV MCH MCHC RDW Plt Count Lymph % (Auto) [place] % (Auto) Lymph # [place] # Baso # Seg Neutrophils % Seg Neuts % (Manual) Lymphocytes % (Manual) Monocytes % (Manual) Basophils % (Manual) Nucleated RBC % Seg Neutrophils # Seg Neutrophils # Man Lymphocytes # (Manual) Monocytes # (Manual) Eosinophils # (Manual) Basophils # (Manual) PT INR D-Dimer ABG pH ABG pO2 ABG HCO3 ABG O2 Saturation ABG Base Excess ABG Hemoglobin Oxyhemoglobin Sodium Potassium Chloride Carbon Dioxide BUN Creatinine Glucose POC Glucose 122 H 149 H Lactic Acid Calcium Magnesium Iron TIBC Ferritin AST ALT Lactate Dehydrogenase Troponin T C-Reactive Protein Total Protein Albumin Prealbumin Cholesterol LDL Cholesterol Direct HDL Cholesterol Urine WBC (Auto) Vancomycin Trough Coronavirus (PCR) Crossmatch 07/07/19 07/07/19 07/07/19 04:35 05:27 05:34 WBC 23.1 H RBC 3.00 L Hgb 8.1 L Hct 24.2 L MCV 81 L MCH 27 L MCHC RDW 20.6 H Plt Count Lymph % (Auto) [place] % (Auto) Lymph # [place] # Baso # Seg Neutrophils % Seg Neuts % (Manual) 90.0 H Lymphocytes % (Manual) 2.0 L Monocytes % (Manual) Basophils % (Manual) Nucleated RBC % Seg Neutrophils # Seg Neutrophils # Man 20.8 H Lymphocytes # (Manual) 0.5 L Monocytes # (Manual) Eosinophils # (Manual) Basophils # (Manual) PT INR D-Dimer ABG pH ABG pO2 65.8 L ABG HCO3 ABG O2 Saturation 92.2 L ABG Base Excess ABG Hemoglobin 8.3 L Oxyhemoglobin 90.6 L Sodium Potassium Chloride Carbon Dioxide BUN Creatinine Glucose POC Glucose 132 H Lactic Acid Calcium Magnesium Iron TIBC Ferritin AST ALT Lactate Dehydrogenase Troponin T C-Reactive Protein Total Protein Albumin Prealbumin Cholesterol LDL Cholesterol Direct HDL Cholesterol Urine WBC (Auto) Vancomycin Trough Coronavirus (PCR) Crossmatch 07/07/19 07/07/19 07/07/19 05:34 11:50 15:58 WBC RBC Hgb 8.1 L Hct 24.2 L MCV MCH MCHC RDW Plt Count Lymph % (Auto) [place] % (Auto) Lymph # [place] # Baso # Seg Neutrophils % Seg Neuts % (Manual) Lymphocytes % (Manual) Monocytes % (Manual) Basophils % (Manual) Nucleated RBC % Seg Neutrophils # Seg Neutrophils # Man Lymphocytes # (Manual) Monocytes # (Manual) Eosinophils # (Manual) Basophils # (Manual) PT INR D-Dimer ABG pH ABG pO2 ABG HCO3 ABG O2 Saturation ABG Base Excess ABG Hemoglobin Oxyhemoglobin Sodium 135 L Potassium 3.3 L Chloride Carbon Dioxide 20 L BUN 27 H Creatinine 0.6 L Glucose 121 H POC Glucose 123 H Lactic Acid Calcium 8.0 L Magnesium Iron TIBC Ferritin AST ALT Lactate Dehydrogenase Troponin T C-Reactive Protein Total Protein Albumin Prealbumin Cholesterol LDL Cholesterol Direct HDL Cholesterol Urine WBC (Auto) Vancomycin Trough Coronavirus (PCR) Crossmatch 07/07/19 07/07/19 07/07/19 17:42 22:00 23:53 WBC RBC Hgb 8.0 L Hct 23.4 L MCV MCH MCHC RDW Plt Count Lymph % (Auto) [place] % (Auto) Lymph # [place] # Baso # Seg Neutrophils % Seg Neuts % (Manual) Lymphocytes % (Manual) Monocytes % (Manual) Basophils % (Manual) Nucleated RBC % Seg Neutrophils # Seg Neutrophils # Man Lymphocytes # (Manual) Monocytes # (Manual) Eosinophils # (Manual) Basophils # (Manual) PT INR D-Dimer ABG pH ABG pO2 ABG HCO3 ABG O2 Saturation ABG Base Excess ABG Hemoglobin Oxyhemoglobin Sodium Potassium Chloride Carbon Dioxide BUN Creatinine Glucose POC Glucose 107 H 117 H Lactic Acid Calcium Magnesium Iron TIBC Ferritin AST ALT Lactate Dehydrogenase Troponin T C-Reactive Protein Total Protein Albumin Prealbumin Cholesterol LDL Cholesterol Direct HDL Cholesterol Urine WBC (Auto) Vancomycin Trough Coronavirus (PCR) Crossmatch 07/08/19 07/08/19 07/08/19 00:45 00:45 00:45 WBC RBC Hgb Hct MCV MCH MCHC RDW Plt Count Lymph % (Auto) [place] % (Auto) Lymph # [place] # Baso # Seg Neutrophils % Seg Neuts % (Manual) Lymphocytes % (Manual) Monocytes % (Manual) Basophils % (Manual) Nucleated RBC % Seg Neutrophils # Seg Neutrophils # Man Lymphocytes # (Manual) Monocytes # (Manual) Eosinophils # (Manual) Basophils # (Manual) PT INR D-Dimer 1142.18 H ABG pH ABG pO2 ABG HCO3 ABG O2 Saturation ABG Base Excess ABG Hemoglobin Oxyhemoglobin Sodium Potassium Chloride Carbon Dioxide BUN Creatinine Glucose POC Glucose Lactic Acid Calcium Magnesium Iron TIBC Ferritin 839.0 H AST ALT Lactate Dehydrogenase 253 H Troponin T C-Reactive Protein 18.90 H Total Protein Albumin Prealbumin Cholesterol LDL Cholesterol Direct HDL Cholesterol Urine WBC (Auto) Vancomycin Trough Coronavirus (PCR) Crossmatch 07/08/19 07/08/19 07/08/19 04:30 05:11 12:02 WBC RBC Hgb Hct MCV MCH MCHC RDW Plt Count Lymph % (Auto) [place] % (Auto) Lymph # [place] # Baso # Seg Neutrophils % Seg Neuts % (Manual) Lymphocytes % (Manual) Monocytes % (Manual) Basophils % (Manual) Nucleated RBC % Seg Neutrophils # Seg Neutrophils # Man Lymphocytes # (Manual) Monocytes # (Manual) Eosinophils # (Manual) Basophils # (Manual) PT INR D-Dimer ABG pH ABG pO2 66.0 L ABG HCO3 ABG O2 Saturation 92.3 L ABG Base Excess ABG Hemoglobin 7.7 L Oxyhemoglobin 90.7 L Sodium Potassium Chloride Carbon Dioxide BUN Creatinine Glucose POC Glucose 108 H 153 H Lactic Acid Calcium Magnesium Iron TIBC Ferritin AST ALT Lactate Dehydrogenase Troponin T C-Reactive Protein Total Protein Albumin Prealbumin Cholesterol LDL Cholesterol Direct HDL Cholesterol Urine WBC (Auto) Vancomycin Trough Coronavirus (PCR) Crossmatch 07/08/19 07/08/19 07/08/19 16:15 18:22 23:35 WBC RBC Hgb Hct MCV MCH MCHC RDW Plt Count Lymph % (Auto) [place] % (Auto) Lymph # [place] # Baso # Seg Neutrophils % Seg Neuts % (Manual) Lymphocytes % (Manual) Monocytes % (Manual) Basophils % (Manual) Nucleated RBC % Seg Neutrophils # Seg Neutrophils # Man Lymphocytes # (Manual) Monocytes # (Manual) Eosinophils # (Manual) Basophils # (Manual) PT INR D-Dimer ABG pH ABG pO2 ABG HCO3 ABG O2 Saturation ABG Base Excess ABG Hemoglobin Oxyhemoglobin Sodium 134 L Potassium 3.3 L Chloride Carbon Dioxide 21 L BUN 27 H Creatinine 0.6 L Glucose 146 H POC Glucose 134 H 133 H Lactic Acid Calcium Magnesium Iron TIBC Ferritin AST ALT Lactate Dehydrogenase Troponin T C-Reactive Protein Total Protein Albumin Prealbumin Cholesterol LDL Cholesterol Direct HDL Cholesterol Urine WBC (Auto) Vancomycin Trough Coronavirus (PCR) Crossmatch 07/09/19 07/09/19 07/09/19 04:30 04:30 05:00 WBC 18.9 H RBC 2.77 L Hgb 7.4 L Hct 22.8 L MCV 82 L MCH 27 L MCHC RDW 20.9 H Plt Count 130 L Lymph % (Auto) [place] % (Auto) Lymph # [place] # Baso # Seg Neutrophils % Seg Neuts % (Manual) 84.0 H Lymphocytes % (Manual) 0 L Monocytes % (Manual) Basophils % (Manual) Nucleated RBC % Seg Neutrophils # Seg Neutrophils # Man 15.9 H Lymphocytes # (Manual) 0.0 L Monocytes # (Manual) Eosinophils # (Manual) Basophils # (Manual) PT INR D-Dimer ABG pH ABG pO2 ABG HCO3 ABG O2 Saturation ABG Base Excess ABG Hemoglobin Oxyhemoglobin Sodium Potassium 3.1 L Chloride Carbon Dioxide BUN 26 H Creatinine 0.5 L Glucose 125 H POC Glucose 155 H Lactic Acid Calcium Magnesium Iron TIBC Ferritin AST ALT Lactate Dehydrogenase Troponin T C-Reactive Protein Total Protein Albumin Prealbumin Cholesterol LDL Cholesterol Direct HDL Cholesterol Urine WBC (Auto) Vancomycin Trough Coronavirus (PCR) Crossmatch 07/09/19 07/09/19 07/09/19 05:55 12:22 17:50 WBC RBC Hgb Hct MCV MCH MCHC RDW Plt Count Lymph % (Auto) [place] % (Auto) Lymph # [place] # Baso # Seg Neutrophils % Seg Neuts % (Manual) Lymphocytes % (Manual) Monocytes % (Manual) Basophils % (Manual) Nucleated RBC % Seg Neutrophils # Seg Neutrophils # Man Lymphocytes # (Manual) Monocytes # (Manual) Eosinophils # (Manual) Basophils # (Manual) PT INR D-Dimer ABG pH ABG pO2 62.8 L ABG HCO3 ABG O2 Saturation ABG Base Excess ABG Hemoglobin 6.1 L Oxyhemoglobin 93.9 L Sodium Potassium Chloride Carbon Dioxide BUN Creatinine Glucose POC Glucose 115 H 133 H Lactic Acid Calcium Magnesium Iron TIBC Ferritin AST ALT Lactate Dehydrogenase Troponin T C-Reactive Protein Total Protein Albumin Prealbumin Cholesterol LDL Cholesterol Direct HDL Cholesterol Urine WBC (Auto) Vancomycin Trough Coronavirus (PCR) Crossmatch 07/10/19 07/10/19 07/10/19 00:38 04:00 04:00 WBC RBC Hgb Hct MCV MCH MCHC RDW Plt Count Lymph % (Auto) [place] % (Auto) Lymph # [place] # Baso # Seg Neutrophils % Seg Neuts % (Manual) Lymphocytes % (Manual) Monocytes % (Manual) Basophils % (Manual) Nucleated RBC % Seg Neutrophils # Seg Neutrophils # Man Lymphocytes # (Manual) Monocytes # (Manual) Eosinophils # (Manual) Basophils # (Manual) PT INR D-Dimer ABG pH ABG pO2 ABG HCO3 ABG O2 Saturation ABG Base Excess ABG Hemoglobin Oxyhemoglobin Sodium Potassium Chloride 107.9 H Carbon Dioxide BUN 26 H Creatinine 0.4 L Glucose 137 H POC Glucose 122 H Lactic Acid Calcium Magnesium 1.50 L Iron TIBC Ferritin AST ALT Lactate Dehydrogenase 277 H Troponin T C-Reactive Protein 15.10 H Total Protein Albumin Prealbumin Cholesterol LDL Cholesterol Direct HDL Cholesterol Urine WBC (Auto) Vancomycin Trough Coronavirus (PCR) Crossmatch 07/10/19 07/10/19 07/10/19 04:07 05:21 17:25 WBC RBC Hgb Hct MCV MCH MCHC RDW Plt Count Lymph % (Auto) [place] % (Auto) Lymph # [place] # Baso # Seg Neutrophils % Seg Neuts % (Manual) Lymphocytes % (Manual) Monocytes % (Manual) Basophils % (Manual) Nucleated RBC % Seg Neutrophils # Seg Neutrophils # Man Lymphocytes # (Manual) Monocytes # (Manual) Eosinophils # (Manual) Basophils # (Manual) PT INR D-Dimer ABG pH ABG pO2 65.6 L ABG HCO3 26.3 H ABG O2 Saturation ABG Base Excess ABG Hemoglobin 6.7 L Oxyhemoglobin Sodium Potassium Chloride Carbon Dioxide BUN Creatinine Glucose POC Glucose 144 H 113 H Lactic Acid Calcium Magnesium Iron TIBC Ferritin AST ALT Lactate Dehydrogenase Troponin T C-Reactive Protein Total Protein Albumin Prealbumin Cholesterol LDL Cholesterol Direct HDL Cholesterol Urine WBC (Auto) Vancomycin Trough Coronavirus (PCR) Crossmatch 07/11/19 07/11/19 07/11/19 00:07 05:14 05:25 WBC RBC Hgb Hct MCV MCH MCHC RDW Plt Count Lymph % (Auto) [place] % (Auto) Lymph # [place] # Baso # Seg Neutrophils % Seg Neuts % (Manual) Lymphocytes % (Manual) Monocytes % (Manual) Basophils % (Manual) Nucleated RBC % Seg Neutrophils # Seg Neutrophils # Man Lymphocytes # (Manual) Monocytes # (Manual) Eosinophils # (Manual) Basophils # (Manual) PT INR D-Dimer ABG pH ABG pO2 ABG HCO3 ABG O2 Saturation ABG Base Excess ABG Hemoglobin 5.8 L Oxyhemoglobin Sodium Potassium Chloride 108.0 H Carbon Dioxide BUN 26 H Creatinine 0.4 L Glucose 110 H POC Glucose 121 H Lactic Acid Calcium Magnesium Iron TIBC Ferritin AST ALT Lactate Dehydrogenase Troponin T C-Reactive Protein Total Protein Albumin Prealbumin Cholesterol LDL Cholesterol Direct HDL Cholesterol Urine WBC (Auto) Vancomycin Trough Coronavirus (PCR) Crossmatch 07/11/19 07/11/19 07/11/19 12:27 18:00 23:42 WBC RBC Hgb Hct MCV MCH MCHC RDW Plt Count Lymph % (Auto) [place] % (Auto) Lymph # [place] # Baso # Seg Neutrophils % Seg Neuts % (Manual) Lymphocytes % (Manual) Monocytes % (Manual) Basophils % (Manual) Nucleated RBC % Seg Neutrophils # Seg Neutrophils # Man Lymphocytes # (Manual) Monocytes # (Manual) Eosinophils # (Manual) Basophils # (Manual) PT INR D-Dimer ABG pH ABG pO2 ABG HCO3 ABG O2 Saturation ABG Base Excess ABG Hemoglobin Oxyhemoglobin Sodium Potassium Chloride Carbon Dioxide BUN Creatinine Glucose POC Glucose 158 H 141 H 142 H Lactic Acid Calcium Magnesium Iron TIBC Ferritin AST ALT Lactate Dehydrogenase Troponin T C-Reactive Protein Total Protein Albumin Prealbumin Cholesterol LDL Cholesterol Direct HDL Cholesterol Urine WBC (Auto) Vancomycin Trough Coronavirus (PCR) Crossmatch 07/12/19 07/12/19 07/12/19 04:46 04:46 05:23 WBC 23.6 H RBC 2.51 L Hgb 6.7 L Hct 20.8 L MCV 83 L MCH 27 L MCHC RDW 20.3 H Plt Count Lymph % (Auto) [place] % (Auto) Lymph # [place] # Baso # Seg Neutrophils % Seg Neuts % (Manual) 94.0 H Lymphocytes % (Manual) 4.0 L Monocytes % (Manual) Basophils % (Manual) Nucleated RBC % Seg Neutrophils # Seg Neutrophils # Man 22.2 H Lymphocytes # (Manual) 0.9 L Monocytes # (Manual) Eosinophils # (Manual) Basophils # (Manual) PT INR D-Dimer ABG pH ABG pO2 ABG HCO3 ABG O2 Saturation ABG Base Excess ABG Hemoglobin Oxyhemoglobin Sodium Potassium Chloride 107.1 H Carbon Dioxide BUN 25 H Creatinine 0.4 L Glucose 122 H POC Glucose 118 H Lactic Acid Calcium Magnesium Iron TIBC Ferritin AST ALT Lactate Dehydrogenase Troponin T C-Reactive Protein Total Protein Albumin Prealbumin Cholesterol LDL Cholesterol Direct HDL Cholesterol Urine WBC (Auto) Vancomycin Trough Coronavirus (PCR) Crossmatch 07/12/19 07/12/19 07/12/19 08:49 11:36 18:15 WBC RBC Hgb Hct MCV MCH MCHC RDW Plt Count Lymph % (Auto) [place] % (Auto) Lymph # [place] # Baso # Seg Neutrophils % Seg Neuts % (Manual) Lymphocytes % (Manual) Monocytes % (Manual) Basophils % (Manual) Nucleated RBC % Seg Neutrophils # Seg Neutrophils # Man Lymphocytes # (Manual) Monocytes # (Manual) Eosinophils # (Manual) Basophils # (Manual) PT INR D-Dimer ABG pH ABG pO2 ABG HCO3 ABG O2 Saturation ABG Base Excess ABG Hemoglobin Oxyhemoglobin Sodium Potassium Chloride Carbon Dioxide BUN Creatinine Glucose POC Glucose 124 H 110 H Lactic Acid Calcium Magnesium Iron TIBC Ferritin AST ALT Lactate Dehydrogenase Troponin T C-Reactive Protein Total Protein Albumin Prealbumin Cholesterol LDL Cholesterol Direct HDL Cholesterol Urine WBC (Auto) Vancomycin Trough Coronavirus (PCR) Crossmatch See Detail 07/12/19 07/13/19 07/13/19 23:16 05:26 06:50 WBC 23.9 H RBC 2.58 L Hgb 6.9 L Hct 21.5 L MCV 83 L MCH 27 L MCHC RDW 19.0 H Plt Count Lymph % (Auto) [place] % (Auto) Lymph # [place] # Baso # Seg Neutrophils % Seg Neuts % (Manual) 96.0 H Lymphocytes % (Manual) 3.0 L Monocytes % (Manual) Basophils % (Manual) Nucleated RBC % Seg Neutrophils # Seg Neutrophils # Man 22.9 H Lymphocytes # (Manual) 0.7 L Monocytes # (Manual) Eosinophils # (Manual) Basophils # (Manual) PT INR D-Dimer ABG pH ABG pO2 ABG HCO3 ABG O2 Saturation ABG Base Excess ABG Hemoglobin Oxyhemoglobin Sodium Potassium Chloride Carbon Dioxide BUN Creatinine Glucose POC Glucose 108 H 126 H Lactic Acid Calcium Magnesium Iron TIBC Ferritin AST ALT Lactate Dehydrogenase Troponin T C-Reactive Protein Total Protein Albumin Prealbumin Cholesterol LDL Cholesterol Direct HDL Cholesterol Urine WBC (Auto) Vancomycin Trough Coronavirus (PCR) Crossmatch 07/13/19 07/13/19 07/13/19 06:50 12:38 18:05 WBC RBC Hgb Hct MCV MCH MCHC RDW Plt Count Lymph % (Auto) [place] % (Auto) Lymph # [place] # Baso # Seg Neutrophils % Seg Neuts % (Manual) Lymphocytes % (Manual) Monocytes % (Manual) Basophils % (Manual) Nucleated RBC % Seg Neutrophils # Seg Neutrophils # Man Lymphocytes # (Manual) Monocytes # (Manual) Eosinophils # (Manual) Basophils # (Manual) PT INR D-Dimer ABG pH ABG pO2 ABG HCO3 ABG O2 Saturation ABG Base Excess ABG Hemoglobin Oxyhemoglobin Sodium Potassium Chloride Carbon Dioxide BUN 33 H Creatinine 0.5 L Glucose 136 H POC Glucose 164 H 145 H Lactic Acid Calcium Magnesium Iron TIBC Ferritin AST ALT Lactate Dehydrogenase Troponin T C-Reactive Protein Total Protein Albumin Prealbumin Cholesterol LDL Cholesterol Direct HDL Cholesterol Urine WBC (Auto) Vancomycin Trough Coronavirus (PCR) Crossmatch 07/13/19 07/14/19 07/14/19 18:30 00:21 04:40 WBC 22.9 H RBC 2.45 L Hgb 6.6 L Hct 21.1 L MCV MCH 27 L MCHC 31 L RDW 19.2 H Plt Count Lymph % (Auto) [place] % (Auto) Lymph # [place] # Baso # Seg Neutrophils % Seg Neuts % (Manual) 91.0 H Lymphocytes % (Manual) 7.0 L Monocytes % (Manual) Basophils % (Manual) Nucleated RBC % Seg Neutrophils # Seg Neutrophils # Man 20.8 H Lymphocytes # (Manual) Monocytes # (Manual) Eosinophils # (Manual) Basophils # (Manual) PT INR D-Dimer ABG pH ABG pO2 58.1 L ABG HCO3 ABG O2 Saturation 88.7 L ABG Base Excess ABG Hemoglobin 7.8 L Oxyhemoglobin 86.8 L Sodium Potassium Chloride Carbon Dioxide BUN Creatinine Glucose POC Glucose 118 H Lactic Acid Calcium Magnesium Iron TIBC Ferritin AST ALT Lactate Dehydrogenase Troponin T C-Reactive Protein Total Protein Albumin Prealbumin Cholesterol LDL Cholesterol Direct HDL Cholesterol Urine WBC (Auto) Vancomycin Trough Coronavirus (PCR) Crossmatch 07/14/19 07/14/19 07/14/19 04:40 05:38 05:45 WBC RBC Hgb Hct MCV MCH MCHC RDW Plt Count Lymph % (Auto) [place] % (Auto) Lymph # [place] # Baso # Seg Neutrophils % Seg Neuts % (Manual) Lymphocytes % (Manual) Monocytes % (Manual) Basophils % (Manual) Nucleated RBC % Seg Neutrophils # Seg Neutrophils # Man Lymphocytes # (Manual) Monocytes # (Manual) Eosinophils # (Manual) Basophils # (Manual) PT INR D-Dimer ABG pH 7.230 L ABG pO2 72.1 L ABG HCO3 ABG O2 Saturation 89.3 L ABG Base Excess -2.7 L ABG Hemoglobin 6.7 L Oxyhemoglobin 87.7 L Sodium Potassium Chloride 107.4 H Carbon Dioxide BUN 45 H Creatinine Glucose 101 H POC Glucose 154 H Lactic Acid Calcium Magnesium Iron TIBC Ferritin AST ALT Lactate Dehydrogenase Troponin T C-Reactive Protein Total Protein Albumin Prealbumin Cholesterol LDL Cholesterol Direct HDL Cholesterol Urine WBC (Auto) Vancomycin Trough Coronavirus (PCR) Crossmatch 07/14/19 07/14/19 07/14/19 12:25 18:20 19:01 WBC 22.4 H RBC 2.70 L Hgb 7.5 L Hct 23.3 L MCV MCH MCHC RDW 19.5 H Plt Count Lymph % (Auto) [place] % (Auto) Lymph # [place] # Baso # Seg Neutrophils % Seg Neuts % (Manual) Lymphocytes % (Manual) Monocytes % (Manual) Basophils % (Manual) Nucleated RBC % Seg Neutrophils # Seg Neutrophils # Man Lymphocytes # (Manual) Monocytes # (Manual) Eosinophils # (Manual) Basophils # (Manual) PT INR D-Dimer ABG pH ABG pO2 ABG HCO3 ABG O2 Saturation ABG Base Excess ABG Hemoglobin Oxyhemoglobin Sodium Potassium Chloride Carbon Dioxide BUN Creatinine Glucose POC Glucose 136 H 131 H Lactic Acid Calcium Magnesium Iron TIBC Ferritin AST ALT Lactate Dehydrogenase Troponin T C-Reactive Protein Total Protein Albumin Prealbumin Cholesterol LDL Cholesterol Direct HDL Cholesterol Urine WBC (Auto) Vancomycin Trough Coronavirus (PCR) Crossmatch 07/15/19 07/15/19 07/15/19 00:17 04:35 05:18 WBC 20.6 H RBC 2.41 L Hgb 6.8 L Hct 20.7 L MCV MCH MCHC RDW 20.2 H Plt Count Lymph % (Auto) [place] % (Auto) Lymph # [place] # Baso # Seg Neutrophils % Seg Neuts % (Manual) 92.0 H Lymphocytes % (Manual) 5.0 L Monocytes % (Manual) Basophils % (Manual) Nucleated RBC % Seg Neutrophils # Seg Neutrophils # Man 19.0 H Lymphocytes # (Manual) 1.0 L Monocytes # (Manual) Eosinophils # (Manual) Basophils # (Manual) PT INR D-Dimer ABG pH 7.342 L ABG pO2 ABG HCO3 ABG O2 Saturation ABG Base Excess -3.1 L ABG Hemoglobin 7.2 L Oxyhemoglobin 94.9 L Sodium Potassium Chloride Carbon Dioxide BUN Creatinine Glucose POC Glucose 116 H Lactic Acid Calcium Magnesium Iron TIBC Ferritin AST ALT Lactate Dehydrogenase Troponin T C-Reactive Protein Total Protein Albumin Prealbumin Cholesterol LDL Cholesterol Direct HDL Cholesterol Urine WBC (Auto) Vancomycin Trough Coronavirus (PCR) Crossmatch 07/15/19 07/15/19 07/15/19 05:18 05:57 11:28 WBC RBC Hgb Hct MCV MCH MCHC RDW Plt Count Lymph % (Auto) [place] % (Auto) Lymph # [place] # Baso # Seg Neutrophils % Seg Neuts % (Manual) Lymphocytes % (Manual) Monocytes % (Manual) Basophils % (Manual) Nucleated RBC % Seg Neutrophils # Seg Neutrophils # Man Lymphocytes # (Manual) Monocytes # (Manual) Eosinophils # (Manual) Basophils # (Manual) PT INR D-Dimer ABG pH ABG pO2 ABG HCO3 ABG O2 Saturation ABG Base Excess ABG Hemoglobin Oxyhemoglobin Sodium Potassium Chloride Carbon Dioxide 20 L BUN 59 H Creatinine Glucose 140 H POC Glucose 139 H 117 H Lactic Acid Calcium Magnesium Iron TIBC Ferritin AST ALT Lactate Dehydrogenase Troponin T C-Reactive Protein Total Protein Albumin Prealbumin Cholesterol LDL Cholesterol Direct HDL Cholesterol Urine WBC (Auto) Vancomycin Trough Coronavirus (PCR) Crossmatch 07/15/19 07/16/19 07/16/19 18:13 00:06 03:43 WBC RBC Hgb Hct MCV MCH MCHC RDW Plt Count Lymph % (Auto) [place] % (Auto) Lymph # [place] # Baso # Seg Neutrophils % Seg Neuts % (Manual) Lymphocytes % (Manual) Monocytes % (Manual) Basophils % (Manual) Nucleated RBC % Seg Neutrophils # Seg Neutrophils # Man Lymphocytes # (Manual) Monocytes # (Manual) Eosinophils # (Manual) Basophils # (Manual) PT INR D-Dimer ABG pH 7.344 L ABG pO2 68.6 L ABG HCO3 ABG O2 Saturation ABG Base Excess -3.5 L ABG Hemoglobin 6.1 L Oxyhemoglobin 93.3 L Sodium Potassium Chloride Carbon Dioxide BUN Creatinine Glucose POC Glucose 114 H 119 H Lactic Acid Calcium Magnesium Iron TIBC Ferritin AST ALT Lactate Dehydrogenase Troponin T C-Reactive Protein Total Protein Albumin Prealbumin Cholesterol LDL Cholesterol Direct HDL Cholesterol Urine WBC (Auto) Vancomycin Trough Coronavirus (PCR) Crossmatch 07/16/19 07/16/19 07/16/19 04:41 04:41 12:09 WBC 19.6 H RBC 2.81 L Hgb 7.7 L Hct 24.0 L MCV MCH 27 L MCHC RDW 19.4 H Plt Count 514 H Lymph % (Auto) 6.7 L [place] % (Auto) Lymph # [place] # 1.0 H Baso # Seg Neutrophils % 87.0 H Seg Neuts % (Manual) Lymphocytes % (Manual) Monocytes % (Manual) Basophils % (Manual) Nucleated RBC % Seg Neutrophils # 17.0 H Seg Neutrophils # Man Lymphocytes # (Manual) Monocytes # (Manual) Eosinophils # (Manual) Basophils # (Manual) PT INR D-Dimer ABG pH ABG pO2 ABG HCO3 ABG O2 Saturation ABG Base Excess ABG Hemoglobin Oxyhemoglobin Sodium Potassium 5.9 H Chloride Carbon Dioxide 21 L BUN 73 H Creatinine 2.0 H Glucose POC Glucose 141 H Lactic Acid Calcium Magnesium Iron TIBC Ferritin AST ALT Lactate Dehydrogenase Troponin T C-Reactive Protein Total Protein Albumin Prealbumin Cholesterol LDL Cholesterol Direct HDL Cholesterol Urine WBC (Auto) Vancomycin Trough Coronavirus (PCR) Crossmatch 07/16/19 07/16/19 07/17/19 16:19 17:45 00:16 WBC RBC Hgb Hct MCV MCH MCHC RDW Plt Count Lymph % (Auto) [place] % (Auto) Lymph # [place] # Baso # Seg Neutrophils % Seg Neuts % (Manual) Lymphocytes % (Manual) Monocytes % (Manual) Basophils % (Manual) Nucleated RBC % Seg Neutrophils # Seg Neutrophils # Man Lymphocytes # (Manual) Monocytes # (Manual) Eosinophils # (Manual) Basophils # (Manual) PT INR D-Dimer ABG pH ABG pO2 ABG HCO3 ABG O2 Saturation ABG Base Excess ABG Hemoglobin Oxyhemoglobin Sodium Potassium 5.1 H Chloride Carbon Dioxide 20 L BUN 72 H Creatinine 1.7 H Glucose 128 H POC Glucose 181 H 164 H Lactic Acid Calcium Magnesium Iron TIBC Ferritin AST ALT Lactate Dehydrogenase Troponin T C-Reactive Protein Total Protein Albumin Prealbumin Cholesterol LDL Cholesterol Direct HDL Cholesterol Urine WBC (Auto) Vancomycin Trough Coronavirus (PCR) Crossmatch 07/17/19 07/17/19 07/17/19 04:20 04:39 04:39 WBC 16.1 H RBC 2.92 L Hgb 8.0 L Hct 25.5 L MCV MCH MCHC 31 L RDW 19.7 H Plt Count 564 H Lymph % (Auto) 3.6 L [place] % (Auto) 7.4 H Lymph # 0.6 L [place] # 1.2 H Baso # Seg Neutrophils % 87.5 H Seg Neuts % (Manual) Lymphocytes % (Manual) Monocytes % (Manual) Basophils % (Manual) Nucleated RBC % Seg Neutrophils # 14.1 H Seg Neutrophils # Man Lymphocytes # (Manual) Monocytes # (Manual) Eosinophils # (Manual) Basophils # (Manual) PT INR D-Dimer ABG pH 7.231 L ABG pO2 95.3 H ABG HCO3 ABG O2 Saturation ABG Base Excess -5.0 L ABG Hemoglobin 7.9 L Oxyhemoglobin 94.8 L Sodium Potassium Chloride 107.8 H Carbon Dioxide 21 L BUN 68 H Creatinine Glucose POC Glucose Lactic Acid Calcium Magnesium Iron TIBC Ferritin AST ALT Lactate Dehydrogenase Troponin T C-Reactive Protein Total Protein Albumin Prealbumin Cholesterol LDL Cholesterol Direct HDL Cholesterol Urine WBC (Auto) Vancomycin Trough Coronavirus (PCR) Crossmatch 07/17/19 07/17/19 07/17/19 05:28 12:11 18:48 WBC RBC Hgb Hct MCV MCH MCHC RDW Plt Count Lymph % (Auto) [place] % (Auto) Lymph # [place] # Baso # Seg Neutrophils % Seg Neuts % (Manual) Lymphocytes % (Manual) Monocytes % (Manual) Basophils % (Manual) Nucleated RBC % Seg Neutrophils # Seg Neutrophils # Man Lymphocytes # (Manual) Monocytes # (Manual) Eosinophils # (Manual) Basophils # (Manual) PT INR D-Dimer ABG pH ABG pO2 ABG HCO3 ABG O2 Saturation ABG Base Excess ABG Hemoglobin Oxyhemoglobin Sodium Potassium Chloride Carbon Dioxide BUN Creatinine Glucose POC Glucose 121 H 125 H 174 H Lactic Acid Calcium Magnesium Iron TIBC Ferritin AST ALT Lactate Dehydrogenase Troponin T C-Reactive Protein Total Protein Albumin Prealbumin Cholesterol LDL Cholesterol Direct HDL Cholesterol Urine WBC (Auto) Vancomycin Trough Coronavirus (PCR) Crossmatch 07/17/19 07/17/19 07/18/19 19:55 23:57 02:30 WBC RBC Hgb Hct MCV MCH MCHC RDW Plt Count Lymph % (Auto) [place] % (Auto) Lymph # [place] # Baso # Seg Neutrophils % Seg Neuts % (Manual) Lymphocytes % (Manual) Monocytes % (Manual) Basophils % (Manual) Nucleated RBC % Seg Neutrophils # Seg Neutrophils # Man Lymphocytes # (Manual) Monocytes # (Manual) Eosinophils # (Manual) Basophils # (Manual) PT INR D-Dimer ABG pH 7.344 L 7.294 L ABG pO2 78.5 L 119.2 H ABG HCO3 ABG O2 Saturation ABG Base Excess -3.3 L -2.6 L ABG Hemoglobin 8.6 L 8.1 L Oxyhemoglobin 94.8 L Sodium Potassium Chloride Carbon Dioxide BUN Creatinine Glucose POC Glucose 148 H Lactic Acid Calcium Magnesium Iron TIBC Ferritin AST ALT Lactate Dehydrogenase Troponin T C-Reactive Protein Total Protein Albumin Prealbumin Cholesterol LDL Cholesterol Direct HDL Cholesterol Urine WBC (Auto) Vancomycin Trough Coronavirus (PCR) Crossmatch 07/18/19 07/18/19 07/18/19 04:49 05:22 05:22 WBC 15.9 H RBC 3.00 L Hgb 8.1 L Hct 26.0 L MCV MCH 27 L MCHC 31 L RDW 19.4 H Plt Count 733 H Lymph % (Auto) 6.3 L [place] % (Auto) 7.4 H Lymph # 1.0 L [place] # 1.2 H Baso # 0.2 H Seg Neutrophils % 83.8 H Seg Neuts % (Manual) Lymphocytes % (Manual) Monocytes % (Manual) Basophils % (Manual) Nucleated RBC % Seg Neutrophils # 13.3 H Seg Neutrophils # Man Lymphocytes # (Manual) Monocytes # (Manual) Eosinophils # (Manual) Basophils # (Manual) PT INR D-Dimer ABG pH ABG pO2 ABG HCO3 ABG O2 Saturation ABG Base Excess ABG Hemoglobin Oxyhemoglobin Sodium Potassium Chloride 110.6 H Carbon Dioxide BUN 61 H Creatinine Glucose 109 H POC Glucose 116 H Lactic Acid Calcium Magnesium Iron TIBC Ferritin AST ALT Lactate Dehydrogenase Troponin T C-Reactive Protein Total Protein Albumin Prealbumin Cholesterol LDL Cholesterol Direct HDL Cholesterol Urine WBC (Auto) Vancomycin Trough Coronavirus (PCR) Crossmatch 07/18/19 07/18/19 07/18/19 12:23 18:06 22:20 WBC RBC Hgb Hct MCV MCH MCHC RDW Plt Count Lymph % (Auto) [place] % (Auto) Lymph # [place] # Baso # Seg Neutrophils % Seg Neuts % (Manual) Lymphocytes % (Manual) Monocytes % (Manual) Basophils % (Manual) Nucleated RBC % Seg Neutrophils # Seg Neutrophils # Man Lymphocytes # (Manual) Monocytes # (Manual) Eosinophils # (Manual) Basophils # (Manual) PT INR D-Dimer ABG pH 7.338 L ABG pO2 135.1 H ABG HCO3 ABG O2 Saturation ABG Base Excess ABG Hemoglobin 9.2 L Oxyhemoglobin Sodium Potassium Chloride Carbon Dioxide BUN Creatinine Glucose POC Glucose 114 H 113 H Lactic Acid Calcium Magnesium Iron TIBC Ferritin AST ALT Lactate Dehydrogenase Troponin T C-Reactive Protein Total Protein Albumin Prealbumin Cholesterol LDL Cholesterol Direct HDL Cholesterol Urine WBC (Auto) Vancomycin Trough Coronavirus (PCR) Crossmatch 07/18/19 07/19/19 07/19/19 23:33 03:45 05:18 WBC RBC Hgb Hct MCV MCH MCHC RDW Plt Count Lymph % (Auto) [place] % (Auto) Lymph # [place] # Baso # Seg Neutrophils % Seg Neuts % (Manual) Lymphocytes % (Manual) Monocytes % (Manual) Basophils % (Manual) Nucleated RBC % Seg Neutrophils # Seg Neutrophils # Man Lymphocytes # (Manual) Monocytes # (Manual) Eosinophils # (Manual) Basophils # (Manual) PT INR D-Dimer ABG pH 7.342 L ABG pO2 95.0 H ABG HCO3 ABG O2 Saturation ABG Base Excess ABG Hemoglobin 8.5 L Oxyhemoglobin Sodium Potassium Chloride Carbon Dioxide BUN Creatinine Glucose POC Glucose 125 H 111 H Lactic Acid Calcium Magnesium Iron TIBC Ferritin AST ALT Lactate Dehydrogenase Troponin T C-Reactive Protein Total Protein Albumin Prealbumin Cholesterol LDL Cholesterol Direct HDL Cholesterol Urine WBC (Auto) Vancomycin Trough Coronavirus (PCR) Crossmatch 07/19/19 07/19/19 07/19/19 08:45 08:45 11:47 WBC 15.9 H RBC 3.31 L Hgb 9.1 L Hct 28.4 L MCV MCH 27 L MCHC RDW 19.1 H Plt Count 858 H Lymph % (Auto) 4.9 L [place] % (Auto) 8.1 H Lymph # 0.8 L [place] # 1.3 H Baso # Seg Neutrophils % 85.5 H Seg Neuts % (Manual) Lymphocytes % (Manual) Monocytes % (Manual) Basophils % (Manual) Nucleated RBC % Seg Neutrophils # 13.6 H Seg Neutrophils # Man Lymphocytes # (Manual) Monocytes # (Manual) Eosinophils # (Manual) Basophils # (Manual) PT INR D-Dimer ABG pH ABG pO2 ABG HCO3 ABG O2 Saturation ABG Base Excess ABG Hemoglobin Oxyhemoglobin Sodium Potassium Chloride 111.6 H Carbon Dioxide BUN 50 H Creatinine 0.7 L Glucose 118 H POC Glucose 114 H Lactic Acid Calcium Magnesium Iron TIBC Ferritin AST ALT Lactate Dehydrogenase Troponin T C-Reactive Protein Total Protein Albumin Prealbumin Cholesterol LDL Cholesterol Direct HDL Cholesterol Urine WBC (Auto) Vancomycin Trough Coronavirus (PCR) Crossmatch 07/19/19 07/19/19 07/20/19 18:25 23:44 04:39 WBC RBC Hgb Hct MCV MCH MCHC RDW Plt Count Lymph % (Auto) [place] % (Auto) Lymph # [place] # Baso # Seg Neutrophils % Seg Neuts % (Manual) Lymphocytes % (Manual) Monocytes % (Manual) Basophils % (Manual) Nucleated RBC % Seg Neutrophils # Seg Neutrophils # Man Lymphocytes # (Manual) Monocytes # (Manual) Eosinophils # (Manual) Basophils # (Manual) PT INR D-Dimer ABG pH ABG pO2 ABG HCO3 ABG O2 Saturation ABG Base Excess ABG Hemoglobin Oxyhemoglobin Sodium Potassium Chloride 110.3 H Carbon Dioxide BUN 44 H Creatinine 0.6 L Glucose 120 H POC Glucose 115 H 117 H Lactic Acid Calcium Magnesium Iron TIBC Ferritin AST ALT Lactate Dehydrogenase Troponin T C-Reactive Protein Total Protein Albumin Prealbumin Cholesterol LDL Cholesterol Direct HDL Cholesterol Urine WBC (Auto) Vancomycin Trough Coronavirus (PCR) Crossmatch 07/20/19 07/21/19 07/21/19 05:30 11:59 17:40 WBC RBC Hgb Hct MCV MCH MCHC RDW Plt Count Lymph % (Auto) [place] % (Auto) Lymph # [place] # Baso # Seg Neutrophils % Seg Neuts % (Manual) Lymphocytes % (Manual) Monocytes % (Manual) Basophils % (Manual) Nucleated RBC % Seg Neutrophils # Seg Neutrophils # Man Lymphocytes # (Manual) Monocytes # (Manual) Eosinophils # (Manual) Basophils # (Manual) PT INR D-Dimer ABG pH ABG pO2 ABG HCO3 ABG O2 Saturation ABG Base Excess ABG Hemoglobin Oxyhemoglobin Sodium Potassium Chloride Carbon Dioxide BUN Creatinine Glucose POC Glucose 131 H 122 H 125 H Lactic Acid Calcium Magnesium Iron TIBC Ferritin AST ALT Lactate Dehydrogenase Troponin T C-Reactive Protein Total Protein Albumin Prealbumin Cholesterol LDL Cholesterol Direct HDL Cholesterol Urine WBC (Auto) Vancomycin Trough Coronavirus (PCR) Crossmatch 07/22/19 07/22/19 07/22/19 05:38 05:38 12:29 WBC 12.6 H RBC 3.19 L Hgb 8.9 L Hct 27.5 L MCV MCH MCHC RDW 18.9 H Plt Count 1101 H* Lymph % (Auto) [place] % (Auto) 12.2 H Lymph # [place] # 1.5 H Baso # Seg Neutrophils % 72.8 H Seg Neuts % (Manual) 76.0 H Lymphocytes % (Manual) 7.0 L Monocytes % (Manual) 14.0 H Basophils % (Manual) Nucleated RBC % 1.0 H Seg Neutrophils # 9.2 H Seg Neutrophils # Man 9.6 H Lymphocytes # (Manual) 0.9 L Monocytes # (Manual) 1.8 H Eosinophils # (Manual) Basophils # (Manual) PT INR D-Dimer ABG pH ABG pO2 ABG HCO3 ABG O2 Saturation ABG Base Excess ABG Hemoglobin Oxyhemoglobin Sodium Potassium 3.4 L Chloride Carbon Dioxide BUN 29 H Creatinine 0.5 L Glucose POC Glucose 116 H Lactic Acid Calcium Magnesium Iron TIBC Ferritin AST ALT Lactate Dehydrogenase Troponin T C-Reactive Protein Total Protein Albumin Prealbumin Cholesterol LDL Cholesterol Direct HDL Cholesterol Urine WBC (Auto) Vancomycin Trough Coronavirus (PCR) Crossmatch 07/22/19 07/22/19 07/23/19 18:20 23:51 04:52 WBC RBC Hgb Hct MCV MCH MCHC RDW Plt Count Lymph % (Auto) [place] % (Auto) Lymph # [place] # Baso # Seg Neutrophils % Seg Neuts % (Manual) Lymphocytes % (Manual) Monocytes % (Manual) Basophils % (Manual) Nucleated RBC % Seg Neutrophils # Seg Neutrophils # Man Lymphocytes # (Manual) Monocytes # (Manual) Eosinophils # (Manual) Basophils # (Manual) PT INR D-Dimer ABG pH ABG pO2 ABG HCO3 ABG O2 Saturation ABG Base Excess ABG Hemoglobin Oxyhemoglobin Sodium Potassium Chloride Carbon Dioxide BUN 24 H Creatinine 0.4 L Glucose POC Glucose 107 H 110 H Lactic Acid Calcium Magnesium Iron TIBC Ferritin AST ALT Lactate Dehydrogenase Troponin T C-Reactive Protein Total Protein Albumin Prealbumin Cholesterol LDL Cholesterol Direct HDL Cholesterol Urine WBC (Auto) Vancomycin Trough Coronavirus (PCR) Crossmatch 07/23/19 07/23/19 07/24/19 06:00 23:15 04:40 WBC RBC Hgb Hct MCV MCH MCHC RDW Plt Count Lymph % (Auto) [place] % (Auto) Lymph # [place] # Baso # Seg Neutrophils % Seg Neuts % (Manual) Lymphocytes % (Manual) Monocytes % (Manual) Basophils % (Manual) Nucleated RBC % Seg Neutrophils # Seg Neutrophils # Man Lymphocytes # (Manual) Monocytes # (Manual) Eosinophils # (Manual) Basophils # (Manual) PT INR D-Dimer ABG pH ABG pO2 73.5 L ABG HCO3 27.0 H 28.5 H ABG O2 Saturation 94.5 L ABG Base Excess ABG Hemoglobin 9.4 L 8.9 L Oxyhemoglobin 94.0 L 92.7 L Sodium Potassium Chloride Carbon Dioxide BUN Creatinine Glucose POC Glucose 117 H Lactic Acid Calcium Magnesium Iron TIBC Ferritin AST ALT Lactate Dehydrogenase Troponin T C-Reactive Protein Total Protein Albumin Prealbumin Cholesterol LDL Cholesterol Direct HDL Cholesterol Urine WBC (Auto) Vancomycin Trough Coronavirus (PCR) Crossmatch 07/24/19 07/24/19 07/25/19 05:25 12:06 00:16 WBC RBC Hgb Hct MCV MCH MCHC RDW Plt Count Lymph % (Auto) [place] % (Auto) Lymph # [place] # Baso # Seg Neutrophils % Seg Neuts % (Manual) Lymphocytes % (Manual) Monocytes % (Manual) Basophils % (Manual) Nucleated RBC % Seg Neutrophils # Seg Neutrophils # Man Lymphocytes # (Manual) Monocytes # (Manual) Eosinophils # (Manual) Basophils # (Manual) PT INR D-Dimer ABG pH ABG pO2 ABG HCO3 ABG O2 Saturation ABG Base Excess ABG Hemoglobin Oxyhemoglobin Sodium Potassium Chloride Carbon Dioxide BUN Creatinine Glucose POC Glucose 114 H 108 H 106 H Lactic Acid Calcium Magnesium Iron TIBC Ferritin AST ALT Lactate Dehydrogenase Troponin T C-Reactive Protein Total Protein Albumin Prealbumin Cholesterol LDL Cholesterol Direct HDL Cholesterol Urine WBC (Auto) Vancomycin Trough Coronavirus (PCR) Crossmatch 07/25/19 07/25/19 07/25/19 05:14 05:14 05:17 WBC 17.8 H RBC 3.32 L Hgb 9.2 L Hct 28.6 L MCV MCH MCHC RDW 19.9 H Plt Count 994 H Lymph % (Auto) [place] % (Auto) Lymph # [place] # Baso # Seg Neutrophils % Seg Neuts % (Manual) 82.0 H Lymphocytes % (Manual) 5.0 L Monocytes % (Manual) Basophils % (Manual) Nucleated RBC % Seg Neutrophils # Seg Neutrophils # Man 14.6 H Lymphocytes # (Manual) 0.9 L Monocytes # (Manual) 1.2 H Eosinophils # (Manual) Basophils # (Manual) PT INR D-Dimer ABG pH ABG pO2 ABG HCO3 ABG O2 Saturation ABG Base Excess ABG Hemoglobin Oxyhemoglobin Sodium Potassium Chloride Carbon Dioxide BUN Creatinine 0.4 L Glucose 110 H POC Glucose 107 H Lactic Acid Calcium Magnesium Iron TIBC Ferritin AST ALT Lactate Dehydrogenase Troponin T C-Reactive Protein Total Protein Albumin Prealbumin Cholesterol LDL Cholesterol Direct HDL Cholesterol Urine WBC (Auto) Vancomycin Trough Coronavirus (PCR) Crossmatch 07/25/19 07/25/19 07/26/19 11:55 23:49 06:01 WBC RBC Hgb Hct MCV MCH MCHC RDW Plt Count Lymph % (Auto) [place] % (Auto) Lymph # [place] # Baso # Seg Neutrophils % Seg Neuts % (Manual) Lymphocytes % (Manual) Monocytes % (Manual) Basophils % (Manual) Nucleated RBC % Seg Neutrophils # Seg Neutrophils # Man Lymphocytes # (Manual) Monocytes # (Manual) Eosinophils # (Manual) Basophils # (Manual) PT INR D-Dimer ABG pH ABG pO2 ABG HCO3 ABG O2 Saturation ABG Base Excess ABG Hemoglobin Oxyhemoglobin Sodium Potassium Chloride Carbon Dioxide BUN Creatinine Glucose POC Glucose 123 H 118 H 106 H Lactic Acid Calcium Magnesium Iron TIBC Ferritin AST ALT Lactate Dehydrogenase Troponin T C-Reactive Protein Total Protein Albumin Prealbumin Cholesterol LDL Cholesterol Direct HDL Cholesterol Urine WBC (Auto) Vancomycin Trough Coronavirus (PCR) Crossmatch 07/26/19 07/27/19 07/27/19 17:02 00:28 05:16 WBC RBC Hgb Hct MCV MCH MCHC RDW Plt Count Lymph % (Auto) [place] % (Auto) Lymph # [place] # Baso # Seg Neutrophils % Seg Neuts % (Manual) Lymphocytes % (Manual) Monocytes % (Manual) Basophils % (Manual) Nucleated RBC % Seg Neutrophils # Seg Neutrophils # Man Lymphocytes # (Manual) Monocytes # (Manual) Eosinophils # (Manual) Basophils # (Manual) PT INR D-Dimer ABG pH ABG pO2 63.4 L ABG HCO3 31.3 H ABG O2 Saturation 92.7 L ABG Base Excess 6.3 H ABG Hemoglobin 7.6 L Oxyhemoglobin 90.9 L Sodium Potassium Chloride Carbon Dioxide BUN Creatinine Glucose POC Glucose 116 H 158 H Lactic Acid Calcium Magnesium Iron TIBC Ferritin AST ALT Lactate Dehydrogenase Troponin T C-Reactive Protein Total Protein Albumin Prealbumin Cholesterol LDL Cholesterol Direct HDL Cholesterol Urine WBC (Auto) Vancomycin Trough Coronavirus (PCR) Crossmatch 07/28/19 07/28/19 07/28/19 10:13 10:13 23:54 WBC 18.5 H RBC 3.20 L Hgb 8.8 L Hct 26.8 L MCV MCH 27 L MCHC RDW 19.9 H Plt Count 730 H Lymph % (Auto) [place] % (Auto) Lymph # [place] # Baso # Seg Neutrophils % Seg Neuts % (Manual) Lymphocytes % (Manual) Monocytes % (Manual) Basophils % (Manual) Nucleated RBC % Seg Neutrophils # Seg Neutrophils # Man Lymphocytes # (Manual) Monocytes # (Manual) Eosinophils # (Manual) Basophils # (Manual) PT INR D-Dimer ABG pH ABG pO2 ABG HCO3 ABG O2 Saturation ABG Base Excess ABG Hemoglobin Oxyhemoglobin Sodium Potassium 3.2 L Chloride 97.5 L Carbon Dioxide 31 H BUN Creatinine 0.5 L Glucose POC Glucose 120 H Lactic Acid Calcium Magnesium Iron TIBC Ferritin AST ALT Lactate Dehydrogenase Troponin T C-Reactive Protein Total Protein Albumin Prealbumin Cholesterol LDL Cholesterol Direct HDL Cholesterol Urine WBC (Auto) Vancomycin Trough Coronavirus (PCR) Crossmatch 07/29/19 07/29/19 07/29/19 11:57 17:43 Unknown WBC RBC Hgb Hct MCV MCH MCHC RDW Plt Count Lymph % (Auto) [place] % (Auto) Lymph # [place] # Baso # Seg Neutrophils % Seg Neuts % (Manual) Lymphocytes % (Manual) Monocytes % (Manual) Basophils % (Manual) Nucleated RBC % Seg Neutrophils # Seg Neutrophils # Man Lymphocytes # (Manual) Monocytes # (Manual) Eosinophils # (Manual) Basophils # (Manual) PT INR D-Dimer ABG pH ABG pO2 ABG HCO3 ABG O2 Saturation ABG Base Excess ABG Hemoglobin Oxyhemoglobin Sodium Potassium Chloride Carbon Dioxide BUN Creatinine Glucose POC Glucose 112 H Lactic Acid Calcium Magnesium Iron TIBC Ferritin AST ALT Lactate Dehydrogenase Troponin T C-Reactive Protein Total Protein Albumin Prealbumin Cholesterol LDL Cholesterol Direct HDL Cholesterol Urine WBC (Auto) 63.0 H Vancomycin Trough Coronavirus (PCR) Positive A Crossmatch 07/30/19 07/30/19 07/30/19 00:20 04:35 04:35 WBC 24.3 H RBC 3.12 L Hgb 8.5 L Hct 26.3 L MCV MCH 27 L MCHC RDW 20.2 H Plt Count 550 H Lymph % (Auto) [place] % (Auto) Lymph # [place] # Baso # Seg Neutrophils % Seg Neuts % (Manual) Lymphocytes % (Manual) Monocytes % (Manual) Basophils % (Manual) Nucleated RBC % Seg Neutrophils # Seg Neutrophils # Man Lymphocytes # (Manual) Monocytes # (Manual) Eosinophils # (Manual) Basophils # (Manual) PT INR D-Dimer ABG pH ABG pO2 ABG HCO3 ABG O2 Saturation ABG Base Excess ABG Hemoglobin Oxyhemoglobin Sodium Potassium 3.0 L Chloride 96.3 L Carbon Dioxide 32 H BUN Creatinine 0.5 L Glucose POC Glucose 106 H Lactic Acid Calcium Magnesium Iron TIBC Ferritin AST ALT Lactate Dehydrogenase Troponin T C-Reactive Protein Total Protein Albumin Prealbumin Cholesterol LDL Cholesterol Direct HDL Cholesterol Urine WBC (Auto) Vancomycin Trough Coronavirus (PCR) Crossmatch 07/31/19 07/31/19 07/31/19 04:42 04:42 11:33 WBC 23.8 H RBC 3.10 L Hgb 8.4 L Hct 26.1 L MCV MCH 27 L MCHC RDW 19.6 H Plt Count 561 H Lymph % (Auto) [place] % (Auto) Lymph # [place] # Baso # Seg Neutrophils % Seg Neuts % (Manual) Lymphocytes % (Manual) Monocytes % (Manual) Basophils % (Manual) Nucleated RBC % Seg Neutrophils # Seg Neutrophils # Man Lymphocytes # (Manual) Monocytes # (Manual) Eosinophils # (Manual) Basophils # (Manual) PT INR D-Dimer ABG pH ABG pO2 ABG HCO3 ABG O2 Saturation ABG Base Excess ABG Hemoglobin Oxyhemoglobin Sodium 135 L Potassium Chloride 93.9 L Carbon Dioxide 32 H BUN Creatinine 0.4 L Glucose POC Glucose 116 H Lactic Acid Calcium Magnesium Iron TIBC Ferritin AST ALT Lactate Dehydrogenase Troponin T C-Reactive Protein Total Protein Albumin 1.6 L Prealbumin 0.037 L Cholesterol LDL Cholesterol Direct HDL Cholesterol Urine WBC (Auto) Vancomycin Trough Coronavirus (PCR) Crossmatch 07/31/19 08/01/19 08/01/19 23:33 04:57 04:57 WBC 26.7 H RBC 3.12 L Hgb 8.5 L Hct 26.3 L MCV MCH 27 L MCHC RDW 19.2 H Plt Count 602 H Lymph % (Auto) [place] % (Auto) Lymph # [place] # Baso # Seg Neutrophils % Seg Neuts % (Manual) 93.0 H Lymphocytes % (Manual) 2.0 L Monocytes % (Manual) Basophils % (Manual) Nucleated RBC % Seg Neutrophils # Seg Neutrophils # Man 24.8 H Lymphocytes # (Manual) 0.5 L Monocytes # (Manual) 1.1 H Eosinophils # (Manual) Basophils # (Manual) PT INR D-Dimer ABG pH ABG pO2 ABG HCO3 ABG O2 Saturation ABG Base Excess ABG Hemoglobin Oxyhemoglobin Sodium 132 L Potassium Chloride 93.8 L Carbon Dioxide 31 H BUN Creatinine 0.3 L Glucose POC Glucose 148 H Lactic Acid Calcium 8.1 L Magnesium Iron TIBC Ferritin AST ALT Lactate Dehydrogenase Troponin T C-Reactive Protein Total Protein Albumin Prealbumin Cholesterol LDL Cholesterol Direct HDL Cholesterol Urine WBC (Auto) Vancomycin Trough Coronavirus (PCR) Crossmatch 08/01/19 08/02/19 08/02/19 12:16 00:22 05:24 WBC RBC Hgb Hct MCV MCH MCHC RDW Plt Count Lymph % (Auto) [place] % (Auto) Lymph # [place] # Baso # Seg Neutrophils % Seg Neuts % (Manual) Lymphocytes % (Manual) Monocytes % (Manual) Basophils % (Manual) Nucleated RBC % Seg Neutrophils # Seg Neutrophils # Man Lymphocytes # (Manual) Monocytes # (Manual) Eosinophils # (Manual) Basophils # (Manual) PT INR D-Dimer ABG pH ABG pO2 ABG HCO3 ABG O2 Saturation ABG Base Excess ABG Hemoglobin Oxyhemoglobin Sodium Potassium Chloride Carbon Dioxide BUN Creatinine Glucose POC Glucose 120 H 119 H 113 H Lactic Acid Calcium Magnesium Iron TIBC Ferritin AST ALT Lactate Dehydrogenase Troponin T C-Reactive Protein Total Protein Albumin Prealbumin Cholesterol LDL Cholesterol Direct HDL Cholesterol Urine WBC (Auto) Vancomycin Trough Coronavirus (PCR) Crossmatch 08/03/19 08/03/19 08/03/19 05:20 12:01 23:48 WBC RBC Hgb Hct MCV MCH MCHC RDW Plt Count Lymph % (Auto) [place] % (Auto) Lymph # [place] # Baso # Seg Neutrophils % Seg Neuts % (Manual) Lymphocytes % (Manual) Monocytes % (Manual) Basophils % (Manual) Nucleated RBC % Seg Neutrophils # Seg Neutrophils # Man Lymphocytes # (Manual) Monocytes # (Manual) Eosinophils # (Manual) Basophils # (Manual) PT INR D-Dimer ABG pH ABG pO2 ABG HCO3 ABG O2 Saturation ABG Base Excess ABG Hemoglobin Oxyhemoglobin Sodium Potassium Chloride Carbon Dioxide BUN Creatinine Glucose POC Glucose 118 H 106 H 120 H Lactic Acid Calcium Magnesium Iron TIBC Ferritin AST ALT Lactate Dehydrogenase Troponin T C-Reactive Protein Total Protein Albumin Prealbumin Cholesterol LDL Cholesterol Direct HDL Cholesterol Urine WBC (Auto) Vancomycin Trough Coronavirus (PCR) Crossmatch 08/04/19 08/04/19 08/04/19 05:38 05:38 06:29 WBC 26.1 H RBC 2.77 L Hgb 7.5 L Hct 23.2 L MCV MCH 27 L MCHC RDW 19.2 H Plt Count 648 H Lymph % (Auto) [place] % (Auto) Lymph # [place] # Baso # Seg Neutrophils % Seg Neuts % (Manual) 90.5 H Lymphocytes % (Manual) 3.5 L Monocytes % (Manual) Basophils % (Manual) Nucleated RBC % Seg Neutrophils # Seg Neutrophils # Man 23.6 H Lymphocytes # (Manual) 0.9 L Monocytes # (Manual) 1.2 H Eosinophils # (Manual) Basophils # (Manual) PT INR D-Dimer ABG pH ABG pO2 ABG HCO3 ABG O2 Saturation ABG Base Excess ABG Hemoglobin Oxyhemoglobin Sodium 132 L Potassium 3.4 L D Chloride 92.7 L Carbon Dioxide 33 H BUN Creatinine 0.2 L Glucose POC Glucose 108 H Lactic Acid Calcium 8.1 L Magnesium Iron TIBC Ferritin AST ALT Lactate Dehydrogenase Troponin T C-Reactive Protein Total Protein Albumin Prealbumin Cholesterol LDL Cholesterol Direct HDL Cholesterol Urine WBC (Auto) Vancomycin Trough Coronavirus (PCR) Crossmatch 08/04/19 08/05/19 08/05/19 12:30 04:58 04:58 WBC 21.0 H RBC 2.63 L Hgb 7.2 L Hct 21.9 L MCV 83 L MCH 27 L MCHC RDW 18.9 H Plt Count 691 H Lymph % (Auto) [place] % (Auto) Lymph # [place] # Baso # Seg Neutrophils % Seg Neuts % (Manual) 86.0 H Lymphocytes % (Manual) 3.0 L Monocytes % (Manual) 10.0 H Basophils % (Manual) Nucleated RBC % Seg Neutrophils # Seg Neutrophils # Man 18.1 H Lymphocytes # (Manual) 0.6 L Monocytes # (Manual) 2.1 H Eosinophils # (Manual) Basophils # (Manual) PT INR D-Dimer ABG pH ABG pO2 ABG HCO3 ABG O2 Saturation ABG Base Excess ABG Hemoglobin Oxyhemoglobin Sodium 134 L Potassium 3.2 L Chloride 93.2 L Carbon Dioxide 34 H BUN 8 L Creatinine 0.3 L Glucose POC Glucose 138 H Lactic Acid Calcium 8.1 L Magnesium Iron TIBC Ferritin AST ALT Lactate Dehydrogenase Troponin T C-Reactive Protein Total Protein Albumin Prealbumin Cholesterol LDL Cholesterol Direct HDL Cholesterol Urine WBC (Auto) Vancomycin Trough Coronavirus (PCR) Crossmatch 08/05/19 08/05/19 08/05/19 11:53 17:57 23:58 WBC RBC Hgb Hct MCV MCH MCHC RDW Plt Count Lymph % (Auto) [place] % (Auto) Lymph # [place] # Baso # Seg Neutrophils % Seg Neuts % (Manual) Lymphocytes % (Manual) Monocytes % (Manual) Basophils % (Manual) Nucleated RBC % Seg Neutrophils # Seg Neutrophils # Man Lymphocytes # (Manual) Monocytes # (Manual) Eosinophils # (Manual) Basophils # (Manual) PT INR D-Dimer ABG pH ABG pO2 ABG HCO3 ABG O2 Saturation ABG Base Excess ABG Hemoglobin Oxyhemoglobin Sodium Potassium Chloride Carbon Dioxide BUN Creatinine Glucose POC Glucose 106 H 111 H 116 H Lactic Acid Calcium Magnesium Iron TIBC Ferritin AST ALT Lactate Dehydrogenase Troponin T C-Reactive Protein Total Protein Albumin Prealbumin Cholesterol LDL Cholesterol Direct HDL Cholesterol Urine WBC (Auto) Vancomycin Trough Coronavirus (PCR) Crossmatch 08/06/19 08/06/19 08/06/19 04:11 04:11 06:04 WBC 20.8 H RBC 2.80 L Hgb 7.6 L Hct 23.5 L MCV MCH 27 L MCHC RDW 19.0 H Plt Count 723 H Lymph % (Auto) [place] % (Auto) Lymph # [place] # Baso # Seg Neutrophils % Seg Neuts % (Manual) 88.0 H Lymphocytes % (Manual) 3.0 L Monocytes % (Manual) Basophils % (Manual) Nucleated RBC % Seg Neutrophils # Seg Neutrophils # Man 18.3 H Lymphocytes # (Manual) 0.6 L Monocytes # (Manual) Eosinophils # (Manual) Basophils # (Manual) 0.2 H PT INR D-Dimer ABG pH ABG pO2 ABG HCO3 ABG O2 Saturation ABG Base Excess ABG Hemoglobin Oxyhemoglobin Sodium Potassium 3.4 L Chloride 95.2 L Carbon Dioxide 32 H BUN Creatinine 0.3 L Glucose POC Glucose 108 H Lactic Acid Calcium 8.2 L Magnesium Iron TIBC Ferritin AST ALT Lactate Dehydrogenase Troponin T C-Reactive Protein Total Protein Albumin Prealbumin Cholesterol LDL Cholesterol Direct HDL Cholesterol Urine WBC (Auto) Vancomycin Trough Coronavirus (PCR) Crossmatch 08/06/19 08/06/19 08/07/19 12:23 17:13 00:21 WBC RBC Hgb Hct MCV MCH MCHC RDW Plt Count Lymph % (Auto) [place] % (Auto) Lymph # [place] # Baso # Seg Neutrophils % Seg Neuts % (Manual) Lymphocytes % (Manual) Monocytes % (Manual) Basophils % (Manual) Nucleated RBC % Seg Neutrophils # Seg Neutrophils # Man Lymphocytes # (Manual) Monocytes # (Manual) Eosinophils # (Manual) Basophils # (Manual) PT INR D-Dimer ABG pH ABG pO2 ABG HCO3 ABG O2 Saturation ABG Base Excess ABG Hemoglobin Oxyhemoglobin Sodium Potassium Chloride Carbon Dioxide BUN Creatinine Glucose POC Glucose 112 H 132 H 147 H Lactic Acid Calcium Magnesium Iron TIBC Ferritin AST ALT Lactate Dehydrogenase Troponin T C-Reactive Protein Total Protein Albumin Prealbumin Cholesterol LDL Cholesterol Direct HDL Cholesterol Urine WBC (Auto) Vancomycin Trough Coronavirus (PCR) Crossmatch 08/07/19 08/07/19 08/07/19 05:16 05:23 05:23 WBC 30.3 H RBC 2.69 L Hgb 7.1 L Hct 22.2 L MCV 83 L MCH 27 L MCHC RDW 19.1 H Plt Count 650 H Lymph % (Auto) [place] % (Auto) Lymph # [place] # Baso # Seg Neutrophils % Seg Neuts % (Manual) 88.0 H Lymphocytes % (Manual) 5.0 L Monocytes % (Manual) Basophils % (Manual) Nucleated RBC % Seg Neutrophils # Seg Neutrophils # Man 26.7 H Lymphocytes # (Manual) Monocytes # (Manual) 2.1 H Eosinophils # (Manual) Basophils # (Manual) PT INR D-Dimer ABG pH ABG pO2 ABG HCO3 ABG O2 Saturation ABG Base Excess ABG Hemoglobin Oxyhemoglobin Sodium 135 L Potassium 3.4 L Chloride 95.4 L Carbon Dioxide 32 H BUN Creatinine 0.4 L Glucose 120 H POC Glucose 120 H Lactic Acid Calcium 7.7 L Magnesium Iron TIBC Ferritin AST ALT Lactate Dehydrogenase Troponin T C-Reactive Protein Total Protein Albumin Prealbumin Cholesterol LDL Cholesterol Direct HDL Cholesterol Urine WBC (Auto) Vancomycin Trough Coronavirus (PCR) Crossmatch 08/07/19 08/07/19 08/07/19 10:24 10:24 11:10 WBC RBC Hgb Hct MCV MCH MCHC RDW Plt Count Lymph % (Auto) [place] % (Auto) Lymph # [place] # Baso # Seg Neutrophils % Seg Neuts % (Manual) Lymphocytes % (Manual) Monocytes % (Manual) Basophils % (Manual) Nucleated RBC % Seg Neutrophils # Seg Neutrophils # Man Lymphocytes # (Manual) Monocytes # (Manual) Eosinophils # (Manual) Basophils # (Manual) PT INR D-Dimer 1808.06 H ABG pH ABG pO2 73.3 L ABG HCO3 33.9 H ABG O2 Saturation ABG Base Excess 9.0 H ABG Hemoglobin 6.3 L Oxyhemoglobin 94.3 L Sodium Potassium Chloride Carbon Dioxide BUN Creatinine Glucose POC Glucose Lactic Acid Calcium Magnesium Iron TIBC Ferritin AST ALT Lactate Dehydrogenase Troponin T C-Reactive Protein 11.10 H Total Protein Albumin Prealbumin Cholesterol LDL Cholesterol Direct HDL Cholesterol Urine WBC (Auto) Vancomycin Trough Coronavirus (PCR) Crossmatch 08/07/19 08/08/19 08/08/19 12:01 04:41 04:41 WBC 22.1 H RBC 2.82 L Hgb 7.7 L Hct 23.6 L MCV MCH 27 L MCHC RDW 19.1 H Plt Count 722 H Lymph % (Auto) [place] % (Auto) Lymph # [place] # Baso # Seg Neutrophils % Seg Neuts % (Manual) 90.0 H Lymphocytes % (Manual) 3.0 L Monocytes % (Manual) Basophils % (Manual) Nucleated RBC % Seg Neutrophils # Seg Neutrophils # Man 19.9 H Lymphocytes # (Manual) 0.7 L Monocytes # (Manual) 1.3 H Eosinophils # (Manual) Basophils # (Manual) PT INR D-Dimer ABG pH ABG pO2 ABG HCO3 ABG O2 Saturation ABG Base Excess ABG Hemoglobin Oxyhemoglobin Sodium 136 L Potassium Chloride 97.8 L Carbon Dioxide BUN Creatinine 0.3 L Glucose 105 H POC Glucose 130 H Lactic Acid Calcium 7.8 L Magnesium Iron TIBC Ferritin AST ALT Lactate Dehydrogenase Troponin T C-Reactive Protein Total Protein Albumin Prealbumin Cholesterol LDL Cholesterol Direct HDL Cholesterol Urine WBC (Auto) Vancomycin Trough Coronavirus (PCR) Crossmatch 08/08/19 08/08/19 08/09/19 11:46 18:35 00:12 WBC RBC Hgb Hct MCV MCH MCHC RDW Plt Count Lymph % (Auto) [place] % (Auto) Lymph # [place] # Baso # Seg Neutrophils % Seg Neuts % (Manual) Lymphocytes % (Manual) Monocytes % (Manual) Basophils % (Manual) Nucleated RBC % Seg Neutrophils # Seg Neutrophils # Man Lymphocytes # (Manual) Monocytes # (Manual) Eosinophils # (Manual) Basophils # (Manual) PT INR D-Dimer ABG pH ABG pO2 ABG HCO3 ABG O2 Saturation ABG Base Excess ABG Hemoglobin Oxyhemoglobin Sodium Potassium Chloride Carbon Dioxide BUN Creatinine Glucose POC Glucose 117 H 117 H 117 H Lactic Acid Calcium Magnesium Iron TIBC Ferritin AST ALT Lactate Dehydrogenase Troponin T C-Reactive Protein Total Protein Albumin Prealbumin Cholesterol LDL Cholesterol Direct HDL Cholesterol Urine WBC (Auto) Vancomycin Trough Coronavirus (PCR) Crossmatch 08/09/19 08/09/19 08/09/19 05:33 12:22 17:48 WBC RBC Hgb Hct MCV MCH MCHC RDW Plt Count Lymph % (Auto) [place] % (Auto) Lymph # [place] # Baso # Seg Neutrophils % Seg Neuts % (Manual) Lymphocytes % (Manual) Monocytes % (Manual) Basophils % (Manual) Nucleated RBC % Seg Neutrophils # Seg Neutrophils # Man Lymphocytes # (Manual) Monocytes # (Manual) Eosinophils # (Manual) Basophils # (Manual) PT INR D-Dimer ABG pH ABG pO2 ABG HCO3 ABG O2 Saturation ABG Base Excess ABG Hemoglobin Oxyhemoglobin Sodium Potassium Chloride Carbon Dioxide BUN Creatinine Glucose POC Glucose 119 H 133 H 123 H Lactic Acid Calcium Magnesium Iron TIBC Ferritin AST ALT Lactate Dehydrogenase Troponin T C-Reactive Protein Total Protein Albumin Prealbumin Cholesterol LDL Cholesterol Direct HDL Cholesterol Urine WBC (Auto) Vancomycin Trough Coronavirus (PCR) Crossmatch 08/09/19 08/09/19 08/10/19 17:59 18:15 00:02 WBC RBC Hgb 6.7 L Hct 20.4 L MCV MCH MCHC RDW Plt Count Lymph % (Auto) [place] % (Auto) Lymph # [place] # Baso # Seg Neutrophils % Seg Neuts % (Manual) Lymphocytes % (Manual) Monocytes % (Manual) Basophils % (Manual) Nucleated RBC % Seg Neutrophils # Seg Neutrophils # Man Lymphocytes # (Manual) Monocytes # (Manual) Eosinophils # (Manual) Basophils # (Manual) PT INR D-Dimer ABG pH ABG pO2 ABG HCO3 ABG O2 Saturation ABG Base Excess ABG Hemoglobin Oxyhemoglobin Sodium Potassium Chloride Carbon Dioxide BUN Creatinine Glucose POC Glucose 124 H Lactic Acid Calcium Magnesium Iron TIBC Ferritin AST ALT Lactate Dehydrogenase Troponin T C-Reactive Protein Total Protein Albumin Prealbumin Cholesterol LDL Cholesterol Direct HDL Cholesterol Urine WBC (Auto) Vancomycin Trough Coronavirus (PCR) Crossmatch See Detail 08/10/19 08/10/19 08/10/19 05:47 08:00 08:00 WBC 16.9 H RBC 2.94 L Hgb 8.2 L Hct 24.9 L MCV MCH MCHC RDW 17.0 H Plt Count 661 H Lymph % (Auto) [place] % (Auto) Lymph # [place] # Baso # Seg Neutrophils % Seg Neuts % (Manual) Lymphocytes % (Manual) Monocytes % (Manual) Basophils % (Manual) Nucleated RBC % Seg Neutrophils # Seg Neutrophils # Man Lymphocytes # (Manual) Monocytes # (Manual) Eosinophils # (Manual) Basophils # (Manual) PT INR D-Dimer ABG pH ABG pO2 ABG HCO3 ABG O2 Saturation ABG Base Excess ABG Hemoglobin Oxyhemoglobin Sodium Potassium Chloride Carbon Dioxide BUN Creatinine 0.3 L Glucose 116 H POC Glucose 148 H Lactic Acid Calcium 7.7 L Magnesium Iron TIBC Ferritin AST ALT Lactate Dehydrogenase Troponin T C-Reactive Protein Total Protein Albumin Prealbumin Cholesterol LDL Cholesterol Direct HDL Cholesterol Urine WBC (Auto) Vancomycin Trough Coronavirus (PCR) Crossmatch 08/10/19 08/10/19 08/10/19 12:38 18:06 23:56 WBC RBC Hgb Hct MCV MCH MCHC RDW Plt Count Lymph % (Auto) [place] % (Auto) Lymph # [place] # Baso # Seg Neutrophils % Seg Neuts % (Manual) Lymphocytes % (Manual) Monocytes % (Manual) Basophils % (Manual) Nucleated RBC % Seg Neutrophils # Seg Neutrophils # Man Lymphocytes # (Manual) Monocytes # (Manual) Eosinophils # (Manual) Basophils # (Manual) PT INR D-Dimer ABG pH ABG pO2 ABG HCO3 ABG O2 Saturation ABG Base Excess ABG Hemoglobin Oxyhemoglobin Sodium Potassium Chloride Carbon Dioxide BUN Creatinine Glucose POC Glucose 113 H 126 H 115 H Lactic Acid Calcium Magnesium Iron TIBC Ferritin AST ALT Lactate Dehydrogenase Troponin T C-Reactive Protein Total Protein Albumin Prealbumin Cholesterol LDL Cholesterol Direct HDL Cholesterol Urine WBC (Auto) Vancomycin Trough Coronavirus (PCR) Crossmatch 08/10/19 08/11/19 08/12/19 Unknown 18:10 03:30 WBC 14.4 H RBC 2.58 L Hgb 7.4 L Hct 22.1 L MCV MCH MCHC RDW 17.4 H Plt Count 786 H Lymph % (Auto) [place] % (Auto) Lymph # [place] # Baso # Seg Neutrophils % Seg Neuts % (Manual) Lymphocytes % (Manual) Monocytes % (Manual) Basophils % (Manual) Nucleated RBC % Seg Neutrophils # Seg Neutrophils # Man Lymphocytes # (Manual) Monocytes # (Manual) Eosinophils # (Manual) Basophils # (Manual) PT INR D-Dimer ABG pH ABG pO2 ABG HCO3 ABG O2 Saturation ABG Base Excess ABG Hemoglobin Oxyhemoglobin Sodium Potassium Chloride Carbon Dioxide BUN Creatinine Glucose POC Glucose 106 H Lactic Acid Calcium Magnesium Iron TIBC Ferritin AST ALT Lactate Dehydrogenase Troponin T C-Reactive Protein Total Protein Albumin Prealbumin Cholesterol LDL Cholesterol Direct HDL Cholesterol Urine WBC (Auto) Vancomycin Trough Coronavirus (PCR) Positive A Crossmatch 08/12/19 08/12/19 08/13/19 03:30 12:08 05:25 WBC RBC Hgb Hct MCV MCH MCHC RDW Plt Count Lymph % (Auto) [place] % (Auto) Lymph # [place] # Baso # Seg Neutrophils % Seg Neuts % (Manual) Lymphocytes % (Manual) Monocytes % (Manual) Basophils % (Manual) Nucleated RBC % Seg Neutrophils # Seg Neutrophils # Man Lymphocytes # (Manual) Monocytes # (Manual) Eosinophils # (Manual) Basophils # (Manual) PT INR D-Dimer ABG pH ABG pO2 ABG HCO3 ABG O2 Saturation ABG Base Excess ABG Hemoglobin Oxyhemoglobin Sodium Potassium Chloride Carbon Dioxide BUN 7 L Creatinine 0.3 L Glucose 117 H POC Glucose 112 H 126 H Lactic Acid Calcium 7.8 L Magnesium Iron TIBC Ferritin AST ALT Lactate Dehydrogenase Troponin T C-Reactive Protein Total Protein Albumin Prealbumin Cholesterol LDL Cholesterol Direct HDL Cholesterol Urine WBC (Auto) Vancomycin Trough Coronavirus (PCR) Crossmatch 08/13/19 08/13/19 08/13/19 11:36 17:10 19:06 WBC RBC Hgb Hct MCV MCH MCHC RDW Plt Count Lymph % (Auto) [place] % (Auto) Lymph # [place] # Baso # Seg Neutrophils % Seg Neuts % (Manual) Lymphocytes % (Manual) Monocytes % (Manual) Basophils % (Manual) Nucleated RBC % Seg Neutrophils # Seg Neutrophils # Man Lymphocytes # (Manual) Monocytes # (Manual) Eosinophils # (Manual) Basophils # (Manual) PT INR D-Dimer ABG pH ABG pO2 105.0 H ABG HCO3 28.5 H ABG O2 Saturation ABG Base Excess 3.5 H ABG Hemoglobin 7.8 L Oxyhemoglobin Sodium Potassium Chloride Carbon Dioxide BUN Creatinine Glucose POC Glucose 143 H 107 H Lactic Acid Calcium Magnesium Iron TIBC Ferritin AST ALT Lactate Dehydrogenase Troponin T C-Reactive Protein Total Protein Albumin Prealbumin Cholesterol LDL Cholesterol Direct HDL Cholesterol Urine WBC (Auto) Vancomycin Trough Coronavirus (PCR) Crossmatch 08/13/19 08/14/19 08/14/19 23:23 05:00 05:00 WBC 14.3 H RBC 2.76 L Hgb 7.8 L Hct 23.9 L MCV MCH MCHC RDW 18.7 H Plt Count 896 H Lymph % (Auto) [place] % (Auto) Lymph # [place] # Baso # Seg Neutrophils % Seg Neuts % (Manual) Lymphocytes % (Manual) Monocytes % (Manual) Basophils % (Manual) Nucleated RBC % Seg Neutrophils # Seg Neutrophils # Man Lymphocytes # (Manual) Monocytes # (Manual) Eosinophils # (Manual) Basophils # (Manual) PT INR D-Dimer ABG pH ABG pO2 ABG HCO3 ABG O2 Saturation ABG Base Excess ABG Hemoglobin Oxyhemoglobin Sodium Potassium Chloride Carbon Dioxide BUN 6 L Creatinine 0.3 L Glucose POC Glucose 125 H Lactic Acid Calcium 8.2 L Magnesium Iron TIBC Ferritin AST ALT Lactate Dehydrogenase Troponin T C-Reactive Protein Total Protein Albumin Prealbumin Cholesterol LDL Cholesterol Direct HDL Cholesterol Urine WBC (Auto) Vancomycin Trough Coronavirus (PCR) Crossmatch 08/14/19 08/15/19 08/15/19 05:07 00:25 05:42 WBC RBC Hgb Hct MCV MCH MCHC RDW Plt Count Lymph % (Auto) [place] % (Auto) Lymph # [place] # Baso # Seg Neutrophils % Seg Neuts % (Manual) Lymphocytes % (Manual) Monocytes % (Manual) Basophils % (Manual) Nucleated RBC % Seg Neutrophils # Seg Neutrophils # Man Lymphocytes # (Manual) Monocytes # (Manual) Eosinophils # (Manual) Basophils # (Manual) PT INR D-Dimer ABG pH ABG pO2 ABG HCO3 ABG O2 Saturation ABG Base Excess ABG Hemoglobin Oxyhemoglobin Sodium Potassium Chloride Carbon Dioxide BUN Creatinine Glucose POC Glucose 128 H 117 H 115 H Lactic Acid Calcium Magnesium Iron TIBC Ferritin AST ALT Lactate Dehydrogenase Troponin T C-Reactive Protein Total Protein Albumin Prealbumin Cholesterol LDL Cholesterol Direct HDL Cholesterol Urine WBC (Auto) Vancomycin Trough Coronavirus (PCR) Crossmatch 08/15/19 08/15/19 08/15/19 06:10 06:10 06:10 WBC 11.6 H RBC 2.68 L Hgb 7.7 L Hct 23.3 L MCV MCH MCHC RDW 19.2 H Plt Count 885 H Lymph % (Auto) [place] % (Auto) Lymph # [place] # Baso # Seg Neutrophils % Seg Neuts % (Manual) Lymphocytes % (Manual) Monocytes % (Manual) Basophils % (Manual) Nucleated RBC % Seg Neutrophils # Seg Neutrophils # Man Lymphocytes # (Manual) Monocytes # (Manual) Eosinophils # (Manual) Basophils # (Manual) PT INR D-Dimer ABG pH ABG pO2 ABG HCO3 ABG O2 Saturation ABG Base Excess ABG Hemoglobin Oxyhemoglobin Sodium Potassium Chloride Carbon Dioxide BUN 6 L Creatinine 0.3 L Glucose 107 H POC Glucose Lactic Acid Calcium 8.2 L Magnesium 1.50 L Iron TIBC Ferritin AST ALT Lactate Dehydrogenase Troponin T C-Reactive Protein Total Protein Albumin Prealbumin Cholesterol LDL Cholesterol Direct HDL Cholesterol Urine WBC (Auto) Vancomycin Trough Coronavirus (PCR) Crossmatch 08/15/19 08/16/19 08/16/19 12:12 00:05 05:00 WBC 13.3 H RBC 2.87 L Hgb 8.1 L Hct 24.9 L MCV MCH MCHC RDW 18.7 H Plt Count 962 H Lymph % (Auto) [place] % (Auto) Lymph # [place] # Baso # Seg Neutrophils % Seg Neuts % (Manual) Lymphocytes % (Manual) Monocytes % (Manual) Basophils % (Manual) Nucleated RBC % Seg Neutrophils # Seg Neutrophils # Man Lymphocytes # (Manual) Monocytes # (Manual) Eosinophils # (Manual) Basophils # (Manual) PT INR D-Dimer ABG pH ABG pO2 ABG HCO3 ABG O2 Saturation ABG Base Excess ABG Hemoglobin Oxyhemoglobin Sodium Potassium Chloride Carbon Dioxide BUN Creatinine Glucose POC Glucose 112 H 111 H Lactic Acid Calcium Magnesium Iron TIBC Ferritin AST ALT Lactate Dehydrogenase Troponin T C-Reactive Protein Total Protein Albumin Prealbumin Cholesterol LDL Cholesterol Direct HDL Cholesterol Urine WBC (Auto) Vancomycin Trough Coronavirus (PCR) Crossmatch 08/16/19 08/16/19 08/16/19 05:00 05:00 23:35 WBC RBC Hgb Hct MCV MCH MCHC RDW Plt Count Lymph % (Auto) [place] % (Auto) Lymph # [place] # Baso # Seg Neutrophils % Seg Neuts % (Manual) Lymphocytes % (Manual) Monocytes % (Manual) Basophils % (Manual) Nucleated RBC % Seg Neutrophils # Seg Neutrophils # Man Lymphocytes # (Manual) Monocytes # (Manual) Eosinophils # (Manual) Basophils # (Manual) PT INR D-Dimer ABG pH ABG pO2 ABG HCO3 ABG O2 Saturation ABG Base Excess ABG Hemoglobin Oxyhemoglobin Sodium 135 L Potassium Chloride Carbon Dioxide BUN 6 L Creatinine 0.3 L Glucose POC Glucose 108 H Lactic Acid Calcium 8.2 L Magnesium Iron TIBC Ferritin AST ALT Lactate Dehydrogenase Troponin T C-Reactive Protein 2.70 H Total Protein Albumin 2.1 L Prealbumin Cholesterol LDL Cholesterol Direct HDL Cholesterol Urine WBC (Auto) Vancomycin Trough Coronavirus (PCR) Crossmatch 08/17/19 08/17/19 08/17/19 05:15 20:20 23:42 WBC RBC Hgb Hct MCV MCH MCHC RDW Plt Count Lymph % (Auto) [place] % (Auto) Lymph # [place] # Baso # Seg Neutrophils % Seg Neuts % (Manual) Lymphocytes % (Manual) Monocytes % (Manual) Basophils % (Manual) Nucleated RBC % Seg Neutrophils # Seg Neutrophils # Man Lymphocytes # (Manual) Monocytes # (Manual) Eosinophils # (Manual) Basophils # (Manual) PT INR D-Dimer ABG pH ABG pO2 ABG HCO3 27.8 H ABG O2 Saturation ABG Base Excess ABG Hemoglobin 11.4 L Oxyhemoglobin 94.6 L Sodium Potassium Chloride Carbon Dioxide BUN Creatinine Glucose POC Glucose 138 H 132 H Lactic Acid Calcium Magnesium Iron TIBC Ferritin AST ALT Lactate Dehydrogenase Troponin T C-Reactive Protein Total Protein Albumin Prealbumin Cholesterol LDL Cholesterol Direct HDL Cholesterol Urine WBC (Auto) Vancomycin Trough Coronavirus (PCR) Crossmatch 08/18/19 08/18/19 08/18/19 06:00 06:00 12:02 WBC 19.7 H RBC 3.30 L Hgb 9.3 L Hct 28.5 L MCV MCH MCHC RDW 18.9 H Plt Count 923 H Lymph % (Auto) [place] % (Auto) Lymph # [place] # Baso # Seg Neutrophils % Seg Neuts % (Manual) Lymphocytes % (Manual) Monocytes % (Manual) Basophils % (Manual) Nucleated RBC % Seg Neutrophils # Seg Neutrophils # Man Lymphocytes # (Manual) Monocytes # (Manual) Eosinophils # (Manual) Basophils # (Manual) PT INR D-Dimer ABG pH ABG pO2 ABG HCO3 ABG O2 Saturation ABG Base Excess ABG Hemoglobin Oxyhemoglobin Sodium 136 L Potassium Chloride Carbon Dioxide BUN Creatinine 0.4 L Glucose 71 L POC Glucose 123 H Lactic Acid Calcium Magnesium Iron TIBC Ferritin AST ALT Lactate Dehydrogenase Troponin T C-Reactive Protein Total Protein Albumin Prealbumin Cholesterol LDL Cholesterol Direct HDL Cholesterol Urine WBC (Auto) Vancomycin Trough Coronavirus (PCR) Crossmatch 08/18/19 08/18/19 08/19/19 18:23 23:16 04:57 WBC RBC Hgb Hct MCV MCH MCHC RDW Plt Count Lymph % (Auto) [place] % (Auto) Lymph # [place] # Baso # Seg Neutrophils % Seg Neuts % (Manual) Lymphocytes % (Manual) Monocytes % (Manual) Basophils % (Manual) Nucleated RBC % Seg Neutrophils # Seg Neutrophils # Man Lymphocytes # (Manual) Monocytes # (Manual) Eosinophils # (Manual) Basophils # (Manual) PT INR D-Dimer ABG pH ABG pO2 ABG HCO3 ABG O2 Saturation ABG Base Excess ABG Hemoglobin Oxyhemoglobin Sodium Potassium Chloride Carbon Dioxide BUN Creatinine Glucose POC Glucose 140 H 159 H 134 H Lactic Acid Calcium Magnesium Iron TIBC Ferritin AST ALT Lactate Dehydrogenase Troponin T C-Reactive Protein Total Protein Albumin Prealbumin Cholesterol LDL Cholesterol Direct HDL Cholesterol Urine WBC (Auto) Vancomycin Trough Coronavirus (PCR) Crossmatch 08/19/19 08/19/19 08/19/19 07:44 08:17 18:15 WBC 30.5 H RBC 2.87 L Hgb 7.9 L Hct 24.5 L MCV MCH MCHC RDW 18.8 H Plt Count 772 H Lymph % (Auto) [place] % (Auto) Lymph # [place] # Baso # Seg Neutrophils % Seg Neuts % (Manual) 89.0 H Lymphocytes % (Manual) 4.0 L Monocytes % (Manual) Basophils % (Manual) 2.0 H Nucleated RBC % Seg Neutrophils # Seg Neutrophils # Man 27.1 H Lymphocytes # (Manual) Monocytes # (Manual) 0.9 H Eosinophils # (Manual) 0.6 H Basophils # (Manual) 0.6 H PT INR D-Dimer ABG pH ABG pO2 ABG HCO3 ABG O2 Saturation ABG Base Excess ABG Hemoglobin Oxyhemoglobin Sodium 136 L Potassium Chloride Carbon Dioxide BUN Creatinine 0.3 L Glucose POC Glucose 106 H Lactic Acid Calcium 8.2 L Magnesium Iron TIBC Ferritin AST ALT Lactate Dehydrogenase Troponin T C-Reactive Protein Total Protein Albumin Prealbumin Cholesterol LDL Cholesterol Direct HDL Cholesterol Urine WBC (Auto) Vancomycin Trough Coronavirus (PCR) Crossmatch 08/19/19 08/20/19 08/20/19 23:46 06:20 18:34 WBC RBC Hgb Hct MCV MCH MCHC RDW Plt Count Lymph % (Auto) [place] % (Auto) Lymph # [place] # Baso # Seg Neutrophils % Seg Neuts % (Manual) Lymphocytes % (Manual) Monocytes % (Manual) Basophils % (Manual) Nucleated RBC % Seg Neutrophils # Seg Neutrophils # Man Lymphocytes # (Manual) Monocytes # (Manual) Eosinophils # (Manual) Basophils # (Manual) PT INR D-Dimer ABG pH ABG pO2 ABG HCO3 ABG O2 Saturation ABG Base Excess ABG Hemoglobin Oxyhemoglobin Sodium Potassium Chloride Carbon Dioxide BUN Creatinine Glucose POC Glucose 144 H 115 H 125 H Lactic Acid Calcium Magnesium Iron TIBC Ferritin AST ALT Lactate Dehydrogenase Troponin T C-Reactive Protein Total Protein Albumin Prealbumin Cholesterol LDL Cholesterol Direct HDL Cholesterol Urine WBC (Auto) Vancomycin Trough Coronavirus (PCR) Crossmatch 08/20/19 08/20/19 08/21/19 Unknown Unknown 11:56 WBC 18.7 H RBC 2.70 L Hgb 7.6 L Hct 23.1 L MCV MCH MCHC RDW 18.9 H Plt Count 690 H Lymph % (Auto) [place] % (Auto) Lymph # [place] # Baso # Seg Neutrophils % Seg Neuts % (Manual) Lymphocytes % (Manual) Monocytes % (Manual) Basophils % (Manual) Nucleated RBC % Seg Neutrophils # Seg Neutrophils # Man Lymphocytes # (Manual) Monocytes # (Manual) Eosinophils # (Manual) Basophils # (Manual) PT INR D-Dimer ABG pH ABG pO2 ABG HCO3 ABG O2 Saturation ABG Base Excess ABG Hemoglobin Oxyhemoglobin Sodium 134 L Potassium Chloride 97.9 L Carbon Dioxide BUN Creatinine 0.3 L Glucose 115 H POC Glucose 116 H Lactic Acid Calcium 8.2 L Magnesium Iron TIBC Ferritin AST ALT Lactate Dehydrogenase Troponin T C-Reactive Protein Total Protein Albumin Prealbumin Cholesterol LDL Cholesterol Direct HDL Cholesterol Urine WBC (Auto) Vancomycin Trough Coronavirus (PCR) Crossmatch 08/21/19 08/22/19 08/22/19 18:14 00:31 05:53 WBC RBC Hgb Hct MCV MCH MCHC RDW Plt Count Lymph % (Auto) [place] % (Auto) Lymph # [place] # Baso # Seg Neutrophils % Seg Neuts % (Manual) Lymphocytes % (Manual) Monocytes % (Manual) Basophils % (Manual) Nucleated RBC % Seg Neutrophils # Seg Neutrophils # Man Lymphocytes # (Manual) Monocytes # (Manual) Eosinophils # (Manual) Basophils # (Manual) PT INR D-Dimer ABG pH ABG pO2 ABG HCO3 ABG O2 Saturation ABG Base Excess ABG Hemoglobin Oxyhemoglobin Sodium Potassium Chloride Carbon Dioxide BUN Creatinine Glucose POC Glucose 113 H 106 H 109 H Lactic Acid Calcium Magnesium Iron TIBC Ferritin AST ALT Lactate Dehydrogenase Troponin T C-Reactive Protein Total Protein Albumin Prealbumin Cholesterol LDL Cholesterol Direct HDL Cholesterol Urine WBC (Auto) Vancomycin Trough Coronavirus (PCR) Crossmatch 08/22/19 08/23/19 08/23/19 18:35 00:18 06:00 WBC 12.3 H RBC 2.92 L Hgb 8.0 L Hct 24.6 L MCV MCH MCHC RDW 18.5 H Plt Count 661 H Lymph % (Auto) 11.7 L [place] % (Auto) 9.2 H Lymph # [place] # 1.1 H Baso # Seg Neutrophils % 75.6 H Seg Neuts % (Manual) Lymphocytes % (Manual) Monocytes % (Manual) Basophils % (Manual) Nucleated RBC % Seg Neutrophils # 9.3 H Seg Neutrophils # Man Lymphocytes # (Manual) Monocytes # (Manual) Eosinophils # (Manual) Basophils # (Manual) PT INR D-Dimer ABG pH ABG pO2 ABG HCO3 ABG O2 Saturation ABG Base Excess ABG Hemoglobin Oxyhemoglobin Sodium Potassium Chloride Carbon Dioxide BUN Creatinine Glucose POC Glucose 130 H 124 H Lactic Acid Calcium Magnesium Iron TIBC Ferritin AST ALT Lactate Dehydrogenase Troponin T C-Reactive Protein Total Protein Albumin Prealbumin Cholesterol LDL Cholesterol Direct HDL Cholesterol Urine WBC (Auto) Vancomycin Trough Coronavirus (PCR) Crossmatch 08/23/19 08/23/19 08/24/19 06:09 17:46 00:04 WBC RBC Hgb Hct MCV MCH MCHC RDW Plt Count Lymph % (Auto) [place] % (Auto) Lymph # [place] # Baso # Seg Neutrophils % Seg Neuts % (Manual) Lymphocytes % (Manual) Monocytes % (Manual) Basophils % (Manual) Nucleated RBC % Seg Neutrophils # Seg Neutrophils # Man Lymphocytes # (Manual) Monocytes # (Manual) Eosinophils # (Manual) Basophils # (Manual) PT INR D-Dimer ABG pH ABG pO2 ABG HCO3 ABG O2 Saturation ABG Base Excess ABG Hemoglobin Oxyhemoglobin Sodium Potassium Chloride Carbon Dioxide BUN Creatinine Glucose POC Glucose 117 H 125 H 113 H Lactic Acid Calcium Magnesium Iron TIBC Ferritin AST ALT Lactate Dehydrogenase Troponin T C-Reactive Protein Total Protein Albumin Prealbumin Cholesterol LDL Cholesterol Direct HDL Cholesterol Urine WBC (Auto) Vancomycin Trough Coronavirus (PCR) Crossmatch 08/24/19 08/24/19 08/24/19 05:34 12:28 17:32 WBC RBC Hgb Hct MCV MCH MCHC RDW Plt Count Lymph % (Auto) [place] % (Auto) Lymph # [place] # Baso # Seg Neutrophils % Seg Neuts % (Manual) Lymphocytes % (Manual) Monocytes % (Manual) Basophils % (Manual) Nucleated RBC % Seg Neutrophils # Seg Neutrophils # Man Lymphocytes # (Manual) Monocytes # (Manual) Eosinophils # (Manual) Basophils # (Manual) PT INR D-Dimer ABG pH ABG pO2 ABG HCO3 ABG O2 Saturation ABG Base Excess ABG Hemoglobin Oxyhemoglobin Sodium Potassium Chloride Carbon Dioxide BUN Creatinine Glucose POC Glucose 128 H 127 H 116 H Lactic Acid Calcium Magnesium Iron TIBC Ferritin AST ALT Lactate Dehydrogenase Troponin T C-Reactive Protein Total Protein Albumin Prealbumin Cholesterol LDL Cholesterol Direct HDL Cholesterol Urine WBC (Auto) Vancomycin Trough Coronavirus (PCR) Crossmatch 08/24/19 08/25/19 08/25/19 23:41 05:37 12:30 WBC RBC Hgb Hct MCV MCH MCHC RDW Plt Count Lymph % (Auto) [place] % (Auto) Lymph # [place] # Baso # Seg Neutrophils % Seg Neuts % (Manual) Lymphocytes % (Manual) Monocytes % (Manual) Basophils % (Manual) Nucleated RBC % Seg Neutrophils # Seg Neutrophils # Man Lymphocytes # (Manual) Monocytes # (Manual) Eosinophils # (Manual) Basophils # (Manual) PT INR D-Dimer ABG pH ABG pO2 ABG HCO3 ABG O2 Saturation ABG Base Excess ABG Hemoglobin Oxyhemoglobin Sodium Potassium Chloride Carbon Dioxide BUN Creatinine Glucose POC Glucose 107 H 129 H 110 H Lactic Acid Calcium Magnesium Iron TIBC Ferritin AST ALT Lactate Dehydrogenase Troponin T C-Reactive Protein Total Protein Albumin Prealbumin Cholesterol LDL Cholesterol Direct HDL Cholesterol Urine WBC (Auto) Vancomycin Trough Coronavirus (PCR) Crossmatch 08/25/19 08/25/19 08/26/19 17:49 23:55 05:35 WBC RBC Hgb Hct MCV MCH MCHC RDW Plt Count Lymph % (Auto) [place] % (Auto) Lymph # [place] # Baso # Seg Neutrophils % Seg Neuts % (Manual) Lymphocytes % (Manual) Monocytes % (Manual) Basophils % (Manual) Nucleated RBC % Seg Neutrophils # Seg Neutrophils # Man Lymphocytes # (Manual) Monocytes # (Manual) Eosinophils # (Manual) Basophils # (Manual) PT INR D-Dimer ABG pH ABG pO2 ABG HCO3 ABG O2 Saturation ABG Base Excess ABG Hemoglobin Oxyhemoglobin Sodium Potassium Chloride Carbon Dioxide BUN Creatinine Glucose POC Glucose 107 H 137 H 117 H Lactic Acid Calcium Magnesium Iron TIBC Ferritin AST ALT Lactate Dehydrogenase Troponin T C-Reactive Protein Total Protein Albumin Prealbumin Cholesterol LDL Cholesterol Direct HDL Cholesterol Urine WBC (Auto) Vancomycin Trough Coronavirus (PCR) Crossmatch 08/27/19 08/27/19 08/27/19 00:59 06:01 07:21 WBC 11.6 H RBC 3.15 L Hgb 8.3 L Hct 26.1 L MCV 83 L MCH 26 L MCHC RDW 18.6 H Plt Count 743 H Lymph % (Auto) 11.8 L [place] % (Auto) 8.8 H Lymph # [place] # 1.0 H Baso # Seg Neutrophils % 75.3 H Seg Neuts % (Manual) Lymphocytes % (Manual) Monocytes % (Manual) Basophils % (Manual) Nucleated RBC % Seg Neutrophils # 8.7 H Seg Neutrophils # Man Lymphocytes # (Manual) Monocytes # (Manual) Eosinophils # (Manual) Basophils # (Manual) PT INR D-Dimer ABG pH ABG pO2 ABG HCO3 ABG O2 Saturation ABG Base Excess ABG Hemoglobin Oxyhemoglobin Sodium Potassium Chloride Carbon Dioxide BUN Creatinine Glucose POC Glucose 126 H 134 H Lactic Acid Calcium Magnesium Iron TIBC Ferritin AST ALT Lactate Dehydrogenase Troponin T C-Reactive Protein Total Protein Albumin Prealbumin Cholesterol LDL Cholesterol Direct HDL Cholesterol Urine WBC (Auto) Vancomycin Trough Coronavirus (PCR) Crossmatch 08/27/19 08/27/19 08/28/19 07:21 18:05 00:37 WBC RBC Hgb Hct MCV MCH MCHC RDW Plt Count Lymph % (Auto) [place] % (Auto) Lymph # [place] # Baso # Seg Neutrophils % Seg Neuts % (Manual) Lymphocytes % (Manual) Monocytes % (Manual) Basophils % (Manual) Nucleated RBC % Seg Neutrophils # Seg Neutrophils # Man Lymphocytes # (Manual) Monocytes # (Manual) Eosinophils # (Manual) Basophils # (Manual) PT INR D-Dimer ABG pH ABG pO2 ABG HCO3 ABG O2 Saturation ABG Base Excess ABG Hemoglobin Oxyhemoglobin Sodium 132 L Potassium 5.1 H Chloride 97.6 L Carbon Dioxide BUN Creatinine 0.3 L Glucose 119 H POC Glucose 127 H 106 H Lactic Acid Calcium Magnesium Iron TIBC Ferritin AST ALT Lactate Dehydrogenase Troponin T C-Reactive Protein Total Protein Albumin Prealbumin Cholesterol LDL Cholesterol Direct HDL Cholesterol Urine WBC (Auto) Vancomycin Trough Coronavirus (PCR) Crossmatch 08/28/19 08/29/19 08/29/19 18:14 00:01 12:16 WBC RBC Hgb Hct MCV MCH MCHC RDW Plt Count Lymph % (Auto) [place] % (Auto) Lymph # [place] # Baso # Seg Neutrophils % Seg Neuts % (Manual) Lymphocytes % (Manual) Monocytes % (Manual) Basophils % (Manual) Nucleated RBC % Seg Neutrophils # Seg Neutrophils # Man Lymphocytes # (Manual) Monocytes # (Manual) Eosinophils # (Manual) Basophils # (Manual) PT INR D-Dimer ABG pH ABG pO2 ABG HCO3 ABG O2 Saturation ABG Base Excess ABG Hemoglobin Oxyhemoglobin Sodium Potassium Chloride Carbon Dioxide BUN Creatinine Glucose POC Glucose 115 H 146 H 107 H Lactic Acid Calcium Magnesium Iron TIBC Ferritin AST ALT Lactate Dehydrogenase Troponin T C-Reactive Protein Total Protein Albumin Prealbumin Cholesterol LDL Cholesterol Direct HDL Cholesterol Urine WBC (Auto) Vancomycin Trough Coronavirus (PCR) Crossmatch 08/30/19 08/30/19 05:10 05:10 WBC 12.3 H RBC 3.01 L Hgb 8.0 L Hct 25.1 L MCV MCH 27 L MCHC RDW 19.3 H Plt Count 709 H Lymph % (Auto) 8.9 L [place] % (Auto) Lymph # 1.1 L [place] # Baso # Seg Neutrophils % 82.7 H Seg Neuts % (Manual) Lymphocytes % (Manual) Monocytes % (Manual) Basophils % (Manual) Nucleated RBC % Seg Neutrophils # 10.1 H Seg Neutrophils # Man Lymphocytes # (Manual) Monocytes # (Manual) Eosinophils # (Manual) Basophils # (Manual) PT INR D-Dimer ABG pH ABG pO2 ABG HCO3 ABG O2 Saturation ABG Base Excess ABG Hemoglobin Oxyhemoglobin Sodium 133 L Potassium Chloride 97.8 L Carbon Dioxide BUN Creatinine 0.3 L Glucose POC Glucose Lactic Acid Calcium Magnesium 1.50 L Iron TIBC Ferritin AST ALT Lactate Dehydrogenase Troponin T C-Reactive Protein Total Protein Albumin 2.4 L Prealbumin Cholesterol LDL Cholesterol Direct HDL Cholesterol Urine WBC (Auto) Vancomycin Trough Coronavirus (PCR) Crossmatch Allied health notes reviewed: nursing
[2019-08-30] MEDS: FOLIC ACID 1 MG TAB PO SCH (10:02)
[2019-08-30] MEDS: FAMOTIDINE 20 MG TAB PO SCH ×2 (10:03→22:31)
[2019-08-30] MEDS: SCOPOLAMINE TRANSDERMAL PATCH 72 HR TD SCH (10:03)
[2019-08-30] MEDS: ASPIRIN 81 MG TAB CHEW PO SCH (10:03)
[2019-08-30] MEDS: DOCUSATE SODIUM 100 MG/10 ML ORAL LIQD PO SCH ×2 (10:03→22:31)
[2019-08-30] MEDS: ENOXAPARIN 40 MG/0.4 ML INJ SUB-Q SCH (10:03)
[2019-08-30] MEDS: GLYCOPYRROLATE 1 MG TAB PO SCH ×3 (10:03→22:32)
[2019-08-30] MEDS: levETIRAcetam 500 MG/5 ML ORAL LIQD FEEDTUBE SCH ×2 (10:04→22:31)
[2019-08-30] MEDS: fentaNYL 25 MCG/HR PATCH 72HR TD SCH (10:04)
[2019-08-30] MEDS: METOPROLOL TARTRATE 25 MG TAB PO SCH ×2 (10:04→22:33)
[2019-08-30] MEDS: SODIUM HYPOCHLORITE, DAKIN'S 1/2 STRENGTH (0.25%) 473 ML TOPICAL SOLN TP SCH (10:05)
--- NOTE | 2019-08-30 13:23 | Progress Note ---
Assessment and Plan 69 yo M with 1. VDRF 2. COVID+ PNA 3. Worsening leukocytosis 4. Osteomyelitis of left ischium and sacrum, along with stage IV decubitus ulcers 5. Bedbound 6. Protein calorie malnutrition 7. Ileus Patient has been in the hospital since 07/04/2019 and remains on the ventilator. NG tube output has been clear and the patient has had a bowel movement since starting bowel regimen. Abdomen is soft and unremarkable. Plan: 1. May resume tube feeding 2. Continue bowel regimen 3. Trach and PEG scheduled for tomorrow afternoon. Will make n.p.o. past midnight tonight 4. Plan for tracheostomy and PEG tube discussed with the patient's Mrs. Abdullahi over the phone. I updated her and let her know that the patient is now COVID negative and that we may proceed with the procedures. She is still agreeable to proceed and wants to continue aggressive treatment. Consent was obtained. Thank you, please call with questions or concerns. Evaluation and treatment of this patient was during the time of the national and state emergency arising from COVID19 coronavirus pandemic. Treatment and procedures performed meet the current and available best practice and guidelines for patient during the COVID pandemic. Subjective Date of service: 08/30/19 Narrative: Patient seen and examined. No change from previous condition. No acute events noted. Per nursing documentation the patient had 1 bowel movement Objective Vital Signs - 12hr 08/30/19 08/30/19 08/30/19 02:00 03:00 04:00 Temperature 98.9 F Pulse Rate 84 84 84 Pulse Rate [ 80 From Monitor] Respiratory 12 12 16 Rate Blood Pressure 111/66 111/66 114/62 O2 Sat by Pulse 100 99 100 Oximetry 08/30/19 08/30/19 08/30/19 05:00 06:00 07:00 Temperature Pulse Rate 80 65 82 Pulse Rate [ From Monitor] Respiratory 14 15 13 Rate Blood Pressure 114/62 96/57 108/65 O2 Sat by Pulse 100 100 100 Oximetry 08/30/19 08/30/19 08/30/19 08:00 08:15 09:00 Temperature 98.2 F Pulse Rate 83 65 101 H Pulse Rate [ 80 From Monitor] Respiratory 13 15 17 Rate Blood Pressure 122/67 96/57 110/65 O2 Sat by Pulse 100 100 99 Oximetry 08/30/19 08/30/19 08/30/19 10:00 10:04 11:00 Temperature Pulse Rate 102 H 103 H 95 H Pulse Rate [ From Monitor] Respiratory 21 17 15 Rate Blood Pressure 123/64 123/64 118/65 O2 Sat by Pulse 98 97 Oximetry 08/30/19 08/30/19 08/30/19 11:04 11:44 12:00 Temperature 99.8 F H Pulse Rate 103 H 97 H Pulse Rate [ 89 From Monitor] Respiratory 16 33 H 14 Rate Blood Pressure 123/64 97/54 O2 Sat by Pulse 100 96 Oximetry - General physical appearance Narrative Exam: General: Intubated on vent, does not follow commands ENT: ET tube and NG tube in place. NG tube drainage is clear. CV: S1, S2 present respiratory: On vent, no wheezes Abdomen: Soft, nontender, nondistended Extremities: Severely contracted upper and lower extremities - Labs 08/30/19 05:10 08/30/19 05:10 Diabetes panel 08/30/19 Range/Units 05:10 Sodium 133 L (137-145) mmol/L Potassium 4.3 (3.6-5.0) mmol/L Chloride 97.8 L (98-107) mmol/L Carbon Dioxide 26 (22-30) mmol/L BUN 12 (9-20) mg/dL Creatinine 0.3 L (0.8-1.5) mg/dL Glucose 87 (75-100) mg/dL Calcium 9.3 (8.4-10.2) mg/dL AST 28 (5-40) units/L ALT 22 (7-56) units/L Alkaline Phosphatase 82 (35-129) units/L Total Protein 8.1 (6.3-8.2) g/dL Albumin 2.4 L (3.9-5) g/dL Calcium panel 08/30/19 Range/Units 05:10 Calcium 9.3 (8.4-10.2) mg/dL Phosphorus 3.90 (2.5-4.5) mg/dL Albumin 2.4 L (3.9-5) g/dL Pituitary panel 08/30/19 Range/Units 05:10 Sodium 133 L (137-145) mmol/L Potassium 4.3 (3.6-5.0) mmol/L Chloride 97.8 L (98-107) mmol/L Carbon Dioxide 26 (22-30) mmol/L BUN 12 (9-20) mg/dL Creatinine 0.3 L (0.8-1.5) mg/dL Glucose 87 (75-100) mg/dL Calcium 9.3 (8.4-10.2) mg/dL Adrenal panel 08/30/19 Range/Units 05:10 Sodium 133 L (137-145) mmol/L Potassium 4.3 (3.6-5.0) mmol/L Chloride 97.8 L (98-107) mmol/L Carbon Dioxide 26 (22-30) mmol/L BUN 12 (9-20) mg/dL Creatinine 0.3 L (0.8-1.5) mg/dL Glucose 87 (75-100) mg/dL Calcium 9.3 (8.4-10.2) mg/dL Total Bilirubin 0.40 (0.1-1.2) mg/dL AST 28 (5-40) units/L ALT 22 (7-56) units/L Alkaline Phosphatase 82 (35-129) units/L Total Protein 8.1 (6.3-8.2) g/dL Albumin 2.4 L (3.9-5) g/dL
--- NOTE | 2019-08-30 14:08 | Progress Note ---
Assessment and Plan Cultures: 07/03/2019 urine culture: No growth 07/03/2019 Tracheal aspirate: E.coli 07/29/2019 urine culture: neg 07/30/2019 blood culture: no growth tracheal asp + Pseudomonas 08/06/2019 blood culture: no growth 08/09/2019 Wound MDR Enterobacter 08/16/2019 blood culture: no growth to date 08/20/2019 COVID-19 PCR: negative A/P: 69-year-old male with CVA, hypertension, dementia, schizophrenia, alcohol use disorder was admitted to the emergency room after being brought in by EMS with progressive shortness of breath and unresponsiveness. He was noted to have agonal breathing and a faint pulse requiring CPR. It seems patient was on hospice recently, prior to admission. #Shock, likely septic: shock resolved, remains off pressors. still intermittent fever, leukocytosis worse again: bacterial pneumonia vs sacral decubitus infection. #Non-resolving pneumonia/Cavitary pneumonia: ? abscess. Sputum +Pseudomonas. CT shows RUL pneumonia with 2.4 cm cavity and LLL pneumonia with moderate left pleural effusion. No need for thoracentesis per Pulm. #Penile/scrotal and buttocks wounds: ?cellulitis #Sacral decubitus: worsening on last exam ? necrotic. Evaluated for surgery, no indications for intervention. 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 bleeding overnight s/p surgical management bedside, 08/09/2019 Wound MDR Enterobacter likely a colonizer (superficial wound cx) #UTI: per documentation initial carroll placed on 07/03, exchanged on 07/31. #Severe COVID-19 disease and pneumonia: Markers improving. Completed Plaquenil. Completed Ceftriaxone for treatment E.coli in tracheal aspirate. Repeat COVID finally negative on 08/20/2019. #Acute respiratory failure: remains on mechanical ventilation. #Multiple skin tears documented on admission #Anemia: from sacral wound bleeding Recs: Monitor off medication for now. Afebrile today. WBC Stable. Overall prognosis is extremely poor. Continue wound care Mekhi Barboza MD [facility] M: [phone] O: [phone] F: [phone] Subjective Date of service: 08/30/19 Principal diagnosis: Bilateral pneumonia, severe sepsis with septic shock, encephalopathy Interval history: Afebrile, no acute change today. Objective - Exam Narrative Exam: Narrative Exam: Physical Exam (reviewed in chart due to PPE conservation) Constitutional: intubated, sedated, on the vent Head, Ears, Nose: normocephalic, atraumatic Eyes: limited due to PPE conservation strategy Neck: intubated Oral: intubated Cardiovascular: limited due to PPE conservation strategy Respiratory: limited due to PPE conservation strategy GI: limited due to PPE conservation strategy Musculoskeletal: limited due to PPE conservation strategy Skin: limited due to PPE conservation strategy. Decubitus + Hem/Lymphatic: limited due to PPE conservation strategy Psych: no agitation Neurological: sedated, intubated, on the vent, exam limited - Constitutional Vitals: Vital Signs Temp Pulse Resp BP Pulse Ox 99.8 F H 89 17 97/54 100 08/30/19 12:00 08/30/19 12:00 08/30/19 12:00 08/30/19 12:00 08/30/19 12:00 Temperature -Last 24 Hours Temperature 99.8 F Temperature 98.2 F Temperature 98.9 F Temperature 99.3 F Temperature 99.6 F Temperature 98.2 F - Labs CBC & Chem 7: 08/30/19 05:10 08/30/19 05:10 Labs: Abnormal lab results 08/29/19 08/30/19 08/30/19 Range/Units 12:16 05:10 05:10 WBC 12.3 H (4.5-11.0) K/mm3 RBC 3.01 L (3.65-5.03) M/mm3 Hgb 8.0 L (11.8-15.2) gm/dl Hct 25.1 L (35.5-45.6) % MCH 27 L (28-32) pg RDW 19.3 H (13.2-15.2) % Plt Count 709 H (140-440) K/mm3 Lymph % (Auto) 8.9 L (13.4-35.0) % Lymph # 1.1 L (1.2-5.4) K/mm3 Seg Neutrophils % 82.7 H (40.0-70.0) % Seg Neutrophils # 10.1 H (1.8-7.7) K/mm3 Sodium 133 L (137-145) mmol/L Chloride 97.8 L (98-107) mmol/L Creatinine 0.3 L (0.8-1.5) mg/dL POC Glucose 107 H (70-105) Magnesium 1.50 L (1.7-2.3) mg/dL Albumin 2.4 L (3.9-5) g/dL
[2019-08-30] MEDS: D5W/0.45% NACL/KCL 10 MEQ 10 MEQ/1,000 ML BAG IV SCH (14:11)
--- NOTE | 2019-08-30 15:42 | Progress Note ---
Assessment and Plan /Acute respiratory Failure with Hypoxia - Due to bilateral PNA with COVID 19 infection. -pulmonary critical care following -Continue scheduled labs, mechanical ventilation, supportive care as needed - Awaiting trach and PEG, scheduled for 08/31/2019 /COVid positive b/l pneumonia with severe sepsis -Possible abscess, no need for drianage per ID/pULM -Received Plaquenil and cefepime, -Currently patient is on Levaquin per ID 08/20/2019; hernandez PCR negative 08/10/2019; hernandez PCR positive 07/29/2019; hernandez PCR positive 07/04/2019; hernandez PCR positive /Adynamic ileus; on abdominal x-ray, -consulted surgery and recommended to resume tube feeding -Trach and PEG scheduled for 08/31/2019 /Vomitings: Probably secondary to high residuals -IV Zofran as needed, lowered the rate for tube feeding -Discussed with patient's nurse Acute metabolic encephalopathy -Likely due to respiratory arrest and severe sepsis with underlying advanced dementia - Hold Hyoscamine. monitor Troponins. -CT head unremarkable Shock, likely septic: Lactic acidosis -Levophed as needed, continue IV fluid COPD with exacerbation -Likely due to COVID-19 pneumonia -Continue scheduled nebs Anemia, Microcytic -due to iron deficiency - monitor H&H, transfused one unit Pressure Ulcers - buttocks, right lateral foot area - present upon admission - wound care consulted Hyponatremia, continue IV fluid DM type 2 - Accuchecks with sliding scale insulin HTN Essential, now hypotensive -relatively low BP - on IVF. monitor Seizure D/o/CVA/immobility/BIpolar D/o/SCZ chronic medical conditions - continue meds Severe PCM, TF for now, dietary following patient is DNR- Called and verified information Guarded prognosis, patient is critically ill Awaiting trach and PEG, and LTAC placement 07/04- 08/19: please see 08/[address] arana 08/20-08/28: please see 08/[address] Leyva 08/29: Resumed care. Remains on full ventilatory support mental status still unchanged. Continue supportive care. Monitor off antibiotics per ID. Resumed TF, plan for trach and PEG tomorrow. The high probability of a clinically significant, sudden or life threatening deterioration of the [respiratory, CVS, OFFSET SECOND PRESS OPERATOR] system(s) required my full and direct attention, intervention and personal management. The aggregate critical care time was [32] minutes. This time is in addition to time spent performing reported procedures but includes the following: [x] Data Review and interpretation [x] Patient assessment and monitoring of vital signs [x] Documentation [x] Medication orders and management Brief History: 69-year-old male with PMH of CVA with RHP, HTN, DM2, SCZ, Dementia, Alcohol use D/o, Seizure D/O, presents to the emergency department via EMS from home with progressive SOB and impending espiratory failure with an unresponsive episode. Apparently the patient was witnessed becoming unresponsive by family members. Reportedly, pt had just gotten a high dose of Hyoscamine When EMS got there, the patient was agonal breathing and had a faint pulse. No CPR was indicated per EMS. PT was intubated and received some IV fluid en route to the hospital. He was admitted for sepsis, b/l PNA, acute respiratory failure. Patient was tested positive for COVID19. Evaluated by ID , received antibiotics Plaquenil, and inflammatory markers were checked and followed. Patient continues to be hypotensive currently on Levophed, unable to wean- remains intubated on ventilatory support, critically ill, DNR status however family wants full treatment. Surgery evaluated recommend trach and PEG. need LTAC for discharge Physical exam: General appearance: Present: no acute distress, cachectic, other (On vent) - EENT Eyes: Present: PERRL, EOM intact - Neck Neck: Present: supple, normal ROM, other (ET tube and Dobbhoff in place) - Respiratory Respiratory effort: normal Respiratory: bilateral: diminished, negative: rales, rhonchi - Cardiovascular Rhythm: regular Heart Sounds: Present: S1 & S2 - Extremities Extremities: no ischemia, No edema - Abdominal General gastrointestinal: soft, non-tender, distended - Integumentary Integumentary: Present: clear, warm - Psychiatric Psychiatric: other (Intubated on vent) - Neurologic Neurologic: other (Intubated on vent) Subjective Date of service: 08/30/19 Principal diagnosis: Bilateral pneumonia, severe sepsis with septic shock, encephalopathy Interval history: Patient seen and examined. Medical records and medication list reviewed. No acute event overnight noted by the RN. Patient is now negative for COVID-19. Patient remains intubated on mechanical ventilation Discussed plan of care at bedside with patient's RN, DIONICIO. Objective - Constitutional Vitals: Vital Signs - 12hr 08/30/19 08/30/19 08/30/19 04:00 05:00 06:00 Temperature 98.9 F Pulse Rate 84 80 65 Pulse Rate [ 80 From Monitor] Respiratory 16 14 15 Rate Blood Pressure 114/62 114/62 96/57 O2 Sat by Pulse 100 100 100 Oximetry 08/30/19 08/30/19 08/30/19 07:00 08:00 08:15 Temperature 98.2 F Pulse Rate 82 83 65 Pulse Rate [ 80 From Monitor] Respiratory 13 13 15 Rate Blood Pressure 108/65 122/67 96/57 O2 Sat by Pulse 100 100 100 Oximetry 08/30/19 08/30/19 08/30/19 09:00 10:00 10:04 Temperature Pulse Rate 101 H 102 H 103 H Pulse Rate [ From Monitor] Respiratory 17 21 17 Rate Blood Pressure 110/65 123/64 123/64 O2 Sat by Pulse 99 98 Oximetry 08/30/19 08/30/19 08/30/19 11:00 11:04 11:44 Temperature Pulse Rate 95 H 103 H Pulse Rate [ From Monitor] Respiratory 15 16 33 H Rate Blood Pressure 118/65 123/64 O2 Sat by Pulse 97 100 Oximetry 08/30/19 08/30/19 08/30/19 12:00 13:00 14:00 Temperature 99.8 F H Pulse Rate 97 H 108 H 116 H Pulse Rate [ 89 From Monitor] Respiratory 14 16 22 Rate Blood Pressure 97/54 115/68 113/56 O2 Sat by Pulse 96 97 87 Oximetry 08/30/19 15:00 Temperature Pulse Rate 109 H Pulse Rate [ From Monitor] Respiratory 14 Rate Blood Pressure 109/63 O2 Sat by Pulse 98 Oximetry - Labs CBC & Chem 7: 08/30/19 05:10 08/30/19 05:10 Labs: Abnormal lab results 08/29/19 08/30/19 08/30/19 Range/Units 12:16 05:10 05:10 WBC 12.3 H (4.5-11.0) K/mm3 RBC 3.01 L (3.65-5.03) M/mm3 Hgb 8.0 L (11.8-15.2) gm/dl Hct 25.1 L (35.5-45.6) % MCH 27 L (28-32) pg RDW 19.3 H (13.2-15.2) % Plt Count 709 H (140-440) K/mm3 Lymph % (Auto) 8.9 L (13.4-35.0) % Lymph # 1.1 L (1.2-5.4) K/mm3 Seg Neutrophils % 82.7 H (40.0-70.0) % Seg Neutrophils # 10.1 H (1.8-7.7) K/mm3 Sodium 133 L (137-145) mmol/L Chloride 97.8 L (98-107) mmol/L Creatinine 0.3 L (0.8-1.5) mg/dL POC Glucose 107 H (70-105) Magnesium 1.50 L (1.7-2.3) mg/dL Albumin 2.4 L (3.9-5) g/dL HEART Score - HEART Score Troponin: Troponin T 0.013 ng/mL (0.00-0.029) 07/04/19 07:05
[2019-08-30] MEDS: oxyCODONE /ACETAMINOPHEN 5-325MG TAB PO PRN (15:54)
[2019-08-30] MEDS: POLYETHYLENE GLYCOL 3350 17 GM POWDER PO SCH (22:31)
[2019-08-31] MEDS: D5W/0.45% NACL/KCL 10 MEQ 10 MEQ/1,000 ML BAG IV SCH (05:09)
[2019-08-31] MEDS: INSULIN LISPRO 100 UNIT/ML SUB-Q SCH ×4 (05:10→18:24)
[2019-08-31] MEDS: SODIUM HYPOCHLORITE, DAKIN'S 1/2 STRENGTH (0.25%) 473 ML TOPICAL SOLN TP SCH ×2 (05:10→09:03)
[2019-08-31] MEDS: METOCLOPRAMIDE 10 MG/2 ML INJ IV SCH ×2 (06:21→15:57)
[2019-08-31] MEDS: DOCUSATE SODIUM 100 MG/10 ML ORAL LIQD PO SCH ×2 (09:02→21:24)
[2019-08-31] MEDS: ENOXAPARIN 40 MG/0.4 ML INJ SUB-Q SCH (09:02)
[2019-08-31] MEDS: FAMOTIDINE 20 MG TAB PO SCH ×2 (09:02→21:23)
[2019-08-31] MEDS: METOPROLOL TARTRATE 25 MG TAB PO SCH ×2 (09:02→21:23)
[2019-08-31] MEDS: GLYCOPYRROLATE 1 MG TAB PO SCH ×3 (09:02→21:23)
[2019-08-31] MEDS: levETIRAcetam 500 MG/5 ML ORAL LIQD FEEDTUBE SCH ×2 (09:02→21:23)
[2019-08-31] MEDS: FOLIC ACID 1 MG TAB PO SCH (09:02)
[2019-08-31] MEDS: ASPIRIN 81 MG TAB CHEW PO SCH (09:02)
[2019-08-31] MEDS ORDERED: ROCURONIUM 50 MG/5 ML INJ IV ONE (12:17)
[2019-08-31] MEDS ORDERED: MIDAZOLAM 2 MG/2 ML INJ ONE (12:17)
[2019-08-31] MEDS ORDERED: fentaNYL 100 MCG/2 ML INJ ONE (12:18)
[2019-08-31] MEDS ORDERED: propofoL 200 MG/20 ML VIAL IV ONE ×2 (12:18)
[2019-08-31] MEDS ORDERED: SODIUM CHLORIDE 0.9% 1000 ML 1,000 ML ONE (12:26)
--- NOTE | 2019-08-31 12:26 | Progress Note ---
Assessment and Plan S/p Cardiopulmonary arrest with ROSC Severe Sepsis with septic shock. Acute hypoxemic respiratory failure on MVS COVID-19 positive with elevated markers Bilateral pneumonia Elevated LFTs. Oropharyngeal dysphagia s/p PEG Acute kidney injury Decubitus ulcers-unstageable Moderate protein calorie malnutriton Glojhyly-od-vojvyq metabolic acidosis Leukocytosis Thrombocytosis-worse Microcytic anemia Continue with PSV as tolerated, full support at night Surgery for trach and PEG placement today CBC, BMP, CXR and ABG prn Supportive transfusions to keep HgB >7g/dL Continue all care as documented Discharge planning - continue airborne and contact isolation for COVID-19 - continue wound care per WCT - sedation prn for target RASS 0 to -1 - continue to wean supplemental oxygen for target O2 sat's > 90% - Daily SAT's and SBT assessment as tolerated - VAP bundle addressed - continue lung protective strategies - continue bronchodilators with pulmonary hygiene per RT - wean per pulmonary driven protocols otherwise - accuchecks with glycemic control per SSI (While critically ill target blood glucose of 140-180 mg/dL; avoid hypoglycemia) - continue to avoid benzodiazepines, reduce the possibility of delirium - prn analgesia per CPOT score - Maintenance of sleep-wake cycle, avoid delirium - continue enteral nutritional support at goal rate as tolerated - VTE prophylaxis-Enoxaparin -Stress ulcer prophylaxis- Famotidine - PT/OT/ROM exercises - continue mobility protocol, off loading and skin assessment for pressure ulcer prevention - Monitor hemodynamics closely -Wright catheter in this critically ill patient with unstageable sacral decubitus ulcer - continue other care per attending / other consultants - discharge planning ongoing concurrently .... Re-evaluate in am & prn CONDITION: CRITICAL PROGNOSIS: GUARDED CODE STATUS: DNAR The high probability of a clinically significant, sudden or life-threatening deterioration of the [respiratory ,cardiovascular, neurology] system(s) required my full and direct attention, intervention and personal management. The aggregate critical care time was [31] minutes without overlap. Time includes spent on; [x] Data Review and interpretation [x] Patient assessment and monitoring of vital signs [x] Documentation [x] Medication orders and management Subjective Date of service: 08/31/19 Principal diagnosis: Bilateral pneumonia, severe sepsis with septic shock, en cephalopathy Interval history: The patient is a 69-year-old male with CVA, hypertension, dementia, schizophrenia, alcohol use disorder was admitted to the emergency room after being brought in by EMS with progressive shortness of breath and unresponsiveness. He was noted to have agonal breathing and a faint pulse requiring CPR. Patient was intubated and brought to the hospital. It seems, patient was on home hospice. Currently, remains critically ill, intubated, on mechanical ventilation. His COVID test resulted positive. Seen and examined at bedside; 24hour events reviewed; nursing and respiratory care staff consulted; no adverse overnight events reported to me; resting in bed.No fevers; On MVS , tolerating daily PSV trials at this time; on fentanyl at 1mcg, off vasopressors Tolerating tube feedings, Mental status changes persist, will spontaneously open eyes COVID negative; For trach and PEG placement today Objective Vital Signs - 12hr 08/31/19 08/31/19 08/31/19 01:00 02:00 03:00 Temperature Pulse Rate 90 90 91 H Pulse Rate [ From Monitor] Respiratory 18 15 18 Rate Blood Pressure 80/41 99/45 96/50 O2 Sat by Pulse 99 100 97 Oximetry 08/31/19 08/31/19 08/31/19 03:12 04:00 04:39 Temperature 98.9 F Pulse Rate 98 H 101 H Pulse Rate [ 101 H From Monitor] Respiratory 23 Rate Blood Pressure 85/48 91/47 O2 Sat by Pulse 98 95 Oximetry 08/31/19 08/31/19 08/31/19 05:00 06:00 07:00 Temperature Pulse Rate 92 H 103 H 114 H Pulse Rate [ From Monitor] Respiratory 21 15 23 Rate Blood Pressure 91/47 103/61 117/65 O2 Sat by Pulse 98 Oximetry 08/31/19 08/31/19 08/31/19 08:00 09:00 09:02 Temperature 99.4 F Pulse Rate 108 H 111 H 110 H Pulse Rate [ 107 H From Monitor] Respiratory 13 16 Rate Blood Pressure 113/69 102/59 102/59 O2 Sat by Pulse 97 98 Oximetry 08/31/19 08/31/19 08/31/19 10:00 11:00 11:25 Temperature Pulse Rate 90 78 79 Pulse Rate [ From Monitor] Respiratory 12 21 Rate Blood Pressure 91/53 119/61 119/61 O2 Sat by Pulse 99 99 100 Oximetry Constitutional: appears uncomfortable, other (eelderly and chronically ill looking AAM, normocep[krystina;ic with mildly increased respiratory effort at rest) Eyes: non-icteric ENT: oropharynx moist, other (ETT 24 cm RUTH) Neck: supple, no lymphadenopathy, no JVD Effort: mildly labored Ascultation: Bilateral: diminished breath sounds, rhonchi Percussion: Bilateral: not dull Cardiovascular: regular rate and rhythm Gastrointestinal: normoactive bowel sounds, soft, non-tender, non-distended, other (+ PEG tube with mild TF leakage) Integumentary: decubitus ulcer (sacral) Extremities: no cyanosis, no edema, pink and warm, pulses normal Neurologic: pupils equal and round, unable to assess Psychiatric: other (Unable to assess re: AMS) CBC and BMP: 08/30/19 05:10 09/01/19 14:50 ABG, PT/INR, D-dimer: ABG ABG pH 7.405 pH Units (7.350-7.450) 08/17/19 20:20 ABG pCO2 45.3 mm Hg 08/17/19 20:20 ABG pO2 84.2 mm Hg (80.0-90.0) 08/17/19 20:20 ABG O2 Saturation 96.9 % (95.0-99.0) 08/17/19 20:20 PT/INR, D-dimer PT 16.0 Sec. (12.2-14.9) H 07/03/19 22:20 INR 1.26 (0.87-1.13) H 07/03/19 22:20 D-Dimer 1808.06 ng/mlDDU (0-234) H 08/07/19 10:24 Abnormal lab findings: Abnormal Labs 07/03/19 07/03/19 07/03/19 19:57 21:10 21:13 WBC RBC Hgb Hct MCV MCH MCHC RDW Plt Count Lymph % (Auto) [place] % (Auto) Lymph # [place] # Baso # Seg Neutrophils % Seg Neuts % (Manual) Lymphocytes % (Manual) Monocytes % (Manual) Basophils % (Manual) Nucleated RBC % Seg Neutrophils # Seg Neutrophils # Man Lymphocytes # (Manual) Monocytes # (Manual) Eosinophils # (Manual) Basophils # (Manual) PT INR D-Dimer ABG pH 7.238 L ABG pO2 210.8 H ABG HCO3 15.4 L ABG O2 Saturation 99.2 H ABG Base Excess -11.1 L ABG Hemoglobin 8.0 L Oxyhemoglobin Sodium 124 L Potassium Chloride 92.9 L Carbon Dioxide 10 L BUN 23 H Creatinine 0.5 L Glucose 118 H POC Glucose Lactic Acid Calcium 7.0 L Magnesium Iron TIBC Ferritin AST 70 H ALT 88 H Lactate Dehydrogenase Troponin T 0.032 H C-Reactive Protein Total Protein 5.0 L Albumin 1.8 L Prealbumin Cholesterol 47 L LDL Cholesterol Direct 25 L HDL Cholesterol 20 L Urine WBC (Auto) 12.0 H Vancomycin Trough Coronavirus (PCR) Crossmatch 07/03/19 07/03/19 07/03/19 22:20 22:20 22:20 WBC 30.5 H RBC 2.96 L Hgb 7.7 L Hct 23.9 L MCV 81 L MCH 26 L MCHC RDW 18.6 H Plt Count 459 H Lymph % (Auto) [place] % (Auto) Lymph # [place] # Baso # Seg Neutrophils % Seg Neuts % (Manual) 93.0 H Lymphocytes % (Manual) 0.5 L Monocytes % (Manual) Basophils % (Manual) Nucleated RBC % Seg Neutrophils # Seg Neutrophils # Man 28.4 H Lymphocytes # (Manual) 0.2 L Monocytes # (Manual) Eosinophils # (Manual) Basophils # (Manual) PT 16.0 H INR 1.26 H D-Dimer ABG pH ABG pO2 ABG HCO3 ABG O2 Saturation ABG Base Excess ABG Hemoglobin Oxyhemoglobin Sodium Potassium Chloride Carbon Dioxide BUN Creatinine Glucose POC Glucose Lactic Acid 6.90 H* Calcium Magnesium Iron TIBC Ferritin AST ALT Lactate Dehydrogenase Troponin T C-Reactive Protein Total Protein Albumin Prealbumin Cholesterol LDL Cholesterol Direct HDL Cholesterol Urine WBC (Auto) Vancomycin Trough Coronavirus (PCR) Crossmatch 07/03/19 07/04/19 07/04/19 23:58 05:15 07:05 WBC 17.1 H RBC 3.22 L Hgb 8.3 L Hct 25.4 L MCV 79 L MCH 26 L MCHC RDW 18.6 H Plt Count Lymph % (Auto) [place] % (Auto) Lymph # [place] # Baso # Seg Neutrophils % Seg Neuts % (Manual) 74.0 H Lymphocytes % (Manual) 0 L Monocytes % (Manual) Basophils % (Manual) Nucleated RBC % Seg Neutrophils # Seg Neutrophils # Man 12.7 H Lymphocytes # (Manual) 0.0 L Monocytes # (Manual) Eosinophils # (Manual) Basophils # (Manual) PT INR D-Dimer ABG pH 7.310 L ABG pO2 73.2 L ABG HCO3 17.8 L ABG O2 Saturation 93.8 L ABG Base Excess -7.7 L ABG Hemoglobin 9.6 L Oxyhemoglobin 92.3 L Sodium Potassium Chloride Carbon Dioxide BUN Creatinine Glucose POC Glucose Lactic Acid 7.10 H* Calcium Magnesium Iron TIBC Ferritin AST ALT Lactate Dehydrogenase Troponin T C-Reactive Protein Total Protein Albumin Prealbumin Cholesterol LDL Cholesterol Direct HDL Cholesterol Urine WBC (Auto) Vancomycin Trough Coronavirus (PCR) Crossmatch 07/04/19 07/04/19 07/04/19 07:05 07:05 07:05 WBC RBC Hgb Hct MCV MCH MCHC RDW Plt Count Lymph % (Auto) [place] % (Auto) Lymph # [place] # Baso # Seg Neutrophils % Seg Neuts % (Manual) Lymphocytes % (Manual) Monocytes % (Manual) Basophils % (Manual) Nucleated RBC % Seg Neutrophils # Seg Neutrophils # Man Lymphocytes # (Manual) Monocytes # (Manual) Eosinophils # (Manual) Basophils # (Manual) PT INR D-Dimer ABG pH ABG pO2 ABG HCO3 ABG O2 Saturation ABG Base Excess ABG Hemoglobin Oxyhemoglobin Sodium 120 L Potassium 5.1 H Chloride 90.0 L Carbon Dioxide 14 L BUN 26 H Creatinine 0.5 L Glucose POC Glucose Lactic Acid 3.30 H* Calcium 8.0 L Magnesium Iron 9 L TIBC 97 L Ferritin AST 73 H ALT 91 H Lactate Dehydrogenase Troponin T C-Reactive Protein Total Protein 5.5 L Albumin 2.0 L Prealbumin Cholesterol LDL Cholesterol Direct HDL Cholesterol Urine WBC (Auto) Vancomycin Trough Coronavirus (PCR) Crossmatch 07/04/19 07/04/19 07/04/19 09:39 09:39 09:39 WBC RBC Hgb Hct MCV MCH MCHC RDW Plt Count Lymph % (Auto) [place] % (Auto) Lymph # [place] # Baso # Seg Neutrophils % Seg Neuts % (Manual) Lymphocytes % (Manual) Monocytes % (Manual) Basophils % (Manual) Nucleated RBC % Seg Neutrophils # Seg Neutrophils # Man Lymphocytes # (Manual) Monocytes # (Manual) Eosinophils # (Manual) Basophils # (Manual) PT INR D-Dimer 1419.14 H ABG pH ABG pO2 ABG HCO3 ABG O2 Saturation ABG Base Excess ABG Hemoglobin Oxyhemoglobin Sodium Potassium Chloride Carbon Dioxide BUN Creatinine Glucose POC Glucose Lactic Acid Calcium Magnesium Iron TIBC Ferritin 1719.0 H AST ALT Lactate Dehydrogenase 234 H Troponin T C-Reactive Protein 15.50 H Total Protein Albumin Prealbumin Cholesterol LDL Cholesterol Direct HDL Cholesterol Urine WBC (Auto) Vancomycin Trough Coronavirus (PCR) Crossmatch 07/04/19 07/04/19 07/04/19 10:09 18:08 18:28 WBC RBC Hgb Hct MCV MCH MCHC RDW Plt Count Lymph % (Auto) [place] % (Auto) Lymph # [place] # Baso # Seg Neutrophils % Seg Neuts % (Manual) Lymphocytes % (Manual) Monocytes % (Manual) Basophils % (Manual) Nucleated RBC % Seg Neutrophils # Seg Neutrophils # Man Lymphocytes # (Manual) Monocytes # (Manual) Eosinophils # (Manual) Basophils # (Manual) PT INR D-Dimer ABG pH ABG pO2 ABG HCO3 ABG O2 Saturation ABG Base Excess ABG Hemoglobin Oxyhemoglobin Sodium 117 L* Potassium 5.6 H Chloride 90.3 L Carbon Dioxide 16 L BUN 28 H Creatinine 0.5 L Glucose 58 L POC Glucose 65 L Lactic Acid Calcium 8.2 L Magnesium Iron TIBC Ferritin AST ALT Lactate Dehydrogenase Troponin T C-Reactive Protein Total Protein Albumin Prealbumin Cholesterol LDL Cholesterol Direct HDL Cholesterol Urine WBC (Auto) Vancomycin Trough Coronavirus (PCR) Positive A Crossmatch 07/04/19 07/04/19 07/04/19 23:45 Unknown Unknown WBC RBC Hgb Hct MCV MCH MCHC RDW Plt Count Lymph % (Auto) [place] % (Auto) Lymph # [place] # Baso # Seg Neutrophils % Seg Neuts % (Manual) Lymphocytes % (Manual) Monocytes % (Manual) Basophils % (Manual) Nucleated RBC % Seg Neutrophils # Seg Neutrophils # Man Lymphocytes # (Manual) Monocytes # (Manual) Eosinophils # (Manual) Basophils # (Manual) PT INR D-Dimer 759.77 H ABG pH ABG pO2 ABG HCO3 ABG O2 Saturation ABG Base Excess ABG Hemoglobin Oxyhemoglobin Sodium 122 L Potassium Chloride 93.0 L Carbon Dioxide 19 L BUN 27 H Creatinine 0.5 L Glucose POC Glucose Lactic Acid Calcium 8.3 L Magnesium Iron TIBC Ferritin 1301.0 H AST ALT Lactate Dehydrogenase Troponin T C-Reactive Protein Total Protein Albumin Prealbumin Cholesterol LDL Cholesterol Direct HDL Cholesterol Urine WBC (Auto) Vancomycin Trough Coronavirus (PCR) Crossmatch 07/04/19 07/05/19 07/05/19 Unknown 03:20 04:00 WBC RBC Hgb Hct MCV MCH MCHC RDW Plt Count Lymph % (Auto) [place] % (Auto) Lymph # [place] # Baso # Seg Neutrophils % Seg Neuts % (Manual) Lymphocytes % (Manual) Monocytes % (Manual) Basophils % (Manual) Nucleated RBC % Seg Neutrophils # Seg Neutrophils # Man Lymphocytes # (Manual) Monocytes # (Manual) Eosinophils # (Manual) Basophils # (Manual) PT INR D-Dimer ABG pH ABG pO2 60.6 L ABG HCO3 ABG O2 Saturation 93.5 L ABG Base Excess -2.4 L ABG Hemoglobin 6.9 L Oxyhemoglobin 92.0 L Sodium 125 L Potassium Chloride 92.6 L Carbon Dioxide 19 L BUN 24 H Creatinine 0.6 L Glucose POC Glucose Lactic Acid Calcium 8.2 L Magnesium 1.40 L Iron TIBC Ferritin AST ALT Lactate Dehydrogenase 242 H Troponin T C-Reactive Protein 16.70 H Total Protein Albumin Prealbumin Cholesterol LDL Cholesterol Direct HDL Cholesterol Urine WBC (Auto) Vancomycin Trough Coronavirus (PCR) Crossmatch 07/05/19 07/05/19 07/05/19 10:11 16:15 17:54 WBC 46.4 H* RBC 2.77 L Hgb 7.2 L Hct 21.9 L MCV 79 L MCH 26 L MCHC RDW 19.0 H Plt Count Lymph % (Auto) [place] % (Auto) Lymph # [place] # Baso # Seg Neutrophils % Seg Neuts % (Manual) 82.0 H Lymphocytes % (Manual) 1.0 L Monocytes % (Manual) Basophils % (Manual) Nucleated RBC % Seg Neutrophils # Seg Neutrophils # Man 38.0 H Lymphocytes # (Manual) 0.5 L Monocytes # (Manual) Eosinophils # (Manual) Basophils # (Manual) PT INR D-Dimer ABG pH ABG pO2 ABG HCO3 ABG O2 Saturation ABG Base Excess ABG Hemoglobin Oxyhemoglobin Sodium Potassium Chloride Carbon Dioxide BUN Creatinine Glucose POC Glucose 69 L Lactic Acid Calcium Magnesium Iron TIBC Ferritin AST ALT Lactate Dehydrogenase Troponin T C-Reactive Protein Total Protein Albumin Prealbumin Cholesterol LDL Cholesterol Direct HDL Cholesterol Urine WBC (Auto) Vancomycin Trough 23.2 H Coronavirus (PCR) Crossmatch 07/05/19 07/06/19 07/06/19 19:58 00:27 00:27 WBC RBC Hgb Hct MCV MCH MCHC RDW Plt Count Lymph % (Auto) [place] % (Auto) Lymph # [place] # Baso # Seg Neutrophils % Seg Neuts % (Manual) Lymphocytes % (Manual) Monocytes % (Manual) Basophils % (Manual) Nucleated RBC % Seg Neutrophils # Seg Neutrophils # Man Lymphocytes # (Manual) Monocytes # (Manual) Eosinophils # (Manual) Basophils # (Manual) PT INR D-Dimer 1333.22 H ABG pH ABG pO2 ABG HCO3 ABG O2 Saturation ABG Base Excess ABG Hemoglobin Oxyhemoglobin Sodium 127 L Potassium Chloride Carbon Dioxide BUN Creatinine Glucose POC Glucose Lactic Acid Calcium Magnesium Iron TIBC Ferritin 977.1 H AST ALT Lactate Dehydrogenase Troponin T C-Reactive Protein Total Protein Albumin Prealbumin Cholesterol LDL Cholesterol Direct HDL Cholesterol Urine WBC (Auto) Vancomycin Trough Coronavirus (PCR) Crossmatch 07/06/19 07/06/19 07/06/19 00:27 02:00 02:56 WBC RBC Hgb Hct MCV MCH MCHC RDW Plt Count Lymph % (Auto) [place] % (Auto) Lymph # [place] # Baso # Seg Neutrophils % Seg Neuts % (Manual) Lymphocytes % (Manual) Monocytes % (Manual) Basophils % (Manual) Nucleated RBC % Seg Neutrophils # Seg Neutrophils # Man Lymphocytes # (Manual) Monocytes # (Manual) Eosinophils # (Manual) Basophils # (Manual) PT INR D-Dimer ABG pH ABG pO2 70.3 L ABG HCO3 ABG O2 Saturation 94.8 L ABG Base Excess ABG Hemoglobin 8.0 L Oxyhemoglobin 93.2 L Sodium Potassium Chloride Carbon Dioxide BUN Creatinine Glucose POC Glucose 117 H Lactic Acid Calcium Magnesium Iron TIBC Ferritin AST ALT Lactate Dehydrogenase 236 H Troponin T C-Reactive Protein 22.90 H Total Protein Albumin Prealbumin Cholesterol LDL Cholesterol Direct HDL Cholesterol Urine WBC (Auto) Vancomycin Trough Coronavirus (PCR) Crossmatch 07/06/19 07/06/19 07/06/19 03:49 03:49 07:40 WBC 38.8 H RBC 2.51 L Hgb 6.7 L Hct 19.9 L* MCV 79 L MCH 27 L MCHC RDW 19.2 H Plt Count Lymph % (Auto) [place] % (Auto) Lymph # [place] # Baso # Seg Neutrophils % Seg Neuts % (Manual) 90.5 H Lymphocytes % (Manual) 1.0 L Monocytes % (Manual) Basophils % (Manual) Nucleated RBC % Seg Neutrophils # Seg Neutrophils # Man 35.1 H Lymphocytes # (Manual) 0.4 L Monocytes # (Manual) Eosinophils # (Manual) Basophils # (Manual) PT INR D-Dimer ABG pH ABG pO2 ABG HCO3 ABG O2 Saturation ABG Base Excess ABG Hemoglobin Oxyhemoglobin Sodium 131 L Potassium Chloride 96.9 L Carbon Dioxide 18 L BUN 23 H Creatinine 0.5 L Glucose POC Glucose Lactic Acid Calcium 8.0 L Magnesium Iron TIBC Ferritin AST ALT Lactate Dehydrogenase Troponin T C-Reactive Protein Total Protein Albumin Prealbumin Cholesterol LDL Cholesterol Direct HDL Cholesterol Urine WBC (Auto) Vancomycin Trough Coronavirus (PCR) Crossmatch See Detail 07/06/19 07/06/19 07/06/19 12:38 14:39 20:00 WBC RBC Hgb Hct MCV MCH MCHC RDW Plt Count Lymph % (Auto) [place] % (Auto) Lymph # [place] # Baso # Seg Neutrophils % Seg Neuts % (Manual) Lymphocytes % (Manual) Monocytes % (Manual) Basophils % (Manual) Nucleated RBC % Seg Neutrophils # Seg Neutrophils # Man Lymphocytes # (Manual) Monocytes # (Manual) Eosinophils # (Manual) Basophils # (Manual) PT INR D-Dimer ABG pH ABG pO2 ABG HCO3 ABG O2 Saturation ABG Base Excess ABG Hemoglobin Oxyhemoglobin Sodium Potassium Chloride Carbon Dioxide BUN Creatinine Glucose POC Glucose 112 H 111 H 140 H Lactic Acid Calcium Magnesium Iron TIBC Ferritin AST ALT Lactate Dehydrogenase Troponin T C-Reactive Protein Total Protein Albumin Prealbumin Cholesterol LDL Cholesterol Direct HDL Cholesterol Urine WBC (Auto) Vancomycin Trough Coronavirus (PCR) Crossmatch 07/06/19 07/06/19 07/07/19 22:43 22:56 02:20 WBC RBC Hgb 7.9 L Hct 23.1 L MCV MCH MCHC RDW Plt Count Lymph % (Auto) [place] % (Auto) Lymph # [place] # Baso # Seg Neutrophils % Seg Neuts % (Manual) Lymphocytes % (Manual) Monocytes % (Manual) Basophils % (Manual) Nucleated RBC % Seg Neutrophils # Seg Neutrophils # Man Lymphocytes # (Manual) Monocytes # (Manual) Eosinophils # (Manual) Basophils # (Manual) PT INR D-Dimer ABG pH ABG pO2 ABG HCO3 ABG O2 Saturation ABG Base Excess ABG Hemoglobin Oxyhemoglobin Sodium Potassium Chloride Carbon Dioxide BUN Creatinine Glucose POC Glucose 122 H 149 H Lactic Acid Calcium Magnesium Iron TIBC Ferritin AST ALT Lactate Dehydrogenase Troponin T C-Reactive Protein Total Protein Albumin Prealbumin Cholesterol LDL Cholesterol Direct HDL Cholesterol Urine WBC (Auto) Vancomycin Trough Coronavirus (PCR) Crossmatch 07/07/19 07/07/19 07/07/19 04:35 05:27 05:34 WBC 23.1 H RBC 3.00 L Hgb 8.1 L Hct 24.2 L MCV 81 L MCH 27 L MCHC RDW 20.6 H Plt Count Lymph % (Auto) [place] % (Auto) Lymph # [place] # Baso # Seg Neutrophils % Seg Neuts % (Manual) 90.0 H Lymphocytes % (Manual) 2.0 L Monocytes % (Manual) Basophils % (Manual) Nucleated RBC % Seg Neutrophils # Seg Neutrophils # Man 20.8 H Lymphocytes # (Manual) 0.5 L Monocytes # (Manual) Eosinophils # (Manual) Basophils # (Manual) PT INR D-Dimer ABG pH ABG pO2 65.8 L ABG HCO3 ABG O2 Saturation 92.2 L ABG Base Excess ABG Hemoglobin 8.3 L Oxyhemoglobin 90.6 L Sodium Potassium Chloride Carbon Dioxide BUN Creatinine Glucose POC Glucose 132 H Lactic Acid Calcium Magnesium Iron TIBC Ferritin AST ALT Lactate Dehydrogenase Troponin T C-Reactive Protein Total Protein Albumin Prealbumin Cholesterol LDL Cholesterol Direct HDL Cholesterol Urine WBC (Auto) Vancomycin Trough Coronavirus (PCR) Crossmatch 07/07/19 07/07/19 07/07/19 05:34 11:50 15:58 WBC RBC Hgb 8.1 L Hct 24.2 L MCV MCH MCHC RDW Plt Count Lymph % (Auto) [place] % (Auto) Lymph # [place] # Baso # Seg Neutrophils % Seg Neuts % (Manual) Lymphocytes % (Manual) Monocytes % (Manual) Basophils % (Manual) Nucleated RBC % Seg Neutrophils # Seg Neutrophils # Man Lymphocytes # (Manual) Monocytes # (Manual) Eosinophils # (Manual) Basophils # (Manual) PT INR D-Dimer ABG pH ABG pO2 ABG HCO3 ABG O2 Saturation ABG Base Excess ABG Hemoglobin Oxyhemoglobin Sodium 135 L Potassium 3.3 L Chloride Carbon Dioxide 20 L BUN 27 H Creatinine 0.6 L Glucose 121 H POC Glucose 123 H Lactic Acid Calcium 8.0 L Magnesium Iron TIBC Ferritin AST ALT Lactate Dehydrogenase Troponin T C-Reactive Protein Total Protein Albumin Prealbumin Cholesterol LDL Cholesterol Direct HDL Cholesterol Urine WBC (Auto) Vancomycin Trough Coronavirus (PCR) Crossmatch 07/07/19 07/07/19 07/07/19 17:42 22:00 23:53 WBC RBC Hgb 8.0 L Hct 23.4 L MCV MCH MCHC RDW Plt Count Lymph % (Auto) [place] % (Auto) Lymph # [place] # Baso # Seg Neutrophils % Seg Neuts % (Manual) Lymphocytes % (Manual) Monocytes % (Manual) Basophils % (Manual) Nucleated RBC % Seg Neutrophils # Seg Neutrophils # Man Lymphocytes # (Manual) Monocytes # (Manual) Eosinophils # (Manual) Basophils # (Manual) PT INR D-Dimer ABG pH ABG pO2 ABG HCO3 ABG O2 Saturation ABG Base Excess ABG Hemoglobin Oxyhemoglobin Sodium Potassium Chloride Carbon Dioxide BUN Creatinine Glucose POC Glucose 107 H 117 H Lactic Acid Calcium Magnesium Iron TIBC Ferritin AST ALT Lactate Dehydrogenase Troponin T C-Reactive Protein Total Protein Albumin Prealbumin Cholesterol LDL Cholesterol Direct HDL Cholesterol Urine WBC (Auto) Vancomycin Trough Coronavirus (PCR) Crossmatch 07/08/19 07/08/19 07/08/19 00:45 00:45 00:45 WBC RBC Hgb Hct MCV MCH MCHC RDW Plt Count Lymph % (Auto) [place] % (Auto) Lymph # [place] # Baso # Seg Neutrophils % Seg Neuts % (Manual) Lymphocytes % (Manual) Monocytes % (Manual) Basophils % (Manual) Nucleated RBC % Seg Neutrophils # Seg Neutrophils # Man Lymphocytes # (Manual) Monocytes # (Manual) Eosinophils # (Manual) Basophils # (Manual) PT INR D-Dimer 1142.18 H ABG pH ABG pO2 ABG HCO3 ABG O2 Saturation ABG Base Excess ABG Hemoglobin Oxyhemoglobin Sodium Potassium Chloride Carbon Dioxide BUN Creatinine Glucose POC Glucose Lactic Acid Calcium Magnesium Iron TIBC Ferritin 839.0 H AST ALT Lactate Dehydrogenase 253 H Troponin T C-Reactive Protein 18.90 H Total Protein Albumin Prealbumin Cholesterol LDL Cholesterol Direct HDL Cholesterol Urine WBC (Auto) Vancomycin Trough Coronavirus (PCR) Crossmatch 07/08/19 07/08/19 07/08/19 04:30 05:11 12:02 WBC RBC Hgb Hct MCV MCH MCHC RDW Plt Count Lymph % (Auto) [place] % (Auto) Lymph # [place] # Baso # Seg Neutrophils % Seg Neuts % (Manual) Lymphocytes % (Manual) Monocytes % (Manual) Basophils % (Manual) Nucleated RBC % Seg Neutrophils # Seg Neutrophils # Man Lymphocytes # (Manual) Monocytes # (Manual) Eosinophils # (Manual) Basophils # (Manual) PT INR D-Dimer ABG pH ABG pO2 66.0 L ABG HCO3 ABG O2 Saturation 92.3 L ABG Base Excess ABG Hemoglobin 7.7 L Oxyhemoglobin 90.7 L Sodium Potassium Chloride Carbon Dioxide BUN Creatinine Glucose POC Glucose 108 H 153 H Lactic Acid Calcium Magnesium Iron TIBC Ferritin AST ALT Lactate Dehydrogenase Troponin T C-Reactive Protein Total Protein Albumin Prealbumin Cholesterol LDL Cholesterol Direct HDL Cholesterol Urine WBC (Auto) Vancomycin Trough Coronavirus (PCR) Crossmatch 07/08/19 07/08/19 07/08/19 16:15 18:22 23:35 WBC RBC Hgb Hct MCV MCH MCHC RDW Plt Count Lymph % (Auto) [place] % (Auto) Lymph # [place] # Baso # Seg Neutrophils % Seg Neuts % (Manual) Lymphocytes % (Manual) Monocytes % (Manual) Basophils % (Manual) Nucleated RBC % Seg Neutrophils # Seg Neutrophils # Man Lymphocytes # (Manual) Monocytes # (Manual) Eosinophils # (Manual) Basophils # (Manual) PT INR D-Dimer ABG pH ABG pO2 ABG HCO3 ABG O2 Saturation ABG Base Excess ABG Hemoglobin Oxyhemoglobin Sodium 134 L Potassium 3.3 L Chloride Carbon Dioxide 21 L BUN 27 H Creatinine 0.6 L Glucose 146 H POC Glucose 134 H 133 H Lactic Acid Calcium Magnesium Iron TIBC Ferritin AST ALT Lactate Dehydrogenase Troponin T C-Reactive Protein Total Protein Albumin Prealbumin Cholesterol LDL Cholesterol Direct HDL Cholesterol Urine WBC (Auto) Vancomycin Trough Coronavirus (PCR) Crossmatch 07/09/19 07/09/19 07/09/19 04:30 04:30 05:00 WBC 18.9 H RBC 2.77 L Hgb 7.4 L Hct 22.8 L MCV 82 L MCH 27 L MCHC RDW 20.9 H Plt Count 130 L Lymph % (Auto) [place] % (Auto) Lymph # [place] # Baso # Seg Neutrophils % Seg Neuts % (Manual) 84.0 H Lymphocytes % (Manual) 0 L Monocytes % (Manual) Basophils % (Manual) Nucleated RBC % Seg Neutrophils # Seg Neutrophils # Man 15.9 H Lymphocytes # (Manual) 0.0 L Monocytes # (Manual) Eosinophils # (Manual) Basophils # (Manual) PT INR D-Dimer ABG pH ABG pO2 ABG HCO3 ABG O2 Saturation ABG Base Excess ABG Hemoglobin Oxyhemoglobin Sodium Potassium 3.1 L Chloride Carbon Dioxide BUN 26 H Creatinine 0.5 L Glucose 125 H POC Glucose 155 H Lactic Acid Calcium Magnesium Iron TIBC Ferritin AST ALT Lactate Dehydrogenase Troponin T C-Reactive Protein Total Protein Albumin Prealbumin Cholesterol LDL Cholesterol Direct HDL Cholesterol Urine WBC (Auto) Vancomycin Trough Coronavirus (PCR) Crossmatch 07/09/19 07/09/19 07/09/19 05:55 12:22 17:50 WBC RBC Hgb Hct MCV MCH MCHC RDW Plt Count Lymph % (Auto) [place] % (Auto) Lymph # [place] # Baso # Seg Neutrophils % Seg Neuts % (Manual) Lymphocytes % (Manual) Monocytes % (Manual) Basophils % (Manual) Nucleated RBC % Seg Neutrophils # Seg Neutrophils # Man Lymphocytes # (Manual) Monocytes # (Manual) Eosinophils # (Manual) Basophils # (Manual) PT INR D-Dimer ABG pH ABG pO2 62.8 L ABG HCO3 ABG O2 Saturation ABG Base Excess ABG Hemoglobin 6.1 L Oxyhemoglobin 93.9 L Sodium Potassium Chloride Carbon Dioxide BUN Creatinine Glucose POC Glucose 115 H 133 H Lactic Acid Calcium Magnesium Iron TIBC Ferritin AST ALT Lactate Dehydrogenase Troponin T C-Reactive Protein Total Protein Albumin Prealbumin Cholesterol LDL Cholesterol Direct HDL Cholesterol Urine WBC (Auto) Vancomycin Trough Coronavirus (PCR) Crossmatch 07/10/19 07/10/19 07/10/19 00:38 04:00 04:00 WBC RBC Hgb Hct MCV MCH MCHC RDW Plt Count Lymph % (Auto) [place] % (Auto) Lymph # [place] # Baso # Seg Neutrophils % Seg Neuts % (Manual) Lymphocytes % (Manual) Monocytes % (Manual) Basophils % (Manual) Nucleated RBC % Seg Neutrophils # Seg Neutrophils # Man Lymphocytes # (Manual) Monocytes # (Manual) Eosinophils # (Manual) Basophils # (Manual) PT INR D-Dimer ABG pH ABG pO2 ABG HCO3 ABG O2 Saturation ABG Base Excess ABG Hemoglobin Oxyhemoglobin Sodium Potassium Chloride 107.9 H Carbon Dioxide BUN 26 H Creatinine 0.4 L Glucose 137 H POC Glucose 122 H Lactic Acid Calcium Magnesium 1.50 L Iron TIBC Ferritin AST ALT Lactate Dehydrogenase 277 H Troponin T C-Reactive Protein 15.10 H Total Protein Albumin Prealbumin Cholesterol LDL Cholesterol Direct HDL Cholesterol Urine WBC (Auto) Vancomycin Trough Coronavirus (PCR) Crossmatch 07/10/19 07/10/19 07/10/19 04:07 05:21 17:25 WBC RBC Hgb Hct MCV MCH MCHC RDW Plt Count Lymph % (Auto) [place] % (Auto) Lymph # [place] # Baso # Seg Neutrophils % Seg Neuts % (Manual) Lymphocytes % (Manual) Monocytes % (Manual) Basophils % (Manual) Nucleated RBC % Seg Neutrophils # Seg Neutrophils # Man Lymphocytes # (Manual) Monocytes # (Manual) Eosinophils # (Manual) Basophils # (Manual) PT INR D-Dimer ABG pH ABG pO2 65.6 L ABG HCO3 26.3 H ABG O2 Saturation ABG Base Excess ABG Hemoglobin 6.7 L Oxyhemoglobin Sodium Potassium Chloride Carbon Dioxide BUN Creatinine Glucose POC Glucose 144 H 113 H Lactic Acid Calcium Magnesium Iron TIBC Ferritin AST ALT Lactate Dehydrogenase Troponin T C-Reactive Protein Total Protein Albumin Prealbumin Cholesterol LDL Cholesterol Direct HDL Cholesterol Urine WBC (Auto) Vancomycin Trough Coronavirus (PCR) Crossmatch 07/11/19 07/11/19 07/11/19 00:07 05:14 05:25 WBC RBC Hgb Hct MCV MCH MCHC RDW Plt Count Lymph % (Auto) [place] % (Auto) Lymph # [place] # Baso # Seg Neutrophils % Seg Neuts % (Manual) Lymphocytes % (Manual) Monocytes % (Manual) Basophils % (Manual) Nucleated RBC % Seg Neutrophils # Seg Neutrophils # Man Lymphocytes # (Manual) Monocytes # (Manual) Eosinophils # (Manual) Basophils # (Manual) PT INR D-Dimer ABG pH ABG pO2 ABG HCO3 ABG O2 Saturation ABG Base Excess ABG Hemoglobin 5.8 L Oxyhemoglobin Sodium Potassium Chloride 108.0 H Carbon Dioxide BUN 26 H Creatinine 0.4 L Glucose 110 H POC Glucose 121 H Lactic Acid Calcium Magnesium Iron TIBC Ferritin AST ALT Lactate Dehydrogenase Troponin T C-Reactive Protein Total Protein Albumin Prealbumin Cholesterol LDL Cholesterol Direct HDL Cholesterol Urine WBC (Auto) Vancomycin Trough Coronavirus (PCR) Crossmatch 07/11/19 07/11/19 07/11/19 12:27 18:00 23:42 WBC RBC Hgb Hct MCV MCH MCHC RDW Plt Count Lymph % (Auto) [place] % (Auto) Lymph # [place] # Baso # Seg Neutrophils % Seg Neuts % (Manual) Lymphocytes % (Manual) Monocytes % (Manual) Basophils % (Manual) Nucleated RBC % Seg Neutrophils # Seg Neutrophils # Man Lymphocytes # (Manual) Monocytes # (Manual) Eosinophils # (Manual) Basophils # (Manual) PT INR D-Dimer ABG pH ABG pO2 ABG HCO3 ABG O2 Saturation ABG Base Excess ABG Hemoglobin Oxyhemoglobin Sodium Potassium Chloride Carbon Dioxide BUN Creatinine Glucose POC Glucose 158 H 141 H 142 H Lactic Acid Calcium Magnesium Iron TIBC Ferritin AST ALT Lactate Dehydrogenase Troponin T C-Reactive Protein Total Protein Albumin Prealbumin Cholesterol LDL Cholesterol Direct HDL Cholesterol Urine WBC (Auto) Vancomycin Trough Coronavirus (PCR) Crossmatch 07/12/19 07/12/19 07/12/19 04:46 04:46 05:23 WBC 23.6 H RBC 2.51 L Hgb 6.7 L Hct 20.8 L MCV 83 L MCH 27 L MCHC RDW 20.3 H Plt Count Lymph % (Auto) [place] % (Auto) Lymph # [place] # Baso # Seg Neutrophils % Seg Neuts % (Manual) 94.0 H Lymphocytes % (Manual) 4.0 L Monocytes % (Manual) Basophils % (Manual) Nucleated RBC % Seg Neutrophils # Seg Neutrophils # Man 22.2 H Lymphocytes # (Manual) 0.9 L Monocytes # (Manual) Eosinophils # (Manual) Basophils # (Manual) PT INR D-Dimer ABG pH ABG pO2 ABG HCO3 ABG O2 Saturation ABG Base Excess ABG Hemoglobin Oxyhemoglobin Sodium Potassium Chloride 107.1 H Carbon Dioxide BUN 25 H Creatinine 0.4 L Glucose 122 H POC Glucose 118 H Lactic Acid Calcium Magnesium Iron TIBC Ferritin AST ALT Lactate Dehydrogenase Troponin T C-Reactive Protein Total Protein Albumin Prealbumin Cholesterol LDL Cholesterol Direct HDL Cholesterol Urine WBC (Auto) Vancomycin Trough Coronavirus (PCR) Crossmatch 07/12/19 07/12/19 07/12/19 08:49 11:36 18:15 WBC RBC Hgb Hct MCV MCH MCHC RDW Plt Count Lymph % (Auto) [place] % (Auto) Lymph # [place] # Baso # Seg Neutrophils % Seg Neuts % (Manual) Lymphocytes % (Manual) Monocytes % (Manual) Basophils % (Manual) Nucleated RBC % Seg Neutrophils # Seg Neutrophils # Man Lymphocytes # (Manual) Monocytes # (Manual) Eosinophils # (Manual) Basophils # (Manual) PT INR D-Dimer ABG pH ABG pO2 ABG HCO3 ABG O2 Saturation ABG Base Excess ABG Hemoglobin Oxyhemoglobin Sodium Potassium Chloride Carbon Dioxide BUN Creatinine Glucose POC Glucose 124 H 110 H Lactic Acid Calcium Magnesium Iron TIBC Ferritin AST ALT Lactate Dehydrogenase Troponin T C-Reactive Protein Total Protein Albumin Prealbumin Cholesterol LDL Cholesterol Direct HDL Cholesterol Urine WBC (Auto) Vancomycin Trough Coronavirus (PCR) Crossmatch See Detail 07/12/19 07/13/19 07/13/19 23:16 05:26 06:50 WBC 23.9 H RBC 2.58 L Hgb 6.9 L Hct 21.5 L MCV 83 L MCH 27 L MCHC RDW 19.0 H Plt Count Lymph % (Auto) [place] % (Auto) Lymph # [place] # Baso # Seg Neutrophils % Seg Neuts % (Manual) 96.0 H Lymphocytes % (Manual) 3.0 L Monocytes % (Manual) Basophils % (Manual) Nucleated RBC % Seg Neutrophils # Seg Neutrophils # Man 22.9 H Lymphocytes # (Manual) 0.7 L Monocytes # (Manual) Eosinophils # (Manual) Basophils # (Manual) PT INR D-Dimer ABG pH ABG pO2 ABG HCO3 ABG O2 Saturation ABG Base Excess ABG Hemoglobin Oxyhemoglobin Sodium Potassium Chloride Carbon Dioxide BUN Creatinine Glucose POC Glucose 108 H 126 H Lactic Acid Calcium Magnesium Iron TIBC Ferritin AST ALT Lactate Dehydrogenase Troponin T C-Reactive Protein Total Protein Albumin Prealbumin Cholesterol LDL Cholesterol Direct HDL Cholesterol Urine WBC (Auto) Vancomycin Trough Coronavirus (PCR) Crossmatch 07/13/19 07/13/19 07/13/19 06:50 12:38 18:05 WBC RBC Hgb Hct MCV MCH MCHC RDW Plt Count Lymph % (Auto) [place] % (Auto) Lymph # [place] # Baso # Seg Neutrophils % Seg Neuts % (Manual) Lymphocytes % (Manual) Monocytes % (Manual) Basophils % (Manual) Nucleated RBC % Seg Neutrophils # Seg Neutrophils # Man Lymphocytes # (Manual) Monocytes # (Manual) Eosinophils # (Manual) Basophils # (Manual) PT INR D-Dimer ABG pH ABG pO2 ABG HCO3 ABG O2 Saturation ABG Base Excess ABG Hemoglobin Oxyhemoglobin Sodium Potassium Chloride Carbon Dioxide BUN 33 H Creatinine 0.5 L Glucose 136 H POC Glucose 164 H 145 H Lactic Acid Calcium Magnesium Iron TIBC Ferritin AST ALT Lactate Dehydrogenase Troponin T C-Reactive Protein Total Protein Albumin Prealbumin Cholesterol LDL Cholesterol Direct HDL Cholesterol Urine WBC (Auto) Vancomycin Trough Coronavirus (PCR) Crossmatch 07/13/19 07/14/19 07/14/19 18:30 00:21 04:40 WBC 22.9 H RBC 2.45 L Hgb 6.6 L Hct 21.1 L MCV MCH 27 L MCHC 31 L RDW 19.2 H Plt Count Lymph % (Auto) [place] % (Auto) Lymph # [place] # Baso # Seg Neutrophils % Seg Neuts % (Manual) 91.0 H Lymphocytes % (Manual) 7.0 L Monocytes % (Manual) Basophils % (Manual) Nucleated RBC % Seg Neutrophils # Seg Neutrophils # Man 20.8 H Lymphocytes # (Manual) Monocytes # (Manual) Eosinophils # (Manual) Basophils # (Manual) PT INR D-Dimer ABG pH ABG pO2 58.1 L ABG HCO3 ABG O2 Saturation 88.7 L ABG Base Excess ABG Hemoglobin 7.8 L Oxyhemoglobin 86.8 L Sodium Potassium Chloride Carbon Dioxide BUN Creatinine Glucose POC Glucose 118 H Lactic Acid Calcium Magnesium Iron TIBC Ferritin AST ALT Lactate Dehydrogenase Troponin T C-Reactive Protein Total Protein Albumin Prealbumin Cholesterol LDL Cholesterol Direct HDL Cholesterol Urine WBC (Auto) Vancomycin Trough Coronavirus (PCR) Crossmatch 07/14/19 07/14/19 07/14/19 04:40 05:38 05:45 WBC RBC Hgb Hct MCV MCH MCHC RDW Plt Count Lymph % (Auto) [place] % (Auto) Lymph # [place] # Baso # Seg Neutrophils % Seg Neuts % (Manual) Lymphocytes % (Manual) Monocytes % (Manual) Basophils % (Manual) Nucleated RBC % Seg Neutrophils # Seg Neutrophils # Man Lymphocytes # (Manual) Monocytes # (Manual) Eosinophils # (Manual) Basophils # (Manual) PT INR D-Dimer ABG pH 7.230 L ABG pO2 72.1 L ABG HCO3 ABG O2 Saturation 89.3 L ABG Base Excess -2.7 L ABG Hemoglobin 6.7 L Oxyhemoglobin 87.7 L Sodium Potassium Chloride 107.4 H Carbon Dioxide BUN 45 H Creatinine Glucose 101 H POC Glucose 154 H Lactic Acid Calcium Magnesium Iron TIBC Ferritin AST ALT Lactate Dehydrogenase Troponin T C-Reactive Protein Total Protein Albumin Prealbumin Cholesterol LDL Cholesterol Direct HDL Cholesterol Urine WBC (Auto) Vancomycin Trough Coronavirus (PCR) Crossmatch 07/14/19 07/14/19 07/14/19 12:25 18:20 19:01 WBC 22.4 H RBC 2.70 L Hgb 7.5 L Hct 23.3 L MCV MCH MCHC RDW 19.5 H Plt Count Lymph % (Auto) [place] % (Auto) Lymph # [place] # Baso # Seg Neutrophils % Seg Neuts % (Manual) Lymphocytes % (Manual) Monocytes % (Manual) Basophils % (Manual) Nucleated RBC % Seg Neutrophils # Seg Neutrophils # Man Lymphocytes # (Manual) Monocytes # (Manual) Eosinophils # (Manual) Basophils # (Manual) PT INR D-Dimer ABG pH ABG pO2 ABG HCO3 ABG O2 Saturation ABG Base Excess ABG Hemoglobin Oxyhemoglobin Sodium Potassium Chloride Carbon Dioxide BUN Creatinine Glucose POC Glucose 136 H 131 H Lactic Acid Calcium Magnesium Iron TIBC Ferritin AST ALT Lactate Dehydrogenase Troponin T C-Reactive Protein Total Protein Albumin Prealbumin Cholesterol LDL Cholesterol Direct HDL Cholesterol Urine WBC (Auto) Vancomycin Trough Coronavirus (PCR) Crossmatch 07/15/19 07/15/19 07/15/19 00:17 04:35 05:18 WBC 20.6 H RBC 2.41 L Hgb 6.8 L Hct 20.7 L MCV MCH MCHC RDW 20.2 H Plt Count Lymph % (Auto) [place] % (Auto) Lymph # [place] # Baso # Seg Neutrophils % Seg Neuts % (Manual) 92.0 H Lymphocytes % (Manual) 5.0 L Monocytes % (Manual) Basophils % (Manual) Nucleated RBC % Seg Neutrophils # Seg Neutrophils # Man 19.0 H Lymphocytes # (Manual) 1.0 L Monocytes # (Manual) Eosinophils # (Manual) Basophils # (Manual) PT INR D-Dimer ABG pH 7.342 L ABG pO2 ABG HCO3 ABG O2 Saturation ABG Base Excess -3.1 L ABG Hemoglobin 7.2 L Oxyhemoglobin 94.9 L Sodium Potassium Chloride Carbon Dioxide BUN Creatinine Glucose POC Glucose 116 H Lactic Acid Calcium Magnesium Iron TIBC Ferritin AST ALT Lactate Dehydrogenase Troponin T C-Reactive Protein Total Protein Albumin Prealbumin Cholesterol LDL Cholesterol Direct HDL Cholesterol Urine WBC (Auto) Vancomycin Trough Coronavirus (PCR) Crossmatch 07/15/19 07/15/19 07/15/19 05:18 05:57 11:28 WBC RBC Hgb Hct MCV MCH MCHC RDW Plt Count Lymph % (Auto) [place] % (Auto) Lymph # [place] # Baso # Seg Neutrophils % Seg Neuts % (Manual) Lymphocytes % (Manual) Monocytes % (Manual) Basophils % (Manual) Nucleated RBC % Seg Neutrophils # Seg Neutrophils # Man Lymphocytes # (Manual) Monocytes # (Manual) Eosinophils # (Manual) Basophils # (Manual) PT INR D-Dimer ABG pH ABG pO2 ABG HCO3 ABG O2 Saturation ABG Base Excess ABG Hemoglobin Oxyhemoglobin Sodium Potassium Chloride Carbon Dioxide 20 L BUN 59 H Creatinine Glucose 140 H POC Glucose 139 H 117 H Lactic Acid Calcium Magnesium Iron TIBC Ferritin AST ALT Lactate Dehydrogenase Troponin T C-Reactive Protein Total Protein Albumin Prealbumin Cholesterol LDL Cholesterol Direct HDL Cholesterol Urine WBC (Auto) Vancomycin Trough Coronavirus (PCR) Crossmatch 07/15/19 07/16/19 07/16/19 18:13 00:06 03:43 WBC RBC Hgb Hct MCV MCH MCHC RDW Plt Count Lymph % (Auto) [place] % (Auto) Lymph # [place] # Baso # Seg Neutrophils % Seg Neuts % (Manual) Lymphocytes % (Manual) Monocytes % (Manual) Basophils % (Manual) Nucleated RBC % Seg Neutrophils # Seg Neutrophils # Man Lymphocytes # (Manual) Monocytes # (Manual) Eosinophils # (Manual) Basophils # (Manual) PT INR D-Dimer ABG pH 7.344 L ABG pO2 68.6 L ABG HCO3 ABG O2 Saturation ABG Base Excess -3.5 L ABG Hemoglobin 6.1 L Oxyhemoglobin 93.3 L Sodium Potassium Chloride Carbon Dioxide BUN Creatinine Glucose POC Glucose 114 H 119 H Lactic Acid Calcium Magnesium Iron TIBC Ferritin AST ALT Lactate Dehydrogenase Troponin T C-Reactive Protein Total Protein Albumin Prealbumin Cholesterol LDL Cholesterol Direct HDL Cholesterol Urine WBC (Auto) Vancomycin Trough Coronavirus (PCR) Crossmatch 07/16/19 07/16/19 07/16/19 04:41 04:41 12:09 WBC 19.6 H RBC 2.81 L Hgb 7.7 L Hct 24.0 L MCV MCH 27 L MCHC RDW 19.4 H Plt Count 514 H Lymph % (Auto) 6.7 L [place] % (Auto) Lymph # [place] # 1.0 H Baso # Seg Neutrophils % 87.0 H Seg Neuts % (Manual) Lymphocytes % (Manual) Monocytes % (Manual) Basophils % (Manual) Nucleated RBC % Seg Neutrophils # 17.0 H Seg Neutrophils # Man Lymphocytes # (Manual) Monocytes # (Manual) Eosinophils # (Manual) Basophils # (Manual) PT INR D-Dimer ABG pH ABG pO2 ABG HCO3 ABG O2 Saturation ABG Base Excess ABG Hemoglobin Oxyhemoglobin Sodium Potassium 5.9 H Chloride Carbon Dioxide 21 L BUN 73 H Creatinine 2.0 H Glucose POC Glucose 141 H Lactic Acid Calcium Magnesium Iron TIBC Ferritin AST ALT Lactate Dehydrogenase Troponin T C-Reactive Protein Total Protein Albumin Prealbumin Cholesterol LDL Cholesterol Direct HDL Cholesterol Urine WBC (Auto) Vancomycin Trough Coronavirus (PCR) Crossmatch 07/16/19 07/16/19 07/17/19 16:19 17:45 00:16 WBC RBC Hgb Hct MCV MCH MCHC RDW Plt Count Lymph % (Auto) [place] % (Auto) Lymph # [place] # Baso # Seg Neutrophils % Seg Neuts % (Manual) Lymphocytes % (Manual) Monocytes % (Manual) Basophils % (Manual) Nucleated RBC % Seg Neutrophils # Seg Neutrophils # Man Lymphocytes # (Manual) Monocytes # (Manual) Eosinophils # (Manual) Basophils # (Manual) PT INR D-Dimer ABG pH ABG pO2 ABG HCO3 ABG O2 Saturation ABG Base Excess ABG Hemoglobin Oxyhemoglobin Sodium Potassium 5.1 H Chloride Carbon Dioxide 20 L BUN 72 H Creatinine 1.7 H Glucose 128 H POC Glucose 181 H 164 H Lactic Acid Calcium Magnesium Iron TIBC Ferritin AST ALT Lactate Dehydrogenase Troponin T C-Reactive Protein Total Protein Albumin Prealbumin Cholesterol LDL Cholesterol Direct HDL Cholesterol Urine WBC (Auto) Vancomycin Trough Coronavirus (PCR) Crossmatch 07/17/19 07/17/19 07/17/19 04:20 04:39 04:39 WBC 16.1 H RBC 2.92 L Hgb 8.0 L Hct 25.5 L MCV MCH MCHC 31 L RDW 19.7 H Plt Count 564 H Lymph % (Auto) 3.6 L [place] % (Auto) 7.4 H Lymph # 0.6 L [place] # 1.2 H Baso # Seg Neutrophils % 87.5 H Seg Neuts % (Manual) Lymphocytes % (Manual) Monocytes % (Manual) Basophils % (Manual) Nucleated RBC % Seg Neutrophils # 14.1 H Seg Neutrophils # Man Lymphocytes # (Manual) Monocytes # (Manual) Eosinophils # (Manual) Basophils # (Manual) PT INR D-Dimer ABG pH 7.231 L ABG pO2 95.3 H ABG HCO3 ABG O2 Saturation ABG Base Excess -5.0 L ABG Hemoglobin 7.9 L Oxyhemoglobin 94.8 L Sodium Potassium Chloride 107.8 H Carbon Dioxide 21 L BUN 68 H Creatinine Glucose POC Glucose Lactic Acid Calcium Magnesium Iron TIBC Ferritin AST ALT Lactate Dehydrogenase Troponin T C-Reactive Protein Total Protein Albumin Prealbumin Cholesterol LDL Cholesterol Direct HDL Cholesterol Urine WBC (Auto) Vancomycin Trough Coronavirus (PCR) Crossmatch 07/17/19 07/17/19 07/17/19 05:28 12:11 18:48 WBC RBC Hgb Hct MCV MCH MCHC RDW Plt Count Lymph % (Auto) [place] % (Auto) Lymph # [place] # Baso # Seg Neutrophils % Seg Neuts % (Manual) Lymphocytes % (Manual) Monocytes % (Manual) Basophils % (Manual) Nucleated RBC % Seg Neutrophils # Seg Neutrophils # Man Lymphocytes # (Manual) Monocytes # (Manual) Eosinophils # (Manual) Basophils # (Manual) PT INR D-Dimer ABG pH ABG pO2 ABG HCO3 ABG O2 Saturation ABG Base Excess ABG Hemoglobin Oxyhemoglobin Sodium Potassium Chloride Carbon Dioxide BUN Creatinine Glucose POC Glucose 121 H 125 H 174 H Lactic Acid Calcium Magnesium Iron TIBC Ferritin AST ALT Lactate Dehydrogenase Troponin T C-Reactive Protein Total Protein Albumin Prealbumin Cholesterol LDL Cholesterol Direct HDL Cholesterol Urine WBC (Auto) Vancomycin Trough Coronavirus (PCR) Crossmatch 07/17/19 07/17/19 07/18/19 19:55 23:57 02:30 WBC RBC Hgb Hct MCV MCH MCHC RDW Plt Count Lymph % (Auto) [place] % (Auto) Lymph # [place] # Baso # Seg Neutrophils % Seg Neuts % (Manual) Lymphocytes % (Manual) Monocytes % (Manual) Basophils % (Manual) Nucleated RBC % Seg Neutrophils # Seg Neutrophils # Man Lymphocytes # (Manual) Monocytes # (Manual) Eosinophils # (Manual) Basophils # (Manual) PT INR D-Dimer ABG pH 7.344 L 7.294 L ABG pO2 78.5 L 119.2 H ABG HCO3 ABG O2 Saturation ABG Base Excess -3.3 L -2.6 L ABG Hemoglobin 8.6 L 8.1 L Oxyhemoglobin 94.8 L Sodium Potassium Chloride Carbon Dioxide BUN Creatinine Glucose POC Glucose 148 H Lactic Acid Calcium Magnesium Iron TIBC Ferritin AST ALT Lactate Dehydrogenase Troponin T C-Reactive Protein Total Protein Albumin Prealbumin Cholesterol LDL Cholesterol Direct HDL Cholesterol Urine WBC (Auto) Vancomycin Trough Coronavirus (PCR) Crossmatch 07/18/19 07/18/19 07/18/19 04:49 05:22 05:22 WBC 15.9 H RBC 3.00 L Hgb 8.1 L Hct 26.0 L MCV MCH 27 L MCHC 31 L RDW 19.4 H Plt Count 733 H Lymph % (Auto) 6.3 L [place] % (Auto) 7.4 H Lymph # 1.0 L [place] # 1.2 H Baso # 0.2 H Seg Neutrophils % 83.8 H Seg Neuts % (Manual) Lymphocytes % (Manual) Monocytes % (Manual) Basophils % (Manual) Nucleated RBC % Seg Neutrophils # 13.3 H Seg Neutrophils # Man Lymphocytes # (Manual) Monocytes # (Manual) Eosinophils # (Manual) Basophils # (Manual) PT INR D-Dimer ABG pH ABG pO2 ABG HCO3 ABG O2 Saturation ABG Base Excess ABG Hemoglobin Oxyhemoglobin Sodium Potassium Chloride 110.6 H Carbon Dioxide BUN 61 H Creatinine Glucose 109 H POC Glucose 116 H Lactic Acid Calcium Magnesium Iron TIBC Ferritin AST ALT Lactate Dehydrogenase Troponin T C-Reactive Protein Total Protein Albumin Prealbumin Cholesterol LDL Cholesterol Direct HDL Cholesterol Urine WBC (Auto) Vancomycin Trough Coronavirus (PCR) Crossmatch 07/18/19 07/18/19 07/18/19 12:23 18:06 22:20 WBC RBC Hgb Hct MCV MCH MCHC RDW Plt Count Lymph % (Auto) [place] % (Auto) Lymph # [place] # Baso # Seg Neutrophils % Seg Neuts % (Manual) Lymphocytes % (Manual) Monocytes % (Manual) Basophils % (Manual) Nucleated RBC % Seg Neutrophils # Seg Neutrophils # Man Lymphocytes # (Manual) Monocytes # (Manual) Eosinophils # (Manual) Basophils # (Manual) PT INR D-Dimer ABG pH 7.338 L ABG pO2 135.1 H ABG HCO3 ABG O2 Saturation ABG Base Excess ABG Hemoglobin 9.2 L Oxyhemoglobin Sodium Potassium Chloride Carbon Dioxide BUN Creatinine Glucose POC Glucose 114 H 113 H Lactic Acid Calcium Magnesium Iron TIBC Ferritin AST ALT Lactate Dehydrogenase Troponin T C-Reactive Protein Total Protein Albumin Prealbumin Cholesterol LDL Cholesterol Direct HDL Cholesterol Urine WBC (Auto) Vancomycin Trough Coronavirus (PCR) Crossmatch 07/18/19 07/19/19 07/19/19 23:33 03:45 05:18 WBC RBC Hgb Hct MCV MCH MCHC RDW Plt Count Lymph % (Auto) [place] % (Auto) Lymph # [place] # Baso # Seg Neutrophils % Seg Neuts % (Manual) Lymphocytes % (Manual) Monocytes % (Manual) Basophils % (Manual) Nucleated RBC % Seg Neutrophils # Seg Neutrophils # Man Lymphocytes # (Manual) Monocytes # (Manual) Eosinophils # (Manual) Basophils # (Manual) PT INR D-Dimer ABG pH 7.342 L ABG pO2 95.0 H ABG HCO3 ABG O2 Saturation ABG Base Excess ABG Hemoglobin 8.5 L Oxyhemoglobin Sodium Potassium Chloride Carbon Dioxide BUN Creatinine Glucose POC Glucose 125 H 111 H Lactic Acid Calcium Magnesium Iron TIBC Ferritin AST ALT Lactate Dehydrogenase Troponin T C-Reactive Protein Total Protein Albumin Prealbumin Cholesterol LDL Cholesterol Direct HDL Cholesterol Urine WBC (Auto) Vancomycin Trough Coronavirus (PCR) Crossmatch 07/19/19 07/19/19 07/19/19 08:45 08:45 11:47 WBC 15.9 H RBC 3.31 L Hgb 9.1 L Hct 28.4 L MCV MCH 27 L MCHC RDW 19.1 H Plt Count 858 H Lymph % (Auto) 4.9 L [place] % (Auto) 8.1 H Lymph # 0.8 L [place] # 1.3 H Baso # Seg Neutrophils % 85.5 H Seg Neuts % (Manual) Lymphocytes % (Manual) Monocytes % (Manual) Basophils % (Manual) Nucleated RBC % Seg Neutrophils # 13.6 H Seg Neutrophils # Man Lymphocytes # (Manual) Monocytes # (Manual) Eosinophils # (Manual) Basophils # (Manual) PT INR D-Dimer ABG pH ABG pO2 ABG HCO3 ABG O2 Saturation ABG Base Excess ABG Hemoglobin Oxyhemoglobin Sodium Potassium Chloride 111.6 H Carbon Dioxide BUN 50 H Creatinine 0.7 L Glucose 118 H POC Glucose 114 H Lactic Acid Calcium Magnesium Iron TIBC Ferritin AST ALT Lactate Dehydrogenase Troponin T C-Reactive Protein Total Protein Albumin Prealbumin Cholesterol LDL Cholesterol Direct HDL Cholesterol Urine WBC (Auto) Vancomycin Trough Coronavirus (PCR) Crossmatch 07/19/19 07/19/19 07/20/19 18:25 23:44 04:39 WBC RBC Hgb Hct MCV MCH MCHC RDW Plt Count Lymph % (Auto) [place] % (Auto) Lymph # [place] # Baso # Seg Neutrophils % Seg Neuts % (Manual) Lymphocytes % (Manual) Monocytes % (Manual) Basophils % (Manual) Nucleated RBC % Seg Neutrophils # Seg Neutrophils # Man Lymphocytes # (Manual) Monocytes # (Manual) Eosinophils # (Manual) Basophils # (Manual) PT INR D-Dimer ABG pH ABG pO2 ABG HCO3 ABG O2 Saturation ABG Base Excess ABG Hemoglobin Oxyhemoglobin Sodium Potassium Chloride 110.3 H Carbon Dioxide BUN 44 H Creatinine 0.6 L Glucose 120 H POC Glucose 115 H 117 H Lactic Acid Calcium Magnesium Iron TIBC Ferritin AST ALT Lactate Dehydrogenase Troponin T C-Reactive Protein Total Protein Albumin Prealbumin Cholesterol LDL Cholesterol Direct HDL Cholesterol Urine WBC (Auto) Vancomycin Trough Coronavirus (PCR) Crossmatch 07/20/19 07/21/19 07/21/19 05:30 11:59 17:40 WBC RBC Hgb Hct MCV MCH MCHC RDW Plt Count Lymph % (Auto) [place] % (Auto) Lymph # [place] # Baso # Seg Neutrophils % Seg Neuts % (Manual) Lymphocytes % (Manual) Monocytes % (Manual) Basophils % (Manual) Nucleated RBC % Seg Neutrophils # Seg Neutrophils # Man Lymphocytes # (Manual) Monocytes # (Manual) Eosinophils # (Manual) Basophils # (Manual) PT INR D-Dimer ABG pH ABG pO2 ABG HCO3 ABG O2 Saturation ABG Base Excess ABG Hemoglobin Oxyhemoglobin Sodium Potassium Chloride Carbon Dioxide BUN Creatinine Glucose POC Glucose 131 H 122 H 125 H Lactic Acid Calcium Magnesium Iron TIBC Ferritin AST ALT Lactate Dehydrogenase Troponin T C-Reactive Protein Total Protein Albumin Prealbumin Cholesterol LDL Cholesterol Direct HDL Cholesterol Urine WBC (Auto) Vancomycin Trough Coronavirus (PCR) Crossmatch 07/22/19 07/22/19 07/22/19 05:38 05:38 12:29 WBC 12.6 H RBC 3.19 L Hgb 8.9 L Hct 27.5 L MCV MCH MCHC RDW 18.9 H Plt Count 1101 H* Lymph % (Auto) [place] % (Auto) 12.2 H Lymph # [place] # 1.5 H Baso # Seg Neutrophils % 72.8 H Seg Neuts % (Manual) 76.0 H Lymphocytes % (Manual) 7.0 L Monocytes % (Manual) 14.0 H Basophils % (Manual) Nucleated RBC % 1.0 H Seg Neutrophils # 9.2 H Seg Neutrophils # Man 9.6 H Lymphocytes # (Manual) 0.9 L Monocytes # (Manual) 1.8 H Eosinophils # (Manual) Basophils # (Manual) PT INR D-Dimer ABG pH ABG pO2 ABG HCO3 ABG O2 Saturation ABG Base Excess ABG Hemoglobin Oxyhemoglobin Sodium Potassium 3.4 L Chloride Carbon Dioxide BUN 29 H Creatinine 0.5 L Glucose POC Glucose 116 H Lactic Acid Calcium Magnesium Iron TIBC Ferritin AST ALT Lactate Dehydrogenase Troponin T C-Reactive Protein Total Protein Albumin Prealbumin Cholesterol LDL Cholesterol Direct HDL Cholesterol Urine WBC (Auto) Vancomycin Trough Coronavirus (PCR) Crossmatch 07/22/19 07/22/19 07/23/19 18:20 23:51 04:52 WBC RBC Hgb Hct MCV MCH MCHC RDW Plt Count Lymph % (Auto) [place] % (Auto) Lymph # [place] # Baso # Seg Neutrophils % Seg Neuts % (Manual) Lymphocytes % (Manual) Monocytes % (Manual) Basophils % (Manual) Nucleated RBC % Seg Neutrophils # Seg Neutrophils # Man Lymphocytes # (Manual) Monocytes # (Manual) Eosinophils # (Manual) Basophils # (Manual) PT INR D-Dimer ABG pH ABG pO2 ABG HCO3 ABG O2 Saturation ABG Base Excess ABG Hemoglobin Oxyhemoglobin Sodium Potassium Chloride Carbon Dioxide BUN 24 H Creatinine 0.4 L Glucose POC Glucose 107 H 110 H Lactic Acid Calcium Magnesium Iron TIBC Ferritin AST ALT Lactate Dehydrogenase Troponin T C-Reactive Protein Total Protein Albumin Prealbumin Cholesterol LDL Cholesterol Direct HDL Cholesterol Urine WBC (Auto) Vancomycin Trough Coronavirus (PCR) Crossmatch 07/23/19 07/23/19 07/24/19 06:00 23:15 04:40 WBC RBC Hgb Hct MCV MCH MCHC RDW Plt Count Lymph % (Auto) [place] % (Auto) Lymph # [place] # Baso # Seg Neutrophils % Seg Neuts % (Manual) Lymphocytes % (Manual) Monocytes % (Manual) Basophils % (Manual) Nucleated RBC % Seg Neutrophils # Seg Neutrophils # Man Lymphocytes # (Manual) Monocytes # (Manual) Eosinophils # (Manual) Basophils # (Manual) PT INR D-Dimer ABG pH ABG pO2 73.5 L ABG HCO3 27.0 H 28.5 H ABG O2 Saturation 94.5 L ABG Base Excess ABG Hemoglobin 9.4 L 8.9 L Oxyhemoglobin 94.0 L 92.7 L Sodium Potassium Chloride Carbon Dioxide BUN Creatinine Glucose POC Glucose 117 H Lactic Acid Calcium Magnesium Iron TIBC Ferritin AST ALT Lactate Dehydrogenase Troponin T C-Reactive Protein Total Protein Albumin Prealbumin Cholesterol LDL Cholesterol Direct HDL Cholesterol Urine WBC (Auto) Vancomycin Trough Coronavirus (PCR) Crossmatch 07/24/19 07/24/19 07/25/19 05:25 12:06 00:16 WBC RBC Hgb Hct MCV MCH MCHC RDW Plt Count Lymph % (Auto) [place] % (Auto) Lymph # [place] # Baso # Seg Neutrophils % Seg Neuts % (Manual) Lymphocytes % (Manual) Monocytes % (Manual) Basophils % (Manual) Nucleated RBC % Seg Neutrophils # Seg Neutrophils # Man Lymphocytes # (Manual) Monocytes # (Manual) Eosinophils # (Manual) Basophils # (Manual) PT INR D-Dimer ABG pH ABG pO2 ABG HCO3 ABG O2 Saturation ABG Base Excess ABG Hemoglobin Oxyhemoglobin Sodium Potassium Chloride Carbon Dioxide BUN Creatinine Glucose POC Glucose 114 H 108 H 106 H Lactic Acid Calcium Magnesium Iron TIBC Ferritin AST ALT Lactate Dehydrogenase Troponin T C-Reactive Protein Total Protein Albumin Prealbumin Cholesterol LDL Cholesterol Direct HDL Cholesterol Urine WBC (Auto) Vancomycin Trough Coronavirus (PCR) Crossmatch 07/25/19 07/25/19 07/25/19 05:14 05:14 05:17 WBC 17.8 H RBC 3.32 L Hgb 9.2 L Hct 28.6 L MCV MCH MCHC RDW 19.9 H Plt Count 994 H Lymph % (Auto) [place] % (Auto) Lymph # [place] # Baso # Seg Neutrophils % Seg Neuts % (Manual) 82.0 H Lymphocytes % (Manual) 5.0 L Monocytes % (Manual) Basophils % (Manual) Nucleated RBC % Seg Neutrophils # Seg Neutrophils # Man 14.6 H Lymphocytes # (Manual) 0.9 L Monocytes # (Manual) 1.2 H Eosinophils # (Manual) Basophils # (Manual) PT INR D-Dimer ABG pH ABG pO2 ABG HCO3 ABG O2 Saturation ABG Base Excess ABG Hemoglobin Oxyhemoglobin Sodium Potassium Chloride Carbon Dioxide BUN Creatinine 0.4 L Glucose 110 H POC Glucose 107 H Lactic Acid Calcium Magnesium Iron TIBC Ferritin AST ALT Lactate Dehydrogenase Troponin T C-Reactive Protein Total Protein Albumin Prealbumin Cholesterol LDL Cholesterol Direct HDL Cholesterol Urine WBC (Auto) Vancomycin Trough Coronavirus (PCR) Crossmatch 07/25/19 07/25/19 07/26/19 11:55 23:49 06:01 WBC RBC Hgb Hct MCV MCH MCHC RDW Plt Count Lymph % (Auto) [place] % (Auto) Lymph # [place] # Baso # Seg Neutrophils % Seg Neuts % (Manual) Lymphocytes % (Manual) Monocytes % (Manual) Basophils % (Manual) Nucleated RBC % Seg Neutrophils # Seg Neutrophils # Man Lymphocytes # (Manual) Monocytes # (Manual) Eosinophils # (Manual) Basophils # (Manual) PT INR D-Dimer ABG pH ABG pO2 ABG HCO3 ABG O2 Saturation ABG Base Excess ABG Hemoglobin Oxyhemoglobin Sodium Potassium Chloride Carbon Dioxide BUN Creatinine Glucose POC Glucose 123 H 118 H 106 H Lactic Acid Calcium Magnesium Iron TIBC Ferritin AST ALT Lactate Dehydrogenase Troponin T C-Reactive Protein Total Protein Albumin Prealbumin Cholesterol LDL Cholesterol Direct HDL Cholesterol Urine WBC (Auto) Vancomycin Trough Coronavirus (PCR) Crossmatch 07/26/19 07/27/19 07/27/19 17:02 00:28 05:16 WBC RBC Hgb Hct MCV MCH MCHC RDW Plt Count Lymph % (Auto) [place] % (Auto) Lymph # [place] # Baso # Seg Neutrophils % Seg Neuts % (Manual) Lymphocytes % (Manual) Monocytes % (Manual) Basophils % (Manual) Nucleated RBC % Seg Neutrophils # Seg Neutrophils # Man Lymphocytes # (Manual) Monocytes # (Manual) Eosinophils # (Manual) Basophils # (Manual) PT INR D-Dimer ABG pH ABG pO2 63.4 L ABG HCO3 31.3 H ABG O2 Saturation 92.7 L ABG Base Excess 6.3 H ABG Hemoglobin 7.6 L Oxyhemoglobin 90.9 L Sodium Potassium Chloride Carbon Dioxide BUN Creatinine Glucose POC Glucose 116 H 158 H Lactic Acid Calcium Magnesium Iron TIBC Ferritin AST ALT Lactate Dehydrogenase Troponin T C-Reactive Protein Total Protein Albumin Prealbumin Cholesterol LDL Cholesterol Direct HDL Cholesterol Urine WBC (Auto) Vancomycin Trough Coronavirus (PCR) Crossmatch 07/28/19 07/28/19 07/28/19 10:13 10:13 23:54 WBC 18.5 H RBC 3.20 L Hgb 8.8 L Hct 26.8 L MCV MCH 27 L MCHC RDW 19.9 H Plt Count 730 H Lymph % (Auto) [place] % (Auto) Lymph # [place] # Baso # Seg Neutrophils % Seg Neuts % (Manual) Lymphocytes % (Manual) Monocytes % (Manual) Basophils % (Manual) Nucleated RBC % Seg Neutrophils # Seg Neutrophils # Man Lymphocytes # (Manual) Monocytes # (Manual) Eosinophils # (Manual) Basophils # (Manual) PT INR D-Dimer ABG pH ABG pO2 ABG HCO3 ABG O2 Saturation ABG Base Excess ABG Hemoglobin Oxyhemoglobin Sodium Potassium 3.2 L Chloride 97.5 L Carbon Dioxide 31 H BUN Creatinine 0.5 L Glucose POC Glucose 120 H Lactic Acid Calcium Magnesium Iron TIBC Ferritin AST ALT Lactate Dehydrogenase Troponin T C-Reactive Protein Total Protein Albumin Prealbumin Cholesterol LDL Cholesterol Direct HDL Cholesterol Urine WBC (Auto) Vancomycin Trough Coronavirus (PCR) Crossmatch 07/29/19 07/29/19 07/29/19 11:57 17:43 Unknown WBC RBC Hgb Hct MCV MCH MCHC RDW Plt Count Lymph % (Auto) [place] % (Auto) Lymph # [place] # Baso # Seg Neutrophils % Seg Neuts % (Manual) Lymphocytes % (Manual) Monocytes % (Manual) Basophils % (Manual) Nucleated RBC % Seg Neutrophils # Seg Neutrophils # Man Lymphocytes # (Manual) Monocytes # (Manual) Eosinophils # (Manual) Basophils # (Manual) PT INR D-Dimer ABG pH ABG pO2 ABG HCO3 ABG O2 Saturation ABG Base Excess ABG Hemoglobin Oxyhemoglobin Sodium Potassium Chloride Carbon Dioxide BUN Creatinine Glucose POC Glucose 112 H Lactic Acid Calcium Magnesium Iron TIBC Ferritin AST ALT Lactate Dehydrogenase Troponin T C-Reactive Protein Total Protein Albumin Prealbumin Cholesterol LDL Cholesterol Direct HDL Cholesterol Urine WBC (Auto) 63.0 H Vancomycin Trough Coronavirus (PCR) Positive A Crossmatch 07/30/19 07/30/19 07/30/19 00:20 04:35 04:35 WBC 24.3 H RBC 3.12 L Hgb 8.5 L Hct 26.3 L MCV MCH 27 L MCHC RDW 20.2 H Plt Count 550 H Lymph % (Auto) [place] % (Auto) Lymph # [place] # Baso # Seg Neutrophils % Seg Neuts % (Manual) Lymphocytes % (Manual) Monocytes % (Manual) Basophils % (Manual) Nucleated RBC % Seg Neutrophils # Seg Neutrophils # Man Lymphocytes # (Manual) Monocytes # (Manual) Eosinophils # (Manual) Basophils # (Manual) PT INR D-Dimer ABG pH ABG pO2 ABG HCO3 ABG O2 Saturation ABG Base Excess ABG Hemoglobin Oxyhemoglobin Sodium Potassium 3.0 L Chloride 96.3 L Carbon Dioxide 32 H BUN Creatinine 0.5 L Glucose POC Glucose 106 H Lactic Acid Calcium Magnesium Iron TIBC Ferritin AST ALT Lactate Dehydrogenase Troponin T C-Reactive Protein Total Protein Albumin Prealbumin Cholesterol LDL Cholesterol Direct HDL Cholesterol Urine WBC (Auto) Vancomycin Trough Coronavirus (PCR) Crossmatch 07/31/19 07/31/19 07/31/19 04:42 04:42 11:33 WBC 23.8 H RBC 3.10 L Hgb 8.4 L Hct 26.1 L MCV MCH 27 L MCHC RDW 19.6 H Plt Count 561 H Lymph % (Auto) [place] % (Auto) Lymph # [place] # Baso # Seg Neutrophils % Seg Neuts % (Manual) Lymphocytes % (Manual) Monocytes % (Manual) Basophils % (Manual) Nucleated RBC % Seg Neutrophils # Seg Neutrophils # Man Lymphocytes # (Manual) Monocytes # (Manual) Eosinophils # (Manual) Basophils # (Manual) PT INR D-Dimer ABG pH ABG pO2 ABG HCO3 ABG O2 Saturation ABG Base Excess ABG Hemoglobin Oxyhemoglobin Sodium 135 L Potassium Chloride 93.9 L Carbon Dioxide 32 H BUN Creatinine 0.4 L Glucose POC Glucose 116 H Lactic Acid Calcium Magnesium Iron TIBC Ferritin AST ALT Lactate Dehydrogenase Troponin T C-Reactive Protein Total Protein Albumin 1.6 L Prealbumin 0.037 L Cholesterol LDL Cholesterol Direct HDL Cholesterol Urine WBC (Auto) Vancomycin Trough Coronavirus (PCR) Crossmatch 07/31/19 08/01/19 08/01/19 23:33 04:57 04:57 WBC 26.7 H RBC 3.12 L Hgb 8.5 L Hct 26.3 L MCV MCH 27 L MCHC RDW 19.2 H Plt Count 602 H Lymph % (Auto) [place] % (Auto) Lymph # [place] # Baso # Seg Neutrophils % Seg Neuts % (Manual) 93.0 H Lymphocytes % (Manual) 2.0 L Monocytes % (Manual) Basophils % (Manual) Nucleated RBC % Seg Neutrophils # Seg Neutrophils # Man 24.8 H Lymphocytes # (Manual) 0.5 L Monocytes # (Manual) 1.1 H Eosinophils # (Manual) Basophils # (Manual) PT INR D-Dimer ABG pH ABG pO2 ABG HCO3 ABG O2 Saturation ABG Base Excess ABG Hemoglobin Oxyhemoglobin Sodium 132 L Potassium Chloride 93.8 L Carbon Dioxide 31 H BUN Creatinine 0.3 L Glucose POC Glucose 148 H Lactic Acid Calcium 8.1 L Magnesium Iron TIBC Ferritin AST ALT Lactate Dehydrogenase Troponin T C-Reactive Protein Total Protein Albumin Prealbumin Cholesterol LDL Cholesterol Direct HDL Cholesterol Urine WBC (Auto) Vancomycin Trough Coronavirus (PCR) Crossmatch 08/01/19 08/02/19 08/02/19 12:16 00:22 05:24 WBC RBC Hgb Hct MCV MCH MCHC RDW Plt Count Lymph % (Auto) [place] % (Auto) Lymph # [place] # Baso # Seg Neutrophils % Seg Neuts % (Manual) Lymphocytes % (Manual) Monocytes % (Manual) Basophils % (Manual) Nucleated RBC % Seg Neutrophils # Seg Neutrophils # Man Lymphocytes # (Manual) Monocytes # (Manual) Eosinophils # (Manual) Basophils # (Manual) PT INR D-Dimer ABG pH ABG pO2 ABG HCO3 ABG O2 Saturation ABG Base Excess ABG Hemoglobin Oxyhemoglobin Sodium Potassium Chloride Carbon Dioxide BUN Creatinine Glucose POC Glucose 120 H 119 H 113 H Lactic Acid Calcium Magnesium Iron TIBC Ferritin AST ALT Lactate Dehydrogenase Troponin T C-Reactive Protein Total Protein Albumin Prealbumin Cholesterol LDL Cholesterol Direct HDL Cholesterol Urine WBC (Auto) Vancomycin Trough Coronavirus (PCR) Crossmatch 08/03/19 08/03/19 08/03/19 05:20 12:01 23:48 WBC RBC Hgb Hct MCV MCH MCHC RDW Plt Count Lymph % (Auto) [place] % (Auto) Lymph # [place] # Baso # Seg Neutrophils % Seg Neuts % (Manual) Lymphocytes % (Manual) Monocytes % (Manual) Basophils % (Manual) Nucleated RBC % Seg Neutrophils # Seg Neutrophils # Man Lymphocytes # (Manual) Monocytes # (Manual) Eosinophils # (Manual) Basophils # (Manual) PT INR D-Dimer ABG pH ABG pO2 ABG HCO3 ABG O2 Saturation ABG Base Excess ABG Hemoglobin Oxyhemoglobin Sodium Potassium Chloride Carbon Dioxide BUN Creatinine Glucose POC Glucose 118 H 106 H 120 H Lactic Acid Calcium Magnesium Iron TIBC Ferritin AST ALT Lactate Dehydrogenase Troponin T C-Reactive Protein Total Protein Albumin Prealbumin Cholesterol LDL Cholesterol Direct HDL Cholesterol Urine WBC (Auto) Vancomycin Trough Coronavirus (PCR) Crossmatch 08/04/19 08/04/19 08/04/19 05:38 05:38 06:29 WBC 26.1 H RBC 2.77 L Hgb 7.5 L Hct 23.2 L MCV MCH 27 L MCHC RDW 19.2 H Plt Count 648 H Lymph % (Auto) [place] % (Auto) Lymph # [place] # Baso # Seg Neutrophils % Seg Neuts % (Manual) 90.5 H Lymphocytes % (Manual) 3.5 L Monocytes % (Manual) Basophils % (Manual) Nucleated RBC % Seg Neutrophils # Seg Neutrophils # Man 23.6 H Lymphocytes # (Manual) 0.9 L Monocytes # (Manual) 1.2 H Eosinophils # (Manual) Basophils # (Manual) PT INR D-Dimer ABG pH ABG pO2 ABG HCO3 ABG O2 Saturation ABG Base Excess ABG Hemoglobin Oxyhemoglobin Sodium 132 L Potassium 3.4 L D Chloride 92.7 L Carbon Dioxide 33 H BUN Creatinine 0.2 L Glucose POC Glucose 108 H Lactic Acid Calcium 8.1 L Magnesium Iron TIBC Ferritin AST ALT Lactate Dehydrogenase Troponin T C-Reactive Protein Total Protein Albumin Prealbumin Cholesterol LDL Cholesterol Direct HDL Cholesterol Urine WBC (Auto) Vancomycin Trough Coronavirus (PCR) Crossmatch 08/04/19 08/05/19 08/05/19 12:30 04:58 04:58 WBC 21.0 H RBC 2.63 L Hgb 7.2 L Hct 21.9 L MCV 83 L MCH 27 L MCHC RDW 18.9 H Plt Count 691 H Lymph % (Auto) [place] % (Auto) Lymph # [place] # Baso # Seg Neutrophils % Seg Neuts % (Manual) 86.0 H Lymphocytes % (Manual) 3.0 L Monocytes % (Manual) 10.0 H Basophils % (Manual) Nucleated RBC % Seg Neutrophils # Seg Neutrophils # Man 18.1 H Lymphocytes # (Manual) 0.6 L Monocytes # (Manual) 2.1 H Eosinophils # (Manual) Basophils # (Manual) PT INR D-Dimer ABG pH ABG pO2 ABG HCO3 ABG O2 Saturation ABG Base Excess ABG Hemoglobin Oxyhemoglobin Sodium 134 L Potassium 3.2 L Chloride 93.2 L Carbon Dioxide 34 H BUN 8 L Creatinine 0.3 L Glucose POC Glucose 138 H Lactic Acid Calcium 8.1 L Magnesium Iron TIBC Ferritin AST ALT Lactate Dehydrogenase Troponin T C-Reactive Protein Total Protein Albumin Prealbumin Cholesterol LDL Cholesterol Direct HDL Cholesterol Urine WBC (Auto) Vancomycin Trough Coronavirus (PCR) Crossmatch 08/05/19 08/05/19 08/05/19 11:53 17:57 23:58 WBC RBC Hgb Hct MCV MCH MCHC RDW Plt Count Lymph % (Auto) [place] % (Auto) Lymph # [place] # Baso # Seg Neutrophils % Seg Neuts % (Manual) Lymphocytes % (Manual) Monocytes % (Manual) Basophils % (Manual) Nucleated RBC % Seg Neutrophils # Seg Neutrophils # Man Lymphocytes # (Manual) Monocytes # (Manual) Eosinophils # (Manual) Basophils # (Manual) PT INR D-Dimer ABG pH ABG pO2 ABG HCO3 ABG O2 Saturation ABG Base Excess ABG Hemoglobin Oxyhemoglobin Sodium Potassium Chloride Carbon Dioxide BUN Creatinine Glucose POC Glucose 106 H 111 H 116 H Lactic Acid Calcium Magnesium Iron TIBC Ferritin AST ALT Lactate Dehydrogenase Troponin T C-Reactive Protein Total Protein Albumin Prealbumin Cholesterol LDL Cholesterol Direct HDL Cholesterol Urine WBC (Auto) Vancomycin Trough Coronavirus (PCR) Crossmatch 08/06/19 08/06/19 08/06/19 04:11 04:11 06:04 WBC 20.8 H RBC 2.80 L Hgb 7.6 L Hct 23.5 L MCV MCH 27 L MCHC RDW 19.0 H Plt Count 723 H Lymph % (Auto) [place] % (Auto) Lymph # [place] # Baso # Seg Neutrophils % Seg Neuts % (Manual) 88.0 H Lymphocytes % (Manual) 3.0 L Monocytes % (Manual) Basophils % (Manual) Nucleated RBC % Seg Neutrophils # Seg Neutrophils # Man 18.3 H Lymphocytes # (Manual) 0.6 L Monocytes # (Manual) Eosinophils # (Manual) Basophils # (Manual) 0.2 H PT INR D-Dimer ABG pH ABG pO2 ABG HCO3 ABG O2 Saturation ABG Base Excess ABG Hemoglobin Oxyhemoglobin Sodium Potassium 3.4 L Chloride 95.2 L Carbon Dioxide 32 H BUN Creatinine 0.3 L Glucose POC Glucose 108 H Lactic Acid Calcium 8.2 L Magnesium Iron TIBC Ferritin AST ALT Lactate Dehydrogenase Troponin T C-Reactive Protein Total Protein Albumin Prealbumin Cholesterol LDL Cholesterol Direct HDL Cholesterol Urine WBC (Auto) Vancomycin Trough Coronavirus (PCR) Crossmatch 08/06/19 08/06/19 08/07/19 12:23 17:13 00:21 WBC RBC Hgb Hct MCV MCH MCHC RDW Plt Count Lymph % (Auto) [place] % (Auto) Lymph # [place] # Baso # Seg Neutrophils % Seg Neuts % (Manual) Lymphocytes % (Manual) Monocytes % (Manual) Basophils % (Manual) Nucleated RBC % Seg Neutrophils # Seg Neutrophils # Man Lymphocytes # (Manual) Monocytes # (Manual) Eosinophils # (Manual) Basophils # (Manual) PT INR D-Dimer ABG pH ABG pO2 ABG HCO3 ABG O2 Saturation ABG Base Excess ABG Hemoglobin Oxyhemoglobin Sodium Potassium Chloride Carbon Dioxide BUN Creatinine Glucose POC Glucose 112 H 132 H 147 H Lactic Acid Calcium Magnesium Iron TIBC Ferritin AST ALT Lactate Dehydrogenase Troponin T C-Reactive Protein Total Protein Albumin Prealbumin Cholesterol LDL Cholesterol Direct HDL Cholesterol Urine WBC (Auto) Vancomycin Trough Coronavirus (PCR) Crossmatch 08/07/19 08/07/19 08/07/19 05:16 05:23 05:23 WBC 30.3 H RBC 2.69 L Hgb 7.1 L Hct 22.2 L MCV 83 L MCH 27 L MCHC RDW 19.1 H Plt Count 650 H Lymph % (Auto) [place] % (Auto) Lymph # [place] # Baso # Seg Neutrophils % Seg Neuts % (Manual) 88.0 H Lymphocytes % (Manual) 5.0 L Monocytes % (Manual) Basophils % (Manual) Nucleated RBC % Seg Neutrophils # Seg Neutrophils # Man 26.7 H Lymphocytes # (Manual) Monocytes # (Manual) 2.1 H Eosinophils # (Manual) Basophils # (Manual) PT INR D-Dimer ABG pH ABG pO2 ABG HCO3 ABG O2 Saturation ABG Base Excess ABG Hemoglobin Oxyhemoglobin Sodium 135 L Potassium 3.4 L Chloride 95.4 L Carbon Dioxide 32 H BUN Creatinine 0.4 L Glucose 120 H POC Glucose 120 H Lactic Acid Calcium 7.7 L Magnesium Iron TIBC Ferritin AST ALT Lactate Dehydrogenase Troponin T C-Reactive Protein Total Protein Albumin Prealbumin Cholesterol LDL Cholesterol Direct HDL Cholesterol Urine WBC (Auto) Vancomycin Trough Coronavirus (PCR) Crossmatch 08/07/19 08/07/19 08/07/19 10:24 10:24 11:10 WBC RBC Hgb Hct MCV MCH MCHC RDW Plt Count Lymph % (Auto) [place] % (Auto) Lymph # [place] # Baso # Seg Neutrophils % Seg Neuts % (Manual) Lymphocytes % (Manual) Monocytes % (Manual) Basophils % (Manual) Nucleated RBC % Seg Neutrophils # Seg Neutrophils # Man Lymphocytes # (Manual) Monocytes # (Manual) Eosinophils # (Manual) Basophils # (Manual) PT INR D-Dimer 1808.06 H ABG pH ABG pO2 73.3 L ABG HCO3 33.9 H ABG O2 Saturation ABG Base Excess 9.0 H ABG Hemoglobin 6.3 L Oxyhemoglobin 94.3 L Sodium Potassium Chloride Carbon Dioxide BUN Creatinine Glucose POC Glucose Lactic Acid Calcium Magnesium Iron TIBC Ferritin AST ALT Lactate Dehydrogenase Troponin T C-Reactive Protein 11.10 H Total Protein Albumin Prealbumin Cholesterol LDL Cholesterol Direct HDL Cholesterol Urine WBC (Auto) Vancomycin Trough Coronavirus (PCR) Crossmatch 08/07/19 08/08/19 08/08/19 12:01 04:41 04:41 WBC 22.1 H RBC 2.82 L Hgb 7.7 L Hct 23.6 L MCV MCH 27 L MCHC RDW 19.1 H Plt Count 722 H Lymph % (Auto) [place] % (Auto) Lymph # [place] # Baso # Seg Neutrophils % Seg Neuts % (Manual) 90.0 H Lymphocytes % (Manual) 3.0 L Monocytes % (Manual) Basophils % (Manual) Nucleated RBC % Seg Neutrophils # Seg Neutrophils # Man 19.9 H Lymphocytes # (Manual) 0.7 L Monocytes # (Manual) 1.3 H Eosinophils # (Manual) Basophils # (Manual) PT INR D-Dimer ABG pH ABG pO2 ABG HCO3 ABG O2 Saturation ABG Base Excess ABG Hemoglobin Oxyhemoglobin Sodium 136 L Potassium Chloride 97.8 L Carbon Dioxide BUN Creatinine 0.3 L Glucose 105 H POC Glucose 130 H Lactic Acid Calcium 7.8 L Magnesium Iron TIBC Ferritin AST ALT Lactate Dehydrogenase Troponin T C-Reactive Protein Total Protein Albumin Prealbumin Cholesterol LDL Cholesterol Direct HDL Cholesterol Urine WBC (Auto) Vancomycin Trough Coronavirus (PCR) Crossmatch 08/08/19 08/08/19 08/09/19 11:46 18:35 00:12 WBC RBC Hgb Hct MCV MCH MCHC RDW Plt Count Lymph % (Auto) [place] % (Auto) Lymph # [place] # Baso # Seg Neutrophils % Seg Neuts % (Manual) Lymphocytes % (Manual) Monocytes % (Manual) Basophils % (Manual) Nucleated RBC % Seg Neutrophils # Seg Neutrophils # Man Lymphocytes # (Manual) Monocytes # (Manual) Eosinophils # (Manual) Basophils # (Manual) PT INR D-Dimer ABG pH ABG pO2 ABG HCO3 ABG O2 Saturation ABG Base Excess ABG Hemoglobin Oxyhemoglobin Sodium Potassium Chloride Carbon Dioxide BUN Creatinine Glucose POC Glucose 117 H 117 H 117 H Lactic Acid Calcium Magnesium Iron TIBC Ferritin AST ALT Lactate Dehydrogenase Troponin T C-Reactive Protein Total Protein Albumin Prealbumin Cholesterol LDL Cholesterol Direct HDL Cholesterol Urine WBC (Auto) Vancomycin Trough Coronavirus (PCR) Crossmatch 08/09/19 08/09/19 08/09/19 05:33 12:22 17:48 WBC RBC Hgb Hct MCV MCH MCHC RDW Plt Count Lymph % (Auto) [place] % (Auto) Lymph # [place] # Baso # Seg Neutrophils % Seg Neuts % (Manual) Lymphocytes % (Manual) Monocytes % (Manual) Basophils % (Manual) Nucleated RBC % Seg Neutrophils # Seg Neutrophils # Man Lymphocytes # (Manual) Monocytes # (Manual) Eosinophils # (Manual) Basophils # (Manual) PT INR D-Dimer ABG pH ABG pO2 ABG HCO3 ABG O2 Saturation ABG Base Excess ABG Hemoglobin Oxyhemoglobin Sodium Potassium Chloride Carbon Dioxide BUN Creatinine Glucose POC Glucose 119 H 133 H 123 H Lactic Acid Calcium Magnesium Iron TIBC Ferritin AST ALT Lactate Dehydrogenase Troponin T C-Reactive Protein Total Protein Albumin Prealbumin Cholesterol LDL Cholesterol Direct HDL Cholesterol Urine WBC (Auto) Vancomycin Trough Coronavirus (PCR) Crossmatch 08/09/19 08/09/19 08/10/19 17:59 18:15 00:02 WBC RBC Hgb 6.7 L Hct 20.4 L MCV MCH MCHC RDW Plt Count Lymph % (Auto) [place] % (Auto) Lymph # [place] # Baso # Seg Neutrophils % Seg Neuts % (Manual) Lymphocytes % (Manual) Monocytes % (Manual) Basophils % (Manual) Nucleated RBC % Seg Neutrophils # Seg Neutrophils # Man Lymphocytes # (Manual) Monocytes # (Manual) Eosinophils # (Manual) Basophils # (Manual) PT INR D-Dimer ABG pH ABG pO2 ABG HCO3 ABG O2 Saturation ABG Base Excess ABG Hemoglobin Oxyhemoglobin Sodium Potassium Chloride Carbon Dioxide BUN Creatinine Glucose POC Glucose 124 H Lactic Acid Calcium Magnesium Iron TIBC Ferritin AST ALT Lactate Dehydrogenase Troponin T C-Reactive Protein Total Protein Albumin Prealbumin Cholesterol LDL Cholesterol Direct HDL Cholesterol Urine WBC (Auto) Vancomycin Trough Coronavirus (PCR) Crossmatch See Detail 08/10/19 08/10/19 08/10/19 05:47 08:00 08:00 WBC 16.9 H RBC 2.94 L Hgb 8.2 L Hct 24.9 L MCV MCH MCHC RDW 17.0 H Plt Count 661 H Lymph % (Auto) [place] % (Auto) Lymph # [place] # Baso # Seg Neutrophils % Seg Neuts % (Manual) Lymphocytes % (Manual) Monocytes % (Manual) Basophils % (Manual) Nucleated RBC % Seg Neutrophils # Seg Neutrophils # Man Lymphocytes # (Manual) Monocytes # (Manual) Eosinophils # (Manual) Basophils # (Manual) PT INR D-Dimer ABG pH ABG pO2 ABG HCO3 ABG O2 Saturation ABG Base Excess ABG Hemoglobin Oxyhemoglobin Sodium Potassium Chloride Carbon Dioxide BUN Creatinine 0.3 L Glucose 116 H POC Glucose 148 H Lactic Acid Calcium 7.7 L Magnesium Iron TIBC Ferritin AST ALT Lactate Dehydrogenase Troponin T C-Reactive Protein Total Protein Albumin Prealbumin Cholesterol LDL Cholesterol Direct HDL Cholesterol Urine WBC (Auto) Vancomycin Trough Coronavirus (PCR) Crossmatch 08/10/19 08/10/19 08/10/19 12:38 18:06 23:56 WBC RBC Hgb Hct MCV MCH MCHC RDW Plt Count Lymph % (Auto) [place] % (Auto) Lymph # [place] # Baso # Seg Neutrophils % Seg Neuts % (Manual) Lymphocytes % (Manual) Monocytes % (Manual) Basophils % (Manual) Nucleated RBC % Seg Neutrophils # Seg Neutrophils # Man Lymphocytes # (Manual) Monocytes # (Manual) Eosinophils # (Manual) Basophils # (Manual) PT INR D-Dimer ABG pH ABG pO2 ABG HCO3 ABG O2 Saturation ABG Base Excess ABG Hemoglobin Oxyhemoglobin Sodium Potassium Chloride Carbon Dioxide BUN Creatinine Glucose POC Glucose 113 H 126 H 115 H Lactic Acid Calcium Magnesium Iron TIBC Ferritin AST ALT Lactate Dehydrogenase Troponin T C-Reactive Protein Total Protein Albumin Prealbumin Cholesterol LDL Cholesterol Direct HDL Cholesterol Urine WBC (Auto) Vancomycin Trough Coronavirus (PCR) Crossmatch 08/10/19 08/11/19 08/12/19 Unknown 18:10 03:30 WBC 14.4 H RBC 2.58 L Hgb 7.4 L Hct 22.1 L MCV MCH MCHC RDW 17.4 H Plt Count 786 H Lymph % (Auto) [place] % (Auto) Lymph # [place] # Baso # Seg Neutrophils % Seg Neuts % (Manual) Lymphocytes % (Manual) Monocytes % (Manual) Basophils % (Manual) Nucleated RBC % Seg Neutrophils # Seg Neutrophils # Man Lymphocytes # (Manual) Monocytes # (Manual) Eosinophils # (Manual) Basophils # (Manual) PT INR D-Dimer ABG pH ABG pO2 ABG HCO3 ABG O2 Saturation ABG Base Excess ABG Hemoglobin Oxyhemoglobin Sodium Potassium Chloride Carbon Dioxide BUN Creatinine Glucose POC Glucose 106 H Lactic Acid Calcium Magnesium Iron TIBC Ferritin AST ALT Lactate Dehydrogenase Troponin T C-Reactive Protein Total Protein Albumin Prealbumin Cholesterol LDL Cholesterol Direct HDL Cholesterol Urine WBC (Auto) Vancomycin Trough Coronavirus (PCR) Positive A Crossmatch 08/12/19 08/12/19 08/13/19 03:30 12:08 05:25 WBC RBC Hgb Hct MCV MCH MCHC RDW Plt Count Lymph % (Auto) [place] % (Auto) Lymph # [place] # Baso # Seg Neutrophils % Seg Neuts % (Manual) Lymphocytes % (Manual) Monocytes % (Manual) Basophils % (Manual) Nucleated RBC % Seg Neutrophils # Seg Neutrophils # Man Lymphocytes # (Manual) Monocytes # (Manual) Eosinophils # (Manual) Basophils # (Manual) PT INR D-Dimer ABG pH ABG pO2 ABG HCO3 ABG O2 Saturation ABG Base Excess ABG Hemoglobin Oxyhemoglobin Sodium Potassium Chloride Carbon Dioxide BUN 7 L Creatinine 0.3 L Glucose 117 H POC Glucose 112 H 126 H Lactic Acid Calcium 7.8 L Magnesium Iron TIBC Ferritin AST ALT Lactate Dehydrogenase Troponin T C-Reactive Protein Total Protein Albumin Prealbumin Cholesterol LDL Cholesterol Direct HDL Cholesterol Urine WBC (Auto) Vancomycin Trough Coronavirus (PCR) Crossmatch 08/13/19 08/13/19 08/13/19 11:36 17:10 19:06 WBC RBC Hgb Hct MCV MCH MCHC RDW Plt Count Lymph % (Auto) [place] % (Auto) Lymph # [place] # Baso # Seg Neutrophils % Seg Neuts % (Manual) Lymphocytes % (Manual) Monocytes % (Manual) Basophils % (Manual) Nucleated RBC % Seg Neutrophils # Seg Neutrophils # Man Lymphocytes # (Manual) Monocytes # (Manual) Eosinophils # (Manual) Basophils # (Manual) PT INR D-Dimer ABG pH ABG pO2 105.0 H ABG HCO3 28.5 H ABG O2 Saturation ABG Base Excess 3.5 H ABG Hemoglobin 7.8 L Oxyhemoglobin Sodium Potassium Chloride Carbon Dioxide BUN Creatinine Glucose POC Glucose 143 H 107 H Lactic Acid Calcium Magnesium Iron TIBC Ferritin AST ALT Lactate Dehydrogenase Troponin T C-Reactive Protein Total Protein Albumin Prealbumin Cholesterol LDL Cholesterol Direct HDL Cholesterol Urine WBC (Auto) Vancomycin Trough Coronavirus (PCR) Crossmatch 08/13/19 08/14/19 08/14/19 23:23 05:00 05:00 WBC 14.3 H RBC 2.76 L Hgb 7.8 L Hct 23.9 L MCV MCH MCHC RDW 18.7 H Plt Count 896 H Lymph % (Auto) [place] % (Auto) Lymph # [place] # Baso # Seg Neutrophils % Seg Neuts % (Manual) Lymphocytes % (Manual) Monocytes % (Manual) Basophils % (Manual) Nucleated RBC % Seg Neutrophils # Seg Neutrophils # Man Lymphocytes # (Manual) Monocytes # (Manual) Eosinophils # (Manual) Basophils # (Manual) PT INR D-Dimer ABG pH ABG pO2 ABG HCO3 ABG O2 Saturation ABG Base Excess ABG Hemoglobin Oxyhemoglobin Sodium Potassium Chloride Carbon Dioxide BUN 6 L Creatinine 0.3 L Glucose POC Glucose 125 H Lactic Acid Calcium 8.2 L Magnesium Iron TIBC Ferritin AST ALT Lactate Dehydrogenase Troponin T C-Reactive Protein Total Protein Albumin Prealbumin Cholesterol LDL Cholesterol Direct HDL Cholesterol Urine WBC (Auto) Vancomycin Trough Coronavirus (PCR) Crossmatch 08/14/19 08/15/19 08/15/19 05:07 00:25 05:42 WBC RBC Hgb Hct MCV MCH MCHC RDW Plt Count Lymph % (Auto) [place] % (Auto) Lymph # [place] # Baso # Seg Neutrophils % Seg Neuts % (Manual) Lymphocytes % (Manual) Monocytes % (Manual) Basophils % (Manual) Nucleated RBC % Seg Neutrophils # Seg Neutrophils # Man Lymphocytes # (Manual) Monocytes # (Manual) Eosinophils # (Manual) Basophils # (Manual) PT INR D-Dimer ABG pH ABG pO2 ABG HCO3 ABG O2 Saturation ABG Base Excess ABG Hemoglobin Oxyhemoglobin Sodium Potassium Chloride Carbon Dioxide BUN Creatinine Glucose POC Glucose 128 H 117 H 115 H Lactic Acid Calcium Magnesium Iron TIBC Ferritin AST ALT Lactate Dehydrogenase Troponin T C-Reactive Protein Total Protein Albumin Prealbumin Cholesterol LDL Cholesterol Direct HDL Cholesterol Urine WBC (Auto) Vancomycin Trough Coronavirus (PCR) Crossmatch 08/15/19 08/15/19 08/15/19 06:10 06:10 06:10 WBC 11.6 H RBC 2.68 L Hgb 7.7 L Hct 23.3 L MCV MCH MCHC RDW 19.2 H Plt Count 885 H Lymph % (Auto) [place] % (Auto) Lymph # [place] # Baso # Seg Neutrophils % Seg Neuts % (Manual) Lymphocytes % (Manual) Monocytes % (Manual) Basophils % (Manual) Nucleated RBC % Seg Neutrophils # Seg Neutrophils # Man Lymphocytes # (Manual) Monocytes # (Manual) Eosinophils # (Manual) Basophils # (Manual) PT INR D-Dimer ABG pH ABG pO2 ABG HCO3 ABG O2 Saturation ABG Base Excess ABG Hemoglobin Oxyhemoglobin Sodium Potassium Chloride Carbon Dioxide BUN 6 L Creatinine 0.3 L Glucose 107 H POC Glucose Lactic Acid Calcium 8.2 L Magnesium 1.50 L Iron TIBC Ferritin AST ALT Lactate Dehydrogenase Troponin T C-Reactive Protein Total Protein Albumin Prealbumin Cholesterol LDL Cholesterol Direct HDL Cholesterol Urine WBC (Auto) Vancomycin Trough Coronavirus (PCR) Crossmatch 08/15/19 08/16/19 08/16/19 12:12 00:05 05:00 WBC 13.3 H RBC 2.87 L Hgb 8.1 L Hct 24.9 L MCV MCH MCHC RDW 18.7 H Plt Count 962 H Lymph % (Auto) [place] % (Auto) Lymph # [place] # Baso # Seg Neutrophils % Seg Neuts % (Manual) Lymphocytes % (Manual) Monocytes % (Manual) Basophils % (Manual) Nucleated RBC % Seg Neutrophils # Seg Neutrophils # Man Lymphocytes # (Manual) Monocytes # (Manual) Eosinophils # (Manual) Basophils # (Manual) PT INR D-Dimer ABG pH ABG pO2 ABG HCO3 ABG O2 Saturation ABG Base Excess ABG Hemoglobin Oxyhemoglobin Sodium Potassium Chloride Carbon Dioxide BUN Creatinine Glucose POC Glucose 112 H 111 H Lactic Acid Calcium Magnesium Iron TIBC Ferritin AST ALT Lactate Dehydrogenase Troponin T C-Reactive Protein Total Protein Albumin Prealbumin Cholesterol LDL Cholesterol Direct HDL Cholesterol Urine WBC (Auto) Vancomycin Trough Coronavirus (PCR) Crossmatch 08/16/19 08/16/19 08/16/19 05:00 05:00 23:35 WBC RBC Hgb Hct MCV MCH MCHC RDW Plt Count Lymph % (Auto) [place] % (Auto) Lymph # [place] # Baso # Seg Neutrophils % Seg Neuts % (Manual) Lymphocytes % (Manual) Monocytes % (Manual) Basophils % (Manual) Nucleated RBC % Seg Neutrophils # Seg Neutrophils # Man Lymphocytes # (Manual) Monocytes # (Manual) Eosinophils # (Manual) Basophils # (Manual) PT INR D-Dimer ABG pH ABG pO2 ABG HCO3 ABG O2 Saturation ABG Base Excess ABG Hemoglobin Oxyhemoglobin Sodium 135 L Potassium Chloride Carbon Dioxide BUN 6 L Creatinine 0.3 L Glucose POC Glucose 108 H Lactic Acid Calcium 8.2 L Magnesium Iron TIBC Ferritin AST ALT Lactate Dehydrogenase Troponin T C-Reactive Protein 2.70 H Total Protein Albumin 2.1 L Prealbumin Cholesterol LDL Cholesterol Direct HDL Cholesterol Urine WBC (Auto) Vancomycin Trough Coronavirus (PCR) Crossmatch 08/17/19 08/17/19 08/17/19 05:15 20:20 23:42 WBC RBC Hgb Hct MCV MCH MCHC RDW Plt Count Lymph % (Auto) [place] % (Auto) Lymph # [place] # Baso # Seg Neutrophils % Seg Neuts % (Manual) Lymphocytes % (Manual) Monocytes % (Manual) Basophils % (Manual) Nucleated RBC % Seg Neutrophils # Seg Neutrophils # Man Lymphocytes # (Manual) Monocytes # (Manual) Eosinophils # (Manual) Basophils # (Manual) PT INR D-Dimer ABG pH ABG pO2 ABG HCO3 27.8 H ABG O2 Saturation ABG Base Excess ABG Hemoglobin 11.4 L Oxyhemoglobin 94.6 L Sodium Potassium Chloride Carbon Dioxide BUN Creatinine Glucose POC Glucose 138 H 132 H Lactic Acid Calcium Magnesium Iron TIBC Ferritin AST ALT Lactate Dehydrogenase Troponin T C-Reactive Protein Total Protein Albumin Prealbumin Cholesterol LDL Cholesterol Direct HDL Cholesterol Urine WBC (Auto) Vancomycin Trough Coronavirus (PCR) Crossmatch 08/18/19 08/18/19 08/18/19 06:00 06:00 12:02 WBC 19.7 H RBC 3.30 L Hgb 9.3 L Hct 28.5 L MCV MCH MCHC RDW 18.9 H Plt Count 923 H Lymph % (Auto) [place] % (Auto) Lymph # [place] # Baso # Seg Neutrophils % Seg Neuts % (Manual) Lymphocytes % (Manual) Monocytes % (Manual) Basophils % (Manual) Nucleated RBC % Seg Neutrophils # Seg Neutrophils # Man Lymphocytes # (Manual) Monocytes # (Manual) Eosinophils # (Manual) Basophils # (Manual) PT INR D-Dimer ABG pH ABG pO2 ABG HCO3 ABG O2 Saturation ABG Base Excess ABG Hemoglobin Oxyhemoglobin Sodium 136 L Potassium Chloride Carbon Dioxide BUN Creatinine 0.4 L Glucose 71 L POC Glucose 123 H Lactic Acid Calcium Magnesium Iron TIBC Ferritin AST ALT Lactate Dehydrogenase Troponin T C-Reactive Protein Total Protein Albumin Prealbumin Cholesterol LDL Cholesterol Direct HDL Cholesterol Urine WBC (Auto) Vancomycin Trough Coronavirus (PCR) Crossmatch 08/18/19 08/18/19 08/19/19 18:23 23:16 04:57 WBC RBC Hgb Hct MCV MCH MCHC RDW Plt Count Lymph % (Auto) [place] % (Auto) Lymph # [place] # Baso # Seg Neutrophils % Seg Neuts % (Manual) Lymphocytes % (Manual) Monocytes % (Manual) Basophils % (Manual) Nucleated RBC % Seg Neutrophils # Seg Neutrophils # Man Lymphocytes # (Manual) Monocytes # (Manual) Eosinophils # (Manual) Basophils # (Manual) PT INR D-Dimer ABG pH ABG pO2 ABG HCO3 ABG O2 Saturation ABG Base Excess ABG Hemoglobin Oxyhemoglobin Sodium Potassium Chloride Carbon Dioxide BUN Creatinine Glucose POC Glucose 140 H 159 H 134 H Lactic Acid Calcium Magnesium Iron TIBC Ferritin AST ALT Lactate Dehydrogenase Troponin T C-Reactive Protein Total Protein Albumin Prealbumin Cholesterol LDL Cholesterol Direct HDL Cholesterol Urine WBC (Auto) Vancomycin Trough Coronavirus (PCR) Crossmatch 08/19/19 08/19/19 08/19/19 07:44 08:17 18:15 WBC 30.5 H RBC 2.87 L Hgb 7.9 L Hct 24.5 L MCV MCH MCHC RDW 18.8 H Plt Count 772 H Lymph % (Auto) [place] % (Auto) Lymph # [place] # Baso # Seg Neutrophils % Seg Neuts % (Manual) 89.0 H Lymphocytes % (Manual) 4.0 L Monocytes % (Manual) Basophils % (Manual) 2.0 H Nucleated RBC % Seg Neutrophils # Seg Neutrophils # Man 27.1 H Lymphocytes # (Manual) Monocytes # (Manual) 0.9 H Eosinophils # (Manual) 0.6 H Basophils # (Manual) 0.6 H PT INR D-Dimer ABG pH ABG pO2 ABG HCO3 ABG O2 Saturation ABG Base Excess ABG Hemoglobin Oxyhemoglobin Sodium 136 L Potassium Chloride Carbon Dioxide BUN Creatinine 0.3 L Glucose POC Glucose 106 H Lactic Acid Calcium 8.2 L Magnesium Iron TIBC Ferritin AST ALT Lactate Dehydrogenase Troponin T C-Reactive Protein Total Protein Albumin Prealbumin Cholesterol LDL Cholesterol Direct HDL Cholesterol Urine WBC (Auto) Vancomycin Trough Coronavirus (PCR) Crossmatch 08/19/19 08/20/19 08/20/19 23:46 06:20 18:34 WBC RBC Hgb Hct MCV MCH MCHC RDW Plt Count Lymph % (Auto) [place] % (Auto) Lymph # [place] # Baso # Seg Neutrophils % Seg Neuts % (Manual) Lymphocytes % (Manual) Monocytes % (Manual) Basophils % (Manual) Nucleated RBC % Seg Neutrophils # Seg Neutrophils # Man Lymphocytes # (Manual) Monocytes # (Manual) Eosinophils # (Manual) Basophils # (Manual) PT INR D-Dimer ABG pH ABG pO2 ABG HCO3 ABG O2 Saturation ABG Base Excess ABG Hemoglobin Oxyhemoglobin Sodium Potassium Chloride Carbon Dioxide BUN Creatinine Glucose POC Glucose 144 H 115 H 125 H Lactic Acid Calcium Magnesium Iron TIBC Ferritin AST ALT Lactate Dehydrogenase Troponin T C-Reactive Protein Total Protein Albumin Prealbumin Cholesterol LDL Cholesterol Direct HDL Cholesterol Urine WBC (Auto) Vancomycin Trough Coronavirus (PCR) Crossmatch 08/20/19 08/20/19 08/21/19 Unknown Unknown 11:56 WBC 18.7 H RBC 2.70 L Hgb 7.6 L Hct 23.1 L MCV MCH MCHC RDW 18.9 H Plt Count 690 H Lymph % (Auto) [place] % (Auto) Lymph # [place] # Baso # Seg Neutrophils % Seg Neuts % (Manual) Lymphocytes % (Manual) Monocytes % (Manual) Basophils % (Manual) Nucleated RBC % Seg Neutrophils # Seg Neutrophils # Man Lymphocytes # (Manual) Monocytes # (Manual) Eosinophils # (Manual) Basophils # (Manual) PT INR D-Dimer ABG pH ABG pO2 ABG HCO3 ABG O2 Saturation ABG Base Excess ABG Hemoglobin Oxyhemoglobin Sodium 134 L Potassium Chloride 97.9 L Carbon Dioxide BUN Creatinine 0.3 L Glucose 115 H POC Glucose 116 H Lactic Acid Calcium 8.2 L Magnesium Iron TIBC Ferritin AST ALT Lactate Dehydrogenase Troponin T C-Reactive Protein Total Protein Albumin Prealbumin Cholesterol LDL Cholesterol Direct HDL Cholesterol Urine WBC (Auto) Vancomycin Trough Coronavirus (PCR) Crossmatch 08/21/19 08/22/19 08/22/19 18:14 00:31 05:53 WBC RBC Hgb Hct MCV MCH MCHC RDW Plt Count Lymph % (Auto) [place] % (Auto) Lymph # [place] # Baso # Seg Neutrophils % Seg Neuts % (Manual) Lymphocytes % (Manual) Monocytes % (Manual) Basophils % (Manual) Nucleated RBC % Seg Neutrophils # Seg Neutrophils # Man Lymphocytes # (Manual) Monocytes # (Manual) Eosinophils # (Manual) Basophils # (Manual) PT INR D-Dimer ABG pH ABG pO2 ABG HCO3 ABG O2 Saturation ABG Base Excess ABG Hemoglobin Oxyhemoglobin Sodium Potassium Chloride Carbon Dioxide BUN Creatinine Glucose POC Glucose 113 H 106 H 109 H Lactic Acid Calcium Magnesium Iron TIBC Ferritin AST ALT Lactate Dehydrogenase Troponin T C-Reactive Protein Total Protein Albumin Prealbumin Cholesterol LDL Cholesterol Direct HDL Cholesterol Urine WBC (Auto) Vancomycin Trough Coronavirus (PCR) Crossmatch 08/22/19 08/23/19 08/23/19 18:35 00:18 06:00 WBC 12.3 H RBC 2.92 L Hgb 8.0 L Hct 24.6 L MCV MCH MCHC RDW 18.5 H Plt Count 661 H Lymph % (Auto) 11.7 L [place] % (Auto) 9.2 H Lymph # [place] # 1.1 H Baso # Seg Neutrophils % 75.6 H Seg Neuts % (Manual) Lymphocytes % (Manual) Monocytes % (Manual) Basophils % (Manual) Nucleated RBC % Seg Neutrophils # 9.3 H Seg Neutrophils # Man Lymphocytes # (Manual) Monocytes # (Manual) Eosinophils # (Manual) Basophils # (Manual) PT INR D-Dimer ABG pH ABG pO2 ABG HCO3 ABG O2 Saturation ABG Base Excess ABG Hemoglobin Oxyhemoglobin Sodium Potassium Chloride Carbon Dioxide BUN Creatinine Glucose POC Glucose 130 H 124 H Lactic Acid Calcium Magnesium Iron TIBC Ferritin AST ALT Lactate Dehydrogenase Troponin T C-Reactive Protein Total Protein Albumin Prealbumin Cholesterol LDL Cholesterol Direct HDL Cholesterol Urine WBC (Auto) Vancomycin Trough Coronavirus (PCR) Crossmatch 08/23/19 08/23/19 08/24/19 06:09 17:46 00:04 WBC RBC Hgb Hct MCV MCH MCHC RDW Plt Count Lymph % (Auto) [place] % (Auto) Lymph # [place] # Baso # Seg Neutrophils % Seg Neuts % (Manual) Lymphocytes % (Manual) Monocytes % (Manual) Basophils % (Manual) Nucleated RBC % Seg Neutrophils # Seg Neutrophils # Man Lymphocytes # (Manual) Monocytes # (Manual) Eosinophils # (Manual) Basophils # (Manual) PT INR D-Dimer ABG pH ABG pO2 ABG HCO3 ABG O2 Saturation ABG Base Excess ABG Hemoglobin Oxyhemoglobin Sodium Potassium Chloride Carbon Dioxide BUN Creatinine Glucose POC Glucose 117 H 125 H 113 H Lactic Acid Calcium Magnesium Iron TIBC Ferritin AST ALT Lactate Dehydrogenase Troponin T C-Reactive Protein Total Protein Albumin Prealbumin Cholesterol LDL Cholesterol Direct HDL Cholesterol Urine WBC (Auto) Vancomycin Trough Coronavirus (PCR) Crossmatch 08/24/19 08/24/19 08/24/19 05:34 12:28 17:32 WBC RBC Hgb Hct MCV MCH MCHC RDW Plt Count Lymph % (Auto) [place] % (Auto) Lymph # [place] # Baso # Seg Neutrophils % Seg Neuts % (Manual) Lymphocytes % (Manual) Monocytes % (Manual) Basophils % (Manual) Nucleated RBC % Seg Neutrophils # Seg Neutrophils # Man Lymphocytes # (Manual) Monocytes # (Manual) Eosinophils # (Manual) Basophils # (Manual) PT INR D-Dimer ABG pH ABG pO2 ABG HCO3 ABG O2 Saturation ABG Base Excess ABG Hemoglobin Oxyhemoglobin Sodium Potassium Chloride Carbon Dioxide BUN Creatinine Glucose POC Glucose 128 H 127 H 116 H Lactic Acid Calcium Magnesium Iron TIBC Ferritin AST ALT Lactate Dehydrogenase Troponin T C-Reactive Protein Total Protein Albumin Prealbumin Cholesterol LDL Cholesterol Direct HDL Cholesterol Urine WBC (Auto) Vancomycin Trough Coronavirus (PCR) Crossmatch 08/24/19 08/25/19 08/25/19 23:41 05:37 12:30 WBC RBC Hgb Hct MCV MCH MCHC RDW Plt Count Lymph % (Auto) [place] % (Auto) Lymph # [place] # Baso # Seg Neutrophils % Seg Neuts % (Manual) Lymphocytes % (Manual) Monocytes % (Manual) Basophils % (Manual) Nucleated RBC % Seg Neutrophils # Seg Neutrophils # Man Lymphocytes # (Manual) Monocytes # (Manual) Eosinophils # (Manual) Basophils # (Manual) PT INR D-Dimer ABG pH ABG pO2 ABG HCO3 ABG O2 Saturation ABG Base Excess ABG Hemoglobin Oxyhemoglobin Sodium Potassium Chloride Carbon Dioxide BUN Creatinine Glucose POC Glucose 107 H 129 H 110 H Lactic Acid Calcium Magnesium Iron TIBC Ferritin AST ALT Lactate Dehydrogenase Troponin T C-Reactive Protein Total Protein Albumin Prealbumin Cholesterol LDL Cholesterol Direct HDL Cholesterol Urine WBC (Auto) Vancomycin Trough Coronavirus (PCR) Crossmatch 08/25/19 08/25/19 08/26/19 17:49 23:55 05:35 WBC RBC Hgb Hct MCV MCH MCHC RDW Plt Count Lymph % (Auto) [place] % (Auto) Lymph # [place] # Baso # Seg Neutrophils % Seg Neuts % (Manual) Lymphocytes % (Manual) Monocytes % (Manual) Basophils % (Manual) Nucleated RBC % Seg Neutrophils # Seg Neutrophils # Man Lymphocytes # (Manual) Monocytes # (Manual) Eosinophils # (Manual) Basophils # (Manual) PT INR D-Dimer ABG pH ABG pO2 ABG HCO3 ABG O2 Saturation ABG Base Excess ABG Hemoglobin Oxyhemoglobin Sodium Potassium Chloride Carbon Dioxide BUN Creatinine Glucose POC Glucose 107 H 137 H 117 H Lactic Acid Calcium Magnesium Iron TIBC Ferritin AST ALT Lactate Dehydrogenase Troponin T C-Reactive Protein Total Protein Albumin Prealbumin Cholesterol LDL Cholesterol Direct HDL Cholesterol Urine WBC (Auto) Vancomycin Trough Coronavirus (PCR) Crossmatch 08/27/19 08/27/19 08/27/19 00:59 06:01 07:21 WBC 11.6 H RBC 3.15 L Hgb 8.3 L Hct 26.1 L MCV 83 L MCH 26 L MCHC RDW 18.6 H Plt Count 743 H Lymph % (Auto) 11.8 L [place] % (Auto) 8.8 H Lymph # [place] # 1.0 H Baso # Seg Neutrophils % 75.3 H Seg Neuts % (Manual) Lymphocytes % (Manual) Monocytes % (Manual) Basophils % (Manual) Nucleated RBC % Seg Neutrophils # 8.7 H Seg Neutrophils # Man Lymphocytes # (Manual) Monocytes # (Manual) Eosinophils # (Manual) Basophils # (Manual) PT INR D-Dimer ABG pH ABG pO2 ABG HCO3 ABG O2 Saturation ABG Base Excess ABG Hemoglobin Oxyhemoglobin Sodium Potassium Chloride Carbon Dioxide BUN Creatinine Glucose POC Glucose 126 H 134 H Lactic Acid Calcium Magnesium Iron TIBC Ferritin AST ALT Lactate Dehydrogenase Troponin T C-Reactive Protein Total Protein Albumin Prealbumin Cholesterol LDL Cholesterol Direct HDL Cholesterol Urine WBC (Auto) Vancomycin Trough Coronavirus (PCR) Crossmatch 08/27/19 08/27/19 08/28/19 07:21 18:05 00:37 WBC RBC Hgb Hct MCV MCH MCHC RDW Plt Count Lymph % (Auto) [place] % (Auto) Lymph # [place] # Baso # Seg Neutrophils % Seg Neuts % (Manual) Lymphocytes % (Manual) Monocytes % (Manual) Basophils % (Manual) Nucleated RBC % Seg Neutrophils # Seg Neutrophils # Man Lymphocytes # (Manual) Monocytes # (Manual) Eosinophils # (Manual) Basophils # (Manual) PT INR D-Dimer ABG pH ABG pO2 ABG HCO3 ABG O2 Saturation ABG Base Excess ABG Hemoglobin Oxyhemoglobin Sodium 132 L Potassium 5.1 H Chloride 97.6 L Carbon Dioxide BUN Creatinine 0.3 L Glucose 119 H POC Glucose 127 H 106 H Lactic Acid Calcium Magnesium Iron TIBC Ferritin AST ALT Lactate Dehydrogenase Troponin T C-Reactive Protein Total Protein Albumin Prealbumin Cholesterol LDL Cholesterol Direct HDL Cholesterol Urine WBC (Auto) Vancomycin Trough Coronavirus (PCR) Crossmatch 08/28/19 08/29/19 08/29/19 18:14 00:01 12:16 WBC RBC Hgb Hct MCV MCH MCHC RDW Plt Count Lymph % (Auto) [place] % (Auto) Lymph # [place] # Baso # Seg Neutrophils % Seg Neuts % (Manual) Lymphocytes % (Manual) Monocytes % (Manual) Basophils % (Manual) Nucleated RBC % Seg Neutrophils # Seg Neutrophils # Man Lymphocytes # (Manual) Monocytes # (Manual) Eosinophils # (Manual) Basophils # (Manual) PT INR D-Dimer ABG pH ABG pO2 ABG HCO3 ABG O2 Saturation ABG Base Excess ABG Hemoglobin Oxyhemoglobin Sodium Potassium Chloride Carbon Dioxide BUN Creatinine Glucose POC Glucose 115 H 146 H 107 H Lactic Acid Calcium Magnesium Iron TIBC Ferritin AST ALT Lactate Dehydrogenase Troponin T C-Reactive Protein Total Protein Albumin Prealbumin Cholesterol LDL Cholesterol Direct HDL Cholesterol Urine WBC (Auto) Vancomycin Trough Coronavirus (PCR) Crossmatch 08/30/19 08/30/19 08/30/19 05:10 05:10 05:25 WBC 12.3 H RBC 3.01 L Hgb 8.0 L Hct 25.1 L MCV MCH 27 L MCHC RDW 19.3 H Plt Count 709 H Lymph % (Auto) 8.9 L [place] % (Auto) Lymph # 1.1 L [place] # Baso # Seg Neutrophils % 82.7 H Seg Neuts % (Manual) Lymphocytes % (Manual) Monocytes % (Manual) Basophils % (Manual) Nucleated RBC % Seg Neutrophils # 10.1 H Seg Neutrophils # Man Lymphocytes # (Manual) Monocytes # (Manual) Eosinophils # (Manual) Basophils # (Manual) PT INR D-Dimer ABG pH ABG pO2 ABG HCO3 ABG O2 Saturation ABG Base Excess ABG Hemoglobin Oxyhemoglobin Sodium 133 L Potassium Chloride 97.8 L Carbon Dioxide BUN Creatinine 0.3 L Glucose POC Glucose 106 H Lactic Acid Calcium Magnesium 1.50 L Iron TIBC Ferritin AST ALT Lactate Dehydrogenase Troponin T C-Reactive Protein Total Protein Albumin 2.4 L Prealbumin Cholesterol LDL Cholesterol Direct HDL Cholesterol Urine WBC (Auto) Vancomycin Trough Coronavirus (PCR) Crossmatch 08/30/19 08/30/19 08/31/19 18:26 23:48 05:32 WBC RBC Hgb Hct MCV MCH MCHC RDW Plt Count Lymph % (Auto) [place] % (Auto) Lymph # [place] # Baso # Seg Neutrophils % Seg Neuts % (Manual) Lymphocytes % (Manual) Monocytes % (Manual) Basophils % (Manual) Nucleated RBC % Seg Neutrophils # Seg Neutrophils # Man Lymphocytes # (Manual) Monocytes # (Manual) Eosinophils # (Manual) Basophils # (Manual) PT INR D-Dimer ABG pH ABG pO2 ABG HCO3 ABG O2 Saturation ABG Base Excess ABG Hemoglobin Oxyhemoglobin Sodium Potassium Chloride Carbon Dioxide BUN Creatinine Glucose POC Glucose 139 H 113 H 115 H Lactic Acid Calcium Magnesium Iron TIBC Ferritin AST ALT Lactate Dehydrogenase Troponin T C-Reactive Protein Total Protein Albumin Prealbumin Cholesterol LDL Cholesterol Direct HDL Cholesterol Urine WBC (Auto) Vancomycin Trough Coronavirus (PCR) Crossmatch Allied health notes reviewed: nursing
[2019-08-31] MEDS ORDERED: SODIUM CHLORIDE 0.9% 1000 ML 1,000 ML IV ONE (12:45)
--- NOTE | 2019-08-31 13:13 | Anesthesia Day of Surgery ---
Anesthesia Day of Surgery - Day of Surgery Patient Examined: Yes Patient H&P Reviewed: Yes Patient is NPO: Yes
--- NOTE | 2019-08-31 13:13 | Anesthesia Consultation ---
Anesthesia Consult and Med Hx Date of service: 08/31/19 - Airway Intubation Access Assessment: Probably Good (oETT in situ) - Pulmonary Exam CTA: No (on ventilator) - Cardiac Exam Cardiac Exam: RRR - Pre-Operative Health Status ASA Pre-Surgery Classification: ASA4 Proposed Anesthetic Plan: General - Pulmonary Hx Smoking: Yes Hx Respiratory Symptoms: Yes (respiratory failure with vent dependence) Hx Pneumonia: Yes (2/2 COVID-19 (has since tested negative)) - Cardiovascular System Hx Hypertension: Yes Hx Heart Attack/AMI: Yes (s/p cardiac arrest this admission) Hx Percutaneous Transluminal Coronary Angioplasty (PTCA): No - Central Nervous System Hx Seizures: Yes CVA: Yes Hx Psychiatric Problems: Yes (dementia, schizophrenia) - Endocrine Hx Renal Disease: No Hx Liver Disease: No Hx Insulin Dependent Diabetes: No Hx Non-Insulin Dependent Diabetes: No Hx Thyroid Disease: No - Other Systems Hx Alcohol Use: Yes (hx EtOH abuse) Hx Obesity: No - Additional Comments Anesthesia Medical History Comments: Scheduled for bedside trach/PEG
--- NOTE | 2019-08-31 14:11 | Procedure Note ---
Date of procedure: 09/01/19 Pre-op diagnosis: respiratory failure Procedure: Bronchoscopy Consent was on the chart. Timeout was called. After adequate sedation was establish, flexible bronchoscope was introduced via the ETT. The airway was clear. ETT was intially at 23cm. We pulled it back to 18cm. Eventually, we ended up pulling it back to 17cm. Under bronchoscopic guidance, Dr. Blandon performed the tracheostomy. Introducer needle, dilator, guidewire, larger dilators, and tracheostomy tube were all directly observed during the case. After the tracheostomy tube was inserted, bronchoscope was introduced via the trach tube and position was confirmed. There was no bleeding. The tip of the tube was at least 3 cm above the aureliano. Pt tolerated the procedure well. There were no complications PEG placement Co-Surgeons Barber Beard Anesth MAC (administered by anesthesia provider) EBL min Implant 20Fr pull PEG tube Procedure - timeout had already been performed. Consent was on the chart. Bite-block was placed. Endoscope was inserted. We intubated the esophagus. Scope was passed down to the stomach. Stomach was insufflated. We identified the area of transillumination in the body of stomach. Dr. Blandon then prepped and draped that area. Local anesthetic was administered. Small incision was made. Introducer needle was passed into the stomach. Guidewire was passed which was grabbed with the snare and pulled back up to the mouth. PEG tube was attached. Dr. Blandon pulled the PEG tube back into the stomach. Endoscope was reinserted. The button was visualized. There was no evidence of bleeding. There did not appear to be any excess pressure on the stomach. The rest of the stomach was inspected. First and second portions of duodenum were inspected. Esophagus was evaluated as the scope was being pulled out. No abnormalities were found. Patient tolerated the procedure well. There were no complications. The PEG collar was at 3 cm. Patient was in stable condition at the end of the case in ICU. Findings: normal anatomy Implants: 20Fr PEG tube Anesthesia: MAC Surgeon: DORA BEARD (Barber co-surgeon for PEG) Estimated blood loss: minimal Pathology: none Condition: stable Disposition: ICU
--- NOTE | 2019-08-31 14:18 | Procedure Note ---
Date of procedure: 08/31/19 Pre-op diagnosis: VDRF Post-op diagnosis: same Procedure: Tracheostomy tube placement Findings: Percutaneous Tracheostomy placement The patient was identified in the hospital bed in the ICU. Consent was verified on the chart timeout was performed. The neck was prepped and draped in usual sterile fashion. Anesthesia was administered. Dr. Quiles performed fiberoptic bronchoscopy throughout the entire procedure (see separate procedure note). 1% lidocaine was infiltrated into the skin and subcutaneous tissue approximately 2 fingerbreadths above the aureliano. A 2 cm incision was made in a horizontal fashion using a 15 blade. Using a hemostat the soft tissues were bluntly dissected until the trachea was encountered. The introducer needle was then used to enter the trachea under direct visualization, through which the wire was passed down the trachea towards the aureliano. Introducer needle was then removed. The trachea was then serially dilated, after which a 8 Turkmen Shiley tracheostomy tube was inserted. The balloon was inflated, patient placed back on ventilator, and tidal volumes assessed which were satisfactory. The bronchoscope was then placed this through the tracheostomy and showed good positioning of the tracheostomy above the aureliano and no bleeding. The tracheostomy was sutured into place using 2-0 Prolene sutures. A drain sponge was placed between the skin and tracheostomy. The tracheostomy was secured to the patient's neck using a tracheostomy strap. A post op chest x-ray showed the tracheostomy in good positioning. The patient tolerated the procedure well. All sharps were disposed of appropriately. Implants: 8F shiley Anesthesia: JOE, local Surgeon: BRYAN RAINES Estimated blood loss: minimal Pathology: none Condition: stable Disposition: no change
--- NOTE | 2019-08-31 14:44 | Progress Note ---
Assessment and Plan /Acute respiratory Failure with Hypoxia - Due to bilateral PNA with COVID 19 infection. -pulmonary critical care following -Continue scheduled labs, mechanical ventilation, supportive care as needed - Awaiting trach and PEG, scheduled for 08/31/2019 /COVid positive b/l pneumonia with severe sepsis -Possible abscess, no need for drianage per ID/pULM -Received Plaquenil and cefepime, -Currently patient is on Levaquin per ID 08/20/2019; hernandez PCR negative 08/10/2019; hernandez PCR positive 07/29/2019; hernandez PCR positive 07/04/2019; hernandez PCR positive /Adynamic ileus; on abdominal x-ray, -consulted surgery and recommended to resume tube feeding -Trach and PEG scheduled for 08/31/2019 /Vomitings: Probably secondary to high residuals -IV Zofran as needed, lowered the rate for tube feeding -Discussed with patient's nurse Acute metabolic encephalopathy -Likely due to respiratory arrest and severe sepsis with underlying advanced dementia - Hold Hyoscamine. monitor Troponins. -CT head unremarkable Shock, likely septic: Lactic acidosis -Levophed as needed, continue IV fluid COPD with exacerbation -Likely due to COVID-19 pneumonia -Continue scheduled nebs Anemia, Microcytic -due to iron deficiency - monitor H&H, transfused one unit Pressure Ulcers - buttocks, right lateral foot area - present upon admission - wound care consulted Hyponatremia, continue IV fluid DM type 2 - Accuchecks with sliding scale insulin HTN Essential, now hypotensive -relatively low BP - on IVF. monitor Seizure D/o/CVA/immobility/BIpolar D/o/SCZ chronic medical conditions - continue meds Severe PCM, TF for now, dietary following patient is DNR- Called and verified information Guarded prognosis, patient is critically ill Awaiting trach and PEG, and LTAC placement 07/04- 08/19: please see 08/[address] arana 08/20-08/28: please see 08/[address] Leyva 08/29: Resumed care. Remains on full ventilatory support mental status still unchanged. Continue supportive care. Monitor off antibiotics per ID. Resumed TF, plan for trach and PEG tomorrow. 08/30: Plan for trach and PEG today, will continue to provide supportive care and follow clinically The high probability of a clinically significant, sudden or life threatening deterioration of the [respiratory, CVS, [employer] SAL[employer]NAGER] system(s) required my full and direct attention, intervention and personal management. The aggregate critical care time was [32] minutes. This time is in addition to time spent performing reported procedures but includes the following: [x] Data Review and interpretation [x] Patient assessment and monitoring of vital signs [x] Documentation [x] Medication orders and management Brief History: 69-year-old male with PMH of CVA with RHP, HTN, DM2, SCZ, Dementia, Alcohol use D/o, Seizure D/O, presents to the emergency department via EMS from home with progressive SOB and impending espiratory failure with an unresponsive episode. Apparently the patient was witnessed becoming unresponsive by family members. Reportedly, pt had just gotten a high dose of Hyoscamine When EMS got there, the patient was agonal breathing and had a faint pulse. No CPR was indicated per EMS. PT was intubated and received some IV fluid en route to the hospital. He was admitted for sepsis, b/l PNA, acute respiratory failure. Patient was tested positive for COVID19. Evaluated by ID , received antibiotics Plaquenil, and inflammatory markers were checked and followed. Patient continues to be hypotensive currently on Levophed, unable to wean- remains intubated on ventilatory support, critically ill, DNR status however family wants full treatment. Surgery evaluated recommend trach and PEG. need LTAC for discharge Physical exam: General appearance: Present: no acute distress, cachectic, other (On vent) - EENT Eyes: Present: PERRL, EOM intact - Neck Neck: Present: supple, normal ROM, other (ET tube and Dobbhoff in place) - Respiratory Respiratory effort: normal Respiratory: bilateral: diminished, negative: rales, rhonchi - Cardiovascular Rhythm: regular Heart Sounds: Present: S1 & S2 - Extremities Extremities: no ischemia, No edema - Abdominal General gastrointestinal: soft, non-tender, distended - Integumentary Integumentary: Present: clear, warm - Psychiatric Psychiatric: other (Intubated on vent) - Neurologic Neurologic: other (Intubated on vent) Subjective Date of service: 08/31/19 Principal diagnosis: Bilateral pneumonia, severe sepsis with septic shock, encephalopathy Interval history: Patient seen and examined. Medical records and medication list reviewed. No acute event overnight noted by the RN. Patient is now negative for COVID-19. Patient remains intubated on mechanical ventilation Discussed plan of care at bedside with patient's RN, DIONICIO. Objective - Constitutional Vitals: Vital Signs - 12hr 08/31/19 08/31/19 08/31/19 03:00 03:12 04:00 Temperature 98.9 F Pulse Rate 91 H 98 H Pulse Rate [ 101 H From Monitor] Respiratory 18 23 Rate Blood Pressure 96/50 85/48 O2 Sat by Pulse 97 98 Oximetry 08/31/19 08/31/19 08/31/19 04:39 05:00 06:00 Temperature Pulse Rate 101 H 92 H 103 H Pulse Rate [ From Monitor] Respiratory 21 15 Rate Blood Pressure 91/47 91/47 103/61 O2 Sat by Pulse 95 98 Oximetry 08/31/19 08/31/19 08/31/19 07:00 08:00 09:00 Temperature 99.4 F Pulse Rate 114 H 108 H 111 H Pulse Rate [ 107 H From Monitor] Respiratory 23 13 16 Rate Blood Pressure 117/65 113/69 102/59 O2 Sat by Pulse 97 98 Oximetry 08/31/19 08/31/19 08/31/19 09:02 10:00 11:00 Temperature Pulse Rate 110 H 90 78 Pulse Rate [ From Monitor] Respiratory 12 21 Rate Blood Pressure 102/59 91/53 119/61 O2 Sat by Pulse 99 99 Oximetry 08/31/19 08/31/19 08/31/19 11:25 12:00 13:00 Temperature Pulse Rate 79 73 74 Pulse Rate [ 75 From Monitor] Respiratory 15 18 Rate Blood Pressure 119/61 117/63 141/80 O2 Sat by Pulse 100 99 100 Oximetry - Labs CBC & Chem 7: 08/30/19 05:10 08/30/19 05:10 Labs: Abnormal lab results 08/30/19 08/30/19 08/30/19 Range/Units 05:25 18:26 23:48 POC Glucose 106 H 139 H 113 H (70-105) 08/31/19 Range/Units 05:32 POC Glucose 115 H (70-105) HEART Score - HEART Score Troponin: Troponin T 0.013 ng/mL (0.00-0.029) 07/04/19 07:05
--- NOTE | 2019-08-31 15:24 | XRay Report ---
CHEST 1 VIEW INDICATION: trach placement. COMPARISON: Abdominal radiograph 2 days prior FINDINGS: Support devices: Endotracheal tube has been exchanged for a tracheostomy. Esophagogastric tube is bee n removed. Left-sided central venous catheter is unchanged. Heart: Stable. Lungs/Pleura: No pneumothorax or significant effusion. Pulmonary opacities are stable. IMPRESSION: 1. No unexpected findings after tracheostomy. Signer Name: Clive Olguin MD Signed: 08/31/2019 3:20 PM Workstation Name: [id number]
--- NOTE | 2019-08-31 16:01 | Progress Note ---
Assessment and Plan Cultures: 07/03/2019 urine culture: No growth 07/03/2019 Tracheal aspirate: E.coli 07/29/2019 urine culture: neg 07/30/2019 blood culture: no growth tracheal asp + Pseudomonas 08/06/2019 blood culture: no growth 08/09/2019 Wound MDR Enterobacter 08/16/2019 blood culture: no growth to date 08/20/2019 COVID-19 PCR: negative A/P: 69-year-old male with CVA, hypertension, dementia, schizophrenia, alcohol use disorder was admitted to the emergency room after being brought in by EMS with progressive shortness of breath and unresponsiveness. He was noted to have agonal breathing and a faint pulse requiring CPR. It seems patient was on hospice recently, prior to admission. #Shock, likely septic: shock resolved, remains off pressors. still intermittent fever, leukocytosis worse again: bacterial pneumonia vs sacral decubitus infection. #Non-resolving pneumonia/Cavitary pneumonia: ? abscess. Sputum +Pseudomonas. CT shows RUL pneumonia with 2.4 cm cavity and LLL pneumonia with moderate left pleural effusion. No need for thoracentesis per Pulm. #Penile/scrotal and buttocks wounds: ?cellulitis #Sacral decubitus: worsening on last exam ? necrotic. Evaluated for surgery, no indications for intervention. 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 bleeding overnight s/p surgical management bedside, 08/09/2019 Wound MDR Enterobacter likely a colonizer (superficial wound cx) #UTI: per documentation initial carroll placed on 07/03, exchanged on 07/31. #Severe COVID-19 disease and pneumonia: Markers improving. Completed Plaquenil. Completed Ceftriaxone for treatment E.coli in tracheal aspirate. Repeat COVID finally negative on 08/20/2019. #Acute respiratory failure: remains on mechanical ventilation. #Multiple skin tears documented on admission #Anemia: from sacral wound bleeding Recs: Monitor off medication for now. Afebrile today. WBC Stable. Overall prognosis is extremely poor. Continue wound care Mekhi Barboza MD [facility] M: [phone] O: [phone] F: [phone] Subjective Date of service: 08/31/19 Principal diagnosis: Bilateral pneumonia, severe sepsis with septic shock, encephalopathy Interval history: Afebrile. Status post tracheostomy Objective - Exam Narrative Exam: Narrative Exam: Physical Exam (reviewed in chart due to PPE conservation) Constitutional: intubated, sedated, on the vent Head, Ears, Nose: normocephalic, atraumatic Eyes: limited due to PPE conservation strategy Neck: intubated Oral: intubated Cardiovascular: limited due to PPE conservation strategy Respiratory: limited due to PPE conservation strategy GI: limited due to PPE conservation strategy Musculoskeletal: limited due to PPE conservation strategy Skin: limited due to PPE conservation strategy. Decubitus + Hem/Lymphatic: limited due to PPE conservation strategy Psych: no agitation Neurological: sedated, intubated, on the vent, exam limited - Constitutional Vitals: Vital Signs Temp Pulse Resp BP Pulse Ox 99.4 F 70 13 139/80 100 08/31/19 08:00 08/31/19 15:00 08/31/19 15:00 08/31/19 15:00 08/31/19 15:00 Temperature -Last 24 Hours Temperature 99.4 F Temperature 98.9 F Temperature 98.8 F Temperature 98.9 F - Labs CBC & Chem 7: 08/30/19 05:10 08/30/19 05:10 Labs: Abnormal lab results 08/30/19 08/30/19 08/30/19 Range/Units 05:25 18:26 23:48 POC Glucose 106 H 139 H 113 H (70-105) 08/31/19 Range/Units 05:32 POC Glucose 115 H (70-105)
[2019-08-31] MEDS: POLYETHYLENE GLYCOL 3350 17 GM POWDER PO SCH (21:23)
[2019-09-01 04:52] LABS: ABG Base Excess 0.7 mmol/L (-2.0-3.0); ABG Methemoglobin 0.2 % (0.0-1.5); ABG Oxygen Saturation 99.6 % (95.0-99.0); ABG PCO2 32.6 mm Hg; ABG PH 7.485 pH Units (7.350-7.450)
[2019-09-01 05:04] LABS: ABG PO2 483.8 mm Hg (80.0-90.0)
--- NOTE | 2019-09-01 09:41 | Progress Note ---
Assessment and Plan 67-year-old male with ventilator dependent respiratory failure status post tracheostomy and PEG tube placement, POD 1 Plan: 1. vent management per ICU team 2. continue TF at goal - pt tolerating well 3. trach care as per protocol 4. may remove trach sutures on 09/05/19 5. DC planning to LTAC will s/o. Thank you for this consultation. Please call with any questions or concerns. Evaluation and treatment of this patient was during the time of the national and state emergency arising from COVID19 coronavirus pandemic. Treatment and procedures performed meet the current and available best practice and guidelines for patient during the COVID pandemic. Subjective Date of service: 09/01/19 Narrative: Patient seen and examined. No overnight events noted. No acute changes in condition. Objective Vital Signs - 12hr 08/31/19 08/31/19 09/01/19 22:00 23:00 00:00 Temperature 99.1 F Pulse Rate 65 68 70 Pulse Rate [ 77 From Monitor] Respiratory 16 15 13 Rate Blood Pressure 144/78 148/81 148/75 O2 Sat by Pulse 100 100 100 Oximetry O2 Sat by Pulse Oximetry [ Assessment] 09/01/19 09/01/19 09/01/19 00:19 00:37 01:00 Temperature Pulse Rate 78 79 Pulse Rate [ From Monitor] Respiratory 19 Rate Blood Pressure 129/69 127/70 O2 Sat by Pulse 100 100 Oximetry O2 Sat by Pulse 100 Oximetry [ Assessment] 09/01/19 09/01/19 09/01/19 02:00 03:00 04:00 Temperature 100 F H Pulse Rate 71 71 70 Pulse Rate [ 76 From Monitor] Respiratory 22 17 22 Rate Blood Pressure 120/64 117/68 114/67 O2 Sat by Pulse 100 100 100 Oximetry O2 Sat by Pulse Oximetry [ Assessment] 09/01/19 09/01/19 09/01/19 04:09 05:00 06:00 Temperature Pulse Rate 72 65 76 Pulse Rate [ From Monitor] Respiratory 17 17 Rate Blood Pressure 134/70 122/63 149/83 O2 Sat by Pulse 100 100 100 Oximetry O2 Sat by Pulse Oximetry [ Assessment] 09/01/19 09/01/19 07:00 08:00 Temperature 98.7 F Pulse Rate 83 85 Pulse Rate [ 73 From Monitor] Respiratory 14 22 Rate Blood Pressure 118/58 118/62 O2 Sat by Pulse 100 100 Oximetry O2 Sat by Pulse 100 Oximetry [ Assessment] - General physical appearance Narrative Exam: General: On vent. Opens eyes to tactile stimulus. ENT: Tracheostomy tube in place. The site is clean, dry, intact. No evidence of hematoma CV: S1, S2 present Respiratory: No wheezes Abdomen: Soft, nontender, nondistended. PEG tube site clean, dry, intact with bumper at 2 cm. Extremities: Contracted - Labs 08/30/19 05:10 08/30/19 05:10
[2019-09-01] MEDS: GLYCOPYRROLATE 1 MG TAB PO SCH ×3 (09:52→22:13)
[2019-09-01] MEDS: DOCUSATE SODIUM 100 MG/10 ML ORAL LIQD PO SCH ×2 (09:52→22:13)
[2019-09-01] MEDS: ASPIRIN 81 MG TAB CHEW PO SCH (09:52)
[2019-09-01] MEDS: FAMOTIDINE 20 MG TAB PO SCH ×2 (09:52→22:14)
[2019-09-01] MEDS: METOPROLOL TARTRATE 25 MG TAB PO SCH ×2 (09:53→22:14)
[2019-09-01] MEDS: levETIRAcetam 500 MG/5 ML ORAL LIQD FEEDTUBE SCH ×2 (09:53→22:13)
[2019-09-01] MEDS: SODIUM HYPOCHLORITE, DAKIN'S 1/2 STRENGTH (0.25%) 473 ML TOPICAL SOLN TP SCH ×2 (09:54→22:15)
[2019-09-01] MEDS: ENOXAPARIN 40 MG/0.4 ML INJ SUB-Q SCH (09:54)
[2019-09-01] MEDS: FOLIC ACID 1 MG TAB PO SCH (09:54)
--- NOTE | 2019-09-01 11:50 | Progress Note ---
Assessment and Plan Acute hypoxemic respiratory failure on MVS Severe sepsis with Shock. Bilateral Pneumonia. PUI coronavirus-19 infection. Acute possibly on chronic encephalopathy. Oropharyngeal dysphagia. Anemia. Decubitus ulcers Diabetes type 2. Hypertension. Leukocytosis. Anemia that is microcytic. Elevated serum transaminases. [id number] metabolic acidosis. Lactic acidosis. Severe protein-calorie malnutrition - KUB reviewed; continue scheduled Colace & Miralax - BMP reviewed; Magnesium level low; will replace - routine trach care per RT - continue low dose Reglan - no new issues otherwise, continue care as below otherwise - repeat COVID-19 negative - prn CXR's and ABG's at this point - continue care as below otherwise - continue fentanyl gtt for pain control / sedation - continue to wean supplemental oxygen for target O2 sat's > 90% acutely - continue daily SAT's and SBT assessment as tolerated - VAP bundle addressed - continue lung protective strategies - continue bronchodilators with pulmonary hygiene per RT - wean per pulmonary driven protocols otherwise - prn Levophed for target MAP > 65 mmHg - continue airborne and contact COVID-19 precautions - s/p anti-infectives and de-escalation per ID recommendations - continue wound care per WCT - sedation prn for target RASS 0 to -1 - accuchecks with glycemic control per SSI (While critically ill target blood glucose of 140-180 mg/dL; avoid hypoglycemia) - to avoid benzodiazepine's, reduce the possibility of delirium - prn analgesia per CPOT score - Maintenance of sleep-wake cycle, avoid delirium - continue enteral nutritional support at goal rate as tolerated - G.I. & VTE prophylaxis - PT/OT/ROM exercises - continue mobility protocols for pressure ulcer prophylaxis - Monitor hemodynamics closely - continue other care per attending / other consultants - discharge planning ongoing concurrently .... Re-evaluate in am & prn CONDITION: CRITICAL PROGNOSIS: GUARDED CODE STATUS: FULL CODE The high probability of a clinically significant, sudden or life-threatening deterioration of the [respiratory & cardiovascular] system(s) required my full and direct attention, intervention and personal management. The aggregate critical care time was [32] minutes without overlap. Time includes spent on; [x] Data Review and interpretation [x] Patient assessment and monitoring of vital signs [x] Documentation [x] Medication orders and management Subjective Date of service: 09/01/19 Principal diagnosis: Bilateral pneumonia, severe sepsis with septic shock, encephalopathy Interval history: Patient is seen today for: Ac hypoxemic Resp failure on MVS; Severe sepsis with Shock; Ivan. Pneumonia; PUI coronavirus-19 infection. Seen and examined at bedside; 24hour events reviewed; nursing and respiratory care staff consulted; no adverse overnight events reported to me; resting in bed ; remains on MVS; tolerating SBT; AMS is persistent; no new issues otherwise Objective Vital Signs - 12hr 09/01/19 09/01/19 09/01/19 00:00 00:19 00:37 Temperature 99.1 F Pulse Rate 70 78 Pulse Rate [ 77 From Monitor] Respiratory 13 Rate Blood Pressure 148/75 129/69 O2 Sat by Pulse 100 100 Oximetry O2 Sat by Pulse 100 Oximetry [ Assessment] 09/01/19 09/01/19 09/01/19 01:00 02:00 03:00 Temperature Pulse Rate 79 71 71 Pulse Rate [ From Monitor] Respiratory 19 22 17 Rate Blood Pressure 127/70 120/64 117/68 O2 Sat by Pulse 100 100 100 Oximetry O2 Sat by Pulse Oximetry [ Assessment] 09/01/19 09/01/19 09/01/19 04:00 04:09 05:00 Temperature 100 F H Pulse Rate 70 72 65 Pulse Rate [ 76 From Monitor] Respiratory 22 17 Rate Blood Pressure 114/67 134/70 122/63 O2 Sat by Pulse 100 100 100 Oximetry O2 Sat by Pulse Oximetry [ Assessment] 09/01/19 09/01/19 09/01/19 06:00 07:00 08:00 Temperature 98.7 F Pulse Rate 76 83 85 Pulse Rate [ 73 From Monitor] Respiratory 17 14 22 Rate Blood Pressure 149/83 118/58 118/62 O2 Sat by Pulse 100 100 100 Oximetry O2 Sat by Pulse 100 Oximetry [ Assessment] 09/01/19 09/01/19 09:53 11:41 Temperature Pulse Rate 92 H 88 Pulse Rate [ From Monitor] Respiratory Rate Blood Pressure 111/52 99/51 O2 Sat by Pulse 100 Oximetry O2 Sat by Pulse Oximetry [ Assessment] Constitutional: appears uncomfortable, other (eelderly and chronically ill l ooking AAM, normocep[krystina;ic with mildly increased respiratory effort at rest) Eyes: non-icteric ENT: oropharynx moist, other (ETT 24 cm RUTH) Neck: supple, no lymphadenopathy, no JVD Effort: mildly labored Ascultation: Bilateral: diminished breath sounds, rhonchi Percussion: Bilateral: not dull Cardiovascular: regular rate and rhythm Gastrointestinal: normoactive bowel sounds, soft, non-tender, non-distended, other (+ PEG tube with mild TF leakage) Integumentary: decubitus ulcer (sacral) Extremities: no cyanosis, no edema, pink and warm, pulses normal Neurologic: pupils equal and round, unable to assess Psychiatric: other (Unable to assess re: AMS) CBC and BMP: 08/30/19 05:10 09/01/19 14:50 ABG, PT/INR, D-dimer: ABG ABG pH 7.485 pH Units (7.350-7.450) H 09/01/19 04:33 ABG pCO2 32.6 mm Hg 09/01/19 04:33 ABG pO2 483.8 mm Hg (80.0-90.0) H 09/01/19 04:33 ABG O2 Saturation 99.6 % (95.0-99.0) H 09/01/19 04:33 PT/INR, D-dimer PT 16.0 Sec. (12.2-14.9) H 07/03/19 22:20 INR 1.26 (0.87-1.13) H 07/03/19 22:20 D-Dimer 1808.06 ng/mlDDU (0-234) H 08/07/19 10:24 Abnormal lab findings: Abnormal Labs 07/03/19 07/03/19 07/03/19 19:57 21:10 21:13 WBC RBC Hgb Hct MCV MCH MCHC RDW Plt Count Lymph % (Auto) [place] % (Auto) Lymph # [place] # Baso # Seg Neutrophils % Seg Neuts % (Manual) Lymphocytes % (Manual) Monocytes % (Manual) Basophils % (Manual) Nucleated RBC % Seg Neutrophils # Seg Neutrophils # Man Lymphocytes # (Manual) Monocytes # (Manual) Eosinophils # (Manual) Basophils # (Manual) PT INR D-Dimer ABG pH 7.238 L ABG pO2 210.8 H ABG HCO3 15.4 L ABG O2 Saturation 99.2 H ABG Base Excess -11.1 L ABG Hemoglobin 8.0 L Oxyhemoglobin Sodium 124 L Potassium Chloride 92.9 L Carbon Dioxide 10 L BUN 23 H Creatinine 0.5 L Glucose 118 H POC Glucose Lactic Acid Calcium 7.0 L Magnesium Iron TIBC Ferritin AST 70 H ALT 88 H Lactate Dehydrogenase Troponin T 0.032 H C-Reactive Protein Total Protein 5.0 L Albumin 1.8 L Prealbumin Cholesterol 47 L LDL Cholesterol Direct 25 L HDL Cholesterol 20 L Urine WBC (Auto) 12.0 H Vancomycin Trough Coronavirus (PCR) Crossmatch 07/03/19 07/03/19 07/03/19 22:20 22:20 22:20 WBC 30.5 H RBC 2.96 L Hgb 7.7 L Hct 23.9 L MCV 81 L MCH 26 L MCHC RDW 18.6 H Plt Count 459 H Lymph % (Auto) [place] % (Auto) Lymph # [place] # Baso # Seg Neutrophils % Seg Neuts % (Manual) 93.0 H Lymphocytes % (Manual) 0.5 L Monocytes % (Manual) Basophils % (Manual) Nucleated RBC % Seg Neutrophils # Seg Neutrophils # Man 28.4 H Lymphocytes # (Manual) 0.2 L Monocytes # (Manual) Eosinophils # (Manual) Basophils # (Manual) PT 16.0 H INR 1.26 H D-Dimer ABG pH ABG pO2 ABG HCO3 ABG O2 Saturation ABG Base Excess ABG Hemoglobin Oxyhemoglobin Sodium Potassium Chloride Carbon Dioxide BUN Creatinine Glucose POC Glucose Lactic Acid 6.90 H* Calcium Magnesium Iron TIBC Ferritin AST ALT Lactate Dehydrogenase Troponin T C-Reactive Protein Total Protein Albumin Prealbumin Cholesterol LDL Cholesterol Direct HDL Cholesterol Urine WBC (Auto) Vancomycin Trough Coronavirus (PCR) Crossmatch 07/03/19 07/04/19 07/04/19 23:58 05:15 07:05 WBC 17.1 H RBC 3.22 L Hgb 8.3 L Hct 25.4 L MCV 79 L MCH 26 L MCHC RDW 18.6 H Plt Count Lymph % (Auto) [place] % (Auto) Lymph # [place] # Baso # Seg Neutrophils % Seg Neuts % (Manual) 74.0 H Lymphocytes % (Manual) 0 L Monocytes % (Manual) Basophils % (Manual) Nucleated RBC % Seg Neutrophils # Seg Neutrophils # Man 12.7 H Lymphocytes # (Manual) 0.0 L Monocytes # (Manual) Eosinophils # (Manual) Basophils # (Manual) PT INR D-Dimer ABG pH 7.310 L ABG pO2 73.2 L ABG HCO3 17.8 L ABG O2 Saturation 93.8 L ABG Base Excess -7.7 L ABG Hemoglobin 9.6 L Oxyhemoglobin 92.3 L Sodium Potassium Chloride Carbon Dioxide BUN Creatinine Glucose POC Glucose Lactic Acid 7.10 H* Calcium Magnesium Iron TIBC Ferritin AST ALT Lactate Dehydrogenase Troponin T C-Reactive Protein Total Protein Albumin Prealbumin Cholesterol LDL Cholesterol Direct HDL Cholesterol Urine WBC (Auto) Vancomycin Trough Coronavirus (PCR) Crossmatch 07/04/19 07/04/19 07/04/19 07:05 07:05 07:05 WBC RBC Hgb Hct MCV MCH MCHC RDW Plt Count Lymph % (Auto) [place] % (Auto) Lymph # [place] # Baso # Seg Neutrophils % Seg Neuts % (Manual) Lymphocytes % (Manual) Monocytes % (Manual) Basophils % (Manual) Nucleated RBC % Seg Neutrophils # Seg Neutrophils # Man Lymphocytes # (Manual) Monocytes # (Manual) Eosinophils # (Manual) Basophils # (Manual) PT INR D-Dimer ABG pH ABG pO2 ABG HCO3 ABG O2 Saturation ABG Base Excess ABG Hemoglobin Oxyhemoglobin Sodium 120 L Potassium 5.1 H Chloride 90.0 L Carbon Dioxide 14 L BUN 26 H Creatinine 0.5 L Glucose POC Glucose Lactic Acid 3.30 H* Calcium 8.0 L Magnesium Iron 9 L TIBC 97 L Ferritin AST 73 H ALT 91 H Lactate Dehydrogenase Troponin T C-Reactive Protein Total Protein 5.5 L Albumin 2.0 L Prealbumin Cholesterol LDL Cholesterol Direct HDL Cholesterol Urine WBC (Auto) Vancomycin Trough Coronavirus (PCR) Crossmatch 07/04/19 07/04/19 07/04/19 09:39 09:39 09:39 WBC RBC Hgb Hct MCV MCH MCHC RDW Plt Count Lymph % (Auto) [place] % (Auto) Lymph # [place] # Baso # Seg Neutrophils % Seg Neuts % (Manual) Lymphocytes % (Manual) Monocytes % (Manual) Basophils % (Manual) Nucleated RBC % Seg Neutrophils # Seg Neutrophils # Man Lymphocytes # (Manual) Monocytes # (Manual) Eosinophils # (Manual) Basophils # (Manual) PT INR D-Dimer 1419.14 H ABG pH ABG pO2 ABG HCO3 ABG O2 Saturation ABG Base Excess ABG Hemoglobin Oxyhemoglobin Sodium Potassium Chloride Carbon Dioxide BUN Creatinine Glucose POC Glucose Lactic Acid Calcium Magnesium Iron TIBC Ferritin 1719.0 H AST ALT Lactate Dehydrogenase 234 H Troponin T C-Reactive Protein 15.50 H Total Protein Albumin Prealbumin Cholesterol LDL Cholesterol Direct HDL Cholesterol Urine WBC (Auto) Vancomycin Trough Coronavirus (PCR) Crossmatch 07/04/19 07/04/19 07/04/19 10:09 18:08 18:28 WBC RBC Hgb Hct MCV MCH MCHC RDW Plt Count Lymph % (Auto) [place] % (Auto) Lymph # [place] # Baso # Seg Neutrophils % Seg Neuts % (Manual) Lymphocytes % (Manual) Monocytes % (Manual) Basophils % (Manual) Nucleated RBC % Seg Neutrophils # Seg Neutrophils # Man Lymphocytes # (Manual) Monocytes # (Manual) Eosinophils # (Manual) Basophils # (Manual) PT INR D-Dimer ABG pH ABG pO2 ABG HCO3 ABG O2 Saturation ABG Base Excess ABG Hemoglobin Oxyhemoglobin Sodium 117 L* Potassium 5.6 H Chloride 90.3 L Carbon Dioxide 16 L BUN 28 H Creatinine 0.5 L Glucose 58 L POC Glucose 65 L Lactic Acid Calcium 8.2 L Magnesium Iron TIBC Ferritin AST ALT Lactate Dehydrogenase Troponin T C-Reactive Protein Total Protein Albumin Prealbumin Cholesterol LDL Cholesterol Direct HDL Cholesterol Urine WBC (Auto) Vancomycin Trough Coronavirus (PCR) Positive A Crossmatch 07/04/19 07/04/19 07/04/19 23:45 Unknown Unknown WBC RBC Hgb Hct MCV MCH MCHC RDW Plt Count Lymph % (Auto) [place] % (Auto) Lymph # [place] # Baso # Seg Neutrophils % Seg Neuts % (Manual) Lymphocytes % (Manual) Monocytes % (Manual) Basophils % (Manual) Nucleated RBC % Seg Neutrophils # Seg Neutrophils # Man Lymphocytes # (Manual) Monocytes # (Manual) Eosinophils # (Manual) Basophils # (Manual) PT INR D-Dimer 759.77 H ABG pH ABG pO2 ABG HCO3 ABG O2 Saturation ABG Base Excess ABG Hemoglobin Oxyhemoglobin Sodium 122 L Potassium Chloride 93.0 L Carbon Dioxide 19 L BUN 27 H Creatinine 0.5 L Glucose POC Glucose Lactic Acid Calcium 8.3 L Magnesium Iron TIBC Ferritin 1301.0 H AST ALT Lactate Dehydrogenase Troponin T C-Reactive Protein Total Protein Albumin Prealbumin Cholesterol LDL Cholesterol Direct HDL Cholesterol Urine WBC (Auto) Vancomycin Trough Coronavirus (PCR) Crossmatch 07/04/19 07/05/19 07/05/19 Unknown 03:20 04:00 WBC RBC Hgb Hct MCV MCH MCHC RDW Plt Count Lymph % (Auto) [place] % (Auto) Lymph # [place] # Baso # Seg Neutrophils % Seg Neuts % (Manual) Lymphocytes % (Manual) Monocytes % (Manual) Basophils % (Manual) Nucleated RBC % Seg Neutrophils # Seg Neutrophils # Man Lymphocytes # (Manual) Monocytes # (Manual) Eosinophils # (Manual) Basophils # (Manual) PT INR D-Dimer ABG pH ABG pO2 60.6 L ABG HCO3 ABG O2 Saturation 93.5 L ABG Base Excess -2.4 L ABG Hemoglobin 6.9 L Oxyhemoglobin 92.0 L Sodium 125 L Potassium Chloride 92.6 L Carbon Dioxide 19 L BUN 24 H Creatinine 0.6 L Glucose POC Glucose Lactic Acid Calcium 8.2 L Magnesium 1.40 L Iron TIBC Ferritin AST ALT Lactate Dehydrogenase 242 H Troponin T C-Reactive Protein 16.70 H Total Protein Albumin Prealbumin Cholesterol LDL Cholesterol Direct HDL Cholesterol Urine WBC (Auto) Vancomycin Trough Coronavirus (PCR) Crossmatch 07/05/19 07/05/19 07/05/19 10:11 16:15 17:54 WBC 46.4 H* RBC 2.77 L Hgb 7.2 L Hct 21.9 L MCV 79 L MCH 26 L MCHC RDW 19.0 H Plt Count Lymph % (Auto) [place] % (Auto) Lymph # [place] # Baso # Seg Neutrophils % Seg Neuts % (Manual) 82.0 H Lymphocytes % (Manual) 1.0 L Monocytes % (Manual) Basophils % (Manual) Nucleated RBC % Seg Neutrophils # Seg Neutrophils # Man 38.0 H Lymphocytes # (Manual) 0.5 L Monocytes # (Manual) Eosinophils # (Manual) Basophils # (Manual) PT INR D-Dimer ABG pH ABG pO2 ABG HCO3 ABG O2 Saturation ABG Base Excess ABG Hemoglobin Oxyhemoglobin Sodium Potassium Chloride Carbon Dioxide BUN Creatinine Glucose POC Glucose 69 L Lactic Acid Calcium Magnesium Iron TIBC Ferritin AST ALT Lactate Dehydrogenase Troponin T C-Reactive Protein Total Protein Albumin Prealbumin Cholesterol LDL Cholesterol Direct HDL Cholesterol Urine WBC (Auto) Vancomycin Trough 23.2 H Coronavirus (PCR) Crossmatch 07/05/19 07/06/19 07/06/19 19:58 00:27 00:27 WBC RBC Hgb Hct MCV MCH MCHC RDW Plt Count Lymph % (Auto) [place] % (Auto) Lymph # [place] # Baso # Seg Neutrophils % Seg Neuts % (Manual) Lymphocytes % (Manual) Monocytes % (Manual) Basophils % (Manual) Nucleated RBC % Seg Neutrophils # Seg Neutrophils # Man Lymphocytes # (Manual) Monocytes # (Manual) Eosinophils # (Manual) Basophils # (Manual) PT INR D-Dimer 1333.22 H ABG pH ABG pO2 ABG HCO3 ABG O2 Saturation ABG Base Excess ABG Hemoglobin Oxyhemoglobin Sodium 127 L Potassium Chloride Carbon Dioxide BUN Creatinine Glucose POC Glucose Lactic Acid Calcium Magnesium Iron TIBC Ferritin 977.1 H AST ALT Lactate Dehydrogenase Troponin T C-Reactive Protein Total Protein Albumin Prealbumin Cholesterol LDL Cholesterol Direct HDL Cholesterol Urine WBC (Auto) Vancomycin Trough Coronavirus (PCR) Crossmatch 07/06/19 07/06/19 07/06/19 00:27 02:00 02:56 WBC RBC Hgb Hct MCV MCH MCHC RDW Plt Count Lymph % (Auto) [place] % (Auto) Lymph # [place] # Baso # Seg Neutrophils % Seg Neuts % (Manual) Lymphocytes % (Manual) Monocytes % (Manual) Basophils % (Manual) Nucleated RBC % Seg Neutrophils # Seg Neutrophils # Man Lymphocytes # (Manual) Monocytes # (Manual) Eosinophils # (Manual) Basophils # (Manual) PT INR D-Dimer ABG pH ABG pO2 70.3 L ABG HCO3 ABG O2 Saturation 94.8 L ABG Base Excess ABG Hemoglobin 8.0 L Oxyhemoglobin 93.2 L Sodium Potassium Chloride Carbon Dioxide BUN Creatinine Glucose POC Glucose 117 H Lactic Acid Calcium Magnesium Iron TIBC Ferritin AST ALT Lactate Dehydrogenase 236 H Troponin T C-Reactive Protein 22.90 H Total Protein Albumin Prealbumin Cholesterol LDL Cholesterol Direct HDL Cholesterol Urine WBC (Auto) Vancomycin Trough Coronavirus (PCR) Crossmatch 07/06/19 07/06/19 07/06/19 03:49 03:49 07:40 WBC 38.8 H RBC 2.51 L Hgb 6.7 L Hct 19.9 L* MCV 79 L MCH 27 L MCHC RDW 19.2 H Plt Count Lymph % (Auto) [place] % (Auto) Lymph # [place] # Baso # Seg Neutrophils % Seg Neuts % (Manual) 90.5 H Lymphocytes % (Manual) 1.0 L Monocytes % (Manual) Basophils % (Manual) Nucleated RBC % Seg Neutrophils # Seg Neutrophils # Man 35.1 H Lymphocytes # (Manual) 0.4 L Monocytes # (Manual) Eosinophils # (Manual) Basophils # (Manual) PT INR D-Dimer ABG pH ABG pO2 ABG HCO3 ABG O2 Saturation ABG Base Excess ABG Hemoglobin Oxyhemoglobin Sodium 131 L Potassium Chloride 96.9 L Carbon Dioxide 18 L BUN 23 H Creatinine 0.5 L Glucose POC Glucose Lactic Acid Calcium 8.0 L Magnesium Iron TIBC Ferritin AST ALT Lactate Dehydrogenase Troponin T C-Reactive Protein Total Protein Albumin Prealbumin Cholesterol LDL Cholesterol Direct HDL Cholesterol Urine WBC (Auto) Vancomycin Trough Coronavirus (PCR) Crossmatch See Detail 07/06/19 07/06/19 07/06/19 12:38 14:39 20:00 WBC RBC Hgb Hct MCV MCH MCHC RDW Plt Count Lymph % (Auto) [place] % (Auto) Lymph # [place] # Baso # Seg Neutrophils % Seg Neuts % (Manual) Lymphocytes % (Manual) Monocytes % (Manual) Basophils % (Manual) Nucleated RBC % Seg Neutrophils # Seg Neutrophils # Man Lymphocytes # (Manual) Monocytes # (Manual) Eosinophils # (Manual) Basophils # (Manual) PT INR D-Dimer ABG pH ABG pO2 ABG HCO3 ABG O2 Saturation ABG Base Excess ABG Hemoglobin Oxyhemoglobin Sodium Potassium Chloride Carbon Dioxide BUN Creatinine Glucose POC Glucose 112 H 111 H 140 H Lactic Acid Calcium Magnesium Iron TIBC Ferritin AST ALT Lactate Dehydrogenase Troponin T C-Reactive Protein Total Protein Albumin Prealbumin Cholesterol LDL Cholesterol Direct HDL Cholesterol Urine WBC (Auto) Vancomycin Trough Coronavirus (PCR) Crossmatch 07/06/19 07/06/19 07/07/19 22:43 22:56 02:20 WBC RBC Hgb 7.9 L Hct 23.1 L MCV MCH MCHC RDW Plt Count Lymph % (Auto) [place] % (Auto) Lymph # [place] # Baso # Seg Neutrophils % Seg Neuts % (Manual) Lymphocytes % (Manual) Monocytes % (Manual) Basophils % (Manual) Nucleated RBC % Seg Neutrophils # Seg Neutrophils # Man Lymphocytes # (Manual) Monocytes # (Manual) Eosinophils # (Manual) Basophils # (Manual) PT INR D-Dimer ABG pH ABG pO2 ABG HCO3 ABG O2 Saturation ABG Base Excess ABG Hemoglobin Oxyhemoglobin Sodium Potassium Chloride Carbon Dioxide BUN Creatinine Glucose POC Glucose 122 H 149 H Lactic Acid Calcium Magnesium Iron TIBC Ferritin AST ALT Lactate Dehydrogenase Troponin T C-Reactive Protein Total Protein Albumin Prealbumin Cholesterol LDL Cholesterol Direct HDL Cholesterol Urine WBC (Auto) Vancomycin Trough Coronavirus (PCR) Crossmatch 07/07/19 07/07/19 07/07/19 04:35 05:27 05:34 WBC 23.1 H RBC 3.00 L Hgb 8.1 L Hct 24.2 L MCV 81 L MCH 27 L MCHC RDW 20.6 H Plt Count Lymph % (Auto) [place] % (Auto) Lymph # [place] # Baso # Seg Neutrophils % Seg Neuts % (Manual) 90.0 H Lymphocytes % (Manual) 2.0 L Monocytes % (Manual) Basophils % (Manual) Nucleated RBC % Seg Neutrophils # Seg Neutrophils # Man 20.8 H Lymphocytes # (Manual) 0.5 L Monocytes # (Manual) Eosinophils # (Manual) Basophils # (Manual) PT INR D-Dimer ABG pH ABG pO2 65.8 L ABG HCO3 ABG O2 Saturation 92.2 L ABG Base Excess ABG Hemoglobin 8.3 L Oxyhemoglobin 90.6 L Sodium Potassium Chloride Carbon Dioxide BUN Creatinine Glucose POC Glucose 132 H Lactic Acid Calcium Magnesium Iron TIBC Ferritin AST ALT Lactate Dehydrogenase Troponin T C-Reactive Protein Total Protein Albumin Prealbumin Cholesterol LDL Cholesterol Direct HDL Cholesterol Urine WBC (Auto) Vancomycin Trough Coronavirus (PCR) Crossmatch 07/07/19 07/07/19 07/07/19 05:34 11:50 15:58 WBC RBC Hgb 8.1 L Hct 24.2 L MCV MCH MCHC RDW Plt Count Lymph % (Auto) [place] % (Auto) Lymph # [place] # Baso # Seg Neutrophils % Seg Neuts % (Manual) Lymphocytes % (Manual) Monocytes % (Manual) Basophils % (Manual) Nucleated RBC % Seg Neutrophils # Seg Neutrophils # Man Lymphocytes # (Manual) Monocytes # (Manual) Eosinophils # (Manual) Basophils # (Manual) PT INR D-Dimer ABG pH ABG pO2 ABG HCO3 ABG O2 Saturation ABG Base Excess ABG Hemoglobin Oxyhemoglobin Sodium 135 L Potassium 3.3 L Chloride Carbon Dioxide 20 L BUN 27 H Creatinine 0.6 L Glucose 121 H POC Glucose 123 H Lactic Acid Calcium 8.0 L Magnesium Iron TIBC Ferritin AST ALT Lactate Dehydrogenase Troponin T C-Reactive Protein Total Protein Albumin Prealbumin Cholesterol LDL Cholesterol Direct HDL Cholesterol Urine WBC (Auto) Vancomycin Trough Coronavirus (PCR) Crossmatch 07/07/19 07/07/19 07/07/19 17:42 22:00 23:53 WBC RBC Hgb 8.0 L Hct 23.4 L MCV MCH MCHC RDW Plt Count Lymph % (Auto) [place] % (Auto) Lymph # [place] # Baso # Seg Neutrophils % Seg Neuts % (Manual) Lymphocytes % (Manual) Monocytes % (Manual) Basophils % (Manual) Nucleated RBC % Seg Neutrophils # Seg Neutrophils # Man Lymphocytes # (Manual) Monocytes # (Manual) Eosinophils # (Manual) Basophils # (Manual) PT INR D-Dimer ABG pH ABG pO2 ABG HCO3 ABG O2 Saturation ABG Base Excess ABG Hemoglobin Oxyhemoglobin Sodium Potassium Chloride Carbon Dioxide BUN Creatinine Glucose POC Glucose 107 H 117 H Lactic Acid Calcium Magnesium Iron TIBC Ferritin AST ALT Lactate Dehydrogenase Troponin T C-Reactive Protein Total Protein Albumin Prealbumin Cholesterol LDL Cholesterol Direct HDL Cholesterol Urine WBC (Auto) Vancomycin Trough Coronavirus (PCR) Crossmatch 07/08/19 07/08/19 07/08/19 00:45 00:45 00:45 WBC RBC Hgb Hct MCV MCH MCHC RDW Plt Count Lymph % (Auto) [place] % (Auto) Lymph # [place] # Baso # Seg Neutrophils % Seg Neuts % (Manual) Lymphocytes % (Manual) Monocytes % (Manual) Basophils % (Manual) Nucleated RBC % Seg Neutrophils # Seg Neutrophils # Man Lymphocytes # (Manual) Monocytes # (Manual) Eosinophils # (Manual) Basophils # (Manual) PT INR D-Dimer 1142.18 H ABG pH ABG pO2 ABG HCO3 ABG O2 Saturation ABG Base Excess ABG Hemoglobin Oxyhemoglobin Sodium Potassium Chloride Carbon Dioxide BUN Creatinine Glucose POC Glucose Lactic Acid Calcium Magnesium Iron TIBC Ferritin 839.0 H AST ALT Lactate Dehydrogenase 253 H Troponin T C-Reactive Protein 18.90 H Total Protein Albumin Prealbumin Cholesterol LDL Cholesterol Direct HDL Cholesterol Urine WBC (Auto) Vancomycin Trough Coronavirus (PCR) Crossmatch 07/08/19 07/08/19 07/08/19 04:30 05:11 12:02 WBC RBC Hgb Hct MCV MCH MCHC RDW Plt Count Lymph % (Auto) [place] % (Auto) Lymph # [place] # Baso # Seg Neutrophils % Seg Neuts % (Manual) Lymphocytes % (Manual) Monocytes % (Manual) Basophils % (Manual) Nucleated RBC % Seg Neutrophils # Seg Neutrophils # Man Lymphocytes # (Manual) Monocytes # (Manual) Eosinophils # (Manual) Basophils # (Manual) PT INR D-Dimer ABG pH ABG pO2 66.0 L ABG HCO3 ABG O2 Saturation 92.3 L ABG Base Excess ABG Hemoglobin 7.7 L Oxyhemoglobin 90.7 L Sodium Potassium Chloride Carbon Dioxide BUN Creatinine Glucose POC Glucose 108 H 153 H Lactic Acid Calcium Magnesium Iron TIBC Ferritin AST ALT Lactate Dehydrogenase Troponin T C-Reactive Protein Total Protein Albumin Prealbumin Cholesterol LDL Cholesterol Direct HDL Cholesterol Urine WBC (Auto) Vancomycin Trough Coronavirus (PCR) Crossmatch 07/08/19 07/08/19 07/08/19 16:15 18:22 23:35 WBC RBC Hgb Hct MCV MCH MCHC RDW Plt Count Lymph % (Auto) [place] % (Auto) Lymph # [place] # Baso # Seg Neutrophils % Seg Neuts % (Manual) Lymphocytes % (Manual) Monocytes % (Manual) Basophils % (Manual) Nucleated RBC % Seg Neutrophils # Seg Neutrophils # Man Lymphocytes # (Manual) Monocytes # (Manual) Eosinophils # (Manual) Basophils # (Manual) PT INR D-Dimer ABG pH ABG pO2 ABG HCO3 ABG O2 Saturation ABG Base Excess ABG Hemoglobin Oxyhemoglobin Sodium 134 L Potassium 3.3 L Chloride Carbon Dioxide 21 L BUN 27 H Creatinine 0.6 L Glucose 146 H POC Glucose 134 H 133 H Lactic Acid Calcium Magnesium Iron TIBC Ferritin AST ALT Lactate Dehydrogenase Troponin T C-Reactive Protein Total Protein Albumin Prealbumin Cholesterol LDL Cholesterol Direct HDL Cholesterol Urine WBC (Auto) Vancomycin Trough Coronavirus (PCR) Crossmatch 07/09/19 07/09/19 07/09/19 04:30 04:30 05:00 WBC 18.9 H RBC 2.77 L Hgb 7.4 L Hct 22.8 L MCV 82 L MCH 27 L MCHC RDW 20.9 H Plt Count 130 L Lymph % (Auto) [place] % (Auto) Lymph # [place] # Baso # Seg Neutrophils % Seg Neuts % (Manual) 84.0 H Lymphocytes % (Manual) 0 L Monocytes % (Manual) Basophils % (Manual) Nucleated RBC % Seg Neutrophils # Seg Neutrophils # Man 15.9 H Lymphocytes # (Manual) 0.0 L Monocytes # (Manual) Eosinophils # (Manual) Basophils # (Manual) PT INR D-Dimer ABG pH ABG pO2 ABG HCO3 ABG O2 Saturation ABG Base Excess ABG Hemoglobin Oxyhemoglobin Sodium Potassium 3.1 L Chloride Carbon Dioxide BUN 26 H Creatinine 0.5 L Glucose 125 H POC Glucose 155 H Lactic Acid Calcium Magnesium Iron TIBC Ferritin AST ALT Lactate Dehydrogenase Troponin T C-Reactive Protein Total Protein Albumin Prealbumin Cholesterol LDL Cholesterol Direct HDL Cholesterol Urine WBC (Auto) Vancomycin Trough Coronavirus (PCR) Crossmatch 07/09/19 07/09/19 07/09/19 05:55 12:22 17:50 WBC RBC Hgb Hct MCV MCH MCHC RDW Plt Count Lymph % (Auto) [place] % (Auto) Lymph # [place] # Baso # Seg Neutrophils % Seg Neuts % (Manual) Lymphocytes % (Manual) Monocytes % (Manual) Basophils % (Manual) Nucleated RBC % Seg Neutrophils # Seg Neutrophils # Man Lymphocytes # (Manual) Monocytes # (Manual) Eosinophils # (Manual) Basophils # (Manual) PT INR D-Dimer ABG pH ABG pO2 62.8 L ABG HCO3 ABG O2 Saturation ABG Base Excess ABG Hemoglobin 6.1 L Oxyhemoglobin 93.9 L Sodium Potassium Chloride Carbon Dioxide BUN Creatinine Glucose POC Glucose 115 H 133 H Lactic Acid Calcium Magnesium Iron TIBC Ferritin AST ALT Lactate Dehydrogenase Troponin T C-Reactive Protein Total Protein Albumin Prealbumin Cholesterol LDL Cholesterol Direct HDL Cholesterol Urine WBC (Auto) Vancomycin Trough Coronavirus (PCR) Crossmatch 07/10/19 07/10/19 07/10/19 00:38 04:00 04:00 WBC RBC Hgb Hct MCV MCH MCHC RDW Plt Count Lymph % (Auto) [place] % (Auto) Lymph # [place] # Baso # Seg Neutrophils % Seg Neuts % (Manual) Lymphocytes % (Manual) Monocytes % (Manual) Basophils % (Manual) Nucleated RBC % Seg Neutrophils # Seg Neutrophils # Man Lymphocytes # (Manual) Monocytes # (Manual) Eosinophils # (Manual) Basophils # (Manual) PT INR D-Dimer ABG pH ABG pO2 ABG HCO3 ABG O2 Saturation ABG Base Excess ABG Hemoglobin Oxyhemoglobin Sodium Potassium Chloride 107.9 H Carbon Dioxide BUN 26 H Creatinine 0.4 L Glucose 137 H POC Glucose 122 H Lactic Acid Calcium Magnesium 1.50 L Iron TIBC Ferritin AST ALT Lactate Dehydrogenase 277 H Troponin T C-Reactive Protein 15.10 H Total Protein Albumin Prealbumin Cholesterol LDL Cholesterol Direct HDL Cholesterol Urine WBC (Auto) Vancomycin Trough Coronavirus (PCR) Crossmatch 07/10/19 07/10/19 07/10/19 04:07 05:21 17:25 WBC RBC Hgb Hct MCV MCH MCHC RDW Plt Count Lymph % (Auto) [place] % (Auto) Lymph # [place] # Baso # Seg Neutrophils % Seg Neuts % (Manual) Lymphocytes % (Manual) Monocytes % (Manual) Basophils % (Manual) Nucleated RBC % Seg Neutrophils # Seg Neutrophils # Man Lymphocytes # (Manual) Monocytes # (Manual) Eosinophils # (Manual) Basophils # (Manual) PT INR D-Dimer ABG pH ABG pO2 65.6 L ABG HCO3 26.3 H ABG O2 Saturation ABG Base Excess ABG Hemoglobin 6.7 L Oxyhemoglobin Sodium Potassium Chloride Carbon Dioxide BUN Creatinine Glucose POC Glucose 144 H 113 H Lactic Acid Calcium Magnesium Iron TIBC Ferritin AST ALT Lactate Dehydrogenase Troponin T C-Reactive Protein Total Protein Albumin Prealbumin Cholesterol LDL Cholesterol Direct HDL Cholesterol Urine WBC (Auto) Vancomycin Trough Coronavirus (PCR) Crossmatch 07/11/19 07/11/19 07/11/19 00:07 05:14 05:25 WBC RBC Hgb Hct MCV MCH MCHC RDW Plt Count Lymph % (Auto) [place] % (Auto) Lymph # [place] # Baso # Seg Neutrophils % Seg Neuts % (Manual) Lymphocytes % (Manual) Monocytes % (Manual) Basophils % (Manual) Nucleated RBC % Seg Neutrophils # Seg Neutrophils # Man Lymphocytes # (Manual) Monocytes # (Manual) Eosinophils # (Manual) Basophils # (Manual) PT INR D-Dimer ABG pH ABG pO2 ABG HCO3 ABG O2 Saturation ABG Base Excess ABG Hemoglobin 5.8 L Oxyhemoglobin Sodium Potassium Chloride 108.0 H Carbon Dioxide BUN 26 H Creatinine 0.4 L Glucose 110 H POC Glucose 121 H Lactic Acid Calcium Magnesium Iron TIBC Ferritin AST ALT Lactate Dehydrogenase Troponin T C-Reactive Protein Total Protein Albumin Prealbumin Cholesterol LDL Cholesterol Direct HDL Cholesterol Urine WBC (Auto) Vancomycin Trough Coronavirus (PCR) Crossmatch 07/11/19 07/11/19 07/11/19 12:27 18:00 23:42 WBC RBC Hgb Hct MCV MCH MCHC RDW Plt Count Lymph % (Auto) [place] % (Auto) Lymph # [place] # Baso # Seg Neutrophils % Seg Neuts % (Manual) Lymphocytes % (Manual) Monocytes % (Manual) Basophils % (Manual) Nucleated RBC % Seg Neutrophils # Seg Neutrophils # Man Lymphocytes # (Manual) Monocytes # (Manual) Eosinophils # (Manual) Basophils # (Manual) PT INR D-Dimer ABG pH ABG pO2 ABG HCO3 ABG O2 Saturation ABG Base Excess ABG Hemoglobin Oxyhemoglobin Sodium Potassium Chloride Carbon Dioxide BUN Creatinine Glucose POC Glucose 158 H 141 H 142 H Lactic Acid Calcium Magnesium Iron TIBC Ferritin AST ALT Lactate Dehydrogenase Troponin T C-Reactive Protein Total Protein Albumin Prealbumin Cholesterol LDL Cholesterol Direct HDL Cholesterol Urine WBC (Auto) Vancomycin Trough Coronavirus (PCR) Crossmatch 07/12/19 07/12/19 07/12/19 04:46 04:46 05:23 WBC 23.6 H RBC 2.51 L Hgb 6.7 L Hct 20.8 L MCV 83 L MCH 27 L MCHC RDW 20.3 H Plt Count Lymph % (Auto) [place] % (Auto) Lymph # [place] # Baso # Seg Neutrophils % Seg Neuts % (Manual) 94.0 H Lymphocytes % (Manual) 4.0 L Monocytes % (Manual) Basophils % (Manual) Nucleated RBC % Seg Neutrophils # Seg Neutrophils # Man 22.2 H Lymphocytes # (Manual) 0.9 L Monocytes # (Manual) Eosinophils # (Manual) Basophils # (Manual) PT INR D-Dimer ABG pH ABG pO2 ABG HCO3 ABG O2 Saturation ABG Base Excess ABG Hemoglobin Oxyhemoglobin Sodium Potassium Chloride 107.1 H Carbon Dioxide BUN 25 H Creatinine 0.4 L Glucose 122 H POC Glucose 118 H Lactic Acid Calcium Magnesium Iron TIBC Ferritin AST ALT Lactate Dehydrogenase Troponin T C-Reactive Protein Total Protein Albumin Prealbumin Cholesterol LDL Cholesterol Direct HDL Cholesterol Urine WBC (Auto) Vancomycin Trough Coronavirus (PCR) Crossmatch 07/12/19 07/12/19 07/12/19 08:49 11:36 18:15 WBC RBC Hgb Hct MCV MCH MCHC RDW Plt Count Lymph % (Auto) [place] % (Auto) Lymph # [place] # Baso # Seg Neutrophils % Seg Neuts % (Manual) Lymphocytes % (Manual) Monocytes % (Manual) Basophils % (Manual) Nucleated RBC % Seg Neutrophils # Seg Neutrophils # Man Lymphocytes # (Manual) Monocytes # (Manual) Eosinophils # (Manual) Basophils # (Manual) PT INR D-Dimer ABG pH ABG pO2 ABG HCO3 ABG O2 Saturation ABG Base Excess ABG Hemoglobin Oxyhemoglobin Sodium Potassium Chloride Carbon Dioxide BUN Creatinine Glucose POC Glucose 124 H 110 H Lactic Acid Calcium Magnesium Iron TIBC Ferritin AST ALT Lactate Dehydrogenase Troponin T C-Reactive Protein Total Protein Albumin Prealbumin Cholesterol LDL Cholesterol Direct HDL Cholesterol Urine WBC (Auto) Vancomycin Trough Coronavirus (PCR) Crossmatch See Detail 07/12/19 07/13/19 07/13/19 23:16 05:26 06:50 WBC 23.9 H RBC 2.58 L Hgb 6.9 L Hct 21.5 L MCV 83 L MCH 27 L MCHC RDW 19.0 H Plt Count Lymph % (Auto) [place] % (Auto) Lymph # [place] # Baso # Seg Neutrophils % Seg Neuts % (Manual) 96.0 H Lymphocytes % (Manual) 3.0 L Monocytes % (Manual) Basophils % (Manual) Nucleated RBC % Seg Neutrophils # Seg Neutrophils # Man 22.9 H Lymphocytes # (Manual) 0.7 L Monocytes # (Manual) Eosinophils # (Manual) Basophils # (Manual) PT INR D-Dimer ABG pH ABG pO2 ABG HCO3 ABG O2 Saturation ABG Base Excess ABG Hemoglobin Oxyhemoglobin Sodium Potassium Chloride Carbon Dioxide BUN Creatinine Glucose POC Glucose 108 H 126 H Lactic Acid Calcium Magnesium Iron TIBC Ferritin AST ALT Lactate Dehydrogenase Troponin T C-Reactive Protein Total Protein Albumin Prealbumin Cholesterol LDL Cholesterol Direct HDL Cholesterol Urine WBC (Auto) Vancomycin Trough Coronavirus (PCR) Crossmatch 07/13/19 07/13/19 07/13/19 06:50 12:38 18:05 WBC RBC Hgb Hct MCV MCH MCHC RDW Plt Count Lymph % (Auto) [place] % (Auto) Lymph # [place] # Baso # Seg Neutrophils % Seg Neuts % (Manual) Lymphocytes % (Manual) Monocytes % (Manual) Basophils % (Manual) Nucleated RBC % Seg Neutrophils # Seg Neutrophils # Man Lymphocytes # (Manual) Monocytes # (Manual) Eosinophils # (Manual) Basophils # (Manual) PT INR D-Dimer ABG pH ABG pO2 ABG HCO3 ABG O2 Saturation ABG Base Excess ABG Hemoglobin Oxyhemoglobin Sodium Potassium Chloride Carbon Dioxide BUN 33 H Creatinine 0.5 L Glucose 136 H POC Glucose 164 H 145 H Lactic Acid Calcium Magnesium Iron TIBC Ferritin AST ALT Lactate Dehydrogenase Troponin T C-Reactive Protein Total Protein Albumin Prealbumin Cholesterol LDL Cholesterol Direct HDL Cholesterol Urine WBC (Auto) Vancomycin Trough Coronavirus (PCR) Crossmatch 07/13/19 07/14/19 07/14/19 18:30 00:21 04:40 WBC 22.9 H RBC 2.45 L Hgb 6.6 L Hct 21.1 L MCV MCH 27 L MCHC 31 L RDW 19.2 H Plt Count Lymph % (Auto) [place] % (Auto) Lymph # [place] # Baso # Seg Neutrophils % Seg Neuts % (Manual) 91.0 H Lymphocytes % (Manual) 7.0 L Monocytes % (Manual) Basophils % (Manual) Nucleated RBC % Seg Neutrophils # Seg Neutrophils # Man 20.8 H Lymphocytes # (Manual) Monocytes # (Manual) Eosinophils # (Manual) Basophils # (Manual) PT INR D-Dimer ABG pH ABG pO2 58.1 L ABG HCO3 ABG O2 Saturation 88.7 L ABG Base Excess ABG Hemoglobin 7.8 L Oxyhemoglobin 86.8 L Sodium Potassium Chloride Carbon Dioxide BUN Creatinine Glucose POC Glucose 118 H Lactic Acid Calcium Magnesium Iron TIBC Ferritin AST ALT Lactate Dehydrogenase Troponin T C-Reactive Protein Total Protein Albumin Prealbumin Cholesterol LDL Cholesterol Direct HDL Cholesterol Urine WBC (Auto) Vancomycin Trough Coronavirus (PCR) Crossmatch 07/14/19 07/14/19 07/14/19 04:40 05:38 05:45 WBC RBC Hgb Hct MCV MCH MCHC RDW Plt Count Lymph % (Auto) [place] % (Auto) Lymph # [place] # Baso # Seg Neutrophils % Seg Neuts % (Manual) Lymphocytes % (Manual) Monocytes % (Manual) Basophils % (Manual) Nucleated RBC % Seg Neutrophils # Seg Neutrophils # Man Lymphocytes # (Manual) Monocytes # (Manual) Eosinophils # (Manual) Basophils # (Manual) PT INR D-Dimer ABG pH 7.230 L ABG pO2 72.1 L ABG HCO3 ABG O2 Saturation 89.3 L ABG Base Excess -2.7 L ABG Hemoglobin 6.7 L Oxyhemoglobin 87.7 L Sodium Potassium Chloride 107.4 H Carbon Dioxide BUN 45 H Creatinine Glucose 101 H POC Glucose 154 H Lactic Acid Calcium Magnesium Iron TIBC Ferritin AST ALT Lactate Dehydrogenase Troponin T C-Reactive Protein Total Protein Albumin Prealbumin Cholesterol LDL Cholesterol Direct HDL Cholesterol Urine WBC (Auto) Vancomycin Trough Coronavirus (PCR) Crossmatch 07/14/19 07/14/19 07/14/19 12:25 18:20 19:01 WBC 22.4 H RBC 2.70 L Hgb 7.5 L Hct 23.3 L MCV MCH MCHC RDW 19.5 H Plt Count Lymph % (Auto) [place] % (Auto) Lymph # [place] # Baso # Seg Neutrophils % Seg Neuts % (Manual) Lymphocytes % (Manual) Monocytes % (Manual) Basophils % (Manual) Nucleated RBC % Seg Neutrophils # Seg Neutrophils # Man Lymphocytes # (Manual) Monocytes # (Manual) Eosinophils # (Manual) Basophils # (Manual) PT INR D-Dimer ABG pH ABG pO2 ABG HCO3 ABG O2 Saturation ABG Base Excess ABG Hemoglobin Oxyhemoglobin Sodium Potassium Chloride Carbon Dioxide BUN Creatinine Glucose POC Glucose 136 H 131 H Lactic Acid Calcium Magnesium Iron TIBC Ferritin AST ALT Lactate Dehydrogenase Troponin T C-Reactive Protein Total Protein Albumin Prealbumin Cholesterol LDL Cholesterol Direct HDL Cholesterol Urine WBC (Auto) Vancomycin Trough Coronavirus (PCR) Crossmatch 07/15/19 07/15/19 07/15/19 00:17 04:35 05:18 WBC 20.6 H RBC 2.41 L Hgb 6.8 L Hct 20.7 L MCV MCH MCHC RDW 20.2 H Plt Count Lymph % (Auto) [place] % (Auto) Lymph # [place] # Baso # Seg Neutrophils % Seg Neuts % (Manual) 92.0 H Lymphocytes % (Manual) 5.0 L Monocytes % (Manual) Basophils % (Manual) Nucleated RBC % Seg Neutrophils # Seg Neutrophils # Man 19.0 H Lymphocytes # (Manual) 1.0 L Monocytes # (Manual) Eosinophils # (Manual) Basophils # (Manual) PT INR D-Dimer ABG pH 7.342 L ABG pO2 ABG HCO3 ABG O2 Saturation ABG Base Excess -3.1 L ABG Hemoglobin 7.2 L Oxyhemoglobin 94.9 L Sodium Potassium Chloride Carbon Dioxide BUN Creatinine Glucose POC Glucose 116 H Lactic Acid Calcium Magnesium Iron TIBC Ferritin AST ALT Lactate Dehydrogenase Troponin T C-Reactive Protein Total Protein Albumin Prealbumin Cholesterol LDL Cholesterol Direct HDL Cholesterol Urine WBC (Auto) Vancomycin Trough Coronavirus (PCR) Crossmatch 07/15/19 07/15/19 07/15/19 05:18 05:57 11:28 WBC RBC Hgb Hct MCV MCH MCHC RDW Plt Count Lymph % (Auto) [place] % (Auto) Lymph # [place] # Baso # Seg Neutrophils % Seg Neuts % (Manual) Lymphocytes % (Manual) Monocytes % (Manual) Basophils % (Manual) Nucleated RBC % Seg Neutrophils # Seg Neutrophils # Man Lymphocytes # (Manual) Monocytes # (Manual) Eosinophils # (Manual) Basophils # (Manual) PT INR D-Dimer ABG pH ABG pO2 ABG HCO3 ABG O2 Saturation ABG Base Excess ABG Hemoglobin Oxyhemoglobin Sodium Potassium Chloride Carbon Dioxide 20 L BUN 59 H Creatinine Glucose 140 H POC Glucose 139 H 117 H Lactic Acid Calcium Magnesium Iron TIBC Ferritin AST ALT Lactate Dehydrogenase Troponin T C-Reactive Protein Total Protein Albumin Prealbumin Cholesterol LDL Cholesterol Direct HDL Cholesterol Urine WBC (Auto) Vancomycin Trough Coronavirus (PCR) Crossmatch 07/15/19 07/16/19 07/16/19 18:13 00:06 03:43 WBC RBC Hgb Hct MCV MCH MCHC RDW Plt Count Lymph % (Auto) [place] % (Auto) Lymph # [place] # Baso # Seg Neutrophils % Seg Neuts % (Manual) Lymphocytes % (Manual) Monocytes % (Manual) Basophils % (Manual) Nucleated RBC % Seg Neutrophils # Seg Neutrophils # Man Lymphocytes # (Manual) Monocytes # (Manual) Eosinophils # (Manual) Basophils # (Manual) PT INR D-Dimer ABG pH 7.344 L ABG pO2 68.6 L ABG HCO3 ABG O2 Saturation ABG Base Excess -3.5 L ABG Hemoglobin 6.1 L Oxyhemoglobin 93.3 L Sodium Potassium Chloride Carbon Dioxide BUN Creatinine Glucose POC Glucose 114 H 119 H Lactic Acid Calcium Magnesium Iron TIBC Ferritin AST ALT Lactate Dehydrogenase Troponin T C-Reactive Protein Total Protein Albumin Prealbumin Cholesterol LDL Cholesterol Direct HDL Cholesterol Urine WBC (Auto) Vancomycin Trough Coronavirus (PCR) Crossmatch 07/16/19 07/16/19 07/16/19 04:41 04:41 12:09 WBC 19.6 H RBC 2.81 L Hgb 7.7 L Hct 24.0 L MCV MCH 27 L MCHC RDW 19.4 H Plt Count 514 H Lymph % (Auto) 6.7 L [place] % (Auto) Lymph # [place] # 1.0 H Baso # Seg Neutrophils % 87.0 H Seg Neuts % (Manual) Lymphocytes % (Manual) Monocytes % (Manual) Basophils % (Manual) Nucleated RBC % Seg Neutrophils # 17.0 H Seg Neutrophils # Man Lymphocytes # (Manual) Monocytes # (Manual) Eosinophils # (Manual) Basophils # (Manual) PT INR D-Dimer ABG pH ABG pO2 ABG HCO3 ABG O2 Saturation ABG Base Excess ABG Hemoglobin Oxyhemoglobin Sodium Potassium 5.9 H Chloride Carbon Dioxide 21 L BUN 73 H Creatinine 2.0 H Glucose POC Glucose 141 H Lactic Acid Calcium Magnesium Iron TIBC Ferritin AST ALT Lactate Dehydrogenase Troponin T C-Reactive Protein Total Protein Albumin Prealbumin Cholesterol LDL Cholesterol Direct HDL Cholesterol Urine WBC (Auto) Vancomycin Trough Coronavirus (PCR) Crossmatch 07/16/19 07/16/19 07/17/19 16:19 17:45 00:16 WBC RBC Hgb Hct MCV MCH MCHC RDW Plt Count Lymph % (Auto) [place] % (Auto) Lymph # [place] # Baso # Seg Neutrophils % Seg Neuts % (Manual) Lymphocytes % (Manual) Monocytes % (Manual) Basophils % (Manual) Nucleated RBC % Seg Neutrophils # Seg Neutrophils # Man Lymphocytes # (Manual) Monocytes # (Manual) Eosinophils # (Manual) Basophils # (Manual) PT INR D-Dimer ABG pH ABG pO2 ABG HCO3 ABG O2 Saturation ABG Base Excess ABG Hemoglobin Oxyhemoglobin Sodium Potassium 5.1 H Chloride Carbon Dioxide 20 L BUN 72 H Creatinine 1.7 H Glucose 128 H POC Glucose 181 H 164 H Lactic Acid Calcium Magnesium Iron TIBC Ferritin AST ALT Lactate Dehydrogenase Troponin T C-Reactive Protein Total Protein Albumin Prealbumin Cholesterol LDL Cholesterol Direct HDL Cholesterol Urine WBC (Auto) Vancomycin Trough Coronavirus (PCR) Crossmatch 07/17/19 07/17/19 07/17/19 04:20 04:39 04:39 WBC 16.1 H RBC 2.92 L Hgb 8.0 L Hct 25.5 L MCV MCH MCHC 31 L RDW 19.7 H Plt Count 564 H Lymph % (Auto) 3.6 L [place] % (Auto) 7.4 H Lymph # 0.6 L [place] # 1.2 H Baso # Seg Neutrophils % 87.5 H Seg Neuts % (Manual) Lymphocytes % (Manual) Monocytes % (Manual) Basophils % (Manual) Nucleated RBC % Seg Neutrophils # 14.1 H Seg Neutrophils # Man Lymphocytes # (Manual) Monocytes # (Manual) Eosinophils # (Manual) Basophils # (Manual) PT INR D-Dimer ABG pH 7.231 L ABG pO2 95.3 H ABG HCO3 ABG O2 Saturation ABG Base Excess -5.0 L ABG Hemoglobin 7.9 L Oxyhemoglobin 94.8 L Sodium Potassium Chloride 107.8 H Carbon Dioxide 21 L BUN 68 H Creatinine Glucose POC Glucose Lactic Acid Calcium Magnesium Iron TIBC Ferritin AST ALT Lactate Dehydrogenase Troponin T C-Reactive Protein Total Protein Albumin Prealbumin Cholesterol LDL Cholesterol Direct HDL Cholesterol Urine WBC (Auto) Vancomycin Trough Coronavirus (PCR) Crossmatch 07/17/19 07/17/19 07/17/19 05:28 12:11 18:48 WBC RBC Hgb Hct MCV MCH MCHC RDW Plt Count Lymph % (Auto) [place] % (Auto) Lymph # [place] # Baso # Seg Neutrophils % Seg Neuts % (Manual) Lymphocytes % (Manual) Monocytes % (Manual) Basophils % (Manual) Nucleated RBC % Seg Neutrophils # Seg Neutrophils # Man Lymphocytes # (Manual) Monocytes # (Manual) Eosinophils # (Manual) Basophils # (Manual) PT INR D-Dimer ABG pH ABG pO2 ABG HCO3 ABG O2 Saturation ABG Base Excess ABG Hemoglobin Oxyhemoglobin Sodium Potassium Chloride Carbon Dioxide BUN Creatinine Glucose POC Glucose 121 H 125 H 174 H Lactic Acid Calcium Magnesium Iron TIBC Ferritin AST ALT Lactate Dehydrogenase Troponin T C-Reactive Protein Total Protein Albumin Prealbumin Cholesterol LDL Cholesterol Direct HDL Cholesterol Urine WBC (Auto) Vancomycin Trough Coronavirus (PCR) Crossmatch 07/17/19 07/17/19 07/18/19 19:55 23:57 02:30 WBC RBC Hgb Hct MCV MCH MCHC RDW Plt Count Lymph % (Auto) [place] % (Auto) Lymph # [place] # Baso # Seg Neutrophils % Seg Neuts % (Manual) Lymphocytes % (Manual) Monocytes % (Manual) Basophils % (Manual) Nucleated RBC % Seg Neutrophils # Seg Neutrophils # Man Lymphocytes # (Manual) Monocytes # (Manual) Eosinophils # (Manual) Basophils # (Manual) PT INR D-Dimer ABG pH 7.344 L 7.294 L ABG pO2 78.5 L 119.2 H ABG HCO3 ABG O2 Saturation ABG Base Excess -3.3 L -2.6 L ABG Hemoglobin 8.6 L 8.1 L Oxyhemoglobin 94.8 L Sodium Potassium Chloride Carbon Dioxide BUN Creatinine Glucose POC Glucose 148 H Lactic Acid Calcium Magnesium Iron TIBC Ferritin AST ALT Lactate Dehydrogenase Troponin T C-Reactive Protein Total Protein Albumin Prealbumin Cholesterol LDL Cholesterol Direct HDL Cholesterol Urine WBC (Auto) Vancomycin Trough Coronavirus (PCR) Crossmatch 07/18/19 07/18/19 07/18/19 04:49 05:22 05:22 WBC 15.9 H RBC 3.00 L Hgb 8.1 L Hct 26.0 L MCV MCH 27 L MCHC 31 L RDW 19.4 H Plt Count 733 H Lymph % (Auto) 6.3 L [place] % (Auto) 7.4 H Lymph # 1.0 L [place] # 1.2 H Baso # 0.2 H Seg Neutrophils % 83.8 H Seg Neuts % (Manual) Lymphocytes % (Manual) Monocytes % (Manual) Basophils % (Manual) Nucleated RBC % Seg Neutrophils # 13.3 H Seg Neutrophils # Man Lymphocytes # (Manual) Monocytes # (Manual) Eosinophils # (Manual) Basophils # (Manual) PT INR D-Dimer ABG pH ABG pO2 ABG HCO3 ABG O2 Saturation ABG Base Excess ABG Hemoglobin Oxyhemoglobin Sodium Potassium Chloride 110.6 H Carbon Dioxide BUN 61 H Creatinine Glucose 109 H POC Glucose 116 H Lactic Acid Calcium Magnesium Iron TIBC Ferritin AST ALT Lactate Dehydrogenase Troponin T C-Reactive Protein Total Protein Albumin Prealbumin Cholesterol LDL Cholesterol Direct HDL Cholesterol Urine WBC (Auto) Vancomycin Trough Coronavirus (PCR) Crossmatch 07/18/19 07/18/19 07/18/19 12:23 18:06 22:20 WBC RBC Hgb Hct MCV MCH MCHC RDW Plt Count Lymph % (Auto) [place] % (Auto) Lymph # [place] # Baso # Seg Neutrophils % Seg Neuts % (Manual) Lymphocytes % (Manual) Monocytes % (Manual) Basophils % (Manual) Nucleated RBC % Seg Neutrophils # Seg Neutrophils # Man Lymphocytes # (Manual) Monocytes # (Manual) Eosinophils # (Manual) Basophils # (Manual) PT INR D-Dimer ABG pH 7.338 L ABG pO2 135.1 H ABG HCO3 ABG O2 Saturation ABG Base Excess ABG Hemoglobin 9.2 L Oxyhemoglobin Sodium Potassium Chloride Carbon Dioxide BUN Creatinine Glucose POC Glucose 114 H 113 H Lactic Acid Calcium Magnesium Iron TIBC Ferritin AST ALT Lactate Dehydrogenase Troponin T C-Reactive Protein Total Protein Albumin Prealbumin Cholesterol LDL Cholesterol Direct HDL Cholesterol Urine WBC (Auto) Vancomycin Trough Coronavirus (PCR) Crossmatch 07/18/19 07/19/19 07/19/19 23:33 03:45 05:18 WBC RBC Hgb Hct MCV MCH MCHC RDW Plt Count Lymph % (Auto) [place] % (Auto) Lymph # [place] # Baso # Seg Neutrophils % Seg Neuts % (Manual) Lymphocytes % (Manual) Monocytes % (Manual) Basophils % (Manual) Nucleated RBC % Seg Neutrophils # Seg Neutrophils # Man Lymphocytes # (Manual) Monocytes # (Manual) Eosinophils # (Manual) Basophils # (Manual) PT INR D-Dimer ABG pH 7.342 L ABG pO2 95.0 H ABG HCO3 ABG O2 Saturation ABG Base Excess ABG Hemoglobin 8.5 L Oxyhemoglobin Sodium Potassium Chloride Carbon Dioxide BUN Creatinine Glucose POC Glucose 125 H 111 H Lactic Acid Calcium Magnesium Iron TIBC Ferritin AST ALT Lactate Dehydrogenase Troponin T C-Reactive Protein Total Protein Albumin Prealbumin Cholesterol LDL Cholesterol Direct HDL Cholesterol Urine WBC (Auto) Vancomycin Trough Coronavirus (PCR) Crossmatch 07/19/19 07/19/19 07/19/19 08:45 08:45 11:47 WBC 15.9 H RBC 3.31 L Hgb 9.1 L Hct 28.4 L MCV MCH 27 L MCHC RDW 19.1 H Plt Count 858 H Lymph % (Auto) 4.9 L [place] % (Auto) 8.1 H Lymph # 0.8 L [place] # 1.3 H Baso # Seg Neutrophils % 85.5 H Seg Neuts % (Manual) Lymphocytes % (Manual) Monocytes % (Manual) Basophils % (Manual) Nucleated RBC % Seg Neutrophils # 13.6 H Seg Neutrophils # Man Lymphocytes # (Manual) Monocytes # (Manual) Eosinophils # (Manual) Basophils # (Manual) PT INR D-Dimer ABG pH ABG pO2 ABG HCO3 ABG O2 Saturation ABG Base Excess ABG Hemoglobin Oxyhemoglobin Sodium Potassium Chloride 111.6 H Carbon Dioxide BUN 50 H Creatinine 0.7 L Glucose 118 H POC Glucose 114 H Lactic Acid Calcium Magnesium Iron TIBC Ferritin AST ALT Lactate Dehydrogenase Troponin T C-Reactive Protein Total Protein Albumin Prealbumin Cholesterol LDL Cholesterol Direct HDL Cholesterol Urine WBC (Auto) Vancomycin Trough Coronavirus (PCR) Crossmatch 07/19/19 07/19/19 07/20/19 18:25 23:44 04:39 WBC RBC Hgb Hct MCV MCH MCHC RDW Plt Count Lymph % (Auto) [place] % (Auto) Lymph # [place] # Baso # Seg Neutrophils % Seg Neuts % (Manual) Lymphocytes % (Manual) Monocytes % (Manual) Basophils % (Manual) Nucleated RBC % Seg Neutrophils # Seg Neutrophils # Man Lymphocytes # (Manual) Monocytes # (Manual) Eosinophils # (Manual) Basophils # (Manual) PT INR D-Dimer ABG pH ABG pO2 ABG HCO3 ABG O2 Saturation ABG Base Excess ABG Hemoglobin Oxyhemoglobin Sodium Potassium Chloride 110.3 H Carbon Dioxide BUN 44 H Creatinine 0.6 L Glucose 120 H POC Glucose 115 H 117 H Lactic Acid Calcium Magnesium Iron TIBC Ferritin AST ALT Lactate Dehydrogenase Troponin T C-Reactive Protein Total Protein Albumin Prealbumin Cholesterol LDL Cholesterol Direct HDL Cholesterol Urine WBC (Auto) Vancomycin Trough Coronavirus (PCR) Crossmatch 07/20/19 07/21/19 07/21/19 05:30 11:59 17:40 WBC RBC Hgb Hct MCV MCH MCHC RDW Plt Count Lymph % (Auto) [place] % (Auto) Lymph # [place] # Baso # Seg Neutrophils % Seg Neuts % (Manual) Lymphocytes % (Manual) Monocytes % (Manual) Basophils % (Manual) Nucleated RBC % Seg Neutrophils # Seg Neutrophils # Man Lymphocytes # (Manual) Monocytes # (Manual) Eosinophils # (Manual) Basophils # (Manual) PT INR D-Dimer ABG pH ABG pO2 ABG HCO3 ABG O2 Saturation ABG Base Excess ABG Hemoglobin Oxyhemoglobin Sodium Potassium Chloride Carbon Dioxide BUN Creatinine Glucose POC Glucose 131 H 122 H 125 H Lactic Acid Calcium Magnesium Iron TIBC Ferritin AST ALT Lactate Dehydrogenase Troponin T C-Reactive Protein Total Protein Albumin Prealbumin Cholesterol LDL Cholesterol Direct HDL Cholesterol Urine WBC (Auto) Vancomycin Trough Coronavirus (PCR) Crossmatch 07/22/19 07/22/19 07/22/19 05:38 05:38 12:29 WBC 12.6 H RBC 3.19 L Hgb 8.9 L Hct 27.5 L MCV MCH MCHC RDW 18.9 H Plt Count 1101 H* Lymph % (Auto) [place] % (Auto) 12.2 H Lymph # [place] # 1.5 H Baso # Seg Neutrophils % 72.8 H Seg Neuts % (Manual) 76.0 H Lymphocytes % (Manual) 7.0 L Monocytes % (Manual) 14.0 H Basophils % (Manual) Nucleated RBC % 1.0 H Seg Neutrophils # 9.2 H Seg Neutrophils # Man 9.6 H Lymphocytes # (Manual) 0.9 L Monocytes # (Manual) 1.8 H Eosinophils # (Manual) Basophils # (Manual) PT INR D-Dimer ABG pH ABG pO2 ABG HCO3 ABG O2 Saturation ABG Base Excess ABG Hemoglobin Oxyhemoglobin Sodium Potassium 3.4 L Chloride Carbon Dioxide BUN 29 H Creatinine 0.5 L Glucose POC Glucose 116 H Lactic Acid Calcium Magnesium Iron TIBC Ferritin AST ALT Lactate Dehydrogenase Troponin T C-Reactive Protein Total Protein Albumin Prealbumin Cholesterol LDL Cholesterol Direct HDL Cholesterol Urine WBC (Auto) Vancomycin Trough Coronavirus (PCR) Crossmatch 07/22/19 07/22/19 07/23/19 18:20 23:51 04:52 WBC RBC Hgb Hct MCV MCH MCHC RDW Plt Count Lymph % (Auto) [place] % (Auto) Lymph # [place] # Baso # Seg Neutrophils % Seg Neuts % (Manual) Lymphocytes % (Manual) Monocytes % (Manual) Basophils % (Manual) Nucleated RBC % Seg Neutrophils # Seg Neutrophils # Man Lymphocytes # (Manual) Monocytes # (Manual) Eosinophils # (Manual) Basophils # (Manual) PT INR D-Dimer ABG pH ABG pO2 ABG HCO3 ABG O2 Saturation ABG Base Excess ABG Hemoglobin Oxyhemoglobin Sodium Potassium Chloride Carbon Dioxide BUN 24 H Creatinine 0.4 L Glucose POC Glucose 107 H 110 H Lactic Acid Calcium Magnesium Iron TIBC Ferritin AST ALT Lactate Dehydrogenase Troponin T C-Reactive Protein Total Protein Albumin Prealbumin Cholesterol LDL Cholesterol Direct HDL Cholesterol Urine WBC (Auto) Vancomycin Trough Coronavirus (PCR) Crossmatch 07/23/19 07/23/19 07/24/19 06:00 23:15 04:40 WBC RBC Hgb Hct MCV MCH MCHC RDW Plt Count Lymph % (Auto) [place] % (Auto) Lymph # [place] # Baso # Seg Neutrophils % Seg Neuts % (Manual) Lymphocytes % (Manual) Monocytes % (Manual) Basophils % (Manual) Nucleated RBC % Seg Neutrophils # Seg Neutrophils # Man Lymphocytes # (Manual) Monocytes # (Manual) Eosinophils # (Manual) Basophils # (Manual) PT INR D-Dimer ABG pH ABG pO2 73.5 L ABG HCO3 27.0 H 28.5 H ABG O2 Saturation 94.5 L ABG Base Excess ABG Hemoglobin 9.4 L 8.9 L Oxyhemoglobin 94.0 L 92.7 L Sodium Potassium Chloride Carbon Dioxide BUN Creatinine Glucose POC Glucose 117 H Lactic Acid Calcium Magnesium Iron TIBC Ferritin AST ALT Lactate Dehydrogenase Troponin T C-Reactive Protein Total Protein Albumin Prealbumin Cholesterol LDL Cholesterol Direct HDL Cholesterol Urine WBC (Auto) Vancomycin Trough Coronavirus (PCR) Crossmatch 07/24/19 07/24/19 07/25/19 05:25 12:06 00:16 WBC RBC Hgb Hct MCV MCH MCHC RDW Plt Count Lymph % (Auto) [place] % (Auto) Lymph # [place] # Baso # Seg Neutrophils % Seg Neuts % (Manual) Lymphocytes % (Manual) Monocytes % (Manual) Basophils % (Manual) Nucleated RBC % Seg Neutrophils # Seg Neutrophils # Man Lymphocytes # (Manual) Monocytes # (Manual) Eosinophils # (Manual) Basophils # (Manual) PT INR D-Dimer ABG pH ABG pO2 ABG HCO3 ABG O2 Saturation ABG Base Excess ABG Hemoglobin Oxyhemoglobin Sodium Potassium Chloride Carbon Dioxide BUN Creatinine Glucose POC Glucose 114 H 108 H 106 H Lactic Acid Calcium Magnesium Iron TIBC Ferritin AST ALT Lactate Dehydrogenase Troponin T C-Reactive Protein Total Protein Albumin Prealbumin Cholesterol LDL Cholesterol Direct HDL Cholesterol Urine WBC (Auto) Vancomycin Trough Coronavirus (PCR) Crossmatch 07/25/19 07/25/19 07/25/19 05:14 05:14 05:17 WBC 17.8 H RBC 3.32 L Hgb 9.2 L Hct 28.6 L MCV MCH MCHC RDW 19.9 H Plt Count 994 H Lymph % (Auto) [place] % (Auto) Lymph # [place] # Baso # Seg Neutrophils % Seg Neuts % (Manual) 82.0 H Lymphocytes % (Manual) 5.0 L Monocytes % (Manual) Basophils % (Manual) Nucleated RBC % Seg Neutrophils # Seg Neutrophils # Man 14.6 H Lymphocytes # (Manual) 0.9 L Monocytes # (Manual) 1.2 H Eosinophils # (Manual) Basophils # (Manual) PT INR D-Dimer ABG pH ABG pO2 ABG HCO3 ABG O2 Saturation ABG Base Excess ABG Hemoglobin Oxyhemoglobin Sodium Potassium Chloride Carbon Dioxide BUN Creatinine 0.4 L Glucose 110 H POC Glucose 107 H Lactic Acid Calcium Magnesium Iron TIBC Ferritin AST ALT Lactate Dehydrogenase Troponin T C-Reactive Protein Total Protein Albumin Prealbumin Cholesterol LDL Cholesterol Direct HDL Cholesterol Urine WBC (Auto) Vancomycin Trough Coronavirus (PCR) Crossmatch 07/25/19 07/25/19 07/26/19 11:55 23:49 06:01 WBC RBC Hgb Hct MCV MCH MCHC RDW Plt Count Lymph % (Auto) [place] % (Auto) Lymph # [place] # Baso # Seg Neutrophils % Seg Neuts % (Manual) Lymphocytes % (Manual) Monocytes % (Manual) Basophils % (Manual) Nucleated RBC % Seg Neutrophils # Seg Neutrophils # Man Lymphocytes # (Manual) Monocytes # (Manual) Eosinophils # (Manual) Basophils # (Manual) PT INR D-Dimer ABG pH ABG pO2 ABG HCO3 ABG O2 Saturation ABG Base Excess ABG Hemoglobin Oxyhemoglobin Sodium Potassium Chloride Carbon Dioxide BUN Creatinine Glucose POC Glucose 123 H 118 H 106 H Lactic Acid Calcium Magnesium Iron TIBC Ferritin AST ALT Lactate Dehydrogenase Troponin T C-Reactive Protein Total Protein Albumin Prealbumin Cholesterol LDL Cholesterol Direct HDL Cholesterol Urine WBC (Auto) Vancomycin Trough Coronavirus (PCR) Crossmatch 07/26/19 07/27/19 07/27/19 17:02 00:28 05:16 WBC RBC Hgb Hct MCV MCH MCHC RDW Plt Count Lymph % (Auto) [place] % (Auto) Lymph # [place] # Baso # Seg Neutrophils % Seg Neuts % (Manual) Lymphocytes % (Manual) Monocytes % (Manual) Basophils % (Manual) Nucleated RBC % Seg Neutrophils # Seg Neutrophils # Man Lymphocytes # (Manual) Monocytes # (Manual) Eosinophils # (Manual) Basophils # (Manual) PT INR D-Dimer ABG pH ABG pO2 63.4 L ABG HCO3 31.3 H ABG O2 Saturation 92.7 L ABG Base Excess 6.3 H ABG Hemoglobin 7.6 L Oxyhemoglobin 90.9 L Sodium Potassium Chloride Carbon Dioxide BUN Creatinine Glucose POC Glucose 116 H 158 H Lactic Acid Calcium Magnesium Iron TIBC Ferritin AST ALT Lactate Dehydrogenase Troponin T C-Reactive Protein Total Protein Albumin Prealbumin Cholesterol LDL Cholesterol Direct HDL Cholesterol Urine WBC (Auto) Vancomycin Trough Coronavirus (PCR) Crossmatch 07/28/19 07/28/19 07/28/19 10:13 10:13 23:54 WBC 18.5 H RBC 3.20 L Hgb 8.8 L Hct 26.8 L MCV MCH 27 L MCHC RDW 19.9 H Plt Count 730 H Lymph % (Auto) [place] % (Auto) Lymph # [place] # Baso # Seg Neutrophils % Seg Neuts % (Manual) Lymphocytes % (Manual) Monocytes % (Manual) Basophils % (Manual) Nucleated RBC % Seg Neutrophils # Seg Neutrophils # Man Lymphocytes # (Manual) Monocytes # (Manual) Eosinophils # (Manual) Basophils # (Manual) PT INR D-Dimer ABG pH ABG pO2 ABG HCO3 ABG O2 Saturation ABG Base Excess ABG Hemoglobin Oxyhemoglobin Sodium Potassium 3.2 L Chloride 97.5 L Carbon Dioxide 31 H BUN Creatinine 0.5 L Glucose POC Glucose 120 H Lactic Acid Calcium Magnesium Iron TIBC Ferritin AST ALT Lactate Dehydrogenase Troponin T C-Reactive Protein Total Protein Albumin Prealbumin Cholesterol LDL Cholesterol Direct HDL Cholesterol Urine WBC (Auto) Vancomycin Trough Coronavirus (PCR) Crossmatch 07/29/19 07/29/19 07/29/19 11:57 17:43 Unknown WBC RBC Hgb Hct MCV MCH MCHC RDW Plt Count Lymph % (Auto) [place] % (Auto) Lymph # [place] # Baso # Seg Neutrophils % Seg Neuts % (Manual) Lymphocytes % (Manual) Monocytes % (Manual) Basophils % (Manual) Nucleated RBC % Seg Neutrophils # Seg Neutrophils # Man Lymphocytes # (Manual) Monocytes # (Manual) Eosinophils # (Manual) Basophils # (Manual) PT INR D-Dimer ABG pH ABG pO2 ABG HCO3 ABG O2 Saturation ABG Base Excess ABG Hemoglobin Oxyhemoglobin Sodium Potassium Chloride Carbon Dioxide BUN Creatinine Glucose POC Glucose 112 H Lactic Acid Calcium Magnesium Iron TIBC Ferritin AST ALT Lactate Dehydrogenase Troponin T C-Reactive Protein Total Protein Albumin Prealbumin Cholesterol LDL Cholesterol Direct HDL Cholesterol Urine WBC (Auto) 63.0 H Vancomycin Trough Coronavirus (PCR) Positive A Crossmatch 07/30/19 07/30/19 07/30/19 00:20 04:35 04:35 WBC 24.3 H RBC 3.12 L Hgb 8.5 L Hct 26.3 L MCV MCH 27 L MCHC RDW 20.2 H Plt Count 550 H Lymph % (Auto) [place] % (Auto) Lymph # [place] # Baso # Seg Neutrophils % Seg Neuts % (Manual) Lymphocytes % (Manual) Monocytes % (Manual) Basophils % (Manual) Nucleated RBC % Seg Neutrophils # Seg Neutrophils # Man Lymphocytes # (Manual) Monocytes # (Manual) Eosinophils # (Manual) Basophils # (Manual) PT INR D-Dimer ABG pH ABG pO2 ABG HCO3 ABG O2 Saturation ABG Base Excess ABG Hemoglobin Oxyhemoglobin Sodium Potassium 3.0 L Chloride 96.3 L Carbon Dioxide 32 H BUN Creatinine 0.5 L Glucose POC Glucose 106 H Lactic Acid Calcium Magnesium Iron TIBC Ferritin AST ALT Lactate Dehydrogenase Troponin T C-Reactive Protein Total Protein Albumin Prealbumin Cholesterol LDL Cholesterol Direct HDL Cholesterol Urine WBC (Auto) Vancomycin Trough Coronavirus (PCR) Crossmatch 07/31/19 07/31/19 07/31/19 04:42 04:42 11:33 WBC 23.8 H RBC 3.10 L Hgb 8.4 L Hct 26.1 L MCV MCH 27 L MCHC RDW 19.6 H Plt Count 561 H Lymph % (Auto) [place] % (Auto) Lymph # [place] # Baso # Seg Neutrophils % Seg Neuts % (Manual) Lymphocytes % (Manual) Monocytes % (Manual) Basophils % (Manual) Nucleated RBC % Seg Neutrophils # Seg Neutrophils # Man Lymphocytes # (Manual) Monocytes # (Manual) Eosinophils # (Manual) Basophils # (Manual) PT INR D-Dimer ABG pH ABG pO2 ABG HCO3 ABG O2 Saturation ABG Base Excess ABG Hemoglobin Oxyhemoglobin Sodium 135 L Potassium Chloride 93.9 L Carbon Dioxide 32 H BUN Creatinine 0.4 L Glucose POC Glucose 116 H Lactic Acid Calcium Magnesium Iron TIBC Ferritin AST ALT Lactate Dehydrogenase Troponin T C-Reactive Protein Total Protein Albumin 1.6 L Prealbumin 0.037 L Cholesterol LDL Cholesterol Direct HDL Cholesterol Urine WBC (Auto) Vancomycin Trough Coronavirus (PCR) Crossmatch 07/31/19 08/01/19 08/01/19 23:33 04:57 04:57 WBC 26.7 H RBC 3.12 L Hgb 8.5 L Hct 26.3 L MCV MCH 27 L MCHC RDW 19.2 H Plt Count 602 H Lymph % (Auto) [place] % (Auto) Lymph # [place] # Baso # Seg Neutrophils % Seg Neuts % (Manual) 93.0 H Lymphocytes % (Manual) 2.0 L Monocytes % (Manual) Basophils % (Manual) Nucleated RBC % Seg Neutrophils # Seg Neutrophils # Man 24.8 H Lymphocytes # (Manual) 0.5 L Monocytes # (Manual) 1.1 H Eosinophils # (Manual) Basophils # (Manual) PT INR D-Dimer ABG pH ABG pO2 ABG HCO3 ABG O2 Saturation ABG Base Excess ABG Hemoglobin Oxyhemoglobin Sodium 132 L Potassium Chloride 93.8 L Carbon Dioxide 31 H BUN Creatinine 0.3 L Glucose POC Glucose 148 H Lactic Acid Calcium 8.1 L Magnesium Iron TIBC Ferritin AST ALT Lactate Dehydrogenase Troponin T C-Reactive Protein Total Protein Albumin Prealbumin Cholesterol LDL Cholesterol Direct HDL Cholesterol Urine WBC (Auto) Vancomycin Trough Coronavirus (PCR) Crossmatch 08/01/19 08/02/19 08/02/19 12:16 00:22 05:24 WBC RBC Hgb Hct MCV MCH MCHC RDW Plt Count Lymph % (Auto) [place] % (Auto) Lymph # [place] # Baso # Seg Neutrophils % Seg Neuts % (Manual) Lymphocytes % (Manual) Monocytes % (Manual) Basophils % (Manual) Nucleated RBC % Seg Neutrophils # Seg Neutrophils # Man Lymphocytes # (Manual) Monocytes # (Manual) Eosinophils # (Manual) Basophils # (Manual) PT INR D-Dimer ABG pH ABG pO2 ABG HCO3 ABG O2 Saturation ABG Base Excess ABG Hemoglobin Oxyhemoglobin Sodium Potassium Chloride Carbon Dioxide BUN Creatinine Glucose POC Glucose 120 H 119 H 113 H Lactic Acid Calcium Magnesium Iron TIBC Ferritin AST ALT Lactate Dehydrogenase Troponin T C-Reactive Protein Total Protein Albumin Prealbumin Cholesterol LDL Cholesterol Direct HDL Cholesterol Urine WBC (Auto) Vancomycin Trough Coronavirus (PCR) Crossmatch 08/03/19 08/03/19 08/03/19 05:20 12:01 23:48 WBC RBC Hgb Hct MCV MCH MCHC RDW Plt Count Lymph % (Auto) [place] % (Auto) Lymph # [place] # Baso # Seg Neutrophils % Seg Neuts % (Manual) Lymphocytes % (Manual) Monocytes % (Manual) Basophils % (Manual) Nucleated RBC % Seg Neutrophils # Seg Neutrophils # Man Lymphocytes # (Manual) Monocytes # (Manual) Eosinophils # (Manual) Basophils # (Manual) PT INR D-Dimer ABG pH ABG pO2 ABG HCO3 ABG O2 Saturation ABG Base Excess ABG Hemoglobin Oxyhemoglobin Sodium Potassium Chloride Carbon Dioxide BUN Creatinine Glucose POC Glucose 118 H 106 H 120 H Lactic Acid Calcium Magnesium Iron TIBC Ferritin AST ALT Lactate Dehydrogenase Troponin T C-Reactive Protein Total Protein Albumin Prealbumin Cholesterol LDL Cholesterol Direct HDL Cholesterol Urine WBC (Auto) Vancomycin Trough Coronavirus (PCR) Crossmatch 08/04/19 08/04/19 08/04/19 05:38 05:38 06:29 WBC 26.1 H RBC 2.77 L Hgb 7.5 L Hct 23.2 L MCV MCH 27 L MCHC RDW 19.2 H Plt Count 648 H Lymph % (Auto) [place] % (Auto) Lymph # [place] # Baso # Seg Neutrophils % Seg Neuts % (Manual) 90.5 H Lymphocytes % (Manual) 3.5 L Monocytes % (Manual) Basophils % (Manual) Nucleated RBC % Seg Neutrophils # Seg Neutrophils # Man 23.6 H Lymphocytes # (Manual) 0.9 L Monocytes # (Manual) 1.2 H Eosinophils # (Manual) Basophils # (Manual) PT INR D-Dimer ABG pH ABG pO2 ABG HCO3 ABG O2 Saturation ABG Base Excess ABG Hemoglobin Oxyhemoglobin Sodium 132 L Potassium 3.4 L D Chloride 92.7 L Carbon Dioxide 33 H BUN Creatinine 0.2 L Glucose POC Glucose 108 H Lactic Acid Calcium 8.1 L Magnesium Iron TIBC Ferritin AST ALT Lactate Dehydrogenase Troponin T C-Reactive Protein Total Protein Albumin Prealbumin Cholesterol LDL Cholesterol Direct HDL Cholesterol Urine WBC (Auto) Vancomycin Trough Coronavirus (PCR) Crossmatch 08/04/19 08/05/19 08/05/19 12:30 04:58 04:58 WBC 21.0 H RBC 2.63 L Hgb 7.2 L Hct 21.9 L MCV 83 L MCH 27 L MCHC RDW 18.9 H Plt Count 691 H Lymph % (Auto) [place] % (Auto) Lymph # [place] # Baso # Seg Neutrophils % Seg Neuts % (Manual) 86.0 H Lymphocytes % (Manual) 3.0 L Monocytes % (Manual) 10.0 H Basophils % (Manual) Nucleated RBC % Seg Neutrophils # Seg Neutrophils # Man 18.1 H Lymphocytes # (Manual) 0.6 L Monocytes # (Manual) 2.1 H Eosinophils # (Manual) Basophils # (Manual) PT INR D-Dimer ABG pH ABG pO2 ABG HCO3 ABG O2 Saturation ABG Base Excess ABG Hemoglobin Oxyhemoglobin Sodium 134 L Potassium 3.2 L Chloride 93.2 L Carbon Dioxide 34 H BUN 8 L Creatinine 0.3 L Glucose POC Glucose 138 H Lactic Acid Calcium 8.1 L Magnesium Iron TIBC Ferritin AST ALT Lactate Dehydrogenase Troponin T C-Reactive Protein Total Protein Albumin Prealbumin Cholesterol LDL Cholesterol Direct HDL Cholesterol Urine WBC (Auto) Vancomycin Trough Coronavirus (PCR) Crossmatch 08/05/19 08/05/19 08/05/19 11:53 17:57 23:58 WBC RBC Hgb Hct MCV MCH MCHC RDW Plt Count Lymph % (Auto) [place] % (Auto) Lymph # [place] # Baso # Seg Neutrophils % Seg Neuts % (Manual) Lymphocytes % (Manual) Monocytes % (Manual) Basophils % (Manual) Nucleated RBC % Seg Neutrophils # Seg Neutrophils # Man Lymphocytes # (Manual) Monocytes # (Manual) Eosinophils # (Manual) Basophils # (Manual) PT INR D-Dimer ABG pH ABG pO2 ABG HCO3 ABG O2 Saturation ABG Base Excess ABG Hemoglobin Oxyhemoglobin Sodium Potassium Chloride Carbon Dioxide BUN Creatinine Glucose POC Glucose 106 H 111 H 116 H Lactic Acid Calcium Magnesium Iron TIBC Ferritin AST ALT Lactate Dehydrogenase Troponin T C-Reactive Protein Total Protein Albumin Prealbumin Cholesterol LDL Cholesterol Direct HDL Cholesterol Urine WBC (Auto) Vancomycin Trough Coronavirus (PCR) Crossmatch 08/06/19 08/06/19 08/06/19 04:11 04:11 06:04 WBC 20.8 H RBC 2.80 L Hgb 7.6 L Hct 23.5 L MCV MCH 27 L MCHC RDW 19.0 H Plt Count 723 H Lymph % (Auto) [place] % (Auto) Lymph # [place] # Baso # Seg Neutrophils % Seg Neuts % (Manual) 88.0 H Lymphocytes % (Manual) 3.0 L Monocytes % (Manual) Basophils % (Manual) Nucleated RBC % Seg Neutrophils # Seg Neutrophils # Man 18.3 H Lymphocytes # (Manual) 0.6 L Monocytes # (Manual) Eosinophils # (Manual) Basophils # (Manual) 0.2 H PT INR D-Dimer ABG pH ABG pO2 ABG HCO3 ABG O2 Saturation ABG Base Excess ABG Hemoglobin Oxyhemoglobin Sodium Potassium 3.4 L Chloride 95.2 L Carbon Dioxide 32 H BUN Creatinine 0.3 L Glucose POC Glucose 108 H Lactic Acid Calcium 8.2 L Magnesium Iron TIBC Ferritin AST ALT Lactate Dehydrogenase Troponin T C-Reactive Protein Total Protein Albumin Prealbumin Cholesterol LDL Cholesterol Direct HDL Cholesterol Urine WBC (Auto) Vancomycin Trough Coronavirus (PCR) Crossmatch 08/06/19 08/06/19 08/07/19 12:23 17:13 00:21 WBC RBC Hgb Hct MCV MCH MCHC RDW Plt Count Lymph % (Auto) [place] % (Auto) Lymph # [place] # Baso # Seg Neutrophils % Seg Neuts % (Manual) Lymphocytes % (Manual) Monocytes % (Manual) Basophils % (Manual) Nucleated RBC % Seg Neutrophils # Seg Neutrophils # Man Lymphocytes # (Manual) Monocytes # (Manual) Eosinophils # (Manual) Basophils # (Manual) PT INR D-Dimer ABG pH ABG pO2 ABG HCO3 ABG O2 Saturation ABG Base Excess ABG Hemoglobin Oxyhemoglobin Sodium Potassium Chloride Carbon Dioxide BUN Creatinine Glucose POC Glucose 112 H 132 H 147 H Lactic Acid Calcium Magnesium Iron TIBC Ferritin AST ALT Lactate Dehydrogenase Troponin T C-Reactive Protein Total Protein Albumin Prealbumin Cholesterol LDL Cholesterol Direct HDL Cholesterol Urine WBC (Auto) Vancomycin Trough Coronavirus (PCR) Crossmatch 08/07/19 08/07/19 08/07/19 05:16 05:23 05:23 WBC 30.3 H RBC 2.69 L Hgb 7.1 L Hct 22.2 L MCV 83 L MCH 27 L MCHC RDW 19.1 H Plt Count 650 H Lymph % (Auto) [place] % (Auto) Lymph # [place] # Baso # Seg Neutrophils % Seg Neuts % (Manual) 88.0 H Lymphocytes % (Manual) 5.0 L Monocytes % (Manual) Basophils % (Manual) Nucleated RBC % Seg Neutrophils # Seg Neutrophils # Man 26.7 H Lymphocytes # (Manual) Monocytes # (Manual) 2.1 H Eosinophils # (Manual) Basophils # (Manual) PT INR D-Dimer ABG pH ABG pO2 ABG HCO3 ABG O2 Saturation ABG Base Excess ABG Hemoglobin Oxyhemoglobin Sodium 135 L Potassium 3.4 L Chloride 95.4 L Carbon Dioxide 32 H BUN Creatinine 0.4 L Glucose 120 H POC Glucose 120 H Lactic Acid Calcium 7.7 L Magnesium Iron TIBC Ferritin AST ALT Lactate Dehydrogenase Troponin T C-Reactive Protein Total Protein Albumin Prealbumin Cholesterol LDL Cholesterol Direct HDL Cholesterol Urine WBC (Auto) Vancomycin Trough Coronavirus (PCR) Crossmatch 08/07/19 08/07/19 08/07/19 10:24 10:24 11:10 WBC RBC Hgb Hct MCV MCH MCHC RDW Plt Count Lymph % (Auto) [place] % (Auto) Lymph # [place] # Baso # Seg Neutrophils % Seg Neuts % (Manual) Lymphocytes % (Manual) Monocytes % (Manual) Basophils % (Manual) Nucleated RBC % Seg Neutrophils # Seg Neutrophils # Man Lymphocytes # (Manual) Monocytes # (Manual) Eosinophils # (Manual) Basophils # (Manual) PT INR D-Dimer 1808.06 H ABG pH ABG pO2 73.3 L ABG HCO3 33.9 H ABG O2 Saturation ABG Base Excess 9.0 H ABG Hemoglobin 6.3 L Oxyhemoglobin 94.3 L Sodium Potassium Chloride Carbon Dioxide BUN Creatinine Glucose POC Glucose Lactic Acid Calcium Magnesium Iron TIBC Ferritin AST ALT Lactate Dehydrogenase Troponin T C-Reactive Protein 11.10 H Total Protein Albumin Prealbumin Cholesterol LDL Cholesterol Direct HDL Cholesterol Urine WBC (Auto) Vancomycin Trough Coronavirus (PCR) Crossmatch 08/07/19 08/08/19 08/08/19 12:01 04:41 04:41 WBC 22.1 H RBC 2.82 L Hgb 7.7 L Hct 23.6 L MCV MCH 27 L MCHC RDW 19.1 H Plt Count 722 H Lymph % (Auto) [place] % (Auto) Lymph # [place] # Baso # Seg Neutrophils % Seg Neuts % (Manual) 90.0 H Lymphocytes % (Manual) 3.0 L Monocytes % (Manual) Basophils % (Manual) Nucleated RBC % Seg Neutrophils # Seg Neutrophils # Man 19.9 H Lymphocytes # (Manual) 0.7 L Monocytes # (Manual) 1.3 H Eosinophils # (Manual) Basophils # (Manual) PT INR D-Dimer ABG pH ABG pO2 ABG HCO3 ABG O2 Saturation ABG Base Excess ABG Hemoglobin Oxyhemoglobin Sodium 136 L Potassium Chloride 97.8 L Carbon Dioxide BUN Creatinine 0.3 L Glucose 105 H POC Glucose 130 H Lactic Acid Calcium 7.8 L Magnesium Iron TIBC Ferritin AST ALT Lactate Dehydrogenase Troponin T C-Reactive Protein Total Protein Albumin Prealbumin Cholesterol LDL Cholesterol Direct HDL Cholesterol Urine WBC (Auto) Vancomycin Trough Coronavirus (PCR) Crossmatch 08/08/19 08/08/19 08/09/19 11:46 18:35 00:12 WBC RBC Hgb Hct MCV MCH MCHC RDW Plt Count Lymph % (Auto) [place] % (Auto) Lymph # [place] # Baso # Seg Neutrophils % Seg Neuts % (Manual) Lymphocytes % (Manual) Monocytes % (Manual) Basophils % (Manual) Nucleated RBC % Seg Neutrophils # Seg Neutrophils # Man Lymphocytes # (Manual) Monocytes # (Manual) Eosinophils # (Manual) Basophils # (Manual) PT INR D-Dimer ABG pH ABG pO2 ABG HCO3 ABG O2 Saturation ABG Base Excess ABG Hemoglobin Oxyhemoglobin Sodium Potassium Chloride Carbon Dioxide BUN Creatinine Glucose POC Glucose 117 H 117 H 117 H Lactic Acid Calcium Magnesium Iron TIBC Ferritin AST ALT Lactate Dehydrogenase Troponin T C-Reactive Protein Total Protein Albumin Prealbumin Cholesterol LDL Cholesterol Direct HDL Cholesterol Urine WBC (Auto) Vancomycin Trough Coronavirus (PCR) Crossmatch 08/09/19 08/09/19 08/09/19 05:33 12:22 17:48 WBC RBC Hgb Hct MCV MCH MCHC RDW Plt Count Lymph % (Auto) [place] % (Auto) Lymph # [place] # Baso # Seg Neutrophils % Seg Neuts % (Manual) Lymphocytes % (Manual) Monocytes % (Manual) Basophils % (Manual) Nucleated RBC % Seg Neutrophils # Seg Neutrophils # Man Lymphocytes # (Manual) Monocytes # (Manual) Eosinophils # (Manual) Basophils # (Manual) PT INR D-Dimer ABG pH ABG pO2 ABG HCO3 ABG O2 Saturation ABG Base Excess ABG Hemoglobin Oxyhemoglobin Sodium Potassium Chloride Carbon Dioxide BUN Creatinine Glucose POC Glucose 119 H 133 H 123 H Lactic Acid Calcium Magnesium Iron TIBC Ferritin AST ALT Lactate Dehydrogenase Troponin T C-Reactive Protein Total Protein Albumin Prealbumin Cholesterol LDL Cholesterol Direct HDL Cholesterol Urine WBC (Auto) Vancomycin Trough Coronavirus (PCR) Crossmatch 08/09/19 08/09/19 08/10/19 17:59 18:15 00:02 WBC RBC Hgb 6.7 L Hct 20.4 L MCV MCH MCHC RDW Plt Count Lymph % (Auto) [place] % (Auto) Lymph # [place] # Baso # Seg Neutrophils % Seg Neuts % (Manual) Lymphocytes % (Manual) Monocytes % (Manual) Basophils % (Manual) Nucleated RBC % Seg Neutrophils # Seg Neutrophils # Man Lymphocytes # (Manual) Monocytes # (Manual) Eosinophils # (Manual) Basophils # (Manual) PT INR D-Dimer ABG pH ABG pO2 ABG HCO3 ABG O2 Saturation ABG Base Excess ABG Hemoglobin Oxyhemoglobin Sodium Potassium Chloride Carbon Dioxide BUN Creatinine Glucose POC Glucose 124 H Lactic Acid Calcium Magnesium Iron TIBC Ferritin AST ALT Lactate Dehydrogenase Troponin T C-Reactive Protein Total Protein Albumin Prealbumin Cholesterol LDL Cholesterol Direct HDL Cholesterol Urine WBC (Auto) Vancomycin Trough Coronavirus (PCR) Crossmatch See Detail 08/10/19 08/10/19 08/10/19 05:47 08:00 08:00 WBC 16.9 H RBC 2.94 L Hgb 8.2 L Hct 24.9 L MCV MCH MCHC RDW 17.0 H Plt Count 661 H Lymph % (Auto) [place] % (Auto) Lymph # [place] # Baso # Seg Neutrophils % Seg Neuts % (Manual) Lymphocytes % (Manual) Monocytes % (Manual) Basophils % (Manual) Nucleated RBC % Seg Neutrophils # Seg Neutrophils # Man Lymphocytes # (Manual) Monocytes # (Manual) Eosinophils # (Manual) Basophils # (Manual) PT INR D-Dimer ABG pH ABG pO2 ABG HCO3 ABG O2 Saturation ABG Base Excess ABG Hemoglobin Oxyhemoglobin Sodium Potassium Chloride Carbon Dioxide BUN Creatinine 0.3 L Glucose 116 H POC Glucose 148 H Lactic Acid Calcium 7.7 L Magnesium Iron TIBC Ferritin AST ALT Lactate Dehydrogenase Troponin T C-Reactive Protein Total Protein Albumin Prealbumin Cholesterol LDL Cholesterol Direct HDL Cholesterol Urine WBC (Auto) Vancomycin Trough Coronavirus (PCR) Crossmatch 08/10/19 08/10/19 08/10/19 12:38 18:06 23:56 WBC RBC Hgb Hct MCV MCH MCHC RDW Plt Count Lymph % (Auto) [place] % (Auto) Lymph # [place] # Baso # Seg Neutrophils % Seg Neuts % (Manual) Lymphocytes % (Manual) Monocytes % (Manual) Basophils % (Manual) Nucleated RBC % Seg Neutrophils # Seg Neutrophils # Man Lymphocytes # (Manual) Monocytes # (Manual) Eosinophils # (Manual) Basophils # (Manual) PT INR D-Dimer ABG pH ABG pO2 ABG HCO3 ABG O2 Saturation ABG Base Excess ABG Hemoglobin Oxyhemoglobin Sodium Potassium Chloride Carbon Dioxide BUN Creatinine Glucose POC Glucose 113 H 126 H 115 H Lactic Acid Calcium Magnesium Iron TIBC Ferritin AST ALT Lactate Dehydrogenase Troponin T C-Reactive Protein Total Protein Albumin Prealbumin Cholesterol LDL Cholesterol Direct HDL Cholesterol Urine WBC (Auto) Vancomycin Trough Coronavirus (PCR) Crossmatch 08/10/19 08/11/19 08/12/19 Unknown 18:10 03:30 WBC 14.4 H RBC 2.58 L Hgb 7.4 L Hct 22.1 L MCV MCH MCHC RDW 17.4 H Plt Count 786 H Lymph % (Auto) [place] % (Auto) Lymph # [place] # Baso # Seg Neutrophils % Seg Neuts % (Manual) Lymphocytes % (Manual) Monocytes % (Manual) Basophils % (Manual) Nucleated RBC % Seg Neutrophils # Seg Neutrophils # Man Lymphocytes # (Manual) Monocytes # (Manual) Eosinophils # (Manual) Basophils # (Manual) PT INR D-Dimer ABG pH ABG pO2 ABG HCO3 ABG O2 Saturation ABG Base Excess ABG Hemoglobin Oxyhemoglobin Sodium Potassium Chloride Carbon Dioxide BUN Creatinine Glucose POC Glucose 106 H Lactic Acid Calcium Magnesium Iron TIBC Ferritin AST ALT Lactate Dehydrogenase Troponin T C-Reactive Protein Total Protein Albumin Prealbumin Cholesterol LDL Cholesterol Direct HDL Cholesterol Urine WBC (Auto) Vancomycin Trough Coronavirus (PCR) Positive A Crossmatch 08/12/19 08/12/19 08/13/19 03:30 12:08 05:25 WBC RBC Hgb Hct MCV MCH MCHC RDW Plt Count Lymph % (Auto) [place] % (Auto) Lymph # [place] # Baso # Seg Neutrophils % Seg Neuts % (Manual) Lymphocytes % (Manual) Monocytes % (Manual) Basophils % (Manual) Nucleated RBC % Seg Neutrophils # Seg Neutrophils # Man Lymphocytes # (Manual) Monocytes # (Manual) Eosinophils # (Manual) Basophils # (Manual) PT INR D-Dimer ABG pH ABG pO2 ABG HCO3 ABG O2 Saturation ABG Base Excess ABG Hemoglobin Oxyhemoglobin Sodium Potassium Chloride Carbon Dioxide BUN 7 L Creatinine 0.3 L Glucose 117 H POC Glucose 112 H 126 H Lactic Acid Calcium 7.8 L Magnesium Iron TIBC Ferritin AST ALT Lactate Dehydrogenase Troponin T C-Reactive Protein Total Protein Albumin Prealbumin Cholesterol LDL Cholesterol Direct HDL Cholesterol Urine WBC (Auto) Vancomycin Trough Coronavirus (PCR) Crossmatch 08/13/19 08/13/19 08/13/19 11:36 17:10 19:06 WBC RBC Hgb Hct MCV MCH MCHC RDW Plt Count Lymph % (Auto) [place] % (Auto) Lymph # [place] # Baso # Seg Neutrophils % Seg Neuts % (Manual) Lymphocytes % (Manual) Monocytes % (Manual) Basophils % (Manual) Nucleated RBC % Seg Neutrophils # Seg Neutrophils # Man Lymphocytes # (Manual) Monocytes # (Manual) Eosinophils # (Manual) Basophils # (Manual) PT INR D-Dimer ABG pH ABG pO2 105.0 H ABG HCO3 28.5 H ABG O2 Saturation ABG Base Excess 3.5 H ABG Hemoglobin 7.8 L Oxyhemoglobin Sodium Potassium Chloride Carbon Dioxide BUN Creatinine Glucose POC Glucose 143 H 107 H Lactic Acid Calcium Magnesium Iron TIBC Ferritin AST ALT Lactate Dehydrogenase Troponin T C-Reactive Protein Total Protein Albumin Prealbumin Cholesterol LDL Cholesterol Direct HDL Cholesterol Urine WBC (Auto) Vancomycin Trough Coronavirus (PCR) Crossmatch 08/13/19 08/14/19 08/14/19 23:23 05:00 05:00 WBC 14.3 H RBC 2.76 L Hgb 7.8 L Hct 23.9 L MCV MCH MCHC RDW 18.7 H Plt Count 896 H Lymph % (Auto) [place] % (Auto) Lymph # [place] # Baso # Seg Neutrophils % Seg Neuts % (Manual) Lymphocytes % (Manual) Monocytes % (Manual) Basophils % (Manual) Nucleated RBC % Seg Neutrophils # Seg Neutrophils # Man Lymphocytes # (Manual) Monocytes # (Manual) Eosinophils # (Manual) Basophils # (Manual) PT INR D-Dimer ABG pH ABG pO2 ABG HCO3 ABG O2 Saturation ABG Base Excess ABG Hemoglobin Oxyhemoglobin Sodium Potassium Chloride Carbon Dioxide BUN 6 L Creatinine 0.3 L Glucose POC Glucose 125 H Lactic Acid Calcium 8.2 L Magnesium Iron TIBC Ferritin AST ALT Lactate Dehydrogenase Troponin T C-Reactive Protein Total Protein Albumin Prealbumin Cholesterol LDL Cholesterol Direct HDL Cholesterol Urine WBC (Auto) Vancomycin Trough Coronavirus (PCR) Crossmatch 08/14/19 08/15/19 08/15/19 05:07 00:25 05:42 WBC RBC Hgb Hct MCV MCH MCHC RDW Plt Count Lymph % (Auto) [place] % (Auto) Lymph # [place] # Baso # Seg Neutrophils % Seg Neuts % (Manual) Lymphocytes % (Manual) Monocytes % (Manual) Basophils % (Manual) Nucleated RBC % Seg Neutrophils # Seg Neutrophils # Man Lymphocytes # (Manual) Monocytes # (Manual) Eosinophils # (Manual) Basophils # (Manual) PT INR D-Dimer ABG pH ABG pO2 ABG HCO3 ABG O2 Saturation ABG Base Excess ABG Hemoglobin Oxyhemoglobin Sodium Potassium Chloride Carbon Dioxide BUN Creatinine Glucose POC Glucose 128 H 117 H 115 H Lactic Acid Calcium Magnesium Iron TIBC Ferritin AST ALT Lactate Dehydrogenase Troponin T C-Reactive Protein Total Protein Albumin Prealbumin Cholesterol LDL Cholesterol Direct HDL Cholesterol Urine WBC (Auto) Vancomycin Trough Coronavirus (PCR) Crossmatch 08/15/19 08/15/19 08/15/19 06:10 06:10 06:10 WBC 11.6 H RBC 2.68 L Hgb 7.7 L Hct 23.3 L MCV MCH MCHC RDW 19.2 H Plt Count 885 H Lymph % (Auto) [place] % (Auto) Lymph # [place] # Baso # Seg Neutrophils % Seg Neuts % (Manual) Lymphocytes % (Manual) Monocytes % (Manual) Basophils % (Manual) Nucleated RBC % Seg Neutrophils # Seg Neutrophils # Man Lymphocytes # (Manual) Monocytes # (Manual) Eosinophils # (Manual) Basophils # (Manual) PT INR D-Dimer ABG pH ABG pO2 ABG HCO3 ABG O2 Saturation ABG Base Excess ABG Hemoglobin Oxyhemoglobin Sodium Potassium Chloride Carbon Dioxide BUN 6 L Creatinine 0.3 L Glucose 107 H POC Glucose Lactic Acid Calcium 8.2 L Magnesium 1.50 L Iron TIBC Ferritin AST ALT Lactate Dehydrogenase Troponin T C-Reactive Protein Total Protein Albumin Prealbumin Cholesterol LDL Cholesterol Direct HDL Cholesterol Urine WBC (Auto) Vancomycin Trough Coronavirus (PCR) Crossmatch 08/15/19 08/16/19 08/16/19 12:12 00:05 05:00 WBC 13.3 H RBC 2.87 L Hgb 8.1 L Hct 24.9 L MCV MCH MCHC RDW 18.7 H Plt Count 962 H Lymph % (Auto) [place] % (Auto) Lymph # [place] # Baso # Seg Neutrophils % Seg Neuts % (Manual) Lymphocytes % (Manual) Monocytes % (Manual) Basophils % (Manual) Nucleated RBC % Seg Neutrophils # Seg Neutrophils # Man Lymphocytes # (Manual) Monocytes # (Manual) Eosinophils # (Manual) Basophils # (Manual) PT INR D-Dimer ABG pH ABG pO2 ABG HCO3 ABG O2 Saturation ABG Base Excess ABG Hemoglobin Oxyhemoglobin Sodium Potassium Chloride Carbon Dioxide BUN Creatinine Glucose POC Glucose 112 H 111 H Lactic Acid Calcium Magnesium Iron TIBC Ferritin AST ALT Lactate Dehydrogenase Troponin T C-Reactive Protein Total Protein Albumin Prealbumin Cholesterol LDL Cholesterol Direct HDL Cholesterol Urine WBC (Auto) Vancomycin Trough Coronavirus (PCR) Crossmatch 08/16/19 08/16/19 08/16/19 05:00 05:00 23:35 WBC RBC Hgb Hct MCV MCH MCHC RDW Plt Count Lymph % (Auto) [place] % (Auto) Lymph # [place] # Baso # Seg Neutrophils % Seg Neuts % (Manual) Lymphocytes % (Manual) Monocytes % (Manual) Basophils % (Manual) Nucleated RBC % Seg Neutrophils # Seg Neutrophils # Man Lymphocytes # (Manual) Monocytes # (Manual) Eosinophils # (Manual) Basophils # (Manual) PT INR D-Dimer ABG pH ABG pO2 ABG HCO3 ABG O2 Saturation ABG Base Excess ABG Hemoglobin Oxyhemoglobin Sodium 135 L Potassium Chloride Carbon Dioxide BUN 6 L Creatinine 0.3 L Glucose POC Glucose 108 H Lactic Acid Calcium 8.2 L Magnesium Iron TIBC Ferritin AST ALT Lactate Dehydrogenase Troponin T C-Reactive Protein 2.70 H Total Protein Albumin 2.1 L Prealbumin Cholesterol LDL Cholesterol Direct HDL Cholesterol Urine WBC (Auto) Vancomycin Trough Coronavirus (PCR) Crossmatch 08/17/19 08/17/19 08/17/19 05:15 20:20 23:42 WBC RBC Hgb Hct MCV MCH MCHC RDW Plt Count Lymph % (Auto) [place] % (Auto) Lymph # [place] # Baso # Seg Neutrophils % Seg Neuts % (Manual) Lymphocytes % (Manual) Monocytes % (Manual) Basophils % (Manual) Nucleated RBC % Seg Neutrophils # Seg Neutrophils # Man Lymphocytes # (Manual) Monocytes # (Manual) Eosinophils # (Manual) Basophils # (Manual) PT INR D-Dimer ABG pH ABG pO2 ABG HCO3 27.8 H ABG O2 Saturation ABG Base Excess ABG Hemoglobin 11.4 L Oxyhemoglobin 94.6 L Sodium Potassium Chloride Carbon Dioxide BUN Creatinine Glucose POC Glucose 138 H 132 H Lactic Acid Calcium Magnesium Iron TIBC Ferritin AST ALT Lactate Dehydrogenase Troponin T C-Reactive Protein Total Protein Albumin Prealbumin Cholesterol LDL Cholesterol Direct HDL Cholesterol Urine WBC (Auto) Vancomycin Trough Coronavirus (PCR) Crossmatch 08/18/19 08/18/19 08/18/19 06:00 06:00 12:02 WBC 19.7 H RBC 3.30 L Hgb 9.3 L Hct 28.5 L MCV MCH MCHC RDW 18.9 H Plt Count 923 H Lymph % (Auto) [place] % (Auto) Lymph # [place] # Baso # Seg Neutrophils % Seg Neuts % (Manual) Lymphocytes % (Manual) Monocytes % (Manual) Basophils % (Manual) Nucleated RBC % Seg Neutrophils # Seg Neutrophils # Man Lymphocytes # (Manual) Monocytes # (Manual) Eosinophils # (Manual) Basophils # (Manual) PT INR D-Dimer ABG pH ABG pO2 ABG HCO3 ABG O2 Saturation ABG Base Excess ABG Hemoglobin Oxyhemoglobin Sodium 136 L Potassium Chloride Carbon Dioxide BUN Creatinine 0.4 L Glucose 71 L POC Glucose 123 H Lactic Acid Calcium Magnesium Iron TIBC Ferritin AST ALT Lactate Dehydrogenase Troponin T C-Reactive Protein Total Protein Albumin Prealbumin Cholesterol LDL Cholesterol Direct HDL Cholesterol Urine WBC (Auto) Vancomycin Trough Coronavirus (PCR) Crossmatch 08/18/19 08/18/19 08/19/19 18:23 23:16 04:57 WBC RBC Hgb Hct MCV MCH MCHC RDW Plt Count Lymph % (Auto) [place] % (Auto) Lymph # [place] # Baso # Seg Neutrophils % Seg Neuts % (Manual) Lymphocytes % (Manual) Monocytes % (Manual) Basophils % (Manual) Nucleated RBC % Seg Neutrophils # Seg Neutrophils # Man Lymphocytes # (Manual) Monocytes # (Manual) Eosinophils # (Manual) Basophils # (Manual) PT INR D-Dimer ABG pH ABG pO2 ABG HCO3 ABG O2 Saturation ABG Base Excess ABG Hemoglobin Oxyhemoglobin Sodium Potassium Chloride Carbon Dioxide BUN Creatinine Glucose POC Glucose 140 H 159 H 134 H Lactic Acid Calcium Magnesium Iron TIBC Ferritin AST ALT Lactate Dehydrogenase Troponin T C-Reactive Protein Total Protein Albumin Prealbumin Cholesterol LDL Cholesterol Direct HDL Cholesterol Urine WBC (Auto) Vancomycin Trough Coronavirus (PCR) Crossmatch 08/19/19 08/19/19 08/19/19 07:44 08:17 18:15 WBC 30.5 H RBC 2.87 L Hgb 7.9 L Hct 24.5 L MCV MCH MCHC RDW 18.8 H Plt Count 772 H Lymph % (Auto) [place] % (Auto) Lymph # [place] # Baso # Seg Neutrophils % Seg Neuts % (Manual) 89.0 H Lymphocytes % (Manual) 4.0 L Monocytes % (Manual) Basophils % (Manual) 2.0 H Nucleated RBC % Seg Neutrophils # Seg Neutrophils # Man 27.1 H Lymphocytes # (Manual) Monocytes # (Manual) 0.9 H Eosinophils # (Manual) 0.6 H Basophils # (Manual) 0.6 H PT INR D-Dimer ABG pH ABG pO2 ABG HCO3 ABG O2 Saturation ABG Base Excess ABG Hemoglobin Oxyhemoglobin Sodium 136 L Potassium Chloride Carbon Dioxide BUN Creatinine 0.3 L Glucose POC Glucose 106 H Lactic Acid Calcium 8.2 L Magnesium Iron TIBC Ferritin AST ALT Lactate Dehydrogenase Troponin T C-Reactive Protein Total Protein Albumin Prealbumin Cholesterol LDL Cholesterol Direct HDL Cholesterol Urine WBC (Auto) Vancomycin Trough Coronavirus (PCR) Crossmatch 08/19/19 08/20/19 08/20/19 23:46 06:20 18:34 WBC RBC Hgb Hct MCV MCH MCHC RDW Plt Count Lymph % (Auto) [place] % (Auto) Lymph # [place] # Baso # Seg Neutrophils % Seg Neuts % (Manual) Lymphocytes % (Manual) Monocytes % (Manual) Basophils % (Manual) Nucleated RBC % Seg Neutrophils # Seg Neutrophils # Man Lymphocytes # (Manual) Monocytes # (Manual) Eosinophils # (Manual) Basophils # (Manual) PT INR D-Dimer ABG pH ABG pO2 ABG HCO3 ABG O2 Saturation ABG Base Excess ABG Hemoglobin Oxyhemoglobin Sodium Potassium Chloride Carbon Dioxide BUN Creatinine Glucose POC Glucose 144 H 115 H 125 H Lactic Acid Calcium Magnesium Iron TIBC Ferritin AST ALT Lactate Dehydrogenase Troponin T C-Reactive Protein Total Protein Albumin Prealbumin Cholesterol LDL Cholesterol Direct HDL Cholesterol Urine WBC (Auto) Vancomycin Trough Coronavirus (PCR) Crossmatch 08/20/19 08/20/19 08/21/19 Unknown Unknown 11:56 WBC 18.7 H RBC 2.70 L Hgb 7.6 L Hct 23.1 L MCV MCH MCHC RDW 18.9 H Plt Count 690 H Lymph % (Auto) [place] % (Auto) Lymph # [place] # Baso # Seg Neutrophils % Seg Neuts % (Manual) Lymphocytes % (Manual) Monocytes % (Manual) Basophils % (Manual) Nucleated RBC % Seg Neutrophils # Seg Neutrophils # Man Lymphocytes # (Manual) Monocytes # (Manual) Eosinophils # (Manual) Basophils # (Manual) PT INR D-Dimer ABG pH ABG pO2 ABG HCO3 ABG O2 Saturation ABG Base Excess ABG Hemoglobin Oxyhemoglobin Sodium 134 L Potassium Chloride 97.9 L Carbon Dioxide BUN Creatinine 0.3 L Glucose 115 H POC Glucose 116 H Lactic Acid Calcium 8.2 L Magnesium Iron TIBC Ferritin AST ALT Lactate Dehydrogenase Troponin T C-Reactive Protein Total Protein Albumin Prealbumin Cholesterol LDL Cholesterol Direct HDL Cholesterol Urine WBC (Auto) Vancomycin Trough Coronavirus (PCR) Crossmatch 08/21/19 08/22/19 08/22/19 18:14 00:31 05:53 WBC RBC Hgb Hct MCV MCH MCHC RDW Plt Count Lymph % (Auto) [place] % (Auto) Lymph # [place] # Baso # Seg Neutrophils % Seg Neuts % (Manual) Lymphocytes % (Manual) Monocytes % (Manual) Basophils % (Manual) Nucleated RBC % Seg Neutrophils # Seg Neutrophils # Man Lymphocytes # (Manual) Monocytes # (Manual) Eosinophils # (Manual) Basophils # (Manual) PT INR D-Dimer ABG pH ABG pO2 ABG HCO3 ABG O2 Saturation ABG Base Excess ABG Hemoglobin Oxyhemoglobin Sodium Potassium Chloride Carbon Dioxide BUN Creatinine Glucose POC Glucose 113 H 106 H 109 H Lactic Acid Calcium Magnesium Iron TIBC Ferritin AST ALT Lactate Dehydrogenase Troponin T C-Reactive Protein Total Protein Albumin Prealbumin Cholesterol LDL Cholesterol Direct HDL Cholesterol Urine WBC (Auto) Vancomycin Trough Coronavirus (PCR) Crossmatch 08/22/19 08/23/19 08/23/19 18:35 00:18 06:00 WBC 12.3 H RBC 2.92 L Hgb 8.0 L Hct 24.6 L MCV MCH MCHC RDW 18.5 H Plt Count 661 H Lymph % (Auto) 11.7 L [place] % (Auto) 9.2 H Lymph # [place] # 1.1 H Baso # Seg Neutrophils % 75.6 H Seg Neuts % (Manual) Lymphocytes % (Manual) Monocytes % (Manual) Basophils % (Manual) Nucleated RBC % Seg Neutrophils # 9.3 H Seg Neutrophils # Man Lymphocytes # (Manual) Monocytes # (Manual) Eosinophils # (Manual) Basophils # (Manual) PT INR D-Dimer ABG pH ABG pO2 ABG HCO3 ABG O2 Saturation ABG Base Excess ABG Hemoglobin Oxyhemoglobin Sodium Potassium Chloride Carbon Dioxide BUN Creatinine Glucose POC Glucose 130 H 124 H Lactic Acid Calcium Magnesium Iron TIBC Ferritin AST ALT Lactate Dehydrogenase Troponin T C-Reactive Protein Total Protein Albumin Prealbumin Cholesterol LDL Cholesterol Direct HDL Cholesterol Urine WBC (Auto) Vancomycin Trough Coronavirus (PCR) Crossmatch 08/23/19 08/23/19 08/24/19 06:09 17:46 00:04 WBC RBC Hgb Hct MCV MCH MCHC RDW Plt Count Lymph % (Auto) [place] % (Auto) Lymph # [place] # Baso # Seg Neutrophils % Seg Neuts % (Manual) Lymphocytes % (Manual) Monocytes % (Manual) Basophils % (Manual) Nucleated RBC % Seg Neutrophils # Seg Neutrophils # Man Lymphocytes # (Manual) Monocytes # (Manual) Eosinophils # (Manual) Basophils # (Manual) PT INR D-Dimer ABG pH ABG pO2 ABG HCO3 ABG O2 Saturation ABG Base Excess ABG Hemoglobin Oxyhemoglobin Sodium Potassium Chloride Carbon Dioxide BUN Creatinine Glucose POC Glucose 117 H 125 H 113 H Lactic Acid Calcium Magnesium Iron TIBC Ferritin AST ALT Lactate Dehydrogenase Troponin T C-Reactive Protein Total Protein Albumin Prealbumin Cholesterol LDL Cholesterol Direct HDL Cholesterol Urine WBC (Auto) Vancomycin Trough Coronavirus (PCR) Crossmatch 08/24/19 08/24/19 08/24/19 05:34 12:28 17:32 WBC RBC Hgb Hct MCV MCH MCHC RDW Plt Count Lymph % (Auto) [place] % (Auto) Lymph # [place] # Baso # Seg Neutrophils % Seg Neuts % (Manual) Lymphocytes % (Manual) Monocytes % (Manual) Basophils % (Manual) Nucleated RBC % Seg Neutrophils # Seg Neutrophils # Man Lymphocytes # (Manual) Monocytes # (Manual) Eosinophils # (Manual) Basophils # (Manual) PT INR D-Dimer ABG pH ABG pO2 ABG HCO3 ABG O2 Saturation ABG Base Excess ABG Hemoglobin Oxyhemoglobin Sodium Potassium Chloride Carbon Dioxide BUN Creatinine Glucose POC Glucose 128 H 127 H 116 H Lactic Acid Calcium Magnesium Iron TIBC Ferritin AST ALT Lactate Dehydrogenase Troponin T C-Reactive Protein Total Protein Albumin Prealbumin Cholesterol LDL Cholesterol Direct HDL Cholesterol Urine WBC (Auto) Vancomycin Trough Coronavirus (PCR) Crossmatch 08/24/19 08/25/19 08/25/19 23:41 05:37 12:30 WBC RBC Hgb Hct MCV MCH MCHC RDW Plt Count Lymph % (Auto) [place] % (Auto) Lymph # [place] # Baso # Seg Neutrophils % Seg Neuts % (Manual) Lymphocytes % (Manual) Monocytes % (Manual) Basophils % (Manual) Nucleated RBC % Seg Neutrophils # Seg Neutrophils # Man Lymphocytes # (Manual) Monocytes # (Manual) Eosinophils # (Manual) Basophils # (Manual) PT INR D-Dimer ABG pH ABG pO2 ABG HCO3 ABG O2 Saturation ABG Base Excess ABG Hemoglobin Oxyhemoglobin Sodium Potassium Chloride Carbon Dioxide BUN Creatinine Glucose POC Glucose 107 H 129 H 110 H Lactic Acid Calcium Magnesium Iron TIBC Ferritin AST ALT Lactate Dehydrogenase Troponin T C-Reactive Protein Total Protein Albumin Prealbumin Cholesterol LDL Cholesterol Direct HDL Cholesterol Urine WBC (Auto) Vancomycin Trough Coronavirus (PCR) Crossmatch 08/25/19 08/25/19 08/26/19 17:49 23:55 05:35 WBC RBC Hgb Hct MCV MCH MCHC RDW Plt Count Lymph % (Auto) [place] % (Auto) Lymph # [place] # Baso # Seg Neutrophils % Seg Neuts % (Manual) Lymphocytes % (Manual) Monocytes % (Manual) Basophils % (Manual) Nucleated RBC % Seg Neutrophils # Seg Neutrophils # Man Lymphocytes # (Manual) Monocytes # (Manual) Eosinophils # (Manual) Basophils # (Manual) PT INR D-Dimer ABG pH ABG pO2 ABG HCO3 ABG O2 Saturation ABG Base Excess ABG Hemoglobin Oxyhemoglobin Sodium Potassium Chloride Carbon Dioxide BUN Creatinine Glucose POC Glucose 107 H 137 H 117 H Lactic Acid Calcium Magnesium Iron TIBC Ferritin AST ALT Lactate Dehydrogenase Troponin T C-Reactive Protein Total Protein Albumin Prealbumin Cholesterol LDL Cholesterol Direct HDL Cholesterol Urine WBC (Auto) Vancomycin Trough Coronavirus (PCR) Crossmatch 08/27/19 08/27/19 08/27/19 00:59 06:01 07:21 WBC 11.6 H RBC 3.15 L Hgb 8.3 L Hct 26.1 L MCV 83 L MCH 26 L MCHC RDW 18.6 H Plt Count 743 H Lymph % (Auto) 11.8 L [place] % (Auto) 8.8 H Lymph # [place] # 1.0 H Baso # Seg Neutrophils % 75.3 H Seg Neuts % (Manual) Lymphocytes % (Manual) Monocytes % (Manual) Basophils % (Manual) Nucleated RBC % Seg Neutrophils # 8.7 H Seg Neutrophils # Man Lymphocytes # (Manual) Monocytes # (Manual) Eosinophils # (Manual) Basophils # (Manual) PT INR D-Dimer ABG pH ABG pO2 ABG HCO3 ABG O2 Saturation ABG Base Excess ABG Hemoglobin Oxyhemoglobin Sodium Potassium Chloride Carbon Dioxide BUN Creatinine Glucose POC Glucose 126 H 134 H Lactic Acid Calcium Magnesium Iron TIBC Ferritin AST ALT Lactate Dehydrogenase Troponin T C-Reactive Protein Total Protein Albumin Prealbumin Cholesterol LDL Cholesterol Direct HDL Cholesterol Urine WBC (Auto) Vancomycin Trough Coronavirus (PCR) Crossmatch 08/27/19 08/27/19 08/28/19 07:21 18:05 00:37 WBC RBC Hgb Hct MCV MCH MCHC RDW Plt Count Lymph % (Auto) [place] % (Auto) Lymph # [place] # Baso # Seg Neutrophils % Seg Neuts % (Manual) Lymphocytes % (Manual) Monocytes % (Manual) Basophils % (Manual) Nucleated RBC % Seg Neutrophils # Seg Neutrophils # Man Lymphocytes # (Manual) Monocytes # (Manual) Eosinophils # (Manual) Basophils # (Manual) PT INR D-Dimer ABG pH ABG pO2 ABG HCO3 ABG O2 Saturation ABG Base Excess ABG Hemoglobin Oxyhemoglobin Sodium 132 L Potassium 5.1 H Chloride 97.6 L Carbon Dioxide BUN Creatinine 0.3 L Glucose 119 H POC Glucose 127 H 106 H Lactic Acid Calcium Magnesium Iron TIBC Ferritin AST ALT Lactate Dehydrogenase Troponin T C-Reactive Protein Total Protein Albumin Prealbumin Cholesterol LDL Cholesterol Direct HDL Cholesterol Urine WBC (Auto) Vancomycin Trough Coronavirus (PCR) Crossmatch 08/28/19 08/29/19 08/29/19 18:14 00:01 12:16 WBC RBC Hgb Hct MCV MCH MCHC RDW Plt Count Lymph % (Auto) [place] % (Auto) Lymph # [place] # Baso # Seg Neutrophils % Seg Neuts % (Manual) Lymphocytes % (Manual) Monocytes % (Manual) Basophils % (Manual) Nucleated RBC % Seg Neutrophils # Seg Neutrophils # Man Lymphocytes # (Manual) Monocytes # (Manual) Eosinophils # (Manual) Basophils # (Manual) PT INR D-Dimer ABG pH ABG pO2 ABG HCO3 ABG O2 Saturation ABG Base Excess ABG Hemoglobin Oxyhemoglobin Sodium Potassium Chloride Carbon Dioxide BUN Creatinine Glucose POC Glucose 115 H 146 H 107 H Lactic Acid Calcium Magnesium Iron TIBC Ferritin AST ALT Lactate Dehydrogenase Troponin T C-Reactive Protein Total Protein Albumin Prealbumin Cholesterol LDL Cholesterol Direct HDL Cholesterol Urine WBC (Auto) Vancomycin Trough Coronavirus (PCR) Crossmatch 08/30/19 08/30/19 08/30/19 05:10 05:10 05:25 WBC 12.3 H RBC 3.01 L Hgb 8.0 L Hct 25.1 L MCV MCH 27 L MCHC RDW 19.3 H Plt Count 709 H Lymph % (Auto) 8.9 L [place] % (Auto) Lymph # 1.1 L [place] # Baso # Seg Neutrophils % 82.7 H Seg Neuts % (Manual) Lymphocytes % (Manual) Monocytes % (Manual) Basophils % (Manual) Nucleated RBC % Seg Neutrophils # 10.1 H Seg Neutrophils # Man Lymphocytes # (Manual) Monocytes # (Manual) Eosinophils # (Manual) Basophils # (Manual) PT INR D-Dimer ABG pH ABG pO2 ABG HCO3 ABG O2 Saturation ABG Base Excess ABG Hemoglobin Oxyhemoglobin Sodium 133 L Potassium Chloride 97.8 L Carbon Dioxide BUN Creatinine 0.3 L Glucose POC Glucose 106 H Lactic Acid Calcium Magnesium 1.50 L Iron TIBC Ferritin AST ALT Lactate Dehydrogenase Troponin T C-Reactive Protein Total Protein Albumin 2.4 L Prealbumin Cholesterol LDL Cholesterol Direct HDL Cholesterol Urine WBC (Auto) Vancomycin Trough Coronavirus (PCR) Crossmatch 08/30/19 08/30/19 08/31/19 18:26 23:48 05:32 WBC RBC Hgb Hct MCV MCH MCHC RDW Plt Count Lymph % (Auto) [place] % (Auto) Lymph # [place] # Baso # Seg Neutrophils % Seg Neuts % (Manual) Lymphocytes % (Manual) Monocytes % (Manual) Basophils % (Manual) Nucleated RBC % Seg Neutrophils # Seg Neutrophils # Man Lymphocytes # (Manual) Monocytes # (Manual) Eosinophils # (Manual) Basophils # (Manual) PT INR D-Dimer ABG pH ABG pO2 ABG HCO3 ABG O2 Saturation ABG Base Excess ABG Hemoglobin Oxyhemoglobin Sodium Potassium Chloride Carbon Dioxide BUN Creatinine Glucose POC Glucose 139 H 113 H 115 H Lactic Acid Calcium Magnesium Iron TIBC Ferritin AST ALT Lactate Dehydrogenase Troponin T C-Reactive Protein Total Protein Albumin Prealbumin Cholesterol LDL Cholesterol Direct HDL Cholesterol Urine WBC (Auto) Vancomycin Trough Coronavirus (PCR) Crossmatch 09/01/19 04:33 WBC RBC Hgb Hct MCV MCH MCHC RDW Plt Count Lymph % (Auto) [place] % (Auto) Lymph # [place] # Baso # Seg Neutrophils % Seg Neuts % (Manual) Lymphocytes % (Manual) Monocytes % (Manual) Basophils % (Manual) Nucleated RBC % Seg Neutrophils # Seg Neutrophils # Man Lymphocytes # (Manual) Monocytes # (Manual) Eosinophils # (Manual) Basophils # (Manual) PT INR D-Dimer ABG pH 7.485 H ABG pO2 483.8 H ABG HCO3 ABG O2 Saturation 99.6 H ABG Base Excess ABG Hemoglobin 8.0 L Oxyhemoglobin Sodium Potassium Chloride Carbon Dioxide BUN Creatinine Glucose POC Glucose Lactic Acid Calcium Magnesium Iron TIBC Ferritin AST ALT Lactate Dehydrogenase Troponin T C-Reactive Protein Total Protein Albumin Prealbumin Cholesterol LDL Cholesterol Direct HDL Cholesterol Urine WBC (Auto) Vancomycin Trough Coronavirus (PCR) Crossmatch Allied health notes reviewed: nursing
[2019-09-01] MEDS: INSULIN LISPRO 100 UNIT/ML SUB-Q SCH (12:34)
[2019-09-01] MEDS: ACETAMINOPHEN 325 MG/10.15 ML ORAL LIQD UNIT DOSE PO PRN (12:46)
[2019-09-01] MEDS: METOCLOPRAMIDE 10 MG/2 ML INJ IV SCH ×3 (13:03→23:47)
[2019-09-01] MEDS ORDERED: SODIUM CHLORIDE 0.9% 1000 ML 1,000 ML IV ONE (14:30)
[2019-09-01] MEDS ORDERED: MAGNESIUM SULFATE 2 GM/50 ML BAG IV ONE (14:30)
--- NOTE | 2019-09-01 14:56 | Progress Note ---
Assessment and Plan /Acute respiratory Failure with Hypoxia - Due to bilateral PNA with COVID 19 infection. -pulmonary critical care following -Continue scheduled labs, mechanical ventilation, supportive care as needed - s/p trach and PEG on 08/31/2019 /COVid positive b/l pneumonia with severe sepsis -Possible abscess, no need for drianage per ID/pULM -Received Plaquenil and cefepime, -Currently patient is on Levaquin per ID 08/20/2019; hernandez PCR negative 08/10/2019; hernandez PCR positive 07/29/2019; hernadnez PCR positive 07/04/2019; hernandez PCR positive /Adynamic ileus; on abdominal x-ray, -consulted surgery and recommended to resume tube feeding -Trach and PEG scheduled for 08/31/2019 /Vomitings: Probably secondary to high residuals -IV Zofran as needed, lowered the rate for tube feeding -Discussed with patient's nurse Acute metabolic encephalopathy -Likely due to respiratory arrest and severe sepsis with underlying advanced dementia - Hold Hyoscamine. monitor Troponins. -CT head unremarkable Shock, likely septic: Lactic acidosis -Levophed as needed, continue IV fluid COPD with exacerbation -Likely due to COVID-19 pneumonia -Continue scheduled nebs Anemia, Microcytic -due to iron deficiency - monitor H&H, transfused one unit Pressure Ulcers - buttocks, right lateral foot area - present upon admission - wound care consulted Hyponatremia, continue IV fluid DM type 2 - Accuchecks with sliding scale insulin HTN Essential, now hypotensive -relatively low BP - on IVF. monitor Seizure D/o/CVA/immobility/BIpolar D/o/SCZ chronic medical conditions - continue meds Severe PCM, TF for now, dietary following patient is DNR- Called and verified information Guarded prognosis, patient is critically ill Awaiting trach and PEG, and LTAC placement 07/04- 08/19: please see 08/[address] arana 08/20-08/28: please see 08/[address] Leyva 08/29: Resumed care. Remains on full ventilatory support mental status still unchanged. Continue supportive care. Monitor off antibiotics per ID. Resumed TF, plan for trach and PEG tomorrow. 08/30: Plan for trach and PEG today, will continue to provide supportive care and follow clinically 08/31: On trach and PEG. tolerating TF. pending LTAC placement The high probability of a clinically significant, sudden or life threatening deterioration of the [respiratory, CVS, X [employer]] system(s) required my full and direct attention, intervention and personal management. The aggregate critical care time was [32] minutes. This time is in addition to time spent performing reported procedures but includes the following: [x] Data Review and interpretation [x] Patient assessment and monitoring of vital signs [x] Documentation [x] Medication orders and management Brief History: 69-year-old male with PMH of CVA with RHP, HTN, DM2, SCZ, Dementia, Alcohol use D/o, Seizure D/O, presents to the emergency department via EMS from home with progressive SOB and impending espiratory failure with an unresponsive episode. Apparently the patient was witnessed becoming unresponsive by family members. Reportedly, pt had just gotten a high dose of Hyoscamine When EMS got there, the patient was agonal breathing and had a faint pulse. No CPR was indicated per EMS. PT was intubated and received some IV fluid en route to the hospital. He w as admitted for sepsis, b/l PNA, acute respiratory failure. Patient was tested positive for COVID19. Evaluated by ID , received antibiotics Plaquenil, and inflammatory markers were checked and followed. Patient continues to be hypotensive currently on Levophed, unable to wean- remains intubated on ventilatory support, critically ill, DNR status however family wants full treatment. Surgery evaluated recommend trach and PEG. need LTAC for discharge Physical exam: General appearance: Present: no acute distress, cachectic, other (On vent) - EENT Eyes: Present: PERRL, EOM intact - Neck Neck: Present: supple, normal ROM, other (trach tube) - Respiratory Respiratory effort: normal Respiratory: bilateral: diminished, negative: rales, rhonchi - Cardiovascular Rhythm: regular Heart Sounds: Present: S1 & S2 - Extremities Extremities: no ischemia, No edema - Abdominal General gastrointestinal: soft, non-tender, distended, PEG on place - Integumentary Integumentary: Present: clear, warm - Psychiatric Psychiatric: other (Intubated on trach) - Neurologic Neurologic: other (Intubated on trach) Subjective Date of service: 09/01/19 Principal diagnosis: Bilateral pneumonia, severe sepsis with septic shock, encephalopathy Interval history: Patient seen and examined. Medical records and medication list reviewed. No acute event overnight noted by the RN. Patient is now negative for COVID-19. Patient remains intubated with trach on mechanical ventilation Discussed plan of care at bedside with patient's RN, DIONICIO. Objective - Constitutional Vitals: Vital Signs - 12hr 09/01/19 09/01/19 09/01/19 03:00 04:00 04:09 Temperature 100 F H Pulse Rate 71 70 72 Pulse Rate [ 76 From Monitor] Respiratory 17 22 Rate Blood Pressure 117/68 114/67 134/70 O2 Sat by Pulse 100 100 100 Oximetry O2 Sat by Pulse Oximetry [ Assessment] 09/01/19 09/01/19 09/01/19 05:00 06:00 07:00 Temperature Pulse Rate 65 76 83 Pulse Rate [ From Monitor] Respiratory 17 17 14 Rate Blood Pressure 122/63 149/83 118/58 O2 Sat by Pulse 100 100 100 Oximetry O2 Sat by Pulse Oximetry [ Assessment] 09/01/19 09/01/19 09/01/19 08:00 09:00 09:53 Temperature 98.7 F Pulse Rate 85 97 H 92 H Pulse Rate [ 73 From Monitor] Respiratory 22 16 Rate Blood Pressure 118/62 102/59 111/52 O2 Sat by Pulse 100 100 Oximetry O2 Sat by Pulse 100 Oximetry [ Assessment] 09/01/19 09/01/19 09/01/19 10:00 11:00 11:41 Temperature Pulse Rate 92 H 86 88 Pulse Rate [ From Monitor] Respiratory 16 25 H Rate Blood Pressure 94/58 96/52 99/51 O2 Sat by Pulse 100 100 100 Oximetry O2 Sat by Pulse Oximetry [ Assessment] 09/01/19 09/01/19 09/01/19 12:00 13:00 14:00 Temperature 101.2 F H Pulse Rate 89 96 H 91 H Pulse Rate [ 89 From Monitor] Respiratory 31 H 18 16 Rate Blood Pressure 95/50 104/56 81/39 O2 Sat by Pulse 100 98 98 Oximetry O2 Sat by Pulse Oximetry [ Assessment] - Labs CBC & Chem 7: 08/30/19 05:10 09/01/19 14:50 Labs: Abnormal lab results 09/01/19 Range/Units 04:33 ABG pH 7.485 H (7.350-7.450) pH Units ABG pO2 483.8 H (80.0-90.0) mm Hg ABG O2 Saturation 99.6 H (95.0-99.0) % ABG Hemoglobin 8.0 L (14.0-18.0) gm/dl HEART Score - HEART Score Troponin: Troponin T 0.013 ng/mL (0.00-0.029) 07/04/19 07:05
[2019-09-01 15:24] LABS: BUN/Creatinine Ratio 40; Blood Urea Nitrogen 12 mg/dL (9-20); Calcium 8.6 mg/dL (8.4-10.2); Hemolysis Index 0
[2019-09-01 17:35] LABS: ABG Base Excess 0.2 mmol/L (-2.0-3.0); ABG HCO3 24.8 mmol/L (20.0-26.0); ABG Methemoglobin 0.3 % (0.0-1.5); ABG Oxygen Saturation 98.2 % (95.0-99.0); ABG PCO2 40.4 mm Hg; ABG PH 7.407 pH Units (7.350-7.450)
[2019-09-01] MEDS: D5W/0.45% NACL/KCL 10 MEQ 10 MEQ/1,000 ML BAG IV SCH (21:00)
[2019-09-01] MEDS: POLYETHYLENE GLYCOL 3350 17 GM POWDER PO SCH (22:13)
[2019-09-02] MEDS: INSULIN LISPRO 100 UNIT/ML SUB-Q SCH ×4 (00:04→17:33)
[2019-09-02] MEDS: METOCLOPRAMIDE 10 MG/2 ML INJ IV SCH ×4 (06:11→21:00)
[2019-09-02] MEDS: D5W/0.45% NACL/KCL 10 MEQ 10 MEQ/1,000 ML BAG IV SCH (08:36)
[2019-09-02] MEDS: SODIUM HYPOCHLORITE, DAKIN'S 1/2 STRENGTH (0.25%) 473 ML TOPICAL SOLN TP SCH ×2 (09:05→21:03)
[2019-09-02] MEDS: fentaNYL 25 MCG/HR PATCH 72HR TD SCH (09:06)
[2019-09-02] MEDS: SCOPOLAMINE TRANSDERMAL PATCH 72 HR TD SCH (09:07)
[2019-09-02] MEDS: DOCUSATE SODIUM 100 MG/10 ML ORAL LIQD PO SCH ×2 (09:07→21:03)
[2019-09-02] MEDS: ENOXAPARIN 40 MG/0.4 ML INJ SUB-Q SCH (09:08)
[2019-09-02] MEDS: METOPROLOL TARTRATE 25 MG TAB PO SCH (09:08)
[2019-09-02] MEDS: ASPIRIN 81 MG TAB CHEW PO SCH (09:08)
[2019-09-02] MEDS: FAMOTIDINE 20 MG TAB PO SCH ×2 (09:08→21:01)
[2019-09-02] MEDS: GLYCOPYRROLATE 1 MG TAB PO SCH ×3 (09:08→20:56)
[2019-09-02] MEDS: FOLIC ACID 1 MG TAB PO SCH (09:09)
[2019-09-02] MEDS: levETIRAcetam 500 MG/5 ML ORAL LIQD FEEDTUBE SCH ×2 (09:09→21:00)
--- NOTE | 2019-09-02 12:16 | Progress Note ---
Assessment and Plan /Acute respiratory Failure with Hypoxia - Due to bilateral PNA with COVID 19 infection. -pulmonary critical care following -Continue scheduled labs, mechanical ventilation, supportive care as needed - s/p trach and PEG on 08/31/2019 /COVid positive b/l pneumonia with severe sepsis -Possible abscess, no need for drianage per ID/pULM -Received Plaquenil and cefepime, -Currently patient is on Levaquin per ID 08/20/2019; hernandez PCR negative 08/10/2019; hernandez PCR positive 07/29/2019; hernandez PCR positive 07/04/2019; hernandez PCR positive /Adynamic ileus; on abdominal x-ray, -consulted surgery and recommended to resume tube feeding -Trach and PEG scheduled for 08/31/2019 /Vomitings: Probably secondary to high residuals -IV Zofran as needed, lowered the rate for tube feeding -Discussed with patient's nurse Acute metabolic encephalopathy -Likely due to respiratory arrest and severe sepsis with underlying advanced dementia - Hold Hyoscamine. monitor Troponins. -CT head unremarkable Shock, likely septic: Lactic acidosis -Levophed as needed, continue IV fluid COPD with exacerbation -Likely due to COVID-19 pneumonia -Continue scheduled nebs Anemia, Microcytic -due to iron deficiency - monitor H&H, transfused one unit Pressure Ulcers - buttocks, right lateral foot area - present upon admission - wound care consulted Hyponatremia, continue IV fluid DM type 2 - Accuchecks with sliding scale insulin HTN Essential, now hypotensive -relatively low BP - on IVF. monitor Seizure D/o/CVA/immobility/BIpolar D/o/SCZ chronic medical conditions - continue meds Severe PCM, TF for now, dietary following patient is DNR- Called and verified information Guarded prognosis, patient is critically ill Awaiting trach and PEG, and LTAC placement 07/04- 08/19: please see 08/[address] arana 08/20-08/28: please see 08/[address] Leyva 08/29: Resumed care. Remains on full ventilatory support mental status still unchanged. Continue supportive care. Monitor off antibiotics per ID. Resumed TF, plan for trach and PEG tomorrow. 08/30: Plan for trach and PEG today, will continue to provide supportive care and follow clinically 08/31: On trach and PEG. tolerating TF. pending LTAC placement 09/01: pending LTAC placement The high probability of a clinically significant, sudden or life threatening deterioration of the [respiratory, CVS, POST CLOSER] system(s) required my full and direct attention, intervention and personal management. The aggregate critical care time was [32] minutes. This time is in addition to time spent performing reported procedures but includes the following: [x] Data Review and interpretation [x] Patient assessment and monitoring of vital signs [x] Documentation [x] Medication orders and management Brief History: 69-year-old male with PMH of CVA with RHP, HTN, DM2, SCZ, Dementia, Alcohol use D/o, Seizure D/O, presents to the emergency department via EMS from home with progressive SOB and impending espiratory failure with an unresponsive episode. Apparently the patient was witnessed becoming unresponsive by family members. Reportedly, pt had just gotten a high dose of Hyoscamine When EMS got there, the patient was agonal breathing and had a faint pulse. No CPR was indicated per EMS. PT was intubated and received some IV fluid en route to the hospital. He was admitted for sepsis, b/l PNA, acute respiratory failure. Patient was tested positive for COVID19. Evaluated by ID , received antibiotics Plaquenil, and inflammatory markers were checked and followed. Patient continues to be hypotensive currently on Levophed, unable to wean- remains intubated on ventilatory support, critically ill, DNR status however family wants full treatment. Surgery evaluated recommend trach and PEG. need LTAC for discharge Physical exam: General appearance: Present: no acute distress, cachectic, other (On vent) - EENT Eyes: Present: PERRL, EOM intact - Neck Neck: Present: supple, normal ROM, other (trach tube) - Respiratory Respiratory effort: normal Respiratory: bilateral: diminished, negative: rales, rhonchi - Cardiovascular Rhythm: regular Heart Sounds: Present: S1 & S2 - Extremities Extremities: no ischemia, No edema - Abdominal General gastrointestinal: soft, non-tender, distended, PEG on place - Integumentary Integumentary: Present: clear, warm - Psychiatric Psychiatric: other (Intubated on trach) - Neurologic Neurologic: other (Intubated on trach) Subjective Date of service: 09/02/19 Principal diagnosis: Bilateral pneumonia, severe sepsis with septic shock, encephalopathy Interval history: Patient seen and examined. Medical records and medication list reviewed. No acute event overnight noted by the RN. Patient is now negative for COVID-19. Patient remains intubated with trach on mechanical ventilation Discussed plan of care at bedside with patient's RN. Objective - Constitutional Vitals: Vital Signs - 12hr 09/02/19 09/02/19 09/02/19 01:00 02:00 03:00 Temperature Pulse Rate 79 70 65 Pulse Rate [ From Monitor] Respiratory 18 13 15 Rate Blood Pressure 128/72 126/63 136/70 O2 Sat by Pulse 98 99 99 Oximetry O2 Sat by Pulse Oximetry [ Assessment] 09/02/19 09/02/19 09/02/19 03:19 04:00 05:00 Temperature 99.6 F Pulse Rate 65 66 75 Pulse Rate [ 70 From Monitor] Respiratory 18 19 Rate Blood Pressure 129/71 132/72 144/77 O2 Sat by Pulse 100 99 99 Oximetry O2 Sat by Pulse Oximetry [ Assessment] 09/02/19 09/02/19 09/02/19 06:00 07:00 08:00 Temperature 99.0 F Pulse Rate 70 71 83 Pulse Rate [ From Monitor] Respiratory 21 22 17 Rate Blood Pressure 136/72 136/70 142/74 O2 Sat by Pulse 99 99 100 Oximetry O2 Sat by Pulse Oximetry [ Assessment] 09/02/19 09/02/19 09/02/19 08:15 08:20 09:00 Temperature Pulse Rate 78 80 78 Pulse Rate [ From Monitor] Respiratory 25 H 19 Rate Blood Pressure 141/79 133/72 141/75 O2 Sat by Pulse 100 100 98 Oximetry O2 Sat by Pulse 100 Oximetry [ Assessment] 09/02/19 09/02/19 09/02/19 09:08 10:00 11:00 Temperature Pulse Rate 77 76 81 Pulse Rate [ From Monitor] Respiratory 16 12 Rate Blood Pressure 141/75 132/73 120/71 O2 Sat by Pulse 99 98 Oximetry O2 Sat by Pulse Oximetry [ Assessment] 09/02/19 11:47 Temperature Pulse Rate 77 Pulse Rate [ From Monitor] Respiratory 26 H Rate Blood Pressure 135/71 O2 Sat by Pulse 100 Oximetry O2 Sat by Pulse Oximetry [ Assessment] - Labs CBC & Chem 7: 08/30/19 05:10 09/01/19 14:50 Labs: Abnormal lab results 0609/01/19 09/01/19 Range/Units 11:43 14:50 14:50 ABG pO2 (80.0-90.0) mm Hg ABG Hemoglobin (14.0-18.0) gm/dl Sodium 133 L (137-145) mmol/L Creatinine 0.3 L (0.8-1.5) mg/dL Glucose 117 H (75-100) mg/dL POC Glucose 127 H (70-105) Magnesium 1.30 L (1.7-2.3) mg/dL 09/01/19 09/01/19 09/01/19 Range/Units 17:00 17:28 23:13 ABG pO2 116.0 H (80.0-90.0) mm Hg ABG Hemoglobin 12.2 L (14.0-18.0) gm/dl Sodium (137-145) mmol/L Creatinine (0.8-1.5) mg/dL Glucose (75-100) mg/dL POC Glucose 135 H 131 H (70-105) Magnesium (1.7-2.3) mg/dL 09/01/19 09/02/19 Range/Units 23:35 05:37 ABG pO2 (80.0-90.0) mm Hg ABG Hemoglobin (14.0-18.0) gm/dl Sodium (137-145) mmol/L Creatinine (0.8-1.5) mg/dL Glucose (75-100) mg/dL POC Glucose 110 H 129 H (70-105) Magnesium (1.7-2.3) mg/dL HEART Score - HEART Score Troponin: Troponin T 0.013 ng/mL (0.00-0.029) 07/04/19 07:05
--- NOTE | 2019-09-02 14:41 | Progress Note ---
Assessment and Plan Acute hypoxemic respiratory failure on MVS Severe sepsis with Shock. Bilateral Pneumonia. PUI coronavirus-19 infection. Acute possibly on chronic encephalopathy. Oropharyngeal dysphagia. Anemia. Decubitus ulcers Diabetes type 2. Hypertension. Leukocytosis. Anemia that is microcytic. Elevated serum transaminases. [id number] metabolic acidosis. Lactic acidosis. Severe protein-calorie malnutrition - continue bronchodilators with routine trach care & pulmonary hygiene per RT - continue low dose Reglan - t-piece trials shortly - no new issues otherwise, continue care as below otherwise - repeat COVID-19 negative - prn CXR's and ABG's at this point - continue care as below otherwise - continue fentanyl gtt for pain control / sedation - continue to wean supplemental oxygen for target O2 sat's > 90% acutely - continue daily SAT's and SBT assessment as tolerated - VAP bundle addressed - continue lung protective strategies - wean per pulmonary driven protocols otherwise - prn Levophed for target MAP > 65 mmHg - discontinued airborne and contact COVID-19 precautions - s/p anti-infectives and de-escalation per ID recommendations - continue wound care per WCT - sedation prn for target RASS 0 to -1 - accuchecks with glycemic control per SSI (While critically ill target blood glucose of 140-180 mg/dL; avoid hypoglycemia) - to avoid benzodiazepine's, reduce the possibility of delirium - prn analgesia per CPOT score - Maintenance of sleep-wake cycle, avoid delirium - continue enteral nutritional support at goal rate as tolerated - G.I. & VTE prophylaxis - PT/OT/ROM exercises - continue mobility protocols for pressure ulcer prophylaxis - Monitor hemodynamics closely - continue other care per attending / other consultants - discharge planning ongoing concurrently .... Re-evaluate in am & prn CONDITION: CRITICAL PROGNOSIS: GUARDED CODE STATUS: FULL CODE The high probability of a clinically significant, sudden or life-threatening deterioration of the [respiratory & cardiovascular] system(s) required my full and direct attention, intervention and personal management. The aggregate critical care time was [34] minutes without overlap. Time includes spent on; [x] Data Review and interpretation [x] Patient assessment and monitoring of vital signs [x] Documentation [x] Medication orders and management Subjective Date of service: 09/02/19 Principal diagnosis: Bilateral pneumonia, severe sepsis with septic shock, encephalopathy Interval history: Patient is seen today for: Ac hypoxemic Resp failure on MVS; Severe sepsis with Shock; Ivan. Pneumonia; PUI coronavirus-19 infection. Seen and examined at bedside; 24hour events reviewed; nursing and respiratory care staff consulted; no adverse overnight events reported to me; resting in bed; remains on MVS; s/p trach; tolerating PSV trials; AMs is persistent; no new issues otherwise Objective Vital Signs - 12hr 09/02/19 09/02/19 09/02/19 03:00 03:19 04:00 Temperature 99.6 F Pulse Rate 65 65 66 Pulse Rate [ 70 From Monitor] Respiratory 15 18 Rate Blood Pressure 136/70 129/71 132/72 O2 Sat by Pulse 99 100 99 Oximetry O2 Sat by Pulse Oximetry [ Assessment] 09/02/19 09/02/19 09/02/19 05:00 06:00 07:00 Temperature Pulse Rate 75 70 71 Pulse Rate [ From Monitor] Respiratory 19 21 22 Rate Blood Pressure 144/77 136/72 136/70 O2 Sat by Pulse 99 99 99 Oximetry O2 Sat by Pulse Oximetry [ Assessment] 09/02/19 09/02/19 09/02/19 08:00 08:15 08:20 Temperature 99.0 F Pulse Rate 83 78 80 Pulse Rate [ From Monitor] Respiratory 17 25 H Rate Blood Pressure 142/74 141/79 133/72 O2 Sat by Pulse 100 100 100 Oximetry O2 Sat by Pulse 100 Oximetry [ Assessment] 09/02/19 09/02/19 09/02/19 09:00 09:08 10:00 Temperature Pulse Rate 78 77 76 Pulse Rate [ From Monitor] Respiratory 19 16 Rate Blood Pressure 141/75 141/75 132/73 O2 Sat by Pulse 98 99 Oximetry O2 Sat by Pulse Oximetry [ Assessment] 09/02/19 09/02/19 09/02/19 11:00 11:47 12:00 Temperature 101.4 F H Pulse Rate 81 77 Pulse Rate [ From Monitor] Respiratory 12 26 H Rate Blood Pressure 120/71 135/71 O2 Sat by Pulse 98 100 Oximetry O2 Sat by Pulse Oximetry [ Assessment] Constitutional: appears uncomfortable, other (eelderly and chronically ill looking AAM, normocep[krystina;ic with mildly increased respiratory effort at rest) Eyes: non-icteric ENT: oropharynx moist Neck: supple, no lymphadenopathy, no JVD, other (+ midline tracheostomy tube) Effort: mildly labored Ascultation: Bilateral: diminished breath sounds, rhonchi Percussion: Bilateral: not dull Cardiovascular: regular rate and rhythm Gastrointestinal: normoactive bowel sounds, soft, non-tender, non-distended, oth er (+ PEG tube with mild TF leakage) Integumentary: decubitus ulcer (sacral) Extremities: no cyanosis, no edema, pink and warm, pulses normal Neurologic: pupils equal and round, unable to assess Psychiatric: other (Unable to assess re: AMS) CBC and BMP: 09/06/19 04:32 09/06/19 03:45 ABG, PT/INR, D-dimer: ABG ABG pH 7.407 pH Units (7.350-7.450) 09/01/19 17:00 ABG pCO2 40.4 mm Hg 09/01/19 17:00 ABG pO2 116.0 mm Hg (80.0-90.0) H 09/01/19 17:00 ABG O2 Saturation 98.2 % (95.0-99.0) 09/01/19 17:00 PT/INR, D-dimer PT 16.0 Sec. (12.2-14.9) H 07/03/19 22:20 INR 1.26 (0.87-1.13) H 07/03/19 22:20 D-Dimer 1808.06 ng/mlDDU (0-234) H 08/07/19 10:24 Abnormal lab findings: Abnormal Labs 07/03/19 07/03/19 07/03/19 19:57 21:10 21:13 WBC RBC Hgb Hct MCV MCH MCHC RDW Plt Count Lymph % (Auto) Charles % (Auto) Lymph # Charles # Baso # Seg Neutrophils % Seg Neuts % (Manual) Lymphocytes % (Manual) Monocytes % (Manual) Basophils % (Manual) Nucleated RBC % Seg Neutrophils # Seg Neutrophils # Man Lymphocytes # (Manual) Monocytes # (Manual) Eosinophils # (Manual) Basophils # (Manual) PT INR D-Dimer ABG pH 7.238 L ABG pO2 210.8 H ABG HCO3 15.4 L ABG O2 Saturation 99.2 H ABG Base Excess -11.1 L ABG Hemoglobin 8.0 L Oxyhemoglobin Sodium 124 L Potassium Chloride 92.9 L Carbon Dioxide 10 L BUN 23 H Creatinine 0.5 L Glucose 118 H POC Glucose Lactic Acid Calcium 7.0 L Magnesium Iron TIBC Ferritin AST 70 H ALT 88 H Lactate Dehydrogenase Troponin T 0.032 H C-Reactive Protein Total Protein 5.0 L Albumin 1.8 L Prealbumin Cholesterol 47 L LDL Cholesterol Direct 25 L HDL Cholesterol 20 L Urine WBC (Auto) 12.0 H Vancomycin Trough Coronavirus (PCR) Crossmatch 07/03/19 07/03/19 07/03/19 22:20 22:20 22:20 WBC 30.5 H RBC 2.96 L Hgb 7.7 L Hct 23.9 L MCV 81 L MCH 26 L MCHC RDW 18.6 H Plt Count 459 H Lymph % (Auto) Charles % (Auto) Lymph # Charles # Baso # Seg Neutrophils % Seg Neuts % (Manual) 93.0 H Lymphocytes % (Manual) 0.5 L Monocytes % (Manual) Basophils % (Manual) Nucleated RBC % Seg Neutrophils # Seg Neutrophils # Man 28.4 H Lymphocytes # (Manual) 0.2 L Monocytes # (Manual) Eosinophils # (Manual) Basophils # (Manual) PT 16.0 H INR 1.26 H D-Dimer ABG pH ABG pO2 ABG HCO3 ABG O2 Saturation ABG Base Excess ABG Hemoglobin Oxyhemoglobin Sodium Potassium Chloride Carbon Dioxide BUN Creatinine Glucose POC Glucose Lactic Acid 6.90 H* Calcium Magnesium Iron TIBC Ferritin AST ALT Lactate Dehydrogenase Troponin T C-Reactive Protein Total Protein Albumin Prealbumin Cholesterol LDL Cholesterol Direct HDL Cholesterol Urine WBC (Auto) Vancomycin Trough Coronavirus (PCR) Crossmatch 07/03/19 07/04/19 07/04/19 23:58 05:15 07:05 WBC 17.1 H RBC 3.22 L Hgb 8.3 L Hct 25.4 L MCV 79 L MCH 26 L MCHC RDW 18.6 H Plt Count Lymph % (Auto) Charles % (Auto) Lymph # Charles # Baso # Seg Neutrophils % Seg Neuts % (Manual) 74.0 H Lymphocytes % (Manual) 0 L Monocytes % (Manual) Basophils % (Manual) Nucleated RBC % Seg Neutrophils # Seg Neutrophils # Man 12.7 H Lymphocytes # (Manual) 0.0 L Monocytes # (Manual) Eosinophils # (Manual) Basophils # (Manual) PT INR D-Dimer ABG pH 7.310 L ABG pO2 73.2 L ABG HCO3 17.8 L ABG O2 Saturation 93.8 L ABG Base Excess -7.7 L ABG Hemoglobin 9.6 L Oxyhemoglobin 92.3 L Sodium Potassium Chloride Carbon Dioxide BUN Creatinine Glucose POC Glucose Lactic Acid 7.10 H* Calcium Magnesium Iron TIBC Ferritin AST ALT Lactate Dehydrogenase Troponin T C-Reactive Protein Total Protein Albumin Prealbumin Cholesterol LDL Cholesterol Direct HDL Cholesterol Urine WBC (Auto) Vancomycin Trough Coronavirus (PCR) Crossmatch 07/04/19 07/04/19 07/04/19 07:05 07:05 07:05 WBC RBC Hgb Hct MCV MCH MCHC RDW Plt Count Lymph % (Auto) Charles % (Auto) Lymph # Charles # Baso # Seg Neutrophils % Seg Neuts % (Manual) Lymphocytes % (Manual) Monocytes % (Manual) Basophils % (Manual) Nucleated RBC % Seg Neutrophils # Seg Neutrophils # Man Lymphocytes # (Manual) Monocytes # (Manual) Eosinophils # (Manual) Basophils # (Manual) PT INR D-Dimer ABG pH ABG pO2 ABG HCO3 ABG O2 Saturation ABG Base Excess ABG Hemoglobin Oxyhemoglobin Sodium 120 L Potassium 5.1 H Chloride 90.0 L Carbon Dioxide 14 L BUN 26 H Creatinine 0.5 L Glucose POC Glucose Lactic Acid 3.30 H* Calcium 8.0 L Magnesium Iron 9 L TIBC 97 L Ferritin AST 73 H ALT 91 H Lactate Dehydrogenase Troponin T C-Reactive Protein Total Protein 5.5 L Albumin 2.0 L Prealbumin Cholesterol LDL Cholesterol Direct HDL Cholesterol Urine WBC (Auto) Vancomycin Trough Coronavirus (PCR) Crossmatch 07/04/19 07/04/19 07/04/19 09:39 09:39 09:39 WBC RBC Hgb Hct MCV MCH MCHC RDW Plt Count Lymph % (Auto) Charles % (Auto) Lymph # Charles # Baso # Seg Neutrophils % Seg Neuts % (Manual) Lymphocytes % (Manual) Monocytes % (Manual) Basophils % (Manual) Nucleated RBC % Seg Neutrophils # Seg Neutrophils # Man Lymphocytes # (Manual) Monocytes # (Manual) Eosinophils # (Manual) Basophils # (Manual) PT INR D-Dimer 1419.14 H ABG pH ABG pO2 ABG HCO3 ABG O2 Saturation ABG Base Excess ABG Hemoglobin Oxyhemoglobin Sodium Potassium Chloride Carbon Dioxide BUN Creatinine Glucose POC Glucose Lactic Acid Calcium Magnesium Iron TIBC Ferritin 1719.0 H AST ALT Lactate Dehydrogenase 234 H Troponin T C-Reactive Protein 15.50 H Total Protein Albumin Prealbumin Cholesterol LDL Cholesterol Direct HDL Cholesterol Urine WBC (Auto) Vancomycin Trough Coronavirus (PCR) Crossmatch 07/04/19 07/04/19 07/04/19 10:09 18:08 18:28 WBC RBC Hgb Hct MCV MCH MCHC RDW Plt Count Lymph % (Auto) Charles % (Auto) Lymph # Charles # Baso # Seg Neutrophils % Seg Neuts % (Manual) Lymphocytes % (Manual) Monocytes % (Manual) Basophils % (Manual) Nucleated RBC % Seg Neutrophils # Seg Neutrophils # Man Lymphocytes # (Manual) Monocytes # (Manual) Eosinophils # (Manual) Basophils # (Manual) PT INR D-Dimer ABG pH ABG pO2 ABG HCO3 ABG O2 Saturation ABG Base Excess ABG Hemoglobin Oxyhemoglobin Sodium 117 L* Potassium 5.6 H Chloride 90.3 L Carbon Dioxide 16 L BUN 28 H Creatinine 0.5 L Glucose 58 L POC Glucose 65 L Lactic Acid Calcium 8.2 L Magnesium Iron TIBC Ferritin AST ALT Lactate Dehydrogenase Troponin T C-Reactive Protein Total Protein Albumin Prealbumin Cholesterol LDL Cholesterol Direct HDL Cholesterol Urine WBC (Auto) Vancomycin Trough Coronavirus (PCR) Positive A Crossmatch 07/04/19 07/04/19 07/04/19 23:45 Unknown Unknown WBC RBC Hgb Hct MCV MCH MCHC RDW Plt Count Lymph % (Auto) Charles % (Auto) Lymph # Charles # Baso # Seg Neutrophils % Seg Neuts % (Manual) Lymphocytes % (Manual) Monocytes % (Manual) Basophils % (Manual) Nucleated RBC % Seg Neutrophils # Seg Neutrophils # Man Lymphocytes # (Manual) Monocytes # (Manual) Eosinophils # (Manual) Basophils # (Manual) PT INR D-Dimer 759.77 H ABG pH ABG pO2 ABG HCO3 ABG O2 Saturation ABG Base Excess ABG Hemoglobin Oxyhemoglobin Sodium 122 L Potassium Chloride 93.0 L Carbon Dioxide 19 L BUN 27 H Creatinine 0.5 L Glucose POC Glucose Lactic Acid Calcium 8.3 L Magnesium Iron TIBC Ferritin 1301.0 H AST ALT Lactate Dehydrogenase Troponin T C-Reactive Protein Total Protein Albumin Prealbumin Cholesterol LDL Cholesterol Direct HDL Cholesterol Urine WBC (Auto) Vancomycin Trough Coronavirus (PCR) Crossmatch 07/04/19 07/05/19 07/05/19 Unknown 03:20 04:00 WBC RBC Hgb Hct MCV MCH MCHC RDW Plt Count Lymph % (Auto) Charles % (Auto) Lymph # Charles # Baso # Seg Neutrophils % Seg Neuts % (Manual) Lymphocytes % (Manual) Monocytes % (Manual) Basophils % (Manual) Nucleated RBC % Seg Neutrophils # Seg Neutrophils # Man Lymphocytes # (Manual) Monocytes # (Manual) Eosinophils # (Manual) Basophils # (Manual) PT INR D-Dimer ABG pH ABG pO2 60.6 L ABG HCO3 ABG O2 Saturation 93.5 L ABG Base Excess -2.4 L ABG Hemoglobin 6.9 L Oxyhemoglobin 92.0 L Sodium 125 L Potassium Chloride 92.6 L Carbon Dioxide 19 L BUN 24 H Creatinine 0.6 L Glucose POC Glucose Lactic Acid Calcium 8.2 L Magnesium 1.40 L Iron TIBC Ferritin AST ALT Lactate Dehydrogenase 242 H Troponin T C-Reactive Protein 16.70 H Total Protein Albumin Prealbumin Cholesterol LDL Cholesterol Direct HDL Cholesterol Urine WBC (Auto) Vancomycin Trough Coronavirus (PCR) Crossmatch 07/05/19 07/05/19 07/05/19 10:11 16:15 17:54 WBC 46.4 H* RBC 2.77 L Hgb 7.2 L Hct 21.9 L MCV 79 L MCH 26 L MCHC RDW 19.0 H Plt Count Lymph % (Auto) Charles % (Auto) Lymph # Charles # Baso # Seg Neutrophils % Seg Neuts % (Manual) 82.0 H Lymphocytes % (Manual) 1.0 L Monocytes % (Manual) Basophils % (Manual) Nucleated RBC % Seg Neutrophils # Seg Neutrophils # Man 38.0 H Lymphocytes # (Manual) 0.5 L Monocytes # (Manual) Eosinophils # (Manual) Basophils # (Manual) PT INR D-Dimer ABG pH ABG pO2 ABG HCO3 ABG O2 Saturation ABG Base Excess ABG Hemoglobin Oxyhemoglobin Sodium Potassium Chloride Carbon Dioxide BUN Creatinine Glucose POC Glucose 69 L Lactic Acid Calcium Magnesium Iron TIBC Ferritin AST ALT Lactate Dehydrogenase Troponin T C-Reactive Protein Total Protein Albumin Prealbumin Cholesterol LDL Cholesterol Direct HDL Cholesterol Urine WBC (Auto) Vancomycin Trough 23.2 H Coronavirus (PCR) Crossmatch 07/05/19 07/06/19 07/06/19 19:58 00:27 00:27 WBC RBC Hgb Hct MCV MCH MCHC RDW Plt Count Lymph % (Auto) Charles % (Auto) Lymph # Charles # Baso # Seg Neutrophils % Seg Neuts % (Manual) Lymphocytes % (Manual) Monocytes % (Manual) Basophils % (Manual) Nucleated RBC % Seg Neutrophils # Seg Neutrophils # Man Lymphocytes # (Manual) Monocytes # (Manual) Eosinophils # (Manual) Basophils # (Manual) PT INR D-Dimer 1333.22 H ABG pH ABG pO2 ABG HCO3 ABG O2 Saturation ABG Base Excess ABG Hemoglobin Oxyhemoglobin Sodium 127 L Potassium Chloride Carbon Dioxide BUN Creatinine Glucose POC Glucose Lactic Acid Calcium Magnesium Iron TIBC Ferritin 977.1 H AST ALT Lactate Dehydrogenase Troponin T C-Reactive Protein Total Protein Albumin Prealbumin Cholesterol LDL Cholesterol Direct HDL Cholesterol Urine WBC (Auto) Vancomycin Trough Coronavirus (PCR) Crossmatch 07/06/19 07/06/19 07/06/19 00:27 02:00 02:56 WBC RBC Hgb Hct MCV MCH MCHC RDW Plt Count Lymph % (Auto) Charles % (Auto) Lymph # Charles # Baso # Seg Neutrophils % Seg Neuts % (Manual) Lymphocytes % (Manual) Monocytes % (Manual) Basophils % (Manual) Nucleated RBC % Seg Neutrophils # Seg Neutrophils # Man Lymphocytes # (Manual) Monocytes # (Manual) Eosinophils # (Manual) Basophils # (Manual) PT INR D-Dimer ABG pH ABG pO2 70.3 L ABG HCO3 ABG O2 Saturation 94.8 L ABG Base Excess ABG Hemoglobin 8.0 L Oxyhemoglobin 93.2 L Sodium Potassium Chloride Carbon Dioxide BUN Creatinine Glucose POC Glucose 117 H Lactic Acid Calcium Magnesium Iron TIBC Ferritin AST ALT Lactate Dehydrogenase 236 H Troponin T C-Reactive Protein 22.90 H Total Protein Albumin Prealbumin Cholesterol LDL Cholesterol Direct HDL Cholesterol Urine WBC (Auto) Vancomycin Trough Coronavirus (PCR) Crossmatch 07/06/19 07/06/19 07/06/19 03:49 03:49 07:40 WBC 38.8 H RBC 2.51 L Hgb 6.7 L Hct 19.9 L* MCV 79 L MCH 27 L MCHC RDW 19.2 H Plt Count Lymph % (Auto) Charles % (Auto) Lymph # Charles # Baso # Seg Neutrophils % Seg Neuts % (Manual) 90.5 H Lymphocytes % (Manual) 1.0 L Monocytes % (Manual) Basophils % (Manual) Nucleated RBC % Seg Neutrophils # Seg Neutrophils # Man 35.1 H Lymphocytes # (Manual) 0.4 L Monocytes # (Manual) Eosinophils # (Manual) Basophils # (Manual) PT INR D-Dimer ABG pH ABG pO2 ABG HCO3 ABG O2 Saturation ABG Base Excess ABG Hemoglobin Oxyhemoglobin Sodium 131 L Potassium Chloride 96.9 L Carbon Dioxide 18 L BUN 23 H Creatinine 0.5 L Glucose POC Glucose Lactic Acid Calcium 8.0 L Magnesium Iron TIBC Ferritin AST ALT Lactate Dehydrogenase Troponin T C-Reactive Protein Total Protein Albumin Prealbumin Cholesterol LDL Cholesterol Direct HDL Cholesterol Urine WBC (Auto) Vancomycin Trough Coronavirus (PCR) Crossmatch See Detail 07/06/19 07/06/19 07/06/19 12:38 14:39 20:00 WBC RBC Hgb Hct MCV MCH MCHC RDW Plt Count Lymph % (Auto) Charles % (Auto) Lymph # Charles # Baso # Seg Neutrophils % Seg Neuts % (Manual) Lymphocytes % (Manual) Monocytes % (Manual) Basophils % (Manual) Nucleated RBC % Seg Neutrophils # Seg Neutrophils # Man Lymphocytes # (Manual) Monocytes # (Manual) Eosinophils # (Manual) Basophils # (Manual) PT INR D-Dimer ABG pH ABG pO2 ABG HCO3 ABG O2 Saturation ABG Base Excess ABG Hemoglobin Oxyhemoglobin Sodium Potassium Chloride Carbon Dioxide BUN Creatinine Glucose POC Glucose 112 H 111 H 140 H Lactic Acid Calcium Magnesium Iron TIBC Ferritin AST ALT Lactate Dehydrogenase Troponin T C-Reactive Protein Total Protein Albumin Prealbumin Cholesterol LDL Cholesterol Direct HDL Cholesterol Urine WBC (Auto) Vancomycin Trough Coronavirus (PCR) Crossmatch 07/06/19 07/06/19 07/07/19 22:43 22:56 02:20 WBC RBC Hgb 7.9 L Hct 23.1 L MCV MCH MCHC RDW Plt Count Lymph % (Auto) Charles % (Auto) Lymph # Charles # Baso # Seg Neutrophils % Seg Neuts % (Manual) Lymphocytes % (Manual) Monocytes % (Manual) Basophils % (Manual) Nucleated RBC % Seg Neutrophils # Seg Neutrophils # Man Lymphocytes # (Manual) Monocytes # (Manual) Eosinophils # (Manual) Basophils # (Manual) PT INR D-Dimer ABG pH ABG pO2 ABG HCO3 ABG O2 Saturation ABG Base Excess ABG Hemoglobin Oxyhemoglobin Sodium Potassium Chloride Carbon Dioxide BUN Creatinine Glucose POC Glucose 122 H 149 H Lactic Acid Calcium Magnesium Iron TIBC Ferritin AST ALT Lactate Dehydrogenase Troponin T C-Reactive Protein Total Protein Albumin Prealbumin Cholesterol LDL Cholesterol Direct HDL Cholesterol Urine WBC (Auto) Vancomycin Trough Coronavirus (PCR) Crossmatch 07/07/19 07/07/19 07/07/19 04:35 05:27 05:34 WBC 23.1 H RBC 3.00 L Hgb 8.1 L Hct 24.2 L MCV 81 L MCH 27 L MCHC RDW 20.6 H Plt Count Lymph % (Auto) Charles % (Auto) Lymph # Charles # Baso # Seg Neutrophils % Seg Neuts % (Manual) 90.0 H Lymphocytes % (Manual) 2.0 L Monocytes % (Manual) Basophils % (Manual) Nucleated RBC % Seg Neutrophils # Seg Neutrophils # Man 20.8 H Lymphocytes # (Manual) 0.5 L Monocytes # (Manual) Eosinophils # (Manual) Basophils # (Manual) PT INR D-Dimer ABG pH ABG pO2 65.8 L ABG HCO3 ABG O2 Saturation 92.2 L ABG Base Excess ABG Hemoglobin 8.3 L Oxyhemoglobin 90.6 L Sodium Potassium Chloride Carbon Dioxide BUN Creatinine Glucose POC Glucose 132 H Lactic Acid Calcium Magnesium Iron TIBC Ferritin AST ALT Lactate Dehydrogenase Troponin T C-Reactive Protein Total Protein Albumin Prealbumin Cholesterol LDL Cholesterol Direct HDL Cholesterol Urine WBC (Auto) Vancomycin Trough Coronavirus (PCR) Crossmatch 07/07/19 07/07/19 07/07/19 05:34 11:50 15:58 WBC RBC Hgb 8.1 L Hct 24.2 L MCV MCH MCHC RDW Plt Count Lymph % (Auto) Charles % (Auto) Lymph # Charles # Baso # Seg Neutrophils % Seg Neuts % (Manual) Lymphocytes % (Manual) Monocytes % (Manual) Basophils % (Manual) Nucleated RBC % Seg Neutrophils # Seg Neutrophils # Man Lymphocytes # (Manual) Monocytes # (Manual) Eosinophils # (Manual) Basophils # (Manual) PT INR D-Dimer ABG pH ABG pO2 ABG HCO3 ABG O2 Saturation ABG Base Excess ABG Hemoglobin Oxyhemoglobin Sodium 135 L Potassium 3.3 L Chloride Carbon Dioxide 20 L BUN 27 H Creatinine 0.6 L Glucose 121 H POC Glucose 123 H Lactic Acid Calcium 8.0 L Magnesium Iron TIBC Ferritin AST ALT Lactate Dehydrogenase Troponin T C-Reactive Protein Total Protein Albumin Prealbumin Cholesterol LDL Cholesterol Direct HDL Cholesterol Urine WBC (Auto) Vancomycin Trough Coronavirus (PCR) Crossmatch 07/07/19 07/07/19 07/07/19 17:42 22:00 23:53 WBC RBC Hgb 8.0 L Hct 23.4 L MCV MCH MCHC RDW Plt Count Lymph % (Auto) Charles % (Auto) Lymph # Charles # Baso # Seg Neutrophils % Seg Neuts % (Manual) Lymphocytes % (Manual) Monocytes % (Manual) Basophils % (Manual) Nucleated RBC % Seg Neutrophils # Seg Neutrophils # Man Lymphocytes # (Manual) Monocytes # (Manual) Eosinophils # (Manual) Basophils # (Manual) PT INR D-Dimer ABG pH ABG pO2 ABG HCO3 ABG O2 Saturation ABG Base Excess ABG Hemoglobin Oxyhemoglobin Sodium Potassium Chloride Carbon Dioxide BUN Creatinine Glucose POC Glucose 107 H 117 H Lactic Acid Calcium Magnesium Iron TIBC Ferritin AST ALT Lactate Dehydrogenase Troponin T C-Reactive Protein Total Protein Albumin Prealbumin Cholesterol LDL Cholesterol Direct HDL Cholesterol Urine WBC (Auto) Vancomycin Trough Coronavirus (PCR) Crossmatch 07/08/19 07/08/19 07/08/19 00:45 00:45 00:45 WBC RBC Hgb Hct MCV MCH MCHC RDW Plt Count Lymph % (Auto) Charles % (Auto) Lymph # Charles # Baso # Seg Neutrophils % Seg Neuts % (Manual) Lymphocytes % (Manual) Monocytes % (Manual) Basophils % (Manual) Nucleated RBC % Seg Neutrophils # Seg Neutrophils # Man Lymphocytes # (Manual) Monocytes # (Manual) Eosinophils # (Manual) Basophils # (Manual) PT INR D-Dimer 1142.18 H ABG pH ABG pO2 ABG HCO3 ABG O2 Saturation ABG Base Excess ABG Hemoglobin Oxyhemoglobin Sodium Potassium Chloride Carbon Dioxide BUN Creatinine Glucose POC Glucose Lactic Acid Calcium Magnesium Iron TIBC Ferritin 839.0 H AST ALT Lactate Dehydrogenase 253 H Troponin T C-Reactive Protein 18.90 H Total Protein Albumin Prealbumin Cholesterol LDL Cholesterol Direct HDL Cholesterol Urine WBC (Auto) Vancomycin Trough Coronavirus (PCR) Crossmatch 07/08/19 07/08/19 07/08/19 04:30 05:11 12:02 WBC RBC Hgb Hct MCV MCH MCHC RDW Plt Count Lymph % (Auto) Charles % (Auto) Lymph # Charles # Baso # Seg Neutrophils % Seg Neuts % (Manual) Lymphocytes % (Manual) Monocytes % (Manual) Basophils % (Manual) Nucleated RBC % Seg Neutrophils # Seg Neutrophils # Man Lymphocytes # (Manual) Monocytes # (Manual) Eosinophils # (Manual) Basophils # (Manual) PT INR D-Dimer ABG pH ABG pO2 66.0 L ABG HCO3 ABG O2 Saturation 92.3 L ABG Base Excess ABG Hemoglobin 7.7 L Oxyhemoglobin 90.7 L Sodium Potassium Chloride Carbon Dioxide BUN Creatinine Glucose POC Glucose 108 H 153 H Lactic Acid Calcium Magnesium Iron TIBC Ferritin AST ALT Lactate Dehydrogenase Troponin T C-Reactive Protein Total Protein Albumin Prealbumin Cholesterol LDL Cholesterol Direct HDL Cholesterol Urine WBC (Auto) Vancomycin Trough Coronavirus (PCR) Crossmatch 07/08/19 07/08/19 07/08/19 16:15 18:22 23:35 WBC RBC Hgb Hct MCV MCH MCHC RDW Plt Count Lymph % (Auto) Charles % (Auto) Lymph # Charles # Baso # Seg Neutrophils % Seg Neuts % (Manual) Lymphocytes % (Manual) Monocytes % (Manual) Basophils % (Manual) Nucleated RBC % Seg Neutrophils # Seg Neutrophils # Man Lymphocytes # (Manual) Monocytes # (Manual) Eosinophils # (Manual) Basophils # (Manual) PT INR D-Dimer ABG pH ABG pO2 ABG HCO3 ABG O2 Saturation ABG Base Excess ABG Hemoglobin Oxyhemoglobin Sodium 134 L Potassium 3.3 L Chloride Carbon Dioxide 21 L BUN 27 H Creatinine 0.6 L Glucose 146 H POC Glucose 134 H 133 H Lactic Acid Calcium Magnesium Iron TIBC Ferritin AST ALT Lactate Dehydrogenase Troponin T C-Reactive Protein Total Protein Albumin Prealbumin Cholesterol LDL Cholesterol Direct HDL Cholesterol Urine WBC (Auto) Vancomycin Trough Coronavirus (PCR) Crossmatch 07/09/19 07/09/19 07/09/19 04:30 04:30 05:00 WBC 18.9 H RBC 2.77 L Hgb 7.4 L Hct 22.8 L MCV 82 L MCH 27 L MCHC RDW 20.9 H Plt Count 130 L Lymph % (Auto) Charles % (Auto) Lymph # Charles # Baso # Seg Neutrophils % Seg Neuts % (Manual) 84.0 H Lymphocytes % (Manual) 0 L Monocytes % (Manual) Basophils % (Manual) Nucleated RBC % Seg Neutrophils # Seg Neutrophils # Man 15.9 H Lymphocytes # (Manual) 0.0 L Monocytes # (Manual) Eosinophils # (Manual) Basophils # (Manual) PT INR D-Dimer ABG pH ABG pO2 ABG HCO3 ABG O2 Saturation ABG Base Excess ABG Hemoglobin Oxyhemoglobin Sodium Potassium 3.1 L Chloride Carbon Dioxide BUN 26 H Creatinine 0.5 L Glucose 125 H POC Glucose 155 H Lactic Acid Calcium Magnesium Iron TIBC Ferritin AST ALT Lactate Dehydrogenase Troponin T C-Reactive Protein Total Protein Albumin Prealbumin Cholesterol LDL Cholesterol Direct HDL Cholesterol Urine WBC (Auto) Vancomycin Trough Coronavirus (PCR) Crossmatch 07/09/19 07/09/19 07/09/19 05:55 12:22 17:50 WBC RBC Hgb Hct MCV MCH MCHC RDW Plt Count Lymph % (Auto) Charles % (Auto) Lymph # Charles # Baso # Seg Neutrophils % Seg Neuts % (Manual) Lymphocytes % (Manual) Monocytes % (Manual) Basophils % (Manual) Nucleated RBC % Seg Neutrophils # Seg Neutrophils # Man Lymphocytes # (Manual) Monocytes # (Manual) Eosinophils # (Manual) Basophils # (Manual) PT INR D-Dimer ABG pH ABG pO2 62.8 L ABG HCO3 ABG O2 Saturation ABG Base Excess ABG Hemoglobin 6.1 L Oxyhemoglobin 93.9 L Sodium Potassium Chloride Carbon Dioxide BUN Creatinine Glucose POC Glucose 115 H 133 H Lactic Acid Calcium Magnesium Iron TIBC Ferritin AST ALT Lactate Dehydrogenase Troponin T C-Reactive Protein Total Protein Albumin Prealbumin Cholesterol LDL Cholesterol Direct HDL Cholesterol Urine WBC (Auto) Vancomycin Trough Coronavirus (PCR) Crossmatch 07/10/19 07/10/19 07/10/19 00:38 04:00 04:00 WBC RBC Hgb Hct MCV MCH MCHC RDW Plt Count Lymph % (Auto) Charles % (Auto) Lymph # Charles # Baso # Seg Neutrophils % Seg Neuts % (Manual) Lymphocytes % (Manual) Monocytes % (Manual) Basophils % (Manual) Nucleated RBC % Seg Neutrophils # Seg Neutrophils # Man Lymphocytes # (Manual) Monocytes # (Manual) Eosinophils # (Manual) Basophils # (Manual) PT INR D-Dimer ABG pH ABG pO2 ABG HCO3 ABG O2 Saturation ABG Base Excess ABG Hemoglobin Oxyhemoglobin Sodium Potassium Chloride 107.9 H Carbon Dioxide BUN 26 H Creatinine 0.4 L Glucose 137 H POC Glucose 122 H Lactic Acid Calcium Magnesium 1.50 L Iron TIBC Ferritin AST ALT Lactate Dehydrogenase 277 H Troponin T C-Reactive Protein 15.10 H Total Protein Albumin Prealbumin Cholesterol LDL Cholesterol Direct HDL Cholesterol Urine WBC (Auto) Vancomycin Trough Coronavirus (PCR) Crossmatch 07/10/19 07/10/19 07/10/19 04:07 05:21 17:25 WBC RBC Hgb Hct MCV MCH MCHC RDW Plt Count Lymph % (Auto) Charles % (Auto) Lymph # Charles # Baso # Seg Neutrophils % Seg Neuts % (Manual) Lymphocytes % (Manual) Monocytes % (Manual) Basophils % (Manual) Nucleated RBC % Seg Neutrophils # Seg Neutrophils # Man Lymphocytes # (Manual) Monocytes # (Manual) Eosinophils # (Manual) Basophils # (Manual) PT INR D-Dimer ABG pH ABG pO2 65.6 L ABG HCO3 26.3 H ABG O2 Saturation ABG Base Excess ABG Hemoglobin 6.7 L Oxyhemoglobin Sodium Potassium Chloride Carbon Dioxide BUN Creatinine Glucose POC Glucose 144 H 113 H Lactic Acid Calcium Magnesium Iron TIBC Ferritin AST ALT Lactate Dehydrogenase Troponin T C-Reactive Protein Total Protein Albumin Prealbumin Cholesterol LDL Cholesterol Direct HDL Cholesterol Urine WBC (Auto) Vancomycin Trough Coronavirus (PCR) Crossmatch 07/11/19 07/11/19 07/11/19 00:07 05:14 05:25 WBC RBC Hgb Hct MCV MCH MCHC RDW Plt Count Lymph % (Auto) Charles % (Auto) Lymph # Charles # Baso # Seg Neutrophils % Seg Neuts % (Manual) Lymphocytes % (Manual) Monocytes % (Manual) Basophils % (Manual) Nucleated RBC % Seg Neutrophils # Seg Neutrophils # Man Lymphocytes # (Manual) Monocytes # (Manual) Eosinophils # (Manual) Basophils # (Manual) PT INR D-Dimer ABG pH ABG pO2 ABG HCO3 ABG O2 Saturation ABG Base Excess ABG Hemoglobin 5.8 L Oxyhemoglobin Sodium Potassium Chloride 108.0 H Carbon Dioxide BUN 26 H Creatinine 0.4 L Glucose 110 H POC Glucose 121 H Lactic Acid Calcium Magnesium Iron TIBC Ferritin AST ALT Lactate Dehydrogenase Troponin T C-Reactive Protein Total Protein Albumin Prealbumin Cholesterol LDL Cholesterol Direct HDL Cholesterol Urine WBC (Auto) Vancomycin Trough Coronavirus (PCR) Crossmatch 07/11/19 07/11/19 07/11/19 12:27 18:00 23:42 WBC RBC Hgb Hct MCV MCH MCHC RDW Plt Count Lymph % (Auto) Charles % (Auto) Lymph # Charles # Baso # Seg Neutrophils % Seg Neuts % (Manual) Lymphocytes % (Manual) Monocytes % (Manual) Basophils % (Manual) Nucleated RBC % Seg Neutrophils # Seg Neutrophils # Man Lymphocytes # (Manual) Monocytes # (Manual) Eosinophils # (Manual) Basophils # (Manual) PT INR D-Dimer ABG pH ABG pO2 ABG HCO3 ABG O2 Saturation ABG Base Excess ABG Hemoglobin Oxyhemoglobin Sodium Potassium Chloride Carbon Dioxide BUN Creatinine Glucose POC Glucose 158 H 141 H 142 H Lactic Acid Calcium Magnesium Iron TIBC Ferritin AST ALT Lactate Dehydrogenase Troponin T C-Reactive Protein Total Protein Albumin Prealbumin Cholesterol LDL Cholesterol Direct HDL Cholesterol Urine WBC (Auto) Vancomycin Trough Coronavirus (PCR) Crossmatch 07/12/19 07/12/19 07/12/19 04:46 04:46 05:23 WBC 23.6 H RBC 2.51 L Hgb 6.7 L Hct 20.8 L MCV 83 L MCH 27 L MCHC RDW 20.3 H Plt Count Lymph % (Auto) Charles % (Auto) Lymph # Charles # Baso # Seg Neutrophils % Seg Neuts % (Manual) 94.0 H Lymphocytes % (Manual) 4.0 L Monocytes % (Manual) Basophils % (Manual) Nucleated RBC % Seg Neutrophils # Seg Neutrophils # Man 22.2 H Lymphocytes # (Manual) 0.9 L Monocytes # (Manual) Eosinophils # (Manual) Basophils # (Manual) PT INR D-Dimer ABG pH ABG pO2 ABG HCO3 ABG O2 Saturation ABG Base Excess ABG Hemoglobin Oxyhemoglobin Sodium Potassium Chloride 107.1 H Carbon Dioxide BUN 25 H Creatinine 0.4 L Glucose 122 H POC Glucose 118 H Lactic Acid Calcium Magnesium Iron TIBC Ferritin AST ALT Lactate Dehydrogenase Troponin T C-Reactive Protein Total Protein Albumin Prealbumin Cholesterol LDL Cholesterol Direct HDL Cholesterol Urine WBC (Auto) Vancomycin Trough Coronavirus (PCR) Crossmatch 07/12/19 07/12/19 07/12/19 08:49 11:36 18:15 WBC RBC Hgb Hct MCV MCH MCHC RDW Plt Count Lymph % (Auto) Charles % (Auto) Lymph # Charles # Baso # Seg Neutrophils % Seg Neuts % (Manual) Lymphocytes % (Manual) Monocytes % (Manual) Basophils % (Manual) Nucleated RBC % Seg Neutrophils # Seg Neutrophils # Man Lymphocytes # (Manual) Monocytes # (Manual) Eosinophils # (Manual) Basophils # (Manual) PT INR D-Dimer ABG pH ABG pO2 ABG HCO3 ABG O2 Saturation ABG Base Excess ABG Hemoglobin Oxyhemoglobin Sodium Potassium Chloride Carbon Dioxide BUN Creatinine Glucose POC Glucose 124 H 110 H Lactic Acid Calcium Magnesium Iron TIBC Ferritin AST ALT Lactate Dehydrogenase Troponin T C-Reactive Protein Total Protein Albumin Prealbumin Cholesterol LDL Cholesterol Direct HDL Cholesterol Urine WBC (Auto) Vancomycin Trough Coronavirus (PCR) Crossmatch See Detail 07/12/19 07/13/19 07/13/19 23:16 05:26 06:50 WBC 23.9 H RBC 2.58 L Hgb 6.9 L Hct 21.5 L MCV 83 L MCH 27 L MCHC RDW 19.0 H Plt Count Lymph % (Auto) Charles % (Auto) Lymph # Charles # Baso # Seg Neutrophils % Seg Neuts % (Manual) 96.0 H Lymphocytes % (Manual) 3.0 L Monocytes % (Manual) Basophils % (Manual) Nucleated RBC % Seg Neutrophils # Seg Neutrophils # Man 22.9 H Lymphocytes # (Manual) 0.7 L Monocytes # (Manual) Eosinophils # (Manual) Basophils # (Manual) PT INR D-Dimer ABG pH ABG pO2 ABG HCO3 ABG O2 Saturation ABG Base Excess ABG Hemoglobin Oxyhemoglobin Sodium Potassium Chloride Carbon Dioxide BUN Creatinine Glucose POC Glucose 108 H 126 H Lactic Acid Calcium Magnesium Iron TIBC Ferritin AST ALT Lactate Dehydrogenase Troponin T C-Reactive Protein Total Protein Albumin Prealbumin Cholesterol LDL Cholesterol Direct HDL Cholesterol Urine WBC (Auto) Vancomycin Trough Coronavirus (PCR) Crossmatch 07/13/19 07/13/19 07/13/19 06:50 12:38 18:05 WBC RBC Hgb Hct MCV MCH MCHC RDW Plt Count Lymph % (Auto) Charles % (Auto) Lymph # Charles # Baso # Seg Neutrophils % Seg Neuts % (Manual) Lymphocytes % (Manual) Monocytes % (Manual) Basophils % (Manual) Nucleated RBC % Seg Neutrophils # Seg Neutrophils # Man Lymphocytes # (Manual) Monocytes # (Manual) Eosinophils # (Manual) Basophils # (Manual) PT INR D-Dimer ABG pH ABG pO2 ABG HCO3 ABG O2 Saturation ABG Base Excess ABG Hemoglobin Oxyhemoglobin Sodium Potassium Chloride Carbon Dioxide BUN 33 H Creatinine 0.5 L Glucose 136 H POC Glucose 164 H 145 H Lactic Acid Calcium Magnesium Iron TIBC Ferritin AST ALT Lactate Dehydrogenase Troponin T C-Reactive Protein Total Protein Albumin Prealbumin Cholesterol LDL Cholesterol Direct HDL Cholesterol Urine WBC (Auto) Vancomycin Trough Coronavirus (PCR) Crossmatch 07/13/19 07/14/19 07/14/19 18:30 00:21 04:40 WBC 22.9 H RBC 2.45 L Hgb 6.6 L Hct 21.1 L MCV MCH 27 L MCHC 31 L RDW 19.2 H Plt Count Lymph % (Auto) Charles % (Auto) Lymph # Charles # Baso # Seg Neutrophils % Seg Neuts % (Manual) 91.0 H Lymphocytes % (Manual) 7.0 L Monocytes % (Manual) Basophils % (Manual) Nucleated RBC % Seg Neutrophils # Seg Neutrophils # Man 20.8 H Lymphocytes # (Manual) Monocytes # (Manual) Eosinophils # (Manual) Basophils # (Manual) PT INR D-Dimer ABG pH ABG pO2 58.1 L ABG HCO3 ABG O2 Saturation 88.7 L ABG Base Excess ABG Hemoglobin 7.8 L Oxyhemoglobin 86.8 L Sodium Potassium Chloride Carbon Dioxide BUN Creatinine Glucose POC Glucose 118 H Lactic Acid Calcium Magnesium Iron TIBC Ferritin AST ALT Lactate Dehydrogenase Troponin T C-Reactive Protein Total Protein Albumin Prealbumin Cholesterol LDL Cholesterol Direct HDL Cholesterol Urine WBC (Auto) Vancomycin Trough Coronavirus (PCR) Crossmatch 07/14/19 07/14/19 07/14/19 04:40 05:38 05:45 WBC RBC Hgb Hct MCV MCH MCHC RDW Plt Count Lymph % (Auto) Charles % (Auto) Lymph # Charles # Baso # Seg Neutrophils % Seg Neuts % (Manual) Lymphocytes % (Manual) Monocytes % (Manual) Basophils % (Manual) Nucleated RBC % Seg Neutrophils # Seg Neutrophils # Man Lymphocytes # (Manual) Monocytes # (Manual) Eosinophils # (Manual) Basophils # (Manual) PT INR D-Dimer ABG pH 7.230 L ABG pO2 72.1 L ABG HCO3 ABG O2 Saturation 89.3 L ABG Base Excess -2.7 L ABG Hemoglobin 6.7 L Oxyhemoglobin 87.7 L Sodium Potassium Chloride 107.4 H Carbon Dioxide BUN 45 H Creatinine Glucose 101 H POC Glucose 154 H Lactic Acid Calcium Magnesium Iron TIBC Ferritin AST ALT Lactate Dehydrogenase Troponin T C-Reactive Protein Total Protein Albumin Prealbumin Cholesterol LDL Cholesterol Direct HDL Cholesterol Urine WBC (Auto) Vancomycin Trough Coronavirus (PCR) Crossmatch 07/14/19 07/14/19 07/14/19 12:25 18:20 19:01 WBC 22.4 H RBC 2.70 L Hgb 7.5 L Hct 23.3 L MCV MCH MCHC RDW 19.5 H Plt Count Lymph % (Auto) Charles % (Auto) Lymph # Charles # Baso # Seg Neutrophils % Seg Neuts % (Manual) Lymphocytes % (Manual) Monocytes % (Manual) Basophils % (Manual) Nucleated RBC % Seg Neutrophils # Seg Neutrophils # Man Lymphocytes # (Manual) Monocytes # (Manual) Eosinophils # (Manual) Basophils # (Manual) PT INR D-Dimer ABG pH ABG pO2 ABG HCO3 ABG O2 Saturation ABG Base Excess ABG Hemoglobin Oxyhemoglobin Sodium Potassium Chloride Carbon Dioxide BUN Creatinine Glucose POC Glucose 136 H 131 H Lactic Acid Calcium Magnesium Iron TIBC Ferritin AST ALT Lactate Dehydrogenase Troponin T C-Reactive Protein Total Protein Albumin Prealbumin Cholesterol LDL Cholesterol Direct HDL Cholesterol Urine WBC (Auto) Vancomycin Trough Coronavirus (PCR) Crossmatch 07/15/19 07/15/19 07/15/19 00:17 04:35 05:18 WBC 20.6 H RBC 2.41 L Hgb 6.8 L Hct 20.7 L MCV MCH MCHC RDW 20.2 H Plt Count Lymph % (Auto) Charles % (Auto) Lymph # Charles # Baso # Seg Neutrophils % Seg Neuts % (Manual) 92.0 H Lymphocytes % (Manual) 5.0 L Monocytes % (Manual) Basophils % (Manual) Nucleated RBC % Seg Neutrophils # Seg Neutrophils # Man 19.0 H Lymphocytes # (Manual) 1.0 L Monocytes # (Manual) Eosinophils # (Manual) Basophils # (Manual) PT INR D-Dimer ABG pH 7.342 L ABG pO2 ABG HCO3 ABG O2 Saturation ABG Base Excess -3.1 L ABG Hemoglobin 7.2 L Oxyhemoglobin 94.9 L Sodium Potassium Chloride Carbon Dioxide BUN Creatinine Glucose POC Glucose 116 H Lactic Acid Calcium Magnesium Iron TIBC Ferritin AST ALT Lactate Dehydrogenase Troponin T C-Reactive Protein Total Protein Albumin Prealbumin Cholesterol LDL Cholesterol Direct HDL Cholesterol Urine WBC (Auto) Vancomycin Trough Coronavirus (PCR) Crossmatch 07/15/19 07/15/19 07/15/19 05:18 05:57 11:28 WBC RBC Hgb Hct MCV MCH MCHC RDW Plt Count Lymph % (Auto) Charles % (Auto) Lymph # Charles # Baso # Seg Neutrophils % Seg Neuts % (Manual) Lymphocytes % (Manual) Monocytes % (Manual) Basophils % (Manual) Nucleated RBC % Seg Neutrophils # Seg Neutrophils # Man Lymphocytes # (Manual) Monocytes # (Manual) Eosinophils # (Manual) Basophils # (Manual) PT INR D-Dimer ABG pH ABG pO2 ABG HCO3 ABG O2 Saturation ABG Base Excess ABG Hemoglobin Oxyhemoglobin Sodium Potassium Chloride Carbon Dioxide 20 L BUN 59 H Creatinine Glucose 140 H POC Glucose 139 H 117 H Lactic Acid Calcium Magnesium Iron TIBC Ferritin AST ALT Lactate Dehydrogenase Troponin T C-Reactive Protein Total Protein Albumin Prealbumin Cholesterol LDL Cholesterol Direct HDL Cholesterol Urine WBC (Auto) Vancomycin Trough Coronavirus (PCR) Crossmatch 07/15/19 07/16/19 07/16/19 18:13 00:06 03:43 WBC RBC Hgb Hct MCV MCH MCHC RDW Plt Count Lymph % (Auto) Charles % (Auto) Lymph # Charles # Baso # Seg Neutrophils % Seg Neuts % (Manual) Lymphocytes % (Manual) Monocytes % (Manual) Basophils % (Manual) Nucleated RBC % Seg Neutrophils # Seg Neutrophils # Man Lymphocytes # (Manual) Monocytes # (Manual) Eosinophils # (Manual) Basophils # (Manual) PT INR D-Dimer ABG pH 7.344 L ABG pO2 68.6 L ABG HCO3 ABG O2 Saturation ABG Base Excess -3.5 L ABG Hemoglobin 6.1 L Oxyhemoglobin 93.3 L Sodium Potassium Chloride Carbon Dioxide BUN Creatinine Glucose POC Glucose 114 H 119 H Lactic Acid Calcium Magnesium Iron TIBC Ferritin AST ALT Lactate Dehydrogenase Troponin T C-Reactive Protein Total Protein Albumin Prealbumin Cholesterol LDL Cholesterol Direct HDL Cholesterol Urine WBC (Auto) Vancomycin Trough Coronavirus (PCR) Crossmatch 07/16/19 07/16/19 07/16/19 04:41 04:41 12:09 WBC 19.6 H RBC 2.81 L Hgb 7.7 L Hct 24.0 L MCV MCH 27 L MCHC RDW 19.4 H Plt Count 514 H Lymph % (Auto) 6.7 L Charles % (Auto) Lymph # Charles # 1.0 H Baso # Seg Neutrophils % 87.0 H Seg Neuts % (Manual) Lymphocytes % (Manual) Monocytes % (Manual) Basophils % (Manual) Nucleated RBC % Seg Neutrophils # 17.0 H Seg Neutrophils # Man Lymphocytes # (Manual) Monocytes # (Manual) Eosinophils # (Manual) Basophils # (Manual) PT INR D-Dimer ABG pH ABG pO2 ABG HCO3 ABG O2 Saturation ABG Base Excess ABG Hemoglobin Oxyhemoglobin Sodium Potassium 5.9 H Chloride Carbon Dioxide 21 L BUN 73 H Creatinine 2.0 H Glucose POC Glucose 141 H Lactic Acid Calcium Magnesium Iron TIBC Ferritin AST ALT Lactate Dehydrogenase Troponin T C-Reactive Protein Total Protein Albumin Prealbumin Cholesterol LDL Cholesterol Direct HDL Cholesterol Urine WBC (Auto) Vancomycin Trough Coronavirus (PCR) Crossmatch 07/16/19 07/16/19 07/17/19 16:19 17:45 00:16 WBC RBC Hgb Hct MCV MCH MCHC RDW Plt Count Lymph % (Auto) Charles % (Auto) Lymph # Charles # Baso # Seg Neutrophils % Seg Neuts % (Manual) Lymphocytes % (Manual) Monocytes % (Manual) Basophils % (Manual) Nucleated RBC % Seg Neutrophils # Seg Neutrophils # Man Lymphocytes # (Manual) Monocytes # (Manual) Eosinophils # (Manual) Basophils # (Manual) PT INR D-Dimer ABG pH ABG pO2 ABG HCO3 ABG O2 Saturation ABG Base Excess ABG Hemoglobin Oxyhemoglobin Sodium Potassium 5.1 H Chloride Carbon Dioxide 20 L BUN 72 H Creatinine 1.7 H Glucose 128 H POC Glucose 181 H 164 H Lactic Acid Calcium Magnesium Iron TIBC Ferritin AST ALT Lactate Dehydrogenase Troponin T C-Reactive Protein Total Protein Albumin Prealbumin Cholesterol LDL Cholesterol Direct HDL Cholesterol Urine WBC (Auto) Vancomycin Trough Coronavirus (PCR) Crossmatch 07/17/19 07/17/19 07/17/19 04:20 04:39 04:39 WBC 16.1 H RBC 2.92 L Hgb 8.0 L Hct 25.5 L MCV MCH MCHC 31 L RDW 19.7 H Plt Count 564 H Lymph % (Auto) 3.6 L Charles % (Auto) 7.4 H Lymph # 0.6 L Charles # 1.2 H Baso # Seg Neutrophils % 87.5 H Seg Neuts % (Manual) Lymphocytes % (Manual) Monocytes % (Manual) Basophils % (Manual) Nucleated RBC % Seg Neutrophils # 14.1 H Seg Neutrophils # Man Lymphocytes # (Manual) Monocytes # (Manual) Eosinophils # (Manual) Basophils # (Manual) PT INR D-Dimer ABG pH 7.231 L ABG pO2 95.3 H ABG HCO3 ABG O2 Saturation ABG Base Excess -5.0 L ABG Hemoglobin 7.9 L Oxyhemoglobin 94.8 L Sodium Potassium Chloride 107.8 H Carbon Dioxide 21 L BUN 68 H Creatinine Glucose POC Glucose Lactic Acid Calcium Magnesium Iron TIBC Ferritin AST ALT Lactate Dehydrogenase Troponin T C-Reactive Protein Total Protein Albumin Prealbumin Cholesterol LDL Cholesterol Direct HDL Cholesterol Urine WBC (Auto) Vancomycin Trough Coronavirus (PCR) Crossmatch 07/17/19 07/17/19 07/17/19 05:28 12:11 18:48 WBC RBC Hgb Hct MCV MCH MCHC RDW Plt Count Lymph % (Auto) Charles % (Auto) Lymph # Charles # Baso # Seg Neutrophils % Seg Neuts % (Manual) Lymphocytes % (Manual) Monocytes % (Manual) Basophils % (Manual) Nucleated RBC % Seg Neutrophils # Seg Neutrophils # Man Lymphocytes # (Manual) Monocytes # (Manual) Eosinophils # (Manual) Basophils # (Manual) PT INR D-Dimer ABG pH ABG pO2 ABG HCO3 ABG O2 Saturation ABG Base Excess ABG Hemoglobin Oxyhemoglobin Sodium Potassium Chloride Carbon Dioxide BUN Creatinine Glucose POC Glucose 121 H 125 H 174 H Lactic Acid Calcium Magnesium Iron TIBC Ferritin AST ALT Lactate Dehydrogenase Troponin T C-Reactive Protein Total Protein Albumin Prealbumin Cholesterol LDL Cholesterol Direct HDL Cholesterol Urine WBC (Auto) Vancomycin Trough Coronavirus (PCR) Crossmatch 07/17/19 07/17/19 07/18/19 19:55 23:57 02:30 WBC RBC Hgb Hct MCV MCH MCHC RDW Plt Count Lymph % (Auto) Charles % (Auto) Lymph # Charles # Baso # Seg Neutrophils % Seg Neuts % (Manual) Lymphocytes % (Manual) Monocytes % (Manual) Basophils % (Manual) Nucleated RBC % Seg Neutrophils # Seg Neutrophils # Man Lymphocytes # (Manual) Monocytes # (Manual) Eosinophils # (Manual) Basophils # (Manual) PT INR D-Dimer ABG pH 7.344 L 7.294 L ABG pO2 78.5 L 119.2 H ABG HCO3 ABG O2 Saturation ABG Base Excess -3.3 L -2.6 L ABG Hemoglobin 8.6 L 8.1 L Oxyhemoglobin 94.8 L Sodium Potassium Chloride Carbon Dioxide BUN Creatinine Glucose POC Glucose 148 H Lactic Acid Calcium Magnesium Iron TIBC Ferritin AST ALT Lactate Dehydrogenase Troponin T C-Reactive Protein Total Protein Albumin Prealbumin Cholesterol LDL Cholesterol Direct HDL Cholesterol Urine WBC (Auto) Vancomycin Trough Coronavirus (PCR) Crossmatch 07/18/19 07/18/19 07/18/19 04:49 05:22 05:22 WBC 15.9 H RBC 3.00 L Hgb 8.1 L Hct 26.0 L MCV MCH 27 L MCHC 31 L RDW 19.4 H Plt Count 733 H Lymph % (Auto) 6.3 L Charles % (Auto) 7.4 H Lymph # 1.0 L Charles # 1.2 H Baso # 0.2 H Seg Neutrophils % 83.8 H Seg Neuts % (Manual) Lymphocytes % (Manual) Monocytes % (Manual) Basophils % (Manual) Nucleated RBC % Seg Neutrophils # 13.3 H Seg Neutrophils # Man Lymphocytes # (Manual) Monocytes # (Manual) Eosinophils # (Manual) Basophils # (Manual) PT INR D-Dimer ABG pH ABG pO2 ABG HCO3 ABG O2 Saturation ABG Base Excess ABG Hemoglobin Oxyhemoglobin Sodium Potassium Chloride 110.6 H Carbon Dioxide BUN 61 H Creatinine Glucose 109 H POC Glucose 116 H Lactic Acid Calcium Magnesium Iron TIBC Ferritin AST ALT Lactate Dehydrogenase Troponin T C-Reactive Protein Total Protein Albumin Prealbumin Cholesterol LDL Cholesterol Direct HDL Cholesterol Urine WBC (Auto) Vancomycin Trough Coronavirus (PCR) Crossmatch 07/18/19 07/18/19 07/18/19 12:23 18:06 22:20 WBC RBC Hgb Hct MCV MCH MCHC RDW Plt Count Lymph % (Auto) Charles % (Auto) Lymph # Charles # Baso # Seg Neutrophils % Seg Neuts % (Manual) Lymphocytes % (Manual) Monocytes % (Manual) Basophils % (Manual) Nucleated RBC % Seg Neutrophils # Seg Neutrophils # Man Lymphocytes # (Manual) Monocytes # (Manual) Eosinophils # (Manual) Basophils # (Manual) PT INR D-Dimer ABG pH 7.338 L ABG pO2 135.1 H ABG HCO3 ABG O2 Saturation ABG Base Excess ABG Hemoglobin 9.2 L Oxyhemoglobin Sodium Potassium Chloride Carbon Dioxide BUN Creatinine Glucose POC Glucose 114 H 113 H Lactic Acid Calcium Magnesium Iron TIBC Ferritin AST ALT Lactate Dehydrogenase Troponin T C-Reactive Protein Total Protein Albumin Prealbumin Cholesterol LDL Cholesterol Direct HDL Cholesterol Urine WBC (Auto) Vancomycin Trough Coronavirus (PCR) Crossmatch 07/18/19 07/19/19 07/19/19 23:33 03:45 05:18 WBC RBC Hgb Hct MCV MCH MCHC RDW Plt Count Lymph % (Auto) Charles % (Auto) Lymph # Charles # Baso # Seg Neutrophils % Seg Neuts % (Manual) Lymphocytes % (Manual) Monocytes % (Manual) Basophils % (Manual) Nucleated RBC % Seg Neutrophils # Seg Neutrophils # Man Lymphocytes # (Manual) Monocytes # (Manual) Eosinophils # (Manual) Basophils # (Manual) PT INR D-Dimer ABG pH 7.342 L ABG pO2 95.0 H ABG HCO3 ABG O2 Saturation ABG Base Excess ABG Hemoglobin 8.5 L Oxyhemoglobin Sodium Potassium Chloride Carbon Dioxide BUN Creatinine Glucose POC Glucose 125 H 111 H Lactic Acid Calcium Magnesium Iron TIBC Ferritin AST ALT Lactate Dehydrogenase Troponin T C-Reactive Protein Total Protein Albumin Prealbumin Cholesterol LDL Cholesterol Direct HDL Cholesterol Urine WBC (Auto) Vancomycin Trough Coronavirus (PCR) Crossmatch 07/19/19 07/19/19 07/19/19 08:45 08:45 11:47 WBC 15.9 H RBC 3.31 L Hgb 9.1 L Hct 28.4 L MCV MCH 27 L MCHC RDW 19.1 H Plt Count 858 H Lymph % (Auto) 4.9 L Charles % (Auto) 8.1 H Lymph # 0.8 L Charles # 1.3 H Baso # Seg Neutrophils % 85.5 H Seg Neuts % (Manual) Lymphocytes % (Manual) Monocytes % (Manual) Basophils % (Manual) Nucleated RBC % Seg Neutrophils # 13.6 H Seg Neutrophils # Man Lymphocytes # (Manual) Monocytes # (Manual) Eosinophils # (Manual) Basophils # (Manual) PT INR D-Dimer ABG pH ABG pO2 ABG HCO3 ABG O2 Saturation ABG Base Excess ABG Hemoglobin Oxyhemoglobin Sodium Potassium Chloride 111.6 H Carbon Dioxide BUN 50 H Creatinine 0.7 L Glucose 118 H POC Glucose 114 H Lactic Acid Calcium Magnesium Iron TIBC Ferritin AST ALT Lactate Dehydrogenase Troponin T C-Reactive Protein Total Protein Albumin Prealbumin Cholesterol LDL Cholesterol Direct HDL Cholesterol Urine WBC (Auto) Vancomycin Trough Coronavirus (PCR) Crossmatch 07/19/19 07/19/19 07/20/19 18:25 23:44 04:39 WBC RBC Hgb Hct MCV MCH MCHC RDW Plt Count Lymph % (Auto) Charles % (Auto) Lymph # Charles # Baso # Seg Neutrophils % Seg Neuts % (Manual) Lymphocytes % (Manual) Monocytes % (Manual) Basophils % (Manual) Nucleated RBC % Seg Neutrophils # Seg Neutrophils # Man Lymphocytes # (Manual) Monocytes # (Manual) Eosinophils # (Manual) Basophils # (Manual) PT INR D-Dimer ABG pH ABG pO2 ABG HCO3 ABG O2 Saturation ABG Base Excess ABG Hemoglobin Oxyhemoglobin Sodium Potassium Chloride 110.3 H Carbon Dioxide BUN 44 H Creatinine 0.6 L Glucose 120 H POC Glucose 115 H 117 H Lactic Acid Calcium Magnesium Iron TIBC Ferritin AST ALT Lactate Dehydrogenase Troponin T C-Reactive Protein Total Protein Albumin Prealbumin Cholesterol LDL Cholesterol Direct HDL Cholesterol Urine WBC (Auto) Vancomycin Trough Coronavirus (PCR) Crossmatch 07/20/19 07/21/19 07/21/19 05:30 11:59 17:40 WBC RBC Hgb Hct MCV MCH MCHC RDW Plt Count Lymph % (Auto) Charles % (Auto) Lymph # Charles # Baso # Seg Neutrophils % Seg Neuts % (Manual) Lymphocytes % (Manual) Monocytes % (Manual) Basophils % (Manual) Nucleated RBC % Seg Neutrophils # Seg Neutrophils # Man Lymphocytes # (Manual) Monocytes # (Manual) Eosinophils # (Manual) Basophils # (Manual) PT INR D-Dimer ABG pH ABG pO2 ABG HCO3 ABG O2 Saturation ABG Base Excess ABG Hemoglobin Oxyhemoglobin Sodium Potassium Chloride Carbon Dioxide BUN Creatinine Glucose POC Glucose 131 H 122 H 125 H Lactic Acid Calcium Magnesium Iron TIBC Ferritin AST ALT Lactate Dehydrogenase Troponin T C-Reactive Protein Total Protein Albumin Prealbumin Cholesterol LDL Cholesterol Direct HDL Cholesterol Urine WBC (Auto) Vancomycin Trough Coronavirus (PCR) Crossmatch 07/22/19 07/22/19 07/22/19 05:38 05:38 12:29 WBC 12.6 H RBC 3.19 L Hgb 8.9 L Hct 27.5 L MCV MCH MCHC RDW 18.9 H Plt Count 1101 H* Lymph % (Auto) Charles % (Auto) 12.2 H Lymph # Charles # 1.5 H Baso # Seg Neutrophils % 72.8 H Seg Neuts % (Manual) 76.0 H Lymphocytes % (Manual) 7.0 L Monocytes % (Manual) 14.0 H Basophils % (Manual) Nucleated RBC % 1.0 H Seg Neutrophils # 9.2 H Seg Neutrophils # Man 9.6 H Lymphocytes # (Manual) 0.9 L Monocytes # (Manual) 1.8 H Eosinophils # (Manual) Basophils # (Manual) PT INR D-Dimer ABG pH ABG pO2 ABG HCO3 ABG O2 Saturation ABG Base Excess ABG Hemoglobin Oxyhemoglobin Sodium Potassium 3.4 L Chloride Carbon Dioxide BUN 29 H Creatinine 0.5 L Glucose POC Glucose 116 H Lactic Acid Calcium Magnesium Iron TIBC Ferritin AST ALT Lactate Dehydrogenase Troponin T C-Reactive Protein Total Protein Albumin Prealbumin Cholesterol LDL Cholesterol Direct HDL Cholesterol Urine WBC (Auto) Vancomycin Trough Coronavirus (PCR) Crossmatch 07/22/19 07/22/19 07/23/19 18:20 23:51 04:52 WBC RBC Hgb Hct MCV MCH MCHC RDW Plt Count Lymph % (Auto) Charles % (Auto) Lymph # Charles # Baso # Seg Neutrophils % Seg Neuts % (Manual) Lymphocytes % (Manual) Monocytes % (Manual) Basophils % (Manual) Nucleated RBC % Seg Neutrophils # Seg Neutrophils # Man Lymphocytes # (Manual) Monocytes # (Manual) Eosinophils # (Manual) Basophils # (Manual) PT INR D-Dimer ABG pH ABG pO2 ABG HCO3 ABG O2 Saturation ABG Base Excess ABG Hemoglobin Oxyhemoglobin Sodium Potassium Chloride Carbon Dioxide BUN 24 H Creatinine 0.4 L Glucose POC Glucose 107 H 110 H Lactic Acid Calcium Magnesium Iron TIBC Ferritin AST ALT Lactate Dehydrogenase Troponin T C-Reactive Protein Total Protein Albumin Prealbumin Cholesterol LDL Cholesterol Direct HDL Cholesterol Urine WBC (Auto) Vancomycin Trough Coronavirus (PCR) Crossmatch 07/23/19 07/23/19 07/24/19 06:00 23:15 04:40 WBC RBC Hgb Hct MCV MCH MCHC RDW Plt Count Lymph % (Auto) Charles % (Auto) Lymph # Charles # Baso # Seg Neutrophils % Seg Neuts % (Manual) Lymphocytes % (Manual) Monocytes % (Manual) Basophils % (Manual) Nucleated RBC % Seg Neutrophils # Seg Neutrophils # Man Lymphocytes # (Manual) Monocytes # (Manual) Eosinophils # (Manual) Basophils # (Manual) PT INR D-Dimer ABG pH ABG pO2 73.5 L ABG HCO3 27.0 H 28.5 H ABG O2 Saturation 94.5 L ABG Base Excess ABG Hemoglobin 9.4 L 8.9 L Oxyhemoglobin 94.0 L 92.7 L Sodium Potassium Chloride Carbon Dioxide BUN Creatinine Glucose POC Glucose 117 H Lactic Acid Calcium Magnesium Iron TIBC Ferritin AST ALT Lactate Dehydrogenase Troponin T C-Reactive Protein Total Protein Albumin Prealbumin Cholesterol LDL Cholesterol Direct HDL Cholesterol Urine WBC (Auto) Vancomycin Trough Coronavirus (PCR) Crossmatch 07/24/19 07/24/19 07/25/19 05:25 12:06 00:16 WBC RBC Hgb Hct MCV MCH MCHC RDW Plt Count Lymph % (Auto) Charles % (Auto) Lymph # Charles # Baso # Seg Neutrophils % Seg Neuts % (Manual) Lymphocytes % (Manual) Monocytes % (Manual) Basophils % (Manual) Nucleated RBC % Seg Neutrophils # Seg Neutrophils # Man Lymphocytes # (Manual) Monocytes # (Manual) Eosinophils # (Manual) Basophils # (Manual) PT INR D-Dimer ABG pH ABG pO2 ABG HCO3 ABG O2 Saturation ABG Base Excess ABG Hemoglobin Oxyhemoglobin Sodium Potassium Chloride Carbon Dioxide BUN Creatinine Glucose POC Glucose 114 H 108 H 106 H Lactic Acid Calcium Magnesium Iron TIBC Ferritin AST ALT Lactate Dehydrogenase Troponin T C-Reactive Protein Total Protein Albumin Prealbumin Cholesterol LDL Cholesterol Direct HDL Cholesterol Urine WBC (Auto) Vancomycin Trough Coronavirus (PCR) Crossmatch 07/25/19 07/25/19 07/25/19 05:14 05:14 05:17 WBC 17.8 H RBC 3.32 L Hgb 9.2 L Hct 28.6 L MCV MCH MCHC RDW 19.9 H Plt Count 994 H Lymph % (Auto) Charles % (Auto) Lymph # Charles # Baso # Seg Neutrophils % Seg Neuts % (Manual) 82.0 H Lymphocytes % (Manual) 5.0 L Monocytes % (Manual) Basophils % (Manual) Nucleated RBC % Seg Neutrophils # Seg Neutrophils # Man 14.6 H Lymphocytes # (Manual) 0.9 L Monocytes # (Manual) 1.2 H Eosinophils # (Manual) Basophils # (Manual) PT INR D-Dimer ABG pH ABG pO2 ABG HCO3 ABG O2 Saturation ABG Base Excess ABG Hemoglobin Oxyhemoglobin Sodium Potassium Chloride Carbon Dioxide BUN Creatinine 0.4 L Glucose 110 H POC Glucose 107 H Lactic Acid Calcium Magnesium Iron TIBC Ferritin AST ALT Lactate Dehydrogenase Troponin T C-Reactive Protein Total Protein Albumin Prealbumin Cholesterol LDL Cholesterol Direct HDL Cholesterol Urine WBC (Auto) Vancomycin Trough Coronavirus (PCR) Crossmatch 07/25/19 07/25/19 07/26/19 11:55 23:49 06:01 WBC RBC Hgb Hct MCV MCH MCHC RDW Plt Count Lymph % (Auto) Charles % (Auto) Lymph # Charles # Baso # Seg Neutrophils % Seg Neuts % (Manual) Lymphocytes % (Manual) Monocytes % (Manual) Basophils % (Manual) Nucleated RBC % Seg Neutrophils # Seg Neutrophils # Man Lymphocytes # (Manual) Monocytes # (Manual) Eosinophils # (Manual) Basophils # (Manual) PT INR D-Dimer ABG pH ABG pO2 ABG HCO3 ABG O2 Saturation ABG Base Excess ABG Hemoglobin Oxyhemoglobin Sodium Potassium Chloride Carbon Dioxide BUN Creatinine Glucose POC Glucose 123 H 118 H 106 H Lactic Acid Calcium Magnesium Iron TIBC Ferritin AST ALT Lactate Dehydrogenase Troponin T C-Reactive Protein Total Protein Albumin Prealbumin Cholesterol LDL Cholesterol Direct HDL Cholesterol Urine WBC (Auto) Vancomycin Trough Coronavirus (PCR) Crossmatch 07/26/19 07/27/19 07/27/19 17:02 00:28 05:16 WBC RBC Hgb Hct MCV MCH MCHC RDW Plt Count Lymph % (Auto) Charles % (Auto) Lymph # Charles # Baso # Seg Neutrophils % Seg Neuts % (Manual) Lymphocytes % (Manual) Monocytes % (Manual) Basophils % (Manual) Nucleated RBC % Seg Neutrophils # Seg Neutrophils # Man Lymphocytes # (Manual) Monocytes # (Manual) Eosinophils # (Manual) Basophils # (Manual) PT INR D-Dimer ABG pH ABG pO2 63.4 L ABG HCO3 31.3 H ABG O2 Saturation 92.7 L ABG Base Excess 6.3 H ABG Hemoglobin 7.6 L Oxyhemoglobin 90.9 L Sodium Potassium Chloride Carbon Dioxide BUN Creatinine Glucose POC Glucose 116 H 158 H Lactic Acid Calcium Magnesium Iron TIBC Ferritin AST ALT Lactate Dehydrogenase Troponin T C-Reactive Protein Total Protein Albumin Prealbumin Cholesterol LDL Cholesterol Direct HDL Cholesterol Urine WBC (Auto) Vancomycin Trough Coronavirus (PCR) Crossmatch 07/28/19 07/28/19 07/28/19 10:13 10:13 23:54 WBC 18.5 H RBC 3.20 L Hgb 8.8 L Hct 26.8 L MCV MCH 27 L MCHC RDW 19.9 H Plt Count 730 H Lymph % (Auto) Charles % (Auto) Lymph # Charles # Baso # Seg Neutrophils % Seg Neuts % (Manual) Lymphocytes % (Manual) Monocytes % (Manual) Basophils % (Manual) Nucleated RBC % Seg Neutrophils # Seg Neutrophils # Man Lymphocytes # (Manual) Monocytes # (Manual) Eosinophils # (Manual) Basophils # (Manual) PT INR D-Dimer ABG pH ABG pO2 ABG HCO3 ABG O2 Saturation ABG Base Excess ABG Hemoglobin Oxyhemoglobin Sodium Potassium 3.2 L Chloride 97.5 L Carbon Dioxide 31 H BUN Creatinine 0.5 L Glucose POC Glucose 120 H Lactic Acid Calcium Magnesium Iron TIBC Ferritin AST ALT Lactate Dehydrogenase Troponin T C-Reactive Protein Total Protein Albumin Prealbumin Cholesterol LDL Cholesterol Direct HDL Cholesterol Urine WBC (Auto) Vancomycin Trough Coronavirus (PCR) Crossmatch 07/29/19 07/29/19 07/29/19 11:57 17:43 Unknown WBC RBC Hgb Hct MCV MCH MCHC RDW Plt Count Lymph % (Auto) Charles % (Auto) Lymph # Charles # Baso # Seg Neutrophils % Seg Neuts % (Manual) Lymphocytes % (Manual) Monocytes % (Manual) Basophils % (Manual) Nucleated RBC % Seg Neutrophils # Seg Neutrophils # Man Lymphocytes # (Manual) Monocytes # (Manual) Eosinophils # (Manual) Basophils # (Manual) PT INR D-Dimer ABG pH ABG pO2 ABG HCO3 ABG O2 Saturation ABG Base Excess ABG Hemoglobin Oxyhemoglobin Sodium Potassium Chloride Carbon Dioxide BUN Creatinine Glucose POC Glucose 112 H Lactic Acid Calcium Magnesium Iron TIBC Ferritin AST ALT Lactate Dehydrogenase Troponin T C-Reactive Protein Total Protein Albumin Prealbumin Cholesterol LDL Cholesterol Direct HDL Cholesterol Urine WBC (Auto) 63.0 H Vancomycin Trough Coronavirus (PCR) Positive A Crossmatch 07/30/19 07/30/19 07/30/19 00:20 04:35 04:35 WBC 24.3 H RBC 3.12 L Hgb 8.5 L Hct 26.3 L MCV MCH 27 L MCHC RDW 20.2 H Plt Count 550 H Lymph % (Auto) Charles % (Auto) Lymph # Charles # Baso # Seg Neutrophils % Seg Neuts % (Manual) Lymphocytes % (Manual) Monocytes % (Manual) Basophils % (Manual) Nucleated RBC % Seg Neutrophils # Seg Neutrophils # Man Lymphocytes # (Manual) Monocytes # (Manual) Eosinophils # (Manual) Basophils # (Manual) PT INR D-Dimer ABG pH ABG pO2 ABG HCO3 ABG O2 Saturation ABG Base Excess ABG Hemoglobin Oxyhemoglobin Sodium Potassium 3.0 L Chloride 96.3 L Carbon Dioxide 32 H BUN Creatinine 0.5 L Glucose POC Glucose 106 H Lactic Acid Calcium Magnesium Iron TIBC Ferritin AST ALT Lactate Dehydrogenase Troponin T C-Reactive Protein Total Protein Albumin Prealbumin Cholesterol LDL Cholesterol Direct HDL Cholesterol Urine WBC (Auto) Vancomycin Trough Coronavirus (PCR) Crossmatch 07/31/19 07/31/19 07/31/19 04:42 04:42 11:33 WBC 23.8 H RBC 3.10 L Hgb 8.4 L Hct 26.1 L MCV MCH 27 L MCHC RDW 19.6 H Plt Count 561 H Lymph % (Auto) Charles % (Auto) Lymph # Charles # Baso # Seg Neutrophils % Seg Neuts % (Manual) Lymphocytes % (Manual) Monocytes % (Manual) Basophils % (Manual) Nucleated RBC % Seg Neutrophils # Seg Neutrophils # Man Lymphocytes # (Manual) Monocytes # (Manual) Eosinophils # (Manual) Basophils # (Manual) PT INR D-Dimer ABG pH ABG pO2 ABG HCO3 ABG O2 Saturation ABG Base Excess ABG Hemoglobin Oxyhemoglobin Sodium 135 L Potassium Chloride 93.9 L Carbon Dioxide 32 H BUN Creatinine 0.4 L Glucose POC Glucose 116 H Lactic Acid Calcium Magnesium Iron TIBC Ferritin AST ALT Lactate Dehydrogenase Troponin T C-Reactive Protein Total Protein Albumin 1.6 L Prealbumin 0.037 L Cholesterol LDL Cholesterol Direct HDL Cholesterol Urine WBC (Auto) Vancomycin Trough Coronavirus (PCR) Crossmatch 07/31/19 08/01/19 08/01/19 23:33 04:57 04:57 WBC 26.7 H RBC 3.12 L Hgb 8.5 L Hct 26.3 L MCV MCH 27 L MCHC RDW 19.2 H Plt Count 602 H Lymph % (Auto) Charles % (Auto) Lymph # Charles # Baso # Seg Neutrophils % Seg Neuts % (Manual) 93.0 H Lymphocytes % (Manual) 2.0 L Monocytes % (Manual) Basophils % (Manual) Nucleated RBC % Seg Neutrophils # Seg Neutrophils # Man 24.8 H Lymphocytes # (Manual) 0.5 L Monocytes # (Manual) 1.1 H Eosinophils # (Manual) Basophils # (Manual) PT INR D-Dimer ABG pH ABG pO2 ABG HCO3 ABG O2 Saturation ABG Base Excess ABG Hemoglobin Oxyhemoglobin Sodium 132 L Potassium Chloride 93.8 L Carbon Dioxide 31 H BUN Creatinine 0.3 L Glucose POC Glucose 148 H Lactic Acid Calcium 8.1 L Magnesium Iron TIBC Ferritin AST ALT Lactate Dehydrogenase Troponin T C-Reactive Protein Total Protein Albumin Prealbumin Cholesterol LDL Cholesterol Direct HDL Cholesterol Urine WBC (Auto) Vancomycin Trough Coronavirus (PCR) Crossmatch 08/01/19 08/02/19 08/02/19 12:16 00:22 05:24 WBC RBC Hgb Hct MCV MCH MCHC RDW Plt Count Lymph % (Auto) Charles % (Auto) Lymph # Charles # Baso # Seg Neutrophils % Seg Neuts % (Manual) Lymphocytes % (Manual) Monocytes % (Manual) Basophils % (Manual) Nucleated RBC % Seg Neutrophils # Seg Neutrophils # Man Lymphocytes # (Manual) Monocytes # (Manual) Eosinophils # (Manual) Basophils # (Manual) PT INR D-Dimer ABG pH ABG pO2 ABG HCO3 ABG O2 Saturation ABG Base Excess ABG Hemoglobin Oxyhemoglobin Sodium Potassium Chloride Carbon Dioxide BUN Creatinine Glucose POC Glucose 120 H 119 H 113 H Lactic Acid Calcium Magnesium Iron TIBC Ferritin AST ALT Lactate Dehydrogenase Troponin T C-Reactive Protein Total Protein Albumin Prealbumin Cholesterol LDL Cholesterol Direct HDL Cholesterol Urine WBC (Auto) Vancomycin Trough Coronavirus (PCR) Crossmatch 08/03/19 08/03/19 08/03/19 05:20 12:01 23:48 WBC RBC Hgb Hct MCV MCH MCHC RDW Plt Count Lymph % (Auto) Charles % (Auto) Lymph # Charles # Baso # Seg Neutrophils % Seg Neuts % (Manual) Lymphocytes % (Manual) Monocytes % (Manual) Basophils % (Manual) Nucleated RBC % Seg Neutrophils # Seg Neutrophils # Man Lymphocytes # (Manual) Monocytes # (Manual) Eosinophils # (Manual) Basophils # (Manual) PT INR D-Dimer ABG pH ABG pO2 ABG HCO3 ABG O2 Saturation ABG Base Excess ABG Hemoglobin Oxyhemoglobin Sodium Potassium Chloride Carbon Dioxide BUN Creatinine Glucose POC Glucose 118 H 106 H 120 H Lactic Acid Calcium Magnesium Iron TIBC Ferritin AST ALT Lactate Dehydrogenase Troponin T C-Reactive Protein Total Protein Albumin Prealbumin Cholesterol LDL Cholesterol Direct HDL Cholesterol Urine WBC (Auto) Vancomycin Trough Coronavirus (PCR) Crossmatch 08/04/19 08/04/19 08/04/19 05:38 05:38 06:29 WBC 26.1 H RBC 2.77 L Hgb 7.5 L Hct 23.2 L MCV MCH 27 L MCHC RDW 19.2 H Plt Count 648 H Lymph % (Auto) Charles % (Auto) Lymph # Charles # Baso # Seg Neutrophils % Seg Neuts % (Manual) 90.5 H Lymphocytes % (Manual) 3.5 L Monocytes % (Manual) Basophils % (Manual) Nucleated RBC % Seg Neutrophils # Seg Neutrophils # Man 23.6 H Lymphocytes # (Manual) 0.9 L Monocytes # (Manual) 1.2 H Eosinophils # (Manual) Basophils # (Manual) PT INR D-Dimer ABG pH ABG pO2 ABG HCO3 ABG O2 Saturation ABG Base Excess ABG Hemoglobin Oxyhemoglobin Sodium 132 L Potassium 3.4 L D Chloride 92.7 L Carbon Dioxide 33 H BUN Creatinine 0.2 L Glucose POC Glucose 108 H Lactic Acid Calcium 8.1 L Magnesium Iron TIBC Ferritin AST ALT Lactate Dehydrogenase Troponin T C-Reactive Protein Total Protein Albumin Prealbumin Cholesterol LDL Cholesterol Direct HDL Cholesterol Urine WBC (Auto) Vancomycin Trough Coronavirus (PCR) Crossmatch 08/04/19 08/05/19 08/05/19 12:30 04:58 04:58 WBC 21.0 H RBC 2.63 L Hgb 7.2 L Hct 21.9 L MCV 83 L MCH 27 L MCHC RDW 18.9 H Plt Count 691 H Lymph % (Auto) Charles % (Auto) Lymph # Charles # Baso # Seg Neutrophils % Seg Neuts % (Manual) 86.0 H Lymphocytes % (Manual) 3.0 L Monocytes % (Manual) 10.0 H Basophils % (Manual) Nucleated RBC % Seg Neutrophils # Seg Neutrophils # Man 18.1 H Lymphocytes # (Manual) 0.6 L Monocytes # (Manual) 2.1 H Eosinophils # (Manual) Basophils # (Manual) PT INR D-Dimer ABG pH ABG pO2 ABG HCO3 ABG O2 Saturation ABG Base Excess ABG Hemoglobin Oxyhemoglobin Sodium 134 L Potassium 3.2 L Chloride 93.2 L Carbon Dioxide 34 H BUN 8 L Creatinine 0.3 L Glucose POC Glucose 138 H Lactic Acid Calcium 8.1 L Magnesium Iron TIBC Ferritin AST ALT Lactate Dehydrogenase Troponin T C-Reactive Protein Total Protein Albumin Prealbumin Cholesterol LDL Cholesterol Direct HDL Cholesterol Urine WBC (Auto) Vancomycin Trough Coronavirus (PCR) Crossmatch 08/05/19 08/05/19 08/05/19 11:53 17:57 23:58 WBC RBC Hgb Hct MCV MCH MCHC RDW Plt Count Lymph % (Auto) Charles % (Auto) Lymph # Charles # Baso # Seg Neutrophils % Seg Neuts % (Manual) Lymphocytes % (Manual) Monocytes % (Manual) Basophils % (Manual) Nucleated RBC % Seg Neutrophils # Seg Neutrophils # Man Lymphocytes # (Manual) Monocytes # (Manual) Eosinophils # (Manual) Basophils # (Manual) PT INR D-Dimer ABG pH ABG pO2 ABG HCO3 ABG O2 Saturation ABG Base Excess ABG Hemoglobin Oxyhemoglobin Sodium Potassium Chloride Carbon Dioxide BUN Creatinine Glucose POC Glucose 106 H 111 H 116 H Lactic Acid Calcium Magnesium Iron TIBC Ferritin AST ALT Lactate Dehydrogenase Troponin T C-Reactive Protein Total Protein Albumin Prealbumin Cholesterol LDL Cholesterol Direct HDL Cholesterol Urine WBC (Auto) Vancomycin Trough Coronavirus (PCR) Crossmatch 08/06/19 08/06/19 08/06/19 04:11 04:11 06:04 WBC 20.8 H RBC 2.80 L Hgb 7.6 L Hct 23.5 L MCV MCH 27 L MCHC RDW 19.0 H Plt Count 723 H Lymph % (Auto) Charles % (Auto) Lymph # Charles # Baso # Seg Neutrophils % Seg Neuts % (Manual) 88.0 H Lymphocytes % (Manual) 3.0 L Monocytes % (Manual) Basophils % (Manual) Nucleated RBC % Seg Neutrophils # Seg Neutrophils # Man 18.3 H Lymphocytes # (Manual) 0.6 L Monocytes # (Manual) Eosinophils # (Manual) Basophils # (Manual) 0.2 H PT INR D-Dimer ABG pH ABG pO2 ABG HCO3 ABG O2 Saturation ABG Base Excess ABG Hemoglobin Oxyhemoglobin Sodium Potassium 3.4 L Chloride 95.2 L Carbon Dioxide 32 H BUN Creatinine 0.3 L Glucose POC Glucose 108 H Lactic Acid Calcium 8.2 L Magnesium Iron TIBC Ferritin AST ALT Lactate Dehydrogenase Troponin T C-Reactive Protein Total Protein Albumin Prealbumin Cholesterol LDL Cholesterol Direct HDL Cholesterol Urine WBC (Auto) Vancomycin Trough Coronavirus (PCR) Crossmatch 08/06/19 08/06/19 08/07/19 12:23 17:13 00:21 WBC RBC Hgb Hct MCV MCH MCHC RDW Plt Count Lymph % (Auto) Charles % (Auto) Lymph # Charles # Baso # Seg Neutrophils % Seg Neuts % (Manual) Lymphocytes % (Manual) Monocytes % (Manual) Basophils % (Manual) Nucleated RBC % Seg Neutrophils # Seg Neutrophils # Man Lymphocytes # (Manual) Monocytes # (Manual) Eosinophils # (Manual) Basophils # (Manual) PT INR D-Dimer ABG pH ABG pO2 ABG HCO3 ABG O2 Saturation ABG Base Excess ABG Hemoglobin Oxyhemoglobin Sodium Potassium Chloride Carbon Dioxide BUN Creatinine Glucose POC Glucose 112 H 132 H 147 H Lactic Acid Calcium Magnesium Iron TIBC Ferritin AST ALT Lactate Dehydrogenase Troponin T C-Reactive Protein Total Protein Albumin Prealbumin Cholesterol LDL Cholesterol Direct HDL Cholesterol Urine WBC (Auto) Vancomycin Trough Coronavirus (PCR) Crossmatch 08/07/19 08/07/19 08/07/19 05:16 05:23 05:23 WBC 30.3 H RBC 2.69 L Hgb 7.1 L Hct 22.2 L MCV 83 L MCH 27 L MCHC RDW 19.1 H Plt Count 650 H Lymph % (Auto) Charles % (Auto) Lymph # Charles # Baso # Seg Neutrophils % Seg Neuts % (Manual) 88.0 H Lymphocytes % (Manual) 5.0 L Monocytes % (Manual) Basophils % (Manual) Nucleated RBC % Seg Neutrophils # Seg Neutrophils # Man 26.7 H Lymphocytes # (Manual) Monocytes # (Manual) 2.1 H Eosinophils # (Manual) Basophils # (Manual) PT INR D-Dimer ABG pH ABG pO2 ABG HCO3 ABG O2 Saturation ABG Base Excess ABG Hemoglobin Oxyhemoglobin Sodium 135 L Potassium 3.4 L Chloride 95.4 L Carbon Dioxide 32 H BUN Creatinine 0.4 L Glucose 120 H POC Glucose 120 H Lactic Acid Calcium 7.7 L Magnesium Iron TIBC Ferritin AST ALT Lactate Dehydrogenase Troponin T C-Reactive Protein Total Protein Albumin Prealbumin Cholesterol LDL Cholesterol Direct HDL Cholesterol Urine WBC (Auto) Vancomycin Trough Coronavirus (PCR) Crossmatch 08/07/19 08/07/19 08/07/19 10:24 10:24 11:10 WBC RBC Hgb Hct MCV MCH MCHC RDW Plt Count Lymph % (Auto) Charles % (Auto) Lymph # Charles # Baso # Seg Neutrophils % Seg Neuts % (Manual) Lymphocytes % (Manual) Monocytes % (Manual) Basophils % (Manual) Nucleated RBC % Seg Neutrophils # Seg Neutrophils # Man Lymphocytes # (Manual) Monocytes # (Manual) Eosinophils # (Manual) Basophils # (Manual) PT INR D-Dimer 1808.06 H ABG pH ABG pO2 73.3 L ABG HCO3 33.9 H ABG O2 Saturation ABG Base Excess 9.0 H ABG Hemoglobin 6.3 L Oxyhemoglobin 94.3 L Sodium Potassium Chloride Carbon Dioxide BUN Creatinine Glucose POC Glucose Lactic Acid Calcium Magnesium Iron TIBC Ferritin AST ALT Lactate Dehydrogenase Troponin T C-Reactive Protein 11.10 H Total Protein Albumin Prealbumin Cholesterol LDL Cholesterol Direct HDL Cholesterol Urine WBC (Auto) Vancomycin Trough Coronavirus (PCR) Crossmatch 08/07/19 08/08/19 08/08/19 12:01 04:41 04:41 WBC 22.1 H RBC 2.82 L Hgb 7.7 L Hct 23.6 L MCV MCH 27 L MCHC RDW 19.1 H Plt Count 722 H Lymph % (Auto) Charles % (Auto) Lymph # Charles # Baso # Seg Neutrophils % Seg Neuts % (Manual) 90.0 H Lymphocytes % (Manual) 3.0 L Monocytes % (Manual) Basophils % (Manual) Nucleated RBC % Seg Neutrophils # Seg Neutrophils # Man 19.9 H Lymphocytes # (Manual) 0.7 L Monocytes # (Manual) 1.3 H Eosinophils # (Manual) Basophils # (Manual) PT INR D-Dimer ABG pH ABG pO2 ABG HCO3 ABG O2 Saturation ABG Base Excess ABG Hemoglobin Oxyhemoglobin Sodium 136 L Potassium Chloride 97.8 L Carbon Dioxide BUN Creatinine 0.3 L Glucose 105 H POC Glucose 130 H Lactic Acid Calcium 7.8 L Magnesium Iron TIBC Ferritin AST ALT Lactate Dehydrogenase Troponin T C-Reactive Protein Total Protein Albumin Prealbumin Cholesterol LDL Cholesterol Direct HDL Cholesterol Urine WBC (Auto) Vancomycin Trough Coronavirus (PCR) Crossmatch 08/08/19 08/08/19 08/09/19 11:46 18:35 00:12 WBC RBC Hgb Hct MCV MCH MCHC RDW Plt Count Lymph % (Auto) Charles % (Auto) Lymph # Charles # Baso # Seg Neutrophils % Seg Neuts % (Manual) Lymphocytes % (Manual) Monocytes % (Manual) Basophils % (Manual) Nucleated RBC % Seg Neutrophils # Seg Neutrophils # Man Lymphocytes # (Manual) Monocytes # (Manual) Eosinophils # (Manual) Basophils # (Manual) PT INR D-Dimer ABG pH ABG pO2 ABG HCO3 ABG O2 Saturation ABG Base Excess ABG Hemoglobin Oxyhemoglobin Sodium Potassium Chloride Carbon Dioxide BUN Creatinine Glucose POC Glucose 117 H 117 H 117 H Lactic Acid Calcium Magnesium Iron TIBC Ferritin AST ALT Lactate Dehydrogenase Troponin T C-Reactive Protein Total Protein Albumin Prealbumin Cholesterol LDL Cholesterol Direct HDL Cholesterol Urine WBC (Auto) Vancomycin Trough Coronavirus (PCR) Crossmatch 08/09/19 08/09/19 08/09/19 05:33 12:22 17:48 WBC RBC Hgb Hct MCV MCH MCHC RDW Plt Count Lymph % (Auto) Charles % (Auto) Lymph # Charles # Baso # Seg Neutrophils % Seg Neuts % (Manual) Lymphocytes % (Manual) Monocytes % (Manual) Basophils % (Manual) Nucleated RBC % Seg Neutrophils # Seg Neutrophils # Man Lymphocytes # (Manual) Monocytes # (Manual) Eosinophils # (Manual) Basophils # (Manual) PT INR D-Dimer ABG pH ABG pO2 ABG HCO3 ABG O2 Saturation ABG Base Excess ABG Hemoglobin Oxyhemoglobin Sodium Potassium Chloride Carbon Dioxide BUN Creatinine Glucose POC Glucose 119 H 133 H 123 H Lactic Acid Calcium Magnesium Iron TIBC Ferritin AST ALT Lactate Dehydrogenase Troponin T C-Reactive Protein Total Protein Albumin Prealbumin Cholesterol LDL Cholesterol Direct HDL Cholesterol Urine WBC (Auto) Vancomycin Trough Coronavirus (PCR) Crossmatch 08/09/19 08/09/19 08/10/19 17:59 18:15 00:02 WBC RBC Hgb 6.7 L Hct 20.4 L MCV MCH MCHC RDW Plt Count Lymph % (Auto) Charles % (Auto) Lymph # Charles # Baso # Seg Neutrophils % Seg Neuts % (Manual) Lymphocytes % (Manual) Monocytes % (Manual) Basophils % (Manual) Nucleated RBC % Seg Neutrophils # Seg Neutrophils # Man Lymphocytes # (Manual) Monocytes # (Manual) Eosinophils # (Manual) Basophils # (Manual) PT INR D-Dimer ABG pH ABG pO2 ABG HCO3 ABG O2 Saturation ABG Base Excess ABG Hemoglobin Oxyhemoglobin Sodium Potassium Chloride Carbon Dioxide BUN Creatinine Glucose POC Glucose 124 H Lactic Acid Calcium Magnesium Iron TIBC Ferritin AST ALT Lactate Dehydrogenase Troponin T C-Reactive Protein Total Protein Albumin Prealbumin Cholesterol LDL Cholesterol Direct HDL Cholesterol Urine WBC (Auto) Vancomycin Trough Coronavirus (PCR) Crossmatch See Detail 08/10/19 08/10/19 08/10/19 05:47 08:00 08:00 WBC 16.9 H RBC 2.94 L Hgb 8.2 L Hct 24.9 L MCV MCH MCHC RDW 17.0 H Plt Count 661 H Lymph % (Auto) Charles % (Auto) Lymph # Charles # Baso # Seg Neutrophils % Seg Neuts % (Manual) Lymphocytes % (Manual) Monocytes % (Manual) Basophils % (Manual) Nucleated RBC % Seg Neutrophils # Seg Neutrophils # Man Lymphocytes # (Manual) Monocytes # (Manual) Eosinophils # (Manual) Basophils # (Manual) PT INR D-Dimer ABG pH ABG pO2 ABG HCO3 ABG O2 Saturation ABG Base Excess ABG Hemoglobin Oxyhemoglobin Sodium Potassium Chloride Carbon Dioxide BUN Creatinine 0.3 L Glucose 116 H POC Glucose 148 H Lactic Acid Calcium 7.7 L Magnesium Iron TIBC Ferritin AST ALT Lactate Dehydrogenase Troponin T C-Reactive Protein Total Protein Albumin Prealbumin Cholesterol LDL Cholesterol Direct HDL Cholesterol Urine WBC (Auto) Vancomycin Trough Coronavirus (PCR) Crossmatch 08/10/19 08/10/19 08/10/19 12:38 18:06 23:56 WBC RBC Hgb Hct MCV MCH MCHC RDW Plt Count Lymph % (Auto) Charles % (Auto) Lymph # Charles # Baso # Seg Neutrophils % Seg Neuts % (Manual) Lymphocytes % (Manual) Monocytes % (Manual) Basophils % (Manual) Nucleated RBC % Seg Neutrophils # Seg Neutrophils # Man Lymphocytes # (Manual) Monocytes # (Manual) Eosinophils # (Manual) Basophils # (Manual) PT INR D-Dimer ABG pH ABG pO2 ABG HCO3 ABG O2 Saturation ABG Base Excess ABG Hemoglobin Oxyhemoglobin Sodium Potassium Chloride Carbon Dioxide BUN Creatinine Glucose POC Glucose 113 H 126 H 115 H Lactic Acid Calcium Magnesium Iron TIBC Ferritin AST ALT Lactate Dehydrogenase Troponin T C-Reactive Protein Total Protein Albumin Prealbumin Cholesterol LDL Cholesterol Direct HDL Cholesterol Urine WBC (Auto) Vancomycin Trough Coronavirus (PCR) Crossmatch 08/10/19 08/11/19 08/12/19 Unknown 18:10 03:30 WBC 14.4 H RBC 2.58 L Hgb 7.4 L Hct 22.1 L MCV MCH MCHC RDW 17.4 H Plt Count 786 H Lymph % (Auto) Charles % (Auto) Lymph # Charles # Baso # Seg Neutrophils % Seg Neuts % (Manual) Lymphocytes % (Manual) Monocytes % (Manual) Basophils % (Manual) Nucleated RBC % Seg Neutrophils # Seg Neutrophils # Man Lymphocytes # (Manual) Monocytes # (Manual) Eosinophils # (Manual) Basophils # (Manual) PT INR D-Dimer ABG pH ABG pO2 ABG HCO3 ABG O2 Saturation ABG Base Excess ABG Hemoglobin Oxyhemoglobin Sodium Potassium Chloride Carbon Dioxide BUN Creatinine Glucose POC Glucose 106 H Lactic Acid Calcium Magnesium Iron TIBC Ferritin AST ALT Lactate Dehydrogenase Troponin T C-Reactive Protein Total Protein Albumin Prealbumin Cholesterol LDL Cholesterol Direct HDL Cholesterol Urine WBC (Auto) Vancomycin Trough Coronavirus (PCR) Positive A Crossmatch 08/12/19 08/12/19 08/13/19 03:30 12:08 05:25 WBC RBC Hgb Hct MCV MCH MCHC RDW Plt Count Lymph % (Auto) Charles % (Auto) Lymph # Charles # Baso # Seg Neutrophils % Seg Neuts % (Manual) Lymphocytes % (Manual) Monocytes % (Manual) Basophils % (Manual) Nucleated RBC % Seg Neutrophils # Seg Neutrophils # Man Lymphocytes # (Manual) Monocytes # (Manual) Eosinophils # (Manual) Basophils # (Manual) PT INR D-Dimer ABG pH ABG pO2 ABG HCO3 ABG O2 Saturation ABG Base Excess ABG Hemoglobin Oxyhemoglobin Sodium Potassium Chloride Carbon Dioxide BUN 7 L Creatinine 0.3 L Glucose 117 H POC Glucose 112 H 126 H Lactic Acid Calcium 7.8 L Magnesium Iron TIBC Ferritin AST ALT Lactate Dehydrogenase Troponin T C-Reactive Protein Total Protein Albumin Prealbumin Cholesterol LDL Cholesterol Direct HDL Cholesterol Urine WBC (Auto) Vancomycin Trough Coronavirus (PCR) Crossmatch 08/13/19 08/13/19 08/13/19 11:36 17:10 19:06 WBC RBC Hgb Hct MCV MCH MCHC RDW Plt Count Lymph % (Auto) Charles % (Auto) Lymph # Charles # Baso # Seg Neutrophils % Seg Neuts % (Manual) Lymphocytes % (Manual) Monocytes % (Manual) Basophils % (Manual) Nucleated RBC % Seg Neutrophils # Seg Neutrophils # Man Lymphocytes # (Manual) Monocytes # (Manual) Eosinophils # (Manual) Basophils # (Manual) PT INR D-Dimer ABG pH ABG pO2 105.0 H ABG HCO3 28.5 H ABG O2 Saturation ABG Base Excess 3.5 H ABG Hemoglobin 7.8 L Oxyhemoglobin Sodium Potassium Chloride Carbon Dioxide BUN Creatinine Glucose POC Glucose 143 H 107 H Lactic Acid Calcium Magnesium Iron TIBC Ferritin AST ALT Lactate Dehydrogenase Troponin T C-Reactive Protein Total Protein Albumin Prealbumin Cholesterol LDL Cholesterol Direct HDL Cholesterol Urine WBC (Auto) Vancomycin Trough Coronavirus (PCR) Crossmatch 08/13/19 08/14/19 08/14/19 23:23 05:00 05:00 WBC 14.3 H RBC 2.76 L Hgb 7.8 L Hct 23.9 L MCV MCH MCHC RDW 18.7 H Plt Count 896 H Lymph % (Auto) Charles % (Auto) Lymph # Charles # Baso # Seg Neutrophils % Seg Neuts % (Manual) Lymphocytes % (Manual) Monocytes % (Manual) Basophils % (Manual) Nucleated RBC % Seg Neutrophils # Seg Neutrophils # Man Lymphocytes # (Manual) Monocytes # (Manual) Eosinophils # (Manual) Basophils # (Manual) PT INR D-Dimer ABG pH ABG pO2 ABG HCO3 ABG O2 Saturation ABG Base Excess ABG Hemoglobin Oxyhemoglobin Sodium Potassium Chloride Carbon Dioxide BUN 6 L Creatinine 0.3 L Glucose POC Glucose 125 H Lactic Acid Calcium 8.2 L Magnesium Iron TIBC Ferritin AST ALT Lactate Dehydrogenase Troponin T C-Reactive Protein Total Protein Albumin Prealbumin Cholesterol LDL Cholesterol Direct HDL Cholesterol Urine WBC (Auto) Vancomycin Trough Coronavirus (PCR) Crossmatch 08/14/19 08/15/19 08/15/19 05:07 00:25 05:42 WBC RBC Hgb Hct MCV MCH MCHC RDW Plt Count Lymph % (Auto) Charles % (Auto) Lymph # Charles # Baso # Seg Neutrophils % Seg Neuts % (Manual) Lymphocytes % (Manual) Monocytes % (Manual) Basophils % (Manual) Nucleated RBC % Seg Neutrophils # Seg Neutrophils # Man Lymphocytes # (Manual) Monocytes # (Manual) Eosinophils # (Manual) Basophils # (Manual) PT INR D-Dimer ABG pH ABG pO2 ABG HCO3 ABG O2 Saturation ABG Base Excess ABG Hemoglobin Oxyhemoglobin Sodium Potassium Chloride Carbon Dioxide BUN Creatinine Glucose POC Glucose 128 H 117 H 115 H Lactic Acid Calcium Magnesium Iron TIBC Ferritin AST ALT Lactate Dehydrogenase Troponin T C-Reactive Protein Total Protein Albumin Prealbumin Cholesterol LDL Cholesterol Direct HDL Cholesterol Urine WBC (Auto) Vancomycin Trough Coronavirus (PCR) Crossmatch 08/15/19 08/15/19 08/15/19 06:10 06:10 06:10 WBC 11.6 H RBC 2.68 L Hgb 7.7 L Hct 23.3 L MCV MCH MCHC RDW 19.2 H Plt Count 885 H Lymph % (Auto) Charles % (Auto) Lymph # Charles # Baso # Seg Neutrophils % Seg Neuts % (Manual) Lymphocytes % (Manual) Monocytes % (Manual) Basophils % (Manual) Nucleated RBC % Seg Neutrophils # Seg Neutrophils # Man Lymphocytes # (Manual) Monocytes # (Manual) Eosinophils # (Manual) Basophils # (Manual) PT INR D-Dimer ABG pH ABG pO2 ABG HCO3 ABG O2 Saturation ABG Base Excess ABG Hemoglobin Oxyhemoglobin Sodium Potassium Chloride Carbon Dioxide BUN 6 L Creatinine 0.3 L Glucose 107 H POC Glucose Lactic Acid Calcium 8.2 L Magnesium 1.50 L Iron TIBC Ferritin AST ALT Lactate Dehydrogenase Troponin T C-Reactive Protein Total Protein Albumin Prealbumin Cholesterol LDL Cholesterol Direct HDL Cholesterol Urine WBC (Auto) Vancomycin Trough Coronavirus (PCR) Crossmatch 08/15/19 08/16/19 08/16/19 12:12 00:05 05:00 WBC 13.3 H RBC 2.87 L Hgb 8.1 L Hct 24.9 L MCV MCH MCHC RDW 18.7 H Plt Count 962 H Lymph % (Auto) Charles % (Auto) Lymph # Charles # Baso # Seg Neutrophils % Seg Neuts % (Manual) Lymphocytes % (Manual) Monocytes % (Manual) Basophils % (Manual) Nucleated RBC % Seg Neutrophils # Seg Neutrophils # Man Lymphocytes # (Manual) Monocytes # (Manual) Eosinophils # (Manual) Basophils # (Manual) PT INR D-Dimer ABG pH ABG pO2 ABG HCO3 ABG O2 Saturation ABG Base Excess ABG Hemoglobin Oxyhemoglobin Sodium Potassium Chloride Carbon Dioxide BUN Creatinine Glucose POC Glucose 112 H 111 H Lactic Acid Calcium Magnesium Iron TIBC Ferritin AST ALT Lactate Dehydrogenase Troponin T C-Reactive Protein Total Protein Albumin Prealbumin Cholesterol LDL Cholesterol Direct HDL Cholesterol Urine WBC (Auto) Vancomycin Trough Coronavirus (PCR) Crossmatch 08/16/19 08/16/19 08/16/19 05:00 05:00 23:35 WBC RBC Hgb Hct MCV MCH MCHC RDW Plt Count Lymph % (Auto) Charles % (Auto) Lymph # Charles # Baso # Seg Neutrophils % Seg Neuts % (Manual) Lymphocytes % (Manual) Monocytes % (Manual) Basophils % (Manual) Nucleated RBC % Seg Neutrophils # Seg Neutrophils # Man Lymphocytes # (Manual) Monocytes # (Manual) Eosinophils # (Manual) Basophils # (Manual) PT INR D-Dimer ABG pH ABG pO2 ABG HCO3 ABG O2 Saturation ABG Base Excess ABG Hemoglobin Oxyhemoglobin Sodium 135 L Potassium Chloride Carbon Dioxide BUN 6 L Creatinine 0.3 L Glucose POC Glucose 108 H Lactic Acid Calcium 8.2 L Magnesium Iron TIBC Ferritin AST ALT Lactate Dehydrogenase Troponin T C-Reactive Protein 2.70 H Total Protein Albumin 2.1 L Prealbumin Cholesterol LDL Cholesterol Direct HDL Cholesterol Urine WBC (Auto) Vancomycin Trough Coronavirus (PCR) Crossmatch 08/17/19 08/17/19 08/17/19 05:15 20:20 23:42 WBC RBC Hgb Hct MCV MCH MCHC RDW Plt Count Lymph % (Auto) Charles % (Auto) Lymph # Charles # Baso # Seg Neutrophils % Seg Neuts % (Manual) Lymphocytes % (Manual) Monocytes % (Manual) Basophils % (Manual) Nucleated RBC % Seg Neutrophils # Seg Neutrophils # Man Lymphocytes # (Manual) Monocytes # (Manual) Eosinophils # (Manual) Basophils # (Manual) PT INR D-Dimer ABG pH ABG pO2 ABG HCO3 27.8 H ABG O2 Saturation ABG Base Excess ABG Hemoglobin 11.4 L Oxyhemoglobin 94.6 L Sodium Potassium Chloride Carbon Dioxide BUN Creatinine Glucose POC Glucose 138 H 132 H Lactic Acid Calcium Magnesium Iron TIBC Ferritin AST ALT Lactate Dehydrogenase Troponin T C-Reactive Protein Total Protein Albumin Prealbumin Cholesterol LDL Cholesterol Direct HDL Cholesterol Urine WBC (Auto) Vancomycin Trough Coronavirus (PCR) Crossmatch 08/18/19 08/18/19 08/18/19 06:00 06:00 12:02 WBC 19.7 H RBC 3.30 L Hgb 9.3 L Hct 28.5 L MCV MCH MCHC RDW 18.9 H Plt Count 923 H Lymph % (Auto) Charles % (Auto) Lymph # Charles # Baso # Seg Neutrophils % Seg Neuts % (Manual) Lymphocytes % (Manual) Monocytes % (Manual) Basophils % (Manual) Nucleated RBC % Seg Neutrophils # Seg Neutrophils # Man Lymphocytes # (Manual) Monocytes # (Manual) Eosinophils # (Manual) Basophils # (Manual) PT INR D-Dimer ABG pH ABG pO2 ABG HCO3 ABG O2 Saturation ABG Base Excess ABG Hemoglobin Oxyhemoglobin Sodium 136 L Potassium Chloride Carbon Dioxide BUN Creatinine 0.4 L Glucose 71 L POC Glucose 123 H Lactic Acid Calcium Magnesium Iron TIBC Ferritin AST ALT Lactate Dehydrogenase Troponin T C-Reactive Protein Total Protein Albumin Prealbumin Cholesterol LDL Cholesterol Direct HDL Cholesterol Urine WBC (Auto) Vancomycin Trough Coronavirus (PCR) Crossmatch 08/18/19 08/18/19 08/19/19 18:23 23:16 04:57 WBC RBC Hgb Hct MCV MCH MCHC RDW Plt Count Lymph % (Auto) Charles % (Auto) Lymph # Charles # Baso # Seg Neutrophils % Seg Neuts % (Manual) Lymphocytes % (Manual) Monocytes % (Manual) Basophils % (Manual) Nucleated RBC % Seg Neutrophils # Seg Neutrophils # Man Lymphocytes # (Manual) Monocytes # (Manual) Eosinophils # (Manual) Basophils # (Manual) PT INR D-Dimer ABG pH ABG pO2 ABG HCO3 ABG O2 Saturation ABG Base Excess ABG Hemoglobin Oxyhemoglobin Sodium Potassium Chloride Carbon Dioxide BUN Creatinine Glucose POC Glucose 140 H 159 H 134 H Lactic Acid Calcium Magnesium Iron TIBC Ferritin AST ALT Lactate Dehydrogenase Troponin T C-Reactive Protein Total Protein Albumin Prealbumin Cholesterol LDL Cholesterol Direct HDL Cholesterol Urine WBC (Auto) Vancomycin Trough Coronavirus (PCR) Crossmatch 08/19/19 08/19/19 08/19/19 07:44 08:17 18:15 WBC 30.5 H RBC 2.87 L Hgb 7.9 L Hct 24.5 L MCV MCH MCHC RDW 18.8 H Plt Count 772 H Lymph % (Auto) Charles % (Auto) Lymph # Charles # Baso # Seg Neutrophils % Seg Neuts % (Manual) 89.0 H Lymphocytes % (Manual) 4.0 L Monocytes % (Manual) Basophils % (Manual) 2.0 H Nucleated RBC % Seg Neutrophils # Seg Neutrophils # Man 27.1 H Lymphocytes # (Manual) Monocytes # (Manual) 0.9 H Eosinophils # (Manual) 0.6 H Basophils # (Manual) 0.6 H PT INR D-Dimer ABG pH ABG pO2 ABG HCO3 ABG O2 Saturation ABG Base Excess ABG Hemoglobin Oxyhemoglobin Sodium 136 L Potassium Chloride Carbon Dioxide BUN Creatinine 0.3 L Glucose POC Glucose 106 H Lactic Acid Calcium 8.2 L Magnesium Iron TIBC Ferritin AST ALT Lactate Dehydrogenase Troponin T C-Reactive Protein Total Protein Albumin Prealbumin Cholesterol LDL Cholesterol Direct HDL Cholesterol Urine WBC (Auto) Vancomycin Trough Coronavirus (PCR) Crossmatch 08/19/19 08/20/19 08/20/19 23:46 06:20 18:34 WBC RBC Hgb Hct MCV MCH MCHC RDW Plt Count Lymph % (Auto) Charles % (Auto) Lymph # Charles # Baso # Seg Neutrophils % Seg Neuts % (Manual) Lymphocytes % (Manual) Monocytes % (Manual) Basophils % (Manual) Nucleated RBC % Seg Neutrophils # Seg Neutrophils # Man Lymphocytes # (Manual) Monocytes # (Manual) Eosinophils # (Manual) Basophils # (Manual) PT INR D-Dimer ABG pH ABG pO2 ABG HCO3 ABG O2 Saturation ABG Base Excess ABG Hemoglobin Oxyhemoglobin Sodium Potassium Chloride Carbon Dioxide BUN Creatinine Glucose POC Glucose 144 H 115 H 125 H Lactic Acid Calcium Magnesium Iron TIBC Ferritin AST ALT Lactate Dehydrogenase Troponin T C-Reactive Protein Total Protein Albumin Prealbumin Cholesterol LDL Cholesterol Direct HDL Cholesterol Urine WBC (Auto) Vancomycin Trough Coronavirus (PCR) Crossmatch 08/20/19 08/20/19 08/21/19 Unknown Unknown 11:56 WBC 18.7 H RBC 2.70 L Hgb 7.6 L Hct 23.1 L MCV MCH MCHC RDW 18.9 H Plt Count 690 H Lymph % (Auto) Charles % (Auto) Lymph # Charles # Baso # Seg Neutrophils % Seg Neuts % (Manual) Lymphocytes % (Manual) Monocytes % (Manual) Basophils % (Manual) Nucleated RBC % Seg Neutrophils # Seg Neutrophils # Man Lymphocytes # (Manual) Monocytes # (Manual) Eosinophils # (Manual) Basophils # (Manual) PT INR D-Dimer ABG pH ABG pO2 ABG HCO3 ABG O2 Saturation ABG Base Excess ABG Hemoglobin Oxyhemoglobin Sodium 134 L Potassium Chloride 97.9 L Carbon Dioxide BUN Creatinine 0.3 L Glucose 115 H POC Glucose 116 H Lactic Acid Calcium 8.2 L Magnesium Iron TIBC Ferritin AST ALT Lactate Dehydrogenase Troponin T C-Reactive Protein Total Protein Albumin Prealbumin Cholesterol LDL Cholesterol Direct HDL Cholesterol Urine WBC (Auto) Vancomycin Trough Coronavirus (PCR) Crossmatch 08/21/19 08/22/19 08/22/19 18:14 00:31 05:53 WBC RBC Hgb Hct MCV MCH MCHC RDW Plt Count Lymph % (Auto) Charles % (Auto) Lymph # Charles # Baso # Seg Neutrophils % Seg Neuts % (Manual) Lymphocytes % (Manual) Monocytes % (Manual) Basophils % (Manual) Nucleated RBC % Seg Neutrophils # Seg Neutrophils # Man Lymphocytes # (Manual) Monocytes # (Manual) Eosinophils # (Manual) Basophils # (Manual) PT INR D-Dimer ABG pH ABG pO2 ABG HCO3 ABG O2 Saturation ABG Base Excess ABG Hemoglobin Oxyhemoglobin Sodium Potassium Chloride Carbon Dioxide BUN Creatinine Glucose POC Glucose 113 H 106 H 109 H Lactic Acid Calcium Magnesium Iron TIBC Ferritin AST ALT Lactate Dehydrogenase Troponin T C-Reactive Protein Total Protein Albumin Prealbumin Cholesterol LDL Cholesterol Direct HDL Cholesterol Urine WBC (Auto) Vancomycin Trough Coronavirus (PCR) Crossmatch 08/22/19 08/23/19 08/23/19 18:35 00:18 06:00 WBC 12.3 H RBC 2.92 L Hgb 8.0 L Hct 24.6 L MCV MCH MCHC RDW 18.5 H Plt Count 661 H Lymph % (Auto) 11.7 L Charles % (Auto) 9.2 H Lymph # Charles # 1.1 H Baso # Seg Neutrophils % 75.6 H Seg Neuts % (Manual) Lymphocytes % (Manual) Monocytes % (Manual) Basophils % (Manual) Nucleated RBC % Seg Neutrophils # 9.3 H Seg Neutrophils # Man Lymphocytes # (Manual) Monocytes # (Manual) Eosinophils # (Manual) Basophils # (Manual) PT INR D-Dimer ABG pH ABG pO2 ABG HCO3 ABG O2 Saturation ABG Base Excess ABG Hemoglobin Oxyhemoglobin Sodium Potassium Chloride Carbon Dioxide BUN Creatinine Glucose POC Glucose 130 H 124 H Lactic Acid Calcium Magnesium Iron TIBC Ferritin AST ALT Lactate Dehydrogenase Troponin T C-Reactive Protein Total Protein Albumin Prealbumin Cholesterol LDL Cholesterol Direct HDL Cholesterol Urine WBC (Auto) Vancomycin Trough Coronavirus (PCR) Crossmatch 08/23/19 08/23/19 08/24/19 06:09 17:46 00:04 WBC RBC Hgb Hct MCV MCH MCHC RDW Plt Count Lymph % (Auto) Charles % (Auto) Lymph # Charles # Baso # Seg Neutrophils % Seg Neuts % (Manual) Lymphocytes % (Manual) Monocytes % (Manual) Basophils % (Manual) Nucleated RBC % Seg Neutrophils # Seg Neutrophils # Man Lymphocytes # (Manual) Monocytes # (Manual) Eosinophils # (Manual) Basophils # (Manual) PT INR D-Dimer ABG pH ABG pO2 ABG HCO3 ABG O2 Saturation ABG Base Excess ABG Hemoglobin Oxyhemoglobin Sodium Potassium Chloride Carbon Dioxide BUN Creatinine Glucose POC Glucose 117 H 125 H 113 H Lactic Acid Calcium Magnesium Iron TIBC Ferritin AST ALT Lactate Dehydrogenase Troponin T C-Reactive Protein Total Protein Albumin Prealbumin Cholesterol LDL Cholesterol Direct HDL Cholesterol Urine WBC (Auto) Vancomycin Trough Coronavirus (PCR) Crossmatch 08/24/19 08/24/19 08/24/19 05:34 12:28 17:32 WBC RBC Hgb Hct MCV MCH MCHC RDW Plt Count Lymph % (Auto) Charles % (Auto) Lymph # Charles # Baso # Seg Neutrophils % Seg Neuts % (Manual) Lymphocytes % (Manual) Monocytes % (Manual) Basophils % (Manual) Nucleated RBC % Seg Neutrophils # Seg Neutrophils # Man Lymphocytes # (Manual) Monocytes # (Manual) Eosinophils # (Manual) Basophils # (Manual) PT INR D-Dimer ABG pH ABG pO2 ABG HCO3 ABG O2 Saturation ABG Base Excess ABG Hemoglobin Oxyhemoglobin Sodium Potassium Chloride Carbon Dioxide BUN Creatinine Glucose POC Glucose 128 H 127 H 116 H Lactic Acid Calcium Magnesium Iron TIBC Ferritin AST ALT Lactate Dehydrogenase Troponin T C-Reactive Protein Total Protein Albumin Prealbumin Cholesterol LDL Cholesterol Direct HDL Cholesterol Urine WBC (Auto) Vancomycin Trough Coronavirus (PCR) Crossmatch 08/24/19 08/25/19 08/25/19 23:41 05:37 12:30 WBC RBC Hgb Hct MCV MCH MCHC RDW Plt Count Lymph % (Auto) Charles % (Auto) Lymph # Charles # Baso # Seg Neutrophils % Seg Neuts % (Manual) Lymphocytes % (Manual) Monocytes % (Manual) Basophils % (Manual) Nucleated RBC % Seg Neutrophils # Seg Neutrophils # Man Lymphocytes # (Manual) Monocytes # (Manual) Eosinophils # (Manual) Basophils # (Manual) PT INR D-Dimer ABG pH ABG pO2 ABG HCO3 ABG O2 Saturation ABG Base Excess ABG Hemoglobin Oxyhemoglobin Sodium Potassium Chloride Carbon Dioxide BUN Creatinine Glucose POC Glucose 107 H 129 H 110 H Lactic Acid Calcium Magnesium Iron TIBC Ferritin AST ALT Lactate Dehydrogenase Troponin T C-Reactive Protein Total Protein Albumin Prealbumin Cholesterol LDL Cholesterol Direct HDL Cholesterol Urine WBC (Auto) Vancomycin Trough Coronavirus (PCR) Crossmatch 08/25/19 08/25/19 08/26/19 17:49 23:55 05:35 WBC RBC Hgb Hct MCV MCH MCHC RDW Plt Count Lymph % (Auto) Charles % (Auto) Lymph # Charles # Baso # Seg Neutrophils % Seg Neuts % (Manual) Lymphocytes % (Manual) Monocytes % (Manual) Basophils % (Manual) Nucleated RBC % Seg Neutrophils # Seg Neutrophils # Man Lymphocytes # (Manual) Monocytes # (Manual) Eosinophils # (Manual) Basophils # (Manual) PT INR D-Dimer ABG pH ABG pO2 ABG HCO3 ABG O2 Saturation ABG Base Excess ABG Hemoglobin Oxyhemoglobin Sodium Potassium Chloride Carbon Dioxide BUN Creatinine Glucose POC Glucose 107 H 137 H 117 H Lactic Acid Calcium Magnesium Iron TIBC Ferritin AST ALT Lactate Dehydrogenase Troponin T C-Reactive Protein Total Protein Albumin Prealbumin Cholesterol LDL Cholesterol Direct HDL Cholesterol Urine WBC (Auto) Vancomycin Trough Coronavirus (PCR) Crossmatch 08/27/19 08/27/19 08/27/19 00:59 06:01 07:21 WBC 11.6 H RBC 3.15 L Hgb 8.3 L Hct 26.1 L MCV 83 L MCH 26 L MCHC RDW 18.6 H Plt Count 743 H Lymph % (Auto) 11.8 L Charles % (Auto) 8.8 H Lymph # Charles # 1.0 H Baso # Seg Neutrophils % 75.3 H Seg Neuts % (Manual) Lymphocytes % (Manual) Monocytes % (Manual) Basophils % (Manual) Nucleated RBC % Seg Neutrophils # 8.7 H Seg Neutrophils # Man Lymphocytes # (Manual) Monocytes # (Manual) Eosinophils # (Manual) Basophils # (Manual) PT INR D-Dimer ABG pH ABG pO2 ABG HCO3 ABG O2 Saturation ABG Base Excess ABG Hemoglobin Oxyhemoglobin Sodium Potassium Chloride Carbon Dioxide BUN Creatinine Glucose POC Glucose 126 H 134 H Lactic Acid Calcium Magnesium Iron TIBC Ferritin AST ALT Lactate Dehydrogenase Troponin T C-Reactive Protein Total Protein Albumin Prealbumin Cholesterol LDL Cholesterol Direct HDL Cholesterol Urine WBC (Auto) Vancomycin Trough Coronavirus (PCR) Crossmatch 08/27/19 08/27/19 08/28/19 07:21 18:05 00:37 WBC RBC Hgb Hct MCV MCH MCHC RDW Plt Count Lymph % (Auto) Charles % (Auto) Lymph # Charles # Baso # Seg Neutrophils % Seg Neuts % (Manual) Lymphocytes % (Manual) Monocytes % (Manual) Basophils % (Manual) Nucleated RBC % Seg Neutrophils # Seg Neutrophils # Man Lymphocytes # (Manual) Monocytes # (Manual) Eosinophils # (Manual) Basophils # (Manual) PT INR D-Dimer ABG pH ABG pO2 ABG HCO3 ABG O2 Saturation ABG Base Excess ABG Hemoglobin Oxyhemoglobin Sodium 132 L Potassium 5.1 H Chloride 97.6 L Carbon Dioxide BUN Creatinine 0.3 L Glucose 119 H POC Glucose 127 H 106 H Lactic Acid Calcium Magnesium Iron TIBC Ferritin AST ALT Lactate Dehydrogenase Troponin T C-Reactive Protein Total Protein Albumin Prealbumin Cholesterol LDL Cholesterol Direct HDL Cholesterol Urine WBC (Auto) Vancomycin Trough Coronavirus (PCR) Crossmatch 08/28/19 08/29/19 08/29/19 18:14 00:01 12:16 WBC RBC Hgb Hct MCV MCH MCHC RDW Plt Count Lymph % (Auto) Charles % (Auto) Lymph # Charles # Baso # Seg Neutrophils % Seg Neuts % (Manual) Lymphocytes % (Manual) Monocytes % (Manual) Basophils % (Manual) Nucleated RBC % Seg Neutrophils # Seg Neutrophils # Man Lymphocytes # (Manual) Monocytes # (Manual) Eosinophils # (Manual) Basophils # (Manual) PT INR D-Dimer ABG pH ABG pO2 ABG HCO3 ABG O2 Saturation ABG Base Excess ABG Hemoglobin Oxyhemoglobin Sodium Potassium Chloride Carbon Dioxide BUN Creatinine Glucose POC Glucose 115 H 146 H 107 H Lactic Acid Calcium Magnesium Iron TIBC Ferritin AST ALT Lactate Dehydrogenase Troponin T C-Reactive Protein Total Protein Albumin Prealbumin Cholesterol LDL Cholesterol Direct HDL Cholesterol Urine WBC (Auto) Vancomycin Trough Coronavirus (PCR) Crossmatch 08/30/19 08/30/19 08/30/19 05:10 05:10 05:25 WBC 12.3 H RBC 3.01 L Hgb 8.0 L Hct 25.1 L MCV MCH 27 L MCHC RDW 19.3 H Plt Count 709 H Lymph % (Auto) 8.9 L Charles % (Auto) Lymph # 1.1 L Charles # Baso # Seg Neutrophils % 82.7 H Seg Neuts % (Manual) Lymphocytes % (Manual) Monocytes % (Manual) Basophils % (Manual) Nucleated RBC % Seg Neutrophils # 10.1 H Seg Neutrophils # Man Lymphocytes # (Manual) Monocytes # (Manual) Eosinophils # (Manual) Basophils # (Manual) PT INR D-Dimer ABG pH ABG pO2 ABG HCO3 ABG O2 Saturation ABG Base Excess ABG Hemoglobin Oxyhemoglobin Sodium 133 L Potassium Chloride 97.8 L Carbon Dioxide BUN Creatinine 0.3 L Glucose POC Glucose 106 H Lactic Acid Calcium Magnesium 1.50 L Iron TIBC Ferritin AST ALT Lactate Dehydrogenase Troponin T C-Reactive Protein Total Protein Albumin 2.4 L Prealbumin Cholesterol LDL Cholesterol Direct HDL Cholesterol Urine WBC (Auto) Vancomycin Trough Coronavirus (PCR) Crossmatch 08/30/19 08/30/19 08/31/19 18:26 23:48 05:32 WBC RBC Hgb Hct MCV MCH MCHC RDW Plt Count Lymph % (Auto) Charles % (Auto) Lymph # Charles # Baso # Seg Neutrophils % Seg Neuts % (Manual) Lymphocytes % (Manual) Monocytes % (Manual) Basophils % (Manual) Nucleated RBC % Seg Neutrophils # Seg Neutrophils # Man Lymphocytes # (Manual) Monocytes # (Manual) Eosinophils # (Manual) Basophils # (Manual) PT INR D-Dimer ABG pH ABG pO2 ABG HCO3 ABG O2 Saturation ABG Base Excess ABG Hemoglobin Oxyhemoglobin Sodium Potassium Chloride Carbon Dioxide BUN Creatinine Glucose POC Glucose 139 H 113 H 115 H Lactic Acid Calcium Magnesium Iron TIBC Ferritin AST ALT Lactate Dehydrogenase Troponin T C-Reactive Protein Total Protein Albumin Prealbumin Cholesterol LDL Cholesterol Direct HDL Cholesterol Urine WBC (Auto) Vancomycin Trough Coronavirus (PCR) Crossmatch 09/01/19 09/01/19 09/01/19 04:33 11:43 14:50 WBC RBC Hgb Hct MCV MCH MCHC RDW Plt Count Lymph % (Auto) Charles % (Auto) Lymph # Charles # Baso # Seg Neutrophils % Seg Neuts % (Manual) Lymphocytes % (Manual) Monocytes % (Manual) Basophils % (Manual) Nucleated RBC % Seg Neutrophils # Seg Neutrophils # Man Lymphocytes # (Manual) Monocytes # (Manual) Eosinophils # (Manual) Basophils # (Manual) PT INR D-Dimer ABG pH 7.485 H ABG pO2 483.8 H ABG HCO3 ABG O2 Saturation 99.6 H ABG Base Excess ABG Hemoglobin 8.0 L Oxyhemoglobin Sodium Potassium Chloride Carbon Dioxide BUN Creatinine Glucose POC Glucose 127 H Lactic Acid Calcium Magnesium 1.30 L Iron TIBC Ferritin AST ALT Lactate Dehydrogenase Troponin T C-Reactive Protein Total Protein Albumin Prealbumin Cholesterol LDL Cholesterol Direct HDL Cholesterol Urine WBC (Auto) Vancomycin Trough Coronavirus (PCR) Crossmatch 09/01/19 09/01/19 09/01/19 14:50 17:00 17:28 WBC RBC Hgb Hct MCV MCH MCHC RDW Plt Count Lymph % (Auto) Charles % (Auto) Lymph # Charles # Baso # Seg Neutrophils % Seg Neuts % (Manual) Lymphocytes % (Manual) Monocytes % (Manual) Basophils % (Manual) Nucleated RBC % Seg Neutrophils # Seg Neutrophils # Man Lymphocytes # (Manual) Monocytes # (Manual) Eosinophils # (Manual) Basophils # (Manual) PT INR D-Dimer ABG pH ABG pO2 116.0 H ABG HCO3 ABG O2 Saturation ABG Base Excess ABG Hemoglobin 12.2 L Oxyhemoglobin Sodium 133 L Potassium Chloride Carbon Dioxide BUN Creatinine 0.3 L Glucose 117 H POC Glucose 135 H Lactic Acid Calcium Magnesium Iron TIBC Ferritin AST ALT Lactate Dehydrogenase Troponin T C-Reactive Protein Total Protein Albumin Prealbumin Cholesterol LDL Cholesterol Direct HDL Cholesterol Urine WBC (Auto) Vancomycin Trough Coronavirus (PCR) Crossmatch 09/01/19 09/01/19 09/02/19 23:13 23:35 05:37 WBC RBC Hgb Hct MCV MCH MCHC RDW Plt Count Lymph % (Auto) Charles % (Auto) Lymph # Charles # Baso # Seg Neutrophils % Seg Neuts % (Manual) Lymphocytes % (Manual) Monocytes % (Manual) Basophils % (Manual) Nucleated RBC % Seg Neutrophils # Seg Neutrophils # Man Lymphocytes # (Manual) Monocytes # (Manual) Eosinophils # (Manual) Basophils # (Manual) PT INR D-Dimer ABG pH ABG pO2 ABG HCO3 ABG O2 Saturation ABG Base Excess ABG Hemoglobin Oxyhemoglobin Sodium Potassium Chloride Carbon Dioxide BUN Creatinine Glucose POC Glucose 131 H 110 H 129 H Lactic Acid Calcium Magnesium Iron TIBC Ferritin AST ALT Lactate Dehydrogenase Troponin T C-Reactive Protein Total Protein Albumin Prealbumin Cholesterol LDL Cholesterol Direct HDL Cholesterol Urine WBC (Auto) Vancomycin Trough Coronavirus (PCR) Crossmatch 09/02/19 12:01 WBC RBC Hgb Hct MCV MCH MCHC RDW Plt Count Lymph % (Auto) Charles % (Auto) Lymph # Charles # Baso # Seg Neutrophils % Seg Neuts % (Manual) Lymphocytes % (Manual) Monocytes % (Manual) Basophils % (Manual) Nucleated RBC % Seg Neutrophils # Seg Neutrophils # Man Lymphocytes # (Manual) Monocytes # (Manual) Eosinophils # (Manual) Basophils # (Manual) PT INR D-Dimer ABG pH ABG pO2 ABG HCO3 ABG O2 Saturation ABG Base Excess ABG Hemoglobin Oxyhemoglobin Sodium Potassium Chloride Carbon Dioxide BUN Creatinine Glucose POC Glucose 129 H Lactic Acid Calcium Magnesium Iron TIBC Ferritin AST ALT Lactate Dehydrogenase Troponin T C-Reactive Protein Total Protein Albumin Prealbumin Cholesterol LDL Cholesterol Direct HDL Cholesterol Urine WBC (Auto) Vancomycin Trough Coronavirus (PCR) Crossmatch Chest x-ray: pending Allied health notes reviewed: nursing
[2019-09-02] MEDS ORDERED: MAGNESIUM SULFATE 2 GM/50 ML BAG IV ONE (15:00)
[2019-09-02] MEDS: ACETAMINOPHEN 325 MG/10.15 ML ORAL LIQD UNIT DOSE PO PRN (17:42)
[2019-09-02] MEDS: POLYETHYLENE GLYCOL 3350 17 GM POWDER PO SCH (21:03)
[2019-09-03] MEDS: INSULIN LISPRO 100 UNIT/ML SUB-Q SCH ×5 (00:08→18:25)
[2019-09-03] MEDS: D5W/0.45% NACL/KCL 10 MEQ 10 MEQ/1,000 ML BAG IV SCH (00:18)
[2019-09-03] MEDS: METOCLOPRAMIDE 10 MG/2 ML INJ IV SCH ×3 (05:03→21:18)
[2019-09-03] MEDS: METOPROLOL TARTRATE 25 MG TAB PO SCH ×3 (09:13→21:22)
[2019-09-03] MEDS: FAMOTIDINE 20 MG TAB PO SCH ×2 (10:08→21:18)
[2019-09-03] MEDS: FOLIC ACID 1 MG TAB PO SCH (10:08)
[2019-09-03] MEDS: GLYCOPYRROLATE 1 MG TAB PO SCH ×3 (10:08→21:18)
[2019-09-03] MEDS: ASPIRIN 81 MG TAB CHEW PO SCH (10:08)
[2019-09-03] MEDS: ENOXAPARIN 40 MG/0.4 ML INJ SUB-Q SCH (10:08)
[2019-09-03] MEDS: levETIRAcetam 500 MG/5 ML ORAL LIQD FEEDTUBE SCH ×2 (10:09→21:18)
[2019-09-03] MEDS: SODIUM HYPOCHLORITE, DAKIN'S 1/2 STRENGTH (0.25%) 473 ML TOPICAL SOLN TP SCH ×3 (10:18→21:22)
[2019-09-03] MEDS: DOCUSATE SODIUM 100 MG/10 ML ORAL LIQD PO SCH ×2 (10:19→21:19)
[2019-09-03] MEDS ORDERED: MAGNESIUM SULFATE 4 GM/100 ML BAG IV ONE (11:00)
--- NOTE | 2019-09-03 11:59 | Progress Note ---
Assessment and Plan S/p Cardiopulmonary arrest with ROSC Severe Sepsis with septic shock-resolved Acute hypoxemic respiratory failure on MVS s/p Trach COVID-19 positive, now Negative Bilateral pneumonia Oropharyngeal dysphagia s/p PEG Decubitus ulcers-unstageable Moderate protein calorie malnutriton Thrombocytosis Microcytic anemia s/p Trach- trach care, airway clearance with secretion management Trend temperature curve, continue to monitor off antibiotics Supportive transfusions to keep HgB >7g/dL Place peripheral IVs, discontinue RIJ CVC Continue all care as documented Discharge planning - continue wound care per WCT - sedation prn for target RASS 0 to -1 - continue to wean supplemental oxygen for target O2 sat's > 90% - Daily SAT's and SBT assessment as tolerated - VAP bundle addressed - continue lung protective strategies - continue bronchodilators with pulmonary hygiene per RT - wean per pulmonary driven protocols otherwise - accuchecks with glycemic control per SSI (While critically ill target blood glucose of 140-180 mg/dL; avoid hypoglycemia) - continue to avoid benzodiazepines, reduce the possibility of delirium - prn analgesia per CPOT score - Maintenance of sleep-wake cycle, avoid delirium - continue enteral nutritional support at goal rate as tolerated - VTE prophylaxis-Enoxaparin -Stress ulcer prophylaxis- Famotidine - continue mobility protocol, off loading and skin assessment for pressure ulcer prevention - Monitor hemodynamics closely -Wright catheter in this patient with unstageable sacral decubitus ulcer - continue other care per attending / other consultants - discharge planning ongoing concurrently .... Re-evaluate in am & prn CONDITION: CRITICAL PROGNOSIS: GUARDED CODE STATUS: DNAR Subjective Date of service: 09/03/19 Principal diagnosis: Bilateral pneumonia, severe sepsis with septic shock, en cephalopathy Interval history: The patient is a 69-year-old male with CVA, hypertension, dementia, schizophrenia, alcohol use disorder was admitted to the emergency room after being brought in by EMS with progressive shortness of breath and unresponsiveness. He was noted to have agonal breathing and a faint pulse requiring CPR. Patient was intubated and brought to the hospital. It seems, patient was on home hospice. Currently, remains critically ill, intubated, on mechanical ventilation. His COVID test resulted positive. Seen and examined at bedside; 24hour events reviewed; nursing and respiratory care staff consulted; no adverse overnight events reported to me; resting in bed.Tmax 101.5 On MVS , tolerating daily PSV trials at this time; s/p trach, s/p PEG Tolerating tube feeding Objective Vital Signs - 12hr 09/03/19 09/03/19 09/03/19 00:00 00:01 01:00 Temperature 99.9 F H Pulse Rate 72 77 82 Pulse Rate [ 72 From Monitor] Respiratory 17 14 18 Rate Blood Pressure 136/78 119/68 O2 Sat by Pulse 100 97 100 Oximetry O2 Sat by Pulse Oximetry [ Assessment] 09/03/19 09/03/19 09/03/19 02:00 03:00 04:00 Temperature 98.9 F Pulse Rate 81 80 93 H Pulse Rate [ 93 H From Monitor] Respiratory 17 15 19 Rate Blood Pressure 158/87 148/82 O2 Sat by Pulse 99 99 100 Oximetry O2 Sat by Pulse Oximetry [ Assessment] 09/03/19 09/03/19 09/03/19 04:01 04:11 05:00 Temperature Pulse Rate 111 H 90 100 H Pulse Rate [ From Monitor] Respiratory 20 16 Rate Blood Pressure 144/79 134/62 139/76 O2 Sat by Pulse 100 98 100 Oximetry O2 Sat by Pulse Oximetry [ Assessment] 09/03/19 09/03/19 09/03/19 06:00 07:00 08:00 Temperature 99.1 F Pulse Rate 81 85 96 H Pulse Rate [ 99 H From Monitor] Respiratory 16 15 22 Rate Blood Pressure 116/59 114/72 129/72 O2 Sat by Pulse 100 100 100 Oximetry O2 Sat by Pulse 100 Oximetry [ Assessment] 09/03/19 09/03/19 09/03/19 09:00 10:00 10:08 Temperature Pulse Rate 100 H 107 H 100 H Pulse Rate [ From Monitor] Respiratory 22 18 Rate Blood Pressure 130/73 126/74 130/73 O2 Sat by Pulse 100 100 Oximetry O2 Sat by Pulse Oximetry [ Assessment] 09/03/19 11:00 Temperature Pulse Rate 90 Pulse Rate [ From Monitor] Respiratory 20 Rate Blood Pressure 120/68 O2 Sat by Pulse Oximetry O2 Sat by Pulse Oximetry [ Assessment] Constitutional: appears uncomfortable, other (eelderly and chronically ill looking AAM, normocep[krystina;ic with mildly increased respiratory effort at rest) Eyes: non-icteric ENT: oropharynx moist, other (s/p trach to MVS) Neck: supple, no lymphadenopathy, no JVD Effort: normal Ascultation: Bilateral: diminished breath sounds, rhonchi Percussion: Bilateral: not dull Cardiovascular: regular rate and rhythm Gastrointestinal: normoactive bowel sounds, soft, non-tender, non-distended, other (+ PEG tube) Integumentary: decubitus ulcer (sacral) Extremities: no cyanosis, no edema, pink and warm, pulses normal Neurologic: pupils equal and round, unable to assess Psychiatric: other (Unable to assess re: AMS) CBC and BMP: 08/30/19 05:10 09/01/19 14:50 ABG, PT/INR, D-dimer: ABG ABG pH 7.407 pH Units (7.350-7.450) 09/01/19 17:00 ABG pCO2 40.4 mm Hg 09/01/19 17:00 ABG pO2 116.0 mm Hg (80.0-90.0) H 09/01/19 17:00 ABG O2 Saturation 98.2 % (95.0-99.0) 09/01/19 17:00 PT/INR, D-dimer PT 16.0 Sec. (12.2-14.9) H 07/03/19 22:20 INR 1.26 (0.87-1.13) H 07/03/19 22:20 D-Dimer 1808.06 ng/mlDDU (0-234) H 08/07/19 10:24 Abnormal lab findings: Abnormal Labs 07/03/19 07/03/19 07/03/19 19:57 21:10 21:13 WBC RBC Hgb Hct MCV MCH MCHC RDW Plt Count Lymph % (Auto) [place] % (Auto) Lymph # [place] # Baso # Seg Neutrophils % Seg Neuts % (Manual) Lymphocytes % (Manual) Monocytes % (Manual) Basophils % (Manual) Nucleated RBC % Seg Neutrophils # Seg Neutrophils # Man Lymphocytes # (Manual) Monocytes # (Manual) Eosinophils # (Manual) Basophils # (Manual) PT INR D-Dimer ABG pH 7.238 L ABG pO2 210.8 H ABG HCO3 15.4 L ABG O2 Saturation 99.2 H ABG Base Excess -11.1 L ABG Hemoglobin 8.0 L Oxyhemoglobin Sodium 124 L Potassium Chloride 92.9 L Carbon Dioxide 10 L BUN 23 H Creatinine 0.5 L Glucose 118 H POC Glucose Lactic Acid Calcium 7.0 L Magnesium Iron TIBC Ferritin AST 70 H ALT 88 H Lactate Dehydrogenase Troponin T 0.032 H C-Reactive Protein Total Protein 5.0 L Albumin 1.8 L Prealbumin Cholesterol 47 L LDL Cholesterol Direct 25 L HDL Cholesterol 20 L Urine WBC (Auto) 12.0 H Vancomycin Trough Coronavirus (PCR) Crossmatch 07/03/19 07/03/19 07/03/19 22:20 22:20 22:20 WBC 30.5 H RBC 2.96 L Hgb 7.7 L Hct 23.9 L MCV 81 L MCH 26 L MCHC RDW 18.6 H Plt Count 459 H Lymph % (Auto) [place] % (Auto) Lymph # [place] # Baso # Seg Neutrophils % Seg Neuts % (Manual) 93.0 H Lymphocytes % (Manual) 0.5 L Monocytes % (Manual) Basophils % (Manual) Nucleated RBC % Seg Neutrophils # Seg Neutrophils # Man 28.4 H Lymphocytes # (Manual) 0.2 L Monocytes # (Manual) Eosinophils # (Manual) Basophils # (Manual) PT 16.0 H INR 1.26 H D-Dimer ABG pH ABG pO2 ABG HCO3 ABG O2 Saturation ABG Base Excess ABG Hemoglobin Oxyhemoglobin Sodium Potassium Chloride Carbon Dioxide BUN Creatinine Glucose POC Glucose Lactic Acid 6.90 H* Calcium Magnesium Iron TIBC Ferritin AST ALT Lactate Dehydrogenase Troponin T C-Reactive Protein Total Protein Albumin Prealbumin Cholesterol LDL Cholesterol Direct HDL Cholesterol Urine WBC (Auto) Vancomycin Trough Coronavirus (PCR) Crossmatch 07/03/19 07/04/19 07/04/19 23:58 05:15 07:05 WBC 17.1 H RBC 3.22 L Hgb 8.3 L Hct 25.4 L MCV 79 L MCH 26 L MCHC RDW 18.6 H Plt Count Lymph % (Auto) [place] % (Auto) Lymph # [place] # Baso # Seg Neutrophils % Seg Neuts % (Manual) 74.0 H Lymphocytes % (Manual) 0 L Monocytes % (Manual) Basophils % (Manual) Nucleated RBC % Seg Neutrophils # Seg Neutrophils # Man 12.7 H Lymphocytes # (Manual) 0.0 L Monocytes # (Manual) Eosinophils # (Manual) Basophils # (Manual) PT INR D-Dimer ABG pH 7.310 L ABG pO2 73.2 L ABG HCO3 17.8 L ABG O2 Saturation 93.8 L ABG Base Excess -7.7 L ABG Hemoglobin 9.6 L Oxyhemoglobin 92.3 L Sodium Potassium Chloride Carbon Dioxide BUN Creatinine Glucose POC Glucose Lactic Acid 7.10 H* Calcium Magnesium Iron TIBC Ferritin AST ALT Lactate Dehydrogenase Troponin T C-Reactive Protein Total Protein Albumin Prealbumin Cholesterol LDL Cholesterol Direct HDL Cholesterol Urine WBC (Auto) Vancomycin Trough Coronavirus (PCR) Crossmatch 07/04/19 07/04/19 07/04/19 07:05 07:05 07:05 WBC RBC Hgb Hct MCV MCH MCHC RDW Plt Count Lymph % (Auto) [place] % (Auto) Lymph # [place] # Baso # Seg Neutrophils % Seg Neuts % (Manual) Lymphocytes % (Manual) Monocytes % (Manual) Basophils % (Manual) Nucleated RBC % Seg Neutrophils # Seg Neutrophils # Man Lymphocytes # (Manual) Monocytes # (Manual) Eosinophils # (Manual) Basophils # (Manual) PT INR D-Dimer ABG pH ABG pO2 ABG HCO3 ABG O2 Saturation ABG Base Excess ABG Hemoglobin Oxyhemoglobin Sodium 120 L Potassium 5.1 H Chloride 90.0 L Carbon Dioxide 14 L BUN 26 H Creatinine 0.5 L Glucose POC Glucose Lactic Acid 3.30 H* Calcium 8.0 L Magnesium Iron 9 L TIBC 97 L Ferritin AST 73 H ALT 91 H Lactate Dehydrogenase Troponin T C-Reactive Protein Total Protein 5.5 L Albumin 2.0 L Prealbumin Cholesterol LDL Cholesterol Direct HDL Cholesterol Urine WBC (Auto) Vancomycin Trough Coronavirus (PCR) Crossmatch 07/04/19 07/04/19 07/04/19 09:39 09:39 09:39 WBC RBC Hgb Hct MCV MCH MCHC RDW Plt Count Lymph % (Auto) [place] % (Auto) Lymph # [place] # Baso # Seg Neutrophils % Seg Neuts % (Manual) Lymphocytes % (Manual) Monocytes % (Manual) Basophils % (Manual) Nucleated RBC % Seg Neutrophils # Seg Neutrophils # Man Lymphocytes # (Manual) Monocytes # (Manual) Eosinophils # (Manual) Basophils # (Manual) PT INR D-Dimer 1419.14 H ABG pH ABG pO2 ABG HCO3 ABG O2 Saturation ABG Base Excess ABG Hemoglobin Oxyhemoglobin Sodium Potassium Chloride Carbon Dioxide BUN Creatinine Glucose POC Glucose Lactic Acid Calcium Magnesium Iron TIBC Ferritin 1719.0 H AST ALT Lactate Dehydrogenase 234 H Troponin T C-Reactive Protein 15.50 H Total Protein Albumin Prealbumin Cholesterol LDL Cholesterol Direct HDL Cholesterol Urine WBC (Auto) Vancomycin Trough Coronavirus (PCR) Crossmatch 07/04/19 07/04/19 07/04/19 10:09 18:08 18:28 WBC RBC Hgb Hct MCV MCH MCHC RDW Plt Count Lymph % (Auto) [place] % (Auto) Lymph # [place] # Baso # Seg Neutrophils % Seg Neuts % (Manual) Lymphocytes % (Manual) Monocytes % (Manual) Basophils % (Manual) Nucleated RBC % Seg Neutrophils # Seg Neutrophils # Man Lymphocytes # (Manual) Monocytes # (Manual) Eosinophils # (Manual) Basophils # (Manual) PT INR D-Dimer ABG pH ABG pO2 ABG HCO3 ABG O2 Saturation ABG Base Excess ABG Hemoglobin Oxyhemoglobin Sodium 117 L* Potassium 5.6 H Chloride 90.3 L Carbon Dioxide 16 L BUN 28 H Creatinine 0.5 L Glucose 58 L POC Glucose 65 L Lactic Acid Calcium 8.2 L Magnesium Iron TIBC Ferritin AST ALT Lactate Dehydrogenase Troponin T C-Reactive Protein Total Protein Albumin Prealbumin Cholesterol LDL Cholesterol Direct HDL Cholesterol Urine WBC (Auto) Vancomycin Trough Coronavirus (PCR) Positive A Crossmatch 07/04/19 07/04/19 07/04/19 23:45 Unknown Unknown WBC RBC Hgb Hct MCV MCH MCHC RDW Plt Count Lymph % (Auto) [place] % (Auto) Lymph # [place] # Baso # Seg Neutrophils % Seg Neuts % (Manual) Lymphocytes % (Manual) Monocytes % (Manual) Basophils % (Manual) Nucleated RBC % Seg Neutrophils # Seg Neutrophils # Man Lymphocytes # (Manual) Monocytes # (Manual) Eosinophils # (Manual) Basophils # (Manual) PT INR D-Dimer 759.77 H ABG pH ABG pO2 ABG HCO3 ABG O2 Saturation ABG Base Excess ABG Hemoglobin Oxyhemoglobin Sodium 122 L Potassium Chloride 93.0 L Carbon Dioxide 19 L BUN 27 H Creatinine 0.5 L Glucose POC Glucose Lactic Acid Calcium 8.3 L Magnesium Iron TIBC Ferritin 1301.0 H AST ALT Lactate Dehydrogenase Troponin T C-Reactive Protein Total Protein Albumin Prealbumin Cholesterol LDL Cholesterol Direct HDL Cholesterol Urine WBC (Auto) Vancomycin Trough Coronavirus (PCR) Crossmatch 07/04/19 07/05/19 07/05/19 Unknown 03:20 04:00 WBC RBC Hgb Hct MCV MCH MCHC RDW Plt Count Lymph % (Auto) [place] % (Auto) Lymph # [place] # Baso # Seg Neutrophils % Seg Neuts % (Manual) Lymphocytes % (Manual) Monocytes % (Manual) Basophils % (Manual) Nucleated RBC % Seg Neutrophils # Seg Neutrophils # Man Lymphocytes # (Manual) Monocytes # (Manual) Eosinophils # (Manual) Basophils # (Manual) PT INR D-Dimer ABG pH ABG pO2 60.6 L ABG HCO3 ABG O2 Saturation 93.5 L ABG Base Excess -2.4 L ABG Hemoglobin 6.9 L Oxyhemoglobin 92.0 L Sodium 125 L Potassium Chloride 92.6 L Carbon Dioxide 19 L BUN 24 H Creatinine 0.6 L Glucose POC Glucose Lactic Acid Calcium 8.2 L Magnesium 1.40 L Iron TIBC Ferritin AST ALT Lactate Dehydrogenase 242 H Troponin T C-Reactive Protein 16.70 H Total Protein Albumin Prealbumin Cholesterol LDL Cholesterol Direct HDL Cholesterol Urine WBC (Auto) Vancomycin Trough Coronavirus (PCR) Crossmatch 07/05/19 07/05/19 07/05/19 10:11 16:15 17:54 WBC 46.4 H* RBC 2.77 L Hgb 7.2 L Hct 21.9 L MCV 79 L MCH 26 L MCHC RDW 19.0 H Plt Count Lymph % (Auto) [place] % (Auto) Lymph # [place] # Baso # Seg Neutrophils % Seg Neuts % (Manual) 82.0 H Lymphocytes % (Manual) 1.0 L Monocytes % (Manual) Basophils % (Manual) Nucleated RBC % Seg Neutrophils # Seg Neutrophils # Man 38.0 H Lymphocytes # (Manual) 0.5 L Monocytes # (Manual) Eosinophils # (Manual) Basophils # (Manual) PT INR D-Dimer ABG pH ABG pO2 ABG HCO3 ABG O2 Saturation ABG Base Excess ABG Hemoglobin Oxyhemoglobin Sodium Potassium Chloride Carbon Dioxide BUN Creatinine Glucose POC Glucose 69 L Lactic Acid Calcium Magnesium Iron TIBC Ferritin AST ALT Lactate Dehydrogenase Troponin T C-Reactive Protein Total Protein Albumin Prealbumin Cholesterol LDL Cholesterol Direct HDL Cholesterol Urine WBC (Auto) Vancomycin Trough 23.2 H Coronavirus (PCR) Crossmatch 07/05/19 07/06/19 07/06/19 19:58 00:27 00:27 WBC RBC Hgb Hct MCV MCH MCHC RDW Plt Count Lymph % (Auto) [place] % (Auto) Lymph # [place] # Baso # Seg Neutrophils % Seg Neuts % (Manual) Lymphocytes % (Manual) Monocytes % (Manual) Basophils % (Manual) Nucleated RBC % Seg Neutrophils # Seg Neutrophils # Man Lymphocytes # (Manual) Monocytes # (Manual) Eosinophils # (Manual) Basophils # (Manual) PT INR D-Dimer 1333.22 H ABG pH ABG pO2 ABG HCO3 ABG O2 Saturation ABG Base Excess ABG Hemoglobin Oxyhemoglobin Sodium 127 L Potassium Chloride Carbon Dioxide BUN Creatinine Glucose POC Glucose Lactic Acid Calcium Magnesium Iron TIBC Ferritin 977.1 H AST ALT Lactate Dehydrogenase Troponin T C-Reactive Protein Total Protein Albumin Prealbumin Cholesterol LDL Cholesterol Direct HDL Cholesterol Urine WBC (Auto) Vancomycin Trough Coronavirus (PCR) Crossmatch 07/06/19 07/06/19 07/06/19 00:27 02:00 02:56 WBC RBC Hgb Hct MCV MCH MCHC RDW Plt Count Lymph % (Auto) [place] % (Auto) Lymph # [place] # Baso # Seg Neutrophils % Seg Neuts % (Manual) Lymphocytes % (Manual) Monocytes % (Manual) Basophils % (Manual) Nucleated RBC % Seg Neutrophils # Seg Neutrophils # Man Lymphocytes # (Manual) Monocytes # (Manual) Eosinophils # (Manual) Basophils # (Manual) PT INR D-Dimer ABG pH ABG pO2 70.3 L ABG HCO3 ABG O2 Saturation 94.8 L ABG Base Excess ABG Hemoglobin 8.0 L Oxyhemoglobin 93.2 L Sodium Potassium Chloride Carbon Dioxide BUN Creatinine Glucose POC Glucose 117 H Lactic Acid Calcium Magnesium Iron TIBC Ferritin AST ALT Lactate Dehydrogenase 236 H Troponin T C-Reactive Protein 22.90 H Total Protein Albumin Prealbumin Cholesterol LDL Cholesterol Direct HDL Cholesterol Urine WBC (Auto) Vancomycin Trough Coronavirus (PCR) Crossmatch 07/06/19 07/06/19 07/06/19 03:49 03:49 07:40 WBC 38.8 H RBC 2.51 L Hgb 6.7 L Hct 19.9 L* MCV 79 L MCH 27 L MCHC RDW 19.2 H Plt Count Lymph % (Auto) [place] % (Auto) Lymph # [place] # Baso # Seg Neutrophils % Seg Neuts % (Manual) 90.5 H Lymphocytes % (Manual) 1.0 L Monocytes % (Manual) Basophils % (Manual) Nucleated RBC % Seg Neutrophils # Seg Neutrophils # Man 35.1 H Lymphocytes # (Manual) 0.4 L Monocytes # (Manual) Eosinophils # (Manual) Basophils # (Manual) PT INR D-Dimer ABG pH ABG pO2 ABG HCO3 ABG O2 Saturation ABG Base Excess ABG Hemoglobin Oxyhemoglobin Sodium 131 L Potassium Chloride 96.9 L Carbon Dioxide 18 L BUN 23 H Creatinine 0.5 L Glucose POC Glucose Lactic Acid Calcium 8.0 L Magnesium Iron TIBC Ferritin AST ALT Lactate Dehydrogenase Troponin T C-Reactive Protein Total Protein Albumin Prealbumin Cholesterol LDL Cholesterol Direct HDL Cholesterol Urine WBC (Auto) Vancomycin Trough Coronavirus (PCR) Crossmatch See Detail 07/06/19 07/06/19 07/06/19 12:38 14:39 20:00 WBC RBC Hgb Hct MCV MCH MCHC RDW Plt Count Lymph % (Auto) [place] % (Auto) Lymph # [place] # Baso # Seg Neutrophils % Seg Neuts % (Manual) Lymphocytes % (Manual) Monocytes % (Manual) Basophils % (Manual) Nucleated RBC % Seg Neutrophils # Seg Neutrophils # Man Lymphocytes # (Manual) Monocytes # (Manual) Eosinophils # (Manual) Basophils # (Manual) PT INR D-Dimer ABG pH ABG pO2 ABG HCO3 ABG O2 Saturation ABG Base Excess ABG Hemoglobin Oxyhemoglobin Sodium Potassium Chloride Carbon Dioxide BUN Creatinine Glucose POC Glucose 112 H 111 H 140 H Lactic Acid Calcium Magnesium Iron TIBC Ferritin AST ALT Lactate Dehydrogenase Troponin T C-Reactive Protein Total Protein Albumin Prealbumin Cholesterol LDL Cholesterol Direct HDL Cholesterol Urine WBC (Auto) Vancomycin Trough Coronavirus (PCR) Crossmatch 07/06/19 07/06/19 07/07/19 22:43 22:56 02:20 WBC RBC Hgb 7.9 L Hct 23.1 L MCV MCH MCHC RDW Plt Count Lymph % (Auto) [place] % (Auto) Lymph # [place] # Baso # Seg Neutrophils % Seg Neuts % (Manual) Lymphocytes % (Manual) Monocytes % (Manual) Basophils % (Manual) Nucleated RBC % Seg Neutrophils # Seg Neutrophils # Man Lymphocytes # (Manual) Monocytes # (Manual) Eosinophils # (Manual) Basophils # (Manual) PT INR D-Dimer ABG pH ABG pO2 ABG HCO3 ABG O2 Saturation ABG Base Excess ABG Hemoglobin Oxyhemoglobin Sodium Potassium Chloride Carbon Dioxide BUN Creatinine Glucose POC Glucose 122 H 149 H Lactic Acid Calcium Magnesium Iron TIBC Ferritin AST ALT Lactate Dehydrogenase Troponin T C-Reactive Protein Total Protein Albumin Prealbumin Cholesterol LDL Cholesterol Direct HDL Cholesterol Urine WBC (Auto) Vancomycin Trough Coronavirus (PCR) Crossmatch 07/07/19 07/07/19 07/07/19 04:35 05:27 05:34 WBC 23.1 H RBC 3.00 L Hgb 8.1 L Hct 24.2 L MCV 81 L MCH 27 L MCHC RDW 20.6 H Plt Count Lymph % (Auto) [place] % (Auto) Lymph # [place] # Baso # Seg Neutrophils % Seg Neuts % (Manual) 90.0 H Lymphocytes % (Manual) 2.0 L Monocytes % (Manual) Basophils % (Manual) Nucleated RBC % Seg Neutrophils # Seg Neutrophils # Man 20.8 H Lymphocytes # (Manual) 0.5 L Monocytes # (Manual) Eosinophils # (Manual) Basophils # (Manual) PT INR D-Dimer ABG pH ABG pO2 65.8 L ABG HCO3 ABG O2 Saturation 92.2 L ABG Base Excess ABG Hemoglobin 8.3 L Oxyhemoglobin 90.6 L Sodium Potassium Chloride Carbon Dioxide BUN Creatinine Glucose POC Glucose 132 H Lactic Acid Calcium Magnesium Iron TIBC Ferritin AST ALT Lactate Dehydrogenase Troponin T C-Reactive Protein Total Protein Albumin Prealbumin Cholesterol LDL Cholesterol Direct HDL Cholesterol Urine WBC (Auto) Vancomycin Trough Coronavirus (PCR) Crossmatch 07/07/19 07/07/19 07/07/19 05:34 11:50 15:58 WBC RBC Hgb 8.1 L Hct 24.2 L MCV MCH MCHC RDW Plt Count Lymph % (Auto) [place] % (Auto) Lymph # [place] # Baso # Seg Neutrophils % Seg Neuts % (Manual) Lymphocytes % (Manual) Monocytes % (Manual) Basophils % (Manual) Nucleated RBC % Seg Neutrophils # Seg Neutrophils # Man Lymphocytes # (Manual) Monocytes # (Manual) Eosinophils # (Manual) Basophils # (Manual) PT INR D-Dimer ABG pH ABG pO2 ABG HCO3 ABG O2 Saturation ABG Base Excess ABG Hemoglobin Oxyhemoglobin Sodium 135 L Potassium 3.3 L Chloride Carbon Dioxide 20 L BUN 27 H Creatinine 0.6 L Glucose 121 H POC Glucose 123 H Lactic Acid Calcium 8.0 L Magnesium Iron TIBC Ferritin AST ALT Lactate Dehydrogenase Troponin T C-Reactive Protein Total Protein Albumin Prealbumin Cholesterol LDL Cholesterol Direct HDL Cholesterol Urine WBC (Auto) Vancomycin Trough Coronavirus (PCR) Crossmatch 04/18/20 04/18/20 04/18/20 17:42 22:00 23:53 WBC RBC Hgb 8.0 L Hct 23.4 L MCV MCH MCHC RDW Plt Count Lymph % (Auto) [place] % (Auto) Lymph # [place] # Baso # Seg Neutrophils % Seg Neuts % (Manual) Lymphocytes % (Manual) Monocytes % (Manual) Basophils % (Manual) Nucleated RBC % Seg Neutrophils # Seg Neutrophils # Man Lymphocytes # (Manual) Monocytes # (Manual) Eosinophils # (Manual) Basophils # (Manual) PT INR D-Dimer ABG pH ABG pO2 ABG HCO3 ABG O2 Saturation ABG Base Excess ABG Hemoglobin Oxyhemoglobin Sodium Potassium Chloride Carbon Dioxide BUN Creatinine Glucose POC Glucose 107 H 117 H Lactic Acid Calcium Magnesium Iron TIBC Ferritin AST ALT Lactate Dehydrogenase Troponin T C-Reactive Protein Total Protein Albumin Prealbumin Cholesterol LDL Cholesterol Direct HDL Cholesterol Urine WBC (Auto) Vancomycin Trough Coronavirus (PCR) Crossmatch 07/08/19 07/08/19 07/08/19 00:45 00:45 00:45 WBC RBC Hgb Hct MCV MCH MCHC RDW Plt Count Lymph % (Auto) [place] % (Auto) Lymph # [place] # Baso # Seg Neutrophils % Seg Neuts % (Manual) Lymphocytes % (Manual) Monocytes % (Manual) Basophils % (Manual) Nucleated RBC % Seg Neutrophils # Seg Neutrophils # Man Lymphocytes # (Manual) Monocytes # (Manual) Eosinophils # (Manual) Basophils # (Manual) PT INR D-Dimer 1142.18 H ABG pH ABG pO2 ABG HCO3 ABG O2 Saturation ABG Base Excess ABG Hemoglobin Oxyhemoglobin Sodium Potassium Chloride Carbon Dioxide BUN Creatinine Glucose POC Glucose Lactic Acid Calcium Magnesium Iron TIBC Ferritin 839.0 H AST ALT Lactate Dehydrogenase 253 H Troponin T C-Reactive Protein 18.90 H Total Protein Albumin Prealbumin Cholesterol LDL Cholesterol Direct HDL Cholesterol Urine WBC (Auto) Vancomycin Trough Coronavirus (PCR) Crossmatch 07/08/19 07/08/19 07/08/19 04:30 05:11 12:02 WBC RBC Hgb Hct MCV MCH MCHC RDW Plt Count Lymph % (Auto) [place] % (Auto) Lymph # [place] # Baso # Seg Neutrophils % Seg Neuts % (Manual) Lymphocytes % (Manual) Monocytes % (Manual) Basophils % (Manual) Nucleated RBC % Seg Neutrophils # Seg Neutrophils # Man Lymphocytes # (Manual) Monocytes # (Manual) Eosinophils # (Manual) Basophils # (Manual) PT INR D-Dimer ABG pH ABG pO2 66.0 L ABG HCO3 ABG O2 Saturation 92.3 L ABG Base Excess ABG Hemoglobin 7.7 L Oxyhemoglobin 90.7 L Sodium Potassium Chloride Carbon Dioxide BUN Creatinine Glucose POC Glucose 108 H 153 H Lactic Acid Calcium Magnesium Iron TIBC Ferritin AST ALT Lactate Dehydrogenase Troponin T C-Reactive Protein Total Protein Albumin Prealbumin Cholesterol LDL Cholesterol Direct HDL Cholesterol Urine WBC (Auto) Vancomycin Trough Coronavirus (PCR) Crossmatch 07/08/19 07/08/19 07/08/19 16:15 18:22 23:35 WBC RBC Hgb Hct MCV MCH MCHC RDW Plt Count Lymph % (Auto) [place] % (Auto) Lymph # [place] # Baso # Seg Neutrophils % Seg Neuts % (Manual) Lymphocytes % (Manual) Monocytes % (Manual) Basophils % (Manual) Nucleated RBC % Seg Neutrophils # Seg Neutrophils # Man Lymphocytes # (Manual) Monocytes # (Manual) Eosinophils # (Manual) Basophils # (Manual) PT INR D-Dimer ABG pH ABG pO2 ABG HCO3 ABG O2 Saturation ABG Base Excess ABG Hemoglobin Oxyhemoglobin Sodium 134 L Potassium 3.3 L Chloride Carbon Dioxide 21 L BUN 27 H Creatinine 0.6 L Glucose 146 H POC Glucose 134 H 133 H Lactic Acid Calcium Magnesium Iron TIBC Ferritin AST ALT Lactate Dehydrogenase Troponin T C-Reactive Protein Total Protein Albumin Prealbumin Cholesterol LDL Cholesterol Direct HDL Cholesterol Urine WBC (Auto) Vancomycin Trough Coronavirus (PCR) Crossmatch 07/09/19 07/09/19 07/09/19 04:30 04:30 05:00 WBC 18.9 H RBC 2.77 L Hgb 7.4 L Hct 22.8 L MCV 82 L MCH 27 L MCHC RDW 20.9 H Plt Count 130 L Lymph % (Auto) [place] % (Auto) Lymph # [place] # Baso # Seg Neutrophils % Seg Neuts % (Manual) 84.0 H Lymphocytes % (Manual) 0 L Monocytes % (Manual) Basophils % (Manual) Nucleated RBC % Seg Neutrophils # Seg Neutrophils # Man 15.9 H Lymphocytes # (Manual) 0.0 L Monocytes # (Manual) Eosinophils # (Manual) Basophils # (Manual) PT INR D-Dimer ABG pH ABG pO2 ABG HCO3 ABG O2 Saturation ABG Base Excess ABG Hemoglobin Oxyhemoglobin Sodium Potassium 3.1 L Chloride Carbon Dioxide BUN 26 H Creatinine 0.5 L Glucose 125 H POC Glucose 155 H Lactic Acid Calcium Magnesium Iron TIBC Ferritin AST ALT Lactate Dehydrogenase Troponin T C-Reactive Protein Total Protein Albumin Prealbumin Cholesterol LDL Cholesterol Direct HDL Cholesterol Urine WBC (Auto) Vancomycin Trough Coronavirus (PCR) Crossmatch 07/09/19 07/09/19 07/09/19 05:55 12:22 17:50 WBC RBC Hgb Hct MCV MCH MCHC RDW Plt Count Lymph % (Auto) [place] % (Auto) Lymph # [place] # Baso # Seg Neutrophils % Seg Neuts % (Manual) Lymphocytes % (Manual) Monocytes % (Manual) Basophils % (Manual) Nucleated RBC % Seg Neutrophils # Seg Neutrophils # Man Lymphocytes # (Manual) Monocytes # (Manual) Eosinophils # (Manual) Basophils # (Manual) PT INR D-Dimer ABG pH ABG pO2 62.8 L ABG HCO3 ABG O2 Saturation ABG Base Excess ABG Hemoglobin 6.1 L Oxyhemoglobin 93.9 L Sodium Potassium Chloride Carbon Dioxide BUN Creatinine Glucose POC Glucose 115 H 133 H Lactic Acid Calcium Magnesium Iron TIBC Ferritin AST ALT Lactate Dehydrogenase Troponin T C-Reactive Protein Total Protein Albumin Prealbumin Cholesterol LDL Cholesterol Direct HDL Cholesterol Urine WBC (Auto) Vancomycin Trough Coronavirus (PCR) Crossmatch 07/10/19 07/10/19 07/10/19 00:38 04:00 04:00 WBC RBC Hgb Hct MCV MCH MCHC RDW Plt Count Lymph % (Auto) [place] % (Auto) Lymph # [place] # Baso # Seg Neutrophils % Seg Neuts % (Manual) Lymphocytes % (Manual) Monocytes % (Manual) Basophils % (Manual) Nucleated RBC % Seg Neutrophils # Seg Neutrophils # Man Lymphocytes # (Manual) Monocytes # (Manual) Eosinophils # (Manual) Basophils # (Manual) PT INR D-Dimer ABG pH ABG pO2 ABG HCO3 ABG O2 Saturation ABG Base Excess ABG Hemoglobin Oxyhemoglobin Sodium Potassium Chloride 107.9 H Carbon Dioxide BUN 26 H Creatinine 0.4 L Glucose 137 H POC Glucose 122 H Lactic Acid Calcium Magnesium 1.50 L Iron TIBC Ferritin AST ALT Lactate Dehydrogenase 277 H Troponin T C-Reactive Protein 15.10 H Total Protein Albumin Prealbumin Cholesterol LDL Cholesterol Direct HDL Cholesterol Urine WBC (Auto) Vancomycin Trough Coronavirus (PCR) Crossmatch 07/10/19 07/10/19 07/10/19 04:07 05:21 17:25 WBC RBC Hgb Hct MCV MCH MCHC RDW Plt Count Lymph % (Auto) [place] % (Auto) Lymph # [place] # Baso # Seg Neutrophils % Seg Neuts % (Manual) Lymphocytes % (Manual) Monocytes % (Manual) Basophils % (Manual) Nucleated RBC % Seg Neutrophils # Seg Neutrophils # Man Lymphocytes # (Manual) Monocytes # (Manual) Eosinophils # (Manual) Basophils # (Manual) PT INR D-Dimer ABG pH ABG pO2 65.6 L ABG HCO3 26.3 H ABG O2 Saturation ABG Base Excess ABG Hemoglobin 6.7 L Oxyhemoglobin Sodium Potassium Chloride Carbon Dioxide BUN Creatinine Glucose POC Glucose 144 H 113 H Lactic Acid Calcium Magnesium Iron TIBC Ferritin AST ALT Lactate Dehydrogenase Troponin T C-Reactive Protein Total Protein Albumin Prealbumin Cholesterol LDL Cholesterol Direct HDL Cholesterol Urine WBC (Auto) Vancomycin Trough Coronavirus (PCR) Crossmatch 07/11/19 07/11/19 07/11/19 00:07 05:14 05:25 WBC RBC Hgb Hct MCV MCH MCHC RDW Plt Count Lymph % (Auto) [place] % (Auto) Lymph # [place] # Baso # Seg Neutrophils % Seg Neuts % (Manual) Lymphocytes % (Manual) Monocytes % (Manual) Basophils % (Manual) Nucleated RBC % Seg Neutrophils # Seg Neutrophils # Man Lymphocytes # (Manual) Monocytes # (Manual) Eosinophils # (Manual) Basophils # (Manual) PT INR D-Dimer ABG pH ABG pO2 ABG HCO3 ABG O2 Saturation ABG Base Excess ABG Hemoglobin 5.8 L Oxyhemoglobin Sodium Potassium Chloride 108.0 H Carbon Dioxide BUN 26 H Creatinine 0.4 L Glucose 110 H POC Glucose 121 H Lactic Acid Calcium Magnesium Iron TIBC Ferritin AST ALT Lactate Dehydrogenase Troponin T C-Reactive Protein Total Protein Albumin Prealbumin Cholesterol LDL Cholesterol Direct HDL Cholesterol Urine WBC (Auto) Vancomycin Trough Coronavirus (PCR) Crossmatch 07/11/19 07/11/19 07/11/19 12:27 18:00 23:42 WBC RBC Hgb Hct MCV MCH MCHC RDW Plt Count Lymph % (Auto) [place] % (Auto) Lymph # [place] # Baso # Seg Neutrophils % Seg Neuts % (Manual) Lymphocytes % (Manual) Monocytes % (Manual) Basophils % (Manual) Nucleated RBC % Seg Neutrophils # Seg Neutrophils # Man Lymphocytes # (Manual) Monocytes # (Manual) Eosinophils # (Manual) Basophils # (Manual) PT INR D-Dimer ABG pH ABG pO2 ABG HCO3 ABG O2 Saturation ABG Base Excess ABG Hemoglobin Oxyhemoglobin Sodium Potassium Chloride Carbon Dioxide BUN Creatinine Glucose POC Glucose 158 H 141 H 142 H Lactic Acid Calcium Magnesium Iron TIBC Ferritin AST ALT Lactate Dehydrogenase Troponin T C-Reactive Protein Total Protein Albumin Prealbumin Cholesterol LDL Cholesterol Direct HDL Cholesterol Urine WBC (Auto) Vancomycin Trough Coronavirus (PCR) Crossmatch 07/12/19 07/12/19 07/12/19 04:46 04:46 05:23 WBC 23.6 H RBC 2.51 L Hgb 6.7 L Hct 20.8 L MCV 83 L MCH 27 L MCHC RDW 20.3 H Plt Count Lymph % (Auto) [place] % (Auto) Lymph # [place] # Baso # Seg Neutrophils % Seg Neuts % (Manual) 94.0 H Lymphocytes % (Manual) 4.0 L Monocytes % (Manual) Basophils % (Manual) Nucleated RBC % Seg Neutrophils # Seg Neutrophils # Man 22.2 H Lymphocytes # (Manual) 0.9 L Monocytes # (Manual) Eosinophils # (Manual) Basophils # (Manual) PT INR D-Dimer ABG pH ABG pO2 ABG HCO3 ABG O2 Saturation ABG Base Excess ABG Hemoglobin Oxyhemoglobin Sodium Potassium Chloride 107.1 H Carbon Dioxide BUN 25 H Creatinine 0.4 L Glucose 122 H POC Glucose 118 H Lactic Acid Calcium Magnesium Iron TIBC Ferritin AST ALT Lactate Dehydrogenase Troponin T C-Reactive Protein Total Protein Albumin Prealbumin Cholesterol LDL Cholesterol Direct HDL Cholesterol Urine WBC (Auto) Vancomycin Trough Coronavirus (PCR) Crossmatch 07/12/19 07/12/19 07/12/19 08:49 11:36 18:15 WBC RBC Hgb Hct MCV MCH MCHC RDW Plt Count Lymph % (Auto) [place] % (Auto) Lymph # [place] # Baso # Seg Neutrophils % Seg Neuts % (Manual) Lymphocytes % (Manual) Monocytes % (Manual) Basophils % (Manual) Nucleated RBC % Seg Neutrophils # Seg Neutrophils # Man Lymphocytes # (Manual) Monocytes # (Manual) Eosinophils # (Manual) Basophils # (Manual) PT INR D-Dimer ABG pH ABG pO2 ABG HCO3 ABG O2 Saturation ABG Base Excess ABG Hemoglobin Oxyhemoglobin Sodium Potassium Chloride Carbon Dioxide BUN Creatinine Glucose POC Glucose 124 H 110 H Lactic Acid Calcium Magnesium Iron TIBC Ferritin AST ALT Lactate Dehydrogenase Troponin T C-Reactive Protein Total Protein Albumin Prealbumin Cholesterol LDL Cholesterol Direct HDL Cholesterol Urine WBC (Auto) Vancomycin Trough Coronavirus (PCR) Crossmatch See Detail 07/12/19 07/13/19 07/13/19 23:16 05:26 06:50 WBC 23.9 H RBC 2.58 L Hgb 6.9 L Hct 21.5 L MCV 83 L MCH 27 L MCHC RDW 19.0 H Plt Count Lymph % (Auto) [place] % (Auto) Lymph # [place] # Baso # Seg Neutrophils % Seg Neuts % (Manual) 96.0 H Lymphocytes % (Manual) 3.0 L Monocytes % (Manual) Basophils % (Manual) Nucleated RBC % Seg Neutrophils # Seg Neutrophils # Man 22.9 H Lymphocytes # (Manual) 0.7 L Monocytes # (Manual) Eosinophils # (Manual) Basophils # (Manual) PT INR D-Dimer ABG pH ABG pO2 ABG HCO3 ABG O2 Saturation ABG Base Excess ABG Hemoglobin Oxyhemoglobin Sodium Potassium Chloride Carbon Dioxide BUN Creatinine Glucose POC Glucose 108 H 126 H Lactic Acid Calcium Magnesium Iron TIBC Ferritin AST ALT Lactate Dehydrogenase Troponin T C-Reactive Protein Total Protein Albumin Prealbumin Cholesterol LDL Cholesterol Direct HDL Cholesterol Urine WBC (Auto) Vancomycin Trough Coronavirus (PCR) Crossmatch 07/13/19 07/13/19 07/13/19 06:50 12:38 18:05 WBC RBC Hgb Hct MCV MCH MCHC RDW Plt Count Lymph % (Auto) [place] % (Auto) Lymph # [place] # Baso # Seg Neutrophils % Seg Neuts % (Manual) Lymphocytes % (Manual) Monocytes % (Manual) Basophils % (Manual) Nucleated RBC % Seg Neutrophils # Seg Neutrophils # Man Lymphocytes # (Manual) Monocytes # (Manual) Eosinophils # (Manual) Basophils # (Manual) PT INR D-Dimer ABG pH ABG pO2 ABG HCO3 ABG O2 Saturation ABG Base Excess ABG Hemoglobin Oxyhemoglobin Sodium Potassium Chloride Carbon Dioxide BUN 33 H Creatinine 0.5 L Glucose 136 H POC Glucose 164 H 145 H Lactic Acid Calcium Magnesium Iron TIBC Ferritin AST ALT Lactate Dehydrogenase Troponin T C-Reactive Protein Total Protein Albumin Prealbumin Cholesterol LDL Cholesterol Direct HDL Cholesterol Urine WBC (Auto) Vancomycin Trough Coronavirus (PCR) Crossmatch 07/13/19 07/14/19 07/14/19 18:30 00:21 04:40 WBC 22.9 H RBC 2.45 L Hgb 6.6 L Hct 21.1 L MCV MCH 27 L MCHC 31 L RDW 19.2 H Plt Count Lymph % (Auto) [place] % (Auto) Lymph # [place] # Baso # Seg Neutrophils % Seg Neuts % (Manual) 91.0 H Lymphocytes % (Manual) 7.0 L Monocytes % (Manual) Basophils % (Manual) Nucleated RBC % Seg Neutrophils # Seg Neutrophils # Man 20.8 H Lymphocytes # (Manual) Monocytes # (Manual) Eosinophils # (Manual) Basophils # (Manual) PT INR D-Dimer ABG pH ABG pO2 58.1 L ABG HCO3 ABG O2 Saturation 88.7 L ABG Base Excess ABG Hemoglobin 7.8 L Oxyhemoglobin 86.8 L Sodium Potassium Chloride Carbon Dioxide BUN Creatinine Glucose POC Glucose 118 H Lactic Acid Calcium Magnesium Iron TIBC Ferritin AST ALT Lactate Dehydrogenase Troponin T C-Reactive Protein Total Protein Albumin Prealbumin Cholesterol LDL Cholesterol Direct HDL Cholesterol Urine WBC (Auto) Vancomycin Trough Coronavirus (PCR) Crossmatch 07/14/19 07/14/19 07/14/19 04:40 05:38 05:45 WBC RBC Hgb Hct MCV MCH MCHC RDW Plt Count Lymph % (Auto) [place] % (Auto) Lymph # [place] # Baso # Seg Neutrophils % Seg Neuts % (Manual) Lymphocytes % (Manual) Monocytes % (Manual) Basophils % (Manual) Nucleated RBC % Seg Neutrophils # Seg Neutrophils # Man Lymphocytes # (Manual) Monocytes # (Manual) Eosinophils # (Manual) Basophils # (Manual) PT INR D-Dimer ABG pH 7.230 L ABG pO2 72.1 L ABG HCO3 ABG O2 Saturation 89.3 L ABG Base Excess -2.7 L ABG Hemoglobin 6.7 L Oxyhemoglobin 87.7 L Sodium Potassium Chloride 107.4 H Carbon Dioxide BUN 45 H Creatinine Glucose 101 H POC Glucose 154 H Lactic Acid Calcium Magnesium Iron TIBC Ferritin AST ALT Lactate Dehydrogenase Troponin T C-Reactive Protein Total Protein Albumin Prealbumin Cholesterol LDL Cholesterol Direct HDL Cholesterol Urine WBC (Auto) Vancomycin Trough Coronavirus (PCR) Crossmatch 07/14/19 07/14/19 07/14/19 12:25 18:20 19:01 WBC 22.4 H RBC 2.70 L Hgb 7.5 L Hct 23.3 L MCV MCH MCHC RDW 19.5 H Plt Count Lymph % (Auto) [place] % (Auto) Lymph # [place] # Baso # Seg Neutrophils % Seg Neuts % (Manual) Lymphocytes % (Manual) Monocytes % (Manual) Basophils % (Manual) Nucleated RBC % Seg Neutrophils # Seg Neutrophils # Man Lymphocytes # (Manual) Monocytes # (Manual) Eosinophils # (Manual) Basophils # (Manual) PT INR D-Dimer ABG pH ABG pO2 ABG HCO3 ABG O2 Saturation ABG Base Excess ABG Hemoglobin Oxyhemoglobin Sodium Potassium Chloride Carbon Dioxide BUN Creatinine Glucose POC Glucose 136 H 131 H Lactic Acid Calcium Magnesium Iron TIBC Ferritin AST ALT Lactate Dehydrogenase Troponin T C-Reactive Protein Total Protein Albumin Prealbumin Cholesterol LDL Cholesterol Direct HDL Cholesterol Urine WBC (Auto) Vancomycin Trough Coronavirus (PCR) Crossmatch 07/15/19 07/15/19 07/15/19 00:17 04:35 05:18 WBC 20.6 H RBC 2.41 L Hgb 6.8 L Hct 20.7 L MCV MCH MCHC RDW 20.2 H Plt Count Lymph % (Auto) [place] % (Auto) Lymph # [place] # Baso # Seg Neutrophils % Seg Neuts % (Manual) 92.0 H Lymphocytes % (Manual) 5.0 L Monocytes % (Manual) Basophils % (Manual) Nucleated RBC % Seg Neutrophils # Seg Neutrophils # Man 19.0 H Lymphocytes # (Manual) 1.0 L Monocytes # (Manual) Eosinophils # (Manual) Basophils # (Manual) PT INR D-Dimer ABG pH 7.342 L ABG pO2 ABG HCO3 ABG O2 Saturation ABG Base Excess -3.1 L ABG Hemoglobin 7.2 L Oxyhemoglobin 94.9 L Sodium Potassium Chloride Carbon Dioxide BUN Creatinine Glucose POC Glucose 116 H Lactic Acid Calcium Magnesium Iron TIBC Ferritin AST ALT Lactate Dehydrogenase Troponin T C-Reactive Protein Total Protein Albumin Prealbumin Cholesterol LDL Cholesterol Direct HDL Cholesterol Urine WBC (Auto) Vancomycin Trough Coronavirus (PCR) Crossmatch 07/15/19 07/15/19 07/15/19 05:18 05:57 11:28 WBC RBC Hgb Hct MCV MCH MCHC RDW Plt Count Lymph % (Auto) [place] % (Auto) Lymph # [place] # Baso # Seg Neutrophils % Seg Neuts % (Manual) Lymphocytes % (Manual) Monocytes % (Manual) Basophils % (Manual) Nucleated RBC % Seg Neutrophils # Seg Neutrophils # Man Lymphocytes # (Manual) Monocytes # (Manual) Eosinophils # (Manual) Basophils # (Manual) PT INR D-Dimer ABG pH ABG pO2 ABG HCO3 ABG O2 Saturation ABG Base Excess ABG Hemoglobin Oxyhemoglobin Sodium Potassium Chloride Carbon Dioxide 20 L BUN 59 H Creatinine Glucose 140 H POC Glucose 139 H 117 H Lactic Acid Calcium Magnesium Iron TIBC Ferritin AST ALT Lactate Dehydrogenase Troponin T C-Reactive Protein Total Protein Albumin Prealbumin Cholesterol LDL Cholesterol Direct HDL Cholesterol Urine WBC (Auto) Vancomycin Trough Coronavirus (PCR) Crossmatch 07/15/19 07/16/19 07/16/19 18:13 00:06 03:43 WBC RBC Hgb Hct MCV MCH MCHC RDW Plt Count Lymph % (Auto) [place] % (Auto) Lymph # [place] # Baso # Seg Neutrophils % Seg Neuts % (Manual) Lymphocytes % (Manual) Monocytes % (Manual) Basophils % (Manual) Nucleated RBC % Seg Neutrophils # Seg Neutrophils # Man Lymphocytes # (Manual) Monocytes # (Manual) Eosinophils # (Manual) Basophils # (Manual) PT INR D-Dimer ABG pH 7.344 L ABG pO2 68.6 L ABG HCO3 ABG O2 Saturation ABG Base Excess -3.5 L ABG Hemoglobin 6.1 L Oxyhemoglobin 93.3 L Sodium Potassium Chloride Carbon Dioxide BUN Creatinine Glucose POC Glucose 114 H 119 H Lactic Acid Calcium Magnesium Iron TIBC Ferritin AST ALT Lactate Dehydrogenase Troponin T C-Reactive Protein Total Protein Albumin Prealbumin Cholesterol LDL Cholesterol Direct HDL Cholesterol Urine WBC (Auto) Vancomycin Trough Coronavirus (PCR) Crossmatch 07/16/19 07/16/19 07/16/19 04:41 04:41 12:09 WBC 19.6 H RBC 2.81 L Hgb 7.7 L Hct 24.0 L MCV MCH 27 L MCHC RDW 19.4 H Plt Count 514 H Lymph % (Auto) 6.7 L [place] % (Auto) Lymph # [place] # 1.0 H Baso # Seg Neutrophils % 87.0 H Seg Neuts % (Manual) Lymphocytes % (Manual) Monocytes % (Manual) Basophils % (Manual) Nucleated RBC % Seg Neutrophils # 17.0 H Seg Neutrophils # Man Lymphocytes # (Manual) Monocytes # (Manual) Eosinophils # (Manual) Basophils # (Manual) PT INR D-Dimer ABG pH ABG pO2 ABG HCO3 ABG O2 Saturation ABG Base Excess ABG Hemoglobin Oxyhemoglobin Sodium Potassium 5.9 H Chloride Carbon Dioxide 21 L BUN 73 H Creatinine 2.0 H Glucose POC Glucose 141 H Lactic Acid Calcium Magnesium Iron TIBC Ferritin AST ALT Lactate Dehydrogenase Troponin T C-Reactive Protein Total Protein Albumin Prealbumin Cholesterol LDL Cholesterol Direct HDL Cholesterol Urine WBC (Auto) Vancomycin Trough Coronavirus (PCR) Crossmatch 07/16/19 07/16/19 07/17/19 16:19 17:45 00:16 WBC RBC Hgb Hct MCV MCH MCHC RDW Plt Count Lymph % (Auto) [place] % (Auto) Lymph # [place] # Baso # Seg Neutrophils % Seg Neuts % (Manual) Lymphocytes % (Manual) Monocytes % (Manual) Basophils % (Manual) Nucleated RBC % Seg Neutrophils # Seg Neutrophils # Man Lymphocytes # (Manual) Monocytes # (Manual) Eosinophils # (Manual) Basophils # (Manual) PT INR D-Dimer ABG pH ABG pO2 ABG HCO3 ABG O2 Saturation ABG Base Excess ABG Hemoglobin Oxyhemoglobin Sodium Potassium 5.1 H Chloride Carbon Dioxide 20 L BUN 72 H Creatinine 1.7 H Glucose 128 H POC Glucose 181 H 164 H Lactic Acid Calcium Magnesium Iron TIBC Ferritin AST ALT Lactate Dehydrogenase Troponin T C-Reactive Protein Total Protein Albumin Prealbumin Cholesterol LDL Cholesterol Direct HDL Cholesterol Urine WBC (Auto) Vancomycin Trough Coronavirus (PCR) Crossmatch 07/17/19 07/17/19 07/17/19 04:20 04:39 04:39 WBC 16.1 H RBC 2.92 L Hgb 8.0 L Hct 25.5 L MCV MCH MCHC 31 L RDW 19.7 H Plt Count 564 H Lymph % (Auto) 3.6 L [place] % (Auto) 7.4 H Lymph # 0.6 L [place] # 1.2 H Baso # Seg Neutrophils % 87.5 H Seg Neuts % (Manual) Lymphocytes % (Manual) Monocytes % (Manual) Basophils % (Manual) Nucleated RBC % Seg Neutrophils # 14.1 H Seg Neutrophils # Man Lymphocytes # (Manual) Monocytes # (Manual) Eosinophils # (Manual) Basophils # (Manual) PT INR D-Dimer ABG pH 7.231 L ABG pO2 95.3 H ABG HCO3 ABG O2 Saturation ABG Base Excess -5.0 L ABG Hemoglobin 7.9 L Oxyhemoglobin 94.8 L Sodium Potassium Chloride 107.8 H Carbon Dioxide 21 L BUN 68 H Creatinine Glucose POC Glucose Lactic Acid Calcium Magnesium Iron TIBC Ferritin AST ALT Lactate Dehydrogenase Troponin T C-Reactive Protein Total Protein Albumin Prealbumin Cholesterol LDL Cholesterol Direct HDL Cholesterol Urine WBC (Auto) Vancomycin Trough Coronavirus (PCR) Crossmatch 07/17/19 07/17/19 07/17/19 05:28 12:11 18:48 WBC RBC Hgb Hct MCV MCH MCHC RDW Plt Count Lymph % (Auto) [place] % (Auto) Lymph # [place] # Baso # Seg Neutrophils % Seg Neuts % (Manual) Lymphocytes % (Manual) Monocytes % (Manual) Basophils % (Manual) Nucleated RBC % Seg Neutrophils # Seg Neutrophils # Man Lymphocytes # (Manual) Monocytes # (Manual) Eosinophils # (Manual) Basophils # (Manual) PT INR D-Dimer ABG pH ABG pO2 ABG HCO3 ABG O2 Saturation ABG Base Excess ABG Hemoglobin Oxyhemoglobin Sodium Potassium Chloride Carbon Dioxide BUN Creatinine Glucose POC Glucose 121 H 125 H 174 H Lactic Acid Calcium Magnesium Iron TIBC Ferritin AST ALT Lactate Dehydrogenase Troponin T C-Reactive Protein Total Protein Albumin Prealbumin Cholesterol LDL Cholesterol Direct HDL Cholesterol Urine WBC (Auto) Vancomycin Trough Coronavirus (PCR) Crossmatch 07/17/19 07/17/19 07/18/19 19:55 23:57 02:30 WBC RBC Hgb Hct MCV MCH MCHC RDW Plt Count Lymph % (Auto) [place] % (Auto) Lymph # [place] # Baso # Seg Neutrophils % Seg Neuts % (Manual) Lymphocytes % (Manual) Monocytes % (Manual) Basophils % (Manual) Nucleated RBC % Seg Neutrophils # Seg Neutrophils # Man Lymphocytes # (Manual) Monocytes # (Manual) Eosinophils # (Manual) Basophils # (Manual) PT INR D-Dimer ABG pH 7.344 L 7.294 L ABG pO2 78.5 L 119.2 H ABG HCO3 ABG O2 Saturation ABG Base Excess -3.3 L -2.6 L ABG Hemoglobin 8.6 L 8.1 L Oxyhemoglobin 94.8 L Sodium Potassium Chloride Carbon Dioxide BUN Creatinine Glucose POC Glucose 148 H Lactic Acid Calcium Magnesium Iron TIBC Ferritin AST ALT Lactate Dehydrogenase Troponin T C-Reactive Protein Total Protein Albumin Prealbumin Cholesterol LDL Cholesterol Direct HDL Cholesterol Urine WBC (Auto) Vancomycin Trough Coronavirus (PCR) Crossmatch 07/18/19 07/18/19 07/18/19 04:49 05:22 05:22 WBC 15.9 H RBC 3.00 L Hgb 8.1 L Hct 26.0 L MCV MCH 27 L MCHC 31 L RDW 19.4 H Plt Count 733 H Lymph % (Auto) 6.3 L [place] % (Auto) 7.4 H Lymph # 1.0 L [place] # 1.2 H Baso # 0.2 H Seg Neutrophils % 83.8 H Seg Neuts % (Manual) Lymphocytes % (Manual) Monocytes % (Manual) Basophils % (Manual) Nucleated RBC % Seg Neutrophils # 13.3 H Seg Neutrophils # Man Lymphocytes # (Manual) Monocytes # (Manual) Eosinophils # (Manual) Basophils # (Manual) PT INR D-Dimer ABG pH ABG pO2 ABG HCO3 ABG O2 Saturation ABG Base Excess ABG Hemoglobin Oxyhemoglobin Sodium Potassium Chloride 110.6 H Carbon Dioxide BUN 61 H Creatinine Glucose 109 H POC Glucose 116 H Lactic Acid Calcium Magnesium Iron TIBC Ferritin AST ALT Lactate Dehydrogenase Troponin T C-Reactive Protein Total Protein Albumin Prealbumin Cholesterol LDL Cholesterol Direct HDL Cholesterol Urine WBC (Auto) Vancomycin Trough Coronavirus (PCR) Crossmatch 07/18/19 07/18/19 07/18/19 12:23 18:06 22:20 WBC RBC Hgb Hct MCV MCH MCHC RDW Plt Count Lymph % (Auto) [place] % (Auto) Lymph # [place] # Baso # Seg Neutrophils % Seg Neuts % (Manual) Lymphocytes % (Manual) Monocytes % (Manual) Basophils % (Manual) Nucleated RBC % Seg Neutrophils # Seg Neutrophils # Man Lymphocytes # (Manual) Monocytes # (Manual) Eosinophils # (Manual) Basophils # (Manual) PT INR D-Dimer ABG pH 7.338 L ABG pO2 135.1 H ABG HCO3 ABG O2 Saturation ABG Base Excess ABG Hemoglobin 9.2 L Oxyhemoglobin Sodium Potassium Chloride Carbon Dioxide BUN Creatinine Glucose POC Glucose 114 H 113 H Lactic Acid Calcium Magnesium Iron TIBC Ferritin AST ALT Lactate Dehydrogenase Troponin T C-Reactive Protein Total Protein Albumin Prealbumin Cholesterol LDL Cholesterol Direct HDL Cholesterol Urine WBC (Auto) Vancomycin Trough Coronavirus (PCR) Crossmatch 07/18/19 07/19/19 07/19/19 23:33 03:45 05:18 WBC RBC Hgb Hct MCV MCH MCHC RDW Plt Count Lymph % (Auto) [place] % (Auto) Lymph # [place] # Baso # Seg Neutrophils % Seg Neuts % (Manual) Lymphocytes % (Manual) Monocytes % (Manual) Basophils % (Manual) Nucleated RBC % Seg Neutrophils # Seg Neutrophils # Man Lymphocytes # (Manual) Monocytes # (Manual) Eosinophils # (Manual) Basophils # (Manual) PT INR D-Dimer ABG pH 7.342 L ABG pO2 95.0 H ABG HCO3 ABG O2 Saturation ABG Base Excess ABG Hemoglobin 8.5 L Oxyhemoglobin Sodium Potassium Chloride Carbon Dioxide BUN Creatinine Glucose POC Glucose 125 H 111 H Lactic Acid Calcium Magnesium Iron TIBC Ferritin AST ALT Lactate Dehydrogenase Troponin T C-Reactive Protein Total Protein Albumin Prealbumin Cholesterol LDL Cholesterol Direct HDL Cholesterol Urine WBC (Auto) Vancomycin Trough Coronavirus (PCR) Crossmatch 07/19/19 07/19/19 07/19/19 08:45 08:45 11:47 WBC 15.9 H RBC 3.31 L Hgb 9.1 L Hct 28.4 L MCV MCH 27 L MCHC RDW 19.1 H Plt Count 858 H Lymph % (Auto) 4.9 L [place] % (Auto) 8.1 H Lymph # 0.8 L [place] # 1.3 H Baso # Seg Neutrophils % 85.5 H Seg Neuts % (Manual) Lymphocytes % (Manual) Monocytes % (Manual) Basophils % (Manual) Nucleated RBC % Seg Neutrophils # 13.6 H Seg Neutrophils # Man Lymphocytes # (Manual) Monocytes # (Manual) Eosinophils # (Manual) Basophils # (Manual) PT INR D-Dimer ABG pH ABG pO2 ABG HCO3 ABG O2 Saturation ABG Base Excess ABG Hemoglobin Oxyhemoglobin Sodium Potassium Chloride 111.6 H Carbon Dioxide BUN 50 H Creatinine 0.7 L Glucose 118 H POC Glucose 114 H Lactic Acid Calcium Magnesium Iron TIBC Ferritin AST ALT Lactate Dehydrogenase Troponin T C-Reactive Protein Total Protein Albumin Prealbumin Cholesterol LDL Cholesterol Direct HDL Cholesterol Urine WBC (Auto) Vancomycin Trough Coronavirus (PCR) Crossmatch 07/19/19 07/19/19 07/20/19 18:25 23:44 04:39 WBC RBC Hgb Hct MCV MCH MCHC RDW Plt Count Lymph % (Auto) [place] % (Auto) Lymph # [place] # Baso # Seg Neutrophils % Seg Neuts % (Manual) Lymphocytes % (Manual) Monocytes % (Manual) Basophils % (Manual) Nucleated RBC % Seg Neutrophils # Seg Neutrophils # Man Lymphocytes # (Manual) Monocytes # (Manual) Eosinophils # (Manual) Basophils # (Manual) PT INR D-Dimer ABG pH ABG pO2 ABG HCO3 ABG O2 Saturation ABG Base Excess ABG Hemoglobin Oxyhemoglobin Sodium Potassium Chloride 110.3 H Carbon Dioxide BUN 44 H Creatinine 0.6 L Glucose 120 H POC Glucose 115 H 117 H Lactic Acid Calcium Magnesium Iron TIBC Ferritin AST ALT Lactate Dehydrogenase Troponin T C-Reactive Protein Total Protein Albumin Prealbumin Cholesterol LDL Cholesterol Direct HDL Cholesterol Urine WBC (Auto) Vancomycin Trough Coronavirus (PCR) Crossmatch 07/20/19 07/21/19 07/21/19 05:30 11:59 17:40 WBC RBC Hgb Hct MCV MCH MCHC RDW Plt Count Lymph % (Auto) [place] % (Auto) Lymph # [place] # Baso # Seg Neutrophils % Seg Neuts % (Manual) Lymphocytes % (Manual) Monocytes % (Manual) Basophils % (Manual) Nucleated RBC % Seg Neutrophils # Seg Neutrophils # Man Lymphocytes # (Manual) Monocytes # (Manual) Eosinophils # (Manual) Basophils # (Manual) PT INR D-Dimer ABG pH ABG pO2 ABG HCO3 ABG O2 Saturation ABG Base Excess ABG Hemoglobin Oxyhemoglobin Sodium Potassium Chloride Carbon Dioxide BUN Creatinine Glucose POC Glucose 131 H 122 H 125 H Lactic Acid Calcium Magnesium Iron TIBC Ferritin AST ALT Lactate Dehydrogenase Troponin T C-Reactive Protein Total Protein Albumin Prealbumin Cholesterol LDL Cholesterol Direct HDL Cholesterol Urine WBC (Auto) Vancomycin Trough Coronavirus (PCR) Crossmatch 07/22/19 07/22/19 07/22/19 05:38 05:38 12:29 WBC 12.6 H RBC 3.19 L Hgb 8.9 L Hct 27.5 L MCV MCH MCHC RDW 18.9 H Plt Count 1101 H* Lymph % (Auto) [place] % (Auto) 12.2 H Lymph # [place] # 1.5 H Baso # Seg Neutrophils % 72.8 H Seg Neuts % (Manual) 76.0 H Lymphocytes % (Manual) 7.0 L Monocytes % (Manual) 14.0 H Basophils % (Manual) Nucleated RBC % 1.0 H Seg Neutrophils # 9.2 H Seg Neutrophils # Man 9.6 H Lymphocytes # (Manual) 0.9 L Monocytes # (Manual) 1.8 H Eosinophils # (Manual) Basophils # (Manual) PT INR D-Dimer ABG pH ABG pO2 ABG HCO3 ABG O2 Saturation ABG Base Excess ABG Hemoglobin Oxyhemoglobin Sodium Potassium 3.4 L Chloride Carbon Dioxide BUN 29 H Creatinine 0.5 L Glucose POC Glucose 116 H Lactic Acid Calcium Magnesium Iron TIBC Ferritin AST ALT Lactate Dehydrogenase Troponin T C-Reactive Protein Total Protein Albumin Prealbumin Cholesterol LDL Cholesterol Direct HDL Cholesterol Urine WBC (Auto) Vancomycin Trough Coronavirus (PCR) Crossmatch 07/22/19 07/22/19 07/23/19 18:20 23:51 04:52 WBC RBC Hgb Hct MCV MCH MCHC RDW Plt Count Lymph % (Auto) [place] % (Auto) Lymph # [place] # Baso # Seg Neutrophils % Seg Neuts % (Manual) Lymphocytes % (Manual) Monocytes % (Manual) Basophils % (Manual) Nucleated RBC % Seg Neutrophils # Seg Neutrophils # Man Lymphocytes # (Manual) Monocytes # (Manual) Eosinophils # (Manual) Basophils # (Manual) PT INR D-Dimer ABG pH ABG pO2 ABG HCO3 ABG O2 Saturation ABG Base Excess ABG Hemoglobin Oxyhemoglobin Sodium Potassium Chloride Carbon Dioxide BUN 24 H Creatinine 0.4 L Glucose POC Glucose 107 H 110 H Lactic Acid Calcium Magnesium Iron TIBC Ferritin AST ALT Lactate Dehydrogenase Troponin T C-Reactive Protein Total Protein Albumin Prealbumin Cholesterol LDL Cholesterol Direct HDL Cholesterol Urine WBC (Auto) Vancomycin Trough Coronavirus (PCR) Crossmatch 07/23/19 07/23/19 07/24/19 06:00 23:15 04:40 WBC RBC Hgb Hct MCV MCH MCHC RDW Plt Count Lymph % (Auto) [place] % (Auto) Lymph # [place] # Baso # Seg Neutrophils % Seg Neuts % (Manual) Lymphocytes % (Manual) Monocytes % (Manual) Basophils % (Manual) Nucleated RBC % Seg Neutrophils # Seg Neutrophils # Man Lymphocytes # (Manual) Monocytes # (Manual) Eosinophils # (Manual) Basophils # (Manual) PT INR D-Dimer ABG pH ABG pO2 73.5 L ABG HCO3 27.0 H 28.5 H ABG O2 Saturation 94.5 L ABG Base Excess ABG Hemoglobin 9.4 L 8.9 L Oxyhemoglobin 94.0 L 92.7 L Sodium Potassium Chloride Carbon Dioxide BUN Creatinine Glucose POC Glucose 117 H Lactic Acid Calcium Magnesium Iron TIBC Ferritin AST ALT Lactate Dehydrogenase Troponin T C-Reactive Protein Total Protein Albumin Prealbumin Cholesterol LDL Cholesterol Direct HDL Cholesterol Urine WBC (Auto) Vancomycin Trough Coronavirus (PCR) Crossmatch 07/24/19 07/24/19 07/25/19 05:25 12:06 00:16 WBC RBC Hgb Hct MCV MCH MCHC RDW Plt Count Lymph % (Auto) [place] % (Auto) Lymph # [place] # Baso # Seg Neutrophils % Seg Neuts % (Manual) Lymphocytes % (Manual) Monocytes % (Manual) Basophils % (Manual) Nucleated RBC % Seg Neutrophils # Seg Neutrophils # Man Lymphocytes # (Manual) Monocytes # (Manual) Eosinophils # (Manual) Basophils # (Manual) PT INR D-Dimer ABG pH ABG pO2 ABG HCO3 ABG O2 Saturation ABG Base Excess ABG Hemoglobin Oxyhemoglobin Sodium Potassium Chloride Carbon Dioxide BUN Creatinine Glucose POC Glucose 114 H 108 H 106 H Lactic Acid Calcium Magnesium Iron TIBC Ferritin AST ALT Lactate Dehydrogenase Troponin T C-Reactive Protein Total Protein Albumin Prealbumin Cholesterol LDL Cholesterol Direct HDL Cholesterol Urine WBC (Auto) Vancomycin Trough Coronavirus (PCR) Crossmatch 07/25/19 07/25/19 07/25/19 05:14 05:14 05:17 WBC 17.8 H RBC 3.32 L Hgb 9.2 L Hct 28.6 L MCV MCH MCHC RDW 19.9 H Plt Count 994 H Lymph % (Auto) [place] % (Auto) Lymph # [place] # Baso # Seg Neutrophils % Seg Neuts % (Manual) 82.0 H Lymphocytes % (Manual) 5.0 L Monocytes % (Manual) Basophils % (Manual) Nucleated RBC % Seg Neutrophils # Seg Neutrophils # Man 14.6 H Lymphocytes # (Manual) 0.9 L Monocytes # (Manual) 1.2 H Eosinophils # (Manual) Basophils # (Manual) PT INR D-Dimer ABG pH ABG pO2 ABG HCO3 ABG O2 Saturation ABG Base Excess ABG Hemoglobin Oxyhemoglobin Sodium Potassium Chloride Carbon Dioxide BUN Creatinine 0.4 L Glucose 110 H POC Glucose 107 H Lactic Acid Calcium Magnesium Iron TIBC Ferritin AST ALT Lactate Dehydrogenase Troponin T C-Reactive Protein Total Protein Albumin Prealbumin Cholesterol LDL Cholesterol Direct HDL Cholesterol Urine WBC (Auto) Vancomycin Trough Coronavirus (PCR) Crossmatch 07/25/19 07/25/19 07/26/19 11:55 23:49 06:01 WBC RBC Hgb Hct MCV MCH MCHC RDW Plt Count Lymph % (Auto) [place] % (Auto) Lymph # [place] # Baso # Seg Neutrophils % Seg Neuts % (Manual) Lymphocytes % (Manual) Monocytes % (Manual) Basophils % (Manual) Nucleated RBC % Seg Neutrophils # Seg Neutrophils # Man Lymphocytes # (Manual) Monocytes # (Manual) Eosinophils # (Manual) Basophils # (Manual) PT INR D-Dimer ABG pH ABG pO2 ABG HCO3 ABG O2 Saturation ABG Base Excess ABG Hemoglobin Oxyhemoglobin Sodium Potassium Chloride Carbon Dioxide BUN Creatinine Glucose POC Glucose 123 H 118 H 106 H Lactic Acid Calcium Magnesium Iron TIBC Ferritin AST ALT Lactate Dehydrogenase Troponin T C-Reactive Protein Total Protein Albumin Prealbumin Cholesterol LDL Cholesterol Direct HDL Cholesterol Urine WBC (Auto) Vancomycin Trough Coronavirus (PCR) Crossmatch 07/26/19 07/27/19 07/27/19 17:02 00:28 05:16 WBC RBC Hgb Hct MCV MCH MCHC RDW Plt Count Lymph % (Auto) [place] % (Auto) Lymph # [place] # Baso # Seg Neutrophils % Seg Neuts % (Manual) Lymphocytes % (Manual) Monocytes % (Manual) Basophils % (Manual) Nucleated RBC % Seg Neutrophils # Seg Neutrophils # Man Lymphocytes # (Manual) Monocytes # (Manual) Eosinophils # (Manual) Basophils # (Manual) PT INR D-Dimer ABG pH ABG pO2 63.4 L ABG HCO3 31.3 H ABG O2 Saturation 92.7 L ABG Base Excess 6.3 H ABG Hemoglobin 7.6 L Oxyhemoglobin 90.9 L Sodium Potassium Chloride Carbon Dioxide BUN Creatinine Glucose POC Glucose 116 H 158 H Lactic Acid Calcium Magnesium Iron TIBC Ferritin AST ALT Lactate Dehydrogenase Troponin T C-Reactive Protein Total Protein Albumin Prealbumin Cholesterol LDL Cholesterol Direct HDL Cholesterol Urine WBC (Auto) Vancomycin Trough Coronavirus (PCR) Crossmatch 07/28/19 07/28/19 07/28/19 10:13 10:13 23:54 WBC 18.5 H RBC 3.20 L Hgb 8.8 L Hct 26.8 L MCV MCH 27 L MCHC RDW 19.9 H Plt Count 730 H Lymph % (Auto) [place] % (Auto) Lymph # [place] # Baso # Seg Neutrophils % Seg Neuts % (Manual) Lymphocytes % (Manual) Monocytes % (Manual) Basophils % (Manual) Nucleated RBC % Seg Neutrophils # Seg Neutrophils # Man Lymphocytes # (Manual) Monocytes # (Manual) Eosinophils # (Manual) Basophils # (Manual) PT INR D-Dimer ABG pH ABG pO2 ABG HCO3 ABG O2 Saturation ABG Base Excess ABG Hemoglobin Oxyhemoglobin Sodium Potassium 3.2 L Chloride 97.5 L Carbon Dioxide 31 H BUN Creatinine 0.5 L Glucose POC Glucose 120 H Lactic Acid Calcium Magnesium Iron TIBC Ferritin AST ALT Lactate Dehydrogenase Troponin T C-Reactive Protein Total Protein Albumin Prealbumin Cholesterol LDL Cholesterol Direct HDL Cholesterol Urine WBC (Auto) Vancomycin Trough Coronavirus (PCR) Crossmatch 07/29/19 07/29/19 07/29/19 11:57 17:43 Unknown WBC RBC Hgb Hct MCV MCH MCHC RDW Plt Count Lymph % (Auto) [place] % (Auto) Lymph # [place] # Baso # Seg Neutrophils % Seg Neuts % (Manual) Lymphocytes % (Manual) Monocytes % (Manual) Basophils % (Manual) Nucleated RBC % Seg Neutrophils # Seg Neutrophils # Man Lymphocytes # (Manual) Monocytes # (Manual) Eosinophils # (Manual) Basophils # (Manual) PT INR D-Dimer ABG pH ABG pO2 ABG HCO3 ABG O2 Saturation ABG Base Excess ABG Hemoglobin Oxyhemoglobin Sodium Potassium Chloride Carbon Dioxide BUN Creatinine Glucose POC Glucose 112 H Lactic Acid Calcium Magnesium Iron TIBC Ferritin AST ALT Lactate Dehydrogenase Troponin T C-Reactive Protein Total Protein Albumin Prealbumin Cholesterol LDL Cholesterol Direct HDL Cholesterol Urine WBC (Auto) 63.0 H Vancomycin Trough Coronavirus (PCR) Positive A Crossmatch 07/30/19 07/30/19 07/30/19 00:20 04:35 04:35 WBC 24.3 H RBC 3.12 L Hgb 8.5 L Hct 26.3 L MCV MCH 27 L MCHC RDW 20.2 H Plt Count 550 H Lymph % (Auto) [place] % (Auto) Lymph # [place] # Baso # Seg Neutrophils % Seg Neuts % (Manual) Lymphocytes % (Manual) Monocytes % (Manual) Basophils % (Manual) Nucleated RBC % Seg Neutrophils # Seg Neutrophils # Man Lymphocytes # (Manual) Monocytes # (Manual) Eosinophils # (Manual) Basophils # (Manual) PT INR D-Dimer ABG pH ABG pO2 ABG HCO3 ABG O2 Saturation ABG Base Excess ABG Hemoglobin Oxyhemoglobin Sodium Potassium 3.0 L Chloride 96.3 L Carbon Dioxide 32 H BUN Creatinine 0.5 L Glucose POC Glucose 106 H Lactic Acid Calcium Magnesium Iron TIBC Ferritin AST ALT Lactate Dehydrogenase Troponin T C-Reactive Protein Total Protein Albumin Prealbumin Cholesterol LDL Cholesterol Direct HDL Cholesterol Urine WBC (Auto) Vancomycin Trough Coronavirus (PCR) Crossmatch 07/31/19 07/31/19 07/31/19 04:42 04:42 11:33 WBC 23.8 H RBC 3.10 L Hgb 8.4 L Hct 26.1 L MCV MCH 27 L MCHC RDW 19.6 H Plt Count 561 H Lymph % (Auto) [place] % (Auto) Lymph # [place] # Baso # Seg Neutrophils % Seg Neuts % (Manual) Lymphocytes % (Manual) Monocytes % (Manual) Basophils % (Manual) Nucleated RBC % Seg Neutrophils # Seg Neutrophils # Man Lymphocytes # (Manual) Monocytes # (Manual) Eosinophils # (Manual) Basophils # (Manual) PT INR D-Dimer ABG pH ABG pO2 ABG HCO3 ABG O2 Saturation ABG Base Excess ABG Hemoglobin Oxyhemoglobin Sodium 135 L Potassium Chloride 93.9 L Carbon Dioxide 32 H BUN Creatinine 0.4 L Glucose POC Glucose 116 H Lactic Acid Calcium Magnesium Iron TIBC Ferritin AST ALT Lactate Dehydrogenase Troponin T C-Reactive Protein Total Protein Albumin 1.6 L Prealbumin 0.037 L Cholesterol LDL Cholesterol Direct HDL Cholesterol Urine WBC (Auto) Vancomycin Trough Coronavirus (PCR) Crossmatch 07/31/19 08/01/19 08/01/19 23:33 04:57 04:57 WBC 26.7 H RBC 3.12 L Hgb 8.5 L Hct 26.3 L MCV MCH 27 L MCHC RDW 19.2 H Plt Count 602 H Lymph % (Auto) [place] % (Auto) Lymph # [place] # Baso # Seg Neutrophils % Seg Neuts % (Manual) 93.0 H Lymphocytes % (Manual) 2.0 L Monocytes % (Manual) Basophils % (Manual) Nucleated RBC % Seg Neutrophils # Seg Neutrophils # Man 24.8 H Lymphocytes # (Manual) 0.5 L Monocytes # (Manual) 1.1 H Eosinophils # (Manual) Basophils # (Manual) PT INR D-Dimer ABG pH ABG pO2 ABG HCO3 ABG O2 Saturation ABG Base Excess ABG Hemoglobin Oxyhemoglobin Sodium 132 L Potassium Chloride 93.8 L Carbon Dioxide 31 H BUN Creatinine 0.3 L Glucose POC Glucose 148 H Lactic Acid Calcium 8.1 L Magnesium Iron TIBC Ferritin AST ALT Lactate Dehydrogenase Troponin T C-Reactive Protein Total Protein Albumin Prealbumin Cholesterol LDL Cholesterol Direct HDL Cholesterol Urine WBC (Auto) Vancomycin Trough Coronavirus (PCR) Crossmatch 08/01/19 08/02/19 08/02/19 12:16 00:22 05:24 WBC RBC Hgb Hct MCV MCH MCHC RDW Plt Count Lymph % (Auto) [place] % (Auto) Lymph # [place] # Baso # Seg Neutrophils % Seg Neuts % (Manual) Lymphocytes % (Manual) Monocytes % (Manual) Basophils % (Manual) Nucleated RBC % Seg Neutrophils # Seg Neutrophils # Man Lymphocytes # (Manual) Monocytes # (Manual) Eosinophils # (Manual) Basophils # (Manual) PT INR D-Dimer ABG pH ABG pO2 ABG HCO3 ABG O2 Saturation ABG Base Excess ABG Hemoglobin Oxyhemoglobin Sodium Potassium Chloride Carbon Dioxide BUN Creatinine Glucose POC Glucose 120 H 119 H 113 H Lactic Acid Calcium Magnesium Iron TIBC Ferritin AST ALT Lactate Dehydrogenase Troponin T C-Reactive Protein Total Protein Albumin Prealbumin Cholesterol LDL Cholesterol Direct HDL Cholesterol Urine WBC (Auto) Vancomycin Trough Coronavirus (PCR) Crossmatch 08/03/19 08/03/19 08/03/19 05:20 12:01 23:48 WBC RBC Hgb Hct MCV MCH MCHC RDW Plt Count Lymph % (Auto) [place] % (Auto) Lymph # [place] # Baso # Seg Neutrophils % Seg Neuts % (Manual) Lymphocytes % (Manual) Monocytes % (Manual) Basophils % (Manual) Nucleated RBC % Seg Neutrophils # Seg Neutrophils # Man Lymphocytes # (Manual) Monocytes # (Manual) Eosinophils # (Manual) Basophils # (Manual) PT INR D-Dimer ABG pH ABG pO2 ABG HCO3 ABG O2 Saturation ABG Base Excess ABG Hemoglobin Oxyhemoglobin Sodium Potassium Chloride Carbon Dioxide BUN Creatinine Glucose POC Glucose 118 H 106 H 120 H Lactic Acid Calcium Magnesium Iron TIBC Ferritin AST ALT Lactate Dehydrogenase Troponin T C-Reactive Protein Total Protein Albumin Prealbumin Cholesterol LDL Cholesterol Direct HDL Cholesterol Urine WBC (Auto) Vancomycin Trough Coronavirus (PCR) Crossmatch 08/04/19 08/04/19 08/04/19 05:38 05:38 06:29 WBC 26.1 H RBC 2.77 L Hgb 7.5 L Hct 23.2 L MCV MCH 27 L MCHC RDW 19.2 H Plt Count 648 H Lymph % (Auto) [place] % (Auto) Lymph # [place] # Baso # Seg Neutrophils % Seg Neuts % (Manual) 90.5 H Lymphocytes % (Manual) 3.5 L Monocytes % (Manual) Basophils % (Manual) Nucleated RBC % Seg Neutrophils # Seg Neutrophils # Man 23.6 H Lymphocytes # (Manual) 0.9 L Monocytes # (Manual) 1.2 H Eosinophils # (Manual) Basophils # (Manual) PT INR D-Dimer ABG pH ABG pO2 ABG HCO3 ABG O2 Saturation ABG Base Excess ABG Hemoglobin Oxyhemoglobin Sodium 132 L Potassium 3.4 L D Chloride 92.7 L Carbon Dioxide 33 H BUN Creatinine 0.2 L Glucose POC Glucose 108 H Lactic Acid Calcium 8.1 L Magnesium Iron TIBC Ferritin AST ALT Lactate Dehydrogenase Troponin T C-Reactive Protein Total Protein Albumin Prealbumin Cholesterol LDL Cholesterol Direct HDL Cholesterol Urine WBC (Auto) Vancomycin Trough Coronavirus (PCR) Crossmatch 08/04/19 08/05/19 08/05/19 12:30 04:58 04:58 WBC 21.0 H RBC 2.63 L Hgb 7.2 L Hct 21.9 L MCV 83 L MCH 27 L MCHC RDW 18.9 H Plt Count 691 H Lymph % (Auto) [place] % (Auto) Lymph # [place] # Baso # Seg Neutrophils % Seg Neuts % (Manual) 86.0 H Lymphocytes % (Manual) 3.0 L Monocytes % (Manual) 10.0 H Basophils % (Manual) Nucleated RBC % Seg Neutrophils # Seg Neutrophils # Man 18.1 H Lymphocytes # (Manual) 0.6 L Monocytes # (Manual) 2.1 H Eosinophils # (Manual) Basophils # (Manual) PT INR D-Dimer ABG pH ABG pO2 ABG HCO3 ABG O2 Saturation ABG Base Excess ABG Hemoglobin Oxyhemoglobin Sodium 134 L Potassium 3.2 L Chloride 93.2 L Carbon Dioxide 34 H BUN 8 L Creatinine 0.3 L Glucose POC Glucose 138 H Lactic Acid Calcium 8.1 L Magnesium Iron TIBC Ferritin AST ALT Lactate Dehydrogenase Troponin T C-Reactive Protein Total Protein Albumin Prealbumin Cholesterol LDL Cholesterol Direct HDL Cholesterol Urine WBC (Auto) Vancomycin Trough Coronavirus (PCR) Crossmatch 08/05/19 08/05/19 08/05/19 11:53 17:57 23:58 WBC RBC Hgb Hct MCV MCH MCHC RDW Plt Count Lymph % (Auto) [place] % (Auto) Lymph # [place] # Baso # Seg Neutrophils % Seg Neuts % (Manual) Lymphocytes % (Manual) Monocytes % (Manual) Basophils % (Manual) Nucleated RBC % Seg Neutrophils # Seg Neutrophils # Man Lymphocytes # (Manual) Monocytes # (Manual) Eosinophils # (Manual) Basophils # (Manual) PT INR D-Dimer ABG pH ABG pO2 ABG HCO3 ABG O2 Saturation ABG Base Excess ABG Hemoglobin Oxyhemoglobin Sodium Potassium Chloride Carbon Dioxide BUN Creatinine Glucose POC Glucose 106 H 111 H 116 H Lactic Acid Calcium Magnesium Iron TIBC Ferritin AST ALT Lactate Dehydrogenase Troponin T C-Reactive Protein Total Protein Albumin Prealbumin Cholesterol LDL Cholesterol Direct HDL Cholesterol Urine WBC (Auto) Vancomycin Trough Coronavirus (PCR) Crossmatch 08/06/19 08/06/19 08/06/19 04:11 04:11 06:04 WBC 20.8 H RBC 2.80 L Hgb 7.6 L Hct 23.5 L MCV MCH 27 L MCHC RDW 19.0 H Plt Count 723 H Lymph % (Auto) [place] % (Auto) Lymph # [place] # Baso # Seg Neutrophils % Seg Neuts % (Manual) 88.0 H Lymphocytes % (Manual) 3.0 L Monocytes % (Manual) Basophils % (Manual) Nucleated RBC % Seg Neutrophils # Seg Neutrophils # Man 18.3 H Lymphocytes # (Manual) 0.6 L Monocytes # (Manual) Eosinophils # (Manual) Basophils # (Manual) 0.2 H PT INR D-Dimer ABG pH ABG pO2 ABG HCO3 ABG O2 Saturation ABG Base Excess ABG Hemoglobin Oxyhemoglobin Sodium Potassium 3.4 L Chloride 95.2 L Carbon Dioxide 32 H BUN Creatinine 0.3 L Glucose POC Glucose 108 H Lactic Acid Calcium 8.2 L Magnesium Iron TIBC Ferritin AST ALT Lactate Dehydrogenase Troponin T C-Reactive Protein Total Protein Albumin Prealbumin Cholesterol LDL Cholesterol Direct HDL Cholesterol Urine WBC (Auto) Vancomycin Trough Coronavirus (PCR) Crossmatch 08/06/19 08/06/19 08/07/19 12:23 17:13 00:21 WBC RBC Hgb Hct MCV MCH MCHC RDW Plt Count Lymph % (Auto) [place] % (Auto) Lymph # [place] # Baso # Seg Neutrophils % Seg Neuts % (Manual) Lymphocytes % (Manual) Monocytes % (Manual) Basophils % (Manual) Nucleated RBC % Seg Neutrophils # Seg Neutrophils # Man Lymphocytes # (Manual) Monocytes # (Manual) Eosinophils # (Manual) Basophils # (Manual) PT INR D-Dimer ABG pH ABG pO2 ABG HCO3 ABG O2 Saturation ABG Base Excess ABG Hemoglobin Oxyhemoglobin Sodium Potassium Chloride Carbon Dioxide BUN Creatinine Glucose POC Glucose 112 H 132 H 147 H Lactic Acid Calcium Magnesium Iron TIBC Ferritin AST ALT Lactate Dehydrogenase Troponin T C-Reactive Protein Total Protein Albumin Prealbumin Cholesterol LDL Cholesterol Direct HDL Cholesterol Urine WBC (Auto) Vancomycin Trough Coronavirus (PCR) Crossmatch 08/07/19 08/07/19 08/07/19 05:16 05:23 05:23 WBC 30.3 H RBC 2.69 L Hgb 7.1 L Hct 22.2 L MCV 83 L MCH 27 L MCHC RDW 19.1 H Plt Count 650 H Lymph % (Auto) [place] % (Auto) Lymph # [place] # Baso # Seg Neutrophils % Seg Neuts % (Manual) 88.0 H Lymphocytes % (Manual) 5.0 L Monocytes % (Manual) Basophils % (Manual) Nucleated RBC % Seg Neutrophils # Seg Neutrophils # Man 26.7 H Lymphocytes # (Manual) Monocytes # (Manual) 2.1 H Eosinophils # (Manual) Basophils # (Manual) PT INR D-Dimer ABG pH ABG pO2 ABG HCO3 ABG O2 Saturation ABG Base Excess ABG Hemoglobin Oxyhemoglobin Sodium 135 L Potassium 3.4 L Chloride 95.4 L Carbon Dioxide 32 H BUN Creatinine 0.4 L Glucose 120 H POC Glucose 120 H Lactic Acid Calcium 7.7 L Magnesium Iron TIBC Ferritin AST ALT Lactate Dehydrogenase Troponin T C-Reactive Protein Total Protein Albumin Prealbumin Cholesterol LDL Cholesterol Direct HDL Cholesterol Urine WBC (Auto) Vancomycin Trough Coronavirus (PCR) Crossmatch 08/07/19 08/07/19 08/07/19 10:24 10:24 11:10 WBC RBC Hgb Hct MCV MCH MCHC RDW Plt Count Lymph % (Auto) [place] % (Auto) Lymph # [place] # Baso # Seg Neutrophils % Seg Neuts % (Manual) Lymphocytes % (Manual) Monocytes % (Manual) Basophils % (Manual) Nucleated RBC % Seg Neutrophils # Seg Neutrophils # Man Lymphocytes # (Manual) Monocytes # (Manual) Eosinophils # (Manual) Basophils # (Manual) PT INR D-Dimer 1808.06 H ABG pH ABG pO2 73.3 L ABG HCO3 33.9 H ABG O2 Saturation ABG Base Excess 9.0 H ABG Hemoglobin 6.3 L Oxyhemoglobin 94.3 L Sodium Potassium Chloride Carbon Dioxide BUN Creatinine Glucose POC Glucose Lactic Acid Calcium Magnesium Iron TIBC Ferritin AST ALT Lactate Dehydrogenase Troponin T C-Reactive Protein 11.10 H Total Protein Albumin Prealbumin Cholesterol LDL Cholesterol Direct HDL Cholesterol Urine WBC (Auto) Vancomycin Trough Coronavirus (PCR) Crossmatch 08/07/19 08/08/19 08/08/19 12:01 04:41 04:41 WBC 22.1 H RBC 2.82 L Hgb 7.7 L Hct 23.6 L MCV MCH 27 L MCHC RDW 19.1 H Plt Count 722 H Lymph % (Auto) [place] % (Auto) Lymph # [place] # Baso # Seg Neutrophils % Seg Neuts % (Manual) 90.0 H Lymphocytes % (Manual) 3.0 L Monocytes % (Manual) Basophils % (Manual) Nucleated RBC % Seg Neutrophils # Seg Neutrophils # Man 19.9 H Lymphocytes # (Manual) 0.7 L Monocytes # (Manual) 1.3 H Eosinophils # (Manual) Basophils # (Manual) PT INR D-Dimer ABG pH ABG pO2 ABG HCO3 ABG O2 Saturation ABG Base Excess ABG Hemoglobin Oxyhemoglobin Sodium 136 L Potassium Chloride 97.8 L Carbon Dioxide BUN Creatinine 0.3 L Glucose 105 H POC Glucose 130 H Lactic Acid Calcium 7.8 L Magnesium Iron TIBC Ferritin AST ALT Lactate Dehydrogenase Troponin T C-Reactive Protein Total Protein Albumin Prealbumin Cholesterol LDL Cholesterol Direct HDL Cholesterol Urine WBC (Auto) Vancomycin Trough Coronavirus (PCR) Crossmatch 08/08/19 08/08/19 08/09/19 11:46 18:35 00:12 WBC RBC Hgb Hct MCV MCH MCHC RDW Plt Count Lymph % (Auto) [place] % (Auto) Lymph # [place] # Baso # Seg Neutrophils % Seg Neuts % (Manual) Lymphocytes % (Manual) Monocytes % (Manual) Basophils % (Manual) Nucleated RBC % Seg Neutrophils # Seg Neutrophils # Man Lymphocytes # (Manual) Monocytes # (Manual) Eosinophils # (Manual) Basophils # (Manual) PT INR D-Dimer ABG pH ABG pO2 ABG HCO3 ABG O2 Saturation ABG Base Excess ABG Hemoglobin Oxyhemoglobin Sodium Potassium Chloride Carbon Dioxide BUN Creatinine Glucose POC Glucose 117 H 117 H 117 H Lactic Acid Calcium Magnesium Iron TIBC Ferritin AST ALT Lactate Dehydrogenase Troponin T C-Reactive Protein Total Protein Albumin Prealbumin Cholesterol LDL Cholesterol Direct HDL Cholesterol Urine WBC (Auto) Vancomycin Trough Coronavirus (PCR) Crossmatch 08/09/19 08/09/19 08/09/19 05:33 12:22 17:48 WBC RBC Hgb Hct MCV MCH MCHC RDW Plt Count Lymph % (Auto) [place] % (Auto) Lymph # [place] # Baso # Seg Neutrophils % Seg Neuts % (Manual) Lymphocytes % (Manual) Monocytes % (Manual) Basophils % (Manual) Nucleated RBC % Seg Neutrophils # Seg Neutrophils # Man Lymphocytes # (Manual) Monocytes # (Manual) Eosinophils # (Manual) Basophils # (Manual) PT INR D-Dimer ABG pH ABG pO2 ABG HCO3 ABG O2 Saturation ABG Base Excess ABG Hemoglobin Oxyhemoglobin Sodium Potassium Chloride Carbon Dioxide BUN Creatinine Glucose POC Glucose 119 H 133 H 123 H Lactic Acid Calcium Magnesium Iron TIBC Ferritin AST ALT Lactate Dehydrogenase Troponin T C-Reactive Protein Total Protein Albumin Prealbumin Cholesterol LDL Cholesterol Direct HDL Cholesterol Urine WBC (Auto) Vancomycin Trough Coronavirus (PCR) Crossmatch 08/09/19 08/09/19 08/10/19 17:59 18:15 00:02 WBC RBC Hgb 6.7 L Hct 20.4 L MCV MCH MCHC RDW Plt Count Lymph % (Auto) [place] % (Auto) Lymph # [place] # Baso # Seg Neutrophils % Seg Neuts % (Manual) Lymphocytes % (Manual) Monocytes % (Manual) Basophils % (Manual) Nucleated RBC % Seg Neutrophils # Seg Neutrophils # Man Lymphocytes # (Manual) Monocytes # (Manual) Eosinophils # (Manual) Basophils # (Manual) PT INR D-Dimer ABG pH ABG pO2 ABG HCO3 ABG O2 Saturation ABG Base Excess ABG Hemoglobin Oxyhemoglobin Sodium Potassium Chloride Carbon Dioxide BUN Creatinine Glucose POC Glucose 124 H Lactic Acid Calcium Magnesium Iron TIBC Ferritin AST ALT Lactate Dehydrogenase Troponin T C-Reactive Protein Total Protein Albumin Prealbumin Cholesterol LDL Cholesterol Direct HDL Cholesterol Urine WBC (Auto) Vancomycin Trough Coronavirus (PCR) Crossmatch See Detail 08/10/19 08/10/19 08/10/19 05:47 08:00 08:00 WBC 16.9 H RBC 2.94 L Hgb 8.2 L Hct 24.9 L MCV MCH MCHC RDW 17.0 H Plt Count 661 H Lymph % (Auto) [place] % (Auto) Lymph # [place] # Baso # Seg Neutrophils % Seg Neuts % (Manual) Lymphocytes % (Manual) Monocytes % (Manual) Basophils % (Manual) Nucleated RBC % Seg Neutrophils # Seg Neutrophils # Man Lymphocytes # (Manual) Monocytes # (Manual) Eosinophils # (Manual) Basophils # (Manual) PT INR D-Dimer ABG pH ABG pO2 ABG HCO3 ABG O2 Saturation ABG Base Excess ABG Hemoglobin Oxyhemoglobin Sodium Potassium Chloride Carbon Dioxide BUN Creatinine 0.3 L Glucose 116 H POC Glucose 148 H Lactic Acid Calcium 7.7 L Magnesium Iron TIBC Ferritin AST ALT Lactate Dehydrogenase Troponin T C-Reactive Protein Total Protein Albumin Prealbumin Cholesterol LDL Cholesterol Direct HDL Cholesterol Urine WBC (Auto) Vancomycin Trough Coronavirus (PCR) Crossmatch 08/10/19 08/10/19 08/10/19 12:38 18:06 23:56 WBC RBC Hgb Hct MCV MCH MCHC RDW Plt Count Lymph % (Auto) [place] % (Auto) Lymph # [place] # Baso # Seg Neutrophils % Seg Neuts % (Manual) Lymphocytes % (Manual) Monocytes % (Manual) Basophils % (Manual) Nucleated RBC % Seg Neutrophils # Seg Neutrophils # Man Lymphocytes # (Manual) Monocytes # (Manual) Eosinophils # (Manual) Basophils # (Manual) PT INR D-Dimer ABG pH ABG pO2 ABG HCO3 ABG O2 Saturation ABG Base Excess ABG Hemoglobin Oxyhemoglobin Sodium Potassium Chloride Carbon Dioxide BUN Creatinine Glucose POC Glucose 113 H 126 H 115 H Lactic Acid Calcium Magnesium Iron TIBC Ferritin AST ALT Lactate Dehydrogenase Troponin T C-Reactive Protein Total Protein Albumin Prealbumin Cholesterol LDL Cholesterol Direct HDL Cholesterol Urine WBC (Auto) Vancomycin Trough Coronavirus (PCR) Crossmatch 08/10/19 08/11/19 08/12/19 Unknown 18:10 03:30 WBC 14.4 H RBC 2.58 L Hgb 7.4 L Hct 22.1 L MCV MCH MCHC RDW 17.4 H Plt Count 786 H Lymph % (Auto) [place] % (Auto) Lymph # [place] # Baso # Seg Neutrophils % Seg Neuts % (Manual) Lymphocytes % (Manual) Monocytes % (Manual) Basophils % (Manual) Nucleated RBC % Seg Neutrophils # Seg Neutrophils # Man Lymphocytes # (Manual) Monocytes # (Manual) Eosinophils # (Manual) Basophils # (Manual) PT INR D-Dimer ABG pH ABG pO2 ABG HCO3 ABG O2 Saturation ABG Base Excess ABG Hemoglobin Oxyhemoglobin Sodium Potassium Chloride Carbon Dioxide BUN Creatinine Glucose POC Glucose 106 H Lactic Acid Calcium Magnesium Iron TIBC Ferritin AST ALT Lactate Dehydrogenase Troponin T C-Reactive Protein Total Protein Albumin Prealbumin Cholesterol LDL Cholesterol Direct HDL Cholesterol Urine WBC (Auto) Vancomycin Trough Coronavirus (PCR) Positive A Crossmatch 08/12/19 08/12/19 08/13/19 03:30 12:08 05:25 WBC RBC Hgb Hct MCV MCH MCHC RDW Plt Count Lymph % (Auto) [place] % (Auto) Lymph # [place] # Baso # Seg Neutrophils % Seg Neuts % (Manual) Lymphocytes % (Manual) Monocytes % (Manual) Basophils % (Manual) Nucleated RBC % Seg Neutrophils # Seg Neutrophils # Man Lymphocytes # (Manual) Monocytes # (Manual) Eosinophils # (Manual) Basophils # (Manual) PT INR D-Dimer ABG pH ABG pO2 ABG HCO3 ABG O2 Saturation ABG Base Excess ABG Hemoglobin Oxyhemoglobin Sodium Potassium Chloride Carbon Dioxide BUN 7 L Creatinine 0.3 L Glucose 117 H POC Glucose 112 H 126 H Lactic Acid Calcium 7.8 L Magnesium Iron TIBC Ferritin AST ALT Lactate Dehydrogenase Troponin T C-Reactive Protein Total Protein Albumin Prealbumin Cholesterol LDL Cholesterol Direct HDL Cholesterol Urine WBC (Auto) Vancomycin Trough Coronavirus (PCR) Crossmatch 08/13/19 08/13/19 08/13/19 11:36 17:10 19:06 WBC RBC Hgb Hct MCV MCH MCHC RDW Plt Count Lymph % (Auto) [place] % (Auto) Lymph # [place] # Baso # Seg Neutrophils % Seg Neuts % (Manual) Lymphocytes % (Manual) Monocytes % (Manual) Basophils % (Manual) Nucleated RBC % Seg Neutrophils # Seg Neutrophils # Man Lymphocytes # (Manual) Monocytes # (Manual) Eosinophils # (Manual) Basophils # (Manual) PT INR D-Dimer ABG pH ABG pO2 105.0 H ABG HCO3 28.5 H ABG O2 Saturation ABG Base Excess 3.5 H ABG Hemoglobin 7.8 L Oxyhemoglobin Sodium Potassium Chloride Carbon Dioxide BUN Creatinine Glucose POC Glucose 143 H 107 H Lactic Acid Calcium Magnesium Iron TIBC Ferritin AST ALT Lactate Dehydrogenase Troponin T C-Reactive Protein Total Protein Albumin Prealbumin Cholesterol LDL Cholesterol Direct HDL Cholesterol Urine WBC (Auto) Vancomycin Trough Coronavirus (PCR) Crossmatch 08/13/19 08/14/19 08/14/19 23:23 05:00 05:00 WBC 14.3 H RBC 2.76 L Hgb 7.8 L Hct 23.9 L MCV MCH MCHC RDW 18.7 H Plt Count 896 H Lymph % (Auto) [place] % (Auto) Lymph # [place] # Baso # Seg Neutrophils % Seg Neuts % (Manual) Lymphocytes % (Manual) Monocytes % (Manual) Basophils % (Manual) Nucleated RBC % Seg Neutrophils # Seg Neutrophils # Man Lymphocytes # (Manual) Monocytes # (Manual) Eosinophils # (Manual) Basophils # (Manual) PT INR D-Dimer ABG pH ABG pO2 ABG HCO3 ABG O2 Saturation ABG Base Excess ABG Hemoglobin Oxyhemoglobin Sodium Potassium Chloride Carbon Dioxide BUN 6 L Creatinine 0.3 L Glucose POC Glucose 125 H Lactic Acid Calcium 8.2 L Magnesium Iron TIBC Ferritin AST ALT Lactate Dehydrogenase Troponin T C-Reactive Protein Total Protein Albumin Prealbumin Cholesterol LDL Cholesterol Direct HDL Cholesterol Urine WBC (Auto) Vancomycin Trough Coronavirus (PCR) Crossmatch 08/14/19 08/15/19 08/15/19 05:07 00:25 05:42 WBC RBC Hgb Hct MCV MCH MCHC RDW Plt Count Lymph % (Auto) [place] % (Auto) Lymph # [place] # Baso # Seg Neutrophils % Seg Neuts % (Manual) Lymphocytes % (Manual) Monocytes % (Manual) Basophils % (Manual) Nucleated RBC % Seg Neutrophils # Seg Neutrophils # Man Lymphocytes # (Manual) Monocytes # (Manual) Eosinophils # (Manual) Basophils # (Manual) PT INR D-Dimer ABG pH ABG pO2 ABG HCO3 ABG O2 Saturation ABG Base Excess ABG Hemoglobin Oxyhemoglobin Sodium Potassium Chloride Carbon Dioxide BUN Creatinine Glucose POC Glucose 128 H 117 H 115 H Lactic Acid Calcium Magnesium Iron TIBC Ferritin AST ALT Lactate Dehydrogenase Troponin T C-Reactive Protein Total Protein Albumin Prealbumin Cholesterol LDL Cholesterol Direct HDL Cholesterol Urine WBC (Auto) Vancomycin Trough Coronavirus (PCR) Crossmatch 08/15/19 08/15/19 08/15/19 06:10 06:10 06:10 WBC 11.6 H RBC 2.68 L Hgb 7.7 L Hct 23.3 L MCV MCH MCHC RDW 19.2 H Plt Count 885 H Lymph % (Auto) [place] % (Auto) Lymph # [place] # Baso # Seg Neutrophils % Seg Neuts % (Manual) Lymphocytes % (Manual) Monocytes % (Manual) Basophils % (Manual) Nucleated RBC % Seg Neutrophils # Seg Neutrophils # Man Lymphocytes # (Manual) Monocytes # (Manual) Eosinophils # (Manual) Basophils # (Manual) PT INR D-Dimer ABG pH ABG pO2 ABG HCO3 ABG O2 Saturation ABG Base Excess ABG Hemoglobin Oxyhemoglobin Sodium Potassium Chloride Carbon Dioxide BUN 6 L Creatinine 0.3 L Glucose 107 H POC Glucose Lactic Acid Calcium 8.2 L Magnesium 1.50 L Iron TIBC Ferritin AST ALT Lactate Dehydrogenase Troponin T C-Reactive Protein Total Protein Albumin Prealbumin Cholesterol LDL Cholesterol Direct HDL Cholesterol Urine WBC (Auto) Vancomycin Trough Coronavirus (PCR) Crossmatch 08/15/19 08/16/19 08/16/19 12:12 00:05 05:00 WBC 13.3 H RBC 2.87 L Hgb 8.1 L Hct 24.9 L MCV MCH MCHC RDW 18.7 H Plt Count 962 H Lymph % (Auto) [place] % (Auto) Lymph # [place] # Baso # Seg Neutrophils % Seg Neuts % (Manual) Lymphocytes % (Manual) Monocytes % (Manual) Basophils % (Manual) Nucleated RBC % Seg Neutrophils # Seg Neutrophils # Man Lymphocytes # (Manual) Monocytes # (Manual) Eosinophils # (Manual) Basophils # (Manual) PT INR D-Dimer ABG pH ABG pO2 ABG HCO3 ABG O2 Saturation ABG Base Excess ABG Hemoglobin Oxyhemoglobin Sodium Potassium Chloride Carbon Dioxide BUN Creatinine Glucose POC Glucose 112 H 111 H Lactic Acid Calcium Magnesium Iron TIBC Ferritin AST ALT Lactate Dehydrogenase Troponin T C-Reactive Protein Total Protein Albumin Prealbumin Cholesterol LDL Cholesterol Direct HDL Cholesterol Urine WBC (Auto) Vancomycin Trough Coronavirus (PCR) Crossmatch 08/16/19 08/16/19 08/16/19 05:00 05:00 23:35 WBC RBC Hgb Hct MCV MCH MCHC RDW Plt Count Lymph % (Auto) [place] % (Auto) Lymph # [place] # Baso # Seg Neutrophils % Seg Neuts % (Manual) Lymphocytes % (Manual) Monocytes % (Manual) Basophils % (Manual) Nucleated RBC % Seg Neutrophils # Seg Neutrophils # Man Lymphocytes # (Manual) Monocytes # (Manual) Eosinophils # (Manual) Basophils # (Manual) PT INR D-Dimer ABG pH ABG pO2 ABG HCO3 ABG O2 Saturation ABG Base Excess ABG Hemoglobin Oxyhemoglobin Sodium 135 L Potassium Chloride Carbon Dioxide BUN 6 L Creatinine 0.3 L Glucose POC Glucose 108 H Lactic Acid Calcium 8.2 L Magnesium Iron TIBC Ferritin AST ALT Lactate Dehydrogenase Troponin T C-Reactive Protein 2.70 H Total Protein Albumin 2.1 L Prealbumin Cholesterol LDL Cholesterol Direct HDL Cholesterol Urine WBC (Auto) Vancomycin Trough Coronavirus (PCR) Crossmatch 08/17/19 08/17/19 08/17/19 05:15 20:20 23:42 WBC RBC Hgb Hct MCV MCH MCHC RDW Plt Count Lymph % (Auto) [place] % (Auto) Lymph # [place] # Baso # Seg Neutrophils % Seg Neuts % (Manual) Lymphocytes % (Manual) Monocytes % (Manual) Basophils % (Manual) Nucleated RBC % Seg Neutrophils # Seg Neutrophils # Man Lymphocytes # (Manual) Monocytes # (Manual) Eosinophils # (Manual) Basophils # (Manual) PT INR D-Dimer ABG pH ABG pO2 ABG HCO3 27.8 H ABG O2 Saturation ABG Base Excess ABG Hemoglobin 11.4 L Oxyhemoglobin 94.6 L Sodium Potassium Chloride Carbon Dioxide BUN Creatinine Glucose POC Glucose 138 H 132 H Lactic Acid Calcium Magnesium Iron TIBC Ferritin AST ALT Lactate Dehydrogenase Troponin T C-Reactive Protein Total Protein Albumin Prealbumin Cholesterol LDL Cholesterol Direct HDL Cholesterol Urine WBC (Auto) Vancomycin Trough Coronavirus (PCR) Crossmatch 08/18/19 08/18/19 08/18/19 06:00 06:00 12:02 WBC 19.7 H RBC 3.30 L Hgb 9.3 L Hct 28.5 L MCV MCH MCHC RDW 18.9 H Plt Count 923 H Lymph % (Auto) [place] % (Auto) Lymph # [place] # Baso # Seg Neutrophils % Seg Neuts % (Manual) Lymphocytes % (Manual) Monocytes % (Manual) Basophils % (Manual) Nucleated RBC % Seg Neutrophils # Seg Neutrophils # Man Lymphocytes # (Manual) Monocytes # (Manual) Eosinophils # (Manual) Basophils # (Manual) PT INR D-Dimer ABG pH ABG pO2 ABG HCO3 ABG O2 Saturation ABG Base Excess ABG Hemoglobin Oxyhemoglobin Sodium 136 L Potassium Chloride Carbon Dioxide BUN Creatinine 0.4 L Glucose 71 L POC Glucose 123 H Lactic Acid Calcium Magnesium Iron TIBC Ferritin AST ALT Lactate Dehydrogenase Troponin T C-Reactive Protein Total Protein Albumin Prealbumin Cholesterol LDL Cholesterol Direct HDL Cholesterol Urine WBC (Auto) Vancomycin Trough Coronavirus (PCR) Crossmatch 08/18/19 08/18/19 08/19/19 18:23 23:16 04:57 WBC RBC Hgb Hct MCV MCH MCHC RDW Plt Count Lymph % (Auto) [place] % (Auto) Lymph # [place] # Baso # Seg Neutrophils % Seg Neuts % (Manual) Lymphocytes % (Manual) Monocytes % (Manual) Basophils % (Manual) Nucleated RBC % Seg Neutrophils # Seg Neutrophils # Man Lymphocytes # (Manual) Monocytes # (Manual) Eosinophils # (Manual) Basophils # (Manual) PT INR D-Dimer ABG pH ABG pO2 ABG HCO3 ABG O2 Saturation ABG Base Excess ABG Hemoglobin Oxyhemoglobin Sodium Potassium Chloride Carbon Dioxide BUN Creatinine Glucose POC Glucose 140 H 159 H 134 H Lactic Acid Calcium Magnesium Iron TIBC Ferritin AST ALT Lactate Dehydrogenase Troponin T C-Reactive Protein Total Protein Albumin Prealbumin Cholesterol LDL Cholesterol Direct HDL Cholesterol Urine WBC (Auto) Vancomycin Trough Coronavirus (PCR) Crossmatch 08/19/19 08/19/19 08/19/19 07:44 08:17 18:15 WBC 30.5 H RBC 2.87 L Hgb 7.9 L Hct 24.5 L MCV MCH MCHC RDW 18.8 H Plt Count 772 H Lymph % (Auto) [place] % (Auto) Lymph # [place] # Baso # Seg Neutrophils % Seg Neuts % (Manual) 89.0 H Lymphocytes % (Manual) 4.0 L Monocytes % (Manual) Basophils % (Manual) 2.0 H Nucleated RBC % Seg Neutrophils # Seg Neutrophils # Man 27.1 H Lymphocytes # (Manual) Monocytes # (Manual) 0.9 H Eosinophils # (Manual) 0.6 H Basophils # (Manual) 0.6 H PT INR D-Dimer ABG pH ABG pO2 ABG HCO3 ABG O2 Saturation ABG Base Excess ABG Hemoglobin Oxyhemoglobin Sodium 136 L Potassium Chloride Carbon Dioxide BUN Creatinine 0.3 L Glucose POC Glucose 106 H Lactic Acid Calcium 8.2 L Magnesium Iron TIBC Ferritin AST ALT Lactate Dehydrogenase Troponin T C-Reactive Protein Total Protein Albumin Prealbumin Cholesterol LDL Cholesterol Direct HDL Cholesterol Urine WBC (Auto) Vancomycin Trough Coronavirus (PCR) Crossmatch 08/19/19 08/20/19 08/20/19 23:46 06:20 18:34 WBC RBC Hgb Hct MCV MCH MCHC RDW Plt Count Lymph % (Auto) [place] % (Auto) Lymph # [place] # Baso # Seg Neutrophils % Seg Neuts % (Manual) Lymphocytes % (Manual) Monocytes % (Manual) Basophils % (Manual) Nucleated RBC % Seg Neutrophils # Seg Neutrophils # Man Lymphocytes # (Manual) Monocytes # (Manual) Eosinophils # (Manual) Basophils # (Manual) PT INR D-Dimer ABG pH ABG pO2 ABG HCO3 ABG O2 Saturation ABG Base Excess ABG Hemoglobin Oxyhemoglobin Sodium Potassium Chloride Carbon Dioxide BUN Creatinine Glucose POC Glucose 144 H 115 H 125 H Lactic Acid Calcium Magnesium Iron TIBC Ferritin AST ALT Lactate Dehydrogenase Troponin T C-Reactive Protein Total Protein Albumin Prealbumin Cholesterol LDL Cholesterol Direct HDL Cholesterol Urine WBC (Auto) Vancomycin Trough Coronavirus (PCR) Crossmatch 08/20/19 08/20/19 08/21/19 Unknown Unknown 11:56 WBC 18.7 H RBC 2.70 L Hgb 7.6 L Hct 23.1 L MCV MCH MCHC RDW 18.9 H Plt Count 690 H Lymph % (Auto) [place] % (Auto) Lymph # [place] # Baso # Seg Neutrophils % Seg Neuts % (Manual) Lymphocytes % (Manual) Monocytes % (Manual) Basophils % (Manual) Nucleated RBC % Seg Neutrophils # Seg Neutrophils # Man Lymphocytes # (Manual) Monocytes # (Manual) Eosinophils # (Manual) Basophils # (Manual) PT INR D-Dimer ABG pH ABG pO2 ABG HCO3 ABG O2 Saturation ABG Base Excess ABG Hemoglobin Oxyhemoglobin Sodium 134 L Potassium Chloride 97.9 L Carbon Dioxide BUN Creatinine 0.3 L Glucose 115 H POC Glucose 116 H Lactic Acid Calcium 8.2 L Magnesium Iron TIBC Ferritin AST ALT Lactate Dehydrogenase Troponin T C-Reactive Protein Total Protein Albumin Prealbumin Cholesterol LDL Cholesterol Direct HDL Cholesterol Urine WBC (Auto) Vancomycin Trough Coronavirus (PCR) Crossmatch 08/21/19 08/22/19 08/22/19 18:14 00:31 05:53 WBC RBC Hgb Hct MCV MCH MCHC RDW Plt Count Lymph % (Auto) [place] % (Auto) Lymph # [place] # Baso # Seg Neutrophils % Seg Neuts % (Manual) Lymphocytes % (Manual) Monocytes % (Manual) Basophils % (Manual) Nucleated RBC % Seg Neutrophils # Seg Neutrophils # Man Lymphocytes # (Manual) Monocytes # (Manual) Eosinophils # (Manual) Basophils # (Manual) PT INR D-Dimer ABG pH ABG pO2 ABG HCO3 ABG O2 Saturation ABG Base Excess ABG Hemoglobin Oxyhemoglobin Sodium Potassium Chloride Carbon Dioxide BUN Creatinine Glucose POC Glucose 113 H 106 H 109 H Lactic Acid Calcium Magnesium Iron TIBC Ferritin AST ALT Lactate Dehydrogenase Troponin T C-Reactive Protein Total Protein Albumin Prealbumin Cholesterol LDL Cholesterol Direct HDL Cholesterol Urine WBC (Auto) Vancomycin Trough Coronavirus (PCR) Crossmatch 08/22/19 08/23/19 08/23/19 18:35 00:18 06:00 WBC 12.3 H RBC 2.92 L Hgb 8.0 L Hct 24.6 L MCV MCH MCHC RDW 18.5 H Plt Count 661 H Lymph % (Auto) 11.7 L [place] % (Auto) 9.2 H Lymph # [place] # 1.1 H Baso # Seg Neutrophils % 75.6 H Seg Neuts % (Manual) Lymphocytes % (Manual) Monocytes % (Manual) Basophils % (Manual) Nucleated RBC % Seg Neutrophils # 9.3 H Seg Neutrophils # Man Lymphocytes # (Manual) Monocytes # (Manual) Eosinophils # (Manual) Basophils # (Manual) PT INR D-Dimer ABG pH ABG pO2 ABG HCO3 ABG O2 Saturation ABG Base Excess ABG Hemoglobin Oxyhemoglobin Sodium Potassium Chloride Carbon Dioxide BUN Creatinine Glucose POC Glucose 130 H 124 H Lactic Acid Calcium Magnesium Iron TIBC Ferritin AST ALT Lactate Dehydrogenase Troponin T C-Reactive Protein Total Protein Albumin Prealbumin Cholesterol LDL Cholesterol Direct HDL Cholesterol Urine WBC (Auto) Vancomycin Trough Coronavirus (PCR) Crossmatch 08/23/19 08/23/19 08/24/19 06:09 17:46 00:04 WBC RBC Hgb Hct MCV MCH MCHC RDW Plt Count Lymph % (Auto) [place] % (Auto) Lymph # [place] # Baso # Seg Neutrophils % Seg Neuts % (Manual) Lymphocytes % (Manual) Monocytes % (Manual) Basophils % (Manual) Nucleated RBC % Seg Neutrophils # Seg Neutrophils # Man Lymphocytes # (Manual) Monocytes # (Manual) Eosinophils # (Manual) Basophils # (Manual) PT INR D-Dimer ABG pH ABG pO2 ABG HCO3 ABG O2 Saturation ABG Base Excess ABG Hemoglobin Oxyhemoglobin Sodium Potassium Chloride Carbon Dioxide BUN Creatinine Glucose POC Glucose 117 H 125 H 113 H Lactic Acid Calcium Magnesium Iron TIBC Ferritin AST ALT Lactate Dehydrogenase Troponin T C-Reactive Protein Total Protein Albumin Prealbumin Cholesterol LDL Cholesterol Direct HDL Cholesterol Urine WBC (Auto) Vancomycin Trough Coronavirus (PCR) Crossmatch 08/24/19 08/24/19 08/24/19 05:34 12:28 17:32 WBC RBC Hgb Hct MCV MCH MCHC RDW Plt Count Lymph % (Auto) [place] % (Auto) Lymph # [place] # Baso # Seg Neutrophils % Seg Neuts % (Manual) Lymphocytes % (Manual) Monocytes % (Manual) Basophils % (Manual) Nucleated RBC % Seg Neutrophils # Seg Neutrophils # Man Lymphocytes # (Manual) Monocytes # (Manual) Eosinophils # (Manual) Basophils # (Manual) PT INR D-Dimer ABG pH ABG pO2 ABG HCO3 ABG O2 Saturation ABG Base Excess ABG Hemoglobin Oxyhemoglobin Sodium Potassium Chloride Carbon Dioxide BUN Creatinine Glucose POC Glucose 128 H 127 H 116 H Lactic Acid Calcium Magnesium Iron TIBC Ferritin AST ALT Lactate Dehydrogenase Troponin T C-Reactive Protein Total Protein Albumin Prealbumin Cholesterol LDL Cholesterol Direct HDL Cholesterol Urine WBC (Auto) Vancomycin Trough Coronavirus (PCR) Crossmatch 08/24/19 08/25/19 08/25/19 23:41 05:37 12:30 WBC RBC Hgb Hct MCV MCH MCHC RDW Plt Count Lymph % (Auto) [place] % (Auto) Lymph # [place] # Baso # Seg Neutrophils % Seg Neuts % (Manual) Lymphocytes % (Manual) Monocytes % (Manual) Basophils % (Manual) Nucleated RBC % Seg Neutrophils # Seg Neutrophils # Man Lymphocytes # (Manual) Monocytes # (Manual) Eosinophils # (Manual) Basophils # (Manual) PT INR D-Dimer ABG pH ABG pO2 ABG HCO3 ABG O2 Saturation ABG Base Excess ABG Hemoglobin Oxyhemoglobin Sodium Potassium Chloride Carbon Dioxide BUN Creatinine Glucose POC Glucose 107 H 129 H 110 H Lactic Acid Calcium Magnesium Iron TIBC Ferritin AST ALT Lactate Dehydrogenase Troponin T C-Reactive Protein Total Protein Albumin Prealbumin Cholesterol LDL Cholesterol Direct HDL Cholesterol Urine WBC (Auto) Vancomycin Trough Coronavirus (PCR) Crossmatch 08/25/19 08/25/19 08/26/19 17:49 23:55 05:35 WBC RBC Hgb Hct MCV MCH MCHC RDW Plt Count Lymph % (Auto) [place] % (Auto) Lymph # [place] # Baso # Seg Neutrophils % Seg Neuts % (Manual) Lymphocytes % (Manual) Monocytes % (Manual) Basophils % (Manual) Nucleated RBC % Seg Neutrophils # Seg Neutrophils # Man Lymphocytes # (Manual) Monocytes # (Manual) Eosinophils # (Manual) Basophils # (Manual) PT INR D-Dimer ABG pH ABG pO2 ABG HCO3 ABG O2 Saturation ABG Base Excess ABG Hemoglobin Oxyhemoglobin Sodium Potassium Chloride Carbon Dioxide BUN Creatinine Glucose POC Glucose 107 H 137 H 117 H Lactic Acid Calcium Magnesium Iron TIBC Ferritin AST ALT Lactate Dehydrogenase Troponin T C-Reactive Protein Total Protein Albumin Prealbumin Cholesterol LDL Cholesterol Direct HDL Cholesterol Urine WBC (Auto) Vancomycin Trough Coronavirus (PCR) Crossmatch 08/27/19 08/27/19 08/27/19 00:59 06:01 07:21 WBC 11.6 H RBC 3.15 L Hgb 8.3 L Hct 26.1 L MCV 83 L MCH 26 L MCHC RDW 18.6 H Plt Count 743 H Lymph % (Auto) 11.8 L [place] % (Auto) 8.8 H Lymph # [place] # 1.0 H Baso # Seg Neutrophils % 75.3 H Seg Neuts % (Manual) Lymphocytes % (Manual) Monocytes % (Manual) Basophils % (Manual) Nucleated RBC % Seg Neutrophils # 8.7 H Seg Neutrophils # Man Lymphocytes # (Manual) Monocytes # (Manual) Eosinophils # (Manual) Basophils # (Manual) PT INR D-Dimer ABG pH ABG pO2 ABG HCO3 ABG O2 Saturation ABG Base Excess ABG Hemoglobin Oxyhemoglobin Sodium Potassium Chloride Carbon Dioxide BUN Creatinine Glucose POC Glucose 126 H 134 H Lactic Acid Calcium Magnesium Iron TIBC Ferritin AST ALT Lactate Dehydrogenase Troponin T C-Reactive Protein Total Protein Albumin Prealbumin Cholesterol LDL Cholesterol Direct HDL Cholesterol Urine WBC (Auto) Vancomycin Trough Coronavirus (PCR) Crossmatch 08/27/19 08/27/19 08/28/19 07:21 18:05 00:37 WBC RBC Hgb Hct MCV MCH MCHC RDW Plt Count Lymph % (Auto) [place] % (Auto) Lymph # [place] # Baso # Seg Neutrophils % Seg Neuts % (Manual) Lymphocytes % (Manual) Monocytes % (Manual) Basophils % (Manual) Nucleated RBC % Seg Neutrophils # Seg Neutrophils # Man Lymphocytes # (Manual) Monocytes # (Manual) Eosinophils # (Manual) Basophils # (Manual) PT INR D-Dimer ABG pH ABG pO2 ABG HCO3 ABG O2 Saturation ABG Base Excess ABG Hemoglobin Oxyhemoglobin Sodium 132 L Potassium 5.1 H Chloride 97.6 L Carbon Dioxide BUN Creatinine 0.3 L Glucose 119 H POC Glucose 127 H 106 H Lactic Acid Calcium Magnesium Iron TIBC Ferritin AST ALT Lactate Dehydrogenase Troponin T C-Reactive Protein Total Protein Albumin Prealbumin Cholesterol LDL Cholesterol Direct HDL Cholesterol Urine WBC (Auto) Vancomycin Trough Coronavirus (PCR) Crossmatch 08/28/19 08/29/19 08/29/19 18:14 00:01 12:16 WBC RBC Hgb Hct MCV MCH MCHC RDW Plt Count Lymph % (Auto) [place] % (Auto) Lymph # [place] # Baso # Seg Neutrophils % Seg Neuts % (Manual) Lymphocytes % (Manual) Monocytes % (Manual) Basophils % (Manual) Nucleated RBC % Seg Neutrophils # Seg Neutrophils # Man Lymphocytes # (Manual) Monocytes # (Manual) Eosinophils # (Manual) Basophils # (Manual) PT INR D-Dimer ABG pH ABG pO2 ABG HCO3 ABG O2 Saturation ABG Base Excess ABG Hemoglobin Oxyhemoglobin Sodium Potassium Chloride Carbon Dioxide BUN Creatinine Glucose POC Glucose 115 H 146 H 107 H Lactic Acid Calcium Magnesium Iron TIBC Ferritin AST ALT Lactate Dehydrogenase Troponin T C-Reactive Protein Total Protein Albumin Prealbumin Cholesterol LDL Cholesterol Direct HDL Cholesterol Urine WBC (Auto) Vancomycin Trough Coronavirus (PCR) Crossmatch 08/30/19 08/30/19 08/30/19 05:10 05:10 05:25 WBC 12.3 H RBC 3.01 L Hgb 8.0 L Hct 25.1 L MCV MCH 27 L MCHC RDW 19.3 H Plt Count 709 H Lymph % (Auto) 8.9 L [place] % (Auto) Lymph # 1.1 L [place] # Baso # Seg Neutrophils % 82.7 H Seg Neuts % (Manual) Lymphocytes % (Manual) Monocytes % (Manual) Basophils % (Manual) Nucleated RBC % Seg Neutrophils # 10.1 H Seg Neutrophils # Man Lymphocytes # (Manual) Monocytes # (Manual) Eosinophils # (Manual) Basophils # (Manual) PT INR D-Dimer ABG pH ABG pO2 ABG HCO3 ABG O2 Saturation ABG Base Excess ABG Hemoglobin Oxyhemoglobin Sodium 133 L Potassium Chloride 97.8 L Carbon Dioxide BUN Creatinine 0.3 L Glucose POC Glucose 106 H Lactic Acid Calcium Magnesium 1.50 L Iron TIBC Ferritin AST ALT Lactate Dehydrogenase Troponin T C-Reactive Protein Total Protein Albumin 2.4 L Prealbumin Cholesterol LDL Cholesterol Direct HDL Cholesterol Urine WBC (Auto) Vancomycin Trough Coronavirus (PCR) Crossmatch 08/30/19 08/30/19 08/31/19 18:26 23:48 05:32 WBC RBC Hgb Hct MCV MCH MCHC RDW Plt Count Lymph % (Auto) [place] % (Auto) Lymph # [place] # Baso # Seg Neutrophils % Seg Neuts % (Manual) Lymphocytes % (Manual) Monocytes % (Manual) Basophils % (Manual) Nucleated RBC % Seg Neutrophils # Seg Neutrophils # Man Lymphocytes # (Manual) Monocytes # (Manual) Eosinophils # (Manual) Basophils # (Manual) PT INR D-Dimer ABG pH ABG pO2 ABG HCO3 ABG O2 Saturation ABG Base Excess ABG Hemoglobin Oxyhemoglobin Sodium Potassium Chloride Carbon Dioxide BUN Creatinine Glucose POC Glucose 139 H 113 H 115 H Lactic Acid Calcium Magnesium Iron TIBC Ferritin AST ALT Lactate Dehydrogenase Troponin T C-Reactive Protein Total Protein Albumin Prealbumin Cholesterol LDL Cholesterol Direct HDL Cholesterol Urine WBC (Auto) Vancomycin Trough Coronavirus (PCR) Crossmatch 09/01/19 09/01/19 09/01/19 04:33 11:43 14:50 WBC RBC Hgb Hct MCV MCH MCHC RDW Plt Count Lymph % (Auto) [place] % (Auto) Lymph # [place] # Baso # Seg Neutrophils % Seg Neuts % (Manual) Lymphocytes % (Manual) Monocytes % (Manual) Basophils % (Manual) Nucleated RBC % Seg Neutrophils # Seg Neutrophils # Man Lymphocytes # (Manual) Monocytes # (Manual) Eosinophils # (Manual) Basophils # (Manual) PT INR D-Dimer ABG pH 7.485 H ABG pO2 483.8 H ABG HCO3 ABG O2 Saturation 99.6 H ABG Base Excess ABG Hemoglobin 8.0 L Oxyhemoglobin Sodium Potassium Chloride Carbon Dioxide BUN Creatinine Glucose POC Glucose 127 H Lactic Acid Calcium Magnesium 1.30 L Iron TIBC Ferritin AST ALT Lactate Dehydrogenase Troponin T C-Reactive Protein Total Protein Albumin Prealbumin Cholesterol LDL Cholesterol Direct HDL Cholesterol Urine WBC (Auto) Vancomycin Trough Coronavirus (PCR) Crossmatch 09/01/19 09/01/19 09/01/19 14:50 17:00 17:28 WBC RBC Hgb Hct MCV MCH MCHC RDW Plt Count Lymph % (Auto) [place] % (Auto) Lymph # [place] # Baso # Seg Neutrophils % Seg Neuts % (Manual) Lymphocytes % (Manual) Monocytes % (Manual) Basophils % (Manual) Nucleated RBC % Seg Neutrophils # Seg Neutrophils # Man Lymphocytes # (Manual) Monocytes # (Manual) Eosinophils # (Manual) Basophils # (Manual) PT INR D-Dimer ABG pH ABG pO2 116.0 H ABG HCO3 ABG O2 Saturation ABG Base Excess ABG Hemoglobin 12.2 L Oxyhemoglobin Sodium 133 L Potassium Chloride Carbon Dioxide BUN Creatinine 0.3 L Glucose 117 H POC Glucose 135 H Lactic Acid Calcium Magnesium Iron TIBC Ferritin AST ALT Lactate Dehydrogenase Troponin T C-Reactive Protein Total Protein Albumin Prealbumin Cholesterol LDL Cholesterol Direct HDL Cholesterol Urine WBC (Auto) Vancomycin Trough Coronavirus (PCR) Crossmatch 09/01/19 09/01/19 09/02/19 23:13 23:35 05:37 WBC RBC Hgb Hct MCV MCH MCHC RDW Plt Count Lymph % (Auto) [place] % (Auto) Lymph # [place] # Baso # Seg Neutrophils % Seg Neuts % (Manual) Lymphocytes % (Manual) Monocytes % (Manual) Basophils % (Manual) Nucleated RBC % Seg Neutrophils # Seg Neutrophils # Man Lymphocytes # (Manual) Monocytes # (Manual) Eosinophils # (Manual) Basophils # (Manual) PT INR D-Dimer ABG pH ABG pO2 ABG HCO3 ABG O2 Saturation ABG Base Excess ABG Hemoglobin Oxyhemoglobin Sodium Potassium Chloride Carbon Dioxide BUN Creatinine Glucose POC Glucose 131 H 110 H 129 H Lactic Acid Calcium Magnesium Iron TIBC Ferritin AST ALT Lactate Dehydrogenase Troponin T C-Reactive Protein Total Protein Albumin Prealbumin Cholesterol LDL Cholesterol Direct HDL Cholesterol Urine WBC (Auto) Vancomycin Trough Coronavirus (PCR) Crossmatch 09/02/19 09/02/19 09/02/19 12:01 17:24 23:39 WBC RBC Hgb Hct MCV MCH MCHC RDW Plt Count Lymph % (Auto) [place] % (Auto) Lymph # [place] # Baso # Seg Neutrophils % Seg Neuts % (Manual) Lymphocytes % (Manual) Monocytes % (Manual) Basophils % (Manual) Nucleated RBC % Seg Neutrophils # Seg Neutrophils # Man Lymphocytes # (Manual) Monocytes # (Manual) Eosinophils # (Manual) Basophils # (Manual) PT INR D-Dimer ABG pH ABG pO2 ABG HCO3 ABG O2 Saturation ABG Base Excess ABG Hemoglobin Oxyhemoglobin Sodium Potassium Chloride Carbon Dioxide BUN Creatinine Glucose POC Glucose 129 H 118 H 133 H Lactic Acid Calcium Magnesium Iron TIBC Ferritin AST ALT Lactate Dehydrogenase Troponin T C-Reactive Protein Total Protein Albumin Prealbumin Cholesterol LDL Cholesterol Direct HDL Cholesterol Urine WBC (Auto) Vancomycin Trough Coronavirus (PCR) Crossmatch 09/03/19 05:24 WBC RBC Hgb Hct MCV MCH MCHC RDW Plt Count Lymph % (Auto) [place] % (Auto) Lymph # [place] # Baso # Seg Neutrophils % Seg Neuts % (Manual) Lymphocytes % (Manual) Monocytes % (Manual) Basophils % (Manual) Nucleated RBC % Seg Neutrophils # Seg Neutrophils # Man Lymphocytes # (Manual) Monocytes # (Manual) Eosinophils # (Manual) Basophils # (Manual) PT INR D-Dimer ABG pH ABG pO2 ABG HCO3 ABG O2 Saturation ABG Base Excess ABG Hemoglobin Oxyhemoglobin Sodium Potassium Chloride Carbon Dioxide BUN Creatinine Glucose POC Glucose 114 H Lactic Acid Calcium Magnesium Iron TIBC Ferritin AST ALT Lactate Dehydrogenase Troponin T C-Reactive Protein Total Protein Albumin Prealbumin Cholesterol LDL Cholesterol Direct HDL Cholesterol Urine WBC (Auto) Vancomycin Trough Coronavirus (PCR) Crossmatch Chest x-ray: image reviewed Allied health notes reviewed: RT
--- NOTE | 2019-09-03 13:51 | Progress Note ---
Assessment and Plan /Acute respiratory Failure with Hypoxia - Due to bilateral PNA with COVID 19 infection. -pulmonary critical care following -Continue scheduled labs, mechanical ventilation, supportive care as needed - s/p trach and PEG on 08/31/2019 /COVid positive b/l pneumonia with severe sepsis -Possible abscess, no need for drianage per ID/pULM -Received Plaquenil and cefepime, -Currently patient is on Levaquin per ID 08/20/2019; hernandez PCR negative 08/10/2019; hernandez PCR positive 07/29/2019; hernandez PCR positive 07/04/2019; hernandez PCR positive /Adynamic ileus; on abdominal x-ray, -consulted surgery and recommended to resume tube feeding -Trach and PEG scheduled for 08/31/2019 /Vomitings: Probably secondary to high residuals -IV Zofran as needed, lowered the rate for tube feeding -Discussed with patient's nurse Acute metabolic encephalopathy -Likely due to respiratory arrest and severe sepsis with underlying advanced dementia - Hold Hyoscamine. monitor Troponins. -CT head unremarkable Shock, likely septic: Lactic acidosis -Levophed as needed, continue IV fluid COPD with exacerbation -Likely due to COVID-19 pneumonia -Continue scheduled nebs Anemia, Microcytic -due to iron deficiency - monitor H&H, transfused one unit Pressure Ulcers - buttocks, right lateral foot area - present upon admission - wound care consulted Hyponatremia, continue IV fluid DM type 2 - Accuchecks with sliding scale insulin HTN Essential, now hypotensive -relatively low BP - on IVF. monitor Seizure D/o/CVA/immobility/BIpolar D/o/SCZ chronic medical conditions - continue meds Severe PCM, TF for now, dietary following patient is DNR- Called and verified information Guarded prognosis, patient is critically ill Awaiting trach and PEG, and LTAC placement 07/04- 08/19: please see 08/[address] arana 08/20-08/28: please see 08/[address] Leyva 08/29: Resumed care. Remains on full ventilatory support mental status still unchanged. Continue supportive care. Monitor off antibiotics per ID. Resumed TF, plan for trach and PEG tomorrow. 08/30: Plan for trach and PEG today, will continue to provide supportive care and follow clinically 08/31: On trach and PEG. tolerating TF. pending LTAC placement 09/01: pending LTAC placement 09/02: wean off vent as tolerated. pending LTAC placement The high probability of a clinically significant, sudden or life threatening deterioration of the [respiratory, CVS, [employer]] system(s) required my full and direct attention, intervention and personal management. The aggregate critical care time was [32] minutes. This time is in addition to time spent performing reported procedures but includes the following: [x] Data Review and interpretation [x] Patient assessment and monitoring of vital signs [x] Documentation [x] Medication orders and management Brief History: 69-year-old male with PMH of CVA with RHP, HTN, DM2, SCZ, Dementia, Alcohol use D/o, Seizure D/O, presents to the emergency department via EMS from home with progressive SOB and impending espiratory failure with an unresponsive episode. Apparently the patient was witnessed becoming unresponsive by family members. Reportedly, pt had just gotten a high dose of Hyoscamine When EMS got there, the patient was agonal breathing and had a faint pulse. No CPR was indicated per EMS. PT was intubated and received some IV fluid en route to the hospital. He was admitted for sepsis, b/l PNA, acute respiratory failure. Patient was tested positive for COVID19. Evaluated by ID , received antibiotics Plaquenil, and inflammatory markers were checked and followed. Patient continues to be hypotensive currently on Levophed, unable to wean- remains intubated on ventilat ory support, critically ill, DNR status however family wants full treatment. Surgery evaluated recommend trach and PEG. need LTAC for discharge Physical exam: General appearance: Present: no acute distress, cachectic, other (On vent) - EENT Eyes: Present: PERRL, EOM intact - Neck Neck: Present: supple, normal ROM, other (trach tube) - Respiratory Respiratory effort: normal Respiratory: bilateral: diminished, negative: rales, rhonchi - Cardiovascular Rhythm: regular Heart Sounds: Present: S1 & S2 - Extremities Extremities: no ischemia, No edema - Abdominal General gastrointestinal: soft, non-tender, distended, PEG on place - Integumentary Integumentary: Present: clear, warm - Psychiatric Psychiatric: other (Intubated on trach) - Neurologic Neurologic: other (Intubated on trach) Subjective Date of service: 09/03/19 Principal diagnosis: Bilateral pneumonia, severe sepsis with septic shock, encephalopathy Interval history: Patient seen and examined. Medical records and medication list reviewed. No acute event overnight noted by the RN. Patient is now negative for COVID-19. Patient remains intubated with trach on mechanical ventilation Discussed plan of care at bedside with patient's RN. Objective - Constitutional Vitals: Vital Signs - 12hr 09/03/19 09/03/19 09/03/19 02:00 03:00 04:00 Temperature 98.9 F Pulse Rate 81 80 93 H Pulse Rate [ 93 H From Monitor] Respiratory 17 15 19 Rate Blood Pressure 158/87 148/82 O2 Sat by Pulse 99 99 100 Oximetry O2 Sat by Pulse Oximetry [ Assessment] 09/03/19 09/03/19 09/03/19 04:01 04:11 05:00 Temperature Pulse Rate 111 H 90 100 H Pulse Rate [ From Monitor] Respiratory 20 16 Rate Blood Pressure 144/79 134/62 139/76 O2 Sat by Pulse 100 98 100 Oximetry O2 Sat by Pulse Oximetry [ Assessment] 09/03/19 09/03/19 09/03/19 06:00 07:00 08:00 Temperature 99.1 F Pulse Rate 81 85 96 H Pulse Rate [ 99 H From Monitor] Respiratory 16 15 22 Rate Blood Pressure 116/59 114/72 129/72 O2 Sat by Pulse 100 100 100 Oximetry O2 Sat by Pulse 100 Oximetry [ Assessment] 09/03/19 09/03/19 09/03/19 09:00 10:00 10:08 Temperature Pulse Rate 100 H 107 H 100 H Pulse Rate [ From Monitor] Respiratory 22 18 Rate Blood Pressure 130/73 126/74 130/73 O2 Sat by Pulse 100 100 Oximetry O2 Sat by Pulse Oximetry [ Assessment] 09/03/19 09/03/19 11:00 12:10 Temperature Pulse Rate 90 91 H Pulse Rate [ From Monitor] Respiratory 20 Rate Blood Pressure 120/68 111/57 O2 Sat by Pulse 100 Oximetry O2 Sat by Pulse Oximetry [ Assessment] - Labs CBC & Chem 7: 08/30/19 05:10 09/01/19 14:50 Labs: Abnormal lab results 09/02/19 09/02/19 09/02/19 Range/Units 12:01 17:24 23:39 POC Glucose 129 H 118 H 133 H (70-105) 09/03/19 Range/Units 05:24 POC Glucose 114 H (70-105) HEART Score - HEART Score Troponin: Troponin T 0.013 ng/mL (0.00-0.029) 07/04/19 07:05
--- NOTE | 2019-09-03 15:49 | Progress Note ---
Assessment and Plan Cultures: 07/03/2019 urine culture: No growth 07/03/2019 Tracheal aspirate: E.coli 07/29/2019 urine culture: neg 07/30/2019 blood culture: no growth tracheal asp + Pseudomonas 08/06/2019 blood culture: no growth 08/09/2019 Wound MDR Enterobacter 08/16/2019 blood culture: no growth to date 08/20/2019 COVID-19 PCR: negative A/P: 69-year-old male with CVA, hypertension, dementia, schizophrenia, alcohol use disorder was admitted to the emergency room after being brought in by EMS with progressive shortness of breath and unresponsiveness. He was noted to have agonal breathing and a faint pulse requiring CPR. It seems patient was on hospice recently, prior to admission. #Shock, likely septic: shock resolved, remains off pressors. still intermittent fever, leukocytosis worse again: bacterial pneumonia vs sacral decubitus infection. #Non-resolving pneumonia/Cavitary pneumonia: ? abscess. Sputum +Pseudomonas. CT shows RUL pneumonia with 2.4 cm cavity and LLL pneumonia with moderate left pleural effusion. No need for thoracentesis per Pulm. #Penile/scrotal and buttocks wounds: ?cellulitis #Sacral decubitus: worsening on last exam ? necrotic. Evaluated for surgery, no indications for intervention. 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 bleeding overnight s/p surgical management bedside, 08/09/2019 Wound MDR Enterobacter likely a colonizer (superficial wound cx) #UTI: per documentation initial carroll placed on 07/03, exchanged on 07/31. #Severe COVID-19 disease and pneumonia: Markers improving. Completed Plaquenil. Completed Ceftriaxone for treatment E.coli in tracheal aspirate. Repeat COVID finally negative on 08/20/2019. #Acute respiratory failure: remains on mechanical ventilation. #Multiple skin tears documented on admission #Anemia: from sacral wound bleeding Recs: Monitor off medication for now. Afebrile today, previously versus possibly reactive continue to monitor. Overall prognosis is extremely poor. Continue wound care MD [facility] M: [phone] O: [phone] F: [phone] Subjective Date of service: 09/03/19 Principal diagnosis: Bilateral pneumonia, severe sepsis with septic shock, encephalopathy Interval history: Patient had a one-time fever over the weekend that has since resolved. Objective - Exam Narrative Exam: Narrative Exam: Physical Exam (reviewed in chart due to PPE conservation) Constitutional: intubated, sedated, on the vent Head, Ears, Nose: normocephalic, atraumatic Eyes: limited due to PPE conservation strategy Neck: intubated Oral: intubated Cardiovascular: limited due to PPE conservation strategy Respiratory: limited due to PPE conservation strategy GI: limited due to PPE conservation strategy Musculoskeletal: limited due to PPE conservation strategy Skin: limited due to PPE conservation strategy. Decubitus + Hem/Lymphatic: limited due to PPE conservation strategy Psych: no agitation Neurological: sedated, intubated, on the vent, exam limited - Constitutional Vitals: Vital Signs Temp Pulse Resp BP Pulse Ox 98.1 F 90 17 89/46 100 09/03/19 12:00 09/03/19 15:00 09/03/19 15:00 09/03/19 15:00 09/03/19 15:00 Temperature -Last 24 Hours Temperature 98.1 F Temperature 99.1 F Temperature 98.9 F Temperature 99.9 F Temperature 100.0 F Temperature 101.5 F - Labs CBC & Chem 7: 08/30/19 05:10 09/01/19 14:50 Labs: Abnormal lab results 09/02/19 09/02/19 09/03/19 Range/Units 17:24 23:39 05:24 POC Glucose 118 H 133 H 114 H (70-105)
[2019-09-03] MEDS: ACETAMINOPHEN 650 MG RECT SUPP PR PRN (16:20)
[2019-09-03] MEDS: POLYETHYLENE GLYCOL 3350 17 GM POWDER PO SCH (21:19)
[2019-09-04] MEDS: INSULIN LISPRO 100 UNIT/ML SUB-Q SCH ×4 (00:17→18:37)
[2019-09-04] MEDS: METOCLOPRAMIDE 10 MG/2 ML INJ IV SCH (05:11)
[2019-09-04] MEDS: GLYCOPYRROLATE 1 MG TAB PO SCH ×3 (08:15→22:29)
--- NOTE | 2019-09-04 09:36 | Progress Note ---
Assessment and Plan S/p Cardiopulmonary arrest with ROSC Severe Sepsis with septic shock-resolved Acute hypoxemic respiratory failure on MVS s/p Trach COVID-19 positive, now Negative Bilateral pneumonia Oropharyngeal dysphagia s/p PEG Decubitus ulcers-unstageable Moderate protein calorie malnutriton Thrombocytosis Microcytic anemia s/p Trach- trach care, airway clearance with secretion management Start ATP tirals today per protocol, full support at night for now Trend temperature curve, continue to monitor off antibiotics Supportive transfusions to keep HgB >7g/dL Place peripheral IVs, discontinue RIJ CVC Continue all care as documented Discharge planning - continue wound care per WCT - sedation prn for target RASS 0 to -1 - continue to wean supplemental oxygen for target O2 sat's > 90% - Daily SAT's and SBT assessment as tolerated - VAP bundle addressed - continue lung protective strategies - continue bronchodilators with pulmonary hygiene per RT - wean per pulmonary driven protocols otherwise - accuchecks with glycemic control per SSI (While critically ill target blood glucose of 140-180 mg/dL; avoid hypoglycemia) - continue to avoid benzodiazepines, reduce the possibility of delirium - prn analgesia per CPOT score - Maintenance of sleep-wake cycle, avoid delirium - continue enteral nutritional support at goal rate as tolerated - VTE prophylaxis-Enoxaparin -Stress ulcer prophylaxis- Famotidine - continue mobility protocol, off loading and skin assessment for pressure ulcer prevention - Monitor hemodynamics closely -Wrigth catheter in this patient with unstageable sacral decubitus ulcer - continue other care per attending / other consultants - discharge planning ongoing concurrently .... Re-evaluate in am & prn CONDITION: CRITICAL PROGNOSIS: GUARDED CODE STATUS: DNAR Subjective Date of service: 09/04/19 Principal diagnosis: Bilateral pneumonia, severe sepsis with septic shock, encephalopathy Interval history: The patient is a 69-year-old male with CVA, hypertension, dementia, schizophrenia, alcohol use disorder was admitted to the emergency room after being brought in by EMS with progressive shortness of breath and unresponsiveness. He was noted to have agonal breathing and a faint pulse req uiring CPR. Patient was intubated and brought to the hospital. It seems, patient was on home hospice. Currently, remains critically ill, intubated, on mechanical ventilation. His COVID test resulted positive. Seen and examined at bedside; 24hour events reviewed; nursing and respiratory care staff consulted; no adverse overnight events reported to me; resting in bed.Tmax 101.5 On MVS , tolerating daily PSV trials at this time; s/p trach, s/p PEG Tolerating tube feeding Objective Vital Signs - 12hr 09/03/19 09/03/19 09/03/19 21:51 22:00 22:02 Temperature Pulse Rate 70 65 67 Pulse Rate [ From Monitor] Respiratory 17 13 15 Rate Blood Pressure 119/62 113/60 113/60 O2 Sat by Pulse 100 100 100 Oximetry O2 Sat by Pulse Oximetry [ Assessment] 09/03/19 09/03/19 09/03/19 23:00 23:35 23:39 Temperature 98.4 F Pulse Rate 65 62 Pulse Rate [ From Monitor] Respiratory 18 Rate Blood Pressure 113/65 96/54 O2 Sat by Pulse 100 100 Oximetry O2 Sat by Pulse Oximetry [ Assessment] 09/04/19 09/04/19 09/04/19 00:00 01:00 02:00 Temperature Pulse Rate 67 73 Pulse Rate [ 66 From Monitor] Respiratory 15 23 Rate Blood Pressure 112/64 119/59 100/57 O2 Sat by Pulse 100 100 100 Oximetry O2 Sat by Pulse Oximetry [ Assessment] 09/04/19 09/04/19 09/04/19 03:00 03:38 04:00 Temperature 98.6 F Pulse Rate 62 74 Pulse Rate [ 73 From Monitor] Respiratory 15 17 Rate Blood Pressure 108/49 138/75 O2 Sat by Pulse 99 100 Oximetry O2 Sat by Pulse Oximetry [ Assessment] 09/04/19 09/04/19 09/04/19 04:20 04:23 05:00 Temperature Pulse Rate 73 72 Pulse Rate [ From Monitor] Respiratory 16 Rate Blood Pressure 109/59 110/63 O2 Sat by Pulse 100 99 Oximetry O2 Sat by Pulse 100 Oximetry [ Assessment] 09/04/19 09/04/19 09/04/19 06:00 07:00 08:00 Temperature 99.7 F H Pulse Rate 76 76 81 Pulse Rate [ From Monitor] Respiratory 13 16 19 Rate Blood Pressure 126/66 131/71 124/73 O2 Sat by Pulse 99 99 100 Oximetry O2 Sat by Pulse Oximetry [ Assessment] 09/04/19 09/04/19 08:11 09:00 Temperature Pulse Rate 76 86 Pulse Rate [ From Monitor] Respiratory 18 14 Rate Blood Pressure 131/71 147/81 O2 Sat by Pulse 99 99 Oximetry O2 Sat by Pulse Oximetry [ Assessment] Constitutional: appears uncomfortable, other (eelderly and chronically ill looking AAM, normocep[krystina;ic with mildly increased respiratory effort at rest) Eyes: non-icteric ENT: oropharynx moist, other (s/p trach to MVS) Neck: supple, no lymphadenopathy, no JVD Effort: normal Ascultation: Bilateral: diminished breath sounds, rhonchi Percussion: Bilateral: not dull Cardiovascular: regular rate and rhythm Gastrointestinal: normoactive bowel sounds, soft, non-tender, non-distended, other (+ PEG tube) Integumentary: decubitus ulcer (sacral) Extremities: no cyanosis, no edema, pink and warm, pulses normal Neurologic: pupils equal and round, unable to assess Psychiatric: other (Unable to assess re: AMS) CBC and BMP: 08/30/19 05:10 09/01/19 14:50 ABG, PT/INR, D-dimer: ABG ABG pH 7.407 pH Units (7.350-7.450) 09/01/19 17:00 ABG pCO2 40.4 mm Hg 09/01/19 17:00 ABG pO2 116.0 mm Hg (80.0-90.0) H 09/01/19 17:00 ABG O2 Saturation 98.2 % (95.0-99.0) 09/01/19 17:00 PT/INR, D-dimer PT 16.0 Sec. (12.2-14.9) H 07/03/19 22:20 INR 1.26 (0.87-1.13) H 07/03/19 22:20 D-Dimer 1808.06 ng/mlDDU (0-234) H 08/07/19 10:24 Abnormal lab findings: Abnormal Labs 07/03/19 07/03/19 07/03/19 19:57 21:10 21:13 WBC RBC Hgb Hct MCV MCH MCHC RDW Plt Count Lymph % (Auto) Lyman % (Auto) Lymph # Lyman # Baso # Seg Neutrophils % Seg Neuts % (Manual) Lymphocytes % (Manual) Monocytes % (Manual) Basophils % (Manual) Nucleated RBC % Seg Neutrophils # Seg Neutrophils # Man Lymphocytes # (Manual) Monocytes # (Manual) Eosinophils # (Manual) Basophils # (Manual) PT INR D-Dimer ABG pH 7.238 L ABG pO2 210.8 H ABG HCO3 15.4 L ABG O2 Saturation 99.2 H ABG Base Excess -11.1 L ABG Hemoglobin 8.0 L Oxyhemoglobin Sodium 124 L Potassium Chloride 92.9 L Carbon Dioxide 10 L BUN 23 H Creatinine 0.5 L Glucose 118 H POC Glucose Lactic Acid Calcium 7.0 L Magnesium Iron TIBC Ferritin AST 70 H ALT 88 H Lactate Dehydrogenase Troponin T 0.032 H C-Reactive Protein Total Protein 5.0 L Albumin 1.8 L Prealbumin Cholesterol 47 L LDL Cholesterol Direct 25 L HDL Cholesterol 20 L Urine WBC (Auto) 12.0 H Vancomycin Trough Coronavirus (PCR) Crossmatch 07/03/19 07/03/19 07/03/19 22:20 22:20 22:20 WBC 30.5 H RBC 2.96 L Hgb 7.7 L Hct 23.9 L MCV 81 L MCH 26 L MCHC RDW 18.6 H Plt Count 459 H Lymph % (Auto) Lyman % (Auto) Lymph # Lyman # Baso # Seg Neutrophils % Seg Neuts % (Manual) 93.0 H Lymphocytes % (Manual) 0.5 L Monocytes % (Manual) Basophils % (Manual) Nucleated RBC % Seg Neutrophils # Seg Neutrophils # Man 28.4 H Lymphocytes # (Manual) 0.2 L Monocytes # (Manual) Eosinophils # (Manual) Basophils # (Manual) PT 16.0 H INR 1.26 H D-Dimer ABG pH ABG pO2 ABG HCO3 ABG O2 Saturation ABG Base Excess ABG Hemoglobin Oxyhemoglobin Sodium Potassium Chloride Carbon Dioxide BUN Creatinine Glucose POC Glucose Lactic Acid 6.90 H* Calcium Magnesium Iron TIBC Ferritin AST ALT Lactate Dehydrogenase Troponin T C-Reactive Protein Total Protein Albumin Prealbumin Cholesterol LDL Cholesterol Direct HDL Cholesterol Urine WBC (Auto) Vancomycin Trough Coronavirus (PCR) Crossmatch 07/03/19 07/04/19 07/04/19 23:58 05:15 07:05 WBC 17.1 H RBC 3.22 L Hgb 8.3 L Hct 25.4 L MCV 79 L MCH 26 L MCHC RDW 18.6 H Plt Count Lymph % (Auto) Lyman % (Auto) Lymph # Lyman # Baso # Seg Neutrophils % Seg Neuts % (Manual) 74.0 H Lymphocytes % (Manual) 0 L Monocytes % (Manual) Basophils % (Manual) Nucleated RBC % Seg Neutrophils # Seg Neutrophils # Man 12.7 H Lymphocytes # (Manual) 0.0 L Monocytes # (Manual) Eosinophils # (Manual) Basophils # (Manual) PT INR D-Dimer ABG pH 7.310 L ABG pO2 73.2 L ABG HCO3 17.8 L ABG O2 Saturation 93.8 L ABG Base Excess -7.7 L ABG Hemoglobin 9.6 L Oxyhemoglobin 92.3 L Sodium Potassium Chloride Carbon Dioxide BUN Creatinine Glucose POC Glucose Lactic Acid 7.10 H* Calcium Magnesium Iron TIBC Ferritin AST ALT Lactate Dehydrogenase Troponin T C-Reactive Protein Total Protein Albumin Prealbumin Cholesterol LDL Cholesterol Direct HDL Cholesterol Urine WBC (Auto) Vancomycin Trough Coronavirus (PCR) Crossmatch 07/04/19 07/04/19 07/04/19 07:05 07:05 07:05 WBC RBC Hgb Hct MCV MCH MCHC RDW Plt Count Lymph % (Auto) Lyman % (Auto) Lymph # Lyman # Baso # Seg Neutrophils % Seg Neuts % (Manual) Lymphocytes % (Manual) Monocytes % (Manual) Basophils % (Manual) Nucleated RBC % Seg Neutrophils # Seg Neutrophils # Man Lymphocytes # (Manual) Monocytes # (Manual) Eosinophils # (Manual) Basophils # (Manual) PT INR D-Dimer ABG pH ABG pO2 ABG HCO3 ABG O2 Saturation ABG Base Excess ABG Hemoglobin Oxyhemoglobin Sodium 120 L Potassium 5.1 H Chloride 90.0 L Carbon Dioxide 14 L BUN 26 H Creatinine 0.5 L Glucose POC Glucose Lactic Acid 3.30 H* Calcium 8.0 L Magnesium Iron 9 L TIBC 97 L Ferritin AST 73 H ALT 91 H Lactate Dehydrogenase Troponin T C-Reactive Protein Total Protein 5.5 L Albumin 2.0 L Prealbumin Cholesterol LDL Cholesterol Direct HDL Cholesterol Urine WBC (Auto) Vancomycin Trough Coronavirus (PCR) Crossmatch 07/04/19 07/04/19 07/04/19 09:39 09:39 09:39 WBC RBC Hgb Hct MCV MCH MCHC RDW Plt Count Lymph % (Auto) Lyman % (Auto) Lymph # Lyman # Baso # Seg Neutrophils % Seg Neuts % (Manual) Lymphocytes % (Manual) Monocytes % (Manual) Basophils % (Manual) Nucleated RBC % Seg Neutrophils # Seg Neutrophils # Man Lymphocytes # (Manual) Monocytes # (Manual) Eosinophils # (Manual) Basophils # (Manual) PT INR D-Dimer 1419.14 H ABG pH ABG pO2 ABG HCO3 ABG O2 Saturation ABG Base Excess ABG Hemoglobin Oxyhemoglobin Sodium Potassium Chloride Carbon Dioxide BUN Creatinine Glucose POC Glucose Lactic Acid Calcium Magnesium Iron TIBC Ferritin 1719.0 H AST ALT Lactate Dehydrogenase 234 H Troponin T C-Reactive Protein 15.50 H Total Protein Albumin Prealbumin Cholesterol LDL Cholesterol Direct HDL Cholesterol Urine WBC (Auto) Vancomycin Trough Coronavirus (PCR) Crossmatch 07/04/19 07/04/19 07/04/19 10:09 18:08 18:28 WBC RBC Hgb Hct MCV MCH MCHC RDW Plt Count Lymph % (Auto) Lyman % (Auto) Lymph # Lyman # Baso # Seg Neutrophils % Seg Neuts % (Manual) Lymphocytes % (Manual) Monocytes % (Manual) Basophils % (Manual) Nucleated RBC % Seg Neutrophils # Seg Neutrophils # Man Lymphocytes # (Manual) Monocytes # (Manual) Eosinophils # (Manual) Basophils # (Manual) PT INR D-Dimer ABG pH ABG pO2 ABG HCO3 ABG O2 Saturation ABG Base Excess ABG Hemoglobin Oxyhemoglobin Sodium 117 L* Potassium 5.6 H Chloride 90.3 L Carbon Dioxide 16 L BUN 28 H Creatinine 0.5 L Glucose 58 L POC Glucose 65 L Lactic Acid Calcium 8.2 L Magnesium Iron TIBC Ferritin AST ALT Lactate Dehydrogenase Troponin T C-Reactive Protein Total Protein Albumin Prealbumin Cholesterol LDL Cholesterol Direct HDL Cholesterol Urine WBC (Auto) Vancomycin Trough Coronavirus (PCR) Positive A Crossmatch 07/04/19 07/04/19 07/04/19 23:45 Unknown Unknown WBC RBC Hgb Hct MCV MCH MCHC RDW Plt Count Lymph % (Auto) Lyman % (Auto) Lymph # Lyman # Baso # Seg Neutrophils % Seg Neuts % (Manual) Lymphocytes % (Manual) Monocytes % (Manual) Basophils % (Manual) Nucleated RBC % Seg Neutrophils # Seg Neutrophils # Man Lymphocytes # (Manual) Monocytes # (Manual) Eosinophils # (Manual) Basophils # (Manual) PT INR D-Dimer 759.77 H ABG pH ABG pO2 ABG HCO3 ABG O2 Saturation ABG Base Excess ABG Hemoglobin Oxyhemoglobin Sodium 122 L Potassium Chloride 93.0 L Carbon Dioxide 19 L BUN 27 H Creatinine 0.5 L Glucose POC Glucose Lactic Acid Calcium 8.3 L Magnesium Iron TIBC Ferritin 1301.0 H AST ALT Lactate Dehydrogenase Troponin T C-Reactive Protein Total Protein Albumin Prealbumin Cholesterol LDL Cholesterol Direct HDL Cholesterol Urine WBC (Auto) Vancomycin Trough Coronavirus (PCR) Crossmatch 07/04/19 07/05/19 07/05/19 Unknown 03:20 04:00 WBC RBC Hgb Hct MCV MCH MCHC RDW Plt Count Lymph % (Auto) Lyman % (Auto) Lymph # Lyman # Baso # Seg Neutrophils % Seg Neuts % (Manual) Lymphocytes % (Manual) Monocytes % (Manual) Basophils % (Manual) Nucleated RBC % Seg Neutrophils # Seg Neutrophils # Man Lymphocytes # (Manual) Monocytes # (Manual) Eosinophils # (Manual) Basophils # (Manual) PT INR D-Dimer ABG pH ABG pO2 60.6 L ABG HCO3 ABG O2 Saturation 93.5 L ABG Base Excess -2.4 L ABG Hemoglobin 6.9 L Oxyhemoglobin 92.0 L Sodium 125 L Potassium Chloride 92.6 L Carbon Dioxide 19 L BUN 24 H Creatinine 0.6 L Glucose POC Glucose Lactic Acid Calcium 8.2 L Magnesium 1.40 L Iron TIBC Ferritin AST ALT Lactate Dehydrogenase 242 H Troponin T C-Reactive Protein 16.70 H Total Protein Albumin Prealbumin Cholesterol LDL Cholesterol Direct HDL Cholesterol Urine WBC (Auto) Vancomycin Trough Coronavirus (PCR) Crossmatch 07/05/19 07/05/19 07/05/19 10:11 16:15 17:54 WBC 46.4 H* RBC 2.77 L Hgb 7.2 L Hct 21.9 L MCV 79 L MCH 26 L MCHC RDW 19.0 H Plt Count Lymph % (Auto) Lyman % (Auto) Lymph # Lyman # Baso # Seg Neutrophils % Seg Neuts % (Manual) 82.0 H Lymphocytes % (Manual) 1.0 L Monocytes % (Manual) Basophils % (Manual) Nucleated RBC % Seg Neutrophils # Seg Neutrophils # Man 38.0 H Lymphocytes # (Manual) 0.5 L Monocytes # (Manual) Eosinophils # (Manual) Basophils # (Manual) PT INR D-Dimer ABG pH ABG pO2 ABG HCO3 ABG O2 Saturation ABG Base Excess ABG Hemoglobin Oxyhemoglobin Sodium Potassium Chloride Carbon Dioxide BUN Creatinine Glucose POC Glucose 69 L Lactic Acid Calcium Magnesium Iron TIBC Ferritin AST ALT Lactate Dehydrogenase Troponin T C-Reactive Protein Total Protein Albumin Prealbumin Cholesterol LDL Cholesterol Direct HDL Cholesterol Urine WBC (Auto) Vancomycin Trough 23.2 H Coronavirus (PCR) Crossmatch 07/05/19 07/06/19 07/06/19 19:58 00:27 00:27 WBC RBC Hgb Hct MCV MCH MCHC RDW Plt Count Lymph % (Auto) Lyman % (Auto) Lymph # Lyman # Baso # Seg Neutrophils % Seg Neuts % (Manual) Lymphocytes % (Manual) Monocytes % (Manual) Basophils % (Manual) Nucleated RBC % Seg Neutrophils # Seg Neutrophils # Man Lymphocytes # (Manual) Monocytes # (Manual) Eosinophils # (Manual) Basophils # (Manual) PT INR D-Dimer 1333.22 H ABG pH ABG pO2 ABG HCO3 ABG O2 Saturation ABG Base Excess ABG Hemoglobin Oxyhemoglobin Sodium 127 L Potassium Chloride Carbon Dioxide BUN Creatinine Glucose POC Glucose Lactic Acid Calcium Magnesium Iron TIBC Ferritin 977.1 H AST ALT Lactate Dehydrogenase Troponin T C-Reactive Protein Total Protein Albumin Prealbumin Cholesterol LDL Cholesterol Direct HDL Cholesterol Urine WBC (Auto) Vancomycin Trough Coronavirus (PCR) Crossmatch 07/06/19 07/06/19 07/06/19 00:27 02:00 02:56 WBC RBC Hgb Hct MCV MCH MCHC RDW Plt Count Lymph % (Auto) Lyman % (Auto) Lymph # Lyman # Baso # Seg Neutrophils % Seg Neuts % (Manual) Lymphocytes % (Manual) Monocytes % (Manual) Basophils % (Manual) Nucleated RBC % Seg Neutrophils # Seg Neutrophils # Man Lymphocytes # (Manual) Monocytes # (Manual) Eosinophils # (Manual) Basophils # (Manual) PT INR D-Dimer ABG pH ABG pO2 70.3 L ABG HCO3 ABG O2 Saturation 94.8 L ABG Base Excess ABG Hemoglobin 8.0 L Oxyhemoglobin 93.2 L Sodium Potassium Chloride Carbon Dioxide BUN Creatinine Glucose POC Glucose 117 H Lactic Acid Calcium Magnesium Iron TIBC Ferritin AST ALT Lactate Dehydrogenase 236 H Troponin T C-Reactive Protein 22.90 H Total Protein Albumin Prealbumin Cholesterol LDL Cholesterol Direct HDL Cholesterol Urine WBC (Auto) Vancomycin Trough Coronavirus (PCR) Crossmatch 07/06/19 07/06/19 07/06/19 03:49 03:49 07:40 WBC 38.8 H RBC 2.51 L Hgb 6.7 L Hct 19.9 L* MCV 79 L MCH 27 L MCHC RDW 19.2 H Plt Count Lymph % (Auto) Lyman % (Auto) Lymph # Lyman # Baso # Seg Neutrophils % Seg Neuts % (Manual) 90.5 H Lymphocytes % (Manual) 1.0 L Monocytes % (Manual) Basophils % (Manual) Nucleated RBC % Seg Neutrophils # Seg Neutrophils # Man 35.1 H Lymphocytes # (Manual) 0.4 L Monocytes # (Manual) Eosinophils # (Manual) Basophils # (Manual) PT INR D-Dimer ABG pH ABG pO2 ABG HCO3 ABG O2 Saturation ABG Base Excess ABG Hemoglobin Oxyhemoglobin Sodium 131 L Potassium Chloride 96.9 L Carbon Dioxide 18 L BUN 23 H Creatinine 0.5 L Glucose POC Glucose Lactic Acid Calcium 8.0 L Magnesium Iron TIBC Ferritin AST ALT Lactate Dehydrogenase Troponin T C-Reactive Protein Total Protein Albumin Prealbumin Cholesterol LDL Cholesterol Direct HDL Cholesterol Urine WBC (Auto) Vancomycin Trough Coronavirus (PCR) Crossmatch See Detail 07/06/19 07/06/19 07/06/19 12:38 14:39 20:00 WBC RBC Hgb Hct MCV MCH MCHC RDW Plt Count Lymph % (Auto) Lyman % (Auto) Lymph # Lyman # Baso # Seg Neutrophils % Seg Neuts % (Manual) Lymphocytes % (Manual) Monocytes % (Manual) Basophils % (Manual) Nucleated RBC % Seg Neutrophils # Seg Neutrophils # Man Lymphocytes # (Manual) Monocytes # (Manual) Eosinophils # (Manual) Basophils # (Manual) PT INR D-Dimer ABG pH ABG pO2 ABG HCO3 ABG O2 Saturation ABG Base Excess ABG Hemoglobin Oxyhemoglobin Sodium Potassium Chloride Carbon Dioxide BUN Creatinine Glucose POC Glucose 112 H 111 H 140 H Lactic Acid Calcium Magnesium Iron TIBC Ferritin AST ALT Lactate Dehydrogenase Troponin T C-Reactive Protein Total Protein Albumin Prealbumin Cholesterol LDL Cholesterol Direct HDL Cholesterol Urine WBC (Auto) Vancomycin Trough Coronavirus (PCR) Crossmatch 07/06/19 07/06/19 07/07/19 22:43 22:56 02:20 WBC RBC Hgb 7.9 L Hct 23.1 L MCV MCH MCHC RDW Plt Count Lymph % (Auto) Lyman % (Auto) Lymph # Lyman # Baso # Seg Neutrophils % Seg Neuts % (Manual) Lymphocytes % (Manual) Monocytes % (Manual) Basophils % (Manual) Nucleated RBC % Seg Neutrophils # Seg Neutrophils # Man Lymphocytes # (Manual) Monocytes # (Manual) Eosinophils # (Manual) Basophils # (Manual) PT INR D-Dimer ABG pH ABG pO2 ABG HCO3 ABG O2 Saturation ABG Base Excess ABG Hemoglobin Oxyhemoglobin Sodium Potassium Chloride Carbon Dioxide BUN Creatinine Glucose POC Glucose 122 H 149 H Lactic Acid Calcium Magnesium Iron TIBC Ferritin AST ALT Lactate Dehydrogenase Troponin T C-Reactive Protein Total Protein Albumin Prealbumin Cholesterol LDL Cholesterol Direct HDL Cholesterol Urine WBC (Auto) Vancomycin Trough Coronavirus (PCR) Crossmatch 07/07/19 07/07/19 07/07/19 04:35 05:27 05:34 WBC 23.1 H RBC 3.00 L Hgb 8.1 L Hct 24.2 L MCV 81 L MCH 27 L MCHC RDW 20.6 H Plt Count Lymph % (Auto) Lyman % (Auto) Lymph # Lyman # Baso # Seg Neutrophils % Seg Neuts % (Manual) 90.0 H Lymphocytes % (Manual) 2.0 L Monocytes % (Manual) Basophils % (Manual) Nucleated RBC % Seg Neutrophils # Seg Neutrophils # Man 20.8 H Lymphocytes # (Manual) 0.5 L Monocytes # (Manual) Eosinophils # (Manual) Basophils # (Manual) PT INR D-Dimer ABG pH ABG pO2 65.8 L ABG HCO3 ABG O2 Saturation 92.2 L ABG Base Excess ABG Hemoglobin 8.3 L Oxyhemoglobin 90.6 L Sodium Potassium Chloride Carbon Dioxide BUN Creatinine Glucose POC Glucose 132 H Lactic Acid Calcium Magnesium Iron TIBC Ferritin AST ALT Lactate Dehydrogenase Troponin T C-Reactive Protein Total Protein Albumin Prealbumin Cholesterol LDL Cholesterol Direct HDL Cholesterol Urine WBC (Auto) Vancomycin Trough Coronavirus (PCR) Crossmatch 07/07/19 07/07/19 07/07/19 05:34 11:50 15:58 WBC RBC Hgb 8.1 L Hct 24.2 L MCV MCH MCHC RDW Plt Count Lymph % (Auto) Lyman % (Auto) Lymph # Lyman # Baso # Seg Neutrophils % Seg Neuts % (Manual) Lymphocytes % (Manual) Monocytes % (Manual) Basophils % (Manual) Nucleated RBC % Seg Neutrophils # Seg Neutrophils # Man Lymphocytes # (Manual) Monocytes # (Manual) Eosinophils # (Manual) Basophils # (Manual) PT INR D-Dimer ABG pH ABG pO2 ABG HCO3 ABG O2 Saturation ABG Base Excess ABG Hemoglobin Oxyhemoglobin Sodium 135 L Potassium 3.3 L Chloride Carbon Dioxide 20 L BUN 27 H Creatinine 0.6 L Glucose 121 H POC Glucose 123 H Lactic Acid Calcium 8.0 L Magnesium Iron TIBC Ferritin AST ALT Lactate Dehydrogenase Troponin T C-Reactive Protein Total Protein Albumin Prealbumin Cholesterol LDL Cholesterol Direct HDL Cholesterol Urine WBC (Auto) Vancomycin Trough Coronavirus (PCR) Crossmatch 07/07/19 07/07/19 07/07/19 17:42 22:00 23:53 WBC RBC Hgb 8.0 L Hct 23.4 L MCV MCH MCHC RDW Plt Count Lymph % (Auto) Lyman % (Auto) Lymph # Lyman # Baso # Seg Neutrophils % Seg Neuts % (Manual) Lymphocytes % (Manual) Monocytes % (Manual) Basophils % (Manual) Nucleated RBC % Seg Neutrophils # Seg Neutrophils # Man Lymphocytes # (Manual) Monocytes # (Manual) Eosinophils # (Manual) Basophils # (Manual) PT INR D-Dimer ABG pH ABG pO2 ABG HCO3 ABG O2 Saturation ABG Base Excess ABG Hemoglobin Oxyhemoglobin Sodium Potassium Chloride Carbon Dioxide BUN Creatinine Glucose POC Glucose 107 H 117 H Lactic Acid Calcium Magnesium Iron TIBC Ferritin AST ALT Lactate Dehydrogenase Troponin T C-Reactive Protein Total Protein Albumin Prealbumin Cholesterol LDL Cholesterol Direct HDL Cholesterol Urine WBC (Auto) Vancomycin Trough Coronavirus (PCR) Crossmatch 07/08/19 07/08/19 07/08/19 00:45 00:45 00:45 WBC RBC Hgb Hct MCV MCH MCHC RDW Plt Count Lymph % (Auto) Lyman % (Auto) Lymph # Lyman # Baso # Seg Neutrophils % Seg Neuts % (Manual) Lymphocytes % (Manual) Monocytes % (Manual) Basophils % (Manual) Nucleated RBC % Seg Neutrophils # Seg Neutrophils # Man Lymphocytes # (Manual) Monocytes # (Manual) Eosinophils # (Manual) Basophils # (Manual) PT INR D-Dimer 1142.18 H ABG pH ABG pO2 ABG HCO3 ABG O2 Saturation ABG Base Excess ABG Hemoglobin Oxyhemoglobin Sodium Potassium Chloride Carbon Dioxide BUN Creatinine Glucose POC Glucose Lactic Acid Calcium Magnesium Iron TIBC Ferritin 839.0 H AST ALT Lactate Dehydrogenase 253 H Troponin T C-Reactive Protein 18.90 H Total Protein Albumin Prealbumin Cholesterol LDL Cholesterol Direct HDL Cholesterol Urine WBC (Auto) Vancomycin Trough Coronavirus (PCR) Crossmatch 07/08/19 07/08/19 07/08/19 04:30 05:11 12:02 WBC RBC Hgb Hct MCV MCH MCHC RDW Plt Count Lymph % (Auto) Lyman % (Auto) Lymph # Lyman # Baso # Seg Neutrophils % Seg Neuts % (Manual) Lymphocytes % (Manual) Monocytes % (Manual) Basophils % (Manual) Nucleated RBC % Seg Neutrophils # Seg Neutrophils # Man Lymphocytes # (Manual) Monocytes # (Manual) Eosinophils # (Manual) Basophils # (Manual) PT INR D-Dimer ABG pH ABG pO2 66.0 L ABG HCO3 ABG O2 Saturation 92.3 L ABG Base Excess ABG Hemoglobin 7.7 L Oxyhemoglobin 90.7 L Sodium Potassium Chloride Carbon Dioxide BUN Creatinine Glucose POC Glucose 108 H 153 H Lactic Acid Calcium Magnesium Iron TIBC Ferritin AST ALT Lactate Dehydrogenase Troponin T C-Reactive Protein Total Protein Albumin Prealbumin Cholesterol LDL Cholesterol Direct HDL Cholesterol Urine WBC (Auto) Vancomycin Trough Coronavirus (PCR) Crossmatch 07/08/19 07/08/19 07/08/19 16:15 18:22 23:35 WBC RBC Hgb Hct MCV MCH MCHC RDW Plt Count Lymph % (Auto) Lyman % (Auto) Lymph # Lyman # Baso # Seg Neutrophils % Seg Neuts % (Manual) Lymphocytes % (Manual) Monocytes % (Manual) Basophils % (Manual) Nucleated RBC % Seg Neutrophils # Seg Neutrophils # Man Lymphocytes # (Manual) Monocytes # (Manual) Eosinophils # (Manual) Basophils # (Manual) PT INR D-Dimer ABG pH ABG pO2 ABG HCO3 ABG O2 Saturation ABG Base Excess ABG Hemoglobin Oxyhemoglobin Sodium 134 L Potassium 3.3 L Chloride Carbon Dioxide 21 L BUN 27 H Creatinine 0.6 L Glucose 146 H POC Glucose 134 H 133 H Lactic Acid Calcium Magnesium Iron TIBC Ferritin AST ALT Lactate Dehydrogenase Troponin T C-Reactive Protein Total Protein Albumin Prealbumin Cholesterol LDL Cholesterol Direct HDL Cholesterol Urine WBC (Auto) Vancomycin Trough Coronavirus (PCR) Crossmatch 07/09/19 07/09/19 07/09/19 04:30 04:30 05:00 WBC 18.9 H RBC 2.77 L Hgb 7.4 L Hct 22.8 L MCV 82 L MCH 27 L MCHC RDW 20.9 H Plt Count 130 L Lymph % (Auto) Lyman % (Auto) Lymph # Lyman # Baso # Seg Neutrophils % Seg Neuts % (Manual) 84.0 H Lymphocytes % (Manual) 0 L Monocytes % (Manual) Basophils % (Manual) Nucleated RBC % Seg Neutrophils # Seg Neutrophils # Man 15.9 H Lymphocytes # (Manual) 0.0 L Monocytes # (Manual) Eosinophils # (Manual) Basophils # (Manual) PT INR D-Dimer ABG pH ABG pO2 ABG HCO3 ABG O2 Saturation ABG Base Excess ABG Hemoglobin Oxyhemoglobin Sodium Potassium 3.1 L Chloride Carbon Dioxide BUN 26 H Creatinine 0.5 L Glucose 125 H POC Glucose 155 H Lactic Acid Calcium Magnesium Iron TIBC Ferritin AST ALT Lactate Dehydrogenase Troponin T C-Reactive Protein Total Protein Albumin Prealbumin Cholesterol LDL Cholesterol Direct HDL Cholesterol Urine WBC (Auto) Vancomycin Trough Coronavirus (PCR) Crossmatch 07/09/19 07/09/19 07/09/19 05:55 12:22 17:50 WBC RBC Hgb Hct MCV MCH MCHC RDW Plt Count Lymph % (Auto) Lyman % (Auto) Lymph # Lyman # Baso # Seg Neutrophils % Seg Neuts % (Manual) Lymphocytes % (Manual) Monocytes % (Manual) Basophils % (Manual) Nucleated RBC % Seg Neutrophils # Seg Neutrophils # Man Lymphocytes # (Manual) Monocytes # (Manual) Eosinophils # (Manual) Basophils # (Manual) PT INR D-Dimer ABG pH ABG pO2 62.8 L ABG HCO3 ABG O2 Saturation ABG Base Excess ABG Hemoglobin 6.1 L Oxyhemoglobin 93.9 L Sodium Potassium Chloride Carbon Dioxide BUN Creatinine Glucose POC Glucose 115 H 133 H Lactic Acid Calcium Magnesium Iron TIBC Ferritin AST ALT Lactate Dehydrogenase Troponin T C-Reactive Protein Total Protein Albumin Prealbumin Cholesterol LDL Cholesterol Direct HDL Cholesterol Urine WBC (Auto) Vancomycin Trough Coronavirus (PCR) Crossmatch 07/10/19 07/10/19 07/10/19 00:38 04:00 04:00 WBC RBC Hgb Hct MCV MCH MCHC RDW Plt Count Lymph % (Auto) Lyman % (Auto) Lymph # Lyman # Baso # Seg Neutrophils % Seg Neuts % (Manual) Lymphocytes % (Manual) Monocytes % (Manual) Basophils % (Manual) Nucleated RBC % Seg Neutrophils # Seg Neutrophils # Man Lymphocytes # (Manual) Monocytes # (Manual) Eosinophils # (Manual) Basophils # (Manual) PT INR D-Dimer ABG pH ABG pO2 ABG HCO3 ABG O2 Saturation ABG Base Excess ABG Hemoglobin Oxyhemoglobin Sodium Potassium Chloride 107.9 H Carbon Dioxide BUN 26 H Creatinine 0.4 L Glucose 137 H POC Glucose 122 H Lactic Acid Calcium Magnesium 1.50 L Iron TIBC Ferritin AST ALT Lactate Dehydrogenase 277 H Troponin T C-Reactive Protein 15.10 H Total Protein Albumin Prealbumin Cholesterol LDL Cholesterol Direct HDL Cholesterol Urine WBC (Auto) Vancomycin Trough Coronavirus (PCR) Crossmatch 07/10/19 07/10/19 07/10/19 04:07 05:21 17:25 WBC RBC Hgb Hct MCV MCH MCHC RDW Plt Count Lymph % (Auto) Lyman % (Auto) Lymph # Lyman # Baso # Seg Neutrophils % Seg Neuts % (Manual) Lymphocytes % (Manual) Monocytes % (Manual) Basophils % (Manual) Nucleated RBC % Seg Neutrophils # Seg Neutrophils # Man Lymphocytes # (Manual) Monocytes # (Manual) Eosinophils # (Manual) Basophils # (Manual) PT INR D-Dimer ABG pH ABG pO2 65.6 L ABG HCO3 26.3 H ABG O2 Saturation ABG Base Excess ABG Hemoglobin 6.7 L Oxyhemoglobin Sodium Potassium Chloride Carbon Dioxide BUN Creatinine Glucose POC Glucose 144 H 113 H Lactic Acid Calcium Magnesium Iron TIBC Ferritin AST ALT Lactate Dehydrogenase Troponin T C-Reactive Protein Total Protein Albumin Prealbumin Cholesterol LDL Cholesterol Direct HDL Cholesterol Urine WBC (Auto) Vancomycin Trough Coronavirus (PCR) Crossmatch 07/11/19 07/11/19 07/11/19 00:07 05:14 05:25 WBC RBC Hgb Hct MCV MCH MCHC RDW Plt Count Lymph % (Auto) Lyman % (Auto) Lymph # Lyman # Baso # Seg Neutrophils % Seg Neuts % (Manual) Lymphocytes % (Manual) Monocytes % (Manual) Basophils % (Manual) Nucleated RBC % Seg Neutrophils # Seg Neutrophils # Man Lymphocytes # (Manual) Monocytes # (Manual) Eosinophils # (Manual) Basophils # (Manual) PT INR D-Dimer ABG pH ABG pO2 ABG HCO3 ABG O2 Saturation ABG Base Excess ABG Hemoglobin 5.8 L Oxyhemoglobin Sodium Potassium Chloride 108.0 H Carbon Dioxide BUN 26 H Creatinine 0.4 L Glucose 110 H POC Glucose 121 H Lactic Acid Calcium Magnesium Iron TIBC Ferritin AST ALT Lactate Dehydrogenase Troponin T C-Reactive Protein Total Protein Albumin Prealbumin Cholesterol LDL Cholesterol Direct HDL Cholesterol Urine WBC (Auto) Vancomycin Trough Coronavirus (PCR) Crossmatch 07/11/19 07/11/19 07/11/19 12:27 18:00 23:42 WBC RBC Hgb Hct MCV MCH MCHC RDW Plt Count Lymph % (Auto) Lyman % (Auto) Lymph # Lyman # Baso # Seg Neutrophils % Seg Neuts % (Manual) Lymphocytes % (Manual) Monocytes % (Manual) Basophils % (Manual) Nucleated RBC % Seg Neutrophils # Seg Neutrophils # Man Lymphocytes # (Manual) Monocytes # (Manual) Eosinophils # (Manual) Basophils # (Manual) PT INR D-Dimer ABG pH ABG pO2 ABG HCO3 ABG O2 Saturation ABG Base Excess ABG Hemoglobin Oxyhemoglobin Sodium Potassium Chloride Carbon Dioxide BUN Creatinine Glucose POC Glucose 158 H 141 H 142 H Lactic Acid Calcium Magnesium Iron TIBC Ferritin AST ALT Lactate Dehydrogenase Troponin T C-Reactive Protein Total Protein Albumin Prealbumin Cholesterol LDL Cholesterol Direct HDL Cholesterol Urine WBC (Auto) Vancomycin Trough Coronavirus (PCR) Crossmatch 07/12/19 07/12/19 07/12/19 04:46 04:46 05:23 WBC 23.6 H RBC 2.51 L Hgb 6.7 L Hct 20.8 L MCV 83 L MCH 27 L MCHC RDW 20.3 H Plt Count Lymph % (Auto) Lyman % (Auto) Lymph # Lyman # Baso # Seg Neutrophils % Seg Neuts % (Manual) 94.0 H Lymphocytes % (Manual) 4.0 L Monocytes % (Manual) Basophils % (Manual) Nucleated RBC % Seg Neutrophils # Seg Neutrophils # Man 22.2 H Lymphocytes # (Manual) 0.9 L Monocytes # (Manual) Eosinophils # (Manual) Basophils # (Manual) PT INR D-Dimer ABG pH ABG pO2 ABG HCO3 ABG O2 Saturation ABG Base Excess ABG Hemoglobin Oxyhemoglobin Sodium Potassium Chloride 107.1 H Carbon Dioxide BUN 25 H Creatinine 0.4 L Glucose 122 H POC Glucose 118 H Lactic Acid Calcium Magnesium Iron TIBC Ferritin AST ALT Lactate Dehydrogenase Troponin T C-Reactive Protein Total Protein Albumin Prealbumin Cholesterol LDL Cholesterol Direct HDL Cholesterol Urine WBC (Auto) Vancomycin Trough Coronavirus (PCR) Crossmatch 07/12/19 07/12/19 07/12/19 08:49 11:36 18:15 WBC RBC Hgb Hct MCV MCH MCHC RDW Plt Count Lymph % (Auto) Lyman % (Auto) Lymph # Lyman # Baso # Seg Neutrophils % Seg Neuts % (Manual) Lymphocytes % (Manual) Monocytes % (Manual) Basophils % (Manual) Nucleated RBC % Seg Neutrophils # Seg Neutrophils # Man Lymphocytes # (Manual) Monocytes # (Manual) Eosinophils # (Manual) Basophils # (Manual) PT INR D-Dimer ABG pH ABG pO2 ABG HCO3 ABG O2 Saturation ABG Base Excess ABG Hemoglobin Oxyhemoglobin Sodium Potassium Chloride Carbon Dioxide BUN Creatinine Glucose POC Glucose 124 H 110 H Lactic Acid Calcium Magnesium Iron TIBC Ferritin AST ALT Lactate Dehydrogenase Troponin T C-Reactive Protein Total Protein Albumin Prealbumin Cholesterol LDL Cholesterol Direct HDL Cholesterol Urine WBC (Auto) Vancomycin Trough Coronavirus (PCR) Crossmatch See Detail 07/12/19 07/13/19 07/13/19 23:16 05:26 06:50 WBC 23.9 H RBC 2.58 L Hgb 6.9 L Hct 21.5 L MCV 83 L MCH 27 L MCHC RDW 19.0 H Plt Count Lymph % (Auto) Lyman % (Auto) Lymph # Lyman # Baso # Seg Neutrophils % Seg Neuts % (Manual) 96.0 H Lymphocytes % (Manual) 3.0 L Monocytes % (Manual) Basophils % (Manual) Nucleated RBC % Seg Neutrophils # Seg Neutrophils # Man 22.9 H Lymphocytes # (Manual) 0.7 L Monocytes # (Manual) Eosinophils # (Manual) Basophils # (Manual) PT INR D-Dimer ABG pH ABG pO2 ABG HCO3 ABG O2 Saturation ABG Base Excess ABG Hemoglobin Oxyhemoglobin Sodium Potassium Chloride Carbon Dioxide BUN Creatinine Glucose POC Glucose 108 H 126 H Lactic Acid Calcium Magnesium Iron TIBC Ferritin AST ALT Lactate Dehydrogenase Troponin T C-Reactive Protein Total Protein Albumin Prealbumin Cholesterol LDL Cholesterol Direct HDL Cholesterol Urine WBC (Auto) Vancomycin Trough Coronavirus (PCR) Crossmatch 07/13/19 07/13/19 07/13/19 06:50 12:38 18:05 WBC RBC Hgb Hct MCV MCH MCHC RDW Plt Count Lymph % (Auto) Lyman % (Auto) Lymph # Lyman # Baso # Seg Neutrophils % Seg Neuts % (Manual) Lymphocytes % (Manual) Monocytes % (Manual) Basophils % (Manual) Nucleated RBC % Seg Neutrophils # Seg Neutrophils # Man Lymphocytes # (Manual) Monocytes # (Manual) Eosinophils # (Manual) Basophils # (Manual) PT INR D-Dimer ABG pH ABG pO2 ABG HCO3 ABG O2 Saturation ABG Base Excess ABG Hemoglobin Oxyhemoglobin Sodium Potassium Chloride Carbon Dioxide BUN 33 H Creatinine 0.5 L Glucose 136 H POC Glucose 164 H 145 H Lactic Acid Calcium Magnesium Iron TIBC Ferritin AST ALT Lactate Dehydrogenase Troponin T C-Reactive Protein Total Protein Albumin Prealbumin Cholesterol LDL Cholesterol Direct HDL Cholesterol Urine WBC (Auto) Vancomycin Trough Coronavirus (PCR) Crossmatch 07/13/19 07/14/19 07/14/19 18:30 00:21 04:40 WBC 22.9 H RBC 2.45 L Hgb 6.6 L Hct 21.1 L MCV MCH 27 L MCHC 31 L RDW 19.2 H Plt Count Lymph % (Auto) Lyman % (Auto) Lymph # Lyman # Baso # Seg Neutrophils % Seg Neuts % (Manual) 91.0 H Lymphocytes % (Manual) 7.0 L Monocytes % (Manual) Basophils % (Manual) Nucleated RBC % Seg Neutrophils # Seg Neutrophils # Man 20.8 H Lymphocytes # (Manual) Monocytes # (Manual) Eosinophils # (Manual) Basophils # (Manual) PT INR D-Dimer ABG pH ABG pO2 58.1 L ABG HCO3 ABG O2 Saturation 88.7 L ABG Base Excess ABG Hemoglobin 7.8 L Oxyhemoglobin 86.8 L Sodium Potassium Chloride Carbon Dioxide BUN Creatinine Glucose POC Glucose 118 H Lactic Acid Calcium Magnesium Iron TIBC Ferritin AST ALT Lactate Dehydrogenase Troponin T C-Reactive Protein Total Protein Albumin Prealbumin Cholesterol LDL Cholesterol Direct HDL Cholesterol Urine WBC (Auto) Vancomycin Trough Coronavirus (PCR) Crossmatch 07/14/19 07/14/19 07/14/19 04:40 05:38 05:45 WBC RBC Hgb Hct MCV MCH MCHC RDW Plt Count Lymph % (Auto) Lyman % (Auto) Lymph # Lyman # Baso # Seg Neutrophils % Seg Neuts % (Manual) Lymphocytes % (Manual) Monocytes % (Manual) Basophils % (Manual) Nucleated RBC % Seg Neutrophils # Seg Neutrophils # Man Lymphocytes # (Manual) Monocytes # (Manual) Eosinophils # (Manual) Basophils # (Manual) PT INR D-Dimer ABG pH 7.230 L ABG pO2 72.1 L ABG HCO3 ABG O2 Saturation 89.3 L ABG Base Excess -2.7 L ABG Hemoglobin 6.7 L Oxyhemoglobin 87.7 L Sodium Potassium Chloride 107.4 H Carbon Dioxide BUN 45 H Creatinine Glucose 101 H POC Glucose 154 H Lactic Acid Calcium Magnesium Iron TIBC Ferritin AST ALT Lactate Dehydrogenase Troponin T C-Reactive Protein Total Protein Albumin Prealbumin Cholesterol LDL Cholesterol Direct HDL Cholesterol Urine WBC (Auto) Vancomycin Trough Coronavirus (PCR) Crossmatch 07/14/19 07/14/19 07/14/19 12:25 18:20 19:01 WBC 22.4 H RBC 2.70 L Hgb 7.5 L Hct 23.3 L MCV MCH MCHC RDW 19.5 H Plt Count Lymph % (Auto) Lyman % (Auto) Lymph # Lyman # Baso # Seg Neutrophils % Seg Neuts % (Manual) Lymphocytes % (Manual) Monocytes % (Manual) Basophils % (Manual) Nucleated RBC % Seg Neutrophils # Seg Neutrophils # Man Lymphocytes # (Manual) Monocytes # (Manual) Eosinophils # (Manual) Basophils # (Manual) PT INR D-Dimer ABG pH ABG pO2 ABG HCO3 ABG O2 Saturation ABG Base Excess ABG Hemoglobin Oxyhemoglobin Sodium Potassium Chloride Carbon Dioxide BUN Creatinine Glucose POC Glucose 136 H 131 H Lactic Acid Calcium Magnesium Iron TIBC Ferritin AST ALT Lactate Dehydrogenase Troponin T C-Reactive Protein Total Protein Albumin Prealbumin Cholesterol LDL Cholesterol Direct HDL Cholesterol Urine WBC (Auto) Vancomycin Trough Coronavirus (PCR) Crossmatch 07/15/19 07/15/19 07/15/19 00:17 04:35 05:18 WBC 20.6 H RBC 2.41 L Hgb 6.8 L Hct 20.7 L MCV MCH MCHC RDW 20.2 H Plt Count Lymph % (Auto) Lyman % (Auto) Lymph # Lyman # Baso # Seg Neutrophils % Seg Neuts % (Manual) 92.0 H Lymphocytes % (Manual) 5.0 L Monocytes % (Manual) Basophils % (Manual) Nucleated RBC % Seg Neutrophils # Seg Neutrophils # Man 19.0 H Lymphocytes # (Manual) 1.0 L Monocytes # (Manual) Eosinophils # (Manual) Basophils # (Manual) PT INR D-Dimer ABG pH 7.342 L ABG pO2 ABG HCO3 ABG O2 Saturation ABG Base Excess -3.1 L ABG Hemoglobin 7.2 L Oxyhemoglobin 94.9 L Sodium Potassium Chloride Carbon Dioxide BUN Creatinine Glucose POC Glucose 116 H Lactic Acid Calcium Magnesium Iron TIBC Ferritin AST ALT Lactate Dehydrogenase Troponin T C-Reactive Protein Total Protein Albumin Prealbumin Cholesterol LDL Cholesterol Direct HDL Cholesterol Urine WBC (Auto) Vancomycin Trough Coronavirus (PCR) Crossmatch 07/15/19 07/15/19 07/15/19 05:18 05:57 11:28 WBC RBC Hgb Hct MCV MCH MCHC RDW Plt Count Lymph % (Auto) Lyman % (Auto) Lymph # Lyman # Baso # Seg Neutrophils % Seg Neuts % (Manual) Lymphocytes % (Manual) Monocytes % (Manual) Basophils % (Manual) Nucleated RBC % Seg Neutrophils # Seg Neutrophils # Man Lymphocytes # (Manual) Monocytes # (Manual) Eosinophils # (Manual) Basophils # (Manual) PT INR D-Dimer ABG pH ABG pO2 ABG HCO3 ABG O2 Saturation ABG Base Excess ABG Hemoglobin Oxyhemoglobin Sodium Potassium Chloride Carbon Dioxide 20 L BUN 59 H Creatinine Glucose 140 H POC Glucose 139 H 117 H Lactic Acid Calcium Magnesium Iron TIBC Ferritin AST ALT Lactate Dehydrogenase Troponin T C-Reactive Protein Total Protein Albumin Prealbumin Cholesterol LDL Cholesterol Direct HDL Cholesterol Urine WBC (Auto) Vancomycin Trough Coronavirus (PCR) Crossmatch 07/15/19 07/16/19 07/16/19 18:13 00:06 03:43 WBC RBC Hgb Hct MCV MCH MCHC RDW Plt Count Lymph % (Auto) Lyman % (Auto) Lymph # Lyman # Baso # Seg Neutrophils % Seg Neuts % (Manual) Lymphocytes % (Manual) Monocytes % (Manual) Basophils % (Manual) Nucleated RBC % Seg Neutrophils # Seg Neutrophils # Man Lymphocytes # (Manual) Monocytes # (Manual) Eosinophils # (Manual) Basophils # (Manual) PT INR D-Dimer ABG pH 7.344 L ABG pO2 68.6 L ABG HCO3 ABG O2 Saturation ABG Base Excess -3.5 L ABG Hemoglobin 6.1 L Oxyhemoglobin 93.3 L Sodium Potassium Chloride Carbon Dioxide BUN Creatinine Glucose POC Glucose 114 H 119 H Lactic Acid Calcium Magnesium Iron TIBC Ferritin AST ALT Lactate Dehydrogenase Troponin T C-Reactive Protein Total Protein Albumin Prealbumin Cholesterol LDL Cholesterol Direct HDL Cholesterol Urine WBC (Auto) Vancomycin Trough Coronavirus (PCR) Crossmatch 07/16/19 07/16/19 07/16/19 04:41 04:41 12:09 WBC 19.6 H RBC 2.81 L Hgb 7.7 L Hct 24.0 L MCV MCH 27 L MCHC RDW 19.4 H Plt Count 514 H Lymph % (Auto) 6.7 L Lyman % (Auto) Lymph # Lyman # 1.0 H Baso # Seg Neutrophils % 87.0 H Seg Neuts % (Manual) Lymphocytes % (Manual) Monocytes % (Manual) Basophils % (Manual) Nucleated RBC % Seg Neutrophils # 17.0 H Seg Neutrophils # Man Lymphocytes # (Manual) Monocytes # (Manual) Eosinophils # (Manual) Basophils # (Manual) PT INR D-Dimer ABG pH ABG pO2 ABG HCO3 ABG O2 Saturation ABG Base Excess ABG Hemoglobin Oxyhemoglobin Sodium Potassium 5.9 H Chloride Carbon Dioxide 21 L BUN 73 H Creatinine 2.0 H Glucose POC Glucose 141 H Lactic Acid Calcium Magnesium Iron TIBC Ferritin AST ALT Lactate Dehydrogenase Troponin T C-Reactive Protein Total Protein Albumin Prealbumin Cholesterol LDL Cholesterol Direct HDL Cholesterol Urine WBC (Auto) Vancomycin Trough Coronavirus (PCR) Crossmatch 07/16/19 07/16/19 07/17/19 16:19 17:45 00:16 WBC RBC Hgb Hct MCV MCH MCHC RDW Plt Count Lymph % (Auto) Lyman % (Auto) Lymph # Lyman # Baso # Seg Neutrophils % Seg Neuts % (Manual) Lymphocytes % (Manual) Monocytes % (Manual) Basophils % (Manual) Nucleated RBC % Seg Neutrophils # Seg Neutrophils # Man Lymphocytes # (Manual) Monocytes # (Manual) Eosinophils # (Manual) Basophils # (Manual) PT INR D-Dimer ABG pH ABG pO2 ABG HCO3 ABG O2 Saturation ABG Base Excess ABG Hemoglobin Oxyhemoglobin Sodium Potassium 5.1 H Chloride Carbon Dioxide 20 L BUN 72 H Creatinine 1.7 H Glucose 128 H POC Glucose 181 H 164 H Lactic Acid Calcium Magnesium Iron TIBC Ferritin AST ALT Lactate Dehydrogenase Troponin T C-Reactive Protein Total Protein Albumin Prealbumin Cholesterol LDL Cholesterol Direct HDL Cholesterol Urine WBC (Auto) Vancomycin Trough Coronavirus (PCR) Crossmatch 07/17/19 07/17/19 07/17/19 04:20 04:39 04:39 WBC 16.1 H RBC 2.92 L Hgb 8.0 L Hct 25.5 L MCV MCH MCHC 31 L RDW 19.7 H Plt Count 564 H Lymph % (Auto) 3.6 L Lyman % (Auto) 7.4 H Lymph # 0.6 L Lyman # 1.2 H Baso # Seg Neutrophils % 87.5 H Seg Neuts % (Manual) Lymphocytes % (Manual) Monocytes % (Manual) Basophils % (Manual) Nucleated RBC % Seg Neutrophils # 14.1 H Seg Neutrophils # Man Lymphocytes # (Manual) Monocytes # (Manual) Eosinophils # (Manual) Basophils # (Manual) PT INR D-Dimer ABG pH 7.231 L ABG pO2 95.3 H ABG HCO3 ABG O2 Saturation ABG Base Excess -5.0 L ABG Hemoglobin 7.9 L Oxyhemoglobin 94.8 L Sodium Potassium Chloride 107.8 H Carbon Dioxide 21 L BUN 68 H Creatinine Glucose POC Glucose Lactic Acid Calcium Magnesium Iron TIBC Ferritin AST ALT Lactate Dehydrogenase Troponin T C-Reactive Protein Total Protein Albumin Prealbumin Cholesterol LDL Cholesterol Direct HDL Cholesterol Urine WBC (Auto) Vancomycin Trough Coronavirus (PCR) Crossmatch 07/17/19 07/17/19 07/17/19 05:28 12:11 18:48 WBC RBC Hgb Hct MCV MCH MCHC RDW Plt Count Lymph % (Auto) Lyman % (Auto) Lymph # Lyman # Baso # Seg Neutrophils % Seg Neuts % (Manual) Lymphocytes % (Manual) Monocytes % (Manual) Basophils % (Manual) Nucleated RBC % Seg Neutrophils # Seg Neutrophils # Man Lymphocytes # (Manual) Monocytes # (Manual) Eosinophils # (Manual) Basophils # (Manual) PT INR D-Dimer ABG pH ABG pO2 ABG HCO3 ABG O2 Saturation ABG Base Excess ABG Hemoglobin Oxyhemoglobin Sodium Potassium Chloride Carbon Dioxide BUN Creatinine Glucose POC Glucose 121 H 125 H 174 H Lactic Acid Calcium Magnesium Iron TIBC Ferritin AST ALT Lactate Dehydrogenase Troponin T C-Reactive Protein Total Protein Albumin Prealbumin Cholesterol LDL Cholesterol Direct HDL Cholesterol Urine WBC (Auto) Vancomycin Trough Coronavirus (PCR) Crossmatch 07/17/19 07/17/19 07/18/19 19:55 23:57 02:30 WBC RBC Hgb Hct MCV MCH MCHC RDW Plt Count Lymph % (Auto) Lyman % (Auto) Lymph # Lyman # Baso # Seg Neutrophils % Seg Neuts % (Manual) Lymphocytes % (Manual) Monocytes % (Manual) Basophils % (Manual) Nucleated RBC % Seg Neutrophils # Seg Neutrophils # Man Lymphocytes # (Manual) Monocytes # (Manual) Eosinophils # (Manual) Basophils # (Manual) PT INR D-Dimer ABG pH 7.344 L 7.294 L ABG pO2 78.5 L 119.2 H ABG HCO3 ABG O2 Saturation ABG Base Excess -3.3 L -2.6 L ABG Hemoglobin 8.6 L 8.1 L Oxyhemoglobin 94.8 L Sodium Potassium Chloride Carbon Dioxide BUN Creatinine Glucose POC Glucose 148 H Lactic Acid Calcium Magnesium Iron TIBC Ferritin AST ALT Lactate Dehydrogenase Troponin T C-Reactive Protein Total Protein Albumin Prealbumin Cholesterol LDL Cholesterol Direct HDL Cholesterol Urine WBC (Auto) Vancomycin Trough Coronavirus (PCR) Crossmatch 07/18/19 07/18/19 07/18/19 04:49 05:22 05:22 WBC 15.9 H RBC 3.00 L Hgb 8.1 L Hct 26.0 L MCV MCH 27 L MCHC 31 L RDW 19.4 H Plt Count 733 H Lymph % (Auto) 6.3 L Lyman % (Auto) 7.4 H Lymph # 1.0 L Lyman # 1.2 H Baso # 0.2 H Seg Neutrophils % 83.8 H Seg Neuts % (Manual) Lymphocytes % (Manual) Monocytes % (Manual) Basophils % (Manual) Nucleated RBC % Seg Neutrophils # 13.3 H Seg Neutrophils # Man Lymphocytes # (Manual) Monocytes # (Manual) Eosinophils # (Manual) Basophils # (Manual) PT INR D-Dimer ABG pH ABG pO2 ABG HCO3 ABG O2 Saturation ABG Base Excess ABG Hemoglobin Oxyhemoglobin Sodium Potassium Chloride 110.6 H Carbon Dioxide BUN 61 H Creatinine Glucose 109 H POC Glucose 116 H Lactic Acid Calcium Magnesium Iron TIBC Ferritin AST ALT Lactate Dehydrogenase Troponin T C-Reactive Protein Total Protein Albumin Prealbumin Cholesterol LDL Cholesterol Direct HDL Cholesterol Urine WBC (Auto) Vancomycin Trough Coronavirus (PCR) Crossmatch 07/18/19 07/18/19 07/18/19 12:23 18:06 22:20 WBC RBC Hgb Hct MCV MCH MCHC RDW Plt Count Lymph % (Auto) Lyman % (Auto) Lymph # Lyman # Baso # Seg Neutrophils % Seg Neuts % (Manual) Lymphocytes % (Manual) Monocytes % (Manual) Basophils % (Manual) Nucleated RBC % Seg Neutrophils # Seg Neutrophils # Man Lymphocytes # (Manual) Monocytes # (Manual) Eosinophils # (Manual) Basophils # (Manual) PT INR D-Dimer ABG pH 7.338 L ABG pO2 135.1 H ABG HCO3 ABG O2 Saturation ABG Base Excess ABG Hemoglobin 9.2 L Oxyhemoglobin Sodium Potassium Chloride Carbon Dioxide BUN Creatinine Glucose POC Glucose 114 H 113 H Lactic Acid Calcium Magnesium Iron TIBC Ferritin AST ALT Lactate Dehydrogenase Troponin T C-Reactive Protein Total Protein Albumin Prealbumin Cholesterol LDL Cholesterol Direct HDL Cholesterol Urine WBC (Auto) Vancomycin Trough Coronavirus (PCR) Crossmatch 07/18/19 07/19/19 07/19/19 23:33 03:45 05:18 WBC RBC Hgb Hct MCV MCH MCHC RDW Plt Count Lymph % (Auto) Lyman % (Auto) Lymph # Lyman # Baso # Seg Neutrophils % Seg Neuts % (Manual) Lymphocytes % (Manual) Monocytes % (Manual) Basophils % (Manual) Nucleated RBC % Seg Neutrophils # Seg Neutrophils # Man Lymphocytes # (Manual) Monocytes # (Manual) Eosinophils # (Manual) Basophils # (Manual) PT INR D-Dimer ABG pH 7.342 L ABG pO2 95.0 H ABG HCO3 ABG O2 Saturation ABG Base Excess ABG Hemoglobin 8.5 L Oxyhemoglobin Sodium Potassium Chloride Carbon Dioxide BUN Creatinine Glucose POC Glucose 125 H 111 H Lactic Acid Calcium Magnesium Iron TIBC Ferritin AST ALT Lactate Dehydrogenase Troponin T C-Reactive Protein Total Protein Albumin Prealbumin Cholesterol LDL Cholesterol Direct HDL Cholesterol Urine WBC (Auto) Vancomycin Trough Coronavirus (PCR) Crossmatch 07/19/19 07/19/19 07/19/19 08:45 08:45 11:47 WBC 15.9 H RBC 3.31 L Hgb 9.1 L Hct 28.4 L MCV MCH 27 L MCHC RDW 19.1 H Plt Count 858 H Lymph % (Auto) 4.9 L Lyman % (Auto) 8.1 H Lymph # 0.8 L Lyman # 1.3 H Baso # Seg Neutrophils % 85.5 H Seg Neuts % (Manual) Lymphocytes % (Manual) Monocytes % (Manual) Basophils % (Manual) Nucleated RBC % Seg Neutrophils # 13.6 H Seg Neutrophils # Man Lymphocytes # (Manual) Monocytes # (Manual) Eosinophils # (Manual) Basophils # (Manual) PT INR D-Dimer ABG pH ABG pO2 ABG HCO3 ABG O2 Saturation ABG Base Excess ABG Hemoglobin Oxyhemoglobin Sodium Potassium Chloride 111.6 H Carbon Dioxide BUN 50 H Creatinine 0.7 L Glucose 118 H POC Glucose 114 H Lactic Acid Calcium Magnesium Iron TIBC Ferritin AST ALT Lactate Dehydrogenase Troponin T C-Reactive Protein Total Protein Albumin Prealbumin Cholesterol LDL Cholesterol Direct HDL Cholesterol Urine WBC (Auto) Vancomycin Trough Coronavirus (PCR) Crossmatch 07/19/19 07/19/19 07/20/19 18:25 23:44 04:39 WBC RBC Hgb Hct MCV MCH MCHC RDW Plt Count Lymph % (Auto) Lyman % (Auto) Lymph # Lyman # Baso # Seg Neutrophils % Seg Neuts % (Manual) Lymphocytes % (Manual) Monocytes % (Manual) Basophils % (Manual) Nucleated RBC % Seg Neutrophils # Seg Neutrophils # Man Lymphocytes # (Manual) Monocytes # (Manual) Eosinophils # (Manual) Basophils # (Manual) PT INR D-Dimer ABG pH ABG pO2 ABG HCO3 ABG O2 Saturation ABG Base Excess ABG Hemoglobin Oxyhemoglobin Sodium Potassium Chloride 110.3 H Carbon Dioxide BUN 44 H Creatinine 0.6 L Glucose 120 H POC Glucose 115 H 117 H Lactic Acid Calcium Magnesium Iron TIBC Ferritin AST ALT Lactate Dehydrogenase Troponin T C-Reactive Protein Total Protein Albumin Prealbumin Cholesterol LDL Cholesterol Direct HDL Cholesterol Urine WBC (Auto) Vancomycin Trough Coronavirus (PCR) Crossmatch 07/20/19 07/21/19 07/21/19 05:30 11:59 17:40 WBC RBC Hgb Hct MCV MCH MCHC RDW Plt Count Lymph % (Auto) Lyman % (Auto) Lymph # Lyman # Baso # Seg Neutrophils % Seg Neuts % (Manual) Lymphocytes % (Manual) Monocytes % (Manual) Basophils % (Manual) Nucleated RBC % Seg Neutrophils # Seg Neutrophils # Man Lymphocytes # (Manual) Monocytes # (Manual) Eosinophils # (Manual) Basophils # (Manual) PT INR D-Dimer ABG pH ABG pO2 ABG HCO3 ABG O2 Saturation ABG Base Excess ABG Hemoglobin Oxyhemoglobin Sodium Potassium Chloride Carbon Dioxide BUN Creatinine Glucose POC Glucose 131 H 122 H 125 H Lactic Acid Calcium Magnesium Iron TIBC Ferritin AST ALT Lactate Dehydrogenase Troponin T C-Reactive Protein Total Protein Albumin Prealbumin Cholesterol LDL Cholesterol Direct HDL Cholesterol Urine WBC (Auto) Vancomycin Trough Coronavirus (PCR) Crossmatch 07/22/19 07/22/19 07/22/19 05:38 05:38 12:29 WBC 12.6 H RBC 3.19 L Hgb 8.9 L Hct 27.5 L MCV MCH MCHC RDW 18.9 H Plt Count 1101 H* Lymph % (Auto) Lyman % (Auto) 12.2 H Lymph # Lyman # 1.5 H Baso # Seg Neutrophils % 72.8 H Seg Neuts % (Manual) 76.0 H Lymphocytes % (Manual) 7.0 L Monocytes % (Manual) 14.0 H Basophils % (Manual) Nucleated RBC % 1.0 H Seg Neutrophils # 9.2 H Seg Neutrophils # Man 9.6 H Lymphocytes # (Manual) 0.9 L Monocytes # (Manual) 1.8 H Eosinophils # (Manual) Basophils # (Manual) PT INR D-Dimer ABG pH ABG pO2 ABG HCO3 ABG O2 Saturation ABG Base Excess ABG Hemoglobin Oxyhemoglobin Sodium Potassium 3.4 L Chloride Carbon Dioxide BUN 29 H Creatinine 0.5 L Glucose POC Glucose 116 H Lactic Acid Calcium Magnesium Iron TIBC Ferritin AST ALT Lactate Dehydrogenase Troponin T C-Reactive Protein Total Protein Albumin Prealbumin Cholesterol LDL Cholesterol Direct HDL Cholesterol Urine WBC (Auto) Vancomycin Trough Coronavirus (PCR) Crossmatch 07/22/19 07/22/19 07/23/19 18:20 23:51 04:52 WBC RBC Hgb Hct MCV MCH MCHC RDW Plt Count Lymph % (Auto) Lyman % (Auto) Lymph # Lyman # Baso # Seg Neutrophils % Seg Neuts % (Manual) Lymphocytes % (Manual) Monocytes % (Manual) Basophils % (Manual) Nucleated RBC % Seg Neutrophils # Seg Neutrophils # Man Lymphocytes # (Manual) Monocytes # (Manual) Eosinophils # (Manual) Basophils # (Manual) PT INR D-Dimer ABG pH ABG pO2 ABG HCO3 ABG O2 Saturation ABG Base Excess ABG Hemoglobin Oxyhemoglobin Sodium Potassium Chloride Carbon Dioxide BUN 24 H Creatinine 0.4 L Glucose POC Glucose 107 H 110 H Lactic Acid Calcium Magnesium Iron TIBC Ferritin AST ALT Lactate Dehydrogenase Troponin T C-Reactive Protein Total Protein Albumin Prealbumin Cholesterol LDL Cholesterol Direct HDL Cholesterol Urine WBC (Auto) Vancomycin Trough Coronavirus (PCR) Crossmatch 07/23/19 07/23/19 07/24/19 06:00 23:15 04:40 WBC RBC Hgb Hct MCV MCH MCHC RDW Plt Count Lymph % (Auto) Lyman % (Auto) Lymph # Lyman # Baso # Seg Neutrophils % Seg Neuts % (Manual) Lymphocytes % (Manual) Monocytes % (Manual) Basophils % (Manual) Nucleated RBC % Seg Neutrophils # Seg Neutrophils # Man Lymphocytes # (Manual) Monocytes # (Manual) Eosinophils # (Manual) Basophils # (Manual) PT INR D-Dimer ABG pH ABG pO2 73.5 L ABG HCO3 27.0 H 28.5 H ABG O2 Saturation 94.5 L ABG Base Excess ABG Hemoglobin 9.4 L 8.9 L Oxyhemoglobin 94.0 L 92.7 L Sodium Potassium Chloride Carbon Dioxide BUN Creatinine Glucose POC Glucose 117 H Lactic Acid Calcium Magnesium Iron TIBC Ferritin AST ALT Lactate Dehydrogenase Troponin T C-Reactive Protein Total Protein Albumin Prealbumin Cholesterol LDL Cholesterol Direct HDL Cholesterol Urine WBC (Auto) Vancomycin Trough Coronavirus (PCR) Crossmatch 07/24/19 07/24/19 07/25/19 05:25 12:06 00:16 WBC RBC Hgb Hct MCV MCH MCHC RDW Plt Count Lymph % (Auto) Lyman % (Auto) Lymph # Lyman # Baso # Seg Neutrophils % Seg Neuts % (Manual) Lymphocytes % (Manual) Monocytes % (Manual) Basophils % (Manual) Nucleated RBC % Seg Neutrophils # Seg Neutrophils # Man Lymphocytes # (Manual) Monocytes # (Manual) Eosinophils # (Manual) Basophils # (Manual) PT INR D-Dimer ABG pH ABG pO2 ABG HCO3 ABG O2 Saturation ABG Base Excess ABG Hemoglobin Oxyhemoglobin Sodium Potassium Chloride Carbon Dioxide BUN Creatinine Glucose POC Glucose 114 H 108 H 106 H Lactic Acid Calcium Magnesium Iron TIBC Ferritin AST ALT Lactate Dehydrogenase Troponin T C-Reactive Protein Total Protein Albumin Prealbumin Cholesterol LDL Cholesterol Direct HDL Cholesterol Urine WBC (Auto) Vancomycin Trough Coronavirus (PCR) Crossmatch 07/25/19 07/25/19 07/25/19 05:14 05:14 05:17 WBC 17.8 H RBC 3.32 L Hgb 9.2 L Hct 28.6 L MCV MCH MCHC RDW 19.9 H Plt Count 994 H Lymph % (Auto) Lyman % (Auto) Lymph # Lyman # Baso # Seg Neutrophils % Seg Neuts % (Manual) 82.0 H Lymphocytes % (Manual) 5.0 L Monocytes % (Manual) Basophils % (Manual) Nucleated RBC % Seg Neutrophils # Seg Neutrophils # Man 14.6 H Lymphocytes # (Manual) 0.9 L Monocytes # (Manual) 1.2 H Eosinophils # (Manual) Basophils # (Manual) PT INR D-Dimer ABG pH ABG pO2 ABG HCO3 ABG O2 Saturation ABG Base Excess ABG Hemoglobin Oxyhemoglobin Sodium Potassium Chloride Carbon Dioxide BUN Creatinine 0.4 L Glucose 110 H POC Glucose 107 H Lactic Acid Calcium Magnesium Iron TIBC Ferritin AST ALT Lactate Dehydrogenase Troponin T C-Reactive Protein Total Protein Albumin Prealbumin Cholesterol LDL Cholesterol Direct HDL Cholesterol Urine WBC (Auto) Vancomycin Trough Coronavirus (PCR) Crossmatch 07/25/19 07/25/19 07/26/19 11:55 23:49 06:01 WBC RBC Hgb Hct MCV MCH MCHC RDW Plt Count Lymph % (Auto) Lyman % (Auto) Lymph # Lyman # Baso # Seg Neutrophils % Seg Neuts % (Manual) Lymphocytes % (Manual) Monocytes % (Manual) Basophils % (Manual) Nucleated RBC % Seg Neutrophils # Seg Neutrophils # Man Lymphocytes # (Manual) Monocytes # (Manual) Eosinophils # (Manual) Basophils # (Manual) PT INR D-Dimer ABG pH ABG pO2 ABG HCO3 ABG O2 Saturation ABG Base Excess ABG Hemoglobin Oxyhemoglobin Sodium Potassium Chloride Carbon Dioxide BUN Creatinine Glucose POC Glucose 123 H 118 H 106 H Lactic Acid Calcium Magnesium Iron TIBC Ferritin AST ALT Lactate Dehydrogenase Troponin T C-Reactive Protein Total Protein Albumin Prealbumin Cholesterol LDL Cholesterol Direct HDL Cholesterol Urine WBC (Auto) Vancomycin Trough Coronavirus (PCR) Crossmatch 07/26/19 07/27/19 07/27/19 17:02 00:28 05:16 WBC RBC Hgb Hct MCV MCH MCHC RDW Plt Count Lymph % (Auto) Lyman % (Auto) Lymph # Lyman # Baso # Seg Neutrophils % Seg Neuts % (Manual) Lymphocytes % (Manual) Monocytes % (Manual) Basophils % (Manual) Nucleated RBC % Seg Neutrophils # Seg Neutrophils # Man Lymphocytes # (Manual) Monocytes # (Manual) Eosinophils # (Manual) Basophils # (Manual) PT INR D-Dimer ABG pH ABG pO2 63.4 L ABG HCO3 31.3 H ABG O2 Saturation 92.7 L ABG Base Excess 6.3 H ABG Hemoglobin 7.6 L Oxyhemoglobin 90.9 L Sodium Potassium Chloride Carbon Dioxide BUN Creatinine Glucose POC Glucose 116 H 158 H Lactic Acid Calcium Magnesium Iron TIBC Ferritin AST ALT Lactate Dehydrogenase Troponin T C-Reactive Protein Total Protein Albumin Prealbumin Cholesterol LDL Cholesterol Direct HDL Cholesterol Urine WBC (Auto) Vancomycin Trough Coronavirus (PCR) Crossmatch 07/28/19 07/28/19 07/28/19 10:13 10:13 23:54 WBC 18.5 H RBC 3.20 L Hgb 8.8 L Hct 26.8 L MCV MCH 27 L MCHC RDW 19.9 H Plt Count 730 H Lymph % (Auto) Lyman % (Auto) Lymph # Lyman # Baso # Seg Neutrophils % Seg Neuts % (Manual) Lymphocytes % (Manual) Monocytes % (Manual) Basophils % (Manual) Nucleated RBC % Seg Neutrophils # Seg Neutrophils # Man Lymphocytes # (Manual) Monocytes # (Manual) Eosinophils # (Manual) Basophils # (Manual) PT INR D-Dimer ABG pH ABG pO2 ABG HCO3 ABG O2 Saturation ABG Base Excess ABG Hemoglobin Oxyhemoglobin Sodium Potassium 3.2 L Chloride 97.5 L Carbon Dioxide 31 H BUN Creatinine 0.5 L Glucose POC Glucose 120 H Lactic Acid Calcium Magnesium Iron TIBC Ferritin AST ALT Lactate Dehydrogenase Troponin T C-Reactive Protein Total Protein Albumin Prealbumin Cholesterol LDL Cholesterol Direct HDL Cholesterol Urine WBC (Auto) Vancomycin Trough Coronavirus (PCR) Crossmatch 07/29/19 07/29/19 07/29/19 11:57 17:43 Unknown WBC RBC Hgb Hct MCV MCH MCHC RDW Plt Count Lymph % (Auto) Lyman % (Auto) Lymph # Lyman # Baso # Seg Neutrophils % Seg Neuts % (Manual) Lymphocytes % (Manual) Monocytes % (Manual) Basophils % (Manual) Nucleated RBC % Seg Neutrophils # Seg Neutrophils # Man Lymphocytes # (Manual) Monocytes # (Manual) Eosinophils # (Manual) Basophils # (Manual) PT INR D-Dimer ABG pH ABG pO2 ABG HCO3 ABG O2 Saturation ABG Base Excess ABG Hemoglobin Oxyhemoglobin Sodium Potassium Chloride Carbon Dioxide BUN Creatinine Glucose POC Glucose 112 H Lactic Acid Calcium Magnesium Iron TIBC Ferritin AST ALT Lactate Dehydrogenase Troponin T C-Reactive Protein Total Protein Albumin Prealbumin Cholesterol LDL Cholesterol Direct HDL Cholesterol Urine WBC (Auto) 63.0 H Vancomycin Trough Coronavirus (PCR) Positive A Crossmatch 07/30/19 07/30/19 07/30/19 00:20 04:35 04:35 WBC 24.3 H RBC 3.12 L Hgb 8.5 L Hct 26.3 L MCV MCH 27 L MCHC RDW 20.2 H Plt Count 550 H Lymph % (Auto) Lyman % (Auto) Lymph # Lyman # Baso # Seg Neutrophils % Seg Neuts % (Manual) Lymphocytes % (Manual) Monocytes % (Manual) Basophils % (Manual) Nucleated RBC % Seg Neutrophils # Seg Neutrophils # Man Lymphocytes # (Manual) Monocytes # (Manual) Eosinophils # (Manual) Basophils # (Manual) PT INR D-Dimer ABG pH ABG pO2 ABG HCO3 ABG O2 Saturation ABG Base Excess ABG Hemoglobin Oxyhemoglobin Sodium Potassium 3.0 L Chloride 96.3 L Carbon Dioxide 32 H BUN Creatinine 0.5 L Glucose POC Glucose 106 H Lactic Acid Calcium Magnesium Iron TIBC Ferritin AST ALT Lactate Dehydrogenase Troponin T C-Reactive Protein Total Protein Albumin Prealbumin Cholesterol LDL Cholesterol Direct HDL Cholesterol Urine WBC (Auto) Vancomycin Trough Coronavirus (PCR) Crossmatch 07/31/19 07/31/19 07/31/19 04:42 04:42 11:33 WBC 23.8 H RBC 3.10 L Hgb 8.4 L Hct 26.1 L MCV MCH 27 L MCHC RDW 19.6 H Plt Count 561 H Lymph % (Auto) Lyman % (Auto) Lymph # Lyman # Baso # Seg Neutrophils % Seg Neuts % (Manual) Lymphocytes % (Manual) Monocytes % (Manual) Basophils % (Manual) Nucleated RBC % Seg Neutrophils # Seg Neutrophils # Man Lymphocytes # (Manual) Monocytes # (Manual) Eosinophils # (Manual) Basophils # (Manual) PT INR D-Dimer ABG pH ABG pO2 ABG HCO3 ABG O2 Saturation ABG Base Excess ABG Hemoglobin Oxyhemoglobin Sodium 135 L Potassium Chloride 93.9 L Carbon Dioxide 32 H BUN Creatinine 0.4 L Glucose POC Glucose 116 H Lactic Acid Calcium Magnesium Iron TIBC Ferritin AST ALT Lactate Dehydrogenase Troponin T C-Reactive Protein Total Protein Albumin 1.6 L Prealbumin 0.037 L Cholesterol LDL Cholesterol Direct HDL Cholesterol Urine WBC (Auto) Vancomycin Trough Coronavirus (PCR) Crossmatch 07/31/19 08/01/19 08/01/19 23:33 04:57 04:57 WBC 26.7 H RBC 3.12 L Hgb 8.5 L Hct 26.3 L MCV MCH 27 L MCHC RDW 19.2 H Plt Count 602 H Lymph % (Auto) Lyman % (Auto) Lymph # Lyman # Baso # Seg Neutrophils % Seg Neuts % (Manual) 93.0 H Lymphocytes % (Manual) 2.0 L Monocytes % (Manual) Basophils % (Manual) Nucleated RBC % Seg Neutrophils # Seg Neutrophils # Man 24.8 H Lymphocytes # (Manual) 0.5 L Monocytes # (Manual) 1.1 H Eosinophils # (Manual) Basophils # (Manual) PT INR D-Dimer ABG pH ABG pO2 ABG HCO3 ABG O2 Saturation ABG Base Excess ABG Hemoglobin Oxyhemoglobin Sodium 132 L Potassium Chloride 93.8 L Carbon Dioxide 31 H BUN Creatinine 0.3 L Glucose POC Glucose 148 H Lactic Acid Calcium 8.1 L Magnesium Iron TIBC Ferritin AST ALT Lactate Dehydrogenase Troponin T C-Reactive Protein Total Protein Albumin Prealbumin Cholesterol LDL Cholesterol Direct HDL Cholesterol Urine WBC (Auto) Vancomycin Trough Coronavirus (PCR) Crossmatch 08/01/19 08/02/19 08/02/19 12:16 00:22 05:24 WBC RBC Hgb Hct MCV MCH MCHC RDW Plt Count Lymph % (Auto) Lyman % (Auto) Lymph # Lyman # Baso # Seg Neutrophils % Seg Neuts % (Manual) Lymphocytes % (Manual) Monocytes % (Manual) Basophils % (Manual) Nucleated RBC % Seg Neutrophils # Seg Neutrophils # Man Lymphocytes # (Manual) Monocytes # (Manual) Eosinophils # (Manual) Basophils # (Manual) PT INR D-Dimer ABG pH ABG pO2 ABG HCO3 ABG O2 Saturation ABG Base Excess ABG Hemoglobin Oxyhemoglobin Sodium Potassium Chloride Carbon Dioxide BUN Creatinine Glucose POC Glucose 120 H 119 H 113 H Lactic Acid Calcium Magnesium Iron TIBC Ferritin AST ALT Lactate Dehydrogenase Troponin T C-Reactive Protein Total Protein Albumin Prealbumin Cholesterol LDL Cholesterol Direct HDL Cholesterol Urine WBC (Auto) Vancomycin Trough Coronavirus (PCR) Crossmatch 08/03/19 08/03/19 08/03/19 05:20 12:01 23:48 WBC RBC Hgb Hct MCV MCH MCHC RDW Plt Count Lymph % (Auto) Lyman % (Auto) Lymph # Lyman # Baso # Seg Neutrophils % Seg Neuts % (Manual) Lymphocytes % (Manual) Monocytes % (Manual) Basophils % (Manual) Nucleated RBC % Seg Neutrophils # Seg Neutrophils # Man Lymphocytes # (Manual) Monocytes # (Manual) Eosinophils # (Manual) Basophils # (Manual) PT INR D-Dimer ABG pH ABG pO2 ABG HCO3 ABG O2 Saturation ABG Base Excess ABG Hemoglobin Oxyhemoglobin Sodium Potassium Chloride Carbon Dioxide BUN Creatinine Glucose POC Glucose 118 H 106 H 120 H Lactic Acid Calcium Magnesium Iron TIBC Ferritin AST ALT Lactate Dehydrogenase Troponin T C-Reactive Protein Total Protein Albumin Prealbumin Cholesterol LDL Cholesterol Direct HDL Cholesterol Urine WBC (Auto) Vancomycin Trough Coronavirus (PCR) Crossmatch 08/04/19 08/04/19 08/04/19 05:38 05:38 06:29 WBC 26.1 H RBC 2.77 L Hgb 7.5 L Hct 23.2 L MCV MCH 27 L MCHC RDW 19.2 H Plt Count 648 H Lymph % (Auto) Lyman % (Auto) Lymph # Lyman # Baso # Seg Neutrophils % Seg Neuts % (Manual) 90.5 H Lymphocytes % (Manual) 3.5 L Monocytes % (Manual) Basophils % (Manual) Nucleated RBC % Seg Neutrophils # Seg Neutrophils # Man 23.6 H Lymphocytes # (Manual) 0.9 L Monocytes # (Manual) 1.2 H Eosinophils # (Manual) Basophils # (Manual) PT INR D-Dimer ABG pH ABG pO2 ABG HCO3 ABG O2 Saturation ABG Base Excess ABG Hemoglobin Oxyhemoglobin Sodium 132 L Potassium 3.4 L D Chloride 92.7 L Carbon Dioxide 33 H BUN Creatinine 0.2 L Glucose POC Glucose 108 H Lactic Acid Calcium 8.1 L Magnesium Iron TIBC Ferritin AST ALT Lactate Dehydrogenase Troponin T C-Reactive Protein Total Protein Albumin Prealbumin Cholesterol LDL Cholesterol Direct HDL Cholesterol Urine WBC (Auto) Vancomycin Trough Coronavirus (PCR) Crossmatch 08/04/19 08/05/19 08/05/19 12:30 04:58 04:58 WBC 21.0 H RBC 2.63 L Hgb 7.2 L Hct 21.9 L MCV 83 L MCH 27 L MCHC RDW 18.9 H Plt Count 691 H Lymph % (Auto) Lyman % (Auto) Lymph # Lyman # Baso # Seg Neutrophils % Seg Neuts % (Manual) 86.0 H Lymphocytes % (Manual) 3.0 L Monocytes % (Manual) 10.0 H Basophils % (Manual) Nucleated RBC % Seg Neutrophils # Seg Neutrophils # Man 18.1 H Lymphocytes # (Manual) 0.6 L Monocytes # (Manual) 2.1 H Eosinophils # (Manual) Basophils # (Manual) PT INR D-Dimer ABG pH ABG pO2 ABG HCO3 ABG O2 Saturation ABG Base Excess ABG Hemoglobin Oxyhemoglobin Sodium 134 L Potassium 3.2 L Chloride 93.2 L Carbon Dioxide 34 H BUN 8 L Creatinine 0.3 L Glucose POC Glucose 138 H Lactic Acid Calcium 8.1 L Magnesium Iron TIBC Ferritin AST ALT Lactate Dehydrogenase Troponin T C-Reactive Protein Total Protein Albumin Prealbumin Cholesterol LDL Cholesterol Direct HDL Cholesterol Urine WBC (Auto) Vancomycin Trough Coronavirus (PCR) Crossmatch 08/05/19 08/05/19 08/05/19 11:53 17:57 23:58 WBC RBC Hgb Hct MCV MCH MCHC RDW Plt Count Lymph % (Auto) Lyman % (Auto) Lymph # Lyman # Baso # Seg Neutrophils % Seg Neuts % (Manual) Lymphocytes % (Manual) Monocytes % (Manual) Basophils % (Manual) Nucleated RBC % Seg Neutrophils # Seg Neutrophils # Man Lymphocytes # (Manual) Monocytes # (Manual) Eosinophils # (Manual) Basophils # (Manual) PT INR D-Dimer ABG pH ABG pO2 ABG HCO3 ABG O2 Saturation ABG Base Excess ABG Hemoglobin Oxyhemoglobin Sodium Potassium Chloride Carbon Dioxide BUN Creatinine Glucose POC Glucose 106 H 111 H 116 H Lactic Acid Calcium Magnesium Iron TIBC Ferritin AST ALT Lactate Dehydrogenase Troponin T C-Reactive Protein Total Protein Albumin Prealbumin Cholesterol LDL Cholesterol Direct HDL Cholesterol Urine WBC (Auto) Vancomycin Trough Coronavirus (PCR) Crossmatch 08/06/19 08/06/19 08/06/19 04:11 04:11 06:04 WBC 20.8 H RBC 2.80 L Hgb 7.6 L Hct 23.5 L MCV MCH 27 L MCHC RDW 19.0 H Plt Count 723 H Lymph % (Auto) Lyman % (Auto) Lymph # Lyman # Baso # Seg Neutrophils % Seg Neuts % (Manual) 88.0 H Lymphocytes % (Manual) 3.0 L Monocytes % (Manual) Basophils % (Manual) Nucleated RBC % Seg Neutrophils # Seg Neutrophils # Man 18.3 H Lymphocytes # (Manual) 0.6 L Monocytes # (Manual) Eosinophils # (Manual) Basophils # (Manual) 0.2 H PT INR D-Dimer ABG pH ABG pO2 ABG HCO3 ABG O2 Saturation ABG Base Excess ABG Hemoglobin Oxyhemoglobin Sodium Potassium 3.4 L Chloride 95.2 L Carbon Dioxide 32 H BUN Creatinine 0.3 L Glucose POC Glucose 108 H Lactic Acid Calcium 8.2 L Magnesium Iron TIBC Ferritin AST ALT Lactate Dehydrogenase Troponin T C-Reactive Protein Total Protein Albumin Prealbumin Cholesterol LDL Cholesterol Direct HDL Cholesterol Urine WBC (Auto) Vancomycin Trough Coronavirus (PCR) Crossmatch 08/06/19 08/06/19 08/07/19 12:23 17:13 00:21 WBC RBC Hgb Hct MCV MCH MCHC RDW Plt Count Lymph % (Auto) Lyman % (Auto) Lymph # Lyman # Baso # Seg Neutrophils % Seg Neuts % (Manual) Lymphocytes % (Manual) Monocytes % (Manual) Basophils % (Manual) Nucleated RBC % Seg Neutrophils # Seg Neutrophils # Man Lymphocytes # (Manual) Monocytes # (Manual) Eosinophils # (Manual) Basophils # (Manual) PT INR D-Dimer ABG pH ABG pO2 ABG HCO3 ABG O2 Saturation ABG Base Excess ABG Hemoglobin Oxyhemoglobin Sodium Potassium Chloride Carbon Dioxide BUN Creatinine Glucose POC Glucose 112 H 132 H 147 H Lactic Acid Calcium Magnesium Iron TIBC Ferritin AST ALT Lactate Dehydrogenase Troponin T C-Reactive Protein Total Protein Albumin Prealbumin Cholesterol LDL Cholesterol Direct HDL Cholesterol Urine WBC (Auto) Vancomycin Trough Coronavirus (PCR) Crossmatch 08/07/19 08/07/19 08/07/19 05:16 05:23 05:23 WBC 30.3 H RBC 2.69 L Hgb 7.1 L Hct 22.2 L MCV 83 L MCH 27 L MCHC RDW 19.1 H Plt Count 650 H Lymph % (Auto) Lyman % (Auto) Lymph # Lyman # Baso # Seg Neutrophils % Seg Neuts % (Manual) 88.0 H Lymphocytes % (Manual) 5.0 L Monocytes % (Manual) Basophils % (Manual) Nucleated RBC % Seg Neutrophils # Seg Neutrophils # Man 26.7 H Lymphocytes # (Manual) Monocytes # (Manual) 2.1 H Eosinophils # (Manual) Basophils # (Manual) PT INR D-Dimer ABG pH ABG pO2 ABG HCO3 ABG O2 Saturation ABG Base Excess ABG Hemoglobin Oxyhemoglobin Sodium 135 L Potassium 3.4 L Chloride 95.4 L Carbon Dioxide 32 H BUN Creatinine 0.4 L Glucose 120 H POC Glucose 120 H Lactic Acid Calcium 7.7 L Magnesium Iron TIBC Ferritin AST ALT Lactate Dehydrogenase Troponin T C-Reactive Protein Total Protein Albumin Prealbumin Cholesterol LDL Cholesterol Direct HDL Cholesterol Urine WBC (Auto) Vancomycin Trough Coronavirus (PCR) Crossmatch 08/07/19 08/07/19 08/07/19 10:24 10:24 11:10 WBC RBC Hgb Hct MCV MCH MCHC RDW Plt Count Lymph % (Auto) Lyman % (Auto) Lymph # Lyman # Baso # Seg Neutrophils % Seg Neuts % (Manual) Lymphocytes % (Manual) Monocytes % (Manual) Basophils % (Manual) Nucleated RBC % Seg Neutrophils # Seg Neutrophils # Man Lymphocytes # (Manual) Monocytes # (Manual) Eosinophils # (Manual) Basophils # (Manual) PT INR D-Dimer 1808.06 H ABG pH ABG pO2 73.3 L ABG HCO3 33.9 H ABG O2 Saturation ABG Base Excess 9.0 H ABG Hemoglobin 6.3 L Oxyhemoglobin 94.3 L Sodium Potassium Chloride Carbon Dioxide BUN Creatinine Glucose POC Glucose Lactic Acid Calcium Magnesium Iron TIBC Ferritin AST ALT Lactate Dehydrogenase Troponin T C-Reactive Protein 11.10 H Total Protein Albumin Prealbumin Cholesterol LDL Cholesterol Direct HDL Cholesterol Urine WBC (Auto) Vancomycin Trough Coronavirus (PCR) Crossmatch 08/07/19 08/08/19 08/08/19 12:01 04:41 04:41 WBC 22.1 H RBC 2.82 L Hgb 7.7 L Hct 23.6 L MCV MCH 27 L MCHC RDW 19.1 H Plt Count 722 H Lymph % (Auto) Lyman % (Auto) Lymph # Lyman # Baso # Seg Neutrophils % Seg Neuts % (Manual) 90.0 H Lymphocytes % (Manual) 3.0 L Monocytes % (Manual) Basophils % (Manual) Nucleated RBC % Seg Neutrophils # Seg Neutrophils # Man 19.9 H Lymphocytes # (Manual) 0.7 L Monocytes # (Manual) 1.3 H Eosinophils # (Manual) Basophils # (Manual) PT INR D-Dimer ABG pH ABG pO2 ABG HCO3 ABG O2 Saturation ABG Base Excess ABG Hemoglobin Oxyhemoglobin Sodium 136 L Potassium Chloride 97.8 L Carbon Dioxide BUN Creatinine 0.3 L Glucose 105 H POC Glucose 130 H Lactic Acid Calcium 7.8 L Magnesium Iron TIBC Ferritin AST ALT Lactate Dehydrogenase Troponin T C-Reactive Protein Total Protein Albumin Prealbumin Cholesterol LDL Cholesterol Direct HDL Cholesterol Urine WBC (Auto) Vancomycin Trough Coronavirus (PCR) Crossmatch 08/08/19 08/08/19 08/09/19 11:46 18:35 00:12 WBC RBC Hgb Hct MCV MCH MCHC RDW Plt Count Lymph % (Auto) Lyman % (Auto) Lymph # Lyman # Baso # Seg Neutrophils % Seg Neuts % (Manual) Lymphocytes % (Manual) Monocytes % (Manual) Basophils % (Manual) Nucleated RBC % Seg Neutrophils # Seg Neutrophils # Man Lymphocytes # (Manual) Monocytes # (Manual) Eosinophils # (Manual) Basophils # (Manual) PT INR D-Dimer ABG pH ABG pO2 ABG HCO3 ABG O2 Saturation ABG Base Excess ABG Hemoglobin Oxyhemoglobin Sodium Potassium Chloride Carbon Dioxide BUN Creatinine Glucose POC Glucose 117 H 117 H 117 H Lactic Acid Calcium Magnesium Iron TIBC Ferritin AST ALT Lactate Dehydrogenase Troponin T C-Reactive Protein Total Protein Albumin Prealbumin Cholesterol LDL Cholesterol Direct HDL Cholesterol Urine WBC (Auto) Vancomycin Trough Coronavirus (PCR) Crossmatch 08/09/19 08/09/19 08/09/19 05:33 12:22 17:48 WBC RBC Hgb Hct MCV MCH MCHC RDW Plt Count Lymph % (Auto) Lyman % (Auto) Lymph # Lyman # Baso # Seg Neutrophils % Seg Neuts % (Manual) Lymphocytes % (Manual) Monocytes % (Manual) Basophils % (Manual) Nucleated RBC % Seg Neutrophils # Seg Neutrophils # Man Lymphocytes # (Manual) Monocytes # (Manual) Eosinophils # (Manual) Basophils # (Manual) PT INR D-Dimer ABG pH ABG pO2 ABG HCO3 ABG O2 Saturation ABG Base Excess ABG Hemoglobin Oxyhemoglobin Sodium Potassium Chloride Carbon Dioxide BUN Creatinine Glucose POC Glucose 119 H 133 H 123 H Lactic Acid Calcium Magnesium Iron TIBC Ferritin AST ALT Lactate Dehydrogenase Troponin T C-Reactive Protein Total Protein Albumin Prealbumin Cholesterol LDL Cholesterol Direct HDL Cholesterol Urine WBC (Auto) Vancomycin Trough Coronavirus (PCR) Crossmatch 08/09/19 08/09/19 08/10/19 17:59 18:15 00:02 WBC RBC Hgb 6.7 L Hct 20.4 L MCV MCH MCHC RDW Plt Count Lymph % (Auto) Lyman % (Auto) Lymph # Lyman # Baso # Seg Neutrophils % Seg Neuts % (Manual) Lymphocytes % (Manual) Monocytes % (Manual) Basophils % (Manual) Nucleated RBC % Seg Neutrophils # Seg Neutrophils # Man Lymphocytes # (Manual) Monocytes # (Manual) Eosinophils # (Manual) Basophils # (Manual) PT INR D-Dimer ABG pH ABG pO2 ABG HCO3 ABG O2 Saturation ABG Base Excess ABG Hemoglobin Oxyhemoglobin Sodium Potassium Chloride Carbon Dioxide BUN Creatinine Glucose POC Glucose 124 H Lactic Acid Calcium Magnesium Iron TIBC Ferritin AST ALT Lactate Dehydrogenase Troponin T C-Reactive Protein Total Protein Albumin Prealbumin Cholesterol LDL Cholesterol Direct HDL Cholesterol Urine WBC (Auto) Vancomycin Trough Coronavirus (PCR) Crossmatch See Detail 08/10/19 08/10/19 08/10/19 05:47 08:00 08:00 WBC 16.9 H RBC 2.94 L Hgb 8.2 L Hct 24.9 L MCV MCH MCHC RDW 17.0 H Plt Count 661 H Lymph % (Auto) Lyman % (Auto) Lymph # Lyman # Baso # Seg Neutrophils % Seg Neuts % (Manual) Lymphocytes % (Manual) Monocytes % (Manual) Basophils % (Manual) Nucleated RBC % Seg Neutrophils # Seg Neutrophils # Man Lymphocytes # (Manual) Monocytes # (Manual) Eosinophils # (Manual) Basophils # (Manual) PT INR D-Dimer ABG pH ABG pO2 ABG HCO3 ABG O2 Saturation ABG Base Excess ABG Hemoglobin Oxyhemoglobin Sodium Potassium Chloride Carbon Dioxide BUN Creatinine 0.3 L Glucose 116 H POC Glucose 148 H Lactic Acid Calcium 7.7 L Magnesium Iron TIBC Ferritin AST ALT Lactate Dehydrogenase Troponin T C-Reactive Protein Total Protein Albumin Prealbumin Cholesterol LDL Cholesterol Direct HDL Cholesterol Urine WBC (Auto) Vancomycin Trough Coronavirus (PCR) Crossmatch 08/10/19 08/10/19 08/10/19 12:38 18:06 23:56 WBC RBC Hgb Hct MCV MCH MCHC RDW Plt Count Lymph % (Auto) Lyman % (Auto) Lymph # Lyman # Baso # Seg Neutrophils % Seg Neuts % (Manual) Lymphocytes % (Manual) Monocytes % (Manual) Basophils % (Manual) Nucleated RBC % Seg Neutrophils # Seg Neutrophils # Man Lymphocytes # (Manual) Monocytes # (Manual) Eosinophils # (Manual) Basophils # (Manual) PT INR D-Dimer ABG pH ABG pO2 ABG HCO3 ABG O2 Saturation ABG Base Excess ABG Hemoglobin Oxyhemoglobin Sodium Potassium Chloride Carbon Dioxide BUN Creatinine Glucose POC Glucose 113 H 126 H 115 H Lactic Acid Calcium Magnesium Iron TIBC Ferritin AST ALT Lactate Dehydrogenase Troponin T C-Reactive Protein Total Protein Albumin Prealbumin Cholesterol LDL Cholesterol Direct HDL Cholesterol Urine WBC (Auto) Vancomycin Trough Coronavirus (PCR) Crossmatch 08/10/19 08/11/19 08/12/19 Unknown 18:10 03:30 WBC 14.4 H RBC 2.58 L Hgb 7.4 L Hct 22.1 L MCV MCH MCHC RDW 17.4 H Plt Count 786 H Lymph % (Auto) Lyman % (Auto) Lymph # Lyman # Baso # Seg Neutrophils % Seg Neuts % (Manual) Lymphocytes % (Manual) Monocytes % (Manual) Basophils % (Manual) Nucleated RBC % Seg Neutrophils # Seg Neutrophils # Man Lymphocytes # (Manual) Monocytes # (Manual) Eosinophils # (Manual) Basophils # (Manual) PT INR D-Dimer ABG pH ABG pO2 ABG HCO3 ABG O2 Saturation ABG Base Excess ABG Hemoglobin Oxyhemoglobin Sodium Potassium Chloride Carbon Dioxide BUN Creatinine Glucose POC Glucose 106 H Lactic Acid Calcium Magnesium Iron TIBC Ferritin AST ALT Lactate Dehydrogenase Troponin T C-Reactive Protein Total Protein Albumin Prealbumin Cholesterol LDL Cholesterol Direct HDL Cholesterol Urine WBC (Auto) Vancomycin Trough Coronavirus (PCR) Positive A Crossmatch 08/12/19 08/12/19 08/13/19 03:30 12:08 05:25 WBC RBC Hgb Hct MCV MCH MCHC RDW Plt Count Lymph % (Auto) Lyman % (Auto) Lymph # Lyman # Baso # Seg Neutrophils % Seg Neuts % (Manual) Lymphocytes % (Manual) Monocytes % (Manual) Basophils % (Manual) Nucleated RBC % Seg Neutrophils # Seg Neutrophils # Man Lymphocytes # (Manual) Monocytes # (Manual) Eosinophils # (Manual) Basophils # (Manual) PT INR D-Dimer ABG pH ABG pO2 ABG HCO3 ABG O2 Saturation ABG Base Excess ABG Hemoglobin Oxyhemoglobin Sodium Potassium Chloride Carbon Dioxide BUN 7 L Creatinine 0.3 L Glucose 117 H POC Glucose 112 H 126 H Lactic Acid Calcium 7.8 L Magnesium Iron TIBC Ferritin AST ALT Lactate Dehydrogenase Troponin T C-Reactive Protein Total Protein Albumin Prealbumin Cholesterol LDL Cholesterol Direct HDL Cholesterol Urine WBC (Auto) Vancomycin Trough Coronavirus (PCR) Crossmatch 08/13/19 08/13/19 08/13/19 11:36 17:10 19:06 WBC RBC Hgb Hct MCV MCH MCHC RDW Plt Count Lymph % (Auto) Lyman % (Auto) Lymph # Lyman # Baso # Seg Neutrophils % Seg Neuts % (Manual) Lymphocytes % (Manual) Monocytes % (Manual) Basophils % (Manual) Nucleated RBC % Seg Neutrophils # Seg Neutrophils # Man Lymphocytes # (Manual) Monocytes # (Manual) Eosinophils # (Manual) Basophils # (Manual) PT INR D-Dimer ABG pH ABG pO2 105.0 H ABG HCO3 28.5 H ABG O2 Saturation ABG Base Excess 3.5 H ABG Hemoglobin 7.8 L Oxyhemoglobin Sodium Potassium Chloride Carbon Dioxide BUN Creatinine Glucose POC Glucose 143 H 107 H Lactic Acid Calcium Magnesium Iron TIBC Ferritin AST ALT Lactate Dehydrogenase Troponin T C-Reactive Protein Total Protein Albumin Prealbumin Cholesterol LDL Cholesterol Direct HDL Cholesterol Urine WBC (Auto) Vancomycin Trough Coronavirus (PCR) Crossmatch 08/13/19 08/14/19 08/14/19 23:23 05:00 05:00 WBC 14.3 H RBC 2.76 L Hgb 7.8 L Hct 23.9 L MCV MCH MCHC RDW 18.7 H Plt Count 896 H Lymph % (Auto) Lyman % (Auto) Lymph # Lyman # Baso # Seg Neutrophils % Seg Neuts % (Manual) Lymphocytes % (Manual) Monocytes % (Manual) Basophils % (Manual) Nucleated RBC % Seg Neutrophils # Seg Neutrophils # Man Lymphocytes # (Manual) Monocytes # (Manual) Eosinophils # (Manual) Basophils # (Manual) PT INR D-Dimer ABG pH ABG pO2 ABG HCO3 ABG O2 Saturation ABG Base Excess ABG Hemoglobin Oxyhemoglobin Sodium Potassium Chloride Carbon Dioxide BUN 6 L Creatinine 0.3 L Glucose POC Glucose 125 H Lactic Acid Calcium 8.2 L Magnesium Iron TIBC Ferritin AST ALT Lactate Dehydrogenase Troponin T C-Reactive Protein Total Protein Albumin Prealbumin Cholesterol LDL Cholesterol Direct HDL Cholesterol Urine WBC (Auto) Vancomycin Trough Coronavirus (PCR) Crossmatch 08/14/19 08/15/19 08/15/19 05:07 00:25 05:42 WBC RBC Hgb Hct MCV MCH MCHC RDW Plt Count Lymph % (Auto) Lyman % (Auto) Lymph # Lyman # Baso # Seg Neutrophils % Seg Neuts % (Manual) Lymphocytes % (Manual) Monocytes % (Manual) Basophils % (Manual) Nucleated RBC % Seg Neutrophils # Seg Neutrophils # Man Lymphocytes # (Manual) Monocytes # (Manual) Eosinophils # (Manual) Basophils # (Manual) PT INR D-Dimer ABG pH ABG pO2 ABG HCO3 ABG O2 Saturation ABG Base Excess ABG Hemoglobin Oxyhemoglobin Sodium Potassium Chloride Carbon Dioxide BUN Creatinine Glucose POC Glucose 128 H 117 H 115 H Lactic Acid Calcium Magnesium Iron TIBC Ferritin AST ALT Lactate Dehydrogenase Troponin T C-Reactive Protein Total Protein Albumin Prealbumin Cholesterol LDL Cholesterol Direct HDL Cholesterol Urine WBC (Auto) Vancomycin Trough Coronavirus (PCR) Crossmatch 08/15/19 08/15/19 08/15/19 06:10 06:10 06:10 WBC 11.6 H RBC 2.68 L Hgb 7.7 L Hct 23.3 L MCV MCH MCHC RDW 19.2 H Plt Count 885 H Lymph % (Auto) Lyman % (Auto) Lymph # Lyman # Baso # Seg Neutrophils % Seg Neuts % (Manual) Lymphocytes % (Manual) Monocytes % (Manual) Basophils % (Manual) Nucleated RBC % Seg Neutrophils # Seg Neutrophils # Man Lymphocytes # (Manual) Monocytes # (Manual) Eosinophils # (Manual) Basophils # (Manual) PT INR D-Dimer ABG pH ABG pO2 ABG HCO3 ABG O2 Saturation ABG Base Excess ABG Hemoglobin Oxyhemoglobin Sodium Potassium Chloride Carbon Dioxide BUN 6 L Creatinine 0.3 L Glucose 107 H POC Glucose Lactic Acid Calcium 8.2 L Magnesium 1.50 L Iron TIBC Ferritin AST ALT Lactate Dehydrogenase Troponin T C-Reactive Protein Total Protein Albumin Prealbumin Cholesterol LDL Cholesterol Direct HDL Cholesterol Urine WBC (Auto) Vancomycin Trough Coronavirus (PCR) Crossmatch 08/15/19 08/16/19 08/16/19 12:12 00:05 05:00 WBC 13.3 H RBC 2.87 L Hgb 8.1 L Hct 24.9 L MCV MCH MCHC RDW 18.7 H Plt Count 962 H Lymph % (Auto) Lyman % (Auto) Lymph # Lyman # Baso # Seg Neutrophils % Seg Neuts % (Manual) Lymphocytes % (Manual) Monocytes % (Manual) Basophils % (Manual) Nucleated RBC % Seg Neutrophils # Seg Neutrophils # Man Lymphocytes # (Manual) Monocytes # (Manual) Eosinophils # (Manual) Basophils # (Manual) PT INR D-Dimer ABG pH ABG pO2 ABG HCO3 ABG O2 Saturation ABG Base Excess ABG Hemoglobin Oxyhemoglobin Sodium Potassium Chloride Carbon Dioxide BUN Creatinine Glucose POC Glucose 112 H 111 H Lactic Acid Calcium Magnesium Iron TIBC Ferritin AST ALT Lactate Dehydrogenase Troponin T C-Reactive Protein Total Protein Albumin Prealbumin Cholesterol LDL Cholesterol Direct HDL Cholesterol Urine WBC (Auto) Vancomycin Trough Coronavirus (PCR) Crossmatch 08/16/19 08/16/19 08/16/19 05:00 05:00 23:35 WBC RBC Hgb Hct MCV MCH MCHC RDW Plt Count Lymph % (Auto) Lyman % (Auto) Lymph # Lyman # Baso # Seg Neutrophils % Seg Neuts % (Manual) Lymphocytes % (Manual) Monocytes % (Manual) Basophils % (Manual) Nucleated RBC % Seg Neutrophils # Seg Neutrophils # Man Lymphocytes # (Manual) Monocytes # (Manual) Eosinophils # (Manual) Basophils # (Manual) PT INR D-Dimer ABG pH ABG pO2 ABG HCO3 ABG O2 Saturation ABG Base Excess ABG Hemoglobin Oxyhemoglobin Sodium 135 L Potassium Chloride Carbon Dioxide BUN 6 L Creatinine 0.3 L Glucose POC Glucose 108 H Lactic Acid Calcium 8.2 L Magnesium Iron TIBC Ferritin AST ALT Lactate Dehydrogenase Troponin T C-Reactive Protein 2.70 H Total Protein Albumin 2.1 L Prealbumin Cholesterol LDL Cholesterol Direct HDL Cholesterol Urine WBC (Auto) Vancomycin Trough Coronavirus (PCR) Crossmatch 08/17/19 08/17/19 08/17/19 05:15 20:20 23:42 WBC RBC Hgb Hct MCV MCH MCHC RDW Plt Count Lymph % (Auto) Lyman % (Auto) Lymph # Lyman # Baso # Seg Neutrophils % Seg Neuts % (Manual) Lymphocytes % (Manual) Monocytes % (Manual) Basophils % (Manual) Nucleated RBC % Seg Neutrophils # Seg Neutrophils # Man Lymphocytes # (Manual) Monocytes # (Manual) Eosinophils # (Manual) Basophils # (Manual) PT INR D-Dimer ABG pH ABG pO2 ABG HCO3 27.8 H ABG O2 Saturation ABG Base Excess ABG Hemoglobin 11.4 L Oxyhemoglobin 94.6 L Sodium Potassium Chloride Carbon Dioxide BUN Creatinine Glucose POC Glucose 138 H 132 H Lactic Acid Calcium Magnesium Iron TIBC Ferritin AST ALT Lactate Dehydrogenase Troponin T C-Reactive Protein Total Protein Albumin Prealbumin Cholesterol LDL Cholesterol Direct HDL Cholesterol Urine WBC (Auto) Vancomycin Trough Coronavirus (PCR) Crossmatch 08/18/19 08/18/19 08/18/19 06:00 06:00 12:02 WBC 19.7 H RBC 3.30 L Hgb 9.3 L Hct 28.5 L MCV MCH MCHC RDW 18.9 H Plt Count 923 H Lymph % (Auto) Lyman % (Auto) Lymph # Lyman # Baso # Seg Neutrophils % Seg Neuts % (Manual) Lymphocytes % (Manual) Monocytes % (Manual) Basophils % (Manual) Nucleated RBC % Seg Neutrophils # Seg Neutrophils # Man Lymphocytes # (Manual) Monocytes # (Manual) Eosinophils # (Manual) Basophils # (Manual) PT INR D-Dimer ABG pH ABG pO2 ABG HCO3 ABG O2 Saturation ABG Base Excess ABG Hemoglobin Oxyhemoglobin Sodium 136 L Potassium Chloride Carbon Dioxide BUN Creatinine 0.4 L Glucose 71 L POC Glucose 123 H Lactic Acid Calcium Magnesium Iron TIBC Ferritin AST ALT Lactate Dehydrogenase Troponin T C-Reactive Protein Total Protein Albumin Prealbumin Cholesterol LDL Cholesterol Direct HDL Cholesterol Urine WBC (Auto) Vancomycin Trough Coronavirus (PCR) Crossmatch 08/18/19 08/18/19 08/19/19 18:23 23:16 04:57 WBC RBC Hgb Hct MCV MCH MCHC RDW Plt Count Lymph % (Auto) Lyman % (Auto) Lymph # Lyman # Baso # Seg Neutrophils % Seg Neuts % (Manual) Lymphocytes % (Manual) Monocytes % (Manual) Basophils % (Manual) Nucleated RBC % Seg Neutrophils # Seg Neutrophils # Man Lymphocytes # (Manual) Monocytes # (Manual) Eosinophils # (Manual) Basophils # (Manual) PT INR D-Dimer ABG pH ABG pO2 ABG HCO3 ABG O2 Saturation ABG Base Excess ABG Hemoglobin Oxyhemoglobin Sodium Potassium Chloride Carbon Dioxide BUN Creatinine Glucose POC Glucose 140 H 159 H 134 H Lactic Acid Calcium Magnesium Iron TIBC Ferritin AST ALT Lactate Dehydrogenase Troponin T C-Reactive Protein Total Protein Albumin Prealbumin Cholesterol LDL Cholesterol Direct HDL Cholesterol Urine WBC (Auto) Vancomycin Trough Coronavirus (PCR) Crossmatch 08/19/19 08/19/19 08/19/19 07:44 08:17 18:15 WBC 30.5 H RBC 2.87 L Hgb 7.9 L Hct 24.5 L MCV MCH MCHC RDW 18.8 H Plt Count 772 H Lymph % (Auto) Lyman % (Auto) Lymph # Lyman # Baso # Seg Neutrophils % Seg Neuts % (Manual) 89.0 H Lymphocytes % (Manual) 4.0 L Monocytes % (Manual) Basophils % (Manual) 2.0 H Nucleated RBC % Seg Neutrophils # Seg Neutrophils # Man 27.1 H Lymphocytes # (Manual) Monocytes # (Manual) 0.9 H Eosinophils # (Manual) 0.6 H Basophils # (Manual) 0.6 H PT INR D-Dimer ABG pH ABG pO2 ABG HCO3 ABG O2 Saturation ABG Base Excess ABG Hemoglobin Oxyhemoglobin Sodium 136 L Potassium Chloride Carbon Dioxide BUN Creatinine 0.3 L Glucose POC Glucose 106 H Lactic Acid Calcium 8.2 L Magnesium Iron TIBC Ferritin AST ALT Lactate Dehydrogenase Troponin T C-Reactive Protein Total Protein Albumin Prealbumin Cholesterol LDL Cholesterol Direct HDL Cholesterol Urine WBC (Auto) Vancomycin Trough Coronavirus (PCR) Crossmatch 08/19/19 08/20/19 08/20/19 23:46 06:20 18:34 WBC RBC Hgb Hct MCV MCH MCHC RDW Plt Count Lymph % (Auto) Lyman % (Auto) Lymph # Lyman # Baso # Seg Neutrophils % Seg Neuts % (Manual) Lymphocytes % (Manual) Monocytes % (Manual) Basophils % (Manual) Nucleated RBC % Seg Neutrophils # Seg Neutrophils # Man Lymphocytes # (Manual) Monocytes # (Manual) Eosinophils # (Manual) Basophils # (Manual) PT INR D-Dimer ABG pH ABG pO2 ABG HCO3 ABG O2 Saturation ABG Base Excess ABG Hemoglobin Oxyhemoglobin Sodium Potassium Chloride Carbon Dioxide BUN Creatinine Glucose POC Glucose 144 H 115 H 125 H Lactic Acid Calcium Magnesium Iron TIBC Ferritin AST ALT Lactate Dehydrogenase Troponin T C-Reactive Protein Total Protein Albumin Prealbumin Cholesterol LDL Cholesterol Direct HDL Cholesterol Urine WBC (Auto) Vancomycin Trough Coronavirus (PCR) Crossmatch 08/20/19 08/20/19 08/21/19 Unknown Unknown 11:56 WBC 18.7 H RBC 2.70 L Hgb 7.6 L Hct 23.1 L MCV MCH MCHC RDW 18.9 H Plt Count 690 H Lymph % (Auto) Lyman % (Auto) Lymph # Lyman # Baso # Seg Neutrophils % Seg Neuts % (Manual) Lymphocytes % (Manual) Monocytes % (Manual) Basophils % (Manual) Nucleated RBC % Seg Neutrophils # Seg Neutrophils # Man Lymphocytes # (Manual) Monocytes # (Manual) Eosinophils # (Manual) Basophils # (Manual) PT INR D-Dimer ABG pH ABG pO2 ABG HCO3 ABG O2 Saturation ABG Base Excess ABG Hemoglobin Oxyhemoglobin Sodium 134 L Potassium Chloride 97.9 L Carbon Dioxide BUN Creatinine 0.3 L Glucose 115 H POC Glucose 116 H Lactic Acid Calcium 8.2 L Magnesium Iron TIBC Ferritin AST ALT Lactate Dehydrogenase Troponin T C-Reactive Protein Total Protein Albumin Prealbumin Cholesterol LDL Cholesterol Direct HDL Cholesterol Urine WBC (Auto) Vancomycin Trough Coronavirus (PCR) Crossmatch 08/21/19 08/22/19 08/22/19 18:14 00:31 05:53 WBC RBC Hgb Hct MCV MCH MCHC RDW Plt Count Lymph % (Auto) Lyman % (Auto) Lymph # Lyman # Baso # Seg Neutrophils % Seg Neuts % (Manual) Lymphocytes % (Manual) Monocytes % (Manual) Basophils % (Manual) Nucleated RBC % Seg Neutrophils # Seg Neutrophils # Man Lymphocytes # (Manual) Monocytes # (Manual) Eosinophils # (Manual) Basophils # (Manual) PT INR D-Dimer ABG pH ABG pO2 ABG HCO3 ABG O2 Saturation ABG Base Excess ABG Hemoglobin Oxyhemoglobin Sodium Potassium Chloride Carbon Dioxide BUN Creatinine Glucose POC Glucose 113 H 106 H 109 H Lactic Acid Calcium Magnesium Iron TIBC Ferritin AST ALT Lactate Dehydrogenase Troponin T C-Reactive Protein Total Protein Albumin Prealbumin Cholesterol LDL Cholesterol Direct HDL Cholesterol Urine WBC (Auto) Vancomycin Trough Coronavirus (PCR) Crossmatch 08/22/19 08/23/19 08/23/19 18:35 00:18 06:00 WBC 12.3 H RBC 2.92 L Hgb 8.0 L Hct 24.6 L MCV MCH MCHC RDW 18.5 H Plt Count 661 H Lymph % (Auto) 11.7 L Lyman % (Auto) 9.2 H Lymph # Lyman # 1.1 H Baso # Seg Neutrophils % 75.6 H Seg Neuts % (Manual) Lymphocytes % (Manual) Monocytes % (Manual) Basophils % (Manual) Nucleated RBC % Seg Neutrophils # 9.3 H Seg Neutrophils # Man Lymphocytes # (Manual) Monocytes # (Manual) Eosinophils # (Manual) Basophils # (Manual) PT INR D-Dimer ABG pH ABG pO2 ABG HCO3 ABG O2 Saturation ABG Base Excess ABG Hemoglobin Oxyhemoglobin Sodium Potassium Chloride Carbon Dioxide BUN Creatinine Glucose POC Glucose 130 H 124 H Lactic Acid Calcium Magnesium Iron TIBC Ferritin AST ALT Lactate Dehydrogenase Troponin T C-Reactive Protein Total Protein Albumin Prealbumin Cholesterol LDL Cholesterol Direct HDL Cholesterol Urine WBC (Auto) Vancomycin Trough Coronavirus (PCR) Crossmatch 08/23/19 08/23/19 08/24/19 06:09 17:46 00:04 WBC RBC Hgb Hct MCV MCH MCHC RDW Plt Count Lymph % (Auto) Lyman % (Auto) Lymph # Lyman # Baso # Seg Neutrophils % Seg Neuts % (Manual) Lymphocytes % (Manual) Monocytes % (Manual) Basophils % (Manual) Nucleated RBC % Seg Neutrophils # Seg Neutrophils # Man Lymphocytes # (Manual) Monocytes # (Manual) Eosinophils # (Manual) Basophils # (Manual) PT INR D-Dimer ABG pH ABG pO2 ABG HCO3 ABG O2 Saturation ABG Base Excess ABG Hemoglobin Oxyhemoglobin Sodium Potassium Chloride Carbon Dioxide BUN Creatinine Glucose POC Glucose 117 H 125 H 113 H Lactic Acid Calcium Magnesium Iron TIBC Ferritin AST ALT Lactate Dehydrogenase Troponin T C-Reactive Protein Total Protein Albumin Prealbumin Cholesterol LDL Cholesterol Direct HDL Cholesterol Urine WBC (Auto) Vancomycin Trough Coronavirus (PCR) Crossmatch 08/24/19 08/24/19 08/24/19 05:34 12:28 17:32 WBC RBC Hgb Hct MCV MCH MCHC RDW Plt Count Lymph % (Auto) Lyman % (Auto) Lymph # Lyman # Baso # Seg Neutrophils % Seg Neuts % (Manual) Lymphocytes % (Manual) Monocytes % (Manual) Basophils % (Manual) Nucleated RBC % Seg Neutrophils # Seg Neutrophils # Man Lymphocytes # (Manual) Monocytes # (Manual) Eosinophils # (Manual) Basophils # (Manual) PT INR D-Dimer ABG pH ABG pO2 ABG HCO3 ABG O2 Saturation ABG Base Excess ABG Hemoglobin Oxyhemoglobin Sodium Potassium Chloride Carbon Dioxide BUN Creatinine Glucose POC Glucose 128 H 127 H 116 H Lactic Acid Calcium Magnesium Iron TIBC Ferritin AST ALT Lactate Dehydrogenase Troponin T C-Reactive Protein Total Protein Albumin Prealbumin Cholesterol LDL Cholesterol Direct HDL Cholesterol Urine WBC (Auto) Vancomycin Trough Coronavirus (PCR) Crossmatch 08/24/19 08/25/19 08/25/19 23:41 05:37 12:30 WBC RBC Hgb Hct MCV MCH MCHC RDW Plt Count Lymph % (Auto) Lyman % (Auto) Lymph # Lyman # Baso # Seg Neutrophils % Seg Neuts % (Manual) Lymphocytes % (Manual) Monocytes % (Manual) Basophils % (Manual) Nucleated RBC % Seg Neutrophils # Seg Neutrophils # Man Lymphocytes # (Manual) Monocytes # (Manual) Eosinophils # (Manual) Basophils # (Manual) PT INR D-Dimer ABG pH ABG pO2 ABG HCO3 ABG O2 Saturation ABG Base Excess ABG Hemoglobin Oxyhemoglobin Sodium Potassium Chloride Carbon Dioxide BUN Creatinine Glucose POC Glucose 107 H 129 H 110 H Lactic Acid Calcium Magnesium Iron TIBC Ferritin AST ALT Lactate Dehydrogenase Troponin T C-Reactive Protein Total Protein Albumin Prealbumin Cholesterol LDL Cholesterol Direct HDL Cholesterol Urine WBC (Auto) Vancomycin Trough Coronavirus (PCR) Crossmatch 08/25/19 08/25/19 08/26/19 17:49 23:55 05:35 WBC RBC Hgb Hct MCV MCH MCHC RDW Plt Count Lymph % (Auto) Lyman % (Auto) Lymph # Lyman # Baso # Seg Neutrophils % Seg Neuts % (Manual) Lymphocytes % (Manual) Monocytes % (Manual) Basophils % (Manual) Nucleated RBC % Seg Neutrophils # Seg Neutrophils # Man Lymphocytes # (Manual) Monocytes # (Manual) Eosinophils # (Manual) Basophils # (Manual) PT INR D-Dimer ABG pH ABG pO2 ABG HCO3 ABG O2 Saturation ABG Base Excess ABG Hemoglobin Oxyhemoglobin Sodium Potassium Chloride Carbon Dioxide BUN Creatinine Glucose POC Glucose 107 H 137 H 117 H Lactic Acid Calcium Magnesium Iron TIBC Ferritin AST ALT Lactate Dehydrogenase Troponin T C-Reactive Protein Total Protein Albumin Prealbumin Cholesterol LDL Cholesterol Direct HDL Cholesterol Urine WBC (Auto) Vancomycin Trough Coronavirus (PCR) Crossmatch 08/27/19 08/27/19 08/27/19 00:59 06:01 07:21 WBC 11.6 H RBC 3.15 L Hgb 8.3 L Hct 26.1 L MCV 83 L MCH 26 L MCHC RDW 18.6 H Plt Count 743 H Lymph % (Auto) 11.8 L Lyman % (Auto) 8.8 H Lymph # Lyman # 1.0 H Baso # Seg Neutrophils % 75.3 H Seg Neuts % (Manual) Lymphocytes % (Manual) Monocytes % (Manual) Basophils % (Manual) Nucleated RBC % Seg Neutrophils # 8.7 H Seg Neutrophils # Man Lymphocytes # (Manual) Monocytes # (Manual) Eosinophils # (Manual) Basophils # (Manual) PT INR D-Dimer ABG pH ABG pO2 ABG HCO3 ABG O2 Saturation ABG Base Excess ABG Hemoglobin Oxyhemoglobin Sodium Potassium Chloride Carbon Dioxide BUN Creatinine Glucose POC Glucose 126 H 134 H Lactic Acid Calcium Magnesium Iron TIBC Ferritin AST ALT Lactate Dehydrogenase Troponin T C-Reactive Protein Total Protein Albumin Prealbumin Cholesterol LDL Cholesterol Direct HDL Cholesterol Urine WBC (Auto) Vancomycin Trough Coronavirus (PCR) Crossmatch 08/27/19 08/27/19 08/28/19 07:21 18:05 00:37 WBC RBC Hgb Hct MCV MCH MCHC RDW Plt Count Lymph % (Auto) Lyman % (Auto) Lymph # Lyman # Baso # Seg Neutrophils % Seg Neuts % (Manual) Lymphocytes % (Manual) Monocytes % (Manual) Basophils % (Manual) Nucleated RBC % Seg Neutrophils # Seg Neutrophils # Man Lymphocytes # (Manual) Monocytes # (Manual) Eosinophils # (Manual) Basophils # (Manual) PT INR D-Dimer ABG pH ABG pO2 ABG HCO3 ABG O2 Saturation ABG Base Excess ABG Hemoglobin Oxyhemoglobin Sodium 132 L Potassium 5.1 H Chloride 97.6 L Carbon Dioxide BUN Creatinine 0.3 L Glucose 119 H POC Glucose 127 H 106 H Lactic Acid Calcium Magnesium Iron TIBC Ferritin AST ALT Lactate Dehydrogenase Troponin T C-Reactive Protein Total Protein Albumin Prealbumin Cholesterol LDL Cholesterol Direct HDL Cholesterol Urine WBC (Auto) Vancomycin Trough Coronavirus (PCR) Crossmatch 08/28/19 08/29/19 08/29/19 18:14 00:01 12:16 WBC RBC Hgb Hct MCV MCH MCHC RDW Plt Count Lymph % (Auto) Lyman % (Auto) Lymph # Lyman # Baso # Seg Neutrophils % Seg Neuts % (Manual) Lymphocytes % (Manual) Monocytes % (Manual) Basophils % (Manual) Nucleated RBC % Seg Neutrophils # Seg Neutrophils # Man Lymphocytes # (Manual) Monocytes # (Manual) Eosinophils # (Manual) Basophils # (Manual) PT INR D-Dimer ABG pH ABG pO2 ABG HCO3 ABG O2 Saturation ABG Base Excess ABG Hemoglobin Oxyhemoglobin Sodium Potassium Chloride Carbon Dioxide BUN Creatinine Glucose POC Glucose 115 H 146 H 107 H Lactic Acid Calcium Magnesium Iron TIBC Ferritin AST ALT Lactate Dehydrogenase Troponin T C-Reactive Protein Total Protein Albumin Prealbumin Cholesterol LDL Cholesterol Direct HDL Cholesterol Urine WBC (Auto) Vancomycin Trough Coronavirus (PCR) Crossmatch 08/30/19 08/30/19 08/30/19 05:10 05:10 05:25 WBC 12.3 H RBC 3.01 L Hgb 8.0 L Hct 25.1 L MCV MCH 27 L MCHC RDW 19.3 H Plt Count 709 H Lymph % (Auto) 8.9 L Lyman % (Auto) Lymph # 1.1 L Lyman # Baso # Seg Neutrophils % 82.7 H Seg Neuts % (Manual) Lymphocytes % (Manual) Monocytes % (Manual) Basophils % (Manual) Nucleated RBC % Seg Neutrophils # 10.1 H Seg Neutrophils # Man Lymphocytes # (Manual) Monocytes # (Manual) Eosinophils # (Manual) Basophils # (Manual) PT INR D-Dimer ABG pH ABG pO2 ABG HCO3 ABG O2 Saturation ABG Base Excess ABG Hemoglobin Oxyhemoglobin Sodium 133 L Potassium Chloride 97.8 L Carbon Dioxide BUN Creatinine 0.3 L Glucose POC Glucose 106 H Lactic Acid Calcium Magnesium 1.50 L Iron TIBC Ferritin AST ALT Lactate Dehydrogenase Troponin T C-Reactive Protein Total Protein Albumin 2.4 L Prealbumin Cholesterol LDL Cholesterol Direct HDL Cholesterol Urine WBC (Auto) Vancomycin Trough Coronavirus (PCR) Crossmatch 08/30/19 08/30/19 08/31/19 18:26 23:48 05:32 WBC RBC Hgb Hct MCV MCH MCHC RDW Plt Count Lymph % (Auto) Lyman % (Auto) Lymph # Lyman # Baso # Seg Neutrophils % Seg Neuts % (Manual) Lymphocytes % (Manual) Monocytes % (Manual) Basophils % (Manual) Nucleated RBC % Seg Neutrophils # Seg Neutrophils # Man Lymphocytes # (Manual) Monocytes # (Manual) Eosinophils # (Manual) Basophils # (Manual) PT INR D-Dimer ABG pH ABG pO2 ABG HCO3 ABG O2 Saturation ABG Base Excess ABG Hemoglobin Oxyhemoglobin Sodium Potassium Chloride Carbon Dioxide BUN Creatinine Glucose POC Glucose 139 H 113 H 115 H Lactic Acid Calcium Magnesium Iron TIBC Ferritin AST ALT Lactate Dehydrogenase Troponin T C-Reactive Protein Total Protein Albumin Prealbumin Cholesterol LDL Cholesterol Direct HDL Cholesterol Urine WBC (Auto) Vancomycin Trough Coronavirus (PCR) Crossmatch 09/01/19 09/01/19 09/01/19 04:33 11:43 14:50 WBC RBC Hgb Hct MCV MCH MCHC RDW Plt Count Lymph % (Auto) Lyman % (Auto) Lymph # Lyman # Baso # Seg Neutrophils % Seg Neuts % (Manual) Lymphocytes % (Manual) Monocytes % (Manual) Basophils % (Manual) Nucleated RBC % Seg Neutrophils # Seg Neutrophils # Man Lymphocytes # (Manual) Monocytes # (Manual) Eosinophils # (Manual) Basophils # (Manual) PT INR D-Dimer ABG pH 7.485 H ABG pO2 483.8 H ABG HCO3 ABG O2 Saturation 99.6 H ABG Base Excess ABG Hemoglobin 8.0 L Oxyhemoglobin Sodium Potassium Chloride Carbon Dioxide BUN Creatinine Glucose POC Glucose 127 H Lactic Acid Calcium Magnesium 1.30 L Iron TIBC Ferritin AST ALT Lactate Dehydrogenase Troponin T C-Reactive Protein Total Protein Albumin Prealbumin Cholesterol LDL Cholesterol Direct HDL Cholesterol Urine WBC (Auto) Vancomycin Trough Coronavirus (PCR) Crossmatch 09/01/19 09/01/19 09/01/19 14:50 17:00 17:28 WBC RBC Hgb Hct MCV MCH MCHC RDW Plt Count Lymph % (Auto) Lyman % (Auto) Lymph # Lyman # Baso # Seg Neutrophils % Seg Neuts % (Manual) Lymphocytes % (Manual) Monocytes % (Manual) Basophils % (Manual) Nucleated RBC % Seg Neutrophils # Seg Neutrophils # Man Lymphocytes # (Manual) Monocytes # (Manual) Eosinophils # (Manual) Basophils # (Manual) PT INR D-Dimer ABG pH ABG pO2 116.0 H ABG HCO3 ABG O2 Saturation ABG Base Excess ABG Hemoglobin 12.2 L Oxyhemoglobin Sodium 133 L Potassium Chloride Carbon Dioxide BUN Creatinine 0.3 L Glucose 117 H POC Glucose 135 H Lactic Acid Calcium Magnesium Iron TIBC Ferritin AST ALT Lactate Dehydrogenase Troponin T C-Reactive Protein Total Protein Albumin Prealbumin Cholesterol LDL Cholesterol Direct HDL Cholesterol Urine WBC (Auto) Vancomycin Trough Coronavirus (PCR) Crossmatch 09/01/19 09/01/19 09/02/19 23:13 23:35 05:37 WBC RBC Hgb Hct MCV MCH MCHC RDW Plt Count Lymph % (Auto) Lyman % (Auto) Lymph # Lyman # Baso # Seg Neutrophils % Seg Neuts % (Manual) Lymphocytes % (Manual) Monocytes % (Manual) Basophils % (Manual) Nucleated RBC % Seg Neutrophils # Seg Neutrophils # Man Lymphocytes # (Manual) Monocytes # (Manual) Eosinophils # (Manual) Basophils # (Manual) PT INR D-Dimer ABG pH ABG pO2 ABG HCO3 ABG O2 Saturation ABG Base Excess ABG Hemoglobin Oxyhemoglobin Sodium Potassium Chloride Carbon Dioxide BUN Creatinine Glucose POC Glucose 131 H 110 H 129 H Lactic Acid Calcium Magnesium Iron TIBC Ferritin AST ALT Lactate Dehydrogenase Troponin T C-Reactive Protein Total Protein Albumin Prealbumin Cholesterol LDL Cholesterol Direct HDL Cholesterol Urine WBC (Auto) Vancomycin Trough Coronavirus (PCR) Crossmatch 09/02/19 09/02/19 09/02/19 12:01 17:24 23:39 WBC RBC Hgb Hct MCV MCH MCHC RDW Plt Count Lymph % (Auto) Lyman % (Auto) Lymph # Lyman # Baso # Seg Neutrophils % Seg Neuts % (Manual) Lymphocytes % (Manual) Monocytes % (Manual) Basophils % (Manual) Nucleated RBC % Seg Neutrophils # Seg Neutrophils # Man Lymphocytes # (Manual) Monocytes # (Manual) Eosinophils # (Manual) Basophils # (Manual) PT INR D-Dimer ABG pH ABG pO2 ABG HCO3 ABG O2 Saturation ABG Base Excess ABG Hemoglobin Oxyhemoglobin Sodium Potassium Chloride Carbon Dioxide BUN Creatinine Glucose POC Glucose 129 H 118 H 133 H Lactic Acid Calcium Magnesium Iron TIBC Ferritin AST ALT Lactate Dehydrogenase Troponin T C-Reactive Protein Total Protein Albumin Prealbumin Cholesterol LDL Cholesterol Direct HDL Cholesterol Urine WBC (Auto) Vancomycin Trough Coronavirus (PCR) Crossmatch 09/03/19 09/04/19 09/04/19 05:24 00:22 05:28 WBC RBC Hgb Hct MCV MCH MCHC RDW Plt Count Lymph % (Auto) Lyman % (Auto) Lymph # Lyman # Baso # Seg Neutrophils % Seg Neuts % (Manual) Lymphocytes % (Manual) Monocytes % (Manual) Basophils % (Manual) Nucleated RBC % Seg Neutrophils # Seg Neutrophils # Man Lymphocytes # (Manual) Monocytes # (Manual) Eosinophils # (Manual) Basophils # (Manual) PT INR D-Dimer ABG pH ABG pO2 ABG HCO3 ABG O2 Saturation ABG Base Excess ABG Hemoglobin Oxyhemoglobin Sodium Potassium Chloride Carbon Dioxide BUN Creatinine Glucose POC Glucose 114 H 121 H 152 H Lactic Acid Calcium Magnesium Iron TIBC Ferritin AST ALT Lactate Dehydrogenase Troponin T C-Reactive Protein Total Protein Albumin Prealbumin Cholesterol LDL Cholesterol Direct HDL Cholesterol Urine WBC (Auto) Vancomycin Trough Coronavirus (PCR) Crossmatch Allied health notes reviewed: RT
[2019-09-04] MEDS: DOCUSATE SODIUM 100 MG/10 ML ORAL LIQD PO SCH ×2 (09:43→22:29)
[2019-09-04] MEDS: levETIRAcetam 500 MG/5 ML ORAL LIQD FEEDTUBE SCH ×2 (09:43→22:29)
[2019-09-04] MEDS: FAMOTIDINE 20 MG TAB PO SCH ×2 (09:43→22:29)
[2019-09-04] MEDS: ASPIRIN 81 MG TAB CHEW PO SCH (09:43)
[2019-09-04] MEDS: FOLIC ACID 1 MG TAB PO SCH (09:43)
[2019-09-04] MEDS: METOPROLOL TARTRATE 25 MG TAB PO SCH ×2 (09:43→22:29)
[2019-09-04] MEDS: ENOXAPARIN 40 MG/0.4 ML INJ SUB-Q SCH (09:45)
[2019-09-04] MEDS: SODIUM HYPOCHLORITE, DAKIN'S 1/2 STRENGTH (0.25%) 473 ML TOPICAL SOLN TP SCH ×2 (09:45→22:30)
--- NOTE | 2019-09-04 10:53 | Progress Note ---
Assessment and Plan /Acute respiratory Failure with Hypoxia - Due to bilateral PNA with COVID 19 infection. -pulmonary critical care following -Continue scheduled labs, mechanical ventilation, supportive care as needed - s/p trach and PEG on 08/31/2019 /COVid positive b/l pneumonia with severe sepsis -Possible abscess, no need for drianage per ID/pULM -Received Plaquenil and cefepime, -Currently patient is on Levaquin per ID 08/20/2019; hernandez PCR negative 08/10/2019; hernandez PCR positive 07/29/2019; hernandez PCR positive 07/04/2019; hernandez PCR positive /Adynamic ileus; on abdominal x-ray, -consulted surgery and recommended to resume tube feeding -Trach and PEG scheduled for 08/31/2019 /Vomitings: Probably secondary to high residuals -IV Zofran as needed, lowered the rate for tube feeding -Discussed with patient's nurse Acute metabolic encephalopathy -Likely due to respiratory arrest and severe sepsis with underlying advanced dementia - Hold Hyoscamine. monitor Troponins. -CT head unremarkable Shock, likely septic: Lactic acidosis -Levophed as needed, continue IV fluid COPD with exacerbation -Likely due to COVID-19 pneumonia -Continue scheduled nebs Anemia, Microcytic -due to iron deficiency - monitor H&H, transfused one unit Pressure Ulcers - buttocks, right lateral foot area - present upon admission - wound care consulted Hyponatremia, continue IV fluid DM type 2 - Accuchecks with sliding scale insulin HTN Essential, now hypotensive -relatively low BP - on IVF. monitor Seizure D/o/CVA/immobility/BIpolar D/o/SCZ chronic medical conditions - continue meds Severe PCM, TF for now, dietary following patient is DNR- Called and verified information Guarded prognosis, patient is critically ill Awaiting trach and PEG, and LTAC placement 07/04- 08/19: please see 08/[address] arana 08/20-08/28: please see 08/[address] Leyva 08/29: Resumed care. Remains on full ventilatory support mental status still unchanged. Continue supportive care. Monitor off antibiotics per ID. Resumed TF, plan for trach and PEG tomorrow. 08/30: Plan for trach and PEG today, will continue to provide supportive care and follow clinically 08/31: On trach and PEG. tolerating TF. pending LTAC placement 09/01: pending LTAC placement 09/02: wean off vent as tolerated. pending LTAC placement 09/03: wean off vent as tolerated. pending LTAC placement The high probability of a clinically significant, sudden or life threatening deterioration of the [respiratory, CVS, RESPIRATORY MEDICINE PHYSICIAN] system(s) required my full and di rect attention, intervention and personal management. The aggregate critical care time was [32] minutes. This time is in addition to time spent performing reported procedures but includes the following: [x] Data Review and interpretation [x] Patient assessment and monitoring of vital signs [x] Documentation [x] Medication orders and management Brief History: 69-year-old male with PMH of CVA with RHP, HTN, DM2, SCZ, Dementia, Alcohol use D/o, Seizure D/O, presents to the emergency department via EMS from home with progressive SOB and impending espiratory failure with an unresponsive episode. Apparently the patient was witnessed becoming unresponsive by family members. Reportedly, pt had just gotten a high dose of Hyoscamine When EMS got there, the patient was agonal breathing and had a faint pulse. No CPR was indicated per EMS. PT was intubated and received some IV fluid en route to the hospital. He was admitted for sepsis, b/l PNA, acute respiratory failure. Patient was tested positive for COVID19. Evaluated by ID , received antibiotics Plaquenil, and inflammatory markers were checked and followed. Patient continues to be hypotensive currently on Levophed, unable to wean- remains intubated on ventilatory support, critically ill, DNR status however family wants full treatment. Surgery evaluated recommend trach and PEG. need LTAC for discharge Physical exam: General appearance: Present: no acute distress, cachectic, other (On vent) - EENT Eyes: Present: PERRL, EOM intact - Neck Neck: Present: supple, normal ROM, other (trach tube) - Respiratory Respiratory effort: normal Respiratory: bilateral: diminished, negative: rales, rhonchi - Cardiovascular Rhythm: regular Heart Sounds: Present: S1 & S2 - Extremities Extremities: no ischemia, No edema - Abdominal General gastrointestinal: soft, non-tender, distended, PEG on place - Integumentary Integumentary: Present: clear, warm - Psychiatric Psychiatric: other (Intubated on trach) - Neurologic Neurologic: other (Intubated on trach) Subjective Date of service: 09/04/19 Principal diagnosis: Bilateral pneumonia, severe sepsis with septic shock, encephalopathy Interval history: Patient seen and examined. Medical records and medication list reviewed. No acute event overnight noted by the RN. Patient is now negative for COVID-19. Patient remains intubated with trach on mechanical ventilation Discussed plan of care at bedside with patient's RN. Objective - Constitutional Vitals: Vital Signs - 12hr 09/03/19 09/03/19 09/03/19 23:00 23:35 23:39 Temperature 98.4 F Pulse Rate 65 62 Pulse Rate [ From Monitor] Respiratory 18 Rate Blood Pressure 113/65 96/54 O2 Sat by Pulse 100 100 Oximetry O2 Sat by Pulse Oximetry [ Assessment] 09/04/19 09/04/19 09/04/19 00:00 01:00 02:00 Temperature Pulse Rate 67 73 Pulse Rate [ 66 From Monitor] Respiratory 15 23 Rate Blood Pressure 112/64 119/59 100/57 O2 Sat by Pulse 100 100 100 Oximetry O2 Sat by Pulse Oximetry [ Assessment] 09/04/19 09/04/19 09/04/19 03:00 03:38 04:00 Temperature 98.6 F Pulse Rate 62 74 Pulse Rate [ 73 From Monitor] Respiratory 15 17 Rate Blood Pressure 108/49 138/75 O2 Sat by Pulse 99 100 Oximetry O2 Sat by Pulse Oximetry [ Assessment] 09/04/19 09/04/19 09/04/19 04:20 04:23 05:00 Temperature Pulse Rate 73 72 Pulse Rate [ From Monitor] Respiratory 16 Rate Blood Pressure 109/59 110/63 O2 Sat by Pulse 100 99 Oximetry O2 Sat by Pulse 100 Oximetry [ Assessment] 09/04/19 09/04/19 09/04/19 06:00 07:00 08:00 Temperature 99.7 F H Pulse Rate 76 76 81 Pulse Rate [ From Monitor] Respiratory 13 16 19 Rate Blood Pressure 126/66 131/71 124/73 O2 Sat by Pulse 99 99 100 Oximetry O2 Sat by Pulse Oximetry [ Assessment] 09/04/19 09/04/19 09/04/19 08:11 09:00 09:43 Temperature Pulse Rate 76 86 89 Pulse Rate [ From Monitor] Respiratory 18 14 Rate Blood Pressure 131/71 147/81 126/81 O2 Sat by Pulse 99 99 Oximetry O2 Sat by Pulse Oximetry [ Assessment] 09/04/19 10:15 Temperature Pulse Rate Pulse Rate [ From Monitor] Respiratory Rate Blood Pressure O2 Sat by Pulse Oximetry O2 Sat by Pulse 99 Oximetry [ Assessment] - Labs CBC & Chem 7: 08/30/19 05:10 09/01/19 14:50 Labs: Abnormal lab results 09/04/19 09/04/19 Range/Units 00:22 05:28 POC Glucose 121 H 152 H (70-105) HEART Score - HEART Score Troponin: Troponin T 0.013 ng/mL (0.00-0.029) 07/04/19 07:05
--- NOTE | 2019-09-04 14:49 | Progress Note ---
Assessment and Plan Cultures: 07/03/2019 urine culture: No growth 07/03/2019 Tracheal aspirate: E.coli 07/29/2019 urine culture: neg 07/30/2019 blood culture: no growth tracheal asp + Pseudomonas 08/06/2019 blood culture: no growth 08/09/2019 Wound MDR Enterobacter 08/16/2019 blood culture: no growth to date 08/20/2019 COVID-19 PCR: negative A/P: 69-year-old male with CVA, hypertension, dementia, schizophrenia, alcohol use disorder was admitted to the emergency room after being brought in by EMS with progressive shortness of breath and unresponsiveness. He was noted to have agonal breathing and a faint pulse requiring CPR. It seems patient was on hospice recently, prior to admission. #Shock, likely septic: shock resolved, remains off pressors. still intermittent fever, leukocytosis worse again: bacterial pneumonia vs sacral decubitus infection. #Non-resolving pneumonia/Cavitary pneumonia: ? abscess. Sputum +Pseudomonas. CT shows RUL pneumonia with 2.4 cm cavity and LLL pneumonia with moderate left pleural effusion. No need for thoracentesis per Pulm. #Penile/scrotal and buttocks wounds: ?cellulitis #Sacral decubitus: worsening on last exam ? necrotic. Evaluated for surgery, no indications for intervention. 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 bleeding overnight s/p surgical management bedside, 08/09/2019 Wound MDR Enterobacter likely a colonizer (superficial wound cx) #UTI: per documentation initial carroll placed on 07/03, exchanged on 07/31. #Severe COVID-19 disease and pneumonia: Markers improving. Completed Plaquenil. Completed Ceftriaxone for treatment E.coli in tracheal aspirate. Repeat COVID finally negative on 08/20/2019. #Acute respiratory failure: remains on mechanical ventilation. #Multiple skin tears documented on admission #Anemia: from sacral wound bleeding Recs: Monitor off medication for now. Overall prognosis is extremely poor. Continue wound care Mekhi Barboza MD [facility] M: [phone] O: [phone] F: [phone] Subjective Date of service: 09/04/19 Principal diagnosis: Bilateral pneumonia, severe sepsis with septic shock, encephalopathy Interval history: Afebrile. No acute change. Objective - Exam Narrative Exam: Narrative Exam: Physical Exam (reviewed in chart due to PPE conservation) Constitutional: intubated, sedated, on the vent Head, Ears, Nose: normocephalic, atraumatic Eyes: limited due to PPE conservation strategy Neck: intubated Oral: intubated Cardiovascular: limited due to PPE conservation strategy Respiratory: limited due to PPE conservation strategy GI: limited due to PPE conservation strategy Musculoskeletal: limited due to PPE conservation strategy Skin: limited due to PPE conservation strategy. Decubitus + Hem/Lymphatic: limited due to PPE conservation strategy Psych: no agitation Neurological: sedated, intubated, on the vent, exam limited - Constitutional Vitals: Vital Signs Temp Pulse Resp BP Pulse Ox 98.3 F 80 24 144/77 100 09/04/19 12:00 09/04/19 14:00 09/04/19 14:00 09/04/19 14:00 09/04/19 14:00 Temperature -Last 24 Hours Temperature 98.3 F Temperature 99.7 F Temperature 98.6 F Temperature 98.4 F Temperature 98.3 F Temperature 101.3 F - Labs CBC & Chem 7: 08/30/19 05:10 09/01/19 14:50 Labs: Abnormal lab results 09/04/19 09/04/19 Range/Units 00:22 05:28 POC Glucose 121 H 152 H (70-105)
[2019-09-04] MEDS: POLYETHYLENE GLYCOL 3350 17 GM POWDER PO SCH (22:30)
[2019-09-05] MEDS: INSULIN LISPRO 100 UNIT/ML SUB-Q SCH ×4 (00:12→19:01)
[2019-09-05] MEDS: GLYCOPYRROLATE 1 MG TAB PO SCH ×3 (10:10→20:04)
[2019-09-05] MEDS: METOPROLOL TARTRATE 25 MG TAB PO SCH ×2 (10:55→21:29)
[2019-09-05] MEDS: ASPIRIN 81 MG TAB CHEW PO SCH (10:55)
[2019-09-05] MEDS: fentaNYL 25 MCG/HR PATCH 72HR TD SCH (10:55)
[2019-09-05] MEDS: DOCUSATE SODIUM 100 MG/10 ML ORAL LIQD PO SCH ×2 (10:56→21:29)
[2019-09-05] MEDS: ENOXAPARIN 40 MG/0.4 ML INJ SUB-Q SCH (10:56)
[2019-09-05] MEDS: levETIRAcetam 500 MG/5 ML ORAL LIQD FEEDTUBE SCH ×2 (10:56→21:29)
[2019-09-05] MEDS: FOLIC ACID 1 MG TAB PO SCH (10:56)
[2019-09-05] MEDS: FAMOTIDINE 20 MG TAB PO SCH ×2 (10:56→21:29)
[2019-09-05] MEDS: SCOPOLAMINE TRANSDERMAL PATCH 72 HR TD SCH (10:57)
[2019-09-05] MEDS: SODIUM HYPOCHLORITE, DAKIN'S 1/2 STRENGTH (0.25%) 473 ML TOPICAL SOLN TP SCH ×2 (10:58→21:31)
--- NOTE | 2019-09-05 11:10 | Progress Note ---
Assessment and Plan S/p Cardiopulmonary arrest with ROSC Severe Sepsis with septic shock-resolved Acute hypoxemic respiratory failure on MVS s/p Trach COVID-19 positive, now Negative Bilateral pneumonia Oropharyngeal dysphagia s/p PEG Decubitus ulcers-unstageable Moderate protein calorie malnutriton Thrombocytosis Microcytic anemia s/p Trach- trach care, airway clearance with secretion management Continue ATP trials per protocol, full support at night for now Trend temperature curve, continue to monitor off antibiotics Aspiration precautions HOB >40 Supportive transfusions to keep HgB >7g/dL Continue all care as documented Discharge planning - continue wound care per WCT - sedation prn for target RASS 0 to -1 - continue to wean supplemental oxygen for target O2 sat's > 90% - Daily SAT's and SBT assessment as tolerated - VAP bundle addressed - continue lung protective strategies - continue bronchodilators with pulmonary hygiene per RT - wean per pulmonary driven protocols otherwise - accuchecks with glycemic control per SSI (While critically ill target blood glucose of 140-180 mg/dL; avoid hypoglycemia) - continue to avoid benzodiazepines, reduce the possibility of delirium - prn analgesia per CPOT score - Maintenance of sleep-wake cycle, avoid delirium - continue enteral nutritional support at goal rate as tolerated - VTE prophylaxis-Enoxaparin -Stress ulcer prophylaxis- Famotidine - continue mobility protocol, off loading and skin assessment for pressure ulcer prevention - Monitor hemodynamics closely -Wright catheter in this patient with unstageable sacral decubitus ulcer - continue other care per attending / other consultants - discharge planning ongoing concurrently .... Re-evaluate in am & prn CONDITION: CRITICAL PROGNOSIS: GUARDED CODE STATUS: DNAR Subjective Date of service: 09/05/19 Principal diagnosis: Bilateral pneumonia, severe sepsis with septic shock, encephalopathy Interval history: The patient is a 69-year-old male with CVA, hypertension, dementia, schizophrenia, alcohol use disorder was admitted to the emergency room after being brought in by EMS with progressive shortness of breath and unresponsiveness. He was noted to have agonal breathing and a faint pulse requiring CPR. Patient was intubated and brought to the hospital. Patient is seen today for: Ac hypoxemic Resp failure on MVS; Severe sepsis with Shock; Ivan. Pneumonia; PUI coronavirus-19 infection- now Negtive PCR Seen and examined at bedside; 24hour events reviewed; nursing and respiratory care staff consulted; no adverse overnight events reported to me; resting in bed.Tmax 100.5 On MVS , tolerating daily PSV trials at this time; Was on ATP for over 12 hours yesterday, began to have increased work of breathing this morning so placed back on PSV s/p trach, s/p PEG Tolerating tube feeding Objective Vital Signs - 12hr 09/04/19 09/05/19 09/05/19 23:32 00:00 01:00 Temperature 99.6 F Pulse Rate 89 89 Pulse Rate [ 86 From Monitor] Respiratory 29 H 28 H Rate Blood Pressure 108/58 120/62 O2 Sat by Pulse 99 95 Oximetry O2 Sat by Pulse 100 Oximetry [ Assessment] 09/05/19 09/05/19 09/05/19 02:00 03:00 04:00 Temperature 99.7 F H Pulse Rate 90 94 H 93 H Pulse Rate [ 101 H From Monitor] Respiratory 26 H 17 28 H Rate Blood Pressure 115/60 105/61 115/66 O2 Sat by Pulse 100 91 95 Oximetry O2 Sat by Pulse Oximetry [ Assessment] 09/05/19 09/05/19 09/05/19 05:00 06:00 07:00 Temperature Pulse Rate 94 H 105 H 114 H Pulse Rate [ From Monitor] Respiratory 22 33 H 41 H Rate Blood Pressure 121/66 121/66 138/74 O2 Sat by Pulse 99 96 91 Oximetry O2 Sat by Pulse Oximetry [ Assessment] 09/05/19 09/05/19 09/05/19 08:00 08:10 09:00 Temperature 100.5 F H Pulse Rate 112 H 107 H 111 H Pulse Rate [ 101 H From Monitor] Respiratory 38 H 35 H 32 H Rate Blood Pressure 140/81 140/81 133/80 O2 Sat by Pulse 97 98 98 Oximetry O2 Sat by Pulse Oximetry [ Assessment] 09/05/19 09/05/19 10:00 10:55 Temperature Pulse Rate 110 H 116 H Pulse Rate [ From Monitor] Respiratory 33 H Rate Blood Pressure 138/79 138/79 O2 Sat by Pulse 98 Oximetry O2 Sat by Pulse Oximetry [ Assessment] Constitutional: appears uncomfortable, other (eelderly and chronically ill looking AAM, normocep[krystina;ic with mildly increased respiratory effort at rest) Eyes: non-icteric ENT: oropharynx moist, other (s/p trach to MVS) Neck: supple, no lymphadenopathy, no JVD Effort: normal Ascultation: Bilateral: diminished breath sounds, rhonchi Percussion: Bilateral: not dull Cardiovascular: regular rate and rhythm Gastrointestinal: normoactive bowel sounds, soft, non-tender, non-distended, other (+ PEG tube) Integumentary: decubitus ulcer (sacral) Extremities: no cyanosis, no edema, pink and warm, pulses normal Neurologic: pupils equal and round, unable to assess Psychiatric: other (Unable to assess re: AMS) CBC and BMP: 08/30/19 05:10 09/01/19 14:50 ABG, PT/INR, D-dimer: ABG ABG pH 7.407 pH Units (7.350-7.450) 09/01/19 17:00 ABG pCO2 40.4 mm Hg 09/01/19 17:00 ABG pO2 116.0 mm Hg (80.0-90.0) H 09/01/19 17:00 ABG O2 Saturation 98.2 % (95.0-99.0) 09/01/19 17:00 PT/INR, D-dimer PT 16.0 Sec. (12.2-14.9) H 07/03/19 22:20 INR 1.26 (0.87-1.13) H 07/03/19 22:20 D-Dimer 1808.06 ng/mlDDU (0-234) H 08/07/19 10:24 Abnormal lab findings: Abnormal Labs 07/03/19 07/03/19 07/03/19 19:57 21:10 21:13 WBC RBC Hgb Hct MCV MCH MCHC RDW Plt Count Lymph % (Auto) Logan % (Auto) Lymph # Logan # Baso # Seg Neutrophils % Seg Neuts % (Manual) Lymphocytes % (Manual) Monocytes % (Manual) Basophils % (Manual) Nucleated RBC % Seg Neutrophils # Seg Neutrophils # Man Lymphocytes # (Manual) Monocytes # (Manual) Eosinophils # (Manual) Basophils # (Manual) PT INR D-Dimer ABG pH 7.238 L ABG pO2 210.8 H ABG HCO3 15.4 L ABG O2 Saturation 99.2 H ABG Base Excess -11.1 L ABG Hemoglobin 8.0 L Oxyhemoglobin Sodium 124 L Potassium Chloride 92.9 L Carbon Dioxide 10 L BUN 23 H Creatinine 0.5 L Glucose 118 H POC Glucose Lactic Acid Calcium 7.0 L Magnesium Iron TIBC Ferritin AST 70 H ALT 88 H Lactate Dehydrogenase Troponin T 0.032 H C-Reactive Protein Total Protein 5.0 L Albumin 1.8 L Prealbumin Cholesterol 47 L LDL Cholesterol Direct 25 L HDL Cholesterol 20 L Urine WBC (Auto) 12.0 H Vancomycin Trough Coronavirus (PCR) Crossmatch 07/03/19 07/03/19 07/03/19 22:20 22:20 22:20 WBC 30.5 H RBC 2.96 L Hgb 7.7 L Hct 23.9 L MCV 81 L MCH 26 L MCHC RDW 18.6 H Plt Count 459 H Lymph % (Auto) Logan % (Auto) Lymph # Logan # Baso # Seg Neutrophils % Seg Neuts % (Manual) 93.0 H Lymphocytes % (Manual) 0.5 L Monocytes % (Manual) Basophils % (Manual) Nucleated RBC % Seg Neutrophils # Seg Neutrophils # Man 28.4 H Lymphocytes # (Manual) 0.2 L Monocytes # (Manual) Eosinophils # (Manual) Basophils # (Manual) PT 16.0 H INR 1.26 H D-Dimer ABG pH ABG pO2 ABG HCO3 ABG O2 Saturation ABG Base Excess ABG Hemoglobin Oxyhemoglobin Sodium Potassium Chloride Carbon Dioxide BUN Creatinine Glucose POC Glucose Lactic Acid 6.90 H* Calcium Magnesium Iron TIBC Ferritin AST ALT Lactate Dehydrogenase Troponin T C-Reactive Protein Total Protein Albumin Prealbumin Cholesterol LDL Cholesterol Direct HDL Cholesterol Urine WBC (Auto) Vancomycin Trough Coronavirus (PCR) Crossmatch 07/03/19 07/04/19 07/04/19 23:58 05:15 07:05 WBC 17.1 H RBC 3.22 L Hgb 8.3 L Hct 25.4 L MCV 79 L MCH 26 L MCHC RDW 18.6 H Plt Count Lymph % (Auto) Logan % (Auto) Lymph # Logan # Baso # Seg Neutrophils % Seg Neuts % (Manual) 74.0 H Lymphocytes % (Manual) 0 L Monocytes % (Manual) Basophils % (Manual) Nucleated RBC % Seg Neutrophils # Seg Neutrophils # Man 12.7 H Lymphocytes # (Manual) 0.0 L Monocytes # (Manual) Eosinophils # (Manual) Basophils # (Manual) PT INR D-Dimer ABG pH 7.310 L ABG pO2 73.2 L ABG HCO3 17.8 L ABG O2 Saturation 93.8 L ABG Base Excess -7.7 L ABG Hemoglobin 9.6 L Oxyhemoglobin 92.3 L Sodium Potassium Chloride Carbon Dioxide BUN Creatinine Glucose POC Glucose Lactic Acid 7.10 H* Calcium Magnesium Iron TIBC Ferritin AST ALT Lactate Dehydrogenase Troponin T C-Reactive Protein Total Protein Albumin Prealbumin Cholesterol LDL Cholesterol Direct HDL Cholesterol Urine WBC (Auto) Vancomycin Trough Coronavirus (PCR) Crossmatch 07/04/19 07/04/19 07/04/19 07:05 07:05 07:05 WBC RBC Hgb Hct MCV MCH MCHC RDW Plt Count Lymph % (Auto) Logan % (Auto) Lymph # Logan # Baso # Seg Neutrophils % Seg Neuts % (Manual) Lymphocytes % (Manual) Monocytes % (Manual) Basophils % (Manual) Nucleated RBC % Seg Neutrophils # Seg Neutrophils # Man Lymphocytes # (Manual) Monocytes # (Manual) Eosinophils # (Manual) Basophils # (Manual) PT INR D-Dimer ABG pH ABG pO2 ABG HCO3 ABG O2 Saturation ABG Base Excess ABG Hemoglobin Oxyhemoglobin Sodium 120 L Potassium 5.1 H Chloride 90.0 L Carbon Dioxide 14 L BUN 26 H Creatinine 0.5 L Glucose POC Glucose Lactic Acid 3.30 H* Calcium 8.0 L Magnesium Iron 9 L TIBC 97 L Ferritin AST 73 H ALT 91 H Lactate Dehydrogenase Troponin T C-Reactive Protein Total Protein 5.5 L Albumin 2.0 L Prealbumin Cholesterol LDL Cholesterol Direct HDL Cholesterol Urine WBC (Auto) Vancomycin Trough Coronavirus (PCR) Crossmatch 07/04/19 07/04/19 07/04/19 09:39 09:39 09:39 WBC RBC Hgb Hct MCV MCH MCHC RDW Plt Count Lymph % (Auto) Logan % (Auto) Lymph # Logan # Baso # Seg Neutrophils % Seg Neuts % (Manual) Lymphocytes % (Manual) Monocytes % (Manual) Basophils % (Manual) Nucleated RBC % Seg Neutrophils # Seg Neutrophils # Man Lymphocytes # (Manual) Monocytes # (Manual) Eosinophils # (Manual) Basophils # (Manual) PT INR D-Dimer 1419.14 H ABG pH ABG pO2 ABG HCO3 ABG O2 Saturation ABG Base Excess ABG Hemoglobin Oxyhemoglobin Sodium Potassium Chloride Carbon Dioxide BUN Creatinine Glucose POC Glucose Lactic Acid Calcium Magnesium Iron TIBC Ferritin 1719.0 H AST ALT Lactate Dehydrogenase 234 H Troponin T C-Reactive Protein 15.50 H Total Protein Albumin Prealbumin Cholesterol LDL Cholesterol Direct HDL Cholesterol Urine WBC (Auto) Vancomycin Trough Coronavirus (PCR) Crossmatch 07/04/19 07/04/19 07/04/19 10:09 18:08 18:28 WBC RBC Hgb Hct MCV MCH MCHC RDW Plt Count Lymph % (Auto) Logan % (Auto) Lymph # Logan # Baso # Seg Neutrophils % Seg Neuts % (Manual) Lymphocytes % (Manual) Monocytes % (Manual) Basophils % (Manual) Nucleated RBC % Seg Neutrophils # Seg Neutrophils # Man Lymphocytes # (Manual) Monocytes # (Manual) Eosinophils # (Manual) Basophils # (Manual) PT INR D-Dimer ABG pH ABG pO2 ABG HCO3 ABG O2 Saturation ABG Base Excess ABG Hemoglobin Oxyhemoglobin Sodium 117 L* Potassium 5.6 H Chloride 90.3 L Carbon Dioxide 16 L BUN 28 H Creatinine 0.5 L Glucose 58 L POC Glucose 65 L Lactic Acid Calcium 8.2 L Magnesium Iron TIBC Ferritin AST ALT Lactate Dehydrogenase Troponin T C-Reactive Protein Total Protein Albumin Prealbumin Cholesterol LDL Cholesterol Direct HDL Cholesterol Urine WBC (Auto) Vancomycin Trough Coronavirus (PCR) Positive A Crossmatch 07/04/19 07/04/19 07/04/19 23:45 Unknown Unknown WBC RBC Hgb Hct MCV MCH MCHC RDW Plt Count Lymph % (Auto) Logan % (Auto) Lymph # Logan # Baso # Seg Neutrophils % Seg Neuts % (Manual) Lymphocytes % (Manual) Monocytes % (Manual) Basophils % (Manual) Nucleated RBC % Seg Neutrophils # Seg Neutrophils # Man Lymphocytes # (Manual) Monocytes # (Manual) Eosinophils # (Manual) Basophils # (Manual) PT INR D-Dimer 759.77 H ABG pH ABG pO2 ABG HCO3 ABG O2 Saturation ABG Base Excess ABG Hemoglobin Oxyhemoglobin Sodium 122 L Potassium Chloride 93.0 L Carbon Dioxide 19 L BUN 27 H Creatinine 0.5 L Glucose POC Glucose Lactic Acid Calcium 8.3 L Magnesium Iron TIBC Ferritin 1301.0 H AST ALT Lactate Dehydrogenase Troponin T C-Reactive Protein Total Protein Albumin Prealbumin Cholesterol LDL Cholesterol Direct HDL Cholesterol Urine WBC (Auto) Vancomycin Trough Coronavirus (PCR) Crossmatch 07/04/19 07/05/19 07/05/19 Unknown 03:20 04:00 WBC RBC Hgb Hct MCV MCH MCHC RDW Plt Count Lymph % (Auto) Logan % (Auto) Lymph # Logan # Baso # Seg Neutrophils % Seg Neuts % (Manual) Lymphocytes % (Manual) Monocytes % (Manual) Basophils % (Manual) Nucleated RBC % Seg Neutrophils # Seg Neutrophils # Man Lymphocytes # (Manual) Monocytes # (Manual) Eosinophils # (Manual) Basophils # (Manual) PT INR D-Dimer ABG pH ABG pO2 60.6 L ABG HCO3 ABG O2 Saturation 93.5 L ABG Base Excess -2.4 L ABG Hemoglobin 6.9 L Oxyhemoglobin 92.0 L Sodium 125 L Potassium Chloride 92.6 L Carbon Dioxide 19 L BUN 24 H Creatinine 0.6 L Glucose POC Glucose Lactic Acid Calcium 8.2 L Magnesium 1.40 L Iron TIBC Ferritin AST ALT Lactate Dehydrogenase 242 H Troponin T C-Reactive Protein 16.70 H Total Protein Albumin Prealbumin Cholesterol LDL Cholesterol Direct HDL Cholesterol Urine WBC (Auto) Vancomycin Trough Coronavirus (PCR) Crossmatch 07/05/19 07/05/19 07/05/19 10:11 16:15 17:54 WBC 46.4 H* RBC 2.77 L Hgb 7.2 L Hct 21.9 L MCV 79 L MCH 26 L MCHC RDW 19.0 H Plt Count Lymph % (Auto) Logan % (Auto) Lymph # Logan # Baso # Seg Neutrophils % Seg Neuts % (Manual) 82.0 H Lymphocytes % (Manual) 1.0 L Monocytes % (Manual) Basophils % (Manual) Nucleated RBC % Seg Neutrophils # Seg Neutrophils # Man 38.0 H Lymphocytes # (Manual) 0.5 L Monocytes # (Manual) Eosinophils # (Manual) Basophils # (Manual) PT INR D-Dimer ABG pH ABG pO2 ABG HCO3 ABG O2 Saturation ABG Base Excess ABG Hemoglobin Oxyhemoglobin Sodium Potassium Chloride Carbon Dioxide BUN Creatinine Glucose POC Glucose 69 L Lactic Acid Calcium Magnesium Iron TIBC Ferritin AST ALT Lactate Dehydrogenase Troponin T C-Reactive Protein Total Protein Albumin Prealbumin Cholesterol LDL Cholesterol Direct HDL Cholesterol Urine WBC (Auto) Vancomycin Trough 23.2 H Coronavirus (PCR) Crossmatch 07/05/19 07/06/19 07/06/19 19:58 00:27 00:27 WBC RBC Hgb Hct MCV MCH MCHC RDW Plt Count Lymph % (Auto) Logan % (Auto) Lymph # Logan # Baso # Seg Neutrophils % Seg Neuts % (Manual) Lymphocytes % (Manual) Monocytes % (Manual) Basophils % (Manual) Nucleated RBC % Seg Neutrophils # Seg Neutrophils # Man Lymphocytes # (Manual) Monocytes # (Manual) Eosinophils # (Manual) Basophils # (Manual) PT INR D-Dimer 1333.22 H ABG pH ABG pO2 ABG HCO3 ABG O2 Saturation ABG Base Excess ABG Hemoglobin Oxyhemoglobin Sodium 127 L Potassium Chloride Carbon Dioxide BUN Creatinine Glucose POC Glucose Lactic Acid Calcium Magnesium Iron TIBC Ferritin 977.1 H AST ALT Lactate Dehydrogenase Troponin T C-Reactive Protein Total Protein Albumin Prealbumin Cholesterol LDL Cholesterol Direct HDL Cholesterol Urine WBC (Auto) Vancomycin Trough Coronavirus (PCR) Crossmatch 07/06/19 07/06/19 07/06/19 00:27 02:00 02:56 WBC RBC Hgb Hct MCV MCH MCHC RDW Plt Count Lymph % (Auto) Logan % (Auto) Lymph # Logan # Baso # Seg Neutrophils % Seg Neuts % (Manual) Lymphocytes % (Manual) Monocytes % (Manual) Basophils % (Manual) Nucleated RBC % Seg Neutrophils # Seg Neutrophils # Man Lymphocytes # (Manual) Monocytes # (Manual) Eosinophils # (Manual) Basophils # (Manual) PT INR D-Dimer ABG pH ABG pO2 70.3 L ABG HCO3 ABG O2 Saturation 94.8 L ABG Base Excess ABG Hemoglobin 8.0 L Oxyhemoglobin 93.2 L Sodium Potassium Chloride Carbon Dioxide BUN Creatinine Glucose POC Glucose 117 H Lactic Acid Calcium Magnesium Iron TIBC Ferritin AST ALT Lactate Dehydrogenase 236 H Troponin T C-Reactive Protein 22.90 H Total Protein Albumin Prealbumin Cholesterol LDL Cholesterol Direct HDL Cholesterol Urine WBC (Auto) Vancomycin Trough Coronavirus (PCR) Crossmatch 07/06/19 07/06/19 07/06/19 03:49 03:49 07:40 WBC 38.8 H RBC 2.51 L Hgb 6.7 L Hct 19.9 L* MCV 79 L MCH 27 L MCHC RDW 19.2 H Plt Count Lymph % (Auto) Logan % (Auto) Lymph # Logan # Baso # Seg Neutrophils % Seg Neuts % (Manual) 90.5 H Lymphocytes % (Manual) 1.0 L Monocytes % (Manual) Basophils % (Manual) Nucleated RBC % Seg Neutrophils # Seg Neutrophils # Man 35.1 H Lymphocytes # (Manual) 0.4 L Monocytes # (Manual) Eosinophils # (Manual) Basophils # (Manual) PT INR D-Dimer ABG pH ABG pO2 ABG HCO3 ABG O2 Saturation ABG Base Excess ABG Hemoglobin Oxyhemoglobin Sodium 131 L Potassium Chloride 96.9 L Carbon Dioxide 18 L BUN 23 H Creatinine 0.5 L Glucose POC Glucose Lactic Acid Calcium 8.0 L Magnesium Iron TIBC Ferritin AST ALT Lactate Dehydrogenase Troponin T C-Reactive Protein Total Protein Albumin Prealbumin Cholesterol LDL Cholesterol Direct HDL Cholesterol Urine WBC (Auto) Vancomycin Trough Coronavirus (PCR) Crossmatch See Detail 07/06/19 07/06/19 07/06/19 12:38 14:39 20:00 WBC RBC Hgb Hct MCV MCH MCHC RDW Plt Count Lymph % (Auto) Logan % (Auto) Lymph # Logan # Baso # Seg Neutrophils % Seg Neuts % (Manual) Lymphocytes % (Manual) Monocytes % (Manual) Basophils % (Manual) Nucleated RBC % Seg Neutrophils # Seg Neutrophils # Man Lymphocytes # (Manual) Monocytes # (Manual) Eosinophils # (Manual) Basophils # (Manual) PT INR D-Dimer ABG pH ABG pO2 ABG HCO3 ABG O2 Saturation ABG Base Excess ABG Hemoglobin Oxyhemoglobin Sodium Potassium Chloride Carbon Dioxide BUN Creatinine Glucose POC Glucose 112 H 111 H 140 H Lactic Acid Calcium Magnesium Iron TIBC Ferritin AST ALT Lactate Dehydrogenase Troponin T C-Reactive Protein Total Protein Albumin Prealbumin Cholesterol LDL Cholesterol Direct HDL Cholesterol Urine WBC (Auto) Vancomycin Trough Coronavirus (PCR) Crossmatch 07/06/19 07/06/19 07/07/19 22:43 22:56 02:20 WBC RBC Hgb 7.9 L Hct 23.1 L MCV MCH MCHC RDW Plt Count Lymph % (Auto) Logan % (Auto) Lymph # Logan # Baso # Seg Neutrophils % Seg Neuts % (Manual) Lymphocytes % (Manual) Monocytes % (Manual) Basophils % (Manual) Nucleated RBC % Seg Neutrophils # Seg Neutrophils # Man Lymphocytes # (Manual) Monocytes # (Manual) Eosinophils # (Manual) Basophils # (Manual) PT INR D-Dimer ABG pH ABG pO2 ABG HCO3 ABG O2 Saturation ABG Base Excess ABG Hemoglobin Oxyhemoglobin Sodium Potassium Chloride Carbon Dioxide BUN Creatinine Glucose POC Glucose 122 H 149 H Lactic Acid Calcium Magnesium Iron TIBC Ferritin AST ALT Lactate Dehydrogenase Troponin T C-Reactive Protein Total Protein Albumin Prealbumin Cholesterol LDL Cholesterol Direct HDL Cholesterol Urine WBC (Auto) Vancomycin Trough Coronavirus (PCR) Crossmatch 07/07/19 07/07/19 07/07/19 04:35 05:27 05:34 WBC 23.1 H RBC 3.00 L Hgb 8.1 L Hct 24.2 L MCV 81 L MCH 27 L MCHC RDW 20.6 H Plt Count Lymph % (Auto) Logan % (Auto) Lymph # Logan # Baso # Seg Neutrophils % Seg Neuts % (Manual) 90.0 H Lymphocytes % (Manual) 2.0 L Monocytes % (Manual) Basophils % (Manual) Nucleated RBC % Seg Neutrophils # Seg Neutrophils # Man 20.8 H Lymphocytes # (Manual) 0.5 L Monocytes # (Manual) Eosinophils # (Manual) Basophils # (Manual) PT INR D-Dimer ABG pH ABG pO2 65.8 L ABG HCO3 ABG O2 Saturation 92.2 L ABG Base Excess ABG Hemoglobin 8.3 L Oxyhemoglobin 90.6 L Sodium Potassium Chloride Carbon Dioxide BUN Creatinine Glucose POC Glucose 132 H Lactic Acid Calcium Magnesium Iron TIBC Ferritin AST ALT Lactate Dehydrogenase Troponin T C-Reactive Protein Total Protein Albumin Prealbumin Cholesterol LDL Cholesterol Direct HDL Cholesterol Urine WBC (Auto) Vancomycin Trough Coronavirus (PCR) Crossmatch 07/07/19 07/07/19 07/07/19 05:34 11:50 15:58 WBC RBC Hgb 8.1 L Hct 24.2 L MCV MCH MCHC RDW Plt Count Lymph % (Auto) Logan % (Auto) Lymph # Logan # Baso # Seg Neutrophils % Seg Neuts % (Manual) Lymphocytes % (Manual) Monocytes % (Manual) Basophils % (Manual) Nucleated RBC % Seg Neutrophils # Seg Neutrophils # Man Lymphocytes # (Manual) Monocytes # (Manual) Eosinophils # (Manual) Basophils # (Manual) PT INR D-Dimer ABG pH ABG pO2 ABG HCO3 ABG O2 Saturation ABG Base Excess ABG Hemoglobin Oxyhemoglobin Sodium 135 L Potassium 3.3 L Chloride Carbon Dioxide 20 L BUN 27 H Creatinine 0.6 L Glucose 121 H POC Glucose 123 H Lactic Acid Calcium 8.0 L Magnesium Iron TIBC Ferritin AST ALT Lactate Dehydrogenase Troponin T C-Reactive Protein Total Protein Albumin Prealbumin Cholesterol LDL Cholesterol Direct HDL Cholesterol Urine WBC (Auto) Vancomycin Trough Coronavirus (PCR) Crossmatch 07/07/19 07/07/19 07/07/19 17:42 22:00 23:53 WBC RBC Hgb 8.0 L Hct 23.4 L MCV MCH MCHC RDW Plt Count Lymph % (Auto) Logan % (Auto) Lymph # Logan # Baso # Seg Neutrophils % Seg Neuts % (Manual) Lymphocytes % (Manual) Monocytes % (Manual) Basophils % (Manual) Nucleated RBC % Seg Neutrophils # Seg Neutrophils # Man Lymphocytes # (Manual) Monocytes # (Manual) Eosinophils # (Manual) Basophils # (Manual) PT INR D-Dimer ABG pH ABG pO2 ABG HCO3 ABG O2 Saturation ABG Base Excess ABG Hemoglobin Oxyhemoglobin Sodium Potassium Chloride Carbon Dioxide BUN Creatinine Glucose POC Glucose 107 H 117 H Lactic Acid Calcium Magnesium Iron TIBC Ferritin AST ALT Lactate Dehydrogenase Troponin T C-Reactive Protein Total Protein Albumin Prealbumin Cholesterol LDL Cholesterol Direct HDL Cholesterol Urine WBC (Auto) Vancomycin Trough Coronavirus (PCR) Crossmatch 07/08/19 07/08/19 07/08/19 00:45 00:45 00:45 WBC RBC Hgb Hct MCV MCH MCHC RDW Plt Count Lymph % (Auto) Logan % (Auto) Lymph # Logan # Baso # Seg Neutrophils % Seg Neuts % (Manual) Lymphocytes % (Manual) Monocytes % (Manual) Basophils % (Manual) Nucleated RBC % Seg Neutrophils # Seg Neutrophils # Man Lymphocytes # (Manual) Monocytes # (Manual) Eosinophils # (Manual) Basophils # (Manual) PT INR D-Dimer 1142.18 H ABG pH ABG pO2 ABG HCO3 ABG O2 Saturation ABG Base Excess ABG Hemoglobin Oxyhemoglobin Sodium Potassium Chloride Carbon Dioxide BUN Creatinine Glucose POC Glucose Lactic Acid Calcium Magnesium Iron TIBC Ferritin 839.0 H AST ALT Lactate Dehydrogenase 253 H Troponin T C-Reactive Protein 18.90 H Total Protein Albumin Prealbumin Cholesterol LDL Cholesterol Direct HDL Cholesterol Urine WBC (Auto) Vancomycin Trough Coronavirus (PCR) Crossmatch 07/08/19 07/08/19 07/08/19 04:30 05:11 12:02 WBC RBC Hgb Hct MCV MCH MCHC RDW Plt Count Lymph % (Auto) Logan % (Auto) Lymph # Logan # Baso # Seg Neutrophils % Seg Neuts % (Manual) Lymphocytes % (Manual) Monocytes % (Manual) Basophils % (Manual) Nucleated RBC % Seg Neutrophils # Seg Neutrophils # Man Lymphocytes # (Manual) Monocytes # (Manual) Eosinophils # (Manual) Basophils # (Manual) PT INR D-Dimer ABG pH ABG pO2 66.0 L ABG HCO3 ABG O2 Saturation 92.3 L ABG Base Excess ABG Hemoglobin 7.7 L Oxyhemoglobin 90.7 L Sodium Potassium Chloride Carbon Dioxide BUN Creatinine Glucose POC Glucose 108 H 153 H Lactic Acid Calcium Magnesium Iron TIBC Ferritin AST ALT Lactate Dehydrogenase Troponin T C-Reactive Protein Total Protein Albumin Prealbumin Cholesterol LDL Cholesterol Direct HDL Cholesterol Urine WBC (Auto) Vancomycin Trough Coronavirus (PCR) Crossmatch 07/08/19 07/08/19 07/08/19 16:15 18:22 23:35 WBC RBC Hgb Hct MCV MCH MCHC RDW Plt Count Lymph % (Auto) Logan % (Auto) Lymph # Logan # Baso # Seg Neutrophils % Seg Neuts % (Manual) Lymphocytes % (Manual) Monocytes % (Manual) Basophils % (Manual) Nucleated RBC % Seg Neutrophils # Seg Neutrophils # Man Lymphocytes # (Manual) Monocytes # (Manual) Eosinophils # (Manual) Basophils # (Manual) PT INR D-Dimer ABG pH ABG pO2 ABG HCO3 ABG O2 Saturation ABG Base Excess ABG Hemoglobin Oxyhemoglobin Sodium 134 L Potassium 3.3 L Chloride Carbon Dioxide 21 L BUN 27 H Creatinine 0.6 L Glucose 146 H POC Glucose 134 H 133 H Lactic Acid Calcium Magnesium Iron TIBC Ferritin AST ALT Lactate Dehydrogenase Troponin T C-Reactive Protein Total Protein Albumin Prealbumin Cholesterol LDL Cholesterol Direct HDL Cholesterol Urine WBC (Auto) Vancomycin Trough Coronavirus (PCR) Crossmatch 07/09/19 07/09/19 07/09/19 04:30 04:30 05:00 WBC 18.9 H RBC 2.77 L Hgb 7.4 L Hct 22.8 L MCV 82 L MCH 27 L MCHC RDW 20.9 H Plt Count 130 L Lymph % (Auto) Logan % (Auto) Lymph # Logan # Baso # Seg Neutrophils % Seg Neuts % (Manual) 84.0 H Lymphocytes % (Manual) 0 L Monocytes % (Manual) Basophils % (Manual) Nucleated RBC % Seg Neutrophils # Seg Neutrophils # Man 15.9 H Lymphocytes # (Manual) 0.0 L Monocytes # (Manual) Eosinophils # (Manual) Basophils # (Manual) PT INR D-Dimer ABG pH ABG pO2 ABG HCO3 ABG O2 Saturation ABG Base Excess ABG Hemoglobin Oxyhemoglobin Sodium Potassium 3.1 L Chloride Carbon Dioxide BUN 26 H Creatinine 0.5 L Glucose 125 H POC Glucose 155 H Lactic Acid Calcium Magnesium Iron TIBC Ferritin AST ALT Lactate Dehydrogenase Troponin T C-Reactive Protein Total Protein Albumin Prealbumin Cholesterol LDL Cholesterol Direct HDL Cholesterol Urine WBC (Auto) Vancomycin Trough Coronavirus (PCR) Crossmatch 07/09/19 07/09/19 07/09/19 05:55 12:22 17:50 WBC RBC Hgb Hct MCV MCH MCHC RDW Plt Count Lymph % (Auto) [place] % (Auto) Lymph # Logan # Baso # Seg Neutrophils % Seg Neuts % (Manual) Lymphocytes % (Manual) Monocytes % (Manual) Basophils % (Manual) Nucleated RBC % Seg Neutrophils # Seg Neutrophils # Man Lymphocytes # (Manual) Monocytes # (Manual) Eosinophils # (Manual) Basophils # (Manual) PT INR D-Dimer ABG pH ABG pO2 62.8 L ABG HCO3 ABG O2 Saturation ABG Base Excess ABG Hemoglobin 6.1 L Oxyhemoglobin 93.9 L Sodium Potassium Chloride Carbon Dioxide BUN Creatinine Glucose POC Glucose 115 H 133 H Lactic Acid Calcium Magnesium Iron TIBC Ferritin AST ALT Lactate Dehydrogenase Troponin T C-Reactive Protein Total Protein Albumin Prealbumin Cholesterol LDL Cholesterol Direct HDL Cholesterol Urine WBC (Auto) Vancomycin Trough Coronavirus (PCR) Crossmatch 07/10/19 07/10/19 07/10/19 00:38 04:00 04:00 WBC RBC Hgb Hct MCV MCH MCHC RDW Plt Count Lymph % (Auto) [place] % (Auto) Lymph # [place] # Baso # Seg Neutrophils % Seg Neuts % (Manual) Lymphocytes % (Manual) Monocytes % (Manual) Basophils % (Manual) Nucleated RBC % Seg Neutrophils # Seg Neutrophils # Man Lymphocytes # (Manual) Monocytes # (Manual) Eosinophils # (Manual) Basophils # (Manual) PT INR D-Dimer ABG pH ABG pO2 ABG HCO3 ABG O2 Saturation ABG Base Excess ABG Hemoglobin Oxyhemoglobin Sodium Potassium Chloride 107.9 H Carbon Dioxide BUN 26 H Creatinine 0.4 L Glucose 137 H POC Glucose 122 H Lactic Acid Calcium Magnesium 1.50 L Iron TIBC Ferritin AST ALT Lactate Dehydrogenase 277 H Troponin T C-Reactive Protein 15.10 H Total Protein Albumin Prealbumin Cholesterol LDL Cholesterol Direct HDL Cholesterol Urine WBC (Auto) Vancomycin Trough Coronavirus (PCR) Crossmatch 07/10/19 07/10/19 07/10/19 04:07 05:21 17:25 WBC RBC Hgb Hct MCV MCH MCHC RDW Plt Count Lymph % (Auto) [place] % (Auto) Lymph # [place] # Baso # Seg Neutrophils % Seg Neuts % (Manual) Lymphocytes % (Manual) Monocytes % (Manual) Basophils % (Manual) Nucleated RBC % Seg Neutrophils # Seg Neutrophils # Man Lymphocytes # (Manual) Monocytes # (Manual) Eosinophils # (Manual) Basophils # (Manual) PT INR D-Dimer ABG pH ABG pO2 65.6 L ABG HCO3 26.3 H ABG O2 Saturation ABG Base Excess ABG Hemoglobin 6.7 L Oxyhemoglobin Sodium Potassium Chloride Carbon Dioxide BUN Creatinine Glucose POC Glucose 144 H 113 H Lactic Acid Calcium Magnesium Iron TIBC Ferritin AST ALT Lactate Dehydrogenase Troponin T C-Reactive Protein Total Protein Albumin Prealbumin Cholesterol LDL Cholesterol Direct HDL Cholesterol Urine WBC (Auto) Vancomycin Trough Coronavirus (PCR) Crossmatch 07/11/19 07/11/19 07/11/19 00:07 05:14 05:25 WBC RBC Hgb Hct MCV MCH MCHC RDW Plt Count Lymph % (Auto) [place] % (Auto) Lymph # [place] # Baso # Seg Neutrophils % Seg Neuts % (Manual) Lymphocytes % (Manual) Monocytes % (Manual) Basophils % (Manual) Nucleated RBC % Seg Neutrophils # Seg Neutrophils # Man Lymphocytes # (Manual) Monocytes # (Manual) Eosinophils # (Manual) Basophils # (Manual) PT INR D-Dimer ABG pH ABG pO2 ABG HCO3 ABG O2 Saturation ABG Base Excess ABG Hemoglobin 5.8 L Oxyhemoglobin Sodium Potassium Chloride 108.0 H Carbon Dioxide BUN 26 H Creatinine 0.4 L Glucose 110 H POC Glucose 121 H Lactic Acid Calcium Magnesium Iron TIBC Ferritin AST ALT Lactate Dehydrogenase Troponin T C-Reactive Protein Total Protein Albumin Prealbumin Cholesterol LDL Cholesterol Direct HDL Cholesterol Urine WBC (Auto) Vancomycin Trough Coronavirus (PCR) Crossmatch 07/11/19 07/11/19 07/11/19 12:27 18:00 23:42 WBC RBC Hgb Hct MCV MCH MCHC RDW Plt Count Lymph % (Auto) [place] % (Auto) Lymph # [place] # Baso # Seg Neutrophils % Seg Neuts % (Manual) Lymphocytes % (Manual) Monocytes % (Manual) Basophils % (Manual) Nucleated RBC % Seg Neutrophils # Seg Neutrophils # Man Lymphocytes # (Manual) Monocytes # (Manual) Eosinophils # (Manual) Basophils # (Manual) PT INR D-Dimer ABG pH ABG pO2 ABG HCO3 ABG O2 Saturation ABG Base Excess ABG Hemoglobin Oxyhemoglobin Sodium Potassium Chloride Carbon Dioxide BUN Creatinine Glucose POC Glucose 158 H 141 H 142 H Lactic Acid Calcium Magnesium Iron TIBC Ferritin AST ALT Lactate Dehydrogenase Troponin T C-Reactive Protein Total Protein Albumin Prealbumin Cholesterol LDL Cholesterol Direct HDL Cholesterol Urine WBC (Auto) Vancomycin Trough Coronavirus (PCR) Crossmatch 07/12/19 07/12/19 07/12/19 04:46 04:46 05:23 WBC 23.6 H RBC 2.51 L Hgb 6.7 L Hct 20.8 L MCV 83 L MCH 27 L MCHC RDW 20.3 H Plt Count Lymph % (Auto) [place] % (Auto) Lymph # [place] # Baso # Seg Neutrophils % Seg Neuts % (Manual) 94.0 H Lymphocytes % (Manual) 4.0 L Monocytes % (Manual) Basophils % (Manual) Nucleated RBC % Seg Neutrophils # Seg Neutrophils # Man 22.2 H Lymphocytes # (Manual) 0.9 L Monocytes # (Manual) Eosinophils # (Manual) Basophils # (Manual) PT INR D-Dimer ABG pH ABG pO2 ABG HCO3 ABG O2 Saturation ABG Base Excess ABG Hemoglobin Oxyhemoglobin Sodium Potassium Chloride 107.1 H Carbon Dioxide BUN 25 H Creatinine 0.4 L Glucose 122 H POC Glucose 118 H Lactic Acid Calcium Magnesium Iron TIBC Ferritin AST ALT Lactate Dehydrogenase Troponin T C-Reactive Protein Total Protein Albumin Prealbumin Cholesterol LDL Cholesterol Direct HDL Cholesterol Urine WBC (Auto) Vancomycin Trough Coronavirus (PCR) Crossmatch 07/12/19 07/12/19 07/12/19 08:49 11:36 18:15 WBC RBC Hgb Hct MCV MCH MCHC RDW Plt Count Lymph % (Auto) [place] % (Auto) Lymph # [place] # Baso # Seg Neutrophils % Seg Neuts % (Manual) Lymphocytes % (Manual) Monocytes % (Manual) Basophils % (Manual) Nucleated RBC % Seg Neutrophils # Seg Neutrophils # Man Lymphocytes # (Manual) Monocytes # (Manual) Eosinophils # (Manual) Basophils # (Manual) PT INR D-Dimer ABG pH ABG pO2 ABG HCO3 ABG O2 Saturation ABG Base Excess ABG Hemoglobin Oxyhemoglobin Sodium Potassium Chloride Carbon Dioxide BUN Creatinine Glucose POC Glucose 124 H 110 H Lactic Acid Calcium Magnesium Iron TIBC Ferritin AST ALT Lactate Dehydrogenase Troponin T C-Reactive Protein Total Protein Albumin Prealbumin Cholesterol LDL Cholesterol Direct HDL Cholesterol Urine WBC (Auto) Vancomycin Trough Coronavirus (PCR) Crossmatch See Detail 07/12/19 07/13/19 07/13/19 23:16 05:26 06:50 WBC 23.9 H RBC 2.58 L Hgb 6.9 L Hct 21.5 L MCV 83 L MCH 27 L MCHC RDW 19.0 H Plt Count Lymph % (Auto) [place] % (Auto) Lymph # [place] # Baso # Seg Neutrophils % Seg Neuts % (Manual) 96.0 H Lymphocytes % (Manual) 3.0 L Monocytes % (Manual) Basophils % (Manual) Nucleated RBC % Seg Neutrophils # Seg Neutrophils # Man 22.9 H Lymphocytes # (Manual) 0.7 L Monocytes # (Manual) Eosinophils # (Manual) Basophils # (Manual) PT INR D-Dimer ABG pH ABG pO2 ABG HCO3 ABG O2 Saturation ABG Base Excess ABG Hemoglobin Oxyhemoglobin Sodium Potassium Chloride Carbon Dioxide BUN Creatinine Glucose POC Glucose 108 H 126 H Lactic Acid Calcium Magnesium Iron TIBC Ferritin AST ALT Lactate Dehydrogenase Troponin T C-Reactive Protein Total Protein Albumin Prealbumin Cholesterol LDL Cholesterol Direct HDL Cholesterol Urine WBC (Auto) Vancomycin Trough Coronavirus (PCR) Crossmatch 07/13/19 07/13/19 07/13/19 06:50 12:38 18:05 WBC RBC Hgb Hct MCV MCH MCHC RDW Plt Count Lymph % (Auto) [place] % (Auto) Lymph # [place] # Baso # Seg Neutrophils % Seg Neuts % (Manual) Lymphocytes % (Manual) Monocytes % (Manual) Basophils % (Manual) Nucleated RBC % Seg Neutrophils # Seg Neutrophils # Man Lymphocytes # (Manual) Monocytes # (Manual) Eosinophils # (Manual) Basophils # (Manual) PT INR D-Dimer ABG pH ABG pO2 ABG HCO3 ABG O2 Saturation ABG Base Excess ABG Hemoglobin Oxyhemoglobin Sodium Potassium Chloride Carbon Dioxide BUN 33 H Creatinine 0.5 L Glucose 136 H POC Glucose 164 H 145 H Lactic Acid Calcium Magnesium Iron TIBC Ferritin AST ALT Lactate Dehydrogenase Troponin T C-Reactive Protein Total Protein Albumin Prealbumin Cholesterol LDL Cholesterol Direct HDL Cholesterol Urine WBC (Auto) Vancomycin Trough Coronavirus (PCR) Crossmatch 07/13/19 07/14/19 07/14/19 18:30 00:21 04:40 WBC 22.9 H RBC 2.45 L Hgb 6.6 L Hct 21.1 L MCV MCH 27 L MCHC 31 L RDW 19.2 H Plt Count Lymph % (Auto) [place] % (Auto) Lymph # [place] # Baso # Seg Neutrophils % Seg Neuts % (Manual) 91.0 H Lymphocytes % (Manual) 7.0 L Monocytes % (Manual) Basophils % (Manual) Nucleated RBC % Seg Neutrophils # Seg Neutrophils # Man 20.8 H Lymphocytes # (Manual) Monocytes # (Manual) Eosinophils # (Manual) Basophils # (Manual) PT INR D-Dimer ABG pH ABG pO2 58.1 L ABG HCO3 ABG O2 Saturation 88.7 L ABG Base Excess ABG Hemoglobin 7.8 L Oxyhemoglobin 86.8 L Sodium Potassium Chloride Carbon Dioxide BUN Creatinine Glucose POC Glucose 118 H Lactic Acid Calcium Magnesium Iron TIBC Ferritin AST ALT Lactate Dehydrogenase Troponin T C-Reactive Protein Total Protein Albumin Prealbumin Cholesterol LDL Cholesterol Direct HDL Cholesterol Urine WBC (Auto) Vancomycin Trough Coronavirus (PCR) Crossmatch 07/14/19 07/14/19 07/14/19 04:40 05:38 05:45 WBC RBC Hgb Hct MCV MCH MCHC RDW Plt Count Lymph % (Auto) [place] % (Auto) Lymph # [place] # Baso # Seg Neutrophils % Seg Neuts % (Manual) Lymphocytes % (Manual) Monocytes % (Manual) Basophils % (Manual) Nucleated RBC % Seg Neutrophils # Seg Neutrophils # Man Lymphocytes # (Manual) Monocytes # (Manual) Eosinophils # (Manual) Basophils # (Manual) PT INR D-Dimer ABG pH 7.230 L ABG pO2 72.1 L ABG HCO3 ABG O2 Saturation 89.3 L ABG Base Excess -2.7 L ABG Hemoglobin 6.7 L Oxyhemoglobin 87.7 L Sodium Potassium Chloride 107.4 H Carbon Dioxide BUN 45 H Creatinine Glucose 101 H POC Glucose 154 H Lactic Acid Calcium Magnesium Iron TIBC Ferritin AST ALT Lactate Dehydrogenase Troponin T C-Reactive Protein Total Protein Albumin Prealbumin Cholesterol LDL Cholesterol Direct HDL Cholesterol Urine WBC (Auto) Vancomycin Trough Coronavirus (PCR) Crossmatch 07/14/19 07/14/19 07/14/19 12:25 18:20 19:01 WBC 22.4 H RBC 2.70 L Hgb 7.5 L Hct 23.3 L MCV MCH MCHC RDW 19.5 H Plt Count Lymph % (Auto) [place] % (Auto) Lymph # [place] # Baso # Seg Neutrophils % Seg Neuts % (Manual) Lymphocytes % (Manual) Monocytes % (Manual) Basophils % (Manual) Nucleated RBC % Seg Neutrophils # Seg Neutrophils # Man Lymphocytes # (Manual) Monocytes # (Manual) Eosinophils # (Manual) Basophils # (Manual) PT INR D-Dimer ABG pH ABG pO2 ABG HCO3 ABG O2 Saturation ABG Base Excess ABG Hemoglobin Oxyhemoglobin Sodium Potassium Chloride Carbon Dioxide BUN Creatinine Glucose POC Glucose 136 H 131 H Lactic Acid Calcium Magnesium Iron TIBC Ferritin AST ALT Lactate Dehydrogenase Troponin T C-Reactive Protein Total Protein Albumin Prealbumin Cholesterol LDL Cholesterol Direct HDL Cholesterol Urine WBC (Auto) Vancomycin Trough Coronavirus (PCR) Crossmatch 07/15/19 07/15/19 07/15/19 00:17 04:35 05:18 WBC 20.6 H RBC 2.41 L Hgb 6.8 L Hct 20.7 L MCV MCH MCHC RDW 20.2 H Plt Count Lymph % (Auto) [place] % (Auto) Lymph # [place] # Baso # Seg Neutrophils % Seg Neuts % (Manual) 92.0 H Lymphocytes % (Manual) 5.0 L Monocytes % (Manual) Basophils % (Manual) Nucleated RBC % Seg Neutrophils # Seg Neutrophils # Man 19.0 H Lymphocytes # (Manual) 1.0 L Monocytes # (Manual) Eosinophils # (Manual) Basophils # (Manual) PT INR D-Dimer ABG pH 7.342 L ABG pO2 ABG HCO3 ABG O2 Saturation ABG Base Excess -3.1 L ABG Hemoglobin 7.2 L Oxyhemoglobin 94.9 L Sodium Potassium Chloride Carbon Dioxide BUN Creatinine Glucose POC Glucose 116 H Lactic Acid Calcium Magnesium Iron TIBC Ferritin AST ALT Lactate Dehydrogenase Troponin T C-Reactive Protein Total Protein Albumin Prealbumin Cholesterol LDL Cholesterol Direct HDL Cholesterol Urine WBC (Auto) Vancomycin Trough Coronavirus (PCR) Crossmatch 07/15/19 07/15/19 07/15/19 05:18 05:57 11:28 WBC RBC Hgb Hct MCV MCH MCHC RDW Plt Count Lymph % (Auto) [place] % (Auto) Lymph # [place] # Baso # Seg Neutrophils % Seg Neuts % (Manual) Lymphocytes % (Manual) Monocytes % (Manual) Basophils % (Manual) Nucleated RBC % Seg Neutrophils # Seg Neutrophils # Man Lymphocytes # (Manual) Monocytes # (Manual) Eosinophils # (Manual) Basophils # (Manual) PT INR D-Dimer ABG pH ABG pO2 ABG HCO3 ABG O2 Saturation ABG Base Excess ABG Hemoglobin Oxyhemoglobin Sodium Potassium Chloride Carbon Dioxide 20 L BUN 59 H Creatinine Glucose 140 H POC Glucose 139 H 117 H Lactic Acid Calcium Magnesium Iron TIBC Ferritin AST ALT Lactate Dehydrogenase Troponin T C-Reactive Protein Total Protein Albumin Prealbumin Cholesterol LDL Cholesterol Direct HDL Cholesterol Urine WBC (Auto) Vancomycin Trough Coronavirus (PCR) Crossmatch 07/15/19 07/16/19 07/16/19 18:13 00:06 03:43 WBC RBC Hgb Hct MCV MCH MCHC RDW Plt Count Lymph % (Auto) [place] % (Auto) Lymph # [place] # Baso # Seg Neutrophils % Seg Neuts % (Manual) Lymphocytes % (Manual) Monocytes % (Manual) Basophils % (Manual) Nucleated RBC % Seg Neutrophils # Seg Neutrophils # Man Lymphocytes # (Manual) Monocytes # (Manual) Eosinophils # (Manual) Basophils # (Manual) PT INR D-Dimer ABG pH 7.344 L ABG pO2 68.6 L ABG HCO3 ABG O2 Saturation ABG Base Excess -3.5 L ABG Hemoglobin 6.1 L Oxyhemoglobin 93.3 L Sodium Potassium Chloride Carbon Dioxide BUN Creatinine Glucose POC Glucose 114 H 119 H Lactic Acid Calcium Magnesium Iron TIBC Ferritin AST ALT Lactate Dehydrogenase Troponin T C-Reactive Protein Total Protein Albumin Prealbumin Cholesterol LDL Cholesterol Direct HDL Cholesterol Urine WBC (Auto) Vancomycin Trough Coronavirus (PCR) Crossmatch 07/16/19 07/16/19 07/16/19 04:41 04:41 12:09 WBC 19.6 H RBC 2.81 L Hgb 7.7 L Hct 24.0 L MCV MCH 27 L MCHC RDW 19.4 H Plt Count 514 H Lymph % (Auto) 6.7 L [place] % (Auto) Lymph # Logan # 1.0 H Baso # Seg Neutrophils % 87.0 H Seg Neuts % (Manual) Lymphocytes % (Manual) Monocytes % (Manual) Basophils % (Manual) Nucleated RBC % Seg Neutrophils # 17.0 H Seg Neutrophils # Man Lymphocytes # (Manual) Monocytes # (Manual) Eosinophils # (Manual) Basophils # (Manual) PT INR D-Dimer ABG pH ABG pO2 ABG HCO3 ABG O2 Saturation ABG Base Excess ABG Hemoglobin Oxyhemoglobin Sodium Potassium 5.9 H Chloride Carbon Dioxide 21 L BUN 73 H Creatinine 2.0 H Glucose POC Glucose 141 H Lactic Acid Calcium Magnesium Iron TIBC Ferritin AST ALT Lactate Dehydrogenase Troponin T C-Reactive Protein Total Protein Albumin Prealbumin Cholesterol LDL Cholesterol Direct HDL Cholesterol Urine WBC (Auto) Vancomycin Trough Coronavirus (PCR) Crossmatch 07/16/19 07/16/19 07/17/19 16:19 17:45 00:16 WBC RBC Hgb Hct MCV MCH MCHC RDW Plt Count Lymph % (Auto) [place] % (Auto) Lymph # [place] # Baso # Seg Neutrophils % Seg Neuts % (Manual) Lymphocytes % (Manual) Monocytes % (Manual) Basophils % (Manual) Nucleated RBC % Seg Neutrophils # Seg Neutrophils # Man Lymphocytes # (Manual) Monocytes # (Manual) Eosinophils # (Manual) Basophils # (Manual) PT INR D-Dimer ABG pH ABG pO2 ABG HCO3 ABG O2 Saturation ABG Base Excess ABG Hemoglobin Oxyhemoglobin Sodium Potassium 5.1 H Chloride Carbon Dioxide 20 L BUN 72 H Creatinine 1.7 H Glucose 128 H POC Glucose 181 H 164 H Lactic Acid Calcium Magnesium Iron TIBC Ferritin AST ALT Lactate Dehydrogenase Troponin T C-Reactive Protein Total Protein Albumin Prealbumin Cholesterol LDL Cholesterol Direct HDL Cholesterol Urine WBC (Auto) Vancomycin Trough Coronavirus (PCR) Crossmatch 07/17/19 07/17/19 07/17/19 04:20 04:39 04:39 WBC 16.1 H RBC 2.92 L Hgb 8.0 L Hct 25.5 L MCV MCH MCHC 31 L RDW 19.7 H Plt Count 564 H Lymph % (Auto) 3.6 L [place] % (Auto) 7.4 H Lymph # 0.6 L [place] # 1.2 H Baso # Seg Neutrophils % 87.5 H Seg Neuts % (Manual) Lymphocytes % (Manual) Monocytes % (Manual) Basophils % (Manual) Nucleated RBC % Seg Neutrophils # 14.1 H Seg Neutrophils # Man Lymphocytes # (Manual) Monocytes # (Manual) Eosinophils # (Manual) Basophils # (Manual) PT INR D-Dimer ABG pH 7.231 L ABG pO2 95.3 H ABG HCO3 ABG O2 Saturation ABG Base Excess -5.0 L ABG Hemoglobin 7.9 L Oxyhemoglobin 94.8 L Sodium Potassium Chloride 107.8 H Carbon Dioxide 21 L BUN 68 H Creatinine Glucose POC Glucose Lactic Acid Calcium Magnesium Iron TIBC Ferritin AST ALT Lactate Dehydrogenase Troponin T C-Reactive Protein Total Protein Albumin Prealbumin Cholesterol LDL Cholesterol Direct HDL Cholesterol Urine WBC (Auto) Vancomycin Trough Coronavirus (PCR) Crossmatch 07/17/19 07/17/19 07/17/19 05:28 12:11 18:48 WBC RBC Hgb Hct MCV MCH MCHC RDW Plt Count Lymph % (Auto) [place] % (Auto) Lymph # [place] # Baso # Seg Neutrophils % Seg Neuts % (Manual) Lymphocytes % (Manual) Monocytes % (Manual) Basophils % (Manual) Nucleated RBC % Seg Neutrophils # Seg Neutrophils # Man Lymphocytes # (Manual) Monocytes # (Manual) Eosinophils # (Manual) Basophils # (Manual) PT INR D-Dimer ABG pH ABG pO2 ABG HCO3 ABG O2 Saturation ABG Base Excess ABG Hemoglobin Oxyhemoglobin Sodium Potassium Chloride Carbon Dioxide BUN Creatinine Glucose POC Glucose 121 H 125 H 174 H Lactic Acid Calcium Magnesium Iron TIBC Ferritin AST ALT Lactate Dehydrogenase Troponin T C-Reactive Protein Total Protein Albumin Prealbumin Cholesterol LDL Cholesterol Direct HDL Cholesterol Urine WBC (Auto) Vancomycin Trough Coronavirus (PCR) Crossmatch 07/17/19 07/17/19 07/18/19 19:55 23:57 02:30 WBC RBC Hgb Hct MCV MCH MCHC RDW Plt Count Lymph % (Auto) [place] % (Auto) Lymph # [place] # Baso # Seg Neutrophils % Seg Neuts % (Manual) Lymphocytes % (Manual) Monocytes % (Manual) Basophils % (Manual) Nucleated RBC % Seg Neutrophils # Seg Neutrophils # Man Lymphocytes # (Manual) Monocytes # (Manual) Eosinophils # (Manual) Basophils # (Manual) PT INR D-Dimer ABG pH 7.344 L 7.294 L ABG pO2 78.5 L 119.2 H ABG HCO3 ABG O2 Saturation ABG Base Excess -3.3 L -2.6 L ABG Hemoglobin 8.6 L 8.1 L Oxyhemoglobin 94.8 L Sodium Potassium Chloride Carbon Dioxide BUN Creatinine Glucose POC Glucose 148 H Lactic Acid Calcium Magnesium Iron TIBC Ferritin AST ALT Lactate Dehydrogenase Troponin T C-Reactive Protein Total Protein Albumin Prealbumin Cholesterol LDL Cholesterol Direct HDL Cholesterol Urine WBC (Auto) Vancomycin Trough Coronavirus (PCR) Crossmatch 07/18/19 07/18/19 07/18/19 04:49 05:22 05:22 WBC 15.9 H RBC 3.00 L Hgb 8.1 L Hct 26.0 L MCV MCH 27 L MCHC 31 L RDW 19.4 H Plt Count 733 H Lymph % (Auto) 6.3 L [place] % (Auto) 7.4 H Lymph # 1.0 L [place] # 1.2 H Baso # 0.2 H Seg Neutrophils % 83.8 H Seg Neuts % (Manual) Lymphocytes % (Manual) Monocytes % (Manual) Basophils % (Manual) Nucleated RBC % Seg Neutrophils # 13.3 H Seg Neutrophils # Man Lymphocytes # (Manual) Monocytes # (Manual) Eosinophils # (Manual) Basophils # (Manual) PT INR D-Dimer ABG pH ABG pO2 ABG HCO3 ABG O2 Saturation ABG Base Excess ABG Hemoglobin Oxyhemoglobin Sodium Potassium Chloride 110.6 H Carbon Dioxide BUN 61 H Creatinine Glucose 109 H POC Glucose 116 H Lactic Acid Calcium Magnesium Iron TIBC Ferritin AST ALT Lactate Dehydrogenase Troponin T C-Reactive Protein Total Protein Albumin Prealbumin Cholesterol LDL Cholesterol Direct HDL Cholesterol Urine WBC (Auto) Vancomycin Trough Coronavirus (PCR) Crossmatch 07/18/19 07/18/19 07/18/19 12:23 18:06 22:20 WBC RBC Hgb Hct MCV MCH MCHC RDW Plt Count Lymph % (Auto) [place] % (Auto) Lymph # [place] # Baso # Seg Neutrophils % Seg Neuts % (Manual) Lymphocytes % (Manual) Monocytes % (Manual) Basophils % (Manual) Nucleated RBC % Seg Neutrophils # Seg Neutrophils # Man Lymphocytes # (Manual) Monocytes # (Manual) Eosinophils # (Manual) Basophils # (Manual) PT INR D-Dimer ABG pH 7.338 L ABG pO2 135.1 H ABG HCO3 ABG O2 Saturation ABG Base Excess ABG Hemoglobin 9.2 L Oxyhemoglobin Sodium Potassium Chloride Carbon Dioxide BUN Creatinine Glucose POC Glucose 114 H 113 H Lactic Acid Calcium Magnesium Iron TIBC Ferritin AST ALT Lactate Dehydrogenase Troponin T C-Reactive Protein Total Protein Albumin Prealbumin Cholesterol LDL Cholesterol Direct HDL Cholesterol Urine WBC (Auto) Vancomycin Trough Coronavirus (PCR) Crossmatch 07/18/19 07/19/19 07/19/19 23:33 03:45 05:18 WBC RBC Hgb Hct MCV MCH MCHC RDW Plt Count Lymph % (Auto) [place] % (Auto) Lymph # [place] # Baso # Seg Neutrophils % Seg Neuts % (Manual) Lymphocytes % (Manual) Monocytes % (Manual) Basophils % (Manual) Nucleated RBC % Seg Neutrophils # Seg Neutrophils # Man Lymphocytes # (Manual) Monocytes # (Manual) Eosinophils # (Manual) Basophils # (Manual) PT INR D-Dimer ABG pH 7.342 L ABG pO2 95.0 H ABG HCO3 ABG O2 Saturation ABG Base Excess ABG Hemoglobin 8.5 L Oxyhemoglobin Sodium Potassium Chloride Carbon Dioxide BUN Creatinine Glucose POC Glucose 125 H 111 H Lactic Acid Calcium Magnesium Iron TIBC Ferritin AST ALT Lactate Dehydrogenase Troponin T C-Reactive Protein Total Protein Albumin Prealbumin Cholesterol LDL Cholesterol Direct HDL Cholesterol Urine WBC (Auto) Vancomycin Trough Coronavirus (PCR) Crossmatch 07/19/19 07/19/19 07/19/19 08:45 08:45 11:47 WBC 15.9 H RBC 3.31 L Hgb 9.1 L Hct 28.4 L MCV MCH 27 L MCHC RDW 19.1 H Plt Count 858 H Lymph % (Auto) 4.9 L [place] % (Auto) 8.1 H Lymph # 0.8 L [place] # 1.3 H Baso # Seg Neutrophils % 85.5 H Seg Neuts % (Manual) Lymphocytes % (Manual) Monocytes % (Manual) Basophils % (Manual) Nucleated RBC % Seg Neutrophils # 13.6 H Seg Neutrophils # Man Lymphocytes # (Manual) Monocytes # (Manual) Eosinophils # (Manual) Basophils # (Manual) PT INR D-Dimer ABG pH ABG pO2 ABG HCO3 ABG O2 Saturation ABG Base Excess ABG Hemoglobin Oxyhemoglobin Sodium Potassium Chloride 111.6 H Carbon Dioxide BUN 50 H Creatinine 0.7 L Glucose 118 H POC Glucose 114 H Lactic Acid Calcium Magnesium Iron TIBC Ferritin AST ALT Lactate Dehydrogenase Troponin T C-Reactive Protein Total Protein Albumin Prealbumin Cholesterol LDL Cholesterol Direct HDL Cholesterol Urine WBC (Auto) Vancomycin Trough Coronavirus (PCR) Crossmatch 07/19/19 07/19/19 07/20/19 18:25 23:44 04:39 WBC RBC Hgb Hct MCV MCH MCHC RDW Plt Count Lymph % (Auto) [place] % (Auto) Lymph # [place] # Baso # Seg Neutrophils % Seg Neuts % (Manual) Lymphocytes % (Manual) Monocytes % (Manual) Basophils % (Manual) Nucleated RBC % Seg Neutrophils # Seg Neutrophils # Man Lymphocytes # (Manual) Monocytes # (Manual) Eosinophils # (Manual) Basophils # (Manual) PT INR D-Dimer ABG pH ABG pO2 ABG HCO3 ABG O2 Saturation ABG Base Excess ABG Hemoglobin Oxyhemoglobin Sodium Potassium Chloride 110.3 H Carbon Dioxide BUN 44 H Creatinine 0.6 L Glucose 120 H POC Glucose 115 H 117 H Lactic Acid Calcium Magnesium Iron TIBC Ferritin AST ALT Lactate Dehydrogenase Troponin T C-Reactive Protein Total Protein Albumin Prealbumin Cholesterol LDL Cholesterol Direct HDL Cholesterol Urine WBC (Auto) Vancomycin Trough Coronavirus (PCR) Crossmatch 07/20/19 07/21/19 07/21/19 05:30 11:59 17:40 WBC RBC Hgb Hct MCV MCH MCHC RDW Plt Count Lymph % (Auto) [place] % (Auto) Lymph # [place] # Baso # Seg Neutrophils % Seg Neuts % (Manual) Lymphocytes % (Manual) Monocytes % (Manual) Basophils % (Manual) Nucleated RBC % Seg Neutrophils # Seg Neutrophils # Man Lymphocytes # (Manual) Monocytes # (Manual) Eosinophils # (Manual) Basophils # (Manual) PT INR D-Dimer ABG pH ABG pO2 ABG HCO3 ABG O2 Saturation ABG Base Excess ABG Hemoglobin Oxyhemoglobin Sodium Potassium Chloride Carbon Dioxide BUN Creatinine Glucose POC Glucose 131 H 122 H 125 H Lactic Acid Calcium Magnesium Iron TIBC Ferritin AST ALT Lactate Dehydrogenase Troponin T C-Reactive Protein Total Protein Albumin Prealbumin Cholesterol LDL Cholesterol Direct HDL Cholesterol Urine WBC (Auto) Vancomycin Trough Coronavirus (PCR) Crossmatch 07/22/19 07/22/19 07/22/19 05:38 05:38 12:29 WBC 12.6 H RBC 3.19 L Hgb 8.9 L Hct 27.5 L MCV MCH MCHC RDW 18.9 H Plt Count 1101 H* Lymph % (Auto) [place] % (Auto) 12.2 H Lymph # [place] # 1.5 H Baso # Seg Neutrophils % 72.8 H Seg Neuts % (Manual) 76.0 H Lymphocytes % (Manual) 7.0 L Monocytes % (Manual) 14.0 H Basophils % (Manual) Nucleated RBC % 1.0 H Seg Neutrophils # 9.2 H Seg Neutrophils # Man 9.6 H Lymphocytes # (Manual) 0.9 L Monocytes # (Manual) 1.8 H Eosinophils # (Manual) Basophils # (Manual) PT INR D-Dimer ABG pH ABG pO2 ABG HCO3 ABG O2 Saturation ABG Base Excess ABG Hemoglobin Oxyhemoglobin Sodium Potassium 3.4 L Chloride Carbon Dioxide BUN 29 H Creatinine 0.5 L Glucose POC Glucose 116 H Lactic Acid Calcium Magnesium Iron TIBC Ferritin AST ALT Lactate Dehydrogenase Troponin T C-Reactive Protein Total Protein Albumin Prealbumin Cholesterol LDL Cholesterol Direct HDL Cholesterol Urine WBC (Auto) Vancomycin Trough Coronavirus (PCR) Crossmatch 07/22/19 07/22/19 07/23/19 18:20 23:51 04:52 WBC RBC Hgb Hct MCV MCH MCHC RDW Plt Count Lymph % (Auto) [place] % (Auto) Lymph # [place] # Baso # Seg Neutrophils % Seg Neuts % (Manual) Lymphocytes % (Manual) Monocytes % (Manual) Basophils % (Manual) Nucleated RBC % Seg Neutrophils # Seg Neutrophils # Man Lymphocytes # (Manual) Monocytes # (Manual) Eosinophils # (Manual) Basophils # (Manual) PT INR D-Dimer ABG pH ABG pO2 ABG HCO3 ABG O2 Saturation ABG Base Excess ABG Hemoglobin Oxyhemoglobin Sodium Potassium Chloride Carbon Dioxide BUN 24 H Creatinine 0.4 L Glucose POC Glucose 107 H 110 H Lactic Acid Calcium Magnesium Iron TIBC Ferritin AST ALT Lactate Dehydrogenase Troponin T C-Reactive Protein Total Protein Albumin Prealbumin Cholesterol LDL Cholesterol Direct HDL Cholesterol Urine WBC (Auto) Vancomycin Trough Coronavirus (PCR) Crossmatch 07/23/19 07/23/19 07/24/19 06:00 23:15 04:40 WBC RBC Hgb Hct MCV MCH MCHC RDW Plt Count Lymph % (Auto) [place] % (Auto) Lymph # [place] # Baso # Seg Neutrophils % Seg Neuts % (Manual) Lymphocytes % (Manual) Monocytes % (Manual) Basophils % (Manual) Nucleated RBC % Seg Neutrophils # Seg Neutrophils # Man Lymphocytes # (Manual) Monocytes # (Manual) Eosinophils # (Manual) Basophils # (Manual) PT INR D-Dimer ABG pH ABG pO2 73.5 L ABG HCO3 27.0 H 28.5 H ABG O2 Saturation 94.5 L ABG Base Excess ABG Hemoglobin 9.4 L 8.9 L Oxyhemoglobin 94.0 L 92.7 L Sodium Potassium Chloride Carbon Dioxide BUN Creatinine Glucose POC Glucose 117 H Lactic Acid Calcium Magnesium Iron TIBC Ferritin AST ALT Lactate Dehydrogenase Troponin T C-Reactive Protein Total Protein Albumin Prealbumin Cholesterol LDL Cholesterol Direct HDL Cholesterol Urine WBC (Auto) Vancomycin Trough Coronavirus (PCR) Crossmatch 05/08/0707/24/19 07/25/19 05:25 12:06 00:16 WBC RBC Hgb Hct MCV MCH MCHC RDW Plt Count Lymph % (Auto) [place] % (Auto) Lymph # [place] # Baso # Seg Neutrophils % Seg Neuts % (Manual) Lymphocytes % (Manual) Monocytes % (Manual) Basophils % (Manual) Nucleated RBC % Seg Neutrophils # Seg Neutrophils # Man Lymphocytes # (Manual) Monocytes # (Manual) Eosinophils # (Manual) Basophils # (Manual) PT INR D-Dimer ABG pH ABG pO2 ABG HCO3 ABG O2 Saturation ABG Base Excess ABG Hemoglobin Oxyhemoglobin Sodium Potassium Chloride Carbon Dioxide BUN Creatinine Glucose POC Glucose 114 H 108 H 106 H Lactic Acid Calcium Magnesium Iron TIBC Ferritin AST ALT Lactate Dehydrogenase Troponin T C-Reactive Protein Total Protein Albumin Prealbumin Cholesterol LDL Cholesterol Direct HDL Cholesterol Urine WBC (Auto) Vancomycin Trough Coronavirus (PCR) Crossmatch 07/25/19 07/25/19 07/25/19 05:14 05:14 05:17 WBC 17.8 H RBC 3.32 L Hgb 9.2 L Hct 28.6 L MCV MCH MCHC RDW 19.9 H Plt Count 994 H Lymph % (Auto) [place] % (Auto) Lymph # [place] # Baso # Seg Neutrophils % Seg Neuts % (Manual) 82.0 H Lymphocytes % (Manual) 5.0 L Monocytes % (Manual) Basophils % (Manual) Nucleated RBC % Seg Neutrophils # Seg Neutrophils # Man 14.6 H Lymphocytes # (Manual) 0.9 L Monocytes # (Manual) 1.2 H Eosinophils # (Manual) Basophils # (Manual) PT INR D-Dimer ABG pH ABG pO2 ABG HCO3 ABG O2 Saturation ABG Base Excess ABG Hemoglobin Oxyhemoglobin Sodium Potassium Chloride Carbon Dioxide BUN Creatinine 0.4 L Glucose 110 H POC Glucose 107 H Lactic Acid Calcium Magnesium Iron TIBC Ferritin AST ALT Lactate Dehydrogenase Troponin T C-Reactive Protein Total Protein Albumin Prealbumin Cholesterol LDL Cholesterol Direct HDL Cholesterol Urine WBC (Auto) Vancomycin Trough Coronavirus (PCR) Crossmatch 07/25/19 07/25/19 07/26/19 11:55 23:49 06:01 WBC RBC Hgb Hct MCV MCH MCHC RDW Plt Count Lymph % (Auto) [place] % (Auto) Lymph # [place] # Baso # Seg Neutrophils % Seg Neuts % (Manual) Lymphocytes % (Manual) Monocytes % (Manual) Basophils % (Manual) Nucleated RBC % Seg Neutrophils # Seg Neutrophils # Man Lymphocytes # (Manual) Monocytes # (Manual) Eosinophils # (Manual) Basophils # (Manual) PT INR D-Dimer ABG pH ABG pO2 ABG HCO3 ABG O2 Saturation ABG Base Excess ABG Hemoglobin Oxyhemoglobin Sodium Potassium Chloride Carbon Dioxide BUN Creatinine Glucose POC Glucose 123 H 118 H 106 H Lactic Acid Calcium Magnesium Iron TIBC Ferritin AST ALT Lactate Dehydrogenase Troponin T C-Reactive Protein Total Protein Albumin Prealbumin Cholesterol LDL Cholesterol Direct HDL Cholesterol Urine WBC (Auto) Vancomycin Trough Coronavirus (PCR) Crossmatch 07/26/19 07/27/19 07/27/19 17:02 00:28 05:16 WBC RBC Hgb Hct MCV MCH MCHC RDW Plt Count Lymph % (Auto) [place] % (Auto) Lymph # [place] # Baso # Seg Neutrophils % Seg Neuts % (Manual) Lymphocytes % (Manual) Monocytes % (Manual) Basophils % (Manual) Nucleated RBC % Seg Neutrophils # Seg Neutrophils # Man Lymphocytes # (Manual) Monocytes # (Manual) Eosinophils # (Manual) Basophils # (Manual) PT INR D-Dimer ABG pH ABG pO2 63.4 L ABG HCO3 31.3 H ABG O2 Saturation 92.7 L ABG Base Excess 6.3 H ABG Hemoglobin 7.6 L Oxyhemoglobin 90.9 L Sodium Potassium Chloride Carbon Dioxide BUN Creatinine Glucose POC Glucose 116 H 158 H Lactic Acid Calcium Magnesium Iron TIBC Ferritin AST ALT Lactate Dehydrogenase Troponin T C-Reactive Protein Total Protein Albumin Prealbumin Cholesterol LDL Cholesterol Direct HDL Cholesterol Urine WBC (Auto) Vancomycin Trough Coronavirus (PCR) Crossmatch 07/28/19 07/28/19 07/28/19 10:13 10:13 23:54 WBC 18.5 H RBC 3.20 L Hgb 8.8 L Hct 26.8 L MCV MCH 27 L MCHC RDW 19.9 H Plt Count 730 H Lymph % (Auto) [place] % (Auto) Lymph # [place] # Baso # Seg Neutrophils % Seg Neuts % (Manual) Lymphocytes % (Manual) Monocytes % (Manual) Basophils % (Manual) Nucleated RBC % Seg Neutrophils # Seg Neutrophils # Man Lymphocytes # (Manual) Monocytes # (Manual) Eosinophils # (Manual) Basophils # (Manual) PT INR D-Dimer ABG pH ABG pO2 ABG HCO3 ABG O2 Saturation ABG Base Excess ABG Hemoglobin Oxyhemoglobin Sodium Potassium 3.2 L Chloride 97.5 L Carbon Dioxide 31 H BUN Creatinine 0.5 L Glucose POC Glucose 120 H Lactic Acid Calcium Magnesium Iron TIBC Ferritin AST ALT Lactate Dehydrogenase Troponin T C-Reactive Protein Total Protein Albumin Prealbumin Cholesterol LDL Cholesterol Direct HDL Cholesterol Urine WBC (Auto) Vancomycin Trough Coronavirus (PCR) Crossmatch 07/29/19 07/29/19 07/29/19 11:57 17:43 Unknown WBC RBC Hgb Hct MCV MCH MCHC RDW Plt Count Lymph % (Auto) [place] % (Auto) Lymph # [place] # Baso # Seg Neutrophils % Seg Neuts % (Manual) Lymphocytes % (Manual) Monocytes % (Manual) Basophils % (Manual) Nucleated RBC % Seg Neutrophils # Seg Neutrophils # Man Lymphocytes # (Manual) Monocytes # (Manual) Eosinophils # (Manual) Basophils # (Manual) PT INR D-Dimer ABG pH ABG pO2 ABG HCO3 ABG O2 Saturation ABG Base Excess ABG Hemoglobin Oxyhemoglobin Sodium Potassium Chloride Carbon Dioxide BUN Creatinine Glucose POC Glucose 112 H Lactic Acid Calcium Magnesium Iron TIBC Ferritin AST ALT Lactate Dehydrogenase Troponin T C-Reactive Protein Total Protein Albumin Prealbumin Cholesterol LDL Cholesterol Direct HDL Cholesterol Urine WBC (Auto) 63.0 H Vancomycin Trough Coronavirus (PCR) Positive A Crossmatch 07/30/19 07/30/19 07/30/19 00:20 04:35 04:35 WBC 24.3 H RBC 3.12 L Hgb 8.5 L Hct 26.3 L MCV MCH 27 L MCHC RDW 20.2 H Plt Count 550 H Lymph % (Auto) [place] % (Auto) Lymph # [place] # Baso # Seg Neutrophils % Seg Neuts % (Manual) Lymphocytes % (Manual) Monocytes % (Manual) Basophils % (Manual) Nucleated RBC % Seg Neutrophils # Seg Neutrophils # Man Lymphocytes # (Manual) Monocytes # (Manual) Eosinophils # (Manual) Basophils # (Manual) PT INR D-Dimer ABG pH ABG pO2 ABG HCO3 ABG O2 Saturation ABG Base Excess ABG Hemoglobin Oxyhemoglobin Sodium Potassium 3.0 L Chloride 96.3 L Carbon Dioxide 32 H BUN Creatinine 0.5 L Glucose POC Glucose 106 H Lactic Acid Calcium Magnesium Iron TIBC Ferritin AST ALT Lactate Dehydrogenase Troponin T C-Reactive Protein Total Protein Albumin Prealbumin Cholesterol LDL Cholesterol Direct HDL Cholesterol Urine WBC (Auto) Vancomycin Trough Coronavirus (PCR) Crossmatch 07/31/19 07/31/19 07/31/19 04:42 04:42 11:33 WBC 23.8 H RBC 3.10 L Hgb 8.4 L Hct 26.1 L MCV MCH 27 L MCHC RDW 19.6 H Plt Count 561 H Lymph % (Auto) [place] % (Auto) Lymph # [place] # Baso # Seg Neutrophils % Seg Neuts % (Manual) Lymphocytes % (Manual) Monocytes % (Manual) Basophils % (Manual) Nucleated RBC % Seg Neutrophils # Seg Neutrophils # Man Lymphocytes # (Manual) Monocytes # (Manual) Eosinophils # (Manual) Basophils # (Manual) PT INR D-Dimer ABG pH ABG pO2 ABG HCO3 ABG O2 Saturation ABG Base Excess ABG Hemoglobin Oxyhemoglobin Sodium 135 L Potassium Chloride 93.9 L Carbon Dioxide 32 H BUN Creatinine 0.4 L Glucose POC Glucose 116 H Lactic Acid Calcium Magnesium Iron TIBC Ferritin AST ALT Lactate Dehydrogenase Troponin T C-Reactive Protein Total Protein Albumin 1.6 L Prealbumin 0.037 L Cholesterol LDL Cholesterol Direct HDL Cholesterol Urine WBC (Auto) Vancomycin Trough Coronavirus (PCR) Crossmatch 07/31/19 08/01/19 08/01/19 23:33 04:57 04:57 WBC 26.7 H RBC 3.12 L Hgb 8.5 L Hct 26.3 L MCV MCH 27 L MCHC RDW 19.2 H Plt Count 602 H Lymph % (Auto) [place] % (Auto) Lymph # [place] # Baso # Seg Neutrophils % Seg Neuts % (Manual) 93.0 H Lymphocytes % (Manual) 2.0 L Monocytes % (Manual) Basophils % (Manual) Nucleated RBC % Seg Neutrophils # Seg Neutrophils # Man 24.8 H Lymphocytes # (Manual) 0.5 L Monocytes # (Manual) 1.1 H Eosinophils # (Manual) Basophils # (Manual) PT INR D-Dimer ABG pH ABG pO2 ABG HCO3 ABG O2 Saturation ABG Base Excess ABG Hemoglobin Oxyhemoglobin Sodium 132 L Potassium Chloride 93.8 L Carbon Dioxide 31 H BUN Creatinine 0.3 L Glucose POC Glucose 148 H Lactic Acid Calcium 8.1 L Magnesium Iron TIBC Ferritin AST ALT Lactate Dehydrogenase Troponin T C-Reactive Protein Total Protein Albumin Prealbumin Cholesterol LDL Cholesterol Direct HDL Cholesterol Urine WBC (Auto) Vancomycin Trough Coronavirus (PCR) Crossmatch 08/01/19 08/02/19 08/02/19 12:16 00:22 05:24 WBC RBC Hgb Hct MCV MCH MCHC RDW Plt Count Lymph % (Auto) [place] % (Auto) Lymph # [place] # Baso # Seg Neutrophils % Seg Neuts % (Manual) Lymphocytes % (Manual) Monocytes % (Manual) Basophils % (Manual) Nucleated RBC % Seg Neutrophils # Seg Neutrophils # Man Lymphocytes # (Manual) Monocytes # (Manual) Eosinophils # (Manual) Basophils # (Manual) PT INR D-Dimer ABG pH ABG pO2 ABG HCO3 ABG O2 Saturation ABG Base Excess ABG Hemoglobin Oxyhemoglobin Sodium Potassium Chloride Carbon Dioxide BUN Creatinine Glucose POC Glucose 120 H 119 H 113 H Lactic Acid Calcium Magnesium Iron TIBC Ferritin AST ALT Lactate Dehydrogenase Troponin T C-Reactive Protein Total Protein Albumin Prealbumin Cholesterol LDL Cholesterol Direct HDL Cholesterol Urine WBC (Auto) Vancomycin Trough Coronavirus (PCR) Crossmatch 08/03/19 08/03/19 08/03/19 05:20 12:01 23:48 WBC RBC Hgb Hct MCV MCH MCHC RDW Plt Count Lymph % (Auto) [place] % (Auto) Lymph # [place] # Baso # Seg Neutrophils % Seg Neuts % (Manual) Lymphocytes % (Manual) Monocytes % (Manual) Basophils % (Manual) Nucleated RBC % Seg Neutrophils # Seg Neutrophils # Man Lymphocytes # (Manual) Monocytes # (Manual) Eosinophils # (Manual) Basophils # (Manual) PT INR D-Dimer ABG pH ABG pO2 ABG HCO3 ABG O2 Saturation ABG Base Excess ABG Hemoglobin Oxyhemoglobin Sodium Potassium Chloride Carbon Dioxide BUN Creatinine Glucose POC Glucose 118 H 106 H 120 H Lactic Acid Calcium Magnesium Iron TIBC Ferritin AST ALT Lactate Dehydrogenase Troponin T C-Reactive Protein Total Protein Albumin Prealbumin Cholesterol LDL Cholesterol Direct HDL Cholesterol Urine WBC (Auto) Vancomycin Trough Coronavirus (PCR) Crossmatch 08/04/19 08/04/19 08/04/19 05:38 05:38 06:29 WBC 26.1 H RBC 2.77 L Hgb 7.5 L Hct 23.2 L MCV MCH 27 L MCHC RDW 19.2 H Plt Count 648 H Lymph % (Auto) [place] % (Auto) Lymph # [place] # Baso # Seg Neutrophils % Seg Neuts % (Manual) 90.5 H Lymphocytes % (Manual) 3.5 L Monocytes % (Manual) Basophils % (Manual) Nucleated RBC % Seg Neutrophils # Seg Neutrophils # Man 23.6 H Lymphocytes # (Manual) 0.9 L Monocytes # (Manual) 1.2 H Eosinophils # (Manual) Basophils # (Manual) PT INR D-Dimer ABG pH ABG pO2 ABG HCO3 ABG O2 Saturation ABG Base Excess ABG Hemoglobin Oxyhemoglobin Sodium 132 L Potassium 3.4 L D Chloride 92.7 L Carbon Dioxide 33 H BUN Creatinine 0.2 L Glucose POC Glucose 108 H Lactic Acid Calcium 8.1 L Magnesium Iron TIBC Ferritin AST ALT Lactate Dehydrogenase Troponin T C-Reactive Protein Total Protein Albumin Prealbumin Cholesterol LDL Cholesterol Direct HDL Cholesterol Urine WBC (Auto) Vancomycin Trough Coronavirus (PCR) Crossmatch 08/04/19 08/05/19 08/05/19 12:30 04:58 04:58 WBC 21.0 H RBC 2.63 L Hgb 7.2 L Hct 21.9 L MCV 83 L MCH 27 L MCHC RDW 18.9 H Plt Count 691 H Lymph % (Auto) [place] % (Auto) Lymph # [place] # Baso # Seg Neutrophils % Seg Neuts % (Manual) 86.0 H Lymphocytes % (Manual) 3.0 L Monocytes % (Manual) 10.0 H Basophils % (Manual) Nucleated RBC % Seg Neutrophils # Seg Neutrophils # Man 18.1 H Lymphocytes # (Manual) 0.6 L Monocytes # (Manual) 2.1 H Eosinophils # (Manual) Basophils # (Manual) PT INR D-Dimer ABG pH ABG pO2 ABG HCO3 ABG O2 Saturation ABG Base Excess ABG Hemoglobin Oxyhemoglobin Sodium 134 L Potassium 3.2 L Chloride 93.2 L Carbon Dioxide 34 H BUN 8 L Creatinine 0.3 L Glucose POC Glucose 138 H Lactic Acid Calcium 8.1 L Magnesium Iron TIBC Ferritin AST ALT Lactate Dehydrogenase Troponin T C-Reactive Protein Total Protein Albumin Prealbumin Cholesterol LDL Cholesterol Direct HDL Cholesterol Urine WBC (Auto) Vancomycin Trough Coronavirus (PCR) Crossmatch 08/05/19 08/05/19 08/05/19 11:53 17:57 23:58 WBC RBC Hgb Hct MCV MCH MCHC RDW Plt Count Lymph % (Auto) [place] % (Auto) Lymph # [place] # Baso # Seg Neutrophils % Seg Neuts % (Manual) Lymphocytes % (Manual) Monocytes % (Manual) Basophils % (Manual) Nucleated RBC % Seg Neutrophils # Seg Neutrophils # Man Lymphocytes # (Manual) Monocytes # (Manual) Eosinophils # (Manual) Basophils # (Manual) PT INR D-Dimer ABG pH ABG pO2 ABG HCO3 ABG O2 Saturation ABG Base Excess ABG Hemoglobin Oxyhemoglobin Sodium Potassium Chloride Carbon Dioxide BUN Creatinine Glucose POC Glucose 106 H 111 H 116 H Lactic Acid Calcium Magnesium Iron TIBC Ferritin AST ALT Lactate Dehydrogenase Troponin T C-Reactive Protein Total Protein Albumin Prealbumin Cholesterol LDL Cholesterol Direct HDL Cholesterol Urine WBC (Auto) Vancomycin Trough Coronavirus (PCR) Crossmatch 08/06/19 08/06/19 08/06/19 04:11 04:11 06:04 WBC 20.8 H RBC 2.80 L Hgb 7.6 L Hct 23.5 L MCV MCH 27 L MCHC RDW 19.0 H Plt Count 723 H Lymph % (Auto) [place] % (Auto) Lymph # [place] # Baso # Seg Neutrophils % Seg Neuts % (Manual) 88.0 H Lymphocytes % (Manual) 3.0 L Monocytes % (Manual) Basophils % (Manual) Nucleated RBC % Seg Neutrophils # Seg Neutrophils # Man 18.3 H Lymphocytes # (Manual) 0.6 L Monocytes # (Manual) Eosinophils # (Manual) Basophils # (Manual) 0.2 H PT INR D-Dimer ABG pH ABG pO2 ABG HCO3 ABG O2 Saturation ABG Base Excess ABG Hemoglobin Oxyhemoglobin Sodium Potassium 3.4 L Chloride 95.2 L Carbon Dioxide 32 H BUN Creatinine 0.3 L Glucose POC Glucose 108 H Lactic Acid Calcium 8.2 L Magnesium Iron TIBC Ferritin AST ALT Lactate Dehydrogenase Troponin T C-Reactive Protein Total Protein Albumin Prealbumin Cholesterol LDL Cholesterol Direct HDL Cholesterol Urine WBC (Auto) Vancomycin Trough Coronavirus (PCR) Crossmatch 08/06/19 08/06/19 08/07/19 12:23 17:13 00:21 WBC RBC Hgb Hct MCV MCH MCHC RDW Plt Count Lymph % (Auto) [place] % (Auto) Lymph # [place] # Baso # Seg Neutrophils % Seg Neuts % (Manual) Lymphocytes % (Manual) Monocytes % (Manual) Basophils % (Manual) Nucleated RBC % Seg Neutrophils # Seg Neutrophils # Man Lymphocytes # (Manual) Monocytes # (Manual) Eosinophils # (Manual) Basophils # (Manual) PT INR D-Dimer ABG pH ABG pO2 ABG HCO3 ABG O2 Saturation ABG Base Excess ABG Hemoglobin Oxyhemoglobin Sodium Potassium Chloride Carbon Dioxide BUN Creatinine Glucose POC Glucose 112 H 132 H 147 H Lactic Acid Calcium Magnesium Iron TIBC Ferritin AST ALT Lactate Dehydrogenase Troponin T C-Reactive Protein Total Protein Albumin Prealbumin Cholesterol LDL Cholesterol Direct HDL Cholesterol Urine WBC (Auto) Vancomycin Trough Coronavirus (PCR) Crossmatch 08/07/19 08/07/19 08/07/19 05:16 05:23 05:23 WBC 30.3 H RBC 2.69 L Hgb 7.1 L Hct 22.2 L MCV 83 L MCH 27 L MCHC RDW 19.1 H Plt Count 650 H Lymph % (Auto) [place] % (Auto) Lymph # [place] # Baso # Seg Neutrophils % Seg Neuts % (Manual) 88.0 H Lymphocytes % (Manual) 5.0 L Monocytes % (Manual) Basophils % (Manual) Nucleated RBC % Seg Neutrophils # Seg Neutrophils # Man 26.7 H Lymphocytes # (Manual) Monocytes # (Manual) 2.1 H Eosinophils # (Manual) Basophils # (Manual) PT INR D-Dimer ABG pH ABG pO2 ABG HCO3 ABG O2 Saturation ABG Base Excess ABG Hemoglobin Oxyhemoglobin Sodium 135 L Potassium 3.4 L Chloride 95.4 L Carbon Dioxide 32 H BUN Creatinine 0.4 L Glucose 120 H POC Glucose 120 H Lactic Acid Calcium 7.7 L Magnesium Iron TIBC Ferritin AST ALT Lactate Dehydrogenase Troponin T C-Reactive Protein Total Protein Albumin Prealbumin Cholesterol LDL Cholesterol Direct HDL Cholesterol Urine WBC (Auto) Vancomycin Trough Coronavirus (PCR) Crossmatch 08/07/19 08/07/19 08/07/19 10:24 10:24 11:10 WBC RBC Hgb Hct MCV MCH MCHC RDW Plt Count Lymph % (Auto) [place] % (Auto) Lymph # [place] # Baso # Seg Neutrophils % Seg Neuts % (Manual) Lymphocytes % (Manual) Monocytes % (Manual) Basophils % (Manual) Nucleated RBC % Seg Neutrophils # Seg Neutrophils # Man Lymphocytes # (Manual) Monocytes # (Manual) Eosinophils # (Manual) Basophils # (Manual) PT INR D-Dimer 1808.06 H ABG pH ABG pO2 73.3 L ABG HCO3 33.9 H ABG O2 Saturation ABG Base Excess 9.0 H ABG Hemoglobin 6.3 L Oxyhemoglobin 94.3 L Sodium Potassium Chloride Carbon Dioxide BUN Creatinine Glucose POC Glucose Lactic Acid Calcium Magnesium Iron TIBC Ferritin AST ALT Lactate Dehydrogenase Troponin T C-Reactive Protein 11.10 H Total Protein Albumin Prealbumin Cholesterol LDL Cholesterol Direct HDL Cholesterol Urine WBC (Auto) Vancomycin Trough Coronavirus (PCR) Crossmatch 08/07/19 08/08/19 08/08/19 12:01 04:41 04:41 WBC 22.1 H RBC 2.82 L Hgb 7.7 L Hct 23.6 L MCV MCH 27 L MCHC RDW 19.1 H Plt Count 722 H Lymph % (Auto) [place] % (Auto) Lymph # [place] # Baso # Seg Neutrophils % Seg Neuts % (Manual) 90.0 H Lymphocytes % (Manual) 3.0 L Monocytes % (Manual) Basophils % (Manual) Nucleated RBC % Seg Neutrophils # Seg Neutrophils # Man 19.9 H Lymphocytes # (Manual) 0.7 L Monocytes # (Manual) 1.3 H Eosinophils # (Manual) Basophils # (Manual) PT INR D-Dimer ABG pH ABG pO2 ABG HCO3 ABG O2 Saturation ABG Base Excess ABG Hemoglobin Oxyhemoglobin Sodium 136 L Potassium Chloride 97.8 L Carbon Dioxide BUN Creatinine 0.3 L Glucose 105 H POC Glucose 130 H Lactic Acid Calcium 7.8 L Magnesium Iron TIBC Ferritin AST ALT Lactate Dehydrogenase Troponin T C-Reactive Protein Total Protein Albumin Prealbumin Cholesterol LDL Cholesterol Direct HDL Cholesterol Urine WBC (Auto) Vancomycin Trough Coronavirus (PCR) Crossmatch 08/08/19 08/08/19 08/09/19 11:46 18:35 00:12 WBC RBC Hgb Hct MCV MCH MCHC RDW Plt Count Lymph % (Auto) [place] % (Auto) Lymph # [place] # Baso # Seg Neutrophils % Seg Neuts % (Manual) Lymphocytes % (Manual) Monocytes % (Manual) Basophils % (Manual) Nucleated RBC % Seg Neutrophils # Seg Neutrophils # Man Lymphocytes # (Manual) Monocytes # (Manual) Eosinophils # (Manual) Basophils # (Manual) PT INR D-Dimer ABG pH ABG pO2 ABG HCO3 ABG O2 Saturation ABG Base Excess ABG Hemoglobin Oxyhemoglobin Sodium Potassium Chloride Carbon Dioxide BUN Creatinine Glucose POC Glucose 117 H 117 H 117 H Lactic Acid Calcium Magnesium Iron TIBC Ferritin AST ALT Lactate Dehydrogenase Troponin T C-Reactive Protein Total Protein Albumin Prealbumin Cholesterol LDL Cholesterol Direct HDL Cholesterol Urine WBC (Auto) Vancomycin Trough Coronavirus (PCR) Crossmatch 08/09/19 08/09/19 08/09/19 05:33 12:22 17:48 WBC RBC Hgb Hct MCV MCH MCHC RDW Plt Count Lymph % (Auto) [place] % (Auto) Lymph # [place] # Baso # Seg Neutrophils % Seg Neuts % (Manual) Lymphocytes % (Manual) Monocytes % (Manual) Basophils % (Manual) Nucleated RBC % Seg Neutrophils # Seg Neutrophils # Man Lymphocytes # (Manual) Monocytes # (Manual) Eosinophils # (Manual) Basophils # (Manual) PT INR D-Dimer ABG pH ABG pO2 ABG HCO3 ABG O2 Saturation ABG Base Excess ABG Hemoglobin Oxyhemoglobin Sodium Potassium Chloride Carbon Dioxide BUN Creatinine Glucose POC Glucose 119 H 133 H 123 H Lactic Acid Calcium Magnesium Iron TIBC Ferritin AST ALT Lactate Dehydrogenase Troponin T C-Reactive Protein Total Protein Albumin Prealbumin Cholesterol LDL Cholesterol Direct HDL Cholesterol Urine WBC (Auto) Vancomycin Trough Coronavirus (PCR) Crossmatch 08/09/19 08/09/19 08/10/19 17:59 18:15 00:02 WBC RBC Hgb 6.7 L Hct 20.4 L MCV MCH MCHC RDW Plt Count Lymph % (Auto) [place] % (Auto) Lymph # [place] # Baso # Seg Neutrophils % Seg Neuts % (Manual) Lymphocytes % (Manual) Monocytes % (Manual) Basophils % (Manual) Nucleated RBC % Seg Neutrophils # Seg Neutrophils # Man Lymphocytes # (Manual) Monocytes # (Manual) Eosinophils # (Manual) Basophils # (Manual) PT INR D-Dimer ABG pH ABG pO2 ABG HCO3 ABG O2 Saturation ABG Base Excess ABG Hemoglobin Oxyhemoglobin Sodium Potassium Chloride Carbon Dioxide BUN Creatinine Glucose POC Glucose 124 H Lactic Acid Calcium Magnesium Iron TIBC Ferritin AST ALT Lactate Dehydrogenase Troponin T C-Reactive Protein Total Protein Albumin Prealbumin Cholesterol LDL Cholesterol Direct HDL Cholesterol Urine WBC (Auto) Vancomycin Trough Coronavirus (PCR) Crossmatch See Detail 08/10/19 08/10/19 08/10/19 05:47 08:00 08:00 WBC 16.9 H RBC 2.94 L Hgb 8.2 L Hct 24.9 L MCV MCH MCHC RDW 17.0 H Plt Count 661 H Lymph % (Auto) [place] % (Auto) Lymph # [place] # Baso # Seg Neutrophils % Seg Neuts % (Manual) Lymphocytes % (Manual) Monocytes % (Manual) Basophils % (Manual) Nucleated RBC % Seg Neutrophils # Seg Neutrophils # Man Lymphocytes # (Manual) Monocytes # (Manual) Eosinophils # (Manual) Basophils # (Manual) PT INR D-Dimer ABG pH ABG pO2 ABG HCO3 ABG O2 Saturation ABG Base Excess ABG Hemoglobin Oxyhemoglobin Sodium Potassium Chloride Carbon Dioxide BUN Creatinine 0.3 L Glucose 116 H POC Glucose 148 H Lactic Acid Calcium 7.7 L Magnesium Iron TIBC Ferritin AST ALT Lactate Dehydrogenase Troponin T C-Reactive Protein Total Protein Albumin Prealbumin Cholesterol LDL Cholesterol Direct HDL Cholesterol Urine WBC (Auto) Vancomycin Trough Coronavirus (PCR) Crossmatch 08/10/19 08/10/19 08/10/19 12:38 18:06 23:56 WBC RBC Hgb Hct MCV MCH MCHC RDW Plt Count Lymph % (Auto) [place] % (Auto) Lymph # [place] # Baso # Seg Neutrophils % Seg Neuts % (Manual) Lymphocytes % (Manual) Monocytes % (Manual) Basophils % (Manual) Nucleated RBC % Seg Neutrophils # Seg Neutrophils # Man Lymphocytes # (Manual) Monocytes # (Manual) Eosinophils # (Manual) Basophils # (Manual) PT INR D-Dimer ABG pH ABG pO2 ABG HCO3 ABG O2 Saturation ABG Base Excess ABG Hemoglobin Oxyhemoglobin Sodium Potassium Chloride Carbon Dioxide BUN Creatinine Glucose POC Glucose 113 H 126 H 115 H Lactic Acid Calcium Magnesium Iron TIBC Ferritin AST ALT Lactate Dehydrogenase Troponin T C-Reactive Protein Total Protein Albumin Prealbumin Cholesterol LDL Cholesterol Direct HDL Cholesterol Urine WBC (Auto) Vancomycin Trough Coronavirus (PCR) Crossmatch 08/10/19 08/11/19 08/12/19 Unknown 18:10 03:30 WBC 14.4 H RBC 2.58 L Hgb 7.4 L Hct 22.1 L MCV MCH MCHC RDW 17.4 H Plt Count 786 H Lymph % (Auto) [place] % (Auto) Lymph # [place] # Baso # Seg Neutrophils % Seg Neuts % (Manual) Lymphocytes % (Manual) Monocytes % (Manual) Basophils % (Manual) Nucleated RBC % Seg Neutrophils # Seg Neutrophils # Man Lymphocytes # (Manual) Monocytes # (Manual) Eosinophils # (Manual) Basophils # (Manual) PT INR D-Dimer ABG pH ABG pO2 ABG HCO3 ABG O2 Saturation ABG Base Excess ABG Hemoglobin Oxyhemoglobin Sodium Potassium Chloride Carbon Dioxide BUN Creatinine Glucose POC Glucose 106 H Lactic Acid Calcium Magnesium Iron TIBC Ferritin AST ALT Lactate Dehydrogenase Troponin T C-Reactive Protein Total Protein Albumin Prealbumin Cholesterol LDL Cholesterol Direct HDL Cholesterol Urine WBC (Auto) Vancomycin Trough Coronavirus (PCR) Positive A Crossmatch 08/12/19 08/12/19 08/13/19 03:30 12:08 05:25 WBC RBC Hgb Hct MCV MCH MCHC RDW Plt Count Lymph % (Auto) [place] % (Auto) Lymph # [place] # Baso # Seg Neutrophils % Seg Neuts % (Manual) Lymphocytes % (Manual) Monocytes % (Manual) Basophils % (Manual) Nucleated RBC % Seg Neutrophils # Seg Neutrophils # Man Lymphocytes # (Manual) Monocytes # (Manual) Eosinophils # (Manual) Basophils # (Manual) PT INR D-Dimer ABG pH ABG pO2 ABG HCO3 ABG O2 Saturation ABG Base Excess ABG Hemoglobin Oxyhemoglobin Sodium Potassium Chloride Carbon Dioxide BUN 7 L Creatinine 0.3 L Glucose 117 H POC Glucose 112 H 126 H Lactic Acid Calcium 7.8 L Magnesium Iron TIBC Ferritin AST ALT Lactate Dehydrogenase Troponin T C-Reactive Protein Total Protein Albumin Prealbumin Cholesterol LDL Cholesterol Direct HDL Cholesterol Urine WBC (Auto) Vancomycin Trough Coronavirus (PCR) Crossmatch 08/13/19 08/13/19 08/13/19 11:36 17:10 19:06 WBC RBC Hgb Hct MCV MCH MCHC RDW Plt Count Lymph % (Auto) [place] % (Auto) Lymph # [place] # Baso # Seg Neutrophils % Seg Neuts % (Manual) Lymphocytes % (Manual) Monocytes % (Manual) Basophils % (Manual) Nucleated RBC % Seg Neutrophils # Seg Neutrophils # Man Lymphocytes # (Manual) Monocytes # (Manual) Eosinophils # (Manual) Basophils # (Manual) PT INR D-Dimer ABG pH ABG pO2 105.0 H ABG HCO3 28.5 H ABG O2 Saturation ABG Base Excess 3.5 H ABG Hemoglobin 7.8 L Oxyhemoglobin Sodium Potassium Chloride Carbon Dioxide BUN Creatinine Glucose POC Glucose 143 H 107 H Lactic Acid Calcium Magnesium Iron TIBC Ferritin AST ALT Lactate Dehydrogenase Troponin T C-Reactive Protein Total Protein Albumin Prealbumin Cholesterol LDL Cholesterol Direct HDL Cholesterol Urine WBC (Auto) Vancomycin Trough Coronavirus (PCR) Crossmatch 08/13/19 08/14/19 08/14/19 23:23 05:00 05:00 WBC 14.3 H RBC 2.76 L Hgb 7.8 L Hct 23.9 L MCV MCH MCHC RDW 18.7 H Plt Count 896 H Lymph % (Auto) [place] % (Auto) Lymph # [place] # Baso # Seg Neutrophils % Seg Neuts % (Manual) Lymphocytes % (Manual) Monocytes % (Manual) Basophils % (Manual) Nucleated RBC % Seg Neutrophils # Seg Neutrophils # Man Lymphocytes # (Manual) Monocytes # (Manual) Eosinophils # (Manual) Basophils # (Manual) PT INR D-Dimer ABG pH ABG pO2 ABG HCO3 ABG O2 Saturation ABG Base Excess ABG Hemoglobin Oxyhemoglobin Sodium Potassium Chloride Carbon Dioxide BUN 6 L Creatinine 0.3 L Glucose POC Glucose 125 H Lactic Acid Calcium 8.2 L Magnesium Iron TIBC Ferritin AST ALT Lactate Dehydrogenase Troponin T C-Reactive Protein Total Protein Albumin Prealbumin Cholesterol LDL Cholesterol Direct HDL Cholesterol Urine WBC (Auto) Vancomycin Trough Coronavirus (PCR) Crossmatch 08/14/19 08/15/19 08/15/19 05:07 00:25 05:42 WBC RBC Hgb Hct MCV MCH MCHC RDW Plt Count Lymph % (Auto) [place] % (Auto) Lymph # [place] # Baso # Seg Neutrophils % Seg Neuts % (Manual) Lymphocytes % (Manual) Monocytes % (Manual) Basophils % (Manual) Nucleated RBC % Seg Neutrophils # Seg Neutrophils # Man Lymphocytes # (Manual) Monocytes # (Manual) Eosinophils # (Manual) Basophils # (Manual) PT INR D-Dimer ABG pH ABG pO2 ABG HCO3 ABG O2 Saturation ABG Base Excess ABG Hemoglobin Oxyhemoglobin Sodium Potassium Chloride Carbon Dioxide BUN Creatinine Glucose POC Glucose 128 H 117 H 115 H Lactic Acid Calcium Magnesium Iron TIBC Ferritin AST ALT Lactate Dehydrogenase Troponin T C-Reactive Protein Total Protein Albumin Prealbumin Cholesterol LDL Cholesterol Direct HDL Cholesterol Urine WBC (Auto) Vancomycin Trough Coronavirus (PCR) Crossmatch 08/15/19 08/15/19 08/15/19 06:10 06:10 06:10 WBC 11.6 H RBC 2.68 L Hgb 7.7 L Hct 23.3 L MCV MCH MCHC RDW 19.2 H Plt Count 885 H Lymph % (Auto) [place] % (Auto) Lymph # [place] # Baso # Seg Neutrophils % Seg Neuts % (Manual) Lymphocytes % (Manual) Monocytes % (Manual) Basophils % (Manual) Nucleated RBC % Seg Neutrophils # Seg Neutrophils # Man Lymphocytes # (Manual) Monocytes # (Manual) Eosinophils # (Manual) Basophils # (Manual) PT INR D-Dimer ABG pH ABG pO2 ABG HCO3 ABG O2 Saturation ABG Base Excess ABG Hemoglobin Oxyhemoglobin Sodium Potassium Chloride Carbon Dioxide BUN 6 L Creatinine 0.3 L Glucose 107 H POC Glucose Lactic Acid Calcium 8.2 L Magnesium 1.50 L Iron TIBC Ferritin AST ALT Lactate Dehydrogenase Troponin T C-Reactive Protein Total Protein Albumin Prealbumin Cholesterol LDL Cholesterol Direct HDL Cholesterol Urine WBC (Auto) Vancomycin Trough Coronavirus (PCR) Crossmatch 08/15/19 08/16/19 08/16/19 12:12 00:05 05:00 WBC 13.3 H RBC 2.87 L Hgb 8.1 L Hct 24.9 L MCV MCH MCHC RDW 18.7 H Plt Count 962 H Lymph % (Auto) [place] % (Auto) Lymph # [place] # Baso # Seg Neutrophils % Seg Neuts % (Manual) Lymphocytes % (Manual) Monocytes % (Manual) Basophils % (Manual) Nucleated RBC % Seg Neutrophils # Seg Neutrophils # Man Lymphocytes # (Manual) Monocytes # (Manual) Eosinophils # (Manual) Basophils # (Manual) PT INR D-Dimer ABG pH ABG pO2 ABG HCO3 ABG O2 Saturation ABG Base Excess ABG Hemoglobin Oxyhemoglobin Sodium Potassium Chloride Carbon Dioxide BUN Creatinine Glucose POC Glucose 112 H 111 H Lactic Acid Calcium Magnesium Iron TIBC Ferritin AST ALT Lactate Dehydrogenase Troponin T C-Reactive Protein Total Protein Albumin Prealbumin Cholesterol LDL Cholesterol Direct HDL Cholesterol Urine WBC (Auto) Vancomycin Trough Coronavirus (PCR) Crossmatch 08/16/19 08/16/19 08/16/19 05:00 05:00 23:35 WBC RBC Hgb Hct MCV MCH MCHC RDW Plt Count Lymph % (Auto) [place] % (Auto) Lymph # [place] # Baso # Seg Neutrophils % Seg Neuts % (Manual) Lymphocytes % (Manual) Monocytes % (Manual) Basophils % (Manual) Nucleated RBC % Seg Neutrophils # Seg Neutrophils # Man Lymphocytes # (Manual) Monocytes # (Manual) Eosinophils # (Manual) Basophils # (Manual) PT INR D-Dimer ABG pH ABG pO2 ABG HCO3 ABG O2 Saturation ABG Base Excess ABG Hemoglobin Oxyhemoglobin Sodium 135 L Potassium Chloride Carbon Dioxide BUN 6 L Creatinine 0.3 L Glucose POC Glucose 108 H Lactic Acid Calcium 8.2 L Magnesium Iron TIBC Ferritin AST ALT Lactate Dehydrogenase Troponin T C-Reactive Protein 2.70 H Total Protein Albumin 2.1 L Prealbumin Cholesterol LDL Cholesterol Direct HDL Cholesterol Urine WBC (Auto) Vancomycin Trough Coronavirus (PCR) Crossmatch 08/17/19 08/17/19 08/17/19 05:15 20:20 23:42 WBC RBC Hgb Hct MCV MCH MCHC RDW Plt Count Lymph % (Auto) [place] % (Auto) Lymph # [place] # Baso # Seg Neutrophils % Seg Neuts % (Manual) Lymphocytes % (Manual) Monocytes % (Manual) Basophils % (Manual) Nucleated RBC % Seg Neutrophils # Seg Neutrophils # Man Lymphocytes # (Manual) Monocytes # (Manual) Eosinophils # (Manual) Basophils # (Manual) PT INR D-Dimer ABG pH ABG pO2 ABG HCO3 27.8 H ABG O2 Saturation ABG Base Excess ABG Hemoglobin 11.4 L Oxyhemoglobin 94.6 L Sodium Potassium Chloride Carbon Dioxide BUN Creatinine Glucose POC Glucose 138 H 132 H Lactic Acid Calcium Magnesium Iron TIBC Ferritin AST ALT Lactate Dehydrogenase Troponin T C-Reactive Protein Total Protein Albumin Prealbumin Cholesterol LDL Cholesterol Direct HDL Cholesterol Urine WBC (Auto) Vancomycin Trough Coronavirus (PCR) Crossmatch 08/18/19 08/18/19 08/18/19 06:00 06:00 12:02 WBC 19.7 H RBC 3.30 L Hgb 9.3 L Hct 28.5 L MCV MCH MCHC RDW 18.9 H Plt Count 923 H Lymph % (Auto) [place] % (Auto) Lymph # [place] # Baso # Seg Neutrophils % Seg Neuts % (Manual) Lymphocytes % (Manual) Monocytes % (Manual) Basophils % (Manual) Nucleated RBC % Seg Neutrophils # Seg Neutrophils # Man Lymphocytes # (Manual) Monocytes # (Manual) Eosinophils # (Manual) Basophils # (Manual) PT INR D-Dimer ABG pH ABG pO2 ABG HCO3 ABG O2 Saturation ABG Base Excess ABG Hemoglobin Oxyhemoglobin Sodium 136 L Potassium Chloride Carbon Dioxide BUN Creatinine 0.4 L Glucose 71 L POC Glucose 123 H Lactic Acid Calcium Magnesium Iron TIBC Ferritin AST ALT Lactate Dehydrogenase Troponin T C-Reactive Protein Total Protein Albumin Prealbumin Cholesterol LDL Cholesterol Direct HDL Cholesterol Urine WBC (Auto) Vancomycin Trough Coronavirus (PCR) Crossmatch 08/18/19 08/18/19 08/19/19 18:23 23:16 04:57 WBC RBC Hgb Hct MCV MCH MCHC RDW Plt Count Lymph % (Auto) [place] % (Auto) Lymph # [place] # Baso # Seg Neutrophils % Seg Neuts % (Manual) Lymphocytes % (Manual) Monocytes % (Manual) Basophils % (Manual) Nucleated RBC % Seg Neutrophils # Seg Neutrophils # Man Lymphocytes # (Manual) Monocytes # (Manual) Eosinophils # (Manual) Basophils # (Manual) PT INR D-Dimer ABG pH ABG pO2 ABG HCO3 ABG O2 Saturation ABG Base Excess ABG Hemoglobin Oxyhemoglobin Sodium Potassium Chloride Carbon Dioxide BUN Creatinine Glucose POC Glucose 140 H 159 H 134 H Lactic Acid Calcium Magnesium Iron TIBC Ferritin AST ALT Lactate Dehydrogenase Troponin T C-Reactive Protein Total Protein Albumin Prealbumin Cholesterol LDL Cholesterol Direct HDL Cholesterol Urine WBC (Auto) Vancomycin Trough Coronavirus (PCR) Crossmatch 08/19/19 08/19/19 08/19/19 07:44 08:17 18:15 WBC 30.5 H RBC 2.87 L Hgb 7.9 L Hct 24.5 L MCV MCH MCHC RDW 18.8 H Plt Count 772 H Lymph % (Auto) [place] % (Auto) Lymph # [place] # Baso # Seg Neutrophils % Seg Neuts % (Manual) 89.0 H Lymphocytes % (Manual) 4.0 L Monocytes % (Manual) Basophils % (Manual) 2.0 H Nucleated RBC % Seg Neutrophils # Seg Neutrophils # Man 27.1 H Lymphocytes # (Manual) Monocytes # (Manual) 0.9 H Eosinophils # (Manual) 0.6 H Basophils # (Manual) 0.6 H PT INR D-Dimer ABG pH ABG pO2 ABG HCO3 ABG O2 Saturation ABG Base Excess ABG Hemoglobin Oxyhemoglobin Sodium 136 L Potassium Chloride Carbon Dioxide BUN Creatinine 0.3 L Glucose POC Glucose 106 H Lactic Acid Calcium 8.2 L Magnesium Iron TIBC Ferritin AST ALT Lactate Dehydrogenase Troponin T C-Reactive Protein Total Protein Albumin Prealbumin Cholesterol LDL Cholesterol Direct HDL Cholesterol Urine WBC (Auto) Vancomycin Trough Coronavirus (PCR) Crossmatch 08/19/19 08/20/19 08/20/19 23:46 06:20 18:34 WBC RBC Hgb Hct MCV MCH MCHC RDW Plt Count Lymph % (Auto) [place] % (Auto) Lymph # [place] # Baso # Seg Neutrophils % Seg Neuts % (Manual) Lymphocytes % (Manual) Monocytes % (Manual) Basophils % (Manual) Nucleated RBC % Seg Neutrophils # Seg Neutrophils # Man Lymphocytes # (Manual) Monocytes # (Manual) Eosinophils # (Manual) Basophils # (Manual) PT INR D-Dimer ABG pH ABG pO2 ABG HCO3 ABG O2 Saturation ABG Base Excess ABG Hemoglobin Oxyhemoglobin Sodium Potassium Chloride Carbon Dioxide BUN Creatinine Glucose POC Glucose 144 H 115 H 125 H Lactic Acid Calcium Magnesium Iron TIBC Ferritin AST ALT Lactate Dehydrogenase Troponin T C-Reactive Protein Total Protein Albumin Prealbumin Cholesterol LDL Cholesterol Direct HDL Cholesterol Urine WBC (Auto) Vancomycin Trough Coronavirus (PCR) Crossmatch 08/20/19 08/20/19 08/21/19 Unknown Unknown 11:56 WBC 18.7 H RBC 2.70 L Hgb 7.6 L Hct 23.1 L MCV MCH MCHC RDW 18.9 H Plt Count 690 H Lymph % (Auto) [place] % (Auto) Lymph # [place] # Baso # Seg Neutrophils % Seg Neuts % (Manual) Lymphocytes % (Manual) Monocytes % (Manual) Basophils % (Manual) Nucleated RBC % Seg Neutrophils # Seg Neutrophils # Man Lymphocytes # (Manual) Monocytes # (Manual) Eosinophils # (Manual) Basophils # (Manual) PT INR D-Dimer ABG pH ABG pO2 ABG HCO3 ABG O2 Saturation ABG Base Excess ABG Hemoglobin Oxyhemoglobin Sodium 134 L Potassium Chloride 97.9 L Carbon Dioxide BUN Creatinine 0.3 L Glucose 115 H POC Glucose 116 H Lactic Acid Calcium 8.2 L Magnesium Iron TIBC Ferritin AST ALT Lactate Dehydrogenase Troponin T C-Reactive Protein Total Protein Albumin Prealbumin Cholesterol LDL Cholesterol Direct HDL Cholesterol Urine WBC (Auto) Vancomycin Trough Coronavirus (PCR) Crossmatch 08/21/19 08/22/19 08/22/19 18:14 00:31 05:53 WBC RBC Hgb Hct MCV MCH MCHC RDW Plt Count Lymph % (Auto) [place] % (Auto) Lymph # [place] # Baso # Seg Neutrophils % Seg Neuts % (Manual) Lymphocytes % (Manual) Monocytes % (Manual) Basophils % (Manual) Nucleated RBC % Seg Neutrophils # Seg Neutrophils # Man Lymphocytes # (Manual) Monocytes # (Manual) Eosinophils # (Manual) Basophils # (Manual) PT INR D-Dimer ABG pH ABG pO2 ABG HCO3 ABG O2 Saturation ABG Base Excess ABG Hemoglobin Oxyhemoglobin Sodium Potassium Chloride Carbon Dioxide BUN Creatinine Glucose POC Glucose 113 H 106 H 109 H Lactic Acid Calcium Magnesium Iron TIBC Ferritin AST ALT Lactate Dehydrogenase Troponin T C-Reactive Protein Total Protein Albumin Prealbumin Cholesterol LDL Cholesterol Direct HDL Cholesterol Urine WBC (Auto) Vancomycin Trough Coronavirus (PCR) Crossmatch 08/22/19 08/23/19 08/23/19 18:35 00:18 06:00 WBC 12.3 H RBC 2.92 L Hgb 8.0 L Hct 24.6 L MCV MCH MCHC RDW 18.5 H Plt Count 661 H Lymph % (Auto) 11.7 L [place] % (Auto) 9.2 H Lymph # Logan # 1.1 H Baso # Seg Neutrophils % 75.6 H Seg Neuts % (Manual) Lymphocytes % (Manual) Monocytes % (Manual) Basophils % (Manual) Nucleated RBC % Seg Neutrophils # 9.3 H Seg Neutrophils # Man Lymphocytes # (Manual) Monocytes # (Manual) Eosinophils # (Manual) Basophils # (Manual) PT INR D-Dimer ABG pH ABG pO2 ABG HCO3 ABG O2 Saturation ABG Base Excess ABG Hemoglobin Oxyhemoglobin Sodium Potassium Chloride Carbon Dioxide BUN Creatinine Glucose POC Glucose 130 H 124 H Lactic Acid Calcium Magnesium Iron TIBC Ferritin AST ALT Lactate Dehydrogenase Troponin T C-Reactive Protein Total Protein Albumin Prealbumin Cholesterol LDL Cholesterol Direct HDL Cholesterol Urine WBC (Auto) Vancomycin Trough Coronavirus (PCR) Crossmatch 08/23/19 08/23/19 08/24/19 06:09 17:46 00:04 WBC RBC Hgb Hct MCV MCH MCHC RDW Plt Count Lymph % (Auto) [place] % (Auto) Lymph # [place] # Baso # Seg Neutrophils % Seg Neuts % (Manual) Lymphocytes % (Manual) Monocytes % (Manual) Basophils % (Manual) Nucleated RBC % Seg Neutrophils # Seg Neutrophils # Man Lymphocytes # (Manual) Monocytes # (Manual) Eosinophils # (Manual) Basophils # (Manual) PT INR D-Dimer ABG pH ABG pO2 ABG HCO3 ABG O2 Saturation ABG Base Excess ABG Hemoglobin Oxyhemoglobin Sodium Potassium Chloride Carbon Dioxide BUN Creatinine Glucose POC Glucose 117 H 125 H 113 H Lactic Acid Calcium Magnesium Iron TIBC Ferritin AST ALT Lactate Dehydrogenase Troponin T C-Reactive Protein Total Protein Albumin Prealbumin Cholesterol LDL Cholesterol Direct HDL Cholesterol Urine WBC (Auto) Vancomycin Trough Coronavirus (PCR) Crossmatch 08/24/19 08/24/19 08/24/19 05:34 12:28 17:32 WBC RBC Hgb Hct MCV MCH MCHC RDW Plt Count Lymph % (Auto) [place] % (Auto) Lymph # [place] # Baso # Seg Neutrophils % Seg Neuts % (Manual) Lymphocytes % (Manual) Monocytes % (Manual) Basophils % (Manual) Nucleated RBC % Seg Neutrophils # Seg Neutrophils # Man Lymphocytes # (Manual) Monocytes # (Manual) Eosinophils # (Manual) Basophils # (Manual) PT INR D-Dimer ABG pH ABG pO2 ABG HCO3 ABG O2 Saturation ABG Base Excess ABG Hemoglobin Oxyhemoglobin Sodium Potassium Chloride Carbon Dioxide BUN Creatinine Glucose POC Glucose 128 H 127 H 116 H Lactic Acid Calcium Magnesium Iron TIBC Ferritin AST ALT Lactate Dehydrogenase Troponin T C-Reactive Protein Total Protein Albumin Prealbumin Cholesterol LDL Cholesterol Direct HDL Cholesterol Urine WBC (Auto) Vancomycin Trough Coronavirus (PCR) Crossmatch 08/24/19 08/25/19 08/25/19 23:41 05:37 12:30 WBC RBC Hgb Hct MCV MCH MCHC RDW Plt Count Lymph % (Auto) [place] % (Auto) Lymph # [place] # Baso # Seg Neutrophils % Seg Neuts % (Manual) Lymphocytes % (Manual) Monocytes % (Manual) Basophils % (Manual) Nucleated RBC % Seg Neutrophils # Seg Neutrophils # Man Lymphocytes # (Manual) Monocytes # (Manual) Eosinophils # (Manual) Basophils # (Manual) PT INR D-Dimer ABG pH ABG pO2 ABG HCO3 ABG O2 Saturation ABG Base Excess ABG Hemoglobin Oxyhemoglobin Sodium Potassium Chloride Carbon Dioxide BUN Creatinine Glucose POC Glucose 107 H 129 H 110 H Lactic Acid Calcium Magnesium Iron TIBC Ferritin AST ALT Lactate Dehydrogenase Troponin T C-Reactive Protein Total Protein Albumin Prealbumin Cholesterol LDL Cholesterol Direct HDL Cholesterol Urine WBC (Auto) Vancomycin Trough Coronavirus (PCR) Crossmatch 08/25/19 08/25/19 08/26/19 17:49 23:55 05:35 WBC RBC Hgb Hct MCV MCH MCHC RDW Plt Count Lymph % (Auto) [place] % (Auto) Lymph # [place] # Baso # Seg Neutrophils % Seg Neuts % (Manual) Lymphocytes % (Manual) Monocytes % (Manual) Basophils % (Manual) Nucleated RBC % Seg Neutrophils # Seg Neutrophils # Man Lymphocytes # (Manual) Monocytes # (Manual) Eosinophils # (Manual) Basophils # (Manual) PT INR D-Dimer ABG pH ABG pO2 ABG HCO3 ABG O2 Saturation ABG Base Excess ABG Hemoglobin Oxyhemoglobin Sodium Potassium Chloride Carbon Dioxide BUN Creatinine Glucose POC Glucose 107 H 137 H 117 H Lactic Acid Calcium Magnesium Iron TIBC Ferritin AST ALT Lactate Dehydrogenase Troponin T C-Reactive Protein Total Protein Albumin Prealbumin Cholesterol LDL Cholesterol Direct HDL Cholesterol Urine WBC (Auto) Vancomycin Trough Coronavirus (PCR) Crossmatch 08/27/19 08/27/19 08/27/19 00:59 06:01 07:21 WBC 11.6 H RBC 3.15 L Hgb 8.3 L Hct 26.1 L MCV 83 L MCH 26 L MCHC RDW 18.6 H Plt Count 743 H Lymph % (Auto) 11.8 L [place] % (Auto) 8.8 H Lymph # Logan # 1.0 H Baso # Seg Neutrophils % 75.3 H Seg Neuts % (Manual) Lymphocytes % (Manual) Monocytes % (Manual) Basophils % (Manual) Nucleated RBC % Seg Neutrophils # 8.7 H Seg Neutrophils # Man Lymphocytes # (Manual) Monocytes # (Manual) Eosinophils # (Manual) Basophils # (Manual) PT INR D-Dimer ABG pH ABG pO2 ABG HCO3 ABG O2 Saturation ABG Base Excess ABG Hemoglobin Oxyhemoglobin Sodium Potassium Chloride Carbon Dioxide BUN Creatinine Glucose POC Glucose 126 H 134 H Lactic Acid Calcium Magnesium Iron TIBC Ferritin AST ALT Lactate Dehydrogenase Troponin T C-Reactive Protein Total Protein Albumin Prealbumin Cholesterol LDL Cholesterol Direct HDL Cholesterol Urine WBC (Auto) Vancomycin Trough Coronavirus (PCR) Crossmatch 08/27/19 08/27/19 08/28/19 07:21 18:05 00:37 WBC RBC Hgb Hct MCV MCH MCHC RDW Plt Count Lymph % (Auto) [place] % (Auto) Lymph # [place] # Baso # Seg Neutrophils % Seg Neuts % (Manual) Lymphocytes % (Manual) Monocytes % (Manual) Basophils % (Manual) Nucleated RBC % Seg Neutrophils # Seg Neutrophils # Man Lymphocytes # (Manual) Monocytes # (Manual) Eosinophils # (Manual) Basophils # (Manual) PT INR D-Dimer ABG pH ABG pO2 ABG HCO3 ABG O2 Saturation ABG Base Excess ABG Hemoglobin Oxyhemoglobin Sodium 132 L Potassium 5.1 H Chloride 97.6 L Carbon Dioxide BUN Creatinine 0.3 L Glucose 119 H POC Glucose 127 H 106 H Lactic Acid Calcium Magnesium Iron TIBC Ferritin AST ALT Lactate Dehydrogenase Troponin T C-Reactive Protein Total Protein Albumin Prealbumin Cholesterol LDL Cholesterol Direct HDL Cholesterol Urine WBC (Auto) Vancomycin Trough Coronavirus (PCR) Crossmatch 08/28/19 08/29/19 08/29/19 18:14 00:01 12:16 WBC RBC Hgb Hct MCV MCH MCHC RDW Plt Count Lymph % (Auto) [place] % (Auto) Lymph # [place] # Baso # Seg Neutrophils % Seg Neuts % (Manual) Lymphocytes % (Manual) Monocytes % (Manual) Basophils % (Manual) Nucleated RBC % Seg Neutrophils # Seg Neutrophils # Man Lymphocytes # (Manual) Monocytes # (Manual) Eosinophils # (Manual) Basophils # (Manual) PT INR D-Dimer ABG pH ABG pO2 ABG HCO3 ABG O2 Saturation ABG Base Excess ABG Hemoglobin Oxyhemoglobin Sodium Potassium Chloride Carbon Dioxide BUN Creatinine Glucose POC Glucose 115 H 146 H 107 H Lactic Acid Calcium Magnesium Iron TIBC Ferritin AST ALT Lactate Dehydrogenase Troponin T C-Reactive Protein Total Protein Albumin Prealbumin Cholesterol LDL Cholesterol Direct HDL Cholesterol Urine WBC (Auto) Vancomycin Trough Coronavirus (PCR) Crossmatch 08/30/19 08/30/19 08/30/19 05:10 05:10 05:25 WBC 12.3 H RBC 3.01 L Hgb 8.0 L Hct 25.1 L MCV MCH 27 L MCHC RDW 19.3 H Plt Count 709 H Lymph % (Auto) 8.9 L [place] % (Auto) Lymph # 1.1 L [place] # Baso # Seg Neutrophils % 82.7 H Seg Neuts % (Manual) Lymphocytes % (Manual) Monocytes % (Manual) Basophils % (Manual) Nucleated RBC % Seg Neutrophils # 10.1 H Seg Neutrophils # Man Lymphocytes # (Manual) Monocytes # (Manual) Eosinophils # (Manual) Basophils # (Manual) PT INR D-Dimer ABG pH ABG pO2 ABG HCO3 ABG O2 Saturation ABG Base Excess ABG Hemoglobin Oxyhemoglobin Sodium 133 L Potassium Chloride 97.8 L Carbon Dioxide BUN Creatinine 0.3 L Glucose POC Glucose 106 H Lactic Acid Calcium Magnesium 1.50 L Iron TIBC Ferritin AST ALT Lactate Dehydrogenase Troponin T C-Reactive Protein Total Protein Albumin 2.4 L Prealbumin Cholesterol LDL Cholesterol Direct HDL Cholesterol Urine WBC (Auto) Vancomycin Trough Coronavirus (PCR) Crossmatch 08/30/19 08/30/19 08/31/19 18:26 23:48 05:32 WBC RBC Hgb Hct MCV MCH MCHC RDW Plt Count Lymph % (Auto) [place] % (Auto) Lymph # [place] # Baso # Seg Neutrophils % Seg Neuts % (Manual) Lymphocytes % (Manual) Monocytes % (Manual) Basophils % (Manual) Nucleated RBC % Seg Neutrophils # Seg Neutrophils # Man Lymphocytes # (Manual) Monocytes # (Manual) Eosinophils # (Manual) Basophils # (Manual) PT INR D-Dimer ABG pH ABG pO2 ABG HCO3 ABG O2 Saturation ABG Base Excess ABG Hemoglobin Oxyhemoglobin Sodium Potassium Chloride Carbon Dioxide BUN Creatinine Glucose POC Glucose 139 H 113 H 115 H Lactic Acid Calcium Magnesium Iron TIBC Ferritin AST ALT Lactate Dehydrogenase Troponin T C-Reactive Protein Total Protein Albumin Prealbumin Cholesterol LDL Cholesterol Direct HDL Cholesterol Urine WBC (Auto) Vancomycin Trough Coronavirus (PCR) Crossmatch 09/01/19 09/01/19 09/01/19 04:33 11:43 14:50 WBC RBC Hgb Hct MCV MCH MCHC RDW Plt Count Lymph % (Auto) [place] % (Auto) Lymph # [place] # Baso # Seg Neutrophils % Seg Neuts % (Manual) Lymphocytes % (Manual) Monocytes % (Manual) Basophils % (Manual) Nucleated RBC % Seg Neutrophils # Seg Neutrophils # Man Lymphocytes # (Manual) Monocytes # (Manual) Eosinophils # (Manual) Basophils # (Manual) PT INR D-Dimer ABG pH 7.485 H ABG pO2 483.8 H ABG HCO3 ABG O2 Saturation 99.6 H ABG Base Excess ABG Hemoglobin 8.0 L Oxyhemoglobin Sodium Potassium Chloride Carbon Dioxide BUN Creatinine Glucose POC Glucose 127 H Lactic Acid Calcium Magnesium 1.30 L Iron TIBC Ferritin AST ALT Lactate Dehydrogenase Troponin T C-Reactive Protein Total Protein Albumin Prealbumin Cholesterol LDL Cholesterol Direct HDL Cholesterol Urine WBC (Auto) Vancomycin Trough Coronavirus (PCR) Crossmatch 09/01/19 09/01/19 09/01/19 14:50 17:00 17:28 WBC RBC Hgb Hct MCV MCH MCHC RDW Plt Count Lymph % (Auto) [place] % (Auto) Lymph # [place] # Baso # Seg Neutrophils % Seg Neuts % (Manual) Lymphocytes % (Manual) Monocytes % (Manual) Basophils % (Manual) Nucleated RBC % Seg Neutrophils # Seg Neutrophils # Man Lymphocytes # (Manual) Monocytes # (Manual) Eosinophils # (Manual) Basophils # (Manual) PT INR D-Dimer ABG pH ABG pO2 116.0 H ABG HCO3 ABG O2 Saturation ABG Base Excess ABG Hemoglobin 12.2 L Oxyhemoglobin Sodium 133 L Potassium Chloride Carbon Dioxide BUN Creatinine 0.3 L Glucose 117 H POC Glucose 135 H Lactic Acid Calcium Magnesium Iron TIBC Ferritin AST ALT Lactate Dehydrogenase Troponin T C-Reactive Protein Total Protein Albumin Prealbumin Cholesterol LDL Cholesterol Direct HDL Cholesterol Urine WBC (Auto) Vancomycin Trough Coronavirus (PCR) Crossmatch 09/01/19 09/01/19 09/02/19 23:13 23:35 05:37 WBC RBC Hgb Hct MCV MCH MCHC RDW Plt Count Lymph % (Auto) [place] % (Auto) Lymph # [place] # Baso # Seg Neutrophils % Seg Neuts % (Manual) Lymphocytes % (Manual) Monocytes % (Manual) Basophils % (Manual) Nucleated RBC % Seg Neutrophils # Seg Neutrophils # Man Lymphocytes # (Manual) Monocytes # (Manual) Eosinophils # (Manual) Basophils # (Manual) PT INR D-Dimer ABG pH ABG pO2 ABG HCO3 ABG O2 Saturation ABG Base Excess ABG Hemoglobin Oxyhemoglobin Sodium Potassium Chloride Carbon Dioxide BUN Creatinine Glucose POC Glucose 131 H 110 H 129 H Lactic Acid Calcium Magnesium Iron TIBC Ferritin AST ALT Lactate Dehydrogenase Troponin T C-Reactive Protein Total Protein Albumin Prealbumin Cholesterol LDL Cholesterol Direct HDL Cholesterol Urine WBC (Auto) Vancomycin Trough Coronavirus (PCR) Crossmatch 09/02/19 09/02/19 09/02/19 12:01 17:24 23:39 WBC RBC Hgb Hct MCV MCH MCHC RDW Plt Count Lymph % (Auto) [place] % (Auto) Lymph # [place] # Baso # Seg Neutrophils % Seg Neuts % (Manual) Lymphocytes % (Manual) Monocytes % (Manual) Basophils % (Manual) Nucleated RBC % Seg Neutrophils # Seg Neutrophils # Man Lymphocytes # (Manual) Monocytes # (Manual) Eosinophils # (Manual) Basophils # (Manual) PT INR D-Dimer ABG pH ABG pO2 ABG HCO3 ABG O2 Saturation ABG Base Excess ABG Hemoglobin Oxyhemoglobin Sodium Potassium Chloride Carbon Dioxide BUN Creatinine Glucose POC Glucose 129 H 118 H 133 H Lactic Acid Calcium Magnesium Iron TIBC Ferritin AST ALT Lactate Dehydrogenase Troponin T C-Reactive Protein Total Protein Albumin Prealbumin Cholesterol LDL Cholesterol Direct HDL Cholesterol Urine WBC (Auto) Vancomycin Trough Coronavirus (PCR) Crossmatch 09/03/19 09/04/19 09/04/19 05:24 00:22 05:28 WBC RBC Hgb Hct MCV MCH MCHC RDW Plt Count Lymph % (Auto) Logan % (Auto) Lymph # Logan # Baso # Seg Neutrophils % Seg Neuts % (Manual) Lymphocytes % (Manual) Monocytes % (Manual) Basophils % (Manual) Nucleated RBC % Seg Neutrophils # Seg Neutrophils # Man Lymphocytes # (Manual) Monocytes # (Manual) Eosinophils # (Manual) Basophils # (Manual) PT INR D-Dimer ABG pH ABG pO2 ABG HCO3 ABG O2 Saturation ABG Base Excess ABG Hemoglobin Oxyhemoglobin Sodium Potassium Chloride Carbon Dioxide BUN Creatinine Glucose POC Glucose 114 H 121 H 152 H Lactic Acid Calcium Magnesium Iron TIBC Ferritin AST ALT Lactate Dehydrogenase Troponin T C-Reactive Protein Total Protein Albumin Prealbumin Cholesterol LDL Cholesterol Direct HDL Cholesterol Urine WBC (Auto) Vancomycin Trough Coronavirus (PCR) Crossmatch 09/04/19 09/05/19 18:27 05:46 WBC RBC Hgb Hct MCV MCH MCHC RDW Plt Count Lymph % (Auto) Logan % (Auto) Lymph # Logan # Baso # Seg Neutrophils % Seg Neuts % (Manual) Lymphocytes % (Manual) Monocytes % (Manual) Basophils % (Manual) Nucleated RBC % Seg Neutrophils # Seg Neutrophils # Man Lymphocytes # (Manual) Monocytes # (Manual) Eosinophils # (Manual) Basophils # (Manual) PT INR D-Dimer ABG pH ABG pO2 ABG HCO3 ABG O2 Saturation ABG Base Excess ABG Hemoglobin Oxyhemoglobin Sodium Potassium Chloride Carbon Dioxide BUN Creatinine Glucose POC Glucose 108 H 110 H Lactic Acid Calcium Magnesium Iron TIBC Ferritin AST ALT Lactate Dehydrogenase Troponin T C-Reactive Protein Total Protein Albumin Prealbumin Cholesterol LDL Cholesterol Direct HDL Cholesterol Urine WBC (Auto) Vancomycin Trough Coronavirus (PCR) Crossmatch Allied health notes reviewed: RT
--- NOTE | 2019-09-05 16:38 | Progress Note ---
Assessment and Plan Cultures: 07/03/2019 urine culture: No growth 07/03/2019 Tracheal aspirate: E.coli 07/29/2019 urine culture: neg 07/30/2019 blood culture: no growth tracheal asp + Pseudomonas 08/06/2019 blood culture: no growth 08/09/2019 Wound MDR Enterobacter 08/16/2019 blood culture: no growth to date 08/20/2019 COVID-19 PCR: negative A/P: 69-year-old male with CVA, hypertension, dementia, schizophrenia, alcohol use disorder was admitted to the emergency room after being brought in by EMS with progressive shortness of breath and unresponsiveness. He was noted to have agonal breathing and a faint pulse requiring CPR. It seems patient was on hospice recently, prior to admission. #Shock, likely septic: shock resolved, remains off pressors. still intermittent fever, leukocytosis worse again: bacterial pneumonia vs sacral decubitus infection. #Non-resolving pneumonia/Cavitary pneumonia: ? abscess. Sputum +Pseudomonas. CT shows RUL pneumonia with 2.4 cm cavity and LLL pneumonia with moderate left pleural effusion. No need for thoracentesis per Pulm. #Penile/scrotal and buttocks wounds: ?cellulitis #Sacral decubitus: worsening on last exam ? necrotic. Evaluated for surgery, no indications for intervention. 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 bleeding overnight s/p surgical management bedside, 08/09/2019 Wound MDR Enterobacter likely a colonizer (superficial wound cx) #UTI: per documentation initial carroll placed on 07/03, exchanged on 07/31. #Severe COVID-19 disease and pneumonia: Markers improving. Completed Plaquenil. Completed Ceftriaxone for treatment E.coli in tracheal aspirate. Repeat COVID finally negative on 08/20/2019. #Acute respiratory failure: remains on mechanical ventilation. #Multiple skin tears documented on admission #Anemia: from sacral wound bleeding Recs: Monitor off medication for now. Overall prognosis is extremely poor. Continue wound care Patient may be having central fevers, ordered CBC in a.m. to see if any major difference from previous. Mekhi Barboza MD [facility] ([facility] M: [phone] O: [phone] F: [phone] Subjective Date of service: 09/05/19 Principal diagnosis: Bilateral pneumonia, severe sepsis with septic shock, encephalopathy Interval history: Febrile last night to 101.6 degrees. No other acute changes. Objective - Exam Narrative Exam: Narrative Exam: Physical Exam (reviewed in chart due to PPE conservation) Constitutional: intubated, sedated, on the vent Head, Ears, Nose: normocephalic, atraumatic Eyes: limited due to PPE conservation strategy Neck: intubated Oral: intubated Cardiovascular: limited due to PPE conservation strategy Respiratory: limited due to PPE conservation strategy GI: limited due to PPE conservation strategy Musculoskeletal: limited due to PPE conservation strategy Skin: limited due to PPE conservation strategy. Decubitus + Hem/Lymphatic: limited due to PPE conservation strategy Psych: no agitation Neurological: sedated, intubated, on the vent, exam limited - Constitutional Vitals: Vital Signs Temp Pulse Resp BP Pulse Ox 101.7 F H 98 H 13 98/65 100 09/05/19 16:00 09/05/19 15:57 09/05/19 15:00 09/05/19 15:57 09/05/19 15:57 Temperature -Last 24 Hours Temperature 101.7 F Temperature 101.6 F Temperature 100.5 F Temperature 99.7 F Temperature 99.6 F Temperature 99.3 F - Labs CBC & Chem 7: 08/30/19 05:10 09/01/19 14:50 Labs: Abnormal lab results 09/04/19 09/05/19 09/05/19 Range/Units 18:27 05:46 12:17 POC Glucose 108 H 110 H 120 H (70-105)
--- NOTE | 2019-09-05 17:23 | Progress Note ---
Assessment and Plan /Acute respiratory Failure with Hypoxia - Due to bilateral PNA with COVID 19 infection. -pulmonary critical care following -Continue scheduled labs, mechanical ventilation, supportive care as needed - s/p trach and PEG on 08/31/2019 /COVid positive b/l pneumonia with severe sepsis -Possible abscess, no need for drianage per ID/pULM -Received Plaquenil and cefepime, -Currently patient is on Levaquin per ID 08/20/2019; hernandez PCR negative 08/10/2019; hernandez PCR positive 07/29/2019; hernandez PCR positive 07/04/2019; hernandez PCR positive /Adynamic ileus; on abdominal x-ray, -consulted surgery and recommended to resume tube feeding -Trach and PEG scheduled for 08/31/2019 /Vomitings: Probably secondary to high residuals -IV Zofran as needed, lowered the rate for tube feeding -Discussed with patient's nurse Acute metabolic encephalopathy -Likely due to respiratory arrest and severe sepsis with underlying advanced dementia - Hold Hyoscamine. monitor Troponins. -CT head unremarkable Shock, likely septic: Lactic acidosis -Levophed as needed, continue IV fluid COPD with exacerbation -Likely due to COVID-19 pneumonia -Continue scheduled nebs Anemia, Microcytic -due to iron deficiency - monitor H&H, transfused one unit Pressure Ulcers - buttocks, right lateral foot area - present upon admission - wound care consulted Hyponatremia, continue IV fluid DM type 2 - Accuchecks with sliding scale insulin HTN Essential, now hypotensive -relatively low BP - on IVF. monitor Seizure D/o/CVA/immobility/BIpolar D/o/SCZ chronic medical conditions - continue meds Severe PCM, TF for now, dietary following patient is DNR- Called and verified information Guarded prognosis, patient is critically ill Awaiting trach and PEG, and LTAC placement 07/04- 08/19: please see 08/[address] arana 08/20-08/28: please see 08/[address] Leyva 08/29: Resumed care. Remains on full ventilatory support mental status still unchanged. Continue supportive care. Monitor off antibiotics per ID. Resumed TF, plan for trach and PEG tomorrow. 08/30: Plan for trach and PEG today, will continue to provide supportive care and follow clinically 08/31: On trach and PEG. tolerating TF. pending LTAC placement 09/01: pending LTAC placement 09/02: wean off vent as tolerated. pending LTAC placement 09/03: wean off vent as tolerated. pending LTAC placement 09/04: wean off vent as tolerated. pending LTAC placement The high probability of a clinically significant, sudden or life threatening deterioration of the [respiratory, CVS, COGNOS ARCHITECT] system(s) required my full and direct attention, intervention and personal management. The aggregate critical care time was [32] minutes. This time is in addition to time spent performing reported procedures but includes the following: [x] Data Review and interpretation [x] Patient assessment and monitoring of vital signs [x] Documentation [x] Medication orders and management Brief History: 69-year-old male with PMH of CVA with RHP, HTN, DM2, SCZ, Dementia, Alcohol use D/o, Seizure D/O, presents to the emergency department via EMS from home with progressive SOB and impending espiratory failure with an unresponsive episode. Apparently the patient was witnessed becoming unresponsive by family members. Reportedly, pt had just gotten a high dose of Hyoscamine When EMS got there, the patient was agonal breathing and had a faint pulse. No CPR was indicated per EMS. PT was intubated and received some IV fluid en route to the hospital. He was admitted for sepsis, b/l PNA, acute respiratory failure. Patient was tested positive for COVID19. Evaluated by ID , received antibiotics Plaquenil, and inflammatory markers were checked and followed. Patient continues to be hypotensive currently on Levophed, unable to wean- remains intubated on ventilatory support, critically ill, DNR status however family wants full treatment. Surgery evaluated recommend trach and PEG. need LTAC for discharge Physical exam: General appearance: Present: no acute distress, cachectic, other (On vent) - EENT Eyes: Present: PERRL, EOM intact - Neck Neck: Present: supple, normal ROM, other (trach tube) - Respiratory Respiratory effort: normal Respiratory: bilateral: diminished, negative: rales, rhonchi - Cardiovascular Rhythm: regular Heart Sounds: Present: S1 & S2 - Extremities Extremities: no ischemia, No edema - Abdominal General gastrointestinal: soft, non-tender, distended, PEG on place - Integumentary Integumentary: Present: clear, warm - Psychiatric Psychiatric: other (Intubated on trach) - Neurologic Neurologic: other (Intubated on trach) Subjective Date of service: 09/05/19 Principal diagnosis: Bilateral pneumonia, severe sepsis with septic shock, encephalopathy Interval history: Patient seen and examined. Medical records and medication list reviewed. No acute event overnight noted by the RN. Patient is now negative for COVID-19. Patient remains intubated with trach on mechanical ventilation Discussed plan of care at bedside with patient's RN. Objective - Constitutional Vitals: Vital Signs - 12hr 09/05/19 09/05/19 09/05/19 06:00 07:00 08:00 Temperature 100.5 F H Pulse Rate 105 H 114 H 112 H Pulse Rate [ 101 H From Monitor] Respiratory 33 H 41 H 38 H Rate Blood Pressure 121/66 138/74 140/81 O2 Sat by Pulse 96 91 97 Oximetry O2 Sat by Pulse Oximetry [ Assessment] 09/05/19 09/05/19 09/05/19 08:10 09:00 10:00 Temperature Pulse Rate 107 H 111 H 110 H Pulse Rate [ From Monitor] Respiratory 35 H 32 H 33 H Rate Blood Pressure 140/81 133/80 138/79 O2 Sat by Pulse 98 98 98 Oximetry O2 Sat by Pulse Oximetry [ Assessment] 09/05/19 09/05/19 09/05/19 10:55 11:00 11:36 Temperature Pulse Rate 116 H 120 H 91 H Pulse Rate [ From Monitor] Respiratory 36 H Rate Blood Pressure 138/79 147/84 147/84 O2 Sat by Pulse 97 100 Oximetry O2 Sat by Pulse Oximetry [ Assessment] 09/05/19 09/05/19 09/05/19 11:43 12:00 13:00 Temperature 101.6 F H Pulse Rate 90 90 Pulse Rate [ From Monitor] Respiratory 20 20 Rate Blood Pressure 147/84 88/51 O2 Sat by Pulse 100 98 Oximetry O2 Sat by Pulse 100 Oximetry [ Assessment] 09/05/19 09/05/19 09/05/19 14:00 15:00 15:57 Temperature Pulse Rate 91 H 89 98 H Pulse Rate [ From Monitor] Respiratory 18 13 Rate Blood Pressure 91/61 98/65 98/65 O2 Sat by Pulse 100 100 Oximetry O2 Sat by Pulse Oximetry [ Assessment] 09/05/19 16:00 Temperature 101.7 F H Pulse Rate Pulse Rate [ From Monitor] Respiratory Rate Blood Pressure O2 Sat by Pulse Oximetry O2 Sat by Pulse Oximetry [ Assessment] - Labs CBC & Chem 7: 09/06/19 04:32 09/06/19 03:45 Labs: Abnormal lab results 09/04/19 09/05/19 09/05/19 Range/Units 18:27 05:46 12:17 POC Glucose 108 H 110 H 120 H (70-105) HEART Score - HEART Score Troponin: Troponin T 0.013 ng/mL (0.00-0.029) 07/04/19 07:05
[2019-09-05] MEDS: ACETAMINOPHEN 325 MG/10.15 ML ORAL LIQD UNIT DOSE PO PRN (17:33)
[2019-09-05] MEDS: POLYETHYLENE GLYCOL 3350 17 GM POWDER PO SCH (21:29)
[2019-09-06] MEDS: INSULIN LISPRO 100 UNIT/ML SUB-Q SCH ×2 (00:15→05:51)
[2019-09-06 04:10] LABS: BUN/Creatinine Ratio 40; Blood Urea Nitrogen 12 mg/dL (9-20); Calcium 8.6 mg/dL (8.4-10.2); Hemolysis Index 1
[2019-09-06 04:52] LABS: Basophils # (Auto) 0.1 K/mm3 (0.0-0.1); Basophils % (Auto) 0.8 % (0.0-1.8); Eosinophils # (Auto) 0.4 K/mm3 (0.0-0.4); Eosinophils % (Auto) 3.6 % (0.0-4.3); Hematocrit 23.9 % (35.5-45.6); Hemoglobin 7.9 gm/dl (11.8-15.2); Lymphocytes # (Auto) 1.2 K/mm3 (1.2-5.4); Lymphocytes % (Auto) 10.2 % (13.4-35.0); Mean Corpuscular HGB Conc 33 % (32-34); Mean Corpuscular Volume 82 fl (84-94); Monocytes # (Auto) 1.1 K/mm3 (0.0-0.8); Monocytes % (Auto) 9.3 % (0.0-7.3); Platelet Count 778 K/mm3 (140-440); Red Blood Count 2.94 M/mm3 (3.65-5.03); Red Cell Distribution Width 18.5 % (13.2-15.2)
[2019-09-06] MEDS: FAMOTIDINE 20 MG TAB PO SCH (09:21)
[2019-09-06] MEDS: GLYCOPYRROLATE 1 MG TAB PO SCH (09:21)
[2019-09-06] MEDS: ACETAMINOPHEN 325 MG/10.15 ML ORAL LIQD UNIT DOSE PO PRN (09:22)
[2019-09-06] MEDS: ASPIRIN 81 MG TAB CHEW PO SCH (09:22)
[2019-09-06] MEDS: levETIRAcetam 500 MG/5 ML ORAL LIQD FEEDTUBE SCH (09:22)
[2019-09-06] MEDS: DOCUSATE SODIUM 100 MG/10 ML ORAL LIQD PO SCH (09:22)
[2019-09-06] MEDS: METOPROLOL TARTRATE 25 MG TAB PO SCH (09:23)
[2019-09-06] MEDS: FOLIC ACID 1 MG TAB PO SCH (09:23)
[2019-09-06] MEDS: ENOXAPARIN 40 MG/0.4 ML INJ SUB-Q SCH (09:23)
[2019-09-06] MEDS: SODIUM HYPOCHLORITE, DAKIN'S 1/2 STRENGTH (0.25%) 473 ML TOPICAL SOLN TP SCH (09:24)
--- NOTE | 2019-09-06 11:42 | Discharge Summary ---
Providers - Providers Date of Admission: 07/04/19 00:26 Date of discharge: 09/06/19 Attending physician: CATALINA SOSA 07/03/19 19:56 Consult to Dietitian/Nutrition [CONS] Routine Physician Instructions: Reason For Exam: Reason for Consult: Evaluate nutritional intake 07/04/19 04:24 Consult to Wound/ET Nurse [CONS] Routine Reason For Exam: wound eval 07/04/19 04:26 Consult to Dietitian/Nutrition [CONS] Routine Physician Instructions: Reason For Exam: Reason for Consult: Write/Manage Tube Feeding Consult to Physician [CONS] Routine Comment: Consulting Provider: CAROLYNN BEARD Physician Instructions: Reason For Exam: acute respiratory failure, Bilateral PNA 07/04/19 13:55 Consult to Physician [CONS] Routine Comment: Consulting Provider: SHIVANI COTTER Physician Instructions: Reason For Exam: hyponatremia 07/04/19 13:59 Consult to Physician [CONS] Routine Comment: Consulting Provider: DANIKA SIMON Physician Instructions: Reason For Exam: b/l PNA 07/20/19 09:39 Consult to Physician [CONS] Routine Comment: Consulting Provider: DORA BEARD Physician Instructions: Reason For Exam: clogged PEG 07/27/19 15:26 Consult to Physician [CONS] Routine Comment: called answ. serv. spoke to leydi josue Consulting Provider: BRYAN RAINES Physician Instructions: Reason For Exam: tracheostomy placement 07/30/19 10:46 Consult to Wound/ET Nurse [CONS] Urgent Reason For Exam: wound eval please eval new scrotal wound and decub 08/22/19 10:12 Consult to PICC Line RN [CONS] Urgent Reason For Exam: change IV access to midline Type Line:: Midline 09/04/19 10:59 Midline [Consult to PICC Line RN] [CONS] Urgent Reason For Exam: change IV access to midline Type Line:: Midline Primary care physician: PHYSICIAN OFFICE REP Hospitalization Condition: Critical Pertinent studies: Head CT, chest x-rays, abdominal x-rays, abdomen pelvis CT Procedures: Trach and PEG placement Hospital course: 69-year-old male with PMH of CVA with RHP, HTN, DM2, SCZ, Dementia, Alcohol use D/o, Seizure D/O, presents to the emergency department via EMS from home with progressive SOB and impending espiratory failure with an unresponsive episode. Apparently the patient was witnessed becoming unresponsive by family members. Reportedly, pt had just gotten a high dose of Hyoscamine When EMS got there, the patient was agonal breathing and had a faint pulse. No CPR was indicated per EMS. PT was intubated and received some IV fluid en route to the hospital. He was admitted for sepsis, b/l PNA, acute respiratory failure. Patient was tested positive for COVID19. Evaluated by ID , received antibiotics Plaquenil, and inflammatory markers were checked and followed. Patient continues to be hypotensive currently on Levophed, unable to wean- remains intubated on ventilatory support, critically ill, DNR status however family wants full treatment. s/p trach and PEG by GS on 08/31/19. Patient now being discharge to LTAC for further care. Discharge diagnosis and Mx /Acute respiratory Failure with Hypoxia - Due to bilateral PNA with COVID 19 infection. -pulmonary critical care following -Continue scheduled labs, mechanical ventilation, supportive care as needed - s/p trach and PEG on 08/31/2019 /COVid positive b/l pneumonia with severe sepsis -Possible abscess, no need for drianage per ID/pULM -Received Plaquenil and cefepime, -Currently patient is on Levaquin per ID 08/20/2019; hernandez PCR negative 08/10/2019; hernandez PCR positive 07/29/2019; hernandez PCR positive 07/04/2019; hernandez PCR positive /Adynamic ileus; on abdominal x-ray, -consulted surgery and recommended to resume tube feeding -Trach and PEG scheduled for 08/31/2019 /Vomitings: Probably secondary to high residuals -IV Zofran as needed, lowered the rate for tube feeding -Discussed with patient's nurse Acute metabolic encephalopathy -Likely due to respiratory arrest and severe sepsis with underlying advanced dementia - Hold Hyoscamine. monitor Troponins. -CT head unremarkable Shock, likely septic: Lactic acidosis -Levophed as needed, continue IV fluid COPD with exacerbation -Likely due to COVID-19 pneumonia -Continue scheduled nebs Anemia, Microcytic -due to iron deficiency - monitor H&H, transfused one unit Pressure Ulcers - buttocks, right lateral foot area - present upon admission - wound care consulted Hyponatremia, continue IV fluid DM type 2 - Accuchecks with sliding scale insulin HTN Essential, now hypotensive -relatively low BP - on IVF. monitor Seizure D/o/CVA/immobility/BIpolar D/o/SCZ chronic medical conditions - continue meds Severe PCM, TF for now, dietary following patient is DNR- Called and verified information Disposition: [facility] Physical exam: General appearance: Present: no acute distress, cachectic, other (On vent) - EENT Eyes: Present: PERRL, EOM intact - Neck Neck: Present: supple, normal ROM, other (trach tube) - Respiratory Respiratory effort: normal Respiratory: bilateral: diminished, negative: rales, rhonchi - Cardiovascular Rhythm: regular Heart Sounds: Present: S1 & S2 - Extremities Extremities: no ischemia, No edema - Abdominal General gastrointestinal: soft, non-tender, distended, PEG on place - Integumentary Integumentary: Present: clear, warm - Psychiatric Psychiatric: other (Intubated on trach) - Neurologic Neurologic: other (Intubated on trach) Disposition: [id number] MEDICARE CERT [facility] Time spent for discharge: 34 minutes Core Measure Documentation - Palliative Care Palliative Care/ Comfort Measures: Not Applicable - Core Measures Any of the following diagnoses?: history only Exam - Constitutional Vitals: Temp Pulse Resp BP Pulse Ox 100.7 F H 116 H 19 110/68 99 09/06/19 08:00 09/06/19 09:23 09/06/19 08:00 09/06/19 09:23 09/06/19 08:56 Plan Activity: other (bed rest) Diet: other (TF) Follow up with: PRIMARY CAREMD [Primary Care Provider] - 3-5 Days
--- NOTE | 2019-09-06 12:10 | Progress Note ---
Assessment and Plan Acute hypoxemic respiratory failure on MVS Severe sepsis with Shock. Bilateral Pneumonia. PUI coronavirus-19 infection. Acute possibly on chronic encephalopathy. Oropharyngeal dysphagia. Anemia. Decubitus ulcers Diabetes type 2. Hypertension. Leukocytosis. Anemia that is microcytic. Elevated serum transaminases. [id number] metabolic acidosis. Lactic acidosis. Severe protein-calorie malnutrition - continue bronchodilators with routine trach care & pulmonary hygiene per RT - continue low dose Reglan - t-piece trials shortly - no new issues otherwise, continue care as below otherwise - repeat COVID-19 negative - prn CXR's and ABG's at this point - continue care as below otherwise - continue fentanyl gtt for pain control / sedation - continue to wean supplemental oxygen for target O2 sat's > 90% acutely - continue daily SAT's and SBT assessment as tolerated - VAP bundle addressed - continue lung protective strategies - wean per pulmonary driven protocols otherwise - prn Levophed for target MAP > 65 mmHg - discontinued airborne and contact COVID-19 precautions - s/p anti-infectives and de-escalation per ID recommendations - continue wound care per WCT - sedation prn for target RASS 0 to -1 - accuchecks with glycemic control per SSI (While critically ill target blood glucose of 140-180 mg/dL; avoid hypoglycemia) - to avoid benzodiazepine's, reduce the possibility of delirium - prn analgesia per CPOT score - Maintenance of sleep-wake cycle, avoid delirium - continue enteral nutritional support at goal rate as tolerated - G.I. & VTE prophylaxis - PT/OT/ROM exercises - continue mobility protocols for pressure ulcer prophylaxis - Monitor hemodynamics closely - continue other care per attending / other consultants - discharge planning ongoing concurrently .... Re-evaluate in am & prn CONDITION: CRITICAL PROGNOSIS: GUARDED CODE STATUS: FULL CODE The high probability of a clinically significant, sudden or life-threatening deterioration of the [respiratory & cardiovascular] system(s) required my full and direct attention, intervention and personal management. The aggregate critical care time was [34] minutes without overlap. Time includes spent on; [x] Data Review and interpretation [x] Patient assessment and monitoring of vital signs [x] Documentation [x] Medication orders and management Subjective Date of service: 09/06/19 Principal diagnosis: Bilateral pneumonia, severe sepsis with septic shock, encephalopathy Interval history: Patient is seen today for: Ac hypoxemic Resp failure on MVS; Severe sepsis with Shock; Ivan. Pneumonia; PUI coronavirus-19 infection. Seen and examined at bedside; 24hour events reviewed; nursing and respiratory care staff consulted; no adverse overnight events reported to me; resting in bed; remains on MVS; s/p trach; Objective Vital Signs - 12hr 09/06/19 09/06/19 09/06/19 01:00 02:00 02:05 Temperature Pulse Rate 81 79 Pulse Rate [ From Monitor] Respiratory 21 17 Rate Blood Pressure 100/61 107/61 O2 Sat by Pulse 100 99 Oximetry O2 Sat by Pulse 100 Oximetry [ Assessment] 09/06/19 09/06/19 09/06/19 03:00 04:00 04:29 Temperature 100.1 F H Pulse Rate 81 77 81 Pulse Rate [ From Monitor] Respiratory 13 19 Rate Blood Pressure 100/59 119/61 119/61 O2 Sat by Pulse 100 100 100 Oximetry O2 Sat by Pulse Oximetry [ Assessment] 09/06/19 09/06/19 09/06/19 05:00 06:00 07:00 Temperature Pulse Rate 84 84 93 H Pulse Rate [ From Monitor] Respiratory 17 15 13 Rate Blood Pressure 111/60 105/61 108/67 O2 Sat by Pulse 100 100 Oximetry O2 Sat by Pulse Oximetry [ Assessment] 09/06/19 09/06/19 09/06/19 08:00 08:55 08:56 Temperature 100.7 F H Pulse Rate 91 H 110 H Pulse Rate [ 93 H From Monitor] Respiratory 19 Rate Blood Pressure 116/67 116/67 O2 Sat by Pulse 100 100 99 Oximetry O2 Sat by Pulse Oximetry [ Assessment] 09/06/19 09:23 Temperature Pulse Rate 116 H Pulse Rate [ From Monitor] Respiratory Rate Blood Pressure 110/68 O2 Sat by Pulse Oximetry O2 Sat by Pulse Oximetry [ Assessment] Constitutional: appears uncomfortable, other (eelderly and chronically ill looking AAM, normocep[krystina;ic with mildly increased respiratory effort at rest) Eyes: non-icteric ENT: oropharynx moist Neck: supple, no lymphadenopathy, no JVD, other (+ midline tracheostomy tube) Effort: mildly labored Ascultation: Bilateral: diminished breath sounds, rhonchi Percussion: Bilateral: not dull Cardiovascular: regular rate and rhythm Gastrointestinal: normoactive bowel sounds, soft, non-tender, non-distended, other (+ PEG tube with mild TF leakage) Integumentary: decubitus ulcer (sacral) Extremities: no cyanosis, no edema, pink and warm, pulses normal Neurologic: pupils equal and round, unable to assess Psychiatric: other (Unable to assess re: AMS) CBC and BMP: 09/06/19 04:32 09/06/19 03:45 ABG, PT/INR, D-dimer: ABG ABG pH 7.407 pH Units (7.350-7.450) 09/01/19 17:00 ABG pCO2 40.4 mm Hg 09/01/19 17:00 ABG pO2 116.0 mm Hg (80.0-90.0) H 09/01/19 17:00 ABG O2 Saturation 98.2 % (95.0-99.0) 09/01/19 17:00 PT/INR, D-dimer PT 16.0 Sec. (12.2-14.9) H 07/03/19 22:20 INR 1.26 (0.87-1.13) H 07/03/19 22:20 D-Dimer 1808.06 ng/mlDDU (0-234) H 08/07/19 10:24 Abnormal lab findings: Abnormal Labs 07/03/19 07/03/19 07/03/19 19:57 21:10 21:13 WBC RBC Hgb Hct MCV MCH MCHC RDW Plt Count Lymph % (Auto) [place] % (Auto) Lymph # [place] # Baso # Seg Neutrophils % Seg Neuts % (Manual) Lymphocytes % (Manual) Monocytes % (Manual) Basophils % (Manual) Nucleated RBC % Seg Neutrophils # Seg Neutrophils # Man Lymphocytes # (Manual) Monocytes # (Manual) Eosinophils # (Manual) Basophils # (Manual) PT INR D-Dimer ABG pH 7.238 L ABG pO2 210.8 H ABG HCO3 15.4 L ABG O2 Saturation 99.2 H ABG Base Excess -11.1 L ABG Hemoglobin 8.0 L Oxyhemoglobin Sodium 124 L Potassium Chloride 92.9 L Carbon Dioxide 10 L BUN 23 H Creatinine 0.5 L Glucose 118 H POC Glucose Lactic Acid Calcium 7.0 L Magnesium Iron TIBC Ferritin AST 70 H ALT 88 H Lactate Dehydrogenase Troponin T 0.032 H C-Reactive Protein Total Protein 5.0 L Albumin 1.8 L Prealbumin Cholesterol 47 L LDL Cholesterol Direct 25 L HDL Cholesterol 20 L Urine WBC (Auto) 12.0 H Vancomycin Trough Coronavirus (PCR) Crossmatch 07/03/19 07/03/19 07/03/19 22:20 22:20 22:20 WBC 30.5 H RBC 2.96 L Hgb 7.7 L Hct 23.9 L MCV 81 L MCH 26 L MCHC RDW 18.6 H Plt Count 459 H Lymph % (Auto) [place] % (Auto) Lymph # [place] # Baso # Seg Neutrophils % Seg Neuts % (Manual) 93.0 H Lymphocytes % (Manual) 0.5 L Monocytes % (Manual) Basophils % (Manual) Nucleated RBC % Seg Neutrophils # Seg Neutrophils # Man 28.4 H Lymphocytes # (Manual) 0.2 L Monocytes # (Manual) Eosinophils # (Manual) Basophils # (Manual) PT 16.0 H INR 1.26 H D-Dimer ABG pH ABG pO2 ABG HCO3 ABG O2 Saturation ABG Base Excess ABG Hemoglobin Oxyhemoglobin Sodium Potassium Chloride Carbon Dioxide BUN Creatinine Glucose POC Glucose Lactic Acid 6.90 H* Calcium Magnesium Iron TIBC Ferritin AST ALT Lactate Dehydrogenase Troponin T C-Reactive Protein Total Protein Albumin Prealbumin Cholesterol LDL Cholesterol Direct HDL Cholesterol Urine WBC (Auto) Vancomycin Trough Coronavirus (PCR) Crossmatch 07/03/19 07/04/19 07/04/19 23:58 05:15 07:05 WBC 17.1 H RBC 3.22 L Hgb 8.3 L Hct 25.4 L MCV 79 L MCH 26 L MCHC RDW 18.6 H Plt Count Lymph % (Auto) [place] % (Auto) Lymph # [place] # Baso # Seg Neutrophils % Seg Neuts % (Manual) 74.0 H Lymphocytes % (Manual) 0 L Monocytes % (Manual) Basophils % (Manual) Nucleated RBC % Seg Neutrophils # Seg Neutrophils # Man 12.7 H Lymphocytes # (Manual) 0.0 L Monocytes # (Manual) Eosinophils # (Manual) Basophils # (Manual) PT INR D-Dimer ABG pH 7.310 L ABG pO2 73.2 L ABG HCO3 17.8 L ABG O2 Saturation 93.8 L ABG Base Excess -7.7 L ABG Hemoglobin 9.6 L Oxyhemoglobin 92.3 L Sodium Potassium Chloride Carbon Dioxide BUN Creatinine Glucose POC Glucose Lactic Acid 7.10 H* Calcium Magnesium Iron TIBC Ferritin AST ALT Lactate Dehydrogenase Troponin T C-Reactive Protein Total Protein Albumin Prealbumin Cholesterol LDL Cholesterol Direct HDL Cholesterol Urine WBC (Auto) Vancomycin Trough Coronavirus (PCR) Crossmatch 07/04/19 07/04/19 07/04/19 07:05 07:05 07:05 WBC RBC Hgb Hct MCV MCH MCHC RDW Plt Count Lymph % (Auto) [place] % (Auto) Lymph # [place] # Baso # Seg Neutrophils % Seg Neuts % (Manual) Lymphocytes % (Manual) Monocytes % (Manual) Basophils % (Manual) Nucleated RBC % Seg Neutrophils # Seg Neutrophils # Man Lymphocytes # (Manual) Monocytes # (Manual) Eosinophils # (Manual) Basophils # (Manual) PT INR D-Dimer ABG pH ABG pO2 ABG HCO3 ABG O2 Saturation ABG Base Excess ABG Hemoglobin Oxyhemoglobin Sodium 120 L Potassium 5.1 H Chloride 90.0 L Carbon Dioxide 14 L BUN 26 H Creatinine 0.5 L Glucose POC Glucose Lactic Acid 3.30 H* Calcium 8.0 L Magnesium Iron 9 L TIBC 97 L Ferritin AST 73 H ALT 91 H Lactate Dehydrogenase Troponin T C-Reactive Protein Total Protein 5.5 L Albumin 2.0 L Prealbumin Cholesterol LDL Cholesterol Direct HDL Cholesterol Urine WBC (Auto) Vancomycin Trough Coronavirus (PCR) Crossmatch 07/04/19 07/04/19 07/04/19 09:39 09:39 09:39 WBC RBC Hgb Hct MCV MCH MCHC RDW Plt Count Lymph % (Auto) [place] % (Auto) Lymph # [place] # Baso # Seg Neutrophils % Seg Neuts % (Manual) Lymphocytes % (Manual) Monocytes % (Manual) Basophils % (Manual) Nucleated RBC % Seg Neutrophils # Seg Neutrophils # Man Lymphocytes # (Manual) Monocytes # (Manual) Eosinophils # (Manual) Basophils # (Manual) PT INR D-Dimer 1419.14 H ABG pH ABG pO2 ABG HCO3 ABG O2 Saturation ABG Base Excess ABG Hemoglobin Oxyhemoglobin Sodium Potassium Chloride Carbon Dioxide BUN Creatinine Glucose POC Glucose Lactic Acid Calcium Magnesium Iron TIBC Ferritin 1719.0 H AST ALT Lactate Dehydrogenase 234 H Troponin T C-Reactive Protein 15.50 H Total Protein Albumin Prealbumin Cholesterol LDL Cholesterol Direct HDL Cholesterol Urine WBC (Auto) Vancomycin Trough Coronavirus (PCR) Crossmatch 07/04/19 07/04/19 07/04/19 10:09 18:08 18:28 WBC RBC Hgb Hct MCV MCH MCHC RDW Plt Count Lymph % (Auto) [place] % (Auto) Lymph # [place] # Baso # Seg Neutrophils % Seg Neuts % (Manual) Lymphocytes % (Manual) Monocytes % (Manual) Basophils % (Manual) Nucleated RBC % Seg Neutrophils # Seg Neutrophils # Man Lymphocytes # (Manual) Monocytes # (Manual) Eosinophils # (Manual) Basophils # (Manual) PT INR D-Dimer ABG pH ABG pO2 ABG HCO3 ABG O2 Saturation ABG Base Excess ABG Hemoglobin Oxyhemoglobin Sodium 117 L* Potassium 5.6 H Chloride 90.3 L Carbon Dioxide 16 L BUN 28 H Creatinine 0.5 L Glucose 58 L POC Glucose 65 L Lactic Acid Calcium 8.2 L Magnesium Iron TIBC Ferritin AST ALT Lactate Dehydrogenase Troponin T C-Reactive Protein Total Protein Albumin Prealbumin Cholesterol LDL Cholesterol Direct HDL Cholesterol Urine WBC (Auto) Vancomycin Trough Coronavirus (PCR) Positive A Crossmatch 07/04/19 07/04/19 07/04/19 23:45 Unknown Unknown WBC RBC Hgb Hct MCV MCH MCHC RDW Plt Count Lymph % (Auto) [place] % (Auto) Lymph # [place] # Baso # Seg Neutrophils % Seg Neuts % (Manual) Lymphocytes % (Manual) Monocytes % (Manual) Basophils % (Manual) Nucleated RBC % Seg Neutrophils # Seg Neutrophils # Man Lymphocytes # (Manual) Monocytes # (Manual) Eosinophils # (Manual) Basophils # (Manual) PT INR D-Dimer 759.77 H ABG pH ABG pO2 ABG HCO3 ABG O2 Saturation ABG Base Excess ABG Hemoglobin Oxyhemoglobin Sodium 122 L Potassium Chloride 93.0 L Carbon Dioxide 19 L BUN 27 H Creatinine 0.5 L Glucose POC Glucose Lactic Acid Calcium 8.3 L Magnesium Iron TIBC Ferritin 1301.0 H AST ALT Lactate Dehydrogenase Troponin T C-Reactive Protein Total Protein Albumin Prealbumin Cholesterol LDL Cholesterol Direct HDL Cholesterol Urine WBC (Auto) Vancomycin Trough Coronavirus (PCR) Crossmatch 07/04/19 07/05/19 07/05/19 Unknown 03:20 04:00 WBC RBC Hgb Hct MCV MCH MCHC RDW Plt Count Lymph % (Auto) [place] % (Auto) Lymph # [place] # Baso # Seg Neutrophils % Seg Neuts % (Manual) Lymphocytes % (Manual) Monocytes % (Manual) Basophils % (Manual) Nucleated RBC % Seg Neutrophils # Seg Neutrophils # Man Lymphocytes # (Manual) Monocytes # (Manual) Eosinophils # (Manual) Basophils # (Manual) PT INR D-Dimer ABG pH ABG pO2 60.6 L ABG HCO3 ABG O2 Saturation 93.5 L ABG Base Excess -2.4 L ABG Hemoglobin 6.9 L Oxyhemoglobin 92.0 L Sodium 125 L Potassium Chloride 92.6 L Carbon Dioxide 19 L BUN 24 H Creatinine 0.6 L Glucose POC Glucose Lactic Acid Calcium 8.2 L Magnesium 1.40 L Iron TIBC Ferritin AST ALT Lactate Dehydrogenase 242 H Troponin T C-Reactive Protein 16.70 H Total Protein Albumin Prealbumin Cholesterol LDL Cholesterol Direct HDL Cholesterol Urine WBC (Auto) Vancomycin Trough Coronavirus (PCR) Crossmatch 07/05/19 07/05/19 07/05/19 10:11 16:15 17:54 WBC 46.4 H* RBC 2.77 L Hgb 7.2 L Hct 21.9 L MCV 79 L MCH 26 L MCHC RDW 19.0 H Plt Count Lymph % (Auto) [place] % (Auto) Lymph # [place] # Baso # Seg Neutrophils % Seg Neuts % (Manual) 82.0 H Lymphocytes % (Manual) 1.0 L Monocytes % (Manual) Basophils % (Manual) Nucleated RBC % Seg Neutrophils # Seg Neutrophils # Man 38.0 H Lymphocytes # (Manual) 0.5 L Monocytes # (Manual) Eosinophils # (Manual) Basophils # (Manual) PT INR D-Dimer ABG pH ABG pO2 ABG HCO3 ABG O2 Saturation ABG Base Excess ABG Hemoglobin Oxyhemoglobin Sodium Potassium Chloride Carbon Dioxide BUN Creatinine Glucose POC Glucose 69 L Lactic Acid Calcium Magnesium Iron TIBC Ferritin AST ALT Lactate Dehydrogenase Troponin T C-Reactive Protein Total Protein Albumin Prealbumin Cholesterol LDL Cholesterol Direct HDL Cholesterol Urine WBC (Auto) Vancomycin Trough 23.2 H Coronavirus (PCR) Crossmatch 07/05/19 07/06/19 07/06/19 19:58 00:27 00:27 WBC RBC Hgb Hct MCV MCH MCHC RDW Plt Count Lymph % (Auto) [place] % (Auto) Lymph # [place] # Baso # Seg Neutrophils % Seg Neuts % (Manual) Lymphocytes % (Manual) Monocytes % (Manual) Basophils % (Manual) Nucleated RBC % Seg Neutrophils # Seg Neutrophils # Man Lymphocytes # (Manual) Monocytes # (Manual) Eosinophils # (Manual) Basophils # (Manual) PT INR D-Dimer 1333.22 H ABG pH ABG pO2 ABG HCO3 ABG O2 Saturation ABG Base Excess ABG Hemoglobin Oxyhemoglobin Sodium 127 L Potassium Chloride Carbon Dioxide BUN Creatinine Glucose POC Glucose Lactic Acid Calcium Magnesium Iron TIBC Ferritin 977.1 H AST ALT Lactate Dehydrogenase Troponin T C-Reactive Protein Total Protein Albumin Prealbumin Cholesterol LDL Cholesterol Direct HDL Cholesterol Urine WBC (Auto) Vancomycin Trough Coronavirus (PCR) Crossmatch 07/06/19 07/06/19 07/06/19 00:27 02:00 02:56 WBC RBC Hgb Hct MCV MCH MCHC RDW Plt Count Lymph % (Auto) [place] % (Auto) Lymph # [place] # Baso # Seg Neutrophils % Seg Neuts % (Manual) Lymphocytes % (Manual) Monocytes % (Manual) Basophils % (Manual) Nucleated RBC % Seg Neutrophils # Seg Neutrophils # Man Lymphocytes # (Manual) Monocytes # (Manual) Eosinophils # (Manual) Basophils # (Manual) PT INR D-Dimer ABG pH ABG pO2 70.3 L ABG HCO3 ABG O2 Saturation 94.8 L ABG Base Excess ABG Hemoglobin 8.0 L Oxyhemoglobin 93.2 L Sodium Potassium Chloride Carbon Dioxide BUN Creatinine Glucose POC Glucose 117 H Lactic Acid Calcium Magnesium Iron TIBC Ferritin AST ALT Lactate Dehydrogenase 236 H Troponin T C-Reactive Protein 22.90 H Total Protein Albumin Prealbumin Cholesterol LDL Cholesterol Direct HDL Cholesterol Urine WBC (Auto) Vancomycin Trough Coronavirus (PCR) Crossmatch 07/06/19 07/06/19 07/06/19 03:49 03:49 07:40 WBC 38.8 H RBC 2.51 L Hgb 6.7 L Hct 19.9 L* MCV 79 L MCH 27 L MCHC RDW 19.2 H Plt Count Lymph % (Auto) [place] % (Auto) Lymph # [place] # Baso # Seg Neutrophils % Seg Neuts % (Manual) 90.5 H Lymphocytes % (Manual) 1.0 L Monocytes % (Manual) Basophils % (Manual) Nucleated RBC % Seg Neutrophils # Seg Neutrophils # Man 35.1 H Lymphocytes # (Manual) 0.4 L Monocytes # (Manual) Eosinophils # (Manual) Basophils # (Manual) PT INR D-Dimer ABG pH ABG pO2 ABG HCO3 ABG O2 Saturation ABG Base Excess ABG Hemoglobin Oxyhemoglobin Sodium 131 L Potassium Chloride 96.9 L Carbon Dioxide 18 L BUN 23 H Creatinine 0.5 L Glucose POC Glucose Lactic Acid Calcium 8.0 L Magnesium Iron TIBC Ferritin AST ALT Lactate Dehydrogenase Troponin T C-Reactive Protein Total Protein Albumin Prealbumin Cholesterol LDL Cholesterol Direct HDL Cholesterol Urine WBC (Auto) Vancomycin Trough Coronavirus (PCR) Crossmatch See Detail 07/06/19 07/06/19 07/06/19 12:38 14:39 20:00 WBC RBC Hgb Hct MCV MCH MCHC RDW Plt Count Lymph % (Auto) [place] % (Auto) Lymph # [place] # Baso # Seg Neutrophils % Seg Neuts % (Manual) Lymphocytes % (Manual) Monocytes % (Manual) Basophils % (Manual) Nucleated RBC % Seg Neutrophils # Seg Neutrophils # Man Lymphocytes # (Manual) Monocytes # (Manual) Eosinophils # (Manual) Basophils # (Manual) PT INR D-Dimer ABG pH ABG pO2 ABG HCO3 ABG O2 Saturation ABG Base Excess ABG Hemoglobin Oxyhemoglobin Sodium Potassium Chloride Carbon Dioxide BUN Creatinine Glucose POC Glucose 112 H 111 H 140 H Lactic Acid Calcium Magnesium Iron TIBC Ferritin AST ALT Lactate Dehydrogenase Troponin T C-Reactive Protein Total Protein Albumin Prealbumin Cholesterol LDL Cholesterol Direct HDL Cholesterol Urine WBC (Auto) Vancomycin Trough Coronavirus (PCR) Crossmatch 07/06/19 07/06/19 07/07/19 22:43 22:56 02:20 WBC RBC Hgb 7.9 L Hct 23.1 L MCV MCH MCHC RDW Plt Count Lymph % (Auto) [place] % (Auto) Lymph # [place] # Baso # Seg Neutrophils % Seg Neuts % (Manual) Lymphocytes % (Manual) Monocytes % (Manual) Basophils % (Manual) Nucleated RBC % Seg Neutrophils # Seg Neutrophils # Man Lymphocytes # (Manual) Monocytes # (Manual) Eosinophils # (Manual) Basophils # (Manual) PT INR D-Dimer ABG pH ABG pO2 ABG HCO3 ABG O2 Saturation ABG Base Excess ABG Hemoglobin Oxyhemoglobin Sodium Potassium Chloride Carbon Dioxide BUN Creatinine Glucose POC Glucose 122 H 149 H Lactic Acid Calcium Magnesium Iron TIBC Ferritin AST ALT Lactate Dehydrogenase Troponin T C-Reactive Protein Total Protein Albumin Prealbumin Cholesterol LDL Cholesterol Direct HDL Cholesterol Urine WBC (Auto) Vancomycin Trough Coronavirus (PCR) Crossmatch 07/07/19 07/07/19 07/07/19 04:35 05:27 05:34 WBC 23.1 H RBC 3.00 L Hgb 8.1 L Hct 24.2 L MCV 81 L MCH 27 L MCHC RDW 20.6 H Plt Count Lymph % (Auto) [place] % (Auto) Lymph # [place] # Baso # Seg Neutrophils % Seg Neuts % (Manual) 90.0 H Lymphocytes % (Manual) 2.0 L Monocytes % (Manual) Basophils % (Manual) Nucleated RBC % Seg Neutrophils # Seg Neutrophils # Man 20.8 H Lymphocytes # (Manual) 0.5 L Monocytes # (Manual) Eosinophils # (Manual) Basophils # (Manual) PT INR D-Dimer ABG pH ABG pO2 65.8 L ABG HCO3 ABG O2 Saturation 92.2 L ABG Base Excess ABG Hemoglobin 8.3 L Oxyhemoglobin 90.6 L Sodium Potassium Chloride Carbon Dioxide BUN Creatinine Glucose POC Glucose 132 H Lactic Acid Calcium Magnesium Iron TIBC Ferritin AST ALT Lactate Dehydrogenase Troponin T C-Reactive Protein Total Protein Albumin Prealbumin Cholesterol LDL Cholesterol Direct HDL Cholesterol Urine WBC (Auto) Vancomycin Trough Coronavirus (PCR) Crossmatch 07/07/19 07/07/19 07/07/19 05:34 11:50 15:58 WBC RBC Hgb 8.1 L Hct 24.2 L MCV MCH MCHC RDW Plt Count Lymph % (Auto) [place] % (Auto) Lymph # [place] # Baso # Seg Neutrophils % Seg Neuts % (Manual) Lymphocytes % (Manual) Monocytes % (Manual) Basophils % (Manual) Nucleated RBC % Seg Neutrophils # Seg Neutrophils # Man Lymphocytes # (Manual) Monocytes # (Manual) Eosinophils # (Manual) Basophils # (Manual) PT INR D-Dimer ABG pH ABG pO2 ABG HCO3 ABG O2 Saturation ABG Base Excess ABG Hemoglobin Oxyhemoglobin Sodium 135 L Potassium 3.3 L Chloride Carbon Dioxide 20 L BUN 27 H Creatinine 0.6 L Glucose 121 H POC Glucose 123 H Lactic Acid Calcium 8.0 L Magnesium Iron TIBC Ferritin AST ALT Lactate Dehydrogenase Troponin T C-Reactive Protein Total Protein Albumin Prealbumin Cholesterol LDL Cholesterol Direct HDL Cholesterol Urine WBC (Auto) Vancomycin Trough Coronavirus (PCR) Crossmatch 07/07/19 07/07/19 07/07/19 17:42 22:00 23:53 WBC RBC Hgb 8.0 L Hct 23.4 L MCV MCH MCHC RDW Plt Count Lymph % (Auto) [place] % (Auto) Lymph # [place] # Baso # Seg Neutrophils % Seg Neuts % (Manual) Lymphocytes % (Manual) Monocytes % (Manual) Basophils % (Manual) Nucleated RBC % Seg Neutrophils # Seg Neutrophils # Man Lymphocytes # (Manual) Monocytes # (Manual) Eosinophils # (Manual) Basophils # (Manual) PT INR D-Dimer ABG pH ABG pO2 ABG HCO3 ABG O2 Saturation ABG Base Excess ABG Hemoglobin Oxyhemoglobin Sodium Potassium Chloride Carbon Dioxide BUN Creatinine Glucose POC Glucose 107 H 117 H Lactic Acid Calcium Magnesium Iron TIBC Ferritin AST ALT Lactate Dehydrogenase Troponin T C-Reactive Protein Total Protein Albumin Prealbumin Cholesterol LDL Cholesterol Direct HDL Cholesterol Urine WBC (Auto) Vancomycin Trough Coronavirus (PCR) Crossmatch 07/08/19 07/08/19 07/08/19 00:45 00:45 00:45 WBC RBC Hgb Hct MCV MCH MCHC RDW Plt Count Lymph % (Auto) [place] % (Auto) Lymph # [place] # Baso # Seg Neutrophils % Seg Neuts % (Manual) Lymphocytes % (Manual) Monocytes % (Manual) Basophils % (Manual) Nucleated RBC % Seg Neutrophils # Seg Neutrophils # Man Lymphocytes # (Manual) Monocytes # (Manual) Eosinophils # (Manual) Basophils # (Manual) PT INR D-Dimer 1142.18 H ABG pH ABG pO2 ABG HCO3 ABG O2 Saturation ABG Base Excess ABG Hemoglobin Oxyhemoglobin Sodium Potassium Chloride Carbon Dioxide BUN Creatinine Glucose POC Glucose Lactic Acid Calcium Magnesium Iron TIBC Ferritin 839.0 H AST ALT Lactate Dehydrogenase 253 H Troponin T C-Reactive Protein 18.90 H Total Protein Albumin Prealbumin Cholesterol LDL Cholesterol Direct HDL Cholesterol Urine WBC (Auto) Vancomycin Trough Coronavirus (PCR) Crossmatch 07/08/19 07/08/19 07/08/19 04:30 05:11 12:02 WBC RBC Hgb Hct MCV MCH MCHC RDW Plt Count Lymph % (Auto) [place] % (Auto) Lymph # [place] # Baso # Seg Neutrophils % Seg Neuts % (Manual) Lymphocytes % (Manual) Monocytes % (Manual) Basophils % (Manual) Nucleated RBC % Seg Neutrophils # Seg Neutrophils # Man Lymphocytes # (Manual) Monocytes # (Manual) Eosinophils # (Manual) Basophils # (Manual) PT INR D-Dimer ABG pH ABG pO2 66.0 L ABG HCO3 ABG O2 Saturation 92.3 L ABG Base Excess ABG Hemoglobin 7.7 L Oxyhemoglobin 90.7 L Sodium Potassium Chloride Carbon Dioxide BUN Creatinine Glucose POC Glucose 108 H 153 H Lactic Acid Calcium Magnesium Iron TIBC Ferritin AST ALT Lactate Dehydrogenase Troponin T C-Reactive Protein Total Protein Albumin Prealbumin Cholesterol LDL Cholesterol Direct HDL Cholesterol Urine WBC (Auto) Vancomycin Trough Coronavirus (PCR) Crossmatch 07/08/19 07/08/19 07/08/19 16:15 18:22 23:35 WBC RBC Hgb Hct MCV MCH MCHC RDW Plt Count Lymph % (Auto) [place] % (Auto) Lymph # [place] # Baso # Seg Neutrophils % Seg Neuts % (Manual) Lymphocytes % (Manual) Monocytes % (Manual) Basophils % (Manual) Nucleated RBC % Seg Neutrophils # Seg Neutrophils # Man Lymphocytes # (Manual) Monocytes # (Manual) Eosinophils # (Manual) Basophils # (Manual) PT INR D-Dimer ABG pH ABG pO2 ABG HCO3 ABG O2 Saturation ABG Base Excess ABG Hemoglobin Oxyhemoglobin Sodium 134 L Potassium 3.3 L Chloride Carbon Dioxide 21 L BUN 27 H Creatinine 0.6 L Glucose 146 H POC Glucose 134 H 133 H Lactic Acid Calcium Magnesium Iron TIBC Ferritin AST ALT Lactate Dehydrogenase Troponin T C-Reactive Protein Total Protein Albumin Prealbumin Cholesterol LDL Cholesterol Direct HDL Cholesterol Urine WBC (Auto) Vancomycin Trough Coronavirus (PCR) Crossmatch 07/09/19 07/09/19 07/09/19 04:30 04:30 05:00 WBC 18.9 H RBC 2.77 L Hgb 7.4 L Hct 22.8 L MCV 82 L MCH 27 L MCHC RDW 20.9 H Plt Count 130 L Lymph % (Auto) [place] % (Auto) Lymph # [place] # Baso # Seg Neutrophils % Seg Neuts % (Manual) 84.0 H Lymphocytes % (Manual) 0 L Monocytes % (Manual) Basophils % (Manual) Nucleated RBC % Seg Neutrophils # Seg Neutrophils # Man 15.9 H Lymphocytes # (Manual) 0.0 L Monocytes # (Manual) Eosinophils # (Manual) Basophils # (Manual) PT INR D-Dimer ABG pH ABG pO2 ABG HCO3 ABG O2 Saturation ABG Base Excess ABG Hemoglobin Oxyhemoglobin Sodium Potassium 3.1 L Chloride Carbon Dioxide BUN 26 H Creatinine 0.5 L Glucose 125 H POC Glucose 155 H Lactic Acid Calcium Magnesium Iron TIBC Ferritin AST ALT Lactate Dehydrogenase Troponin T C-Reactive Protein Total Protein Albumin Prealbumin Cholesterol LDL Cholesterol Direct HDL Cholesterol Urine WBC (Auto) Vancomycin Trough Coronavirus (PCR) Crossmatch 07/09/19 07/09/19 07/09/19 05:55 12:22 17:50 WBC RBC Hgb Hct MCV MCH MCHC RDW Plt Count Lymph % (Auto) [place] % (Auto) Lymph # [place] # Baso # Seg Neutrophils % Seg Neuts % (Manual) Lymphocytes % (Manual) Monocytes % (Manual) Basophils % (Manual) Nucleated RBC % Seg Neutrophils # Seg Neutrophils # Man Lymphocytes # (Manual) Monocytes # (Manual) Eosinophils # (Manual) Basophils # (Manual) PT INR D-Dimer ABG pH ABG pO2 62.8 L ABG HCO3 ABG O2 Saturation ABG Base Excess ABG Hemoglobin 6.1 L Oxyhemoglobin 93.9 L Sodium Potassium Chloride Carbon Dioxide BUN Creatinine Glucose POC Glucose 115 H 133 H Lactic Acid Calcium Magnesium Iron TIBC Ferritin AST ALT Lactate Dehydrogenase Troponin T C-Reactive Protein Total Protein Albumin Prealbumin Cholesterol LDL Cholesterol Direct HDL Cholesterol Urine WBC (Auto) Vancomycin Trough Coronavirus (PCR) Crossmatch 07/10/19 07/10/19 07/10/19 00:38 04:00 04:00 WBC RBC Hgb Hct MCV MCH MCHC RDW Plt Count Lymph % (Auto) [place] % (Auto) Lymph # [place] # Baso # Seg Neutrophils % Seg Neuts % (Manual) Lymphocytes % (Manual) Monocytes % (Manual) Basophils % (Manual) Nucleated RBC % Seg Neutrophils # Seg Neutrophils # Man Lymphocytes # (Manual) Monocytes # (Manual) Eosinophils # (Manual) Basophils # (Manual) PT INR D-Dimer ABG pH ABG pO2 ABG HCO3 ABG O2 Saturation ABG Base Excess ABG Hemoglobin Oxyhemoglobin Sodium Potassium Chloride 107.9 H Carbon Dioxide BUN 26 H Creatinine 0.4 L Glucose 137 H POC Glucose 122 H Lactic Acid Calcium Magnesium 1.50 L Iron TIBC Ferritin AST ALT Lactate Dehydrogenase 277 H Troponin T C-Reactive Protein 15.10 H Total Protein Albumin Prealbumin Cholesterol LDL Cholesterol Direct HDL Cholesterol Urine WBC (Auto) Vancomycin Trough Coronavirus (PCR) Crossmatch 07/10/19 07/10/19 07/10/19 04:07 05:21 17:25 WBC RBC Hgb Hct MCV MCH MCHC RDW Plt Count Lymph % (Auto) [place] % (Auto) Lymph # [place] # Baso # Seg Neutrophils % Seg Neuts % (Manual) Lymphocytes % (Manual) Monocytes % (Manual) Basophils % (Manual) Nucleated RBC % Seg Neutrophils # Seg Neutrophils # Man Lymphocytes # (Manual) Monocytes # (Manual) Eosinophils # (Manual) Basophils # (Manual) PT INR D-Dimer ABG pH ABG pO2 65.6 L ABG HCO3 26.3 H ABG O2 Saturation ABG Base Excess ABG Hemoglobin 6.7 L Oxyhemoglobin Sodium Potassium Chloride Carbon Dioxide BUN Creatinine Glucose POC Glucose 144 H 113 H Lactic Acid Calcium Magnesium Iron TIBC Ferritin AST ALT Lactate Dehydrogenase Troponin T C-Reactive Protein Total Protein Albumin Prealbumin Cholesterol LDL Cholesterol Direct HDL Cholesterol Urine WBC (Auto) Vancomycin Trough Coronavirus (PCR) Crossmatch 07/11/19 07/11/19 07/11/19 00:07 05:14 05:25 WBC RBC Hgb Hct MCV MCH MCHC RDW Plt Count Lymph % (Auto) [place] % (Auto) Lymph # [place] # Baso # Seg Neutrophils % Seg Neuts % (Manual) Lymphocytes % (Manual) Monocytes % (Manual) Basophils % (Manual) Nucleated RBC % Seg Neutrophils # Seg Neutrophils # Man Lymphocytes # (Manual) Monocytes # (Manual) Eosinophils # (Manual) Basophils # (Manual) PT INR D-Dimer ABG pH ABG pO2 ABG HCO3 ABG O2 Saturation ABG Base Excess ABG Hemoglobin 5.8 L Oxyhemoglobin Sodium Potassium Chloride 108.0 H Carbon Dioxide BUN 26 H Creatinine 0.4 L Glucose 110 H POC Glucose 121 H Lactic Acid Calcium Magnesium Iron TIBC Ferritin AST ALT Lactate Dehydrogenase Troponin T C-Reactive Protein Total Protein Albumin Prealbumin Cholesterol LDL Cholesterol Direct HDL Cholesterol Urine WBC (Auto) Vancomycin Trough Coronavirus (PCR) Crossmatch 07/11/19 07/11/19 07/11/19 12:27 18:00 23:42 WBC RBC Hgb Hct MCV MCH MCHC RDW Plt Count Lymph % (Auto) [place] % (Auto) Lymph # [place] # Baso # Seg Neutrophils % Seg Neuts % (Manual) Lymphocytes % (Manual) Monocytes % (Manual) Basophils % (Manual) Nucleated RBC % Seg Neutrophils # Seg Neutrophils # Man Lymphocytes # (Manual) Monocytes # (Manual) Eosinophils # (Manual) Basophils # (Manual) PT INR D-Dimer ABG pH ABG pO2 ABG HCO3 ABG O2 Saturation ABG Base Excess ABG Hemoglobin Oxyhemoglobin Sodium Potassium Chloride Carbon Dioxide BUN Creatinine Glucose POC Glucose 158 H 141 H 142 H Lactic Acid Calcium Magnesium Iron TIBC Ferritin AST ALT Lactate Dehydrogenase Troponin T C-Reactive Protein Total Protein Albumin Prealbumin Cholesterol LDL Cholesterol Direct HDL Cholesterol Urine WBC (Auto) Vancomycin Trough Coronavirus (PCR) Crossmatch 07/12/19 07/12/19 07/12/19 04:46 04:46 05:23 WBC 23.6 H RBC 2.51 L Hgb 6.7 L Hct 20.8 L MCV 83 L MCH 27 L MCHC RDW 20.3 H Plt Count Lymph % (Auto) [place] % (Auto) Lymph # [place] # Baso # Seg Neutrophils % Seg Neuts % (Manual) 94.0 H Lymphocytes % (Manual) 4.0 L Monocytes % (Manual) Basophils % (Manual) Nucleated RBC % Seg Neutrophils # Seg Neutrophils # Man 22.2 H Lymphocytes # (Manual) 0.9 L Monocytes # (Manual) Eosinophils # (Manual) Basophils # (Manual) PT INR D-Dimer ABG pH ABG pO2 ABG HCO3 ABG O2 Saturation ABG Base Excess ABG Hemoglobin Oxyhemoglobin Sodium Potassium Chloride 107.1 H Carbon Dioxide BUN 25 H Creatinine 0.4 L Glucose 122 H POC Glucose 118 H Lactic Acid Calcium Magnesium Iron TIBC Ferritin AST ALT Lactate Dehydrogenase Troponin T C-Reactive Protein Total Protein Albumin Prealbumin Cholesterol LDL Cholesterol Direct HDL Cholesterol Urine WBC (Auto) Vancomycin Trough Coronavirus (PCR) Crossmatch 07/12/19 07/12/19 07/12/19 08:49 11:36 18:15 WBC RBC Hgb Hct MCV MCH MCHC RDW Plt Count Lymph % (Auto) [place] % (Auto) Lymph # [place] # Baso # Seg Neutrophils % Seg Neuts % (Manual) Lymphocytes % (Manual) Monocytes % (Manual) Basophils % (Manual) Nucleated RBC % Seg Neutrophils # Seg Neutrophils # Man Lymphocytes # (Manual) Monocytes # (Manual) Eosinophils # (Manual) Basophils # (Manual) PT INR D-Dimer ABG pH ABG pO2 ABG HCO3 ABG O2 Saturation ABG Base Excess ABG Hemoglobin Oxyhemoglobin Sodium Potassium Chloride Carbon Dioxide BUN Creatinine Glucose POC Glucose 124 H 110 H Lactic Acid Calcium Magnesium Iron TIBC Ferritin AST ALT Lactate Dehydrogenase Troponin T C-Reactive Protein Total Protein Albumin Prealbumin Cholesterol LDL Cholesterol Direct HDL Cholesterol Urine WBC (Auto) Vancomycin Trough Coronavirus (PCR) Crossmatch See Detail 07/12/19 07/13/19 07/13/19 23:16 05:26 06:50 WBC 23.9 H RBC 2.58 L Hgb 6.9 L Hct 21.5 L MCV 83 L MCH 27 L MCHC RDW 19.0 H Plt Count Lymph % (Auto) [place] % (Auto) Lymph # [place] # Baso # Seg Neutrophils % Seg Neuts % (Manual) 96.0 H Lymphocytes % (Manual) 3.0 L Monocytes % (Manual) Basophils % (Manual) Nucleated RBC % Seg Neutrophils # Seg Neutrophils # Man 22.9 H Lymphocytes # (Manual) 0.7 L Monocytes # (Manual) Eosinophils # (Manual) Basophils # (Manual) PT INR D-Dimer ABG pH ABG pO2 ABG HCO3 ABG O2 Saturation ABG Base Excess ABG Hemoglobin Oxyhemoglobin Sodium Potassium Chloride Carbon Dioxide BUN Creatinine Glucose POC Glucose 108 H 126 H Lactic Acid Calcium Magnesium Iron TIBC Ferritin AST ALT Lactate Dehydrogenase Troponin T C-Reactive Protein Total Protein Albumin Prealbumin Cholesterol LDL Cholesterol Direct HDL Cholesterol Urine WBC (Auto) Vancomycin Trough Coronavirus (PCR) Crossmatch 07/13/19 07/13/19 07/13/19 06:50 12:38 18:05 WBC RBC Hgb Hct MCV MCH MCHC RDW Plt Count Lymph % (Auto) [place] % (Auto) Lymph # [place] # Baso # Seg Neutrophils % Seg Neuts % (Manual) Lymphocytes % (Manual) Monocytes % (Manual) Basophils % (Manual) Nucleated RBC % Seg Neutrophils # Seg Neutrophils # Man Lymphocytes # (Manual) Monocytes # (Manual) Eosinophils # (Manual) Basophils # (Manual) PT INR D-Dimer ABG pH ABG pO2 ABG HCO3 ABG O2 Saturation ABG Base Excess ABG Hemoglobin Oxyhemoglobin Sodium Potassium Chloride Carbon Dioxide BUN 33 H Creatinine 0.5 L Glucose 136 H POC Glucose 164 H 145 H Lactic Acid Calcium Magnesium Iron TIBC Ferritin AST ALT Lactate Dehydrogenase Troponin T C-Reactive Protein Total Protein Albumin Prealbumin Cholesterol LDL Cholesterol Direct HDL Cholesterol Urine WBC (Auto) Vancomycin Trough Coronavirus (PCR) Crossmatch 07/13/19 07/14/19 07/14/19 18:30 00:21 04:40 WBC 22.9 H RBC 2.45 L Hgb 6.6 L Hct 21.1 L MCV MCH 27 L MCHC 31 L RDW 19.2 H Plt Count Lymph % (Auto) [place] % (Auto) Lymph # [place] # Baso # Seg Neutrophils % Seg Neuts % (Manual) 91.0 H Lymphocytes % (Manual) 7.0 L Monocytes % (Manual) Basophils % (Manual) Nucleated RBC % Seg Neutrophils # Seg Neutrophils # Man 20.8 H Lymphocytes # (Manual) Monocytes # (Manual) Eosinophils # (Manual) Basophils # (Manual) PT INR D-Dimer ABG pH ABG pO2 58.1 L ABG HCO3 ABG O2 Saturation 88.7 L ABG Base Excess ABG Hemoglobin 7.8 L Oxyhemoglobin 86.8 L Sodium Potassium Chloride Carbon Dioxide BUN Creatinine Glucose POC Glucose 118 H Lactic Acid Calcium Magnesium Iron TIBC Ferritin AST ALT Lactate Dehydrogenase Troponin T C-Reactive Protein Total Protein Albumin Prealbumin Cholesterol LDL Cholesterol Direct HDL Cholesterol Urine WBC (Auto) Vancomycin Trough Coronavirus (PCR) Crossmatch 07/14/19 07/14/19 07/14/19 04:40 05:38 05:45 WBC RBC Hgb Hct MCV MCH MCHC RDW Plt Count Lymph % (Auto) [place] % (Auto) Lymph # [place] # Baso # Seg Neutrophils % Seg Neuts % (Manual) Lymphocytes % (Manual) Monocytes % (Manual) Basophils % (Manual) Nucleated RBC % Seg Neutrophils # Seg Neutrophils # Man Lymphocytes # (Manual) Monocytes # (Manual) Eosinophils # (Manual) Basophils # (Manual) PT INR D-Dimer ABG pH 7.230 L ABG pO2 72.1 L ABG HCO3 ABG O2 Saturation 89.3 L ABG Base Excess -2.7 L ABG Hemoglobin 6.7 L Oxyhemoglobin 87.7 L Sodium Potassium Chloride 107.4 H Carbon Dioxide BUN 45 H Creatinine Glucose 101 H POC Glucose 154 H Lactic Acid Calcium Magnesium Iron TIBC Ferritin AST ALT Lactate Dehydrogenase Troponin T C-Reactive Protein Total Protein Albumin Prealbumin Cholesterol LDL Cholesterol Direct HDL Cholesterol Urine WBC (Auto) Vancomycin Trough Coronavirus (PCR) Crossmatch 07/14/19 07/14/19 07/14/19 12:25 18:20 19:01 WBC 22.4 H RBC 2.70 L Hgb 7.5 L Hct 23.3 L MCV MCH MCHC RDW 19.5 H Plt Count Lymph % (Auto) [place] % (Auto) Lymph # [place] # Baso # Seg Neutrophils % Seg Neuts % (Manual) Lymphocytes % (Manual) Monocytes % (Manual) Basophils % (Manual) Nucleated RBC % Seg Neutrophils # Seg Neutrophils # Man Lymphocytes # (Manual) Monocytes # (Manual) Eosinophils # (Manual) Basophils # (Manual) PT INR D-Dimer ABG pH ABG pO2 ABG HCO3 ABG O2 Saturation ABG Base Excess ABG Hemoglobin Oxyhemoglobin Sodium Potassium Chloride Carbon Dioxide BUN Creatinine Glucose POC Glucose 136 H 131 H Lactic Acid Calcium Magnesium Iron TIBC Ferritin AST ALT Lactate Dehydrogenase Troponin T C-Reactive Protein Total Protein Albumin Prealbumin Cholesterol LDL Cholesterol Direct HDL Cholesterol Urine WBC (Auto) Vancomycin Trough Coronavirus (PCR) Crossmatch 07/15/19 07/15/19 07/15/19 00:17 04:35 05:18 WBC 20.6 H RBC 2.41 L Hgb 6.8 L Hct 20.7 L MCV MCH MCHC RDW 20.2 H Plt Count Lymph % (Auto) [place] % (Auto) Lymph # [place] # Baso # Seg Neutrophils % Seg Neuts % (Manual) 92.0 H Lymphocytes % (Manual) 5.0 L Monocytes % (Manual) Basophils % (Manual) Nucleated RBC % Seg Neutrophils # Seg Neutrophils # Man 19.0 H Lymphocytes # (Manual) 1.0 L Monocytes # (Manual) Eosinophils # (Manual) Basophils # (Manual) PT INR D-Dimer ABG pH 7.342 L ABG pO2 ABG HCO3 ABG O2 Saturation ABG Base Excess -3.1 L ABG Hemoglobin 7.2 L Oxyhemoglobin 94.9 L Sodium Potassium Chloride Carbon Dioxide BUN Creatinine Glucose POC Glucose 116 H Lactic Acid Calcium Magnesium Iron TIBC Ferritin AST ALT Lactate Dehydrogenase Troponin T C-Reactive Protein Total Protein Albumin Prealbumin Cholesterol LDL Cholesterol Direct HDL Cholesterol Urine WBC (Auto) Vancomycin Trough Coronavirus (PCR) Crossmatch 07/15/19 07/15/19 07/15/19 05:18 05:57 11:28 WBC RBC Hgb Hct MCV MCH MCHC RDW Plt Count Lymph % (Auto) [place] % (Auto) Lymph # [place] # Baso # Seg Neutrophils % Seg Neuts % (Manual) Lymphocytes % (Manual) Monocytes % (Manual) Basophils % (Manual) Nucleated RBC % Seg Neutrophils # Seg Neutrophils # Man Lymphocytes # (Manual) Monocytes # (Manual) Eosinophils # (Manual) Basophils # (Manual) PT INR D-Dimer ABG pH ABG pO2 ABG HCO3 ABG O2 Saturation ABG Base Excess ABG Hemoglobin Oxyhemoglobin Sodium Potassium Chloride Carbon Dioxide 20 L BUN 59 H Creatinine Glucose 140 H POC Glucose 139 H 117 H Lactic Acid Calcium Magnesium Iron TIBC Ferritin AST ALT Lactate Dehydrogenase Troponin T C-Reactive Protein Total Protein Albumin Prealbumin Cholesterol LDL Cholesterol Direct HDL Cholesterol Urine WBC (Auto) Vancomycin Trough Coronavirus (PCR) Crossmatch 07/15/19 07/16/19 07/16/19 18:13 00:06 03:43 WBC RBC Hgb Hct MCV MCH MCHC RDW Plt Count Lymph % (Auto) [place] % (Auto) Lymph # [place] # Baso # Seg Neutrophils % Seg Neuts % (Manual) Lymphocytes % (Manual) Monocytes % (Manual) Basophils % (Manual) Nucleated RBC % Seg Neutrophils # Seg Neutrophils # Man Lymphocytes # (Manual) Monocytes # (Manual) Eosinophils # (Manual) Basophils # (Manual) PT INR D-Dimer ABG pH 7.344 L ABG pO2 68.6 L ABG HCO3 ABG O2 Saturation ABG Base Excess -3.5 L ABG Hemoglobin 6.1 L Oxyhemoglobin 93.3 L Sodium Potassium Chloride Carbon Dioxide BUN Creatinine Glucose POC Glucose 114 H 119 H Lactic Acid Calcium Magnesium Iron TIBC Ferritin AST ALT Lactate Dehydrogenase Troponin T C-Reactive Protein Total Protein Albumin Prealbumin Cholesterol LDL Cholesterol Direct HDL Cholesterol Urine WBC (Auto) Vancomycin Trough Coronavirus (PCR) Crossmatch 07/16/19 07/16/19 07/16/19 04:41 04:41 12:09 WBC 19.6 H RBC 2.81 L Hgb 7.7 L Hct 24.0 L MCV MCH 27 L MCHC RDW 19.4 H Plt Count 514 H Lymph % (Auto) 6.7 L [place] % (Auto) Lymph # [place] # 1.0 H Baso # Seg Neutrophils % 87.0 H Seg Neuts % (Manual) Lymphocytes % (Manual) Monocytes % (Manual) Basophils % (Manual) Nucleated RBC % Seg Neutrophils # 17.0 H Seg Neutrophils # Man Lymphocytes # (Manual) Monocytes # (Manual) Eosinophils # (Manual) Basophils # (Manual) PT INR D-Dimer ABG pH ABG pO2 ABG HCO3 ABG O2 Saturation ABG Base Excess ABG Hemoglobin Oxyhemoglobin Sodium Potassium 5.9 H Chloride Carbon Dioxide 21 L BUN 73 H Creatinine 2.0 H Glucose POC Glucose 141 H Lactic Acid Calcium Magnesium Iron TIBC Ferritin AST ALT Lactate Dehydrogenase Troponin T C-Reactive Protein Total Protein Albumin Prealbumin Cholesterol LDL Cholesterol Direct HDL Cholesterol Urine WBC (Auto) Vancomycin Trough Coronavirus (PCR) Crossmatch 07/16/19 07/16/19 07/17/19 16:19 17:45 00:16 WBC RBC Hgb Hct MCV MCH MCHC RDW Plt Count Lymph % (Auto) [place] % (Auto) Lymph # [place] # Baso # Seg Neutrophils % Seg Neuts % (Manual) Lymphocytes % (Manual) Monocytes % (Manual) Basophils % (Manual) Nucleated RBC % Seg Neutrophils # Seg Neutrophils # Man Lymphocytes # (Manual) Monocytes # (Manual) Eosinophils # (Manual) Basophils # (Manual) PT INR D-Dimer ABG pH ABG pO2 ABG HCO3 ABG O2 Saturation ABG Base Excess ABG Hemoglobin Oxyhemoglobin Sodium Potassium 5.1 H Chloride Carbon Dioxide 20 L BUN 72 H Creatinine 1.7 H Glucose 128 H POC Glucose 181 H 164 H Lactic Acid Calcium Magnesium Iron TIBC Ferritin AST ALT Lactate Dehydrogenase Troponin T C-Reactive Protein Total Protein Albumin Prealbumin Cholesterol LDL Cholesterol Direct HDL Cholesterol Urine WBC (Auto) Vancomycin Trough Coronavirus (PCR) Crossmatch 07/17/19 07/17/19 07/17/19 04:20 04:39 04:39 WBC 16.1 H RBC 2.92 L Hgb 8.0 L Hct 25.5 L MCV MCH MCHC 31 L RDW 19.7 H Plt Count 564 H Lymph % (Auto) 3.6 L [place] % (Auto) 7.4 H Lymph # 0.6 L [place] # 1.2 H Baso # Seg Neutrophils % 87.5 H Seg Neuts % (Manual) Lymphocytes % (Manual) Monocytes % (Manual) Basophils % (Manual) Nucleated RBC % Seg Neutrophils # 14.1 H Seg Neutrophils # Man Lymphocytes # (Manual) Monocytes # (Manual) Eosinophils # (Manual) Basophils # (Manual) PT INR D-Dimer ABG pH 7.231 L ABG pO2 95.3 H ABG HCO3 ABG O2 Saturation ABG Base Excess -5.0 L ABG Hemoglobin 7.9 L Oxyhemoglobin 94.8 L Sodium Potassium Chloride 107.8 H Carbon Dioxide 21 L BUN 68 H Creatinine Glucose POC Glucose Lactic Acid Calcium Magnesium Iron TIBC Ferritin AST ALT Lactate Dehydrogenase Troponin T C-Reactive Protein Total Protein Albumin Prealbumin Cholesterol LDL Cholesterol Direct HDL Cholesterol Urine WBC (Auto) Vancomycin Trough Coronavirus (PCR) Crossmatch 07/17/19 07/17/19 07/17/19 05:28 12:11 18:48 WBC RBC Hgb Hct MCV MCH MCHC RDW Plt Count Lymph % (Auto) [place] % (Auto) Lymph # [place] # Baso # Seg Neutrophils % Seg Neuts % (Manual) Lymphocytes % (Manual) Monocytes % (Manual) Basophils % (Manual) Nucleated RBC % Seg Neutrophils # Seg Neutrophils # Man Lymphocytes # (Manual) Monocytes # (Manual) Eosinophils # (Manual) Basophils # (Manual) PT INR D-Dimer ABG pH ABG pO2 ABG HCO3 ABG O2 Saturation ABG Base Excess ABG Hemoglobin Oxyhemoglobin Sodium Potassium Chloride Carbon Dioxide BUN Creatinine Glucose POC Glucose 121 H 125 H 174 H Lactic Acid Calcium Magnesium Iron TIBC Ferritin AST ALT Lactate Dehydrogenase Troponin T C-Reactive Protein Total Protein Albumin Prealbumin Cholesterol LDL Cholesterol Direct HDL Cholesterol Urine WBC (Auto) Vancomycin Trough Coronavirus (PCR) Crossmatch 07/17/19 07/17/19 07/18/19 19:55 23:57 02:30 WBC RBC Hgb Hct MCV MCH MCHC RDW Plt Count Lymph % (Auto) [place] % (Auto) Lymph # [place] # Baso # Seg Neutrophils % Seg Neuts % (Manual) Lymphocytes % (Manual) Monocytes % (Manual) Basophils % (Manual) Nucleated RBC % Seg Neutrophils # Seg Neutrophils # Man Lymphocytes # (Manual) Monocytes # (Manual) Eosinophils # (Manual) Basophils # (Manual) PT INR D-Dimer ABG pH 7.344 L 7.294 L ABG pO2 78.5 L 119.2 H ABG HCO3 ABG O2 Saturation ABG Base Excess -3.3 L -2.6 L ABG Hemoglobin 8.6 L 8.1 L Oxyhemoglobin 94.8 L Sodium Potassium Chloride Carbon Dioxide BUN Creatinine Glucose POC Glucose 148 H Lactic Acid Calcium Magnesium Iron TIBC Ferritin AST ALT Lactate Dehydrogenase Troponin T C-Reactive Protein Total Protein Albumin Prealbumin Cholesterol LDL Cholesterol Direct HDL Cholesterol Urine WBC (Auto) Vancomycin Trough Coronavirus (PCR) Crossmatch 07/18/19 07/18/19 07/18/19 04:49 05:22 05:22 WBC 15.9 H RBC 3.00 L Hgb 8.1 L Hct 26.0 L MCV MCH 27 L MCHC 31 L RDW 19.4 H Plt Count 733 H Lymph % (Auto) 6.3 L [place] % (Auto) 7.4 H Lymph # 1.0 L [place] # 1.2 H Baso # 0.2 H Seg Neutrophils % 83.8 H Seg Neuts % (Manual) Lymphocytes % (Manual) Monocytes % (Manual) Basophils % (Manual) Nucleated RBC % Seg Neutrophils # 13.3 H Seg Neutrophils # Man Lymphocytes # (Manual) Monocytes # (Manual) Eosinophils # (Manual) Basophils # (Manual) PT INR D-Dimer ABG pH ABG pO2 ABG HCO3 ABG O2 Saturation ABG Base Excess ABG Hemoglobin Oxyhemoglobin Sodium Potassium Chloride 110.6 H Carbon Dioxide BUN 61 H Creatinine Glucose 109 H POC Glucose 116 H Lactic Acid Calcium Magnesium Iron TIBC Ferritin AST ALT Lactate Dehydrogenase Troponin T C-Reactive Protein Total Protein Albumin Prealbumin Cholesterol LDL Cholesterol Direct HDL Cholesterol Urine WBC (Auto) Vancomycin Trough Coronavirus (PCR) Crossmatch 07/18/19 07/18/19 07/18/19 12:23 18:06 22:20 WBC RBC Hgb Hct MCV MCH MCHC RDW Plt Count Lymph % (Auto) [place] % (Auto) Lymph # [place] # Baso # Seg Neutrophils % Seg Neuts % (Manual) Lymphocytes % (Manual) Monocytes % (Manual) Basophils % (Manual) Nucleated RBC % Seg Neutrophils # Seg Neutrophils # Man Lymphocytes # (Manual) Monocytes # (Manual) Eosinophils # (Manual) Basophils # (Manual) PT INR D-Dimer ABG pH 7.338 L ABG pO2 135.1 H ABG HCO3 ABG O2 Saturation ABG Base Excess ABG Hemoglobin 9.2 L Oxyhemoglobin Sodium Potassium Chloride Carbon Dioxide BUN Creatinine Glucose POC Glucose 114 H 113 H Lactic Acid Calcium Magnesium Iron TIBC Ferritin AST ALT Lactate Dehydrogenase Troponin T C-Reactive Protein Total Protein Albumin Prealbumin Cholesterol LDL Cholesterol Direct HDL Cholesterol Urine WBC (Auto) Vancomycin Trough Coronavirus (PCR) Crossmatch 07/18/19 07/19/19 07/19/19 23:33 03:45 05:18 WBC RBC Hgb Hct MCV MCH MCHC RDW Plt Count Lymph % (Auto) [place] % (Auto) Lymph # [place] # Baso # Seg Neutrophils % Seg Neuts % (Manual) Lymphocytes % (Manual) Monocytes % (Manual) Basophils % (Manual) Nucleated RBC % Seg Neutrophils # Seg Neutrophils # Man Lymphocytes # (Manual) Monocytes # (Manual) Eosinophils # (Manual) Basophils # (Manual) PT INR D-Dimer ABG pH 7.342 L ABG pO2 95.0 H ABG HCO3 ABG O2 Saturation ABG Base Excess ABG Hemoglobin 8.5 L Oxyhemoglobin Sodium Potassium Chloride Carbon Dioxide BUN Creatinine Glucose POC Glucose 125 H 111 H Lactic Acid Calcium Magnesium Iron TIBC Ferritin AST ALT Lactate Dehydrogenase Troponin T C-Reactive Protein Total Protein Albumin Prealbumin Cholesterol LDL Cholesterol Direct HDL Cholesterol Urine WBC (Auto) Vancomycin Trough Coronavirus (PCR) Crossmatch 07/19/19 07/19/19 07/19/19 08:45 08:45 11:47 WBC 15.9 H RBC 3.31 L Hgb 9.1 L Hct 28.4 L MCV MCH 27 L MCHC RDW 19.1 H Plt Count 858 H Lymph % (Auto) 4.9 L [place] % (Auto) 8.1 H Lymph # 0.8 L [place] # 1.3 H Baso # Seg Neutrophils % 85.5 H Seg Neuts % (Manual) Lymphocytes % (Manual) Monocytes % (Manual) Basophils % (Manual) Nucleated RBC % Seg Neutrophils # 13.6 H Seg Neutrophils # Man Lymphocytes # (Manual) Monocytes # (Manual) Eosinophils # (Manual) Basophils # (Manual) PT INR D-Dimer ABG pH ABG pO2 ABG HCO3 ABG O2 Saturation ABG Base Excess ABG Hemoglobin Oxyhemoglobin Sodium Potassium Chloride 111.6 H Carbon Dioxide BUN 50 H Creatinine 0.7 L Glucose 118 H POC Glucose 114 H Lactic Acid Calcium Magnesium Iron TIBC Ferritin AST ALT Lactate Dehydrogenase Troponin T C-Reactive Protein Total Protein Albumin Prealbumin Cholesterol LDL Cholesterol Direct HDL Cholesterol Urine WBC (Auto) Vancomycin Trough Coronavirus (PCR) Crossmatch 07/19/19 07/19/19 07/20/19 18:25 23:44 04:39 WBC RBC Hgb Hct MCV MCH MCHC RDW Plt Count Lymph % (Auto) [place] % (Auto) Lymph # [place] # Baso # Seg Neutrophils % Seg Neuts % (Manual) Lymphocytes % (Manual) Monocytes % (Manual) Basophils % (Manual) Nucleated RBC % Seg Neutrophils # Seg Neutrophils # Man Lymphocytes # (Manual) Monocytes # (Manual) Eosinophils # (Manual) Basophils # (Manual) PT INR D-Dimer ABG pH ABG pO2 ABG HCO3 ABG O2 Saturation ABG Base Excess ABG Hemoglobin Oxyhemoglobin Sodium Potassium Chloride 110.3 H Carbon Dioxide BUN 44 H Creatinine 0.6 L Glucose 120 H POC Glucose 115 H 117 H Lactic Acid Calcium Magnesium Iron TIBC Ferritin AST ALT Lactate Dehydrogenase Troponin T C-Reactive Protein Total Protein Albumin Prealbumin Cholesterol LDL Cholesterol Direct HDL Cholesterol Urine WBC (Auto) Vancomycin Trough Coronavirus (PCR) Crossmatch 07/20/19 07/21/19 07/21/19 05:30 11:59 17:40 WBC RBC Hgb Hct MCV MCH MCHC RDW Plt Count Lymph % (Auto) [place] % (Auto) Lymph # [place] # Baso # Seg Neutrophils % Seg Neuts % (Manual) Lymphocytes % (Manual) Monocytes % (Manual) Basophils % (Manual) Nucleated RBC % Seg Neutrophils # Seg Neutrophils # Man Lymphocytes # (Manual) Monocytes # (Manual) Eosinophils # (Manual) Basophils # (Manual) PT INR D-Dimer ABG pH ABG pO2 ABG HCO3 ABG O2 Saturation ABG Base Excess ABG Hemoglobin Oxyhemoglobin Sodium Potassium Chloride Carbon Dioxide BUN Creatinine Glucose POC Glucose 131 H 122 H 125 H Lactic Acid Calcium Magnesium Iron TIBC Ferritin AST ALT Lactate Dehydrogenase Troponin T C-Reactive Protein Total Protein Albumin Prealbumin Cholesterol LDL Cholesterol Direct HDL Cholesterol Urine WBC (Auto) Vancomycin Trough Coronavirus (PCR) Crossmatch 07/22/19 07/22/19 07/22/19 05:38 05:38 12:29 WBC 12.6 H RBC 3.19 L Hgb 8.9 L Hct 27.5 L MCV MCH MCHC RDW 18.9 H Plt Count 1101 H* Lymph % (Auto) [place] % (Auto) 12.2 H Lymph # [place] # 1.5 H Baso # Seg Neutrophils % 72.8 H Seg Neuts % (Manual) 76.0 H Lymphocytes % (Manual) 7.0 L Monocytes % (Manual) 14.0 H Basophils % (Manual) Nucleated RBC % 1.0 H Seg Neutrophils # 9.2 H Seg Neutrophils # Man 9.6 H Lymphocytes # (Manual) 0.9 L Monocytes # (Manual) 1.8 H Eosinophils # (Manual) Basophils # (Manual) PT INR D-Dimer ABG pH ABG pO2 ABG HCO3 ABG O2 Saturation ABG Base Excess ABG Hemoglobin Oxyhemoglobin Sodium Potassium 3.4 L Chloride Carbon Dioxide BUN 29 H Creatinine 0.5 L Glucose POC Glucose 116 H Lactic Acid Calcium Magnesium Iron TIBC Ferritin AST ALT Lactate Dehydrogenase Troponin T C-Reactive Protein Total Protein Albumin Prealbumin Cholesterol LDL Cholesterol Direct HDL Cholesterol Urine WBC (Auto) Vancomycin Trough Coronavirus (PCR) Crossmatch 07/22/19 07/22/19 07/23/19 18:20 23:51 04:52 WBC RBC Hgb Hct MCV MCH MCHC RDW Plt Count Lymph % (Auto) [place] % (Auto) Lymph # [place] # Baso # Seg Neutrophils % Seg Neuts % (Manual) Lymphocytes % (Manual) Monocytes % (Manual) Basophils % (Manual) Nucleated RBC % Seg Neutrophils # Seg Neutrophils # Man Lymphocytes # (Manual) Monocytes # (Manual) Eosinophils # (Manual) Basophils # (Manual) PT INR D-Dimer ABG pH ABG pO2 ABG HCO3 ABG O2 Saturation ABG Base Excess ABG Hemoglobin Oxyhemoglobin Sodium Potassium Chloride Carbon Dioxide BUN 24 H Creatinine 0.4 L Glucose POC Glucose 107 H 110 H Lactic Acid Calcium Magnesium Iron TIBC Ferritin AST ALT Lactate Dehydrogenase Troponin T C-Reactive Protein Total Protein Albumin Prealbumin Cholesterol LDL Cholesterol Direct HDL Cholesterol Urine WBC (Auto) Vancomycin Trough Coronavirus (PCR) Crossmatch 07/23/19 07/23/19 07/24/19 06:00 23:15 04:40 WBC RBC Hgb Hct MCV MCH MCHC RDW Plt Count Lymph % (Auto) [place] % (Auto) Lymph # [place] # Baso # Seg Neutrophils % Seg Neuts % (Manual) Lymphocytes % (Manual) Monocytes % (Manual) Basophils % (Manual) Nucleated RBC % Seg Neutrophils # Seg Neutrophils # Man Lymphocytes # (Manual) Monocytes # (Manual) Eosinophils # (Manual) Basophils # (Manual) PT INR D-Dimer ABG pH ABG pO2 73.5 L ABG HCO3 27.0 H 28.5 H ABG O2 Saturation 94.5 L ABG Base Excess ABG Hemoglobin 9.4 L 8.9 L Oxyhemoglobin 94.0 L 92.7 L Sodium Potassium Chloride Carbon Dioxide BUN Creatinine Glucose POC Glucose 117 H Lactic Acid Calcium Magnesium Iron TIBC Ferritin AST ALT Lactate Dehydrogenase Troponin T C-Reactive Protein Total Protein Albumin Prealbumin Cholesterol LDL Cholesterol Direct HDL Cholesterol Urine WBC (Auto) Vancomycin Trough Coronavirus (PCR) Crossmatch 07/24/19 07/24/19 07/25/19 05:25 12:06 00:16 WBC RBC Hgb Hct MCV MCH MCHC RDW Plt Count Lymph % (Auto) [place] % (Auto) Lymph # [place] # Baso # Seg Neutrophils % Seg Neuts % (Manual) Lymphocytes % (Manual) Monocytes % (Manual) Basophils % (Manual) Nucleated RBC % Seg Neutrophils # Seg Neutrophils # Man Lymphocytes # (Manual) Monocytes # (Manual) Eosinophils # (Manual) Basophils # (Manual) PT INR D-Dimer ABG pH ABG pO2 ABG HCO3 ABG O2 Saturation ABG Base Excess ABG Hemoglobin Oxyhemoglobin Sodium Potassium Chloride Carbon Dioxide BUN Creatinine Glucose POC Glucose 114 H 108 H 106 H Lactic Acid Calcium Magnesium Iron TIBC Ferritin AST ALT Lactate Dehydrogenase Troponin T C-Reactive Protein Total Protein Albumin Prealbumin Cholesterol LDL Cholesterol Direct HDL Cholesterol Urine WBC (Auto) Vancomycin Trough Coronavirus (PCR) Crossmatch 07/25/19 07/25/19 07/25/19 05:14 05:14 05:17 WBC 17.8 H RBC 3.32 L Hgb 9.2 L Hct 28.6 L MCV MCH MCHC RDW 19.9 H Plt Count 994 H Lymph % (Auto) [place] % (Auto) Lymph # [place] # Baso # Seg Neutrophils % Seg Neuts % (Manual) 82.0 H Lymphocytes % (Manual) 5.0 L Monocytes % (Manual) Basophils % (Manual) Nucleated RBC % Seg Neutrophils # Seg Neutrophils # Man 14.6 H Lymphocytes # (Manual) 0.9 L Monocytes # (Manual) 1.2 H Eosinophils # (Manual) Basophils # (Manual) PT INR D-Dimer ABG pH ABG pO2 ABG HCO3 ABG O2 Saturation ABG Base Excess ABG Hemoglobin Oxyhemoglobin Sodium Potassium Chloride Carbon Dioxide BUN Creatinine 0.4 L Glucose 110 H POC Glucose 107 H Lactic Acid Calcium Magnesium Iron TIBC Ferritin AST ALT Lactate Dehydrogenase Troponin T C-Reactive Protein Total Protein Albumin Prealbumin Cholesterol LDL Cholesterol Direct HDL Cholesterol Urine WBC (Auto) Vancomycin Trough Coronavirus (PCR) Crossmatch 07/25/19 07/25/19 07/26/19 11:55 23:49 06:01 WBC RBC Hgb Hct MCV MCH MCHC RDW Plt Count Lymph % (Auto) [place] % (Auto) Lymph # [place] # Baso # Seg Neutrophils % Seg Neuts % (Manual) Lymphocytes % (Manual) Monocytes % (Manual) Basophils % (Manual) Nucleated RBC % Seg Neutrophils # Seg Neutrophils # Man Lymphocytes # (Manual) Monocytes # (Manual) Eosinophils # (Manual) Basophils # (Manual) PT INR D-Dimer ABG pH ABG pO2 ABG HCO3 ABG O2 Saturation ABG Base Excess ABG Hemoglobin Oxyhemoglobin Sodium Potassium Chloride Carbon Dioxide BUN Creatinine Glucose POC Glucose 123 H 118 H 106 H Lactic Acid Calcium Magnesium Iron TIBC Ferritin AST ALT Lactate Dehydrogenase Troponin T C-Reactive Protein Total Protein Albumin Prealbumin Cholesterol LDL Cholesterol Direct HDL Cholesterol Urine WBC (Auto) Vancomycin Trough Coronavirus (PCR) Crossmatch 07/26/19 07/27/19 07/27/19 17:02 00:28 05:16 WBC RBC Hgb Hct MCV MCH MCHC RDW Plt Count Lymph % (Auto) [place] % (Auto) Lymph # [place] # Baso # Seg Neutrophils % Seg Neuts % (Manual) Lymphocytes % (Manual) Monocytes % (Manual) Basophils % (Manual) Nucleated RBC % Seg Neutrophils # Seg Neutrophils # Man Lymphocytes # (Manual) Monocytes # (Manual) Eosinophils # (Manual) Basophils # (Manual) PT INR D-Dimer ABG pH ABG pO2 63.4 L ABG HCO3 31.3 H ABG O2 Saturation 92.7 L ABG Base Excess 6.3 H ABG Hemoglobin 7.6 L Oxyhemoglobin 90.9 L Sodium Potassium Chloride Carbon Dioxide BUN Creatinine Glucose POC Glucose 116 H 158 H Lactic Acid Calcium Magnesium Iron TIBC Ferritin AST ALT Lactate Dehydrogenase Troponin T C-Reactive Protein Total Protein Albumin Prealbumin Cholesterol LDL Cholesterol Direct HDL Cholesterol Urine WBC (Auto) Vancomycin Trough Coronavirus (PCR) Crossmatch 07/28/19 07/28/19 07/28/19 10:13 10:13 23:54 WBC 18.5 H RBC 3.20 L Hgb 8.8 L Hct 26.8 L MCV MCH 27 L MCHC RDW 19.9 H Plt Count 730 H Lymph % (Auto) [place] % (Auto) Lymph # [place] # Baso # Seg Neutrophils % Seg Neuts % (Manual) Lymphocytes % (Manual) Monocytes % (Manual) Basophils % (Manual) Nucleated RBC % Seg Neutrophils # Seg Neutrophils # Man Lymphocytes # (Manual) Monocytes # (Manual) Eosinophils # (Manual) Basophils # (Manual) PT INR D-Dimer ABG pH ABG pO2 ABG HCO3 ABG O2 Saturation ABG Base Excess ABG Hemoglobin Oxyhemoglobin Sodium Potassium 3.2 L Chloride 97.5 L Carbon Dioxide 31 H BUN Creatinine 0.5 L Glucose POC Glucose 120 H Lactic Acid Calcium Magnesium Iron TIBC Ferritin AST ALT Lactate Dehydrogenase Troponin T C-Reactive Protein Total Protein Albumin Prealbumin Cholesterol LDL Cholesterol Direct HDL Cholesterol Urine WBC (Auto) Vancomycin Trough Coronavirus (PCR) Crossmatch 07/29/19 07/29/19 07/29/19 11:57 17:43 Unknown WBC RBC Hgb Hct MCV MCH MCHC RDW Plt Count Lymph % (Auto) [place] % (Auto) Lymph # [place] # Baso # Seg Neutrophils % Seg Neuts % (Manual) Lymphocytes % (Manual) Monocytes % (Manual) Basophils % (Manual) Nucleated RBC % Seg Neutrophils # Seg Neutrophils # Man Lymphocytes # (Manual) Monocytes # (Manual) Eosinophils # (Manual) Basophils # (Manual) PT INR D-Dimer ABG pH ABG pO2 ABG HCO3 ABG O2 Saturation ABG Base Excess ABG Hemoglobin Oxyhemoglobin Sodium Potassium Chloride Carbon Dioxide BUN Creatinine Glucose POC Glucose 112 H Lactic Acid Calcium Magnesium Iron TIBC Ferritin AST ALT Lactate Dehydrogenase Troponin T C-Reactive Protein Total Protein Albumin Prealbumin Cholesterol LDL Cholesterol Direct HDL Cholesterol Urine WBC (Auto) 63.0 H Vancomycin Trough Coronavirus (PCR) Positive A Crossmatch 07/30/19 07/30/19 07/30/19 00:20 04:35 04:35 WBC 24.3 H RBC 3.12 L Hgb 8.5 L Hct 26.3 L MCV MCH 27 L MCHC RDW 20.2 H Plt Count 550 H Lymph % (Auto) [place] % (Auto) Lymph # [place] # Baso # Seg Neutrophils % Seg Neuts % (Manual) Lymphocytes % (Manual) Monocytes % (Manual) Basophils % (Manual) Nucleated RBC % Seg Neutrophils # Seg Neutrophils # Man Lymphocytes # (Manual) Monocytes # (Manual) Eosinophils # (Manual) Basophils # (Manual) PT INR D-Dimer ABG pH ABG pO2 ABG HCO3 ABG O2 Saturation ABG Base Excess ABG Hemoglobin Oxyhemoglobin Sodium Potassium 3.0 L Chloride 96.3 L Carbon Dioxide 32 H BUN Creatinine 0.5 L Glucose POC Glucose 106 H Lactic Acid Calcium Magnesium Iron TIBC Ferritin AST ALT Lactate Dehydrogenase Troponin T C-Reactive Protein Total Protein Albumin Prealbumin Cholesterol LDL Cholesterol Direct HDL Cholesterol Urine WBC (Auto) Vancomycin Trough Coronavirus (PCR) Crossmatch 07/31/19 07/31/19 07/31/19 04:42 04:42 11:33 WBC 23.8 H RBC 3.10 L Hgb 8.4 L Hct 26.1 L MCV MCH 27 L MCHC RDW 19.6 H Plt Count 561 H Lymph % (Auto) [place] % (Auto) Lymph # [place] # Baso # Seg Neutrophils % Seg Neuts % (Manual) Lymphocytes % (Manual) Monocytes % (Manual) Basophils % (Manual) Nucleated RBC % Seg Neutrophils # Seg Neutrophils # Man Lymphocytes # (Manual) Monocytes # (Manual) Eosinophils # (Manual) Basophils # (Manual) PT INR D-Dimer ABG pH ABG pO2 ABG HCO3 ABG O2 Saturation ABG Base Excess ABG Hemoglobin Oxyhemoglobin Sodium 135 L Potassium Chloride 93.9 L Carbon Dioxide 32 H BUN Creatinine 0.4 L Glucose POC Glucose 116 H Lactic Acid Calcium Magnesium Iron TIBC Ferritin AST ALT Lactate Dehydrogenase Troponin T C-Reactive Protein Total Protein Albumin 1.6 L Prealbumin 0.037 L Cholesterol LDL Cholesterol Direct HDL Cholesterol Urine WBC (Auto) Vancomycin Trough Coronavirus (PCR) Crossmatch 07/31/19 08/01/19 08/01/19 23:33 04:57 04:57 WBC 26.7 H RBC 3.12 L Hgb 8.5 L Hct 26.3 L MCV MCH 27 L MCHC RDW 19.2 H Plt Count 602 H Lymph % (Auto) [place] % (Auto) Lymph # [place] # Baso # Seg Neutrophils % Seg Neuts % (Manual) 93.0 H Lymphocytes % (Manual) 2.0 L Monocytes % (Manual) Basophils % (Manual) Nucleated RBC % Seg Neutrophils # Seg Neutrophils # Man 24.8 H Lymphocytes # (Manual) 0.5 L Monocytes # (Manual) 1.1 H Eosinophils # (Manual) Basophils # (Manual) PT INR D-Dimer ABG pH ABG pO2 ABG HCO3 ABG O2 Saturation ABG Base Excess ABG Hemoglobin Oxyhemoglobin Sodium 132 L Potassium Chloride 93.8 L Carbon Dioxide 31 H BUN Creatinine 0.3 L Glucose POC Glucose 148 H Lactic Acid Calcium 8.1 L Magnesium Iron TIBC Ferritin AST ALT Lactate Dehydrogenase Troponin T C-Reactive Protein Total Protein Albumin Prealbumin Cholesterol LDL Cholesterol Direct HDL Cholesterol Urine WBC (Auto) Vancomycin Trough Coronavirus (PCR) Crossmatch 08/01/19 08/02/19 08/02/19 12:16 00:22 05:24 WBC RBC Hgb Hct MCV MCH MCHC RDW Plt Count Lymph % (Auto) [place] % (Auto) Lymph # [place] # Baso # Seg Neutrophils % Seg Neuts % (Manual) Lymphocytes % (Manual) Monocytes % (Manual) Basophils % (Manual) Nucleated RBC % Seg Neutrophils # Seg Neutrophils # Man Lymphocytes # (Manual) Monocytes # (Manual) Eosinophils # (Manual) Basophils # (Manual) PT INR D-Dimer ABG pH ABG pO2 ABG HCO3 ABG O2 Saturation ABG Base Excess ABG Hemoglobin Oxyhemoglobin Sodium Potassium Chloride Carbon Dioxide BUN Creatinine Glucose POC Glucose 120 H 119 H 113 H Lactic Acid Calcium Magnesium Iron TIBC Ferritin AST ALT Lactate Dehydrogenase Troponin T C-Reactive Protein Total Protein Albumin Prealbumin Cholesterol LDL Cholesterol Direct HDL Cholesterol Urine WBC (Auto) Vancomycin Trough Coronavirus (PCR) Crossmatch 08/03/19 08/03/19 08/03/19 05:20 12:01 23:48 WBC RBC Hgb Hct MCV MCH MCHC RDW Plt Count Lymph % (Auto) [place] % (Auto) Lymph # [place] # Baso # Seg Neutrophils % Seg Neuts % (Manual) Lymphocytes % (Manual) Monocytes % (Manual) Basophils % (Manual) Nucleated RBC % Seg Neutrophils # Seg Neutrophils # Man Lymphocytes # (Manual) Monocytes # (Manual) Eosinophils # (Manual) Basophils # (Manual) PT INR D-Dimer ABG pH ABG pO2 ABG HCO3 ABG O2 Saturation ABG Base Excess ABG Hemoglobin Oxyhemoglobin Sodium Potassium Chloride Carbon Dioxide BUN Creatinine Glucose POC Glucose 118 H 106 H 120 H Lactic Acid Calcium Magnesium Iron TIBC Ferritin AST ALT Lactate Dehydrogenase Troponin T C-Reactive Protein Total Protein Albumin Prealbumin Cholesterol LDL Cholesterol Direct HDL Cholesterol Urine WBC (Auto) Vancomycin Trough Coronavirus (PCR) Crossmatch 08/04/19 08/04/19 08/04/19 05:38 05:38 06:29 WBC 26.1 H RBC 2.77 L Hgb 7.5 L Hct 23.2 L MCV MCH 27 L MCHC RDW 19.2 H Plt Count 648 H Lymph % (Auto) [place] % (Auto) Lymph # [place] # Baso # Seg Neutrophils % Seg Neuts % (Manual) 90.5 H Lymphocytes % (Manual) 3.5 L Monocytes % (Manual) Basophils % (Manual) Nucleated RBC % Seg Neutrophils # Seg Neutrophils # Man 23.6 H Lymphocytes # (Manual) 0.9 L Monocytes # (Manual) 1.2 H Eosinophils # (Manual) Basophils # (Manual) PT INR D-Dimer ABG pH ABG pO2 ABG HCO3 ABG O2 Saturation ABG Base Excess ABG Hemoglobin Oxyhemoglobin Sodium 132 L Potassium 3.4 L D Chloride 92.7 L Carbon Dioxide 33 H BUN Creatinine 0.2 L Glucose POC Glucose 108 H Lactic Acid Calcium 8.1 L Magnesium Iron TIBC Ferritin AST ALT Lactate Dehydrogenase Troponin T C-Reactive Protein Total Protein Albumin Prealbumin Cholesterol LDL Cholesterol Direct HDL Cholesterol Urine WBC (Auto) Vancomycin Trough Coronavirus (PCR) Crossmatch 08/04/19 08/05/19 08/05/19 12:30 04:58 04:58 WBC 21.0 H RBC 2.63 L Hgb 7.2 L Hct 21.9 L MCV 83 L MCH 27 L MCHC RDW 18.9 H Plt Count 691 H Lymph % (Auto) [place] % (Auto) Lymph # [place] # Baso # Seg Neutrophils % Seg Neuts % (Manual) 86.0 H Lymphocytes % (Manual) 3.0 L Monocytes % (Manual) 10.0 H Basophils % (Manual) Nucleated RBC % Seg Neutrophils # Seg Neutrophils # Man 18.1 H Lymphocytes # (Manual) 0.6 L Monocytes # (Manual) 2.1 H Eosinophils # (Manual) Basophils # (Manual) PT INR D-Dimer ABG pH ABG pO2 ABG HCO3 ABG O2 Saturation ABG Base Excess ABG Hemoglobin Oxyhemoglobin Sodium 134 L Potassium 3.2 L Chloride 93.2 L Carbon Dioxide 34 H BUN 8 L Creatinine 0.3 L Glucose POC Glucose 138 H Lactic Acid Calcium 8.1 L Magnesium Iron TIBC Ferritin AST ALT Lactate Dehydrogenase Troponin T C-Reactive Protein Total Protein Albumin Prealbumin Cholesterol LDL Cholesterol Direct HDL Cholesterol Urine WBC (Auto) Vancomycin Trough Coronavirus (PCR) Crossmatch 08/05/19 08/05/19 08/05/19 11:53 17:57 23:58 WBC RBC Hgb Hct MCV MCH MCHC RDW Plt Count Lymph % (Auto) [place] % (Auto) Lymph # [place] # Baso # Seg Neutrophils % Seg Neuts % (Manual) Lymphocytes % (Manual) Monocytes % (Manual) Basophils % (Manual) Nucleated RBC % Seg Neutrophils # Seg Neutrophils # Man Lymphocytes # (Manual) Monocytes # (Manual) Eosinophils # (Manual) Basophils # (Manual) PT INR D-Dimer ABG pH ABG pO2 ABG HCO3 ABG O2 Saturation ABG Base Excess ABG Hemoglobin Oxyhemoglobin Sodium Potassium Chloride Carbon Dioxide BUN Creatinine Glucose POC Glucose 106 H 111 H 116 H Lactic Acid Calcium Magnesium Iron TIBC Ferritin AST ALT Lactate Dehydrogenase Troponin T C-Reactive Protein Total Protein Albumin Prealbumin Cholesterol LDL Cholesterol Direct HDL Cholesterol Urine WBC (Auto) Vancomycin Trough Coronavirus (PCR) Crossmatch 08/06/19 08/06/19 08/06/19 04:11 04:11 06:04 WBC 20.8 H RBC 2.80 L Hgb 7.6 L Hct 23.5 L MCV MCH 27 L MCHC RDW 19.0 H Plt Count 723 H Lymph % (Auto) [place] % (Auto) Lymph # [place] # Baso # Seg Neutrophils % Seg Neuts % (Manual) 88.0 H Lymphocytes % (Manual) 3.0 L Monocytes % (Manual) Basophils % (Manual) Nucleated RBC % Seg Neutrophils # Seg Neutrophils # Man 18.3 H Lymphocytes # (Manual) 0.6 L Monocytes # (Manual) Eosinophils # (Manual) Basophils # (Manual) 0.2 H PT INR D-Dimer ABG pH ABG pO2 ABG HCO3 ABG O2 Saturation ABG Base Excess ABG Hemoglobin Oxyhemoglobin Sodium Potassium 3.4 L Chloride 95.2 L Carbon Dioxide 32 H BUN Creatinine 0.3 L Glucose POC Glucose 108 H Lactic Acid Calcium 8.2 L Magnesium Iron TIBC Ferritin AST ALT Lactate Dehydrogenase Troponin T C-Reactive Protein Total Protein Albumin Prealbumin Cholesterol LDL Cholesterol Direct HDL Cholesterol Urine WBC (Auto) Vancomycin Trough Coronavirus (PCR) Crossmatch 08/06/19 08/06/19 08/07/19 12:23 17:13 00:21 WBC RBC Hgb Hct MCV MCH MCHC RDW Plt Count Lymph % (Auto) [place] % (Auto) Lymph # [place] # Baso # Seg Neutrophils % Seg Neuts % (Manual) Lymphocytes % (Manual) Monocytes % (Manual) Basophils % (Manual) Nucleated RBC % Seg Neutrophils # Seg Neutrophils # Man Lymphocytes # (Manual) Monocytes # (Manual) Eosinophils # (Manual) Basophils # (Manual) PT INR D-Dimer ABG pH ABG pO2 ABG HCO3 ABG O2 Saturation ABG Base Excess ABG Hemoglobin Oxyhemoglobin Sodium Potassium Chloride Carbon Dioxide BUN Creatinine Glucose POC Glucose 112 H 132 H 147 H Lactic Acid Calcium Magnesium Iron TIBC Ferritin AST ALT Lactate Dehydrogenase Troponin T C-Reactive Protein Total Protein Albumin Prealbumin Cholesterol LDL Cholesterol Direct HDL Cholesterol Urine WBC (Auto) Vancomycin Trough Coronavirus (PCR) Crossmatch 08/07/19 08/07/19 08/07/19 05:16 05:23 05:23 WBC 30.3 H RBC 2.69 L Hgb 7.1 L Hct 22.2 L MCV 83 L MCH 27 L MCHC RDW 19.1 H Plt Count 650 H Lymph % (Auto) [place] % (Auto) Lymph # [place] # Baso # Seg Neutrophils % Seg Neuts % (Manual) 88.0 H Lymphocytes % (Manual) 5.0 L Monocytes % (Manual) Basophils % (Manual) Nucleated RBC % Seg Neutrophils # Seg Neutrophils # Man 26.7 H Lymphocytes # (Manual) Monocytes # (Manual) 2.1 H Eosinophils # (Manual) Basophils # (Manual) PT INR D-Dimer ABG pH ABG pO2 ABG HCO3 ABG O2 Saturation ABG Base Excess ABG Hemoglobin Oxyhemoglobin Sodium 135 L Potassium 3.4 L Chloride 95.4 L Carbon Dioxide 32 H BUN Creatinine 0.4 L Glucose 120 H POC Glucose 120 H Lactic Acid Calcium 7.7 L Magnesium Iron TIBC Ferritin AST ALT Lactate Dehydrogenase Troponin T C-Reactive Protein Total Protein Albumin Prealbumin Cholesterol LDL Cholesterol Direct HDL Cholesterol Urine WBC (Auto) Vancomycin Trough Coronavirus (PCR) Crossmatch 08/07/19 08/07/19 08/07/19 10:24 10:24 11:10 WBC RBC Hgb Hct MCV MCH MCHC RDW Plt Count Lymph % (Auto) [place] % (Auto) Lymph # [place] # Baso # Seg Neutrophils % Seg Neuts % (Manual) Lymphocytes % (Manual) Monocytes % (Manual) Basophils % (Manual) Nucleated RBC % Seg Neutrophils # Seg Neutrophils # Man Lymphocytes # (Manual) Monocytes # (Manual) Eosinophils # (Manual) Basophils # (Manual) PT INR D-Dimer 1808.06 H ABG pH ABG pO2 73.3 L ABG HCO3 33.9 H ABG O2 Saturation ABG Base Excess 9.0 H ABG Hemoglobin 6.3 L Oxyhemoglobin 94.3 L Sodium Potassium Chloride Carbon Dioxide BUN Creatinine Glucose POC Glucose Lactic Acid Calcium Magnesium Iron TIBC Ferritin AST ALT Lactate Dehydrogenase Troponin T C-Reactive Protein 11.10 H Total Protein Albumin Prealbumin Cholesterol LDL Cholesterol Direct HDL Cholesterol Urine WBC (Auto) Vancomycin Trough Coronavirus (PCR) Crossmatch 08/07/19 08/08/19 08/08/19 12:01 04:41 04:41 WBC 22.1 H RBC 2.82 L Hgb 7.7 L Hct 23.6 L MCV MCH 27 L MCHC RDW 19.1 H Plt Count 722 H Lymph % (Auto) [place] % (Auto) Lymph # [place] # Baso # Seg Neutrophils % Seg Neuts % (Manual) 90.0 H Lymphocytes % (Manual) 3.0 L Monocytes % (Manual) Basophils % (Manual) Nucleated RBC % Seg Neutrophils # Seg Neutrophils # Man 19.9 H Lymphocytes # (Manual) 0.7 L Monocytes # (Manual) 1.3 H Eosinophils # (Manual) Basophils # (Manual) PT INR D-Dimer ABG pH ABG pO2 ABG HCO3 ABG O2 Saturation ABG Base Excess ABG Hemoglobin Oxyhemoglobin Sodium 136 L Potassium Chloride 97.8 L Carbon Dioxide BUN Creatinine 0.3 L Glucose 105 H POC Glucose 130 H Lactic Acid Calcium 7.8 L Magnesium Iron TIBC Ferritin AST ALT Lactate Dehydrogenase Troponin T C-Reactive Protein Total Protein Albumin Prealbumin Cholesterol LDL Cholesterol Direct HDL Cholesterol Urine WBC (Auto) Vancomycin Trough Coronavirus (PCR) Crossmatch 08/08/19 08/08/19 08/09/19 11:46 18:35 00:12 WBC RBC Hgb Hct MCV MCH MCHC RDW Plt Count Lymph % (Auto) [place] % (Auto) Lymph # [place] # Baso # Seg Neutrophils % Seg Neuts % (Manual) Lymphocytes % (Manual) Monocytes % (Manual) Basophils % (Manual) Nucleated RBC % Seg Neutrophils # Seg Neutrophils # Man Lymphocytes # (Manual) Monocytes # (Manual) Eosinophils # (Manual) Basophils # (Manual) PT INR D-Dimer ABG pH ABG pO2 ABG HCO3 ABG O2 Saturation ABG Base Excess ABG Hemoglobin Oxyhemoglobin Sodium Potassium Chloride Carbon Dioxide BUN Creatinine Glucose POC Glucose 117 H 117 H 117 H Lactic Acid Calcium Magnesium Iron TIBC Ferritin AST ALT Lactate Dehydrogenase Troponin T C-Reactive Protein Total Protein Albumin Prealbumin Cholesterol LDL Cholesterol Direct HDL Cholesterol Urine WBC (Auto) Vancomycin Trough Coronavirus (PCR) Crossmatch 08/09/19 08/09/19 08/09/19 05:33 12:22 17:48 WBC RBC Hgb Hct MCV MCH MCHC RDW Plt Count Lymph % (Auto) [place] % (Auto) Lymph # [place] # Baso # Seg Neutrophils % Seg Neuts % (Manual) Lymphocytes % (Manual) Monocytes % (Manual) Basophils % (Manual) Nucleated RBC % Seg Neutrophils # Seg Neutrophils # Man Lymphocytes # (Manual) Monocytes # (Manual) Eosinophils # (Manual) Basophils # (Manual) PT INR D-Dimer ABG pH ABG pO2 ABG HCO3 ABG O2 Saturation ABG Base Excess ABG Hemoglobin Oxyhemoglobin Sodium Potassium Chloride Carbon Dioxide BUN Creatinine Glucose POC Glucose 119 H 133 H 123 H Lactic Acid Calcium Magnesium Iron TIBC Ferritin AST ALT Lactate Dehydrogenase Troponin T C-Reactive Protein Total Protein Albumin Prealbumin Cholesterol LDL Cholesterol Direct HDL Cholesterol Urine WBC (Auto) Vancomycin Trough Coronavirus (PCR) Crossmatch 08/09/19 08/09/19 08/10/19 17:59 18:15 00:02 WBC RBC Hgb 6.7 L Hct 20.4 L MCV MCH MCHC RDW Plt Count Lymph % (Auto) [place] % (Auto) Lymph # [place] # Baso # Seg Neutrophils % Seg Neuts % (Manual) Lymphocytes % (Manual) Monocytes % (Manual) Basophils % (Manual) Nucleated RBC % Seg Neutrophils # Seg Neutrophils # Man Lymphocytes # (Manual) Monocytes # (Manual) Eosinophils # (Manual) Basophils # (Manual) PT INR D-Dimer ABG pH ABG pO2 ABG HCO3 ABG O2 Saturation ABG Base Excess ABG Hemoglobin Oxyhemoglobin Sodium Potassium Chloride Carbon Dioxide BUN Creatinine Glucose POC Glucose 124 H Lactic Acid Calcium Magnesium Iron TIBC Ferritin AST ALT Lactate Dehydrogenase Troponin T C-Reactive Protein Total Protein Albumin Prealbumin Cholesterol LDL Cholesterol Direct HDL Cholesterol Urine WBC (Auto) Vancomycin Trough Coronavirus (PCR) Crossmatch See Detail 08/10/19 08/10/19 08/10/19 05:47 08:00 08:00 WBC 16.9 H RBC 2.94 L Hgb 8.2 L Hct 24.9 L MCV MCH MCHC RDW 17.0 H Plt Count 661 H Lymph % (Auto) [place] % (Auto) Lymph # [place] # Baso # Seg Neutrophils % Seg Neuts % (Manual) Lymphocytes % (Manual) Monocytes % (Manual) Basophils % (Manual) Nucleated RBC % Seg Neutrophils # Seg Neutrophils # Man Lymphocytes # (Manual) Monocytes # (Manual) Eosinophils # (Manual) Basophils # (Manual) PT INR D-Dimer ABG pH ABG pO2 ABG HCO3 ABG O2 Saturation ABG Base Excess ABG Hemoglobin Oxyhemoglobin Sodium Potassium Chloride Carbon Dioxide BUN Creatinine 0.3 L Glucose 116 H POC Glucose 148 H Lactic Acid Calcium 7.7 L Magnesium Iron TIBC Ferritin AST ALT Lactate Dehydrogenase Troponin T C-Reactive Protein Total Protein Albumin Prealbumin Cholesterol LDL Cholesterol Direct HDL Cholesterol Urine WBC (Auto) Vancomycin Trough Coronavirus (PCR) Crossmatch 08/10/19 08/10/19 08/10/19 12:38 18:06 23:56 WBC RBC Hgb Hct MCV MCH MCHC RDW Plt Count Lymph % (Auto) [place] % (Auto) Lymph # [place] # Baso # Seg Neutrophils % Seg Neuts % (Manual) Lymphocytes % (Manual) Monocytes % (Manual) Basophils % (Manual) Nucleated RBC % Seg Neutrophils # Seg Neutrophils # Man Lymphocytes # (Manual) Monocytes # (Manual) Eosinophils # (Manual) Basophils # (Manual) PT INR D-Dimer ABG pH ABG pO2 ABG HCO3 ABG O2 Saturation ABG Base Excess ABG Hemoglobin Oxyhemoglobin Sodium Potassium Chloride Carbon Dioxide BUN Creatinine Glucose POC Glucose 113 H 126 H 115 H Lactic Acid Calcium Magnesium Iron TIBC Ferritin AST ALT Lactate Dehydrogenase Troponin T C-Reactive Protein Total Protein Albumin Prealbumin Cholesterol LDL Cholesterol Direct HDL Cholesterol Urine WBC (Auto) Vancomycin Trough Coronavirus (PCR) Crossmatch 08/10/19 08/11/19 08/12/19 Unknown 18:10 03:30 WBC 14.4 H RBC 2.58 L Hgb 7.4 L Hct 22.1 L MCV MCH MCHC RDW 17.4 H Plt Count 786 H Lymph % (Auto) [place] % (Auto) Lymph # [place] # Baso # Seg Neutrophils % Seg Neuts % (Manual) Lymphocytes % (Manual) Monocytes % (Manual) Basophils % (Manual) Nucleated RBC % Seg Neutrophils # Seg Neutrophils # Man Lymphocytes # (Manual) Monocytes # (Manual) Eosinophils # (Manual) Basophils # (Manual) PT INR D-Dimer ABG pH ABG pO2 ABG HCO3 ABG O2 Saturation ABG Base Excess ABG Hemoglobin Oxyhemoglobin Sodium Potassium Chloride Carbon Dioxide BUN Creatinine Glucose POC Glucose 106 H Lactic Acid Calcium Magnesium Iron TIBC Ferritin AST ALT Lactate Dehydrogenase Troponin T C-Reactive Protein Total Protein Albumin Prealbumin Cholesterol LDL Cholesterol Direct HDL Cholesterol Urine WBC (Auto) Vancomycin Trough Coronavirus (PCR) Positive A Crossmatch 0508/12/19 08/13/19 03:30 12:08 05:25 WBC RBC Hgb Hct MCV MCH MCHC RDW Plt Count Lymph % (Auto) [place] % (Auto) Lymph # [place] # Baso # Seg Neutrophils % Seg Neuts % (Manual) Lymphocytes % (Manual) Monocytes % (Manual) Basophils % (Manual) Nucleated RBC % Seg Neutrophils # Seg Neutrophils # Man Lymphocytes # (Manual) Monocytes # (Manual) Eosinophils # (Manual) Basophils # (Manual) PT INR D-Dimer ABG pH ABG pO2 ABG HCO3 ABG O2 Saturation ABG Base Excess ABG Hemoglobin Oxyhemoglobin Sodium Potassium Chloride Carbon Dioxide BUN 7 L Creatinine 0.3 L Glucose 117 H POC Glucose 112 H 126 H Lactic Acid Calcium 7.8 L Magnesium Iron TIBC Ferritin AST ALT Lactate Dehydrogenase Troponin T C-Reactive Protein Total Protein Albumin Prealbumin Cholesterol LDL Cholesterol Direct HDL Cholesterol Urine WBC (Auto) Vancomycin Trough Coronavirus (PCR) Crossmatch 08/13/19 08/13/19 08/13/19 11:36 17:10 19:06 WBC RBC Hgb Hct MCV MCH MCHC RDW Plt Count Lymph % (Auto) [place] % (Auto) Lymph # [place] # Baso # Seg Neutrophils % Seg Neuts % (Manual) Lymphocytes % (Manual) Monocytes % (Manual) Basophils % (Manual) Nucleated RBC % Seg Neutrophils # Seg Neutrophils # Man Lymphocytes # (Manual) Monocytes # (Manual) Eosinophils # (Manual) Basophils # (Manual) PT INR D-Dimer ABG pH ABG pO2 105.0 H ABG HCO3 28.5 H ABG O2 Saturation ABG Base Excess 3.5 H ABG Hemoglobin 7.8 L Oxyhemoglobin Sodium Potassium Chloride Carbon Dioxide BUN Creatinine Glucose POC Glucose 143 H 107 H Lactic Acid Calcium Magnesium Iron TIBC Ferritin AST ALT Lactate Dehydrogenase Troponin T C-Reactive Protein Total Protein Albumin Prealbumin Cholesterol LDL Cholesterol Direct HDL Cholesterol Urine WBC (Auto) Vancomycin Trough Coronavirus (PCR) Crossmatch 08/13/19 08/14/19 08/14/19 23:23 05:00 05:00 WBC 14.3 H RBC 2.76 L Hgb 7.8 L Hct 23.9 L MCV MCH MCHC RDW 18.7 H Plt Count 896 H Lymph % (Auto) [place] % (Auto) Lymph # [place] # Baso # Seg Neutrophils % Seg Neuts % (Manual) Lymphocytes % (Manual) Monocytes % (Manual) Basophils % (Manual) Nucleated RBC % Seg Neutrophils # Seg Neutrophils # Man Lymphocytes # (Manual) Monocytes # (Manual) Eosinophils # (Manual) Basophils # (Manual) PT INR D-Dimer ABG pH ABG pO2 ABG HCO3 ABG O2 Saturation ABG Base Excess ABG Hemoglobin Oxyhemoglobin Sodium Potassium Chloride Carbon Dioxide BUN 6 L Creatinine 0.3 L Glucose POC Glucose 125 H Lactic Acid Calcium 8.2 L Magnesium Iron TIBC Ferritin AST ALT Lactate Dehydrogenase Troponin T C-Reactive Protein Total Protein Albumin Prealbumin Cholesterol LDL Cholesterol Direct HDL Cholesterol Urine WBC (Auto) Vancomycin Trough Coronavirus (PCR) Crossmatch 08/14/19 08/15/19 08/15/19 05:07 00:25 05:42 WBC RBC Hgb Hct MCV MCH MCHC RDW Plt Count Lymph % (Auto) [place] % (Auto) Lymph # [place] # Baso # Seg Neutrophils % Seg Neuts % (Manual) Lymphocytes % (Manual) Monocytes % (Manual) Basophils % (Manual) Nucleated RBC % Seg Neutrophils # Seg Neutrophils # Man Lymphocytes # (Manual) Monocytes # (Manual) Eosinophils # (Manual) Basophils # (Manual) PT INR D-Dimer ABG pH ABG pO2 ABG HCO3 ABG O2 Saturation ABG Base Excess ABG Hemoglobin Oxyhemoglobin Sodium Potassium Chloride Carbon Dioxide BUN Creatinine Glucose POC Glucose 128 H 117 H 115 H Lactic Acid Calcium Magnesium Iron TIBC Ferritin AST ALT Lactate Dehydrogenase Troponin T C-Reactive Protein Total Protein Albumin Prealbumin Cholesterol LDL Cholesterol Direct HDL Cholesterol Urine WBC (Auto) Vancomycin Trough Coronavirus (PCR) Crossmatch 08/15/19 08/15/19 08/15/19 06:10 06:10 06:10 WBC 11.6 H RBC 2.68 L Hgb 7.7 L Hct 23.3 L MCV MCH MCHC RDW 19.2 H Plt Count 885 H Lymph % (Auto) [place] % (Auto) Lymph # [place] # Baso # Seg Neutrophils % Seg Neuts % (Manual) Lymphocytes % (Manual) Monocytes % (Manual) Basophils % (Manual) Nucleated RBC % Seg Neutrophils # Seg Neutrophils # Man Lymphocytes # (Manual) Monocytes # (Manual) Eosinophils # (Manual) Basophils # (Manual) PT INR D-Dimer ABG pH ABG pO2 ABG HCO3 ABG O2 Saturation ABG Base Excess ABG Hemoglobin Oxyhemoglobin Sodium Potassium Chloride Carbon Dioxide BUN 6 L Creatinine 0.3 L Glucose 107 H POC Glucose Lactic Acid Calcium 8.2 L Magnesium 1.50 L Iron TIBC Ferritin AST ALT Lactate Dehydrogenase Troponin T C-Reactive Protein Total Protein Albumin Prealbumin Cholesterol LDL Cholesterol Direct HDL Cholesterol Urine WBC (Auto) Vancomycin Trough Coronavirus (PCR) Crossmatch 08/15/19 08/16/19 08/16/19 12:12 00:05 05:00 WBC 13.3 H RBC 2.87 L Hgb 8.1 L Hct 24.9 L MCV MCH MCHC RDW 18.7 H Plt Count 962 H Lymph % (Auto) [place] % (Auto) Lymph # [place] # Baso # Seg Neutrophils % Seg Neuts % (Manual) Lymphocytes % (Manual) Monocytes % (Manual) Basophils % (Manual) Nucleated RBC % Seg Neutrophils # Seg Neutrophils # Man Lymphocytes # (Manual) Monocytes # (Manual) Eosinophils # (Manual) Basophils # (Manual) PT INR D-Dimer ABG pH ABG pO2 ABG HCO3 ABG O2 Saturation ABG Base Excess ABG Hemoglobin Oxyhemoglobin Sodium Potassium Chloride Carbon Dioxide BUN Creatinine Glucose POC Glucose 112 H 111 H Lactic Acid Calcium Magnesium Iron TIBC Ferritin AST ALT Lactate Dehydrogenase Troponin T C-Reactive Protein Total Protein Albumin Prealbumin Cholesterol LDL Cholesterol Direct HDL Cholesterol Urine WBC (Auto) Vancomycin Trough Coronavirus (PCR) Crossmatch 08/16/19 08/16/19 08/16/19 05:00 05:00 23:35 WBC RBC Hgb Hct MCV MCH MCHC RDW Plt Count Lymph % (Auto) [place] % (Auto) Lymph # [place] # Baso # Seg Neutrophils % Seg Neuts % (Manual) Lymphocytes % (Manual) Monocytes % (Manual) Basophils % (Manual) Nucleated RBC % Seg Neutrophils # Seg Neutrophils # Man Lymphocytes # (Manual) Monocytes # (Manual) Eosinophils # (Manual) Basophils # (Manual) PT INR D-Dimer ABG pH ABG pO2 ABG HCO3 ABG O2 Saturation ABG Base Excess ABG Hemoglobin Oxyhemoglobin Sodium 135 L Potassium Chloride Carbon Dioxide BUN 6 L Creatinine 0.3 L Glucose POC Glucose 108 H Lactic Acid Calcium 8.2 L Magnesium Iron TIBC Ferritin AST ALT Lactate Dehydrogenase Troponin T C-Reactive Protein 2.70 H Total Protein Albumin 2.1 L Prealbumin Cholesterol LDL Cholesterol Direct HDL Cholesterol Urine WBC (Auto) Vancomycin Trough Coronavirus (PCR) Crossmatch 08/17/19 08/17/19 08/17/19 05:15 20:20 23:42 WBC RBC Hgb Hct MCV MCH MCHC RDW Plt Count Lymph % (Auto) [place] % (Auto) Lymph # [place] # Baso # Seg Neutrophils % Seg Neuts % (Manual) Lymphocytes % (Manual) Monocytes % (Manual) Basophils % (Manual) Nucleated RBC % Seg Neutrophils # Seg Neutrophils # Man Lymphocytes # (Manual) Monocytes # (Manual) Eosinophils # (Manual) Basophils # (Manual) PT INR D-Dimer ABG pH ABG pO2 ABG HCO3 27.8 H ABG O2 Saturation ABG Base Excess ABG Hemoglobin 11.4 L Oxyhemoglobin 94.6 L Sodium Potassium Chloride Carbon Dioxide BUN Creatinine Glucose POC Glucose 138 H 132 H Lactic Acid Calcium Magnesium Iron TIBC Ferritin AST ALT Lactate Dehydrogenase Troponin T C-Reactive Protein Total Protein Albumin Prealbumin Cholesterol LDL Cholesterol Direct HDL Cholesterol Urine WBC (Auto) Vancomycin Trough Coronavirus (PCR) Crossmatch 08/18/19 08/18/19 08/18/19 06:00 06:00 12:02 WBC 19.7 H RBC 3.30 L Hgb 9.3 L Hct 28.5 L MCV MCH MCHC RDW 18.9 H Plt Count 923 H Lymph % (Auto) [place] % (Auto) Lymph # [place] # Baso # Seg Neutrophils % Seg Neuts % (Manual) Lymphocytes % (Manual) Monocytes % (Manual) Basophils % (Manual) Nucleated RBC % Seg Neutrophils # Seg Neutrophils # Man Lymphocytes # (Manual) Monocytes # (Manual) Eosinophils # (Manual) Basophils # (Manual) PT INR D-Dimer ABG pH ABG pO2 ABG HCO3 ABG O2 Saturation ABG Base Excess ABG Hemoglobin Oxyhemoglobin Sodium 136 L Potassium Chloride Carbon Dioxide BUN Creatinine 0.4 L Glucose 71 L POC Glucose 123 H Lactic Acid Calcium Magnesium Iron TIBC Ferritin AST ALT Lactate Dehydrogenase Troponin T C-Reactive Protein Total Protein Albumin Prealbumin Cholesterol LDL Cholesterol Direct HDL Cholesterol Urine WBC (Auto) Vancomycin Trough Coronavirus (PCR) Crossmatch 08/18/19 08/18/19 08/19/19 18:23 23:16 04:57 WBC RBC Hgb Hct MCV MCH MCHC RDW Plt Count Lymph % (Auto) [place] % (Auto) Lymph # [place] # Baso # Seg Neutrophils % Seg Neuts % (Manual) Lymphocytes % (Manual) Monocytes % (Manual) Basophils % (Manual) Nucleated RBC % Seg Neutrophils # Seg Neutrophils # Man Lymphocytes # (Manual) Monocytes # (Manual) Eosinophils # (Manual) Basophils # (Manual) PT INR D-Dimer ABG pH ABG pO2 ABG HCO3 ABG O2 Saturation ABG Base Excess ABG Hemoglobin Oxyhemoglobin Sodium Potassium Chloride Carbon Dioxide BUN Creatinine Glucose POC Glucose 140 H 159 H 134 H Lactic Acid Calcium Magnesium Iron TIBC Ferritin AST ALT Lactate Dehydrogenase Troponin T C-Reactive Protein Total Protein Albumin Prealbumin Cholesterol LDL Cholesterol Direct HDL Cholesterol Urine WBC (Auto) Vancomycin Trough Coronavirus (PCR) Crossmatch 08/19/19 08/19/19 08/19/19 07:44 08:17 18:15 WBC 30.5 H RBC 2.87 L Hgb 7.9 L Hct 24.5 L MCV MCH MCHC RDW 18.8 H Plt Count 772 H Lymph % (Auto) [place] % (Auto) Lymph # [place] # Baso # Seg Neutrophils % Seg Neuts % (Manual) 89.0 H Lymphocytes % (Manual) 4.0 L Monocytes % (Manual) Basophils % (Manual) 2.0 H Nucleated RBC % Seg Neutrophils # Seg Neutrophils # Man 27.1 H Lymphocytes # (Manual) Monocytes # (Manual) 0.9 H Eosinophils # (Manual) 0.6 H Basophils # (Manual) 0.6 H PT INR D-Dimer ABG pH ABG pO2 ABG HCO3 ABG O2 Saturation ABG Base Excess ABG Hemoglobin Oxyhemoglobin Sodium 136 L Potassium Chloride Carbon Dioxide BUN Creatinine 0.3 L Glucose POC Glucose 106 H Lactic Acid Calcium 8.2 L Magnesium Iron TIBC Ferritin AST ALT Lactate Dehydrogenase Troponin T C-Reactive Protein Total Protein Albumin Prealbumin Cholesterol LDL Cholesterol Direct HDL Cholesterol Urine WBC (Auto) Vancomycin Trough Coronavirus (PCR) Crossmatch 08/19/19 08/20/19 08/20/19 23:46 06:20 18:34 WBC RBC Hgb Hct MCV MCH MCHC RDW Plt Count Lymph % (Auto) [place] % (Auto) Lymph # [place] # Baso # Seg Neutrophils % Seg Neuts % (Manual) Lymphocytes % (Manual) Monocytes % (Manual) Basophils % (Manual) Nucleated RBC % Seg Neutrophils # Seg Neutrophils # Man Lymphocytes # (Manual) Monocytes # (Manual) Eosinophils # (Manual) Basophils # (Manual) PT INR D-Dimer ABG pH ABG pO2 ABG HCO3 ABG O2 Saturation ABG Base Excess ABG Hemoglobin Oxyhemoglobin Sodium Potassium Chloride Carbon Dioxide BUN Creatinine Glucose POC Glucose 144 H 115 H 125 H Lactic Acid Calcium Magnesium Iron TIBC Ferritin AST ALT Lactate Dehydrogenase Troponin T C-Reactive Protein Total Protein Albumin Prealbumin Cholesterol LDL Cholesterol Direct HDL Cholesterol Urine WBC (Auto) Vancomycin Trough Coronavirus (PCR) Crossmatch 08/20/19 08/20/19 08/21/19 Unknown Unknown 11:56 WBC 18.7 H RBC 2.70 L Hgb 7.6 L Hct 23.1 L MCV MCH MCHC RDW 18.9 H Plt Count 690 H Lymph % (Auto) [place] % (Auto) Lymph # [place] # Baso # Seg Neutrophils % Seg Neuts % (Manual) Lymphocytes % (Manual) Monocytes % (Manual) Basophils % (Manual) Nucleated RBC % Seg Neutrophils # Seg Neutrophils # Man Lymphocytes # (Manual) Monocytes # (Manual) Eosinophils # (Manual) Basophils # (Manual) PT INR D-Dimer ABG pH ABG pO2 ABG HCO3 ABG O2 Saturation ABG Base Excess ABG Hemoglobin Oxyhemoglobin Sodium 134 L Potassium Chloride 97.9 L Carbon Dioxide BUN Creatinine 0.3 L Glucose 115 H POC Glucose 116 H Lactic Acid Calcium 8.2 L Magnesium Iron TIBC Ferritin AST ALT Lactate Dehydrogenase Troponin T C-Reactive Protein Total Protein Albumin Prealbumin Cholesterol LDL Cholesterol Direct HDL Cholesterol Urine WBC (Auto) Vancomycin Trough Coronavirus (PCR) Crossmatch 08/21/19 08/22/19 08/22/19 18:14 00:31 05:53 WBC RBC Hgb Hct MCV MCH MCHC RDW Plt Count Lymph % (Auto) [place] % (Auto) Lymph # [place] # Baso # Seg Neutrophils % Seg Neuts % (Manual) Lymphocytes % (Manual) Monocytes % (Manual) Basophils % (Manual) Nucleated RBC % Seg Neutrophils # Seg Neutrophils # Man Lymphocytes # (Manual) Monocytes # (Manual) Eosinophils # (Manual) Basophils # (Manual) PT INR D-Dimer ABG pH ABG pO2 ABG HCO3 ABG O2 Saturation ABG Base Excess ABG Hemoglobin Oxyhemoglobin Sodium Potassium Chloride Carbon Dioxide BUN Creatinine Glucose POC Glucose 113 H 106 H 109 H Lactic Acid Calcium Magnesium Iron TIBC Ferritin AST ALT Lactate Dehydrogenase Troponin T C-Reactive Protein Total Protein Albumin Prealbumin Cholesterol LDL Cholesterol Direct HDL Cholesterol Urine WBC (Auto) Vancomycin Trough Coronavirus (PCR) Crossmatch 08/22/19 08/23/19 08/23/19 18:35 00:18 06:00 WBC 12.3 H RBC 2.92 L Hgb 8.0 L Hct 24.6 L MCV MCH MCHC RDW 18.5 H Plt Count 661 H Lymph % (Auto) 11.7 L [place] % (Auto) 9.2 H Lymph # [place] # 1.1 H Baso # Seg Neutrophils % 75.6 H Seg Neuts % (Manual) Lymphocytes % (Manual) Monocytes % (Manual) Basophils % (Manual) Nucleated RBC % Seg Neutrophils # 9.3 H Seg Neutrophils # Man Lymphocytes # (Manual) Monocytes # (Manual) Eosinophils # (Manual) Basophils # (Manual) PT INR D-Dimer ABG pH ABG pO2 ABG HCO3 ABG O2 Saturation ABG Base Excess ABG Hemoglobin Oxyhemoglobin Sodium Potassium Chloride Carbon Dioxide BUN Creatinine Glucose POC Glucose 130 H 124 H Lactic Acid Calcium Magnesium Iron TIBC Ferritin AST ALT Lactate Dehydrogenase Troponin T C-Reactive Protein Total Protein Albumin Prealbumin Cholesterol LDL Cholesterol Direct HDL Cholesterol Urine WBC (Auto) Vancomycin Trough Coronavirus (PCR) Crossmatch 08/23/19 08/23/19 08/24/19 06:09 17:46 00:04 WBC RBC Hgb Hct MCV MCH MCHC RDW Plt Count Lymph % (Auto) [place] % (Auto) Lymph # [place] # Baso # Seg Neutrophils % Seg Neuts % (Manual) Lymphocytes % (Manual) Monocytes % (Manual) Basophils % (Manual) Nucleated RBC % Seg Neutrophils # Seg Neutrophils # Man Lymphocytes # (Manual) Monocytes # (Manual) Eosinophils # (Manual) Basophils # (Manual) PT INR D-Dimer ABG pH ABG pO2 ABG HCO3 ABG O2 Saturation ABG Base Excess ABG Hemoglobin Oxyhemoglobin Sodium Potassium Chloride Carbon Dioxide BUN Creatinine Glucose POC Glucose 117 H 125 H 113 H Lactic Acid Calcium Magnesium Iron TIBC Ferritin AST ALT Lactate Dehydrogenase Troponin T C-Reactive Protein Total Protein Albumin Prealbumin Cholesterol LDL Cholesterol Direct HDL Cholesterol Urine WBC (Auto) Vancomycin Trough Coronavirus (PCR) Crossmatch 08/24/19 08/24/19 08/24/19 05:34 12:28 17:32 WBC RBC Hgb Hct MCV MCH MCHC RDW Plt Count Lymph % (Auto) [place] % (Auto) Lymph # [place] # Baso # Seg Neutrophils % Seg Neuts % (Manual) Lymphocytes % (Manual) Monocytes % (Manual) Basophils % (Manual) Nucleated RBC % Seg Neutrophils # Seg Neutrophils # Man Lymphocytes # (Manual) Monocytes # (Manual) Eosinophils # (Manual) Basophils # (Manual) PT INR D-Dimer ABG pH ABG pO2 ABG HCO3 ABG O2 Saturation ABG Base Excess ABG Hemoglobin Oxyhemoglobin Sodium Potassium Chloride Carbon Dioxide BUN Creatinine Glucose POC Glucose 128 H 127 H 116 H Lactic Acid Calcium Magnesium Iron TIBC Ferritin AST ALT Lactate Dehydrogenase Troponin T C-Reactive Protein Total Protein Albumin Prealbumin Cholesterol LDL Cholesterol Direct HDL Cholesterol Urine WBC (Auto) Vancomycin Trough Coronavirus (PCR) Crossmatch 08/24/19 08/25/19 08/25/19 23:41 05:37 12:30 WBC RBC Hgb Hct MCV MCH MCHC RDW Plt Count Lymph % (Auto) [place] % (Auto) Lymph # [place] # Baso # Seg Neutrophils % Seg Neuts % (Manual) Lymphocytes % (Manual) Monocytes % (Manual) Basophils % (Manual) Nucleated RBC % Seg Neutrophils # Seg Neutrophils # Man Lymphocytes # (Manual) Monocytes # (Manual) Eosinophils # (Manual) Basophils # (Manual) PT INR D-Dimer ABG pH ABG pO2 ABG HCO3 ABG O2 Saturation ABG Base Excess ABG Hemoglobin Oxyhemoglobin Sodium Potassium Chloride Carbon Dioxide BUN Creatinine Glucose POC Glucose 107 H 129 H 110 H Lactic Acid Calcium Magnesium Iron TIBC Ferritin AST ALT Lactate Dehydrogenase Troponin T C-Reactive Protein Total Protein Albumin Prealbumin Cholesterol LDL Cholesterol Direct HDL Cholesterol Urine WBC (Auto) Vancomycin Trough Coronavirus (PCR) Crossmatch 08/25/19 08/25/19 08/26/19 17:49 23:55 05:35 WBC RBC Hgb Hct MCV MCH MCHC RDW Plt Count Lymph % (Auto) [place] % (Auto) Lymph # [place] # Baso # Seg Neutrophils % Seg Neuts % (Manual) Lymphocytes % (Manual) Monocytes % (Manual) Basophils % (Manual) Nucleated RBC % Seg Neutrophils # Seg Neutrophils # Man Lymphocytes # (Manual) Monocytes # (Manual) Eosinophils # (Manual) Basophils # (Manual) PT INR D-Dimer ABG pH ABG pO2 ABG HCO3 ABG O2 Saturation ABG Base Excess ABG Hemoglobin Oxyhemoglobin Sodium Potassium Chloride Carbon Dioxide BUN Creatinine Glucose POC Glucose 107 H 137 H 117 H Lactic Acid Calcium Magnesium Iron TIBC Ferritin AST ALT Lactate Dehydrogenase Troponin T C-Reactive Protein Total Protein Albumin Prealbumin Cholesterol LDL Cholesterol Direct HDL Cholesterol Urine WBC (Auto) Vancomycin Trough Coronavirus (PCR) Crossmatch 08/27/19 08/27/19 08/27/19 00:59 06:01 07:21 WBC 11.6 H RBC 3.15 L Hgb 8.3 L Hct 26.1 L MCV 83 L MCH 26 L MCHC RDW 18.6 H Plt Count 743 H Lymph % (Auto) 11.8 L [place] % (Auto) 8.8 H Lymph # [place] # 1.0 H Baso # Seg Neutrophils % 75.3 H Seg Neuts % (Manual) Lymphocytes % (Manual) Monocytes % (Manual) Basophils % (Manual) Nucleated RBC % Seg Neutrophils # 8.7 H Seg Neutrophils # Man Lymphocytes # (Manual) Monocytes # (Manual) Eosinophils # (Manual) Basophils # (Manual) PT INR D-Dimer ABG pH ABG pO2 ABG HCO3 ABG O2 Saturation ABG Base Excess ABG Hemoglobin Oxyhemoglobin Sodium Potassium Chloride Carbon Dioxide BUN Creatinine Glucose POC Glucose 126 H 134 H Lactic Acid Calcium Magnesium Iron TIBC Ferritin AST ALT Lactate Dehydrogenase Troponin T C-Reactive Protein Total Protein Albumin Prealbumin Cholesterol LDL Cholesterol Direct HDL Cholesterol Urine WBC (Auto) Vancomycin Trough Coronavirus (PCR) Crossmatch 08/27/19 08/27/19 08/28/19 07:21 18:05 00:37 WBC RBC Hgb Hct MCV MCH MCHC RDW Plt Count Lymph % (Auto) [place] % (Auto) Lymph # [place] # Baso # Seg Neutrophils % Seg Neuts % (Manual) Lymphocytes % (Manual) Monocytes % (Manual) Basophils % (Manual) Nucleated RBC % Seg Neutrophils # Seg Neutrophils # Man Lymphocytes # (Manual) Monocytes # (Manual) Eosinophils # (Manual) Basophils # (Manual) PT INR D-Dimer ABG pH ABG pO2 ABG HCO3 ABG O2 Saturation ABG Base Excess ABG Hemoglobin Oxyhemoglobin Sodium 132 L Potassium 5.1 H Chloride 97.6 L Carbon Dioxide BUN Creatinine 0.3 L Glucose 119 H POC Glucose 127 H 106 H Lactic Acid Calcium Magnesium Iron TIBC Ferritin AST ALT Lactate Dehydrogenase Troponin T C-Reactive Protein Total Protein Albumin Prealbumin Cholesterol LDL Cholesterol Direct HDL Cholesterol Urine WBC (Auto) Vancomycin Trough Coronavirus (PCR) Crossmatch 08/28/19 08/29/19 08/29/19 18:14 00:01 12:16 WBC RBC Hgb Hct MCV MCH MCHC RDW Plt Count Lymph % (Auto) [place] % (Auto) Lymph # [place] # Baso # Seg Neutrophils % Seg Neuts % (Manual) Lymphocytes % (Manual) Monocytes % (Manual) Basophils % (Manual) Nucleated RBC % Seg Neutrophils # Seg Neutrophils # Man Lymphocytes # (Manual) Monocytes # (Manual) Eosinophils # (Manual) Basophils # (Manual) PT INR D-Dimer ABG pH ABG pO2 ABG HCO3 ABG O2 Saturation ABG Base Excess ABG Hemoglobin Oxyhemoglobin Sodium Potassium Chloride Carbon Dioxide BUN Creatinine Glucose POC Glucose 115 H 146 H 107 H Lactic Acid Calcium Magnesium Iron TIBC Ferritin AST ALT Lactate Dehydrogenase Troponin T C-Reactive Protein Total Protein Albumin Prealbumin Cholesterol LDL Cholesterol Direct HDL Cholesterol Urine WBC (Auto) Vancomycin Trough Coronavirus (PCR) Crossmatch 08/30/19 08/30/19 08/30/19 05:10 05:10 05:25 WBC 12.3 H RBC 3.01 L Hgb 8.0 L Hct 25.1 L MCV MCH 27 L MCHC RDW 19.3 H Plt Count 709 H Lymph % (Auto) 8.9 L [place] % (Auto) Lymph # 1.1 L [place] # Baso # Seg Neutrophils % 82.7 H Seg Neuts % (Manual) Lymphocytes % (Manual) Monocytes % (Manual) Basophils % (Manual) Nucleated RBC % Seg Neutrophils # 10.1 H Seg Neutrophils # Man Lymphocytes # (Manual) Monocytes # (Manual) Eosinophils # (Manual) Basophils # (Manual) PT INR D-Dimer ABG pH ABG pO2 ABG HCO3 ABG O2 Saturation ABG Base Excess ABG Hemoglobin Oxyhemoglobin Sodium 133 L Potassium Chloride 97.8 L Carbon Dioxide BUN Creatinine 0.3 L Glucose POC Glucose 106 H Lactic Acid Calcium Magnesium 1.50 L Iron TIBC Ferritin AST ALT Lactate Dehydrogenase Troponin T C-Reactive Protein Total Protein Albumin 2.4 L Prealbumin Cholesterol LDL Cholesterol Direct HDL Cholesterol Urine WBC (Auto) Vancomycin Trough Coronavirus (PCR) Crossmatch 08/30/19 08/30/19 08/31/19 18:26 23:48 05:32 WBC RBC Hgb Hct MCV MCH MCHC RDW Plt Count Lymph % (Auto) [place] % (Auto) Lymph # [place] # Baso # Seg Neutrophils % Seg Neuts % (Manual) Lymphocytes % (Manual) Monocytes % (Manual) Basophils % (Manual) Nucleated RBC % Seg Neutrophils # Seg Neutrophils # Man Lymphocytes # (Manual) Monocytes # (Manual) Eosinophils # (Manual) Basophils # (Manual) PT INR D-Dimer ABG pH ABG pO2 ABG HCO3 ABG O2 Saturation ABG Base Excess ABG Hemoglobin Oxyhemoglobin Sodium Potassium Chloride Carbon Dioxide BUN Creatinine Glucose POC Glucose 139 H 113 H 115 H Lactic Acid Calcium Magnesium Iron TIBC Ferritin AST ALT Lactate Dehydrogenase Troponin T C-Reactive Protein Total Protein Albumin Prealbumin Cholesterol LDL Cholesterol Direct HDL Cholesterol Urine WBC (Auto) Vancomycin Trough Coronavirus (PCR) Crossmatch 09/01/19 09/01/19 09/01/19 04:33 11:43 14:50 WBC RBC Hgb Hct MCV MCH MCHC RDW Plt Count Lymph % (Auto) [place] % (Auto) Lymph # [place] # Baso # Seg Neutrophils % Seg Neuts % (Manual) Lymphocytes % (Manual) Monocytes % (Manual) Basophils % (Manual) Nucleated RBC % Seg Neutrophils # Seg Neutrophils # Man Lymphocytes # (Manual) Monocytes # (Manual) Eosinophils # (Manual) Basophils # (Manual) PT INR D-Dimer ABG pH 7.485 H ABG pO2 483.8 H ABG HCO3 ABG O2 Saturation 99.6 H ABG Base Excess ABG Hemoglobin 8.0 L Oxyhemoglobin Sodium Potassium Chloride Carbon Dioxide BUN Creatinine Glucose POC Glucose 127 H Lactic Acid Calcium Magnesium 1.30 L Iron TIBC Ferritin AST ALT Lactate Dehydrogenase Troponin T C-Reactive Protein Total Protein Albumin Prealbumin Cholesterol LDL Cholesterol Direct HDL Cholesterol Urine WBC (Auto) Vancomycin Trough Coronavirus (PCR) Crossmatch 09/01/19 09/01/19 09/01/19 14:50 17:00 17:28 WBC RBC Hgb Hct MCV MCH MCHC RDW Plt Count Lymph % (Auto) [place] % (Auto) Lymph # [place] # Baso # Seg Neutrophils % Seg Neuts % (Manual) Lymphocytes % (Manual) Monocytes % (Manual) Basophils % (Manual) Nucleated RBC % Seg Neutrophils # Seg Neutrophils # Man Lymphocytes # (Manual) Monocytes # (Manual) Eosinophils # (Manual) Basophils # (Manual) PT INR D-Dimer ABG pH ABG pO2 116.0 H ABG HCO3 ABG O2 Saturation ABG Base Excess ABG Hemoglobin 12.2 L Oxyhemoglobin Sodium 133 L Potassium Chloride Carbon Dioxide BUN Creatinine 0.3 L Glucose 117 H POC Glucose 135 H Lactic Acid Calcium Magnesium Iron TIBC Ferritin AST ALT Lactate Dehydrogenase Troponin T C-Reactive Protein Total Protein Albumin Prealbumin Cholesterol LDL Cholesterol Direct HDL Cholesterol Urine WBC (Auto) Vancomycin Trough Coronavirus (PCR) Crossmatch 09/01/19 09/01/19 09/02/19 23:13 23:35 05:37 WBC RBC Hgb Hct MCV MCH MCHC RDW Plt Count Lymph % (Auto) [place] % (Auto) Lymph # [place] # Baso # Seg Neutrophils % Seg Neuts % (Manual) Lymphocytes % (Manual) Monocytes % (Manual) Basophils % (Manual) Nucleated RBC % Seg Neutrophils # Seg Neutrophils # Man Lymphocytes # (Manual) Monocytes # (Manual) Eosinophils # (Manual) Basophils # (Manual) PT INR D-Dimer ABG pH ABG pO2 ABG HCO3 ABG O2 Saturation ABG Base Excess ABG Hemoglobin Oxyhemoglobin Sodium Potassium Chloride Carbon Dioxide BUN Creatinine Glucose POC Glucose 131 H 110 H 129 H Lactic Acid Calcium Magnesium Iron TIBC Ferritin AST ALT Lactate Dehydrogenase Troponin T C-Reactive Protein Total Protein Albumin Prealbumin Cholesterol LDL Cholesterol Direct HDL Cholesterol Urine WBC (Auto) Vancomycin Trough Coronavirus (PCR) Crossmatch 09/02/19 09/02/19 09/02/19 12:01 17:24 23:39 WBC RBC Hgb Hct MCV MCH MCHC RDW Plt Count Lymph % (Auto) [place] % (Auto) Lymph # [place] # Baso # Seg Neutrophils % Seg Neuts % (Manual) Lymphocytes % (Manual) Monocytes % (Manual) Basophils % (Manual) Nucleated RBC % Seg Neutrophils # Seg Neutrophils # Man Lymphocytes # (Manual) Monocytes # (Manual) Eosinophils # (Manual) Basophils # (Manual) PT INR D-Dimer ABG pH ABG pO2 ABG HCO3 ABG O2 Saturation ABG Base Excess ABG Hemoglobin Oxyhemoglobin Sodium Potassium Chloride Carbon Dioxide BUN Creatinine Glucose POC Glucose 129 H 118 H 133 H Lactic Acid Calcium Magnesium Iron TIBC Ferritin AST ALT Lactate Dehydrogenase Troponin T C-Reactive Protein Total Protein Albumin Prealbumin Cholesterol LDL Cholesterol Direct HDL Cholesterol Urine WBC (Auto) Vancomycin Trough Coronavirus (PCR) Crossmatch 09/03/19 09/04/19 09/04/19 05:24 00:22 05:28 WBC RBC Hgb Hct MCV MCH MCHC RDW Plt Count Lymph % (Auto) [place] % (Auto) Lymph # [place] # Baso # Seg Neutrophils % Seg Neuts % (Manual) Lymphocytes % (Manual) Monocytes % (Manual) Basophils % (Manual) Nucleated RBC % Seg Neutrophils # Seg Neutrophils # Man Lymphocytes # (Manual) Monocytes # (Manual) Eosinophils # (Manual) Basophils # (Manual) PT INR D-Dimer ABG pH ABG pO2 ABG HCO3 ABG O2 Saturation ABG Base Excess ABG Hemoglobin Oxyhemoglobin Sodium Potassium Chloride Carbon Dioxide BUN Creatinine Glucose POC Glucose 114 H 121 H 152 H Lactic Acid Calcium Magnesium Iron TIBC Ferritin AST ALT Lactate Dehydrogenase Troponin T C-Reactive Protein Total Protein Albumin Prealbumin Cholesterol LDL Cholesterol Direct HDL Cholesterol Urine WBC (Auto) Vancomycin Trough Coronavirus (PCR) Crossmatch 09/04/19 09/05/19 09/05/19 18:27 05:46 12:17 WBC RBC Hgb Hct MCV MCH MCHC RDW Plt Count Lymph % (Auto) [place] % (Auto) Lymph # [place] # Baso # Seg Neutrophils % Seg Neuts % (Manual) Lymphocytes % (Manual) Monocytes % (Manual) Basophils % (Manual) Nucleated RBC % Seg Neutrophils # Seg Neutrophils # Man Lymphocytes # (Manual) Monocytes # (Manual) Eosinophils # (Manual) Basophils # (Manual) PT INR D-Dimer ABG pH ABG pO2 ABG HCO3 ABG O2 Saturation ABG Base Excess ABG Hemoglobin Oxyhemoglobin Sodium Potassium Chloride Carbon Dioxide BUN Creatinine Glucose POC Glucose 108 H 110 H 120 H Lactic Acid Calcium Magnesium Iron TIBC Ferritin AST ALT Lactate Dehydrogenase Troponin T C-Reactive Protein Total Protein Albumin Prealbumin Cholesterol LDL Cholesterol Direct HDL Cholesterol Urine WBC (Auto) Vancomycin Trough Coronavirus (PCR) Crossmatch 09/05/19 09/06/19 09/06/19 18:06 00:07 03:45 WBC RBC Hgb Hct MCV MCH MCHC RDW Plt Count Lymph % (Auto) [place] % (Auto) Lymph # [place] # Baso # Seg Neutrophils % Seg Neuts % (Manual) Lymphocytes % (Manual) Monocytes % (Manual) Basophils % (Manual) Nucleated RBC % Seg Neutrophils # Seg Neutrophils # Man Lymphocytes # (Manual) Monocytes # (Manual) Eosinophils # (Manual) Basophils # (Manual) PT INR D-Dimer ABG pH ABG pO2 ABG HCO3 ABG O2 Saturation ABG Base Excess ABG Hemoglobin Oxyhemoglobin Sodium 130 L Potassium Chloride 95.5 L Carbon Dioxide BUN Creatinine 0.3 L Glucose 125 H POC Glucose 116 H 148 H Lactic Acid Calcium Magnesium Iron TIBC Ferritin AST ALT Lactate Dehydrogenase Troponin T C-Reactive Protein Total Protein Albumin Prealbumin Cholesterol LDL Cholesterol Direct HDL Cholesterol Urine WBC (Auto) Vancomycin Trough Coronavirus (PCR) Crossmatch 09/06/19 09/06/19 09/06/19 04:32 05:04 11:45 WBC 11.5 H RBC 2.94 L Hgb 7.9 L Hct 23.9 L MCV 82 L MCH 27 L MCHC RDW 18.5 H Plt Count 778 H Lymph % (Auto) 10.2 L [place] % (Auto) 9.3 H Lymph # [place] # 1.1 H Baso # Seg Neutrophils % 76.1 H Seg Neuts % (Manual) Lymphocytes % (Manual) Monocytes % (Manual) Basophils % (Manual) Nucleated RBC % Seg Neutrophils # 8.8 H Seg Neutrophils # Man Lymphocytes # (Manual) Monocytes # (Manual) Eosinophils # (Manual) Basophils # (Manual) PT INR D-Dimer ABG pH ABG pO2 ABG HCO3 ABG O2 Saturation ABG Base Excess ABG Hemoglobin Oxyhemoglobin Sodium Potassium Chloride Carbon Dioxide BUN Creatinine Glucose POC Glucose 131 H 118 H Lactic Acid Calcium Magnesium Iron TIBC Ferritin AST ALT Lactate Dehydrogenase Troponin T C-Reactive Protein Total Protein Albumin Prealbumin Cholesterol LDL Cholesterol Direct HDL Cholesterol Urine WBC (Auto) Vancomycin Trough Coronavirus (PCR) Crossmatch Allied health notes reviewed: nursing
[2019-09-06 12:58] VITALS: BP 106/60
== END 2019-09-06 13:04 | DRG 3 ==
LOC: EDBD 19:45 → ED 19:45 → CC1 07-04 00:26
PROVIDERS: ADMIT Hospitalist; ATTEND Internal Medicine
PROC: 5A1955Z Respiratory Ventilation, Greater than 96 Consecutive Hours (ICD-10-PCS; principal; 2019-07-03)
PROC: 0BH17EZ Insertion of Endotracheal Airway into Trachea, Via Natural or Artificial Opening (ICD-10-PCS; 2019-07-03)
PROC: 4A033R1 Measurement of Arterial Saturation, Peripheral, Percutaneous Approach (ICD-10-PCS; 2019-07-03)
PROC: 30233N1 Transfusion of Nonautologous Red Blood Cells into Peripheral Vein, Percutaneous Approach (ICD-10-PCS; 2019-07-06)
PROC: 06HY33Z Insertion of Infusion Device into Lower Vein, Percutaneous Approach (ICD-10-PCS; 2019-07-10)
PROC: 0JB70ZZ Excision of Back Subcutaneous Tissue and Fascia, Open Approach (ICD-10-PCS; 2019-08-09)
PROC: 0JB90ZZ Excision of Buttock Subcutaneous Tissue and Fascia, Open Approach (ICD-10-PCS; 2019-08-09)
PROC: 0B113F4 Bypass Trachea to Cutaneous with Tracheostomy Device, Percutaneous Approach (ICD-10-PCS; 2019-08-31)
PROC: 0DH63UZ Insertion of Feeding Device into Stomach, Percutaneous Approach (ICD-10-PCS; 2019-09-01)
PROC: 0BJ08ZZ Inspection of Tracheobronchial Tree, Via Natural or Artificial Opening Endoscopic (ICD-10-PCS; 2019-09-01)
PROC: 06HY33Z Insertion of Infusion Device into Lower Vein, Percutaneous Approach (ICD-10-PCS; 2019-09-04)
DX: A41.89 Other specified sepsis (principal); U07.1 COVID-19; J96.01 Acute respiratory failure with hypoxia; G93.41 Metabolic encephalopathy; L89.154 Pressure ulcer of sacral region, stage 4; R65.21 Severe sepsis with septic shock; J12.89 Other viral pneumonia; N17.0 Acute kidney failure with tubular necrosis; E43 Unspecified severe protein-calorie malnutrition; E87.1 Hypo-osmolality and hyponatremia; I69.351 Hemiplegia and hemiparesis following cerebral infarction affecting right dominant side; E87.2 Acidosis; J44.1 Chronic obstructive pulmonary disease with (acute) exacerbation; K94.23 Gastrostomy malfunction; N39.0 Urinary tract infection, site not specified; M46.28 Osteomyelitis of vertebra, sacral and sacrococcygeal region; M86.68 Other chronic osteomyelitis, other site; K56.7 Ileus, unspecified; D64.9 Anemia, unspecified; E87.5 Hyperkalemia; Z66 Do not resuscitate; G40.909 Epilepsy, unspecified, not intractable, without status epilepticus; I10 Essential (primary) hypertension; G89.29 Other chronic pain; M54.9 Dorsalgia, unspecified; M54.2 Cervicalgia; I25.2 Old myocardial infarction; F20.9 Schizophrenia, unspecified; F31.9 Bipolar disorder, unspecified; I95.9 Hypotension, unspecified; F10.10 Alcohol abuse, uncomplicated; Y90.9 Presence of alcohol in blood, level not specified; Z82.49 Family history of ischemic heart disease and other diseases of the circulatory system; L89.309 Pressure ulcer of unspecified buttock, unspecified stage; E11.621 Type 2 diabetes mellitus with foot ulcer; R13.12 Dysphagia, oropharyngeal phase; L89.95 Pressure ulcer of unspecified site, unstageable; Z68.21 Body mass index [BMI] 21.0-21.9, adult; Y83.9 Surgical procedure, unspecified as the cause of abnormal reaction of the patient, or of later complication, without mention of misadventure at the time of the procedure; L89.159 Pressure ulcer of sacral region, unspecified stage; S31.20XA Unspecified open wound of penis, initial encounter; S31.809A Unspecified open wound of unspecified buttock, initial encounter; S31.30XA Unspecified open wound of scrotum and testes, initial encounter; L97.529 Non-pressure chronic ulcer of other part of left foot with unspecified severity; X58.XXXA Exposure to other specified factors, initial encounter; Y93.89 Activity, other specified; Y92.89 Other specified places as the place of occurrence of the external cause; Y99.8 Other external cause status; Z79.4 Long term (current) use of insulin
CPT/HCPCS: 31720; 36415; 36600; 70450; 71045; 71260; 74018; 74019; 74177; 80048; 80053; 80061; 80074; 80202; 80307; 80320; 81001; 82040; 82140; 82533; 82728; 82803; 82962; 83550; 83615; 83735; 83930; 83935; 84100; 84134; 84145; 84295; 84443; 84484; 84550; 85007; 85014; 85018; 85025; 85027; 85379; 85610; 85730; 86140; 86850; 86900; 86901; 86920; 87040; 87070; 87076; 87086; 87116; 87186; 87205; 87635; 93005; 93010; 94002; 94003; 94760; 99292; G0378; A6260; C9113; G0480; J0456; J0610; J0692; J0696; J1650; J1815; J1940; J1953; J1956; J2250; J2270; J2405; J2543; J2704; J2765; J3010; J3370; J3411; J3475; J3480; J7030; J7040; J7050; J7120; P9016; Q9967; U0003; U0003-CS